=== PATIENT | female | born 1950 | race Caucasian/White ===

== ENCOUNTER 2020-11-20 10:04 | Emergency (ER) | payer MEDICARE, SELFPAY ==
--- NOTE | ~2020-11-20 | XR_ITS ---
XR forearm RT 2V DATE: 11/20/2020 10:28 INDICATION: Fall. Right arm pain, limited range of motion TECHNIQUE: 3 views COMPARISON: None FINDINGS: Comminuted intra-articular radial head and neck fracture with up to approximately 1.7 mm de pression of the medial radial head fragment. No other fracture or dislocation of the radius or ulna is evident. Normal alignment at the elbow and wrist joints. Prominent benign cyst of the lunate bone. IMPRESSION: Radial head and neck fracture Reviewed, dictated and finalized at location A.
--- NOTE | ~2020-11-20 | XR_ITS ---
XR hand RT 2V DATE: 11/20/2020 10:28 INDICATION: Fall. Right upper extremity pain, limited motion TECHNIQUE: 3 views of right hand COMPARISON: None FINDINGS: There is mild chondrocalcinosis at the triangular cartilage. Prominent benign cyst of the l unate bone. Osteoarthritic change at the interphalangeal joints primarily. No fracture or dislocation, periosteal reaction or bone destruction is detected. 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
[2020-11-20 10:13] VITALS: BP 175/62; PULSE 61; RESP 18; TEMP 35.9; O2SAT 99
--- NOTE | 2020-11-20 10:26 | WC.ED.TRAUMA ---
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 Chief complaint is her right arm pain, , abrasions to knees and ankle pain. Patient will be x-rayed for her arm and sent to [place] for further evaluation of head trauma. Patient states there was no LOC, and incident occurred POA Complex medical history including and over the intestine and multiple neurological lesions one at C7 1 in the left humeral area. She has a colostomy. She takes infusions monthly. Is treated at [facility] Related Data Home Medications Medication Instructions Recorded Confirmed gabapentin 11/20/20 olmesartan-hydrochlorothiazide tablet 11/20/20 oxybutynin chloride 11/20/20 simvastatin mg 11/20/20 Allergies Allergy/AdvReac Type Severity Reaction Status Date / Time ezetimibe Allergy Unknown Verified 06/02/14 08:42 ramipril Allergy Unknown Verified 06/02/14 08:42 simvastatin Allergy Unknown Verified 06/02/14 08:42 Review of Systems Review of Systems: Narrative: CONSTITUTIONAL: Denies fever, chills, sweats. EYES: Denies visual changes, redness, discharge. ENT: Denies rhinorrhea, congestion, sore throat, otalgia. CARDIOVASCULAR: Denies chest pain, palpitations, edema. RESPIRATORY: Denies dyspnea, wheezing, cough GASTROINTESTINAL: Denies abdominal pain, nausea, vomiting, diarrhea. GENITOURINARY: Denies dysuria, hematuria, abnormal discharge SKIN: Denies rash or itching. NEUROLOGIC: Denies numbness, or focal weakness. PSYCHIATRIC: Denies anxiety or depression. Right arm pain Hematoma to forehead Abrasion to knees PMFSH Past Medical History Medical History (Updated 11/20/20 @ 10:55 by Ashleigh Wallace CNP) Adenoma of ascending colon High cholesterol HTN (hypertension) Neuropathy Exam Narrative: Exam Narrative: GENERAL: This is a well-nourished, well-developed patient, in moderate distress. HEAD: normocephalic, .Large hematoma on right forehead EYES: PERRL. Sclera clear/white. Vision is grossly intact. EARS: External ears normal, . Hearing grossly intact. NOSE: External nose normal without nasal discharge, nares without redness, THROAT: Mucous membranes moist, NECK: Neck supple, non-tender CARDIOVASCULAR: Regular rate and rhythm without murmurs, gallops, or rubs. RESPIRATORY: Clear to auscultation. Breath sounds equal bilaterally. No wheezes, rales, or rhonchi. GASTROINTESTINAL: Abdomen soft, -patient reports colostomy on left SKIN: warm, multiple abrasions on left medial ankle right knee back of right forearm NEURO: awake, alert, and oriented to person, place and time. There were no obvious focal neurologic abnormalities. Steady gait EXTREMITIES: Normal range of motion of -, patient has pain in the right elbow and forearm and cannot move fingers and wrist radial pulse intact 2+ capillary refill l BACK: Nontender without deformity Course Course Emergency Course: Patient comes to [facility] after falling down flight of stairs will be transferred for head CT after disposition of right arm Xray R hand negative for fracture X-ray right arm shows a radial head neck fracture with no dislocation and normal alignment at the elbow and wrist joints Sugar tong OCL placed by RN and thermoplastic technician Neurovascularly intact before and after OCL placement Patient transferred to [place] Vital Signs Vital signs: Vital Signs Temperature 96.7 F L 11/20/20 10:13 Pulse Rate 61 11/20/20 10:13 Respiratory Rate 18 11/20/20 10:13 Blood Pressure 175/62 H 11/20/20 10:13 Pulse Oximetry 99 11/20/20 10:13 Temperature 96.7 F L 11/20/20 10:13 Pulse Rate 61 11/20/20 10:13
== END 2020-11-20 11:20 | disposition short-term general hospital (02) ==
PROVIDERS: Emergency Provider Nurse Practitioner; PCP Internal Medicine
DX: S90.512A Abrasion, left ankle, initial encounter (principal); S80.211A Abrasion, right knee, initial encounter; S50.811A Abrasion of right forearm, initial encounter; S52.124A Nondisplaced fracture of head of right radius, initial encounter for closed fracture; S00.83XA Contusion of other part of head, initial encounter; W10.9XXA Fall (on) (from) unspecified stairs and steps, initial encounter; E78.00 Pure hypercholesterolemia, unspecified; I10 Essential (primary) hypertension; G62.9 Polyneuropathy, unspecified; Z85.00 Personal history of malignant neoplasm of unspecified digestive organ; Z92.21 Personal history of antineoplastic chemotherapy; Z93.3 Colostomy status
CPT/HCPCS: 29125; 73090; 73120; 99204; A4565; G0463

== ENCOUNTER 2023-12-01 09:51 | Emergency (ER) | payer MEDICARE, SELFPAY ==
--- NOTE | 2023-12-01 10:07 | ED.URI ---
HPI - URI/Sore Throat General Chief Complaint: Upper Respiratory Infection Stated Complaint: Sinus Time Seen by Provider: 12/01/23 10:24 Source: patient, RN notes reviewed and old records reviewed Mode of arrival: ambulatory Limitations: no limitations History of Present Illness HPI Narrative: 73-year-old female presents to the [facility] with approximately a 10 day history of sinus congestion, postnasal drainage, ear drainage in pain. Reports taking DayQuil Related Data Home Medications Medication Instructions Recorded Confirmed gabapentin 600 mg tablet 600 mg PO TID 11/20/20 12/01/23 oxybutynin chloride 5 mg tablet 5 mg PO DAILY 11/20/20 12/01/23 amlodipine 5 mg tablet 5 mg PO DAILY 12/01/23 12/01/23 denosumab 120 mg/1.7 mL (70 mg/mL) 120 mg subcut ONCE 12/01/23 12/01/23 subcutaneous solution (Xgeva) duloxetine 30 mg capsule,delayed 30 mg PO DAILY 12/01/23 12/01/23 release ergocalciferol (vitamin D2) 1,250 1,250 mcg PO WEEKLY 12/01/23 12/01/23 mcg (50,000 unit) capsule levothyroxine 88 mcg tablet 88 mcg PO DAILY 12/01/23 12/01/23 losartan 25 mg tablet 25 mg PO DAILY 12/01/23 12/01/23 octreotide acetate 100 mcg/mL (1 100 mcg subcut Q8H 12/01/23 12/01/23 mL) injection syringe ondansetron HCl 8 mg tablet 9 mg PO DAILY 12/01/23 12/01/23 Allergies Allergy/AdvReac Type Severity Reaction Status Date / Time ezetimibe Allergy Unknown Verified 06/02/14 08:42 ramipril Allergy Unknown Verified 06/02/14 08:42 simvastatin Allergy Unknown Verified 06/02/14 08:42 Review of Systems Review of Systems: All systems reviewed & are unremarkable except as noted in HPI and below Constitutional: Constitutional: Reports no additional constitutional complaints Eyes: Eyes: Reports no additional eye complaints ENT: Reports as per HPI Cardiovascular: Cardiovascular: Reports no additional cardiovascular complaints, Denies chest pain and Denies dyspnea Respiratory: Respiratory: Reports as per HPI, Reports no additional respiratory complaints, Denies chest congestion, Reports cough and Denies dyspnea Gastrointestinal: Gastrointestinal: Reports no additional gastrointestinal complaints, Denies abdominal pain, Denies nausea and Denies vomiting Musculoskeletal: Musculoskeletal: Reports no additional musculoskeletal complaints Integumentary/Breasts: Skin/Breast: Reports system reviewed and no additional complaints, except as docu Neurologic: Reports system reviewed and no additional complaints, except as documented Psychiatric: Psychiatric: Reports no additional psychiatric complaints Allergic/Immunologic: Allergic/Immunologic: Reports no additional allergic/immunologic complaints PMFSH Past Medical History Medical History Adenoma of ascending colon High cholesterol HTN (hypertension) Neuropathy Comments At the time of my signature, I reviewed and agree with the nursing past medical, surgical, social, and family history. There is no relevant family history pertinent to the patient complaint. Exam Const: General: cooperative, healthy appearing, comfortable, no acute distress, well developed, alert and well nourished Nutritional Appearance: well nourished Orientation/consciousness: patient oriented x3 Limitations: no limitations HENMT: Head: normal to inspection Ears: hearing grossly normal bilaterally, external ears normal, EAC's normal, mastoids normal, no periauricular adenopathy and TM abnormal bulging on the right and erythematous on the right Face/Nose/Sinus: Normal external nose present, Normal nares present, Abnormal mucous membranes and turbinates present boggy and erythematous, normal facial exam and face symmetric Face and sinus: normal facial exam, face symmetric and sinus tenderness frontal and maxillary Throat: posterior oropharynx normal, uvula midline and no uvular edema Eyes: General: appearance normal, both eyes and all related structures Alignment
[2023-12-01 10:08] VITALS: BP 140/73; PULSE 103; RESP 18; TEMP 36.9; O2SAT 97
== END 2023-12-01 10:38 | disposition home or self-care (01) ==
PROVIDERS: Emergency Provider Nurse Practitioner; PCP Internal Medicine
DX: H66.91 Otitis media, unspecified, right ear (principal); J01.40 Acute pansinusitis, unspecified; Z20.822 Contact with and (suspected) exposure to COVID-19; E78.00 Pure hypercholesterolemia, unspecified; I10 Essential (primary) hypertension; G62.9 Polyneuropathy, unspecified
CPT/HCPCS: 87081; 87426; 87804; 87880; 99213; G0463

== ENCOUNTER 2024-06-21 10:28 | Emergency (ER) | payer MEDICARE, SELFPAY ==
[2024-06-21] VITALS (26 sets, daily range): BP systolic 87–129; BP diastolic 45–76; PULSE 84–113; RESP 12–43; TEMP 37.1; O2SAT 92–100
--- NOTE | ~2024-06-21 | CT_ITS ---
Non-contrast Head CT History: Head injury, status post fall Technique: Axial non-contrast imaging of the brain was performed. Dose reduction technique was used on this scan by utilizing automated exposure control and iterative reconstruction technique. The dose -length product (DLP) was 756.67 mGy-cm. Findings: There is no evidence of intracranial hemorrhage, mass lesion, or acute infarct. Brain par enchyma appears normal. The ventricles and subarachnoid spaces are normal in size. The calvarium ap pears normal. The visualized paranasal sinuses and mastoid air cells are clear. Impression: No significant abnormality seen. Reviewed, dictated and finalized at [facility]. [employer] ASSISTANT Impression: No significant abnormality seen.
--- NOTE | 2024-06-21 11:46 | ED_ITS ---
HPI - Dizziness General Chief Complaint: Dizziness Stated Complaint: dizzy, fall Time Seen by Provider: 06/21/24 11:11 History of Present Illness HPI Narrative: 73-year-old female presenting after a fall. Patient was just discharged from [place] yesterday after receiving treatment for a neuroendocrine tumor. She had a ureteral stent placed due to new hydronephrosis related to lymphadenopathy. She was also treated for dehydration. States that she felt pretty well when she went home last night but then she had some lightheadedness and she fell in the bathroom. States that she thinks that she brushed her face against her night stand but denies losing consciousness. Complains of some nausea and poor appetite but no further complaints. No chest pain or shortness of breath. No leg swelling. Related Data Home Medications ?Medication ?Instructions ?Recorded ?Confirmed ?Last Taken ?Type gabapentin 600 mg tablet 600 mg PO TID 11/20/20 12/01/23 Unknown History oxybutynin chloride 5 mg tablet 5 mg PO DAILY 11/20/20 12/01/23 Unknown History amlodipine 5 mg tablet 5 mg PO DAILY 12/01/23 12/01/23 Unknown History denosumab 120 mg/1.7 mL (70 mg/mL) 120 mg subcut ONCE 12/01/23 12/01/23 Unknown History subcutaneous solution (Xgeva) duloxetine 30 mg capsule,delayed 30 mg PO DAILY 12/01/23 12/01/23 Unknown History release ergocalciferol (vitamin D2) 1,250 1,250 mcg PO WEEKLY 12/01/23 12/01/23 Unknown History mcg (50,000 unit) capsule levothyroxine 88 mcg tablet 88 mcg PO DAILY 12/01/23 12/01/23 Unknown History losartan 25 mg tablet 25 mg PO DAILY 12/01/23 12/01/23 Unknown History octreotide acetate 100 mcg/mL (1 100 mcg subcut Q8H 12/01/23 12/01/23 Unknown History mL) injection syringe ondansetron HCl 8 mg tablet 9 mg PO DAILY 12/01/23 12/01/23 Unknown History Allergies Allergy/AdvReac Type Severity Reaction Status Date / Time morphine Allergy Intermediate Blister Verified 06/21/24 10:50 ezetimibe Allergy Unknown Unknown Verified 06/21/24 10:50 ramipril Allergy Unknown Unknown Verified 06/21/24 10:50 simvastatin Allergy Unknown Unknown Verified 06/21/24 10:50 Review of Systems 2 Review of Systems: All systems reviewed & are unremarkable except as noted in HPI and below PMFSH Past Medical History Medical History Adenoma of ascending colon Neuropathy High cholesterol HTN (hypertension) Exam 2 Narrative: GENERAL: Nontoxic, no acute distress, pleasant and cooperative HEAD: Normocephalic, atraumatic. EYES: PERRLA and EOMI. ENT: Grossly unremarkable NECK: Supple. CHEST: Clear to auscultation. No respiratory distress. HEART: Regular rate and rhythm. ABDOMEN: Soft, nontender, + ostomy in place EXTREMITIES: Normal range of motion. No edema. SKIN: Warm, dry, no rash. NEURO: No focal deficits. Alert and oriented x3. PSYCH: Normal mood and affect. Course Vital Signs Vital signs: Vital Signs Temperature 98.8 F 06/21/24 10:36 Pulse Rate 96 06/21/24 10:36 Respiratory Rate 19 06/21/24 10:36 Blood Pressure 110/45 L 06/21/24 10:36 Pulse Oximetry 98 06/21/24 10:36 Oxygen Delivery Room Air 06/21/24 10:36 Temperature 98.8 F 06/21/24 10:36 Pulse Rate 99 06/21/24 15:22 Respiratory Rate 19 06/21/24 10:36 Blood Pressure 108/76 06/21/24 15:22 Pulse Oximetry 98 06/21/24 10:36 Oxygen Delivery Room Air 06/21/24 10:36 MDM - Dizziness MDM Narrative Medical decision making narrative: 73-year-old female presenting after a fall from lightheadedness. Vitals are within normal limits. Exam remarkable for the above. Initial orthostatic vital signs are positive. 2 L of fluids have been ordered. Blood work with potassium of 2.9. Oral repletion has been ordered. Orthostatic vital signs following IV fluids are now normal. Patient feels much better. She would like to go home. Discussed trying to increase her potassium rich foods and maybe adding some electrolyte drinks. Advised close follow-up with her [facility] physicians. She and her family are agreeable with this plan. Discharged in stable condition. Lab Data 06/21/24 12:00 06/21/24 12:00 Labs: Lab Results 06/21/24 Range/Units 12:00 WBC 8.3 (4.5-10.0) K/mm3 RBC 3.28 L (4.2-5.4) M/mm3 Hgb 10.4 L (12.0-15.0) g/dL Hct 31.5 L (37.0-47.0) % MCV 96.0 (80-100) fl MCH 31.7 (26-34) pg MCHC 33.0 (32-36) g/dl RDW 14.4 (11.5-14.5) % Plt Count 114 L (150-375) k/mm3 MPV 9.6 (7.4-10.4) fl Immature Gran % (Auto) 1.1 H (0-0.5) % Neut % (Auto) 66.9 (45.5-73.1) % Lymph % (Auto) 20.9 (18.3-44.2) % [place] % (Auto) 10.8 H (2.6-8.5) % Eos % (Auto) 0.1 (0-4.4) % Baso % (Auto) 0.2 (0.2-1.2) % Lymph # (Auto) 1.74 (0.9-3.2) K/mm3 [place] # (Auto) 0.9 H (0.1-0.6) K/mm3 Eos # (Auto) 0.0 (0-0.3) K/mm3 Baso # (Auto) 0.0 (0.0-0.1) K/mm3 Abs Immat Gran (auto) 0.09 H (0.00-0.031) K/mm3 Absolute Neuts (auto) 5.6 (1.3-6.7) K/mm3 Absolute Nucleated RBC 0.000 (0.0-0.012) K/mm3 Nucleated RBC % 0.0 (0.0-0.2) % % Immature Plt Fraction 4.0 (0.9-11.2) % Sodium 131 L (137-145) mmol/L Potassium 2.9 L (3.4-5.0) mmol/L Chloride 103 (98-107) mmol/L Carbon Dioxide 25 (22-30) mmol/L Anion Gap 3 L (4-12) mmol/L BUN 15 (7-17) mg/dL Creatinine 1.40 H (0.7-1.0) mg/dL Estim Creat Clear Calc 30 ml/min Estimated GFR 37 L (59 - ) Glucose 148 H (65-110) mg/dL Calcium 7.5 L (8.4-10.2) mg/dL Magnesium 2.1 (1.6-2.3) mg/dL Total Bilirubin 1.4 H (0.2-1.3) mg/dL AST 973 H (14-36) U/L ALT 636 H (6-35) U/L Alkaline Phosphatase 119 (38-126) U/L Total Protein 6.0 L (6.3-8.2) g/dL Albumin 3.1 L (3.5-5.1) g/dL Lipase 59 (23-300) U/L Imaging Data Radiologist's impression: ITS Impressions Head CT 06/21/24 13:04 Impression: No significant abnormality seen. Critical Care Time Critical Care Time Critical Care Time: No Discharge Plan Discharge Clinical Impression: Orthostatic hypotension, Fall, Hypokalemia Patient Disposition: Home, Self-Care Condition: Stable Instructions: Antibiotic Form, Hypokalemia (ED), Near Syncope (ED) Additional Instructions: You received IV fluids and oral potassium repletion today. Please try to drink electrolyte beverages like Gatorade, Powerade, Pedialyte. Please follow-up closely with your outpatient physicians. If your symptoms worsen or other concerning symptoms arise, please return to the ER. Patient Language: Latvian Prescriptions: No Action gabapentin 600 mg tablet 600 mg PO TID oxybutynin chloride 5 mg tablet 5 mg PO DAILY ondansetron HCl 8 mg tablet 9 mg PO DAILY amlodipine 5 mg tablet 5 mg PO DAILY levothyroxine 88 mcg tablet 88 mcg PO DAILY losartan 25 mg tablet 25 mg PO DAILY ergocalciferol (vitamin D2) 1,250 mcg (50,000 unit) capsule 1,250 mcg PO WEEKLY Xgeva 120 mg/1.7 mL (70 mg/mL) Solution 120 mg SUBCUT ONCE octreotide acetate 100 mcg/mL (1 mL) Syringe 100 mcg SUBCUT Q8H duloxetine 30 mg Capsule,Delayed Release(Dr/Ec) 30 mg PO DAILY amoxicillin-pot clavulanate 875-125 mg tablet 1 tablet PO Q12H Qty: 20 0RF Follow-up/Referrals: Finn,MD Julio César [Primary Care Provider] -
[2024-06-21 12:10] LABS: Basophils Percent Auto 0.2 % (0.2-1.2); Eosinophils Percent Auto 0.1 % (0-4.4); Hematocrit 31.5 % (37.0-47.0); Hemoglobin 10.4 g/dL (12.0-15.0); Immature Granulocyte Absolute 0.09 K/mm3 (0.00-0.031); Immature Granulocyte Percent A 1.1 % (0-0.5); Lymphocytes Absolute Auto 1.74 K/mm3 (0.9-3.2); Lymphocytes Percent Auto 20.9 % (18.3-44.2); Mean Corpuscular Hemoglobin 31.7 pg (26-34); Mean Platelet Volume 9.6 fl (7.4-10.4); Monocytes Absolute Auto 0.9 K/mm3 (0.1-0.6); Monocytes Percent Auto 10.8 % (2.6-8.5); Neutrophils Absolute Auto 5.6 K/mm3 (1.3-6.7); Neutrophils Percent Auto 66.9 % (45.5-73.1); Platelet Count Result 114 k/mm3 (150-375); Red Blood Count 3.28 M/mm3 (4.2-5.4); Red Cell Distribution Width 14.4 % (11.5-14.5); White Blood Count 8.3 K/mm3 (4.5-10.0)
[2024-06-21 12:21] LABS: Alanine Aminotransferase 636 U/L (6-35); Albumin Level 3.1 g/dL (3.5-5.1); Alkaline Phosphatase 119 U/L (38-126); Anion Gap 3 mmol/L (4-12); Bilirubin,Total 1.4 mg/dL (0.2-1.3); Blood Urea Nitrogen 15 mg/dL (7-17); Calcium 7.5 mg/dL (8.4-10.2); Carbon Dioxide 25 mmol/L (22-30); Chloride 103 mmol/L (98-107); Estimated CRCL calculation 30 ml/min; Estimated Glomerular Filt Rate 37; Glucose 148 mg/dL (65-110); Lipase 59 U/L (23-300); Magnesium 2.1 mg/dL (1.6-2.3); Potassium 2.9 mmol/L (3.4-5.0); Sodium 131 mmol/L (137-145)
[2024-06-21 12:25] LABS: Aspartate Amino Transferase 973 U/L (14-36)
[2024-06-21] MEDS: SODIUM CHLORIDE 0.9% IV 1,000 ML 999 ML IV CONT ×2 (12:44→14:08)
[2024-06-21] MEDS: POTASSIUM CHLORIDE 20 MEQ ER TABLET 40 MEQ PO (12:44)
[2024-06-21] MEDS: ONDANSETRON INJ 4 MG/2 ML VIAL IV PUSH (16:04)
--- OUTSIDE RECORDS SUMMARY | 2024-06-25 22:00 | XMS_ITS | Data Portability ---
Author Organization [facility], Main Office Address [address] [place] [address] Care Team Providers Care Emulsion Operator Name Role Phone KATLYN BRISENO Primary Care Provider [phone] KATLYN BRISENO Referring Provider Assessment Encounter Date Assessment Date Assessment LastModified by Organization Details LastModified Time 12/27/2022 12/27/2022 Will treat with doxycycline and she will call if not improved [email or web address] Not available 01/12/2023 15:20:17 07/30/2023 07/30/2023 Will continue current therapy her medicines have been reviewed follow-up in 4 months [email or web address] Not available 08/02/2023 21:24:43 Plan of Treatment Reminders Order Date Submit Date Provider Last Modified By Organization Details Last Modified Time Details Appointments None recorded. Lab None recorded. Referral pipe jeeper referral 2022 023 [email or web address] Nasim Rojas MD, [address], [address], [place], [address], 3 16:55:09 Procedures None recorded. Surgeries None recorded. Imaging None recorded. Medication Orders doxycycline hyclate 100 mg capsule 2022 023 [email or web address] 45 [id number], [address], [place], [place], [id number], 4 14:29:22 Ciprodex 0.3 %-0.1 % ear drops,suspe nsion 2023 024 ENE [facility] #[id number], [address], [place], [place], [id number], 11:27:07 ipratropium bromide 42 mcg (0.06 %) nasal spray 2023 024 ENE [id number], [address], [place], [place], [id number], 11:27:05 Patient TargetsNo targets recorded. Patient Instructions Encounter Date Encounter Id Patient Instructions Last Modified By Organization Details Last Modified Time 04/28/2024 [id number] IF SYMPTOMS PERSIST OR WORSEN AFTER COMPLETION OF MEDICATION PLEASE RETURN TO THE OFFICE FOR FURTHER EVALUATION. [email or web address] Not available 04/28/2024 11:27:20 Reason for Referral Clinic Office Assistant Referral for Perfo ration of right tympanic membrane Referring Physician: Zev Baum, Otolaryngology, Encounter Date: 10/11/2022 Results Created Date Observation Date Name Description Value Unit Range Abnormal Flag Note LastModifiedBy Organization Detail LastModifiedTime 08/23/19 23 08/23/2022 SARS- COV-2 RNA(C OVID1 9),RT -PCR sars-cov-2 RNA(covid19) ,RT-PCR negati ve This test has been autho rized by the FDA under an Emerg ency Use Autho rizat ion (EUA) for use by autho rized labor atori es. Negat sybil resul ts do not precl ude SARS- CoV-2 and shoul d not be used as the sole basis for treat ment or other patie nt manag ement decis ions. Test resul ts shoul d be corre lated with the clini khurram histo ry, epide miolo gical data, and other data avail able to the clini astrid evalu ating the patie nt. Taylor cintron the Fact Sheet s for healt h care provi ders and patie nts at the [facility]: https ://ww w.fda .gov/ media /3880 12/do wnloa d https ://ww w.fda .gov/ media /1367 13/do wnloa d https ://ww w.fda .gov/ media /1421 92/do wnloa d https ://ww w.fda .gov/ media /1421 91/do wnloa d Metho dolog y: Real- Time RT-PC R Not Available [facility] (Lab) [address] [place], [address], 08/23/2022 14:40:33 08/23/19 23 08/23/2022 INFLU KELSEY A/B ANTIG EN RAPID flu A negati ve negati ve Not Available [facility] (Lab) [address] [place], [address], 08/23/2022 14:31:15 08/23/19 23 08/23/2022 INFLU KELSEY A/B ANTIG EN RAPID flu B negati ve negati ve THIS TEST CAN NOT DISTI NGUIS H INFLU KELSEY A VIRUS SUBTY PES. ALSO, PLEAS E NOTE THAT A NEGAT SYBIL RESUL T DOES NOT EXCLU DE INFLU KELSEY VIRUS INFEC TION. IF MORE CONCL USIVE TESTI NG IS CHAD ED, FOLLO W-UP CONFI RMATO RY TESTI NG WITH RT-PC R IS ISABEL BOJORQUEZ. 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 Not Available [facility] (Lab) [address] [place], [address], 08/23/2022 14:31:15 08/23/19 23 08/23/2022 RAPID STREP A DNA strep A DNA, CRISTHIAN negati ve negati ve Not Available [facility] (Lab) [address] [place], [address], 08/23/2022 14:23:19 05/17/20 23 05/17/2023 URINA LYSIS /IRIS W/O MICRO color YELLOW Not Available [facility] (Lab) [address] [place], [address], 05/17/2023 16:31:30 05/17/20 23 05/17/2023 URINA LYSIS /IRIS W/O MICRO appear TURBID abnormal Not Available [facility] (Lab) [address] [place], [address], 05/17/2023 16:31:30 05/17/20 23 05/17/2023 URINA LYSIS /IRIS W/O MICRO specific gravity 1.023 1.001- 1.030 Not Available [facility] (Lab) [address] [place], [address], 05/17/2023 16:31:30 05/17/20 23 05/17/2023 URINA LYSIS /IRIS W/O MICRO pH 5.5 pH_un its 5.0-9. 0 Not Available [facility] (Lab) [address] [place], [address], 05/17/2023 16:31:30 05/17/20 23 05/17/2023 URINA LYSIS /IRIS W/O MICRO leukocytes 25 fabien/u L negati ve- abnormal Not Available [facility] (Lab) [address] [place], [address], 05/17/2023 16:31:30 05/17/20 23 05/17/2023 URINA LYSIS /IRIS W/O MICRO nitrite NEGATI VE negati ve- Not Available [facility] (Lab) [address] [place], [address], 05/17/2023 16:31:30 05/17/20 23 05/17/2023 URINA LYSIS /IRIS W/O MICRO protein 20 mg/dL negati ve- abnormal Not Available [facility] (Lab) [address] [place], [address], 05/17/2023 16:31:30 05/17/20 23 05/17/2023 URINA LYSIS /IRIS W/O MICRO glucose NORMAL mg/dL normal - Not Available [facility] (Lab) [address] [place], [address], 05/17/2023 16:31:30 05/17/20 23 05/17/2023 URINA LYSIS /IRIS W/O MICRO ketones NEGATI VE mg/dL negati ve- Not Available [facility] (Lab) [address] [place], [address], 05/17/2023 16:31:30 05/17/20 23 05/17/2023 URINA LYSIS /IRIS W/O MICRO urobilinogen NORMAL mg/dL normal - Not Available [facility] (Lab) [address] [place], [address], 05/17/2023 16:31:30 05/17/20 23 05/17/2023 URINA LYSIS /IRIS W/O MICRO bilirubin NEGATI VE mg/dL negati ve- Not Available [facility] (Lab) [address] [place], [address], 05/17/2023 16:31:30 05/17/20 23 05/17/2023 URINA LYSIS /IRIS W/O MICRO blood 0.2 mg/dL negati ve- abnormal Not Available [facility] (Lab) [address] [place], [address], 05/17/2023 16:31:30 10/09/19 23 10/08/2022 audio gram + tympa nogra m No observ ation record ed. [email or web address] [facility] [address], [place], [address], 10/10/2022 08:32:54 10/12/19 audio gram + tympa nogra m No observ ation record ed. [email or web address] Not Available 2022 08:54:56 06/14/20 23 06/13/2023 MAMMO , scree danielle, digit al, bilat eral No observ ation record ed. cyahl [facility] [address] [place] [address], [address], 06/16/2023 09:35:07 Result Notes None recorded. Problems Name Problem SNOMED Code Status Onset Date Resolution Date Notes Provider Name and Address Organization Details Recorded Time Perforati on of tympanic membrane 48910952 Active 2022 Not Available [facility] 3 06:30:57 Perforati on of right tympanic membrane 57166423534 68491 Active 2022 Not Available [facility] 3 06:30:56 Mixed conductiv e AND sensorine ural hearing loss 78676752 Active 2022 Not Available [facility] 3 06:30:57 Eruption 526166268 Active 2022 Not Available [facility] 3 06:30:56 Acute urinary tract infection 324870962 Active 2022 Not Available [facility] 3 06:30:57 Hypothyro idism 05815505 Active 2023 Katlyn Briseno MD [address] [facility] [address], [place], [address] , [facility] [employer] [facility] 4 21:24:38 Anterior rhinorrhe a 212126522 Active 2023 CIARA Mueller [address], [facility] [address], [place], [address] , [facility] 4 11:26:05 Acute otitis externa 72207061 Active 2023 Kathy Boyer, 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 CUTTER MACHINE OPERATOR [address] [facility] [address], [address], [address] , [facility] 4 11:26:21 Benign essential hypertens ion 7229492 Active Not Available [facility] 3 06:30:56 Hearing loss 43585619 Active 2021 Not Available [facility] 3 06:30:56 Pain in both feet 31739983260 853869 Active 2021 Not Available [facility] 3 06:30:56 Abdominal pain 33670776 Active Not Available [facility] 3 06:30:56 Osteoarth ritis of knee 488738759 Active Not Available [facility] 3 06:30:56 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 Not Available [facility] 3 06:30:56 Muscle weakness 42532447 Active 2021 Not Available [facility] 3 06:30:56 Pure hyperchol esterolem ia 607356545 Active Not Available [facility] 3 06:30:56 Shoulder joint pain 039146224 Active Not Available [facility] 3 06:30:56 Low back pain 307975345 Active Not Available [facility] 3 06:30:56 Mass of ovary 396449007 Active Not Available [facility] 3 06:30:56 Knee pain Active Not Available [facility] 3 06:30:56 Pain in right foot 41660686472 9107 Active 2021 Not Available [facility] 3 06:30:57 Vitamin D deficienc y 93642064 Completed Not Available [facility] 3 04:49:15 Depressiv e disorder 23314710 Active 2021 Not Available [facility] 3 06:30:57 Hypertens sybil disorder 27879012 Active 05/06/ 2022 Not Available [facility] 3 06:30:57 Disorder of vitamin D 981196211 Active Not Available [facility] 3 06:30:57 Enthesopa thy of knee 45332768 Active Not Available [facility] 3 06:30:57 Vertigo 684775323 Active 2021 Not Available [facility] 3 06:30:57 Blepharit is 71894817 Active Not Available [facility] 3 06:30:57 Nausea 586206611 Active 2021 Not Available [facility] 3 06:30:57 Foot pain 08099220 Active Not Available [facility] 3 06:30:57 Presbycus is 35079939 Active 2022 Not Available [facility] 3 06:30:57 Cough 07756364 Active Not Available [facility] 3 06:30:57 Upper respirato ry infection 26308447 Active 2022 Not Available [facility] 3 06:30:57 Acute upper respirato ry infection 85020872 Active 2022 Not Available [facility] 3 06:30:57 Essential hypertens ion 42369213 Active 2021 Not Available [facility] 3 06:30:57 Diarrhea 27018387 Active Not Available [facility] 3 06:30:57 Problem Notes None recorded. Procedures Surgical History Date Name Laterality Status Provider Name and Address Organization Details Recorded Time 06/07/20 23 Eardrum revision completed Yanet Agarwal RN [place] [facility] 04/28/2024 10:51:04 03/10/20 20 Most Recent Bone Density completed Not Available [facility] 09/05/2022 04:42:17 09/24/19 18 colonoscopy completed Not Available [facility] 09/05/2022 04:42:19 06/08/20 14 Total knee arthroplasty completed Not Available [facility] 09/05/2022 04:42:19 Tonsillectomy completed Not Available [facility] 09/05/2022 04:42:19 Hysterectomy completed Not Available [facility] 09/05/2022 04:42:19 Cholecystectomy completed Not Available [facility] 09/05/2022 04:42:19 colostomy completed Not Available [facility] 09/05/2022 04:42:19 Appendectomy completed Not Available [facility] 09/05/2022 04:42:19 Imaging Results Imaging Date Name Status LastModified by Organiz ation Details LastModified Time 10/08/2022 audiogram + tympanogram completed [email or web address] [facility] [address] [place], [address], 10/10/2022 08:32:54 10/11/2022 audiogram + tympanogram completed [email or web address] Information not available 10/11/2022 08:54:56 06/13/2023 MAMMO, screening, digital, bilateral completed cyahl [facility] [address] [place] [address], [address], 06/16/2023 09:35:07 Procedure Notes None recorded. Medical Equipment None Reported. Allergies Allergen ID Allergen Name Allergen Category Reaction Reaction Severity Criticality Documentation Date Start Date Code Code System Note Provider Name and Address Organization Details Recorded Time 71 Vytorin medicatio n myalgias (muscle pain) Not available Not available 09/05/2022 62359 5 RxNorm Not Available [facility] 3 04:56:35 7124 morphine medicatio n Not available Not available Not available 09/05/2022 7052 RxNorm Not Available [facility] 3 04:56:35 7125 Altace medicatio n cough Not available Not available 09/05/2022 31224 8 RxNorm Not Available [facility] 3 04:56:35 Medications Name Sig Start Date Stop Date Status Note LastModified by Organization Details LastModified Time amoxicill in 500 mg capsule TAKE 4 CAPSULES BY MOUTH 1 HOUR BEFORE APPOINTM ENT 04/28 completed Not Available Not Available Not Available gabapenti n 600 mg tablet TAKE 1 TABLET BY MOUTH THREE TIMES A DAY 04/05 completed PT STOPPED ON HER OWN Not Available Not Available Not Available doxycycli ne hyclate 100 mg capsule TAKE 1 CAPSULE BY MOUTH TWICE DAILY FOR 7 DAYS active Not Available Not Available No t Available azithromy radha 250 mg tablet TAKE 1 DOSE PACK BY MOUTH DIRECTED 10/11 completed Not Available Not Available Not Available benzonata te 200 mg capsule TAKE 1 CAPSULE BY MOUTH THREE TIMES A DAY 12/27 completed Not Available Not Available Not Available sulfameth oxazole 400 mg-trimet hoprim 80 mg tablet TAKE 1 TABLET BY MOUTH EVERY 12 HOURS 11/11 completed Not Available Not Available Not Available hydrocodo ne 5 mg-acetam inophen 325 mg tablet 07/30 completed Not Available Not Available Not Available ondansetr on HCl 8 mg tablet TAKE 1 TABLET BY MOUTH EVERY 8 HOURS NEEDED FOR NAUSEA OR VOMITING . active Not Available Not Available No t Available ondansetr on HCl 4 mg tablet active Not Available Not Available No t Available Medrol (Alfred) 4 mg tablets in a dose pack TakeMDP by oral route as directed 12/14 completed Not Available Not Available Not Available prednison e 20 mg tablet TAKE 2 TABLETS BY MOUTH EVERY DAY FOR 5 DAYS 04/05 completed Not Available Not Available Not Available Synthroid 100 mcg tablet active Not Available Not Available Not Available valsartan 160 mg-hydroc hlorothia zide 12.5 mg tablet 05/08 completed Not Available Not Available Not Available diphenoxy late-atro pine 2.5 mg-0.025 mg tablet TAKE 1 TABLET BY MOUTH 4 (FOUR) TIMES A DAY NEEDED FOR DIARRHEA 08/11 completed Not Available Not Available Not Available metronida zole 500 mg tablet 07/18 completed Not Available Not Available Not Available amlodipin e 5 mg tablet TAKE 1 TABLET BY MOUTH EVERY DAY NEEDED active Not Available Not Available No t Available prochlorp erazine maleate 10 mg tablet TAKE 1 TABLET BY MOUTH EVERY 6 HOURS NEEDED FOR NAUSEA. 07/30 completed Not Available Not Available Not Available ciproflox acin 500 mg tablet 04/28 completed Not Available Not Available Not Available ondansetr on 8 mg disintegr ating tablet TAKE 1 TABLET BY MOUTH EVERY 8 HOURS NEEDED FOR NAUSEA OR VOMITING . 04/28 completed Not Available Not Available Not Available lidocaine -prilocai ne 2.5 %-2.5 % topical cream PLEASE SEE ATTACHED FOR DETAILED DIRECTIO NS active Not Available Not Available No t Available levothyro xine 75 mcg tablet TAKE 1 TABLET (75 MCG TOTAL) BY MOUTH [facility] BEFORE BREAKFAS T 10/11 completed Not Available Not Available Not Available valsartan 80 mg-hydroc hlorothia zide 12.5 mg tablet TAKE 1 TABLET DAILY DIRECTED active Not Available Not Available No t Available oxycodone -acetamin ophen 5 mg-325 mg tablet 11/13 completed Not Available Not Available Not Available levothyro xine 88 mcg tablet TAKE 1 TABLET (88 MCG TOTAL) BY MOUTH [facility] BEFORE BREAKFAS T active Not Available Not Available No t Available ofloxacin 0.3 % ear drops PLACE 4 DROPS INTO RIGHT EAR TWICE DAILY 7 DAYS POST OP 07/30 completed Not Available Not Available Not Available amoxicill in 875 mg tablet 07/30 completed Not Available Not Available Not Available prednisol one acetate 1 % eye drops,khushboo pension INSTILL 1 DROP INTO BOTH EYES THREE TIMES DAILY FOR 1 WEEK 07/30 completed Not Available Not Available Not Available ciproflox acin 0.3 % eye drops 07/30 completed Not Available Not Available Not Available hydrocodo ne 7.5 mg-acetam inophen 325 mg tablet 03/21 completed Not Available Not Available Not Available cephalexi n 500 mg capsule active Not Available Not Available Not Available pantopraz ole 40 mg tablet,de layed release Take 1 tablet every day by oral route. active Not Available Not Available No t Available simvastat in 20 mg tablet TAKE 1 TABLET BY MOUTH EVERY DAY active Not Available Not Available No t Available ferrous sulfate 325 mg (65 mg iron) tablet 01/07 completed Not Available Not Available Not Available clotrimaz ole-betam ethasone 1 %-0.05 % topical cream APPLY EXTERNAL LY TO ABDOMEN TWICE DAILY NEEDED 07/12 completed Not Available Not Available Not Available losartan 25 mg tablet TAKE 1 TABLET BY MOUTH EVERY DAY active Not Available Not Available No t Available niacin 500 mg tablet Take 1 tablet twice a day by oral route. 06/06 completed Not Available Not Available Not Available gabapenti n 300 mg capsule 01/22 completed Not Available Not Available Not Available omeprazol e 20 mg capsule,d elayed release Take 1 capsule every day by oral route. 11/07 completed Not Available Not Available Not Available monteluka st 10 mg tablet Take 1 tablet every day by oral route. 10/25 completed pt stopped Not Available Not Available Not Available sodium chloride 0.9 % intraveno us solution active Not Available Not Available Not Available ergocalci ferol (vitamin D2) 1,250 mcg (50,000 unit) capsule TAKE 1 CAPSULE BY MOUTH 1 TIME A WEEK active Not Available Not Available No t Available lorazepam 1 mg tablet 01/22 completed Not Available Not Available Not Available ibuprofen 600 mg tablet 11/13 completed Not Available Not Available Not Available neomycin 500 mg tablet 11/13 completed Not Available Not Available Not Available albuterol sulfate HFA 90 mcg/actua tion aerosol inhaler INHALE 1 PUFF BY MOUTH EVERY 4 HOURS 05/19 completed Not Available Not Available Not Available ipratropi um bromide 42 mcg (0.06 %) nasal spray USE 2 SPRAYS IN EACH NOSTRIL THREE TIMES DAILY active Not Available Not Available No t Available oxybutyni n chloride 5 mg tablet TAKE 1 TABLET BY MOUTH TWICE DAILY active Not Available Not Available No t Available Zoloft 25 mg tablet Take 1 tablet every day by oral route. 11/07 completed Not Available Not Available Not Available fluticaso ne propionat e 50 mcg/actua tion nasal spray,khushboo pension 2 spray each nostril daily 07/12 completed Not Available Not Available Not Available dicyclomi ne 10 mg capsule Take 1 capsule 3 times a day by oral route. 01/22 completed Not Available Not Available Not Available diazepam 5 mg tablet Take 0.5 tablets twice a day by oral route as needed. 11/13 completed Not Available Not Available Not Available amoxicill in 875 mg-potass ium clavulana te 125 mg tablet TAKE 1 TABLET BY MOUTH EVERY 12 HOURS 04/28 completed Not Available Not Available Not Available amoxicill in 500 mg-potass ium clavulana te 125 mg tablet TAKE 1 TABLET BY MOUTH EVERY 8 HOURS UNTIL ALL TAKEN 07/30 completed Not Available Not Available Not Available oxycodone 5 mg tablet 12/27 completed Not Available Not Available Not Available neomycin- polymyxin -hydrocor t 3.5 mg-10,000 unit/mL-1 % ear drops,khushboo p 11/01 /2017 completed Not Available Not Available Not Available valsartan 160 mg-hydroc hlorothia zide 25 mg tablet Take 1 tablet every day by oral route. 02/06 completed Not Available Not Available Not Available Gentle Laxative (bisacody l) 10 mg rectal supposito ry USE DIRECTED 05/13 completed Not Available Not Available Not Available Vitamin C 500 mg capsule,e xtended release Take 1 capsule every day by oral route. 01/07 completed Not Available Not Available Not Available enoxapari n 30 mg/0.3 mL subcutane ous syringe 03/21 completed Not Available Not Available Not Available enoxapari n 40 mg/0.4 mL subcutane ous syringe active Not Available Not Available Not Available olmesarta n 20 mg-hydroc hlorothia zide 12.5 mg tablet Take 1 tablet every day by oral route. 07/30 completed Not Available Not Available Not Available olmesarta n 40 mg-hydroc hlorothia zide 25 mg tablet TAKE 1 TABLET BY MOUTH DAILY 10/25 completed Not Available Not Available Not Available ciproflox acin 0.3 %-dexamet hasone 0.1 % ear drops,khushboo pension INSTILL 4 DROPS INTO RIGHT EAR TWICE DAILY FOR 7 DAYS active Not Available Not Available No t Available cholestyr amine (with sugar) 4 gram powder for susp in a packet 10/25 completed Not Available Not Available Not Available nitrofura ntoin monohydra te/macroc rystals 100 mg capsule TAKE 1 CAPSULE BY MOUTH EVERY 12 HOURS 07/30 completed Not Available Not Available Not Available trospium 20 mg tablet 11/11 completed Not Available Not Available Not Available duloxetin e 30 mg capsule,d elayed release TAKE 1 CAPSULE BY MOUTH EVERY DAY 07/20 completed changed to 60mg daily by Dr Briseno at visit Not Available Not Available Not Available duloxetin e 60 mg capsule,d elayed release active Not Available Not Available Not Available Zofran PRN for nausea 10/25 completed Not Available Not Available Not Available Vitamin C 2020 active Not Available Not Available Not Avai lable Flonase 2021 active Not Available Not Available Not Avai lable vitamin E 02/21 completed Not Available Not Available Not Available clotrimaz ole-betam ethasone 07/30 completed Not Available Not Available Not Available Imodium A-D 2020 active Not Available Not Available Not Avai lable monteluka st 07/30 completed Not Available Not Available Not Available Lomotil active Not Available Not Avail able Not Available Sandostat in 100mcg/m l 2020 active Not Available Not Available Not Avai lable triamcino lone (bulk) 07/30 completed Not Available Not Available Not Available Zostavax (PF) 19,400 unit/0.65 mL subcutane ous suspensio n active Not Available Not Available Not Available hydrochlo rothiazid e 12.5 mg tablet 05/08 completed Not Available Not Available Not Available CoQ-10 active Not Available Not Availa ble Not Available Simcor 1,000 mg-20 mg tablet,ex tended release Take 1 tablet every day by oral route as directed for 90 days. active Not Available Not Available No t Available Toviaz 4 mg tablet,ex tended release 11/11 completed Not Available Not Available Not Available Afinitor 05/19 completed Not Available Not Available Not Available GaviLyte- N 420 gram oral solution 11/13 completed Not Available Not Available Not Available Gavilyte- C 240 gram-22.7 2 gram-6.72 gram-5.84 gram oral solution 01/07 completed Not Available Not Available Not Available Xgeva 120 mg/1.7 mL (70 mg/mL) subcutane ous solution Inject 1.7 mL every 4 weeks by subcutan eous route. active Not Available Not Available No t Available Xgeva 120mg/1. 7 02/21 completed Not Available Not Available Not Available octreotid e acetate 100 mcg/mL (1 mL) injection syringe 05/12 completed Not Available Not Available Not Available Myrbetriq 50 mg tablet,ex tended release 05/12 completed Not Available Not Available Not Available cabozanti nib 20mg tablet 2021 active Cancer trial medicati on i st gives it to him. Not Available Not Available Not Available Fluzone High-Dose (PF) 180 mcg/0.5 mL intramusc ular syringe active Not Available Not Available Not Available Zofran (base) 12/27 completed Not Available Not Available Not Available Fluzone High-Dose (PF) 180 mcg/0.5 mL intramusc ular syringe active Not Available Not Available Not Available Proctosol HC 2.5 % topical cream perineal applicato r active Not Available Not Available Not Available albuterol sulf 90 mcg/actua tion breath activated powder inhaler,s ensor Inhale 2 puffs every 4 hours by inhalati on route. 10/25 completed Not Available Not Available Not Available Fluzone High-Dose Quad (PF) 240 mcg/0.7 mL IM syringe PHARMACY ADMINIST ERED 07/12 completed Not Available Not Available Not Available Phospho-T rin K500 500 mg soluble tablet TAKE 1 TABLET BY MOUTH TWICE A DAY FOR 14 DAYS 02/21 completed pt states she never took it Not Available Not Available Not Available Colby-Phos Neutral 250 mg tablet active Not Available Not Available Not Available Vitals Date Recorded Body mass index (BMI) Body height Body temperature Body weight Provider Name and Address Organization Details Last Updated DateTime 09/03/2022 30.8 kg/m2 160.02 cm 97.8 [degF] 53464.35 g Not Available [facility] 09/05/2022 04:48:00 Date Recorded Body height Body mass index (BMI) Body weight Body temperature Provider Name and Address Organization Details Last Updated DateTime 10/11/2022 160.02 cm 31.5 kg/m2 57504.44 g 97.9 [degF] Sandhya Joiner CMA [place] [facility] 10/11/2022 15:15:56 Date Recorded Body height Body mass index (BMI) Body weight Body temperature Heart rate Systolic blood pressure Diastolic blood pressure Provider Name and Address Organization Details Last Updated DateTime 160.02 cm 30.5 kg/m2 49985.8 9 g 98.1 [degF] 66 /min 128 mm[Hg] 74 mm[Hg] Hannah badillo RN [facility] [employer] [facility] 3 10:14:43 Date Recorded Body height Body mass index (BMI) Body weight Body temperature Heart rate Systolic blood pressure Diastolic blood pressure Provider Name and Address Organization Details Last Updated DateTime 4 160.02 cm 29.2 kg/m2 57390.7 4 g 97.7 [degF] 83 /min 122 mm[Hg] 64 mm[Hg] ISABELLA Huynh [facility] [employer] [facility] 4 14:31:55 Date Recorded Body height Body mass index (BMI) Body weight Body temperature Provider Name and Address Organization Details Last Updated DateTime 04/28/2024 160.02 cm 29.4 kg/m2 46084.33 g 96.9 [degF] Yanet Agarwal RN [facility] [employer] [facility] 04/28/2024 10:49:30 Social History Question Answer Notes LastModified by Organization Details LastModified Time Tobacco Smoking Status Never Smoker Not Available [facility] 09/05/2022 04:41:37 Do You Have An Advance Directive? No Information Provided MIGRATION.070 [id number] Information not available 09/05/2022 What Is Your Level Of Alcohol Consumption? None MIGRATION.135 [id number] Information not available 09/05/2022 Do You Wear A Helmet When Biking? No MIGRATION.706 4099925 Information not available 09/05/2022 Are You Blind Or Do You Have Difficulty Seeing? Yes Wears Glasses MIGRATION.599 7300260 Information not available 09/05/2022 What Is Your Level Of Caffeine Consumption? Occasional MIGRATION.264 4881457 Information not available 09/05/2022 How Much Tobacco Do You Chew? None MIGRATION.285 7561239 Information not available 09/05/2022 In The 14 Days Before Symptom Onset, Have You Had Close Contact With A Laboratory-conf irmed COVID-19 While That Case Was Ill? No MIGRATION.537 [id number] Information not available 09/05/2022 In The 14 Days Before Symptom Onset, Have You Had Close Contact With A Person Who Is Under Investigation For COVID-19 While That Person Was Ill? No MIGRATION.074 [id number] Information not available 09/05/2022 Are You Deaf Or Do You Have Serious Difficulty Hearing? Yes Wears Hearing Aids MIGRATION.914 [id number] Information not available 09/05/2022 What Type Of Diet Are You Following? REGULAR MIGRATION.989 [id number] Information not available 09/05/2022 Which Illicit Or Recreational Drugs Have You Used? None MIGRATION.769 [id number] Information not available 09/05/2022 Do You Or Have You Ever Used E-cigarettes Or Vape? Never Used Electronic Cigarettes MIGRATION.484 3775632 Information not available 09/05/2022 What Is The Highest Grade Or Level Of School You Have Completed Or The Highest Degree You Have Received? [id number] MIGRATION.935 [id number] Information not available 09/05/2022 What Is Your Occupation? Retired MIGRATION.377 7079056 Information not available 09/05/2022 Have There Been Any Changes To Your Family Or Social Situation? No MIGRATION.484 5111901 Information not available 09/05/2022 What Is The Fluoride Status Of Your Home? Unknown MIGRATION.712 4347366 Information not available 09/05/2022 Are There Any Guns Present In Your Home? Yes MIGRATION.571 6698187 Information not available 09/05/2022 Do You Use Insect Repellent Routinely? No MIGRATION.627 1198698 Information not available 09/05/2022 Where Do You Live? SingleLevelHouse MIGRATION.799 [id number] Information not available 09/05/2022 Do You Have A Medical Power Of Cinder Crane Operator? No MIGRATION.191 3639578 Information not available 09/05/2022 What Was The Date Of Your Most Recent Tobacco Screening? 07/30/2023 [email or web address] Information not available 07/30/2023 Have You Ever Been Counseled For Unhealthy Alcohol Use? No MIGRATION.470 0026672 Information not available 09/05/2022 Do You Have Any Pets? No MIGRATION.375 [id number] Information not available 09/05/2022 What Is Your Relationship Status? MIGRATION.287 [id number] Information not available 09/05/2022 Do You Use Your Seat Belt Or Car Seat Routinely? Yes MIGRATION.858 5904105 Information not available 09/05/2022 Do You Have Smoke And Carbon Monoxide Detectors In Your Home? Yes MIGRATION.835 2934397 Information not available 09/05/2022 Are You Passively Exposed To Smoke? No MIGRATION.002 9590826 Information not available 09/05/2022 Do You Or Have You Ever Used Smokeless Tobacco? Never Used Smokeless Tobacco MIGRATION.188 2033954 Information not available 09/05/2022 Are There Any Smokers In Your House? No MIGRATION.290 8789089 Information not available 09/05/2022 How Much Tobacco Do You Smoke? No MIGRATION.883 2497639 Information not available 09/05/2022 What Types Of Sporting Activities Do You Participate In? None MIGRATION.380 4423696 Information not available 09/05/2022 Do You Feel Stressed (tense, Restless, Nervous, Or Anxious, Or Unable To Sleep At Night)? [id number] MIGRATION.142 3256269 Information not available 09/05/2022 Do You Use Any Illicit Or Recreational Drugs? No MIGRATION.473 7232714 Information not available 09/05/2022 Do You Use Sunscreen Routinely? Yes MIGRATION.076 2354602 Information not available 09/05/2022 Has Tobacco Cessation Counseling Been Provided? No MIGRATION.149 1492631 Information not available 09/05/2022 How Many Years Have You Smoked Tobacco? 0 MIGRATION.994 7991892 Information not available 09/05/2022 Have You Recently Traveled Abroad? No MIGRATION.235 0399115 Information not available 09/05/2022 Do You Have Any Dietary Restrictions? No MIGRATION.408 1625432 Information not available 09/05/2022 Do You Or Have You Ever Used Any Other Forms Of Tobacco Or Nicotine? No MIGRATION.314 7260850 Information not available 09/05/2022 Sex: Female Functional Status Question Answer Note LastModified by Organizat ion Details LastModified Time Do you have difficulty walking or climbing stairs? No MIGRATION.[id number] 026 Information not available 09/05/2022 Do you have transportation difficulties? No MIGRATION.[id number] 026 Information not available 09/05/2022 Are you able to walk? YESWOREST MIGRATION.6694785 026 Information not available 09/05/2022 Do you have difficulty doing errands alone? No MIGRATION.1491585 026 Information not available 09/05/2022 Are you able to care for yourself? Yes MIGRATION.2629149 026 Information not available 09/05/2022 Do you have difficulty dressing or bathing? No MIGRATION.7456067 026 Information not available 09/05/2022 What is your exercise level? Occasional MIGRATION.3901018 026 Information not available 09/05/2022 Mental Status Question Answer Note LastModified by Organizat ion Details LastModified Time Do you have difficulty concentrating, remembering or making decisions? No MIGRATION.[id number] 6 Information not available 09/05/2022 Family History Relationship Description Onset Age of this Age Resolved Age Notes LastModified by Organization Details LastModified Time Mother Myocardial infarction MIGRATION.687 [id number] Not available 09/05/2022 04:42:27 Sister Malignant tumor of breast MIGRATION.415 [id number] Not available 09/05/2022 04:42:27 Notes:GENERAL FAMILY HEARING LOSS Medical History Condition Response NERVE DISEASE N BLINDNESS N RHEUMATIC FEVER N KIDNEY STONES N BLADDER PROBLEMS N MRSA N OTHER # 1 N POLIO N LUNG DISEASE/DISORDER N RADIATION / CHEMOTHERAPY N COPD N Other # 2 N BLOOD DISEASES N EAR OR HEARING PROBLEMS N MUMPS N DEPRESSION (INCLUDING POST ) N BOWEL PROBLEMS N STROKE/TIA N ULCERS N BENIGN PROSTATIC HYPERPLASIA N MEASLES N MYOCARDIAL INFARCTION N OBESITY N GERD/NAUSEA N ANEURYSM N URINARY/BLADDER/KIDNEY PROBLEMS N CORONARY ARTERY DISEASE (CAD) N ADDICTION CONCERNS N Impotence N ENDOMETRIOSIS N USE OF BLOOD THINNERS N SKIN PROBLEMS N GASTROINTESTINAL DISORDER N PERIPHERAL VASCULAR DISEASE N MUSCLE,JOINT OR BONE PROBLEMS N GASTROINTESTINAL BLEEDING N BLOOD CLOTS N ASTHMA N CATARACTS N ERECTILE DYSFUNCTION N VARICOSITIES N GI PROBLEMS N Low Testosterone N INFERTILITY N AIDS/HIV N CHEMOTHERAPY / RADIATION N LIVER DISEASE N MALE HYPOGONADISM N HYPERTENSION Y Deficiency N TOURETTE'S N ANXIETY DISORDER N BLOOD TRANSFUSION N ANEMIA/BLOOD DISORDER N CHRONIC EAR INFECTIONS N BRONCHITIS N TUBERCULOSIS N GLAUCOMA N FOOT PROBLEM N DIVERTICULITIS N SLEEP APNEA N CHICKENPOX N INFECTIOUS DISEASE N PROSTATE N HEART ARRHYTHMIA N INSOMNIA N HIGH CHOLESTEROL / HYPERLIPIDEMIA Y EYE PROBLEMS N HYPERTHYROIDISM N EDEMA N CHRONIC PAIN SYNDROME N HYPOTHYROIDISM N CAROTID BLOCKAGE N CONSTIPATION N BACK / NECK PROBLEMS N HAVE YOU BEEN HOSPITALIZED OR SEEN IN [facility] IN THE PAST YEAR ? N ATHEROSCLEROSIS N BREAST PROBLEMS N DIALYSIS N ECZEMA N OSTEOPOROSIS N ARTHRITIS N APPENDICITIS N DIABETES, TYPE N BAD TEETH N ENT Y HEARTBURN / REFLUX N AUTISM SPECTRUM DISORDER (ASD) N HEPATITIS / LIVER DISEASE N GOUT N SLEEP DISORDER N ALZHEIMER'S DISEASE N Brain Problems N DEMENTIA N HERPES N SEIZURES/EPILEPSY N HEADACHES/MIGRAINES N VASCULAR DISEASE N PACEMAKER N Blood Disorder N DIZZINESS N HEART DISEASE/HEART PROBLEMS N KIDNEY DISEASE N MULTIPLE SCLEROSIS N CANCER: SPECIFY Y CARDIAC ARRHYTHMIA N ATRIAL FIBRILLATION N Gall Stones N PULMONARY EMBOLISM N AUTOIMMUNE DISEASE N Gynecological History Statement/Question Response Date of Last Mammogram 01/13/2021 Date of Last Colonoscopy Most Recent Bone Density 03/10/2020 Obstetrics History GPAL:G 0 P 0 0 0 0 Immunizations Vaccine Type Date Status Note Provider Nam e and Address Organization Details Recorded Time COVID-19, mRNA, LNP-S, PF, 100 mcg/0.5mL dose or 50 mcg/0.25mL dose 1 completed Not Available [facility] 05/21/2023 06:30:58 COVID-19, mRNA, LNP-S, PF, 100 mcg/0.5mL dose or 50 mcg/0.25mL dose 1 completed Not Available [facility] 05/21/2023 06:30:58 COVID-19, mRNA, LNP-S, PF, 100 mcg/0.5mL dose or 50 mcg/0.25mL dose 1 completed Not Available [facility] 05/21/2023 06:30:58 Influenza, high-dose, quadrivalent, PF 0 completed Not Available [facility] 05/21/2023 06:30:58 Influenza, high-dose, trivalent, PF 9 completed Not Available [facility] 05/21/2023 06:30:58 Influenza, high-dose, trivalent, PF 7 completed Not Available [facility] 05/21/2023 06:30:58 zoster live 5 completed Not Available [facility] 05/21/2023 06:30:58 influenza, unspecified formulation 5 completed Not Available [facility] 05/21/2023 06:30:58 influenza, unspecified formulation 4 completed Not Available [facility] 05/21/2023 06:30:58 Pneumococcal conjugate PCV 13 1 completed Not Available [facility] 05/21/2023 06:30:58 pneumococcal polysaccharide PPV23 5 completed Not Available [facility] 05/21/2023 06:30:58 Past Encounters Encounter ID Performer Location Encounter Start Date Encounter Closed Date Diagnosis/Indication Diagnosis SNOMED-CT Code Diagnosis ICD10 Code [id number] [facility] [address] [place] [address] [address] [address] 11/08/2020 00:00:00 11/08/2020 21:58:31 [id number] [facility] [address] [place], [place] [address]e., [address] [address] 11/23/2020 00:00:00 11/23/2020 21:44:21 [id number] [facility] [facility] [address] [facility] , [facility] [place] [address] 03/28/2021 00:00:00 03/28/2021 23:05:28 [id number] [facility] [address] [place], [place] [address]e., [address] [address] 04/05/2021 00:00:00 04/23/2021 21:37:29 [id number] [facility] [address] [place], [place] [address]., [address] [address] 04/14/2021 00:00:00 05/14/2021 21:16:13 [id number] [facility] [address] [place], [place] [address]., [address] [address] 05/19/2021 00:00:00 05/20/2021 10:09:52 [id number] [facility] [address] [place], [place] [address]., [address] [address] 08/11/2021 00:00:00 08/12/2021 13:26:57 [id number] [facility] [address] [place], [place] [address]., [address] [address] 08/16/2021 00:00:00 09/10/2021 11:25:00 [id number] _ATHENA_M IGRATION_ DEFAULT_1 _1 , 08/30/2021 00:00:00 08/30/2021 13:01:35 [id number] [facility] [address] [place], [place] [address]., [address] [address] 10/25/2021 00:00:00 10/25/2021 21:31:41 [id number] [facility] [address] [place] [address] Ave[address] [address] 02/21/2022 00:00:00 02/24/2022 20:57:14 [id number] [facility] [address] [place] [address] Ave[address] [address] 07/18/2022 00:00:00 07/21/2022 18:04:35 [id number] [facility] [address] [place], [place] [address]., [address] [address] 07/20/2022 00:00:00 07/21/2022 14:50:36 [id number] [facility] [address] [place], [place] [address]., [address] [address] 08/15/2022 00:00:00 08/15/2022 22:25:12 [id number] [facility] [place] [address] [place] [address] 09/03/2022 00:00:00 09/03/2022 11:07:04 [id number] Zev Baum MD [facility] [place] [address] [place] [address] 10/11/2022 15:05:59 10/11/2022 16:11:34 Perforation of right tympanic membrane 8159922507 375364 H72.91 Mixed cond uctive AND sensorineural hearing loss 12676495 H90.8 [id number] Katlyn Briseno MD [facility] [address] [place] [address] Ave[address] [address] 12/27/2022 09:50:22 12/27/2022 10:38:17 [facility] [id number] Katlyn Briseno MD [facility] [place] [address] [place] [address] , [facility] [place] [address] 07/30/2023 14:20:43 07/30/2023 17:49:03 Benign essential hypertension 3661636 I10 Pure hypercholesterolemia 370921074 E78.00 Hypothyroidism 19114166 E03.9 [id number] CIARA Mueller [facility] [place] [address] [place] [address] 04/28/2024 10:43:33 04/28/2024 11:27:54 Anterior rhinorrhea 146888700 J34.89 Acute otitis externa 302 63919 H60.509 Health Concerns Section Related Observation LastModified by Organization Detai ls LastModified Time None Recorded Concern Status LastModified by Organization Details LastModified Time None Recorded Advance Directives Directive N: information provided Payers Encounter Date Sequence Insurance Name Policy Number Policy Salter Covered Member ID Salter Member ID Guarantor Name 10/11/2022 1 [place] [id number] [employer] 10/11/2022 2 [employer]ARP HEALTHCARE OPTION - PLAN F (MEDICARE SUPPLEMENT) La M Vivod [id number] [place] [employer]od 12/27/2022 1 [place] [id number] [place] [employer] 12/27/2022 2 [employer] HEALTHCARE OPTION - PLAN F (MEDICARE SUPPLEMENT) La M Vivod [id number] La M Vivod 07/30/2023 1 [place] [id number] La M Vivod 07/30/2023 2 [employer] HEALTHCARE OPTION - PLAN F (MEDICARE SUPPLEMENT) La M Vivod [id number] La M Vivod 04/28/2024 1 [place] Viv[place] [id number] La M Vivod 04/28/2024 2 [employer] HEALTHCARE OPTION - PLAN F (MEDICARE SUPPLEMENT) La M Vivod [id number] La M Vivod Notes Date Note Type Note Provider Name and Address Organization Details Recorded Time 10/11/2022 text/html since the last v isit this patient developed COVID and a right tympanic membrane perforations seen on audiogram. Zev Baum MD [address], [place], [address], [facility] [employer] [facility] 10/11/2022 15:30:45 12/27/2022 text/html Small red spot o n stump she says some clear liquid came out of it Katlyn Briseno MD [address], [place], [address], [facility] [employer] [facility] 01/12/2023 15:20:34 07/30/2023 text/html Hypertension no headache no dizziness dyslipidemia diet been liberalized neuro endocrine tumor has been relatively stable she vacillates with diarrhea from time to time working with her oncology team on that still has the issues with her stoma. Anxiety stable Katlyn Briseno MD [address], [place], [address], [facility] [employer] [facility] 08/02/2023 21:25:01 04/28/2024 text/html This patient has a past medical history significant for hearing loss s/p bilateral hearing aids, neuroendocrine tumor, HLD, and HTN. she presents to the office with a complaint of right ear drainage and popping onset approximately 2-3 weeks ago. she states that she has not seen her PCP for this issue. She does note that she had a perforated eardrum to that ear and had a tympanoplasty completed by Dr. Rojas. She states she has a follow-up with Dr. Rojas in July of 2024. She also endorses chronic rhinorrhea. She states multiple family members have this problem. She denies any nasal congestion, sinus headaches, or sinus pressure. She does not take any lojk-xno-hienyrm medications for this. she also notes that she is in a trial for a chemotherapy medication. CIARA Mueller [address], [place], [address], [facility] [employer] [facility] 04/28/2024 11:27:24 OBGyn Episode No OBEpisode recorded.
--- OUTSIDE RECORDS SUMMARY | 2024-06-25 22:01 | XMS_ITS | Encounter Summary ---
Author Organization [facility] Address [address] [place] [address] Care Team Providers Care Carbide Die Maker Name Role Phone Julio César Briseno MD Primary Care Provider [phone] Reason for Visit * Reason Onset Date Comments Rx Medication Monitoring 09/16/2018 Encounter Details Date Type Department Care Team (Late st Contact Info) Description 09/16/2018 Telephone [facility] [address] [place], [place] [id number] Anne-Marie Dobson MD [address] [place] [address] Rx Medication Monitoring Social History Tobacco Use Types Packs/Day Years Used Date Smoking Tobacco: Never Smokeless Tobacco: Never Alcohol Use Standard Drinks/Week Comments Yes 0 (1 standard drink = 0.6 oz pur e alcohol) Sex and Gender Information Value Date Recorded Sex Assigned at Not on file Gender Identity Not on file Sexual Orientation Not on file documented as of this encounter Miscellaneous Notes * Telephone Encounter - Luciano Stanley RN - 09/17/2018 4:[address] Dobson's message. All questions answered. She agrees to plan. * Telephone Encounter - Luciano Stanley RN - 09/17/2018 4:25 PM CDT LM on a re: please call us back tomorrow for a message from Dr. Dobson. * Telephone Encounter - Anne-Marie Dobson MD - 09/16/2018 4:38 PM CDT So looks like night 690 oz on night and 570. The first is elevated but second not bad,. So lets start having her take her benicar at 3-4 pm and see how that does over about 3-4 nights andthen she can let us know. Can she measure the amount the night before she calls us back to report to see if the fluid shifts are different with changing the diuretic. * Telephone Encounter - Elaine Rg LPN - 09/16/2018 4:02 PM CDT I called the patient She is back from vacation and ready to give her numbers Day one started with bedtime. Threw out first void at 1030 pm. Was up 2 x that night . First void was 6 oz , second void was 9 oz - had a strong urge and got the floor wet. She woke up for the day at 7 am. Voided 13 oz. With strong urge and incont again. Day number 2 void 1030 am 3 oz Noon 1 oz 2 pm 3 oz 5 pm incont - unable to measure anything ( patient had soda during the day - knows this was the problem ) 730 pm 5 oz 10 pm 3 oz went to bed 1 am 9 oz no urge at all - just woke up 3 am 8 oz. 730 am 6 oz up for the day Day 2 9 am 2 oz 2 15 pm 3 oz - thinks must have gone shopping 5 pm 3 oz 7 15 pm 4 oz 1030 pm 3 oz went to bed 1230 am 7 oz 230 am 4 oz 630 am 8 oz - up for day - left for trip. Releases going more at night. We discussed elevating her feet in the late afternoon / early evening and why. She is taking benicar in the am I will get this message to Dr. Dobson and we will call her back for further instructions She is agreeable. * Telephone Encounter - Chaitanya Jasbir - 09/16/2018 9:12 AM CDT Pt would like a call from the nurse to report medication usage. Callback#[phone] documented in this encounter Plan of Treatment Not on file documented as of this encounter Visit Diagnoses Not on filedocumented in this encounter Care Teams Carbide Die Maker Relationship Specialty Start Date End Date Julio César Briseno MD PCP - General 10/23/17 documented as of this encounter
--- OUTSIDE RECORDS SUMMARY | 2024-06-25 22:01 | XMS_ITS | Encounter Summary ---
Author Organization [facility] Address [address] [place] [address] Care Team Providers Care Shrimping Boat Captain Name Role Phone Julio César Briseno MD Primary Care Provider [phone] Reason for Visit * Reason Onset Date Comments Update 10/16/2018 Encounter Details Date Type Department Care Team (Late st Contact Info) Description 10/16/2018 Telephone [facility] [address] [place] [address] Anne-Marie Dobson MD [address] [place] [address] Update Social History Tobacco Use Types Packs/Day Years [...] encounter Miscellaneous Notes * Telephone Encounter - Sandhya Gomez RN - 10/16/2018 12:36 PM CDT RTC to pt. She states that she wanted to let know that the myrbetriq 50 is working wellfor her. She can make it to the bathroom with no problems now. She is asking for refills. I sent in the refills, will forward to Dr. Dobson to let her know medication is working well for pt. All in agreement. * Telephone Encounter - Hien Smith - 10/16/2018 11:56 AM CDT Pt called in stating that she was supposed to follow up as requested by Dr Dobson to let her knowhow the increase on her myrbetriq is doing. Pt stated it is helping. She increased her to 50mg. Pt callback# [phone] documented in this encounter Plan of Treatment Not on file documented as of this encounter Visit Diagnoses Diagnosis Mixed incontinence Mixed incontinence urge and stress (male)(female) documented in this encounter Care Teams Shrimping Boat Captain Relationship Specialty Start Date End Date Julio César Briseno MD PCP - General 10/23/17 documented as of this encounter
--- OUTSIDE RECORDS SUMMARY | 2024-06-25 22:01 | XMS_ITS | Encounter Summary ---
Author Organization [facility] Address [address] [facility] [place] [address] Care Team Providers Care Manager Commission Name Role Phone Julio César Briseno MD Primary Care Provider [phone] Encounter Details Date Type Department Care Team (Late st Contact Info) Description 09/09/2020 Orders Only [facility] - COVID Vaccine [address] [place] [id number] Greyson Arita MD [address] [place] [address] Need for vaccination Social History Tobacco Use Types Packs/Day Years Used Date Smoking Tobacco: Never Smokeless Tobacco: Never Alcohol Use Standard Drinks/Week Comments Yes 0 (1 standard drink = 0.6 oz pur e alcohol) Sex and Gender Information Value Date Recorded Sex Assigned at Not on file Gender Identity Not on file Sexual Orientation Not on file documented as of this encounter Plan of Treatment Not on file documented as of this encounter Visit Diagnoses Diagnosis Need for vaccination Need for prophylactic vaccination and inoculation against unspecified single disease documented in this encounter Care Teams Manager Commission Relationship Specialty Start Date End Date Julio César Briseno MD PCP - General 10/23/17 documented as of this encounter
--- OUTSIDE RECORDS SUMMARY | 2024-06-25 22:01 | XMS_ITS | Continuity of Care Document ---
Author Organization [place] [facility] Address [address] , [address] [place] [address] Care Team Providers Care Revenue Analyst Name Role Phone JULIO CÉSAR BRISENO Primary Care Provider [phone] JULIO CÉSAR BRISENO Referring Provider Assessment No assessment recorded. Plan of Treatment Reminders Order Date Submit Date Provider Last Modified By Organization Details Last Modified Time Details Appointments None recorded. Lab None recorded. Referral None recorded. Procedures None recorded. Surgeries None recorded. Imaging None recorded. Medication Orders Ciprodex 0.3 %-0.1 % ear drops,suspe nsion 2023 [id number], [address] , [place], [place], [phone], 11:27:07 ipratropium bromide 42 mcg (0.06 %) nasal spray 2023 [facility][id number], [address] , [place], [place], [id number], 11:27:05 Patient TargetsNo targets recorded. Patient Instructions Encounter Date Encounter Id Patient Instructions Last Modified By Organization Details Last Modified Time 04/28/2024 [id number] IF SYMPTOMS PERSIST OR WORSEN AFTER COMPLETION OF MEDICATION PLEASE RETURN TO THE OFFICE FOR FURTHER EVALUATION. [email or web address] Not available 04/28/2024 11:27:20 Reason for Referral None Reported. Problems Name Problem SNOMED Code Status Onset Date Resolution Date Notes Provider Name and Address Organization Details Recorded Time Perforati on of tympanic membrane 07263088 Active 2022 Not Available [facility] 3 06:30:57 Perforati on of right tympanic membrane 89769806839 22928 Active 2022 Not Available [facility] 3 06:30:56 Mixed conductiv e AND sensorine ural hearing loss 54898889 Active 2022 Not Available [facility] 3 06:30:57 Eruption 922295633 Active 2022 Not Available [facility] 3 06:30:56 Acute urinary tract infection 262362399 Active 2022 Not Available [facility] 3 06:30:57 Hypothyro idism 18171236 Active 2023 Julio César Briseno MD [address], [place] [address], [place], [address] , [facility] [employer] [facility] [employer] 4 21:24:38 Anterior rhinorrhe a 044866566 Active 2023 CIARA Mueller [address], [place] [address], [place], [address] , [facility] [employer] 4 11:26:05 Acute otitis externa 43193047 Active 2023 CIARA Mueller [address], [place] [address], [place], [address] , [employer] [facility] 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 Not Available [facility] 3 06:30:56 Muscle weakness 90796555 Active 2021 Not Available [facility] 3 06:30:56 Pure hyperchol esterolem ia 918773560 Active Not Available [facility] 3 06:30:56 Shoulder joint pain 973066526 Active Not Available [facility] 3 06:30:56 Low back pain 693933310 Active Not Available [facility] 3 06:30:56 Mass of ovary 657739216 Active Not Available [facility] 3 06:30:56 Knee pain Active Not Available [facility] 3 06:30:56 Pain in right foot 62798466831 9107 Active 2021 Not Available [facility] 3 06:30:57 Vitamin D deficienc y 13266077 Completed Not Available [facility] 3 04:49:15 Depressiv e disorder 84026660 Active 2021 Not Available [facility] 3 06:30:57 Hypertens kenny disorder 06829880 Active 2021 Not Available [facility] 3 06:30:57 Disorder of vitamin D 812004202 Active Not Available [facility] 3 06:30:57 Enthesopa thy of knee 24770488 Active Not Available [facility] 3 06:30:57 Vertigo 172618415 Active 2021 Not Available [facility] 3 06:30:57 Blepharit is 07464844 Active Not Available [facility] 3 06:30:57 Nausea 863550860 Active 2021 Not Available [facility] 3 06:30:57 Foot pain 32041578 Active Not Available [facility] 3 06:30:57 Presbycus is 97622326 Active 2022 Not Available [facility] 3 06:30:57 Cough 09504164 Active Not Available [facility] 3 06:30:57 Upper respirato ry infection 83933080 Active 2022 Not Available [facility] 3 06:30:57 Acute upper respirato ry infection 50980910 Active 2022 Not Available [facility] 3 06:30:57 Essential hypertens ion 19638265 Active 2021 Not Available [facility] 3 06:30:57 Diarrhea 74477861 Active Not Available [facility] 3 06:30:57 Problem Notes None recorded. Procedures Surgical History Date Name Laterality Status Provider Name and Address Organization Details Recorded Time 06/07/20 23 Eardrum revision completed Yanet Agarwal RN [place] - [facility] 04/28/2024 10:51:04 03/10/20 Most Recent Bone Density completed Not Available [facility] 09/05/2022 04:42:17 09/24/19 18 colonoscopy completed Not Available [facility] 09/05/2022 04:42:19 06/08/20 14 Total knee arthroplasty completed Not Available [facility] 09/05/2022 04:42:19 Tonsillectomy completed Not Available [facility] 09/05/2022 04:42:19 Hysterectomy completed Not Available [facility] 09/05/2022 04:42:19 Cholecystectomy completed Not Available [facility] 09/05/2022 04:42:19 colostomy completed Not Available [facility] 09/05/2022 04:42:19 Appendectomy completed Not Available [facility] 09/05/2022 04:42:19 Imaging Results None recorded. Procedure Notes None recorded. Medical Equipment None Reported. Allergies Allergen ID Allergen Name Allergen Category Reaction Reaction Severity Criticality Documentation Date Start Date Code Code System Note Provider Name and Address Organization Details Recorded Time 7121 Vytorin medicatio n myalgias (muscle pain) Not available Not available 09/05/2022 17650 5 RxNorm Not Available [facility] 3 04:56:35 7124 morphine medicatio n Not available Not available Not available 09/05/2022 7052 RxNorm Not Available [facility] 3 04:56:35 7125 Altace medicatio n cough Not available Not available 09/05/2022 20292 8 RxNorm Not Available [facility] 3 04:56:35 Medications Name Sig Start Date [...] 1 TABLET (75 MCG TOTAL) BY MOUTH FILLING AND STAPLING MACHINE OPERATOR BEFORE BREAKFAS T 10/11 completed Not Available Not Available Not Available valsartan 80 mg-hydroc hlorothia zide 12.5 mg tablet TAKE 1 TABLET DAILY DIRECTED active Not Available Not Available No t Available oxycodone -acetamin ophen 5 mg-325 mg tablet 11/13 completed Not Available Not Available Not Available levothyro xine 88 mcg tablet TAKE 1 TABLET (88 MCG TOTAL) BY MOUTH FILLING AND STAPLING MACHINE OPERATOR BEFORE BREAKFAS T active Not Available Not [...] 3.5 mg-10,000 unit/mL-1 % ear drops,khushboo p 05/08 completed Not Available Not Available Not [...] tablet 2021 active Cancer trial medicati on speciali st gives it to him. Not Available [...] Available Not Available Vitals Date Recorded Body height Body mass index (BMI) Body weight Body temperature Provider Name and Address Organization Details Last Updated DateTime 04/28/2024 160.02 cm 29.4 kg/m2 35367.33 g 96.9 [degF] Yanet Agarwal RN [place] - [facility] [employer] 04/28/2024 10:49:30 Social History Question Answer Notes LastModified by Organization Details LastModified Time Tobacco Smoking Status Never Smoker Not Available [facility] 09/05/2022 04:41:37 Do You Have An Advance Directive? No Information Provided MIGRATION.035 [id number] Information not available 09/05/2022 What Is Your Level Of Alcohol Consumption? None MIGRATION.924 8476390 Information not available 09/05/2022 Do You Wear A Helmet When Biking? No MIGRATION.170 5364477 Information not available 09/05/2022 Are You Blind Or Do You Have Difficulty Seeing? Yes Wears Glasses MIGRATION.681 3442815 Information not available 09/05/2022 What Is Your Level Of Caffeine Consumption? Occasional MIGRATION.456 0692875 Information not available 09/05/2022 How Much Tobacco Do You Chew? None MIGRATION.588 0679666 Information not available 09/05/2022 In The 14 Days Before Symptom Onset, Have You Had Close Contact With A Laboratory-conf irmed COVID-19 While That Case Was Ill? No MIGRATION.942 [id number] Information not available 09/05/2022 In The 14 Days Before Symptom Onset, Have You Had Close Contact With A Person Who Is Under Investigation For COVID-19 While That Person Was Ill? No MIGRATION.251 1635853 Information not available 09/05/2022 Are You Deaf Or Do You Have Serious Difficulty Hearing? Yes Wears Hearing Aids MIGRATION.353 9406082 Information not available 09/05/2022 What Type Of Diet Are You Following? REGULAR MIGRATION.081 3743851 Information not available 09/05/2022 Which Illicit Or Recreational Drugs Have You Used? None MIGRATION.844 6836148 Information not available 09/05/2022 Do You Or Have You Ever Used E-cigarettes Or Vape? Never Used Electronic Cigarettes MIGRATION.572 8988838 Information not available 09/05/2022 What Is The Highest Grade Or Level Of School You Have Completed Or The Highest Degree You Have Received? NT06659-5 MIGRATION.439 3879467 Information not available 09/05/2022 What Is Your Occupation? Retired MIGRATION.534 3620021 Information not available 09/05/2022 Have There Been Any Changes To Your Family Or Social Situation? No MIGRATION.716 4181137 Information not available 09/05/2022 What Is The Fluoride Status Of Your Home? Unknown MIGRATION.886 3883382 Information not available 09/05/2022 Are There Any Guns Present In Your Home? Yes MIGRATION.621 [id number] Information not available 09/05/2022 Do You Use Insect Repellent Routinely? No MIGRATION.098 4696145 Information not available 09/05/2022 Where Do You Live? [place]LevelHouse MIGRATION.331 6580091 Information not available 09/05/2022 Do You Have A Medical Power Of Appliance Line Assembler? No MIGRATION.612 0075287 Information not available 09/05/2022 What Was The Date Of Your Most Recent Tobacco Screening? 07/30/2023 [email or web address] Information not available 07/30/2023 Have You Ever Been Counseled For Unhealthy Alcohol Use? No MIGRATION.514 4187248 Information not available 09/05/2022 Do You Have Any Pets? No MIGRATION.668 2694144 Information not available 09/05/2022 What Is Your Relationship Status? MIGRATION.085 1070408 Information not available 09/05/2022 Do You Use Your Seat Belt Or Car Seat Routinely? Yes MIGRATION.471 8917815 Information not available 09/05/2022 Do You Have Smoke And Carbon Monoxide Detectors In Your Home? Yes MIGRATION.868 1489501 Information not available 09/05/2022 Are You Passively Exposed To Smoke? No MIGRATION.214 0211008 Information not available 09/05/2022 Do You Or Have You Ever Used Smokeless Tobacco? Never Used Smokeless Tobacco MIGRATION.532 6065831 Information not available 09/05/2022 Are There Any Smokers In Your House? No MIGRATION.455 7355308 Information not available 09/05/2022 How Much Tobacco Do You Smoke? No MIGRATION.724 1299426 Information not available 09/05/2022 What Types Of Sporting Activities Do You Participate In? None MIGRATION.336 8730076 Information not available 09/05/2022 Do You Feel Stressed (tense, Restless, Nervous, Or Anxious, Or Unable To Sleep At Night)? [id number] MIGRATION.921 4532821 Information not available 09/05/2022 Do You Use Any Illicit Or Recreational Drugs? No MIGRATION.937 8764985 Information not available 09/05/2022 Do You Use Sunscreen Routinely? Yes MIGRATION.989 8974838 Information not available 09/05/2022 Has Tobacco Cessation Counseling Been Provided? No MIGRATION.411 0043740 Information not available 09/05/2022 How Many Years Have You Smoked Tobacco? 0 MIGRATION.451 0963568 Information not available 09/05/2022 Have You Recently Traveled Abroad? No MIGRATION.131 7092299 Information not available 09/05/2022 Do You Have Any Dietary Restrictions? No MIGRATION.634 2022451 Information not available 09/05/2022 Do You Or Have You Ever Used Any Other Forms Of Tobacco Or Nicotine? No MIGRATION.457 5954549 Information not available 09/05/2022 Sex: Female Functional Status Question Answer Note LastModified by Organizat [employer] Details LastModified Time Do you have difficulty walking or climbing stairs? No MIGRATION.8981142 026 Information not available 09/05/2022 Do you have transportation difficulties? No MIGRATION.1477402 026 Information not available 09/05/2022 Are you able to walk? YESWOREST MIGRATION.6196516 026 Information not available 09/05/2022 Do you have difficulty doing errands alone? No MIGRATION.3614554 026 Information not available 09/05/2022 Are you able to care for yourself? Yes MIGRATION.6018695 026 Information not available 09/05/2022 Do you have difficulty dressing or bathing? No MIGRATION.7163310 026 Information not available 09/05/2022 What is your exercise level? Occasional MIGRATION.3720439 026 Information not available 09/05/2022 Mental Status Question Answer Note LastModified by Organ[employer] Details LastModified Time Do you have difficulty concentrating, remembering or making decisions? No MIGRATION.[id number] 6 Information not available 09/05/2022 Family History Relationship Description Onset Age of this Age Resolved Age Notes LastModified by Organization Details LastModified Time Mother Myocardial infarction MIGRATION.164 [id number] Not available 09/05/2022 04:42:27 Sister Malignant tumor of breast MIGRATION.299 4014874 Not available 09/05/2022 04:42:27 Notes:GENERAL FAMILY HEARING LOSS Medical History Condition Response NERVE DISEASE N BLINDNESS N RHEUMATIC FEVER N KIDNEY STONES N BLADDER PROBLEMS N MRSA N OTHER # 1 N POLIO N LUNG DISEASE/DISORDER N RADIATION / CHEMOTHERAPY N COPD N Other # 2 N BLOOD DISEASES N EAR OR HEARING PROBLEMS N MUMPS N BOWEL PROBLEMS N DEPRESSION (INCLUDING POST ) N STROKE/TIA N ULCERS N BENIGN PROSTATIC [...] N CHRONIC PAIN SYNDROME N HYPOTHYROIDISM N CONSTIPATION N CAROTID BLOCKAGE N BACK / NECK PROBLEMS N HAVE YOU BEEN HOSPITALIZED OR SEEN IN [facility] IN THE PAST YEAR ? N [...] 50 mcg/0.25mL dose 1 completed Not Available [facility] 05/21/2023 06:30:58 COVID-19, mRNA, LNP-S, PF, 100 mcg/0.5mL dose or 50 mcg/0.25mL dose 1 completed Not Available [facility] 05/21/2023 06:30:58 COVID-19, mRNA, LNP-S, PF, 100 mcg/0.5mL dose or 50 mcg/0.25mL dose 1 completed Not Available [facility] 05/21/2023 06:30:58 Influenza, high-dose, quadrivalent, PF 0 completed Not Available [facility] 05/21/2023 06:30:58 Influenza, high-dose, trivalent, PF 9 completed Not Available [facility] 05/21/2023 06:30:58 Influenza, high-dose, trivalent, PF 7 completed Not Available [facility] 05/21/2023 06:30:58 zoster live 5 completed Not Available [facility] 05/21/2023 06:30:58 influenza, unspecified formulation 5 completed Not Available [facility] 05/21/2023 06:30:58 influenza, unspecified formulation 4 completed Not Available [facility] 05/21/2023 06:30:58 Pneumococcal conjugate PCV 13 1 completed Not Available [facility] 05/21/2023 06:30:58 pneumococcal polysaccharide PPV23 5 completed Not Available [facility] 05/21/2023 06:30:58 Past Encounters Encounter ID Performer Location Encounter Start Date Encounter Closed Date Diagnosis/Indication Diagnosis SNOMED-CT Code Diagnosis ICD10 Code [id number] CIARA Mueller [facility] [address] [place] [address] 04/28/2024 10:43:33 04/28/2024 11:27:54 Anterior rhinorrhea 782030761 J34.89 Acute otitis externa 302 72618 H60.509 Health Concerns Section Related Observation LastModified by Organization Detai ls LastModified Time None Recorded Concern Status LastModified by Organization Details LastModified Time None Recorded Payers Encounter Date Sequence Insurance Name Policy Number Policy Salter Covered Member ID Salter Member ID Guarantor Name 04/28/2024 1 [place] La Schwarz [employer] [id number] La Schwarz [employer] 04/28/2024 2 [facility] OPTION - PLAN F (MEDICARE SUPPLEMENT) La Schwarz Vivod [id number] La Chung Notes Date Note Type Note Provider Name and Address Organization Details Recorded Time 04/28/2024 text/html This patient has a past [...] sinus pressure. She does not take any xmbg-mbt-oenawqx medications for this. she also notes that she is in a trial for a chemotherapy medication. Kathy Boyer, [employer] [address] [facility], [place] [address], [place], [address], [facility] 04/28/2024 11:27:24 OBGyn Episode No OBEpisode recorded.
--- OUTSIDE RECORDS SUMMARY | 2024-06-25 22:01 | XMS_ITS | Continuity of Care Document ---
Author Organization [facility] Shaka ALONZO (Adult Med) Address [address] [place] [address] Care Team Providers Care Copy Holder Name Role Phone JULIO CÉSAR BRISENO Primary Care Provider [phone] Assessment Encounter Date Assessment Date Assessment LastModified by Organization Details LastModified Time 04/08/2024 04/08/2024 blood pressure is doing fine flu shot today healthy lifestyle care instructions she will go back on her duloxetine says she has not been taking and I told her for the 1st week she may get nauseated she will follow up with me in a month diagnosis have been discussed all questions have been answered [email or web address] Not available 04/26/2024 14:19:59 Plan of Treatment Reminders Order Date Submit Date Provider Last Modified By Organization Details Last Modified Time Details Appointments ANY 15 025 09:15AM Julio César Briseno MD Not available Not available Not available Lab None record ed. Referral None record ed. Procedures None record ed. Surgeries None record ed. Imaging None record ed. Medication Orders None record ed. Patient TargetsNo targets recorded. Patient Instructions Encounter Date Encounter Id Patient Instructions Last Modified By Organization Details Last Modified Time 04/08/2024 [id number] A healthy lifestyle: care instructions [email or web address] Not available 04/08/2024 12:26:46 Reason for Referral None Reported. Results Created Date Observation Date Name Description Value Unit Range Abnormal Flag Note LastModifiedBy Organization Detail LastModifiedTime 06/21/20 24 06/21/2024 CT, brain , w/wo contr ast No observ ation record ed. [facility] [address], [place], [address], 06/22/2024 11:20:04 Result Notes None recorded. Problems Name Problem SNOMED Code Status Onset Date Resolution Date Notes Provider Name and Address Organization Details Recorded Time Essential hypertension 97566802 Active 2023 Julio César Briseno MD Attn: Jannet bains,[address] [facility], [place], [address], [place] - [facility] 4 15:31:28 Hyperlipidemia 84127341 Active 2023 Julio César Briseno MD Attn: Jannet bains,[address], [place], [address], [place] [facility] 4 15:31:29 Hypothyroidism 77750232 Active 2023 Julio César Briseno MD Attn: Jannet bains,[address] [facility], [place], [address], [place] [facility] 4 15:31:35 Neuroendocrine tumor 359530601 Active 2023 Julio César Briseno MD Attn: Jannet bains,[address] [facility], [place], [address], [place] [facility] 4 15:31:36 Anxiety 01922034 Active 2023 Julio César Briseno MD Attn: Jannet bains,[address] [facility], [place], [address], [place] [facility] 4 15:31:40 Vitamin D deficiency 07206379 Active 2023 Jerman Metz [place] null, [place] - [facility] 12:42:00 Problem Notes None recorded. Procedures Surgical History Date Name Laterality Status Provider Name and Address Organization Details Recorded Time Appendectomy completed IRIS Quan - [facility] 10/08/2023 11:13:30 Cholecystectomy completed Kim Roque [place] - [facility] 10/08/2023 11:13:37 Gastrointestinal Surgery completed IRIS Quan - [facility] 10/08/2023 11:13:42 Joint Replacement completed Baldemar Roque [place] - [facility] 10/08/2023 11:13:50 Tonsillectomy completed IRIS Quan - [facility] 10/08/2023 11:13:58 Knee Surgery completed Kim Roque [place] - [facility] 10/08/2023 11:14:04 Dilation and Curettage completed Kim Roque MA [facility] 10/08/2023 11:14:10 Total hysterectomy completed Demetrius Roque MA [facility] 10/08/2023 11:14:15 Imaging Results None recorded. Procedure Notes None recorded. Medical Equipment None Reported. Allergies Allergen ID Allergen Name Allergen Category Reaction Reaction Severity Criticality Documentation Date Start Date Code Code System Note Provider Name and Address Organization Details Recorded Time 16880108 Vytorin medicatio n Not available Not available Not available 10/08/2023 doesn 't remem cora Belkys Rosario darrius, [facility] 4 09:52:04 935178 Altace medicatio n cough Not available Not available 10/08/2023 82996 8 RxNorm IRIS Quan [facility] 4 11:12:56 198144 morphine medicatio n rash Not available Not available 10/08/2023 7052 RxNorm IRIS Quan [facility] 4 11:13:07 Medications Name Sig Start Date Stop Date Status Note LastModified by Organization Details LastModified Time amoxicilli n 500 mg capsule TAKE 4 CAPSULES BY MOUTH 1 HOUR BEFORE APPOINTME NT 04/08 completed Not Available Not Available Not Available doxycyclin e hyclate 100 mg capsule TAKE 1 CAPSULE BY MOUTH TWICE DAILY FOR 7 DAYS 10/07 completed Not Available Not Available Not Available benzonatat e 200 mg capsule TAKE 1 CAPSULE BY MOUTH THREE TIMES A DAY 10/07 completed Not Available Not Available Not Available hydrocodon e 5 mg-acetami nophen 325 mg tablet 10/07 completed Not Available Not Available Not Available ondansetro n HCl 8 mg tablet Take 1 tablet every 8 hours by oral route as needed for 30 days. active Not Available Not Available No t Available Synthroid 100 mcg tablet TAKE 1 TABLET DAILY BEFORE BREAKFAST active Not Available Not Available No t Available amlodipine 5 mg tablet TAKE 1 TABLET DAILY NEEDED active Not Available Not Available No t Available ciprofloxa radha 500 mg tablet 04/08 completed Not Available Not Available Not Available Ditropan 5 mg tablet Take 1 tablet twice a day by oral route. 04/08 completed D/C per Dr Briseno at visit 4. Not Available Not Available Not Available ondansetro n 8 mg disintegra ting tablet TAKE 1 TABLET BY MOUTH EVERY 8 HOURS NEEDED FOR NAUSEA OR VOMITING. 10/07 completed Not Available Not Available Not Available levothyrox ine 88 mcg tablet TAKE 1 TABLET BY MOUTH ONCE DAILY BEFORE BREAKFAST 02/02 completed Not Available Not Available Not Available ofloxacin 0.3 % ear drops PLACE 4 DROPS INTO RIGHT EAR TWICE DAILY 7 DAYS POST OP 10/07 completed Not Available Not Available Not Available amoxicilli n 875 mg tablet 10/07 completed Not Available Not Available Not Available prednisolo ne acetate 1 % eye drops,susp ension INSTILL 1 DROP INTO BOTH EYES THREE TIMES DAILY FOR 1 WEEK 10/07 completed Not Available Not Available Not Available ciprofloxa radha 0.3 % eye drops 10/07 completed Not Available Not Available Not Available simvastati n 20 mg tablet Take 1 tablet every day by oral route. active Not Available Not Available No t Available losartan 25 mg tablet TAKE 1 TABLET DAILY active Not Available Not Available No t Available sodium chloride 0.9 % intravenou s solution 10/07 completed Not Available Not Available Not Available ergocalcif oksana (vitamin D2) 1,250 mcg (50,000 unit) capsule TAKE 1 CAPSULE BY MOUTH EVERY WEEK active Not Available Not Available No t Available ipratropiu m bromide 42 mcg (0.06 %) nasal spray [place] 1 spray twice a day by nasal route for 13 days. active Not Available Not Available No t Available amoxicilli n 875 mg-potassi um clavulanat e 125 mg tablet TAKE 1 TABLET BY MOUTH EVERY 12 HOURS 04/08 completed Not Available Not Available Not Available amoxicilli n 500 mg-potassi um clavulanat e 125 mg tablet TAKE 1 TABLET BY MOUTH EVERY 8 HOURS UNTIL ALL TAKEN 10/07 completed Not Available Not Available Not Available ciprofloxa radha 0.3 %-dexameth asone 0.1 % ear drops,susp ension Instill 4 drops twice a day by otic route for 7 days. 05/15 completed Right ear Not Available Not Available Not Available nitrofuran toin monohydrat e/macrocry stals 100 mg capsule TAKE 1 CAPSULE BY MOUTH EVERY 12 HOURS 10/07 completed Not Available Not Available Not Available duloxetine 30 mg capsule,de layed release Take 1 capsule every day by oral route. active Not Available Not Available No t Available duloxetine 60 mg capsule,de layed release Take 1 capsule every day by oral route. active Not Available Not Available No t Available Xgeva 120 mg/1.7 mL (70 mg/mL) subcutaneo us solution Inject 1.7 mL every 4 weeks by subcutane ous route. active Not Available Not Available No t Available Sandostati n LAR Depot 30 mg intramuscu lar susp,exten ded release Inject 30 mg every month by intramusc ular route. active Not Available Not Available No t Available cabozantin ib 60 mg tablet Take 1 tablet every day by oral route. 05/15 completed Not Available Not Available Not Available Cabometyx 20 mg tablet 05/15 completed Not Available Not Available Not Available Colby-Phos Neutral 250 mg tablet 10/07 completed Not Available Not Available Not Available Vitals Date Recorded Body height Body mass index (BMI) Body weight Heart rate Oxygen saturation Oxygen saturation in Arterial blood by Pulse oximetry Systolic blood pressure Diastolic blood pressure Provider Name and Address Organization Details Last Updated DateTime 4 160.02 cm 28.3 kg/m2 00261.4 2 g 77 /min 97 % 97 % 122 mm[Hg] 66 mm[Hg] Sonia Sparks MA [facility] 4 11:16:24 Social History Question Answer Notes LastModified by Organizat ion Details LastModified Time Tobacco Smoking Status Never Smoker Kim Roque MA [facility], [place] - [facility] 10/08/2023 11:15:25 Do You Have An Advance Directive? No Working On [email or web address] Information not available 04/29/2024 What Is Your Level Of Alcohol Consumption? None Information not available 10/08/2023 Are You Blind Or Do You Have Difficulty Seeing? No Information not available 10/08/2023 What Is Your Level Of Caffeine Consumption? Heavy Information not available 01/07/2024 In The 14 Days Before Symptom Onset, Have You Had Close Contact With A Laboratory-confir Symptom.ly COVID-19 While That Case Was Ill? No Information not available 01/07/2024 In The 14 Days Before Symptom Onset, Have You Had Close Contact With A Person Who Is Under Investigation For COVID-19 While That Person Was Ill? No Information not available 01/07/2024 Have You Been To An Area Known To Be High Risk For COVID-19? No Information not available 01/07/2024 Are You Currently Employed? No Information not available 01/07/2024 Are You Deaf Or Do You Have Serious Difficulty Hearing? Yes Hearing Aids, Ear Surgery Information not available 10/08/2023 What Type Of Diet Are You Following? REGULAR Information not available 01/07/2024 What Is The Highest Grade Or Level Of School You Have Completed Or The Highest Degree You Have Received? [id number] Information not available 04/29/2024 Are There Any Guns Present In Your Home? Yes Information not available 04/29/2024 In The Past 7 Days, How Many Days Did You Exercise? 0 Information not available 04/29/2024 In The Past 7 Days, How Much Pain Have You [place]? None Information not available 04/29/2024 In General, Would You Say You Health Is: Good Information not available 04/29/2024 How Would You Describe The Condition Of Your Mouth And Teeth- Including False Teeth Or Dentures? Good Information not available 04/29/2024 Each Night, How Many Hours Of Sleep Do You Get? 8 Information no t available 04/29/2024 Has Anyone Ever Told You That You Snore? Yes Information not available 04/29/2024 In The Past 7 Days, How Often Have You [place] Sleepy In The Daytime? Usually Information not available 04/29/2024 # Alcohol Drinks Per Week 0 Information not available 04/29/2024 What Was The Date Of Your Most Recent Tobacco Screening? 05/15/2024 [email or web address] Information not available 05/15/2024 What Is Your Relationship Status? Information not available 10/08/2023 Do You Use Your Seat Belt Or Car Seat Routinely? Yes Information not available 04/08/2024 Do You Have Smoke And Carbon Monoxide Detectors In Your Home? Yes Information not available 01/07/2024 Do You Feel Stressed (tense, Restless, Nervous, Or Anxious, Or Unable To Sleep At Night)? [id number] Information not available 01/07/2024 Do You Use Any Illicit Or Recreational Drugs? No Information not available 01/07/2024 Do You Use Sunscreen Routinely? No Information not available 04/29/2024 Has Tobacco Cessation Counseling Been Provided? No Information not available 04/08/2024 Do You Or Have You Ever Used Any Other Forms Of Tobacco Or Nicotine? No Information not available 04/08/2024 Sex: Female Functional Status Question Answer Note LastModified by Organization D etails LastModified Time Are you able to care for yourself? Yes Information n ot available 10/08/2023 What is your exercise level? None Information not available 01/07/2024 Mental Status None recorded. Family History Relationship Description Onset Age of this Age Resolved Age Notes LastModified by Organization Details LastModified Time Sister Malignant tumor of breast [email or web address] Not available 2023 11:14:23 Sister Diabetes mellitus [email or web address] Not available 2023 11:14:54 Mother Dementia [email or web address] Not availabl e 10/08/2023 11:14:29 Mother Disorder of thyroid gland [email or web address] Not available 2023 11:15:00 Mother Heart disease [email or web address] Not available 2023 11:15:05 Mother Hypertensive disorder [email or web address] Not available 2023 11:15:10 Mother Hypercholest erolemia [email or web address] Not available 2023 11:15:15 Medical History Condition Response Coronary Artery Disease N Other N High Blood Pressure Y Atrial Fibrillation N Kidney or Bladder Problems N Thyroid Problems Y GI Problems N Depression N COPD N Blood Clots N Have you had a mammogram in the last yea r? Y Skin Problems N Anemia N Heart Attack ([place]) N Anxiety Disorder N Diabetes N Muscle, Joint, or Bone Problems N Seizures/Epilepsy N Have you had a colonoscopy in the last 1 0 years? N Acid Reflux (GERD) N Cancer Y Stroke N Asthma N Allergies Y Have you had a PSA blood test in the t year? N High Cholesterol Y Hepatitis N Liver Disease N Headaches N Osteoporosis N Heart Failure N Gynecological History Statement/Question Response If Post Menopausal, Age at Menopause 37 Obstetrics History GPAL:G 4 P 4 0 0 4 Type Value Full Term 4 Living 4 Total 4 Immunizations Vaccine Type Date Status Note Provider Nam e and Address Organization Details Recorded Time COVID-19, mRNA, LNP-S, PF, 100 mcg/0.5mL dose or 50 mcg/0.25mL dose 1 completed Belkys Rosario null, [place] [facility] 01/06/2024 16:09:39 COVID-19, mRNA, LNP-S, PF, 100 mcg/0.5mL dose or 50 mcg/0.25mL dose 1 completed Belkys [place], [place] [facility] 01/06/2024 16:09:39 COVID-19, mRNA, LNP-S, PF, 100 mcg/0.5mL dose or 50 mcg/0.25mL dose 1 completed Belkys [place] [facility] 01/06/2024 16:09:39 COVID-19, mRNA, LNP-S, PF, 100 mcg/0.5mL dose or 50 mcg/0.25mL dose 1 [place] Belkys [place]zo[place] [facility] 01/06/2024 16:09:39 pneumococcal polysaccharide PPV23 5 [place] [facility] 01/06/2024 16:09:39 influenza, unspecified formulation 5 completed Belkys [place] [facility] 01/06/2024 16:09:39 influenza, unspecified formulation 4 completed Bel[place]ys [place] [facility] 01/06/2024 16:09:39 influenza, unspecified formulation 8 completed Belkys [place] [facility] 01/06/2024 16:09:39 Tdap 1 [place] [facility] 01/06/2024 16:09:39 Pneumococcal conjugate PCV 13 1 [place] [facility] 01/06/2024 16:09:39 Pneumococcal conjugate PCV 13 6 completed Belkys [place] [facility] 01/06/2024 16:09:39 zoster live 5 completed Belkys [place] [facility] 01/06/2024 16:09:39 Influenza, high-dose, trivalent, PF 7 completed Belkys [place] [facility] 01/06/2024 16:09:39 Influenza, high-dose, trivalent, PF 9 completed Belkys [place] [facility] 01/06/2024 16:09:39 Influenza, high-dose, trivalent, PF 9 completed Belkys [place] [facility] 01/06/2024 16:09:39 Influenza, high-dose, trivalent, PF 6 completed Belkys [place] [facility] 01/06/2024 16:09:39 Influenza, high-dose, trivalent, PF 4 completed Julio César Briseno MD Attn: Accounting,[address] [place], [address], [facility] - [facility] 04/26/2024 14:18:36 Past Encounters Encounter ID Performer Location Encounter Start Date Encounter Closed Date Diagnosis/Indication Diagnosis SNOMED-CT Code Diagnosis ICD10 Code [id number] Julio César Briseno MD [facility] (Adult Med) [address] [place] [address] 04/08/2024 10:56:47 04/08/2024 12:00:54 Overweight 213905069 E66.3 Administra tion of influenza vaccine 86839423 Z23 Essential hypertension 63459581 I10 Hyperlipidemia 38407329 E78.5 Hypothyroidism 52169022 E03.9 Anxiety 58413833 F41.9 Health Concerns Section Related Observation LastModified by Organization Detai ls LastModified Time None Recorded Concern Status LastModified by Organization Details LastModified Time None Recorded Payers Encounter Date Sequence Insurance Name Policy Number Policy Salter Covered Member ID Salter Member ID Guarantor Name 04/08/2024 2 [employer] - OPTIONS [place] Vivod [id number] [place] 04/08/2024 1 [place] - [place] Schwarz Vivod [id number] [place] Notes Date Note Type Note Provider Name and Address Organization Details Recorded Time 04/08/2024 text/html hypertension blo od pressure 122/66 since she is asymptomatic she is taking her medications. Anxiety good days and bad days depending upon her cancer. Hyperlipidemia tries to follow a low-fat diet she does take her simvastatin hypothyroid denies heat or cold intolerance she does struggle with energy level from time to time. She does take Ditropan but she feels like it just gives her too much of a dry mouth. She is taking the chemotherapy from Oncology for her neuroendocrine tumor Julio César Briseno MD Attn: Accounting,[address] [facility], [place], [address], [facility] 04/26/2024 14:21:19 OBGyn Episode No OBEpisode recorded.
--- OUTSIDE RECORDS SUMMARY | 2024-06-25 22:01 | XMS_ITS | Continuity of Care Document ---
Author Organization [facility] (Adult [facility]) Address [address] [place] [address] Care Team Providers Care Plastic Surgeon Name Role Phone KATLYN BRISENO Primary Care Provider [phone] Assessment Encounter Date Assessment Date Assessment LastModified by Organization Details LastModified Time 05/15/2024 05/15/2024 reiterated that she needs to take her antihypertensives on a daily basis. Needs to go back on her Cymbalta 30 mg daily. We have talked about that at last visit but she said she thought she could do without it but she knows now that she needs to take it. Dyslipidemia simvastatin recheck her vitamin-D check CBC CMP lipid vitamin-D and thyroid studies. I will see her in 2 months [email or web address] Not available 05/16/2024 15:53:37 Plan of Treatment Reminders Order Date Submit Date Provider Last Modified By Organization Details Last Modified Time Details Appointments ANY 15 2024 09:15A Karishma Briseno MD Not available Not available Not available Lab vitamin D, 25-hydrox y, total, serum 2023 024 [facility], [address], [place], [address], 05/16/2024 09:14:43 lipid panel, serum 2023 024 [facility], [address], [place], [address], 05/16/2024 09:14:36 CMP, serum or plasma 2023 024 [facility], [address], [place], [address], 05/16/2024 09:14:38 CBC w/ auto diff 2023 024 [facility], [address], [place], [address], 05/16/2024 09:14:40 unlisted lab - T4, free 2023 [place], [address], [place], [address], 05/16/2024 09:14:37 T3, free, serum or plasma 2023 [place], [address], [place], [address], 05/16/2024 09:14:42 TSH, ultra-sen sitive, serum 2023 024 [place] [facility], [address], [place], [address], 05/16/2024 09:14:39 Referral None recorded. Procedures None recorded. Surgeries None recorded. Imaging None recorded. Medication Orders None recorded. Patient TargetsNo targets recorded. Patient Instructions Encounter Date Encounter Id Patient Instructions Last Modified By Organization Details Last Modified Time 05/15/2024 [id number] A healthy lifestyle: care instructions [id number] Not available 05/15/2024 14:09:48 Reason for Referral None Reported. Results Created Date Observation Date Name Description Value Unit Range Abnormal Flag Note LastModifiedBy Organization Detail LastModifiedTime 06/21/20 24 06/21/2024 CT, brain , w/wo contr ast No observ ation record ed. [facility] [address], [place], [address], 06/22/2024 11:20:04 Result Notes None recorded. Problems Name Problem SNOMED Code Status Onset Date Resolution Date Notes Provider Name and Address Organization Details Recorded Time Essential hypertension 07146162 Active 2023 Katlyn Briseno MD Attn: Jannet g,[address] [facility], [place], [address], [place] - [facility] 4 15:31:28 Hyperlipidemia 80810027 Active 2023 Katlyn Briseno MD Attn: Jannet bains,[address] [facility], [place], [address], [place] [facility] 4 15:31:29 Hypothyroidism 66401454 Active 2023 Katlyn Briseno MD Attn: Jannet bains,[address] [facility], [place], [address], [place] [facility] 4 15:31:35 Neuroendocrine tumor 176056920 Active 2023 Katlyn Briseno MD Attn: Jannet bains,[address] [facility], [place], [address], [place] [facility] 4 15:31:36 Anxiety 16303702 Active 2023 Katlyn Briseno MD Attn: Bogdanmedina bains,[address] [facility], [place], [address], [place] [facility] 4 15:31:40 Vitamin D deficiency 76123664 Active 2023 Jerman Metz MA null, [place] - [facility] 12:42:00 Problem Notes None recorded. Procedures Surgical History Date Name Laterality Status Provider Name and Address Organization Details Recorded Time Appendectomy completed IRIS Quan [facility] 10/08/2023 11:13:30 Cholecystectomy completed IRIS Quan - [facility] 10/08/2023 11:13:37 Gastrointestinal Surgery completed IRIS Quan - [facility] 10/08/2023 11:13:42 Joint Replacement completed IRIS Guevara - [facility] 10/08/2023 11:13:50 Tonsillectomy completed IRIS Quan - [facility] 10/08/2023 11:13:58 Knee Surgery completed IRIS Quan - [facility] 10/08/2023 11:14:04 Dilation and Curettage completed IRIS Quan - [facility] 10/08/2023 11:14:10 Total hysterectomy completed Demetrius corbin [place] - [facility] 10/08/2023 11:14:15 Imaging Results None recorded. Procedure Notes None recorded. Medical Equipment None Reported. Allergies Allergen ID Allergen Name Allergen Category Reaction Reaction Severity Criticality Documentation Date Start Date Code Code System Note Provider Name and Address Organization Details Recorded Time 16880108 Vytorin medicatio n Not available Not available Not available 10/08/2023 doesn 't remem cora Belkys Rosario null, [place] - [facility] 4 09:52:04 583996 Altace medicatio n cough Not available Not available 10/08/2023 73288 8 RxNorm Kim Roque IRIS darrius, [place] - [facility] 4 11:12:56 921663 morphine medicatio n rash Not available Not available 10/08/2023 7052 RxNorm Kim Roque MA [place], [place] - [facility] 4 11:13:07 Medications Name Sig Start Date [...] bromide 42 mcg (0.06 %) nasal spray [place] 1 spray twice a day by nasal [...] Details Last Updated DateTime 4 160.02 cm 29.6 kg/m2 57419.2 9 g 85 /min 95 % 95 % 140 mm[Hg] 70 mm[Hg] Mag Bangura MA [facility] 4 11:32:33 Social History Question Answer Notes LastModified by Organizat ion Details LastModified Time Tobacco Smoking Status Never Smoker Kim Roque MA [facility], [facility] 10/08/2023 11:15:25 Do You Have An Advance [...] You Had Close Contact With A Laboratory-confir med COVID-19 While That Case Was Ill? No [...] Or The Highest Degree You Have Received? AH97122-9 Information not available 04/29/2024 Are There Any Guns Present In Your Home? Yes Information not available 04/29/2024 In The Past 7 Days, How Many Days Did You Exercise? 0 Information not available 04/29/2024 In The Past 7 Days, How Much Pain Have You Big Indian? None Information not available 04/29/2024 In General, [...] Past 7 Days, How Often Have You Big [place] Sleepy In The Daytime? Usually Information not [...] Anxious, Or Unable To Sleep At Night)? [id number] Information not available 01/07/2024 Do You Use [...] Skin Problems N Anemia N Heart Attack ([place]) N Anxiety Disorder N Diabetes N Muscle, Joint, or Bone Problems N Seizures/Epilepsy N Have you had a colonoscopy in the last 1 0 years? N Acid Reflux (GERD) N Cancer Y Stroke N Asthma N Allergies Y Have you had a PSA blood test in the las t year? N High Cholesterol Y Hepatitis N Liver Disease N Headaches N Heart Failure N Osteoporosis N Gynecological History Statement/Question Response If Post [...] [place], [place] [facility] 01/06/2024 16:09:39 pneumococcal polysaccharide PPV23 5 completed Belkys [place] [facility] 01/06/2024 16:09:39 influenza, unspecified formulation 5 completed Belk[place] [facility] 01/06/2024 16:09:39 influenza, unspecified formulation 4 completed Bel[place] [facility] 01/06/2024 16:09:39 influenza, unspecified formulation 8 completed [place] [facility] 01/06/2024 16:09:39 Tdap 1 completed [place] [facility] 01/06/2024 16:09:39 Pneumococcal conjugate PCV 13 1 completed [place] [facility] 01/06/2024 16:09:39 Pneumococcal conjugate PCV 13 6 completed Belkys [place] [facility] 01/06/2024 16:09:39 zoster live 5 completed Belkys [place] [facility] 01/06/2024 16:09:39 Influenza, high-dose, trivalent, PF 7 completed Bel[place] [facility] 01/06/2024 16:09:39 Influenza, high-dose, trivalent, PF 9 completed [place] [facility] 01/06/2024 16:09:39 Influenza, high-dose, trivalent, PF 9 completed Bel[place] [facility] 01/06/2024 16:09:39 Influenza, high-dose, trivalent, PF 6 completed Bel[place] [facility] 01/06/2024 16:09:39 Influenza, high-dose, trivalent, PF 4 completed Katlyn Briseno MD Attn: Accounting,[address] [place], [address], [place] [facility] 04/26/2024 14:18:36 Past Encounters Encounter ID Performer Location Encounter Start Date Encounter Closed Date Diagnosis/Indication Diagnosis SNOMED-CT Code Diagnosis ICD10 Code [id number] [facility] [address] [place] [phone] 04/29/2024 09:35:24 04/29/2024 10:43:26 Adult health examination 260994661 Z00.00 Postmenopausal state 764 43247 Z78.0 [id number] MD [facility] (Adult Med) [address] [place] [phone] 05/15/2024 11:10:01 05/15/2024 12:40:02 Body mass index 25-29 - overweight 688417006 Z68.29 Overweight 017358050 E66 .3 Essential hypertension 61858916 I10 Hyperlipidemia 46413728 E78.5 Hypothyroidism 29729063 E03.9 Vitamin D deficiency 347 04931 E55.9 Anxiety 62556096 F41.9 Neuroendoc rine carcinoma 578358539 C7A.8 Health Concerns Section Related Observation LastModified by Organization Detai ls LastModified Time None Recorded Concern Status LastModified by Organization Details LastModified Time None Recorded Payers Encounter Date Sequence Insurance Name Policy Number Policy Salter Covered Member ID Salter Member ID Guarantor Name 05/15/2024 2 [employer] - [employer]IONS [place] [id number] [place] 05/15/2024 1 [place] - [place] - [place] M [place] [id number] [place] Notes Date Note Type Note Provider Name and Address Organization Details Recorded Time 05/15/2024 text/html 1. Her anxiety i s a little bit high she was apparently told that her cancer is progressing on therapy. This is caused her great concern. Hyperlipidemia dietary indiscretions abound. Hypothyroid no heat or cold intolerance low vitamin-D level needs to be checked dyslipidemia she is taking the simvastatin Katlyn Briseno MD Attn: Accounting[address] [facility], [place], [address], [facility] 05/16/2024 15:54:53 OBGyn Episode No OBEpisode recorded.
--- OUTSIDE RECORDS SUMMARY | 2024-06-25 22:01 | XMS_ITS | Data Portability ---
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 Name Role Phone KATLYN BRISENO Primary Care Provider Assessment Encounter Date Assessment Date Assessment LastModified by Organization Details LastModified Time 10/08/2023 10/08/2023 We will continue current therapy she currently is getting some blood work from her oncologist her diagnosis have been discussed she will monitor blood pressures at home daily follow-up with me in 3 months Not available 10/13/2023 15:33:44 01/07/2024 01/07/2024 blood pressure stable hypothyroid check blood work anxiety increase duloxetine to 60 obesity handout given and discussed follow up with me in 4 months also CMP and a lipid panel [email or web address] Not available 01/07/2024 14:20:41 04/08/2024 04/08/2024 blood pressure i s doing fine flu shot today healthy lifestyle care instructions she will go back on her duloxetine says she has not been taking and I told her for the 1st week she may get nauseated she will follow up with me in a month diagnosis have been discussed all questions have been answered [email or web address] Not available 04/26/2024 14:19:59 04/29/2024 04/29/2024 health risk assessments discussed immunizations and screenings ordered where appropriate and patient agreeable all questions answered follow up at her regularly scheduled [email or web address] Not available 05/19/2024 22:19:09 05/15/2024 05/15/2024 reiterated that she needs to [...] I will see her in 2 months [email or web address] Not available 05/16/2024 15:53:37 Plan of Treatment Reminders Order Date Submit Date Provider Last Modified By Organization Details Last Modified Time Details Appointments ANY 15 2024 09:15A Karishma Briseno MD Not available Not available Not available Lab CMP, serum or plasma 2023 [address] [facility], [address], [place], [address], 01/29/2024 06:20:11 lipid panel, serum 2023 024 [facility], [address], [place], [address], 01/29/2024 06:20:10 TSH, ultra-sen sitive, serum 2023 024 [facility], [address], [place], [address], 01/29/2024 06:20:11 T4, free, serum 2023 024 [facility], [address], [place], [address], 01/29/2024 06:20:12 T3, free, serum or plasma 2023 024 [facility], [address], [place], [address], 01/29/2024 06:20:12 vitamin D, 25-hydrox y, total, serum 2023 024 [facility], [address], [place], [address], 05/16/2024 09:14:43 lipid panel, serum 2023 0[address] [facility] [address], [place], [address], 05/16/2024 09:14:36 CMP, serum or plasma 2023 [facility], [address], [place], [address], 05/16/2024 09:14:38 CBC w/ auto diff 2023 [facility], [address], [place], [address], 05/16/2024 09:14:40 unlisted lab - T4, free 2023 [facility], [address], [place], [address], 05/16/2024 09:14:37 T3, free, serum or plasma 2023 [facility], [address], [place], [address], 05/16/2024 09:14:42 TSH, ultra-sen sitive, serum 2023 [facility], [address], [place], [address], 05/16/2024 09:14:39 Referral None recorded. Procedures None recorded. Surgeries None recorded. Imaging bone density 2023 [email or web address] [facility], [address] [facility], [place], [address], 06/18/2024 16:44:13 Medication Orders duloxetin e 60 mg capsule,d elayed release 2023 024 [id number], [address], [place], [place], [id number], 01/07/2024 14:20:18 Patient TargetsNo targets recorded. Patient Instructions Encounter Date Encounter Id Patient Instructions Last Modified By Organization Details Last Modified Time 01/07/2024 [id number] A healthy lifestyle: care instructions [email or web address] Not available 01/07/2024 14:21:08 04/08/2024 [id number] A healthy lifestyle: care instructions [email or web address] Not available 04/08/2024 12:26:46 04/29/2024 [id number] Medicare [facility] Preventive Checklist [email or web address] Not available 04/29/2024 11:43:36 05/15/2024 [id number] A healthy lifestyle: care instructions [email or web address] Not available 05/15/2024 14:09:48 Reason for Referral None Reported. Results Created Date Observation Date Name Description Value Unit Range Abnormal Flag Note LastModifiedBy Organization Detail LastModifiedTime 01/28/20 24 01/29/2024 LIPID PANEL cholesterol, total 154 mg/dL 100-19 9 Not Available [facility] ([facility]) [address] [place], [address], 01/29/2024 06:20:10 01/28/20 24 01/29/2024 LIPID PANEL triglyceride s 123 mg/dL 0-149 Not Available [facility] ([facility]) [address] [place], [address], 01/29/2024 06:20:10 01/28/20 24 01/29/2024 LIPID PANEL HDL cholesterol 61 mg/dL >39 Not Available [facility] ([facility]) [address] [place], [address], 01/29/2024 06:20:10 01/28/20 24 01/29/2024 LIPID PANEL VLDL cholesterol khurram 22 mg/dL 5-40 Not Available [facility] ([facility]) [address] [place], [address], 01/29/2024 06:20:10 01/28/20 24 01/29/2024 LIPID PANEL LDL chol calc ([facility]) 71 mg/dL 0-99 Not Available [facility] ([facility]) [address] [facility], [address], 01/29/2024 06:20:10 01/28/20 24 01/29/2024 COMP. METAB OLIC PANEL (14) glucose 106 mg/dL 70-99 above high normal Not Available [facility] ([facility]) [address] [facility] [place], [address], 01/29/2024 06:20:11 01/28/20 24 01/29/2024 COMP. METAB OLIC PANEL (14) BUN 21 mg/dL 8-27 Not Available [facility] ([facility]) [address] [facility] [place], [address], 01/29/2024 06:20:11 01/28/20 24 01/29/2024 COMP. METAB OLIC PANEL (14) creatinine 1.33 mg/dL 0.57-1 .00 above high normal Not Available [facility] ([facility]) [address] [facility], [address], 01/29/2024 06:20:11 01/28/20 24 01/29/2024 COMP. METAB OLIC PANEL (14) eGFR 42 mL/mi n/1.7 3 >59 below low normal Not Available [facility] ([facility]) [address] [facility], [address], 01/29/2024 06:20:11 01/28/20 24 01/29/2024 COMP. METAB OLIC PANEL (14) BUN/creatini ne ratio 16 12-28 Not Available [facility] ([facility]) [address] [facility] [place], [address], 01/29/2024 06:20:11 01/28/20 24 01/29/2024 COMP. METAB OLIC PANEL (14) sodium 141 mmol/ L 134-14 4 Not Available [facility] ([facility]) [address] [place], [address], 01/29/2024 06:20:11 01/28/20 24 01/29/2024 COMP. METAB OLIC PANEL (14) potassium 5.0 mmol/ L 3.5-5. 2 Not Available [facility] ([facility]) [address], [place], [address], 01/29/2024 06:20:11 01/28/20 24 01/29/2024 COMP. METAB OLIC PANEL (14) chloride 110 mmol/ L 96-106 above high normal Not Available [facility] ([facility]) [address], [place], [address], 01/29/2024 06:20:11 01/28/20 24 01/29/2024 COMP. METAB OLIC PANEL (14) carbon dioxide, total 20 mmol/ L 20-29 Not Available [facility] ([facility]) [address] [facility] [place], [address], 01/29/2024 06:20:11 01/28/20 24 01/29/2024 COMP. METAB OLIC PANEL (14) calcium 10.0 mg/dL 8.7-10 .3 Not Available [facility] ([facility]) [address] [facility] [place], [address], 01/29/2024 06:20:11 01/28/20 24 01/29/2024 COMP. METAB OLIC PANEL (14) protein, total 6.0 g/dL 6.0-8. 5 Not Available [facility] ([facility]) [address] [facility] [place], [address], 01/29/2024 06:20:11 01/28/20 24 01/29/2024 COMP. METAB OLIC PANEL (14) albumin 4.1 g/dL 3.8-4. 8 Not Available [facility] ([facility]) [address] [facility] [place], [address], 01/29/2024 06:20:11 01/28/20 24 01/29/2024 COMP. METAB OLIC PANEL (14) globulin, total 1.9 g/dL 1.5-4. 5 Not Available [facility] ([facility]) [address] [place], [address], 01/29/2024 06:20:11 01/28/20 24 01/29/2024 COMP. METAB OLIC PANEL (14) bilirubin, total 0.4 mg/dL 0.0-1. 2 Not Available [facility] ([facility]) [address] [place], [address], 01/29/2024 06:20:11 01/28/20 24 01/29/2024 COMP. METAB OLIC PANEL (14) alkaline phosphatase 73 IU/L 44-121 Not Available [facility] ([facility]) [address] [place], [address], 01/29/2024 06:20:11 01/28/20 24 01/29/2024 COMP. METAB OLIC PANEL (14) AST (SGOT) 27 IU/L 0-40 Not Available [facility] ([facility]) [address] [place], [address], 01/29/2024 06:20:11 01/28/20 24 01/29/2024 COMP. METAB OLIC PANEL (14) ALT (SGPT) 15 IU/L 0-32 Not Available [facility] ([facility]) [address] [place], [address], 01/29/2024 06:20:11 01/28/20 24 01/29/2024 TSH TSH 7.820 uIU/m L 0.450- 4.500 above high normal Not Available [facility] ([facility]) [address] [place], [address], 01/29/2024 06:20:11 01/28/20 24 01/29/2024 TRIIO DOTHY GERALD E (T3), FREE triiodothyro nine (T3), free 1.8 pg/mL 2.0-4. 4 below low normal Not Available [facility] ([facility]) [address] [facility], [address], 01/29/2024 06:20:12 01/28/2001/29/2024 T4,FR EE(DI RECT) T4,free(dire ct) 1.00 NG/dL 0.82-1 .77 Not Available [facility] ([facility]) [address] [place], [address], 01/29/2024 06:20:12 05/15/2005/16/2024 LIPID PANEL cholesterol, total 133 mg/dL 100-19 9 Not Available [facility] ([facility]) [address] [place], [address], 05/16/2024 09:14:36 05/15/2005/16/2024 LIPID PANEL triglyceride s 113 mg/dL 0-149 Not Available [facility] ([facility]) [address] [place], [address], 05/16/2024 09:14:36 05/15/2005/16/2024 LIPID PANEL HDL cholesterol 43 mg/dL >39 Not Available [facility] ([facility]) [address] [place], [address], 05/16/2024 09:14:36 05/15/2005/16/2024 LIPID PANEL VLDL cholesterol khurram 21 mg/dL 5-40 Not Available [facility] ([facility]) [address] [place], [address], 05/16/2024 09:14:36 05/15/2005/16/2024 LIPID PANEL LDL chol calc ([facility]) 69 mg/dL 0-99 Not Available [facility] ([facility]) [address] [place], [address], 05/16/2024 09:14:36 05/15/20 24 05/16/2024 T4, FREE T4,free(dire ct) 0.77 NG/dL 0.82-1 .77 below low normal Not Available [facility] ([facility]) [address] [facility], [place], [address], 05/16/2024 09:14:37 05/15/20 24 05/16/2024 COMP. METAB OLIC PANEL (14) glucose 102 mg/dL 70-99 above high normal Not Available [facility] ([facility]) [address] [facility], [address], 05/16/2024 09:14:38 05/15/20 24 05/16/2024 COMP. METAB OLIC PANEL (14) BUN 22 mg/dL 8-27 Not Available [facility] ([facility]) [address] [facility], [address], 05/16/2024 09:14:38 05/15/20 24 05/16/2024 COMP. METAB OLIC PANEL (14) creatinine 1.28 mg/dL 0.57-1 .00 above high normal Not Available [facility] ([facility]) [address] [place], [address], 05/16/2024 09:14:38 05/15/20 24 05/16/2024 COMP. METAB OLIC PANEL (14) eGFR 44 mL/mi n/1.7 3 >59 below low normal Not Available [facility] ([facility]) [address] [facility], [address], 05/16/2024 09:14:38 05/15/20 24 05/16/2024 COMP. METAB OLIC PANEL (14) BUN/creatini ne ratio 17 12-28 Not Available [facility] ([facility]) [address] [place], [address], 05/16/2024 09:14:38 05/15/20 24 05/16/2024 COMP. METAB OLIC PANEL (14) sodium 139 mmol/ L 134-14 4 Not Available [facility] ([facility]) [address] [facility], [address], 05/16/2024 09:14:38 05/15/20 24 05/16/2024 COMP. METAB OLIC PANEL (14) potassium 5.0 mmol/ L 3.5-5. 2 Not Available [facility] ([facility]) [address] [facility], [address], 05/16/2024 09:14:38 05/15/20 24 05/16/2024 COMP. METAB OLIC PANEL (14) chloride 105 mmol/ L 96-106 Not Available [facility] ([facility]) [address] [facility] [place], [address], 05/16/2024 09:14:38 05/15/20 24 05/16/2024 COMP. METAB OLIC PANEL (14) carbon dioxide, total 21 mmol/ L 20-29 Not Available [facility] ([facility]) [address] [facility], [address], 05/16/2024 09:14:38 05/15/20 24 05/16/2024 COMP. METAB OLIC PANEL (14) calcium 9.9 mg/dL 8.7-10 .3 Not Available [facility] ([facility]) [address] [facility], [address], 05/16/2024 09:14:38 05/15/20 24 05/16/2024 COMP. METAB OLIC PANEL (14) protein, total 6.1 g/dL 6.0-8. 5 Not Available [facility] ([facility]) [address] [facility], [address], 05/16/2024 09:14:38 05/15/20 24 05/16/2024 COMP. METAB OLIC PANEL (14) albumin 4.1 g/dL 3.8-4. 8 Not Available [facility] ([facility]) [address] [place], [address], 05/16/2024 09:14:38 05/15/20 24 05/16/2024 COMP. METAB OLIC PANEL (14) globulin, total 2.0 g/dL 1.5-4. 5 Not Available [facility] ([facility]) [address] [place], [address], 05/16/2024 09:14:38 05/15/20 24 05/16/2024 COMP. METAB OLIC PANEL (14) bilirubin, total 0.5 mg/dL 0.0-1. 2 Not Available [facility] ([facility]) [address] [place], [address], 05/16/2024 09:14:38 05/15/20 24 05/16/2024 COMP. METAB OLIC PANEL (14) alkaline phosphatase 74 IU/L 44-121 Not Available [facility] ([facility]) [address] [place], [address], 05/16/2024 09:14:38 05/15/20 24 05/16/2024 COMP. METAB OLIC PANEL (14) AST (SGOT) 27 IU/L 0-40 Not Available [facility] ([facility]) [address] [place], [address], 05/16/2024 09:14:38 05/15/20 24 05/16/2024 COMP. METAB OLIC PANEL (14) ALT (SGPT) 14 IU/L 0-32 Not Available [facility] ([facility]) [address] [place], [address], 05/16/2024 09:14:38 05/15/20 24 05/16/2024 TSH TSH 15.100 uIU/m L 0.450- 4.500 above high normal Not Available [facility] ([facility]) [address] [facility], [place], [address], 05/16/2024 09:14:39 05/15/20 24 05/16/2024 CBC WITH DIFFE RENTI AL/PL ATELE T WBC 8.5 x10e3 /uL 3.4-10 .8 Not Available [facility] ([facility]) [address] [facility], [place], [address], 05/16/2024 09:14:40 05/15/20 24 05/16/2024 CBC WITH DIFFE RENTI AL/PL ATELE T RBC 3.66 x10e6 /uL 3.77-5 .28 below low normal Ovalo cytes prese nt. Not Available [facility] ([facility]) [address] [facility], [place], [address], 05/16/2024 09:14:40 05/15/20 24 05/16/2024 CBC WITH DIFFE RENTI AL/PL ATELE T hemoglobin 11.9 g/dL 11.1-1 5.9 Not Available [facility] ([facility]) [address] [place], [address], 05/16/2024 09:14:40 05/15/20 24 05/16/2024 CBC WITH DIFFE RENTI AL/PL ATELE T hematocrit 36.8 % 34.0-4 6.6 Not Available [facility] ([facility]) [address] [place], [address], 05/16/2024 09:14:40 05/15/20 24 05/16/2024 CBC WITH DIFFE RENTI AL/PL ATELE T MCV 101 fL 79-97 above high normal Not Available [facility] ([facility]) [address] [place], [address], 05/16/2024 09:14:40 05/15/20 24 05/16/2024 CBC WITH DIFFE RENTI AL/PL ATELE T MCH 32.5 pg 26.6-3 3.0 Not Available [facility] ([facility]) [address] [facility], [place], [address], 05/16/2024 09:14:40 05/15/20 24 05/16/2024 CBC WITH DIFFE RENTI AL/PL ATELE T MCHC 32.3 g/dL 31.5-3 5.7 Not Available [facility] ([facility]) [address] [facility], [place], [address], 05/16/2024 09:14:40 05/15/20 24 05/16/2024 CBC WITH DIFFE RENTI AL/PL ATELE T RDW 15.4 % 11.7-1 5.4 Not Available [facility] ([facility]) [address] [facility], [place], [address], 05/16/2024 09:14:40 05/15/20 24 05/16/2024 CBC WITH DIFFE RENTI AL/PL ATELE T platelets 147 x10e3 /uL 150-45 0 below low normal Not Available [facility] ([facility]) [address] [facility], [place], [address], 05/16/2024 09:14:40 05/15/20 24 05/16/2024 CBC WITH DIFFE RENTI AL/PL ATELE T neutrophils 35 % notest ab. Not Available [facility] ([facility]) [address] [place], [address], 05/16/2024 09:14:40 05/15/20 24 05/16/2024 CBC WITH DIFFE RENTI AL/PL ATELE T lymphs 55 % notest ab. Atypi khurram lymph ocyte s. Not Available [facility] ([facility]) [address] [place], [address], 05/16/2024 09:14:40 05/15/20 24 05/16/2024 CBC WITH DIFFE RENTI AL/PL ATELE T monocytes 5 % notest ab. Not Available [facility] ([facility]) [address] [facility], [place], [address], 05/16/2024 09:14:40 05/15/20 24 05/16/2024 CBC WITH DIFFE RENTI AL/PL ATELE T eos 4 % notest ab. Not Available [facility] ([facility]) [address] [facility], [place], [address], 05/16/2024 09:14:40 05/15/20 24 05/16/2024 CBC WITH DIFFE RENTI AL/PL ATELE T basos 1 % notest ab. Not Available [facility] ([facility]) [address] [facility], [place], [address], 05/16/2024 09:14:40 05/15/20 24 05/16/2024 CBC WITH DIFFE RENTI AL/PL ATELE T neutrophils (absolute) 3.0 x10e3 /uL 1.4-7. 0 Not Available [facility] ([facility]) [address] [facility], [place], [address], 05/16/2024 09:14:40 05/15/20 24 05/16/2024 CBC WITH DIFFE RENTI AL/PL ATELE T lymphs (absolute) 4.7 x10e3 /uL 0.7-3. 1 above high normal Not Available [facility] ([facility]) [address] [facility], [place], [address], 05/16/2024 09:14:40 05/15/20 24 05/16/2024 CBC WITH DIFFE RENTI AL/PL ATELE T monocytes(ab solute) 0.4 x10e3 /uL 0.1-0. 9 Not Available [facility] ([facility]) [address] [facility], [place], [address], 05/16/2024 09:14:40 05/15/20 24 05/16/2024 CBC WITH DIFFE RENTI AL/PL ATELE T eos (absolute) 0.3 x10e3 /uL 0.0-0. 4 Not Available [facility] ([facility]) [address] [facility], [place], [address], 05/16/2024 09:14:40 05/15/20 24 05/16/2024 CBC WITH DIFFE RENTI AL/PL ATELE T baso (absolute) 0.1 x10e3 /uL 0.0-0. 2 Not Available [facility] ([facility]) [address] [facility], [place], [address], 05/16/2024 09:14:40 05/15/20 24 05/16/2024 CBC WITH DIFFE RENTI AL/PL ATELE T hematology comments: NOTE: Trina badillo diffe renti al was perfo rmed. Not Available [facility] ([facility]) [address] [facility], [place], [address], 05/16/2024 09:14:40 05/15/20 24 05/16/2024 TRIIO DOTHY GERALD E (T3), FREE triiodothyro nine (T3), free 1.7 pg/mL 2.0-4. 4 below low normal Not Available [facility] ([facility]) [address] [facility], [place], [address], 05/16/2024 09:14:42 05/15/20 24 05/16/2024 VITAM IN D, 25-HY DROXY vitamin D, 25-hydroxy 19.7 NG/mL 30.0-1 00.0 below low normal Vitam in D defic iency has been defin ed by the Insti tute of Medic ine and an Endoc rine Socie ty pract ice guide line as a level of serum 25-OH vitam in D less than 20 ng/mL (1,2) . The Endoc rine Socie ty went on to furth er defin e vitam in D insuf ficie ncy as a level betwe en 21 and 29 ng/mL (2). 1. IOM (Inst itute of Medic ine). 2010. Dieta ry refer ence intak es for calci um and D. Washi ngton [place]: The Natio nal [facility] Press . 2. Peggy k MF, Binstephanie ey [place], Franko off-F errar i VILLATORO, et al. Evalu ation , treat ment, and preve ntion of vitam in D defic iency : an Endoc rine Socie ty clini khurram pract ice guide line. JCEM. 2010; 96(7) :1911 -30. Not Available [facility] ([facility]) [address], [place], [address], 05/16/2024 09:14:43 01/06/20 24 06/13/2023 MAMMO , scree danielle, tomos ynthe sis, bilat eral No observ ation record ed. Not Available 2023 16:04:29 06/21/20 24 06/21/2024 CT, brain , w/wo contr ast No observ ation record ed. [facility] [address], [place], [address], 06/22/2024 11:20:04 Result Notes None recorded. Problems Name Problem SNOMED Code Status Onset Date Resolution Date Notes Provider Name and Address Organization Details Recorded Time Essential hypertension 45474466 Active 2023 Katlyn Briseno MD Attn: Jannet bains,[address] [facility], [place], [address], [facility] 4 15:31:28 Hyperlipidemia 90597415 Active 2023 Katlyn Briseno MD Attn: Jannet bains,[address] [facility], [place], [address], [place] - [place] 4 15:31:29 Hypothyroidism 88296970 Active 2023 Katlyn Briseno MD Attn: Jannet bains,[address] [facility], [place], [address], [facility] - [facility] 4 15:31:35 Neuroendocrine tumor 493821413 Active 2023 Katlyn Briseno MD Attn: Jannet bains,[address] [facility], [place], [address], [place] 4 15:31:36 Anxiety 57559450 Active 2023 Katlyn Briseno MD Attn: Jannet bains,[address], [place], [address], [place] - [place] 4 15:31:40 Vitamin D deficiency 16344426 Active 2023 Jerman Metz MA null, [place] - [place] 12:42:00 Problem Notes None recorded. Procedures Surgical History Date Name Laterality Status Provider Name and Address Organization Details Recorded Time Appendectomy completed Kim Roque MA [facility] 10/08/2023 11:13:30 Cholecystectomy completed Kim Roque MA [facility] 10/08/2023 11:13:37 Gastrointestinal Surgery completed Kim Roque MA [facility] 10/08/2023 11:13:42 Joint Replacement completed Baldemar Roque MA [facility] 10/08/2023 11:13:50 Tonsillectomy completed Kim Roque MA [facility] 10/08/2023 11:13:58 Knee Surgery completed Kim Roque MA [facility] 10/08/2023 11:14:04 Dilation and Curettage completed Kim Roque MA [facility] 10/08/2023 11:14:10 Total hysterectomy completed Demetrius Roque MA [facility] 10/08/2023 11:14:15 Imaging Results Imaging Date Name Status LastModified by Organiz ation Details LastModified Time 06/13/2023 MAMMO, screening, tomosynthesis, bilateral completed Information not available 01/06/2024 16:04:29 06/21/2024 CT, brain, w/wo contrast completed [facility] [address], [place], [address], 06/22/2024 11:20:04 Procedure Notes None recorded. Medical Equipment None Reported. Allergies Allergen ID Allergen Name Allergen Category Reaction Reaction Severity Criticality Documentation Date Start Date Code Code System Note Provider Name and Address Organization Details Recorded Time 849180 Vytorin medicatio n Not available Not available Not available 10/08/2023 doesn 't remem cora Rosario null, [place] - [place] 4 09:52:04 442468 Altace medicatio n cough Not available Not available 10/08/2023 65250 8 RxNorm Kim Roque MA null, [place] - [place] 4 11:12:56 944951 morphine medicatio n rash Not available Not available 10/08/2023 7052 RxNorm Kim Roque MA null, [place] - [place] 4 11:13:07 Medications Name Sig Start Date [...] bromide 42 mcg (0.06 %) nasal spray [place] 1 spray twice a day by nasal [...] Available Not Available Vitals Date Recorded Body weight Body mass index (BMI) Body height Heart rate Body temperature Oxygen saturation Oxygen saturation in Arterial blood by Pulse oximetry Systolic blood pressure Diastolic blood pressure Systolic blood pressure Diastolic blood pressure Provider Name and Address Organization Details Last Updated DateTime 4 31376.8 5 g 29.5 kg/m2 160.02 cm 70 /min 97.4 [degF] 97 % 97 % 118 mm[Hg] 60 mm[Hg] 124 mm[Hg] 60 mm[Hg] Kim Roque MA [facility] 4 11:23:23 Date Recorded Body height Heart rate Oxygen saturation Oxygen saturation in Arterial blood by Pulse oximetry Systolic blood pressure Diastolic blood pressure Provider Name and Address Organization Details Last Updated DateTime 4 160.02 cm 72 /min 97 % 97 % 130 mm[Hg] 70 mm[Hg] Sonia Sparks MA [facility] [facility] 4 10:14:51 Date Recorded Body height Body mass index (BMI) Body weight Heart rate Oxygen saturation Oxygen saturation in Arterial blood by Pulse oximetry Systolic blood pressure Diastolic blood pressure Provider Name and Address Organization Details Last Updated DateTime 4 160.02 cm 28.3 kg/m2 02055.4 2 g 77 /min 97 % 97 % 122 mm[Hg] 66 mm[Hg] Sonia Sparks MA [facility] 4 11:16:24 Date Recorded Body height Body mass index (BMI) Body weight Heart rate Oxygen saturation Oxygen saturation in Arterial blood by Pulse oximetry Systolic blood pressure Diastolic blood pressure Provider Name and Address Organization Details Last Updated DateTime 4 160.02 cm 29.3 kg/m2 21219.5 4 g 89 /min 99 % 99 % 128 mm[Hg] 64 mm[Hg] Sonia Sparks MA [place] [facility] 4 09:44:47 Date Recorded Body height Body mass index (BMI) Body weight Heart rate Oxygen saturation Oxygen saturation in Arterial blood by Pulse oximetry Systolic blood pressure Diastolic blood pressure Provider Name and Address Organization Details Last Updated DateTime 4 160.02 cm 29.6 kg/m2 32658.2 9 g 85 /min 95 % 95 % 140 mm[Hg] 70 mm[Hg] Mag Bangura MA [place] [facility] 4 11:32:33 Social History Question Answer Notes LastModified by Organizat ion Details LastModified Time Tobacco Smoking Status Never Smoker Kim Roque MA [place], [place] - [facility] 10/08/2023 11:15:25 Do You Have An Advance Directive? No Working On Information not available 04/29/2024 What Is Your [...] Or The Highest Degree You Have Received? [id number] Information not available 04/29/2024 Are There Any Guns Present In Your Home? Yes Information not available 04/29/2024 In The Past 7 Days, How Many Days Did You Exercise? 0 Information not available 04/29/2024 In The Past 7 Days, How Much Pain Have You [place]? None Information not available 04/29/2024 In General, [...] Past 7 Days, How Often Have You [place] Sleepy In The Daytime? Usually Information not [...] Anxious, Or Unable To Sleep At Night)? [id number] Information not available 01/07/2024 Do You Use [...] Response Coronary Artery Disease N Other N Atrial Fibrillation N High Blood Pressure Y Kidney or Bladder Problems N Thyroid Problems Y GI Problems N Depression N COPD N Blood Clots N Have you had a mammogram in the last yea r? Y Skin Problems N Anemia N Heart Attack ([place]) N Anxiety Disorder N Diabetes N Muscle, [...] dose or 50 mcg/0.25mL dose 1 completed LEORA [place] - [place] 01/06/2024 16:09:39 COVID-19, mRNA, LNP-S, PF, 100 mcg/0.5mL dose or 50 mcg/0.25mL dose 1 completed LEORA Linda [facility] 01/06/2024 16:09:39 COVID-19, mRNA, LNP-S, PF, 100 mcg/0.5mL dose or 50 mcg/0.25mL dose 1 completed Belkys [place], [place] - [facility] 01/06/2024 16:09:39 COVID-19, mRNA, LNP-S, PF, 100 mcg/0.5mL dose or 50 mcg/0.25mL dose 1 completed Belkys [place] [facility] 01/06/2024 16:09:39 pneumococcal polysaccharide PPV23 5 completed Belkys [place] [facility] 01/06/2024 16:09:39 influenza, unspecified formulation 5 completed Belkys [place] [facility] 01/06/2024 16:09:39 influenza, unspecified formulation 4 completed Belkys [place] [facility] 01/06/2024 16:09:39 influenza, unspecified formulation 8 completed Belkys [place] [facility] 01/06/2024 16:09:39 Tdap 1 completed Belkys [place] [facility] 01/06/2024 16:09:39 Pneumococcal conjugate PCV 13 1 completed Belkys [place] [facility] 01/06/2024 16:09:39 Pneumococcal conjugate PCV 13 6 completed Belkys [place] [facility] 01/06/2024 16:09:39 zoster live 5 completed Belkys [place] [facility] 01/06/2024 16:09:39 Influenza, high-dose, trivalent, PF 7 completed Belkys [place] [facility] 01/06/2024 16:09:39 Influenza, high-dose, trivalent, PF 9 completed Bel[place]ys [place] [facility] 01/06/2024 16:09:39 Influenza, high-dose, trivalent, PF 9 completed Belkys [place] [facility] 01/06/2024 16:09:39 Influenza, high-dose, trivalent, PF 6 completed Belkys rizo, [place] - [facility] 01/06/2024 16:09:39 Influenza, high-dose, trivalent, PF 4 completed Katlyn Briseno MD Attn: Accounting,[address] [facility], [place], [address], [facility] 04/26/2024 14:18:36 Past Encounters Encounter ID Performer Location Encounter Start Date Encounter Closed Date Diagnosis/Indication Diagnosis SNOMED-CT Code Diagnosis ICD10 Code [id number] MD Shaka Daniels (Adult Med) [address] [place] [address] 10/08/2023 10:47:27 10/08/2023 12:21:22 Essential hypertension 69440321 I10 Hyperlipidemia 44312160 E78.5 Hypothyroidism 09939412 E03.9 Neuroendocrine tumor 255 784046 D3A.8 Anxiety 65821607 F41.9 [id number] MD Shaka Daniels (Adult Med) [address] [place] [address] 01/07/2024 09:59:02 01/07/2024 10:55:35 Essential hypertension 43057309 I10 Hypothyroidism 64953739 E03.9 Anxiety 13009529 F41.9 Obesity 580826967 E66.8 [id number] MD Shaka Daniels (Adult Med) [address] [place] [address] 04/08/2024 10:56:47 04/08/2024 12:00:54 Overweight 676673690 E66.3 Administra tion of influenza vaccine 63139642 Z23 Essential hypertension 30747503 I10 Hyperlipidemia 67432268 E78.5 Hypothyroidism 60882218 E03.9 Anxiety 74971567 F41.9 [id number] MD Shaka Daniels (Adult Med) [address] [place] [address] 0 04/29/2024 09:35:24 04/29/2024 10:43:26 Adult health examination 979856811 Z00.00 Postmenopausal state 764 19428 Z78.0 [id number] MD Shaka Daniels (Adult Med) [address] [place] [address] 05/15/2024 11:10:01 05/15/2024 12:40:02 Body mass index 25-29 - overweight 660163258 Z68.29 Overweight 031356685 E66 .3 Essential hypertension 15224120 I10 Hyperlipidemia 68392384 E78.5 Hypothyroidism 57238255 E03.9 Vitamin D deficiency 347 21631 E55.9 Anxiety 24762897 F41.9 Neuroendoc rine carcinoma 975367377 C7A.8 Health Concerns Section Related Observation LastModified by Organization Detai ls LastModified Time None Recorded Concern Status LastModified by Organization Details LastModified Time None Recorded Advance Directives Directive N: working on Payers Encounter Date Sequence Insurance Name Policy Number Policy Salter Covered Member ID Salter Member ID Guarantor Name 10/08/2023 2 [employer] - OPTIONS [place] [id number] [place] 10/08/2023 1 [place] - [place] [id number] [place] 01/07/2024 2 [employer] - OPTIONS [place] [id number] [place] 01/07/2024 1 [place] Viv[place] [id number] La Vivod 04/08/2024 2 [employer] - OPTIONS [place] [id number] [place] Vivod 04/08/2024 1 [place] M Viv[place] [id number] La Vivod 04/29/2024 2 [employer] - OPTIONS [place] [id number] [place] 04/29/2024 1 [place] M Viv[place] [id number] La Vivod 05/15/2024 2 [employer] - OPTIONS [place] Vivod [id number] [place]od 05/15/2024 1 [place] M Vivod [id number] La Viv[place] Notes Date Note Type Note Provider Name and Address Organization Details Recorded Time 10/08/2023 text/html 72-year-old with a history of hypertension hyperlipidemia hypothyroidism neuroendocrine tumor anxiety has an ostomy still under treatment and has fluctuating blood pressures Katlyn Briseno MD Attn: Accounting,[address] , [place], [address], [facility] - [facility] 10/13/2023 15:34:10 01/07/2024 text/html she is here for follow up for medical problems hypothyroid no heat or cold intolerance. Hypertension no headache or dizziness. Anxiety it is definitely worse than it has been her 's meds and she is more bad days than good but no SI or HI. She has had some problems with weight she continues to follow up for her neuroendocrine GI tumor at [facility] Katlyn Briseno MD Attn: Accounting,[address] , [place], [address], [facility] - [facility] 01/07/2024 14:21:04 04/08/2024 text/html hypertension blo od pressure 122/66 [...] chemotherapy from Oncology for her neuroendocrine tumor Katlyn Briseno MD Attn: Accounting,[address] [facility], [place], [address], [facility] - [facility] 04/26/2024 14:21:19 04/29/2024 text/html MAW 2Reported bypatient.Diet and Nutrition:healthy diet Fracture Risk:no sudden unexplained fractures;history of fractures Concentration and Memory:no decreased concentrating ability; no memory lapses or loss; does not forget words Speech/Motor difficulties:no speech difficulties; no difficulty expressing formulated concepts; no difficulty with fine manipulative tasks; no difficulty writing/copying; no slowed reaction time; does not knock things over when trying to pick them up Hearing:loss of hearing: in both ears; wears hearing aids Vision:worse both distance and near(glasses) Activities of Daily Living:able to bathe with limited or no assistance; able to contol urination and bowels; able to dress with limited or no assistance; able to feed self with limited or no assistance; able to get out of chair or bed with limited or no assistance; able to groom with limited or no assistance; able to toilet with limited or no assistance Instrumental Activities of Daily Living:able to do house work with limited or no assistance; able to grocery shop with limited or no assistance; able to manage medications with limited or no assistance; able to manage money with limited or no assistance; able to prepare meals with limited or no assistance; able to use the phone with limited or no assistance Falls Risk Assessment:no frequent falls while walking; no fall in the past year; no fall since last visit; no dizziness/vertigo Home Safety:no unsafe yolis hazzards; no unsafe stairs; working smoke/CO detectors; practicing 'safer sex'; has hand bars in the bathroom/shower; good lighting in the home;fire arms Katlyn Briseno MD Attn: Accounting,[address] [place], [address], [facility] 05/19/2024 22:19:21 05/15/2024 text/html 1. Her anxiety i s a little bit high she was apparently told that her cancer is progressing on therapy. This is caused her great concern. Hyperlipidemia dietary indiscretions abound. Hypothyroid no heat or cold intolerance low vitamin-D level needs to be checked dyslipidemia she is taking the simvastatin Katlyn Briseno MD Attn: Accounting,[address] [place], [address], [facility] 05/16/2024 15:54:53 OBGyn Episode No OBEpisode recorded.
--- OUTSIDE RECORDS SUMMARY | 2024-06-25 22:01 | XMS_ITS | Continuity of Care Document ---
Author Organization [facility] Shaka ALONZO (Adult Med) Address [facility] [place] [address] Care Team Providers Care Electronic Security Specialist Name Role Phone KATLYN BRISENO Primary Care Provider Assessment Encounter Date Assessment Date Assessment LastModified by Organization Details LastModified Time 04/29/2024 04/29/2024 health risk assessments discussed immunizations and screenings ordered where appropriate and patient agreeable all questions answered follow up at her regularly scheduled [email or web address] Not available 05/19/2024 22:19:09 Plan of Treatment Reminders Order Date Submit Date Provider Last Modified By Organization Details Last Modified Time Details Appointments ANY 15 2024 09:15A M Katlyn Briseno MD Not available Not available Not available Lab None recorded . Referral None recorded . Procedures None recorded . Surgeries None recorded . Imaging bone density 2023 024 [email or web address] [facility] Radiology Scheduling, [address] [place] [address], [address], 06/18/2024 16:44:13 Medication Orders None recorded . Patient TargetsNo targets recorded. Patient Instructions Encounter Date Encounter Id Patient Instructions Last Modified By Organization Details Last Modified Time 04/29/2024 [id number] Medicare Well[facility] Preventive Checklist [email or web address] Not available 04/29/2024 11:43:36 Reason for Referral None Reported. Results Created Date Observation Date Name Description Value Unit Range Abnormal Flag Note LastModifiedBy Organization Detail LastModifiedTime 06/21/2006/21/2024 CT, brain , w/wo contr ast No observ ation record ed. [facility] [address] [facility], [place], [address], 06/22/2024 11:20:04 Result Notes None recorded. Problems Name Problem SNOMED Code Status Onset Date Resolution Date Notes Provider Name and Address Organization Details Recorded Time Essential hypertension 31551296 Active 2023 Katlyn Briseno MD Attn: Jannet bains,[address] [facility], [place], [address], [place] - [facility] 4 15:31:28 Hyperlipidemia 37797944 Active 2023 Katlyn Briseno MD Attn: Jannet bains,[address] [facility], [place], [address], [place] [facility] 4 15:31:29 Hypothyroidism 30886965 Active 2023 Katlyn Briseno MD Attn: Jannet bains,[address] [facility], [place], [address], [place] [facility] 4 15:31:35 Neuroendocrine tumor 387830019 Active 2023 Katlyn Briseno MD Attn: Jannet bains,[address] [facility], [place], [address], [place] [facility] 4 15:31:36 Anxiety 66103597 Active 2023 Katlyn Briseno MD Attn: Jannet bains,[address] [facility], [place], [address], [place] [facility] 4 15:31:40 Vitamin D deficiency 84145286 Active 2023 Jerman Metz [place], [place] [facility] 12:42:00 Problem Notes None recorded. Procedures Surgical History Date Name Laterality Status Provider Name and Address Organization Details Recorded Time Appendectomy completed IRIS Quan - [facility] 10/08/2023 11:13:30 Cholecystectomy completed IRIS Quan - [facility] 10/08/2023 11:13:37 Gastrointestinal Surgery completed IRIS Quan - [facility] 10/08/2023 11:13:42 Joint Replacement completed IRIS Guevara - [facility] 10/08/2023 11:13:50 Tonsillectomy completed IRIS Quan - [facility] 10/08/2023 11:13:58 Knee Surgery completed IRIS Quan - [facility] 10/08/2023 11:14:04 Dilation and Curettage completed Kim Roque MA [facility] 10/08/2023 11:14:10 Total hysterectomy completed Demetrius Roque MA [facility] 10/08/2023 11:14:15 Imaging Results None recorded. Procedure Notes None recorded. Medical Equipment None Reported. Allergies Allergen ID Allergen Name Allergen Category Reaction Reaction Severity Criticality Documentation Date Start Date Code Code System Note Provider Name and Address Organization Details Recorded Time 16880108 Vytorin medicatio n Not available Not available Not available 10/08/2023 doesn 't remem cora Belkys [facility], [facility] 4 09:52:04 015138 Altace medicatio n cough Not available Not available 10/08/2023 43043 8 RxNorm Kim MyaIRIS darrius, [facility] 4 11:12:56 164570 morphine medicatio n rash Not available Not available 10/08/2023 7052 RxNorm Kim Roque IRIS rizo, [facility] 4 11:13:07 Medications Name Sig Start Date [...] bromide 42 mcg (0.06 %) nasal spray [place] 1 spray twice a day by nasal [...] Updated DateTime 4 160.02 cm 29.3 kg/m2 23033.5 4 g 89 /min 99 % 99 % 128 mm[Hg] 64 mm[Hg] Sonia Sparks MA [facility] 4 09:44:47 Date Recorded Body height Body mass index (BMI) Body weight Heart rate Oxygen saturation Oxygen saturation in Arterial blood by Pulse oximetry Systolic blood pressure Diastolic blood pressure Provider Name and Address Organization Details Last Updated DateTime 4 160.02 cm 29.6 kg/m2 51210.2 9 g 85 /min 95 % 95 % 140 mm[Hg] 70 mm[Hg] Mag Bangura MA [facility] 4 11:32:33 Social History Question Answer Notes LastModified by Organizat ion Details LastModified Time Tobacco Smoking Status Never Smoker Kim Roque [place] null, [place] - [facility] 10/08/2023 11:15:25 Do You Have An Advance [...] Or The Highest Degree You Have Received? [id number] Information not available 04/29/2024 Are There Any Guns Present In Your Home? Yes Information not available 04/29/2024 In The Past 7 Days, How Many Days Did You Exercise? 0 Information not available 04/29/2024 In The Past 7 Days, How Much Pain Have You [place]? None Information not available 04/29/2024 In General, [...] Past 7 Days, How Often Have You [place] Sleepy In The Daytime? Usually Information not [...] Anxious, Or Unable To Sleep At Night)? [id number] Information not available 01/07/2024 Do You Use [...] Skin Problems N Anemia N Heart Attack ([place]) N Anxiety Disorder N Diabetes N Muscle, [...] or 50 mcg/0.25mL dose 1 completed Belkys rizo [place] - [facility] 01/06/2024 16:09:39 COVID-19, mRNA, LNP-S, PF, 100 mcg/0.5mL dose or 50 mcg/0.25mL dose 1 completed Belkys rizo [place] - [facility] 01/06/2024 16:09:39 COVID-19, mRNA, LNP-S, PF, 100 mcg/0.5mL dose or 50 mcg/0.25mL dose 1 completed Belkys rizo [place] - [facility] 01/06/2024 16:09:39 COVID-19, mRNA, LNP-S, PF, 100 mcg/0.5mL dose or 50 mcg/0.25mL dose 1 completed Belkys rizo [place] - [facility] 01/06/2024 16:09:39 pneumococcal polysaccharide PPV23 5 completed Belkys rizo [place] - [facility] 01/06/2024 16:09:39 influenza, unspecified formulation 5 completed Belkys rizo [place] - [facility] 01/06/2024 16:09:39 influenza, unspecified formulation 4 completed Belkys [place] [facility] 01/06/2024 16:09:39 influenza, unspecified formulation 8 completed [place] [facility] 01/06/2024 16:09:39 Tdap 1 completed [place] [facility] 01/06/2024 16:09:39 Pneumococcal conjugate PCV 13 1 completed [place] [facility] 01/06/2024 16:09:39 Pneumococcal conjugate PCV 13 6 completed [place] [facility] 01/06/2024 16:09:39 zoster live 5 completed [place] [facility] 01/06/2024 16:09:39 Influenza, high-dose, trivalent, PF 7 completed [place] [facility] 01/06/2024 16:09:39 Influenza, high-dose, trivalent, PF 9 completed [place] [facility] 01/06/2024 16:09:39 Influenza, high-dose, trivalent, PF 9 completed [place]ys [place] [facility] 01/06/2024 16:09:39 Influenza, high-dose, trivalent, PF 6 completed [place] [facility] 01/06/2024 16:09:39 Influenza, high-dose, trivalent, PF 4 completed Katlyn Briseno MD Attn: Accounting,[address] [place], [address], [place] [facility] 04/26/2024 14:18:36 Past Encounters Encounter ID Performer Location Encounter Start Date Encounter Closed Date Diagnosis/Indication Diagnosis SNOMED-CT Code Diagnosis ICD10 Code [id number] Katlyn Briseno MD [facility] (Adult Med) [address] [place] [address] 04/08/2024 10:56:47 04/08/2024 12:00:54 Overweight 364439769 E66.3 Administra tion of influenza vaccine 19856563 Z23 Essential hypertension 90641611 I10 Hyperlipidemia 62750703 E78.5 Hypothyroidism 56725192 E03.9 Anxiety 15326222 F41.9 [id number] Katlyn Briseno MD [facility] (Adult Med) [address] [place] [address] 04/29/2024 09:35:24 04/29/2024 10:43:26 Adult health examination 060882634 Z00.00 Postmenopausal state 764 24241 Z78.0 Health Concerns Section Related Observation LastModified by Organization Detai ls LastModified Time None Recorded Concern Status LastModified by Organization Details LastModified Time None Recorded Payers Encounter Date Sequence Insurance Name Policy Number Policy Salter Covered Member ID Salter Member ID Guarantor Name 04/29/2024 2 [employer] - OPTIONS [place] [id number] [place] 04/29/2024 1 [facility] [place] M Vivod [id number] La Vivod Notes Date Note Type Note Provider Name and Address Organization Details Recorded Time 04/29/2024 text/html MAW 2Reported bypatient.Diet and Nutrition:healthy [...] arms Katlyn Briseno MD Attn: Accounting,[address] [place], [address], [facility] [place] 05/19/2024 22:19:21 05/15/2024 text/html 1. Her anxiety i s a little bit high she was apparently told that her cancer is progressing on therapy. This is caused her great concern. Hyperlipidemia dietary indiscretions abound. Hypothyroid no heat or cold intolerance low vitamin-D level needs to be checked dyslipidemia she is taking the simvastatin Katlyn Briseno MD Attn: Accounting,[address] [place], [address], [facility], [place] 05/16/2024 15:54:53 OBGyn Episode No OBEpisode recorded.
--- OUTSIDE RECORDS SUMMARY | 2024-06-25 22:01 | XMS_ITS | Patient Health Summary ---
Author Organization [facility] Address [address] [place] [address] Care Team Providers Care Patent Clerk Name Role Phone Julio César Briseno MD Primary Care Provider [phone] Note from [facility],non-owned Affiliates and Associated Physician Practices is amultiple site organization consisting of ambulatory clinics and hospital sitesin [place], [place] and [place]. This disclosure is being madepursuant to the Care Everywhere program and may not contain all information available regarding this patient. Last updated 18.[facility] Allergies * Ramipril(Other) -Low Criticality * Vytorin(Other) -Low Criticality Medications * Be aware that medications may not be up to date on this document. Alwaysverify current medications with the patient. * DULoxetine (CYMBALTA) 30 MG capsule(Started 11/21/2016) Take 30 mg by mouth DAILY. 3 refills left * octreotide (SANDOSTATIN LAR DEPOT) injection(Started 07/04/2016) Inject 30 mg into muscle ONCE. * Ascorbic Acid (VITAMIN C) 500 MG(Started 07/04/2016) Take 1 tablet by mouth DAILY. * Cholecalciferol (VITAMIN D PO) Take 5,000 tablets by mouth as directed 3 tabs once daily * SIMVASTATIN PO Take 20 mg by mouth * Cholestyramine Use 1 tablet as needed * olmesartan-hydroCHLOROthiazide (BENICAR HCT) 40-25 MG tablet(Started 02/07/2018) Take 1 tablet by mouth once daily 3 refills left * trospium (SANCTURA) 20 MG tablet(Started 06/15/2018) Take 1 tablet by mouth 2 times daily 11 refills remaining * mirabegron ER 24hr (MYRBETRIQ) 50 MG tablet(Started 10/16/2018) Take 1 tablet by mouth once daily 5 refills remaining Active Problems Problem Noted Date Diagnosed Date Mixed incontinence 10/23/2017 Personal history of diseases of skin or subcutan eous tissue 07/05/2017 H/O actinic keratosis 07/05/2017 Family history of malignant neoplasm of other organs or systems 06/29/2015 Family history of melanoma 06/29/2015 Immunizations * INFLUENZA(Given 06/11/2018) Social History Tobacco Use Types Packs/Day Years Used Date Smoking Tobacco: Never Smokeless Tobacco: Never Alcohol Use Standard Drinks/Week Comments Yes 0 (1 standard drink = 0.6 oz pur e alcohol) Sex and Gender Information Value Date Recorded Sex Assigned at Not on file Gender Identity Not on file Sexual Orientation Not on file Last Filed Vital Signs Vital Sign Reading Time Taken Comments Blood Pressure 138/80 08/13/2018 11:35 AM DIGITAL PROJECT MANAGER Pulse - - Temperature - - Respiratory Rate - - Oxygen Saturation - - Inhaled Oxygen Concentration - - Weight 83.9 kg (185 lb) 08/13/2018 11:35 AM DIGITAL PROJECT MANAGER Height 160 cm (5' 3 ) 08/13/2018 11:35 AM DIGITAL PROJECT MANAGER Body Mass Index 32.77 08/13/2018 11:35 AM DIGITAL PROJECT MANAGER Procedures * NC DESTROY PREMALIG LESION, 1ST LESION(Performed 07/09/2018) Performed for Actinic keratosis, Porokeratosis * NC DESTROY PREMALIG LESION, 2-14(Performed 07/09/2018) Performed for Actinic keratosis, Porokeratosis * NC ENDOSCOPIC INJECTION/IMPLANT(Performed 05/15/2018) Performed for DEVEN (stress urinary incontinence, female) * NC ENDOSCOPIC INJECTION/IMPLANT(Performed 02/22/2018) Performed for DEVEN (stress urinary incontinence, female) * NC SYNTHETIC IMPLNT URINARY 1ML(Performed 02/22/2018) Performed for DEVEN (stress urinary incontinence, female) * NC COMPLEX CYSTOMETROGRAM(Performed 02/22/2018) Performed for Mixed incontinence * NC URINE FLOW MEASUREMENT(Performed 02/22/2018) Performed for Mixed incontinence * DERMATOPATHOLOGY(Performed 09/11/2017) * PATHOLOGY/GENETICS HISTORICAL-ONBASE(Performed 09/11/2017) * DERMATOPATHOLOGY(Performed 12/12/2016) * DERMATOPATHOLOGY(Performed 07/04/2016) * PATHOLOGY/GENETICS HISTORICAL-ONBASE(Performed 07/04/2016) Results * NC DESTROY PREMALIG LESION, 2-14, NC DESTROY PREMALIG LESION, 1ST LESION (07/09/2018 11:04 AM DIGITAL PROJECT MANAGER) Narrative Jessica Nazario MD - 07/09/2018 11:04 AM DIGITAL PROJECT MANAGER Ck Claros MD ? 07/09/2018 11:01 AM Diagnosis and treatment options discussed, addressing the benefit and risks of each. Pt wish to proceed with cryotherapy. Liquid Nitrogen was applied to 6 lesions (1 porokeratosis on R latera thigh, 6 AKs: 2 on R adventism, 1 on R upper eyelid, 2 on nasal bridge) for 5-7s each x 1 cycle. Wound care reviewed. ?? Jessica Nazario MD PROCEDURE/MINOR SOLIZ RGICAL ORDERABLES * NC ENDOSCOPIC INJECTION/IMPLANT (05/15/2018 12:25 PM DIGITAL PROJECT MANAGER) Narrative Anne-Marie Dobson MD - 05/15/2018 12:25 PM DIGITAL PROJECT MANAGER Anne-Marie Dobson MD ? 05/15/2018 12:25 PM Periurethral Bulking Procedure Note Pre-Operative Diagnosis: ??Stress incontinence (N39.3) ?ISD (N36.42) - leak point pressure of <100 ?Hypomobility of urethra Post-Operative Diagnosis: ??same Indications: Intrinsic sphincteric deficiency. Procedure Details: The patient had been seen and diagnosed with intrinsic sphincteric deficiency. Her options were discussed, and she was offered periurethral bulking. Her risks, benefits, and alternatives were discussed with emphasis on the possibility of failure, infection and difficulty urinating. She had urodynamic findings consistent with intrinsic sphincteric deficiency with a valsalva leak point pressure (VLPP) of less than or equal to 100 cm of water. If offered contingent, she had been allergy tested with contingent at least 30 days prior to the procedure and did not have an allergic reaction. The patient was placed in a supine position in the procedure chair in the urodynamic suite. Her urethra was prepped with Betadine unless she was allergic to topical iodine. Her bladder was then emptied of the residual urine and tested for an infection via dipstick. If negative, the procedure continued. A 15 degree rigid cystoscopy using the Storz injection system was used with a non-coring disposable needle to apply the material. It was placed in 2 points, at 4,6 o'clock. There was good hemostasis. The total amount of material used was 1.7 cc of [id number]. The lot number was [id number]. She tolerated the procedure and was allowed to void in the bathroom. She was able to do so easily and was discharged from the office with detailed instructions. Condition: Good Plan: The patient was advised to void every 2 hours at least in the next 6 hours. She was asked to call if unable to void, has pain, has a fever or with any concerns. She will call in 1 week and follow up as needed. Rpt injectionsno more than 1 month apart. Antibiotic prophylaxis given Anne-Marie Dobson MD PROCEDURE/MINOR SURG ICAL ORDERABLES * NC SYNTHETIC IMPLNT URINARY 1ML, NC ENDOSCOPIC INJECTION/IMPLANT (02/22/2018 7:36 PM CDT) Narrative Anne-Marie Dobson MD - 02/22/2018 7:36 PM CDT Anne-Marie Dobson MD ? 02/22/2018 ??7:36 PM Periurethral Bulking Procedure Note Pre-Operative Diagnosis: ??Stress incontinence (N39.3) ?ISD (N36.42) - leak point pressure of 65 ?Hypomobility of urethra Post-Operative Diagnosis: ??same Indications: Intrinsic sphincteric deficiency. Procedure Details: The patient had been seen and diagnosed with intrinsic sphincteric deficiency. Her options were discussed, and she was offered periurethral bulking. Her risks, benefits, and alternatives were discussed with emphasis on the possibility of failure, infection and difficulty urinating. She had urodynamic findings consistent with intrinsic sphincteric deficiency with a valsalva leak point pressure (VLPP) of less than or equal to 100 cm of water. If offered contingent, she had been allergy tested with contingent at least 30 days prior to the procedure and did not have an allergic reaction. The patient was placed in a supine position in the procedure chair in the urodynamic suite. Her urethra was prepped with Betadine unless she was allergic to topical iodine. Her bladder was then emptied of the residual urine and tested for an infection via dipstick. If negative, the procedure continued. A 15 degree rigid cystoscopy using the Espinela injection system was used with a non-coring disposable needle to apply the material. It was placed in 2 points, at 4,6 o'clock. There was good hemostasis. The total amount of material used was 1.7 cc of COAPTITE:[id number]. The lot number was [id number]. She tolerated the procedure and was allowed to void in the bathroom. She was able to do so easily and was discharged from the office with detailed instructions. Condition: Good Plan: The patient was advised to void every 2 hours at least in the next 6 hours. She was asked to call if unable to void, has pain, has a fever or with any concerns. She will call in 1 week and follow up as needed. Rpt injectionsno more than 1 month apart. Antibiotic prophylaxis given - gave her a full week as her bladder had erythema as did her urethra Anne-Marie Dobson MD PROCEDURE/MINOR SURG ICAL ORDERABLES * NC URINE FLOW MEASUREMENT, NC COMPLEX CYSTOMETROGRAM (02/22/2018 7:34 PM CDT) Narrative Anne-Marie Dobson MD - 02/22/2018 7:34 PM CDT Anne-Marie Dobson MD ? 02/22/2018 ??7:34 PM Multichannel Urodynamic Testing - Procedure Note Pre-Operative Diagnosis: stress incontinence and urge incontinence Post-Operative Diagnosis: urodynamic stress urinary incontinence and detrusor instability Indications: Multichannel urodynamic testing is being performed to fully evaluate the patient's voiding dysfunction. The risks, benefits and alternatives have been discussed with emphasis on discomfort and urinary tract infections. Procedure Details: The patient's urethral meatus was cleaned with Betadine (used if not allergic to topical iodine, otherwise hibiclens was used). A 7 Fr. Single sensor air-charged catheter was place into the vagina or into the rectum if the pelvic prolapse required restitution for adequate testing. A 7 Fr. Dual sensor air-charged catheter was inserted into the urethra. During testing, the patient's prolapse was reduced with either procto-swabs, or digitally. Cystometrogram: The bladder was filled with room temperature water at a rate of 100 cc per minute. The patient tolerated this and she was found to have: First sensation (S1) at 141 cc. Sensation of fullness at 141 cc. Maximal cystometric capacity of 341 cc. She does have normal bladder compliance. She does not have loss of urine with a rise in detrusor pressure. But did have rise in detrusor pressure. Valsalva leak point pressure (VLPP): VLPP at 150 cc: 65 VLPP at [facility] : ?? Urethral pressure profilometry (UPP): Maximal urethral closure pressure (MUCP): nd Leakage amount: large and at [facility] Voiding study (VS): Volume voided: 226 Maximal flow rate: 29 Valsalva void: yes Assessment and Plan: Mixed incontinence with both stress and detrusor overactivity. She is on OAB med and that has helped but still leaking. Coaptite done today and clearly explained to pt and her daughter the mixed nature and correcting the deven may also help her her urge in 50% cases. Anne-Marie Dobson MD PROCEDURE/MINOR SURG ICAL ORDERABLES * PATHOLOGY/GENETICS HISTORICAL-ONBASE (09/11/2017) Only the most recent of2 resultswithin the time period is included. 09/11/2017 Historical Provider LAB - CHEMISTRY O RDERABLES [address] * PATHOLOGY TISSUE FOR DERMATOLOGY (09/11/2017 12:00 AM DIGITAL PROJECT MANAGER) Only the most recent of3 resultswithin the time period is included. Result CASE: [id number] PATIENT: LA CHUNG PATHOLOGIC DIAGNOSIS: Right base of neck: EPIDERMOID CYST CLINICAL DATA: Cyst-e. GROSS DESCRIPTION: Received is one formalin filled container labeled with the patients name and designated right base of neck. The specimen consists of a [id number] excision. The specimen is bisected lengthwise and submitted in 1 cassette. Jar 0. MICROSCOPIC DESCRIPTION: Within the dermis, there is a space lined by epithelium that resembles normal epidermis and the infundibular portion of the hair follicle. Electronically signed out by Neema Saini M.D., PhD. 09/13/2017 12:06:20PM DERMATOPATHOLOGY LABORATORY Comment: Performed at: Dermatopathology Laboratory [facility] - Department of Dermatology [address], [address] [place] [address] Phone number: [phone] FAX: [phone] Skin (tissue) specimen (specimen) 09/11/2017 09/12/2017 [facility] DERMATOPATHOLOGY LABORATORY - 09/13/2017 12:06 PM DIGITAL PROJECT MANAGER How many specimens?->1 Specimen A: Type->Excision ?Site->right base of neck History->cyst, previously inflamed ?Impression->cyst-e ?Check Margins:->No ?Prior Biopsy->No Jessica Nazario MD LAB - PATHOLOGY/CY TOLOGY ORDERABLES DERMATOPATHOLOGY LABORATORY [facility] - Department of Dermatology [address] [place] [address] Floor Lab [address] [phone] Care Teams Patent Clerk Relationship Specialty Start Date End Date Julio César Briseno MD PCP - General 10/23/17
--- OUTSIDE RECORDS SUMMARY | 2024-06-25 22:01 | XMS_ITS | Clinical Summary ---
Author Organization [facility] Address [address] [place] [address] Care Team Providers Care Carpentry Foreman Name Role Phone Julio César Briseno MD Primary Care Provider [phone] Source Comments [email or web address],non-owned Affiliates and Associated Physician Practices is amultiple site organization consisting of ambulatory clinics and hospital sitesin [place], [place] and [place]. This disclosure is being madepursuant to the Care Everywhere program and may not contain all information available regarding this patient. Last updated [email or web address] Allergies Active Allergy Reactions Criticality Noted Date Comments Ramipril Other Low 01/11/2012 cough Vytorin Other Low 01/11/2012 Muscle weakness Medications * Be aware that medications may not be up to date on this document. Alwaysverify current medications with the patient. Medication Sig Dispensed Refills Start Date End Date Status DULoxetine (CYMBALTA) 30 MG capsule Take 30 mg by mouth DAILY. 3 11/21/2016 Active octreotide (SANDOSTATIN LAR DEPOT) injection Inject 30 mg into muscle ONCE. 07/04/2016 Active Ascorbic Acid (VITAMIN C) 500 MG Take 1 tablet by mouth DAILY. 07/04/2016 Active Cholecalciferol (VITAMIN D PO) Take 5,000 tablets by mouth as directed 3 tabs once daily Active SIMVASTATIN PO Take 20 mg by mouth Active Cholestyramine Use 1 tablet as needed Active olmesartan-hydroCHLO ROthiazide (BENICAR HCT) 40-25 MG tablet Take 1 tablet by mouth once daily 3 02/07/2018 Active trospium (SANCTURA) 20 MG tablet Take 1 tablet by mouth 2 times daily 60 tablet 11 06/15/2018 Active Additional Information Patient not taking.Reported on 08/13/2018 mirabegron ER 24hr (MYRBETRIQ) 50 MG tabletIndications:Mi xed incontinence Take 1 tablet by mouth once daily 30 tablet 5 10/16/2018 Active Active Problems Problem Noted Date Diagnosed Date Mixed incontinence 10/23/2017 Personal history of diseases of skin or subcutan eous tissue 07/05/2017 H/O actinic keratosis 07/05/2017 Family history of malignant neoplasm of other organs or systems 06/29/2015 Family history of melanoma 06/29/2015 Immunizations Name Administration Dates Next Due INFLUENZA 06/11/2018 Family History Medical History Relation Name Comments Cancer - Skin, Melanoma Other daughter Stat us: Alive Cancer - Skin, Non Melanoma Sister 1 Status: Alive Cancer - Breast Sister 2 Allergy (Severe) Neg Hx Asthma Neg Hx CVA Neg Hx Cancer Neg Hx Cancer - Other Neg Hx Eczema Neg Hx Hemophilia Neg Hx Psoriasis Neg Hx Rashes/Skin Problems Neg Hx Relation Name Status Comments Other daughter Sister 1 Sister 2 Social History Tobacco Use Types Packs/Day Years [...] Comments Blood Pressure 138/80 08/13/2018 11:35 AM DRAFTER Pulse - - Temperature - - Respiratory Rate - - Oxygen Saturation - - Inhaled Oxygen Concentration - - Weight 83.9 kg (185 lb) 08/13/2018 11:35 AM DRAFTER Height 160 cm (5' 3 ) 08/13/2018 11:35 AM DRAFTER Body Mass Index 32.77 08/13/2018 11:35 AM DRAFTER Plan of Treatment Health Maintenance Due Date Last Done Comments BONE DENSITY TESTING 1950 COLOGUARD (AGES 45-75) - COL ON CA SCREENING 1948 COLON MONITORING 1948 COLONOSCOPY - COLON CA SCREENING 1948 CT COLONOGRAPHY - COLON CA SCREENING 1950 Colorectal Cancer Screening 1948 FIT - COLON CA SCREENING 1948 FLEX SIG - COLON CA SCREENING 1950 MAMMOGRAM 1950 MEDICARE AWV ? 12 MONTHS 1948 HEPATITIS C SCREENING 11/01/1966 DTAP/TDAP/TD VACCINES (1 - Tdap) 11/06/1967 ZOSTER VACCINE (1 of 2) 1998 PNEUMOCOCCAL VACCINE 65+ (1 of 1 - PCV) 2013 SCREENING FOR DIABETES 10/23/2017 DEPRESSION SCREENING 07/08/2023 Respiratory Syncytial Virus (RSV) Vaccine Pt: or over 60 yrs (1 - 1-dose 75+ series) 11/06/2023 COVID-19 VACCINE (1 - 2023-2 5 season) 2024 INFLUENZA VACCINE (#1) 2024 06/11/2018 HEPATITIS B VACCINE Aged Out No longe r eligible based on patient's age to complete this topic HIB VACCINE Aged Out No longer eligi ble based on patient's age to complete this topic HPV VACCINE Aged Out No longer eligi ble based on patient's age to complete this topic MENINGOCOCCAL VACCINE Aged Out No rosi padmaja eligible based on patient's age to complete this topic Care Teams Carpentry Foreman Relationship Specialty Start Date End Date Julio César Briseno MD PCP - General 10/23/17
--- OUTSIDE RECORDS SUMMARY | 2024-06-25 22:01 | XMS_ITS | Encounter Summary ---
Author Organization [facility] Address [address] [place] [address] Care Team Providers Care Associate Professor Of Chemistry Name Role Phone Julio César Briseno MD Primary Care Provider [phone] Reason for Visit * Reason Onset Date Comments Returned Call 09/17/2018 Encounter Details Date Type Department Care Team (Late st Contact Info) Description 09/17/2018 Telephone [facility] [address] [place] [address] [phone] Julio César Briseno MD [address] [place] [phone] Returned Call Social History Tobacco Use Types Packs/Day Years [...] Encounter - Luciano Stanley RN - 09/17/2018 4:40 PM CDT Returned call to pt - see tc from yesterday. This call closed. * Telephone Encounter - Francia Marlen - 09/17/2018 4:31 PM CDT Pt called back stating that Luciano instructed her to call the office before 4:30 today. Pt would like a call back. Pt callback# [phone] documented in this encounter Plan of Treatment Not on file documented as of this encounter Visit Diagnoses Not on filedocumented in this encounter Care Teams Associate Professor Of Chemistry Relationship Specialty Start Date End Date Julio César Briseno MD PCP - General 10/23/17 documented as of this encounter
--- OUTSIDE RECORDS SUMMARY | 2024-06-25 22:01 | XMS_ITS | Referral Summary ---
Author Organization [facility] Address [address] [place] [address] Care Team Providers Care Riveting Machine Operator Tape Control Name Role Phone Julio éCsar Briseno MD Primary Care Provider [phone] Source Comments [facility],non-owned Affiliates and Associated Physician Practices is amultiple site organization consisting of ambulatory clinics and hospital sitesin [place], [place], [place] and [place]. This disclosure is being madepursuant to the Care Everywhere program and may not contain all information available regarding this patient. Last updated 18.[employer] Allergies Active Allergy Reactions Criticality Noted Date [...] Name Administration Dates Next Due INFLUENZA 06/11/2018 Social History Tobacco Use Types Packs/Day Years [...] Comments Blood Pressure 138/80 08/13/2018 11:35 AM BUSINESS INFORMATION CONSULTANT Pulse - - Temperature - - Respiratory Rate - - Oxygen Saturation - - Inhaled Oxygen Concentration - - Weight 83.9 kg (185 lb) 08/13/2018 11:35 AM BUSINESS INFORMATION CONSULTANT Height 160 cm (5' 3 ) 08/13/2018 11:35 AM BUSINESS INFORMATION CONSULTANT Body Mass Index 32.77 08/13/2018 11:35 AM BUSINESS INFORMATION CONSULTANT Plan of Treatment Not on file Care Teams Riveting Machine Operator Tape Control Relationship Specialty Start Date End Date Julio César Briseno MD PCP - General 10/23/17
--- OUTSIDE RECORDS SUMMARY | 2024-06-25 22:02 | XMS_ITS | Encounter Summary ---
Author Organization [facility] Address [address] [place] [address] Care Team Providers Care Business Services Clerk Name Role Phone Julio César Briseno MD Primary Care Provider [phone] Encounter Details Date Type Department Care Team (Latest Contact Info) Description 08/13/2018 11:30 AM MEDICAL CASE WORKER Procedure visit [facility] Obstetrics Gynecology and Women's Health [address] [place] [address] Anne-Marie Dobson MD [address] [place] [address] Mixed incontinence Social History Tobacco Use Types Packs/Day Years Used Date Smoking Tobacco: Never Smokeless Tobacco: Never Alcohol Use Standard Drinks/Week Comments Yes 0 (1 standard drink = 0.6 oz pur e alcohol) Sex and Gender Information Value Date Recorded Sex Assigned at Not on file Gender Identity Not on file Sexual Orientation Not on file documented as of this encounter Last Filed Vital Signs Vital Sign Reading Time Taken Comments Blood Pressure 138/80 08/13/2018 11:35 AM MEDICAL CASE WORKER Pulse - - Temperature - - Respiratory Rate - - Oxygen Saturation - - Inhaled Oxygen Concentration - - Weight 83.9 kg (185 lb) 08/13/2018 11:35 AM MEDICAL CASE WORKER Height 160 cm (5' 3 ) 08/13/2018 11:35 AM MEDICAL CASE WORKER Body Mass Index 32.77 08/13/2018 11:35 AM MEDICAL CASE WORKER documented in this encounter Patient Instructions * Patient Instructions* Anne-Marie Dobson MD - 08/13/2018 12:13 PM MEDICAL CASE WORKER Botox. I explained the procedure of injecting 100 units into the base of the bladder. Explained to the technique has changed in that we inject more the base and uses smaller dose but the risk of retention remains but is low at 7%. Success rates is 70-80%. Literature suggests's length of success at 6 months however I have had patients where it has lasted 10-12 months. It typical the does not startworking until approximately 2 weeks. People can get a flu like symptoms. I personally have not had any patients experienced this. She she is also at risk of UTI most likely secondary some decreased emptying function however this is an easily treatable complication. [email or web address] - for Interstim or sacral nerve implant. CAL CASE WORKER documented in this encounter Progress Notes * Anne-Marie Dobson MD - 08/13/2018 1:21 PM CST Ms. La Chung is a 67 y.o. female who has returned for a follow up visit for Coaptite. Last seen: 05/25 Had coaptite x 2 which seems to have helped her stress. Minor Juanis with cough and sneeze. On discussion with pt and her daughter her episodes are not making it to the bathroom especially atnight. When she is out during the day she has to go frequently but usually make it. The mirabegron has helped but still not making it right at the toilet.. Last night Had an episode where she thought she had made it and then all of a sudden looked down and the floor was saturated I spoke to the daughter and the patient at length. I explained to me that it sounds like her overactive bladder is predominant and not her stress incontinence. We talked about increasing her meds to 50 mg daily which would be appropriate and see how that does. If this does not work then we really at this stage of looking at tier 3 treatments which would be Botox or InterStim. I explained the Botox has to be done typically every 7-12 months. I explained the injection technique and that the risk of UTIs and retention. Then talked at length about the InterStim and affected his implantable device and she could never have an MRI. Also talked about the fact of the reoperation rate can be significant as it is a mechanical device. She would also have to be willing to use the device. She really couldn't decide what shewants to do so we have elected to increase her Mirabegron to 50 mg daily and she is to call me in 4weeks. I also gave her the number for the websites so they could get more information about the Botox and the InterStim and we will regroup. In the meantime I will see if the Botox will be covered as an in office procedure. The patient was counseled about the above. The total face to face encounter time was 40 minutes of which 25 minutes were spent in counseling. Her questions were answered to her satisfaction. Written instructions were provided. CAL CASE WORKER documented in this encounter Plan of Treatment Not on file documented as of this encounter Visit Diagnoses Diagnosis Mixed incontinence- Primary Mixed incontinence urge and stress (male)(female) documented in this encounter Care Teams Business Services Clerk Relationship Specialty Start Date End Date Julio César Briseno MD PCP - General 10/23/17 documented as of this encounter
--- OUTSIDE RECORDS SUMMARY | 2024-06-25 22:02 | XMS_ITS | Encounter Summary ---
Author Organization [facility] Address [address] [place] [address] Care Team Providers Care Wall Covering Installer Name Role Phone Julio César Briseno MD Primary Care Provider [phone] Reason for Visit * Reason Comments Follow-up FBSC- scattered spot s, spots on neck, left and right leg, back, face Encounter Details Date Type Department Care Team (Late st Contact Info) Description 07/09/2018 10:40 AM MANAGER TALENT Office Visit [facility] [address] [place] [phone] Jessica Nazario MD [address] [place] [phone] Porokeratosis (Primary Dx); Bagley angioma; Family history of melanoma; Lentigines; Multiple benign nevi of upper extremity, lower extremity, and trunk; Actinic keratosis; Comedone; Seborrheic keratoses Social History Tobacco Use Types Packs/Day Years Used Date Smoking Tobacco: Never Smokeless Tobacco: Never Alcohol Use Standard Drinks/Week Comments Yes 0 (1 standard drink = 0.6 oz pur e alcohol) Sex and Gender Information Value Date Recorded Sex Assigned at Not on file Gender Identity Not on file Sexual Orientation Not on file documented as of this encounter Patient Instructions * Patient Instructions* Ck Claros MD - 07/09/2018 10:54 AM MANAGER TALENT It was a pleasure seeing you in clinic today. We will plan to follow-up with you in 1 year for fullbody skin exam. We frozen off a few spots on your skin today. Please follow the wound care instruction below. POST CRYOTHERAPY CARE Please avoid any trauma to the treated site. Redness and swelling may occur within minutes of thawing. A clear blister or a blood blister may appear on the skin in the treated area within 12 to 48 hours. If the blister is painful, you may drain the blister using a sterile pin. To sterilize the pin, hold it over the flame of a match or wipe the tip with an alcohol-soaked cotton ball. Poke a hole in the blister and drain thefluid. Do not remove the skin of the blister; this blister acts as a bandage for the area. After 24 hours, clean the areas twice a day with mild soap and water. Pat dry and apply petroleum jelly (plain vaseline) with a cotton swab. The petroleum jelly will help keep the area moist, help prevent a scab from forming, and less the chance of infection. If you wish, you may cover the area with a bandage. Do not apply any topical medications or medicated pads to open skin unless otherwise directed. Notify your physician if you have: ?? Yellowish/greenish discharge from the treated area ?? Increasing tenderness or pain ?? Warmth of the area and/or fever over 101 F SKIN CANCER PREVENTION: - We recommend DAILY sun protection with SPF 30 or above - Do monthly skin exams and examine your moles for any changes. - Alert us of any moles that are asymmetrical, have irregular borders, have more than one color, are larger than end of a pencil eraser, or has been changing over time. (These are the A-B-C-D-Es of Melanoma). - See below for sun screen recommendations. SUNSCREENS with UVA and UVB PROTECTION Sunlight consists of two types of light that can cause or worsen most skin problems: UVA (ultraviolet A) UVB (ultraviolet B) Brown spots, wrinkles Sunburn Aging Skin cancers Rosacea Tanning Less variation with seasons Strongest in summer All year round, All day strong Peak hours 10am to 2pm No rating system available Passes through glass and clouds Sunscreens that block both UVA and UVB light (broad spectrum) contain: ?? Zinc Oxide (should contain at least 4% zinc oxide) - preferred ingredient ?? Titanium Dioxide Tips/Suggestions ?? SPF of 30 or higher (SPF rates UVB protection) ?? Zinc Oxide or other UVA block such as Helioplex or Anthelios in product ?? Remember there is no safe UV light...so there is no such thing as a safe suntan. ?? Apply sunscreen daily (even in winter and on cloudy days) and reapply every 2 to 4 hours depending on activity. Approximately one ounce of sunscreen is necessary to adequately cover the entire body. Good brands include Vaibhav MAS, Skinmedica, Aveeno, Cetaphil, Cerave, Neutrogena, Vanicream and many others (at least SPF 30!). Our favorite brand is the one that you will wear! GER TALENT documented in this encounter Progress Notes * Jessica Nazario MD - 07/09/2018 10:42 AM CST I have seen and examined the patient with the resident and I agree with the findings and plan of care as documented by the resident. Date of Service: 07/09/2018 Jessica Nazario MD, PhD GER TALENT * Ck Claros MD - 07/09/2018 10:19 AM CST Chief Complaint Patient presents with ??? Follow-up FBSC- scattered spots, spots on neck, left and right leg, back, face HPI: La Chung a 67 y.o. female presents for skin exam. Last FBSE: 07/05/2017 Concerns: 1. Rel[place]ago rough spots on sun exposed areas. Ongoing for months. Irritates at times, no pain, no bleeding. Has had LN2 around surround area but not exactly the same location. Personal history of skin cancer: AKs Daughter with stage 3 melanoma PE: No acute distress. Mood clear/affect appropriate. Alert and oriented. Mucous membranes moist. Sclera anicteric. Full body skin exam was conducted to include the scalp, face, lips/teeth, lids/conjunctiva, ears, neck, chest, abdomen, back, groin/buttock, right and left hands and forearms, right and left leg and feet and was normal with the following exceptions: 1. 1 on L lateral thigh, 9 mm pink scaly papule with rim of collarette 2. On R oral commissure, 3 mm yellow papule with central pore 3. 2 on R rastafari, 1 on R upper eyelid, 2 on nasal bridge, slightly-red barely- visible thin macules with noble texture. ?? Scattered over trunk and extremities, lund to brown macules and papules none with markedly different appearance from the others unless otherwise noted. ?? Scattered over sun-exposed skin, irregular lund/light-brown macules none with markedly different appearance from the others unless otherwise noted. ?? Scattered over trunk and extremities, lund-brown waxy stuck on papules. ?? Scattered over trunk and extremities, round bright red papules A/P: La was seen today for follow-up. 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 Counseled patient on diagnosis, a/w sun exposure, pre-malignant nature w/ possible progression to SCC, and Tx options. Rec LN2 to prevent progression to SCC. ?? Discussed benefit, risks of LN2 Tx, vs. active surveillance. Pt wish to proceed. ?? LN2 applied to 6 lesions. See associated procedure note. Pt tolerated Tx well. Post-procedural blister and wound care instructions given. ?? Counseled on importance of daily sun protection (SPF 30+, UVA/UVB) and monthly self skin exams. Comedone - R oral commissure ?? Counseled pt on Dx, etiology, disease course, and Tx options. ?? After thorough discussion of risks/benefit and expectations, pt wish to proceed with the plan of: ?? Extraction of keratotic core performed Multiple benign nevi on trunk and extremities + Lentigines on sun-exposed skin ?? Explained benign nature, reassurance provided. ?? ABCDEs of melanoma was explained to the pt, advised pt on consistent sunscreen use (SPF > 30,UVA + UVB). Monthly self-exam, and avoid direct sunlight/tanning. Seborrheic keratoses + Bagley angiomas ?? Explained benign nature, reassurance provided. Family history of melanoma ?? Explained benign nature, reassurance provided. ?? ABCDEs of melanoma was explained to the pt, advised pt on consistent sunscreen use (SPF > 30,UVA + UVB). Monthly self-exam, and avoid direct sunlight/tanning. FU in 1 yr for FBSE, or sooner if concerns. Pt was reviewed and examined with Dr. Mansi Claros MD PGY-3 Dermatology Resident 07/09/2018 10:53 AM GER TALENT documented in this encounter Procedure Notes * Ck Claros MD - 07/09/2018 11:00 AM CSTAssociated Order(s): PROC DESTRUCTION OF PRE-MALIGNANT LESIONS Procedure(s): DE DESTROY PREMALIG LESION, 1ST LESION; DE DESTROY PREMALIG LESION, 2-14 Pre-Procedure Diagnose(s): Actinic keratosis; Porokeratosis Diagnosis and treatment options discussed, addressing the benefit and risks of each. Pt wish to proceed with cryotherapy. Liquid Nitrogen was applied to 6 lesions (1 porokeratosis on R latera thigh, 6 AKs: 2 on R rastafari, 1 on R upper eyelid, 2 on nasal bridge) for 5-7s each x 1 cycle. Wound care reviewed. GER TALENT Associated attestation - Jessica Nazario MD - 07/09/2018 11:04 AM MANAGER TALENT A procedure was performed. I was present for the entire procedure. See procedure note. Jessica Nazario MD, PhD documented in this encounter Plan of Treatment Not on file documented as of this encounter Procedures Procedure Name Priority Date/Time Associated Diagnosis Comments DE DESTROY PREMALIG LESION, 1ST LESION Routine 07/09/2018 11:04 AM MANAGER TALENT Actinic keratosis Porokeratosis DE DESTROY PREMALIG LESION, 2-14 Routine 07/09/2018 11:04 AM MANAGER TALENT Actinic keratosis Porokeratosis documented in this encounter Results * DE DESTROY PREMALIG LESION, 2-14, DE DESTROY PREMALIG LESION, 1ST LESION (07/09/2018 11:04 AM MANAGER TALENT) Narrative Jessica Nazario MD - 07/09/2018 11:04 AM MANAGER TALENT Ck Claros MD ? 07/09/2018 11:01 AM Diagnosis and treatment options discussed, addressing the benefit and risks of each. Pt wish to proceed with cryotherapy. Liquid Nitrogen was applied to 6 lesions (1 porokeratosis on R latera thigh, 6 AKs: 2 on R rastafari, 1 on R upper eyelid, 2 on nasal bridge) for 5-7s each x 1 cycle. Wound care reviewed. ?? 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
--- OUTSIDE RECORDS SUMMARY | 2024-06-25 22:02 | XMS_ITS | Encounter Summary ---
Author Organization [facility] Address [address] [place] [address] Care Team Providers Care Heavy Media Operator Name Role Phone Julio César Briseno MD Primary Care Provider [phone] Reason for Visit * Reason Comments Collagen Implant Encounter Details Date Type Department Care Team (Latest Contact Info) Description 05/14/2018 11:00 AM BID ANALYST Procedure visit [facility] Obstetrics Gynecology and Women's Health [address] [place] [address] Anne-Marie Dobson MD [address] [place] [address] DIANA (stress urinary incontinence, female) Social History Tobacco Use Types Packs/Day Years [...] Sign Reading Time Taken Comments Blood Pressure 134/78 05/14/2018 11:05 AM BID ANALYST Pulse - - Temperature - - Respiratory Rate - - Oxygen Saturation - - Inhaled Oxygen Concentration - - Weight 83.5 kg (184 lb) 05/14/2018 11:05 AM BID ANALYST Height 160 cm (5' 3 ) 05/14/2018 11:05 AM BID ANALYST Body Mass Index 32.59 05/14/2018 11:05 AM BID ANALYST documented in this encounter Patient Instructions * Patient Instructions* Anne-Marie Dobson MD - 05/14/2018 11:36 AM BID ANALYST Vesicare 5 mg daily and let me know how this does in 4 weeks. Stop the toviaz It is rare to experience any difficulty emptying your bladder but it can happen. It is temporary. You should urinate every 2-4 hrs today. If it has been more than 4 hrs since you have gone you should call us. If you are going just dribbles and or feel you are not empty you should call us day of night,. Day number is [phone] and after hrs is [phone] You should take 1 antibiotic now and one tonight. Call in 1 week to report how it is doing. You should note an improvement straight away. If you need more we usually wait at least a month. ANALYST documented in this encounter Progress Notes * Anne-Marie Dobson MD - 05/15/2018 12:25 PM CST Was good for couple days then both DIANA and urge back Change to vesicare 5 mg daily and coaptitie today ANALYST documented in this encounter Procedure Notes * Anne-Marie Dobson MD - 05/15/2018 12:24 PM CSTAssociated Order(s): PROC COLLAGEN IMPLANT URETHRAL INJ MATERIAL Procedure(s): MD ENDOSCOPIC INJECTION/IMPLANT Pre-Procedure Diagnose(s): DIANA (stress urinary incontinence, female) Periurethral Bulking Procedure Note Pre-Operative Diagnosis: Stress incontinence (N39.3) ISD (N36.42) - leak point pressure of <100 Hypomobility of urethra Post-Operative Diagnosis: same Indications: Intrinsic sphincteric deficiency. Procedure Details: The [...] injection system was used with a non-coring disposableneedle to apply the material. It was placed in 2 points, at 4,6 o'clock. There was good hemostasis. The total amount of material used was 1.7 cc of [id number]. The lot number was [id number]. She tolerated the procedure and was allowed [...] than 1 month apart. Antibiotic prophylaxis given ANALYST documented in this encounter Plan of Treatment Not on file documented as of this encounter Procedures Procedure Name Priority Date/Time Associated Diagnosis Comments MD ENDOSCOPIC INJECTION/IMPLANT Routine 05/15/2018 12:25 PM BID ANALYST DIANA (stress urinary incontinence, female) documented in this encounter Results * MD ENDOSCOPIC INJECTION/IMPLANT (05/15/2018 12:25 PM BID ANALYST) Narrative Anne-Marie Dobson MD - 05/15/2018 12:25 PM BID ANALYST Anne-Marie Dobson MD ? 05/15/2018 12:25 PM [...] A 15 degree rigid cystoscopy using the Zzish injection system was used with a non-coring disposable needle to apply the material. It was placed in 2 points, at 4,6 o'clock. There was good hemostasis. The total amount of material used was 1.7 cc of [id number]. The lot number was [id number]. She tolerated the procedure and was allowed [...] Anne-Marie Dobson MD PROCEDURE/MINOR SURG ICAL ORDERABLES documented in this encounter Visit Diagnoses Diagnosis DIANA (stress urinary incontinence, female)- Primary Female stress incontinence documented in this encounter Care Teams Heavy Media Operator Relationship Specialty Start Date End Date Julio César Briseno MD PCP - General 10/23/17 documented as of this encounter
--- OUTSIDE RECORDS SUMMARY | 2024-06-25 22:02 | XMS_ITS | Encounter Summary ---
Author Organization [facility] Address [address] [place] [address] Care Team Providers Care Adult Education Instructor Name Role Phone Julio César Briseno MD Primary Care Provider [phone] Reason for Visit * Reason Onset Date Comments Update 04/02/2018 Encounter Details Date Type Department Care Team (Late st Contact Info) Description 04/02/2018 Telephone [facility] [address] [place] [id number] Anne-Marie Dobson MD [address] [place] [address] Update Social History Tobacco Use [...] Telephone Encounter - Luciano Stanley RN - 04/08/2018 11:45 AM CDT Pt given Dr. Dobson's msg. 05/14 Coapptite appt at [facility], 2nd floor. * Telephone Encounter - Anne-Marie Dobson MD - 04/07/2018 3:49 PM CDT Tell her that some nights she produces more urine than normal but other 2 nights she did not. So not sure that adding med at night will help. Suggest we do additional coaptite as the average number of treatments is 2-3 to make someone dry. We can look to move her up Thx * Telephone Encounter - Anne-Marie Hadley RN - 04/02/2018 3:52 PM CDT Doing well but still with some issues alcohol last Saturday night (1 beer) and had dribbling issues on the way to the bathroom Sat 03/29 16 oz water during the day Went to bed at 8:30 pm Woke at 11;30pm void of 9 ounces Woke at 5:15 am void 16 ounces with leaks and drops all over the floor before actually sitting down Woke up at 8:30 am with voiding 4 ounces Friday 03/30 Drank 19 ounces and had a good night No issues Saturday 03/31 Bed at 11 pm up at 12:30 am to void 7 ounces (had an 8 oz soda at [facility] that day) Got up that night void 14 ounces, no leaks When she has soda seems to do well, per patient 2nd Coapptite appt 05/[address] Dobson wants to repeat. This may change Patient aware we will update Dr Dobson and be back in touch later this week * Telephone Encounter - Hien Smith - 04/02/2018 10:13 AM CDT Pt called in stating that Dr Dobson wanted her to call to give update on how her bladder is doing. She wanted her to monitor it for a couple months then call with an update. Pt callback# [phone] documented in this encounter Plan of Treatment Not on file documented as of this encounter Visit Diagnoses Not on filedocumented in this encounter Care Teams Adult Education Instructor Relationship Specialty Start Date End Date Julio César Briseno MD PCP - General 10/23/17 documented as of this encounter
--- OUTSIDE RECORDS SUMMARY | 2024-06-25 22:02 | XMS_ITS | Encounter Summary ---
Author Organization [facility] Address [address] [facility] [place] [address] Care Team Providers Care Workforce Development Program Director Name Role Phone Julio César Briseno MD Primary Care Provider [phone] Reason for Visit * Reason Comments Prolapse Encounter Details Date Type Department Care Team (Late st Contact Info) Description 10/23/2017 10:00 AM CDT Office Visit [facility] Obstetrics Gynecology and Women's Health [address] [place], [place] [id number] Anne-aMrie Dobson MD [address] [place] [address] Mixed incontinence (Primary Dx) Social History Tobacco Use Types Packs/Day Years [...] Sign Reading Time Taken Comments Blood Pressure 122/86 10/23/2017 10:19 AM CDT Pulse - - Temperature - - Respiratory Rate - - Oxygen Saturation - - Inhaled Oxygen Concentration - - Weight 80.7 kg (178 lb) 10/23/2017 10:19 AM CDT Height 160 cm (5' 3 ) 10/23/2017 10:19 AM CDT Body Mass Index 31.53 10/23/2017 10:19 AM CDT documented in this encounter Patient Instructions * Patient Instructions* Anne-Marie Dobson MD - 10/23/2017 11:20 AM CDT URINARY INCONTINENCE QUESTIONS AND ANSWERS ABOUT BLADDER CONTROL URINARY INCONTINENCE Urinary Incontinence is the accidental loss of urine. This can happen with very different activities including coughing, sneezing, laughing, exercising but can also just happen spontaneously. The good news is incontinence is very treatable. As many as 75-95% of women who seek treatment are cured orsignificantly improved. TYPES OF INCONTINENCE A) Stress Incontinence - Stress incontinence is the accidental loss of urine typically with coughing, sneezing, laughing or physical activity such as jumping, running. It is the most common form of incontinence in younger women and is the one that is typically associated with weakened pelvic floor muscles. B) Overactive Bladder (OAB) - Symptoms of this condition include frequency of urination, urgency, getting up multiple times at night and for some people difficulty making it to the bathroom. This problem is typically associated with a strong urge and trouble delaying the urge in time to make it to the bathroom. This type of incontinence occurs more commonly as we get older but can be seen at all ages. C) Overflow - This is the least common form of incontinence but occurs when a patient has difficulty emptying their bladder. The bladder is therefore always partially full and eventually it may just spill over the top like a waterfall. This is more commonly associated with conditions that cause problems with the nerve control to the bladder such as multiple sclerosis, Parkinson???s disease, stroke. It can also be seen in patients who have massive prolapse. BLADDER TESTING Your doctor may refer you for bladder testing, particularly if you are scheduled for surgery. The other common time this may happen is if you have leakage and it is difficult to tell what type you have. About 30% of the time we cannot tell from your history the type of incontinence and this test allows us to determine which incontinence you suffer from and therefore the best method of treatment. a) Urodynamic testing. Urodynamics is a procedure that measures the function of the bladder and theurethra. This involves having you urinate prior to the test. A small catheter (plastic tube) is then inserted into the bladder. This catheter allows us to determine how much your bladder holds and also what makes you leak. The catheter is then connected to a computer which does the measurements. During the test you will be typically asked to report your first sensation to urinate, fullness, and you will be asked to cough and strain to determine whether you leak. This test typically takes a halfan hour. You may have a mild burning sensation but that usually passes within a half an hour or so. b) Cystoscopy. This is a test where a small telescope is placed inside your bladder to view your bladder. This is typically done in patients who may have infections, frequency, urgency, overactive bladder or blood in the urine. It may also be done in patients who have had previous surgery to make sure that there are no stitches in the bladder. TEST RESULTS If you are an established patient of the [facility] Urogynecology Office, one of the doctors will typically sit down with you the day of the test and give you the results and plan out your treatment. If youare referred from an outside physician for the testing, then the results will be sent to your physician and you are asked to make a follow up appointment with your physician to discuss the results and likely treatment. TREATMENT OPTIONS: STRESS INCONTINENCE a) Pelvic floor muscles exercises (Kegels). The muscles surrounding the urethra and vagina and rectum help stop urination during times where you may increase the pressure on the bladder, i.e. coughing, sneezing, exercising. The idea of these exercises is to strengthen those muscles so that they squeeze quickly to prevent the urine loss. This is a treatment for stress incontinence. It takes 8- 12 weeks for the exercises to be effective. Typically you will be started with a regime of twice daily exercises with 10 contractions twice a day. Start by holding for 2 seconds then each week increase by2 to a max of 6 or 8 sec. This number is increased every week until you get up to 45 contractions twice daily. This may help in approximately 60-70% of cases. b) Biofeedback. This is a technique to improve your ability to do pelvic floor exercises. It involves either a physical therapist or a nurse typically placing either EKG type patches around the vagina or a small tampon size probe in the vagina or rectum. This allows them to trace your muscles on a computer screen and allows both the therapist and you to see how well you are squeezing these muscles. With time, you can monitor your progress. It is basically like having a review trainer for the vagina. For people who have very poor or weak muscles, this may be the only way to get these muscles???kick started.?? c) Injections. There are a number of types of material for example, Collagen, Durisphere which can be injected into the muscle around the urethra to help it seal or close better. It is like placing some caulking around the edges so that is doesn???t leak. With Collagen you need to have a skin test placed as the material comes from a cow. The skin test needs to be in place for 28 days prior to theinjection. Only a small percentage of patients are candidates for this. It is typically used for patients who have what we would call no mobility (or movement) of the urethra. This means that the bladder and the small tube that you urinate out of is in the correct position and doesn???t move. This often occurs after someone has had previous surgery or someone who has not had previous children or patients who have had radiation. d) Surgery: A) Sling. The most common type of suspension performed is what we call a type of sling. The suspension is around the urethra (tube that you urinate out of). The most common slings performed currentlyare the TVT or TOT but they are not the only ones and your doctor would make the decision as to which would be the best. This typically involves three small incisions, one in the vagina under the uret hra and two either just above your pubic bone or near the crease of the leg. The urethra is then wrapped in a sling or a hammock of mesh. It attaches to the muscles so that when you cough or sneeze or exercise the sling pulls up and closes the urethra off so you don???t leak. B) Gudino. This is an incontinence procedure that is done either with an incision in the abdomen or may be done laparoscopically. That decision would be at the discretion of your physician. This type of urethral suspension involves placing sutures around the urethra and attaching it to a bone near the pelvis. Which of these two types of procedures is done really depends on severity of incontinence or whether you have prolapse or other conditions that need to be treated. It also may depend on the results of the bladder testing. Your physician will sit down and discuss which method they feel is most likely to be successful. OVERACTIVE BLADDER Conservative: b) Behavior modification. We find that a lot of patients drink tremendous amounts of fluid and/or drink liquids that are very irritating to the bladder. Typically anything with caffeine, i.e. tea, coffee, Coke, Pepsi, diet Coke, diet Pepsi are very irritating to the bladder and certainly may give you more frequency of urination. The amount of fluid required in the average diet is between 4-6 glasses of something a day. If you are therefore drinking more than 1200 to 1500 cc of fluid, you are drinking more than you require. c) Bladder retraining. Urinating too frequently or too seldom may result in a bad habit for your bladder. Fortunately the bladder is trainable. With bladder drills (retraining) the aim is to get you to 2?? to 3 hours comfortably without significant urge. This typically involves you keeping a voiding record for 24 hours. Based on this record your physician will choose a time that appears to be comfortable for you. You then start to urinate at that interval, i.e. every hour for the first week. The interval is slowly increased every week by 15 minutes until you can get to 2?? to 3 hours. The aimis to have you urinate prior to getting the urge and then gradually increase the interval of time between urination. This works very well for patients who have frequency, urgency and/or urge incontinence. d) Medication. Overactive bladder is typically treated with either drills (description above) or pills, i.e. medications. These medication treat the muscle of the bladder which is overactive. This muscle does not relax and therefore you go frequently. It also may contract and suddenly leak on you. M edications are used to treat frequency, urgency, night time urination and urge incontinence. The most commonly prescribed medications are Detrol, Ditropan, Vesicare, Enablex, Sanctura, Toviaz, gelnique gel and Oxytrol patch. Your doctor may need to switch between these medications because no one patient responds to every medication. OVERFLOW INCONTINENCE This is the most difficult form of incontinence to treat as it really depends on the cause of the problem. If the difficulty with emptying is due to a large prolapse, then fixing the prolapse may correct the problem. Unfortunately a lot of times the bladder is stretched out of shape. It is like having a sweater that is overstretched and no matter how many times you wash it, it does not bounce back into shape. Your doctor may want to place a suprapubic catheter at the time of your surgery to determine how you are emptying postoperatively. This involves placing a small tube into the bladder just above the pubic bone. This may be a temporary thing or can be used for permanent drainage of the bladder depending on whether your bladder function returns to normal. If your bladder is not functioning normally because of multiple sclerosis or a stroke, then this may be the only treatment available. Overflow incontinence is a very complex problem and it will be discussed in detail with you by your physician. documented in this encounter Progress Notes * Anne-Marie Dobson MD - 10/23/2017 10:59 AM CDT Urogynecology - Initial Visit Ms. La Chung is a 66 y.o. year old, 6, para 4, female who has a problem withincontinence. Duration of problem - 2 years. Predominent symptoms are/is: mixed - urge predominent. Pt states that she is fine when she is sitting and then she will get up and get a sudden urge and then she leaks all the way to the bathroom. Atnight she is sleeping and then she will sit up on the edge of the bed and then when she gets up shewill leak all the way to the toilet and then she does not have enough to even measure. Also has leakage when she coughs and bends and lifts. Urinary symptoms Stress incontinence - Yes Urge incontinence - Yes Daytime Frequency - very 1hr Nocturia 3x Postvoid fullness - No Urinary hesitancy - No Postvoid dribbling - No Pads used - Yes Treatment -No Defecatory symptoms Constipation - No Fecal incontinence - No but she has soft stools since the alanna but now she is on cholestyramine this is much better Digitation to effect or complete defecation - No Prolapse symptoms Pressure - No - occasionally may feel something Bulge - No Urinary tract infections No Sexual history Sexually active - No Incontinence with I/C - No Her just diagnosed with stomach cancer. Daughter under Rx for melanoma. No past medical history on file. Past Surgical History: No date: Cholecystectomy No date: HX TONSILLECTOMY/ADENOIDECTOMY No date: Hysterectomy No date: OTHER SURGERY Comment: plantar facitis Social History Marital status: Spouse name: N/A Years of education: N/A Number of children: N/A Occupational History None on file Social History Main Topics Smoking status: Never Smoker Smokeless tobacco: Never Used Alcohol use Yes Drug use: No Sexual activity: No Other Topics Concern None on file Social History Narrative Current Outpatient Prescriptions on File Prior to Visit: DULoxetine (CYMBALTA) 30 MG capsule Take 30 mg by mouth DAILY. Disp: Rfl: 3 octreotide (SANDOSTATIN LAR DEPOT) injection Inject 30 mg into muscle ONCE. Disp: Rfl: Ascorbic Acid (VITAMIN C) 500 MG Take 1 tablet by mouth DAILY. Disp: Rfl: valsartan-hydroCHLOROthiazide (DIOVAN HCT) 160-12.5 MG tablet Disp: Rfl: 3 No current facility-administered medications on file prior to visit. -- Ramipril -- Other -- cough -- Vytorin -- Other -- Muscle weakness Pertinent items are noted in HPI. and also see her printed sheet PHYSICAL EXAMINATION: CONSTITUTIONAL GENERAL: well developed, well nourished, well groomed, normal habitus GASTROINTESTINAL: Abdomen - no masses, no tenderness, no rebound, surgical scar noted, vertical LYMPHATICS: Nodes (all that apply) Groin - within normal limits BACK: within normal limits NEUROLOGIC/PSYCHIATRIC: Oriented to - person, place, time, situation Mood/Affect -within normal limits Sensory - within normal limits Motor Reflex- Knee- within normal limits Ankle- within normal limits Bulbocavernosus reflex - within normal limits Anal wink - within normal limits GYNECOLOGIC/GENITOURINARY: External genitalia - atrophic Urethral meatus - within normal limits Urethra - within normal limits Urethrovesical junction hypermobility - No - can feel attachments laterally like a Gudino Supine Empty Stress Test - negative Bladder base - within normal limits Vaginal/Pelvic floor support: Prolapse No Stage of prolapse - 0 Prolapsed area: Kegel strength 0/5 Cervix - not palpable Uterus - not palpable Adnexa - not palpable Tenderness - No Anus / Perineum - within normal limits Rectal Exam - N/A IMPRESSION AND PLAN: Clinically the patient has mixed incontinence. Treatment Plan as follows: Overactive bladder - the patient was counseled re OAB and that surgery is not used to treat this kind of incontinence. Discussed medications or retraining. Also explained fluid management and need toavoid bladder irritants.Pt does want to try medications. She was placed on toviaz 4 mg and asked tocall the office in 3 -4 weeks to report on her progress. Warned re common side-effects of dry mouth and constipation. Stress incontinence: She has no UVJ mobility. It feels like she had a Gudino though she says there was no abdominal incision. I explained that as she is immobile a sling would not be as successful. I have recommended that she consider Co-aptite and literature given. She has decided to try this. Her just diagnosed with stomach cancer so office based procedure would be the best option. documented in this encounter Plan of Treatment Not on file documented as of this encounter Visit Diagnoses Diagnosis Mixed incontinence- Primary Mixed incontinence urge and stress (male)(female) documented in this encounter Care Teams Workforce Development Program Director Relationship Specialty Start Date End Date Julio César Briseno MD PCP - General 10/23/17 documented as of this encounter
--- OUTSIDE RECORDS SUMMARY | 2024-06-25 22:02 | XMS_ITS | Encounter Summary ---
Author Organization [facility] Address [address] [place] [address] Care Team Providers Care New Grad Rn Name Role Phone Julio César Briseno MD Primary Care Provider [phone] Reason for Visit * Reason Onset Date Comments General 02/20/2018 Encounter Details Date Type Department Care Team (Late st Contact Info) Description 02/20/2018 Telephone [facility] Obstetrics Gynecology and Women's Health [address] [place], [place] [id number] Anne-Marie Dobson MD [address] [place] [address] General Social History Tobacco Use Types Packs/Day Years [...] encounter Miscellaneous Notes * Telephone Encounter - Anne-Marie Dobson MD - 02/20/2018 9:14 PM CDT Great to hear. Not tell her fingers crossed it lasts a long time. * Telephone Encounter - Anne-Marie Hadley RN - 02/20/2018 12:16 PM CDT Return call to patient Verified we will definitely let Dr Dobson know that this patient LOVES her! Patient wakes this morning to night and day difference following yesterday's urethral bulking (patient called it caulking ) Some hesitancy with voids but no leaking So happy! Aware to call with needs. * Telephone Encounter - Magi Mooney - 02/20/2018 11:44 AM CDT Patient stated she was seen by Dr Dobson yesterday 02/19/18. Patient want to let Dr Dobson know she loves her. documented in this encounter Plan of Treatment Not on file documented as of this encounter Visit Diagnoses Not on filedocumented in this encounter Care Teams New Grad Rn Relationship Specialty Start Date End Date Julio César Briseno MD PCP - General 10/23/17 documented as of this encounter
--- OUTSIDE RECORDS SUMMARY | 2024-06-25 22:02 | XMS_ITS | Encounter Summary ---
Author Organization [facility] Address [address] [facility] [place] [address] Care Team Providers Care Inspector Handbag Frames Name Role Phone Julio César Briseno MD Primary Care Provider [phone] Reason for Visit * Reason Onset Date Comments Question 03/04/2018 Encounter Details Date Type Department Care Team (Late st Contact Info) Description 03/04/2018 Telephone [facility] Obstetrics Gynecology and Women's Health [address] [place] [id number] Anne-Marie Dobson MD [address] [place] [address] Question Social History Tobacco Use Types Packs/Day Years [...] Telephone Encounter - Luciano Stanley RN - 03/28/2018 10:51 AM CDT La agrees to measure urine at night for a couple nights in a row starting this weekend. Then call us back next week. She was able to verbalize Dr. Dobson's instructions. * Telephone Encounter - Anne-Marie Dobson MD - 03/27/2018 9:22 PM CDT Can you get her to measure at night. Need to know how much she voids - throw out last one at night,then measure alll the ones for rest of the night and then first one in the morning. I need to know the total volume. If she needs a hat to do this then she should come and get one. The reason is thatif she produces a lot at night then she may need DDAVP. But that doesn't work if she produces a normal amount. Also can change the toviz. * Telephone Encounter - Luciano Stanley RN - 03/27/2018 2:47 PM CDT She's still drinking sodas, mostly with lunch. Sometimes 2/day. (Her mother in law is having lots of health issues which is stressing her out. Soda helps w/ stress.) Toviaz at HS. She has leaks during the day, enough to fill a large pad 2x/day. Her worst problem is night time- goes to bed by 930p. Then usually up as follows: 1200,200am, 4am and 6 or 7am. Sometimes she makes it to the bathroom, sometimes her Depends is totally saturated. Advised: as things calm down w/ m-I-law, try to stop the soda and see how things go. Keep a diary during these days and bring w/ you to next appt 05/14. * Telephone Encounter - Luciano Stanley RN - 03/05/2018 11:[address] Dobson agrees w/ current plan. * Telephone Encounter - Luciano Stanley RN - 03/04/2018 12:27 PM CDT She was doing great after her first Coapptite on 02/19 until 3 days ago. Now, having accidents at night. Woke up in a puddle of urine or dribbled as she walked to the bathroom. Change daily dose of Toviaz to HS on 02/19 and felt she was doing better. She did have soda w/ dinner 2/3 nights,but Normally has w/ lunch. Daytime voids still doing great! No accidents, etc. PLAN: -Stop soda w/ dinner and see if it makes a difference. She agrees to keep a diary for the next week, then cb with an update. - Went ahead and gave her 2nd Coapptite appt 05/[address] Dobson wants to repeat. This may change after we hear back from you next week. * Telephone Encounter - Hien Smith - 03/04/2018 10:29 AM CDT Pt called in stating that she would like to speak to the nurse regarding her coaptite procedure. Pt callback# [phone] documented in this encounter Plan of Treatment Not on file documented as of this encounter Visit Diagnoses Not on filedocumented in this encounter Care Teams Inspector Handbag Frames Relationship Specialty Start Date End Date Julio César Briseno MD PCP - General 10/23/17 documented as of this encounter
--- OUTSIDE RECORDS SUMMARY | 2024-06-25 22:02 | XMS_ITS | Encounter Summary ---
Author Organization [facility] Address [address] [facility] [place] [address] Care Team Providers Care Project Executive Name Role Phone Julio César Briseno MD Primary Care Provider [phone] Reason for Visit * Reason Onset Date Comments Update 05/27/2018 Encounter Details Date Type Department Care Team (Late st Contact Info) Description 05/27/2018 Telephone [facility] Obstetrics Gynecology and Women's Health [address] [place] [address] Anne-Marie Dobson MD [address] [place] [address] Update Social History Tobacco Use [...] Telephone Encounter - Anne-Marie Dobson MD - 05/27/2018 4:03 PM CST Totally agree. A little dribbling seems minor and I would wait. IAGE SETTER * Telephone Encounter - Luciano Stanley RN - 05/27/2018 12:04 PM CST UPDATE: Vesicare started 2 wks ago- no more dry mouth! Coapptite 2nd injection update - she started out very well. Then noticed some dribbling leakage, but thinks it might be associated with soda & caffeine. She drank decaf this am, but still had some dribbling. She is going to try not to have any soda this weekend or coffee and see what happens. She thought Dr. Dobson said she would do a third injection after 1 month if needed. PLAN: Let's give Vesicare another week. Call us next week w/ update from the weekend of no soda andanother week of Vesicare. Will let Dr. Dobson know how she is so far. IAGE SETTER * Telephone Encounter - Juliet Walker - 05/27/2018 10:26 AM CST Pt is calling back re how she's doing after the coaptite. Is having some success but is leaking at certain times yet. Call back # [phone] IAGE SETTER documented in this encounter Plan of Treatment Not on file documented as of this encounter Visit Diagnoses Not on filedocumented in this encounter Care Teams Project Executive Relationship Specialty Start Date End Date Julio César Briseno MD PCP - General 10/23/17 documented as of this encounter
--- OUTSIDE RECORDS SUMMARY | 2024-06-25 22:02 | XMS_ITS | Encounter Summary ---
Author Organization [facility] Address [address] [facility] [place] [address] Care Team Providers Care Locomotive Observer Name Role Phone Julio César Briseno MD Primary Care Provider [phone] Encounter Details Date Type Department Care Team (Late st Contact Info) Description 06/15/2018 Orders Only [facility] [address] [place] [address] Anne-Marie Dobson MD [address] [place] [id number] Social History Tobacco Use Types Packs/Day Years [...] on filedocumented in this encounter Care Teams Locomotive Observer Relationship Specialty Start Date End Date Julio César Briseno MD PCP - General 10/23/17 documented as of this encounter
--- OUTSIDE RECORDS SUMMARY | 2024-06-25 22:02 | XMS_ITS | Encounter Summary ---
Author Organization [facility] Address [address] [place] [place] [address] Care Team Providers Care Complex Director Name Role Phone Julio César Briseno MD Primary Care Provider [phone] Reason for Visit * Reason Onset Date Comments Appointment 02/17/2018 Encounter Details Date Type Department Care Team (Late st Contact Info) Description 02/17/2018 Telephone [facility] [address] [place], [place] [id number] Anne-Marie Dobson MD [address] [place] [address] Appointment Social History Tobacco Use Types Packs/Day Years [...] Miscellaneous Notes * Telephone Encounter - Anne-Marie Hadley RN - 02/17/2018 11:09 AM CDT Left voice mail message for patient asking her to move her 02/19 appointment up by 15 minutes for a 9:45 am appointment that day (instead of 10 am) Reviewed possible change in suite of same building. May be in [address], if not, still [address]. To call if any questions about this message. documented in this encounter Plan of Treatment Not on file documented as of this encounter Visit Diagnoses Not on filedocumented in this encounter Care Teams Complex Director Relationship Specialty Start Date End Date Julio César Briseno MD PCP - General 10/23/17 documented as of this encounter
--- OUTSIDE RECORDS SUMMARY | 2024-06-25 22:02 | XMS_ITS | Encounter Summary ---
Author Organization [facility] Address [address] [place] [address] Care Team Providers Care Ic Design Engineer Name Role Phone Julio César Briseno MD Primary Care Provider [phone] Reason for Visit * Reason Onset Date Comments Medication Response 07/09/2018 Encounter Details Date Type Department Care Team (Late st Contact Info) Description 07/09/2018 Telephone [facility] [address] [place], [place] [id number] Anne-Marie Dobson MD [address] [place] [address] Medication Response Social History Tobacco Use Types Packs/Day Years [...] encounter Miscellaneous Notes * Telephone Encounter - Elaine Rg LPN - 07/10/2018 3:51 PM FRAME NAILER I called the patient - informed her of the new medication to try. We will have samples tomorrow forher to orange picker. She will Will get myrbetriq 25 mg from the [facility] office - one month. She will take them once a day and f/u next month for her coaptite injection. All are in agreement E NAILER * Telephone Encounter - Anne-Marie Hadley, [place] - 07/09/2018 4:43 PM FRAME NAILER Trospium 20 BID No difference, not able to make it to the bathroom Nights, she wears a depends. Rolls over in bed, feels urge and before she can even get out of bed and start to bathroom, she is wet Per patient, this is her 3rd medication failed. From this office records indicate Toviaz 4 and Trospium [address] prescribed [address] Dobson Patient is aware we will check with Dr Dboson and be back in touch E NAILER * Telephone Encounter - Juliet Walker - 07/09/2018 2:51 PM CST Pt calling back to report on the [facility] as instructed by Dr Dobson. Has been taking for about amonth and says it's not working at all for her. Call back # [phone] E NAILER documented in this encounter Plan of Treatment Not on file documented as of this encounter Visit Diagnoses Not on filedocumented in this encounter Care Teams Ic Design Engineer Relationship Specialty Start Date End Date Julio César Briseno MD PCP - General 10/23/17 documented as of this encounter
--- OUTSIDE RECORDS SUMMARY | 2024-06-25 22:02 | XMS_ITS | CONTINUITY OF CARE DOCUMENT ---
Author Name corbin, corbin Address Unknown Organization [facility] Address [address] 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 Name Role Phone Lucio MAS, Ayush Unavailable KATLYN LEON MD Unavailable [phone] KATLYN LEON MD Unavailable [phone] PROBLEMS Condition Status Date Provider Notes Hypercholesterolemia active Ayush Valdes MD Anemia active Ayush Valdes MD Neuroendocrine carcinoma s/p resection in 09/20 , follwed at [facility] active Ayush Valdes MD CHEST PAIN-02/09 NUC NEG active Ayush Valdes MD HYPERLIPIDEMIA completed - Ayush Valdes MD HTN-02/16 ECHO LVH AVERY DYS EF 65 active García Valdes MD ENCOUNTERS Date Type Provider Location Encounter Diag nosis 1 - 1 In-person encounter Office Visit Ayush Valdes MD [facility] 1 - 1 In-person encounter Office Visit Ayush Valdes MD [facility] 2 - 2 In-person encounter Office Visit Ayush Valdes MD [facility] 1 - 1 In-person encounter Office Visit Ayush Valdes MD [facility] 3 - 3 In-person encounter Office Visit Ayush Valdes MD [facility] HYPERLIPIDEMIANeuroendocrine carcinoma s/p resection in 09/20 , follwed at sitemanAnemiaHypercholesterolemia 1 - 1 In-person encounter Office Visit Ayush Valdes MD [facility] 1 - 1 In-person encounter Office Visit Ayush Valdes MD [facility] HTN-02/16 ECHO LVH AVERY DYS EF 65 6 - 6 In-person encounter Office Visit Ayush Valdes MD [facility] 0 - 0 In-person encounter Office Visit Ayush Valdes MD [facility] 7 - 7 In-person encounter Office Visit Ayush Valdes MD [facility] 1 - 1 In-person encounter Office Visit Ayush Valdes MD [facility] 3 - 3 In-person encounter Office Visit Ayush Valdes MD [facility] HTN-02/16 ECHO LVH AVERY DYS EF 65HYPERLIPIDEMIACHEST PAIN-02/09 NUC NEG VITAL SIGNS Date Observation Value Provider Body Mass Index (Ratio) 31.88 kg/m2 Brown Valdes MD blood pressure, diastolic 70 mm[Hg] [facility], systolic 110 mm[Hg] Briseida colmenares [place] oxygen saturation, oximetry 97 % [facility] respiratory rate E&M 16 /min [facility] pulse rate 89 /min [facility] weight E&M 180 [lb_av] [facility] height E&M 63 [in_i] [facility] Body Mass Index (Ratio) 32.24 kg/m2 Brown Valdes MD pulse rate 78 /min Tio sharma oxygen saturation, oximetry 98 % Tio Velasquez blood pressure, diastolic 80 mm[Hg] Yo Velasquez blood pressure, systolic 136 mm[Hg] [email or web address] respiratory rate E&M 16 /min Tio [facility] weight E&M 182 [lb_av] Tio [facility] blood pressure, resting Yes Madisyn [facility]rieta [facility] 63 [in_i] [facility] Body Mass Index (Ratio) 31.53 kg/m2 Brown Valdes MD blood pressure, cuff size regular Yanet rojo Ayers blood pressure, diastolic 80 mm[Hg] Jane Armen blood pressure, systolic 130 mm[Hg] Mere Ayers oxygen saturation, oximetry 98 % Marly Ayers respiratory rate E&M 16 /min Marly Ayers pulse rate 87 /min Marly Ayers weight E&M 178 [lb_av] Marly Ayers height E&M 63 [in_i] Marly Ayers blood pressure, diastolic 78 mm[Hg] Sc eliane De La Rosa blood pressure, systolic 147 mm[Hg] Faith pena De La Rosa pulse rate 74 /min Sandhya De La Rosa oxygen saturation, oximetry 97 % Sandhya De La Rosa respiratory rate E&M 15 /min Sandhya De La Rosa Body Mass Index (Ratio) 32.41 kg/m2 [facility] [lb_av] Sandhya De La Rosa blood pressure, diastolic 82 mm[Hg] Sc eliane De La Rosa blood pressure, systolic 146 mm[Hg] Faith pena De La Rosa pulse rate 70 /min Sandhya De La Rosa oxygen saturation, oximetry 96 % Sandhya De La Rosa respiratory rate E&M 14 /min Sandhya De La Rosa Body Mass Index (Ratio) 32.77 kg/m2 [facility]&M 185 [lb_av] Sadnhya Estrella Body Mass Index (Ratio) 34.01 kg/m2 Evelin Hernandez blood pressure, avery tolic, second observation 84 mm[Hg] Elaine Hernandez blood pressure, syst olic, second observation 157 mm[Hg] Elaine Hernandez blood pressure, diastolic 84 mm[Hg] Na tone Hernandez blood pressure, systolic 157 mm[Hg] Nya Hernandez pulse rate 110 /min Elaine Hernandez oxygen saturation, oximetry 98 % Elaine Hernandez respiratory rate E&M 17 /min Elaine Hernandez weight E&M 192 [lb_av] Elaine Hernandez Body Mass Index (Ratio) 34.54 kg/m2 Gila fidelina Claire blood pressure, diastolic 78 mm[Hg] An ansley Dakotah blood pressure, systolic 146 mm[Hg] Ane atrijames Claire pulse rate 86 /min Aneatris [place] oxygen saturation, oximetry 98 % Sanjaydarius Claire respiratory rate E&M 18 /min Aneatri james Claire weight E&M 195 [lb_av] Preciousatrdarius Claire blood pressure, diastolic 73 mm[Hg] Juice Buckner RN blood pressure, systolic 134 mm[Hg] Stephon Bucknre RN pulse rate 82 /min Stephon Buckner RN oxygen saturation, oximetry 98 % Stephon Buckner RN respiratory rate E&M 16 /min Stephon jaimes RN Body Mass Index (Ratio) 34.67 kg/m2 Stephon Buckner RN weight E&M 195 [lb_av] Stephon Buckner RN height E&M 63 [in_i] Stephon Buckner RN blood pressure, diastolic 91 mm[Hg] Juice Buckner RN blood pressure, systolic 145 mm[Hg] Stephon Buckner RN pulse rate 77 /min Stephon Buckner RN oxygen saturation, oximetry 95 % Stephon Buckner RN respiratory rate E&M 18 /min Stephon jaimes RN weight E&M 193 [lb_av] Stephon Buckner RN blood pressure, diastolic 71 mm[Hg] Juice Buckner RN blood pressure, systolic 124 mm[Hg] Stephon Buckner RN pulse rate 73 /min Stephon Buckner RN oxygen saturation, oximetry 96 % Stephon Buckner RN respiratory rate E&M 18 /min Stephon jaimes RN weight E&M 186 [lb_av] Stephon Buckner RN blood pressure, diastolic 71 mm[Hg] Juice Buckner RN blood pressure, systolic 104 mm[Hg] Stephon Buckner RN pulse rate 80 /min Stephon Buckner RN oxygen saturation, oximetry 95 % Stephon Buckner RN respiratory rate E&M 18 /min Stephon jaimes RN weight E&M 194 [lb_av] Stephon Buckner RN blood pressure, diastolic 74 mm[Hg] Juice Buckner RN blood pressure, systolic 135 mm[Hg] Stephon Buckner RN pulse rate 94 /min Stephon Buckner RN oxygen saturation, oximetry 97 % Stephon Buckner RN respiratory rate E&M 20 /min Stephon jaimes RN ALLERGIES Allergy Name Onset Date Reaction Criticality Status ALTACE High Criticality active RESULTS Date Observation Value Provider Reference Range Interpretation Location platelet count 153 10*3/mm3 Frank Kwok hematocrit, blood 44.3 % Frank Kwok triglyceride, serum, fasting 189 mg/dL Frank Kwok LDL cholesterol, serum 61 mg/dL Frank Kwok HDL cholesterol, serum 49 mg/dL Frank Kwok cholesterol, serum 148 mg/dL Frank Kwok thyroid stimulating hormone, serum 4.730 u[IU]/mL Frank Kwok alanine aminotransferase (SGPT), serum 28 1/L [facility] aspartate aminotransferase (SGOT), serum 28 1/L [facility] creatinine, serum 0.70 mg/dL [facility] potassium, serum 3.8 mmol/L [facility] sodium, serum 144 mmol/L [facility] alanine aminotransferase (SGPT), serum 45 1/L [facility] aspartate aminotransferase (SGOT), serum 33 1/L [facility] blood glucose, random 108 mg/dL [facility] creatinine, serum 0.75 mg/dL [facility] urea nitrogen, blood 17 mg/dL [facility] carbon dioxide, serum, total 29 mmol/L [facility] chloride, serum 104 mmol/L [facility] potassium, serum 4.1 mmol/L [facility] sodium, serum 140 mmol/L [facility] triglyceride, serum, fasting 75 mg/dL [facility] HDL cholesterol, serum 54 mg/dL [facility] LDL cholesterol, serum 52 mg/dL [facility] cholesterol, serum 121 mg/dL [facility] alkaline phosphatase, serum 87 1/L [facility] alanine aminotransferase (SGPT), serum 40 1/L [facility] aspartate aminotransferase (SGOT), serum 22 1/L [facility] triglyceride, serum, fasting 100 mg/dL [facility] HDL cholesterol, serum 65 mg/dL [facility] LDL cholesterol, serum 42 mg/dL [facility] cholesterol, serum 127 mg/dL [facility] creatinine, serum 0.7 mg/dL [facility] urea nitrogen, blood 11 mg/dL [facility] potassium, serum 3.9 mmol/L [facility] sodium, serum 140 mmol/L [facility] cholesterol/HDL ratio, serum 3.9 Anne-Marie Edwin VILLATORO triglyceride, serum, fasting 240 mg/dL Anne-Marie Pineda RN HDL cholesterol, serum 45 mg/dL Anne-Marie Pineda RN LDL cholesterol, serum 82 mg/dL Anne-Marie Edwin VILLATORO cholesterol, serum 175 mg/dL Anne-Marie Edwin VILLATORO HISTORY OF MEDICATION USE Medication Status Instructions Dates Provider Indications Com ments OLMESARTAN MEDOXOMIL-HCTZ 40-25 MG ORAL TABLET active TAKE 1 TABLET BY MOUTH EVERY DAY 08/17 Jessica Kurtz #90, 90 days supply, Prescribed by KATLYN LEON, Filled 09/30/2018 MYRBETRIQ 50 MG ORAL TABLET EXTENDED RELEASE 24 HOUR active TAKE 1 TABLET BY MOUTH EVERY DAY 10/16 Jessica Kurtz #30, 30 days supply, Prescribed by ANNE-MARIE LAWSON, Filled 10/26/2018 COQ10 100 MG ORAL CAPSULE completed take 1 capsule once daily 11/05 - 12[facility] 500 MG ORAL TABLET completed take 1 tablet once daily 11/05 - 12/16 [facility] TOVIAZ 4 MG ORAL TABLET EXTENDED RELEASE 24 HOUR active take 1 tablet once daily 11/05 Tio Velasquez CYMBALTA 30 MG ORAL CAPSULE DELAYED RELEASE PARTICLES active take once a day 11/06 Marly Ayers HYDROCHLOROTHIAZIDE 12.5 MG ORAL TABLET completed po daily 07/08 - 11/06 Ayush Valdes MD FERROUS SULFATE 325 (65 FE) MG ORAL TABLET completed ONE PER DAY - 12/16 [facility] SANDOSTATIN 50 MCG/ML INJECTION SOLUTION active at [facility] , monthly injection Ayush Valdes MD DIOVAN HCT 160-25 MG ORAL TABLET completed ONE TAB. DAILY 03/08 - 12/16 Jessica Kurtz DOCUSATE SODIUM 100 MG ORAL TABLET completed 1 daily - 07/08 Sandhya De La Rosa MULTIVITAMINS ORAL CAPSULE completed ONE TAB. DAILY - 11/05 Tio Velasquez FISH OIL CAPSULE completed ONE TAB. DAILY - 11/05 Tio Velasquez NIACIN ER 500 MG ORAL TABLET EXTENDED RELEASE completed one tab daily- OTC 07/20 - Ayush Valdes MD SIMVASTATIN 20 MG ORAL TABLET active ONE TAB. DAILY 07/20 Stephon Buckner RN VITAMIN E TABLET completed - 11/05 Tio Velasquez FIBER TABLET completed - 11/05 Tio Velasquez OMEPRAZOLE 40 MG ORAL CAPSULE DELAYED RELEASE completed one tab daily - Sandhya De La Rosa VITAMIN D2 TABLET active 10550 units daily 11/05 Tio Velasquez ASPIRIN 81 MG ORAL TABLET completed ONE TAB. DAILY - Sandhya De La Rosa SIMCOR 1000-20 MG ORAL TABLET EXTENDED RELEASE 24 HOUR completed one po daily @ bedtime; take with aspirin 01/21 - 07/20 Stephon Buckner RN DIOVAN HCT TABLET completed 80/12.5 mg daily(ok to use generic if available) 03/20 - 03/08 Ayush Valdes MD SOCIAL HISTORY Date Observation Value Provider social history reviewed E&M revi ewed - no changes required Ayush Valdes MD physical exercise, f requency, days per week yes [facility] alcohol use, average drinks per day social basis only [facility] alcohol use no [facility] caffeine use, averag e drinks per day yes [facility] drug use no [facility] passive cigarette sm glenda exposure no [facility] smoking status Never smoker [facility] number of grandchildren Ayush Valdes MD physical exercise, f requency, days per week yes Ayush Valdes MD alcohol use, average drinks per day social basis only Ayush Valdes MD alcohol use no Ayush Valdes MD caffeine use, averag e drinks per day yes Ayush Valdes MD drug use no Ayush Valdes MD passive cigarette sm glenda exposure no Ayush Valdes MD smoking status Never smoker Ayush Valdes MD social history reviewed E&M revi ewed - no changes required Ayush Valdes MD social history reviewed E&M revi ewed - no changes required Ayush Valdes MD physical exercise, f requency, days per week yes Marlypaul Ayers alcohol use, average drinks per day social basis only Marly Ayers alcohol use no Marly Armen caffeine use, averag e drinks per day yes Marly Ayers drug use no Marly Ayers passive cigarette sm glenda exposure no Marly Ayers smoking status Never smoker Marly Ayers social history reviewed E&M revi ewed - no changes required Sandhya Estrella physical exercise, f requency, days per week yes Sandhya Gonzalezann alcohol use, average drinks per day social basis only Sandhya De La Rosa alcohol use no Sandhya Gonzalezann caffeine use, averag e drinks per day yes Sandhya Gonzalezann drug use no Sandhya Gonzalezann passive cigarette sm glenda exposure no Sandhya Gonzalezann smoking status Never smoker Sandhya Gonzalezsharon herr social history reviewed E&M revi ewed - no changes required Sandhya Estrella physical exercise, f requency, days per week yes Sandhya Gonzalezann alcohol use, average drinks per day social basis only Sandhya Gonzalezann alcohol use no Sandhya Gonzalezann caffeine use, averag e drinks per day yes Sandhya Gonzalezann drug use no Sandhya Gonzalezann passive cigarette sm glenda exposure no Sandhya Gonzalezann smoking status Never smoker Sandhya Gonzalezsharon herr social history reviewed E&M revi ewed - no changes required Ayush Valdes MD physical exercise, f requency, days per week yes Elaine Hernandez alcohol use, average drinks per day social basis only Elaine Hernandez caffeine use, averag e drinks per day yes Elaine Guptaoney drug use no Elaine Hernandez passive cigarette sm glenda exposure no Elaine Hernandez smoking status Never smoker Elaine guzman social history reviewed E&M lisa hampton - no changes required Ayush Valdes MD drug use no Stephon Buckner RN passive cigarette sm glenda exposure no Stephon Buckner RN social history reviewed E&M reviewed Stephon Buckner RN smoking status never smoker Stephon Buckner RN social history reviewed E&M reviewed Stephon Buckner RN social history reviewed E&M reviewed Stephon Buckner RN social history reviewed E&M reviewed Stephon Buckner RN physical exercise, f requency, days per week [facility], averag e drinks per day yes [facility] alcohol use, average drinks per day social basis only [facility] smoking status Non-smoker [facility] social history E&M Marital Statu s: L dom with family/friends E thnicity: Stephon Buckner RN social history reviewed E&M reviewed Stephon Buckner RN physical exercise, f requency, days per week yes [facility] caffeine use, averag e drinks per day [facility] use, average drinks per day social basis only [facility] smoking status Non-smoker [facility] MENTAL STATUS Date Observation Value Provider assessment of judgme nt and insight E&M Alert and oriented to time, place and person. Mood and affect are normal. Stephon Buckner RN assessment of judgme nt and insight E&M Alert and oriented to time, place and person. Mood and affect are normal. Stephon Buckner RN assessment of judgme nt and insight E&M Alert and oriented to time, place and person. Mood and affect are normal. Stephon Buckner RN assessment of judgme nt and insight E&M Alert and oriented to time, place and person. Mood and affect are normal. Stephon Buckner RN assessment of judgme nt and insight E&M Alert and oriented to time, place and person. Mood and affect are normal. Stephon Buckner RN FAMILY HISTORY Family Member Condition First Degree Blood Relative No Known Fam carlos a History INSURANCE PROVIDERS Payer name Policy type / Coverage type [place] [employer] party ID AARP [facility] [employer] [place] insurance Field Dailies [id number] [place] Medicare [id number] ADVANCE DIRECTIVES Name Date DISCUSSED - NO DECISION MADE TREATMENT PLAN Date Name Performer Cardiology Ayush Valdes MD Cardiology Ayush Valdes MD Cardiology Ayush Valdes MD Cardiology Ayush Valdes MD Cardiology: H er updated medication list for this problem includes: Simvastatin 20 Mg Oral Tablet (Simvastatin) ..... One tab. daily Ayush Valdes MD Cardiology Ayush Valdes MD Cardiology: B P today: 136/80 P rior BP: 130/80 (11/06/2016) Labs Reviewed: C reat: 0.70 (02/13/2013) C hol: 148 (02/13/2013) HDL: 49 (02/13/2013) LDL: 61 (02/13/2013) T (02/13/2013) Ayush Valdes MD Cardiology Ayush Valdes MD Cardiology Follow up Ayush fairbanks MD Cardiology Follow up Ayush fairbanks MD Cardiology Follow up Ayush fairbanks MD Cardiology Follow up Ayush fairbanks MD Cardiology Aysuh Valdes MD Cardiology Ayush Valdes MD Cardiology Ayush Valdes MD Cardiology Ayush Valdes MD Cardiology Ayush Valdes MD Cardiology Ayush Valdes MD Cardiology Ayush Valdes MD Cardiology Ayush Valdes MD Cardiology Ayush Valdes MD Cardiology Ayush Valdes MD Cardiology FAXED:increase valsrt an to 160/12.5 Ayush Valdes MD Cardiology FAXED Ayush Valdes MD follow up: H er updated medication list for this problem includes: Aspirin 81 Mg Tabs (Aspirin) ..... One tab. daily Ayush Valdes MD follow up: H er updated medication list for this problem includes: Diovan Hct Tabs (Valsartan-hydrochlorothiazide tabs) ..... 80/12.5 mg daily(ok to use generic if available) Aspirin 81 Mg Tabs (Aspirin) ..... One tab. daily BP today: 146/78 P rior BP: 134/73 (02/10/2013) Labs Reviewed: C reat: 0.70 (02/13/2013) C hol: 148 (02/13/2013) HDL: 49 (02/13/2013) LDL: 61 (02/13/2013) T (02/13/2013) Ayush Valdes MD routine : H er updated medication list for this problem includes: Diovan Hct Tabs (Valsartan-hydrochlorothiazide tabs) ..... 80/12.5 mg daily(ok to use generic if available) Aspirin 81 Mg Tabs (Aspirin) ..... One tab. daily Prior BP: 145/91 (02/04/2012) Labs Reviewed: C reat: 0.75 (06/15/2009) C hol: 121 (06/15/2009) HDL: 54 (06/15/2009) LDL: 52 (06/15/2009) T (06/15/2009) Ayush Valdes MD routine : H er updated medication list for this problem includes: Simcor 1000-20 Mg Tb24 (Niacin-simvastatin) ..... One po daily @ bedtime; take with aspirin BP today: / Prior BP: 145/91 (02/04/2012) C HOL: 121 (06/15/2009) LDL: 52 (06/15/2009) HDL: 54 (06/15/2009) T (06/15/2009) Ayush Valdes MD routine : H er updated medication list for this problem includes: Aspirin 81 Mg Tabs (Aspirin) ..... One tab. daily BP today: / Prior BP: 145/91 (02/04/2012) N uclear Stress Findings: Normal myocardial perfusion without infarct or ischemia. Normal gated study with LVEF 58%. Normal resting EKG and blood pressure. Insignificant ST segment depression in the inferior leads and no ST segment depression in the lateral leads to suggest ischemia. (02/27/2005) C HOL: 121 (06/15/2009) LDL: 52 (06/15/2009) HDL: 54 (06/15/2009) T (06/15/2009) B UN: 17 (06/15/2009) Creat: 0.75 (06/15/2009) Glucose: 108 (06/15/2009) N a+: 140 (06/15/2009) K+: 4.1 (06/15/2009) Cl: 104 (06/15/2009) O rders: E KG (CPT-21091) Ayush Valdes MD routine: H er updated medication list for this problem includes: Diovan Hct Tabs (Valsartan-hydrochlorothiazide tabs) ..... 80/12.5 mg daily Aspirin 81 Mg Tabs (Aspirin) ..... One tab. daily Prior BP: 124/71 (06/13/2010) Labs Reviewed: C reat: 0.75 (06/15/2009) C hol: 121 (06/15/2009) HDL: 54 (06/15/2009) LDL: 52 (06/15/2009) T (06/15/2009) Ayush Valdes MD routine: H er updated medication list for this problem includes: Simcor 1000-20 Mg Tb24 (Niacin-simvastatin) ..... One po daily @ bedtime; take with aspirin BP today: / Prior BP: 124/71 (06/13/2010) C HOL: 121 (06/15/2009) LDL: 52 (06/15/2009) HDL: 54 (06/15/2009) T (06/15/2009) Ayush Valdes MD routine: H er updated medication list for this problem includes: Aspirin 81 Mg Tabs (Aspirin) ..... One tab. daily BP today: / Prior BP: 124/71 (06/13/2010) N uclear Stress Findings: Normal myocardial perfusion without infarct or ischemia. Normal gated study with LVEF 58%. Normal resting EKG and blood pressure. Insignificant ST segment depression in the inferior leads and no ST segment depression in the lateral leads to suggest ischemia. (02/27/2005) C HOL: 121 (06/15/2009) LDL: 52 (06/15/2009) HDL: 54 (06/15/2009) T (06/15/2009) B UN: 17 (06/15/2009) Creat: 0.75 (06/15/2009) Glucose: 108 (06/15/2009) N a+: 140 (06/15/2009) K+: 4.1 (06/15/2009) Cl: 104 (06/15/2009) Echocardiogram: Normal left ventricular systolic function. Normal left ventricular size. There is borderline left ventricular hypertrophy. There is E to A wave reversal consistent with impaired LV relaxation . Normal E/E` 7.0. Left ventricular ejection fraction is estimated at 60%. Normal appearing mitral valve leaflets. Mild mitral valve regurgitation. Normal aortic root size. Normal pericardium with no pericardial or pleural effusion. (06/13/2010) Orders: E KG (CPT-83419) Ayush Valdes MD routine : B P today: 124/71 P rior BP: 104/71 (06/07/2009) Labs Reviewed: C reat: 0.75 (06/15/2009) C hol: 121 (06/15/2009) HDL: 54 (06/15/2009) LDL: 52 (06/15/2009) T (06/15/2009) Ayush Valdes MD routine : B P today: 124/71 Prior BP: 104/71 (06/07/2009) N uclear Stress Findings: Normal myocardial perfusion without infarct or ischemia. Normal gated study with LVEF 58%. Normal resting EKG and blood pressure. Insignificant ST segment depression in the inferior leads and no ST segment depression in the lateral leads to suggest ischemia. (02/27/2005) C HOL: 121 (06/15/2009) LDL: 52 (06/15/2009) HDL: 54 (06/15/2009) T (06/15/2009) B UN: 17 (06/15/2009) Creat: 0.75 (06/15/2009) Glucose: 108 (06/15/2009) N a+: 140 (06/15/2009) K+: 4.1 (06/15/2009) Cl: 104 (06/15/2009) Echocardiogram: Technically difficult study. Suboptimal exam.The left ventricular chamber size is normal. Wall thickness is increased consistent with mild concentric left ventricular hypertrophy. Normal left ventricular function. L V EF is estimated at 65%. There is E: A reversal of mitral inflow velocities consistent with diastolic dysfunction. M ild left atrial enlargement.Minimal mitral regurgitation. N o evidence of aortic valve regurgitation. M inimal tricuspid regurgitation. Minimal tricuspid regurgitation. N o evidence of pulmonic valve regurgitation [facility] (10/25/2008) Her updated medication list for this problem includes: Aspirin 81 Mg Tabs (Aspirin) ..... One tab. daily Ayush Valdes MD routine: H er updated medication list for this problem includes: Diovan Hct Tabs (Valsartan-hydrochlorothiazide tabs) ..... 80/12.5 mg daily Aspirin 81 Mg Tabs (Aspirin) ..... One tab. daily BP today: 104/71 P rior BP: 135/74 (05/10/2008) Labs Reviewed: C reat: 0.7 (01/15/2008) C hol: 127 (03/25/2008) HDL: 65 (03/25/2008) LDL: 42 (03/25/2008) T (03/25/2008) Ayush Valdes MD routine: H er updated medication list for this problem includes: Simcor 1000-20 Mg Tb24 (Niacin-simvastatin) ..... One po daily @ bedtime; take with aspirin BP today: 104/71 Prior BP: 135/74 (05/10/2008) C HOL: 127 (03/25/2008) LDL: 42 (03/25/2008) HDL: 65 (03/25/2008) T (03/25/2008) Ayush Valdes MD routine: H er updated medication list for this problem includes: Aspirin 81 Mg Tabs (Aspirin) ..... One tab. daily BP today: 104/71 Prior BP: 135/74 (05/10/2008) N uclear Stress Findings: Normal myocardial perfusion without infarct or ischemia. Normal gated study with LVEF 58%. Normal resting EKG and blood pressure. Insignificant ST segment depression in the inferior leads and no ST segment depression in the lateral leads to suggest ischemia. (02/27/2005) C HOL: 127 (03/25/2008) LDL: 42 (03/25/2008) HDL: 65 (03/25/2008) T (03/25/2008) B UN: 11 (01/15/2008) Creat: 0.7 (01/15/2008) Na+: 140 (01/15/2008) K+: 3.9 (01/15/2008) Echocardiogram: Technically difficult study. Suboptimal exam.The left ventricular chamber size is normal. Wall thickness is increased consistent with mild concentric left ventricular hypertrophy. Normal left ventricular function. L V EF is estimated at 65%. There is E: A reversal of mitral inflow velocities consistent with diastolic dysfunction. M ild left atrial enlargement.Minimal mitral regurgitation. N o evidence of aortic valve regurgitation. M inimal tricuspid regurgitation. Minimal tricuspid regurgitation. N o evidence of pulmonic valve regurgitation [facility] (10/25/2008) Orders: Angelique KG ([id number]) Ayush Valdes MD office visit: H er updated medication list for this problem includes: Simcor 1000-20 Mg Tb24 (Niacin-simvastatin) ..... One po daily @ bedtime; take with aspirin BP today: 135/74 Prior BP: / () C HOL: 127 (03/25/2008) LDL: 42 (03/25/2008) HDL: 65 (03/25/2008) T (03/25/2008) Ayush Valdes MD office visit: H er updated medication list for this problem includes: Aspirin 81 Mg Tabs (Aspirin) ..... One tab. daily BP today: 135/74 Prior BP: / () N uclear Stress Findings: Normal myocardial perfusion without infarct or ischemia. Normal gated study with LVEF 58%. Normal resting EKG and blood pressure. Insignificant ST segment depression in the inferior leads and no ST segment depression in the lateral leads to suggest ischemia. (02/27/2005) C HOL: 127 (03/25/2008) LDL: 42 (03/25/2008) HDL: 65 (03/25/2008) T (03/25/2008) B UN: 11 (01/15/2008) Creat: 0.7 (01/15/2008) Na+: 140 (01/15/2008) K+: 3.9 (01/15/2008) Echocardiogram: TDS. Apical views. Normal LV systolic function. EF 60%. Mild diastolic dysfunction. Mild LAE. Trace PI. Trace TR. (05/19/2007) Ayush Valdes MD office visit: H er updated medication list for this problem includes: Diovan Hct Tabs (Valsartan-hydrochlorothiazide tabs) ..... 80/12.5 mg daily Aspirin 81 Mg Tabs (Aspirin) ..... One tab. daily BP today: 135/74 Labs Reviewed: C reat: 0.7 (01/15/2008) C hol: 127 (03/25/2008) HDL: 65 (03/25/2008) LDL: 42 (03/25/2008) T (03/25/2008) Ayush Valdes MD HISTORY OF PROCEDURES Procedure Date Procedure Name Provider Procedure Notes S tatus EKG Ayush Valdes MD completed SNOMED-CT: 13162655 Physical Exam, Performed: Pulse Exam of Foot Ayush Valdes MD completed SNOMED-CT: 431688682 192251 Current Medications Documented Ayush Valdes MD completed SNOMED-CT: 37190340 Physical Exam, Performed: Pulse Exam of Foot Ayush Valdes MD completed SNOMED-CT: 178378318 009551 Current Medications Documented Ayush Valdes MD completed SNOMED-CT: 15327218 Physical Exam, Performed: Pulse Exam of Foot Ayush Valdes MD completed EKG Ayush Valdes MD completed SNOMED-CT: 699444328 017737 Current Medications Documented Ayush Valdes MD completed EKG Ayush Valdes MD completed EKG Ayush Valdes MD completed EKG Ayush Valdes MD completed JORDANA Valdes MD completed JORDANA Valdes MD completed
--- OUTSIDE RECORDS SUMMARY | 2024-06-25 22:02 | XMS_ITS | Encounter Summary ---
Author Organization [facility] Address [address] [facility] [place] [address] Care Team Providers Care Product Demonstrator Name Role Phone Julio César Briseno MD Primary Care Provider [phone] Reason for Visit * Reason Onset Date Comments Update 09/02/2018 Encounter Details Date Type Department Care Team (Late st Contact Info) Description 09/02/2018 Telephone [facility] [address] [place] [id number] Anne-Marie Dobson MD [address] [place] [address] Update Social History Tobacco Use [...] Telephone Encounter - Luciano Stanley RN - 09/02/2018 4:16 PM CST She agrees to plan- already has hat. Will do , tomorrow, and . Leaving on her trip Saturday. She will try and call us with the info while traveling if she has down time. Otherwise, will call when she gets back w/ info. Grateful to Dr. Dobson for all her help. TINGS CONSERVATOR * Telephone Encounter - Anne-Marie Dobson MD - 09/02/2018 4:09 PM CST That is great to hear. Can you ask her to measure her urine volume overnight. So toss out when she goes to bed then measure the total for the rest of the night plus the first one in the morning when she gets up. I need the total. It may be that she produces too much at night and we could use DDAVP> TINGS CONSERVATOR * Telephone Encounter - Luciano Stanley RN - 09/02/2018 1:39 PM CST It took about 2 wks before the increase to 50mg Myrbetriq kicked in and she reports she did very well. Big difference. No accidents during the day and didn't have to get up thru the night. If she did, she made it to the toilet. Then recently - the last 3 nights- she feels she is somewhat back to where she was before increasing the Myrbetriq to 50mg. She's still able to stand w/o saturating her pad, but urine is already dribbling down her leg before she gets to the toilet. This happens about 3x/ night. During the day, she notices a little dribble in her underwear before she gets to the toilet. This is better than she was before. She also just started pottying herself every 2 hours since her last office visit. I enc'd her to try every 1.5 hours and see if this makes a difference. She agrees to plan. She wants to take Myrbetriq 50mg for another month and see how she does. She's not ready for Botox or the Interstim just yet. She will update us in a couple weeks when she gets to the end of the new Myrbetriq script. New rx sent. TINGS CONSERVATOR * Telephone Encounter - Hien Smith - 09/02/2018 11:45 AM CST Pt called in stating that Dr Dobson wanted her to call today to give a report on the myrbetriq and she stated that she seems to be doing well on it. She would like the nurse to call her back regarding if she should stay on it or what the plan is now? She leaves out of town on Saturday. Pt callback# [phone] TINGS CONSERVATOR documented in this encounter Plan of Treatment Not on file documented as of this encounter Visit Diagnoses Diagnosis Mixed incontinence- Primary Mixed incontinence urge and stress (male)(female) Dysuria documented in this encounter Care Teams Product Demonstrator Relationship Specialty Start Date End Date Julio César Briseno MD PCP - General 10/23/17 documented as of this encounter
--- OUTSIDE RECORDS SUMMARY | 2024-06-25 22:02 | XMS_ITS | Encounter Summary ---
Author Organization [facility] Address [address] [facility] [place] [address] Care Team Providers Care Spooler Rubber Strand Name Role Phone Julio César Briseno MD Primary Care Provider [phone] Reason for Visit * Reason Comments Urodynamics Encounter Details Date Type Department Care Team (Latest Contact Info) Description 02/19/2018 9:45 AM CDT Procedure visit [facility] [address] [facility] [address] [place] [address] Anne-Marie Dobson MD [address] [place] [address] Mixed incontinence ; DEVEN (stress urinary incontinence, female) Social History Tobacco [...] Sign Reading Time Taken Comments Blood Pressure 118/66 02/19/2018 10:00 AM CDT Pulse - - Temperature - - Respiratory Rate - - Oxygen Saturation - - Inhaled Oxygen Concentration - - Weight 83 kg (183 lb) 02/19/2018 10:00 AM CDT Height 160 cm (5' 3 ) 02/19/2018 10:00 AM CDT Body Mass Index 32.42 02/19/2018 10:00 AM CDT documented in this encounter Patient Instructions * Patient Instructions* Anne-Marie Dobson MD - 02/19/2018 11:01 AM CDT Take you meds at night It is rare to experience any difficulty emptying your bladder but it can happen. It is temporary. You should urinate every 2-4 hrs today. If it has been more than 4 hrs since you have gone you should call us. If you are going just dribbles and or feel you are not empty you should call us day of night,. Day number is [phone] and after hrs is [phone] You should take 1 antibiotic now and one tonight. Call in 1 week to report how it is doing. You should note an improvement straight away. If you need more we usually wait at least a month. documented in this encounter Procedure Notes * Anne-Marie Dobson MD - 02/22/2018 7:35 PM CDTAssociated Order(s): PROC COLLAGEN IMPLANT URETHRAL INJ MATERIAL Procedure(s): WY ENDOSCOPIC INJECTION/IMPLANT; WY SYNTHETIC IMPLNT URINARY 1ML Pre-Procedure Diagnose(s): DEVEN (stress urinary incontinence, female) Periurethral Bulking Procedure Note Pre-Operative Diagnosis: Stress incontinence (N39.3) ISD (N36.42) - leak point pressure of 65 Hypomobility of urethra Post-Operative Diagnosis: same Indications: [...] of material used was 1.7 cc of COAPTITE:[id number]. The lot number was [id number]. She tolerated the procedure and was allowed [...] bladder had erythema as did her urethra * Anne-Marie Dobson MD - 02/22/2018 7:25 PM CDTAssociated Order(s): PROC URODYNAMICS Procedure(s): WY COMPLEX CYSTOMETROGRAM; WY URINE FLOW MEASUREMENT Pre-Procedure Diagnose(s): Mixed incontinence Multichannel Urodynamic Testing - Procedure Note Pre-Operative [...] air-charged catheter was place into the vagina orinto the rectum if the pelvic prolapse required [...] VLPP at 150 cc: [address] [facility] : Urethral pressure profilometry (UPP): Maximal urethral closure pressure (MUCP): nd Leakage amount: large and at [facility] Voiding study (VS): Volume voided: 226 Maximal flow rate: 29 Valsalva void: yes Assessment and Plan: Mixed incontinence with both stress and detrusor overactivity. She is on OAB med and that has helped but still leaking. Coaptite done today and clearly explained to pt and her daughter the mixed nature and correcting the deven may also help her her urge in 50% cases. documented in this encounter Plan of Treatment Not on file documented as of this encounter Procedures Procedure Name Priority Date/Time Associated Diagnosis Comments WY ENDOSCOPIC INJECTION/IMPLANT Routine 02/22/2018 7:36 PM CDT DEVEN (stress urinary incontinence, female) WY SYNTHETIC IMPLNT URINARY 1ML Routine 02/22/2018 7:36 PM CDT DEVEN (stress urinary incontinence, female) WY COMPLEX CYSTOMETROGRAM Routine 02/22/2018 7:34 PM CDT Mixed incontinence WY URINE FLOW MEASUREMENT Routine 02/22/2018 7:34 PM CDT Mixed incontinence documented in this encounter Results * WY SYNTHETIC IMPLNT URINARY 1ML, WY ENDOSCOPIC INJECTION/IMPLANT (02/22/2018 7:36 PM CDT) Narrative [...] A 15 degree rigid cystoscopy using the Radius injection system was used with a non-coring disposable needle to apply the material. It was placed in 2 points, at 4,6 o'clock. There was good hemostasis. The total amount of material used was 1.7 cc of COAPTITE:[id number]. The lot number was [id number]. She tolerated the procedure and was allowed [...] Dobson MD PROCEDURE/MINOR SURG ICAL ORDERABLES * WY URINE FLOW MEASUREMENT, WY COMPLEX CYSTOMETROGRAM (02/22/2018 7:34 PM CDT) Narrative [...] VLPP at 150 cc: [address] [facility] : ?? Urethral pressure profilometry (UPP): Maximal urethral closure pressure (MUCP): nd Leakage amount: large and at [facility] Voiding study (VS): Volume voided: 226 Maximal [...] documented in this encounter Visit Diagnoses Diagnosis Mixed incontinence- Primary Mixed incontinence urge and stress (male)(female) DEVEN (stress urinary incontinence, female) Female stress incontinence documented in this encounter Care Teams Spooler Rubber Strand Relationship Specialty Start Date End Date Julio César Briseno MD PCP - General 10/23/17 documented as of this encounter
--- OUTSIDE RECORDS SUMMARY | 2024-06-25 22:02 | XMS_ITS | Encounter Summary ---
Author Organization [facility] Address [address] [facility] [place] [address] Care Team Providers Care Flagstone Layer Name Role Phone Julio César Briseno MD Primary Care Provider [phone] Reason for Visit * Reason Onset Date Comments Refill Request 11/28/2017 Appointment 11/28/2017 Encounter Details Date Type Department Care Team (Late st Contact Info) Description 11/28/2017 Telephone [facility] [address] [place], [place] [id number] Anne-Marie Dobson MD [address] [place] [address] Refill Request; Appointment Social History Tobacco Use Types Packs/Day [...] Telephone Encounter - Sandhya Gomez RN - 11/28/2017 11:00 AM CDT RTC to pt. I told her that I sent the refill on her toviaz 4 mg. To her pharmacy as per her request. I told her that I saw in the note from Dr. Dobson she was supposed to be scheduled for a uro/coaptite procedure in November. She said when she checked out that day that the person checking her out was supposed to call her with an appt. Date/time, and she never heard from anyone. I apologized for that I told her that the first time avail. For this procedure with Dr. Dobson is02/19 at 11:00. Pt. Accepts this appt. Time, I told her I would forward to Dr. Dobson and also put her on a move up list as well. She is thankful for this. * Telephone Encounter - Angelica Helton - 11/28/2017 10:32 AM CDT Pt needs a refill on Toviaz. Pt was told she would get a call to setup a procedure for bladder but hasn't got a call yet. Pharmacy info.: [facility] [phone] documented in this encounter Plan of Treatment Not on file documented as of this encounter Visit Diagnoses Not on filedocumented in this encounter Care Teams Flagstone Layer Relationship Specialty Start Date End Date Julio César Briseno MD PCP - General 10/23/17 documented as of this encounter
--- OUTSIDE RECORDS SUMMARY | 2024-06-25 22:02 | XMS_ITS | Encounter Summary ---
Author Organization [facility] Address [address] [facility] [place] [address] Care Team Providers Care Rehab Nurse Name Role Phone Julio César Briseno MD Primary Care Provider [phone] Reason for Visit * Reason Onset Date Comments Update 06/05/2018 Encounter Details Date Type Department Care Team (Late st Contact Info) Description 06/05/2018 Telephone [facility] [address] [place] [address] Anne-Marie Dobson MD [address] [place] [address] Update Social History Tobacco Use [...] Telephone Encounter - Luciano Stanley RN - 06/16/2018 1:44 PM CST Pt agrees to plan. She just ask pharmacy to reorder Vesicare. I explained you will only be on Sanctura for now. Goodrx card put in the mail in case insurance won't pay- one month = $38.[address] [facility]. ICE OR WORK DISPATCHER CHIEF * Telephone Encounter - Anne-Marie Dobson MD - 06/15/2018 2:12 PM CST Pt has mixed so she needs to try different med. From what I can see she has tried toviaz and Vesicare. I sent in sanctura 20 mg 2 x daily. She should let us know in about 3-4 weeks. I would nor repeat coaptite at this time. ICE OR WORK DISPATCHER CHIEF * Telephone Encounter - Luciano Stanley RN - 06/05/2018 2:52 PM CST She has had one caffeinated soda since 05/27. No real relief if she doesn't drink them. She finds she can't get to the bathroom quick enough. She is back to wearing depends right now while she is traveling. She wears regular pads at home now. She would like another coapptite if possible. PLAN: Gave her a tentative appt 08/13. Will forward to Dr. Dobson to confirm or if she wants something else. ICE OR WORK DISPATCHER CHIEF * Telephone Encounter - Hien Smith - 06/05/2018 9:18 AM CST Pt called in stating that she was supposed to call today to give us an update on her bladder. She would like to speak to the nurse or Dr Dobson. Pt callback# [phone] ICE OR WORK DISPATCHER CHIEF documented in this encounter Plan of Treatment Not on file documented as of this encounter Visit Diagnoses Not on filedocumented in this encounter Care Teams Rehab Nurse Relationship Specialty Start Date End Date Julio César Briseno MD PCP - General 10/23/17 documented as of this encounter
--- OUTSIDE RECORDS SUMMARY | 2024-06-25 22:03 | XMS_ITS | Clinical Summary ---
Author Organization [facility] Address [address] [place] [address] Care Team Providers Care Automotive Technician Name Role Phone Julio César Briseno MD Primary Care Provider [phone] Eren Lund MD Unavailable [phone] Yohana Bowen MD Unavailable Alejo Mi MD Unavailable [phone] Allergies Active Allergy Reactions Criticality Noted Date Comments Ezetimibe-Simvastatin Muscle pain,Other (See comments),Unknown Medium 01/11/2012 Muscle weakness Morphine Blisters,Rash High 11/20/2020 Ramipril Cough Low 12/30/2017 Medications simvastatin (ZOCOR) 20 mg tablet Take 1 tablet (20 mg total) by mouth nightly Active ostomy supplies [facility] Patient has colostomy and needs Cavilon 3M skin barrier film to manage. 20 each 6 09/21/19 20 Active loperamide HCl (IMODIUM A-D ORAL)Indicatio ns:diarrhea Take 1 tablet by mouth daily as needed (diarrhea) Patient takes 6-8 tablets a day. 11/24/19 21 Active denosumab (Xgeva) 120 mg/1.7 mL (70 mg/mL) injection Inject 1.7 mL (120 mg total) under the skin every 28 (twenty-eight) days Active octreotide (SandoSTATIN) 100 mcg/mL injection Inject 1 mL (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) under the skin every 30 (thirty) days Last dose 11/15/22 Active lidocaine-pril ocaine (lidocaine-emanuel locaine) creamIndicatio ns:Neuro-endoc rine carcinoma (HCC) Apply topically as needed for pain Apply a generous amount topically to port site 1 hour prior to lab/treatment, do not rub in, and cover with non absorbant dressing 30 g 3 09/20/19 22 Active prochlorperazi ne (COMPAZINE) 10 mg tabletIndicati ons:Cancer Chemotherapy-I nduced Nausea and Vomiting Take 1 tablet (10 mg total) by mouth every 6 (six) hours as needed for nausea 60 tablet 3 03/23/20 22 Active Additional Information Patient taking differently:10 mg oral Every 6 hours PRN,nausea, vomiting, Indications: Cancer Chemotherapy-Induced Nausea and Vomiting, Informant: Self, Reported on 11/21/2022 cholecalcifero l (VITAMIN D-3) 1,000 unit Take 1 tablet/capsule (1,000 Units total) by mouth daily 90 tablet/caps ule 3 11/17/19 23 Active Additional Information Patient taking differently:1,000 Units oralEvery morning, Indications: supplement, Informant: Self, Reported on 11/21/2022 amLODIPine (NORVASC) 5 mg tablet 09/25/19 24 Active levothyroxine (SYNTHROID) 100 mcg tabletIndicati ons:Hypothyroi dism, unspecified type Take 1 tablet (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) by mouth mold sprayer before breakfast 90 tablet 3 11/28/19 24 025 Active ondansetron (ZOFRAN) 8 mg tabletIndicati ons:CINV (chemotherapy- induced nausea and vomiting) TAKE 1 TABLET EVERY 8 HOURS NEEDED FOR NAUSEA OR VOMITING 90 tablet 11 03/18/20 24 Active oxyBUTYnin (DITROPAN) 5 mg tablet Take 1 tablet (5 mg total) by mouth 2 (two) times a day Active DULoxetine DR (CYMBALTA) 30 mg capsule Take 1 capsule (30 mg total) by mouth daily Active oxyBUTYnin (DITROPAN) 5 mg tablet Take 1 tablet (5 mg total) by mouth 3 (three) times a day as needed (flank pain or bladder pain) 20 tablet 06/20/20 24 Active ascorbic acid, vitamin C, 500 mg capsuleIndicat ions:supplemen t Take 1 tablet by mouth mold sprayer before breakfast 07/04/20 16 Discontinued(S top Taking at Discharge) coenzyme Z92-hwasnok E 100-5 mg-unit capsuleIndicat ions:supplemen t Take 1 tablet by mouth mold sprayer before breakfast Discontinued(S top Taking at Discharge) clotrimazole-b etamethasone (LOTRISONE) cream Apply 1 Application topically daily as needed (rash) Discontinued(S top Taking at Discharge) fluticasone propionate (FLONASE) 50 mcg/actuation nasal sprayIndicatio ns:Allergic Rhinitis Administer 2 sprays into each nostril daily as needed for rhinitis or allergies Discontinued(S top Taking at Discharge) montelukast (SINGULAIR) 10 mg tablet Take 1 tablet (10 mg total) by mouth as needed (allergies) Discontinued diphenoxylate- atropine (LOMOTIL) 2.5-0.025 mg per tabletIndicati ons:Chemothera py-Induced Diarrhea Take 1 tablet by mouth 4 (four) times a day as needed for diarrhea 90 tablet 02/15/20 21 Discontinued(S top Taking at Discharge) LORazepam (ATIVAN) 0.5 mg tabletIndicati ons:MRI scan Take 1 tablet 1 hour prior to MRI exam, may repeat dose if needed 15 minutes prior to MRI 2 tablet 08/21/19 22 Discontinued(S top Taking at Discharge) 0.9 % sodium chloride ([facility] sodium chloride 0.9%) injectionIndic ations:line care Infuse 10 mL into a venous catheter once a week On saturday Discontinued(S top Taking at Discharge) heparin 100 unit/mL solutionIndica tions:Maintain Patency of Indwelling Vascular Catheter Infuse 5 mL (500 Units total) into a venous catheter once a week Fluids every -Hepar in to flush Discontinued(S top Taking at Discharge) sodium chloride 0.9 % solutionIndica tions:hydratio n Infuse 1,000 mL into a venous catheter once a week Patient to infuse 1000mL of Normal Saline via CADD Coreas pump set at 300mL/Hr once weekly.- Saturday09/15/19 23 024 Discontinued(S top Taking at Discharge) 0.9 % sodium chloride (sodium chloride 0.9%) 0.9% infusion 05/22/20 23 024 Discontinued(S top Taking at Discharge) losartan (COZAAR) 25 mg tablet Take 1 tablet every day by oral route. 07/10/19 24 024 Discontinued(S top Taking at Discharge) ergocalciferol (VITAMIN D) 50,000 unit capsuleIndicat ions:Vitamin D Deficiency Take 1 capsule (50,000 Units total) by mouth once a week for 12 doses 12 capsule 2 12/24/19 24 024 Discontinued(S top Taking at Discharge) amoxicillin 500 mg capsule TAKE 4 CAPSULES BY MOUTH 1 HOUR BEFORE APPOINTMENT 01/27/20 Discontinued(S top Taking at Discharge) ipratropium (ATROVENT) 42 mcg (0.06 %) nasal spray [place] 1 spray twice a day by nasal route for 13 days. 04/28/20 24 Discontinued Active Problems Problem Noted Date Diagnosed Date Exertional dyspnea 06/17/2024 Assessment & Plan (06/18/2024 10:44 AM FABRIC INSPECTOR): Reports noting increased exertional dyspnea over last year or so. Nt-probnp elevated on admission - TTE with grade 1 diastolic dysfunction, thickened LV but otherwise normal systolic function EF 66% and normal valvular function ANNE-MARIE (acute kidney injury) (H [facility]) and Mild right hydroureteronephrosis 06/14/2024 Assessment & Plan (06/20/2024 11:38 PM FABRIC INSPECTOR): Cr b/l is 1.3-1.5. It is 2 -> 1.7 in the ED. She has had very low PO intake for 24h. She has had decreased PO intake for a few months (and receives IVF infusion outpatient). CT a/p shows mild R hydroureteronephrosis, which as per report could be from a partial obstruction from lymphadenopathy. Ddx: pre-renal vs obstructive iso right hydro. UA not c/f infection -s/p 1L bolus in the ED followed by 100 mL/h -Urology c/s; Given lack of improvement/up trending creatinine despite fluids, performed right ureteral stent placement 06/16 - creatinine improved to baseline - repeat renal US with resolved hydro. and KUB with stent in appropriate location 06/18 -mild hematuria post stent which has now resolved Vomiting 06/14/2024 Assessment & Plan (06/17/2024 3:29 PM FABRIC INSPECTOR): Likely related to ANNE-MARIE and R ureteral process. -Improved and tolerating oral intake -PPI IV BID->oral BID for now. -Nausea control. Pain control. HTN (hypertension) 06/14/2024 Assessment & Plan (06/20/2024 11:37 PM FABRIC INSPECTOR): Home amlodipine. Losartan held throughout admission due to ANNE-MARIE and blood pressure reasonably controlled on amlodipine. Can consider restarting outpatient if uptrend noted Anxiety 06/14/2024 Assessment & Plan (06/14/2024 3:48 PM FABRIC INSPECTOR): She reports taking duloxetine 30 daily for over a year. Will continue that 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 01/2024 High risk medication use 01/31/2024 Hypothyroidism 09/12/2023 Assessment & Plan (06/14/2024 3:47 PM FABRIC INSPECTOR): Home synthroid Proctitis 04/09/2022 Assessment & Plan (04/09/2022 11:58 PM CDT): Presented with 1 day of severe rectal pain and the sensation of needing to defecate. Took miralax and suppository at home without improvement. Suspect secondary to underlying malignancy and possible study drug, less likely infectious given lack of BMs -Will attempt to collect stool culture and C.diff if having loose stool -Empiric Vanc/Cefe/Flagyl given in ED and will consolidate to CTX and Flagyl -Pain control with PRN Oxycodone 5 mg q6 hr first line and PRN hydromorphone 0.5 mg q2 hr second line -Consider GI vs CRS consult in AM -Low concern for STI, holding off on testing at this time Thrombocytopenia 04/09/2022 Assessment & Plan (04/09/2022 11:57 PM CDT): Stable and secondary to malignancy -Platelets of 113 on admit Dehydration 03/15/2022 Depressive disorder 02/15/2022 Hypomagnesemia 10/16/2021 Hearing loss 08/30/2021 Vertigo 08/30/2021 Muscle weakness 08/16/2021 Nausea 08/11/2021 Hypophosphatemia 06/14/2021 Closed displaced fracture of head of right radiu s 11/20/2020 Overview (11/20/2020): Added automatically from request for surgery [id number] 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 Overview (05/24/2020): Added automatically from request for surgery [id number] Colostomy complication, unspecified 04/14/2020 Right flank pain 01/13/2020 Assessment & Plan (06/17/2024 3:27 PM FABRIC INSPECTOR): 3 days of R flank/CVA pain. UA not c/f infection. Might be from mild obstruction vs could have been a stone which has passed. CT abdomen shows new mild hydroureteronephrosis possible secondary to partial obstruction from retroperitoneal adenopathy -Pain control w/ tylenol, lido patch, ok for low dose opioids. -Management as per above -pain improved with stent placement Benign essential hypertension 01/13/2020 Assessment & Plan (04/10/2022 12:00 AM CDT): Home Benicar 20-12.5 mg (half tablet qday) held given not on formulary -Will start Losartan [address] of Olmesartan 10 mg qday due to inpatient formulary -Holding home HCTZ for now, can add back on if needed Blepharitis 01/13/2020 Cough 01/13/2020 Diarrhea 01/13/2020 Enthesopathy of knee 01/13/2020 Vitamin D deficiency 01/13/2020 Knee pain 01/13/2020 Low back pain 01/13/2020 Mass of ovary 01/13/2020 Osteoarthritis of knee 01/13/2020 Pure hypercholesterolemia 01/13/2020 Shoulder joint pain 01/13/2020 Epithelial hyperplasia 07/22/2019 Overview (07/22/2019): Added automatically from request for surgery [id number] Colostomy in place ([facility]) 05/14/2019 Assessment & Plan (04/09/2022 11:49 PM CDT): Secondary to neuroendocrine tumor of ileum, 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 Received denosumab 03/30 120mg SQ. Ca on presentation to [facility] 8.2; following surgical procedure, Ca acutely dropped to 6.4 (7.2 corrected for albumin) with ANNE-MARIE. 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 Unclear cause of acute drop following surgery -> possibly exacerbated by decrease in GFR vs phosphorus supplementation. No blood products documented intraop. PTH appropriately elevated. She has had intermittently elevated iCa and has corrected calcium in the upper end of normal range. Will discontinue calcium supplementation as we anticipate that she will become hypercalcemic again. Recs: - Discontinue tums (1000 mg elemental calcium) - Continue on cholecalciferol 5000 units every day while hospitalized. Upon discharge, reduce to cholecalciferol 2000 units every day - Can consider Zometa as part of the treatment for bone health in the setting bone metastasis in a future. Would not use denosumab again. Assessment & Plan (04/21/2019 3:14 PM CDT): History of elevated serum Ca to 11.1, thought 2/2 metastatic bony disease. Received denosumab 03/30 120mg SQ. Ca on presentation to [facility] 8.2; following surgical procedure, Ca acutely dropped to 6.4 (7.2 corrected for albumin) with ANNE-MARIE. 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 Unclear cause of acute drop following surgery -> possibly exacerbated by decrease in GFR vs phosphorus supplementation. No blood products documented intraop. Asymptomatic but severe drop. PTH appropriately elevated. Today: iCa: 5.16 ,afternoon oscal dose was held--> this morning 4.95. Currently she continues on oscal 1000 mg elemental calcium TID and cholecalciferol 5000 units every day. 25 OH vitamin D: 34 Recs: - Decrease tumbs to 2500 (1000 mg elemental calcium) every day - Continue on cholecalciferol 5000 units every day while hospitalized. Upon discharge, reduce to cholecalciferol 2000 units every day - Denosumab induced hypocalcemia may require significant po supplementation at discharge; recommend against scheduled repeat dose. Can consider Zometa as part of the treatment for bone health in the setting bone metastasis in a future. Assessment & Plan (04/20/2019 3:14 PM CDT): History of elevated serum Ca to 11.1, thought 2/2 metastatic bony disease. Received denosumab 03/30 120mg SQ. Ca on presentation to [facility] 8.2; following surgical procedure, Ca acutely dropped to 6.4 (7.2 corrected for albumin) with ANNE-MARIE. 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 Unclear cause of acute drop following surgery -> possibly exacerbated by decrease in GFR vs phosphorus supplementation. No blood products documented intraop. Asymptomatic but severe drop. PTH appropriately elevated. Today: iCa: 4.93, corrected calcium: corrected Ca: 9.8. Asymptomatic for hypocalcemic symptoms. Currently she continues on oscal 1000 mg elemental calcium TID and cholecalciferol 5000 units every day. - Recommend to continue the same regimen for now and check iCA and CMP tomorrow as we may need to adjust her current calcium and vitamin D supplements. - Denosumab induced hypocalcemia may require significant po supplementation at discharge; recommend against scheduled repeat dose Assessment & Plan (04/16/2019 11:24 AM CDT): History of elevated serum Ca to 11.1, thought 2/2 metastatic bony disease. Received denosumab 03/30 120mg SQ. Ca on presentation to [facility] 8.2; following surgical procedure, Ca acutely dropped to 6.4 (7.2 corrected for albumin) with ANNE-MARIE. 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 Unclear cause of acute drop following surgery -> possibly exacerbated by decrease in GFR vs phosphorus supplementation. No blood products documented intraop. Asymptomatic by severe drop. PTH appropriately elevated. Her calcium is now stable. Calcium drip has been on since yesterday evening. - Can continue off drip for now. Would recommend to continue to monitor at least q12H for the next day or two and if it appears stable we can check less frequently. - On home vitamin D supplementation - Denosumab induced hypocalcemia may require significant po supplementation at discharge; recommend against scheduled repeat dose Stage 3b chronic kidney disease 04/14/2019 Assessment & Plan (04/09/2022 11:57 PM CDT): Baseline Cr 0.9-1.2, at baseline on admission Assessment & Plan (04/17/2019 8:03 AM CDT): Now appears resolved with normalized creatinine; however UOP appears low despite aggressive volume resuscitation. - Recommend continued monitoring Assessment & Plan (04/16/2019 11:22 AM CDT): Now appears resolved. 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 Lund in medical oncology, currently on Cabinet study with cycle 9 on 03/22/2022 -Holding home study drug (cabozantinib/placebo) -Med onc consult in AM Assessment & Plan (04/24/2019 10:59 AM CDT): Neuroendocrine tumor with bone mets. Received denosumab and found to have hypocalcemia. Would not use denosumab again given high risk for hypocalcemia. Can consider zometa if needed in the future. Plan for hypocalcemia as documented elsewhere. Obesity with body mass index 30 or greater 09/01 Family history of malignant neoplasm of other organs or systems 06/29/2015 Family history of melanoma 06/29/2015 Abnormal findings on diagnostic imaging of breas t 06/07/2014 Encounters Date Type Department Care Team Description 06/23/2024 Telephone [facility] [address] [place] [address] Dorota Rogers, [place] 06/23/2024 Orders Only [facility] [address] [facility] 5th [place] [phone] Alejo Mi MD Stage 3b chronic kidney disease (HCC) (Primary Dx); Hypomagnesemia; Benign essential hypertension; Acute cystitis with hematuria; Anemia, unspecified type; Elevated PTHrP level 06/22/2024 Orders Only [facility] [address] [place] [phone] Eren Lund MD Neuroendocrine carcinoma (HCC) (Primary Dx); 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) 06/22/2024 Telephone [facility] [address] [place] [phone] Eren Lund MD exchange call/ER follow up 06/22/2024 Telephone [facility] [address] [place] [address] Dorota Rogers, [place] 06/21/2024 Telephone [facility] [address] [place] [phone] Shaniqua Lawrence RN 06/17/2024 Orders Only [facility] [address] [facility] Floor 5 [place] [phone] Claude Browning MD 06/17/2024 Orders Only [facility] [address] [place] [address] Dorota Rogers RN 06/16/2024 3:00 PM FABRIC INSPECTOR Anesthesia Event [facility] Operating Room [address] [place] [address] Elissa Rosales MD Jaffer, Danish, MD 06/16/2024 2:37 PM FABRIC INSPECTOR - 06/16/2024 3:52 PM FABRIC INSPECTOR Surgery [facility] [address] [place] [address] Mela Dejesus MD CYSTOSCOPY 06/16/2024 Telephone [facility] [address] [place] [address] Juice Garcia RN 06/13/2024 10:27 PM FABRIC INSPECTOR - 06/20/2024 1:30 PM FABRIC INSPECTOR Hospital Encounter [address] [phone] Stu Huang MD Tan, Benjamin R., MD Ma, MD Juan Huffman Amrat, MD Pirzada, Dana [place] MD ANNE-MARIE (acute kidney injury) (HCC) (Primary Dx); 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; History of malignant neuroendocrine tumor; 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) Discharge Disposition: Discharge to home or self care 06/13/2024 4:24 PM FABRIC INSPECTOR - 06/13/2024 11:59 PM FABRIC INSPECTOR Hospital Encounter [facility] ([facility]) [address] [place] [phone] Dehydration (Primary Dx); Nausea; Hypertension, unspecified type Discharge Disposition: Discharge to home or self care 06/13/2024 Telephone [facility] Floor [address] [place] [address] Sunshine George RN Vomiting 06/12/2024 Orders Only [facility] Floor [address] [place] [address] Claude Browning MD 06/11/2024 Telephone [facility] [address] [place] [address] Dorota Rogers, [place] 06/10/2024 Orders Only [facility] [address] [place] [address] Eren Lund MD Neuroendocrine carcinoma (HCC) (Primary Dx); 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) 06/09/2024 2:15 PM FABRIC INSPECTOR Infusion [facility] - Infusion [address] [facility] Floor [address] [place] [address] 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 Dx); Neuroendocrine carcinoma (HCC); Neuro-endocrine carcinoma (HCC); 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) 06/09/2024 1:15 PM FABRIC INSPECTOR Clinical Support [facility] - Lab Collection [address] [facility] Floor [address] [place] [address] Neuroendocrine carcinoma (HCC); 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) 06/09/2024 11:00 AM FABRIC INSPECTOR Office Visit [facility] Floor [address] [place] [phone] Claude Browning MD Neuroendocrine carcinoma (HCC) (Primary Dx); 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) 06/09/2024 Orders Only [facility] Floor [address] [place] [address] Claude Browning MD Neuroendocrine carcinoma (HCC) (Primary Dx) 06/08/2024 Telephone [facility] [address] [place] [address] Dorota Rogers, [place] 05/29/2024 10:45 AM FABRIC INSPECTOR Office Visit [facility]at[facility] [address] [facility] [address] [place] [phone] Po Newberry MD PhD Actinic keratosis (Primary Dx); Purpura (HCC); Family history of melanoma; Seborrheic keratosis; Multiple benign nevi; Milia 05/29/2024 Telephone [facility] [address] [facility] Floor [address] [place] [address] Renay Renee RN 05/26/2024 9:00 AM FABRIC INSPECTOR Consult [facility] Oncology at [address] [phone] Yohana Bowen MD Neuro-endocrine carcinoma (HCC); 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); 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) 05/26/2024 Telephone [facility]fusion Pharmacy [address] [facility] Floor [address] [place] [address] Callie Yousif CPhT 05/22/2024 Orders Only [facility] [address] [place] [phone] Eren Lund MD Neuroendocrine carcinoma (HCC) (Primary Dx); 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) 05/21/2024 9:00 AM FABRIC INSPECTOR Office Visit [facility], Interventional Radiology [address] [facility] [address] [place] [address] Mikey Meraz MD Stage 3b chronic kidney disease (HCC) (Primary Dx); Neuro-endocrine carcinoma (HCC); 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); 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); 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); Anemia due to stage 3a chronic kidney disease (HCC) 05/15/2024 Telephone [facility] at [facility] [address] [phone] Yohana Bowen MD 05/14/2024 Documentation [facility] [address] [facility] Floor [address] [place] [address] Idania Pat CMA CABOMETYX PA 05/13/2024 Orders Only [facility] [address] [place] [phone] Eren Lund MD Neuro-endocrine carcinoma (HCC) (Primary Dx) 05/13/2024 Orders Only [address] [phone] Eren Lund MD 05/13/2024 Orders Only [facility] [address] [place] [phone] Eren Lund MD 05/13/2024 Orders Only [facility] [address] [place] [phone] Eren Lund MD Neuroendocrine carcinoma (HCC) (Primary Dx); 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) 05/13/2024 Orders Only [facility] [address] [place] [phone] Eren Lund MD 05/13/2024 Telephone [facility] [address] [place] [address] Dorota Rogers RN 05/13/2024 Telephone [facility] [address] [place] [address] Dorota Rogers, RN 05/13/2024 Orders Only [address] [phone] Yoana Murray [facility] [facility] 05/12/2024 11:45 AM FABRIC INSPECTOR Infusion [address] [phone] 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 Dx); Neuroendocrine carcinoma (HCC); Neuro-endocrine carcinoma (HCC); 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) 05/12/2024 10:45 AM FABRIC INSPECTOR Office Visit [facility] [address] [place] [phone] Eren Lund MD Neuro-endocrine carcinoma (HCC) (Primary Dx); 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); 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) 05/12/2024 10:00 AM FABRIC INSPECTOR Clinical Support [address] [address] Neuro-endocrine carcinoma (HCC); Neuroendocrine carcinoma (HCC); 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); Research study patient 05/12/2024 Orders Only [facility] [address] [place] [phone] Eren Lund MD 05/12/2024 Orders Only [facility] [address] [place] [phone] Eren Lund MD 05/08/2024 Orders Only [facility] [address] [place] [phone] Eren Lund MD Research study patient (Primary Dx) 05/06/2024 8:06 AM CDT - 05/06/2024 11:59 PM CDT Hospital Encounter [facility] [address] [place] [phone] Eren Lund MD Neuroendocrine carcinoma (HCC) Discharge Disposition: Discharge to home or self care 04/30/2024 Orders Only [facility] Health Information Management [address] [place] [address] Scanning, Provider 04/14/2024 12:15 PM CDT Research Med Pick-Up/CTRU Hazardous Substances Scientist [address] [phone] Neuro-endocrine carcinoma (HCC) (Primary Dx) 04/14/2024 11:45 AM CDT Infusion [address] [phone] 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 Dx); Neuroendocrine carcinoma (HCC) 04/14/2024 10:45 AM CDT Office Visit [facility] [address] [place] [phone] Eren Lund MD Neuroendocrine carcinoma (HCC) (Primary Dx); Neuro-endocrine carcinoma (HCC); 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); Neuroendocrine carcinoma (CMS/HCC) (HCC) 04/14/2024 10:00 AM CDT Clinical Support [address] [place] [address] Neuro-endocrine carcinoma (HCC); Neuroendocrine carcinoma (HCC); 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 Floor [address] [place] [address] Hien Jaimes, [facility] 04/03/2024 Orders Only [facility] [address] [place] [phone] Eren Lund MD Neuroendocrine carcinoma (HCC) (Primary Dx) from Last 3 Months Immunizations Name Administration Dates Next Due Influenza, Quadrivalent, Fransisca l Culture-based MDCK, Preservative Free, Antibiotic Free, Intramuscular 04/21/2018 Influenza, Quadrivalent, Hig h Dose, Preservative Free, Intrr 03/21/2020 Influenza, Trivalent, High D ose, Split, Preservative Free, Intramuscular 05/04/2019,04/16/2019,04/09/2017,05/29 Influenza, Unspecified 06/11/2018,03/08/2015,04/2014 Moderna SARS-CoV-2 Monovalen t Vaccination (12+ YRS) 03/08/2021,09/26/2020,08/25/2020 Pneumococcal Conjugate PCV 13 07/12/2020, 016 Pneumococcal Polysaccharide PPV23 05/26/2015 Tdap 11/20/2020 ZOSTER LIVE 05/27/2015,05/26/2015 Surgical History Surgery Date Site/Laterality Comments TONSILLECTOMY 07/08/1955 - 07/07/1956 Tonsillectomy - (Added by TW Conv) GALLBLADDER SURGERY unknown date TOTAL ABDOMINAL HYSTERECTOMY 07/08/1991 - 07/07/1992 appendix removed during this procedure IR PICC LINE PLACEMENT > 5 YEARS 12/23/2018 N/A IR PICC LINE PLACEMENT > 5 YEARS 02/17/2019 N/A EXPLORATORY LAPAROTOMY 04/13/2019 Exploratory laparotomy with creation of divided loop colostomy RIGHT COLECTOMY 10/03/2015 Right colectomy IR PICC LINE PLACEMENT > 5 YEARS 06/09/2019 N/A IR PICC LINE PLACEMENT > 5 YEARS 08/04/2019 N/A TOTAL KNEE ARTHROPLASTY 07/08/2014 - 07/07/2015 Left EXAMINATION UNDER ANESTHESIA 05/30/2020 Examination under anesthesia and fulguration of pseudo epithelial hyperplasia PORT PLACEMENT CHEST >5 YEARS 09/14/2021 N/A CONTRAST INJECTION EVALUATIO N CENTRAL VENOUS ACCESS DEVICE 06/12/2022 N/A CONTRAST INJECTION EVALUATIO N CENTRAL VENOUS ACCESS DEVICE 09/04/2022 N/A OMENTECTOMY 10/03/2015 Partial APPENDECTOMY 07/08/1991 - 07/07/1992 BILATERAL SALPINGOOPHORECTOMY 10/03/2015 BIOPSY 10/03/2015 Peritoneal COLONOSCOPY 07/08/2015 - 08/07/2015 STOMA REVISION 07/08/2019 - 08/07/2019 Fulguration of parastomal hyperplasia BIOPSY LIVER 06/19/2024 N/A EMBOLIZATION ORGAN ISCHEMIA OR INFARCTION 06/19/2024 N/A Medical History Medical History Date Comments History of hemorrhoids History o f hemorrhoids - (Added by TW Conv) Hypercholesteremia Hypertension History of neuroendocrine cancer 07/2015 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, omentum, bone, and vaginal cuff, 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 s/p colectomy/BSO/partial omentectomy 09/2015 Motion sickness PONV (postoperative nausea and vomiting) controlled with IV medication Family history of malignant hyperthermia grandson - questionable GERD (gastroesophageal reflux disease) Status post chemotherapy 09/2019 immunot herapy Status post radiation therapy 09/2019 Generalized headaches Arthritis HL (hearing loss) 2013 Obesity Family History Medical History Relation Name Comments Hypertension Brother Jose F Melanoma Daughter Suicidality Father 39 Family history of suicide - (Added by TW Conv) Anesthesia problems Grandchild question able malignant hyperthermia, no work up at this time Hearing loss Mother 101 Heart disease Mother 101 Hypertension Mother 101 old age Mother 101 Breast cancer Sister 1 Adenocarcinoma of breast - (Added by TW Conv) Cancer Sister 2 Anuradha Diabetes Sister 2 Anuradha Hypertension Sister 2 Anuradha Relation Name Status Comments Brother Jose F Daughter Father 39 Grandchild Alive Mother 101 Sister 1 Sister 2 Anuradha Social History Tobacco Use Types Packs/Day Years Used Date Smoking Tobacco: Never Smokeless Tobacco: Never Tobacco Cessation:Counseling Given: Not Answered Alcohol Use Standard Drinks/Week Comments Yes 1 (1 standard drink = 0.6 oz pur e alcohol) OASIS D0700: Social Isolation Answer Da te Recorded Frequency of experiencing loneliness or isolatio n Never 05/08/2023 OASIS A1250: Transportation Answer Date Recorded Lack of Transportation (Medical) No 11/07/2022 Lack of Transportation (Non-Medical) No 11/07/2022 Patient Unable or Declines to Respond No 11/07/2022 OASIS B1300: Health Literacy Answer Minesh e Recorded Frequency of needing help to read materials from doctor or pharmacy Never 11/07/2022 [facility] Utilities Answer Date Recorded In the past 12 months has th e Ac[employer], gas, oil, or water company threatened to shut off services in your home? No 06/20/2024 Social Connection and Isolat ion Panel [NHANES] Answer Date Recorded In a typical week, how many times do you talk on the phone with family, friends, or neighbors? More than three times a week 06/20/2024 How often do you get togethe r with friends or relatives? More than three times a week 06/20/2024 How often do you attend chur ch or islam services? More than 4 times per year 06/20/2024 Do you belong to any clubs o r organizations such as taoist groups, unions, fraternal or athletic groups, or school groups? Yes 06/20/2024 How often do you attend meet ings of the clubs or organizations you belong to? More than 4 times per year 06/20/2024 Are you , , di vorced, , never , or living with a partner? 06/20/2024 AUDIT-C Answer Date Recorded Frequency of Alcohol Consumption Not on file 05/26/2024 Q2: How many drinks containi ng alcohol do you have on a typical day when you are drinking? Patient does not drink Frequency of Binge Drinking Not on file 05/08 Overall Financial Resource Strain (CARDIA) Answe r Date Recorded How hard is it for you to pa y for the very basics like food, housing, medical care, and heating? Not hard at all 06/20/2024 PHQ-2 Answer Date Recorded PHQ-2 Total Score 0 06/20/2024 Hunger Vital Sign Answer Date Recorded Within the past 12 months, y ou worried that your food would run out before you got the money to buy more. Never true 06/20/20 24 Within the past 12 months, t he food you bought just didn't last and you didn't have money to get more. Never true 06/20/2024 PRAPARE - Transportation Answer Date Re corded In the past 12 months, has l ack of transportation kept you from medical appointments or from getting medications? No 06/07 In the past 12 months, has l ack of transportation kept you from meetings, work, or from getting things needed for daily living? No 06/20/2024 Housing Stability Vital Sign Answer Minesh e Recorded In the last 12 months, was t here a time when you were not able to pay the mortgage or rent on time? No 06/20/2024 In the past 12 months, how m any times have you moved where you were living? 0 06/20/2024 At any time in the past 12 m [facility], were you homeless or living in a fpc (including now)? No 06/20/2024 Personal Safety Answer Date Recorded Have you ever been in or are you currently in a harmful physical or emotional relationship or is someone making you feel afraid or unsafe? Denies 06/16/2024 Comments No Sex and Gender Information Value Date Recorded Sex Assigned at Not on file Legal Sex Female 2:41 PM FABRIC INSPECTOR Gender Identity Not on file Sexual Orientation Straight 02/19/2021 9: 29 AM CDT Occupation Industry Job Start Date Job End Date retired Not on file Not on file Not on file Obstetrics History Para Term AB IAB SAB Ectopic Multiple Livin g Live Births 6 4 4 0 2 2 4 Date Outcome GA Total Labor Labor/2nd/3rd Weight Sex Type Anes PTL Martha A1 A5 Name Clin Term Term Term Term SAB SAB Last Filed Vital Signs Vital Sign Reading Time Taken Comments Blood Pressure 139/45 06/20/2024 8:14 AM FABRIC INSPECTOR Pulse 95 06/20/2024 8:14 AM FABRIC INSPECTOR Temperature 36.4 ??C (97.6 ??F) 06/20/2024 7:25 AM CS T Respiratory Rate 16 06/20/2024 7:25 AM FABRIC INSPECTOR Oxygen Saturation 95% 06/20/2024 7:25 AM FABRIC INSPECTOR Inhaled Oxygen Concentration - - Weight 72.6 kg (160 lb) 06/19/2024 9:30 PM FABRIC INSPECTOR Height 160 cm (5' 3 ) 06/19/2024 7:33 AM FABRIC INSPECTOR Body Mass Index 28.34 06/19/2024 7:33 AM FABRIC INSPECTOR Plan of Treatment Health Maintenance Due Date Last Done Comments Colon Cancer Screening-Colonoscopy 1948 Hepatitis B Screening 1966 Well Visit 65+ 2013 Zoster Vaccine (1 of 2) 07/22/2015 05/27/2015, 05/26 Osteoporosis Screening-Bone Density Scan 03/10/2022 03/10/2020 Covid-19 Vaccine (4 - 2023-2 5 season) 2024 03/08/2021, 09/26/2020, 08/25/2020 Depression Screening 06/13/2025 06/13/2024 Fall Risk Assessment 06/20/2025 06/20/2024, 05/26/20 24 DTaP/Tdap/Td Vaccine (2 - Td or Tdap) 11/20/2030 11/20/2020 Pneumococcal vaccine 65+ Completed 021, 05/29/2016, 05/26/2015 Hepatitis C Screening Completed 01/02/2021 Breast Cancer Screening-Mammogram Discontinued 01/06/2024, 06/13/2023, 04/02/2022, Additional history exists Influenza Vaccine Completed 04/08/2024, , 05/04/2019, Additional history exists Medical Devices Implanted Type Area Machine Welder Device Identifier Shelf Expiration Date Model / Serial / Lot Left Knee Replacement Other - see comments Left: Knee Description:Left knee replac ement [employer] [id number] 6fr 26cm 145cm Radiopaque Positioner Filiform Flexible Tip - Sna - [id number] Implanted:Qty: 1 on 06/16/2024 by Mela Dejesus MD at [facility] Stent Right: Ureter [employer] [id number] 02/03/2027 [id number] / NA / [id number] [employer] Port 8fr [id number] - [id number] Implanted:Qty: 1 on 09/14/2021 at [facility] [employer] 04/18/2026 [id number] / / [id number] [employer] [place] Angio-Seal Vip 6fr Closere Device [id number] - [id number] Implanted:Qty: 1 on 06/19/2024 by Mikey Meraz MD at [facility] [employer] [facility] 11/18/2024 [id number] / / [id number] 22 Procedures Procedure Name Priority Date/Time Associated Diagnosis Comments EGFR Routine 06/20/2024 12:59 AM FABRIC INSPECTOR DIFFERENTIAL AUTO Routine 06/20/2024 12:59 AM FABRIC INSPECTOR MAGNESIUM Routine 06/20/2024 12:59 AM FABRIC INSPECTOR HEPATIC FUNCTION PANEL Routine 06/20/2024 12:59 AM FABRIC INSPECTOR CBC WITH AUTO DIFFERENTIAL Routine 06/20/2024 12:59 AM FABRIC INSPECTOR BASIC METABOLIC PANEL Routine 06/20/2024 12:59 AM FABRIC INSPECTOR EMBOLIZATION ORGAN ISCHEMIA OR INFARCTION Schedule Routine, Read Routine (OP Routine) 06/19/2024 11:17 AM FABRIC INSPECTOR 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) BIOPSY LIVER Schedule Routine, Read Routine (OP Routine) 06/19/2024 9:00 AM FABRIC INSPECTOR 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) SURGICAL PATHOLOGY Routine 06/19/2024 8: 53 AM FABRIC INSPECTOR ANNE-MARIE (acute kidney injury) (HCC) 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 History of malignant neuroendocrine tumor 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) EGFR Routine 06/19/2024 1:56 AM FABRIC INSPECTOR DIFFERENTIAL AUTO Routine 06/19/2024 1:5 6 AM FABRIC INSPECTOR MAGNESIUM Routine 06/19/2024 1:56 AM FABRIC INSPECTOR HEPATIC FUNCTION PANEL Routine 06/19/2024 1:56 AM FABRIC INSPECTOR CBC WITH AUTO DIFFERENTIAL Routine 06/19/2024 1:56 AM FABRIC INSPECTOR BASIC METABOLIC PANEL Routine 06/19/2024 1:56 AM FABRIC INSPECTOR US KIDNEY COMPLETE IP Routine 06/18/2024 3: 53 PM FABRIC INSPECTOR XR ABDOMEN AP 1 VIEW IP Routine 06/18/2024 5:54 AM FABRIC INSPECTOR MANUAL DIFFERENTIAL Routine 06/18/2024 1 :37 AM FABRIC INSPECTOR EGFR Routine 06/18/2024 1:37 AM FABRIC INSPECTOR MAGNESIUM Routine 06/18/2024 1:37 AM FABRIC INSPECTOR HEPATIC FUNCTION PANEL Routine 06/18/2024 1:37 AM FABRIC INSPECTOR CBC WITH AUTO DIFFERENTIAL Routine 06/18/2024 1:37 AM FABRIC INSPECTOR BASIC METABOLIC PANEL Routine 06/18/2024 1:37 AM FABRIC INSPECTOR TRANSTHORACIC ECHO (TTE) COMPLETE W DOPPLER/CF W CONTRAST Routine 06/17/2024 4:25 PM FABRIC INSPECTOR MANUAL DIFFERENTIAL Routine 06/17/2024 1 :25 AM FABRIC INSPECTOR EGFR Routine 06/17/2024 1:25 AM FABRIC INSPECTOR MAGNESIUM Routine 06/17/2024 1:25 AM FABRIC INSPECTOR HEPATIC FUNCTION PANEL Routine 06/17/2024 1:25 AM FABRIC INSPECTOR CBC WITH AUTO DIFFERENTIAL Routine 06/17/2024 1:25 AM FABRIC INSPECTOR BASIC METABOLIC PANEL Routine 06/17/2024 1:25 AM FABRIC INSPECTOR FL FLUOROSCOPY < 1 HOUR IP Routine 06/16/2024 3:37 PM FABRIC INSPECTOR DC AN PROCEDURE PLACEHOLDER Routine 06/16/2024 3:30 PM FABRIC INSPECTOR DC AN ELECTIVE SUPRAGLOTTIC AIRWAY Routine 06/16/2024 3:30 PM FABRIC INSPECTOR PYELOGRAM - RETROGRADE 06/16/2024 3:03 PM FABRIC INSPECTOR ANNE-MARIE (acute kidney injury) (HCC) 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 PLACEMENT STENT - URETERAL 06/16/2024 3:03 PM FABRIC INSPECTOR ANNE-MARIE (acute kidney injury) (HCC) 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 CYSTOSCOPY 06/16/2024 3:03 PM FABRIC INSPECTOR ANNE-MARIE (acute kidney injury) (HCC) 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 MANUAL DIFFERENTIAL Routine 06/16/2024 12:50 AM FABRIC INSPECTOR EGFR Routine 06/16/2024 12:50 AM FABRIC INSPECTOR MAGNESIUM Routine 06/16/2024 12:50 AM FABRIC INSPECTOR HEPATIC FUNCTION PANEL Routine 06/16/2024 12:50 AM FABRIC INSPECTOR CBC WITH AUTO DIFFERENTIAL Routine 06/16/2024 12:50 AM FABRIC INSPECTOR BASIC METABOLIC PANEL Routine 06/16/2024 12:50 AM FABRIC INSPECTOR MANUAL DIFFERENTIAL Routine 06/15/2024 1 :26 AM FABRIC INSPECTOR EGFR Routine 06/15/2024 1:26 AM FABRIC INSPECTOR MAGNESIUM Routine 06/15/2024 1:26 AM FABRIC INSPECTOR HEPATIC FUNCTION PANEL Routine 06/15/2024 1:26 AM FABRIC INSPECTOR CBC WITH AUTO DIFFERENTIAL Routine 06/15/2024 1:26 AM FABRIC INSPECTOR BASIC METABOLIC PANEL Routine 06/15/2024 1:26 AM FABRIC INSPECTOR ECG 12-LEAD Routine 06/14/2024 8:[address] ABDOMEN PELVIS W CONTRAST ED 06/14/2024 2:26 AM FABRIC INSPECTOR PRO B-TYPE NATRIURETIC PEPTIDE STAT 06/14/2024 12:23 AM FABRIC INSPECTOR EGFR STAT 06/14/2024 12:23 AM FABRIC INSPECTOR DIFFERENTIAL AUTO STAT 06/14/2024 12:23 AM FABRIC INSPECTOR COMPREHENSIVE METABOLIC PANEL STAT 06/14/2024 12:23 AM FABRIC INSPECTOR CBC WITH AUTO DIFFERENTIAL STAT 06/14/2024 12:23 AM FABRIC INSPECTOR URINALYSIS, MICROSCOPIC ONLY STAT 06/13/2024 6:05 PM FABRIC INSPECTOR URINALYSIS AND REFLEX TO MICROSCOPIC AND CULTURE STAT 06/13/2024 6:05 PM FABRIC INSPECTOR RESPIRATORY PATHOGEN PANEL STAT 06/13/2024 4:56 PM FABRIC INSPECTOR POC BLOOD GAS AND CHEMISTRIES, ARTERIAL Routine 06/13/2024 4:53 PM FABRIC INSPECTOR MANUAL DIFFERENTIAL STAT 06/13/2024 4 :30 PM FABRIC INSPECTOR SENIOR STAFF REVIEW STAT 06/13/2024 4 :30 PM FABRIC INSPECTOR EGFR STAT 06/13/2024 4:30 PM FABRIC INSPECTOR PHOSPHORUS STAT 06/13/2024 4:30 PM FABRIC INSPECTOR MAGNESIUM STAT 06/13/2024 4:30 PM FABRIC INSPECTOR COMPREHENSIVE METABOLIC PANEL STAT 06/13/2024 4:30 PM FABRIC INSPECTOR CBC WITH AUTO DIFFERENTIAL STAT 06/13/2024 4:30 PM FABRIC INSPECTOR EGFR Routine 06/09/2024 1:27 PM FABRIC INSPECTOR Neuroendocrine carcinoma (HCC) COMPREHENSIVE METABOLIC PANEL Routine 06/09/2024 1:27 PM FABRIC INSPECTOR Neuroendocrine carcinoma (HCC) LIPID PANEL Routine 06/09/2024 1:27 PM FABRIC INSPECTOR 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) PHOSPHORUS Routine 06/09/2024 1:27 PM FABRIC INSPECTOR 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) VITAMIN D 25 HYDROXY Routine 06/09/2024 1:27 PM FABRIC INSPECTOR 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) CHROMOGRANIN A Routine 06/09/2024 1:27 PM FABRIC INSPECTOR 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) MANUAL DIFFERENTIAL STAT 05/12/2024 10:26 AM FABRIC INSPECTOR Neuro-endocrine carcinoma (HCC) EGFR STAT 05/12/2024 10:26 AM FABRIC INSPECTOR Neuro-endocrine carcinoma (HCC) DIFFERENTIAL AUTO STAT 05/12/2024 10:26 AM FABRIC INSPECTOR Neuro-endocrine carcinoma (HCC) CBC WITH AUTO DIFFERENTIAL STAT 05/12/2024 10:26 AM FABRIC INSPECTOR Neuro-endocrine carcinoma (HCC) COMPREHENSIVE METABOLIC PANEL STAT 05/12/2024 10:26 AM FABRIC INSPECTOR Neuro-endocrine carcinoma (HCC) MAGNESIUM STAT 05/12/2024 10:26 AM FABRIC INSPECTOR Neuro-endocrine carcinoma (HCC) LIPID PANEL Routine 05/12/2024 10:26 AM FABRIC INSPECTOR 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) PHOSPHORUS Routine 05/12/2024 10:26 AM FABRIC INSPECTOR 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) VITAMIN D 25 HYDROXY Routine 05/12/2024 10:26 AM FABRIC INSPECTOR 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) CHROMOGRANIN A Routine 05/12/2024 10:26 AM FABRIC INSPECTOR 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) CT CHEST ABDOMEN PELVIS W CONTRAST Schedule Routine, Read Routine (OP Routine) 05/06/2024 8:51 AM CDT Neuroendocrine carcinoma (HCC) SCAN - OTHER ORDERS 04/30/2024 PROTEIN / CREATININE RATIO, URINE, RANDOM STAT 04/14/2024 10:40 AM CDT Neuro-endocrine carcinoma (HCC) MANUAL DIFFERENTIAL STAT 04/14/2024 10:35 AM CDT Neuro-endocrine carcinoma (HCC) EGFR STAT 04/14/2024 10:35 AM CDT Neuro-endocrine carcinoma (HCC) DIFFERENTIAL AUTO STAT 04/14/2024 10:35 AM CDT Neuro-endocrine carcinoma (HCC) CBC WITH AUTO DIFFERENTIAL STAT 04/14/2024 10:35 AM CDT Neuro-endocrine carcinoma (HCC) COMPREHENSIVE METABOLIC PANEL STAT 04/14/2024 10:35 AM CDT Neuro-endocrine carcinoma (HCC) MAGNESIUM STAT 04/14/2024 10:35 AM CDT Neuro-endocrine carcinoma (HCC) PHOSPHORUS STAT 04/14/2024 10:35 AM CDT Neuro-endocrine carcinoma (HCC) LIPID PANEL Routine 04/14/2024 10:35 AM CDT 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) VITAMIN D 25 HYDROXY Routine 04/14/2024 10:35 AM CDT 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) PHOSPHORUS Routine 04/14/2024 10:35 AM CDT 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) CHROMOGRANIN A Routine 04/14/2024 10:35 AM CDT 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) SCREENING MAMMOGRAM BILATERAL W SENG Schedule Routine, Read Routine (OP Routine) 06/13/2023 2:01 PM FABRIC INSPECTOR Screening mammogram, encounter for HEPATITIS PANEL, ACUTE Routine 01/02/2021 2:05 PM CDT Neuro-endocrine carcinoma (CMS/HCC) DEXA AXIAL SKELETON BONE DENSITY 1 OR MORE SITES Schedule Routine, Read Routine (OP Routine) 03/10/2020 9:58 AM CDT Abnormal bone density screening from Last 3 Months or Most Recently Relevant to Health Maintenance Results * (ABNORMAL) eGFR (06/20/2024 12:59 AM FABRIC INSPECTOR) eGFR 38(L) >=60 mL/min/1. 73 m2 Comment: Interpretive Data Reference Interval Normal ?>/= 90 mL/min/1.73m2 Mildly decreased* ? 60 - 89 mL/min/1.73m2 Mildly to moderately decreased ?45 - 59 mL/min/1.73m2 Moderately to severely decreased ??30 - 44 mL/min/1.73m2 Severely decreased ?15 - 29 mL/min/1.73m2 Kidney Failure ?< 15 ??mL/min/1.73m2 *Relative to young adult level Estimated glomerular filtration rate is determined by the 2020 CKD-EPI equation recommended by the National Kidney Foundation (A Unifying Approach to GFR Estimation: Recommendations of the NKF-ASK Task Force on Reassessing the Inclusion of Race in Diagnosing Kidney Disease, JASN 2020). The CKD-EPI equation should not be used for patients with unstable renal function and has not been validated in children and those over 70. Current interpretive data was last reviewed 2021. Blood 06/20/2024 12:5 9 AM FABRIC INSPECTOR 06/20/2024 1:19 AM FABRIC INSPECTOR us Nasir Lyons MD LAB BLOOD ORDERABLES Mel badillo Result [facility] Department [place] [address] * (ABNORMAL) Differential, auto (06/20/2024 12:59 AM FABRIC INSPECTOR) Neutrophil abs 5.8 1.5 - 6.5 K/cumm Imm gran abs 0.1 0.0 - 0.1 K/cumm [facility] Lymphocyte abs 2.3 0.8 - 3.3 K/cumm [facility] Monocyte abs 2.7(H) 0.2 - 0.8 K/cumm [facility] Eosinophil abs 0.0 0.0 - 0.5 K/cumm [facility] Basophil abs 0.0 0.0 - 0.1 K/cumm [facility] Neutrophil pct 52.9 % [facility] Comment: Consistent with previous result Interpretive Data Percent cell count reference ranges are not reported, since discordance with absolute values may lead to misinterpretation of CBC data. Current Interpretive Data was last revised on 2017. Imm gran pct 0.5 % [facility] Comment: Interpretive Data Percent cell count reference ranges are not reported, since discordance with absolute values may lead to misinterpretation of CBC data. Current Interpretive Data was last revised on 2017. Lymphocyte pct 21.0 % [facility] Comment: Interpretive Data Percent cell count reference ranges are not reported, since discordance with absolute values may lead to misinterpretation of CBC data. Current Interpretive Data was last revised on 2017. Monocyte pct 24.9 % [facility] Comment: Interpretive Data Percent cell count reference ranges are not reported, since discordance with absolute values may lead to misinterpretation of CBC data. Current Interpretive Data was last revised on 2017. Eosinophil pct 0.3 % [facility] Comment: Interpretive Data Percent cell count reference ranges are not reported, since discordance with absolute values may lead to misinterpretation of CBC data. Current Interpretive Data was last revised on 2017. Basophil pct 0.4 % [facility] Comment: Interpretive Data Percent cell count reference ranges are not reported, since discordance with absolute values may lead to misinterpretation of CBC data. Current Interpretive Data was last revised on 2017. Blood 06/20/2024 12:5 9 AM FABRIC INSPECTOR 06/20/2024 1:20 AM FABRIC INSPECTOR Nasir Lyons MD LAB BLOOD ORDERABLES Mel l Result Performing Organization Address [facility] Co de Phone Number [facility] Department [place] [address] * (ABNORMAL) CBC with auto differential (06/20/2024 12:59 AM FABRIC INSPECTOR) WBC 11.0(H) 3.8 - 9.9 K/cumm Hgb 10.8(L) 11.9 - 15.5 g/dL [facility] Hct 33.7(L) 35.6 - 45.5 % [facility] Plt 133(L) 150 - 400 K/cumm [facility] MPV 10.2 9.1 - 12.3 fL [facility] RBC 3.45(L) 3.90 - 5.20 M/cumm [facility] MCV 97.7(H) 81.3 - 96.4 fL [facility] MCH 31.3 27.1 - 33.3 pg [facility] MCHC 32.0(L) 32.3 - 35.7 g/dL [facility] RDW CV 14.6 11.1 - 14.9 % [facility] RDW SD 52.6(H) 35.7 - 48.1 fL [facility] NRBC abs 0.00 0.00 - 0.01 K/cumm [facility] Blood 06/20/2024 12:5 9 AM FABRIC INSPECTOR 06/20/2024 1:20 AM FABRIC INSPECTOR Nasir Lyons MD LAB BLOOD ORDERABLES Mel l Result Performing Organization Address [facility] Co de Phone Number [facility] [place] [address] * Magnesium (06/20/2024 12:59 AM FABRIC INSPECTOR) [facility] Magnesium 1.4 1.4 - 2.5 mg/dL Blood 06/20/2024 12:5 9 AM FABRIC INSPECTOR 06/20/2024 1:19 AM FABRIC INSPECTOR Nasir Lyons MD LAB BLOOD ORDERABLES Mel l Result Performing Organization Address [facility]/[place] [address] * (ABNORMAL) Hepatic function panel (06/20/2024 12:59 AM FABRIC INSPECTOR) [facility] Bilirubin, total 0.6 0.1 - 1.2 mg/dL Bilirubin, direct <0.2 0.1 - 0.3 mg/dL [facility] Protein, pl 6.2(L) 6.5 - 8.5 g/dL [facility] Albumin 3.8 3.5 - 5.0 g/dL [facility] Alk phos 85 40 - 130 Units/L [facility] ALT 164(H) 7 - 45 Units/L [facility] Comment:Reviewed AST 433(H) 10 - 45 Units/L [facility] Comment:Reviewed Blood 06/20/2024 12:5 9 AM FABRIC INSPECTOR 06/20/2024 1:19 AM FABRIC INSPECTOR Nasir Lyons MD LAB BLOOD [place] [address] * (ABNORMAL) Basic metabolic panel (06/20/2024 12:59 AM FABRIC INSPECTOR) [facility] Sodium 138 135 - 145 mmol/L Potassium, pl 3.5 3.3 - 4.9 mmol/L [facility] Chloride 105 97 - 110 mmol/L [facility] CO2 25 22 - 32 mmol/L [facility] Anion gap 8 2 - 15 mmol/L [facility] BUN 12 6 - 25 mg/dL [facility] Creatinine 1.44(H) 0.60 - 1.10 mg/dL [facility] Glucose 123 70 - 199 mg/dL [facility] Comment: Interpretive Data Fasting glucose >/= 126 mg/dl is diagnostic for diabetes. ?? Fasting is defined as no caloric intake for at least 8 hours. Fasting glucose between 100 mg/dl to 125 mg/dl is diagnostic of prediabetes. In a patient with classic symptoms of hyperglycemia or hyperglycemic crisis, a random glucose >/= 200 mg/dl is diagnostic for diabetes. In the absence of unequivocal hyperglycemia, results should be confirmed by repeat testing. The classification and Diagnosis of Diabetes Diabetes Care 2021; 46: S19-S40. Current interpretive data was last revised 2022. Calcium 8.1(L) 8.5 - 10.3 mg/dL [facility] Blood 06/20/2024 12:5 9 AM FABRIC INSPECTOR 06/20/2024 1:19 AM FABRIC INSPECTOR us Nasir Lyons MD LAB BLOOD ORDERABLES Mel badillo Result [facility] Department [place] [address] * IR Embolization Tumor Organ Ischemia or Infarction (06/19/2024 11:17 AM FABRIC INSPECTOR) Anatomical Region Laterality Modality Body N/A X-Ray Angiograph y 06/19/2024 4:13 PM FABRIC INSPECTOR Impressions 06/19/2024 4:15 PM FABRIC INSPECTOR Successful diagnostic angiography and chemo-embolization of the right posterior liver using 25 mg doxorubicin and Ethiodol and Gelfoam. PLAN: Interventional radiology will coordinate outpatient follow-up. Dictated by: Dar Willett M.D. The radiology attending physician has personally reviewed this study, and had reviewed and/or edited this written report and agrees with it. Electronically signed by: Mikey Meraz M.D. 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 ?? SEDATION: Procedural sedation was administered under the attending physician's direction and continuous monitoring by a trained nurse specialist who was independent from those actually performing the procedure. ??Total monitored sedation time was 60 minutes. TECHNIQUE: ??The risks, benefits and alternatives were discussed and informed consent was obtained. Prior to beginning the procedure, Sherrard Protocol was performed to confirm the patient's identity and the planned procedure. ??The fluoroscopy time has been recorded in the electronic medical record. Maximum sterile barriers including cap, mask, hand hygiene, sterile gloves, sterile gown, large sterile drape and 2% chlorhexidine for cutaneous antisepsis were used. After sterile prep, the skin over the right groin area was infiltrated with 1% lidocaine. The right common femoral artery was punctured under real time ultrasound guidance. ??An image of the patent vessel was recorded. A 6 Togolese sheath was placed and connected to a heparinized saline drip. Using fluoroscopic guidance, the following arteries were catheterized and selective diagnostic angiograms were performed: Common hepatic artery with Nancy CT Posterior division of the right hepatic artery (3rd order) The equipment used for catheterization was 5 Togolese LEV catheter and a Glidewire. ??The equipment used for selective catheterization was 2.7-Togolese Progreat catheter and a fathom wire. The microcatheter tip was positioned in the posterior division of the right hepatic artery hepatic artery and the position confirmed with injection of radiographic contrast media . The chemoembolization was then performed in the target vascular territory, using appropriate precautions, to the angiographic end point of stasis in the target artery. The agent used for chemoembolization was 25 mg doxorubicin and Ethiodol. ??Gelfoam embolization was performed to an endpoint of stasis. The catheters and equipment were removed and disposed of using appropriate institutional protocol for chemotherapy contaminated objects. The side arm of the vascular sheath was used to perform a limited angiogram to confirm satisfactory position of arterial puncture site. Angioseal device was deployed to accomplish successful closure of the arteriotomy. ESTIMATED BLOOD LOSS: Minimal. CONDITION: Stable DISCHARGED TO: Inpatient unit FINDINGS: ?? Ultrasound image demonstrates a patent right common femoral artery. ? DIAGNOSTIC: There is conventional hepatic arterial anatomy. ??Of note there is a gastric branch arising from the left hepatic artery which supplies the fundus. ??Angiography demonstrates innumerable metastases throughout the right and left liver. ? 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 SEDATION: Procedural sedation was administered under the attending physician's direction and continuous monitoring by a trained nurse specialist who was independent from those actually performing the procedure. Total monitored sedation time was 60 minutes. TECHNIQUE: The risks, benefits and alternatives were discussed and informed consent was obtained. Prior to beginning the procedure, Sherrard Protocol was performed to confirm the patient's identity and the planned procedure. The fluoroscopy time has been recorded in the electronic medical record. Maximum sterile barriers including cap, mask, hand hygiene, sterile gloves, sterile gown, large sterile drape and 2% chlorhexidine for cutaneous antisepsis were used. After sterile prep, the skin over the right groin area was infiltrated with 1% lidocaine. The right common femoral artery was punctured under real time ultrasound guidance. An image of the patent vessel was recorded. A 6 Togolese sheath was placed and connected to a heparinized saline drip. Using fluoroscopic guidance, the following arteries were catheterized and selective diagnostic angiograms were performed: Common hepatic artery with Nancy CT Posterior division of the right hepatic artery (3rd order) The equipment used for catheterization was 5 Togolese LEV catheter and a Glidewire. The equipment used for selective catheterization was 2.7-Togolese Progreat catheter and a fathom wire. The microcatheter tip was positioned in the posterior division of the right hepatic artery hepatic artery and the position confirmed with injection of radiographic contrast media . The chemoembolization was then performed in the target vascular territory, using appropriate precautions, to the angiographic end point of stasis in the target artery. The agent used for chemoembolization was 25 mg doxorubicin and Ethiodol. Gelfoam embolization was performed to an endpoint of stasis. The catheters and equipment were removed and disposed of using appropriate institutional protocol for chemotherapy contaminated objects. The side arm of the vascular sheath was used to perform a limited angiogram to confirm satisfactory position of arterial puncture site. Angioseal device was deployed to accomplish successful closure of the arteriotomy. ESTIMATED BLOOD LOSS: Minimal. CONDITION: Stable DISCHARGED TO: Inpatient unit FINDINGS: Ultrasound image demonstrates a patent right common femoral artery. DIAGNOSTIC: There is conventional hepatic arterial anatomy. Of note there is a gastric branch arising from the left hepatic artery which supplies the fundus. Angiography demonstrates innumerable metastases throughout the right and left liver. THERAPEUTIC: Following chemoembolization and Gelfoam embolization there is stasis of flow in the posterior division of the right hepatic artery IMPRESSION: Successful diagnostic angiography and chemo-embolization of the right posterior liver using 25 mg doxorubicin and Ethiodol and Gelfoam. PLAN: Interventional radiology will coordinate outpatient follow-up. Dictated by: Dar Willett M.D. The radiology attending physician has personally reviewed this study, and had reviewed and/or edited this written report and agrees with it. Electronically signed by: Mikey Meraz M.D. Mikey Meraz MD IMG IR PROCEDURES Mel l Result * IR Biopsy Liver (06/19/2024 9:00 AM FABRIC INSPECTOR) Anatomical Region Laterality Modality Body N/A Computed Tomogra phy 06/19/2024 4:01 PM FABRIC INSPECTOR Impressions 06/19/2024 4:10 PM FABRIC INSPECTOR Successful image-guided core biopsy of a segment IVb hepatic lesion. PLAN: Patient will proceed to the interventional radiology area for chemoembolization. Dictated by: Dar Willett M.D. The radiology attending physician has personally reviewed this study, and had reviewed and/or edited this written report and agrees with it. Electronically signed by: Mikey Meraz M.D. 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 SEDATION: Procedural sedation was administered under the attending physician's direction and continuous monitoring by a trained nurse specialist who was independent from those actually performing the procedure. ??Total monitored sedation time was 30 minutes. TECHNIQUE: The risks, benefits and alternatives were discussed and informed consent was obtained. Prior to beginning the procedure, Sherrard Protocol was performed to confirm the patient's identity and the planned procedure. ??For procedures that utilize fluoroscopy, the fluoroscopy time has been recorded in the electronic medical record. Maximum sterile barriers including cap, mask, hand hygiene, sterile gloves, sterile gown, large sterile drape and 2% chlorhexidine for cutaneous antisepsis were used. The patient was placed in a supine position. Initial CT images were obtained for localization and saved to PACS. An appropriate biopsy site was selected and marked on the skin. The biopsy site was prepped and draped in the usual sterile fashion. The overlying skin and soft tissues were anesthetized with 10 mL of 1% lidocaine. Under CT guidance, a coaxial needle biopsy system was utilized. The outer needle was advanced adjacent to the hepatic under intermittent image guidance. After positioning the outer needle adjacent to the target, an inner core biopsy device was advanced into the target. A total of 4 core biopsies were obtained from the intended target. The biopsy samples were placed in formalin. Biopsy tract embolization was performed with Gelfoam. ??Hemostasis was achieved with manual compression. Needle(s) utilized: 17/18 gauge Biopince biopsy device. The skin was then cleansed and a sterile dressing was applied. ESTIMATED BLOOD LOSS: Minimal. CONDITION: Stable DISCHARGED TO: Recovery FINDINGS: The initial localization images demonstrated multiple hypoattenuating hepatic lesions. ??A lesion in segment IVb was targeted. ??Images obtained during core biopsy procedure demonstrate positioning of the biopsy needle through the target. Post biopsy images demonstrate no significant postprocedure complication such as hemorrhage. 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 SEDATION: Procedural sedation was administered under the attending physician's direction and continuous monitoring by a trained nurse specialist who was independent from those actually performing the procedure. Total monitored sedation time was 30 minutes. TECHNIQUE: The risks, benefits and alternatives were discussed and informed consent was obtained. Prior to beginning the procedure, Sherrard Protocol was performed to confirm the patient's identity and the planned procedure. For procedures that utilize fluoroscopy, the fluoroscopy time has been recorded in the electronic medical record. Maximum sterile barriers including cap, mask, hand hygiene, sterile gloves, sterile gown, large sterile drape and 2% chlorhexidine for cutaneous antisepsis were used. The patient was placed in a supine position. Initial CT images were obtained for localization and saved to PACS. An appropriate biopsy site was selected and marked on the skin. The biopsy site was prepped and draped in the usual sterile fashion. The overlying skin and soft tissues were anesthetized with 10 mL of 1% lidocaine. Under CT guidance, a coaxial needle biopsy system was utilized. The outer needle was advanced adjacent to the hepatic under intermittent image guidance. After positioning the outer needle adjacent to the target, an inner core biopsy device was advanced into the target. A total of 4 core biopsies were obtained from the intended target. The biopsy samples were placed in formalin. Biopsy tract embolization was performed with Gelfoam. Hemostasis was achieved with manual compression. Needle(s) utilized: 17/18 gauge Biopince biopsy device. The skin was then cleansed and a sterile dressing was applied. ESTIMATED BLOOD LOSS: Minimal. CONDITION: Stable DISCHARGED TO: Recovery FINDINGS: The initial localization images demonstrated multiple hypoattenuating hepatic lesions. A lesion in segment IVb was targeted. Images obtained during core biopsy procedure demonstrate positioning of the biopsy needle through the target. Post biopsy images demonstrate no significant postprocedure complication such as hemorrhage. IMPRESSION: Successful image-guided core biopsy of a segment IVb hepatic lesion. PLAN: Patient will proceed to the interventional radiology area for chemoembolization. Dictated by: Dar Willett M.D. The radiology attending physician has personally reviewed this study, and had reviewed and/or edited this written report and agrees with it. Electronically signed by: Mikey Meraz M.D. Mikey Meraz MD IMG IR PROCEDURES Mel l Result * Surgical pathology (06/19/2024 8:53 AM FABRIC INSPECTOR) Tissue (Soft tissue biopsy) 06/19/2024 8:53 AM FABRIC INSPECTOR Narrative PATHOLOGY [facility] - 06/23/2024 3:41 PM FABRIC INSPECTOR EPIC results best viewed via link to PDF [facility] [place] [address] Note to Patients: This report may contain a detailed description of human tissue sent by a health care provider to the laboratory for pathologic evaluation. The content of this report is essential for diagnosis and may provide important critical findings. This information may be unfamiliar to patients to review without a medical professional present. It is advised that the patient review this report in the presence of a health care provider who can answer questions and explain the details. SURGICAL PATHOLOGY REPORT FINAL Patient Name: ?? LA CHUNG Gender: ??F : ??1950 (Age: 73) Address: ??[address] [place] [address] ??[id number] Hospital #: ??[id number] Taken:06/19/2024 Received:06/19/2024 Reported: 06/23/2024 Patient Type: [facility] Inpatient ?? Service: Oncology Location: [facility] ??[address] Physician(s): ??MD Julio César Serrato M.D. Diagnosis: A. Liver, lesion, biopsy ?- Metastatic well-differentiated neuroendocrine tumor, WHO Grade 2. ? - See comment. ? laha/06/22/2024 08:38 By this signature, I attest that the above diagnosis is based upon my personal examination of the slides(and/or other material indicated in the diagnosis). Gerardo Pineda M.D. Report Electronically Reviewed and Signed Out By ??Gerardo Pineda M.D. 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 Immunohistochemistry (single antibody procedure with appropriate controls) was performed for further characterization. Tumor cells are positive for chromogranin and synaptophysin. Ki67 proliferation index is ~4.4% (22/500) in tumor cells by manual count. Findings are consistent with metastatic well- differentiated neuroendocrine tumor (WHO grade 2). Microscopic examination substantiates the above cited diagnosis. Mark Sommer M.D. History: The patient is a 73-year-old woman presenting for acute kidney injury, hydronephrosis due to obstruction of ureter, history of malignant neuroendocrine tumor, metastatic 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. ??Operative procedure: ??Liver tumor biopsy. Specimen(s) Received: A: Liver tumor biopsy Gross Description: Received in formalin, labeled with the patient? ? s identifiers and liver tumor biopsy and consists of four lund-brown core(s) of soft tissue measuring 0.5 to 1.8 cm in length x 0.1 cm in diameter. ??Labeled A1 and A2. Jar 0. ?? elsw/06/19/2024 16:18 PA(s): Xochitl Giron By this signature, I attest that the above diagnosis is based upon my personal examination of the slides(and/or other material). Addenda/Procedures The performance characteristics of some immunohistochemical stains, fluorescence in-situ hybridization tests and immunophenotyping by flow cytometry cited in this report (if any) were determined by the Surgical Pathology and Flow Cytometry Departments at [facility] as part of an ongoing manufacturing quality engineer program and in compliance with federally mandated regulations drawn from the Clinical Laboratory Improvement Act of 1988 (CLIA '88). ??Some of these tests rely on the use of analyte specific reagents and are subject to specific labeling requirements by the US Food and Drug Administration. ??Such diagnostic tests may only be performed in a facility that is certified by the Department of Health and Human Services as a high complexity laboratory under CLIA '88. ??The FDA has determined that such clearance or approval is not necessary. ??This test is used for clinical purposes. ??It should not be regarded as investigational or for research. ??Nevertheless, federal rules concerning the medical use of analyte specific reagents require that the following disclaimer be attached to the report: This test was developed and its performance characteristics determined by the Surgical Pathology and Flow Cytometry Departments of [facility]. ??It has not been cleared or approved by the U. S. Food and Drug Administration. IMAGES AND SCANNED DOCUMENTS, IF INCLUDED, ONLY VIEWABLE IN PDF VERSION OF REPORT Dana Cancino MD LAB PATHOLOGY ORDERABLES Fin al Result PATHOLOGY [facility] 3rd Floor [place], [place] [phone] * (ABNORMAL) eGFR (06/19/2024 1:56 AM FABRIC INSPECTOR) eGFR 37(L) >=60 mL/min/1. 73 m2 Comment: Interpretive Data Reference Interval Normal ?>/= 90 mL/min/1.73m2 Mildly decreased* ? 60 - 89 mL/min/1.73m2 Mildly to moderately decreased ?45 - 59 mL/min/1.73m2 Moderately to severely decreased ??30 - 44 mL/min/1.73m2 Severely decreased ?15 - 29 mL/min/1.73m2 Kidney Failure ?< 15 ??mL/min/1.73m2 *Relative to young adult level Estimated glomerular filtration rate is determined by the 2020 CKD-EPI equation recommended by the National Kidney Foundation (A Unifying Approach to GFR Estimation: Recommendations of the NKF-ASK Task Force on Reassessing the Inclusion of Race in Diagnosing Kidney Disease, JASN 202). The CKD-EPI equation should not be used for patients with unstable renal function and has not been validated in children and those over 70. Current interpretive data was last reviewed 2021. Blood 06/19/2024 1:56 AM FABRIC INSPECTOR 06/19/2024 2:31 AM FABRIC INSPECTOR us Nasir Lyons MD LAB BLOOD ORDERABLES Mel badillo Result [facility] Department [place] [address] * (ABNORMAL) Differential, auto (06/19/2024 1:56 AM FABRIC INSPECTOR) Neutrophil abs 2.1 1.5 - 6.5 K/cumm Imm gran abs 0.0 0.0 - 0.1 K/cumm [facility] Lymphocyte abs 2.7 0.8 - 3.3 K/cumm [facility] Monocyte abs 4.0(H) 0.2 - 0.8 K/cumm [facility] Eosinophil abs 0.1 0.0 - 0.5 K/cumm [facility] Basophil abs 0.0 0.0 - 0.1 K/cumm [facility] Neutrophil pct 23.5 % [facility] Comment: Confirmed by smear review Interpretive Data Percent cell count reference ranges are not reported, since discordance with absolute values may lead to misinterpretation of CBC data. Current Interpretive Data was last revised on 2017. Imm gran pct 0.3 % [facility] Comment: Interpretive Data Percent cell count reference ranges are not reported, since discordance with absolute values may lead to misinterpretation of CBC data. Current Interpretive Data was last revised on 2017. Lymphocyte pct 30.2 % [facility] Comment: Interpretive Data Percent cell count reference ranges are not reported, since discordance with absolute values may lead to misinterpretation of CBC data. Current Interpretive Data was last revised on 2017. Monocyte pct 44.4 % [facility] Comment: Interpretive Data Percent cell count reference ranges are not reported, since discordance with absolute values may lead to misinterpretation of CBC data. Current Interpretive Data was last revised on 2017. Eosinophil pct 1.3 % [facility] Comment: Interpretive Data Percent cell count reference ranges are not reported, since discordance with absolute values may lead to misinterpretation of CBC data. Current Interpretive Data was last revised on 2017. Basophil pct 0.3 % [facility] Comment: Interpretive Data Percent cell count reference ranges are not reported, since discordance with absolute values may lead to misinterpretation of CBC data. Current Interpretive Data was last revised on 2017. Blood 06/19/2024 1:56 AM FABRIC INSPECTOR 06/19/2024 2:32 AM FABRIC INSPECTOR Nasir Lyons MD LAB BLOOD ORDERABLES Mel l Result Performing Organization Address City/[facility]/ZIP Co de Phone Number [facility] Department [place] [address] * (ABNORMAL) CBC with auto differential (06/19/2024 1:56 AM FABRIC INSPECTOR) WBC 9.1 3.8 - 9.9 K/cumm Hgb 10.1(L) 11.9 - 15.5 g/dL [facility] Hct 31.7(L) 35.6 - 45.5 % [facility] Plt 148(L) 150 - 400 K/cumm [facility] MPV 10.9 9.1 - 12.3 fL [facility] RBC 3.24(L) 3.90 - 5.20 M/cumm [facility] MCV 97.8(H) 81.3 - 96.4 fL [facility] MCH 31.2 27.1 - 33.3 pg [facility] MCHC 31.9(L) 32.3 - 35.7 g/dL [facility] RDW CV 14.3 11.1 - 14.9 % [facility] RDW SD 51.9(H) 35.7 - 48.1 fL [facility] NRBC abs 0.00 0.00 - 0.01 K/cumm [facility] Blood 06/19/2024 1:56 AM FABRIC INSPECTOR 06/19/2024 2:32 AM FABRIC INSPECTOR Nasir Lyons MD LAB BLOOD ORDERABLES Mel l Result Performing Organization Address [facility]/ZIP Co de Phone Number [facility] [place] [address] * Magnesium (06/19/2024 1:56 AM FABRIC INSPECTOR) [facility] Magnesium 1.6 1.4 - 2.5 mg/dL Blood 06/19/2024 1:56 AM FABRIC INSPECTOR 06/19/2024 2:31 AM FABRIC INSPECTOR Nasir Lyons MD LAB BLOOD ORDERABLES Mel l Result Performing Organization Address [facility] de Phone Number [facility] Department [place] [address] * (ABNORMAL) Hepatic function panel (06/19/2024 1:56 AM FABRIC INSPECTOR) [facility] Bilirubin, total 0.4 0.1 - 1.2 mg/dL Bilirubin, direct <0.2 0.1 - 0.3 mg/dL [facility] Protein, pl 5.9(L) 6.5 - 8.5 g/dL [facility] Albumin 3.5 3.5 - 5.0 g/dL [facility] Alk phos 61 40 - 130 Units/L [facility] ALT 5(L) 7 - 45 Units/L [facility] AST 21 10 - 45 Units/L [facility] Blood 06/19/2024 1:56 AM FABRIC INSPECTOR 06/19/2024 2:31 AM FABRIC INSPECTOR Nasir Lyons MD LAB BLOOD ORDERABLES Mel l Result Performing Organization Address [facility] de Phone Number [facility] Department [place] [address] * (ABNORMAL) Basic metabolic panel (06/19/2024 1:56 AM FABRIC INSPECTOR) [facility] Sodium 141 135 - 145 mmol/L Potassium, pl 3.8 3.3 - 4.9 mmol/L [facility] Chloride 107 97 - 110 mmol/L [facility] CO2 24 22 - 32 mmol/L [facility] Anion gap 10 2 - 15 mmol/L [facility] BUN 14 6 - 25 mg/dL [facility] Creatinine 1.48(H) 0.60 - 1.10 mg/dL [facility] Glucose 121 70 - 199 mg/dL [facility] Comment: Interpretive Data Fasting glucose >/= 126 mg/dl is diagnostic for diabetes. ?? Fasting is defined as no caloric intake for at least 8 hours. Fasting glucose between 100 mg/dl to 125 mg/dl is diagnostic of prediabetes. In a patient with classic symptoms of hyperglycemia or hyperglycemic crisis, a random glucose >/= 200 mg/dl is diagnostic for diabetes. In the absence of unequivocal hyperglycemia, results should be confirmed by repeat testing. The classification and Diagnosis of Diabetes Diabetes Care 2021; 46: S19-S40. Current interpretive data was last revised 2022. Calcium 8.4(L) 8.5 - 10.3 mg/dL [facility] Blood 06/19/2024 1:56 AM FABRIC INSPECTOR 06/19/2024 2:31 AM FABRIC INSPECTOR us Nasir Lyons MD LAB BLOOD ORDERABLES Mel l Result [facility] Department [place] [address] * US Kidney Complete (06/18/2024 3:53 PM FABRIC INSPECTOR) Anatomical Region Laterality Modality Kidney N/A Ultrasound 06/18/2024 3:55 PM FABRIC INSPECTOR Impressions 06/18/2024 4:09 PM FABRIC INSPECTOR 1. ??No hydronephrosis. ??Previously described right-sided hydronephrosis has resolved. 2. ??Normal renal echogenicity. Dictated by: Greyson Anthony M.D. The radiology attending physician has personally reviewed this study, and had reviewed and/or edited this written report and agrees with it. Electronically signed by: Immanuel Bennett M.D. 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 ??Follow-up hydronephrosis. COMPARISON: ??CT 06/14/2024 FINDINGS: ?? Kidneys: The echogenicity of both kidneys is normal. The kidneys are normal in size. ??The right kidney measures 10.0 cm in length, and the left, 10.8 cm in length. There is no hydronephrosis in either kidney. There are no renal calculi visualized. Bladder: The urinary bladder is decompressed. 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 Follow-up hydronephrosis. COMPARISON: CT 06/14/2024 FINDINGS: Kidneys: The echogenicity of both kidneys is normal. The kidneys are normal in size. The right kidney measures 10.0 cm in length, and the left, 10.8 cm in length. There is no hydronephrosis in either kidney. There are no renal calculi visualized. Bladder: The urinary bladder is decompressed. IMPRESSION: 1. No hydronephrosis. Previously described right-sided hydronephrosis has resolved. 2. Normal renal echogenicity. Dictated by: Greyson Anthony M.D. The radiology attending physician has personally reviewed this study, and had reviewed and/or edited this written report and agrees with it. Electronically signed by: Immanuel Bennett M.D. us Dana Cancino MD [facility] US PROCEDURES Final Resu lt * XR Abdomen Ap 1 Vw (06/18/2024 5:54 AM FABRIC INSPECTOR) Anatomical Region Laterality Modality Body, Abdomen N/A Computed Radiogr aphy 06/18/2024 11:3 4 AM FABRIC INSPECTOR Impressions 06/18/2024 11:44 AM FABRIC INSPECTOR A single view of the abdomen is submitted for evaluation. Right double-J ureteral stent traverses the expected position of the right ureter; the proximal loop courses superiorly then inferiorly. Surgical clips overlie the pelvis. ??Surgical sutures and clips overlie the right lower quadrant. ??No dilated bowel. ??Partially imaged right peripherally inserted central venous catheter tip overlies the superior cavoatrial junction. Dictated by: Tristian Tovar M.D. The radiology attending physician has personally reviewed this study, and had reviewed and/or edited this written report and agrees with it. Electronically signed by: Brock Malik M.D. Narrative 06/18/2024 11:44 AM FABRIC INSPECTOR EXAMINATION: Abdomen, one view. HISTORY: Check stent placement COMPARISON: CT 06/14/2024 Procedure Note Brock Malik MD - 06/18/2024 EXAMINATION: Abdomen, one view. HISTORY: Check stent placement COMPARISON: CT 06/14/2024 IMPRESSION: A single view of the abdomen is submitted for evaluation. Right double-J ureteral stent traverses the expected position of the right ureter; the proximal loop courses superiorly then inferiorly. Surgical clips overlie the pelvis. Surgical sutures and clips overlie the right lower quadrant. No dilated bowel. Partially imaged right peripherally inserted central venous catheter tip overlies the superior cavoatrial junction. Dictated by: Tristian Tovar M.D. The radiology attending physician has personally reviewed this study, and had reviewed and/or edited this written report and agrees with it. Electronically signed by: Brock Malik M.D. Dana Cancino MD IMG XR PROCEDURES Final Resu lt * (ABNORMAL) eGFR (06/18/2024 1:37 AM FABRIC INSPECTOR) [facility] eGFR 33(L) >=60 mL/min/1. 73 m2 Comment: Interpretive Data Reference Interval Normal ?>/= 90 mL/min/1.73m2 Mildly decreased* ? 60 - 89 mL/min/1.73m2 Mildly to moderately decreased ?45 - 59 mL/min/1.73m2 Moderately to severely decreased ??30 - 44 mL/min/1.73m2 Severely decreased ?15 - 29 mL/min/1.73m2 Kidney Failure ?< 15 ??mL/min/1.73m2 *Relative to young adult level Estimated glomerular filtration rate is determined by the 2020 CKD-EPI equation recommended by the National Kidney Foundation (A Unifying Approach to GFR Estimation: Recommendations of the NKF-ASK Task Force on Reassessing the Inclusion of Race in Diagnosing Kidney Disease, JASN 202). The CKD-EPI equation should not be used for patients with unstable renal function and has not been validated in children and those over 70. Current interpretive data was last reviewed 2021. Blood 06/18/2024 1:37 AM FABRIC INSPECTOR 06/18/2024 2:11 AM FABRIC INSPECTOR us Nasir Lyons MD LAB BLOOD ORDERABLES Mel badillo Result [facility] Department [place] [address] * (ABNORMAL) CBC with auto differential (06/18/2024 1:37 AM FABRIC INSPECTOR) WBC 9.0 3.8 - 9.9 K/cumm Hgb 10.2(L) 11.9 - 15.5 g/dL [facility] Hct 32.0(L) 35.6 - 45.5 % [facility] Plt 155 150 - 400 K/cumm [facility] MPV 10.4 9.1 - 12.3 fL [facility] RBC 3.28(L) 3.90 - 5.20 M/cumm [facility] MCV 97.6(H) 81.3 - 96.4 fL [facility] MCH 31.1 27.1 - 33.3 pg [facility] MCHC 31.9(L) 32.3 - 35.7 g/dL [facility] RDW CV 14.6 11.1 - 14.9 % [facility] RDW SD 52.8(H) 35.7 - 48.1 fL [facility] NRBC abs 0.00 0.00 - 0.01 K/cumm [facility] Blood 06/18/2024 1:37 AM FABRIC INSPECTOR 06/18/2024 2:13 AM FABRIC INSPECTOR Nasir Lyons MD LAB BLOOD ORDERABLES Mel l Result Performing Organization Address City/[facility] Co de Phone Number [facility] Department [place] [address] * (ABNORMAL) Manual Differential (06/18/2024 1:37 AM FABRIC INSPECTOR) Differential Manual Cells Counted 114 [facility] Neutrophil abs 3.2 1.5 - 6.5 K/cumm [facility] Imm gran abs 0.0 0.0 - 0.1 K/cumm [facility] Lymphocyte abs 4.8(H) 0.8 - 3.3 K/cumm [facility] Monocyte abs 1.0(H) 0.2 - 0.8 K/cumm [facility] Neutrophil pct 36.0 % [facility] Comment: Interpretive Data Percent cell count reference ranges are not reported, since discordance with absolute values may lead to misinterpretation of CBC data. Current Interpretive Data was last revised on 2017. Lymphocyte pct 53.5 % [facility] Comment: Interpretive Data Percent cell count reference ranges are not reported, since discordance with absolute values may lead to misinterpretation of CBC data. Current Interpretive Data was last revised on 2017. Monocyte pct 10.5 % [facility] Comment: Interpretive Data Percent cell count reference ranges are not reported, since discordance with absolute values may lead to misinterpretation of CBC data. Current Interpretive Data was last revised on 2017. Blood 06/18/2024 1:37 AM FABRIC INSPECTOR 06/18/2024 2:16 AM FABRIC INSPECTOR Nasir Lyons MD LAB BLOOD ORDERABLES Mel l Result Performing Organization Address [facility] Co de Phone Number [facility] Department [place] [address] * Magnesium (06/18/2024 1:37 AM FABRIC INSPECTOR) [facility] Magnesium 1.6 1.4 - 2.5 mg/dL Blood 06/18/2024 1:37 AM FABRIC INSPECTOR 06/18/2024 2:11 AM FABRIC INSPECTOR Nasir Lyons MD LAB BLOOD ORDERABLES Mel l Result [facility] Department [place] [address] * (ABNORMAL) Hepatic function panel (06/18/2024 1:37 AM FABRIC INSPECTOR) [facility] Bilirubin, total 0.5 0.1 - 1.2 mg/dL Bilirubin, direct <0.2 0.1 - 0.3 mg/dL [facility] Protein, pl 6.0(L) 6.5 - 8.5 g/dL [facility] Albumin 3.7 3.5 - 5.0 g/dL [facility] Alk phos 62 40 - 130 Units/L [facility] ALT 11 7 - 45 Units/L [facility] AST 24 10 - 45 Units/L [facility] Blood 06/18/2024 1:37 AM FABRIC INSPECTOR 06/18/2024 2:11 AM FABRIC INSPECTOR Nasir Lyons MD LAB BLOOD ORDERABLES Mel l Result [facility] Department [place] [address] * (ABNORMAL) Basic metabolic panel (06/18/2024 1:37 AM FABRIC INSPECTOR) [facility] Sodium 141 135 - 145 mmol/L Potassium, pl 3.2(L) 3.3 - 4.9 mmol/L [facility] Chloride 107 97 - 110 mmol/L [facility] CO2 26 22 - 32 mmol/L [facility] Anion gap 8 2 - 15 mmol/L [facility] BUN 14 6 - 25 mg/dL [facility] Creatinine 1.62(H) 0.60 - 1.10 mg/dL [facility] Glucose 95 70 - 199 mg/dL [facility] Comment: Interpretive Data Fasting glucose >/= 126 mg/dl is diagnostic for diabetes. ?? Fasting is defined as no caloric intake for at least 8 hours. Fasting glucose between 100 mg/dl to 125 mg/dl is diagnostic of prediabetes. In a patient with classic symptoms of hyperglycemia or hyperglycemic crisis, a random glucose >/= 200 mg/dl is diagnostic for diabetes. In the absence of unequivocal hyperglycemia, results should be confirmed by repeat testing. The classification and Diagnosis of Diabetes Diabetes Care 202; 46: S19-S40. Current interpretive data was last revised 2022. Calcium 8.1(L) 8.5 - 10.3 mg/dL [facility] Blood 06/18/2024 1:37 AM FABRIC INSPECTOR 06/18/2024 2:11 AM FABRIC INSPECTOR us Nasir Lyons MD LAB BLOOD ORDERABLES Mel badillo Result [facility] Department [place] [address] * TRANSTHORACIC ECHO (TTE) COMPLETE W DOPPLER/CF W CONTRAST (06/17/2024 4:25 PM FABRIC INSPECTOR) LV EF 66 % [facility] Anatomical Region Laterality Modality Ultrasound 06/17/2024 3:00 PM FABRIC INSPECTOR Narrative 06/17/2024 5:02 PM FABRIC INSPECTOR Patient name: La Chung Date of test: 06/17/2024 Type of test: TTE w/Doppler Hospital #: 0 Date of : 1950 (F) Hand Loom Weaver: MICHAEL Blankenship Referring Physician: DANA CANCINO MD Contrast Agent: 1.1 ml Optison Administered, (1.9 ml wasted). Contrast Administered by: Supervised/Interpreted by: Parth ??MD April Diagnosis: Location: [facility] Reason for test: Shortness of Breath MV Structure: Normal, ?MV Motion: Normal, ?? Mitral Annulus: Normal AV Structure: tricuspid and is Normal, ?? AV Motion: Normal Aotic root: Normal, ?TM: Normal, ?? PV: Normal Valvular Vegetations: none seen, ?Mass/Thrombi: none seen RA: Normal Measurements: ?M-Mode ?Normal ? Aotic Root: ? <3.8 ? LA: ? <3.8 ? RV: ? <2.8 ? LV(ED): ? <5.7 ? LV(ES): ? Variable ?2D Linear Normal ? Aotic Root: 3.3 cm ?<3.6 ? Ao Indexed: 1.9 cm/M2 <2.0 ? LA: ? <3.8 ? RV: ? 2.9 cm ?<4.2 ? LV(ED): ? 4.3 cm ?<5.3 ? LV(ES): ? 2.8 cm ?<3.5 ?2D Vol. ?? Normal ?Indexed ?? Indexed Normal RA: ? 16.0 ml ? 9.0 ml/M2 ? 9-33 ? LA: ? 59.0 ml ? 33.1 ml/M2 ?16-34 ? RV: ? <11.6 ? LV(ED): ? 79.0 ml ?? 46-106 ?44.3 ml/M2 ?<62 ? LV(ES): ? 27.0 ml ?? 14-42 ? 15.2 ml/M2 ?<25 ?3D Vol. ? Indexed Normal LV(ED): ?<62 ? LV(ES): ?<24 ? LV EF: 66 % ?? (Normal: >=54%) ?? LV Septum: 1.2 cm ?(Normal: <0.9 cm) Wall Motion Scoring (1=Normal 2=Hypo 3=Akinetic 4=Dyskin./Aneurysm 0=Not visualized) Parasternal Long Scott:MAS=1 BAS=1 MIL=1 ALLEY=1 Parasternal Short Scott:MAS=1 MIS=1 SC=1 MIL=1 MAL=1 MA=1 Apical 4 Chambers:=1 MIS=1 BIS=1 BAL=1 MAL=1 AL=1 AC=1 Apical 2 Chambers:AI=1 SC=1 BI=1 BA=1 MA=1 AA=1 AC=1 LV Global Longitudinal Strain: -16% ??(Normal <-17%) RV Global Longitudinal Strain: LV Function: Normal LV Ejection Fraction, ??(EF=54-74%) RV Function: Normal Septal Motion: Normal Pericardial Effusion: trace Atrial Septum: Normal DOPPLER/COLOR FLOW DOPPLER RESULTS: Diastolic Function: Grade I, altered relax. w/N. LA pres. Tricuspid Valve: normal TV Pulmonic Valve: Mild DC AV Regurgitation: No AR seen AV Stenosis: no AV Area: ??cm2 AV Pressure Gradient (mmHg): Mean: 0, Peak:0 MV Regurgitation: No MR seen MV Stenosis: no MS MV Area: ??cm2 MV Pressure Gradient (mmHg): Mean: 0 MV ERO: ??cm Regurg. Vol.: ??ml/beat Regurg. Frac.: ??% PA Pressure: ??mmHg DOPPLER/COLOR FOLOW DOPPLER COMMENTS: No AR seen, No MR seen, no , no MS, normal TV, Mild DC. Diastolic function: Grade I, altered relax. w/N. LA pres. CONTRAST: 1.1 ml Optison Administered, (1.9 ml wasted). SUMMARY: LV size is normal. LVEF 66%. Increased LV wall thickness. Normal RV systolic function. Normal LA. No significant valve disease. Unable to estimate PASP due to lack of adequate TR jet. RA pressure is normal. Increased epicardial fat pad. Confirmed on ??06/17/2024 - 17:02:19 by Parth ??MD April By signing this report, the attending custom miller certifies that he or she has personally supervised and interpreted the echocardiogram and has reviewed and or edited and agrees with the written comments contained within the report. Procedure Note Parth Chen MD - 06/17/2024 Patient name: La Chung Date of test: 06/17/2024 Type of test: TTE w/Doppler Hospital #: 0 Date of : 1950 (F) Hand Loom Weaver: MICHAEL Blankenship Referring Physician: DANA CANCINO MD Contrast Agent: 1.1 ml Optison Administered, (1.9 ml wasted). Contrast Administered by: Supervised/Interpreted by: Parth Chen MD Diagnosis: Location: [facility] Reason for test: Shortness of Breath MV Structure: Normal, MV Motion: Normal, Mitral Annulus: Normal AV Structure: tricuspid and is Normal, AV Motion: Normal Aotic root: Normal, TM: Normal, PV: Normal Valvular Vegetations: none seen, Mass/Thrombi: none seen RA: Normal Measurements: M-Mode Normal Aotic Root: <3.8 LA: <3.8 RV: <2.8 LV(ED): <5.7 LV(ES): Variable 2D Linear Normal Aotic Root: 3.3 cm <3.6 Ao Indexed: 1.9 cm/M2 <2.0 LA: <3.8 RV: 2.9 cm <4.2 LV(ED): 4.3 cm <5.3 LV(ES): 2.8 cm <3.5 2D Vol. Normal Indexed Indexed Normal RA: 16.0 ml 9.0 ml/M2 9-33 LA: 59.0 ml 33.1 ml/M2 16-34 RV: <11.6 LV(ED): 79.0 ml 46-106 44.3 ml/M2 <62 LV(ES): 27.0 ml 14-42 15.2 ml/M2 <25 3D Vol. Indexed Normal LV(ED): <62 LV(ES): <24 LV EF: 66 % (Normal: >=54%) LV Septum: 1.2 cm (Normal: <0.9 cm) Wall Motion Scoring (1=Normal 2=Hypo 3=Akinetic 4=Dyskin./Aneurysm 0=Not visualized) Parasternal Long Scott:MAS=1 BAS=1 MIL=1 ALLEY=1 Parasternal Short Scott:MAS=1 MIS=1 SC=1 MIL=1 MAL=1 MA=1 Apical 4 Chambers:=1 MIS=1 BIS=1 BAL=1 MAL=1 AL=1 AC=1 Apical 2 Chambers:AI=1 SC=1 BI=1 BA=1 MA=1 AA=1 AC=1 LV Global Longitudinal Strain: -16% (Normal <-17%) RV Global Longitudinal Strain: LV Function: Normal LV Ejection Fraction, (EF=54-74%) RV Function: Normal Septal Motion: Normal Pericardial Effusion: trace Atrial Septum: Normal DOPPLER/COLOR FLOW DOPPLER RESULTS: Diastolic Function: Grade I, altered relax. w/N. LA pres. Tricuspid Valve: normal TV Pulmonic Valve: Mild DC AV Regurgitation: No AR seen AV Stenosis: no AV Area: cm2 AV Pressure Gradient (mmHg): Mean: 0, Peak:0 MV Regurgitation: No MR seen MV Stenosis: no MS MV Area: cm2 MV Pressure Gradient (mmHg): Mean: 0 MV ERO: cm Regurg. Vol.: ml/beat Regurg. Frac.: % PA Pressure: mmHg DOPPLER/COLOR FOLOW DOPPLER COMMENTS: No AR seen, No MR seen, no , no MS, normal TV, Mild DC. Diastolic function: Grade I, altered relax. w/N. LA pres. CONTRAST: 1.1 ml Optison Administered, (1.9 ml wasted). SUMMARY: LV size is normal. LVEF 66%. Increased LV wall thickness. Normal RV systolic function. Normal LA. No significant valve disease. Unable to estimate PASP due to lack of adequate TR jet. RA pressure is normal. Increased epicardial fat pad. Confirmed on 06/17/2024 - 17:02:19 by Parth Chen MD By signing this report, the attending custom miller certifies that he or she has personally supervised and interpreted the echocardiogram and has reviewed and or edited and agrees with the written comments contained within the report. us Dana Cancino MD CV ECHO PROCEDURES Final Res ult * (ABNORMAL) eGFR (06/17/2024 1:25 AM FABRIC INSPECTOR) [facility] eGFR 32(L) >=60 mL/min/1. 73 m2 Comment: Interpretive Data Reference Interval Normal ?>/= 90 mL/min/1.73m2 Mildly decreased* ? 60 - 89 mL/min/1.73m2 Mildly to moderately decreased ?45 - 59 mL/min/1.73m2 Moderately to severely decreased ??30 - 44 mL/min/1.73m2 Severely decreased ?15 - 29 mL/min/1.73m2 Kidney Failure ?< 15 ??mL/min/1.73m2 *Relative to young adult level Estimated glomerular filtration rate is determined by the 2020 CKD-EPI equation recommended by the National Kidney Foundation (A Unifying Approach to GFR Estimation: Recommendations of the NKF-ASK Task Force on Reassessing the Inclusion of Race in Diagnosing Kidney Disease, JASN 202). The CKD-EPI equation should not be used for patients with unstable renal function and has not been validated in children and those over 70. Current interpretive data was last reviewed 2021. Blood 06/17/2024 1:25 AM FABRIC INSPECTOR 06/17/2024 1:49 AM FABRIC INSPECTOR Nasir Lyons MD LAB BLOOD ORDERABLES Mel aby Result Performing Organization Address [facility] de Phone Number [facility] Department [place] [address] * (ABNORMAL) CBC with auto differential (06/17/2024 1:25 AM FABRIC INSPECTOR) Pathologist [facility] WBC 11.3(H) 3.8 - 9.9 K/cumm Hgb 11.4(L) 11.9 - 15.5 g/dL [facility] Hct 35.1(L) 35.6 - 45.5 % [facility] Plt 156 150 - 400 K/cumm [facility] MPV 10.1 9.1 - 12.3 fL [facility] RBC 3.62(L) 3.90 - 5.20 M/cumm [facility] MCV 97.0(H) 81.3 - 96.4 fL [facility] MCH 31.5 27.1 - 33.3 pg [facility] MCHC 32.5 32.3 - 35.7 g/dL [facility] RDW CV 14.6 11.1 - 14.9 % [facility] RDW SD 52.3(H) 35.7 - 48.1 fL [facility] NRBC abs 0.00 0.00 - 0.01 K/cumm [facility] Blood 06/17/2024 1:25 AM FABRIC INSPECTOR 06/17/2024 1:50 AM FABRIC INSPECTOR Nasir Lyons MD LAB BLOOD ORDERABLES Mel badillo Result Performing Organization Address [facility] Co de Phone Number [facility] Department [place] [address] * (ABNORMAL) Manual Differential (06/17/2024 1:25 AM FABRIC INSPECTOR) Pathologist [facility] Differential Manual Cells Counted 126 [facility] Neutrophil abs 2.8 1.5 - 6.5 K/cumm [facility] Imm gran abs 0.1 0.0 - 0.1 K/cumm [facility] Lymphocyte abs 6.9(H) 0.8 - 3.3 K/cumm [facility] Monocyte abs 1.5(H) 0.2 - 0.8 K/cumm [facility] Neutrophil pct 24.6 % [facility] Comment: Interpretive Data Percent cell count reference ranges are not reported, since discordance with absolute values may lead to misinterpretation of CBC data. Current Interpretive Data was last revised on 2017. Lymphocyte pct 60.3 % [facility] Comment: Interpretive Data Percent cell count reference ranges are not reported, since discordance with absolute values may lead to misinterpretation of CBC data. Current Interpretive Data was last revised on 2017. Monocyte pct 13.5 % [facility] Comment: Interpretive Data Percent cell count reference ranges are not reported, since discordance with absolute values may lead to misinterpretation of CBC data. Current Interpretive Data was last revised on 2017. Metamyelocyte pct 0.8 % [facility] Variant lymph pct 0.8 % [facility] Blood 06/17/2024 1:25 AM FABRIC INSPECTOR 06/17/2024 1:54 AM FABRIC INSPECTOR Nasir Lyons MD LAB BLOOD ORDERABLES Mel l Result Performing Organization Address City/[facility] Co de Phone Number [facility] Department [place] [address] * Magnesium (06/17/2024 1:25 AM FABRIC INSPECTOR) Magnesium 1.8 1.4 - 2.5 mg/dL Blood 06/17/2024 1:25 AM FABRIC INSPECTOR 06/17/2024 1:49 AM FABRIC INSPECTOR Nasir Lyons MD LAB BLOOD ORDERABLES Mel l Result Performing Organization Address City/[facility] Co de Phone Number [facility] Department [place] [address] * Hepatic function panel (06/17/2024 1:25 AM FABRIC INSPECTOR) [facility] Bilirubin, total 0.6 0.1 - 1.2 mg/dL Bilirubin, direct <0.2 0.1 - 0.3 mg/dL [facility] Comment:Reviewed Protein, pl 6.6 6.5 - 8.5 g/dL [facility] Albumin 3.9 3.5 - 5.0 g/dL [facility] Alk phos 75 40 - 130 Units/L [facility] ALT 11 7 - 45 Units/L [facility] AST 25 10 - 45 Units/L [facility] Blood 06/17/2024 1:25 AM FABRIC INSPECTOR 06/17/2024 1:49 AM FABRIC INSPECTOR Nasir Lyons MD LAB BLOOD ORDERABLES Mel l Result [facility] Department [place] [address] * (ABNORMAL) Basic metabolic panel (06/17/2024 1:25 AM FABRIC INSPECTOR) [facility] Sodium 142 135 - 145 mmol/L Potassium, pl 3.6 3.3 - 4.9 mmol/L [facility] Chloride 107 97 - 110 mmol/L [facility] CO2 22 22 - 32 mmol/L [facility] Anion gap 13 2 - 15 mmol/L [facility] BUN 15 6 - 25 mg/dL [facility] Creatinine 1.65(H) 0.60 - 1.10 mg/dL [facility] Glucose 107 70 - 199 mg/dL [facility] Comment: Interpretive Data Fasting glucose >/= 126 mg/dl is diagnostic for diabetes. ?? Fasting is defined as no caloric intake for at least 8 hours. Fasting glucose between 100 mg/dl to 125 mg/dl is diagnostic of prediabetes. In a patient with classic symptoms of hyperglycemia or hyperglycemic crisis, a random glucose >/= 200 mg/dl is diagnostic for diabetes. In the absence of unequivocal hyperglycemia, results should be confirmed by repeat testing. The classification and Diagnosis of Diabetes Diabetes Care 2021; 46: S19-S40. Current interpretive data was last revised 2022. Calcium 8.3(L) 8.5 - 10.3 mg/dL [facility] Blood 06/17/2024 1:25 AM FABRIC INSPECTOR 06/17/2024 1:49 AM FABRIC INSPECTOR Nasir Lyons MD LAB BLOOD ORDERABLES Mel l Result [facility] Department [place] [address] * FL Fluoroscopy < 1 Hour (06/16/2024 3:37 PM FABRIC INSPECTOR) Narrative [email or web address] - 06/16/2024 3:37 PM FABRIC INSPECTOR The images from this study are not interpreted by Radiology. ??Please refer to the physician's procedure / OR operative note. Mela Dejesus MD IMG FLUOROSCOPY PROCEDURE S Final Result Performing Organization Address [facility] Co de Phone Number [email or web address] * DC AN ELECTIVE SUPRAGLOTTIC AIRWAY, DC AN PROCEDURE PLACEHOLDER (06/16/2024 3:30 PM FABRIC INSPECTOR) Narrative Danielle Kirk CRNA - 06/16/2024 3:30 PM FABRIC INSPECTOR Danielle Kirk CRNA ? 06/16/2024 ??3:31 PM Airway Patient location: OR Urgency: elective Indications for airway management: anesthesia Difficult airway: no Staff: Supervising provider: Elissa Rosales MD Placed by: PIPELINE INSPECTOR: Danielle Kirk CRNA Emergent airway documentation: Risks and benefits discussed: yes Consent obtained: yes Consent given by: patient Airway prep: Preoxygenated: yes Patient position: sniffing Mask difficulty assessment: 1 - vent by mask Spontaneous ventilation during airway: absent Sedation level during airway: GA Final airway details: Final airway type: supraglottic airway Final supraglottic airway: IGel SGA size: 4 Number of attempts: 1 us Elissa Rosales MD ANESTHESIA ORDERABLES Final R esult * (ABNORMAL) eGFR (06/16/2024 12:50 AM FABRIC INSPECTOR) eGFR 26(L) >=60 mL/min/1. 73 m2 Comment: Interpretive Data Reference Interval Normal ?>/= 90 mL/min/1.73m2 Mildly decreased* ? 60 - 89 mL/min/1.73m2 Mildly to moderately decreased ?45 - 59 mL/min/1.73m2 Moderately to severely decreased ??30 - 44 mL/min/1.73m2 Severely decreased ?15 - 29 mL/min/1.73m2 Kidney Failure ?< 15 ??mL/min/1.73m2 *Relative to young adult level Estimated glomerular filtration rate is determined by the 2020 CKD-EPI equation recommended by the National Kidney Foundation (A Unifying Approach to GFR Estimation: Recommendations of the NKF-ASK Task Force on Reassessing the Inclusion of Race in Diagnosing Kidney Disease, JASN 2020). The CKD-EPI equation should not be used for patients with unstable renal function and has not been validated in children and those over 70. Current interpretive data was last reviewed 2021. Blood 06/16/2024 12:5 0 AM FABRIC INSPECTOR 06/16/2024 1:22 AM FABRIC INSPECTOR us Nasir Lyons MD LAB BLOOD ORDERABLES Mel l Result [facility] Department [place] [address] * (ABNORMAL) CBC with auto differential (06/16/2024 12:50 AM FABRIC INSPECTOR) WBC 11.2(H) 3.8 - 9.9 K/cumm Hgb 11.0(L) 11.9 - 15.5 g/dL [facility] Hct 35.0(L) 35.6 - 45.5 % [facility] Plt 149(L) 150 - 400 K/cumm [facility] MPV 10.1 9.1 - 12.3 fL [facility] RBC 3.53(L) 3.90 - 5.20 M/cumm [facility] MCV 99.2(H) 81.3 - 96.4 fL [facility] MCH 31.2 27.1 - 33.3 pg [facility] MCHC 31.4(L) 32.3 - 35.7 g/dL [facility] RDW CV 15.0(H) 11.1 - 14.9 % [facility] RDW SD 54.4(H) 35.7 - 48.1 fL [facility] NRBC abs 0.00 0.00 - 0.01 K/cumm [facility] Blood 06/16/2024 12:5 0 AM FABRIC INSPECTOR 06/16/2024 1:22 AM FABRIC INSPECTOR us Nasir Lyons MD LAB BLOOD ORDERABLES Mel badillo Result [facility] Department [place] [address] * (ABNORMAL) Manual Differential (06/16/2024 12:50 AM FABRIC INSPECTOR) Differential Manual Cells Counted 124 [facility] Neutrophil abs 1.9 1.5 - 6.5 K/cumm [facility] Imm gran abs 0.0 0.0 - 0.1 K/cumm [facility] Lymphocyte abs 8.0(H) 0.8 - 3.3 K/cumm [facility] Monocyte abs 1.3(H) 0.2 - 0.8 K/cumm [facility] Neutrophil pct 16.9 % [facility] Comment: Interpretive Data Percent cell count reference ranges are not reported, since discordance with absolute values may lead to misinterpretation of CBC data. Current Interpretive Data was last revised on 2017. Lymphocyte pct 71.8 % [facility] Comment: Interpretive Data Percent cell count reference ranges are not reported, since discordance with absolute values may lead to misinterpretation of CBC data. Current Interpretive Data was last revised on 2017. Monocyte pct 11.3 % [facility] Comment: Interpretive Data Percent cell count reference ranges are not reported, since discordance with absolute values may lead to misinterpretation of CBC data. Current Interpretive Data was last revised on 2017. Blood 06/16/2024 12:5 0 AM FABRIC INSPECTOR 06/16/2024 3:05 AM FABRIC INSPECTOR Nasir Lyons MD LAB BLOOD ORDERABLES Mel l Result Performing Organization Address City/[facility]/ZIP Co de Phone Number [facility] Department [place] [address] * Magnesium (06/16/2024 12:50 AM FABRIC INSPECTOR) [facility] Magnesium 1.9 1.4 - 2.5 mg/dL Blood 06/16/2024 12:5 0 AM FABRIC INSPECTOR 06/16/2024 1:22 AM FABRIC INSPECTOR Nasir Lyons MD LAB BLOOD ORDERABLES Mel l Result Performing Organization Address [facility]/ZIP Co de Phone Number [facility] [place] [address] * (ABNORMAL) Hepatic function panel (06/16/2024 12:50 AM FABRIC INSPECTOR) Pathologist [facility] Bilirubin, total 0.8 0.1 - 1.2 mg/dL Bilirubin, direct 0.2 0.1 - 0.3 mg/dL [facility] Comment:Reviewed Protein, pl 6.3(L) 6.5 - 8.5 g/dL [facility] Albumin 4.1 3.5 - 5.0 g/dL [facility] Alk phos 71 40 - 130 Units/L [facility] ALT 9 7 - 45 Units/L [facility] AST 26 10 - 45 Units/L [facility] Blood 06/16/2024 12:5 0 AM FABRIC INSPECTOR 06/16/2024 1:22 AM FABRIC INSPECTOR Nasir Lyons MD LAB BLOOD ORDERABLES Mel l Result Performing Organization Address [facility]/ZIP Co de Phone Number [facility] [place] [place] [address] * (ABNORMAL) Basic metabolic panel (06/16/2024 12:50 AM FABRIC INSPECTOR) [facility] Sodium 141 135 - 145 mmol/L Potassium, pl 4.0 3.3 - 4.9 mmol/L [facility] Chloride 108 97 - 110 mmol/L [facility] CO2 22 22 - 32 mmol/L [facility] Anion gap 11 2 - 15 mmol/L [facility] BUN 17 6 - 25 mg/dL [facility] Creatinine 1.97(H) 0.60 - 1.10 mg/dL [facility] Glucose 107 70 - 199 mg/dL [facility] Comment: Interpretive Data Fasting glucose >/= 126 mg/dl is diagnostic for diabetes. ?? Fasting is defined as no caloric intake for at least 8 hours. Fasting glucose between 100 mg/dl to 125 mg/dl is diagnostic of prediabetes. In a patient with classic symptoms of hyperglycemia or hyperglycemic crisis, a random glucose >/= 200 mg/dl is diagnostic for diabetes. In the absence of unequivocal hyperglycemia, results should be confirmed by repeat testing. The classification and Diagnosis of Diabetes Diabetes Care 2021; 46: S19-S40. Current interpretive data was last revised 2022. Calcium 8.7 8.5 - 10.3 mg/dL [facility] Blood 06/16/2024 12:5 0 AM FABRIC INSPECTOR 06/16/2024 1:22 AM FABRIC INSPECTOR Nasir Lyons MD LAB BLOOD ORDERABLES Mel l Result Performing Organization Address [facility]/ZIP Co de Phone Number [facility] [place] [place] [address] * (ABNORMAL) eGFR (06/15/2024 1:26 AM FABRIC INSPECTOR) eGFR 27(L) >=60 mL/min/1. 73 m2 Comment: Interpretive Data Reference Interval Normal ?>/= 90 mL/min/1.73m2 Mildly decreased* ? 60 - 89 mL/min/1.73m2 Mildly to moderately decreased ?45 - 59 mL/min/1.73m2 Moderately to severely decreased ??30 - 44 mL/min/1.73m2 Severely decreased ?15 - 29 mL/min/1.73m2 Kidney Failure ?< 15 ??mL/min/1.73m2 *Relative to young adult level Estimated glomerular filtration rate is determined by the 2020 CKD-EPI equation recommended by the National Kidney Foundation (A Unifying Approach to GFR Estimation: Recommendations of the NKF-ASK Task Force on Reassessing the Inclusion of Race in Diagnosing Kidney Disease, JASN 2020). The CKD-EPI equation should not be used for patients with unstable renal function and has not been validated in children and those over 70. Current interpretive data was last reviewed 2021. Blood 06/15/2024 1:26 AM FABRIC INSPECTOR 06/15/2024 1:36 AM FABRIC INSPECTOR us Nasir Lyons MD LAB BLOOD ORDERABLES Mel badillo Result [facility] Department [place] [address] * (ABNORMAL) CBC with auto differential (06/15/2024 1:26 AM FABRIC INSPECTOR) WBC 10.5(H) 3.8 - 9.9 K/cumm Hgb 10.9(L) 11.9 - 15.5 g/dL [facility] Hct 34.1(L) 35.6 - 45.5 % [facility] Plt 149(L) 150 - 400 K/cumm [facility] MPV 10.1 9.1 - 12.3 fL [facility] RBC 3.47(L) 3.90 - 5.20 M/cumm [facility] MCV 98.3(H) 81.3 - 96.4 fL [facility] MCH 31.4 27.1 - 33.3 pg [facility] MCHC 32.0(L) 32.3 - 35.7 g/dL [facility] RDW CV 14.8 11.1 - 14.9 % [facility] RDW SD 53.0(H) 35.7 - 48.1 fL [facility] NRBC abs 0.00 0.00 - 0.01 K/cumm [facility] Blood 06/15/2024 1:26 AM FABRIC INSPECTOR 06/15/2024 1:36 AM FABRIC INSPECTOR us Nasir Lyons MD LAB BLOOD ORDERABLES Mel l Result [facility] Department [place] [address] * (ABNORMAL) Manual Differential (06/15/2024 1:26 AM FABRIC INSPECTOR) Differential Manual Cells Counted 122 [facility] Neutrophil abs 4.5 1.5 - 6.5 K/cumm [facility] Imm gran abs 0.0 0.0 - 0.1 K/cumm [facility] Lymphocyte abs 5.8(H) 0.8 - 3.3 K/cumm [facility] Monocyte abs 0.2 0.2 - 0.8 K/cumm [facility] Basophil abs 0.1 0.0 - 0.1 K/cumm [facility] Neutrophil pct 42.6 % [facility] Comment: Interpretive Data Percent cell count reference ranges are not reported, since discordance with absolute values may lead to misinterpretation of CBC data. Current Interpretive Data was last revised on 2017. Lymphocyte pct 49.3 % [facility] Comment: Interpretive Data Percent cell count reference ranges are not reported, since discordance with absolute values may lead to misinterpretation of CBC data. Current Interpretive Data was last revised on 2017. Monocyte pct 1.6 % [facility] Comment: Interpretive Data Percent cell count reference ranges are not reported, since discordance with absolute values may lead to misinterpretation of CBC data. Current Interpretive Data was last revised on 2017. Basophil pct 0.8 % [facility] Comment: Interpretive Data Percent cell count reference ranges are not reported, since discordance with absolute values may lead to misinterpretation of CBC data. Current Interpretive Data was last revised on 2017. Variant lymph pct 5.7 % [facility] RBC morphology Normal [facility] Platelet estimate Adequate [facility] Blood 06/15/2024 1:26 AM FABRIC INSPECTOR 06/15/2024 1:39 AM FABRIC INSPECTOR Nasir Lyons MD LAB BLOOD ORDERABLES Mel l Result Performing Organization Address City/[facility]/ZIP Co de Phone Number [facility] [place] [address] * Magnesium (06/15/2024 1:26 AM FABRIC INSPECTOR) Pathologist [facility] Magnesium 1.8 1.4 - 2.5 mg/dL Blood 06/15/2024 1:26 AM FABRIC INSPECTOR 06/15/2024 1:36 AM FABRIC INSPECTOR Nasir Lyons MD LAB BLOOD ORDERABLES Mel l Result [facility] [place] [address] * (ABNORMAL) Hepatic function panel (06/15/2024 1:26 AM FABRIC INSPECTOR) Bilirubin, total 0.6 0.1 - 1.2 mg/dL Bilirubin, direct <0.2 0.1 - 0.3 mg/dL [facility] Protein, pl 6.3(L) 6.5 - 8.5 g/dL [facility] Albumin 4.0 3.5 - 5.0 g/dL [facility] Alk phos 71 40 - 130 Units/L [facility] ALT 11 7 - 45 Units/L [facility] AST 25 10 - 45 Units/L [facility] Blood 06/15/2024 1:26 AM FABRIC INSPECTOR 06/15/2024 1:36 AM FABRIC INSPECTOR us Nasir Lyons MD LAB BLOOD ORDERABLES Mel l Result [facility] Department [place] [address] * (ABNORMAL) Basic metabolic panel (06/15/2024 1:26 AM FABRIC INSPECTOR) Sodium 139 135 - 145 mmol/L Potassium, pl 4.1 3.3 - 4.9 mmol/L [facility] Chloride 107 97 - 110 mmol/L [facility] CO2 22 22 - 32 mmol/L [facility] Anion gap 10 2 - 15 mmol/L [facility] BUN 18 6 - 25 mg/dL [facility] Creatinine 1.94(H) 0.60 - 1.10 mg/dL [facility] Glucose 127 70 - 199 mg/dL [facility] Comment: Interpretive Data Fasting glucose >/= 126 mg/dl is diagnostic for diabetes. ?? Fasting is defined as no caloric intake for at least 8 hours. Fasting glucose between 100 mg/dl to 125 mg/dl is diagnostic of prediabetes. In a patient with classic symptoms of hyperglycemia or hyperglycemic crisis, a random glucose >/= 200 mg/dl is diagnostic for diabetes. In the absence of unequivocal hyperglycemia, results should be confirmed by repeat testing. The classification and Diagnosis of Diabetes Diabetes Care 202; 46: S19-S40. Current interpretive data was last revised 2022. Calcium 8.9 8.5 - 10.3 mg/dL [facility] Blood 06/15/2024 1:26 AM FABRIC INSPECTOR 06/15/2024 1:36 AM FABRIC INSPECTOR us Nasir Lyons MD LAB BLOOD ORDERABLES Mel l Result [facility] Department [place] [address] * ECG 12 lead (06/14/2024 8:35 PM FABRIC INSPECTOR) Ventricular Rate EKG/Min 68 BPM [facility] Atrial Rate 68 BPM [facility] DC-Interval (MSEC) 134 ms [facility] QRS-Interval (MSEC) 104 ms [facility] QT-Interval (MSEC) 430 ms [facility] QTc 457 ms [facility] P Scott -28 degrees [facility] R Scott -2 degrees [facility] T Scott 2 degrees [facility] Diagnosis Normal sinus rhythm Normal ECG When compared with ECG of 17-APR-2019 07:30, No significant change was found Confirmed by PIPER WILSON M.D ([id number]) on 06/15/2024 5:17:10 PM [facility] 06/14/2024 8:35 PM FABRIC INSPECTOR 06/15/2024 5:17 PM FABRIC INSPECTOR us Eren Lund MD ECG ORDERABLES Final Result Performing Organization Address [facility] Co de Phone Number [facility] * CT Abdomen Pelvis W Contrast (06/14/2024 2:26 AM FABRIC INSPECTOR) Anatomical Region Laterality Modality Body N/A Computed Tomogra phy 06/14/2024 4:36 AM FABRIC INSPECTOR Impressions 06/14/2024 9:47 AM FABRIC INSPECTOR 1. Slight increase in size of multiple metastatic hepatic lesions, which is concerning for progression of disease. No significant change in size of additional soft tissue lesions and lymphadenopathy in the abdomen and pelvis. No small bowel obstruction. 2. Decrease enhancement of the right kidney with new mild hydroureteronephrosis, which may be due to partial obstruction from retroperitoneal lymphadenopathy which tethers the right proximal ureter. 3. New small right pleural effusion. Dictated by: Aaron Vee MD The radiology attending physician has personally reviewed this study, and had reviewed and/or edited this written report and agrees with it. Electronically signed by: Becky Golden M.D. 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 This exam was requested to evaluate for small bowel obstruction due to upper abdominal pain. TECHNIQUE: ??Transaxial computed tomographic images of the abdomen and pelvis were obtained with intravenous contrast according to the standard protocol after the uneventful administration of 75 mL Opti-Ray 350 intravenous contrast. COMPARISON: CT 05/06/2024 FINDINGS: ?? The partially imaged lower chest demonstrates multiple subcentimeter pleural-based nodules, which are not significantly changed compared to 05/06/2024. There is a new small right pleural effusion. No left pleural effusion. The heart size is mildly enlarged, similar to prior. Trace pericardial fluid. There is a small hiatal hernia. Again seen are numerous encapsulated and hypoattenuating lesions throughout the liver, many of which are not significantly changed in size. However, some lesions have slightly increased in size. For example, there is a 3.8 cm lesion within segment 4 which previously measured 3.5 cm (series 2, image 41) as well as a segment 2/4a lesion that measures 3.5 cm, previously 2.8 cm (series 2, image 25). In addition, there is a new wedge-shaped area of hypoattenuation within segment 6, which may represent transient hepatic attenuation differences. The main portal vein, splenic vein, and superior mesenteric vein are patent. The gallbladder is surgically absent. There is mild intrahepatic and extrahepatic biliary ductal dilatation, likely reservoir effect. Mild fatty atrophy of the pancreas. There is similar splenomegaly with multiple hypoattenuating lesions. This is overall similar to prior. Normal adrenal glands. There is slight decreased enhancement of the right kidney compared to the left, which appears to be new. There is new mild right hydroureteronephrosis with an extrarenal pelvis with mild urothelial enhancement of the proximal right ureter, which is immediately tethered to a conglomerate of right retroperitoneal lymph nodes, which are similar in size. There is no left hydroureteronephrosis however the left ureter also abuts nonenlarged left retroperitoneal lymph nodes, which are surrounded by fat stranding. There is a right renal cyst. The urinary bladder is decompressed. The uterus is surgically absent. Again seen is a unchanged 3.2 cm enhancing mass located over the vaginal cuff on series 2, image 174. The caliber of the small bowel and colon is within normal limits. There are postsurgical changes of a right hemicolectomy with left lower quadrant ostomy creation. There is a unchanged parastomal hernia containing multiple loops of small bowel on the antimesenteric side. Again seen are multiple serosal deposits, which are not significantly changed. For example, an enhancing serosal deposit along the sigmoid colon on series 2, image 151. There is a mild increase in mesenteric fat stranding at the tip of the liver. There is a similar amount of retroperitoneal fat stranding as well as multiple enlarged retroperitoneal lymph nodes. The caliber of the abdominal aorta is within normal limits. There is moderate calcification of the abdominal aorta and its branches. No suspicious osseous lesions. 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 This exam was requested to evaluate for small bowel obstruction due to upper abdominal pain. TECHNIQUE: Transaxial computed tomographic images of the abdomen and pelvis were obtained with intravenous contrast according to the standard protocol after the uneventful administration of 75 mL Opti-Ray 350 intravenous contrast. COMPARISON: CT 05/06/2024 FINDINGS: The partially imaged lower chest demonstrates multiple subcentimeter pleural-based nodules, which are not significantly changed compared to 05/06/2024. There is a new small right pleural effusion. No left pleural effusion. The heart size is mildly enlarged, similar to prior. Trace pericardial fluid. There is a small hiatal hernia. Again seen are numerous encapsulated and hypoattenuating lesions throughout the liver, many of which are not significantly changed in size. However, some lesions have slightly increased in size. For example, there is a 3.8 cm lesion within segment 4 which previously measured 3.5 cm (series 2, image 41) as well as a segment 2/4a lesion that measures 3.5 cm, previously 2.8 cm (series 2, image 25). In addition, there is a new wedge-shaped area of hypoattenuation within segment 6, which may represent transient hepatic attenuation differences. The main portal vein, splenic vein, and superior mesenteric vein are patent. The gallbladder is surgically absent. There is mild intrahepatic and extrahepatic biliary ductal dilatation, likely reservoir effect. Mild fatty atrophy of the pancreas. There is similar splenomegaly with multiple hypoattenuating lesions. This is overall similar to prior. Normal adrenal glands. There is slight decreased enhancement of the right kidney compared to the left, which appears to be new. There is new mild right hydroureteronephrosis with an extrarenal pelvis with mild urothelial enhancement of the proximal right ureter, which is immediately tethered to a conglomerate of right retroperitoneal lymph nodes, which are similar in size. There is no left hydroureteronephrosis however the left ureter also abuts nonenlarged left retroperitoneal lymph nodes, which are surrounded by fat stranding. There is a right renal cyst. The urinary bladder is decompressed. The uterus is surgically absent. Again seen is a unchanged 3.2 cm enhancing mass located over the vaginal cuff on series 2, image 174. The caliber of the small bowel and colon is within normal limits. There are postsurgical changes of a right hemicolectomy with left lower quadrant ostomy creation. There is a unchanged parastomal hernia containing multiple loops of small bowel on the antimesenteric side. Again seen are multiple serosal deposits, which are not significantly changed. For example, an enhancing serosal deposit along the sigmoid colon on series 2, image 151. There is a mild increase in mesenteric fat stranding at the tip of the liver. There is a similar amount of retroperitoneal fat stranding as well as multiple enlarged retroperitoneal lymph nodes. The caliber of the abdominal aorta is within normal limits. There is moderate calcification of the abdominal aorta and its branches. No suspicious osseous lesions. IMPRESSION: 1. Slight increase in size of multiple metastatic hepatic lesions, which is concerning for progression of disease. No significant change in size of additional soft tissue lesions and lymphadenopathy in the abdomen and pelvis. No small bowel obstruction. 2. Decrease enhancement of the right kidney with new mild hydroureteronephrosis, which may be due to partial obstruction from retroperitoneal lymphadenopathy which tethers the right proximal ureter. 3. New small right pleural effusion. Dictated by: Aaron Vee MD The radiology attending physician has personally reviewed this study, and had reviewed and/or edited this written report and agrees with it. Electronically signed by: Becky Golden M.D. us Kelton Keys MD IMG CT PROCEDURES Final Result * (ABNORMAL) eGFR (06/14/2024 12:23 AM FABRIC INSPECTOR) eGFR 29(L) >=60 mL/min/1. 73 m2 Comment: Interpretive Data Reference Interval Normal ?>/= 90 mL/min/1.73m2 Mildly decreased* ? 60 - 89 mL/min/1.73m2 Mildly to moderately decreased ?45 - 59 mL/min/1.73m2 Moderately to severely decreased ??30 - 44 mL/min/1.73m2 Severely decreased ?15 - 29 mL/min/1.73m2 Kidney Failure ?< 15 ??mL/min/1.73m2 *Relative to young adult level Estimated glomerular filtration rate is determined by the 2020 CKD-EPI equation recommended by the National Kidney Foundation (A Unifying Approach to GFR Estimation: Recommendations of the NKF-ASK Task Force on Reassessing the Inclusion of Race in Diagnosing Kidney Disease, JASN 2020). The CKD-EPI equation should not be used for patients with unstable renal function and has not been validated in children and those over 70. Current interpretive data was last reviewed 2021. Blood 06/14/2024 12:2 3 AM FABRIC INSPECTOR 06/14/2024 12:35 AM FABRIC INSPECTOR us Kelton Keys MD LAB BLOOD ORDERABLES Final Res ult [facility] Department [place] [address] * (ABNORMAL) Differential, auto (06/14/2024 12:23 AM FABRIC INSPECTOR) Neutrophil abs 3.8 1.5 - 6.5 K/cumm Imm gran abs 0.0 0.0 - 0.1 K/cumm [facility] Lymphocyte abs 2.4 0.8 - 3.3 K/cumm [facility] Monocyte abs 3.4(H) 0.2 - 0.8 K/cumm [facility] Eosinophil abs 0.0 0.0 - 0.5 K/cumm [facility] Basophil abs 0.0 0.0 - 0.1 K/cumm [facility] Neutrophil pct 39.4 % [facility] Comment: Confirmed by smear review Interpretive Data Percent cell count reference ranges are not reported, since discordance with absolute values may lead to misinterpretation of CBC data. Current Interpretive Data was last revised on 2017. Imm gran pct 0.4 % [facility] Comment: Interpretive Data Percent cell count reference ranges are not reported, since discordance with absolute values may lead to misinterpretation of CBC data. Current Interpretive Data was last revised on 2017. Lymphocyte pct 24.8 % [facility] Comment: Interpretive Data Percent cell count reference ranges are not reported, since discordance with absolute values may lead to misinterpretation of CBC data. Current Interpretive Data was last revised on 2017. Monocyte pct 35.1 % [facility] Comment: Interpretive Data Percent cell count reference ranges are not reported, since discordance with absolute values may lead to misinterpretation of CBC data. Current Interpretive Data was last revised on 2017. Eosinophil pct 0.0 % [facility] Comment: Interpretive Data Percent cell count reference ranges are not reported, since discordance with absolute values may lead to misinterpretation of CBC data. Current Interpretive Data was last revised on 2017. Basophil pct 0.3 % [facility] Comment: Interpretive Data Percent cell count reference ranges are not reported, since discordance with absolute values may lead to misinterpretation of CBC data. Current Interpretive Data was last revised on 2017. Blood 06/14/2024 12:2 3 AM FABRIC INSPECTOR 06/14/2024 12:36 AM FABRIC INSPECTOR us Kelton Keys MD LAB BLOOD ORDERABLES Final Res ult [facility] Department [place] [address] * (ABNORMAL) Pro B-type natriuretic peptide (06/14/2024 12:23 AM FABRIC INSPECTOR) NT-proBNP 3,993(H) <=450 pg/mL Comment: Interpretive Comments: A. Dyspnea in Acute Care Setting All Ages: ?< 300 pg/ml, acute heart failure unlikely. < 50 yrs: ?300 - 450 pg/ml, further investigation warranted. ? > 450 pg/ml, acute heart failure likely. 50 - 74 yrs: ? 300 - 900 pg/ml, further investigation warranted. ? > 900 pg/ml, acute heart failure likely . > or = 75 yrs: ? 450 - 1800 pg/ml, further investigation warranted. ? > 1800 pg/ml, acute heart failure likely. B. Non-acute Setting < 75 yrs ? < 125 pg/ml, rules out heart failure. ? > or = 125 pg/ml, further investigation warranted. > or = 75 yrs ?< 450 pg/ml, rules out heart failure. ? > or = 450 pg/ml, further investigation warranted. - Knowledge of each individual patient's NT-proBNP range may be more useful than using similar cut-points for every patient. Please note that marked elevations in NT-proBNP levels may be observed in state other than Left Ventricular Congestive Failure, including: acute coronary syndromes, right heart strain/failure (including pulmonary embolism and cor pulmonale), critical illness, renal failure, as well as advanced age. - References: 1. Rex GARCIA et.al. Eur Heart J. 2006:27:330-337. 2. Leidy RW, Teresa MONK. J. AM Padmini Cardiol: Cardiovasc Imag. 2009;2: 216- 225. Interpretive Data Last Revised Date: 2018. Blood 06/14/2024 12:2 3 AM FABRIC INSPECTOR 06/14/2024 12:35 AM FABRIC INSPECTOR us Armida Guajardo MD LAB BLOOD ORDERABLES Final Resul t [facility] Department [place] [address] * (ABNORMAL) CBC with auto differential (06/14/2024 12:23 AM FABRIC INSPECTOR) WBC 9.8 3.8 - 9.9 K/cumm Hgb 11.6(L) 11.9 - 15.5 g/dL [facility] Hct 36.6 35.6 - 45.5 % [facility] Plt 145(L) 150 - 400 K/cumm [facility] MPV 10.9 9.1 - 12.3 fL [facility] RBC 3.68(L) 3.90 - 5.20 M/cumm [facility] MCV 99.5(H) 81.3 - 96.4 fL [facility] MCH 31.5 27.1 - 33.3 pg [facility] MCHC 31.7(L) 32.3 - 35.7 g/dL [facility] RDW CV 14.7 11.1 - 14.9 % [facility] RDW SD 54.8(H) 35.7 - 48.1 fL [facility] NRBC abs 0.00 0.00 - 0.01 K/cumm [facility] Blood 06/14/2024 12:2 3 AM FABRIC INSPECTOR 06/14/2024 12:36 AM FABRIC INSPECTOR us Kelton Keys MD LAB BLOOD ORDERABLES Final Res ult [facility] Department [place] [address] * (ABNORMAL) Comprehensive metabolic panel (06/14/2024 12:23 AM FABRIC INSPECTOR) Sodium 139 135 - 145 mmol/L Potassium, pl 4.6 3.3 - 4.9 mmol/L [facility] Chloride 110 97 - 110 mmol/L [facility] CO2 19(L) 22 - 32 mmol/L [facility] Anion gap 10 2 - 15 mmol/L [facility] BUN 16 6 - 25 mg/dL [facility] Creatinine 1.79(H) 0.60 - 1.10 mg/dL [facility] Glucose 141 70 - 199 mg/dL [facility] Comment: Interpretive Data Fasting glucose >/= 126 mg/dl is diagnostic for diabetes. ?? Fasting is defined as no caloric intake for at least 8 hours. Fasting glucose between 100 mg/dl to 125 mg/dl is diagnostic of prediabetes. In a patient with classic symptoms of hyperglycemia or hyperglycemic crisis, a random glucose >/= 200 mg/dl is diagnostic for diabetes. In the absence of unequivocal hyperglycemia, results should be confirmed by repeat testing. The classification and Diagnosis of Diabetes Diabetes Care 2021; 46: S19-S40. Current interpretive data was last revised 2022. Calcium 8.9 8.5 - 10.3 mg/dL [facility] Bilirubin, total 0.4 0.1 - 1.2 mg/dL [facility] Protein, pl 6.4(L) 6.5 - 8.5 g/dL [facility] Albumin 3.9 3.5 - 5.0 g/dL [facility] Alk phos 79 40 - 130 Units/L [facility] ALT 8 7 - 45 Units/L [facility] AST 30 10 - 45 Units/L [facility] Blood 06/14/2024 12:2 3 AM FABRIC INSPECTOR 06/14/2024 12:35 AM FABRIC INSPECTOR Kelton Keys MD LAB BLOOD ORDERABLES Final Res ult Performing Organization Address City/[facility]/ZIP Co de Phone Number [facility] Department [place] [address] * (ABNORMAL) Urinalysis reflex to microscopic and culture Urine, clean voided (06/13/2024 6:05 PM FABRIC INSPECTOR) Color, ur Straw Yellow Clarity, ur Clear Clear [facility] Specific gravity, ur 1.015 1.003 - 1.030 [facility] pH, urine 6.0 [facility] Comment: Interpretive Data ? Urine pH is affected by diet, medications, systemic acid-base disturbances, and renal tubular function. ??pH may affect urinary stone formation. ??For example, urine pH below 6.0 may help reduce the tendency for calcium phosphate stones and pH greater than 6.0 may reduce the tendency for uric acid stone formation. Source: [facility] Current Interpretive Data was last revised on 2017 Protein, ur ql 1+(A) Negative [facility] Glucose, ur ql Negative Negative [facility] Ketones, ur Trace Negative [facility] Bilirubin, ur Negative Negative [facility] Blood, ur 1+(A) Negative [facility] Urobilinogen, ur <2.0 <2.0 mg/dL [facility] Nitrite, ur Negative Negative [facility] Leukocyte esterase, ur 1+(A) Negative [facility] UA reflex comment Reflex to microscopic UA will be performed. [facility] Urine, clean voided 06/13/2024 6:05 PM FABRIC INSPECTOR 06/13/2024 6:14 PM FABRIC INSPECTOR us Sharona Gomez NP LAB MICROBIOLOGY - GENERA L ORDERABLES Final Result Performing Organization Address City/[facility]/ZIP Co de Phone Number [facility] Department [place] [address] * (ABNORMAL) Urinalysis, microscopic only (06/13/2024 6:05 PM FABRIC INSPECTOR) WBC, ur 6-10(A) 0 - 5 /HPF RBC, ur 3-5(A) 0 - 2 /HPF [facility] Epithelial cells, squamous, ur 1-5 0 - 5 /HPF [facility] Bacteria, ur Trace(A) [facility] Mucous, ur Present(A) [facility] Hyaline casts, ur 1-5 0 - 10 /LPF [facility] Culture Reflex Comment Reflex conditions for urine culture (WBC >10) not met. [facility] Urine, clean voided 06/13/2024 6:05 PM FABRIC INSPECTOR 06/13/2024 6:14 PM FABRIC INSPECTOR Sharona Gomez [employer]ANTER LAB URINE ORDERABLES Mel badillo Result [facility] Department [place] [address] * Respiratory pathogen panel Nasopharyngeal (06/13/2024 4:56 PM FABRIC INSPECTOR) Influenza A RNA Not Detected Not Detected Influenza B RNA Not Detected Not Detected [facility] RSV RNA Not Detected Not Detected [facility] COVID-19 RNA Not Detected Not Detected [facility] Coronavirus 229E RNA Not Detected Not Detected [facility] Coronavirus HKU1 RNA Not Detected Not Detected [facility] Coronavirus NL63 RNA Not Detected Not Detected [facility] Coronavirus OC43 RNA Not Detected Not Detected [facility] Adenovirus DNA Not Detected Not Detected [facility] Metapneumovirus RNA Not Detected Not Detected [facility] Rhinovirus/Enterov irus RNA Not Detected Not Detected [facility] Parainfluenza 1 RNA Not Detected Not Detected [facility] Parainfluenza 2 RNA Not Detected Not Detected [facility] Parainfluenza 3 RNA Not Detected Not Detected [facility] Parainfluenza 4 RNA Not Detected Not Detected [facility] B. pertussis DNA Not Detected Not Detected [facility] B. parapertussis DNA Not Detected Not Detected [facility] C. pneumoniae DNA Not Detected Not Detected [facility] M. pneumoniae DNA Not Detected Not Detected [facility] Nasopharyngeal 06/13/2024 4: 56 PM FABRIC INSPECTOR 06/13/2024 5:34 PM FABRIC INSPECTOR Dylan GOMEZ [facility] - 06/13/2024 6:38 PM FABRIC INSPECTOR Is the Patient experiencing symptoms consistent with COVID?->Yes Surveillance testing for transplant patient?->No ??Interpretive Data The [employer] FilmArray Respiratory Panel (RP2.1) assay is a multiplexed real-time PCR based nucleic acid test capable of simultaneous qualitative detection and identification of multiple respiratory viral and bacterial nucleic acids, including SARS Coronavirus 2 (the causative agent of COVID-19). The following bacteria, viruses and virus subtypes can be identified using the FilmArray RP2.1 assay: Bordetella pertussis, Bordetella parapertussis, Chlamydia pneumoniae, Mycoplasma pneumoniae, Adenovirus, SARS Coronavirus 2, seasonal coronaviruses (Coronavirus HKU1, Coronavirus NL63, Coronavirus 229E, and Coronavirus OC43), Influenza A, Influenza A subtype H1, Influenza A subtype H3, Influenza A subtype 2009 H1, Influenza B, Metapneumovirus, Parainfluenza 1, Parainfluenza 2, Parainfluenza 3, Parainfluenza 4, RSV, Rhinovirus/Enterovirus. Due to the genetic similarity between human Rhinovirus and Enterovirus, the FilmArray RP2.1 assay cannot reliably differentiate them. Coronavirus OC43 may cross-react with some isolates of Coronavirus HKU1. ??A dual positive result may be due to cross-reactivity or may indicate a co-infection. The detection and identification of specific viral and bacterial nucleic acids from individuals exhibiting signs and symptoms of a respiratory infection aids in the diagnosis of respiratory infection if used in conjunction with other clinical and epidemiological information. ??The results of this test should not be used as the sole basis for diagnosis, treatment, or other management decisions. ??Negative results in the setting of a respiratory illness may be due to infection with pathogens that are not detected by this test. ??Positive results do not rule out infection/co-infection with other organisms. ??The agent(s) detected by the FilmArray RP2.1 may not be the definite cause of disease. ??Additional testing (lab, imaging, etc.) may be necessary when evaluating a patient with possible respiratory tract infection. The FilmArray RP2.1 assay has FDA clearance for testing of SUGARCANE PLANTER swabs. ??The performance of additional specimen types has been assessed by the performing laboratory. ??The performance characteristics of this assay have been determined by [facility] Molecular Infectious Disease Laboratory. Current interpretive data was last revised on 22. us Sharona Gomez NP LAB MICROBIOLOGY - GENERA L ORDERABLES Final Result Performing Organization Address [facility] Co de Phone Number [facility] [place] [address] * POC Blood Gas and Chemistries, Arterial - (06/13/2024 4:53 PM FABRIC INSPECTOR) [facility] Lactate, POC 1.3 0.7 - 2.2 mmol/L Hct, POC 37.0 36.3 - 45.3 % [facility] Total Hb, POC 12.2 11.9 - 15.5 g/dL [facility] Blood 06/13/2024 4:53 PM FABRIC INSPECTOR 06/13/2024 4:53 PM FABRIC INSPECTOR us Eren Lund MD LAB POCT ORDERABLES - DEVICE Final Result Performing Organization Address [facility] [place] [address] * (ABNORMAL) eGFR (06/13/2024 4:30 PM FABRIC INSPECTOR) Pathologist [facility] eGFR 25(L) >=60 mL/min/1. 73 m2 Comment: Interpretive Data Reference Interval Normal ?>/= 90 mL/min/1.73m2 Mildly decreased* ? 60 - 89 mL/min/1.73m2 Mildly to moderately decreased ?45 - 59 mL/min/1.73m2 Moderately to severely decreased ??30 - 44 mL/min/1.73m2 Severely decreased ?15 - 29 mL/min/1.73m2 Kidney Failure ?< 15 ??mL/min/1.73m2 *Relative to young adult level Estimated glomerular filtration rate is determined by the 2020 CKD-EPI equation recommended by the National Kidney Foundation (A Unifying Approach to GFR Estimation: Recommendations of the NKF-ASK Task Force on Reassessing the Inclusion of Race in Diagnosing Kidney Disease, JASN 2020). The CKD-EPI equation should not be used for patients with unstable renal function and has not been validated in children and those over 70. Current interpretive data was last reviewed 2021. Blood 06/13/2024 4:30 PM FABRIC INSPECTOR 06/13/2024 4:57 PM FABRIC INSPECTOR Sharona Gomez NP LAB BLOOD ORDERABLES Mel l Result Performing Organization Address [facility] Co de Phone Number [facility] Department [place] [employer] [place] [address] * Senior staff review (06/13/2024 4:30 PM FABRIC INSPECTOR) Pathologist [facility] Senior Staff Review Specimen Blood Senior Staff Review Review Done [facility] Comment:Reviewed by senior james salcedo. 06/14/2024 07:47:49 FABRIC INSPECTOR by MATT Blankenship. Blood 06/13/2024 4:30 PM FABRIC INSPECTOR 06/13/2024 5:36 PM FABRIC INSPECTOR Eren Lund MD LAB BLOOD ORDERABLES Final Re sult Performing Organization Address [facility] Co de Phone Number [facility] [place] [employer] [place] [address] * (ABNORMAL) CBC with auto differential (06/13/2024 4:30 PM FABRIC INSPECTOR) WBC 10.1(H) 3.8 - 9.9 K/cumm Hgb 12.0 11.9 - 15.5 g/dL [facility] Hct 37.4 35.6 - 45.5 % [facility] Plt 142(L) 150 - 400 K/cumm [facility] MPV 9.7 9.1 - 12.3 fL [facility] RBC 3.78(L) 3.90 - 5.20 M/cumm [facility] MCV 98.9(H) 81.3 - 96.4 fL [facility] MCH 31.7 27.1 - 33.3 pg [facility] MCHC 32.1(L) 32.3 - 35.7 g/dL [facility] RDW CV 14.6 11.1 - 14.9 % [facility] RDW SD 53.0(H) 35.7 - 48.1 fL [facility] NRBC abs 0.00 0.00 - 0.01 K/cumm [facility] Blood 06/13/2024 4:30 PM FABRIC INSPECTOR 06/13/2024 5:36 PM FABRIC INSPECTOR Sharona Gomez [employer] LAB BLOOD ORDERABLES Edit ed Result - Final [facility] Department [place] [address] * (ABNORMAL) Manual Differential (06/13/2024 4:30 PM FABRIC INSPECTOR) Differential Manual Cells Counted 118 [facility] Neutrophil abs 5.1 1.5 - 6.5 K/cumm [facility] Lymphocyte abs 4.4(H) 0.8 - 3.3 K/cumm [facility] Monocyte abs 0.6 0.2 - 0.8 K/cumm [facility] Neutrophil pct 50.9 % [facility] Comment: Interpretive Data Percent cell count reference ranges are not reported, since discordance with absolute values may lead to misinterpretation of CBC data. Current Interpretive Data was last revised on 2017. Lymphocyte pct 28.8 % [facility] Comment: Interpretive Data Percent cell count reference ranges are not reported, since discordance with absolute values may lead to misinterpretation of CBC data. Current Interpretive Data was last revised on 2017. Monocyte pct 5.9 % [facility] Comment: Interpretive Data Percent cell count reference ranges are not reported, since discordance with absolute values may lead to misinterpretation of CBC data. Current Interpretive Data was last revised on 2017. Variant lymph pct 14.4 % [facility] RBC morphology Present(A) [facility] Anisocytosis Slight(A) [facility] Poikilocytosis Slight(A) [facility] Macrocytes 3-7/HPF(A) [facility] Schistocytes 1-2/HPF(A) [facility] Blood 06/13/2024 4:30 PM FABRIC INSPECTOR 06/13/2024 5:36 PM FABRIC INSPECTOR us Sharona Gomez NP LAB BLOOD ORDERABLES Mel l Result Performing Organization Address [facility] de Phone Number [facility] Department [place] [address] * Phosphorus (06/13/2024 4:30 PM FABRIC INSPECTOR) Phosphorus, pl 2.7 2.3 - 4.5 mg/dL Blood (Blood, Venous) 06/13/2024 4:30 PM FABRIC INSPECTOR 06/13/2024 4:57 PM FABRIC INSPECTOR Sharona Gomez NP LAB BLOOD ORDERABLES Mel l Result Performing Organization Address [facility] de Phone Number [facility] Department [place] [address] * Magnesium (06/13/2024 4:30 PM FABRIC INSPECTOR) Magnesium 1.9 1.4 - 2.5 mg/dL Blood (Blood, Venous) 06/13/2024 4:30 PM FABRIC INSPECTOR 06/13/2024 4:57 PM FABRIC INSPECTOR Sharona Gomez NP LAB BLOOD ORDERABLES Mel l Result Performing Organization Address [facility] Co de Phone Number [facility] Department [place] [address] * (ABNORMAL) Comprehensive metabolic panel (06/13/2024 4:30 PM FABRIC INSPECTOR) Sodium 139 135 - 145 mmol/L Potassium, pl 4.4 3.3 - 4.9 mmol/L [facility] Chloride 107 97 - 110 mmol/L [facility] CO2 22 22 - 32 mmol/L [facility] Anion gap 10 2 - 15 mmol/L [facility] BUN 18 6 - 25 mg/dL [facility] Creatinine 2.03(H) 0.60 - 1.10 mg/dL [facility] Glucose 121 70 - 199 mg/dL [facility] Comment: Interpretive Data Fasting glucose >/= 126 mg/dl is diagnostic for diabetes. ?? Fasting is defined as no caloric intake for at least 8 hours. Fasting glucose between 100 mg/dl to 125 mg/dl is diagnostic of prediabetes. In a patient with classic symptoms of hyperglycemia or hyperglycemic crisis, a random glucose >/= 200 mg/dl is diagnostic for diabetes. In the absence of unequivocal hyperglycemia, results should be confirmed by repeat testing. The classification and Diagnosis of Diabetes Diabetes Care 2021; 46: S19-S40. Current interpretive data was last revised 2022. Calcium 9.8 8.5 - 10.3 mg/dL [facility] Bilirubin, total 0.6 0.1 - 1.2 mg/dL [facility] Protein, pl 6.6 6.5 - 8.5 g/dL [facility] Albumin 4.2 3.5 - 5.0 g/dL [facility] Alk phos 85 40 - 130 Units/L [facility] ALT 14 7 - 45 Units/L [facility] AST 32 10 - 45 Units/L [facility] Blood 06/13/2024 4:30 PM FABRIC INSPECTOR 06/13/2024 4:57 PM FABRIC INSPECTOR us Sharona Gomez NP LAB BLOOD ORDERABLES Mel aby Result [facility] Department [place] [address] * (ABNORMAL) eGFR (06/09/2024 1:27 PM FABRIC INSPECTOR) eGFR 30(L) >=60 mL/min/1. 73 m2 Comment: Interpretive Data Reference Interval Normal ?>/= 90 mL/min/1.73m2 Mildly decreased* ? 60 - 89 mL/min/1.73m2 Mildly to moderately decreased ?45 - 59 mL/min/1.73m2 Moderately to severely decreased ??30 - 44 mL/min/1.73m2 Severely decreased ?15 - 29 mL/min/1.73m2 Kidney Failure ?< 15 ??mL/min/1.73m2 *Relative to young adult level Estimated glomerular filtration rate is determined by the 2020 CKD-EPI equation recommended by the National Kidney Foundation (A Unifying Approach to GFR Estimation: Recommendations of the NKF-ASK Task Force on Reassessing the Inclusion of Race in Diagnosing Kidney Disease, JASN 2020). The CKD-EPI equation should not be used for patients with unstable renal function and has not been validated in children and those over 70. Current interpretive data was last reviewed 2021. Blood 06/09/2024 1:27 PM FABRIC INSPECTOR 06/09/2024 1:40 PM FABRIC INSPECTOR us Claude Browning MD LAB BLOOD ORDERABLES Mel badillo Result [facility] Department [place] [address] * (ABNORMAL) Chromogranin A (06/09/2024 1:27 PM FABRIC INSPECTOR) Pathologist [facility] Chromogranin A 4537(H) <93 ng/mL [place] [facility] Comment: Impaired renal or hepatic function or treatment with proton pump inhibitors may result in artifactual elevations of Chromogranin A. ADDITIONAL INFORMATION The testing method is a homogeneous time-resolved immunofluorescent assay manufactured by [employer] and performed on the [employer] Kryptor Compact Plus. ? Values obtained with different assay methods or kits may be different and cannot be used interchangeably. ? Test results cannot be interpreted as absolute evidence for the presence or absence of malignant disease. In some immunoassays, the presence of unusually high concentrations of analyte may result in a high-dose hook effect. This may result in a lower or even normal measured analyte concentration. If the reported result is inconsistent with the clinical presentation, the laboratory should be alerted for troubleshooting. For diagnostic purposes, these immunoassay results should always be assessed in conjunction with the patients medical history, clinical examination and other findings. Test Performed by: [place] [address] Burglary Investigator: Carley Tony Ph.D.; CLIA# [id number] Blood 06/09/2024 1:27 PM FABRIC INSPECTOR 06/09/2024 3:08 PM FABRIC INSPECTOR Eren Lund MD LAB BLOOD ORDERABLES Final Re sult Performing Organization Address [facility] Co de Phone Number [facility]NERMINN[facility] Department [place] [address] [place] [facility] * (ABNORMAL) Vitamin D 25 hydroxy (06/09/2024 1:27 PM FABRIC INSPECTOR) Vitamin D 25-OH 16(L) 30 - 80 ng/mL Blood 06/09/2024 1:27 PM FABRIC INSPECTOR 06/09/2024 1:40 PM FABRIC INSPECTOR Eren Lund MD LAB BLOOD ORDERABLES Final Re sult Performing Organization Address [facility] Co de Phone Number [facility]REG[facility]IE [facility] Department [place] [address] * Phosphorus (06/09/2024 1:27 PM FABRIC INSPECTOR) Pathologist [facility] Phosphorus, pl 3.1 2.3 - 4.5 mg/dL Blood 06/09/2024 1:27 PM FABRIC INSPECTOR 06/09/2024 1:40 PM FABRIC INSPECTOR us Eren Lund MD LAB BLOOD ORDERABLES Final Re sult [facility] Department [place] [address] * (ABNORMAL) Lipid panel (06/09/2024 1:27 PM FABRIC INSPECTOR) Pathologist [facility] Cholesterol 135 30 - 199 mg/dL Comment: Interpretive Data Ages < or = 19 years ??Acceptable: ? <170 mg/dL ??Borderline high: ??170-199 mg/dL ??High: ? >or= 200 mg/dL Ages > or = 20 years ??Desirable: ?<200 mg/dL ??Borderline high: ??200-239 mg/dL ??High: ? >or= 240 mg/dL Literature References: 1. Expert Panel on Integrated Guidelines for Cardiovascular Health and Risk Reduction in Children and Adolescents. Pediatrics 2011;128:S213 2. NCEP Expert Panel. Circulation 2004;110:227 Current Interpretive Data was last revised on 2018. Triglycerides 160(H) <=149 mg/dL [facility] Comment: Interpretive Data Ages < or = 9 years ??Acceptable: ? <75 mg/dL ??Borderline high: ??75-99 mg/dL ??High: ? >or= 100 mg/dL Ages 10 to 20 years ??Acceptable: ? <90 mg/dL ??Borderline high: ??90-129 mg/dL ??High: ? >or= 130 mg/dL Ages > or = 20 years ??Desirable: ?<150 mg/dL ??Borderline high: ??150-199 mg/dL ??High: ? 200-499 mg/dL ?Very high: ?? >or= 499 mg/dL Literature References: 1. Expert Panel on Integrated Guidelines for Cardiovascular Health and Risk Reduction in Children and Adolescents. Pediatrics 2011;128:S213 2. NCEP Expert Panel. Circulation 2004;110:227 Current Interpretive Data was last revised on 2018. HDL 39(L) >=40 mg/dL [facility] Comment: Interpretive Data Ages < or = 19 years ??Acceptable: ? >45 mg/dL ??Borderline low: ?? 40-45 mg/dL ??Low: ? <40 mg/dL Ages > or = 20 years ??Desirable: ?>or= 60 mg/dL ??Low: ? <40 mg/dL Literature References: 1. Expert Panel on Integrated Guidelines for Cardiovascular Health and Risk Reduction in Children and Adolescents. Pediatrics 2011;128:S213 2. NCEP Expert Panel. Circulation 2004;110:227 Current Interpretive Data was last revised on 2018. LDL, calculated 68 <=129 mg/dL [facility]ON [facility] Comment: Interpretive Data Ages < or = 19 years ??Acceptable: ? <110 mg/dL ??Borderline high: ??110-129 mg/dL ??High: ?>or= 130 mg/dL Ages > or = 20 years ??Optimal: ? <100 mg/dL ??Near optimal: ?100-129 mg/dL ??Borderline high: ?? 130-159 mg/dL ??High: ?>160 mg/dL Calculated using the Quinn LDL-C estimating equation. This equation was implemented on 2024. Prior to this date LDL-C was estimated using the Friedewald equation. Literature References: 1. Expert Panel on Integrated Guidelines for Cardiovascular Health and Risk Reduction in Children and Adolescents. Pediatrics 2011;128:S213 2. NCEP Expert Panel. Circulation 2004;110:227 3. Kai M et al. CAMILO Cardiol. 2019November 05;5(5):540-548. doi: 10.1001/[email or web address].2020.0013 Current Interpretive Data was last revised on 2024. Non-HDL Cholesterol 96 mg/dL [facility] Comment: Interpretive Data Ages < or = 19 years ??Acceptable: ?<120 mg/dL ??Borderline high: ??120-144 mg/dL ??High: ?>145 mg/dL Ages > or = 20 years ??When triglycerides are >200 mg/dL, Non-HDL cholesterol is a secondary target of ? therapy with treatment goals that are 30 mg/dL greater than the LDL cholesterol target. ? Literature References: 1. Expert Panel on Integrated Guidelines for Cardiovascular Health and Risk Reduction in Children and Adolescents. Pediatrics 2011;128:S213 2. NCEP Expert Panel. Circulation 2004;110:227 Current Interpretive Data was last revised on 2018. Chol/HDL ratio 3 [facility] Blood 06/09/2024 1:27 PM FABRIC INSPECTOR 06/09/2024 1:40 PM FABRIC INSPECTOR Eren Lund MD LAB BLOOD ORDERABLES Final Re sult [facility] Department [place] [address] * (ABNORMAL) Comprehensive metabolic panel (06/09/2024 1:27 PM FABRIC INSPECTOR) Sodium 140 135 - 145 mmol/L Potassium, pl 4.1 3.3 - 4.9 mmol/L [facility] Chloride 109 97 - 110 mmol/L [facility] CO2 24 22 - 32 mmol/L [facility] Anion gap 7 2 - 15 mmol/L [facility] BUN 20 6 - 25 mg/dL [facility] Creatinine 1.73(H) 0.60 - 1.10 mg/dL [facility] Glucose 90 70 - 199 mg/dL [facility] Comment: Interpretive Data Fasting glucose >/= 126 mg/dl is diagnostic for diabetes. ?? Fasting is defined as no caloric intake for at least 8 hours. Fasting glucose between 100 mg/dl to 125 mg/dl is diagnostic of prediabetes. In a patient with classic symptoms of hyperglycemia or hyperglycemic crisis, a random glucose >/= 200 mg/dl is diagnostic for diabetes. In the absence of unequivocal hyperglycemia, results should be confirmed by repeat testing. The classification and Diagnosis of Diabetes Diabetes Care 202; 46: S19-S40. Current interpretive data was last revised 2022. Calcium 9.6 8.5 - 10.3 mg/dL [facility] Bilirubin, total 0.6 0.1 - 1.2 mg/dL [facility] Protein, pl 6.4(L) 6.5 - 8.5 g/dL [facility] Albumin 3.9 3.5 - 5.0 g/dL [facility] Alk phos 79 40 - 130 Units/L [facility] ALT 9 7 - 45 Units/L [facility] AST 28 10 - 45 Units/L [facility] Blood 06/09/2024 1:27 PM FABRIC INSPECTOR 06/09/2024 1:40 PM FABRIC INSPECTOR Claude Browning MD LAB BLOOD ORDERABLES Mel l Result Performing Organization Address City/State/[facility] Co de Phone Number [facility] Department [place] [address] * (ABNORMAL) eGFR (05/12/2024 10:26 AM FABRIC INSPECTOR) Pathologist [facility] eGFR 38(L) >=60 mL/min/1. 73 m2 Comment: Interpretive Data Reference Interval Normal ?>/= 90 mL/min/1.73m2 Mildly decreased* ? 60 - 89 mL/min/1.73m2 Mildly to moderately decreased ?45 - 59 mL/min/1.73m2 Moderately to severely decreased ??30 - 44 mL/min/1.73m2 Severely decreased ?15 - 29 mL/min/1.73m2 Kidney Failure ?< 15 ??mL/min/1.73m2 *Relative to young adult level Estimated glomerular filtration rate is determined by the 2020 CKD-EPI equation recommended by the National Kidney Foundation (A Unifying Approach to GFR Estimation: Recommendations of the NKF-ASK Task Force on Reassessing the Inclusion of Race in Diagnosing Kidney Disease, JASN 2020). The CKD-EPI equation should not be used for patients with unstable renal function and has not been validated in children and those over 70. Current interpretive data was last reviewed 2021. Blood 05/12/2024 10:2 6 AM FABRIC INSPECTOR 05/12/2024 10:27 AM FABRIC INSPECTOR us Eren Lund MD LAB BLOOD ORDERABLES Final Re sult [facility] Department [place] [address] * (ABNORMAL) Differential, auto (05/12/2024 10:26 AM FABRIC INSPECTOR) Pathologist [facility] Neutrophil abs 2.5 1.5 - 6.5 K/cumm Comment:Testing performed by : [facility], [address] [place] [id number] Imm gran abs 0.0 0.0 - 0.1 K/cumm [facility] Lymphocyte abs 3.0 0.8 - 3.3 K/cumm [facility] Monocyte abs 2.2(H) 0.2 - 0.8 K/cumm [facility] Eosinophil abs 0.2 0.0 - 0.5 K/cumm [facility] Basophil abs 0.0 0.0 - 0.1 K/cumm [facility] Neutrophil pct 31.2 % [facility] Comment: Interpretive Data Percent cell count reference ranges are not reported, since discordance with absolute values may lead to misinterpretation of CBC data. Current Interpretive Data was last revised on 2017. Imm gran pct 0.3 % [facility] Comment: Interpretive Data Percent cell count reference ranges are not reported, since discordance with absolute values may lead to misinterpretation of CBC data. Current Interpretive Data was last revised on 2017. Lymphocyte pct 37.5 % [facility] Comment: Interpretive Data Percent cell count reference ranges are not reported, since discordance with absolute values may lead to misinterpretation of CBC data. Current Interpretive Data was last revised on 2017. Monocyte pct 28.1 % [facility] Comment: Interpretive Data Percent cell count reference ranges are not reported, since discordance with absolute values may lead to misinterpretation of CBC data. Current Interpretive Data was last revised on 2017. Eosinophil pct 2.5 % [facility] Comment: Interpretive Data Percent cell count reference ranges are not reported, since discordance with absolute values may lead to misinterpretation of CBC data. Current Interpretive Data was last revised on 2017. Basophil pct 0.4 % [facility] Comment: Interpretive Data Percent cell count reference ranges are not reported, since discordance with absolute values may lead to misinterpretation of CBC data. Current Interpretive Data was last revised on 2017. Blood 05/12/2024 10:2 6 AM FABRIC INSPECTOR 05/12/2024 10:27 AM FABRIC INSPECTOR Eren Lund MD LAB BLOOD ORDERABLES Final Re sult [facility] Department of Laboratories [place], [place] [id number] * (ABNORMAL) Chromogranin A (05/12/2024 10:26 AM FABRIC INSPECTOR) Chromogranin A 4282(H) <93 ng/mL [place] ref [facility] Comment: Impaired renal or hepatic function or treatment with proton pump inhibitors may result in artifactual elevations of Chromogranin A. ADDITIONAL INFORMATION The testing method is a homogeneous time-resolved immunofluorescent assay manufactured by [employer] and performed on the [employer]Grid KrFraud Sciencesor Compact Plus. ? Values obtained with different assay methods or kits may be different and cannot be used interchangeably. ? Test results cannot be interpreted as absolute evidence for the presence or absence of malignant disease. In some immunoassays, the presence of unusually high concentrations of analyte may result in a high-dose hook effect. This may result in a lower or even normal measured analyte concentration. If the reported result is inconsistent with the clinical presentation, the laboratory should be alerted for troubleshooting. For diagnostic purposes, these immunoassay results should always be assessed in conjunction with the patients medical history, clinical examination and other findings. Test Performed by: [place] [address] Burglary Investigator: Carley Tony Ph.D.; CLIA# [id number] Blood 05/12/2024 10:2 6 AM FABRIC INSPECTOR 05/12/2024 11:41 AM FABRIC INSPECTOR us Eren Lund MD LAB BLOOD ORDERABLES Final Re sult [facility]IE [facility] Department [place] [address] [place] ref [facility] * (ABNORMAL) CBC with auto differential (05/12/2024 10:26 AM FABRIC INSPECTOR) WBC 7.9 3.8 - 9.9 K/cumm Comment:Testing performed by : [facility], [address] [place] [id number] Hgb 11.3(L) 11.9 - 15.5 g/dL JASON BLACK Comment:Testing performed by : [address] [address] Hct 35.5(L) 35.6 - 45.5 % [facility] Comment:Testing performed by : [address] [address] Plt 129(L) 150 - 400 K/cumm [facility] Comment:Testing performed by : [facility], [address] [address] MPV 9.0(L) 9.1 - 12.3 fL [facility] RBC 3.57(L) 3.90 - 5.20 M/cumm [facility] MCV 99.4(H) 81.3 - 96.4 fL [facility] MCH 31.7 27.1 - 33.3 pg [facility] MCHC 31.8(L) 32.3 - 35.7 g/dL [facility] RDW CV 15.7(H) 11.1 - 14.9 % [facility] RDW SD 57.3(H) 35.7 - 48.1 fL [facility] NRBC abs 0.00 0.00 - 0.01 K/cumm [facility] Blood 05/12/2024 10:2 6 AM FABRIC INSPECTOR 05/12/2024 10:27 AM FABRIC INSPECTOR Eren Lund MD LAB BLOOD ORDERABLES Final Re sult Performing Organization Address City/[facility]/ZIP Co de Phone Number [facility] [place] [address] * (ABNORMAL) Vitamin D 25 hydroxy (05/12/2024 10:26 AM FABRIC INSPECTOR) Pathologist [facility] Vitamin D 25-OH 18(L) 30 - 80 ng/mL Blood 05/12/2024 10:2 6 AM FABRIC INSPECTOR 05/12/2024 11:56 AM FABRIC INSPECTOR Eren Lund MD LAB BLOOD ORDERABLES Final Re sult [facility] [place] [address] * (ABNORMAL) Manual Differential (05/12/2024 10:26 AM FABRIC INSPECTOR) Pathologist [facility] Differential Auto RBC morphology Present(A ) [facility] Anisocytosis Slight(A) [facility] Elliptocytes 3-7/HPF(A ) [facility] Platelet estimate Decreased (A) [facility] Blood 05/12/2024 10:2 6 AM FABRIC INSPECTOR 05/12/2024 10:27 AM FABRIC INSPECTOR Eren Lund MD LAB BLOOD ORDERABLES Final Re sult Performing Organization Address City/[facility]/ZIP Co de Phone Number [facility] [place] [address] * Phosphorus (05/12/2024 10:26 AM FABRIC INSPECTOR) Phosphorus, pl 2.9 2.3 - 4.5 mg/dL Comment:Testing performed by : [address] [address] Blood 05/12/2024 10:2 6 AM FABRIC INSPECTOR 05/12/2024 10:27 AM FABRIC INSPECTOR Eren Lund MD LAB BLOOD ORDERABLES Final Re sult Performing Organization Address [facility] [place] [address] * Magnesium (05/12/2024 10:26 AM FABRIC INSPECTOR) Magnesium 1.5 1.4 - 2.5 mg/dL Comment:Testing performed by : [facility], [address] [place] [address] Blood 05/12/2024 10:2 6 AM FABRIC INSPECTOR 05/12/2024 10:27 AM FABRIC INSPECTOR Eren Lund MD LAB BLOOD ORDERABLES Final Re sult Performing Organization Address City/[facility] Co de Phone Number [facility] [place] [address] * (ABNORMAL) Lipid panel (05/12/2024 10:26 AM FABRIC INSPECTOR) [facility] Cholesterol 128 30 - 199 mg/dL Comment: Interpretive Data Ages < or = 19 years ??Acceptable: ? <170 mg/dL ??Borderline high: ??170-199 mg/dL ??High: ? >or= 200 mg/dL Ages > or = 20 years ??Desirable: ?<200 mg/dL ??Borderline high: ??200-239 mg/dL ??High: ? >or= 240 mg/dL Literature References: 1. Expert Panel on Integrated Guidelines for Cardiovascular Health and Risk Reduction in Children and Adolescents. Pediatrics 2011;128:S213 2. NCEP Expert Panel. Circulation 2004;110:227 Current Interpretive Data was last revised on 2018. Triglycerides 133 <=149 mg/dL JASON BLACK Comment: Interpretive Data Ages < or = 9 years ??Acceptable: ? <75 mg/dL ??Borderline high: ??75-99 mg/dL ??High: ? >or= 100 mg/dL Ages 10 to 20 years ??Acceptable: ? <90 mg/dL ??Borderline high: ??90-129 mg/dL ??High: ? >or= 130 mg/dL Ages > or = 20 years ??Desirable: ?<150 mg/dL ??Borderline high: ??150-199 mg/dL ??High: ? 200-499 mg/dL ?Very high: ?? >or= 499 mg/dL Literature References: 1. Expert Panel on Integrated Guidelines for Cardiovascular Health and Risk Reduction in Children and Adolescents. Pediatrics 2011;128:S213 2. NCEP Expert Panel. Circulation 2004;110:227 Current Interpretive Data was last revised on 2018. HDL 37(L) >=40 mg/dL [facility]ON BLACK Comment: Interpretive Data Ages < or = 19 years ??Acceptable: ? >45 mg/dL ??Borderline low: ?? 40-45 mg/dL ??Low: ? <40 mg/dL Ages > or = 20 years ??Desirable: ?>or= 60 mg/dL ??Low: ? <40 mg/dL Literature References: 1. Expert Panel on Integrated Guidelines for Cardiovascular Health and Risk Reduction in Children and Adolescents. Pediatrics 2011;128:S213 2. NCEP Expert Panel. Circulation 2004;110:227 Current Interpretive Data was last revised on 2018. LDL, calculated 67 <=129 mg/dL [facility] Comment: Interpretive Data Ages < or = 19 years ??Acceptable: ? <110 mg/dL ??Borderline high: ??110-129 mg/dL ??High: ?>or= 130 mg/dL Ages > or = 20 years ??Optimal: ? <100 mg/dL ??Near optimal: ?100-129 mg/dL ??Borderline high: ?? 130-159 mg/dL ??High: ?>160 mg/dL Calculated using the Kai LDL-C estimating equation. This equation was implemented on 2024. Prior to this date LDL-C was estimated using the Friedewald equation. Literature References: 1. Expert Panel on Integrated Guidelines for Cardiovascular Health and Risk Reduction in Children and Adolescents. Pediatrics 2011;128:S213 2. NCEP Expert Panel. Circulation 2004;110:227 3. Kai Schwarz et al. CAMILO Cardiol. 2020 November 05;5(5):540-548. doi: [email or web address] Current Interpretive Data was last revised on 2024. Non-HDL Cholesterol 91 mg/dL [facility] Comment: Interpretive Data Ages < or = 19 years ??Acceptable: ?<120 mg/dL ??Borderline high: ??120-144 mg/dL ??High: ?>145 mg/dL Ages > or = 20 years ??When triglycerides are >200 mg/dL, Non-HDL cholesterol is a secondary target of ? therapy with treatment goals that are 30 mg/dL greater than the LDL cholesterol target. ? Literature References: 1. Expert Panel on Integrated Guidelines for Cardiovascular Health and Risk Reduction in Children and Adolescents. Pediatrics 2011;128:S213 2. NCEP Expert Panel. Circulation 2004;110:227 Current Interpretive Data was last revised on 2018. Chol/HDL ratio 3 [facility] Blood 05/12/2024 10:2 6 AM FABRIC INSPECTOR 05/12/2024 11:56 AM FABRIC INSPECTOR us Erne Lund MD LAB BLOOD ORDERABLES Final Re sult [facility] Department [place] [address] * (ABNORMAL) Comprehensive metabolic panel (05/12/2024 10:26 AM FABRIC INSPECTOR) [facility] Sodium 139 135 - 145 mmol/L Comment:Testing performed by : [facility], [address] [place] [address] Potassium, pl 4.3 3.3 - 4.9 mmol/L [facility] Chloride 109 97 - 110 mmol/L [facility] CO2 22 22 - 32 mmol/L [facility] Anion gap 8 2 - 15 mmol/L [facility] BUN 20 6 - 25 mg/dL [facility] Creatinine 1.44(H) 0.60 - 1.10 mg/dL [facility] Glucose 89 70 - 199 mg/dL [facility] Comment: Interpretive Data Fasting glucose >/= 126 mg/dl is diagnostic for diabetes. ?? Fasting is defined as no caloric intake for at least 8 hours. Fasting glucose between 100 mg/dl to 125 mg/dl is diagnostic of prediabetes. In a patient with classic symptoms of hyperglycemia or hyperglycemic crisis, a random glucose >/= 200 mg/dl is diagnostic for diabetes. In the absence of unequivocal hyperglycemia, results should be confirmed by repeat testing. The classification and Diagnosis of Diabetes Diabetes Care 2021; 46: S19-S40. Current interpretive data was last revised 2022. Calcium 10.1 8.5 - 10.3 mg/dL [facility] Bilirubin, total 0.4 0.1 - 1.2 mg/dL [facility] Protein, pl 6.1(L) 6.5 - 8.5 g/dL [facility] Albumin 4.0 3.5 - 5.0 g/dL [facility] Alk phos 66 40 - 130 Units/L [facility] ALT 21 7 - 45 Units/L [facility] AST 38 10 - 45 Units/L [facility] Blood 05/12/2024 10:2 6 AM FABRIC INSPECTOR 05/12/2024 10:27 AM FABRIC INSPECTOR us Eren Lund MD LAB BLOOD ORDERABLES Final Re sult [facility] Department [place] [address] * CT chest abdomen pelvis with contrast (05/06/2024 8:51 AM CDT) Anatomical Region Laterality Modality Body N/A Computed Tomogra phy 05/06/2024 10:1 4 AM CDT Impressions 05/06/2024 2:34 PM CDT 1. ??Increased size of multiple hepatic lesions compatible with the patient's known metastatic disease. ??Additional soft tissue lesions and lymphadenopathy in the abdomen and pelvis are not significantly changed. ??A right lower lobe pulmonary nodule is mildly increased in size. 2. ??Decompressed urinary bladder with mild adjacent fat stranding; recommend correlation with urinalysis. Dictated by: Leon Addison MD PHD The radiology attending physician has personally reviewed this study, and had reviewed and/or edited this written report and agrees with it. 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 COMPARISON: 02/12/2024 FINDINGS: ?? CHEST: There is mild increase in size of a right lower lobe pulmonary nodule in the medial segment measuring 1.1 x 1.0 cm, previously 1.0 x 0.7 cm on series 2 image 74. No new suspicious pulmonary nodule is seen. ??No pleural effusion or pneumothorax. No new lymphadenopathy is seen in the chest. ??Small hiatal hernia. Normal heart size with no pericardial effusion. ??Right chest port catheter terminates at the superior cavoatrial junction. 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 ABDOMEN/PELVIS: Multiple hepatic lesions compatible with the patient's known metastatic disease are again seen, mildly increased in size compared to the prior examination. ??For example, a segment 4A lesion measuring 3.5 cm on series 3 image 128 previously measured 2.9 cm. ??A hepatic segment 6/7 lesion measuring 3.5 cm on image 131 previously measured 3.1 cm. ??An additional hepatic segment 6 lesion on series 3 image 148 now measures 2.4 cm, presumably 1.8 cm. No biliary ductal dilatation. ??Patent portal vein. ??Surgically absent gallbladder. ??Duodenal diverticulum. Multiple hypodense splenic lesions are not significantly changed compared to the prior examination. Normal adrenal glands. ??Kidneys enhance magically without hydronephrosis. ??Renal cysts are seen. ??No suspicious exophytic renal lesion or hydronephrosis. The bladder is incompletely distended with mild adjacent fat stranding. ??Uterus is surgically absent. ??A 3.2 cm enhancing mass involving the right aspect of the patient's vaginal cuff on series 3 image 258 is not significantly changed compared to the prior examination. ??Precaval lymphadenopathy measuring 4.0 cm on series 3 image 199 is unchanged compared to the prior examination with an adjacent soft tissue deposit. Multiple serosal deposits are again seen with hyperenhancement, for example measuring 1.0 cm on series 3 image 241, unchanged compared to the previous examination. ??No evidence of bowel obstruction. ??No ascites or pneumoperitoneum. The abdominal aorta is mildly calcified and normal in course and caliber. ??There are changes of left lower quadrant ostomy and right hemicolectomy. No suspicious osseous lesion. ??Severe degenerative changes of the lumbar spine. 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 COMPARISON: 02/12/2024 FINDINGS: CHEST: There is mild increase in size of a right lower lobe pulmonary nodule in the medial segment measuring 1.1 x 1.0 cm, previously 1.0 x 0.7 cm on series 2 image 74. No new suspicious pulmonary nodule is seen. No pleural effusion or pneumothorax. No new lymphadenopathy is seen in the chest. Small hiatal hernia. Normal heart size with no pericardial effusion. Right chest port catheter terminates at the superior cavoatrial junction. 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 ABDOMEN/PELVIS: Multiple hepatic lesions compatible with the patient's known metastatic disease are again seen, mildly increased in size compared to the prior examination. For example, a segment 4A lesion measuring 3.5 cm on series 3 image 128 previously measured 2.9 cm. A hepatic segment 6/7 lesion measuring 3.5 cm on image 131 previously measured 3.1 cm. An additional hepatic segment 6 lesion on series 3 image 148 now measures 2.4 cm, presumably 1.8 cm. No biliary ductal dilatation. Patent portal vein. Surgically absent gallbladder. Duodenal diverticulum. Multiple hypodense splenic lesions are not significantly changed compared to the prior examination. Normal adrenal glands. Kidneys enhance magically without hydronephrosis. Renal cysts are seen. No suspicious exophytic renal lesion or hydronephrosis. The bladder is incompletely distended with mild adjacent fat stranding. Uterus is surgically absent. A 3.2 cm enhancing mass involving the right aspect of the patient's vaginal cuff on series 3 image 258 is not significantly changed compared to the prior examination. Precaval lymphadenopathy measuring 4.0 cm on series 3 image 199 is unchanged compared to the prior examination with an adjacent soft tissue deposit. Multiple serosal deposits are again seen with hyperenhancement, for example measuring 1.0 cm on series 3 image 241, unchanged compared to the previous examination. No evidence of bowel obstruction. No ascites or pneumoperitoneum. The abdominal aorta is mildly calcified and normal in course and caliber. There are changes of left lower quadrant ostomy and right hemicolectomy. No suspicious osseous lesion. Severe degenerative changes of the lumbar spine. IMPRESSION: 1. Increased size of multiple hepatic lesions compatible with the patient's known metastatic disease. Additional soft tissue lesions and lymphadenopathy in the abdomen and pelvis are not significantly changed. A right lower lobe pulmonary nodule is mildly increased in size. 2. Decompressed urinary bladder with mild adjacent fat stranding; recommend correlation with urinalysis. Dictated by: Leon Addison MD PHD The radiology attending physician has personally reviewed this study, and had reviewed and/or edited this written report and agrees with it. Electronically signed by: Manny Loya M.D., Ph.D Eren Lund MD IMG CT PROCEDURES Final Resul t * SCAN - OTHER ORDERS (04/30/2024) Provider Scanning Final Result * Protein / creatinine ratio, urine, random (04/14/2024 10:40 AM CDT) Protein, ur, quant 25.2 mg/dL Comment: Interpretive Data No reference range established. Current interpretive data was last revised 2018. Creatinine Ur 178.7 mg/dL [facility] Comment: Interpretive Data No reference range established. Current interpretive data was last revised 2018. Protein/creatinin e ratio 141.0 0.0 - 180.0 mg/g CR [facility] Urine 04/14/2024 10:4 0 AM CDT 04/14/2024 11:52 AM CDT Eren Lund MD LAB URINE ORDERABLES Final Re sult [facility] Department [place] [address] * (ABNORMAL) eGFR (04/14/2024 10:35 AM CDT) eGFR 37(L) >=60 mL/min/1. 73 m2 Comment: Interpretive Data Reference Interval Normal ?>/= 90 mL/min/1.73m2 Mildly decreased* ? 60 - 89 mL/min/1.73m2 Mildly to moderately decreased ?45 - 59 mL/min/1.73m2 Moderately to severely decreased ??30 - 44 mL/min/1.73m2 Severely decreased ?15 - 29 mL/min/1.73m2 Kidney Failure ?< 15 ??mL/min/1.73m2 *Relative to young adult level Estimated glomerular filtration rate is determined by the 2020 CKD-EPI equation recommended by the National Kidney Foundation (A Unifying Approach to GFR Estimation: Recommendations of the NKF-ASK Task Force on Reassessing the Inclusion of Race in Diagnosing Kidney Disease, JASN 2020). The CKD-EPI equation should not be used for patients with unstable renal function and has not been validated in children and those over 70. Current interpretive data was last reviewed 2021. Blood 04/14/2024 10:3 5 AM CDT 04/14/2024 10:35 AM CDT us Eren Lund MD LAB BLOOD ORDERABLES Final Re sult [facility] Department [place] [address] * (ABNORMAL) Differential, auto (04/14/2024 10:35 AM CDT) Neutrophil abs 2.7 1.5 - 6.5 K/cumm Comment:Testing performed by : [facility], [address] [address] Imm gran abs 0.0 0.0 - 0.1 K/cumm [facility] Lymphocyte abs 2.7 0.8 - 3.3 K/cumm [facility] Monocyte abs 1.3(H) 0.2 - 0.8 K/cumm [facility] Eosinophil abs 0.2 0.0 - 0.5 K/cumm [facility] Basophil abs 0.0 0.0 - 0.1 K/cumm [facility] Neutrophil pct 38.7 % [facility] Comment: Interpretive Data Percent cell count reference ranges are not reported, since discordance with absolute values may lead to misinterpretation of CBC data. Current Interpretive Data was last revised on 2017. Imm gran pct 0.3 % [facility] Comment: Interpretive Data Percent cell count reference ranges are not reported, since discordance with absolute values may lead to misinterpretation of CBC data. Current Interpretive Data was last revised on 2017. Lymphocyte pct 39.4 % [facility] Comment: Interpretive Data Percent cell count reference ranges are not reported, since discordance with absolute values may lead to misinterpretation of CBC data. Current Interpretive Data was last revised on 2017. Monocyte pct 18.5 % [facility] Comment: Interpretive Data Percent cell count reference ranges are not reported, since discordance with absolute values may lead to misinterpretation of CBC data. Current Interpretive Data was last revised on 2017. Eosinophil pct 2.8 % [facility] Comment: Interpretive Data Percent cell count reference ranges are not reported, since discordance with absolute values may lead to misinterpretation of CBC data. Current Interpretive Data was last revised on 2017. Basophil pct 0.3 % [facility] Comment: Interpretive Data Percent cell count reference ranges are not reported, since discordance with absolute values may lead to misinterpretation of CBC data. Current Interpretive Data was last revised on 2017. Blood 04/14/2024 10:3 5 AM CDT 04/14/2024 10:35 AM CDT Eren Lund MD LAB BLOOD ORDERABLES Final Re sult [facility] Department [place] [address] * (ABNORMAL) Chromogranin A (04/14/2024 10:35 AM CDT) Chromogranin A 2929(H) <93 ng/mL [facility] Comment: Impaired renal or hepatic function or treatment with proton pump inhibitors may result in artifactual elevations of Chromogranin A. ADDITIONAL INFORMATION The testing method is a homogeneous time-resolved immunofluorescent assay manufactured by [employer] and performed on the [employer] Compact Plus. ? Values obtained with different assay methods or kits may be different and cannot be used interchangeably. ? Test results cannot be interpreted as absolute evidence for the presence or absence of malignant disease. In some immunoassays, the presence of unusually high concentrations of analyte may result in a high-dose hook effect. This may result in a lower or even normal measured analyte concentration. If the reported result is inconsistent with the clinical presentation, the laboratory should be alerted for troubleshooting. For diagnostic purposes, these immunoassay results should always be assessed in conjunction with the patients medical history, clinical examination and other findings. Test Performed by: [place] [address] Burglary Investigator: Carley Tony Ph.D.; CLIA# [id number] Blood 04/14/2024 10:3 5 AM CDT 04/14/2024 11:52 AM CDT us Eren Lund MD LAB BLOOD ORDERABLES Final Re amanuel [facility] Department [place] [address] [place] [facility] * (ABNORMAL) CBC with auto differential (04/14/2024 10:35 AM CDT) WBC 6.8 3.8 - 9.9 K/cumm Comment:Testing performed by : [facility], [address] [place] [address] Hgb 10.8(L) 11.9 - 15.5 g/dL [facility] Comment:Testing performed by : [address] [address] Hct 33.5(L) 35.6 - 45.5 % [facility] Comment:Testing performed by : [facility], [address] [place] [id number] Plt 117(L) 150 - 400 K/cumm [facility] Comment:Testing performed by : [address] [address] MPV 9.9 9.1 - 12.3 fL [facility] RBC 3.42(L) 3.90 - 5.20 M/cumm [facility] MCV 98.0(H) 81.3 - 96.4 fL [facility] MCH 31.6 27.1 - 33.3 pg [facility] MCHC 32.2(L) 32.3 - 35.7 g/dL [facility] RDW CV 16.4(H) 11.1 - 14.9 % [facility] RDW SD 58.2(H) 35.7 - 48.1 fL [facility] NRBC abs 0.00 0.00 - 0.01 K/cumm [facility] Blood 04/14/2024 10:3 5 AM CDT 04/14/2024 10:35 AM CDT us Eren Lund MD LAB BLOOD ORDERABLES Final Re sult [facility] Department [place] [address] * (ABNORMAL) Vitamin D 25 hydroxy (04/14/2024 10:35 AM CDT) Pathologist [facility] Vitamin D 25-OH 19(L) 30 - 80 ng/mL Blood 04/14/2024 10:3 5 AM CDT 04/14/2024 11:52 AM CDT us Eren Lund MD LAB BLOOD ORDERABLES Final Re sult [facility] Department [place] [address] * (ABNORMAL) Manual Differential (04/14/2024 10:35 AM CDT) Differential Auto Neutrophil abs 2.7 1.5 - 6.5 K/cumm [facility] Comment:Testing performed by : [facility], [address] [place] [id number] Imm gran abs 0.0 0.0 - 0.1 K/cumm [facility] Lymphocyte abs 2.7 0.8 - 3.3 K/cumm [facility] Monocyte abs 1.3(H) 0.2 - 0.8 K/cumm [facility] Eosinophil abs 0.2 0.0 - 0.5 K/cumm [facility] Basophil abs 0.0 0.0 - 0.1 K/cumm [facility] Neutrophil pct 38.7 % [facility] Comment: Interpretive Data Percent cell count reference ranges are not reported, since discordance with absolute values may lead to misinterpretation of CBC data. Current Interpretive Data was last revised on 2017. Imm gran pct 0.3 % [facility] Comment: Interpretive Data Percent cell count reference ranges are not reported, since discordance with absolute values may lead to misinterpretation of CBC data. Current Interpretive Data was last revised on 2017. Lymphocyte pct 39.4 % [facility] Comment: Interpretive Data Percent cell count reference ranges are not reported, since discordance with absolute values may lead to misinterpretation of CBC data. Current Interpretive Data was last revised on 2017. Monocyte pct 18.5 % [facility] Comment: Interpretive Data Percent cell count reference ranges are not reported, since discordance with absolute values may lead to misinterpretation of CBC data. Current Interpretive Data was last revised on 2017. Eosinophil pct 2.8 % [facility] Comment: Interpretive Data Percent cell count reference ranges are not reported, since discordance with absolute values may lead to misinterpretation of CBC data. Current Interpretive Data was last revised on 2017. Basophil pct 0.3 % [facility] Comment: Interpretive Data Percent cell count reference ranges are not reported, since discordance with absolute values may lead to misinterpretation of CBC data. Current Interpretive Data was last revised on 2017. RBC morphology Present(A ) [facility] Anisocytosis Slight(A) [facility] Elliptocytes 3-7/HPF(A ) [facility] Platelet estimate Decreased (A) [facility] Blood 04/14/2024 10:3 5 AM CDT 04/14/2024 10:35 AM CDT Eren Lund MD LAB BLOOD ORDERABLES Final Re sult Performing Organization Address [facility] Co de Phone Number [facility] [place] [address] * (ABNORMAL) Phosphorus (04/14/2024 10:35 AM CDT) Phosphorus, pl 1.9(L) 2.3 - 4.5 mg/dL Comment:Testing performed by : [address] [address] Blood 04/14/2024 10:3 5 AM CDT 04/14/2024 10:35 AM CDT Eren Lund MD LAB BLOOD ORDERABLES Final Re sult Performing Organization Address [facility] Co de Phone Number [facility] [place] [address] * (ABNORMAL) Phosphorus (04/14/2024 10:35 AM CDT) Phosphorus, pl 2.0(L) 2.3 - 4.5 mg/dL Comment:Testing performed by : [facility], [address] [place] [id number] Blood 04/14/2024 10:3 5 AM CDT 04/14/2024 10:35 AM CDT Eren Lund MD LAB BLOOD ORDERABLES Final Re sult Performing Organization Address [facility] Co de Phone Number [facility] Department [place] [address] * Magnesium (04/14/2024 10:35 AM CDT) Magnesium 1.5 1.4 - 2.5 mg/dL Comment:Testing performed by : [address] [address] Blood 04/14/2024 10:3 5 AM CDT 04/14/2024 10:35 AM CDT Eren Lund MD LAB BLOOD ORDERABLES Final Re sult Performing Organization Address [facility] de Phone Number [facility] Department [place] [address] * Lipid panel (04/14/2024 10:35 AM CDT) Cholesterol 125 30 - 199 mg/dL Comment: Interpretive Data Ages < or = 19 years ??Acceptable: ? <170 mg/dL ??Borderline high: ??170-199 mg/dL ??High: ? >or= 200 mg/dL Ages > or = 20 years ??Desirable: ?<200 mg/dL ??Borderline high: ??200-239 mg/dL ??High: ? >or= 240 mg/dL Literature References: 1. Expert Panel on Integrated Guidelines for Cardiovascular Health and Risk Reduction in Children and Adolescents. Pediatrics 2011;128:S213 2. NCEP Expert Panel. Circulation 2004;110:227 Current Interpretive Data was last revised on 2018. Triglycerides 130 <=149 mg/dL [facility] Comment: Interpretive Data Ages < or = 9 years ??Acceptable: ? <75 mg/dL ??Borderline high: ??75-99 mg/dL ??High: ? >or= 100 mg/dL Ages 10 to 20 years ??Acceptable: ? <90 mg/dL ??Borderline high: ??90-129 mg/dL ??High: ? >or= 130 mg/dL Ages > or = 20 years ??Desirable: ?<150 mg/dL ??Borderline high: ??150-199 mg/dL ??High: ? 200-499 mg/dL ?Very high: ?? >or= 499 mg/dL Literature References: 1. Expert Panel on Integrated Guidelines for Cardiovascular Health and Risk Reduction in Children and Adolescents. Pediatrics 2011;128:S213 2. NCEP Expert Panel. Circulation 2004;110:227 Current Interpretive Data was last revised on 2018. HDL 40 >=40 mg/dL [facility] Comment: Interpretive Data Ages < or = 19 years ??Acceptable: ? >45 mg/dL ??Borderline low: ?? 40-45 mg/dL ??Low: ? <40 mg/dL Ages > or = 20 years ??Desirable: ?>or= 60 mg/dL ??Low: ? <40 mg/dL Literature References: 1. Expert Panel on Integrated Guidelines for Cardiovascular Health and Risk Reduction in Children and Adolescents. Pediatrics 2011;128:S213 2. NCEP Expert Panel. Circulation 2004;110:227 Current Interpretive Data was last revised on 2018. LDL, calculated 62 <=129 mg/dL [facility] Comment: Interpretive Data Ages < or = 19 years ??Acceptable: ? <110 mg/dL ??Borderline high: ??110-129 mg/dL ??High: ?>or= 130 mg/dL Ages > or = 20 years ??Optimal: ? <100 mg/dL ??Near optimal: ?100-129 mg/dL ??Borderline high: ?? 130-159 mg/dL ??High: ?>160 mg/dL Calculated using the Kai LDL-C estimating equation. This equation was implemented on 2024. Prior to this date LDL-C was estimated using the Friedewald equation. Literature References: 1. Expert Panel on Integrated Guidelines for Cardiovascular Health and Risk Reduction in Children and Adolescents. Pediatrics 2011;128:S213 2. NCEP Expert Panel. Circulation 2004;110:227 3. Kai Schwarz et al. CAMILO Cardiol. 2020 November 05;5(5):540-548. doi: [email or web address] Current Interpretive Data was last revised on 2024. Non-HDL Cholesterol 85 mg/dL [facility] Comment: Interpretive Data Ages < or = 19 years ??Acceptable: ?<120 mg/dL ??Borderline high: ??120-144 mg/dL ??High: ?>145 mg/dL Ages > or = 20 years ??When triglycerides are >200 mg/dL, Non-HDL cholesterol is a secondary target of ? therapy with treatment goals that are 30 mg/dL greater than the LDL cholesterol target. ? Literature References: 1. Expert Panel on Integrated Guidelines for Cardiovascular Health and Risk Reduction in Children and Adolescents. Pediatrics 2011;128:S213 2. NCEP Expert Panel. Circulation 2004;110:227 Current Interpretive Data was last revised on 2018. Chol/HDL ratio 3 [facility] Blood 04/14/2024 10:3 5 AM CDT 04/14/2024 11:52 AM CDT us Eren Lund MD LAB BLOOD ORDERABLES Final Re sult [facility] Department [place] [address] * (ABNORMAL) Comprehensive metabolic panel (04/14/2024 10:35 AM CDT) Sodium 140 135 - 145 mmol/L Comment:Testing performed by : [facility], [address] [place] [id number] Potassium, pl 4.6 3.3 - 4.9 mmol/L [facility] Chloride 111(H) 97 - 110 mmol/L [facility] CO2 24 22 - 32 mmol/L [facility] Anion gap 5 2 - 15 mmol/L [facility] BUN 16 6 - 25 mg/dL [facility] Creatinine 1.46(H) 0.60 - 1.10 mg/dL [facility] Glucose 96 70 - 199 mg/dL [facility] Comment: Interpretive Data Fasting glucose >/= 126 mg/dl is diagnostic for diabetes. ?? Fasting is defined as no caloric intake for at least 8 hours. Fasting glucose between 100 mg/dl to 125 mg/dl is diagnostic of prediabetes. In a patient with classic symptoms of hyperglycemia or hyperglycemic crisis, a random glucose >/= 200 mg/dl is diagnostic for diabetes. In the absence of unequivocal hyperglycemia, results should be confirmed by repeat testing. The classification and Diagnosis of Diabetes Diabetes Care 2021; 46: S19-S40. Current interpretive data was last revised 2022. Calcium 9.5 8.5 - 10.3 mg/dL [facility] Bilirubin, total 0.4 0.1 - 1.2 mg/dL [facility] Protein, pl 5.9(L) 6.5 - 8.5 g/dL [facility] Albumin 3.8 3.5 - 5.0 g/dL [facility] Alk phos 57 40 - 130 Units/L [facility] ALT 18 7 - 45 Units/L [facility] AST 32 10 - 45 Units/L [facility] Blood 04/14/2024 10:3 5 AM CDT 04/14/2024 10:35 AM CDT us Eren Lund MD LAB BLOOD ORDERABLES Final Re sult [facility] Department [place] [address] * Screening Mammogram Bilateral W Seng (06/13/2023 2:01 PM FABRIC INSPECTOR) Anatomical Region Laterality Modality Breast Bilateral Mammography Narrative 06/14/2023 12:40 PM FABRIC INSPECTOR Mammogram Technique: Bilateral Digital Breast Tomosynthesis, Bilateral C-view 2D Screening mammogram. ??Views obtained: ??bilateral craniocaudal and bilateral mediolateral oblique. ??Computer Aided Detection was performed. Mammogram Findings: The present examination has been compared to prior imaging studies performed at [facility] on 12/21/2019, 01/23/2021 and 04/02/2022. There are scattered areas of fibroglandular density. There is no suspicious abnormality in either breast. Impression: There is no mammographic evidence of malignancy. Annual screening mammography is recommended. OVERALL FINAL ASSESSMENT: BI-RADS CATEGORY 1: ??Negative. Procedure Note Hien Kohler MD - 06/14/2023 Mammogram Technique: Bilateral Digital Breast Tomosynthesis, Bilateral C-view 2D Screening mammogram. Views obtained: bilateral craniocaudal and bilateral mediolateral oblique. Computer Aided Detection was performed. Mammogram Findings: The present examination has been compared to prior imaging studies performed at [facility] on 12/21/2019, 01/23/2021 and 04/02/2022. There are scattered areas of fibroglandular density. There is no suspicious abnormality in either breast. Impression: There is no mammographic evidence of malignancy. Annual screening mammography is recommended. OVERALL FINAL ASSESSMENT: BI-RADS CATEGORY 1: Negative. us Self Screening Mammogram IMG MAMMO PROCEDURES Fi nal Result * Hepatitis panel, acute (01/02/2021 2:05 PM CDT) Hep A IgM Nonreactive Nonreactive JASON LEAVITT Comment: Interpretive Data: If Hep A IgM Ab is reported as Equivocal, a new sample should be drawn in two weeks for testing. Current interpretive data was last revised on 19. Hep B core IgM Nonreactive Nonreactive JASON Pacheco Comment: Interpretive Data If HepB Core IgM Ab is reported as Equivocal, a new sample should be drawn in two weeks for testing. Current interpretive data was last revised on 19. Hep C Ab Nonreactive Nonreactive [facility] Comment:Antibodies to HCV no t detected. Does NOT exclude the possibility of recent exposure to HCV. HepBsAg Nonreactive Nonreactive [facility] Blood specimen (specimen) 01/02/2021 2:05 PM CDT 01/02/2021 2:37 PM CDT us Eren Lund MD LAB MICROBIOLOGY - GENERAL OR DERABLES Edited Result - Final [facility] Department [place] [address] * Dexa Axial Skeleton Bone Density 1 or 2 Site (03/10/2020 9:58 AM CDT) Anatomical Region Laterality Modality Body N/A Radiographic Gabbie ging Narrative 03/12/2020 2:39 PM CDT Patient Name: La Chung Date of : 1950 Date of scan: 03/10/2020 Bone mineral density was performed on a [employer] Mobile Discovery Densitometer. ?? Machine Cross-calibration and Precision studies have been performed with a least significant change of 0.024 g/cm at the spine, 0.020 g/cm at the total proximal femur, and 0.014g/cm at the forearm. HISTORY: ??This is a 69 y.o. postmenopausal female. Currently on treatment with vitamin D. Previously treated with Prolia. History of tobacco use: Social History Tobacco Use Smoking Status Never Smoker INDICATIONS: Menopause status FINDINGS: BONE MINERAL DENSITY OF THE LUMBAR SPINE Bone Mineral Density (BMD) of the lumbar spine was measured from L1-L4 and the average density was calculated to be 1.016 gm/cm. This corresponds to a T-score standard deviations from the mean of young adults of -0.3. There is no previous study available for comparison. BONE MINERAL DENSITY OF THE PROXIMAL FEMUR Bone Mineral Density (BMD) of the left hip total was found to be 0.807 gm/cm2. This corresponds to a T-score standard deviations from the mean of young adults of -1.1. Femoral neck is 0.703 gm/cm2 with a T-score ??of -1.3. There is no previous study available for comparison. SUMMARY: Bone mineral density shows evidence of low bone mass in the hip and moderately increased fracture risk. ADDITIONAL COMMENTS: If the patient has a history of a fragility fracture, a fracture that occurred with trauma equivalent to a fall from a standing position or less, then the diagnosis is osteoporosis. The risk of osteoporotic fracture increases approximately 2-fold for each 1.0 SD decrease in T-score. However, low bone density is not the only risk factor for fracture. Other factors include patient? s age, previous osteoporotic fracture or prior fracture as an adult, loss of height of greater than 2 inches, corticosteroid use, risk of falling, risk of injury, and family history of osteoporosis. Not everyone with low bone mineral density has osteoporosis. Osteomalacia and other metabolic bone disorders should also be considered where indicated. ??Patients who have osteoporosis should be evaluated for specific diseases and conditions (secondary causes) that may cause or contribute to bone loss. Consider repeating this study in 1-2 years to assess the patient? s response to treatment, if applicable. It is recommended that any follow up exam be performed on the same machine if possible for better accuracy. DEFINITIONS: Osteoporosis: ??BMD at or below -2.5 T-score Osteopenia (low bone mass): ??BMD between -1.0 and-2.5 T-score. The Bone Health Program adopts the following WHO definitions: Osteoporosis: ??BMD below -2.5 S.D. as compared to the BMD of young normal adults. Osteopenia or Low Bone Mass: ??BMD between -1.0 and -2.5 S.D. below the BMD of young normal adults. Normal Bone Density: ??BMD equal to or greater than -1.0 S.D. as compared to the BMD of young normal adults. References: 1) Cipriano, Annals of Internal Medicine 114(11): ??919-923 (1990) 2) Gracia, Lancet 341 : 72-75 (1992) 3) Black, Journal Bone and Mineral Research 7(6): 633-8 (1991) 4) Shade, Journal Bone and Mineral Research 8(10):1227-33 (1992) The history and data sections of the bone mineral density scan were prepared by Delfina LITTLE) who is accredited by the International Society of Clinical Densitometry. The overall patient assessment and scan interpretation were performed by Lynsey Barth M.D. who is certified by the International Society of Clinical Densitometry. [id number] Oksana ClineClark Rivas SUGARCANE PLANTER IMG DXA PROCEDURES Final Result from Last 3 Months or Most Recently Relevant to Health Maintenance Insurance MEDICARE [facility] MEDICARE [facility] [place] [address] MEDICARE [facility] MEDICARE [facility] Advance Directives For more information, please contact: [phone] * Full Code (Latest Code Status on File) Date Activated Date Inactivated Comments 06/14/2024 3:22 PM 06/20/2024 5:35 PM * Full Code Date Activated Date Inactivated Comments 09/04/2022 7:14 AM 09/05/2022 4:50 AM * Full Code Date Activated Date Inactivated Comments 06/12/2022 11:35 AM 06/13/2022 4:56 AM * Full Code Date Activated Date Inactivated Comments 04/10/2022 10:34 AM 04/10/2022 8:55 PM * Full Code Date Activated Date Inactivated Comments 09/14/2021 12:16 PM 09/14/2021 8:10 PM Care Teams Automotive Technician Relationship Specialty Start Date End Date Julio César Briseno MD PCP - General 10/01/16 Eren Lund MD Referring Physician Medical Oncology 11/25/18 Yohana Bowen MD Radiation Oncologist Radiation Oncology 11/25/18 Alejo Mi MD [id number] [address] Referring Physician Nephrology 03/07/23
--- OUTSIDE RECORDS SUMMARY | 2024-06-25 22:03 | XMS_ITS | Referral Summary ---
Author Organization [facility] Address 1 [place] [address] Care Team Providers Care Dependency Counselor Name Role Phone Julio César Briseno MD Primary Care Provider [phone] Eren Lund MD Unavailable [phone] Yohana Bowen MD Unavailable Alejo Mi MD Unavailable [phone] Encounters Date Type Department Care Team Description 06/23/2024 Telephone [facility] Radiology [address] [place] [address] Dorota Rogers RN 06/23/2024 Orders Only [facility] Nephrology [facility] Advanced Medicine 5th [place] [address] [place] [address] Alejo Mi MD Stage 3b chronic kidney disease (HCC) (Primary Dx); Hypomagnesemia; Benign essential hypertension; Acute cystitis with hematuria; Anemia, unspecified type; Elevated PTHrP level 06/22/2024 Orders Only [facility] Oncology [address] [place] [phone] Eren Lund MD Neuroendocrine carcinoma (HCC) (Primary Dx); 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) 06/22/2024 Telephone [facility] Oncology [address] [place] [phone] Eren Lund MD exchange call/ER follow up 06/22/2024 Telephone [facility] Radiology 1 [place] [address] Dorota Rogers, [place] 06/21/2024 Telephone [facility] Oncology [address] [place] [address] Shaniqua Lawrence RN 06/13/2024 10:27 PM EVENT DECORATOR - 06/20/2024 1:30 PM EVENT DECORATOR Hospital Encounter [address] [phone] Stu Huang MD Tan, Benjamin R., MD Ma, MD Juan Huffman Amrat, MD Pirzada, Dana Henry MD ANNE-MARIE (acute kidney injury) (HCC) (Primary Dx); 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; History of malignant neuroendocrine tumor; 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) Discharge Disposition: Discharge to home or self care 06/17/2024 Orders Only [facility] Oncology [address] [facility] 5 [place] [address] Claude Browning MD 06/17/2024 Orders Only [facility] Radiology 1 [place] [address] Dorota Rogers, [place] 06/16/2024 3:00 PM EVENT DECORATOR Anesthesia Event [facility] Operating Room 1 [place] [address] Elissa Rosales MD Jaffer, Danish, MD 06/16/2024 Telephone [facility] Radiology 1 [place] [address] Juice Garcia, [place] 06/16/2024 2:37 PM EVENT DECORATOR - 06/16/2024 3:52 PM EVENT DECORATOR Surgery [facility] Operating Room 1 [place] [address] Mela Dejesus MD CYSTOSCOPY 06/13/2024 4:24 PM EVENT DECORATOR - 06/13/2024 11:59 PM EVENT DECORATOR Hospital Encounter [facility] [place] [address] Dehydration (Primary Dx); Nausea; Hypertension, unspecified type Discharge Disposition: Discharge to home or self care 06/13/2024 Telephone [facility] Bone Marrow Transplant [facility] Floor 6 [place] [address] Sunshine George RN Vomiting 06/12/2024 Orders Only [facility] Oncology [address] [place] [address] Floor 5 [place] [phone] Claude Browning MD 06/11/2024 Telephone [facility] Radiology 1 [place] [address] Dorota Rogers RN 06/10/2024 Orders Only [facility] Oncology [address] [place] [address] Eren Lund MD Neuroendocrine carcinoma (HCC) (Primary Dx); 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) 06/09/2024 1:15 PM EVENT DECORATOR Clinical Support [facility] - Lab Collection [facility] Floor 5 [place] [address] Neuroendocrine carcinoma (HCC); 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) 06/09/2024 Orders Only [facility] Oncology [address] [place] [address] Floor 5 [place] [phone] Claude Browning MD Neuroendocrine carcinoma (HCC) (Primary Dx) 06/09/2024 2:15 PM EVENT DECORATOR Infusion [facility] - Infusion [address] [facility] Floor 5 [place] [address] 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 Dx); Neuroendocrine carcinoma (HCC); Neuro-endocrine carcinoma (HCC); 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) 06/09/2024 11:00 AM EVENT DECORATOR Office Visit [facility] Oncology [address] [place] [address] Floor 5 [place] [phone] Claude Browning MD Neuroendocrine carcinoma (HCC) (Primary Dx); 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) 06/08/2024 Telephone [facility] Radiology 1 [place] [address] Dorota Rogers, RN 05/29/2024 Telephone [facility] Oncology [address] [facility] Floor 5 [place] [phone] Renay Renee, [place] 05/29/2024 10:45 AM EVENT DECORATOR Office Visit [facility] Dermatology [address] [facility] [address] [place] [phone] Po Newberry MD PhD Actinic keratosis (Primary Dx); Purpura (HCC); Family history of melanoma; Seborrheic keratosis; Multiple benign nevi; Milia 05/26/[address] [facility] - Infusion Pharmacy [address] [facility] Floor 6 [place] [address] Callei Yousif CPhT 05/26/2024 9:00 AM EVENT DECORATOR Consult [facility] Radiation Oncology at [facility] [address] [place] [phone] Yohana Bowen MD Neuro-endocrine carcinoma (HCC); 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); 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) 05/22/2024 Orders Only [facility] Oncology [address] [place] [phone] Eren Lund MD Neuroendocrine carcinoma (HCC) (Primary Dx); 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) 05/21/2024 9:00 AM EVENT DECORATOR Office Visit [facility] Radiology, Interventional Radiology [address] [facility] [address] [place] [address] Mikey Meraz MD Stage 3b chronic kidney disease (HCC) (Primary Dx); Neuro-endocrine carcinoma (HCC); 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); 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); 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); Anemia due to stage 3a chronic kidney disease (HCC) 05/15/2024 Telephone [facility] Radiation Oncology at [facility] [address] [place] [phone] Yohana Bowen MD 05/14/[address] [facility] - Infusion Pharmacy [address] [facility] Floor 6 [place] [address] Idania Pat CMA [employer] PA 05/13/2024 Orders Only [facility] Oncology [address] [place] [phone] Eren Lund MD Neuro-endocrine carcinoma (HCC) (Primary Dx) 05/13/2024 Orders Only [address] [address] Eren Lund MD 05/13/2024 Orders Only [facility] Oncology [address] [place] [phone] Eren Lund MD 05/13/2024 Orders Only [facility] Oncology [address] [place] [phone] Eren Lund MD Neuroendocrine carcinoma (HCC) (Primary Dx); 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) 05/13/2024 Orders Only [facility] Oncology [address] [place] [phone] Eren Lund MD 05/13/2024 Telephone [facility] Radiology [address] [place] [address] Dorota Rogers, RN 05/13/2024 Telephone [facility] Radiology 1 [place] [address] Dorota Rogers, RN 05/13/2024 Orders Only [address] [address] Yoana Murray [facility] 05/12/2024 Orders Only [facility] Oncology [address] [place] [phone] Eren Lund MD 05/12/2024 Orders Only [facility] Oncology [address] [place] [phone] Eren Lund MD 05/12/2024 11:45 AM EVENT DECORATOR Infusion [address] [address] 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 Dx); Neuroendocrine carcinoma (HCC); Neuro-endocrine carcinoma (HCC); 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) 05/12/2024 10:00 AM EVENT DECORATOR Clinical Support [address] [address] Neuro-endocrine carcinoma (HCC); Neuroendocrine carcinoma (HCC); 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); Research study patient 05/12/2024 10:45 AM EVENT DECORATOR Office Visit [facility] Oncology [address] [place] [phone] Eren Lund MD Neuro-endocrine carcinoma (HCC) (Primary Dx); 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); 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) 05/08/2024 Orders Only [facility] Oncology [address] [place] [phone] Eren Lund MD Research study patient (Primary Dx) 05/06/2024 8:06 AM CDT - 05/06/2024 11:59 PM CDT Hospital Encounter [facility] Rad[facility] [address] [place] [address] Eren Lund MD Neuroendocrine carcinoma (HCC) Discharge Disposition: Discharge to home or self care 04/30/2024 Orders Only [facility] Health Information Management 1 [place] [address] Scanning, Provider 04/14/2024 Orders Only [facility] Oncology [address] [facility] 5 [place] [address] Hien Jaimes, [facility] 04/14/2024 12:15 PM CDT Research [facility] Pick-Up/CTRU Fingerprint Classifier [address] [address] Neuro-endocrine carcinoma (HCC) (Primary Dx) 04/14/2024 11:45 AM CDT Infusion [address] [address] 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 Dx); Neuroendocrine carcinoma (HCC) 04/14/2024 10:00 AM CDT Clinical Support [address] [address] Neuro-endocrine carcinoma (HCC); Neuroendocrine carcinoma (HCC); 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) 04/14/2024 10:45 AM CDT Office Visit [facility] Oncology [address] [place] [phone] Eren Lund MD Neuroendocrine carcinoma (HCC) (Primary Dx); Neuro-endocrine carcinoma (HCC); 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); Neuroendocrine carcinoma (CMS/HCC) (HCC) 04/03/2024 Orders Only [facility] Oncology [address] [place] [phone] Eren Lund MD Neuroendocrine carcinoma (HCC) (Primary Dx) from Last 3 Months Allergies Active Allergy Reactions Criticality Noted Date Comments Ezetimibe-Simvastatin Muscle pain,Other (See comments),Unknown Medium 01/11/2012 Muscle weakness Morphine Blisters,Rash High 11/20/2020 Ramipril Cough Low 12/30/2017 Medications simvastatin (ZOCOR) 20 mg tablet Take 1 tablet (20 mg total) by mouth nightly Active ostomy supplies [facility] Patient has colostomy and needs Cavilon 3M [...] 1 tablet (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) by mouth electrical lineworker before breakfast 90 tablet 3 11/28/19 24 [...] or bladder pain) 20 tablet 06/20/20 24 025 Active ascorbic acid, vitamin C, 500 mg capsuleIndicat ions:supplemen t Take 1 tablet by mouth electrical lineworker before breakfast 07/04/20 16 Discontinued(S top Taking at Discharge) coenzyme K95-[id number] E 100-5 mg-unit capsuleIndicat ions:supplemen t Take 1 tablet by mouth electrical lineworker before breakfast Discontinued(S top Taking at Discharge) [...] Taking at Discharge) 0.9 % sodium chloride ([facility] sodium chloride 0.9%) injectionIndic ations:line care [...] BY MOUTH 1 HOUR BEFORE APPOINTMENT 01/27/20 24 024 Discontinued(S top Taking at Discharge) ipratropium (ATROVENT) 42 mcg (0.06 %) nasal spray [place] 1 spray twice a day by nasal route for 13 days. 04/28/20 24 024 Discontinued Active Problems Problem Noted Date Diagnosed Date Exertional dyspnea 06/17/2024 Assessment & Plan (06/18/2024 10:44 AM EVENT DECORATOR): Reports noting increased exertional dyspnea over last year or so. Nt-probnp elevated on admission - TTE with grade 1 diastolic dysfunction, thickened LV but otherwise normal systolic function EF 66% and normal valvular function ANNE-MARIE (acute kidney injury) (H CC) and Mild right hydroureteronephrosis 06/14/2024 Assessment & Plan (06/20/2024 11:38 PM EVENT DECORATOR): Cr b/l is 1.3-1.5. It is 2 [...] 06/14/2024 Assessment & Plan (06/17/2024 3:29 PM EVENT DECORATOR): Likely related to ANNE-MARIE and R ureteral process. -Improved and tolerating oral intake -PPI IV BID->oral BID for now. -Nausea control. Pain control. HTN (hypertension) 06/14/2024 Assessment & Plan (06/20/2024 11:37 PM EVENT DECORATOR): Home amlodipine. Losartan held throughout admission due to ANNE-MARIE and blood pressure reasonably controlled on amlodipine. Can consider restarting outpatient if uptrend noted Anxiety 06/14/2024 Assessment & Plan (06/14/2024 3:48 PM EVENT DECORATOR): She reports taking duloxetine 30 daily for over a year. 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 Received denosumab 03/30 120mg SQ. Ca on presentation to [facility] 8.2; following surgical procedure, Ca acutely [...] 03/30 120mg SQ. Ca on presentation to [facility] 8.2; following surgical procedure, Ca acutely [...] 03/30 120mg SQ. Ca on presentation to [facility] 8.2; following surgical procedure, Ca acutely [...] 03/30 120mg SQ. Ca on presentation to [facility] 8.2; following surgical procedure, Ca acutely [...] 10/03/2015 Assessment & Plan (06/19/2024 9:47 PM EVENT DECORATOR): Of the ileum, w/ mets to the liver, omentum, bone, vaginal cuff - Medonc c/s - On octreotide (monthly) and a [...] on diagnostic imaging of breas t 06/07/2014 Immunizations Name Administration Dates Next Due Influenza, Quadrivalent, Fransisca l Culture-based MDCK, Preservative Free, Antibiotic Free, Intramuscular 04/21/2018 Influenza, Quadrivalent, Hig h Dose, Preservative Free, Intrr 03/21/2020 Influenza, Trivalent, High D ose, Split, Preservative Free, Intramuscular 05/04/2019,04/16/2019,04/09/2017,05/29 Influenza, Unspecified 06/11/2018,03/08/2015,04/2014 Moderna SARS-CoV-2 Monovalen t Vaccination (12+ YRS) 03/08/2021,09/26/2020,08/25/2020 Pneumococcal Conjugate PCV 13 07/12/2020, 016 Pneumococcal Polysaccharide PPV23 05/26/2015 Tdap 11/20/2020 [facility]OSTER LIVE 05/27/2015,05/26/2015 Social History Tobacco Use Types Packs/Day Years [...] materials from doctor or pharmacy Never 11/07/2022 [facility] Utilities Answer Date Recorded In the past 12 months has th e [employer], gas, oil, or water company threatened to [...] often do you attend chur ch or hinduism services? More than 4 times per year 06/20/2024 Do you belong to any clubs o r organizations such as rastafarian groups, unions, fraternal or athletic groups, or [...] any time in the past 12 m [facility], were you homeless or living in a long term (including now)? No 06/20/2024 Personal Safety Answer Date Recorded Have you ever been in or are you currently in a harmful physical or emotional relationship or is someone making you feel afraid or unsafe? Denies 06/16/2024 Comments No Sex and Gender Information Value Date Recorded Sex Assigned at Not on file Legal Sex Female 2:41 PM EVENT DECORATOR Gender Identity Not on file Sexual Orientation Straight 02/19/2021 9: 29 AM CDT Occupation Industry Job Start Date Job End Date retired Not on file Not on file Not on file Last Filed Vital Signs Vital Sign Reading Time Taken Comments Blood Pressure 139/45 06/20/2024 8:14 AM EVENT DECORATOR Pulse 95 06/20/2024 8:14 AM EVENT DECORATOR Temperature 36.4 ??C (97.6 ??F) 06/20/2024 7:25 AM CS T Respiratory Rate 16 06/20/2024 7:25 AM EVENT DECORATOR Oxygen Saturation 95% 06/20/2024 7:25 AM EVENT DECORATOR Inhaled Oxygen Concentration - - Weight 72.6 kg (160 lb) 06/19/2024 9:30 PM EVENT DECORATOR Height 160 cm (5' 3 ) 06/19/2024 7:33 AM EVENT DECORATOR Body Mass Index 28.34 06/19/2024 7:33 AM EVENT DECORATOR Plan of Treatment Not on file Medical Devices Implanted Type Area Bottom Turning Lathe Turner Device Identifier Shelf Expiration Date Model / Serial / Lot Left Knee Replacement Other - see comments Left: Knee Description:Left knee replac ement [employer] [id number] [id number] 26cm 145cm Radiopaque Positioner Filiform Flexible Tip - Sna - [id number] Implanted:Qty: 1 on 06/16/2024 by Mela Dejesus MD at [facility] Stent Right: Ureter [employer] [id number] 02/03/2027 [id number] / [id number] / [id number] [employer] Port 8fr [id number] - [id number] Implanted:Qty: 1 on 09/14/2021 at [facility] [employer] 04/18/2026 [id number] / / [id number] [employer] [place] Angio-Seal Vip 6fr Closere Device [id number] - [id number] Implanted:Qty: 1 on 06/19/2024 by Mikey Meraz MD at [facility] [employer] [place] 11/18/2024 [id number] / / [id number] Procedures Procedure Name Priority Date/Time Associated Diagnosis Comments EGFR Routine 06/20/2024 12:59 AM EVENT DECORATOR DIFFERENTIAL AUTO Routine 06/20/2024 12:59 AM EVENT DECORATOR MAGNESIUM Routine 06/20/2024 12:59 AM EVENT DECORATOR HEPATIC FUNCTION PANEL Routine 06/20/2024 12:59 AM EVENT DECORATOR CBC WITH AUTO DIFFERENTIAL Routine 06/20/2024 12:59 AM EVENT DECORATOR BASIC METABOLIC PANEL Routine 06/20/2024 12:59 AM EVENT DECORATOR EMBOLIZATION ORGAN ISCHEMIA OR INFARCTION Schedule Routine, Read Routine (OP Routine) 06/19/2024 11:17 AM EVENT DECORATOR 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) BIOPSY LIVER Schedule Routine, Read Routine (OP Routine) 06/19/2024 9:00 AM EVENT DECORATOR 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) SURGICAL PATHOLOGY Routine 06/19/2024 8: 53 AM EVENT DECORATOR ANNE-MARIE (acute kidney injury) (HCC) 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 History of malignant neuroendocrine tumor 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) EGFR Routine 06/19/2024 1:56 AM EVENT DECORATOR DIFFERENTIAL AUTO Routine 06/19/2024 1:5 6 AM EVENT DECORATOR MAGNESIUM Routine 06/19/2024 1:56 AM EVENT DECORATOR HEPATIC FUNCTION PANEL Routine 06/19/2024 1:56 AM EVENT DECORATOR CBC WITH AUTO DIFFERENTIAL Routine 06/19/2024 1:56 AM EVENT DECORATOR BASIC METABOLIC PANEL Routine 06/19/2024 1:56 AM EVENT DECORATOR US KIDNEY COMPLETE IP Routine 06/18/2024 3: 53 PM EVENT DECORATOR XR ABDOMEN AP 1 VIEW IP Routine 06/18/2024 5:54 AM EVENT DECORATOR MANUAL DIFFERENTIAL Routine 06/18/2024 1 :37 AM EVENT DECORATOR EGFR Routine 06/18/2024 1:37 AM EVENT DECORATOR MAGNESIUM Routine 06/18/2024 1:37 AM EVENT DECORATOR HEPATIC FUNCTION PANEL Routine 06/18/2024 1:37 AM EVENT DECORATOR CBC WITH AUTO DIFFERENTIAL Routine 06/18/2024 1:37 AM EVENT DECORATOR BASIC METABOLIC PANEL Routine 06/18/2024 1:37 AM EVENT DECORATOR TRANSTHORACIC ECHO (TTE) COMPLETE W DOPPLER/CF W CONTRAST Routine 06/17/2024 4:25 PM EVENT DECORATOR MANUAL DIFFERENTIAL Routine 06/17/2024 1 :25 AM EVENT DECORATOR EGFR Routine 06/17/2024 1:25 AM EVENT DECORATOR MAGNESIUM Routine 06/17/2024 1:25 AM EVENT DECORATOR HEPATIC FUNCTION PANEL Routine 06/17/2024 1:25 AM EVENT DECORATOR CBC WITH AUTO DIFFERENTIAL Routine 06/17/2024 1:25 AM EVENT DECORATOR BASIC METABOLIC PANEL Routine 06/17/2024 1:25 AM EVENT DECORATOR FL FLUOROSCOPY < 1 HOUR IP Routine 06/16/2024 3:37 PM EVENT DECORATOR MD AN PROCEDURE PLACEHOLDER Routine 06/16/2024 3:30 PM EVENT DECORATOR MD AN ELECTIVE SUPRAGLOTTIC AIRWAY Routine 06/16/2024 3:30 PM EVENT DECORATOR PYELOGRAM - RETROGRADE 06/16/2024 3:03 PM EVENT DECORATOR ANNE-MARIE (acute kidney injury) (HCC) 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 PLACEMENT STENT - URETERAL 06/16/2024 3:03 PM EVENT DECORATOR ANNE-MARIE (acute kidney injury) (HCC) 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 CYSTOSCOPY 06/16/2024 3:03 PM EVENT DECORATOR ANNE-MARIE (acute kidney injury) (HCC) 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 MANUAL DIFFERENTIAL Routine 06/16/2024 12:50 AM EVENT DECORATOR EGFR Routine 06/16/2024 12:50 AM EVENT DECORATOR MAGNESIUM Routine 06/16/2024 12:50 AM EVENT DECORATOR HEPATIC FUNCTION PANEL Routine 06/16/2024 12:50 AM EVENT DECORATOR CBC WITH AUTO DIFFERENTIAL Routine 06/16/2024 12:50 AM EVENT DECORATOR BASIC METABOLIC PANEL Routine 06/16/2024 12:50 AM EVENT DECORATOR MANUAL DIFFERENTIAL Routine 06/15/2024 1 :26 AM EVENT DECORATOR EGFR Routine 06/15/2024 1:26 AM EVENT DECORATOR MAGNESIUM Routine 06/15/2024 1:26 AM EVENT DECORATOR HEPATIC FUNCTION PANEL Routine 06/15/2024 1:26 AM EVENT DECORATOR CBC WITH AUTO DIFFERENTIAL Routine 06/15/2024 1:26 AM EVENT DECORATOR BASIC METABOLIC PANEL Routine 06/15/2024 1:26 AM EVENT DECORATOR ECG 12-LEAD Routine 06/14/2024 8:[address] ABDOMEN PELVIS W CONTRAST ED 06/14/2024 2:26 AM EVENT DECORATOR PRO B-TYPE NATRIURETIC PEPTIDE STAT 06/14/2024 12:23 AM EVENT DECORATOR EGFR STAT 06/14/2024 12:23 AM EVENT DECORATOR DIFFERENTIAL AUTO STAT 06/14/2024 12:23 AM EVENT DECORATOR COMPREHENSIVE METABOLIC PANEL STAT 06/14/2024 12:23 AM EVENT DECORATOR CBC WITH AUTO DIFFERENTIAL STAT 06/14/2024 12:23 AM EVENT DECORATOR URINALYSIS, MICROSCOPIC ONLY STAT 06/13/2024 6:05 PM EVENT DECORATOR URINALYSIS AND REFLEX TO MICROSCOPIC AND CULTURE STAT 06/13/2024 6:05 PM EVENT DECORATOR RESPIRATORY PATHOGEN PANEL STAT 06/13/2024 4:56 PM EVENT DECORATOR POC BLOOD GAS AND CHEMISTRIES, ARTERIAL Routine 06/13/2024 4:53 PM EVENT DECORATOR MANUAL DIFFERENTIAL STAT 06/13/2024 4 :30 PM EVENT DECORATOR SENIOR STAFF REVIEW STAT 06/13/2024 4 :30 PM EVENT DECORATOR EGFR STAT 06/13/2024 4:30 PM EVENT DECORATOR PHOSPHORUS STAT 06/13/2024 4:30 PM EVENT DECORATOR MAGNESIUM STAT 06/13/2024 4:30 PM EVENT DECORATOR COMPREHENSIVE METABOLIC PANEL STAT 06/13/2024 4:30 PM EVENT DECORATOR CBC WITH AUTO DIFFERENTIAL STAT 06/13/2024 4:30 PM EVENT DECORATOR EGFR Routine 06/09/2024 1:27 PM EVENT DECORATOR Neuroendocrine carcinoma (HCC) COMPREHENSIVE METABOLIC PANEL Routine 06/09/2024 1:27 PM EVENT DECORATOR Neuroendocrine carcinoma (HCC) LIPID PANEL Routine 06/09/2024 1:27 PM EVENT DECORATOR 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) PHOSPHORUS Routine 06/09/2024 1:27 PM EVENT DECORATOR 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) VITAMIN D 25 HYDROXY Routine 06/09/2024 1:27 PM EVENT DECORATOR 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) CHROMOGRANIN A Routine 06/09/2024 1:27 PM EVENT DECORATOR 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) MANUAL DIFFERENTIAL STAT 05/12/2024 10:26 AM EVENT DECORATOR Neuro-endocrine carcinoma (HCC) EGFR STAT 05/12/2024 10:26 AM EVENT DECORATOR Neuro-endocrine carcinoma (HCC) DIFFERENTIAL AUTO STAT 05/12/2024 10:26 AM EVENT DECORATOR Neuro-endocrine carcinoma (HCC) CBC WITH AUTO DIFFERENTIAL STAT 05/12/2024 10:26 AM EVENT DECORATOR Neuro-endocrine carcinoma (HCC) COMPREHENSIVE METABOLIC PANEL STAT 05/12/2024 10:26 AM EVENT DECORATOR Neuro-endocrine carcinoma (HCC) MAGNESIUM STAT 05/12/2024 10:26 AM EVENT DECORATOR Neuro-endocrine carcinoma (HCC) LIPID PANEL Routine 05/12/2024 10:26 AM EVENT DECORATOR 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) PHOSPHORUS Routine 05/12/2024 10:26 AM EVENT DECORATOR 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) VITAMIN D 25 HYDROXY Routine 05/12/2024 10:26 AM EVENT DECORATOR 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) CHROMOGRANIN A Routine 05/12/2024 10:26 AM EVENT DECORATOR Neuroendocrine carcinoma (HCC) Malignant neoplasm metastatic to [...] Read Routine (OP Routine) 06/13/2023 2:01 PM EVENT DECORATOR Screening mammogram, encounter for HEPATITIS PANEL, ACUTE Routine 01/02/2021 2:05 PM CDT Neuro-endocrine carcinoma (CMS/HCC) DEXA AXIAL SKELETON BONE DENSITY 1 OR MORE SITES Schedule Routine, Read Routine (OP Routine) 03/10/2020 9:58 AM CDT Abnormal bone density screening from Last 3 Months or Most Recently Relevant to Health Maintenance Results * (ABNORMAL) eGFR (06/20/2024 12:59 AM EVENT DECORATOR) eGFR 38(L) >=60 mL/min/1. 73 m2 Comment: [...] reviewed 2021. Blood 06/20/2024 12:5 9 AM EVENT DECORATOR 06/20/2024 1:19 AM EVENT DECORATOR us Nasir Lyons MD LAB BLOOD ORDERABLES Mel badillo Result [facility] Department [place] [address] * (ABNORMAL) Differential, auto (06/20/2024 12:59 AM EVENT DECORATOR) Neutrophil abs 5.8 1.5 - 6.5 K/cumm Imm gran abs 0.1 0.0 - 0.1 K/cumm [facility] Lymphocyte abs 2.3 0.8 - 3.3 K/cumm [facility] Monocyte abs 2.7(H) 0.2 - 0.8 K/cumm [facility] Eosinophil abs 0.0 0.0 - 0.5 K/cumm [facility] Basophil abs 0.0 0.0 - 0.1 K/cumm [facility] Neutrophil pct 52.9 % [facility] Comment: Consistent with previous result Interpretive Data Percent cell count reference ranges are not reported, since discordance with absolute values may lead to misinterpretation of CBC data. Current Interpretive Data was last revised on 2017. Imm gran pct 0.5 % [facility] Comment: Interpretive Data Percent cell count reference ranges are not reported, since discordance with absolute values may lead to misinterpretation of CBC data. Current Interpretive Data was last revised on 2017. Lymphocyte pct 21.0 % [facility] Comment: Interpretive Data Percent cell count reference ranges are not reported, since discordance with absolute values may lead to misinterpretation of CBC data. Current Interpretive Data was last revised on 2017. Monocyte pct 24.9 % [facility] Comment: Interpretive Data Percent cell count reference ranges are not reported, since discordance with absolute values may lead to misinterpretation of CBC data. Current Interpretive Data was last revised on 2017. Eosinophil pct 0.3 % [facility] Comment: Interpretive Data Percent cell count reference ranges are not reported, since discordance with absolute values may lead to misinterpretation of CBC data. Current Interpretive Data was last revised on 2017. Basophil pct 0.4 % [facility] Comment: Interpretive Data Percent cell count reference ranges are not reported, since discordance with absolute values may lead to misinterpretation of CBC data. Current Interpretive Data was last revised on 2017. Blood 06/20/2024 12:5 9 AM EVENT DECORATOR 06/20/2024 1:20 AM EVENT DECORATOR us Nasir Lyons MD LAB BLOOD ORDERABLES Mel badillo Result [facility] Department [place] [address] * (ABNORMAL) CBC with auto differential (06/20/2024 12:59 AM EVENT DECORATOR) WBC 11.0(H) 3.8 - 9.9 K/cumm Hgb 10.8(L) 11.9 - 15.5 g/dL [facility] Hct 33.7(L) 35.6 - 45.5 % [facility] Plt 133(L) 150 - 400 K/cumm [facility] MPV 10.2 9.1 - 12.3 fL [facility] RBC 3.45(L) 3.90 - 5.20 M/cumm [facility] MCV 97.7(H) 81.3 - 96.4 fL [facility] MCH 31.3 27.1 - 33.3 pg [facility] MCHC 32.0(L) 32.3 - 35.7 g/dL [facility] RDW CV 14.6 11.1 - 14.9 % [facility] RDW SD 52.6(H) 35.7 - 48.1 fL [facility] NRBC abs 0.00 0.00 - 0.01 K/cumm [facility] Blood 06/20/2024 12:5 9 AM EVENT DECORATOR 06/20/2024 1:20 AM EVENT DECORATOR Nasir Lyons MD LAB BLOOD ORDERABLES Mel l Result Performing Organization Address [facility] de Phone Number [facility] [place] [address] * Magnesium (06/20/2024 12:59 AM EVENT DECORATOR) Pathologist [facility] Magnesium 1.4 1.4 - 2.5 mg/dL Blood 06/20/2024 12:5 9 AM EVENT DECORATOR 06/20/2024 1:19 AM EVENT DECORATOR Result [facility] Nasir Lyons MD LAB BLOOD ORDERABLES Mel l Result Performing Organization Address [facility] Phone Number [facility] [place] [address] * (ABNORMAL) Hepatic function panel (06/20/2024 12:59 AM EVENT DECORATOR) Bilirubin, total 0.6 0.1 - 1.2 mg/dL Bilirubin, direct <0.2 0.1 - 0.3 mg/dL [facility] Protein, pl 6.2(L) 6.5 - 8.5 g/dL [facility] Albumin 3.8 3.5 - 5.0 g/dL [facility] Alk phos 85 40 - 130 Units/L [facility] ALT 164(H) 7 - 45 Units/L [facility] Comment:Reviewed AST 433(H) 10 - 45 Units/L [facility] Comment:Reviewed Blood 06/20/2024 12:5 9 AM EVENT DECORATOR 06/20/2024 1:19 AM EVENT DECORATOR Result [facility] Nasir Lyons MD LAB BLOOD ORDERABLES Mel l Result Performing Organization Address [facility] de Phone Number [facility] Department [place] [address] * (ABNORMAL) Basic metabolic panel (06/20/2024 12:59 AM EVENT DECORATOR) Sodium 138 135 - 145 mmol/L Potassium, pl 3.5 3.3 - 4.9 mmol/L [facility] Chloride 105 97 - 110 mmol/L [facility] CO2 25 22 - 32 mmol/L [facility] Anion gap 8 2 - 15 mmol/L [facility] BUN 12 6 - 25 mg/dL [facility] Creatinine 1.44(H) 0.60 - 1.10 mg/dL [facility] Glucose 123 70 - 199 mg/dL [facility] Comment: Interpretive Data Fasting glucose >/= 126 [...] 2022. Calcium 8.1(L) 8.5 - 10.3 mg/dL [facility] Blood 06/20/2024 12:5 9 AM EVENT DECORATOR 06/20/2024 1:19 AM EVENT DECORATOR us Nasir Lyons MD LAB BLOOD ORDERABLES Mel badillo Result [facility] Department [place] [address] * IR Embolization Tumor Organ Ischemia or Infarction (06/19/2024 11:17 AM EVENT DECORATOR) Anatomical Region Laterality Modality Body N/A X-Ray Angiograph y 06/19/2024 4:13 PM EVENT DECORATOR Impressions 06/19/2024 4:15 PM EVENT DECORATOR Successful diagnostic angiography and chemo-embolization of the right posterior liver using 25 mg doxorubicin and Ethiodol and Gelfoam. PLAN: Interventional radiology will coordinate outpatient follow-up. Dictated by: Dar Willett M.D. The radiology attending physician has personally reviewed this study, and had reviewed and/or edited this written report and agrees with it. Electronically signed by: Mikey Meraz M.D. Narrative 06/19/2024 4:15 PM EVENT DECORATOR EXAMINATION: ??DIAGNOSTIC VISCERAL ANGIOGRAPHY AND TRANSARTERIAL CHEMOEMBOLIZATION [...] was obtained. Prior to beginning the procedure, Prewitt Protocol was performed to confirm the patient's [...] the patent vessel was recorded. A 6 Uzbek sheath was placed and connected to a heparinized saline drip. Using fluoroscopic guidance, the following arteries were catheterized and selective diagnostic angiograms were performed: Common hepatic artery with Nancy CT Posterior division of the right hepatic artery (3rd order) The equipment used for catheterization was 5 Uzbek LEV catheter and a Glidewire. ??The equipment used for selective catheterization was 2.7-Uzbek Progreat catheter and a fathom wire. The [...] was obtained. Prior to beginning the procedure, Prewitt Protocol was performed to confirm the patient's [...] the patent vessel was recorded. A 6 Uzbek sheath was placed and connected to a heparinized saline drip. Using fluoroscopic guidance, the following arteries were catheterized and selective diagnostic angiograms were performed: Common hepatic artery with Nancy CT Posterior division of the right hepatic artery (3rd order) The equipment used for catheterization was 5 Uzbek LEV catheter and a Glidewire. The equipment used for selective catheterization was 2.7-Uzbek Progreat catheter and a fathom wire. The [...] it. Electronically signed by: Mikey Meraz M.D. 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 PLAN: Patient will proceed to the interventional radiology area for chemoembolization. Dictated by: Dar Willett M.D. The radiology attending physician has personally reviewed this study, and had reviewed and/or edited this written report and agrees with it. Electronically signed by: Mikey Meraz M.D. Narrative 06/19/2024 4:10 PM EVENT DECORATOR EXAMINATION: IMAGE-GUIDED BIOPSY OF LIVER HISTORY/INDICATION: 73-year-old [...] was obtained. Prior to beginning the procedure, Prewitt Protocol was performed to confirm the patient's [...] was obtained. Prior to beginning the procedure, Prewitt Protocol was performed to confirm the patient's [...] Result * Surgical pathology (06/19/2024 8:53 AM EVENT DECORATOR) Tissue (Soft tissue biopsy) 06/19/2024 8:53 AM EVENT DECORATOR Narrative PATHOLOGY [facility] - 06/23/2024 3:41 PM EVENT DECORATOR EPIC results best viewed via link to PDF [facility] [place] [address] Note to Patients: This report may contain [...] Gender: ??F : ??1950 (Age: 73) Address: ??[facility] [place] ??[address] Hospital #: ??[id number] Taken:06/19/2024 Received:06/19/2024 Reported: 06/23/2024 Patient Type: [facility] Inpatient ?? Service: Oncology Location: [facility] ??[id number] Physician(s): ??MD Julio César Serrato M.D. Diagnosis: [...] Surgical Pathology and Flow Cytometry Departments at [facility] as part of an ongoing quality nurse program and in compliance with federally mandated [...] Surgical Pathology and Flow Cytometry Departments of [facility]. ??It has not been cleared or approved by the U. S. Food and Drug Administration. IMAGES AND SCANNED DOCUMENTS, IF INCLUDED, ONLY VIEWABLE IN PDF VERSION OF REPORT Dana Cancino MD LAB PATHOLOGY ORDERABLES Fin al Result PATHOLOGY [facility] 3rd Floor [place], [place] [phone] * (ABNORMAL) eGFR (06/19/2024 1:56 AM EVENT DECORATOR) eGFR 37(L) >=60 mL/min/1. 73 m2 Comment: [...] last reviewed 2021. Blood 06/19/2024 1:56 AM EVENT DECORATOR 06/19/2024 2:31 AM EVENT DECORATOR us Nasir Lyons MD LAB BLOOD ORDERABLES Mel badillo Result [facility] Department [place] [address] * (ABNORMAL) Differential, auto (06/19/2024 1:56 AM EVENT DECORATOR) Neutrophil abs 2.1 1.5 - 6.5 K/cumm Imm gran abs 0.0 0.0 - 0.1 K/cumm [facility] Lymphocyte abs 2.7 0.8 - 3.3 K/cumm [facility] Monocyte abs 4.0(H) 0.2 - 0.8 K/cumm [facility] Eosinophil abs 0.1 0.0 - 0.5 K/cumm [facility] Basophil abs 0.0 0.0 - 0.1 K/cumm [facility] Neutrophil pct 23.5 % [facility] Comment: Confirmed by smear review Interpretive Data Percent cell count reference ranges are not reported, since discordance with absolute values may lead to misinterpretation of CBC data. Current Interpretive Data was last revised on 2017. Imm gran pct 0.3 % [facility] Comment: Interpretive Data Percent cell count reference ranges are not reported, since discordance with absolute values may lead to misinterpretation of CBC data. Current Interpretive Data was last revised on 2017. Lymphocyte pct 30.2 % [facility] Comment: Interpretive Data Percent cell count reference ranges are not reported, since discordance with absolute values may lead to misinterpretation of CBC data. Current Interpretive Data was last revised on 2017. Monocyte pct 44.4 % [facility] Comment: Interpretive Data Percent cell count reference ranges are not reported, since discordance with absolute values may lead to misinterpretation of CBC data. Current Interpretive Data was last revised on 2017. Eosinophil pct 1.3 % [facility] Comment: Interpretive Data Percent cell count reference ranges are not reported, since discordance with absolute values may lead to misinterpretation of CBC data. Current Interpretive Data was last revised on 2017. Basophil pct 0.3 % [facility] Comment: Interpretive Data Percent cell count reference ranges are not reported, since discordance with absolute values may lead to misinterpretation of CBC data. Current Interpretive Data was last revised on 2017. Blood 06/19/2024 1:56 AM EVENT DECORATOR 06/19/2024 2:32 AM EVENT DECORATOR us Nasir Lyons MD LAB BLOOD ORDERABLES Mel badillo Result [facility] Department [place] [address] * (ABNORMAL) CBC with auto differential (06/19/2024 1:56 AM EVENT DECORATOR) WBC 9.1 3.8 - 9.9 K/cumm Hgb 10.1(L) 11.9 - 15.5 g/dL [facility] Hct 31.7(L) 35.6 - 45.5 % [facility] Plt 148(L) 150 - 400 K/cumm [facility] MPV 10.9 9.1 - 12.3 fL [facility] RBC 3.24(L) 3.90 - 5.20 M/cumm [facility] MCV 97.8(H) 81.3 - 96.4 fL [facility] MCH 31.2 27.1 - 33.3 pg [facility] MCHC 31.9(L) 32.3 - 35.7 g/dL [facility] RDW CV 14.3 11.1 - 14.9 % [facility] RDW SD 51.9(H) 35.7 - 48.1 fL [facility] NRBC abs 0.00 0.00 - 0.01 K/cumm [facility] Blood 06/19/2024 1:56 AM EVENT DECORATOR 06/19/2024 2:32 AM EVENT DECORATOR Nasir Lyons MD LAB BLOOD ORDERABLES Mel l Result Performing Organization Address City/[facility] Co de Phone Number [facility] [place] [place] [address] * Magnesium (06/19/2024 1:56 AM EVENT DECORATOR) Pathologist [facility] Magnesium 1.6 1.4 - 2.5 mg/dL Blood 06/19/2024 1:56 AM EVENT DECORATOR 06/19/2024 2:31 AM EVENT DECORATOR Nasir Lyons MD LAB BLOOD ORDERABLES Mel l Result Performing Organization Address [facility] [place] [address] * (ABNORMAL) Hepatic function panel (06/19/2024 1:56 AM EVENT DECORATOR) Pathologist [facility] Bilirubin, total 0.4 0.1 - 1.2 mg/dL Bilirubin, direct <0.2 0.1 - 0.3 mg/dL [facility] Protein, pl 5.9(L) 6.5 - 8.5 g/dL [facility] Albumin 3.5 3.5 - 5.0 g/dL [facility] Alk phos 61 40 - 130 Units/L [facility] ALT 5(L) 7 - 45 Units/L [facility] AST 21 10 - 45 Units/L [facility] Blood 06/19/2024 1:56 AM EVENT DECORATOR 06/19/2024 2:31 AM EVENT DECORATOR Nasir Lyons MD LAB BLOOD ORDERABLES Mel l Result Performing Organization Address [facility] Co de Phone Number [facility] [place] [employer] [place] [address] * (ABNORMAL) Basic metabolic panel (06/19/2024 1:56 AM EVENT DECORATOR) Sodium 141 135 - 145 mmol/L Potassium, pl 3.8 3.3 - 4.9 mmol/L [facility] Chloride 107 97 - 110 mmol/L [facility] CO2 24 22 - 32 mmol/L [facility] Anion gap 10 2 - 15 mmol/L [facility] BUN 14 6 - 25 mg/dL [facility] Creatinine 1.48(H) 0.60 - 1.10 mg/dL [facility] Glucose 121 70 - 199 mg/dL [facility] Comment: Interpretive Data Fasting glucose >/= 126 [...] 2022. Calcium 8.4(L) 8.5 - 10.3 mg/dL [facility] Blood 06/19/2024 1:56 AM EVENT DECORATOR 06/19/2024 2:31 AM EVENT DECORATOR us Nasir Lyons MD LAB BLOOD ORDERABLES Mel badillo Result [facility] Department [place] [address] * US Kidney Complete (06/18/2024 3:53 PM EVENT DECORATOR) Anatomical Region Laterality Modality Kidney N/A Ultrasound 06/18/2024 3:55 PM EVENT DECORATOR Impressions 06/18/2024 4:09 PM EVENT DECORATOR 1. ??No hydronephrosis. ??Previously described right-sided hydronephrosis has resolved. 2. ??Normal renal echogenicity. Dictated by: Greyson Anthony M.D. The radiology attending physician has personally reviewed this study, and had reviewed and/or edited this written report and agrees with it. Electronically signed by: Immanuel Bennett M.D. Narrative 06/18/2024 4:09 PM EVENT DECORATOR EXAMINATION: COMPLETE RENAL SONOGRAM HISTORY: ??Metastatic neuroendocrine [...] Immanuel Bennett M.D. us Dana Cancino MD IMG US PROCEDURES Final Resu lt * XR Abdomen Ap 1 Vw (06/18/2024 5:54 AM EVENT DECORATOR) Anatomical Region Laterality Modality Body, Abdomen N/A Computed Radiogr aphy 06/18/2024 11:3 4 AM EVENT DECORATOR Impressions 06/18/2024 11:44 AM EVENT DECORATOR A single view of the abdomen is [...] Brock Malik M.D. Narrative 06/18/2024 11:44 AM EVENT DECORATOR EXAMINATION: Abdomen, one view. HISTORY: Check stent [...] it. Electronically signed by: Brock Malik M.D. us Dana Cancino MD IMG XR PROCEDURES Final Resu lt * (ABNORMAL) eGFR (06/18/2024 1:37 AM EVENT DECORATOR) [facility] eGFR 33(L) >=60 mL/min/1. 73 m2 Comment: [...] last reviewed 2021. Blood 06/18/2024 1:37 AM EVENT DECORATOR 06/18/2024 2:11 AM EVENT DECORATOR us Nasir Lyons MD LAB BLOOD ORDERABLES Mel badillo Result [facility] Department [place] [address] * (ABNORMAL) CBC with auto differential (06/18/2024 1:37 AM EVENT DECORATOR) Pathologist [facility] WBC 9.0 3.8 - 9.9 K/cumm Hgb 10.2(L) 11.9 - 15.5 g/dL [facility] Hct 32.0(L) 35.6 - 45.5 % [facility] Plt 155 150 - 400 K/cumm [facility] MPV 10.4 9.1 - 12.3 fL [facility] RBC 3.28(L) 3.90 - 5.20 M/cumm [facility] MCV 97.6(H) 81.3 - 96.4 fL [facility] MCH 31.1 27.1 - 33.3 pg [facility] MCHC 31.9(L) 32.3 - 35.7 g/dL [facility] RDW CV 14.6 11.1 - 14.9 % [facility] RDW SD 52.8(H) 35.7 - 48.1 fL [facility] NRBC abs 0.00 0.00 - 0.01 K/cumm [facility] Blood 06/18/2024 1:37 AM EVENT DECORATOR 06/18/2024 2:13 AM EVENT DECORATOR us Nasir Lyons MD LAB BLOOD ORDERABLES Mel badillo Result [facility] Department [place] [address] * (ABNORMAL) Manual Differential (06/18/2024 1:37 AM EVENT DECORATOR) Differential Manual Cells Counted 114 [facility] Neutrophil abs 3.2 1.5 - 6.5 K/cumm [facility] Imm gran abs 0.0 0.0 - 0.1 K/cumm [facility] Lymphocyte abs 4.8(H) 0.8 - 3.3 K/cumm [facility] Monocyte abs 1.0(H) 0.2 - 0.8 K/cumm [facility] Neutrophil pct 36.0 % [facility] Comment: Interpretive Data Percent cell count reference ranges are not reported, since discordance with absolute values may lead to misinterpretation of CBC data. Current Interpretive Data was last revised on 2017. Lymphocyte pct 53.5 % [facility] Comment: Interpretive Data Percent cell count reference ranges are not reported, since discordance with absolute values may lead to misinterpretation of CBC data. Current Interpretive Data was last revised on 2017. Monocyte pct 10.5 % [facility] Comment: Interpretive Data Percent cell count reference ranges are not reported, since discordance with absolute values may lead to misinterpretation of CBC data. Current Interpretive Data was last revised on 2017. Blood 06/18/2024 1:37 AM EVENT DECORATOR 06/18/2024 2:16 AM EVENT DECORATOR Nasir Lyons MD LAB BLOOD ORDERABLES Mel l Result Performing Organization Address City/[facility] Co de Phone Number [facility] [place] [place] [address] * Magnesium (06/18/2024 1:37 AM EVENT DECORATOR) Pathologist [facility] Magnesium 1.6 1.4 - 2.5 mg/dL Blood 06/18/2024 1:37 AM EVENT DECORATOR 06/18/2024 2:11 AM EVENT DECORATOR Result [facility] Nasir Lyons MD LAB BLOOD ORDERABLES Mel l Result Performing Organization Address [facility] de Phone Number [facility] [place] [place] [address] * (ABNORMAL) Hepatic function panel (06/18/2024 1:37 AM EVENT DECORATOR) Bilirubin, total 0.5 0.1 - 1.2 mg/dL Bilirubin, direct <0.2 0.1 - 0.3 mg/dL [facility] Protein, pl 6.0(L) 6.5 - 8.5 g/dL [facility] Albumin 3.7 3.5 - 5.0 g/dL [facility] Alk phos 62 40 - 130 Units/L [facility] ALT 11 7 - 45 Units/L [facility] AST 24 10 - 45 Units/L [facility] Blood 06/18/2024 1:37 AM EVENT DECORATOR 06/18/2024 2:11 AM EVENT DECORATOR Result [facility] Nasir Lyons MD LAB BLOOD ORDERABLES Mel l Result Performing Organization Address [facility] Co de Phone Number [facility] [place] [place] [address] * (ABNORMAL) Basic metabolic panel (06/18/2024 1:37 AM EVENT DECORATOR) Pathologist [facility] Sodium 141 135 - 145 mmol/L Potassium, pl 3.2(L) 3.3 - 4.9 mmol/L [facility] Chloride 107 97 - 110 mmol/L [facility] CO2 26 22 - 32 mmol/L [facility] Anion gap 8 2 - 15 mmol/L [facility] BUN 14 6 - 25 mg/dL [facility] Creatinine 1.62(H) 0.60 - 1.10 mg/dL [facility] Glucose 95 70 - 199 mg/dL [facility] Comment: Interpretive Data Fasting glucose >/= 126 [...] 2022. Calcium 8.1(L) 8.5 - 10.3 mg/dL [facility] Blood 06/18/2024 1:37 AM EVENT DECORATOR 06/18/2024 2:11 AM EVENT DECORATOR us Nasir Lyons MD LAB BLOOD ORDERABLES Mel l Result [facility] [place] [address] * TRANSTHORACIC ECHO (TTE) COMPLETE W DOPPLER/CF W CONTRAST (06/17/2024 4:25 PM EVENT DECORATOR) Pathologist [facility] LV EF 66 % CARDIOREPORT Anatomical Region Laterality Modality Ultrasound 06/17/2024 3:00 PM EVENT DECORATOR Narrative 06/17/2024 5:02 PM EVENT DECORATOR Patient name: La Chung Date of test: 06/17/2024 Type of test: TTE w/[facility] #: 0 Date of : 1950 (F) Investment Specialist: MICHAEL Blankenship Referring Physician: DANA CANCINO MD Contrast Agent: 1.1 ml [employer]ison Administered, (1.9 ml wasted). Contrast Administered by: Supervised/Interpreted by: Parth ??MD April Diagnosis: Location: [facility] [facility] Reason for test: Shortness of Breath MV [...] 2=Hypo 3=Akinetic 4=Dyskin./Aneurysm 0=Not visualized) Parasternal Long Mosca:MAS=1 BAS=1 MIL=1 ALLEY=1 Parasternal Short Mosca:MAS=1 MIS=1 VT=1 MIL=1 MAL=1 MA=1 Apical 4 Chambers:=1 MIS=1 BIS=1 BAL=1 MAL=1 AL=1 AC=1 Apical 2 Chambers:AI=1 VT=1 BI=1 BA=1 MA=1 AA=1 AC=1 LV Global Longitudinal Strain: -16% ??(Normal <-17%) RV Global Longitudinal Strain: LV Function: Normal LV Ejection Fraction, ??(EF=54-74%) RV Function: Normal Septal Motion: Normal Pericardial Effusion: trace Atrial Septum: Normal DOPPLER/COLOR FLOW DOPPLER RESULTS: Diastolic Function: Grade I, altered relax. w/N. LA pres. Tricuspid Valve: normal TV Pulmonic Valve: Mild MD AV Regurgitation: No AR seen AV Stenosis: [...] no , no MS, normal TV, Mild MD. Diastolic function: Grade I, altered relax. w/N. [...] April By signing this report, the attending pumper head certifies that he or she has personally supervised and interpreted the echocardiogram and has reviewed and or edited and agrees with the written comments contained within the report. Procedure Note Parth Chen MD - 06/17/2024 Patient name: La Chung Date of test: 06/17/2024 Type of test: TTE w/Doppler Hospital #: [id number] Date of : 1950 (F) Investment Specialist: MICHAEL Blankenship Referring Physician: DANA CANCINO MD Contrast Agent: 1.1 ml Optison Administered, (1.9 ml wasted). Contrast Administered by: Supervised/Interpreted by: Parth Chen MD Diagnosis: Location: [facility] Reason for test: Shortness of Breath MV [...] 2=Hypo 3=Akinetic 4=Dyskin./Aneurysm 0=Not visualized) Parasternal Long Mosca:MAS=1 BAS=1 MIL=1 ALLEY=1 Parasternal Short Mosca:MAS=1 MIS=1 VT=1 MIL=1 MAL=1 MA=1 Apical 4 Chambers:=1 MIS=1 BIS=1 BAL=1 MAL=1 AL=1 AC=1 Apical 2 Chambers:AI=1 VT=1 BI=1 BA=1 MA=1 AA=1 AC=1 LV Global Longitudinal Strain: -16% (Normal <-17%) RV Global Longitudinal Strain: LV Function: Normal LV Ejection Fraction, (EF=54-74%) RV Function: Normal Septal Motion: Normal Pericardial Effusion: trace Atrial Septum: Normal DOPPLER/COLOR FLOW DOPPLER RESULTS: Diastolic Function: Grade I, altered relax. w/N. LA pres. Tricuspid Valve: normal TV Pulmonic Valve: Mild MD AV Regurgitation: No AR seen AV Stenosis: [...] no , no MS, normal TV, Mild MD. Diastolic function: Grade I, altered relax. w/N. [...] MD By signing this report, the attending pumper head certifies that he or she has personally supervised and interpreted the echocardiogram and has reviewed and or edited and agrees with the written comments contained within the report. us Dana Cancino MD CV ECHO PROCEDURES Final Res ult * (ABNORMAL) eGFR (06/17/2024 1:25 AM EVENT DECORATOR) eGFR 32(L) >=60 mL/min/1. 73 m2 Comment: [...] last reviewed 2021. Blood 06/17/2024 1:25 AM EVENT DECORATOR 06/17/2024 1:49 AM EVENT DECORATOR us Nasir Lyons MD LAB BLOOD ORDERABLES Mel l Result [facility] Department [place] [address] * (ABNORMAL) CBC with auto differential (06/17/2024 1:25 AM EVENT DECORATOR) WBC 11.3(H) 3.8 - 9.9 K/cumm Hgb 11.4(L) 11.9 - 15.5 g/dL [facility] Hct 35.1(L) 35.6 - 45.5 % [facility] Plt 156 150 - 400 K/cumm [facility] MPV 10.1 9.1 - 12.3 fL [facility] RBC 3.62(L) 3.90 - 5.20 M/cumm [facility] MCV 97.0(H) 81.3 - 96.4 fL [facility] MCH 31.5 27.1 - 33.3 pg [facility] MCHC 32.5 32.3 - 35.7 g/dL [facility] RDW CV 14.6 11.1 - 14.9 % [facility] RDW SD 52.3(H) 35.7 - 48.1 fL [facility] NRBC abs 0.00 0.00 - 0.01 K/cumm [facility] Blood 06/17/2024 1:25 AM EVENT DECORATOR 06/17/2024 1:50 AM EVENT DECORATOR Nasir Lyons MD LAB BLOOD ORDERABLES Mel l Result [facility] Department [place] [address] * (ABNORMAL) Manual Differential (06/17/2024 1:25 AM EVENT DECORATOR) Pathologist [facility] Differential Manual Cells Counted 126 [facility] Neutrophil abs 2.8 1.5 - 6.5 K/cumm [facility] Imm gran abs 0.1 0.0 - 0.1 K/cumm [facility] Lymphocyte abs 6.9(H) 0.8 - 3.3 K/cumm [facility] Monocyte abs 1.5(H) 0.2 - 0.8 K/cumm [facility] Neutrophil pct 24.6 % [facility] Comment: Interpretive Data Percent cell count reference ranges are not reported, since discordance with absolute values may lead to misinterpretation of CBC data. Current Interpretive Data was last revised on 2017. Lymphocyte pct 60.3 % [facility] Comment: Interpretive Data Percent cell count reference ranges are not reported, since discordance with absolute values may lead to misinterpretation of CBC data. Current Interpretive Data was last revised on 2017. Monocyte pct 13.5 % [facility] Comment: Interpretive Data Percent cell count reference ranges are not reported, since discordance with absolute values may lead to misinterpretation of CBC data. Current Interpretive Data was last revised on 2017. Metamyelocyte pct 0.8 % [facility] Variant lymph pct 0.8 % [facility] Blood 06/17/2024 1:25 AM EVENT DECORATOR 06/17/2024 1:54 AM EVENT DECORATOR us Nasir Lyons MD LAB BLOOD ORDERABLES Mel l Result [facility] Department [place] [address] * Magnesium (06/17/2024 1:25 AM EVENT DECORATOR) [facility] Magnesium 1.8 1.4 - 2.5 mg/dL Blood 06/17/2024 1:25 AM EVENT DECORATOR 06/17/2024 1:49 AM EVENT DECORATOR Nasir Lyons MD LAB BLOOD ORDERABLES Mel l Result Performing Organization Address [facility] de Phone Number [facility] Department [place] [address] * Hepatic function panel (06/17/2024 1:25 AM EVENT DECORATOR) Pathologist [facility] Bilirubin, total 0.6 0.1 - 1.2 mg/dL Bilirubin, direct <0.2 0.1 - 0.3 mg/dL [facility] Comment:Reviewed Protein, pl 6.6 6.5 - 8.5 g/dL [facility] Albumin 3.9 3.5 - 5.0 g/dL [facility] Alk phos 75 40 - 130 Units/L [facility] ALT 11 7 - 45 Units/L [facility] AST 25 10 - 45 Units/L [facility] Blood 06/17/2024 1:25 AM EVENT DECORATOR 06/17/2024 1:49 AM EVENT DECORATOR Nasir Lyons MD LAB BLOOD ORDERABLES Mel l Result Performing Organization Address [facility] de Phone Number [facility] Department [place] [address] * (ABNORMAL) Basic metabolic panel (06/17/2024 1:25 AM EVENT DECORATOR) Pathologist [facility] Sodium 142 135 - 145 mmol/L Potassium, pl 3.6 3.3 - 4.9 mmol/L [facility] Chloride 107 97 - 110 mmol/L [facility] CO2 22 22 - 32 mmol/L [facility] Anion gap 13 2 - 15 mmol/L [facility] BUN 15 6 - 25 mg/dL [facility] Creatinine 1.65(H) 0.60 - 1.10 mg/dL [facility] Glucose 107 70 - 199 mg/dL [facility] Comment: Interpretive Data Fasting glucose >/= 126 [...] 2022. Calcium 8.3(L) 8.5 - 10.3 mg/dL [facility] Blood 06/17/2024 1:25 AM EVENT DECORATOR 06/17/2024 1:49 AM EVENT DECORATOR Nasir Lyons MD LAB BLOOD ORDERABLES Mel l Result Performing Organization Address [facility]/ZIP Co de Phone Number [facility] Department [place] [address] * FL Fluoroscopy < 1 Hour (06/16/2024 3:37 PM EVENT DECORATOR) Narrative [email or web address] - 06/16/2024 3:37 PM EVENT DECORATOR The images from this study are not interpreted by Radiology. ??Please refer to the physician's procedure / OR operative note. Mela Dejesus MD IMG FLUOROSCOPY PROCEDURE S Final Result Performing Organization Address [facility] Co de Phone Number [email or web address] * MD AN ELECTIVE SUPRAGLOTTIC AIRWAY, MD AN PROCEDURE PLACEHOLDER (06/16/2024 3:30 PM EVENT DECORATOR) Narrative Danielle Kirk CRNA - 06/16/2024 3:30 PM EVENT DECORATOR Danielle Kirk CRNA ? 06/16/2024 ??3:31 PM Airway Patient location: OR Urgency: elective Indications for airway management: anesthesia Difficult airway: no Staff: Supervising provider: Elissa Rosales MD Placed by: NURSERY WORKER: Danielle Kirk CRNA Emergent airway documentation: Risks [...] esult * (ABNORMAL) eGFR (06/16/2024 12:50 AM EVENT DECORATOR) eGFR 26(L) >=60 mL/min/1. 73 m2 Comment: [...] reviewed 2021. Blood 06/16/2024 12:5 0 AM EVENT DECORATOR 06/16/2024 1:22 AM EVENT DECORATOR us Nasir Lyons MD LAB BLOOD ORDERABLES Mel l Result [facility] Department [place] [address] * (ABNORMAL) CBC with auto differential (06/16/2024 12:50 AM EVENT DECORATOR) [facility] WBC 11.2(H) 3.8 - 9.9 K/cumm Hgb 11.0(L) 11.9 - 15.5 g/dL [facility] Hct 35.0(L) 35.6 - 45.5 % [facility] Plt 149(L) 150 - 400 K/cumm [facility] MPV 10.1 9.1 - 12.3 fL [facility] RBC 3.53(L) 3.90 - 5.20 M/cumm [facility] MCV 99.2(H) 81.3 - 96.4 fL [facility] MCH 31.2 27.1 - 33.3 pg [facility] MCHC 31.4(L) 32.3 - 35.7 g/dL [facility] RDW CV 15.0(H) 11.1 - 14.9 % [facility] RDW SD 54.4(H) 35.7 - 48.1 fL [facility] NRBC abs 0.00 0.00 - 0.01 K/cumm [facility] Blood 06/16/2024 12:5 0 AM EVENT DECORATOR 06/16/2024 1:22 AM EVENT DECORATOR Nasir Lyons MD LAB BLOOD ORDERABLES Mel badillo Result [facility] Department [place] [address] * (ABNORMAL) Manual Differential (06/16/2024 12:50 AM EVENT DECORATOR) [facility] Differential Manual Cells Counted 124 [facility] Neutrophil abs 1.9 1.5 - 6.5 K/cumm [facility] Imm gran abs 0.0 0.0 - 0.1 K/cumm [facility] Lymphocyte abs 8.0(H) 0.8 - 3.3 K/cumm [facility] Monocyte abs 1.3(H) 0.2 - 0.8 K/cumm [facility] Neutrophil pct 16.9 % [facility] Comment: Interpretive Data Percent cell count reference ranges are not reported, since discordance with absolute values may lead to misinterpretation of CBC data. Current Interpretive Data was last revised on 2017. Lymphocyte pct 71.8 % [facility] Comment: Interpretive Data Percent cell count reference ranges are not reported, since discordance with absolute values may lead to misinterpretation of CBC data. Current Interpretive Data was last revised on 2017. Monocyte pct 11.3 % [facility] Comment: Interpretive Data Percent cell count reference ranges are not reported, since discordance with absolute values may lead to misinterpretation of CBC data. Current Interpretive Data was last revised on 2017. Blood 06/16/2024 12:5 0 AM EVENT DECORATOR 06/16/2024 3:05 AM EVENT DECORATOR Nasir Lyons MD LAB BLOOD ORDERABLES Mel l Result Performing Organization Address City/[facility]/ZIP Co de Phone Number [facility] [place] [place] [address] * Magnesium (06/16/2024 12:50 AM EVENT DECORATOR) Magnesium 1.9 1.4 - 2.5 mg/dL Blood 06/16/2024 12:5 0 AM EVENT DECORATOR 06/16/2024 1:22 AM EVENT DECORATOR Nasir Lyons MD LAB BLOOD ORDERABLES Mel l Result [facility] [place] [place] [address] * (ABNORMAL) Hepatic function panel (06/16/2024 12:50 AM EVENT DECORATOR) Bilirubin, total 0.8 0.1 - 1.2 mg/dL Bilirubin, direct 0.2 0.1 - 0.3 mg/dL [facility] Comment:Reviewed Protein, pl 6.3(L) 6.5 - 8.5 g/dL [facility] Albumin 4.1 3.5 - 5.0 g/dL [facility] Alk phos 71 40 - 130 Units/L [facility] ALT 9 7 - 45 Units/L [facility] AST 26 10 - 45 Units/L [facility] Blood 06/16/2024 12:5 0 AM EVENT DECORATOR 06/16/2024 1:22 AM EVENT DECORATOR us Nasir Lyons MD LAB BLOOD ORDERABLES Mel l Result [facility] Department [place] [address] * (ABNORMAL) Basic metabolic panel (06/16/2024 12:50 AM EVENT DECORATOR) [facility] Sodium 141 135 - 145 mmol/L Potassium, pl 4.0 3.3 - 4.9 mmol/L [facility] Chloride 108 97 - 110 mmol/L [facility] CO2 22 22 - 32 mmol/L [facility] Anion gap 11 2 - 15 mmol/L [facility] BUN 17 6 - 25 mg/dL [facility] Creatinine 1.97(H) 0.60 - 1.10 mg/dL [facility] Glucose 107 70 - 199 mg/dL [facility] Comment: Interpretive Data Fasting glucose >/= 126 [...] 2022. Calcium 8.7 8.5 - 10.3 mg/dL [facility] Blood 06/16/2024 12:5 0 AM EVENT DECORATOR 06/16/2024 1:22 AM EVENT DECORATOR us Nasir Lyons MD LAB BLOOD ORDERABLES Mel l Result Performing Organization Address [facility] Co de Phone Number [facility] Department [place] [address] * (ABNORMAL) eGFR (06/15/2024 1:26 AM EVENT DECORATOR) eGFR 27(L) >=60 mL/min/1. 73 m2 Comment: [...] last reviewed 2021. Blood 06/15/2024 1:26 AM EVENT DECORATOR 06/15/2024 1:36 AM EVENT DECORATOR us Nasir Lyons MD LAB BLOOD ORDERABLES Mel l Result Performing Organization Address [facility] Co de Phone Number [facility] Department [place] [address] * (ABNORMAL) CBC with auto differential (06/15/2024 1:26 AM EVENT DECORATOR) [facility] WBC 10.5(H) 3.8 - 9.9 K/cumm Hgb 10.9(L) 11.9 - 15.5 g/dL [facility] Hct 34.1(L) 35.6 - 45.5 % [facility] Plt 149(L) 150 - 400 K/cumm [facility] MPV 10.1 9.1 - 12.3 fL [facility] RBC 3.47(L) 3.90 - 5.20 M/cumm [facility] MCV 98.3(H) 81.3 - 96.4 fL [facility] MCH 31.4 27.1 - 33.3 pg [facility] MCHC 32.0(L) 32.3 - 35.7 g/dL [facility] RDW CV 14.8 11.1 - 14.9 % [facility] RDW SD 53.0(H) 35.7 - 48.1 fL [facility] NRBC abs 0.00 0.00 - 0.01 K/cumm [facility] Blood 06/15/2024 1:26 AM EVENT DECORATOR 06/15/2024 1:36 AM EVENT DECORATOR us Nasir Lyons MD LAB BLOOD ORDERABLES Mel badillo Result [facility] Department [place] [address] * (ABNORMAL) Manual Differential (06/15/2024 1:26 AM EVENT DECORATOR) [facility] Differential Manual Cells Counted 122 [facility] Neutrophil abs 4.5 1.5 - 6.5 K/cumm [facility] Imm gran abs 0.0 0.0 - 0.1 K/cumm [facility] Lymphocyte abs 5.8(H) 0.8 - 3.3 K/cumm [facility] Monocyte abs 0.2 0.2 - 0.8 K/cumm [facility] Basophil abs 0.1 0.0 - 0.1 K/cumm [facility] Neutrophil pct 42.6 % [facility] Comment: Interpretive Data Percent cell count reference ranges are not reported, since discordance with absolute values may lead to misinterpretation of CBC data. Current Interpretive Data was last revised on 2017. Lymphocyte pct 49.3 % [facility] Comment: Interpretive Data Percent cell count reference ranges are not reported, since discordance with absolute values may lead to misinterpretation of CBC data. Current Interpretive Data was last revised on 2017. Monocyte pct 1.6 % [facility] Comment: Interpretive Data Percent cell count reference ranges are not reported, since discordance with absolute values may lead to misinterpretation of CBC data. Current Interpretive Data was last revised on 2017. Basophil pct 0.8 % [facility] Comment: Interpretive Data Percent cell count reference ranges are not reported, since discordance with absolute values may lead to misinterpretation of CBC data. Current Interpretive Data was last revised on 2017. Variant lymph pct 5.7 % [facility] RBC morphology Normal [facility] Platelet estimate Adequate [facility] Blood 06/15/2024 1:26 AM EVENT DECORATOR 06/15/2024 1:39 AM EVENT DECORATOR Nasir Lyons MD LAB BLOOD ORDERABLES Mel l Result Performing Organization Address City/[facility]/ZIP Co de Phone Number [facility] Department [place] [address] * Magnesium (06/15/2024 1:26 AM EVENT DECORATOR) Magnesium 1.8 1.4 - 2.5 mg/dL Blood 06/15/2024 1:26 AM EVENT DECORATOR 06/15/2024 1:36 AM EVENT DECORATOR Nasir Lyons MD LAB BLOOD ORDERABLES Mel l Result Performing Organization Address City/[facility]/ZIP Co de Phone Number [facility] Department [place] [address] * (ABNORMAL) Hepatic function panel (06/15/2024 1:26 AM EVENT DECORATOR) [facility] Bilirubin, total 0.6 0.1 - 1.2 mg/dL Bilirubin, direct <0.2 0.1 - 0.3 mg/dL [facility] Protein, pl 6.3(L) 6.5 - 8.5 g/dL [facility] Albumin 4.0 3.5 - 5.0 g/dL [facility] Alk phos 71 40 - 130 Units/L [facility] ALT 11 7 - 45 Units/L [facility] AST 25 10 - 45 Units/L [facility] Blood 06/15/2024 1:26 AM EVENT DECORATOR 06/15/2024 1:36 AM EVENT DECORATOR Nasir Lyons MD LAB BLOOD ORDERABLES Mel l Result [facility] Department [place] [address] * (ABNORMAL) Basic metabolic panel (06/15/2024 1:26 AM EVENT DECORATOR) [facility] Sodium 139 135 - 145 mmol/L Potassium, pl 4.1 3.3 - 4.9 mmol/L [facility] Chloride 107 97 - 110 mmol/L [facility] CO2 22 22 - 32 mmol/L [facility] Anion gap 10 2 - 15 mmol/L [facility] BUN 18 6 - 25 mg/dL [facility] Creatinine 1.94(H) 0.60 - 1.10 mg/dL [facility] Glucose 127 70 - 199 mg/dL [facility] Comment: Interpretive Data Fasting glucose >/= 126 [...] 2022. Calcium 8.9 8.5 - 10.3 mg/dL [facility] Blood 06/15/2024 1:26 AM EVENT DECORATOR 06/15/2024 1:36 AM EVENT DECORATOR us Nasir Lyons MD LAB BLOOD ORDERABLES Mel l Result Performing Organization Address City/[facility]/ZIP Co de Phone Number [facility] Department [place] [address] * ECG 12 lead (06/14/2024 8:35 PM EVENT DECORATOR) Ventricular Rate EKG/Min 68 BPM [facility] Atrial Rate 68 BPM [facility] MD-Interval (MSEC) 134 ms [facility] QRS-Interval (MSEC) 104 ms [facility] QT-Interval (MSEC) 430 ms [facility] QTc 457 ms [facility] P Mosca -28 degrees [facility] R [place] -2 degrees [facility] T [place]osca 2 degrees [facility] Diagnosis Normal sinus rhythm Normal ECG When compared with ECG of 17-APR-2019 07:30, No significant change was found Confirmed by PIPER WILSON M.D ([id number]) on 06/15/2024 5:17:10 PM [facility] 06/14/2024 8:35 PM EVENT DECORATOR 06/15/2024 5:17 PM EVENT DECORATOR us Eren Lund MD ECG ORDERABLES Final Result Performing Organization Address [facility]/ZIP Co de Phone Number [facility] [employer] [facility] * CT Abdomen Pelvis W Contrast (06/14/2024 2:26 AM EVENT DECORATOR) Anatomical Region Laterality Modality Body N/A Computed Tomogra phy 06/14/2024 4:36 AM EVENT DECORATOR Impressions 06/14/2024 9:47 AM EVENT DECORATOR 1. Slight increase in size of multiple [...] Becky Golden M.D. Narrative 06/14/2024 9:47 AM EVENT DECORATOR EXAMINATION: ??Computed tomography of the abdomen and [...] it. Electronically signed by: Becky Golden M.D. Kelton Keys MD IMG CT PROCEDURES Final Result * (ABNORMAL) eGFR (06/14/2024 12:23 AM EVENT DECORATOR) eGFR 29(L) >=60 mL/min/1. 73 m2 Comment: [...] reviewed 2021. Blood 06/14/2024 12:2 3 AM EVENT DECORATOR 06/14/2024 12:35 AM EVENT DECORATOR us Kelton Keys MD LAB BLOOD ORDERABLES Final Res ult [facility] Department [place] [address] * (ABNORMAL) Differential, auto (06/14/2024 12:23 AM EVENT DECORATOR) Neutrophil abs 3.8 1.5 - 6.5 K/cumm Imm gran abs 0.0 0.0 - 0.1 K/cumm [facility] Lymphocyte abs 2.4 0.8 - 3.3 K/cumm [facility] Monocyte abs 3.4(H) 0.2 - 0.8 K/cumm [facility] Eosinophil abs 0.0 0.0 - 0.5 K/cumm [facility] Basophil abs 0.0 0.0 - 0.1 K/cumm [facility] Neutrophil pct 39.4 % [facility] Comment: Confirmed by smear review Interpretive Data Percent cell count reference ranges are not reported, since discordance with absolute values may lead to misinterpretation of CBC data. Current Interpretive Data was last revised on 2017. Imm gran pct 0.4 % [facility] Comment: Interpretive Data Percent cell count reference ranges are not reported, since discordance with absolute values may lead to misinterpretation of CBC data. Current Interpretive Data was last revised on 2017. Lymphocyte pct 24.8 % [facility] Comment: Interpretive Data Percent cell count reference ranges are not reported, since discordance with absolute values may lead to misinterpretation of CBC data. Current Interpretive Data was last revised on 2017. Monocyte pct 35.1 % [facility] Comment: Interpretive Data Percent cell count reference ranges are not reported, since discordance with absolute values may lead to misinterpretation of CBC data. Current Interpretive Data was last revised on 2017. Eosinophil pct 0.0 % [facility] Comment: Interpretive Data Percent cell count reference ranges are not reported, since discordance with absolute values may lead to misinterpretation of CBC data. Current Interpretive Data was last revised on 2017. Basophil pct 0.3 % [facility] Comment: Interpretive Data Percent cell count reference ranges are not reported, since discordance with absolute values may lead to misinterpretation of CBC data. Current Interpretive Data was last revised on 2017. Blood 06/14/2024 12:2 3 AM EVENT DECORATOR 06/14/2024 12:36 AM EVENT DECORATOR us Kelton Keys MD LAB BLOOD ORDERABLES Final Res ult [facility] Department [place] [address] * (ABNORMAL) Pro B-type natriuretic peptide (06/14/2024 12:23 AM EVENT DECORATOR) NT-proBNP 3,993(H) <=450 pg/mL Comment: Interpretive Comments: [...] Date: 2018. Blood 06/14/2024 12:2 3 AM EVENT DECORATOR 06/14/2024 12:35 AM EVENT DECORATOR us Armida Guajardo MD LAB BLOOD ORDERABLES Final Resul t [facility] Department [place] [address] * (ABNORMAL) CBC with auto differential (06/14/2024 12:23 AM EVENT DECORATOR) WBC 9.8 3.8 - 9.9 K/cumm Hgb 11.6(L) 11.9 - 15.5 g/dL [facility] Hct 36.6 35.6 - 45.5 % [facility] Plt 145(L) 150 - 400 K/cumm [facility] MPV 10.9 9.1 - 12.3 fL [facility] RBC 3.68(L) 3.90 - 5.20 M/cumm [facility] [facility] MCV 99.5(H) 81.3 - 96.4 fL [facility] MCH 31.5 27.1 - 33.3 pg [facility] MCHC 31.7(L) 32.3 - 35.7 g/dL [facility] RDW CV 14.7 11.1 - 14.9 % [facility] RDW SD 54.8(H) 35.7 - 48.1 fL [facility] NRBC abs 0.00 0.00 - 0.01 K/cumm [facility] Blood 06/14/2024 12:2 3 AM EVENT DECORATOR 06/14/2024 12:36 AM EVENT DECORATOR us Kelton Keys MD LAB BLOOD ORDERABLES Final Res ult [facility] Department [place] [address] * (ABNORMAL) Comprehensive metabolic panel (06/14/2024 12:23 AM EVENT DECORATOR) Sodium 139 135 - 145 mmol/L Potassium, pl 4.6 3.3 - 4.9 mmol/L [facility] Chloride 110 97 - 110 mmol/L [facility] CO2 19(L) 22 - 32 mmol/L [facility] Anion gap 10 2 - 15 mmol/L [facility] BUN 16 6 - 25 mg/dL [facility] Creatinine 1.79(H) 0.60 - 1.10 mg/dL [facility] Glucose 141 70 - 199 mg/dL [facility] Comment: Interpretive Data Fasting glucose >/= 126 [...] 2022. Calcium 8.9 8.5 - 10.3 mg/dL [facility] Bilirubin, total 0.4 0.1 - 1.2 mg/dL [facility] Protein, pl 6.4(L) 6.5 - 8.5 g/dL [facility] Albumin 3.9 3.5 - 5.0 g/dL [facility] Alk phos 79 40 - 130 Units/L [facility] ALT 8 7 - 45 Units/L [facility] AST 30 10 - 45 Units/L [facility] Blood 06/14/2024 12:2 3 AM EVENT DECORATOR 06/14/2024 12:35 AM EVENT DECORATOR us Kelton Keys MD LAB BLOOD ORDERABLES Final Res ult [facility] Department [place] [address] * (ABNORMAL) Urinalysis reflex to microscopic and culture Urine, clean voided (06/13/2024 6:05 PM EVENT DECORATOR) Color, ur Straw Yellow Clarity, ur Clear Clear [facility] Specific gravity, ur 1.015 1.003 - 1.030 [facility] pH, urine 6.0 [facility] Comment: Interpretive Data ? Urine pH is affected by diet, medications, systemic acid-base disturbances, and renal tubular function. ??pH may affect urinary stone formation. ??For example, urine pH below 6.0 may help reduce the tendency for calcium phosphate stones and pH greater than 6.0 may reduce the tendency for uric acid stone formation. Source: [facility] Current Interpretive Data was last revised on 2017 Protein, ur ql 1+(A) Negative [facility] Glucose, ur ql Negative Negative [facility] Ketones, ur Trace Negative [facility] Bilirubin, ur Negative Negative [facility] Blood, ur 1+(A) Negative [facility] Urobilinogen, ur <2.0 <2.0 mg/dL [facility] Nitrite, ur Negative Negative [facility] Leukocyte esterase, ur 1+(A) Negative [facility] UA reflex comment Reflex to microscopic UA will be performed. [facility] Urine, clean voided 06/13/2024 6:05 PM EVENT DECORATOR 06/13/2024 6:14 PM EVENT DECORATOR us Sharona Gomez NP LAB MICROBIOLOGY - GENERA L ORDERABLES Final Result Performing Organization Address [facility]/State/ZIP Co de Phone Number [facility] Department [place] [address] * (ABNORMAL) Urinalysis, microscopic only (06/13/2024 6:05 PM EVENT DECORATOR) [facility] WBC, ur 6-10(A) 0 - 5 /HPF RBC, ur 3-5(A) 0 - 2 /HPF [facility] Epithelial cells, squamous, ur 1-5 0 - 5 /HPF [facility] Bacteria, ur Trace(A) [facility] Mucous, ur Present(A) [facility] Hyaline casts, ur 1-5 0 - 10 /LPF [facility] Culture Reflex Comment Reflex conditions for urine culture (WBC >10) not met. [facility] Urine, clean voided 06/13/2024 6:05 PM EVENT DECORATOR 06/13/2024 6:14 PM EVENT DECORATOR Sharona Gomez HEAD WAITER/WAITRESS LAB URINE ORDERABLES [facility] Result Performing Organization Address [facility]/State/ZIP Co de Phone Number [facility] Department [place] [address] * Respiratory pathogen panel Nasopharyngeal (06/13/2024 4:56 PM EVENT DECORATOR) [facility] Influenza A RNA Not Detected Not Detected Influenza B RNA Not Detected Not Detected [facility] RSV RNA Not Detected Not Detected [facility] COVID-19 RNA Not Detected Not Detected [facility] Coronavirus 229E RNA Not Detected Not Detected [facility] Coronavirus HKU1 RNA Not Detected Not Detected [facility] Coronavirus NL63 RNA Not Detected Not Detected [facility] Coronavirus OC43 RNA Not Detected Not Detected [facility] Adenovirus DNA Not Detected Not Detected [facility] Metapneumovirus RNA Not Detected Not Detected [facility] Rhinovirus/Enterov irus RNA Not Detected Not Detected [facility] Parainfluenza 1 RNA Not Detected Not Detected [facility] Parainfluenza 2 RNA Not Detected Not Detected [facility] Parainfluenza 3 RNA Not Detected Not Detected [facility] Parainfluenza 4 RNA Not Detected Not Detected [facility] B. pertussis DNA Not Detected Not Detected [facility] B. parapertussis DNA Not Detected Not Detected [facility] C. pneumoniae DNA Not Detected Not Detected [facility] M. pneumoniae DNA Not Detected Not Detected [facility] Nasopharyngeal 06/13/2024 4: 56 PM EVENT DECORATOR 06/13/2024 5:34 PM EVENT DECORATOR Narrative CERNER BJ - 06/13/2024 6:38 PM EVENT DECORATOR Is the Patient experiencing symptoms consistent with COVID?->Yes Surveillance testing for transplant patient?->No ??Interpretive Data The Enigmate[employer] FilmArray Respiratory Panel (RP2.1) assay is a [...] assay has FDA clearance for testing of HEAD WAITER/WAITRESS swabs. ??The performance of additional specimen types has been assessed by the performing laboratory. ??The performance characteristics of this assay have been determined by [facility] Molecular Infectious Disease Laboratory. Current interpretive data was last revised on 22. Sharona Gomez HEAD WAITER/WAITRESS LAB MICROBIOLOGY - GENERA L ORDERABLES Final Result Performing Organization Address [facility] Co de Phone Number [facility] [place] [employer] [place] [address] * POC Blood Gas and Chemistries, Arterial - (06/13/2024 4:53 PM EVENT DECORATOR) [facility] Lactate, POC 1.3 0.7 - 2.2 mmol/L Hct, POC 37.0 36.3 - 45.3 % [facility] Total Hb, POC 12.2 11.9 - 15.5 g/dL [facility] Blood 06/13/2024 4:53 PM EVENT DECORATOR 06/13/2024 4:53 PM EVENT DECORATOR Eren Lund MD LAB POCT ORDERABLES - DEVICE Final Result Performing Organization Address [facility] de Phone Number JASON [facility] Department [employer] [place] [address] * (ABNORMAL) eGFR (06/13/2024 4:30 PM EVENT DECORATOR) [facility] eGFR 25(L) >=60 mL/min/1. 73 m2 Comment: [...] last reviewed 2021. Blood 06/13/2024 4:30 PM EVENT DECORATOR 06/13/2024 4:57 PM EVENT DECORATOR us Sharona Gomez NP LAB BLOOD ORDERABLES Mel l Result Performing Organization Address City/[facility]/ZIP Co de Phone Number [facility] [place] [address] * Senior staff review (06/13/2024 4:30 PM EVENT DECORATOR) Senior Staff Review Specimen Blood Senior Staff Review Review Done [facility] Comment:Reviewed by senior james salcedo. 06/14/2024 07:47:49 EVENT DECORATOR by MATT Blankenship. Blood 06/13/2024 4:30 PM EVENT DECORATOR 06/13/2024 5:36 PM EVENT DECORATOR us Eren Lund MD LAB BLOOD ORDERABLES Final Re sult Performing Organization Address City/[facility]/ZIP Co de Phone Number [facility] [place] [address] * (ABNORMAL) CBC with auto differential (06/13/2024 4:30 PM EVENT DECORATOR) [facility] WBC 10.1(H) 3.8 - 9.9 K/cumm Hgb 12.0 11.9 - 15.5 g/dL [facility] Hct 37.4 35.6 - 45.5 % [facility] Plt 142(L) 150 - 400 K/cumm [facility] MPV 9.7 9.1 - 12.3 fL [facility] RBC 3.78(L) 3.90 - 5.20 M/cumm [facility] MCV 98.9(H) 81.3 - 96.4 fL [facility] MCH 31.7 27.1 - 33.3 pg [facility] MCHC 32.1(L) 32.3 - 35.7 g/dL [facility] RDW CV 14.6 11.1 - 14.9 % [facility] RDW SD 53.0(H) 35.7 - 48.1 fL [facility] NRBC abs 0.00 0.00 - 0.01 K/cumm [facility] Blood 06/13/2024 4:30 PM EVENT DECORATOR 06/13/2024 5:36 PM EVENT DECORATOR Sharona Gomez NP LAB BLOOD ORDERABLES Edit ed Result - Final [facility] Department [place] [address] * (ABNORMAL) Manual Differential (06/13/2024 4:30 PM EVENT DECORATOR) [facility] Differential Manual Cells Counted 118 [facility] Neutrophil abs 5.1 1.5 - 6.5 K/cumm [facility] Lymphocyte abs 4.4(H) 0.8 - 3.3 K/cumm [facility] Monocyte abs 0.6 0.2 - 0.8 K/cumm [facility] Neutrophil pct 50.9 % [facility] Comment: Interpretive Data Percent cell count reference ranges are not reported, since discordance with absolute values may lead to misinterpretation of CBC data. Current Interpretive Data was last revised on 2017. Lymphocyte pct 28.8 % [facility] Comment: Interpretive Data Percent cell count reference ranges are not reported, since discordance with absolute values may lead to misinterpretation of CBC data. Current Interpretive Data was last revised on 2017. Monocyte pct 5.9 % [facility] Comment: Interpretive Data Percent cell count reference ranges are not reported, since discordance with absolute values may lead to misinterpretation of CBC data. Current Interpretive Data was last revised on 2017. Variant lymph pct 14.4 % [facility] RBC morphology Present(A) [facility] Anisocytosis Slight(A) [facility] Poikilocytosis Slight(A) [facility] Macrocytes 3-7/HPF(A) [facility] Schistocytes 1-2/HPF(A) [facility] Blood 06/13/2024 4:30 PM EVENT DECORATOR 06/13/2024 5:36 PM EVENT DECORATOR Sharona Gomez HEAD WAITER/WAITRESS LAB BLOOD ORDERABLES Mel l Result [facility] Department [place] [address] * Phosphorus (06/13/2024 4:30 PM EVENT DECORATOR) Phosphorus, pl 2.7 2.3 - 4.5 mg/dL Blood (Blood, Venous) 06/13/2024 4:30 PM EVENT DECORATOR 06/13/2024 4:57 PM EVENT DECORATOR Sharona Gomez HEAD WAITER/WAITRESS LAB BLOOD ORDERABLES Mel l Result [facility] Department [place] [address] * Magnesium (06/13/2024 4:30 PM EVENT DECORATOR) Magnesium 1.9 1.4 - 2.5 mg/dL Blood (Blood, Venous) 06/13/2024 4:30 PM EVENT DECORATOR 06/13/2024 4:57 PM EVENT DECORATOR Sharona Gomez HEAD WAITER/WAITRESS LAB BLOOD ORDERABLES Mel badillo Result [facility] Department [place] [address] * (ABNORMAL) Comprehensive metabolic panel (06/13/2024 4:30 PM EVENT DECORATOR) Sodium 139 135 - 145 mmol/L Potassium, pl 4.4 3.3 - 4.9 mmol/L [facility] Chloride 107 97 - 110 mmol/L [facility] CO2 22 22 - 32 mmol/L [facility] Anion gap 10 2 - 15 mmol/L [facility] BUN 18 6 - 25 mg/dL [facility] Creatinine 2.03(H) 0.60 - 1.10 mg/dL [facility] Glucose 121 70 - 199 mg/dL [facility] Comment: Interpretive Data Fasting glucose >/= 126 [...] 2022. Calcium 9.8 8.5 - 10.3 mg/dL [facility] Bilirubin, total 0.6 0.1 - 1.2 mg/dL [facility] Protein, pl 6.6 6.5 - 8.5 g/dL [facility] Albumin 4.2 3.5 - 5.0 g/dL [facility] Alk phos 85 40 - 130 Units/L [facility] ALT 14 7 - 45 Units/L [facility] AST 32 10 - 45 Units/L [facility] Blood 06/13/2024 4:30 PM EVENT DECORATOR 06/13/2024 4:57 PM EVENT DECORATOR us Sharona Gomez NP LAB BLOOD ORDERABLES Mel l Result Performing Organization Address [facility] de Phone Number [facility] Department [place] [address] * (ABNORMAL) eGFR (06/09/2024 1:27 PM EVENT DECORATOR) eGFR 30(L) >=60 mL/min/1. 73 m2 Comment: [...] last reviewed 2021. Blood 06/09/2024 1:27 PM EVENT DECORATOR 06/09/2024 1:40 PM EVENT DECORATOR us Claude Browning MD LAB BLOOD ORDERABLES Mel l Result Performing Organization Address City/State/[facility] Co de Phone Number JASON I[facility] Department [place] [address] * (ABNORMAL) Chromogranin A (06/09/2024 1:27 PM EVENT DECORATOR) Chromogranin A 4537(H) <93 ng/mL [facility] Comment: Impaired renal or hepatic function or treatment with proton pump inhibitors may result in artifactual elevations of Chromogranin A. ADDITIONAL INFORMATION The testing method is a homogeneous time-resolved immunofluorescent assay manufactured by [employer] and performed on the VarVeeor Compact Plus. ? Values obtained with different [...] examination and other findings. Test Performed by: [place] [address] Supervisor Paper Coating: Carley Tony Ph.D.; CLIA# [id number] Blood 06/09/2024 1:27 PM EVENT DECORATOR 06/09/2024 3:08 PM EVENT DECORATOR Eren Lund MD LAB BLOOD ORDERABLES Final Re sult Performing Organization Address City/[facility]/ZIP Co de Phone Number JASON BLACK [place] [facility] Department [place] [address] [place] * (ABNORMAL) Vitamin D 25 hydroxy (06/09/2024 1:27 PM EVENT DECORATOR) Vitamin D 25-OH 16(L) 30 - 80 ng/mL Blood 06/09/2024 1:27 PM EVENT DECORATOR 06/09/2024 1:40 PM EVENT DECORATOR Eren Lund MD LAB BLOOD ORDERABLES Final Re sult Performing Organization Address [facility] de Phone Number [facility] [place] [address] * Phosphorus (06/09/2024 1:27 PM EVENT DECORATOR) Phosphorus, pl 3.1 2.3 - 4.5 mg/dL Blood 06/09/2024 1:27 PM EVENT DECORATOR 06/09/2024 1:40 PM EVENT DECORATOR Eren uLnd MD LAB BLOOD ORDERABLES Final Re sult Performing Organization Address [facility] de Phone Number [facility] [place] [address] * (ABNORMAL) Lipid panel (06/09/2024 1:27 PM EVENT DECORATOR) Pathologist [facility] Cholesterol 135 30 - 199 mg/dL Comment: [...] revised on 2018. Triglycerides 160(H) <=149 mg/dL [facility] Comment: Interpretive Data Ages < or = [...] revised on 2018. HDL 39(L) >=40 mg/dL [facility] Comment: Interpretive Data Ages < or [...] 2018. LDL, calculated 68 <=129 mg/dL [facility] Comment: Interpretive Data Ages < or [...] revised on 2024. Non-HDL Cholesterol 96 mg/dL [facility] Comment: Interpretive Data Ages < or [...] last revised on 2018. Chol/HDL ratio 3 [facility] Blood 06/09/2024 1:27 PM EVENT DECORATOR 06/09/2024 1:40 PM EVENT DECORATOR us Eren Lund MD LAB BLOOD ORDERABLES Final Re sult [facility] Department [place] [address] * (ABNORMAL) Comprehensive metabolic panel (06/09/2024 1:27 PM EVENT DECORATOR) Pathologist [facility] Sodium 140 135 - 145 mmol/L Potassium, pl 4.1 3.3 - 4.9 mmol/L [facility] Chloride 109 97 - 110 mmol/L [facility] CO2 24 22 - 32 mmol/L [facility] Anion gap 7 2 - 15 mmol/L [facility] BUN 20 6 - 25 mg/dL [facility] Creatinine 1.73(H) 0.60 - 1.10 mg/dL [facility] Glucose 90 70 - 199 mg/dL [facility] Comment: Interpretive Data Fasting glucose >/= 126 [...] 2022. Calcium 9.6 8.5 - 10.3 mg/dL [facility] Bilirubin, total 0.6 0.1 - 1.2 mg/dL [facility] Protein, pl 6.4(L) 6.5 - 8.5 g/dL [facility] Albumin 3.9 3.5 - 5.0 g/dL [facility] Alk phos 79 40 - 130 Units/L [facility] ALT 9 7 - 45 Units/L [facility] AST 28 10 - 45 Units/L [facility] Blood 06/09/2024 1:27 PM EVENT DECORATOR 06/09/2024 1:40 PM EVENT DECORATOR us Claude Browning MD LAB BLOOD ORDERABLES Mel badillo Result [facility] [place] [address] * (ABNORMAL) eGFR (05/12/2024 10:26 AM EVENT DECORATOR) Pathologist [facility] eGFR 38(L) >=60 mL/min/1. 73 m2 Comment: [...] reviewed 2021. Blood 05/12/2024 10:2 6 AM EVENT DECORATOR 05/12/2024 10:27 AM EVENT DECORATOR Eren Lund MD LAB BLOOD ORDERABLES Final Re sult [facility] Department [place] [address] * (ABNORMAL) Differential, auto (05/12/2024 10:26 AM EVENT DECORATOR) [facility] Neutrophil abs 2.5 1.5 - 6.5 K/cumm Comment:Testing performed by : [facility], [address] [place] [id number] Imm gran abs 0.0 0.0 - 0.1 K/cumm [facility] Lymphocyte abs 3.0 0.8 - 3.3 K/cumm [facility] Monocyte abs 2.2(H) 0.2 - 0.8 K/cumm [facility] Eosinophil abs 0.2 0.0 - 0.5 K/cumm [facility] Basophil abs 0.0 0.0 - 0.1 K/cumm [facility] Neutrophil pct 31.2 % [facility] Comment: Interpretive Data Percent cell count reference ranges are not reported, since discordance with absolute values may lead to misinterpretation of CBC data. Current Interpretive Data was last revised on 2017. Imm gran pct 0.3 % [facility] Comment: Interpretive Data Percent cell count reference ranges are not reported, since discordance with absolute values may lead to misinterpretation of CBC data. Current Interpretive Data was last revised on 2017. Lymphocyte pct 37.5 % [facility] Comment: Interpretive Data Percent cell count reference ranges are not reported, since discordance with absolute values may lead to misinterpretation of CBC data. Current Interpretive Data was last revised on 2017. Monocyte pct 28.1 % [facility] Comment: Interpretive Data Percent cell count reference ranges are not reported, since discordance with absolute values may lead to misinterpretation of CBC data. Current Interpretive Data was last revised on 2017. Eosinophil pct 2.5 % [facility] Comment: Interpretive Data Percent cell count reference ranges are not reported, since discordance with absolute values may lead to misinterpretation of CBC data. Current Interpretive Data was last revised on 2017. Basophil pct 0.4 % [facility] Comment: Interpretive Data Percent cell count reference ranges are not reported, since discordance with absolute values may lead to misinterpretation of CBC data. Current Interpretive Data was last revised on 2017. Blood 05/12/2024 10:2 6 AM EVENT DECORATOR 05/12/2024 10:27 AM EVENT DECORATOR us Eren Lund MD LAB BLOOD ORDERABLES Final Re sult [facility] Department [place] [address] * (ABNORMAL) Chromogranin A (05/12/2024 10:26 AM EVENT DECORATOR) Chromogranin A 4282(H) <93 ng/mL [facility] Comment: Impaired renal or hepatic function or treatment with proton pump inhibitors may result in artifactual elevations of Chromogranin A. ADDITIONAL INFORMATION The testing method is a homogeneous time-resolved immunofluorescent assay manufactured by [employer] and performed on the VarVeeor Compact Plus. ? Values obtained with different [...] examination and other findings. Test Performed by: [place] [address] Supervisor Paper Coating: Carley Tony Ph.D.; CLIA# [id number] Blood 05/12/2024 10:2 6 AM EVENT DECORATOR 05/12/2024 11:41 AM EVENT DECORATOR us Eren Lund MD LAB BLOOD ORDERABLES Final Re sult [facility] Department [place] [address] [place] * (ABNORMAL) CBC with auto differential (05/12/2024 10:26 AM EVENT DECORATOR) WBC 7.9 3.8 - 9.9 K/cumm Comment:Testing performed by : [facility], [address] [place] [id number] Hgb 11.3(L) 11.9 - 15.5 g/dL [facility] Comment:Testing performed by : [address] [address] Hct 35.5(L) 35.6 - 45.5 % [facility] Comment:Testing performed by : [address] [address] Plt 129(L) 150 - 400 K/cumm [facility] Comment:Testing performed by : [address] [address] MPV 9.0(L) 9.1 - 12.3 fL [facility] RBC 3.57(L) 3.90 - 5.20 M/cumm [facility] MCV 99.4(H) 81.3 - 96.4 fL [facility] MCH 31.7 27.1 - 33.3 pg [facility] MCHC 31.8(L) 32.3 - 35.7 g/dL [facility] RDW CV 15.7(H) 11.1 - 14.9 % [facility] RDW SD 57.3(H) 35.7 - 48.1 fL [facility] NRBC abs 0.00 0.00 - 0.01 K/cumm [facility] Blood 05/12/2024 10:2 6 AM EVENT DECORATOR 05/12/2024 10:27 AM EVENT DECORATOR us Eren Lund MD LAB BLOOD ORDERABLES Final Re sult [facility] Department [place] [address] * (ABNORMAL) Vitamin D 25 hydroxy (05/12/2024 10:26 AM EVENT DECORATOR) Pathologist [facility] Vitamin D 25-OH 18(L) 30 - 80 ng/mL Blood 05/12/2024 10:2 6 AM EVENT DECORATOR 05/12/2024 11:56 AM EVENT DECORATOR Eren Lund MD LAB BLOOD ORDERABLES Final Re sult Performing Organization Address [facility] de Phone Number [facility] [place] [address] * (ABNORMAL) Manual Differential (05/12/2024 10:26 AM EVENT DECORATOR) Differential Auto RBC morphology Present(A ) [facility] Anisocytosis Slight(A) [facility] Elliptocytes 3-7/HPF(A ) [facility] Platelet estimate Decreased (A) [facility] Blood 05/12/2024 10:2 6 AM EVENT DECORATOR 05/12/2024 10:27 AM EVENT DECORATOR us Eren Lund MD LAB BLOOD ORDERABLES Final Re sult Performing Organization Address [facility] de Phone Number [facility] Laboratories [place] [address] * Phosphorus (05/12/2024 10:26 AM EVENT DECORATOR) Phosphorus, pl 2.9 2.3 - 4.5 mg/dL Comment:Testing performed by : [address] [address] Blood 05/12/2024 10:2 6 AM EVENT DECORATOR 05/12/2024 10:27 AM EVENT DECORATOR Eren Lund MD LAB BLOOD ORDERABLES Final Re sult Performing Organization Address [facility] de Phone Number [facility] [place] [address] * Magnesium (05/12/2024 10:26 AM EVENT DECORATOR) Magnesium 1.5 1.4 - 2.5 mg/dL Comment:Testing performed by : [address] [address] Blood 05/12/2024 10:2 6 AM EVENT DECORATOR 05/12/2024 10:27 AM EVENT DECORATOR us Eren Lund MD LAB BLOOD ORDERABLES Final Re sult JASON BLACK [facility] Department [place] [address] * (ABNORMAL) Lipid panel (05/12/2024 10:26 AM EVENT DECORATOR) Cholesterol 128 30 - 199 mg/dL Comment: [...] on 2018. Triglycerides 133 <=149 mg/dL JASON LEAVITT Comment: Interpretive Data Ages < or = [...] revised on 2018. HDL 37(L) >=40 mg/dL [facility] Comment: Interpretive Data Ages < or [...] on 2018. LDL, calculated 67 <=129 mg/dL [facility] Comment: Interpretive Data Ages < or [...] revised on 2024. Non-HDL Cholesterol 91 mg/dL [facility] Comment: Interpretive Data Ages < or = [...] last revised on 2018. Chol/HDL ratio 3 [facility] Blood 05/12/2024 10:2 6 AM EVENT DECORATOR 05/12/2024 11:56 AM EVENT DECORATOR Eren Lund MD LAB BLOOD ORDERABLES Final Re sult [facility] Department [place] [address] * (ABNORMAL) Comprehensive metabolic panel (05/12/2024 10:26 AM EVENT DECORATOR) [facility] Sodium 139 135 - 145 mmol/L Comment:Testing performed by : [facility], [address] [place] [address] Potassium, pl 4.3 3.3 - 4.9 mmol/L [facility] Chloride 109 97 - 110 mmol/L [facility] CO2 22 22 - 32 mmol/L [facility] Anion gap 8 2 - 15 mmol/L [facility] BUN 20 6 - 25 mg/dL [facility] Creatinine 1.44(H) 0.60 - 1.10 mg/dL [facility] Glucose 89 70 - 199 mg/dL [facility] Comment: Interpretive Data Fasting glucose >/= 126 [...] pl 6.1(L) 6.5 - 8.5 g/dL [facility] Albumin 4.0 3.5 - 5.0 g/dL [facility] Alk phos 66 40 - 130 Units/L [facility] ALT 21 7 - 45 Units/L [facility] AST 38 10 - 45 Units/L [facility] Blood 05/12/2024 10:2 6 AM EVENT DECORATOR 05/12/2024 10:27 AM EVENT DECORATOR us Eren Lund MD LAB BLOOD ORDERABLES Final Re sult [facility] Department [place] [address] * CT chest abdomen pelvis with contrast [...] last revised 2018. Creatinine Ur 178.7 mg/dL [facility] Comment: Interpretive Data No reference range established. Current interpretive data was last revised 2018. Protein/creatinin e ratio 141.0 0.0 - 180.0 mg/g CR JASON [facility] Urine 04/14/2024 10:4 0 AM CDT 04/14/2024 11:52 AM CDT us Eren Lund MD LAB URINE ORDERABLES Final Re sult Performing Organization Address [facility] Co de Phone Number JASON BLACK [facility] Department [place] [address] * (ABNORMAL) eGFR (04/14/2024 10:35 AM CDT) [...] ORDERABLES Final Re sult Performing Organization Address City/[facility] Co de Phone Number JASON BLACK [facility] Department [place] [address] * (ABNORMAL) Differential, auto (04/14/2024 10:35 AM CDT) Neutrophil abs 2.7 1.5 - 6.5 K/cumm Comment:Testing performed by : [facility], [address] [place] [id number] Imm gran abs 0.0 0.0 - 0.1 K/cumm [facility] Lymphocyte abs 2.7 0.8 - 3.3 K/cumm [facility] Monocyte abs 1.3(H) 0.2 - 0.8 K/cumm [facility] Eosinophil abs 0.2 0.0 - 0.5 K/cumm [facility] Basophil abs 0.0 0.0 - 0.1 K/cumm [facility] Neutrophil pct 38.7 % [facility] Comment: Interpretive Data Percent cell count reference ranges are not reported, since discordance with absolute values may lead to misinterpretation of CBC data. Current Interpretive Data was last revised on 2017. Imm gran pct 0.3 % [facility] Comment: Interpretive Data Percent cell count reference ranges are not reported, since discordance with absolute values may lead to misinterpretation of CBC data. Current Interpretive Data was last revised on 2017. Lymphocyte pct 39.4 % [facility] Comment: Interpretive Data Percent cell count reference ranges are not reported, since discordance with absolute values may lead to misinterpretation of CBC data. Current Interpretive Data was last revised on 2017. Monocyte pct 18.5 % [facility] Comment: Interpretive Data Percent cell count reference ranges are not reported, since discordance with absolute values may lead to misinterpretation of CBC data. Current Interpretive Data was last revised on 2017. Eosinophil pct 2.8 % [facility] Comment: Interpretive Data Percent cell count reference ranges are not reported, since discordance with absolute values may lead to misinterpretation of CBC data. Current Interpretive Data was last revised on 2017. Basophil pct 0.3 % [facility] Comment: Interpretive Data Percent cell count reference ranges are not reported, since discordance with absolute values may lead to misinterpretation of CBC data. Current Interpretive Data was last revised on 2017. Blood 04/14/2024 10:3 5 AM CDT 04/14/2024 10:35 AM CDT Eren Lund MD LAB BLOOD ORDERABLES Final Re sult JASON BLACK [facility] Department [place] [address] * (ABNORMAL) Chromogranin A (04/14/2024 10:35 AM CDT) Chromogranin A 2929(H) <93 ng/mL [facility] Comment: Impaired renal or hepatic function or treatment with proton pump inhibitors may result in artifactual elevations of Chromogranin A. ADDITIONAL INFORMATION The testing method is a homogeneous time-resolved immunofluorescent assay manufactured by [employer] and performed on the [place] Sunglass Kryptor Compact Plus. ? Values obtained with [...] examination and other findings. Test Performed by: [facility] - [address] [address] Supervisor Paper Coating: Carley Tony Ph.D.; CLIA# [id number] Blood 04/14/2024 10:3 5 AM CDT 04/14/2024 11:52 AM CDT Eren Lund MD LAB BLOOD ORDERABLES Final Re sult Performing Organization Address City/[facility]/ZIP Co de Phone Number [facility] Department [place] [address] [facility] * (ABNORMAL) CBC with auto differential (04/14/2024 10:35 AM CDT) WBC 6.8 3.8 - 9.9 K/cumm Comment:Testing performed by : [address] [address] Hgb 10.8(L) 11.9 - 15.5 g/dL [facility] Comment:Testing performed by : [address] [address] Hct 33.5(L) 35.6 - 45.5 % [facility] Comment:Testing performed by : [address] [address] Plt 117(L) 150 - 400 K/cumm [facility] Comment:Testing performed by : [address] [address] MPV 9.9 9.1 - 12.3 fL [facility] RBC 3.42(L) 3.90 - 5.20 M/cumm [facility] MCV 98.0(H) 81.3 - 96.4 fL [facility] MCH 31.6 27.1 - 33.3 pg [facility] MCHC 32.2(L) 32.3 - 35.7 g/dL [facility] RDW CV 16.4(H) 11.1 - 14.9 % [facility] RDW SD 58.2(H) 35.7 - 48.1 fL [facility] NRBC abs 0.00 0.00 - 0.01 K/cumm [facility] Blood 04/14/2024 10:3 5 AM CDT 04/14/2024 10:35 AM CDT Eren Lund MD LAB BLOOD ORDERABLES Final Re sult Performing Organization Address City/[facility]/ZIP Co de Phone Number [facility] [place] [address] * (ABNORMAL) Vitamin D 25 hydroxy (04/14/2024 10:35 AM CDT) [facility] Vitamin D 25-OH 19(L) 30 - 80 ng/mL Blood 04/14/2024 10:3 5 AM CDT 04/14/2024 11:52 AM CDT Eren Lund MD LAB BLOOD ORDERABLES Final Re sult [facility] [place] [address] * (ABNORMAL) Manual Differential (04/14/2024 10:35 AM CDT) [facility] Differential Auto Neutrophil abs 2.7 1.5 - 6.5 K/cumm [facility] Comment:Testing performed by : [facility], [address] [place] [address] Imm gran abs 0.0 0.0 - 0.1 K/cumm [facility] Lymphocyte abs 2.7 0.8 - 3.3 K/cumm [facility] Monocyte abs 1.3(H) 0.2 - 0.8 K/cumm [facility] Eosinophil abs 0.2 0.0 - 0.5 K/cumm [facility] Basophil abs 0.0 0.0 - 0.1 K/cumm [facility] Neutrophil pct 38.7 % [facility] Comment: Interpretive Data Percent cell count reference ranges are not reported, since discordance with absolute values may lead to misinterpretation of CBC data. Current Interpretive Data was last revised on 2017. Imm gran pct 0.3 % [facility] Comment: Interpretive Data Percent cell count reference ranges are not reported, since discordance with absolute values may lead to misinterpretation of CBC data. Current Interpretive Data was last revised on 2017. Lymphocyte pct 39.4 % [facility] Comment: Interpretive Data Percent cell count reference ranges are not reported, since discordance with absolute values may lead to misinterpretation of CBC data. Current Interpretive Data was last revised on 2017. Monocyte pct 18.5 % [facility] Comment: Interpretive Data Percent cell count reference ranges are not reported, since discordance with absolute values may lead to misinterpretation of CBC data. Current Interpretive Data was last revised on 2017. Eosinophil pct 2.8 % [facility] Comment: Interpretive Data Percent cell count reference ranges are not reported, since discordance with absolute values may lead to misinterpretation of CBC data. Current Interpretive Data was last revised on 2017. Basophil pct 0.3 % [facility] Comment: Interpretive Data Percent cell count reference ranges are not reported, since discordance with absolute values may lead to misinterpretation of CBC data. Current Interpretive Data was last revised on 2017. RBC morphology Present(A ) [facility] Anisocytosis Slight(A) [facility] Elliptocytes 3-7/HPF(A ) [facility] Platelet estimate Decreased (A) [facility] Blood 04/14/2024 10:3 5 AM CDT 04/14/2024 10:35 AM CDT us Eren Lund MD LAB BLOOD ORDERABLES Final Re sult Performing Organization Address City/[facility]/ZIP Co de Phone Number [facility] Department [place] [address] * (ABNORMAL) Phosphorus (04/14/2024 10:35 AM CDT) Phosphorus, pl 1.9(L) 2.3 - 4.5 mg/dL Comment:Testing performed by : [facility], [address] [place] [address] Blood 04/14/2024 10:3 5 AM CDT 04/14/2024 10:35 AM CDT us Eren Lund MD LAB BLOOD ORDERABLES Final Re sult [facility] [place] [address] * (ABNORMAL) Phosphorus (04/14/2024 10:35 AM CDT) Pathologist [facility] Phosphorus, pl 2.0(L) 2.3 - 4.5 mg/dL Comment:Testing performed by : [facility], [address] [place] [address] Blood 04/14/2024 10:3 5 AM CDT 04/14/2024 10:35 AM CDT Eren Lund MD LAB BLOOD ORDERABLES Final Re sult Performing Organization Address [facility] Co de Phone Number [facility] [place] [employer] [place] [address] * Magnesium (04/14/2024 10:35 AM CDT) [facility] Magnesium 1.5 1.4 - 2.5 mg/dL Comment:Testing performed by : [facility], [address] [place] [address] Blood 04/14/2024 10:3 5 AM CDT 04/14/2024 10:35 AM CDT Eren Lund MD LAB BLOOD ORDERABLES Final Re sult Performing Organization Address [facility] de Phone Number [facility] [place] [address] * Lipid panel (04/14/2024 10:35 AM CDT) Pathologist [facility] Cholesterol 125 30 - 199 mg/dL Comment: [...] revised on 2018. Triglycerides 130 <=149 mg/dL [facility] Comment: Interpretive Data Ages < or = [...] revised on 2018. HDL 40 >=40 mg/dL [facility] Comment: Interpretive Data Ages < or = [...] on 2018. LDL, calculated 62 <=129 mg/dL [facility] Comment: Interpretive Data Ages < or = [...] 3. Kai Schwarz et al. CAMILO Cardiol. 2019November 05;5(5):540-548. doi: 10.1001/jamacardio.2020.0013 Current Interpretive Data was last revised on 2024. Non-HDL Cholesterol 85 mg/dL [facility] Comment: Interpretive Data Ages < or = [...] last revised on 2018. Chol/HDL ratio 3 [facility] Blood 04/14/2024 10:3 5 AM CDT 04/14/2024 11:52 AM CDT us Eren Lund MD LAB BLOOD ORDERABLES Final Re sult [facility] Department [place] [address] * (ABNORMAL) Comprehensive metabolic panel (04/14/2024 10:35 AM CDT) Sodium 140 135 - 145 mmol/L Comment:Testing performed by : [facility], [address] [place] [address] Potassium, pl 4.6 3.3 - 4.9 mmol/L [facility] Chloride 111(H) 97 - 110 mmol/L [facility] CO2 24 22 - 32 mmol/L [facility] Anion gap 5 2 - 15 mmol/L [facility] BUN 16 6 - 25 mg/dL [facility] Creatinine 1.46(H) 0.60 - 1.10 mg/dL [facility] Glucose 96 70 - 199 mg/dL [facility] Comment: Interpretive Data Fasting glucose >/= 126 [...] 2022. Calcium 9.5 8.5 - 10.3 mg/dL [facility] Bilirubin, total 0.4 0.1 - 1.2 mg/dL [facility] Protein, pl 5.9(L) 6.5 - 8.5 g/dL [facility] Albumin 3.8 3.5 - 5.0 g/dL [facility] Alk phos 57 40 - 130 Units/L [facility] ALT 18 7 - 45 Units/L [facility] AST 32 10 - 45 Units/L [facility] Blood 04/14/2024 10:3 5 AM CDT 04/14/2024 10:35 AM CDT Eren Lund MD LAB BLOOD ORDERABLES Final Re sult JASON BJ [facility] Department [place] [address] * Screening Mammogram Bilateral W Seng (06/13/2023 2:01 PM EVENT DECORATOR) Anatomical Region Laterality Modality Breast Bilateral Mammography Narrative 06/14/2023 12:40 PM EVENT DECORATOR Mammogram Technique: Bilateral Digital Breast Tomosynthesis, Bilateral C-view 2D Screening mammogram. ??Views obtained: ??bilateral craniocaudal and bilateral mediolateral oblique. ??Computer Aided Detection was performed. Mammogram Findings: The present examination has been compared to prior imaging studies performed at [facility] on 12/21/2019, 01/23/2021 and 04/02/2022. There are [...] compared to prior imaging studies performed at [facility] on 12/21/2019, 01/23/2021 and 04/02/2022. There are scattered areas of fibroglandular density. There is no suspicious abnormality in either breast. Impression: There is no mammographic evidence of malignancy. Annual screening mammography is recommended. OVERALL FINAL ASSESSMENT: BI-RADS CATEGORY 1: Negative. Self Screening Mammogram IMG MAMMO PROCEDURES Fi nal Result * Hepatitis panel, acute (01/02/2021 2:05 PM CDT) Hep A IgM Nonreactive Nonreactive [facility] Comment: Interpretive Data: If Hep A IgM Ab is reported as Equivocal, a new sample should be drawn in two weeks for testing. Current interpretive data was last revised on 19. Hep B core IgM Nonreactive Nonreactive [facility] Comment: Interpretive Data If HepB Core IgM Ab is reported as Equivocal, a new sample should be drawn in two weeks for testing. Current interpretive data was last revised on 19. Hep C Ab Nonreactive Nonreactive [facility] Comment:Antibodies to HCV no t detected. Does NOT exclude the possibility of recent exposure to HCV. HepBsAg Nonreactive Nonreactive [facility] Blood specimen (specimen) 01/02/2021 2:05 PM CDT 01/02/2021 2:37 PM CDT us Eren Lund MD LAB MICROBIOLOGY - GENERAL OR DERABLES Edited Result - Final [facility] [place] [address] * Dexa Axial Skeleton Bone Density 1 or 2 Site (03/10/2020 9:58 AM CDT) Anatomical Region Laterality Modality Body N/A Radiographic Gabbie ging Narrative 03/12/2020 2:39 PM CDT Patient Name: La Chung Date of : 1950 Date of scan: 03/10/2020 Bone mineral density was performed on a [email or web address] Discovery Densitometer. ?? Machine Cross-calibration and Precision [...] Gracia, Lancet 341 : 72-75 (1992) 3) Jonny, Journal Bone and Mineral Research 7(6): 633-8 [...] by the International Society of Clinical Densitometry. [id number] Oksana Rivas NP IMG DXA PROCEDURES Final Result from Last 3 Months or Most Recently Relevant to Health Maintenance Insurance MEDICARE [facility] MEDICARE [facility] MEDICARE [facility]ARE [facility] Advance Directives For more information, please contact: [phone] * Full Code (Latest Code Status on [...] 12:16 PM 09/14/2021 8:10 PM Care Teams Dependency Counselor Relationship Specialty Start Date End Date Julio César Briseno MD PCP - General 10/01/16 Eren Lund MD Referring Physician Medical Oncology 11/25/18 Yohana Bowen MD Radiation Oncologist Radiation Oncology 11/25/18 Alejo Mi MD [address] [place] [address] Referring Physician Nephrology 03/07/23
--- OUTSIDE RECORDS SUMMARY | 2024-06-25 22:04 | XMS_ITS | Encounter Summary ---
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 [address] [place] [address] Phone: tel: fax: [address] [phone] Referral ID Status Reason Start Date Expiration Date Visits Re quested Visits Authorized [id number] Closed 06/11/2024 07/11/2025 1 1 MAL ENGINEER Reason for Visit * Reason Comments Hypertension * Auth/Cert (Routine) Specialty Diagnoses / Procedures Referred By Contac t Referred To Contact Diagnoses History of malignant neuroendocrine tumor ANNE-MARIE (acute kidney injury) (HCC) 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 Procedures NA Referral ID Status Reason Start Date Expiration Date Visits Re quested Visits Authorized [id number] 1 1 Encounter Details Date Type Department Care Team (Latest Contact Info) Description 06/13/2024 10:27 PM THERMAL ENGINEER - 06/20/2024 1:30 PM THERMAL ENGINEER Hospital Encounter [address] [address] Stu Huang MD [address] [place] [address] Eren Cr MD [address] [facility] [address] [place] [address] Armida Guajardo MD [address] [place] [address] Miguel Angel Martinez MD [address] [place] [address] Dana Barajas MD [address] [place] [address] ANNE-MARIE (acute kidney injury) (HCC) (Primary Dx); 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; History of malignant neuroendocrine tumor; 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 More than 4 times per year 06/20/2024 Do you belong to any clubs o r organizations such as yarsani groups, unions, fraternal or athletic groups, or [...] any time in the past [address] [facility], were you homeless or living in a [...] on file Legal Sex Female 2:41 PM THERMAL ENGINEER Gender Identity Not on file Sexual Orientation Straight 02/19/2021 9: 29 AM CDT Occupation Industry Job Start Date Job End Date retired Not on file Not on file Not on file documented as of this encounter Last Filed Vital Signs Vital Sign Reading Time Taken Comments Blood Pressure 139/45 06/20/2024 8:14 AM THERMAL ENGINEER Pulse 95 06/20/2024 8:14 AM THERMAL ENGINEER Temperature 36.4 ??C (97.6 ??F) 06/20/2024 7:25 AM CS T Respiratory Rate 16 06/20/2024 7:25 AM THERMAL ENGINEER Oxygen Saturation 95% 06/20/2024 7:25 AM THERMAL ENGINEER Inhaled Oxygen Concentration - - Weight 72.6 kg (160 lb) 06/19/2024 9:30 PM THERMAL ENGINEER Height 160 cm (5' 3 ) 06/19/2024 7:33 AM THERMAL ENGINEER Body Mass Index 28.34 06/19/2024 7:33 AM THERMAL ENGINEER documented in this encounter Medications at Time of Discharge amLODIPine (NORVASC) 5 mg tablet 09/25/2023 denosumab (Xgeva) 120 mg/1.7 mL (70 mg/mL) injection Inject 1.7 mL (120 mg total) under the skin every 28 (twenty-eight) days DULoxetine DR (CYMBALTA) 30 mg capsule Take 1 capsule (30 mg total) by mouth daily levothyroxine (SYNTHROID) 100 mcg tabletIndications :Hypothyroidism, unspecified type Take 1 tablet (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) by mouth magazine designer before breakfast 90 tablet 3 11/28/2023 lidocaine-priloca ine (lidocaine-priloc cheyenne) creamIndications: Neuro-endocrine carcinoma (HCC) Apply topically as needed for pain Apply a generous amount topically to port site 1 hour prior to lab/treatment, do not rub in, and cover with non absorbant dressing 30 g 3 09/19/2021 loperamide HCl (IMODIUM A-D ORAL)Indications: diarrhea Take 1 tablet by mouth daily as needed (diarrhea) Patient takes 6-8 tablets a day. 11/23/2020 octreotide (SandoSTATIN) 100 mcg/mL injection Inject 1 mL (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) under the skin every 30 (thirty) days Last dose 11/15/22 ondansetron (ZOFRAN) 8 mg tabletIndications :CINV (chemotherapy-ind uced nausea and vomiting) TAKE 1 TABLET EVERY 8 HOURS NEEDED FOR NAUSEA OR VOMITING 90 tablet 11 03/18/2024 ostomy supplies misc Patient has colostomy and needs Cavilon 3M skin barrier film to manage. 20 each 6 09/21/2019 oxyBUTYnin (DITROPAN) 5 mg tablet Take 1 tablet (5 mg total) by mouth 2 (two) times a day oxyBUTYnin (DITROPAN) 5 mg tablet Take 1 tablet (5 mg total) by mouth 3 (three) times a day as needed (flank pain or bladder pain) 20 tablet 06/20/2024 simvastatin (ZOCOR) 20 mg tablet Take 1 tablet (20 mg total) by mouth nightly documented as of this encounter Ordered Prescriptions Prescription Sig Dispense Quantity Refills Last Filled Start Date End Date oxyBUTYnin (DITROPAN) 5 mg tablet Take 1 tablet (5 mg total) by mouth 3 (three) times a day as needed (flank pain or bladder pain) 20 tablet 06/20/2024 5 documented in this encounter Discharge Disposition Disposition Code Departure Means Destination Comment s Discharge to home or self care documented in this encounter Progress Notes * Dana Barajas MD - 06/20/2024 10:54 AM CST Daily Progress Note Division of Hospital Medicine Name: La Chung : 1950 Today's Date: June 20, 2024 Age: 73 y.o. female Admission: 06/13/2024 Bed: [id number] LOS: 6 days Subjective Interval History No acute events overnight. VSS. This morning, denied acute complaints. Medically stable for discharge Objective Scheduled Meds PRN Meds Infusions No current facility-administered medications for this encounter. Vitals Most Recent Vitals: T 36.4 ??C (97.6 ??F), HR 95, BP 139/45, RR 16, SpO2 95 %. 24hr Min/Max: Temp Min: 36.4 ??C (97.6 ??F) Max: 36.8 ??C (98.2 ??F) Pulse Min: 94 Max: 98 BP Min: 139/45 Max: 154/50 Resp Min: 16 Max: 16 SpO2 Min: 94 % Max: 95 % Intake/Output Summary (Last 24 hours) at 06/20/2024 2338 Last data filed at 06/20/2024 0634 Gross per 24 hour Intake 98 ml Output -- Net 98 ml Physical Exam Vital signs and recent nursing notes reviewed. GENERAL: no acute distress. THROAT: oral mucosa moist. No lesions appreciated CV: RRR, no murmurs. No LE edema. PULM: CTAB anteriorely GI: non distended, non-tender, ostomy in place NEURO: Alert and oriented. Moves all extremities. No focal defects appreciated Lines, Drains, Airways Single Lumen Implantable Port 09/14/21 Power Chest Right (Active) Colostomy End RLQ (Active) Labs/Diagnostic Review Na 138 Cl 105 BUN 12 K 3.5 CO2 25 Cr 1.44 Mg 1.4, G AST 433 ALT 164 Alk Phos 85 Ca 8.1 TP - Alb 3.8 Total Bili: 0.6 Direct Bili: <0.2 \ Hgb 10.8 / WBC 11.0 -------- Plt 133 / MCV 97.7 \ INR - (Labs above are the most recent result obtained in the last 24 hours. For additional labs/trends, see Epic.) I have reviewed the laboratory results. Imaging Review IR Embolization Tumor Organ Ischemia or Infarction Result Date: 06/19/2024 Successful diagnostic angiography and chemo-embolization of the right posterior liver using 25 mg doxorubicin and Ethiodol and Gelfoam. PLAN: Interventional radiology will coordinate outpatient follow-up. Dictated by: Dar Willett M.D. The radiology attending physician has personally reviewed this study, and had reviewed and/or edited this written report and agrees with it. Electronically signed by: Mikey Meraz M.D. IR Biopsy Liver Result Date: 06/19/2024 Successful image-guided core biopsy of a segment IVb hepatic lesion. PLAN: Patient will proceed to the interventional radiology area for chemoembolization. Dictated by: Dar Willett M.D.The radiology attending physician has personally reviewed this study, and had reviewed and/or edited this written report and agrees with it. Electronically signed by: Mikey Meraz M.D. Assessment/Plan * ANNE-MARIE (acute kidney injury) (HCC) and Mild right hydroureteronephrosis Assessment & Plan Cr b/l is 1.3-1.5. It is 2 -> 1.7 in the ED. She has had very low PO intake for 24h. She has haddecreased PO intake for a few months (and [...] hematuria post stent which has now resolved Exertional dyspnea Assessment & Plan Reports noting increased exertional dyspnea over last year or so. Nt-probnp elevated on admission - TTE with grade 1 diastolic dysfunction, thickened LV but otherwise normal systolic function EF 66% and normal valvular function Anxiety Assessment & Plan She reports taking duloxetine 30 daily for over a year. Will continue that HTN (hypertension) Assessment & Plan Home amlodipine. Losartan held throughout admission due to ANNE-MARIE and blood pressure reasonably controlled on amlodipine. Can consider restarting outpatient if uptrend noted Vomiting Assessment & Plan Likely related to ANNE-MARIE and R ureteral process. -Improved and tolerating oral intake -PPI IV BID->oral BID for now. -Nausea control. Pain control. Hypothyroidism Assessment & Plan Home synthroid Neuroendocrine tumor Assessment & Plan Of the ileum, w/ mets to the liver, omentum, bone, vaginal cuff - Medon c/s - On octreotide (monthly) and a clinical trial - s/p planned liver TACE 06/19 Right flank pain Assessment & Plan 3 days of R flank/CVA pain. UA not c/f infection. Might be from mild obstruction vs could have lavern stone which has passed. CT abdomen shows new mild hydroureteronephrosis possible secondary to partial obstruction from retroperitoneal adenopathy -Pain control w/ tylenol, lido patch, ok for low dose opioids. -Management as per above -pain improved with stent placement Code status : Prior Diet : No diet orders on file PT/OT Dispo Rec : / Supplementary Attestation My total encounter time on this service date was 40 minutes which was spent performing a [id number] encounter and personally completing the provider-level activities documented in the note. This includes time spent prior to the visit and after the visit in direct care of the patient. This time does not include time spent in any separately reportable services. Dana Barajas MD MAL ENGINEER * Brock Bolanos MD - 06/20/2024 10:34 AM CST Images from the original note were not included. 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 Interval History: No acute events overnight. Feels well, pain controlled. Exam: General: alert & oriented X 3, NAD Skin: warm and well perfused C/V: normal rate and rhythm Pulm: normal respirations, symmetric chest rise, nonlabored breathing Abdomen: soft, NT/ND Temp: [36.3 ??C (97.4 ??F)-36.9 ??C (98.5 ??F)] 36.4 ??C (97.6 ??F) Pulse: [57-124] 95 Resp: [9-18] 16 BP: (75-173)/(32-111) 139/45 Chem/LFT Lab History Latest Ref Rng & Units 06/17/2024 01:25 06/18/2024 01:37 06/19/2024 01:56 06/20/2024 00:59 Labs-Chem/LFT Sodium 135 - 145 mmol/L 142 141 141 138 Creatinine 0.60 - 1.10 mg/dL 1.65 1.62 1.48 1.44 Bilirubin, total 0.1 - 1.2 mg/dL 0.6 0.5 0.4 0.6 AST 10 - 45 Units/L 25 24 21 433 ALT 7 - 45 Units/L 11 11 5 164 Alk phos 40 - 130 Units/L 75 62 61 85 CrCl- Actual Body Weight (Cockcroft-Gault) 34.9 35.5 41.2 38.7 Hematology Lab History Latest Ref Rng & Units 06/17/2024 01:25 06/18/2024 01:37 06/19/2024 01:56 06/20/2024 00:59 Labs - Hematology WBC 3.8 - 9.9 K/cumm 11.3 9.0 9.1 11.0 Total Hb, POC 11.9 - 15.5 g/dL 11.4 10.2 10.1 10.8 Hct 35.6 - 45.5 % 35.1 32.0 31.7 33.7 Plt 150 - 400 K/cumm 156 155 148 133 Neutrophil abs 1.5 - 6.5 K/cumm 2.8 3.2 2.1 5.8 Lymphocytes, abs 0.8 - 3.3 K/cumm 6.9 4.8 2.7 2.3 Lab Results Component Value Date MICROBIOLOGY (.) 01/14/2024 Final Report: Greater than or equal to 100,000 colonies/mL of Klebsiella pneumoniae Output by Drain (mL) 06/18/24 0700 - 06/18/24 1859 06/18/24 1900 - 06/19/24 0659 06/19/24 0700 - 06/19/24 1859 06/19/24 1900 - 06/20/24 0659 06/20/24 0700 - 06/20/24 1034 Patient has no LDAs of requested type attached. Assessment and Plan: 73 y.o. female with history of metastatic ileal neuroendocrine tumor status post liver lesion biopsy and right posterior section chemoembolization 06/19. No acute events overnight and feels well this morning. - Ok to discharge from IR standpoint. - F/u biopsy results MAL ENGINEER * Dana Barajas MD - 06/19/2024 9:00 AM CST Daily Progress Note Division of Hospital Medicine Name: La Chung : 1950 Today's Date: June 19, 2024 Age: 73 y.o. female Admission: 06/13/2024 Bed: [id number] LOS: 5 days Subjective Interval History No acute events overnight. VSS. This morning, seen following her TACE procedure. Nauseous Plan Anti-emetics as needed Monitor overnight post-procedure. DC in am if medically stable Objective Scheduled Meds PRN Meds Infusions amLODIPine, 5 mg, oral, Daily DOXOrubicin (ADRIAMYCIN) 50 mg in ioversoL (OPTIRAY 320) 5 mL intra-arterial, 50 mg, intra-arterial, Once DULoxetine DR, 30 mg, oral, Daily [Held by Provider] enoxaparin, 30 mg, subcutaneous, Daily-2100 levothyroxine, 100 mcg, oral, Daily - 0600 lidocaine, 2 patch, transdermal, Q24H [Held by Provider] losartan, 25 mg, oral, Daily pantoprazole DR, 40 mg, oral, Daily sodium chloride 0.9%, 0.5-20 mL, intra-catheter, Q8H MAUREEN sodium chloride 0.9%, 0.5-20 mL, intra-catheter, Q8H MAUREEN sodium chloride 0.9%, 0.5-20 mL, intra-catheter, Q8H MAUREEN sodium chloride 0.9%, 5-10 mL, intra-catheter, Q12H MAUREEN acetaminophen, 650 mg, oral, Q6H PRN sodium chloride 0.9%, 30 mL, intravenous, PRN sodium chloride 0.9%, 30 mL, intravenous, PRN sodium chloride 0.9%, 30 mL, intravenous, PRN docusate sodium, 100 mg, oral, BID PRN heparin flush (porcine), 5 mL, intra-catheter, PRN HYDROcodone-acetaminophen, 1 tablet, oral, Q4H PRN hydrOXYzine, 25 mg, oral, Nightly PRN lidocaine-prilocaine, , topical, PRN magnesium sulfate, 4 g, intravenous, Q4H PRN magnesium sulfate, 6 g, intravenous, Q4H PRN ondansetron, 4 mg, intravenous, Q6H PRN ondansetron ODT, 4 mg, oral, Q6H PRN OR ondansetron, 4 mg, intravenous, Q6H PRN oxyBUTYnin, 5 mg, oral, TID PRN potassium chloride ER, 40 mEq, oral, Q2H PRN prochlorperazine, 5 mg, intravenous, Q6H PRN sodium chloride 0.9%, 0.5-20 mL, intra-catheter, PRN sodium chloride 0.9%, 0.5-20 mL, intra-catheter, PRN sodium chloride 0.9%, 0.5-20 mL, intra-catheter, PRN sodium chloride 0.9%, 10-20 mL, intra-catheter, PRN Vitals Most Recent Vitals: T 36.5 ??C (97.7 ??F), HR 83, BP 120/86, RR 16, SpO2 96 %. 24hr Min/Max: Temp Min: 36.3 ??C (97.4 ??F) Max: 36.9 ??C (98.5 ??F) Pulse Min: 57 Max: 124 BP Min: 75/44 Max: 173/40 Resp Min: 9 Max: 18 SpO2 Min: 80 % Max: 100 % Intake/Output Summary (Last 24 hours) at 06/19/2024 2149 Last data filed at 06/19/2024 1714 Gross per 24 hour Intake 301.26 ml Output -- Net 301.26 ml Physical Exam Vital signs and recent nursing notes reviewed. GENERAL: no acute distress. THROAT: oral mucosa moist. No lesions appreciated CV: RRR, no murmurs. No LE edema. PULM: CTAB anteriorely GI: non distended, non-tender, ostomy in place NEURO: Alert and oriented. Moves all extremities. No focal defects appreciated Lines, Drains, Airways Single Lumen Implantable Port 09/14/21 Power Chest Right (Active) Colostomy End RLQ (Active) Labs/Diagnostic Review Na 141 Cl 107 BUN 14 K 3.8 CO2 24 Cr 1.48 Mg 1.6, G AST 21 ALT 5 Alk Phos 61 Ca 8.4 TP - Alb 3.5 Total Bili: 0.4 Direct Bili: <0.2 \ Hgb 10.1 / WBC 9.1 -------- Plt 148 / MCV 97.8 \ INR - (Labs above are the most recent result obtained in the last 24 hours. For additional labs/trends, see Epic.) I have reviewed the laboratory results. Imaging Review IR Embolization Tumor Organ Ischemia or Infarction Result Date: 06/19/2024 Successful diagnostic angiography and chemo-embolization of the right posterior liver using 25 mg doxorubicin and Ethiodol and Gelfoam. PLAN: Interventional radiology will coordinate outpatient follow-up. Dictated by: Dar Willett M.D. The radiology attending physician has personally reviewed this study, and had reviewed and/or edited this written report and agrees with it. Electronically signed by: Mikey Meraz M.D. IR Biopsy Liver Result Date: 06/19/2024 Successful image-guided core biopsy of a segment IVb hepatic lesion. PLAN: Patient will proceed to the interventional radiology area for chemoembolization. Dictated by: Dar Willett M.D.The radiology attending physician has personally reviewed this study, and had reviewed and/or edited this written report and agrees with it. Electronically signed by: Mikey Meraz M.D. US Kidney Complete Result Date: 06/18/2024 1. No hydronephrosis. Previously described right-sided hydronephrosis has resolved. 2. Normal renal echogenicity. Dictated by: Greyson Anthony M.D. The radiology attending physician has personally reviewed this study, and had reviewed and/or edited this written report and agrees with it. Electronically signed by: Immanuel Bennett M.D. XR Abdomen Ap 1 Vw Result Date: 06/18/2024 A single view of the abdomen is [...] it. Electronically signed by: Brock Malik M.D. Assessment/Plan * ANNE-MARIE (acute kidney injury) (HCC) and Mild right hydroureteronephrosis Assessment & Plan Cr b/l is 1.3-1.5. It is 2 -> 1.7 in the ED. She has had very low PO intake for 24h. She has haddecreased PO intake for a few months (and [...] location 06/18 -mild hematuria post stent which is expected. Monitoring. hold DVT ppx Exertional dyspnea Assessment & Plan Reports noting increased exertional dyspnea over last year or so. Nt-probnp elevated on admission - TTE with grade 1 diastolic dysfunction, thickened LV but otherwise normal systolic function EF 66% and normal valvular function Anxiety Assessment & Plan She reports taking duloxetine 30 daily for over a year. Will continue that HTN (hypertension) Assessment & Plan Home amlodipine Vomiting Assessment & Plan Likely related to ANNE-MARIE and R ureteral process. -Improved and tolerating oral intake -PPI IV BID->oral BID for now. -Nausea control. Pain control. Hypothyroidism Assessment & Plan Home synthroid Neuroendocrine tumor Assessment & Plan Of the ileum, w/ mets to the liver, omentum, bone, vaginal cuff - Medon c/s - On octreotide (monthly) and a clinical trial - s/p planned liver TACE 06/19 Right flank pain Assessment & Plan 3 days of R flank/CVA pain. UA not c/f infection. Might be from mild obstruction vs could have lavern stone which has passed. CT abdomen shows new mild hydroureteronephrosis possible secondary to partial obstruction from retroperitoneal adenopathy -Pain control w/ tylenol, lido patch, ok for low dose opioids. -Management as per above -pain improved with stent placement Code status : Full Code Diet : Adult Diet Regular PT/OT Dispo Rec : / Supplementary Attestation My total encounter time on this service date was 40 minutes which was spent performing a [id number]-iejo encounter and personally completing the provider-level activities documented in the note. This includes time spent prior to the visit and after the visit in direct care of the patient. This time does not include time spent in any separately reportable services. Dana Barajas MD MAL ENGINEER * Dana Barajas MD - 06/18/2024 10:39 AM CST Daily Progress Note Division of Hospital Medicine Name: La Chung : 1950 Today's Date: June 18, 2024 Age: 73 y.o. female Admission: 06/13/2024 Bed: [id number] LOS: 4 days Subjective Interval History No acute events overnight. VSS. This morning, denied flank pain. Having some hematuria post stent placement (urine with pink tinge but no clots) Creatinine trend gradually improving post stent placement (baseline 1.3-1.5) Plan Monitor creatinine off IV fluids and post right ureteral stent placement 06/16 Repeat renal US and KUB today; Urology following Scheduled for TACE tomorrow; will have it inpatient if not discharged today Objective Scheduled Meds PRN Meds Infusions amLODIPine, 5 mg, oral, Daily DULoxetine DR, 30 mg, oral, Daily [Held by Provider] enoxaparin, 30 mg, subcutaneous, Daily-2100 levothyroxine, 100 mcg, oral, Daily - 0600 lidocaine, 2 patch, transdermal, Q24H [Held by Provider] losartan, 25 mg, oral, Daily pantoprazole DR, 40 mg, oral, Daily sodium chloride 0.9%, 0.5-20 mL, intra-catheter, Q8H MAUREEN acetaminophen, 650 mg, oral, Q6H PRN sodium chloride 0.9%, 30 mL, intravenous, PRN heparin flush (porcine), 5 mL, intra-catheter, PRN HYDROcodone-acetaminophen, 1 tablet, oral, Q4H PRN hydrOXYzine, 25 mg, oral, Nightly PRN lidocaine-prilocaine, , topical, PRN magnesium sulfate, 4 g, intravenous, Q4H PRN magnesium sulfate, 6 g, intravenous, Q4H PRN ondansetron, 4 mg, intravenous, Q6H PRN oxyBUTYnin, 5 mg, oral, TID PRN potassium chloride ER, 40 mEq, oral, Q2H PRN prochlorperazine, 5 mg, intravenous, Q6H PRN sodium chloride 0.9%, 0.5-20 mL, intra-catheter, PRN Vitals Most Recent Vitals: T 36.3 ??C (97.3 ??F), HR 80, BP 136/49, RR 18, SpO2 95 %. 24hr Min/Max: Temp Min: 36.3 ??C (97.3 ??F) Max: 36.8 ??C (98.2 ??F) Pulse Min: 73 Max: 80 BP Min: 136/49 Max: 144/57 Resp Min: 18 Max: 18 SpO2 Min: 94 % Max: 96 % Intake/Output Summary (Last 24 hours) at 06/18/2024 1044 Last data filed at 06/18/2024 0610 Gross per 24 hour Intake 120 ml Output 450 ml Net -330 ml Physical Exam Vital signs and recent nursing notes reviewed. GENERAL: no acute distress. THROAT: oral mucosa moist. No lesions appreciated CV: RRR, no murmurs. No LE edema. PULM: CTAB anteriorely GI: non distended, non-tender, ostomy in place NEURO: Alert and oriented. Moves all extremities. No focal defects appreciated Lines, Drains, Airways Single Lumen Implantable Port 09/14/21 Power Chest Right (Active) Colostomy End RLQ (Active) Labs/Diagnostic Review Na 141 Cl 107 BUN 14 K 3.2 CO2 26 Cr 1.62 Mg 1.6, G AST 24 ALT 11 Alk Phos 62 Ca 8.1 TP - Alb 3.7 Total Bili: 0.5 Direct Bili: <0.2 \ Hgb 10.2 / WBC 9.0 -------- Plt 155 / MCV 97.6 \ INR - (Labs above are the most recent result obtained in the last 24 hours. For additional labs/trends, see Epic.) I have reviewed the laboratory results. Imaging Review No results found. Assessment/Plan * ANNE-MARIE (acute kidney injury) (HCC) and Mild right hydroureteronephrosis Assessment & Plan Cr b/l is 1.3-1.5. It is 2 -> 1.7 in the ED. She has had very low PO intake for 24h. She has haddecreased PO intake for a few months (and [...] right ureteral stent placement 06/16 - creatinine now improving; encourage oral hydration - repeat renal US (to follow up on hydro) and KUB (stent location) 06/18 -mild hematuria post stent which is expected. Monitoring. Will hold DVT ppx Exertional dyspnea Assessment & Plan Reports noting increased exertional dyspnea over last year or so. Nt-probnp elevated on admission - TTE with grade 1 diastolic dysfunction, thickened LV but otherwise normal systolic function EF 66% and normal valvular function Anxiety Assessment & Plan She reports taking duloxetine 30 daily for over a year. Will continue that HTN (hypertension) Assessment & Plan Home amlodipine Vomiting Assessment & Plan Likely related to ANNE-MARIE and R ureteral process. -Improved and tolerating oral intake -PPI IV BID->oral BID for now. -Nausea control. Pain control. 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 Per IR, can be done inpatient if she's still admitted Right flank pain Assessment & Plan 3 days of R flank/CVA pain. UA not c/f infection. Might be from mild obstruction vs could have lavern stone which has passed. CT abdomen shows new mild hydroureteronephrosis possible secondary to partial obstruction from retroperitoneal adenopathy -Pain control w/ tylenol, lido patch, ok for low dose opioids. -Management as per above -pain improved with stent placement Code status : Full Code Diet : Adult Diet Regular PT/OT Dispo Rec : / Supplementary Attestation My total encounter time on this service date was 40 minutes which was spent performing a [id number] encounter and personally completing the provider-level activities documented in the note. This includes time spent prior to the visit and after the visit in direct care of the patient. This time does not include time spent in any separately reportable services. Dana Barajas MD MAL ENGINEER * Dana Barajas MD - 06/17/2024 3:23 PM CST Daily Progress Note Division of Hospital Medicine Name: La Chung : 1950 Today's Date: June 17, 2024 Age: 73 y.o. female Admission: 06/13/2024 Bed: [id number] LOS: 3 days Subjective Interval History Flank pain resolved today. Minimal ostomy output yesterday and being monitored now that oral intakehas improved Creatinine trend improving post stent placement Plan Monitor creatinine off IV fluid and post right ureteral stent placement 06/16 Repeat renal US and KUB tomorrow; Urology following Objective Scheduled Meds PRN Meds Infusions amLODIPine, 5 mg, oral, Daily DULoxetine DR, 30 mg, oral, Daily enoxaparin, 30 mg, subcutaneous, Daily-2100 levothyroxine, 100 mcg, oral, Daily - 0600 lidocaine, 2 patch, transdermal, Q24H [Held by Provider] losartan, 25 mg, oral, Daily pantoprazole DR, 40 mg, oral, Daily sodium chloride 0.9%, 0.5-20 mL, intra-catheter, Q8H MAUREEN acetaminophen, 650 mg, oral, Q6H PRN sodium chloride 0.9%, 30 mL, intravenous, PRN heparin flush (porcine), 5 mL, intra-catheter, PRN HYDROcodone-acetaminophen, 1 tablet, oral, Q4H PRN hydrOXYzine, 25 mg, oral, Nightly PRN lidocaine-prilocaine, , topical, PRN ondansetron, 4 mg, intravenous, Q4H PRN perflutren protein-a (OPTISON) 3 mL in sodium chloride 0.9% 8 mL syringe, 1-8 mL, intravenous, Oncein imaging prochlorperazine, 5 mg, intravenous, BID PRN sodium chloride 0.9%, 0.5-20 mL, intra-catheter, PRN Vitals Most Recent Vitals: T 36.5 ??C (97.7 ??F), HR 79, BP 142/57, RR 18, SpO2 95 %. 24hr Min/Max: Temp Min: 36.2 ??C (97.2 ??F) Max: 37.3 ??C (99.1 ??F) Pulse Min: 68 Max: 101 BP Min: 120/57 Max: 189/59 Resp Min: 8 Max: 22 SpO2 Min: 90 % Max: 100 % Intake/Output Summary (Last 24 hours) at 06/17/2024 1530 Last data filed at 06/17/2024 1250 Gross per 24 hour Intake 880 ml Output 1727 ml Net -847 ml Physical Exam Vital signs and recent nursing notes reviewed. GENERAL: no acute distress. THROAT: oral mucosa moist. No lesions appreciated CV: RRR, no murmurs. No LE edema. PULM: CTAB anteriorely GI: non distended, non-tender, ostomy in place NEURO: Alert and oriented. Moves all extremities. No focal defects appreciated Lines, Drains, Airways Single Lumen Implantable Port 09/14/21 Power Chest Right (Active) Colostomy End RLQ (Active) Labs/Diagnostic Review Na 142 Cl 107 BUN 15 K 3.6 CO2 22 Cr 1.65 Mg 1.8, G AST 25 ALT 11 Alk Phos 75 Ca 8.3 TP - Alb 3.9 Total Bili: 0.6 Direct Bili: <0.2 \ Hgb 11.4 / WBC 11.3 -------- Plt 156 / MCV 97.0 \ INR - (Labs above are the most recent result obtained in the last 24 hours. For additional labs/trends, see Epic.) I have reviewed the laboratory results. Imaging Review No results found. Assessment/Plan * ANNE-MARIE (acute kidney injury) (HCC) and Mild right hydroureteronephrosis Assessment & Plan Cr b/l is 1.3-1.5. It is 2 -> 1.7 in the ED. She has had very low PO intake for 24h. She has haddecreased PO intake for a few months (and [...] right ureteral stent placement 06/16 - creatinine now improving; encourage oral hydration - repeat renal US (to follow up on hydro) and KUB (stent location) 06/18 Exertional dyspnea Assessment & Plan Reports noting increased exertional dyspnea over last year or so. Nt-probnp elevated on admission - check TTE Anxiety Assessment & Plan She reports taking duloxetine 30 daily for over a year. Will continue that HTN (hypertension) Assessment & Plan Home amlodipine Vomiting Assessment & Plan Likely related to ANNE-MARIE and R ureteral process. -Improved and tolerating oral intake -PPI IV BID->oral BID for now. -Nausea control. Pain control. 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 Per IR, can be done inpatient if she's still admitted Right flank pain Assessment & Plan 3 days of R flank/CVA pain. UA not c/f infection. Might be from mild obstruction vs could have lavern stone which has passed. CT abdomen shows new mild hydroureteronephrosis possible secondary to partial obstruction from retroperitoneal adenopathy -Pain control w/ tylenol, lido patch, ok for low dose opioids. -Management as per above -pain improved with stent placement Code status : Full Code Diet : Adult Diet Regular PT/OT Dispo Rec : / Supplementary Attestation My total encounter time on this service date was 45 minutes which was spent performing a [id number] encounter and personally completing the provider-level activities documented in the note. This includes time spent prior to the visit and after the visit in direct care of the patient. This time does not include time spent in any separately reportable services. Dana Barajas MD MAL ENGINEER MAL ENGINEER MAL ENGINEER * Dana Barajas MD - 06/16/2024 10:00 AM CST Daily Progress Note Division of Hospital Medicine Name: La Chung : 1950 Today's Date: June 16, 2024 Age: 73 y.o. female Admission: 06/13/2024 Bed: OR /- LOS: 2 days Subjective Interval History Reports ongoing right flank discomfort. No pain or burning on passing urine or blood in urine. No change in ostomy output. Plan Given lack of improvement/up trending creatinine with fluids, urology planning on proceeding with right ureteral stent placement today Will attempt to touch base with IR regarding her scheduled TACE procedure on Saturday Objective Scheduled Meds PRN Meds Infusions [Transfer Hold] amLODIPine, 5 mg, oral, Daily [Transfer Hold] DULoxetine DR, 30 mg, oral, Daily [Transfer Hold] enoxaparin, 30 mg, subcutaneous, Daily-2100 [Transfer Hold] levothyroxine, 100 mcg, oral, Daily - 0600 [Transfer Hold] lidocaine, 2 patch, transdermal, Q24H [Held by Provider] losartan, 25 mg, oral, Daily [Transfer Hold] pantoprazole, 40 mg, intravenous, BID [Transfer Hold] sodium chloride 0.9%, 0.5-20 mL, intra-catheter, Q8H MAUREEN [Transfer Hold] acetaminophen, 650 mg, oral, Q6H PRN [Transfer Hold] sodium chloride 0.9%, 30 mL, intravenous, PRN fentaNYL, 50 mcg, intravenous, Once PRN haloperidol, 1 mg, intravenous, Once PRN [Transfer Hold] heparin flush (porcine), 5 mL, intra-catheter, PRN hydrALAZINE, 5 mg, intravenous, Q5 Min PRN [Transfer Hold] HYDROcodone-acetaminophen, 1 tablet, oral, Q4H PRN HYDROmorphone, 0.2 mg, intravenous, Q10 Min PRN HYDROmorphone, 0.4 mg, intravenous, Q10 Min PRN [Transfer Hold] hydrOXYzine, 25 mg, oral, Nightly PRN [Transfer Hold] lidocaine-prilocaine, , topical, PRN naloxone, 0.04-0.4 mg, intravenous, Once PRN [Transfer Hold] ondansetron, 4 mg, intravenous, Q4H PRN oxyCODONE, 5 mg, oral, Once PRN [Transfer Hold] prochlorperazine, 5 mg, intravenous, BID PRN prochlorperazine, 5 mg, intravenous, Once PRN [Transfer Hold] sodium chloride 0.9%, 0.5-20 mL, intra-catheter, PRN sodium chloride 0.9%, 50 mL/hr, Last Rate: Stopped (06/16/24 1601) sodium chloride 0.9%, 125 mL/hr, Last Rate: 125 mL/hr (06/16/24 1558) Vitals Most Recent Vitals: T 37.2 ??C (99 ??F), HR 82, BP 158/56, RR 15, SpO2 95 %. 24hr Min/Max: Temp Min: 36.4 ??C (97.5 ??F) Max: 37.6 ??C (99.7 ??F) Pulse Min: 68 Max: 82 BP Min: 138/57 Max: 189/59 Resp Min: 8 Max: 24 SpO2 Min: 92 % Max: 100 % Intake/Output Summary (Last 24 hours) at 06/16/2024 1703 Last data filed at 06/16/2024 1537 Gross per 24 hour Intake 2004 ml Output 2 ml Net 2002 ml Physical Exam Vital signs and recent nursing notes reviewed. GENERAL: no acute distress. THROAT: oral mucosa moist. No lesions appreciated CV: RRR, no murmurs. No LE edema. PULM: CTAB anteriorely GI: non distended, mildly tender on deep palpation right flank, ostomy in place NEURO: Alert and oriented. Moves all extremities. No focal defects appreciated Lines, Drains, Airways Single Lumen Implantable Port 09/14/21 Power Chest Right (Active) Colostomy End RLQ (Active) Labs/Diagnostic Review Na 141 Cl 108 BUN 17 K 4.0 CO2 22 Cr 1.97 Mg 1.9, G AST 26 ALT 9 Alk Phos 71 Ca 8.7 TP - Alb 4.1 Total Bili: 0.8 Direct Bili: 0.2 \ Hgb 11.0 / WBC 11.2 -------- Plt 149 / MCV 99.2 \ INR - (Labs above are the most recent result obtained in the last 24 hours. For additional labs/trends, see Epic.) I have reviewed the laboratory results. Imaging Review No results found. Assessment/Plan * ANNE-MARIE (acute kidney injury) (HCC) and Mild right hydroureteronephrosis Assessment & Plan Cr b/l is 1.3-1.5. It is 2 -> 1.7 in the ED. She has had very low PO intake for 24h. She has haddecreased PO intake for a few months (and receives IVF infusion outpatient). CT a/p shows mild R hydroureteronephrosis, which as per report could be from a partial obstruction from lymphadenopathy. Ddx: pre-renal vs obstructive iso right hydro. UA not c/f infection -s/p 1L bolus in the ED followed by 100 mL/h -Urology c/s; Given lack of improvement/up trending creatinine despite fluids, planning right ureteral stent placement 06/16 Anxiety Assessment & Plan She reports taking duloxetine 30 daily for over a year. Will continue that HTN (hypertension) Assessment & Plan Home amlodipine Vomiting Assessment & Plan Onset 24h prior to this note. It is triggered by food, and happens more or less together w/ PO intake. No particular exacerbation of pain w/ it. It is non bloody, but as per patient (not witnessed), it is bilious (yellowish). No diarrhea (ostomy output is as usual or slightly firmer than usual).CT a/p w/ contrast in the ED with NO report of obstruction and no colitis. It does show mildly larger mets to the liver. Lipase normal. Etiology: unclear. No obstruction, No colitis. Might be a gastroenteritis or other irritation. Might also be related to the R ureteral process. Improving -PPI IV BID for now. Nausea control. Pain control. 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 Asking if it can be done while inpatient. Will check with IR. Right flank pain Assessment & Plan 3 days of R flank/CVA pain. UA not c/f infection. Might be from mild obstruction vs could have lavern stone which has passed. CT abdomen shows new mild hydroureteronephrosis possible secondary to partial obstruction from retroperitoneal adenopathy -Pain control w/ tylenol, lido patch, ok for low dose opioids. -Management as per above Code status : Full Code Diet : NPO Diet Sips with meds PT/OT Dispo Rec : / Supplementary Attestation My total encounter time on this service date was 45 minutes which was spent performing a [id number] encounter and personally completing the provider-level activities documented in the note. This includes time spent prior to the visit and after the visit in direct care of the patient. This time does not include time spent in any separately reportable services. Dana Barajas MD MAL ENGINEER * Pamela Bejarano, MEGHAN - 06/15/2024 4:09 PM CST NUTRITION ASSESSMENT Nutrition Status: Patient at risk for malnutrition, but does not meet AAIM (ASPEN) criteria for malnutrition. REASON FOR ASSESSMENT: Screened at Nutrition Risk - At Risk MST Score Encounter Date: 06/15/24 4:11 PM Admission Date: 06/13/2024 LOS: 1 days HPI: Patient is a 73 y.o. female Hx HTN, hypothyroidism, neuroendocrine tumor w/ mets to the liver, omentum, vaginal cuff, here w/ N/V and mild R hydronephrosis. 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, omentum, bone, and vaginal cuff, T4N0 s/p colectomy/BSO/partial omentectomy 09/2015 HL (hearing loss) 2012 Hypercholesteremia Hypertension Motion sickness Obesity PONV (postoperative nausea and vomiting) controlled with IV medication Status post chemotherapy 09/2019 immunotherapy Status post radiation therapy 09/2019 Past Surgical History: Procedure Laterality Date APPENDECTOMY 1992 BILATERAL SALPINGOOPHORECTOMY 10/03/2015 BIOPSY 10/03/2015 Peritoneal COLONOSCOPY 07/2015 CONTRAST INJECTION EVALUATION CENTRAL VENOUS ACCESS DEVICE N/A 06/12/2022 CONTRAST INJECTION EVALUATION CENTRAL VENOUS ACCESS DEVICE N/A 09/04/2022 EXAMINATION UNDER ANESTHESIA 05/30/2020 Examination under anesthesia and fulguration of pseudo epithelial hyperplasia EXPLORATORY LAPAROTOMY 04/13/2019 Exploratory laparotomy with creation of divided loop colostomy GALLBLADDER SURGERY unknown date IR PICC LINE PLACEMENT > 5 YEARS N/A 12/23/2018 IR PICC LINE PLACEMENT > 5 YEARS N/A 02/17/2019 IR PICC LINE PLACEMENT > 5 YEARS N/A 06/09/2019 IR PICC LINE PLACEMENT > 5 YEARS N/A 08/04/2019 OMENTECTOMY 10/03/2015 Partial PORT PLACEMENT CHEST >5 YEARS N/A 09/14/2021 RIGHT COLECTOMY 10/03/2015 Right colectomy STOMA REVISION 07/2019 Fulguration of parastomal hyperplasia TONSILLECTOMY 1955 Tonsillectomy - (Added by TW Conv) TOTAL ABDOMINAL HYSTERECTOMY 1991 appendix removed during this procedure TOTAL KNEE ARTHROPLASTY Left 2015 Social History Tobacco Use Smoking status: Never Smokeless tobacco: Never Substance and Sexual Activity Drug use: No Sexual activity: Defer Partners: Male control/protection: Post-menopausal Alcohol Use: Unknown (05/26/2024) AUDIT-C Frequency of Alcohol Consumption: Not on file Average Number of Drinks: Patient does not drink Frequency of Binge Drinking: Not on file MEDICATION/LAB REVIEW: Scheduled Meds: amLODIPine, 5 mg, oral, Daily DULoxetine DR, 30 mg, oral, Daily enoxaparin, 30 mg, subcutaneous, Daily-2100 levothyroxine, 100 mcg, oral, Daily - 0600 lidocaine, 2 patch, transdermal, Q24H [Held by Provider] losartan, 25 mg, oral, Daily pantoprazole, 40 mg, intravenous, BID sodium chloride 0.9%, 0.5-20 mL, intra-catheter, Q8H MAUREEN Continuous Infusions: sodium chloride 0.9%, 100 mL/hr, Last Rate: 100 mL/hr (06/15/24 1525) PRN Meds: acetaminophen sodium chloride 0.9% heparin flush (porcine) HYDROcodone-acetaminophen hydrOXYzine lidocaine-prilocaine ondansetron prochlorperazine sodium chloride 0.9% Recent Labs Lab Units 06/15/24 0126 06/14/24 0023 06/13/24 1630 SODIUM mmol/L 139 < > 139 POTASSIUM PLASMA mmol/L 4.1 < > 4.4 CHLORIDE mmol/L 107 < > 107 CO2 mmol/L 22 < > 22 BUN SERUM mg/dL 18 < > 18 CREATININE mg/dL 1.94* < > 2.03* [id number] mL/min/1.73 m2 27* < > 25* CALCIUM mg/dL 8.9 < > 9.8 ALBUMIN g/dL 4.0 < > 4.2 PHOSPHORUS PLASMA mg/dL -- -- 2.7 MAGNESIUM mg/dL 1.8 -- 1.9 < > = values in this interval not displayed. Recent Labs Lab Units 06/15/24 0126 06/14/24 0023 06/13/24 1630 06/09/24 1327 GLUCOSE mg/dL 127 141 121 90 ALT Date Value Ref Range Status 06/15/2024 11 7 - 45 Units/L Final AST Date Value Ref Range Status 06/15/2024 25 10 - 45 Units/L Final Alk phos Date Value Ref Range Status 06/15/2024 71 40 - 130 Units/L Final Lab Results Component Value Date HDL 39 (L) 06/09/2024 LDLCALC 68 06/09/2024 CHOL 135 06/09/2024 TRIG 160 (H) 06/09/2024 NURSING ASSESSMENT: Last BM Date: 06/15/24 Bowel Sounds (All Quadrants): Present Emesis Assessment Emesis Color/Appearance: Bilious, Green [place] Scale Score: 20 Skin Integrity: Bruising Vital Signs BP: 159/53 Temp: 36.6 ??C (97.9 ??F) Pulse: 75 Resp: 18 SpO2: 97 % No intake or output data in the 24 hours ending 06/15/24 1611 Adult Malnutrition Scoring Tool (MST) What diet do you follow at home?: Reg Have You Recently Lost Weight Without Trying?: Unsure Have you been eating poorly because of a decreased appetite?: Yes Malnutrition Screening Tool (MST) Score: 3 Anthropometrics Weight: 78.5 kg (173 lb) Admission Weight : 78.5 kg Weight Change: 0.00 kg (0.00 lbs) IBW/kg (Calculated) : 52.2 kg Height: 160 cm (5' 3 ) Weight in (lb) to have BMI = 25: 140.8 BMI (Calculated): 30.7 Wt Readings from Last 10 Encounters: 06/13/24 78.5 kg (173 lb) 06/09/24 78.5 kg (173 lb) 05/26/24 76.2 kg (168 lb) 05/21/24 74.8 kg (165 lb) 05/12/24 75.3 kg (165 lb 14.4 oz) 04/14/24 75.3 kg (166 lb) 03/17/24 74.5 kg (164 lb 3.2 oz) 03/05/24 72.4 kg (159 lb 9.6 oz) 02/18/24 76.1 kg (167 lb 12.8 oz) 01/24/24 74.7 kg (164 lb 9.6 oz) ESTIMATED NEEDS: Total Kcal/kg Estimated Needs : 1827 Kcal/k. Type of Weight Used for Estimated Kcals: [place] Total Protein Estimated Needs (gm): 78.3 Protein Needs Based on g/k.5 Type of Weight Used for Estimated Protein : [place] Total Fluid Estimated Needs: 1827 Fluid Needs Based on : 1 ml/kcal Type of Weight Used for Estimated Fluid Needs: [place] Dietary Orders (From admission, onward) Start Ordered 06/15/24 1606 Oral Nutrition Supplements ([facility]) Select Supplement: Ensure PLUS High Protein - Any Flavor; Quantity (# of cans): 1 can All Meals Question Answer Comment ([facility]) Select Supplement: Ensure PLUS High Protein - Any Flavor Quantity (# of cans): 1 can 06/15/24 1605 06/15/24 1224 Adult Diet Regular Diet effective now Question: ([facility]) Diet type Answer: Regular 06/15/24 1223 Allergies: Reviewed. IMPRESSION: Met with patient at bedside. She reported poor PO intake for the past couple of weeks. She thinks she has lost some weight over the past month. Reports UBW of 177#. Current epic weight is 173#. No significant weight loss noted per [facility] records. She is interested in trying Ensure to see if she likesit. Labs/Meds: reviewed and noted. LITTLE (ASPEN) MALNUTRITION ASSESSMENT: Date of completion: 06/15 ASPEN/AND Malnutrition Screening: Patient does not meet malnutrition criteria NUTRITION FOCUSED PHYSICAL EXAM: Completed, no signs of wasting noted. NUTRITION DIAGNOSIS: Nutrition Diagnosis 1: Inadequate oral intake Related to: Loss of appetite Evidenced by: Patient interview, Weight loss INTERVENTION(S): Summary: Initial assessment, Meals and snacks, Medical food supplement CPM of regular diet Encourage good PO intake Ensure Plus High Protein TID GOAL(S): Adequate nutrition to meet estimated needs by next assessment MONITORING/EVALUATION: Appetite, Supplement tolerance, PO intake Pamela Bejarano MS, RD, CNSC, LD Cell MAL ENGINEER * Miguel Angel Martinez MD - 06/15/2024 7:25 AM CST Daily Progress Note Division of Hospital Medicine Name: La Chung : 1950 Today's Date: June 15, 2024 Age: 73 y.o. female Admission: 06/13/2024 Bed: [id number] LOS: 1 days Subjective Interval History Reports having some nausea earlier but no vomiting. No fever or chills. Had some a right flank painon Saturday but this has improved now. Also no pain or burning on passing urine or blood in urine. No change in ostomy output. Other review of system negative. Objective Scheduled Meds PRN Meds Infusions alteplase, 1 mg, intra-catheter, Once amLODIPine, 5 mg, oral, Daily DULoxetine DR, 30 mg, oral, Daily enoxaparin, 30 mg, subcutaneous, Daily-2100 levothyroxine, 100 mcg, oral, Daily - 0600 lidocaine, 2 patch, transdermal, Q24H [Held by Provider] losartan, 25 mg, oral, Daily pantoprazole, 40 mg, intravenous, BID sodium chloride 0.9%, 0.5-20 mL, intra-catheter, Q8H MAUREEN acetaminophen, 650 mg, oral, Q6H PRN sodium chloride 0.9%, 30 mL, intravenous, PRN heparin flush (porcine), 5 mL, intra-catheter, PRN HYDROcodone-acetaminophen, 1 tablet, oral, Q4H PRN hydrOXYzine, 25 mg, oral, Nightly PRN lidocaine-prilocaine, , topical, PRN ondansetron, 4 mg, intravenous, Q4H PRN prochlorperazine, 5 mg, intravenous, BID PRN sodium chloride 0.9%, 0.5-20 mL, intra-catheter, PRN sodium chloride 0.9%, 100 mL/hr Vitals Most Recent Vitals: T 36.7 ??C (98 ??F), HR 82, BP 144/54, RR 19, SpO2 96 %. 24hr Min/Max: Temp Min: 36.4 ??C (97.5 ??F) Max: 36.7 ??C (98 ??F) Pulse Min: 62 Max: 82 BP Min: 144/54 Max: 176/51 Resp Min: 16 Max: 19 SpO2 Min: 94 % Max: 98 % No intake or output data in the 24 hours ending 06/15/24 1338 Physical Exam Vital signs and recent nursing notes reviewed. GENERAL: no acute distress. THROAT: oral mucosa moist. No lesions appreciated CV: RRR, no murmurs. No LE edema. PULM: CTAB anteriorely GI: BS+, non distended, mildly tender on deep palpation right flank, ostomy in place NEURO: Alert and oriented. Moves all extremities. No focal defects appreciated Lines, Drains, Airways Single Lumen Implantable Port 09/14/21 Power Chest Left (Active) Colostomy End RLQ (Active) Labs/Diagnostic Review Na 139 Cl 107 BUN 18 K 4.1 CO2 22 Cr 1.94 Mg 1.8, G AST 25 ALT 11 Alk Phos 71 Ca 8.9 TP - Alb 4.0 Total Bili: 0.6 Direct Bili: <0.2 \ Hgb 10.9 / WBC 10.5 -------- Plt 149 / MCV 98.3 \ INR - (Labs above are the most recent result obtained in the last 24 hours. For additional labs/trends, see Epic.) I have reviewed the laboratory results. Imaging Review CT Abdomen Pelvis W Contrast Result Date: 06/14/2024 1. Slight increase in size of multiple [...] it. Electronically signed by: Becky Golden M.D. Assessment/Plan * ANNE-MARIE (acute kidney injury) (HCC) and Mild right hydroureteronephrosis Assessment & Plan Cr b/l is 1.3-1.5. It is 2 -> 1.7 in the ED. She has had very low PO intake for 24h. She has haddecreased PO intake for a few months (and receives IVF infusion outpatient). CT a/p shows mild R hydroureteronephrosis, which as per report could be from a partial obstruction from lymphadenopathy.Ddx: 1) Seems pre-renal based on history, rapid improvement w/ IVF, the hydro is noted to be mild and u nilateral. 2) of course, obstructive etiology is on the Ddx. 3) presentation also consistent w/ transient R stone (passed) -UA not c/f infection -s/p 1L bolus in the ED followed by 100 mL/h -Urology c/s (to weigh in on significance of the ureteronephrosis +/- stent). Recommending aggressive hydration and oral intake and monitoring kidney function over time. If condition does not improveor worsens then OR at that time. Vomiting Assessment & Plan Onset 24h prior to this note. It is triggered by food, and happens more or less together w/ PO intake. No particular exacerbation of pain w/ it. It is non bloody, but as per patient (not witnessed), it is bilious (yellowish). No diarrhea (ostomy output is as usual or slightly firmer than usual).CT a/p w/ contrast in the ED with NO report of obstruction and no colitis. It does show mildly larger mets to the liver. Lipase normal. Etiology: unclear. No obstruction, No colitis. Might be a gastroenteritis or other irritation. Might also be related to the R ureteral process. Improving -PPI IV BID for now. Nausea control. Pain control. Right flank pain Assessment & Plan 3 days of R flank/CVA pain. UA not c/f infection. Might be from mild obstruction vs could have lavern stone which has passed. CT abdomen shows new mild hydroureteronephrosis possible secondary to partial obstruction from retroperitoneal adenopathy -Pain control w/ tylenol, lido patch, ok for low dose opioids. -Management as per above Anxiety Assessment & Plan She reports taking duloxetine 30 daily for over a year. 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 Asking if it can be done while inpatient. Will check with IR. Code status : Full Code Diet : Adult Diet Regular PT/OT Dispo Rec : / Supplementary Attestation My total encounter time on this service date was 60 minutes which was spent performing a [id number] encounter and personally completing the provider-level activities documented in the note. This includes time spent prior to the visit and after the visit in direct care of the patient. This time does not include time spent in any separately reportable services. Miguel Angel Martinez MD MAL ENGINEER * Yanet Howard - 06/14/2024 8:00 PM CST Pt admitted to [id number]. 2 RN skin check completed. Admitting MD notified of pt arrival and elevated BP 176/51. Pt oriented to room and unit. Ostomy bag changed with RN assistance. Fluids verified. MAL ENGINEER documented in this encounter H&P Notes * Xochitl Knowles MD - 06/16/2024 1:10 PM CST I have reviewed the H&P, examined the patient, and endorse the findings as written. Plan of Care : Based on the above findings, I consider La Chung to be an acceptable risk for :Procedure(s): CYSTOSCOPY PLACEMENT STENT - URETERAL PYELOGRAM - RETROGRADE Cosigned by Mela Dejesus MD at 06/16/2024 1:57 PM THERMAL ENGINEER MAL ENGINEER MAL ENGINEER Source Note - File, Susana Palumbo NP - 06/15/2024 8:28 AM THERMAL ENGINEER Images from the original note were not included. Urology Consult Note Subjective Chief Complaint:R hydroureteronephrosis Requesting provider: Juan History of Present Illness: La Chung is a 73 y.o. female with PMH of hypothyroidism, neuroendocrine tumor s/p multiple rounds of treatment w/ mets to the liver, omentum, vaginal cuff, admitted for N/V with finding of ANNE-MARIE and R hydroureteronephrosis for which urology consulted. Patient presented with several day complaint of N/V, R flank pain. Found to have an ANNE-MARIE of 2(baseline 1.3-1.5) with CT scan showing enlarged mets to liver and enlarged retroperitoneal lymphadenopathy. R kidney with extra renal pelvis, proximal ureter appears to be tethered to retroperitoneal lymph nodes with mild R hydroureteronephrosis. No fever, dysuria, urgency, frequency, suprapubic pain, + flank pain but improved. No gross hematuria. 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, omentum, bone, and vaginal cuff, T4N0 s/p colectomy/BSO/partial omentectomy 09/2015 HL (hearing loss) 2012 Hypercholesteremia Hypertension Motion sickness Obesity PONV (postoperative nausea and vomiting) controlled with IV medication Status post chemotherapy 09/2019 immunotherapy Status post radiation therapy 09/2019 The patient's past surgical history is notable for: Past Surgical History: Procedure Laterality Date APPENDECTOMY 1992 BILATERAL SALPINGOOPHORECTOMY 10/03/2015 BIOPSY 10/03/2015 Peritoneal COLONOSCOPY 07/2015 CONTRAST INJECTION EVALUATION CENTRAL VENOUS ACCESS DEVICE N/A 06/12/2022 CONTRAST INJECTION EVALUATION CENTRAL VENOUS ACCESS DEVICE N/A 09/04/2022 EXAMINATION UNDER ANESTHESIA 05/30/2020 Examination under anesthesia and fulguration of pseudo epithelial hyperplasia EXPLORATORY LAPAROTOMY 04/13/2019 Exploratory laparotomy with creation of divided loop colostomy GALLBLADDER SURGERY unknown date IR PICC LINE PLACEMENT > 5 YEARS N/A 12/23/2018 IR PICC LINE PLACEMENT > 5 YEARS N/A 02/17/2019 IR PICC LINE PLACEMENT > 5 YEARS N/A 06/09/2019 IR PICC LINE PLACEMENT > 5 YEARS N/A 08/04/2019 OMENTECTOMY 10/03/2015 Partial PORT PLACEMENT CHEST >5 YEARS N/A 09/14/2021 RIGHT COLECTOMY 10/03/2015 Right colectomy STOMA REVISION 07/2019 Fulguration of parastomal hyperplasia TONSILLECTOMY 1955 Tonsillectomy - (Added by TW Conv) TOTAL ABDOMINAL HYSTERECTOMY 1991 appendix removed during this procedure TOTAL KNEE ARTHROPLASTY Left 2015 Review of systems negative other than what is stated in the HPI. Objective In/Outs: I/O last 3 completed shifts: In: 999 [IV Piggyback:999] Out: - No intake/output data recorded. Physical Exam: Vitals: 06/14/24 1805 06/14/24201406/15/24 0120 06/15/24 0800 BP: (!) 176/51 155/74 152/58 144/54 BP Location: Right arm Left arm Right arm Patient Position: HOB 30 degrees Lying Pulse: 65 74 71 82 Resp: 17 16 16 19 Temp: 36.4 ??C (97.5 ??F) 36.6 ??C (97.9 ??F) 36.6 ??C (97.8 ??F) 36.7 ??C (98 ??F) TempSrc: Oral Oral Oral Oral SpO2: 97% 98% 94% 96% Weight: Height: General: In no acute distress Pulmonary: Non-labored breathing Cardiovascular: Well perfused Abdomen: soft, non tender, Non distended : voiding spontaneously Neuro: Alert and oriented Psych: Appropriate and cooperative Labs/Imaging: Chem/LFT Lab History Latest Ref Rng & Units 06/09/2024 13:27 06/13/2024 16:30 06/14/2024 00:23 06/15/2024 01:26 Labs-Chem/LFT Sodium 135 - 145 mmol/L 140 139 139 139 Creatinine 0.60 - 1.10 mg/dL 1.73 2.03 1.79 1.94 Bilirubin, total 0.1 - 1.2 mg/dL 0.6 0.6 0.4 0.6 AST 10 - 45 Units/L 28 32 30 25 ALT 7 - 45 Units/L 9 14 8 11 Alk phos 40 - 130 Units/L 79 85 79 71 CrCl- Actual Body Weight (Cockcroft-Gault) 34.8 29.7 33.6 31 Hematology Lab History Latest Ref Rng & Units 05/12/2024 10:26 06/13/2024 06/14/2024 00:23 06/15/2024 01:26 Labs - Hematology WBC 3.8 - 9.9 K/cumm 7.9 10.1 9.8 10.5 Total Hb, POC 11.9 - 15.5 g/dL 11.3 12.2 11.6 10.9 Hct 35.6 - 45.5 % 35.5 37.4 36.6 34.1 Plt 150 - 400 K/cumm 129 142 145 149 Neutrophil abs 1.5 - 6.5 K/cumm 2.5 5.1 3.8 4.5 Lymphocytes, abs 0.8 - 3.3 K/cumm 3.0 4.4 2.4 5.8 Details More values are hidden. Newest values shown. Go to activity for more data. The following images were personally reviewed by me. CT Abdomen Pelvis W Contrast Narrative: EXAMINATION: Computed tomography of the abdomen and [...] and its branches. No suspicious osseous lesions. Impression: 1. Slight increase in size of multiple [...] it. Electronically signed by: Becky Golden M.D. Wes Chung is a 73 y.o. female with PMH of hypothyroidism, neuroendocrine tumor s/p multiple rounds of treatment w/ mets to the liver, omentum, vaginal cuff, admitted for N/V with finding of ANNE-MARIE and R hydroureteronephrosis. Difficult to discern looking at imaging if R ureter tethered at lymph nodes is causing hydroureteronephrosis as can trace ureter down to level of bladder and appears decompressed or if extra renal pelvis is causing appearance of hydroureteronephrosis. Patient does have ANNE-MARIE but this could be due to her poor oral intake is setting of active cancer treatment. After discussing with urologic attending, do not feel patient needs acute urologic intervention and would recommend continuing aggressive hydration, encouraging oral intake. Continue monitoring creatinine as well as assessing for development of fevers, worsening flank pain. Should she not improve or condition worsens, can be taken to OR for ureteral stent placement. This was discussed in detail with patient, daughter and . Plan -Continue to monitor creatinine -Aggressive hydration (Oral and/or IV) -Monitor fevers, flank pain -Urology will follow Thank you for allowing us to participate in the care of this patient. For any questions or concerns, please page Urology through the file machine operator. Susana Tate NP 06/15/2024 Cosigned by Pa Teran MD at 06/15/2024 1:48 PM THERMAL ENGINEER MAL ENGINEER MAL ENGINEER * Nasir Lyons MD - 06/14/2024 3:26 PM CST Oncology Hospitalist History & Physical BMT Day: Chief Complaint: Patient is a 73 y.o. female with chief complaint of nausea/vomiting. Subjective HPI: 73yoW, Hx HTN, hypothyroidism, neuroendocrine tumor w/ mets to the liver, omentum, vaginal cuff, here w/ N/V and mild R hydronephrosis She has been having R flank pain for a few days and vomiting w/ any PO intake for 24h. For the vomiting: it happens after any food (solid or liquid) intake. It comes back up soon after eating. There is no blood, but it looks bilious (yellowish). She had a regular meal yesterday and that is when the vomiting started. Since then, she has only tried small volumes and it triggers vomiting. In the ED though, she received fentanyl 25 x1 (12h ago), which resolved the pain, and she has been able to tolerate some PO. Labs also reveal an ANNE-MARIE, Cr 2-> 1.7 (baseline 1.3-1.5), and CT a/p revealed enlarged mets to theliver and enlarged RP lymphadenopathy w/ mild R hydroureteronephrosis. She received 1L bolus. On ROS: -She notes no infectious signs, including no fever/chills, no sore throat (only dry throat ), no cough, no diarrhea, no new wounds/cuts. -She notes a recent history (few weeks) of being more swollen: wedding ring no longer fits, some clothes feel tighter. She reports no recent steroids. She receives regular IVF as an outpatient. She notes no orthopnea, no PND, no leg swelling. Her PO intake has gone down a lot the past few months. Of note, she reports also taking -Cymbalta 30 daily -Oxybutynin BID, which I could not find a Rx for. 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 ONCOLOGY HISTORY: - 07/2015 CT A/P - calcified enhancing mass centered in the terminal ileum with possible involvement of the proximal appendix and adjacent desmoplastic, raising suspicion for primary tumor such as carcinoid or possibly adenocarcinoma. 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 Tiny nodules in the omentum which could represent tumor deposits. - 07/2015 Colonoscopy ([facility]) - hemorrhoids, ileitis, and diverticulosis. TREATMENT HISTORY: 1. 10/03/2015 s/p exploratory laparotomy, bilateral salpingo-oophorectomy, partial omentectomy, andperitoneal biopsies by Dr. Jasbir Reeves. At the same time, [facility] Greyson Reeves. 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 - 11/04/2015 MR A/P - Hepatic segment 7 lesion demonstrating mild T2 hyperintensity and diffusion restriction consistent with a metastatic focus. Enhancing nodules with diffusion restriction along the surface of the hepatic segment 6 consistent with serosal metastatic deposits. Nodular soft tissue e nhancement along the left aspect of the vaginal cuff, suspicious for local recurrence - 11/04/2015 CT Chest - no evidence of metastatic disease in the chest - 11/04/2015 Octreotide scan - No evidence for somatostatin receptor positive tumor. 2. OCTREOTIDE 11/07/2015-ongoing - 11/19/18 Gallium dotatate PET - postsurgical changes of exploratory laparotomy and omentectomy with diffuse metastatic disease in the chest, abdomen, and pelvis, including a lesion in the proximal left humerus. 3. PRRT 12/24/2018-08/05/2019 (4 cycles) - 01/25/2020 Dotatate PET - increased size and intensity of uptake in a left humeral metastasis.Newright C7 metastasis. Several liver lesions appear new, within the anterior superior left lobe. These sites are concerning for progression of disease. Decreased uptake and conspicuity of multiple bilateral lung nodules. - 08/01/2020 CT - no significant change in multiple serosal hepatic metastases and omental metastatic disease. Unchanged sclerotic lesion within the inferior right C7 articular facet likely representing metastasis given dotatate uptake. Stable right supraclavicular LN. - 12/27/2020 PET - progressive disease. 4. Afinitor 01/30/2021-03/27/2021 - Discontinued Afinitor due to poor tolerance and symptomatic pneumonitis. - 06/15/2021 MR A/P - majority of liver lesions increased. 5. CABINET study - C1D1 07/21/2021 Cabozantinib/placebo 60mg daily - Dose reduction with C5D1 on 11/27/2021 to 40mg daily (G2 HFS) - Dose reduction with C7D1 on 01/29/2022 to 20mg daily (G2 diarrhea and nausea) - 04/09/2022 scans stable - 06/14/2022 Cycle 12 Cabozantinib/placebo 20 mg daily dose - 07/12/2022 cycle 13 Cabozantinib/placebo 20 mg daily dose - 08/07/2022 cycle 14 Cabozantinib/placebo 20 mg daily dose - 09/05/2022 CT chest abdomen pelvis showed stable hepatic lesions and peritoneal implants; no newfindings. - 09/06/2022 Cycle 15 day 1 Cabozantinib/placebo 20 mg daily dose - 10/18/2022 Cycle 16 day 1 Cabozantinib/placebo 20 mg daily dose - 11/15/2022 Cycle 17 day 1 Cabozantinib/placebo 20 mg daily dose - 12/11/2022 CT: stable - 12/13/2022 Cycle 18 day 1 Cabozantinib/placebo 20 mg daily dose - 01/10/2023 Cycle 19 day 1 Cabozantinib/placebo 20 mg daily dose - 02/07/2023 Cycle 20 day 1 Cabozantinib/placebo 20 mg daily dose - 03/01/2023 CT: stable - 03/07/2023: Cycle 21 (Pt was unblinded, had been randomized to cabozantinib rather than placebo) - 04/04/2023: Cycle 22 Cabozantinib 20 mg daily dose - 05/02/2023: Cycle 23 Cabozantinib 20 mg daily dose - 05/24/2023 CT: stable disease - 05/28/2023: Cycle 24 Cabozantinib 20 mg daily dose - 06/27/2023: Cycle 25 Cabozantinib 20 mg daily dose - 07/25/2023: Cycle 26 Cabozantinib 20 mg daily dose - 08/16/2023 CT: stable disease - 08/27/2023: Cycle 27 Cabozantinib 20 mg daily dose - 09/26/2023 Cycle 28 Cabozantinib 20 mg daily dose - 10/29/2023 Cycle 29 Cabozantinib 20mg daily dose (delayed 5 days per pt d/t rectal drainage and pain) - 11/13/2023 CT: stable disease - 11/26/2023 Cycle 30 Cabozantinib 20mg daily dose - 12/25/2023 Cycle 31 Cabozantinib 20mg daily dose - 01/21/2024 Cycle 32 Cabozantinib 20mg daily dose - 02/12/2024 CT: stable disease - 02/18/2024 Cycle 33 Cabozantnib 20mg daily dose - 03/17/2024 Cycle 34 - 04/14/2024 Cycle 35 -05/06/2024 CT CAP showed progression 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) Neuroendocrine tumor 01/06/2018 Initial Diagnosis Neuroendocrine tumor Active Treatment & Therapy Plans for La Chung Oncology Chemotherapy Treatment: Octreotide 28 Day Cycles - Carcinoid (On Hold) Current day: Day 1, Cycle 79 (Planned for 07/14/2024) Following planned day: Day 1, Cycle 80 (Planned for 08/11/2024) Oncology Treatment (2): cabozantinib (Cabometyx) PO daily 28 day cycles (On Hold) Current day: Day 1, Cycle 1 (Planned for 05/12/2024) Following planned day: Day 1, Cycle 2 (Planned for 06/09/2024) Oncology Supportive Care: DENOSUMAB (XGEVA) INJECTION (On Hold) Current treatment: Treatment 56 (Planned for 07/07/2024) Following planned treatment: Treatment 57 (Planned for 08/04/2024) Specialty Infusion Treatment: Hydration Therapy Plan Current treatment: Treatment 51 (Not started) Past Medical History: Diagnosis Date Arthritis Family history of malignant hyperthermia grandson - questionable Generalized headaches GERD (gastroesophageal reflux disease) History of hemorrhoids History of hemorrhoids - (Added by TW Conv) History of neuroendocrine cancer 07/2015 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, omentum, bone, and vaginal cuff, T4N0 s/p colectomy/BSO/partial omentectomy 09/2015 HL (hearing loss) 2012 Hypercholesteremia Hypertension Motion sickness Obesity PONV (postoperative nausea and vomiting) controlled with IV medication Status post chemotherapy 09/2019 immunotherapy Status post radiation therapy 09/2019 Past Surgical History: Procedure Laterality Date APPENDECTOMY 1992 BILATERAL SALPINGOOPHORECTOMY 10/03/2015 BIOPSY 10/03/2015 Peritoneal COLONOSCOPY 07/2015 CONTRAST INJECTION EVALUATION CENTRAL VENOUS ACCESS DEVICE N/A 06/12/2022 CONTRAST INJECTION EVALUATION CENTRAL VENOUS ACCESS DEVICE N/A 09/04/2022 EXAMINATION UNDER ANESTHESIA 05/30/2020 Examination under anesthesia and fulguration of pseudo epithelial hyperplasia EXPLORATORY LAPAROTOMY 04/13/2019 Exploratory laparotomy with creation of divided loop colostomy GALLBLADDER SURGERY unknown date IR PICC LINE PLACEMENT > 5 YEARS N/A 12/23/2018 IR PICC LINE PLACEMENT > 5 YEARS N/A 02/17/2019 IR PICC LINE PLACEMENT > 5 YEARS N/A 06/09/2019 IR PICC LINE PLACEMENT > 5 YEARS N/A 08/04/2019 OMENTECTOMY 10/03/2015 Partial PORT PLACEMENT CHEST >5 YEARS N/A 09/14/2021 RIGHT COLECTOMY 10/03/2015 Right colectomy STOMA REVISION 07/2019 Fulguration of parastomal hyperplasia TONSILLECTOMY 1955 Tonsillectomy - (Added by TW Conv) TOTAL ABDOMINAL HYSTERECTOMY 1991 appendix removed during this procedure TOTAL KNEE ARTHROPLASTY Left 2015 Allergies Allergen Reactions Morphine Blisters and Rash Ezetimibe-Simvastatin Muscle pain, Other (See comments) and Unknown Muscle weakness Ramipril Cough (Not in a hospital admission) Current Facility-Administered Medications: acetaminophen (TYLENOL) tablet 1,000 mg, 1,000 mg, oral, Once, Nasir Lyons MD amLODIPine (NORVASC) tablet 5 mg, 5 mg, oral, Daily, Nasir Lyons MD Carrier Fluids for Secondary Infusion - 0.9% Sodium Chloride, 30 mL, intravenous, PRN, Bradley Lyons MD DULoxetine DR (CYMBALTA) extended release capsule 30 mg, 30 mg, oral, Daily, Nasir Lyons MD enoxaparin (LOVENOX) syringe 30 mg, 30 mg, subcutaneous, Daily-2100, Nasir Lyons MD levothyroxine (SYNTHROID) tablet 100 mcg, 100 mcg, oral, Daily - 0600, Nasir Lyons MD lidocaine-prilocaine (EMLA) 2.5-2.5 % cream, , topical, PRN, Nasir Lyons MD [Held by Provider] losartan (COZAAR) tablet 25 mg, 25 mg, oral, Daily, Nasir Lyons MD ondansetron (ZOFRAN) injection 4 mg, 4 mg, intravenous, Q4H PRN, Nasir Lyons MD pantoprazole (PROTONIX) 40 mg in sodium chloride 0.9% 10 mL IV Syringe, 40 mg, intravenous, BID, Nasir Lyons MD sodium chloride 0.9% flush 0.5-20 mL, 0.5-20 mL, intra-catheter, Q8H MAUREEN, Nasir Lyons MD sodium chloride 0.9% flush 0.5-20 mL, 0.5-20 mL, intra-catheter, PRN, Nasir Lyons MD sodium chloride 0.9% infusion, 100 mL/hr, intravenous, Continuous, Nasir Lyons MD Current Outpatient Medications: levothyroxine (SYNTHROID) 100 mcg tablet, Take 1 tablet (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) by mouth magazine designer before breakfast, Disp: 90 tablet, Rfl: 3 0.9 % sodium chloride ([facility] sodium chloride 0.9%) injection, Infuse 10 mL into a venous catheteronce a week On saturday (Patient not taking: Reported on 01/14/2024), Disp: , Rfl: 0.9 % sodium chloride (sodium chloride 0.9%) 0.9% infusion, , Disp: , Rfl: amLODIPine (NORVASC) 5 mg tablet, , Disp: , Rfl: amoxicillin 500 mg capsule, TAKE 4 CAPSULES BY MOUTH 1 HOUR BEFORE APPOINTMENT, Disp: , Rfl: ascorbic acid, vitamin C, 500 mg capsule, Take 1 tablet by mouth magazine designer before breakfast (Patient not taking: Reported on 12/24/2023), Disp: , Rfl: cholecalciferol (VITAMIN D-3) 1,000 unit, Take 1 tablet/capsule (1,000 Units total) by mouth daily (Patient taking differently: Take 1 tablet/capsule (1,000 Units total) by mouth every morning), Disp: 90 tablet/capsule, Rfl: 3 clotrimazole-betamethasone (LOTRISONE) cream, Apply 1 Application topically daily as needed (rash) (Patient not taking: Reported on 01/24/2024), Disp: , Rfl: coenzyme [id number] E 100-5 mg-unit capsule, Take 1 tablet by mouth magazine designer before breakfast(Patient not taking: Reported on 12/24/2023), Disp: , Rfl: denosumab (Xgeva) 120 mg/1.7 mL (70 mg/mL) injection, Inject 1.7 mL (120 mg total) under the skin every 28 (twenty-eight) days, Disp: , Rfl: diphenoxylate-atropine (LOMOTIL) 2.5-0.025 mg per tablet, Take 1 tablet by mouth 4 (four) times a day as needed for diarrhea, Disp: 90 tablet, Rfl: [address] (CYMBALTA) 30 mg capsule, Take 1 capsule (30 mg total) by mouth daily, Disp: , Rfl: ergocalciferol (VITAMIN D) 50,000 unit capsule, Take 1 capsule (50,000 Units total) by mouth once aweek for 12 doses (Patient not taking: Reported on 01/14/2024), Disp: 12 capsule, Rfl: 2 fluticasone propionate (FLONASE) 50 mcg/actuation nasal spray, Administer 2 sprays into each nostril daily as needed for rhinitis or allergies (Patient not taking: Reported on 03/17/2024), Disp: , Rfl: heparin 100 unit/mL solution, Infuse 5 mL (500 Units total) into a venous catheter once a week Fluids every -Heparin to flush (Patient not taking: Reported on 12/24/2023), Disp: , Rfl: lidocaine-prilocaine (lidocaine-prilocaine) cream, Apply topically as needed for pain Apply a generous amount topically to port site 1 hour prior to lab/treatment, do not rub in, and cover with non absorbant dressing (Patient taking differently: Apply 1 g (1 Application total) topically as needed for pain Apply a generous amount topically to port site 1 hour prior to lab/treatment, do not rub in,and cover with non absorbant dressing), Disp: 30 g, Rfl: 3 loperamide HCl (IMODIUM A-D ORAL), Take 1 tablet by mouth daily as needed (diarrhea) Patient takes 6-8 tablets a day., Disp: , Rfl: LORazepam (ATIVAN) 0.5 mg tablet, Take 1 tablet 1 hour prior to MRI exam, may repeat dose if upnbxy83 minutes prior to MRI (Patient taking differently: Take 1 tablet (0.5 mg total) by mouth every 8 (eight) hours as needed for anxiety (MRI) Take 1 tablet 1 hour prior to MRI exam, may repeat dose ifneeded 15 minutes prior to MRI), Disp: 2 tablet, Rfl: 0 losartan (COZAAR) 25 mg tablet, Take 1 tablet every day by oral route., Disp: , Rfl: octreotide (SandoSTATIN) 100 mcg/mL injection, Inject 1 mL (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) under the skin every 30 (thirty) days Last dose 11/15/22, Disp: , Rfl: ondansetron (ZOFRAN) 8 mg tablet, TAKE 1 TABLET EVERY 8 HOURS NEEDED FOR NAUSEA OR VOMITING, Disp: 90 tablet, Rfl: 11 ostomy supplies misc, Patient has colostomy and needs Cavilon 3M skin barrier film to manage., Disp: 20 each, Rfl: 6 oxyBUTYnin (DITROPAN) 5 mg tablet, Take 1 tablet (5 mg total) by mouth 2 (two) times a day, Disp: ,Rfl: prochlorperazine (COMPAZINE) 10 mg tablet, Take 1 tablet (10 mg total) by mouth every 6 (six) hoursas needed for nausea (Patient taking differently: Take 1 tablet (10 mg total) by mouth every 6 (six) hours as needed for nausea or vomiting), Disp: 60 tablet, Rfl: 3 simvastatin (ZOCOR) 20 mg tablet, Take 1 tablet (20 mg total) by mouth nightly, Disp: , Rfl: sodium chloride 0.9 % solution, Infuse 1,000 mL into a venous catheter once a week Patient to infuse 1000mL of Normal Saline via CADD Coreas pump set at 300mL/Hr once weekly.- Saturday (Patient not taking: Reported on 01/14/2024), Disp: , Rfl: Facility-Administered Medications Ordered in Other Encounters: amLODIPine (NORVASC) tablet 5 mg, 5 mg, oral, Daily, Sharona Gomez NP, 5 mg at 06/13/24 1723 L-arginine 1.25%/L-lysine 1.25% infusion 1,000 mL, 1,000 mL, intravenous, Continuous, LaurenE. Amaya MD Family History Problem Relation Age of Onset Other (old age) Mother Hearing loss Mother Hypertension Mother Heart disease Mother Suicidality Father Family history of suicide - (Added by TW Conv) Breast cancer Sister 61 Adenocarcinoma of breast - (Added by TW Conv) Cancer Sister Diabetes Sister Hypertension Sister Hypertension Brother Melanoma Daughter 30 Anesthesia problems Grandchild questionable malignant hyperthermia, no work up at this time Social History Tobacco Use Smoking status: Never Smokeless tobacco: Never Substance and Sexual Activity Drug use: No Sexual activity: Defer Partners: Male control/protection: Post-menopausal Alcohol Use: Unknown (05/26/2024) AUDIT-C Frequency of Alcohol Consumption: Not on file Average Number of Drinks: Patient does not drink Frequency of Binge Drinking: Not on file Review of Systems Review of systems per HPI and otherwise all other systems are negative Review of Systems Objective Vitals: Arrival Vitals [06/13/24 1844] Temp 36.7 ??C (98.1 ??F) Pulse 56 Resp 18 BP (!) 187/56 SpO2 100 % Temp src Heart Rate Source Patient Position BP Location FiO2 (%) 24hr Min/Max: Temp Min: 36.4 ??C (97.5 ??F) Max: 36.7 ??C (98.1 ??F) Pulse Min: 54 Max: 71 BP Min: 126/97 Max: 202/67 Resp Min: 12 Max: 23 SpO2 Min: 92 % Max: 100 % Most Recent : Vitals: 06/14/24 1430 BP: 146/66 Pulse: 62 Resp: Temp: SpO2: 96% Weight: I/O last 2 completed shifts: In: 999 [IV Piggyback:999] Out: - Physical exam: VS reviewed NAD RRR normal s1s2 Lungs CTAB Abdo a little distended but soft and non tender to palpation. Less tympanic than expected Legs warm without swelling Lab/Radiology/Diagnostic Review: CBC: Recent Labs Lab Units 06/14/24 0023 WBC K/cumm 9.8 HEMOGLOBIN g/dL 11.6* HEMATOCRIT % 36.6 MCV fL 99.5* MCH pg 31.5 MCHC g/dL 31.7* RDW CV % 14.7 RDWSD fL 54.8* MPV fL 10.9 NEUTROS ABS K/cumm 3.8 LYMPHS PCT % 24.8 CMP: Recent Labs Lab Units 06/14/24 0023 SODIUM mmol/L 139 POTASSIUM PLASMA mmol/L 4.6 CO2 mmol/L 19* BUN SERUM mg/dL 16 GLUCOSE mg/dL 141 CREATININE mg/dL 1.79* CALCIUM mg/dL 8.9 CHLORIDE mmol/L 110 ALBUMIN g/dL 3.9 AST Units/L 30 ALT Units/L 8 ALK PHOS Units/L 79 BILIRUBIN TOTAL mg/dL 0.4 TOTAL PROTEIN g/dL 6.4* ANIONGAP mmol/L 10 LDH: Uric Acid: PT: PTT: Radiology: Pathology: Assessment/Plan Vomiting Onset 24h prior to this note. It is triggered by food, and happens more or less together w/ PO intake. No particular exacerbation of pain w/ it. It is non bloody, but as per patient (not witnessed), it is bilious (yellowish). No diarrhea (ostomy output is as usual or slightly firmer than usual) -CT a/p w/ contrast in the ED with NO report of obstruction and no colitis. -It does show mildly larger mets to the liver -Etiology: unclear. No obstruction, No colitis. Will obtain lipase/amylase (but no signs on CT). Might be a gastroenteritis or other irritation. Might also be related to the R ureteral process. For example, after she received fentanyl in the ED, the R flank pain is gone and she has tolerated small sips in the ED Plan: -PPI IV BID for now. Nausea control. Pain control. Workup of R hydroureteronephrosis. -Trial of full liquid diet, small amount today ANNE-MARIE (acute kidney injury) (HCC) Cr b/l is 1.3-1.5. It is 2 -> 1.7 in the ED. She has had very low PO intake for 24h. She has haddecreased PO intake for a few months (and receives IVF infusion outpatient). CT a/p shows mild R hydroureteronephrosis, which as per report could be from a partial obstruction from lymphadenopathy. -Ddx: 1) Seems pre-renal based on history, rapid improvement w/ IVF, the hydro is noted to be mild and unilateral. 2) of course, obstructive etiology is on the Ddx. 3) presentation also consistent w/transient R stone (passed) -UA not c/f infection -s/p 1L bolus in the ED. Will continue 100 mL/h overnight. Will monitor trend -Consider urology c/s (to weigh in on significance of the ureteronephrosis +/- stent). NPO@MN for that Right flank pain 3 days of R flank/CVA pain. UA not c/f infection. Might be from mild obstruction vs could have lavern stone which has passed -Pain control w/ tylenol, lido patch, ok for low dose opioids. 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 Will continue that Today, I am treating the patient for vomiting, ANNE-MARIE which is in severe exacerbation, progression, orexperiencing treatment side effects as evidenced by vomiting causing ANNE-MARIE, c/f ureteral obstruction,as described in the note. I reviewed the ED and CCC note I reviewed the labs I reviewed the CT report Nasir Lyons MD MAL ENGINEER documented in this encounter Consult Notes * Laurence Torres NP - 06/16/2024 10:20 AM CSTAssociated Order(s): IP [facility] Images from the original note were not included. Medical Oncology Consult/ Established Patient Date: 06/16/2024 Name: La Chung : 1950 AGE: 73 y.o. Requesting Service: Hospital Medicine - Oncology Reason for Consult: neuroendocrine tumor Requesting provider: Dana Barajas MD Chief Complaint: Chief Complaint Patient presents with Hypertension Subjective History of Present Illness Ms. Chung is a 73 y.o.female with HTN, hypothyroidism, neuroendocrine tumor w/ mets to the liver, omentum, vaginal cuff, here w/ N/V and mild Rt hydronephrosis. Presented to ED with 24 hrs vomiting with any PO intake in addition to Rt flank pain. In ED, Cr 2 -> 1.7 after IVF; baseline 1.3-1.5. CT AP with enlarged liver mets and RP LAD leading to mild rt hydroureteronephrosis. Cr initially improved with IVF then worsened and later today. Uro planning cysto and possible stenting this afternoon. Patient and family want to know if her TACE and biopsy planned for Saturday can be moved up during hospitalization or if effects of this hospitalization will require her procedure to be moved. Patient denies any other symptoms or oncologic concerns currently. 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 ONCOLOGY HISTORY: - 07/2015 CT A/P - calcified enhancing mass centered in the terminal ileum with possible involvement of the proximal appendix and adjacent desmoplastic, raising suspicion for primary tumor such as carcinoid or possibly adenocarcinoma. 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 Tiny nodules in the omentum which could represent tumor deposits. - 07/2015 Colonoscopy ([facility]) - hemorrhoids, ileitis, and diverticulosis. TREATMENT HISTORY: 1. 10/03/2015 s/p exploratory laparotomy, bilateral salpingo-oophorectomy, partial omentectomy, andperitoneal biopsies by Dr. Jasbir Reeves. At the same time, she [facility] Greyson Reeves. 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 - 11/04/2015 MR A/P - Hepatic segment 7 lesion demonstrating mild T2 hyperintensity and diffusion restriction consistent with a metastatic focus. Enhancing nodules with diffusion restriction along the surface of the hepatic segment 6 consistent with serosal metastatic deposits. Nodular soft tissue e nhancement along the left aspect of the vaginal cuff, suspicious for local recurrence - 11/04/2015 CT Chest - no evidence of metastatic disease in the chest - 11/04/2015 Octreotide scan - No evidence for somatostatin receptor positive tumor. 2. OCTREOTIDE 11/07/2015-ongoing - 11/19/18 Gallium dotatate PET - postsurgical changes of exploratory laparotomy and omentectomy with diffuse metastatic disease in the chest, abdomen, and pelvis, including a lesion in the proximal left humerus. 3. PRRT 12/24/2018-08/05/2019 (4 cycles) - 01/25/2020 Dotatate PET - increased size and intensity of uptake in a left humeral metastasis.Newright C7 metastasis. Several liver lesions appear new, within the anterior superior left lobe. These sites are concerning for progression of disease. Decreased uptake and conspicuity of multiple bilateral lung nodules. - 08/01/2020 CT - no significant change in multiple serosal hepatic metastases and omental metastatic disease. Unchanged sclerotic lesion within the inferior right C7 articular facet likely representing metastasis given dotatate uptake. Stable right supraclavicular LN. - 12/27/2020 PET - progressive disease. 4. Afinitor 01/30/2021-03/27/2021 - Discontinued Afinitor due to poor tolerance and symptomatic pneumonitis. - 06/15/2021 MR A/P - majority of liver lesions increased. 5. CABINET study - C1D1 07/21/2021 Cabozantinib/placebo 60mg daily - Dose reduction with C5D1 on 11/27/2021 to 40mg daily (G2 HFS) - Dose reduction with C7D1 on 01/29/2022 to 20mg daily (G2 diarrhea and nausea) - 04/09/2022 scans stable - 06/14/2022 Cycle 12 Cabozantinib/placebo 20 mg daily dose - 07/12/2022 cycle 13 Cabozantinib/placebo 20 mg daily dose - 08/07/2022 cycle 14 Cabozantinib/placebo 20 mg daily dose - 09/05/2022 CT chest abdomen pelvis showed stable hepatic lesions and peritoneal implants; no new findings. - 09/06/2022 Cycle 15 day 1 Cabozantinib/placebo 20 mg daily dose - 10/18/2022 Cycle 16 day 1 Cabozantinib/placebo 20 mg daily dose - 11/15/2022 Cycle 17 day 1 Cabozantinib/placebo 20 mg daily dose - 12/11/2022 CT: stable - 12/13/2022 Cycle 18 day 1 Cabozantinib/placebo 20 mg daily dose - 01/10/2023 Cycle 19 day 1 Cabozantinib/placebo 20 mg daily dose - 02/07/2023 Cycle 20 day 1 Cabozantinib/placebo 20 mg daily dose - 03/01/2023 CT: stable - 03/07/2023: Cycle 21 (Pt was unblinded, had been randomized to cabozantinib rather than placebo) - 04/04/2023: Cycle 22 Cabozantinib 20 mg daily dose - 05/02/2023: Cycle 23 Cabozantinib 20 mg daily dose - 05/24/2023 CT: stable disease - 05/28/2023: Cycle 24 Cabozantinib 20 mg daily dose - 06/27/2023: Cycle 25 Cabozantinib 20 mg daily dose - 07/25/2023: Cycle 26 Cabozantinib 20 mg daily dose - 08/16/2023 CT: stable disease - 08/27/2023: Cycle 27 Cabozantinib 20 mg daily dose - 09/26/2023 Cycle 28 Cabozantinib 20 mg daily dose - 10/29/2023 Cycle 29 Cabozantinib 20mg daily dose (delayed 5 days per pt d/t rectal drainage and pain) - 11/13/2023 CT: stable disease - 11/26/2023 Cycle 30 Cabozantinib 20mg daily dose - 12/25/2023 Cycle 31 Cabozantinib 20mg daily dose - 01/21/2024 Cycle 32 Cabozantinib 20mg daily dose - 02/12/2024 CT: stable disease - 02/18/2024 Cycle 33 Cabozantnib 20mg daily dose - 03/17/2024 Cycle 34 - 04/14/2024 Cycle 35 -05/06/2024 CT CAP showed progression 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) Neuroendocrine tumor 01/06/2018 Initial Diagnosis Neuroendocrine tumor Active Treatment & Therapy Plans for [facility] Chemotherapy Treatment: Octreotide 28 Day Cycles - Carcinoid (On Hold) Current day: Day 1, Cycle 79 (Planned for 07/14/2024) Following planned day: Day 1, Cycle 80 (Planned for 08/11/2024) Oncology Treatment (2): cabozantinib (Cabometyx) PO daily 28 day cycles (On Hold) Current day: Day 1, Cycle 1 (Planned for 05/12/2024) Following planned day: Day 1, Cycle 2 (Planned for 06/09/2024) Oncology Supportive Care: DENOSUMAB (XGEVA) INJECTION (On Hold) Current treatment: Treatment 56 (Planned for 07/07/2024) Following planned treatment: Treatment 57 (Planned for 08/04/2024) Specialty Infusion Treatment: Hydration Therapy Plan Current treatment: Treatment 51 (Not started) PAST MEDICAL/SURGICAL HISTORY Past Medical History: Diagnosis Date Arthritis Family history of malignant hyperthermia grandson - questionable Generalized headaches GERD (gastroesophageal reflux disease) History of hemorrhoids History of hemorrhoids - (Added by TW Conv) History of neuroendocrine cancer 07/2015 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, omentum, bone, and vaginal cuff, T4N0 s/p colectomy/BSO/partial omentectomy 09/2015 HL (hearing loss) 2012 Hypercholesteremia Hypertension Motion sickness Obesity PONV (postoperative nausea and vomiting) controlled with IV medication Status post chemotherapy 09/2019 immunotherapy Status post radiation therapy 09/2019 Past Surgical History: Procedure Laterality Date APPENDECTOMY 1992 BILATERAL SALPINGOOPHORECTOMY 10/03/2015 BIOPSY 10/03/2015 Peritoneal COLONOSCOPY 07/2015 CONTRAST INJECTION EVALUATION CENTRAL VENOUS ACCESS DEVICE N/A 06/12/2022 CONTRAST INJECTION EVALUATION CENTRAL VENOUS ACCESS DEVICE N/A 09/04/2022 EXAMINATION UNDER ANESTHESIA 05/30/2020 Examination under anesthesia and fulguration of pseudo epithelial hyperplasia EXPLORATORY LAPAROTOMY 04/13/2019 Exploratory laparotomy with creation of divided loop colostomy GALLBLADDER SURGERY unknown date IR PICC LINE PLACEMENT > 5 YEARS N/A 12/23/2018 IR PICC LINE PLACEMENT > 5 YEARS N/A 02/17/2019 IR PICC LINE PLACEMENT > 5 YEARS N/A 06/09/2019 IR PICC LINE PLACEMENT > 5 YEARS N/A 08/04/2019 OMENTECTOMY 10/03/2015 Partial PORT PLACEMENT CHEST >5 YEARS N/A 09/14/2021 RIGHT COLECTOMY 10/03/2015 Right colectomy STOMA REVISION 07/2019 Fulguration of parastomal hyperplasia TONSILLECTOMY 1955 Tonsillectomy - (Added by TW Conv) TOTAL ABDOMINAL HYSTERECTOMY 1992 appendix removed during this procedure TOTAL KNEE ARTHROPLASTY Left 2014 SOCIAL HISTORY Family History Problem Relation Age of Onset Other (old age) Mother Hearing loss Mother Hypertension Mother Heart disease Mother Suicidality Father Family history of suicide - (Added by TW Conv) Breast cancer Sister 61 Adenocarcinoma of breast - (Added by TW Conv) Cancer Sister Diabetes Sister Hypertension Sister Hypertension Brother Melanoma Daughter 30 Anesthesia problems Grandchild questionable malignant hyperthermia, no work up at this time Social History Tobacco Use Smoking status: Never Smokeless tobacco: Never Substance and Sexual Activity Drug use: No Sexual activity: Defer Partners: Male control/protection: Post-menopausal Alcohol Use: Unknown (05/26/2024) AUDIT-C Frequency of Alcohol Consumption: Not on file Average Number of Drinks: Patient does not drink Frequency of Binge Drinking: Not on file ALLERGIES Allergies Allergen Reactions Morphine Blisters and Rash Ezetimibe-Simvastatin Muscle pain, Other (See comments) and Unknown Muscle weakness Ramipril Cough MEDICATIONS Medications Prior to Admission Medication Sig Dispense Refill Last Dose/Taking diphenoxylate-atropine (LOMOTIL) 2.5-0.025 mg per tablet Take 1 tablet by mouth 4 (four) times a day as needed for diarrhea 90 tablet 0 Past Month levothyroxine (SYNTHROID) 100 mcg tablet Take 1 tablet (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) by mouth magazine designer before breakfast 90 tablet 3 06/13/2024 simvastatin (ZOCOR) 20 mg tablet Take 1 tablet (20 mg total) by mouth nightly Past Week 0.9 % sodium chloride ([facility] sodium chloride 0.9%) injection Infuse 10 mL into a venous catheter once a week On saturday (Patient not taking: Reported on 01/14/2024) 0.9 % sodium chloride (sodium chloride 0.9%) 0.9% infusion (Patient not taking: Reported on 01/14/2024) amLODIPine (NORVASC) 5 mg tablet amoxicillin 500 mg capsule TAKE 4 CAPSULES BY MOUTH 1 HOUR BEFORE APPOINTMENT More than a month ascorbic acid, vitamin C, 500 mg capsule Take 1 tablet by mouth magazine designer before breakfast (Patient not taking: Reported on 12/24/2023) cholecalciferol (VITAMIN D-3) 1,000 unit Take 1 tablet/capsule (1,000 Units total) by mouth daily (Patient taking differently: Take 1 tablet/capsule (1,000 Units total) by mouth every morning) 90 tablet/capsule 3 clotrimazole-betamethasone (LOTRISONE) cream Apply 1 Application topically daily as needed (rash) (Patient not taking: Reported on 01/24/2024) coenzyme L68-[id number] E 100-5 mg-unit capsule Take 1 tablet by mouth magazine designer before breakfast (Patient not taking: Reported on 12/24/2023) denosumab (Xgeva) 120 mg/1.7 mL (70 mg/mL) injection Inject 1.7 mL (120 mg total) under the skin every 28 (twenty-eight) days DULoxetine DR (CYMBALTA) 30 mg capsule Take 1 capsule (30 mg total) by mouth daily ergocalciferol (VITAMIN D) 50,000 unit capsule Take 1 capsule (50,000 Units total) by mouth once a week for 12 doses (Patient not taking: Reported on 01/14/2024) 12 capsule 2 fluticasone propionate (FLONASE) 50 mcg/actuation nasal spray Administer 2 sprays into each nostrildaily as needed for rhinitis or allergies (Patient not taking: Reported on 03/17/2024) heparin 100 unit/mL solution Infuse 5 mL (500 Units total) into a venous catheter once a week Fluids every -Heparin to flush (Patient not taking: Reported on 12/24/2023) lidocaine-prilocaine (lidocaine-prilocaine) cream Apply topically as needed for pain Apply a generous amount topically to port site 1 hour prior to lab/treatment, do not rub in, and cover with non absorbant dressing (Patient taking differently: Apply 1 g (1 Application total) topically as needed for pain Apply a generous amount topically to port site 1 hour prior to lab/treatment, do not rub in, and cover with non absorbant dressing) 30 g 3 loperamide HCl (IMODIUM A-D ORAL) Take 1 tablet by mouth daily as needed (diarrhea) Patient takes 6-8 tablets a day. LORazepam (ATIVAN) 0.5 mg tablet Take 1 tablet 1 hour prior to MRI exam, may repeat dose if needed 15 minutes prior to MRI (Patient taking differently: Take 1 tablet (0.5 mg total) by mouth every 8 (eight) hours as needed for anxiety (MRI) Take 1 tablet 1 hour prior to MRI exam, may repeat dose if needed 15 minutes prior to MRI) 2 tablet 0 losartan (COZAAR) 25 mg tablet Take 1 tablet every day by oral route. octreotide (SandoSTATIN) 100 mcg/mL injection Inject 1 mL (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) under the skin every 30 (thirty) days Last dose 11/15/22 ondansetron (ZOFRAN) 8 mg tablet TAKE 1 TABLET EVERY 8 HOURS NEEDED FOR NAUSEA OR VOMITING 90 tablet 11 [facility] has col[facility] and needs Cavilon 3M skin barrier film to manage. 20 each 6 oxyBUTYnin (DITROPAN) 5 mg tablet Take 1 tablet (5 mg total) by mouth 2 (two) times a day prochlorperazine (COMPAZINE) 10 mg tablet Take 1 tablet (10 mg total) by mouth every 6 (six) hours as needed for nausea (Patient taking differently: Take 1 tablet (10 mg total) by mouth every 6 (six)hours as needed for nausea or vomiting) 60 tablet 3 sodium chloride 0.9 % solution Infuse 1,000 mL into a venous catheter once a week Patient to [id number] of Normal Saline via CADD Coreas pump set at 300mL/Hr once weekly.- Saturday (Patient not taking: Reported on 01/14/2024) Review of Systems: All review of systems are negative unless otherwise noted in the HPI. Objective Vitals: BP 157/65 Pulse 79 Temp 37.6 ??C (99.7 ??F) Resp 8 Ht 160 cm (5' 3 ) Wt 75 kg (165 lb 5.5oz) SpO2 100% BMI 29.29 kg/m?? 24hr Min/Max: Temp Min: 36.4 ??C (97.5 ??F) Max: 37.6 ??C (99.7 ??F) Pulse Min: 71 Max: 81 BP Min: 138/57 Max: 172/59 Resp Min: 8 Max: 24 SpO2 Min: 92 % Max: 100 % Most Recent : Vitals: 06/16/24 1550 BP: 157/65 BP Location: Patient Position: Pulse: 79 Resp: 8 Temp: TempSrc: SpO2: 100% Weight: I/O this shift: In: 600 [I.V.:600] Out: 2 [Blood:2] Physical Exam General Appearance: Alert, cooperative, no distress. HEENT: Mucus membranes moist, NC AT sclera anicteric. Neck: Symmetrical. Lungs: resps even and unlabored on RA Heart: pallor noted Abdomen: ND Extremities: MAIN well, atraumatic Skin: Skin color, texture, turgor normal, no rashes or lesions on exposed skin. Neurologic: A&Ox4. Gait not observed. Psych: Mood is euthymic and conversation is appropriate. Laboratory Interpretation CBC: Recent Labs Lab Units 06/16/24 0050 WBC K/cumm 11.2* HEMOGLOBIN g/dL 11.0* HEMATOCRIT % 35.0* MCV fL 99.2* NEUTROS ABS K/cumm 1.9 Lab Results Component Value Date GLUCOSE 107 06/16/2024 CALCIUM 8.7 06/16/2024 SODIUM 141 06/16/2024 POTASSIUM 4.0 06/16/2024 CO2 22 06/16/2024 CHLORIDE 108 06/16/2024 BUNSER 17 06/16/2024 CREATININE 1.97 (H) 06/16/2024 CMP: Recent Labs Lab Units 06/16/24 0050 SODIUM mmol/L 141 POTASSIUM PLASMA mmol/L 4.0 CO2 mmol/L 22 BUN SERUM mg/dL 17 GLUCOSE mg/dL 107 CREATININE mg/dL 1.97* CALCIUM mg/dL 8.7 CHLORIDE mmol/L 108 ALBUMIN g/dL 4.1 AST Units/L 26 ALT Units/L 9 ALK PHOS Units/L 71 BILIRUBIN TOTAL mg/dL 0.8 TOTAL PROTEIN g/dL 6.3* ANIONGAP mmol/L 11 Lab Results Component Value Date MAGNESIUM 1.9 06/16/2024 PHOS 2.7 06/13/2024 PT: PTT: AB Positive Pathology/Cytology Imaging Interpretation CT Abdomen Pelvis W Contrast Result Date: 06/14/2024 1. Slight increase in size of multiple [...] it. Electronically signed by: Becky Golden M.D. Assessment/Plan #ANNE-MARIE on CKD Likely 2/2 obstruction from malignancy. - Uro c/s; appreciate management. #Neuroendocrine tumor Initially diagnosis in 2015. Underwent exlap, BSO, partial omentectomy and peritoneal biopsies along with right colectomy. Of the ileum, w/ mets to the liver, omentum, bone, vaginal cuff. Initiated on octreotide in 11/2015. 12/24/2018-08/05/2019: PRRT 01/30/2021-03/27/2021: Everolimus 07/21/2021-04/14/2024: CABINET study - cabozantinib/placebo. - given recent progression, plan to proceed with TACE. - Due for TACE/bx on Sat. F/u with IR. If questions regarding timing for TACE, rec c/s IR. Laurence Torres NP Inpatient Nurse Practitioner for the Division of Medical Oncology 06/16/24 3:56 PM For patients or family members viewing this note through [employer]. This note was written as a communication tool between healthcare providers and may contain technical language, terminology and abbreviations that is difficult to interpret without advanced medical training. If you have questions or concerns regarding what is written in this note, please contact ouroffice or, if you or your family member is admitted to the hospital, the primary team responsible for your care. Please do not call the cell or pager numbers listed in this note, as the provider theyare associated with may no longer be involved in your care. Cosigned by Julio César Cano MD PhD at 06/16/2024 4:15 PM THERMAL ENGINEER MAL ENGINEER MAL ENGINEER Associated attestation - Julio César Cano MD PhD - 06/16/2024 4:15 PM THERMAL ENGINEER I have seen and examined the patient on 06/16/24. I agree with the findings and plan of care as documented in the NPP note. La Chung is a 73 y.o. woman with neuroendocrine neoplasm admitted for nausea/vomiting and right hydronephrosis. Being considered for ureteral stenting. She has an existing scheduled procedure for TACE to a progressing liver lesion. Will discuss schedule with IR as she is already admitted. * Xochitl Knowles MD - 06/16/2024 8:57 AM CST Images from the original note were not included. Urology Consult Note Subjective Chief Complaint:R hydroureteronephrosis Requesting provider: Juan History of Present Illness: La Chung is a 73 y.o. female with PMH of hypothyroidism, neuroendocrine tumor s/p multiple rounds of treatment w/ mets to the liver, omentum, vaginal cuff, admitted for N/V with finding of ANNE-MARIE and R hydroureteronephrosis for which urology consulted. Patient presented with several day complaint of N/V, R flank pain. Found to have an ANNE-MARIE of 2(baseline 1.3-1.5) with CT scan showing enlarged mets to liver and enlarged retroperitoneal lymphadenopathy. R kidney with extra renal pelvis, proximal ureter appears to be tethered to retroperitoneal lymph nodes with mild R hydroureteronephrosis. No fever, dysuria, urgency, frequency, suprapubic pain, + flank pain but improved. No gross hematuria. No past urological history UA-1+ leuks, 1+ blood, 6-10 WBC, 3-5 RBC, neg nitrites 06/16/24: Cr 1.97 / WBC 11.2 / Hgb 11.0 Interval History Overnight pt underwent aggressive IV hydration, Cr did not improve. Pt with R flank pain this AM. Discussed with her that it is reasonable to stent, plan for OR today for stent. 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, omentum, bone, and vaginal cuff, T4N0 s/p colectomy/BSO/partial omentectomy 09/2015 HL (hearing loss) 2012 Hypercholesteremia Hypertension Motion sickness Obesity PONV (postoperative nausea and vomiting) controlled with IV medication Status post chemotherapy 09/2019 immunotherapy Status post radiation therapy 09/2019 The patient's past surgical history is notable for: Past Surgical History: Procedure Laterality Date APPENDECTOMY 1992 BILATERAL SALPINGOOPHORECTOMY 10/03/2015 BIOPSY 10/03/2015 Peritoneal COLONOSCOPY 07/2015 CONTRAST INJECTION EVALUATION CENTRAL VENOUS ACCESS DEVICE N/A 06/12/2022 CONTRAST INJECTION EVALUATION CENTRAL VENOUS ACCESS DEVICE N/A 09/04/2022 EXAMINATION UNDER ANESTHESIA 05/30/2020 Examination under anesthesia and fulguration of pseudo epithelial hyperplasia EXPLORATORY LAPAROTOMY 04/13/2019 Exploratory laparotomy with creation of divided loop colostomy GALLBLADDER SURGERY unknown date IR PICC LINE PLACEMENT > 5 YEARS N/A 12/23/2018 IR PICC LINE PLACEMENT > 5 YEARS N/A 02/17/2019 IR PICC LINE PLACEMENT > 5 YEARS N/A 06/09/2019 IR PICC LINE PLACEMENT > 5 YEARS N/A 08/04/2019 OMENTECTOMY 10/03/2015 Partial PORT PLACEMENT CHEST >5 YEARS N/A 09/14/2021 RIGHT COLECTOMY 10/03/2015 Right colectomy STOMA REVISION 07/2019 Fulguration of parastomal hyperplasia TONSILLECTOMY 1955 Tonsillectomy - (Added by TW Conv) TOTAL ABDOMINAL HYSTERECTOMY 1991 appendix removed during this procedure TOTAL KNEE ARTHROPLASTY Left 2015 Objective In/Outs: I/O last 3 completed shifts: In: 1405 [I.V.:1405] Out: - No intake/output data recorded. Physical Exam: Vitals: 06/15/24 1520 06/15/24 2145 06/16/24 0055 06/16/24 0750 BP: 159/53 146/50 (!) 172/59 138/57 BP Location: Left arm Right arm Right arm Right arm Patient Position: HOB 30 degrees HOB 30 degrees HOB 30 degrees Pulse: 75 73 71 79 Resp: 18 18 18 18 Temp: 36.6 ??C (97.9 ??F) 36.6 ??C (97.9 ??F) 36.4 ??C (97.5 ??F) 36.6 ??C (97.9 ??F) TempSrc: Oral Oral Oral Oral SpO2: 97% 94% 92% 95% Weight: Height: General: In no acute distress Pulmonary: Non-labored breathing Cardiovascular: Well perfused Abdomen: soft, non tender, Non distended : voiding spontaneously Psych: Appropriate and cooperative Labs/Imaging: Chem/LFT Lab History Latest Ref Rng & Units 06/13/2024 16:30 06/14/2024 00:23 06/15/2024 01:26 06/16/2024 00:50 Labs-Chem/LFT Sodium 135 - 145 mmol/L 139 139 139 141 Creatinine 0.60 - 1.10 mg/dL 2.03 1.79 1.94 1.97 Bilirubin, total 0.1 - 1.2 mg/dL 0.6 0.4 0.6 0.8 AST 10 - 45 Units/L 32 30 25 26 ALT 7 - 45 Units/L 14 8 11 9 Alk phos 40 - 130 Units/L 85 79 71 71 CrCl- Actual Body Weight (Cockcroft-Gault) 29.7 33.6 31 30.6 Hematology Lab History Latest Ref Rng & Units 06/13/2024 06/14/2024 00:23 06/15/2024 01:26 06/16/2024 00:50 Labs - Hematology WBC 3.8 - 9.9 K/cumm 10.1 9.8 10.5 11.2 Total Hb, POC 11.9 - 15.5 g/dL 12.2 11.6 10.9 11.0 Hct 35.6 - 45.5 % 37.4 36.6 34.1 35.0 Plt 150 - 400 K/cumm 142 145 149 149 Neutrophil abs 1.5 - 6.5 K/cumm 5.1 3.8 4.5 1.9 Lymphocytes, abs 0.8 - 3.3 K/cumm 4.4 2.4 5.8 8.0 Details More values are hidden. Newest values shown. Go to activity for more data. The following images were personally reviewed by me. CT Abdomen Pelvis W Contrast Narrative: EXAMINATION: Computed tomography of the abdomen and [...] and its branches. No suspicious osseous lesions. Impression: 1. Slight increase in size of multiple [...] it. Electronically signed by: Becky Golden M.D. Assessment La Chung is a 73 y.o. female with PMH of hypothyroidism, neuroendocrine tumor s/p multiple rounds of treatment w/ mets to the liver, omentum, vaginal cuff, admitted for N/V with finding of ANNE-MARIE and R hydroureteronephrosis. Difficult to discern looking at imaging if R ureter tethered at lymph nodes is causing hydroureteronephrosis as can trace ureter down to level of bladder and appears decompressed or if extra renal pelvis is causing appearance of hydroureteronephrosis. Patient does have ANNE-MARIE, worsening today despite aggressive hydration IV and PO. Yesterday our team recommended continuing aggressive hydration, encouraging oral intake, however today Cr continues to rise and she reports R flank pain. We recommended R stent placement, plan for ORtoday with Urology Plan - NPO - Plan for OR today for R ureteral stent with Urology -Continue to monitor creatinine - Aggressive hydration IV - strict in/outs -Urology will follow Thank you for allowing us to participate in the care of this patient. For any questions or concerns, please page Urology through the file machine operator. Xochitl Knowles MD 06/16/2024 Cosigned by Mela Dejesus MD at 06/16/2024 1:57 PM THERMAL ENGINEER MAL ENGINEER MAL ENGINEER * File, Susana Palumbo NP - 06/15/2024 8:28 AM CSTAssociated Order(s): IP CONSULT TO UROLOGY Images from the original note were not included. Urology Consult Note Subjective Chief Complaint:R hydroureteronephrosis Requesting provider: Juan History of Present Illness: La Chung is a 73 y.o. female with PMH of hypothyroidism, neuroendocrine tumor s/p multiple rounds of treatment w/ mets to the liver, omentum, vaginal cuff, admitted for N/V with finding of ANNE-MARIE and R hydroureteronephrosis for which urology consulted. Patient presented with several day complaint of N/V, R flank pain. Found to have an ANNE-MARIE of 2(baseline 1.3-1.5) with CT scan showing enlarged mets to liver and enlarged retroperitoneal lymphadenopathy. R kidney with extra renal pelvis, proximal ureter appears to be tethered to retroperitoneal lymph nodes with mild R hydroureteronephrosis. No fever, dysuria, urgency, frequency, suprapubic pain, + flank pain but improved. No gross hematuria. 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, omentum, bone, and vaginal cuff, T4N0 s/p colectomy/BSO/partial omentectomy 09/2015 HL (hearing loss) 2012 Hypercholesteremia Hypertension Motion sickness Obesity PONV (postoperative nausea and vomiting) controlled with IV medication Status post chemotherapy 09/2019 immunotherapy Status post radiation therapy 09/2019 The patient's past surgical history is notable for: Past Surgical History: Procedure Laterality Date APPENDECTOMY 1992 BILATERAL SALPINGOOPHORECTOMY 10/03/2015 BIOPSY 10/03/2015 Peritoneal COLONOSCOPY 07/2015 CONTRAST INJECTION EVALUATION CENTRAL VENOUS ACCESS DEVICE N/A 06/12/2022 CONTRAST INJECTION EVALUATION CENTRAL VENOUS ACCESS DEVICE N/A 09/04/2022 EXAMINATION UNDER ANESTHESIA 05/30/2020 Examination under anesthesia and fulguration of pseudo epithelial hyperplasia EXPLORATORY LAPAROTOMY 04/13/2019 Exploratory laparotomy with creation of divided loop colostomy GALLBLADDER SURGERY unknown date IR PICC LINE PLACEMENT > 5 YEARS N/A 12/23/2018 IR PICC LINE PLACEMENT > 5 YEARS N/A 02/17/2019 IR PICC LINE PLACEMENT > 5 YEARS N/A 06/09/2019 IR PICC LINE PLACEMENT > 5 YEARS N/A 08/04/2019 OMENTECTOMY 10/03/2015 Partial PORT PLACEMENT CHEST >5 YEARS N/A 09/14/2021 RIGHT COLECTOMY 10/03/2015 Right colectomy STOMA REVISION 07/2019 Fulguration of parastomal hyperplasia TONSILLECTOMY 195 Tonsillectomy - (Added by TW Conv) TOTAL ABDOMINAL HYSTERECTOMY 1992 appendix removed during this procedure TOTAL KNEE ARTHROPLASTY Left 2015 Review of systems negative other than what is stated in the HPI. Objective In/Outs: I/O last 3 completed shifts: In: 999 [IV Piggyback:999] Out: - No intake/output data recorded. Physical Exam: Vitals: 06/14/24 1805 06/14/24201406/15/24 0120 06/15/24 0800 BP: (!) 176/51 155/74 152/58 144/54 BP Location: Right arm Left arm Right arm Patient Position: HOB 30 degrees Lying Pulse: 65 74 71 82 Resp: 17 16 16 19 Temp: 36.4 ??C (97.5 ??F) 36.6 ??C (97.9 ??F) 36.6 ??C (97.8 ??F) 36.7 ??C (98 ??F) TempSrc: Oral Oral Oral Oral SpO2: 97% 98% 94% 96% Weight: Height: General: In no acute distress Pulmonary: Non-labored breathing Cardiovascular: Well perfused Abdomen: soft, non tender, Non distended : voiding spontaneously Neuro: Alert and oriented Psych: Appropriate and cooperative Labs/Imaging: Chem/LFT Lab History Latest Ref Rng & Units 06/09/2024 13:27 06/13/2024 16:30 06/14/2024 00:23 06/15/2024 01:26 Labs-Chem/LFT Sodium 135 - 145 mmol/L 140 139 139 139 Creatinine 0.60 - 1.10 mg/dL 1.73 2.03 1.79 1.94 Bilirubin, total 0.1 - 1.2 mg/dL 0.6 0.6 0.4 0.6 AST 10 - 45 Units/L 28 32 30 25 ALT 7 - 45 Units/L 9 14 8 11 Alk phos 40 - 130 Units/L 79 85 79 71 CrCl- Actual Body Weight (Cockcroft-Gault) 34.8 29.7 33.6 31 Hematology Lab History Latest Ref Rng & Units 05/12/2024 10:26 06/13/2024 06/14/2024 00:23 06/15/2024 01:26 Labs - Hematology WBC 3.8 - 9.9 K/cumm 7.9 10.1 9.8 10.5 Total Hb, POC 11.9 - 15.5 g/dL 11.3 12.2 11.6 10.9 Hct 35.6 - 45.5 % 35.5 37.4 36.6 34.1 Plt 150 - 400 K/cumm 129 142 145 149 Neutrophil abs 1.5 - 6.5 K/cumm 2.5 5.1 3.8 4.5 Lymphocytes, abs 0.8 - 3.3 K/cumm 3.0 4.4 2.4 5.8 Details More values are hidden. Newest values shown. Go to activity for more data. The following images were personally reviewed by me. CT Abdomen Pelvis W Contrast Narrative: EXAMINATION: Computed tomography of the abdomen and [...] and its branches. No suspicious osseous lesions. Impression: 1. Slight increase in size of multiple [...] it. Electronically signed by: Becky Golden M.D. Assessment La Chung is a 73 y.o. female with PMH of hypothyroidism, neuroendocrine tumor s/p multiple rounds of treatment w/ mets to the liver, omentum, vaginal cuff, admitted for N/V with finding of ANNE-MARIE and R hydroureteronephrosis. Difficult to discern looking at imaging if R ureter tethered at lymph nodes is causing hydroureteronephrosis as can trace ureter down to level of bladder and appears decompressed or if extra renal pelvis is causing appearance of hydroureteronephrosis. Patient does have ANNE-MARIE but this could be due to her poor oral intake is setting of active cancer treatment. After discussing with urologic attending, do not feel patient needs acute urologic intervention and would recommend continuing aggressive hydration, encouraging oral intake. Continue monitoring creatinine as well as assessing for development of fevers, worsening flank pain. Should she not improve or condition worsens, can be taken to OR for ureteral stent placement. This was discussed in detail with patient, daughter and . Plan -Continue to monitor creatinine -Aggressive hydration (Oral and/or IV) -Monitor fevers, flank pain -Urology will follow Thank you for allowing us to participate in the care of this patient. For any questions or concerns, please page Urology through the file machine operator. Susana Tate NP 06/15/2024 Cosigned by Pa Teran MD at 06/15/2024 1:48 PM THERMAL ENGINEER MAL ENGINEER MAL ENGINEER Associated attestation - Pa Teran MD - 06/15/2024 1:48 PM THERMAL ENGINEER I have seen and examined the patient on 06/15/24. I agree with the findings and plan of care as documented in the resident's/fellow's note. 73 yo F with a history of neuroendocrine tumor s/p multiple rounds of treatment with evidence of metastatic disease admitted for failure to thrive with nausea, vomiting and ANNE-MARIE in the setting of mildR hydronephrosis. CT personally reviewed and shown to patient and family. Diminutive kidneys bilaterally with slightly delayed R nephrogram with mild proximal R hydronephrosis which could represent extrarenal kidney versus chronic UPJO. Ureter appears to decompress prior to traversing enlarged retroperitoneal lymph nodes. Given likely multifactorial nature of ANNE-MARIE with strong pre-renal disposition, would recommend conservative management with rehydration and resuscitation per primary team. If Crcontinues to uptrend despite these measures or patient develops fevers, worsening flank pain, or signs/symptoms of sepsis, will reconsider for ureteral stent placement. documented in this encounter Nursing Notes * Kelly Fonseca RN - 06/19/2024 3:27 PM CST Checked in with the patient prior to potential discharge weekend discharge, patient asleep, family present at bedside, cancer care clinic option discussed, flyer provided, no concerns at this time. 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 Patient presented to the oncology clinic earlier today for symptoms and was treated with IV fluids Zofran. Patient was noted to have systolic blood pressure in 200s and was sent tot ED. Patient's daughter notes that patient has been anxious regarding procedure upcoming on thisiday. Patient has also not been compliant with home blood pressures pressure medication. Patient notes that she has had decreased output in her colostomy bag. Patient otherwise denies any fevers, chills, chest pain, shortness of breath, headache, or any other symptoms at this time. Patient Active Problem List Diagnosis Date Noted ANNE-MARIE (acute kidney injury) ([facility]) and Mild right hydroureteronephrosis 06/14/2024 Vomiting 06/14/2024 HTN (hypertension) 06/14/2024 Anxiety 06/14/2024 High risk medication use 01/31/2024 Hypothyroidism 09/12/2023 Proctitis 04/09/2022 Thrombocytopenia (HCC) 04/09/2022 Dehydration 03/15/2022 Depressive disorder 02/15/2022 Hypomagnesemia 10/16/2021 Hearing loss 08/30/2021 Vertigo 08/30/2021 Muscle weakness 08/16/2021 Nausea 08/11/2021 Hypophosphatemia 06/14/2021 Closed displaced fracture of head of right radius 11/20/2020 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, unspecified ([facility]) 04/14/2020 Right flank pain 01/13/2020 Benign essential hypertension 01/13/2020 Blepharitis 01/13/2020 Cough 01/13/2020 Diarrhea 01/13/2020 Enthesopathy of knee 01/13/2020 Vitamin D deficiency 01/13/2020 Knee pain 01/13/2020 Low back pain 01/13/2020 Mass of ovary 01/13/2020 Osteoarthritis of knee 01/13/2020 Pure hypercholesterolemia 01/13/2020 Shoulder joint pain 01/13/2020 Epithelial hyperplasia 07/22/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) 05/14/2019 Acute blood loss anemia 04/17/2019 Hypocalcemia 04/14/2019 Stage 3b chronic kidney disease (HCC) 04/14/2019 Large bowel obstruction (CMS/HCC) (HCC) 04/12/2019 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) 03/02/2019 Neuro-endocrine carcinoma (HCC) 06/18/2018 Neuroendocrine tumor 01/06/2018 Mixed incontinence 10/23/2017 H/O actinic keratosis 07/05/2017 Personal history of diseases of skin or subcutaneous tissue 07/05/2017 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) 04/09/2017 Anemia 04/09/2016 Neuroendocrine carcinoma (CMS/HCC) (HCC) 10/24/2015 Obesity with body mass index 30 or greater 09/01/2015 Family history of malignant neoplasm of other organs or systems 06/29/2015 Family history of melanoma 06/29/2015 Abnormal findings on diagnostic imaging of breast 06/07/2014 Past Medical History: Diagnosis Date Arthritis Family history of malignant hyperthermia grandson - questionable Generalized headaches GERD (gastroesophageal reflux disease) History of hemorrhoids History of hemorrhoids - (Added by TW Conv) History of neuroendocrine cancer 07/2015 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, omentum, bone, and vaginal cuff, T4N0 s/p colectomy/BSO/partial omentectomy 09/2015 HL (hearing loss) 2012 Hypercholesteremia Hypertension Motion sickness Obesity PONV (postoperative nausea and vomiting) controlled with IV medication Status post chemotherapy 09/2019 immunotherapy Status post radiation therapy 09/2019 Past Surgical History: Procedure Laterality Date APPENDECTOMY 1992 BILATERAL SALPINGOOPHORECTOMY 10/03/2015 BIOPSY 10/03/2015 Peritoneal COLONOSCOPY 07/2015 CONTRAST INJECTION EVALUATION CENTRAL VENOUS ACCESS DEVICE N/A 06/12/2022 CONTRAST INJECTION EVALUATION CENTRAL VENOUS ACCESS DEVICE N/A 09/04/2022 EXAMINATION UNDER ANESTHESIA 05/30/2020 Examination under anesthesia and fulguration of pseudo epithelial hyperplasia EXPLORATORY LAPAROTOMY 04/13/2019 Exploratory laparotomy with creation of divided loop colostomy GALLBLADDER SURGERY unknown date IR PICC LINE PLACEMENT > 5 YEARS N/A 12/23/2018 IR PICC LINE PLACEMENT > 5 YEARS N/A 02/17/2019 IR PICC LINE PLACEMENT > 5 YEARS N/A 06/09/2019 IR PICC LINE PLACEMENT > 5 YEARS N/A 08/04/2019 OMENTECTOMY 10/03/2015 Partial PORT PLACEMENT CHEST >5 YEARS N/A 09/14/2021 RIGHT COLECTOMY 10/03/2015 Right colectomy STOMA REVISION 07/2019 Fulguration of parastomal hyperplasia TONSILLECTOMY 1955 Tonsillectomy - (Added by TW Conv) TOTAL ABDOMINAL HYSTERECTOMY 1992 appendix removed during this procedure TOTAL KNEE ARTHROPLASTY Left 2015 Family History Problem Relation Age of Onset Other (old age) Mother Hearing loss Mother Hypertension Mother Heart disease Mother Suicidality Father Family history of suicide - (Added by SONIYA Conv) Breast cancer Sister 61 Adenocarcinoma of breast - (Added by SONIYA Conv) Cancer Sister Diabetes Sister Hypertension Sister Hypertension Brother Melanoma Daughter 30 Anesthesia problems Grandchild questionable malignant hyperthermia, no work up at this time Social History Tobacco Use Smoking status: Never Smokeless tobacco: Never Vaping Use Vaping status: Never Used Substance and Sexual Activity Alcohol use: Yes Alcohol/week: 1.0 standard drink of alcohol Types: 1 Shots of liquor per week Drug use: No Sexual activity: Defer Partners: Male control/protection: Post-menopausal Social History Social History Narrative : (Added by SONIYA Conv) Retired : (Added by SONIYA Conv) Occasional alcohol use : (Added by SONIYA Conv) Review of Systems Review of Systems All other systems reviewed and are negative. Physical Exam ED Triage Vitals Temp Pulse Resp BP SpO2 06/13/24 1844 06/13/24 1844 06/13/24 1844 06/13/24 1844 06/13/24 184 36.7 ??C (98.1 ??F) 56 18 (!) 187/56 100 % Temp src Heart Rate Source Patient Position BP Location FiO2 (%) 06/14/24 1805 06/14/24 1805 06/14/24 1805 06/14/24 180 -- Oral Monitor HOB 30 degrees Right arm Height Height Method Weight Weight Method 06/13/24 1844 -- 06/13/24 184 -- 1.6 m (5' 3 ) 78.5 kg (173 lb) Physical Exam Vitals and nursing note reviewed. Constitutional: Appearance: She is well-developed. HENT: Head: Normocephalic and atraumatic. Eyes: Conjunctiva/sclera: Conjunctivae normal. Cardiovascular: Rate and Rhythm: Normal rate and regular rhythm. Heart sounds: No murmur heard. Pulmonary: Effort: Pulmonary effort is normal. No respiratory distress. Breath sounds: Normal breath sounds. Abdominal: General: Bowel sounds are normal. Palpations: Abdomen is soft. Tenderness: There is abdominal tenderness in the right upper quadrant. There is no guarding or rebound. Comments: Colostomy bag in LLQ Musculoskeletal: General: No swelling. Cervical back: Neck supple. Skin: General: Skin is warm and dry. Capillary Refill: Capillary refill takes less than 2 seconds. Neurological: Mental Status: She is alert. Psychiatric: Mood and Affect: Mood normal. 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 Patientinitially hypertensive, but but has come down. Patient is otherwise afebrile and satting appropriately on room air. Physical exam notable for right upper quadrant abdominal tenderness without reboundor guarding with bowel sounds heard throughout. Given presentation, most likely concerning for small bowel obstruction. Differential also includes viral gastroenteritis, hepatitis, gastritis, colitis. At this time we will workup with CBC, CMP, and obtain CT abdomen and pelvis with contrast. We willprovide IV fluids and Zofran. We will most likely be admitted. Medical Decision Making Attending Summary of Care ED Course as of 06/16/24 0029 Time: 06/14 0031 Comment: Attending Attestation I have seen and examined this patient, I have discussed/reviewed the history, physical exam and assessment with the resident. We are in agreement with treatment plan except as I have noted, and I agree with their documentation except as noted. Briefly, this is a 73-year-old female with a history of metastatic neuroendocrine tumor of the abdomen on octreotide infusions (last 5 days ago) presenting today with concern for elevated blood pressure and an ANNE-MARIE. She is reporting right flank pain and has had nausea and vomiting today. She has no gas or stool in her ostomy bag which was last emptied at about 4:00 p.m.. She has mild tenderness across the upper abdomen with no flank tenderness to percussion and no midline tenderness in the back.I have concern for small bowel obstruction primarily, we will get CT scan. ANNE-MARIE is mild (baseline of1.4 which has slowly increased to 1.7 and eventually 2.0) - diagnostic yield of CT scan with contrast outweighs the risk to this patient. By: Stu Huang MD Time: 06/14 0439 Comment: CT read shows increased cancer burden with hydronephrosis/hydroureter on the right tethered to retroperitoneal adenopathy - there is no kidney stone. With her progressively worsening renal function this could be an indication for percutaneous nephrostomy diversion - will admit and IR can see in the AM. By: Stu Huang MD Time: 06/14 1410 Comment: Discussed CT findings with the pt and explained how IR will see her on the floor. By: Sabrina Riggs, ANNE-MARIE (acute kidney injury) (HCC) 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 History of malignant neuroendocrine tumor Kelton Borjas MD Resident 06/16/24 0031 Kelton Borjas MD Resident 06/16/24 1537 Cosigned by Stu Huang MD at 06/17/2024 12:49 PM THERMAL ENGINEER MAL ENGINEER MAL ENGINEER * Susana Mon, RN - 06/13/2024 10:27 PM CST Bed: ED2-17 Expected date: 06/13/24 Expected time: 6:30 PM Means of arrival: On Foot Comments: Susana Mon, RN 12/01/28 2227 MAL ENGINEER * Marlen Andino RN - 06/13/2024 6:39 PM CST Pt [facility] after vomiting today since noon, pt endorsing nausea, R sided back pain near her waist, diarrhea (ostomy present) with minimally changed output. Pt found to have HTN at 210/67, treated with meds at the clinic and here for further evaluation. Pt arrives with R chest port accessed by the clinic, AOx4, denies sick contacts. MAL ENGINEER documented in this encounter Miscellaneous Notes * Plan of Care - Marcia Haynes RN - 06/20/2024 10:56 AM CST Goals: Clinical Goals for the Shift: VSS, comfort, safety Summary: VSS. Pt resting well. No c/o pain. Per pt, blood in urine has decreased. Pt agreeable to plan for d/c. Care plan ongoing. MAL ENGINEER * Initial Assessments - Sima Agrawal LCSW - 06/20/2024 10:56 AM CST Social Work Assessment Clinical Dx: ANNE-MARIE (acute kidney injury) (HCC) Past Medical History: Date of last inpatient admission: Previous admit date: 04/09/2022 Number of inpatient admissions in past year: 1 Reason for Current Hospitalization (Pt/Caregiver Stated): Nausea and vomiting (06/20/24 1051) Patient Information: Information Obtained From: Patient Marital Status: Does Pt have Legal Guardian, Surrogate Decision Maker or Healthcare Agent? 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 Payor Source: Medicare, Supplemental Race: White/ Ethnicity: Non- Gender Identity: Female Service : None (06/20/24 1051) Current Situation: Current Situation Living Arrangements: Spouse/significant other Type of Residence: Private residence Income: Assisted/Pension Education Level : High School Diploma How do you Pay for Medication: Insurance Current Transportation: Own vehicle, Family/friends (06/20/24 105) Legal History: Legal History Legal Information : No legal issues (06/20/24 105) Support Systems and Spirituality: Support Systems and Spirituality Support System: Spouse, Children Spouse Name/Contact Information: Alejo Chung (spouse, ) Children Name/Contact Information: Caroline Chung (daughter, ) and three other adult children Do you have a Anglican Preference or Affiliation?: Yes Preference/Affiliation : Orthodox Are there any Anglican Practices that are important to maintain while admitted?: No Do you have Cultural Factors that are important to you?: No History of physical abuse? : No History of physically abusing others? : No History of sexual abuse?: No History of sexually abusing others? : No History of Mental/Emotional Abuse? : No (06/20/241050) Strengths, Assets, Liabilities and Stressors: Strengths, Assets, Liabilities, and Stressors Strengths (Must Choose Two): Interpersonal relationships and supports,i.e., family, friends, peers,Motivation and readiness for change, Access to housing/residential stability, Financial stability Patient Assets: Home, Income, Insured, Transportation, Use of Supports, Supportive family Does Pt have access to Employee Assistance Program: No Patient Barriers : Poor physical health Current Stressors: Chronic illness (06/20/24 105) SDOH Transportation Needs: No Transportation Needs (06/20/2024) PRAPARE - Transportation Lack of Transportation (Medical): No Lack of Transportation (Non-Medical): No Financial Resource Strain: Low Risk (06/20/2024) Overall Financial Resource Strain (CARDIA) Difficulty of Paying Living Expenses: Not hard at all Housing Stability: Low Risk (06/20/2024) Housing Stability Vital Sign Unable to Pay for Housing in the Last Year: No Number of Times Moved in the Last Year: 0 Homeless in the Last Year: No Social Connections: Socially Integrated (06/20/2024) Social Connection and Isolation Panel [NHANES] Frequency of Communication with Friends and Family: More than three times a week Frequency of Social Gatherings with Friends and Family: More than three times a week Attends Anglican Services: More than 4 times per year Active Member of Clubs or Organizations: Yes Attends Club or Organization Meetings: More than 4 times per year Marital Status: Food Insecurity: No Food Insecurity (06/20/2024) Hunger Vital Sign Worried About Running Out of Food in the Last Year: Never true Ran Out of Food in the Last Year: Never true Tobacco Use: Low Risk (06/19/2024) Patient History Smoking Tobacco Use: Never Smokeless Tobacco Use: Never Passive Exposure: Not on file Alcohol Use: Unknown (05/26/2024) AUDIT-C Frequency of Alcohol Consumption: Not on file Average Number of Drinks: Patient does not drink Frequency of Binge Drinking: Not on file PHQ Screening Over the last 2 weeks, how often have you been bothered by any of the following problems? Little Interest or Pleasure in Doing Things: Not at all Feeling Down, Depressed, or Hopeless: Not at all PHQ-2 Total Score (If total score is 3 or more points, staff should administer the PHQ-9): 0 Over the past 2 weeks, how often have you been bothered by any of the following problems? Little Interest or Pleasure in Doing Things: Not at all Feeling Down, Depressed, or Hopeless: Not at all PHQ-2 Total Score (If total score is 3 or more points, staff should administer the PHQ-9): 0 Current/Former Smokers - Passive Exposure Questions Responses Current/Former Smoker - passive exposure (e.g., household member smoking)? No E-Cigarette/Vaping Questions Responses E-cigarette/Vaping Use Never User Substance Abuse, Mental Health, and Trauma History: Chemical Dependency, Mental Health & Trauma History Chemical Dependency: None reported Mental Health: None reported (06/20/24 1051) Risk to Self and Others: Risk to Self and Others Violence risk to self in past 6 months? : No Self Harm/Suicidal Ideation Plan: No Previous Self Harm/Suicidal Attempts: No Violence risk to others in past 6 months? : No Any lifetime risk of violence to others? : No Current Plans to Harm Another: No Previous Plans to Harm Another: None reported (06/20/24 105) Impressions and Recommendations: > Criteria for assessment and background Social work consulted for high readmission risk. Social work met with patient at bedside. Patient presented A&Ox4 with appropriate affect and mood, had appropriate eye contact, and was forthcoming with information. Alejo Chung (spouse, ) was also present for this conversation HPI per MD documentation: La Chung is a 73 y.o. female with PMH of hypothyroidism, neuroendocrine tumor s/p multiple rounds of treatment w/ mets to the liver, omentum, vaginal cuff, admitted forN/V with finding of ANNE-MARIE and R hydroureteronephrosis for which urology consulted. Discussed bills, food, transportation, housing, and social supports. Patient denied current concerns or barriers in all areas of SDOH. Patient stated they live in a private residence with their . Patient expressed good social support from their spouse, Caroline Chung (daughter, ) and three other adult children. Patient reports no current or past abuse, HI/SI, mental health diagnosis or chemical dependency. > Summary of assessment Patient reports their basic SDOH needs are met at this time. > SW intervention No sw intervention required at this time. > Conclusion/ discharge plan SW summarized discussion with patient and thanked patient for their time. Per SW and patient, no additional SW needs identified at this time. Discussion ended mutually. No further Social Work interventions identified. Patient does not have an advanced directive on file and is not interested in completing one at thistime. Alejo stated that they have an appointment to meet with a lawyer probate for completion of POA. Sima Agrawal LCSW Please see [facility] Treatment Team for contact information. MAL ENGINEER * Plan of Care - Soniya López RN - 06/20/2024 6:48 AM CST Goals: Clinical Goals for the Shift: VSS, comfort, safety Summary: vitals stable, RA, potassium and magnesium replaced. No complaints of pain. MAL ENGINEER * Plan of Care - Sis Pedraza RN - 06/19/2024 7:00 PM CST TACE/Liver biopsy completed. Post-op vitals performed. 1x dose of Tylenol given d/t right shoulder pain. Plan of care ongoing. Problem: Discharge Planning Goal: Understanding discharge needs will improve Outcome: Ongoing Problem: Musculoskeletal Goal: Return ADL status to a safe level of function Outcome: Ongoing Goals: Clinical Goals for the Shift: VSS, comfort, safety MAL ENGINEER * Post-Procedure Note - Dar Willett MD - 06/19/2024 11:15 AM THERMAL ENGINEER Radiology Brief Post Procedure Note Attending: Kt Striper Spray Gun: Tamie Sedation/Anesthesia: Min Sedation Pre-Op/Pre-Procedure Diagnosis: metastatic neuroendocrine cancer Post-Op/Post-Procedure Diagnosis: same Procedure Performed: TACE posterior division of RHA Procedure Findings: same Complications: None Estimated Blood Loss: < 30 ml Specimens: None Condition: Stable Full report to follow. MAL ENGINEER * Plan of Care - Maureen Marrufo LCSW - 06/19/2024 11:08 AM CST SW consult received for high-risk readmission (24%). Patient currently off the floor at IR; therefore, SW unable to assess. SW to attempt to meet with pt to complete assessments prior to discharge. Maureen Marrufo LCSW MAL ENGINEER * Post-Procedure Note - Dar Willett MD - 06/19/2024 8:52 AM THERMAL ENGINEER Radiology Brief Post Procedure Note Attending: Kt Striper Spray Gun: Tamie Sedation/Anesthesia: Min Sedation Pre-Op/Pre-Procedure Diagnosis: neuroendocrine tumor Post-Op/Post-Procedure Diagnosis: same Procedure Performed: CT guided liver biopsy Procedure Findings: successful Complications: None Estimated Blood Loss: < 30 ml Specimens: 4 2.3 cm specimens sent to lab Condition: Stable Full report to follow. MAL ENGINEER * Plan of Care - Nati Rousseau RN - 06/19/2024 6:13 AM CST Goals: Clinical Goals for the Shift: VSS, comfort, safety Summary: Pt stable, NPO since midnight, no complaints. MAL ENGINEER * Plan of Care - Sis Pedraza RN - 06/18/2024 8:59 PM CST VSS. Kidney ultrasound completed. Patient denies pain. NPO @ midnight d/t TACE procedure. Plan of care ongoing. Problem: Discharge Planning Goal: Understanding discharge needs will improve Outcome: Ongoing Problem: Skin/Tissue Integrity Goal: Skin integrity remains intact Outcome: Ongoing Goals: Clinical Goals for the Shift: VSS, comfort, safety MAL ENGINEER * Consults, Subsequent - Xochitl Knowles MD - 06/18/2024 5:56 PM THERMAL ENGINEER Images from the original note were not included. Urology Consult Note Subjective Chief Complaint:R hydroureteronephrosis Requesting provider: Juan History of Present Illness: La Chung is a 73 y.o. female with PMH of hypothyroidism, neuroendocrine tumor s/p multiple rounds of treatment w/ mets to the liver, omentum, vaginal cuff, admitted for N/V with finding of ANNE-MARIE and R hydroureteronephrosis for which urology consulted. Patient presented with several day complaint of N/V, R flank pain. Found to have an ANNE-MARIE of 2(baseline 1.3-1.5) with CT scan showing enlarged mets to liver and enlarged retroperitoneal lymphadenopathy. R kidney with extra renal pelvis, proximal ureter appears to be tethered to retroperitoneal lymph nodes with mild R hydroureteronephrosis. Interval History Patient underwent R ureteral stent placement yesterday afternoon. She appears well this morning andis without complaints. Reports hematuria is continuing. 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, omentum, bone, and vaginal cuff, T4N0 s/p colectomy/BSO/partial omentectomy 09/2015 HL (hearing loss) 2012 Hypercholesteremia Hypertension Motion sickness Obesity PONV (postoperative nausea and vomiting) controlled with IV medication Status post chemotherapy 09/2019 immunotherapy Status post radiation therapy 09/2019 The patient's past surgical history is notable for: Past Surgical History: Procedure Laterality Date APPENDECTOMY 1992 BILATERAL SALPINGOOPHORECTOMY 10/03/2015 BIOPSY 10/03/2015 Peritoneal COLONOSCOPY 07/2015 CONTRAST INJECTION EVALUATION CENTRAL VENOUS ACCESS DEVICE N/A 06/12/2022 CONTRAST INJECTION EVALUATION CENTRAL VENOUS ACCESS DEVICE N/A 09/04/2022 EXAMINATION UNDER ANESTHESIA 05/30/2020 Examination under anesthesia and fulguration of pseudo epithelial hyperplasia EXPLORATORY LAPAROTOMY 04/13/2019 Exploratory laparotomy with creation of divided loop colostomy GALLBLADDER SURGERY unknown date IR PICC LINE PLACEMENT > 5 YEARS N/A 12/23/2018 IR PICC LINE PLACEMENT > 5 YEARS N/A 02/17/2019 IR PICC LINE PLACEMENT > 5 YEARS N/A 06/09/2019 IR PICC LINE PLACEMENT > 5 YEARS N/A 08/04/2019 OMENTECTOMY 10/03/2015 Partial PORT PLACEMENT CHEST >5 YEARS N/A 09/14/2021 RIGHT COLECTOMY 10/03/2015 Right colectomy STOMA REVISION 07/2019 Fulguration of parastomal hyperplasia TONSILLECTOMY 1955 Tonsillectomy - (Added by TW Conv) TOTAL ABDOMINAL HYSTERECTOMY 1991 appendix removed during this procedure TOTAL KNEE ARTHROPLASTY Left 2014 Objective In/Outs: I/O last 3 completed shifts: In: 800 [P.O.:800] Out: 2024 [Urine:2024] No intake/output data recorded. Physical Exam: Vitals: 06/17/24 1934 06/18/24 0432 06/18/24 0823 06/18/24 1636 BP: 138/46 137/57 136/49 BP Location: Right arm Right arm Right arm Patient Position: HOB 30 degrees Lying Sitting Pulse: 76 76 80 Resp: 18 18 18 18 Temp: 36.7 ??C (98 ??F) 36.6 ??C (97.8 ??F) 36.3 ??C (97.3 ??F) 36.2 ??C (97.2 ??F) TempSrc: Oral Oral Temporal Oral SpO2: 94% 96% 95% Weight: Height: General: In no acute distress Pulmonary: Non-labored breathing Cardiovascular: Well perfused Abdomen: soft, non tender, Non distended : voiding spontaneously, urine clear light red Psych: Appropriate and cooperative Labs/Imaging: Chem/LFT Lab History Latest Ref Rng & Units 06/15/2024 01:26 06/16/2024 00:50 06/17/2024 01:25 06/18/2024 01:37 Labs-Chem/LFT Sodium 135 - 145 mmol/L 139 141 142 141 Creatinine 0.60 - 1.10 mg/dL 1.94 1.97 1.65 1.62 Bilirubin, total 0.1 - 1.2 mg/dL 0.6 0.8 0.6 0.5 AST 10 - 45 Units/L 25 26 25 24 ALT 7 - 45 Units/L 11 9 11 11 Alk phos 40 - 130 Units/L 71 71 75 62 CrCl- Actual Body Weight (Cockcroft-Gault) 31 29.2 34.9 35.5 Hematology Lab History Latest Ref Rng & Units 06/15/2024 01:26 06/16/2024 00:50 06/17/2024 01:25 06/18/2024 01:37 Labs - Hematology WBC 3.8 - 9.9 K/cumm 10.5 11.2 11.3 9.0 Total Hb, POC 11.9 - 15.5 g/dL 10.9 11.0 11.4 10.2 Hct 35.6 - 45.5 % 34.1 35.0 35.1 32.0 Plt 150 - 400 K/cumm 149 149 156 155 Neutrophil abs 1.5 - 6.5 K/cumm 4.5 1.9 2.8 3.2 Lymphocytes, abs 0.8 - 3.3 K/cumm 5.8 8.0 6.9 4.8 The following images were personally reviewed by me. US Kidney Complete Narrative: EXAMINATION: COMPLETE RENAL SONOGRAM HISTORY: Metastatic neuroendocrine [...] visualized. Bladder: The urinary bladder is decompressed. Impression: 1. No hydronephrosis. Previously described right-sided hydronephrosis has resolved. 2. Normal renal echogenicity. Dictated by: Greyson Anthony M.D. The radiology attending physician has personally reviewed this study, and had reviewed and/or edited this written report and agrees with it. Electronically signed by: Immanuel Bennett M.D. XR Abdomen Ap 1 Vw Narrative: EXAMINATION: Abdomen, one view. HISTORY: Check stent placement COMPARISON: CT 06/14/2024 Impression: A single view of the abdomen is [...] it. Electronically signed by: Brock Malik M.D. Assessment La Chung is a 73 y.o. female with PMH of hypothyroidism, neuroendocrine tumor s/p multiple rounds of treatment w/ mets to the liver, omentum, vaginal cuff, admitted for N/V with finding of ANNE-MARIE and R hydroureteronephrosis. She is now s/p R ureteral stent placement 06/16. Patient doing well this morning. Discussed that hematuria, frequency can be common side effects of stent and usually resolve in few days Should she continue to have urgency/frequency or stent discomfort, can try ditropan 5mg TID prn. RBUS performed today showing no hydronephrosis. KUB performed showing good stent position. Will plan for stent exchange in 3 months. Plan -Ditropan 5mg TID prn for stent discomfort -Continue to monitor creatinine - monitor UOP - she will require R stent exchange or removal in 3 months, Urology team to schedule -Urology will follow peripherally, please re-engage our team at the time of discharge so we can schedule the appropriate follow up Thank you for allowing us to participate in the care of this patient. For any questions or concerns, please page Urology through the file machine operator. Xochitl Knowles MD 06/18/2024 Cosigned by Mikey Barnes MD at 06/18/2024 6:09 PM THERMAL ENGINEER MAL ENGINEER MAL ENGINEER * Pre-Procedure Note - Dar Willett MD - 06/18/2024 2:31 PM THERMAL ENGINEER PRE-SEDATION ASSESSMENT/H&P Patient is a 73 y.o. female with chief complaint of metastatic neuroendocrine tumor. Procedure: CT-guided liver biopsy, transarterial chemo embolization Indications/History: 73-year-old woman with ileal neuroendocrine tumor metastatic to the liver, omentum, bone, and vaginal cuff with evidence of disease progression which made her ineligible for study cabozanitinib. PMH: Patient Active Problem List Diagnosis Date Noted Exertional dyspnea 06/17/2024 ANNE-MARIE (acute kidney injury) (HCC) and Mild right hydroureteronephrosis 06/14/2024 Vomiting 06/14/2024 HTN (hypertension) 06/14/2024 Anxiety 06/14/2024 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 06/13/2024 High risk medication use 01/31/2024 Hypothyroidism 09/12/2023 Proctitis 04/09/2022 Thrombocytopenia (HCC) 04/09/2022 Dehydration 03/15/2022 Depressive disorder 02/15/2022 Hypomagnesemia 10/16/2021 Hearing loss 08/30/2021 Vertigo 08/30/2021 Muscle weakness 08/16/2021 Nausea 08/11/2021 Hypophosphatemia 06/14/2021 Closed displaced fracture of head of right radius 11/20/2020 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, unspecified (HCC) 04/14/2020 Right flank pain 01/13/2020 Benign essential hypertension 01/13/2020 Blepharitis 01/13/2020 Cough 01/13/2020 Diarrhea 01/13/2020 Enthesopathy of knee 01/13/2020 Vitamin D deficiency 01/13/2020 Knee pain 01/13/2020 Low back pain 01/13/2020 Mass of ovary 01/13/2020 Osteoarthritis of knee 01/13/2020 Pure hypercholesterolemia 01/13/2020 Shoulder joint pain 01/13/2020 Epithelial hyperplasia 07/22/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) 05/14/2019 Acute blood loss anemia 04/17/2019 Hypocalcemia 04/14/2019 Stage 3b chronic kidney disease (HCC) 04/14/2019 Large bowel obstruction (CMS/HCC) (HCC) 04/12/2019 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) 03/02/2019 Neuro-endocrine carcinoma (HCC) 06/18/2018 Neuroendocrine tumor 01/06/2018 Mixed incontinence 10/23/2017 H/O actinic keratosis 07/05/2017 Personal history of diseases of skin or subcutaneous tissue 07/05/2017 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) 04/09/2017 Anemia 04/09/2016 Neuroendocrine carcinoma (CMS/HCC) (HCC) 10/24/2015 Obesity with body mass index 30 or greater 09/01/2015 Family history of malignant neoplasm of other organs or systems 06/29/2015 Family history of melanoma 06/29/2015 Abnormal findings on diagnostic imaging of breast 06/07/2014 History of Sedation/Anesthesia Complications: No History of Difficult Airway: No HISTORY PSH Past Surgical History: Procedure Laterality Date APPENDECTOMY 1992 BILATERAL SALPINGOOPHORECTOMY 10/03/2015 BIOPSY 10/03/2015 Peritoneal COLONOSCOPY 07/2015 CONTRAST INJECTION EVALUATION CENTRAL VENOUS ACCESS DEVICE N/A 06/12/2022 CONTRAST INJECTION EVALUATION CENTRAL VENOUS ACCESS DEVICE N/A 09/04/2022 EXAMINATION UNDER ANESTHESIA 05/30/2020 Examination under anesthesia and fulguration of pseudo epithelial hyperplasia EXPLORATORY LAPAROTOMY 04/13/2019 Exploratory laparotomy with creation of divided loop colostomy GALLBLADDER SURGERY unknown date IR PICC LINE PLACEMENT > 5 YEARS N/A 12/23/2018 IR PICC LINE PLACEMENT > 5 YEARS N/A 02/17/2019 IR PICC LINE PLACEMENT > 5 YEARS N/A 06/09/2019 IR PICC LINE PLACEMENT > 5 YEARS N/A 08/04/2019 OMENTECTOMY 10/03/2015 Partial PORT PLACEMENT CHEST >5 YEARS N/A 09/14/2021 RIGHT COLECTOMY 10/03/2015 Right colectomy STOMA REVISION 07/2019 Fulguration of parastomal hyperplasia TONSILLECTOMY 1955 Tonsillectomy - (Added by TW Conv) TOTAL ABDOMINAL HYSTERECTOMY 1992 appendix removed during this procedure TOTAL KNEE ARTHROPLASTY Left 2015 Social History: Social History Tobacco Use Smoking status: Never Smokeless tobacco: Never Substance and Sexual Activity Drug use: No Sexual activity: Defer Partners: Male control/protection: Post-menopausal Alcohol Use: Unknown (05/26/2024) AUDIT-C Frequency of Alcohol Consumption: Not on file Average Number of Drinks: Patient does not drink Frequency of Binge Drinking: Not on file Family History: Family History Problem Relation Age of Onset Other (old age) Mother Hearing loss Mother Hypertension Mother Heart disease Mother Suicidality Father Family history of suicide - (Added by TW Conv) Breast cancer Sister 61 Adenocarcinoma of breast - (Added by TW Conv) Cancer Sister Diabetes Sister Hypertension Sister Hypertension Brother Melanoma Daughter 30 Anesthesia problems Grandchild questionable malignant hyperthermia, no work up at this time REVIEW OF SYSTEMS: Review of systems per HPI and otherwise all other systems are negative MEDICATIONS Current Meds: Current Facility-Administered Medications: acetaminophen (TYLENOL) tablet 650 mg, 650 mg, oral, Q6H PRN, Miguel Angel Martinez MD, 650 mg at 06/17/242047 amLODIPine (NORVASC) tablet 5 mg, 5 mg, oral, Daily, Nasir Lyons MD, 5 mg at 06/18/24921 Carrier Fluids for Secondary Infusion - 0.9% Sodium Chloride, 30 mL, intravenous, PRN, Bradley Lyons MD DULoxetine (CYMBALTA) extended release capsule 30 mg, 30 mg, oral, Daily, Nasir Lyons MD, 30 mg at 06/18/24921 [Held by Provider] enoxaparin (LOVENOX) syringe 30 mg, 30 mg, subcutaneous, Daily-2099, Nasir Lyons MD, 30 mg at 06/17/242041 heparin 10 unit/mL flush 50 Units, 5 mL, intra-catheter, PRN, Miguel Angel Martinez MD, 50 Units at 06/18/24 0130 HYDROcodone-acetaminophen (NORCO) 5-325 mg per tablet 1 tablet, 1 tablet, oral, Q4H PRN, Nasir Lyons MD hydrOXYzine (ATARAX) tablet 25 mg, 25 mg, oral, Nightly PRN, Bobby Degroot MD, 25 mgat 06/14/242111 levothyroxine (SYNTHROID) tablet 100 mcg, 100 mcg, oral, Daily - 0600, Nasir Lyons MD, 100 mcg at 06/18/24 0608 lidocaine (LIDODERM) 5 % patch 2 patch, 2 patch, transdermal, Q24H, Nasir Lyons MD lidocaine-prilocaine (EMLA) 2.5-2.5 % cream, , topical, PRN, Nasir Lyons MD [Held by Provider] losartan (COZAAR) tablet 25 mg, 25 mg, oral, Daily, Nasir Lyons MD magnesium sulfate 4 g/100 mL in water (premix) 4 g, 4 g, intravenous, Q4H PRN, Kolton Brooks MD magnesium sulfate 6 g in sodium chloride 0.9% 250 mL IVPB, 6 g, intravenous, Q4H PRN, Kolton Brooks MD ondansetron (ZOFRAN) injection 4 mg, 4 mg, intravenous, Q6H PRN, Dana Barajas MD oxyBUTYnin (DITROPAN) tablet 5 mg, 5 mg, oral, TID PRN, Dana Barajas MD pantoprazole DR (PROTONIX) extended release tablet 40 mg, 40 mg, oral, Daily, Dana Barajas MD, 40 mg at 06/18/24 0922 potassium chloride ER (KLOR-CON) extended release tablet 40 mEq, 40 mEq, oral, Q2H PRN, Kolton Brooks MD, 40 mEq at 06/18/24 0608 prochlorperazine (COMPAZINE) injection 5 mg, 5 mg, intravenous, Q6H PRN, Dana Barajas MD sodium chloride 0.9% flush 0.5-20 mL, 0.5-20 mL, intra-catheter, Q8H MAUREEN, Nasir Lyons MD,10 mL at 06/17/242042 sodium chloride 0.9% flush 0.5-20 mL, 0.5-20 mL, intra-catheter, PRN, Nasir Lyons MD Facility-Administered Medications Ordered in Other Encounters: L-arginine 1.25%/L-lysine 1.25% infusion 1,000 mL, 1,000 mL, intravenous, Continuous, LaurenE. Amaya MD Home Meds: HOME MEDICATIONS : diphenoxylate-atropine (LOMOTIL) 2.5-0.025 mg per tablet levothyroxine (SYNTHROID) 100 mcg tablet simvastatin (ZOCOR) 20 mg tablet 0.9 % sodium chloride (INV-BJ sodium chloride 0.9%) injection 0.9 % sodium chloride (sodium chloride 0.9%) 0.9% infusion amLODIPine (NORVASC) 5 mg tablet amoxicillin 500 mg capsule ascorbic acid, vitamin C, 500 mg capsule cholecalciferol (VITAMIN D-3) 1,000 unit clotrimazole-betamethasone (LOTRISONE) cream coenzyme [id number] E 100-5 mg-unit capsule denosumab (Xgeva) 120 mg/1.7 mL (70 mg/mL) injection DULoxetine DR (CYMBALTA) 30 mg capsule ergocalciferol (VITAMIN D) 50,000 unit capsule fluticasone propionate (FLONASE) 50 mcg/actuation nasal spray heparin 100 unit/mL solution lidocaine-prilocaine (lidocaine-prilocaine) cream loperamide HCl (IMODIUM A-D ORAL) LORazepam (ATIVAN) 0.5 mg tablet losartan (COZAAR) 25 mg tablet octreotide (SandoSTATIN) 100 mcg/mL injection ondansetron (ZOFRAN) 8 mg tablet ostomy supplies misc oxyBUTYnin (DITROPAN) 5 mg tablet prochlorperazine (COMPAZINE) 10 mg tablet sodium chloride 0.9 % solution Allergies: Allergies Allergen Reactions Morphine Blisters and Rash Ezetimibe-Simvastatin Muscle pain, Other (See comments) and Unknown Muscle weakness Ramipril Cough Vitals: Vitals: 06/17/24 1648 06/17/24 1934 06/18/24 0432 06/18/24 0823 BP: 144/57 138/46 137/57 136/49 BP Location: Right arm Right arm Right arm Right arm Patient Position: HOB 30 degrees Lying Sitting Pulse: 73 76 76 80 Resp: 18 18 18 18 Temp: 36.8 ??C (98.2 ??F) 36.7 ??C (98 ??F) 36.6 ??C (97.8 ??F) 36.3 ??C (97.3 ??F) TempSrc: Oral Oral Oral Temporal SpO2: 95% 94% 96% 95% Weight: Height: LABS Pertinent Labs: Recent Labs Lab Units 06/18/2413606/17/24 0125 06/16/24 0050 WBC K/cumm 9.0 11.3* 11.2* HEMOGLOBIN g/dL 10.2* 11.4* 11.0* HEMATOCRIT % 32.0* 35.1* 35.0* PLATELETS K/cumm 155 156 149* Recent Labs Lab Units 06/18/2413606/17/24 0125 06/16/24 0050 SODIUM mmol/L 141 142 141 POTASSIUM PLASMA mmol/L 3.2* 3.6 4.0 CHLORIDE mmol/L 107 107 108 CO2 mmol/L 26 22 22 BUN SERUM mg/dL 14 15 17 CREATININE mg/dL 1.62* 1.65* 1.97* CALCIUM mg/dL 8.1* 8.3* 8.7 AST Units/L 24 25 26 ALT Units/L 11 11 9 IMAGING Reviewed PERTINENT PHYSICAL EXAM General: alert and conversant in NAD Chest: non-labored breathing on room air Cardiac: regular rate Psych: appropriate mood and affect Assessment: Proceed with CT-guided liver biopsy and trans arterial chemo embolization Airway Exam: normal ASA Classification:Class 3: Patient with severe systemic disease Sedation Plan: Min Sedation Adjunctive Procedures: None NONE PO status: Last PO: NPO since midnight MAL ENGINEER * Plan of Care - Nohelia Moore RN - 06/18/2024 4:34 AM CST Goals: Clinical Goals for the Shift: VSS; Safety; Comfort Summary: VSS. PRN tylenol administered x1 for discomfort. Labs drawn and sent - K 3.2, replaced perPO. Patient still having hematuria. Patient resting in bed. Safety maintained. Care plan ongoing. MAL ENGINEER * Plan of Care - Sis Pedraza RN - 06/17/2024 7:36 PM CST VSS. Patient denies pain. TTE completed. Plan of care ongoing. Goals: Clinical Goals for the Shift: VSS; Safety; Comfort Problem: Discharge Planning Goal: Understanding discharge needs will improve Outcome: Progressing Problem: Respiratory Goal: Achieves optimal ventilation and oxygenation Outcome: Progressing MAL ENGINEER * Assessment & Plan Note - Dana Barajas MD - 06/17/2024 3:30 PM THERMAL ENGINEER Associated Problem(s): Exertional dyspnea Reports noting increased exertional dyspnea over last year or so. Nt-probnp elevated on admission - TTE with grade 1 diastolic dysfunction, thickened LV but otherwise normal systolic function EF 66% and normal valvular function MAL ENGINEER MAL ENGINEER MAL ENGINEER * Plan of Care - Callie Gama RN - 06/17/2024 1:37 PM CST 06/17/24 1336 Discharge Planning Support System Spouse/Significant Other;Children Anticipated discharge level of care Private residence Does the patient need discharge transport arranged? No Post Acute Care Plan Home Care Services N/A OP Services N/A DME N/A Post Acute Care Facility N/A Prior to Admission Home Care Services No Discharge Planning Patient expects to be discharged to Private residence CM Progression of Care Update Per Medical Chart/Rounds/IDR: Patient post ureteral stent placement being monitored and is not medically stable for discharge. ADD: 06/18/24 Discharge Barriers: None noted Education Needs Identified (plan):None noted F/U Appointments: To be made closer to discharge Patient's Identified Problem/Goal Problem:?Ensure acute medical needs are met and that patient has a safe discharge plan. Goal:?Secure a discharge plan that patient/family are agreeable with?and ensure patient has continuum of care. Patient and/or family are agreeable with plan. gaming manager will continue to follow and assist with discharge planning as needed. If any further discharge needs arise, please contact the covering lining caser. MAL ENGINEER * Consults, Subsequent - File, Susana Palumbo NP - 06/17/2024 9:00 AM THERMAL ENGINEER Images from the original note were not included. Urology Consult Note Subjective Chief Complaint:R hydroureteronephrosis Requesting provider: Juan History of Present Illness: La Chung is a 73 y.o. female with PMH of hypothyroidism, neuroendocrine tumor s/p multiple rounds of treatment w/ mets to the liver, omentum, vaginal cuff, admitted for N/V with finding of ANNE-MARIE and R hydroureteronephrosis for which urology consulted. Patient presented with several day complaint of N/V, R flank pain. Found to have an ANNE-MARIE of 2(baseline 1.3-1.5) with CT scan showing enlarged mets to liver and enlarged retroperitoneal lymphadenopathy. R kidney with extra renal pelvis, proximal ureter appears to be tethered to retroperitoneal lymph nodes with mild R hydroureteronephrosis. Interval History Patient underwent R ureteral stent placement yesterday afternoon. She appears well this morning andis without complaints. Reports hematuria(light aguila colored with very small clot noted) and some frequency but has also been drinking more. Cr today 1.65. 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, omentum, bone, and vaginal cuff, T4N0 s/p colectomy/BSO/partial omentectomy 09/2015 HL (hearing loss) 2012 Hypercholesteremia Hypertension Motion sickness Obesity PONV (postoperative nausea and vomiting) controlled with IV medication Status post chemotherapy 09/2019 immunotherapy Status post radiation therapy 09/2019 The patient's past surgical history is notable for: Past Surgical History: Procedure Laterality Date APPENDECTOMY 1992 BILATERAL SALPINGOOPHORECTOMY 10/03/2015 BIOPSY 10/03/2015 Peritoneal COLONOSCOPY 07/2015 CONTRAST INJECTION EVALUATION CENTRAL VENOUS ACCESS DEVICE N/A 06/12/2022 CONTRAST INJECTION EVALUATION CENTRAL VENOUS ACCESS DEVICE N/A 09/04/2022 EXAMINATION UNDER ANESTHESIA 05/30/2020 Examination under anesthesia and fulguration of pseudo epithelial hyperplasia EXPLORATORY LAPAROTOMY 04/13/2019 Exploratory laparotomy with creation of divided loop colostomy GALLBLADDER SURGERY unknown date IR PICC LINE PLACEMENT > 5 YEARS N/A 12/23/2018 IR PICC LINE PLACEMENT > 5 YEARS N/A 02/17/2019 IR PICC LINE PLACEMENT > 5 YEARS N/A 06/09/2019 IR PICC LINE PLACEMENT > 5 YEARS N/A 08/04/2019 OMENTECTOMY 10/03/2015 Partial PORT PLACEMENT CHEST >5 YEARS N/A 09/14/2021 RIGHT COLECTOMY 10/03/2015 Right colectomy STOMA REVISION 07/2019 Fulguration of parastomal hyperplasia TONSILLECTOMY 1956 Tonsillectomy - (Added by TW Conv) TOTAL ABDOMINAL HYSTERECTOMY 1991 appendix removed during this procedure TOTAL KNEE ARTHROPLASTY Left 2014 Objective In/Outs: I/O last 3 completed shifts: In: 2685 [P.O.:680; I.V.:2004] Out: 1652 [Urine:1650; Blood:2] I/O this shift: In: - Out: 25 [Urine:25] Physical Exam: Vitals: 06/16/24 2100 06/16/24 2221 06/17/24 0123 06/17/24 0802 BP: (!) 130/43 (!) 145/43 (!) 143/43 142/57 BP Location: Right arm Right arm Right arm Right arm Patient Position: Lying Lying Lying Pulse: 101 88 78 79 Resp: 18 18 18 18 Temp: 36.4 ??C (97.5 ??F) 36.2 ??C (97.2 ??F) 36.5 ??C (97.7 ??F) TempSrc: Oral Oral Oral SpO2: 90% 96% 94% 95% Weight: Height: General: In no acute distress Pulmonary: Non-labored breathing Cardiovascular: Well perfused Abdomen: soft, non tender, Non distended : voiding spontaneously, urine aguila red with very small clot noted Psych: Appropriate and cooperative Labs/Imaging: Chem/LFT Lab History Latest Ref Rng & Units 06/14/2024 00:23 06/15/2024 01:26 06/16/2024 00:50 06/17/2024 01:25 Labs-Chem/LFT Sodium 135 - 145 mmol/L 139 139 141 142 Creatinine 0.60 - 1.10 mg/dL 1.79 1.94 1.97 1.65 Bilirubin, total 0.1 - 1.2 mg/dL 0.4 0.6 0.8 0.6 AST 10 - 45 Units/L 30 25 26 25 ALT 7 - 45 Units/L 8 11 9 11 Alk phos 40 - 130 Units/L 79 71 71 75 CrCl- Actual Body Weight (Cockcroft-Gault) 33.6 31 29.2 34.9 Hematology Lab History Latest Ref Rng & Units 06/14/2024 00:23 06/15/2024 01:26 06/16/2024 00:50 06/17/2024 01:25 Labs - Hematology WBC 3.8 - 9.9 K/cumm 9.8 10.5 11.2 11.3 Total Hb, POC 11.9 - 15.5 g/dL 11.6 10.9 11.0 11.4 Hct 35.6 - 45.5 % 36.6 34.1 35.0 35.1 Plt 150 - 400 K/cumm 145 149 149 156 Neutrophil abs 1.5 - 6.5 K/cumm 3.8 4.5 1.9 2.8 Lymphocytes, abs 0.8 - 3.3 K/cumm 2.4 5.8 8.0 6.9 The following images were personally reviewed by me. FL Fluoroscopy < 1 Hour The images from this study are not interpreted by Radiology. Please refer to the physician's procedure / OR operative note. Assessment La Chung is a 73 y.o. female with PMH of hypothyroidism, neuroendocrine tumor s/p multiple rounds of treatment w/ mets to the liver, omentum, vaginal cuff, admitted for N/V with finding of ANNE-MARIE and R hydroureteronephrosis. Difficult to discern looking at imaging if R ureter tethered at lymph nodes is causing hydroureteronephrosis as can trace ureter down to level of bladder and appears decompressed or if extra renal pelvis is causing appearance of hydroureteronephrosis. Patient does have worsening ANNE-MARIE with flank pain, nausea. She is now s/p R ureteral stent placement 06/16. Patient doing well this morning. Discussed that hematuria, frequency can be common side effects of stent and usually resolve in few days. Should she continue to have urgency/frequency or stent discomfort, can try ditropan 5mg TID prn. Please obtain RBUS and KUB tomorrow to evaluate stent placement/improvement in hydroureteronephrosis. Plan -RBUS and KUB 06/18 -Ditropan 5mg TID prn for stent discomfort -Continue to monitor creatinine - strict in/outs -Urology will follow Thank you for allowing us to participate in the care of this patient. For any questions or concerns, please page Urology through the file machine operator. Susana Tate NP 06/17/2024 MAL ENGINEER * Plan of Care - Nohelia Moore RN - 06/17/2024 5:56 AM CST Goals: Clinical Goals for the Shift: VSS, rest, comfort, safety Summary: VSS. No complaints of pain. Labs drawn and sent - no replacements needed. Good urine output throughout night. Patient resting comfortably in bed. Safety maintained. Care plan ongoing. MAL ENGINEER * Plan of Care - Angeli Spivey RN - 06/16/2024 7:14 PM CST Goals: Clinical Goals for the Shift: VSS, rest, comfort, safety Summary: VSS pt A&Ox4 on RA. Pt made NPO in morning for Urology procedure. Pt in OR for most of afternoon. Pt returned to floor at 1845, post OP vitals initiated. Pt resting in bed with safety measures inplace. MAL ENGINEER * Op Note - Mela Dejesus MD - 06/16/2024 2:37 PM CST Operative Report SURGEON: Mela Dejesus MD SURGICAL TEAM: Funeral Assistant: Amara Hernandez RN Scrub: Alessandra Petersen RN DATE OF SURGERY : 06/16/2024 PREOPERATIVE DIAGNOSIS: Pre-op Diagnosis * ANNE-MARIE (acute kidney injury) (HCC) [N17.9] * 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 [N13.1] POSTOPERATIVE DIAGNOSIS: Post-op Diagnosis * ANNE-MARIE (acute kidney injury) (HCC) [N17.9] * 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 [N13.1] PROCEDURE: CYSTOSCOPY, PLACEMENT STENT - URETERAL (R), PYELOGRAM - RETROGRADE (R) INDICATION FOR PROCEDURE: Mrs. Chung is a 73 yr old female with a hx of neuroendocrine tumor s/p chemotherapy with metastaticdisease admitted for failure to thrive with nausea, emesis and ANNE-MARIE and found to have new right hydroureteronephrosis. She has had worsening Scr over the last couple days and therefore we recommended stent placement. The risks, benefits, alternatives and complications were discussed. ANESTHESIA: General IMPLANTS: Nothing was implanted during the procedure OPERATIVE DETAILS Estimated Blood Loss: No blood loss documented. Intraoperative Fluids: See anesthesia records Blood/Blood Products Transfused: None Specimens: No specimens collected during this procedure. PROCEDURE: After informed consent was obtained, the patient was taken to the operating room and administered ageneral anesthetic. The patient was placed in Lithotomy position and administered a general anesthetic. The patient was prepped and draped in the usual sterile fashion for cystoscopy and ureteroscopy. All members of the operating team were in agreement for the timeout regarding the procedure. The patient was administered antibiotics prior to the start of the procedure. We inserted the rigid cystoscope into the bladder and performed a careful cystoscopy. No tumors, erythema, or other lesions were observed in the bladder or urethra. We advanced a 5 greenlandic ureteral access catheter into the right ureteral orifice just to the level of the distal ureter. A retrograde pyelogram was performed which revealed a proximal ureteral obstruction with pyelovenous backflow and hydronephrosis proximal to the obstruction. Through the catheter we advanced a sensor wire to the level of the kidney under fluoroscopic guidance. Over the wire, we advanced a 6 greenlandic x 26 cm ureteral stent. Removal of the wire part way revealed a good curl in the renal pelvis proximally. The strings were removed and the wire was fully removed, leaving a good curl distally in the bladder as visualized cystoscopically. The bladder was drained and the cystoscope was removed. The patient was awakened and taken to the recovery room in good condition. Operative findings: Hydronephrosis proximal to obstruction Stent placed proximal to obstruction Complications: none Condition on Discharge from the operating room was stable Mela Dejesus MD Date: 06/16/2024 Time: 3:16 PM TEACHING ATTESTATION : I was present and directly participated in the entire procedure (including opening and closing). Plan - ultrasound in 2 days with KUB MAL ENGINEER MAL ENGINEER * Plan of Care - Nohelia Moore RN - 06/16/2024 4:36 AM CST Goals: Clinical Goals for the Shift: VSS, comfort, safety, rest, N&V control Summary: BP elevated during shift - MD notified, no new orders. All other vitals stable. Labs drawnand sent - no replacements needed. No complaints of pain. IV fluids continue at 100 mL/hour. Patient resting in bed. Safety maintained. Care plan ongoing. MAL ENGINEER * Plan of Care - Angeli Spivey RN - 06/15/2024 6:41 PM CST Goals: Clinical Goals for the Shift: VSS, comfort, safety, rest, N&V control Summary: VSS, pt A&Ox4 on RA. Tylenol given once for pain per order. During morning meds, R chest port would not draw back blood after flushing, MD notified. Heparin flush instilled per order, which was unsuccessful in giving blood return, MD notified. Alteplase instilled in line per order, when alteplase was drawn back out of port, blood return was noted. Pt was started on NS 100 mL/hr per order. Pt started on regular diet, tolerating well. No complaints of N&V. Pt resting in bed with safety measures in place. MAL ENGINEER * Hospital Course - Miguel Angel Martinez MD - 06/15/2024 3:43 PM CST ANNE-MARIE (acute kidney injury) (HCC) and Mild right hydroureteronephrosis Cr b/l is 1.3-1.5. It is 2 -> 1.7 in the ED. She has had very low PO intake for 24h. She has haddecreased PO intake for a few months (and receives IVF infusion outpatient). CT a/p shows mild R hydroureteronephrosis, which as per report could be from a partial obstruction from lymphadenopathy.Ddx: 1) Seems pre-renal based on history, rapid improvement w/ IVF, the hydro is noted to be mild and u nilateral. 2) of course, obstructive etiology is on the Ddx. 3) presentation also consistent w/ transient R stone (passed) . Urinalysis not suggestive of infection. Received IV fluid bolus followed by maintenance fluid. Urology c/s (to weigh in on significance of the ureteronephrosis +/- stent). Recommending aggressive hydration and oral intake and monitoring kidney function over time. If condition does not improve or worsens then OR at that time. Vomiting Onset 24h prior to this note. It is triggered by food, and happens more or less together w/ PO intake. No particular exacerbation of pain w/ it. It is non bloody, but as per patient (not witnessed), it is bilious (yellowish). No diarrhea (ostomy output is as usual or slightly firmer than usual).CT a/p w/ contrast in the ED with NO report of obstruction and no colitis. It does show mildly larger mets to the liver. Lipase normal. Etiology: unclear. No obstruction, No colitis. Might be a gastroenteritis or other irritation. Might also be related to the R ureteral process. Started on PPI, antiemetics and pain control. Nausea/vomiting improving. Right flank pain 3 days of R flank/CVA pain. UA not c/f infection. Might be from mild obstruction vs could have lavern stone which has passed. CT abdomen shows new mild hydroureteronephrosis possible secondary to partial obstruction from retroperitoneal adenopathy -Pain control w/ tylenol, lido patch, ok for low dose opioids. Anxiety She reports taking duloxetine 30 daily for over a year. Will continue that HTN (hypertension) Home amlodipine Hypothyroidism Home synthroid Neuroendocrine tumor Of the ileum, w/ mets to the liver, omentum, bone, vaginal cuff - [facility] c/s - On octreotide (monthly) and a clinical trial - Has upcoming liver TACE on Sat MAL ENGINEER * Initial Assessments - Callie Gama RN - 06/15/2024 3:18 PM THERMAL ENGINEER CM Initial Assessment Interview Note Information Obtained From: Patient (06/15/24 150) Admission Source: ED from home Impression: 73 y/o female with PMH of HTN, hypothyroidism, neuroendocrine tumor with liver mets admitted with N/V and mild right hydronephrosis. Plan Includes: Anticipate patient will discharge to home when medically stable. CM to follow for d/c planning and referrals as needed. Primary Source of Transportation: Does the patient need discharge transport arranged?: No (06/15/24 1508) Health Insurance Coverage: Medicare A/B, AARP Supplement Prescription Coverage: Yes Pharmacy: [id number] - [place], [place] - [address] [facility] [phone] [facility] - [place], [place] - [address] [facility] [address] [facility] [id number] Primary Care Provider: Julio César Briseno MD Prior to Admission: Functional Status: Independent with ADLs Primary Caregiver: Self Support System: Spouse/Significant Other, Children Home Care Services: No Outpatient Services: No Durable Medical Equipment: Cane (single prong) Living Arrangements: Spouse/significant other Type of Residence: Private residence Steps in home?: Yes, Outside of home Number of steps outside: 2 steps (06/15/24 150) Potential discharge needs include: Home Health: None (06/15/24 150) OP Services: No Dialysis: No Behavioral Health Services: Behavioral Health Services: No (06/15/24 150) Anticipated Level of Care: Anticipated discharge level of care: Private residence Pt/Family agrees with Anticipated Level of Care: Yes (06/15/24 150) Patient expects to be Discharged to: Private residence, (06/15/24 150) Additional Information: CM met with patient at bedside to complete initial assessment. Address and phone number verified with face sheet. Patient lives in a private residence with her and reports being independent with ADLs. Denies HHC or DME for daily use. Has several canes if needed. Patient's Identified Problem/Goal Problem: Ensure acute medical needs are met and that patient has a safe discharge plan. Goal: Secure a discharge plan that patient/family are agreeable with and ensure patient has continuum of care. Case management will follow for discharge planning and send referrals as needed. Goals include: To assure continuity of care, To maximize coping skills, To assure patient is in a safe environment and To assure access to community resources. Plan includes: 1. Collaboration with Patient, Provider, Direct Care Nurse, Learning Facilitator, and other members of theHealth Care Team to assure needed interventions completed. 2. Return patient to optimal level of self-care post discharge. 3. Data Entry Processor will follow for Discharge Planning - interventions as needed 4. Anticipated level of care at discharge 5. Planned Discharge Disposition Callie Gama RN MAL ENGINEER * Plan of Care - Nati Rousseau RN - 06/15/2024 6:34 AM CST Goals: Clinical Goals for the Shift: VSS, comfort, safety Summary: Pt's VSS. Vomitted a few times at beginning of shift, zofran x1. Still vomitting, made aware, EKG done compazine added given x1. Pt also having anxiety requesting MD norma made aware, atarax ordered and given x1. NPO since midnight. MAL ENGINEER * Assessment & Plan Note - Nasir Lyons MD - 06/14/2024 3:48 PM THERMAL ENGINEER Associated Problem(s): Anxiety She reports taking duloxetine 30 daily for over a year. Will continue that MAL ENGINEER * Assessment & Plan Note - Nasir Lyons MD - 06/14/2024 3:47 PM THERMAL ENGINEER Associated Problem(s): Hypothyroidism Home synthroid MAL ENGINEER * Assessment & Plan Note - Dana Barajas MD - 06/14/2024 3:47 PM THERMAL ENGINEER Associated Problem(s): HTN (hypertension) Home amlodipine. Losartan held throughout admission due to ANNE-MARIE and blood pressure reasonably controlled on amlodipine. Can consider restarting outpatient if uptrend noted MAL ENGINEER MAL ENGINEER * Assessment & Plan Note - Dana Barajas MD - 06/14/2024 3:47 PM THERMAL ENGINEER Associated Problem(s): Neuroendocrine tumor Of the ileum, w/ mets to the liver, omentum, bone, vaginal cuff - [facility] c/s - On octreotide (monthly) and a clinical trial - s/p planned liver TACE 06/19 MAL ENGINEER MAL ENGINEER MAL ENGINEER MAL ENGINEER * Assessment & Plan Note - Dana Barajas MD - 06/14/2024 3:46 PM THERMAL ENGINEER Associated Problem(s): Right flank pain 3 days of R flank/CVA pain. UA not c/f infection. Might be from mild obstruction vs could have lavern stone which has passed. CT abdomen shows new mild hydroureteronephrosis possible secondary to partial obstruction from retroperitoneal adenopathy -Pain control w/ tylenol, lido patch, ok for low dose opioids. -Management as per above -pain improved with stent placement MAL ENGINEER MAL ENGINEER MAL ENGINEER * Assessment & Plan Note - Dana Barajas MD - 06/14/2024 3:45 PM THERMAL ENGINEER Associated Problem(s): ANNE-MARIE (acute kidney injury) (HCC) and Mild right hydroureteronephrosis Cr b/l is 1.3-1.5. It is 2 -> 1.7 in the ED. She has had very low PO intake for 24h. She has haddecreased PO intake for a few months (and [...] hematuria post stent which has now resolved MAL ENGINEER MAL ENGINEER MAL ENGINEER MAL ENGINEER MAL ENGINEER MAL ENGINEER MAL ENGINEER * Assessment & Plan Note - Dana Barajas MD - 06/14/2024 3:42 PM THERMAL ENGINEER Associated Problem(s): Vomiting Likely related to ANNE-MARIE and R ureteral process. -Improved and tolerating oral intake -PPI IV BID->oral BID for now. -Nausea control. Pain control. MAL ENGINEER MAL ENGINEER MAL ENGINEER MAL ENGINEER * ED Re-evaluation Note - Sabrina Riggs DO - 06/14/2024 6:48 AM THERMAL ENGINEER ED Re-evaluation TRANSITION OF CARE: Sabrina Delgado DO, am taking signout from off-going resident. I have reviewed all pertinent vital signs, allergies, and history available in the chart. Summary: 73 y.o. female h/o HTN, GERD, hypothyroidism, and neuroendocrine tumor of the ileum with metastasis to the liver, omentum, bone, and vaginal cuff diagnosed in 2016 status post exploratory lap, bilateral salpingo-oophorectomy, partial omentectomy and right colectomy who presents to the ED complaining of intractable nausea and vomiting with associated upper abdominal pain that started earlier today. CT found to have increased cancer burden with hydronephrosis/hydroureter on the right tethered to retroperitoneal adenopathy. Indicates worsening renal fx -> could be indication for percutaneous nephrostomy diversion for which IR can be consult in AM which can be done on floor Pending: NTD Dispo: admit to oncology ED Course as of 06/14/24 1411 Time: 06/14 0031 Comment: Attending Attestation I have seen and examined this patient, I have discussed/reviewed the history, physical exam and assessment with the resident. We are in agreement with treatment plan except as I have noted, and I agree with their documentation except as noted. Briefly, this is a 73-year-old female with a history of metastatic neuroendocrine tumor of the abdomen on octreotide infusions (last 5 days ago) presenting today with concern for elevated blood pressure and an ANNE-MARIE. She is reporting right flank pain and has had nausea and vomiting today. She has nogas or stool in her ostomy bag which was last emptied at about 4:00 p.m.. She has mild tenderness across the upper abdomen with no flank tenderness to percussion and no midline tenderness in the back. I have concern for small bowel obstruction primarily, we will get CT scan. ANNE-MARIE is mild (baseline of 1.4 which has slowly increased to 1.7 and eventually 2.0) - diagnostic yield of CT scan with contrast outweighs the risk to this patient. By: Stu Huang MD Time: 06/14 4273 Comment: CT read shows increased cancer burden with hydronephrosis/hydroureter on the right tethered to retroperitoneal adenopathy - there is no kidney stone. With her progressively worsening renal function this could be an indication for percutaneous nephrostomy diversion - will admit and IR can see in the AM. By: Stu Huang MD Time: 06/14 1410 Comment: Discussed CT findings with the pt and explained how IR will see her on the floor. By: Sabrina Riggs DO Prabakar, Ashley Christen, DO Resident 06/14/24 0702 MAL ENGINEER * ED Pre-Arrival Note - Mary Alva RN - 06/13/2024 6:30 PM THERMAL ENGINEER Pre-Arrival Note Pt coming from cancer care clinic d/t hypertension. Pt presented with nausea and vomiting. Hypertensive to 220's. Coming to ED for further eval. Mary Alva RN MAL ENGINEER documented in this encounter Plan of Treatment Pending Results Name Type Priority Associated Diagnoses Date /Time Pro B-type natriuretic peptide Lab STAT 06/14/2024 12:23 AM THERMAL ENGINEER Scheduled Orders Name Type Priority Associated Diagnoses Orde r Schedule Pro B-type natriuretic peptide Lab STAT Once for 1 Occur rences starting 06/14/2024 until 06/14/2024 documented as of this encounter Procedures Procedure Name Priority Date/Time Associated Diagnosis Comments EGFR Routine 06/20/2024 12:59 AM THERMAL ENGINEER DIFFERENTIAL AUTO Routine 06/20/2024 12:59 AM THERMAL ENGINEER CBC WITH AUTO DIFFERENTIAL Routine 06/20/2024 12:59 AM THERMAL ENGINEER MAGNESIUM Routine 06/20/2024 12:59 AM THERMAL ENGINEER HEPATIC FUNCTION PANEL Routine 06/20/2024 12:59 AM THERMAL ENGINEER BASIC METABOLIC PANEL Routine 06/20/2024 12:59 AM THERMAL ENGINEER EMBOLIZATION ORGAN ISCHEMIA OR INFARCTION Schedule Routine, Read Routine (OP Routine) 06/19/2024 11:17 AM THERMAL ENGINEER 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) BIOPSY LIVER Schedule Routine, Read Routine (OP Routine) 06/19/2024 9:00 AM THERMAL ENGINEER 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) SURGICAL PATHOLOGY Routine 06/19/2024 8: 53 AM THERMAL ENGINEER ANNE-MARIE (acute kidney injury) (HCC) 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 History of malignant neuroendocrine tumor 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) EGFR Routine 06/19/2024 1:56 AM THERMAL ENGINEER DIFFERENTIAL AUTO Routine 06/19/2024 1:5 6 AM THERMAL ENGINEER CBC WITH AUTO DIFFERENTIAL Routine 06/19/2024 1:56 AM THERMAL ENGINEER MAGNESIUM Routine 06/19/2024 1:56 AM THERMAL ENGINEER HEPATIC FUNCTION PANEL Routine 06/19/2024 1:56 AM THERMAL ENGINEER BASIC METABOLIC PANEL Routine 06/19/2024 1:56 AM THERMAL ENGINEER US KIDNEY COMPLETE IP Routine 06/18/2024 3: 53 PM THERMAL ENGINEER XR ABDOMEN AP 1 VIEW IP Routine 06/18/2024 5:54 AM THERMAL ENGINEER EGFR Routine 06/18/2024 1:37 AM THERMAL ENGINEER CBC WITH AUTO DIFFERENTIAL Routine 06/18/2024 1:37 AM THERMAL ENGINEER MANUAL DIFFERENTIAL Routine 06/18/2024 1 :37 AM THERMAL ENGINEER MAGNESIUM Routine 06/18/2024 1:37 AM THERMAL ENGINEER HEPATIC FUNCTION PANEL Routine 06/18/2024 1:37 AM THERMAL ENGINEER BASIC METABOLIC PANEL Routine 06/18/2024 1:37 AM THERMAL ENGINEER TRANSTHORACIC ECHO (TTE) COMPLETE W DOPPLER/CF W CONTRAST Routine 06/17/2024 4:25 PM THERMAL ENGINEER EGFR Routine 06/17/2024 1:25 AM THERMAL ENGINEER CBC WITH AUTO DIFFERENTIAL Routine 06/17/2024 1:25 AM THERMAL ENGINEER MANUAL DIFFERENTIAL Routine 06/17/2024 1 :25 AM THERMAL ENGINEER MAGNESIUM Routine 06/17/2024 1:25 AM THERMAL ENGINEER HEPATIC FUNCTION PANEL Routine 06/17/2024 1:25 AM THERMAL ENGINEER BASIC METABOLIC PANEL Routine 06/17/2024 1:25 AM THERMAL ENGINEER FL FLUOROSCOPY < 1 HOUR IP Routine 06/16/2024 3:37 PM THERMAL ENGINEER PYELOGRAM - RETROGRADE 06/16/2024 3:03 PM THERMAL ENGINEER ANNE-MARIE (acute kidney injury) (HCC) 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 PLACEMENT STENT - URETERAL 06/16/2024 3:03 PM THERMAL ENGINEER ANNE-MARIE (acute kidney injury) (HCC) 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 CYSTOSCOPY 06/16/2024 3:03 PM THERMAL ENGINEER ANNE-MARIE (acute kidney injury) (HCC) 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 EGFR Routine 06/16/2024 12:50 AM THERMAL ENGINEER CBC WITH AUTO DIFFERENTIAL Routine 06/16/2024 12:50 AM THERMAL ENGINEER MANUAL DIFFERENTIAL Routine 06/16/2024 12:50 AM THERMAL ENGINEER MAGNESIUM Routine 06/16/2024 12:50 AM THERMAL ENGINEER HEPATIC FUNCTION PANEL Routine 06/16/2024 12:50 AM THERMAL ENGINEER BASIC METABOLIC PANEL Routine 06/16/2024 12:50 AM THERMAL ENGINEER EGFR Routine 06/15/2024 1:26 AM THERMAL ENGINEER CBC WITH AUTO DIFFERENTIAL Routine 06/15/2024 1:26 AM THERMAL ENGINEER MANUAL DIFFERENTIAL Routine 06/15/2024 1 :26 AM THERMAL ENGINEER MAGNESIUM Routine 06/15/2024 1:26 AM THERMAL ENGINEER HEPATIC FUNCTION PANEL Routine 06/15/2024 1:26 AM THERMAL ENGINEER BASIC METABOLIC PANEL Routine 06/15/2024 1:26 AM THERMAL ENGINEER ECG 12-LEAD Routine 06/14/2024 8:[address] ABDOMEN PELVIS W CONTRAST ED 06/14/2024 2:26 AM THERMAL ENGINEER EGFR STAT 06/14/2024 12:23 AM THERMAL ENGINEER DIFFERENTIAL AUTO STAT 06/14/2024 12:23 AM THERMAL ENGINEER PRO B-TYPE NATRIURETIC PEPTIDE STAT 06/14/2024 12:23 AM THERMAL ENGINEER CBC WITH AUTO DIFFERENTIAL STAT 06/14/2024 12:23 AM THERMAL ENGINEER COMPREHENSIVE METABOLIC PANEL STAT 06/14/2024 12:23 AM THERMAL ENGINEER documented in this encounter Results * (ABNORMAL) eGFR (06/20/2024 12:59 AM THERMAL ENGINEER) eGFR 38(L) >=60 mL/min/1. 73 m2 Comment: [...] reviewed 2021. Blood 06/20/2024 12:5 9 AM THERMAL ENGINEER 06/20/2024 1:19 AM THERMAL ENGINEER us Nasir Lyons MD LAB BLOOD ORDERABLES Mel badillo Result [facility] Department [place] [address] * (ABNORMAL) Differential, auto (06/20/2024 12:59 AM THERMAL ENGINEER) Neutrophil abs 5.8 1.5 - 6.5 K/cumm Imm gran abs 0.1 0.0 - 0.1 K/cumm [facility] Lymphocyte abs 2.3 0.8 - 3.3 K/cumm [facility] Monocyte abs 2.7(H) 0.2 - 0.8 K/cumm [facility] Eosinophil abs 0.0 0.0 - 0.5 K/cumm [facility] Basophil abs 0.0 0.0 - 0.1 K/cumm [facility] Neutrophil pct 52.9 % [facility] Comment: Consistent with previous result Interpretive Data Percent cell count reference ranges are not reported, since discordance with absolute values may lead to misinterpretation of CBC data. Current Interpretive Data was last revised on 2017. Imm gran pct 0.5 % [facility] Comment: Interpretive Data Percent cell count reference ranges are not reported, since discordance with absolute values may lead to misinterpretation of CBC data. Current Interpretive Data was last revised on 2017. Lymphocyte pct 21.0 % [facility] Comment: Interpretive Data Percent cell count reference ranges are not reported, since discordance with absolute values may lead to misinterpretation of CBC data. Current Interpretive Data was last revised on 2017. Monocyte pct 24.9 % [facility] Comment: Interpretive Data Percent cell count reference ranges are not reported, since discordance with absolute values may lead to misinterpretation of CBC data. Current Interpretive Data was last revised on 2017. Eosinophil pct 0.3 % [facility] Comment: Interpretive Data Percent cell count reference ranges are not reported, since discordance with absolute values may lead to misinterpretation of CBC data. Current Interpretive Data was last revised on 2017. Basophil pct 0.4 % [facility] Comment: Interpretive Data Percent cell count reference ranges are not reported, since discordance with absolute values may lead to misinterpretation of CBC data. Current Interpretive Data was last revised on 2017. Blood 06/20/2024 12:5 9 AM THERMAL ENGINEER 06/20/2024 1:20 AM THERMAL ENGINEER Nasir Lyons MD LAB BLOOD ORDERABLES Mel l Result Performing Organization Address [facility] Co de Phone Number [facility] Department [place] [address] * Magnesium (06/20/2024 12:59 AM THERMAL ENGINEER) Magnesium 1.4 1.4 - 2.5 mg/dL Blood 06/20/2024 12:5 9 AM THERMAL ENGINEER 06/20/2024 1:19 AM THERMAL ENGINEER Nasir Lyons MD LAB BLOOD ORDERABLES Mel l Result Performing Organization Address City/[facility] Co de Phone Number [facility] Department [place] [address] * (ABNORMAL) Hepatic function panel (06/20/2024 12:59 AM THERMAL ENGINEER) [facility] Bilirubin, total 0.6 0.1 - 1.2 mg/dL Bilirubin, direct <0.2 0.1 - 0.3 mg/dL [facility] Protein, pl 6.2(L) 6.5 - 8.5 g/dL [facility] Albumin 3.8 3.5 - 5.0 g/dL [facility] Alk phos 85 40 - 130 Units/L [facility] ALT 164(H) 7 - 45 Units/L [facility] Comment:Reviewed AST 433(H) 10 - 45 Units/L [facility] Comment:Reviewed Blood 06/20/2024 12:5 9 AM THERMAL ENGINEER 06/20/2024 1:19 AM THERMAL ENGINEER Nasir Lyons MD LAB BLOOD ORDERABLES Mel badillo Result [facility] Department [place] [address] * (ABNORMAL) CBC with auto differential (06/20/2024 12:59 AM THERMAL ENGINEER) [facility] WBC 11.0(H) 3.8 - 9.9 K/cumm Hgb 10.8(L) 11.9 - 15.5 g/dL [facility] Hct 33.7(L) 35.6 - 45.5 % [facility] Plt 133(L) 150 - 400 K/cumm [facility] MPV 10.2 9.1 - 12.3 fL [facility] RBC 3.45(L) 3.90 - 5.20 M/cumm [facility] MCV 97.7(H) 81.3 - 96.4 fL [facility] MCH 31.3 27.1 - 33.3 pg [facility] MCHC 32.0(L) 32.3 - 35.7 g/dL [facility] RDW CV 14.6 11.1 - 14.9 % [facility] RDW SD 52.6(H) 35.7 - 48.1 fL [facility] NRBC abs 0.00 0.00 - 0.01 K/cumm [facility] Blood 06/20/2024 12:5 9 AM THERMAL ENGINEER 06/20/2024 1:20 AM THERMAL ENGINEER Nasir Lyons MD LAB BLOOD ORDERABLES Mel l Result [facility] Department [place] [address] * (ABNORMAL) Basic metabolic panel (06/20/2024 12:59 AM THERMAL ENGINEER) Pathologist [facility] Sodium 138 135 - 145 mmol/L Potassium, pl 3.5 3.3 - 4.9 mmol/L [facility] Chloride 105 97 - 110 mmol/L [facility] CO2 25 22 - 32 mmol/L [facility] Anion gap 8 2 - 15 mmol/L [facility] BUN 12 6 - 25 mg/dL [facility] Creatinine 1.44(H) 0.60 - 1.10 mg/dL [facility] Glucose 123 70 - 199 mg/dL [facility] Comment: Interpretive Data Fasting glucose >/= [...] 2022. Calcium 8.1(L) 8.5 - 10.3 mg/dL [facility] Blood 06/20/2024 12:5 9 AM THERMAL ENGINEER 06/20/2024 1:19 AM THERMAL ENGINEER Nasir Lyons MD LAB BLOOD ORDERABLES Mel badillo Result [facility] Department [place] [address] * IR Embolization Tumor Organ Ischemia or Infarction (06/19/2024 11:17 AM THERMAL ENGINEER) Anatomical Region Laterality Modality Body N/A X-Ray Angiograph y 06/19/2024 4:13 PM THERMAL ENGINEER Impressions 06/19/2024 4:15 PM THERMAL ENGINEER Successful diagnostic angiography and chemo-embolization of the right posterior liver using 25 mg doxorubicin and Ethiodol and Gelfoam. PLAN: Interventional radiology will coordinate outpatient follow-up. Dictated by: Dar Willett M.D. The radiology attending physician has personally reviewed this study, and had reviewed and/or edited this written report and agrees with it. Electronically signed by: Mikey Meraz M.D. Narrative 06/19/2024 4:15 PM THERMAL ENGINEER EXAMINATION: ??DIAGNOSTIC VISCERAL ANGIOGRAPHY AND TRANSARTERIAL CHEMOEMBOLIZATION [...] was obtained. Prior to beginning the procedure, [facility] Protocol was performed to confirm the patient's [...] the patent vessel was recorded. A 6 Tajik sheath was placed and connected to a heparinized saline drip. Using fluoroscopic guidance, the following arteries were catheterized and selective diagnostic angiograms were performed: Common hepatic artery with Nancy CT Posterior division of the right hepatic artery (3rd order) The equipment used for catheterization was 5 Tajik LEV catheter and a Glidewire. ??The equipment used for selective catheterization was 2.7-Tajik Progreat catheter and a fathom wire. The [...] was obtained. Prior to beginning the procedure, [facility] Protocol was performed to confirm the patient's [...] the patent vessel was recorded. A 6 Tajik sheath was placed and connected to a heparinized saline drip. Using fluoroscopic guidance, the following arteries were catheterized and selective diagnostic angiograms were performed: Common hepatic artery with Nancy CT Posterior division of the right hepatic artery (3rd order) The equipment used for catheterization was 5 Tajik LEV catheter and a Glidewire. The equipment used for selective catheterization was 2.7-Tajik Progreat catheter and a fathom wire. The [...] by: Mikey Meraz M.D. Mikey Meraz MD IM IR PROCEDURES Mel l Result * IR Biopsy Liver (06/19/2024 9:00 AM THERMAL ENGINEER) Anatomical Region Laterality Modality Body N/A Computed Tomogra phy 06/19/2024 4:01 PM THERMAL ENGINEER Impressions 06/19/2024 4:10 PM THERMAL ENGINEER Successful image-guided core biopsy of a segment IVb hepatic lesion. PLAN: Patient will proceed to the interventional radiology area for chemoembolization. Dictated by: Dar Willett M.D. The radiology attending physician has personally reviewed this study, and had reviewed and/or edited this written report and agrees with it. Electronically signed by: Mikey Meraz M.D. Narrative 06/19/2024 4:10 PM THERMAL ENGINEER EXAMINATION: IMAGE-GUIDED BIOPSY OF LIVER HISTORY/INDICATION: 73-year-old [...] was obtained. Prior to beginning the procedure, [facility] Protocol was performed to confirm the patient's [...] was obtained. Prior to beginning the procedure, [facility] Protocol was performed to confirm the patient's [...] Result * Surgical pathology (06/19/2024 8:53 AM THERMAL ENGINEER) Tissue (Soft tissue biopsy) 06/19/2024 8:53 AM THERMAL ENGINEER Narrative PATHOLOGY [facility] - 06/23/2024 3:41 PM THERMAL ENGINEER EPIC results best viewed via link to PDF [facility] [place] [address] Note to Patients: This report may contain [...] Gender: ??F : ??1950 (Age: 73) Address: ??[address], [place], [place] ??[address] Hospital #: ??[id number] Taken:06/19/2024 Received:06/19/2024 Reported: 06/23/2024 Patient Type: [facility] Inpatient ?? Service: Oncology Location: [facility] ??[id number] Physician(s): ??MD Julio César Serrato M.D. Diagnosis: [...] liver tumor biopsy and consists of four cr-brown core(s) of soft tissue measuring 0.5 to [...] Surgical Pathology and Flow Cytometry Departments at [facility] as part of an ongoing quality assurance coach program and in compliance with federally mandated [...] Surgical Pathology and Flow Cytometry Departments of [facility]. ??It has not been cleared or approved by the U. S. Food and Drug Administration. IMAGES AND SCANNED DOCUMENTS, IF INCLUDED, ONLY VIEWABLE IN PDF VERSION OF REPORT us Dana Barajas MD LAB PATHOLOGY ORDERABLES Fin al Result PATHOLOGY [facility] 3rd Floor [place], [place] [phone] * (ABNORMAL) eGFR (06/19/2024 1:56 AM THERMAL ENGINEER) eGFR 37(L) >=60 mL/min/1. 73 m2 Comment: [...] last reviewed 2021. Blood 06/19/2024 1:56 AM THERMAL ENGINEER 06/19/2024 2:31 AM THERMAL ENGINEER us Nasir Lyons MD LAB BLOOD ORDERABLES Mel badillo Result [facility] Department [place] [address] * (ABNORMAL) Differential, auto (06/19/2024 1:56 AM THERMAL ENGINEER) Pathologist [facility] Neutrophil abs 2.1 1.5 - 6.5 K/cumm Imm gran abs 0.0 0.0 - 0.1 K/cumm [facility] Lymphocyte abs 2.7 0.8 - 3.3 K/cumm [facility] Monocyte abs 4.0(H) 0.2 - 0.8 K/cumm [facility] Eosinophil abs 0.1 0.0 - 0.5 K/cumm [facility] Basophil abs 0.0 0.0 - 0.1 K/cumm [facility] Neutrophil pct 23.5 % [facility] Comment: Confirmed by smear review Interpretive Data Percent cell count reference ranges are not reported, since discordance with absolute values may lead to misinterpretation of CBC data. Current Interpretive Data was last revised on 2017. Imm gran pct 0.3 % [facility] Comment: Interpretive Data Percent cell count reference ranges are not reported, since discordance with absolute values may lead to misinterpretation of CBC data. Current Interpretive Data was last revised on 2017. Lymphocyte pct 30.2 % [facility] Comment: Interpretive Data Percent cell count reference ranges are not reported, since discordance with absolute values may lead to misinterpretation of CBC data. Current Interpretive Data was last revised on 2017. Monocyte pct 44.4 % [facility] Comment: Interpretive Data Percent cell count reference ranges are not reported, since discordance with absolute values may lead to misinterpretation of CBC data. Current Interpretive Data was last revised on 2017. Eosinophil pct 1.3 % [facility] Comment: Interpretive Data Percent cell count reference ranges are not reported, since discordance with absolute values may lead to misinterpretation of CBC data. Current Interpretive Data was last revised on 2017. Basophil pct 0.3 % [facility] Comment: Interpretive Data Percent cell count reference ranges are not reported, since discordance with absolute values may lead to misinterpretation of CBC data. Current Interpretive Data was last revised on 2017. Blood 06/19/2024 1:56 AM THERMAL ENGINEER 06/19/2024 2:32 AM THERMAL ENGINEER Nasir Lyons MD LAB BLOOD ORDERABLES Mel l Result Performing Organization Address [facility] Co de Phone Number [facility] Department [place] [address] * Magnesium (06/19/2024 1:56 AM THERMAL ENGINEER) Magnesium 1.6 1.4 - 2.5 mg/dL Blood 06/19/2024 1:56 AM THERMAL ENGINEER 06/19/2024 2:31 AM THERMAL ENGINEER Nasir Lyons MD LAB BLOOD ORDERABLES Mel l Result Performing Organization Address City/[facility] Co de Phone Number [facility] Department [place] [address] * (ABNORMAL) Hepatic function panel (06/19/2024 1:56 AM THERMAL ENGINEER) [facility] Bilirubin, total 0.4 0.1 - 1.2 mg/dL Bilirubin, direct <0.2 0.1 - 0.3 mg/dL [facility] Protein, pl 5.9(L) 6.5 - 8.5 g/dL [facility] Albumin 3.5 3.5 - 5.0 g/dL [facility] Alk phos 61 40 - 130 Units/L [facility] ALT 5(L) 7 - 45 Units/L [facility] AST 21 10 - 45 Units/L [facility] Blood 06/19/2024 1:56 AM THERMAL ENGINEER 06/19/2024 2:31 AM THERMAL ENGINEER us Nasir Lyons MD LAB BLOOD ORDERABLES Mel badillo Result [facility] Department [place] [address] * (ABNORMAL) CBC with auto differential (06/19/2024 1:56 AM THERMAL ENGINEER) [facility] WBC 9.1 3.8 - 9.9 K/cumm Hgb 10.1(L) 11.9 - 15.5 g/dL [facility] Hct 31.7(L) 35.6 - 45.5 % [facility] Plt 148(L) 150 - 400 K/cumm [facility] MPV 10.9 9.1 - 12.3 fL [facility] RBC 3.24(L) 3.90 - 5.20 M/cumm [facility] MCV 97.8(H) 81.3 - 96.4 fL [facility] MCH 31.2 27.1 - 33.3 pg [facility] MCHC 31.9(L) 32.3 - 35.7 g/dL [facility] RDW CV 14.3 11.1 - 14.9 % [facility] RDW SD 51.9(H) 35.7 - 48.1 fL [facility] NRBC abs 0.00 0.00 - 0.01 K/cumm [facility] Blood 06/19/2024 1:56 AM THERMAL ENGINEER 06/19/2024 2:32 AM THERMAL ENGINEER Nasir Lyons MD LAB BLOOD ORDERABLES Mel l Result Performing Organization Address City/[facility]/ZIP Co de Phone Number [facility] Department [place] [address] * (ABNORMAL) Basic metabolic panel (06/19/2024 1:56 AM THERMAL ENGINEER) [facility] Sodium 141 135 - 145 mmol/L Potassium, pl 3.8 3.3 - 4.9 mmol/L [facility] Chloride 107 97 - 110 mmol/L [facility] CO2 24 22 - 32 mmol/L [facility] Anion gap 10 2 - 15 mmol/L [facility] BUN 14 6 - 25 mg/dL [facility] Creatinine 1.48(H) 0.60 - 1.10 mg/dL [facility] Glucose 121 70 - 199 mg/dL [facility] Comment: Interpretive Data Fasting glucose >/= [...] 2022. Calcium 8.4(L) 8.5 - 10.3 mg/dL [facility] Blood 06/19/2024 1:56 AM THERMAL ENGINEER 06/19/2024 2:31 AM THERMAL ENGINEER Nasir Lyons MD LAB BLOOD ORDERABLES Mel l Result Performing Organization Address [facility]/ZIP Co de Phone Number [facility] Department [place] [address] * US Kidney Complete (06/18/2024 3:53 PM THERMAL ENGINEER) Anatomical Region Laterality Modality Kidney N/A Ultrasound 06/18/2024 3:55 PM THERMAL ENGINEER Impressions 06/18/2024 4:09 PM THERMAL ENGINEER 1. ??No hydronephrosis. ??Previously described right-sided hydronephrosis has resolved. 2. ??Normal renal echogenicity. Dictated by: Greyson Anthony M.D. The radiology attending physician has personally reviewed this study, and had reviewed and/or edited this written report and agrees with it. Electronically signed by: Immanuel Bennett M.D. Narrative 06/18/2024 4:09 PM THERMAL ENGINEER EXAMINATION: COMPLETE RENAL SONOGRAM HISTORY: ??Metastatic neuroendocrine [...] signed by: Immanuel Bennett M.D. us Dana Barajas MD IMG US PROCEDURES Final Resu lt * XR Abdomen Ap 1 Vw (06/18/2024 5:54 AM THERMAL ENGINEER) Anatomical Region Laterality Modality Body, Abdomen N/A Computed Radiogr aphy 06/18/2024 11:3 4 AM THERMAL ENGINEER Impressions 06/18/2024 11:44 AM THERMAL ENGINEER A single view of the abdomen is [...] Brock Malik M.D. Narrative 06/18/2024 11:44 AM THERMAL ENGINEER EXAMINATION: Abdomen, one view. HISTORY: Check stent [...] signed by: Brock Malik M.D. us Dana Barajas MD IMG XR PROCEDURES Final Resu lt * (ABNORMAL) Manual Differential (06/18/2024 1:37 AM THERMAL ENGINEER) Differential Manual Cells Counted [address] [facility] Neutrophil abs 3.2 1.5 - 6.5 K/cumm [facility] Imm gran abs 0.0 0.0 - 0.1 K/cumm [facility] Lymphocyte abs 4.8(H) 0.8 - 3.3 K/cumm [facility] Monocyte abs 1.0(H) 0.2 - 0.8 K/cumm [facility] Neutrophil pct 36.0 % [facility] Comment: Interpretive Data Percent cell count reference ranges are not reported, since discordance with absolute values may lead to misinterpretation of CBC data. Current Interpretive Data was last revised on 2017. Lymphocyte pct 53.5 % [facility] Comment: Interpretive Data Percent cell count reference ranges are not reported, since discordance with absolute values may lead to misinterpretation of CBC data. Current Interpretive Data was last revised on 2017. Monocyte pct 10.5 % [facility] Comment: Interpretive Data Percent cell count reference ranges are not reported, since discordance with absolute values may lead to misinterpretation of CBC data. Current Interpretive Data was last revised on 2017. Blood 06/18/2024 1:37 AM THERMAL ENGINEER 06/18/2024 2:16 AM THERMAL ENGINEER us Nasir Lyons MD LAB BLOOD ORDERABLES Mel badillo Result [facility] Department [place] [address] * (ABNORMAL) eGFR (06/18/2024 1:37 AM THERMAL ENGINEER) eGFR 33(L) >=60 mL/min/1. 73 m2 Comment: [...] last reviewed 2021. Blood 06/18/2024 1:37 AM THERMAL ENGINEER 06/18/2024 2:11 AM THERMAL ENGINEER Nasir Lyons MD LAB BLOOD ORDERABLES Mel l Result Performing Organization Address [facility] de Phone Number [facility] Department [place] [address] * Magnesium (06/18/2024 1:37 AM THERMAL ENGINEER) Magnesium 1.6 1.4 - 2.5 mg/dL Blood 06/18/2024 1:37 AM THERMAL ENGINEER 06/18/2024 2:11 AM THERMAL ENGINEER Nasir Lyons MD LAB BLOOD ORDERABLES Mel l Result Performing Organization Address [facility] de Phone Number [facility] [place] [address] * (ABNORMAL) Hepatic function panel (06/18/2024 1:37 AM THERMAL ENGINEER) [facility] Bilirubin, total 0.5 0.1 - 1.2 mg/dL Bilirubin, direct <0.2 0.1 - 0.3 mg/dL [facility] Protein, pl 6.0(L) 6.5 - 8.5 g/dL [facility] Albumin 3.7 3.5 - 5.0 g/dL [facility] Alk phos 62 40 - 130 Units/L [facility] ALT 11 7 - 45 Units/L [facility] AST 24 10 - 45 Units/L [facility] Blood 06/18/2024 1:37 AM THERMAL ENGINEER 06/18/2024 2:11 AM THERMAL ENGINEER Nasir Lyons MD LAB BLOOD ORDERABLES Mel badillo Result [facility] Department [place] [address] * (ABNORMAL) CBC with auto differential (06/18/2024 1:37 AM THERMAL ENGINEER) [facility] WBC 9.0 3.8 - 9.9 K/cumm Hgb 10.2(L) 11.9 - 15.5 g/dL [facility] Hct 32.0(L) 35.6 - 45.5 % [facility] Plt 155 150 - 400 K/cumm [facility] MPV 10.4 9.1 - 12.3 fL [facility] RBC 3.28(L) 3.90 - 5.20 M/cumm [facility] MCV 97.6(H) 81.3 - 96.4 fL [facility] MCH 31.1 27.1 - 33.3 pg [facility] MCHC 31.9(L) 32.3 - 35.7 g/dL [facility] RDW CV 14.6 11.1 - 14.9 % [facility] RDW SD 52.8(H) 35.7 - 48.1 fL [facility] NRBC abs 0.00 0.00 - 0.01 K/cumm [facility] Blood 06/18/2024 1:37 AM THERMAL ENGINEER 06/18/2024 2:13 AM THERMAL ENGINEER Nasir Lyons MD LAB BLOOD ORDERABLES Mel l Result Performing Organization Address [facility]/ZIP Co de Phone Number [facility] Department [place] [address] * (ABNORMAL) Basic metabolic panel (06/18/2024 1:37 AM THERMAL ENGINEER) Pathologist [facility] Sodium 141 135 - 145 mmol/L Potassium, pl 3.2(L) 3.3 - 4.9 mmol/L [facility] Chloride 107 97 - 110 mmol/L [facility] CO2 26 22 - 32 mmol/L [facility] Anion gap 8 2 - 15 mmol/L [facility] BUN 14 6 - 25 mg/dL [facility] Creatinine 1.62(H) 0.60 - 1.10 mg/dL [facility] Glucose 95 70 - 199 mg/dL [facility] Comment: Interpretive Data Fasting glucose >/= [...] 2022. Calcium 8.1(L) 8.5 - 10.3 mg/dL [facility] Blood 06/18/2024 1:37 AM THERMAL ENGINEER 06/18/2024 2:11 AM THERMAL ENGINEER Nasir Lyons MD LAB BLOOD ORDERABLES Mel l Result [facility] Department [place] [address] * TRANSTHORACIC ECHO (TTE) COMPLETE W DOPPLER/CF W CONTRAST (06/17/2024 4:25 PM THERMAL ENGINEER) LV EF 66 % [facility] Anatomical Region Laterality Modality Ultrasound 06/17/2024 3:00 PM THERMAL ENGINEER Narrative 06/17/2024 5:02 PM THERMAL ENGINEER Patient name: La Chung Date of test: 06/17/2024 Type of test: TTE w/Doppler Hospital #: 0 Date of : 1950 (F) Concrete Finisher: MICHAEL Blankenship Referring Physician: DANA BARAJAS MD Contrast Agent: 1.1 ml Optison Administered, (1.9 ml wasted). Contrast Administered by: Supervised/Interpreted by: Parth ??MD April Diagnosis: Location: [facility] Reason for test: Shortness of Breath MV [...] 2=Hypo 3=Akinetic 4=Dyskin./Aneurysm 0=Not visualized) Parasternal [place]:MAS=1 BAS=1 MIL=1 ALLEY=1 Parasternal [place]:MAS=1 MIS=1 ND=1 MIL=1 MAL=1 MA=1 Apical 4 Chambers:=1 MIS=1 BIS=1 BAL=1 MAL=1 AL=1 AC=1 Apical 2 Chambers:AI=1 ND=1 BI=1 BA=1 MA=1 AA=1 AC=1 LV Global Longitudinal Strain: -16% ??(Normal <-17%) RV Global Longitudinal Strain: LV Function: Normal LV Ejection Fraction, ??(EF=54-74%) RV Function: Normal Septal Motion: Normal Pericardial Effusion: trace Atrial Septum: Normal DOPPLER/COLOR FLOW DOPPLER RESULTS: Diastolic Function: Grade I, altered relax. w/N. LA pres. Tricuspid Valve: normal TV Pulmonic Valve: Mild [place] AV Regurgitation: No AR seen AV Stenosis: [...] no , no MS, normal TV, Mild [place]. Diastolic function: Grade I, altered relax. w/N. [...] April By signing this report, the attending insulator cutter and former certifies that he or she has personally supervised and interpreted the echocardiogram and has reviewed and or edited and agrees with the written comments contained within the report. Procedure Note Parth Chen MD - 06/17/2024 Patient name: La Chung Date of test: 06/17/2024 Type of test: [facility] #: 0 Date of : 1950 (F) Concrete Finisher: MICHAEL Blankenship Referring Physician: DANA BARAJAS MD Contrast Agent: 1.1 ml Optison Administered, (1.9 ml wasted). Contrast Administered by: Supervised/Interpreted by: Parth Chen MD Diagnosis: Location: [facility] Reason for test: Shortness of Breath MV [...] 2=Hypo 3=Akinetic 4=Dyskin./Aneurysm 0=Not visualized) Parasternal [place]:MAS=1 BAS=1 MIL=1 ALLEY=1 Parasternal [place]:MAS=1 MIS=1 ND=1 MIL=1 MAL=1 MA=1 Apical 4 Chambers:=1 MIS=1 BIS=1 BAL=1 MAL=1 AL=1 AC=1 Apical 2 Chambers:AI=1 ND=1 BI=1 BA=1 MA=1 AA=1 AC=1 LV Global Longitudinal Strain: -16% (Normal <-17%) RV Global Longitudinal Strain: LV Function: Normal LV Ejection Fraction, (EF=54-74%) RV Function: Normal Septal Motion: Normal Pericardial Effusion: trace Atrial Septum: Normal DOPPLER/COLOR FLOW DOPPLER RESULTS: Diastolic Function: Grade I, altered relax. w/N. LA pres. Tricuspid Valve: normal TV Pulmonic Valve: Mild [place] AV Regurgitation: No AR seen AV Stenosis: [...] no , no MS, normal TV, Mild [place]. Diastolic function: Grade I, altered relax. w/N. [...] MD By signing this report, the attending insulator cutter and former certifies that he or she has personally supervised and interpreted the echocardiogram and has reviewed and or edited and agrees with the written comments contained within the report. us Dana Barajas MD CV ECHO PROCEDURES Final Res ult * (ABNORMAL) Manual Differential (06/17/2024 1:25 AM THERMAL ENGINEER) Differential Manual Cells Counted 126 [facility] Neutrophil abs 2.8 1.5 - 6.5 K/cumm [facility] Imm gran abs 0.1 0.0 - 0.1 K/cumm [facility] Lymphocyte abs 6.9(H) 0.8 - 3.3 K/cumm [facility] Monocyte abs 1.5(H) 0.2 - 0.8 K/cumm [facility] Neutrophil pct 24.6 % [facility] Comment: Interpretive Data Percent cell count reference ranges are not reported, since discordance with absolute values may lead to misinterpretation of CBC data. Current Interpretive Data was last revised on 2017. Lymphocyte pct 60.3 % [facility] Comment: Interpretive Data Percent cell count reference ranges are not reported, since discordance with absolute values may lead to misinterpretation of CBC data. Current Interpretive Data was last revised on 2017. Monocyte pct 13.5 % [facility] Comment: Interpretive Data Percent cell count reference ranges are not reported, since discordance with absolute values may lead to misinterpretation of CBC data. Current Interpretive Data was last revised on 2017. Metamyelocyte pct 0.8 % [facility] Variant lymph pct 0.8 % [facility] Blood 06/17/2024 1:25 AM THERMAL ENGINEER 06/17/2024 1:54 AM THERMAL ENGINEER us Nasir Lyons MD LAB BLOOD ORDERABLES Mel badillo Result [facility] Department [place] [address] * (ABNORMAL) eGFR (06/17/2024 1:25 AM THERMAL ENGINEER) eGFR 32(L) >=60 mL/min/1. 73 m2 Comment: [...] last reviewed 2021. Blood 06/17/2024 1:25 AM THERMAL ENGINEER 06/17/2024 1:49 AM THERMAL ENGINEER Nasir Lyons MD LAB BLOOD ORDERABLES Mel l Result Performing Organization Address [facility] Co de Phone Number [facility] [place] [address] * Magnesium (06/17/2024 1:25 AM THERMAL ENGINEER) Magnesium 1.8 1.4 - 2.5 mg/dL Blood 06/17/2024 1:25 AM THERMAL ENGINEER 06/17/2024 1:49 AM THERMAL ENGINEER Nasir Lyons MD LAB BLOOD ORDERABLES Mel l Result Performing Organization Address [facility] de Phone Number [facility] Department [place] [address] * Hepatic function panel (06/17/2024 1:25 AM THERMAL ENGINEER) Bilirubin, total 0.6 0.1 - 1.2 mg/dL Bilirubin, direct <0.2 0.1 - 0.3 mg/dL [facility] Comment:Reviewed Protein, pl 6.6 6.5 - 8.5 g/dL [facility] Albumin 3.9 3.5 - 5.0 g/dL [facility] Alk phos 75 40 - 130 Units/L [facility] ALT 11 7 - 45 Units/L [facility] AST 25 10 - 45 Units/L [facility] Blood 06/17/2024 1:25 AM THERMAL ENGINEER 06/17/2024 1:49 AM THERMAL ENGINEER Nasir Lyons MD LAB BLOOD ORDERABLES Mel l Result Performing Organization Address City/[facility]/ZIP Co de Phone Number [facility] Department [place] [address] * (ABNORMAL) CBC with auto differential (06/17/2024 1:25 AM THERMAL ENGINEER) [facility] WBC 11.3(H) 3.8 - 9.9 K/cumm Hgb 11.4(L) 11.9 - 15.5 g/dL [facility] Hct 35.1(L) 35.6 - 45.5 % [facility] Plt 156 150 - 400 K/cumm [facility] MPV 10.1 9.1 - 12.3 fL [facility] RBC 3.62(L) 3.90 - 5.20 M/cumm [facility] MCV 97.0(H) 81.3 - 96.4 fL [facility] MCH 31.5 27.1 - 33.3 pg [facility] MCHC 32.5 32.3 - 35.7 g/dL [facility] RDW CV 14.6 11.1 - 14.9 % [facility] RDW SD 52.3(H) 35.7 - 48.1 fL [facility] NRBC abs 0.00 0.00 - 0.01 K/cumm [facility] Blood 06/17/2024 1:25 AM THERMAL ENGINEER 06/17/2024 1:50 AM THERMAL ENGINEER Nasir Lyons MD LAB BLOOD ORDERABLES Mel l Result [facility] [place] [address] * (ABNORMAL) Basic metabolic panel (06/17/2024 1:25 AM THERMAL ENGINEER) Sodium 142 135 - 145 mmol/L Potassium, pl 3.6 3.3 - 4.9 mmol/L [facility] Chloride 107 97 - 110 mmol/L [facility] CO2 22 22 - 32 mmol/L [facility] Anion gap 13 2 - 15 mmol/L [facility] BUN 15 6 - 25 mg/dL [facility] Creatinine 1.65(H) 0.60 - 1.10 mg/dL [facility] Glucose 107 70 - 199 mg/dL [facility] Comment: Interpretive Data Fasting glucose >/= [...] 2022. Calcium 8.3(L) 8.5 - 10.3 mg/dL [facility] Blood 06/17/2024 1:25 AM THERMAL ENGINEER 06/17/2024 1:49 AM THERMAL ENGINEER us Nasir Lyons MD LAB BLOOD ORDERABLES Mel l Result Performing Organization Address City/[facility]/ZIP Co de Phone Number [facility] Department [place] [address] * [place] Fluoroscopy < 1 Hour (06/16/2024 3:37 PM THERMAL ENGINEER) Narrative [facility] - 06/16/2024 3:37 PM THERMAL ENGINEER The images from this study are not interpreted by Radiology. ??Please refer to the physician's procedure / OR operative note. Mela Dejesus MD IMG FLUOROSCOPY PROCEDURE S Final Result Performing Organization Address [facility]/State/ZIP Co de Phone Number [facility] * (ABNORMAL) Manual Differential (06/16/2024 12:50 AM THERMAL ENGINEER) Pathologist [facility] Differential Manual Cells Counted 124 [facility] Neutrophil abs 1.9 1.5 - 6.5 K/cumm [facility] Imm gran abs 0.0 0.0 - 0.1 K/cumm [facility] Lymphocyte abs 8.0(H) 0.8 - 3.3 K/cumm [facility] Monocyte abs 1.3(H) 0.2 - 0.8 K/cumm [facility] Neutrophil pct 16.9 % [facility] Comment: Interpretive Data Percent cell count reference ranges are not reported, since discordance with absolute values may lead to misinterpretation of CBC data. Current Interpretive Data was last revised on 2017. Lymphocyte pct 71.8 % [facility] Comment: Interpretive Data Percent cell count reference ranges are not reported, since discordance with absolute values may lead to misinterpretation of CBC data. Current Interpretive Data was last revised on 2017. Monocyte pct 11.3 % [facility] Comment: Interpretive Data Percent cell count reference ranges are not reported, since discordance with absolute values may lead to misinterpretation of CBC data. Current Interpretive Data was last revised on 2017. Blood 06/16/2024 12:5 0 AM THERMAL ENGINEER 06/16/2024 3:05 AM THERMAL ENGINEER Nasir Lyons MD LAB BLOOD ORDERABLES Mel l Result [facility] Department [place] [address] * (ABNORMAL) eGFR (06/16/2024 12:50 AM THERMAL ENGINEER) Pathologist [facility] eGFR 26(L) >=60 mL/min/1. 73 m2 Comment: [...] reviewed 2021. Blood 06/16/2024 12:5 0 AM THERMAL ENGINEER 06/16/2024 1:22 AM THERMAL ENGINEER us Nasir Lyons MD LAB BLOOD ORDERABLES Mel l Result Performing Organization Address City/[facility] Co de Phone Number [facility] Department [place] [address] * Magnesium (06/16/2024 12:50 AM THERMAL ENGINEER) Magnesium 1.9 1.4 - 2.5 mg/dL Blood 06/16/2024 12:5 0 AM THERMAL ENGINEER 06/16/2024 1:22 AM THERMAL ENGINEER Nasir Lyons MD LAB BLOOD ORDERABLES Mel l Result Performing Organization Address [facility] Co de Phone Number [facility] Department [place] [address] * (ABNORMAL) Hepatic function panel (06/16/2024 12:50 AM THERMAL ENGINEER) [facility] Bilirubin, total 0.8 0.1 - 1.2 mg/dL Bilirubin, direct 0.2 0.1 - 0.3 mg/dL [facility] Comment:Reviewed Protein, pl 6.3(L) 6.5 - 8.5 g/dL [facility] Albumin 4.1 3.5 - 5.0 g/dL [facility] Alk phos 71 40 - 130 Units/L [facility] ALT 9 7 - 45 Units/L [facility] AST 26 10 - 45 Units/L [facility] Blood 06/16/2024 12:5 0 AM THERMAL ENGINEER 06/16/2024 1:22 AM THERMAL ENGINEER us Nasir Lyons MD LAB BLOOD ORDERABLES Mel badillo Result [facility] Department [place] [address] * (ABNORMAL) CBC with auto differential (06/16/2024 12:50 AM THERMAL ENGINEER) [facility] WBC 11.2(H) 3.8 - 9.9 K/cumm Hgb 11.0(L) 11.9 - 15.5 g/dL [facility] Hct 35.0(L) 35.6 - 45.5 % [facility] Plt 149(L) 150 - 400 K/cumm [facility] MPV 10.1 9.1 - 12.3 fL [facility] RBC 3.53(L) 3.90 - 5.20 M/cumm [facility] MCV 99.2(H) 81.3 - 96.4 fL [facility] MCH 31.2 27.1 - 33.3 pg [facility] MCHC 31.4(L) 32.3 - 35.7 g/dL [facility] RDW CV 15.0(H) 11.1 - 14.9 % [facility] RDW SD 54.4(H) 35.7 - 48.1 fL [facility] NRBC abs 0.00 0.00 - 0.01 K/cumm [facility] Blood 06/16/2024 12:5 0 AM THERMAL ENGINEER 06/16/2024 1:22 AM THERMAL ENGINEER Nasir Lyons MD LAB BLOOD ORDERABLES Mel l Result Performing Organization Address [facility]/ZIP Co de Phone Number [facility] [place] [address] * (ABNORMAL) Basic metabolic panel (06/16/2024 12:50 AM THERMAL ENGINEER) [facility] Sodium 141 135 - 145 mmol/L Potassium, pl 4.0 3.3 - 4.9 mmol/L [facility] Chloride 108 97 - 110 mmol/L [facility] CO2 22 22 - 32 mmol/L [facility] Anion gap 11 2 - 15 mmol/L [facility] BUN 17 6 - 25 mg/dL [facility] Creatinine 1.97(H) 0.60 - 1.10 mg/dL [facility] Glucose 107 70 - 199 mg/dL [facility] Comment: Interpretive Data Fasting glucose >/= [...] 2022. Calcium 8.7 8.5 - 10.3 mg/dL [facility] Blood 06/16/2024 12:5 0 AM THERMAL ENGINEER 06/16/2024 1:22 AM THERMAL ENGINEER Nasir Lyons MD LAB BLOOD ORDERABLES Mel l Result Performing Organization Address [facility]/ZIP Co de Phone Number [facility] Department [place] [address] * (ABNORMAL) Manual Differential (06/15/2024 1:26 AM THERMAL ENGINEER) Differential Manual Cells Counted 122 [facility] Neutrophil abs 4.5 1.5 - 6.5 K/cumm [facility] Imm gran abs 0.0 0.0 - 0.1 K/cumm [facility] Lymphocyte abs 5.8(H) 0.8 - 3.3 K/cumm [facility] Monocyte abs 0.2 0.2 - 0.8 K/cumm [facility] Basophil abs 0.1 0.0 - 0.1 K/cumm [facility] Neutrophil pct 42.6 % [facility] Comment: Interpretive Data Percent cell count reference ranges are not reported, since discordance with absolute values may lead to misinterpretation of CBC data. Current Interpretive Data was last revised on 2017. Lymphocyte pct 49.3 % [facility] Comment: Interpretive Data Percent cell count reference ranges are not reported, since discordance with absolute values may lead to misinterpretation of CBC data. Current Interpretive Data was last revised on 2017. Monocyte pct 1.6 % [facility] Comment: Interpretive Data Percent cell count reference ranges are not reported, since discordance with absolute values may lead to misinterpretation of CBC data. Current Interpretive Data was last revised on 2017. Basophil pct 0.8 % [facility] Comment: Interpretive Data Percent cell count reference ranges are not reported, since discordance with absolute values may lead to misinterpretation of CBC data. Current Interpretive Data was last revised on 2017. Variant lymph pct 5.7 % [facility] RBC morphology Normal [facility] Platelet estimate Adequate [facility] Blood 06/15/2024 1:26 AM THERMAL ENGINEER 06/15/2024 1:39 AM THERMAL ENGINEER us Nasir Lyons MD LAB BLOOD ORDERABLES Mel badillo Result [facility] Department [place] [address] * (ABNORMAL) eGFR (06/15/2024 1:26 AM THERMAL ENGINEER) eGFR 27(L) >=60 mL/min/1. 73 m2 Comment: [...] last reviewed 2021. Blood 06/15/2024 1:26 AM THERMAL ENGINEER 06/15/2024 1:36 AM THERMAL ENGINEER Nasir Lyons MD LAB BLOOD ORDERABLES Mel badillo Result [facility] Department of Laboratories [place], [place] [id number] * Magnesium (06/15/2024 1:26 AM THERMAL ENGINEER) Magnesium 1.8 1.4 - 2.5 mg/dL Blood 06/15/2024 1:26 AM THERMAL ENGINEER 06/15/2024 1:36 AM THERMAL ENGINEER Nasir Lyons MD LAB BLOOD ORDERABLES Mel l Result Performing Organization Address [facility] Co de Phone Number [facility] [place] [address] * (ABNORMAL) Hepatic function panel (06/15/2024 1:26 AM THERMAL ENGINEER) [facility] Bilirubin, total 0.6 0.1 - 1.2 mg/dL Bilirubin, direct <0.2 0.1 - 0.3 mg/dL [facility] Protein, pl 6.3(L) 6.5 - 8.5 g/dL [facility] Albumin 4.0 3.5 - 5.0 g/dL [facility] Alk phos 71 40 - 130 Units/L [facility] ALT 11 7 - 45 Units/L [facility] AST 25 10 - 45 Units/L [facility] Blood 06/15/2024 1:26 AM THERMAL ENGINEER 06/15/2024 1:36 AM THERMAL ENGINEER Nasir Lyons MD LAB BLOOD ORDERABLES Mel l Result Performing Organization Address [facility] Co de Phone Number [facility] Department [place] [address] * (ABNORMAL) CBC with auto differential (06/15/2024 1:26 AM THERMAL ENGINEER) [facility] WBC 10.5(H) 3.8 - 9.9 K/cumm Hgb 10.9(L) 11.9 - 15.5 g/dL [facility] Hct 34.1(L) 35.6 - 45.5 % [facility] Plt 149(L) 150 - 400 K/cumm [facility] MPV 10.1 9.1 - 12.3 fL [facility] RBC 3.47(L) 3.90 - 5.20 M/cumm [facility] MCV 98.3(H) 81.3 - 96.4 fL [facility] MCH 31.4 27.1 - 33.3 pg [facility] MCHC 32.0(L) 32.3 - 35.7 g/dL [facility] RDW CV 14.8 11.1 - 14.9 % [facility] RDW SD 53.0(H) 35.7 - 48.1 fL [facility] NRBC abs 0.00 0.00 - 0.01 K/cumm [facility] Blood 06/15/2024 1:26 AM THERMAL ENGINEER 06/15/2024 1:36 AM THERMAL ENGINEER us Nasir Lyons MD LAB BLOOD ORDERABLES Mel l Result [facility] Department of Laboratories [place] [address] * (ABNORMAL) Basic metabolic panel (06/15/2024 1:26 AM THERMAL ENGINEER) Sodium 139 135 - 145 mmol/L Potassium, pl 4.1 3.3 - 4.9 mmol/L [facility] Chloride 107 97 - 110 mmol/L [facility] CO2 22 22 - 32 mmol/L [facility] Anion gap 10 2 - 15 mmol/L [facility] BUN 18 6 - 25 mg/dL [facility] Creatinine 1.94(H) 0.60 - 1.10 mg/dL [facility] Glucose 127 70 - 199 mg/dL [facility] Comment: Interpretive Data Fasting glucose >/= [...] 2022. Calcium 8.9 8.5 - 10.3 mg/dL [facility] Blood 06/15/2024 1:26 AM THERMAL ENGINEER 06/15/2024 1:36 AM THERMAL ENGINEER us Nasir Lyons MD LAB BLOOD ORDERABLES Mel l Result Performing Organization Address City/[facility]/ZIP Co de Phone Number JASON BJ [facility] Department [place] [address] * ECG 12 lead (06/14/2024 8:35 PM THERMAL ENGINEER) Ventricular Rate EKG/Min 68 BPM [facility] Atrial Rate 68 BPM [facility] [place]-Interval (MSEC) 134 ms [facility] QRS-Interval (MSEC) 104 ms [facility] QT-Interval (MSEC) 430 ms [facility] QTc 457 ms [facility] P [place] -28 degrees [facility] R [place] -2 degrees [facility] T [place] 2 degrees [facility] Diagnosis Normal sinus rhythm Normal ECG When compared with ECG of 17-APR-2019 07:30, No significant change was found Confirmed by PIPER WILSON M.D ([id number]) on 06/15/2024 5:17:10 PM [facility] 06/14/2024 8:35 PM THERMAL ENGINEER 06/15/2024 5:17 PM THERMAL ENGINEER us Eren Cr MD ECG ORDERABLES Final Result Performing Organization Address [facility] de Phone Number [facility] * CT Abdomen Pelvis W Contrast (06/14/2024 2:26 AM THERMAL ENGINEER) Anatomical Region Laterality Modality Body N/A Computed Tomogra phy 06/14/2024 4:36 AM THERMAL ENGINEER Impressions 06/14/2024 9:47 AM THERMAL ENGINEER 1. Slight increase in size of multiple [...] Becky Golden M.D. Narrative 06/14/2024 9:47 AM THERMAL ENGINEER EXAMINATION: ??Computed tomography of the abdomen and [...] IMG CT PROCEDURES Final Result * (ABNORMAL) Pro B-type natriuretic peptide (06/14/2024 12:23 AM THERMAL ENGINEER) NT-proBNP 3,993(H) <=450 pg/mL Comment: Interpretive Comments: [...] Date: 2018. Blood 06/14/2024 12:2 3 AM THERMAL ENGINEER 06/14/2024 12:35 AM THERMAL ENGINEER us Armida Guajardo MD LAB BLOOD ORDERABLES Final Resul t [facility] Department [place] [address] * (ABNORMAL) eGFR (06/14/2024 12:23 AM THERMAL ENGINEER) eGFR 29(L) >=60 mL/min/1. 73 m2 Comment: [...] reviewed 2021. Blood 06/14/2024 12:2 3 AM THERMAL ENGINEER 06/14/2024 12:35 AM THERMAL ENGINEER us Kelton Keys MD LAB BLOOD ORDERABLES Final Res ult [facility] Department [place] [address] * (ABNORMAL) Differential, auto (06/14/2024 12:23 AM THERMAL ENGINEER) Neutrophil abs 3.8 1.5 - 6.5 K/cumm Imm gran abs 0.0 0.0 - 0.1 K/cumm [facility] Lymphocyte abs 2.4 0.8 - 3.3 K/cumm [facility] Monocyte abs 3.4(H) 0.2 - 0.8 K/cumm [facility] Eosinophil abs 0.0 0.0 - 0.5 K/cumm [facility] Basophil abs 0.0 0.0 - 0.1 K/cumm [facility] Neutrophil pct 39.4 % [facility] Comment: Confirmed by smear review Interpretive Data Percent cell count reference ranges are not reported, since discordance with absolute values may lead to misinterpretation of CBC data. Current Interpretive Data was last revised on 2017. Imm gran pct 0.4 % [facility] Comment: Interpretive Data Percent cell count reference ranges are not reported, since discordance with absolute values may lead to misinterpretation of CBC data. Current Interpretive Data was last revised on 2017. Lymphocyte pct 24.8 % [facility] Comment: Interpretive Data Percent cell count reference ranges are not reported, since discordance with absolute values may lead to misinterpretation of CBC data. Current Interpretive Data was last revised on 2017. Monocyte pct 35.1 % [facility] Comment: Interpretive Data Percent cell count reference ranges are not reported, since discordance with absolute values may lead to misinterpretation of CBC data. Current Interpretive Data was last revised on 2017. Eosinophil pct 0.0 % [facility] Comment: Interpretive Data Percent cell count reference ranges are not reported, since discordance with absolute values may lead to misinterpretation of CBC data. Current Interpretive Data was last revised on 2017. Basophil pct 0.3 % [facility] Comment: Interpretive Data Percent cell count reference ranges are not reported, since discordance with absolute values may lead to misinterpretation of CBC data. Current Interpretive Data was last revised on 2017. Blood 06/14/2024 12:2 3 AM THERMAL ENGINEER 06/14/2024 12:36 AM THERMAL ENGINEER us Kelton Keys MD LAB BLOOD ORDERABLES Final Res ult [facility] Department [place] [address] * (ABNORMAL) Comprehensive metabolic panel (06/14/2024 12:23 AM THERMAL ENGINEER) Sodium 139 135 - 145 mmol/L Potassium, pl 4.6 3.3 - 4.9 mmol/L [facility] Chloride 110 97 - 110 mmol/L [facility] CO2 19(L) 22 - 32 mmol/L [facility] Anion gap 10 2 - 15 mmol/L [facility] BUN 16 6 - 25 mg/dL [facility] Creatinine 1.79(H) 0.60 - 1.10 mg/dL [facility] Glucose 141 70 - 199 mg/dL [facility] Comment: Interpretive Data Fasting glucose >/= [...] 2022. Calcium 8.9 8.5 - 10.3 mg/dL [facility] Bilirubin, total 0.4 0.1 - 1.2 mg/dL [facility] Protein, pl 6.4(L) 6.5 - 8.5 g/dL [facility] Albumin 3.9 3.5 - 5.0 g/dL [facility] Alk phos 79 40 - 130 Units/L [facility] ALT 8 7 - 45 Units/L [facility] AST 30 10 - 45 Units/L [facility] Blood 06/14/2024 12:2 3 AM THERMAL ENGINEER 06/14/2024 12:35 AM THERMAL ENGINEER Kelton Keys MD LAB BLOOD ORDERABLES Final Res ult Performing Organization Address City/State/[facility] Co de Phone Number [facility] Department [place] [address] * (ABNORMAL) CBC with auto differential (06/14/2024 12:23 AM THERMAL ENGINEER) WBC 9.8 3.8 - 9.9 K/cumm Hgb 11.6(L) 11.9 - 15.5 g/dL [facility] Hct 36.6 35.6 - 45.5 % [facility] Plt 145(L) 150 - 400 K/cumm [facility] MPV 10.9 9.1 - 12.3 fL [facility] RBC 3.68(L) 3.90 - 5.20 M/cumm [facility] MCV 99.5(H) 81.3 - 96.4 fL [facility] MCH 31.5 27.1 - 33.3 pg [facility] MCHC 31.7(L) 32.3 - 35.7 g/dL [facility] RDW CV 14.7 11.1 - 14.9 % [facility] RDW SD 54.8(H) 35.7 - 48.1 fL [facility] NRBC abs 0.00 0.00 - 0.01 K/cumm [facility] Blood 06/14/2024 12:2 3 AM THERMAL ENGINEER 06/14/2024 12:36 AM THERMAL ENGINEER Kelton Keys MD LAB BLOOD ORDERABLES Final Res ult [facility]ASON BLACK [facility] Department [place] [address] documented in this encounter Visit Diagnoses Diagnosis ANNE-MARIE (acute kidney injury) (HCC) and Mild right hydroureteronephrosis- Primary ANNE-MARIE (acute kidney injury) (HCC) 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 History of malignant neuroendocrine tumor Personal history of malignant neuroendocrine tumor 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) Vomiting Vomiting alone Right flank pain Abdominal pain, unspecified site 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 HTN (hypertension) Unspecified essential hypertension Hypothyroidism Unspecified hypothyroidism Anxiety Anxiety state, unspecified 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 Exertional dyspnea Other dyspnea and respiratory abnormality documented in this encounter Admitting Diagnoses Diagnosis ANNE-MARIE (acute kidney injury) (HCC) 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 documented in this encounter Administered Medications Inactive Administered Medications - up to 3 most recent administrations Medication Order MAR Action Action Date Dose Rate Site acetaminophen (TYLENOL) tablet 650 mg 650 mg, oral, Every 6 hours PRN, 1st line for pain, PAIN, Starting on Sat06/15/24 at 0940 Given 06/19/2024 5:11 PM THERMAL ENGINEER 650 mg Given 06/17/2024 8:48 PM THERMAL ENGINEER 650 mg Given 06/15/2024 10:00 AM THERMAL ENGINEER 650 mg alteplase (CATHFLO) 1 mg/mL syringe (premix) 1 mg 1 mg, intra-catheter, Once, On Sat06/15/24 at 1315, For 1 dose, 60 to 120 minute dwell time. Refrigerate, Indications: Catheter clearanceIndications:Catheter clearance Given 06/15/2024 1:55 PM THERMAL ENGINEER 1 mg amLODIPine (NORVASC) tablet 5 mg 5 mg, oral, Daily, First dose on Sat06/14/24 at 1522 Given 06/20/2024 8:14 AM THERMAL ENGINEER 5 mg Given 06/18/2024 9:22 AM THERMAL ENGINEER 5 mg Given 06/17/2024 8:48 AM THERMAL ENGINEER 5 mg Carrier Fluids for Secondary Infusion - 0.9% Sodium Chloride 30 mL, intravenous, As needed, For priming tubing and/or flushing, Starting on Sat06/19/24 at 0943, Pre-Procedure (IR), 0-250 ml/hr to flush line after IV infusions when no maintenance IV ordered. Infuse 30mL at the same rate as the secondary infusion. Run as primary IV, not intended for KVO. Carrier Fluids for Secondary Infusion - 0.9% Sodium Chloride 30 mL, intravenous, As needed, For priming tubing and/or flushing, Starting on Sat06/19/24 at 0910, Pre-Op/Floor (IR), 0-250 ml/hr to flush line after IV infusions when no maintenance IV ordered. Infuse 30mL at the same rate as the secondary infusion. Run as primary IV, not intended for KVO. docusate sodium (COLACE) capsule 100 mg 100 mg, oral, 2 times daily PRN, constipation, Starting on Sat06/19/24 at 1148, Indications: constipationIndications:constipation DULoxetine DR (CYMBALTA) extended release capsule 30 mg 30 mg, oral, Daily, First dose on 06/14/24 at 1522, Capsule may be opened and contents mixed with applesauce or apple juice ONLY. Do not crush or chew capsule Given 06/20/2024 8:14 AM THERMAL ENGINEER 30 mg Given 06/18/2024 9:22 AM THERMAL ENGINEER 30 mg Given 06/17/2024 8:48 AM THERMAL ENGINEER 30 mg enoxaparin (LOVENOX) syringe 30 mg 30 mg, subcutaneous, Daily (for enoxaparin), First dose on 06/14/24 at 2100, Indications: Deep Vein Thrombosis Prevention, On hold since Lydia 06/18/2024 at 0745 until manually unheldIndications:Deep Vein Thrombosis Prevention Given 06/17/2024 8:42 PM THERMAL ENGINEER 30 mg Right Lower Abdomen Given 06/16/2024 8:03 PM THERMAL ENGINEER 30 mg Ri ght Lower Abdomen Given 06/15/2024 9:41 PM THERMAL ENGINEER 30 mg Ri ght Lower Abdomen famotidine (PEPCID) injection 20 mg 20 mg, intravenous, Administer over 2 Minutes, Once, On Sat06/16/24 at 1515, For 1 dose, Pre-Op Given 06/16/2024 2:42 PM THERMAL ENGINEER 20 mg fentaNYL (SUBLIMAZE) preservative free injection 25 mcg 25 mcg, intravenous, Once, On Sat06/14/24 at 0338, For 1 dose Given 06/14/2024 4:08 AM THERMAL ENGINEER 25 mcg fentaNYL (SUBLIMAZE) preservative free injection intravenous, As needed, Starting on Sat06/19/24 at 0813, Intra-Op Given 06/19/2024 8:32 AM THERMAL ENGINEER 50 mcg Given 06/19/2024 8:13 AM THERMAL ENGINEER 50 mcg fentaNYL (SUBLIMAZE) preservative free injection intravenous, As needed, Starting on Sat06/19/24 at 1013, Intra-Op Given 06/19/2024 10:13 AM THERMAL ENGINEER 25 mcg fentaNYL (SUBLIMAZE) preservative free injection intravenous, As needed, Starting on Sat06/19/24 at 1050, Intra-Op Given 06/19/2024 10:50 AM THERMAL ENGINEER 25 mcg fentaNYL (SUBLIMAZE) preservative free injection intravenous, As needed, Starting on Sat06/19/24 at 1059, Intra-Op Given 06/19/2024 10:59 AM THERMAL ENGINEER 50 mcg heparin 10 unit/mL flush 50 Units 50 Units (5 mL), intra-catheter, As needed, line care, Starting on 06/15/24 at 1043 Given 06/18/2024 1:30 AM THERMAL ENGINEER 50 Units Given 06/15/2024 10:47 AM THERMAL ENGINEER 50 Units heparin 100 unit/mL injection 500 Units 500 Units (5 mL), intra-catheter, Once, On 06/20/24 at 1145, For 1 dose, For port decannulation., Indications: Maintain Patency of Indwelling Vascular CatheterIndications:Maintain Patency of Indwelling Vascular Catheter Given 06/20/2024 11:42 AM THERMAL ENGINEER 500 Units heparin in 0.9% sodium chloride 1,000 units/500 mL (2 unit/mL) infusion (premix) Continuous PRN, Starting on Sat06/19/24 at 1028, Intra-Op New Bag 06/19/2024 10:28 AM THERMAL ENGINEER 60 Units/hr 30 mL/hr hydrALAZINE (APRESOLINE) injection 5 mg 5 mg, intravenous, Administer over 2 Minutes, Every 5 min PRN, high blood pressure, for systolic blood pressure greater than 160, Starting on 06/16/24 at 1633, For 4 doses, Phase I Given 06/16/2024 4:58 PM THERMAL ENGINEER 5 mg Given 06/16/2024 4:51 PM THERMAL ENGINEER 5 mg Given 06/16/2024 4:39 PM THERMAL ENGINEER 5 mg HYDROcodone-acetaminophen (NORCO) 5-325 mg per tablet 1 tablet 1 tablet, oral, Every 4 hours PRN, breakthrough pain, Starting on Sat06/14/24 at 1553, Indications: PainIndications:Pain hydrOXYzine (ATARAX) tablet 25 mg 25 mg, oral, Nightly PRN, anxiety, Starting on Sat06/14/24 at 2039 Given 06/14/2024 9:12 PM THERMAL ENGINEER 25 mg ioversoL (OPTIRAY 350) syringe 100 mL 100 mL, intravenous, Once in imaging, contrast, Starting on Sat06/14/24 at 0216, For 1 dose Contrast Given 06/14/2024 2:24 AM THERMAL ENGINEER 75 mL levothyroxine (SYNTHROID) tablet 100 mcg 100 mcg, oral, Daily (early AM), First dose on Sat06/14/24 at 1522, Administer on an empty stomach, preferably 30 minutes before breakfast. Take 4 hours apart from antacids, iron and calcium products. Separate from tube feeds, if applicable. Given 06/20/2024 5:56 AM THERMAL ENGINEER 100 mcg Given 06/19/2024 5:11 AM THERMAL ENGINEER 100 mcg Given 06/18/2024 6:08 AM THERMAL ENGINEER 100 mcg lidocaine (LIDODERM) 5 % patch 2 patch 2 patch, transdermal, Administer over 12 Hours, Every 24 hours, First dose (after last reorder) on Sat06/17/24 at 1415, Do not cover the holes on the top side of the patch., Apply to affected area: other lidocaine (PF) (XYLOCAINE) 10 mg/mL (1 %) preservative free injection As needed, Starting on Sat06/19/24 at 0813, Intra-Procedure (IR), Indications: Administration of Local AnesthesiaIndications:Administrati on of Local Anesthesia Given 06/19/2024 8:13 AM THERMAL ENGINEER 8 mL lidocaine (PF) (XYLOCAINE) 10 mg/mL (1 %) preservative free injection As needed, Starting on Sat06/19/24 at 1016, Intra-Procedure (IR), Indications: Administration of Local AnesthesiaIndications:Administrati on of Local Anesthesia Given 06/19/2024 10:16 AM THERMAL ENGINEER 5 mL Right Groin magnesium sulfate 4 g/100 mL in water (premix) 4 g 4 g, intravenous, Administer over 90 Minutes, Every 4 hours PRN, magnesium replacement, Starting on Lydia 06/18/24 at 0442, For magnesium level of 1.2-1.5 mg/dL, Indications: hypomagnesemiaIndications:hypomagn esemia New Bag 06/20/2024 4:58 AM THERMAL ENGINEER 4 g magnesium sulfate 6 g in sodium chloride 0.9% 250 mL IVPB 6 g, intravenous, at 131 mL/hr, Administer over 120 Minutes, Every 4 hours PRN, magnesium replacement, Starting on Lydia 06/18/24 at 0442, For magnesium level less than 1.2 mg/dL and call/notify provider., Indications: hypomagnesemiaIndications:hypomagn esemia midazolam (VERSED) 1 mg/mL injection As needed, Starting on Sat06/19/24 at 0813, Intra-Op Given 06/19/2024 8:32 AM THERMAL ENGINEER 0.5 mg Given 06/19/2024 8:13 AM THERMAL ENGINEER 1 mg midazolam (VERSED) 1 mg/mL injection As needed, Starting on Sat06/19/24 at 1013, Intra-Op Given 06/19/2024 10:13 AM THERMAL ENGINEER 0.5 mg midazolam (VERSED) 1 mg/mL injection As needed, Starting on Sat06/19/24 at 1051, Intra-Op Given 06/19/2024 10:51 AM THERMAL ENGINEER 0.5 mg midazolam (VERSED) 1 mg/mL injection As needed, Starting on Sat06/19/24 at 1058, Intra-Op Given 06/19/2024 10:58 AM THERMAL ENGINEER 1 mg octreotide (SandoSTATIN) injection 150 mcg 150 mcg, subcutaneous, Once, On Sat06/19/24 at 1015, For 1 dose, Pre-Procedure (IR), Refrigerate Given 06/19/2024 9:48 AM THERMAL ENGINEER 150 mcg Right Lower Abdomen ondansetron (ZOFRAN) injection 4 mg 4 mg, intravenous, Administer over 2 Minutes, Once, On 06/13/24 at 2259, For 1 dose Given 06/13/2024 11:10 PM THERMAL ENGINEER 4 mg ondansetron (ZOFRAN) injection 4 mg 4 mg, intravenous, Administer over 2 Minutes, Once, On 06/14/24 at 0717, For 1 dose Given 06/14/2024 7:28 AM THERMAL ENGINEER 4 mg ondansetron (ZOFRAN) injection 4 mg 4 mg, intravenous, Administer over 2 Minutes, Every 4 hours PRN, nausea, vomiting, Starting on 06/14/24 at 1456 Given 06/16/2024 8:04 PM THERMAL ENGINEER 4 mg Given 06/14/2024 7:50 PM THERMAL ENGINEER 4 mg ondansetron (ZOFRAN) injection 4 mg 4 mg, intravenous, Administer over 2 Minutes, Every 6 hours PRN, nausea, vomiting, Starting on Sat06/17/24 at 1548 ondansetron (ZOFRAN) injection 4 mg 4 mg, intravenous, Administer over 2 Minutes, Every 6 hours PRN, nausea, vomiting, if not tolerating PO, Starting on Sat06/19/24 at 1148, Indications: nausea and vomitingIndications:nausea and vomiting Given 06/19/2024 12:01 PM THERMAL ENGINEER 4 mg ondansetron ODT (ZOFRAN-ODT) disintegrating tablet 4 mg 4 mg, oral, Every 6 hours PRN, nausea, vomiting, Starting on Sat06/19/24 at 1148, Indications: nausea and vomitingIndications:nausea and vomiting oxyBUTYnin (DITROPAN) tablet 5 mg 5 mg, oral, 3 times daily PRN, bladder spasms, Starting on Lydia 06/18/24 at 0745 pantoprazole (PROTONIX) 40 mg in sodium chloride 0.9% 10 mL IV Syringe 40 mg, intravenous, at 300 mL/hr, Administer over 2 Minutes, 2 times daily, First dose on 06/14/24 at 1458, For IV administration, reconstitute 40 mg vial with 10 mL sodium chloride 0.9% for injection for a final concentration of 4 mg/mL, Indications: Treatment of Non-Bleeding Gastric DisorderIndications:Treatment of Non-Bleeding Gastric Disorder Given 06/16/2024 8:03 PM THERMAL ENGINEER 40 mg 3 00 mL/hr Given 06/16/2024 9:22 AM THERMAL ENGINEER 40 mg 300 mL/hr Given 06/15/2024 9:40 PM THERMAL ENGINEER 40 mg 300 mL/hr pantoprazole DR (PROTONIX) extended release tablet 40 mg 40 mg, oral, Daily, First dose on Sat06/17/24 at 0900, Do not crush, chew, cut, dissolve, open or otherwise manipulate tablet/capsule., Indications: Treatment of Non-Bleeding Gastric DisorderIndications:Treatment of Non-Bleeding Gastric Disorder Given 06/20/2024 8:14 AM THERMAL ENGINEER 40 mg Given 06/18/2024 9:22 AM THERMAL ENGINEER 40 mg Given 06/17/2024 8:47 AM THERMAL ENGINEER 40 mg perflutren protein-a (OPTISON) 3 mL in sodium chloride 0.9% 8 mL syringe 1-8 mL, intravenous, Once in imaging, contrast, Starting on 06/17/24 at 1517, For 1 dose, Intra-Procedure (CV) Contrast Given 06/17/2024 3:50 PM THERMAL ENGINEER 3 mL potassium chloride ER (KLOR-CON) extended release tablet 40 mEq 40 mEq, oral, Every 2 hours PRN, potassium replacement, Starting on Lydia 06/18/24 at 0442, HOLD dose and contact prescriber/provider if any of the following conditions are met: 1. Patient is undergoing any form of dialysis. 2. Serum creatinine is GREATER than 1.5 mg/dL For patients who cannot take oral, contact provider/prescriber for IV potassium. 40 mEq x 1 dose for potassium less than 2.6 mmol/L, call prescriber for additional orders; For potassium 2.6-2.9 mmol/L, give 40 mEq every 2 hours x 2 doses and obtain stat potassium level 2 hours after the 2nd dose; For potassium 3.0-3.1 mmol/L, give 40 mEq every 2 hours x 2 doses; For potassium 3.2-3.5 mmol/L, give 40 mEq x 1 dose. Tablets should not be crushed, chewed, dissolved, or otherwise manipulated. Capsules may be opened and sprinkled on a spoonful of applesauce or pudding, but the contents of the capsule should not be crushed or chewed., Indications: hypokalemiaIndications:hypokalemia Given 06/20/2024 5:56 AM THERMAL ENGINEER 40 mEq Given 06/18/2024 6:08 AM THERMAL ENGINEER 40 mEq prochlorperazine (COMPAZINE) injection 5 mg 5 mg, intravenous, Administer over 2 Minutes, 2 times daily PRN, nausea, vomiting, Second line for nausea, Starting on 06/14/24 at 2040 Given 06/14/2024 9:13 PM THERMAL ENGINEER 5 mg prochlorperazine (COMPAZINE) injection 5 mg 5 mg, intravenous, Administer over 2 Minutes, Every 6 hours PRN, nausea, vomiting, Second line for nausea, Starting on Sat06/17/24 at 1548 Given 06/19/2024 12:20 PM THERMAL ENGINEER 5 mg sodium chloride 0.9% bolus 1,000 mL 1,000 mL, intravenous, Once, On 06/13/24 at 2259, For 1 dose New Bag 06/13/2024 11:10 PM THERMAL ENGINEER 1,000 mL sodium chloride 0.9% flush 0.5-20 mL 0.5-20 mL, intra-catheter, Every 8 hours scheduled, First dose on Sat06/14/24 at 1523, Flush volume based on line type and size. , Indications: FlushingIndications:Flushing Given 06/20/2024 11:42 AM THERMAL ENGINEER 10 mL Given 06/17/2024 8:43 PM THERMAL ENGINEER 10 mL Given 06/16/2024 8:12 PM THERMAL ENGINEER 10 mL sodium chloride 0.9% flush 0.5-20 mL 0.5-20 mL, intra-catheter, Every 8 hours scheduled, First dose on Sat06/19/24 at 1400, Pre-Procedure (IR), Flush volume based on line type and size. sodium chloride 0.9% flush 0.5-20 mL 0.5-20 mL, intra-catheter, As needed, line care, Starting on Sat06/19/24 at 0943, Pre-Procedure (IR), Flush volume based on line type and size. Flush before and after each use. sodium chloride 0.9% flush 0.5-20 mL 0.5-20 mL, intra-catheter, Every 8 hours scheduled, First dose on Sat06/19/24 at 0945, Pre-Op/Floor (IR), Flush volume based on line type and size. , Indications: FlushingIndications:Flushin g sodium chloride 0.9% flush 0.5-20 mL 0.5-20 mL, intra-catheter, As needed, line care, Starting on Sat06/19/24 at 0910, Pre-Op/Floor (IR), Flush volume based on line type and size. Flush before and after each use. , Indications: FlushingIndications:Flushin g sodium chloride 0.9% flush 10 mL 10 mL, intra-catheter, Once, On 06/20/24 at 1145, For 1 dose, Prior to heparin to decannulate port. Given 06/20/2024 11:42 AM THERMAL ENGINEER 10 mL sodium chloride 0.9% flush 10-20 mL 10-20 mL, intra-catheter, As needed, line care, with each use, Starting on Sat06/19/24 at 0910, Pre-Op/Floor (IR), Flush volume based on line type, size, and protocol. sodium chloride 0.9% flush 5-10 mL 5-10 mL, intra-catheter, Every 12 hours scheduled, First dose on Sat06/19/24 at 0945, Pre-Op/Floor (IR), Flush volume based on line type, size, and protocol. Given 06/20/2024 8:14 AM THERMAL ENGINEER 10 mL sodium chloride 0.9% infusion 100 mL/hr, intravenous, Continuous, Starting on Sat06/14/24 at 1458, For 10 hours Rate/Dose Verify 06/14/2024 6:05 PM THERMAL ENGINEER 100 mL/hr 100 mL/hr Rate/Dose Verify 06/14/2024 3:59 PM THERMAL ENGINEER 100 mL/hr 100 mL/ hr New Bag 06/14/2024 3:58 PM THERMAL ENGINEER 100 mL/hr 100 mL/hr sodium chloride 0.9% infusion 100 mL/hr, intravenous, Continuous, Starting on Sat06/15/24 at 1400, For 24 hours New Bag 06/16/2024 11:41 AM THERMAL ENGINEER 100 mL/hr 100 mL/hr Rate/Dose Verify 06/16/2024 6:07 AM THERMAL ENGINEER 100 mL/hr 100 mL/ hr New Bag 06/15/2024 3:25 PM THERMAL ENGINEER 100 mL/hr 100 mL/hr sodium chloride 0.9% infusion 50 mL/hr, intravenous, Continuous, Starting on Sat06/16/24 at 1515, Pre-Op New Bag 06/16/2024 2:42 PM THERMAL ENGINEER 50 mL/hr 50 mL/ hr sodium chloride 0.9% infusion 75 mL/hr, intravenous, Continuous, Starting on Sat06/16/24 at 1630, Phase I New Bag 06/16/2024 3:58 PM THERMAL ENGINEER 125 mL/hr 125 m L/hr sodium chloride 0.9% infusion 75 mL/hr, intravenous, Continuous, Starting on Sat06/19/24 at 0945, Pre-Op/Floor (IR) New Bag 06/19/2024 1:09 PM THERMAL ENGINEER 75 mL/hr 75 mL/hr documented in this encounter Discontinued Medications Medication Sig Discontinue Reason Start Date End Da te ipratropium (ATROVENT) 42 mcg (0.06 %) nasal spray [place] 1 spray twice a day by nasal route for 13 days. 04/28/2024 06/14/2024 montelukast (SINGULAIR) 10 mg tablet Take 1 tablet (10 mg total) by mouth as needed (allergies) 06/14/2024 ascorbic acid, vitamin C, 500 mg capsuleIndications:del cid pplement Take 1 tablet by mouth magazine designer before breakfast Stop Taking at Discharge 07/04/2016 06/20/2024 coenzyme [id number] E 100-5 mg-unit capsuleIndications:del cid pplement Take 1 tablet by mouth magazine designer before breakfast Stop Taking at Discharge 06/20/2024 clotrimazole-betameth asone (LOTRISONE) cream Apply 1 Application topically daily as needed (rash) Stop Taking at Discharge 06/20/2024 fluticasone propionate (FLONASE) 50 mcg/actuation nasal sprayIndications:Min rgic Rhinitis Administer 2 sprays into each nostril daily as needed for rhinitis or allergies Stop Taking at Discharge 06/20/2024 diphenoxylate-atropin e (LOMOTIL) 2.5-0.025 mg per tabletIndications:Cinthya motherapy-Induced Diarrhea Take 1 tablet by mouth 4 (four) times a day as needed for diarrhea Stop Taking at Discharge 02/14/2021 06/20/2024 LORazepam (ATIVAN) 0.5 mg tabletIndications:MRI scan Take 1 tablet 1 hour prior to MRI exam, may repeat dose if needed 15 minutes prior to MRI Stop Taking at Discharge 08/21/2021 06/20/2024 0.9 % sodium chloride ([facility] sodium chloride 0.9%) injectionIndications: line care Infuse 10 mL into a venous catheter once a week On saturday Stop Taking at Discharge 06/20/2024 heparin 100 unit/mL solutionIndications:Karishma mattson Patency of Indwelling Vascular Catheter Infuse 5 mL (500 Units total) into a venous catheter once a week Fluids every -Heparin to flush Stop Taking at Discharge 06/20/2024 sodium chloride 0.9 % solutionIndications:h ydration Infuse 1,000 mL into a venous catheter once a week Patient to infuse 1000mL of Normal Saline via CADD Coreas pump set at 300mL/Hr once weekly.- Saturday Stop Taking at Discharge 09/14/2022 06/20/2024 0.9 % sodium chloride (sodium chloride 0.9%) 0.9% infusion Stop Taking at Discharge 05/22/2023 06/20/2024 losartan (COZAAR) 25 mg tablet Take 1 tablet every day by oral route. Stop Taking at Discharge 07/10/2023 06/20/2024 ergocalciferol (VITAMIN D) 50,000 unit capsuleIndications:Vi tamin D Deficiency Take 1 capsule (50,000 Units total) by mouth once a week for 12 doses Stop Taking at Discharge 12/24/2023 06/20/2024 amoxicillin 500 mg capsule TAKE 4 CAPSULES BY MOUTH 1 HOUR BEFORE APPOINTMENT Stop Taking at Discharge 01/27/2024 06/20/2024 documented as of this encounter Historical Medications * This list may reflect changes made after this encounter. DULoxetine DR (CYMBALTA) 30 mg capsule Take 1 capsule (30 mg total) by mouth daily oxyBUTYnin (DITROPAN) 5 mg tablet Take 1 tablet (5 mg total) by mouth 2 (two) times a day added in this encounter Active and Recently Administered Medications Times are shown in THERMAL ENGINEER. Scheduled Medication Order 06/18/2024 06/19/2024 06/20/2024 amLODIPine (NORVASC) tablet 5 mg 5 mg, oral, Daily, First dose on 06/14/24 at 1522 0922 (Given - Provider: Sis Pedraza RN) 0900 (Not Given - Provider: Sis Pedraza RN - Reason: Patient not available - Comment: Patient having TACE/Liver biopsy.) 0814 (Given - Provider: Marcia Haynes RN) DOXOrubicin (ADRIAMYCIN) 50 mg in ioversoL (OPTIRAY 320) 5 mL intra-arterial 50 mg, intra-arterial, Once, On Sat06/19/24 at 0945, For 1 dose, Pre-Procedure (IR), Vesicant - for intra-arterial use only, Indications: hepatic chemoembolization 1104 (Due - Provider: Sabrina Torres RN - Comment: given intraop) DULoxetine DR (CYMBALTA) extended release capsule 30 mg 30 mg, oral, Daily, First dose on 06/14/24 at 1522, Capsule may be opened and contents mixed with applesauce or apple juice ONLY. Do not crush or chew capsule 0922 (Given - Provider: Sis Pedraza, [place]) 0900 (Not Given - Provider: Sis Pedraza RN - Reason: Patient not available - Comment: Patient having TACE/Liver biopsy) 0814 (Given - Provider: Marcia Haynes, [place]) enoxaparin (LOVENOX) syringe 30 mg 30 mg, subcutaneous, Daily (for enoxaparin), First dose on 06/14/24 at 2100, Indications: Deep Vein Thrombosis Prevention, On hold since Lydia 06/18/2024 at 0745 until manually unheld 0745 (Held by Provider - Provider: Dana Barajas MD - Reason: Change in Patient Status)2100 (Dose Auto Held - Provider: Dana Barajas MD) 2100 (Dose Auto Held - Provider: Dana Barajas MD) 1730 (Unheld by Provider - Provider: Automatic Discharge Provider) heparin 100 unit/mL injection 500 Units (COMPLETED) 500 Units (5 mL), intra-catheter, Once, On 06/20/24 at 1145, For 1 dose, For port decannulation., Indications: Maintain Patency of Indwelling Vascular Catheter 1142 (Given - Provider: Marcia Haynes, [place]) levothyroxine (SYNTHROID) tablet 100 mcg 100 mcg, oral, Daily (early AM), First dose on 06/14/24 at 1522, Administer on an empty stomach, preferably 30 minutes before breakfast. Take 4 hours apart from antacids, iron and calcium products. Separate from tube feeds, if applicable. 0608 (Given - Provider: Nohelia Moore RN) 0511 (Given - Provider: Nati Rousseau RN) 0556 (Given - Provider: Soniya López RN) lidocaine (LIDODERM) 5 % patch 2 patch 2 patch, transdermal, Administer over 12 Hours, Every 24 hours, First dose (after last reorder) on Sat06/17/24 at 1415, Do not cover the holes on the top side of the patch., Apply to affected area: other 1415 (Not Given - Provider: Sis Pedraza RN - Reason: Patient/family refused) 1415 (Not Given - Provider: Sis Pedraza RN - Reason: Patient/family refused) losartan (COZAAR) tablet 25 mg 25 mg, oral, Daily, First dose on Sat06/14/24 at 1522, On hold since Sat06/14/2024 at 1521 until manually unheld 0900 (Dose Auto Held) 0900 (Dose Auto Held) 0900 (Hold - Provider: Marcia Haynes RN - Reason: See Provider Order)1730 (Unheld by Provider - Provider: Automatic Discharge Provider) octreotide (SandoSTATIN) injection 150 mcg (COMPLETED) 150 mcg, subcutaneous, Once, On Sat06/19/24 at 1015, For 1 dose, Pre-Procedure (IR), Refrigerate 0948 (Given - Provider: Manpreet Torres, [place]) pantoprazole DR (PROTONIX) extended release tablet 40 mg 40 mg, oral, Daily, First dose on Sat06/17/24 at 0900, Do not crush, chew, cut, dissolve, open or otherwise manipulate tablet/capsule., Indications: Treatment of Non-Bleeding Gastric Disorder 0922 (Given - Provider: Sis Pedraza RN) 0900 (Not Given - Provider: Sis Pedraza RN - Reason: Patient not available - Comment: Patient having TACE/Liver biopsy) 0814 (Given - Provider: Marcia Haynes, [place]) sodium chloride 0.9% flush 0.5-20 mL 0.5-20 mL, intra-catheter, Every 8 hours scheduled, First dose on Sat06/14/24 at 1523, Flush volume based on line type and size. , Indications: Flushing 0608 (Not Given - Provider: Nohelia Moore RN - Reason: Other)1400 (Not Given - Provider: Sis Pedraza RN - Reason: Other)2122 (Canceled Entry - Provider: Nati Rousseau RN) 0618 (Canceled Entry - Provider: Nati Rousseau RN)1601 (Not Given - Provider: Sis Pedraza RN - Reason: IV Infusing)2100 (Not Given - Provider: Soniya López RN - Reason: Other) 0634 (Not Given - Provider: Soniya López RN - Reason: Other)1142 (Given - Provider: Marcia Haynes RN) sodium chloride 0.9% flush 0.5-20 mL 0.5-20 mL, intra-catheter, Every 8 hours scheduled, First dose on Sat06/19/24 at 1400, Pre-Procedure (IR), Flush volume based on line type and size. 1400 (Not Given - Provider: Sis Pedraza RN - Reason: IV Infusing)2100 (Not Given - Provider: Soniya López RN - Reason: Other) 0634 (Not Given - Provider: Soniya López RN - Reason: Other) sodium chloride 0.9% flush 0.5-20 mL 0.5-20 mL, intra-catheter, Every 8 hours scheduled, First dose on Sat06/19/24 at 0945, Pre-Op/Floor (IR), Flush volume based on line type and size. , Indications: Flushing 0945 (Not Given - Provider: Sis Pedraza RN - Reason: Patient not available)1400 (Not Given - Provider: Sis Pedraza RN - Reason: IV Infusing)2100 (Not Given - Provider: Soniya López RN - Reason: Other) 0634 (Not Given - Provider: Soniya López RN - Reason: Other) sodium chloride 0.9% flush 10 mL (COMPLETED) 10 mL, intra-catheter, Once, On Sat06/20/24 at 1145, For 1 dose, Prior to heparin to decannulate port. 1142 (Given - Provider: Marcia Haynes, [place]) sodium chloride 0.9% flush 5-10 mL 5-10 mL, intra-catheter, Every 12 hours scheduled, First dose on Sat06/19/24 at 0945, Pre-Op/Floor (IR), Flush volume based on line type, size, and protocol. 0945 (Not Given - Provider: Sis Pedraza RN - Reason: Patient not available - Comment: Patient having TACE/Liver biopsy.)2100 (Not Given - Provider: Soniya López RN - Reason: Other) 0814 (Given - Provider: Marcia Haynes RN) Continuous Medication Order 06/18/2024 06/19/2024 06/20/2024 sodium chloride 0.9% infusion (CANCELED) 75 mL/hr, intravenous, Continuous, Starting on Sat06/19/24 at 0945, Pre-Op/Floor (IR) 0945 (Canceled Entry - Provider: Sis Pedraza RN)1309 (New Bag - Provider: Sis Pedraza RN)1714 (Stopped - Provider: Sis Pedraza RN) PRN Medication Order 06/18/2024 06/19/2024 06/20/2024 acetaminophen (TYLENOL) tablet 650 mg 650 mg, oral, Every 6 hours PRN, 1st line for pain, PAIN, Starting on 06/15/24 at 0940 1711 (Given - Provider: Sis Pedraza RN) Carrier Fluids for Secondary Infusion - 0.9% Sodium Chloride 30 mL, intravenous, As needed, For priming tubing and/or flushing, Starting on Sat06/14/24 at 1522, 0-250 ml/hr to flush line after IV infusions when no maintenance IV ordered. Infuse 30mL at the same rate as the secondary infusion. Run as primary IV, not intended for KVO. Carrier Fluids for Secondary Infusion - 0.9% Sodium Chloride 30 mL, intravenous, As needed, For priming tubing and/or flushing, Starting on Sat06/19/24 at 0943, Pre-Procedure (IR), 0-250 ml/hr to flush line after IV infusions when no maintenance IV ordered. Infuse 30mL at the same rate as the secondary infusion. Run as primary IV, not intended for KVO. Carrier Fluids for Secondary Infusion - 0.9% Sodium Chloride 30 mL, intravenous, As needed, For priming tubing and/or flushing, Starting on Sat06/19/24 at 0910, Pre-Op/Floor (IR), 0-250 ml/hr to flush line after IV infusions when no maintenance IV ordered. Infuse 30mL at the same rate as the secondary infusion. Run as primary IV, not intended for KVO. docusate sodium (COLACE) capsule 100 mg 100 mg, oral, 2 times daily PRN, constipation, Starting on Sat06/19/24 at 1148, Indications: constipation fentaNYL (SUBLIMAZE) preservative free injection (COMPLETED) intravenous, As needed, Starting on Sat06/19/24 at 0813, Intra-Op 0813 (Given - Provider: Sunshine Guardado RN)0832 (Given - Provider: Sunshine Guardado RN) fentaNYL (SUBLIMAZE) preservative free injection (COMPLETED) intravenous, As needed, Starting on Sat06/19/24 at 1013, Intra-Op 1013 (Given - Provider: Sabrina Torres RN) fentaNYL (SUBLIMAZE) preservative free injection (COMPLETED) intravenous, As needed, Starting on Sat06/19/24 at 1050, Intra-Op 1050 (Given - Provider: Sabrina Torres RN) fentaNYL (SUBLIMAZE) preservative free injection (COMPLETED) intravenous, As needed, Starting on Sat06/19/24 at 1059, Intra-Op 1059 (Given - Provider: Sabrina Torres RN) heparin 10 unit/mL flush 50 Units 50 Units (5 mL), intra-catheter, As needed, line care, Starting on Sat06/15/24 at 1043 0130 (Given - Provider: Nohelia Moore RN) heparin in 0.9% sodium chloride 1,000 units/500 mL (2 unit/mL) infusion (premix) (COMPLETED) Continuous PRN, Starting on Sat06/19/24 at 1028, Intra-Op 1028 (New Bag - Provider: Dar Willett MD) 0700 (Stopped - Provider: Marcia Haynes RN - Comment: Not running on handoff) HYDROcodone-acetaminophe n (NORCO) 5-325 mg per tablet 1 tablet 1 tablet, oral, Every 4 hours PRN, breakthrough pain, Starting on Sat06/14/24 at 1553, Indications: Pain hydrOXYzine (ATARAX) tablet 25 mg 25 mg, oral, Nightly PRN, anxiety, Starting on Sat06/14/24 at 2039 lidocaine (PF) (XYLOCAINE) 10 mg/mL (1 %) preservative free injection (COMPLETED) As needed, Starting on Sat06/19/24 at 0813, Intra-Procedure (IR), Indications: Administration of Local Anesthesia 0813 (Given - Provider: Dar Willett MD) lidocaine (PF) (XYLOCAINE) 10 mg/mL (1 %) preservative free injection (COMPLETED) As needed, Starting on Sat06/19/24 at 1016, Intra-Procedure (IR), Indications: Administration of Local Anesthesia 1016 (Given - Provider: Dar Willett MD) lidocaine-prilocaine (EMLA) 2.5-2.5 % cream topical, As needed, pain, Starting on Sat06/14/24 at 1521, Apply to affected area: other, Indications: Administration of Local Anesthesia magnesium sulfate 4 g/100 mL in water (premix) 4 g 4 g, intravenous, Administer over 90 Minutes, Every 4 hours PRN, magnesium replacement, Starting on Lydia 06/18/24 at 0442, For magnesium level of 1.2-1.5 mg/dL, Indications: hypomagnesemia 0458 (New Bag - Provider: Soniya López RN)0634 (Stopped - Provider: Soniya López RN) magnesium sulfate 6 g in sodium chloride 0.9% 250 mL IVPB 6 g, intravenous, at 131 mL/hr, Administer over 120 Minutes, Every 4 hours PRN, magnesium replacement, Starting on Lydia 06/18/24 at 0442, For magnesium level less than 1.2 mg/dL and call/notify provider., Indications: hypomagnesemia midazolam (VERSED) 1 mg/mL injection (COMPLETED) As needed, Starting on Sat06/19/24 at 0813, Intra-Op 0813 (Given - Provider: Sunshine Guardado RN)0832 (Given - Provider: Sunshine Guardado RN) midazolam (VERSED) 1 mg/mL injection (COMPLETED) As needed, Starting on Sat06/19/24 at 1013, Intra-Op 1013 (Given - Provider: Sabrina Torres RN) midazolam (VERSED) 1 mg/mL injection (COMPLETED) As needed, Starting on Sat06/19/24 at 1051, Intra-Op 1051 (Given - Provider: Sabrina Torres RN) midazolam (VERSED) 1 mg/mL injection (COMPLETED) As needed, Starting on Sat06/19/24 at 1058, Intra-Op 1058 (Given - Provider: Sabrina Torres RN) ondansetron (ZOFRAN) injection 4 mg 4 mg, intravenous, Administer over 2 Minutes, Every 6 hours PRN, nausea, vomiting, Starting on Sat06/17/24 at 1548 ondansetron (ZOFRAN) injection 4 mg(Linked Group 1) 4 mg, intravenous, Administer over 2 Minutes, Every 6 hours PRN, nausea, vomiting, if not tolerating PO, Starting on Sat06/19/24 at 1148, Indications: nausea and vomiting 1201 (Given - Provider: Sis Pedraza RN) ondansetron ODT (ZOFRAN-ODT) disintegrating tablet 4 mg(Linked Group 1) 4 mg, oral, Every 6 hours PRN, nausea, vomiting, Starting on Sat06/19/24 at 1148, Indications: nausea and vomiting 1201 (See Alternative - Provider: Sis Pedraza RN) oxyBUTYnin (DITROPAN) tablet 5 mg 5 mg, oral, 3 times daily PRN, bladder spasms, Starting on Sat06/18/24 at 0745 potassium chloride ER (KLOR-CON) extended release tablet 40 mEq 40 mEq, oral, Every 2 hours PRN, potassium replacement, Starting on Sat06/18/24 at 0442, HOLD dose and contact prescriber/provider if any of the following conditions are met: 1. Patient is undergoing any form of dialysis. 2. Serum creatinine is GREATER than 1.5 mg/dL For patients who cannot take oral, contact provider/prescriber for IV potassium. 40 mEq x 1 dose for potassium less than 2.6 mmol/L, call prescriber for additional orders; For potassium 2.6-2.9 mmol/L, give 40 mEq every 2 hours x 2 doses and obtain stat potassium level 2 hours after the 2nd dose; For potassium 3.0-3.1 mmol/L, give 40 mEq every 2 hours x 2 doses; For potassium 3.2-3.5 mmol/L, give 40 mEq x 1 dose. Tablets should not be crushed, chewed, dissolved, or otherwise manipulated. Capsules may be opened and sprinkled on a spoonful of applesauce or pudding, but the contents of the capsule should not be crushed or chewed., Indications: hypokalemia 0608 (Given - Provider: Nohelia Moore, [place]) 0556 (Given - Provider: Soniya López RN) prochlorperazine (COMPAZINE) injection 5 mg 5 mg, intravenous, Administer over 2 Minutes, Every 6 hours PRN, nausea, vomiting, Second line for nausea, Starting on Sat06/17/24 at 1548 1220 (Given - Provider: Marcela Hackett RN) sodium chloride 0.9% flush 0.5-20 mL 0.5-20 mL, intra-catheter, As needed, line care, Starting on Sat06/14/24 at 1522, Flush volume based on line type and size. Flush before and after each use. , Indications: Flushing sodium chloride 0.9% flush 0.5-20 mL 0.5-20 mL, intra-catheter, As needed, line care, Starting on Sat06/19/24 at 0943, Pre-Procedure (IR), Flush volume based on line type and size. Flush before and after each use. sodium chloride 0.9% flush 0.5-20 mL 0.5-20 mL, intra-catheter, As needed, line care, Starting on Sat06/19/24 at 0910, Pre-Op/Floor (IR), Flush volume based on line type and size. Flush before and after each use. , Indications: Flushing sodium chloride 0.9% flush 10-20 mL 10-20 mL, intra-catheter, As needed, line care, with each use, Starting on Sat06/19/24 at 0910, Pre-Op/Floor (IR), Flush volume based on line type, size, and protocol. Linked Groups Order Group 1: ondansetron ODT (ZOFRAN-ODT) disintegrating tablet 4 mgJump to med 4 mg, oral, Every 6 hours PRN, nausea, vomiting, Starting on Sat06/19/24 at 1148, Indications: nausea and vomiting Or ondansetron (ZOFRAN) injection 4 mgJump to med 4 mg, intravenous, Administer over 2 Minutes, Every 6 hours PRN, nausea, vomiting, if not tolerating PO, Starting on Sat06/19/24 at 1148, Indications: nausea and vomiting documented in this encounter Orders Medications Ordered That Brett ht Not Have Been Administered Count Last Ordered Date First Ordered Date Carrier Fluids for Secondary Infusion - 0.9% Sodium Chloride 3 06/19/2024 06/14/2024 docusate sodium (COLACE) capsule 100 mg 1 1 08/20/2023 DOXOrubicin (ADRIAMYCIN) 50 mg in ioversoL (OPTIRAY 320) 5 mL intra-arterial 1 06/19/2024 ondansetron ODT (ZOFRAN-ODT) disintegrating tablet 4 mg 1 06/19/2024 sodium chloride 0.9% flush 0.5-20 mL 5 06/0706/14/2024 sodium chloride 0.9% flush 10-20 mL 1 06/19 sodium chloride 0.9% infusion 1 06/19/2024 magnesium sulfate 6 g in sod ium chloride 0.9% 250 mL IVPB 1 06/18/2024 oxyBUTYnin (DITROPAN) tablet 5 mg 1 024 lidocaine (LIDODERM) 5 % patch 2 patch 1 ondansetron (ZOFRAN) injection 4 mg 1 06/17 cefTRIAXone (ROCEPHIN) 1,000 mg/10 mL in sterile water (premix) 1,000 mg 1 06/16/2024 fentaNYL (SUBLIMAZE) preserv ative free injection 50 mcg 1 06/16/2024 haloperidol (HALDOL) injection 1 mg 1 06/16 HYDROmorphone (DILAUDID) injection 0.2 mg 1 06/16/2024 HYDROmorphone (DILAUDID) injection 0.4 mg 1 06/16/2024 iothalamate meglumine (CONRA Y) 60 % injection 1 06/16/2024 naloxone (NARCAN) 0.4 mg/mL injection 0.04-0.4 mg 1 06/16/2024 oxyCODONE (ROXICODONE) tablet 5 mg 1 2023 prochlorperazine (COMPAZINE) injection 5 mg 1 06/16/2024 sodium chloride 0.9% irrigation 1 heparin 100 unit/mL injection 100 Units 2 1 08/16/2023 acetaminophen (TYLENOL) tablet 1,000 mg 1 1 08/15/2023 HYDROcodone-acetaminophen (N ORCO) 5-325 mg per tablet 1 tablet 1 06/14/2024 lidocaine (ASPERCREME) 4 % patch 2 patch 1 06/14/2024 lidocaine-prilocaine (EMLA) 2.5-2.5 % cream 1 06/14/2024 losartan (COZAAR) tablet 25 mg 1 06/14/2024 Lab Orders Without Results Count Last Ordered D ate First Ordered Date PRO B-TYPE NATRIURETIC PEPTIDE 1 06/14/2024 Nursing Count Last Ordered Date First Orde red Date VERIFY INFORMED CONSENT 1 06/20/2024 SKIN PREP 1 06/19/2024 VOID HAT LINING BLOCKER TO OR 2 06/19/2024 Consult Count Last Ordered Date First Orde red Date IP CONSULT [facility] 1 024 IP CONSULT TO UROLOGY 1 06/15/2024 Admission Count Last Ordered Date First Orde red Date ADMIT TO INPATIENT 1 06/14/2024 Discharge Count Last Ordered Date First Orde red Date DISCHARGE PATIENT 1 06/20/2024 Case Request Count Last Ordered Date First Orde red Date CASE REQUEST OPERATING ROOM 1 06/16/2024 documented in this encounter Care Teams Oven Dauber Relationship Specialty Start Date End Date Julio César Briseno MD PCP - General 10/01/16 Eren Cr MD Referring Physician Medical Oncology 11/25/18 Yohana Bowen MD Radiation Oncologist Radiation Oncology 11/25/18 Alejo Mi MD [address] [place] [address] Referring Physician Nephrology 03/07/23 documented as of this encounter
--- OUTSIDE RECORDS SUMMARY | 2024-06-25 22:04 | XMS_ITS | Encounter Summary ---
Author Organization [facility] Address [address] [place] [address] Phone Care Team Providers Care Machine Sander Name Role Phone Julio César Briseno MD Primary Care Provider Eren Cr MD Unavailable [phone] Yohana Bowen MD Unavailable Alejo Mi MD Unavailable [phone] Reason for Visit * Reason Onset Date Comments exchange call/ER follow up 06/22/2024 Encounter Details Date Type Department Care Team (Late st Contact Info) Description 06/22/2024 Telephone [facility] [address] [place] [address] Eren Cr MD [address] [place] [address] exchange call/ER follow up Social History Tobacco Use Types Packs/Day Years [...] materials from doctor or pharmacy Never 11/07/2022 [facility] Utilities Answer Date Recorded In the past [...] often do you attend chur ch or roman catholic services? More than 4 times per year 06/20/2024 Do you belong to any clubs o r organizations such as gnosticism groups, unions, fraternal or athletic groups, or [...] any time in the past 12 m [facility], were you homeless or living in a [facility] (including now)? No 06/20/2024 Personal Safety Answer Date Recorded Have you ever been in or are you currently in a harmful physical or emotional relationship or is someone making you feel afraid or unsafe? Denies 06/16/2024 Comments No Sex and Gender Information Value Date Recorded Sex Assigned at Not on file Legal Sex Female 2:41 PM TALKBACK HOST Gender Identity Not on file Sexual Orientation Straight 02/19/2021 9: 29 AM CDT Occupation Industry Job Start Date Job End Date retired Not on file Not on file Not on file documented as of this encounter Miscellaneous Notes * Telephone Encounter - Sola Heredia - 06/22/2024 2:47 PM CST Patient called the after hours exchange 06/21 for c/o dizziness post TACE 06/20. Patient advised joanna seen in ER. Spoke with patient today who reports she was seen in local ER and given 2 liters of IVF and discharged home. Today she reports feeling much improved and denies any dizziness. No fevers n/v or other c/o. Patient resting when needed and will follow up in office with next octreotide injection. Patient thankful for call. BACK HOST documented in this encounter Plan of Treatment Not on file documented as of this encounter Visit Diagnoses Not on filedocumented in this encounter Care Teams Machine Sander Relationship Specialty Start Date End Date Julio César Briseno MD PCP - General 10/01/16 Eren Cr MD Referring Physician Medical Oncology 11/25/18 Yohana Bowen MD Radiation Oncologist Radiation Oncology 11/25/18 Alejo Mi MD [address] [place] [address] Referring Physician Nephrology 03/07/23 documented as of this encounter
--- OUTSIDE RECORDS SUMMARY | 2024-06-25 22:04 | XMS_ITS | Encounter Summary ---
Author Organization [facility] [employer] [facility] Address [address] [place] [address] Phone Care Team Providers Care Pasting Machine Offbearer Name Role Phone Julio César Briseno MD Primary Care Provider [phone] Eren Cr MD Unavailable [phone] Yohana Bowen MD Unavailable Alejo Mi MD Unavailable [phone] Reason for Visit * Reason Onset Date Comments Vomiting 06/13/2024 Encounter Details Date Type Department Care Team (Late st Contact Info) Description 06/13/2024 Telephone [facility] Marrow Trans[facility] Floor [address] [place] [address] Sunshine George RN Vomiting Social History Tobacco Use Types Packs/Day Years [...] materials from doctor or pharmacy Never 11/07/2022 AUDIT-C Answer Date Recorded Frequency of Alcohol Consumption Not on file 05/26/2024 Q2: How many drinks containi ng alcohol do you have on a typical day when you are drinking? Patient does not drink Frequency of Binge Drinking Not on file 05/08 Personal Safety Answer Date Recorded Have you ever been in or are you currently in a harmful physical or emotional relationship or is someone making you feel afraid or unsafe? Denies 06/13/2024 Comments No Sex and Gender Information Value Date Recorded Sex Assigned at Not on file Legal Sex Female 2:41 PM MAGNETIC TAPE TYPEWRITER OPERATOR Gender Identity Not on file Sexual Orientation Straight 02/19/2021 9: 29 AM CDT Occupation Industry Job Start Date Job End Date retired Not on file Not on file Not on file documented as of this encounter Miscellaneous Notes * Telephone Encounter - Sunshine George RN - 06/13/2024 2:49 PM MAGNETIC TAPE TYPEWRITER OPERATOR Oncology After-Hours Outpatient Call Patient: La Chung 1950 Call date: 06/13/24 Caller: Caroline Reason for Call: May I bring my mom in for fluids today? She has been vomiting all day Spoke withChristy, she reports her mom with worsening nausea and has not been able to keep anything down today. She thinks it may be nerves related to upcoming procedure. Pt is afebrile, no other symptoms of infection. Recommendation: Pt to go to [facility] for eval at 430pm. Shanell verbalized understanding of where to go and agreeable to plan of care. Primary oncologist team updated via [facility] Sunshine George RN ETIC TAPE TYPEWRITER OPERATOR documented in this encounter Plan of Treatment Not on file documented as of this encounter Visit Diagnoses Not on filedocumented in this encounter Additional Health Concerns Infection Onset Date Last Indicated Resolved Time COVID: Suspected 06/13/2024 06/13/2024 06/13/2024 6:39 PM MAGNETIC TAPE TYPEWRITER OPERATOR documented as of this encounter Care Teams Pasting Machine Offbearer Relationship Specialty Start Date End Date Julio César Briseno MD PCP - General 10/01/16 Eren Cr MD Referring Physician Medical Oncology 11/25/18 Yohana Bowen MD Radiation Oncologist Radiation Oncology 11/25/18 Alejo Mi MD [address] [place] [id number] Referring Physician Nephrology 03/07/23 documented as of this encounter
--- OUTSIDE RECORDS SUMMARY | 2024-06-25 22:04 | XMS_ITS | Encounter Summary ---
Author Organization [facility] Address [address] [place] [address] Care Team Providers Care Profiler Name Role Phone Julio César Briseno MD Primary Care Provider [phone] Eren Cr MD Unavailable Yohana Bowen MD Unavailable Alejo Mi MD Unavailable [phone] Reason for Visit * Auth/Cert (Routine) Specialty Diagnoses / Procedures Referred By Contac t Referred To Contact Diagnoses History of malignant neuroendocrine tumor ANNE-MARIE (acute kidney injury) (HCC) 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 Procedures NA Referral ID Status Reason Start Date Expiration Date Visits Re quested Visits Authorized [id number] 1 1 Encounter Details Date Type Department Care Team (Late st Contact Info) Description 06/16/2024 3:00 PM CULINARY INTERN Anesthesia Event Operating Room [address] [place] [id number] Elissa Rosales MD [address] [place] [address] Kobi Grullon MD [address] [place] [address] Anesthesia Record Procedure Summary Procedure Name Responsible Anesthesiologist Anesthesia Start Time Anesthesia Stop Time CYSTOSCOPY (Urethra) Elissa Rosales MD 06/16/24 150 0 06/16/24 1558 Events Date Time Event Comment 06/16/2024 1409 In Preop 1500 An Start 1503 In Room 1504 An Start Data 1515 An Induction The patient was reevaluated immediately before moderate or deep sedation use and before anesthesia induction. 1517 An LMA 1524 Proc Start 1527 Anesthesia Ready 1532 Proc Fin 1543 Airway Removed 1546 an stop data 1547 Out of Room 1558 Handoff to RN I completed my handoff to the receiving nurse during which we: 1. Patient identified 2. Responsible provider identified 3. Pertinent medical history reviewed 4. Procedure type and surgical course discussed 5. Intraoperative anesthetic management and any significant issues discussed 6. Expectations and concerns for postop period discussed 7. Questions solicited from receiving nurse 8. Patient disposition at the time of handoff: PACU 1558 An Stop Meds Name Total propofol 172.75 mg fentaNYL 50 mcg phenylephrine 100 mcg/mL 100 mcg ondansetron PF (ZOFRAN) 2 mg/mL injectio n 4 mg cefTRIAXone (ROCEPHIN) 1,000 mg/10 mL in sterile water (premix) 1,000 mg 1,000 mg sodium chloride 0.9% infusion 600 mL * Agents Name O2% N2O O2 N2O Air Sevoflurane Inspired Sevoflurane * Blood No blood administrations on file. Lines, Drains, and Airways Type Details Placement Removal Colostomy Retired 04/13/19; 182; End; RLQ 04/13/19 182 by Thais Julio RN Implanted Port Placement Date: 09/14/21; Placement Time: 1448; Type: Power (per VIR notes); Orientation: Right; Location: Chest; Inserted by: Sarah Garzon PA-C 09/14/21 1448 by Laurita Rodriges RN Supraglottic Airway Placement Date: 06/16/24; Placement Time: 153 (created via procedure documentation); Mask Ventilation: 1; Size: 4; Insertion Attempts: 1; Removal Date: 06/16/24; Removal Time: 1545 06/16/24 1531 by Danielle Kirk CRNA 06/16/24 1545 by Danielle Kirk CRNA documented in this encounter Social History Tobacco Use Types Packs/Day Years [...] on file Legal Sex Female 2:41 PM CULINARY INTERN Gender Identity Not on file Sexual Orientation Straight 02/19/2021 9: 29 AM CDT Occupation Industry Job Start Date Job End Date retired Not on file Not on file Not on file documented as of this encounter OR Notes * Anesthesia Postprocedure Evaluation - Mya Mcfadden DO - 06/16/2024 5:51 PM CST Patient: La Chung Procedure Summary Date: 06/16/24 Room / Location: [facility] OR POD 1 ROOM 325 / [facility] OR POD 1 Anesthesia Start: 1500 Anesthesia Stop: 1558 Procedures: CYSTOSCOPY (Urethra) PLACEMENT STENT - URETERAL (Right: Ureter) PYELOGRAM - RETROGRADE (Right: Perineum) Diagnosis: ANNE-MARIE (acute kidney injury) (HCC) 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 (ANNE-MARIE (acute kidney injury) (HCC) [N17.9]) (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 [N13.1]) Surgeons: Mela Dejesus MD Responsible Provider: Elissa Rosales MD Anesthesia Type: general TIVA ASA Status: 4 Anesthesia Type: general TIVA Last vitals BP 149/52 Pulse 90 Temp 37 ??C (98.6 ??F) (Continuous Temporal Temperature) Resp 21 SpO2 96% Anesthesia Post Evaluation Patient location during evaluation: PACU Patient participation: complete - patient participated Level of consciousness: fully awake Pain score: 0 Pain management: adequate Airway patency: adequate Evidence of recall: no Cardiovascular status: acceptable Respiratory status: acceptable Hydration status: acceptable Pt is: normothermic Nausea/Vomiting status: none No notable events documented. NARY INTERN * Anesthesia Procedure Notes - Danielle Kirk CRNA - 06/16/2024 3:30 PM CULINARY INTERN Associated Order(s): Airway Airway Patient location: OR Urgency: elective Indications for airway management: anesthesia Difficult airway: no Staff: Supervising provider: Elissa Rosales MD Placed by: BUSINESS DEVELOPMENT CONSULTANT: Danielle Kirk CRNA Emergent airway documentation: Risks and benefits discussed: yes Consent obtained: yes Consent given by: patient Airway prep: Preoxygenated: yes Patient position: sniffing Mask difficulty assessment: 1 - vent by mask Spontaneous ventilation during airway: absent Sedation level during airway: GA Final airway details: Final airway type: supraglottic airway Final supraglottic airway: IGel SGA size: 4 Number of attempts: 1 NARY INTERN * Anesthesia Preprocedure Evaluation - Elissa Rosales MD - 06/16/2024 3:30 PM CST Images from the original note were not included. Anesthesia Evaluation La Chung is a 73 y.o. female CYSTOSCOPY (Urethra) PLACEMENT STENT - URETERAL (Right: Ureter) PYELOGRAM - RETROGRADE (Right: Perineum) Pre-Op Diagnosis Codes: * ANNE-MARIE (acute kidney injury) (HCC) [N17.9] * 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 [N13.1] HISTORY Past Medical History Information obtained from: patient. Information obtained during: In Person Neurological + Psychiatric history - anxiety + Headaches Cardiovascular + Hypertension - hypertension. Hepatic / Heme + Liver disease + History of anemia + History of thrombocytopenia Hematological / Oncological + Solid tumor Gastrointestinal + GERD Renal / + Renal disease - ARF + Renal failure/insuffiency Musculoskeletal/Pain + Osteoarthritis Endocrine / Other + Thyroid disease - hypothyroidism + Metabolic disorder + Obesity (BMI >30) + Cancer history- current cancer and metastatic cancer. Cancer type: metastatic neuroendocrine tumor. + Rheumatological disease Comments: Grandson with questionable history of MH, no testing done Growth / Development + Development / behavior Functional Capacity Functional capacity: 4-6 METs Review of Systems + SOB Comments: exhaustion Patient Active Problem List Diagnosis Date Noted ANNE-MARIE (acute kidney injury) (HCC) and Mild [...] this procedure TOTAL KNEE ARTHROPLASTY Left 2015 OB History 6 Para 4 Term 4 0 AB 2 Living 4 SAB 2 IAB Ectopic Multiple Live Births Allergies Allergen Reactions Morphine Blisters and Rash Ezetimibe-Simvastatin Muscle pain, Other (See comments) and Unknown Muscle weakness Ramipril Cough Taking? Last Dose Start Date End Date Provider 0.9 % sodium chloride ([facility] sodium chloride 0.9%) injection -- -- -- Levon Kee MD 0.9 % sodium chloride (sodium chloride 0.9%) 0.9% infusion -- 05/22/23 -- Levon Kee MD amLODIPine (NORVASC) 5 mg tablet -- 09/25/23 -- Levon Kee MD amoxicillin 500 mg capsule More than a month 01/27/24 -- Levon Kee MD ascorbic acid, vitamin C, 500 mg capsule -- 07/04/16 -- Levon Kee MD cholecalciferol (VITAMIN D-3) 1,000 unit () -- 11/16/22 03/17/24 Alejo Mi MD Take 1 tablet/capsule (1,000 Units total) by mouth daily Patient taking differently: Take 1 tablet/capsule (1,000 Units total) by mouth every morning clotrimazole-betamethasone (LOTRISONE) cream -- -- -- Levon Kee MD coenzyme [id number] 100-5 mg-unit capsule -- -- -- Levon Kee MD denosumab (Xgeva) 120 mg/1.7 mL (70 mg/mL) injection -- -- -- Levon Kee MD diphenoxylate-atropine (LOMOTIL) 2.5-0.025 mg per tablet Past Month 02/14/21 -- Eren Cr Jr., MD Take 1 tablet by mouth 4 (four) times a day as needed for diarrhea Notes: Patient states she is not currently taking medication DULoxetine DR (CYMBALTA) 30 mg capsule -- -- -- Levon Kee MD ergocalciferol (VITAMIN D) 50,000 unit capsule () -- 12/24/23 03/11/24 Billie Raymundo NP Take 1 capsule (50,000 Units total) by mouth once a week for 12 doses Patient not taking: Reported on 01/14/2024 fluticasone propionate (FLONASE) 50 mcg/actuation nasal spray -- -- -- Levon Kee MD heparin 100 unit/mL solution -- -- -- Levon Kee MD levothyroxine (SYNTHROID) 100 mcg tablet 06/13/2024 11/28/23 11/27/24 Leila Gaytan MD Take 1 tablet (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) 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 lidocaine-prilocaine (lidocaine-prilocaine) cream -- 09/19/21 -- Eren Cr Jr., MD Apply topically as needed for pain Apply a generous amount topically to port site 1 hour prior to lab/treatment, do not rub in, and cover with non absorbant dressing Patient taking differently: Apply 1 g (1 Application total) topically as needed for pain Apply a generous amount topically to port site 1 hour prior to lab/treatment, do not rub in, and cover with non absorbant dressing loperamide HCl (IMODIUM A-D ORAL) -- 11/23/20 -- Levon Kee MD LORazepam (ATIVAN) 0.5 mg tablet -- 08/21/21 -- Eren Cr Jr., MD Take 1 tablet 1 hour prior to MRI exam, may repeat dose if needed 15 minutes prior to MRI Patient taking differently: Take 1 tablet (0.5 mg total) by mouth every 8 (eight) hours as needed for anxiety (MRI) Take 1 tablet 1 hour prior to MRI exam, may repeat dose if needed 15 minutes prior to MRI losartan (COZAAR) 25 mg tablet -- 07/10/23 -- Levon Kee MD octreotide (SandoSTATIN) 100 mcg/mL injection -- -- -- Levon Kee MD ondansetron (ZOFRAN) 8 mg tablet -- 03/18/24 -- Eren Cr MD TAKE 1 TABLET EVERY 8 HOURS NEEDED FOR NAUSEA OR VOMITING ostomy supplies misc -- 09/21/19 -- Greyson Reeves MD Patient has colostomy and needs Cavilon 3M skin barrier film to manage. oxyBUTYnin (DITROPAN) 5 mg tablet -- -- -- Levon Kee MD prochlorperazine (COMPAZINE) 10 mg tablet () -- 03/23/22 01/24/24 Eren Cr Jr., MD Take 1 tablet (10 mg total) by mouth every 6 (six) hours as needed for nausea Patient taking differently: Take 1 tablet (10 mg total) by mouth every 6 (six) hours as needed for nausea or vomiting simvastatin (ZOCOR) 20 mg tablet Past Week -- -- Levon Kee MD sodium chloride 0.9 % solution -- 09/14/22 -- Eren Cr Jr., MD Ongoing Comment Willem Sung RN 03/15/2023 8:49 AM 09/13/2022 -- No severe interactions noted at start of care. -- Mj Lima RN 11/14/2022- No severe interactions noted Nayla Kaiser RN 03/13/2023 No severe reactions noted Raúl Sung, RN Current Facility-Administered Medications: [Transfer Hold] acetaminophen (TYLENOL) tablet 650 mg, 650 mg, oral, Q6H PRN, 650 mg at 06/15/24 1000 [Transfer Hold] amLODIPine (NORVASC) tablet 5 mg, 5 mg, oral, Daily, 5 mg at 06/16/24 09 [Transfer Hold] Carrier Fluids for Secondary Infusion - 0.9% Sodium Chloride, 30 mL, intravenous, PRN [Transfer Hold] DULoxetine DR (CYMBALTA) extended release capsule 30 mg, 30 mg, oral, Daily, 30 mg at 06/16/24 0922 [Transfer Hold] enoxaparin (LOVENOX) syringe 30 mg, 30 mg, subcutaneous, Daily- 2100, 30 mg at 06/15/24 2141 [Transfer Hold] heparin 10 unit/mL flush 50 Units, 5 mL, intra-catheter, PRN, 50 Units at 06/15/24 1047 [Transfer Hold] HYDROcodone-acetaminophen (NORCO) 5-325 mg per tablet 1 tablet, 1 tablet, oral, Q4HPRN [Transfer Hold] hydrOXYzine (ATARAX) tablet 25 mg, 25 mg, oral, Nightly PRN, 25 mg at 06/14/242111 [Transfer Hold] levothyroxine (SYNTHROID) tablet 100 mcg, 100 mcg, oral, Daily - 0600, 100 mcg at 06/16/24 0604 [Transfer Hold] lidocaine (ASPERCREME) 4 % patch 2 patch, 2 patch, transdermal, Q24H [Transfer Hold] lidocaine-prilocaine (EMLA) 2.5-2.5 % cream, , topical, PRN [Held by Provider] losartan (COZAAR) tablet 25 mg, 25 mg, oral, Daily [Transfer Hold] ondansetron (ZOFRAN) injection 4 mg, 4 mg, intravenous, Q4H PRN, 4 mg at 06/14/241949 [Transfer Hold] pantoprazole (PROTONIX) 40 mg in sodium chloride 0.9% 10 mL IV Syringe, 40 mg, intravenous, BID, 40 mg at 06/16/24921 [Transfer Hold] prochlorperazine (COMPAZINE) injection 5 mg, 5 mg, intravenous, BID PRN, 5 mg at 06/14/242112 [Transfer Hold] sodium chloride 0.9% flush 0.5-20 mL, 0.5-20 mL, intra-catheter, Q8H MAUREEN, 10 mL at 06/14/242115 [Transfer Hold] sodium chloride 0.9% flush 0.5-20 mL, 0.5-20 mL, intra-catheter, PRN sodium chloride 0.9% infusion, 50 mL/hr, intravenous, Continuous, Last Rate: 50 mL/hr at 06/16/24 1442, 50 mL/hr at 06/16/24 1442 Facility-Administered Medications Ordered in Other Encounters: amLODIPine (NORVASC) tablet 5 mg, 5 mg, oral, Daily, 5 mg at 06/13/24 1723 L-arginine 1.25%/L-lysine 1.25% infusion 1,000 mL, 1,000 mL, intravenous, Continuous phenylephrine (RAYMOND-SYNEPHRINE) 1 mg/10 mL (100 mcg/mL) in sodium chloride 0.9% (premix), , intravenous, PRN, 100 mcg at 06/16/24 1521 propofoL (DIPRIVAN) 10 mg/mL IV, , intravenous, Continuous PRN, Last Rate: 38.25 mL/hr at 06/16/24 1528, 20 mg at 06/16/24 1529 Social History Tobacco Use Smoking Status Never Smokeless Tobacco Never Alcohol Use: Unknown (05/26/2024) AUDIT-C Frequency of Alcohol Consumption: Not on file Average Number of Drinks: Patient does not drink Frequency of Binge Drinking: Not on file Substance and Sexual Activity Drug Use No Family History Problem Relation Age of Onset [...] hyperthermia, no work up at this time Vitals: 06/16/24 1440 06/16/24 1443 06/16/24 1450 BP: Pulse: 77 81 78 Resp: 18 20 24 Temp: 37.6 ??C (99.7 ??F) 37.6 ??C (99.7 ??F) 37.6 ??C (99.7 ??F) SpO2: 95% 93% 96% PT: No results found for requested labs within last 30 days. INR: No results found for requested labs within last 30 days. APTT: No results found for requested labs within last 30 days. Hgb A1C: No results found for requested labs within last 30 days. CBC RBC: 06/16/2024: 3.53 M/cumm (L) RDW: No results found for requested labs within last 30 days. MCHC: 06/16/2024: 31.4 g/dL (L) MCH: 06/16/2024: 31.2 pg MCV: 06/16/2024: 99.2 fL (H) Hct: 06/16/2024: 35.0 % (L) Hgb: 06/16/2024: 11.0 g/dL (L) WBC: 06/16/2024: 11.2 K/cumm (H) MPV: 06/16/2024: 10.1 fL Platelets: 06/16/2024: 149 K/cumm (L) RDW CV: 06/16/2024: 15.0 % (H) RDW Sd: 06/16/2024: 54.4 fL (H) BMP Glucose: 06/16/2024: 107 mg/dL Calcium: 06/16/2024: 8.7 mg/dL Sodium: 06/16/2024: 141 mmol/L Potassium: 06/16/2024: 4.0 mmol/L CO2: 06/16/2024: 22 mmol/L Chloride: 06/16/2024: 108 mmol/L BUN: 06/16/2024: 17 mg/dL Creatinine: 06/16/2024: 1.97 mg/dL (H) STOP-Bang Total Score: 1 DOS Physical Exam Medical history, medications, and allergies reviewed. Attestation: This PAT evaluation 06/16/2024. Airway Exam: Mallampati: IV Cervical ROM: FROM TM distance: >4 Patient presents with poor mouth opening and thick neck. Cardiovascular Exam: Rate: regular Rhythm: regular Pulmonary Exam: LCTA, bilat EENT Exam: trachea midline Dental Exam: Appears intact Skin Exam: Skin is warm. Current state: Patient's current state is cooperative and interactive. Lines/Drains/Tubes/Devices Lines in situ: port Anesthesia Plan ASA 4 Planned anesthesia: General TIVA Team communication plan: LMA Induction: Induction: intravenous. Postoperative Plan: No plan for postoperative opioid use. No postoperative mechanical ventilation intended. Patient's planned disposition post procedure is Floor. Informed Consent: Discussed plan with BUSINESS DEVELOPMENT CONSULTANT. Anesthesia plan and risks discussed with patient, spouse and daughter. Plan and Consent Comments: Tiva in face of [facility] Octreotide in room in face of carcinoid Consent and Attending signature: I and/or my designee have discussed the anesthesia plan, benefits, possible alternatives, parental presence at time of induction (if indicated), and clinically relevant risks that may include dental injury, unintentional awareness, and/or other complications. The patient and/or parent/legal guardian understand, and agree to proceed. All questions answered. NARY INTERN documented in this encounter Plan of Treatment Not on file documented as of this encounter Procedures Procedure Name Priority Date/Time Associated Diagnosis Comments MN AN PROCEDURE PLACEHOLDER Routine 06/16/2024 3:30 PM CULINARY INTERN MN AN ELECTIVE SUPRAGLOTTIC AIRWAY Routine 06/16/2024 3:30 PM CULINARY INTERN documented in this encounter Results * MN AN ELECTIVE SUPRAGLOTTIC AIRWAY, MN AN PROCEDURE PLACEHOLDER (06/16/2024 3:30 PM CULINARY INTERN) Narrative Danielle Kirk CRNA - 06/16/2024 3:30 PM CULINARY INTERN Danielle Kirk CRNA ? 06/16/2024 ??3:31 PM Airway Patient location: OR Urgency: elective Indications for airway management: anesthesia Difficult airway: no Staff: Supervising provider: Elissa Rosales MD Placed by: BUSINESS DEVELOPMENT CONSULTANT: Danielle Kirk CRNA Emergent airway documentation: Risks [...] Rosales MD ANESTHESIA ORDERABLES Final R esult documented in this encounter Visit Diagnoses Not on filedocumented in this encounter Administered Medications Inactive Administered Medications - up to 3 most recent administrations Medication Order MAR Action Action Date Dose Rate Site cefTRIAXone (ROCEPHIN) 1,000 mg/10 mL in sterile water (premix) 1,000 mg 1,000 mg, intravenous, at 120 mL/hr, Administer over 5 Minutes, Once, On Sat06/16/24 at 1445, For 1 dose, Intra-Op, Indications: Prophylaxis, SurgicalIndications:Prophylaxis, Surgical Given 06/16/2024 3:19 PM CULINARY INTERN 1,000 mg fentaNYL (SUBLIMAZE) preservative free injection intravenous, As needed, Starting on Sat06/16/24 at 1507, Anesthesia Intra-op Given 06/16/2024 3:18 PM CULINARY INTERN 25 mcg Given 06/16/2024 3:07 PM CULINARY INTERN 25 mcg ondansetron (ZOFRAN) injection intravenous, Administer over 2 Minutes, As needed, Starting on Sat06/16/24 at 1537, Anesthesia Intra-op Given 06/16/2024 3:37 PM CULINARY INTERN 4 mg phenylephrine (RAYMOND-SYNEPHRINE) 1 mg/10 mL (100 mcg/mL) in sodium chloride 0.9% (premix) intravenous, As needed, Starting on Sat06/16/24 at 1521, Anesthesia Intra-op Given 06/16/2024 3:21 PM CULINARY INTERN 100 mcg propofoL (DIPRIVAN) 10 mg/mL IV intravenous, Continuous PRN, Starting on Sat06/16/24 at 1518, Anesthesia Intra-op Rate/Dose Change 06/16/2024 3:31 PM CULINARY INTERN 100 mcg/kg/min 45 mL/hr Given 06/16/2024 3:29 PM CULINARY INTERN 20 mg Rate/Dose Change 06/16/2024 3:28 PM CULINARY INTERN 85 mcg/kg/min 38.2 5 mL/hr documented in this encounter Care Teams Profiler Relationship Specialty Start Date End Date Julio César Briseno MD PCP - General 10/01/16 Eren Cr MD Referring Physician Medical Oncology 11/25/18 Yohana Bowen MD Radiation Oncologist Radiation Oncology 11/25/18 Alejo Mi MD [address] [address] Referring Physician Nephrology 03/07/23 documented as of this encounter
--- OUTSIDE RECORDS SUMMARY | 2024-06-25 22:04 | XMS_ITS | Encounter Summary ---
Author Organization [facility] Address [address] [place] [address] Phone Care Team Providers Care Superintendent Radio Communications Name Role Phone Julio César Briseno MD Primary Care Provider Eren Cr MD Unavailable [phone] Yohana Bowen MD Unavailable Alejo Mi MD Unavailable [phone] Encounter Details Date Type Department Care Team (Late st Contact Info) Description 06/21/2024 Telephone [facility] Oncology [address] [place] [address] Shaniqua Lawrence, RN Social History Tobacco Use Types Packs/Day Years [...] materials from doctor or pharmacy Never 11/07/2022 [facility] Utilities Answer Date Recorded In the [...] often do you attend chur ch or judaism services? More than 4 times per year 06/20/2024 Do you belong to any clubs o r organizations such as christianity groups, unions, fraternal or athletic groups, or [...] any time in the past 12 m [facility], were you homeless or living in a [place] [facility] [place] facility (including now)? No 06/20/2024 Personal Safety Answer Date Recorded Have you ever been in or are you currently in a harmful physical or emotional relationship or is someone making you feel afraid or unsafe? Denies 06/16/2024 Comments No Sex and Gender Information Value Date Recorded Sex Assigned at Not on file Legal Sex Female 2:41 PM [employer] Gender Identity Not on file Sexual Orientation Straight 02/19/2021 9: 29 AM CDT Occupation Industry Job Start Date Job End Date retired Not on file Not on file Not on file documented as of this encounter Miscellaneous Notes * Telephone Encounter - Shaniqua Lawrence RN - 06/21/2024 9:38 AM CST Patient called stating she was recently discharged from the hospital and was told to call if she became dizzy. Patient stated she was extremely dizzy and fell 2 separate times and thinks she hit her head. I advised patient to go to the ED for further evaluation. Patient and verbalized understanding. Shaniqua MIXER documented in this encounter Plan of Treatment Not on file documented as of this encounter Visit Diagnoses Not on filedocumented in this encounter Care Teams Superintendent Radio Communications Relationship Specialty Start Date End Date Julio César Briseno MD PCP - General 10/01/16 Eren Cr MD Referring Physician Medical Oncology 11/25/18 Yohana Bowen MD Radiation Oncologist Radiation Oncology 11/25/18 Alejo Mi MD [address] [address] Referring Physician Nephrology 03/07/23 documented as of this encounter
--- OUTSIDE RECORDS SUMMARY | 2024-06-25 22:04 | XMS_ITS | Encounter Summary ---
Author Organization [facility] Healthcare Address [address] [place] [address] Care Team Providers Care Ore Roaster Name Role Phone Julio César Briseno MD Primary Care Provider Eren Cr MD Unavailable [phone] Yohana Bowen MD Unavailable Alejo Mi MD Unavailable [phone] Encounter Details Date Type Department Care Team (Latest Contact Info) Description 06/13/2024 4:24 PM PROCESS OPERATOR - 06/13/2024 11:59 PM PROCESS OPERATOR Hospital Encounter [facility] ([facility] [address] [place] [id number] Dehydration (Primary Dx); Nausea; Hypertension, unspecified type [...] on file Legal Sex Female 2:41 PM PROCESS OPERATOR Gender Identity Not on file Sexual Orientation Straight 02/19/2021 9: 29 AM CDT Occupation Industry Job Start Date Job End Date retired Not on file Not on file Not on file documented as of this encounter Last Filed Vital Signs Vital Sign Reading Time Taken Comments Blood Pressure 184/79 06/13/2024 4:38 PM PROCESS OPERATOR Pulse 54 06/13/2024 4:28 PM PROCESS OPERATOR Temperature 36.4 ??C (97.5 ??F) 06/13/2024 4:28 PM CS T Respiratory Rate 16 06/13/2024 4:28 PM PROCESS OPERATOR Oxygen Saturation 98% 06/13/2024 4:28 PM PROCESS OPERATOR Inhaled Oxygen Concentration - - Weight - - Height - - Body Mass Index - - documented in this encounter Medications at Time [...] 1 tablet (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) by mouth global technical writer before breakfast 90 tablet 3 11/28/2023 lidocaine-priloca [...] or bladder pain) 20 tablet 06/20/2024 5 simvastatin (ZOCOR) 20 mg tablet Take 1 tablet (20 mg total) by mouth nightly 0.9 % sodium chloride ([facility] sodium chloride 0.9%) injectionIndicati ons:line care Infuse 10 mL into a venous catheter once a week On saturday 4 0.9 % sodium chloride (sodium chloride 0.9%) 0.9% infusion 05/22/2023 4 amoxicillin 500 mg capsule TAKE 4 CAPSULES BY MOUTH 1 HOUR BEFORE APPOINTMENT 01/27/2024 4 ascorbic acid, vitamin C, 500 mg capsuleIndication s:supplement Take 1 tablet by mouth global technical writer before breakfast 07/04/2016 4 clotrimazole-beta methasone (LOTRISONE) cream Apply 1 Application topically daily as needed (rash) 4 coenzyme [id number] 100-5 mg-unit capsuleIndication s:supplement Take 1 tablet by mouth global technical writer before breakfast 4 diphenoxylate-atr opine (LOMOTIL) 2.5-0.025 mg per tabletIndications :Chemotherapy-Ind uced Diarrhea Take 1 tablet by mouth 4 (four) times a day as needed for diarrhea 90 tablet 02/14/2021 4 ergocalciferol (VITAMIN D) 50,000 unit capsuleIndication s:Vitamin D Deficiency Take 1 capsule (50,000 Units total) by mouth once a week for 12 doses 12 capsule 2 12/24/2023 4 fluticasone propionate (FLONASE) 50 mcg/actuation nasal sprayIndications: Allergic Rhinitis Administer 2 sprays into each nostril daily as needed for rhinitis or allergies 4 heparin 100 unit/mL solutionIndicatio ns:Maintain Patency of Indwelling Vascular Catheter Infuse 5 mL (500 Units total) into a venous catheter once a week Fluids every -Heparin to flush 4 ipratropium (ATROVENT) 42 mcg (0.06 %) nasal spray [place] 1 spray twice a day by nasal route for 13 days. 04/28/2024 4 LORazepam (ATIVAN) 0.5 mg tabletIndications :MRI scan Take 1 tablet 1 hour prior to MRI exam, may repeat dose if needed 15 minutes prior to MRI 2 tablet 08/21/2021 4 losartan (COZAAR) 25 mg tablet Take 1 tablet every day by oral route. 07/10/2023 4 montelukast (SINGULAIR) 10 mg tablet Take 1 tablet (10 mg total) by mouth as needed (allergies) 4 sodium chloride 0.9 % solutionIndicatio ns:hydration Infuse 1,000 mL into a venous catheter once a week Patient to infuse 1000mL of Normal Saline via CADD Coreas pump set at 300mL/Hr once weekly.- Saturday09/14/2022 4 documented as of this encounter Discharge Disposition Disposition Code Departure Means Destination Discharge to home or self care documented in this encounter Progress Notes * Sharona Gomez NP - 06/13/2024 4:30 PM CST Oncology Medicine [facility] Patient is a 73 y.o. female with chief complaint of nausea/vomiting. 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 Patient receiving Octreotide; [id number]/09/28.Afinitor taken for 2 months but discontinue due to poor tolerance. Patient began treatment on CABINET study with Cabozantinib/Placebo on 07/21/21. Disease progression noted on CT 05/06/24. Tace to be performed next week. Patient reports onset of nausea/vomiting beginning at noon today, estimates 6-8 episodes, states occurs more with movement but denies sensation of room spinning or lightheadedness. She took Zofran and Ativan at 1515. Denies any nausea at this time. Voices concerns/anxiety about TACE procedure to beperformed on Saturday. Blood pressure elevated upon presentation at 202/67, rechecked now 184/79. Shedid not take her antihypertensive medication today. ONCOLOGIC HISTORY: Oncology History Overview Note DIAGNOSIS: well differentiated [...] time, she also underwent right colectomy [facility] [place] by Dr. Greyson Reeves. Biopsy revealed [...] Neuroendocrine tumor 01/06/2018 Initial Diagnosis Neuroendocrine tumor Past Medical History: Diagnosis Date Arthritis Family [...] this procedure TOTAL KNEE ARTHROPLASTY Left 2014 (Not in a hospital admission) Current Outpatient Medications Medication Sig Dispense Refill 0.9 % sodium chloride ([facility] sodium chloride 0.9%) injection Infuse 10 mL into a venous catheter once a week On saturday (Patient not taking: Reported on 01/14/2024) 0.9 % sodium chloride (sodium chloride 0.9%) 0.9% infusion (Patient not taking: Reported on 01/14/2024) amLODIPine (NORVASC) 5 mg tablet amoxicillin 500 mg capsule TAKE 4 CAPSULES BY MOUTH 1 HOUR BEFORE APPOINTMENT ascorbic acid, vitamin C, 500 mg capsule Take 1 tablet by mouth global technical writer before breakfast (Patient not taking: Reported on 12/24/2023) cholecalciferol (VITAMIN D-3) 1,000 unit Take 1 tablet/capsule (1,000 Units total) by mouth daily (Patient taking differently: Take 1 tablet/capsule (1,000 Units total) by mouth every morning) 90 tablet/capsule 3 clotrimazole-betamethasone (LOTRISONE) cream Apply 1 Application topically daily as needed (rash) (Patient not taking: Reported on 01/24/2024) coenzyme [id number] 100-5 mg-unit capsule Take 1 tablet by mouth global technical writer before breakfast (Patient not taking: Reported on 12/24/2023) denosumab (Xgeva) 120 mg/1.7 mL (70 mg/mL) injection Inject 1.7 mL (120 mg total) under the skin every 28 (twenty-eight) days diphenoxylate-atropine (LOMOTIL) 2.5-0.025 mg per tablet Take 1 tablet by mouth 4 (four) times a day as needed for diarrhea 90 tablet 0 ergocalciferol (VITAMIN D) 50,000 unit capsule Take [...] flush (Patient not taking: Reported on 12/24/2023) ipratropium (ATROVENT) 42 mcg (0.06 %) nasal spray [place] 1 spray twice a day by nasal route for 13 days. levothyroxine (SYNTHROID) 100 mcg tablet Take 1 tablet (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) by mouth global technical writer before breakfast 90 tablet 3 lidocaine-prilocaine (lidocaine-prilocaine) cream Apply topically as needed [...] 1 tablet every day by oral route. montelukast (SINGULAIR) 10 mg tablet Take 1 tablet (10 mg total) by mouth as needed (allergies) octreotide (SandoSTATIN) 100 mcg/mL injection Inject 1 mL (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) under the skin every 30 (thirty) days Last dose 11/15/22 ondansetron (ZOFRAN) 8 mg tablet TAKE 1 TABLET EVERY 8 HOURS NEEDED FOR NAUSEA OR VOMITING 90 tablet 11 ostomy supplies misc Patient has colostomy and needs Cavilon 3M skin barrier film to manage. 20 each 6 prochlorperazine (COMPAZINE) 10 mg tablet Take 1 tablet (10 mg total) by mouth every 6 (six) hours as needed for nausea (Patient taking differently: Take 1 tablet (10 mg total) by mouth every 6 (six)hours as needed for nausea or vomiting) 60 tablet 3 simvastatin (ZOCOR) 20 mg tablet Take 1 tablet (20 mg total) by mouth nightly sodium chloride 0.9 % solution Infuse 1,000 mL into a venous catheter once a week Patient to [id number] of Normal Saline via CADD Coreas pump set at 300mL/Hr once weekly.- Saturday (Patient not taking: Reported on 01/14/2024) Current Facility-Administered Medications Medication Dose Route Frequency Provider Last Rate Last Admin amLODIPine (NORVASC) tablet 5 mg 5 mg oral Daily Sharona Gomez NP dexAMETHasone (DECADRON) 4 mg/mL injection 4 mg 4 mg intravenous Once Sharona Gomez NP famotidine (PEPCID) 20 mg/50 mL in sodium chloride 0.9% (premix) 20 mg 20 mg intravenous Once Sharona Gomez NP ondansetron (ZOFRAN) injection 8 mg 8 mg intravenous Once Sharona Gomez NP sodium chloride 0.9% bolus 1,000 mL 1,000 mL intravenous Once Sharona Gomez NP Facility-Administered Medications Ordered in Other Encounters Medication Dose Route Frequency Provider Last Rate Last Admin L-arginine 1.25%/L-lysine 1.25% infusion 1,000 mL 1,000 mL intravenous Continuous Meagan Amaya MD Allergies Allergen Reactions Morphine Blisters and Rash Ezetimibe-Simvastatin Muscle pain, Other (See comments) and Unknown Muscle weakness Ramipril Cough Social History Tobacco Use Smoking status: Never Smokeless tobacco: Never Substance and Sexual Activity Drug use: No Sexual activity: Defer Partners: Male control/protection: Post-menopausal Alcohol Use: Unknown (05/26/2024) AUDIT-C Frequency of Alcohol Consumption: Not on file Average Number of Drinks: Patient does not drink Frequency of Binge Drinking: Not on file Family History Problem Relation Age of Onset [...] hyperthermia, no work up at this time Review of Systems Constitutional: Positive for appetite change. Negative for chills and fever. Feels weaker than normal. HENT: Throat is sore in a.m. but decreases during the day, ongoing for weeks. Respiratory: Short of breath going up and down stairs for years. Cardiovascular: Negative. Gastrointestinal: Positive for nausea and vomiting. Patient has colostomy. States stool is more formed since stopping Cabozantinib about a month ago. Genitourinary: Negative. Musculoskeletal: Back pain this morning, states lying on cough more frequently. Skin: Negative. Neurological: Negative. Psychiatric/Behavioral: Negative. Physical Exam Vitals reviewed. HENT: Mouth/Throat: Mouth: Mucous membranes are moist. Pharynx: Oropharynx is clear. Eyes: Conjunctiva/sclera: Conjunctivae normal. Pupils: Pupils are equal, round, and reactive to light. Cardiovascular: Rate and Rhythm: Regular rhythm. Pulses: Normal pulses. Heart sounds: Normal heart sounds. Pulmonary: Effort: Pulmonary effort is normal. Breath sounds: Normal breath sounds. Abdominal: General: Bowel sounds are normal. Palpations: Abdomen is soft. Comments: Colostomy. Musculoskeletal: Cervical back: Normal range of motion. Comments: Generalized weakness. Skin: General: Skin is warm and dry. Findings: Bruising present. Neurological: General: No focal deficit present. Mental Status: She is alert and oriented to person, place, and time. Psychiatric: Comments: Patient is anxious. Objective Vitals: Arrival Vitals [06/13/24 1628] Temp 36.4 ??C (97.5 ??F) Pulse 54 Resp 16 BP (!) 202/67 SpO2 98 % Temp src Oral Heart Rate Source Monitor Patient Position Sitting BP Location Right arm FiO2 (%) Most Recent : Vitals BP (!) 184/79 (BP Location: Left arm) Pulse 54 Temp 36.4 ??C (97.5 ??F) (Oral) Resp 16 SpO2 98% Lab/Radiology/Diagnostic Review: Laboratory review: Lab results in the last 12 hours: Recent Results (from the past 12 hours) CBC with auto differential Collection Time: 06/13/24 4:30 PM Result Value Ref Range WBC 10.1 (H) 3.8 - 9.9 K/cumm Hgb 12.0 11.9 - 15.5 g/dL Hct 37.4 35.6 - 45.5 % Plt 142 (L) 150 - 400 K/cumm MPV 9.7 9.1 - 12.3 fL RBC 3.78 (L) 3.90 - 5.20 M/cumm MCV 98.9 (H) 81.3 - 96.4 fL MCH 31.7 27.1 - 33.3 pg MCHC 32.1 (L) 32.3 - 35.7 g/dL RDW CV 14.6 11.1 - 14.9 % RDW SD 53.0 (H) 35.7 - 48.1 fL NRBC abs 0.00 0.00 - 0.01 K/cumm Comprehensive metabolic panel Collection Time: 06/13/24 4:30 PM Result Value Ref Range Sodium 139 135 - 145 mmol/L Potassium, pl 4.4 3.3 - 4.9 mmol/L Chloride 107 97 - 110 mmol/L CO2 22 22 - 32 mmol/L Anion gap 10 2 - 15 mmol/L BUN 18 6 - 25 mg/dL Creatinine 2.03 (H) 0.60 - 1.10 mg/dL Glucose 121 70 - 199 mg/dL Calcium 9.8 8.5 - 10.3 mg/dL Bilirubin, total 0.6 0.1 - 1.2 mg/dL Protein, pl 6.6 6.5 - 8.5 g/dL Albumin 4.2 3.5 - 5.0 g/dL Alk phos 85 40 - 130 Units/L ALT 14 7 - 45 Units/L AST 32 10 - 45 Units/L Magnesium Collection Time: 06/13/24 4:30 PM Result Value Ref Range Magnesium 1.9 1.4 - 2.5 mg/dL Phosphorus Collection Time: 06/13/24 4:30 PM Result Value Ref Range Phosphorus, pl 2.7 2.3 - 4.5 mg/dL eGFR Collection Time: 06/13/24 4:30 PM Result Value Ref Range eGFR 25 (L) >=60 mL/min/1.73 m2 Senior staff review Collection Time: 06/13/24 4:30 PM Result Value Ref Range Senior Staff Review Need Review POC Blood Gas and Chemistries, Arterial - Collection Time: 06/13/24 4:53 PM Result Value Ref Range Lactate, POC 1.3 0.7 - 2.2 mmol/L Hct, POC 37.0 36.3 - 45.3 % Total Hb, POC 12.2 11.9 - 15.5 g/dL Assessment /Plan 1. Nausea/vomiting: viral/infection/food borne. Routine labs obtained. Creatinine 2.03. Lactate: 1.3. Respiratory panel: results pending. Urine reflex: results pending. Zofran 8 mg IV. Pepcid 20 mg IV. Dexamethasone 4 mg IV. 2. Dehydration: nausea/vomiting/decreased intake. One liter of Normal Saline infused over 2 hours. 3. Hypertension: history of hypertension/disease process/anxiety. Norvasc 5 mg po x 1. Patient repeat blood pressure is 219/64. Manual blood pressure performed; similar in result. Denies headache, chest pain. shortness of breath. Discussion: Patient to be transferred to ER secondary to elevated systolic blood pressure. Patient and family updated. Report given to ER charge nurse. Patient transported via wheelchair with RN. Sharona Gomez NP Cosigned by Sandhya Chirinos MD at 06/17/2024 1:01 PM PROCESS OPERATOR ESS OPERATOR ESS OPERATOR documented in this encounter Nursing Notes * Shelbie Mcbride RN - 06/13/2024 4:30 PM CST Arrived at [facility] for Evaluation NVD weakness. Port was accessed, labs collected, RVP, Lactate, UA, bolus started, pepcid, dex and zofran given along with a dose of Norvasc. BP continued to rise 210/76 she was delivered to the ED for higher level of care. ESS OPERATOR documented in this encounter Plan of Treatment Pending Results Name Type Priority Associated Diagnoses Date /Time Senior staff review Lab STAT 06/13 4:30 PM PROCESS OPERATOR Scheduled Orders Name Type Priority Associated Diagnoses Orde r Schedule Senior staff review Lab STAT Once for 1 Occurrences starting 06/13/2024 until 06/13/2024 documented as of this encounter Procedures Procedure Name Priority Date/Time Associated Diagnosis Comments URINALYSIS AND REFLEX TO MICROSCOPIC AND CULTURE STAT 06/13/2024 6:05 PM PROCESS OPERATOR URINALYSIS, MICROSCOPIC ONLY STAT 06/13/2024 6:05 PM PROCESS OPERATOR RESPIRATORY PATHOGEN PANEL STAT 06/13/2024 4:56 PM PROCESS OPERATOR POC BLOOD GAS AND CHEMISTRIES, ARTERIAL Routine 06/13/2024 4:53 PM PROCESS OPERATOR EGFR STAT 06/13/2024 4:30 PM PROCESS OPERATOR SENIOR STAFF REVIEW STAT 06/13/2024 4 :30 PM PROCESS OPERATOR CBC WITH AUTO DIFFERENTIAL STAT 06/13/2024 4:30 PM PROCESS OPERATOR MANUAL DIFFERENTIAL STAT 06/13/2024 4 :30 PM PROCESS OPERATOR PHOSPHORUS STAT 06/13/2024 4:30 PM PROCESS OPERATOR MAGNESIUM STAT 06/13/2024 4:30 PM PROCESS OPERATOR COMPREHENSIVE METABOLIC PANEL STAT 06/13/2024 4:30 PM PROCESS OPERATOR documented in this encounter Results * (ABNORMAL) Urinalysis, microscopic only (06/13/2024 6:05 PM PROCESS OPERATOR) WBC, ur 6-10(A) 0 - 5 /HPF RBC, ur 3-5(A) 0 - 2 /HPF [facility] Epithelial cells, squamous, ur 1-5 0 - 5 /HPF [facility] Bacteria, ur Trace(A) [facility] Mucous, ur Present(A) [facility] Hyaline casts, ur 1-5 0 - 10 /LPF [facility] Culture Reflex Comment Reflex conditions for urine culture (WBC >10) not met. [facility] Urine, clean voided 06/13/2024 6:05 PM PROCESS OPERATOR 06/13/2024 6:14 PM PROCESS OPERATOR us Sharona Gomez [employer] LAB URINE ORDERABLES Mel badillo Result [facility] Department [place] [address] * (ABNORMAL) Urinalysis reflex to microscopic and culture Urine, clean voided (06/13/2024 6:05 PM PROCESS OPERATOR) Color, ur Straw Yellow Clarity, ur Clear Clear [facility] Specific gravity, ur 1.015 1.003 - 1.030 [facility] pH, urine 6.0 [facility] Comment: Interpretive Data ? Urine pH is affected by diet, medications, systemic acid-base disturbances, and renal tubular function. ??pH may affect urinary stone formation. ??For example, urine pH below 6.0 may help reduce the tendency for calcium phosphate stones and pH greater than 6.0 may reduce the tendency for uric acid stone formation. Source: [facility] Current Interpretive Data was last revised on 2017 Protein, ur ql 1+(A) Negative [facility] Glucose, ur ql Negative Negative [facility] Ketones, ur Trace Negative [facility] Bilirubin, ur Negative Negative [facility] Blood, ur 1+(A) Negative [facility] Urobilinogen, ur <2.0 <2.0 mg/dL [facility] Nitrite, ur Negative Negative [facility] Leukocyte esterase, ur 1+(A) Negative [facility] UA reflex comment Reflex to microscopic UA will be performed. [facility] Urine, clean voided 06/13/2024 6:05 PM PROCESS OPERATOR 06/13/2024 6:14 PM PROCESS OPERATOR Sharona Gomez NP LAB MICROBIOLOGY - GENERA L ORDERABLES Final Result [facility] Department [place] [address] * Respiratory pathogen panel Nasopharyngeal (06/13/2024 4:56 PM PROCESS OPERATOR) Influenza A RNA Not Detected Not Detected Influenza B RNA Not Detected Not Detected [facility] RSV RNA Not Detected Not Detected [facility] COVID-19 RNA Not Detected Not Detected [facility] Coronavirus 229E RNA Not Detected Not Detected [facility] Coronavirus HKU1 RNA Not Detected Not Detected [facility] Coronavirus NL63 RNA Not Detected Not Detected [facility] Coronavirus OC43 RNA Not Detected Not Detected [facility] Adenovirus DNA Not Detected Not Detected [facility] Metapneumovirus RNA Not Detected Not Detected [facility] Rhinovirus/Enterov irus RNA Not Detected Not Detected [facility] Parainfluenza 1 RNA Not Detected Not Detected [facility] Parainfluenza 2 RNA Not Detected Not Detected [facility] Parainfluenza 3 RNA Not Detected Not Detected [facility] Parainfluenza 4 RNA Not Detected Not Detected [facility] B. pertussis DNA Not Detected Not Detected [facility] B. parapertussis DNA Not Detected Not Detected [facility] C. pneumoniae DNA Not Detected Not Detected [facility] M. pneumoniae DNA Not Detected Not Detected [facility] Nasopharyngeal 06/13/2024 4: 56 PM PROCESS OPERATOR 06/13/2024 5:34 PM PROCESS OPERATOR Narrative [facility] - 06/13/2024 6:38 PM PROCESS OPERATOR Is the Patient experiencing symptoms consistent with COVID?->Yes Surveillance testing for transplant patient?->No ??Interpretive Data The [employer] Film[employer] Respiratory Panel (RP2.1) assay is a [...] assay has FDA clearance for testing of [employer]ER swabs. ??The performance of additional specimen types has been assessed by the performing laboratory. ??The performance characteristics of this assay have been determined by [facility]. Current interpretive data was last revised on 22. Sharona Gomez [employer]ER LAB MICROBIOLOGY - GENERA L ORDERABLES Final Result Performing Organization Address City/[facility] Co de Phone Number [facility] Department [place] [address] * POC Blood Gas and Chemistries, Arterial - (06/13/2024 4:53 PM PROCESS OPERATOR) [facility] Lactate, POC 1.3 0.7 - 2.2 mmol/L Hct, POC 37.0 36.3 - 45.3 % [facility] Total Hb, POC 12.2 11.9 - 15.5 g/dL [facility] Blood 06/13/2024 4:53 PM PROCESS OPERATOR 06/13/2024 4:53 PM PROCESS OPERATOR Eren Cr MD LAB POCT ORDERABLES - DEVICE Final Result Performing Organization Address City/[facility] Co de Phone Number [facility] Department [place] [address] * (ABNORMAL) Manual Differential (06/13/2024 4:30 PM PROCESS OPERATOR) [facility] Differential Manual Cells Counted 118 [facility] Neutrophil abs 5.1 1.5 - 6.5 K/cumm [facility] Lymphocyte abs 4.4(H) 0.8 - 3.3 K/cumm [facility] Monocyte abs 0.6 0.2 - 0.8 K/cumm [facility] Neutrophil pct 50.9 % [facility] Comment: Interpretive Data Percent cell count reference ranges are not reported, since discordance with absolute values may lead to misinterpretation of CBC data. Current Interpretive Data was last revised on 2017. Lymphocyte pct 28.8 % [facility] Comment: Interpretive Data Percent cell count reference ranges are not reported, since discordance with absolute values may lead to misinterpretation of CBC data. Current Interpretive Data was last revised on 2017. Monocyte pct 5.9 % [facility] Comment: Interpretive Data Percent cell count reference ranges are not reported, since discordance with absolute values may lead to misinterpretation of CBC data. Current Interpretive Data was last revised on 2017. Variant lymph pct 14.4 % [facility] RBC morphology Present(A) [facility] Anisocytosis Slight(A) [facility] Poikilocytosis Slight(A) [facility] Macrocytes 3-7/HPF(A) [facility] Schistocytes 1-2/HPF(A) [facility] Blood 06/13/2024 4:30 PM PROCESS OPERATOR 06/13/2024 5:36 PM PROCESS OPERATOR Sharona Gomez [employer] LAB BLOOD ORDERABLES Mel aby Result Performing Organization Address City/State/[facility] Co de Phone Number [facility] Department [place] [address] * Senior staff review (06/13/2024 4:30 PM PROCESS OPERATOR) Senior Staff Review Specimen Blood Senior Staff Review Review Done [facility] Comment:Reviewed by senior james salcedo. 06/14/2024 07:47:49 PROCESS OPERATOR by MATT Blankenship. Blood 06/13/2024 4:30 PM PROCESS OPERATOR 06/13/2024 5:36 PM PROCESS OPERATOR us Eren Cr MD LAB BLOOD ORDERABLES Final Re sult Performing Organization Address [facility] Co de Phone Number [facility] Department [place] [address] * (ABNORMAL) eGFR (06/13/2024 4:30 PM PROCESS OPERATOR) eGFR 25(L) >=60 mL/min/1. 73 m2 Comment: [...] last reviewed 2021. Blood 06/13/2024 4:30 PM PROCESS OPERATOR 06/13/2024 4:57 PM PROCESS OPERATOR us Sharona Gomez NP LAB BLOOD ORDERABLES Mel l Result Performing Organization Address [facility]/ZIP Co de Phone Number JASON BLACK [facility] Department of [facility] [place], [place] [id number] * Phosphorus (06/13/2024 4:30 PM PROCESS OPERATOR) [facility] Phosphorus, pl 2.7 2.3 - 4.5 mg/dL Blood (Blood, Venous) 06/13/2024 4:30 PM PROCESS OPERATOR 06/13/2024 4:57 PM PROCESS OPERATOR Sharona Gomez [employer] LAB BLOOD ORDERABLES Mel l Result Performing Organization Address City/[facility]/ZIP Co de Phone Number [facility] Department [place] [address] * Magnesium (06/13/2024 4:30 PM PROCESS OPERATOR) [facility] Magnesium 1.9 1.4 - 2.5 mg/dL Blood (Blood, Venous) 06/13/2024 4:30 PM PROCESS OPERATOR 06/13/2024 4:57 PM PROCESS OPERATOR Sharona Gomez [employer] LAB BLOOD ORDERABLES Mel l Result Performing Organization Address [facility] de Phone Number [facility] Department [place] [address] * (ABNORMAL) Comprehensive metabolic panel (06/13/2024 4:30 PM PROCESS OPERATOR) [facility] Sodium 139 135 - 145 mmol/L Potassium, pl 4.4 3.3 - 4.9 mmol/L [facility] Chloride 107 97 - 110 mmol/L [facility] CO2 22 22 - 32 mmol/L [facility] Anion gap 10 2 - 15 mmol/L [facility] BUN 18 6 - 25 mg/dL [facility] Creatinine 2.03(H) 0.60 - 1.10 mg/dL [facility] Glucose 121 70 - 199 mg/dL [facility] Comment: Interpretive Data Fasting glucose >/= 126 [...] 2022. Calcium 9.8 8.5 - 10.3 mg/dL [facility] Bilirubin, total 0.6 0.1 - 1.2 mg/dL [facility] Protein, pl 6.6 6.5 - 8.5 g/dL [facility] Albumin 4.2 3.5 - 5.0 g/dL [facility] Alk phos 85 40 - 130 Units/L [facility] ALT 14 7 - 45 Units/L [facility] AST 32 10 - 45 Units/L [facility] Blood 06/13/2024 4:30 PM PROCESS OPERATOR 06/13/2024 4:57 PM PROCESS OPERATOR Sharona Gomez [employer] LAB BLOOD ORDERABLES Mel badillo Result [facility] Department [place] [address] * (ABNORMAL) CBC with auto differential (06/13/2024 4:30 PM PROCESS OPERATOR) WBC 10.1(H) 3.8 - 9.9 K/cumm Hgb 12.0 11.9 - 15.5 g/dL [facility] Hct 37.4 35.6 - 45.5 % [facility] Plt 142(L) 150 - 400 K/cumm [facility] MPV 9.7 9.1 - 12.3 fL [facility] RBC 3.78(L) 3.90 - 5.20 M/cumm [facility] MCV 98.9(H) 81.3 - 96.4 fL [facility] MCH 31.7 27.1 - 33.3 pg [facility] MCHC 32.1(L) 32.3 - 35.7 g/dL [facility] RDW CV 14.6 11.1 - 14.9 % [facility] RDW SD 53.0(H) 35.7 - 48.1 fL [facility] NRBC abs 0.00 0.00 - 0.01 K/cumm [facility] Blood 06/13/2024 4:30 PM PROCESS OPERATOR 06/13/2024 5:36 PM PROCESS OPERATOR Sharona Gomez NP LAB BLOOD ORDERABLES Edit ed Result - Final [facility] Department [place] [address] documented in this encounter Visit Diagnoses Diagnosis Dehydration- Primary Nausea Nausea alone Hypertension, unspecified type documented in this encounter Administered Medications Inactive Administered Medications - up to 3 most recent administrations Medication Order MAR Action Action Date Dose Rate Site amLODIPine (NORVASC) tablet 5 mg 5 mg, oral, Daily, First dose on 06/13/24 at 1725, Please give 15 minutes after anti-emeticsIndications:Hype rtension, unspecified type Given 06/13/2024 5:23 PM PROCESS OPERATOR 5 mg dexAMETHasone (DECADRON) 4 mg/mL injection 4 mg 4 mg, intravenous, Administer over 2 Minutes, Once, On 06/13/24 at 1725, For 1 doseIndications:Nausea Given 06/13/2024 5:05 PM PROCESS OPERATOR 4 mg famotidine (PEPCID) 20 mg/50 mL in sodium chloride 0.9% (premix) 20 mg 20 mg, intravenous, at 150 mL/hr, Administer over 20 Minutes, Once, On 06/13/24 at 1725, For 1 doseIndications:Nausea New Bag 06/13/2024 5:11 PM PROCESS OPERATOR 20 mg 150 mL/h r ondansetron (ZOFRAN) injection 8 mg 8 mg, intravenous, Administer over 2 Minutes, Once, On 06/13/24 at 1725, For 1 doseIndications:Nausea Given 06/13/2024 5:05 PM PROCESS OPERATOR 8 mg sodium chloride 0.9% bolus 1,000 mL 1,000 mL, intravenous, at 500 mL/hr, Administer over 2 Hours, Once, On 06/13/24 at 1700, For 1 dose, Indications: dehydrationIndications:dehyd ration New Bag 06/13/2024 5:11 PM PROCESS OPERATOR 1,000 mL 500 mL/hr documented in this encounter Additional Health Concerns Infection Onset Date Last Indicated Resolved Time COVID: Suspected 06/13/2024 06/13/2024 06/13/2024 6:39 PM PROCESS OPERATOR documented as of this encounter Care Teams Ore Roaster Relationship Specialty Start Date End Date Julio César Briseno MD PCP - General 10/01/16 Eren Cr MD Referring Physician Medical Oncology 11/25/18 Yohana Bowen MD Radiation Oncologist Radiation Oncology 11/25/18 Alejo Mi MD [id number] [place] [id number] Referring Physician Nephrology 03/07/23 documented as of this encounter
--- OUTSIDE RECORDS SUMMARY | 2024-06-25 22:04 | XMS_ITS | Encounter Summary ---
Author Organization [facility] Healthcare Address [address] [place] [address] Care Team Providers Care Sanitation Truck Driver Name Role Phone Julio César Briseno MD Primary Care Provider + [phone] Eren Cr MD Unavailable Yohana Bowen MD Unavailable Alejo Mi MD Unavailable Reason for Visit * Reason Comments Hypertension * Auth/Cert (Routine) Specialty Diagnoses / Procedures Referred By Evelyne t Referred To Contact Diagnoses History of malignant neuroendocrine tumor ANNE-MARIE (acute kidney injury) (HCC) 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 Procedures NA Referral ID Status Reason Start Date Expiration Date Visits Re quested Visits Authorized [id number] 1 1 Encounter Details Date Type Department Care Team (Late st Contact Info) Description 06/16/2024 2:37 PM CLINICAL SERVICES DIRECTOR - 06/16/2024 3:52 PM CLINICAL SERVICES DIRECTOR Surgery [facility] Operating Room [address] [place] [id number] Mela Dejesus MD [address] [place] [address] CYSTOSCOPY Surgery Details Date/Time Status Location OR Service Patient Class Case Cl ass Case Type Trauma Case? 06/16/2024 2:37 PM Posted [facility] OR POD 1 325 Urology Inpatient Urgent - 12 hours Panel 1 Procedure LRB Anes Op Region Wound Class Comments CYSTOSCOPY N/A General Urethra Class II - Anmol an Contaminated PLACEMENT STENT - URETERAL Right Choice Ureter Class II - Clean Contaminated PYELOGRAM - RETROGRADE Right Choice Perineum Cl ass II - Clean Contaminated Surgeon Surgeon Role Service Panel Xochitl Knowles MD Resident - Assisting Uro logy 1 Mela Dejesus MD Primary Urology 1 documented in this encounter Social History Tobacco [...] on file Legal Sex Female 2:41 PM CLINICAL SERVICES DIRECTOR Gender Identity Not on file Sexual Orientation Straight 02/19/2021 9: 29 AM CDT Occupation Industry Job Start Date Job End Date retired Not on file Not on file Not on file documented as of this encounter Last Filed Vital Signs Vital Sign Reading Time Taken Comments Blood Pressure 157/65 06/16/2024 3:50 PM CLINICAL SERVICES DIRECTOR Pulse 79 06/16/2024 3:50 PM CLINICAL SERVICES DIRECTOR Temperature 37 ??C (98.6 ??F) 06/16/2024 3:50 PM CLINICAL SERVICES DIRECTOR Respiratory Rate 8 06/16/2024 3:50 PM CLINICAL SERVICES DIRECTOR Oxygen Saturation 100% 06/16/2024 3:50 PM CLINICAL SERVICES DIRECTOR Inhaled Oxygen Concentration - - Weight 75 kg (165 lb 5.5 oz) 06/16/2024 2:43 PM CLINICAL SERVICES DIRECTOR Height 160 cm (5' 3 ) 06/13/2024 6:44 PM CLINICAL SERVICES DIRECTOR Body Mass Index 28.34 06/19/2024 7:33 AM CLINICAL SERVICES DIRECTOR documented in this encounter Medications at Time [...] 1 tablet (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) by mouth crop farm helper before breakfast 90 tablet 3 11/28/2023 lidocaine-priloca [...] Age: 73 y.o. female Admission: 06/13/2024 Bed: [id number] LOS: 6 days Subjective Interval History No [...] 40 minutes which was spent performing a lwea-ak-glco encounter and personally completing the provider-level activities documented in the note. This includes time spent prior to the visit and after the visit in direct care of the patient. This time does not include time spent in any separately reportable services. Dana Barajas MD ICAL SERVICES DIRECTOR * Brock Bolanos MD - 06/20/2024 10:34 [...] 1859 06/18/24 1900 - 06/19/24 0659 06/19/24 07 - 06/19/24 18506/19/24 1900 - 06/20/24 0659 06/20/24 07 - 06/20/24 1034 Patient has no LDAs of requested type attached. Assessment and Plan: 73 y.o. female with history of metastatic ileal neuroendocrine tumor status post liver lesion biopsy and right posterior section chemoembolization 06/19. No acute events overnight and feels well this morning. - Ok to discharge from IR standpoint. - F/u biopsy results ICAL SERVICES DIRECTOR * Dana Barajas MD - 06/19/2024 9:00 AM CST Daily Progress Note Division of Hospital Medicine Name: La Chung : 1950 Today's Date: June 19, 2024 Age: 73 y.o. female Admission: 06/13/2024 Bed: [id number] LOS: 5 days Subjective Interval History No [...] described right-sided hydronephrosis has resolved. 2. Normal renalechogenicity. Dictated by: Greyson Anthony M.D. The radiology [...] 40 minutes which was spent performing a vank-vh-nbnp encounter and personally completing the provider-level activities documented in the note. This includes time spent prior to the visit and after the visit in direct care of the patient. This time does not include time spent in any separately reportable services. Dana Barajas MD ICAL SERVICES DIRECTOR * Dana Barajas MD - 06/18/2024 10:39 AM CST Daily Progress Note Division of Hospital Medicine Name: La Chung : 1950 Today's Date: June 18, 2024 Age: 73 y.o. female Admission: 06/13/2024 Bed: [id number] LOS: 4 days Subjective Interval History No [...] the liver, omentum, bone, vaginal cuff - [facility] c/s - On octreotide (monthly) and a [...] 40 minutes which was spent performing a rxnl-kv-khea encounter and personally completing the provider-level activities documented in the note. This includes time spent prior to the visit and after the visit in direct care of the patient. This time does not include time spent in any separately reportable services. Dana Barajas MD ICAL SERVICES DIRECTOR * Dana Barajas MD - 06/17/2024 3:23 PM CST Daily Progress Note Division of Hospital Medicine Name: La Chung : 1950 Today's Date: June 17, 2024 Age: 73 y.o. female Admission: 06/13/2024 Bed: [id number] LOS: 3 days Subjective Interval History Flank [...] 45 minutes which was spent performing a jmog-oh-rnbs encounter and personally completing the provider-level activities documented in the note. This includes time spent prior to the visit and after the visit in direct care of the patient. This time does not include time spent in any separately reportable services. Dana Barajas MD ICAL SERVICES DIRECTOR ICAL SERVICES DIRECTOR ICAL SERVICES DIRECTOR * Dana Barajas MD - 06/16/2024 10:00 [...] the liver, omentum, bone, vaginal cuff - [facility] c/s - On octreotide (monthly) and a [...] 45 minutes which was spent performing a rbho-ls-qdvd encounter and personally completing the provider-level activities documented in the note. This includes time spent prior to the visit and after the visit in direct care of the patient. This time does not include time spent in any separately reportable services. Dana Barajas MD ICAL SERVICES DIRECTOR * Pamela Bejarano, RD - 06/15/2024 4:09 PM CST NUTRITION ASSESSMENT [...] 18 CREATININE mg/dL 1.94* < > 2.03* TND-BFR-BVUHGHZ mL/min/1.73 m2 27* < > 25* CALCIUM [...] Present Emesis Assessment Emesis Color/Appearance: Bilious, Green Wilfredo Scale Score: 20 Skin Integrity: Bruising Vital [...] Type of Weight Used for Estimated Kcals: Iraan Total Protein Estimated Needs (gm): 78.3 Protein Needs Based on g/k.5 Type of Weight Used for Estimated Protein : Iraan Total Fluid Estimated Needs: 1827 Fluid Needs Based on : 1 ml/kcal Type of Weight Used for Estimated Fluid Needs: Iraan Dietary Orders (From admission, onward) Start Ordered 06/15/24 1606 Oral Nutrition Supplements ([facility]) Select Supplement: Ensure PLUS High Protein - Any Flavor; Quantity (# of cans): 1 can All Meals Question Answer Comment ([facility]) Select Supplement: Ensure PLUS High Protein - Any Flavor Quantity (# of cans): 1 can 06/15/24 1605 06/15/24 1224 Adult Diet Regular Diet effective now Question: ([facility]) Diet type Answer: Regular 06/15/24 1223 Allergies: Reviewed. IMPRESSION: Met with patient at bedside. She reported poor PO intake for the past couple of weeks. She thinks she has lost some weight over the past month. Reports UBW of 177#. Current [facility] weight is 173#. No significant weight loss noted per [facility] records. She is interested in trying Ensure to see if she likesit. Labs/Meds: reviewed and noted. AAIM ([facility]) MALNUTRITION ASSESSMENT: Date of completion: 06/15 [...] Pamela Bejarano MS, RD, CNSC, LD Cell ICAL SERVICES DIRECTOR * Miguel Angel Martinez MD - 06/15/2024 7:25 AM CST Daily Progress Note Division of [facility] Medicine Name: La Chung : 1950 Today's Date: June 15, 2024 Age: 73 y.o. female Admission: 06/13/2024 Bed: [id number] LOS: 1 days Subjective Interval History Reports [...] the liver, omentum, bone, vaginal cuff - [facility] c/s - On octreotide (monthly) and a clinical trial - Has upcoming liver TACE on Sat. Asking if it can be done while inpatient. Will check with IR. Code status : Full Code Diet : Adult Diet Regular PT/OT Dispo Rec : / Supplementary Attestation My total encounter time on this service date was 60 minutes which was spent performing a bthm-tc-zkbk encounter and personally completing the provider-level activities documented in the note. This includes time spent prior to the visit and after the visit in direct care of the patient. This time does not include time spent in any separately reportable services. Miguel Angel Martinez MD ICAL SERVICES DIRECTOR * Yanet Howard - 06/14/2024 8:00 PM CST Pt admitted to [facility]. 2 RN skin check completed. Admitting MD notified of pt arrival and elevated BP 176/51. Pt oriented to room and unit. Ostomy bag changed with RN assistance. Fluids verified. ICAL SERVICES DIRECTOR documented in this encounter H&P Notes * [...] Mela Dejesus MD at 06/16/2024 1:57 PM CLINICAL SERVICES DIRECTOR ICAL SERVICES DIRECTOR ICAL SERVICES DIRECTOR Source Note - File, Susana Palumbo NP - 06/15/2024 8:28 AM CLINICAL SERVICES DIRECTOR Images from the original note were not [...] or concerns, please page Urology through the gas welding machine operator. Susana Tate NP 06/15/2024 Cosigned by Pa Teran MD at 06/15/2024 1:48 PM CLINICAL SERVICES DIRECTOR ICAL SERVICES DIRECTOR ICAL SERVICES DIRECTOR * Nasir Lyons MD - 06/14/2024 3:26 [...] bone, and vaginal cuff, T4N0 -- dx'ed 2015. ONCOLOGY HISTORY: - 07/2015 CT A/P - [...] time, she also underwent right colectomy in [facility] OR by Dr. Greyson Reeves. [...] mg, 30 mg, subcutaneous, Daily-2099, Nasir Lyons MD levothyroxine (SYNTHROID) tablet 100 [...] 1 tablet (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) by mouth crop farm helper before breakfast, Disp: 90 tablet, Rfl: 3 0.9 % sodium chloride ([facility] sodium chloride 0.9%) injection, Infuse 10 mL [...] mg capsule, Take 1 tablet by mouth crop farm helper before breakfast (Patient not taking: Reported on [...] Reported on 01/24/2024), Disp: , Rfl: coenzyme R42-bfevpcl E 100-5 mg-unit capsule, Take 1 tablet by mouth crop farm helper before breakfast(Patient not taking: Reported on 12/24/2023), [...] to MRI exam, may repeat dose if [id number] minutes prior to MRI (Patient taking differently: [...] to the liver, omentum, bone, vaginal cuff -[facility] c/s -On octreotide (monthly) and a clinical [...] reviewed the CT report Nasir Lyons MD ICAL SERVICES DIRECTOR documented in this encounter Consult Notes * Laurence Torres, CECILIA - 06/16/2024 10:20 AM CSTAssociated Order(s): IP [...] time, she also underwent right colectomy in [facility] OR by Dr. Greyson Reeves. [...] tumor Active Treatment & Therapy Plans for Ginette Chungshirley [facility] Chemotherapy Treatment: Octreotide 28 Day Cycles [...] this procedure TOTAL KNEE ARTHROPLASTY Left 2015 SOCIAL HISTORY Family History Problem Relation Age [...] 1 tablet (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) by mouth crop farm helper before breakfast 90 tablet 3 06/13/2024 simvastatin (ZOCOR) 20 mg tablet Take 1 tablet (20 mg total) by mouth nightly Past Week 0.9 % sodium chloride ([facility] sodium chloride 0.9%) injection Infuse 10 [...] mg capsule Take 1 tablet by mouth crop farm helper before breakfast (Patient not taking: Reported on 12/24/2023) cholecalciferol (VITAMIN D-3) 1,000 unit Take 1 tablet/capsule (1,000 Units total) by mouth daily (Patient taking differently: Take 1 tablet/capsule (1,000 Units total) by mouth every morning) 90 tablet/capsule 3 clotrimazole-betamethasone (LOTRISONE) cream Apply 1 Application topically daily as needed (rash) (Patient not taking: Reported on 01/24/2024) coenzyme S65-ugljyun E 100-5 mg-unit capsule Take 1 tablet by mouth crop farm helper before breakfast (Patient not taking: Reported on [...] venous catheter once a week Patient to [id number] of Normal Saline via CADD Coreas pump [...] RA Heart: pallor noted Abdomen: ND Extremities: AMIN well, atraumatic Skin: Skin color, texture, turgor [...] or family members viewing this note through [email or web address] programs. This note was written as a [...] Cano MD PhD at 06/16/2024 4:15 PM CLINICAL SERVICES DIRECTOR ICAL SERVICES DIRECTOR ICAL SERVICES DIRECTOR Associated attestation - Julio César Cano MD PhD - 06/16/2024 4:15 PM CLINICAL SERVICES DIRECTOR I have seen and examined the patient [...] or concerns, please page Urology through the gas welding machine operator. Xochitl Knowles MD 06/16/2024 Cosigned by Mela Dejesus MD at 06/16/2024 1:57 PM CLINICAL SERVICES DIRECTOR ICAL SERVICES DIRECTOR ICAL SERVICES DIRECTOR * File, Susana Palumbo NP - 06/15/2024 [...] or concerns, please page Urology through the gas welding machine operator. Susana Tate NP 06/15/2024 Cosigned by Pa Teran MD at 06/15/2024 1:48 PM CLINICAL SERVICES DIRECTOR ICAL SERVICES DIRECTOR ICAL SERVICES DIRECTOR Associated attestation - Pa Teran MD - 06/15/2024 1:48 PM CLINICAL SERVICES DIRECTOR I have seen and examined the patient [...] Fonseca MSN OCN RN Inpatient Nurse Coordinator [id number] Medical Oncology ICAL SERVICES DIRECTOR documented in this encounter ED Notes * Anne-Marie Xiong RN - 06/14/2024 7:41 AM CST Bed: ED4[facility] Expected date: Expected time: Means of arrival: Comments: 2-17 Anne-Marie Xiong RN 06/14/24 0741 ICAL SERVICES DIRECTOR * Kelton Borjas MD - 06/13/2024 10:29 [...] has been anxious regarding procedure upcoming on . Patient has also not been compliant with home blood pressures pressure medication. Patient notes that she has had decreased output in her colostomy bag. Patient otherwise denies any fevers, chills, chest pain, shortness of breath, headache, or any other symptoms at this time. Patient Active Problem List Diagnosis Date Noted ANNE-MARIE (acute kidney injury) ([facility]) and Mild right hydroureteronephrosis 06/14/2024 Vomiting 06/14/2024 HTN (hypertension) 06/14/2024 Anxiety 06/14/2024 High risk medication use 01/31/2024 Hypothyroidism 09/12/2023 Proctitis 04/09/2022 Thrombocytopenia (HCC) 04/09/2022 Dehydration 03/15/2022 Depressive disorder 02/15/2022 Hypomagnesemia 10/16/2021 Hearing loss 08/30/2021 Vertigo 08/30/2021 Muscle weakness 08/16/2021 Nausea 08/11/2021 Hypophosphatemia 06/14/2021 Closed displaced fracture of head of right radius 11/20/2020 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, unspecified ([facility]) 04/14/2020 Right flank pain 01/13/2020 Benign essential hypertension 01/13/2020 Blepharitis 01/13/2020 Cough 01/13/2020 Diarrhea 01/13/2020 Enthesopathy of knee 01/13/2020 Vitamin D deficiency 01/13/2020 Knee pain 01/13/2020 Low back pain 01/13/2020 Mass of ovary 01/13/2020 Osteoarthritis of knee 01/13/2020 Pure hypercholesterolemia 01/13/2020 Shoulder joint pain 01/13/2020 Epithelial hyperplasia 07/22/[address] ([facility]/HCC) (HCC) 05/14/2019 Acute blood loss anemia 04/17/2019 Hypocalcemia 04/14/2019 Stage 3b chronic kidney disease (HCC) 04/14/2019 Large bowel obstruction ([facility]/HCC) (HCC) 04/12/2019 Malignant neoplasm metastatic to bone [...] History Social History Narrative : (Added by TW Conv) Retired : (Added by TW Conv) Occasional alcohol use : (Added by [employer] Conv) Review of Systems Review of Systems All other systems reviewed and are negative. Physical Exam ED Triage Vitals Temp Pulse Resp BP SpO2 06/13/24 1844 06/13/24 1844 06/13/24 1844 06/13/24 18406/13/24 184 36.7 ??C (98.1 ??F) 56 18 (!) 187/56 100 % Temp src Heart Rate Source Patient Position BP Location FiO2 (%) 06/14/24 1805 06/14/24 1805 06/14/24 1805 06/14/24 180 -- Oral Monitor HOB 30 degrees Right arm Height Height Method Weight Weight Method 06/13/24 184 -- 06/13/24 184 -- 1.6 m (5' [...] ED Course as of 06/16/24 0029 Time: 06/141 Comment: Attending Attestation I have seen and [...] her on the floor. By: Sabrina Riggs, DO ANNE-MARIE (acute kidney injury) (HCC) 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 History of malignant neuroendocrine tumor Kelton Borjas MD Resident 06/16/24 0031 Kelton Borjas MD Resident 06/16/24 1537 Cosigned by Stu Huang MD at 06/17/2024 12:49 PM CLINICAL SERVICES DIRECTOR ICAL SERVICES DIRECTOR ICAL SERVICES DIRECTOR * Susana Mon, RN - 06/13/2024 10:27 PM CST Bed: ED2-17 Expected date: 06/13/24 Expected time: 6:30 PM Means of arrival: On Foot Comments: Susana Mon RN 06/13/24 3476 ICAL SERVICES DIRECTOR * Marlen Andino RN - 06/13/2024 6:39 [...] by the clinic, AOx4, denies sick contacts. ICAL SERVICES DIRECTOR documented in this encounter Miscellaneous Notes * Plan of Care - Marcia Haynes RN - 06/20/2024 10:56 AM CST Goals: Clinical Goals for the Shift: VSS, comfort, safety Summary: VSS. Pt resting well. No c/o pain. Per pt, blood in urine has decreased. Pt agreeable to plan for d/c. Care plan ongoing. ICAL SERVICES DIRECTOR * Initial Assessments - Sima Agrawal LCSW [...] Agent? 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 Payor Source: Medicare, Supplemental Race: White/ Ethnicity: Non- Gender Identity: Female Service : None (06/20/24 105) Current Situation: Current Situation Living Arrangements: Spouse/significant other Type of Residence: Private residence Income: [employer]/Pension Education Level : High School Diploma How do you Pay for Medication: Insurance Current Transportation: Own vehicle, Family/friends (06/20/24 1051) Legal History: Legal History Legal Information : No legal issues (06/20/24 105) Support Systems and Spirituality: Support Systems and Spirituality Support System: Spouse, Children Spouse Name/Contact Information: Alejo Chung (spouse, ) Children Name/Contact Information: Caroline Chung (daughter, ) and three other adult children Do you have a Anabaptist Preference or Affiliation?: Yes Preference/Affiliation : Orthodoxy Are there any Anabaptist Practices that are important to maintain while [...] Poor physical health Current Stressors: Chronic illness (06/20/241050) SDOH Transportation Needs: No Transportation Needs (06/20/2024) [...] More than three times a week Attends Anabaptist Services: More than 4 times per year [...] None reported Mental Health: None reported (06/20/24 105) Risk to Self and Others: Risk to [...] have an appointment to meet with a palliative care specialist for completion of POA. Sima Agrawal LCSW Please see [facility] Treatment Team for contact information. ICAL SERVICES DIRECTOR * Plan of Care - Soniya López, IRVING - 06/20/2024 6:48 AM CST Goals: Clinical Goals for the Shift: VSS, comfort, safety Summary: vitals stable, RA, potassium and magnesium replaced. No complaints of pain. ICAL SERVICES DIRECTOR * Plan of Care - Sis Pedraza [...] Goals for the Shift: VSS, comfort, safety ICAL SERVICES DIRECTOR * Post-Procedure Note - Dar Willett MD - 06/19/2024 11:15 AM CLINICAL SERVICES DIRECTOR Radiology Brief Post Procedure Note Attending: Kt Helpdesk Technician: Tamie Sedation/Anesthesia: Min Sedation Pre-Op/Pre-Procedure Diagnosis: metastatic neuroendocrine cancer Post-Op/Post-Procedure Diagnosis: same Procedure Performed: TACE posterior division of RHA Procedure Findings: same Complications: None Estimated Blood Loss: < 30 ml Specimens: None Condition: Stable Full report to follow. ICAL SERVICES DIRECTOR * Plan of Care - Maureen Marrufo LCSW - 06/19/2024 11:08 AM CST SW consult received for high-risk readmission (24%). Patient currently off the floor at ; therefore, SW unable to assess. SW to attempt to meet with pt to complete assessments prior to discharge. Maureen Marrufo LCSW ICAL SERVICES DIRECTOR * Post-Procedure Note - Dar Willett MD - 06/19/2024 8:52 AM CLINICAL SERVICES DIRECTOR Radiology Brief Post Procedure Note Attending: Kt Helpdesk Technician: Tamie Sedation/Anesthesia: Min Sedation Pre-Op/Pre-Procedure Diagnosis: neuroendocrine tumor Post-Op/Post-Procedure Diagnosis: same Procedure Performed: CT guided liver biopsy Procedure Findings: successful Complications: None Estimated Blood Loss: < 30 ml Specimens: 4 2.3 cm specimens sent to lab Condition: Stable Full report to follow. ICAL SERVICES DIRECTOR * Plan of Care - Nati Rousseau RN - 06/19/2024 6:13 AM CST Goals: Clinical Goals for the Shift: VSS, comfort, safety Summary: Pt stable, NPO since midnight, no complaints. ICAL SERVICES DIRECTOR * Plan of Care - Sis Pedraza RN - 06/18/2024 8:59 PM CST VSS. Kidney ultrasound completed. Patient denies pain. NPO @ midnight d/t TACE procedure. Plan of care ongoing. Problem: Discharge Planning Goal: Understanding discharge needs will improve Outcome: Ongoing Problem: Skin/Tissue Integrity Goal: Skin integrity remains intact Outcome: Ongoing Goals: Clinical Goals for the Shift: VSS, comfort, safety ICAL SERVICES DIRECTOR * Consults, Subsequent - Xochitl Knowles MD - 06/18/2024 5:56 PM CLINICAL SERVICES DIRECTOR Images from the original note were not [...] hemorrhoids History of hemorrhoids - (Added by SONIYA Conv) History of neuroendocrine cancer 07/2015 Well [...] or concerns, please page Urology through the gas welding machine operator. Xochitl Knowles MD 06/18/2024 Cosigned by Mikey Barnes MD at 06/18/2024 6:09 PM CLINICAL SERVICES DIRECTOR ICAL SERVICES DIRECTOR ICAL SERVICES DIRECTOR * Pre-Procedure Note - Dar Willett MD - 06/18/2024 2:31 PM CLINICAL SERVICES DIRECTOR PRE-SEDATION ASSESSMENT/H&P Patient is a 73 y.o. [...] Angel Martinez MD, 50 Units at 06/18/24 013 HYDROcodone-acetaminophen (NORCO) 5-325 mg per tablet 1 tablet, 1 tablet, oral, Q4H PRN, Nasir Lyons MD hydrOXYzine (ATARAX) tablet 25 mg, 25 mg, oral, Nightly PRN, Bobby Degroot MD, 25 mgat 06/14/24 211 levothyroxine (SYNTHROID) tablet 100 mcg, 100 mcg, [...] D-3) 1,000 unit clotrimazole-betamethasone (LOTRISONE) cream coenzyme M54-wzidflu E 100-5 mg-unit capsule denosumab (Xgeva) 120 [...] LABS Pertinent Labs: Recent Labs Lab Units 06/18/24 01306/17/24 0125 06/16/24 0050 WBC K/cumm 9.0 11.3* 11.2* HEMOGLOBIN g/dL 10.2* 11.4* 11.0* HEMATOCRIT % 32.0* 35.1* 35.0* PLATELETS K/cumm 155 156 149* Recent Labs Lab Units 06/18/24 0137 06/17/24 0125 06/16/24 0050 SODIUM mmol/L 141 142 [...] PO status: Last PO: NPO since midnight ICAL SERVICES DIRECTOR * Plan of Care - Nohelia Moore RN - 06/18/2024 4:34 AM CST Goals: Clinical Goals for the Shift: VSS; Safety; Comfort Summary: VSS. PRN tylenol administered x1 for discomfort. Labs drawn and sent - K 3.2, replaced perPO. Patient still having hematuria. Patient resting in bed. Safety maintained. Care plan ongoing. ICAL SERVICES DIRECTOR * Plan of Care - Sis Pedraza RN - 06/17/2024 7:36 PM CST VSS. Patient denies pain. TTE completed. Plan of care ongoing. Goals: Clinical Goals for the Shift: VSS; Safety; Comfort Problem: Discharge Planning Goal: Understanding discharge needs will improve Outcome: Progressing Problem: Respiratory Goal: Achieves optimal ventilation and oxygenation Outcome: Progressing ICAL SERVICES DIRECTOR * Assessment & Plan Note - Dana Barajas MD - 06/17/2024 3:30 PM CLINICAL SERVICES DIRECTOR Associated Problem(s): Exertional dyspnea Reports noting increased exertional dyspnea over last year or so. Nt-probnp elevated on admission - TTE with grade 1 diastolic dysfunction, thickened LV but otherwise normal systolic function EF 66% and normal valvular function ICAL SERVICES DIRECTOR ICAL SERVICES DIRECTOR ICAL SERVICES DIRECTOR * Plan of Care - Callie Gama [...] Patient and/or family are agreeable with plan. global logistics manager will continue to follow and assist with discharge planning as needed. If any further discharge needs arise, please contact the covering director case management. ICAL SERVICES DIRECTOR * Consults, Subsequent - File, Susana Palumbo NP - 06/17/2024 9:00 AM CLINICAL SERVICES DIRECTOR Images from the original note were not [...] or concerns, please page Urology through the gas welding machine operator. Susana Tate NP 06/17/2024 ICAL SERVICES DIRECTOR * Plan of Care - Nohelia Moore RN - 06/17/2024 5:56 AM CST Goals: Clinical Goals for the Shift: VSS, rest, comfort, safety Summary: VSS. No complaints of pain. Labs drawn and sent - no replacements needed. Good urine output throughout night. Patient resting comfortably in bed. Safety maintained. Care plan ongoing. ICAL SERVICES DIRECTOR * Plan of Care - Angeli Spivey RN - 06/16/2024 7:14 PM CST Goals: Clinical Goals for the Shift: VSS, rest, comfort, safety Summary: VSS pt A&Ox4 on RA. Pt made NPO in morning for Urology procedure. Pt in OR for most of afternoon. Pt returned to floor at 1845, post OP vitals initiated. Pt resting in bed with safety measures inplace. ICAL SERVICES DIRECTOR * Op Note - Mela Dejesus MD - 06/16/2024 2:37 PM CST Operative Report SURGEON: Mela Dejseus MD SURGICAL TEAM: Anode Machine Operator: Amara Hernandez RN Scrub: Alessandra Petersen RN [...] bladder or urethra. We advanced a 5 iraqi ureteral access catheter into the right ureteral orifice just to the level of the distal ureter. A retrograde pyelogram was performed which revealed a proximal ureteral obstruction with pyelovenous backflow and hydronephrosis proximal to the obstruction. Through the catheter we advanced a sensor wire to the level of the kidney under fluoroscopic guidance. Over the wire, we advanced a 6 iraqi x 26 cm ureteral stent. Removal of [...] - ultrasound in 2 days with [facility] ICAL SERVICES DIRECTOR ICAL SERVICES DIRECTOR * Plan of Care - Nohelia Moore [...] in bed. Safety maintained. Care plan ongoing. ICAL SERVICES DIRECTOR * Plan of Care - Angeli Spivey RN - 06/15/2024 6:41 PM CST Goals: Clinical Goals for the Shift: VSS, comfort, safety, rest, N&V control Summary: VSS, pt A&Ox4 on RA. Tylenol given once for pain per order. During morning meds, R chest port would not draw back blood after flushing, notified. Heparin flush instilled per order, which was unsuccessful in giving blood return, MD notified. Alteplase instilled in line per order, when alteplase was drawn back out of port, blood return was noted. Pt was started on NS 100 mL/hr per order. Pt started on regular diet, tolerating well. No complaints of N&V. Pt resting in bed with safety measures in place. ICAL SERVICES DIRECTOR * Hospital Course - Miguel Angel Martinez [...] be from mild obstruction vs could have laevrn stone which has passed. CT abdomen shows [...] the liver, omentum, bone, vaginal cuff - [facility] c/s - On octreotide (monthly) and a clinical trial - Has upcoming liver TACE on Sat ICAL SERVICES DIRECTOR * Initial Assessments - Callie Gama RN - 06/15/2024 3:18 PM CLINICAL SERVICES DIRECTOR CM Initial Assessment Interview Note Information Obtained From: Patient (06/15/241507) Admission Source: ED from home Impression: 73 y/o female with PMH of HTN, hypothyroidism, neuroendocrine tumor with liver mets admitted with N/V and mild right hydronephrosis. Plan Includes: Anticipate patient will discharge to home when medically stable. CM to follow for d/c planning and referrals as needed. Primary Source of Transportation: Does the patient need discharge transport arranged?: No (06/15/24 150) Health Insurance Coverage: Medicare A/B, AARP Supplement Prescription Coverage: Yes Pharmacy: [id number] - [place], [place] - [address] [facility] [id number] [facility] - [place], [place] - [address] [facility] [address] [facility] [address] Primary Care Provider: Julio César Briseno MD [...] agrees with Anticipated Level of Care: Yes (06/15/241507) Patient expects to be Discharged to: Private [...] Collaboration with Patient, Provider, Direct Care Nurse, Bait Packer, and other members of theHealth Care Team to assure needed interventions completed. 2. Return patient to optimal level of self-care post discharge. 3. Account Service Representative will follow for Discharge Planning - interventions as needed 4. Anticipated level of care at discharge 5. Planned Discharge Disposition Callie Gama RN ICAL SERVICES DIRECTOR * Plan of Care - Nati Rousseau RN - 06/15/2024 6:34 AM CST Goals: Clinical Goals for the Shift: VSS, comfort, safety Summary: Pt's VSS. Vomitted a few times at beginning of shift, zofran x1. Still vomitting, made aware, EKG done compazine added given x1. Pt also having anxiety requesting ativan, made aware, atarax ordered and given x1. NPO since midnight. ICAL SERVICES DIRECTOR * Assessment & Plan Note - Nasir Lyons MD - 06/14/2024 3:48 PM CLINICAL SERVICES DIRECTOR Associated Problem(s): Anxiety She reports taking duloxetine 30 daily for over a year. Will continue that ICAL SERVICES DIRECTOR * Assessment & Plan Note - Nasir Lyons MD - 06/14/2024 3:47 PM CLINICAL SERVICES DIRECTOR Associated Problem(s): Hypothyroidism Home synthroid ICAL SERVICES DIRECTOR * Assessment & Plan Note - Dana Barajas MD - 06/14/2024 3:47 PM CLINICAL SERVICES DIRECTOR Associated Problem(s): HTN (hypertension) Home amlodipine. Losartan held throughout admission due to ANNE-MARIE and blood pressure reasonably controlled on amlodipine. 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 UA not c/f infection. Might be from mild obstruction vs could have lavern stone which has passed. CT abdomen shows new mild hydroureteronephrosis possible secondary to partial obstruction from retroperitoneal adenopathy -Pain control w/ tylenol, lido patch, ok for low dose opioids. -Management as per above -pain improved with stent placement ICAL SERVICES DIRECTOR ICAL SERVICES DIRECTOR ICAL SERVICES DIRECTOR * Assessment & Plan Note - Dana Barajas MD - 06/14/2024 3:45 PM CLINICAL SERVICES DIRECTOR Associated Problem(s): ANNE-MARIE (acute kidney injury) (HCC) [...] hematuria post stent which has now resolved ICAL SERVICES DIRECTOR ICAL SERVICES DIRECTOR ICAL SERVICES DIRECTOR ICAL SERVICES DIRECTOR ICAL SERVICES DIRECTOR ICAL SERVICES DIRECTOR ICAL SERVICES DIRECTOR * Assessment & Plan Note - Dana Barajas MD - 06/14/2024 3:42 PM CLINICAL SERVICES DIRECTOR Associated Problem(s): Vomiting Likely related to ANNE-MARIE and R ureteral process. -Improved and tolerating oral intake -PPI IV BID->oral BID for now. -Nausea control. Pain control. ICAL SERVICES DIRECTOR ICAL SERVICES DIRECTOR ICAL SERVICES DIRECTOR ICAL SERVICES DIRECTOR * ED Re-evaluation Note - Sabrina Riggs DO - 06/14/2024 6:48 AM CLINICAL SERVICES DIRECTOR ED Re-evaluation TRANSITION OF CARE: ISabrina DO, am taking signout from off-going resident. [...] Course as of 06/14/24 1411 Time: 06/14 31 Comment: Attending Attestation I have seen and [...] patient. By: Stu Huang MD Time: 06/14 3506 Comment: CT read shows increased cancer burden [...] DO Prabakar, Ashley Christen, DO Resident 06/14/24 07 ICAL SERVICES DIRECTOR * ED Pre-Arrival Note - Mary Alva, IRVING - 06/13/2024 6:30 PM CLINICAL SERVICES DIRECTOR Pre-Arrival Note Pt coming from cancer care clinic d/t hypertension. Pt presented with nausea and vomiting. Hypertensive to 220's. Coming to ED for further eval. Mary Alva, RN ICAL SERVICES DIRECTOR documented in this encounter Plan of Treatment Pending Results Name Type Priority Associated Diagnoses Date /Time Pro B-type natriuretic peptide Lab STAT 06/14/2024 12:23 AM CLINICAL SERVICES DIRECTOR Scheduled Orders Name Type Priority Associated Diagnoses Orde r Schedule Pro B-type natriuretic peptide Lab STAT Once for 1 Occur rences starting 06/14/2024 until 06/14/2024 documented as of this encounter Procedures Procedure Name Priority Date/Time Associated Diagnosis Comments EGFR Routine 06/20/2024 12:59 AM CLINICAL SERVICES DIRECTOR DIFFERENTIAL AUTO Routine 06/20/2024 12:59 AM CLINICAL SERVICES DIRECTOR CBC WITH AUTO DIFFERENTIAL Routine 06/20/2024 12:59 AM CLINICAL SERVICES DIRECTOR MAGNESIUM Routine 06/20/2024 12:59 AM CLINICAL SERVICES DIRECTOR HEPATIC FUNCTION PANEL Routine 06/20/2024 12:59 AM CLINICAL SERVICES DIRECTOR BASIC METABOLIC PANEL Routine 06/20/2024 12:59 AM CLINICAL SERVICES DIRECTOR EMBOLIZATION ORGAN ISCHEMIA OR INFARCTION Schedule Routine, Read Routine (OP Routine) 06/19/2024 11:17 AM CLINICAL SERVICES DIRECTOR 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) BIOPSY LIVER Schedule Routine, Read Routine (OP Routine) 06/19/2024 9:00 AM CLINICAL SERVICES DIRECTOR 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) SURGICAL PATHOLOGY Routine 06/19/2024 8: 53 AM CLINICAL SERVICES DIRECTOR ANNE-MARIE (acute kidney injury) (HCC) 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 History of malignant neuroendocrine tumor 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) EGFR Routine 06/19/2024 1:56 AM CLINICAL SERVICES DIRECTOR DIFFERENTIAL AUTO Routine 06/19/2024 1:5 6 AM CLINICAL SERVICES DIRECTOR CBC WITH AUTO DIFFERENTIAL Routine 06/19/2024 1:56 AM CLINICAL SERVICES DIRECTOR MAGNESIUM Routine 06/19/2024 1:56 AM CLINICAL SERVICES DIRECTOR HEPATIC FUNCTION PANEL Routine 06/19/2024 1:56 AM CLINICAL SERVICES DIRECTOR BASIC METABOLIC PANEL Routine 06/19/2024 1:56 AM CLINICAL SERVICES DIRECTOR US KIDNEY COMPLETE IP Routine 06/18/2024 3: 53 PM CLINICAL SERVICES DIRECTOR XR ABDOMEN AP 1 VIEW IP Routine 06/18/2024 5:54 AM CLINICAL SERVICES DIRECTOR EGFR Routine 06/18/2024 1:37 AM CLINICAL SERVICES DIRECTOR CBC WITH AUTO DIFFERENTIAL Routine 06/18/2024 1:37 AM CLINICAL SERVICES DIRECTOR MANUAL DIFFERENTIAL Routine 06/18/2024 1 :37 AM CLINICAL SERVICES DIRECTOR MAGNESIUM Routine 06/18/2024 1:37 AM CLINICAL SERVICES DIRECTOR HEPATIC FUNCTION PANEL Routine 06/18/2024 1:37 AM CLINICAL SERVICES DIRECTOR BASIC METABOLIC PANEL Routine 06/18/2024 1:37 AM CLINICAL SERVICES DIRECTOR TRANSTHORACIC ECHO (TTE) COMPLETE W DOPPLER/CF W CONTRAST Routine 06/17/2024 4:25 PM CLINICAL SERVICES DIRECTOR EGFR Routine 06/17/2024 1:25 AM CLINICAL SERVICES DIRECTOR CBC WITH AUTO DIFFERENTIAL Routine 06/17/2024 1:25 AM CLINICAL SERVICES DIRECTOR MANUAL DIFFERENTIAL Routine 06/17/2024 1 :25 AM CLINICAL SERVICES DIRECTOR MAGNESIUM Routine 06/17/2024 1:25 AM CLINICAL SERVICES DIRECTOR HEPATIC FUNCTION PANEL Routine 06/17/2024 1:25 AM CLINICAL SERVICES DIRECTOR BASIC METABOLIC PANEL Routine 06/17/2024 1:25 AM CLINICAL SERVICES DIRECTOR FL FLUOROSCOPY < 1 HOUR IP Routine 06/16/2024 3:37 PM CLINICAL SERVICES DIRECTOR PYELOGRAM - RETROGRADE 06/16/2024 3:03 PM CLINICAL SERVICES DIRECTOR ANNE-MARIE (acute kidney injury) (HCC) 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 PLACEMENT STENT - URETERAL 06/16/2024 3:03 PM CLINICAL SERVICES DIRECTOR ANNE-MARIE (acute kidney injury) (HCC) 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 CYSTOSCOPY 06/16/2024 3:03 PM CLINICAL SERVICES DIRECTOR ANNE-MARIE (acute kidney injury) (HCC) 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 EGFR Routine 06/16/2024 12:50 AM CLINICAL SERVICES DIRECTOR CBC WITH AUTO DIFFERENTIAL Routine 06/16/2024 12:50 AM CLINICAL SERVICES DIRECTOR MANUAL DIFFERENTIAL Routine 06/16/2024 12:50 AM CLINICAL SERVICES DIRECTOR MAGNESIUM Routine 06/16/2024 12:50 AM CLINICAL SERVICES DIRECTOR HEPATIC FUNCTION PANEL Routine 06/16/2024 12:50 AM CLINICAL SERVICES DIRECTOR BASIC METABOLIC PANEL Routine 06/16/2024 12:50 AM CLINICAL SERVICES DIRECTOR EGFR Routine 06/15/2024 1:26 AM CLINICAL SERVICES DIRECTOR CBC WITH AUTO DIFFERENTIAL Routine 06/15/2024 1:26 AM CLINICAL SERVICES DIRECTOR MANUAL DIFFERENTIAL Routine 06/15/2024 1 :26 AM CLINICAL SERVICES DIRECTOR MAGNESIUM Routine 06/15/2024 1:26 AM CLINICAL SERVICES DIRECTOR HEPATIC FUNCTION PANEL Routine 06/15/2024 1:26 AM CLINICAL SERVICES DIRECTOR BASIC METABOLIC PANEL Routine 06/15/2024 1:26 AM CLINICAL SERVICES DIRECTOR ECG 12-LEAD Routine 06/14/2024 8:[address] ABDOMEN PELVIS W CONTRAST ED 06/14/2024 2:26 AM CLINICAL SERVICES DIRECTOR EGFR STAT 06/14/2024 12:23 AM CLINICAL SERVICES DIRECTOR DIFFERENTIAL AUTO STAT 06/14/2024 12:23 AM CLINICAL SERVICES DIRECTOR PRO B-TYPE NATRIURETIC PEPTIDE STAT 06/14/2024 12:23 AM CLINICAL SERVICES DIRECTOR CBC WITH AUTO DIFFERENTIAL STAT 06/14/2024 12:23 AM CLINICAL SERVICES DIRECTOR COMPREHENSIVE METABOLIC PANEL STAT 06/14/2024 12:23 AM CLINICAL SERVICES DIRECTOR documented in this encounter Results * (ABNORMAL) eGFR (06/20/2024 12:59 AM CLINICAL SERVICES DIRECTOR) [facility] eGFR 38(L) >=60 mL/min/1. 73 m2 [...] reviewed 2021. Blood 06/20/2024 12:5 9 AM CLINICAL SERVICES DIRECTOR 06/20/2024 1:19 AM CLINICAL SERVICES DIRECTOR us Nasir Lyons MD LAB BLOOD ORDERABLES Mel badillo Result [facility] Department [place] [address] * (ABNORMAL) Differential, auto (06/20/2024 12:59 AM CLINICAL SERVICES DIRECTOR) Neutrophil abs 5.8 1.5 - 6.5 K/cumm Imm gran abs 0.1 0.0 - 0.1 K/cumm [facility] Lymphocyte abs 2.3 0.8 - 3.3 K/cumm [facility] Monocyte abs 2.7(H) 0.2 - 0.8 K/cumm [facility] Eosinophil abs 0.0 0.0 - 0.5 K/cumm [facility] Basophil abs 0.0 0.0 - 0.1 K/cumm [facility] Neutrophil pct 52.9 % [facility] Comment: Consistent with previous result Interpretive Data Percent cell count reference ranges are not reported, since discordance with absolute values may lead to misinterpretation of CBC data. Current Interpretive Data was last revised on 2017. Imm gran pct 0.5 % [facility] Comment: Interpretive Data Percent cell count reference ranges are not reported, since discordance with absolute values may lead to misinterpretation of CBC data. Current Interpretive Data was last revised on 2017. Lymphocyte pct 21.0 % [facility] Comment: Interpretive Data Percent cell count reference ranges are not reported, since discordance with absolute values may lead to misinterpretation of CBC data. Current Interpretive Data was last revised on 2017. Monocyte pct 24.9 % [facility] Comment: Interpretive Data Percent cell count reference ranges are not reported, since discordance with absolute values may lead to misinterpretation of CBC data. Current Interpretive Data was last revised on 2017. Eosinophil pct 0.3 % [facility] Comment: Interpretive Data Percent cell count reference ranges are not reported, since discordance with absolute values may lead to misinterpretation of CBC data. Current Interpretive Data was last revised on 2017. Basophil pct 0.4 % [facility] Comment: Interpretive Data Percent cell count reference ranges are not reported, since discordance with absolute values may lead to misinterpretation of CBC data. Current Interpretive Data was last revised on 2017. Blood 06/20/2024 12:5 9 AM CLINICAL SERVICES DIRECTOR 06/20/2024 1:20 AM CLINICAL SERVICES DIRECTOR Nasir Lyons MD LAB BLOOD ORDERABLES Mel l Result [facility] Department [place] [address] * Magnesium (06/20/2024 12:59 AM CLINICAL SERVICES DIRECTOR) Magnesium 1.4 1.4 - 2.5 mg/dL Blood 06/20/2024 12:5 9 AM CLINICAL SERVICES DIRECTOR 06/20/2024 1:19 AM CLINICAL SERVICES DIRECTOR Nasir Lyons MD LAB BLOOD ORDERABLES Mel l Result Performing Organization Address [facility] Co de Phone Number [facility] [place] [address] * (ABNORMAL) Hepatic function panel (06/20/2024 12:59 AM CLINICAL SERVICES DIRECTOR) [facility] Bilirubin, total 0.6 0.1 - 1.2 mg/dL Bilirubin, direct <0.2 0.1 - 0.3 mg/dL [facility] Protein, pl 6.2(L) 6.5 - 8.5 g/dL [facility] Albumin 3.8 3.5 - 5.0 g/dL [facility] Alk phos 85 40 - 130 Units/L [facility] ALT 164(H) 7 - 45 Units/L [facility] Comment:Reviewed AST 433(H) 10 - 45 Units/L [facility] Comment:Reviewed Blood 06/20/2024 12:5 9 AM CLINICAL SERVICES DIRECTOR 06/20/2024 1:19 AM CLINICAL SERVICES DIRECTOR Nasir Lyons MD LAB BLOOD ORDERABLES Mel l Result Performing Organization Address [facility] de Phone Number [facility] Department [place] [address] * (ABNORMAL) CBC with auto differential (06/20/2024 12:59 AM CLINICAL SERVICES DIRECTOR) [facility] WBC 11.0(H) 3.8 - 9.9 K/cumm Hgb 10.8(L) 11.9 - 15.5 g/dL [facility] Hct 33.7(L) 35.6 - 45.5 % [facility] Plt 133(L) 150 - 400 K/cumm [facility] MPV 10.2 9.1 - 12.3 fL [facility] RBC 3.45(L) 3.90 - 5.20 M/cumm [facility] MCV 97.7(H) 81.3 - 96.4 fL [facility] MCH 31.3 27.1 - 33.3 pg [facility] MCHC 32.0(L) 32.3 - 35.7 g/dL [facility] RDW CV 14.6 11.1 - 14.9 % [facility] RDW SD 52.6(H) 35.7 - 48.1 fL [facility] NRBC abs 0.00 0.00 - 0.01 K/cumm [facility] Blood 06/20/2024 12:5 9 AM CLINICAL SERVICES DIRECTOR 06/20/2024 1:20 AM CLINICAL SERVICES DIRECTOR us Nasir Lyons MD LAB BLOOD ORDERABLES Mel l Result [facility] Department [place] [address] * (ABNORMAL) Basic metabolic panel (06/20/2024 12:59 AM CLINICAL SERVICES DIRECTOR) [facility] Sodium 138 135 - 145 mmol/L Potassium, pl 3.5 3.3 - 4.9 mmol/L [facility] Chloride 105 97 - 110 mmol/L [facility] CO2 25 22 - 32 mmol/L [facility] Anion gap 8 2 - 15 mmol/L [facility] BUN 12 6 - 25 mg/dL [facility] Creatinine 1.44(H) 0.60 - 1.10 mg/dL [facility] Glucose 123 70 - 199 mg/dL [facility] [...] 2022. Calcium 8.1(L) 8.5 - 10.3 mg/dL [facility] Blood 06/20/2024 12:5 9 AM CLINICAL SERVICES DIRECTOR 06/20/2024 1:19 AM CLINICAL SERVICES DIRECTOR us Nasir Lyons MD LAB BLOOD ORDERABLES Mel aby Result [facility] Department [place] [address] * IR Embolization Tumor Organ Ischemia or Infarction (06/19/2024 11:17 AM CLINICAL SERVICES DIRECTOR) Anatomical Region Laterality Modality Body N/A X-Ray Angiograph y 06/19/2024 4:13 PM CLINICAL SERVICES DIRECTOR Impressions 06/19/2024 4:15 PM CLINICAL SERVICES DIRECTOR Successful diagnostic angiography and chemo-embolization of the right posterior liver using 25 mg doxorubicin and Ethiodol and Gelfoam. PLAN: Interventional radiology will coordinate outpatient follow-up. Dictated by: Dar Willett M.D. The radiology attending physician has personally reviewed this study, and had reviewed and/or edited this written report and agrees with it. Electronically signed by: Mikey Meraz M.D. Narrative 06/19/2024 4:15 PM CLINICAL SERVICES DIRECTOR EXAMINATION: ??DIAGNOSTIC VISCERAL ANGIOGRAPHY AND TRANSARTERIAL CHEMOEMBOLIZATION [...] was obtained. Prior to beginning the procedure, Bristol Protocol was performed to confirm the patient's [...] the patent vessel was recorded. A 6 [place] sheath was placed and connected to a heparinized saline drip. Using fluoroscopic guidance, the following arteries were catheterized and selective diagnostic angiograms were performed: Common hepatic artery with Nancy CT Posterior division of the right hepatic artery (3rd order) The equipment used for catheterization was 5 [place] LEV catheter and a Glidewire. ??The equipment used for selective catheterization was 2.7-[place] Progreat catheter and a fathom wire. The [...] was obtained. Prior to beginning the procedure, Bristol Protocol was performed to confirm the patient's [...] the patent vessel was recorded. A 6 [place] sheath was placed and connected to a heparinized saline drip. Using fluoroscopic guidance, the following arteries were catheterized and selective diagnostic angiograms were performed: Common hepatic artery with Nancy CT Posterior division of the right hepatic artery (3rd order) The equipment used for catheterization was 5 [place] LEV catheter and a Glidewire. The equipment used for selective catheterization was 2.7-[place] Progreat catheter and a fathom wire. The [...] * IR Biopsy Liver (06/19/2024 9:00 AM CLINICAL SERVICES DIRECTOR) Anatomical Region Laterality Modality Body N/A Computed Tomogra phy 06/19/2024 4:01 PM CLINICAL SERVICES DIRECTOR Impressions 06/19/2024 4:10 PM CLINICAL SERVICES DIRECTOR Successful image-guided core biopsy of a segment IVb hepatic lesion. PLAN: Patient will proceed to the interventional radiology area for chemoembolization. Dictated by: Dar Willett M.D. The radiology attending physician has personally reviewed this study, and had reviewed and/or edited this written report and agrees with it. Electronically signed by: Mikey Meraz M.D. Narrative 06/19/2024 4:10 PM CLINICAL SERVICES DIRECTOR EXAMINATION: IMAGE-GUIDED BIOPSY OF LIVER HISTORY/INDICATION: 73-year-old [...] was obtained. Prior to beginning the procedure, Bristol Protocol was performed to confirm the patient's [...] was obtained. Prior to beginning the procedure, [place] Protocol was performed to confirm the patient's [...] by: Mikey Meraz M.D. Mikey Meraz MD [facility] IR PROCEDURES Mel l Result * Surgical pathology (06/19/2024 8:53 AM CLINICAL SERVICES DIRECTOR) Tissue (Soft tissue biopsy) 06/19/2024 8:53 AM CLINICAL SERVICES DIRECTOR Narrative PATHOLOGY [facility] - 06/23/2024 3:41 PM CLINICAL SERVICES DIRECTOR EPIC results best viewed via link to PDF [facility], [place] [address] Note to Patients: This report may contain [...] Gender: ??F : ??1950 (Age: 73) Address: ??[facility] [address], [place], [place] ??[address] Hospital #: ??[id number] Taken:06/19/2024 Received:06/19/2024 Reported: 06/23/2024 Patient Type: [facility] Inpatient ?? Service: Oncology Location: [facility] ??[address] Physician(s): ??MD Julio César Serrato M.D. Diagnosis: [...] Surgical Pathology and Flow Cytometry Departments at [facility] as part of an ongoing quality assurance supervisor final program and in compliance with federally mandated [...] Surgical Pathology and Flow Cytometry Departments of [facility]. ??It has not been cleared or approved by the U. S. Food and Drug Administration. IMAGES AND SCANNED DOCUMENTS, IF INCLUDED, ONLY VIEWABLE IN PDF VERSION OF REPORT Dana Barajas MD LAB PATHOLOGY ORDERABLES Fin al Result PATHOLOGY [facility] 3rd Floor [place], [place] [phone] * (ABNORMAL) eGFR (06/19/2024 1:56 AM CLINICAL SERVICES DIRECTOR) eGFR 37(L) >=60 mL/min/1. 73 m2 Comment: [...] last reviewed 2021. Blood 06/19/2024 1:56 AM CLINICAL SERVICES DIRECTOR 06/19/2024 2:31 AM CLINICAL SERVICES DIRECTOR us Nasir Lyons MD LAB BLOOD ORDERABLES Mel badillo Result [facility] Department [place] [address] * (ABNORMAL) Differential, auto (06/19/2024 1:56 AM CLINICAL SERVICES DIRECTOR) Neutrophil abs 2.1 1.5 - 6.5 K/cumm Imm gran abs 0.0 0.0 - 0.1 K/cumm [facility] Lymphocyte abs 2.7 0.8 - 3.3 K/cumm [facility] Monocyte abs 4.0(H) 0.2 - 0.8 K/cumm [facility] Eosinophil abs 0.1 0.0 - 0.5 K/cumm [facility] Basophil abs 0.0 0.0 - 0.1 K/cumm [facility] Neutrophil pct 23.5 % [facility] Comment: Confirmed by smear review Interpretive Data Percent cell count reference ranges are not reported, since discordance with absolute values may lead to misinterpretation of CBC data. Current Interpretive Data was last revised on 2017. Imm gran pct 0.3 % [facility] Comment: Interpretive Data Percent cell count reference ranges are not reported, since discordance with absolute values may lead to misinterpretation of CBC data. Current Interpretive Data was last revised on 2017. Lymphocyte pct 30.2 % [facility] Comment: Interpretive Data Percent cell count reference ranges are not reported, since discordance with absolute values may lead to misinterpretation of CBC data. Current Interpretive Data was last revised on 2017. Monocyte pct 44.4 % [facility] Comment: Interpretive Data Percent cell count reference ranges are not reported, since discordance with absolute values may lead to misinterpretation of CBC data. Current Interpretive Data was last revised on 2017. Eosinophil pct 1.3 % [facility] Comment: Interpretive Data Percent cell count reference ranges are not reported, since discordance with absolute values may lead to misinterpretation of CBC data. Current Interpretive Data was last revised on 2017. Basophil pct 0.3 % [facility] Comment: Interpretive Data Percent cell count reference ranges are not reported, since discordance with absolute values may lead to misinterpretation of CBC data. Current Interpretive Data was last revised on 2017. Blood 06/19/2024 1:56 AM CLINICAL SERVICES DIRECTOR 06/19/2024 2:32 AM CLINICAL SERVICES DIRECTOR Nasir Lyons MD LAB BLOOD ORDERABLES Mel badillo Result [facility] Department [place] [address] * Magnesium (06/19/2024 1:56 AM CLINICAL SERVICES DIRECTOR) Magnesium 1.6 1.4 - 2.5 mg/dL Blood 06/19/2024 1:56 AM CLINICAL SERVICES DIRECTOR 06/19/2024 2:31 AM CLINICAL SERVICES DIRECTOR Nasir Lyons MD LAB BLOOD ORDERABLES Mel l Result Performing Organization Address [facility] Co de Phone Number [facility] [place] [address] * (ABNORMAL) Hepatic function panel (06/19/2024 1:56 AM CLINICAL SERVICES DIRECTOR) [facility] Bilirubin, total 0.4 0.1 - 1.2 mg/dL Bilirubin, direct <0.2 0.1 - 0.3 mg/dL [facility] Protein, pl 5.9(L) 6.5 - 8.5 g/dL [facility] Albumin 3.5 3.5 - 5.0 g/dL [facility] Alk phos 61 40 - 130 Units/L [facility] ALT 5(L) 7 - 45 Units/L [facility] AST 21 10 - 45 Units/L [facility] Blood 06/19/2024 1:56 AM CLINICAL SERVICES DIRECTOR 06/19/2024 2:31 AM CLINICAL SERVICES DIRECTOR Nasir Lyons MD LAB BLOOD ORDERABLES Mel l Result Performing Organization Address [facility] Co de Phone Number [facility] [place] [address] * (ABNORMAL) CBC with auto differential (06/19/2024 1:56 AM CLINICAL SERVICES DIRECTOR) [facility] WBC 9.1 3.8 - 9.9 K/cumm Hgb 10.1(L) 11.9 - 15.5 g/dL [facility] Hct 31.7(L) 35.6 - 45.5 % [facility] Plt 148(L) 150 - 400 K/cumm [facility] MPV 10.9 9.1 - 12.3 fL [facility] RBC 3.24(L) 3.90 - 5.20 M/cumm [facility] MCV 97.8(H) 81.3 - 96.4 fL [facility] MCH 31.2 27.1 - 33.3 pg [facility] MCHC 31.9(L) 32.3 - 35.7 g/dL [facility] RDW CV 14.3 11.1 - 14.9 % [facility] RDW SD 51.9(H) 35.7 - 48.1 fL [facility] NRBC abs 0.00 0.00 - 0.01 K/cumm [facility] Blood 06/19/2024 1:56 AM CLINICAL SERVICES DIRECTOR 06/19/2024 2:32 AM CLINICAL SERVICES DIRECTOR us Nasir Lyons MD LAB BLOOD ORDERABLES Mel l Result [facility] Department [place] [address] * (ABNORMAL) Basic metabolic panel (06/19/2024 1:56 AM CLINICAL SERVICES DIRECTOR) Sodium 141 135 - 145 mmol/L Potassium, pl 3.8 3.3 - 4.9 mmol/L [facility] Chloride 107 97 - 110 mmol/L [facility] CO2 24 22 - 32 mmol/L [facility] Anion gap 10 2 - 15 mmol/L [facility] BUN 14 6 - 25 mg/dL [facility] Creatinine 1.48(H) 0.60 - 1.10 mg/dL [facility] [...] 2022. Calcium 8.4(L) 8.5 - 10.3 mg/dL [facility] Blood 06/19/2024 1:56 AM CLINICAL SERVICES DIRECTOR 06/19/2024 2:31 AM CLINICAL SERVICES DIRECTOR us Nasir Lyons MD LAB BLOOD ORDERABLES Mel badillo Result [facility] Department [place] [address] * US Kidney Complete (06/18/2024 3:53 PM CLINICAL SERVICES DIRECTOR) Anatomical Region Laterality Modality Kidney N/A Ultrasound 06/18/2024 3:55 PM CLINICAL SERVICES DIRECTOR Impressions 06/18/2024 4:09 PM CLINICAL SERVICES DIRECTOR 1. ??No hydronephrosis. ??Previously described right-sided hydronephrosis has resolved. 2. ??Normal renal echogenicity. Dictated by: Greyson Anthony M.D. The radiology attending physician has personally reviewed this study, and had reviewed and/or edited this written report and agrees with it. Electronically signed by: Immanuel Bennett M.D. Narrative 06/18/2024 4:09 PM CLINICAL SERVICES DIRECTOR EXAMINATION: COMPLETE RENAL SONOGRAM HISTORY: ??Metastatic neuroendocrine [...] Abdomen Ap 1 Vw (06/18/2024 5:54 AM CLINICAL SERVICES DIRECTOR) Anatomical Region Laterality Modality Body, Abdomen N/A Computed Radiogr aphy 06/18/2024 11:3 4 AM CLINICAL SERVICES DIRECTOR Impressions 06/18/2024 11:44 AM CLINICAL SERVICES DIRECTOR A single view of the abdomen is [...] Brock Malik M.D. Narrative 06/18/2024 11:44 AM CLINICAL SERVICES DIRECTOR EXAMINATION: Abdomen, one view. HISTORY: Check stent [...] * (ABNORMAL) Manual Differential (06/18/2024 1:37 AM CLINICAL SERVICES DIRECTOR) Differential Manual Cells Counted 114 [facility] Neutrophil abs 3.2 1.5 - 6.5 K/cumm [facility] Imm gran abs 0.0 0.0 - 0.1 K/cumm [facility] Lymphocyte abs 4.8(H) 0.8 - 3.3 K/cumm [facility] Monocyte abs 1.0(H) 0.2 - 0.8 K/cumm [facility] Neutrophil pct 36.0 % [facility] Comment: Interpretive Data Percent cell count reference ranges are not reported, since discordance with absolute values may lead to misinterpretation of CBC data. Current Interpretive Data was last revised on 2017. Lymphocyte pct 53.5 % [facility] Comment: Interpretive Data Percent cell count reference ranges are not reported, since discordance with absolute values may lead to misinterpretation of CBC data. Current Interpretive Data was last revised on 2017. Monocyte pct 10.5 % [facility] Comment: Interpretive Data Percent cell count reference ranges are not reported, since discordance with absolute values may lead to misinterpretation of CBC data. Current Interpretive Data was last revised on 2017. Blood 06/18/2024 1:37 AM CLINICAL SERVICES DIRECTOR 06/18/2024 2:16 AM CLINICAL SERVICES DIRECTOR us Nasir Lyons MD LAB BLOOD ORDERABLES Mel badillo Result [facility] Department [place] [address] * (ABNORMAL) eGFR (06/18/2024 1:37 AM CLINICAL SERVICES DIRECTOR) eGFR 33(L) >=60 mL/min/1. 73 m2 Comment: [...] last reviewed 2021. Blood 06/18/2024 1:37 AM CLINICAL SERVICES DIRECTOR 06/18/2024 2:11 AM CLINICAL SERVICES DIRECTOR Nasir Lyons MD LAB BLOOD ORDERABLES Mel l Result [facility] Department of Laboratories [place], [place] [id number] * Magnesium (06/18/2024 1:37 AM CLINICAL SERVICES DIRECTOR) Pathologist [facility] Magnesium 1.6 1.4 - 2.5 mg/dL Blood 06/18/2024 1:37 AM CLINICAL SERVICES DIRECTOR 06/18/2024 2:11 AM CLINICAL SERVICES DIRECTOR us Nasir Silvano Serena MD LAB BLOOD ORDERABLES Mel l Result Performing Organization Address [facility]/ZIP Co de Phone Number [facility] [place] [address] * (ABNORMAL) Hepatic function panel (06/18/2024 1:37 AM CLINICAL SERVICES DIRECTOR) [facility] Bilirubin, total 0.5 0.1 - 1.2 mg/dL Bilirubin, direct <0.2 0.1 - 0.3 mg/dL [facility] Protein, pl 6.0(L) 6.5 - 8.5 g/dL [facility] Albumin 3.7 3.5 - 5.0 g/dL [facility] Alk phos 62 40 - 130 Units/L [facility] ALT 11 7 - 45 Units/L [facility] AST 24 10 - 45 Units/L [facility] Blood 06/18/2024 1:37 AM CLINICAL SERVICES DIRECTOR 06/18/2024 2:11 AM CLINICAL SERVICES DIRECTOR Nasir Lyons MD LAB BLOOD ORDERABLES Mel l Result Performing Organization Address [facility] Co de Phone Number [facility] [place] [address] * (ABNORMAL) CBC with auto differential (06/18/2024 1:37 AM CLINICAL SERVICES DIRECTOR) [facility] WBC 9.0 3.8 - 9.9 K/cumm Hgb 10.2(L) 11.9 - 15.5 g/dL [facility] Hct 32.0(L) 35.6 - 45.5 % [facility] Plt 155 150 - 400 K/cumm [facility] MPV 10.4 9.1 - 12.3 fL [facility] RBC 3.28(L) 3.90 - 5.20 M/cumm [facility] MCV 97.6(H) 81.3 - 96.4 fL [facility] MCH 31.1 27.1 - 33.3 pg [facility] MCHC 31.9(L) 32.3 - 35.7 g/dL [facility] RDW CV 14.6 11.1 - 14.9 % [facility] RDW SD 52.8(H) 35.7 - 48.1 fL [facility] NRBC abs 0.00 0.00 - 0.01 K/cumm [facility] Blood 06/18/2024 1:37 AM CLINICAL SERVICES DIRECTOR 06/18/2024 2:13 AM CLINICAL SERVICES DIRECTOR us Nasir Lyons MD LAB BLOOD ORDERABLES Mel badillo Result [facility] Department [place] [address] * (ABNORMAL) Basic metabolic panel (06/18/2024 1:37 AM CLINICAL SERVICES DIRECTOR) Sodium 141 135 - 145 mmol/L Potassium, pl 3.2(L) 3.3 - 4.9 mmol/L [facility] Chloride 107 97 - 110 mmol/L [facility] CO2 26 22 - 32 mmol/L [facility] Anion gap 8 2 - 15 mmol/L [facility] BUN 14 6 - 25 mg/dL [facility] Creatinine 1.62(H) 0.60 - 1.10 mg/dL [facility] Glucose 95 70 - 199 mg/dL [facility] [...] 2022. Calcium 8.1(L) 8.5 - 10.3 mg/dL [facility] Blood 06/18/2024 1:37 AM CLINICAL SERVICES DIRECTOR 06/18/2024 2:11 AM CLINICAL SERVICES DIRECTOR us Nasir Lyons MD LAB BLOOD ORDERABLES Mel badillo Result [facility] Department [place] [address] * TRANSTHORACIC ECHO (TTE) COMPLETE W DOPPLER/CF W CONTRAST (06/17/2024 4:25 PM CLINICAL SERVICES DIRECTOR) LV EF 66 % CARDI[facility]PORT Anatomical Region Laterality Modality Ultrasound 06/17/2024 3:00 PM CLINICAL SERVICES DIRECTOR Narrative 06/17/2024 5:02 PM CLINICAL SERVICES DIRECTOR Patient name: La Chnug Date of test: 06/17/2024 Type of test: TTE w/Doppler Hospital #: 0 Date of : 1950 (F) [employer] S[employer] Stripper: MICHAEL Blankenship Referring Physician: DANA BARAJAS MD Contrast Agent: 1.1 ml Optison Administered, (1.9 ml wasted). Contrast Administered by: Supervised/Interpreted by: Parth ??MD April Diagnosis: Location: [facility] Reason for test: Shortness of Breath [...] 2=Hypo 3=Akinetic 4=Dyskin./Aneurysm 0=Not visualized) Parasternal Long [place]:MAS=1 BAS=1 MIL=1 ALLEY=1 Parasternal Short [place]:MAS=1 MIS=1 CA=1 MIL=1 MAL=1 MA=1 Apical 4 Chambers:=1 MIS=1 BIS=1 BAL=1 MAL=1 AL=1 AC=1 Apical 2 Chambers:AI=1 CA=1 BI=1 BA=1 MA=1 AA=1 AC=1 LV Global Longitudinal Strain: -16% ??(Normal <-17%) RV Global Longitudinal Strain: LV Function: Normal LV Ejection Fraction, ??(EF=54-74%) RV Function: Normal Septal Motion: Normal Pericardial Effusion: trace Atrial Septum: Normal DOPPLER/COLOR FLOW DOPPLER RESULTS: Diastolic Function: Grade I, altered relax. w/N. LA pres. Tricuspid Valve: normal TV Pulmonic Valve: Mild RI AV Regurgitation: No AR seen AV Stenosis: [...] no , no MS, normal TV, Mild RI. Diastolic function: Grade I, altered relax. w/N. [...] April By signing this report, the attending smash piecer certifies that he or she has personally supervised and interpreted the echocardiogram and has reviewed and or edited and agrees with the written comments contained within the report. Procedure Note Parth Chen MD - 06/17/2024 Patient name: La Chung Date of test: 06/17/2024 Type of test: [facility] #: 0 Date of : 1950 (F) [employer] S[employer] Stripper: MICHAEL Blankenship Referring Physician: DANA BARAJAS MD Contrast Agent: 1.1 ml Optison Administered, (1.9 ml wasted). Contrast Administered by: Supervised/Interpreted by: Parth Chen MD Diagnosis: Location: [facility] Reason for test: Shortness of Breath [...] 2=Hypo 3=Akinetic 4=Dyskin./Aneurysm 0=Not visualized) Parasternal Long [place]:MAS=1 BAS=1 MIL=1 ALLEY=1 Parasternal Short [place]:MAS=1 MIS=1 CA=1 MIL=1 MAL=1 MA=1 Apical 4 Chambers:=1 MIS=1 BIS=1 BAL=1 MAL=1 AL=1 AC=1 Apical 2 Chambers:AI=1 CA=1 BI=1 BA=1 MA=1 AA=1 AC=1 LV Global Longitudinal Strain: -16% (Normal <-17%) RV Global Longitudinal Strain: LV Function: Normal LV Ejection Fraction, (EF=54-74%) RV Function: Normal Septal Motion: Normal Pericardial Effusion: trace Atrial Septum: Normal DOPPLER/COLOR FLOW DOPPLER RESULTS: Diastolic Function: Grade I, altered relax. w/N. LA pres. Tricuspid Valve: normal TV Pulmonic Valve: Mild RI AV Regurgitation: No AR seen AV Stenosis: [...] no , no MS, normal TV, Mild RI. Diastolic function: Grade I, altered relax. w/N. [...] MD By signing this report, the attending smash piecer certifies that he or she has personally supervised and interpreted the echocardiogram and has reviewed and or edited and agrees with the written comments contained within the report. us Dana Barajas MD CV ECHO PROCEDURES Final Res ult * (ABNORMAL) Manual Differential (06/17/2024 1:25 AM CLINICAL SERVICES DIRECTOR) Differential Manual Cells Counted 126 [facility] Neutrophil abs 2.8 1.5 - 6.5 K/cumm [facility] Imm gran abs 0.1 0.0 - 0.1 K/cumm [facility] Lymphocyte abs 6.9(H) 0.8 - 3.3 K/cumm [facility] Monocyte abs 1.5(H) 0.2 - 0.8 K/cumm [facility] Neutrophil pct 24.6 % [facility] Comment: Interpretive Data Percent cell count reference ranges are not reported, since discordance with absolute values may lead to misinterpretation of CBC data. Current Interpretive Data was last revised on 2017. Lymphocyte pct 60.3 % [facility] Comment: Interpretive Data Percent cell count reference ranges are not reported, since discordance with absolute values may lead to misinterpretation of CBC data. Current Interpretive Data was last revised on 2017. Monocyte pct 13.5 % [facility] Comment: Interpretive Data Percent cell count reference ranges are not reported, since discordance with absolute values may lead to misinterpretation of CBC data. Current Interpretive Data was last revised on 2017. Metamyelocyte pct 0.8 % [facility] Variant lymph pct 0.8 % [facility] Blood 06/17/2024 1:25 AM CLINICAL SERVICES DIRECTOR 06/17/2024 1:54 AM CLINICAL SERVICES DIRECTOR us Nasir Lyons MD LAB BLOOD ORDERABLES Mel badillo Result Performing Organization Address City/State/[facility] Co de Phone Number [facility] Department [place] [address] * (ABNORMAL) eGFR (06/17/2024 1:25 AM CLINICAL SERVICES DIRECTOR) eGFR 32(L) >=60 mL/min/1. 73 m2 Comment: [...] last reviewed 2021. Blood 06/17/2024 1:25 AM CLINICAL SERVICES DIRECTOR 06/17/2024 1:49 AM CLINICAL SERVICES DIRECTOR Nasir Lyons MD LAB BLOOD ORDERABLES Mel l Result Performing Organization Address [facility] Co de Phone Number [facility] Department [place] [address] * Magnesium (06/17/2024 1:25 AM CLINICAL SERVICES DIRECTOR) Pathologist [facility] Magnesium 1.8 1.4 - 2.5 mg/dL Blood 06/17/2024 1:25 AM CLINICAL SERVICES DIRECTOR 06/17/2024 1:49 AM CLINICAL SERVICES DIRECTOR Nasir Lyons MD LAB BLOOD ORDERABLES Mel l Result Performing Organization Address [facility] Co de Phone Number [facility] [place] [address] * Hepatic function panel (06/17/2024 1:25 AM CLINICAL SERVICES DIRECTOR) Bilirubin, total 0.6 0.1 - 1.2 mg/dL Bilirubin, direct <0.2 0.1 - 0.3 mg/dL [facility] Comment:Reviewed Protein, pl 6.6 6.5 - 8.5 g/dL [facility] Albumin 3.9 3.5 - 5.0 g/dL [facility] Alk phos 75 40 - 130 Units/L [facility] ALT 11 7 - 45 Units/L [facility] AST 25 10 - 45 Units/L [facility] Blood 06/17/2024 1:25 AM CLINICAL SERVICES DIRECTOR 06/17/2024 1:49 AM CLINICAL SERVICES DIRECTOR Nasir Lyons MD LAB BLOOD ORDERABLES Mel l Result [facility] Department [place] [address] * (ABNORMAL) CBC with auto differential (06/17/2024 1:25 AM CLINICAL SERVICES DIRECTOR) Pathologist [facility] WBC 11.3(H) 3.8 - 9.9 K/cumm Hgb 11.4(L) 11.9 - 15.5 g/dL [facility] Hct 35.1(L) 35.6 - 45.5 % [facility] Plt 156 150 - 400 K/cumm [facility] MPV 10.1 9.1 - 12.3 fL [facility] RBC 3.62(L) 3.90 - 5.20 M/cumm [facility] MCV 97.0(H) 81.3 - 96.4 fL [facility] MCH 31.5 27.1 - 33.3 pg [facility] MCHC 32.5 32.3 - 35.7 g/dL [facility] RDW CV 14.6 11.1 - 14.9 % [facility] RDW SD 52.3(H) 35.7 - 48.1 fL [facility] NRBC abs 0.00 0.00 - 0.01 K/cumm [facility] Blood 06/17/2024 1:25 AM CLINICAL SERVICES DIRECTOR 06/17/2024 1:50 AM CLINICAL SERVICES DIRECTOR Nasir Lyons MD LAB BLOOD ORDERABLES Mel l Result [facility] Department [place] [address] * (ABNORMAL) Basic metabolic panel (06/17/2024 1:25 AM CLINICAL SERVICES DIRECTOR) Sodium 142 135 - 145 mmol/L Potassium, pl 3.6 3.3 - 4.9 mmol/L [facility] Chloride 107 97 - 110 mmol/L [facility] CO2 22 22 - 32 mmol/L [facility] Anion gap 13 2 - 15 mmol/L [facility] BUN 15 6 - 25 mg/dL [facility] Creatinine 1.65(H) 0.60 - 1.10 mg/dL [facility] Glucose 107 70 - 199 mg/dL [facility] [...] 2022. Calcium 8.3(L) 8.5 - 10.3 mg/dL [facility] Blood 06/17/2024 1:25 AM CLINICAL SERVICES DIRECTOR 06/17/2024 1:49 AM CLINICAL SERVICES DIRECTOR us Nasir Lyons MD LAB BLOOD ORDERABLES Mel l Result [facility] Department [place] [address] * [place] Fluoroscopy < 1 Hour (06/16/2024 3:37 PM CLINICAL SERVICES DIRECTOR) Narrative [facility] - 06/16/2024 3:37 PM CLINICAL SERVICES DIRECTOR The images from this study are not interpreted by Radiology. ??Please refer to the physician's procedure / OR operative note. us Mela Dejesus MD IMG FLUOROSCOPY PROCEDURE S Final Result [facility] * (ABNORMAL) Manual Differential (06/16/2024 12:50 AM CLINICAL SERVICES DIRECTOR) Differential Manual Cells Counted 124 [facility] Neutrophil abs 1.9 1.5 - 6.5 K/cumm [facility] Imm gran abs 0.0 0.0 - 0.1 K/cumm [facility] Lymphocyte abs 8.0(H) 0.8 - 3.3 K/cumm [facility] Monocyte abs 1.3(H) 0.2 - 0.8 K/cumm [facility] Neutrophil pct 16.9 % [facility] Comment: Interpretive Data Percent cell count reference ranges are not reported, since discordance with absolute values may lead to misinterpretation of CBC data. Current Interpretive Data was last revised on 2017. Lymphocyte pct 71.8 % [facility] Comment: Interpretive Data Percent cell count reference ranges are not reported, since discordance with absolute values may lead to misinterpretation of CBC data. Current Interpretive Data was last revised on 2017. Monocyte pct 11.3 % [facility] Comment: Interpretive Data Percent cell count reference ranges are not reported, since discordance with absolute values may lead to misinterpretation of CBC data. Current Interpretive Data was last revised on 2017. Blood 06/16/2024 12:5 0 AM CLINICAL SERVICES DIRECTOR 06/16/2024 3:05 AM CLINICAL SERVICES DIRECTOR us Nasir Lyons MD LAB BLOOD ORDERABLES Mel l Result [facility] Department [place] [address] * (ABNORMAL) eGFR (06/16/2024 12:50 AM CLINICAL SERVICES DIRECTOR) eGFR 26(L) >=60 mL/min/1. 73 m2 Comment: [...] reviewed 2021. Blood 06/16/2024 12:5 0 AM CLINICAL SERVICES DIRECTOR 06/16/2024 1:22 AM CLINICAL SERVICES DIRECTOR us Nasir Lyons MD LAB BLOOD ORDERABLES Mel l Result Performing Organization Address [facility] de Phone Number [facility] Department [place] [address] * Magnesium (06/16/2024 12:50 AM CLINICAL SERVICES DIRECTOR) Magnesium 1.9 1.4 - 2.5 mg/dL Blood 06/16/2024 12:5 0 AM CLINICAL SERVICES DIRECTOR 06/16/2024 1:22 AM CLINICAL SERVICES DIRECTOR Nasir Lyons MD LAB BLOOD ORDERABLES Mel l Result Performing Organization Address [facility] de Phone Number [facility] Department [place] [address] * (ABNORMAL) Hepatic function panel (06/16/2024 12:50 AM CLINICAL SERVICES DIRECTOR) [facility] Bilirubin, total 0.8 0.1 - 1.2 mg/dL Bilirubin, direct 0.2 0.1 - 0.3 mg/dL [facility] Comment:Reviewed Protein, pl 6.3(L) 6.5 - 8.5 g/dL [facility] Albumin 4.1 3.5 - 5.0 g/dL [facility] Alk phos 71 40 - 130 Units/L [facility] ALT 9 7 - 45 Units/L [facility] AST 26 10 - 45 Units/L [facility] Blood 06/16/2024 12:5 0 AM CLINICAL SERVICES DIRECTOR 06/16/2024 1:22 AM CLINICAL SERVICES DIRECTOR Nasir Lyons MD LAB BLOOD ORDERABLES Mel badillo Result [facility] Department [place] [address] * (ABNORMAL) CBC with auto differential (06/16/2024 12:50 AM CLINICAL SERVICES DIRECTOR) [facility] WBC 11.2(H) 3.8 - 9.9 K/cumm Hgb 11.0(L) 11.9 - 15.5 g/dL [facility] Hct 35.0(L) 35.6 - 45.5 % [facility] Plt 149(L) 150 - 400 K/cumm [facility] MPV 10.1 9.1 - 12.3 fL [facility] RBC 3.53(L) 3.90 - 5.20 M/cumm [facility] MCV 99.2(H) 81.3 - 96.4 fL [facility] MCH 31.2 27.1 - 33.3 pg [facility] MCHC 31.4(L) 32.3 - 35.7 g/dL [facility] RDW CV 15.0(H) 11.1 - 14.9 % [facility] RDW SD 54.4(H) 35.7 - 48.1 fL [facility] NRBC abs 0.00 0.00 - 0.01 K/cumm [facility] Blood 06/16/2024 12:5 0 AM CLINICAL SERVICES DIRECTOR 06/16/2024 1:22 AM CLINICAL SERVICES DIRECTOR Nasir Lyons MD LAB BLOOD ORDERABLES Mel l Result Performing Organization Address City/[facility]/ZIP Co de Phone Number [facility] Department [place] [address] * (ABNORMAL) Basic metabolic panel (06/16/2024 12:50 AM CLINICAL SERVICES DIRECTOR) [facility] Sodium 141 135 - 145 mmol/L Potassium, pl 4.0 3.3 - 4.9 mmol/L [facility] Chloride 108 97 - 110 mmol/L [facility] CO2 22 22 - 32 mmol/L [facility] Anion gap 11 2 - 15 mmol/L [facility] BUN 17 6 - 25 mg/dL [facility] Creatinine 1.97(H) 0.60 - 1.10 mg/dL [facility] Glucose 107 70 - 199 mg/dL [facility] [...] 2022. Calcium 8.7 8.5 - 10.3 mg/dL [facility] Blood 06/16/2024 12:5 0 AM CLINICAL SERVICES DIRECTOR 06/16/2024 1:22 AM CLINICAL SERVICES DIRECTOR Nasir Lyons MD LAB BLOOD ORDERABLES Mel l Result [facility] Department [place] [address] * (ABNORMAL) Manual Differential (06/15/2024 1:26 AM CLINICAL SERVICES DIRECTOR) Differential Manual Cells Counted 122 [facility] Neutrophil abs 4.5 1.5 - 6.5 K/cumm [facility] Imm gran abs 0.0 0.0 - 0.1 K/cumm [facility] Lymphocyte abs 5.8(H) 0.8 - 3.3 K/cumm [facility] Monocyte abs 0.2 0.2 - 0.8 K/cumm [facility] Basophil abs 0.1 0.0 - 0.1 K/cumm [facility] Neutrophil pct 42.6 % [facility] Comment: Interpretive Data Percent cell count reference ranges are not reported, since discordance with absolute values may lead to misinterpretation of CBC data. Current Interpretive Data was last revised on 2017. Lymphocyte pct 49.3 % [facility] Comment: Interpretive Data Percent cell count reference ranges are not reported, since discordance with absolute values may lead to misinterpretation of CBC data. Current Interpretive Data was last revised on 2017. Monocyte pct 1.6 % [facility] Comment: Interpretive Data Percent cell count reference ranges are not reported, since discordance with absolute values may lead to misinterpretation of CBC data. Current Interpretive Data was last revised on 2017. Basophil pct 0.8 % [facility] Comment: Interpretive Data Percent cell count reference ranges are not reported, since discordance with absolute values may lead to misinterpretation of CBC data. Current Interpretive Data was last revised on 2017. Variant lymph pct 5.7 % [facility] RBC morphology Normal [facility] Platelet estimate Adequate [facility] Blood 06/15/2024 1:26 AM CLINICAL SERVICES DIRECTOR 06/15/2024 1:39 AM CLINICAL SERVICES DIRECTOR Nasir Lyons MD LAB BLOOD ORDERABLES Mel badillo Result [facility] Department [place] [address] * (ABNORMAL) eGFR (06/15/2024 1:26 AM CLINICAL SERVICES DIRECTOR) Pathologist [facility] eGFR 27(L) >=60 mL/min/1. 73 m2 Comment: [...] last reviewed 2021. Blood 06/15/2024 1:26 AM CLINICAL SERVICES DIRECTOR 06/15/2024 1:36 AM CLINICAL SERVICES DIRECTOR us Nasir Lyons MD LAB BLOOD ORDERABLES Mel badillo Result [facility] Department [place] [address] * Magnesium (06/15/2024 1:26 AM CLINICAL SERVICES DIRECTOR) [facility] Magnesium 1.8 1.4 - 2.5 mg/dL Blood 06/15/2024 1:26 AM CLINICAL SERVICES DIRECTOR 06/15/2024 1:36 AM CLINICAL SERVICES DIRECTOR Nasir Lyons MD LAB BLOOD ORDERABLES Mel l Result Performing Organization Address [facility] de Phone Number [facility] [place] [address] * (ABNORMAL) Hepatic function panel (06/15/2024 1:26 AM CLINICAL SERVICES DIRECTOR) [facility] Bilirubin, total 0.6 0.1 - 1.2 mg/dL Bilirubin, direct <0.2 0.1 - 0.3 mg/dL [facility] Protein, pl 6.3(L) 6.5 - 8.5 g/dL [facility] Albumin 4.0 3.5 - 5.0 g/dL [facility] Alk phos 71 40 - 130 Units/L [facility] ALT 11 7 - 45 Units/L [facility] AST 25 10 - 45 Units/L [facility] Blood 06/15/2024 1:26 AM CLINICAL SERVICES DIRECTOR 06/15/2024 1:36 AM CLINICAL SERVICES DIRECTOR Nasir Lyons MD LAB BLOOD ORDERABLES Mel l Result Performing Organization Address [facility] de Phone Number [facility] [place] [address] * (ABNORMAL) CBC with auto differential (06/15/2024 1:26 AM CLINICAL SERVICES DIRECTOR) Pathologist [facility] WBC 10.5(H) 3.8 - 9.9 K/cumm Hgb 10.9(L) 11.9 - 15.5 g/dL [facility] Hct 34.1(L) 35.6 - 45.5 % [facility] Plt 149(L) 150 - 400 K/cumm [facility] MPV 10.1 9.1 - 12.3 fL [facility] RBC 3.47(L) 3.90 - 5.20 M/cumm [facility] MCV 98.3(H) 81.3 - 96.4 fL [facility] MCH 31.4 27.1 - 33.3 pg [facility] MCHC 32.0(L) 32.3 - 35.7 g/dL [facility] RDW CV 14.8 11.1 - 14.9 % [facility] RDW SD 53.0(H) 35.7 - 48.1 fL [facility] NRBC abs 0.00 0.00 - 0.01 K/cumm [facility] Blood 06/15/2024 1:26 AM CLINICAL SERVICES DIRECTOR 06/15/2024 1:36 AM CLINICAL SERVICES DIRECTOR us Nasir Lyons MD LAB BLOOD ORDERABLES Mel badillo Result [facility] Department [place] [address] * (ABNORMAL) Basic metabolic panel (06/15/2024 1:26 AM CLINICAL SERVICES DIRECTOR) [facility] Sodium 139 135 - 145 mmol/L Potassium, pl 4.1 3.3 - 4.9 mmol/L [facility] Chloride 107 97 - 110 mmol/L [facility] CO2 22 22 - 32 mmol/L [facility] Anion gap 10 2 - 15 mmol/L [facility] BUN 18 6 - 25 mg/dL [facility] Creatinine 1.94(H) 0.60 - 1.10 mg/dL [facility] Glucose 127 70 - 199 mg/dL [facility] [...] 2022. Calcium 8.9 8.5 - 10.3 mg/dL [facility] Blood 06/15/2024 1:26 AM CLINICAL SERVICES DIRECTOR 06/15/2024 1:36 AM CLINICAL SERVICES DIRECTOR us Nasir Lyons MD LAB BLOOD ORDERABLES Mel l Result Performing Organization Address [facility] Co de Phone Number [facility] Department [place] [address] * ECG 12 lead (06/14/2024 8:35 PM CLINICAL SERVICES DIRECTOR) Ventricular Rate EKG/Min 68 BPM [facility] Atrial Rate 68 BPM [facility] RI-Interval (MSEC) 134 ms [facility] QRS-Interval (MSEC) 104 ms [facility] QT-Interval (MSEC) 430 ms [facility] QTc 457 ms [facility] P [place] -28 degrees [facility] R [place] -2 degrees [facility] T [place] 2 degrees [facility] Diagnosis Normal sinus rhythm Normal ECG When compared with ECG of 17-APR-2019 07:30, No significant change was found Confirmed by PIPER WILSON M.D ([id number]) on 06/15/2024 5:17:10 PM [facility] 06/14/2024 8:35 PM CLINICAL SERVICES DIRECTOR 06/15/2024 5:17 PM CLINICAL SERVICES DIRECTOR us Eren Cr MD ECG ORDERABLES Final Result Performing Organization Address [facility] Co de Phone Number [facility] * CT Abdomen Pelvis W Contrast (06/14/2024 2:26 AM CLINICAL SERVICES DIRECTOR) Anatomical Region Laterality Modality Body N/A Computed Tomogra phy 06/14/2024 4:36 AM CLINICAL SERVICES DIRECTOR Impressions 06/14/2024 9:47 AM CLINICAL SERVICES DIRECTOR 1. Slight increase in size of multiple [...] Becky Golden M.D. Narrative 06/14/2024 9:47 AM CLINICAL SERVICES DIRECTOR EXAMINATION: ??Computed tomography of the abdomen and [...] by: Becky Golden M.D. Kelton Keys MD IM CT PROCEDURES Final Result * (ABNORMAL) Pro B-type natriuretic peptide (06/14/2024 12:23 AM CLINICAL SERVICES DIRECTOR) NT-proBNP 3,993(H) <=450 pg/mL Comment: Interpretive Comments: [...] et.al. Eur Heart J. 2006:27:330-337. 2. Leidy RAYMUNDO, Teresa MONK. J. AM Padmini Cardiol: Cardiovasc Imag. 2009;2: 216- 225. Interpretive Data Last Revised Date: 2018. Blood 06/14/2024 12:2 3 AM CLINICAL SERVICES DIRECTOR 06/14/2024 12:35 AM CLINICAL SERVICES DIRECTOR us Armida Guajardo MD LAB BLOOD ORDERABLES Final Resul t [facility] Department [place] [address] * (ABNORMAL) eGFR (06/14/2024 12:23 AM CLINICAL SERVICES DIRECTOR) eGFR 29(L) >=60 mL/min/1. 73 m2 Comment: [...] reviewed 2021. Blood 06/14/2024 12:2 3 AM CLINICAL SERVICES DIRECTOR 06/14/2024 12:35 AM CLINICAL SERVICES DIRECTOR us Kelton Keys MD LAB BLOOD ORDERABLES Final Res ult [facility] Department [place] [address] * (ABNORMAL) Differential, auto (06/14/2024 12:23 AM CLINICAL SERVICES DIRECTOR) Neutrophil abs 3.8 1.5 - 6.5 K/cumm Imm gran abs 0.0 0.0 - 0.1 K/cumm [facility] Lymphocyte abs 2.4 0.8 - 3.3 K/cumm [facility] Monocyte abs 3.4(H) 0.2 - 0.8 K/cumm [facility] Eosinophil abs 0.0 0.0 - 0.5 K/cumm [facility] Basophil abs 0.0 0.0 - 0.1 K/cumm [facility] Neutrophil pct 39.4 % [facility] Comment: Confirmed by smear review Interpretive Data Percent cell count reference ranges are not reported, since discordance with absolute values may lead to misinterpretation of CBC data. Current Interpretive Data was last revised on 2017. Imm gran pct 0.4 % [facility] Comment: Interpretive Data Percent cell count reference ranges are not reported, since discordance with absolute values may lead to misinterpretation of CBC data. Current Interpretive Data was last revised on 2017. Lymphocyte pct 24.8 % [facility] Comment: Interpretive Data Percent cell count reference ranges are not reported, since discordance with absolute values may lead to misinterpretation of CBC data. Current Interpretive Data was last revised on 2017. Monocyte pct 35.1 % [facility] Comment: Interpretive Data Percent cell count reference ranges are not reported, since discordance with absolute values may lead to misinterpretation of CBC data. Current Interpretive Data was last revised on 2017. Eosinophil pct 0.0 % [facility] Comment: Interpretive Data Percent cell count reference ranges are not reported, since discordance with absolute values may lead to misinterpretation of CBC data. Current Interpretive Data was last revised on 2017. Basophil pct 0.3 % [facility] Comment: Interpretive Data Percent cell count reference ranges are not reported, since discordance with absolute values may lead to misinterpretation of CBC data. Current Interpretive Data was last revised on 2017. Blood 06/14/2024 12:2 3 AM CLINICAL SERVICES DIRECTOR 06/14/2024 12:36 AM CLINICAL SERVICES DIRECTOR us Kelton Keys MD LAB BLOOD ORDERABLES Final Res ult [facility] Department [place] [address] * (ABNORMAL) Comprehensive metabolic panel (06/14/2024 12:23 AM CLINICAL SERVICES DIRECTOR) Sodium 139 135 - 145 mmol/L Potassium, pl 4.6 3.3 - 4.9 mmol/L [facility] Chloride 110 97 - 110 mmol/L [facility] CO2 19(L) 22 - 32 mmol/L [facility] Anion gap 10 2 - 15 mmol/L [facility] BUN 16 6 - 25 mg/dL [facility] Creatinine 1.79(H) 0.60 - 1.10 mg/dL [facility] Glucose 141 70 - 199 mg/dL [facility] [...] 2022. Calcium 8.9 8.5 - 10.3 mg/dL [facility] Bilirubin, total 0.4 0.1 - 1.2 mg/dL [facility] Protein, pl 6.4(L) 6.5 - 8.5 g/dL [facility] Albumin 3.9 3.5 - 5.0 g/dL [facility] Alk phos 79 40 - 130 Units/L [facility] ALT 8 7 - 45 Units/L [facility] AST 30 10 - 45 Units/L [facility] Blood 06/14/2024 12:2 3 AM CLINICAL SERVICES DIRECTOR 06/14/2024 12:35 AM CLINICAL SERVICES DIRECTOR us Kelton Keys MD LAB BLOOD ORDERABLES Final Res ult [facility] Department [place] [address] * (ABNORMAL) CBC with auto differential (06/14/2024 12:23 AM CLINICAL SERVICES DIRECTOR) WBC 9.8 3.8 - 9.9 K/cumm Hgb 11.6(L) 11.9 - 15.5 g/dL [facility] Hct 36.6 35.6 - 45.5 % [facility] Plt 145(L) 150 - 400 K/cumm [facility] MPV 10.9 9.1 - 12.3 fL [facility] RBC 3.68(L) 3.90 - 5.20 M/cumm [facility] MCV 99.5(H) 81.3 - 96.4 fL [facility] MCH 31.5 27.1 - 33.3 pg [facility] MCHC 31.7(L) 32.3 - 35.7 g/dL [facility] RDW CV 14.7 11.1 - 14.9 % [facility] RDW SD 54.8(H) 35.7 - 48.1 fL [facility] NRBC abs 0.00 0.00 - 0.01 K/cumm [facility] Blood 06/14/2024 12:2 3 AM CLINICAL SERVICES DIRECTOR 06/14/2024 12:36 AM CLINICAL SERVICES DIRECTOR us Kelton Keys MD LAB BLOOD ORDERABLES Final Res ult [facility] Department [place] [address] documented in this encounter Visit Diagnoses Diagnosis [...] unspecified 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 ANNE-MARIE (acute kidney injury) (HCC) 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 documented in this encounter Admitting Diagnoses Diagnosis [...] Sat06/15/24 at 0940 Given 06/19/2024 5:11 PM CLINICAL SERVICES DIRECTOR 650 mg Given 06/17/2024 8:48 PM CLINICAL SERVICES DIRECTOR 650 mg Given 06/15/2024 10:00 AM CLINICAL SERVICES DIRECTOR 650 mg amLODIPine (NORVASC) tablet 5 mg 5 mg, oral, Daily, First dose on Sat06/14/24 at 1522 Given 06/20/2024 8:14 AM CLINICAL SERVICES DIRECTOR 5 mg Given 06/18/2024 9:22 AM CLINICAL SERVICES DIRECTOR 5 mg Given 06/17/2024 8:48 AM CLINICAL SERVICES DIRECTOR 5 mg Carrier Fluids for Secondary Infusion [...] or chew capsule Given 06/20/2024 8:14 AM CLINICAL SERVICES DIRECTOR 30 mg Given 06/18/2024 9:22 AM CLINICAL SERVICES DIRECTOR 30 mg Given 06/17/2024 8:48 AM CLINICAL SERVICES DIRECTOR 30 mg enoxaparin (LOVENOX) syringe 30 mg 30 mg, subcutaneous, Daily (for enoxaparin), First dose on 06/14/24 at 2100, Indications: Deep Vein Thrombosis Prevention, On hold since Lydia 06/18/2024 at 0745 until manually unheldIndications:Deep Vein Thrombosis Prevention Given 06/17/2024 8:42 PM CLINICAL SERVICES DIRECTOR 30 mg Right Lower Abdomen Given 06/16/2024 8:03 PM CLINICAL SERVICES DIRECTOR 30 mg Ri ght Lower Abdomen Given 06/15/2024 9:41 PM CLINICAL SERVICES DIRECTOR 30 mg Ri ght Lower Abdomen heparin 10 unit/mL flush 50 Units 50 Units (5 mL), intra-catheter, As needed, line care, Starting on 06/15/24 at 1043 Given 06/18/2024 1:30 A M CLINICAL SERVICES DIRECTOR 50 Units Given 06/15/2024 10:47 AM CLINICAL SERVICES DIRECTOR 50 Units HYDROcodone-acetaminophen (NORCO) 5-325 mg per tablet 1 tablet 1 tablet, oral, Every 4 hours PRN, breakthrough pain, Starting on 06/14/24 at 1553, Indications: PainIndications:Pain hydrOXYzine (ATARAX) tablet 25 mg 25 mg, oral, Nightly PRN, anxiety, Starting on 12/8/24 at 2039 Given 06/14/2024 9:12 PM CLINICAL SERVICES DIRECTOR 25 mg iothalamate meglumine (CONRAY) 60 % injection As needed, Starting on Sat06/16/24 at 1531, Intra-Op Given 06/16/2024 3:31 PM CLINICAL SERVICES DIRECTOR 10 mL levothyroxine (SYNTHROID) tablet 100 mcg 100 mcg, oral, Daily (early AM), First dose on Sat06/14/24 at 1522, Administer on an empty stomach, preferably 30 minutes before breakfast. Take 4 hours apart from antacids, iron and calcium products. Separate from tube feeds, if applicable. Given 06/20/2024 5:56 AM CLINICAL SERVICES DIRECTOR 100 mcg Given 06/19/2024 5:11 AM CLINICAL SERVICES DIRECTOR 100 mcg Given 06/18/2024 6:08 AM CLINICAL SERVICES DIRECTOR 100 mcg lidocaine (LIDODERM) 5 % patch 2 patch 2 patch, transdermal, Administer over 12 Hours, Every 24 hours, First dose (after last reorder) on Sat06/17/24 at 1415, Do not cover the holes on the top side of the patch., Apply to affected area: other magnesium sulfate 4 g/100 mL in water (premix) 4 g 4 g, intravenous, Administer over 90 Minutes, Every 4 hours PRN, magnesium replacement, Starting on Lydia 06/18/24 at 0442, For magnesium level of 1.2-1.5 mg/dL, Indications: hypomagnesemiaIndications:hypomagnesemia New Bag 06/20/2024 4:58 AM CLINICAL SERVICES DIRECTOR 4 g magnesium sulfate 6 g in sodium chloride 0.9% 250 mL IVPB 6 g, intravenous, at 131 mL/hr, Administer over 120 Minutes, Every 4 hours PRN, magnesium replacement, Starting on Lydia 06/18/24 at 0442, For magnesium level less than 1.2 mg/dL and call/notify provider., Indications: hypomagnesemiaIndications:hypomagnesemia ondansetron (ZOFRAN) injection 4 mg 4 mg, intravenous, Administer over 2 Minutes, Every 6 hours PRN, nausea, vomiting, Starting on Sat06/17/24 at 1548 ondansetron (ZOFRAN) injection 4 mg 4 mg, intravenous, Administer over 2 Minutes, Every 6 hours PRN, nausea, vomiting, if not tolerating PO, Starting on Sat06/19/24 at 1148, Indications: nausea and vomitingIndications:nausea and vomiting Given 06/19/2024 12:01 PM CLINICAL SERVICES DIRECTOR 4 mg ondansetron ODT (ZOFRAN-ODT) disintegrating tablet 4 mg 4 mg, oral, Every 6 hours PRN, nausea, vomiting, Starting on Sat06/19/24 at 1148, Indications: nausea and vomitingIndications:nausea and vomiting oxyBUTYnin (DITROPAN) tablet 5 mg 5 mg, oral, 3 times daily PRN, bladder spasms, Starting on Lydia 06/18/[address] (PROTONIX) extended release tablet 40 mg 40 mg, oral, Daily, First dose on Sat06/17/24 at 0900, Do not crush, chew, cut, dissolve, open or otherwise manipulate tablet/capsule., Indications: Treatment of Non-Bleeding Gastric DisorderIndications:Treatment of Non-Bleeding Gastric Disorder Given 06/20/2024 8:14 AM CLINICAL SERVICES DIRECTOR 40 mg Given 06/18/2024 9:22 AM CLINICAL SERVICES DIRECTOR 40 mg Given 06/17/2024 8:47 AM CLINICAL SERVICES DIRECTOR 40 mg potassium chloride ER (KLOR-CON) extended release tablet [...] chewed., Indications: hypokalemiaIndications:hypokalemia Given 06/20/2024 5:56 AM CLINICAL SERVICES DIRECTOR 40 mEq Given 06/18/2024 6:08 AM CLINICAL SERVICES DIRECTOR 40 mEq prochlorperazine (COMPAZINE) injection 5 mg 5 mg, intravenous, Administer over 2 Minutes, Every 6 hours PRN, nausea, vomiting, Second line for nausea, Starting on Sat06/17/24 at 1548 Given 06/19/2024 12:20 PM CLINICAL SERVICES DIRECTOR 5 mg sodium chloride 0.9% flush 0.5-20 mL 0.5-20 mL, intra-catheter, Every 8 hours scheduled, First dose on Sat06/14/24 at 1523, Flush volume based on line type and size. , Indications: FlushingIndications:Flushing Given 06/20/2024 11:42 AM CLINICAL SERVICES DIRECTOR 1 0 mL Given 06/17/2024 8:43 PM CLINICAL SERVICES DIRECTOR 10 mL Given 06/16/2024 8:12 PM CLINICAL SERVICES DIRECTOR 10 mL sodium chloride 0.9% flush 0.5-20 [...] line type and size. , Indications: FlushingIndications:Flushing sodium chloride 0.9% flush 0.5-20 mL 0.5-20 mL, intra-catheter, As needed, line care, Starting on Sat06/19/24 at 0910, Pre-Op/Floor (IR), Flush volume based on line type and size. Flush before and after each use. , Indications: FlushingIndications:Flushing sodium chloride 0.9% flush 10-20 mL 10-20 [...] size, and protocol. Given 06/20/2024 8:14 AM CLINICAL SERVICES DIRECTOR 10 mL sodium chloride 0.9% irrigation As needed, Starting on Sat06/16/24 at 1531, Intra-Op Given 06/16/2024 3:32 PM CLINICAL SERVICES DIRECTOR 3,000 mL Surgical Site Given 06/16/2024 3:31 PM CLINICAL SERVICES DIRECTOR 1,000 mL Watson rgical Site documented in this encounter Discontinued Medications Medication Sig Discontinue Reason Start Date End Da te ipratropium (ATROVENT) 42 mcg (0.06 %) nasal spray [place] 1 spray twice a day by nasal route for 13 days. 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 Scheduled Medication Order 06/18/2024 06/19/2024 06/20/2024 amLODIPine (NORVASC) tablet 5 mg 5 mg, oral, Daily, First dose on 06/14/24 at 1522 0922 (Given - Provider: Sis Pedraza RN) 0900 (Not Given - Provider: Sis Pedraza RN - Reason: Patient not available - Comment: Patient having TACE/Liver biopsy.) 0814 (Given - Provider: Marcia Haynes, [place]) DOXOrubicin (ADRIAMYCIN) 50 mg in ioversoL (OPTIRAY [...] chew capsule 0922 (Given - Provider: Sis Pedraza RN) 0900 (Not Given - Provider: Sis Pedraza RN - Reason: Patient not available - Comment: Patient having TACE/Liver biopsy) 0814 (Given - Provider: Marcia Haynes RN) enoxaparin (LOVENOX) syringe 30 mg 30 mg, [...] if applicable. 0608 (Given - Provider: Nohelia Moore, RN) 0511 (Given - Provider: Nati Rousseau, [place]) 0556 (Given - Provider: Soniya López [...] 25 mg, oral, Daily, First dose on 06/14/24 at 1522, On hold since 06/14/2024 at 1521 until manually unheld 0900 (Dose Auto Held) 0900 (Dose Auto Held) 0900 (Hold - Provider: Marcia Haynes RN - Reason: See Provider Order)1730 (Unheld by Provider - Provider: Automatic Discharge Provider) octreotide (SandoSTATIN) injection 150 mcg (COMPLETED) 150 mcg, subcutaneous, Once, On Sat06/19/24 at 1015, For 1 dose, Pre-Procedure (IR), Refrigerate 0948 (Given - Provider: Manpreet Torres, RN) pantoprazole DR (PROTONIX) extended release tablet 40 [...] TACE/Liver biopsy) 0814 (Given - Provider: Marcia Haynse, [place]) sodium chloride 0.9% flush 0.5-20 mL [...] - Reason: Other)1142 (Given - Provider: Marcia Haynes, [place]) sodium [...] mL (COMPLETED) 10 mL, intra-catheter, Once, On 06/20/24 at [...] line care, Starting on 06/15/24 at 1043 0130 (Given - Provider: Nohelia [...] 4 hours PRN, breakthrough pain, Starting on 06/14/24 at 1553, Indications: Pain hydrOXYzine (ATARAX) tablet [...] cream topical, As needed, pain, Starting on 06/14/24 at 1521, Apply to affected area: other, [...] and vomiting 1201 (Given - Provider: Sis Pedraza, [place]) ondansetron ODT (ZOFRAN-ODT) disintegrating tablet 4 mg(Linked Group 1) 4 mg, oral, Every 6 hours PRN, nausea, vomiting, Starting on Sat06/19/24 at 1148, Indications: nausea and vomiting 1201 (See Alternative - Provider: Sis Pedraza RN) oxyBUTYnin (DITROPAN) tablet 5 mg 5 mg, oral, 3 times daily PRN, bladder spasms, Starting on Lydia 06/18/24 at 0745 potassium chloride ER (KLOR-CON) extended [...] Indications: hypokalemia 0608 (Given - Provider: Nohelia Moore RN) 0556 (Given - Provider: Soniya López [...] Count Last Ordered Date First Ordered Date heparin 100 unit/mL injection 500 Units 1 1 08/21/2023 sodium chloride 0.9% flush 10 mL 1 06/20/20 Carrier Fluids for Secondary Infusion - 0.9% Sodium Chloride 3 06/19/2024 06/14/2024 docusate sodium (COLACE) capsule 100 mg 1 1 08/20/2023 DOXOrubicin (ADRIAMYCIN) 50 mg in ioversoL (OPTIRAY 320) 5 mL intra-arterial 1 06/19/2024 fentaNYL (SUBLIMAZE) preserv ative free injection 4 06/19/2024 heparin in 0.9% sodium chlor shaq 1,000 units/500 mL (2 unit/mL) infusion (premix) 1 06/19/2024 lidocaine (PF) (XYLOCAINE) 1 0 mg/mL (1 %) preservative free injection 2 06/19/2024 midazolam (VERSED) 1 mg/mL injection 4 06/07 octreotide (SandoSTATIN) injection 150 mcg 1 06/19/2024 ondansetron (ZOFRAN) injection 4 mg 5 06/1906/13/2024 ondansetron ODT (ZOFRAN-ODT) disintegrating tablet 4 mg 1 06/19/2024 sodium chloride 0.9% flush 0.5-20 mL 6 06/0706/14/2024 sodium chloride 0.9% flush 10-20 mL 1 06/19 sodium chloride 0.9% flush 5-10 mL 1 2023 sodium chloride 0.9% infusion 6 06/19/2024 06/14/2024 magnesium sulfate 4 g/100 mL in water (premix) 4 g 1 06/18/2024 magnesium sulfate 6 g in sod ium chloride 0.9% 250 mL IVPB 1 06/18/2024 oxyBUTYnin (DITROPAN) tablet 5 mg 1 024 potassium chloride ER (KLOR- CON) extended release tablet 40 mEq 1 06/18/2024 lidocaine (LIDODERM) 5 % patch [address] (PROTONIX) e xtended release tablet 40 mg 1 06/17/2024 perflutren protein-a (OPTISO N) 3 mL in sodium chloride 0.9% 8 mL syringe 1 06/17/2024 prochlorperazine (COMPAZINE) injection 5 mg 3 06/17/2024 06/14/2024 cefTRIAXone (ROCEPHIN) 1,000 mg/10 mL in sterile water (premix) 1,000 mg 1 06/16/2024 famotidine (PEPCID) injection 20 mg 1 06/16 fentaNYL (SUBLIMAZE) preserv ative free injection 50 mcg 1 06/16/2024 haloperidol (HALDOL) injection 1 mg 1 06/16 hydrALAZINE (APRESOLINE) injection 5 mg 1 1 08/17/2023 HYDROmorphone (DILAUDID) injection 0.2 mg 1 06/16/2024 HYDROmorphone (DILAUDID) injection 0.4 mg 1 06/16/2024 naloxone (NARCAN) 0.4 mg/mL injection 0.04-0.4 mg 1 06/16/2024 oxyCODONE (ROXICODONE) tablet 5 mg 1 2023 acetaminophen (TYLENOL) tablet 650 mg 1 03/2024 alteplase (CATHFLO) 1 mg/mL syringe (premix) 1 mg 1 06/15/2024 heparin 10 unit/mL flush 50 Units 1 heparin 100 unit/mL injection 100 Units 2 1 08/16/2023 acetaminophen (TYLENOL) tablet 1,000 mg 1 1 08/15/2023 amLODIPine (NORVASC) tablet 5 mg 1 06/14/[address] (CYMBALTA) ext ended release capsule 30 mg 1 06/14/2024 enoxaparin (LOVENOX) syringe 30 mg 1 2023 fentaNYL (SUBLIMAZE) preserv ative free injection 25 mcg 1 06/14/2024 HYDROcodone-acetaminophen (N ORCO) 5-325 mg per tablet 1 tablet 1 06/14/2024 hydrOXYzine (ATARAX) tablet 25 mg 1 ioversoL (OPTIRAY 350) syringe 100 mL 1 02/2024 levothyroxine (SYNTHROID) tablet 100 mcg 1 06/14/2024 lidocaine (ASPERCREME) 4 % patch 2 patch 1 06/14/2024 lidocaine-prilocaine (EMLA) 2.5-2.5 % cream 1 06/14/2024 losartan (COZAAR) tablet 25 mg 1 06/14/2024 pantoprazole (PROTONIX) 40 m g in sodium chloride 0.9% 10 mL IV Syringe 1 06/14/2024 sodium chloride 0.9% bolus 1,000 mL 1 06/13 Lab Orders Without Results Count Last Ordered D ate First Ordered Date PRO B-TYPE NATRIURETIC PEPTIDE 1 06/14/2024 Nursing Count Last Ordered Date First Orde red Date VERIFY INFORMED CONSENT 1 06/20/2024 SKIN PREP 1 06/19/2024 VOID SENIOR BUDGET ANALYST TO OR 2 06/19/2024 Consult Count Last [...] 06/16/2024 documented in this encounter Care Teams Sanitation Truck Driver Relationship Specialty Start Date End Date Julio César Briseno MD PCP - General 10/01/16 Eren Cr MD Referring Physician Medical Oncology 11/25/18 Yohana Bowen MD Radiation Oncologist Radiation Oncology 11/25/18 Alejo Mi MD [address] [address] Referring Physician Nephrology 03/07/23 documented as of this encounter
--- OUTSIDE RECORDS SUMMARY | 2024-06-25 22:04 | XMS_ITS | Encounter Summary ---
Author Organization [facility] Address [address] [place] [address] Phone Care Team Providers Care Scale Assembly Set Up Worker Name Role Phone Julio César Briseno MD Primary Care Provider Eren Cr MD Unavailable [phone] Yohana Bowen MD Unavailable Alejo Mi MD Unavailable [phone] Encounter Details Date Type Department Care Team (Late st Contact Info) Description 06/12/2024 Orders Only [facility] Oncology [address] [facility] [address] [place] [address] Claude Browning MD [address] [facility] [address] [place] [address] Social History Tobacco Use Types Packs/Day Years [...] on file 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
--- OUTSIDE RECORDS SUMMARY | 2024-06-25 22:04 | XMS_ITS | Encounter Summary ---
Author Organization [facility] Address [address] [place] [address] Phone Care Team Providers Care Wind Turbine Sheet Metal Worker Name Role Phone Julio César Briseno MD Primary Care Provider Eren Cr MD Unavailable [phone] Yohana Bowen MD Unavailable Alejo Mi MD Unavailable [phone] Encounter Details Date Type Department Care Team (Late st Contact Info) Description 06/22/2024 Orders Only [facility] Oncology [address] [place] [address] Eren Cr MD [address] [place] [address] Neuroendocrine carcinoma (HCC) (Primary Dx); 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 More than 4 times per year 06/20/2024 Do you belong to any clubs o r organizations such as taoism groups, unions, fraternal or athletic groups, or [...] any time in the past 12 m [facility], were you homeless or living in a jail (including now)? No 06/20/2024 Personal Safety Answer Date Recorded Have you ever been in or are you currently in a harmful physical or emotional relationship or is someone making you feel afraid or unsafe? 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) documented in this encounter Orders Appointment Requests Count Last Ordered Date Fi rst Ordered Date ONCBCN CLINIC APPOINTMENT REQUEST 1 024 ONCBCN INJECTION APPOINTMENT REQUEST 1 06/07 ONCBCN LAB APPOINTMENT 1 06/22/2024 documented in this encounter Care Teams Wind Turbine Sheet Metal Worker Relationship Specialty Start Date End Date Julio César Briseno MD PCP - General 10/01/16 Eren Cr MD Referring Physician Medical Oncology 11/25/18 Yohana Bowen MD Radiation Oncologist Radiation Oncology 11/25/18 Alejo Mi MD [address] [address] Referring Physician Nephrology 03/07/23 documented as of this encounter
--- OUTSIDE RECORDS SUMMARY | 2024-06-25 22:04 | XMS_ITS | Encounter Summary ---
Author Organization [facility] Healthcare Address [address] [place] [address] Care Team Providers Care Prepleater Name Role Phone Julio César Briseno MD Primary Care Provider [phone] Eren Cr MD Unavailable [phone] Yohana Bowen MD Unavailable Alejo Mi MD Unavailable [phone] Encounter Details Date Type Department Care Team (Late st Contact Info) Description 06/22/2024 Telephone [facility] Radiology 1 [place] [address] Dorota Rogers, RN Social History Tobacco Use Types Packs/Day [...] materials from doctor or pharmacy Never 11/07/2022 [facility] Utilities Answer Date Recorded In the past [...] often do you attend chur ch or gnosticism services? More than 4 times per year 06/20/2024 Do you belong to any clubs o r organizations such as mandaen groups, unions, fraternal or athletic groups, or [...] any time in the past 12 m [facility], were you homeless or living in a prison (including now)? No 06/20/2024 Personal Safety Answer Date Recorded Have you ever been in or are you currently in a harmful physical or emotional relationship or is someone making you feel afraid or unsafe? Denies 06/16/2024 Comments No Sex and Gender Information Value Date Recorded Sex Assigned at Not on file Legal Sex Female 2:41 PM LMSW Gender Identity Not on file Sexual Orientation Straight 02/19/2021 9: 29 AM CDT Occupation Industry Job Start Date Job End Date retired Not on file Not on file Not on file documented as of this encounter Miscellaneous Notes * Telephone Encounter - Dorota Rogers RN - 06/22/2024 11:22 AM CST Made post-procedure call. Left voicemail message for patient with NE's direct office number requesting return call. documented in this encounter Plan of Treatment Not on file documented as of this encounter Visit Diagnoses Not on filedocumented in this encounter Care Teams Prepleater Relationship Specialty Start Date End Date Julio César Briseno MD PCP - General 10/01/16 Erne Cr MD Referring Physician Medical Oncology 11/25/18 Yohana Bowen MD Radiation Oncologist Radiation Oncology 11/25/18 Alejo Mi MD [address] [address] Referring Physician Nephrology 03/07/23 documented as of this encounter
--- OUTSIDE RECORDS SUMMARY | 2024-06-25 22:04 | XMS_ITS | Encounter Summary ---
Author Organization [facility] Healthcare Address [address] [place] [address] Care Team Providers Care Business Excellence Manager Name Role Phone Julio César Briseno MD Primary Care Provider [phone] Eren Cr MD Unavailable [phone] Yohana Bowen MD Unavailable Alejo Mi MD Unavailable [phone] Encounter Details Date Type Department Care Team (Late st Contact Info) Description 06/16/[address] 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 No answer, no message left per department policy. ON FARMWORKER documented in this encounter Plan of Treatment Not on file documented as of this encounter Visit Diagnoses Not on filedocumented in this encounter Care Teams Business Excellence Manager Relationship Specialty Start Date End Date Julio César Briseno MD PCP - General 10/01/16 Eren Cr MD Referring Physician Medical Oncology 11/25/18 Yohana Bowen MD Radiation Oncologist Radiation Oncology 11/25/18 Alejo Mi MD [id number] [place] [address] Referring Physician Nephrology 03/07/23 documented as of this encounter
--- OUTSIDE RECORDS SUMMARY | 2024-06-25 22:04 | XMS_ITS ---
Author Organization [facility] Address [address] [place] [address] Care Team Providers Care Jewelry Engraver Name Role Phone Julio César Briseno MD Primary Care Provider [phone] Eren Cr MD Unavailable [phone] Yohana Bowen MD Unavailable Alejo Mi MD Unavailable [phone] Active Problems Problem Noted Date Diagnosed Date Exertional dyspnea 06/17/2024 Assessment & Plan (06/18/2024 10:44 AM CATALYST OPERATOR): Reports noting increased exertional dyspnea over last year or so. Nt-probnp elevated on admission - TTE with grade 1 diastolic dysfunction, thickened LV but otherwise normal systolic function EF 66% and normal valvular function ANNE-MARIE (acute kidney injury) (H CC) and Mild right hydroureteronephrosis 06/14/2024 Assessment & Plan (06/20/2024 11:38 PM CATALYST OPERATOR): Cr b/l is 1.3-1.5. It is 2 [...] 06/14/2024 Assessment & Plan (06/17/2024 3:29 PM CATALYST OPERATOR): Likely related to ANNE-MARIE and R ureteral process. -Improved and tolerating oral intake -PPI IV BID->oral BID for now. -Nausea control. Pain control. HTN (hypertension) 06/14/2024 Assessment & Plan (06/20/2024 11:37 PM CATALYST OPERATOR): Home amlodipine. Losartan held throughout admission due to ANNE-MARIE and blood pressure reasonably controlled on amlodipine. Can consider restarting outpatient if uptrend noted Anxiety 06/14/2024 Assessment & Plan (06/14/2024 3:48 PM CATALYST OPERATOR): She reports taking duloxetine 30 daily for over a year. 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 Received denosumab 03/30 120mg SQ. Ca on presentation to [facility] 8.2; following surgical procedure, Ca acutely dropped [...] 03/30 120mg SQ. Ca on presentation to [facility] 8.2; following surgical procedure, Ca acutely dropped [...] 03/30 120mg SQ. Ca on presentation to [facility] 8.2; following surgical procedure, Ca acutely dropped [...] 03/30 120mg SQ. Ca on presentation to [facility] 8.2; following surgical procedure, Ca acutely dropped [...] 10/03/2015 Assessment & Plan (06/19/2024 9:47 PM CATALYST OPERATOR): Of the ileum, w/ mets to the [...] (04/09/2022 11:58 PM CDT): Follows with Dr. Cr in medical oncology, currently on Cabinet study [...] on diagnostic imaging of breas t 06/07/2014 Current Oncology Plans cabozantinib (Cabometyx) PO daily 28 day cycles* Plan Start Date:05/12/2024 Plan Provider:Eren Cr MD Linked Problems Neuro-endocrine carcinoma (H CC) Treatment Medications Current Day (Day 1 , Cycle 1 - Planned for 05/12/2024) Next Day (Day 1, Cycle 2 - Planned for 06/09/2024) No medications scheduled. No medications schedul ed. No medications scheduled. 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 Hydration Therapy Plan* Plan Start Date:10/13/2021 Plan Provider:Eren Cr MD Linked Problems Neuroendocrine carcinoma (HC C)Dehydration Treatment Medications No medications scheduled. 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 Magnesium Infusion & Electrolyte Replacement* Plan Start Date:11/13/2021 Plan Provider:Eren Cr MD Linked Problems Hypomagnesemia Treatment Medications No medications scheduled. Past Plans Oncology Treatment (2) Plan Name Start Date Discontinue Date Treatment Medications Discontinue Reason Plan Provider Cycles [id number] - [facility] - [facility] - [id number] - Open label Cabozantinib 07/03/2005/12/2024 INV-[facility] cabozantinib (/[id number])[facility]V-[facility] cabozantinib/pl acebo (A0 ) Progression Eren Cr MD 35 of 48 cycles started Specialty Infusion Treatment 3 Plan Name Start Date Discontinue Date Treatment Medications Discontinue Reason Plan Provider Alteplase (CATHFLO ACTIVASE) - orders for occluded catheters 05/28/2022 08/27/2023 No medications scheduled. Orders Eren Cr MD Radiation Treatments * Plan Last Treated On Elapsed Days Fractions Treated Prescribed Fraction Dose Prescribed Total Dose Lutathera 08/05/2019 224 4 200 cGy 800 cGy Reference Point Last Treated On Elapsed Days Session Dose Total Dose Lutathera 08/05/2019 224 200 cGy 800 cGy Lifetime Dose Tracking * Chemical Lifetime Dose Automatic Entry Manual Entr y Fluoro Time 21.233 minutes 21.233 minutes 0 minutes Air kerma at the reference point (Ka,r) 1,180.16 mGy 1 ,180.16 mGy 0 mGy DLP 28,636 mGycm 28,636 mGycm 0 mGycm
--- OUTSIDE RECORDS SUMMARY | 2024-06-25 22:04 | XMS_ITS | Encounter Summary ---
Author Organization [facility] Healthcare Address [address] [place] [address] Care Team Providers Care Volunteer Services Coordinator Name Role Phone Julio César Briseno MD Primary Care Provider [phone] Eren Cr MD Unavailable [phone] Yohana Bowen MD Unavailable Alejo Mi MD Unavailable [phone] Encounter Details Date Type Department Care Team (Late st Contact Info) Description 06/17/2024 Orders Only [facility] Radiology 1 [place] [address] Dorota Rogers, RN Social History Tobacco Use [...] materials from doctor or pharmacy Never 11/07/2022 [facility] Utilities Answer Date Recorded In the past 12 months has th e electric, gas, oil, or water [employer] threatened to shut off services in your [...] often do you attend chur ch or yazidism services? More than 4 times per year 06/20/2024 Do you belong to any clubs o r organizations such as mu-ism groups, unions, fraternal or athletic groups, or [...] any time in the past 12 m [facility], were you homeless or living in a halfway (including now)? No 06/20/2024 Personal Safety Answer Date Recorded Have you ever been in or are you currently in a harmful physical or emotional relationship or is someone making you feel afraid or unsafe? 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 Gender Identity Not on file Sexual Orientation Straight 02/19/2021 9: 29 AM CDT Occupation Industry Job Start Date Job End Date retired Not on file Not on file Not on file documented as of this encounter Plan of Treatment Not on file documented as of this encounter Visit Diagnoses Not on filedocumented in this encounter Care Teams Volunteer Services Coordinator Relationship Specialty Start Date End Date Julio César Briseno MD PCP - General 10/01/16 Eren Cr MD Referring Physician Medical Oncology 11/25/18 Yohana Bowen MD Radiation Oncologist Radiation Oncology 11/25/18 Alejo Mi MD [address] [place] [address] Referring Physician Nephrology 03/07/23 documented as of this encounter
--- OUTSIDE RECORDS SUMMARY | 2024-06-25 22:04 | XMS_ITS | Encounter Summary ---
Author Organization [facility] Address [address] [place] [address] Phone Care Team Providers Care Supervising Nurse Name Role Phone Julio César Briseno MD Primary Care Provider Eren Cr MD Unavailable [phone] Yohana Bowen MD Unavailable Alejo Mi MD Unavailable [phone] Encounter Details Date Type Department Care Team (Late st Contact Info) Description 06/17/2024 Orders Only [facility] Oncology [address] [facility] [address] [place] [address] Claude Browning MD [address] [facility] [address] [place] [address] Social History Tobacco Use Types [...] materials from doctor or pharmacy Never 11/07/2022 [facility] Utilities Answer Date Recorded In [...] often do you attend chur ch or voodoo services? 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 Gender Identity Not on file Sexual Orientation Straight 02/19/2021 9: 29 AM CDT Occupation Industry Job Start Date Job End Date retired Not on file Not on file Not on file documented as of this encounter Plan of Treatment Not on file documented as of this encounter Visit Diagnoses Not on filedocumented in this encounter Care Teams Supervising Nurse Relationship Specialty Start Date End Date Julio César Briseno MD PCP - General 10/01/16 Eren Cr MD Referring Physician Medical Oncology 11/25/18 Yohana Bowen MD Radiation Oncologist Radiation Oncology 11/25/18 Alejo Mi MD [address] [place] [address] Referring Physician Nephrology 03/07/23 documented as of this encounter
--- OUTSIDE RECORDS SUMMARY | 2024-06-25 22:05 | XMS_ITS | Encounter Summary ---
Author Organization [facility] Address [address] [place] [address] Phone Care Team Providers Care Lorry Weigher Name Role Phone Julio César Briseno MD Primary Care Provider [phone] Eren Cr MD Unavailable [phone] Yohana Bowen MD Unavailable Alejo Mi MD Unavailable [phone] Encounter Details Date Type Department Care Team (Late st Contact Info) Description 05/13/2024 Orders Only [facility] On[facility] [address] [place] [address] Eren Cr MD [address] [place] [address] Social History Tobacco Use Types Packs/Day Years [...] pharmacy Never 11/07/2022 AUDIT-C Answer Date Recorded Q1: How often do you have a drink containing alc ohol? Monthly or less 11/21/2022 Q2: How many drinks containi ng alcohol do you have on a typical day when you are drinking? 1 or 2 11/21/2022 Q3: How often do you have si x or more drinks on one occasion? 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 Gender Identity Not on file Sexual Orientation Straight 02/19/2021 9: 29 AM CDT Occupation Industry Job Start Date Job End Date retired Not on file Not on file Not on file documented as of this encounter Plan of Treatment Not on file documented as of this encounter Visit Diagnoses Not on filedocumented in this encounter Care Teams Lorry Weigher Relationship Specialty Start Date End Date Julio César Briseno MD PCP - General 10/01/16 Eren Cr MD Referring Physician Medical Oncology 11/25/18 Yohana Bowen MD Radiation Oncologist Radiation Oncology 11/25/18 Alejo Mi MD [address] [place] [address] Referring Physician Nephrology 03/07/23 documented as of this encounter
--- OUTSIDE RECORDS SUMMARY | 2024-06-25 22:05 | XMS_ITS | Encounter Summary ---
Author Organization [facility] Address [address] [place] [address] Phone Care Team Providers Care Measurement Specialist Name Role Phone Julio César Briseno MD Primary Care Provider [phone] Eren Cr MD Unavailable [phone] Yohana Bowen MD Unavailable Alejo Mi MD Unavailable [phone] Reason for Visit * Consultation (Routine) - Authorized Specialty Diagnoses / Procedures Referred By Contellen t Referred To Contact Oncology Diagnoses Neuroendocrine carcinoma (HCC) Eren Cr MD [address] [facility] [address] [place] [address] Phone: tel: fax: Eren Cr MD [address] [facility] [address] [place] [address] Phone: tel: fax: Referral ID Status Reason Start Date Expiration Date Visits Requested Visits Authorized [id number] Authorized Specialty Services Required 04/14/2024 05/14/2025 99 [phone] Encounter Details Date Type Department Care Team (Late st Contact Info) Description 04/14/2024 10:45 AM CDT Office Visit [facility] Oncology [address] [place] [address] Eren Cr MD [address] [facility] [address] [place] [address] Neuroendocrine carcinoma (HCC) (Primary Dx); Neuro-endocrine carcinoma (HCC); 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); Neuroendocrine carcinoma (CMS/HCC) (HCC) Social History Tobacco Use Types Packs/Day [...] on file 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 Gender Identity Not on file Sexual Orientation Straight 02/19/2021 9: 29 AM CDT Occupation Industry Job Start Date Job End Date retired Not on file Not on file Not on file documented as of this encounter Last Filed Vital Signs Vital Sign Reading Time Taken Comments Blood Pressure 135/78 04/14/2024 11:06 AM CDT Pulse 67 04/14/2024 11:06 AM CDT Temperature 36.6 ??C (97.8 ??F) 04/14/2024 11:06 AM C DT Respiratory Rate 18 04/14/2024 11:06 AM CDT Oxygen Saturation 98% 04/14/2024 11:06 AM CDT Inhaled Oxygen Concentration - - Weight 75.3 kg (166 lb) 04/14/2024 11:06 AM CDT Height - - Body Mass Index 29.41 01/24/2024 2:43 PM CDT documented in this encounter Progress Notes * Eren Cr MD - 04/14/2024 10:45 AM CDT Images from the original note were not included. MEDICAL ONCOLOGY OUTPATIENT ROV NOTE La Chung : 1950 DATE OF VISIT: 04/14/24 Oncology History Overview Note DIAGNOSIS: well differentiated [...] time, she also underwent right colectomy in [facility] [place] by Dr. Greyson Reeves. [...] 03/17/2024 Cycle 34 - 04/14/2024 Cycle 35 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) Neuroendocrine tumor 01/06/2018 Initial Diagnosis Neuroendocrine tumor INTERVAL HISTORY: La Chung is a 73 y.o. 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 Creatinine today 1.46 Today, she is here with her and notes: - no bleeding - no constipation, diarrhea - grade 1 tiredness - no fevers, chills - no SOB, cough Current Outpatient Medications Medication Instructions ??? 0.9 % sodium chloride ([facility] sodium chloride 0.9%) injection 10 mL, Weekly ??? 0.9 % sodium chloride (sodium chloride 0.9%) 0.9% infusion ??? amLODIPine (NORVASC) 5 mg tablet ??? amoxicillin 500 mg capsule TAKE 4 CAPSULES BY MOUTH 1 HOUR BEFORE APPOINTMENT ??? ascorbic acid, vitamin C, 500 mg capsule 1 tablet, Daily (early AM) ??? cholecalciferol (VITAMIN D-3) 1,000 Units, oral, Daily ??? clotrimazole-betamethasone (LOTRISONE) cream Apply 1 Application topically daily as needed (rash) ??? coenzyme [id number] 100-5 mg-unit capsule 1 tablet, Daily (early AM) ??? denosumab (Xgeva) 120 mg/1.7 mL (70 mg/mL) injection Inject 1.7 mL (120 mg total) under the skin every 28 (twenty-eight) days ??? diphenoxylate-atropine (LOMOTIL) 2.5-0.025 mg per tablet 1 tablet, oral, 4 times daily PRN ??? DULoxetine DR (CYMBALTA) 60 mg ??? ergocalciferol (VITAMIN D) 50,000 Units, oral, Weekly ??? fluticasone propionate (FLONASE) 50 mcg/actuation nasal spray Administer 2 sprays into each nostril daily as needed for rhinitis or allergies ??? heparin 100 unit/mL solution 5 mL, Weekly ??? [facility] cabozantinib/placebo (/[id number]) 20 mg, oral, Nightly, Take on an empty stomach (no food for 2 hours before and 1 hour after each dose). Avoid [place]'s Wort, grapefruit products and [facility] oranges while on treatment. placed on hold 09/26/22 for covid ??? levothyroxine (SYNTHROID) 100 mcg, oral, Daily (early AM) ??? lidocaine-prilocaine (lidocaine-prilocaine) cream topical, As needed, Apply a generous amount topically to port site 1 hour prior to lab/treatment, do not rub in, and cover with non absorbant dressing ??? loperamide HCl (IMODIUM A-D ORAL) 1 tablet, oral, Daily PRN, Patient takes 6-8 tablets a day. ??? LORazepam (ATIVAN) 0.5 mg tablet Take 1 tablet 1 hour prior to MRI exam, may repeat dose if needed 15 minutes prior to MRI ??? losartan (COZAAR) 25 mg tablet Take 1 tablet every day by oral route. ??? montelukast (SINGULAIR) 10 mg, oral, As needed ??? octreotide (SANDOSTATIN) 100 mcg, subcutaneous, Every 30 days, Last dose 11/15/22 ??? olmesartan-hydrochlorothiazide (BENICAR HCT) 20-12.5 mg per tablet 1 tablet, Every morning ??? ondansetron (ZOFRAN) 8 mg tablet TAKE 1 TABLET EVERY 8 HOURS NEEDED FOR NAUSEA OR VOMITING ??? ostomy supplies misc Patient has colostomy and needs Cavilon 3M skin barrier film to manage. ??? prochlorperazine (COMPAZINE) 10 mg, oral, Every 6 hours PRN ??? simvastatin (ZOCOR) 20 mg, oral, Nightly ??? sodium chloride 0.9 % solution 1,000 mL, Weekly ??? triamcinolone (KENALOG) 0.1 % ointment Apply to itchy rash on hands twice daily until improved Review of Systems Constitutional: Positive for malaise/fatigue. Negative for fever. HENT: Negative for nosebleeds and sore throat. Eyes: Negative. Respiratory: Negative. Cardiovascular: Negative. Gastrointestinal: Negative. Genitourinary: Negative. Musculoskeletal: Negative. Skin: Negative. Negative for itching and rash. Neurological: Negative. Endo/Heme/Allergies: Negative. Psychiatric/Behavioral: Negative. Objective ECOG PS: 1 VITALS: BP 135/78 (BP Location: Left arm) Pulse 67 Temp 36.6 ??C (97.8 ??F) (Oral) Resp 18 Wt 75.3 kg (166 lb) SpO2 98% BMI 29.41 kg/m?? Physical Exam Vitals reviewed. Constitutional: Appearance: Normal appearance. HENT: Head: Normocephalic and atraumatic. Nose: Nose normal. Eyes: General: No scleral icterus. Conjunctiva/sclera: Conjunctivae normal. Cardiovascular: Rate and Rhythm: Normal rate. Pulses: Normal pulses. Heart sounds: Normal heart sounds. Pulmonary: Effort: Pulmonary effort is normal. Breath sounds: Normal breath sounds. No wheezing or rales. Abdominal: General: Abdomen is flat. Bowel sounds are normal. Palpations: Abdomen is soft. Musculoskeletal: General: Normal range of motion. Cervical back: Normal range of motion. Lymphadenopathy: Cervical: No cervical adenopathy. Skin: General: Skin is warm and dry. Neurological: General: No focal deficit present. Mental Status: She is alert. Psychiatric: Mood and Affect: Mood normal. Behavior: Behavior normal. Thought Content: Thought content normal. LABORATORY: I personally reviewed all laboratories and discussed with patient during office visit, selected values included below. Hematology Lab History Latest Ref Rng & Units 01/21/2024 11:44 02/18/2024 09:45 03/17/2024 11:16 04/14/2024 10:35 Labs - Hematology WBC 3.8 - 9.9 K/cumm 5.0 5.0 4.2 6.8 Total Hb, POC 11.9 - 15.5 g/dL 12.8 10.8 10.9 10.8 Hct 35.6 - 45.5 % 39.3 33.4 33.6 33.5 Plt 150 - 400 K/cumm 118 124 102 117 Neutrophil abs 1.5 - 6.5 K/cumm 1.5 - 6.5 K/cumm 2.8 2.2 2.2 2.7 2.7 Lymphocytes, abs 0.8 - 3.3 K/cumm 0.8 - 3.3 K/cumm 1.4 2.2 1.3 2.7 2.7 Chem/LFT Lab History Latest Ref Rng & Units 01/24/2024 14:16 02/18/2024 09:45 03/17/2024 11:16 04/14/2024 10:35 Labs-Chem/LFT Sodium 135 - 145 mmol/L 137 140 137 140 Creatinine 0.60 - 1.10 mg/dL 1.49 1.17 1.34 1.46 Bilirubin, total 0.1 - 1.2 mg/dL 0.4 0.5 0.4 AST 10 - 45 Units/L 35 27 32 ALT 7 - 45 Units/L 20 16 18 Alk phos 40 - 130 Units/L 54 55 57 CrCl- Actual Body Weight (Cockcroft-Gault) 38.5 49.9 42.7 39.6 Tumor Marker History Latest Ref Rng & Units 12/24/2023 10:20 01/21/2024 11:44 02/18/2024 09:35 03/17/2024 11:16 Tumor Markers Chromogranin A <93 ng/mL 2819 3301 3200 2992 Tumor markers pending today. RADIOGRAPHIC/DIAGNOSTIC REVIEW: CT chest abdomen pelvis with contrast 02/12/2024 (Stable disease per RECIST 1.1) 1. Stable hepatic, omental, retroperitoneal gallito, and serosal metastases. 2. Stable 7 mm medial right lower lobe pulmonary nodule. CT chest abdomen pelvis with contrast 11/13/2023 (Stable disease per RECIST 1.1) Subcentimeter nodule or lymph node within the right medial lower lobe, unchanged from the most recent prior examination but slightly increased in size compared to 12/13/2022, potentially representinga site of metastatic disease. Stable hepatic metastases, peritoneal and omental deposits, and retroperitoneal lymphadenopathy CT chest abdomen pelvis with contrast 08/16/2023 (Stable Disease per RECIST 1.1) 1. Largely stable hepatic, peritoneal, and omental metastases with the exception of one hepatic segment 4A/8 lesion which appears minimally increased in size compared to prior examination. 2. Stable mildly prominent right subclavicular and retroperitoneal lymph nodes CT chest abdomen pelvis with contrast 05/24/2023 (Stable Disease per RECIST 1.1) 1. No significant change in hepatic and peritoneal metastases. 2. Stable right supraclavicular lymph node. 3. No evidence of disease progression. CT chest abdomen pelvis with contrast 03/01/2023 (Stable Disease per RECIST 1.1) 1. Stable hepatic metastases and peritoneal deposits. 2. Slightly increased size of indeterminate right supraclavicular lymph nodes. Recommend attention on followup. CT chest abdomen pelvis with contrast 12/13/2022 (Stable Disease per RECIST 1.1) 1. Stable hepatic lesions and peritoneal deposits. 2. Subtle upper lung predominant subcentimeter nodularity, which could represent bronchiolitis. Attention on follow-up study. CT chest abdomen pelvis with contrast 09/05/2022 Stable hepatic lesions and peritoneal implants compatible with the patient's known neuroendocrine malignancy. No new findings of metastatic disease. CT chest abdomen pelvis with contrast 06/28/2022 No metastatic disease in the chest. Stable hepatic and peritoneal metastases. No new abdominal metastases. CT abdomen/pelvis 04/09/2022: Stable metastatic disease in the abdomen and pelvis as evidenced by hepatic metastases, hepatic serosal deposits, vaginal cuff metastases, numerous soft tissue nodules studding the sigmoid colon and loops of small bowel, peritoneal nodules and retroperitoneal lymphadenopathy. Stable diffuse thickening of the sigmoid colon with multiple colonic diverticula, likely representing sequela of prior diverticular disease.Interval increased wall thickening and submucosal edema of the rectum with surrounding stranding of the perirectal fat, consistent with proctitis. No findings of bowel obstruction. CT chest/abdomen/pelvis 03/21/2022: No findings to suggest thoracic metastatic disease. Stable abdominal metastatic disease as evidenced by stable hepatic metastases, hepatic serosal deposits, vaginal cuff metastasis, numerous nodules studding the sigmoid colon and loops of small bowel, peritoneal nodules, and retroperitoneal adenopathy. It is conceivable that some of the areas of enhancing nodularity and architectural distortion associated with the sigmoid colon could represent sequela of diverticular disease given the background of diverticulosis. Stable to slightly improved sigmoid colon wall thickening favored to represent sequela of prior diverticular disease. CT chest/abdomen/pelvis 02/02/2022: Stable metastatic disease in the abdomen and pelvis since 10/13/2021, characterized by multifocal hepatic metastases, multiple peritoneal deposits, retroperitoneal adenopathy, and vaginal cuff nodule. Small soft tissue projection of a small bowel loop in the left lower quadrant is not well seen previously and is favored to represent a small bowel diverticulum given presence of additional small and large bowel diverticular disease, rather than a new peritoneal deposit. Attention on follow-up imaging is advised. No evidence of metastatic disease within the chest. Progressive focal circumferential thickening of the distal sigmoid colon may relate to incomplete distension versus neoplasm. Correlation with colonoscopy is recommended. CT chest/abdomen/pelvis 10/13/2021: Decreased size and enhancement of the bilobar hepatic metastatic disease reflecting response to treatment. Stable peritoneal/mesenteric disease, vaginal cuff depositand right periaortic retroperitoneal lymphadenopathy. No evidence of metastatic disease to the chest. Unchanged urethral diverticulum with stones. CT chest/abdomen/pelvis 06/22/2021: Stable hepatic, peritoneal/mesenteric, retroperitoneal and vaginal cuff metastases. Right supraclavicular and upper paratracheal lymph node, although prominent, remains suspicious for metastases. Persistent linear enhancing soft tissue along the hepatic dome is favored to represent perihepatic serosal metastases likely from prior capsular breach of segment 7 subcapsular metastases. MR abdomen/pelvis 06/15/2021: Majority of liver lesions have increased in size, and the vaginal cufflesion is likely also increased in size, indicating disease progression. ASSESSMENT AND PLAN: Ms. La Chung is a 73 y.o. 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 1. Metastatic neuroendocrine tumor with metastases - She continues on Octreotide LAR 30 mg; due for injection today. - She also continues on cabozantinib per CABINET trial with dose 20mg daily. - We reviewed her labs notable for elevated creatinine but otherwise ok - will proceed with treatment today - nahomi GAO in to see patientfor toxicity assessment 2. Bone metastases - No suspicious lesions on last CT. - On xgeva, hold xgeva 3. Diarrhea - Has chronic diarrhea since diagnosis. -improved 4. Hypothyroidism with TSH elevated - Managed per endocrinology. 5. Vitamin D insufficiency/Deficiency - followed by nephrology 6. Renal function - Creatinine 1.46 - follows with Nephrology 7. Right TM perforation - Follow up with ENT, s/p surgery. 8. Hyperparathyroidism - Calcium 9.5 today - May be secondary to CKD, denosumab use. - On vit d supplementation. - nephrology following. 9. Eye disorder, grade 1, watery eyes - Not a reported side effect of cabozantinib, appears unrelated at this time. - F/u Ophthalmology as needed 10. HTN - per her PCP She will call us in the interim for any questions, concerns, or worsening symptoms. She is agreeable with this plan of care. Eren Cr MD Division of Medical Oncology [facility] Cancer [facility] [employer] My total encounter time on 04/14/2024 was 25 minutes which was spent in the activities documented in the note. This includes time spent prior to the visit and after the visit in direct care of the patient. This time does not include time spent in any separately reportable services. Jump to the Problem List Disease Status Documentation for mCODE Neoplastic Disease Neuroendocrine carcinoma (CMS/HCC) (HCC) Cancer Disease Assessment for mCODE Disease status: stable Reason for disease status: imaging, physical exam, symptoms Date of cancer disease status assessment: 02/18/24 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) Cancer Disease Assessment for mCODE Disease status: stable Reason for disease status: symptoms, physical exam, lab results, imaging Date of cancer disease status assessment: 11/26/23 Neuro-endocrine carcinoma (HCC) Cancer Disease Assessment for mCODE Disease status: stable Reason for disease status: symptoms, physical exam, lab results, imaging Date of cancer disease status assessment: 05/28/23 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) Cancer Disease Assessment for mCODE Disease status: stable Reason for disease status: symptoms, physical exam, lab results Date of cancer disease status assessment: 06/27/23 H/O actinic keratosis Neuroendocrine tumor Cancer Disease Assessment for mCODE Disease status: stable Reason for disease status: imaging Date of cancer disease status assessment: 07/12/22 Cancer Treatment Plan Change for ICARE data: No change in treatment plan documented in this encounter Plan of Treatment Not on file documented as of this encounter Results * (ABNORMAL) Chromogranin A (05/12/2024 10:26 AM FLORIST MANAGER) Chromogranin A 4282(H) <93 ng/mL [place] [facility] Comment: Impaired renal or hepatic function or treatment with proton pump inhibitors may result in artifactual elevations of Chromogranin A. ADDITIONAL INFORMATION The testing method is a homogeneous time-resolved immunofluorescent assay manufactured by [employer] and performed on the [employer] Comp[employer] Plus. ? Values obtained with different [...] examination and other findings. Test Performed by: [facility] [address] [place] [address] Hot Dip Plating Supervisor: Carley Tony Ph.D.; CLIA# [id number] Blood 05/12/2024 10:2 6 AM FLORIST MANAGER 05/12/2024 11:41 AM FLORIST MANAGER Eren Cr MD LAB BLOOD ORDERABLES [place] [address] [place] ref [facility] * (ABNORMAL) Vitamin D 25 hydroxy (05/12/2024 10:26 AM FLORIST MANAGER) Pathologist [facility] Vitamin D 25-OH 18(L) 30 - 80 ng/mL Blood 05/12/2024 10:2 6 AM FLORIST MANAGER 05/12/2024 11:56 AM FLORIST MANAGER Eren Cr MD LAB BLOOD ORDERABLES Final Re sult Performing Organization Address [facility] Co de Phone Number [facility] [employer] [place] [address] * Phosphorus (05/12/2024 10:26 AM FLORIST MANAGER) Pathologist [facility] Phosphorus, pl 2.9 2.3 - 4.5 mg/dL Comment:Testing performed by : [facility], [address] [place] [id number] Blood 05/12/2024 10:2 6 AM FLORIST MANAGER 05/12/2024 10:27 AM FLORIST MANAGER Eren Cr MD LAB BLOOD ORDERABLES Final Re sult [facility] [employer] [place] [address] * (ABNORMAL) Lipid panel (05/12/2024 10:26 AM FLORIST MANAGER) [facility] Cholesterol 128 30 - 199 mg/dL Comment: [...] on 2018. LDL, calculated 67 <=129 mg/dL [facility] Comment: Interpretive Data Ages < or [...] on 2024. Non-HDL Cholesterol 91 mg/dL [facility] Comment: Interpretive Data Ages < or [...] last revised on 2018. Chol/HDL ratio 3 [facility] Blood 05/12/2024 10:2 6 AM FLORIST MANAGER 05/12/2024 11:56 AM FLORIST MANAGER us Eren Cr MD LAB BLOOD ORDERABLES Final Re sult Performing Organization Address [facility] de Phone Number [facility] Department [place] [address] * Magnesium (05/12/2024 10:26 AM FLORIST MANAGER) Magnesium 1.5 1.4 - 2.5 mg/dL Comment:Testing performed by : [address] [address] Blood 05/12/2024 10:2 6 AM FLORIST MANAGER 05/12/2024 10:27 AM FLORIST MANAGER us Eren Cr MD LAB BLOOD ORDERABLES Final Re sult Performing Organization Address [facility] Co de Phone Number [facility] Department [place] [address] * (ABNORMAL) Comprehensive metabolic panel (05/12/2024 10:26 AM FLORIST MANAGER) Sodium 139 135 - 145 mmol/L Comment:Testing performed by : [address] [address] Potassium, pl 4.3 3.3 - 4.9 mmol/L [facility] Chloride 109 97 - 110 mmol/L [facility] CO2 22 22 - 32 mmol/L [facility] Anion gap 8 2 - 15 mmol/L [facility] BUN 20 6 - 25 mg/dL [facility] Creatinine 1.44(H) 0.60 - 1.10 mg/dL [facility] Glucose 89 70 - 199 mg/dL [facility] Comment: Interpretive Data Fasting glucose >/= [...] 2022. Calcium 10.1 8.5 - 10.3 mg/dL [facility] Bilirubin, total 0.4 0.1 - 1.2 mg/dL [facility] Protein, pl 6.1(L) 6.5 - 8.5 g/dL [facility] Albumin 4.0 3.5 - 5.0 g/dL [facility] Alk phos 66 40 - 130 Units/L [facility] ALT 21 7 - 45 Units/L [facility] AST 38 10 - 45 Units/L [facility] Blood 05/12/2024 10:2 6 AM FLORIST MANAGER 05/12/2024 10:27 AM FLORIST MANAGER Eren Cr MD LAB BLOOD ORDERABLES Final Re sult [facility] Department of Laboratories [place], [place] [id number] * (ABNORMAL) CBC with auto differential (05/12/2024 10:26 AM FLORIST MANAGER) [facility] WBC 7.9 3.8 - 9.9 K/cumm Comment:Testing performed by : [facility], [address] [place] [id number] Hgb 11.3(L) 11.9 - 15.5 g/dL [facility] Comment:Testing performed by : [facility], [address] [place] [address] Hct 35.5(L) 35.6 - 45.5 % [facility] Comment:Testing performed by : [facility], [address] [place] [id number] Plt 129(L) 150 - 400 K/cumm [facility] Comment:Testing performed by : [facility], [address] [place] [id number] MPV 9.0(L) 9.1 - 12.3 fL [facility] RBC 3.57(L) 3.90 - 5.20 M/cumm [facility] MCV 99.4(H) 81.3 - 96.4 fL [facility] MCH 31.7 27.1 - 33.3 pg [facility] MCHC 31.8(L) 32.3 - 35.7 g/dL [facility] RDW CV 15.7(H) 11.1 - 14.9 % [facility] RDW SD 57.3(H) 35.7 - 48.1 fL [facility] NRBC abs 0.00 0.00 - 0.01 K/cumm [facility] Blood 05/12/2024 10:2 6 AM FLORIST MANAGER 05/12/2024 10:27 AM FLORIST MANAGER Eren Cr MD LAB BLOOD ORDERABLES Final Re sult Performing Organization Address City/State/[facility] Co de Phone Number [facility] Department [place] [address] documented in this encounter Visit Diagnoses Diagnosis Neuroendocrine carcinoma (CMS/HCC) (HCC)- Primary Other malignant neoplasm of unspecified site Neuroendocrine carcinoma (HCC) Other malignant neoplasm of unspecified site Neuro-endocrine carcinoma (HCC) Other malignant neoplasm of unspecified site 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) documented in this encounter Orders Outpatient Referral Count Last Ordered Date Fir st Ordered Date AMB REFERRAL TO ONCOLOGY 1 04/14/2024 Appointment Requests Count Last Ordered Date Fi rst Ordered Date ONCBCN CLINIC APPOINTMENT REQUEST 2 024 04/14/2024 ONCBCN INJECTION APPOINTMENT REQUEST 1 11/2023 ONCBCN LAB APPOINTMENT 1 05/12/2024 ONCBCN TAKE HOME STUDY DRUG APPT 1 05/12/20 24 documented in this encounter Care Teams Measurement Specialist Relationship Specialty Start Date End Date Julio César Briseno MD PCP - General 10/01/16 Eren Cr MD Referring Physician Medical Oncology 11/25/18 Yohana Bowen MD Radiation Oncologist Radiation Oncology 11/25/18 Alejo Mi MD [address] [address] Referring Physician Nephrology 03/07/23 documented as of this encounter
--- OUTSIDE RECORDS SUMMARY | 2024-06-25 22:05 | XMS_ITS | Encounter Summary ---
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 Meraz from Dr. Cr. Email sent to Dr. Meraz for case review- awaiting response. CHUTE LINE TIER documented in this encounter Plan of Treatment Not on file documented as of this encounter Visit Diagnoses Not on filedocumented in this encounter Care Teams Night Warehouse Manager Relationship Specialty Start Date End Date Julio César Briseno MD PCP - General 10/01/16 Eren Cr MD Referring Physician Medical Oncology 11/25/18 Yohana Bowen MD Radiation Oncologist Radiation Oncology 11/25/18 Alejo Mi MD [address] [place] [address] Referring Physician Nephrology 03/07/23 documented as of this encounter
--- OUTSIDE RECORDS SUMMARY | 2024-06-25 22:05 | XMS_ITS | Encounter Summary ---
Author Organization [facility] Healthcare Address [address] [place] [address] Care Team Providers Care Labor Relations Officer Name Role Phone Julio César Briseno MD Primary Care Provider [phone] Eren Cr MD Unavailable [phone] Yohana Bowen MD Unavailable Alejo Mi MD Unavailable [phone] Encounter Details Date Type Department Care Team (Late st Contact Info) Description 06/11/2024 Telephone [facility] Radiology 1 [place] [address] Dorota Rogers, RN Social History Tobacco Use [...] you are drinking? 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[employer] Gender Identity Not on file Sexual Orientation Straight 02/19/2021 9: 29 AM CDT Occupation Industry Job Start Date Job End Date retired Not on file Not on file Not on file documented as of this encounter Miscellaneous Notes * Telephone Encounter - Dorota Rogers RN - 06/11/2024 3:10 PM CST IR GENERAL PRE-PROCEDURE SCREENING Risk Level of Procedure: high Procedure: CT-guided liver biopsy with sedation then TACE with sedation/SDA Date of Procedure if scheduled: 06/19/24 Arrival Time: 0600 Location of procedure:[facility] 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 Mikey Meraz Referring Provider: Dr. Eren Cr Referring Nurse Coordinator: Sola Heredia Insurance carrier verified? Yes Appt info letter sent: Yes- via [employer] ALLERGIES: Allergies Allergen Reactions Morphine Blisters and Rash Ezetimibe-Simvastatin Muscle pain, Other (See comments) and Unknown Muscle weakness Ramipril Cough Infection Flag: Does the patient have any of the following medical conditions? Sedation: Previous problems with anesthesia or sedation? Yes nausea/vomiting Cardiovascular/Respiratory: None Lung: None Renal/Liver/GI: Kidney disease, metastatic NET Bleeding/Clotting: Bleed or bruise easily Most recent coag results: 05/12/24: PLT= 129 Date of redraw (if applicable): Morning of procedure Medications: * * * For blood thinners/antiplatelet agents, REVIEW MED REC AND LIST THEM APPROPRIATE * * * Chemotherapy within the last 3 months and patient denies taking anticoagulants, diabetic medications, and diuretics. Patient & Procedure Risk Assessment Proceed with scheduling Per marli Ruiz to schedule CT-guided liver biopsy with sedation and then TACE with sedation/SDA. Patient will be NPO after midnight and will have a public transit bus driver. She verbalized understanding of instructions and will call [facility] if needed. She does have NC's direct office number. [employer] documented in this encounter Plan of Treatment Not on file documented as of this encounter Visit Diagnoses Not on filedocumented in this encounter Care Teams Labor Relations Officer Relationship Specialty Start Date End Date Julio César Briseno MD PCP - General 10/01/16 Eren Cr MD Referring Physician Medical Oncology 11/25/18 Yohana Bowen MD Radiation Oncologist Radiation Oncology 11/25/18 Alejo Mi MD [address] [address] Referring Physician Nephrology 03/07/23 documented as of this encounter
--- OUTSIDE RECORDS SUMMARY | 2024-06-25 22:05 | XMS_ITS | Encounter Summary ---
Author Organization [facility] Address [address] [place] [address] Phone Care Team Providers Care High School Social Studies Tutor Name Role Phone Julio César Briseno MD Primary Care Provider [phone] Eren Cr MD Unavailable [phone] Yohana Bowen MD Unavailable Alejo Mi MD Unavailable [phone] Encounter Details Date Type Department Care Team (Late st Contact Info) Description 05/08/2024 Orders Only [facility] Oncology [address] [place] [address] Eren Cr MD [address] [place] [address] Research study patient (Primary Dx) Social History Tobacco Use Types [...] on file 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 Gender Identity Not on file Sexual Orientation Straight 02/19/2021 9: 29 AM CDT Occupation Industry Job Start Date Job End Date retired Not on file Not on file Not on file documented as of this encounter Plan of Treatment Not on file documented as of this encounter Visit Diagnoses Diagnosis Research study patient- Primary documented in this encounter Orders Lab Orders Without Results Count Last Ordered D ate First Ordered Date ONCBCN STUDY LAB 1 1 05/12/2024 documented in this encounter Care Teams High School Social Studies Tutor Relationship Specialty Start Date End Date Julio César Briseno MD PCP - General 10/01/16 Eren Cr MD Referring Physician Medical Oncology 11/25/18 Yohana Bowen MD Radiation Oncologist Radiation Oncology 11/25/18 Alejo Mi MD [address] [address] Referring Physician Nephrology 03/07/23 documented as of this encounter
--- OUTSIDE RECORDS SUMMARY | 2024-06-25 22:05 | XMS_ITS | Encounter Summary ---
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) Procedures [place] OCTREOTIDE INJECTION, DEPOT Octreotide 28 Day Cycles - Carcinoid Eren Cr MD [address] [place] [address] Phone: tel: fax: [address] [address] Phone: tel: fax: Referral ID Status Reason Start Date Expiration Date V isits Requested Visits Authorized [id number] Authorized 11/28/2017 02/05/2025 1 150 Encounter Details Date Type Department Care Team (Late st Contact Info) Description 04/14/2024 11:45 AM CDT Infusion [facility] [address] [place] [phone] 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 female who presents for the following injection: Octreotide Nursing Assessment Nursing Assessment LOC: Alert Fatigue: Occassional Any falls since your last visit?: No Orientation: Oriented x4 Behavior: Calm Speech: Clear Language: No aphasia Vision: At baseline Peripheral Neuropathy: No Oral Mucosa Grade: Normal (0) Pt states has potential to be ?: No Shortness of Breath?: No Appetite: Fair Have You Recently Lost Weight Without Trying?: No Have you been eating poorly because of a decreased appetite?: No Malnutrition Screening Tool (MST) Score: 0 Nausea/Vomiting: No Diarrhea: No Constipation: No Skin Condition/Temp: Warm, Dry Swelling: No Encounter Vitals BP: 135/78 (04/14/2024 11:06 AM) Pulse: 67 (04/14/2024 11:06 AM) Resp: 18 (04/14/2024 11:06 AM) Temp: 36.6 ??C (97.8 ??F) (04/14/2024 11:06 AM) Temp src: Oral (04/14/2024 11:06 AM) SpO2: 98 % (04/14/2024 11:06 AM) Weight: 75.3 kg (166 lb) (04/14/2024 11:06 AM) Patient: met treatment parameters La Chung tolerated injection well Discharge Plan Discharge instructions given to patient. 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 For IM intragluteal administration only- alternate gluteal sites. 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) Given 04/14/2024 12:11 PM CDT 30 mg Left Dorsogluteal/Butt ock documented in this encounter Orders Medications Ordered That Brett ht Not Have Been Administered Count Last Ordered Date First Ordered Date octreotide LAR (SandoSTATIN LAR) extended release intramuscular injection 30 mg 1 04/14/2024 Nursing Count Last Ordered Date First Orde red Date ONCBCN NURSING COMMUNICATION [id number] 1 04/14 Appointment Requests Count Last Ordered Date Fi rst Ordered Date ONCBCN INJECTION APPOINTMENT REQUEST 1 02/2024 documented in this encounter Care Teams Napping Machine Operator Relationship Specialty Start Date End Date Julio César Briseno MD PCP - General 10/01/16 Eren Cr MD Referring Physician Medical Oncology 11/25/18 Yohana Bowen MD Radiation Oncologist Radiation Oncology 11/25/18 Alejo Mi MD [address] [place] [address] Referring Physician Nephrology 03/07/23 documented as of this encounter
--- OUTSIDE RECORDS SUMMARY | 2024-06-25 22:05 | XMS_ITS | Encounter Summary ---
Author Organization [facility] Address [address] [place] [address] Phone Care Team Providers Care Director Broadcast Name Role Phone Julio César Briseno MD Primary Care Provider Eren Cr MD Unavailable [phone] Yohana Bowen MD Unavailable Alejo Mi MD Unavailable [phone] Reason for Visit * Reason Comments Annual Exam Encounter Details Date Type Department Care Team (Late st Contact Info) Description 05/29/2024 10:45 AM ROPE CUTTER Office Visit [facility] Dermatology [address] [facility] [address] [place] [address] Po Newberry MD PhD [address] [place] [id number] Actinic keratosis (Primary Dx); Purpura (HCC); Family history of melanoma; Seborrheic keratosis; Multiple benign nevi; Milia Social History Tobacco Use Types Packs/Day Years [...] on file Legal Sex Female 2:41 PM ROPE CUTTER Gender Identity Not on file Sexual Orientation Straight 02/19/2021 9: 29 AM CDT Occupation Industry Job Start Date Job End Date retired Not on file Not on file Not on file documented as of this encounter Progress Notes * Po Newberry MD PhD - 05/29/2024 10:45 AM CST La Chung [id number] 05/29/24 CHIEF COMPLAINT: full body skin exam HISTORY OF PRESENT ILLNESS La Chung is a 73 y.o. female returning pt, no PMH of skin cancer, has family hx of melanoma, here today for full body skin exam. Accompanied by daughter. Pt states today, Concerns over red spots on her arms. These spots would occasionally appear during the night and when waking up in the morning. Notes bruising elbows easily, recalls hitting elbow at sink while brushing teeth. Receives shots on back monthly, they rotate from left and right back. White spot on nose, would pick at. No other associated symptoms, exacerbating or alleviating factors. No other painful, bleeding or pruritic areas. No other new, changing or otherwise suspicious lesions. HISTORY Medications and allergies reviewed in chart Past medical, family and social history reviewed and noncontributory unless noted in HPI. Personal hx: None Family hx: Daughter w/ melanoma Sunscreen usage: Daily Social Hx: Daughter who had melanoma is reportedly doing well. Pt's family likes to go duck hunting(excluding Pt and daughter). Past Medical History: Diagnosis Date Arthritis Family [...] 09/2019 immunotherapy Status post radiation therapy 09/2019 REVIEW OF SYSTEMS Denies pruritus, easy bruising. Also denies fever, chills, night sweats, weight loss, weakness, lymphadenopathy. Denies any reason for immunocompromization - h/o cancer, chemotherapy, HIV, radiation therapy, bone-marrow transplant. PHYSICAL EXAM Gen and Cardio: Well-developed and well-nourished in no acute distress. Alert oriented and interacts appropriately. Normal conjunctiva. Normal skin sensation. No lower extremity edema. Derm: A full cutaneous exam was performed with close inspection and palpation where indicated and as allowed by the patient of the hair, scalp, face, lips, neck, chest, abdomen, back, right upper, left upper, right lower, left lower extremities, hands, feet, nails and digits. All skin examined was normal with exception of these notable exam findings: [place] scaly papules on face Reticulated brown/red macules scattered on bilateral arms Brown macules and papules with even borders and colors on the trunk and extremities Cr stuck on appearing papules scattered on trunk and extremities White cystic papule on nose ASSESSMENT AND PLAN Actinic keratosis: face Nature of condition reviewed including small risk of transformation into skin cancer Options of treatment reviewed prior to treatment including monitoring, cryotherapy/LN2, field therapy Number treated: 5 Patient elected for LN2 today to affected sites Procedure: LN2 x 7sec to all sites. SER including blistering, pain, recurrence, and scarring. Blister care reviewed Recommended application of thick, bland emollient such as Vaseline to treated areas Actinic Purpura: bilateral arms Discussed nature of condition. Benign. Previously recommended OTC Arnica (with Pineapple extract) to AA bilateral arms. Previously discussed focus on preventative and protective methods againt injury to sensitive areas Multiple benign nevi: trunk and extremities Pt counseled on benign nature of condition Skin cancer edu provided Photoprotection reviewed including sunscreen, hats and photoprotective clothing Sunscreen education provided: daily use encouraged with SPF 30+ with minerals, q2 hr reapplication when outside Continue with regular skin checks including the scalp Seborrheic keratoses: trunk and extremities Pt counseled on benign nature of condition Nature of condition reviewed Discussed that if site changes, grown, or becomes symptomatic patient should return to clinic for further evaluation Bagley angiomas: trunk and extremities Pt counseled on benign nature of condition Patient instructed to return if lesions grow or become symptomatic. Milia: nose Discussed nature of condition. Discussed removal via punch tool Family History of Melanoma - No concerning lesions on exam today - Photoprotection encouraged - Patient was instructed to seek care if concerning skin changes develop - The warning signs of skin cancer were reviewed with emphasis on evolving lesions - Recommended regular MD skin checks Return visit: 1 year Patient was instructed to return sooner should they develop any new, changing and/or worsening lesions, side effects of any recommended treatments, or as needed. SCRIBE ATTESTATION By signing my name, I, cynthia Alcantar, attest that this documentation has been prepared underthe direction and in the presence of Dr. Newberry 05/29/2024 10:39 AM ATTENDING ATTESTATION I personally performed the services described in this documentation, reviewed and edited the documentation which was dictated to the scribe in my presence, and it accurately records my words and actions. Electronically Signed: Po Newberry MD, PhD CUTTER documented in this encounter Plan of Treatment Not on file documented as of this encounter Visit Diagnoses Diagnosis Actinic keratosis- Primary Purpura (HCC) Other nonthrombocytopenic purpuras Family history of melanoma Family history of other specified malignant neoplasm Seborrheic keratosis Multiple benign nevi Milia Sebaceous cyst documented in this encounter Care Teams Director Broadcast Relationship Specialty Start Date End Date Julio César Briseno MD PCP - General 10/01/16 Eren Cr MD Referring Physician Medical Oncology 11/25/18 Yohana Bowen MD Radiation Oncologist Radiation Oncology 11/25/18 Alejo Mi MD [address] [place] [address] Referring Physician Nephrology 03/07/23 documented as of this encounter
--- OUTSIDE RECORDS SUMMARY | 2024-06-25 22:05 | XMS_ITS | Encounter Summary ---
Author Organization [facility] Address [address] [place] [address] Phone Care Team Providers Care Rotary Slicing Machine Operator Name Role Phone Julio César Briseno MD Primary Care Provider Eren Cr MD Unavailable [phone] Yohana Bowen MD Unavailable Alejo Mi MD Unavailable [phone] Encounter Details Date Type Department Care Team (Late st Contact Info) Description 06/09/2024 11:00 AM CONTROL SYSTEMS TECHNICIAN Office Visit [facility] Oncology [address] [facility] [address] [place] [address] Claude Browning MD [facility] [address] [place] [address] Neuroendocrine carcinoma (HCC) (Primary Dx); Malignant neoplasm [...] on file Legal Sex Female 2:41 PM CONTROL SYSTEMS TECHNICIAN Gender Identity Not on file Sexual Orientation Straight 02/19/2021 9: 29 AM CDT Occupation Industry Job Start Date Job End Date retired Not on file Not on file Not on file documented as of this encounter Last Filed Vital Signs Vital Sign Reading Time Taken Comments Blood Pressure 149/99 06/09/2024 10:47 AM CONTROL SYSTEMS TECHNICIAN Pulse 78 06/09/2024 10:47 AM CONTROL SYSTEMS TECHNICIAN Temperature 36.3 ??C (97.4 ??F) 06/09/2024 10:[address] Respiratory Rate 18 06/09/2024 10:47 AM CONTROL SYSTEMS TECHNICIAN Oxygen Saturation 100% 06/09/2024 10:47 AM CONTROL SYSTEMS TECHNICIAN Inhaled Oxygen Concentration - - Weight 78.5 kg (173 lb) 06/09/2024 10:47 AM CONTROL SYSTEMS TECHNICIAN Height 160 cm (5' 2.99 ) 06/09/2024 10:47 AM CONTROL SYSTEMS TECHNICIAN Body Mass Index 30.65 06/09/2024 10:47 AM CONTROL SYSTEMS TECHNICIAN documented in this encounter Plan of Treatment Not on file documented as of this encounter Visit Diagnoses Diagnosis Neuroendocrine carcinoma (HCC)- Primary Other malignant neoplasm of unspecified site 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) documented in this encounter Orders Appointment Requests Count Last Ordered Date Fi rst Ordered Date ONCBCN INJECTION APPOINTMENT REQUEST 1 09/2023 ONCBCN LAB APPOINTMENT 1 06/09/2024 documented in this encounter Care Teams Rotary Slicing Machine Operator Relationship Specialty Start Date End Date Julio César Briseno MD PCP - General 10/01/16 Eren Cr MD Referring Physician Medical Oncology 11/25/18 Yohana Bowen MD Radiation Oncologist Radiation Oncology 11/25/18 Alejo Mi MD [address] [place] [address] Referring Physician Nephrology 03/07/23 documented as of this encounter
--- OUTSIDE RECORDS SUMMARY | 2024-06-25 22:05 | XMS_ITS | Encounter Summary ---
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) Procedures [place] OCTREOTIDE INJECTION, DEPOT Octreotide 28 Day Cycles - Carcinoid Eren Cr MD [address] [facility] [address] [place] [address] Phone: tel: fax: [address] [address] Phone: tel: fax: Referral ID Status Reason Start Date Expiration Date V isits Requested Visits Authorized [id number] Authorized 11/28/2017 02/05/2025 1 150 Encounter Details Date Type Department Care Team (Latest Contact Info) Description 06/09/2024 1:15 PM CAREER DEVELOPMENT MANAGER Clinical Support [facility] - Lab Collection [address] [facility] [address] [place] [address] Neuroendocrine carcinoma (HCC); 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) Social [...] on file Legal Sex Female 2:41 PM CAREER DEVELOPMENT MANAGER Gender Identity Not on file Sexual Orientation Straight 02/19/2021 9: 29 AM CDT Occupation Industry Job Start Date Job End Date retired Not on file Not on file Not on file documented as of this encounter Plan of Treatment Not on file documented as of this encounter Procedures Procedure Name Priority Date/Time Associated Diagnosis Comments EGFR Routine 06/09/2024 1:27 PM CAREER DEVELOPMENT MANAGER Neuroendocrine carcinoma (HCC) CHROMOGRANIN A Routine 06/09/2024 1:27 PM CAREER DEVELOPMENT MANAGER 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) VITAMIN D 25 HYDROXY Routine 06/09/2024 1:27 PM CAREER DEVELOPMENT MANAGER 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) PHOSPHORUS Routine 06/09/2024 1:27 PM CAREER DEVELOPMENT MANAGER 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) LIPID PANEL Routine 06/09/2024 1:27 PM CAREER DEVELOPMENT MANAGER 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) COMPREHENSIVE METABOLIC PANEL Routine 06/09/2024 1:27 PM CAREER DEVELOPMENT MANAGER Neuroendocrine carcinoma (HCC) documented in this encounter Results * (ABNORMAL) eGFR (06/09/2024 1:27 PM CAREER DEVELOPMENT MANAGER) eGFR 30(L) >=60 mL/min/1. 73 m2 Comment: [...] last reviewed 2021. Blood 06/09/2024 1:27 PM CAREER DEVELOPMENT MANAGER 06/09/2024 1:40 PM CAREER DEVELOPMENT MANAGER us Claude Browning MD LAB BLOOD ORDERABLES Mel l Result [facility] Department [place] [address] * (ABNORMAL) Comprehensive metabolic panel (06/09/2024 1:27 PM CAREER DEVELOPMENT MANAGER) Sodium 140 135 - 145 mmol/L Potassium, pl 4.1 3.3 - 4.9 mmol/L [facility] Chloride 109 97 - 110 mmol/L [facility] CO2 24 22 - 32 mmol/L [facility] Anion gap 7 2 - 15 mmol/L [facility] BUN 20 6 - 25 mg/dL [facility] Creatinine 1.73(H) 0.60 - 1.10 mg/dL [facility] Glucose 90 70 - 199 mg/dL [facility] Comment: Interpretive Data Fasting glucose >/= 126 [...] 2022. Calcium 9.6 8.5 - 10.3 mg/dL [facility] Bilirubin, total 0.6 0.1 - 1.2 mg/dL [facility] Protein, pl 6.4(L) 6.5 - 8.5 g/dL [facility] Albumin 3.9 3.5 - 5.0 g/dL [facility] Alk phos 79 40 - 130 Units/L [facility] ALT 9 7 - 45 Units/L [facility] AST 28 10 - 45 Units/L [facility] Blood 06/09/2024 1:27 PM CAREER DEVELOPMENT MANAGER 06/09/2024 1:40 PM CAREER DEVELOPMENT MANAGER us Claude Browning MD LAB BLOOD ORDERABLES Mel l Result [facility] [place] [address] * (ABNORMAL) Lipid panel (06/09/2024 1:27 PM CAREER DEVELOPMENT MANAGER) [facility] Signature Cholesterol 135 30 - 199 mg/dL Comment: [...] revised on 2018. Triglycerides 160(H) <=149 mg/dL [facility] Comment: Interpretive Data [...] revised on 2018. HDL 39(L) >=40 mg/dL [facility] Comment: Interpretive Data Ages < or = [...] on 2018. LDL, calculated 68 <=129 mg/dL [facility] Comment: Interpretive Data Ages < or = [...] revised on 2024. Non-HDL Cholesterol 96 mg/dL [facility] Comment: Interpretive Data Ages < or = [...] last revised on 2018. Chol/HDL ratio 3 [facility] Blood 06/09/2024 1:27 PM CAREER DEVELOPMENT MANAGER 06/09/2024 1:40 PM CAREER DEVELOPMENT MANAGER Eren Cr MD LAB BLOOD ORDERABLES Final Re sult Performing Organization Address [facility] de Phone Number [facility] Department [place] [address] * Phosphorus (06/09/2024 1:27 PM CAREER DEVELOPMENT MANAGER) Phosphorus, pl 3.1 2.3 - 4.5 mg/dL Blood 06/09/2024 1:27 PM CAREER DEVELOPMENT MANAGER 06/09/2024 1:40 PM CAREER DEVELOPMENT MANAGER Eren Cr MD LAB BLOOD ORDERABLES Final Re sult Performing Organization Address [facility] de Phone Number [facility] Department [place] [address] * (ABNORMAL) Vitamin D 25 hydroxy (06/09/2024 1:27 PM CAREER DEVELOPMENT MANAGER) Vitamin D 25-OH 16(L) 30 - 80 ng/mL Blood 06/09/2024 1:27 PM CAREER DEVELOPMENT MANAGER 06/09/2024 1:40 PM CAREER DEVELOPMENT MANAGER Eren Cr MD LAB BLOOD ORDERABLES Final Re sult Performing Organization Address [facility] de Phone Number [facility] Department [place] [address] * (ABNORMAL) Chromogranin A (06/09/2024 1:27 PM CAREER DEVELOPMENT MANAGER) Chromogranin A 4537(H) <93 ng/mL [facility] Comment: Impaired renal or hepatic function or treatment with proton pump inhibitors may result in artifactual elevations of Chromogranin A. ADDITIONAL INFORMATION The testing method is a homogeneous time-resolved immunofluorescent assay manufactured by [employer] and performed on the [employer] Compact Plus. ? Values obtained with different [...] examination and other findings. Test Performed by: [place] [address] [employer] Team Lead: Carley Tony Ph.D.; CLIA# [id number] Blood 06/09/2024 1:27 PM CAREER DEVELOPMENT MANAGER 06/09/2024 3:08 PM CAREER DEVELOPMENT MANAGER us Eren Cr MD LAB BLOOD ORDERABLES Final Re sult [facility] Department [place] [address] [facility] Lab documented in this encounter Visit Diagnoses Diagnosis Neuroendocrine carcinoma (HCC) Other malignant neoplasm of unspecified site 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) documented in this encounter Orders Appointment Requests Count Last Ordered Date Fi rst Ordered Date ONCBCN LAB APPOINTMENT 1 06/09/2024 documented in this encounter Care Teams Wastewater Treatment Plant Chemist Relationship Specialty Start Date End Date Julio César Briseno MD PCP - General 10/01/16 Eren Cr MD Referring Physician Medical Oncology 11/25/18 Yohana Bowen MD Radiation Oncologist Radiation Oncology 11/25/18 Alejo Mi MD [address] [address] Referring Physician Nephrology 03/07/23 documented as of this encounter
--- OUTSIDE RECORDS SUMMARY | 2024-06-25 22:05 | XMS_ITS | Encounter Summary ---
Author Organization [facility] [employer] [facility] Address [address] [place] [address] Phone Care Team Providers Care Executive Sous Chef Name Role Phone Julio César Briseno MD Primary Care Provider [phone] Eren Cr MD Unavailable [phone] Yohana Bowen MD Unavailable Alejo Mi MD Unavailable [phone] Encounter Details Date Type Department Care Team (Late st Contact Info) Description 05/29/2024 Telephone [facility] Oncology [facility] Floor [address] [place] [address] Renay Renee RN Social History Tobacco Use Types Packs/Day [...] on file Legal Sex Female 2:41 PM CONSTRUCTION SPECIALIST Gender Identity Not on file Sexual Orientation Straight 02/19/2021 9: 29 AM CDT Occupation Industry Job Start Date Job End Date retired Not on file Not on file Not on file documented as of this encounter Miscellaneous Notes * Telephone Encounter - Renay Renee RN - 05/29/2024 9:14 AM CST Called and spoke with patient. Advised patient to hold off on paying the copay for the [place] right now. Per Dr. Cr, patient to see Dr. Browning and then decision can be made on medication. Patient verbalized understanding and agreeable with plan. TRUCTION SPECIALIST documented in this encounter Plan of Treatment Not on file documented as of this encounter Visit Diagnoses Not on filedocumented in this encounter Care Teams Executive Sous Chef Relationship Specialty Start Date End Date Julio César Briseno MD PCP - General 10/01/16 Eren Cr MD Referring Physician Medical Oncology 11/25/18 Yohana Bowen MD Radiation Oncologist Radiation Oncology 11/25/18 Alejo Mi MD [address] [place] [address] Referring Physician Nephrology 03/07/23 documented as of this encounter
--- OUTSIDE RECORDS SUMMARY | 2024-06-25 22:05 | XMS_ITS | Encounter Summary ---
Author Organization [facility] Healthcare Address [address] [place] [address] Care Team Providers Care Silk Screen Painter Name Role Phone Julio César Briseno MD Primary Care Provider [phone] Eren Cr MD Unavailable [phone] Yohana Bowen MD Unavailable Alejo Mi MD Unavailable [phone] Reason for Visit * Reason Comments Injections * Episode Based Medications (Routine) - Authorized Specialty Diagnoses / Procedures Referred By Contellen t Referred To Contact Oncology Diagnoses 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) Procedures CA OCTREOTIDE INJECTION, DEPOT Octreotide 28 Day Cycles - Carcinoid Eren Cr MD [address] [place] [address] Phone: tel: fax: [address] [address] Phone: tel: fax: Referral ID Status Reason Start Date Expiration Date V isits Requested Visits Authorized [id number] Authorized 11/28/2017 02/05/2025 1 150 Encounter Details Date Type Department Care Team (Late st Contact Info) Description 05/12/2024 11:45 AM BIOLOGICAL SCIENCE TECHNICIAN Infusion [facility] [address] [place] [id number] 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 Dx); Neuroendocrine carcinoma (HCC); Neuro-endocrine carcinoma (HCC); 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 female who presents for the following injection: Octreotide, and Xgeva. Nursing Assessment Nursing Assessment LOC: Alert Constitutional: Fatigue Fatigue: Occassional Any falls since your last visit?: No Orientation: Oriented x4 Peripheral Neuropathy: No Oral Mucosa Grade: Normal (0) Pt states has potential to be ?: N/A Shortness of Breath?: No Appetite: Fair Nausea/Vomiting: No Diarrhea: No Constipation: No Last BM Date: (ostomy) Skin Condition/Temp: Warm, Dry Swelling: No Additional Notes: Saw MD today. States no new issues or concerns, besides growth in her liver. Otherwise she feels well. Denies any mouth or jaw pain, no recent or upcoming dental work. States takingher supplements, PCP is working on changing them. Encounter Vitals BP: 143/78 (05/12/2024 11:08 AM) Pulse: 71 (05/12/2024 11:08 AM) Resp: 18 (05/12/2024 11:08 AM) Temp: 36.6 ??C (97.9 ??F) (05/12/2024 11:08 AM) Temp src: Oral (05/12/2024 11:08 AM) SpO2: 98 % (05/12/2024 11:08 AM) Weight: 75.3 kg (165 lb 14.4 oz) (05/12/2024 11:08 AM) Patient: met treatment parameters La Chung tolerated injection well Additional Notes: Right side today Discharge Plan Discharge instructions given to patient. 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 Allow to stand 15 to 30 mins prior to useIndications:Neuro-endoc rine carcinoma (HCC),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) Given 05/12/2024 12:49 PM BIOLOGICAL SCIENCE TECHNICIAN 120 mg Right Lower Abdomen octreotide LAR (SandoSTATIN LAR) extended release intramuscular injection 30 mg 30 mg, intramuscular, Once, On Sat05/12/24 at 1300, For 1 dose, Refrigerate. For IM intragluteal administration only- alternate gluteal sites. 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) Given 05/12/2024 12:53 PM BIOLOGICAL SCIENCE TECHNICIAN 30 mg Right Dorsogluteal/Butto ck documented in this encounter Orders Medications Ordered That Brett ht Not Have Been Administered Count Last Ordered Date First Ordered Date ondansetron (ZOFRAN) injection 8 mg 1 05/12 Nursing Count Last Ordered Date First Orde red Date ONCBCN NURSING COMMUNICATION [id number] 05/12 ONCBCN NURSING COMMUNICATION [id number] 1 1 07/12/2023 PHYSICIAN COMMUNICATION ORDER 1 05/12/2024 Appointment Requests Count Last Ordered Date Fi rst Ordered Date ONCBCN INJECTION APPOINTMENT REQUEST 1 11/2023 documented in this encounter Care Teams Silk Screen Painter Relationship Specialty Start Date End Date Julio César Briseno MD PCP - General 10/01/16 Eren Cr MD Referring Physician Medical Oncology 11/25/18 Yohana Bowen MD Radiation Oncologist Radiation Oncology 11/25/18 Alejo Mi MD [address] [address] Referring Physician Nephrology 03/07/23 documented as of this encounter
--- OUTSIDE RECORDS SUMMARY | 2024-06-25 22:05 | XMS_ITS | Encounter Summary ---
Author Organization [facility] Healthcare Address [address] [place] [address] Care Team Providers Care Software Product Specialist Name Role Phone Julio César Briseno MD Primary Care Provider [phone] Eren Cr MD Unavailable [phone] Yohana Bowen MD Unavailable Alejo Mi MD Unavailable [phone] Reason for Visit * Reason Comments Injections Sandostatin * Episode Based Medications (Routine) - Authorized Specialty Diagnoses / Procedures Referred By Contellen t Referred To Contact Oncology Diagnoses 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) Procedures CT OCTREOTIDE INJECTION, DEPOT Octreotide 28 Day Cycles - Carcinoid Eren Cr MD [address] [facility] [address] [place] [address] Phone: tel: fax: [address] [address] Phone: tel: fax: Referral ID Status Reason Start Date Expiration Date V isits Requested Visits Authorized [id number] Authorized 11/28/2017 02/05/2025 1 150 Encounter Details Date Type Department Care Team (Late st Contact Info) Description 06/09/2024 2:15 PM STITCHING DEPARTMENT SUPERVISOR Infusion [facility] - Infusion [address] [facility] [address] [place] [address] 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 [...] on file Legal Sex Female 2:41 PM STITCHING DEPARTMENT SUPERVISOR Gender Identity Not on file Sexual Orientation Straight 02/19/2021 9: 29 AM CDT Occupation Industry Job Start Date Job End Date retired Not on file Not on file Not on file documented as of this encounter Nursing Notes * Corine Zamorano RN - 06/09/2024 2:15 PM CST Oncology Nursing Note [facility] - [facility] La Chung is a 73 y.o. female who presents for the following injection: sandostatin. Nursing Assessment Nursing Assessment LOC: Alert, Awake Fatigue: Occassional Any falls since your last visit?: No Orientation: Oriented x4 Behavior: Calm Speech: Clear Language: No aphasia Vision: At baseline Peripheral Neuropathy: No Oral Mucosa Grade: Normal (0) Pt states has potential to be ?: N/A Shortness of Breath?: No Lungs auscultated PRN: No Pt is on oxygen?: No Respiratory Effort Characteristics: Dyspnea exertion Appetite: Good Have You Recently Lost Weight Without Trying?: No Have you been eating poorly because of a decreased appetite?: No Malnutrition Screening Tool (MST) Score: 0 Nausea/Vomiting: No Abdomen: Soft Diarrhea: Yes Constipation: No Last BM Date: 06/09/24 (ostomy) Skin Condition/Temp: Warm, Dry Swelling: No Additional Notes: Encounter Vitals BP: 149/99 (06/09/2024 10:47 AM) Pulse: 78 (06/09/2024 10:47 AM) Resp: 18 (06/09/2024 10:47 AM) Temp: 36.3 ??C (97.4 ??F) (06/09/2024 10:47 AM) Temp src: Oral (06/09/2024 10:47 AM) SpO2: 100 % (06/09/2024 10:47 AM) Weight: 78.5 kg (173 lb) (06/09/2024 10:47 AM) Height: 160 cm (5' 2.99 ) (06/09/2024 10:47 AM) Patient: met treatment parameters La Chung tolerated injection well Additional Notes: Discharge Plan Discharge instructions given to patient. Discharge Mode: Ambulatory Accompanied by: Self Discharged To: Home CHING DEPARTMENT SUPERVISOR documented in this encounter Plan of Treatment [...] 30 mg 30 mg, intramuscular, Once, On Sat06/09/24 at 1515, For 1 dose, Refrigerate. For IM intragluteal administration only- alternate gluteal sites. 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) Given 06/09/2024 2:56 PM STITCHING DEPARTMENT SUPERVISOR 30 mg Left Dorsogluteal/Butt ock documented in this encounter Orders Medications Ordered That Brett ht Not Have Been Administered Count Last Ordered Date First Ordered Date denosumab (XGEVA) subcutaneo us syringe 120 mg 1 06/09/2024 octreotide LAR (SandoSTATIN LAR) extended release intramuscular injection 30 mg 1 06/09/2024 Nursing Count Last Ordered Date First Orde red Date ONCBCN NURSING COMMUNICATION [id number] 06/09 ONCBCN NURSING COMMUNICATION [id number] 1 1 08/10/2023 PHYSICIAN COMMUNICATION ORDER 1 06/09/2024 Appointment Requests Count Last Ordered Date Fi rst Ordered Date ONCBCN INJECTION APPOINTMENT REQUEST 1 09/2023 documented in this encounter Care Teams Software Product Specialist Relationship Specialty Start Date End Date Julio César Briseno MD PCP - General 10/01/16 Eren Cr MD Referring Physician Medical Oncology 11/25/18 Yohana Bowen MD Radiation Oncologist Radiation Oncology 11/25/18 Alejo Mi MD [address] [address] Referring Physician Nephrology 03/07/23 documented as of this encounter
--- OUTSIDE RECORDS SUMMARY | 2024-06-25 22:05 | XMS_ITS | Encounter Summary ---
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) Eren Cr MD [address] [place] [address] Phone: tel: fax:[phone] Mikey Meraz MD [address] [facility] [address] [place] [address] Phone: tel: fax: Referral ID Status Reason Start Date Expiration Date V isits Requested Visits Authorized [id number] Closed Specialty Services Required 05/12/2024 06/11/2025 1 1 Encounter Details Date Type Department Care Team (Late st Contact Info) Description 05/21/2024 9:00 AM CHRISTIAN MINISTRIES PROFESSOR Office Visit [facility] Radiology, Interventional Radiology [address] [facility] [address] [place] [address] Mikey Meraz MD [address] 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) Social History Tobacco Use Types Packs/Day [...] on file Legal Sex Female 2:41 PM CHRISTIAN MINISTRIES PROFESSOR Gender Identity Not on file Sexual Orientation Straight 02/19/2021 9: 29 AM CDT Occupation Industry Job Start Date Job End Date retired Not on file Not on file Not on file documented as of this encounter Last Filed Vital Signs Vital Sign Reading Time Taken Comments Blood Pressure - - Pulse - - Temperature - - Respiratory Rate - - Oxygen Saturation - - Inhaled Oxygen Concentration - - Weight 74.8 kg (165 lb) 05/21/2024 8:58 AM CHRISTIAN MINISTRIES PROFESSOR Height 160 cm (5' 3 ) 05/21/2024 8:58 AM CHRISTIAN MINISTRIES PROFESSOR Body Mass Index 29.23 05/21/2024 8:58 AM CHRISTIAN MINISTRIES PROFESSOR documented in this encounter Progress Notes * Rosalina Tyler MD - 05/21/2024 9:00 AM CST Images from the original note were not included. 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 She presents to IR to discuss locoregional therapy with TACE. She denies any abdominal pain, jaundice, or pruritus. PHYSICAL EXAM: Height 160 cm (5' 3 ), weight 74.8 kg (165 lb). Physical Exam Cardiovascular: Rate and Rhythm: Normal rate and regular rhythm. Pulmonary: Effort: Pulmonary effort is normal. Breath sounds: Normal breath sounds and air entry. Abdominal: General: Bowel sounds are normal. Palpations: Abdomen is soft. Neurological: Mental Status: She is alert. DATA REVIEW: I have reviewed the patient???s past medical history (including surgical, family and social histories), medications, and allergies in the electronic medical record. PMH: Past Medical History: Diagnosis Date Arthritis Family [...] 09/2019 immunotherapy Status post radiation therapy 09/2019 PSH: Past Surgical History: Procedure Laterality Date APPENDECTOMY [...] this procedure TOTAL KNEE ARTHROPLASTY Left 2014 Social Hx: reports that she has never smoked. She has never used smokeless tobacco. She reports that she does not use drugs. Patient reports consuming alcoholic drinks monthly or less, with a daily consumption of drinks. Patient denies daily consumption of 6 or more alcoholic drinks at one occasion. Family Hx: family history includes Anesthesia problems in her grandchild; Breast cancer (age of onset: 61) in her sister; Cancer in her sister; Diabetes in her sister; Hearing loss in her mother; Heart disease in her mother; Hypertension in her brother, mother, and sister; Melanoma (age of onset: 30) in her daughter; Suicidality in her father; old age in her mother. Allergies: Morphine, Ezetimibe-simvastatin, and Ramipril Meds: Current Outpatient Medications: 0.9 % sodium chloride ([facility] sodium chloride 0.9%) injection 0.9 % sodium chloride (sodium chloride 0.9%) 0.9% infusion amLODIPine (NORVASC) 5 mg tablet amoxicillin 500 mg capsule ascorbic acid, vitamin C, 500 mg capsule cholecalciferol (VITAMIN D-3) 1,000 unit clotrimazole-betamethasone (LOTRISONE) cream coenzyme Q39-[id number] E 100-5 mg-unit capsule denosumab (Xgeva) 120 mg/1.7 mL (70 mg/mL) injection diphenoxylate-atropine (LOMOTIL) 2.5-0.025 mg per tablet ergocalciferol (VITAMIN D) 50,000 unit capsule fluticasone propionate (FLONASE) 50 mcg/actuation nasal spray heparin 100 unit/mL solution ipratropium (ATROVENT) 42 mcg (0.06 %) nasal spray levothyroxine (SYNTHROID) 100 mcg tablet lidocaine-prilocaine (lidocaine-prilocaine) cream loperamide HCl (IMODIUM A-D ORAL) LORazepam (ATIVAN) 0.5 mg tablet losartan (COZAAR) 25 mg tablet montelukast (SINGULAIR) 10 mg tablet octreotide (SandoSTATIN) 100 mcg/mL injection ondansetron (ZOFRAN) 8 mg tablet ostomy supplies misc prochlorperazine (COMPAZINE) 10 mg tablet simvastatin (ZOCOR) 20 mg tablet sodium chloride 0.9 % solution No current facility-administered medications for this visit. Facility-Administered Medications Ordered in Other Visits: L-arginine 1.25%/L-lysine 1.25% infusion 1,000 mL, 1,000 mL, intravenous, Continuous The following notes were reviewed in detail: Eren Cr MD, oncology, 05/12/2024 The following laboratory data was reviewed: Hematology Lab History Latest Ref Rng & Units 02/18/2024 09:45 03/17/2024 11:16 04/14/2024 10:35 05/12/2024 10:26 Labs - Hematology WBC 3.8 - 9.9 K/cumm 5.0 4.2 6.8 7.9 Total Hb, POC 11.9 - 15.5 g/dL 10.8 10.9 10.8 11.3 Hct 35.6 - 45.5 % 33.4 33.6 33.5 35.5 Plt 150 - 400 K/cumm 124 102 117 129 Neutrophil abs 1.5 - 6.5 K/cumm 2.2 2.2 2.7 2.7 2.5 Lymphocytes, abs 0.8 - 3.3 K/cumm 2.2 1.3 2.7 2.7 3.0 Chem/LFT Lab History Latest Ref Rng & Units 02/18/2024 09:45 03/17/2024 11:16 04/14/2024 10:35 05/12/2024 10:26 Labs-Chem/LFT Sodium 135 - 145 mmol/L 140 137 140 139 Creatinine 0.60 - 1.10 mg/dL 1.17 1.34 1.46 1.44 Bilirubin, total 0.1 - 1.2 mg/dL 0.4 0.5 0.4 0.4 AST 10 - 45 Units/L 35 27 32 38 ALT 7 - 45 Units/L 20 16 18 21 Alk phos 40 - 130 Units/L 54 55 57 66 CrCl- Actual Body Weight (Cockcroft-Gault) 49.9 42.7 39.6 40.1 I have independently reviewed the following imaging CT abdomen and pelvis from 05/06/2024 and my interpretation is as follows: increased in size liver masses involving both sabrina livers. MEDICAL DECISION MAKIN-year-old woman with neuroendocrine tumors to the liver and findings of disease progression on recent imaging. We discussed with the patient the options for intra-arterial locoregional therapies including chemoembolization . We explained that chemoembolization involves 1 procedure with deliveringthe chemotherapeutic/embolic agent mixture to the vessel/vessels supplying the tumor. Side effects including pain, nausea/vomiting, and fatigue are more likely to occur with chemoembolization and that we usually admit patients overnight for observation. Follow-up MRI is usually obtained in 6-8 weeks. We discussed that multiple procedures may be required and the true extend of the disease and intra -arterial chemotherapy feasibility will be known after the first procedure. The patient was counseled on the risks, benefits and alternatives of the procedure. We discussed the risks of bleeding, organ injury, and necessity of additional invasive procedures, treatment failure and in rare instances . After explaining the details of the image guided invasive procedure, the expected course of recovery and co-morbidities affecting the treatment, the shared decision was to evaluate all the treatment options and the patient knows to contact us should she wish to proceed. I have spent a total of ... minutes personally reviewing the patient???s clinical data, interviewing and examining the patient, coordinating care and clinical documentation on this date 05/21/2024. Cosigned by Mikey Meraz MD at 05/21/2024 12:56 PM CHRISTIAN MINISTRIES PROFESSOR STIAN MINISTRIES PROFESSOR STIAN MINISTRIES PROFESSOR Associated attestation - Mikey Meraz MD - 05/21/2024 12:56 PM CHRISTIAN MINISTRIES PROFESSOR Images from the original note were not included. I have seen and examined the patient. I agree with the findings and plan of care as documented in the resident/fellow's note. My total encounter time on 05/21/2024 was 50 minutes which was spent in the activities documented in the note. This includes time spent prior to the visit and after the visit in direct care of the patient. This time does not include time spent in any separately reportable services. 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 Take 1 hour before a meal or 2 hours after. Take with full glass of water. 05/13/2024 05/21/2024 documented as of this encounter Orders Outpatient Referral Count Last Ordered Date Fir st Ordered Date AMB REFERRAL TO INTERVENTIONAL RADIOLOGY 1 05/21/2024 documented in this encounter Care Teams Access Analyst Relationship Specialty Start Date End Date Julio César Briseno MD PCP - General 10/01/16 Eren Cr MD Referring Physician Medical Oncology 11/25/18 Yohana Bowen MD Radiation Oncologist Radiation Oncology 11/25/18 Alejo Mi MD [address] [address] Referring Physician Nephrology 03/07/23 documented as of this encounter
--- OUTSIDE RECORDS SUMMARY | 2024-06-25 22:05 | XMS_ITS | Encounter Summary ---
Author Organization [facility] Address [address] [place] [address] Phone Care Team Providers Care Groundskeeper Porter Name Role Phone Julio César Briseno MD Primary Care Provider [phone] Eren Cr MD Unavailable [phone] Yohana Bowen MD Unavailable Alejo Mi MD Unavailable [phone] Encounter Details Date Type Department Care Team (Late st Contact Info) Description 05/13/2024 Orders Only [facility] [address] [place] [address] Eren Cr MD [address] [place] [address] Neuro-endocrine carcinoma (HCC) (Primary Dx) Social History Tobacco Use Types [...] on file Legal 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 Take 1 hour before a meal or 2 hours after. Take with full glass of water. 30 tablet 05/13/2024 05/21/2024 documented in this encounter Plan of Treatment Not on file documented as of this encounter Visit Diagnoses Diagnosis Neuro-endocrine carcinoma (HCC)- Primary Other malignant neoplasm of unspecified site documented in this encounter Discontinued Medications Medication Sig Discontinue Reason Start Date End Da te [facility] cabozantinib/placebo (/[id number]) 20 mg tabletIndications:canc er study Take 1 tablet (20 mg total) by mouth nightly Take on an empty stomach (no food for 2 hours before and 1 hour after each dose).?? Avoid Jas's Wort, grapefruit products and [place] oranges while on treatment. placed on hold 09/26/22 for covid Alternate therapy 01/29/2022 05/13/2024 documented as of this encounter Care Teams Groundskeeper Porter Relationship Specialty Start Date End Date Julio César Briseno MD PCP - General 10/01/16 Eren Cr MD Referring Physician Medical Oncology 11/25/18 Yohana Bowen MD Radiation Oncologist Radiation Oncology 11/25/18 Alejo Mi MD [address] [place] [address] Referring Physician Nephrology 03/07/23 documented as of this encounter
--- OUTSIDE RECORDS SUMMARY | 2024-06-25 22:05 | XMS_ITS | Encounter Summary ---
Author Organization [facility] Address [address] [place] [address] Care Team Providers Care Screen Making Technician Name Role Phone Julio César Briseno MD Primary Care Provider [phone] Eren Cr MD Unavailable Yohana Bowen MD Unavailable Alejo Mi MD Unavailable Encounter Details Date Type Department Care Team (Late st Contact Info) Description 05/15/2024 Telephone [facility] Radiation Oncology at [facility] [address] [place] [address] Yohana Bowen MD [address] [facility] [address] [place] [address] Social History Tobacco Use Types [...] on file Legal 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 Medicare & aarp In Network / Out of Network? In Network Yes/No Physician Additional Notes Do you have a primary care physician? Yes Julio César Briseno MD Have you been seen by a cancer physician? Yes Have you seen a radiation doctor? Yes 2019 Have you seen a surgeon for your cancer? No Are there any other specialists in your care? 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 No Did you have a CT scan? Yes 05/06/2024 Did you have a PET scan? No Did you have an (MRI) scan? No Did you receive chemotherapy? Yes current Did you receive radiation? Yes 2019 Since your cancer diagnosis, have you been in the hospital or had surgery? No R TAXI OPERATOR documented in this encounter Plan of Treatment Not on file documented as of this encounter Visit Diagnoses Not on filedocumented in this encounter Care Teams Screen Making Technician Relationship Specialty Start Date End Date Julio César Briseno MD PCP - General 10/01/16 Eren Cr MD Referring Physician Medical Oncology 11/25/18 Yohana Bowen MD Radiation Oncologist Radiation Oncology 11/25/18 Alejo Mi MD [address] [place] [address] Referring Physician Nephrology 03/07/23 documented as of this encounter
--- OUTSIDE RECORDS SUMMARY | 2024-06-25 22:05 | XMS_ITS | Encounter Summary ---
Author Organization [facility] Healthcare Address [address] [place] [address] Care Team Providers Care Home Economist Name Role Phone Julio César Briseno MD Primary Care Provider [phone] Eren Cr MD Unavailable [phone] Yohana Bowen MD Unavailable Alejo Mi MD Unavailable [phone] Encounter Details Date Type Department Care Team (Late st Contact Info) Description 05/13/2024 Orders Only [facility] Cancer [address] [address] Yoana Murray [facility] Social History Tobacco Use Types Packs/Day Years [...] on file Legal Sex Female 2:41 PM 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 Gender Identity Not on file Sexual Orientation Straight 02/19/2021 9: 29 AM CDT Occupation Industry Job Start Date Job End Date retired Not on file Not on file Not on file documented as of this encounter Plan of Treatment Not on file documented as of this encounter Visit Diagnoses Not on filedocumented in this encounter Care Teams Home Economist Relationship Specialty Start Date End Date Julio César Briseno MD PCP - General 10/01/16 Eren Cr MD Referring Physician Medical Oncology 11/25/18 Yohana Bowen MD Radiation Oncologist Radiation Oncology 11/25/18 Alejo Mi MD [address] [address] Referring Physician Nephrology 03/07/23 documented as of this encounter
--- OUTSIDE RECORDS SUMMARY | 2024-06-25 22:05 | XMS_ITS | Encounter Summary ---
Author Organization [facility] Address [address] [place] [address] Phone Care Team Providers Care Ticket Taker Name Role Phone Julio César Briseno MD Primary Care Provider Eren Cr MD Unavailable [phone] Yohana Bowen MD Unavailable Alejo Mi MD Unavailable [phone] Encounter Details Date Type Department Care Team (Late st Contact Info) Description 06/10/2024 Orders Only [facility] Oncology [address] [place] [address] Eren Cr MD [address] [place] [address] Neuroendocrine carcinoma (HCC) (Primary Dx); Malignant neoplasm [...] on file Legal Sex 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 Gender Identity Not on file Sexual Orientation Straight 02/19/2021 9: 29 AM CDT Occupation Industry Job Start Date Job End Date retired Not on file Not on file Not on file documented as of this encounter Plan of Treatment Scheduled Orders Name Type Priority Associated Diagnoses Orde r Schedule Lipid panel Lab Routine 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) Expected: 07/14/2024, Expires: 07/14/2025 Phosphorus Lab Routine 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) Expected: 07/14/2024, Expires: 07/14/2025 Vitamin D 25 hydroxy Lab Routine 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) Expected: 07/14/2024, Expires: 07/14/2025 Chromogranin A Lab Routine 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) Expected: 07/14/2024, Expires: 07/14/2025 documented as of this encounter Visit Diagnoses Diagnosis Neuroendocrine carcinoma (HCC)- Primary Other malignant neoplasm of unspecified site 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
--- OUTSIDE RECORDS SUMMARY | 2024-06-25 22:05 | XMS_ITS | Encounter Summary ---
Author Organization [facility] Healthcare Address [address] [place] [address] Care Team Providers Care Manager Product Design Name Role Phone Julio César Briseno MD Primary Care Provider [phone] Eren Cr MD Unavailable [phone] Yohana Bowen MD Unavailable Alejo Mi MD Unavailable [phone] Encounter Details Date Type Department Care Team (Late st Contact Info) Description 05/26/2024 Telephone [facility] [place] [facility] [address] [facility] [address] [place] [address] Callie Yousif, [place] Social History Tobacco Use Types Packs/Day Years [...] on file Legal Sex Female 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 Received confirmation that transmission was successful. Called [employer] to let them know PA is approved stating 05/13/2024 until further notice. They requesteda copy. RECEIVED FAX from [facility] stating PA was required. OIDERY ASSISTANT documented in this encounter Plan of Treatment Not on file documented as of this encounter Visit Diagnoses Not on filedocumented in this encounter Care Teams Manager Product Design Relationship Specialty Start Date End Date Julio César Briseno MD PCP - General 10/01/16 Eren Cr MD Referring Physician Medical Oncology 11/25/18 Yohana Bowen MD Radiation Oncologist Radiation Oncology 11/25/18 Alejo Mi MD [address] [place] [address] Referring Physician Nephrology 03/07/23 documented as of this encounter
--- OUTSIDE RECORDS SUMMARY | 2024-06-25 22:05 | XMS_ITS | Encounter Summary ---
Author Organization [facility] Address [address] [place] [address] Phone Care Team Providers Care Power Grader Operator Name Role Phone Julio César Briseno MD Primary Care Provider Eren Cr MD Unavailable [phone] Yohana Bowen MD Unavailable Alejo Mi MD Unavailable [phone] Encounter Details Date Type Department Care Team (Late st Contact Info) Description 04/14/2024 Orders Only [facility] Oncology [address] [facility] [address] [place] [address] Hien Jaimes, [facility] Social History Tobacco Use Types [...] on file Legal 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 Gender Identity Not on file Sexual Orientation Straight 02/19/2021 9: 29 AM CDT Occupation Industry Job Start Date Job End Date retired Not on file Not on file Not on file documented as of this encounter Plan of Treatment Not on file documented as of this encounter Visit Diagnoses Not on filedocumented in this encounter Care Teams Power Grader Operator Relationship Specialty Start Date End Date Julio César Briseno MD PCP - General 10/01/16 Eren Cr MD Referring Physician Medical Oncology 11/25/18 Yohana Bowen MD Radiation Oncologist Radiation Oncology 11/25/18 Alejo Mi MD [address] [address] Referring Physician Nephrology 03/07/23 documented as of this encounter
--- OUTSIDE RECORDS SUMMARY | 2024-06-25 22:05 | XMS_ITS | Encounter Summary ---
Author Organization [facility] Healthcare Address [address] [place] [address] Care Team Providers Care Flow Machine Operator Name Role Phone Julio César Briseno MD Primary Care Provider [phone] Eren Cr MD Unavailable [phone] Yohana Bowen MD Unavailable Alejo Mi MD Unavailable [phone] Encounter Details Date Type Department Care Team (Late st Contact Info) Description 04/30/2024 Orders Only [facility] Health Information Management [address] [place] [address] Scanning, Provider Social History Tobacco Use Types Packs/Day Years [...] on file Legal Sex Female 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 Gender Identity Not on file Sexual Orientation Straight 02/19/2021 9: 29 AM CDT Occupation Industry Job Start Date Job End Date retired Not on file Not on file Not on file documented as of this encounter Plan of Treatment Not on file documented as of this encounter Procedures Procedure Name Priority Date/Time Associated Diagnosis Comments SCAN - OTHER ORDERS 04/30/2024 documented in this encounter Results * SCAN - OTHER ORDERS (04/30/2024) Provider Scanning Final Result documented in this encounter Visit Diagnoses Not on filedocumented in this encounter Care Teams Flow Machine Operator Relationship Specialty Start Date End Date Jluio César Briseno MD PCP - General 10/01/16 Eren Cr MD Referring Physician Medical Oncology 11/25/18 Yohana Bowen MD Radiation Oncologist Radiation Oncology 11/25/18 Alejo Mi MD [address] [place] [address] Referring Physician Nephrology 03/07/23 documented as of this encounter
--- OUTSIDE RECORDS SUMMARY | 2024-06-25 22:05 | XMS_ITS | Encounter Summary ---
Author Organization [facility] Healthcare Address [address] [place] [address] Care Team Providers Care Building Construction Superintendent Name Role Phone Julio César Briseno MD Primary Care Provider [phone] Eren Cr MD Unavailable [phone] Yohana Bowen MD Unavailable Alejo Mi MD Unavailable [phone] Reason for Visit * Episode Based Medications (Routine) - Closed Specialty Diagnoses / Procedures Referred By Evelnye bowman Referred To Contact Diagnoses Neuro-endocrine carcinoma (HCC) Procedures study [id number] phase III cabozantinib Eren Cr MD [address] [place] [address] Phone: tel: fax: [facility] [address] [facility] Advanced Medicine 7th [place] [address] Phone: tel: Referral ID Status Reason Start Date Expiration Date Visits Re quested Visits Authorized [id number] Closed 06/21/2021 06/26/2024 1 99 Encounter Details Date Type Department Care Team (Latest Contact Info) Description 04/14/2024 12:15 PM CDT [facility] Pick-Up/CTRU Optical Instruments Supervisor [address] [address] Neuro-endocrine carcinoma (HCC) (Primary Dx) Social History [...] on file Legal Sex Female 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 Gender Identity Not on file Sexual Orientation [...] of unspecified site documented in this encounter Orders Medications Ordered That Brett ht Not Have Been Administered Count Last Ordered Date First Ordered Date INV-[facility] cabozantinib (/[id number]) tablet 20 mg 1 04/14/2024 Nursing Count Last Ordered Date First Orde red Date ONCBCN STUDY COMMUNICATION 1 1 04/14/2024 ONCBCN TREATMENT PARAMETERS 1 1 04/14/2024 RESEARCH STUDY CLARIFICATION ORDER 1 2023 Appointment Requests Count Last Ordered Date Fi rst Ordered Date ONCBCN TAKE HOME STUDY DRUG APPT 1 04/14/20 24 documented in this encounter Care Teams Building Construction Superintendent Relationship Specialty Start Date End Date Julio César Briseno MD PCP - General 10/01/16 Eren Cr MD Referring Physician Medical Oncology 11/25/18 Yohana Bowen MD Radiation Oncologist Radiation Oncology 11/25/18 Alejo Mi MD [address] [place] [address] Referring Physician Nephrology 03/07/23 documented as of this encounter
--- OUTSIDE RECORDS SUMMARY | 2024-06-25 22:05 | XMS_ITS | Encounter Summary ---
Author Organization [facility] Healthcare Address [address] [place] [address] Care Team Providers Care Hyster Driver Name Role Phone Julio César Briseno MD Primary Care Provider [phone] Eren Cr MD Unavailable [phone] Yohana Bowen MD Unavailable Alejo Mi MD Unavailable [phone] Reason for Referral * MRI/CAT/PET Scan (Routine) - Closed Specialty Diagnoses / Procedures Referred By Evelyne bowman Referred To Contact Radiology Diagnoses Neuroendocrine carcinoma (HCC) Procedures CT chest abdomen pelvis with contrast Eren Cr MD [address] [place] [address] Phone: tel: fax: [address] [address] Referral ID Status Reason Start Date Expiration Date Visits Re quested Visits Authorized [id number] Closed 04/03/2024 05/03/2025 1 1 Reason for Visit * MRI/CAT/PET Scan (Routine) - Closed Specialty Diagnoses / Procedures [facility] Referred To Contact Radiology Diagnoses Neuroendocrine carcinoma (HCC) Procedures CT chest abdomen pelvis with contrast Eren Cr MD [address] [place] [address] Phone: tel: fax: [facility] [address] [facility] [place] [address] Referral ID Status Reason Start Date Expiration Date Visits Re quested Visits Authorized [id number] Closed 04/03/2024 05/03/2025 1 1 Encounter Details Date Type Department Care Team (Latest Contact Info) Description 05/06/2024 8:06 AM CDT - 05/06/2024 11:59 PM CDT Hospital Encounter [facility] [address] [place] [address] Eren Cr MD [address] [facility] [address] [place] [address] Neuroendocrine carcinoma (HCC) Discharge Disposition: Discharge to [...] on file Legal Sex Female 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 Gender Identity Not on file Sexual Orientation Straight 02/19/2021 9: 29 AM CDT Occupation Industry Job Start Date Job End Date retired Not on file Not on file Not on file documented as of this encounter Medications at Time of Discharge amLODIPine (NORVASC) 5 mg tablet 09/25/2023 denosumab (Xgeva) 120 mg/1.7 mL (70 mg/mL) injection Inject 1.7 mL (120 mg total) under the skin every 28 (twenty-eight) days levothyroxine (SYNTHROID) 100 mcg tabletIndications :Hypothyroidism, unspecified type Take 1 tablet (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) by mouth senior mainframe developer before breakfast 90 tablet 3 11/28/2023 5 lidocaine-priloca ine (lidocaine-priloc cheyenne) creamIndications: Neuro-endocrine carcinoma [...] film to manage. 20 each 6 09/21/2019 simvastatin (ZOCOR) 20 mg tablet Take 1 tablet (20 mg total) by mouth nightly 0.9 % sodium chloride (COUNT INCLUDES THE [facility] sodium chloride 0.9%) injectionIndicati ons:line care Infuse 10 mL into a venous catheter once a week On saturday 4 0.9 % sodium chloride (sodium chloride 0.9%) 0.9% infusion 05/22/2023 4 amoxicillin 500 mg capsule TAKE 4 CAPSULES BY MOUTH 1 HOUR BEFORE APPOINTMENT 01/27/2024 4 ascorbic acid, vitamin C, 500 mg capsuleIndication s:supplement Take 1 tablet by mouth senior mainframe developer before breakfast 07/04/2016 4 clotrimazole-beta methasone (LOTRISONE) cream Apply 1 Application topically daily as needed (rash) 4 coenzyme D48-ktoqjth E 100-5 mg-unit capsuleIndication s:supplement Take 1 tablet by mouth senior mainframe developer before breakfast 4 diphenoxylate-atr opine (LOMOTIL) 2.5-0.025 mg per tabletIndications :Chemotherapy-Ind uced Diarrhea Take 1 tablet by mouth 4 (four) times a day as needed for diarrhea 90 tablet 02/14/[address] (CYMBALTA) 60 mg capsule 1 capsule (60 mg total) 01/07/2024 4 ergocalciferol (VITAMIN D) 50,000 unit capsuleIndication [...] week Fluids every -Heparin to flush 4 [facility] cabozantinib/plac abdulkadir (2018-02-122/A021 602) 20 mg tabletIndications :cancer study Take 1 tablet (20 mg total) by mouth nightly Take on an empty stomach (no food for 2 hours before and 1 hour after each dose).?? Avoid Bee's Wort, grapefruit products and [place] oranges while on treatment. placed on hold 09/26/22 for covid 01/29/2022 4 ipratropium (ATROVENT) 42 mcg (0.06 %) nasal spray [place] 1 spray twice a day by nasal [...] total) by mouth as needed (allergies) 4 olmesartan-hydroc hlorothiazide (BENICAR HCT) 20-12.5 mg per tabletIndications :hypertension Take 1 tablet by mouth every morning 05/14/2019 4 sodium chloride 0.9 % solutionIndicatio ns:hydration Infuse 1,000 mL into a venous catheter once a week Patient to infuse 1000mL of Normal Saline via CADD Coreas pump set at 300mL/Hr once weekly.- Saturday09/14/2022 4 triamcinolone (KENALOG) 0.1 % ointment Apply to itchy rash on hands twice daily until improved 454 g 1 05/06/2020 4 documented as of this encounter Discharge Disposition Disposition Code Departure Means Destination Discharge to home or self care documented in this encounter Plan of Treatment Not on file documented as of this encounter Procedures Procedure Name Priority Date/Time Associated Diagnosis Comments CT CHEST ABDOMEN PELVIS W CONTRAST Schedule Routine, Read Routine (OP Routine) 05/06/2024 8:51 AM CDT Neuroendocrine carcinoma (HCC) documented in this encounter Results * CT chest abdomen pelvis with contrast [...] signed by: Manny Loya M.D., Ph.D Eren Cr MD IMG CT PROCEDURES Final Resul t documented in this encounter Visit Diagnoses Diagnosis Neuroendocrine carcinoma (HCC) Other malignant neoplasm of unspecified site documented in this encounter Administered Medications Inactive Administered Medications - up to 3 most recent administrations Medication Order MAR Action Action Date Dose Rate Site ioversoL (OPTIRAY 350) syringe 75 mL 75 mL, intravenous, Once in imaging, contrast, Starting on Sat05/06/24 at 0847, For 1 dose Contrast Given 05/06/2024 8:48 AM CDT 68 mL documented in this encounter Orders Medications Ordered That Brett ht Not Have Been Administered Count Last Ordered Date First Ordered Date ioversoL (OPTIRAY 350) syringe 75 mL 1 04/09 documented in this encounter Care Teams Hyster Driver Relationship Specialty Start Date End Date Julio César Briseno MD PCP - General 10/01/16 Eren Cr MD Referring Physician Medical Oncology 11/25/18 Yohana Bowen MD Radiation Oncologist Radiation Oncology 11/25/18 Alejo Mi MD [address] [address] Referring Physician Nephrology 03/07/23 documented as of this encounter
--- OUTSIDE RECORDS SUMMARY | 2024-06-25 22:05 | XMS_ITS | Encounter Summary ---
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) Eren Cr MD [address] [place] [address] Phone: tel: fax: Yohana Bowen MD [id number] [place] [address] Phone: tel: fax: Referral ID Status Reason Start Date Expiration Date V isits Requested Visits Authorized [id number] Closed Specialty Services Required 05/12/2024 06/11/2025 1 1 Encounter Details Date Type Department Care Team (Late st Contact Info) Description 05/26/2024 9:00 AM BASIN TENDER Consult [facility] Radiation Oncology at [facility] [address] [place] [address] Yohana Bowen MD [address] [facility] [address] [place] [address] Neuro-endocrine carcinoma (HCC); Malignant neoplasm metastatic to [...] on file Legal Sex Female 2:41 PM BASIN TENDER Gender Identity Not on file Sexual Orientation Straight 02/19/2021 9: 29 AM CDT Occupation Industry Job Start Date Job End Date retired Not on file Not on file Not on file documented as of this encounter Last Filed Vital Signs Vital Sign Reading Time Taken Comments Blood Pressure 130/81 05/26/2024 8:53 AM BASIN TENDER Pulse 70 05/26/2024 8:53 AM BASIN TENDER Temperature - - Respiratory Rate - - Oxygen Saturation 99% 05/26/2024 8:53 AM BASIN TENDER Inhaled Oxygen Concentration - - Weight 76.2 kg (168 lb) 05/26/2024 8:53 AM BASIN TENDER Height 160 cm (5' 3 ) 05/26/2024 8:53 AM BASIN TENDER Body Mass Index 29.76 05/26/2024 8:53 AM BASIN TENDER documented in this encounter Consult Notes * Dima Modi MD - 05/26/2024 9:00 AM CST RADIATION ONCOLOGY CONSULTATION NOTE LOCATION: [facility] PATIENT NAME: La Chung DATE OF : 1950 DATE OF SERVICE: 05/26/2024 ATTENDING PHYSICIAN: Yohana Bowen MD REFERRING PHYSICIAN(S): Patient Care Team: Eren Cr MD as Referring Physician (Medical Oncology) Alejo Mi MD as Referring Physician (Nephrology) IDENTIFYING DATA: Cancer Staging 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 La Chung is a 73 y.o. 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 Returning for consideration of repeat lutathera vs TACE. We are consulted for recommendations regarding palliative radiation therapy. ONCOLOGIC HISTORY: Oncology History Overview Note DIAGNOSIS: [...] time, she also underwent right colectomy in [facility] OR by Dr. Greyson Reeves. Biopsy [...] Neuroendocrine tumor 01/06/2018 Initial Diagnosis Neuroendocrine tumor HISTORY OF PRESENT ILLNESS: Ms. 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 She indicates that she has baseline fatigue, but is overall feeling well. She denies bleeding, constipation, diarrhea, fevers, chills, SoB, cough and weight loss. She was been seen by IR on 05/21/24,who discussed TACE Of note: Treatment will wait until seeing Dr. Browning 06/09/24 to assess trial eligibility. PAST MEDICAL HISTORY Past Medical History: Diagnosis Date Arthritis [...] 09/2019 immunotherapy Status post radiation therapy 09/2019 PAST SURGICAL HISTORY Past Surgical History: Procedure Laterality Date APPENDECTOMY [...] this procedure TOTAL KNEE ARTHROPLASTY Left 2015 ALLERGIES: Allergies Allergen Reactions Morphine Blisters and Rash Ezetimibe-Simvastatin Muscle pain, Other (See comments) and Unknown Muscle weakness Ramipril Cough MEDICATIONS: Current Outpatient Medications: 0.9 % sodium chloride ([facility] sodium chloride 0.9%) injection, Infuse 10 [...] mg capsule, Take 1 tablet by mouth pot holder binder before breakfast (Patient not taking: Reported on [...] Reported on 01/24/2024), Disp: , Rfl: coenzyme D21-ewgzfod E 100-5 mg-unit capsule, Take 1 tablet by mouth pot holder binder before breakfast(Patient not taking: Reported on 12/24/2023), Disp: , Rfl: denosumab (Xgeva) 120 mg/1.7 mL (70 mg/mL) injection, Inject 1.7 mL (120 mg total) under the skin every 28 (twenty-eight) days, Disp: , Rfl: diphenoxylate-atropine (LOMOTIL) 2.5-0.025 mg per tablet, Take 1 tablet by mouth 4 (four) times a day as needed for diarrhea, Disp: 90 tablet, Rfl: 0 ergocalciferol (VITAMIN D) 50,000 unit capsule, Take [...] taking: Reported on 12/24/2023), Disp: , Rfl: ipratropium (ATROVENT) 42 mcg (0.06 %) nasal spray, [place] 1 spray twice a day by nasal route for 13days., Disp: , Rfl: levothyroxine (SYNTHROID) 100 mcg tablet, Take 1 tablet (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) by mouth pot holder binder before breakfast, Disp: 90 tablet, Rfl: 3 lidocaine-prilocaine (lidocaine-prilocaine) cream, Apply topically as needed [...] to MRI exam, may repeat dose if minutes prior to MRI (Patient taking differently: Take 1 tablet (0.5 mg total) by mouth every 8 (eight) hours as needed for anxiety (MRI) Take 1 tablet 1 hour prior to MRI exam, may repeat dose ifneeded 15 minutes prior to MRI), Disp: 2 tablet, Rfl: 0 losartan (COZAAR) 25 mg tablet, Take 1 tablet every day by oral route., Disp: , Rfl: montelukast (SINGULAIR) 10 mg tablet, Take 1 tablet (10 mg total) by mouth as needed (allergies), Disp: , Rfl: octreotide (SandoSTATIN) 100 mcg/mL [...] to manage., Disp: 20 each, Rfl: 6 prochlorperazine (COMPAZINE) 10 mg tablet, Take 1 [...] taking: Reported on 01/14/2024), Disp: , Rfl: No current facility-administered medications for this visit. Facility-Administered Medications Ordered in Other Visits: L-arginine 1.25%/L-lysine 1.25% infusion 1,000 mL, 1,000 mL, intravenous, Continuous, LaurenE. Amaya MD SOCIAL HISTORY: Social History Tobacco Use Smoking status: Never Smokeless tobacco: Never Substance and Sexual Activity Drug use: No Sexual activity: Defer Partners: Male control/protection: Post-menopausal Alcohol Use: Unknown (05/26/2024) AUDIT-C Frequency of Alcohol Consumption: Not on file Average Number of Drinks: Patient does not drink Frequency of Binge Drinking: Not on file The patient lives in [place], a [address] [place] from [facility] and about [place]from [facility]. FAMILY HISTORY: Cancer-related family history includes Breast cancer (age of onset: 61) in her sister; Cancer in her sister; Melanoma (age of onset: 30) in her daughter. REVIEW OF SYSTEMS: Except for the symptoms described above, the remainder of the review of systems is negative. Specifically, except as noted, when asked the patient expressed no complaints relative to constitutional (fever, weight loss), eyes, ears, nose, mouth, throat, neurologic, cardiovascular, pulmonary, GI, ,skin, musculoskeletal, endocrine, hematologic/lymphatic, or immunologic systems. RADIATION SCREENING QUESTIONS: Prior radiation therapy: No Pacemaker or implanted electronic devices: No Connective tissue disease: No PHYSICAL EXAMINATION: Pain Score and Location 05/26/24 0853 PainSc: 0-No pain BP 130/81 Pulse 70 Ht 160 cm (5' 3 ) Wt 76.2 kg (168 lb) SpO2 99% BMI 29.76 kg/m?? The KPS scale today is 80, Normal activity with effort; some signs or symptoms of disease (ECOG equivalent 1) GEN: NAD HEENT: NCAT, EOMI CV: Heart sounds appropriate. No m/r/g. Extremities warm, well perfused. RESP: Normal WOB ABD: non-distended, non-tender MSK: Appropriate ROM. SKIN: Warm and dry NEURO: No FND. Motor and sensory grossly intact DIAGNOSTIC REPORTS REVIEWED: Radiographic Imaging: All imaging was personally reviewed and interpreted in clinic. Findings as per HPI and EMR. Laboratory/Pathology: All imaging was personally reviewed and interpreted in clinic. Findings as per HPI and EMR. 05/06/24 CT CAP FINDINGS: CHEST: There is mild increase in [...] hepatic segment 6 lesion on series 3 [id number] now measures 2.4 cm, presumably 1.8 cm. [...] the patient's vaginal cuff on series 3 [id number] is not significantly changed compared to the [...] course and caliber. There are changes of leftlower quadrant ostomy and right hemicolectomy. No suspicious [...] adjacent fat stranding; recommend correlation with urinalysis. ASSESSMENT: Ms. 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 Her imaging showed progression with increased size of multiple hepatic lesions. That being said, the lesions appeared to be amenable to TACE per IR's note, which would be a good locoregional option and potentially allow her the opportunity to continue her systemic therapy. PLAN: We are consulted for recommendations regarding palliative radiation therapy. - After discussing with Ms. Chung and her family, they were leaning towards TACE, - No need to return to F/U Dima Modi MD MPHS PGY-2 Resident Physician Radiation Oncology Department Rad Onc Contact Info Saturday-Saturday 7am-5pm If you know the resident's name on the appropriate radiation oncology team (e.g., signature on the plan of care or consult note), please use [email or web address] to page/call the resident directly. Alternatively, please call the radiation oncology front end driver at [phone]. Saturday-Saturday 5pm-7am or on weekends Please reach the on-call radiation oncology service through the [facility] desulphuring operator line ([phone]). Cosigned by Yohana Bowen MD at 06/09/2024 11:30 AM BASIN TENDER N TENDER N TENDER Associated attestation - Yohana Bowen MD - 06/09/2024 11:30 AM BASIN TENDER I have seen and examined the patient. I agree with the findings and plan of care as documented in the resident/fellow's note. My total encounter time on 05/26/2024 was 35 minutes which was spent in the activities documented in the note. This includes time spent prior to the visit and after the visit in direct care of the patient. This time does not include time spent in any separately reportable services. 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
--- OUTSIDE RECORDS SUMMARY | 2024-06-25 22:05 | XMS_ITS | Encounter Summary ---
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 Left voicemail message for patient with NE's direct office number requesting return call. WORKER HELPER documented in this encounter Plan of Treatment Not on file documented as of this encounter Visit Diagnoses Not on filedocumented in this encounter Care Teams Cyber Security Consultant Relationship Specialty Start Date End Date Julio César Briseno MD PCP - General 10/01/16 Eren Cr MD Referring Physician Medical Oncology 11/25/18 Yohana Bowen MD Radiation Oncologist Radiation Oncology 11/25/18 Alejo Mi MD [address] [address] Referring Physician Nephrology 03/07/23 documented as of this encounter
--- OUTSIDE RECORDS SUMMARY | 2024-06-25 22:05 | XMS_ITS | Encounter Summary ---
Author Organization [facility] Healthcare Address [address] [place] [address] Care Team Providers Care Room Service Attendant Name Role Phone Julio César Briseno MD Primary Care Provider [phone] Eren Cr MD Unavailable [phone] Yohana Bowen MD Unavailable Alejo Mi MD Unavailable Encounter Details Date Type Department Care Team (Late st Contact Info) Description 05/13/2024 Orders Only [facility] [address] [place] [address] Eren Cr MD [address] [place] [address] Social History Tobacco Use Types [...] on file Legal Sex Female 2:41 PM COMMUNITY RELATIONS REP Gender Identity Not on file Sexual Orientation Straight 02/19/2021 9: 29 AM CDT Occupation Industry Job Start Date Job End Date retired Not on file Not on file Not on file documented as of this encounter Plan of Treatment Not on file documented as of this encounter Visit Diagnoses Not on filedocumented in this encounter Care Teams Room Service Attendant Relationship Specialty Start Date End Date Julio César Briseno MD PCP - General 10/01/16 Eren Cr MD Referring Physician Medical Oncology 11/25/18 Yohana Bowen MD Radiation Oncologist Radiation Oncology 11/25/18 Alejo Mi MD [address] [place] [address] Referring Physician Nephrology 03/07/23 documented as of this encounter
--- OUTSIDE RECORDS SUMMARY | 2024-06-25 22:05 | XMS_ITS | Encounter Summary ---
Author Organization [facility] Address [address] [place] [address] Phone Care Team Providers Care Industrial Psychology Professor Name Role Phone Julio César Briseno MD Primary Care Provider [phone] Eren Cr MD Unavailable [phone] Yohana Bowen MD Unavailable Alejo Mi MD Unavailable [phone] Encounter Details Date Type Department Care Team (Late st Contact Info) Description 05/12/2024 Orders Only [facility] Oncology [address] [place] [address] Eren Cr MD [address] [place] [address] Social History Tobacco Use Types Packs/Day Years [...] file Legal Sex Female 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 LINE Gender Identity Not on file Sexual Orientation Straight 02/19/2021 9: 29 AM CDT Occupation Industry Job Start Date Job End Date retired Not on file Not on file Not on file documented as of this encounter Plan of Treatment Not on file documented as of this encounter Visit Diagnoses Not on filedocumented in this encounter Care Teams Industrial Psychology Professor Relationship Specialty Start Date End Date Julio César Briseno MD PCP - General 10/01/16 Eren Cr MD Referring Physician Medical Oncology 11/25/18 Yohana Bowen MD Radiation Oncologist Radiation Oncology 11/25/18 Alejo Mi MD [address] [place] [address] Referring Physician Nephrology 03/07/23 documented as of this encounter
--- OUTSIDE RECORDS SUMMARY | 2024-06-25 22:05 | XMS_ITS | Encounter Summary ---
Author Organization [facility] Healthcare Address [address] [place] [address] Care Team Providers Care Pewter Fabricator Name Role Phone Julio César Briseno MD Primary Care Provider [phone] Eren Cr MD Unavailable [phone] Yohana Bowen MD Unavailable Alejo Mi MD Unavailable [phone] Reason for Visit * Reason Onset Date Comments [facility] 05/14/2024 Encounter Details Date Type Department Care Team (Late st Contact Info) Description 05/14/2024 Documentation [facility] [address] [facility] Floor [address] [place] [address] Idania Pat CMA [facility] Social History Tobacco Use Types Packs/Day Years [...] on file Legal Sex Female 2:41 PM FOOD AND BEVERAGE COORDINATOR Gender Identity Not on file Sexual Orientation Straight 02/19/2021 9: 29 AM CDT Occupation Industry Job Start Date Job End Date retired Not on file Not on file Not on file documented as of this encounter Progress Notes * Idania Pat, [facility] - 05/14/2024 2:58 PM CST ORAL ONCOLOGY MEDICATION OVERVIEW Medication(s) applied to: [facility] INSTRUMENT ASSEMBLY SUPERVISOR: [employer] ID#: [id number] BIN: [id number] PCN: [facility]: [facility] CUSTOMER SERVICE #: FAX#: INSURANCE PRIOR AUTHORIZATION STATUS: APPROVED AUTH#: N/A EFFECTIVE: 05/14/2025 EXPIRES: 07/07/2099 NOTES: MARLEY [id number] FINANCIAL ASSISTANCE Co-payment Amount: $[id number] Patient Screening Information: - What's the household size?: 2 - What's the annual household income?: $60K STATED PER PT >>>>>> Financial Toxicity Prescription Dru. 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 Co-payment Card Obtained?: N/A - Medicare Ins Co-payment Aaron Obtained?: NO - No disease fund available for pt Dx at this time PAP (Cpr Instructor Free Drug) application Obtained?: DENIED- OVER INCOME Foundation/Organization: NEXT STEPS: [PA APPROVED, PAP DENIED DUE TO INCOME] PHARMACY INFORMATION: CAN THIS DRUG BE FILLED AT [facility]?: YES CAN THIS DRUG BE FILLED AT [facility] ([facility]): YES DOES THIS DRUG REQUIRE THE USE OF A OUTSIDE SPECIALTY PHARMACY?: NO DISPENSING PHARMACY NAME: [facility] PHONE#: [phone] PHARMACY CLAIM BENEFIT INVESTIGATION AND CO-PAYMENT SUMMARY - COMPLETED BY IN- HOUSE DISPENSING PHARMACY NOTES: 05/29 Possibly to Appeal PAP decision. Clinical team will decide on next steps at pt's next visit office visit. Spoke to pt, Agreeable to this plan 05/27 PAP DENIED- OVER INCOME, INBASKET TO [facility] FOR NEXT STEPS 05/14 EVAL FOR COPAY, 05/18 PT WOULD LIKE ASSISTANCE, WILL APPLY THROUGH EASE PAP APPLICATION, Completed by: Idania Pat CMA AND BEVERAGE COORDINATOR AND BEVERAGE COORDINATOR AND BEVERAGE COORDINATOR AND BEVERAGE COORDINATOR documented in this encounter Plan of Treatment Not on file documented as of this encounter Visit Diagnoses Not on filedocumented in this encounter Care Teams Pewter Fabricator Relationship Specialty Start Date End Date Julio César Briseno MD PCP - General 10/01/16 Eren Cr MD Referring Physician Medical Oncology 11/25/18 Yohana Bowen MD Radiation Oncologist Radiation Oncology 11/25/18 Alejo Mi MD [address] [address] Referring Physician Nephrology 03/07/23 documented as of this encounter
--- OUTSIDE RECORDS SUMMARY | 2024-06-25 22:05 | XMS_ITS | Encounter Summary ---
Author Organization [facility] Address [address] [place] [address] Phone Care Team Providers Care Air Valve Repairer Name Role Phone Julio César Briseno MD Primary Care Provider Eren Cr MD Unavailable [phone] Yohana Bowen MD Unavailable Alejo Mi MD Unavailable [phone] Encounter Details Date Type Department Care Team (Late st Contact Info) Description 05/13/2024 Orders Only [facility] Oncology [address] [place] [address] Eren Cr MD [address] [place] [address] Social History Tobacco Use Types Packs/Day Years [...] on file Legal Sex Female 2:41 PM PRESS CATCHER Gender Identity Not on file Sexual Orientation Straight 02/19/2021 9: 29 AM CDT Occupation Industry Job Start Date Job End Date retired Not on file Not on file Not on file documented as of this encounter Plan of Treatment Not on file documented as of this encounter Visit Diagnoses Not on filedocumented in this encounter Care Teams Air Valve Repairer Relationship Specialty Start Date End Date Julio César Briseno MD PCP - General 10/01/16 Eren Cr MD Referring Physician Medical Oncology 11/25/18 Yohana Bowen MD Radiation Oncologist Radiation Oncology 11/25/18 Alejo Mi MD [address] [place] [address] Referring Physician Nephrology 03/07/23 documented as of this encounter
--- OUTSIDE RECORDS SUMMARY | 2024-06-25 22:05 | XMS_ITS | Encounter Summary ---
Author Organization [facility] Address [address] [place] [address] Phone Care Team Providers Care Historiographer Name Role Phone Julio César Briseno MD Primary Care Provider Eren Cr MD Unavailable [phone] Yohana Bowen MD Unavailable Alejo Mi MD Unavailable [phone] Encounter Details Date Type Department Care Team (Late st Contact Info) Description 06/09/2024 Orders Only [facility] Oncology [address] [facility] [address] [place] [address] Claude Browning MD [address] [facility] [address] [place] [address] Neuroendocrine carcinoma (HCC) (Primary Dx) Social History Tobacco [...] on file Legal Sex Female 2:41 PM GAS PLANT WORKER Gender Identity Not on file Sexual Orientation Straight 02/19/2021 9: 29 AM CDT Occupation Industry Job Start Date Job End Date retired Not on file Not on file Not on file documented as of this encounter Plan of Treatment Not on file documented as of this encounter Results * (ABNORMAL) Comprehensive metabolic panel (06/09/2024 1:27 PM GAS PLANT WORKER) Sodium 140 135 - 145 mmol/L Potassium, pl 4.1 3.3 - 4.9 mmol/L [facility] Chloride 109 97 - 110 mmol/L [facility] CO2 24 22 - 32 mmol/L [facility] Anion gap 7 2 - 15 mmol/L [facility] BUN 20 6 - 25 mg/dL [facility] Creatinine 1.73(H) 0.60 - 1.10 mg/dL [facility] Glucose 90 70 - 199 mg/dL [facility] Comment: Interpretive Data Fasting glucose >/= [...] 2022. Calcium 9.6 8.5 - 10.3 mg/dL [facility] Bilirubin, total 0.6 0.1 - 1.2 mg/dL [facility] Protein, pl 6.4(L) 6.5 - 8.5 g/dL [facility] Albumin 3.9 3.5 - 5.0 g/dL [facility] Alk phos 79 40 - 130 Units/L [facility] ALT 9 7 - 45 Units/L [facility] AST 28 10 - 45 Units/L [facility] Blood 06/09/2024 1:27 PM GAS PLANT WORKER 06/09/2024 1:40 PM GAS PLANT WORKER Claude Browning MD LAB BLOOD ORDERABLES Mel l Result [facility] Department [place] [address] documented in this encounter Visit Diagnoses Diagnosis Neuroendocrine carcinoma (HCC)- Primary Other malignant neoplasm of unspecified site documented in this encounter Care Teams Historiographer Relationship Specialty Start Date End Date Julio César Briseno MD PCP - General 10/01/16 Eren Cr MD Referring Physician Medical Oncology 11/25/18 Yohana Bowen MD Radiation Oncologist Radiation Oncology 11/25/18 Alejo Mi MD [address] [facility] [address] [place] [address] Referring Physician Nephrology 03/07/23 documented as of this encounter
--- OUTSIDE RECORDS SUMMARY | 2024-06-25 22:05 | XMS_ITS | Encounter Summary ---
Author Organization [facility] Address [address] [place] [address] Phone Care Team Providers Care Farm Equipment Mechanic Apprentice Name Role Phone Julio César Briseno MD Primary Care Provider [phone] Eren Cr MD Unavailable [phone] Yohana Bowen MD Unavailable Alejo Mi MD Unavailable [phone] Encounter Details Date Type Department Care Team (Late st Contact Info) Description 05/22/2024 Orders Only [facility] Oncology [address] [place] [address] Eren Cr MD [address] [place] [address] Neuroendocrine carcinoma (HCC) (Primary Dx); Malignant neoplasm [...] on file Legal Sex Female 2:41 PM REFRIGERATING TECHNICIAN Gender Identity Not on file Sexual Orientation Straight 02/19/2021 9: 29 AM CDT Occupation Industry Job Start Date Job End Date retired Not on file Not on file Not on file documented as of this encounter Plan of Treatment Not on file documented as of this encounter Results * (ABNORMAL) Chromogranin A (06/09/2024 1:27 PM REFRIGERATING TECHNICIAN) Chromogranin A 4537(H) <93 ng/mL [place] [facility] Comment: Impaired renal or hepatic function or treatment with proton pump inhibitors may result in artifactual elevations of Chromogranin A. ADDITIONAL INFORMATION The testing method is a homogeneous time-resolved immunofluorescent assay manufactured by [employer] and performed on the [employer] Kryptor Compact Plus. ? Values obtained with [...] examination and other findings. Test Performed by: [facility] [address] [place] [address] Barrel Stave Inspector: Carley Tony Ph.D.; CLIA# [id number] Blood 06/09/2024 1:27 PM REFRIGERATING TECHNICIAN 06/09/2024 3:08 PM REFRIGERATING TECHNICIAN Eren Cr MD LAB BLOOD ORDERABLES Final Re sult Performing Organization Address City/[facility] Co de Phone Number [facility] [place] [address] [place] ref [facility] * (ABNORMAL) Vitamin D 25 hydroxy (06/09/2024 1:27 PM REFRIGERATING TECHNICIAN) Pathologist [facility] Vitamin D 25-OH 16(L) 30 - 80 ng/mL Blood 06/09/2024 1:27 PM REFRIGERATING TECHNICIAN 06/09/2024 1:40 PM REFRIGERATING TECHNICIAN Eren Cr MD LAB BLOOD ORDERABLES Final Re sult Performing Organization Address [facility] de Phone Number [facility] [place] [address] * Phosphorus (06/09/2024 1:27 PM REFRIGERATING TECHNICIAN) Pathologist [facility] Phosphorus, pl 3.1 2.3 - 4.5 mg/dL Blood 06/09/2024 1:27 PM REFRIGERATING TECHNICIAN 06/09/2024 1:40 PM REFRIGERATING TECHNICIAN Eren Cr MD LAB BLOOD ORDERABLES Final Re sult Performing Organization Address [facility] Co de Phone Number [facility] [place] [address] * (ABNORMAL) Lipid panel (06/09/2024 1:27 PM REFRIGERATING TECHNICIAN) [facility] Cholesterol 135 30 - 199 mg/dL Comment: [...] on 2018. HDL 39(L) >=40 mg/dL [facility] Comment: Interpretive Data [...] on 2018. LDL, calculated 68 <=129 mg/dL [facility] Comment: Interpretive Data Ages < or [...] on 2024. Non-HDL Cholesterol 96 mg/dL [facility] Comment: Interpretive Data Ages < [...] last revised on 2018. 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
--- OUTSIDE RECORDS SUMMARY | 2024-06-25 22:05 | XMS_ITS | Encounter Summary ---
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 Dr Meraz or Dr. Ying please. 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) Eren Wu MD [address] [place] [address] [address] [place] [address] Phone: tel: fax: Janice Bowen MD [address] [place] [address] [address] [place] [address] Phone: tel: fax: Referral ID Status Reason Start Date Expiration Date V isits Requested Visits Authorized [id number] Closed Specialty Services Required 05/12/2024 06/11/2025 1 1 Question Answer Please select the performing region: [facility] [[id number]] Please select the performing department: [facility] [[id number]] To provider: JANICE BOWEN [[id number]] # of visits: [address] 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 Previously received PRRT in [id number]. Thank you WORKER Reason for Visit * Episode Based Medications (Routine) - Closed Specialty Diagnoses / Procedures Referred By Contac t Referred To Contact Diagnoses Neuro-endocrine carcinoma (HCC) Procedures study [id number] phase [place] [address] [place] [address] [address] [place] [address] Phone: tel: fax: [facility] [address] [facility] 7th [place] [address] Phone: tel: Referral ID Status Reason Start Date Expiration Date Visits Re quested Visits Authorized [id number] Closed 06/21/2021 06/26/2024 1 99 Encounter Details Date Type Department Care Team (Late st Contact Info) Description 05/12/2024 10:45 AM SORT WORKER Office Visit [facility] [address] [place] [address] Eren Wu MD [address] [facility] [address] [place] [address] Neuro-endocrine carcinoma (HCC) (Primary Dx); Malignant neoplasm [...] on file Legal Sex Female 2:41 PM SORT WORKER Gender Identity Not on file Sexual Orientation Straight 02/19/2021 9: 29 AM CDT Occupation Industry Job Start Date Job End Date retired Not on file Not on file Not on file documented as of this encounter Last Filed Vital Signs Vital Sign Reading Time Taken Comments Blood Pressure 143/78 05/12/2024 11:08 AM SORT WORKER Pulse 71 05/12/2024 11:08 AM SORT WORKER Temperature 36.6 ??C (97.9 ??F) 05/12/2024 1 1:08 AM SORT WORKER Respiratory Rate 18 05/12/2024 11:0 8 AM SORT WORKER Oxygen Saturation 98% 05/12/2024 11: 08 AM SORT WORKER Inhaled Oxygen Concentration - - Weight 75.3 kg (165 lb 14.4 oz) 024 11:08 AM SORT WORKER Height - - Body Mass Index 29.39 01/24/2024 2:43 PM CDT documented in this encounter Progress Notes * Eren Wu MD - 05/12/2024 10:45 AM CST Images from the original note were not included. MEDICAL ONCOLOGY OUTPATIENT ROV NOTE La Chung : 1950 DATE OF VISIT: 05/12/24 Oncology History Overview Note DIAGNOSIS: well differentiated [...] time, she also underwent right colectomy in [facility] [place] by Dr. Greyson Reeves. Biopsy [...] She has been tolerating the 20 mg dose on the CABINET study. She had scans done 05/06/2024 and per RECIST reading, she now has progression. She continues to feel well Today, she is here with her daughter and notes: - feeling well - no bleeding - no constipation, diarrhea - grade 1 tiredness - no fevers, chills - no SOB, cough Current Outpatient Medications Medication Instructions 0.9 % sodium chloride ([facility] sodium chloride 0.9%) injection 10 mL, Weekly 0.9 % sodium chloride (sodium chloride 0.9%) 0.9% infusion amLODIPine (NORVASC) 5 mg tablet amoxicillin 500 mg capsule TAKE 4 CAPSULES BY MOUTH 1 HOUR BEFORE APPOINTMENT ascorbic acid, vitamin C, 500 mg capsule 1 tablet, Daily (early AM) cholecalciferol (VITAMIN D-3) 1,000 Units, oral, Daily clotrimazole-betamethasone (LOTRISONE) cream Apply 1 Application topically daily as needed (rash) coenzyme [id number] E 100-5 mg-unit capsule 1 tablet, Daily (early AM) denosumab (Xgeva) 120 mg/1.7 mL (70 mg/mL) injection Inject 1.7 mL (120 mg total) under the skin every 28 (twenty-eight) days diphenoxylate-atropine (LOMOTIL) 2.5-0.025 mg per tablet 1 tablet, oral, 4 times daily PRN DULoxetine DR (CYMBALTA) 60 mg ergocalciferol (VITAMIN D) 50,000 Units, oral, Weekly fluticasone propionate (FLONASE) 50 mcg/actuation nasal spray Administer 2 sprays into each nostrildaily as needed for rhinitis or allergies heparin 100 unit/mL solution 5 mL, Weekly [facility] cabozantinib/placebo (/[id number]) 20 mg, Nightly ipratropium (ATROVENT) 42 mcg (0.06 %) nasal spray Boley 1 spray twice a day by nasal route for 13 days. levothyroxine (SYNTHROID) 100 mcg, oral, Daily (early AM) lidocaine-prilocaine (lidocaine-prilocaine) cream topical, As needed, Apply a generous amount topically to port site 1 hour prior to lab/treatment, do not rub in, and cover with non absorbant dressing loperamide HCl (IMODIUM A-D ORAL) 1 tablet, Daily PRN LORazepam (ATIVAN) 0.5 mg tablet Take 1 tablet 1 hour prior to MRI exam, may repeat dose if needed 15 minutes prior to MRI losartan (COZAAR) 25 mg tablet Take 1 tablet every day by oral route. montelukast (SINGULAIR) 10 mg, As needed octreotide (SANDOSTATIN) 100 mcg, Every 30 days olmesartan-hydrochlorothiazide (BENICAR HCT) 20-12.5 mg per tablet 1 tablet, Every morning ondansetron (ZOFRAN) 8 mg tablet TAKE 1 TABLET EVERY 8 HOURS NEEDED FOR NAUSEA OR VOMITING ostomy supplies misc Patient has colostomy and needs Cavilon 3M skin barrier film to manage. prochlorperazine (COMPAZINE) 10 mg, oral, Every 6 hours PRN simvastatin (ZOCOR) 20 mg, Nightly sodium chloride 0.9 % solution 1,000 mL, Weekly triamcinolone (KENALOG) 0.1 % ointment Apply to itchy rash on hands twice daily until improved Review of Systems Constitutional: Positive for malaise/fatigue. Negative for fever. HENT: Negative for nosebleeds and sore throat. Eyes: Negative. Respiratory: Negative. Cardiovascular: Negative. Gastrointestinal: Negative. Genitourinary: Negative. Musculoskeletal: Negative. Skin: Negative. Negative for itching and rash. Neurological: Negative. Endo/Heme/Allergies: Negative. Psychiatric/Behavioral: The patient is nervous/anxious. Objective ECOG PS: 1 VITALS: BP 143/78 (BP Location: Left arm) Pulse 71 Temp 36.6 ??C (97.9 ??F) (Oral) Resp 18 Wt 75.3 kg (165 lb 14.4 oz) SpO2 98% BMI 29.39 kg/m?? Physical Exam Vitals reviewed. Constitutional: Appearance: Normal appearance. HENT: Head: Normocephalic and atraumatic. Nose: Nose normal. Eyes: Conjunctiva/sclera: Conjunctivae normal. Cardiovascular: Rate and Rhythm: Normal rate. Pulses: Normal pulses. Heart sounds: Normal heart sounds. Pulmonary: Effort: Pulmonary effort is normal. Breath sounds: No wheezing. Abdominal: General: Abdomen is flat. Bowel sounds are normal. Palpations: Abdomen is soft. Musculoskeletal: General: Normal range of motion. Cervical back: Normal range of motion. Skin: General: Skin is warm and dry. Neurological: General: No focal deficit present. Mental Status: She is alert. Psychiatric: Thought Content: Thought content normal. LABORATORY: I [...] Body Weight (Cockcroft-Gault) 49.9 42.7 39.6 40.1 Tumor Marker History Latest Ref Rng & Units 01/21/2024 11:44 02/18/2024 09:35 03/17/2024 11:16 04/14/2024 10:35 Tumor Markers Chromogranin A <93 ng/mL 3301 3200 2992 2929 Tumor markers pending today. RADIOGRAPHIC/DIAGNOSTIC REVIEW: CT chest abdomen pelvis with contrast 05/06/2024 1. Increased size of multiple hepatic lesions compatible with the patient's known metastatic disease. Additional soft tissue lesions and lymphadenopathy in the abdomen and pelvis are not significantly changed. A right lower lobe pulmonary nodule is mildly increased in size. 2. Decompressed urinary bladder with mild adjacent fat stranding; recommend correlation with urinalysis. CT chest abdomen pelvis with contrast 02/12/2024 [...] 1. Metastatic neuroendocrine tumor with metastases - we reviewed her scan report and images as well as her RECIST report noting progressive disease - we reviewed her labs as above -based on the RECIST reading of progression, she will be taken off study for progression. - We reviewed that she had been on study for quite a while and options for next treatment may include the following: -1. Off study cabozantinib. Pros and cons for this discussed. She had been on a low dose at 20 mg. Possible escalation or maintain same dose are options -2. Locoregional therapy with TACE. Rationale for this with liver dominant metastases. Will refer to VIR -3. Possible consideration of repeat PRRT, will confer with Radiation Oncology -4. Clinical study options such as temodar M177 or another clinical study/phase 1 study -We also discussed possible consultation/transfer to Dr. Browning. Pat and daughter interested inconsulting with Dr. Browning with possible transfer. I have also reached out to Dr. Browning. - will continue current octreotide LAR monthly injections - FIELD CROP HARVEST WORKER saw pt for end of study visit. 2. Bone metastases - No suspicious lesions on last CT. 3. Diarrhea - Has chronic diarrhea since diagnosis. -improved 4. Hypothyroidism with TSH elevated - Managed per endocrinology. 5. Vitamin D insufficiency/Deficiency - followed by nephrology 6. Renal function - Creatinine 1.44 - follows with Nephrology 7. Right TM perforation - Follow up with ENT, s/p surgery. 8. Hyperparathyroidism - Calcium 10.1 today - nephrology following. 9. HTN - per her PCP She will call us in the interim for any questions, concerns, or worsening symptoms. She is agreeable with this plan of care. Eren Wu MD Division of Medical Oncology 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) Cancer [...] Cancer Treatment Plan Change for ICARE data: Yes - disease not responding Jump to the Problem List Disease Status [...] ICARE data: No change in treatment plan WORKER documented in this encounter Miscellaneous Notes * Addendum Note - Eren Wu MD - 05/12/2024 10:45 AM CSTAddended by: EREN WU on: 05/13/2024 12:06 PM Modules accepted: Orders WORKER documented in this encounter Plan of Treatment Scheduled Referrals Name Type Priority Associated Diagnoses Order Schedule Ambulatory referral to Radiation Oncology Outpatient Referral Urgent 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) Expected: 05/26/2024 (Approximate), Expires: 05/12/2025 Ambulatory referral to Interventional Radiology Outpatient Referral Urgent 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 ipratropium (ATROVENT) 42 mcg (0.06 %) nasal spray Boley 1 spray twice a day by nasal route for 13 days. 04/28/2024 06/14/2024 added in this encounter Orders Appointment Requests Count Last Ordered Date Fi rst Ordered Date [facility]N CLINIC APPOINTMENT REQUEST 1 024 documented in this encounter Care Teams Drone Software Development Engineer Relationship Specialty Start Date End Date Julio César Briseno MD PCP - General 10/01/16 rEen Wu MD Referring Physician Medical Oncology 11/25/18 Janice Bowen MD Radiation Oncologist Radiation Oncology 11/25/18 Alejo Mi MD [address] [address] Referring Physician Nephrology 03/07/23 documented as of this encounter
--- OUTSIDE RECORDS SUMMARY | 2024-06-25 22:05 | XMS_ITS | Encounter Summary ---
Author Organization [facility] Address [address] [place] [address] Care Team Providers Care Electronics Scale Tester Name Role Phone Julio César Briseno MD Primary Care Provider [phone] Eren Cr MD Unavailable [phone] Yohana Bowen MD Unavailable Alejo Mi MD Unavailable [phone] Reason for Visit * Episode Based Medications (Routine) - Closed Specialty Diagnoses / Procedures Referred By Evelyne bowman Referred To Contact Diagnoses Neuro-endocrine carcinoma (HCC) Procedures study [id number] phase III cabozantinib Eren Cr MD [address] [place] [address] Phone: tel: fax: [facility] [address] [facility] 7th [place] [address] Phone: tel: Referral ID Status Reason Start Date Expiration Date Visits Re quested Visits Authorized [id number] Closed 06/21/2021 06/26/2024 1 99 Encounter Details Date Type Department Care Team (Latest Contact Info) Description 05/12/2024 10:00 AM NUTRITIONAL SERVICES DIRECTOR Clinical Support [facility] [address] [place] [address] Neuro-endocrine carcinoma (HCC); Neuroendocrine carcinoma (HCC); 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); Research study patient Social History Tobacco Use Types Packs/Day Years [...] on file Legal Sex Female 2:41 PM NUTRITIONAL SERVICES DIRECTOR Gender Identity Not on file Sexual Orientation Straight 02/19/2021 9: 29 AM CDT Occupation Industry Job Start Date Job End Date retired Not on file Not on file Not on file documented as of this encounter Plan of Treatment Not on file documented as of this encounter Procedures Procedure Name Priority Date/Time Associated Diagnosis Comments EGFR STAT 05/12/2024 10:26 AM NUTRITIONAL SERVICES DIRECTOR Neuro-endocrine carcinoma (HCC) DIFFERENTIAL AUTO STAT 05/12/2024 10: 26 AM NUTRITIONAL SERVICES DIRECTOR Neuro-endocrine carcinoma (HCC) CHROMOGRANIN A Routine 05/12/2024 10:26 AM NUTRITIONAL SERVICES DIRECTOR 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) CBC WITH AUTO DIFFERENTIAL STAT 05/12/2024 10:26 AM NUTRITIONAL SERVICES DIRECTOR Neuro-endocrine carcinoma (HCC) VITAMIN D 25 HYDROXY Routine 05/12/2024 10:26 AM NUTRITIONAL SERVICES DIRECTOR 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) MANUAL DIFFERENTIAL STAT 05/12/2024 1 0:26 AM NUTRITIONAL SERVICES DIRECTOR Neuro-endocrine carcinoma (HCC) PHOSPHORUS Routine 05/12/2024 10:26 AM NUTRITIONAL SERVICES DIRECTOR 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) MAGNESIUM STAT 05/12/2024 10:26 AM NUTRITIONAL SERVICES DIRECTOR Neuro-endocrine carcinoma (HCC) LIPID PANEL Routine 05/12/2024 10:26 AM NUTRITIONAL SERVICES DIRECTOR 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) COMPREHENSIVE METABOLIC PANEL STAT 05/12/2024 10:26 AM NUTRITIONAL SERVICES DIRECTOR Neuro-endocrine carcinoma (HCC) documented in this encounter Results * (ABNORMAL) Manual Differential (05/12/2024 10:26 AM NUTRITIONAL SERVICES DIRECTOR) Pathologist [facility] Differential Auto RBC morphology Present(A ) [facility] Anisocytosis Slight(A) [facility] Elliptocytes 3-7/HPF(A ) [facility] Platelet estimate Decreased (A) [facility] Blood 05/12/2024 10:2 6 AM NUTRITIONAL SERVICES DIRECTOR 05/12/2024 10:27 AM NUTRITIONAL SERVICES DIRECTOR us Eren Cr MD LAB BLOOD ORDERABLES Final Re sult [facility] Department [place] [address] * (ABNORMAL) eGFR (05/12/2024 10:26 AM NUTRITIONAL SERVICES DIRECTOR) eGFR 38(L) >=60 mL/min/1. 73 m2 Comment: [...] reviewed 2021. Blood 05/12/2024 10:2 6 AM NUTRITIONAL SERVICES DIRECTOR 05/12/2024 10:27 AM NUTRITIONAL SERVICES DIRECTOR us Eren Cr MD LAB BLOOD ORDERABLES Final Re sult [facility] Department [place] [address] * (ABNORMAL) Differential, auto (05/12/2024 10:26 AM NUTRITIONAL SERVICES DIRECTOR) Pathologist [facility] Neutrophil abs 2.5 1.5 - 6.5 K/cumm Comment:Testing performed by : [facility], [address] [place] [id number] Imm gran abs 0.0 0.0 - 0.1 K/cumm [facility] Lymphocyte abs 3.0 0.8 - 3.3 K/cumm [facility] Monocyte abs 2.2(H) 0.2 - 0.8 K/cumm [facility] Eosinophil abs 0.2 0.0 - 0.5 K/cumm [facility] Basophil abs 0.0 0.0 - 0.1 K/cumm [facility] Neutrophil pct 31.2 % [facility] Comment: Interpretive Data Percent cell count reference ranges are not reported, since discordance with absolute values may lead to misinterpretation of CBC data. Current Interpretive Data was last revised on 2017. Imm gran pct 0.3 % [facility] Comment: Interpretive Data Percent cell count reference ranges are not reported, since discordance with absolute values may lead to misinterpretation of CBC data. Current Interpretive Data was last revised on 2017. Lymphocyte pct 37.5 % [facility] Comment: Interpretive Data Percent cell count reference ranges are not reported, since discordance with absolute values may lead to misinterpretation of CBC data. Current Interpretive Data was last revised on 2017. Monocyte pct 28.1 % [facility] Comment: Interpretive Data Percent cell count reference ranges are not reported, since discordance with absolute values may lead to misinterpretation of CBC data. Current Interpretive Data was last revised on 2017. Eosinophil pct 2.5 % [facility] Comment: Interpretive Data Percent cell count reference ranges are not reported, since discordance with absolute values may lead to misinterpretation of CBC data. Current Interpretive Data was last revised on 2017. Basophil pct 0.4 % [facility] Comment: Interpretive Data Percent cell count reference ranges are not reported, since discordance with absolute values may lead to misinterpretation of CBC data. Current Interpretive Data was last revised on 2017. Blood 05/12/2024 10:2 6 AM NUTRITIONAL SERVICES DIRECTOR 05/12/2024 10:27 AM NUTRITIONAL SERVICES DIRECTOR us Eren Cr MD LAB BLOOD ORDERABLES Final Re sult [facility] [place] [address] * (ABNORMAL) CBC with auto differential (05/12/2024 10:26 AM NUTRITIONAL SERVICES DIRECTOR) WBC 7.9 3.8 - 9.9 K/cumm Comment:Testing performed by : [facility], [address] [place] [address] Hgb 11.3(L) 11.9 - 15.5 g/dL [facility] Comment:Testing performed by : [address] [address] Hct 35.5(L) 35.6 - 45.5 % [facility] Comment:Testing performed by : [address] [address] Plt 129(L) 150 - 400 K/cumm [facility] Comment:Testing performed by : [address] [address] MPV 9.0(L) 9.1 - 12.3 fL [facility] RBC 3.57(L) 3.90 - 5.20 M/cumm [facility] MCV 99.4(H) 81.3 - 96.4 fL [facility] MCH 31.7 27.1 - 33.3 pg [facility] MCHC 31.8(L) 32.3 - 35.7 g/dL [facility] RDW CV 15.7(H) 11.1 - 14.9 % [facility] RDW SD 57.3(H) 35.7 - 48.1 fL [facility] NRBC abs 0.00 0.00 - 0.01 K/cumm [facility] Blood 05/12/2024 10:2 6 AM NUTRITIONAL SERVICES DIRECTOR 05/12/2024 10:27 AM NUTRITIONAL SERVICES DIRECTOR us Eren Cr MD LAB BLOOD ORDERABLES Final Re sult [facility] Department of Laboratories [place], [place] [id number] * (ABNORMAL) Comprehensive metabolic panel (05/12/2024 10:26 AM NUTRITIONAL SERVICES DIRECTOR) [facility] Sodium 139 135 - 145 mmol/L Comment:Testing performed by : [address] [address] Potassium, pl 4.3 3.3 - 4.9 mmol/L [facility] Chloride 109 97 - 110 mmol/L [facility] CO2 22 22 - 32 mmol/L [facility] Anion gap 8 2 - 15 mmol/L [facility] BUN 20 6 - 25 mg/dL [facility] Creatinine 1.44(H) 0.60 - 1.10 mg/dL [facility] Glucose 89 70 - 199 mg/dL [facility] Comment: Interpretive Data Fasting glucose >/= 126 [...] 2022. Calcium 10.1 8.5 - 10.3 mg/dL [facility] Bilirubin, total 0.4 0.1 - 1.2 mg/dL [facility] Protein, pl 6.1(L) 6.5 - 8.5 g/dL [facility] Albumin 4.0 3.5 - 5.0 g/dL [facility] Alk phos 66 40 - 130 Units/L [facility] ALT 21 7 - 45 Units/L [facility] AST 38 10 - 45 Units/L [facility] Blood 05/12/2024 10:2 6 AM NUTRITIONAL SERVICES DIRECTOR 05/12/2024 10:27 AM NUTRITIONAL SERVICES DIRECTOR us Eren Cr MD LAB BLOOD ORDERABLES Final Re sult [facility] [place] [address] * Magnesium (05/12/2024 10:26 AM NUTRITIONAL SERVICES DIRECTOR) [facility] Magnesium 1.5 1.4 - 2.5 mg/dL Comment:Testing performed by : [facility], [address] [place] [address] Blood 05/12/2024 10:2 6 AM NUTRITIONAL SERVICES DIRECTOR 05/12/2024 10:27 AM NUTRITIONAL SERVICES DIRECTOR us Eren Cr MD LAB BLOOD ORDERABLES Final Re sult [facility] Department [place] [address] * (ABNORMAL) Lipid panel (05/12/2024 10:26 AM NUTRITIONAL SERVICES DIRECTOR) Cholesterol 128 30 - 199 mg/dL Comment: [...] on 2018. Triglycerides 133 <=149 mg/dL [facility] Comment: Interpretive Data Ages < or [...] revised on 2018. HDL 37(L) >=40 mg/dL [facility] Comment: Interpretive Data Ages < or = [...] on 2018. LDL, calculated 67 <=129 mg/dL [facility] Comment: Interpretive Data Ages < or = [...] Kai Schwarz et al. CAMILO Cardiol. 2020 May 1;5(5):540-548. doi: 10.1001/jamacardio.2020.0013 Current Interpretive Data was last revised on 2024. Non-HDL Cholesterol 91 mg/dL [facility] Comment: Interpretive Data Ages < or [...] last revised on 2018. Chol/HDL ratio 3 [facility] Blood 05/12/2024 10:2 6 AM NUTRITIONAL SERVICES DIRECTOR 05/12/2024 11:56 AM NUTRITIONAL SERVICES DIRECTOR us Eren Cr MD LAB BLOOD ORDERABLES Final Re sult Performing Organization Address City/[facility] Co de Phone Number [facility] Department [place] [address] * Phosphorus (05/12/2024 10:26 AM NUTRITIONAL SERVICES DIRECTOR) Phosphorus, pl 2.9 2.3 - 4.5 mg/dL Comment:Testing performed by : [facility], [address] [place] [address] Blood 05/12/2024 10:2 6 AM NUTRITIONAL SERVICES DIRECTOR 05/12/2024 10:27 AM NUTRITIONAL SERVICES DIRECTOR us Eren Cr MD LAB BLOOD ORDERABLES Final Re sult [facility] Department [place] [address] * (ABNORMAL) Vitamin D 25 hydroxy (05/12/2024 10:26 AM NUTRITIONAL SERVICES DIRECTOR) Vitamin D 25-OH 18(L) 30 - 80 ng/mL Blood 05/12/2024 10:2 6 AM NUTRITIONAL SERVICES DIRECTOR 05/12/2024 11:56 AM NUTRITIONAL SERVICES DIRECTOR Eren Cr MD LAB BLOOD ORDERABLES Final Re sult [facility] Department [place] [address] * (ABNORMAL) Chromogranin A (05/12/2024 10:26 AM NUTRITIONAL SERVICES DIRECTOR) Chromogranin A 4282(H) <93 ng/mL [facility] Comment: Impaired renal or hepatic function or treatment with proton pump inhibitors may result in artifactual elevations of Chromogranin A. ADDITIONAL INFORMATION The testing method is a homogeneous time-resolved immunofluorescent assay manufactured by [employer] and performed on the [employer] Kr[employer] Compact Plus. ? Values obtained with different [...] examination and other findings. Test Performed by: [address] [address] Mines Inspector: Carley Tony Ph.D.; CLIA# [id number] Blood 05/12/2024 10:2 6 AM NUTRITIONAL SERVICES DIRECTOR 05/12/2024 11:41 AM NUTRITIONAL SERVICES DIRECTOR Eren Cr MD LAB BLOOD ORDERABLES Final Re sult [facility] [place] [address] [facility] ref Lab documented in this encounter Visit Diagnoses Diagnosis Neuro-endocrine carcinoma (HCC) Other malignant neoplasm of unspecified site Neuroendocrine carcinoma (HCC) Other malignant neoplasm of unspecified site 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) Research study patient documented in this encounter Orders Lab Orders Without Results Count Last Ordered D ate First Ordered Date ONCBCN STUDY LAB 1 1 05/12/2024 Appointment Requests Count Last Ordered Date Fi rst Ordered Date ONCBCN LAB APPOINTMENT 1 05/12/2024 documented in this encounter Care Teams Electronics Scale Tester Relationship Specialty Start Date End Date Julio César Briseno MD PCP - General 10/01/16 Eren Cr MD Referring Physician Medical Oncology 11/25/18 Yohana Bowen MD Radiation Oncologist Radiation Oncology 11/25/18 Alejo Mi MD [address] [place] [address] Referring Physician Nephrology 03/07/23 documented as of this encounter
--- OUTSIDE RECORDS SUMMARY | 2024-06-25 22:05 | XMS_ITS | Encounter Summary ---
Author Organization [facility] Address [address] [place] [address] Phone Care Team Providers Care Hydraulic Engineer Name Role Phone Julio César Briseno MD Primary Care Provider Eren Cr MD Unavailable [phone] Yohana Bowen MD Unavailable Alejo Mi MD Unavailable [phone] Encounter Details Date Type Department Care Team (Late st Contact Info) Description 05/12/2024 Orders Only [facility] Oncology [address] [place] [address] Eren Cr MD [address] [place] [address] Social History Tobacco Use Types Packs/Day Years [...] on file Legal 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 Gender Identity Not on file Sexual Orientation Straight 02/19/2021 9: 29 AM CDT Occupation Industry Job Start Date Job End Date retired Not on file Not on file Not on file documented as of this encounter Plan of Treatment Not on file documented as of this encounter Visit Diagnoses Not on filedocumented in this encounter Care Teams Hydraulic Engineer Relationship Specialty Start Date End Date Julio César Briseno MD PCP - General 10/01/16 Eren Cr MD Referring Physician Medical Oncology 11/25/18 Yohana Bowen MD Radiation Oncologist Radiation Oncology 11/25/18 Alejo Mi MD [address] [place] [address] Referring Physician Nephrology 03/07/23 documented as of this encounter
--- OUTSIDE RECORDS SUMMARY | 2024-06-25 22:05 | XMS_ITS | Encounter Summary ---
Author Organization [facility] Healthcare Address [address] [place] [address] Care Team Providers Care Glove Turner Name Role Phone Julio César Briseno MD Primary Care Provider [phone] Eren Cr MD Unavailable [phone] Yohana Bowen MD Unavailable Alejo Mi MD Unavailable [phone] Reason for Visit * Reason Comments Port Draw * Episode Based Medications (Routine) - Closed Specialty Diagnoses / Procedures Referred By Evelyne t Referred To Contact Diagnoses Neuro-endocrine carcinoma (HCC) Procedures study [id number] phase III cabozantinib Eren Cr MD [address] [facility] [address] [place] [address] Phone: tel: fax: [facility] [address] [facility] Advanced Medicine 7th [place] [address] Phone: tel: Referral ID Status Reason Start Date Expiration Date Visits Re quested Visits Authorized [id number] Closed 06/21/2021 06/26/2024 1 99 Encounter Details Date Type Department Care Team (Latest Contact Info) Description 04/14/2024 10:00 AM CDT Clinical Support [facility] [address] [address] Neuro-endocrine carcinoma (HCC); Neuroendocrine carcinoma (HCC); Malignant [...] on file 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 Gender Identity Not on file Sexual Orientation Straight 02/19/2021 9: 29 AM CDT Occupation Industry Job Start Date Job End Date retired Not on file Not on file Not on file documented as of this encounter Plan of Treatment Not on file documented as of this encounter Procedures Procedure Name Priority Date/Time Associated Diagnosis Comments PROTEIN / CREATININE RATIO, URINE, RANDOM STAT 04/14/2024 10:40 AM CDT Neuro-endocrine carcinoma (HCC) EGFR STAT 04/14/2024 10:35 AM CDT Neuro-endocrine carcinoma (HCC) DIFFERENTIAL AUTO STAT 04/14/2024 10: 35 AM CDT Neuro-endocrine carcinoma (HCC) CHROMOGRANIN A Routine 04/14/2024 10:35 AM CDT 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) CBC WITH AUTO DIFFERENTIAL STAT 04/14/2024 10:35 AM CDT Neuro-endocrine carcinoma (HCC) VITAMIN D 25 HYDROXY Routine 04/14/2024 10:35 AM CDT 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) MANUAL DIFFERENTIAL STAT 04/14/2024 1 0:35 AM CDT Neuro-endocrine carcinoma (HCC) PHOSPHORUS STAT 04/14/2024 10:35 AM CDT Neuro-endocrine carcinoma (HCC) PHOSPHORUS Routine 04/14/2024 10:35 AM CDT 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) MAGNESIUM STAT 04/14/2024 10:35 AM CDT Neuro-endocrine carcinoma (HCC) LIPID PANEL Routine 04/14/2024 10:35 AM CDT 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) COMPREHENSIVE METABOLIC PANEL STAT 04/14/2024 10:35 AM CDT Neuro-endocrine carcinoma (HCC) documented in this encounter Results * Protein / creatinine ratio, urine, random (04/14/2024 10:40 AM CDT) Protein, ur, quant 25.2 mg/dL Comment: Interpretive Data No reference range established. Current interpretive data was last revised 2018. Creatinine Ur 178.7 mg/dL [facility] Comment: Interpretive Data No reference range established. Current interpretive data was last revised 2018. Protein/creatinin e ratio 141.0 0.0 - 180.0 mg/g CR [facility] Urine 04/14/2024 10:4 0 AM CDT 04/14/2024 11:52 AM CDT us Eren Cr MD LAB URINE ORDERABLES Final Re sult [facility] Department [place] [address] * (ABNORMAL) Manual Differential (04/14/2024 10:35 AM CDT) Differential Auto Neutrophil abs 2.7 1.5 - 6.5 K/cumm [facility] Comment:Testing performed by : [facility], [address] [facility] [address] Imm gran abs 0.0 0.0 - 0.1 K/cumm [facility] Lymphocyte abs 2.7 0.8 - 3.3 K/cumm [facility] Monocyte abs 1.3(H) 0.2 - 0.8 K/cumm [facility] Eosinophil abs 0.2 0.0 - 0.5 K/cumm [facility] Basophil abs 0.0 0.0 - 0.1 K/cumm [facility] Neutrophil pct 38.7 % [facility] Comment: Interpretive Data Percent cell count reference ranges are not reported, since discordance with absolute values may lead to misinterpretation of CBC data. Current Interpretive Data was last revised on 2017. Imm gran pct 0.3 % [facility] Comment: Interpretive Data Percent cell count reference ranges are not reported, since discordance with absolute values may lead to misinterpretation of CBC data. Current Interpretive Data was last revised on 2017. Lymphocyte pct 39.4 % [facility] Comment: Interpretive Data Percent cell count reference ranges are not reported, since discordance with absolute values may lead to misinterpretation of CBC data. Current Interpretive Data was last revised on 2017. Monocyte pct 18.5 % [facility] Comment: Interpretive Data Percent cell count reference ranges are not reported, since discordance with absolute values may lead to misinterpretation of CBC data. Current Interpretive Data was last revised on 2017. Eosinophil pct 2.8 % [facility] Comment: Interpretive Data Percent cell count reference ranges are not reported, since discordance with absolute values may lead to misinterpretation of CBC data. Current Interpretive Data was last revised on 2017. Basophil pct 0.3 % [facility] Comment: Interpretive Data Percent cell count reference ranges are not reported, since discordance with absolute values may lead to misinterpretation of CBC data. Current Interpretive Data was last revised on 2017. RBC morphology Present(A ) [facility] Anisocytosis Slight(A) [facility] Elliptocytes 3-7/HPF(A ) [facility] Platelet estimate Decreased (A) [facility] Blood 04/14/2024 10:3 5 AM CDT 04/14/2024 10:35 AM CDT us Eren Cr MD LAB BLOOD ORDERABLES Final Re sult [facility] Department [place] [address] * (ABNORMAL) eGFR (04/14/2024 10:35 AM CDT) [...] of Race in Diagnosing Kidney Disease, JASN 2021). The CKD-EPI equation should not be used for patients with unstable renal function and has not been validated in children and those over 70. Current interpretive data was last reviewed 2021. Blood 04/14/2024 10:3 5 AM CDT 04/14/2024 10:35 AM CDT Eren Cr MD LAB BLOOD ORDERABLES Final Re sult [facility] [place] [address] * (ABNORMAL) Differential, auto (04/14/2024 10:35 AM CDT) Neutrophil abs 2.7 1.5 - 6.5 K/cumm Comment:Testing performed by : [facility], [address] [place] [address] Imm gran abs 0.0 0.0 - 0.1 K/cumm [facility] Lymphocyte abs 2.7 0.8 - 3.3 K/cumm [facility] Monocyte abs 1.3(H) 0.2 - 0.8 K/cumm [facility] Eosinophil abs 0.2 0.0 - 0.5 K/cumm [facility] Basophil abs 0.0 0.0 - 0.1 K/cumm [facility] Neutrophil pct 38.7 % [facility] Comment: Interpretive Data Percent cell count reference ranges are not reported, since discordance with absolute values may lead to misinterpretation of CBC data. Current Interpretive Data was last revised on 2017. Imm gran pct 0.3 % [facility] Comment: Interpretive Data Percent cell count reference ranges are not reported, since discordance with absolute values may lead to misinterpretation of CBC data. Current Interpretive Data was last revised on 2017. Lymphocyte pct 39.4 % [facility] Comment: Interpretive Data Percent cell count reference ranges are not reported, since discordance with absolute values may lead to misinterpretation of CBC data. Current Interpretive Data was last revised on 2017. Monocyte pct 18.5 % [facility] Comment: Interpretive Data Percent cell count reference ranges are not reported, since discordance with absolute values may lead to misinterpretation of CBC data. Current Interpretive Data was last revised on 2017. Eosinophil pct 2.8 % [facility] Comment: Interpretive Data Percent cell count reference ranges are not reported, since discordance with absolute values may lead to misinterpretation of CBC data. Current Interpretive Data was last revised on 2017. Basophil pct 0.3 % [facility] Comment: Interpretive Data Percent cell count reference ranges are not reported, since discordance with absolute values may lead to misinterpretation of CBC data. Current Interpretive Data was last revised on 2017. Blood 04/14/2024 10:3 5 AM CDT 04/14/2024 10:35 AM CDT Eren Cr MD LAB BLOOD ORDERABLES Final Re sult [facility] [place] [address] * (ABNORMAL) CBC with auto differential (04/14/2024 10:35 AM CDT) WBC 6.8 3.8 - 9.9 K/cumm Comment:Testing performed by : [address] [address] Hgb 10.8(L) 11.9 - 15.5 g/dL [facility] Comment:Testing performed by : [address] [address] Hct 33.5(L) 35.6 - 45.5 % [facility] Comment:Testing performed by : [address] [address] Plt 117(L) 150 - 400 K/cumm [facility] Comment:Testing performed by : [address] [address] MPV 9.9 9.1 - 12.[address] [facility] RBC 3.42(L) 3.90 - 5.20 M/cumm [facility] MCV 98.0(H) 81.3 - 96.4 fL [facility] MCH 31.6 27.1 - 33.3 pg [facility] MCHC 32.2(L) 32.3 - 35.7 g/dL [facility] RDW CV 16.4(H) 11.1 - 14.9 % [facility] RDW SD 58.2(H) 35.7 - 48.1 fL [facility] NRBC abs 0.00 0.00 - 0.01 K/cumm [facility] Blood 04/14/2024 10:3 5 AM CDT 04/14/2024 10:35 AM CDT us Eren Cr MD LAB BLOOD ORDERABLES Final Re sult [facility] Department [place] [address] * (ABNORMAL) Comprehensive metabolic panel (04/14/2024 10:35 AM CDT) Pathologist [facility] Sodium 140 135 - 145 mmol/L Comment:Testing performed by : [facility], [address] [place] [address] Potassium, pl 4.6 3.3 - 4.9 mmol/L [facility] Chloride 111(H) 97 - 110 mmol/L [facility] CO2 24 22 - 32 mmol/L [facility] Anion gap 5 2 - 15 mmol/L [facility] BUN 16 6 - 25 mg/dL [facility] Creatinine 1.46(H) 0.60 - 1.10 mg/dL [facility] Glucose 96 70 - 199 mg/dL [facility] Comment: Interpretive Data Fasting glucose [...] 2022. Calcium 9.5 8.5 - 10.3 mg/dL [facility] Bilirubin, total 0.4 0.1 - 1.2 mg/dL [facility] Protein, pl 5.9(L) 6.5 - 8.5 g/dL [facility] Albumin 3.8 3.5 - 5.0 g/dL [facility] Alk phos 57 40 - 130 Units/L [facility] ALT 18 7 - 45 Units/L [facility] AST 32 10 - 45 Units/L [facility] Blood 04/14/2024 10:3 5 AM CDT 04/14/2024 10:35 AM CDT Eren Cr MD LAB BLOOD ORDERABLES Final Re sult Performing Organization Address [facility] Co de Phone Number [facility] Department [place] [address] * Magnesium (04/14/2024 10:35 AM CDT) Magnesium 1.5 1.4 - 2.5 mg/dL Comment:Testing performed by : [address] [address] Blood 04/14/2024 10:3 5 AM CDT 04/14/2024 10:35 AM CDT Eren Cr MD LAB BLOOD ORDERABLES Final Re sult Performing Organization Address [facility]/ZIP Co de Phone Number [facility] [address] * (ABNORMAL) Phosphorus (04/14/2024 10:35 AM CDT) Phosphorus, pl 1.9(L) 2.3 - 4.5 mg/dL Comment:Testing performed by : [facility], [address] [place] [address] Blood 04/14/2024 10:3 5 AM CDT 04/14/2024 10:35 AM CDT us Eren Cr MD LAB BLOOD ORDERABLES Final Re sult [facility] [place] [address] * Lipid panel (04/14/2024 10:35 AM CDT) [...] 2018. Triglycerides 130 <=149 mg/dL [facility] Comment: Interpretive Data Ages < or [...] revised on 2018. HDL 40 >=40 mg/dL [facility] Comment: Interpretive Data Ages < [...] on 2018. LDL, calculated 62 <=129 mg/dL [facility] Comment: Interpretive Data Ages < [...] revised on 2024. Non-HDL Cholesterol 85 mg/dL [facility] Comment: Interpretive Data Ages < [...] last revised on 2018. Chol/HDL ratio 3 [facility] Blood 04/14/2024 10:3 5 AM CDT 04/14/2024 11:52 AM CDT us Eren Cr MD LAB BLOOD ORDERABLES Final Re sult Performing Organization Address City/[facility] Co de Phone Number [facility] Department [place] [address] * (ABNORMAL) Vitamin D 25 hydroxy (04/14/2024 10:35 AM CDT) [facility] Vitamin D 25-OH 19(L) 30 - 80 ng/mL Blood 04/14/2024 10:3 5 AM CDT 04/14/2024 11:52 AM CDT Eren Cr MD LAB BLOOD ORDERABLES Final Re sult Performing Organization Address City/[facility] Co de Phone Number [facility] Department [place] [address] * (ABNORMAL) Phosphorus (04/14/2024 10:35 AM CDT) Pathologist [facility] Phosphorus, pl 2.0(L) 2.3 - 4.5 mg/dL Comment:Testing performed by : [facility], [address] [place] [address] Blood 04/14/2024 10:3 5 AM CDT 04/14/2024 10:35 AM CDT us Eren Cr MD LAB BLOOD ORDERABLES Final Re sult [facility] [place] [address] * (ABNORMAL) Chromogranin A (04/14/2024 10:35 AM CDT) [facility] Chromogranin A 2929(H) <93 ng/mL [facility] Comment: Impaired renal or hepatic function or treatment with proton pump inhibitors may result in artifactual elevations of Chromogranin A. ADDITIONAL INFORMATION The testing method is a homogeneous time-resolved immunofluorescent assay manufactured by [employer] and performed on the [employer] Compact Plus. ? Values obtained with different [...] examination and other findings. 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
--- OUTSIDE RECORDS SUMMARY | 2024-06-25 22:05 | XMS_ITS | Encounter Summary ---
Author Organization [facility] Address [address] [place] [address] Phone Care Team Providers Care Manager Web Name Role Phone Julio César Briseno MD Primary Care Provider Eren Cr MD Unavailable [phone] Yohana Bowen MD Unavailable Alejo Mi MD Unavailable [phone] Encounter Details Date Type Department Care Team (Late st Contact Info) Description 05/13/2024 Orders Only [facility] Oncology [address] [place] [address] Eren Cr MD [address] [place] [address] Neuroendocrine carcinoma (HCC) (Primary Dx); Malignant neoplasm [...] on file 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
--- OUTSIDE RECORDS SUMMARY | 2024-06-25 22:06 | XMS_ITS | Encounter Summary ---
Author Organization [facility] Address [address] [place] [address] Phone Care Team Providers Care Limited Radiology Technician Name Role Phone Julio César Briseno MD Primary Care Provider Eren Cr MD Unavailable [phone] Yohana Bowen MD Unavailable Alejo Mi MD Unavailable [phone] Encounter Details Date Type Department Care Team (Late st Contact Info) Description 01/17/2024 Telephone [facility] Nephrology [address] [facility] Advanced [address] 5th [place] [address] [place] [address] Xochitl Silvestre Social History Tobacco Use Types Packs/Day Years [...] on file 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 Pt reports she is feeling better. Pt did not have any other questions at this time. There is renal condraindication to this medication, and no interaction with cymbalta. I can't speakfor the oncologist, but if they want to reach out to them that's fine- Dr. Mi * Telephone Encounter - Xochitl Silvestre - 01/17/2024 3:41 PM CDT Pt's daughter called stated that pt is currently taking DULoxetine DR (CYMBALTA) 60 mg capsule, pt stated that we recently started her on CIPRO 500mg and PCP stated that we needed to make sure these medications together are approved. (Pt is currently taking both) Pt's daughter also stated that pt is involved in a study by Onc and has a list of antibiotics that pt would be able to take which is listed below. Please advise if medications are ok from renal standpoint and call pt's daughter when able. Thanks Josie Doxycycline(Dosage not suggested) Amoxicillin (Dosage not suggested) Augmentin (Dosage not suggested) documented in this encounter Plan of Treatment Not on file documented as of this encounter Visit Diagnoses Not on filedocumented in this encounter Care Teams Limited Radiology Technician Relationship Specialty Start Date End Date Julio César Briseno MD PCP - General 10/01/16 Eren Cr MD Referring Physician Medical Oncology 11/25/18 Yohana Bowen MD Radiation Oncologist Radiation Oncology 11/25/18 Alejo Mi MD [id number] [place] [address] Referring Physician Nephrology 03/07/23 documented as of this encounter
--- OUTSIDE RECORDS SUMMARY | 2024-06-25 22:06 | XMS_ITS | Encounter Summary ---
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) Procedures CT chest abdomen pelvis with contrast Eren Cr MD [address] [place] [address] Phone: tel: fax: [address] [address] Referral ID Status Reason Start Date Expiration Date Visits Re quested Visits Authorized [id number] Closed 01/17/2024 02/15/2025 1 1 Encounter Details Date Type Department Care Team (Late st Contact Info) Description 01/17/2024 Orders Only [facility] Oncology [address] [place] [address] Eren Cr MD [address] [facility] [address] [place] [address] Neuro-endocrine carcinoma (HCC) (Primary Dx); Malignant neoplasm [...] on file 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 ??Stable hepatic, omental, retroperitoneal gallito, and serosal metastases. 2. ??Stable 7 mm medial right lower lobe pulmonary nodule. Dictated by: Cipriano Davis MD The radiology attending physician has personally reviewed this study, and had reviewed and/or edited this written report and agrees with it. Electronically signed by: Cindy Llanes M.D. Narrative 02/12/2024 10:31 AM CDT EXAMINATION: CT of the chest, abdomen, and pelvis with intravenous contrast. 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 COMPARISON: CT dated 11/13/2023. FINDINGS: CHEST: Stable 7 mm medial right lower lobe pulmonary nodule (series 3 image 78). ??No new or enlarging pulmonary nodules. ??No pneumothorax or pleural effusion. Heart size is normal without pericardial effusion. ??Normal caliber intrathoracic aorta. 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 ??No supraclavicular, axillary, or mediastinal lymphadenopathy. ABDOMEN AND PELVIS: Unchanged multiple hypoattenuating liver lesions with peripheral enhancement. ??No new or enlarging hepatic lesions. ??Patent portal venous vasculature. ??Cholecystectomy. ??No intrahepatic or extra hepatic biliary ductal dilation. ??Stable scattered too small to characterize hypoattenuating lesions within the spleen. ??Normal adrenal glands and pancreas. ??Kidneys enhance symmetrically without hydronephrosis. ??Stable simple right renal cyst. ??Unchanged nonspecific bilateral perinephric stranding. Postsurgical changes of right hemicolectomy and left lower quadrant loop colostomy. ??Unchanged hyperenhancing serosa nodules of the sigmoid colon (series 2 image 246 and 250). ??Stable size of a hyperenhancing soft tissue vaginal cuff deposit. ??No evidence of bowel obstruction. ??Unchanged omental nodularity, for reference 13 mm omental nodule in the anterior abdomen (series 2 image 171). ??Stable mildly enlarged 1 cm aortocaval lymph node (series 2 image 197) with an unchanged adjacent irregular soft tissue nodule with a surgical clip. Normal urinary bladder. ??Hysterectomy. ??Stable urethral bulking agent. ??No ascites or free fluid pelvis. ??No organized fluid collection. ??No pneumoperitoneum. ??Normal caliber intra-abdominal aorta with scattered intra-abdominal vascular calcifications. No suspicious osseous lesions. Procedure Note Cindy Llanes MD - 02/12/2024 EXAMINATION: CT of the chest, abdomen, and pelvis with intravenous contrast. 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 COMPARISON: CT dated 11/13/2023. FINDINGS: CHEST: Stable 7 mm medial right lower lobe pulmonary nodule (series 3 image 78). No new or enlarging pulmonary nodules. No pneumothorax or pleural effusion. Heart size is normal without pericardial effusion. Normal caliber intrathoracic aorta. 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 No supraclavicular, axillary, or mediastinal lymphadenopathy. ABDOMEN AND PELVIS: Unchanged multiple hypoattenuating liver lesions with peripheral enhancement. No new or enlarging hepatic lesions. Patent portal venous vasculature. Cholecystectomy. No intrahepatic or extra hepatic biliary ductal dilation. Stable scattered too small to characterize hypoattenuating lesions within the spleen. Normal adrenal glands and pancreas. Kidneys enhance symmetrically without hydronephrosis. Stable simple right renal cyst. Unchanged nonspecific bilateral perinephric stranding. Postsurgical changes of right hemicolectomy and left lower quadrant loop colostomy. Unchanged hyperenhancing serosa nodules of the sigmoid colon (series 2 image 246 and 250). Stable size of a hyperenhancing soft tissue vaginal cuff deposit. No evidence of bowel obstruction. Unchanged omental nodularity, for reference 13 mm omental nodule in the anterior abdomen (series 2 image 171). Stable mildly enlarged 1 cm aortocaval lymph node (series 2 image 197) with an unchanged adjacent irregular soft tissue nodule with a surgical clip. Normal urinary bladder. Hysterectomy. Stable urethral bulking agent. No ascites or free fluid pelvis. No organized fluid collection. No pneumoperitoneum. Normal caliber intra-abdominal aorta with scattered intra-abdominal vascular calcifications. No suspicious osseous lesions. IMPRESSION: 1. Stable hepatic, omental, retroperitoneal gallito, and serosal metastases. 2. Stable 7 mm medial right lower lobe pulmonary nodule. Dictated by: Cipriano Davis MD The radiology attending physician has personally reviewed this study, and had reviewed and/or edited this written report and agrees with it. Electronically signed by: Cindy Llanes M.D. 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
--- OUTSIDE RECORDS SUMMARY | 2024-06-25 22:06 | XMS_ITS | Encounter Summary ---
Author Organization [facility] Address [address] [place] [address] Phone Care Team Providers Care Mortar Carrier Name Role Phone Julio César Briseno MD Primary Care Provider [phone] Eren Cr MD Unavailable Yohana Bowen MD Unavailable Alejo Mi MD Unavailable [phone] Encounter Details Date Type Department Care Team (Late st Contact Info) Description 03/17/2024 Orders Only [facility] Oncology [address] [place] [address] Eren Cr MD [address] [place] [address] Social History Tobacco Use Types Packs/Day Years [...] on file 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 Gender Identity Not on file Sexual Orientation Straight 02/19/2021 9: 29 AM CDT Occupation Industry Job Start Date Job End Date retired Not on file Not on file Not on file documented as of this encounter Plan of Treatment Not on file documented as of this encounter Visit Diagnoses Not on filedocumented in this encounter Care Teams Mortar Carrier Relationship Specialty Start Date End Date Julio César Briseno MD PCP - General 10/01/16 Eren Cr MD Referring Physician Medical Oncology 11/25/18 Yohana Bowen MD Radiation Oncologist Radiation Oncology 11/25/18 Alejo Mi MD [address] [place] [address] Referring Physician Nephrology 03/07/23 documented as of this encounter
--- OUTSIDE RECORDS SUMMARY | 2024-06-25 22:06 | XMS_ITS | Encounter Summary ---
Author Organization [facility] Address [address] [place] [address] Care Team Providers Care Pinsetter Mechanic Helper Name Role Phone Julio César Briseno MD Primary Care Provider [phone] Eren Cr MD Unavailable [phone] Yohana Bowen MD Unavailable Alejo Mi MD Unavailable [phone] Reason for Visit * Reason Comments Injections * Episode Based Medications (Routine) - Authorized Specialty Diagnoses / Procedures Referred By Contellen t Referred To Contact Oncology Diagnoses 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) Procedures [place] OCTREOTIDE INJECTION, DEPOT Octreotide 28 Day Cycles - Carcinoid Eren Cr MD [address] [place] [address] Phone: tel: fax: [address] [address] Phone: tel: fax: Referral ID Status Reason Start Date Expiration Date V isits Requested Visits Authorized [id number] Authorized 11/28/2017 02/05/2025 1 150 Encounter Details Date Type Department Care Team (Late st Contact Info) Description 02/18/2024 11:15 AM CDT Infusion [facility] [address] [facility] [place] [address] 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 La Chung is a 73 y.o. female who presents for the following injection: Octreotide and Xgeva. Nursing Assessment Nursing Assessment LOC: Alert, Awake Fatigue: Occassional Any falls since your last visit?: No Orientation: Oriented x4 Behavior: Calm Speech: Clear Language: No aphasia Vision: At baseline Peripheral Neuropathy: No Oral Mucosa Grade: Normal (0) Pt states has potential to be ?: No Shortness of Breath?: No Lungs auscultated PRN: No Pt is on oxygen?: No Cough: Absent Appetite: Fair Nausea/Vomiting: No (occasional, typically triggered by a smell) Diarrhea: Yes (colostomy) Constipation: No Swelling: No Encounter Vitals BP: 152/88 (02/18/2024 11:39 AM) Pulse: 64 (02/18/2024 11:39 AM) Resp: 16 (02/18/2024 11:39 AM) Temp: 36.5 ??C (97.7 ??F) (02/18/2024 11:39 AM) Temp src: Oral (02/18/2024 11:39 AM) SpO2: 95 % (02/18/2024 11:39 AM) Weight: 76.1 kg (167 lb 12.8 oz) (02/18/2024 11:39 AM) Patient: met treatment parameters La Chung tolerated injection well Discharge Plan Discharge instructions given to patient. Discharge Mode: Ambulatory Accompanied by: mal Augustine Discharged To: Home in stable condition. documented in this encounter Plan of Treatment [...] 120 mg 120 mg, subcutaneous, Once, On Sat02/18/24 at 1230, For 1 dose, Calcium level should be greater than 8 mg/dl Administer injection in upper arm, abdomen or upper thigh Refrigerate. 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 For IM intragluteal administration only- alternate gluteal sites. 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) Given 02/18/2024 12:54 PM CDT 30 mg Left Dorsogluteal/Butto ck documented in this encounter Orders Medications Ordered That Brett ht Not Have Been Administered Count Last Ordered Date First Ordered Date INV-[id number] cabozantinib (2017-08-122/[id number]) tablet 20 mg 1 02/18/2024 Nursing Count Last Ordered Date First Orde red Date ONCBCN NURSING COMMUNICATION [id number] 1 0 02/18/2024 PHYSICIAN COMMUNICATION ORDER 1 02/18/2024 Appointment Requests Count Last Ordered Date Fi rst Ordered Date ONCBCN INJECTION APPOINTMENT REQUEST 1 02/05 documented in this encounter Care Teams Pinsetter Mechanic Helper Relationship Specialty Start Date End Date Julio César Briseno MD PCP - General 10/01/16 Eren Cr MD Referring Physician Medical Oncology 11/25/18 Yohana Bowen MD Radiation Oncologist Radiation Oncology 11/25/18 Alejo Mi MD [address] [place] [address] Referring Physician Nephrology 03/07/23 documented as of this encounter
--- OUTSIDE RECORDS SUMMARY | 2024-06-25 22:06 | XMS_ITS | Encounter Summary ---
Author Organization [facility] Healthcare Address [address] [place] [address] Care Team Providers Care Educational Manager Name Role Phone Julio César Briseno MD Primary Care Provider [phone] Eren Cr MD Unavailable [phone] Yohana Bowen MD Unavailable Alejo Mi MD Unavailable [phone] Encounter Details Date Type Department Care Team (Latest Contact Info) Description 01/24/2024 2:00 PM CDT Clinical Support [facility] [address] [facility] 7th [place] [address] Neuro-endocrine carcinoma (HCC); Malignant neoplasm metastatic to [...] on file 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 73 m2 Comment: Interpretive Data [...] Current interpretive data was last reviewed 2021. Testing performed by: [facility], [address] [place] [phone] Blood 01/24/2024 2:16 PM CDT 01/24/2024 2:17 PM CDT us Blilie Raymundo CAFETERIA TABLE ATTENDANT LAB BLOOD ORDERABLES Final Resul t JASON BLACK [facility] Department [place] [address] * (ABNORMAL) Basic metabolic panel (01/24/2024 2:16 PM CDT) Sodium 137 135 - 145 mmol/L Comment:Testing performed by : [facility], [address] [place] [phone] Potassium, pl 3.9 3.3 - 4.9 mmol/L JASON BLACK Comment:Testing performed by : [facility], [address] [place] [phone] Chloride 107 97 - 110 mmol/L JASON BLACK Comment:Testing performed by : [facility], [address] [place] [phone] CO2 22 22 - 32 mmol/L JASON BLACK Comment:Testing performed by : [address] [address] Anion gap 9 2 - 15 mmol/L JASON BLACK Comment:Testing performed by : [address] [phone] BUN 20 6 - 25 mg/dL JASON BLACK Comment:Testing performed by : [facility], [address] [place] [phone] Creatinine 1.49(H) 0.60 - 1.10 mg/dL JASON BLACK Comment:Testing performed by : [facility], [address] [place] [phone] Glucose 135 70 - 199 mg/dL JASON BLACK Comment: Interpretive Data Fasting glucose >/= 126 [...] Current interpretive data was last revised 2022. Testing performed by: [facility], [address] [place] [phone] Calcium 9.4 8.5 - 10.3 mg/dL JASON [facility] Comment:Testing performed by : [facility], [address] [place] [phone] Blood 01/24/2024 2:16 PM CDT 01/24/2024 2:17 PM CDT us Billie Raymundo CAFETERIA TABLE ATTENDANT LAB BLOOD ORDERABLES Final Resul t JASON [facility] Department [place] [address] documented in this encounter Visit Diagnoses Diagnosis Neuro-endocrine carcinoma (HCC) Other malignant neoplasm of unspecified site 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
--- OUTSIDE RECORDS SUMMARY | 2024-06-25 22:06 | XMS_ITS | Encounter Summary ---
Author Organization [facility] Healthcare Address [address] [place] [address] Care Team Providers Care Pipe Bender Name Role Phone Julio César Briseno MD Primary Care Provider [phone] Eren Cr MD Unavailable [phone] Yohana Bowen MD Unavailable Alejo Mi MD Unavailable [phone] Reason for Visit * Reason Comments Injections * Episode Based Medications (Routine) - Authorized Specialty Diagnoses / Procedures Referred By Contellen t Referred To Contact Oncology Diagnoses 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) Procedures [place] OCTREOTIDE INJECTION, DEPOT Octreotide 28 Day Cycles - Carcinoid Eren Cr MD [address] [place] [address] Phone: tel: fax: [address] [address] Phone: tel: fax: Referral ID Status Reason Start Date Expiration Date V isits Requested Visits Authorized [id number] Authorized 11/28/2017 02/05/2025 1 150 Encounter Details Date Type Department Care Team (Late st Contact Info) Description 03/17/2024 12:30 PM CDT Infusion [facility] [address] [address] 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 Dx); Neuroendocrine carcinoma (HCC); Neuro-endocrine carcinoma (HCC); 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 Spoke with MD team, she has agreed now that she is actually vomiting to stay for IVFs and nausea medication. Transferredpatient back to POD for treatment. * Lu Hogan RN - 03/17/2024 12:30 PM CDT Oncology Nursing Note [facility] La Chung is a 73 y.o. female who presents for the following injection: Octreotide, and Xgeva. Nursing Assessment Nursing Assessment LOC: Alert, Awake Constitutional: Fatigue Fatigue: Occassional Any falls since your last visit?: No Orientation: Oriented x4 Behavior: Calm Speech: Clear Language: No aphasia Peripheral Neuropathy: No Oral Mucosa Grade: Normal (0) Pt states has potential to be ?: No Shortness of Breath?: No Pt is on oxygen?: No Cough: Absent Appetite: Poor Nausea/Vomiting: Yes Diarrhea: No Constipation: No Swelling: No Additional Notes: See nursing note- patient transfer to POD for treatment after vomiting started onarrival in lab. Encounter Vitals BP: 135/75 (03/17/2024 11:36 AM) Pulse: 75 (03/17/2024 11:36 AM) Resp: 17 (03/17/2024 11:36 AM) Temp: 36.9 ??C (98.4 ??F) (03/17/2024 11:36 AM) Temp src: Oral (03/17/2024 11:36 AM) SpO2: 98 % (03/17/2024 11:36 AM) Weight: 74.5 kg (164 lb 3.2 oz) (03/17/2024 11:36 AM) Patient: met treatment parameters La Chung tolerated injection well Discharge Plan Discharge instructions given to patient. Discharge Mode: Ambulatory Accompanied by: Self Discharged To: Home in stable condition. 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 Allow to stand 15 to 30 mins prior to useIndications:Neuro-end ocrine carcinoma (HCC),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) Given 03/17/2024 1:10 PM CDT 120 mg Left Lower Abdomen octreotide LAR (SandoSTATIN LAR) extended release intramuscular injection 30 mg 30 mg, intramuscular, Once, On Sat03/17/24 at 1245, For 1 dose, Refrigerate. For IM intragluteal administration only- alternate gluteal sites. 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) Given 03/17/2024 1:15 PM CDT 30 mg Right Dorsogluteal/But tock sodium chloride 0.9% bolus 1,000 mL 1,000 mL, intravenous, at 500 mL/hr, Administer over 2 Hours, Once, On Sat03/17/24 at 1345, For 1 doseIndications:Neuroend ocrine carcinoma (HCC),Dehydration New Bag 03/17/2024 1:42 PM CDT 1,000 mL 500 mL/hr documented in this encounter Orders Medications Ordered That Brett ht Not Have Been Administered Count Last Ordered Date First Ordered Date ondansetron (ZOFRAN) injection 8 mg 1 03/17 Nursing Count Last Ordered Date First Orde red Date ONCBCN NURSING COMMUNICATION [id number] 03/17 ONCBCN NURSING COMMUNICATION [id number] 1 0 03/17/2024 PHYSICIAN COMMUNICATION ORDER 1 03/17/2024 Appointment Requests Count Last Ordered Date Fi rst Ordered Date ONCBCN INJECTION APPOINTMENT REQUEST 1 03/08 documented in this encounter Care Teams Pipe Bender Relationship Specialty Start Date End Date Julio César Briseno MD PCP - General 10/01/16 Eren Cr MD Referring Physician Medical Oncology 11/25/18 Yohana Bowen MD Radiation Oncologist Radiation Oncology 11/25/18 Alejo Mi MD [address] [place] [address] Referring Physician Nephrology 03/07/23 documented as of this encounter
--- OUTSIDE RECORDS SUMMARY | 2024-06-25 22:06 | XMS_ITS | Encounter Summary ---
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 cabozantinib Eren Cr MD [address] [place] [address] Phone: tel: fax: [facility] [address] [facility] Advanced Medicine 7th [place] [address] Phone: tel: Referral ID Status Reason Start Date Expiration Date Visits Re quested Visits Authorized [id number] Closed 06/21/2021 06/26/2024 1 99 Encounter Details Date Type Department Care Team (Latest Contact Info) Description 02/18/2024 12:15 PM CDT Research Med Pick-Up/CTRU Electronic Gluer [address] [address] Neuro-endocrine carcinoma (HCC) Social History Tobacco Use Types [...] on file 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 Gender Identity Not on file Sexual Orientation [...] unspecified site documented in this encounter Orders Appointment Requests Count Last Ordered Date Fi rst Ordered Date ONCBCN TAKE HOME STUDY DRUG APPT 1 02/18/20 24 documented in this encounter Care Teams Athletic Instructor Relationship Specialty Start Date End Date Julio César Briseno MD PCP - General 10/01/16 Eren Cr MD Referring Physician Medical Oncology 11/25/18 Yohana Bowen MD Radiation Oncologist Radiation Oncology 11/25/18 Alejo Mi MD [address] [place] [address] Referring Physician Nephrology 03/07/23 documented as of this encounter
--- OUTSIDE RECORDS SUMMARY | 2024-06-25 22:06 | XMS_ITS | Encounter Summary ---
Author Organization [facility] Address [address] [place] [address] Phone Care Team Providers Care Burning Machine Operator Name Role Phone Julio César Briseno MD Primary Care Provider Eren Cr MD Unavailable [phone] Yohana Bowen MD Unavailable Alejo Mi MD Unavailable [phone] Encounter Details Date Type Department Care Team (Late st Contact Info) Description 03/17/2024 Orders Only [facility] Oncology [address] [place] [address] Eren Cr MD [address] [place] [address] Social History Tobacco Use Types Packs/Day Years [...] on file 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 Gender Identity Not on file Sexual Orientation Straight 02/19/2021 9: 29 AM CDT Occupation Industry Job Start Date Job End Date retired Not on file Not on file Not on file documented as of this encounter Plan of Treatment Not on file documented as of this encounter Visit Diagnoses Not on filedocumented in this encounter Care Teams Burning Machine Operator Relationship Specialty Start Date End Date Julio César Briseno MD PCP - General 10/01/16 Eren Cr MD Referring Physician Medical Oncology 11/25/18 Yohana Bowen MD Radiation Oncologist Radiation Oncology 11/25/18 Alejo Mi MD [address] [place] [address] Referring Physician Nephrology 03/07/23 documented as of this encounter
--- OUTSIDE RECORDS SUMMARY | 2024-06-25 22:06 | XMS_ITS | Encounter Summary ---
Author Organization [facility] [employer] [facility] Address [address] [place] [address] Phone Care Team Providers Care Strings Teacher Name Role Phone Julio César Briseno MD Primary Care Provider [phone] Eren Cr MD Unavailable [phone] Yohana Bowen MD Unavailable Alejo Mi MD Unavailable [phone] Encounter Details Date Type Department Care Team (Late st Contact Info) Description 03/04/2024 Telephone [facility] Bone Marrow Transplant [address] [facility] Advanced Medicine 7th [place], [place] [address] Sunshine George RN Social History Tobacco Use Types Packs/Day [...] on file 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 Gender Identity Not on file Sexual Orientation Straight 02/19/2021 9: 29 AM CDT Occupation Industry Job Start Date Job End Date retired Not on file Not on file Not on file documented as of this encounter Miscellaneous Notes * Telephone Encounter - Sunshine George RN - 03/04/2024 8:24 PM CDT Oncology After-Hours Outpatient Call Patient: La Chung 1950 Call date: 03/04/24 Caller: Shanell Chung Reason for Call: My mom has been vomiting and is very weak and dizzy and I think she may need fluids and was wondering if someone could come give her some fluids Spoke with Shanell, she was asking about taking her mom to [facility] for IVF. I let her know that they are closing now but def possible tomorrow. Pt was in background and able to answer all questions. Pt vomited once in the last 24hrs, just prior to call and has not taking any antiemetic. Pt vomited 2x in the 24hrs prior, no amtimeteics used. Pt notes that both times were right after she had taken her normal meds. Recommendation: I recommended pt take zofran now and prn as prescribed. PT thinks she also has compazine at home and if so, will take 1-2hrs after zofran if still nauseated. I advised pt to take antiemetic 30-60 minutes prior to taking her normal meds and to also note when she has last eaten relative to taking her meds so she can determine if maybe nausea is exacerbated by meds on an empty or full stomach. Family is going to reach out to Chuck with Dr Cr in am to see about getting scheduled forsome IVF. Pt and daughter verbalized understanding and agreeable to recommendations. Primary oncologist team updated via [employer]. Sunshine George, RN documented in this encounter Plan of Treatment Not on file documented as of this encounter Visit Diagnoses Not on filedocumented in this encounter Care Teams Strings Teacher Relationship Specialty Start Date End Date Julio César Briseno MD PCP - General 10/01/16 Eren Cr MD Referring Physician Medical Oncology 11/25/18 Yohana Bowen MD Radiation Oncologist Radiation Oncology 11/25/18 Alejo Mi MD [address] [place] [address] Referring Physician Nephrology 03/07/23 documented as of this encounter
--- OUTSIDE RECORDS SUMMARY | 2024-06-25 22:06 | XMS_ITS | Encounter Summary ---
Author Organization [facility] Healthcare Address [address] [place] [address] Care Team Providers Care Bulb Assembler Name Role Phone Julio César Briseno MD Primary Care Provider [phone] Eren Cr MD Unavailable [phone] Yohana Bowen MD Unavailable Alejo Mi MD Unavailable [phone] Reason for Visit * Reason Comments OP Infusion NS + antiemetic Encounter Details Date Type Department Care Team (Latest Contact Info) Description 03/05/2024 1:00 PM CDT - 03/05/2024 11:59 PM CDT Hospital Encounter [facility] Advanced Medicine ([facility]) [address] [place] [address] Hypophosphatemia (Primary Dx); Dehydration; Neuro-endocrine carcinoma (HCC) Discharge Disposition: Discharge to home [...] on file 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 Gender Identity Not on file Sexual Orientation Straight 02/19/2021 9: 29 AM CDT Occupation Industry Job Start Date Job End Date retired Not on file Not on file Not on file documented as of this encounter Last Filed Vital Signs Vital Sign Reading Time Taken Comments Blood Pressure 150/65 03/05/2024 3:00 PM CDT Pulse 68 03/05/2024 3:00 PM CDT Temperature 36.6 ??C (97.9 ??F) 03/05/2024 3:00 PM CD T Respiratory Rate 18 03/05/2024 3:00 PM CDT Oxygen Saturation 99% 03/05/2024 3:00 PM CDT Inhaled Oxygen Concentration - - Weight 72.4 kg (159 lb 9.6 oz) 03/05/2024 1:22 P M CDT Height - - Body Mass Index 28.27 01/24/2024 2:43 PM CDT documented in this encounter Discharge Instructions * Patient Instructions* Vivian Villar, [place] - 03/05/2024 1:00 PM CDT .After 4:30 PM during the week, on weekends and holidays, call [phone] and ask to have the Windows And Doors Installer Physician paged for you. Saturday through Saturday, 8 AM to 4:30 PM, call [phone] [facility] Oncology Physician at [facility] Medicine and ask for a member of your doctor's team. CALL YOUR DOCTOR RIGHT AWAY IF YOU HAVE: A temperature of 100.5 F or 38 C Shaking chills DO NOT take Tylenol, aspirin, or ibuprofen unless your doctor tells you to A hard time breathing - Shortness of breath at rest or after minimal exertion Vomiting that is not controlled by your anti-nausea medicine Nausea that prevents you from eating, drinking or taking medicine, and is not being controlled by your anti-nausea medicine Unusual or heavy bleeding Blood in urine, black or bloody stool, or nosebleeds Feeling confused or very sleepy - Weakness or dizziness Pain of increased intensity or development of new pain, including strong headaches CALL WITHIN 24 HOURS FOR: Pain or skin changes at the drug injection site Diarrhea for more than 2 days that is not controlled by anti diarrhea medicine Watery diarrhea, stomach cramps, or nausea that doesn't go away No bowel movement for 2 or more days Frequent and/or painful urinating Persistent cough or a cough producing yellow or green mucous Mouth sores Skin rash If you are unable to get your medicines at the pharmacy Avoid taking any non-prescription medicine without your doctor's approval documented in this encounter Medications at Time of Discharge amLODIPine (NORVASC) 5 mg tablet 09/25/2023 cholecalciferol (VITAMIN D-3) 1,000 unit Take 1 tablet/capsule (1,000 Units total) by mouth daily 90 tablet/capsul e 3 11/16/2022 denosumab (Xgeva) 120 mg/1.7 mL (70 mg/mL) injection Inject 1.7 mL (120 mg total) under the skin every 28 (twenty-eight) days levothyroxine (SYNTHROID) 100 mcg tabletIndications :Hypothyroidism, unspecified type Take 1 tablet (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) by mouth business strategy manager before breakfast 90 tablet 3 11/28/2023 lidocaine-priloca [...] every 30 (thirty) days Last dose 11/15/22 ostomy supplies misc Patient has colostomy and needs Cavilon 3M skin barrier film to manage. 20 each 6 09/21/2019 simvastatin (ZOCOR) 20 mg tablet Take 1 tablet (20 mg total) by mouth nightly 0.9 % sodium chloride ([facility] sodium chloride 0.9%) injectionIndicati ons:line care Infuse 10 mL into a venous catheter once a week On saturday 4 0.9 % sodium chloride (sodium chloride 0.9%) 0.9% infusion 05/22/2023 4 amoxicillin 500 mg capsule TAKE 4 CAPSULES BY MOUTH 1 HOUR BEFORE APPOINTMENT 01/27/2024 4 ascorbic acid, vitamin C, 500 mg capsuleIndication s:supplement Take 1 tablet by mouth business strategy manager before breakfast 07/04/2016 4 clotrimazole-beta methasone (LOTRISONE) cream Apply 1 Application topically daily as needed (rash) 4 coenzyme [id number] E 100-5 mg-unit capsuleIndication s:supplement Take 1 tablet by mouth business strategy manager before breakfast 4 diphenoxylate-atr opine (LOMOTIL) 2.5-0.025 [...] and 1 hour after each dose).?? Avoid [place]'s Wort, grapefruit products and [place] oranges while on treatment. placed on hold 09/26/22 for covid 01/29/2022 4 LORazepam (ATIVAN) 0.5 mg tabletIndications :MRI [...] tablet by mouth every morning 05/14/2019 4 ondansetron (ZOFRAN) 8 mg tabletIndications :Cancer Chemotherapy-Connie ronny Nausea and Vomiting Take 1 tablet (8 mg total) by mouth every 8 (eight) hours as needed for nausea or vomiting 90 tablet 1 02/07/2024 4 sodium chloride 0.9 % solutionIndicatio ns:hydration [...] or self care documented in this encounter Nursing Notes * Vivian Villar RN - 03/05/2024 1:00 PM CDT Pt presented to [facility] for IV hydration and antiemetic. PAC accessed with brisk blood return. Pt [id number] NS, 8mg zofran, tolerated well. VSS. PAC flushed and deaccessed per protocol. D/c to home in stable condition. 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 risk/VP CUSTOMER DEVELOPMENT ONC Fall Prevention Note: Patient did not qualify for high risk fall interventions today. However, RN still reviewed the fallprevention education pamphlet of Keeping You Safe: Fall Assessment and Prevention . Verbalized understanding of all discussed. Questions answered at this time. documented in this encounter Plan of Treatment Not on file documented as of this encounter Visit Diagnoses Diagnosis Hypophosphatemia- Primary Disorders of phosphorus metabolism Dehydration Neuro-endocrine carcinoma (HCC) Other malignant neoplasm of unspecified site documented in this encounter Administered Medications Inactive Administered Medications - up to 3 most recent administrations Medication Order MAR Action Action Date Dose Rate Site heparin 100 unit/mL injection 500 Units 500 Units (5 mL), IV flush, Once as needed, line care, Starting on Lydia 03/05/24 at 1311, Flush with Heparin immediately prior to de-accessing port.Indications:Hypophosph atemia Given 03/05/2024 3:01 PM CDT 500 Units ondansetron (ZOFRAN) injection 8 mg 8 mg, intravenous, Administer over 2 Minutes, Once as needed, nausea, vomiting, Starting on Lydia 03/05/24 at 1311, For 1 doseIndications:Hypophospha temia Given 03/05/2024 1:31 PM CDT 8 mg sodium chloride 0.9% bolus 1,000 mL 1,000 mL, intravenous, at 667 mL/hr, Administer over 90 Minutes, Once, On Lydia 03/05/24 at 1345, For 1 doseIndications:Hypophospha temia,Dehydration,Neuro-end ocrine carcinoma (HCC) New Bag 03/05/2024 1:27 PM CDT 1,000 mL 667 mL/h r documented in this encounter Orders Medications Ordered That Brett ht Not Have Been Administered Count Last Ordered Date First Ordered Date heparin 10 unit/mL flush 30 Units 1 024 sodium chloride 0.9% flush 10 mL 1 03/05/20 24 documented in this encounter Care Teams Bulb Assembler Relationship Specialty Start Date End Date Julio César Briseno MD PCP - General 10/01/16 Eren Cr MD Referring Physician Medical Oncology 11/25/18 Yohana Bowen MD Radiation Oncologist Radiation Oncology 11/25/18 Alejo Mi MD [address] [address] Referring Physician Nephrology 03/07/23 documented as of this encounter
--- OUTSIDE RECORDS SUMMARY | 2024-06-25 22:06 | XMS_ITS | Encounter Summary ---
Author Organization [facility] Address [address] [place] [address] Phone Care Team Providers Care Direct Chill Casting Operator Name Role Phone Julio César Briseno MD Primary Care Provider Eren Cr MD Unavailable [phone] Yohana Bowen MD Unavailable Alejo Mi MD Unavailable [phone] Encounter Details Date Type Department Care Team (Late st Contact Info) Description 01/21/2024 Orders Only [facility] Oncology [address] [place] [address] Eren Cr MD [address] [place] [address] Urinary tract infection with hematuria, site unspecified (Primary Dx) Social History Tobacco Use Types [...] on file 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 Specific gravity, ur 1.026 1.003 - 1.030 [facility] pH, urine 6.0 [facility] Comment: Interpretive Data ? Urine pH is affected by diet, medications, systemic acid-base disturbances, and renal tubular function. ??pH may affect urinary stone formation. ??For example, urine pH below 6.0 may help reduce the tendency for calcium phosphate stones and pH greater than 6.0 may reduce the tendency for uric acid stone formation. Source: [employer] Current Interpretive Data was last revised on 2017 Protein, ur ql 1+(A) Negative [facility] Glucose, ur ql Negative Negative [facility] Ketones, ur Negative Negative [facility] Bilirubin, ur Negative Negative [facility] Blood, ur Negative Negative [facility] Urobilinogen, ur <2.0 <2.0 mg/dL [facility] Nitrite, ur Negative Negative [facility] Leukocyte esterase, ur Negative Negative [facility] UA reflex comment Reflex to microscopic UA will be performed. [facility] Urine, clean voided 01/21/2024 11:58 AM CDT 01/21/2024 2:02 PM CDT Eren Cr MD LAB MICROBIOLOGY - GENERAL OR DERABLES Final Result [facility] Department of Laboratories [place], [place] [id number] documented in this encounter Visit Diagnoses Diagnosis Urinary tract infection with hematuria, site unspecified- Primary documented in this encounter Care Teams Direct Chill Casting Operator Relationship Specialty Start Date End Date Julio César Briseno MD PCP - General 10/01/16 Eren Cr MD Referring Physician Medical Oncology 11/25/18 Yohana Bowen MD Radiation Oncologist Radiation Oncology 11/25/18 Alejo Mi MD [address] [place] [address] Referring Physician Nephrology 03/07/23 documented as of this encounter
--- OUTSIDE RECORDS SUMMARY | 2024-06-25 22:06 | XMS_ITS | Encounter Summary ---
Author Organization [facility] Address [address] [place] [address] Phone Care Team Providers Care Architecture Faculty Member Name Role Phone Julio César Briseno MD Primary Care Provider [phone] Eren Cr MD Unavailable [phone] Yohana Bowen MD Unavailable Alejo Mi MD Unavailable [phone] Encounter Details Date Type Department Care Team (Late st Contact Info) Description 03/17/2024 Orders Only [facility] Oncology [address] [place] [address] Eren Cr MD [address] [place] [address] Social History Tobacco Use Types Packs/Day Years [...] on file 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 Gender Identity Not on file Sexual Orientation Straight 02/19/2021 9: 29 AM CDT Occupation Industry Job Start Date Job End Date retired Not on file Not on file Not on file documented as of this encounter Plan of Treatment Not on file documented as of this encounter Visit Diagnoses Not on filedocumented in this encounter Care Teams Architecture Faculty Member Relationship Specialty Start Date End Date Julio César Briseno MD PCP - General 10/01/16 Eren Cr MD Referring Physician Medical Oncology 11/25/18 Yohana Bowen MD Radiation Oncologist Radiation Oncology 11/25/18 Alejo Mi MD [address] [place] [address] Referring Physician Nephrology 03/07/23 documented as of this encounter
--- OUTSIDE RECORDS SUMMARY | 2024-06-25 22:06 | XMS_ITS | Encounter Summary ---
Author Organization [facility] Address [address] [place] [address] Phone Care Team Providers Care Senior Quality Control Technician Name Role Phone Julio César Briseno MD Primary Care Provider Eren Cr MD Unavailable [phone] Yohana Bowen MD Unavailable Alejo Mi MD Unavailable [phone] Encounter Details Date Type Department Care Team (Late st Contact Info) Description 03/17/2024 Orders Only [facility] Oncology [address] [place] [address] Eren Cr MD [address] [place] [address] Social History Tobacco Use Types Packs/Day Years [...] on file 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 Gender Identity Not on file Sexual Orientation Straight 02/19/2021 9: 29 AM CDT Occupation Industry Job Start Date Job End Date retired Not on file Not on file Not on file documented as of this encounter Plan of Treatment Not on file documented as of this encounter Visit Diagnoses Not on filedocumented in this encounter Care Teams Senior Quality Control Technician Relationship Specialty Start Date End Date Julio César Briseno MD PCP - General 10/01/16 Eren Cr MD Referring Physician Medical Oncology 11/25/18 Yohana Bowen MD Radiation Oncologist Radiation Oncology 11/25/18 Alejo Mi MD [address] [place] [address] Referring Physician Nephrology 03/07/23 documented as of this encounter
--- OUTSIDE RECORDS SUMMARY | 2024-06-25 22:06 | XMS_ITS | Encounter Summary ---
Author Organization [facility] Address [address] [place] [address] Phone Care Team Providers Care Real Estate Loan Processor Name Role Phone Julio César Briseno MD Primary Care Provider [phone] Eren Cr MD Unavailable [phone] Yohana Bowen MD Unavailable Hyannis PortAlejo Ramos MD Unavailable [phone] Reason for Visit * Episode Based Medications (Routine) - Closed Specialty Diagnoses / Procedures Referred By Contac t Referred To Contact Diagnoses Neuro-endocrine carcinoma (HCC) Procedures study [id number] phase III cabozantinib Eren Cr MD [address] [facility] [address] [place] [address] Phone: tel: fax: [facility] at [facility] and [facility] [address] [facility] Advanced Medicine 7th [place] [address] Phone: tel: Referral ID Status Reason Start Date Expiration Date Visits Re quested Visits Authorized [id number] Closed 06/21/2021 06/26/2024 1 99 Encounter Details Date Type Department Care Team (Late st Contact Info) Description 01/21/2024 11:30 AM CDT Office Visit [facility] Oncology [address] [place] [address] Billie Raymundo NP [address] [place] [address] Neuro-endocrine carcinoma (HCC) (Primary Dx); 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); 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); Neuroendocrine carcinoma (HCC) Social History Tobacco Use [...] on file 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 Gender Identity Not on file Sexual Orientation Straight 02/19/2021 9: 29 AM CDT Occupation Industry Job Start Date Job End Date retired Not on file Not on file Not on file documented as of this encounter Last Filed Vital Signs Vital Sign Reading Time Taken Comments Blood Pressure 135/75 01/21/2024 11:55 AM CDT Pulse 95 01/21/2024 11:55 AM CDT Temperature 36.3 ??C (97.4 ??F) 01/21/2024 11:55 AM C DT Respiratory Rate 16 01/21/2024 11:55 AM CDT Oxygen Saturation 96% 01/21/2024 11:55 AM CDT Inhaled Oxygen Concentration - - Weight 72.7 kg (160 lb 4.8 oz) 01/21/2024 11:55 AM CDT Height - - Body Mass Index 28.4 01/14/2024 2:09 PM CDT documented in this encounter Progress Notes * Billie Raymundo NP - 01/21/2024 11:30 AM CDT Images from the original note were not included. MEDICAL ONCOLOGY OUTPATIENT ROV NOTE La Chung : 1950 DATE OF VISIT: 01/21/24 Oncology History Overview Note DIAGNOSIS: well differentiated [...] time, she also underwent right colectomy in [facility] OR by Dr. Greyson Reeves. [...] 12/25/2023 Cycle 31 Cabozantinib 20mg daily dose 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) Neuroendocrine tumor 01/06/2018 Initial Diagnosis Neuroendocrine tumor INTERVAL HISTORY: La Chung is a 73 y.o. 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 She was last seen in clinic on 12/24/2023 and was given 500ml NS for hydration. She received Cycle 31 cabozantinib (open label) on CABINET study 12/25/2023. S/p 3 days of cipro for Klebsiella PNA UTI, completed 01/13-01/16. Repeat UA today with no leukocyte esterase or nitrites, WBC 6-10, did not reflex to culture. Today, she is here with her and notes: - no fevers, chills, resolves dysuria, no blood in the urine - ostomy output not as liquidy today - no abdominal pain - feeling fine today - on days she throws up, it's usually when she returns for ROV. Otherwise no N/V at home. Current Outpatient Medications Medication Instructions 0.9 % sodium chloride ([facility] sodium chloride 0.9%) injection 10 mL, Weekly 0.9 % sodium chloride (sodium chloride 0.9%) 0.9% infusion amLODIPine (NORVASC) 5 mg tablet ascorbic acid, vitamin C, 500 mg capsule 1 tablet, Daily (early AM) cholecalciferol (VITAMIN D-3) 1,000 Units, oral, Daily ciprofloxacin (CIPRO) 500 mg, oral, 2 times daily clotrimazole-betamethasone (LOTRISONE) cream Apply 1 Application topically daily as needed (rash) coenzyme [id number] E 100-5 mg-unit capsule 1 tablet, Daily [...] heparin 100 unit/mL solution 5 mL, Weekly [facility] cabozantinib/placebo (/[id number]) 20 mg, oral, Nightly, Take on an empty stomach (no food for 2 hours before and 1 hour after each dose). Avoid Jas's Wort, grapefruit products and [place] oranges while on treatment. placed on hold 09/26/22 for covid levothyroxine (SYNTHROID) 100 mcg, oral, Daily (early AM) lidocaine-prilocaine (lidocaine-prilocaine) cream topical, As needed, Apply a generous amount topically to port site 1 hour prior to lab/treatment, do not rub in, and cover with non absorbant dressing loperamide HCl (IMODIUM A-D ORAL) 1 tablet, oral, Daily PRN, Patient takes 6-8 tablets a day. LORazepam (ATIVAN) 0.5 mg tablet Take 1 tablet 1 hour prior to MRI exam, may repeat dose if needed 15 minutes prior to MRI losartan (COZAAR) 25 mg tablet Take 1 tablet every day by oral route. montelukast (SINGULAIR) 10 mg, oral, As needed octreotide (SANDOSTATIN) 100 mcg, subcutaneous, Every 30 days, Last dose 11/15/22 olmesartan-hydrochlorothiazide (BENICAR HCT) 20-12.5 mg per tablet 1 tablet, Every morning ondansetron (ZOFRAN) 8 mg, oral, Every 8 hours PRN ostomy supplies misc Patient has colostomy and needs Cavilon 3M skin barrier film to manage. prochlorperazine (COMPAZINE) 10 mg, oral, Every 6 hours PRN simvastatin (ZOCOR) 20 mg, oral, Nightly sodium chloride 0.9 % solution 1,000 mL, Weekly triamcinolone (KENALOG) 0.1 % ointment Apply to itchy rash on hands twice daily until improved Objective ECOG PS: 1 VITALS: BP 135/75 (BP Location: Left arm) Pulse 95 Temp 36.3 ??C (97.4 ??F) (Oral) Resp 16 Wt 72.7 kg (160 lb 4.8 oz) SpO2 96% BMI 28.40 kg/m?? Physical Exam Vitals reviewed. Exam conducted with a building carpenter helper present. Constitutional: General: She is not in acute distress. Appearance: Normal appearance. She is not ill-appearing. HENT: Head: Normocephalic and atraumatic. Ears: Comments: Hearing aid in place Nose: Nose normal. Mouth/Throat: Mouth: Mucous membranes are moist. Pharynx: Oropharynx is clear. No oropharyngeal exudate or posterior oropharyngeal erythema. Eyes: General: No scleral icterus. Conjunctiva/sclera: Conjunctivae normal. Cardiovascular: Rate and Rhythm: Normal rate and regular rhythm. Heart sounds: Normal heart sounds. Pulmonary: Effort: Pulmonary effort is normal. No respiratory distress. Breath sounds: Normal breath sounds. Abdominal: General: Bowel sounds are normal. There is no distension. Palpations: Abdomen is soft. Tenderness: There is no abdominal tenderness. There is no guarding. Comments: Ostomy in place, stool is liquid Musculoskeletal: Cervical back: Normal range of motion. Right lower leg: No edema. Left lower leg: No edema. Skin: General: Skin is warm. Coloration: Skin is not jaundiced. Findings: No rash. Neurological: General: No focal deficit present. Mental Status: She is alert and oriented to person, place, and time. Gait: Gait normal. Psychiatric: Mood and Affect: Mood normal. Behavior: Behavior normal. LABORATORY: I personally reviewed all laboratories and discussed with patient during office visit, selected values included below. Hematology Lab History Latest Ref Rng & Units 11/13/2023 11:25 11/26/2023 11:20 12/24/2023 10:20 01/21/2024 11:44 Labs - Hematology WBC 3.8 - 9.9 K/cumm 3.5 5.0 4.1 5.0 Total Hb, POC 11.9 - 15.5 g/dL 11.0 10.7 12.3 12.8 Hct 35.6 - 45.5 % 33.1 33.5 37.9 39.3 Plt 150 - 400 K/cumm 102 101 114 118 Neutrophil abs 1.5 - 6.5 K/cumm 2.3 3.0 2.0 2.8 Lymphocytes, abs 0.8 - 3.3 K/cumm 0.5 1.2 1.5 1.4 Chem/LFT Lab History Latest Ref Rng & Units 11/13/2023 11:25 11/26/2023 11:20 12/24/2023 10:20 01/21/2024 11:44 Labs-Chem/LFT Sodium 135 - 145 mmol/L 139 137 140 139 Creatinine 0.60 - 1.10 mg/dL 1.03 1.21 1.32 1.53 Bilirubin, total 0.1 - 1.2 mg/dL 0.4 0.6 0.5 0.4 AST 10 - 45 Units/L 25 33 28 31 ALT 7 - 45 Units/L 16 20 17 19 Alk phos 40 - 130 Units/L 73 67 70 61 CrCl- Actual Body Weight (Cockcroft-Gault) 56.2 48.9 42.9 36.5 Tumor Marker History Latest Ref Rng & Units 10/29/2023 10:33 11/26/2023 11:20 12/24/2023 10:20 01/21/2024 11:44 Tumor Markers Chromogranin A <93 ng/mL 667 [id number] RADIOGRAPHIC/DIAGNOSTIC REVIEW: CT chest abdomen pelvis with contrast 11/13/2023 [...] - We reviewed her labs notable for Cr 1.53, normal electrolytes, stable PLT, CGA up 3301. - We discussed slight increased Cr today, offered IVF, however pt declines. She would like to push PO fluids. We will repeat BMP on Saturday. - We will plan to proceed with cycle 32 of CABINET study, will continue on 20 mg dosing of cabozantinib. Patient is agreeable. - She will return for follow up in 4 weeks per protocol. Scans 02/05 per protocol. 2. Bone metastases - No suspicious lesions on last CT. - On xgeva, last recived 12/24/2023. 3. Diarrhea - Has chronic diarrhea since diagnosis. 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 - Improved with Imodium when taken consistently. Today, her ostomy bag was filled with liquid stools. We discussed increasing her Imodium to 4mg QID. Discussed aiming for soft consistency. 4. Hypothyroidism with TSH elevated - Managed per endocrinology. 5. Vitamin D insufficiency/Deficiency - Vit D checked 06/11 16. Pt on ergocalciferol 33229 units weekly. -- she states she is still on this. - followed by nephrology 6. Renal function - Creatinine 1.53 - follows with Nephrology 7. Right TM [...] F/u Ophthalmology as needed 10. HTN - Started on losartan recently per her PCP. Amlodipine prn. - BP 135/75. She states she has also been taking amlodipine but not this morning. 11. ?Depression - No SI/HI. Notes feeling tired and has lack of caring. - Discussed possible referral to [facility] counseling -- she declines at this time. - Her family is very supportive. - Rec she follow up with her PCP My total encounter time on 01/21/2024 was 30 minutes which was spent in the activities documented inthe note. This includes time spent prior to the visit and after the visit in direct care of the patient. This time does not include time spent in any separately reportable services. Billie Raymundo NP In collaboration with Dr. Tayo Harmon to the Problem List Disease Status Documentation for mCODE Neoplastic Disease Neuroendocrine carcinoma (CMS/HCC) (HCC) Cancer Disease Assessment for mCODE Disease status: not evaluated Date of cancer disease status assessment: 01/21/24 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) Cancer [...] documented as of this encounter Results * Phosphorus (02/18/2024 9:45 AM CDT) Phosphorus, pl 2.6 2.3 - 4.5 mg/dL Comment:Testing performed by : [facility], [address] [place] [id number] Blood 02/18/2024 9:45 AM CDT 02/18/2024 10:00 AM CDT Eren Cr MD LAB BLOOD ORDERABLES Final Re sult Performing Organization Address [facility] Co de Phone Number [facility] Department [place] [address] * Magnesium (02/18/2024 9:45 AM CDT) Magnesium 1.5 1.4 - 2.5 mg/dL Comment:Testing performed by : [address] [address] Blood 02/18/2024 9:45 AM CDT 02/18/2024 10:00 AM CDT Eren Cr MD LAB BLOOD ORDERABLES Final Re sult Performing Organization Address [facility] de Phone Number [facility] Department [place] [address] * (ABNORMAL) Comprehensive metabolic panel (02/18/2024 9:45 AM CDT) Pathologist [facility] Sodium 140 135 - 145 mmol/L Comment:Testing performed by : [address] [address] Potassium, pl 4.3 3.3 - 4.9 mmol/L [facility] Chloride 109 97 - 110 mmol/L [facility] CO2 24 22 - 32 mmol/L [facility] Anion gap 7 2 - 15 mmol/L [facility] BUN 18 6 - 25 mg/dL [facility] Creatinine 1.17(H) 0.60 - 1.10 mg/dL [facility] Glucose 92 70 - 199 mg/dL [facility] Comment: Interpretive Data Fasting glucose [...] 2022. Calcium 9.6 8.5 - 10.3 mg/dL [facility] Bilirubin, total 0.4 0.1 - 1.2 mg/dL [facility] Protein, pl 5.9(L) 6.5 - 8.5 g/dL [facility] Albumin 4.0 3.5 - 5.0 g/dL [facility] Alk phos 54 40 - 130 Units/L [facility] ALT 20 7 - 45 Units/L [facility] AST 35 10 - 45 Units/L [facility] Blood 02/18/2024 9:45 AM CDT 02/18/2024 10:00 AM CDT Eren Cr MD LAB BLOOD ORDERABLES Final Re sult [facility] Department [place] [address] * (ABNORMAL) CBC with auto differential (02/18/2024 9:45 AM CDT) [facility] WBC 5.0 3.8 - 9.9 K/cumm Comment:Testing performed by : [address] [address] Hgb 10.8(L) 11.9 - 15.5 g/dL [facility] Comment:Testing performed by : [address] [address] Hct 33.4(L) 35.6 - 45.5 % [facility] Comment:Testing performed by : [address] [address] Plt 124(L) 150 - 400 K/cumm [facility] Comment:Testing performed by : [address] [address] MPV 10.2 9.1 - 12.3 fL [facility] RBC 3.46(L) 3.90 - 5.20 M/cumm [facility] MCV 96.5(H) 81.3 - 96.4 fL [facility] MCH 31.2 27.1 - 33.3 pg [facility] MCHC 32.3 32.3 - 35.7 g/dL [facility] RDW CV 17.2(H) 11.1 - 14.9 % [facility] RDW SD 61.1(H) 35.7 - 48.1 fL [facility] NRBC abs 0.00 0.00 - 0.01 K/cumm [facility] Blood 02/18/2024 9:45 AM CDT 02/18/2024 10:00 AM CDT us Eren Cr MD LAB BLOOD ORDERABLES Final Re sult [facility] Department [place] [address] * (ABNORMAL) Chromogranin A (02/18/2024 9:35 AM CDT) Chromogranin A 3200(H) <93 ng/mL [facility] Comment: Impaired renal or hepatic function or treatment with proton pump inhibitors may result in artifactual elevations of Chromogranin A. ADDITIONAL INFORMATION The testing method is a homogeneous time-resolved immunofluorescent assay manufactured by [employer] and performed on the [employer] Kryptor Compact Plus. ? Values obtained with [...] examination and other findings. Test Performed by: [facility] [address] [place] [address] Agency Service Coordinator: Carley Tony Ph.D.; CLIA# [id number] Blood 02/18/2024 9:35 AM CDT 02/18/2024 11:02 AM CDT Eren Cr MD LAB BLOOD ORDERAB[place] [address] [facility] * (ABNORMAL) Vitamin D 25 hydroxy (02/18/2024 9:35 AM CDT) Vitamin D 25-OH 21(L) 30 - 80 ng/mL Blood 02/18/2024 9:35 AM CDT 02/18/2024 11:03 AM CDT Eren Cr MD LAB BLOOD ORDERABLES Final Re sult Performing Organization Address [facility] Co de Phone Number [facility] [place] [address] * Phosphorus (02/18/2024 9:35 AM CDT) Phosphorus, pl 2.6 2.3 - 4.5 mg/dL Comment:Testing performed by : [facility], [address] [place] [address] Blood 02/18/2024 9:35 AM CDT 02/18/2024 9:59 AM CDT Eren Cr MD LAB BLOOD ORDERABLES Final Re sult Performing Organization Address [facility]/[place] [address] * Lipid panel (02/18/2024 9:35 AM CDT) [facility] Signature Cholesterol 141 30 - 199 mg/dL Comment: Interpretive Data [...] Data was last revised on 2018. Triglycerides 111 <=149 mg/dL [facility] Comment: Interpretive Data [...] Data was last revised on 2018. HDL 54 >=40 mg/dL [facility] Comment: Interpretive Data [...] was last revised on 2018. LDL, calculated 65 <=129 mg/dL [facility] Comment: Interpretive Data Ages < or = 19 years ??Acceptable: ? <110 mg/dL ??Borderline high: ??110-129 mg/dL ??High: ?>or= 130 mg/dL Ages > or = 20 years ??Optimal: ? <100 mg/dL ??Near optimal: ?100-129 mg/dL ??Borderline high: ?? 130-159 mg/dL ??High: ?>160 mg/dL Literature References: 1. Expert Panel on Integrated Guidelines for Cardiovascular Health and Risk Reduction in Children and Adolescents. Pediatrics 2011;128:S213 2. NCEP Expert Panel. Circulation 2004;110:227 Current Interpretive Data was last revised on 2018. Non-HDL Cholesterol 87 mg/dL [facility] Comment: Interpretive Data Ages < [...] last revised on 2018. Chol/HDL ratio 3 [facility] Blood 02/18/2024 9:35 AM CDT 02/18/2024 11:03 AM CDT Eren Cr MD LAB BLOOD ORDERABLES Final Re sult Performing Organization Address [facility] de Phone Number [facility] [place] [address] * Protein / creatinine ratio, urine, random (02/18/2024 9:30 AM CDT) Protein, ur, quant 23.7 mg/dL Comment: Interpretive Data No reference range established. Current interpretive data was last revised 2018. Creatinine Ur 138.5 mg/dL [facility] Comment: Interpretive Data No reference range established. Current interpretive data was last revised 2018. Protein/creatinin e ratio 171.1 0.0 - 180.0 mg/g CR [facility] Urine 02/18/2024 9:30 AM CDT 02/18/2024 11:03 AM CDT Eren Cr MD LAB URINE ORDERABLES Final Re sult Performing Organization Address [facility] de Phone Number [facility] [place] [address] * (ABNORMAL) Basic metabolic panel (01/24/2024 2:16 PM CDT) Pathologist [facility] Sodium 137 135 - 145 mmol/L Comment:Testing performed by : [facility], [address] [place] [phone] Potassium, pl 3.9 3.3 - 4.9 mmol/L [facility] Comment:Testing performed by : [facility], [address] [place] [phone] Chloride 107 97 - 110 mmol/L [facility] Comment:Testing performed by : [facility], [address] [place] [phone] CO2 22 22 - 32 mmol/L [facility] Comment:Testing performed by : [facility], [address] [place] [phone] Anion gap 9 2 - 15 mmol/L [facility] Comment:Testing performed by : [facility], [address] [place] [phone] BUN 20 6 - 25 mg/dL [facility] Comment:Testing performed by : [facility], [address] [place] [phone] Creatinine 1.49(H) 0.60 - 1.10 mg/dL [facility] Comment:Testing performed by : [facility], [address] [place] [phone] Glucose 135 70 - 199 mg/dL [facility] Comment: Interpretive Data Fasting glucose [...] was last revised 2022. Testing performed by: [facility], [address] [place] [phone] Calcium 9.4 8.5 - 10.3 mg/dL [facility] Comment:Testing performed by : 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) Neuroendocrine carcinoma (HCC) Other malignant neoplasm of unspecified site documented in this encounter Orders Appointment Requests Count Last Ordered Date Fi rst Ordered Date ONCBCN CLINIC APPOINTMENT REQUEST 2 024 01/21/2024 ONCBCN INJECTION APPOINTMENT REQUEST 1 02/05 ONCBCN LAB APPOINTMENT 2 02/18/202401/23 ONCBCN TAKE HOME STUDY DRUG APPT 1 02/18/20 24 documented in this encounter Care Teams Real Estate Loan Processor Relationship Specialty Start Date End Date Julio César Briseno MD PCP - General 10/01/16 Eren Cr MD Referring Physician Medical Oncology 11/25/18 Yohana Bowen MD Radiation Oncologist Radiation Oncology 11/25/18 Alejo Mi MD [address] [address] Referring Physician Nephrology 03/07/23 documented as of this encounter
--- OUTSIDE RECORDS SUMMARY | 2024-06-25 22:06 | XMS_ITS | Encounter Summary ---
Author Organization [facility] Address [address] [place] [address] Phone Care Team Providers Care Rack Production Worker Name Role Phone Julio César Briseno MD Primary Care Provider Eren Cr MD Unavailable [phone] Yohana Bowen MD Unavailable Alejo Mi MD Unavailable [phone] Encounter Details Date Type Department Care Team (Late st Contact Info) Description 03/17/2024 Orders Only [facility] Oncology [address] [place] [address] Eren Cr MD [address] [place] [address] Social History Tobacco Use Types Packs/Day Years [...] on file 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 Gender Identity Not on file Sexual Orientation Straight 02/19/2021 9: 29 AM CDT Occupation Industry Job Start Date Job End Date retired Not on file Not on file Not on file documented as of this encounter Plan of Treatment Not on file documented as of this encounter Visit Diagnoses Not on filedocumented in this encounter Care Teams Rack Production Worker Relationship Specialty Start Date End Date Julio César Briseno MD PCP - General 10/01/16 Eren Cr MD Referring Physician Medical Oncology 11/25/18 Yohana Bowen MD Radiation Oncologist Radiation Oncology 11/25/18 Alejo Mi MD [address] [place] [address] Referring Physician Nephrology 03/07/23 documented as of this encounter
--- OUTSIDE RECORDS SUMMARY | 2024-06-25 22:06 | XMS_ITS | Encounter Summary ---
Author Organization [facility] Healthcare Address [address] [place] [address] Care Team Providers Care Crime Specialist Name Role Phone Julio César Briseno MD Primary Care Provider [phone] Eren Cr MD Unavailable [phone] Yohana Bowen MD Unavailable Alejo Mi MD Unavailable [phone] Reason for Visit * Reason Comments Port Draw * Episode Based Medications (Routine) - Closed Specialty Diagnoses / Procedures Referred By Evelyne t Referred To Contact Diagnoses Neuro-endocrine carcinoma (HCC) Procedures study [id number] phase III cabozantinib Eren Cr MD [address] [facility] [address] [place] [address] Phone: tel: fax: [facility] at [facility] [address] [facility] Advanced Medicine 7th [place] [address] Phone: tel: Referral ID Status Reason Start Date Expiration Date Visits Re quested Visits Authorized [id number] Closed 06/21/2021 06/26/2024 1 99 Encounter Details Date Type Department Care Team (Latest Contact Info) Description 02/18/2024 9:30 AM CDT Clinical Support [address] [place] [address] Neuro-endocrine carcinoma (HCC); Neuroendocrine carcinoma (HCC); Malignant [...] on file 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 Gender Identity Not on file Sexual Orientation Straight 02/19/2021 9: 29 AM CDT Occupation Industry Job Start Date Job End Date retired Not on file Not on file Not on file documented as of this encounter Plan of Treatment Not on file documented as of this encounter Procedures Procedure Name Priority Date/Time Associated Diagnosis Comments IRON PROFILE W/ IBC Routine 02/18/2024 1 2:48 PM CDT Neuroendocrine carcinoma (HCC) FERRITIN Routine 02/18/2024 12:48 PM CDT Neuroendocrine carcinoma (HCC) EGFR STAT 02/18/2024 9:45 AM CDT Neuro-endocrine carcinoma (HCC) DIFFERENTIAL AUTO STAT 02/18/2024 9:4 5 AM CDT Neuro-endocrine carcinoma (HCC) CBC WITH AUTO DIFFERENTIAL STAT 02/18/2024 9:45 AM CDT Neuro-endocrine carcinoma (HCC) MANUAL DIFFERENTIAL STAT 02/18/2024 9 :45 AM CDT Neuro-endocrine carcinoma (HCC) PHOSPHORUS STAT 02/18/2024 9:45 AM CDT Neuro-endocrine carcinoma (HCC) MAGNESIUM STAT 02/18/2024 9:45 AM CDT Neuro-endocrine carcinoma (HCC) COMPREHENSIVE METABOLIC PANEL STAT 02/18/2024 9:45 AM CDT Neuro-endocrine carcinoma (HCC) CHROMOGRANIN A Routine 02/18/2024 9:35 AM CDT 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) VITAMIN D 25 HYDROXY Routine 02/18/2024 9:35 AM CDT 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) PHOSPHORUS Routine 02/18/2024 9:35 AM CDT 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) LIPID PANEL Routine 02/18/2024 9:35 AM CDT 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) PROTEIN / CREATININE RATIO, URINE, RANDOM STAT 02/18/2024 9:30 AM CDT Neuro-endocrine carcinoma (HCC) documented in this encounter Results * Iron profile w/ IBC (02/18/2024 12:48 PM CDT) Iron 74 35 - 145 mcg/dL TIBC 290 250 - 400 mcg/dL [facility] Transferrin saturation 26 20 - 50 % [facility] Blood 02/18/2024 12:4 8 PM CDT 02/18/2024 1:54 PM CDT Billie Raymundo DETASSELER LAB BLOOD ORDERABLES Final Resul t Performing Organization Address [facility] de Phone Number [facility] [place] [address] * Ferritin (02/18/2024 12:48 PM CDT) [facility] Ferritin 127 13 - 150 ng/mL Blood 02/18/2024 12:4 8 PM CDT 02/18/2024 1:54 PM CDT Billie Raymundo DETASSELER LAB BLOOD ORDERABLES Final Resul t Performing Organization Address [facility] [place] [address] * (ABNORMAL) Manual Differential (02/18/2024 9:45 AM CDT) [facility] Differential Auto RBC morphology Present(A ) [facility] Anisocytosis Slight(A) [facility] Platelet estimate Decreased (A) [facility] Blood 02/18/2024 9:45 AM CDT 02/18/2024 10:00 AM CDT us Eren Cr MD LAB BLOOD ORDERABLES Final Re sult Performing Organization Address [facility] de Phone Number [facility] [place] [address] * (ABNORMAL) eGFR (02/18/2024 9:45 AM CDT) [facility] eGFR 49(L) >=60 mL/min/1. 73 m2 Comment: Interpretive Data [...] interpretive data was last reviewed 2021. Blood 02/18/2024 9:45 AM CDT 02/18/2024 10:00 AM CDT us Eren Cr MD LAB BLOOD ORDERABLES Final Re sult [facility] [place] [address] * Differential, auto (02/18/2024 9:45 AM CDT) [facility] Neutrophil abs 2.2 1.5 - 6.5 K/cumm Comment:Testing performed by : [facility], [address] [place] [address] Imm gran abs 0.0 0.0 - 0.1 K/cumm [facility] Lymphocyte abs 2.2 0.8 - 3.3 K/cumm [facility] Monocyte abs 0.4 0.2 - 0.8 K/cumm [facility] Eosinophil abs 0.2 0.0 - 0.5 K/cumm [facility] Basophil abs 0.0 0.0 - 0.1 K/cumm [facility] Neutrophil pct 43.7 % [facility] Comment: Interpretive Data Percent cell count reference ranges are not reported, since discordance with absolute values may lead to misinterpretation of CBC data. Current Interpretive Data was last revised on 2017. Imm gran pct 0.4 % [facility] Comment: Interpretive Data Percent cell count reference ranges are not reported, since discordance with absolute values may lead to misinterpretation of CBC data. Current Interpretive Data was last revised on 2017. Lymphocyte pct 43.1 % [facility] Comment: Interpretive Data Percent cell count reference ranges are not reported, since discordance with absolute values may lead to misinterpretation of CBC data. Current Interpretive Data was last revised on 2017. Monocyte pct 7.8 % [facility] Comment: Interpretive Data Percent cell count reference ranges are not reported, since discordance with absolute values may lead to misinterpretation of CBC data. Current Interpretive Data was last revised on 2017. Eosinophil pct 4.4 % [facility] Comment: Interpretive Data Percent cell count reference ranges are not reported, since discordance with absolute values may lead to misinterpretation of CBC data. Current Interpretive Data was last revised on 2017. Basophil pct 0.6 % [facility] Comment: Interpretive Data Percent cell count reference ranges are not reported, since discordance with absolute values may lead to misinterpretation of CBC data. Current Interpretive Data was last revised on 2017. Blood 02/18/2024 9:45 AM CDT 02/18/2024 10:00 AM CDT Eren Cr MD LAB BLOOD ORDERABLES Final Re sult [facility] Department of Laboratories [place], [place] [address] * (ABNORMAL) CBC with auto differential (02/18/2024 9:45 AM CDT) Pathologist [facility] WBC 5.0 3.8 - 9.9 K/cumm Comment:Testing performed by : [facility], [address] [place] [address] Hgb 10.8(L) 11.9 - 15.5 g/dL [facility] Comment:Testing performed by : [facility], [address] [place] [address] Hct 33.4(L) 35.6 - 45.5 % [facility] Comment:Testing performed by : [facility], [address] [place] [address] Plt 124(L) 150 - 400 K/cumm [facility] Comment:Testing performed by : [facility], [address] [place] [address] MPV 10.2 9.1 - 12.3 fL [facility] RBC 3.46(L) 3.90 - 5.20 M/cumm [facility] MCV 96.5(H) 81.3 - 96.4 fL [facility] MCH 31.2 27.1 - 33.3 pg [facility] MCHC 32.3 32.3 - 35.7 g/dL [facility] RDW CV 17.2(H) 11.1 - 14.9 % [facility] RDW SD 61.1(H) 35.7 - 48.1 fL [facility] NRBC abs 0.00 0.00 - 0.01 K/cumm [facility] Blood 02/18/2024 9:45 AM CDT 02/18/2024 10:00 AM CDT Eren Cr MD LAB BLOOD ORDERABLES Final Re sult [facility] Department [place] [address] * (ABNORMAL) Comprehensive metabolic panel (02/18/2024 9:45 AM CDT) Sodium 140 135 - 145 mmol/L Comment:Testing performed by : [address] [address] Potassium, pl 4.3 3.3 - 4.9 mmol/L [facility] Chloride 109 97 - 110 mmol/L [facility] CO2 24 22 - 32 mmol/L [facility] Anion gap 7 2 - 15 mmol/L [facility] BUN 18 6 - 25 mg/dL [facility] Creatinine 1.17(H) 0.60 - 1.10 mg/dL [facility] Glucose 92 70 - 199 mg/dL [facility] Comment: Interpretive Data Fasting glucose >/= [...] 2022. Calcium 9.6 8.5 - 10.3 mg/dL [facility] Bilirubin, total 0.4 0.1 - 1.2 mg/dL [facility] Protein, pl 5.9(L) 6.5 - 8.5 g/dL [facility] Albumin 4.0 3.5 - 5.0 g/dL [facility] Alk phos 54 40 - 130 Units/L [facility] ALT 20 7 - 45 Units/L [facility] AST 35 10 - 45 Units/L [facility] Blood 02/18/2024 9:45 AM CDT 02/18/2024 10:00 AM CDT Eren Cr MD LAB BLOOD ORDERABLES Final Re sult [facility] Department [place] [address] * Magnesium (02/18/2024 9:45 AM CDT) Pathologist [facility] Magnesium 1.5 1.4 - 2.5 mg/dL Comment:Testing performed by : [facility], [address] [place] [address] Blood 02/18/2024 9:45 AM CDT 02/18/2024 10:00 AM CDT Eren Cr MD LAB BLOOD ORDERABLES Final Re sult Performing Organization Address [facility] Co de Phone Number [facility] [place] [address] * Phosphorus (02/18/2024 9:45 AM CDT) Phosphorus, pl 2.6 2.3 - 4.5 mg/dL Comment:Testing performed by : [address] [address] Blood 02/18/2024 9:45 AM CDT 02/18/2024 10:00 AM CDT Eren Cr MD LAB BLOOD ORDERABLES Final Re sult Performing Organization Address [facility] [place] [address] * Lipid panel (02/18/2024 9:35 AM CDT) Cholesterol 141 30 - 199 mg/dL Comment: [...] revised on 2018. Triglycerides 111 <=149 mg/dL [facility] Comment: Interpretive Data Ages < or [...] revised on 2018. HDL 54 >=40 mg/dL [facility] Comment: Interpretive Data Ages < or [...] on 2018. LDL, calculated 65 <=129 mg/dL [facility] Comment: Interpretive Data Ages < or [...] revised on 2018. Non-HDL Cholesterol 87 mg/dL [facility] Comment: Interpretive Data Ages < or [...] last revised on 2018. Chol/HDL ratio 3 [facility] Blood 02/18/2024 9:35 AM CDT 02/18/2024 11:03 AM CDT Eren Cr MD LAB BLOOD ORDERABLES Final Re sult Performing Organization Address [facility] Co de Phone Number [facility] Department [place] [address] * Phosphorus (02/18/2024 9:35 AM CDT) Pathologist [facility] Phosphorus, pl 2.6 2.3 - 4.5 mg/dL Comment:Testing performed by : [facility], [address] [place] [address] Blood 02/18/2024 9:35 AM CDT 02/18/2024 9:59 AM CDT Eren Cr MD LAB BLOOD ORDERABLES Final Re sult [facility] Ibrahim [facility] Department [place] [address] * (ABNORMAL) Vitamin D 25 hydroxy (02/18/2024 9:35 AM CDT) Vitamin D 25-OH 21(L) 30 - 80 ng/mL Blood 02/18/2024 9:35 AM CDT 02/18/2024 11:03 AM CDT Eren Cr MD LAB BLOOD ORDERABLES Final Re sult Performing Organization Address [facility] Co de Phone Number JASON Ibrahmi [facility] [place] [address] * (ABNORMAL) Chromogranin A (02/18/2024 9:35 AM CDT) Pathologist [facility] Chromogranin A 3200(H) <93 ng/mL [facility] Comment: Impaired renal or hepatic function or treatment with proton pump inhibitors may result in artifactual elevations of Chromogranin A. ADDITIONAL INFORMATION The testing method is a homogeneous time-resolved immunofluorescent assay manufactured by [employer] and performed on the [employer] Kryptor Compact Plus. ? Values obtained with [...] examination and other findings. Test Performed by: [address] [address] Production Generalist: Carley Tony Ph.D.; CLIA# [id number] Blood 02/18/2024 9:35 AM CDT 02/18/2024 11:02 AM CDT Eren Cr MD LAB BLOOD ORDERABLES Final Re sult Performing Organization Address [facility] Phone Number [facility] [place] [address] [facility] * Protein / creatinine ratio, urine, random (02/18/2024 9:30 AM CDT) Protein, ur, quant 23.7 mg/dL Comment: Interpretive Data No reference range established. Current interpretive data was last revised 2018. Creatinine Ur 138.5 mg/dL [facility] Comment: Interpretive Data No reference range established. Current interpretive data was last revised 2018. Protein/creatinin e ratio 171.1 0.0 - 180.0 mg/g CR [facility] Urine 02/18/2024 9:30 AM CDT 02/18/2024 11:03 AM CDT Eren Cr MD LAB URINE ORDERABLES Final Re sult Performing Organization Address 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
--- OUTSIDE RECORDS SUMMARY | 2024-06-25 22:06 | XMS_ITS | Encounter Summary ---
Author Organization [facility] Healthcare Address [address] [place] [address] Care Team Providers Care Professor Of Legal Studies Name Role Phone Julio César Briseno MD Primary Care Provider [phone] Eren Cr MD Unavailable [phone] Yohana Bowen MD Unavailable Alejo Mi MD Unavailable [phone] Reason for Visit * Episode Based Medications (Routine) - Closed Specialty Diagnoses / Procedures Referred By Evelyne bowman Referred To Contact Diagnoses Neuro-endocrine carcinoma (HCC) Procedures study [id number] phase III cabozantinib Eren Cr MD [address] [place] [address] Phone: tel: fax: [facility] at 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 Gender Identity Not on file Sexual Orientation [...] Ordered Date First Ordered Date [id number] cabozantinib (/[id number]) tablet 20 mg 1 01/21/2024 Appointment Requests Count Last Ordered Date Fi rst Ordered Date ONCBCN TAKE HOME STUDY DRUG APPT 1 01/21/20 24 documented in this encounter Care Teams Professor Of Legal Studies Relationship Specialty Start Date End Date Julio César Briseno MD PCP - General 10/01/16 Eren Cr MD Referring Physician Medical Oncology 11/25/18 Yohana Bowen MD Radiation Oncologist Radiation Oncology 11/25/18 Alejo Mi MD [address] [place] [address] Referring Physician Nephrology 03/07/23 documented as of this encounter
--- OUTSIDE RECORDS SUMMARY | 2024-06-25 22:06 | XMS_ITS | Encounter Summary ---
Author Organization [facility] Address [address] [place] [address] Phone Care Team Providers Care Senior Data Warehouse Developer Name Role Phone Julio César Briseno MD Primary Care Provider [phone] Eren Cr MD Unavailable [phone] Yohana Bowen MD Unavailable Alejo Mi MD Unavailable [phone] Encounter Details Date Type Department Care Team (Late st Contact Info) Description 03/05/2024 Orders Only [facility] [address] [place] [address] Eren Cr MD [address] [place] [address] Social History Tobacco Use Types Packs/Day Years [...] on file 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 Gender Identity Not on file Sexual Orientation Straight 02/19/2021 9: 29 AM CDT Occupation Industry Job Start Date Job End Date retired Not on file Not on file Not on file documented as of this encounter Plan of Treatment Not on file documented as of this encounter Visit Diagnoses Not on filedocumented in this encounter Care Teams Senior Data Warehouse Developer Relationship Specialty Start Date End Date Julio César Briseno MD PCP - General 10/01/16 Eren Cr MD Referring Physician Medical Oncology 11/25/18 Yohana Bowen MD Radiation Oncologist Radiation Oncology 11/25/18 Alejo Mi MD [address] [place] [address] Referring Physician Nephrology 03/07/23 documented as of this encounter
--- OUTSIDE RECORDS SUMMARY | 2024-06-25 22:06 | XMS_ITS | Encounter Summary ---
Author Organization [facility] Healthcare Address [address] [place] [address] Care Team Providers Care [employer] Systems Administrator Name Role Phone Julio César Briseno MD Primary Care Provider [phone] Eren Cr MD Unavailable [phone] Yohana Bowen MD Unavailable Alejo Mi MD Unavailable [phone] Reason for Visit * Episode Based Medications (Routine) - Closed Specialty Diagnoses / Procedures Referred By Evelyne bowman Referred To Contact Diagnoses Neuro-endocrine carcinoma (HCC) Procedures study [id number] phase III cabozantinib Eren Cr MD [address] [place] [address] Phone: tel: fax: [facility] at [facility] [address] [facility] Advanced Medicine 7th [place] [address] Phone: tel: Referral ID Status Reason Start Date Expiration Date Visits Re quested Visits Authorized [id number] Closed 06/21/2021 06/26/2024 1 99 Encounter Details Date Type Department Care Team (Latest Contact Info) Description 03/17/2024 1:00 PM CDT 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[employer] [address] Neuro-endocrine carcinoma (HCC) (Primary Dx) Social History [...] on file 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 Gender Identity Not on file Sexual [...] Ordered Date First Ordered Date [facility] cabozantinib (/[id number]) tablet 20 mg 1 03/17/2024 Appointment Requests Count Last Ordered Date Fi rst Ordered Date ONCBCN TAKE HOME STUDY DRUG APPT 1 03/17/20 24 documented in this encounter Care Teams [employer] Systems Administrator Relationship Specialty Start Date End Date Julio César Briseno MD PCP - General 10/01/16 Eren Cr MD Referring Physician Medical Oncology 11/25/18 Yohana Bowen MD Radiation Oncologist Radiation Oncology 11/25/18 Alejo Mi MD [address] [place] [address] Referring Physician Nephrology 03/07/23 documented as of this encounter
--- OUTSIDE RECORDS SUMMARY | 2024-06-25 22:06 | XMS_ITS | Encounter Summary ---
Author Organization [facility] Address [address] [place] [address] Phone Care Team Providers Care Regional Medical Director Name Role Phone Julio César Briseno MD Primary Care Provider [phone] Eren Cr MD Unavailable oYhana Bowen MD Unavailable Alejo Mi MD Unavailable [phone] Encounter Details Date Type Department Care Team (Latest Contact Info) Description 01/24/2024 3:30 PM CDT Office Visit [facility] Endocrinology Metabolism and Lipid [address] [facility] Advanced [facility] 13th [place] [address] [place] [id number] Leila Gaytan MD [address] [place] [address] 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); Vitamin D deficiency; High risk medication use Social History Tobacco Use Types Packs/Day Years [...] on file 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 Gender Identity Not on file Sexual Orientation Straight 02/19/2021 9: 29 AM CDT Occupation Industry Job Start Date Job End Date retired Not on file Not on file Not on file documented as of this encounter Last Filed Vital Signs Vital Sign Reading Time Taken Comments Blood Pressure 149/73 01/24/2024 2:43 PM CDT Pulse 89 01/24/2024 2:43 PM CDT Temperature 36.4 ??C (97.6 ??F) 01/24/2024 2:43 PM CD T Respiratory Rate - - Oxygen Saturation - - Inhaled Oxygen Concentration - - Weight 74.7 kg (164 lb 9.6 oz) 01/24/2024 2:43 P M CDT Height 160 cm (5' 3 ) 01/24/2024 2:43 PM CDT Body Mass Index 29.16 01/24/2024 2:43 PM CDT documented in this encounter Patient Instructions * Patient Instructions* Leila Gaytan MD - 01/24/2024 3:30 PM CDT - vitamin D 3 2000 international units daily - continue taking levothyroxine 100 mcg daily. If you forget one day, take two pills the next day. documented in this encounter Progress Notes * Leila Gaytan MD - 01/24/2024 3:30 PM CDT [facility] Patient: La Chung, 73 y.o. female (: 1950) PCP: Julio César Briseno MD (Referring: Julio César Briseno MD) Visit Date: 01/24/2024 La Chung was seen for follow up of hypothyroidism. Accompanied by daughter. HPI Initial history: Dr. Cr referred patient for management of elevated TSH. 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 Patient on Cabozantinib and Octreotide. Cabozantinib started in 2021, later developed hypothyroidism. TSH was elevated at a prior visit as she was having trouble remembering to take the levothyroxine. She has worked on leaving her thyroid medication by the bedside. She is now taking it consistently before breakfast. Her recent scans show stable disease. She remains on Cabozantinib Update: Currently taking levothyroxine 100 mcg daily. Sometimes forgets to take one day if her routine thatmorning is different. Was getting fluids for dehydration but developed edema. Vitamin D- ran out script She received Cycle 31 cabozantinib (open label) on CABINET study 12/25/2023. S/p 3 days of cipro for Klebsiella PNA UTI. History Past medical history, past surgical history, social history, and family history reviewed with patient and in Epic encounter. Past Medical History: Past Medical History: Diagnosis Date Arthritis Family [...] 09/2019 immunotherapy Status post radiation therapy 09/2019 Prior to Admission medications Medication Sig Start Date End Date Taking? 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 07/04/16 Yes Levon Kee MD cholecalciferol (VITAMIN D-3) 1,000 unit Take 1 tablet/capsule (1,000 Units total) by mouth daily Patient taking differently: Take 1 tablet/capsule (1,000 Units total) by mouth every morning 11/16/22 11/16/23 Yes Alejo Mi MD clotrimazole-betamethasone (LOTRISONE) cream Apply 1 Application topically daily as needed (rash) Yes Levon Kee MD coenzyme [id number] 100-5 mg-unit capsule Take 1 tablet by mouth retail service technician before breakfast Yes Levon Kee MD denosumab (Xgeva) 120 mg/1.7 mL (70 mg/mL) injection Inject 1.7 mL (120 mg total) under the skin every 28 (twenty-eight) days Yes Levon Kee MD diphenoxylate-atropine (LOMOTIL) 2.5-0.025 mg per tablet Take 1 tablet by mouth 4 (four) times a day as needed for diarrhea 02/14/21 Yes Eren Cr MD DULoxetine DR (CYMBALTA) 30 mg capsule Take 1 capsule (30 mg total) by mouth daily Patient taking differently: Take 1 capsule (30 mg total) by mouth every morning 04/24/19 Yes Laura Lopes MD fluticasone propionate (FLONASE) 50 mcg/actuation nasal spray Administer 2 sprays into each nostrildaily as needed for rhinitis or allergies Yes Levon Kee MD heparin 100 unit/mL solution Infuse 5 mL (500 Units total) into a venous catheter once a week Fluids every -Heparin to flush Yes Levon Kee MD [facility] cabozantinib/placebo (/[id number]) 20 mg tablet Take 1 tablet (20 mg total) by[place] nightly Take on an empty stomach (no food for 2 hours before and 1 hour after each dose). Avoid Jas's Wort, grapefruit products and Rindge oranges while on treatment. placed on hold 09/26/22 for covid 01/29/22 Yes Eren Cr MD levothyroxine (SYNTHROID) 88 mcg tablet Take 1 tablet (88 mcg total) by mouth retail service technician before breakfast Patient taking differently: Take 1 tablet (88 mcg total) by mouth retail service technician before breakfast 10/12/22 Yes Eren Cr MD lidocaine-prilocaine (lidocaine-prilocaine) cream Apply topically as needed [...] in, and cover with non absorbant dressing 09/19/21 Yes Eren Cr MD loperamide HCl (IMODIUM A-D ORAL) Take 1 tablet by mouth daily as needed (diarrhea) 11/23/20 Yes ProviderLevon MD LORazepam (ATIVAN) 0.5 mg tablet Take 1 tablet 1 hour prior to MRI exam, may repeat dose if needed 15 minutes prior to MRI Patient taking differently: Take 1 tablet (0.5 mg total) by mouth every 8 (eight) hours as needed for anxiety (MRI) Take 1 tablet 1 hour prior to MRI exam, may repeat dose if needed 15 minutes prior to MRI 08/21/21 Yes Eren Cr MD montelukast (SINGULAIR) 10 mg tablet Take 1 tablet (10 mg total) by mouth as needed (allergies) YesProviLevon chery MD octreotide (SandoSTATIN) 100 mcg/mL injection Inject 1 mL (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) under the skin every 30 (thirty) days Last dose 11/15/22 Yes Levon Kee MD olmesartan-hydrochlorothiazide (BENICAR HCT) 20-12.5 mg per tablet Take 1 tablet by mouth every morning 05/14/19 Yes ProviderLevon MD ondansetron (ZOFRAN) 8 mg tablet Take 1 tablet (8 mg total) by mouth every 8 (eight) hours as needed for nausea or vomiting 08/17/22 Yes Eren Cr MD ondansetron ODT (ZOFRAN-ODT) 8 mg disintegrating tablet Take 1 tablet (8 mg total) by mouth every 8(eight) hours as needed for nausea or vomiting 10/18/22 Yes Eren Cr MD ostomy supplies [facility] [place] has colostomy and needs Cavilon 3M skin barrier film to manage. 09/21/19 Yes Greyson Reeves MD simvastatin (ZOCOR) 20 mg tablet Take 1 tablet (20 mg total) by mouth nightly Yes Provider, MD Levon sodium chloride 0.9 % solution Infuse 1,000 mL into a venous catheter once a week Patient to [id number] of Normal Saline via CADD Coreas pump set at 300mL/Hr once weekly.- Saturday09/14/22 Yes Eren Cr MD triamcinolone (KENALOG) 0.1 % ointment Apply to itchy rash on hands twice daily until improved Patient taking differently: Apply 1 Application topically daily as needed for irritation or rash Apply to itchy rash on hands twice daily until improved 05/06/20 Yes Po Newberry MD PhD amLODIPine (NORVASC) 5 mg tablet Take 0.5 tablets (2.5 mg total) by mouth nightly Patient not taking: Reported on 03/06/2023 07/27/22 ProviderLevon MD ciprofloxacin-dexAMETHasone (CIPRODEX) otic suspension Administer 4 drops into the right ear 2 (two) times a day Begin 1 week post op 02/05/23 Nasim Rojas MD HYDROcodone-acetaminophen ([place]) 5-325 mg per tablet Take 1 tablet by mouth every 6 (six) hours asneeded for pain 02/05/23 Nasim Rojas MD prochlorperazine (COMPAZINE) 10 mg tablet Take 1 tablet (10 mg total) by mouth every 6 (six) hours as needed for nausea Patient taking differently: Take 1 tablet (10 mg total) by mouth every 6 (six) hours as needed for nausea or vomiting 03/23/22 11/21/22 Eren Cr MD Family History Problem Relation Age of [...] hyperthermia, no work up at this time Past Surgical History: Past Surgical History: Procedure Laterality Date APPENDECTOMY [...] REVISION 07/2019 Fulguration of parastomal hyperplasia TONSILLECTOMY 6 Tonsillectomy - (Added by TW Conv) TOTAL ABDOMINAL HYSTERECTOMY 1991 appendix removed during this procedure TOTAL KNEE ARTHROPLASTY Left 2014 Social History Tobacco Use Smoking status: Never Smokeless tobacco: Never Vaping Use Vaping status: Never Used Substance and Sexual Activity Alcohol use: Yes Alcohol/week: 1.0 standard drink of alcohol Types: 1 Shots of liquor per week Drug use: No Sexual activity: Defer Partners: Male control/protection: Post-menopausal Review of Systems Twelve point ROS reviewed and negative except as noted in HPI. All other systems negative. Vitals & Physical Exam Blood pressure 149/73, pulse 89, temperature 36.4 ??C (97.6 ??F), height 160 cm (5' 3 ), weight 74.7 kg (164 lb 9.6 oz). Estimated body mass index is 29.16 kg/m?? as calculated from the following: Height as of this encounter: 160 cm (5' 3 ). Weight as of this encounter: 74.7 kg (164 lb 9.6 oz). Physical exam: General: well nourished, cooperative, no apparent distress. HEENT: PERRL, EOMI, no proptosis/exophthalmos/lid lag, oral mucosa moist. Neck: supple, no LAD, no thyromegaly/nodules/bruit. Lungs: on room air, normal RR. Heart: RRR, no murmurs. Abdomen: soft, non-tender, non-distended, no masses, normal BS. Extremities: no peripheral edema, no cyanosis. Skin: warm, dry, no rashes. Neuro: alert, speech normal, ambulatory. Data Medications, labs, imaging, and diagnostics independently reviewed in Epic and commented on below. Allergies: Morphine, Ezetimibe-simvastatin, and Ramipril Medications Current Outpatient Medications Medication Sig Dispense Refill amLODIPine (NORVASC) 5 mg tablet cholecalciferol (VITAMIN D-3) 1,000 unit Take 1 tablet/capsule (1,000 Units total) by mouth daily (Patient taking differently: Take 1 tablet/capsule (1,000 Units total) by mouth every morning) 90 tablet/capsule 3 denosumab (Xgeva) 120 mg/1.7 mL (70 mg/mL) injection Inject 1.7 mL (120 mg total) under the skin every 28 (twenty-eight) days diphenoxylate-atropine (LOMOTIL) 2.5-0.025 mg per tablet Take 1 tablet by mouth 4 (four) times a day as needed for diarrhea [address] (CYMBALTA) 60 mg capsule 1 capsule (60 mg total) fluticasone propionate (FLONASE) 50 mcg/actuation nasal spray Administer 2 sprays into each nostrildaily as needed for rhinitis or allergies [id number] cabozantinib/placebo (/[id number]) 20 mg tablet Take 1 tablet (20 mg total) bymouth nightly Take on an empty stomach (no food for 2 hours before and 1 hour after each dose). Avoid Ackerly's Wort, grapefruit products and Rindge oranges while on treatment. placed on hold 09/26/22 for covid levothyroxine (SYNTHROID) 100 mcg tablet Take 1 tablet (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) by mouth retail service technician before breakfast 90 tablet 3 lidocaine-prilocaine (lidocaine-prilocaine) [...] dose 11/15/22 ondansetron (ZOFRAN) 8 mg tablet Take 1 tablet (8 mg total) by mouth every 8 (eight) hours as needed for nausea or vomiting 30 tablet 3 ostomy supplies misc Patient has colostomy and [...] by mouth nightly 0.9 % sodium chloride ([facility] sodium chloride 0.9%) injection Infuse 10 mL into a venous catheter once a week On saturday (Patient not taking: Reported on 01/14/2024) 0.9 % sodium chloride (sodium chloride 0.9%) 0.9% infusion (Patient not taking: Reported on 01/14/2024) ascorbic acid, vitamin C, 500 mg capsule Take 1 tablet by mouth retail service technician before breakfast (Patient not taking: Reported on 12/24/2023) clotrimazole-betamethasone (LOTRISONE) cream Apply 1 Application topically daily as needed (rash) (Patient not taking: Reported on 01/24/2024) coenzyme [id number] 100-5 mg-unit capsule Take 1 tablet by mouth retail service technician before breakfast (Patient not taking: Reported on 12/24/2023) ergocalciferol (VITAMIN D) 50,000 unit capsule Take 1 capsule (50,000 Units total) by mouth once a week for 12 doses (Patient not taking: Reported on 01/14/2024) 12 capsule 2 heparin 100 unit/mL solution Infuse 5 mL (500 Units total) into a venous catheter once a week Fluids every -Heparin to flush (Patient not taking: Reported on 12/24/2023) olmesartan-hydrochlorothiazide (BENICAR HCT) 20-12.5 mg per tablet Take 1 tablet by mouth every morning (Patient not taking: Reported on 12/24/2023) sodium chloride 0.9 % solution Infuse 1,000 mL into a venous catheter once a week Patient to [id number] of Normal Saline via CADD Coreas pump set at 300mL/Hr once weekly.- Saturday (Patient not taking: Reported on 01/14/2024) triamcinolone (KENALOG) 0.1 % ointment Apply to itchy rash on hands twice daily until improved (Patient not taking: Reported on 12/24/2023) 454 g 1 No current facility-administered medications for this visit. Facility-Administered Medications Ordered in Other Visits Medication Dose Route Frequency Provider Last Rate Last Admin [facility] cabozantinib (/[id number]) tablet 20 mg 20 mg oral Daily Raymundo, Billie, ORAL PATHOLOGIST L-arginine 1.25%/L-lysine 1.25% infusion 1,000 mL 1,000 mL intravenous Continuous Meagan Amaya MD No results found for: HGBA1C Lab Results Component Value Date LDLCALC 55 01/21/2024 CREATININE 1.49 (H) 01/24/2024 Lab Results Component Value Date TSH 6.46 (H) 12/24/2023 FREET4 1.38 09/11/2023 No results found for: THYROGLOBULI , THGABINT Lab Results Component Value Date CORTISOL 10.0 09/11/2023 ACTH 25.8 09/11/2023 No results found for: TESTOSTERONE , TESTOSTFREE Lab Results Component Value Date PTH 210 (H) 10/18/2022 CALCIUM 9.4 01/24/2024 CAION 5.86 (H) 04/11/2020 PHOS 2.3 01/21/2024 Lab Results Component Value Date GLUCOSE 135 01/24/2024 CALCIUM 9.4 01/24/2024 SODIUM 137 01/24/2024 POTASSIUM 3.9 01/24/2024 CO2 22 01/24/2024 CHLORIDE 107 01/24/2024 BUNSER 20 01/24/2024 CREATININE 1.49 (H) 01/24/2024 Lab Results Component Value Date ALT 19 01/21/2024 AST 31 01/21/2024 ALKPHOS 61 01/21/2024 BILITOT 0.4 01/21/2024 Lab Results Component Value Date WBC 5.0 01/21/2024 HGB 12.8 01/21/2024 HCT 39.3 01/21/2024 MCV 95.4 01/21/2024 LABPLAT 118 (L) 01/21/[address] chest abdomen pelvis with contrast Result Date: 03/01/2023 Narrative: EXAMINATION: Computed tomography of the chest, abdomen and pelvis with intravenous contrast HISTORY: Metastatic neuroendocrine cancer TECHNIQUE: Transaxial computed tomographic images of the chest, abdomen and pelvis were obtained with intravenous contrast according to the standard protocol after the uneventful administration of 100 mL Opti-Ray 350 intravenous contrast. COMPARISON: 12/13/2022, 09/05/2022, PET/CT 12/27/2020 FINDINGS: Chest: No suspicious pulmonary nodule. Increased right supraclavicular lymph node measuring 0.8 cm previously 0.5 cm series 2 image 9. Additional subcentimeter lymph nodes in the chest are unchanged in size. The heart size is upper limits of normal. Nopleural or pericardial effusion right internal jugular central venous port catheter tip terminates at the superior cavoatrial junction. Aberrant right subclavian artery. Abdomen/Pelvis: Multiple hepatic metastases are again seen and not significantly changed in size. The largest is in segment 8/4 Ameasuring 2.7 x 2.7 cm, unchanged series 2 image 120. Portal vein is patent. Cholecystectomy. The adrenal glands, pancreas are normal. Cysts are seen in the kidneys without hydronephrosis. Subcentimeter hypoattenuating splenic lesions are unchanged. A duodenal diverticulum is unchanged. Right hemicolectomy changes with a colostomy in the left lower quadrant and a parastomal hernia containing nonobstructed small bowel and mesenteric fat Urinary bladder is decompressed. No suspicious osseous lesion. The abdominal aorta is moderately atherosclerotic but not aneurysmal.. Multiple peritoneal deposits are similar to prior. For example a deposit in the pelvis along the vaginal cuff measures 2.8 x 2.4 cm, unchanged series 2 image 262. A peritoneal deposit tethering the sigmoid colon which is partially calcified is also unchanged measuring 1.5 cm series [address] correlate for previously mentioned osseous lesions on PET/CT 12/27/2020. Impression: 1. Stable hepatic metastases and peritoneal deposits. 2. Slightly increased size of indeterminate right supraclavicular lymph nodes. Recommend attention on followup. Dictated by: Jazmin Silva M.D. The radiology attending physician has personally reviewed this study, and had reviewed and/or edited this written report and agrees with it. Electronically signed by: Phoenix Mahoney M.D. 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 Initial - TSI<1.0, TPO <30 - TSH 6.46 (12/24/23) in the setting of some missed doses. - She was advised to continue taking levothyroxine 100 mcg daily. If you forget one day, Instructedto take two pills in the morning if she forgrot to take it the day prior. #High risk medication use From an endocrine perspective, Cabozantinib can be associated with hypercalcemia and adrenal insuffiencey. AI s usually seen when used in combination with Nivolumab which she is not on. - her calcium on prior BMPs has been largely normal. - No baseline ACTH and cortisol in the chart. Checked for reference (cortisol 10.0, ACTH 25.8 on 09/2023). She does not have symptoms of AI at this time. #Vitamin D deficiency Level 18 on 01/21/24 - start vitamin D 3 2000 international units daily All of the patient's questions were answered. The patient is in agreement with the proposed plan of care. Patient seen and plan discussed with Dr. Monson. Leila Gaytan MD Cosigned by Billie Monson MD at 02/04/2024 10:41 AM CDT Associated attestation - Billie Monson MD - 02/04/2024 10:41 AM CDT I have seen and examined the patient. I agree with the findings and plan of care as documented in the resident/fellow's note. documented in this encounter Plan of Treatment Not on file documented as of this encounter Visit Diagnoses Diagnosis Hypothyroidism due to medication- Primary Vitamin D deficiency High risk medication use documented in this encounter Care Teams Regional Medical Director Relationship Specialty Start Date End Date Julio César Briseno MD PCP - General 10/01/16 Eren Cr MD Referring Physician Medical Oncology 11/25/18 Yohana Bowen MD Radiation Oncologist Radiation Oncology 11/25/18 Alejo Mi MD [address] [place] [address] Referring Physician Nephrology 03/07/23 documented as of this encounter
--- OUTSIDE RECORDS SUMMARY | 2024-06-25 22:06 | XMS_ITS | Encounter Summary ---
Author Organization [facility] Address [address] [place] [address] Care Team Providers Care Edge Banding Off Bearer Name Role Phone Julio César Briseno MD Primary Care Provider [phone] Eren Cr MD Unavailable [phone] Yohana Bowen MD Unavailable Alejo Mi MD Unavailable [phone] Reason for Visit * Episode Based Medications (Routine) - Authorized Specialty Diagnoses / Procedures Referred By Contellen t Referred To Contact Oncology Diagnoses 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) Procedures [place] OCTREOTIDE INJECTION, DEPOT Octreotide 28 Day Cycles - Carcinoid Eren Cr MD [address] [facility] [address] [place] [address] Phone: tel: fax: [facility] [address] [place] [phone] Phone: tel: fax: Referral ID Status Reason Start Date Expiration Date V isits Requested Visits Authorized [id number] Authorized 11/28/2017 02/05/2025 1 150 Encounter Details Date Type Department Care Team (Late st Contact Info) Description 01/21/2024 12:30 PM CDT Infusion [facility] [address] [place] [address] 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 [...] on file 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 female who presents for the following injection: xgeva, octreotide. Nursing Assessment Nursing Assessment LOC: Alert, Awake Fatigue: Constant Any falls since your last visit?: No Orientation: Oriented x4 Behavior: Calm Speech: Clear Language: No aphasia Vision: At baseline Peripheral Neuropathy: No Oral Mucosa Grade: Normal (0) Pt states has potential to be ?: No Shortness of Breath?: No Lungs auscultated PRN: No Pt is on oxygen?: No Respiratory Effort Characteristics: Dyspnea exertion Cough: Absent Appetite: Fair, Poor Have You Recently Lost Weight Without Trying?: No Nausea/Vomiting: No Abdomen: Soft Diarrhea: Yes (colostomy) Constipation: No Last BM Date: 01/21/24 Skin Condition/Temp: Warm, Dry Swelling: No Enc Vitals BP: 135/75 (01/21/2024 11:55 AM) Pulse: 95 (01/21/2024 11:55 AM) Resp: 16 (01/21/2024 11:55 AM) Temp: 36.3 ??C (97.4 ??F) (01/21/2024 11:55 AM) Temp src: Oral (01/21/2024 11:55 AM) SpO2: 96 % (01/21/2024 11:55 AM) Weight: 72.7 kg (160 lb 4.8 oz) (01/21/2024 11:55 AM) Patient: met treatment parameters La Chung [...] 120 mg 120 mg, subcutaneous, Once, On Sat01/21/24 at 1345, For 1 dose, Calcium level should be greater than 8 mg/dl Administer injection in upper arm, abdomen or upper thigh Refrigerate. Allow to stand 15 to 30 mins prior to useIndications:Neuro-endoc rine carcinoma (HCC),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) Given 01/21/2024 1:23 PM CDT 120 mg Right Lower Abdomen octreotide LAR (SandoSTATIN LAR) extended release intramuscular injection 30 mg 30 mg, intramuscular, Once, On Tu01/21/24 at 1345, For 1 dose, Refrigerate. For IM intragluteal administration only- alternate gluteal sites. 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) Given 01/21/2024 1:23 PM CDT 30 mg Right Dorsogluteal/Butto ck documented in this encounter Orders Nursing Count Last Ordered Date First Orde red Date ONCBCN NURSING COMMUNICATION [id number] 1 0 01/21/2024 PHYSICIAN COMMUNICATION ORDER 1 01/21/2024 Appointment Requests Count Last Ordered Date Fi rst Ordered Date ONCBCN INJECTION APPOINTMENT REQUEST 1 01/05 documented in this encounter Care Teams Edge Banding Off Bearer Relationship Specialty Start Date End Date Julio César Briseno MD PCP - General 10/01/16 Eren Cr MD Referring Physician Medical Oncology 11/25/18 Yohana Bowen MD Radiation Oncologist Radiation Oncology 11/25/18 Alejo Mi MD [address] [address] Referring Physician Nephrology 03/07/23 documented as of this encounter
--- OUTSIDE RECORDS SUMMARY | 2024-06-25 22:06 | XMS_ITS | Encounter Summary ---
Author Organization [facility] Address [address] [place] [address] Phone Care Team Providers Care Adult And Pediatric Neurologist Name Role Phone Julio César Briseno MD Primary Care Provider [phone] Eren Cr MD Unavailable [phone] Yohana Bowen MD Unavailable [place] MD Unavailable [phone] Reason for Visit * Episode Based Medications (Routine) - Closed Specialty Diagnoses / Procedures Referred By Contac t Referred To Contact Diagnoses Neuro-endocrine carcinoma (HCC) Procedures study [id number] phase III cabozantinib Eren Cr MD [address] [facility] [address] [place] [address] Phone: tel: fax: [employer] [address] [facility] 7th [place] [address] Phone: tel: Referral ID Status Reason Start Date Expiration Date Visits Re quested Visits Authorized [id number] Closed 06/21/2021 06/26/2024 1 99 Encounter Details Date Type Department Care Team (Late st Contact Info) Description 03/17/2024 11:30 AM CDT Office Visit [facility] [address] [place] [address] Billie Raymundo NP [address] [place] [address] Neuro-endocrine carcinoma (HCC) (Primary Dx); 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); Neuroendocrine carcinoma (HCC) Social History Tobacco [...] on file Legal 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 Gender Identity Not on file Sexual Orientation Straight 02/19/2021 9: 29 AM CDT Occupation Industry Job Start Date Job End Date retired Not on file Not on file Not on file documented as of this encounter Last Filed Vital Signs Vital Sign Reading Time Taken Comments Blood Pressure 135/75 03/17/2024 11:36 AM CDT Pulse 75 03/17/2024 11:36 AM CDT Temperature 36.9 ??C (98.4 ??F) 03/17/2024 11:36 AM C DT Respiratory Rate 17 03/17/2024 11:36 AM CDT Oxygen Saturation 98% 03/17/2024 11:36 AM CDT Inhaled Oxygen Concentration - - Weight 74.5 kg (164 lb 3.2 oz) 03/17/2024 11:36 AM CDT Height - - Body Mass Index 29.09 01/24/2024 2:43 PM CDT documented in this encounter Progress Notes * Isidro Lee, CECILIA - 03/17/2024 11:30 AM CDT Images from the original note were not included. MEDICAL ONCOLOGY OUTPATIENT ROV NOTE La Chung : 1950 DATE OF VISIT: 03/17/24 Oncology History Overview Note DIAGNOSIS: well differentiated [...] time, she also underwent right colectomy in [facility] [place] by Dr. Greyson Reeves. 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 Her latest CT 02/12/2024 showed stable disease per RECIST. Today, she is here with her and notes: - continued intermittent nausea, that is well controlled with her antiemetics. - she stated she is having increased nausea today, but relates this to anxiety when coming here. - appetite and fluid intake is poor, due to foods not tasting good. Weight is stable. She is not currently supplementing with ensure or boost. - she reports no concerns with her ostomy output. No constipation or diarrhea. - her chronic shortness of breath on exertion remains unchanged. No chest pain or cough. - ongoing fatigue is stable, and she is able to remain active at home as long as she takes frequentbreaks. - otherwise, she denies any fever or chills. No headaches or change in vision. Denies any oral pain, skin lesions or bleeding. Current Outpatient Medications Medication Instructions 0.9 % sodium chloride ([facility] sodium chloride 0.9%) injection 10 mL, [...] Application topically daily as needed (rash) coenzyme [id number] E 100-5 mg-unit capsule 1 tablet, Daily [...] heparin 100 unit/mL solution 5 mL, Weekly INV-[facility] cabozantinib/placebo (/[id number]) 20 mg, oral, Nightly, Take on an empty stomach (no food for 2 hours before and 1 hour after each dose). Avoid Jas's Wort, grapefruit products and Foley oranges while on treatment. placed on hold [...] BP 135/75 (BP Location: Left arm) Pulse 75 Temp 36.9 ??C (98.4 ??F) (Oral) Resp 17 Wt 74.5 kg (164 lb 3.2 oz) SpO2 98% BMI 29.09 kg/m?? Physical Exam Constitutional: Appearance: Normal appearance. She is not ill-appearing. HENT: Head: Normocephalic. Eyes: General: Lids are normal. Cardiovascular: Rate and Rhythm: Normal rate and regular rhythm. Heart sounds: Normal heart sounds. Pulmonary: Effort: Pulmonary effort is normal. Breath sounds: Normal breath sounds. No decreased breath sounds, wheezing, rhonchi or rales. Abdominal: General: Abdomen is flat. Bowel sounds are normal. There is no distension. Palpations: Abdomen is soft. Tenderness: There is no abdominal tenderness. Musculoskeletal: Cervical back: Full passive range of motion without pain. Right lower leg: No edema. Left lower leg: No edema. Psychiatric: Behavior: Behavior is cooperative. LABORATORY: I personally reviewed all laboratories and discussed with patient during office visit, selected values included below. Hematology Lab History Latest Ref Rng & Units 12/24/2023 10:20 01/21/2024 11:44 02/18/2024 09:45 03/17/2024 11:16 Labs - Hematology WBC 3.8 - 9.9 K/cumm 4.1 5.0 5.0 4.2 Total Hb, POC 11.9 - 15.5 g/dL 12.3 12.8 10.8 10.9 Hct 35.6 - 45.5 % 37.9 39.3 33.4 33.6 Plt 150 - 400 K/cumm 114 118 124 102 Neutrophil abs 1.5 - 6.5 K/cumm 2.0 2.8 2.2 2.2 Lymphocytes, abs 0.8 - 3.3 K/cumm 1.5 1.4 2.2 1.3 Chem/LFT Lab History Latest Ref Rng & Units 01/21/2024 11:44 01/24/2024 14:16 02/18/2024 09:45 03/17/2024 11:16 Labs-Chem/LFT Sodium 135 - 145 mmol/L 139 137 140 137 Creatinine 0.60 - 1.10 mg/dL 1.53 1.49 1.17 1.34 Bilirubin, total 0.1 - 1.2 mg/dL 0.4 0.4 0.5 AST 10 - 45 Units/L 31 35 27 ALT 7 - 45 Units/L 19 20 16 Alk phos 40 - 130 Units/L 61 54 55 CrCl- Actual Body Weight (Cockcroft-Gault) 36.5 38.5 49.9 42.7 Tumor Marker History Latest Ref Rng & Units 11/26/2023 11:20 12/24/2023 10:20 01/21/2024 11:44 02/18/2024 09:35 Tumor Markers Chromogranin A <93 ng/mL 2279 1969 3301 3200 Tumor markers pending today. RADIOGRAPHIC/DIAGNOSTIC REVIEW: CT [...] disease progression. ASSESSMENT AND PLAN: Ms. La M Vivod is a 73 y.o. female with a [...] We reviewed her labs notable for Cr 1.34, Hgb 10.9, Plt 102. - We will plan to proceed with cycle 34 of CABINET study today, and she will continue on 20 mg dosing of cabozantinib. Patient is agreeable. - refused IV fluids and IV nausea meds today for increased nausea and poor fluid intake. - She will return for follow up in 4 weeks per protocol. 2. Bone metastases - No suspicious lesions on last CT. - On xgeva, due today. 3. Diarrhea - Has chronic diarrhea since diagnosis. - Suspect multifactorial in setting of NET and her medications. - Improved with Imodium when taken consistently. - Today, her ostomy bag has had normal output. 4. Hypothyroidism with TSH elevated - Managed per endocrinology. 5. Vitamin D insufficiency/Deficiency - followed by nephrology 6. Renal function - Creatinine 1.34 - follows with Nephrology 7. Right TM perforation - Follow up with ENT, s/p surgery. 8. Hyperparathyroidism - Calcium 9.6 today - May be secondary to CKD, denosumab use. - On vit d supplementation. - nephrology following. 9. Eye disorder, grade 1, watery eyes - Not a reported side effect of cabozantinib, appears unrelated at this time. - F/u Ophthalmology as needed 10. HTN - per her PCP 11. Depression/Anxiety - No SI/HI. Notes feeling tired and has lack of caring. - Discussed possible referral to [facility] counseling -- she declines at this time. - Her family is very supportive. - managed by her PCP She will call us in the interim for any questions, concerns, or worsening symptoms. She is agreeable with this plan of care. [facility] Division of Medical Oncology [employer] [facility] documented in this encounter Plan of Treatment Not on file documented as of this encounter Results * Protein / creatinine ratio, urine, random (04/14/2024 10:40 AM CDT) Protein, ur, quant 25.2 mg/dL Comment: Interpretive Data No reference range established. Current interpretive data was last revised 2018. Creatinine Ur 178.7 mg/dL [facility] Comment: Interpretive Data No reference range established. Current interpretive data was last revised 2018. Protein/creatinin e ratio 141.0 0.0 - 180.0 mg/g CR [facility] Urine 04/14/2024 10:4 0 AM CDT 04/14/2024 11:52 AM CDT Eren Cr MD LAB URINE ORDERABLES Final Re sult Performing Organization Address [facility] Co de Phone Number [facility] Department [place] [address] * (ABNORMAL) Phosphorus (04/14/2024 10:35 AM CDT) Phosphorus, pl 1.9(L) 2.3 - 4.5 mg/dL Comment:Testing performed by : [address] [address] Blood 04/14/2024 10:3 5 AM CDT 04/14/2024 10:35 AM CDT Eren Cr MD LAB BLOOD ORDERABLES Final Re sult Performing Organization Address [facility]/[place] [address] * Magnesium (04/14/2024 10:35 AM CDT) Magnesium 1.5 1.4 - 2.5 mg/dL Comment:Testing performed by : [address] [address] Blood 04/14/2024 10:3 5 AM CDT 04/14/2024 10:35 AM CDT us Eren Cr MD LAB BLOOD ORDERABLES Final Re sult [facility] Department [place] [address] * (ABNORMAL) Comprehensive metabolic panel (04/14/2024 10:35 AM CDT) Pathologist [facility] Sodium 140 135 - 145 mmol/L Comment:Testing performed by : [facility], [address] [place] [address] Potassium, pl 4.6 3.3 - 4.9 mmol/L [facility] Chloride 111(H) 97 - 110 mmol/L [facility] CO2 24 22 - 32 mmol/L [facility] Anion gap 5 2 - 15 mmol/L [facility] BUN 16 6 - 25 mg/dL [facility] Creatinine 1.46(H) 0.60 - 1.10 mg/dL [facility] Glucose 96 70 - 199 mg/dL [facility] [...] Calcium 9.5 8.5 - 10.3 mg/dL [facility] Bilirubin, total 0.4 0.1 - 1.2 mg/dL [facility] Protein, pl 5.9(L) 6.5 - 8.5 g/dL [facility] Albumin 3.8 3.5 - 5.0 g/dL [facility] Alk phos 57 40 - 130 Units/L [facility] ALT 18 7 - 45 Units/L [facility] AST 32 10 - 45 Units/L [facility] Blood 04/14/2024 10:3 5 AM CDT 04/14/2024 10:35 AM CDT Eren Cr MD LAB BLOOD ORDERABLES Final Re sult [facility] Department [place] [address] * (ABNORMAL) CBC with auto differential (04/14/2024 10:35 AM CDT) WBC 6.8 3.8 - 9.9 K/cumm Comment:Testing performed by : [address] [address] Hgb 10.8(L) 11.9 - 15.5 g/dL [facility] Comment:Testing performed by : [address] [address] Hct 33.5(L) 35.6 - 45.5 % [facility] Comment:Testing performed by : [address] [address] Plt 117(L) 150 - 400 K/cumm [facility] Comment:Testing performed by : [address] [address] MPV 9.9 9.1 - 12.3 fL [facility] RBC 3.42(L) 3.90 - 5.20 M/cumm [facility] MCV 98.0(H) 81.3 - 96.4 fL [facility] MCH 31.6 27.1 - 33.3 pg [facility] MCHC 32.2(L) 32.3 - 35.7 g/dL [facility] RDW CV 16.4(H) 11.1 - 14.9 % [facility] RDW SD 58.2(H) 35.7 - 48.1 fL [facility] NRBC abs 0.00 0.00 - 0.01 K/cumm [facility] Blood 04/14/2024 10:3 5 AM CDT 04/14/2024 10:35 AM CDT us Eren Cr MD LAB BLOOD ORDERABLES Final Re sult Performing Organization Address City/[facility] Co de Phone Number JASON Ibrahim [facility] Department [place] [address] * (ABNORMAL) Chromogranin A (04/14/2024 10:35 AM CDT) Chromogranin A 2929(H) <93 ng/mL [facility] ref [facility] Comment: Impaired renal or hepatic function or treatment with proton pump inhibitors may result in artifactual elevations of Chromogranin A. ADDITIONAL INFORMATION The testing method is a homogeneous time-resolved immunofluorescent assay manufactured by [employer] and performed on the [employer] Plus. ? Values obtained with different [...] examination and other findings. Test Performed by: [place] [id number] [employer]: Carley Tony Ph.D.; CLIA# [id number] Blood 04/14/2024 10:3 5 AM CDT 04/14/2024 11:52 AM CDT us Eren Cr MD LAB BLOOD ORDERABLES Final Re sult Performing Organization Address City/[facility]/ZIP Co de Phone Number JASON BLACK [facility] Department [place] [address] [facility] ref [facility] * (ABNORMAL) Vitamin D 25 hydroxy (04/14/2024 10:35 AM CDT) Pathologist [facility] Vitamin D 25-OH 19(L) 30 - 80 ng/mL Blood 04/14/2024 10:3 5 AM CDT 04/14/2024 11:52 AM CDT Eren Cr MD LAB BLOOD ORDERABLES Final Re sult Performing Organization Address [facility] [place] [address] * (ABNORMAL) Phosphorus (04/14/2024 10:35 AM CDT) [facility] Phosphorus, pl 2.0(L) 2.3 - 4.5 mg/dL Comment:Testing performed by : [facility], [address] [place] [id number] Blood 04/14/2024 10:3 5 AM CDT 04/14/2024 10:35 AM CDT Eren Cr MD LAB BLOOD ORDERABLES Final Re sult Performing Organization Address [facility] de Phone Number [facility] [place] [address] * Lipid panel (04/14/2024 10:35 AM CDT) [facility] Cholesterol 125 30 - 199 mg/dL Comment: [...] on 2018. Triglycerides 130 <=149 mg/dL [facility] Comment: Interpretive Data Ages < or [...] revised on 2018. HDL 40 >=40 mg/dL [facility] Comment: Interpretive Data Ages < or [...] on 2018. LDL, calculated 62 <=129 mg/dL [facility] Comment: [...] revised on 2024. Non-HDL Cholesterol 85 mg/dL [facility] Comment: Interpretive [...] ratio 3 [facility] Blood 04/14/2024 10:3 5 AM CDT 04/14/2024 11:52 AM CDT us Eren Cr MD LAB BLOOD ORDERABLES Final Re sult JASON BLACK [facility] Department [place] [address] documented in this encounter Visit Diagnoses Diagnosis Neuro-endocrine carcinoma (HCC)- Primary Other malignant neoplasm of unspecified site 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) Neuroendocrine carcinoma (HCC) Other malignant neoplasm of unspecified site documented in this encounter Orders Appointment Requests Count Last Ordered Date Fi rst Ordered Date ONCBCN CLINIC APPOINTMENT REQUEST 2 024 03/17/2024 ONCBCN INJECTION APPOINTMENT REQUEST 1 02/2024 ONCBCN LAB APPOINTMENT 1 04/14/2024 ONCBCN TAKE HOME STUDY DRUG APPT 1 04/14/20 24 documented in this encounter Care Teams Adult And Pediatric Neurologist Relationship Specialty Start Date End Date Julio César Briseno MD PCP - General 10/01/16 Eren rC MD Referring Physician Medical Oncology 11/25/18 Yohana Bowen MD Radiation Oncologist Radiation Oncology 11/25/18 Alejo Mi MD [address] [place] [address] Referring Physician Nephrology 03/07/23 documented as of this encounter
--- OUTSIDE RECORDS SUMMARY | 2024-06-25 22:06 | XMS_ITS | Encounter Summary ---
Author Organization [facility] Healthcare Address [address] [place] [address] Care Team Providers Care Abattoir Manager Name Role Phone Julio César Briseno MD Primary Care Provider [phone] Eren Cr MD Unavailable [phone] Yohana Bowen MD Unavailable Alejo Mi MD Unavailable [phone] Reason for Visit * Reason Comments Port Draw * Episode Based Medications (Routine) - Closed Specialty Diagnoses / Procedures Referred By Evelyne t Referred To Contact Diagnoses Neuro-endocrine carcinoma (HCC) Procedures study [id number] phase III cabozantinib Eren Cr MD [address] [facility] [address] [place] [address] Phone: tel: fax: 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); Urinary tract infection with hematuria, site unspecified Social History Tobacco Use Types Packs/Day Years [...] on file 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 Gender Identity Not on file Sexual Orientation Straight 02/19/2021 9: 29 AM CDT Occupation Industry Job Start Date Job End Date retired Not on file Not on file Not on file documented as of this encounter Plan of Treatment Not on file documented as of this encounter Procedures Procedure Name Priority Date/Time Associated Diagnosis Comments URINALYSIS AND REFLEX TO MICROSCOPIC AND CULTURE Routine 01/21/2024 11:58 AM CDT Urinary tract infection with hematuria, site unspecified URINALYSIS, MICROSCOPIC ONLY Routine 01/21/2024 11:58 AM CDT Urinary tract infection with hematuria, site unspecified EGFR STAT 01/21/2024 11:44 AM CDT Neuro-endocrine carcinoma (HCC) DIFFERENTIAL AUTO STAT 01/21/2024 11: 44 AM CDT Neuro-endocrine carcinoma (HCC) CHROMOGRANIN A Routine 01/21/2024 11:44 AM CDT 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) CBC WITH AUTO DIFFERENTIAL STAT 01/21/2024 11:44 AM CDT Neuro-endocrine carcinoma (HCC) VITAMIN D 25 HYDROXY Routine 01/21/2024 11:44 AM CDT 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) MANUAL DIFFERENTIAL STAT 01/21/2024 1 1:44 AM CDT Neuro-endocrine carcinoma (HCC) PHOSPHORUS STAT 01/21/2024 11:44 AM CDT Neuro-endocrine carcinoma (HCC) MAGNESIUM STAT 01/21/2024 11:44 AM CDT Neuro-endocrine carcinoma (HCC) LIPID PANEL Routine 01/21/2024 11:44 AM CDT 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) COMPREHENSIVE METABOLIC PANEL STAT 01/21/2024 11:44 AM CDT Neuro-endocrine carcinoma (HCC) documented in this encounter Results * (ABNORMAL) Urinalysis, microscopic only (01/21/2024 11:58 AM CDT) WBC, ur 6-10(A) 0 - 5 /HPF RBC, ur 0-2 0 - 2 /HPF [facility] Epithelial cells, squamous, ur 6-10(A) 0 - 5 /HPF [facility] Comment:Suggestive of contam ination. Consider recollection by clean catch. Mucous, ur Present(A) [facility] Hyaline casts, ur 1-5 0 - 10 /LPF [facility] Culture Reflex Comment Reflex conditions for urine culture (WBC >10) not met. [facility] Urine, clean voided 01/21/2024 11:58 AM CDT 01/21/2024 2:02 PM CDT Eren Cr MD LAB URINE ORDERABLES Final Re sult Performing Organization Address City/[facility]/ZIP Co de Phone Number JASON [facility] [place] [address] * (ABNORMAL) Urinalysis reflex to microscopic and culture Urine, clean voided (01/21/2024 11:58 AM CDT) Color, ur Yellow Yellow Clarity, ur Clear Clear [facility] Specific gravity, ur 1.026 1.003 - 1.030 [facility] pH, urine 6.0 [facility] Comment: Interpretive Data ? Urine pH is affected by diet, medications, systemic acid-base disturbances, and renal tubular function. ??pH may affect urinary stone formation. ??For example, urine pH below 6.0 may help reduce the tendency for calcium phosphate stones and pH greater than 6.0 may reduce the tendency for uric acid stone formation. Source: [facility] Current Interpretive Data was last revised on 2017 Protein, ur ql 1+(A) Negative [facility] Glucose, ur ql Negative Negative [facility] Ketones, ur Negative Negative [facility] Bilirubin, ur Negative Negative [facility] Blood, ur Negative Negative [facility] Urobilinogen, ur <2.0 <2.0 mg/dL [facility] Nitrite, ur Negative Negative [facility] Leukocyte esterase, ur Negative Negative [facility] UA reflex comment Reflex to microscopic UA will be performed. [facility] Urine, clean voided 01/21/2024 11:58 AM CDT 01/21/2024 2:02 PM CDT Eren Cr MD LAB MICROBIOLOGY - GENERAL OR DERABLES Final Result Performing Organization Address [facility]/ZIP Co de Phone Number [facility] Department [place] [address] * (ABNORMAL) Manual Differential (01/21/2024 11:44 AM CDT) Differential Auto RBC morphology Present(A ) [facility] Anisocytosis Slight(A) [facility] Platelet estimate Decreased (A) [facility] Blood 01/21/2024 11:4 4 AM CDT 01/21/2024 11:49 AM CDT us Eren Cr MD LAB BLOOD ORDERABLES Final Re sult [facility] [place] [address] * (ABNORMAL) eGFR (01/21/2024 11:44 AM CDT) eGFR 35(L) >=60 mL/min/1. 73 m2 Comment: Interpretive Data [...] interpretive data was last reviewed 2021. Blood 01/21/2024 11:4 4 AM CDT 01/21/2024 11:49 AM CDT Eren Cr MD LAB BLOOD ORDERABLES Final Re sult [facility] [place] [address] * Differential, auto (01/21/2024 11:44 AM CDT) Neutrophil abs 2.8 1.5 - 6.5 K/cumm Comment:Testing performed by : [facility], [address] [place] [address] Imm gran abs 0.0 0.0 - 0.1 K/cumm [facility] Lymphocyte abs 1.4 0.8 - 3.3 K/cumm [facility] Monocyte abs 0.5 0.2 - 0.8 K/cumm [facility] Eosinophil abs 0.2 0.0 - 0.5 K/cumm [facility] Basophil abs 0.0 0.0 - 0.1 K/cumm [facility] Neutrophil pct 56.4 % [facility] Comment: Interpretive Data Percent cell count reference ranges are not reported, since discordance with absolute values may lead to misinterpretation of CBC data. Current Interpretive Data was last revised on 2017. Imm gran pct 0.4 % [facility] Comment: Interpretive Data Percent cell count reference ranges are not reported, since discordance with absolute values may lead to misinterpretation of CBC data. Current Interpretive Data was last revised on 2017. Lymphocyte pct 27.5 % [facility] Comment: Interpretive Data Percent cell count reference ranges are not reported, since discordance with absolute values may lead to misinterpretation of CBC data. Current Interpretive Data was last revised on 2017. Monocyte pct 10.9 % [facility] Comment: Interpretive Data Percent cell count reference ranges are not reported, since discordance with absolute values may lead to misinterpretation of CBC data. Current Interpretive Data was last revised on 2017. Eosinophil pct 4.2 % [facility] Comment: Interpretive Data Percent cell count reference ranges are not reported, since discordance with absolute values may lead to misinterpretation of CBC data. Current Interpretive Data was last revised on 2017. Basophil pct 0.6 % [facility] Comment: Interpretive Data Percent cell count reference ranges are not reported, since discordance with absolute values may lead to misinterpretation of CBC data. Current Interpretive Data was last revised on 2017. Blood 01/21/2024 11:4 4 AM CDT 01/21/2024 11:44 AM CDT us Eren Cr MD LAB BLOOD ORDERABLES Final Re sult [facility] Department [place] [address] * Lipid panel (01/21/2024 11:44 AM CDT) Cholesterol 135 30 - 199 mg/dL Comment: [...] Data was last revised on 2018. Triglycerides 131 <=149 mg/dL [facility] Comment: Interpretive Data [...] on 2018. HDL 54 >=40 mg/dL [facility] Comment: Interpretive Data Ages < [...] was last revised on 2018. LDL, calculated 55 <=129 mg/dL [facility] Comment: Interpretive Data Ages < [...] was last revised on 2018. Non-HDL Cholesterol 81 mg/dL [facility] Comment: Interpretive Data Ages < [...] last revised on 2018. Chol/HDL ratio 3 [facility] Blood 01/21/2024 11:4 4 AM CDT 01/21/2024 2:02 PM CDT us Eren Cr MD LAB BLOOD ORDERABLES Final Re sult Performing Organization Address City/[facility]/ZIP Co de Phone Number [facility] Department [place] [address] * (ABNORMAL) Vitamin D 25 hydroxy (01/21/2024 11:44 AM CDT) Vitamin D 25-OH 18(L) 30 - 80 ng/mL Blood 01/21/2024 11:4 4 AM CDT 01/21/2024 2:02 PM CDT us Eren Cr MD LAB BLOOD ORDERABLES Final Re sult Performing Organization Address City/[facility] Co de Phone Number [facility] Department [place] [address] * (ABNORMAL) Chromogranin A (01/21/2024 11:44 AM CDT) Chromogranin A 3301(H) <93 ng/mL [facility] Comment: Impaired renal or hepatic function or treatment with proton pump inhibitors may result in artifactual elevations of Chromogranin A. ADDITIONAL INFORMATION The testing method is a homogeneous time-resolved immunofluorescent assay manufactured by [employer] and performed on the Venaxisor Compact Plus. ? Values obtained with different [...] examination and other findings. Test Performed by: [place] [address] Gas Meter Reader: Carley Tony Ph.D.; CLIA# [id number] Blood 01/21/2024 11:4 4 AM CDT 01/21/2024 2:59 PM CDT Eren Cr MD LAB BLOOD ORDERABLES Final Re sult [facility] [place] [address] [facility] * (ABNORMAL) CBC with auto differential (01/21/2024 11:44 AM CDT) WBC 5.0 3.8 - 9.9 K/cumm Comment:Testing performed by : [facility], [address] [place] [address] Hgb 12.8 11.9 - 15.5 g/dL [facility] Comment:Testing performed by : [facility], [address] [place] [address] Hct 39.3 35.6 - 45.5 % [facility] Comment:Testing performed by : [facility], [address] [place] [address] Plt 118(L) 150 - 400 K/cumm [facility] Comment:Testing performed by : [address] [address] MPV 9.8 9.1 - 12.3 fL [facility] RBC 4.12 3.90 - 5.20 M/cumm [facility] MCV 95.4 81.3 - 96.4 fL [facility] MCH 31.1 27.1 - 33.3 pg [facility] MCHC 32.6 32.3 - 35.7 g/dL [facility] RDW CV 15.9(H) 11.1 - 14.9 % [facility] RDW SD 55.3(H) 35.7 - 48.1 fL [facility] NRBC abs 0.00 0.00 - 0.01 K/cumm [facility] Blood 01/21/2024 11:4 4 AM CDT 01/21/2024 11:44 AM CDT Eren Cr MD LAB BLOOD ORDERABLES Final Re sult [facility] Department [place] [address] * (ABNORMAL) Comprehensive metabolic panel (01/21/2024 11:44 AM CDT) Pathologist [facility] Sodium 139 135 - 145 mmol/L Comment:Testing performed by : [address] [address] Potassium, pl 3.9 3.3 - 4.9 mmol/L [facility] Chloride 108 97 - 110 mmol/L [facility] CO2 24 22 - 32 mmol/L [facility] Anion gap 7 2 - 15 mmol/L [facility] BUN 18 6 - 25 mg/dL [facility] Creatinine 1.53(H) 0.60 - 1.10 mg/dL [facility] Glucose 93 70 - 199 mg/dL [facility] Comment: Interpretive Data Fasting glucose >/= [...] interpretive data was last revised 2022. Calcium 9.3 8.5 - 10.3 mg/dL [facility] Bilirubin, total 0.4 0.1 - 1.2 mg/dL [facility] Protein, pl 6.5 6.5 - 8.5 g/dL [facility] Albumin 4.1 3.5 - 5.0 g/dL [facility] Alk phos 61 40 - 130 Units/L [facility] ALT 19 7 - 45 Units/L [facility] AST 31 10 - 45 Units/L [facility] Blood 01/21/2024 11:4 4 AM CDT 01/21/2024 11:44 AM CDT Eren Cr MD LAB BLOOD ORDERABLES Final Re sult [facility] [place] [address] * Magnesium (01/21/2024 11:44 AM CDT) Pathologist [facility] Magnesium 1.7 1.4 - 2.5 mg/dL Comment:Testing performed by : [facility], [address] [place] [address] Blood 01/21/2024 11:4 4 AM CDT 01/21/2024 11:44 AM CDT Eren Cr MD LAB BLOOD ORDERABLES Final Re sult [facility] [place] [address] * Phosphorus (01/21/2024 11:44 AM CDT) Phosphorus, pl 2.3 2.3 - 4.5 mg/dL Comment:Testing performed by : [facility], [address] [place] [address] Blood 01/21/2024 11:4 4 AM CDT 01/21/2024 11:44 AM CDT us Eren Cr MD LAB BLOOD ORDERABLES Final Re sult Performing Organization Address City/[facility] Co de Phone Number [place] [address] documented in this encounter Visit Diagnoses Diagnosis Neuro-endocrine carcinoma (HCC) Other malignant neoplasm of unspecified site Neuroendocrine carcinoma (HCC) Other malignant neoplasm of unspecified site 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) Urinary tract infection with hematuria, site unspecified documented in this encounter Orders Appointment Requests Count Last Ordered Date Fi rst Ordered Date ONCBCN LAB APPOINTMENT 1 01/21/2024 documented in this encounter Care Teams Abattoir Manager Relationship Specialty Start Date End Date Julio César Briseno MD PCP - General 10/01/16 Eren Cr MD Referring Physician Medical Oncology 11/25/18 Yohana Bowen MD Radiation Oncologist Radiation Oncology 11/25/18 Alejo Mi MD [address] [place] [address] Referring Physician Nephrology 03/07/23 documented as of this encounter
--- OUTSIDE RECORDS SUMMARY | 2024-06-25 22:06 | XMS_ITS | Encounter Summary ---
Author Organization [facility] Address [address] [place] [address] Phone Care Team Providers Care Security Flex Utility Officer Name Role Phone Julio César Briseno MD Primary Care Provider [phone] Eren Cr MD Unavailable [phone] Yohana Bowen MD Unavailable [place] MD Unavailable [phone] Reason for Visit * Episode Based Medications (Routine) - Closed Specialty Diagnoses / Procedures Referred By Contac t Referred To Contact Diagnoses Neuro-endocrine carcinoma (HCC) Procedures study [id number] phase III cabozantinib Eren Cr MD [address] [facility] [address] [place] [address] Phone: tel: fax: [facility] [address] [facility] Advanced Medicine 7th [place] [address] Phone: tel: Referral ID Status Reason Start Date Expiration Date Visits Re quested Visits Authorized [id number] Closed 06/21/2021 06/26/2024 1 99 Encounter Details Date Type Department Care Team (Late st Contact Info) Description 02/18/2024 10:15 AM CDT Office Visit [facility] [address] [place] [address] Eren Cr MD [address] 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 Gender Identity Not on file Sexual Orientation Straight 02/19/2021 9: 29 AM CDT Occupation Industry Job Start Date Job End Date retired Not on file Not on file Not on file documented as of this encounter Last Filed Vital Signs Vital Sign Reading Time Taken Comments Blood Pressure 152/88 02/18/2024 11:39 AM CDT Pulse 64 02/18/2024 11:39 AM CDT Temperature 36.5 ??C (97.7 ??F) 02/18/2024 1 1:39 AM CDT Respiratory Rate 16 02/18/2024 11:3 9 AM CDT Oxygen Saturation 95% 02/18/2024 11: 39 AM CDT Inhaled Oxygen Concentration - - Weight 76.1 kg (167 lb 12.8 oz) 024 11:39 AM CDT Height - - Body Mass Index 29.72 01/24/2024 2:43 PM CDT documented in this encounter Progress Notes * Billie Raymundo, CECILIA - 02/18/2024 10:15 AM CDT Images from the original note were not included. MEDICAL ONCOLOGY OUTPATIENT ROV NOTE La Chung : 1950 DATE OF VISIT: 02/18/24 Oncology History Overview Note DIAGNOSIS: well differentiated [...] time, she also underwent right colectomy in the same OR by Dr. Greyson Reeves. Biopsy revealed [...] routine oncologic care. She was last seen 01/21/2024 and continued on cabozantinib 20mg on trial. She underwent CT 02/12/2024 which is stable per RECIST. Today, she is here with her daughter and notes: - feeling well, no complaints - ostomy bag was emptied this morning and stool was soft - no fevers, chills, SOB, CP, abdominal pain, urinary habit changes Current Outpatient Medications Medication Instructions 0.9 % sodium chloride ([facility] sodium chloride 0.9%) injection 10 [...] Application topically daily as needed (rash) coenzyme [id number] E 100-5 mg-unit capsule 1 tablet, Daily [...] heparin 100 unit/mL solution 5 mL, Weekly [facility] cabozantinib/placebo (/[id number]) 20 mg, oral, Nightly, Take on an empty stomach (no food for 2 hours before and 1 hour after each dose). Avoid Jas's Wort, grapefruit products and [place] oranges while on treatment. placed on hold [...] improved Objective ECOG PS: 1 VITALS: BP 152/88 (BP Location: Left arm) Pulse 64 Temp 36.5 ??C (97.7 ??F) (Oral) Resp 16 Wt 76.1 kg (167 lb 12.8 oz) SpO2 95% BMI 29.72 kg/m?? Physical Exam Vitals reviewed. Exam conducted with a rural route carrier present. Constitutional: General: She is not in acute distress. Appearance: Normal appearance. She is not ill-appearing. HENT: Head: Normocephalic and atraumatic. Ears: Comments: Hearing aid in place Nose: Nose normal. Mouth/Throat: Mouth: Mucous membranes are moist. Pharynx: Oropharynx is clear. No oropharyngeal exudate or posterior oropharyngeal erythema. Eyes: General: No scleral icterus. Conjunctiva/sclera: Conjunctivae normal. Neck: Comments: Left sided supraclavicular fullness, no discernable masses Cardiovascular: Rate and Rhythm: Normal rate and [...] Musculoskeletal: Cervical back: Normal range of motion. No tenderness. Right lower leg: No edema. Left lower leg: No edema. Lymphadenopathy: Cervical: No cervical adenopathy. Skin: General: Skin is warm. Coloration: Skin [...] Lab History Latest Ref Rng & Units 11/26/2023 11:20 12/24/2023 10:20 01/21/2024 11:44 02/18/2024 09:45 Labs - Hematology WBC 3.8 - 9.9 K/cumm 5.0 4.1 5.0 5.0 Total Hb, POC 11.9 - 15.5 g/dL 10.7 12.3 12.8 10.8 Hct 35.6 - 45.5 % 33.5 37.9 39.3 33.4 Plt 150 - 400 K/cumm 101 114 118 124 Neutrophil abs 1.5 - 6.5 K/cumm 3.0 2.0 2.8 2.2 Lymphocytes, abs 0.8 - 3.3 K/cumm 1.2 1.5 1.4 2.2 Chem/LFT Lab History Latest Ref Rng & Units 12/24/2023 10:20 01/21/2024 11:44 01/24/2024 14:16 02/18/2024 09:45 Labs-Chem/LFT Sodium 135 - 145 mmol/L 140 139 137 140 Creatinine 0.60 - 1.10 mg/dL 1.32 1.53 1.49 1.17 Bilirubin, total 0.1 - 1.2 mg/dL 0.5 0.4 0.4 AST 10 - 45 Units/L 28 31 35 ALT 7 - 45 Units/L 17 19 20 Alk phos 40 - 130 Units/L 70 61 54 CrCl- Actual Body Weight (Cockcroft-Gault) 42.9 36.5 38.5 49.9 Tumor Marker History Latest Ref Rng & Units 10/29/2023 10:33 11/26/2023 11:20 12/24/2023 10:20 01/21/2024 11:44 Tumor Markers Chromogranin A <93 ng/mL 477 8962 6586 8969 RADIOGRAPHIC/DIAGNOSTIC REVIEW: CT chest abdomen pelvis with [...] We reviewed her labs notable for Cr 1.17, stable CMP, Hgb 10.8, PLT 124. CGA pending. - We reviewed her CT which showed stable disease. - We will plan to proceed with cycle 33 of CABINET study, will continue on 20 [...] by nephrology 6. Renal function - Creatinine 1.17 - follows with Nephrology 7. Right TM [...] needed 10. HTN - per her PCP - BP 152/88 today 11. ?Depression - No SI/HI. Notes feeling tired and has lack of caring. - Discussed possible referral to siteman counseling -- she declines at this time. - Her family is very supportive. - Rec she follow up with her PCP My total encounter time on 02/18/2024 was 30 minutes which was spent in [...] as of this encounter Results * (ABNORMAL) Vitamin D 25 hydroxy (03/17/2024 11:16 AM CDT) Vitamin D 25-OH 14(L) 30 - 80 ng/mL Blood 03/17/2024 11:1 6 AM CDT 03/17/2024 1:02 PM CDT Eren Cr MD LAB BLOOD ORDERABLES Final Re sult Performing Organization Address City/[facility] Co de Phone Number [facility] One [facility] [place] [address] * Phosphorus (03/17/2024 11:16 AM CDT) Pathologist [facility] Phosphorus, pl 2.3 2.3 - 4.5 mg/dL Comment:Testing performed by : [address] [address] Blood 03/17/2024 11:1 6 AM CDT 03/17/2024 11:16 AM CDT Eren Cr MD LAB BLOOD ORDERABLES Final Re sult Performing Organization Address [facility] Co de Phone Number [facility] One [facility] [place] [address] * Lipid panel (03/17/2024 11:16 AM CDT) Pathologist [facility] Cholesterol 136 30 - 199 mg/dL Comment: Interpretive Data [...] Data was last revised on 2018. Triglycerides 123 <=149 mg/dL [facility] Comment: Interpretive Data Ages < or = [...] Data was last revised on 2018. HDL 47 >=40 mg/dL [facility] Comment: Interpretive Data Ages < [...] 2018. LDL, calculated 67 <=129 mg/dL [facility] Comment: Interpretive Data Ages < [...] was last revised on 2024. Non-HDL Cholesterol 89 mg/dL [facility] Comment: Interpretive Data Ages < [...] last revised on 2018. Chol/HDL ratio 3 [facility] Blood 03/17/2024 11:1 6 AM CDT 03/17/2024 1:02 PM CDT us Eren Cr MD LAB BLOOD ORDERABLES Final Re sult [facility] One [facility] Department of Laboratories [place], [place] [id number] * (ABNORMAL) Chromogranin A (03/17/2024 11:16 AM CDT) Chromogranin A 2992(H) <93 ng/mL [facility] Comment: Impaired renal or hepatic function or treatment with proton pump inhibitors may result in artifactual elevations of Chromogranin A. ADDITIONAL INFORMATION The testing method is a homogeneous time-resolved immunofluorescent assay manufactured by [employer] and performed on the [employer] Kryptor Compact Plus. ? Values obtained with [...] examination and other findings. Test Performed by: [place] [address] Blunger: Carley Tony Ph.D.; CLIA# [id number] Blood 03/17/2024 11:1 6 AM CDT 03/17/2024 1:12 PM CDT Eren Cr MD LAB BLOOD ORDERABLES Final Re sult Performing Organization Address [facility] Co de Phone Number [facility] [place] [address] [facility] * (ABNORMAL) TSH (03/17/2024 11:16 AM CDT) Thyroid Stimulating Hormone 5.72(H) 0.30 - 4.20 mcIUnit/mL Blood 03/17/2024 11:1 6 AM CDT 03/17/2024 1:02 PM CDT Eren Cr MD LAB BLOOD ORDERABLES Final Re sult Performing Organization Address City/[facility]/ZIP Co de Phone Number [facility] One [place] [address] * (ABNORMAL) Phosphorus (03/17/2024 11:16 AM CDT) Pathologist [facility] Phosphorus, pl 2.2(L) 2.3 - 4.5 mg/dL Comment:Testing performed by : [facility], [address] [place] [address] Blood 03/17/2024 11:1 6 AM CDT 03/17/2024 11:16 AM CDT Eren Cr MD LAB BLOOD ORDERABLES Final Re sult Performing Organization Address [facility]/[place]IP [place] [address] * Magnesium (03/17/2024 11:16 AM CDT) [facility] Magnesium 1.4 1.4 - 2.5 mg/dL Comment:Testing performed by : [facility], [address] [place] [address] Blood 03/17/2024 11:1 6 AM CDT 03/17/2024 11:16 AM CDT Eren Cr MD LAB BLOOD ORDERABLES Final Re sult Performing Organization Address City/[facility]/[place]IP [place] [address] * (ABNORMAL) Comprehensive metabolic panel (03/17/2024 11:16 AM CDT) Pathologist [facility] Sodium 137 135 - 145 mmol/L Comment:Testing performed by : [facility], [address] [place] [address] Potassium, pl 4.3 3.3 - 4.9 mmol/L [facility] Chloride 108 97 - 110 mmol/L [facility] CO2 24 22 - 32 mmol/L [facility] Anion gap 5 2 - 15 mmol/L [facility] BUN 18 6 - 25 mg/dL [facility] Creatinine 1.34(H) 0.60 - 1.10 mg/dL [facility] Glucose 103 70 - 199 mg/dL [facility] Comment: Interpretive Data Fasting glucose >/= 126 [...] 2022. Calcium 9.6 8.5 - 10.3 mg/dL [facility] Bilirubin, total 0.5 0.1 - 1.2 mg/dL [facility] Protein, pl 5.9(L) 6.5 - 8.5 g/dL [facility] Albumin 3.9 3.5 - 5.0 g/dL [facility] Alk phos 55 40 - 130 Units/L [facility] ALT 16 7 - 45 Units/L [facility] AST 27 10 - 45 Units/L [facility] Blood 03/17/2024 11:1 6 AM CDT 03/17/2024 11:16 AM CDT Eren Cr MD LAB BLOOD ORDERABLES Final Re sult [facility] [place] [address] * (ABNORMAL) CBC with auto differential (03/17/2024 11:16 AM CDT) Pathologist [facility] WBC 4.2 3.8 - 9.9 K/cumm Comment:Testing performed by : [address] [address] Hgb 10.9(L) 11.9 - 15.5 g/dL [facility] Comment:Testing performed by : [address] [address] Hct 33.6(L) 35.6 - 45.5 % [facility] Comment:Testing performed by : [facility], [address] [place] [address] Plt 102(L) 150 - 400 K/cumm [facility] Comment:Testing performed by : [facility], [address] [place] [address] MPV 9.3 9.1 - 12.3 fL [facility] RBC 3.51(L) 3.90 - 5.20 M/cumm [facility] MCV 95.7 81.3 - 96.4 fL [facility] MCH 31.1 27.1 - 33.3 pg [facility] MCHC 32.4 32.3 - 35.7 g/dL [facility] RDW CV 16.1(H) 11.1 - 14.9 % [facility] RDW SD 57.0(H) 35.7 - 48.1 fL [facility] NRBC abs 0.00 0.00 - 0.01 K/cumm [facility] Blood 03/17/2024 11:1 6 AM CDT 03/17/2024 11:16 AM CDT us Eren Cr MD LAB BLOOD ORDERABLES Final Re sult Performing Organization Address City/[facility]/ZIP Co de Phone Number [facility] Department [place] [address] * Ferritin (02/18/2024 12:48 PM CDT) Pathologist [facility] Ferritin 127 13 - 150 ng/mL Blood 02/18/2024 12:4 8 PM CDT 02/18/2024 1:54 PM CDT us Billie Raymundo NP LAB BLOOD ORDERABLES Final Resul t Performing Organization Address City/[facility]/ZIP Co de Phone Number [facility] Department [place] [address] * Iron profile w/ IBC (02/18/2024 12:48 PM CDT) Iron 74 35 - 145 mcg/dL TIBC 290 250 - 400 mcg/dL [facility] Transferrin saturation 26 20 - 50 % [facility] Blood 02/18/2024 12:4 8 PM CDT 02/18/2024 1:54 PM CDT Billie Raymundo [employer] LAB BLOOD ORDERABLES Final Resul t [facility] Department of Laboratories [place], [place] [id number] documented in this encounter Visit Diagnoses Diagnosis Neuroendocrine carcinoma (HCC)- Primary Other malignant neoplasm of unspecified site 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) Neuro-endocrine carcinoma (HCC) Other malignant neoplasm of unspecified site documented in this encounter Historical Medications * This list may reflect changes made after this encounter. amoxicillin 500 mg capsule TAKE 4 CAPSULES BY MOUTH 1 HOUR BEFORE APPOINTMENT 01/27/2024 4 added in this encounter Orders Appointment Requests Count Last Ordered Date Fi rst Ordered Date ON[facility]N CLINIC APPOINTMENT REQUEST 2 024 02/18/2024 ON[facility] INJECTION APPOINTMENT REQUEST 1 03/08 [facility] LAB APPOINTMENT 1 03/17/2024 ON[facility]N TAKE HOME STUDY DRUG APPT 1 03/17/20 24 documented in this encounter Care Teams Security Flex Utility Officer Relationship Specialty Start Date End Date Julio César Briseno MD PCP - General 10/01/16 Eren Cr MD Referring Physician Medical Oncology 11/25/18 Yohana Bowen MD Radiation Oncologist Radiation Oncology 11/25/18 Alejo Mi MD [address] [place] [address] Referring Physician Nephrology 03/07/23 documented as of this encounter
--- OUTSIDE RECORDS SUMMARY | 2024-06-25 22:06 | XMS_ITS | Encounter Summary ---
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 20 each 6 09/21/2019 prochlorperazine (COMPAZINE) 10 mg tabletIndications :Cancer Chemotherapy-Connie ronny Nausea and Vomiting Take 1 tablet (10 mg total) by mouth every 6 (six) hours as needed for nausea 60 tablet 3 03/23/2022 simvastatin (ZOCOR) 20 mg tablet Take 1 tablet (20 mg total) by mouth nightly ciprofloxacin (CIPRO) 500 mg tablet Take 1 tablet (500 mg total) by mouth 2 (two) times a day for 7 days 14 tablet 01/14/2024 4 0.9 % sodium chloride ([facility] sodium chloride 0.9%) injectionIndicati ons:line care Infuse 10 mL into a venous catheter once a week On saturday 4 0.9 % sodium chloride (sodium chloride 0.9%) 0.9% infusion 05/22/2023 4 ascorbic acid, vitamin C, 500 mg capsuleIndication s:supplement Take 1 tablet by mouth personnel supervisor before breakfast 07/04/2016 4 clotrimazole-beta methasone (LOTRISONE) cream Apply 1 Application topically daily as needed (rash) 4 coenzyme [id number] E 100-5 mg-unit capsuleIndication s:supplement Take 1 tablet by mouth personnel supervisor before breakfast 4 diphenoxylate-atr opine (LOMOTIL) 2.5-0.025 [...] -Heparin to flush 4 [id number] cabozantinib/plac abdulkadir (2017-08-122/A021 602) 20 mg tabletIndications :cancer study Take 1 tablet (20 mg total) by mouth nightly Take on an empty stomach (no food for 2 hours before and 1 hour after each dose).?? Avoid Jas's Wort, grapefruit products and [place] oranges while on treatment. placed on hold [...] 05/14/2019 4 ondansetron (ZOFRAN) 8 mg tabletIndications :Prevention of Radiation-Induced Nausea and Vomiting Take 1 tablet (8 mg total) by mouth every 8 (eight) hours as needed for nausea or vomiting 30 tablet 3 05/28/2023 4 sodium chloride 0.9 % solutionIndicatio ns:hydration [...] Procedure Name Priority Date/Time Associated Diagnosis Comments URINE CULTURE Routine 01/14/2024 5:07 PM CDT Acute cystitis with hematuria documented in this encounter Results * (ABNORMAL) Urine culture Urine, bladder (01/14/2024 5:07 PM CDT) Report Final Report: Greater than or equal to 100,000 colonies/mL of Klebsiella pneumoniae (.) Organism KLEBSIELLA PNEUMONIAE [facility] Urine, bladder 01/14/2024 5: 07 PM CDT 01/14/2024 5:50 PM CDT Narrative [facility] - 01/16/2024 10:36 AM CDT Testing performed by [facility] ([phone]) Organism Antibiotic Method Susceptibility Klebsiella pneumoniae Ampicillin INTERPRETATION Resistant Klebsiella pneumoniae Cefazolin INTERPRETATION Susceptible Klebsiella pneumoniae Nitrofurantoin INTERPRETATION Intermediate Klebsiella pneumoniae Gentamicin INTERPRETATION Susceptible Klebsiella pneumoniae Trimethoprim with Sulfamethoxazole INTERPRETATION Susceptible Klebsiella pneumoniae Meropenem INTERPRETATION Susceptible Klebsiella pneumoniae Cefepime INTERPRETATION Susceptible Klebsiella pneumoniae Ciprofloxacin INTERPRETATION Susceptible Klebsiella pneumoniae Ceftazidime INTERPRETATION Susceptible Klebsiella pneumoniae Ceftriaxone INTERPRETATION Susceptible Klebsiella pneumoniae Piperacillin/Tazobactam INTERPRE TATION Susceptible Klebsiella pneumoniae Cephalexin INTERPRETATION Susceptible Klebsiella pneumoniae Cefuroxime-axetil INTERPRETATION Susceptible Klebsiella pneumoniae Cefdinir INTERPRETATION Susceptible us Alejo Mi MD LAB MICROBIOLOGY - [facility] ORDERABLES Final Result [facility] One [facility] Department of [place] [address] documented in this encounter Visit Diagnoses Diagnosis Acute cystitis with hematuria documented in this encounter Care Teams Edger Automatic Relationship Specialty Start Date End Date Julio César Briseno MD PCP - General 10/01/16 Eren Cr MD Referring Physician Medical Oncology 11/25/18 Yohana Bowen MD Radiation Oncologist Radiation Oncology 11/25/18 Alejo Mi MD [address] [place] [address] Referring Physician Nephrology 03/07/23 documented as of this encounter
--- OUTSIDE RECORDS SUMMARY | 2024-06-25 22:06 | XMS_ITS | Encounter Summary ---
Author Organization [facility] Healthcare Address [address] [place] [address] Care Team Providers Care Quantometer Operator Name Role Phone Julio César Briseno MD Primary Care Provider [phone] Eren Cr MD Unavailable [phone] Yohana Bowen MD Unavailable Alejo Mi MD Unavailable [phone] Reason for Visit * Reason Comments Port Draw * Episode Based Medications (Routine) - Closed Specialty Diagnoses / Procedures Referred By Evelyne t Referred To Contact Diagnoses Neuro-endocrine carcinoma (HCC) Procedures study [id number] phase III cabozantinib Eren Cr MD [address] [facility] [address] [place] [address] Phone: tel: fax: [facility] [address] [facility] Advanced Medicine 7th [place] [address] Phone: tel: Referral ID Status Reason Start Date Expiration Date Visits Re quested Visits Authorized [id number] Closed 06/21/2021 06/26/2024 1 99 Encounter Details Date Type Department Care Team (Latest Contact Info) Description 03/17/2024 10:45 AM CDT Clinical Support [address] [place] [address] Neuro-endocrine carcinoma (HCC); Neuroendocrine carcinoma (HCC); Malignant [...] on file 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 Gender Identity Not on file Sexual Orientation Straight 02/19/2021 9: 29 AM CDT Occupation Industry Job Start Date Job End Date retired Not on file Not on file Not on file documented as of this encounter Plan of Treatment Not on file documented as of this encounter Procedures Procedure Name Priority Date/Time Associated Diagnosis Comments EGFR STAT 03/17/2024 11:16 AM CDT Neuro-endocrine carcinoma (HCC) DIFFERENTIAL AUTO STAT 03/17/2024 11: 16 AM CDT Neuro-endocrine carcinoma (HCC) CHROMOGRANIN A Routine 03/17/2024 11:16 AM CDT Neuro-endocrine carcinoma (HCC) CBC WITH AUTO DIFFERENTIAL STAT 03/17/2024 11:16 AM CDT Neuro-endocrine carcinoma (HCC) VITAMIN D 25 HYDROXY Routine 03/17/2024 11:16 AM CDT 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) TSH Routine 03/17/2024 11:16 AM CDT Neuro-endocrine carcinoma (HCC) PHOSPHORUS STAT 03/17/2024 11:16 AM CDT Neuro-endocrine carcinoma (HCC) PHOSPHORUS Routine 03/17/2024 11:16 AM CDT 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) MAGNESIUM STAT 03/17/2024 11:16 AM CDT Neuro-endocrine carcinoma (HCC) LIPID PANEL Routine 03/17/2024 11:16 AM CDT 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) COMPREHENSIVE METABOLIC PANEL STAT 03/17/2024 11:16 AM CDT Neuro-endocrine carcinoma (HCC) documented in this encounter Results * (ABNORMAL) eGFR (03/17/2024 11:16 AM CDT) [facility] eGFR 41(L) >=60 mL/min/1. 73 m2 Comment: Interpretive Data [...] interpretive data was last reviewed 2021. Blood 03/17/2024 11:1 6 AM CDT 03/17/2024 11:18 AM CDT Eren Cr MD LAB BLOOD ORDERABLES Final Re sult [facility] Department [place] [address] * Differential, auto (03/17/2024 11:16 AM CDT) Pathologist [facility] Neutrophil abs 2.2 1.5 - 6.5 K/cumm Comment:Testing performed by : [facility], [address] [place] [address] Imm gran abs 0.0 0.0 - 0.1 K/cumm [facility] Lymphocyte abs 1.3 0.8 - 3.3 K/cumm [facility] Monocyte abs 0.6 0.2 - 0.8 K/cumm [facility] Eosinophil abs 0.2 0.0 - 0.5 K/cumm [facility] Basophil abs 0.0 0.0 - 0.1 K/cumm [facility] Neutrophil pct 52.5 % [facility] Comment: Interpretive Data Percent cell count reference ranges are not reported, since discordance with absolute values may lead to misinterpretation of CBC data. Current Interpretive Data was last revised on 2017. Imm gran pct 0.5 % [facility] Comment: Interpretive Data Percent cell count reference ranges are not reported, since discordance with absolute values may lead to misinterpretation of CBC data. Current Interpretive Data was last revised on 2017. Lymphocyte pct 29.5 % [facility] Comment: Interpretive Data Percent cell count reference ranges are not reported, since discordance with absolute values may lead to misinterpretation of CBC data. Current Interpretive Data was last revised on 2017. Monocyte pct 13.2 % [facility] Comment: Interpretive Data Percent cell count reference ranges are not reported, since discordance with absolute values may lead to misinterpretation of CBC data. Current Interpretive Data was last revised on 2017. Eosinophil pct 3.8 % [facility] Comment: Interpretive Data Percent cell count reference ranges are not reported, since discordance with absolute values may lead to misinterpretation of CBC data. Current Interpretive Data was last revised on 2017. Basophil pct 0.5 % [facility] Comment: Interpretive Data Percent cell count reference ranges are not reported, since discordance with absolute values may lead to misinterpretation of CBC data. Current Interpretive Data was last revised on 2017. Blood 03/17/2024 11:1 6 AM CDT 03/17/2024 11:16 AM CDT us Eren Cr MD LAB BLOOD ORDERABLES Final Re sult [facility] Department [place] [address] * (ABNORMAL) CBC with auto differential (03/17/2024 11:16 AM CDT) WBC 4.2 3.8 - 9.9 K/cumm Comment:Testing performed by : [address] [address] Hgb 10.9(L) 11.9 - 15.5 g/dL [facility] Comment:Testing performed by : [address] [address] Hct 33.6(L) 35.6 - 45.5 % [facility] Comment:Testing performed by : [address] [address] Plt 102(L) 150 - 400 K/cumm [facility] Comment:Testing performed by : [facility], [address] [place] [address] MPV 9.3 9.1 - 12.3 fL [facility] RBC 3.51(L) 3.90 - 5.20 M/cumm [facility] MCV 95.7 81.3 - 96.4 fL [facility] MCH 31.1 27.1 - 33.3 pg [facility] MCHC 32.4 32.3 - 35.7 g/dL [facility] RDW CV 16.1(H) 11.1 - 14.9 % [facility] RDW SD 57.0(H) 35.7 - 48.1 fL [facility] NRBC abs 0.00 0.00 - 0.01 K/cumm [facility] Blood 03/17/2024 11:1 6 AM CDT 03/17/2024 11:16 AM CDT Eren Cr MD LAB BLOOD ORDERABLES Final Re sult [facility] Department [place] [address] * (ABNORMAL) Comprehensive metabolic panel (03/17/2024 11:16 AM CDT) Pathologist [facility] Sodium 137 135 - 145 mmol/L Comment:Testing performed by : [facility], [address] [place] [address] Potassium, pl 4.3 3.3 - 4.9 mmol/L [facility] Chloride 108 97 - 110 mmol/L [facility] CO2 24 22 - 32 mmol/L [facility] Anion gap 5 2 - 15 mmol/L [facility] BUN 18 6 - 25 mg/dL [facility] Creatinine 1.34(H) 0.60 - 1.10 mg/dL [facility] Glucose 103 70 - 199 mg/dL [facility] Comment: Interpretive Data Fasting glucose >/= [...] Calcium 9.6 8.5 - 10.3 mg/dL [facility] Bilirubin, total 0.5 0.1 - 1.2 mg/dL [facility] Protein, pl 5.9(L) 6.5 - 8.5 g/dL [facility] Albumin 3.9 3.5 - 5.0 g/dL [facility] Alk phos 55 40 - 130 Units/L [facility] ALT 16 7 - 45 Units/L [facility] AST 27 10 - 45 Units/L [facility] Blood 03/17/2024 11:1 6 AM CDT 03/17/2024 11:16 AM CDT Eren Cr MD LAB BLOOD ORDERABLES Final Re sult Performing Organization Address [facility] de Phone Number [facility] [place] [address] * Magnesium (03/17/2024 11:16 AM CDT) [facility] Magnesium 1.4 1.4 - 2.5 mg/dL Comment:Testing performed by : [address] [address] Blood 03/17/2024 11:1 6 AM CDT 03/17/2024 11:16 AM CDT Eren Cr MD LAB BLOOD ORDERABLES Final Re sult [facility] Department [place] [address] * (ABNORMAL) Phosphorus (03/17/2024 11:16 AM CDT) Phosphorus, pl 2.2(L) 2.3 - 4.5 mg/dL Comment:Testing performed by : [facility], [address] [place] [address] Blood 03/17/2024 11:1 6 AM CDT 03/17/2024 11:16 AM CDT Eren Cr MD LAB BLOOD ORDERABLES Final Re sult Performing Organization Address [facility] Co de Phone Number [facility] Department [place] [address] * (ABNORMAL) TSH (03/17/2024 11:16 AM CDT) [facility] Thyroid Stimulating Hormone 5.72(H) 0.30 - 4.20 mcIUnit/mL Blood 03/17/2024 11:1 6 AM CDT 03/17/2024 1:02 PM CDT Eren Cr MD LAB BLOOD ORDERABLES Final Re sult Performing Organization Address [facility] de Phone Number [facility] Department [place] [address] * (ABNORMAL) Chromogranin A (03/17/2024 11:16 AM CDT) [facility] Chromogranin A 2992(H) <93 ng/mL [facility] Comment: Impaired renal or hepatic function or treatment with proton pump inhibitors may result in artifactual elevations of Chromogranin A. ADDITIONAL INFORMATION The testing method is a homogeneous time-resolved immunofluorescent assay manufactured by [employer] and performed on the [employer] Compact Plus. ? Values obtained with different [...] examination and other findings. Test Performed by: [facility] [address] [place] [address] Trumpet Teacher: Carley Tony Ph.D.; CLIA# [id number] Blood 03/17/2024 11:1 6 AM CDT 03/17/2024 1:12 PM CDT Eren Cr MD LAB BLOOD ORDERABLES Final Re sult Performing Organization Address [facility] de Phone Number [facility] Department [place] [address] [facility] * (ABNORMAL) Vitamin D 25 hydroxy (03/17/2024 11:16 AM CDT) Vitamin D 25-OH 14(L) 30 - 80 ng/mL Blood 03/17/2024 11:1 6 AM CDT 03/17/2024 1:02 PM CDT Eren Cr MD LAB BLOOD ORDERABLES Final Re sult Performing Organization Address [facility] de Phone Number [facility] Department [place] [address] * Lipid panel (03/17/2024 11:16 AM CDT) Cholesterol 136 30 - 199 mg/dL Comment: [...] revised on 2018. Triglycerides 123 <=149 mg/dL [facility] Comment: Interpretive Data Ages < or [...] revised on 2018. HDL 47 >=40 mg/dL [facility] Comment: Interpretive Data Ages < or [...] on 2018. LDL, calculated 67 <=129 mg/dL [facility] Comment: Interpretive Data Ages < or [...] 3. Kai M et al. CAMILO Cardiol. 2020 November 05;5(5):540-548. doi: 10.1001/jamacardio.2020.0013 Current Interpretive Data was last revised on 2024. Non-HDL Cholesterol 89 mg/dL [facility] Comment: Interpretive Data Ages < or [...] last revised on 2018. Chol/HDL ratio 3 [facility] Blood 03/17/2024 11:1 6 AM CDT 03/17/2024 1:02 PM CDT Eren Cr MD LAB BLOOD ORDERABLES Final Re sult Performing Organization Address [facility] Co de Phone Number [facility] Department [place] [address] * Phosphorus (03/17/2024 11:16 AM CDT) Phosphorus, pl 2.3 2.3 - 4.5 mg/dL Comment:Testing performed by : [facility], [address] [place] [address] Blood 03/17/2024 11:1 6 AM CDT 03/17/2024 11:16 AM CDT Eren Cr MD LAB BLOOD ORDERABLES Final Re sult Performing Organization Address [facility] de Phone Number [facility] Department [place] [address] documented in this encounter Visit Diagnoses Diagnosis Neuro-endocrine carcinoma (HCC) Other malignant neoplasm of unspecified site Neuroendocrine carcinoma (HCC) Other malignant neoplasm of unspecified site 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) documented in this encounter Orders Appointment Requests Count Last Ordered Date Fi rst Ordered Date ONCBCN LAB APPOINTMENT 1 03/17/2024 documented in this encounter Care Teams Quantometer Operator Relationship Specialty Start Date End Date Julio César Briseno MD PCP - General 10/01/16 Eren Cr MD Referring Physician Medical Oncology 11/25/18 Yohana Bowen MD Radiation Oncologist Radiation Oncology 11/25/18 Alejo Mi MD Replaced by [facility] [address] [place] [address] Referring Physician Nephrology 03/07/23 documented as of this encounter
--- OUTSIDE RECORDS SUMMARY | 2024-06-25 22:06 | XMS_ITS | Encounter Summary ---
Author Organization [facility] Address [address] [place] [address] Phone Care Team Providers Care Hosting Engineer Name Role Phone Julio César Briseno MD Primary Care Provider [phone] Eren Cr MD Unavailable [phone] Yohana Bowen MD Unavailable GibsonAlejo Waggoner MD Unavailable [phone] Reason for Referral * MRI/CAT/PET Scan (Routine) - Closed Specialty Diagnoses / Procedures Referred By Contac t Referred To Contact Radiology Diagnoses Neuroendocrine carcinoma (HCC) Procedures CT chest abdomen pelvis with contrast Eren Cr MD [address] [place] [address] Phone: tel: fax: [facility] [address] [place] [address] Referral ID Status Reason Start Date Expiration Date Visits Re quested Visits Authorized [id number] Closed 04/03/2024 05/03/2025 1 1 Encounter Details Date Type Department Care Team (Late st Contact Info) Description 04/03/2024 Orders Only [facility] Oncology [address] [place] [phone] Eren Cr MD [address] [facility] [address] [place] [address] Neuroendocrine carcinoma (HCC) (Primary Dx) Social History [...] on file 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
--- OUTSIDE RECORDS SUMMARY | 2024-06-25 22:06 | XMS_ITS | Encounter Summary ---
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) Procedures CT chest abdomen pelvis with contrast Eren Cr MD [facility] [address] [place] [address] Phone: tel: fax: [address] [address] Referral ID Status Reason Start Date Expiration Date Visits Re quested Visits Authorized [id number] Closed 01/17/2024 02/15/2025 1 1 Reason for Visit * MRI/CAT/PET Scan (Routine) - Closed Specialty Diagnoses / Procedures [facility] Referred To Contact Radiology Diagnoses 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) Procedures CT chest abdomen pelvis with contrast Eren Cr MD [address] [facility] [address] [place] [address] Phone: tel: fax: [address] [address] Referral ID Status Reason Start Date Expiration Date Visits Re quested Visits Authorized [id number] Closed 01/17/2024 02/15/2025 1 1 Encounter Details Date Type Department Care Team (Latest Contact Info) Description 02/12/2024 8:42 AM CDT - 02/12/2024 11:59 PM CDT Hospital Encounter [facility] [address] [place] [address] Neuro-endocrine carcinoma (HCC); 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); 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 20 each 6 09/21/2019 simvastatin (ZOCOR) 20 mg tablet Take 1 tablet (20 mg total) by mouth nightly 0.9 % sodium chloride ([facility] sodium chloride 0.9%) injectionIndicati ons:line care Infuse 10 mL into a venous catheter once a week On saturday 4 0.9 % sodium chloride (sodium chloride 0.9%) 0.9% infusion 05/22/2023 4 amoxicillin 500 mg capsule TAKE 4 CAPSULES BY MOUTH 1 HOUR BEFORE APPOINTMENT 01/27/2024 4 ascorbic acid, vitamin C, 500 mg capsuleIndication s:supplement Take 1 tablet by mouth precision optics technician before breakfast 07/04/2016 4 clotrimazole-beta methasone (LOTRISONE) cream Apply 1 Application topically daily as needed (rash) 4 coenzyme O17-ksppoto E 100-5 mg-unit capsuleIndication s:supplement Take 1 tablet by mouth precision optics technician before breakfast 4 diphenoxylate-atr opine (LOMOTIL) 2.5-0.025 [...] dose).?? Avoid Jas's Wort, grapefruit products and [place] oranges while on treatment. placed on hold [...] CONTRAST Schedule Routine, Read Routine (OP Routine) 02/12/2024 10:01 AM CDT 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) documented in this encounter Results * [...] Electronically signed by: Cindy Llanes M.D. Eren rC MD IM CT PROCEDURES Final Resul t documented in this encounter Visit Diagnoses Diagnosis Neuro-endocrine carcinoma (HCC) Other malignant neoplasm of unspecified site 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) documented in this encounter Administered Medications Inactive Administered Medications - up to 3 most recent administrations Medication Order MAR Action Action Date Dose Rate Site ioversoL (OPTIRAY 350) syringe 100 mL 100 mL, intravenous, Once in imaging, contrast, Starting on Sat02/12/24 at 0954, For 1 dose Contrast Given 02/12/2024 9:55 AM CDT 75 mL documented in this encounter Orders Medications Ordered That Brett ht Not Have Been Administered Count Last Ordered Date First Ordered Date ioversoL (OPTIRAY 350) syringe 100 mL 1 01/2024 documented in this encounter Care Teams Project Scheduler Relationship Specialty Start Date End Date Julio César Briseno MD PCP - General 10/01/16 Eren Cr MD Referring Physician Medical Oncology 11/25/18 Yohana Bowen MD Radiation Oncologist Radiation Oncology 11/25/18 Alejo Mi MD [address] [place] [address] Referring Physician Nephrology 03/07/23 documented as of this encounter
--- OUTSIDE RECORDS SUMMARY | 2024-06-25 22:06 | XMS_ITS | Encounter Summary ---
Author Organization [facility] Address [address] [place] [address] Phone Care Team Providers Care Composite Laminator Name Role Phone Julio César Briseno MD Primary Care Provider [phone] Eren Cr MD Unavailable Yohana Bowen MD Unavailable Alejo Mi MD Unavailable [phone] Encounter Details Date Type Department Care Team (Late st Contact Info) Description 01/17/2024 Telephone [facility] Nephrology [address] [facility] Advanced Medicine 5th [place] [address] [place] [address] Alejo Mi MD [facility] [address] [place], [place] [id number] Social History Tobacco Use Types Packs/Day Years [...] on file 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 She is feeling fine, and UTI symptoms are gone. We agreed that this evenings dose would be the lastone. documented in this encounter Plan of Treatment Not on file documented as of this encounter Visit Diagnoses Not on filedocumented in this encounter Care Teams Composite Laminator Relationship Specialty Start Date End Date Julio César Briseno MD PCP - General 10/01/16 Eren Cr MD Referring Physician Medical Oncology 11/25/18 Yohana Bowen MD Radiation Oncologist Radiation Oncology 11/25/18 Alejo Mi MD [address] [place] [address] [address] [place] [address] Referring Physician Nephrology 03/07/23 documented as of this encounter
--- OUTSIDE RECORDS SUMMARY | 2024-06-25 22:07 | XMS_ITS | Encounter Summary ---
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 Gender Identity Not on file Sexual Orientation [...] under the skin every 28 (twenty-eight) days lidocaine-priloca ine (lidocaine-priloc cheyenne) creamIndications: Neuro-endocrine carcinoma [...] by mouth nightly 0.9 % sodium chloride ([facility] sodium chloride 0.9%) injectionIndicati ons:line care Infuse 10 mL into a venous catheter once a week On saturday 4 0.9 % sodium chloride (sodium chloride 0.9%) 0.9% infusion 05/22/2023 4 ascorbic acid, vitamin C, 500 mg capsuleIndication s:supplement Take 1 tablet by mouth linoleum floor layer before breakfast 07/04/2016 4 clotrimazole-beta methasone (LOTRISONE) cream Apply 1 Application topically daily as needed (rash) 4 coenzyme H17-pimjmne E 100-5 mg-unit capsuleIndication s:supplement Take 1 tablet by mouth linoleum floor layer before breakfast 4 diphenoxylate-atr opine (LOMOTIL) 2.5-0.025 mg per tabletIndications :Chemotherapy-Ind uced Diarrhea Take 1 tablet by mouth 4 (four) times a day as needed for diarrhea 90 tablet 02/14/[address] (CYMBALTA) 30 mg capsule Take 1 capsule (30 mg total) by mouth daily 30 capsule 2 04/24/2019 4 ergocalciferol (VITAMIN D) 50,000 unit capsule Take 1 capsule (50,000 Units total) by mouth once a week 12 capsule 06/11/2023 4 fluticasone propionate (FLONASE) 50 mcg/actuation nasal sprayIndications: Allergic Rhinitis Administer 2 sprays into each nostril daily as needed for rhinitis or allergies 4 heparin 100 unit/mL solutionIndicatio ns:Maintain Patency of Indwelling Vascular Catheter Infuse 5 mL (500 Units total) into a venous catheter once a week Fluids every -Heparin to flush 4 [facility] cabozantinib/plac abdulkadir (/[id number]) 20 mg tabletIndications :cancer study Take 1 tablet (20 mg total) by mouth nightly Take on an empty stomach (no food for 2 hours before and 1 hour after each dose).?? Avoid Jas's Wort, grapefruit products and [place] oranges while on treatment. placed on hold 09/26/22 for covid 01/29/2022 4 levothyroxine (SYNTHROID) 100 mcg tabletIndications :Hypothyroidism, unspecified type Take 1 tablet (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) by mouth daily 90 tablet 09/12/2023 4 LORazepam (ATIVAN) 0.5 mg tabletIndications :MRI [...] on filedocumented in this encounter Care Teams Scrap Burner Relationship Specialty Start Date End Date Julio César Briseno MD PCP - General 10/01/16 Eren Cr MD Referring Physician Medical Oncology 11/25/18 Yohana Bowen MD Radiation Oncologist Radiation Oncology 11/25/18 Alejo Mi MD [address] [place] [address] Referring Physician Nephrology 03/07/23 documented as of this encounter
--- OUTSIDE RECORDS SUMMARY | 2024-06-25 22:07 | XMS_ITS | Encounter Summary ---
Author Organization [facility] Address [address] [place] [address] Phone Care Team Providers Care Education Rn Name Role Phone Julio César Briseno MD Primary Care Provider [phone] Eren Cr MD Unavailable Yohana Bowen MD Unavailable DamariscottaAlejo Ramos MD Unavailable [phone] Reason for Visit * Episode Based Medications (Routine) - Closed Specialty Diagnoses / Procedures Referred By Contac t Referred To Contact Diagnoses Neuro-endocrine carcinoma (HCC) Procedures study [id number] phase III cabozantinib Eren Cr MD [address] [place] [address] Phone: tel: fax: [facility] [address] [facility] 7th [place] [address] Phone: tel: Referral ID Status Reason Start Date Expiration Date Visits Re quested Visits Authorized [id number] Closed 06/21/2021 06/26/2024 1 99 Encounter Details Date Type Department Care Team (Latest Contact Info) Description 10/29/2023 9:30 AM CDT Clinical Support [facility] Oncology [address] [place] [address] Neuro-endocrine carcinoma (HCC) Social History Tobacco Use [...] on file 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
--- OUTSIDE RECORDS SUMMARY | 2024-06-25 22:07 | XMS_ITS | Encounter Summary ---
Author Organization [facility] Address [address] [place] [address] Phone Care Team Providers Care Board Turner Name Role Phone Julio César Briseno MD Primary Care Provider Eren Cr MD Unavailable [phone] Yohana Bowen MD Unavailable Alejo Mi MD Unavailable [phone] Encounter Details Date Type Department Care Team (Late st Contact Info) Description 12/24/2023 Orders Only [facility] Oncology [address] [facility] 7th [place] [address] [place] [address] Hien Jaimes, [facility] Social History Tobacco Use Types [...] on file 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 Gender Identity Not on file Sexual Orientation Straight 02/19/2021 9: 29 AM CDT Occupation Industry Job Start Date Job End Date retired Not on file Not on file Not on file documented as of this encounter Plan of Treatment Not on file documented as of this encounter Visit Diagnoses Not on filedocumented in this encounter Care Teams Board Turner Relationship Specialty Start Date End Date Julio César Briseno MD PCP - General 10/01/16 Eren Cr MD Referring Physician Medical Oncology 11/25/18 Yohana Bowen MD Radiation Oncologist Radiation Oncology 11/25/18 Alejo Mi MD [address] [address] Referring Physician Nephrology 03/07/23 documented as of this encounter
--- OUTSIDE RECORDS SUMMARY | 2024-06-25 22:07 | XMS_ITS | Encounter Summary ---
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) Procedures [place] OCTREOTIDE INJECTION, DEPOT Octreotide 28 Day Cycles - Carcinoid Eren Cr MD [address] [facility] [address] [place] [address] Phone: tel: fax: [facility] [address] [address] Phone: tel: fax: Referral ID Status Reason Start Date Expiration Date V isits Requested Visits Authorized [id number] Authorized 11/28/2017 02/05/2025 1 150 Encounter Details Date Type Department Care Team (Late st Contact Info) Description 12/24/2023 1:15 PM CDT Infusion [facility] Oncology [address] [place] [address] Neuroendocrine carcinoma (HCC); Malignant neoplasm metastatic to [...] on file 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
--- OUTSIDE RECORDS SUMMARY | 2024-06-25 22:07 | XMS_ITS | Encounter Summary ---
Author Organization [facility] Address [address] [place] [address] Phone Care Team Providers Care Hand Bulldozer Name Role Phone Julio César Briseno MD Primary Care Provider Eren Cr MD Unavailable [phone] Yohana Bowen MD Unavailable Alejo Mi MD Unavailable [phone] Encounter Details Date Type Department Care Team (Late st Contact Info) Description 12/24/2023 10:45 AM CDT Office Visit [facility] Oncology [address] [place] [address] Eren Cr MD [address] [place] [address] Neuroendocrine carcinoma (HCC) (Primary Dx); 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); 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); Neuro-endocrine carcinoma (HCC) Social History Tobacco [...] on file 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 Gender Identity Not on file Sexual Orientation Straight 02/19/2021 9: 29 AM CDT Occupation Industry Job Start Date Job End Date retired Not on file Not on file Not on file documented as of this encounter Last Filed Vital Signs Vital Sign Reading Time Taken Comments Blood Pressure 124/72 12/24/2023 11:37 AM CDT Pulse 86 12/24/2023 11:37 AM CDT Temperature 36.6 ??C (97.9 ??F) 12/24/2023 1 1:37 AM CDT Respiratory Rate 17 12/24/2023 11:3 7 AM CDT Oxygen Saturation 96% 12/24/2023 11: 37 AM CDT Inhaled Oxygen Concentration - - Weight 73.8 kg (162 lb 11.2 oz) 024 11:37 AM CDT Height - - Body Mass Index 28.82 09/06/2023 2:48 PM CARE MANAGER CNA documented in this encounter Ordered Prescriptions Prescription Sig Dispense Quantity Refills Last Filled Start Date End Date ergocalciferol (VITAMIN D) 50,000 unit capsuleIndications :Vitamin D Deficiency Take 1 capsule (50,000 Units total) by mouth once a week for 12 doses 12 capsule 2 12/24/2023 documented in this encounter Progress Notes * Billie Raymundo, CECILIA - 12/24/2023 10:45 AM CDT Images from the original note were not included. MEDICAL ONCOLOGY OUTPATIENT ROV NOTE La Chung : 1950 DATE OF VISIT: 12/24/23 Oncology History Overview Note DIAGNOSIS: well differentiated [...] time, she also underwent right colectomy in [facility] OR by Dr. Greyson Reeves. Biopsy [...] care. She was last seen in clinic 11/26/2023 with stable scan. She received Cycle 30 cabozantinib (open label) on CABINET study at that time. Today, she is here with her daughter and notes: - feeling fine. No major complaints other than feeling tired, noting lack of energy and caring (forexample, she used to participate in weekly meetings with her friends quilting, however she has not had motivation to go lately). She has very good family support. - has been taking 4mg imodium TID -- with improvement in her stools. However, her ostomy bag is liquid today. She notes the thickest the stool has been was thick enough for her to squeeze out of her bag, not hard. - She denies any fevers, chills, abdominal pain. - She is s/p recent course of augmentin per her PCP for sinus infection. Current Outpatient Medications Medication Instructions 0.9 % sodium chloride ([facility] sodium chloride 0.9%) injection 10 mL, intravenous, Weekly, On saturday 0.9 % sodium chloride (sodium chloride 0.9%) 0.9% infusion amLODIPine (NORVASC) 5 mg tablet ascorbic acid, vitamin C, 500 mg capsule 1 tablet, Daily (early AM) cholecalciferol (VITAMIN D-3) 1,000 Units, oral, Daily clotrimazole-betamethasone (LOTRISONE) cream Apply 1 Application topically daily as needed (rash) coenzyme [id number] 100-5 mg-unit capsule 1 tablet, Daily (early AM) denosumab (Xgeva) 120 mg/1.7 mL (70 mg/mL) injection Inject 1.7 mL (120 mg total) under the skin every 28 (twenty-eight) days diphenoxylate-atropine (LOMOTIL) 2.5-0.025 mg per tablet 1 tablet, oral, 4 times daily PRN DULoxetine DR (CYMBALTA) 30 mg, oral, Daily ergocalciferol (VITAMIN D) 50,000 Units, oral, Weekly fluticasone propionate (FLONASE) 50 mcg/actuation nasal spray Administer 2 sprays into each nostrildaily as needed for rhinitis or allergies heparin 100 unit/mL solution 5 mL, Weekly [facility] cabozantinib/placebo (/[id number]) 20 mg, oral, Nightly, Take on an empty stomach (no food for 2 hours before and 1 hour after each dose). Avoid [place]'s Wort, grapefruit products and [place] oranges while on treatment. placed on hold 09/26/22 for covid levothyroxine (SYNTHROID) 100 mcg, oral, Daily (early AM) lidocaine-prilocaine (lidocaine-prilocaine) cream topical, As needed, Apply a generous amount topically to port site 1 hour prior to lab/treatment, do not rub in, and cover with non absorbant dressing loperamide HCl (IMODIUM A-D ORAL) 1 tablet, oral, Daily PRN LORazepam (ATIVAN) 0.5 mg tablet [...] oral, Every 8 hours PRN [facility] Patient has colostomy and needs Cavilon 3M skin barrier film to manage. prochlorperazine (COMPAZINE) 10 mg, oral, Every 6 hours PRN simvastatin (ZOCOR) 20 mg, oral, Nightly sodium chloride 0.9 % solution 1,000 mL, intravenous, Weekly, Patient to infuse 1000mL of Normal Saline via CADD Coreas pump set at 300mL/Hr once weekly.- Saturday triamcinolone (KENALOG) 0.1 % ointment Apply to itchy rash on hands twice daily until improved Objective ECOG PS: 1 VITALS: BP 124/72 (BP Location: Left arm) Pulse 86 Temp 36.6 ??C (97.9 ??F) (Oral) Resp 17 Wt 73.8 kg (162 lb 11.2 oz) SpO2 96% BMI 28.82 kg/m?? Physical Exam Vitals reviewed. Exam conducted with a chip silo tender present. Constitutional: General: She is not in [...] Lab History Latest Ref Rng & Units 10/29/2023 10:33 11/13/2023 11:25 11/26/2023 11:20 12/24/2023 10:20 Labs - Hematology WBC 3.8 - 9.9 K/cumm 3.1 3.5 5.0 4.1 Total Hb, POC 11.9 - 15.5 g/dL 10.9 11.0 10.7 12.3 Hct 35.6 - 45.5 % 33.3 33.1 33.5 37.9 Plt 150 - 400 K/cumm 94 102 101 114 Neutrophil abs 1.5 - 6.5 K/cumm 2.0 2.3 3.0 2.0 Lymphocytes, abs 0.8 - 3.3 K/cumm 0.3 0.5 1.2 1.5 Chem/LFT Lab History Latest Ref Rng & Units 10/29/2023 10:33 11/13/2023 11:25 11/26/2023 11:20 12/24/2023 10:20 Labs-Chem/LFT Sodium 135 - 145 mmol/L 139 139 137 140 Creatinine 0.60 - 1.10 mg/dL 1.11 1.03 1.21 1.32 Bilirubin, total 0.1 - 1.2 mg/dL 0.5 0.4 0.6 0.5 AST 10 - 45 Units/L 27 25 33 28 ALT 7 - 45 Units/L 19 16 20 17 Alk phos 40 - 130 Units/L 66 73 67 70 CrCl- Actual Body Weight (Cockcroft-Gault) 52.9 56.2 48.9 42.9 Tumor Marker History Latest Ref Rng & Units 08/27/2023 09:38 09/26/2023 13:03 10/29/2023 10:33 11/26/2023 11:20 Tumor Markers Chromogranin A <93 ng/mL 339 [phone] RADIOGRAPHIC/DIAGNOSTIC REVIEW: CT chest abdomen pelvis with contrast 11/13/2023 Subcentimeter nodule or lymph node within the [...] per CABINET trial with dose 20mg daily. Coordinator saw her today for pill count and tox check -- she was unable to give a urine specimen today, thus she will return tomorrow for pickup of new bottle of pills. - We reviewed her labs notable for stable CMP and CBC with slight increase in her Cr from last time. CGA last time 2279 from 667; today's is pending. - We will plan to proceed with cycle 30 day 1 of CABINET study, will continue on 20 mg dosing of cabozantinib. Patient is agreeable. - She will return for follow up in 4 weeks per protocol. 2. Bone metastases - No suspicious lesions on last CT. - On xgeva, last recived 09/26/2023 3. Diarrhea - Has chronic diarrhea since diagnosis. 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 - Improved with Imodium when taken consistently. Today, her ostomy bag was filled with liquid stools. We discussed increasing her Imodium to 4mg QID. Discussed aiming for soft consistency. - Will give 500ml NS IVF today for hydration. 4. Hypothyroidism with TSH elevated - Managed per endocrinology. 5. Vitamin D insufficiency/Deficiency - Vit D checked 06/11 16. Pt on ergocalciferol 94340 units weekly. -- she states she is still on this. - followed by nephrology 6. Renal function - Creatinine 1.32 - follows with Nephrology 7. Right TM [...] per her PCP. Amlodipine prn. - BP 124/72. She states she has also been taking amlodipine but not this morning. 11. ?Depression - No SI/HI. Notes feeling tired and has lack of caring. - Discussed possible referral to siteman counseling -- she declines at this time. - Her family is very supportive. - Rec she follow up with her PCP My total encounter time on 12/24/2023 was 40 minutes which was spent in the activities documented inthe note. This includes time spent prior to the visit and after the visit in direct care of the patient. This time does not include time spent in any separately reportable services. Billie Raymundo NP In collaboration with Dr. Cr. 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, [address] [place] [address] Blood 01/21/2024 11:4 4 AM CDT 01/21/2024 11:44 AM CDT Eren Cr MD LAB BLOOD ORDERABLES Final Re sult Performing Organization Address [facility]/ZIP Co de Phone Number [facility] [place] [address] * Magnesium (01/21/2024 11:44 AM CDT) Magnesium 1.7 1.4 - 2.5 mg/dL Comment:Testing performed by : [facility], [address] [place] [address] Blood 01/21/2024 11:4 4 AM CDT 01/21/2024 11:44 AM CDT Eren Cr MD LAB BLOOD ORDERABLES Final Re sult Performing Organization Address [facility] Co de Phone Number [facility] [place] [address] * (ABNORMAL) Comprehensive metabolic panel (01/21/2024 11:44 AM CDT) Sodium 139 135 - 145 mmol/L Comment:Testing performed by : [address] [address] Potassium, pl 3.9 3.3 - 4.9 mmol/L [facility] Chloride 108 97 - 110 mmol/L [facility] CO2 24 22 - 32 mmol/L [facility] Anion gap 7 2 - 15 mmol/L [facility] BUN 18 6 - 25 mg/dL [facility] Creatinine 1.53(H) 0.60 - 1.10 mg/dL [facility] Glucose 93 70 - 199 mg/dL [facility] [...] 2022. Calcium 9.3 8.5 - 10.3 mg/dL [facility] Bilirubin, total 0.4 0.1 - 1.2 mg/dL [facility] Protein, pl 6.5 6.5 - 8.5 g/dL [facility] Albumin 4.1 3.5 - 5.0 g/dL [facility] Alk phos 61 40 - 130 Units/L [facility] ALT 19 7 - 45 Units/L [facility] AST 31 10 - 45 Units/L [facility] Blood 01/21/2024 11:4 4 AM CDT 01/21/2024 11:44 AM CDT us Eren Cr MD LAB BLOOD ORDERABLES Final Re sult [facility] Department [place] [address] * (ABNORMAL) CBC with auto differential (01/21/2024 11:44 AM CDT) [facility] [address] WBC 5.0 3.8 - 9.9 K/cumm Comment:Testing performed by : [address] [address] Hgb 12.8 11.9 - 15.5 g/dL [facility] Comment:Testing performed by : [address] [address] Hct 39.3 35.6 - 45.5 % [facility] Comment:Testing performed by : [address] [address] Plt 118(L) 150 - 400 K/cumm [facility] Comment:Testing performed by : [address] [address] MPV 9.8 9.1 - 12.3 fL [facility] RBC 4.12 3.90 - 5.20 M/cumm [facility] MCV 95.4 81.3 - 96.4 fL [facility] MCH 31.1 27.1 - 33.3 pg [facility] MCHC 32.6 32.3 - 35.7 g/dL [facility] RDW CV 15.9(H) 11.1 - 14.9 % [facility] RDW SD 55.3(H) 35.7 - 48.1 fL [facility] NRBC abs 0.00 0.00 - 0.01 K/cumm [facility] Blood 01/21/2024 11:4 4 AM CDT 01/21/2024 11:44 AM CDT us Eren Cr MD LAB BLOOD ORDERABLES Final Re sult [facility] Department [place] [address] * (ABNORMAL) Chromogranin A (01/21/2024 11:44 AM CDT) Pathologist [facility] Chromogranin A 3301(H) <93 ng/mL [place] ref Lab Comment: Impaired renal or hepatic function or treatment with proton pump inhibitors may result in artifactual elevations of Chromogranin A. ADDITIONAL INFORMATION The testing method is a homogeneous time-resolved immunofluorescent assay manufactured by [employer] and performed on the MiniVax Kryptor Compact Plus. ? Values obtained with [...] examination and other findings. Test Performed by: [address] [address] Study Coordinator: Carley Tony Ph.D.; CLIA# [id number] Blood 01/21/2024 11:4 4 AM CDT 01/21/2024 2:59 PM CDT Eren Cr MD LAB BLOOD ORDERABLES Final Re sult Performing Organization Address City/[facility]/ZIP Co de Phone Number [facility] [place] [address] [place] ref [facility] * (ABNORMAL) Vitamin D 25 hydroxy (01/21/2024 11:44 AM CDT) Vitamin D 25-OH 18(L) 30 - 80 ng/mL Blood 01/21/2024 11:4 4 AM CDT 01/21/2024 2:02 PM CDT Eren Cr MD LAB BLOOD ORDERABLES Final Re sult Performing Organization Address City/[facility] Co de Phone Number [facility] [place] [address] * Lipid panel (01/21/2024 11:44 AM CDT) [facility] [address] Cholesterol 135 30 - 199 mg/dL Comment: [...] revised on 2018. Triglycerides 131 <=149 mg/dL [facility] Comment: Interpretive [...] revised on 2018. HDL 54 >=40 mg/dL [facility] Comment: Interpretive [...] on 2018. LDL, calculated 55 <=129 mg/dL [facility] Comment: [...] revised on 2018. Non-HDL Cholesterol 81 mg/dL [facility] Comment: Interpretive Data Ages < or [...] last revised on 2018. 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) Other malignant neoplasm of unspecified site documented in this encounter Discontinued Medications Medication Sig Discontinue Reason Start Date End Da te ergocalciferol (VITAMIN D) 50,000 unit capsuleIndications:Vitam in D Deficiency Take 1 capsule (50,000 Units total) by mouth once a week 11/26/2023 12/24/2023 documented as of this encounter Orders Appointment Requests Count Last Ordered Date Fi rst Ordered Date ONCBCN CLINIC APPOINTMENT REQUEST 2 024 12/24/2023 ONCBCN INJECTION APPOINTMENT REQUEST 1 01/05 ONCBCN LAB APPOINTMENT 1 01/21/2024 ONCBCN TAKE HOME STUDY DRUG APPT 2 01/21/20 24 12/25/2023 documented in this encounter Care Teams Hand Bulldozer Relationship Specialty Start Date End Date Julio César Briseno MD PCP - General 10/01/16 Eren Cr MD Referring Physician Medical Oncology 11/25/18 Yohana Bowen MD Radiation Oncologist Radiation Oncology 11/25/18 Alejo Mi MD [address] [address] Referring Physician Nephrology 03/07/23 documented as of this encounter
--- OUTSIDE RECORDS SUMMARY | 2024-06-25 22:07 | XMS_ITS | Encounter Summary ---
Author Organization [facility] Address [address] [place] [address] Phone Care Team Providers Care Appliance Service Representative Name Role Phone Julio César Briseno MD Primary Care Provider [phone] Eren Cr MD Unavailable [phone] Yohana Bowen MD Unavailable RecluseAlejo Ramos MD Unavailable [phone] 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) Procedures [place] OCTREOTIDE INJECTION, DEPOT Octreotide 28 Day Cycles - Carcinoid Eren Cr MD [address] [facility] [address] [place] [address] Phone: tel: fax: [facility] Cancer [address] [address] Phone: tel: fax: Referral ID Status Reason Start Date Expiration Date V isits Requested Visits Authorized [id number] Authorized 11/28/2017 02/05/2025 1 150 Encounter Details Date Type Department Care Team (Late st Contact Info) Description 10/29/2023 1:15 PM CDT Infusion [facility] Oncology [address] [place] [address] Neuroendocrine carcinoma (HCC); Malignant neoplasm metastatic to [...] on file 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
--- OUTSIDE RECORDS SUMMARY | 2024-06-25 22:07 | XMS_ITS | Encounter Summary ---
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) Procedures CT chest abdomen pelvis with contrast Eren Cr MD [address] [facility] [address] [place] [address] Phone: tel: fax: [address] [address] Referral ID Status Reason Start Date Expiration Date Visits Re quested Visits Authorized [id number] Closed 10/18/2023 11/16/2024 1 1 Encounter Details Date Type Department Care Team (Late st Contact Info) Description 10/18/2023 Orders Only [facility] Oncology [address] [place] [address] Eren Cr MD [address] [facility] [address] [place] [address] Neuroendocrine carcinoma (HCC) (Primary Dx); Malignant neoplasm [...] file 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 Subcentimeter nodule or lymph node within the right medial lower lobe, unchanged from the most recent prior examination but slightly increased in size compared to 12/13/2022, potentially representing a site of metastatic disease. 2. Stable hepatic metastases, peritoneal and omental deposits, and retroperitoneal lymphadenopathy. ?? Dictated by: Buddy Trejo MD The radiology attending physician has personally reviewed this study, and had reviewed and/or edited this written report and agrees with it. Electronically signed by: Frantz Valera M.D. Narrative 11/14/2023 7:13 AM CDT EXAMINATION: CT CHEST ABDOMEN PELVIS W CONTRAST HISTORY: Neuroendocrine tumor of the ileum TECHNIQUE: ?? Computed tomographic images of the chest, abdomen, and pelvis were obtained following administration of intravenous 75 ml Optiray-350. COMPARISON: CT chest abdomen pelvis 08/16/2023, 05/24/2023 FINDINGS: ?? CHEST: There is an 8 mm, high density nodule or lymph node within the medial right lower lobe (series 3, image 74). This is unchanged from the most recent prior examination, but increased in size compared to 12/13/2022 when it measured 6 mm. No pneumonic consolidation, pleural effusion, or pneumothorax. Central airways are normal in caliber. No supraclavicular, axillary, mediastinal, or hilar lymphadenopathy. Normal heart size. 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 No pericardial effusion. ??Right internal jugular venous approach port catheter terminates at the superior cavoatrial junction. An aberrant right subclavian artery is noted. There is chronic thickening of the esophagus above the level of the artery, which may represent chronic dysphagia lusoria. ABDOMEN/PELVIS: Multiple hepatic lesions are not significantly changed from prior. For example: - Hepatic segment 4, 3.0 x 3.0 cm (series 2, image 125) - Hepatic segment 7, 3.1 cm (series 2, image 1:30) The gallbladder surgically absent. ??Mild prominence of the intra and extrahepatic biliary ducts is likely secondary to reservoir effect after cholecystectomy. The pancreas and adrenal glands are normal. Multiple scattered, subcentimeter hypoattenuating lesions throughout the spleen are too small to characterize, but unchanged. The kidneys enhance symmetrically. ??There is a right renal cyst. ??No hydronephrosis. ??The urinary bladder is decompressed. There are postsurgical changes of hysterectomy and bilateral salpingo-oophorectomy. ??An irregular, hyperenhancing lesion centered at the vaginal cuff measuring 3.2 x 2.8 cm is not significantly changed (series 2, image 261). An additional, hyperdense, irregular soft tissue nodule surrounding a surgical clip within the retroperitoneum posterior to the inferior vena cava measures 1.9 cm, unchanged (series 2, image 195). ??An adjacent, prominent aortocaval node measuring 1.1 cm is unchanged. Omental nodularity is unchanged. ??For example, a left omental nodule measuring 1.4 cm on series 2, image 171). There are postsurgical changes of right hemicolectomy and left lower quadrant loop colostomy formation. ??There are unchanged, hyperenhancing focal lesions along the serosa of the sigmoid colon, similar to prior (series 2, image 243, 247), compatible with peritoneal deposits. ??No evidence of bowel obstruction. ??No free fluid or air. The abdominal aorta is normal in caliber. ??No suspicious osseous lesions identified. Procedure Note Frantz Valera MD - 11/14/2023 EXAMINATION: CT CHEST ABDOMEN PELVIS W CONTRAST HISTORY: Neuroendocrine tumor of the ileum TECHNIQUE: Computed tomographic images of the chest, abdomen, and pelvis were obtained following administration of intravenous 75 ml Optiray-350. COMPARISON: CT chest abdomen pelvis 08/16/2023, 05/24/2023 FINDINGS: CHEST: There is an 8 mm, high density nodule or lymph node within the medial right lower lobe (series 3, image 74). This is unchanged from the most recent prior examination, but increased in size compared to 12/13/2022 when it measured 6 mm. No pneumonic consolidation, pleural effusion, or pneumothorax. Central airways are normal in caliber. No supraclavicular, axillary, mediastinal, or hilar lymphadenopathy. Normal heart size. 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 No pericardial effusion. Right internal jugular venous approach port catheter terminates at the superior cavoatrial junction. An aberrant right subclavian artery is noted. There is chronic thickening of the esophagus above the level of the artery, which may represent chronic dysphagia lusoria. ABDOMEN/PELVIS: Multiple hepatic lesions are not significantly changed from prior. For example: - Hepatic segment 4, 3.0 x 3.0 cm (series 2, image 125) - Hepatic segment 7, 3.1 cm (series 2, image 1:30) The gallbladder surgically absent. Mild prominence of the intra and extrahepatic biliary ducts is likely secondary to reservoir effect after cholecystectomy. The pancreas and adrenal glands are normal. Multiple scattered, subcentimeter hypoattenuating lesions throughout the spleen are too small to characterize, but unchanged. The kidneys enhance symmetrically. There is a right renal cyst. No hydronephrosis. The urinary bladder is decompressed. There are postsurgical changes of hysterectomy and bilateral salpingo-oophorectomy. An irregular, hyperenhancing lesion centered at the vaginal cuff measuring 3.2 x 2.8 cm is not significantly changed (series 2, image 261). An additional, hyperdense, irregular soft tissue nodule surrounding a surgical clip within the retroperitoneum posterior to the inferior vena cava measures 1.9 cm, unchanged (series 2, image 195). An adjacent, prominent aortocaval node measuring 1.1 cm is unchanged. Omental nodularity is unchanged. For example, a left omental nodule measuring 1.4 cm on series 2, image 171). There are postsurgical changes of right hemicolectomy and left lower quadrant loop colostomy formation. There are unchanged, hyperenhancing focal lesions along the serosa of the sigmoid colon, similar to prior (series 2, image 243, 247), compatible with peritoneal deposits. No evidence of bowel obstruction. No free fluid or air. The abdominal aorta is normal in caliber. No suspicious osseous lesions identified. IMPRESSION: 1. Subcentimeter nodule or lymph node within the right medial lower lobe, unchanged from the most recent prior examination but slightly increased in size compared to 12/13/2022, potentially representing a site of metastatic disease. 2. Stable hepatic metastases, peritoneal and omental deposits, and retroperitoneal lymphadenopathy. Dictated by: Buddy Trejo MD The radiology attending physician has personally reviewed this study, and had reviewed and/or edited this written report and agrees with it. Electronically signed by: Frantz Valera M.D. Eren Cr MD IMG CT PROCEDURES [...] (HCC) documented in this encounter Care Teams Associate Relations Specialist Relationship Specialty Start Date End Date Julio César Briseno MD PCP - General 10/01/16 Eren Cr MD Referring Physician Medical Oncology 11/25/18 Yohana Bowen MD Radiation Oncologist Radiation Oncology 11/25/18 Alejo Mi MD [address] [place] [address] Referring Physician Nephrology 03/07/23 documented as of this encounter
--- OUTSIDE RECORDS SUMMARY | 2024-06-25 22:07 | XMS_ITS | Encounter Summary ---
Author Organization [facility] Address [address] [place] [address] Phone Care Team Providers Care Screen Printing Inspector Name Role Phone Julio César Briseno MD Primary Care Provider Eren Cr MD Unavailable [phone] Yohana Bowen MD Unavailable Alejo Mi MD Unavailable [phone] Encounter Details Date Type Department Care Team (Late st Contact Info) Description 10/23/2023 Orders Only [facility] Oncology [address] [place] [address] Eren Cr MD [address] [place] [address] Neuroendocrine carcinoma (HCC) (Primary Dx); Malignant neoplasm [...] on file 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 Gender Identity Not on file Sexual Orientation Straight 02/19/2021 9: 29 AM CDT Occupation Industry Job Start Date Job End Date retired Not on file Not on file Not on file documented as of this encounter Plan of Treatment Not on file documented as of this encounter Results * Magnesium (10/29/2023 10:33 AM CDT) Magnesium 1.9 1.4 - 2.5 mg/dL Comment:Testing performed by : [address] [address] Blood 10/29/2023 10:3 3 AM CDT 10/29/2023 10:35 AM CDT Eren Cr MD LAB BLOOD ORDERABLES Final Re sult [facility] [place] [address] * (ABNORMAL) Comprehensive metabolic panel (10/29/2023 10:33 AM CDT) Sodium 139 135 - 145 mmol/L Comment:Testing performed by : [address] [address] Potassium, pl 4.2 3.3 - 4.9 mmol/L [facility] Chloride 109 97 - 110 mmol/L [facility] CO2 25 22 - 32 mmol/L [facility] Anion gap 5 2 - 15 mmol/L [facility] BUN 15 6 - 25 mg/dL [facility] Creatinine 1.11(H) 0.60 - 1.10 mg/dL [facility] Glucose 91 70 - 199 mg/dL [facility] Comment: Interpretive Data Fasting glucose >/= [...] 2022. Calcium 10.1 8.5 - 10.3 mg/dL [facility] Bilirubin, total 0.5 0.1 - 1.2 mg/dL [facility] Protein, pl 6.2(L) 6.5 - 8.5 g/dL [facility] Albumin 3.9 3.5 - 5.0 g/dL [facility] Alk phos 66 40 - 130 Units/L [facility] ALT 19 7 - 45 Units/L [facility] AST 27 10 - 45 Units/L [facility] Blood 10/29/2023 10:3 3 AM CDT 10/29/2023 10:35 AM CDT us Eren Cr MD LAB BLOOD ORDERABLES Final Re sult [facility] Department [place] [address] * (ABNORMAL) CBC with auto differential (10/29/2023 10:33 AM CDT) [facility] WBC 3.1(L) 3.8 - 9.9 K/cumm Comment:Testing performed by : [facility], [address] [place] [address] Hgb 10.9(L) 11.9 - 15.5 g/dL [facility] Comment:Testing performed by : [address] [address] Hct 33.3(L) 35.6 - 45.5 % [facility] Comment:Testing performed by : [address] [address] Plt 94(L) 150 - 400 K/cumm [facility] Comment:Testing performed by : [address] [address] MPV 10.4 9.1 - 12.3 fL [facility] RBC 3.46(L) 3.90 - 5.20 M/cumm [facility] MCV 96.2 81.3 - 96.4 fL [facility] MCH 31.5 27.1 - 33.3 pg [facility] MCHC 32.7 32.3 - 35.7 g/dL [facility] RDW CV 14.7 11.1 - 14.9 % [facility] RDW SD 51.2(H) 35.7 - 48.1 fL [facility] NRBC abs 0.00 0.00 - 0.01 K/cumm [facility] Blood 10/29/2023 10:3 3 AM CDT 10/29/2023 10:35 AM CDT Eren Cr MD LAB BLOOD ORDERABLES Final Re sult [facility] [place] [address] * (ABNORMAL) Chromogranin A (10/29/2023 10:33 AM CDT) Chromogranin A 667(H) <93 ng/mL [facility] Comment: Impaired renal or hepatic function or treatment with proton pump inhibitors may result in artifactual elevations of Chromogranin A. ADDITIONAL INFORMATION The testing method is a homogeneous time-resolved immunofluorescent assay manufactured by [employer] and performed on the Pictela KrSilvercaror Compact Plus. ? Values obtained with different [...] examination and other findings. Test Performed by: [facility] [address] [place] [address] Instrument Maker And Repairer: Immanuel Novak M.D. Ph.D.; CLIA# [id number] Blood 10/29/2023 10:3 3 AM CDT 10/29/2023 12:05 PM CDT Eren Cr MD LAB BLOOD ORDERABLES Final Re sult Performing Organization Address City/[facility]/ZIP Co de Phone Number JASON [facility] [place] [address] [facility] * (ABNORMAL) Vitamin D 25 hydroxy (10/29/2023 10:33 AM CDT) Pathologist [facility] Vitamin D 25-OH 21(L) 30 - 80 ng/mL Blood 10/29/2023 10:3 3 AM CDT 10/29/2023 11:49 AM CDT Eren Cr MD LAB BLOOD ORDERABLES Final Re sult Performing Organization Address [facility] Co de Phone Number JASON [facility] [place] [address] * Phosphorus (10/29/2023 10:33 AM CDT) Phosphorus, pl 2.3 2.3 - 4.5 mg/dL Comment:Testing performed by : [facility], [address] [place] [address] Blood 10/29/2023 10:3 3 AM CDT 10/29/2023 10:35 AM CDT us Eren Cr MD LAB BLOOD ORDERABLES Final Re sult JAS[facility] [place] [address] * Lipid panel (10/29/2023 10:33 AM CDT) Pathologist [facility] Cholesterol 121 30 - 199 mg/dL Comment: Interpretive Data [...] Data was last revised on 2018. Triglycerides 115 <=149 mg/dL [facility] Comment: Interpretive Data [...] Data was last revised on 2018. HDL 50 >=40 mg/dL [facility] Comment: Interpretive Data Ages < or [...] was last revised on 2018. LDL, calculated 48 <=129 mg/dL [facility] Comment: Interpretive Data Ages < or [...] was last revised on 2018. Non-HDL Cholesterol 71 mg/dL [facility] Comment: Interpretive Data Ages < or [...] was last revised on 2018. Chol/HDL ratio 2 [facility] Blood 10/29/2023 10:3 3 AM CDT 10/29/2023 11:49 AM CDT Eren Cr MD LAB BLOOD ORDERABLES Final Re sult Performing Organization Address [facility] [[email or web address]] de Phone Number [facility] [place] [address] * Protein / creatinine ratio, urine, random (10/29/2023 10:30 AM CDT) Protein, ur, quant 26.2 mg/dL Comment: Interpretive Data No reference range established. Current interpretive data was last revised 2018. Creatinine Ur 167.8 mg/dL [facility] Comment: Interpretive Data No reference range established. Current interpretive data was last revised 2018. 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) Neuro-endocrine carcinoma (HCC) Other malignant neoplasm of unspecified site documented in this encounter Orders Appointment Requests Count Last Ordered Date Fi rst Ordered Date [facility]N CLINIC APPOINTMENT REQUEST 1 024 [facility] INJECTION APPOINTMENT REQUEST 1 10/07 [facility] LAB APPOINTMENT 1 10/29/2023 ON[facility] TAKE HOME STUDY DRUG APPT 1 10/29/19 24 documented in this encounter Care Teams Screen Printing Inspector Relationship Specialty Start Date End Date Julio César Briseno MD PCP - General 10/01/16 Eren Cr MD Referring Physician Medical Oncology 11/25/18 Yohana Bowen MD Radiation Oncologist Radiation Oncology 11/25/18 Alejo Mi MD [address] [place] [address] Referring Physician Nephrology 03/07/23 documented as of this encounter
--- OUTSIDE RECORDS SUMMARY | 2024-06-25 22:07 | XMS_ITS | Encounter Summary ---
Author Organization [facility] Healthcare Address [address] [place] [address] Care Team Providers Care Performance Improvement Consultant Name Role Phone Julio César Briseno MD Primary Care Provider [phone] Eren Cr MD Unavailable [phone] Yohana Bowen MD Unavailable Alejo Mi MD Unavailable [phone] Encounter Details Date Type Department Care Team (Latest Contact Info) Description 11/26/2023 11:15 AM CDT - 11/26/2023 11:59 PM CDT Hospital Encounter [address] [address] Neuroendocrine carcinoma (HCC); 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); Neuro-endocrine carcinoma (HCC) Discharge Disposition: Discharge to [...] on file 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 Gender Identity Not on file Sexual Orientation [...] nightly 0.9 % sodium chloride ([facility] sodium chloride 0.9%) injectionIndicati ons:line care Infuse 10 mL into a venous catheter once a week On saturday 4 0.9 % sodium chloride (sodium chloride 0.9%) 0.9% infusion 05/22/2023 4 ascorbic acid, vitamin C, 500 mg capsuleIndication s:supplement Take 1 tablet by mouth policy writer typist before breakfast 07/04/2016 4 clotrimazole-beta methasone (LOTRISONE) cream Apply 1 Application topically daily as needed (rash) 4 coenzyme [id number] 100-5 mg-unit capsuleIndication s:supplement Take 1 tablet by mouth policy writer typist before breakfast 4 diphenoxylate-atr opine (LOMOTIL) 2.5-0.025 mg per tabletIndications :Chemotherapy-Ind uced Diarrhea Take 1 tablet by mouth 4 (four) times a day as needed for diarrhea 90 tablet 02/14/[address] (CYMBALTA) 30 mg capsule Take 1 capsule (30 mg total) by mouth daily 30 capsule 2 04/24/2019 4 ergocalciferol (VITAMIN D) 50,000 unit capsuleIndication s:Vitamin D Deficiency Take 1 capsule (50,000 Units total) by mouth once a week 12 capsule 2 11/26/2023 4 fluticasone propionate (FLONASE) 50 mcg/actuation nasal sprayIndications: Allergic Rhinitis Administer 2 sprays into each nostril daily as needed for rhinitis or allergies 4 heparin 100 unit/mL solutionIndicatio ns:Maintain Patency of Indwelling Vascular Catheter Infuse 5 mL (500 Units total) into a venous catheter once a week Fluids every -Heparin to flush 4 [facility] cabozantinib/plac abdulkadir (08-122/A021 602) 20 mg tabletIndications :cancer study Take 1 tablet (20 mg total) by mouth nightly Take on an empty stomach (no food for 2 hours before and 1 hour after each dose).?? Avoid [place]'s Wort, grapefruit products and [place] oranges while on treatment. placed on hold [...] Priority Date/Time Associated Diagnosis Comments EGFR STAT 11/26/2023 11:20 AM CDT Neuro-endocrine carcinoma (HCC) DIFFERENTIAL AUTO STAT 11/26/2023 11: 20 AM CDT Neuro-endocrine carcinoma (HCC) CHROMOGRANIN A Routine 11/26/2023 11:20 AM CDT 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) CBC WITH AUTO DIFFERENTIAL STAT 11/26/2023 11:20 AM CDT Neuro-endocrine carcinoma (HCC) VITAMIN D 25 HYDROXY Routine 11/26/2023 11:20 AM CDT 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) PHOSPHORUS Routine 11/26/2023 11:20 AM CDT 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) MAGNESIUM STAT 11/26/2023 11:20 AM CDT Neuro-endocrine carcinoma (HCC) LIPID PANEL Routine 11/26/2023 11:20 AM CDT 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) COMPREHENSIVE METABOLIC PANEL STAT 11/26/2023 11:20 AM CDT Neuro-endocrine carcinoma (HCC) documented in this encounter Results * (ABNORMAL) eGFR (11/26/2023 11:20 AM CDT) eGFR 47(L) >=60 mL/min/1. 73 m2 Comment: Interpretive Data [...] interpretive data was last reviewed 2021. Blood 11/26/2023 11:2 0 AM CDT 11/26/2023 11:21 AM CDT Eren Cr MD LAB BLOOD ORDERABLES Final Re sult [facility] [place] [address] * Differential, auto (11/26/2023 11:20 AM CDT) [facility] Neutrophil abs 3.0 1.5 - 6.5 K/cumm Comment:Testing performed by : [facility], [address] [place] [address] Imm gran abs 0.0 0.0 - 0.1 K/cumm [facility] Lymphocyte abs 1.2 0.8 - 3.3 K/cumm [facility] Monocyte abs 0.5 0.2 - 0.8 K/cumm [facility] Eosinophil abs 0.2 0.0 - 0.5 K/cumm [facility] Basophil abs 0.0 0.0 - 0.1 K/cumm [facility] Neutrophil pct 61.1 % [facility] Comment: Interpretive Data Percent cell count reference ranges are not reported, since discordance with absolute values may lead to misinterpretation of CBC data. Current Interpretive Data was last revised on 2017. Imm gran pct 0.2 % [facility] Comment: Interpretive Data Percent cell count reference ranges are not reported, since discordance with absolute values may lead to misinterpretation of CBC data. Current Interpretive Data was last revised on 2017. Lymphocyte pct 24.2 % [facility] Comment: Interpretive Data Percent cell count reference ranges are not reported, since discordance with absolute values may lead to misinterpretation of CBC data. Current Interpretive Data was last revised on 2017. Monocyte pct 10.1 % [facility] Comment: Interpretive Data Percent cell count reference ranges are not reported, since discordance with absolute values may lead to misinterpretation of CBC data. Current Interpretive Data was last revised on 2017. Eosinophil pct 3.6 % [facility] Comment: Interpretive Data Percent cell count reference ranges are not reported, since discordance with absolute values may lead to misinterpretation of CBC data. Current Interpretive Data was last revised on 2017. Basophil pct 0.8 % [facility] Comment: Interpretive Data Percent cell count reference ranges are not reported, since discordance with absolute values may lead to misinterpretation of CBC data. Current Interpretive Data was last revised on 2017. Blood 11/26/2023 11:2 0 AM CDT 11/26/2023 11:21 AM CDT us Eren Cr MD LAB BLOOD ORDERABLES Final Re sult [facility] [place] [address] * (ABNORMAL) CBC with auto differential (11/26/2023 11:20 AM CDT) WBC 5.0 3.8 - 9.9 K/cumm Comment:Testing performed by : [address] [address] Hgb 10.7(L) 11.9 - 15.5 g/dL [facility] Comment:Testing performed by : [address] [address] Hct 33.5(L) 35.6 - 45.5 % [facility] Comment:Testing performed by : [facility], [address] [place] [address] Plt 101(L) 150 - 400 K/cumm [facility] Comment:Testing performed by : [facility], [address] [place] [address] MPV 10.7 9.1 - 12.[address] [facility] RBC 3.46(L) 3.90 - 5.20 M/cumm [facility] MCV 96.8(H) 81.3 - 96.[address] [facility] MCH 30.9 27.1 - 33.[address] [facility] MCHC 31.9(L) 32.3 - 35.7 g/dL [facility] RDW CV 15.2(H) 11.1 - 14.9 % [facility] RDW SD 53.6(H) 35.7 - 48.[address] [facility] NRBC abs 0.00 0.00 - 0.01 K/cumm [facility] Blood 11/26/2023 11:2 0 AM CDT 11/26/2023 11:21 AM CDT Eren Cr MD LAB BLOOD ORDERABLES Final Re sult [facility] [place] [address] * (ABNORMAL) Comprehensive metabolic panel (11/26/2023 11:20 AM CDT) [facility] Sodium 137 135 - 145 mmol/L Comment:Testing performed by : [facility], [address] [place] [address] Potassium, pl 4.3 3.3 - 4.9 mmol/L [facility] Chloride 105 97 - 110 mmol/L [facility] CO2 26 22 - 32 mmol/L [facility] Anion gap 6 2 - 15 mmol/L [facility] BUN 12 6 - 25 mg/dL [facility] Creatinine 1.21(H) 0.60 - 1.10 mg/dL [facility] Glucose 124 70 - 199 mg/dL [facility] Comment: Interpretive Data Fasting glucose >/= [...] 2022. Calcium 10.1 8.5 - 10.3 mg/dL [facility] Bilirubin, total 0.6 0.1 - 1.2 mg/dL [facility] Protein, pl 6.3(L) 6.5 - 8.5 g/dL [facility] Albumin 4.2 3.5 - 5.0 g/dL [facility] Alk phos 67 40 - 130 Units/L [facility] ALT 20 7 - 45 Units/L [facility] AST 33 10 - 45 Units/L [facility] Blood 11/26/2023 11:2 0 AM CDT 11/26/2023 11:21 AM CDT Eren Cr MD LAB BLOOD ORDERABLES Final Re sult [facility] [place] [address] * Magnesium (11/26/2023 11:20 AM CDT) Magnesium 1.7 1.4 - 2.5 mg/dL Comment:Testing performed by : [facility], [address] [place] [address] Blood 11/26/2023 11:2 0 AM CDT 11/26/2023 11:21 AM CDT Eren Cr MD LAB BLOOD ORDERABLES Final Re sult [facility] [place] [address] * Lipid panel (11/26/2023 11:20 AM CDT) Cholesterol 132 30 - 199 mg/dL Comment: Interpretive Data [...] on 2018. Triglycerides 111 <=149 mg/dL [facility] Comment: Interpretive Data Ages < or [...] Data was last revised on 2018. HDL 55 >=40 mg/dL [facility] Comment: Interpretive Data Ages < or [...] on 2018. LDL, calculated 55 <=129 mg/dL [facility] Comment: Interpretive Data Ages < or [...] was last revised on 2018. Non-HDL Cholesterol 77 mg/dL [facility] Comment: Interpretive Data Ages < or [...] last revised on 2018. Chol/HDL ratio 2 [facility] Blood 11/26/2023 11:2 0 AM CDT 11/26/2023 1:03 PM CDT Eren Cr MD LAB BLOOD ORDERABLES Final Re sult Performing Organization Address City/[facility]/[place] [address] * Phosphorus (11/26/2023 11:20 AM CDT) Pathologist [facility] Phosphorus, pl 2.8 2.3 - 4.5 mg/dL Comment:Testing performed by : [address] [address] Blood 11/26/2023 11:2 0 AM CDT 11/26/2023 11:21 AM CDT Eren Cr MD LAB BLOOD ORDERABLES Final Re sult Performing Organization Address [facility] [place] [address] * (ABNORMAL) Vitamin D 25 hydroxy (11/26/2023 11:20 AM CDT) Pathologist [facility] Vitamin D 25-OH 19(L) 30 - 80 ng/mL Blood 11/26/2023 11:2 0 AM CDT 11/26/2023 1:03 PM CDT Eren Cr MD LAB BLOOD ORDERABLES Final Re sult Performing Organization Address City/[facility]/ZIP Co de Phone Number [facility] [place] [address] * (ABNORMAL) Chromogranin A (11/26/2023 11:20 AM CDT) Chromogranin A 2279(H) <93 ng/mL [facility] Comment: Impaired renal or hepatic function or treatment with proton pump inhibitors may result in artifactual elevations of Chromogranin A. ADDITIONAL INFORMATION The testing method is a homogeneous time-resolved immunofluorescent assay manufactured by [employer] and performed on the [employer] Compact Plus. ? Values obtained with different [...] examination and other findings. Test Performed by: [place] [address] Search Engine Optimizer: Immanuel Novak M.D. Ph.D.; CLIA# [id number] Blood 11/26/2023 11:2 0 AM CDT 11/26/2023 2:16 PM CDT us Eren Cr MD LAB BLOOD ORDERABLES Final Re sult [facility] [place] [address] 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
--- OUTSIDE RECORDS SUMMARY | 2024-06-25 22:07 | XMS_ITS | Encounter Summary ---
Author Organization [facility] Address [address] [place] [address] Phone Care Team Providers Care Improvement Spec Name Role Phone Julio César Briseno MD Primary Care Provider [phone] Eren Cr MD Unavailable Yohana Bowen MD Unavailable [place] Ramos MD Unavailable [phone] Reason for Visit * Episode Based Medications (Routine) - Closed Specialty Diagnoses / Procedures Referred By Contac t Referred To Contact Diagnoses Neuro-endocrine carcinoma (HCC) Procedures study [id number] phase III cabozantinib Eren Cr MD [address] [place] [address] Phone: tel: fax: [facility] [address] [facility] 7th [place] [address] Phone: tel: Referral ID Status Reason Start Date Expiration Date Visits Re quested Visits Authorized [id number] Closed 06/21/2021 06/26/2024 1 99 Encounter Details Date Type Department Care Team (Latest Contact Info) Description 10/29/2023 1:00 PM CDT [facility] Pick-Up/CTRU Staff Certified Nurse Midwife [facility] [address] [place] [address] Neuro-endocrine carcinoma (HCC) (Primary Dx) Social History [...] on file 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 Gender Identity Not on file Sexual Orientation [...] Ordered Date First Ordered Date [id number] cabozantinib (2018-02-122/Q992116) tablet 20 mg 1 10/29/2023 Nursing Count Last Ordered Date First Orde red Date ONCBCN STUDY COMMUNICATION 1 10/29/2023 ONCBCN TREATMENT PARAMETERS 1 10/29/2023 Appointment Requests Count Last Ordered Date Fi rst Ordered Date ONCBCN TAKE HOME STUDY DRUG APPT 1 10/29/19 24 documented in this encounter Care Teams Improvement Spec Relationship Specialty Start Date End Date Julio César Briseno MD PCP - General 10/01/16 Eren Cr MD Referring Physician Medical Oncology 11/25/18 Yohana Bowen MD Radiation Oncologist Radiation Oncology 11/25/18 Alejo Mi MD [address] [place] [address] Referring Physician Nephrology 03/07/23 documented as of this encounter
--- OUTSIDE RECORDS SUMMARY | 2024-06-25 22:07 | XMS_ITS | Encounter Summary ---
Author Organization [facility] Address [address] [place] [address] Phone Care Team Providers Care Fence Maker Name Role Phone Julio César Briseno MD Primary Care Provider [phone] Eren Wu MD Unavailable [phone] Yohana Bowen MD Unavailable [place]jo Ramos MD Unavailable [phone] Reason for Visit * Episode Based Medications (Routine) - Closed Specialty Diagnoses / Procedures Referred By Contac t Referred To Contact Diagnoses Neuro-endocrine carcinoma (HCC) Procedures study [id number] phase III cabozantinib Eren Wu MD [address] [facility] [address] [place] [address] Phone: tel: fax: [facility] [address] [facility] 7th [place] [address] Phone: tel: Referral ID Status Reason Start Date Expiration Date Visits Re quested Visits Authorized [id number] Closed 06/21/2021 06/26/2024 1 99 Encounter Details Date Type Department Care Team (Late st Contact Info) Description 11/26/2023 11:30 AM CDT Office Visit 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 Gender Identity Not on file Sexual Orientation Straight 02/19/2021 9: 29 AM CDT Occupation Industry Job Start Date Job End Date retired Not on file Not on file Not on file documented as of this encounter Last Filed Vital Signs Vital Sign Reading Time Taken Comments Blood Pressure 159/66 11/26/2023 11:36 AM CDT Pulse 78 11/26/2023 11:36 AM CDT Temperature 36.7 ??C (98 ??F) 11/26/2023 11:36 AM CDT Respiratory Rate 16 11/26/2023 11:36 AM CDT Oxygen Saturation 91% 11/26/2023 11:36 AM CDT Inhaled Oxygen Concentration - - Weight 77.1 kg (170 lb) 11/26/2023 11:36 AM CDT Height - - Body Mass Index 30.11 09/06/2023 2:48 PM HYDRAULIC TECHNICIAN documented in this encounter Progress Notes * Eren Wu MD - 11/26/2023 11:30 AM CDT Images from the original note were not included. MEDICAL ONCOLOGY OUTPATIENT ROV NOTE La Chung : 1950 DATE OF VISIT: 11/26/23 Oncology History Overview Note DIAGNOSIS: well differentiated [...] time, she also underwent right colectomy in [facility] [place] by Dr. Greyson Reeves. Biopsy [...] per pt d/t rectal drainage and pain) 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) Neuroendocrine tumor 01/06/2018 Initial Diagnosis Neuroendocrine tumor INTERVAL HISTORY: La Chung is a 73 y.o. 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 She was last seen in clinic 10/29/2023 and received Cycle 29 cabozantinib (open label) on CABINET study. She had scans done 11/13/2023 which showed stable disease. I Today, she is here with her sister and notes: - improved diarrhea and taking her immodium - no fevers, chills - no SOB, chest pain, cough, abdominal pain - no flushing - no anorexia. Loss of appetite - no rectal pain Current Outpatient Medications Medication Instructions 0.9 % sodium chloride ([facility] sodium chloride 0.9%) injection 10 mL, intravenous, Weekly, On saturday 0.9 % sodium chloride (sodium chloride 0.9%) 0.9% infusion amLODIPine (NORVASC) 5 mg tablet ascorbic acid, vitamin C, 500 mg capsule 1 tablet, oral, Daily (early AM) cholecalciferol (VITAMIN D-3) 1,000 Units, oral, Daily clotrimazole-betamethasone (LOTRISONE) cream Apply 1 Application topically daily as needed (rash) coenzyme [id number] 100-5 mg-unit capsule 1 tablet, oral, Daily (early AM) denosumab (Xgeva) 120 mg/1.7 [...] allergies heparin 100 unit/mL solution 5 mL, intravenous, Weekly, Fluids every - Heparin to flush [facility] cabozantinib/placebo (/[id number]) 20 mg, oral, Nightly, Take on an empty stomach (no food for 2 hours before and 1 hour after each dose). Avoid [place]'s Wort, grapefruit products and [place] oranges while on treatment. placed on hold 09/26/22 for covid levothyroxine (SYNTHROID) 100 mcg, oral, Daily lidocaine-prilocaine (lidocaine-prilocaine) cream topical, As needed, Apply [...] HCT) 20-12.5 mg per tablet 1 tablet, oral, Every morning ondansetron (ZOFRAN) 8 mg, oral, [...] improved Objective ECOG PS: 1 VITALS: BP 159/66 (BP Location: Left arm) Pulse 78 Temp 36.7 ??C (98 ??F) (Oral) Resp 16 Wt77.1 kg (170 lb) SpO2 91% BMI 30.11 kg/m?? Physical Exam Vitals reviewed. Exam conducted with a statistician present. Constitutional: General: She is not in [...] guarding. Comments: Ostomy in place, stool is loose Musculoskeletal: Cervical back: Normal range of motion. [...] Lab History Latest Ref Rng & Units 09/26/2023 13:03 10/29/2023 10:33 11/13/2023 11:25 11/26/2023 11:20 Labs - Hematology WBC 3.8 - 9.9 K/cumm 3.6 3.1 3.5 5.0 Total Hb, POC 11.9 - 15.5 g/dL 11.8 10.9 11.0 10.7 Hct 35.6 - 45.5 % 35.8 33.3 33.1 33.5 Plt 150 - 400 K/cumm 90 94 102 101 Neutrophil abs 1.5 - 6.5 K/cumm 2.4 2.0 2.3 3.0 Lymphocytes, abs 0.8 - 3.3 K/cumm 0.5 0.3 0.5 1.2 Chem/LFT Lab History Latest Ref Rng & Units 09/26/2023 13:03 10/29/2023 10:33 11/13/2023 11:25 11/26/2023 11:20 Labs-Chem/LFT Sodium 135 - 145 mmol/L 138 139 139 137 Creatinine 0.60 - 1.10 mg/dL 1.24 1.11 1.03 1.21 Bilirubin, total 0.1 - 1.2 mg/dL 0.7 0.5 0.4 0.6 AST 10 - 45 Units/L 39 27 25 33 ALT 7 - 45 Units/L 20 19 16 20 Alk phos 40 - 130 Units/L 69 66 73 67 CrCl- Actual Body Weight (Cockcroft-Gault) 47.8 52.9 56.2 48.9 Tumor Marker History Latest Ref Rng & Units 07/25/2023 09:47 08/27/2023 09:38 09/26/2023 13:03 10/29/2023 10:33 Tumor Markers Chromogranin A <93 ng/mL 1970 3023 0793 316 RADIOGRAPHIC/DIAGNOSTIC REVIEW: CT chest abdomen pelvis with [...] per CABINET trial with dose 20mg daily. coordinator saw her today for pill count and tox check - We reviewed her labs notable for Cr 1.21, normal LFT Alk phos 67, AST 33, ALT 20 and electrolytes, WBC 5, ANC 3, Hgb 10.7, PLT 101. CGA was 667 10/29/2023 - We will plan to proceed with [...] setting of NET and her medications. - improved with immodium 4. Hypothyroidism with TSH elevated - Managed per endocrinology. 5. Vitamin D insufficiency/Deficiency - Vit D checked 06/11 16. Pt on ergocalciferol 30299 units weekly. -- she states she is still on this. - followed by nephrology 6. Renal function - Creatinine 1.21 - follows with Nephrology 7. Right TM perforation - Follow up with ENT, s/p surgery. 8. Hyperparathyroidism - Calcium 10.1 - May be secondary to CKD, denosumab use. - On vit d supplementation. - nephrology following. 9. Eye disorder, grade 1, watery eyes - Not a reported side effect of cabozantinib, appears unrelated at this time. - F/u Ophthalmology as needed 10. HTN - Started on losartan recently per her PCP. - G1 HTN today. BP 159/66 Eren Wu MD Jump to the Problem List Disease Status Documentation for mCODE Neoplastic Disease Neuroendocrine carcinoma (CMS/HCC) (HCC) Cancer Disease Assessment for mCODE Disease status: stable Reason for disease status: symptoms, physical exam, lab results Date of cancer disease status assessment: 10/29/23 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) Cancer [...] ICARE data: No change in treatment plan Jump to the Problem List Disease Status Documentation for mCODE Neoplastic Disease Neuroendocrine carcinoma (CMS/HCC) (HCC) Cancer Disease Assessment for mCODE Disease status: stable Reason for disease status: symptoms, physical exam, lab results Date of cancer disease status assessment: 10/29/23 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) Cancer Disease Assessment for mCODE Disease status: stable Reason for disease status: symptoms, physical exam, lab results, imaging Date of cancer disease status assessment: 03/07/23 Neuro-endocrine carcinoma (HCC) Cancer Disease Assessment for [...] in treatment plan documented in this encounter Miscellaneous Notes * Addendum Note - Eren Wu MD - 11/26/2023 11:30 AM CDTAddended by: EREN WU on: 11/26/2023 12:26 PM Modules accepted: Orders documented in this encounter Plan of Treatment Not on file documented as of this encounter Visit Diagnoses Diagnosis Neuro-endocrine carcinoma (HCC)- Primary Other malignant neoplasm of unspecified site 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
--- OUTSIDE RECORDS SUMMARY | 2024-06-25 22:07 | XMS_ITS | Encounter Summary ---
Author Organization [facility] Address [address] [place] [address] Phone Care Team Providers Care Shell Machine Operator Name Role Phone Julio César Briseno MD Primary Care Provider [phone] Eren Cr MD Unavailable [phone] Yohana Bowen MD Unavailable [place] Ramos MD Unavailable [phone] Reason for Visit * Episode Based Medications (Routine) - Closed Specialty Diagnoses / Procedures Referred By Contac t Referred To Contact Diagnoses Neuro-endocrine carcinoma (HCC) Procedures study [id number] phase III cabozantinib Eren Cr MD [address] [place] [address] Phone: tel: fax: [facility] at [facility] and [facility] [address] [facility] 7th [place] [address] Phone: tel: Referral ID Status Reason Start Date Expiration Date Visits Re quested Visits Authorized [id number] Closed 06/21/2021 06/26/2024 1 99 Encounter Details Date Type Department Care Team (Latest Contact Info) Description 12/24/2023 12:00 PM CDT Research Med Pick-Up/CTRU Care Director [facility] Oncology [address] [place] [address] Neuro-endocrine carcinoma (HCC) Social History Tobacco Use [...] on file 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
--- OUTSIDE RECORDS SUMMARY | 2024-06-25 22:07 | XMS_ITS | Encounter Summary ---
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) Procedures [place] DENOSUMAB INJECTION DENOSUMAB (XGEVA) Eren Cr MD [address] [facility] [address] [place] [address] Phone: tel: fax: [facility] at [facility] and [facility] [address] [facility] 7th [place] [address] Phone: tel: Referral ID Status Reason Start Date Expiration Date V isits Requested Visits Authorized [id number] Authorized 03/02/2019 10/06/2024 1 60 Encounter Details Date Type Department Care Team (Late st Contact Info) Description 10/29/2023 11:00 AM CDT Infusion [facility] Oncology [address] [place] [address] Neuro-endocrine carcinoma (HCC) (Primary Dx); Neuroendocrine carcinoma (HCC); 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); 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); Dehydration; Hypophosphatemia Social History Tobacco Use Types Packs/Day Years [...] on file 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 female who presents for IVFs Pre-treatment Nursing Assessment Nursing Assessment LOC: Alert, Awake Fatigue: Occassional Any falls since your last visit?: No Orientation: Oriented x4 Behavior: Calm Speech: Clear Language: No aphasia Vision: At baseline Peripheral Neuropathy: No Oral Mucosa Grade: Normal (0) Pt states has potential to be ?: No Shortness of Breath?: No Lungs auscultated PRN: No Pt is on oxygen?: No Cough: Absent Appetite: Good Have You Recently Lost Weight Without Trying?: No Nausea/Vomiting: No Abdomen: Soft Diarrhea: No Constipation: No Last BM Date: 10/29/23 Skin Condition/Temp: Warm, Dry Rash Location: denies Swelling: No BP: 144/78 Temp: 36.6 ??C (97.8 ??F) Temp src: Oral Pulse: 70 Resp: 16 SpO2: 97 % Weight: 75.4 kg (166 lb 3.2 oz) Pain Score: 0 - No pain Treatment Patient: met treatment parameters Pre blood return: Mary Chung tolerated treatment well. Patient was frequently observed and monitored throughout the administration of their treatment. Post blood return: Brisk IV access post infusion: NS Patient Education Treatment Education: Information/teaching given to patient including symptom management and processand procedure related to today's visit Response: Verbalizes understanding Discharge Plan Discharge instructions given to patient. Future appointments given and reviewed with treatment plan. Discharge Mode: Ambulatory Accompanied by: Self Discharged To: Home Oncology Nursing Note [facility] La Chung is a 72 y.o. female who presents for the following [...] is on oxygen?: No Cough: Absent Appetite: Good Have You Recently Lost Weight Without Trying?: No Nausea/Vomiting: No Abdomen: Soft Diarrhea: No Constipation: No Last BM Date: 10/29/23 Skin Condition/Temp: Warm, Dry Rash Location: denies Swelling: No BP: 144/78 Temp: 36.6 ??C (97.8 ??F) Temp src: Oral Pulse: 70 Resp: 16 SpO2: 97 % Weight: 75.4 kg (166 lb 3.2 oz) Patient: met treatment parameters La Chung tolerated injection well documented in this encounter Plan of Treatment Not on file documented as of this encounter Visit Diagnoses Diagnosis Neuro-endocrine carcinoma (HCC)- Primary Other malignant neoplasm of unspecified site Neuroendocrine carcinoma (HCC) Other malignant neoplasm of unspecified site 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) Dehydration Hypophosphatemia Disorders of phosphorus metabolism documented in this encounter Administered Medications Inactive Administered Medications - up to 3 most recent administrations Medication Order MAR Action Action Date Dose Rate Site denosumab (XGEVA) subcutaneous syringe 120 mg 120 mg, subcutaneous, Once, On Sat10/29/23 at 1230, For 1 dose, Calcium level should be greater than 8 mg/dl Administer injection in upper arm, abdomen or upper thigh Refrigerate. Allow to stand 15 to 30 mins prior to useIndications:Maligna nt neoplasm metastatic to bone (CMS/HCC) (HCC),Neuro-endocrine carcinoma (HCC) Given 10/29/2023 1:53 PM CDT 120 mg Left Lower Abdomen octreotide LAR (SandoSTATIN LAR) extended release intramuscular injection 30 mg 30 mg, intramuscular, Once, On Sat10/29/23 at 1230, For 1 dose, Refrigerate. For IM intragluteal administration only- alternate gluteal sites. Shake.Indications:Neur oendocrine carcinoma (HCC),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) Given 10/29/2023 1:59 PM CDT 30 mg Left Ventrogluteal ondansetron (ZOFRAN) injection 8 mg 8 mg, intravenous, Administer over 2 Minutes, Once as needed, nausea, vomiting, Starting on Sat10/29/23 at 1336, For 1 doseIndications:Hypoph osphatemia Given 10/29/2023 1:40 PM CDT 8 mg sodium chloride 0.9% bolus 1,000 mL 1,000 mL, intravenous, at 500 mL/hr, Administer over 2 Hours, Once, On Sat10/29/23 at 1230, For 1 doseIndications:Neuroe ndocrine carcinoma (HCC),Dehydration New Bag 10/29/2023 11:54 AM CDT 1,000 mL 500 mL/hr documented in this encounter Orders Nursing Count Last Ordered Date First Orde red Date ONCBCN NURSING COMMUNICATION [id number] 1 0 10/29/2023 PHYSICIAN COMMUNICATION ORDER 1 10/29/2023 Appointment Requests Count Last Ordered Date Fi rst Ordered Date ONCBCN INFUSION APPT REQUEST 1 10/29/2023 documented in this encounter Care Teams Adhesive Bandage Making Operator Relationship Specialty Start Date End Date Julio César Briseno MD PCP - General 10/01/16 Eren Cr MD Referring Physician Medical Oncology 11/25/18 Yohana Bowen MD Radiation Oncologist Radiation Oncology 11/25/18 Alejo Mi MD [address] [address] Referring Physician Nephrology 03/07/23 documented as of this encounter
--- OUTSIDE RECORDS SUMMARY | 2024-06-25 22:07 | XMS_ITS | Encounter Summary ---
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 Gender Identity Not on file Sexual Orientation [...] by mouth nightly 0.9 % sodium chloride ([facility] sodium chloride 0.9%) injectionIndicati ons:line care Infuse 10 mL into a venous catheter once a week On saturday 4 0.9 % sodium chloride (sodium chloride 0.9%) 0.9% infusion 05/22/2023 4 ascorbic acid, vitamin C, 500 mg capsuleIndication s:supplement Take 1 tablet by mouth blood donor recruiter before breakfast 07/04/2016 4 clotrimazole-beta methasone (LOTRISONE) cream Apply 1 Application topically daily as needed (rash) 4 coenzyme M43-bnaohib E 100-5 mg-unit capsuleIndication s:supplement Take 1 tablet by mouth blood donor recruiter before breakfast 4 diphenoxylate-atr opine (LOMOTIL) 2.5-0.025 [...] week Fluids every -Heparin to flush 4 [facility] cabozantinib/plac abdulkadir (/[id number] [id number]) 20 mg tabletIndications :cancer study Take 1 tablet (20 mg total) by mouth nightly Take on an empty stomach (no food for 2 hours before and 1 hour after each dose).?? Avoid Gillis's Wort, grapefruit products and Fountain oranges while on treatment. placed on hold [...] Priority Date/Time Associated Diagnosis Comments EGFR STAT 10/29/2023 10:33 AM CDT Neuro-endocrine carcinoma (HCC) DIFFERENTIAL AUTO STAT 10/29/2023 10: 33 AM CDT Neuro-endocrine carcinoma (HCC) CHROMOGRANIN A Routine 10/29/2023 10:33 AM CDT 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) CBC WITH AUTO DIFFERENTIAL STAT 10/29/2023 10:33 AM CDT Neuro-endocrine carcinoma (HCC) VITAMIN D 25 HYDROXY Routine 10/29/2023 10:33 AM CDT 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) PHOSPHORUS Routine 10/29/2023 10:33 AM CDT 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) MAGNESIUM STAT 10/29/2023 10:33 AM CDT Neuro-endocrine carcinoma (HCC) LIPID PANEL Routine 10/29/2023 10:33 AM CDT 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) COMPREHENSIVE METABOLIC PANEL STAT 10/29/2023 10:33 AM CDT Neuro-endocrine carcinoma (HCC) PROTEIN / CREATININE RATIO, URINE, RANDOM STAT 10/29/2023 10:30 AM CDT Neuro-endocrine carcinoma (HCC) documented in this encounter Results * (ABNORMAL) eGFR (10/29/2023 10:33 AM CDT) eGFR 52(L) >=60 mL/min/1. 73 m2 Comment: Interpretive Data [...] interpretive data was last reviewed 2021. Blood 10/29/2023 10:3 3 AM CDT 10/29/2023 10:35 AM CDT us Eren Cr MD LAB BLOOD ORDERABLES Final Re sult [facility] One [facility] [place] [address] * (ABNORMAL) Differential, auto (10/29/2023 10:33 AM CDT) Pathologist [facility] Neutrophil abs 2.0 1.5 - 6.5 K/cumm Comment:Testing performed by : [facility], [address] [address] Imm gran abs 0.0 0.0 - 0.1 K/cumm [facility] Lymphocyte abs 0.3(L) 0.8 - 3.3 K/cumm [facility] Monocyte abs 0.5 0.2 - 0.8 K/cumm [facility] Eosinophil abs 0.2 0.0 - 0.5 K/cumm [facility] Basophil abs 0.0 0.0 - 0.1 K/cumm [facility] Neutrophil pct 65.3 % [facility] Comment: Consistent with previous result Interpretive Data Percent cell count reference ranges are not reported, since discordance with absolute values may lead to misinterpretation of CBC data. Current Interpretive Data was last revised on 2017. Imm gran pct 0.3 % [facility] Comment: Interpretive Data Percent cell count reference ranges are not reported, since discordance with absolute values may lead to misinterpretation of CBC data. Current Interpretive Data was last revised on 2017. Lymphocyte pct 11.1 % [facility] Comment: Interpretive Data Percent cell count reference ranges are not reported, since discordance with absolute values may lead to misinterpretation of CBC data. Current Interpretive Data was last revised on 2017. Monocyte pct 17.4 % [facility] Comment: Interpretive Data Percent cell count reference ranges are not reported, since discordance with absolute values may lead to misinterpretation of CBC data. Current Interpretive Data was last revised on 2017. Eosinophil pct 5.2 % [facility] Comment: Interpretive Data Percent cell count reference ranges are not reported, since discordance with absolute values may lead to misinterpretation of CBC data. Current Interpretive Data was last revised on 2017. Basophil pct 0.7 % [facility] Comment: Interpretive Data Percent cell count reference ranges are not reported, since discordance with absolute values may lead to misinterpretation of CBC data. Current Interpretive Data was last revised on 2017. Blood 10/29/2023 10:3 3 AM CDT 10/29/2023 10:35 AM CDT us Eren Cr MD LAB BLOOD ORDERABLES Final Re sult [facility] One [facility] [place] [address] * (ABNORMAL) CBC with auto differential (10/29/2023 10:33 AM CDT) WBC 3.1(L) 3.8 - 9.9 K/cumm Comment:Testing performed by : [facility], [address] [place] [address] Hgb 10.9(L) 11.9 - 15.5 g/dL [facility] Comment:Testing performed by : [facility], [address] [place] [address] Hct 33.3(L) 35.6 - 45.5 % [facility] Comment:Testing performed by : [facility], [address] [place] [address] Plt 94(L) 150 - 400 K/cumm [facility] Comment:Testing performed by : [facility], [address] [place] [address] MPV 10.4 9.1 - 12.3 fL [facility] RBC 3.46(L) 3.90 - 5.20 M/cumm [facility] MCV 96.2 81.3 - 96.4 fL [facility] MCH 31.5 27.1 - 33.3 pg [facility] MCHC 32.7 32.3 - 35.7 g/dL [facility] RDW CV 14.7 11.1 - 14.9 % [facility] RDW SD 51.2(H) 35.7 - 48.1 fL [facility] NRBC abs 0.00 0.00 - 0.01 K/cumm [facility] Blood 10/29/2023 10:3 3 AM CDT 10/29/2023 10:35 AM CDT Eren Cr MD LAB BLOOD ORDERABLES Final Re sult [facility] One [facility] [place] [address] * Magnesium (10/29/2023 10:33 AM CDT) Magnesium 1.9 1.4 - 2.5 mg/dL Comment:Testing performed by : [facility], [address] [place] [address] Blood 10/29/2023 10:3 3 AM CDT 10/29/2023 10:35 AM CDT us Eren Cr MD LAB BLOOD ORDERABLES Final Re sult [facility] One [facility] [place] [address] * (ABNORMAL) Comprehensive metabolic panel (10/29/2023 10:33 AM CDT) Sodium 139 135 - 145 mmol/L Comment:Testing performed by : [facility], [address] [place] [address] Potassium, pl 4.2 3.3 - 4.9 mmol/L [facility] Chloride 109 97 - 110 mmol/L [facility] CO2 25 22 - 32 mmol/L [facility] Anion gap 5 2 - 15 mmol/L [facility] BUN 15 6 - 25 mg/dL [facility] Creatinine 1.11(H) 0.60 - 1.10 mg/dL [facility] Glucose 91 70 - 199 mg/dL [facility] [...] 2022. Calcium 10.1 8.5 - 10.3 mg/dL [facility] Bilirubin, total 0.5 0.1 - 1.2 mg/dL [facility] Protein, pl 6.2(L) 6.5 - 8.5 g/dL [facility] Albumin 3.9 3.5 - 5.0 g/dL [facility] Alk phos 66 40 - 130 Units/L [facility] ALT 19 7 - 45 Units/L [facility] AST 27 10 - 45 Units/L [facility] Blood 10/29/2023 10:3 3 AM CDT 10/29/2023 10:35 AM CDT us Eren Cr MD LAB BLOOD ORDERABLES Final Re sult [facility] One [facility] [place] [address] * Lipid panel (10/29/2023 10:33 AM CDT) Cholesterol 121 30 - 199 mg/dL Comment: [...] on 2018. Triglycerides 115 <=149 mg/dL [facility] Comment: Interpretive Data [...] revised on 2018. HDL 50 >=40 mg/dL [facility] Comment: Interpretive Data Ages < [...] on 2018. LDL, calculated 48 <=129 mg/dL [facility] Comment: Interpretive Data Ages < [...] revised on 2018. Non-HDL Cholesterol 71 mg/dL [facility] Comment: Interpretive Data Ages < or [...] last revised on 2018. Chol/HDL ratio 2 [facility] Blood 10/29/2023 10:3 3 AM CDT 10/29/2023 11:49 AM CDT Eren Cr MD LAB BLOOD ORDERABLES Final Re sult Performing Organization Address [facility] Co de Phone Number [facility] Department [place] [address] * Phosphorus (10/29/2023 10:33 AM CDT) Pathologist [facility] Phosphorus, pl 2.3 2.3 - 4.5 mg/dL Comment:Testing performed by : [facility], [address] [place] [address] Blood 10/29/2023 10:3 3 AM CDT 10/29/2023 10:35 AM CDT Eren Cr MD LAB BLOOD ORDERABLES Final Re sult Performing Organization Address [facility] Co de Phone Number [facility] Department [place] [address] * (ABNORMAL) Vitamin D 25 hydroxy (10/29/2023 10:33 AM CDT) Vitamin D 25-OH 21(L) 30 - 80 ng/mL Blood 10/29/2023 10:3 3 AM CDT 10/29/2023 11:49 AM CDT Eren Cr MD LAB BLOOD ORDERABLES Final Re sult Performing Organization Address [facility] Co de Phone Number [facility] I[facility] Department [place] [address] * (ABNORMAL) Chromogranin A (10/29/2023 10:33 AM CDT) Chromogranin A 667(H) <93 ng/mL [place] [facility] Comment: Impaired renal or hepatic function or treatment with proton pump inhibitors may result in artifactual elevations of Chromogranin A. ADDITIONAL INFORMATION The testing method is a homogeneous time-resolved immunofluorescent assay manufactured by [employer] and performed on the [employer] Compact Plus. ? Values obtained with different [...] examination and other findings. Test Performed by: [place] [address] Institutional Aide: Immanuel Novak M.D. Ph.D.; CLIA# [id number] Blood 10/29/2023 10:3 3 AM CDT 10/29/2023 12:05 PM CDT Eren Cr MD LAB BLOOD ORDERABLES Final Re sult Performing Organization Address City/[facility] Co de Phone Number [facility]ON Ibrahim [facility] [place] [address] [place] ref [facility] * Protein / creatinine ratio, urine, random (10/29/2023 10:30 AM CDT) Protein, ur, quant 26.2 mg/dL Comment: Interpretive Data No reference range established. Current interpretive data was last revised 2018. Creatinine Ur 167.8 mg/dL [facility] Comment: Interpretive Data No reference range established. Current interpretive data was last revised 2018. Protein/creatinin e ratio 156.1 0.0 - 180.0 mg/g CR [facility] Urine 10/29/2023 10:3 0 AM CDT 10/29/2023 11:49 AM CDT us Eren Cr MD LAB URINE ORDERABLES Final Re sult [facility] One [facility] [place] [address] documented in this encounter Visit Diagnoses Diagnosis Neuroendocrine carcinoma (HCC) Other malignant neoplasm of unspecified site 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) Neuro-endocrine carcinoma (HCC) Other malignant neoplasm of unspecified site documented in this encounter Care Teams Director Data Management Relationship Specialty Start Date End Date Julio César Briseno MD PCP - General 10/01/16 Eren Cr MD Referring Physician Medical Oncology 11/25/18 Yohana Bowen MD Radiation Oncologist Radiation Oncology 11/25/18 Alejo Mi MD [address] [place] [address] Referring Physician Nephrology 03/07/23 documented as of this encounter
--- OUTSIDE RECORDS SUMMARY | 2024-06-25 22:07 | XMS_ITS | Encounter Summary ---
Author Organization [facility] Address [address] [place] [address] Phone Care Team Providers Care Airline Captain Name Role Phone Julio César Briseno MD Primary Care Provider [phone] Eren Cr MD Unavailable [phone] Yohana Bowen MD Unavailable [place] MD Unavailable [phone] Reason for Visit * Episode Based Medications (Routine) - Closed Specialty Diagnoses / Procedures Referred By Contac t Referred To Contact Diagnoses Neuro-endocrine carcinoma (HCC) Procedures study [id number] phase III cabozantinib Eren Cr MD [address] [place] [address] Phone: tel: fax: [facility] [address] [facility] 7th [place] [address] Phone: tel: Referral ID Status Reason Start Date Expiration Date Visits Re quested Visits Authorized [id number] Closed 06/21/2021 06/26/2024 1 99 Encounter Details Date Type Department Care Team (Latest Contact Info) Description 11/26/2023 11:00 AM CDT Clinical Support 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
--- OUTSIDE RECORDS SUMMARY | 2024-06-25 22:07 | XMS_ITS | Encounter Summary ---
Author Organization [facility] Address [address] [place] [address] Phone Care Team Providers Care Science Education Professor Name Role Phone Julio Céasr Briseno MD Primary Care Provider Eren Cr MD Unavailable Yohana Bowen MD Unavailable Alejo Mi MD Unavailable [phone] Encounter Details Date Type Department Care Team (Latest Contact Info) Description 11/13/2023 1:00 PM CDT Clinical Support [facility] Oncology [address] [facility] Advanced Medicine 7th [place] [address] [place] [address] Neuroendocrine carcinoma (HCC); Malignant neoplasm metastatic to [...] on file 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
--- OUTSIDE RECORDS SUMMARY | 2024-06-25 22:07 | XMS_ITS | Encounter Summary ---
Author Organization [facility] Address [address] [place] [address] Phone Care Team Providers Care Laundry Assistant Name Role Phone Julio César Briseno MD Primary Care Provider [phone] Eren Cr MD Unavailable [phone] Yohana Bowen MD Unavailable Alejo Mi MD Unavailable [phone] Encounter Details Date Type Department Care Team (Late st Contact Info) Description 11/26/2023 Orders Only [facility] Oncology [address] [place] [address] Eren Cr MD [address] [place], [place] [id number] Nausea (Primary Dx) Social History Tobacco Use Types [...] on file 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 Gender Identity Not on file Sexual Orientation Straight 02/19/2021 9: 29 AM CDT Occupation Industry Job Start Date Job End Date retired Not on file Not on file Not on file documented as of this encounter Plan of Treatment Not on file documented as of this encounter Visit Diagnoses Diagnosis Nausea- Primary Nausea alone documented in this encounter Orders Appointment Requests Count Last Ordered Date Fi rst Ordered Date INFUSION APPT REQUEST 90 MIN 1 11/26/2023 documented in this encounter Care Teams Laundry Assistant Relationship Specialty Start Date End Date Julio César Briseno MD PCP - General 10/01/16 Eren Cr MD Referring Physician Medical Oncology 11/25/18 Yohana Bowen MD Radiation Oncologist Radiation Oncology 11/25/18 Alejo Mi MD [address] [address] Referring Physician Nephrology 03/07/23 documented as of this encounter
--- OUTSIDE RECORDS SUMMARY | 2024-06-25 22:07 | XMS_ITS | Encounter Summary ---
Author Organization [facility] Address [address] [place] [address] Phone Care Team Providers Care Salesperson [employer] Name Role Phone Julio César Briseno MD Primary Care Provider [phone] Eren Cr MD Unavailable [phone] Yohana Bowen MD Unavailable Alejo Mi MD Unavailable [phone] Encounter Details Date Type Department Care Team (Late st Contact Info) Description 11/26/2023 Orders Only [facility] Oncology [address] [place] [address] Eren Cr MD [address] [place] [address] Vitamin D deficiency (Primary Dx) Social History Tobacco Use Types [...] on file 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 Gender Identity Not on file [...] once a week 12 capsule 2 11/26/2023 documented in this encounter Plan of Treatment Not on file documented as of this encounter Visit Diagnoses Diagnosis Vitamin D deficiency- Primary documented in this encounter Discontinued Medications Medication Sig Discontinue Reason Start Date End Da te ergocalciferol (VITAMIN D) 50,000 unit capsule Take 1 capsule (50,000 Units total) by mouth once a week Reorder 06/11/2023 11/26/2023 documented as of this encounter Care Teams Salesperson [employer] Relationship Specialty Start Date End Date Julio César Briseno MD PCP - General 10/01/16 Eren Cr MD Referring Physician Medical Oncology 11/25/18 Yohana Bowen MD Radiation Oncologist Radiation Oncology 11/25/18 Alejo Mi MD [address] [place] [address] Referring Physician Nephrology 03/07/23 documented as of this encounter
--- OUTSIDE RECORDS SUMMARY | 2024-06-25 22:07 | XMS_ITS | Encounter Summary ---
Author Organization [facility] Address [address] [place] [address] Phone Care Team Providers Care Contracting Officer Name Role Phone Julio César Briseno MD Primary Care Provider [phone] Eren Cr MD Unavailable [phone] Yohana Bowen MD Unavailable [place]jo Ramos MD Unavailable [phone] Reason for Visit * Episode Based Medications (Routine) - Closed Specialty Diagnoses / Procedures Referred By Contac t Referred To Contact Diagnoses Neuro-endocrine carcinoma (HCC) Procedures study [id number] phase III cabozantinib Eren Cr MD [address] [facility] [address] [place] [address] Phone: tel: fax: [facility] [address] [facility] Advanced Medicine 7th [place] [address] Phone: tel: Referral ID Status Reason Start Date Expiration Date Visits Re quested Visits Authorized [id number] Closed 06/21/2021 06/26/2024 1 99 Encounter Details Date Type Department Care Team (Late st Contact Info) Description 10/29/2023 10:00 AM CDT Office Visit [facility] Oncology [address] [place] [address] Eren Cr MD [address] [facility] [address] [place] [address] Neuroendocrine carcinoma (HCC) (Primary Dx); Malignant neoplasm [...] on file 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 Gender Identity Not on file Sexual Orientation Straight 02/19/2021 9: 29 AM CDT Occupation Industry Job Start Date Job End Date retired Not on file Not on file Not on file documented as of this encounter Last Filed Vital Signs Vital Sign Reading Time Taken Comments Blood Pressure 144/78 10/29/2023 10:51 AM CDT Pulse 70 10/29/2023 10:51 AM CDT Temperature 36.6 ??C (97.8 ??F) 10/29/2023 10:51 AM C DT Respiratory Rate 16 10/29/2023 10:51 AM CDT Oxygen Saturation 97% 10/29/2023 10:51 AM CDT Inhaled Oxygen Concentration - - Weight 75.4 kg (166 lb 3.2 oz) 10/29/2023 10:51 AM CDT Height - - Body Mass Index 29.44 09/06/2023 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 MEDICAL ONCOLOGY OUTPATIENT ROV NOTE La Chung : 1950 DATE OF VISIT: 10/29/23 Oncology History Overview Note DIAGNOSIS: well differentiated [...] also underwent right colectomy in [facility] [place] by Dr. Greyson Reeves. Biopsy [...] tumor INTERVAL HISTORY: La Chung is a 72 y.o. 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 She was last seen in clinic 09/26/2023 and received Cycle 28 cabozantinib (open label) on CABINET study. She was scheduled to see us on 10/24/2023 for cycle 29 however she had to cancel due to rectal pain and drainage. Today, she is here with her sister and notes: - improved rectal pain and drainage. She notes these episodes occur ~1x/month where she develops rectal pressure with pain and had been recommended to utilize an enema for clearance. She notes the enema provided minimal relief. - Otherwise, has had no fevers, chills (cold all the time), SOB, chest pain, cough, abdominal pain - Chronic diarrhea, mostly liquid; at its firmest possibly applesauce consistency. She states she takes imodium 1 tablet three times a day. No blood. - She has been eating ok. Drinks ~24-32oz of liquids a day. Current Outpatient Medications Medication Instructions 0.9 % sodium chloride ([facility] sodium chloride 0.9%) injection 10 mL, intravenous, Weekly, On saturday 0.9 % sodium chloride (sodium chloride 0.9%) 0.9% infusion amLODIPine (NORVASC) 5 mg tablet ascorbic acid, vitamin C, 500 mg capsule 1 tablet, oral, Daily (early AM) cholecalciferol (VITAMIN D-3) 1,000 Units, oral, Daily clotrimazole-betamethasone (LOTRISONE) cream Apply 1 Application topically daily as needed (rash) coenzyme [id number] 100-5 mg-unit capsule 1 tablet, oral, [...] Weekly, Fluids every - Heparin to flush [facility] cabozantinib/placebo (/[id number]) 20 mg, oral, Nightly, Take on an empty stomach (no food for 2 hours before and 1 hour after each dose). Avoid Jas's Wort, grapefruit products and [place] oranges while on treatment. placed on hold [...] improved Objective ECOG PS: 1 VITALS: BP 144/78 (BP Location: Left arm) Pulse 70 Temp 36.6 ??C (97.8 ??F) (Oral) Resp 16 Wt 75.4 kg (166 lb 3.2 oz) SpO2 97% BMI 29.44 kg/m?? Physical Exam Vitals reviewed. Exam conducted with a brim cutter present. Constitutional: General: She is not in [...] Lab History Latest Ref Rng & Units 07/25/2023 09:47 08/27/2023 09:38 09/26/2023 13:03 10/29/2023 10:33 Labs - Hematology WBC 3.8 - 9.9 K/cumm 3.1 2.6 3.6 3.1 Total Hb, POC 11.9 - 15.5 g/dL 11.8 10.7 11.8 10.9 Hct 35.6 - 45.5 % 35.5 33.4 35.8 33.3 Plt 150 - 400 K/cumm 84 76 90 94 Neutrophil abs 1.5 - 6.5 K/cumm 2.0 1.7 2.4 2.0 Lymphocytes, abs 0.8 - 3.3 K/cumm 0.4 0.4 0.5 0.3 Chem/LFT Lab History Latest Ref Rng & Units 08/27/2023 09:38 09/04/2023 10:29 09/26/2023 13:03 10/29/2023 10:33 Labs-Chem/LFT Sodium 135 - 145 mmol/L 140 141 138 139 Creatinine 0.60 - 1.10 mg/dL 1.07 1.03 1.24 1.11 Bilirubin, total 0.1 - 1.2 mg/dL 0.5 0.7 0.5 AST 10 - 45 Units/L 31 39 27 ALT 7 - 45 Units/L 22 20 19 Alk phos 40 - 130 Units/L 63 69 66 CrCl- Actual Body Weight (Cockcroft-Gault) 56.8 58.8 47.8 52.9 Tumor Marker History Latest Ref Rng & Units 06/27/2023 10:04 07/25/2023 09:47 08/27/2023 09:38 09/26/2023 13:03 Tumor Markers Chromogranin A <93 ng/mL 1996 1970 2074 2169 RADIOGRAPHIC/DIAGNOSTIC REVIEW: CT chest abdomen pelvis with contrast 08/16/2023 [...] AND PLAN: Ms. La Chung is a 72 y.o. 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 1. Metastatic neuroendocrine tumor with metastases - She continues on Octreotide LAR 30 mg; due for injection today. - She also continues on cabozantinib per CABINET trial with dose 20mg daily. She missed three days of her treatment; child study team director aware. - We reviewed her labs notable for Cr 1.11, normal LFTs and electrolytes, WBC 3.1, ANC 2, Hgb 10.9,PLT 94. CGA pending, last 2169 (from 2074). - We will plan to proceed with cycle 29 day 1 of CABINET study, will continue on 20 mg dosing of cabozantinib. Patient is agreeable. - She will return for follow up in 4 weeks per protocol. She is scheduled for scans 11/12 per study. 2. Bone metastases - No suspicious lesions on last CT. - On xgeva, last recived 09/26/2023 3. Diarrhea - Has chronic diarrhea since diagnosis. 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 - She has been compensating well with her GI losses with weekly IVF. Today, she is asking if she could defer her weekly IVF. She currently notes she takes 1 Imodium tablet three times a day; her ostomy output is still pretty loose today. We discussed trialing increase in her Imodium (2 tablets TID)to help thicken up her stool and hopefully decrease her GI losses and so that she is able to receive less IVF. We also discussed importance of hydration in light of her chronic renal insufficiency. She voices understanding; she will try increasing her imodium and PO intake. At best, it sounds like her her stools firm up to apple sauce consistency. We will try to aim for a slightly thicker consistency; I have asked to decrease Imodium if her stools become too firm. We will plan to skip next week's IVF as she will be out of town. We will have her return on 11/12 (day of CT) to [facility] for labs +/- IVF. If she is able to control her diarrhea and stay well hydrated, we discussed possibly transitioning to monthly IVF to coincide with her ROV if we are able. 4. Hypothyroidism with TSH elevated - Managed per endocrinology. 5. Vitamin D insufficiency/Deficiency - Vit D checked 06/11 16. Pt on ergocalciferol 39294 units weekly. -- she states she is still on this. - followed by nephrology 6. Renal function - Creatinine 1.11 - follows with Nephrology 7. Right TM [...] her PCP. - G1 HTN today. BP 144/78 My total encounter time on 10/29/2023 was 40 minutes which was spent in [...] assessment: 07/12/22 [facility]: No change in treatment plan Cosigned by Eren Cr MD at 10/30/2023 12:04 PM CDT documented in this encounter Plan of Treatment Not on file documented as of this encounter Results * Magnesium (11/26/2023 11:20 AM CDT) Magnesium 1.7 1.4 - 2.5 mg/dL Comment:Testing performed by : [facility], [address] [place] [address] Blood 11/26/2023 11:2 0 AM CDT 11/26/2023 11:21 AM CDT Eren Cr MD LAB BLOOD ORDERABLES Final Re sult [facility] [place] [address] * (ABNORMAL) Comprehensive metabolic panel (11/26/2023 11:20 AM CDT) Sodium 137 135 - 145 mmol/L Comment:Testing performed by : [facility], [address] [place] [address] Potassium, pl 4.3 3.3 - 4.9 mmol/L [facility] Chloride 105 97 - 110 mmol/L [facility] CO2 26 22 - 32 mmol/L [facility] Anion gap 6 2 - 15 mmol/L [facility] BUN 12 6 - 25 mg/dL [facility] Creatinine 1.21(H) 0.60 - 1.10 mg/dL [facility] Glucose 124 70 - 199 mg/dL [facility] Comment: Interpretive Data Fasting glucose >/= [...] 2022. Calcium 10.1 8.5 - 10.3 mg/dL [facility] Bilirubin, total 0.6 0.1 - 1.2 mg/dL [facility] Protein, pl 6.3(L) 6.5 - 8.5 g/dL [facility] Albumin 4.2 3.5 - 5.0 g/dL [facility] Alk phos 67 40 - 130 Units/L [facility] ALT 20 7 - 45 Units/L [facility] AST 33 10 - 45 Units/L [facility] Blood 11/26/2023 11:2 0 AM CDT 11/26/2023 11:21 AM CDT Eren Cr MD LAB BLOOD ORDERABLES Final Re sult [facility] [place] [address] * (ABNORMAL) CBC with auto differential (11/26/2023 11:20 AM CDT) Pathologist [facility] WBC 5.0 3.8 - 9.9 K/cumm Comment:Testing performed by : [address] [address] Hgb 10.7(L) 11.9 - 15.5 g/dL [facility] Comment:Testing performed by : [address] [address] Hct 33.5(L) 35.6 - 45.5 % [facility] Comment:Testing performed by : [address] [address] Plt 101(L) 150 - 400 K/cumm [facility] Comment:Testing performed by : [address] [address] MPV 10.7 9.1 - 12.3 fL [facility] RBC 3.46(L) 3.90 - 5.20 M/cumm [facility] MCV 96.8(H) 81.3 - 96.4 fL [facility] MCH 30.9 27.1 - 33.3 pg [facility] MCHC 31.9(L) 32.3 - 35.7 g/dL [facility] RDW CV 15.2(H) 11.1 - 14.9 % [facility] RDW SD 53.6(H) 35.7 - 48.1 fL [facility] NRBC abs 0.00 0.00 - 0.01 K/cumm [facility] Blood 11/26/2023 11:2 0 AM CDT 11/26/2023 11:21 AM CDT us Eren Cr MD LAB BLOOD ORDERABLES Final Re sult [facility] [place] [address] * (ABNORMAL) Chromogranin A (11/26/2023 11:20 AM CDT) Chromogranin A 2279(H) <93 ng/mL [facility] Comment: Impaired renal or hepatic function or treatment with proton pump inhibitors may result in artifactual elevations of Chromogranin A. ADDITIONAL INFORMATION The testing method is a homogeneous time-resolved immunofluorescent assay manufactured by [employer] and performed on the [employer] Kryptor Compact Plus. ? Values obtained with [...] examination and other findings. Test Performed by: [address] [address] [employer]: Immanuel Novak M.D. Ph.D.; CLIA# [id number] Blood 11/26/2023 11:2 0 AM CDT 11/26/2023 2:16 PM CDT Eren Cr MD LAB BLOOD ORDERABLES Final Re sult Performing Organization Address [facility] Co de Phone Number [facility] [place] [address] [facility] * (ABNORMAL) Vitamin D 25 hydroxy (11/26/2023 11:20 AM CDT) Vitamin D 25-OH 19(L) 30 - 80 ng/mL Blood 11/26/2023 11:2 0 AM CDT 11/26/2023 1:03 PM CDT Eren Cr MD LAB BLOOD ORDERABLES Final Re sult Performing Organization Address [facility] de Phone Number [facility] [place] [address] * Phosphorus (11/26/2023 11:20 AM CDT) Phosphorus, pl 2.8 2.3 - 4.5 mg/dL Comment:Testing performed by : [facility], [address] [place] [address] Blood 11/26/2023 11:2 0 AM CDT 11/26/2023 11:21 AM CDT Eren Cr MD LAB BLOOD ORDERABLES Final Re sult Performing Organization Address [facility] [place] [address] * Lipid panel (11/26/2023 11:20 AM CDT) [...] on 2018. Triglycerides 111 <=149 mg/dL [facility] Comment: Interpretive Data Ages < or = [...] revised on 2018. HDL 55 >=40 mg/dL [facility] Comment: Interpretive Data Ages < or = [...] 2018. LDL, calculated 55 <=129 mg/dL [facility] Comment: Interpretive Data Ages < or = [...] revised on 2018. Non-HDL Cholesterol 77 mg/dL [facility] Comment: Interpretive Data Ages < or = [...] last revised on 2018. Chol/HDL ratio 2 [facility] Blood 11/26/2023 11:2 0 AM CDT 11/26/2023 1:03 PM CDT us Eren Cr MD LAB BLOOD ORDERABLES Final Re sult [facility] [place] [address] * (ABNORMAL) Comprehensive metabolic panel (11/13/2023 11:25 AM CDT) Sodium 139 135 - 145 mmol/L Comment:Testing performed by : [facility], [address] [place] [phone] Potassium, pl 4.2 3.3 - 4.9 mmol/L [facility] Comment:Testing performed by : [facility], [address] [place] [phone] Chloride 109 97 - 110 mmol/L [facility] Comment:Testing performed by : [facility], [address] [place] [phone] CO2 25 22 - 32 mmol/L [facility] Comment:Testing performed by : [facility], [address] [place] [phone] Anion gap 5 2 - 15 mmol/L [facility] Comment:Testing performed by : [facility], [address] [place] [phone] BUN 13 6 - 25 mg/dL [facility] Comment:Testing performed by : [facility], [address] [place] [phone] Creatinine 1.03 0.60 - 1.10 mg/dL [facility] Comment:Testing performed by : [facility], [address] [place] [phone] Glucose 73 70 - 199 mg/dL [facility] Comment: Interpretive Data Fasting glucose >/= 126 [...] was last revised 2022. Testing performed by: [facility], [address] [place] [phone] Calcium 9.6 8.5 - 10.3 mg/dL [facility] Comment:Testing performed by : [facility], [address] [place] [phone] Bilirubin, total 0.4 0.1 - 1.2 mg/dL [facility] Comment:Testing performed by : [facility], [address] [place] [phone] Protein, pl 6.0(L) 6.5 - 8.5 g/dL [facility] Comment:Testing performed by : [facility], [address] [place] [phone] Albumin 3.7 3.5 - 5.0 g/dL [facility] Comment:Testing performed by : [facility], [address] [place] [phone] Alk phos 73 40 - 130 Units/L [facility] Comment:Testing performed by : [facility], [address] [place] [phone] ALT 16 7 - 45 Units/L [facility] Comment:Testing performed by : [facility], [address] [place] [phone] AST 25 10 - 45 Units/L [facility] Comment:Testing performed by : [facility], [address] [place] [phone] Blood 11/13/2023 11:2 5 AM CDT 11/13/2023 11:29 AM CDT us Eren Cr MD LAB BLOOD ORDERABLES Final Re sult [facility] [place] [address] * (ABNORMAL) CBC with auto differential (11/13/2023 11:25 AM CDT) WBC 3.5(L) 3.8 - 9.8 K/cumm Comment:Testing performed by : [facility], [address] [place] [address] Hgb 11.0(L) 12.1 - 15.1 g/dL [facility] Comment:Testing performed by : [facility], [address] [place] [address] Hct 33.1(L) 36.1 - 44.3 % [facility] Comment:Testing performed by : [facility], [address] [place] [address] Plt 102(L) 140 - 440 K/cumm [facility] Comment:Testing performed by : [facility], [address] [place] [address] MPV 7.7 6.8 - 10.4 fL [facility] Comment:Testing performed by : [place] [address] RBC 3.41(L) 3.90 - 5.00 M/cumm [facility] Comment:Testing performed by : [place] [address] MCV 97.0 80.0 - 97.6 fL [facility] Comment:Testing performed by : [place] [address] MCH 32.3 26.7 - 33.7 pg [facility] Comment:Testing performed by : [place] [address] MCHC 33.3 32.7 - 35.5 g/dL [facility] Comment:Testing performed by : [place] [address] RDW CV 15.6(H) 11.8 - 14.6 % [facility] Comment:Testing performed by : [place] [address] NRBC abs 0.00 0.00 - 0.01 K/cumm [facility] Comment:Testing performed by : [place] [address] Blood 11/13/2023 11:2 5 AM CDT 11/13/2023 11:29 AM CDT Eren Cr MD LAB BLOOD ORDERABLES Final Re sult [facility] [place] [address] documented in this encounter Visit Diagnoses Diagnosis Neuroendocrine carcinoma (HCC)- Primary Other malignant neoplasm of unspecified site 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) Other malignant neoplasm of unspecified site documented in this encounter Orders Appointment Requests Count Last Ordered Date Fi rst Ordered Date ONCBCN CLINIC APPOINTMENT REQUEST 2 024 10/29/2023 ONCBCN INJECTION APPOINTMENT REQUEST 1 11/06 ONCBCN LAB APPOINTMENT 2 11/26/202311/12 ONCBCN TAKE HOME STUDY DRUG APPT 1 11/26/19 ONCBCN INFUSION APPT REQUEST 2 10/29/2023 documented in this encounter Care Teams Contracting Officer Relationship Specialty Start Date End Date Julio César Briseno MD PCP - General 10/01/16 Eren Cr MD Referring Physician Medical Oncology 11/25/18 Yohana Bowen MD Radiation Oncologist Radiation Oncology 11/25/18 Alejo Mi MD [address] [place] [address] Referring Physician Nephrology 03/07/23 documented as of this encounter
--- OUTSIDE RECORDS SUMMARY | 2024-06-25 22:07 | XMS_ITS | Encounter Summary ---
Author Organization [facility] Address [address] [place] [address] Phone Care Team Providers Care Hoof Trimmer Name Role Phone Julio César Briseno MD Primary Care Provider [phone] Eren Cr MD Unavailable [phone] Yohana Bowen MD Unavailable AusterlitzAlejo Ramos MD Unavailable [phone] Reason for Visit * Reason Comments Port Draw * Episode Based Medications (Routine) - Closed Specialty Diagnoses / Procedures Referred By Contac t Referred To Contact Diagnoses Neuro-endocrine carcinoma (HCC) Procedures study [id number] phase III cabozantinib Eren Cr MD [address] [facility] [address] [place] [address] Phone: tel: fax: [facility] at [facility] [address] [facility] Medicine 7th [place] [address] Phone: tel: Referral ID Status Reason Start Date Expiration Date Visits Re quested Visits Authorized [id number] Closed 06/21/2021 06/26/2024 1 99 Encounter Details Date Type Department Care Team (Latest Contact Info) Description 12/24/2023 10:15 AM CDT Clinical Support [facility] [address] [place] [address] Neuro-endocrine carcinoma (HCC) Social History Tobacco Use [...] file 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
--- OUTSIDE RECORDS SUMMARY | 2024-06-25 22:07 | XMS_ITS | Encounter Summary ---
Author Organization [facility] Address [address] [place] [address] Phone Care Team Providers Care Windows 7 Deployment Lead Name Role Phone Julio César Briseno MD Primary Care Provider Eren Cr MD Unavailable [phone] Yohana Bowen MD Unavailable Alejo Mi MD Unavailable [phone] Encounter Details Date Type Department Care Team (Late st Contact Info) Description 01/14/2024 2:00 PM CDT Office Visit [facility] Advanced Medicine 5th [place] [address] [place] [address] Alejo Mi MD [address] [place] [address] [address] [place] [address] Acute cystitis with hematuria (Primary Dx); Benign essential hypertension; Stage 3b chronic kidney disease (HCC) Social History Tobacco [...] on file 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 Gender Identity Not on file Sexual Orientation Straight 02/19/2021 9: 29 AM CDT Occupation Industry Job Start Date Job End Date retired Not on file Not on file Not on file documented as of this encounter Last Filed Vital Signs Vital Sign Reading Time Taken Comments Blood Pressure 138/78 01/14/2024 2:09 PM CDT Pulse 65 01/14/2024 2:09 PM CDT Temperature - - Respiratory Rate - - Oxygen Saturation - - Inhaled Oxygen Concentration - - Weight 75.1 kg (165 lb 9.6 oz) 01/14/2024 2:09 P M CDT Height 160 cm (5' 3 ) 01/14/2024 2:09 PM CDT Body Mass Index 29.33 01/14/2024 2:09 PM CDT documented in this encounter Ordered Prescriptions Prescription Sig Dispense Quantity Refills Last Filled Start Date End Date ciprofloxacin (CIPRO) 500 mg tablet Take 1 tablet (500 mg total) by mouth 2 (two) times a day for 7 days 14 tablet 01/14/2024 01/21/2024 documented in this encounter Progress Notes * Alejo Mi MD - 01/14/2024 2:00 PM CDT NEPHROLOGY OFFICE VISIT NAME: LA CHUNG DATE OF : 1950 DATE OF VISIT:01/14/2024 HISTORY REASON FOR CONSULTATION: Evaluation and management of elevated Cr PHYSICIAN REQUESTING CONSULTATION: Julio César Briseno MD and Julio César Briseno MD CHIEF COMPLAINT: Elevated Creatinine HISTORY OF PRESENTING ILLNESS: Ms. La Chung is a 71 y.o. 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 She is being followed by Oncology for management of ileal neuroendocrine tumor and was found to have an elevated Cr at 1.32 (peaked at 1.59). Additionally, her Phosphate was found to be low. Additionally, her PTH was found to be 210. Furthermore, the patient was recently started on a clinical trialwhich could be contributing to her rcent ANNE-MARIE. Overall the patient feels well. Patient denies the use of NSAIDs. Patient denies the use of herbal medications or over the counter supplements. Patient denies any changes in urination no hematuria dysuria pyuria. She did notice a spot of blood after lifting some boxes yesterday unclear the source however she admits that may be related to her cancer her she does have metastasis to the vaginal cuff. She expressed that she will follow up on this with her senior energy market coordinator or oncologist.. Since last seen, she has been great! Her creatinine is holding nicely at 1.3, a hair above normal. She does have symptoms of a UTI, so I will send a urine and empirically start her on ciprofloxacin.She is looking forward to her upcoming mystery bus vacation. PAST MEDICAL HISTORY: Primary neuroendocrine tumor HTN MEDICATIONS: Current Outpatient Medications Medication Sig Dispense Refill amLODIPine (NORVASC) 5 mg tablet clotrimazole-betamethasone (LOTRISONE) cream Apply 1 Application topically daily as needed (rash) denosumab (Xgeva) 120 mg/1.7 mL (70 mg/mL) injection Inject 1.7 mL (120 mg total) under the skin every 28 (twenty-eight) days diphenoxylate-atropine (LOMOTIL) 2.5-0.025 mg per tablet Take 1 tablet by mouth 4 (four) times a day as needed for diarrhea [address] (CYMBALTA) 60 mg capsule 1 capsule (60 mg total) [id number] cabozantinib/placebo (/[id number]) 20 mg tablet Take 1 tablet (20 mg total) byiauth nightly Take on an empty stomach (no food for 2 hours before and 1 hour after each dose). Avoid Winona's Wort, grapefruit products and Sartell oranges while on treatment. placed on hold 09/26/22 for covid levothyroxine (SYNTHROID) 100 mcg tablet Take 1 tablet (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) by mouth automation specialist before breakfast 90 tablet 3 lidocaine-prilocaine (lidocaine-prilocaine) [...] barrier film to manage. 20 each 6 simvastatin (ZOCOR) 20 mg tablet Take 1 tablet (20 mg total) by mouth nightly 0.9 % sodium chloride ([facility] sodium chloride 0.9%) injection Infuse 10 mL into a venous catheter once a week On saturday (Patient not taking: Reported on 01/14/2024) 0.9 % sodium chloride (sodium chloride 0.9%) 0.9% infusion (Patient not taking: Reported on 01/14/2024) ascorbic acid, vitamin C, 500 mg capsule Take 1 tablet by mouth automation specialist before breakfast (Patient not taking: Reported on 12/24/2023) cholecalciferol (VITAMIN D-3) 1,000 unit Take 1 tablet/capsule (1,000 Units total) by mouth daily (Patient taking differently: Take 1 tablet/capsule (1,000 Units total) by mouth every morning) 90 tablet/capsule 3 ciprofloxacin (CIPRO) 500 mg tablet Take 1 tablet (500 mg total) by mouth 2 (two) times a day for 7days 14 tablet 0 coenzyme [id number] 100-5 mg-unit capsule Take 1 tablet by mouth automation specialist before breakfast (Patient not taking: Reported on 12/24/2023) ergocalciferol (VITAMIN D) 50,000 unit capsule Take 1 capsule (50,000 Units total) by mouth once a week for 12 doses (Patient not taking: Reported on 01/14/2024) 12 capsule 2 fluticasone propionate (FLONASE) 50 mcg/actuation nasal spray Administer 2 sprays into each nostrildaily as needed for rhinitis or allergies (Patient not taking: Reported on 12/24/2023) heparin 100 unit/mL solution Infuse 5 mL (500 Units total) into a venous catheter once a week Fluids every -Heparin to flush (Patient not taking: Reported on 12/24/2023) olmesartan-hydrochlorothiazide (BENICAR HCT) 20-12.5 mg per tablet Take 1 tablet by mouth every morning (Patient not taking: Reported on 12/24/2023) prochlorperazine (COMPAZINE) 10 mg tablet Take 1 tablet (10 mg total) by mouth every 6 (six) hours as needed for nausea (Patient taking differently: Take 1 tablet (10 mg total) by mouth every 6 (six)hours as needed for nausea or vomiting) 60 tablet 3 sodium chloride 0.9 % solution Infuse 1,000 mL into a venous catheter once a week Patient to [id number] of Normal Saline via CADD Coreas pump [...] 1,000 mL intravenous Continuous Meagan Amaya MD ALLERGIES: Allergies Allergen Reactions Morphine Blisters Ezetimibe-Simvastatin Muscle pain, Unknown and Other (See comments) Muscle weakness Ramipril Cough SOCIAL HISTORY: The patient reports that she has never smoked. She has never used smokeless tobacco. She reports that she does not use drugs. Patient reports consuming alcoholic drinks monthly or less, with a daily consumption of drinks. Patient denies daily consumption of 6 or more alcoholic drinks at one occasion. FAMILY HISTORY: None REVIEW OF SYSTEMS: As per HPI. All other systems are negative. PHYSICAL EXAMINATION A very pleasant and in no apparent distress BP 138/78 (BP Location: Left arm, Patient Position: Sitting) Pulse 65 Ht 160 cm (5' 3 ) Wt 75.1 kg (165 lb 9.6 oz) BMI 29.33 kg/m?? HENT: MM pink and moist. Oropharynx clear. EYES: sclera anicteric CVS: S1 S2 normal, no murmurs, rub or gallop. No LE edema. LUNGS: clear to auscultation bilaterally ABD: Soft, non-tender, BS normal. No masses SKIN: No rash AREA OPERATIONS MANAGER: Alert Ox3. No focal motor deficits PSYCH: Pleasant, cooperative, appropriate affect. MSK: No joint swelling or tenderness LABORATORY DATA Sodium Date Value Ref Range Status 12/24/2023 140 135 - 145 mmol/L Final Comment: Testing performed by: [facility], [address] [place] [phone] 11/26/2023 137 135 - 145 mmol/L Final Comment: Testing performed by: [facility], [address] [place] [phone] 11/13/2023 139 135 - 145 mmol/L Final Comment: Testing performed by: [facility], [address] [place] [phone] Potassium, pl Date Value Ref Range Status 12/24/2023 4.2 3.3 - 4.9 mmol/L Final 11/26/2023 4.3 3.3 - 4.9 mmol/L Final 11/13/2023 4.2 3.3 - 4.9 mmol/L Final Comment: Testing performed by: [facility], [address] [place] [phone] CO2 Date Value Ref Range Status 12/24/2023 21 (L) 22 - 32 mmol/L Final 11/26/2023 26 22 - 32 mmol/L Final 11/13/2023 25 22 - 32 mmol/L Final Comment: Testing performed by: [facility], [address] [place] [phone] BUN Date Value Ref Range Status 12/24/2023 17 6 - 25 mg/dL Final 11/26/2023 12 6 - 25 mg/dL Final 11/13/2023 13 6 - 25 mg/dL Final Comment: Testing performed by: [facility], [address] [place] [phone] Creatinine Date Value Ref Range Status 12/24/2023 1.32 (H) 0.60 - 1.10 mg/dL Final 11/26/2023 1.21 (H) 0.60 - 1.10 mg/dL Final 11/13/2023 1.03 0.60 - 1.10 mg/dL Final Comment: Testing performed by: [facility], [address] [place] [phone] Albumin Date Value Ref Range Status 12/24/2023 3.9 3.5 - 5.0 g/dL Final 11/26/2023 4.2 3.5 - 5.0 g/dL Final 11/13/2023 3.7 3.5 - 5.0 g/dL Final Comment: Testing performed by: [facility], [address] [place] [phone] Calcium Date Value Ref Range Status 12/24/2023 9.5 8.5 - 10.3 mg/dL Final 11/26/2023 10.1 8.5 - 10.3 mg/dL Final 11/13/2023 9.6 8.5 - 10.3 mg/dL Final Comment: Testing performed by: [facility], [address] [place] [phone] Phosphorus, pl Date Value Ref Range Status 12/24/2023 2.6 2.3 - 4.5 mg/dL Final Comment: Testing performed by: [facility], [address] [place] [phone] 11/26/2023 2.8 2.3 - 4.5 mg/dL Final Comment: Testing performed by: [facility], [address] [place] [phone] 10/29/2023 2.3 2.3 - 4.5 mg/dL Final Comment: Testing performed by: [facility], [address] [place] [phone] PTH Date Value Ref Range Status 10/18/2022 210 (H) 15 - 65 pg/mL Final 04/14/2019 554 (H) 15 - 65 pg/mL Final Vitamin D 25-OH Date Value Ref Range Status 12/24/2023 21 (L) 30 - 80 ng/mL Final 11/26/2023 19 (L) 30 - 80 ng/mL Final 10/29/2023 21 (L) 30 - 80 ng/mL Final Hgb Date Value Ref Range Status 12/24/2023 12.3 11.9 - 15.5 g/dL Final Comment: Testing performed by: [facility], [address] [place] [phone] 11/26/2023 10.7 (L) 11.9 - 15.5 g/dL Final Comment: Testing performed by: [facility], [address] [place] [phone] 11/13/2023 11.0 (L) 12.1 - 15.1 g/dL Final Comment: Testing performed by: [facility], [address] [place] [phone] Iron Date Value Ref Range Status 11/15/2022 67 35 - 145 mcg/dL Final 11/04/2015 51 35 - 145 mcg/dl Transferrin saturation Date Value Ref Range Status 11/15/2022 24 20 - 50 % Final 11/04/2015 14 (L) 20 - 50 % Ferritin Date Value Ref Range Status 11/04/2015 39 15 - 150 ng/ml Protein/creatinine ratio Date Value Ref Range Status 10/29/2023 156.1 0.0 - 180.0 mg/g CR Final 08/27/2023 126.0 0.0 - 180.0 mg/g CR Final 06/27/2023 68.9 0.0 - 180.0 mg/g CR Final DATE Na K CO2 BUN SCr Alb Ca Phos PTH Vit D Hb Iron TSAT Ferritin U P/C eGFR RADIOLOGY AND DIAGNOSTIC DATA No results found for this or any previous visit. No results found for this or any previous visit. 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 Prior CT showed multiple hepatic metastases, hepatic serosal deposits, vaginal cuff metastases, nodules studding the sigmoid colon and small bowel, peritoneal nodules or retroperitoneal lymphadenopathy. Patient currently on clinical trial. TECHNIQUE: Transaxial computed tomographic images of the abdomen and pelvis were obtained with intravenous contrast according to the standard protocol after the uneventful administration of 93 mL Opti-Ray 350 intravenous contrast. COMPARISON: CT 03/21/2022 FINDINGS: The lung bases are clear. Heart size is normal. No pericardial effusion. Redemonstrated are multiple hypoattenuating lesions of the liver with peripheral enhancement, compatible with known liver metastases. For example, there is a lesion in hepatic segment 4A that measures 2.3 x 2.1 cm, previously 2.4 x 2.2 cm (series 2, image 35). Stable size of a 1.0 cm subserosal deposits at the inferior edge of the liver (series 2, image 61). There is no definite new suspicious liver lesion. The hepatic veins are patent. The portal vein, superior mesenteric vein and splenic vein are patent. There is no biliary ductal dilation. The gallbladder surgically absent. The pancreas is normal. There are multiple subcentimeter hypoattenuating lesions in the spleen, which are stable and may represent cysts or lymphangiomas. The adrenal glands are normal. There is a stable hypoattenuating lesion in the right kidney which measures slightly greater than fluid attenuation and may represent hemorrhagic or proteinaceous cyst. Stable trace perinephric stranding. The kidneys enhance symmetrically. There is no hydronephrosis. There is stable size of an enhancing 0.9 cm aortocaval lymph node. There is a second aortocaval lymph node with a surgical clip likely representing sequelae of prior biopsy. The urinary bladder is normal. The uterus is surgically absent. There is a enhancing soft tissue nodule seen adjacent to vaginal cuff measures 2.2 x 1.6 cm, previously 2.8 x 2.4 cm. There is no pelvic free fluid. No pelvic lymphadenopathy. There is wall thickening and submucosal edema of the rectum with perirectal soft tissue stranding (series 2, image 197).There are postsurgical changes of colectomy with left lower quadrant diverting loop ileostomy. There is stable diffuse thickening of the sigmoid colon with colonic diverticulosis and multiple mural enhancing nodules, including a nodule that has areas the adjacent small bowel (series 2, image 157). There are multiple stable peritoneal soft tissue nodules, for example there is a 0.7 cm nodule anterior to loops of small bowel in the lower pelvis (series 2, image 25). A 4 mm. The nodular partially tethers a loop of small bowel in the right hemiabdomen is stable (series 2, image 127). The small bowel is normal in caliber. There is a duodenal diverticulum. The stomach is normal. There is no intra-abdominal free air. There is mild multilevel degenerative disc disease. There is no acute fracture or suspicious osseous lesion. Impression 1. Interval increased wall thickening and submucosal edema of the rectum with surrounding stranding of the perirectal fat, consistent with proctitis. No findings of bowel obstruction. 2. Stable metastatic disease in the abdomen and pelvis as evidenced by hepatic metastases, hepatic serosal deposits, vaginal cuff metastases, numerous soft tissue nodules studding the sigmoid colon and loops of small bowel, peritoneal nodules and retroperitoneal lymphadenopathy. 3. Stable diffuse thickening of the sigmoid colon with multiple colonic diverticula, likely representing sequela of prior diverticular disease. Dictated by: Lexie Adame M.D. The radiology attending physician has personally reviewed this study, and had reviewed and/or edited this written report and agrees with it. Electronically signed by: Jeet Yan M.D. No results found for this or any previous visit. No results found for this or any previous visit. ASSESSMENT AND PLAN Chronic kidney disease Stage 2/ Early stage ANNE-MARIE: Concern for CKD in the presence of recent rise of Cr which has since downtrended to 1.32. This can be explained by her recent ANNE-MARIE but would need further monitoring. Most recent labs show stable electrolytes and creatinine which is 1.19. She does have low phosphorus which is likely due to a diet lowin phosphorus and also she likely has some element of poor absorption given she has had multiple abdominal injuries for her metastatic cancer. She is avoiding all medications that may cause damage toher kidneys including NSAIDs. Hypertension Patient appears to have elevated blood pressures and is currently on Olmesartan 20mg- HCTZ 12.5, with excellent blood pressure control. -continue olmesartan 20 mg hydrochlorothiazide 12.5 mg Anemia of CKD Hemoglobin a few weeks ago was 11.6 which is at target Secondary hyperparathyroidism Can be 2/2 CKD. PTH at 210. Infrequently taking Vitamin D. most recent vitamin-D level is 19. Will replete with oral vitamin-D replacement and recheck her PTH after she has completed replacement -Will continue OTC vitamin D3 DISPOSITION: The patient will return follow up in 6 months. documented in this encounter Plan of Treatment Scheduled Orders Name Type Priority Associated Diagnoses Order Schedule POCT urinalysis dipstick Point of Care Testing Routine Acute cystitis with hematuria 8 Occurrences starting 01/14/2024 until 07/16/2024, 1 completed documented as of this encounter Procedures Procedure Name Priority Date/Time Associated Diagnosis Comments POCT URINALYSIS DIPSTICK Routine 01/14/2024 4:46 PM CDT Acute cystitis with hematuria documented in this encounter Results * (ABNORMAL) Urine culture Urine, bladder (01/14/2024 5:07 PM CDT) Report Final Report: Greater than or equal to 100,000 colonies/mL of Klebsiella pneumoniae (.) Organism [facility] Urine, bladder 01/14/2024 5: 07 PM CDT 01/14/2024 5:50 PM CDT Narrative [facility] - 01/16/2024 10:36 AM CDT Testing performed by [facility] ([phone]) Organism Antibiotic Method Susceptibility Klebsiella pneumoniae Ampicillin [...] INTERPRETATION Susceptible Klebsiella pneumoniae Cefdinir INTERPRETATION Susceptible Alejo Mi MD LAB MICROBIOLOGY - GENER AL ORDERABLES Final Result [facility] Department [place] [address] * (ABNORMAL) POCT urinalysis dipstick (01/14/2024 4:46 PM CDT) Pathologist [facility] Glucose, ur, POC Negative Negative MG/DL Bilirubin, ur, POC Negative Negative, Small, Moderate, Large Ketones, ur, POC Negative Negative Specific [place], POC 1.025 1.003 - 1.030 Blood, ur, POC Moderate(A) Negative pH, ur, POC 5.5 5.0 - 8.0 Protein, ur, POC Trace(A) Negative Urobilinogen, urine, POC 0.2 0.2 - 1.0 mg/dL Nitrite, ur, POC Negative Negative Leukocytes, ur, POC Small(A) Negative Lot Number [id number] Urine 01/14/2024 4:46 PM CDT us Alejo Mi MD POINT OF CARE TEST ORDER OFE Final Result documented in this encounter Visit Diagnoses Diagnosis Acute cystitis with hematuria- Primary Benign essential hypertension Essential hypertension, benign Stage 3b chronic kidney disease (HCC) Acute cystitis with hematuria documented in this encounter Discontinued Medications Medication Sig Discontinue Reason Start Date End Da te DULoxetine DR (CYMBALTA) 30 mg capsule Take 1 capsule (30 mg total) by mouth daily Duplicate order 04/24/2019 01/14/2024 documented as of this encounter Historical Medications * This list may reflect changes made after this encounter. DULoxetine DR (CYMBALTA) 60 mg capsule 1 capsule (60 mg total) 01/07/2024 05/21/2024 added in this encounter Care Teams Windows 7 Deployment Lead Relationship Specialty Start Date End Date Julio César Briseno MD PCP - General 10/01/16 Eren Cr MD Referring Physician Medical Oncology 11/25/18 Yohana Bowen MD Radiation Oncologist Radiation Oncology 11/25/18 Alejo Mi MD [address] [address] Referring Physician Nephrology 03/07/23 documented as of this encounter
--- OUTSIDE RECORDS SUMMARY | 2024-06-25 22:07 | XMS_ITS | Encounter Summary ---
Author Organization [facility] Healthcare Address [address] [place] [address] Care Team Providers Care Service Attendant Name Role Phone Julio César Briseno MD Primary Care Provider [phone] Eren Cr MD Unavailable [phone] Yohana Bowen MD Unavailable Alejo Mi MD Unavailable [phone] Encounter Details Date Type Department Care Team (Latest Contact Info) Description 11/13/2023 12:17 PM CDT - 11/13/2023 11:59 PM CDT Hospital Encounter [facility] ([facility]) [address] [place] [phone] Neuroendocrine carcinoma (HCC); Malignant neoplasm metastatic to [...] on file 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 Gender Identity Not on file Sexual Orientation [...] by mouth nightly 0.9 % sodium chloride ([facility] sodium chloride 0.9%) injectionIndicati ons:line care Infuse 10 mL into a venous catheter once a week On saturday 4 0.9 % sodium chloride (sodium chloride 0.9%) 0.9% infusion 05/22/2023 4 ascorbic acid, vitamin C, 500 mg capsuleIndication s:supplement 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 Avoid Jas's Wort, grapefruit products and [place] oranges while on treatment. 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) DIFFERENTIAL AUTO Routine 11/13/2023 11: 25 AM CDT 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) CBC WITH AUTO DIFFERENTIAL Routine 11/13/2023 11:25 AM CDT 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) COMPREHENSIVE METABOLIC PANEL Routine 11/13/2023 11:25 AM CDT 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) documented in this encounter Results * (ABNORMAL) eGFR (11/13/2023 11:25 AM CDT) eGFR 57(L) >=60 mL/min/1. 73 m2 Comment: Interpretive Data [...] was last reviewed 2021. Testing performed by: [facility], [address] [place] [phone] Blood 11/13/2023 11:2 5 AM CDT 11/13/2023 11:29 AM CDT us Eren Cr MD LAB BLOOD ORDERABLES Final Re sult [facility] One [facility] Department [place] [address] * (ABNORMAL) Differential, auto (11/13/2023 11:25 AM CDT) Neutrophil abs 2.3 1.5 - 6.6 K/cumm Comment:Testing performed by : [facility], [address] [place] [phone] Lymphocyte abs 0.5(L) 1.2 - 3.3 K/cumm CERNER BJ Comment:Testing performed by : [facility], [address] [place] [phone] Monocyte abs 0.5 0.2 - 1.2 K/cumm CERNER BJ Comment:Testing performed by : [facility], [address] [place] [phone] Eosinophil abs 0.2 0.0 - 0.5 K/cumm CERNER BJ Comment:Testing performed by : [facility], [address] [place] [phone] Basophil abs 0.0 0.0 - 0.2 K/cumm CERNER BJ Comment:Testing performed by : [facility], [address] [place] [phone] Neutrophil pct 64.9 % CERNER BJ Comment: Interpretive Data Percent cell count reference ranges are not reported, since discordance with absolute values may lead to misinterpretation of CBC data. Current Interpretive Data was last revised on 2017. Testing performed by: [facility], [address] [place] [phone] Lymphocyte pct 14.4 % JASON BLACK Comment: Interpretive Data Percent cell count reference ranges are not reported, since discordance with absolute values may lead to misinterpretation of CBC data. Current Interpretive Data was last revised on 2017. Testing performed by: [facility], [address] [place] [phone] Monocyte pct 14.9 % JASON BLACK Comment:Testing performed by : [facility], [address] [place] [phone] Eosinophil pct 5.1 % JASON BLACK Comment:Testing performed by : [facility], [address] [place] [phone] Basophil pct 0.7 % JASON BLACK Comment:Testing performed by : [facility], [address] [place] [phone] Blood 11/13/2023 11:2 5 AM CDT 11/13/2023 11:29 AM CDT us Eren Cr MD LAB BLOOD ORDERABLES Final Re sult [facility] BL[facility] One [facility] Department of Laboratories [place], [place] [id number] * (ABNORMAL) CBC with auto differential (11/13/2023 11:25 AM CDT) WBC 3.5(L) 3.8 - 9.8 K/cumm Comment:Testing performed by : [facility], [address] [place] [phone] Hgb 11.0(L) 12.1 - 15.1 g/dL JASON LEAVITT Comment:Testing performed by : [facility], [address] [place] [phone] Hct 33.1(L) 36.1 - 44.3 % JASON LEAVITT Comment:Testing performed by : [facility], [address] [place] [phone] Plt 102(L) 140 - 440 K/cumm JASON BLACK Comment:Testing performed by : [facility], [address] [place] [phone] MPV 7.7 6.8 - 10.4 fL JASON BLACK Comment:Testing performed by : [facility], [address] [place], [place] [phone] RBC 3.41(L) 3.90 - 5.00 M/cumm JASON BLACK Comment:Testing performed by : [facility], [address] [place], [place] [phone] MCV 97.0 80.0 - 97.6 fL JASON BLACK Comment:Testing performed by : [address] [phone] MCH 32.3 26.7 - 33.7 pg JASON BLACK Comment:Testing performed by : [address] [phone] MCHC 33.3 32.7 - 35.5 g/dL JASON BLACK Comment:Testing performed by : [facility], [address] [place] [phone] RDW CV 15.6(H) 11.8 - 14.6 % JASON BLACK Comment:Testing performed by : [facility], [address] [place] [phone] NRBC abs 0.00 0.00 - 0.01 K/cumm JASON BLACK Comment:Testing performed by : [address] [phone] Blood 11/13/2023 11:2 5 AM CDT 11/13/2023 11:29 AM CDT us Eren Cr MD LAB BLOOD ORDERABLES Final Re sult [facility] BL[facility] Department [place] [address] * (ABNORMAL) Comprehensive metabolic panel (11/13/2023 11:25 AM CDT) Sodium 139 135 - 145 mmol/L Comment:Testing performed by : [facility], [address] [place] [phone] Potassium, pl 4.2 3.3 - 4.9 mmol/L CERNER BJ Comment:Testing performed by : [facility], [address] [place] [phone] Chloride 109 97 - 110 mmol/L [facility] Comment:Testing performed by : [facility], [address] [place] [phone] CO2 25 22 - 32 mmol/L [facility] Comment:Testing performed by : [facility], [address] [place] [phone] Anion gap 5 2 - 15 mmol/L CERNER BJ Comment:Testing performed by : [facility], [address] [place] [phone] BUN 13 6 - 25 mg/dL CERNER BJ Comment:Testing performed by : [facility], [address] [place] [phone] Creatinine 1.03 0.60 - 1.10 mg/dL CERNER BJ Comment:Testing performed by : [facility], [address] [place] [phone] Glucose 73 70 - 199 mg/dL CERNER BJ Comment: Interpretive Data Fasting glucose >/= 126 [...] was last revised 2022. Testing performed by: [facility], [address] [place] [phone] Calcium 9.6 8.5 - 10.3 mg/dL [facility] Comment:Testing performed by : [facility], [address] [place] [phone] Bilirubin, total 0.4 0.1 - 1.2 mg/dL [facility] Comment:Testing performed by : [facility], [address] [place] [phone] Protein, pl 6.0(L) 6.5 - 8.5 g/dL [facility] Comment:Testing performed by : [facility], [address] [place] [phone] Albumin 3.7 3.5 - 5.0 g/dL [facility] Comment:Testing performed by : [facility], [address] [place] [phone] Alk phos 73 40 - 130 Units/L [facility] Comment:Testing performed by : [facility], [address] [place] [phone] ALT 16 7 - 45 Units/L [facility] Comment:Testing performed by : [facility], [address] [place] [phone] AST 25 10 - 45 Units/L [facility] Comment:Testing performed by : [facility], [address] [place] [phone] Blood 11/13/2023 11:2 5 AM CDT 11/13/2023 11:29 AM CDT us Eren Cr MD LAB BLOOD ORDERABLES Final Re sult [facility] One [facility] Department of Laboratories [place], [place] [id number] documented in this encounter Visit Diagnoses Diagnosis Neuroendocrine carcinoma (HCC) Other malignant neoplasm of unspecified site 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) documented in this encounter Care Teams Service Attendant Relationship Specialty Start Date End Date Julio César Briseno MD PCP - General 10/01/16 Eren Cr MD Referring Physician Medical Oncology 11/25/18 Yohana Bowen MD Radiation Oncologist Radiation Oncology 11/25/18 Alejo Mi MD [address] [address] Referring Physician Nephrology 03/07/23 documented as of this encounter
--- OUTSIDE RECORDS SUMMARY | 2024-06-25 22:07 | XMS_ITS | Encounter Summary ---
Author Organization [facility] Address [address] [place] [address] Phone Care Team Providers Care Detective Captain Name Role Phone Julio César Briseno MD Primary Care Provider [phone] Eren Cr MD Unavailable [phone] Yohana Bowen MD Unavailable MchenryAlejo Ramos MD Unavailable [phone] Reason for Visit * Reason Comments Injections Sandostatin/XGeva * Episode Based Medications (Routine) - Authorized Specialty Diagnoses / Procedures Referred By Contac t Referred To Contact Oncology Diagnoses 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) Procedures ME OCTREOTIDE INJECTION, DEPOT Octreotide 28 Day Cycles - Carcinoid Eren Cr MD [address] [facility] [address] [place] [address] Phone: tel: fax: [facility] [address] [address] Phone: tel: fax: Referral ID Status Reason Start Date Expiration Date V isits Requested Visits Authorized [id number] Authorized 11/28/2017 02/05/2025 1 150 Encounter Details Date Type Department Care Team (Late st Contact Info) Description 11/26/2023 2:30 PM CDT Infusion [facility] Oncology [address] [place] [address] 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 [...] Sign Reading Time Taken Comments Blood Pressure 197/88 11/26/2023 3:16 PM CDT Pulse 78 11/26/2023 3:16 PM CDT Temperature - - Respiratory Rate 18 11/26/2023 3:16 PM CDT Oxygen Saturation 92% 11/26/2023 3:16 PM CDT Inhaled Oxygen Concentration - - Weight - - Height - - Body Mass Index - - documented in this encounter Plan of Treatment [...] 120 mg 120 mg, subcutaneous, Once, On Sat11/26/23 at 1315, For 1 dose, Calcium level should be greater than 8 mg/dl Administer injection in upper arm, abdomen or upper thigh Refrigerate. Allow to stand 15 to 30 mins prior to useIndications:Neuro-e ndocrine carcinoma (HCC),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) Given 11/26/2023 1:34 PM CDT 120 mg Right Lower Abdomen octreotide LAR (SandoSTATIN LAR) extended release intramuscular injection 30 mg 30 mg, intramuscular, Once, On Sat11/26/23 at 1315, For 1 dose, Refrigerate. For IM intragluteal administration only- alternate gluteal sites. Shake.Indications:Neur oendocrine carcinoma (HCC),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) Given 11/26/2023 1:35 PM CDT 30 mg Right Ventrogluteal ondansetron (ZOFRAN) injection 8 mg 8 mg, intravenous, Administer over 2 Minutes, Once, On Sat11/26/23 at 1345, For 1 doseIndications:Neuroe ndocrine carcinoma (HCC),Dehydration Given 11/26/2023 1:27 PM CDT 8 mg sodium chloride 0.9% bolus 1,000 mL 1,000 mL, intravenous, at 500 mL/hr, Administer over 2 Hours, Once, On Sat11/26/23 at 1345, For 1 doseIndications:Neuroe ndocrine carcinoma (HCC),Dehydration New Bag 11/26/2023 1:10 PM CDT 1,000 mL 500 mL/hr documented in this encounter Orders Nursing Count Last Ordered Date First Orde red Date ONCBCN NURSING COMMUNICATION [id number] 1 0 11/26/2023 PHYSICIAN COMMUNICATION ORDER 1 11/26/2023 Appointment Requests Count Last Ordered Date Fi rst Ordered Date ONCBCN INJECTION APPOINTMENT REQUEST 11/06 documented in this encounter Care Teams Detective Captain Relationship Specialty Start Date End Date Julio César Briseno MD PCP - General 10/01/16 Eren Cr MD Referring Physician Medical Oncology 11/25/18 Yohana Bowen MD Radiation Oncologist Radiation Oncology 11/25/18 Alejo Mi MD [address] [place] [address] Referring Physician Nephrology 03/07/23 documented as of this encounter
--- OUTSIDE RECORDS SUMMARY | 2024-06-25 22:07 | XMS_ITS | Encounter Summary ---
Author Organization [facility] Address [address] [place] [address] Phone Care Team Providers Care Hospital Director Name Role Phone Julio César Briseno MD Primary Care Provider [phone] Eren Cr MD Unavailable [phone] Yohana Bowen MD Unavailable ClayAlejo Ramos MD Unavailable [phone] Reason for Visit * Reason Comments OP Infusion * Episode Based Medications (Routine) - Authorized Specialty Diagnoses / Procedures Referred By Contac t Referred To Contact Oncology Diagnoses 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) Procedures CT DENOSUMAB INJECTION DENOSUMAB (XGEVA) Eren Cr MD [address] [place] [address] [address] [place] [address] Phone: tel: fax: [facility] [address] [facility] 7th [place] [address] Phone: tel: Referral ID Status Reason Start Date Expiration Date V isits Requested Visits Authorized [id number] Authorized 03/02/2019 10/06/2024 1 60 Encounter Details Date Type Department Care Team (Late st Contact Info) Description 12/24/2023 1:00 PM CDT Infusion [facility] Oncology [address] [place] [address] Neuroendocrine carcinoma (HCC) (Primary Dx); Dehydration; 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); Neuro-endocrine carcinoma (HCC); Malignant neoplasm metastatic [...] on file 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 female who presents for 500 mL NS hydration. Pre-treatment Nursing Assessment Nursing Assessment LOC: Alert, Awake Constitutional: Dizziness, Weakness Fatigue: Constant Any falls since your last visit?: No Orientation: Oriented x4 Behavior: Calm Speech: Clear Language: No aphasia Vision: At baseline Peripheral Neuropathy: No Oral Mucosa Grade: Normal (0) Pt states has potential to be ?: No Shortness of Breath?: No Lungs auscultated PRN: No Pt is on oxygen?: No Appetite: Poor (3 small meals/day - a few bites at each meal) Nausea/Vomiting: Yes Diarrhea: Yes Constipation: No Skin Condition/Temp: Warm, Dry Swelling: No Additional Notes: Octreotide and xgeva administered as well. Pt denies recent/upcoming dental work and jaw pain. BP: 124/72 Temp: 36.6 ??C (97.9 ??F) Temp src: Oral Pulse: 86 Resp: 17 SpO2: 96 % Weight: 73.8 kg (162 lb 11.2 oz) Treatment Patient: met treatment parameters Pre blood return: Brisk [place] Viv[place] tolerated treatment well. Patient was frequently observed and monitored throughout the administration of their treatment. Post blood return: Brisk IV access post infusion: NS Patient Education Treatment Education: Information/teaching given to patient including process and procedure related to today's visit Response: Verbalizes understanding Discharge Plan Discharge instructions given to patient. Future appointments given and reviewed with treatment plan. Discharge Mode: Ambulatory Accompanied by: Family Discharged To: Home in stable condition documented in this encounter Plan of Treatment Not on file documented as of this encounter Visit Diagnoses Diagnosis Neuroendocrine carcinoma (HCC)- Primary Other malignant neoplasm of unspecified site Dehydration 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) Neuro-endocrine carcinoma (HCC) Other malignant neoplasm of unspecified site 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) documented in this encounter Administered Medications Inactive Administered Medications - up to 3 most recent administrations Medication Order MAR Action Action Date Dose Rate Site denosumab (XGEVA) subcutaneous syringe 120 mg 120 mg, subcutaneous, Once, On Sat12/24/23 at 1345, For 1 dose, Calcium level should be greater than 8 mg/dl Administer injection in upper arm, abdomen or upper thigh Refrigerate. Allow to stand 15 to 30 mins prior to useIndications:Neuro-en docrine carcinoma (HCC),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) Given 12/24/2023 2:28 PM CDT 120 mg Right Lower Abdomen octreotide LAR (SandoSTATIN LAR) extended release intramuscular injection 30 mg 30 mg, intramuscular, Once, On Sat12/24/23 at 1345, For 1 dose, Refrigerate. For IM intragluteal administration only- alternate gluteal sites. Shake.Indications:Neuro endocrine carcinoma (HCC),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) Given 12/24/2023 2:28 PM CDT 30 mg Left Ventrogluteal sodium chloride 0.9% bolus 500 mL 500 mL, intravenous, at 500 mL/hr, Administer over 1 Hours, Once, On Sat12/24/23 at 1345, For 1 doseIndications:Neuroen docrine carcinoma (HCC),Dehydration New Bag 12/24/2023 1:18 PM CDT 500 mL 500 mL/hr documented in this encounter Orders Nursing Count Last Ordered Date First Orde red Date ONCBCN NURSING COMMUNICATION [id number] 12/23 ONCBCN NURSING COMMUNICATION [id number] 1 0 12/24/2023 PHYSICIAN COMMUNICATION ORDER 1 12/24/2023 documented in this encounter Care Teams Hospital Director Relationship Specialty Start Date End Date Julio César Briseno MD PCP - General 10/01/16 Eren Cr MD Referring Physician Medical Oncology 11/25/18 Yohana Bowen MD Radiation Oncologist Radiation Oncology 11/25/18 Alejo Mi MD [address] [place] [address] Referring Physician Nephrology 03/07/23 documented as of this encounter
--- OUTSIDE RECORDS SUMMARY | 2024-06-25 22:07 | XMS_ITS | Encounter Summary ---
Author Organization [facility] Address [address] [place] [address] Phone Care Team Providers Care Program Advocate Name Role Phone Julio César Briseno MD Primary Care Provider [phone] Eren Cr MD Unavailable [phone] Yohana Bowen MD Unavailable AmbridgeAlejo Ramos MD Unavailable [phone] Reason for Visit * Episode Based Medications (Routine) - Closed Specialty Diagnoses / Procedures Referred By Contac t Referred To Contact Diagnoses Neuro-endocrine carcinoma (HCC) Procedures study [id number] phase III cabozantinib Eren Cr MD [address] [place] [address] Phone: tel: fax: [facility] [address] [facility] 7th [place] [address] Phone: tel: Referral ID Status Reason Start Date Expiration Date Visits Re quested Visits Authorized [id number] Closed 06/21/2021 06/26/2024 1 99 Encounter Details Date Type Department Care Team (Latest Contact Info) Description 11/26/2023 2:30 PM CDT Research Med Pick-Up/CTRU Leak Detector [facility] [address] [place] [address] Neuro-endocrine carcinoma (HCC) (Primary Dx) Social History [...] Ordered Date First Ordered Date [id number] cabozantinib (/[id number]) tablet 20 mg 1 11/26/2023 Appointment Requests Count Last Ordered Date Fi rst Ordered Date ONCBCN TAKE HOME STUDY DRUG APPT 1 11/26/19 24 documented in this encounter Care Teams Program Advocate Relationship Specialty Start Date End Date Julio César Briseno MD PCP - General 10/01/16 Eren Cr MD Referring Physician Medical Oncology 11/25/18 Yohana Bowen MD Radiation Oncologist Radiation Oncology 11/25/18 Alejo Mi MD [address] [place] [address] Referring Physician Nephrology 03/07/23 documented as of this encounter
--- OUTSIDE RECORDS SUMMARY | 2024-06-25 22:07 | XMS_ITS | Encounter Summary ---
Author Organization [facility] Address [address] [place] [address] Phone Care Team Providers Care Polymerization Oven Tender Name Role Phone Julio César Briseno MD Primary Care Provider Eren Cr MD Unavailable [phone] Yoahna Bowen MD Unavailable Alejo Mi MD Unavailable [phone] Reason for Visit * Reason Comments OP Infusion Encounter Details Date Type Department Care Team (Late st Contact Info) Description 11/26/2023 1:00 PM CDT Infusion [facility] Oncology [address] [place] [id number] Neuroendocrine carcinoma (HCC) (Primary Dx); Nausea; Dehydration Social History Tobacco Use Types Packs/Day Years [...] on file 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 Gender Identity Not on file Sexual Orientation Straight 02/19/2021 9: 29 AM CDT Occupation Industry Job Start Date Job End Date retired Not on file Not on file Not on file documented as of this encounter Last Filed Vital Signs Vital Sign Reading Time Taken Comments Blood Pressure 179/78 11/26/2023 3:57 PM CDT Pulse 62 11/26/2023 3:57 PM CDT Temperature 36.8 ??C (98.2 ??F) 11/26/2023 3:57 PM CD T Respiratory Rate 18 11/26/2023 3:57 PM CDT Oxygen Saturation 94% 11/26/2023 3:57 PM CDT Inhaled Oxygen Concentration - - Weight - - Height - - Body Mass Index - - documented in this encounter Nursing Notes * Hien Pat, IRVING - 11/26/2023 1:00 PM CDT Oncology Nursing Note [facility] ONCOLOGY La Chung is a 73 y.o. female who presents for treatment with IVF's and Zofran today. Patient was to receive Sandostatin and Xgeva injections today but having n/v. Assessed by MD today. BP elevated, will monitor. Pre-treatment Nursing Assessment Nursing Assessment LOC: Alert, Awake Constitutional: Fatigue Fatigue: Occassional Any falls since your last visit?: No Orientation: Oriented x4 Behavior: Calm Speech: Clear Language: No aphasia Vision: At baseline Peripheral Neuropathy: No Oral Mucosa Grade: Normal (0) Pt states has potential to be ?: No Shortness of Breath?: No (MARTINEZ, no change) Lungs auscultated PRN: No Pt is on oxygen?: No Respiratory Effort Characteristics: Dyspnea exertion Cough: Absent Sputum Amount: None Sputum Color: None Sputum Consistency: None Appetite: Fair, Poor Nausea/Vomiting: Yes (vomited X2 today. Antiemetics help sometimes) Abdomen: Soft Diarrhea: Yes (ongoing. Patient has ostomy putting out liquid stools. Took 2 doses of Imodium) Constipation: No Skin Condition/Temp: Warm, Dry Swelling: No BP: (!) 179/78 Temp: 36.8 ??C (98.2 ??F) Temp src: Oral Pulse: 62 Resp: 18 SpO2: 94 % Weight: 77.1 kg (170 lb) Pain Score: 0 - No pain Treatment Patient: met treatment parameters Pre blood return: Mary Chung tolerated treatment well. Patient was frequently observed and monitored throughout the administration of their treatment. Additional Notes: Pt had another episode of vomiting about 1 hr after Zofran given. BP remains elevated. Denies headache, vision issues or dizziness. Patient does report some lightheadedness with position changes. Post blood return: Brisk IV access post infusion: NS Patient Education Treatment Education: Information/teaching given to patient including symptom management, process and procedure related to today's visit, when to notify MD, and other: Pt to contact PCP regarding hypertension. Response: Verbalizes understanding Discharge Plan Discharge instructions given to patient. Future appointments given and reviewed with treatment plan. Discharge Mode: Ambulatory Accompanied by: Spouse Discharged To: Home documented in this encounter Plan of Treatment Not on file documented as of this encounter Visit Diagnoses Diagnosis Neuroendocrine carcinoma (HCC)- Primary Other malignant neoplasm of unspecified site Nausea Nausea alone Dehydration documented in this encounter Orders Medications Ordered That Brett ht Not Have Been Administered Count Last Ordered Date First Ordered Date ondansetron (ZOFRAN) injection 8 mg 1 11/25 sodium chloride 0.9% bolus 1,000 mL 1 11/25 Nursing Count Last Ordered Date First Orde red Date ONCBCN NURSING COMMUNICATION [id number] 1 11/25 Appointment Requests Count Last Ordered Date Fi rst Ordered Date INFUSION APPT REQUEST 90 MIN 1 11/26/2023 documented in this encounter Care Teams Polymerization Oven Tender Relationship Specialty Start Date End Date Julio César Briseno MD PCP - General 10/01/16 Eren Cr MD Referring Physician Medical Oncology 11/25/18 Yohana Bowen MD Radiation Oncologist Radiation Oncology 11/25/18 Alejo Mi MD [address] [place] [address] Referring Physician Nephrology 03/07/23 documented as of this encounter
--- OUTSIDE RECORDS SUMMARY | 2024-06-25 22:07 | XMS_ITS | Encounter Summary ---
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 Gender Identity Not on file Sexual Orientation [...] Ordered Date First Ordered Date INV-[facility] cabozantinib (2018-02-122/[id number]) tablet 20 mg 1 12/25/2023 Nursing Count Last Ordered Date First Orde red Date ONCBCN OK TO TREAT 1 12/25/2023 ONCBCN STUDY COMMUNICATION 1 12/25/2023 ONCBCN TREATMENT PARAMETERS 1 12/25/2023 Appointment Requests Count Last Ordered Date Fi rst Ordered Date ONCBCN TAKE HOME STUDY DRUG APPT 1 12/25/19 24 documented in this encounter Care Teams Mop Handle Assembler Relationship Specialty Start Date End Date Julio César Briseno MD PCP - General 10/01/16 Eren Cr MD Referring Physician Medical Oncology 11/25/18 Yohana Bowen MD Radiation Oncologist Radiation Oncology 11/25/18 Alejo Mi MD [id number] [place] [address] Referring Physician Nephrology 03/07/23 documented as of this encounter
--- OUTSIDE RECORDS SUMMARY | 2024-06-25 22:07 | XMS_ITS | Encounter Summary ---
Author Organization [facility] Address [address] [place] [address] Phone Care Team Providers Care Electrician Bus Name Role Phone Julio César Briseno MD Primary Care Provider Eren Cr MD Unavailable Yohana Bowen MD Unavailable Alejo Mi MD Unavailable [phone] Encounter Details Date Type Department Care Team (Late st Contact Info) Description 11/26/2023 Orders Only [facility] Oncology [address] [place] [address] Eren Cr MD [address] [place] [address] Neuroendocrine carcinoma (HCC) (Primary Dx); Malignant neoplasm [...] on file 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 Gender Identity Not on file Sexual Orientation Straight 02/19/2021 9: 29 AM CDT Occupation Industry Job Start Date Job End Date retired Not on file Not on file Not on file documented as of this encounter Plan of Treatment Not on file documented as of this encounter Results * (ABNORMAL) TSH (12/24/2023 10:20 AM CDT) Thyroid Stimulating Hormone 6.46(H) 0.30 - 4.20 mcIUnit/mL Blood 12/24/2023 10:2 0 AM CDT 12/24/2023 12:12 PM CDT Eren Cr MD LAB BLOOD ORDERABLES Final Re sult [facility] Department [place] [address] * Magnesium (12/24/2023 10:20 AM CDT) Magnesium 1.6 1.4 - 2.5 mg/dL Comment:Testing performed by : [facility], [address] [place] [address] Blood 12/24/2023 10:2 0 AM CDT 12/24/2023 10:21 AM CDT us Eren Cr MD LAB BLOOD ORDERABLES Final Re sult [facility] Department [place] [address] * (ABNORMAL) Comprehensive metabolic panel (12/24/2023 10:20 AM CDT) Sodium 140 135 - 145 mmol/L Comment:Testing performed by : [facility], [address] [place] [address] Potassium, pl 4.2 3.3 - 4.9 mmol/L [facility] Chloride 111(H) 97 - 110 mmol/L [facility] CO2 21(L) 22 - 32 mmol/L [facility] Anion gap 8 2 - 15 mmol/L [facility] BUN 17 6 - 25 mg/dL [facility] Creatinine 1.32(H) 0.60 - 1.10 mg/dL [facility] Glucose 143 70 - 199 mg/dL [facility] Comment: Interpretive Data Fasting glucose >/= 126 [...] Calcium 9.5 8.5 - 10.3 mg/dL [facility] Bilirubin, total 0.5 0.1 - 1.2 mg/dL [facility] Protein, pl 6.2(L) 6.5 - 8.5 g/dL [facility] Albumin 3.9 3.5 - 5.0 g/dL [facility] Alk phos 70 40 - 130 Units/L [facility] ALT 17 7 - 45 Units/L [facility] AST 28 10 - 45 Units/L [facility] Blood 12/24/2023 10:2 0 AM CDT 12/24/2023 10:21 AM CDT Eren Cr MD LAB BLOOD ORDERABLES Final Re sult [facility] Department [place] [address] * (ABNORMAL) CBC with auto differential (12/24/2023 10:20 AM CDT) [facility] WBC 4.1 3.8 - 9.9 K/cumm Comment:Testing performed by : [address] [address] Hgb 12.3 11.9 - 15.5 g/dL [facility] Comment:Testing performed by : [address] [address] Hct 37.9 35.6 - 45.5 % [facility] Comment:Testing performed by : [address] [address] Plt 114(L) 150 - 400 K/cumm [facility] Comment:Testing performed by : [address] [address] MPV 9.9 9.1 - 12.3 fL [facility] RBC 3.97 3.90 - 5.20 M/cumm [facility] MCV 95.5 81.3 - 96.4 fL [facility] MCH 31.0 27.1 - 33.3 pg [facility] MCHC 32.5 32.3 - 35.7 g/dL [facility] RDW CV 14.9 11.1 - 14.9 % [facility] RDW SD 51.9(H) 35.7 - 48.1 fL [facility] NRBC abs 0.00 0.00 - 0.01 K/cumm [facility] Blood 12/24/2023 10:2 0 AM CDT 12/24/2023 10:21 AM CDT Eren Cr MD LAB BLOOD ORDERABLES Final Re sult Performing Organization Address City/[facility]/ZIP Co de Phone Number [facility] Department [place] [address] * (ABNORMAL) Chromogranin A (12/24/2023 10:20 AM CDT) Chromogranin A 2819(H) <93 ng/mL [facility] Comment: Impaired renal or hepatic function or treatment with proton pump inhibitors may result in artifactual elevations of Chromogranin A. ADDITIONAL INFORMATION The testing method is a homogeneous time-resolved immunofluorescent assay manufactured by [employer] and performed on the [employer] Compact Plus. ? Values obtained with different [...] examination and other findings. Test Performed by: [place] [address] Trimmer Machine: Carley Tony Ph.D.; CLIA# [id number] Blood 12/24/2023 10:2 0 AM CDT 12/24/2023 2:46 PM CDT Eren Cr MD LAB BLOOD ORDERABLES Final Re sult [facility] I[facility] Department [place] [address] [facility] * (ABNORMAL) Vitamin D 25 hydroxy (12/24/2023 10:20 AM CDT) Vitamin D 25-OH 21(L) 30 - 80 ng/mL Blood 12/24/2023 10:2 0 AM CDT 12/24/2023 12:12 PM CDT Eren Cr MD LAB BLOOD ORDERABLES Final Re sult Performing Organization Address [facility] Co de Phone Number [facility] Department [place] [address] * Phosphorus (12/24/2023 10:20 AM CDT) Phosphorus, pl 2.6 2.3 - 4.5 mg/dL Comment:Testing performed by : [facility], [address] [place] [address] Blood 12/24/2023 10:2 0 AM CDT 12/24/2023 10:21 AM CDT Eren Cr MD LAB BLOOD ORDERABLES Final Re sult Performing Organization Address [facility] de Phone Number J[facility]ON [facility] [place] [address] * Lipid panel (12/24/2023 10:20 AM CDT) Cholesterol 132 30 - 199 [...] Data was last revised on 2018. Triglycerides 145 <=149 mg/dL [facility] Comment: Interpretive Data Ages < or = [...] Data was last revised on 2018. HDL 52 >=40 mg/dL [facility] Comment: Interpretive Data Ages < or = [...] was last revised on 2018. LDL, calculated 51 <=129 mg/dL [facility] Comment: Interpretive Data Ages < or = [...] was last revised on 2018. Non-HDL Cholesterol 80 mg/dL [facility] Comment: Interpretive Data Ages [...] last revised on 2018. Chol/HDL ratio 3 [facility] Blood 12/24/2023 10:2 0 AM CDT 12/24/2023 12:12 PM CDT us Eren Cr MD LAB BLOOD ORDERABLES Final Re sult [facility] [place] [address] documented in this encounter Visit Diagnoses Diagnosis Neuroendocrine carcinoma (HCC)- Primary Other malignant neoplasm of unspecified site 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) Neuro-endocrine carcinoma (HCC) Other malignant neoplasm of unspecified site documented in this encounter Orders Appointment Requests Count Last Ordered Date Fi rst Ordered Date ONCBCN CLINIC APPOINTMENT REQUEST 1 024 ONCBCN INJECTION APPOINTMENT REQUEST 1 12/06 ONCBCN LAB APPOINTMENT 1 12/24/2023 ONCBCN TAKE HOME STUDY DRUG APPT 1 12/24/19 24 documented in this encounter Care Teams Electrician Bus Relationship Specialty Start Date End Date Julio César Briseno MD PCP - General 10/01/16 Eren Cr MD Referring Physician Medical Oncology 11/25/18 Yohana Bowen MD Radiation Oncologist Radiation Oncology 11/25/18 Alejo Mi MD [address] [address] Referring Physician Nephrology 03/07/23 documented as of this encounter
--- OUTSIDE RECORDS SUMMARY | 2024-06-25 22:07 | XMS_ITS | Encounter Summary ---
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 Gender Identity Not on file Sexual Orientation [...] 1 tablet (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) by mouth lock assembler before breakfast 90 tablet 3 11/28/2023 lidocaine-priloca [...] nightly 0.9 % sodium chloride ([facility] sodium chloride 0.9%) injectionIndicati ons:line care Infuse 10 mL into a venous catheter once a week On saturday 4 0.9 % sodium chloride (sodium chloride 0.9%) 0.9% infusion 05/22/2023 4 ascorbic acid, vitamin C, 500 mg capsuleIndication s:supplement Take 1 tablet by mouth lock assembler before breakfast 07/04/2016 4 clotrimazole-beta methasone (LOTRISONE) cream Apply 1 Application topically daily as needed (rash) 4 coenzyme B03-yllulvy E 100-5 mg-unit capsuleIndication s:supplement Take 1 tablet by mouth lock assembler before breakfast 4 diphenoxylate-atr opine (LOMOTIL) 2.5-0.025 [...] -Heparin to flush 4 INV-[facility] cabozantinib/plac abdulkadir (/[id number]) 20 mg tabletIndications :cancer study Take 1 tablet (20 mg total) by mouth nightly Take on an empty stomach (no food for 2 hours before and 1 hour after each dose).?? Avoid Le Grand's Wort, grapefruit products and [place] oranges while on treatment. placed on hold [...] Procedure Name Priority Date/Time Associated Diagnosis Comments PROTEIN, URINE, RANDOM Routine 12/24/2023 3:47 PM CDT CREATININE, URINE, RANDOM Routine 12/24/2023 3:47 PM CDT documented in this encounter Results * Protein, urine, random (12/24/2023 3:47 PM CDT) Protein, ur, quant 44.7 mg/dL Comment: Interpretive Data No reference range established. Current interpretive data was last revised 2018. Testing performed by: [facility], [address] [place] [address] Urine 12/24/2023 3:47 PM CDT 12/24/2023 3:47 PM CDT us Eren Cr MD LAB URINE ORDERABLES Final Re sult Performing Organization Address [facility] Co de Phone Number [facility] [address] * Creatinine, urine, random (12/24/2023 3:47 PM CDT) Creatinine Ur 217.4 mg/dL Comment: Interpretive Data No reference range established. Current interpretive data was last revised 2018. Testing performed by: [facility], [address] [place] [address] Urine 12/24/2023 3:47 PM CDT 12/24/2023 3:47 PM CDT us Eren Cr MD LAB URINE ORDERABLES Final Re sult Performing Organization Address City/[facility] [place] [address] documented in this encounter Visit Diagnoses Not on filedocumented in this encounter Care Teams Jig Boring Machine Operator For Metal Relationship Specialty Start Date End Date Julio César Briseno MD PCP - General 10/01/16 Eren Cr MD Referring Physician Medical Oncology 11/25/18 Yohana Bowen MD Radiation Oncologist Radiation Oncology 11/25/18 Alejo Mi MD [address] [place] [address] Referring Physician Nephrology 03/07/23 documented as of this encounter
--- OUTSIDE RECORDS SUMMARY | 2024-06-25 22:07 | XMS_ITS | Encounter Summary ---
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 Gender Identity Not on file Sexual [...] 1 tablet (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) by mouth early childhood education instructor before breakfast 90 tablet 3 11/28/2023 lidocaine-priloca [...] skin every 30 (thirty) days Last dose 5/11/23 ostomy supplies misc Patient has colostomy and [...] by mouth nightly 0.9 % sodium chloride ([facility] sodium chloride 0.9%) injectionIndicati ons:line care Infuse 10 mL into a venous catheter once a week On saturday 4 0.9 % sodium chloride (sodium chloride 0.9%) 0.9% infusion 05/22/2023 4 ascorbic acid, vitamin C, 500 mg capsuleIndication s:supplement Take 1 tablet by mouth early childhood education instructor before breakfast 07/04/2016 4 clotrimazole-beta methasone (LOTRISONE) cream Apply 1 Application topically daily as needed (rash) 4 coenzyme X85-bstaiox E 100-5 mg-unit capsuleIndication s:supplement Take 1 tablet by mouth early childhood education instructor before breakfast 4 diphenoxylate-atr opine (LOMOTIL) 2.5-0.025 [...] week Fluids every -Heparin to flush 4 [id number]-WU_[id number] cabozantinib/plac abdulkadir (122/A021 602) 20 mg tabletIndications :cancer study Take 1 tablet (20 mg total) by mouth nightly Take on an empty stomach (no food for 2 hours before and 1 hour after each dose).?? Avoid [place]'s Wort, grapefruit products and [place] oranges while on treatment. placed on hold [...] Priority Date/Time Associated Diagnosis Comments EGFR STAT 12/24/2023 10:20 AM CDT Neuro-endocrine carcinoma (HCC) DIFFERENTIAL AUTO STAT 12/24/2023 10: 20 AM CDT Neuro-endocrine carcinoma (HCC) CHROMOGRANIN A Routine 12/24/2023 10:20 AM CDT 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) CBC WITH AUTO DIFFERENTIAL STAT 12/24/2023 10:20 AM CDT Neuro-endocrine carcinoma (HCC) VITAMIN D 25 HYDROXY Routine 12/24/2023 10:20 AM CDT 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) MANUAL DIFFERENTIAL STAT 12/24/2023 1 0:20 AM CDT Neuro-endocrine carcinoma (HCC) TSH Routine 12/24/2023 10:20 AM CDT Neuro-endocrine carcinoma (HCC) PHOSPHORUS Routine 12/24/2023 10:20 AM CDT 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) MAGNESIUM STAT 12/24/2023 10:20 AM CDT Neuro-endocrine carcinoma (HCC) LIPID PANEL Routine 12/24/2023 10:20 AM CDT 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) COMPREHENSIVE METABOLIC PANEL STAT 12/24/2023 10:20 AM CDT Neuro-endocrine carcinoma (HCC) documented in this encounter Results * (ABNORMAL) Manual Differential (12/24/2023 10:20 AM CDT) Differential Auto RBC morphology Present(A ) CERNER BJ Anisocytosis Slight(A) [facility] BJ Platelet estimate Decreased (A) [facility] BJ Blood 12/24/2023 10:2 0 AM CDT 12/24/2023 10:21 AM CDT us Eren Cr MD LAB BLOOD ORDERABLES Final Re sult Performing Organization Address [facility] de Phone Number JASON LEAVITT [facility] Department [place] [address] * (ABNORMAL) eGFR (12/24/2023 10:20 AM CDT) eGFR 42(L) >=60 mL/min/1. 73 m2 Comment: Interpretive Data [...] interpretive data was last reviewed 2021. Blood 12/24/2023 10:2 0 AM CDT 12/24/2023 10:21 AM CDT us Eren Cr MD LAB BLOOD ORDERABLES Final Re sult JASON BLACKH [facility] Department [place] [address] * Differential, auto (12/24/2023 10:20 AM CDT) Neutrophil abs 2.0 1.5 - 6.5 K/cumm Comment:Testing performed by : [facility], [address] [place] [id number] Imm gran abs 0.0 0.0 - 0.1 K/cumm [facility] Lymphocyte abs 1.5 0.8 - 3.3 K/cumm [facility] Monocyte abs 0.5 0.2 - 0.8 K/cumm [facility] Eosinophil abs 0.2 0.0 - 0.5 K/cumm [facility] Basophil abs 0.0 0.0 - 0.1 K/cumm [facility] Neutrophil pct 47.8 % [facility] Comment: Interpretive Data Percent cell count reference ranges are not reported, since discordance with absolute values may lead to misinterpretation of CBC data. Current Interpretive Data was last revised on 2017. Imm gran pct 0.2 % [facility] Comment: Interpretive Data Percent cell count reference ranges are not reported, since discordance with absolute values may lead to misinterpretation of CBC data. Current Interpretive Data was last revised on 2017. Lymphocyte pct 35.9 % [facility] Comment: Interpretive Data Percent cell count reference ranges are not reported, since discordance with absolute values may lead to misinterpretation of CBC data. Current Interpretive Data was last revised on 2017. Monocyte pct 11.5 % [facility] Comment: Interpretive Data Percent cell count reference ranges are not reported, since discordance with absolute values may lead to misinterpretation of CBC data. Current Interpretive Data was last revised on 2017. Eosinophil pct 3.9 % [facility] Comment: Interpretive Data Percent cell count reference ranges are not reported, since discordance with absolute values may lead to misinterpretation of CBC data. Current Interpretive Data was last revised on 2017. Basophil pct 0.7 % [facility] Comment: Interpretive Data Percent cell count reference ranges are not reported, since discordance with absolute values may lead to misinterpretation of CBC data. Current Interpretive Data was last revised on 2017. Blood 12/24/2023 10:2 0 AM CDT 12/24/2023 10:21 AM CDT us Eren Cr MD LAB BLOOD ORDERABLES Final Re sult [facility] Department [place] [address] * (ABNORMAL) CBC with auto differential (12/24/2023 10:20 AM CDT) WBC 4.1 3.8 - 9.9 K/cumm Comment:Testing performed by : [address] [address] Hgb 12.3 11.9 - 15.5 g/dL [facility] Comment:Testing performed by : [address] [address] Hct 37.9 35.6 - 45.5 % [facility] Comment:Testing performed by : [address] [address] Plt 114(L) 150 - 400 K/cumm [facility] Comment:Testing performed by : [address] [address] MPV 9.9 9.1 - 12.3 fL [facility] RBC 3.97 3.90 - 5.20 M/cumm [facility] MCV 95.5 81.3 - 96.4 fL [facility] MCH 31.0 27.1 - 33.3 pg [facility] MCHC 32.5 32.3 - 35.7 g/dL [facility] RDW CV 14.9 11.1 - 14.9 % [facility] RDW SD 51.9(H) 35.7 - 48.1 fL [facility] NRBC abs 0.00 0.00 - 0.01 K/cumm [facility] Blood 12/24/2023 10:2 0 AM CDT 12/24/2023 10:21 AM CDT us Eren Cr MD LAB BLOOD ORDERABLES Final Re sult [facility] Department [place] [address] * (ABNORMAL) Comprehensive metabolic panel (12/24/2023 10:20 AM CDT) Sodium 140 135 - 145 mmol/L Comment:Testing performed by : [facility], [address] [place] [address] Potassium, pl 4.2 3.3 - 4.9 mmol/L [facility] Chloride 111(H) 97 - 110 mmol/L [facility] CO2 21(L) 22 - 32 mmol/L [facility] Anion gap 8 2 - 15 mmol/L [facility] BUN 17 6 - 25 mg/dL [facility] Creatinine 1.32(H) 0.60 - 1.10 mg/dL [facility] Glucose 143 70 - 199 mg/dL [facility] Comment: Interpretive Data Fasting glucose [...] Calcium 9.5 8.5 - 10.3 mg/dL [facility] Bilirubin, total 0.5 0.1 - 1.2 mg/dL [facility] Protein, pl 6.2(L) 6.5 - 8.5 g/dL [facility] Albumin 3.9 3.5 - 5.0 g/dL [facility] Alk phos 70 40 - 130 Units/L [facility] ALT 17 7 - 45 Units/L [facility] AST 28 10 - 45 Units/L [facility] Blood 12/24/2023 10:2 0 AM CDT 12/24/2023 10:21 AM CDT Eren Cr MD LAB BLOOD ORDERABLES Final Re sult Performing Organization Address [facility] [place] [address] * Magnesium (12/24/2023 10:20 AM CDT) Magnesium 1.6 1.4 - 2.5 mg/dL Comment:Testing performed by : [facility], [address] [place] [address] Blood 12/24/2023 10:2 0 AM CDT 12/24/2023 10:21 AM CDT Eren Cr MD LAB BLOOD ORDERABLES Final Re sult Performing Organization Address [facility] Co de Phone Number [facility] [place] [address] * (ABNORMAL) TSH (12/24/2023 10:20 AM CDT) Thyroid Stimulating Hormone 6.46(H) 0.30 - 4.20 mcIUnit/mL Blood 12/24/2023 10:2 0 AM CDT 12/24/2023 12:12 PM CDT Eren Cr MD LAB BLOOD ORDERABLES Final Re sult Performing Organization Address [facility] [place] [address] * Lipid panel (12/24/2023 10:20 AM CDT) [...] revised on 2018. Triglycerides 145 <=149 mg/dL JASON BLACK Comment: Interpretive Data [...] revised on 2018. HDL 52 >=40 mg/dL JASON BLACK Comment: Interpretive Data [...] on 2018. LDL, calculated 51 <=129 mg/dL [facility] Comment: Interpretive Data Ages < [...] revised on 2018. Non-HDL Cholesterol 80 mg/dL [facility] Comment: Interpretive Data Ages < [...] revised on 2018. Chol/HDL ratio 3 [facility] Blood 12/24/2023 10:2 0 AM CDT 12/24/2023 12:12 PM CDT Eren Cr MD LAB BLOOD ORDERABLES Final Re sult Performing Organization Address [facility] Co de Phone Number [facility] [place] [address] * Phosphorus (12/24/2023 10:20 AM CDT) Phosphorus, pl 2.6 2.3 - 4.5 mg/dL Comment:Testing performed by : [facility], [address] [place] [address] Blood 12/24/2023 10:2 0 AM CDT 12/24/2023 10:21 AM CDT Eren Cr MD LAB BLOOD ORDERABLES Final Re sult Performing Organization Address [facility] de Phone Number [facility] [place] [address] * (ABNORMAL) Vitamin D 25 hydroxy (12/24/2023 10:20 AM CDT) [facility] Vitamin D 25-OH 21(L) 30 - 80 ng/mL Blood 12/24/2023 10:2 0 AM CDT 12/24/2023 12:12 PM CDT Eren Cr MD LAB BLOOD ORDERABLES Final Re sult Performing Organization Address [facility] [place] [address] * (ABNORMAL) Chromogranin A (12/24/2023 10:20 AM CDT) Chromogranin A 2819(H) <93 ng/mL [facility] Comment: Impaired renal or hepatic function or treatment with proton pump inhibitors may result in artifactual elevations of Chromogranin A. ADDITIONAL INFORMATION The testing method is a homogeneous time-resolved immunofluorescent assay manufactured by [employer] and performed on the [employer] Kryptor Compact Plus. ? Values obtained with [...] and other findings. Test Performed by: [facility] [address] [id number] Elevator Attendant: Carley Tony Ph.D.; CLIA# [id number] Blood 12/24/2023 10:2 0 AM CDT 12/24/2023 2:46 PM CDT us Eren Cr MD LAB BLOOD ORDERABLES Final Re sult [facility] Department [place] [address] [facility] Lab documented in this encounter Visit Diagnoses Diagnosis Neuroendocrine carcinoma (HCC) Other malignant neoplasm of unspecified site 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) Neuro-endocrine carcinoma (HCC) Other malignant neoplasm of unspecified site documented in this encounter Care Teams Slotter Operator Helper Relationship Specialty Start Date End Date Julio César Briseno MD PCP - General 10/01/16 Eren Cr MD Referring Physician Medical Oncology 11/25/18 Yohana Bowen MD Radiation Oncologist Radiation Oncology 11/25/18 Alejo Mi MD [address] [place] [address] Referring Physician Nephrology 03/07/23 documented as of this encounter
--- OUTSIDE RECORDS SUMMARY | 2024-06-25 22:07 | XMS_ITS | Encounter Summary ---
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) Procedures CT chest abdomen pelvis with contrast Eren Cr MD [address] [place] [address] Phone: tel: fax: [address] [address] Referral ID Status Reason Start Date Expiration Date Visits Re quested Visits Authorized [id number] Closed 10/18/2023 11/16/2024 1 1 Reason for Visit * MRI/CAT/PET Scan (Routine) - Closed Specialty Diagnoses / Procedures [facility] Referred To Contact Radiology Diagnoses 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) Procedures CT chest abdomen pelvis with contrast Eren Cr MD [address] [facility] [address] [place] [address] Phone: tel: fax: [address] [place] [address] Referral ID Status Reason Start Date Expiration Date Visits Re quested Visits Authorized [id number] Closed 10/18/2023 11/16/2024 1 1 Encounter Details Date Type Department Care Team (Latest Contact Info) Description 11/13/2023 10:37 AM CDT - 11/13/2023 11:59 PM CDT Hospital Encounter [facility] [address] [place] [id number] Eren Cr MD [address] [facility] [address] [facility] [place] [address] Neuroendocrine carcinoma (HCC); Malignant neoplasm metastatic to [...] 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 Gender Identity Not on file Sexual Orientation [...] by mouth nightly 0.9 % sodium chloride ([facility] sodium chloride 0.9%) injectionIndicati ons:line care Infuse 10 mL into a venous catheter once a week On saturday 4 0.9 % sodium chloride (sodium chloride 0.9%) 0.9% infusion 05/22/2023 4 ascorbic acid, vitamin C, 500 mg capsuleIndication s:supplement Take 1 tablet by mouth sap portal architect before breakfast 07/04/2016 4 clotrimazole-beta methasone (LOTRISONE) cream Apply 1 Application topically daily as needed (rash) 4 coenzyme W46-fuyiscy E 100-5 mg-unit capsuleIndication s:supplement Take 1 tablet by mouth sap portal architect before breakfast 4 diphenoxylate-atr opine (LOMOTIL) 2.5-0.025 [...] dose).?? Avoid [place]'s Wort, grapefruit products and [place] oranges while on treatment. 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) documented in this encounter Results * CT chest abdomen pelvis with contrast (11/13/2023 12:14 PM CDT) Anatomical Region Laterality Modality Body N/A Computed Tomogra phy 11/13/2023 2:35 PM CDT Impressions 11/14/2023 7:13 AM CDT [...] 500 Units (5 mL), intra-catheter, Once, On Sat11/13/23 at 1215, For 1 dose, For port decannulation., Indications: Maintain Patency of Indwelling Vascular CatheterIndications:Maintai n Patency of Indwelling Vascular Catheter Given 11/13/2023 12:15 PM CDT 500 Units ioversoL (OPTIRAY 350) syringe 75 mL 75 mL, intravenous, Once in imaging, contrast, Starting on Sat11/13/23 at 1207, For 1 dose Contrast Given 11/13/2023 12:09 PM CDT 75 mL documented in this encounter Care Teams Customs Opener Verifier Packer Relationship Specialty Start Date End Date Julio César Briseno MD PCP - General 10/01/16 Eren Cr MD Referring Physician Medical Oncology 11/25/18 Yohana Bowen MD Radiation Oncologist Radiation Oncology 11/25/18 Alejo Mi MD [address] [place] [address] Referring Physician Nephrology 03/07/23 documented as of this encounter
--- OUTSIDE RECORDS SUMMARY | 2024-06-25 22:08 | XMS_ITS | Encounter Summary ---
Author Organization [facility] Address [address] [place] [address] Phone Care Team Providers Care Escrow Manager Name Role Phone Julio César Briseno MD Primary Care Provider Eren Cr MD Unavailable [phone] Yohana Bowen MD Unavailable Alejo Mi MD Unavailable [phone] Encounter Details Date Type Department Care Team (Late st Contact Info) Description 09/04/2023 Orders Only [facility] Oncology [address] [place] [address] Eren Cr MD [address] [place] [address] Social History Tobacco Use Types Packs/Day Years [...] on file 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 Gender Identity Not on file Sexual Orientation Straight 02/19/2021 9: 29 AM CDT Occupation Industry Job Start Date Job End Date retired Not on file Not on file Not on file documented as of this encounter Plan of Treatment Not on file documented as of this encounter Visit Diagnoses Not on filedocumented in this encounter Care Teams Escrow Manager Relationship Specialty Start Date End Date Julio César Briseno MD PCP - General 10/01/16 Eren Cr MD Referring Physician Medical Oncology 11/25/18 Yohana Bowen MD Radiation Oncologist Radiation Oncology 11/25/18 Alejo Mi MD [address] [place] [address] Referring Physician Nephrology 03/07/23 documented as of this encounter
--- OUTSIDE RECORDS SUMMARY | 2024-06-25 22:08 | XMS_ITS | Encounter Summary ---
Author Organization [facility] Address [address] [place] [address] Phone Care Team Providers Care Receiving Operator Name Role Phone Julio César Briseno MD Primary Care Provider Eren Cr MD Unavailable [phone] Yohana Bowen MD Unavailable Alejo Mi MD Unavailable [phone] Encounter Details Date Type Department Care Team (Late st Contact Info) Description 09/27/2023 Telephone [facility] Oncology [address] [place] [address] Callie Hancock Social History Tobacco Use Types Packs/Day Years [...] on file 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 Requested pt to please call if any questions or concerns [phone]. documented in this encounter Plan of Treatment Not on file documented as of this encounter Visit Diagnoses Not on filedocumented in this encounter Care Teams Receiving Operator Relationship Specialty Start Date End Date Julio César Briseno MD PCP - General 10/01/16 Eren Cr MD Referring Physician Medical Oncology 11/25/18 Yohana Bowen MD Radiation Oncologist Radiation Oncology 11/25/18 Alejo Mi MD [address] [address] Referring Physician Nephrology 03/07/23 documented as of this encounter
--- OUTSIDE RECORDS SUMMARY | 2024-06-25 22:08 | XMS_ITS | Encounter Summary ---
Author Organization [facility] Healthcare Address [address] [place] [address] Care Team Providers Care Assessment Expert Name Role Phone Julio César Briseno MD Primary Care Provider [phone] Eren Cr MD Unavailable [phone] Yohana Bowen MD Unavailable Alejo Mi MD Unavailable [phone] Reason for Visit * Reason Comments OP Infusion Encounter Details Date Type Department Care Team (Latest Contact Info) Description 09/04/2023 10:45 AM MANAGER FIELD SALES - 09/04/2023 11:59 PM MANAGER FIELD SALES Hospital Encounter [facility] ([facility]) [address] [place] [id number] Dehydration (Primary Dx); Neuroendocrine carcinoma (HCC); 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); 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); Neuro-endocrine carcinoma (HCC) Discharge Disposition: Discharge [...] file Legal Sex Female 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 FIELD SALES Gender Identity Not on file Sexual Orientation Straight 02/19/2021 9: 29 AM CDT Occupation Industry Job Start Date Job End Date retired Not on file Not on file Not on file documented as of this encounter Last Filed Vital Signs Vital Sign Reading Time Taken Comments Blood Pressure 138/74 09/04/2023 1:55 PM MANAGER FIELD SALES Pulse 64 09/04/2023 1:55 PM MANAGER FIELD SALES Temperature 36.3 ??C (97.4 ??F) 09/04/2023 1:55 PM CS T Respiratory Rate 18 09/04/2023 1:55 PM MANAGER FIELD SALES Oxygen Saturation 98% 09/04/2023 1:55 PM MANAGER FIELD SALES Inhaled Oxygen Concentration - - Weight 77.7 kg (171 lb 6.4 oz) 09/04/2023 10:49 AM MANAGER FIELD SALES Height - - Body Mass Index 30.36 06/11/2023 3:18 PM MANAGER FIELD SALES documented in this encounter Discharge Instructions * Patient Instructions* Vivian Villar, [place] - 09/04/2023 11:30 AM MANAGER FIELD SALES .After 4:30 PM during the week, on weekends and holidays, call [phone] and ask to have the Appeals Rn Physician paged for you. Saturday through Saturday, 8 AM to 4:30 PM, call [phone] [facility] Oncology Physician at [facility] Medicine and ask for a member of your doctor's team. Special Instructions: Drink at least 64 ounces of decaffeinated liquid every day. Take your temperature 2 times a day. Bring your bottles of all medicines you are taking with you or a complete medication list to all appointments. Additional Information: Diet: As tolerated. Avoid raw or undercooked meats. Activity: As tolerated. Care Instructions: Take all medications as prescribed. Special Instructions: Drink at least 64 ounces of decaffeinated liquid every day. Take your temperature 2 times a day. Bring your bottles of all medicines you are taking or a complete medication list with you to all appointments. CALL YOUR DOCTOR RIGHT AWAY IF YOU [...] any non-prescription medicine without your doctor's approval GER FIELD SALES documented in this encounter Medications at Time of Discharge cholecalciferol (VITAMIN D-3) 1,000 unit Take 1 tablet/capsule (1,000 Units total) by mouth daily 90 tablet/capsule 3 11/16/2022 denosumab (Xgeva) 120 mg/1.7 mL (70 mg/mL) injection Inject 1.7 mL (120 mg total) under the skin every 28 (twenty-eight) days lidocaine-priloc cheyenne (lidocaine-prilo jose) creamIndications :Neuro-endocrine carcinoma (HCC) Apply topically as needed for pain Apply a generous amount topically to port site 1 hour prior to lab/treatment, do not rub in, and cover with non absorbant dressing 30 g 3 09/19/2021 loperamide HCl (IMODIUM A-D ORAL)Indications :diarrhea Take 1 tablet by mouth daily as needed (diarrhea) Patient takes 6-8 tablets a day. 11/23/2020 octreotide (SandoSTATIN) 100 mcg/mL injection Inject 1 mL (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) under the skin every 30 (thirty) days Last dose 11/15/22 ostomy supplies misc Patient has colostomy and needs Cavilon 3M skin barrier film to manage. 20 each 6 09/21/2019 prochlorperazine (COMPAZINE) 10 mg tabletIndication s:Cancer Chemotherapy-Ind uced Nausea and Vomiting Take 1 tablet (10 mg total) by mouth every 6 (six) hours as needed for nausea 60 tablet 3 03/23/2022 simvastatin (ZOCOR) 20 mg tablet Take 1 tablet (20 mg total) by mouth nightly 0.9 % sodium chloride ([facility] sodium chloride 0.9%) injectionIndicat ions:line care Infuse 10 mL into a venous catheter once a week On saturday 4 0.9 % sodium chloride (sodium chloride 0.9%) 0.9% infusion 05/22/2023 4 ascorbic acid, vitamin C, 500 mg capsuleIndicatio ns:supplement Take 1 tablet by mouth environmental test technician before breakfast 07/04/2016 4 clotrimazole-bet amethasone (LOTRISONE) cream Apply 1 Application topically daily as needed (rash) 4 coenzyme U85-esnecqs E 100-5 mg-unit capsuleIndicatio ns:supplement Take 1 tablet by mouth environmental test technician before breakfast 4 diphenoxylate-at ropine (LOMOTIL) 2.5-0.025 mg per tabletIndication s:Chemotherapy-I nduced Diarrhea Take 1 tablet by mouth 4 [...] 4 fluticasone propionate (FLONASE) 50 mcg/actuation nasal sprayIndications :Allergic Rhinitis Administer 2 sprays into each nostril daily as needed for rhinitis or allergies 4 heparin 100 unit/mL solutionIndicati ons:Maintain Patency of Indwelling Vascular Catheter Infuse 5 mL (500 Units total) into a venous catheter once a week Fluids every -Heparin to flush 4 [facility] cabozantinib/maris cebo (2018-02-122/A02 1602) 20 mg tabletIndication s:cancer study Take 1 tablet (20 mg total) by mouth nightly Take on an empty stomach (no food for 2 hours before and 1 hour after each dose).?? Avoid Jas's Wort, grapefruit products and [place] oranges while on treatment. placed on hold 09/26/22 for covid 01/29/2022 4 levothyroxine (SYNTHROID) 88 mcg tabletIndication s:Hypothyroidism due to medication Take 1 tablet (88 mcg total) by mouth environmental test technician before breakfast 90 tablet 1 10/12/2022 4 LORazepam (ATIVAN) 0.5 mg tabletIndication s:MRI scan Take 1 tablet 1 hour prior to MRI exam, may repeat dose if needed 15 minutes prior to MRI 2 tablet 08/21/2021 4 losartan (COZAAR) 25 mg tablet Take 1 tablet every day by oral route. 07/10/2023 4 montelukast (SINGULAIR) 10 mg tablet Take 1 tablet (10 mg total) by mouth as needed (allergies) 4 olmesartan-hydro chlorothiazide (BENICAR HCT) 20-12.5 mg per tabletIndication s:hypertension Take 1 tablet by mouth every morning 05/14/2019 4 ondansetron (ZOFRAN) 8 mg tabletIndication s:Prevention of Radiation-Induce d Nausea and Vomiting Take 1 tablet (8 mg total) by mouth every 8 (eight) hours as needed for nausea or vomiting 30 tablet 3 05/28/2023 4 sodium chloride 0.9 % solutionIndicati ons:hydration Infuse 1,000 mL into a venous catheter [...] Nursing Notes * Vivian Villar RN - 09/04/2023 11:30 AM CST Pt presented to [facility] for IV hydration and potential electrolyte replacement. Mg 1.6, per Sola no replacement needed today. Pt reported nausea upon clinic arrival, Sola notified and ordered compazine per pt request. Alteplase instilled by 7CAM, removed with return of blood return after 1h dwell. Pt given 1L NS and 10mg IV compazine, tolerated well, improvement in nausea symptoms and able to tolerate PO intake. VSS. PAC heparin flushed and deaccessed per protocol. AVS given and pt verbalized understanding. D/c to home in stable condition accompanied by spouse. 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 However, RN still reviewed the fallprevention education pamphlet of Keeping You Safe: Fall Assessment and Prevention . Verbalized understanding of all discussed. Questions answered at this time. GER FIELD SALES documented in this encounter Plan of Treatment Not on file documented as of this encounter Visit Diagnoses Diagnosis Dehydration- Primary Neuroendocrine carcinoma (HCC) Other malignant neoplasm [...] Once as needed, line care, Starting on Sat09/04/23 at 1047, Flush when all medication administered and labs completed for the day.Indications:Neuroendocri ne carcinoma (HCC),Dehydration Given 09/04/2023 1:50 PM MANAGER FIELD SALES 500 Units prochlorperazine (COMPAZINE) injection 10 mg 10 mg, intravenous, Administer over 2 Minutes, Once, On Sat09/04/23 at 1145, For 1 doseIndications:Neuroendocri ne carcinoma (HCC),Dehydration Given 09/04/2023 11:34 AM MANAGER FIELD SALES 10 mg sodium chloride 0.9% bolus 1,000 mL 1,000 mL, intravenous, at 500 mL/hr, Administer over 2 Hours, Once, On Sat09/04/23 at 1120, For 1 doseIndications:Neuroendocri ne carcinoma (HCC),Dehydration New Bag 09/04/2023 11:33 AM MANAGER FIELD SALES 1,000 mL 500 mL/hr documented in this encounter Orders Medications Ordered That Brett ht Not Have Been Administered Count Last Ordered Date First Ordered Date heparin 10 unit/mL flush 30 Units 1 024 sodium chloride 0.9% flush 10 mL 1 09/04/19 24 Nursing Count Last Ordered Date First Orde red Date CENTRAL LINE DRESSING 1 09/04/2023 Appointment Requests Count Last Ordered Date Fi rst Ordered Date ONCBCN INFUSION APPT REQUEST 09/04/2023 documented in this encounter Care Teams Assessment Expert Relationship Specialty Start Date End Date Julio César Briseno MD PCP - General 10/01/16 Eren Cr MD Referring Physician Medical Oncology 11/25/18 Yohana Bowen MD Radiation Oncologist Radiation Oncology 11/25/18 Alejo Mi MD [address] [facility] [address] [place] [address] Referring Physician Nephrology 03/07/23 documented as of this encounter
--- OUTSIDE RECORDS SUMMARY | 2024-06-25 22:08 | XMS_ITS | Encounter Summary ---
Author Organization [facility] Address [address] [place] [address] Phone Care Team Providers Care Hvac Technician Name Role Phone Julio César Briseno MD Primary Care Provider [phone] Eren Cr MD Unavailable [phone] Yohana Bowen MD Unavailable [place] Ramos MD Unavailable Reason for Visit * Episode Based Medications (Routine) - Closed Specialty Diagnoses / Procedures Referred By Contac t Referred To Contact Diagnoses Neuro-endocrine carcinoma (HCC) Procedures study [id number] phase III cabozantinib Eren Cr MD [address] [place] [address] Phone: tel: fax: [facility] and [facility] [address] [facility] 7th [place] [address] Phone: tel: Referral ID Status Reason Start Date Expiration Date Visits Re quested Visits Authorized [id number] Closed 06/21/2021 06/26/2024 1 99 Encounter Details Date Type Department Care Team (Latest Contact Info) Description 09/26/2023 3:30 PM CDT Research Med Pick-Up/CTRU Publications Editor [facility] Oncology [address] [place] [address] Neuro-endocrine carcinoma (HCC) (Primary Dx) Social History [...] on file 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 Gender Identity Not on file Sexual [...] Ordered Date First Ordered Date [facility]V-[facility] cabozantinib (2018-02-122/[id number]) tablet 20 mg 1 09/26/2023 Nursing Count Last Ordered Date First Orde red Date ONCBCN PROVIDER COMMUNICATION 10 09/26/19 ONCBCN STUDY COMMUNICATION 1 09/26/2023 ONCBCN TREATMENT PARAMETERS 1 09/26/2023 Appointment Requests Count Last Ordered Date Fi rst Ordered Date ONCBCN TAKE HOME STUDY DRUG APPT 1 09/26/19 24 documented in this encounter Care Teams Hvac Technician Relationship Specialty Start Date End Date Julio César Briseno MD PCP - General 10/01/16 Eren Cr MD Referring Physician Medical Oncology 11/25/18 Yohana Bowen MD Radiation Oncologist Radiation Oncology 11/25/18 Alejo Mi MD [id number] [place] [address] Referring Physician Nephrology 03/07/23 documented as of this encounter
--- OUTSIDE RECORDS SUMMARY | 2024-06-25 22:08 | XMS_ITS | Encounter Summary ---
Author Organization [facility] Address [address] [place] [address] Phone Care Team Providers Care Polygraph Operator Name Role Phone Juilo César Briseno MD Primary Care Provider [phone] Eren Cr MD Unavailable [phone] Yohana Bowen MD Unavailable FredericAlejo Ramos MD Unavailable [phone] Reason for Visit * Reason Comments Port Draw * Episode Based Medications (Routine) - Closed Specialty Diagnoses / Procedures Referred By Contac t Referred To Contact Diagnoses Neuro-endocrine carcinoma (HCC) Procedures study [id number] phase III cabozantinib Eren Cr MD [address] [facility] [address] [place] [address] Phone: tel: fax: 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
--- OUTSIDE RECORDS SUMMARY | 2024-06-25 22:08 | XMS_ITS | Encounter Summary ---
Author Organization [facility] Healthcare Address [address] [place] [address] Care Team Providers Care Stove Mechanic Name Role Phone Julio César Briseno MD Primary Care Provider [phone] Eren Cr MD Unavailable [phone] Yohana Bowen MD Unavailable Alejo Mi MD Unavailable Encounter Details Date Type Department Care Team (Latest Contact Info) Description 09/18/2023 10:53 AM CDT - 09/18/2023 11:59 PM CDT Hospital Encounter [facility] [place] [facility] ([facility]) [address] [place] [phone] Julio César Briseno MD [address] [place] [address] Dehydration (Primary Dx); Neuroendocrine carcinoma (HCC); Malignant [...] on file Legal Sex Female 2:41 PM ARCADE ATTENDANT Gender Identity Not on file Sexual Orientation Straight 02/19/2021 9: 29 AM CDT Occupation Industry Job Start Date Job End Date retired Not on file Not on file Not on file documented as of this encounter Last Filed Vital Signs Vital Sign Reading Time Taken Comments Blood Pressure 156/60 09/18/2023 1:40 PM CDT Pulse 78 09/18/2023 10:59 AM CDT Temperature 36.6 ??C (97.8 ??F) 09/18/2023 10:59 AM C DT Respiratory Rate 18 09/18/2023 10:59 AM CDT Oxygen Saturation 97% 09/18/2023 10:59 AM CDT Inhaled Oxygen Concentration - - [...] nightly 0.9 % sodium chloride ([facility] sodium chloride 0.9%) injectionIndicati ons:line care Infuse 10 mL into a venous catheter once a week On saturday 4 0.9 % sodium chloride (sodium chloride 0.9%) 0.9% infusion 05/22/2023 4 ascorbic acid, vitamin C, 500 mg capsuleIndication s:supplement Take 1 tablet by mouth torpedo shooter before breakfast 07/04/2016 4 clotrimazole-beta methasone (LOTRISONE) cream Apply 1 Application topically daily as needed (rash) 4 coenzyme D43-dhoiyoa E 100-5 mg-unit capsuleIndication s:supplement Take 1 tablet by mouth torpedo shooter before breakfast 4 diphenoxylate-atr opine (LOMOTIL) 2.5-0.025 mg per tabletIndications :Chemotherapy-Ind uced Diarrhea Take 1 tablet by mouth 4 (four) times a day as needed for diarrhea 90 tablet 02/14/[address] (CYMBALTA) 30 mg capsule Take 1 capsule (30 mg total) by mouth daily 30 capsule 2 04/24/2019 07/09/202 4 ergocalciferol (VITAMIN D) 50,000 unit capsule [...] week Fluids every -Heparin to flush 4 INV-[facility] cabozantinib/plac abdulkadir (/[id number]) 20 mg tabletIndications :cancer study Take 1 tablet (20 mg total) by mouth nightly Take on an empty stomach (no food for 2 hours before and 1 hour after each dose).?? Avoid [place]'s Wort, grapefruit products and [place] oranges while on treatment. placed on hold [...] documented in this encounter Nursing Notes * Luc Barone RN - 09/18/2023 11:00 AM CDT Patient arrived to [facility] for IV hydration. Plan of care reviewed with patient, patient agreeable. PACaccessed with brisk blood return. Patient received 1L NS bolus. Patient tolerated infusion well. PAC flushed and instilled with heparin. Patient discharged home. AVS declined. Patient did not meet parameters for high fall risk intervention. documented in this encounter Plan of Treatment [...] Once as needed, line care, Starting on Sat09/18/23 at 1056, Flush when all medication administered and labs completed for the day.Indications:Neuroendocri ne carcinoma (HCC),Dehydration Given 09/18/2023 1:30 PM CDT 500 Units sodium chloride 0.9% bolus 1,000 mL 1,000 mL, intravenous, at 500 mL/hr, Administer over 2 Hours, Once, On Sat09/18/23 at 1130, For 1 doseIndications:Neuroendocri ne carcinoma (HCC),Dehydration New Bag 09/18/2023 11:29 AM CDT 1,000 mL 500 mL/hr documented in this encounter Orders Appointment Requests Count Last Ordered Date Fi rst Ordered Date ONCBCN INFUSION APPT REQUEST 1 09/18/2023 documented in this encounter Care Teams Stove Mechanic Relationship Specialty Start Date End Date Julio César Briseno MD PCP - General 10/01/16 Eren Cr MD Referring Physician Medical Oncology 11/25/18 Yohana Bowen MD Radiation Oncologist Radiation Oncology 11/25/18 Alejo Mi MD [address] [address] Referring Physician Nephrology 03/07/23 documented as of this encounter
--- OUTSIDE RECORDS SUMMARY | 2024-06-25 22:08 | XMS_ITS | Encounter Summary ---
Author Organization [facility] Address [address] [place] [address] Phone Care Team Providers Care Architect Intern Name Role Phone Julio César Briseno MD Primary Care Provider [phone] Eren Cr MD Unavailable [phone] Yohana Bowen MD Unavailable Alejo Mi MD Unavailable [phone] Encounter Details Date Type Department Care Team (Latest Contact Info) Description 09/04/2023 10:00 AM CIVIL ENGINEERING INTERN Clinical Support 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); Neuro-endocrine carcinoma (HCC); Colostomy complication, unspecified (HCC) Social History Tobacco Use Types Packs/Day [...] on file Legal Sex Female 2:41 PM CIVIL ENGINEERING INTERN Gender Identity Not on file Sexual Orientation Straight 02/19/2021 9: 29 AM CDT Occupation Industry Job Start Date Job End Date retired Not on file Not on file Not on file documented as of this encounter Plan of Treatment Not on file documented as of this encounter Visit Diagnoses Diagnosis Hypophosphatemia- Primary 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 Reconstitute 2 mg vial with 2.2 mL SWFI. Resulting solution is ~1 mg/mL. DO NOT SHAKE., Indications: Colorectal CancerIndications:Colorectal Cancer Given 09/04/2023 10:22 AM CIVIL ENGINEERING INTERN 1 mg documented in this encounter Orders Medications Ordered That Brett ht Not Have Been Administered Count Last Ordered Date First Ordered Date alteplase (CATHFLO ACTIVASE) injection 1 mg 1 09/04/2023 Appointment Requests Count Last Ordered Date Fi rst Ordered Date ONCBCN LAB APPOINTMENT 1 09/04/2023 documented in this encounter Care Teams Architect Intern Relationship Specialty Start Date End Date Julio César Briseno MD PCP - General 10/01/16 Eren Cr MD Referring Physician Medical Oncology 11/25/18 Yohana Bowen MD Radiation Oncologist Radiation Oncology 11/25/18 Alejo Mi MD [address] [address] Referring Physician Nephrology 03/07/23 documented as of this encounter
--- OUTSIDE RECORDS SUMMARY | 2024-06-25 22:08 | XMS_ITS | Encounter Summary ---
Author Organization [facility] Healthcare Address [address] [place] [address] Care Team Providers Care Career Consultant Name Role Phone Julio César Briseno MD Primary Care Provider [phone] Eren Cr MD Unavailable [phone] Yohana Bowen MD Unavailable Alejo Mi MD Unavailable [phone] Reason for Visit * Reason Comments OP Infusion Hydration Encounter Details Date Type Department Care Team (Latest Contact Info) Description 09/11/2023 9:00 AM MATH PROFESSOR - 09/11/2023 11:59 PM MATH PROFESSOR Hospital Encounter [facility] ([facility]) [address] [place] [id number] Dehydration (Primary Dx); Neuroendocrine carcinoma (HCC); Malignant neoplasm metastatic to liver (HCC); 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); Neuro-endocrine carcinoma (HCC); Hypophosphatemia Discharge Disposition: Discharge to home or self [...] on file Legal Sex Female 2:41 PM MATH PROFESSOR Gender Identity Not on file Sexual Orientation Straight 02/19/2021 9: 29 AM CDT Occupation Industry Job Start Date Job End Date retired Not on file Not on file Not on file documented as of this encounter Last Filed Vital Signs Vital Sign Reading Time Taken Comments Blood Pressure 157/65 09/11/2023 9:23 AM MATH PROFESSOR Pulse 71 09/11/2023 9:21 AM MATH PROFESSOR Temperature 36.4 ??C (97.5 ??F) 09/11/2023 9:21 AM CS T Respiratory Rate 18 09/11/2023 9:21 AM MATH PROFESSOR Oxygen Saturation 99% 09/11/2023 9:21 AM MATH PROFESSOR Inhaled Oxygen Concentration - - Weight - [...] by mouth nightly 0.9 % sodium chloride ([facility] sodium chloride 0.9%) injectionIndicati ons:line care Infuse 10 mL into a venous catheter once a week On saturday 4 0.9 % sodium chloride (sodium chloride 0.9%) 0.9% infusion 05/22/2023 4 ascorbic acid, vitamin C, 500 mg capsuleIndication s:supplement Take 1 tablet by mouth call center trainer before breakfast 07/04/2016 4 clotrimazole-beta methasone (LOTRISONE) cream Apply 1 Application topically daily as needed (rash) 4 coenzyme [id number] E 100-5 mg-unit capsuleIndication s:supplement Take 1 tablet by mouth call center trainer before breakfast 4 diphenoxylate-atr opine (LOMOTIL) 2.5-0.025 [...] week Fluids every -Heparin to flush 4 INV-[facility] cabozantinib/plac abdulkadir (2018-02-122/A021 [id number]) 20 mg tabletIndications :cancer study Take 1 tablet (20 mg total) by mouth nightly Take on an empty stomach (no food for 2 hours before and 1 hour after each dose).?? Avoid Jas's Wort, grapefruit products and [place] oranges while on treatment. placed on hold 09/26/22 for covid 01/29/2022 4 levothyroxine (SYNTHROID) 100 mcg tabletIndications :Hypothyroidism, unspecified type Take 1 tablet (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) by mouth daily 90 tablet 09/12/2023 4 levothyroxine (SYNTHROID) 100 mcg tabletIndications :Hypothyroidism, unspecified type Take 1 tablet (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) by mouth daily 90 tablet 09/12/2023 4 levothyroxine (SYNTHROID) 88 mcg tabletIndications :Hypothyroidism due to medication Take 1 tablet (88 mcg total) by mouth call center trainer before breakfast 90 tablet 1 10/12/2022 4 LORazepam (ATIVAN) 0.5 mg tabletIndications :MRI [...] documented in this encounter Nursing Notes * Kathy Swift RN - 09/11/2023 9:00 AM CST Patient presents to [facility] for Hydration. Vital signs stable. Patient verbalized understanding of today's treatment plan. Reviewed and educated patient on fall prevention. 1L NS administered as ordered.Patient reports nausea during infusion, Zofran administered as ordered. Port flushed with NS and Heparin per protocol. Patient discharged home in stable condition. 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) Other malignant neoplasm of unspecified site Hypophosphatemia Disorders of phosphorus metabolism documented in this encounter Administered Medications Inactive Administered Medications - up to 3 most recent administrations Medication Order MAR Action Action Date Dose Rate Site ondansetron (ZOFRAN) injection 8 mg 8 mg, intravenous, Administer over 2 Minutes, Once as needed, nausea, vomiting, Starting on Sat09/11/23 at 1034, For 1 doseIndications:Hypophospha temia Given 09/11/2023 10:36 AM MATH PROFESSOR 8 mg sodium chloride 0.9% bolus 1,000 mL 1,000 mL, intravenous, at 500 mL/hr, Administer over 2 Hours, Once, On Sat09/11/23 at 0950, For 1 doseIndications:Neuroendocr ine carcinoma (HCC),Dehydration New Bag 09/11/2023 9:29 AM MATH PROFESSOR 1,000 mL 666 mL/hr documented in this encounter Orders Medications Ordered That Brett ht Not Have Been Administered Count Last Ordered Date First Ordered Date heparin 100 unit/mL injection 500 Units 1 0 09/11/2023 Appointment Requests Count Last Ordered Date Fi rst Ordered Date ONCBCN INFUSION APPT REQUEST 1 09/11/2023 documented in this encounter Care Teams Career Consultant Relationship Specialty Start Date End Date Julio César Briseno MD PCP - General 10/01/16 Eren Cr MD Referring Physician Medical Oncology 11/25/18 Yohana Bowen MD Radiation Oncologist Radiation Oncology 11/25/18 Alejo Mi MD [address] [address] Referring Physician Nephrology 03/07/23 documented as of this encounter
--- OUTSIDE RECORDS SUMMARY | 2024-06-25 22:08 | XMS_ITS | Encounter Summary ---
Author Organization [facility] Address [address] [place] [address] Phone Care Team Providers Care Search Engine Optimization Consultant Name Role Phone Julio César Briseno MD Primary Care Provider Eren Cr MD Unavailable [phone] Yohana Bowen MD Unavailable Alejo Mi MD Unavailable [phone] Encounter Details Date Type Department Care Team (Late st Contact Info) Description 10/16/2023 3:[address] [facility] Oncology [address] [facility] Advanced Medicine 7th [place] [address] Dehydration (Primary Dx); Neuroendocrine carcinoma (HCC); Malignant [...] on file Legal Sex Female 2:41 PM NP Gender Identity Not on file Sexual Orientation Straight 02/19/2021 9: 29 AM CDT Occupation Industry Job Start Date Job End Date retired Not on file Not on file Not on file documented as of this encounter Last Filed Vital Signs Vital Sign Reading Time Taken Comments Blood Pressure 143/77 10/16/2023 3:23 PM CDT Pulse 75 10/16/2023 3:23 PM CDT Temperature 36.4 ??C (97.5 ??F) 10/16/2023 3:23 PM CD T Respiratory Rate - - Oxygen Saturation 98% 10/16/2023 3:23 PM CDT Inhaled Oxygen Concentration - - Weight 76.4 kg (168 lb 6.4 oz) 10/16/2023 3:23 P M CDT Height - - Body Mass Index 29.83 09/06/2023 2:48 PM NP documented in this encounter Nursing Notes * Callie Yepez RN - 10/16/2023 3:00 PM CDT Pt presents for fluids, port accessed in the pod and 1 L NS infused over 2 hours, pt tolerated treatment well, port needle removed and band aid paced. Denies further questions or concerns at this time. Pt D/C in stable condition with family member. documented in this encounter Plan of Treatment [...] MAR Action Action Date Dose Rate Site sodium chloride 0.9% bolus 1,000 mL 1,000 mL, intravenous, at 500 mL/hr, Administer over 2 Hours, Once, On Sat10/16/23 at 1615, For 1 doseIndications:Neuroendocr ine carcinoma (HCC),Dehydration New Bag 10/16/2023 3:32 PM CDT 1,000 mL 500 mL/hr documented in this encounter Orders Medications Ordered That Brett ht Not Have Been Administered Count Last Ordered Date First Ordered Date sodium chloride 0.9% bolus 1,000 mL 1 10/15 Appointment Requests Count Last Ordered Date Fi rst Ordered Date ONCBCN INFUSION APPT REQUEST 1 10/16/2023 documented in this encounter Care Teams Search Engine Optimization Consultant Relationship Specialty Start Date End Date Julio César Briseno MD PCP - General 10/01/16 Eren Cr MD Referring Physician Medical Oncology 11/25/18 Yohana Bowen MD Radiation Oncologist Radiation Oncology 11/25/18 Alejo Mi MD [address] [address] Referring Physician Nephrology 03/07/23 documented as of this encounter
--- OUTSIDE RECORDS SUMMARY | 2024-06-25 22:08 | XMS_ITS | Encounter Summary ---
Author Organization [facility] Address [address] [place] [address] Phone Care Team Providers Care Alcohol Still Operator Name Role Phone Julio César Briseno MD Primary Care Provider [phone] Eren Cr MD Unavailable [phone] Yohana Bowen MD Unavailable MapletonAlejo Ramos MD Unavailable [phone] Reason for Visit * Reason Comments OP Infusion * Episode Based Medications (Routine) - Authorized Specialty Diagnoses / Procedures Referred By Contac t Referred To Contact Diagnoses Hypomagnesemia Eren Cr MD [address] [facility] [address] [place] [address] Phone: tel: fax: [facility] [address] [facility] Advanced Medicine 7th [place] [address] Phone: tel: Referral ID Status Reason Start Date Expiration Date V isits Requested Visits Authorized [id number] Authorized 11/13/2021 04/01/2025 1 30 Encounter Details Date Type Department Care Team (Late st Contact Info) Description 08/27/2023 11:00 AM TOXICOLOGY TEACHER Infusion [facility] Oncology [address] [place] [address] Hypomagnesemia (Primary Dx); Neuroendocrine carcinoma (HCC); Dehydration; Neuro-endocrine carcinoma (HCC); Malignant neoplasm metastatic to [...] on file Legal Sex Female 2:41 PM TOXICOLOGY TEACHER Gender Identity Not on file Sexual Orientation Straight 02/19/2021 9: 29 AM CDT Occupation Industry Job Start Date Job End Date retired Not on file Not on file Not on file documented as of this encounter Nursing Notes * Yvonne Lawrence RN - 08/27/2023 11:00 AM CST Oncology Nursing Note [facility] ONCOLOGY Lashirley Chung is a 72 y.o. female who presents for supportive IVF's, anti emetics, replacement Magnesium, Sandostatin injection. Pre-treatment Nursing Assessment Additional Notes: Xgeva held d/t hypophastemia. BP: 143/78 Temp: 36.8 ??C (98.2 ??F) Temp src: Oral Pulse: 77 Resp: 16 SpO2: 99 % Weight: 78 kg (172 lb) Treatment Patient: met treatment parameters Pre blood return: Mary Chung tolerated treatment well. Patient was frequently observed and monitored throughout the administration of their treatment. Additional Notes: Pt states N&V resolved at eoi. Post blood return: Brisk IV access post infusion: NS Patient Education Treatment Education: Information/teaching given to patient including symptom management Response: Verbalizes understanding Discharge Plan Discharge instructions given to patient. Future appointments given and reviewed with treatment plan. Discharge Mode: Ambulatory Accompanied by: Spouse Discharged To: Home in stable condition. 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 For IM intragluteal administration only- alternate gluteal sites. 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) Given 08/27/2023 1:42 PM TOXICOLOGY TEACHER 30 mg Left Dorsogluteal/B uttock prochlorperazine (COMPAZINE) injection 10 mg 10 mg, intravenous, Administer over 2 Minutes, Once, On Sat08/27/23 at 1145, For 1 doseIndications:Neuroend ocrine carcinoma (HCC),Dehydration Given 08/27/2023 11:28 AM TOXICOLOGY TEACHER 10 mg documented in this encounter Orders Medications Ordered That Brett ht Not Have Been Administered Count Last Ordered Date First Ordered Date denosumab (XGEVA) subcutaneo us syringe 120 mg 1 08/27/2023 Nursing Count Last Ordered Date First Orde red Date ONCBCN NURSING COMMUNICATION [id number] 1 08/27 ONCBCN NURSING COMMUNICATION [id number] 1 0 08/27/2023 PHYSICIAN COMMUNICATION ORDER 1 08/27/2023 Appointment Requests Count Last Ordered Date Fi rst Ordered Date INFUSION APPT REQUEST 120 MIN 1 08/27/2023 ONCBCN INFUSION APPT REQUEST 1 08/27/2023 documented in this encounter Care Teams Alcohol Still Operator Relationship Specialty Start Date End Date Julio César Briseno MD PCP - General 10/01/16 Eren Cr MD Referring Physician Medical Oncology 11/25/18 Yohana Bowen MD Radiation Oncologist Radiation Oncology 11/25/18 Alejo Mi MD [address] [address] Referring Physician Nephrology 03/07/23 documented as of this encounter
--- OUTSIDE RECORDS SUMMARY | 2024-06-25 22:08 | XMS_ITS | Encounter Summary ---
Author Organization [facility] Address [address] [place] [address] Phone Care Team Providers Care Lodging House Keeper Name Role Phone Julio César Briseno MD Primary Care Provider [phone] Eren Cr MD Unavailable Yohana Bowen MD Unavailable Alejo Mi MD Unavailable [phone] Encounter Details Date Type Department Care Team (Late st Contact Info) Description 09/30/[address] 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); Dehydration Social History Tobacco Use Types Packs/Day [...] on file Legal Sex Female 2:41 PM RN AMBULATORY Gender Identity Not on file Sexual Orientation [...] neoplasm metastatic to bone (CMS/HCC) (HCC) Dehydration documented in this encounter Orders Appointment Requests Count Last Ordered Date Fi rst Ordered Date ONCBCN INFUSION APPT REQUEST 1 09/30/2023 documented in this encounter Care Teams Lodging House Keeper Relationship Specialty Start Date End Date Julio César Briseno MD PCP - General 10/01/16 Eren Cr MD Referring Physician Medical Oncology 11/25/18 Yohana Bowen MD Radiation Oncologist Radiation Oncology 11/25/18 Alejo Mi MD [address] [address] Referring Physician Nephrology 03/07/23 documented as of this encounter
--- OUTSIDE RECORDS SUMMARY | 2024-06-25 22:08 | XMS_ITS | Encounter Summary ---
Author Organization [facility] Address [address] [place] [address] Phone Care Team Providers Care Director Customer Name Role Phone Julio César Briseno MD Primary Care Provider Eren Cr MD Unavailable [phone] Yohana Bowen MD Unavailable Alejo Mi MD Unavailable [phone] Encounter Details Date Type Department Care Team (Late st Contact Info) Description 09/27/2023 Orders Only [facility] Oncology [address] [place] [address] Eren Cr MD [address] [place] [address] Neuro-endocrine carcinoma (HCC) (Primary Dx); Neuroendocrine carcinoma [...] on file Legal Sex Female 2:41 PM PLANNING RN Gender Identity Not on file Sexual Orientation [...] (HCC) documented in this encounter Care Teams Director Customer Relationship Specialty Start Date End Date Julio César Briseno MD PCP - General 10/01/16 Eren Cr MD Referring Physician Medical Oncology 11/25/18 Yohana Bowen MD Radiation Oncologist Radiation Oncology 11/25/18 Alejo Mi MD [address] [place] [address] Referring Physician Nephrology 03/07/23 documented as of this encounter
--- OUTSIDE RECORDS SUMMARY | 2024-06-25 22:08 | XMS_ITS | Encounter Summary ---
Author Organization [facility] Address [address] [place] [address] Phone Care Team Providers Care Pie Maker Name Role Phone Julio César Briseno MD Primary Care Provider [phone] Eren Cr MD Unavailable [phone] Yohana Bowen MD Unavailable Alejo Mi MD Unavailable [phone] Encounter Details Date Type Department Care Team (Late st Contact Info) Description 08/28/2023 Orders Only [facility] Oncology [address] [place] [address] Eren Cr MD [address] [place] [address] Hypophosphatemia Social History Tobacco Use Types Packs/Day [...] on file 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 Gender Identity Not on file Sexual Orientation Straight 02/19/2021 9: 29 AM CDT Occupation Industry Job Start Date Job End Date retired Not on file Not on file Not on file documented as of this encounter Ordered Prescriptions Prescription Sig Dispense Quantity Refills Last Filled Start Date End Date sodium phosphate - potassium phosphate (Y-Fkoz-IfzlpoE) 250 mg tabletIndications: Hypophosphatemia Take 1 tablet (250 mg total) by mouth 2 (two) times a day for 3 days 6 tablet 08/28/2023 08/31/2023 documented in this encounter Plan of Treatment Not on file documented as of this encounter Visit Diagnoses Diagnosis Hypophosphatemia Disorders of phosphorus metabolism documented in this encounter Discontinued Medications Medication Sig Discontinue Reason Start Date End Da te sodium phosphate - potassium phosphate (V-Ctyr-HhumfnE) 250 mg tabletIndications:Hypoph osphatemia Take 1 tablet (250 mg total) by mouth 2 (two) times a day for 3 days Reorder 08/27/2023 08/28/2023 documented as of this encounter Care Teams Pie Maker Relationship Specialty Start Date End Date Julio César Briseno MD PCP - General 10/01/16 Eren Cr MD Referring Physician Medical Oncology 11/25/18 Yohana Bowen MD Radiation Oncologist Radiation Oncology 11/25/18 Alejo Mi MD [address] [place] [address] Referring Physician Nephrology 03/07/23 documented as of this encounter
--- OUTSIDE RECORDS SUMMARY | 2024-06-25 22:08 | XMS_ITS | Encounter Summary ---
Author Organization [facility] Address [address] [place] [address] Phone Care Team Providers Care Lacrosse Coach Name Role Phone Julio César Briseno MD Primary Care Provider [phone] Eren Cr MD Unavailable [phone] Yohana Bowen MD Unavailable Alejo Mi MD Unavailable [phone] Encounter Details Date Type Department Care Team (Late st Contact Info) Description 08/27/2023 Orders Only [facility] Oncology [address] [place] [address] Eren Cr MD [address] [place] [address] Social History Tobacco Use Types Packs/Day Years [...] on file 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 Gender Identity Not on file Sexual Orientation Straight 02/19/2021 9: 29 AM CDT Occupation Industry Job Start Date Job End Date retired Not on file Not on file Not on file documented as of this encounter Plan of Treatment Not on file documented as of this encounter Visit Diagnoses Not on filedocumented in this encounter Care Teams Lacrosse Coach Relationship Specialty Start Date End Date Julio César Briseno MD PCP - General 10/01/16 Eren Cr MD Referring Physician Medical Oncology 11/25/18 Yohana Bowen MD Radiation Oncologist Radiation Oncology 11/25/18 Alejo Mi MD [address] [place] [address] Referring Physician Nephrology 03/07/23 documented as of this encounter
--- OUTSIDE RECORDS SUMMARY | 2024-06-25 22:08 | XMS_ITS | Encounter Summary ---
Author Organization [facility] Address [address] [place] [address] Phone Care Team Providers Care Experimental Mechanic Name Role Phone Julio César Briseno MD Primary Care Provider Eren Cr MD Unavailable [phone] Yohana Bowen MD Unavailable Alejo Mi MD Unavailable [phone] Encounter Details Date Type Department Care Team (Late st Contact Info) Description 08/27/2023 Orders Only [facility] Oncology [address] [place] [address] Eren Cr MD [address] [place] [address] Neuroendocrine carcinoma (HCC) (Primary Dx); Hypomagnesemia Social History Tobacco Use Types Packs/Day Years [...] on file 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 Gender Identity Not on file Sexual Orientation Straight 02/19/2021 9: 29 AM CDT Occupation Industry Job Start Date Job End Date retired Not on file Not on file Not on file documented as of this encounter Plan of Treatment Not on file documented as of this encounter Visit Diagnoses Diagnosis Neuroendocrine carcinoma (HCC)- Primary Other malignant neoplasm of unspecified site Hypomagnesemia Disorders of magnesium metabolism documented in this encounter Orders Appointment Requests Count Last Ordered Date Fi rst Ordered Date ONCBCN INFUSION APPT REQUEST 1 08/27/2023 documented in this encounter Care Teams Experimental Mechanic Relationship Specialty Start Date End Date Julio César Briseno MD PCP - General 10/01/16 Eren Cr MD Referring Physician Medical Oncology 11/25/18 Yohana Bowen MD Radiation Oncologist Radiation Oncology 11/25/18 VirginiaAlejo Waggoner MD [address] [place] [address] Referring Physician Nephrology 03/07/23 documented as of this encounter
--- OUTSIDE RECORDS SUMMARY | 2024-06-25 22:08 | XMS_ITS | Encounter Summary ---
Author Organization [facility] Address [address] [place] [address] Phone Care Team Providers Care Chair Spring Assembler Name Role Phone Julio César Briseno MD Primary Care Provider Eren Cr MD Unavailable [phone] Yohana Bowen MD Unavailable HammondAlejo Waggoner MD Unavailable [phone] Encounter Details Date Type Department Care Team (Latest Contact Info) Description 09/06/2023 3:00 PM BATTERY TESTER Office Visit [facility] Endocrinology Metabolism and Lipid [address] [facility] Advanced Medicine 13th [place] [address] [place] [phone] Leila Gaytan MD [address] [place], [place] [id number] Hypothyroidism, unspecified type (Primary Dx); High risk medication use; Neuro-endocrine carcinoma (HCC) Social History Tobacco Use [...] on file Legal Sex Female 2:41 PM BATTERY TESTER Gender Identity Not on file Sexual Orientation Straight 02/19/2021 9: 29 AM CDT Occupation Industry Job Start Date Job End Date retired Not on file Not on file Not on file documented as of this encounter Last Filed Vital Signs Vital Sign Reading Time Taken Comments Blood Pressure 155/82 09/06/2023 2:48 PM BATTERY TESTER Pulse 74 09/06/2023 2:48 PM BATTERY TESTER Temperature 36.4 ??C (97.6 ??F) 09/06/2023 2:48 PM CS T Respiratory Rate - - Oxygen Saturation - - Inhaled Oxygen Concentration - - Weight 77.4 kg (170 lb 9.6 oz) 09/06/2023 2:48 P M BATTERY TESTER Height 160 cm (5' 3 ) 09/06/2023 2:48 PM BATTERY TESTER Body Mass Index 30.22 09/06/2023 2:48 PM BATTERY TESTER documented in this encounter Patient Instructions * Patient Instructions* Leila Gaytan MD - 09/06/2023 3:00 PM BATTERY TESTER - get labs done around 8am ERY TESTER documented in this encounter Ordered Prescriptions Prescription Sig Dispense Quantity Refills Last Filled Start Date End Date levothyroxine (SYNTHROID) 100 mcg tabletIndications: Hypothyroidism, unspecified type Take 1 tablet (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) by mouth daily 90 tablet 09/12/2023 11/28/2023 levothyroxine (SYNTHROID) 100 mcg tabletIndications: Hypothyroidism, unspecified type Take 1 tablet (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) by mouth daily 90 tablet 09/12/2023 09/12/2023 documented in this encounter Progress Notes * Leila Gayatn MD - 09/06/2023 3:00 PM CST Images from the original note were not included. [facility] Patient: La Chung, 72 y.o. female (: 1950) PCP: Julio César Briseno MD (Referring: Julio César Briseno MD) Visit Date: 09/06/2023 La Chung was seen for follow up of hypothyroidism. Accompanied by daughter. HPI Initial history: Dr. Cr referred patient for management of elevated TSH. 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 Patient on Cabozantinib and Octreotide. Cabozantinib started in 2021, later developed hypothyroidism. TSH was elevated at last visit as she was having trouble remembering to take the levothyroxine. Update: Since last visit, she has worked on leaving her thyroid medication by the bedside. She is now taking it consistently before breakfast. Her TSH had normalized after last visit but repeat from 06/2023 was elevated at 5.88. Her recent scans show stable disease. She remains on Cabozantinib. History Past medical history, past surgical history, [...] Taking? Authorizing Provider 0.9 % sodium chloride ([facility] sodium chloride 0.9%) injection Infuse 10 mL into a venous catheter once a week On saturday Yes Levon eKe MD ascorbic acid, vitamin C, 500 mg capsule Take 1 tablet by mouth slate cutter before breakfast 07/04/16 Yes Levon Kee MD cholecalciferol (VITAMIN D-3) 1,000 unit Take 1 tablet/capsule (1,000 Units total) by mouth daily Patient taking differently: Take 1 tablet/capsule (1,000 Units total) by mouth every morning 11/16/22 11/16/23 Yes Alejo Mi MD clotrimazole-betamethasone (LOTRISONE) cream Apply 1 Application topically daily as needed (rash) Yes Levon Kee MD coenzyme [id number] 100-5 mg-unit capsule Take 1 tablet by mouth slate cutter before breakfast Yes Levon Kee MD denosumab [...] -Heparin to flush Yes Levon Kee MD [facility] cabozantinib/placebo (/[id number]) 20 mg tablet Take 1 tablet (20 mg total) bymouth nightly Take on an empty stomach (no food for 2 hours before and 1 hour after each dose). Avoid Elsberry's Wort, grapefruit products and [place] oranges while on treatment. placed on hold 09/26/22 for covid 01/29/22 Yes Eren Cr MD levothyroxine (SYNTHROID) 88 mcg tablet Take 1 tablet (88 mcg total) by mouth slate cutter before breakfast Patient taking differently: Take 1 tablet (88 mcg total) by mouth slate cutter before breakfast 10/12/22 Yes Eren Cr MD [...] mouth daily as needed (diarrhea) 11/23/20 Yes Levon Kee MD LORazepam (ATIVAN) 0.5 mg tablet Take [...] mg total) by mouth as needed (allergies) YesProLevon barrios MD octreotide (SandoSTATIN) 100 mcg/mL injection Inject 1 mL (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) under the skin every 30 (thirty) days Last dose 11/15/22 Yes Levon Kee MD olmesartan-hydrochlorothiazide (BENICAR HCT) 20-12.5 mg per tablet Take 1 tablet by mouth every morning 05/14/19 Yes Levon Kee MD ondansetron (ZOFRAN) 8 mg tablet Take 1 tablet (8 mg total) by mouth every 8 (eight) hours as needed for nausea or vomiting 08/17/22 Yes Eren Cr MD ondansetron ODT (ZOFRAN-ODT) 8 mg disintegrating tablet Take 1 tablet (8 mg total) by mouth every 8(eight) hours as needed for nausea or vomiting 10/18/22 Yes Eren Cr MD ostomy supplies [facility] Patient has colostomy and needs Cavilon 3M skin barrier film to manage. 09/21/19 Yes Greyson Reeves MD simvastatin (ZOCOR) 20 mg tablet Take 1 tablet (20 mg total) by mouth nightly Yes Levon Kee MD sodium chloride 0.9 % solution Infuse 1,000 mL into a venous catheter once a week Patient to [id number] of Normal Saline via CADD Coreas pump [...] Patient not taking: Reported on 03/06/2023 07/27/22 Lveon Kee MD ciprofloxacin-dexAMETHasone (CIPRODEX) otic suspension Administer 4 drops into the right ear 2 (two) times a day Begin 1 week post op 02/05/23 Nasim Rojas MD HYDROcodone-acetaminophen ([place]) 5-325 mg per tablet Take 1 tablet [...] negative. Vitals & Physical Exam Blood pressure 155/82, pulse 74, temperature 36.4 ??C (97.6 ??F), height 160 cm (5' 3 ), weight 77.4 kg (170 lb 9.6 oz). Estimated body mass index is 30.22 kg/m?? as calculated from the following: Height as of this encounter: 160 cm (5' 3 ). Weight as of this encounter: 77.4 kg (170 lb 9.6 oz). Physical exam: General: well nourished, cooperative, no apparent distress. HEENT: PERRL, EOMI, no proptosis/exophthalmos/lid lag, oral mucosa moist. Neck: supple, no LAD, no thyromegaly/nodules/bruit. Lungs: CTA bilaterally, on room air, normal RR. Heart: RRR, no murmurs. Abdomen: soft, non-tender, non-distended, no masses, normal BS. Extremities: no peripheral edema, no cyanosis. Skin: warm, dry, no rashes. Neuro: alert, speech normal, ambulatory. Data Medications, labs, imaging, and diagnostics independently reviewed in Epic and commented on below. Allergies: Morphine, Ezetimibe-simvastatin, and Ramipril Medications Current Outpatient Medications on File Prior to Visit Medication Sig 0.9 % sodium chloride ([facility] sodium chloride 0.9%) injection Infuse 10 mL into a venous catheter once a week On saturday 0.9 % sodium chloride (sodium chloride 0.9%) 0.9% infusion ascorbic acid, vitamin C, 500 mg capsule Take 1 tablet by mouth slate cutter before breakfast cholecalciferol (VITAMIN D-3) 1,000 unit Take 1 tablet/capsule (1,000 Units total) by mouth daily (Patient taking differently: Take 1 tablet/capsule (1,000 Units total) by mouth every morning) clotrimazole-betamethasone (LOTRISONE) cream Apply 1 Application topically daily as needed (rash) coenzyme [id number] 100-5 mg-unit capsule Take 1 tablet by mouth slate cutter before breakfast denosumab (Xgeva) 120 mg/1.7 mL (70 mg/mL) injection Inject 1.7 mL (120 mg total) under the skin every 28 (twenty-eight) days diphenoxylate-atropine (LOMOTIL) 2.5-0.025 mg per tablet Take 1 tablet by mouth 4 (four) times a day as needed for diarrhea DULoxetine DR (CYMBALTA) 30 mg capsule Take 1 capsule (30 mg total) by mouth daily (Patient taking differently: Take 1 capsule (30 mg total) by mouth every morning) fluticasone propionate (FLONASE) 50 mcg/actuation nasal spray Administer 2 sprays into each nostrildaily as needed for rhinitis or allergies heparin 100 unit/mL solution Infuse 5 mL (500 Units total) into a venous catheter once a week Fluids every -Heparin to flush [facility] cabozantinib/placebo (/[id number]) 20 mg tablet Take 1 tablet (20 mg total) byaruth nightly Take on an empty stomach (no food for 2 hours before and 1 hour after each dose). Avoid Elsberry's Wort, grapefruit products and [place] oranges while on treatment. placed on hold 09/26/22 for covid levothyroxine (SYNTHROID) 88 mcg tablet Take 1 tablet (88 mcg total) by mouth slate cutter before breakfast (Patient taking differently: Take 1 tablet (88 mcg total) by mouth slate cutter before breakfast) lidocaine-prilocaine (lidocaine-prilocaine) cream Apply topically as needed [...] in, and cover with non absorbant dressing) loperamide HCl (IMODIUM A-D ORAL) Take 1 tablet by mouth daily as needed (diarrhea) LORazepam (ATIVAN) 0.5 mg tablet Take 1 tablet 1 hour prior to MRI exam, may repeat dose if needed 15 minutes prior to MRI (Patient taking differently: Take 1 tablet (0.5 mg total) by mouth every 8 (eight) hours as needed for anxiety (MRI) Take 1 tablet 1 hour prior to MRI exam, may repeat dose if needed 15 minutes prior to MRI) losartan (COZAAR) 25 mg tablet Take 1 tablet every day by oral route. montelukast (SINGULAIR) 10 mg tablet Take 1 tablet (10 mg total) by mouth as needed (allergies) octreotide (SandoSTATIN) 100 mcg/mL injection Inject 1 mL (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) under the skin every 30 (thirty) days Last dose 11/15/22 olmesartan-hydrochlorothiazide (BENICAR HCT) 20-12.5 mg per tablet Take 1 tablet by mouth every morning ondansetron (ZOFRAN) 8 mg tablet Take 1 tablet (8 mg total) by mouth every 8 (eight) hours as needed for nausea or vomiting ostomy supplies misc Patient has colostomy and needs Cavilon 3M skin barrier film to manage. simvastatin (ZOCOR) 20 mg tablet Take 1 tablet (20 mg total) by mouth nightly sodium chloride 0.9 % solution Infuse 1,000 mL into a venous catheter once a week Patient to [id number] of Normal Saline via CADD Coreas pump set at 300mL/Hr once weekly.- Saturday triamcinolone (KENALOG) 0.1 % ointment Apply to itchy rash on hands twice daily until improved ergocalciferol (VITAMIN D) 50,000 unit capsule Take 1 capsule (50,000 Units total) by mouth once a week prochlorperazine (COMPAZINE) 10 mg tablet Take 1 tablet (10 mg total) by mouth every 6 (six) hours as needed for nausea (Patient taking differently: Take 1 tablet (10 mg total) by mouth every 6 (six)hours as needed for nausea or vomiting) Current Facility-Administered Medications on File Prior to Visit Medication L-arginine 1.25%/L-lysine 1.25% infusion 1,000 mL No results found for: HGBA1C Lab Results Component Value Date LDLCALC 53 08/27/2023 CREATININE 1.03 09/04/2023 Lab Results Component Value Date TSH 5.88 (H) 06/27/2023 FREET4 1.41 05/02/2023 No results found for: THYROGLOBULI , THGABINT No results found for: PROLACTIN , CORTISOL , ACTH , FSH , LH , ESTRADIOL , IGF1 No results found for: TESTOSTERONE , TESTOSTFREE Lab Results Component Value Date PTH 210 (H) 10/18/2022 CALCIUM 10.5 (H) 09/04/2023 CAION 5.86 (H) 04/11/2020 PHOS 4.2 09/04/2023 Lab Results Component Value Date GLUCOSE 78 09/04/2023 CALCIUM 10.5 (H) 09/04/2023 SODIUM 141 09/04/2023 POTASSIUM 4.1 09/04/2023 CO2 26 09/04/2023 CHLORIDE 108 09/04/2023 BUNSER 14 09/04/2023 CREATININE 1.03 09/04/2023 Lab Results Component Value Date ALT 22 08/27/2023 AST 31 08/27/2023 ALKPHOS 63 08/27/2023 BILITOT 0.5 08/27/2023 Lab Results Component Value Date WBC 2.6 (L) 08/27/2023 HGB 10.7 (L) 08/27/2023 HCT 33.4 (L) 08/27/2023 MCV 99.1 (H) 08/27/2023 LABPLAT 76 (L) 08/27/[address] chest abdomen pelvis with contrast [...] M.D. 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 Discussed that generally, eye involvement is seen in Grave's disease with hyperthyroidism. Eye puffiness can be seen more severe cases ofhypothyroidism but her last TSH was around 8. - TSI<1.0, TPO <30 - Repeat TSH 4.79 was and FT4 1.38. - Discussed results with patient. increased levothyroxine to 100mcg daily. She gets labs with oncology at the end of every month. Will follow up 10/2023s labs. #High risk medication use From an endocrine perspective, Cabozantinib can be associated with hypercalcemia and adrenal insuffiencey. AI s usually seen when used in combination with Nivolumab which she is not on. - her calcium on prior BMPs has been largely normal. - No baseline ACTH and cortisol int he chart. Checked for reference. She does not have symptoms of AI at this time. All of the patient's questions were answered. The patient is in agreement with the proposed plan of care. Patient seen and plan discussed with Dr. Monson. Leila Gaytan MD Cosigned by Billie Monson MD at 09/12/2023 4:37 PM BATTERY TESTER ERY TESTER ERY TESTER Associated attestation - Billie Monson MD - 09/12/2023 4:37 PM BATTERY TESTER I have seen and examined the patient. I agree with the findings and plan of care as documented in the resident/fellow's note. documented in this encounter Miscellaneous Notes * Addendum Note - Billie Monson MD - 09/06/2023 3:00 PM CSTAddended by: BILLIE MONSON on: 09/12/2023 04:38 PM Modules accepted: Level of Service ERY TESTER documented in this encounter Plan of Treatment Not on file documented as of this encounter Results * (ABNORMAL) TSH (09/11/2023 9:02 AM BATTERY TESTER) Thyroid Stimulating Hormone 4.79(H) 0.30 - 4.20 mcIUnit/mL Blood 09/11/2023 9:02 AM BATTERY TESTER 09/11/2023 9:37 AM BATTERY TESTER Leila Gaytan MD LAB BLOOD ORDERABLES Final R esult Performing Organization Address City/[facility] [address]/[facility] Co de Phone Number [facility] [place] [address] * T4, free (09/11/2023 9:02 AM BATTERY TESTER) [facility] Free T4 1.38 0.90 - 1.70 ng/dL Blood 09/11/2023 9:02 AM BATTERY TESTER 09/11/2023 9:37 AM BATTERY TESTER Leila Gaytan MD LAB BLOOD ORDERABLES Final R esult Performing Organization Address City/[facility] [address]/ZIP Co de Phone Number [facility] [place] [address] * Cortisol (09/11/2023 9:02 AM BATTERY TESTER) Cortisol 10.0 4.8 - 19.5 mcg/dL Comment: Interpretive Data: Morning hours 6-10 a.m. ??4.8 - 19.5 mcg/dL Afternoon hours 4-8 p.m. ??2.68 - 10.5 mcg/dL This analyte undergoes marked diurnal variation. Current interpretive data was last revised 21. Blood 09/11/2023 9:02 AM BATTERY TESTER 09/11/2023 9:37 AM BATTERY TESTER Narrative [facility] - 09/11/2023 10:28 AM BATTERY TESTER 8AM cortisol us Leila Gaytan MD LAB BLOOD ORDERABLES Final R esult Performing Organization Address City/[facility] [address]/ZIP Co de Phone Number [facility] Department [place] [address] * ACTH (09/11/2023 7:44 AM BATTERY TESTER) Pathologist [facility] ACTH 25.8 7.0 - 63.0 pg/mL Blood 09/11/2023 7:44 AM BATTERY TESTER 09/11/2023 9:23 AM BATTERY TESTER Leila Gaytan MD LAB BLOOD ORDERABLES Final R esult Performing Organization Address City/[facility] [address]/[facility] Co de Phone Number [facility] Department [place] [address] documented in this encounter Visit Diagnoses Diagnosis Hypothyroidism, unspecified type- Primary High risk medication use Neuro-endocrine carcinoma (HCC) Other malignant neoplasm of unspecified site Hypothyroidism, unspecified type documented in this encounter Discontinued Medications Medication Sig Discontinue Reason Start Date End Da te levothyroxine (SYNTHROID) 88 mcg tabletIndications:Hypot hyroidism due to medication Take 1 tablet (88 mcg total) by mouth slate cutter before breakfast 10/12/2022 09/12/2023 levothyroxine (SYNTHROID) 100 mcg tabletIndications:Hypot hyroidism, unspecified type Take 1 tablet (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) by mouth daily 09/12/2023 09/12/2023 documented as of this encounter Care Teams Chair Spring Assembler Relationship Specialty Start Date End Date Julio César Briseno MD PCP - General 10/01/16 Eren Cr MD Referring Physician Medical Oncology 11/25/18 Yohana Bowen MD Radiation Oncologist Radiation Oncology 11/25/18 Alejo Mi MD [address] [address] Referring Physician Nephrology 03/07/23 documented as of this encounter
--- OUTSIDE RECORDS SUMMARY | 2024-06-25 22:08 | XMS_ITS | Encounter Summary ---
Author Organization [facility] Address [address] [place] [address] Phone Care Team Providers Care Window Framer Name Role Phone Julio César Briseno MD Primary Care Provider [phone] Eren Cr MD Unavailable [phone] Yohana Bowen MD Unavailable [place]viewAlejo Ramos MD Unavailable Reason for Visit * Episode Based Medications (Routine) - Closed Specialty Diagnoses / Procedures Referred By Contac t Referred To Contact Diagnoses Neuro-endocrine carcinoma (HCC) Procedures study [id number] phase III cabozantinib Eren Cr MD [address] [place] [address] Phone: tel: fax: [facility] and [facility] [address] [facility] 7th [place] [address] Phone: tel: Referral ID Status Reason Start Date Expiration Date Visits Re quested Visits Authorized [id number] Closed 06/21/2021 06/26/2024 1 99 Encounter Details Date Type Department Care Team (Latest Contact Info) Description 08/27/2023 10:30 AM REQUISITION APPROVER Research Med Pick-Up/CTRU Fire Hydrant Operator [facility] Oncology [address] [place] [address] Neuro-endocrine carcinoma (HCC) (Primary Dx) Social History [...] on file Legal Sex Female 2:41 PM REQUISITION APPROVER Gender Identity Not on file Sexual Orientation [...] Ordered Date First Ordered Date [id number] cabozantinib (2018-02-122/[id number]) tablet 20 mg 1 08/27/2023 Nursing Count Last Ordered Date First Orde red Date ONCBCN STUDY COMMUNICATION 1 08/27/2023 ONCBCN TREATMENT PARAMETERS 1 08/27/2023 Appointment Requests Count Last Ordered Date Fi rst Ordered Date ONCBCN TAKE HOME STUDY DRUG APPT 1 08/27/19 24 documented in this encounter Care Teams Window Framer Relationship Specialty Start Date End Date Julio César Briseno MD PCP - General 10/01/16 Eren Cr MD Referring Physician Medical Oncology 11/25/18 Yohana Bowen MD Radiation Oncologist Radiation Oncology 11/25/18 Alejo Mi MD [address] [address] Referring Physician Nephrology 03/07/23 documented as of this encounter
--- OUTSIDE RECORDS SUMMARY | 2024-06-25 22:08 | XMS_ITS | Encounter Summary ---
Author Organization [facility] [employer] [facility] Address [address] [place] [address] Phone Care Team Providers Care Mail Manager Name Role Phone Julio César Briseno MD Primary Care Provider Eren Cr MD Unavailable [phone] Yohana Bowen MD Unavailable Alejo Mi MD Unavailable [phone] Encounter Details Date Type Department Care Team (Late st Contact Info) Description 09/11/2023 8:15 AM 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 Clinical Support [facility] Oncology [facility] 7th [place] [address] [place] [address] Social History Tobacco Use Types Packs/Day Years [...] on file Legal Sex Female 2:41 PM 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 Gender Identity Not on file Sexual Orientation Straight 02/19/2021 9: 29 AM CDT Occupation Industry Job Start Date Job End Date retired Not on file Not on file Not on file documented as of this encounter Plan of Treatment Not on file documented as of this encounter Visit Diagnoses Not on filedocumented in this encounter Care Teams Mail Manager Relationship Specialty Start Date End Date Julio César Briseno MD PCP - General 10/01/16 Eren Cr MD Referring Physician Medical Oncology 11/25/18 Yohana Bowen MD Radiation Oncologist Radiation Oncology 11/25/18 Alejo Mi MD [address] [address] Referring Physician Nephrology 03/07/23 documented as of this encounter
--- OUTSIDE RECORDS SUMMARY | 2024-06-25 22:08 | XMS_ITS | Encounter Summary ---
Author Organization [facility] Address [address] [place] [address] Phone Care Team Providers Care Sound Effects Person Name Role Phone Julio César Briseno MD Primary Care Provider [phone] Eren Cr MD Unavailable [phone] Yohana Bowen MD Unavailable [place]Alejo Ramos MD Unavailable [phone] Reason for Visit * Reason Comments Injections * Episode Based Medications (Routine) - Authorized Specialty Diagnoses / Procedures Referred By Contac t Referred To Contact Oncology Diagnoses 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) Procedures [place] OCTREOTIDE INJECTION, DEPOT Octreotide 28 Day Cycles - Carcinoid Eren Cr MD [address] [facility] [address] [place] [address] Phone: tel: fax: [address] [address] Phone: tel: fax: Referral ID Status Reason Start Date Expiration Date V isits Requested Visits Authorized [id number] Authorized 11/28/2017 02/05/2025 1 150 Encounter Details Date Type Department Care Team (Late st Contact Info) Description 08/27/2023 11:[address] [facility] Infusion [facility] Oncology [address] [place] [address] Neuroendocrine carcinoma (HCC); Malignant neoplasm metastatic to [...] on file Legal Sex Female 2:[address] [employer] Gender Identity Not on file Sexual Orientation [...] Ordered Date ONCBCN INJECTION APPOINTMENT REQUEST 1 08/09 documented in this encounter Care Teams Sound Effects Person Relationship Specialty Start Date End Date Julio César Briseno MD PCP - General 10/01/16 Eren Cr MD Referring Physician Medical Oncology 11/25/18 Yohana Bowen MD Radiation Oncologist Radiation Oncology 11/25/18 Alejo Mi MD [address] [address] Referring Physician Nephrology 03/07/23 documented as of this encounter
--- OUTSIDE RECORDS SUMMARY | 2024-06-25 22:08 | XMS_ITS | Encounter Summary ---
Author Organization [facility] Healthcare Address [address] [place] [address] Care Team Providers Care Commercial Lines Manager Name Role Phone Julio César Briseno MD Primary Care Provider [phone] Eren Cr MD Unavailable [phone] Yohana Bowen MD Unavailable Alejo Mi MD Unavailable [phone] Reason for Visit * Reason Comments OP Infusion NS Encounter Details Date Type Department Care Team (Latest Contact Info) Description 10/02/2023 10:58 AM CDT - 10/02/2023 11:59 PM CDT Hospital Encounter [facility] [place] [facility] ([facility] [place]) [address] [place] [id number] Dehydration (Primary Dx); Neuroendocrine carcinoma (HCC); Malignant [...] on file 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 Gender Identity Not on file Sexual Orientation Straight 02/19/2021 9: 29 AM CDT Occupation Industry Job Start Date Job End Date retired Not on file Not on file Not on file documented as of this encounter Last Filed Vital Signs Vital Sign Reading Time Taken Comments Blood Pressure 149/61 10/02/2023 1:29 PM CDT Pulse 66 10/02/2023 1:29 PM CDT Temperature 36.7 ??C (98 ??F) 10/02/2023 1:29 PM CDT Respiratory Rate 18 10/02/2023 1:29 PM CDT Oxygen Saturation 98% 10/02/2023 1:29 PM CDT Inhaled Oxygen Concentration - - Weight - - Height - - Body Mass Index - - documented in this encounter Discharge Instructions * Patient Instructions* Vivian Villar, [place] - 10/02/2023 11:00 AM CDT .After 4:30 PM during the week, on weekends and holidays, call [phone] and ask to have the Supervisor Ore Dressing Physician paged for you. Saturday through Saturday, 8 AM to 4:30 PM, call [phone] [facility] Oncology Physician at [facility] and ask for a member of [...] ([facility] sodium chloride 0.9%) injectionIndicati ons:line care Infuse 10 mL into a venous catheter once a week On saturday 4 0.9 % sodium chloride (sodium chloride 0.9%) 0.9% infusion 05/22/2023 4 ascorbic acid, vitamin C, 500 mg capsuleIndication s:supplement Take 1 tablet by mouth battery container tester before breakfast 07/04/2016 4 clotrimazole-beta methasone (LOTRISONE) cream Apply 1 Application topically daily as needed (rash) 4 coenzyme [id number] E 100-5 mg-unit capsuleIndication s:supplement Take 1 tablet by mouth battery container tester before breakfast 4 diphenoxylate-atr opine (LOMOTIL) 2.5-0.025 [...] week Fluids every -Heparin to flush 4 INV-[facility] cabozantinib/plac abdulkadir (/[id number]) 20 mg tabletIndications :cancer study Take 1 tablet (20 mg total) by mouth nightly Take on an empty stomach (no food for 2 hours before and 1 hour after each dose).?? Avoid [place]nie's Wort, grapefruit products and [place] oranges while on treatment. placed on hold [...] Nursing Notes * Vivian Villar RN - 10/02/2023 11:00 AM CDT Pt presented to [facility] for IV hydration. PAC accessed with brisk blood return. Pt given 1L NS, tolerated well. Confirmed with Sola RN that no labs or mag needed today. PAC flushed and deaccessed per protocol. Discharge instructions reviewed, pt verbalizes understanding. D/c to home in stable condition. 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 Fall Prevention Note: Patient did [...] Once as needed, line care, Starting on Sat10/02/23 at 1100, Flush when all medication administered and labs completed for the day.Indications:Neuroendocri ne carcinoma (HCC),Dehydration Given 10/02/2023 1:28 PM CDT 500 Units sodium chloride 0.9% bolus 1,000 mL 1,000 mL, intravenous, at 500 mL/hr, Administer over 2 Hours, Once, On Sat10/02/23 at 1135, For 1 doseIndications:Neuroendocri ne carcinoma (HCC),Dehydration New Bag 10/02/2023 11:17 AM CDT 1,000 mL 500 mL/hr documented in this encounter Orders Medications Ordered That Brett ht Not Have Been Administered Count Last Ordered Date First Ordered Date heparin 10 unit/mL flush 30 Units 1 024 Appointment Requests Count Last Ordered Date Fi rst Ordered Date ONCBCN INFUSION APPT REQUEST 1 10/02/2023 documented in this encounter Care Teams Commercial Lines Manager Relationship Specialty Start Date End Date Julio César Briseno MD PCP - General 10/01/16 Eren Cr MD Referring Physician Medical Oncology 11/25/18 Yohana Bowen MD Radiation Oncologist Radiation Oncology 11/25/18 Alejo Mi MD [address] [address] Referring Physician Nephrology 03/07/23 documented as of this encounter
--- OUTSIDE RECORDS SUMMARY | 2024-06-25 22:08 | XMS_ITS | Encounter Summary ---
Author Organization [facility] Healthcare Address [address] [place] [address] Care Team Providers Care Rn Physician Office Name Role Phone Julio César Briseno MD Primary Care Provider [phone] Eren Cr MD Unavailable [phone] Yohana Bowen MD Unavailable Alejo Mi MD Unavailable [phone] Encounter Details Date Type Department Care Team (Latest Contact Info) Description 09/04/2023 9:57 AM CLEANING ATTENDANT - 09/04/2023 11:59 PM CLEANING ATTENDANT Hospital Encounter [facility] [place] [facility] ([facility]) [address] [place] [phone] Neuroendocrine carcinoma (HCC); Malignant neoplasm metastatic to [...] on file Legal Sex Female 2:41 PM CLEANING ATTENDANT Gender Identity Not on file Sexual [...] by mouth nightly 0.9 % sodium chloride ([facility] sodium chloride 0.9%) injectionIndicat ions:line care Infuse 10 mL into a venous catheter once a week On saturday 4 0.9 % sodium chloride (sodium chloride 0.9%) 0.9% infusion 05/22/2023 4 ascorbic acid, vitamin C, 500 mg capsuleIndicatio ns:supplement Take 1 tablet by mouth chandelier maker before breakfast 07/04/2016 4 clotrimazole-bet amethasone (LOTRISONE) cream Apply 1 Application topically daily as needed (rash) 4 coenzyme Y77-kvnnvoo E 100-5 mg-unit capsuleIndicatio ns:supplement Take 1 tablet by mouth chandelier maker before breakfast 4 diphenoxylate-at ropine (LOMOTIL) 2.5-0.025 [...] week Fluids every -Heparin to flush 4 [facility] cabozantinib/maris cebo (08-122/A02 1602) 20 mg tabletIndication s:cancer study Take 1 tablet (20 mg total) by mouth nightly Take on an empty stomach (no food for 2 hours before and 1 hour after each dose).?? Avoid [place]'s Wort, grapefruit products and [place] oranges while on treatment. 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) PHOSPHORUS Routine 09/04/2023 10:29 AM CLEANING ATTENDANT 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) MAGNESIUM Routine 09/04/2023 10:29 AM CLEANING ATTENDANT 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) BASIC METABOLIC PANEL Routine 09/04/2023 10:29 AM CLEANING ATTENDANT 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) documented in this encounter Results * (ABNORMAL) eGFR (09/04/2023 10:29 AM CLEANING ATTENDANT) eGFR 57(L) >=60 mL/min/1. 73 m2 [facility] Comment: Interpretive Data Reference Interval Normal ?>/= [...] was last reviewed 2021. Testing performed by: [facility], [address] [place] [phone] Blood 09/04/2023 10:2 9 AM CLEANING ATTENDANT 09/04/2023 10:31 AM CLEANING ATTENDANT Eren Cr MD LAB BLOOD ORDERABLES Final Re sult Performing Organization Address City/[facility] Co de Phone Number [facility] Department [place] [address] * Magnesium (09/04/2023 10:29 AM CLEANING ATTENDANT) Magnesium 1.6 1.4 - 2.5 mg/dL [facility] Comment:Testing performed by : [facility], [address] [place] [phone] Blood 09/04/2023 10:2 9 AM CLEANING ATTENDANT 09/04/2023 10:31 AM CLEANING ATTENDANT Eren Cr MD LAB BLOOD ORDERABLES Final Re sult Performing Organization Address City/[facility]/ZIP Co de Phone Number [facility] Department [place] [address] * Phosphorus (09/04/2023 10:29 AM CLEANING ATTENDANT) Phosphorus, pl 4.2 2.3 - 4.5 mg/dL [facility] Comment:Testing performed by : [facility], [address] [place] [phone] Blood 09/04/2023 10:2 9 AM CLEANING ATTENDANT 09/04/2023 10:31 AM CLEANING ATTENDANT us Eren Cr MD LAB BLOOD ORDERABLES Final Re sult [facility] Department [place] [address] * (ABNORMAL) Basic metabolic panel (09/04/2023 10:29 AM CLEANING ATTENDANT) Sodium 141 135 - 145 mmol/L [facility] Comment:Testing performed by : [facility], [address] [place] [phone] Potassium, pl 4.1 3.3 - 4.9 mmol/L [facility] Comment:Testing performed by : [facility], [address] [place] [phone] Chloride 108 97 - 110 mmol/L [facility] Comment:Testing performed by : [facility], [address] [place] [phone] CO2 26 22 - 32 mmol/L [facility] Comment:Testing performed by : [facility], [address] [place] [phone] Anion gap 7 2 - 15 mmol/L [facility] Comment:Testing performed by : [facility], [address] [place] [phone] BUN 14 6 - 25 mg/dL [facility] Comment:Testing performed by : [facility], [address] [place] [phone] Creatinine 1.03 0.60 - 1.10 mg/dL J[facility]ON [facility] Comment:Testing performed by : [facility], [address] [place] [phone] Glucose 78 70 - 199 mg/dL [facility] Comment: Interpretive Data Fasting glucose [...] was last revised 2022. Testing performed by: [facility], [address] [facility] [phone] Calcium 10.5(H) 8.5 - 10.3 mg/dL [facility] Comment:Testing performed by : [facility], [address] [facility] [phone] Blood 09/04/2023 10:2 9 AM CLEANING ATTENDANT 09/04/2023 10:31 AM CLEANING ATTENDANT us Eren Cr MD LAB BLOOD ORDERABLES Final Re sult JASON BLACK [facility] Department [place] [address] documented in this encounter Visit Diagnoses Diagnosis Neuroendocrine carcinoma (HCC) Other malignant neoplasm of unspecified site Malignant neoplasm metastatic to 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
--- OUTSIDE RECORDS SUMMARY | 2024-06-25 22:08 | XMS_ITS | Encounter Summary ---
Author Organization [facility] Address [address] [place] [address] Phone Care Team Providers Care Photo Booth Operator Name Role Phone Julio César Briseno MD Primary Care Provider [phone] Eren Cr MD Unavailable [phone] Yohana Bowen MD Unavailable Alejo Mi MD Unavailable [phone] Encounter Details Date Type Department Care Team (Late st Contact Info) Description 09/25/2023 Orders Only [facility] Oncology [address] [place] [address] Eren Cr MD [address] [place] [address] Neuroendocrine carcinoma (HCC) (Primary Dx) Social History [...] on file 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
--- OUTSIDE RECORDS SUMMARY | 2024-06-25 22:08 | XMS_ITS | Encounter Summary ---
Author Organization [facility] Address [address] [place] [address] Phone Care Team Providers Care Convalescent Sitter Name Role Phone Julio César Briseno MD Primary Care Provider [phone] Eren Cr MD Unavailable [phone] Yohana Bowen MD Unavailable [place] MD Unavailable [phone] Reason for Visit * Reason Comments Injections * Episode Based Medications (Routine) - Authorized Specialty Diagnoses / Procedures Referred By Contac t Referred To Contact Oncology Diagnoses 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) Procedures NC OCTREOTIDE INJECTION, DEPOT Octreotide 28 Day Cycles - Carcinoid Eren Cr MD [address] [facility] [address] [place] [address] Phone: tel: fax: [address] [address] Phone: tel: fax: Referral ID Status Reason Start Date Expiration Date V isits Requested Visits Authorized [id number] Authorized 11/28/2017 02/05/2025 1 150 Encounter Details Date Type Department Care Team (Late st Contact Info) Description 09/26/2023 3:[address] 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 female who presents for the following injection: Xgeva + Octreotide Nursing Assessment Nursing Assessment LOC: Alert Constitutional: Fatigue Fatigue: Occassional Any falls since your last visit?: No Orientation: Oriented x4 Speech: Clear Language: No aphasia Vision: At baseline Peripheral Neuropathy: No Oral Mucosa Grade: Normal (0) Pt states has potential to be ?: No Shortness of Breath?: No Lungs auscultated PRN: No Pt is on oxygen?: No Have You Recently Lost Weight Without Trying?: No Have you been eating poorly because of a decreased appetite?: No Malnutrition Screening Tool (MST) Score: 0 Nausea/Vomiting: No Diarrhea: Yes (ostomy) Constipation: No Skin Condition/Temp: Warm, Dry Swelling: No Additional Notes: Pt denies jaw pain or any upcoming dental work. Taking Calcium supplements as ordered BP: 158/80 Temp: 36.6 ??C (97.9 ??F) Temp src: Oral Pulse: 95 Resp: 16 SpO2: 95 % Weight: 76 kg (167 lb 9.6 oz) Patient: met treatment parameters La Chung [...] 120 mg 120 mg, subcutaneous, Once, On Lydia 09/26/23 at 1545, For 1 dose, Calcium level should be greater than 8 mg/dl Administer injection in upper arm, abdomen or upper thigh Refrigerate. Allow to stand 15 to 30 mins prior to useIndications:Neuro-endoc rine carcinoma (HCC),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) Given 09/26/2023 3:30 PM CDT 120 mg Right Lower Abdomen octreotide LAR (SandoSTATIN LAR) extended release intramuscular injection 30 mg 30 mg, intramuscular, Once, On Lydia 09/26/23 at 1545, For 1 dose, Refrigerate. For IM intragluteal administration only- alternate gluteal sites. 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) Given 09/26/2023 3:31 PM CDT 30 mg Right Dorsogluteal/Butto ck documented in this encounter Orders Nursing Count Last Ordered Date First Orde red Date ONCBCN NURSING COMMUNICATION [id number] 09/25 ONCBCN NURSING COMMUNICATION [id number] 1 0 09/26/2023 PHYSICIAN COMMUNICATION ORDER 1 09/26/2023 Appointment Requests Count Last Ordered Date Fi rst Ordered Date ONCBCN INJECTION APPOINTMENT REQUEST 1 09/06 documented in this encounter Care Teams Convalescent Sitter Relationship Specialty Start Date End Date Julio César Briseno MD PCP - General 10/01/16 Eren Cr MD Referring Physician Medical Oncology 11/25/18 Yohana Bowen MD Radiation Oncologist Radiation Oncology 11/25/18 Alejo Mi MD [address] [place] [address] Referring Physician Nephrology 03/07/23 documented as of this encounter
--- OUTSIDE RECORDS SUMMARY | 2024-06-25 22:08 | XMS_ITS | Encounter Summary ---
Author Organization [facility] Address [address] [place] [address] Phone Care Team Providers Care Electrical Prospector Name Role Phone Julio César Briseno MD Primary Care Provider [phone] Eren Cr MD Unavailable Yohana Bowen MD Unavailable Alejo Mi MD Unavailable [phone] Encounter Details Date Type Department Care Team (Late st Contact Info) Description 08/27/2023 Orders Only [facility] Oncology [address] [place] [address] Eren Cr MD [address] [place] [address] Social History Tobacco Use Types Packs/Day Years [...] on file 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 Gender Identity Not on file Sexual Orientation Straight 02/19/2021 9: 29 AM CDT Occupation Industry Job Start Date Job End Date retired Not on file Not on file Not on file documented as of this encounter Plan of Treatment Not on file documented as of this encounter Visit Diagnoses Not on filedocumented in this encounter Care Teams Electrical Prospector Relationship Specialty Start Date End Date Julio César Briseno MD PCP - General 10/01/16 Eren Cr MD Referring Physician Medical Oncology 11/25/18 Yohana Bowen MD Radiation Oncologist Radiation Oncology 11/25/18 Alejo Mi MD [address] [place] [address] Referring Physician Nephrology 03/07/23 documented as of this encounter
--- OUTSIDE RECORDS SUMMARY | 2024-06-25 22:08 | XMS_ITS | Encounter Summary ---
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 Gender Identity Not on file Sexual [...] by mouth nightly 0.9 % sodium chloride ([facility] sodium chloride 0.9%) injectionIndicati ons:line care Infuse 10 mL into a venous catheter once a week On saturday 4 0.9 % sodium chloride (sodium chloride 0.9%) 0.9% infusion 05/22/2023 4 ascorbic acid, vitamin C, 500 mg capsuleIndication s:supplement Take 1 tablet by mouth printed circuit boards plasma etcher before breakfast 07/04/2016 4 clotrimazole-beta methasone (LOTRISONE) cream Apply 1 Application topically daily as needed (rash) 4 coenzyme K68-wlifuig E 100-5 mg-unit capsuleIndication s:supplement Take 1 tablet by mouth printed circuit boards plasma etcher before breakfast 4 diphenoxylate-atr opine (LOMOTIL) 2.5-0.025 [...] week Fluids every -Heparin to flush 4 INV-[facility] cabozantinib/plac abdulkadir (/[id number]) 20 mg tabletIndications :cancer study Take 1 tablet (20 mg total) by mouth nightly Take on an empty stomach (no food for 2 hours before and 1 hour after each dose).?? Avoid [place]'s Wort, grapefruit products and [place] oranges while on treatment. 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) VITAMIN D 25 HYDROXY Routine 09/26/2023 1:03 PM CDT 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) TSH Routine 09/26/2023 1:03 PM CDT Neuro-endocrine carcinoma (HCC) PHOSPHORUS Routine 09/26/2023 1:03 PM CDT 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 73 m2 Comment: Interpretive Data [...] interpretive data was last reviewed 2021. Blood 09/26/2023 1:03 PM CDT 09/26/2023 1:03 PM CDT us Eren Cr MD LAB BLOOD ORDERABLES Final Re sult [facility] [place] [address] * (ABNORMAL) Differential, auto (09/26/2023 1:03 PM CDT) Pathologist [facility] Neutrophil abs 2.4 1.5 - 6.5 K/cumm Comment:Testing performed by : [facility], [address] [place] [address] Imm gran abs 0.0 0.0 - 0.1 K/cumm [facility] Lymphocyte abs 0.5(L) 0.8 - 3.3 K/cumm [facility] Monocyte abs 0.4 0.2 - 0.8 K/cumm [facility] Eosinophil abs 0.2 0.0 - 0.5 K/cumm [facility] Basophil abs 0.0 0.0 - 0.1 K/cumm [facility] Neutrophil pct 68.4 % [facility] Comment: Interpretive Data Percent cell count reference ranges are not reported, since discordance with absolute values may lead to misinterpretation of CBC data. Current Interpretive Data was last revised on 2017. Imm gran pct 0.3 % [facility] Comment: Interpretive Data Percent cell count reference ranges are not reported, since discordance with absolute values may lead to misinterpretation of CBC data. Current Interpretive Data was last revised on 2017. Lymphocyte pct 12.9 % [facility] Comment: Interpretive Data Percent cell count reference ranges are not reported, since discordance with absolute values may lead to misinterpretation of CBC data. Current Interpretive Data was last revised on 2017. Monocyte pct 12.3 % [facility] Comment: Interpretive Data Percent cell count reference ranges are not reported, since discordance with absolute values may lead to misinterpretation of CBC data. Current Interpretive Data was last revised on 2017. Eosinophil pct 5.3 % [facility] Comment: Interpretive Data Percent cell count reference ranges are not reported, since discordance with absolute values may lead to misinterpretation of CBC data. Current Interpretive Data was last revised on 2017. Basophil pct 0.8 % [facility] Comment: Interpretive Data Percent cell count reference ranges are not reported, since discordance with absolute values may lead to misinterpretation of CBC data. Current Interpretive Data was last revised on 2017. Blood 09/26/2023 1:03 PM CDT 09/26/2023 1:03 PM CDT us Eren Cr MD LAB BLOOD ORDERABLES [facility] Department [place] [address] * Magnesium (09/26/2023 1:03 PM CDT) Pathologist [facility] Magnesium 1.7 1.4 - 2.5 mg/dL Comment:Testing performed by : [facility], [address] [place] [address] Blood 09/26/2023 1:03 PM CDT 09/26/2023 1:03 PM CDT Eren Cr MD LAB BLOOD ORDERABLES Final Re sult Performing Organization Address [facility] Co de Phone Number [facility] [place] [address] * (ABNORMAL) TSH (09/26/2023 1:03 PM CDT) Thyroid Stimulating Hormone 5.57(H) 0.30 - 4.20 mcIUnit/mL Blood 09/26/2023 1:03 PM CDT 09/26/2023 3:38 PM CDT Eren Cr MD LAB BLOOD ORDERABLES Final Re sult Performing Organization Address [facility] de Phone Number [facility] [place] [address] * (ABNORMAL) Lipid panel (09/26/2023 1:03 PM CDT) Cholesterol 136 30 - 199 mg/dL [...] Data was last revised on 2018. Triglycerides 173(H) <=149 mg/dL [facility] Comment: Interpretive Data Ages < [...] Data was last revised on 2018. HDL 56 >=40 mg/dL [facility] Comment: Interpretive Data Ages < [...] was last revised on 2018. LDL, calculated 45 <=129 mg/dL [facility] Comment: Interpretive Data Ages < [...] revised on 2018. Non-HDL Cholesterol 80 mg/dL [facility] Comment: Interpretive Data Ages < [...] last revised on 2018. Chol/HDL ratio 2 [facility] Blood 09/26/2023 1:03 PM CDT 09/26/2023 3:38 PM CDT Eren Cr MD LAB BLOOD ORDERABLES Final Re sult [facility] Department [place] [address] * Phosphorus (09/26/2023 1:03 PM CDT) [facility] Phosphorus, pl 2.8 2.3 - 4.5 mg/dL Comment:Testing performed by : [facility], [address] [place] [address] Blood 09/26/2023 1:03 PM CDT 09/26/2023 1:03 PM CDT Eren Cr MD LAB BLOOD ORDERABLES [place] [address] * (ABNORMAL) Vitamin D 25 hydroxy (09/26/2023 1:03 PM CDT) [facility] Vitamin D 25-OH 22(L) 30 - 80 ng/mL Blood 09/26/2023 1:03 PM CDT 09/26/2023 3:38 PM CDT Eren Cr MD LAB BLOOD ORDERABLES Final Re sult Performing Organization Address [facility] [place] [address] * (ABNORMAL) CBC with auto differential (09/26/2023 1:03 PM CDT) [facility] WBC 3.6(L) 3.8 - 9.9 K/cumm Comment:Testing performed by : [address] [address] Hgb 11.8(L) 11.9 - 15.5 g/dL [facility] Comment:Testing performed by : [address] [address] Hct 35.8 35.6 - 45.5 % [facility] Comment:Testing performed by : [address] [address] Plt 90(L) 150 - 400 K/cumm [facility] Comment:Testing performed by : [address] [address] MPV 11.1 9.1 - 12.3 fL [facility] RBC 3.71(L) 3.90 - 5.20 M/cumm [facility] MCV 96.5(H) 81.3 - 96.4 fL [facility] MCH 31.8 27.1 - 33.3 pg [facility] MCHC 33.0 32.3 - 35.7 g/dL [facility] RDW CV 14.9 11.1 - 14.9 % [facility] RDW SD 52.3(H) 35.7 - 48.1 fL [facility] NRBC abs 0.00 0.00 - 0.01 K/cumm [facility] Blood 09/26/2023 1:03 PM CDT 09/26/2023 1:03 PM CDT us Eren Cr MD LAB BLOOD ORDERABLES Final Re sult [facility] Department [place] [address] * (ABNORMAL) Comprehensive metabolic panel (09/26/2023 1:03 PM CDT) Sodium 138 135 - 145 mmol/L Comment:Testing performed by : [facility], [address] [place] [address] Potassium, pl 4.3 3.3 - 4.9 mmol/L [facility] Chloride 105 97 - 110 mmol/L [facility] CO2 27 22 - 32 mmol/L [facility] Anion gap 6 2 - 15 mmol/L [facility] BUN 11 6 - 25 mg/dL [facility] Creatinine 1.24(H) 0.60 - 1.10 mg/dL [facility] Glucose 95 70 - 199 mg/dL [facility] Comment: Interpretive Data Fasting glucose [...] 2022. Calcium 9.8 8.5 - 10.3 mg/dL [facility] Bilirubin, total 0.7 0.1 - 1.2 mg/dL [facility] Protein, pl 6.4(L) 6.5 - 8.5 g/dL [facility] Albumin 4.1 3.5 - 5.0 g/dL [facility] Alk phos 69 40 - 130 Units/L [facility] ALT 20 7 - 45 Units/L [facility] AST 39 10 - 45 Units/L [facility] Blood 09/26/2023 1:03 PM CDT 09/26/2023 1:03 PM CDT us Eren Cr MD LAB BLOOD ORDERABLES Final Re sult [facility] Department [place] [address] * (ABNORMAL) Chromogranin A (09/26/2023 1:03 PM CDT) Chromogranin A 2170(H) <93 ng/mL [facility] Comment: Impaired renal or hepatic function or treatment with proton pump inhibitors may result in artifactual elevations of Chromogranin A. ADDITIONAL INFORMATION This test was developed and its performance characteristics determined by [facility] in a manner consistent with CLIA requirements. This test has not been cleared or approved by the U.S. Food and Drug Administration. In some immunoassays, the presence of unusually [...] medical history, clinical examination and other findings. The testing method is a homogeneous time-resolved immunofluorescent assay manufactured by [employer] and performed on the [employer] Kryptor Compact Plus. ? Values obtained with different assay methods or kits may be different and cannot be used interchangeably. ? Test results cannot be interpreted as absolute evidence for the presence or absence of malignant disease. Test Performed by: [facility] - [facility] [address] [place] [address] Paradi Tender: Immanuel Novak M.D. 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
--- OUTSIDE RECORDS SUMMARY | 2024-06-25 22:08 | XMS_ITS | Encounter Summary ---
Author Organization [facility] Address [address] [place] [address] Phone Care Team Providers Care Behavioral Sciences Department Chair Name Role Phone Julio César Briseno MD Primary Care Provider [phone] Eren Cr MD Unavailable [phone] Yohana Bowen MD Unavailable AlbiaAlejo Ramos MD Unavailable [phone] Reason for Visit * Episode Based Medications (Routine) - Closed Specialty Diagnoses / Procedures Referred By Contac t Referred To Contact Diagnoses Neuro-endocrine carcinoma (HCC) Procedures study [id number] phase III cabozantinib Eren Cr MD [address] [facility] [address] [place] [address] Phone: tel: fax: [facility] [address] [facility] Advanced Medicine 7th [place] [address] Phone: tel: Referral ID Status Reason Start Date Expiration Date Visits Re quested Visits Authorized [id number] Closed 06/21/2021 06/26/2024 1 99 Encounter Details Date Type Department Care Team (Late st Contact Info) Description 09/26/2023 1:45 PM CDT Office Visit [facility] [address] [place] [address] Eren Cr MD [address] [facility] [address] [place] [address] Neuroendocrine carcinoma (HCC) (Primary Dx); Malignant neoplasm [...] on file Legal Sex Female 2:41 PM PARKING MANAGER Gender Identity Not on file Sexual Orientation Straight 02/19/2021 9: 29 AM CDT Occupation Industry Job Start Date Job End Date retired Not on file Not on file Not on file documented as of this encounter Last Filed Vital Signs Vital Sign Reading Time Taken Comments Blood Pressure 158/80 09/26/2023 1:43 PM CDT Pulse 95 09/26/2023 1:43 PM CDT Temperature 36.6 ??C (97.9 ??F) 09/26/2023 1:43 PM CD T Respiratory Rate 16 09/26/2023 1:43 PM CDT Oxygen Saturation 95% 09/26/2023 1:43 PM CDT Inhaled Oxygen Concentration - - Weight 76 kg (167 lb 9.6 oz) 09/26/2023 1:43 PM CDT Height - - Body Mass Index 29.69 09/06/2023 2:48 PM PARKING MANAGER documented in this encounter Progress Notes * Eren Cr MD - 09/26/2023 1:45 PM CDT Images from the original note were not included. MEDICAL ONCOLOGY OUTPATIENT ROV NOTE La Chung : 1950 DATE OF VISIT: 09/26/23 Oncology History Overview Note DIAGNOSIS: well differentiated [...] time, she also underwent right colectomy [facility] by Dr. Greyson Reeves. Biopsy revealed [...] rather than placebo) - 04/04/2023: Cycle 22 - 05/02/2023: Cycle 23 - 05/24/2023 CT: stable disease - 05/28/2023: Cycle 24 - 06/27/2023: Cycle 25 - 07/25/2023: Cycle 26 - 08/16/2023 CT: stable disease - 08/27/2023: Cycle 27 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) Neuroendocrine tumor 01/06/2018 Initial Diagnosis Neuroendocrine tumor INTERVAL HISTORY: La Chung is a 72 y.o. 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 She was last seen in clinic 08/27/2023 and received Cycle 27 cabozantinib (open label) on CABINET study. Today, she is here with her and notes: - feeling okay - has chronic diarrhea - BP managed by PCP, now on amlodipine - no fevers, chills, SOB or chest pain. - no nausea/vomiting - mild anorexia, no desire to eat more - no abdominal pain - insomnia, waking up middle of night and cannot go back to sleep REVIEW OF SYSTEMS: Review of Systems Constitutional: Negative for chills, fatigue, fever and malaise. HENT: Positive for hearing loss. Negative for mouth sores and sore throat. Eyes: Negative for change in vision. Watery eyes Respiratory: Negative. Negative for cough and shortness of breath. Cardiovascular: Negative. Negative for chest pain and palpitations. Gastrointestinal: Positive for diarrhea and nausea. Negative for abdominal distention, abdominal pain, blood in stool, constipation and vomiting. Chronic baseline diarrhea Genitourinary: Negative. Negative for bladder incontinence, dysuria and frequency. Musculoskeletal: Positive for back pain. Right lower back since 06/2023 Skin: Negative. Neurological: Negative. Negative for extremity weakness. Psychiatric/Behavioral: The patient is nervous/anxious. All other systems reviewed and are negative. PHYSICAL EXAM: ECOG PS: 1 VITALS: BP 158/80 (BP Location: Left arm) Pulse 95 Temp 36.6 ??C (97.9 ??F) (Oral) Resp 16 Wt 76 kg (167 lb 9.6 oz) SpO2 95% BMI 29.69 kg/m?? Physical Exam Vitals reviewed. Exam conducted with a director of strategy & mobile present. Constitutional: General: She is not in [...] Heart sounds: Normal heart sounds. Pulmonary: Effort: No respiratory distress. Breath sounds: Normal breath [...] place, and time. Gait: Gait normal. Psychiatric: Behavior: Behavior normal. Thought Content: Thought content normal. Judgment: Judgment normal. LABORATORY: I personally reviewed all laboratories and discussed with patient during office visit, selected values included below. Hematology Lab History Latest Ref Rng & Units 06/27/2023 10:04 07/25/2023 09:47 08/27/2023 09:38 09/26/2023 13:03 Labs - Hematology WBC 3.8 - 9.9 K/cumm 2.8 3.1 2.6 3.6 Total Hb, POC 11.9 - 15.5 g/dL 11.2 11.8 10.7 11.8 Hct 35.6 - 45.5 % 34.1 35.5 33.4 35.8 Plt 150 - 400 K/cumm 84 84 76 90 Neutrophil abs 1.5 - 6.5 K/cumm 1.9 1.9 2.0 1.7 2.4 Lymphocytes, abs 0.8 - 3.3 K/cumm 0.3 0.3 0.4 0.4 0.5 Chem/LFT Lab History Latest Ref Rng & Units 08/16/2023 11:03 08/27/2023 09:38 09/04/2023 10:29 09/26/2023 13:03 Labs-Chem/LFT Sodium 135 - 145 mmol/L 140 141 138 Creatinine 0.60 - 1.10 mg/dL 1.07 1.03 1.24 Bilirubin, total 0.1 - 1.2 mg/dL 0.5 0.7 AST 10 - 45 Units/L 31 39 ALT 7 - 45 Units/L 22 20 Alk phos 40 - 130 Units/L 63 69 CrCl- Actual Body Weight (Cockcroft-Gault) 45.3 56.8 58.8 47.8 Tumor Marker History Latest Ref Rng & Units 05/28/2023 14:10 06/27/2023 10:04 07/25/2023 09:47 08/27/2023 09:38 Tumor Markers Chromogranin A <93 ng/mL 1434 1996 1970 2074 RADIOGRAPHIC/DIAGNOSTIC REVIEW: CT chest abdomen pelvis with [...] dose 20mg daily. - We reviewed her labs, notable for Cr 1.24, normal LFT, Mg 1.7, Phos 2.8 CGA pending, ANC 2.4, Hgb11.8, PLT 90. - We will plan to proceed with cycle 28 day 1 of CABINET study, will continue on 20 mg dosing of cabozantinib. Patient is agreeable. - She will return for follow up in 4 weeks per protocol. 2. Bone metastases - Last received 04/04/2023. - No suspicious lesions on last CT. - On xgeva, last recived 04/2023. 3. Diarrhea - Has chronic diarrhea since diagnosis. 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 4. Hypothyroidism with TSH elevated - Managed per endocrinology. - TSH 4.79 5. Vitamin D insufficiency/Deficiency - Vit D checked 06/11 16. Pt on ergocalciferol 64662 units weekly. - followed by nephrology 6. Renal function - Creatinine 1.24 - follows with Nephrology 7. Right TM perforation - Follow up with ENT, s/p surgery. 8. Hyperparathyroidism - Calcium 9.8 - May be secondary to CKD, denosumab use. - On vit d supplementation. - nephrology following. 9. Eye disorder, grade 1, watery eyes - Not a reported side effect of cabozantinib, appears unrelated at this time. - F/u Ophthalmology as needed 10. HTN - Started on losartan recently per her PCP. - G1 HTN today. BP 158/80 Eren Cr MD Jump to the Problem List Disease Status Documentation for mCODE Neoplastic Disease Neuroendocrine carcinoma (CMS/HCC) (HCC) Cancer Disease Assessment for mCODE Disease status: not evaluated Date of cancer disease status assessment: 09/26/23 Malignant neoplasm metastatic to liver (HCC) Cancer [...] may reflect changes made after this encounter. Medication Sig Dispense Quantity Refills Last Filled Start D ate End Date amLODIPine (NORVASC) 5 mg tablet 09/25/2023 added in this encounter Orders Appointment Requests Count Last Ordered Date Fi rst Ordered Date ONCBCN INFUSION APPT REQUEST 3 10/29/2023 09/26/2023 ONCBCN CLINIC APPOINTMENT REQUEST 1 024 ONCBCN INJECTION APPOINTMENT REQUEST 1 09/06 documented in this encounter Care Teams Behavioral Sciences Department Chair Relationship Specialty Start Date End Date Julio César Briseno MD PCP - General 10/01/16 Eren Cr MD Referring Physician Medical Oncology 11/25/18 Yohana Bowen MD Radiation Oncologist Radiation Oncology 11/25/18 Alejo Mi MD [address] [place] [address] Referring Physician Nephrology 03/07/23 documented as of this encounter
--- OUTSIDE RECORDS SUMMARY | 2024-06-25 22:08 | XMS_ITS | Encounter Summary ---
Author Organization [facility] Healthcare Address [address] [place] [address] Care Team Providers Care Supervisor Printing Shop Name Role Phone Julio César Briseno MD Primary Care Provider [phone] Eren Cr MD Unavailable [phone] Yohana Bowen MD Unavailable Alejo Mi MD Unavailable [phone] Encounter Details Date Type Department Care Team (Latest Contact Info) Description 09/11/2023 8:16 AM FOOD ADVISER - 09/11/2023 11:59 PM FOOD ADVISER Hospital Encounter [facility] [facility] ([facility]) [address] [place] [phone] Hypothyroidism, unspecified type Discharge Disposition: Discharge to home [...] file Legal Sex Female 2:41 PM FOOD ADVISER Gender Identity Not on file Sexual Orientation [...] by mouth nightly 0.9 % sodium chloride ([facility] sodium chloride 0.9%) injectionIndicati ons:line care Infuse 10 mL into a venous catheter once a week On saturday 4 0.9 % sodium chloride (sodium chloride 0.9%) 0.9% infusion 05/22/2023 4 ascorbic acid, vitamin C, 500 mg capsuleIndication s:supplement Take 1 tablet by mouth popcorn attendant before breakfast 07/04/2016 4 clotrimazole-beta methasone (LOTRISONE) cream Apply 1 Application topically daily as needed (rash) 4 coenzyme Q69-twivnyk E 100-5 mg-unit capsuleIndication s:supplement Take 1 tablet by mouth popcorn attendant before breakfast 4 diphenoxylate-atr opine (LOMOTIL) 2.5-0.025 [...] week Fluids every -Heparin to flush 4 [facility] cabozantinib/plac abdulkadir (/[id number]) 20 mg tabletIndications :cancer study Take 1 tablet (20 mg total) by mouth nightly Take on an empty stomach (no food for 2 hours before and 1 hour after each dose).?? Avoid Gilbert's Wort, grapefruit products and [place] oranges while on treatment. placed on hold [...] 1 tablet (88 mcg total) by mouth popcorn attendant before breakfast 90 tablet 1 10/12/2022 4 [...] Procedure Name Priority Date/Time Associated Diagnosis Comments TSH Routine 09/11/2023 9:02 AM FOOD ADVISER Hypothyroidism, unspecified type T4, FREE Routine 09/11/2023 9:02 AM FOOD ADVISER Hypothyroidism, unspecified type CORTISOL Routine 09/11/2023 9:02 AM FOOD ADVISER Hypothyroidism, unspecified type ACTH Routine 09/11/2023 7:44 AM FOOD ADVISER Hypothyroidism, unspecified type documented in this encounter Results * Cortisol (09/11/2023 9:02 AM FOOD ADVISER) Cortisol 10.0 4.8 - 19.5 mcg/dL Comment: Interpretive Data: Morning hours 6-10 a.m. ??4.8 - 19.5 mcg/dL Afternoon hours 4-8 p.m. ??2.68 - 10.5 mcg/dL This analyte undergoes marked diurnal variation. Current interpretive data was last revised 21. Blood 09/11/2023 9:02 AM FOOD ADVISER 09/11/2023 9:37 AM FOOD ADVISER Narrative JASON BLACK - 09/11/2023 10:28 AM FOOD ADVISER 8AM cortisol us Leila Gaytan MD LAB BLOOD ORDERABLES Final R esult JASON [facility] Department of Laboratories [place], [place] [id number] * T4, free (09/11/2023 9:02 AM FOOD ADVISER) Free T4 1.38 0.90 - 1.70 ng/dL Blood 09/11/2023 9:02 AM FOOD ADVISER 09/11/2023 9:37 AM FOOD ADVISER Leila Gaytan MD LAB BLOOD ORDERABLES Final R esult Performing Organization Address [facility] [place] [address] * (ABNORMAL) TSH (09/11/2023 9:02 AM FOOD ADVISER) Thyroid Stimulating Hormone 4.79(H) 0.30 - 4.20 mcIUnit/mL Blood 09/11/2023 9:02 AM FOOD ADVISER 09/11/2023 9:37 AM FOOD ADVISER Leila Gaytan MD LAB BLOOD ORDERABLES Final R esult Performing Organization Address [facility] [place] [address] * ACTH (09/11/2023 7:44 AM FOOD ADVISER) ACTH 25.8 7.0 - 63.0 pg/mL Blood 09/11/2023 7:44 AM FOOD ADVISER 09/11/2023 9:23 AM FOOD ADVISER Leila Gaytan MD LAB BLOOD ORDERABLES Final R esult Performing Organization Address [facility] [place] [address] documented in this encounter Visit Diagnoses Diagnosis Hypothyroidism, unspecified type documented in this encounter Care Teams Supervisor Printing Shop Relationship Specialty Start Date End Date Julio César Briseno MD PCP - General 10/01/16 Eren Cr MD Referring Physician Medical Oncology 11/25/18 Yohana Bowen MD Radiation Oncologist Radiation Oncology 11/25/18 Alejo Mi MD [address] [place] [address] Referring Physician Nephrology 03/07/23 documented as of this encounter
--- OUTSIDE RECORDS SUMMARY | 2024-06-25 22:09 | XMS_ITS | Encounter Summary ---
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 [address] [facility] 7th [place] [address] Phone: tel: Referral ID Status Reason Start Date Expiration Date V isits Requested Visits Authorized [id number] Authorized 03/02/2019 10/06/2024 1 60 Encounter Details Date Type Department Care Team (Late st Contact Info) Description 07/25/2023 11:00 AM LOSS PREVENTION SUPERVISOR Infusion [facility] Oncology [address] [place] [address] Neuroendocrine carcinoma (HCC) (Primary Dx); Dehydration; Hypophosphatemia Social History Tobacco Use Types [...] on file Legal Sex Female 2:41 PM LOSS PREVENTION SUPERVISOR Gender Identity Not on file Sexual Orientation Straight 02/19/2021 9: 29 AM CDT Occupation Industry Job Start Date Job End Date retired Not on file Not on file Not on file documented as of this encounter Nursing Notes * Cornelia Giron, [place] - 07/25/2023 11:00 AM CST Oncology Nursing Note [facility] ONCOL[facility] La Chung is a 72 y.o. female who presents for tiv hydration and iv antiemetics; treatment 43 of xgeva and cycle 67 of Sandostatin. Pre-treatment Nursing Assessment Nursing Assessment LOC: Alert, Awake Fatigue: Occassional Any falls since your last visit?: No Orientation: Oriented x4 Behavior: Calm Speech: Clear Language: No aphasia Vision: At baseline Peripheral Neuropathy: No Oral Mucosa Grade: Normal (0) Shortness of Breath?: Yes (with exertion) Appetite: Poor Nausea/Vomiting: Yes Diarrhea: Yes Constipation: No Swelling: No Additional Notes: 8mg iv zofran administered. BP: 138/77 Temp: 36.2 ??C (97.2 ??F) Pulse: 84 Resp: 16 SpO2: 95 % Weight: 76.7 kg (169 lb) Pain Score: 0 - No pain Treatment Patient: met treatment parameters Pre blood return: Rosemaryni Chung tolerated treatment well. Patient was frequently observed and monitored throughout the administration of their treatment. Post blood return: Brisk IV access post infusion: NS Patient Education Treatment Education: Information/teaching given to patient including fall prevention, adverse reaction, symptom management, process and procedure related to today's visit, and when to notify MD Response: Verbalizes understanding Discharge Plan Discharge instructions given to patient. Future appointments given and reviewed with treatment plan. Discharge Mode: Ambulatory Accompanied by: Spouse Discharged To: Home PREVENTION SUPERVISOR documented in this encounter Plan of Treatment Not on file documented as of this encounter Visit Diagnoses Diagnosis Neuroendocrine carcinoma (HCC)- Primary Other malignant neoplasm of unspecified site Dehydration Hypophosphatemia Disorders of phosphorus metabolism documented in this encounter Administered Medications Inactive Administered Medications - up to 3 most recent administrations Medication Order MAR Action Action Date Dose Rate Site denosumab (XGEVA) subcutaneous syringe 120 mg 120 mg, subcutaneous, Once, On Lydia 07/25/23 at 1145, For 1 dose, Calcium level should be greater than 8 mg/dl Administer injection in upper arm, abdomen or upper thigh Refrigerate. Allow to stand 15 to 30 mins prior to useIndications:Neuro-endoc rine carcinoma (HCC),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) Given 07/25/2023 12:56 PM LOSS PREVENTION SUPERVISOR 120 mg Right Lower Abdomen octreotide LAR (SandoSTATIN LAR) extended release intramuscular injection 30 mg 30 mg, intramuscular, Once, On Lydia 07/25/23 at 1145, For 1 dose, Refrigerate. For IM intragluteal administration only- alternate gluteal sites. 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) Given 07/25/2023 12:57 PM LOSS PREVENTION SUPERVISOR 30 mg Right Dorsogluteal/Butto ck documented in this encounter Orders Medications Ordered That Brett ht Not Have Been Administered Count Last Ordered Date First Ordered Date ondansetron (ZOFRAN) injection 8 mg 1 07/25 sodium chloride 0.9% bolus 1,000 mL 1 07/25 documented in this encounter Care Teams Oyster Cultivator Relationship Specialty Start Date End Date Julio César Briseno MD PCP - General 10/01/16 Eren Cr MD Referring Physician Medical Oncology 11/25/18 Yohana Bowen MD Radiation Oncologist Radiation Oncology 11/25/18 Alejo Mi MD [address] [place] [address] Referring Physician Nephrology 03/07/23 documented as of this encounter
--- OUTSIDE RECORDS SUMMARY | 2024-06-25 22:09 | XMS_ITS | Encounter Summary ---
Author Organization [facility] Address [address] [place] [address] Phone Care Team Providers Care Commercial Announcer Name Role Phone Julio César Briseno MD Primary Care Provider [phone] Eren Cr MD Unavailable [phone] Yohana Bowen MD Unavailable BuckhornAlejo Ramos MD Unavailable [phone] Reason for Visit * Episode Based Medications (Routine) - Closed Specialty Diagnoses / Procedures Referred By Contac t Referred To Contact Diagnoses Neuro-endocrine carcinoma (HCC) Procedures study [id number] phase III cabozantinib Eren Cr MD [address] [place] [address] Phone: tel: fax: [facility] [address] [facility] 7th [place] [address] Phone: tel: Referral ID Status Reason Start Date Expiration Date Visits Re quested Visits Authorized [id number] Closed 06/21/2021 06/26/2024 1 99 Encounter Details Date Type Department Care Team (Latest Contact Info) Description 07/25/2023 12:00 PM SENIOR WIND TURBINE TECHNICIAN Research Med Pick-Up/CTRU Picture Enlarger [facility] Oncology [address] [place] [address] Neuro-endocrine carcinoma (HCC) (Primary Dx) Social History [...] file Legal Sex Female 2:41 PM SENIOR WIND TURBINE TECHNICIAN Gender Identity Not on file Sexual [...] Ordered Date First Ordered Date INV-[id number] cabozantinib (2018-02-122/[id number]) tablet 20 mg 1 07/25/2023 Nursing Count Last Ordered Date First Orde red Date ONCBCN STUDY COMMUNICATION 1 07/25/2023 ONCBCN TREATMENT PARAMETERS 1 07/25/2023 Appointment Requests Count Last Ordered Date Fi rst Ordered Date ONCBCN TAKE HOME STUDY DRUG APPT 1 07/25/19 24 documented in this encounter Care Teams Commercial Announcer Relationship Specialty Start Date End Date Julio César Briseno MD PCP - General 10/01/16 Eren Cr MD Referring Physician Medical Oncology 11/25/18 Yohana Bowen MD Radiation Oncologist Radiation Oncology 11/25/18 Alejo Mi MD [address] [address] Referring Physician Nephrology 03/07/23 documented as of this encounter
--- OUTSIDE RECORDS SUMMARY | 2024-06-25 22:09 | XMS_ITS | Encounter Summary ---
Author Organization [facility] Address [address] [place] [address] Phone Care Team Providers Care Slurry Tank Operator Name Role Phone Julio César Briseno MD Primary Care Provider Eren Cr MD Unavailable [phone] Yohana Bowen MD Unavailable Alejo Mi MD Unavailable [phone] Encounter Details Date Type Department Care Team (Late st Contact Info) Description 07/03/2023 3:00 PM BUFFET WAITER/WAITRESS Infusion [facility] Oncology [address] [facility] 7th [place] [address] Dehydration (Primary Dx); Neuroendocrine carcinoma [...] on file Legal Sex Female 2:41 PM BUFFET WAITER/WAITRESS Gender Identity Not on file Sexual Orientation Straight 02/19/2021 9: 29 AM CDT Occupation Industry Job Start Date Job End Date retired Not on file Not on file Not on file documented as of this encounter Last Filed Vital Signs Vital Sign Reading Time Taken Comments Blood Pressure 129/82 07/03/2023 3:08 PM BUFFET WAITER/WAITRESS Pulse 80 07/03/2023 3:08 PM BUFFET WAITER/WAITRESS Temperature 36.6 ??C (97.9 ??F) 07/03/2023 3:08 PM CS T Respiratory Rate 18 07/03/2023 3:08 PM BUFFET WAITER/WAITRESS Oxygen Saturation 97% 07/03/2023 3:08 PM BUFFET WAITER/WAITRESS Inhaled Oxygen Concentration - - Weight 77.1 kg (170 lb) 07/03/2023 3:08 PM BUFFET WAITER/WAITRESS Height - - Body Mass Index 30.11 06/11/2023 3:18 PM BUFFET WAITER/WAITRESS documented in this encounter Nursing Notes * Caroline Kam, [place] - 07/03/2023 3:00 PM CST Oncology Nursing Note [facility] ONCOLOGY La Chung is a 72 y.o. female who presents for treatment 36 of IVF. Pre-treatment Nursing Assessment Nursing Assessment LOC: Alert, Awake Fatigue: Occassional Any falls since your last visit?: No Orientation: Oriented x4 Behavior: Calm Speech: Clear Language: No aphasia Peripheral Neuropathy: No Oral Mucosa Grade: Normal (0) Pt states has potential to be ?: N/A Shortness of Breath?: No Lungs auscultated PRN: No Pt is on oxygen?: No Appetite: Good Nausea/Vomiting: No Diarrhea: No Constipation: No Last BM Date: 07/03/23 Skin Condition/Temp: Warm, Dry Swelling: No Additional Notes: BP: 129/82 Temp: 36.6 ??C (97.9 ??F) Temp src: Temporal Pulse: 80 Resp: 18 SpO2: 97 % Weight: 77.1 kg (170 lb) Pain Score: 0 - No pain Treatment Patient: met treatment parameters Pre blood return: Brni Schwarz Sheldon tolerated treatment well. Patient was frequently observed and monitored throughout the administration of their treatment. Additional Notes: Post blood return: Brisk IV access post infusion: NS Patient Education Treatment Education: Information/teaching given to patient including process and procedure related to today's visit Response: Verbalizes understanding Discharge Plan Discharge instructions given to patient. Future appointments given and reviewed with treatment plan. Discharge Mode: Ambulatory Accompanied by: Spouse Discharged To: Home ET WAITER/WAITRESS documented in this encounter Plan of Treatment [...] mL/hr, Administer over 2 Hours, Once, On Sat07/03/23 at 1545, For 1 doseIndications:Neuroendocr ine carcinoma (HCC),Dehydration New Bag 07/03/2023 3:15 PM BUFFET WAITER/WAITRESS 1,000 mL 500 mL/hr documented in this encounter Orders Medications Ordered That Brett ht Not Have Been Administered Count Last Ordered Date First Ordered Date sodium chloride 0.9% bolus 1,000 mL 1 07/03 Appointment Requests Count Last Ordered Date Fi rst Ordered Date ONCBCN INFUSION APPT REQUEST 1 07/03/2023 documented in this encounter Care Teams Slurry Tank Operator Relationship Specialty Start Date End Date Julio César Briseno MD PCP - General 10/01/16 Eren Cr MD Referring Physician Medical Oncology 11/25/18 Yohana Bowen MD Radiation Oncologist Radiation Oncology 11/25/18 Alejo Mi MD [address] [place] [address] Referring Physician Nephrology 03/07/23 documented as of this encounter
--- OUTSIDE RECORDS SUMMARY | 2024-06-25 22:09 | XMS_ITS | Encounter Summary ---
Author Organization [facility] Address [address] [place] [address] Phone Care Team Providers Care Spiral Spring Winder Name Role Phone Julio César Briseno MD Primary Care Provider Eren Cr MD Unavailable [phone] Yohana Bowen MD Unavailable Alejo Mi MD Unavailable [phone] Reason for Visit * Reason Comments OP Infusion Patient here for nor mal saline infusion. Encounter Details Date Type Department Care Team (Late st Contact Info) Description 07/17/2023 3:00 PM PUNCHBOARD STUFFER Infusion [facility] Oncology [facility] Advanced Medicine 7th [place] [address] Dehydration (Primary Dx); Neuroendocrine carcinoma (HCC); Malignant neoplasm metastatic to liver (HCC); 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); Hypophosphatemia; Neuro-endocrine carcinoma (HCC) Social History Tobacco Use [...] on file Legal Sex Female 2:41 PM PUNCHBOARD STUFFER Gender Identity Not on file Sexual Orientation Straight 02/19/2021 9: 29 AM CDT Occupation Industry Job Start Date Job End Date retired Not on file Not on file Not on file documented as of this encounter Last Filed Vital Signs Vital Sign Reading Time Taken Comments Blood Pressure 138/82 07/17/2023 2:51 PM PUNCHBOARD STUFFER Pulse 98 07/17/2023 2:51 PM PUNCHBOARD STUFFER Temperature 36.6 ??C (97.9 ??F) 07/17/2023 2:51 PM CS T Respiratory Rate 18 07/17/2023 2:51 PM PUNCHBOARD STUFFER Oxygen Saturation 97% 07/17/2023 2:51 PM PUNCHBOARD STUFFER Inhaled Oxygen Concentration - - Weight 78.4 kg (172 lb 12.8 oz) 07/17/2023 2:51 PM PUNCHBOARD STUFFER Height - - Body Mass Index 30.61 06/11/2023 3:18 PM PUNCHBOARD STUFFER documented in this encounter Nursing Notes * Giovana Lund, [place] - 07/17/2023 3:00 PM CST Oncology Nursing Note [facility] ONCOLOGY Lashirley Chung is a 72 y.o. female who presents for IVF only. Nursing Assessment Nursing Assessment LOC: Alert, Awake Fatigue: Occassional Any falls since your last visit?: No Orientation: Oriented x4 Behavior: Calm Speech: Clear Language: No aphasia Vision: At baseline Peripheral Neuropathy: No Oral Mucosa Grade: Normal (0) Pt states has potential to be ?: N/A Shortness of Breath?: No Lungs auscultated PRN: No Pt is on oxygen?: No Cough: Absent Sputum Amount: None Sputum Color: None Sputum Consistency: None Appetite: Good Have You Recently Lost Weight Without Trying?: No Have you been eating poorly because of a decreased appetite?: No Malnutrition Screening Tool (MST) Score: 0 Nausea/Vomiting: No Abdomen: Soft Diarrhea: No Constipation: No Last BM Date: 07/16/23 Skin Condition/Temp: Warm, Dry Swelling: No Additional Notes: BP: 138/82 Temp: 36.6 ??C (97.9 ??F) Temp src: Oral Pulse: 98 Resp: 18 SpO2: 97 % Weight: 78.4 kg (172 lb 12.8 oz) Patient: met treatment parameters La Chung Additional Notes: Pt had nausea towards end of IVF infusion. She states this happens with every IVFshe receives. Zofran given per order on SEP Discharge Plan Discharge instructions given to patient. 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) Other malignant neoplasm of unspecified site documented in this encounter Administered Medications Inactive Administered Medications - up to 3 most recent administrations Medication Order [facility] Action Action Date Dose Rate Site ondansetron (ZOFRAN) injection 8 mg 8 mg, intravenous, Administer over 2 Minutes, Once as needed, nausea, vomiting, Starting on Sat07/17/23 at 1636, For 1 doseIndications:Hypophospha temia Given 07/17/2023 4:54 PM PUNCHBOARD STUFFER 8 mg sodium chloride 0.9% bolus 1,000 mL 1,000 mL, intravenous, at 500 mL/hr, Administer over 2 Hours, Once, On Sat07/17/23 at 1530, For 1 doseIndications:Neuroendocr ine carcinoma (HCC),Dehydration New Bag 07/17/2023 2:55 PM PUNCHBOARD STUFFER 1,000 mL 500 mL/hr documented in this encounter Orders Medications Ordered That Brett ht Not Have Been Administered Count Last Ordered Date First Ordered Date sodium chloride 0.45% bolus 90 mL 1 024 sodium chloride 0.9% bolus 90 mL 1 07/17/19 24 Appointment Requests Count Last Ordered Date Fi rst Ordered Date ONCBCN INFUSION APPT REQUEST 1 07/17/2023 documented in this encounter Care Teams Spiral Spring Winder Relationship Specialty Start Date End Date Julio César Briseno MD PCP - General 10/01/16 Eren Cr MD Referring Physician Medical Oncology 11/25/18 Yohana Bowen MD Radiation Oncologist Radiation Oncology 11/25/18 Alejo Mi MD [address] [address] Referring Physician Nephrology 03/07/23 documented as of this encounter
--- OUTSIDE RECORDS SUMMARY | 2024-06-25 22:09 | XMS_ITS | Encounter Summary ---
Author Organization [facility] Address [address] [place] [address] Phone Care Team Providers Care Anesthesiologist Assistant Certified Name Role Phone Julio César Briseno MD Primary Care Provider rEen Cr MD Unavailable [phone] Yohana Bowen MD Unavailable Alejo Mi MD Unavailable [phone] Encounter Details Date Type Department Care Team (Late st Contact Info) Description 08/07/2023 3:00 PM TITLE ATTORNEY Infusion [facility] Oncology [address] [facility] 7th [place] [id number] Hypophosphatemia (Primary Dx); Neuroendocrine carcinoma (HCC); Malignant neoplasm metastatic to liver (HCC); 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); Dehydration; Neuro-endocrine carcinoma (HCC) Social History Tobacco Use [...] on file Legal Sex Female 2:41 PM TITLE ATTORNEY Gender Identity Not on file Sexual Orientation Straight 02/19/2021 9: 29 AM CDT Occupation Industry Job Start Date Job End Date retired Not on file Not on file Not on file documented as of this encounter Last Filed Vital Signs Vital Sign Reading Time Taken Comments Blood Pressure 154/70 08/07/2023 2:50 PM TITLE ATTORNEY Pulse 101 08/07/2023 2:50 PM TITLE ATTORNEY Temperature 36.5 ??C (97.7 ??F) 08/07/2023 2:50 PM CS T Respiratory Rate 20 08/07/2023 2:50 PM TITLE ATTORNEY Oxygen Saturation 98% 08/07/2023 2:50 PM TITLE ATTORNEY Inhaled Oxygen Concentration - - Weight 75.5 kg (166 lb 6.4 oz) 08/07/2023 2:50 P M TITLE ATTORNEY Height - - Body Mass Index 29.48 06/11/2023 3:18 PM TITLE ATTORNEY documented in this encounter Nursing Notes * Caroline Kam, [place] - 08/07/2023 3:00 PM CST Oncology Nursing Note [facility] ONCOL[facility] La Chung is a 72 y.o. female who presents for treatment 33 of hydration therapy Pre-treatment Nursing Assessment Nursing Assessment LOC: Alert Constitutional: Chills Fatigue: Occassional Any falls since your last visit?: No Orientation: Oriented x4 Behavior: Calm Speech: Clear Language: No aphasia Vision: At baseline Peripheral Neuropathy: No Oral Mucosa Grade: Normal (0) Pt states has potential to be ?: No Shortness of Breath?: Yes (with exertion) Lungs auscultated PRN: No Pt is on oxygen?: No Appetite: Fair Nausea/Vomiting: Yes (intermittent, not at the moment) Diarrhea: Yes (yes, via ostomy, has been encouraged by the team to use immodium) Constipation: No Skin Condition/Temp: Warm, Dry Swelling: No Additional Notes: BP: 154/70 Temp: 36.5 ??C (97.7 ??F) Temp src: Temporal Pulse: 101 Resp: 20 SpO2: 98 % Weight: 75.5 kg (166 lb 6.4 oz) Pain Score: 0 - No pain Treatment Patient: met treatment parameters Pre blood return: Mary Schwarz Sheldon tolerated treatment well. Patient was frequently observed and monitored throughout the administration of their treatment. Additional Notes: Zofran and compazine given for comfort Post blood return: Brisk IV access post infusion: NS Patient Education Treatment Education: Information/teaching given to patient including process and procedure related to today's visit Response: Verbalizes understanding Discharge Plan Discharge instructions given to patient. Future appointments given and reviewed with treatment plan. Discharge Mode: Ambulatory Accompanied by: Discharged To: Home E ATTORNEY documented in this encounter Plan of Treatment Not on file documented as of this encounter Visit Diagnoses Diagnosis Hypophosphatemia- Primary Disorders of phosphorus metabolism Neuroendocrine carcinoma (HCC) Other malignant neoplasm of unspecified site Malignant neoplasm metastatic to 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) Dehydration Neuro-endocrine carcinoma (HCC) Other malignant neoplasm of unspecified site documented in this encounter Administered Medications Inactive Administered Medications - up to 3 most recent administrations Medication Order MAR Action Action Date Dose Rate Site ondansetron (ZOFRAN) injection 8 mg 8 mg, intravenous, Administer over 2 Minutes, Once as needed, nausea, vomiting, Starting on Sat08/07/23 at 1447, For 1 doseIndications:Hypophosph atemia Given 08/07/2023 3:24 PM TITLE ATTORNEY 8 mg prochlorperazine (COMPAZINE) injection 5 mg 5 mg, intravenous, Administer over 2 Minutes, Once, On Sat08/07/23 at 1715, For 1 doseIndications:Neuroendoc rine carcinoma (HCC) Given 08/07/2023 4:48 PM TITLE ATTORNEY 5 mg sodium chloride 0.9% bolus 1,000 mL 1,000 mL, intravenous, at 666.7 mL/hr, Administer over 90 Minutes, Once, On Sat08/07/23 at 1530, For 1 doseIndications:Hypophosph atemia,Dehydration,Neuro-e ndocrine carcinoma (HCC) New Bag 08/07/2023 2:59 PM TITLE ATTORNEY 1,000 mL 666.7 mL/hr documented in this encounter Orders Appointment Requests Count Last Ordered Date Fi rst Ordered Date ONCBCN INFUSION APPT REQUEST 1 08/07/2023 documented in this encounter Care Teams Anesthesiologist Assistant Certified Relationship Specialty Start Date End Date Julio César Briseno MD PCP - General 10/01/16 Eren Cr MD Referring Physician Medical Oncology 11/25/18 Yohana Bowen MD Radiation Oncologist Radiation Oncology 11/25/18 Alejo Mi MD [address] [address] Referring Physician Nephrology 03/07/23 documented as of this encounter
--- OUTSIDE RECORDS SUMMARY | 2024-06-25 22:09 | XMS_ITS | Encounter Summary ---
Author Organization [facility] Address [address] [place] [address] Phone Care Team Providers Care Egg Gatherer Name Role Phone Julio César Briseno MD Primary Care Provider [phone] Eren Cr MD Unavailable [phone] Yohana Bowen MD Unavailable Alejo Mi MD Unavailable [phone] Encounter Details Date Type Department Care Team (Late st Contact Info) Description 08/22/2023 Telephone [facility] Oncology [address] [place] [address] Estella Bueno Social History Tobacco Use Types Packs/Day Years [...] on file Legal Sex Female 2:41 PM AIRPLANE INSPECTOR Gender Identity Not on file Sexual Orientation Straight 02/19/2021 9: 29 AM CDT Occupation Industry Job Start Date Job End Date retired Not on file Not on file Not on file documented as of this encounter Miscellaneous Notes * Telephone Encounter - Estella Bueno - 08/22/2023 10:48 AM CST SW spouse re 08/27 appt He confirmed they would get details on mychart LANE INSPECTOR documented in this encounter Plan of Treatment Not on file documented as of this encounter Visit Diagnoses Not on filedocumented in this encounter Care Teams Egg Gatherer Relationship Specialty Start Date End Date Julio César Briseno MD PCP - General 10/01/16 Eren Cr MD Referring Physician Medical Oncology 11/25/18 Yohana Bowen MD Radiation Oncologist Radiation Oncology 11/25/18 CumingAlejo Waggoner MD [id number] [place] [address] Referring Physician Nephrology 03/07/23 documented as of this encounter
--- OUTSIDE RECORDS SUMMARY | 2024-06-25 22:09 | XMS_ITS | Encounter Summary ---
Author Organization [facility] Address [address] [place] [address] Care Team Providers Care Security Business Analyst Name Role Phone Julio César Briseno MD Primary Care Provider [phone] Eren Cr MD Unavailable [phone] Yohana Bowen MD Unavailable Alejo Mi MD Unavailable [phone] Encounter Details Date Type Department Care Team (Latest Contact Info) Description 07/25/2023 3:06 PM MIRROR POLISHER - 07/25/2023 11:59 PM MIRROR POLISHER Hospital Encounter [facility] [address] [place] [id number] Neuroendocrine carcinoma (HCC); Malignant neoplasm metastatic to [...] on file Legal Sex Female 2:41 PM MIRROR POLISHER Gender Identity Not on file Sexual Orientation [...] by mouth nightly 0.9 % sodium chloride ([facility] sodium chloride 0.9%) injectionIndicat ions:line care Infuse 10 mL into a venous catheter once a week On saturday 4 0.9 % sodium chloride (sodium chloride 0.9%) 0.9% infusion 05/22/2023 4 ascorbic acid, vitamin C, 500 mg capsuleIndicatio ns:supplement Take 1 tablet by mouth 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 Avoid Pierre Part's Wort, grapefruit products and [place] oranges while on treatment. placed on hold 09/26/22 for covid 01/29/2022 4 levothyroxine (SYNTHROID) 88 mcg tabletIndication s:Hypothyroidism due to medication Take 1 tablet (88 mcg total) by mouth head men's tennis coach before breakfast 90 tablet 1 10/12/2022 4 [...] Priority Date/Time Associated Diagnosis Comments EGFR STAT 07/25/2023 9:47 AM MIRROR POLISHER 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) DIFFERENTIAL AUTO Routine 07/25/2023 9:4 7 AM MIRROR POLISHER 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) CHROMOGRANIN A Routine 07/25/2023 9:47 AM MIRROR POLISHER 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) CBC WITH AUTO DIFFERENTIAL Routine 07/25/2023 9:47 AM MIRROR POLISHER 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) VITAMIN D 25 HYDROXY Routine 07/25/2023 9:47 AM MIRROR POLISHER 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) PHOSPHORUS Routine 07/25/2023 9:47 AM MIRROR POLISHER 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) MAGNESIUM STAT 07/25/2023 9:47 AM MIRROR POLISHER Neuro-endocrine carcinoma (HCC) LIPID PANEL Routine 07/25/2023 9:47 AM MIRROR POLISHER 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) COMPREHENSIVE METABOLIC PANEL STAT 07/25/2023 9:47 AM MIRROR POLISHER 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) documented in this encounter Results * (ABNORMAL) eGFR (07/25/2023 9:47 AM MIRROR POLISHER) eGFR 39(L) >=60 mL/min/1. 73 m2 [facility] Comment: Interpretive Data Reference Interval Normal ?>/= [...] interpretive data was last reviewed 2021. Blood 07/25/2023 9:47 AM MIRROR POLISHER 07/25/2023 9:49 AM MIRROR POLISHER us Eren Cr MD LAB BLOOD ORDERABLES Final Re sult [facility] [place] [address] * (ABNORMAL) Differential, auto (07/25/2023 9:47 AM MIRROR POLISHER) [facility] Neutrophil abs 2.0 1.5 - 6.5 K/cumm [facility] Comment:Testing performed by : [facility], [address] [place] [id number] Imm gran abs 0.0 0.0 - 0.1 K/cumm [facility] Lymphocyte abs 0.4(L) 0.8 - 3.3 K/cumm [facility] Monocyte abs 0.5 0.2 - 0.8 K/cumm [facility] Eosinophil abs 0.1 0.0 - 0.5 K/cumm [facility] Basophil abs 0.0 0.0 - 0.1 K/cumm [facility] Neutrophil pct 66.9 % [facility] Comment: Consistent with previous result Interpretive Data Percent cell count reference ranges are not reported, since discordance with absolute values may lead to misinterpretation of CBC data. Current Interpretive Data was last revised on 2017. Imm gran pct 0.3 % [facility] Comment: Interpretive Data Percent cell count reference ranges are not reported, since discordance with absolute values may lead to misinterpretation of CBC data. Current Interpretive Data was last revised on 2017. Lymphocyte pct 12.1 % [facility] Comment: Interpretive Data Percent cell count reference ranges are not reported, since discordance with absolute values may lead to misinterpretation of CBC data. Current Interpretive Data was last revised on 2017. Monocyte pct 15.4 % [facility] Comment: Interpretive Data Percent cell count reference ranges are not reported, since discordance with absolute values may lead to misinterpretation of CBC data. Current Interpretive Data was last revised on 2017. Eosinophil pct 4.6 % [facility] Comment: Interpretive Data Percent cell count reference ranges are not reported, since discordance with absolute values may lead to misinterpretation of CBC data. Current Interpretive Data was last revised on 2017. Basophil pct 0.7 % [facility] Comment: Interpretive Data Percent cell count reference ranges are not reported, since discordance with absolute values may lead to misinterpretation of CBC data. Current Interpretive Data was last revised on 2017. Blood 07/25/2023 9:47 AM MIRROR POLISHER 07/25/2023 9:49 AM MIRROR POLISHER Eren Cr MD LAB BLOOD ORDERABLES Final Re sult [facility] Department of Laboratories [place], [place] [id number] * Magnesium (07/25/2023 9:47 AM MIRROR POLISHER) Magnesium 1.5 1.4 - 2.5 mg/dL [facility] Comment:Testing performed by : [facility], [address] [place] [id number] Blood 07/25/2023 9:47 AM MIRROR POLISHER 07/25/2023 9:49 AM MIRROR POLISHER us Eren Cr MD LAB BLOOD ORDERABLES Final Re sult [facility] [place] [address] * Lipid panel (07/25/2023 9:47 AM MIRROR POLISHER) Cholesterol 138 30 - 199 mg/dL [facility] Comment: Interpretive Data Ages [...] Data was last revised on 2018. Triglycerides 108 <=149 mg/dL [facility] Comment: Interpretive Data [...] revised on 2018. HDL 50 >=40 mg/dL [facility] Comment: Interpretive Data Ages < or [...] was last revised on 2018. LDL, calculated 66 <=129 mg/dL [facility] Comment: Interpretive Data Ages < or [...] was last revised on 2018. Non-HDL Cholesterol 88 mg/dL [facility] Comment: Interpretive Data Ages [...] revised on 2018. Chol/HDL ratio 3 [facility] Blood 07/25/2023 9:47 AM MIRROR POLISHER 07/25/2023 10:37 AM MIRROR POLISHER Eren Cr MD LAB BLOOD ORDERABLES Final Re sult Performing Organization Address [facility] de Phone Number [facility] [place] [address] * Phosphorus (07/25/2023 9:47 AM MIRROR POLISHER) Phosphorus, pl 3.4 2.3 - 4.5 mg/dL [facility] Comment:Testing performed by : [facility], [address] [place] [address] Blood 07/25/2023 9:47 AM MIRROR POLISHER 07/25/2023 9:49 AM MIRROR POLISHER Eren Cr MD LAB BLOOD ORDERABLES Final Re sult Performing Organization Address [facility] de Phone Number [facility] [place] [address] * (ABNORMAL) Vitamin D 25 hydroxy (07/25/2023 9:47 AM MIRROR POLISHER) Vitamin D 25-OH 22(L) 30 - 80 ng/mL [facility] Blood 07/25/2023 9:47 AM MIRROR POLISHER 07/25/2023 10:37 AM MIRROR POLISHER Eren Cr MD LAB BLOOD ORDERABLES Final Re sult Performing Organization Address [facility]/ZIP Co de Phone Number [facility] Department [place] [address] * (ABNORMAL) CBC with auto differential (07/25/2023 9:47 AM MIRROR POLISHER) [facility] WBC 3.1(L) 3.8 - 9.9 K/cumm [facility] Comment:Testing performed by : [address] [address] Hgb 11.8(L) 11.9 - 15.5 g/dL [facility] Comment:Testing performed by : [address] [address] Hct 35.5(L) 35.6 - 45.5 % [facility] Comment:Testing performed by : [address] [address] Plt 84(L) 150 - 400 K/cumm [facility] Comment:Testing performed by : [address] [address] MPV 10.3 9.1 - 12.3 fL [facility] RBC 3.66(L) 3.90 - 5.20 M/cumm [facility] MCV 97.0(H) 81.3 - 96.4 fL [facility] MCH 32.2 27.1 - 33.3 pg [facility] MCHC 33.2 32.3 - 35.7 g/dL [facility] RDW CV 14.2 11.1 - 14.9 % [facility] RDW SD 49.9(H) 35.7 - 48.1 fL [facility] NRBC abs 0.00 0.00 - 0.01 K/cumm [facility] Blood 07/25/2023 9:47 AM MIRROR POLISHER 07/25/2023 9:49 AM MIRROR POLISHER Eren Cr MD LAB BLOOD ORDERABLES Final Re sult [facility] Department [place] [address] * (ABNORMAL) Comprehensive metabolic panel (07/25/2023 9:47 AM MIRROR POLISHER) Sodium 137 135 - 145 mmol/L [facility] Comment:Testing performed by : [facility], [address] [place] [address] Potassium, pl 4.3 3.3 - 4.9 mmol/L [facility] Chloride 107 97 - 110 mmol/L [facility] CO2 27 22 - 32 mmol/L [facility] Anion gap 3 2 - 15 mmol/L [facility] BUN 14 6 - 25 mg/dL [facility] Creatinine 1.40(H) 0.60 - 1.10 mg/dL [facility] Glucose 113 70 - 199 mg/dL [facility] Comment: Interpretive Data Fasting glucose >/= [...] interpretive data was last revised 2022. Calcium 10.3 8.5 - 10.3 mg/dL [facility] Bilirubin, total 0.7 0.1 - 1.2 mg/dL [facility] Protein, pl 6.4(L) 6.5 - 8.5 g/dL [facility] Albumin 4.1 3.5 - 5.0 g/dL [facility] Alk phos 66 40 - 130 Units/L [facility] ALT 22 7 - 45 Units/L [facility] AST 35 10 - 45 Units/L [facility] Blood 07/25/2023 9:47 AM MIRROR POLISHER 07/25/2023 9:49 AM MIRROR POLISHER us Eren Cr MD LAB BLOOD ORDERABLES Final Re sult [facility] [place] [address] * (ABNORMAL) Chromogranin A (07/25/2023 9:47 AM MIRROR POLISHER) Chromogranin A 1971(H) <93 ng/mL [facility] Comment: Impaired renal or hepatic function or treatment with proton pump inhibitors may result in artifactual elevations of Chromogranin A. ADDITIONAL INFORMATION This test was developed and its performance characteristics determined by [facility] in a manner consistent with CLIA requirements. [...] a homogeneous time-resolved immunofluorescent assay manufactured by [employer] and performed on the [employer] Kryptor Compact Plus. ? Values obtained with different assay methods or kits may be different and cannot be used interchangeably. ? Test results cannot be interpreted as absolute evidence for the presence or absence of malignant disease. Test Performed by: [place] [address] Laborer Heading: Immanuel Novak M.D. Ph.D.; CLIA# [id number] Blood 07/25/2023 9:47 AM MIRROR POLISHER 07/25/2023 10:40 AM MIRROR POLISHER us Eren Cr MD LAB BLOOD ORDERABLES Final Re sult [facility] [place] [address] documented in this encounter Visit Diagnoses Diagnosis Neuroendocrine carcinoma (HCC) Other malignant neoplasm of unspecified site Malignant neoplasm metastatic to liver (HCC) Neuro-endocrine carcinoma (HCC) Other malignant neoplasm of unspecified site documented in this encounter Care Teams Security Business Analyst Relationship Specialty Start Date End Date Julio César Briseno MD PCP - General 10/01/16 Eren Cr MD Referring Physician Medical Oncology 11/25/18 Yohana Bowen MD Radiation Oncologist Radiation Oncology 11/25/18 Alejo Mi MD [address] [place] [address] Referring Physician Nephrology 03/07/23 documented as of this encounter
--- OUTSIDE RECORDS SUMMARY | 2024-06-25 22:09 | XMS_ITS | Encounter Summary ---
Author Organization [facility] Address [address] [place] [address] Phone Care Team Providers Care Slope Hoist Operator Name Role Phone Julio César Briseno MD Primary Care Provider Eren Cr MD Unavailable [phone] Yohana Bowen MD Unavailable Alejo Mi MD Unavailable [phone] Encounter Details Date Type Department Care Team (Late st Contact Info) Description 08/14/2023 3:00 PM CONCRETE PAVING SUPERVISOR Infusion [facility] Oncology [address] [facility] 7th [place] [address] Dehydration (Primary Dx); Neuroendocrine carcinoma [...] on file Legal Sex Female 2:41 PM CONCRETE PAVING SUPERVISOR Gender Identity Not on file Sexual Orientation Straight 02/19/2021 9: 29 AM CDT Occupation Industry Job Start Date Job End Date retired Not on file Not on file Not on file documented as of this encounter Last Filed Vital Signs Vital Sign Reading Time Taken Comments Blood Pressure 137/61 08/14/2023 3:24 PM CONCRETE PAVING SUPERVISOR Pulse 73 08/14/2023 3:24 PM CONCRETE PAVING SUPERVISOR Temperature 36.3 ??C (97.3 ??F) 08/14/2023 3:24 PM CS T Respiratory Rate - - Oxygen Saturation 98% 08/14/2023 3:24 PM CONCRETE PAVING SUPERVISOR Inhaled Oxygen Concentration - - Weight 75.6 kg (166 lb 9.6 oz) 08/14/2023 3:24 P M CONCRETE PAVING SUPERVISOR Height - - Body Mass Index 29.51 06/11/2023 3:18 PM CONCRETE PAVING SUPERVISOR documented in this encounter Nursing Notes * Anne-Marie Winn, RN - 08/14/2023 3:00 PM CST Oncology Nursing Note [facility] Lashirley Chung is a 72 y.o. female who presents for Hydration. Pre-treatment Nursing Assessment Nursing Assessment LOC: Alert Constitutional: Fatigue Fatigue: Occassional Any falls since your last visit?: No Orientation: Oriented x4 Behavior: Calm Speech: Clear Language: No aphasia Peripheral Neuropathy: No Oral Mucosa Grade: Normal (0) Pt states has potential to be ?: No Shortness of Breath?: Yes (MARTINEZ) Lungs auscultated PRN: No Pt is on oxygen?: No Respiratory Effort Characteristics: Dyspnea exertion (resolves with rest) Cough: Absent Appetite: Fair What diet do you follow at home?: regular Have You Recently Lost Weight Without Trying?: No Nausea/Vomiting: Yes (uses prn Zofran and this has not helped today) Abdomen: Soft Diarrhea: Yes (Colostomy needs to empty bag 5-6x per day/taking Imodium 3-4x per day. MD is aware) Constipation: No Last BM Date: 08/14/23 (has colostomy) Skin Condition/Temp: Dry, Warm (ostomy without issues) Rash Location: denies Swelling: No Additional Notes: BP: 137/61 Temp: 36.3 ??C (97.3 ??F) Temp src: Temporal Pulse: 73 SpO2: 98 % Weight: 75.6 kg (166 lb 9.6 oz) Pain Score: 0 - No pain Treatment Patient: met treatment parameters Pre blood return: Brni Chung tolerated treatment well. Patient was frequently observed and monitored throughout the administration of their treatment. Additional Notes: patient took Zofran 8 mg at home today at 1400. Still nauseated.Order for 5 mg Compazine IVP obtained from LINE OUT MAN Tran Romero. Given and patient had relief from her nausea. Had no emesis today. Post blood return: Brisk IV access post infusion: NS Patient Education Treatment Education: Information/teaching given to patient including fall prevention, signs and symptoms of infection, symptom management, process and procedure related to today's visit, when to notify MD, and other: Patient is aware that should continue her prn Imodium and anti-emetics and notify her medical team if she is unable to eat or drink or if she becomes dizzy. Response: Verbalizes understanding Discharge Plan Discharge instructions given to patient. Future appointments given and reviewed with treatment plan. Discharge Mode: Wheelchair Accompanied by: Spouse Discharged To: Home RETE PAVING SUPERVISOR documented in this encounter Plan of [...] MAR Action Action Date Dose Rate Site prochlorperazine (COMPAZINE) injection 5 mg 5 mg, intravenous, Administer over 2 Minutes, Once as needed, nausea, vomiting, Starting on Sat08/14/23 at 1539, For 1 doseIndications:Neuroendoc rine carcinoma (HCC) Given 08/14/2023 3:47 PM CONCRETE PAVING SUPERVISOR 5 mg sodium chloride 0.9% bolus 1,000 mL 1,000 mL, intravenous, at 666.7 mL/hr, Administer over 90 Minutes, Once, On Sat08/14/23 at 1545, For 1 doseIndications:Dehydratio n,Hypophosphatemia,Neuro-e ndocrine carcinoma (HCC) New Bag 08/14/2023 3:36 PM CONCRETE PAVING SUPERVISOR 1,000 mL 666.7 mL/hr documented in this encounter Orders Appointment Requests Count Last Ordered Date Fi rst Ordered Date ONCBCN INFUSION APPT REQUEST 1 08/14/2023 documented in this encounter Care Teams Slope Hoist Operator Relationship Specialty Start Date End Date Julio César Briseno MD PCP - General 10/01/16 Eren Cr MD Referring Physician Medical Oncology 11/25/18 Yohana Bowen MD Radiation Oncologist Radiation Oncology 11/25/18 Alejo Mi MD [address] [address] Referring Physician Nephrology 03/07/23 documented as of this encounter
--- OUTSIDE RECORDS SUMMARY | 2024-06-25 22:09 | XMS_ITS | Encounter Summary ---
Author Organization [facility] Address [address] [place] [address] Phone Care Team Providers Care Stone Cutter Name Role Phone Julio César Briseno MD Primary Care Provider Eren Cr MD Unavailable [phone] Yohana Bowen MD Unavailable Alejo Mi MD Unavailable [phone] Reason for Visit * Reason Comments OP Infusion Encounter Details Date Type Department Care Team (Late st Contact Info) Description 07/10/2023 3:00 PM GOLD RECLAIMER Infusion [facility] Oncology [address] [facility] Advanced Medicine 7th [place] [address] Dehydration (Primary Dx); Neuroendocrine carcinoma [...] on file Legal Sex Female 2:41 PM GOLD RECLAIMER Gender Identity Not on file Sexual Orientation Straight 02/19/2021 9: 29 AM CDT Occupation Industry Job Start Date Job End Date retired Not on file Not on file Not on file documented as of this encounter Last Filed Vital Signs Vital Sign Reading Time Taken Comments Blood Pressure 120/69 07/10/2023 3:56 PM GOLD RECLAIMER Pulse 97 07/10/2023 3:56 PM GOLD RECLAIMER Temperature 36.5 ??C (97.7 ??F) 07/10/2023 3:56 PM CS T Respiratory Rate - - Oxygen Saturation 97% 07/10/2023 3:56 PM GOLD RECLAIMER Inhaled Oxygen Concentration - - Weight 76.7 kg (169 lb 3.2 oz) 07/10/2023 3:56 P M GOLD RECLAIMER Height - - Body Mass Index 29.97 06/11/2023 3:18 PM GOLD RECLAIMER documented in this encounter Nursing Notes * Brianda Hughes, IRVING - 07/10/2023 3:00 PM CST Oncology Nursing Note [facility] La Chung is a 72 y.o. female who presents for the following infusion: 1L NS IVF. Nursing Assessment Nursing Assessment LOC: Alert, Awake Fatigue: Occassional Any falls since your last visit?: No Peripheral Neuropathy: No Oral Mucosa Grade: Normal (0) Pt states has potential to be ?: N/A Shortness of Breath?: Yes Lungs auscultated PRN: No Pt is on oxygen?: No Respiratory Effort Characteristics: Dyspnea exertion Cough: Absent Appetite: Good Have You Recently Lost Weight Without Trying?: No Have you been eating poorly because of a decreased appetite?: No Malnutrition Screening Tool (MST) Score: 0 Nausea/Vomiting: No Abdomen: Soft Diarrhea: No Constipation: No Skin Condition/Temp: Warm, Dry Swelling: No Additional Notes: BP: 120/69 Temp: 36.5 ??C (97.7 ??F) Temp src: Temporal Pulse: 97 SpO2: 97 % Weight: 76.7 kg (169 lb 3.2 oz) Patient: does not require labs today. La Chung tolerated infusion well. Additional Notes: Discharge Plan Discharge instructions given to patient. Discharge Mode: Ambulatory Accompanied by: Spouse Discharged To: Home RECLAIMER documented in this encounter Plan of Treatment [...] mL/hr, Administer over 90 Minutes, Once, On Sat07/10/23 at 1615, For 1 doseIndications:Dehydratio n,Hypophosphatemia,Neuro-e ndocrine carcinoma (HCC) New Bag 07/10/2023 4:05 PM GOLD RECLAIMER 1,000 mL 666.7 mL/hr documented in this encounter Orders Medications Ordered That Brett ht Not Have Been Administered Count Last Ordered Date First Ordered Date sodium chloride 0.9% bolus 1,000 mL 1 07/10 Appointment Requests Count Last Ordered Date Fi rst Ordered Date ONCBCN INFUSION APPT REQUEST 1 07/10/2023 documented in this encounter Care Teams Stone Cutter Relationship Specialty Start Date End Date Julio César Briseno MD PCP - General 10/01/16 Eren Cr MD Referring Physician Medical Oncology 11/25/18 Yohana Bowen MD Radiation Oncologist Radiation Oncology 11/25/18 Alejo Mi MD [address] [place] [address] Referring Physician Nephrology 03/07/23 documented as of this encounter
--- OUTSIDE RECORDS SUMMARY | 2024-06-25 22:09 | XMS_ITS | Encounter Summary ---
Author Organization [facility] Address [address] [place] [address] Phone Care Team Providers Care Doctor Of Podiatry Name Role Phone Julio César Briseno MD Primary Care Provider [phone] Eren Cr MD Unavailable [phone] Yohana Bowen MD Unavailable RuddAlejo Ramos MD Unavailable [phone] Reason for Visit * Episode Based Medications (Routine) - Closed Specialty Diagnoses / Procedures Referred By Contac t Referred To Contact Diagnoses Neuro-endocrine carcinoma (HCC) Procedures study [id number] phase III cabozantinib Eren Cr MD [address] [place] [address] Phone: tel: fax: [facility] [address] [facility] Advanced Medicine 7th [place] [address] Phone: tel: Referral ID Status Reason Start Date Expiration Date Visits Re quested Visits Authorized [id number] Closed 06/21/2021 06/26/2024 1 99 Encounter Details Date Type Department Care Team (Latest Contact Info) Description 07/25/2023 10:00 AM ALLERGY AND IMMUNOLOGY CHIEF Office Visit [facility] Oncology [address] [place] [address] Billie Raymundo NP [address] [place] [address] Neuroendocrine carcinoma (HCC) (Primary Dx); Malignant neoplasm [...] on file Legal Sex Female 2:41 PM ALLERGY AND IMMUNOLOGY CHIEF Gender Identity Not on file Sexual Orientation Straight 02/19/2021 9: 29 AM CDT Occupation Industry Job Start Date Job End Date retired Not on file Not on file Not on file documented as of this encounter Last Filed Vital Signs Vital Sign Reading Time Taken Comments Blood Pressure 138/77 07/25/2023 9:49 AM ALLERGY AND IMMUNOLOGY CHIEF Pulse 84 07/25/2023 9:49 AM ALLERGY AND IMMUNOLOGY CHIEF Temperature 36.2 ??C (97.2 ??F) 07/25/2023 9:49 AM CS T Respiratory Rate 16 07/25/2023 9:49 AM ALLERGY AND IMMUNOLOGY CHIEF Oxygen Saturation 95% 07/25/2023 9:49 AM ALLERGY AND IMMUNOLOGY CHIEF Inhaled Oxygen Concentration - - Weight 76.7 kg (169 lb) 07/25/2023 9:49 AM ALLERGY AND IMMUNOLOGY CHIEF Height - - Body Mass Index 29.94 06/11/2023 3:18 PM ALLERGY AND IMMUNOLOGY CHIEF documented in this encounter Progress Notes * Raymundo, Billie, ENGLISH LANGUAGE ARTS TEACHER - 07/25/2023 10:00 AM CST Images from the original note were not included. MEDICAL ONCOLOGY OUTPATIENT ROV NOTE La Chung : 1950 DATE OF VISIT: 07/25/23 Oncology History Overview Note DIAGNOSIS: well differentiated [...] time, she also underwent right colectomy in [facility] OR by Dr. Greyson Reeves. Biopsy [...] 05/28/2023: Cycle 24 - 06/27/2023: Cycle 25 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) INTERVAL HISTORY: La Chung is a 72 y.o. 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 She was last seen in clinic 06/27/2023 and received Cycle 25 cabozantinib at that time. She is herefor follow up on CABINET study. She is here with her . Today, she notes: - An episode of emesis yesterday morning, with associated abdominal pain. She notes she had breakfast and took her medications which included a new BP med. [place] nauseous, took zofran, but then threw up after. [place] off since. - No fevers, chills, worsening diarrhea. - Has baseline diarrhea. No blood in stools. - Right lower back pain started in Dec after she had painted rooms in her house. 09/14 right now. Has not really taken anything for it. No urinary habit changes, no burning urgency or frequency, no weakness or numbness in her legs. REVIEW OF SYSTEMS: Review of Systems Constitutional: [...] PHYSICAL EXAM: ECOG PS: 1 VITALS: BP 138/77 Pulse 84 Temp 36.2 ??C (97.2 ??F) Resp 16 Wt 76.7 kg (169 lb) SpO2 95% BMI 29.94 kg/m?? Physical Exam Vitals reviewed. Exam conducted with a dentist/owner present. Constitutional: General: She is not in [...] is no guarding. Comments: Ostomy in place, liquid stool Musculoskeletal: Cervical back: Normal range of motion. Right lower leg: No edema. Left lower leg: No edema. Skin: General: Skin is warm and dry. Coloration: Skin is not jaundiced. Findings: No rash. Comments: Skin to legs is dry and flaky Neurological: General: No focal deficit present. Mental Status: She is alert and oriented to person, place, and time. Gait: Gait normal. Psychiatric: Behavior: Behavior normal. Thought Content: Thought content normal. Judgment: Judgment normal. LABORATORY: I personally reviewed all laboratories and discussed with patient during office visit, selected values included below. Hematology Lab History Latest Ref Rng & Units 05/02/2023 12:12 05/28/2023 06/27/2023 10:04 07/25/2023 09:47 Labs - Hematology WBC 3.8 - 9.9 K/cumm 3.3 3.8 2.8 3.1 Total Hb, POC 11.9 - 15.5 g/dL 10.9 11.6 11.2 11.8 Hct 35.6 - 45.5 % 32.8 35.3 34.1 35.5 Plt 150 - 400 K/cumm 90 94 84 84 Neutrophil abs 1.5 - 6.5 K/cumm 2.5 2.6 1.9 1.9 2.0 Lymphocytes, abs 0.8 - 3.3 K/cumm 0.3 0.5 0.3 0.3 0.4 Details More abnormal values are hidden. Newest values shown. Go to activity for more data. More values are hidden. Newest values shown. Go to activity for more data. Chem/LFT Lab History Latest Ref Rng & Units 05/02/2023 12:12 05/28/2023 06/27/2023 10:04 07/25/2023 09:47 Labs-Chem/LFT Sodium 135 - 145 mmol/L 138 137 140 137 Creatinine 0.60 - 1.10 mg/dL 1.22 1.19 1.20 1.40 Bilirubin, total 0.1 - 1.2 mg/dL 0.6 0.6 0.5 0.7 AST 10 - 45 Units/L 32 34 35 35 ALT 7 - 45 Units/L 22 25 25 22 Alk phos 40 - 130 Units/L 58 65 57 66 CrCl- Actual Body Weight (Cockcroft-Gault) 49.8 51.1 51.4 42.7 Details More abnormal values are hidden. Newest values shown. Go to activity for more data. More values are hidden. Newest values shown. Go to activity for more data. Tumor Marker History Latest Ref Rng & Units 04/04/2023 14:32 05/02/2023 12:12 05/28/2023 14:10 06/27/2023 10:04 Tumor Markers Chromogranin A <93 ng/mL [id number] 1996 RADIOGRAPHIC/DIAGNOSTIC REVIEW: CT chest abdomen pelvis with contrast 05/24/2023 1. No significant change in hepatic and peritoneal metastases. 2. Stable right supraclavicular lymph node. 3. No evidence of disease progression. CT chest abdomen pelvis with contrast 03/01/2023 1. Stable hepatic metastases and peritoneal deposits. 2. Slightly increased size of indeterminate right supraclavicular lymph nodes. Recommend attention on followup. CT chest abdomen pelvis with contrast 12/13/2022 1. Stable hepatic lesions and peritoneal deposits. [...] and peritoneal metastases. No new abdominal metastases. I have personally reviewed her image on 07/12/2022 showing the liver lesions which are stable NET metastases. CT abdomen/pelvis 04/09/2022: Stable metastatic disease [...] CABINET trial with dose 20mg daily. - She has G1 HTN today. - We reviewed her labs, notable for ANC 2.0, Hgb 11.8, PLT 84 (stable), Cr 1.4 (slightly up, not far from baseline), normal LFTs. - We will plan to proceed with cycle 26 day 1 of CABINET study, will continue on 20 mg dosing of cabozantinib. Patient is agreeable. She will receive octreotide today as well. - She will return for follow up in 4 weeks per protocol. 2. Bone metastases - Last received 04/04/2023. - No suspicious lesions on last CT. - On xgeva, last recived 04/2023. - Labs appropriate today for xgeva. 3. Diarrhea - Has chronic diarrhea since diagnosis. 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 - She states she empties her ostomy bag 5-6x/day which is normal for her. Denies bloody stools. Shestates she has not been utilizing her anti-diarrheals at home. She has been receiving weekly IVF hydration for some time. - As such, I have recommended taking Imodium scheduled TID-QID. I will reach out to her next week to see if her symptoms improve. If not, we will up-titrate and re-introduce lomitil. 4. Hypothyroidism with TSH elevated - Managed per endocrinology. - TSH/fT4 today WNL. 5. Vitamin D insufficiency/Deficiency - Vit D checked 06/11 16. Pt started on ergocalciferol [id number] un weekly. - followed by nephrology 6. Renal function - Creatinine 1.4 - follows with Nephrology - She will receive 1L IVF today 7. Right TM perforation - Follow up with ENT, s/p surgery. 8. Hyperparathyroidism - Calcium 9.5 - May be secondary to CKD, denosumab use. - On vit d supplementation. - nephrology following. 9. Eye disorder, grade 1, watery eyes - Not a reported side effect of cabozantinib, appears unrelated at this time. - F/u Ophthalmology as needed - Trial claritin or zyrtec recommended. 10. HTN - Started on losartan recently per her PCP. - G1 HTN today. My total encounter time on 07/25/2023 was 30 minutes which was spent in [...] Disease status: stable Reason for disease status: physical exam, symptoms Date of cancer disease status assessment: 07/25/23 Malignant neoplasm metastatic to liver (HCC) Cancer [...] plan Cosigned by Eren Cr MD at 07/26/2023 11:57 AM ALLERGY AND IMMUNOLOGY CHIEF RGY AND IMMUNOLOGY CHIEF RGY AND IMMUNOLOGY CHIEF RGY AND IMMUNOLOGY CHIEF RGY AND IMMUNOLOGY CHIEF documented in this encounter Plan of Treatment Scheduled Orders Name Type Priority Associated Diagnoses Orde r Schedule CBC with auto differential Lab STAT Neuro-endocrine carcinoma (HCC) Expected: 08/22/2023, Expires: 08/22/2024 Comprehensive metabolic panel Lab STAT Neuro-endocrine carcinoma (HCC) Expected: 08/22/2023, Expires: 08/22/2024 Magnesium Lab STAT Neuro-endocrine carcinoma (HCC) Expected: 08/22/2023, Expires: 08/22/2024 Phosphorus Lab STAT Neuro-endocrine carcinoma (HCC) Expected: 08/22/2023, Expires: 08/22/2024 Protein / creatinine ratio, urine, random Lab STAT Neuro-endocrine carcinoma (HCC) Expected: 08/22/2023, Expires: 08/22/2024 Lipid panel Lab Routine 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) Expected: 08/22/2023, Expires: 08/22/2024 Phosphorus Lab Routine 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) Expected: 08/22/2023, Expires: 08/22/2024 Vitamin D 25 hydroxy Lab Routine 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) Expected: 08/22/2023, Expires: 08/22/2024 CBC with auto differential Lab Routine 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) Expected: 08/22/2023, Expires: 08/22/2024 Comprehensive metabolic panel Lab STAT 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) Expected: 08/22/2023, Expires: 08/22/2024 Chromogranin A Lab Routine 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) Expected: 08/22/2023, Expires: 08/22/2024 documented as of this encounter Visit Diagnoses Diagnosis Neuroendocrine carcinoma (HCC)- Primary Other malignant neoplasm of unspecified site Malignant neoplasm metastatic to 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) Other malignant neoplasm of unspecified site documented in this encounter Historical Medications * This list may reflect changes made after this encounter. losartan (COZAAR) 25 mg tablet Take 1 tablet every day by oral route. 07/10/2023 06/20/2024 added in this encounter Orders Appointment Requests Count Last Ordered Date Fi rst Ordered Date ONCBCN INFUSION APPT REQUEST 4 08/14/2023 07/25/2023 ONCBCN CLINIC APPOINTMENT REQUEST 1 024 documented in this encounter Care Teams Doctor Of Podiatry Relationship Specialty Start Date End Date Julio César Briseno MD PCP - General 10/01/16 Eren Cr MD Referring Physician Medical Oncology 11/25/18 Yohana Bowen MD Radiation Oncologist Radiation Oncology 11/25/18 Alejo Mi MD [address] [place] [address] Referring Physician Nephrology 03/07/23 documented as of this encounter
--- OUTSIDE RECORDS SUMMARY | 2024-06-25 22:09 | XMS_ITS | Encounter Summary ---
Author Organization [facility] Address [address] [place] [address] Phone Care Team Providers Care Early Childhood Coordinator Name Role Phone Julio César Briseno MD Primary Care Provider [phone] Eren Cr MD Unavailable [phone] Yohana Bowen MD Unavailable Alejo Mi MD Unavailable [phone] Reason for Referral * MRI/CAT/PET Scan (Routine) - Closed Specialty Diagnoses / Procedures Referred By Contac t Referred To Contact Radiology Diagnoses 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) Procedures CT chest abdomen pelvis with contrast Eren Cr MD [address] [facility] [address] [place] [address] Phone: tel: fax: [address] [address] Referral ID Status Reason Start Date Expiration Date Visits Re quested Visits Authorized [id number] Closed 07/17/2023 08/15/2024 1 1 IC TANK CLEANER Encounter Details Date Type Department Care Team (Late st Contact Info) Description 07/17/2023 Orders Only [facility] Oncology [address] [place] [address] Eren Cr MD [address] [facility] [address] [place] [address] Neuroendocrine carcinoma (HCC) (Primary Dx); Malignant neoplasm [...] on file Legal Sex Female 2:41 PM SEPTIC TANK CLEANER Gender Identity Not on file Sexual Orientation Straight 02/19/2021 9: 29 AM CDT Occupation Industry Job Start Date Job End Date retired Not on file Not on file Not on file documented as of this encounter Plan of Treatment Not on file documented as of this encounter Results * CT chest abdomen pelvis with contrast (08/16/2023 11:22 AM SEPTIC TANK CLEANER) Anatomical Region Laterality Modality Body N/A Computed Tomogra phy 08/16/2023 12:3 0 PM SEPTIC TANK CLEANER Impressions 08/16/2023 12:30 PM SEPTIC TANK CLEANER 1. ??Largely stable hepatic, peritoneal, and omental metastases with the exception of one hepatic segment 4A/8 lesion which appears minimally increased in size compared to prior examination. 2. ??Stable mildly prominent right subclavicular and retroperitoneal lymph nodes. Electronically signed by: Shawn Saldaña M.D. Narrative 08/16/2023 12:30 PM SEPTIC TANK CLEANER EXAMINATION: ??Computed tomography of the chest, abdomen and pelvis with intravenous contrast HISTORY: Metastatic well-differentiated ileal neuroendocrine tumor with peritoneal, liver, and osseous metastasis. ??Assess treatment response. TECHNIQUE: ??Transaxial computed tomographic images of the chest, abdomen and pelvis ??were obtained with intravenous contrast according to the standard protocol after the uneventful administration of 75 mL Opti-Ray 350 intravenous contrast. COMPARISON: 05/24/2023 FINDINGS: ?? Chest: Right internal jugular central catheter with tip terminating at the superior cavoatrial junction. Thyroid gland is normal. No suspicious lymphadenopathy in the chest. ??The previously seen right cervical lymph node appears stable. Heart size is normal. ??There is relative hypoattenuation within the left ventricular apex which may represent sequela of remote infarct, seen on prior imaging. ??There is atherosclerosis of the thoracic aorta. 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 Small hiatal hernia. Unchanged minimal reticulations within the lung bases. Tiny triangular nodule along the right major fissure favored represent a fissural lymph node. No pleural effusion or pneumothorax. Abdomen/Pelvis: Redemonstrated multiple hepatic metastases. The majority of these lesions are unchanged with the exception of a hepatic segment 4A/8 mass measuring 3 x 3.1 cm, previously 2.6 x 2.8 cm. ??No new hepatic lesion. ??The main portal vein is patent. ??The gallbladder is absent. There is mild prominence of the extra hepatic and intrahepatic bile ducts likely secondary to reservoir effect. ??Pancreas is normal. ??Too small to characterize hypoattenuating lesions within the spleen are stable. ??Trace perinephric fluid. ??Right renal cyst. ??Kidneys are otherwise normal without hydronephrosis. ??Adrenal glands are normal. Bladder is normal. Changes of hysterectomy. ??Redemonstrated enhancing lesion centered along the superior aspect of the vaginal cuff measuring 2.7 x 3 cm, similar compared to prior examination. Loop colostomy noted within the left upper quadrant. ??There is a small parastomal hernia containing loops of nonobstructed small bowel. ??Suture anastomosis noted within the small bowel in the right hemiabdomen. There R areas of relative hyperenhancement noted within the sigmoid colon best seen at series 2, image 249 and series 2, image 245. These could potentially represent colonic diverticula with impacted stool, though given adjacent peritoneal deposit, sites of serosal metastatic disease are additional consideration. ??These were not well visualized on prior examination due to phase of contrast but may have been present. ??Additional spiculated enhancing lesion noted along the serosa of the sigmoid colon best seen at series 2, image 239 measuring 1.8 cm is similar compared to prior examination. ??Several omental nodules are also noted and unchanged best seen at series 2, image 176 Unchanged mildly prominent retroperitoneal lymph node best seen at series 2, image 165 measuring 1.1 cm. ??There are several additional unchanged mildly prominent retroperitoneal lymph nodes. ??Clips seen within a soft tissue lesion within the right retroperitoneum, best seen at series 2, image 198, possibly a metastatic retroperitoneal lymph node or a peritoneal deposit. ??Retroperitoneal nodule noted inferior to the left kidney best seen at series 2, image 205 which is indeterminate. ??Graft likely sequela of injection within the right gluteal subcutaneous cutaneous tissues. No suspicious osseous lesion. ??No definite correlate for reported osseous metastatic disease. Procedure Note Shawn Saldaña MD - 08/16/2023 EXAMINATION: Computed tomography of the chest, abdomen and pelvis with intravenous contrast HISTORY: Metastatic well-differentiated ileal neuroendocrine tumor with peritoneal, liver, and osseous metastasis. Assess treatment response. TECHNIQUE: Transaxial computed tomographic images of the chest, abdomen and pelvis were obtained with intravenous contrast according to the standard protocol after the uneventful administration of 75 mL Opti-Ray 350 intravenous contrast. COMPARISON: 05/24/2023 FINDINGS: Chest: Right internal jugular central catheter with tip terminating at the superior cavoatrial junction. Thyroid gland is normal. No suspicious lymphadenopathy in the chest. The previously seen right cervical lymph node appears stable. Heart size is normal. There is relative hypoattenuation within the left ventricular apex which may represent sequela of remote infarct, seen on prior imaging. There is atherosclerosis of the thoracic aorta. 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 Small hiatal hernia. Unchanged minimal reticulations within the lung bases. Tiny triangular nodule along the right major fissure favored represent a fissural lymph node. No pleural effusion or pneumothorax. Abdomen/Pelvis: Redemonstrated multiple hepatic metastases. The majority of these lesions are unchanged with the exception of a hepatic segment 4A/8 mass measuring 3 x 3.1 cm, previously 2.6 x 2.8 cm. No new hepatic lesion. The main portal vein is patent. The gallbladder is absent. There is mild prominence of the extra hepatic and intrahepatic bile ducts likely secondary to reservoir effect. Pancreas is normal. Too small to characterize hypoattenuating lesions within the spleen are stable. Trace perinephric fluid. Right renal cyst. Kidneys are otherwise normal without hydronephrosis. Adrenal glands are normal. Bladder is normal. Changes of hysterectomy. Redemonstrated enhancing lesion centered along the superior aspect of the vaginal cuff measuring 2.7 x 3 cm, similar compared to prior examination. Loop colostomy noted within the left upper quadrant. There is a small parastomal hernia containing loops of nonobstructed small bowel. Suture anastomosis noted within the small bowel in the right hemiabdomen. There R areas of relative hyperenhancement noted within the sigmoid colon best seen at series 2, image 249 and series 2, image 245. These could potentially represent colonic diverticula with impacted stool, though given adjacent peritoneal deposit, sites of serosal metastatic disease are additional consideration. These were not well visualized on prior examination due to phase of contrast but may have been present. Additional spiculated enhancing lesion noted along the serosa of the sigmoid colon best seen at series 2, image 239 measuring 1.8 cm is similar compared to prior examination. Several omental nodules are also noted and unchanged best seen at series 2, image 176 Unchanged mildly prominent retroperitoneal lymph node best seen at series 2, image 165 measuring 1.1 cm. There are several additional unchanged mildly prominent retroperitoneal lymph nodes. Clips seen within a soft tissue lesion within the right retroperitoneum, best seen at series 2, image 198, possibly a metastatic retroperitoneal lymph node or a peritoneal deposit. Retroperitoneal nodule noted inferior to the left kidney best seen at series 2, image 205 which is indeterminate. Graft likely sequela of injection within the right gluteal subcutaneous cutaneous tissues. No suspicious osseous lesion. No definite correlate for reported osseous metastatic disease. IMPRESSION: 1. Largely stable hepatic, peritoneal, and omental metastases with the exception of one hepatic segment 4A/8 lesion which appears minimally increased in size compared to prior examination. 2. Stable mildly prominent right subclavicular and retroperitoneal lymph nodes. Electronically signed by: Shawn Saldaña M.D. Eren Cr MD IM CT PROCEDURES Final Resul t [...] (HCC) documented in this encounter Care Teams Early Childhood Coordinator Relationship Specialty Start Date End Date Julio César Briseno MD PCP - General 10/01/16 Eren Cr MD Referring Physician Medical Oncology 11/25/18 Yohana Bowen MD Radiation Oncologist Radiation Oncology 11/25/18 Alejo Mi MD [address] [address] Referring Physician Nephrology 03/07/23 documented as of this encounter
--- OUTSIDE RECORDS SUMMARY | 2024-06-25 22:09 | XMS_ITS | Encounter Summary ---
Author Organization [facility] Address [address] [place] [address] Phone Care Team Providers Care Specimen Transporter Name Role Phone Julio César Briseno MD Primary Care Provider [phone] Eren Cr MD Unavailable [phone] Yohana Bowen MD Unavailable DaltonAlejo Ramos MD Unavailable Reason for Visit * Episode Based Medications (Routine) - Closed Specialty Diagnoses / Procedures Referred By Contac t Referred To Contact Diagnoses Neuro-endocrine carcinoma (HCC) Procedures study [id number] phase III cabozantinib Eren Cr MD [address] [place] [address] Phone: tel: fax: [facility] [address] [facility] 7th [place] [address] Phone: tel: Referral ID Status Reason Start Date Expiration Date Visits Re quested Visits Authorized [id number] Closed 06/21/2021 06/26/2024 1 99 Encounter Details Date Type Department Care Team (Latest Contact Info) Description 07/25/2023 9:30 AM FISCAL OFFICER Clinical Support [facility] Oncology [address] [place] [address] Neuro-endocrine carcinoma (HCC) Social History Tobacco Use [...] on file Legal Sex Female 2:41 PM FISCAL OFFICER Gender Identity Not on file Sexual [...] rst Ordered Date ONCBCN LAB APPOINTMENT 1 07/25/2023 documented in this encounter Care Teams Specimen Transporter Relationship Specialty Start Date End Date Julio César Briseno MD PCP - General 10/01/16 Eren Cr MD Referring Physician Medical Oncology 11/25/18 Yohana Bowen MD Radiation Oncologist Radiation Oncology 11/25/18 Alejo Mi MD [address] [place] [address] Referring Physician Nephrology 03/07/23 documented as of this encounter
--- OUTSIDE RECORDS SUMMARY | 2024-06-25 22:09 | XMS_ITS | Encounter Summary ---
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) Procedures CT chest abdomen pelvis with contrast Eren Cr MD [address] [place] [address] Phone: tel: fax: [address] [address] Referral ID Status Reason Start Date Expiration Date Visits Re quested Visits Authorized [id number] Closed 07/17/2023 08/15/2024 1 1 AND DAM REPAIRER Reason for Visit * MRI/CAT/PET Scan (Routine) - Closed Specialty Diagnoses / Procedures [facility] Referred To Contact Radiology Diagnoses 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) Procedures CT chest abdomen pelvis with contrast Eren Cr MD [address] [facility] [address] [place] [address] Phone: tel: fax: [address] [place] [address] Referral ID Status Reason Start Date Expiration Date Visits Re quested Visits Authorized [id number] Closed 07/17/2023 08/15/2024 1 1 Encounter Details Date Type Department Care Team (Latest Contact Info) Description 08/16/2023 10:39 AM LOCK AND DAM REPAIRER - 08/16/2023 11:59 PM LOCK AND DAM REPAIRER Hospital Encounter [facility] [address] [place] [id number] Eren Cr MD [address] [facility] [address] [facility] [place] [address] Neuroendocrine carcinoma (HCC); Malignant neoplasm metastatic to [...] on file Legal Sex Female 2:41 PM LOCK AND DAM REPAIRER Gender Identity Not on file Sexual [...] by mouth nightly 0.9 % sodium chloride (INV-BJ sodium chloride 0.9%) injectionIndicat ions:line care Infuse 10 mL into a venous catheter once a week On saturday 4 0.9 % sodium chloride (sodium chloride 0.9%) 0.9% infusion 05/22/2023 4 ascorbic acid, vitamin C, 500 mg capsuleIndicatio ns:supplement Take 1 tablet by mouth report writer before breakfast 07/04/2016 4 clotrimazole-bet amethasone (LOTRISONE) cream Apply 1 Application topically daily as needed (rash) 4 coenzyme E02-pqibpum E 100-5 mg-unit capsuleIndicatio ns:supplement Take 1 tablet by mouth report writer before breakfast 4 diphenoxylate-at ropine (LOMOTIL) 2.5-0.025 [...] Fluids every -Heparin to flush 4 INV-WUSM_BJH cabozantinib/maris cebo (2017-08-122/A02 1602) 20 mg tabletIndication s:cancer study Take 1 tablet (20 mg total) by mouth nightly Take on an empty stomach (no food for 2 hours before and 1 hour after each dose).?? Avoid Jas's Wort, grapefruit products and [place] oranges while on treatment. 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 ??Largely stable hepatic, peritoneal, and omental metastases with the exception of one hepatic segment 4A/8 lesion which appears minimally increased in size compared to prior examination. 2. ??Stable mildly prominent right subclavicular and retroperitoneal lymph nodes. Electronically signed by: Shawn Saldaña M.D. Narrative 08/16/2023 12:30 PM LOCK AND DAM REPAIRER EXAMINATION: ??Computed tomography of the chest, abdomen [...] by: Shawn Saldaña M.D. Eren Cr MD IMG CT PROCEDURES Final Resul t * (ABNORMAL) POCT creatinine (08/16/2023 11:03 AM LOCK AND DAM REPAIRER) Creatinine POC 1.3(H) 0.6 - 1.1 mg/dL [facility] Blood 08/16/2023 11:0 3 AM LOCK AND DAM REPAIRER 08/16/2023 11:03 AM LOCK AND DAM REPAIRER Eren Cr MD LAB POCT ORDERABLES - DEVICE Final Result [facility] [address] [place] [address] documented in this encounter Visit Diagnoses Diagnosis [...] 500 Units (5 mL), intra-catheter, Once, On Sat08/16/23 at 1130, For 1 dose, For port decannulation., Indications: Maintain Patency of Indwelling Vascular CatheterIndications:Maintai n Patency of Indwelling Vascular Catheter Given 08/16/2023 11:30 AM LOCK AND DAM REPAIRER 500 Units ioversoL (OPTIRAY 350) syringe 100 mL 100 mL, intravenous, Once in imaging, contrast, Starting on Sat08/16/23 at 1108, For 1 dose Contrast Given 08/16/2023 11:16 AM LOCK AND DAM REPAIRER 75 mL sodium chloride 0.9% flush 10-20 mL 10-20 mL, intra-catheter, As needed, line care, with each use, Starting on Sat08/16/23 at 1051, Flush volume based on line type, size, and protocol. Given 08/16/2023 11:00 AM LOCK AND DAM REPAIRER 10 mL Port documented in this encounter Care Teams Class A Truck Driver Relationship Specialty Start Date End Date Julio César Briseno MD PCP - General 10/01/16 Eren Cr MD Referring Physician Medical Oncology 11/25/18 Yohana Bowen MD Radiation Oncologist Radiation Oncology 11/25/18 Alejo Mi MD [address] [address] Referring Physician Nephrology 03/07/23 documented as of this encounter
--- OUTSIDE RECORDS SUMMARY | 2024-06-25 22:09 | XMS_ITS | Encounter Summary ---
Author Organization [facility] Address [address] [place] [address] Phone Care Team Providers Care Linux Network Administrator Name Role Phone Julio César Briseno MD Primary Care Provider [phone] Eren Cr MD Unavailable [phone] Yohana Bowen MD Unavailable [place]Alejo Ramos MD Unavailable [phone] 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) Procedures [place] OCTREOTIDE INJECTION, DEPOT Octreotide 28 Day Cycles - Carcinoid Eren Cr MD [address] [facility] [address] [place] [address] Phone: tel: fax: [facility] [address] [address] Phone: tel: fax: Referral ID Status Reason Start Date Expiration Date V isits Requested Visits Authorized [id number] Authorized 11/28/2017 02/05/2025 1 150 Encounter Details Date Type Department Care Team (Late st Contact Info) Description 07/25/2023 11:15 AM FILTER PRESS PUMPER Infusion 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 [...] on file Legal Sex Female 2:41 PM FILTER PRESS PUMPER Gender Identity Not on file Sexual Orientation [...] as needed, nausea, vomiting, Starting on Lydia 07/25/23 at 1117, For 1 doseIndications:Hypophospha temia Given 07/25/2023 11:22 AM FILTER PRESS PUMPER 8 mg sodium chloride 0.9% bolus 1,000 mL 1,000 mL, intravenous, at 500 mL/hr, Administer over 2 Hours, Once, On Lydia 07/25/23 at 1200, For 1 doseIndications:Neuroendocr ine carcinoma (HCC),Dehydration New Bag 07/25/2023 11:23 AM FILTER PRESS PUMPER 1,000 mL 500 mL/hr documented in this encounter Orders Medications Ordered That Brett ht Not Have Been Administered Count Last Ordered Date First Ordered Date denosumab (XGEVA) subcutaneo us syringe 120 mg 1 07/25/2023 octreotide LAR (SandoSTATIN LAR) extended release intramuscular injection 30 mg 1 07/25/2023 Nursing Count Last Ordered Date First Orde red Date ONCBCN NURSING COMMUNICATION [id number] 07/25 ONCBCN NURSING COMMUNICATION [id number] 1 0 07/25/2023 PHYSICIAN COMMUNICATION ORDER 1 07/25/2023 Appointment Requests Count Last Ordered Date Fi rst Ordered Date ONCBCN INJECTION APPOINTMENT REQUEST 1 07/08 documented in this encounter Care Teams Linux Network Administrator Relationship Specialty Start Date End Date Julio César Briseno MD PCP - General 10/01/16 Eren Cr MD Referring Physician Medical Oncology 11/25/18 Yohana Bowen MD Radiation Oncologist Radiation Oncology 11/25/18 Alejo Mi MD [address] [place] [address] Referring Physician Nephrology 03/07/23 documented as of this encounter
--- OUTSIDE RECORDS SUMMARY | 2024-06-25 22:09 | XMS_ITS | Encounter Summary ---
Author Organization [facility] [employer] [facility] Address [address] [place] [address] Phone Care Team Providers Care Ui Application Developer Name Role Phone Julio César Briseno MD Primary Care Provider Eren Cr MD Unavailable [phone] Yohana Bowen MD Unavailable Alejo Mi MD Unavailable [phone] Encounter Details Date Type Department Care Team (Late st Contact Info) Description 07/31/2023 3:00 PM PIPE FOREMAN Infusion [facility] Oncology [address] [facility] Advanced Medicine 7th [place] [address] Dehydration (Primary Dx); Neuroendocrine carcinoma [...] on file Legal Sex Female 2:41 PM PIPE FOREMAN Gender Identity Not on file Sexual Orientation Straight 02/19/2021 9: 29 AM CDT Occupation Industry Job Start Date Job End Date retired Not on file Not on file Not on file documented as of this encounter Last Filed Vital Signs Vital Sign Reading Time Taken Comments Blood Pressure 101/59 07/31/2023 3:07 PM PIPE FOREMAN Pulse 77 07/31/2023 3:07 PM PIPE FOREMAN Temperature 36.3 ??C (97.3 ??F) 07/31/2023 3:07 PM CS T Respiratory Rate 18 07/31/2023 3:07 PM PIPE FOREMAN Oxygen Saturation 97% 07/31/2023 3:07 PM PIPE FOREMAN Inhaled Oxygen Concentration - - Weight 75.2 kg (165 lb 12.8 oz) 07/31/2023 3:07 PM PIPE FOREMAN Height - - Body Mass Index 29.37 06/11/2023 3:18 PM PIPE FOREMAN documented in this encounter Nursing Notes * Anne-Marie Winn, RN - 07/31/2023 3:00 PM CST Oncology Nursing Note [facility] ONCOLOGY La Chung is a 72 y.o. female who presents for Hydration Pre-treatment Nursing Assessment Nursing Assessment LOC: Alert Fatigue: Occassional Any falls since your last visit?: No Orientation: Oriented x4 Behavior: Calm Speech: Clear Language: No aphasia Peripheral Neuropathy: No Oral Mucosa Grade: Normal (0) Pt states has potential to be ?: N/A Shortness of Breath?: Yes (MARTINEZ) Lungs auscultated PRN: No Pt is on oxygen?: No Respiratory Effort Characteristics: Dyspnea exertion (resolves with rest) Cough: Absent Appetite: Fair What diet do you follow at home?: regular Nausea/Vomiting: No (none today) Abdomen: Soft Diarrhea: Yes (emptying colostomy 6-8 times a day. Reviewed need to take Imodium as directed and notify medical team if no improvement/this is a persistant problem per patient/MD aware) Constipation: No Last BM Date: 07/31/23 (has coloctomy) Skin Condition/Temp: Dry, Warm Rash Location: denies Swelling: No Additional Notes: BP: 101/59 Temp: 36.3 ??C (97.3 ??F) Temp src: Oral Pulse: 77 Resp: 18 SpO2: 97 % Weight: 75.2 kg (165 lb 12.8 oz) Pain Score: 0 - No pain Treatment Patient: met treatment parameters Pre blood return: Brisk La M Vivod tolerated treatment well. Patient was frequently observed and monitored throughout the administration of their treatment. Additional Notes: 1L NS given per prn order. BP post IVF 132/70, P 81. Post blood return: Brisk IV access post infusion: NS Patient Education Treatment Education: Information/teaching given to patient including signs and symptoms of infection, symptom management, process and procedure related to today's visit, when to notify MD, and other:Patient instructed to monitor her colostomy output,take Imodium as prescribed and call medical teamif having problems. Response: Verbalizes understanding Discharge Plan Discharge instructions given to patient. Future appointments given and reviewed with treatment plan. Discharge Mode: Ambulatory Accompanied by: Spouse Discharged To: Home FOREMAN documented in this encounter Plan of Treatment [...] mL/hr, Administer over 2 Hours, Once, On Sat07/31/23 at 1600, For 1 doseIndications:Neuroendocr ine carcinoma (HCC),Dehydration New Bag 07/31/2023 3:18 PM PIPE FOREMAN 1,000 mL 500 mL/hr documented in this encounter Orders Medications Ordered That Brett ht Not Have Been Administered Count Last Ordered Date First Ordered Date sodium chloride 0.9% bolus 1,000 mL 1 07/31 Appointment Requests Count Last Ordered Date Fi rst Ordered Date ONCBCN INFUSION APPT REQUEST 1 07/31/2023 documented in this encounter Care Teams Ui Application Developer Relationship Specialty Start Date End Date Julio César Briseno MD PCP - General 10/01/16 Eren Cr MD Referring Physician Medical Oncology 11/25/18 Yohana Bowen MD Radiation Oncologist Radiation Oncology 11/25/18 Alejo Mi MD [address] [place] [address] Referring Physician Nephrology 03/07/23 documented as of this encounter
--- OUTSIDE RECORDS SUMMARY | 2024-06-25 22:09 | XMS_ITS | Encounter Summary ---
Author Organization [facility] Address [address] [place] [address] Phone Care Team Providers Care Information Services Vice President Name Role Phone Julio César Briseno MD Primary Care Provider Eren Cr MD Unavailable [phone] Yohana Bowen MD Unavailable Alejo Mi MD Unavailable [phone] Encounter Details Date Type Department Care Team (Late st Contact Info) Description 08/22/2023 Orders Only [facility] Oncology [address] [place] [address] Eren Cr MD [address] [place] [address] Neuroendocrine carcinoma (HCC) (Primary Dx); Malignant neoplasm [...] on file Legal Sex Female 2:41 PM FORMING YARDAGE CONTROL OPERATOR Gender Identity Not on file Sexual Orientation Straight 02/19/2021 9: 29 AM CDT Occupation Industry Job Start Date Job End Date retired Not on file Not on file Not on file documented as of this encounter Plan of Treatment Not on file documented as of this encounter Results * (ABNORMAL) Magnesium (08/27/2023 9:38 AM FORMING YARDAGE CONTROL OPERATOR) Magnesium 1.3(L) 1.4 - 2.5 mg/dL [facility] Comment:Testing performed by : [address] [id number] Blood 08/27/2023 9:38 AM FORMING YARDAGE CONTROL OPERATOR 08/27/2023 9:39 AM FORMING YARDAGE CONTROL OPERATOR Eren Cr MD LAB BLOOD ORDERABLES Final Re sult [facility] [place] [address] * (ABNORMAL) Chromogranin A (08/27/2023 9:38 AM FORMING YARDAGE CONTROL OPERATOR) Chromogranin A 2075(H) <93 ng/mL [facility] Comment: Impaired renal or hepatic function or treatment with proton pump inhibitors may result in artifactual elevations of Chromogranin A. ADDITIONAL INFORMATION This test was developed and its performance characteristics determined by [facility] in a manner consistent with CLIA requirements. [...] a homogeneous time-resolved immunofluorescent assay manufactured by [employer] and performed on the [employer] system [employer] Toyzor Compact Plus. ? Values obtained with different assay methods or kits may be different and cannot be used interchangeably. ? Test results cannot be interpreted as absolute evidence for the presence or absence of malignant disease. Test Performed by: [place] [address] Receiver: Immanuel Novak M.D. Ph.D.; CLIA# [id number] Blood 08/27/2023 9:38 AM FORMING YARDAGE CONTROL OPERATOR 08/27/2023 11:12 AM FORMING YARDAGE CONTROL OPERATOR Eren Cr MD LAB BLOOD ORDERABLES Final Re sult [facility] [place] [address] * (ABNORMAL) Comprehensive metabolic panel (08/27/2023 9:38 AM FORMING YARDAGE CONTROL OPERATOR) [facility] Sodium 140 135 - 145 mmol/L [facility] Comment:Testing performed by : [facility], [address] [place] [address] Potassium, pl 3.7 3.3 - 4.9 mmol/L [facility] Chloride 108 97 - 110 mmol/L [facility] CO2 26 22 - 32 mmol/L [facility] Anion gap 6 2 - 15 mmol/L [facility] BUN 10 6 - 25 mg/dL [facility] Creatinine 1.07 0.60 - 1.10 mg/dL [facility] Glucose 123 70 - 199 mg/dL [facility] Comment: Interpretive Data Fasting glucose [...] interpretive data was last revised 2022. Calcium 9.2 8.5 - 10.3 mg/dL [facility] Bilirubin, total 0.5 0.1 - 1.2 mg/dL [facility] Protein, pl 6.1(L) 6.5 - 8.5 g/dL [facility] Albumin 3.9 3.5 - 5.0 g/dL [facility] Alk phos 63 40 - 130 Units/L [facility] ALT 22 7 - 45 Units/L [facility] AST 31 10 - 45 Units/L [facility] Blood 08/27/2023 9:38 AM FORMING YARDAGE CONTROL OPERATOR 08/27/2023 9:39 AM FORMING YARDAGE CONTROL OPERATOR Eren Cr MD LAB BLOOD ORDERABLES Final Re sult [facility] Department of Laboratories [place], [place] [id number] * (ABNORMAL) CBC with auto differential (08/27/2023 9:38 AM FORMING YARDAGE CONTROL OPERATOR) [facility] WBC 2.6(L) 3.8 - 9.9 K/cumm [facility] Comment:Testing performed by : [facility], [address] [place] [address] Hgb 10.7(L) 11.9 - 15.5 g/dL [facility] Comment:Testing performed by : [facility], [address] [place] [address] Hct 33.4(L) 35.6 - 45.5 % [facility] Comment:Testing performed by : [facility], [address] [place] [address] Plt 76(L) 150 - 400 K/cumm [facility] Comment:Testing performed by : [facility], [address] [place] [address] MPV 10.1 9.1 - 12.3 fL [facility] RBC 3.37(L) 3.90 - 5.20 M/cumm [facility] MCV 99.1(H) 81.3 - 96.4 fL [facility] MCH 31.8 27.1 - 33.3 pg [facility] MCHC 32.0(L) 32.3 - 35.7 g/dL [facility] RDW CV 15.1(H) 11.1 - 14.9 % [facility] RDW SD 54.3(H) 35.7 - 48.1 fL [facility] NRBC abs 0.00 0.00 - 0.01 K/cumm [facility] Blood 08/27/2023 9:38 AM FORMING YARDAGE CONTROL OPERATOR 08/27/2023 9:39 AM FORMING YARDAGE CONTROL OPERATOR Eren Cr MD LAB BLOOD ORDERABLES Edited R esult - Final Performing Organization Address [facility] Co de Phone Number [facility] [place] [address] * (ABNORMAL) Vitamin D 25 hydroxy (08/27/2023 9:38 AM FORMING YARDAGE CONTROL OPERATOR) Vitamin D 25-OH 20(L) 30 - 80 ng/mL [facility] Blood 08/27/2023 9:38 AM FORMING YARDAGE CONTROL OPERATOR 08/27/2023 10:40 AM FORMING YARDAGE CONTROL OPERATOR Eren Cr MD LAB BLOOD ORDERABLES Final Re sult Performing Organization Address City/[facility]/ZIP Co de Phone Number [facility] [place] [address] * (ABNORMAL) Phosphorus (08/27/2023 9:38 AM FORMING YARDAGE CONTROL OPERATOR) Pathologist [facility] Phosphorus, pl 1.5(L) 2.3 - 4.5 mg/dL [facility] Comment:Testing performed by : [facility], [address] [place] [address] Blood 08/27/2023 9:38 AM FORMING YARDAGE CONTROL OPERATOR 08/27/2023 9:39 AM FORMING YARDAGE CONTROL OPERATOR Eren Cr MD LAB BLOOD ORDERABLES Final Re sult Performing Organization Address [facility]/State/[facility] Co de Phone Number [facility] [place] [address] * Lipid panel (08/27/2023 9:38 AM FORMING YARDAGE CONTROL OPERATOR) [facility] Cholesterol 137 30 - 199 mg/dL [facility] Comment: Interpretive Data Ages < [...] Data was last revised on 2018. Triglycerides 127 <=149 mg/dL [facility] Comment: Interpretive Data Ages < or [...] Data was last revised on 2018. HDL 59 >=40 mg/dL [facility] Comment: Interpretive Data Ages < or [...] was last revised on 2018. LDL, calculated 53 <=129 mg/dL [facility] Comment: Interpretive Data Ages < or [...] was last revised on 2018. Non-HDL Cholesterol 78 mg/dL [facility] Comment: Interpretive Data Ages < [...] last revised on 2018. Chol/HDL ratio 2 [facility] Blood 08/27/2023 9:38 AM FORMING YARDAGE CONTROL OPERATOR 08/27/2023 10:40 AM FORMING YARDAGE CONTROL OPERATOR Eren Cr MD LAB BLOOD ORDERABLES Final Re sult [facility] [place] [address] * Protein / creatinine ratio, urine, random (08/27/2023 9:30 AM FORMING YARDAGE CONTROL OPERATOR) Protein, ur, quant 27.5 mg/dL [facility] Comment: Interpretive Data No reference range established. Current interpretive data was last revised 2018. Creatinine Ur 218.2 mg/dL [facility] Comment: Interpretive Data No reference range established. Current interpretive data was last revised 2018. Protein/creatinin e ratio 126.0 0.0 - 180.0 mg/g CR [facility] Urine 08/27/2023 9:30 AM FORMING YARDAGE CONTROL OPERATOR 08/27/2023 10:46 AM FORMING YARDAGE CONTROL OPERATOR us Eren Cr MD LAB URINE ORDERABLES Final Re sult [facility] [place] [address] documented in this encounter Visit Diagnoses Diagnosis Neuroendocrine carcinoma (HCC)- Primary Other malignant neoplasm of unspecified site Malignant neoplasm metastatic to liver (HCC) Neuro-endocrine carcinoma (HCC) Other malignant neoplasm of unspecified site documented in this encounter Orders Appointment Requests Count Last Ordered Date Fi rst Ordered Date ONCBCN CLINIC APPOINTMENT REQUEST 1 024 ONCBCN INJECTION APPOINTMENT REQUEST 1 08/09 ONCBCN LAB APPOINTMENT 1 08/27/2023 ONCBCN TAKE HOME STUDY DRUG APPT 1 08/27/19 24 documented in this encounter Care Teams Information Services Vice President Relationship Specialty Start Date End Date Julio César Briseno MD PCP - General 10/01/16 Eren Cr MD Referring Physician Medical Oncology 11/25/18 Yohana Bowen MD Radiation Oncologist Radiation Oncology 11/25/18 Alejo Mi MD [address] [address] Referring Physician Nephrology 03/07/23 documented as of this encounter
--- OUTSIDE RECORDS SUMMARY | 2024-06-25 22:09 | XMS_ITS | Encounter Summary ---
Author Organization [facility] Address [address] [place] [address] Phone Care Team Providers Care Machining Associate Name Role Phone Julio César Briseno MD Primary Care Provider [phone] Eren Cr MD Unavailable [phone] Yohana Bowen MD Unavailable Alejo Mi MD Unavailable Encounter Details Date Type Department Care Team (Late st Contact Info) Description 06/27/2023 Telephone [facility] Oncology [address] [place] [address] Callie Hancock Social History Tobacco Use Types [...] Legal Sex Female 2:41 PM CAREER DEVELOPMENT COORDINATOR Gender Identity Not on file Sexual Orientation Straight 02/19/2021 9: 29 AM CDT Occupation Industry Job Start Date Job End Date retired Not on file Not on file Not on file documented as of this encounter Miscellaneous Notes * Telephone Encounter - Callie Hancock - 06/27/2023 11:21 AM CST Spoke with pt to inform of appts scheduled at [facility] on 07/25/22 labs at 9:30 am, ROV at 10 am, Injection and Pharmacy visit following. I let pt know that she will be able to see appt date and times on her mychart as well. ER DEVELOPMENT COORDINATOR documented in this encounter Plan of Treatment Not on file documented as of this encounter Visit Diagnoses Not on filedocumented in this encounter Care Teams Machining Associate Relationship Specialty Start Date End Date Julio César Briseno MD PCP - General 10/01/16 Eren Cr MD Referring Physician Medical Oncology 11/25/18 Yohana Bowen MD Radiation Oncologist Radiation Oncology 11/25/18 Alejo Mi MD [address] [address] Referring Physician Nephrology 03/07/23 documented as of this encounter
--- OUTSIDE RECORDS SUMMARY | 2024-06-25 22:09 | XMS_ITS | Encounter Summary ---
Author Organization [facility] Address [address] [place] [address] Phone Care Team Providers Care Ranch Manager Name Role Phone Julio César Briseno MD Primary Care Provider Eren Cr MD Unavailable Yohana Bowen MD Unavailable Alejo Mi MD Unavailable [phone] Encounter Details Date Type Department Care Team (Late st Contact Info) Description 08/06/2023 Orders Only [facility] Oncology [address] [facility] Advanced Medicine 7th [place] [address] [place] [address] Hien Jaimes, [facility] Social History Tobacco Use Types Packs/Day Years [...] on file Legal Sex Female 2:41 PM TRACK SERVICE WORKER Gender Identity Not on file Sexual Orientation Straight 02/19/2021 9: 29 AM CDT Occupation Industry Job Start Date Job End Date retired Not on file Not on file Not on file documented as of this encounter Plan of Treatment Not on file documented as of this encounter Visit Diagnoses Not on filedocumented in this encounter Care Teams Ranch Manager Relationship Specialty Start Date End Date Julio César Briseno MD PCP - General 10/01/16 Eren Cr MD Referring Physician Medical Oncology 11/25/18 Yohana Bowen MD Radiation Oncologist Radiation Oncology 11/25/18 Alejo Mi MD [address] [address] Referring Physician Nephrology 03/07/23 documented as of this encounter
--- OUTSIDE RECORDS SUMMARY | 2024-06-25 22:09 | XMS_ITS | Encounter Summary ---
Author Organization [facility] Healthcare Address [address] [place] [address] Care Team Providers Care Manager Truck Name Role Phone Julio César Briseno MD Primary Care Provider [phone] Eren Cr MD Unavailable [phone] Yohana Bowen MD Unavailable Alejo Mi MD Unavailable [phone] Encounter Details Date Type Department Care Team (Latest Contact Info) Description 08/27/2023 8:20 AM TRAIN ATTENDANT - 08/27/2023 11:59 PM TRAIN ATTENDANT Hospital Encounter [facility] [address] [place] [address] [phone] Neuroendocrine carcinoma (HCC); Malignant neoplasm metastatic to [...] on file Legal Sex Female 2:41 PM TRAIN ATTENDANT Gender Identity Not on file Sexual [...] mouth nightly 0.9 % sodium chloride ([facility] sodium chloride 0.9%) injectionIndicat ions:line care Infuse 10 mL into a venous catheter once a week On saturday 4 0.9 % sodium chloride (sodium chloride 0.9%) 0.9% infusion 05/22/2023 4 ascorbic acid, vitamin C, 500 mg capsuleIndicatio ns:supplement Take 1 tablet 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 07/04/2016 4 clotrimazole-bet amethasone (LOTRISONE) cream Apply 1 Application topically daily as needed (rash) 4 coenzyme Y22-giytvin E 100-5 mg-unit capsuleIndicatio ns:supplement Take 1 tablet 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 Avoid Thrall's Wort, grapefruit products and Brunswick oranges while on treatment. placed on hold 09/26/22 for covid 01/29/2022 4 levothyroxine (SYNTHROID) 88 mcg tabletIndication s:Hypothyroidism due to medication Take 1 tablet (88 mcg total) 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 90 tablet 1 10/12/2022 4 [...] set at 300mL/Hr once weekly.- Saturday09/14/2022 4 sodium phosphate - potassium phosphate (Y-Bsdx-MvpkhlD) 250 mg tabletIndication s:Hypophosphatem ia Take 1 tablet (250 mg total) by mouth 2 (two) times a day for 3 days 6 tablet 08/27/2023 4 triamcinolone (KENALOG) 0.1 % ointment Apply [...] Priority Date/Time Associated Diagnosis Comments EGFR STAT 08/27/2023 9:38 AM TRAIN ATTENDANT 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) DIFFERENTIAL AUTO Routine 08/27/2023 9:3 8 AM TRAIN ATTENDANT 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) CHROMOGRANIN A Routine 08/27/2023 9:38 AM TRAIN ATTENDANT 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) CBC WITH AUTO DIFFERENTIAL Routine 08/27/2023 9:38 AM TRAIN ATTENDANT 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) VITAMIN D 25 HYDROXY Routine 08/27/2023 9:38 AM TRAIN ATTENDANT 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) MANUAL DIFFERENTIAL Routine 08/27/2023 9 :38 AM TRAIN ATTENDANT 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) PHOSPHORUS Routine 08/27/2023 9:38 AM TRAIN ATTENDANT 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) MAGNESIUM STAT 08/27/2023 9:38 AM TRAIN ATTENDANT Neuro-endocrine carcinoma (HCC) LIPID PANEL Routine 08/27/2023 9:38 AM TRAIN ATTENDANT 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) COMPREHENSIVE METABOLIC PANEL STAT 08/27/2023 9:38 AM TRAIN ATTENDANT 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) PROTEIN / CREATININE RATIO, URINE, RANDOM STAT 08/27/2023 9:30 AM TRAIN ATTENDANT Neuro-endocrine carcinoma (HCC) documented in this encounter Results * (ABNORMAL) Manual Differential (08/27/2023 9:38 AM TRAIN ATTENDANT) Differential Auto [facility] RBC morphology Normal [facility] Platelet estimate Decreased( A) [facility] Blood 08/27/2023 9:38 AM TRAIN ATTENDANT 08/27/2023 9:39 AM TRAIN ATTENDANT us Eren Cr MD LAB BLOOD ORDERABLES Final Re sult [facility] [place] [address] * (ABNORMAL) eGFR (08/27/2023 9:38 AM TRAIN ATTENDANT) eGFR 55(L) >=60 mL/min/1. 73 m2 [facility] Comment: Interpretive Data Reference Interval Normal ?>/= [...] interpretive data was last reviewed 2021. Blood 08/27/2023 9:38 AM TRAIN ATTENDANT 08/27/2023 9:39 AM TRAIN ATTENDANT us Eren Cr MD LAB BLOOD ORDERABLES Final Re sult [facility] [place] [address] * (ABNORMAL) Differential, auto (08/27/2023 9:38 AM TRAIN ATTENDANT) Neutrophil abs 1.7 1.5 - 6.5 K/cumm [facility] Comment:Testing performed by : [facility], [address] [place] [phone] Imm gran abs 0.0 0.0 - 0.1 K/cumm [facility] Lymphocyte abs 0.4(L) 0.8 - 3.3 K/cumm [facility] Monocyte abs 0.4 0.2 - 0.8 K/cumm [facility] Eosinophil abs 0.1 0.0 - 0.5 K/cumm [facility] Basophil abs 0.0 0.0 - 0.1 K/cumm [facility] Neutrophil pct 63.0 % [facility] Comment: Consistent with previous result Interpretive Data Percent cell count reference ranges are not reported, since discordance with absolute values may lead to misinterpretation of CBC data. Current Interpretive Data was last revised on 2017. Imm gran pct 0.8 % [facility] Comment: Interpretive Data Percent cell count reference ranges are not reported, since discordance with absolute values may lead to misinterpretation of CBC data. Current Interpretive Data was last revised on 2017. Lymphocyte pct 16.4 % [facility] Comment: Interpretive Data Percent cell count reference ranges are not reported, since discordance with absolute values may lead to misinterpretation of CBC data. Current Interpretive Data was last revised on 2017. Monocyte pct 13.7 % [facility] Comment: Interpretive Data Percent cell count reference ranges are not reported, since discordance with absolute values may lead to misinterpretation of CBC data. Current Interpretive Data was last revised on 2017. Eosinophil pct 5.3 % [facility] Comment: Interpretive Data Percent cell count reference ranges are not reported, since discordance with absolute values may lead to misinterpretation of CBC data. Current Interpretive Data was last revised on 2017. Basophil pct 0.8 % [facility] Comment: Interpretive Data Percent cell count reference ranges are not reported, since discordance with absolute values may lead to misinterpretation of CBC data. Current Interpretive Data was last revised on 2017. Blood 08/27/2023 9:38 AM TRAIN ATTENDANT 08/27/2023 9:39 AM TRAIN ATTENDANT Eren Cr MD LAB BLOOD ORDERABLES Final Re sult Performing Organization Address [facility] Co de Phone Number [facility] [place] [address] * (ABNORMAL) Magnesium (08/27/2023 9:38 AM TRAIN ATTENDANT) Magnesium 1.3(L) 1.4 - 2.5 mg/dL [facility] Comment:Testing performed by : [facility], [address] [place] [address] Blood 08/27/2023 9:38 AM TRAIN ATTENDANT 08/27/2023 9:39 AM TRAIN ATTENDANT Eren Cr MD LAB BLOOD ORDERABLES Final Re sult Performing Organization Address [facility] Co de Phone Number [facility] [place] [address] * Lipid panel (08/27/2023 9:38 AM TRAIN ATTENDANT) Cholesterol 137 30 - 199 mg/dL [facility] Comment: Interpretive Data Ages < or = [...] revised on 2018. Triglycerides 127 <=149 mg/dL [facility] Comment: Interpretive Data Ages < or = [...] revised on 2018. HDL 59 >=40 mg/dL [facility] Comment: Interpretive Data Ages < or = [...] 2018. LDL, calculated 53 <=129 mg/dL [facility] Comment: Interpretive Data Ages [...] revised on 2018. Non-HDL Cholesterol 78 mg/dL [facility] Comment: Interpretive Data Ages < or = [...] revised on 2018. Chol/HDL ratio 2 [facility] Blood 08/27/2023 9:38 AM TRAIN ATTENDANT 08/27/2023 10:40 AM TRAIN ATTENDANT us Eren Cr MD LAB BLOOD ORDERABLES Final Re sult [facility] [place] [address] * (ABNORMAL) Phosphorus (08/27/2023 9:38 AM TRAIN ATTENDANT) [facility] Phosphorus, pl 1.5(L) 2.3 - 4.5 mg/dL [facility] Comment:Testing performed by : [facility], [address] [place] [address] Blood 08/27/2023 9:38 AM TRAIN ATTENDANT 08/27/2023 9:39 AM TRAIN ATTENDANT Eren Cr MD LAB BLOOD ORDERABLES Final Re sult Performing Organization Address City/[facility]/ZIP Co de Phone Number [facility] Department [place] [address] * (ABNORMAL) Vitamin D 25 hydroxy (08/27/2023 9:38 AM TRAIN ATTENDANT) [facility] Vitamin D 25-OH 20(L) 30 - 80 ng/mL [facility] Blood 08/27/2023 9:38 AM TRAIN ATTENDANT 08/27/2023 10:40 AM TRAIN ATTENDANT Eren Cr MD LAB BLOOD ORDERABLES Final Re sult Performing Organization Address City/[facility]/ZIP Co de Phone Number [facility] Department [place] [address] * (ABNORMAL) CBC with auto differential (08/27/2023 9:38 AM TRAIN ATTENDANT) [facility] WBC 2.6(L) 3.8 - 9.9 K/cumm [facility] Comment:Testing performed by : [facility], [address] [place] [address] Hgb 10.7(L) 11.9 - 15.5 g/dL [facility] Comment:Testing performed by : [facility], [address] [place] [address] Hct 33.4(L) 35.6 - 45.5 % [facility] Comment:Testing performed by : [facility], [address] [place] [address] Plt 76(L) 150 - 400 K/cumm [facility] Comment:Testing performed by : [facility], [address] [place] [address] MPV 10.1 9.1 - 12.3 fL [facility] RBC 3.37(L) 3.90 - 5.20 M/cumm [facility] MCV 99.1(H) 81.3 - 96.4 fL [facility] MCH 31.8 27.1 - 33.3 pg [facility] MCHC 32.0(L) 32.3 - 35.7 g/dL [facility] RDW CV 15.1(H) 11.1 - 14.9 % [facility] RDW SD 54.3(H) 35.7 - 48.1 fL [facility] NRBC abs 0.00 0.00 - 0.01 K/cumm [facility] Blood 08/27/2023 9:38 AM TRAIN ATTENDANT 08/27/2023 9:39 AM TRAIN ATTENDANT us Eren Cr MD LAB BLOOD ORDERABLES Edited R esult - Final [facility] Department [place] [address] * (ABNORMAL) Comprehensive metabolic panel (08/27/2023 9:38 AM TRAIN ATTENDANT) [facility] Sodium 140 135 - 145 mmol/L [facility] Comment:Testing performed by : [facility], [address] [place] [address] Potassium, pl 3.7 3.3 - 4.9 mmol/L [facility] Chloride 108 97 - 110 mmol/L [facility] CO2 26 22 - 32 mmol/L [facility] Anion gap 6 2 - 15 mmol/L [facility] BUN 10 6 - 25 mg/dL [facility] Creatinine 1.07 0.60 - 1.10 mg/dL [facility] Glucose 123 70 - 199 mg/dL [facility] Comment: Interpretive Data Fasting glucose >/= 126 [...] 2022. Calcium 9.2 8.5 - 10.3 mg/dL [facility] Bilirubin, total 0.5 0.1 - 1.2 mg/dL [facility] Protein, pl 6.1(L) 6.5 - 8.5 g/dL [facility] Albumin 3.9 3.5 - 5.0 g/dL [facility] Alk phos 63 40 - 130 Units/L [facility] ALT 22 7 - 45 Units/L [facility] AST 31 10 - 45 Units/L [facility] Blood 08/27/2023 9:38 AM TRAIN ATTENDANT 08/27/2023 9:39 AM TRAIN ATTENDANT us Eren Cr MD LAB BLOOD ORDERABLES Final Re sult [facility] [place] [address] * (ABNORMAL) Chromogranin A (08/27/2023 9:38 AM TRAIN ATTENDANT) Pathologist [facility] Chromogranin A 2074(H) <93 ng/mL [facility] Comment: Impaired renal or hepatic function or treatment with proton pump inhibitors may result in artifactual elevations of Chromogranin A. ADDITIONAL INFORMATION This test was developed and its performance characteristics determined by [facility] in a manner consistent with CLIA requirements. [...] a homogeneous time-resolved immunofluorescent assay manufactured by [employer] and performed on the [employer] Kryptor Compact Plus. ? Values obtained with different assay methods or kits may be different and cannot be used interchangeably. ? Test results cannot be interpreted as absolute evidence for the presence or absence of malignant disease. Test Performed by: [facility] [address] [place] [address] Print Project Manager: Immanuel Novak M.D. Ph.D.; CLIA# [id number] Blood 08/27/2023 9:38 AM TRAIN ATTENDANT 08/27/2023 11:12 AM TRAIN ATTENDANT Eren Cr MD LAB BLOOD ORDERABLES Final Re sult Performing Organization Address [facility] de Phone Number [facility] [place] [address] * Protein / creatinine ratio, urine, random (08/27/2023 9:30 AM TRAIN ATTENDANT) Protein, ur, quant 27.5 mg/dL [facility] Comment: Interpretive Data No reference range established. Current interpretive data was last revised 2018. Creatinine Ur 218.2 mg/dL [facility] Comment: Interpretive Data No reference range established. Current interpretive data was last revised 2018. 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
--- OUTSIDE RECORDS SUMMARY | 2024-06-25 22:09 | XMS_ITS | Encounter Summary ---
Author Organization [facility] [employer] [facility] Address [address] [place] [address] Phone Care Team Providers Care Child Care Centre Manager Name Role Phone Julio César Briseno MD Primary Care Provider [phone] Eren Cr MD Unavailable [phone] Yohana Bowen MD Unavailable Alejo Mi MD Unavailable [phone] Encounter Details Date Type Department Care Team (Late st Contact Info) Description 07/25/2023 Orders Only [facility] Oncology [address] [place] [address] Yoana Murray [facility] Social History Tobacco Use Types Packs/Day Years [...] on file 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 Gender Identity Not on file Sexual Orientation Straight 02/19/2021 9: 29 AM CDT Occupation Industry Job Start Date Job End Date retired Not on file Not on file Not on file documented as of this encounter Plan of Treatment Not on file documented as of this encounter Visit Diagnoses Not on filedocumented in this encounter Care Teams Child Care Centre Manager Relationship Specialty Start Date End Date Julio César Briseno MD PCP - General 10/01/16 Eren Cr MD Referring Physician Medical Oncology 11/25/18 Yohana Bowen MD Radiation Oncologist Radiation Oncology 11/25/18 Alejo Mi MD [address] [address] Referring Physician Nephrology 03/07/23 documented as of this encounter
--- OUTSIDE RECORDS SUMMARY | 2024-06-25 22:09 | XMS_ITS | Encounter Summary ---
Author Organization [facility] Address [address] [place] [address] Phone Care Team Providers Care Glove Cuffer Name Role Phone Julio César Briseno MD Primary Care Provider Eren Cr MD Unavailable [phone] Yohana Bowen MD Unavailable Alejo Mi MD Unavailable [phone] Encounter Details Date Type Department Care Team (Late st Contact Info) Description 07/25/2023 Orders Only [facility] Oncology [address] [place] [address] Eren Cr MD [address] [place] [address] Social History Tobacco Use Types Packs/Day Years [...] on file Legal 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 Gender Identity Not on file Sexual Orientation Straight 02/19/2021 9: 29 AM CDT Occupation Industry Job Start Date Job End Date retired Not on file Not on file Not on file documented as of this encounter Plan of Treatment Not on file documented as of this encounter Visit Diagnoses Not on filedocumented in this encounter Care Teams Glove Cuffer Relationship Specialty Start Date End Date Julio César Briseno MD PCP - General 10/01/16 Eren Cr MD Referring Physician Medical Oncology 11/25/18 Yohana Bowen MD Radiation Oncologist Radiation Oncology 11/25/18 Alejo Mi MD [address] [place] [address] Referring Physician Nephrology 03/07/23 documented as of this encounter
--- OUTSIDE RECORDS SUMMARY | 2024-06-25 22:09 | XMS_ITS | Encounter Summary ---
Author Organization [facility] Address [address] [place] [address] Phone Care Team Providers Care Flat Surfacer Name Role Phone Julio César Briseno MD Primary Care Provider [phone] Eren Cr MD Unavailable [phone] Yohana Bowen MD Unavailable [place] MillsAlejo Ramos MD Unavailable [phone] Reason for Visit * Episode Based Medications (Routine) - Closed Specialty Diagnoses / Procedures Referred By Contac t Referred To Contact Diagnoses Neuro-endocrine carcinoma (HCC) Procedures study [id number] phase III cabozantinib Eren Cr MD [address] [place] [address] Phone: tel: fax: [facility] [address] [facility] Advanced Medicine 7th [place] [address] Phone: tel: Referral ID Status Reason Start Date Expiration Date Visits Re quested Visits Authorized [id number] Closed 06/21/2021 06/26/2024 1 99 Encounter Details Date Type Department Care Team (Latest Contact Info) Description 08/27/2023 9:30 AM CVT RN Clinical Support [facility] Oncology [address] [place] [address] Neuro-endocrine carcinoma (HCC) Social History Tobacco Use [...] on file Legal Sex Female 2:41 PM CVT RN Gender Identity Not on file Sexual [...] rst Ordered Date ONCBCN LAB APPOINTMENT 1 08/27/2023 documented in this encounter Care Teams Flat Surfacer Relationship Specialty Start Date End Date Julio César Briseno MD PCP - General 10/01/16 Eren Cr MD Referring Physician Medical Oncology 11/25/18 Yohana Bowen MD Radiation Oncologist Radiation Oncology 11/25/18 Alejo Mi MD [address] [place] [address] Referring Physician Nephrology 03/07/23 documented as of this encounter
--- OUTSIDE RECORDS SUMMARY | 2024-06-25 22:09 | XMS_ITS | Encounter Summary ---
Author Organization [facility] Address [address] [place] [address] Phone Care Team Providers Care Carpenter Repairer Name Role Phone Julio César Briseno MD Primary Care Provider [phone] Eren Cr MD Unavailable [phone] Yohana Bowen MD Unavailable FrankfortAlejo Ramos MD Unavailable [phone] Reason for Visit * Episode Based Medications (Routine) - Closed Specialty Diagnoses / Procedures Referred By Contac t Referred To Contact Diagnoses Neuro-endocrine carcinoma (HCC) Procedures study [id number] phase III cabozantinib Eren Cr MD [address] [facility] [address] [place] [address] Phone: tel: fax: [facility] [address] [facility] Advanced Medicine 7th [place] [address] Phone: tel: Referral ID Status Reason Start Date Expiration Date Visits Re quested Visits Authorized [id number] Closed 06/21/2021 06/26/2024 1 99 Encounter Details Date Type Department Care Team (Late st Contact Info) Description 08/27/2023 10:00 AM COPY EDITOR Office Visit [facility] [address] [place] [address] Eren Cr MD [address] 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); Neuro-endocrine carcinoma (HCC); Hypophosphatemia Social History Tobacco Use Types Packs/Day [...] on file Legal Sex Female 2:41 PM COPY EDITOR Gender Identity Not on file Sexual Orientation Straight 02/19/2021 9: 29 AM CDT Occupation Industry Job Start Date Job End Date retired Not on file Not on file Not on file documented as of this encounter Last Filed Vital Signs Vital Sign Reading Time Taken Comments Blood Pressure 143/78 08/27/2023 10:01 AM COPY EDITOR Pulse 77 08/27/2023 10:01 AM COPY EDITOR Temperature 36.8 ??C (98.2 ??F) 08/27/2023 10:[address] Respiratory Rate 16 08/27/2023 10:01 AM COPY EDITOR Oxygen Saturation 99% 08/27/2023 10:01 AM COPY EDITOR Inhaled Oxygen Concentration - - Weight 78 kg (172 lb) 08/27/2023 10:01 AM COPY EDITOR Height - - Body Mass Index 30.47 06/11/2023 3:18 PM COPY EDITOR documented in this encounter Ordered Prescriptions Prescription Sig Dispense Quantity Refills Last Filled Start Date End Date sodium phosphate - potassium phosphate (K-Swcq-MurcyfI) 250 mg tabletIndications: Hypophosphatemia Take 1 tablet (250 mg total) by mouth 2 (two) times a day for 3 days 6 tablet 08/27/2023 08/28/2023 documented in this encounter Progress Notes * Billie Raymundo NP - 08/27/2023 10:00 AM CST Images from the original note were not included. MEDICAL ONCOLOGY OUTPATIENT ROV NOTE La Chung : 1950 DATE OF VISIT: 08/27/23 Oncology History Overview Note DIAGNOSIS: well differentiated [...] time, she also underwent right colectomy in [facility] OR by Dr. Greyson Reeves. 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 She was last seen in clinic 07/25/2023 and received Cycle 26 cabozantinib on CABINET study. She had scans 08/16/2023 which showed stable disease per RECIST 1.1. She did not show to her appointment on 08/22 due to pelvic pressure and leakage. She states every 5-6 weeks, she has increased rectal pressure and drainage. Drainage is mucusy, not bloody. Uses enemaswith relief. Made hemorrhoids worse. Today, she is here with her and notes: - feeling okay - some drops off blood when wiping after urination, not all the time. Painless. - stools are thicker, has emptied her bag 2x/already - no fevers, chills, SOB or chest pain. Has occasional nausea, but no vomiting - eating and drinking okay, weight is up 6lbs - no abdominal pain - no pain anywhere REVIEW OF SYSTEMS: Review of Systems Constitutional: [...] PHYSICAL EXAM: ECOG PS: 1 VITALS: BP 143/78 (BP Location: Left arm) Pulse 77 Temp 36.8 ??C (98.2 ??F) (Oral) Resp 16 Wt 78 kg (172 lb) SpO2 99% BMI 30.47 kg/m?? Physical Exam Vitals reviewed. Exam conducted with a call center rn present. Constitutional: General: She is not in [...] Lab History Latest Ref Rng & Units 05/28/2023 06/27/2023 10:04 07/25/2023 09:47 08/27/2023 09:38 Labs - Hematology WBC 3.8 - 9.9 K/cumm 3.8 2.8 3.1 2.6 Total Hb, POC 11.9 - 15.5 g/dL 11.6 11.2 11.8 10.7 Hct 35.6 - 45.5 % 35.3 34.1 35.5 33.4 Plt 150 - 400 K/cumm 94 84 84 76 Neutrophil abs 1.5 - 6.5 K/cumm 2.6 1.9 1.9 2.0 1.7 Lymphocytes, abs 0.8 - 3.3 K/cumm 0.5 0.3 0.3 0.4 0.4 Details More abnormal values are hidden. Newest values shown. Go to activity for more data. More values are hidden. Newest values shown. Go to activity for more data. Chem/LFT Lab History Latest Ref Rng & Units 06/27/2023 10:04 07/25/2023 09:47 08/16/2023 11:03 08/27/2023 09:38 Labs-Chem/LFT Sodium 135 - 145 mmol/L 140 137 140 Creatinine 0.60 - 1.10 mg/dL 1.20 1.40 1.07 Bilirubin, total 0.1 - 1.2 mg/dL 0.5 0.7 0.5 AST 10 - 45 Units/L 35 35 31 ALT 7 - 45 Units/L 25 22 22 Alk phos 40 - 130 Units/L 57 66 63 CrCl- Actual Body Weight (Cockcroft-Gault) 51.4 42.7 45.3 56.8 Tumor Marker History Latest Ref Rng & Units 05/02/2023 12:12 05/28/2023 14:10 06/27/2023 10:04 07/25/2023 09:47 Tumor Markers Chromogranin A <93 ng/mL 1736 1434 1996 1970 RADIOGRAPHIC/DIAGNOSTIC REVIEW: CT chest abdomen pelvis with [...] dose 20mg daily. - We reviewed her scans showed stable disease per RECIST 1.1. - She has G1 HTN today. - We reviewed her labs, notable for Cr 1.07, normal LFT, Mg 1.3, Phos 1.5, CGA pending, ANC 1.7, Hgb 10.7, PLT 76. - We will plan to proceed with cycle 27 day 1 of CABINET study, will continue on 20 mg dosing of cabozantinib. Patient is agreeable. She will receive octreotide today as well. - She will return for follow up in 4 weeks per protocol. 2. Bone metastases - Last received 04/04/2023. - No suspicious lesions on last CT. - On xgeva, last recived 04/2023. - Phos is low today, xgeva on hold. 3. Diarrhea - Has chronic diarrhea since [...] not, we will up-titrate and re-introduce lomitil. - She has been taking anti-diarrheal sparingly, states her stools are thickened up some and certainfoods make her stool thick as well. 4. Hypothyroidism with TSH elevated - Managed per endocrinology. - TSH/fT4 today WNL. 5. Vitamin D insufficiency/Deficiency - Vit D checked 06/11 16. Pt started on ergocalciferol 80060 un weekly. - followed by nephrology 6. Renal function - Creatinine 1.07 - follows with Nephrology - She will [...] per her PCP. - G1 HTN today. 11. Electrolyte abnormalities Mg 1.3, Phos 1.5, suspect likely 2/2 diarrhea. - Replete with 2g IV Mg today and plan for 3 days of PO phos supplements as recommended per our clinical pharmacist. - She will get repeat labs next week when she comes back for IVF. My total encounter time on 08/27/2023 was 30 minutes which was spent in the activities documented in the note. This includes time spent prior to the visit and after the visit in direct care of the patient. This time does not include time spent in any separately reportable services. Billie Raymundo NP In collaboration with Dr. Cr. Cosigned by Eren Cr MD at 08/28/2023 11:00 AM COPY EDITOR EDITOR EDITOR documented in this encounter Plan of Treatment Not on file documented as of this encounter Results * (ABNORMAL) TSH (09/26/2023 1:03 PM CDT) Thyroid Stimulating Hormone 5.57(H) 0.30 - 4.20 mcIUnit/mL Blood 09/26/2023 1:03 PM CDT 09/26/2023 3:38 PM CDT us Eren Cr MD LAB BLOOD ORDERABLES Final Re sult Performing Organization Address [facility]/ZIP Co de Phone Number [facility] Department of Laboratories [place], [place] [id number] * Magnesium (09/26/2023 1:03 PM CDT) Magnesium 1.7 1.4 - 2.5 mg/dL Comment:Testing performed by : [facility], [address] [place] [address] Blood 09/26/2023 1:03 PM CDT 09/26/2023 1:03 PM CDT Eren Cr MD LAB BLOOD ORDERABLES Final Re sult [facility] [place] [address] * (ABNORMAL) Chromogranin A (09/26/2023 1:03 PM CDT) Chromogranin A 2170(H) <93 ng/mL [facility] ref [facility] Comment: Impaired renal or hepatic function or treatment with proton pump inhibitors may result in artifactual elevations of Chromogranin A. ADDITIONAL INFORMATION This test was developed and its performance characteristics determined by [facility] in a manner consistent with CLIA [...] a homogeneous time-resolved immunofluorescent assay manufactured by [employer] and performed on the [employer] Kryptor Compact Plus. ? Values obtained with different assay methods or kits may be different and cannot be used interchangeably. ? Test results cannot be interpreted as absolute evidence for the presence or absence of malignant disease. Test Performed by: [place] [address] Machinery Engineer: Immanuel Novak M.D. Ph.D.; CLIA# [id number] Blood 09/26/2023 1:03 PM CDT 09/26/2023 4:24 PM CDT us Eren Cr MD LAB BLOOD ORDERABLES Final Re sult [facility] [place] [address] [facility] ref [facility] * (ABNORMAL) Comprehensive metabolic panel (09/26/2023 1:03 PM CDT) Pathologist [facility] [place] Sodium 138 135 - 145 mmol/L Comment:Testing performed by : [place] [address] [facility] [address] Potassium, pl 4.3 3.3 - 4.9 mmol/L [facility] Chloride 105 97 - 110 mmol/L [facility] CO2 27 22 - 32 mmol/L [facility] Anion gap 6 2 - 15 mmol/L [facility] BUN 11 6 - 25 mg/dL [facility] Creatinine 1.24(H) 0.60 - 1.10 mg/dL [facility] Glucose 95 70 - 199 mg/dL [facility] Comment: Interpretive Data Fasting glucose >/= [...] Calcium 9.8 8.5 - 10.3 mg/dL [facility] Bilirubin, total 0.7 0.1 - 1.2 mg/dL [facility] Protein, pl 6.4(L) 6.5 - 8.5 g/dL [facility] Albumin 4.1 3.5 - 5.0 g/dL [facility] Alk phos 69 40 - 130 Units/L [facility] ALT 20 7 - 45 Units/L [facility] AST 39 10 - 45 Units/L [facility] Blood 09/26/2023 1:03 PM CDT 09/26/2023 1:03 PM CDT us Eren Cr MD LAB BLOOD ORDERABLES Final Re sult [facility] Department [place] [address] * (ABNORMAL) CBC with auto differential (09/26/2023 1:03 PM CDT) WBC 3.6(L) 3.8 - 9.9 K/cumm Comment:Testing performed by : [facility], [address] [place] [address] Hgb 11.8(L) 11.9 - 15.5 g/dL [facility] Comment:Testing performed by : [facility], [address] [place] [address] Hct 35.8 35.6 - 45.5 % [facility] Comment:Testing performed by : [facility], [address] [place] [address] Plt 90(L) 150 - 400 K/cumm [facility] Comment:Testing performed by : [address] [address] MPV 11.1 9.1 - 12.3 fL [facility] RBC 3.71(L) 3.90 - 5.20 M/cumm [facility] MCV 96.5(H) 81.3 - 96.4 fL [facility] MCH 31.8 27.1 - 33.3 pg [facility] MCHC 33.0 32.3 - 35.7 g/dL [facility] RDW CV 14.9 11.1 - 14.9 % [facility] RDW SD 52.3(H) 35.7 - 48.1 fL [facility] NRBC abs 0.00 0.00 - 0.01 K/cumm [facility] Blood 09/26/2023 1:03 PM CDT 09/26/2023 1:03 PM CDT us Eren Cr MD LAB BLOOD ORDERABLES Final Re sult [facility] Department of Laboratories [place], [place] [id number] * (ABNORMAL) Vitamin D 25 hydroxy (09/26/2023 1:03 PM CDT) [facility] Vitamin D 25-OH 22(L) 30 - 80 ng/mL Blood 09/26/2023 1:03 PM CDT 09/26/2023 3:38 PM CDT Eren Cr MD LAB BLOOD ORDERABLES Final Re sult Performing Organization Address [facility] Co de Phone Number [facility] [place] [address] * Phosphorus (09/26/2023 1:03 PM CDT) Phosphorus, pl 2.8 2.3 - 4.5 mg/dL Comment:Testing performed by : [facility], [address] [place] [address] Blood 09/26/2023 1:03 PM CDT 09/26/2023 1:03 PM CDT Eren Cr MD LAB BLOOD ORDERABLES Final Re sult Performing Organization Address [facility] de Phone Number [facility] [place] [address] * (ABNORMAL) Lipid panel (09/26/2023 1:03 PM CDT) Pathologist [facility] [place] Cholesterol 136 30 - 199 mg/dL Comment: [...] revised on 2018. Triglycerides 173(H) <=149 mg/dL [facility] Comment: Interpretive Data Ages < or [...] revised on 2018. HDL 56 >=40 mg/dL [facility] Comment: Interpretive Data [...] 2018. LDL, calculated 45 <=129 mg/dL [facility] Comment: Interpretive [...] revised on 2018. Chol/HDL ratio 2 [facility] Blood 09/26/2023 1:03 PM CDT 09/26/2023 3:38 PM CDT us Eren Cr MD LAB BLOOD ORDERABLES Final Re sult [facility] [place] [address] * (ABNORMAL) Basic metabolic panel (09/04/2023 10:29 AM COPY EDITOR) Sodium 141 135 - 145 mmol/L [facility] Comment:Testing performed by : [facility], [address] [facility] [phone] Potassium, pl 4.1 3.3 - 4.9 mmol/L [facility] Comment:Testing performed by : [facility], [address] [place] [phone] Chloride 108 97 - 110 mmol/L [facility] Comment:Testing performed by : [facility], [address] [place] [phone] CO2 26 22 - 32 mmol/L [facility] Comment:Testing performed by : [facility], [address] [place] [phone] Anion gap 7 2 - 15 mmol/L [facility] Comment:Testing performed by : [facility], [address] [place] [phone] BUN 14 6 - 25 mg/dL [facility] Comment:Testing performed by : [facility], [address] [place] [phone] Creatinine 1.03 0.60 - 1.10 mg/dL [facility] Comment:Testing performed by : [facility], [address] [place] [phone] Glucose 78 70 - 199 mg/dL [facility] Comment: Interpretive Data Fasting glucose >/= [...] was last revised 2022. Testing performed by: [facility], [address] [place] [phone] Calcium 10.5(H) 8.5 - 10.3 mg/dL [facility] Comment:Testing performed by : [facility], [address] [place] [phone] Blood 09/04/2023 10:2 9 AM COPY EDITOR 09/04/2023 10:31 AM COPY EDITOR us Eren Cr MD LAB BLOOD ORDERABLES Final Re sult [facility] [place] [address] * Phosphorus (09/04/2023 10:29 AM COPY EDITOR) Phosphorus, pl 4.2 2.3 - 4.5 mg/dL [facility] Comment:Testing performed by : [facility], [address] [place] [phone] Blood 09/04/2023 10:2 9 AM COPY EDITOR 09/04/2023 10:31 AM COPY EDITOR Eren Cr MD LAB BLOOD ORDERAB[place] [address] * Magnesium (09/04/2023 10:29 AM COPY EDITOR) Pathologist [facility] [place] Magnesium 1.6 1.4 - 2.5 mg/dL [facility] Comment:Testing performed by : [facility], [address] [place] [phone] Blood 09/04/2023 10:2 9 AM COPY EDITOR 09/04/2023 10:31 AM COPY EDITOR us Eren Cr MD LAB BLOOD ORDERABLES Final Re sult [facility] [place] [address] documented in this encounter Visit Diagnoses Diagnosis Neuroendocrine carcinoma (HCC)- Primary Other malignant neoplasm of unspecified site Malignant neoplasm metastatic to 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) Other malignant neoplasm of unspecified site Hypophosphatemia Disorders of phosphorus metabolism documented in this encounter Orders Appointment Requests Count Last Ordered Date Fi rst Ordered Date ONCBCN INFUSION APPT REQUEST 4 10/02/2023 09/04/2023 ONCBCN CLINIC APPOINTMENT REQUEST 2 024 08/27/2023 ONCBCN INJECTION APPOINTMENT REQUEST 1 09/06 ONCBCN LAB APPOINTMENT 2 09/26/202309/04 ONCBCN TAKE HOME STUDY DRUG APPT 1 09/26/19 24 documented in this encounter Care Teams Carpenter Repairer Relationship Specialty Start Date End Date Julio César Briseno MD PCP - General 10/01/16 Eren Cr MD Referring Physician Medical Oncology 11/25/18 Yohana Bowen MD Radiation Oncologist Radiation Oncology 11/25/18 Alejo Mi MD [address] [address] Referring Physician Nephrology 03/07/23 documented as of this encounter
--- OUTSIDE RECORDS SUMMARY | 2024-06-25 22:09 | XMS_ITS | Encounter Summary ---
Author Organization [facility] Healthcare Address [address] [place] [address] Care Team Providers Care Cad Intern Name Role Phone Julio César Briseno MD Primary Care Provider [phone] Eren Cr MD Unavailable Yohana Bowen MD Unavailable Alejo Mi MD Unavailable [phone] Encounter Details Date Type Department Care Team (Latest Contact Info) Description 08/22/2023 11:25 AM MANAGER REQUIREMENTS - 08/22/2023 11:59 PM MANAGER REQUIREMENTS Hospital Encounter [facility] [address] [place] [phone] Neuroendocrine carcinoma (HCC); Malignant neoplasm metastatic to [...] file Legal Sex Female 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 REQUIREMENTS Gender Identity Not on file Sexual Orientation [...] nightly 0.9 % sodium chloride ([facility] sodium chloride 0.9%) injectionIndicat ions:line care Infuse 10 mL into a venous catheter once a week On saturday 4 0.9 % sodium chloride (sodium chloride 0.9%) 0.9% infusion 05/22/2023 4 ascorbic acid, vitamin C, 500 mg capsuleIndicatio ns:supplement Take 1 tablet by mouth electrical design engineer before breakfast 07/04/2016 4 clotrimazole-bet amethasone (LOTRISONE) cream Apply 1 Application topically daily as needed (rash) 4 coenzyme [id number] 100-5 mg-unit capsuleIndicatio ns:supplement Take 1 tablet by mouth electrical design engineer before breakfast 4 diphenoxylate-at ropine (LOMOTIL) 2.5-0.025 [...] week Fluids every -Heparin to flush 4 INV-[facility] cabozantinib/maris cebo (2018-02-122/A02 1602) 20 mg tabletIndication s:cancer study Take 1 tablet (20 mg total) by mouth nightly Take on an empty stomach (no food for 2 hours before and 1 hour after each dose).?? Avoid Jas's Wort, grapefruit products and [place] oranges while on treatment. placed on hold 09/26/22 for covid 01/29/2022 4 levothyroxine (SYNTHROID) 88 mcg tabletIndication s:Hypothyroidism due to medication Take 1 tablet (88 mcg total) by mouth electrical design engineer before breakfast 90 tablet 1 10/12/2022 4 [...] Type Priority Associated Diagnoses Orde r Schedule Chromogranin A Lab Routine 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) Once for 1 Occurrences starting 08/22/2023 until 08/22/2023 Comprehensive metabolic panel Lab Routine 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) Once for 1 Occurrences starting 08/22/2023 until 08/22/2023 CBC with auto differential Lab Routine 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) Once for 1 Occurrences starting 08/22/2023 until 08/22/2023 Vitamin D 25 hydroxy Lab Routine 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) Once for 1 Occurrences starting 08/22/2023 until 08/22/2023 Phosphorus Lab Routine 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) Once for 1 Occurrences starting 08/22/2023 until 08/22/2023 Lipid panel Lab Routine 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) Once for 1 Occurrences starting 08/22/2023 until 08/22/2023 Protein / creatinine ratio, urine, random Lab Routine Neuro-endocrine carcinoma (HCC) Once for 1 Occurrences starting 08/22/2023 until 08/22/2023 Phosphorus Lab Routine Neuro-endocrine carcinoma (HCC) Once for 1 Occurrences starting 08/22/2023 until 08/22/2023 Magnesium Lab Routine Neuro-endocrine carcinoma (HCC) Once for 1 Occurrences starting 08/22/2023 until 08/22/2023 Comprehensive metabolic panel Lab Routine Neuro-endocrine carcinoma (HCC) Once for 1 Occurrences starting 08/22/2023 until 08/22/2023 CBC with auto differential Lab Routine Neuro-endocrine carcinoma (HCC) Once for 1 Occurrences starting 08/22/2023 until 08/22/2023 documented as of this encounter Visit Diagnoses Diagnosis Neuroendocrine carcinoma (HCC) Other malignant neoplasm of unspecified site Malignant neoplasm metastatic to liver (HCC) Neuro-endocrine carcinoma (HCC) Other malignant neoplasm of unspecified site documented in this encounter Care Teams Cad Intern Relationship Specialty Start Date End Date Julio César Briseno MD PCP - General 10/01/16 Eren Cr MD Referring Physician Medical Oncology 11/25/18 Yohana Bowen MD Radiation Oncologist Radiation Oncology 11/25/18 Alejo Mi MD [address] [facility] [address] [place] [address] Referring Physician Nephrology 03/07/23 documented as of this encounter
--- OUTSIDE RECORDS SUMMARY | 2024-06-25 22:10 | XMS_ITS | Encounter Summary ---
Author Organization [facility] Address [address] [place] [address] Care Team Providers Care Therapeutic Massage Technician Name Role Phone Julio César Briseno MD Primary Care Provider [phone] Eren Cr MD Unavailable [phone] Yohana Bowen MD Unavailable Alejo Mi MD Unavailable [phone] Encounter Details Date Type Department Care Team (Late st Contact Info) Description 06/19/2023 Home Care Visit [facility] [address] [address] [address] [place] [address] Luciano Howard RN SN VIRTUAL NON OASIS DISCHARGE Social History Tobacco Use Types Packs/Day Years [...] on file 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 Gender Identity Not on file Sexual Orientation Straight 02/19/2021 9: 29 AM CDT Occupation Industry Job Start Date Job End Date retired Not on file Not on file Not on file documented as of this encounter Plan of Treatment Not on file documented as of this encounter Visit Diagnoses Not on filedocumented in this encounter Home Health Visit - Care Plan Visit Details Visit Type -SN Virtual Non-O ASIS Discharge Discipline -Fci Problems Problem Description Start Date Status Goals Interventions Medications Disciplines: Fci Management of IV Medications 05/08/2023 Active - 1 problem intervention scheduled/documen omar in this visit Safety concerns Disciplines: Fci Safety needs related to infusion administration 05/08/2023 Active - 1 problem intervention scheduled/documen omar in this visit Learning/Teachin g Needs - IV Therapy Disciplines: Fci Teaching and learning needs for performing home IV therapy 05/08/2023 Active - 6 problem interventions scheduled/documen omar in this visit Monitor patient's vital signs every home health visit Disciplines: SN, PT, OT, FIELD ACCOUNT MANAGER, GOLF INSTRUCTOR, Skilled Disciplines Monitor patient's vital signs every home health visit. 05/08/2023 Active 1 goal linked to scheduled/docume nted intervention 1 goal intervention scheduled/documen omar in this visit Infection Prevention Disciplines: Skilled Disciplines Infection Prevention 05/08/2023 Active 1 goal linked to scheduled/docume nted intervention 2 goal interventions scheduled/documen omar in this visit Safety concerns Disciplines: Skilled Disciplines Alteration in safety 05/08/2023 Active 1 goal linked to scheduled/docume nted intervention 2 goal interventions scheduled/documen omar in this visit Goals Goal Associated Problem Outcome Goal Met? Visit Notes Measure vital signs during every home health visit during episode of care Description: Home front desk auxiliary to measure vital signs during every home health visit during episode of care. Monitor patient's vital signs every home health visit No Verbalize signs of infection Description: Patient/caregiver will demonstrate knowledge of infection prevention strategies by verbalizing signs and symptoms of infection. Infection Prevention No Demonstrate use of safety precautions Description: Patient/caregiver maintains safe home environment as evidenced by remaining free from injury and demonstrates use of safety precautions. Safety concerns No Interventions Intervention Associated Problem/Goal Status Variance Visit Notes Instruct medications Description: Instruct patient/caregiver in medication administration, purpose, dosages, preparation, scheduling, side effects, food/drug interactions, storage, drug allergies, and potential complications. Medications instructed on: Infuse 1000ml of Normal Saline solution once weekly via CADD Coreas pump over 3 hours at 300ml/hour Problem:Medications Scheduled Instruct on IV complications Description: Instruct patient/caregiver on how to manage breaks in line, signs/symptoms of complications, who to contact for complications and how to contact the nurse, MD and infusion service Problem:Safety concerns Scheduled Instruct on IV supplies Description: Instruct patient/caregiver in how to gather supplies, how to restock IV supplies in the home, prepare supplies, administer IV medication and disconnect IV medication, inspecting solution and supplies before infusing, and waste disposal. Problem:Learning/Teaching Needs - IV Therapy Scheduled Instruct Infection Prevention Description: Instruct patient/caregiver in strategies to prevent infection: Instruct patient/caregiver on how to recognize signs and symptoms of infection and when to notify HH nurse and/or physician. Problem:Learning/Teaching Needs - IV Therapy Scheduled IV Administration Description: Skilled Nurse to instruct patient/caregiver on how to properly administer medication saline and heparin. Skilled Nurse to instruct patient/caregiver to administer IV medication as ordered including saline and heparin flushes. Reason for Therapy: Infuse 1000ml of Normal Saline solution once weekly via CADD Coreas pump over 3 hours at 300ml/hour Problem:Learning/Teaching Needs - IV Therapy Scheduled Dressing change Description: Skilled Nurse to instruct patient/caregiver on dressing change frequency. Central venous line dressing to be changed 48 hours if there is gauze under the occlusive dressing, dressing is soiled or non-occlusive. Weekly IV site dressing changes to be performed if no issues. Securement device to be used with appropriate lines. Skilled Nurse to instruct patient/caregiver on the purpose of doing measurements of line migration and arm circumference weekly and PRN. Type of line: Maintain IV access Port with 10ml normal saline and 5ml heparin 500units/5ml for patency per established protocol. Problem:Learning/Teaching Needs - IV Therapy Scheduled IV Access Care/Maintenance Description: Skilled Nurse to change line dressing change within 48 hours if there is gauze under the occlusive dressing, dressing is soiled, or non-occlusive. Weekly IV site dressing changes to be performed if no issues. Skilled Nurse to measure line migration and arm circumference at SOC and weekly with dressing change. Skilled Nurse to place disinfecting caps to the end of each line upon completion of infusion/flushes. Problem:Learning/Teaching Needs - IV Therapy Scheduled Instruct on IV flush Description: Instruct patient/caregiver in how to perform flushing of IV line according to MD orders or protocol. Problem:Learning/Teaching Needs - IV Therapy Scheduled Monitor Vital Signs Description: Monitor blood pressure, pulse, oxygen saturation, respirations Problem:Monitor patient's vital signs every home health visit Goal:Measure vital signs during every home health visit during episode of care Scheduled Educate Patient on Infection Prevention Description: Instruct patient on signs and symptoms of infection IE: fever, odor, change in color, increased amount of drainage, purulent drainage, warmth. Problem:Infection Prevention Goal:Verbalize signs of infection Scheduled Educate Family on Infection Prevention Description: Instructed family on signs and symptoms of infection IE: fever, odor, change in color, increased amount of drainage, purulent drainage, warmth. Problem:Infection Prevention Goal:Verbalize signs of infection Scheduled Instruct Fall Prevention Description: Instruct patient/caregiver in methods to prevent falls Problem:Safety concerns Goal:Demonstrate use of safety precautions Scheduled Assess safety Description: Assess patient safety Problem:Safety concerns Goal:Demonstrate use of safety precautions Scheduled documented in this encounter Care Teams Therapeutic Massage Technician Relationship Specialty Start Date End Date Julio César Briseno MD PCP - General 10/01/16 Eren Cr MD Referring Physician Medical Oncology 11/25/18 Yohana Bowen MD Radiation Oncologist Radiation Oncology 11/25/18 Alejo Mi MD [address] [facility] [address] [place] [address] Referring Physician Nephrology 03/07/23 documented as of this encounter
--- OUTSIDE RECORDS SUMMARY | 2024-06-25 22:10 | XMS_ITS | Encounter Summary ---
Author Organization [facility] Address [address] [place] [address] Phone Care Team Providers Care Catalog Specialist Name Role Phone Julio César Briseno MD Primary Care Provider Eren Cr MD Unavailable [phone] Yohana Bowen MD Unavailable Alejo Mi MD Unavailable [phone] Encounter Details Date Type Department Care Team (Late st Contact Info) Description 05/28/2023 Orders Only [facility] Oncology [address] [place] [address] Eren Cr MD [address] [place] [address] Hematuria, unspecified type (Primary Dx); Hypothyroidism due to medication; CINV (chemotherapy-induced nausea and vomiting) Social History Tobacco Use Types Packs/Day Years [...] more drinks on one occasion? 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 pH, urine 5.5 [facility] Comment: Interpretive Data ? Urine pH is affected by diet, medications, systemic acid-base disturbances, and renal tubular function. ??pH may affect urinary stone formation. ??For example, urine pH below 6.0 may help reduce the tendency for calcium phosphate stones and pH greater than 6.0 may reduce the tendency for uric acid stone formation. Source: [facility] QoL Meds Current Interpretive Data was last revised on 2017 Protein, ur ql Trace Negative [facility] Glucose, ur ql Negative Negative [facility] Ketones, ur Negative Negative [facility] Bilirubin, ur Negative Negative [facility] Blood, ur Negative Negative [facility] Urobilinogen, ur <2.0 <2.0 mg/dL [facility] Nitrite, ur Negative Negative [facility] Leukocyte esterase, ur Negative Negative [facility] UA reflex comment Reflex conditions for microscopic UA and culture not met. [facility] Urine, clean voided 05/28/2023 2:00 PM LIFEGUARD 05/28/2023 3:43 PM LIFEGUARD Eren Cr MD LAB MICROBIOLOGY - GENERAL OR DERABLES Final Result [facility] Department of Laboratories [place], [place] [id number] documented in this encounter Visit Diagnoses Diagnosis Hematuria, unspecified type- Primary Hypothyroidism due to medication CINV (chemotherapy-induced nausea and vomiting) documented in this encounter Care Teams Catalog Specialist Relationship Specialty Start Date End Date Julio César Briseno MD PCP - General 10/01/16 Eren Cr MD Referring Physician Medical Oncology 11/25/18 Yohana Bowen MD Radiation Oncologist Radiation Oncology 11/25/18 Alejo Mi MD [address] [address] Referring Physician Nephrology 03/07/23 documented as of this encounter
--- OUTSIDE RECORDS SUMMARY | 2024-06-25 22:10 | XMS_ITS | Encounter Summary ---
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 [address] [facility] Advanced Medicine 7th [place] [address] Phone: tel: Referral ID Status Reason Start Date Expiration Date Visits Re quested Visits Authorized [id number] Closed 06/21/2021 06/26/2024 1 99 Encounter Details Date Type Department Care Team (Latest Contact Info) Description 06/27/2023 10:00 AM WIRE SPRING RELAY ADJUSTER Clinical Support 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
--- OUTSIDE RECORDS SUMMARY | 2024-06-25 22:10 | XMS_ITS | Encounter Summary ---
Author Organization [facility] Address [address] [place] [address] Phone Care Team Providers Care Wellness Assistant Name Role Phone Julio César Briseno MD Primary Care Provider [phone] Eren Cr MD Unavailable [phone] Yohana Bowen MD Unavailable ProsperityAlejo Ramos MD Unavailable [phone] Reason for Visit * Episode Based Medications (Routine) - Closed Specialty Diagnoses / Procedures Referred By Contac t Referred To Contact Diagnoses Neuro-endocrine carcinoma (HCC) Procedures study [id number] phase III cabozantinib Eren Cr MD [address] [facility] [address] [place] [address] Phone: tel: fax: [facility] and [facility] [address] [facility] Advanced Medicine 7th [place] [address] Phone: tel: Referral ID Status Reason Start Date Expiration Date Visits Re quested Visits Authorized [id number] Closed 06/21/2021 06/26/2024 1 99 Encounter Details Date Type Department Care Team (Late st Contact Info) Description 05/28/2023 11:30 AM SHELL COREMAKER Office Visit [facility] [address] [place] [address] Billie Raymundo NP [address] [place] [address] 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) (Primary Dx); 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 (HCC); Neuroendocrine carcinoma (HCC); Neuro-endocrine carcinoma (HCC); CINV (chemotherapy-induced nausea and vomiting); Hypophosphatemia; Dehydration Social History Tobacco Use Types Packs/Day [...] on file Legal Sex Female 2:41 PM SHELL COREMAKER Gender Identity Not on file Sexual Orientation Straight 02/19/2021 9: 29 AM CDT Occupation Industry Job Start Date Job End Date retired Not on file Not on file Not on file documented as of this encounter Last Filed Vital Signs Vital Sign Reading Time Taken Comments Blood Pressure 135/78 05/28/2023 11:37 AM SHELL COREMAKER Pulse 88 05/28/2023 11:37 AM SHELL COREMAKER Temperature 36.6 ??C (97.8 ??F) 05/28/2023 11:[address] Respiratory Rate 17 05/28/2023 11:37 AM SHELL COREMAKER Oxygen Saturation 100% 05/28/2023 11:37 AM SHELL COREMAKER Inhaled Oxygen Concentration - - Weight 78 kg (172 lb) 05/28/2023 11:37 AM SHELL COREMAKER Height - - Body Mass Index 31.46 03/29/2023 1:00 PM CDT documented in this encounter Ordered Prescriptions Prescription Sig Dispense Quantity Refills Last Filled Start Date End Date ondansetron (ZOFRAN) 8 mg tabletIndications: Prevention of Radiation-Induced Nausea and Vomiting Take 1 tablet (8 mg total) by mouth every 8 (eight) hours as needed for nausea or vomiting 30 tablet 3 05/28/2023 4 documented in this encounter Progress Notes * Billie Raymundo NP - 05/28/2023 11:30 AM CST Images from the original note were not included. MEDICAL ONCOLOGY OUTPATIENT ROV NOTE La Chung : 1950 DATE OF VISIT: 05/28/2023 Oncology History Overview Note DIAGNOSIS: well differentiated [...] time, she also underwent right colectomy in [facility] OR by Dr. Greyson Reeves. Biopsy [...] 04/04/2023: Cycle 22 - 05/02/2023: Cycle 23 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) INTERVAL HISTORY: La Chung is a 72 y.o. 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 She was last seen in clinic 05/02/2023. She is here today for follow up on CABINET study, last received Cycle 23 cabozantinib 20mg daily. She is here with her daughter. She had scans 05/24 which showed stable disease. Since our last visit, she reports developing a UTI around ~05/27/2023. She states she had lower back pain and blood in the urine. Her PCP prescribed macrobid for 5 days. She did provide a urine sample however was not notified of the results. Today, her symptoms have improved. She denies any further hematuria but still has lingering back aches. No dysuria or urinary urgency or frequency. She denies worsening diarrhea, fevers, or chills, SOB (with exertion, baseline), cough, headache, dizziness, nausea (occasionally), no vomiting, pain, blood in the stools, rash, swelling or mouth sores. REVIEW OF SYSTEMS: A complete review of systems was performed and positive and pertinent negative responses are documented in the history of present illness All other systems were negative. PHYSICAL EXAM: ECOG PS: 1 VITALS: BP 135/78 (BP Location: Left arm) Pulse 88 Temp 36.6 ??C (97.8 ??F) (Temporal) Resp 17 Wt 78 kg (172 lb) SpO2 100% BMI 31.46 kg/m?? GEN: Calm, conversant, well-appearing female in no apparent distress. HEENT: Sclerae anicteric, No conjunctival injection or hemorrhage LYMPH: No palpable cervical, supraclavicular lymphadenopathy. CV: RRR PULM/CHEST: Clear to auscultation bilaterally. No wheezes or rales. Unlabored breathing. ABD: Soft, non tender, non distended, bowel sounds +. Ostomy in LLQ. EXT: No LE edema, warm and well-perfused. BACK: no CVA tenderness SKIN: No rashes over exposed skin. NEURO: A&Ox4, grain elevator agent grossly intact by conversation, moving all extremities well, no focal deficits appreciated PSYCH: Mood euthymic, affect appropriate and congruent, speech clear and goal-directed LABORATORY: I personally reviewed all laboratories and discussed with patient during office visit, selected values included below. Hematology Lab History Latest Ref Rng & Units 03/07/2023 09:23 04/04/2023 14:32 05/02/2023 12:12 05/28/2023 Labs - Hematology WBC 3.8 - 9.9 K/cumm 2.6 3.1 3.3 3.8 Total Hb, POC 11.9 - 15.5 g/dL 10.9 10.8 10.9 11.6 Hct 35.6 - 45.5 % 33.4 32.5 32.8 35.3 Plt 150 - 400 K/cumm 89 88 90 94 Neutrophil abs 1.7 - 6.5 K/cumm 1.6 2.0 2.5 2.6 Lymphocytes, abs 0.8 - 3.3 K/cumm 0.4 0.4 0.3 0.5 Details More abnormal values are hidden. Newest values shown. Go to activity for more data. More values are hidden. Newest values shown. Go to activity for more data. Chem/LFT Lab History Latest Ref Rng & Units 03/07/2023 09:23 04/04/2023 14:32 05/02/2023 12:12 05/28/2023 Labs-Chem/LFT Sodium 135 - 145 mmol/L 141 139 138 137 Creatinine 0.60 - 1.10 mg/dL 1.25 1.22 1.22 1.19 Bilirubin, total 0.1 - 1.2 mg/dL 0.6 0.5 0.6 0.6 AST 10 - 45 Units/L 34 33 32 34 ALT 7 - 45 Units/L 24 24 22 25 Alk phos 40 - 130 Units/L 59 61 58 65 CrCl- Actual Body Weight (Cockcroft-Gault) 48.8 49.9 49.8 51.1 Details More abnormal values are hidden. Newest values shown. Go to activity for more data. More values are hidden. Newest values shown. Go to activity for more data. Tumor Marker History Latest Ref Rng & Units 03/07/2023 09:23 04/04/2023 14:32 05/02/2023 12:12 05/28/2023 14:10 Tumor Markers Chromogranin A <93 ng/mL 1552 1687 1736 1434 RADIOGRAPHIC/DIAGNOSTIC REVIEW: CT chest abdomen pelvis with [...] to represent sequela of prior diverticular disease. I have personally reviewed his scan images 03/21/2022 noting the stable liver lesions. CT chest/abdomen/pelvis 02/02/2022: Stable metastatic disease in [...] trial with dose 20mg daily. - She had a recent UTI which was treated with 5 days of Macrobid. She reports resolved hematuria however has residual back aches. We will plan to repeat a UA today to rule out persistent infection. This came back unremarkable. - We reviewed her scans which were stable per RECIST 1.1 criteria. - Her labs today were discussed, notable for Cr 1.19 (stable), normal LFTs, CGA 1434, ANC 2.6, PLT 94 (stable), Hgb 11.6, glucose 66 (asymptomatic, drinking soda and just had a protein bar). - We will plan to proceed with cycle 24 day 1 of CABINET study, will continue on 20 mg dosing of cabozantinib. Patient is agreeable. She will receive octreotide today as well. - She will return for follow up in 4 weeks per protocol. 2. Bone metastases: - Last received 04/04/2023. - Phos 1.9 today, will hold Xgeva. Encouraged PO supplementation with foods. Will hold off on PO supplementation given risk of worsening diarrhea. 3. Diarrhea - prn immodium and lomotil 4. Hypothyroidism with TSH elevated - Managed per endocrinology. - TSH/fT4 today WNL. 5. Vitamin D insufficiency/Deficiency: - 2000 international units daily recommended per nephrology - Vitamin D 17 today. 6. Renal function - creatinine 1.19 - follows with Nephrology 7. Right TM perforation - Follow up with ENT, s/p surgery. 8. Hyperparathyroidism - Calcium 9.6 - may be secondary to CKD, denosumab use. - On vit d supplementation. - nephrology following. 9. Eye disorder, grade 1 - Not a reported side effect of cabozantinib, appears unrelated at this time. - F/u Ophthalmology as needed My total encounter time on 05/28/2023 was 35 minutes which was spent in the activities documented in the note. This includes time spent prior to the visit and after the visit in direct care of the patient. This time does not include time spent in any separately reportable services. Billie Raymundo NP In collaboration with Dr. Cr. 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) H/O actinic keratosis Neuroendocrine tumor Cancer Disease Assessment for mCODE Disease status: stable Reason for disease status: imaging Date of cancer disease status assessment: 07/12/22 Jump to the Problem List 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) H/O actinic keratosis Neuroendocrine tumor Cancer Disease Assessment for mCODE Disease status: stable Reason for disease status: imaging Date of cancer disease status assessment: 07/12/22 [facility]: No change in treatment plan Cosigned by Eren Cr MD at 06/10/2023 1:53 PM SHELL COREMAKER L COREMAKER L COREMAKER documented in this encounter Plan of Treatment Not on file documented as of this encounter Results * Protein / creatinine ratio, urine, random (06/27/2023 1:30 PM SHELL COREMAKER) Protein, ur, quant 5.5 mg/dL [facility] Comment: Interpretive Data No reference range established. Current interpretive data was last revised 2018. Creatinine Ur 79.8 mg/dL [facility] Comment: Interpretive Data No reference range established. Current interpretive data was last revised 2018. Protein/creatinin e ratio 68.9 0.0 - 180.0 mg/g CR [facility] Urine 06/27/2023 1:30 PM SHELL COREMAKER 06/27/2023 3:42 PM SHELL COREMAKER us Eren Cr MD LAB URINE ORDERABLES Final Re sult [facility] Department [place] [address] * (ABNORMAL) Chromogranin A (06/27/2023 10:04 AM SHELL COREMAKER) Chromogranin A 1997(H) <93 ng/mL [facility] Comment: Impaired renal or hepatic function or treatment with proton pump inhibitors may result in artifactual elevations of Chromogranin A. ADDITIONAL INFORMATION This test was developed and its performance characteristics determined by [facility] in a manner consistent with CLIA [...] a homogeneous time-resolved immunofluorescent assay manufactured by [employer] and performed on the [employer] Kryptor Compact Plus. ? Values obtained with different assay methods or kits may be different and cannot be used interchangeably. ? Test results cannot be interpreted as absolute evidence for the presence or absence of malignant disease. Test Performed by: [facility] [address] [place] [address] Spanish Professor: Immanuel Novak M.D. Ph.D.; CLIA# [id number] Blood 06/27/2023 10:0 4 AM SHELL COREMAKER 06/27/2023 11:28 AM SHELL COREMAKER Eren Cr MD LAB BLOOD ORDERABLES Final Re sult [facility] Department [place] [address] * (ABNORMAL) Comprehensive metabolic panel (06/27/2023 10:04 AM SHELL COREMAKER) [facility] Sodium 140 135 - 145 mmol/L [facility] Comment:Testing performed by : [facility], [address] [place] [address] Potassium, pl 3.7 3.3 - 4.9 mmol/L [facility] Chloride 109 97 - 110 mmol/L [facility] CO2 27 22 - 32 mmol/L [facility] Anion gap 4 2 - 15 mmol/L [facility] BUN 11 6 - 25 mg/dL [facility] Creatinine 1.20(H) 0.60 - 1.10 mg/dL [facility] Glucose 129 70 - 199 mg/dL [facility] Comment: Interpretive Data Fasting glucose >/= 126 [...] 2022. Calcium 9.5 8.5 - 10.3 mg/dL [facility] Bilirubin, total 0.5 0.1 - 1.2 mg/dL [facility] Protein, pl 6.0(L) 6.5 - 8.5 g/dL [facility] Albumin 4.0 3.5 - 5.0 g/dL [facility] Alk phos 57 40 - 130 Units/L [facility] ALT 25 7 - 45 Units/L [facility] AST 35 10 - 45 Units/L [facility] Blood 06/27/2023 10:0 4 AM SHELL COREMAKER 06/27/2023 10:06 AM SHELL COREMAKER Eren Cr MD LAB BLOOD ORDERABLES Final Re sult [facility] Department [place] [address] * (ABNORMAL) CBC with auto differential (06/27/2023 10:04 AM SHELL COREMAKER) [facility] WBC 2.8(L) 3.8 - 9.9 K/cumm [facility] Comment:Testing performed by : [address] [address] Hgb 11.2(L) 11.9 - 15.5 g/dL [facility] Comment:Testing performed by : [address] [address] Hct 34.1(L) 35.6 - 45.5 % [facility] Comment:Testing performed by : [address] [address] Plt 84(L) 150 - 400 K/cumm [facility] Comment:Testing performed by : [address] [address] MPV 10.5 9.1 - 12.3 fL [facility] RBC 3.42(L) 3.90 - 5.20 M/cumm [facility] MCV 99.7(H) 81.3 - 96.4 fL [facility] MCH 32.7 27.1 - 33.3 pg [facility] MCHC 32.8 32.3 - 35.7 g/dL [facility] RDW CV 14.4 11.1 - 14.9 % [facility] RDW SD 51.8(H) 35.7 - 48.1 fL [facility] NRBC abs 0.00 0.00 - 0.01 K/cumm [facility] Blood 06/27/2023 10:0 4 AM SHELL COREMAKER 06/27/2023 10:06 AM SHELL COREMAKER Eren Cr MD LAB BLOOD ORDERABLES Edited R esult - Final Performing Organization Address [facility]/ZIP Co de Phone Number [facility] Department [place] [address] * (ABNORMAL) Vitamin D 25 hydroxy (06/27/2023 10:04 AM SHELL COREMAKER) Pathologist [facility] Vitamin D 25-OH 16(L) 30 - 80 ng/mL [facility] Blood 06/27/2023 10:0 4 AM SHELL COREMAKER 06/27/2023 11:37 AM SHELL COREMAKER Eren Cr MD LAB BLOOD ORDERABLES Final Re sult Performing Organization Address [facility] Co de Phone Number [facility] [place] [address] * (ABNORMAL) Phosphorus (06/27/2023 10:04 AM SHELL COREMAKER) Phosphorus, pl 2.0(L) 2.3 - 4.5 mg/dL [facility] Comment:Testing performed by : [facility], [address] [place] [address] Blood 06/27/2023 10:0 4 AM SHELL COREMAKER 06/27/2023 10:06 AM SHELL COREMAKER Eren Cr MD LAB BLOOD ORDERABLES Final Re sult Performing Organization Address [facility]/ZIP Co de Phone Number [facility] Department [place] [address] * (ABNORMAL) Lipid panel (06/27/2023 10:04 AM SHELL COREMAKER) Cholesterol 152 30 - 199 mg/dL [facility] Comment: Interpretive Data Ages < or [...] Data was last revised on 2018. Triglycerides 150(H) <=149 mg/dL [facility] Comment: Interpretive Data Ages < or = [...] Data was last revised on 2018. HDL 62 >=40 mg/dL [facility] Comment: Interpretive Data Ages < or = [...] was last revised on 2018. LDL, calculated 60 <=129 mg/dL [facility] Comment: Interpretive Data Ages < or = [...] was last revised on 2018. Non-HDL Cholesterol 90 mg/dL [facility] Comment: Interpretive Data Ages < or = [...] last revised on 2018. Chol/HDL ratio 2 [facility] Blood 06/27/2023 10:0 4 AM SHELL COREMAKER 06/27/2023 11:37 AM SHELL COREMAKER Eren Cr MD LAB BLOOD ORDERABLES Final Re sult Performing Organization Address [facility]/ZIP Co de Phone Number [place], [place] [phone] * (ABNORMAL) TSH (06/27/2023 10:04 AM SHELL COREMAKER) Thyroid Stimulating Hormone 5.88(H) 0.30 - 4.20 mcIUnit/mL [facility] Blood 06/27/2023 10:0 4 AM SHELL COREMAKER 06/27/2023 11:37 AM SHELL COREMAKER Result [facility] Eren Cr MD LAB BLOOD ORDERABLES Final Re sult Performing Organization Address [facility] Co de Phone Number [facility] [place], [place] [phone] * Magnesium (06/27/2023 10:04 AM SHELL COREMAKER) Magnesium 1.5 1.4 - 2.5 mg/dL [facility] Comment:Testing performed by : [facility], [address] [place] [address] Blood 06/27/2023 10:0 4 AM SHELL COREMAKER 06/27/2023 10:06 AM SHELL COREMAKER Eren Cr MD LAB BLOOD ORDERABLES Final Re sult Performing Organization Address [facility] Co de Phone Number [facility] Laboratories [place], [place] [phone] * (ABNORMAL) Chromogranin A (05/28/2023 2:10 PM SHELL COREMAKER) Chromogranin A 1434(H) <93 ng/mL [facility] Comment: Impaired renal or hepatic function or treatment with proton pump inhibitors may result in artifactual elevations of Chromogranin A. ADDITIONAL INFORMATION This test was developed and its performance characteristics determined by [facility] in a manner consistent with CLIA [...] a homogeneous time-resolved immunofluorescent assay manufactured by [employer] and performed on the [employer] Kryptor Compact Plus. ? Values obtained with different assay methods or kits may be different and cannot be used interchangeably. ? Test results cannot be interpreted as absolute evidence for the presence or absence of malignant disease. Test Performed by: [place] [address] Spanish Professor: Immanuel Novak M.D. Ph.D.; CLIA# [id number] Blood 05/28/2023 2:10 PM SHELL COREMAKER 05/28/2023 4:50 PM SHELL COREMAKER us Eren Cr MD LAB BLOOD ORDERABLES Final Re sult [facility] [place] [address] * (ABNORMAL) Comprehensive metabolic panel (05/28/2023 2:10 PM SHELL COREMAKER) Sodium 137 135 - 145 mmol/L [facility] Comment:Testing performed by : [facility], [address] [facility] [address] Potassium, pl 4.0 3.3 - 4.9 mmol/L [facility] Chloride 105 97 - 110 mmol/L [facility] CO2 26 22 - 32 mmol/L [facility] Anion gap 6 2 - 15 mmol/L [facility] BUN 12 6 - 25 mg/dL [facility] Creatinine 1.19(H) 0.60 - 1.10 mg/dL [facility] Glucose 111 70 - 199 mg/dL [facility] Comment: Interpretive Data Fasting glucose >/= 126 [...] interpretive data was last revised 2022. Calcium 9.7 8.5 - 10.3 mg/dL [facility] Bilirubin, total 0.6 0.1 - 1.2 mg/dL [facility] Protein, pl 6.3(L) 6.5 - 8.5 g/dL [facility] Albumin 4.1 3.5 - 5.0 g/dL [facility] Alk phos 65 40 - 130 Units/L [facility] ALT 25 7 - 45 Units/L [facility] AST 34 10 - 45 Units/L [facility] Blood 05/28/2023 2:10 PM SHELL COREMAKER 05/28/2023 2:10 PM SHELL COREMAKER Eren Cr MD LAB BLOOD ORDERABLES Final Re sult [facility] Department [place] [address] * (ABNORMAL) CBC with auto differential (05/28/2023 2:10 PM SHELL COREMAKER) [facility] WBC 3.8 3.8 - 9.9 K/cumm [facility] Comment:Testing performed by : [facility], [address] [place] [address] Hgb 11.6(L) 11.9 - 15.5 g/dL [facility] Comment: Testing performed by: [address] [address] Interpretive Data A reference range for this assay has not been established for patients with an unknown legal sex. Please refer to the laboratory test catalog for established sex-specific reference intervals. Current interpretive data was last revised on 2023. Hct 35.3(L) 35.6 - 45.5 % [facility] Comment: Testing performed by: [facility], [address] [place] [address] Interpretive Data A reference range for this assay has not been established for patients with an unknown legal sex. Please refer to the laboratory test catalog for established sex-specific reference intervals. Current interpretive data was last revised on 2023. Plt 94(L) 150 - 400 K/cumm [facility] Comment:Testing performed by : [address] [address] MPV 10.7 9.1 - 12.3 fL [facility] RBC 3.59(L) 3.90 - 5.20 M/cumm [facility] Comment: Interpretive Data A reference range for this assay has not been established for patients with an unknown legal sex. Please refer to the laboratory test catalog for established sex-specific reference intervals. Current interpretive data was last revised on 2023. MCV 98.3(H) 81.3 - 96.4 fL [facility] MCH 32.3 27.1 - 33.3 pg [facility] MCHC 32.9 32.3 - 35.7 g/dL [facility] RDW CV 14.3 11.1 - 14.9 % [facility] RDW SD 52.0(H) 35.7 - 48.1 fL [facility] NRBC abs 0.00 0.00 - 0.01 K/cumm [facility] Blood 05/28/2023 2:10 PM SHELL COREMAKER 05/28/2023 2:10 PM SHELL COREMAKER Eren Cr MD LAB BLOOD ORDERABLES Final Re sult Performing Organization Address [facility]/[place] [address] * (ABNORMAL) Vitamin D 25 hydroxy (05/28/2023 2:10 PM SHELL COREMAKER) Vitamin D 25-OH 19(L) 30 - 80 ng/mL [facility] Blood 05/28/2023 2:10 PM SHELL COREMAKER 05/28/2023 7:03 PM SHELL COREMAKER Result [facility] Eren Cr MD LAB BLOOD ORDERABLES Final Re sult Performing Organization Address [facility] Co de Phone Number [place], [place] [phone] * (ABNORMAL) Phosphorus (05/28/2023 2:10 PM SHELL COREMAKER) Phosphorus, pl 1.9(L) 2.3 - 4.5 mg/dL [facility] Comment:Testing performed by : [facility], [address] [place] [address] Blood 05/28/2023 2:10 PM SHELL COREMAKER 05/28/2023 2:10 PM SHELL COREMAKER Result [facility] Eren Cr MD LAB BLOOD ORDERABLES Final Re sult Performing Organization Address [facility] [place] [address] * (ABNORMAL) Lipid panel (05/28/2023 2:10 PM SHELL COREMAKER) Cholesterol 156 30 - 199 mg/dL [facility] Comment: Interpretive Data Ages < or = [...] Data was last revised on 2018. Triglycerides 161(H) <=149 mg/dL [facility] Comment: Interpretive Data [...] on 2018. HDL 54 >=40 mg/dL [facility] Comment: Interpretive Data Ages [...] was last revised on 2018. LDL, calculated 70 <=129 mg/dL [facility] Comment: Interpretive Data Ages < or = [...] was last revised on 2018. Non-HDL Cholesterol 102 mg/dL [facility] Comment: Interpretive Data Ages < or = [...] last revised on 2018. 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)- Primary Malignant neoplasm metastatic to liver (HCC) Neuroendocrine carcinoma (HCC) Other malignant neoplasm of unspecified site Neuro-endocrine carcinoma (HCC) Other malignant neoplasm of unspecified site CINV (chemotherapy-induced nausea and vomiting) Hypophosphatemia Disorders of phosphorus metabolism Dehydration documented in this encounter Administered Medications Inactive Administered Medications - up to 3 most recent administrations Medication Order MAR Action Action Date Dose Rate Site octreotide LAR (SandoSTATIN LAR) extended release intramuscular injection 30 mg 30 mg, intramuscular, Once, On Sat05/28/23 at 1345, For 1 dose, Refrigerate. For IM intragluteal administration only- alternate gluteal sites. 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) Given 05/28/2023 3:31 PM SHELL COREMAKER 30 mg Right Dorsogluteal/Butt ock documented in this encounter Discontinued Medications Medication Sig Discontinue Reason Start Date End Da te ondansetron (ZOFRAN) 8 mg tabletIndications:Preve ntion of Radiation-Induced Nausea and Vomiting Take 1 tablet (8 mg total) by mouth every 8 (eight) hours as needed for nausea or vomiting Reorder 08/17/2022 05/28/2023 documented as of this encounter Orders Medications Ordered That Brett ht Not Have Been Administered Count Last Ordered Date First Ordered Date ondansetron (ZOFRAN) injection 8 mg 1 05/28 sodium chloride 0.9% bolus 1,000 mL 1 05/28 Appointment Requests Count Last Ordered Date Fi rst Ordered Date ONCBCN CLINIC APPOINTMENT REQUEST 2 023 05/28/2023 ONCBCN LAB APPOINTMENT 1 06/27/2023 ONCBCN TAKE HOME STUDY DRUG APPT 1 06/27/20 ONCBCN INJECTION APPOINTMENT REQUEST 2 05/09 documented in this encounter Care Teams Wellness Assistant Relationship Specialty Start Date End Date Julio César Briseno MD PCP - General 10/01/16 Eren Cr MD Referring Physician Medical Oncology 11/25/18 Yohana Bowen MD Radiation Oncologist Radiation Oncology 11/25/18 Alejo Mi MD [address] [place] [address] Referring Physician Nephrology 03/07/23 documented as of this encounter
--- OUTSIDE RECORDS SUMMARY | 2024-06-25 22:10 | XMS_ITS | Encounter Summary ---
Author Organization [facility] Healthcare Address [address] [place] [address] Care Team Providers Care Grid Maker Name Role Phone Julio César Briseno MD Primary Care Provider [phone] Eren Cr MD Unavailable [phone] Yohana Bowen MD Unavailable Alejo Mi MD Unavailable [phone] Encounter Details Date Type Department Care Team (Late st Contact Info) Description 05/09/2023 Plan of Care Documentation 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 The patient is under my care, and I have authorized the services on this plan of care and will periodically review the plan. COVERING TEXTURER documented in this encounter Plan of Treatment Not on file documented as of this encounter Visit Diagnoses Not on filedocumented in this encounter Care Teams Grid Maker Relationship Specialty Start Date End Date Julio César Briseno MD PCP - General 10/01/16 Eren Cr MD Referring Physician Medical Oncology 11/25/18 Yohana Bowen MD Radiation Oncologist Radiation Oncology 11/25/18 Alejo Mi MD [address] [address] Referring Physician Nephrology 03/07/23 documented as of this encounter
--- OUTSIDE RECORDS SUMMARY | 2024-06-25 22:10 | XMS_ITS | Encounter Summary ---
Author Organization [facility] [employer] [facility] Address [address] [place] [address] Phone Care Team Providers Care Apn Name Role Phone Julio César Briseno MD Primary Care Provider Eren Cr MD Unavailable [phone] Yohana Bowen MD Unavailable Alejo Mi MD Unavailable Encounter Details Date Type Department Care Team (Late st Contact Info) Description 05/02/2023 Orders Only [facility] Oncology [address] [place] [address] Dorota Gallardo, RN Social History Tobacco Use Types Packs/Day Years Used Date Smoking Tobacco: Never Smokeless Tobacco: Never Alcohol Use Standard Drinks/Week Comments Yes 1 (1 standard drink = 0.6 oz pur e alcohol) OASIS D0700: Social Isolation Answer Da te Recorded Frequency of experiencing loneliness or isolatio n Never 03/13/2023 OASIS A1250: Transportation Answer Date Recorded Lack [...] on file 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 Gender Identity Not on file Sexual Orientation Straight 02/19/2021 9: 29 AM CDT Occupation Industry Job Start Date Job End Date retired Not on file Not on file Not on file documented as of this encounter Plan of Treatment Not on file documented as of this encounter Visit Diagnoses Not on filedocumented in this encounter Care Teams Apn Relationship Specialty Start Date End Date Julio César Briseno MD PCP - General 10/01/16 rEen Cr MD Referring Physician Medical Oncology 11/25/18 Yohana Bowen MD Radiation Oncologist Radiation Oncology 11/25/18 Alejo Mi MD [address] [address] Referring Physician Nephrology 03/07/23 documented as of this encounter
--- OUTSIDE RECORDS SUMMARY | 2024-06-25 22:10 | XMS_ITS | Encounter Summary ---
Author Organization [facility] Address [address] [place] [address] Phone Care Team Providers Care Investigative Shopper Name Role Phone Julio César Briseno MD Primary Care Provider Eren Cr MD Unavailable [phone] Yohana Bowen MD Unavailable Alejo Mi MD Unavailable [phone] Encounter Details Date Type Department Care Team (Late st Contact Info) Description 06/18/2023 Orders Only [facility] Oncology [address] [place] [address] Eren Cr MD [address] [place] [address] Social History Tobacco Use Types Packs/Day Years [...] on file 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 Gender Identity Not on file Sexual Orientation Straight 02/19/2021 9: 29 AM CDT Occupation Industry Job Start Date Job End Date retired Not on file Not on file Not on file documented as of this encounter Plan of Treatment Not on file documented as of this encounter Visit Diagnoses Not on filedocumented in this encounter Care Teams Investigative Shopper Relationship Specialty Start Date End Date Julio César Briseno MD PCP - General 10/01/16 Eren Cr MD Referring Physician Medical Oncology 11/25/18 Yohana Bowen MD Radiation Oncologist Radiation Oncology 11/25/18 Alejo Mi MD [address] [place] [address] Referring Physician Nephrology 03/07/23 documented as of this encounter
--- OUTSIDE RECORDS SUMMARY | 2024-06-25 22:10 | XMS_ITS | Encounter Summary ---
Author Organization [facility] Healthcare Address [address] [place] [address] Care Team Providers Care Equal Opportunity Specialist Name Role Phone Julio César Briseno MD Primary Care Provider [phone] Eren Cr MD Unavailable [phone] Yohana Bowen MD Unavailable Alejo Mi MD Unavailable [phone] Encounter Details Date Type Department Care Team (Late st Contact Info) Description 05/08/2023 Home Care Visit [facility] [address] [address] [address] [place] [address] Sherlyn Orozco RN SBAR-RECERTIFICATION Social History Tobacco Use Types Packs/Day Years [...] on filedocumented in this encounter Care Teams Equal Opportunity Specialist Relationship Specialty Start Date End Date Julio César Briseno MD PCP - General 10/01/16 Eren Cr MD Referring Physician Medical Oncology 11/25/18 Yohana Bowen MD Radiation Oncologist Radiation Oncology 11/25/18 Alejo Mi MD [address] [address] Referring Physician Nephrology 03/07/23 documented as of this encounter
--- OUTSIDE RECORDS SUMMARY | 2024-06-25 22:10 | XMS_ITS | Encounter Summary ---
Author Organization 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) Procedures DC OCTREOTIDE INJECTION, DEPOT Octreotide 28 Day Cycles - Carcinoid Eren Cr MD [address] [facility] [address] [place] [address] Phone: tel: fax: [address] [address] Phone: tel: fax: Referral ID Status Reason Start Date Expiration Date V isits Requested Visits Authorized [id number] Authorized 11/28/2017 02/05/2025 1 150 Encounter Details Date Type Department Care Team (Late st Contact Info) Description 05/28/2023 1:00 PM HEALTH CARE ASSISTANT Infusion [facility] Oncology [address] [place] [address] 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 Dx); Neuroendocrine carcinoma (HCC); Neuro-endocrine carcinoma (HCC); Dehydration Social History Tobacco Use Types [...] file Legal Sex Female 2:41 PM HEALTH CARE ASSISTANT Gender Identity Not on file Sexual Orientation Straight 02/19/2021 9: 29 AM CDT Occupation Industry Job Start Date Job End Date retired Not on file Not on file Not on file documented as of this encounter Nursing Notes * Anny Jara, [place] - 05/28/2023 1:00 PM CST Oncology Nursing Note [facility] La Chung is a 72 y.o. female who presents for treatment 1L NS and anti- emetics along with octreotide Pre-treatment Nursing Assessment Additional Notes: See Infusion appt for assessment. BP: 135/78 Temp: 36.6 ??C (97.8 ??F) Temp src: Temporal Pulse: 88 Resp: 17 SpO2: 100 % Weight: 78 kg (172 lb) Treatment Patient: does not require labs today. Pre blood return: Mary Chung tolerated treatment well. Patient was frequently observed and monitored throughout the administration of their treatment. Additional Notes: bandaid and gauze to inj site Post blood return: Brisk IV access post infusion: NS Patient Education Treatment Education: Information/teaching given to patient including process and procedure related to today's visit Response: Verbalizes understanding Discharge Plan Discharge instructions given to patient. Future appointments given and reviewed with treatment plan. 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)- Primary Neuroendocrine carcinoma (HCC) Other malignant neoplasm of unspecified site Neuro-endocrine carcinoma (HCC) Other malignant neoplasm of unspecified site Dehydration documented in this encounter Administered Medications Inactive Administered Medications - up to 3 most recent administrations Medication Order MAR Action Action Date Dose Rate Site ondansetron (ZOFRAN) injection 8 mg 8 mg, intravenous, Administer over 2 Minutes, Once as needed, nausea, vomiting, Starting on Sat05/28/23 at 1346, For 1 doseIndications:Hypophospha temia Given 05/28/2023 2:01 PM HEALTH CARE ASSISTANT 8 mg sodium chloride 0.9% bolus 1,000 mL 1,000 mL, intravenous, at 500 mL/hr, Administer over 2 Hours, Once, On Sat05/28/23 at 1415, For 1 doseIndications:Neuroendocr ine carcinoma (HCC),Dehydration New Bag 05/28/2023 1:59 PM HEALTH CARE ASSISTANT 1,000 mL 500 mL/hr documented in this encounter Orders Medications Ordered That Brett ht Not Have Been Administered Count Last Ordered Date First Ordered Date [id number] cabozantinib (2018-02-122/[id number]) tablet 20 mg 1 05/28/2023 octreotide LAR (SandoSTATIN LAR) extended release intramuscular injection 30 mg 1 05/28/2023 ondansetron (ZOFRAN) injection 8 mg 1 05/28 Nursing Count Last Ordered Date First Orde red Date ONCBCN STUDY COMMUNICATION 1 1 05/28/2023 ONCBCN TREATMENT PARAMETERS 1 1 05/28/2023 RESEARCH STUDY CLARIFICATION ORDER 1 2022 Appointment Requests Count Last Ordered Date Fi rst Ordered Date ONCBCN INJECTION APPOINTMENT REQUEST 2 05/09 documented in this encounter Care Teams Animal Assisted Therapist Relationship Specialty Start Date End Date Julio César Briseno MD PCP - General 10/01/16 Eren Cr MD Referring Physician Medical Oncology 11/25/18 Yohana Bowen MD Radiation Oncologist Radiation Oncology 11/25/18 Alejo Mi MD [address] [place] [address] Referring Physician Nephrology 03/07/23 documented as of this encounter
--- OUTSIDE RECORDS SUMMARY | 2024-06-25 22:10 | XMS_ITS | Encounter Summary ---
Author Organization [facility] Address [address] [place] [address] Phone Care Team Providers Care Engine Wiper Name Role Phone Julio César Briseno MD Primary Care Provider [phone] Eren Cr MD Unavailable [phone] Yohana Bowen MD Unavailable Alejo Mi MD Unavailable [phone] Encounter Details Date Type Department Care Team (Late st Contact Info) Description 05/28/2023 Orders Only [facility] Oncology [address] [place] [address] Eren Cr MD [address] [place] [address] Neuroendocrine carcinoma (HCC) (Primary Dx) Social History [...] on file Legal 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
--- OUTSIDE RECORDS SUMMARY | 2024-06-25 22:10 | XMS_ITS | Encounter Summary ---
Author Organization [facility] [employer] [facility] Address [address] [place] [address] Phone Care Team Providers Care Ammonium Hydroxide Operator Name Role Phone Julio César Briseno MD Primary Care Provider Eren Cr MD Unavailable [phone] Yohana Bowen MD Unavailable Alejo Mi MD Unavailable [phone] Reason for Visit * Reason Comments Injections Encounter Details Date Type Department Care Team (Late st Contact Info) Description 06/27/2023 11:00 AM HYDROGRAPHICAL TECHNICAL OFFICER Infusion [facility] Oncology [address] [place] [address] Social History Tobacco Use Types Packs/Day Years [...] on file Legal Sex Female 2:41 PM HYDROGRAPHICAL TECHNICAL OFFICER Gender Identity Not on file Sexual Orientation Straight 02/19/2021 9: 29 AM CDT Occupation Industry Job Start Date Job End Date retired Not on file Not on file Not on file documented as of this encounter Plan of Treatment Not on file documented as of this encounter Visit Diagnoses Not on filedocumented in this encounter Care Teams Ammonium Hydroxide Operator Relationship Specialty Start Date End Date Julio César Briseno MD PCP - General 10/01/16 Eren Cr MD Referring Physician Medical Oncology 11/25/18 Yohana Bowen MD Radiation Oncologist Radiation Oncology 11/25/18 Alejo Mi MD [address] [address] Referring Physician Nephrology 03/07/23 documented as of this encounter
--- OUTSIDE RECORDS SUMMARY | 2024-06-25 22:10 | XMS_ITS | Encounter Summary ---
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 phase III cabozantinib Eren Cr MD [address] [facility] [address] [place] [address] Phone: tel: fax: [facility] and [facility] [address] [facility] Advanced Medicine 7th [place] [address] Phone: tel: Referral ID Status Reason Start Date Expiration Date Visits Re quested Visits Authorized [id number] Closed 06/21/2021 06/26/2024 1 99 Encounter Details Date Type Department Care Team (Late st Contact Info) Description 06/27/2023 10:30 AM PORTABLE POWER TOOL REPAIRER Office Visit [facility] On[facility] [address] [place] [address] Eren Cr MD [address] [facility] [address] [place] [address] Neuroendocrine carcinoma (HCC) (Primary Dx); Malignant neoplasm [...] on file Legal Sex Female 2:41 PM PORTABLE POWER TOOL REPAIRER Gender Identity Not on file Sexual Orientation Straight 02/19/2021 9: 29 AM CDT Occupation Industry Job Start Date Job End Date retired Not on file Not on file Not on file documented as of this encounter Last Filed Vital Signs Vital Sign Reading Time Taken Comments Blood Pressure 154/73 06/27/2023 10:23 AM PORTABLE POWER TOOL REPAIRER Pulse 74 06/27/2023 10:23 AM PORTABLE POWER TOOL REPAIRER Temperature 36.2 ??C (97.1 ??F) 06/27/2023 10:[address] Respiratory Rate 16 06/27/2023 10:23 AM PORTABLE POWER TOOL REPAIRER Oxygen Saturation 97% 06/27/2023 10:23 AM PORTABLE POWER TOOL REPAIRER Inhaled Oxygen Concentration - - Weight 79.1 kg (174 lb 6.4 oz) 06/27/2023 10:23 AM PORTABLE POWER TOOL REPAIRER Height - - Body Mass Index 30.89 06/11/2023 3:18 PM PORTABLE POWER TOOL REPAIRER documented in this encounter Progress Notes * Raymundo, Billie, KNUCKLE BENDER - 06/27/2023 10:30 AM CST Images from the original note were not included. MEDICAL ONCOLOGY OUTPATIENT ROV NOTE La Chung : 1950 DATE OF VISIT: 06/27/2023 Oncology History Overview Note DIAGNOSIS: well differentiated [...] also underwent right colectomy in [facility] OR by Dr. Greyson Reeves. Biopsy [...] 20mg daily. She is here with her . She is feeling well today. She has been getting IVF outpatient. She continues to endorse watery eyes without vision change. She otherwise denies any complaints, including fevers, chills, N/v/d, pain,urinary changes, headaches, dizziness, lightheadedness or ostomy issues. She states since her ear surgery in 02/2023 with no dizziness since. REVIEW OF SYSTEMS: Review of Systems Constitutional: Negative for chills, fatigue, fever and malaise. HENT: Positive for hearing loss. Negative for mouth sores and sore throat. Eyes: Negative for change in vision. Watery eyes Respiratory: Negative. Negative for cough and shortness of breath. Cardiovascular: Negative. Negative for chest pain and palpitations. Gastrointestinal: Negative. Negative for abdominal distention, abdominal pain, blood in stool, constipation, diarrhea, nausea and vomiting. Genitourinary: Negative. Musculoskeletal: Negative. Skin: Negative. Neurological: Negative. Psychiatric/Behavioral: Negative. All other systems reviewed and are negative. Pain: Negative for: new onset pain. PHYSICAL EXAM: ECOG PS: 1 VITALS: BP 154/73 (BP Location: Left arm) Pulse 74 Temp 36.2 ??C (97.1 ??F) (Temporal) Resp 16 Wt 79.1 kg (174 lb 6.4 oz) SpO2 97% BMI 30.89 kg/m?? Physical Exam Vitals reviewed. Constitutional: General: She is not in acute distress. Appearance: Normal appearance. She is not ill-appearing. HENT: Head: Normocephalic and atraumatic. Ears: Comments: Hearing aid in place Nose: Nose normal. Mouth/Throat: Mouth: Mucous membranes are moist. Pharynx: Oropharynx is clear. Eyes: General: No scleral icterus. Conjunctiva/sclera: Conjunctivae normal. Cardiovascular: Rate and Rhythm: Normal rate and regular rhythm. Heart sounds: Normal heart sounds. Pulmonary: Effort: No respiratory distress. Breath sounds: Normal breath sounds. Abdominal: General: Bowel sounds are normal. There is no distension. Palpations: Abdomen is soft. Tenderness: There is no abdominal tenderness. There is no guarding. Comments: Ostomy in place Musculoskeletal: Cervical back: Normal range of motion. [...] Lab History Latest Ref Rng & Units 04/04/2023 14:32 05/02/2023 12:12 05/28/2023 06/27/2023 10:04 Labs - Hematology WBC 3.8 - 9.9 K/cumm 3.1 3.3 3.8 2.8 Total Hb, POC 11.9 - 15.5 g/dL 10.8 10.9 11.6 11.2 Hct 35.6 - 45.5 % 32.5 32.8 35.3 34.1 Plt 150 - 400 K/cumm 88 90 94 84 Neutrophil abs 1.5 - 6.5 K/cumm 1.5 - 6.5 K/cumm 2.0 2.5 2.6 1.9 1.9 Lymphocytes, abs 0.8 - 3.3 K/cumm 0.8 - 3.3 K/cumm 0.4 0.3 0.5 0.3 0.3 Details More abnormal values are hidden. Newest values shown. Go to activity for more data. More values are hidden. Newest values shown. Go to activity for more data. Chem/LFT Lab History Latest Ref Rng & Units 04/04/2023 14:32 05/02/2023 12:12 05/28/2023 06/27/2023 10:04 Labs-Chem/LFT Sodium 135 - 145 mmol/L 139 138 137 140 Creatinine 0.60 - 1.10 mg/dL 1.22 1.22 1.19 1.20 Bilirubin, total 0.1 - 1.2 mg/dL 0.5 0.6 0.6 0.5 AST 10 - 45 Units/L 33 32 34 35 ALT 7 - 45 Units/L 24 22 25 25 Alk phos 40 - 130 Units/L 61 58 65 57 CrCl- Actual Body Weight (Cockcroft-Gault) 49.9 49.8 51.1 51.4 Details More abnormal values are hidden. Newest [...] trial with dose 20mg daily. - She is feeling well today. She has G2 HTN, asymptomatic. She has longstanding h/o HTN. Encouragedfollow up with her PCP for adjustments. - We reviewed her labs, notable for Cr 1.2 (stable), normal LFTs, ANC 1.9, PLT 84 (stable), Hgb 11.2, phos 2 (G1). - We will plan to proceed with cycle 25 day 1 of CABINET study, will continue on 20 mg dosing of cabozantinib. Patient is agreeable. She will receive octreotide today as well. - She will return for follow up in 4 weeks per protocol. 2. Bone metastases - Last received 04/04/2023. - No suspicious lesions on last CT. 3. Diarrhea - PRN immodium and lomotil 4. Hypothyroidism with TSH elevated - Managed per endocrinology. - TSH/fT4 today WNL. 5. Vitamin D insufficiency/Deficiency - 2000 international units daily recommended per nephrology 6. Renal function - creatinine 1.2 - follows with Nephrology 7. Right TM perforation - Follow up with ENT, s/p surgery. 8. Hyperparathyroidism - Calcium 9.5 - may be secondary to CKD, denosumab use. - On vit d supplementation. - nephrology following. 9. Eye disorder, grade 1, watery eyes - Not a reported side effect of cabozantinib, appears unrelated at this time. - F/u Ophthalmology as needed - Trial claritin or zyrtec recommended. 10. HTN - On Benicar per PCP. - Recommended PCP visit to adjust meds. My total encounter time on 06/27/2023 was 25 minutes which was spent in [...] plan Cosigned by Eren Cr MD at 06/27/2023 4:47 PM PORTABLE POWER TOOL REPAIRER ABLE POWER TOOL REPAIRER ABLE POWER TOOL REPAIRER documented in this encounter Plan of Treatment Not on file documented as of this encounter Results * Magnesium (07/25/2023 9:47 AM PORTABLE POWER TOOL REPAIRER) Magnesium 1.5 1.4 - 2.5 mg/dL [facility] Comment:Testing performed by : [facility], [address] [place] [address] Blood 07/25/2023 9:47 AM PORTABLE POWER TOOL REPAIRER 07/25/2023 9:49 AM PORTABLE POWER TOOL REPAIRER us Eren Cr MD LAB BLOOD ORDERABLES Final Re sult [facility] Department [place] [address] * (ABNORMAL) Chromogranin A (07/25/2023 9:47 AM PORTABLE POWER TOOL REPAIRER) Chromogranin A 1971(H) <93 ng/mL [facility] Comment: Impaired renal or hepatic function or treatment with proton pump inhibitors may result in artifactual elevations of Chromogranin A. ADDITIONAL INFORMATION This test was developed and its performance characteristics determined by [facility] in a manner consistent with CLIA requirements. [...] a homogeneous time-resolved immunofluorescent assay manufactured by [employer] and performed on the [employer] Kryptor Compact Plus. ? Values obtained with different assay methods or kits may be different and cannot be used interchangeably. ? Test results cannot be interpreted as absolute evidence for the presence or absence of malignant disease. Test Performed by: [place] [address] Trimming Cutter: Immanuel Novak M.D. Ph.D.; CLIA# [id number] Blood 07/25/2023 9:47 AM PORTABLE POWER TOOL REPAIRER 07/25/2023 10:40 AM PORTABLE POWER TOOL REPAIRER us Eren Cr MD LAB BLOOD ORDERABLES Final Re sult [facility] [place] [address] * (ABNORMAL) Comprehensive metabolic panel (07/25/2023 9:47 AM PORTABLE POWER TOOL REPAIRER) Sodium 137 135 - 145 mmol/L [facility] Comment:Testing performed by : [facility], [address] [place] [address] Potassium, pl 4.3 3.3 - 4.9 mmol/L [facility] Chloride 107 97 - 110 mmol/L [facility] CO2 27 22 - 32 mmol/L [facility] Anion gap 3 2 - 15 mmol/L [facility] BUN 14 6 - 25 mg/dL [facility] Creatinine 1.40(H) 0.60 - 1.10 mg/dL [facility] Glucose 113 70 - 199 mg/dL [facility] Comment: Interpretive Data Fasting glucose [...] 2022. Calcium 10.3 8.5 - 10.3 mg/dL [facility] Bilirubin, total 0.7 0.1 - 1.2 mg/dL [facility] Protein, pl 6.4(L) 6.5 - 8.5 g/dL [facility] Albumin 4.1 3.5 - 5.0 g/dL [facility] Alk phos 66 40 - 130 Units/L [facility] ALT 22 7 - 45 Units/L [facility] AST 35 10 - 45 Units/L [facility] Blood 07/25/2023 9:47 AM PORTABLE POWER TOOL REPAIRER 07/25/2023 9:49 AM PORTABLE POWER TOOL REPAIRER Eren Cr MD LAB BLOOD ORDERABLES Final Re sult Performing Organization Address City/[facility]/ZIP Co de Phone Number [facility] [place] [address] * (ABNORMAL) CBC with auto differential (07/25/2023 9:47 AM PORTABLE POWER TOOL REPAIRER) WBC 3.1(L) 3.8 - 9.9 K/cumm [facility] Comment:Testing performed by : [address] [address] Hgb 11.8(L) 11.9 - 15.5 g/dL [facility] Comment:Testing performed by : [address] [address] Hct 35.5(L) 35.6 - 45.5 % [facility] Comment:Testing performed by : [address] [address] Plt 84(L) 150 - 400 K/cumm [facility] Comment:Testing performed by : [address] [address] MPV 10.3 9.1 - 12.3 fL [facility] RBC 3.66(L) 3.90 - 5.20 M/cumm [facility] MCV 97.0(H) 81.3 - 96.4 fL [facility] MCH 32.2 27.1 - 33.3 pg [facility] MCHC 33.2 32.3 - 35.7 g/dL [facility] RDW CV 14.2 11.1 - 14.9 % [facility] RDW SD 49.9(H) 35.7 - 48.1 fL [facility] NRBC abs 0.00 0.00 - 0.01 K/cumm [facility] Blood 07/25/2023 9:47 AM PORTABLE POWER TOOL REPAIRER 07/25/2023 9:49 AM PORTABLE POWER TOOL REPAIRER Eren Cr MD LAB BLOOD ORDERABLES Final Re sult [facility] [place] [address] * (ABNORMAL) Vitamin D 25 hydroxy (07/25/2023 9:47 AM PORTABLE POWER TOOL REPAIRER) Pathologist [facility] Vitamin D 25-OH 22(L) 30 - 80 ng/mL [facility] Blood 07/25/2023 9:47 AM PORTABLE POWER TOOL REPAIRER 07/25/2023 10:37 AM PORTABLE POWER TOOL REPAIRER Eren Cr MD LAB BLOOD ORDERABLES Final Re sult Performing Organization Address [facility] [place] [address] * Phosphorus (07/25/2023 9:47 AM PORTABLE POWER TOOL REPAIRER) [facility] Phosphorus, pl 3.4 2.3 - 4.5 mg/dL [facility] Comment:Testing performed by : [facility], [address] [place] [address] Blood 07/25/2023 9:47 AM PORTABLE POWER TOOL REPAIRER 07/25/2023 9:49 AM PORTABLE POWER TOOL REPAIRER Eren Cr MD LAB BLOOD ORDERABLES Final Re sult Performing Organization Address [facility] [place] [address] * Lipid panel (07/25/2023 9:47 AM PORTABLE POWER TOOL REPAIRER) [facility] Cholesterol 138 30 - 199 mg/dL [facility] Comment: Interpretive Data Ages < [...] revised on 2018. Triglycerides 108 <=149 mg/dL [facility] Comment: Interpretive Data Ages < [...] revised on 2018. HDL 50 >=40 mg/dL [facility] Comment: Interpretive Data Ages < [...] on 2018. LDL, calculated 66 <=129 mg/dL [facility] Comment: Interpretive Data Ages < [...] revised on 2018. Non-HDL Cholesterol 88 mg/dL [facility] Comment: Interpretive Data Ages < [...] last revised on 2018. 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) Other malignant neoplasm of unspecified site documented in this encounter Orders Appointment Requests Count Last Ordered Date Fi rst Ordered Date ONCBCN CLINIC APPOINTMENT REQUEST 2 024 06/27/2023 ONCBCN INJECTION APPOINTMENT REQUEST 1 07/08 ONCBCN LAB APPOINTMENT 1 07/25/2023 ONCBCN TAKE HOME STUDY DRUG APPT 1 07/25/19 24 documented in this encounter Care Teams Sash Sticker Relationship Specialty Start Date End Date Julio César Briseno MD PCP - General 10/01/16 Eren Cr MD Referring Physician Medical Oncology 11/25/18 Yohana Bowen MD Radiation Oncologist Radiation Oncology 11/25/18 Alejo Mi MD [address] [address] Referring Physician Nephrology 03/07/23 documented as of this encounter
--- OUTSIDE RECORDS SUMMARY | 2024-06-25 22:10 | XMS_ITS | Encounter Summary ---
Author Organization [facility] Address [address] [place] [address] Phone Care Team Providers Care Interior Specialist Name Role Phone Julio César Briseno MD Primary Care Provider [phone] Eren Cr MD Unavailable [phone] Yohana Bowen MD Unavailable Alejo Mi MD Unavailable [phone] Encounter Details Date Type Department Care Team (Latest Contact Info) Description 06/24/2023 11:00 AM PUBLIC HEALTH PROFESSOR Procedure visit [facility] Otolaryngology [facility]. 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 - 06/24/2023 11:00 AM CST Name: La Chung : 1950 DOS: 06/24/2023 Provider: Ramirez Baltazar Audiogram completed per physician order. See scanned audiogram for results. Medical history was obtained by medical screener and reviewed. Results were reviewed with the patient by physician today. Procedures IC HEALTH PROFESSOR documented in this encounter Plan of Treatment Not on file documented as of this encounter Procedures Procedure Name Priority Date/Time Associated Diagnosis Comments AUDBASE RESULTS 06/24/2023 10:48 AM PUBLIC HEALTH PROFESSOR documented in this encounter Results * AUDBASE RESULTS (06/24/2023 10:48 AM PUBLIC HEALTH PROFESSOR) Provider Scanning AUDIOLOGY SERVICES ORDERABLES Final Result documented in this encounter Visit Diagnoses Diagnosis Mixed conductive and sensorineural hearing loss of right ear with restricted hearing of left ear- Primary documented in this encounter Care Teams Interior Specialist Relationship Specialty Start Date End Date Julio César Briseno MD PCP - General 10/01/16 Eren Cr MD Referring Physician Medical Oncology 11/25/18 Yohana Bowen MD Radiation Oncologist Radiation Oncology 11/25/18 Alejo Mi MD [address] [address] Referring Physician Nephrology 03/07/23 documented as of this encounter
--- OUTSIDE RECORDS SUMMARY | 2024-06-25 22:10 | XMS_ITS | Encounter Summary ---
Author Organization [facility] Address [address] [place] [address] Care Team Providers Care Hot Wound Spring Production Supervisor Name Role Phone Julio César Briseno MD Primary Care Provider [phone] Eren Cr MD Unavailable [phone] Yohana Bowen MD Unavailable Alejo Mi MD Unavailable [phone] Reason for Referral * Diagnostic Imaging (Routine) - Closed Specialty Diagnoses / Procedures Referred By Contellen t Referred To Contact Diagnoses Screening mammogram, encounter for Procedures Screening Mammogram Bilateral W Seng Screening Mammogram, Self [facility] Referral ID Status Reason Start Date Expiration Date Visits Re quested Visits Authorized [id number] Closed 04/23/2023 05/22/2024 1 1 CIAL ADMINISTRATIVE ASSISTANT Reason for Visit * Diagnostic Imaging (Routine) - Closed Specialty Diagnoses / Procedures Referred By Contac t Referred To Contact Diagnoses Screening mammogram, encounter for Procedures Screening Mammogram Bilateral W Seng Screening Mammogram, Self [facility] Referral ID Status Reason Start Date Expiration Date Visits Re quested Visits Authorized [id number] Closed 04/23/2023 05/22/2024 1 1 Encounter Details Date Type Department Care Team (Latest Contact Info) Description 06/13/2023 1:02 PM JUDICIAL ADMINISTRATIVE ASSISTANT - 06/13/2023 11:59 PM JUDICIAL ADMINISTRATIVE ASSISTANT Hospital Encounter [facility] Breast [facility]) [address] [place] [address] Screening mammogram, encounter for Discharge Disposition: Discharge to home or self [...] on file Legal Sex Female 2:41 PM JUDICIAL ADMINISTRATIVE ASSISTANT Gender Identity Not on file Sexual [...] mouth nightly 0.9 % sodium chloride ([facility] sodium chloride 0.9%) injectionIndicat ions:line care Infuse 10 mL into a venous catheter once a week On saturday 4 0.9 % sodium chloride (sodium chloride 0.9%) 0.9% infusion 05/22/2023 4 ascorbic acid, vitamin C, 500 mg capsuleIndicatio ns:supplement 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 Avoid Jas's Wort, grapefruit products and [place] oranges while on treatment. placed on hold 09/26/22 for covid 01/29/2022 4 levothyroxine (SYNTHROID) 88 mcg tabletIndication s:Hypothyroidism due to medication Take 1 tablet (88 mcg total) by mouth professor of geology before breakfast 90 tablet 1 10/12/2022 4 LORazepam (ATIVAN) 0.5 mg tabletIndication s:MRI scan Take 1 tablet 1 hour prior to MRI exam, may repeat dose if needed 15 minutes prior to MRI 2 tablet 08/21/2021 4 montelukast (SINGULAIR) 10 mg tablet Take [...] pump set at 300mL/Hr once weekly.- Saturday09/14/2022 triamcinolone (KENALOG) 0.1 % ointment Apply to itchy rash on hands twice daily until improved 454 g 1 05/06/2020 4 documented as of this encounter Discharge Disposition Disposition Code Departure Means Destination Discharge to home or self care documented in this encounter Plan of Treatment Not on file documented as of this encounter Procedures Procedure Name Priority Date/Time Associated Diagnosis Comments SCREENING MAMMOGRAM BILATERAL W SENG Schedule Routine, Read Routine (OP Routine) 06/13/2023 2:01 PM JUDICIAL ADMINISTRATIVE ASSISTANT Screening mammogram, encounter for documented in this encounter Results * Screening Mammogram Bilateral W Seng (06/13/2023 2:01 PM JUDICIAL ADMINISTRATIVE ASSISTANT) Anatomical Region Laterality Modality Breast Bilateral Mammography Narrative 06/14/2023 12:40 PM JUDICIAL ADMINISTRATIVE ASSISTANT Mammogram Technique: Bilateral Digital Breast Tomosynthesis, Bilateral C-view 2D Screening mammogram. ??Views obtained: ??bilateral craniocaudal and bilateral mediolateral oblique. ??Computer Aided Detection was performed. Mammogram Findings: The present examination has been compared to prior imaging studies performed at [facility] on 12/21/2019, 01/23/2021 and 04/02/2022. [...] compared to prior imaging studies performed at [facility] on 12/21/2019, 01/23/2021 and 04/02/2022. There are scattered areas of fibroglandular density. There is no suspicious abnormality in either breast. Impression: There is no mammographic evidence of malignancy. Annual screening mammography is recommended. OVERALL FINAL ASSESSMENT: BI-RADS CATEGORY 1: Negative. us Self Screening Mammogram IMG MAMMO PROCEDURES Fi nal Result documented in this encounter Visit Diagnoses Diagnosis Screening mammogram, encounter for documented in this encounter Care Teams Hot Wound Spring Production Supervisor Relationship Specialty Start Date End Date Julio César Briseno MD PCP - General 10/01/16 Eren Cr MD Referring Physician Medical Oncology 11/25/18 Yohana Bowen MD Radiation Oncologist Radiation Oncology 11/25/18 Alejo Mi MD [address] [address] Referring Physician Nephrology 03/07/23 documented as of this encounter
--- OUTSIDE RECORDS SUMMARY | 2024-06-25 22:10 | XMS_ITS | Encounter Summary ---
Author Organization [facility] Address [address] [place] [address] Phone Care Team Providers Care Extender Name Role Phone Julio César Briseno MD Primary Care Provider [phone] Eren Cr MD Unavailable [phone] Yohana Bowen MD Unavailable [place] Ramos MD Unavailable [phone] Reason for Visit * Episode Based Medications (Routine) - Closed Specialty Diagnoses / Procedures Referred By Contac t Referred To Contact Diagnoses Neuro-endocrine carcinoma (HCC) Procedures study [id number] phase III cabozantinib Eren Cr MD [address] [place] [address] Phone: tel: fax: [facility] at [facility] and [facility] [address] [facility] 7th [place] [address] Phone: tel: Referral ID Status Reason Start Date Expiration Date Visits Re quested Visits Authorized [id number] Closed 06/21/2021 06/26/2024 1 99 Encounter Details Date Type Department Care Team (Latest Contact Info) Description 06/27/2023 11:30 AM MANAGER PAPER Research Med Pick-Up/CTRU Gerontology Aide [facility] [address] [place] [address] Neuro-endocrine carcinoma (HCC) (Primary Dx) Social History [...] file Legal Sex Female 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 PAPER Gender Identity Not on file Sexual Orientation [...] Ordered Date First Ordered Date INV-[facility] cabozantinib (08-122/[id number]) tablet 20 mg 1 06/27/2023 Nursing Count Last Ordered Date First Orde red Date ONCBCN OK TO TREAT 1 06/27/2023 ONCBCN PROVIDER COMMUNICATION 10 1 06/27/20 23 ONCBCN STUDY COMMUNICATION 1 1 06/27/2023 ONCBCN TREATMENT PARAMETERS 1 1 06/27/2023 RESEARCH STUDY CLARIFICATION ORDER 1 2022 Appointment Requests Count Last Ordered Date Fi rst Ordered Date ONCBCN TAKE HOME STUDY DRUG APPT 1 06/27/20 documented in this encounter Care Teams Extender Relationship Specialty Start Date End Date Julio César Briseno MD PCP - General 10/01/16 Eren Cr MD Referring Physician Medical Oncology 11/25/18 Yohana Bowen MD Radiation Oncologist Radiation Oncology 11/25/18 Alejo Mi MD [address] [address] Referring Physician Nephrology 03/07/23 documented as of this encounter
--- OUTSIDE RECORDS SUMMARY | 2024-06-25 22:10 | XMS_ITS | Encounter Summary ---
Author Organization [facility] Address [address] [place] [address] Phone Care Team Providers Care Housing Assistant Property Manager Name Role Phone Julio César Briseno MD Primary Care Provider [phone] Eren Cr MD Unavailable [phone] Yohana Bowen MD Unavailable [place] Ramos MD Unavailable [phone] Reason for Visit * Episode Based Medications (Routine) - Closed Specialty Diagnoses / Procedures Referred By Contac t Referred To Contact Diagnoses Neuro-endocrine carcinoma (HCC) Procedures study [id number] phase III cabozantinib Eren Cr MD [address] [place] [address] Phone: tel: fax: [facility] at [facility] and [facility] [address] [facility] 7th [place] [address] Phone: tel: Referral ID Status Reason Start Date Expiration Date Visits Re quested Visits Authorized [id number] Closed 06/21/2021 06/26/2024 1 99 Encounter Details Date Type Department Care Team (Latest Contact Info) Description 05/28/2023 12:00 PM ASSEMBLER MECHANICAL ORDNANCE Research Med Pick-Up/CTRU Senior Oracle Database Administrator [facility] On[facility] [address] [place] [address] Neuro-endocrine carcinoma (HCC) Social History Tobacco Use [...] on file Legal Sex Female 2:41 PM ASSEMBLER MECHANICAL ORDNANCE Gender Identity Not on file Sexual Orientation [...] ONCBCN TAKE HOME STUDY DRUG APPT 1 05/28/20 23 documented in this encounter Care Teams Housing Assistant Property Manager Relationship Specialty Start Date End Date Julio César Briseno MD PCP - General 10/01/16 Eren Cr MD Referring Physician Medical Oncology 11/25/18 Yohana Bowen MD Radiation Oncologist Radiation Oncology 11/25/18 Alejo Mi MD [address] [place] [address] Referring Physician Nephrology 03/07/23 documented as of this encounter
--- OUTSIDE RECORDS SUMMARY | 2024-06-25 22:10 | XMS_ITS | Encounter Summary ---
Author Organization [facility] Address [address] [place] [address] Phone Care Team Providers Care Ground Equipment Mechanic Name Role Phone Julio César Briseno MD Primary Care Provider [phone] Eren Cr MD Unavailable [phone] Yohana Bowen MD Unavailable [place] Ramos MD Unavailable [phone] Reason for Visit * Episode Based Medications (Routine) - Closed Specialty Diagnoses / Procedures Referred By Contac t Referred To Contact Diagnoses Neuro-endocrine carcinoma (HCC) Procedures study [id number] phase III cabozantinib Eren Cr MD [address] [place] [address] Phone: tel: fax: [facility] and [facility] [address] [facility] 7th [place] [address] Phone: tel: Referral ID Status Reason Start Date Expiration Date Visits Re quested Visits Authorized [id number] Closed 06/21/2021 06/26/2024 1 99 Encounter Details Date Type Department Care Team (Latest Contact Info) Description 05/02/2023 1:00 PM CDT Research Med Pick-Up/CTRU [facility] [address] [place] [address] Neuro-endocrine carcinoma (HCC) (Primary Dx) Social History [...] on file Legal Sex Female 2:41 PM SKILLED LABOR Gender Identity Not on file Sexual Orientation [...] Ordered Date First Ordered Date INV-[facility] cabozantinib (/[id number]) tablet 20 mg 1 05/02/2023 Nursing Count Last Ordered Date First Orde red Date ONCBCN STUDY COMMUNICATION 1 1 05/02/2023 ONCBCN TREATMENT PARAMETERS 1 1 05/02/2023 RESEARCH STUDY CLARIFICATION ORDER 1 2022 Appointment Requests Count Last Ordered Date Fi rst Ordered Date ONCBCN TAKE HOME STUDY DRUG APPT 1 05/02/20 documented in this encounter Care Teams Ground Equipment Mechanic Relationship Specialty Start Date End Date Julio César Briseno MD PCP - General 10/01/16 Eren Cr MD Referring Physician Medical Oncology 11/25/18 Yohana Bowen MD Radiation Oncologist Radiation Oncology 11/25/18 Alejo Mi MD [address] [address] Referring Physician Nephrology 03/07/23 documented as of this encounter
--- OUTSIDE RECORDS SUMMARY | 2024-06-25 22:10 | XMS_ITS | Encounter Summary ---
Author Organization [facility] Address [address] [place] [address] Phone Care Team Providers Care Therapist Radiation Name Role Phone Julio César Briseno MD Primary Care Provider [phone] Eren Cr MD Unavailable [phone] Yohana Bowen MD Unavailable [place] Ramos MD Unavailable [phone] Reason for Visit * Reason Comments OP Infusion * Episode Based Medications (Routine) - Authorized Specialty Diagnoses / Procedures Referred By Contac t Referred To Contact Oncology Diagnoses 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) Procedures [place] OCTREOTIDE INJECTION, DEPOT Octreotide 28 Day Cycles - Carcinoid Eren Cr MD [address] [facility] [facility] [address] [place] [address] Phone: tel: fax: [address] [address] Phone: tel: fax: Referral ID Status Reason Start Date Expiration Date V isits Requested Visits Authorized [id number] Authorized 11/28/2017 02/05/2025 1 150 Encounter Details Date Type Department Care Team (Late st Contact Info) Description 06/27/2023 11:30 AM MERCHANDISING STOCK ASSOCIATE Infusion [facility] Oncology [address] [place] [address] Dehydration (Primary Dx); Neuroendocrine carcinoma (HCC); Malignant [...] on file Legal Sex Female 2:41 PM MERCHANDISING STOCK ASSOCIATE Gender Identity Not on file Sexual Orientation Straight 02/19/2021 9: 29 AM CDT Occupation Industry Job Start Date Job End Date retired Not on file Not on file Not on file documented as of this encounter Nursing Notes * Sabrina Dumont, [place] - 06/27/2023 11:30 AM CST Oncology Nursing Note [facility] La Chung is a 72 y.o. female who presents for fluids. Pre-treatment Nursing Assessment Nursing Assessment LOC: Alert Fatigue: Occassional Any falls since your last visit?: No Orientation: Oriented x4 Behavior: Calm Speech: Clear Language: No aphasia Pt states has potential to be ?: N/A Appetite: Good Nausea/Vomiting: No Diarrhea: No Constipation: No Additional Notes: BP: 154/73 Temp: 36.2 ??C (97.1 ??F) Temp src: Temporal Pulse: 74 Resp: 16 SpO2: 97 % Weight: 79.1 kg (174 lb 6.4 oz) Pain Score: 0 - No pain Treatment Patient: met treatment parameters Pre blood return: Brisk La Chung tolerated treatment well. Patient was frequently [...] Ambulatory Accompanied by: Spouse Discharged To: Home HANDISING STOCK ASSOCIATE * Sabrina Dumont RN - 06/27/2023 11:30 AM CST Oncology Nursing Note [facility] La Chung is a 72 y.o. female who presents for the following injection: Octreotide . Nursing Assessment Nursing Assessment LOC: Alert Fatigue: Occassional Any falls since your last visit?: No Orientation: Oriented x4 Behavior: Calm Speech: Clear Language: No aphasia Pt states has potential to be ?: N/A Appetite: Good Nausea/Vomiting: No Diarrhea: No Constipation: No Additional Notes: BP: 154/73 Temp: 36.2 ??C (97.1 ??F) Temp src: Temporal Pulse: 74 Resp: 16 SpO2: 97 % Weight: 79.1 kg (174 lb 6.4 oz) Patient: does not require labs today. La Chung tolerated injection well Additional Notes: Discharge Plan Discharge instructions given to patient. Discharge Mode: Ambulatory Accompanied by: Spouse Discharged To: Home HANDISING STOCK ASSOCIATE documented in this encounter Plan of Treatment [...] mg 30 mg, intramuscular, Once, On Lydia 06/27/23 at 1145, For 1 dose, Refrigerate. For IM intragluteal administration only- alternate gluteal sites. 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) Given 06/27/2023 1:22 PM MERCHANDISING STOCK ASSOCIATE 30 mg Left Dorsogluteal/B uttock sodium chloride 0.9% bolus 1,000 mL 1,000 mL, intravenous, at 500 mL/hr, Administer over 2 Hours, Once, On Lydia 06/27/23 at 1145, For 1 doseIndications:Neuroendo crine carcinoma (HCC),Dehydration New Bag 06/27/2023 11:08 AM MERCHANDISING STOCK ASSOCIATE 1,000 mL 500 mL/hr documented in this encounter Orders Appointment Requests Count Last Ordered Date Fi rst Ordered Date ONCBCN INFUSION APPT REQUEST 1 06/27/2023 documented in this encounter Care Teams Therapist Radiation Relationship Specialty Start Date End Date Julio César Briseno MD PCP - General 10/01/16 Eren Cr MD Referring Physician Medical Oncology 11/25/18 Yohana Bowen MD Radiation Oncologist Radiation Oncology 11/25/18 Alejo Mi MD [address] [address] Referring Physician Nephrology 03/07/23 documented as of this encounter
--- OUTSIDE RECORDS SUMMARY | 2024-06-25 22:10 | XMS_ITS | Encounter Summary ---
Author Organization [facility] Address [address] [place] [address] Phone Care Team Providers Care Traveling Construction Superintendent Name Role Phone Julio César Briseno MD Primary Care Provider [phone] Eren Cr MD Unavailable Yohana Bowen MD Unavailable Alejo Mi MD Unavailable Encounter Details Date Type Department Care Team (Late st Contact Info) Description 06/11/2023 3:30 PM RUSSIAN LANGUAGE PROFESSOR Office Visit [facility] 5th [place] [address] [place] [address] Alejo Mi MD [facility] [address] [place] [address] Stage 3b chronic kidney disease (HCC) (Primary Dx) Social History Tobacco Use [...] on file Legal Sex Female 2:41 PM RUSSIAN LANGUAGE PROFESSOR Gender Identity Not on file Sexual Orientation Straight 02/19/2021 9: 29 AM CDT Occupation Industry Job Start Date Job End Date retired Not on file Not on file Not on file documented as of this encounter Last Filed Vital Signs Vital Sign Reading Time Taken Comments Blood Pressure 110/72 06/11/2023 3:18 PM RUSSIAN LANGUAGE PROFESSOR Pulse 76 06/11/2023 3:18 PM RUSSIAN LANGUAGE PROFESSOR Temperature - - Respiratory Rate - - Oxygen Saturation - - Inhaled Oxygen Concentration - - Weight 77 kg (169 lb 12.8 oz) 06/11/2023 3:18 PM RUSSIAN LANGUAGE PROFESSOR Height 160 cm (5' 3 ) 06/11/2023 3:18 PM RUSSIAN LANGUAGE PROFESSOR Body Mass Index 30.08 06/11/2023 3:18 PM RUSSIAN LANGUAGE PROFESSOR documented in this encounter Ordered Prescriptions Prescription Sig Dispense Quantity Refills Last Filled Start Date End Date ergocalciferol (VITAMIN D) 50,000 unit capsule Take 1 capsule (50,000 Units total) by mouth once a week 12 capsule 06/11/2023 4 documented in this encounter Progress Notes * Livan Petersen MD PhD - 06/11/2023 3:30 PM CST NEPHROLOGY OFFICE VISIT NAME: LA CHUNG DATE OF : 1950 DATE OF VISIT:06/11/2023 HISTORY REASON FOR CONSULTATION: Evaluation and management [...] will follow up on this with her clinical project assistant or oncologist.. She also stated that she is getting weekly injections of denosumab however has not been able to getthis medication the last 3 times due to electrolyte abnormality. She is on clear which electrolyte abnormality days she does states that when she goes get the infusion that she is turned away after her labs are done. PAST MEDICAL HISTORY: Primary neuroendocrine tumor HTN MEDICATIONS: Current Outpatient Medications on File Prior to Visit Medication Sig 0.9 % sodium chloride ([facility] sodium chloride 0.9%) injection Infuse 10 mL into a venous catheter once a week On saturday 0.9 % sodium chloride (sodium chloride 0.9%) 0.9% infusion ascorbic acid, vitamin C, 500 mg capsule Take 1 tablet by mouth maintenance mechanic millwright before breakfast cholecalciferol (VITAMIN D-3) 1,000 unit Take 1 tablet/capsule (1,000 Units total) by mouth daily (Patient taking differently: Take 1 tablet/capsule (1,000 Units total) by mouth every morning) clotrimazole-betamethasone (LOTRISONE) cream Apply 1 Application topically daily as needed (rash) coenzyme [id number] 100-5 mg-unit capsule Take 1 tablet by mouth maintenance mechanic millwright before breakfast denosumab (Xgeva) 120 mg/1.7 mL [...] (30 mg total) by mouth every morning) heparin 100 unit/mL solution Infuse 5 mL (500 Units total) into a venous catheter once a week Fluids every -Heparin to flush [facility] cabozantinib/placebo (/[id number]) 20 mg tablet Take 1 tablet (20 mg total) bymouth nightly Take on an empty stomach (no food for 2 hours before and 1 hour after each dose). Avoid [place]'s Wort, grapefruit products and [place] oranges while on treatment. placed on hold 09/26/22 for covid levothyroxine (SYNTHROID) 88 mcg tablet Take 1 tablet (88 mcg total) by mouth maintenance mechanic millwright before breakfast (Patient taking differently: Take 1 tablet (88 mcg total) by mouth maintenance mechanic millwright before breakfast) lidocaine-prilocaine (lidocaine-prilocaine) cream Apply topically [...] if needed 15 minutes prior to MRI) octreotide (SandoSTATIN) 100 mcg/mL injection Inject 1 [...] venous catheter once a week Patient to [id number] of Normal Saline via CADD Coreas pump set at 300mL/Hr once weekly.- Saturday fluticasone propionate (FLONASE) 50 mcg/actuation nasal spray Administer 2 sprays into each nostrildaily as needed for rhinitis or allergies (Patient not taking: Reported on 06/11/2023) montelukast (SINGULAIR) 10 mg tablet Take 1 tablet (10 mg total) by mouth as needed (allergies) (Patient not taking: Reported on 06/11/2023) prochlorperazine (COMPAZINE) 10 mg tablet Take 1 tablet (10 mg total) by mouth every 6 (six) hours as needed for nausea (Patient taking differently: Take 1 tablet (10 mg total) by mouth every 6 (six)hours as needed for nausea or vomiting) triamcinolone (KENALOG) 0.1 % ointment Apply to itchy rash on hands twice daily until improved (Patient not taking: Reported on 06/11/2023) [DISCONTINUED] amLODIPine (NORVASC) 5 mg tablet Take 0.5 tablets (2.5 mg total) by mouth nightly (Patient not taking: Reported on 03/06/2023) [DISCONTINUED] ciprofloxacin-dexAMETHasone (CIPRODEX) otic suspension Administer 4 drops into the right ear 2 (two) times a day Begin 1 week post op Current Facility-Administered Medications on File Prior to Visit Medication L-arginine 1.25%/L-lysine 1.25% infusion 1,000 mL ALLERGIES: Allergies Allergen Reactions Morphine Blisters Ezetimibe-Simvastatin [...] pleasant and in no apparent distress BP 110/72 (BP Location: Left arm, Patient Position: Sitting) Pulse 76 Ht 160 cm (5' 3 ) Wt 77kg (169 lb 12.8 oz) BMI 30.08 kg/m?? HENT: MM pink and moist. Oropharynx clear. EYES: sclera anicteric CVS: S1 S2 normal, no murmurs, rub or gallop. No LE edema. LUNGS: clear to auscultation bilaterally ABD: Soft, non-tender, BS normal. No masses SKIN: No rash RAIL WASHER: Alert Ox3. No focal motor deficits PSYCH: Pleasant, cooperative, appropriate affect. MSK: No joint swelling or tenderness LABORATORY DATA Sodium Date Value Ref Range Status 05/28/2023 137 135 - 145 mmol/L Final Comment: Testing performed by: [address] [address] 05/28/2023 138 135 - 145 mmol/L Final Comment: Testing performed by: [address] [id number] 05/02/2023 138 135 - 145 mmol/L Final Comment: Testing performed by: [address] [address] Potassium, pl Date Value Ref Range Status 05/28/2023 4.0 3.3 - 4.9 mmol/L Final 05/28/2023 4.0 3.3 - 4.9 mmol/L Final 05/02/2023 4.2 3.3 - 4.9 mmol/L Final CO2 Date Value Ref Range Status 05/28/2023 26 22 - 32 mmol/L Final 05/28/2023 24 22 - 32 mmol/L Final 05/02/2023 25 22 - 32 mmol/L Final BUN Date Value Ref Range Status 05/28/2023 12 6 - 25 mg/dL Final 05/28/2023 12 6 - 25 mg/dL Final 05/02/2023 16 6 - 25 mg/dL Final Creatinine Date Value Ref Range Status 05/28/2023 1.19 (H) 0.60 - 1.10 mg/dL Final 05/28/2023 1.19 (H) 0.60 - 1.10 mg/dL Final 05/02/2023 1.22 (H) 0.60 - 1.10 mg/dL Final Albumin Date Value Ref Range Status 05/28/2023 4.1 3.5 - 5.0 g/dL Final 05/28/2023 4.0 3.5 - 5.0 g/dL Final 05/02/2023 3.9 3.5 - 5.0 g/dL Final Calcium Date Value Ref Range Status 05/28/2023 9.7 8.5 - 10.3 mg/dL Final 05/28/2023 9.5 8.5 - 10.3 mg/dL Final 05/02/2023 9.7 8.5 - 10.3 mg/dL Final Phosphorus, pl Date Value Ref Range Status 05/28/2023 1.9 (L) 2.3 - 4.5 mg/dL Final Comment: Testing performed by: [facility], [address] [place] [id number] 05/28/2023 2.1 (L) 2.3 - 4.5 mg/dL Final Comment: Testing performed by: [facility], [address] [place] [id number] 05/02/2023 1.9 (L) 2.3 - 4.5 mg/dL Final Comment: Testing performed by: [facility], [address] [place] [id number] PTH Date Value Ref Range Status 10/18/2022 210 (H) 15 - 65 pg/mL Final 04/14/2019 554 (H) 15 - 65 pg/mL Final Vitamin D 25-OH Date Value Ref Range Status 05/28/2023 19 (L) 30 - 80 ng/mL Final 05/02/2023 17 (L) 30 - 80 ng/mL Final 04/04/2023 17 (L) 30 - 80 ng/mL Final Hgb Date Value Ref Range Status 05/28/2023 11.6 (L) 11.9 - 15.5 g/dL Final Comment: Testing performed by: [facility], [address] [place] [id number] Interpretive Data A reference range for this assay has not been established for patients with an unknown legal sex. Please refer to the laboratory test catalog for established sex-specific reference intervals. Current interpretive data was last revised on 2023. 05/28/2023 11.3 (L) 11.9 - 15.5 g/dL Final Comment: Testing performed by: [facility], [address] [place] [id number] Interpretive Data A reference range for this assay has not been established for patients with an unknown legal sex. Please refer to the laboratory test catalog for established sex-specific reference intervals. Current interpretive data was last revised on 2023. 05/02/2023 10.9 (L) 11.9 - 15.5 g/dL Final Comment: Testing performed by: [facility], [address] [place] [id number] Interpretive Data A reference range for this assay has not been established for patients with an unknown legal sex. Please refer to the laboratory test catalog for established sex-specific reference intervals. Current interpretive data was last revised on 2023. Iron Date Value Ref Range Status 11/15/2022 67 35 - 145 mcg/dL Final 11/04/2015 51 35 - 145 mcg/dl Transferrin saturation Date Value Ref Range Status 11/15/2022 24 20 - 50 % Final 11/04/2015 14 (L) 20 - 50 % Ferritin Date Value Ref Range Status 11/04/2015 39 15 - 150 ng/ml Protein/creatinine ratio Date Value Ref Range Status 05/02/2023 74.1 0.0 - 180.0 mg/g CR Final 03/07/2023 94.0 0.0 - 180.0 mg/g CR Final 01/14/2023 62.9 0.0 - 180.0 mg/g CR Final DATE [...] this or any previous visit. No results found. However, due to the size of the patient record, not all encounters were searched.Please check Results Review for a complete set of results. ASSESSMENT AND PLAN Chronic kidney disease Stage [...] her PTH after she has completed replacement -vitamin-D 02639 units once weekly for 12 weeks -reassess PTH after completion of vitamin-D DISPOSITION: The patient will return follow up in 6 months. Livan Petersen MD, PhD PGY3 Internal Medicine Cosigned by Alejo Mi MD at 06/12/2023 10:07 AM RUSSIAN LANGUAGE PROFESSOR IAN LANGUAGE PROFESSOR IAN LANGUAGE PROFESSOR Associated attestation - Alejo Mi MD - 06/12/2023 10:07 AM RUSSIAN LANGUAGE PROFESSOR I have seen and examined the patient on 06/11/2023. I agree with the findings and plan of care as documented in the nephrology fellows's note. Alejo Mi MD documented in this encounter Plan of Treatment Not on file documented as of this encounter Visit Diagnoses Diagnosis Stage 3b chronic kidney disease (HCC)- Primary documented in this encounter Discontinued Medications Medication Sig Discontinue Reason Start Date End Da te amLODIPine (NORVASC) 5 mg tabletIndications:hype rtension Take 0.5 tablets (2.5 mg total) by mouth nightly Therapy completed 07/27/2022 06/11/2023 ciprofloxacin-dexAMETH asone (CIPRODEX) otic suspension Administer 4 drops into the right ear 2 (two) times a day Begin 1 week post op Therapy completed 02/05/2023 06/11/2023 documented as of this encounter Historical Medications * This list may reflect changes made after this encounter. Medication Sig Dispense Quantity Refills Last Filled Start D ate End Date 0.9 % sodium chloride (sodium chloride 0.9%) 0.9% infusion 05/22/202306/20 added in this encounter Care Teams Traveling Construction Superintendent Relationship Specialty Start Date End Date Julio César Briseno MD PCP - General 10/01/16 Eren Cr MD Referring Physician Medical Oncology 11/25/18 Yohana Bowen MD Radiation Oncologist Radiation Oncology 11/25/18 Alejo Mi MD [address] [place] [address] Referring Physician Nephrology 03/07/23 documented as of this encounter
--- OUTSIDE RECORDS SUMMARY | 2024-06-25 22:10 | XMS_ITS | Encounter Summary ---
Author Organization [facility] Address [address] [place] [address] Phone Care Team Providers Care Facility Worker Name Role Phone Julio César Briseno MD Primary Care Provider Eren Cr MD Unavailable [phone] Yohana Bowen MD Unavailable Alejo Mi MD Unavailable [phone] Encounter Details Date Type Department Care Team (Late st Contact Info) Description 06/19/2023 2:30 PM WOOD BOATBUILDER APPRENTICE Infusion [facility] Oncology [address] [facility] [address] [place] [address] Dehydration (Primary Dx); Neuroendocrine carcinoma [...] file Legal Sex Female 2:41 PM WOOD BOATBUILDER APPRENTICE Gender Identity Not on file Sexual Orientation Straight 02/19/2021 9: 29 AM CDT Occupation Industry Job Start Date Job End Date retired Not on file Not on file Not on file documented as of this encounter Last Filed Vital Signs Vital Sign Reading Time Taken Comments Blood Pressure 142/80 06/19/2023 2:31 PM WOOD BOATBUILDER APPRENTICE Pulse 80 06/19/2023 2:31 PM WOOD BOATBUILDER APPRENTICE Temperature 36.7 ??C (98 ??F) 06/19/2023 2:31 PM WOOD BOATBUILDER APPRENTICE Respiratory Rate 16 06/19/2023 2:31 PM WOOD BOATBUILDER APPRENTICE Oxygen Saturation 96% 06/19/2023 2:31 PM WOOD BOATBUILDER APPRENTICE Inhaled Oxygen Concentration - - Weight 79 kg (174 lb 2.6 oz) 06/19/2023 2:31 PM WOOD BOATBUILDER APPRENTICE Height - - Body Mass Index 30.85 06/11/2023 3:18 PM WOOD BOATBUILDER APPRENTICE documented in this encounter Nursing Notes * Callie Yepez RN - 06/19/2023 2:30 PM CST Pt presents for fluids, Port accessed in pod with positive blood return, 1L NS infused over 2 hours, tolerated well. Port de accessed and band aid placed over port site and pt D/C in stable condition. BOATBUILDER APPRENTICE documented in this encounter Plan of Treatment [...] mL/hr, Administer over 2 Hours, Once, On Sat06/19/23 at 1530, For 1 doseIndications:Neuroendocr ine carcinoma (HCC),Dehydration New Bag 06/19/2023 2:53 PM WOOD BOATBUILDER APPRENTICE 1,000 mL 500 mL/hr documented in this encounter Orders Medications Ordered That Brett ht Not Have Been Administered Count Last Ordered Date First Ordered Date sodium chloride 0.9% bolus 1,000 mL 2 06/19 Appointment Requests Count Last Ordered Date Fi rst Ordered Date ONCBCN INFUSION APPT REQUEST 1 06/19/2023 documented in this encounter Care Teams Facility Worker Relationship Specialty Start Date End Date Julio César Briseno MD PCP - General 10/01/16 Eren Cr MD Referring Physician Medical Oncology 11/25/18 Yohana Bwoen MD Radiation Oncologist Radiation Oncology 11/25/18 Alejo Mi MD [address] [address] Referring Physician Nephrology 03/07/23 documented as of this encounter
--- OUTSIDE RECORDS SUMMARY | 2024-06-25 22:10 | XMS_ITS | Encounter Summary ---
Author Organization [facility] Address [address] [place] [address] Phone Care Team Providers Care Cash Office Worker Name Role Phone Julio César Briseno MD Primary Care Provider [phone] Eren Cr MD Unavailable [phone] Yohana Bowen MD Unavailable Alejo Mi MD Unavailable [phone] Encounter Details Date Type Department Care Team (Late st Contact Info) Description 05/02/2023 Orders Only [facility] Oncology [address] [place] [address] Eren Cr MD [address] [place] [address] Social History Tobacco Use Types Packs/Day Years [...] on file Legal Sex Female 2:41 PM PASTRY MIXER Gender Identity Not on file Sexual Orientation Straight 02/19/2021 9: 29 AM CDT Occupation Industry Job Start Date Job End Date retired Not on file Not on file Not on file documented as of this encounter Plan of Treatment Not on file documented as of this encounter Visit Diagnoses Not on filedocumented in this encounter Care Teams Cash Office Worker Relationship Specialty Start Date End Date Julio César Briseno MD PCP - General 10/01/16 Eren Cr MD Referring Physician Medical Oncology 11/25/18 Yohana Bowen MD Radiation Oncologist Radiation Oncology 11/25/18 Alejo Mi MD [address] [address] Referring Physician Nephrology 03/07/23 documented as of this encounter
--- OUTSIDE RECORDS SUMMARY | 2024-06-25 22:10 | XMS_ITS | Encounter Summary ---
Author Organization [facility] Address [address] [place] [address] Phone Care Team Providers Care Web Weaver Name Role Phone Julio César Briseno MD Primary Care Provider Eren Cr MD Unavailable [phone] Yohana Bowen MD Unavailable Alejo Mi MD Unavailable [phone] Encounter Details Date Type Department Care Team (Late st Contact Info) Description 06/17/2023 Orders Only [facility] Oncology [address] [place] [address] Eren Cr MD [address] [place] [address] Neuroendocrine carcinoma (HCC) (Primary Dx); Malignant neoplasm [...] on file Legal Sex Female 2:41 PM LIGHT ADJUSTER Gender Identity Not on file Sexual [...] rst Ordered Date ONCBCN INFUSION APPT REQUEST 5 07/17/2023 06/19/2023 documented in this encounter Care Teams Web Weaver Relationship Specialty Start Date End Date Julio César Briseno MD PCP - General 10/01/16 Eren Cr MD Referring Physician Medical Oncology 11/25/18 Yohana Bowen MD Radiation Oncologist Radiation Oncology 11/25/18 Alejo Mi MD [address] [address] Referring Physician Nephrology 03/07/23 documented as of this encounter
--- OUTSIDE RECORDS SUMMARY | 2024-06-25 22:10 | XMS_ITS | Encounter Summary ---
Author Organization [facility] Healthcare Address [address] [place] [address] Care Team Providers Care Thread Puller Name Role Phone Julio César Briseno MD Primary Care Provider [phone] Eren Cr MD Unavailable [phone] Yohana Bowen MD Unavailable Alejo Mi MD Unavailable [phone] Encounter Details Date Type Department Care Team (Latest Contact Info) Description 05/28/2023 2:40 PM STOREKEEPER ENGINEERING - 05/28/2023 11:59 PM STOREKEEPER ENGINEERING Hospital Encounter [facility] [address] [place] [id number] Neuro-endocrine carcinoma (HCC); Neuroendocrine carcinoma (HCC); 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); Hypothyroidism due to medication; Hematuria, unspecified type Discharge Disposition: Discharge to home [...] on file Legal Sex Female 2:41 PM STOREKEEPER ENGINEERING Gender Identity Not on file Sexual Orientation [...] nightly 0.9 % sodium chloride ([facility] sodium chloride 0.9%) injectionIndicat ions:line care Infuse 10 mL into a venous catheter once a week On saturday 4 0.9 % sodium chloride (sodium chloride 0.9%) 0.9% infusion 05/22/2023 4 amLODIPine (NORVASC) 5 mg tabletIndication s:hypertension Take 0.5 tablets (2.5 mg total) by mouth nightly 07/27/2022 3 ascorbic acid, vitamin C, 500 mg capsuleIndicatio ns:supplement Take 1 tablet by mouth convertible power shovel operator before breakfast 07/04/2016 4 ciprofloxacin-de xAMETHasone (CIPRODEX) otic suspension Administer 4 drops into the right ear 2 (two) times a day Begin 1 week post op 7.5 mL 3 02/05/2023 3 clotrimazole-bet amethasone (LOTRISONE) cream Apply 1 Application topically daily as needed (rash) 4 coenzyme [id number] E 100-5 mg-unit capsuleIndicatio ns:supplement Take 1 tablet by mouth convertible power shovel operator before breakfast 4 diphenoxylate-at ropine (LOMOTIL) 2.5-0.025 mg per tabletIndication s:Chemotherapy-I nduced Diarrhea Take 1 tablet by mouth 4 (four) times a day as needed for diarrhea 90 tablet 02/14/[address] (CYMBALTA) 30 mg capsule Take 1 capsule (30 mg total) by mouth daily 30 capsule 2 04/24/2019 4 fluticasone propionate (FLONASE) 50 mcg/actuation nasal [...] dose).?? Avoid Jas's Wort, grapefruit products and Van oranges while on treatment. placed on hold 09/26/22 for covid 01/29/2022 4 levothyroxine (SYNTHROID) 88 mcg tabletIndication s:Hypothyroidism due to medication Take 1 tablet (88 mcg total) by mouth convertible power shovel operator before breakfast 90 tablet 1 10/12/2022 4 [...] Priority Date/Time Associated Diagnosis Comments EGFR STAT 05/28/2023 2:10 PM STOREKEEPER ENGINEERING 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) DIFFERENTIAL AUTO Routine 05/28/2023 2:1 0 PM STOREKEEPER ENGINEERING 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) CHROMOGRANIN A Routine 05/28/2023 2:10 PM STOREKEEPER ENGINEERING 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) CBC WITH AUTO DIFFERENTIAL Routine 05/28/2023 2:10 PM STOREKEEPER ENGINEERING 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) VITAMIN D 25 HYDROXY Routine 05/28/2023 2:10 PM STOREKEEPER ENGINEERING 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) PHOSPHORUS Routine 05/28/2023 2:10 PM STOREKEEPER ENGINEERING 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) LIPID PANEL Routine 05/28/2023 2:10 PM STOREKEEPER ENGINEERING 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) COMPREHENSIVE METABOLIC PANEL STAT 05/28/2023 2:10 PM STOREKEEPER ENGINEERING 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) URINALYSIS AND REFLEX TO MICROSCOPIC AND CULTURE Routine 05/28/2023 2:00 PM STOREKEEPER ENGINEERING Hypothyroidism due to medication Hematuria, unspecified type EGFR STAT 05/28/2023 11:15 AM STOREKEEPER ENGINEERING Neuro-endocrine carcinoma (HCC) DIFFERENTIAL AUTO STAT 05/28/2023 11: 15 AM STOREKEEPER ENGINEERING Neuro-endocrine carcinoma (HCC) CBC WITH AUTO DIFFERENTIAL STAT 05/28/2023 11:15 AM STOREKEEPER ENGINEERING Neuro-endocrine carcinoma (HCC) PHOSPHORUS STAT 05/28/2023 11:15 AM STOREKEEPER ENGINEERING Neuro-endocrine carcinoma (HCC) MAGNESIUM STAT 05/28/2023 11:15 AM STOREKEEPER ENGINEERING Neuro-endocrine carcinoma (HCC) COMPREHENSIVE METABOLIC PANEL STAT 05/28/2023 11:15 AM STOREKEEPER ENGINEERING Neuro-endocrine carcinoma (HCC) documented in this encounter Results * (ABNORMAL) eGFR (05/28/2023 2:10 PM STOREKEEPER ENGINEERING) eGFR 48(L) >=60 mL/min/1. 73 m2 [facility] Comment: [...] interpretive data was last reviewed 2021. Blood 05/28/2023 2:10 PM STOREKEEPER ENGINEERING 05/28/2023 2:10 PM STOREKEEPER ENGINEERING us Eren Cr MD LAB BLOOD ORDERABLES Final Re sult [facility] Department [place] [address] * (ABNORMAL) Differential, auto (05/28/2023 2:10 PM STOREKEEPER ENGINEERING) Neutrophil abs 2.6 1.7 - 6.5 K/cumm [facility] Comment:Testing performed by : [facility], [address] [address] Imm gran abs 0.0 0.0 - 0.1 K/cumm [facility] Lymphocyte abs 0.5(L) 0.8 - 3.3 K/cumm [facility] Monocyte abs 0.6 0.2 - 0.8 K/cumm [facility] Eosinophil abs 0.2 0.0 - 0.5 K/cumm [facility] Basophil abs 0.0 0.0 - 0.1 K/cumm [facility] Neutrophil pct 67.6 % [facility] Comment: Interpretive Data Percent cell count reference ranges are not reported, since discordance with absolute values may lead to misinterpretation of CBC data. Current Interpretive Data was last revised on 2017. Imm gran pct 0.3 % [facility] Comment: Interpretive Data Percent cell count reference ranges are not reported, since discordance with absolute values may lead to misinterpretation of CBC data. Current Interpretive Data was last revised on 2017. Lymphocyte pct 12.4 % [facility] Comment: Interpretive Data Percent cell count reference ranges are not reported, since discordance with absolute values may lead to misinterpretation of CBC data. Current Interpretive Data was last revised on 2017. Monocyte pct 14.5 % [facility] Comment: Interpretive Data Percent cell count reference ranges are not reported, since discordance with absolute values may lead to misinterpretation of CBC data. Current Interpretive Data was last revised on 2017. Eosinophil pct 4.7 % [facility] Comment: Interpretive Data Percent cell count reference ranges are not reported, since discordance with absolute values may lead to misinterpretation of CBC data. Current Interpretive Data was last revised on 2017. Basophil pct 0.5 % [facility] Comment: Interpretive Data Percent cell count reference ranges are not reported, since discordance with absolute values may lead to misinterpretation of CBC data. Current Interpretive Data was last revised on 2017. Blood 05/28/2023 2:10 PM STOREKEEPER ENGINEERING 05/28/2023 2:10 PM STOREKEEPER ENGINEERING us Eren Cr MD LAB BLOOD ORDERABLES Final Re sult [facility] Department [place] [address] * (ABNORMAL) Lipid panel (05/28/2023 2:10 PM STOREKEEPER ENGINEERING) Cholesterol 156 30 - 199 mg/dL [facility] Comment: Interpretive Data Ages < [...] on 2018. Triglycerides 161(H) <=149 mg/dL [facility] Comment: Interpretive Data Ages < [...] on 2018. HDL 54 >=40 mg/dL [facility] Comment: Interpretive Data Ages < [...] on 2018. LDL, calculated 70 <=129 mg/dL [facility] Comment: Interpretive Data Ages < [...] revised on 2018. Non-HDL Cholesterol 102 mg/dL [facility] Comment: Interpretive Data Ages < [...] revised on 2018. Chol/HDL ratio 3 [facility] Blood 05/28/2023 2:10 PM STOREKEEPER ENGINEERING 05/28/2023 7:03 PM STOREKEEPER ENGINEERING Eren Cr MD LAB BLOOD ORDERABLES Final Re sult Performing Organization Address [facility] Co de Phone Number [facility] Department [place] [address] * (ABNORMAL) Phosphorus (05/28/2023 2:10 PM STOREKEEPER ENGINEERING) Pathologist [facility] Phosphorus, pl 1.9(L) 2.3 - 4.5 mg/dL [facility] Comment:Testing performed by : [address] [address] Blood 05/28/2023 2:10 PM STOREKEEPER ENGINEERING 05/28/2023 2:10 PM STOREKEEPER ENGINEERING Eren Cr MD LAB BLOOD ORDERABLES Final Re sult Performing Organization Address City/State/[facility] Co de Phone Number [facility] [place] [address] * (ABNORMAL) Vitamin D 25 hydroxy (05/28/2023 2:10 PM STOREKEEPER ENGINEERING) Vitamin D 25-OH 19(L) 30 - 80 ng/mL [facility] Blood 05/28/2023 2:10 PM STOREKEEPER ENGINEERING 05/28/2023 7:03 PM STOREKEEPER ENGINEERING us Eren Cr MD LAB BLOOD ORDERABLES Final Re sult [facility] Department [place] [address] * (ABNORMAL) CBC with auto differential (05/28/2023 2:10 PM STOREKEEPER ENGINEERING) [facility] WBC 3.8 3.8 - 9.9 K/cumm [facility] Comment:Testing performed by : [address] [address] Hgb 11.6(L) 11.9 - 15.5 g/dL [facility] Comment: Testing performed by: [address] [address] Interpretive Data A reference range for this assay has not been established for patients with an unknown legal sex. Please refer to the laboratory test catalog for established sex-specific reference intervals. Current interpretive data was last revised on 2023. Hct 35.3(L) 35.6 - 45.5 % [facility] Comment: Testing performed by: [address] [address] Interpretive Data A reference range for this assay has not been established for patients with an unknown legal sex. Please refer to the laboratory test catalog for established sex-specific reference intervals. Current interpretive data was last revised on 2023. Plt 94(L) 150 - 400 K/cumm [facility] Comment:Testing performed by : [address] [address] MPV 10.7 9.1 - 12.3 fL [facility] RBC 3.59(L) 3.90 - 5.20 M/cumm [facility] Comment: Interpretive Data A reference range for this assay has not been established for patients with an unknown legal sex. Please refer to the laboratory test catalog for established sex-specific reference intervals. Current interpretive data was last revised on 2023. MCV 98.3(H) 81.3 - 96.4 fL [facility] MCH 32.3 27.1 - 33.3 pg [facility] MCHC 32.9 32.3 - 35.7 g/dL [facility] RDW CV 14.3 11.1 - 14.9 % [facility] RDW SD 52.0(H) 35.7 - 48.1 fL [facility] NRBC abs 0.00 0.00 - 0.01 K/cumm [facility] Blood 05/28/2023 2:10 PM STOREKEEPER ENGINEERING 05/28/2023 2:10 PM STOREKEEPER ENGINEERING us Eren Cr MD LAB BLOOD ORDERABLES Final Re sult [facility] Department [place] [address] * (ABNORMAL) Comprehensive metabolic panel (05/28/2023 2:10 PM STOREKEEPER ENGINEERING) [facility] Sodium 137 135 - 145 mmol/L [facility] Comment:Testing performed by : [facility], [address] [place] [address] Potassium, pl 4.0 3.3 - 4.9 mmol/L [facility] Chloride 105 97 - 110 mmol/L [facility] CO2 26 22 - 32 mmol/L [facility] Anion gap 6 2 - 15 mmol/L [facility] BUN 12 6 - 25 mg/dL [facility] Creatinine 1.19(H) 0.60 - 1.10 mg/dL [facility] Glucose 111 70 - 199 mg/dL [facility] Comment: Interpretive Data Fasting glucose >/= [...] 2022. Calcium 9.7 8.5 - 10.3 mg/dL [facility] Bilirubin, total 0.6 0.1 - 1.2 mg/dL [facility] Protein, pl 6.3(L) 6.5 - 8.5 g/dL [facility] Albumin 4.1 3.5 - 5.0 g/dL [facility] Alk phos 65 40 - 130 Units/L [facility] ALT 25 7 - 45 Units/L [facility] AST 34 10 - 45 Units/L [facility] Blood 05/28/2023 2:10 PM STOREKEEPER ENGINEERING 05/28/2023 2:10 PM STOREKEEPER ENGINEERING us Eren Cr MD LAB BLOOD ORDERABLES Final Re sult [facility] Department [place] [address] * (ABNORMAL) Chromogranin A (05/28/2023 2:10 PM STOREKEEPER ENGINEERING) Chromogranin A 1434(H) <93 ng/mL [facility] Comment: Impaired renal or hepatic function or treatment with proton pump inhibitors may result in artifactual elevations of Chromogranin A. ADDITIONAL INFORMATION This test was developed and its performance characteristics determined by [facility] in a manner consistent with CLIA requirements. [...] a homogeneous time-resolved immunofluorescent assay manufactured by [employer] and performed on the [employer] Plus. ? Values obtained with different assay methods or kits may be different and cannot be used interchangeably. ? Test results cannot be interpreted as absolute evidence for the presence or absence of malignant disease. Test Performed by: [facility] [address] [place] [address] Learning Center Coordinator: Immanuel Novak M.D. Ph.D.; CLIA# [id number] Blood 05/28/2023 2:10 PM STOREKEEPER ENGINEERING 05/28/2023 4:50 PM STOREKEEPER ENGINEERING us Eren Cr MD LAB BLOOD ORDERABLES Final Re sult [facility] Department [place] [address] * Urinalysis reflex to microscopic and culture Urine, clean voided (05/28/2023 2:00 PM STOREKEEPER ENGINEERING) Color, ur Yellow Yellow [facility] Clarity, ur Clear Clear [facility] Specific gravity, ur 1.021 1.003 - 1.030 [facility] pH, urine 5.5 [facility] Comment: Interpretive Data ? Urine pH is affected by diet, medications, systemic acid-base disturbances, and renal tubular function. ??pH may affect urinary stone formation. ??For example, urine pH below 6.0 may help reduce the tendency for calcium phosphate stones and pH greater than 6.0 may reduce the tendency for uric acid stone formation. Source: [facility] Current Interpretive Data was last revised on 2017 Protein, ur ql Trace Negative [facility] Glucose, ur ql Negative Negative [facility] Ketones, ur Negative Negative [facility] Bilirubin, ur Negative Negative [facility] Blood, ur Negative Negative [facility] Urobilinogen, ur <2.0 <2.0 mg/dL [facility] Nitrite, ur Negative Negative [facility] Leukocyte esterase, ur Negative Negative [facility] UA reflex comment Reflex conditions for microscopic UA and culture not met. [facility] Urine, clean voided 05/28/2023 2:00 PM STOREKEEPER ENGINEERING 05/28/2023 3:43 PM STOREKEEPER ENGINEERING us Eren Cr MD LAB MICROBIOLOGY - GENERAL OR DERABLES Final Result Performing Organization Address [facility] Co de Phone Number [facility] Department [place] [address] * (ABNORMAL) eGFR (05/28/2023 11:15 AM STOREKEEPER ENGINEERING) eGFR 48(L) >=60 mL/min/1. 73 m2 [facility] Comment: Interpretive Data Reference Interval Normal ?>/= [...] interpretive data was last reviewed 2021. Blood 05/28/2023 11:1 5 AM STOREKEEPER ENGINEERING 05/28/2023 11:19 AM STOREKEEPER ENGINEERING us Eren Cr MD LAB BLOOD ORDERABLES Final Re sult Performing Organization Address [facility]/ZIP Co de Phone Number [facility] Department [place] [address] * (ABNORMAL) Differential, auto (05/28/2023 11:15 AM STOREKEEPER ENGINEERING) Neutrophil abs 2.3 1.7 - 6.5 K/cumm [facility] Comment:Testing performed by : [facility], [address] [address] Imm gran abs 0.0 0.0 - 0.1 K/cumm [facility] Lymphocyte abs 0.5(L) 0.8 - 3.3 K/cumm [facility] Monocyte abs 0.5 0.2 - 0.8 K/cumm [facility] Eosinophil abs 0.2 0.0 - 0.5 K/cumm [facility] Basophil abs 0.0 0.0 - 0.1 K/cumm [facility] Neutrophil pct 65.1 % [facility] Comment: Interpretive Data Percent cell count reference ranges are not reported, since discordance with absolute values may lead to misinterpretation of CBC data. Current Interpretive Data was last revised on 2017. Imm gran pct 1.1 % [facility] Comment: Interpretive Data Percent cell count reference ranges are not reported, since discordance with absolute values may lead to misinterpretation of CBC data. Current Interpretive Data was last revised on 2017. Lymphocyte pct 15.1 % [facility] Comment: Interpretive Data Percent cell count reference ranges are not reported, since discordance with absolute values may lead to misinterpretation of CBC data. Current Interpretive Data was last revised on 2017. Monocyte pct 13.1 % [facility] Comment: Interpretive Data Percent cell count reference ranges are not reported, since discordance with absolute values may lead to misinterpretation of CBC data. Current Interpretive Data was last revised on 2017. Eosinophil pct 5.0 % [facility] Comment: Interpretive Data Percent cell count reference ranges are not reported, since discordance with absolute values may lead to misinterpretation of CBC data. Current Interpretive Data was last revised on 2017. Basophil pct 0.6 % [facility] Comment: Interpretive Data Percent cell count reference ranges are not reported, since discordance with absolute values may lead to misinterpretation of CBC data. Current Interpretive Data was last revised on 2017. Blood 05/28/2023 11:1 5 AM STOREKEEPER ENGINEERING 05/28/2023 11:17 AM STOREKEEPER ENGINEERING Eren Cr MD LAB BLOOD ORDERABLES Final Re sult [facility] Department [place] [address] * (ABNORMAL) CBC with auto differential (05/28/2023 11:15 AM STOREKEEPER ENGINEERING) [facility] WBC 3.6(L) 3.8 - 9.9 K/cumm [facility] Comment:Testing performed by : [address] [address] Hgb 11.3(L) 11.9 - 15.5 g/dL [facility] Comment: Testing performed by: [address] [address] Interpretive Data A reference range for this assay has not been established for patients with an unknown legal sex. Please refer to the laboratory test catalog for established sex-specific reference intervals. Current interpretive data was last revised on 2023. Hct 34.5(L) 35.6 - 45.5 % [facility] Comment: Testing performed by: [address] [address] Interpretive Data A reference range for this assay has not been established for patients with an unknown legal sex. Please refer to the laboratory test catalog for established sex-specific reference intervals. Current interpretive data was last revised on 2023. Plt 94(L) 150 - 400 K/cumm [facility] Comment:Testing performed by : [address] [address] MPV 11.0 9.1 - 12.3 fL [facility] RBC 3.51(L) 3.90 - 5.20 M/cumm [facility] Comment: Interpretive Data A reference range for this assay has not been established for patients with an unknown legal sex. Please refer to the laboratory test catalog for established sex-specific reference intervals. Current interpretive data was last revised on 2023. MCV 98.3(H) 81.3 - 96.4 fL [facility] MCH 32.2 27.1 - 33.3 pg [facility] MCHC 32.8 32.3 - 35.7 g/dL [facility] RDW CV 14.4 11.1 - 14.9 % [facility] RDW SD 52.1(H) 35.7 - 48.1 fL [facility] NRBC abs 0.00 0.00 - 0.01 K/cumm [facility] Blood 05/28/2023 11:1 5 AM STOREKEEPER ENGINEERING 05/28/2023 11:17 AM STOREKEEPER ENGINEERING Eren Cr MD LAB BLOOD ORDERABLES Final Re sult [facility] Department [place] [address] * (ABNORMAL) Comprehensive metabolic panel (05/28/2023 11:15 AM STOREKEEPER ENGINEERING) Sodium 138 135 - 145 mmol/L [facility] Comment:Testing performed by : [facility], [address] [place] [address] Potassium, pl 4.0 3.3 - 4.9 mmol/L [facility] Chloride 108 97 - 110 mmol/L [facility] CO2 24 22 - 32 mmol/L [facility] Anion gap 6 2 - 15 mmol/L [facility] BUN 12 6 - 25 mg/dL [facility] Creatinine 1.19(H) 0.60 - 1.10 mg/dL [facility] Glucose 66(L) 70 - 199 mg/dL [facility] Comment: Interpretive Data Fasting glucose >/= [...] Calcium 9.5 8.5 - 10.3 mg/dL [facility] Bilirubin, total 0.6 0.1 - 1.2 mg/dL [facility] Protein, pl 6.2(L) 6.5 - 8.5 g/dL [facility] Albumin 4.0 3.5 - 5.0 g/dL [facility] Alk phos 63 40 - 130 Units/L [facility] ALT 23 7 - 45 Units/L [facility] AST 36 10 - 45 Units/L [facility] Blood 05/28/2023 11:1 5 AM STOREKEEPER ENGINEERING 05/28/2023 11:17 AM STOREKEEPER ENGINEERING Eren Cr MD LAB BLOOD ORDERABLES Final Re sult Performing Organization Address [facility] Co de Phone Number [facility] Department [place] [address] * Magnesium (05/28/2023 11:15 AM STOREKEEPER ENGINEERING) Magnesium 1.6 1.4 - 2.5 mg/dL [facility] Comment:Testing performed by : [address] [address] Blood 05/28/2023 11:1 5 AM STOREKEEPER ENGINEERING 05/28/2023 11:17 AM STOREKEEPER ENGINEERING Eren Cr MD LAB BLOOD ORDERABLES Final Re sult Performing Organization Address [facility]/[place] [address] * (ABNORMAL) Phosphorus (05/28/2023 11:15 AM STOREKEEPER ENGINEERING) Phosphorus, pl 2.1(L) 2.3 - 4.5 mg/dL [facility] Comment:Testing performed by : [address] [place] [address] Blood 05/28/2023 11:1 5 AM STOREKEEPER ENGINEERING 05/28/2023 11:17 AM STOREKEEPER ENGINEERING Eren Cr MD LAB BLOOD ORDERABLES Final Re sult [facility] Department [place] [address] documented in this encounter Visit Diagnoses Diagnosis Neuro-endocrine carcinoma (HCC) Other malignant neoplasm of unspecified site Neuroendocrine carcinoma (HCC) Other malignant neoplasm of unspecified site Malignant neoplasm metastatic to liver (HCC) Hypothyroidism due to medication Hematuria, unspecified type documented in this encounter Care Teams Thread Puller Relationship Specialty Start Date End Date Julio César Briseno MD PCP - General 10/01/16 Eren Cr MD Referring Physician Medical Oncology 11/25/18 Yohana Bowen MD Radiation Oncologist Radiation Oncology 11/25/18 Alejo Mi MD [address] [address] Referring Physician Nephrology 03/07/23 documented as of this encounter
--- OUTSIDE RECORDS SUMMARY | 2024-06-25 22:10 | XMS_ITS | Encounter Summary ---
Author Organization [facility] Address [address] [place] [address] Phone Care Team Providers Care Saw Offbearer Name Role Phone Julio César Briseno MD Primary Care Provider Eren Cr MD Unavailable [phone] Yohana Bowen MD Unavailable Alejo Mi MD Unavailable [phone] Reason for Visit * Reason Comments OP Infusion Encounter Details Date Type Department Care Team (Late st Contact Info) Description 05/28/2023 1:45 PM DEMOLITION ENGINEER Infusion [facility] Oncology [address] [place] [address] Neuroendocrine carcinoma (HCC) Social History Tobacco Use [...] on file Legal Sex Female 2:41 PM DEMOLITION ENGINEER Gender Identity Not on file Sexual [...] 05/28/2023 documented in this encounter Care Teams Saw Offbearer Relationship Specialty Start Date End Date Julio César Briseno MD PCP - General 10/01/16 Eren Cr MD Referring Physician Medical Oncology 11/25/18 Yohana Bowen MD Radiation Oncologist Radiation Oncology 11/25/18 Alejo Mi MD [address] [place] [address] Referring Physician Nephrology 03/07/23 documented as of this encounter
--- OUTSIDE RECORDS SUMMARY | 2024-06-25 22:10 | XMS_ITS | Encounter Summary ---
Author Organization [facility] Healthcare Address [address] [place] [address] Care Team Providers Care Rubber Mill Tender Name Role Phone Julio César Briseno MD Primary Care Provider [phone] Eren Cr MD Unavailable [phone] Yohana Bowen MD Unavailable Alejo Mi MD Unavailable [phone] Encounter Details Date Type Department Care Team (Latest Contact Info) Description 05/08/2023 8:45 AM CDT Home Care Visit [facility] [place] [address] [address] [place] [id number] Sherlyn Orozco RN CUTOV SBO SN NON OASIS RECERT Social History Tobacco Use Types Packs/Day Years [...] on file Legal Sex Female 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 Gender Identity Not on file Sexual Orientation [...] MAR Action Action Date Dose Rate Site 0.9 % sodium chloride ([facility] sodium chloride 0.9%) injection 10 mL, intravenous, Weekly, First dose on 05/11/23 at 0900, On saturday, Indications: line careIndications:line care Given 05/08/2023 11:30 AM CDT 10 mL sodium chloride 0.9 % solution 1,000 mL, intravenous, Weekly, First dose on 05/11/23 at 0900, Patient to infuse 1000mL of Normal Saline via CADD Coreas pump set at 300mL/Hr once weekly.- Saturday, Indications: hydrationIndications:hydration Given 05/08/2023 11:30 AM CDT 1,000 mL documented in this encounter Home Health Visit - Care Plan Visit Details Visit Type -SN Non-OASIS Rec ert Discipline -Mcc Problems Problem Description Start Date Status Goals Interventions Medications Disciplines: Mcc Management of IV Medications 05/08/2023 Active - 1 problem intervention scheduled/documen omar in this visit Safety concerns Disciplines: Mcc Safety needs related to infusion administration 05/08/2023 Active - 1 problem intervention scheduled/documen omar in this visit Learning/Teachin g Needs - IV Therapy Disciplines: Mcc Teaching and learning needs for performing home IV therapy 05/08/2023 Active - 6 problem interventions scheduled/documen omar in this visit Monitor patient's vital signs every home health visit Disciplines: SN, PT, OT, SERICULTURIST, RADIOLOGY TRANSPORTER, Skilled Disciplines Monitor patient's vital signs every [...] visit during episode of care Description: Home vegetable farm manager to measure vital signs during every home [...] and infusion service Problem:Safety concerns Scheduled Instruct Infection Prevention Description: Instruct patient/caregiver in strategies to prevent infection: Instruct patient/caregiver on how to recognize signs and symptoms of infection and when to notify HH nurse and/or physician. Problem:Learning/Teac soco Needs - IV Therapy Completed Pt verb good understanding of infection prevention including proper handwashing and use of universal precautions Instruct on IV supplies Description: Instruct patient/caregiver in how to gather supplies, how to restock IV supplies in the home, prepare supplies, administer IV medication and disconnect IV medication, inspecting solution and supplies before infusing, and waste disposal. Problem:Learning/Teac soco Needs - IV Therapy Scheduled IV Administration Description: Skilled Nurse to instruct patient/caregiver on how to properly administer medication saline and heparin. Skilled Nurse to instruct patient/caregiver to administer IV medication as ordered including saline and heparin flushes. Reason for Therapy: Infuse 1000ml of Normal Saline solution once weekly via CADD Coreas pump over 3 hours at 300ml/hour Problem:Learning/Teac soco Needs - IV Therapy Scheduled Dressing change [...] heparin 500units/5ml for patency per established protocol. Problem:Learning/Teac soco Needs - IV Therapy Scheduled IV Access [...] of each line upon completion of infusion/flushes. Problem:Learning/Teac soco Needs - IV Therapy Scheduled Instruct on IV flush Description: Instruct patient/caregiver in how to perform flushing of IV line according to MD orders or protocol. Problem:Learning/Teac soco Needs - IV Therapy Scheduled Monitor Vital Signs Description: Monitor blood pressure, pulse, oxygen saturation, respirations Problem:Monitor patient's vital signs every home health visit Goal:Measure vital signs during every home health visit during episode of care Completed VSS Educate Patient on Infection Prevention Description: Instruct [...] Scheduled documented in this encounter Care Teams Rubber Mill Tender Relationship Specialty Start Date End Date Julio César Briseno MD PCP - General 10/01/16 Eren Cr MD Referring Physician Medical Oncology 11/25/18 Yohana Bowen MD Radiation Oncologist Radiation Oncology 11/25/18 Alejo Mi MD [address] [address] Referring Physician Nephrology 03/07/23 documented as of this encounter
--- OUTSIDE RECORDS SUMMARY | 2024-06-25 22:10 | XMS_ITS | Encounter Summary ---
Author Organization [facility] Healthcare Address [address] [place] [address] Care Team Providers Care Signal Person Name Role Phone Julio César Briseno MD Primary Care Provider [phone] Eren Cr MD Unavailable [phone] Yohana Bowen MD Unavailable Alejo Mi MD Unavailable [phone] Encounter Details Date Type Department Care Team (Late st Contact Info) Description 06/05/2023 8:30 AM TRAIN DRIVER Home Care Visit [facility] [place] [address] [address] [place] [id number] Yo Santiago, [place] [facility] HOME VISIT Social History Tobacco Use Types Packs/Day Years [...] file Legal Sex Female 2:41 PM TRAIN DRIVER Gender Identity Not on file Sexual Orientation Straight 02/19/2021 9: 29 AM CDT Occupation Industry Job Start Date Job End Date retired Not on file Not on file Not on file documented as of this encounter Last Filed Vital Signs Vital Sign Reading Time Taken Comments Blood Pressure 132/62 06/05/2023 1:55 PM TRAIN DRIVER Pulse 80 06/05/2023 1:55 PM TRAIN DRIVER Temperature 36.3 ??C (97.4 ??F) 06/05/2023 1:55 PM CS T Respiratory Rate 20 06/05/2023 1:55 PM TRAIN DRIVER Oxygen Saturation 97% 06/05/2023 1:55 PM TRAIN DRIVER Inhaled Oxygen Concentration - - Weight - - Height 160 cm (5' 3 ) 06/05/2023 1:55 PM TRAIN DRIVER Body Mass Index - - documented in this encounter Miscellaneous Notes * Home Health Visit Narrative - Yo Santiago RN - 06/05/2023 12:00 AM TRAIN DRIVER Patient Covid screen performed prior to arrival. Assessed patient upon arrival. All findings and vital signs WNL. Implanted port accessed without difficulty using aseptic technique and sterile TSM dressing applied. Skilled Nurse verified patency. Unable to aspirate blood. Patient has had port evaluated in IR. Port flushed without resistance. No signs/ symptoms of bleeding, hematoma, or infiltration. IV fluid infusion initiated via CADD pump. Patient discharged to home with port accessed and fluids running. Patient's spouse to heparinized and deaccess port when infusion is completed. Patient'squestions answered. Patient discharged with instruction to contact MD if complications occur. Patient verbalizes understanding. N DRIVER documented in this encounter Plan of Treatment Not on file documented as of this encounter Visit Diagnoses Not on filedocumented in this encounter Administered Medications Inactive Administered Medications - up to 3 most recent administrations Medication Order MAR Action Action Date Dose Rate Site 0.9 % sodium chloride ([facility] sodium chloride 0.9%) injection 10 mL, intravenous, Weekly, First dose on Lydia 06/06/23 at 1445, On saturday, Indications: line careIndications:line care Given 06/05/2023 1:18 PM TRAIN DRIVER 10 mL Port sodium chloride 0.9 % solution 1,000 mL, intravenous, Weekly, First dose on Lydia 06/06/23 at 1445, Patient to infuse 1000mL of Normal Saline via CADD Coreas pump set at 300mL/Hr once weekly.- Saturday, Indications: hydrationIndications:hydration Given 06/05/2023 1:18 PM TRAIN DRIVER 1,000 mL Port documented in this encounter Home Health Visit - Care Plan Visit Details Visit Type -SN Home Visit Discipline -Group Home Problems Problem Description Start Date Status Goals Interventions Medications Disciplines: Group Home Management of IV Medications 05/08/2023 Active - 1 problem intervention scheduled/documen omar in this visit Safety concerns Disciplines: Group Home Safety needs related to infusion administration 05/08/2023 Active - 1 problem intervention scheduled/documen omar in this visit Learning/Teachin g Needs - IV Therapy Disciplines: Group Home Teaching and learning needs for performing home IV therapy 05/08/2023 Active - 7 problem interventions scheduled/documen omar in this visit Monitor patient's vital signs every home health visit Disciplines: SN, PT, OT, GUARD IMMIGRATION, ADAPTED PHYSICAL EDUCATION SPECIALIST, Skilled Disciplines Monitor patient's vital signs every home health visit. 05/08/2023 Active 1 goal linked to scheduled/docume nted intervention 2 goal interventions scheduled/documen omar in this visit Infection Prevention Disciplines: Skilled Disciplines Infection Prevention 05/08/2023 Active 1 goal linked to scheduled/docume nted intervention 3 goal interventions scheduled/documen omar in this visit Safety concerns Disciplines: Skilled Disciplines Alteration in safety 05/08/2023 Active 1 goal linked to scheduled/docume nted intervention 2 goal interventions scheduled/documen omar in this visit Goals Goal Associated Problem Outcome Goal Met? Visit Notes Measure vital signs during every home health visit during episode of care Description: Home harbour master to measure vital signs during every home [...] pump over 3 hours at 300ml/hour Problem:Medications Completed Patient instructed on medication administration, purpose, dosages, preparation, scheduling, side effects, food/drug interactions, and potential complications. Current regimen and compliance reviewed with Patient. Patient verbalizes understanding of treatment regimen and the importance of adherence. Medications taught IV Fluids. Instruct on IV complications Description: Instruct patient/caregiver on how to manage breaks in line, signs/symptoms of complications, who to contact for complications and how to contact the nurse, MD and infusion service Problem:Safety concerns Completed Instructed patient/caregiver on signs/symptoms of complications, who to contact for complications and how to contact the nurse, MD and infusion service Patient and caregiver verbalize understanding Instruct on IV supplies Description: Instruct patient/caregiver in how to gather supplies, how to restock IV supplies in the home, prepare supplies, administer IV medication and disconnect IV medication, inspecting solution and supplies before infusing, and waste disposal. Problem:Learning/Teac soco Needs - IV Therapy Completed Instructed patient/caregiver in how to gather supplies, how to restock IV supplies in the home, prepare supplies, administer IV medication and disconnect IV medication, inspecting solution and supplies before infusing, and waste disposal. Patient and caregiver verbalize understanding Instruct Infection Prevention Description: Instruct patient/caregiver in strategies to prevent infection: Instruct patient/caregiver on how to recognize signs and symptoms of infection and when to notify HH nurse and/or physician. Problem:Learning/Teac soco Needs - IV Therapy Completed Patient instructed on frequent/proper hand-washing techniques, [place] precautions, avoid crowds and persons with known infections, staying current with immunizations, s/s of infection, use of antibiotics and encourage adequate diet and fluid intake. Patient verbalizes understanding of strategies to prevent infection. IV Administration Description: Skilled Nurse to instruct patient/caregiver on how to properly administer medication saline and heparin. Skilled Nurse to instruct patient/caregiver to administer IV medication as ordered including saline and heparin flushes. Reason for Therapy: Infuse 1000ml of Normal Saline solution once weekly via CADD Coreas pump over 3 hours at 300ml/hour Problem:Learning/Teac soco Needs - IV Therapy Completed Skilled Nurse instructed patient/caregiver on how to properly administer saline and heparin. Patient and caregiver verbalize understanding IV Access Care/Maintenance Description: Skilled Nurse to [...] infusion/flushes. Problem:Learning/Teac soco Needs - IV Therapy Completed Skilled Nurse to access port using aseptic technique, verify patency, and apply TSM dressing. Patient's husbaband will heparinize port upon completion of infusion and deaccess port. Instruct on IV flush Description: Instruct patient/caregiver in how to perform flushing of IV line according to MD orders or protocol. Problem:Learning/Teac soco Needs - IV Therapy Completed Instructed patient/caregiver in how to perform flushing of IV line according to MD orders or protocol. Patient and caregiver verbalize understanding IV Discontinuation Description: Instruct patient/caregiver on how to remove peripheral IV after last infusion per MD order or instruct on process of removal of Central Venous Catheter if it is to be removed in the home after infusion therapy is completed by Skilled Nurse. Problem:Learning/Teac soco Needs - IV Therapy Completed Instructed patient/caregiver on how to flush and heparinize port after completing infusion. Patient's instructed on deaccessing port after infusion therapy is completed. Patient and caregiver verbalize understanding Dressing change Description: Skilled Nurse to instruct [...] health visit during episode of care Completed Monitored blood pressure, pulse, oxygen saturation, respirations, and temperature. Supervising Discipline notification of abnormal vital signs Description: Use standardized clinical guidelines of abnormal vitals signs to report to supervising discipline. (HR 50-110, SBP 90-160, DBP 40-90, O2Sat 88-100%, temporal temp less than 101.5) Problem:Monitor patient's vital signs every home health visit Goal:Measure vital signs during every home health visit during episode of care Completed Used standardized clinical guidelines of abnormal vitals signs to report to supervising discipline. (HR 50-110, SBP 90-160, DBP 40-90, O2Sat 88-100%, temporal temp less than 101.5) Educate Patient on Infection Prevention Description: Instruct patient on signs and symptoms of infection IE: fever, odor, change in color, increased amount of drainage, purulent drainage, warmth. Problem:Infection Prevention Goal:Verbalize signs of infection Completed Instructed patient on signs and symptoms of infection. Patient verbalized understanding. Educate Family on Infection Prevention Description: Instructed family on signs and symptoms of infection IE: fever, odor, change in color, increased amount of drainage, purulent drainage, warmth. Problem:Infection Prevention Goal:Verbalize signs of infection Completed Instructed family on signs and symptoms of infection. Patient's verbalized understanding. Aspects of Care Description: Instruct patient/caregiver on universal precautions and home infection control measures Problem:Infection Prevention Goal:Verbalize signs of infection Completed Instructed patient/caregiver on universal precautions and home infection control measures Patient and caregiver verbalize understanding Assess safety Description: Assess patient safety Problem:Safety concerns Goal:Demonstrate use of safety precautions Completed Patient verbalized no safety concerns. Instruct Fall Prevention Description: Instruct patient/caregiver in methods to prevent falls Problem:Safety concerns Goal:Demonstrate use of safety precautions Scheduled documented in this encounter Care Teams Signal Person Relationship Specialty Start Date End Date Julio César Briseno MD PCP - General 10/01/16 Eren Cr MD Referring Physician Medical Oncology 11/25/18 Yohana Bowen MD Radiation Oncologist Radiation Oncology 11/25/18 Alejo Mi MD [address] [place] [address] Referring Physician Nephrology 03/07/23 documented as of this encounter
--- OUTSIDE RECORDS SUMMARY | 2024-06-25 22:10 | XMS_ITS | Encounter Summary ---
Author Organization [facility] Healthcare Address [address] [place] [address] Care Team Providers Care Drivability Technician Name Role Phone Julio César Briseno MD Primary Care Provider [phone] Eren Cr MD Unavailable [phone] Yohana Bowen MD Unavailable Alejo Mi MD Unavailable [phone] Encounter Details Date Type Department Care Team (Late st Contact Info) Description 05/15/2023 7:00 AM EDUCATIONAL DIAGNOSTICIAN Home Care Visit [facility] [place] [address] [address] [place] [id number] Mj Lima, [place] [facility] HOME VISIT Social History Tobacco [...] on file Legal Sex Female 2:41 PM EDUCATIONAL DIAGNOSTICIAN Gender Identity Not on file Sexual Orientation Straight 02/19/2021 9: 29 AM CDT Occupation Industry Job Start Date Job End Date retired Not on file Not on file Not on file documented as of this encounter Last Filed Vital Signs Vital Sign Reading Time Taken Comments Blood Pressure 134/68 05/15/2023 10:00 AM EDUCATIONAL DIAGNOSTICIAN Pulse 72 05/15/2023 10:00 AM EDUCATIONAL DIAGNOSTICIAN Temperature 37.1 ??C (98.8 ??F) 05/15/2023 10:[address] Respiratory Rate 16 05/15/2023 10:00 AM EDUCATIONAL DIAGNOSTICIAN Oxygen Saturation 98% 05/15/2023 10:00 AM EDUCATIONAL DIAGNOSTICIAN Inhaled Oxygen Concentration - - Weight - - Height - - Body Mass Index - - documented in this encounter Miscellaneous Notes * Home Health Visit Narrative - Mj Lima RN - 05/15/2023 9:58 AM EDUCATIONAL DIAGNOSTICIAN Port-a-cath access today. Pt tolerates well. All vital signs fall within acceptable parameters. Mr.and Mrs. Robertod verbalize good understanding of at-home management of their port-a-cath and good understanding of the plan of care moving forward. IVF via CADD initiated. ATIONAL DIAGNOSTICIAN * Home Health Plan for Next Visit - Mj Lima RN - 05/15/2023 9:58 AM CST Reason for today's visit - port-a-cath access and IVF initiation Discuss plan of care with the patient Discharge planning - ongoing Plan for next visit in one week for same ATIONAL DIAGNOSTICIAN documented in this encounter Plan of Treatment Not on file documented as of this encounter Visit Diagnoses Not on filedocumented in this encounter Administered Medications Inactive Administered Medications - up to 3 most recent administrations Medication Order MAR Action Action Date Dose Rate Site 0.9 % sodium chloride ([facility] sodium chloride 0.9%) injection 10 mL, intravenous, Weekly, First dose on Sat05/15/23 at 1345, On saturday, Indications: line careIndications:line care Given 05/15/2023 12:55 PM EDUCATIONAL DIAGNOSTICIAN 10 mL documented in this encounter Home Health Visit - Care Plan Visit Details Visit Type -SN Home Visit Discipline -Residential Problems Problem Description Start Date Status Goals Interventions Medications Disciplines: Residential Management of IV Medications 05/08/2023 Active - 1 problem intervention scheduled/documen omar in this visit Safety concerns Disciplines: Residential Safety needs related to infusion administration 05/08/2023 Active - 1 problem intervention scheduled/documen omar in this visit Learning/Teachin g Needs - IV Therapy Disciplines: Residential Teaching and learning needs for performing home IV therapy 05/08/2023 Active - 6 problem interventions scheduled/documen omar in this visit Monitor patient's vital signs every home health visit Disciplines: SN, PT, OT, PLUG MAKER, HEAD UP OPERATOR HELPER, Skilled Disciplines Monitor patient's vital signs every [...] visit during episode of care Description: Home claim clinician to measure vital signs during every home [...] MD and infusion service Problem:Safety concerns Completed Pt verbalizes good understanding of potential IV complications and prevention/management of same. Instruct on IV supplies Description: Instruct patient/caregiver in how to gather supplies, how to restock IV supplies in the home, prepare supplies, administer IV medication and disconnect IV medication, inspecting solution and supplies before infusing, and waste disposal. Problem:Learning/Teac soco Needs - IV Therapy Completed Pt and family verbalize good understanding of how to order supplies, what supplies are needed, and timeframe in which to call. IV Access Care/Maintenance Description: Skilled Nurse to [...] soco Needs - IV Therapy Completed Patient and family verbalize and demonstrate good understanding of IV access care and maintenance to include good handwashing, aseptic technique as per [facility] Home Infusion Policies and Procedures, and troubleshooting/manag ement. Instruct on IV flush Description: Instruct patient/caregiver in how to perform flushing of IV line according to MD orders or protocol. Problem:Learning/Teac soco Needs - IV Therapy Completed Pt verbalizes good understanding of IV flush procedure using aseptic technique as per [facility] HH Infusion policy. Instruct Infection Prevention Description: Instruct patient/caregiver in strategies to prevent infection: Instruct patient/caregiver on how to recognize signs and symptoms of infection and when to notify nurse and/or physician. Problem:Learning/Teac soco Needs - IV Therapy Scheduled [...] health visit during episode of care Completed All vital signs fall within acceptable parameters. Educate Patient on Infection Prevention Description: Instruct patient on signs and symptoms of infection IE: fever, odor, change in color, increased amount of drainage, purulent drainage, warmth. Problem:Infection Prevention Goal:Verbalize signs of infection Completed Patient verbalizes good understanding of infection prevention including handwashing and aseptic technique. Educate Family on Infection Prevention Description: Instructed family on signs and symptoms of infection IE: fever, odor, change in color, increased amount of drainage, purulent drainage, warmth. Problem:Infection Prevention Goal:Verbalize signs of infection Completed Family verbalizes good understanding of infection prevention including handwashing and aseptic technique. Assess safety Description: Assess patient safety Problem:Safety concerns Goal:Demonstrate use of safety precautions Completed Pt and family report that they are safe in the home. Instruct Fall Prevention Description: Instruct patient/caregiver in methods to prevent falls Problem:Safety concerns Goal:Demonstrate use of safety precautions Scheduled documented in this encounter Care Teams Drivability Technician Relationship Specialty Start Date End Date Julio César Briseno MD PCP - General 10/01/16 Eren Cr MD Referring Physician Medical Oncology 11/25/18 Yohana Bowen MD Radiation Oncologist Radiation Oncology 11/25/18 Alejo Mi MD [address] [address] Referring Physician Nephrology 03/07/23 documented as of this encounter
--- OUTSIDE RECORDS SUMMARY | 2024-06-25 22:10 | XMS_ITS | Encounter Summary ---
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 female returning pt, no PMH of skin cancer, has family hx of melanoma, here today for full body skin exam. Accompanied by daughter. Pt states today, Concerns over red spots on her arms Concerns about being on blood thinners and having low platelet count relating to onset of red spotson arms Concerns with lid lag being acute No other associated symptoms, exacerbating or alleviating [...] who had melanoma is reportedly doing well. Past Medical History: Diagnosis Date Arthritis Family [...] with exception of these notable exam findings: - Red macules and papules on bilateral arms - Bagley angiomas on trunk - Lichenoid Keratosis on trunk - Many aneudy colored papules on trunk and upper extremities ASSESSMENT AND PLAN Actinic Purpura: bilateral arms Discussed nature of condition. Benign. Recommend OTC Arnica (with Pineapple extract) to AA bilateral arms. - Discussed use of Arnica to help red spots fade - Discussed focus on preventative and protective methods againt injury to sensitive areas Lichenoid Keratosis: trunk Discussed nature of condition. Benign Actinic keratosis: 2, face Nature of condition reviewed including small risk of transformation into skin cancer Options of treatment reviewed prior to treatment including monitoring, cryotherapy/LN2, field therapy Blister care reviewed Recommended frequent use of Vaseline to treated sites - Discussed use of Efudex on face Family History of Melanoma - No concerning [...] SCRIBE ATTESTATION By signing my name, I, Douglas Parsonscynthia, attest that this documentation has been prepared under the direction and in the presence of Dr. Newberry 05/24/2023 12:34 PM ATTENDING ATTESTATION I personally performed the services described in this documentation, reviewed and edited the documentation which was dictated to the scribe in my presence, and it accurately records my words and actions. Electronically Signed: Po Newberry MD, PhD ING MACHINE SETTER documented in this encounter Plan of Treatment Not on file documented as of this encounter Visit Diagnoses Diagnosis Solar purpura (CMS/HCC) (HCC)- Primary Family history of melanoma Family history of other specified malignant neoplasm Actinic keratosis Lichenoid keratosis documented in this encounter Discontinued Medications Medication Sig Discontinue Reason Start Date End Da te ondansetron ODT (ZOFRAN-ODT) 8 mg disintegrating tabletIndications:Cancer Chemotherapy-Induced Nausea and Vomiting Take 1 tablet (8 mg total) by mouth every 8 (eight) hours as needed for nausea or vomiting Other 10/18/2022 05/24/2023 HYDROcodone-acetaminophen ([place]) 5-325 mg per tabletIndications:Pain Take 1 tablet by mouth every 6 (six) hours as needed for pain Other 02/05/2023 05/24/2023 documented as of this encounter Care Teams Captain Fire Prevention Bureau Relationship Specialty Start Date End Date Julio César Briseno MD PCP - General 10/01/16 Eren Cr MD Referring Physician Medical Oncology 11/25/18 Yohana Bowen MD Radiation Oncologist Radiation Oncology 11/25/18 Alejo Mi MD [address] [place] [address] Referring Physician Nephrology 03/07/23 documented as of this encounter
--- OUTSIDE RECORDS SUMMARY | 2024-06-25 22:10 | XMS_ITS | Encounter Summary ---
Author Organization [facility] Address [address] [place] [address] Phone Care Team Providers Care Communication Arts Lecturer Name Role Phone Julio César Briseno MD Primary Care Provider [phone] Eren Cr MD Unavailable [phone] Yohana Bowen MD Unavailable Alejo Mi MD Unavailable [phone] Encounter Details Date Type Department Care Team (Late st Contact Info) Description 05/02/2023 Orders Only [facility] Oncology [address] [place] [address] Eren Cr MD [address] [place] [address] 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 Dx); Hypothyroidism due to drugs Social History Tobacco Use Types Packs/Day Years [...] on file 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 Gender Identity Not on file Sexual Orientation Straight 02/19/2021 9: 29 AM CDT Occupation Industry Job Start Date Job End Date retired Not on file Not on file Not on file documented as of this encounter Plan of Treatment Not on file documented as of this encounter Results * T4, free (05/02/2023 12:12 PM CDT) Free T4 1.41 0.90 - 1.70 ng/dL [facility] Blood 05/02/2023 12:1 2 PM CDT 05/02/2023 2:06 PM CDT us Eren Cr MD LAB BLOOD ORDERABLES Final Re sult Performing Organization Address [facility] Co de Phone Number [facility] Department [place] [address] * TSH (05/02/2023 12:12 PM CDT) Thyroid Stimulating Hormone 1.28 0.30 - 4.20 mcIUnit/mL [facility] Blood 05/02/2023 12:1 2 PM CDT 05/02/2023 2:06 PM CDT Eren Cr MD LAB BLOOD ORDERABLES Final Re sult [facility] Department [place] [address] documented in this encounter Visit Diagnoses Diagnosis Malignant neoplasm metastatic to liver (HCC)- Primary 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
--- OUTSIDE RECORDS SUMMARY | 2024-06-25 22:10 | XMS_ITS | Encounter Summary ---
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) Procedures CT chest abdomen pelvis with contrast Eren Cr MD [facility] [place] [address] Phone: tel: fax: [address] [phone] Referral ID Status Reason Start Date Expiration Date Visits Re quested Visits Authorized [id number] Closed 05/02/2023 05/31/2024 1 1 R AND WASHER MECHANIC Reason for Visit * MRI/CAT/PET Scan (Routine) - Closed Specialty Diagnoses / Procedures Referred By Contac Referred To Contact Radiology Diagnoses Malignant neoplasm metastatic to 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) Procedures CT chest abdomen pelvis with contrast Eren Cr MD [address] [facility] [address] [place] [address] Phone: tel: fax: [address] [place] [address] Referral ID Status Reason Start Date Expiration Date Visits Re quested Visits Authorized [id number] Closed 05/02/2023 05/31/2024 1 1 Encounter Details Date Type Department Care Team (Latest Contact Info) Description 05/24/2023 2:17 PM DRYER AND WASHER MECHANIC - 05/24/2023 11:59 PM DRYER AND WASHER MECHANIC Hospital Encounter [facility] Rad[facility] [address] [place] [id number] Eren Cr MD [address] [facility] [address] [facility] [place] [address] Malignant neoplasm metastatic to liver (HCC); Malignant [...] on file Legal Sex Female 2:41 PM DRYER AND WASHER 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 Gender Identity Not on file Sexual Orientation [...] capsuleIndicatio ns:supplement Take 1 tablet by mouth bingo checker before breakfast 07/04/2016 4 ciprofloxacin-de xAMETHasone (CIPRODEX) otic suspension Administer 4 drops into the right ear 2 (two) times a day Begin 1 week post op 7.5 mL 3 02/05/2023 3 clotrimazole-bet amethasone (LOTRISONE) cream Apply 1 Application topically daily as needed (rash) 4 coenzyme [id number] 100-5 mg-unit capsuleIndicatio ns:supplement Take 1 tablet by mouth bingo checker before breakfast 4 diphenoxylate-at ropine (LOMOTIL) 2.5-0.025 [...] week Fluids every -Heparin to flush 4 [facility] cabozantinib/maris cebo (2018-02-122/A02 1602) 20 mg tabletIndication s:cancer study Take 1 tablet (20 mg total) by mouth nightly Take on an empty stomach (no food for 2 hours before and 1 hour after each dose).?? Avoid Barber's Wort, grapefruit products and Jackson oranges while on treatment. 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 ??No significant change in hepatic and peritoneal metastases. 2. ??Stable right supraclavicular lymph node. 3. ??No evidence of disease progression. 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 Evaluate treatment response. TECHNIQUE: ??Transaxial computed tomographic images of the chest, abdomen and pelvis were obtained with intravenous contrast according to the standard protocol after the uneventful administration of 75 mL Opti-Ray 350 intravenous contrast. COMPARISON: CT dated 03/01/2023 FINDINGS: ?? Chest: Lower neck/axilla: A mildly prominent right supraclavicular lymph node measures 7 mm in short axis, unchanged (series 2, image 19). Lung/airway: The trachea and bronchi are clear. ?? No suspicious pulmonary nodules. ??There is no focal consolidation, pleural effusion, or pneumothorax. Cardiac: Heart size is normal. There is no pericardial effusion. Mediastinum/joey: No lymphadenopathy. Vasculature: A right internal jugular approach central venous catheter with chest port terminates at the cavoatrial junction. ??An aberrant right subclavian artery is noted. ??Atherosclerotic calcifications of the aorta and branch vessels are present. Thoracic soft tissues: Unremarkable. Abdomen/Pelvis: Hepatobiliary: Multiple hypoattenuating liver metastases are redemonstrated and not significantly changed since the prior study. For reference, a segment IVb lesion measures 2.6 x 2.8 cm (series 2, image 133), previously 2.7 x 2.7 cm. The gallbladder is absent. The common duct is borderline dilated measuring 7mm in diameter. Pancreas: Fatty atrophy noted. Spleen: Subcentimeter hypoattenuating lesions in the spleen are unchanged. Kidneys: A right renal cyst is present. ??The kidneys otherwise enhance symmetrically without hydronephrosis. Adrenals: Normal. Gastrointestinal: The stomach is unremarkable. A duodenal diverticulum is noted involving the 4th portion. ??Postoperative changes of right hemicolectomy with ileocolic reanastomosis are redemonstrated. ??A left lower quadrant diverting colostomy is present. ??A parastomal hernia containing small bowel is present. Mesentery/Retroperitoneum: Multiple peritoneal deposits are redemonstrated and not significantly changed. ??For reference, a 1.6 cm partially calcified spiculated mass along the sigmoid colon is unchanged from the prior study (series 2, image 247). ??A 1.8 cm pericaval deposit demonstrates internal fiducial markers versus linear calcification (series 2, image 201). ??A 2.8 cm deposit along the right vaginal cuff is unchanged (series 2, image 270). Vasculature: Aorta and branch vessels are atherosclerotic. Pelvis: The urinary bladder is decompressed. The uterus is absent. Bones/Soft Tissues: No suspicious lytic or blastic bone lesion. No CT correlate for known osseous metastases. Regions of fat necrosis are present in the bilateral flank soft tissues. ??No suspicious soft tissue lesion identified. 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 Evaluate treatment response. TECHNIQUE: Transaxial computed tomographic images of the chest, abdomen and pelvis were obtained with intravenous contrast according to the standard protocol after the uneventful administration of 75 mL Opti-Ray 350 intravenous contrast. COMPARISON: CT dated 03/01/2023 FINDINGS: Chest: Lower neck/axilla: A mildly prominent right supraclavicular lymph node measures 7 mm in short axis, unchanged (series 2, image 19). Lung/airway: The trachea and bronchi are clear. No suspicious pulmonary nodules. There is no focal consolidation, pleural effusion, or pneumothorax. Cardiac: Heart size is normal. There is no pericardial effusion. Mediastinum/joey: No lymphadenopathy. Vasculature: A right internal jugular approach central venous catheter with chest port terminates at the cavoatrial junction. An aberrant right subclavian artery is noted. Atherosclerotic calcifications of the aorta and branch vessels are present. Thoracic soft tissues: Unremarkable. Abdomen/Pelvis: Hepatobiliary: Multiple hypoattenuating liver metastases are redemonstrated and not significantly changed since the prior study. For reference, a segment IVb lesion measures 2.6 x 2.8 cm (series 2, image 133), previously 2.7 x 2.7 cm. The gallbladder is absent. The common duct is borderline dilated measuring 7mm in diameter. Pancreas: Fatty atrophy noted. Spleen: Subcentimeter hypoattenuating lesions in the spleen are unchanged. Kidneys: A right renal cyst is present. The kidneys otherwise enhance symmetrically without hydronephrosis. Adrenals: Normal. Gastrointestinal: The stomach is unremarkable. A duodenal diverticulum is noted involving the 4th portion. Postoperative changes of right hemicolectomy with ileocolic reanastomosis are redemonstrated. A left lower quadrant diverting colostomy is present. A parastomal hernia containing small bowel is present. Mesentery/Retroperitoneum: Multiple peritoneal deposits are redemonstrated and not significantly changed. For reference, a 1.6 cm partially calcified spiculated mass along the sigmoid colon is unchanged from the prior study (series 2, image 247). A 1.8 cm pericaval deposit demonstrates internal fiducial markers versus linear calcification (series 2, image 201). A 2.8 cm deposit along the right vaginal cuff is unchanged (series 2, image 270). Vasculature: Aorta and branch vessels are atherosclerotic. Pelvis: The urinary bladder is decompressed. The uterus is absent. Bones/Soft Tissues: No suspicious lytic or blastic bone lesion. No CT correlate for known osseous metastases. Regions of fat necrosis are present in the bilateral flank soft tissues. No suspicious soft tissue lesion identified. IMPRESSION: 1. No significant change in hepatic and peritoneal metastases. 2. Stable right supraclavicular lymph node. 3. No evidence of disease progression. 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) Other malignant neoplasm of unspecified site documented in this encounter Administered Medications Inactive Administered Medications - up to 3 most recent administrations Medication Order MAR Action Action Date Dose Rate Site ioversoL (OPTIRAY 350) syringe 100 mL 100 mL, intravenous, Once in imaging, contrast, Starting on Sat05/24/23 at 1539, For 1 dose Contrast Given 05/24/2023 3:42 PM DRYER AND WASHER MECHANIC 75 mL documented in this encounter Orders Medications Ordered That Brett ht Not Have Been Administered Count Last Ordered Date First Ordered Date ioversoL (OPTIRAY 350) syringe 100 mL 1 documented in this encounter Care Teams Process Trainer Relationship Specialty Start Date End Date Julio César Briseno MD PCP - General 10/01/16 Eren Cr MD Referring Physician Medical Oncology 11/25/18 Yohana Bowen MD Radiation Oncologist Radiation Oncology 11/25/18 Alejo Mi MD [address] [address] Referring Physician Nephrology 03/07/23 documented as of this encounter
--- OUTSIDE RECORDS SUMMARY | 2024-06-25 22:10 | XMS_ITS | Encounter Summary ---
Author Organization [facility] Address [address] [place] [address] Phone Care Team Providers Care Organizational Development Manager Name Role Phone Julio César Briseno MD Primary Care Provider [phone] Eren Cr MD Unavailable [phone] Yohana Bowen MD Unavailable CiscoAlejo Ramos MD Unavailable [phone] Reason for Visit * Reason Comments Injections * Episode Based Medications (Routine) - Authorized Specialty Diagnoses / Procedures Referred By Contac t Referred To Contact Oncology Diagnoses 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) Procedures PA OCTREOTIDE INJECTION, DEPOT Octreotide 28 Day Cycles - Carcinoid Eren Cr MD [address] [facility] [address] [place] [address] Phone: tel: fax: [address] [address] Phone: tel: fax: Referral ID Status Reason Start Date Expiration Date V isits Requested Visits Authorized [id number] Authorized 11/28/2017 02/05/2025 1 150 Encounter Details Date Type Department Care Team (Late st Contact Info) Description 05/02/2023 12:45 PM CDT Infusion [facility] Oncology [address] [place] [address] 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 [...] on file 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 female who presents for the following injection: Sandostatin. Nursing Assessment Nursing Assessment LOC: Awake Fatigue: Occassional Functional difficulty: (WDL) Any falls since your last visit?: No Orientation: Oriented x4 Behavior: Calm Speech: Clear Vision: At baseline Peripheral Neuropathy: No Pt states has potential to be ?: N/A Shortness of Breath?: No Lungs auscultated PRN: No Pt is on oxygen?: No Respiratory Effort Characteristics: Dyspnea exertion Cough: Absent Appetite: Fair Nausea/Vomiting: No Abdomen: Soft Diarrhea: (ostomy) Constipation: No Last BM Date: 05/02/23 Skin Condition/Temp: Warm, Dry, No swelling Swelling: No Additional Notes: Pt States she is able to care for self at home, she has no questions or concerns at this time. BP: 143/83 Temp: 36.2 ??C (97.2 ??F) Temp src: Temporal Pulse: 85 Resp: 16 SpO2: 97 % Weight: 78 kg (172 lb) Patient: met treatment parameters La Chung tolerated injection well Additional Notes: Discharge Plan Discharge instructions given to patient. Discharge Mode: Ambulatory Accompanied by: Self and Spouse Discharged To: Home documented in this [...] mg 30 mg, intramuscular, Once, On Lydia 05/02/23 at 1415, For 1 dose, Refrigerate. For IM intragluteal administration only- alternate gluteal sites. Scottke.Indications:Neuroendo crine carcinoma (HCC),Malignant neoplasm metastatic to liver (HCC) Given 05/02/2023 2:26 PM CDT 30 mg Right Dorsogluteal/Butt ock documented in this encounter Orders Medications Ordered That Brett ht Not Have Been Administered Count Last Ordered Date First Ordered Date denosumab (XGEVA) subcutaneo us syringe 120 mg 1 05/02/2023 octreotide LAR (SandoSTATIN LAR) extended release intramuscular injection 30 mg 1 05/02/2023 Nursing Count Last Ordered Date First Orde red Date ONCBCN NURSING COMMUNICATION [id number] 1 1 PHYSICIAN COMMUNICATION ORDER 1 05/02/2023 Appointment Requests Count Last Ordered Date Fi rst Ordered Date ONCBCN INJECTION APPOINTMENT REQUEST 1 04/08 documented in this encounter Care Teams Organizational Development Manager Relationship Specialty Start Date End Date Julio César Briseno MD PCP - General 10/01/16 Eren Cr MD Referring Physician Medical Oncology 11/25/18 Yohana Bowen MD Radiation Oncologist Radiation Oncology 11/25/18 Alejo Mi MD [address] [place] [address] Referring Physician Nephrology 03/07/23 documented as of this encounter
--- OUTSIDE RECORDS SUMMARY | 2024-06-25 22:10 | XMS_ITS | Encounter Summary ---
Author Organization [facility] Address [address] [place] [address] Phone Care Team Providers Care Game Moderator Name Role Phone Julio César Briseno MD Primary Care Provider [phone] Eren Cr MD Unavailable [phone] Yohana Bowen MD Unavailable Alejo Mi MD Unavailable [phone] Reason for Visit * Reason Comments Hearing Loss Pt is here for 3 mon follow up visit- s/p Rt Plasty Encounter Details Date Type Department Care Team (Late st Contact Info) Description 06/24/2023 11:45 AM DEFLECTOR OPERATOR Office Visit [facility] Otolaryngology [facility] [address] [facility], [address] [place] [address] Nasim Rojas MD [facility] N [facility] DEPT OTOLARYNGOLOGY, [facility] [address] [place] [address] Conductive hearing loss of right ear with unrestricted hearing of left ear (Primary Dx); Chronic atticoantral suppurative otitis media, right ear Social History Tobacco Use Types Packs/Day Years [...] on file Legal Sex Female 2:41 PM DEFLECTOR OPERATOR Gender Identity Not on file Sexual Orientation Straight 02/19/2021 9: 29 AM CDT Occupation Industry Job Start Date Job End Date retired Not on file Not on file Not on file documented as of this encounter Progress Notes * Nasim Rojas MD - 06/24/2023 11:45 AM CST Patient Name: La Chung Date of : 1950 Chief Complaint: Chief Complaint Patient presents with Hearing Loss Pt is here for 3 month follow up visit- s/p Rt Plasty HPI: This is a 72 y.o. female who presents today for evaluation of her right ear. Patient is seen 4months following a right tympanoplasty. Her postop course has been uneventful. She denies any otorrhea. Auditory function remains subjectively stable Past Medical/Surgical History Past Medical History: Diagnosis Date Arthritis Family [...] this procedure TOTAL KNEE ARTHROPLASTY Left 2015 Past Family/Social History Family History Problem Relation Age of Onset [...] Defer Partners: Male control/protection: Post-menopausal Alcohol Use: Not At Risk (11/21/2022) AUDIT-C Frequency of Alcohol Consumption: Monthly or less Average Number of Drinks: 1 or 2 Frequency of Binge Drinking: Never Medications/Allergies/Immunizations Current Outpatient Medications Medication Sig Dispense Refill 0.9 % sodium chloride (INV-BJ sodium chloride 0.9%) injection Infuse 10 mL into a venous catheter once a week On saturday 0.9 % sodium chloride (sodium chloride 0.9%) 0.9% infusion ascorbic acid, vitamin C, 500 mg capsule Take 1 tablet by mouth business account executive before breakfast cholecalciferol (VITAMIN D-3) 1,000 unit Take 1 tablet/capsule (1,000 Units total) by mouth daily (Patient taking differently: Take 1 tablet/capsule (1,000 Units total) by mouth every morning) 90 tablet/capsule 3 clotrimazole-betamethasone (LOTRISONE) cream Apply 1 Application topically daily as needed (rash) coenzyme [id number] 100-5 mg-unit capsule Take 1 tablet by mouth business account executive before breakfast denosumab (Xgeva) 120 mg/1.7 mL (70 mg/mL) injection Inject 1.7 mL (120 mg total) under the skin every 28 (twenty-eight) days diphenoxylate-atropine (LOMOTIL) 2.5-0.025 mg per tablet Take 1 tablet by mouth 4 (four) times a day as needed for diarrhea [address] (CYMBALTA) 30 mg capsule Take 1 capsule (30 mg total) by mouth daily (Patient taking differently: Take 1 capsule (30 mg total) by mouth every morning) 30 capsule 2 ergocalciferol (VITAMIN D) 50,000 unit capsule Take 1 capsule (50,000 Units total) by mouth once a week 12 capsule 0 fluticasone propionate (FLONASE) 50 mcg/actuation nasal spray Administer 2 sprays into each nostrildaily as needed for rhinitis or allergies (Patient not taking: Reported on 06/11/2023) heparin 100 unit/mL solution Infuse 5 mL (500 Units total) into a venous catheter once a week Fluids every -Heparin to flush [facility] cabozantinib/placebo (/[id number]) 20 mg tablet Take 1 tablet (20 mg total) bymouth nightly Take on an empty stomach (no food for 2 hours before and 1 hour after each dose). Avoid Jas's Wort, grapefruit products and [place] oranges while on treatment. placed on hold 09/26/22 for covid levothyroxine (SYNTHROID) 88 mcg tablet Take 1 tablet (88 mcg total) by mouth business account executive before breakfast (Patient taking differently: Take 1 tablet (88 mcg total) by mouth business account executive before breakfast) 90 tablet 1 lidocaine-prilocaine (lidocaine-prilocaine) cream Apply topically as needed [...] minutes prior to MRI) 2 tablet 0 montelukast (SINGULAIR) 10 mg tablet Take 1 tablet (10 mg total) by mouth as needed (allergies) (Patient not taking: Reported on 06/11/2023) octreotide (SandoSTATIN) 100 mcg/mL injection Inject 1 [...] venous catheter once a week Patient to [id number] of Normal Saline via CADD Coreas pump set at 300mL/Hr once weekly.- Saturday triamcinolone (KENALOG) 0.1 % ointment Apply to itchy rash on hands twice daily until improved (Patient not taking: Reported on 06/11/2023) 454 g 1 No current facility-administered medications for this visit. Facility-Administered Medications Ordered in Other Visits Medication Dose Route Frequency Provider Last Rate Last Admin L-arginine 1.25%/L-lysine 1.25% infusion 1,000 mL 1,000 mL intravenous Continuous Meagan Amaya MD Allergies: Morphine, Ezetimibe-simvastatin, and Ramipril, Immunizations: Immunization History Administered Date(s) Administered Influenza, Quadrivalent, Cell Culture-based MDCK, Preservative Free, Antibiotic Free, Efrfgcaypufxv58/15/2018 Influenza, Quadrivalent, High Dose, Preservative Free, Intrr 03/21/2020 Influenza, Trivalent, High Dose, Split, Preservative Free, Intramuscular 05/29/2016, 04/09/2017, 04/16/2019, 05/04/2019 Influenza, Unspecified 04/16/2014, 03/08/2015, 06/11/2018 Moderna SARS-CoV-2 Monovalent Vaccination (12+ YRS) 08/25/2020, 09/26/2020, 03/08/2021 Pneumococcal Conjugate PCV 13 05/29/2016, 07/12/2020 Pneumococcal Polysaccharide PPV23 05/26/2015 Tdap 11/20/2020 ZOSTER LIVE 05/26/2015, 05/27/2015 Review of Systems A complete review of systems was completed by the patient on the Patient History Form and reviewed with the patient during the visit. The Patient History Form can be found in the electronic medical record as a scanned document. Physical Exam Vital Signs: There were no vitals taken for this visit. General:female, sitting up in NAD, normal appearance and voice. EARS:Examination of the external ears was normal using visual inspection. The otology microscope was used for clear magnified visualization and three- dimensional imaging of the ear for detection of any observable pathology or pathologic anatomic configuration and charaterization of same. Right External auditory canal: normal Tympanic Membrane: Intact with postsurgical change Middle ear: normal Left: External auditory canal: normal Tympanic Membrane: normal Middle ear: normal Nose- No external deformity. Nasal passages clear. OC/OP- No lesions noted. Eyes- No nystagmus. EOMI. Cranial Nerves- 2-12 grossly intact. Neck- No lymphadenopathy or masses palpated. Gait- normal. ASSESSMENT/PLAN Patient is seen four months following a right tympanoplasty. Currently tympanic membranes intact and free disease. She has residual hearing loss due significant bilateral sensorineural deficits, which pre-existed her surgery. She will continue with hearing aid amplification under the care of her criminal intelligence specialist. Otherwise, she will return 1 year or sooner as needed. I have seen and examined the patient. I agree with the findings and plan of care as documented. MD Nasim Wiley M.D. Record Clerk, Otology and Neurotology Department of Otolaryngology [facility] [phone] ECTOR OPERATOR documented in this encounter Plan of Treatment Not on file documented as of this encounter Visit Diagnoses Diagnosis Conductive hearing loss of right ear with unrestricted hearing of left ear- Primary Chronic atticoantral suppurative otitis media, right ear documented in this encounter Care Teams Game Moderator Relationship Specialty Start Date End Date Julio César Briseno MD PCP - General 10/01/16 Eren Cr MD Referring Physician Medical Oncology 11/25/18 Yohana Bowen MD Radiation Oncologist Radiation Oncology 11/25/18 Alejo Mi MD [address] [place] [address] Referring Physician Nephrology 03/07/23 documented as of this encounter
--- OUTSIDE RECORDS SUMMARY | 2024-06-25 22:10 | XMS_ITS | Encounter Summary ---
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 Eren Cr MD [address] [facility] [address] [place] [address] Phone: tel: fax: [facility] [address] [facility] Advanced Medicine [address]th [place] [address] Phone: tel: Referral ID Status Reason Start Date Expiration Date Visits Re quested Visits Authorized [id number] Closed 06/21/2021 06/26/2024 1 99 Encounter Details Date Type Department Care Team (Latest Contact Info) Description 05/28/2023 11:00 AM TRAINING AND DEVELOPMENT MANAGER Clinical Support [facility] [address] [place] [address] 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 Dx); Neuro-endocrine carcinoma (HCC) Social History Tobacco Use [...] on file Legal Sex Female 2:41 PM TRAINING AND DEVELOPMENT MANAGER Gender Identity Not on file Sexual Orientation Straight 02/19/2021 9: 29 AM CDT Occupation Industry Job Start Date Job End Date retired Not on file Not on file Not on file documented as of this encounter Plan of Treatment Not on file documented as of this encounter Visit Diagnoses Diagnosis 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)- Primary Neuro-endocrine carcinoma (HCC) Other malignant neoplasm of unspecified site documented in this encounter Orders Medications Ordered That Brett ht Not Have Been Administered Count Last Ordered Date First Ordered Date alteplase (CATHFLO ACTIVASE) injection 2 mg 1 05/28/2023 Appointment Requests Count Last Ordered Date Fi rst Ordered Date ONCBCN LAB APPOINTMENT 1 05/28/2023 documented in this encounter Care Teams Respiratory Care Assistant Relationship Specialty Start Date End Date Julio César Briseno MD PCP - General 10/01/16 rEen Cr MD Referring Physician Medical Oncology 11/25/18 Yohana Bowen MD Radiation Oncologist Radiation Oncology 11/25/18 Alejo Mi MD [address] [address] Referring Physician Nephrology 03/07/23 documented as of this encounter
--- OUTSIDE RECORDS SUMMARY | 2024-06-25 22:10 | XMS_ITS | Encounter Summary ---
Author Organization [facility] Address [address] [place] [address] Care Team Providers Care Manager Configuration Name Role Phone Julio César Briseno MD Primary Care Provider [phone] Eren Cr MD Unavailable [phone] Yohana Bowen MD Unavailable Alejo Mi MD Unavailable [phone] Encounter Details Date Type Department Care Team (Late st Contact Info) Description 06/12/2023 10:00 AM TOP TILE DECORATOR Home Care Visit [facility] [place] [address] [address] [place] [id number] Willem Sung, RN SN HOME VISIT Social History Tobacco Use [...] on file Legal Sex Female 2:41 PM TOP TILE DECORATOR Gender Identity Not on file Sexual Orientation Straight 02/19/2021 9: 29 AM CDT Occupation Industry Job Start Date Job End Date retired Not on file Not on file Not on file documented as of this encounter Last Filed Vital Signs Vital Sign Reading Time Taken Comments Blood Pressure 136/66 06/12/2023 9:35 AM TOP TILE DECORATOR Pulse 86 06/12/2023 9:35 AM TOP TILE DECORATOR Temperature 36.3 ??C (97.3 ??F) 06/12/2023 9:35 AM CS T Respiratory Rate 16 06/12/2023 9:35 AM TOP TILE DECORATOR Oxygen Saturation 100% 06/12/2023 9:35 AM TOP TILE DECORATOR Inhaled Oxygen Concentration - - Weight - - Height - - Body Mass Index - - documented in this encounter Miscellaneous Notes * Home Health Plan for Next Visit - Willem Sung RN - 06/12/2023 9:22 AM CST Reason for today's visit: Assess, port access. Discuss plan of care with patient/caregiver. Discharge planning ongoing. Plan for next visit: Assess, access port. TILE DECORATOR documented in this encounter Plan of Treatment Not on file documented as of this encounter Visit Diagnoses Not on filedocumented in this encounter Administered Medications Inactive Administered Medications - up to 3 most recent administrations Medication Order MAR Action Action Date Dose Rate Site sodium chloride 0.9 % solution 1,000 mL, intravenous, Weekly, First dose on Lydia 06/13/23 at 0900, Patient to infuse 1000mL of Normal Saline via CADD Coreas pump set at 300mL/Hr once weekly.- Saturday, Indications: hydrationIndications:hydration Given 06/12/2023 9:46 AM TOP TILE DECORATOR 1,000 mL Given 06/12/2023 9:45 AM TOP TILE DECORATOR 1,000 mL documented in this encounter Home Health Visit - Care Plan Visit Details Visit Type -SN Home Visit Discipline -Alf Problems Problem Description Start Date Status Goals Interventions Medications Disciplines: Alf Management of IV Medications 05/08/2023 Active - 2 problem interventions scheduled/documen omar in this visit Safety concerns Disciplines: Alf Safety needs related to infusion administration 05/08/2023 Active - 1 problem intervention scheduled/documen omar in this visit Learning/Teachin g Needs - IV Therapy Disciplines: Alf Teaching and learning needs for performing home IV therapy 05/08/2023 Active - 7 problem interventions scheduled/documen omar in this visit Monitor patient's vital signs every home health visit Disciplines: SN, PT, OT, DEVELOPMENT AND HOUSING DIRECTOR, RESERVE OPERATOR, Skilled Disciplines Monitor patient's vital signs every [...] visit during episode of care Description: Home sterile technician to measure vital signs during every home [...] over 3 hours at 300ml/hour Problem:Medications Completed SN instructed patient/caregiver in medication administration, purpose, dosages, preparation, scheduling, side effects, food/drug interactions, storage, drug allergies, and potential complications. Medications instructed on: Infuse 1000ml of Normal Saline solution once weekly via CADD Coreas pump over 3 hours at 300ml/hour IV Infusion Description: Instruct patient/caregiver on IV infusion Infuse 1000ml of Normal Saline solution once weekly via CADD Coreas pump over 3 hours at 300ml/hour Problem:Medications Completed SN instruct patient/caregiver on IV infusion. Infuse 1000ml of Normal Saline solution once weekly via CADD Coreas pump over 3 hours at 300ml/hour Instruct on IV complications Description: Instruct patient/caregiver on how to manage breaks in line, signs/symptoms of complications, who to contact for complications and how to contact the nurse, MD and infusion service Problem:Safety concerns Completed SN instructed patient/caregiver on how to manage breaks in line, signs/symptoms of complications, who to contact for complications and how to contact the nurse, MD and infusion service Instruct on IV supplies Description: Instruct patient/caregiver in how to gather supplies, how to restock IV supplies in the home, prepare supplies, administer IV medication and disconnect IV medication, inspecting solution and supplies before infusing, and waste disposal. Problem:Learning/Teac soco Needs - IV Therapy Completed SN instructed patient/caregiver in how to gather supplies, how to restock IV supplies in the home, prepare supplies, administer IV medication and disconnect IV medication, inspecting solution and supplies before infusing, and waste disposal. Instruct Infection Prevention Description: Instruct patient/caregiver in strategies to prevent infection: Instruct patient/caregiver on how to recognize signs and symptoms of infection and when to notify nurse and/or physician. Problem:Learning/Teac soco Needs - IV Therapy Completed SN instructed patient/caregiver in strategies to prevent infection: Instruct patient/caregiver on how to recognize signs and symptoms of infection and when to notify HH nurse and/or physician. Dressing change Description: Skilled Nurse to instruct [...] Problem:Learning/Teac soco Needs - IV Therapy Completed Port accessed witout issues and med infusing well. Caregiver comfortable flushing line and deaccessing patient when infusion completed. Instruct on IV flush Description: Instruct patient/caregiver in how to perform flushing of IV line according to MD orders or protocol. Problem:Learning/Teac soco Needs - IV Therapy Completed SN instructed patient/caregiver in how to perform flushing of IV line according to MD orders or protocol. IV Discontinuation Description: Instruct patient/caregiver on how to remove peripheral IV after last infusion per MD order or instruct on process of removal of Central Venous Catheter if it is to be removed in the home after infusion therapy is completed by Skilled Nurse. Problem:Learning/Teac soco Needs - IV Therapy Completed Caregiver comfortable with deaccessing port. IV Administration Description: Skilled Nurse to instruct [...] health visit during episode of care Completed Patients VSS, afebrile and with no C/O pain or problems. Educate Patient on Infection Prevention Description: Instruct patient on signs and symptoms of infection IE: fever, odor, change in color, increased amount of drainage, purulent drainage, warmth. Problem:Infection Prevention Goal:Verbalize signs of infection Completed SN instructed patient on signs and symptoms of infection IE: fever, odor, change in color, increased amount of drainage, purulent drainage, warmth. Educate Family on Infection Prevention Description: Instructed family on signs and symptoms of infection IE: fever, odor, change in color, increased amount of drainage, purulent drainage, warmth. Problem:Infection Prevention Goal:Verbalize signs of infection Completed SN instructed family on signs and symptoms of infection IE: fever, odor, change in color, increased amount of drainage, purulent drainage, warmth. Assess safety Description: Assess patient safety Problem:Safety concerns Goal:Demonstrate use of safety precautions Completed Patients home is safe and clean with safe storage for all supplies and medications and with no safety risk noted. Instruct Fall Prevention Description: Instruct patient/caregiver in methods to prevent falls Problem:Safety concerns Goal:Demonstrate use of safety precautions Scheduled documented in this encounter Care Teams Manager Configuration Relationship Specialty Start Date End Date Julio César Briseno MD PCP - General 10/01/16 Eren Cr MD Referring Physician Medical Oncology 11/25/18 Yohana Bowen MD Radiation Oncologist Radiation Oncology 11/25/18 Alejo Mi MD [address] [address] Referring Physician Nephrology 03/07/23 documented as of this encounter
--- OUTSIDE RECORDS SUMMARY | 2024-06-25 22:10 | XMS_ITS | Encounter Summary ---
Author Organization [facility] Healthcare Address [address] [place] [address] Care Team Providers Care Paper Coater Name Role Phone Julio César Briseno MD Primary Care Provider [phone] Eren Cr MD Unavailable [phone] Yohana Bowen MD Unavailable Alejo Mi MD Unavailable [phone] Encounter Details Date Type Department Care Team (Latest Contact Info) Description 06/27/2023 12:20 PM CLASSROOM MONITOR - 06/27/2023 11:59 PM CLASSROOM MONITOR Hospital Encounter [facility] [address] [place] [address] [id number] Neuroendocrine carcinoma (HCC); Malignant neoplasm metastatic to [...] on file Legal Sex Female 2:41 PM CLASSROOM MONITOR Gender Identity Not on file Sexual Orientation [...] mouth nightly 0.9 % sodium chloride ([facility] sodium chloride 0.9%) injectionIndicat ions:line care Infuse 10 mL into a venous catheter once a week On saturday 4 0.9 % sodium chloride (sodium chloride 0.9%) 0.9% infusion 05/22/2023 4 ascorbic acid, vitamin C, 500 mg capsuleIndicatio ns:supplement 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 before 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 Avoid Jas's Wort, grapefruit products and Gridley oranges while on treatment. 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) DIFFERENTIAL AUTO Routine 06/27/2023 10: 04 AM CLASSROOM MONITOR 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) CHROMOGRANIN A Routine 06/27/2023 10:04 AM CLASSROOM MONITOR 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) CBC WITH AUTO DIFFERENTIAL Routine 06/27/2023 10:04 AM CLASSROOM MONITOR 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) VITAMIN D 25 HYDROXY Routine 06/27/2023 10:04 AM CLASSROOM MONITOR 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) MANUAL DIFFERENTIAL Routine 06/27/2023 1 0:04 AM CLASSROOM MONITOR 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) TSH Routine 06/27/2023 10:04 AM CLASSROOM MONITOR Neuro-endocrine carcinoma (HCC) PHOSPHORUS Routine 06/27/2023 10:04 AM CLASSROOM MONITOR 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) MAGNESIUM STAT 06/27/2023 10:04 AM CLASSROOM MONITOR Neuro-endocrine carcinoma (HCC) LIPID PANEL Routine 06/27/2023 10:04 AM CLASSROOM MONITOR 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) COMPREHENSIVE METABOLIC PANEL STAT 06/27/2023 10:04 AM CLASSROOM MONITOR 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) documented in this encounter Results * Protein / creatinine ratio, urine, random (06/27/2023 1:30 PM CLASSROOM MONITOR) Protein, ur, quant 5.5 mg/dL [facility] Comment: Interpretive Data No reference range established. Current interpretive data was last revised 2018. Creatinine Ur 79.8 mg/dL [facility] Comment: Interpretive Data No reference range established. Current interpretive data was last revised 2018. Protein/creatinin e ratio 68.9 0.0 - 180.0 mg/g CR [facility] Urine 06/27/2023 1:30 PM CLASSROOM MONITOR 06/27/2023 3:42 PM CLASSROOM MONITOR us Eren Cr MD LAB URINE ORDERABLES Final Re sult [facility] [place] [address] * (ABNORMAL) eGFR (06/27/2023 10:04 AM CLASSROOM MONITOR) eGFR 48(L) >=60 mL/min/1. 73 m2 [facility] Comment: Interpretive Data Reference Interval Normal ?>/= [...] interpretive data was last reviewed 2021. Blood 06/27/2023 10:0 4 AM CLASSROOM MONITOR 06/27/2023 10:06 AM CLASSROOM MONITOR us Eren Cr MD LAB BLOOD ORDERABLES Final Re sult [facility] [place] [address] * (ABNORMAL) Manual Differential (06/27/2023 10:04 AM CLASSROOM MONITOR) Differential Auto [facility] Neutrophil abs 1.9 1.5 - 6.5 K/cumm [facility] Comment:Testing performed by : [address] [address] Imm gran abs 0.0 0.0 - 0.1 K/cumm [facility] Lymphocyte abs 0.3(L) 0.8 - 3.3 K/cumm [facility] Monocyte abs 0.3 0.2 - 0.8 K/cumm [facility] Eosinophil abs 0.2 0.0 - 0.5 K/cumm [facility] Basophil abs 0.0 0.0 - 0.1 K/cumm [facility] Neutrophil pct 69.4 % [facility] Comment: Consistent with previous result Interpretive Data Percent cell count reference ranges are not reported, since discordance with absolute values may lead to misinterpretation of CBC data. Current Interpretive Data was last revised on 2017. Imm gran pct 0.4 % [facility] Comment: Interpretive Data Percent cell count reference ranges are not reported, since discordance with absolute values may lead to misinterpretation of CBC data. Current Interpretive Data was last revised on 2017. Lymphocyte pct 11.8 % [facility] Comment: Interpretive Data Percent cell count reference ranges are not reported, since discordance with absolute values may lead to misinterpretation of CBC data. Current Interpretive Data was last revised on 2017. Monocyte pct 10.8 % [facility] Comment: Interpretive Data Percent cell count reference ranges are not reported, since discordance with absolute values may lead to misinterpretation of CBC data. Current Interpretive Data was last revised on 2017. Eosinophil pct 7.2 % [facility] Comment: Interpretive Data Percent cell count reference ranges are not reported, since discordance with absolute values may lead to misinterpretation of CBC data. Current Interpretive Data was last revised on 2017. Basophil pct 0.4 % [facility] Comment: Interpretive Data Percent cell count reference ranges are not reported, since discordance with absolute values may lead to misinterpretation of CBC data. Current Interpretive Data was last revised on 2017. RBC morphology Normal [facility] Platelet estimate Decreased( A) [facility] Blood 06/27/2023 10:0 4 AM CLASSROOM MONITOR 06/27/2023 10:06 AM CLASSROOM MONITOR Eren Cr MD LAB BLOOD ORDERABLES Edited R esult - Final [facility] [place] [address] * (ABNORMAL) Differential, auto (06/27/2023 10:04 AM CLASSROOM MONITOR) Neutrophil abs 1.9 1.5 - 6.5 K/cumm [facility] Comment:Testing performed by : [facility], [address] [place] [address] Imm gran abs 0.0 0.0 - 0.1 K/cumm [facility] Lymphocyte abs 0.3(L) 0.8 - 3.3 K/cumm [facility] Monocyte abs 0.3 0.2 - 0.8 K/cumm [facility] Eosinophil abs 0.2 0.0 - 0.5 K/cumm [facility] Basophil abs 0.0 0.0 - 0.1 K/cumm [facility] Neutrophil pct 69.4 % [facility] Comment: Consistent with previous result Interpretive Data Percent cell count reference ranges are not reported, since discordance with absolute values may lead to misinterpretation of CBC data. Current Interpretive Data was last revised on 2017. Imm gran pct 0.4 % [facility] Comment: Interpretive Data Percent cell count reference ranges are not reported, since discordance with absolute values may lead to misinterpretation of CBC data. Current Interpretive Data was last revised on 2017. Lymphocyte pct 11.8 % [facility] Comment: Interpretive Data Percent cell count reference ranges are not reported, since discordance with absolute values may lead to misinterpretation of CBC data. Current Interpretive Data was last revised on 2017. Monocyte pct 10.8 % [facility] Comment: Interpretive Data Percent cell count reference ranges are not reported, since discordance with absolute values may lead to misinterpretation of CBC data. Current Interpretive Data was last revised on 2017. Eosinophil pct 7.2 % [facility] Comment: Interpretive Data Percent cell count reference ranges are not reported, since discordance with absolute values may lead to misinterpretation of CBC data. Current Interpretive Data was last revised on 2017. Basophil pct 0.4 % [facility] Comment: Interpretive Data Percent cell count reference ranges are not reported, since discordance with absolute values may lead to misinterpretation of CBC data. Current Interpretive Data was last revised on 2017. Blood 06/27/2023 10:0 4 AM CLASSROOM MONITOR 06/27/2023 10:06 AM CLASSROOM MONITOR Eren Cr MD LAB BLOOD ORDERABLES Final Re sult Performing Organization Address [facility] Co de Phone Number [facility] [place] [address] * Magnesium (06/27/2023 10:04 AM CLASSROOM MONITOR) Magnesium 1.5 1.4 - 2.5 mg/dL [facility] Comment:Testing performed by : [facility], [address] [place] [address] Blood 06/27/2023 10:0 4 AM CLASSROOM MONITOR 06/27/2023 10:06 AM CLASSROOM MONITOR Eren Cr MD LAB BLOOD ORDERABLES Final Re sult [facility] [place] [address] * (ABNORMAL) TSH (06/27/2023 10:04 AM CLASSROOM MONITOR) Thyroid Stimulating Hormone 5.88(H) 0.30 - 4.20 mcIUnit/mL [facility] Blood 06/27/2023 10:0 4 AM CLASSROOM MONITOR 06/27/2023 11:37 AM CLASSROOM MONITOR us Eren Cr MD LAB BLOOD ORDERABLES Final Re sult [facility] [place] [address] * (ABNORMAL) Lipid panel (06/27/2023 10:04 AM CLASSROOM MONITOR) Cholesterol 152 30 - 199 mg/dL [facility] Comment: Interpretive Data Ages < [...] revised on 2018. Triglycerides 150(H) <=149 mg/dL [facility] Comment: Interpretive Data Ages < [...] revised on 2018. HDL 62 >=40 mg/dL [facility] Comment: Interpretive [...] on 2018. LDL, calculated 60 <=129 mg/dL [facility] Comment: Interpretive [...] revised on 2018. Non-HDL Cholesterol 90 mg/dL [facility] Comment: Interpretive Data Ages < [...] last revised on 2018. Chol/HDL ratio 2 [facility] Blood 06/27/2023 10:0 4 AM CLASSROOM MONITOR 06/27/2023 11:37 AM CLASSROOM MONITOR Eren Cr MD LAB BLOOD ORDERABLES Final Re sult Performing Organization Address City/[facility] Co de Phone Number [facility] [place] [address] * (ABNORMAL) Phosphorus (06/27/2023 10:04 AM CLASSROOM MONITOR) Phosphorus, pl 2.0(L) 2.3 - 4.5 mg/dL [facility] Comment:Testing performed by : [facility], [address] [place] [address] Blood 06/27/2023 10:0 4 AM CLASSROOM MONITOR 06/27/2023 10:06 AM CLASSROOM MONITOR Eren Cr MD LAB BLOOD ORDERABLES Final Re sult Performing Organization Address City/[facility]/ZIP Co de Phone Number [facility] Department of Laboratories [place], [place] [id number] * (ABNORMAL) Vitamin D 25 hydroxy (06/27/2023 10:04 AM CLASSROOM MONITOR) Pathologist [facility] Vitamin D 25-OH 16(L) 30 - 80 ng/mL [facility] Blood 06/27/2023 10:0 4 AM CLASSROOM MONITOR 06/27/2023 11:37 AM CLASSROOM MONITOR Eren Cr MD LAB BLOOD ORDERABLES Final Re sult [facility] [place] [address] * (ABNORMAL) CBC with auto differential (06/27/2023 10:04 AM CLASSROOM MONITOR) [facility] WBC 2.8(L) 3.8 - 9.9 K/cumm [facility] Comment:Testing performed by : [address] [address] Hgb 11.2(L) 11.9 - 15.5 g/dL [facility] Comment:Testing performed by : [address] [address] Hct 34.1(L) 35.6 - 45.5 % [facility] Comment:Testing performed by : [address] [address] Plt 84(L) 150 - 400 K/cumm [facility] Comment:Testing performed by : [address] [address] MPV 10.5 9.1 - 12.3 fL [facility] RBC 3.42(L) 3.90 - 5.20 M/cumm [facility] MCV 99.7(H) 81.3 - 96.4 fL [facility] MCH 32.7 27.1 - 33.3 pg [facility] MCHC 32.8 32.3 - 35.7 g/dL [facility] RDW CV 14.4 11.1 - 14.9 % [facility] RDW SD 51.8(H) 35.7 - 48.1 fL [facility] NRBC abs 0.00 0.00 - 0.01 K/cumm [facility] Blood 06/27/2023 10:0 4 AM CLASSROOM MONITOR 06/27/2023 10:06 AM CLASSROOM MONITOR Eren Cr MD LAB BLOOD ORDERABLES Edited R esult - Final [facility] [place] [address] * (ABNORMAL) Comprehensive metabolic panel (06/27/2023 10:04 AM CLASSROOM MONITOR) Sodium 140 135 - 145 mmol/L [facility] Comment:Testing performed by : [address] [address] Potassium, pl 3.7 3.3 - 4.9 mmol/L [facility] Chloride 109 97 - 110 mmol/L [facility] CO2 27 22 - 32 mmol/L [facility] Anion gap 4 2 - 15 mmol/L [facility] BUN 11 6 - 25 mg/dL [facility] Creatinine 1.20(H) 0.60 - 1.10 mg/dL [facility] Glucose 129 70 - 199 mg/dL [facility] Comment: Interpretive Data Fasting glucose [...] 2022. Calcium 9.5 8.5 - 10.3 mg/dL [facility] Bilirubin, total 0.5 0.1 - 1.2 mg/dL [facility] Protein, pl 6.0(L) 6.5 - 8.5 g/dL [facility] Albumin 4.0 3.5 - 5.0 g/dL [facility] Alk phos 57 40 - 130 Units/L [facility] ALT 25 7 - 45 Units/L [facility] AST 35 10 - 45 Units/L [facility] Blood 06/27/2023 10:0 4 AM CLASSROOM MONITOR 06/27/2023 10:06 AM CLASSROOM MONITOR Eren Cr MD LAB BLOOD ORDERABLES Final Re sult [facility] [place] [address] * (ABNORMAL) Chromogranin A (06/27/2023 10:04 AM CLASSROOM MONITOR) Chromogranin A 1997(H) <93 ng/mL [facility] Comment: Impaired renal or hepatic function or treatment with proton pump inhibitors may result in artifactual elevations of Chromogranin A. ADDITIONAL INFORMATION This test was developed and its performance characteristics determined by [facility] in a manner consistent with CLIA [...] a homogeneous time-resolved immunofluorescent assay manufactured by [employer] and performed on the [employer] Kryptor Compact Plus. ? Values obtained with different assay methods or kits may be different and cannot be used interchangeably. ? Test results cannot be interpreted as absolute evidence for the presence or absence of malignant disease. Test Performed by: [facility] - [address] [address] Production Material Handler: Immanuel Novak M.D. 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
--- OUTSIDE RECORDS SUMMARY | 2024-06-25 22:10 | XMS_ITS | Encounter Summary ---
Author Organization [facility] Healthcare Address [address] [place] [address] Care Team Providers Care Machine Clothing Worker Name Role Phone Julio César Briseno MD Primary Care Provider [phone] Eren Cr MD Unavailable [phone] Yohana Bowen MD Unavailable Alejo Mi MD Unavailable [phone] Encounter Details Date Type Department Care Team (Late st Contact Info) Description 05/22/2023 12:15 PM WARD HELPER Home Care Visit [facility] [place] [address] [address] [place] [id number] Willem Sung, RN SN HOME VISIT Social [...] on file Legal Sex Female 2:41 PM WARD HELPER Gender Identity Not on file Sexual Orientation Straight 02/19/2021 9: 29 AM CDT Occupation Industry Job Start Date Job End Date retired Not on file Not on file Not on file documented as of this encounter Last Filed Vital Signs Vital Sign Reading Time Taken Comments Blood Pressure 136/82 05/22/2023 10:10 AM WARD HELPER Pulse 64 05/22/2023 10:10 AM WARD HELPER Temperature 36.3 ??C (97.3 ??F) 05/22/2023 10:[address] Respiratory Rate 16 05/22/2023 10:10 AM WARD HELPER Oxygen Saturation 100% 05/22/2023 10:10 AM WARD HELPER Inhaled Oxygen Concentration - - Weight 77.1 kg (170 lb) 05/22/2023 10:10 AM WARD HELPER Height - - Body Mass Index 31.09 03/29/2023 1:00 PM CDT documented in this encounter Miscellaneous Notes * Home Health Plan for Next Visit - Willem Sung RN - 05/22/2023 9:53 AM CST Reason for today's visit: Assessment, port access. Discuss plan of care with patient/caregiver. Discharge planning ongoing. Plan for next visit: Assessment, port access. HELPER documented in this encounter Plan of Treatment Not on file documented as of this encounter Visit Diagnoses Not on filedocumented in this encounter Administered Medications Inactive Administered Medications - up to 3 most recent administrations Medication Order MAR Action Action Date Dose Rate Site 0.9 % sodium chloride (INV-BJ sodium chloride 0.9%) injection 10 mL, intravenous, Weekly, First dose on Lydia 05/23/23 at 2230, On saturday, Indications: line careIndications:line care Given 05/22/2023 10:15 AM WARD HELPER 10 mL sodium chloride 0.9 % solution 1,000 mL, intravenous, Weekly, First dose on Lydia 05/23/23 at 2230, Patient to infuse 1000mL of Normal Saline via CADD Coreas pump set at 300mL/Hr once weekly.- Saturday, Indications: hydrationIndications:hydration Given 05/22/2023 10:20 AM WARD HELPER 1,000 mL documented in this encounter Home Health Visit - Care Plan Visit Details Visit Type -SN Home Visit Discipline -Retirement Problems Problem Description Start Date Status Goals Interventions Medications Disciplines: Retirement Management of IV Medications 05/08/2023 Active - 2 problem interventions scheduled/documen omar in this visit Safety concerns Disciplines: Retirement Safety needs related to infusion administration 05/08/2023 Active - 1 problem intervention scheduled/documen omar in this visit Learning/Teachin g Needs - IV Therapy Disciplines: Retirement Teaching and learning needs for performing home IV therapy 05/08/2023 Active - 6 problem interventions scheduled/documen omar in this visit Monitor patient's vital signs every home health visit Disciplines: SN, PT, OT, TRESTLE BUILDER, RN TRAVEL, Skilled Disciplines Monitor patient's vital signs every [...] visit during episode of care Description: Home pupil personnel services director to measure vital signs during every home [...] at 300ml/hour Problem:Medications Completed SN instructed patient/caregiver on IV infusion, Infuse 1000ml of Normal Saline solution once [...] Needs - IV Therapy Completed Port accessed without issues and flushes well. Patient comfortable with port and caregiver to deaccess. Instruct on IV flush Description: Instruct patient/caregiver in how to perform flushing of IV line according to MD orders or protocol. Problem:Learning/Teac soco Needs - IV Therapy Completed SN instructed patient/caregiver in how to perform flushing of IV line according to MD orders or protocol. IV Administration Description: Skilled Nurse to instruct [...] each line upon completion of infusion/flushes. Problem:Learning/Teac sooc Needs - IV Therapy Scheduled Monitor Vital Signs Description: Monitor blood pressure, pulse, oxygen saturation, respirations Problem:Monitor patient's vital signs every home health visit Goal:Measure vital signs during every home health visit during episode of care Completed Patients VSS, afebrile. Educate Family on Infection Prevention Description: Instructed family on signs and symptoms of infection IE: fever, odor, change in color, increased amount of drainage, purulent drainage, warmth. Problem:Infection Prevention Goal:Verbalize signs of infection Completed SN instructed family on signs and symptoms of infection IE: fever, odor, change in color, increased amount of drainage, purulent drainage, warmth. Educate Patient on Infection Prevention Description: Instruct patient on signs and symptoms of infection IE: fever, odor, change in color, increased amount of drainage, purulent drainage, warmth. Problem:Infection Prevention Goal:Verbalize signs of infection Scheduled Instruct Fall Prevention Description: Instruct patient/caregiver in methods to prevent falls Problem:Safety concerns Goal:Demonstrate use of safety precautions Completed SN instructed patient/caregiver in methods to prevent falls Assess safety Description: Assess patient safety Problem:Safety concerns Goal:Demonstrate use of safety precautions Completed Patients home is safe and clean with safe storage for all supplies and medications and with no safety risk noted. documented in this encounter Care Teams Machine Clothing Worker Relationship Specialty Start Date End Date Julio César Briseno MD PCP - General 10/01/16 Eren Cr MD Referring Physician Medical Oncology 11/25/18 Yohana Bowen MD Radiation Oncologist Radiation Oncology 11/25/18 Alejo Mi MD [address] [place] [id number] [place] [address] Referring Physician Nephrology 03/07/23 documented as of this encounter
--- OUTSIDE RECORDS SUMMARY | 2024-06-25 22:11 | XMS_ITS | Encounter Summary ---
Author Organization [facility] Address [address] [place] [address] Phone Care Team Providers Care Technical Document Writer Name Role Phone Julio César Briseno MD Primary Care Provider Eren Cr MD Unavailable [phone] Yohana Bowen MD Unavailable Alejo Mi MD Unavailable Encounter Details Date Type Department Care Team (Late st Contact Info) Description 04/23/2023 Orders Only [facility] Oncology [address] [place] [address] Eren Cr MD [address] [place] [address] Neuro-endocrine carcinoma (HCC) (Primary Dx) Social History [...] on file Legal 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 Magnesium 1.4 1.4 - 2.5 mg/dL [facility] Comment:Testing performed by : [address] [address] Blood 05/02/2023 12:1 2 PM CDT 05/02/2023 12:12 PM CDT Eren Cr MD LAB BLOOD ORDERABLES Final Re sult [facility] Department [place] [address] * Protein / creatinine ratio, urine, random (05/02/2023 12:00 PM CDT) Pathologist [facility] Protein, ur, quant 10.6 mg/dL [facility] Comment: Interpretive Data No reference range established. Current interpretive data was last revised 2018. Creatinine Ur 143.1 mg/dL [facility] Comment: Interpretive Data No reference range established. Current interpretive data was last revised 2018. Protein/creatinin e ratio 74.1 0.0 - 180.0 mg/g CR [facility] Urine 05/02/2023 12:0 0 PM CDT 05/02/2023 2:06 PM CDT us Eren Cr MD LAB URINE ORDERABLES Final Re sult [facility] Department [place] [address] documented in this encounter Visit Diagnoses Diagnosis Neuro-endocrine carcinoma (HCC)- Primary Other malignant neoplasm of unspecified site documented in this encounter Orders Appointment Requests Count Last Ordered Date Fi rst Ordered Date ONCBCN CLINIC APPOINTMENT REQUEST 1 023 ONCBCN LAB APPOINTMENT 1 05/02/2023 ONCBCN TAKE HOME STUDY DRUG APPT 1 05/02/20 documented in this encounter Care Teams Technical Document Writer Relationship Specialty Start Date End Date Julio César Briseno MD PCP - General 10/01/16 Eren rC MD Referring Physician Medical Oncology 11/25/18 Yohana Bowen MD Radiation Oncologist Radiation Oncology 11/25/18 Alejo Mi MD [address] [place] [address] Referring Physician Nephrology 03/07/23 documented as of this encounter
--- OUTSIDE RECORDS SUMMARY | 2024-06-25 22:11 | XMS_ITS | Encounter Summary ---
Author Organization [facility] Address [address] [place] [address] Phone Care Team Providers Care Director Employee Communications Name Role Phone Julio César Briseno MD Primary Care Provider Eren Cr MD Unavailable [phone] Yohana Bowen MD Unavailable Alejo Mi MD Unavailable [phone] Encounter Details Date Type Department Care Team (Late st Contact Info) Description 04/19/2023 Orders Only 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 ADDITIONAL INFORMATION This test was developed and its performance characteristics determined by [facility] in a manner consistent with CLIA [...] a homogeneous time-resolved immunofluorescent assay manufactured by [employer] and performed on the [employer] Compact Plus. ? Values obtained with different assay methods or kits may be different and cannot be used interchangeably. ? Test results cannot be interpreted as absolute evidence for the presence or absence of malignant disease. Test Performed by: [facility] [address] [place] [address] Head Golf Professional: Immanuel Novak M.D. Ph.D.; CLIA# [id number] Blood 05/02/2023 12:1 2 PM CDT 05/02/2023 2:10 PM CDT us Eren Cr MD LAB BLOOD ORDERABLES Final Re sult [facility] Department [place] [address] * (ABNORMAL) Comprehensive metabolic panel (05/02/2023 12:12 PM CDT) [facility] Sodium 138 135 - 145 mmol/L [facility] Comment:Testing performed by : [facility], [address] [place] [address] Potassium, pl 4.2 3.3 - 4.9 mmol/L [facility] Chloride 108 97 - 110 mmol/L [facility] CO2 25 22 - 32 mmol/L [facility] Anion gap 5 2 - 15 mmol/L [facility] BUN 16 6 - 25 mg/dL [facility] Creatinine 1.22(H) 0.60 - 1.10 mg/dL [facility] Glucose 121 70 - 199 mg/dL [facility] Comment: Interpretive Data Fasting glucose >/= 126 [...] 2022. Calcium 9.7 8.5 - 10.3 mg/dL [facility] Bilirubin, total 0.6 0.1 - 1.2 mg/dL [facility] Protein, pl 6.1(L) 6.5 - 8.5 g/dL [facility] Albumin 3.9 3.5 - 5.0 g/dL [facility] Alk phos 58 40 - 130 Units/L [facility] ALT 22 7 - 45 Units/L [facility] AST 32 10 - 45 Units/L [facility] Blood 05/02/2023 12:1 2 PM CDT 05/02/2023 12:12 PM CDT us Eren Cr MD LAB BLOOD ORDERABLES Final Re sult [facility] Department [place] [address] * (ABNORMAL) CBC with auto differential (05/02/2023 12:12 PM CDT) [facility] WBC 3.3(L) 3.8 - 9.9 K/cumm [facility] Comment:Testing performed by : [address] [address] Hgb 10.9(L) 11.9 - 15.5 g/dL [facility] Comment: Testing performed by: [facility], [address] [place] [address] Interpretive Data A reference range for this assay has not been established for patients with an unknown legal sex. Please refer to the laboratory test catalog for established sex-specific reference intervals. Current interpretive data was last revised on 2023. Hct 32.8(L) 35.6 - 45.5 % [facility] Comment: Testing performed by: [facility], [address] [place] [address] Interpretive Data A reference range for this assay has not been established for patients with an unknown legal sex. Please refer to the laboratory test catalog for established sex-specific reference intervals. Current interpretive data was last revised on 2023. Plt 90(L) 150 - 400 K/cumm [facility] Comment:Testing performed by : [facility], [address] [facility] [address] MPV 10.9 9.1 - 12.3 fL [facility] RBC 3.33(L) 3.90 - 5.20 M/cumm [facility] Comment: Interpretive Data A reference range for this assay has not been established for patients with an unknown legal sex. Please refer to the laboratory test catalog for established sex-specific reference intervals. Current interpretive data was last revised on 2023. MCV 98.5(H) 81.3 - 96.4 fL [facility] MCH 32.7 27.1 - 33.3 pg [facility] MCHC 33.2 32.3 - 35.7 g/dL [facility] RDW CV 14.1 11.1 - 14.9 % [facility] RDW SD 50.5(H) 35.7 - 48.1 fL [facility] NRBC abs 0.00 0.00 - 0.01 K/cumm [facility] Blood 05/02/2023 12:1 2 PM CDT 05/02/2023 12:12 PM CDT Eren Cr MD LAB BLOOD ORDERABLES Final Re sult Performing Organization Address [facility] Co de Phone Number [facility] [place] [address] * (ABNORMAL) Vitamin D 25 hydroxy (05/02/2023 12:12 PM CDT) [facility] Vitamin D 25-OH 17(L) 30 - 80 ng/mL [facility] Blood 05/02/2023 12:1 2 PM CDT 05/02/2023 2:06 PM CDT Eren Cr MD LAB BLOOD ORDERABLES Final Re sult Performing Organization Address [facility] Co de Phone Number [facility] Department [place] [address] * (ABNORMAL) Phosphorus (05/02/2023 12:12 PM CDT) Phosphorus, pl 1.9(L) 2.3 - 4.5 mg/dL [facility] Comment:Testing performed by : [facility], [address] [place] [address] Blood 05/02/2023 12:1 2 PM CDT 05/02/2023 12:12 PM CDT us Eren Cr MD LAB BLOOD ORDERABLES Final Re sult [facility] Department [place] [address] * Lipid panel (05/02/2023 12:12 PM CDT) Cholesterol 149 30 - 199 mg/dL [facility] Comment: [...] Data was last revised on 2018. Triglycerides 128 <=149 mg/dL [facility] Comment: Interpretive Data [...] Data was last revised on 2018. HDL 60 >=40 mg/dL [facility] [...] was last revised on 2018. LDL, calculated 63 <=129 mg/dL [facility] [...] was last revised on 2018. Non-HDL Cholesterol 89 mg/dL [facility] Comment: [...] last revised on 2018. 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) documented in this encounter Orders Appointment Requests Count Last Ordered Date Fi rst Ordered Date ONCBCN CLINIC APPOINTMENT REQUEST 1 023 ONCBCN INJECTION APPOINTMENT REQUEST 1 04/08 ONCBCN LAB APPOINTMENT 1 05/02/2023 documented in this encounter Care Teams Director Employee Communications Relationship Specialty Start Date End Date Julio César Briseno MD PCP - General 10/01/16 Eren Cr MD Referring Physician Medical Oncology 11/25/18 Yohana Bowen MD Radiation Oncologist Radiation Oncology 11/25/18 Alejo Mi MD [address] [facility] [address] [place] [address] Referring Physician Nephrology 03/07/23 documented as of this encounter
--- OUTSIDE RECORDS SUMMARY | 2024-06-25 22:11 | XMS_ITS | Encounter Summary ---
Author Organization [facility] Address [address] [place] [address] Phone Care Team Providers Care Deck Worker Name Role Phone Julio César Briseno MD Primary Care Provider [phone] Eren Cr MD Unavailable [phone] Yohana Bowen MD Unavailable Alejo Mi MD Unavailable [phone] Reason for Visit * Reason Comments Chronic Fatigue Encounter Details Date Type Department Care Team (Late st Contact Info) Description 05/01/2023 11:45 AM CDT Home Care Visit [facility] [address] [place] [address] Sherlyn Orozco RN SN HOME VISIT Social History Tobacco [...] on file 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 Gender Identity Not on file Sexual Orientation Straight 02/19/2021 9: 29 AM CDT Occupation Industry Job Start Date Job End Date retired Not on file Not on file Not on file documented as of this encounter Last Filed Vital Signs Vital Sign Reading Time Taken Comments Blood Pressure 140/70 05/01/2023 1:00 PM CDT Pulse 70 05/01/2023 1:00 PM CDT Temperature 36.2 ??C (97.1 ??F) 05/01/2023 1:00 PM CD T Respiratory Rate 17 05/01/2023 1:00 PM CDT Oxygen Saturation 97% 05/01/2023 1:00 PM CDT Inhaled Oxygen Concentration - - Weight - - Height - - Body Mass Index - - documented in this encounter Miscellaneous Notes * Home Health Plan for Next Visit - Sherlyn Orozco RN - 05/01/2023 1:00 PM CDT Reason for today's visit assessment, instruction, port access Discuss plan of care with pt verb good understanding Discharge planning indef Plan for next visit weekly assessment, instruction port access documented in this encounter Plan of Treatment Not on file documented as of this encounter Visit Diagnoses Not on filedocumented in this encounter Administered Medications Inactive Administered Medications - up to 3 most recent administrations Medication Order MAR Action Action Date Dose Rate Site 0.9 % sodium chloride ([facility] sodium chloride 0.9%) injection 10 mL, intravenous, Weekly, First dose on Sat05/01/23 at 1630, On saturday, Indications: line careIndications:line care Given 05/01/2023 1:00 PM CDT 10 mL sodium chloride 0.9 % solution 1,000 mL, intravenous, Weekly, First dose on Sat05/01/23 at 1630, Patient to infuse 1000mL of Normal Saline via CADD Coreas pump set at 300mL/Hr once weekly.- Saturday, Indications: hydrationIndications:hydration Given 05/01/2023 1:15 PM CDT 1,000 mL documented in this encounter Home Health Visit - Care Plan Visit Details Visit Type -SN Home Visit Discipline -Fci Problems Problem Description Start Date Status Goals Interventions Safety concerns Disciplines: Fci Safety needs related to infusion administration 11/14/2022 Active - 1 problem intervention scheduled/documen omar in this visit Learning/Teachin g Needs - IV Therapy Disciplines: [facility]ci Teaching and learning needs for performing home IV therapy 11/14/2022 Active - 6 problem interventions scheduled/documen omar in this visit Monitor patient's vital signs every home health visit Disciplines: SN, PT, OT, CREAM TESTER, SALES PROJECT ENGINEER, Skilled Disciplines Monitor patient's vital signs every home health visit. 11/14/2022 Active 1 goal linked to scheduled/docume nted intervention 1 goal intervention scheduled/documen omar in this visit Infection Prevention Disciplines: Skilled Disciplines Infection Prevention 11/14/2022 Active 1 goal linked to scheduled/docume nted intervention 2 goal interventions scheduled/documen omar in this visit Safety concerns Disciplines: Skilled Disciplines Alteration in safety 11/14/2022 Active 1 goal linked to scheduled/docume nted intervention 2 goal interventions scheduled/documen omar in this visit Goals Goal Associated Problem Outcome Goal Met? Visit Notes Measure vital signs during every home health visit during episode of care Description: Home pick up truck driver to measure vital signs during every home [...] Associated Problem/Goal Status Variance Visit Notes Instruct on IV complications Description: Instruct patient/caregiver on how to manage breaks in line, signs/symptoms of complications, who to contact for complications and how to contact the nurse, MD and infusion service Problem:Safety concerns Scheduled Dressing change Description: Skilled Nurse to [...] circumference weekly and PRN. Type of line: Port-a-cath Problem:Learning/Teac soco Needs - IV Therapy Completed Skilled Nurse to instruct patient/caregiver on dressing change frequency. weekly port reaccess per rn. deaccess port needle if present. rn to perform sterile prep to insertion site with chlorhexidine x 30 seconds. allow to dry. access with 20g 3/4 inch gripper needle. assess for blood return. secure with steri strips and cover with occlusive dressing. changed clave with each port reaccess. flush per med list with ns and heparin. change prn if leaking or dislodged. Instruct on IV supplies Description: Instruct patient/caregiver in how to gather supplies, how to restock IV supplies in the home, prepare supplies, administer IV medication and disconnect IV medication, inspecting solution and supplies before infusing, and waste disposal. Problem:Learning/Teac soco Needs - IV Therapy Scheduled Instruct Infection Prevention Description: Instruct patient/caregiver in strategies to prevent infection. Instruct patient/caregiver on how to recognize signs and symptoms of infection and when to notify HH nurse and/or physician. Problem:Learning/Teac soco Needs - IV Therapy Scheduled IV Administration Description: Skilled Nurse to instruct patient/caregiver on how to properly administer medication saline and heparin. Skilled Nurse to instruct patient/caregiver to administer IV medication as ordered including saline and heparin flushes. Reason for Therapy: Iv hydration. Problem:Learning/Teac soco Needs - IV Therapy Scheduled [...] Description: Monitor blood pressure, pulse, oxygen saturation, respirations, and temperature. Problem:Monitor patient's vital signs every home health visit Goal:Measure vital signs during every home health visit during episode of care Completed VSS Educate Patient on Infection Prevention Description: Instruct patient on signs and symptoms of infection IE: fever, odor, change in color, increased amount of drainage, purulent drainage, warmth. Problem:Infection Prevention Goal:Verbalize signs of infection Completed pt verb good understanding of infection prevention including proper handwashing and use of universal precautions Educate Family on Infection Prevention Description: Instructed [...] Scheduled documented in this encounter Care Teams Deck Worker Relationship Specialty Start Date End Date Julio César Briseno MD PCP - General 10/01/16 Eren Cr MD Referring Physician Medical Oncology 11/25/18 Yohana Bowen MD Radiation Oncologist Radiation Oncology 11/25/18 Alejo Mi MD [address] [place] [address] Referring Physician Nephrology 03/07/23 documented as of this encounter
--- OUTSIDE RECORDS SUMMARY | 2024-06-25 22:11 | XMS_ITS | Encounter Summary ---
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 Gender Identity Not on file Sexual Orientation Straight 02/19/2021 9: 29 AM CDT Occupation Industry Job Start Date Job End Date retired Not on file Not on file Not on file documented as of this encounter Last Filed Vital Signs Vital Sign Reading Time Taken Comments Blood Pressure 128/74 04/03/2023 1:20 PM CDT Pulse 70 04/03/2023 1:20 PM CDT Temperature 36.1 ??C (96.9 ??F) 04/03/2023 1:20 PM CD T Respiratory Rate 18 04/03/2023 1:20 PM CDT Oxygen Saturation 98% 04/03/2023 1:20 PM CDT Inhaled Oxygen Concentration - - Weight 77.1 kg (170 lb) 04/03/2023 1:20 PM CDT Height - - Body Mass Index 31.09 03/29/2023 1:00 PM CDT documented in this encounter Miscellaneous Notes * Home Health Plan for Next Visit - Luciano Howard RN - 04/03/2023 12:31 PM CDT Reason for today's visit port access, iv fluids start, pt assessment, instruction Discuss plan of care with pt and spouse Discharge planning indef Plan for next visit port access, start iv fluids pt assessment, instruction documented in this encounter Plan of Treatment Not on file documented as of this encounter Visit Diagnoses Not on filedocumented in this encounter Administered Medications Inactive Administered Medications - up to 3 most recent administrations Medication Order MAR Action Action Date Dose Rate Site 0.9 % sodium chloride ([facility] sodium chloride 0.9%) injection 10 mL, intravenous, Weekly, First dose on Lydia 04/04/23 at 2200, On saturday, Indications: line careIndications:line care Given 04/03/2023 1:00 PM CDT 10 mL sodium chloride 0.9 % solution 1,000 mL, intravenous, Weekly, First dose on Lydia 04/04/23 at 2200, Patient to infuse 1000mL of Normal Saline via CADD Coreas pump set at 300mL/Hr once weekly.- Saturday, Indications: hydrationIndications:hydration Given 04/03/2023 1:10 PM CDT 1,000 mL documented in this encounter Home Health Visit - Care Plan Visit Details Visit Type -SN Home Visit Discipline -Residential Problems Problem Description Start Date Status Goals Interventions Safety concerns Disciplines: Residential Safety needs related to infusion administration 11/14/2022 Active - 1 problem intervention scheduled/documen omar in this visit Learning/Teachin g Needs - IV Therapy Disciplines: Residential Teaching and learning needs for performing home IV therapy 11/14/2022 Active - 7 problem interventions scheduled/documen omar in this visit Monitor patient's vital signs every home health visit Disciplines: SN, PT, OT, MALWARE ANALYST, ISOBUTYLENE OPERATOR CHIEF, Skilled Disciplines Monitor patient's vital signs every [...] visit during episode of care Description: Home behavioral health clinician to measure vital signs during every [...] MD and infusion service Problem:Safety concerns Completed to report any problems with iv catheter or iv medical services coordinator pt verb good understanding. has agency 24 hr number in her telephone IV Administration Description: Skilled Nurse to instruct patient/caregiver on how to properly administer medication saline and heparin. Skilled Nurse to instruct patient/caregiver to administer IV medication as ordered including saline and heparin flushes. Reason for Therapy: Iv hydration. Problem:Learning/Teac soco Needs - IV Therapy Completed iv fluids started per cadd pump new batteries Dressing change Description: Skilled Nurse to instruct [...] Problem:Learning/Teac soco Needs - IV Therapy Completed port accessed. sterile prep to insert site wiht chlorhexidine x 30 seconds, allowed to dry. 20g 3/4 inch casey needle inserted. good blood return. secured with sterile strips and occlusive dressing. new clave added and alcohol swab cap. connection taped securely good blood return noted with flush IV Discontinuation Description: Instruct patient/caregiver on how to remove peripheral IV after last infusion per MD order or instruct on process of removal of Central Venous Catheter if it is to be removed in the home after infusion therapy is completed by Skilled Nurse. Problem:Learning/Teac soco Needs - IV Therapy Completed spouse to dc fluids flush and deaccess port. he is indep Instruct on IV supplies Description: Instruct patient/caregiver [...] health visit during episode of care Completed vss Educate Patient on Infection Prevention Description: Instruct patient on signs and symptoms of infection IE: fever, odor, change in color, increased amount of drainage, purulent drainage, warmth. Problem:Infection Prevention Goal:Verbalize signs of infection Completed reviewed good handwashing, quality control engineering technician with all aspects of iv admin, and keeping port site clean and dry and dressing occlusive at all times pt verb good understanding Educate Family on Infection Prevention Description: Instructed family on signs and symptoms of infection IE: fever, odor, change in color, increased amount of drainage, purulent drainage, warmth. Problem:Infection Prevention Goal:Verbalize signs of infection Scheduled Assess safety Description: Assess patient safety Problem:Safety concerns Goal:Demonstrate use of safety precautions Completed pt safe in home with spouse Instruct Fall Prevention Description: Instruct patient/caregiver in methods to prevent falls Problem:Safety concerns Goal:Demonstrate use of safety precautions Scheduled documented in this encounter Care Teams Sliver Lap Tender Relationship Specialty Start Date End Date Julio César Briseno MD PCP - General 10/01/16 Eren Cr MD Referring Physician Medical Oncology 11/25/18 Yohana Bowen MD Radiation Oncologist Radiation Oncology 11/25/18 Alejo Mi MD [address] [place] [address] Referring Physician Nephrology 03/07/23 documented as of this encounter
--- OUTSIDE RECORDS SUMMARY | 2024-06-25 22:11 | XMS_ITS | Encounter Summary ---
Author Organization [facility] Address [address] [place] [address] Phone Care Team Providers Care Captain Room Service Name Role Phone Julio César Briseno MD Primary Care Provider [phone] Eren Cr MD Unavailable [phone] Yohana Bowen MD Unavailable Alejo Mi MD Unavailable [phone] Reason for Visit * Reason Comments Chronic Fatigue Encounter Details Date Type Department Care Team (Late st Contact Info) Description 04/24/2023 12:15 PM CDT Home Care Visit [facility] [address] [place] [address] Sherlyn Orozco RN SN HOME VISIT Social [...] on file 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 Gender Identity Not on file Sexual Orientation Straight 02/19/2021 9: 29 AM CDT Occupation Industry Job Start Date Job End Date retired Not on file Not on file Not on file documented as of this encounter Last Filed Vital Signs Vital Sign Reading Time Taken Comments Blood Pressure 140/70 04/24/2023 1:30 PM CDT Pulse 73 04/24/2023 1:30 PM CDT Temperature 36.3 ??C (97.3 ??F) 04/24/2023 1:30 PM CD T Respiratory Rate 17 04/24/2023 1:30 PM CDT Oxygen Saturation 97% 04/24/2023 1:30 PM CDT Inhaled Oxygen Concentration - - Weight - - Height - - Body Mass Index - - documented in this encounter Miscellaneous Notes * Home Health Plan for Next Visit - Sherlyn Orozco RN - 04/24/2023 1:30 PM CDT Reason for today's visit assessment, instruction, port access Discuss plan of care with pt verb good understanding Discharge planning indef Plan for next visit weekly assessment, instruction, port access documented in this encounter Plan of Treatment Not on file documented as of this encounter Visit Diagnoses Not on filedocumented in this encounter Administered Medications Inactive Administered Medications - up to 3 most recent administrations Medication Order MAR Action Action Date Dose Rate Site 0.9 % sodium chloride ([facility] sodium chloride 0.9%) injection 10 mL, intravenous, Weekly, First dose on Sat04/26/23 at 2315, On saturday, Indications: line careIndications:line care Given 04/24/2023 1:30 PM CDT 10 mL sodium chloride 0.9 % solution 1,000 mL, intravenous, Weekly, First dose on Sat04/26/23 at 2315, Patient to infuse 1000mL of Normal Saline via CADD Coreas pump set at 300mL/Hr once weekly.- Saturday, Indications: hydrationIndications:hydration Given 04/24/2023 1:30 PM CDT 1,000 mL documented in this encounter Home Health Visit - Care Plan Visit Details Visit Type -SN Home Visit Discipline -Mcfp Problems Problem Description Start Date Status Goals Interventions Safety concerns Disciplines: Mcfp Safety needs related to infusion administration 11/14/2022 Active - 1 problem intervention scheduled/documen omar in this visit Learning/Teachin g Needs - IV Therapy Disciplines: Mcfp Teaching and learning needs for performing home IV therapy 11/14/2022 Active - 6 problem interventions scheduled/documen omar in this visit Monitor patient's vital signs every home health visit Disciplines: SN, PT, OT, MUSSEL OPENER, BILINGUAL TRAINER, Skilled Disciplines Monitor patient's vital signs every [...] visit during episode of care Description: Home reclamation worker to measure vital signs during every home [...] needle. assess for blood return. secure with steristrips and cover with occlusive dressing. change clave with each port reaccess. flush per med list with ns and heparin. change prn if leaking or dislodged. cover clave with alcohol swab cap Instruct on IV supplies Description: Instruct patient/caregiver [...] Scheduled documented in this encounter Care Teams Captain Room Service Relationship Specialty Start Date End Date Julio César Briseno MD PCP - General 10/01/16 Eren Cr MD Referring Physician Medical Oncology 11/25/18 Yohana Bowen MD Radiation Oncologist Radiation Oncology 11/25/18 Alejo Mi MD [address] [address] Referring Physician Nephrology 03/07/23 documented as of this encounter
--- OUTSIDE RECORDS SUMMARY | 2024-06-25 22:11 | XMS_ITS | Encounter Summary ---
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) Procedures CT chest abdomen pelvis with contrast Eren Cr MD [address] [place] [address] Phone: tel: fax: [address] [phone] Referral ID Status Reason Start Date Expiration Date Visits Re quested Visits Authorized [id number] Closed 05/02/2023 05/31/2024 1 1 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) Procedures PA OCTREOTIDE INJECTION, DEPOT Octreotide 28 Day Cycles - Carcinoid Eren Cr MD [address] [facility] [address] [place] [address] Phone: tel: fax: [facility] [address] [place] [phone] Phone: tel: fax: Referral ID Status Reason Start Date Expiration Date V isits Requested Visits Authorized [id number] Authorized 11/28/2017 02/05/2025 1 150 Encounter Details Date Type Department Care Team (Late st Contact Info) Description 05/02/2023 12:00 PM CDT Office Visit [facility] Oncology [address] [place] [phone] Billie Raymundo NP [address] [facility] [place] [phone] 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 Dx); 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); Neuro-endocrine carcinoma (HCC); Neuroendocrine carcinoma (HCC) Social History Tobacco [...] on file Legal Sex Female 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 Gender Identity Not on file Sexual Orientation Straight 02/19/2021 9: 29 AM CDT Occupation Industry Job Start Date Job End Date retired Not on file Not on file Not on file documented as of this encounter Last Filed Vital Signs Vital Sign Reading Time Taken Comments Blood Pressure 143/83 05/02/2023 12:19 PM CDT Pulse 85 05/02/2023 12:19 PM CDT Temperature 36.2 ??C (97.2 ??F) 05/02/2023 12:19 PM C DT Respiratory Rate 16 05/02/2023 12:19 PM CDT Oxygen Saturation 97% 05/02/2023 12:19 PM CDT Inhaled Oxygen Concentration - - Weight 78 kg (172 lb) 05/02/2023 12:19 PM CDT Height - - Body Mass Index 31.46 03/29/2023 1:00 PM CDT documented in this encounter Progress Notes * Billie Raymundo NP - 05/02/2023 12:00 PM CDT Images from the original note were not included. MEDICAL ONCOLOGY OUTPATIENT ROV NOTE La Chung : 1950 DATE OF VISIT: 05/03/2023 Oncology History Overview Note DIAGNOSIS: well differentiated [...] time, she also underwent right colectomy in [facility] [place] by Dr. Greyson Reeves. Biopsy revealed [...] presents for follow-up routine oncologic care. She is accompanied by her spouse today. She has been on a clinical trial with 20 mg cabozantinib/placebo daily. She comes today for cycle 23 day 1. She is here with her daughter. She is feeling well. She continues to endorse swelling to her eyes and watery eyes. Improved now this afternoon. Her retail coordinator is monitoring her thyroid function tests. Patient notes she may be referred to an digital experience manager. She continues to have bruising to her arms. She otherwise denies fevers, chills, shortness of breath, cough, nausea, vomiting, worsening diarrhea (she notes she normally has diarrhea, not more than usual), pain, blood in the stools, rash or urinary issues or changes. REVIEW OF SYSTEMS: A complete review of systems was performed and positive and pertinent negative responses are documented in the history of present illness All other systems were negative. PHYSICAL EXAM: ECOG PS: 1 VITALS: BP 143/83 Pulse 85 Temp 36.2 ??C (97.2 ??F) (Temporal) Resp 16 Wt 78 kg (172 lb) SpO2 97% BMI 31.46 kg/m?? GEN: Calm, conversant, well-appearing female in no apparent distress. HEENT: Sclerae anicteric, Mild bilateral periorbital edema, nonpitting. No conjunctival injection or hemorrhage LYMPH: No palpable cervical, supraclavicular lymphadenopathy. CV: RRR, no m/r/g PULM/CHEST: Clear to auscultation bilaterally. No wheezes or rales. Unlabored breathing. ABD: Soft, non tender, non distended, bowel sounds present. Ostomy in LLQ, liquid stool. EXT: No LE edema, warm and well-perfused SKIN: No rashes over exposed skin. Scattered bruises to bilateral fore arms, scattered petechiae. NEURO: A&Ox4, flight radio officer grossly intact by conversation, moving all extremities well, no focal deficits appreciated PSYCH: Mood euthymic, affect appropriate and congruent, speech clear and goal-directed LABORATORY: I personally reviewed all laboratories and discussed with patient during office visit, selected values included below. Hematology Lab History Latest Ref Rng & Units 02/07/2023 13:39 03/07/2023 09:23 04/04/2023 14:32 05/02/2023 12:12 Labs - Hematology WBC 3.8 - 9.9 K/cumm 3.1 2.6 3.1 3.3 Total Hb, POC 11.9 - 15.5 g/dL 11.3 10.9 10.8 10.9 Hct 35.6 - 45.5 % 34.9 33.4 32.5 32.8 Plt 150 - 400 K/cumm 95 89 88 90 Neutrophil abs 1.7 - 6.5 K/cumm 1.9 1.6 2.0 2.5 Lymphocytes, abs 0.8 - 3.3 K/cumm 0.5 0.4 0.4 0.3 Chem/LFT Lab History Latest Ref Rng & Units 02/07/2023 13:39 03/07/2023 09:23 04/04/2023 14:32 05/02/2023 12:12 Labs-Chem/LFT Sodium 135 - 145 mmol/L 140 141 139 138 Creatinine 0.60 - 1.10 mg/dL 1.30 1.25 1.22 1.22 Bilirubin, total 0.1 - 1.2 mg/dL 0.5 0.6 0.5 0.6 AST 10 - 45 Units/L 29 34 33 32 ALT 7 - 45 Units/L 21 24 24 22 Alk phos 40 - 130 Units/L 62 59 61 58 CrCl- Actual Body Weight (Cockcroft-Gault) 46.5 48.8 49.9 49.8 Tumor Marker History Latest Ref Rng & Units 01/10/2023 09:26 02/07/2023 13:39 03/07/2023 09:23 04/04/2023 14:32 Tumor Markers Chromogranin A <93 ng/mL 5900 303 [id number] 1687 RADIOGRAPHIC/DIAGNOSTIC REVIEW: CT chest abdomen pelvis with contrast 03/01/2023 [...] trial with dose 20mg daily. - She denies any new complaints today and is overall tolerating cabozantinib well. She continues toendorse watery eyes and periorbital swelling, but not worse from prior. - We reviewed her labs today which are noted above, notable for stable Cr (1.22), phos 1.9, stable anemia and thrombocytopenia, ANC 2.5. - She was noted to have isolated grade 2 hypertension (143/83) today, asymptomatic. - Chromogranin A still pending. - We will plan to proceed with cycle 23 day 1 of CABINET study, will continue [...] 17 today. 6. Renal function - creatinine 1.22 - follows with Nephrology 7. Right TM perforation - Follow up with ENT, s/p surgery. 8. Hyperparathyroidism - Calcium 10.3 - may be secondary to CKD, denosumab use. - On vit d supplementation. - nephrology following. 9. Eye disorder, grade 1 - Not a reported side effect of cabozantinib, appears unrelated at this time. - F/u Ophthalmology as needed My total encounter time on 05/03/2023 was 35 minutes which was spent in [...] results Date of cancer disease status assessment: 02/07/23 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) H/O actinic keratosis Neuroendocrine tumor Cancer Disease Assessment for mCODE Disease status: stable Reason for disease status: imaging Date of cancer disease status assessment: 07/12/22 Cancer Treatment Plan Change for ICARE data: No change in treatment plan documented in this encounter Plan of Treatment Not on file documented as of this encounter Results * (ABNORMAL) Phosphorus (05/28/2023 11:15 AM SCHEDULE CHECKER) Pathologist [facility] Phosphorus, pl 2.1(L) 2.3 - 4.5 mg/dL [facility] Comment:Testing performed by : [address] [address] Blood 05/28/2023 11:1 5 AM SCHEDULE CHECKER 05/28/2023 11:17 AM SCHEDULE CHECKER us Eren Cr MD LAB BLOOD ORDERABLES Final Re sult [facility] Department [place] [address] * Magnesium (05/28/2023 11:15 AM SCHEDULE CHECKER) [facility] Magnesium 1.6 1.4 - 2.5 mg/dL [facility] Comment:Testing performed by : [address], [place] [address] Blood 05/28/2023 11:1 5 AM SCHEDULE CHECKER 05/28/2023 11:17 AM SCHEDULE CHECKER Eren Cr MD LAB BLOOD ORDERABLES Final Re sult [facility] Department [place] [address] * (ABNORMAL) Comprehensive metabolic panel (05/28/2023 11:15 AM SCHEDULE CHECKER) Sodium 138 135 - 145 mmol/L [facility] Comment:Testing performed by : [address] [address] Potassium, pl 4.0 3.3 - 4.9 mmol/L [facility] Chloride 108 97 - 110 mmol/L [facility] CO2 24 22 - 32 mmol/L [facility] Anion gap 6 2 - 15 mmol/L [facility] BUN 12 6 - 25 mg/dL [facility] Creatinine 1.19(H) 0.60 - 1.10 mg/dL [facility] Glucose 66(L) 70 - 199 mg/dL [facility] Comment: Interpretive Data Fasting glucose [...] 2022. Calcium 9.5 8.5 - 10.3 mg/dL [facility] Bilirubin, total 0.6 0.1 - 1.2 mg/dL [facility] Protein, pl 6.2(L) 6.5 - 8.5 g/dL [facility] Albumin 4.0 3.5 - 5.0 g/dL [facility] Alk phos 63 40 - 130 Units/L [facility] ALT 23 7 - 45 Units/L [facility] AST 36 10 - 45 Units/L [facility] Blood 05/28/2023 11:1 5 AM SCHEDULE CHECKER 05/28/2023 11:17 AM SCHEDULE CHECKER Eren Cr MD LAB BLOOD ORDERABLES Final Re sult [facility] Department [place] [address] * (ABNORMAL) CBC with auto differential (05/28/2023 11:15 AM SCHEDULE CHECKER) [facility] WBC 3.6(L) 3.8 - 9.9 K/cumm [facility] Comment:Testing performed by : [address] [address] Hgb 11.3(L) 11.9 - 15.5 g/dL [facility] Comment: Testing performed by: [address] [address] Interpretive Data A reference range for this assay has not been established for patients with an unknown legal sex. Please refer to the laboratory test catalog for established sex-specific reference intervals. Current interpretive data was last revised on 2023. Hct 34.5(L) 35.6 - 45.5 % [facility] Comment: Testing performed by: [address] [address] Interpretive Data A reference range for this assay has not been established for patients with an unknown legal sex. Please refer to the laboratory test catalog for established sex-specific reference intervals. Current interpretive data was last revised on 2023. Plt 94(L) 150 - 400 K/cumm [facility] Comment:Testing performed by : [address] [address] MPV 11.0 9.1 - 12.3 fL [facility] RBC 3.51(L) 3.90 - 5.20 M/cumm [facility] Comment: Interpretive Data A reference range for this assay has not been established for patients with an unknown legal sex. Please refer to the laboratory test catalog for established sex-specific reference intervals. Current interpretive data was last revised on 2023. MCV 98.3(H) 81.3 - 96.4 fL [facility] MCH 32.2 27.1 - 33.3 pg [facility] MCHC 32.8 32.3 - 35.7 g/dL [facility] RDW CV 14.4 11.1 - 14.9 % [facility] RDW SD 52.1(H) 35.7 - 48.1 fL [facility] NRBC abs 0.00 0.00 - 0.01 K/cumm [facility] Blood 05/28/2023 11:1 5 AM SCHEDULE CHECKER 05/28/2023 11:17 AM SCHEDULE CHECKER us Eren Cr MD LAB BLOOD ORDERABLES Final Re sult [facility] Department [place] [address] * CT chest abdomen pelvis with contrast (05/24/2023 3:47 PM SCHEDULE CHECKER) Anatomical Region Laterality Modality Body N/A Computed Tomogra phy 05/24/2023 4:18 PM SCHEDULE CHECKER Impressions 05/24/2023 4:18 PM SCHEDULE CHECKER 1. ??No significant change in hepatic and peritoneal metastases. 2. ??Stable right supraclavicular lymph node. 3. ??No evidence of disease progression. Electronically signed by: Waylon Robin MD Narrative 05/24/2023 4:18 PM SCHEDULE CHECKER EXAMINATION: ??Computed tomography of the chest, abdomen [...] Malignant neoplasm metastatic to liver (HCC)- Primary 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) [...] rst Ordered Date ONCBCN CLINIC APPOINTMENT REQUEST 3 023 05/02/2023 [facility] LAB APPOINTMENT 1 05/28/2023 ON[facility]N TAKE HOME STUDY DRUG APPT 1 05/28/20 23 documented in this encounter Care Teams Patrol Lady Relationship Specialty Start Date End Date Julio César Briseno MD PCP - General 10/01/16 Eren Cr MD Referring Physician Medical Oncology 11/25/18 Yohana Bowen MD Radiation Oncologist Radiation Oncology 11/25/18 Alejo Mi MD [address] [place] [address] Referring Physician Nephrology 03/07/23 documented as of this encounter
--- OUTSIDE RECORDS SUMMARY | 2024-06-25 22:11 | XMS_ITS | Encounter Summary ---
Author Organization 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 Gender Identity Not on file Sexual Orientation Straight 02/19/2021 9: 29 AM CDT Occupation Industry Job Start Date Job End Date retired Not on file Not on file Not on file documented as of this encounter Last Filed Vital Signs Vital Sign Reading Time Taken Comments Blood Pressure 122/70 04/10/2023 12:25 PM CDT Pulse 86 04/10/2023 12:25 PM CDT Temperature 36.4 ??C (97.5 ??F) 04/10/2023 12:25 PM C DT Respiratory Rate 16 04/10/2023 12:25 PM CDT Oxygen Saturation 97% 04/10/2023 12:25 PM CDT Inhaled Oxygen Concentration - - Weight - - Height - - Body Mass Index - - documented in this encounter Miscellaneous Notes * Home Health Plan for Next Visit - Willem Sung RN - 04/10/2023 12:14 PM CDT Reason for today's visit: Assessment, Port access, IV fluids. Discuss plan of care with patient. Discharge planning ongoing. Plan for next visit: Assessment, Port access documented in this encounter Plan of Treatment Not on file documented as of this encounter Visit Diagnoses Not on filedocumented in this encounter Administered Medications Inactive Administered Medications - up to 3 most recent administrations Medication Order MAR Action Action Date Dose Rate Site 0.9 % sodium chloride (INV-BJ sodium chloride 0.9%) injection 10 mL, intravenous, Weekly, First dose on 04/14/23 at 2015, On saturday, Indications: line careIndications:line care Given 04/10/2023 12:30 PM CDT 10 mL sodium chloride 0.9 % solution 1,000 mL, intravenous, Weekly, First dose on 04/14/23 at 2015, Patient to infuse 1000mL of Normal Saline via CADD Coreas pump set at 300mL/Hr once weekly.- Saturday, Indications: hydrationIndications:hydration Given 04/10/2023 12:30 PM CDT 1,000 mL documented in this encounter Home Health Visit - Care Plan Visit Details Visit Type -SN Home Visit Discipline -Retirement Problems Problem Description Start Date Status Goals Interventions Safety concerns Disciplines: Retirement Safety needs related to infusion administration 11/14/2022 Active - 1 problem intervention scheduled/documen omar in this visit Learning/Teachin g Needs - IV Therapy Disciplines: Retirement Teaching and learning needs for performing home IV therapy 11/14/2022 Active - 6 problem interventions scheduled/documen omar in this visit Monitor patient's vital signs every home health visit Disciplines: SN, PT, OT, ANALOG CIRCUIT DESIGNER, CERTIFIED PHYSICAL THERAPIST ASSISTANT, Skilled Disciplines Monitor patient's vital signs every [...] visit during episode of care Description: Home ambulance attendant to measure vital signs during every home [...] MD and infusion service Problem:Safety concerns Scheduled SN instructed patient on how to manage breaks in line, signs/symptoms of complications, who to contact for complications and how to contact the nurse, MD and infusion service. Instruct on IV supplies Description: Instruct patient/caregiver in how to gather supplies, how to restock IV supplies in the home, prepare supplies, administer IV medication and disconnect IV medication, inspecting solution and supplies before infusing, and waste disposal. Problem:Learning/Teac soco Needs - IV Therapy Completed SN instructed patient in how to gather supplies, how to [...] Needs - IV Therapy Completed SN instructed patient in strategies to prevent infection. Instruct patient/caregiver on how to recognize signs and symptoms of infection and when to notify HH nurse and/or physician. IV Administration Description: Skilled Nurse to instruct patient/caregiver on how to properly administer medication saline and heparin. Skilled Nurse to instruct patient/caregiver to administer IV medication as ordered including saline and heparin flushes. Reason for Therapy: Iv hydration. Problem:Learning/Teac soco Needs - IV Therapy Completed SN instructed patient/caregiver on how to properly administer medication saline and heparin. SN instructed patient/caregiver to administer IV medication as ordered including saline and heparin flushes. Reason for Therapy: Iv hydration. IV Access Care/Maintenance Description: Skilled Nurse to [...] - IV Therapy Completed Port accessed without problems and IV fluids infusing. Instruct on IV flush Description: Instruct patient/caregiver in how to perform flushing of IV line according to MD orders or protocol. Problem:Learning/Teac soco Needs - IV Therapy Completed SN instructed patient in how to perform flushing of IV line according to MD orders or protocol. Dressing change Description: Skilled Nurse to instruct [...] Port-a-cath Problem:Learning/Teac soco Needs - IV Therapy Scheduled Monitor Vital Signs Description: Monitor blood pressure, pulse, oxygen saturation, respirations, and temperature. Problem:Monitor patient's vital signs every home health visit Goal:Measure vital signs during every home health visit during episode of care Completed Patients VSS, afebrile and with no C/O pain or problems. Educate Family on Infection Prevention Description: Instructed [...] use of safety precautions Completed SN instructed patient in methods to prevent. Assess safety Description: Assess patient safety Problem:Safety concerns Goal:Demonstrate use of safety precautions Completed Patients home is safe and clean with safe storage for all supplies and medications and with no safety risk noted. documented in this encounter Care Teams Kiln Feeder Relationship Specialty Start Date End Date Julio César Briseno MD PCP - General 10/01/16 Eren Cr MD Referring Physician Medical Oncology 11/25/18 Yohana Bowen MD Radiation Oncologist Radiation Oncology 11/25/18 Alejo Mi MD [id number] [place] [address] Referring Physician Nephrology 03/07/23 documented as of this encounter
--- OUTSIDE RECORDS SUMMARY | 2024-06-25 22:11 | XMS_ITS | Encounter Summary ---
Author Organization [facility] Healthcare Address [address] [place] [address] Care Team Providers Care Precision Assembler Name Role Phone Julio César Briseno MD Primary Care Provider [phone] Eren Cr MD Unavailable [phone] Yohana Bowen MD Unavailable Alejo Mi MD Unavailable [phone] Encounter Details Date Type Department Care Team (Latest Contact Info) Description 05/02/2023 2:08 PM CDT - 05/02/2023 11:59 PM CDT Hospital Encounter [facility] [address] [place] [id number] Neuroendocrine carcinoma (HCC); Malignant neoplasm metastatic to liver (HCC); Neuro-endocrine carcinoma (HCC); Hypothyroidism, unspecified type; Hypothyroidism due to drugs Discharge Disposition: Discharge to home or self [...] file 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 11/23/2020 octreotide (SandoSTATIN) 100 mcg/mL injection Inject 1 mL (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) under the skin every 30 (thirty) days Last dose 11/15/22 ostomy supplies misc Patient has colostomy and needs Cavilon 3M skin barrier film to manage. 20 each 6 09/21/2019 prochlorperazine (COMPAZINE) 10 mg tabletIndications:C ancer Chemotherapy-Induce d Nausea and Vomiting Take 1 tablet (10 mg total) by mouth every 6 (six) hours as needed for nausea 60 tablet 3 03/23/2022 simvastatin (ZOCOR) 20 mg tablet Take 1 tablet (20 mg total) by mouth nightly 0.9 % sodium chloride ([facility] sodium chloride 0.9%) injectionIndication s:line care Infuse 10 mL into a venous catheter once a week On saturday06/20/20 24 amLODIPine (NORVASC) 5 mg tabletIndications:h ypertension Take 0.5 tablets (2.5 mg total) by mouth nightly 07/27/2022 06/11/20 23 ascorbic acid, vitamin C, 500 mg capsuleIndications: supplement Take 1 tablet by mouth sales support consultant before breakfast 07/04/2016 06/20/20 24 ciprofloxacin-dexAM ETHasone (CIPRODEX) otic suspension Administer 4 drops into the right ear 2 (two) times a day Begin 1 week post op 7.5 mL 3 02/05/2023 06/11/20 23 clotrimazole-betame thasone (LOTRISONE) cream Apply 1 Application topically daily as needed (rash) 06/20/20 24 coenzyme [id number] E 100-5 mg-unit capsuleIndications: supplement Take 1 tablet by mouth sales support consultant before breakfast 06/20/20 24 diphenoxylate-atrop ine (LOMOTIL) 2.5-0.025 mg per tabletIndications:C hemotherapy-Induced Diarrhea Take 1 tablet by mouth 4 (four) times a day as needed for diarrhea 90 tablet 02/14/2021 06/20/[address] (CYMBALTA) 30 mg capsule Take 1 capsule (30 mg total) by mouth daily 30 capsule 2 04/24/2019 01/14/20 24 fluticasone propionate (FLONASE) 50 mcg/actuation nasal sprayIndications:Al lergic Rhinitis Administer 2 sprays into each nostril daily as needed for rhinitis or allergies 06/20/20 24 heparin 100 unit/mL solutionIndications :Maintain Patency of Indwelling Vascular Catheter Infuse 5 mL (500 Units total) into a venous catheter once a week Fluids every -Heparin to flush 06/20/20 24 HYDROcodone-acetami nophen ([place]) 5-325 mg per tabletIndications:P ain Take 1 tablet by mouth every 6 (six) hours as needed for pain 15 tablet 02/05/2023 05/24/20 23 INV-[facility] cabozantinib/placeb o (/[id number]) 20 mg tabletIndications:c ancer study Take 1 tablet (20 mg total) by mouth nightly Take on an empty stomach (no food for 2 hours before and 1 hour after each dose).?? Avoid [place]'s Wort, grapefruit products and [place] oranges while on treatment. 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 Take 1 tablet (88 mcg total) by mouth sales support consultant before breakfast 90 tablet 1 10/12/2022 09/12/19 24 LORazepam (ATIVAN) 0.5 mg tabletIndications:M RI scan Take 1 tablet 1 hour prior to MRI exam, may repeat dose if needed 15 minutes prior to MRI 2 tablet 08/21/2021 06/20/20 24 montelukast (SINGULAIR) 10 mg tablet Take 1 tablet (10 mg total) by mouth as needed (allergies) 06/14/20 24 olmesartan-hydrochl orothiazide (BENICAR HCT) 20-12.5 mg per tabletIndications:h ypertension Take 1 tablet by mouth every morning 05/14/2019 05/21/20 24 ondansetron (ZOFRAN) 8 mg tabletIndications:P revention of Radiation-Induced Nausea and Vomiting Take 1 tablet (8 mg total) by mouth every 8 (eight) hours as needed for nausea or vomiting 30 tablet 3 08/17/2022 05/28/20 23 ondansetron ODT (ZOFRAN-ODT) 8 mg disintegrating tabletIndications:C ancer Chemotherapy-Induce d Nausea and Vomiting Take 1 tablet (8 mg total) by mouth every 8 (eight) hours as needed for nausea or vomiting 30 tablet 3 10/18/2022 05/24/20 23 sodium chloride 0.9 % solutionIndications :hydration Infuse 1,000 mL into a venous catheter once a week Patient to infuse 1000mL of Normal Saline via CADD Coreas pump set at 300mL/Hr once weekly.- Saturday09/14/2022 06/20/20 triamcinolone (KENALOG) 0.1 % ointment Apply to itchy rash on hands twice daily until improved 454 g 1 05/06/2020 05/21/20 24 documented as of this encounter Discharge Disposition Disposition Code Departure Means Destination Discharge to home or self care documented in this encounter Plan of Treatment Scheduled Orders Name Type Priority Associated Diagnoses Orde r Schedule T4, free Lab Routine Hypothyroidism, unspecified type Once for 1 Occurrences starting 05/02/2023 until 05/02/2023 TSH Lab Routine Hypothyroidism, unspecified type Once for 1 Occurrences starting 05/02/2023 until 05/02/2023 documented as of this encounter Procedures Procedure Name Priority Date/Time Associated Diagnosis Comments EGFR STAT 05/02/2023 12:12 PM CDT 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) DIFFERENTIAL AUTO Routine 05/02/2023 12: 12 PM CDT 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) CHROMOGRANIN A Routine 05/02/2023 12:12 PM CDT 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) CBC WITH AUTO DIFFERENTIAL Routine 05/02/2023 12:12 PM CDT 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) VITAMIN D 25 HYDROXY Routine 05/02/2023 12:12 PM CDT 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) TSH Routine 05/02/2023 12:12 PM CDT Malignant neoplasm metastatic to liver (HCC) Hypothyroidism due to drugs T4, FREE Routine 05/02/2023 12:12 PM CDT Malignant neoplasm metastatic to liver (HCC) Hypothyroidism due to drugs PHOSPHORUS Routine 05/02/2023 12:12 PM CDT 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) MAGNESIUM STAT 05/02/2023 12:12 PM CDT Neuro-endocrine carcinoma (HCC) LIPID PANEL Routine 05/02/2023 12:12 PM CDT 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) COMPREHENSIVE METABOLIC PANEL STAT 05/02/2023 12:12 PM CDT 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) PROTEIN / CREATININE RATIO, URINE, RANDOM STAT 05/02/2023 12:00 PM CDT Neuro-endocrine carcinoma (HCC) documented in this encounter Results * (ABNORMAL) eGFR (05/02/2023 12:12 PM CDT) eGFR 47(L) 90 - 130 mL/min/1. 73 m2 [facility] Comment: Interpretive [...] interpretive data was last reviewed 2021. Blood 05/02/2023 12:1 2 PM CDT 05/02/2023 12:12 PM CDT Eren Cr MD LAB BLOOD ORDERABLES Final Re sult [facility] Department [place] [address] * (ABNORMAL) Differential, auto (05/02/2023 12:12 PM CDT) Neutrophil abs 2.5 1.7 - 6.5 K/cumm [facility] Comment:Testing performed by : [facility], [address] [place] [id number] Imm gran abs 0.0 0.0 - 0.1 K/cumm [facility] Lymphocyte abs 0.3(L) 0.8 - 3.3 K/cumm [facility] Monocyte abs 0.3 0.2 - 0.8 K/cumm [facility] Eosinophil abs 0.2 0.0 - 0.5 K/cumm [facility] Basophil abs 0.0 0.0 - 0.1 K/cumm [facility] Neutrophil pct 74.2 % [facility] Comment: Consistent with previous result Interpretive Data Percent cell count reference ranges are not reported, since discordance with absolute values may lead to misinterpretation of CBC data. Current Interpretive Data was last revised on 2017. Imm gran pct 0.3 % [facility] Comment: Interpretive Data Percent cell count reference ranges are not reported, since discordance with absolute values may lead to misinterpretation of CBC data. Current Interpretive Data was last revised on 2017. Lymphocyte pct 9.6 % [facility] Comment: Interpretive Data Percent cell count reference ranges are not reported, since discordance with absolute values may lead to misinterpretation of CBC data. Current Interpretive Data was last revised on 2017. Monocyte pct 10.2 % [facility] Comment: Interpretive Data Percent cell count reference ranges are not reported, since discordance with absolute values may lead to misinterpretation of CBC data. Current Interpretive Data was last revised on 2017. Eosinophil pct 4.8 % [facility] Comment: Interpretive Data Percent cell count reference ranges are not reported, since discordance with absolute values may lead to misinterpretation of CBC data. Current Interpretive Data was last revised on 2017. Basophil pct 0.9 % [facility] Comment: Interpretive Data Percent cell count reference ranges are not reported, since discordance with absolute values may lead to misinterpretation of CBC data. Current Interpretive Data was last revised on 2017. Blood 05/02/2023 12:1 2 PM CDT 05/02/2023 12:12 PM CDT Eren Cr MD LAB BLOOD ORDERABLES Final Re sult Performing Organization Address [facility] Co de Phone Number [facility] [place] [address] * TSH (05/02/2023 12:12 PM CDT) Thyroid Stimulating Hormone 1.28 0.30 - 4.20 mcIUnit/mL [facility] Blood 05/02/2023 12:1 2 PM CDT 05/02/2023 2:06 PM CDT Result [facility] Eren Cr MD LAB BLOOD ORDERABLES Final Re sult Performing Organization Address [facility] Co de Phone Number [facility] [place] [address] * T4, free (05/02/2023 12:12 PM CDT) Free T4 1.41 0.90 - 1.70 ng/dL [facility] Blood 05/02/2023 12:1 2 PM CDT 05/02/2023 2:06 PM CDT Eren Cr MD LAB BLOOD ORDERABLES Final Re sult Performing Organization Address City/[facility] Co de Phone Number [facility] [place] [address] * Magnesium (05/02/2023 12:12 PM CDT) Magnesium 1.4 1.4 - 2.5 mg/dL [facility] Comment:Testing performed by : [facility], [address] [place] [address] Blood 05/02/2023 12:1 2 PM CDT 05/02/2023 12:12 PM CDT us Eren Cr MD LAB BLOOD ORDERABLES Final Re sult [facility] Department [place] [address] * Lipid panel (05/02/2023 12:12 PM CDT) [...] revised on 2018. HDL 60 >=40 mg/dL [facility] Comment: Interpretive Data Ages < or [...] on 2018. LDL, calculated 63 <=129 mg/dL [facility] Comment: Interpretive Data Ages < or [...] revised on 2018. Non-HDL Cholesterol 89 mg/dL [facility] Comment: Interpretive Data Ages < [...] last revised on 2018. Chol/HDL ratio 2 [facility] Blood 05/02/2023 12:1 2 PM CDT 05/02/2023 2:06 PM CDT Eren Cr MD LAB BLOOD ORDERABLES Final Re sult Performing Organization Address City/[facility]/ZIP Co de Phone Number [facility] Department of Laboratories [place], [place] [id number] * (ABNORMAL) Phosphorus (05/02/2023 12:12 PM CDT) Phosphorus, pl 1.9(L) 2.3 - 4.5 mg/dL [facility] Comment:Testing performed by : [facility], [address] [place] [address] Blood 05/02/2023 12:1 2 PM CDT 05/02/2023 12:12 PM CDT Eren Cr MD LAB BLOOD ORDERABLES Final Re sult Performing Organization Address City/[facility]/ZIP Co de Phone Number [facility] Department [place] [address] * (ABNORMAL) Vitamin D 25 hydroxy (05/02/2023 12:12 PM CDT) Pathologist [facility] Vitamin D 25-OH 17(L) 30 - 80 ng/mL [facility] Blood 05/02/2023 12:1 2 PM CDT 05/02/2023 2:06 PM CDT Eren Cr MD LAB BLOOD ORDERABLES Final Re sult [facility] Department [place] [address] * (ABNORMAL) CBC with auto differential (05/02/2023 12:12 PM CDT) [facility] WBC 3.3(L) 3.8 - 9.9 K/cumm [facility] Comment:Testing performed by : [address] [address] Hgb 10.9(L) 11.9 - 15.5 g/dL [facility] Comment: Testing performed by: [address] [address] Interpretive Data A reference range for this assay has not been established for patients with an unknown legal sex. Please refer to the laboratory test catalog for established sex-specific reference intervals. Current interpretive data was last revised on 2023. Hct 32.8(L) 35.6 - 45.5 % [facility] Comment: Testing performed by: [address] [address] Interpretive Data A reference range for this assay has not been established for patients with an unknown legal sex. Please refer to the laboratory test catalog for established sex-specific reference intervals. Current interpretive data was last revised on 2023. Plt 90(L) 150 - 400 K/cumm [facility] Comment:Testing performed by : [address] [address] MPV 10.9 9.1 - 12.3 fL [facility] RBC 3.33(L) 3.90 - 5.20 M/cumm [facility] Comment: Interpretive Data A reference range for this assay has not been established for patients with an unknown legal sex. Please refer to the laboratory test catalog for established sex-specific reference intervals. Current interpretive data was last revised on 2023. MCV 98.5(H) 81.3 - 96.4 fL [facility] MCH 32.7 27.1 - 33.3 pg [facility] MCHC 33.2 32.3 - 35.7 g/dL [facility] RDW CV 14.1 11.1 - 14.9 % [facility] RDW SD 50.5(H) 35.7 - 48.1 fL [facility] NRBC abs 0.00 0.00 - 0.01 K/cumm [facility] Blood 05/02/2023 12:1 2 PM CDT 05/02/2023 12:12 PM CDT Eren Cr MD LAB BLOOD ORDERABLES Final Re sult [facility] Department [place] [address] * (ABNORMAL) Comprehensive metabolic panel (05/02/2023 12:12 PM CDT) Sodium 138 135 - 145 mmol/L [facility] Comment:Testing performed by : [facility], [address] [place] [address] Potassium, pl 4.2 3.3 - 4.9 mmol/L [facility] Chloride 108 97 - 110 mmol/L [facility] CO2 25 22 - 32 mmol/L [facility] Anion gap 5 2 - 15 mmol/L [facility] BUN 16 6 - 25 mg/dL [facility] Creatinine 1.22(H) 0.60 - 1.10 mg/dL [facility] Glucose 121 70 - 199 mg/dL [facility] Comment: Interpretive Data Fasting glucose [...] 2022. Calcium 9.7 8.5 - 10.3 mg/dL [facility] Bilirubin, total 0.6 0.1 - 1.2 mg/dL [facility] Protein, pl 6.1(L) 6.5 - 8.5 g/dL [facility] Albumin 3.9 3.5 - 5.0 g/dL [facility] Alk phos 58 40 - 130 Units/L [facility] ALT 22 7 - 45 Units/L [facility] AST 32 10 - 45 Units/L [facility] Blood 05/02/2023 12:1 2 PM CDT 05/02/2023 12:12 PM CDT us Eren Cr MD LAB BLOOD ORDERABLES Final Re sult [facility] Department [place] [address] * (ABNORMAL) Chromogranin A (05/02/2023 12:12 PM CDT) Chromogranin A 1736(H) <93 ng/mL [facility] Comment: Impaired renal or hepatic function or treatment with proton pump inhibitors may result in artifactual elevations of Chromogranin A. ADDITIONAL INFORMATION This test was developed and its performance characteristics determined by [facility] in a manner consistent with CLIA [...] a homogeneous time-resolved immunofluorescent assay manufactured by [employer] and performed on the [employer] Kryptor Compact Plus. ? Values obtained with different assay methods or kits may be different and cannot be used interchangeably. ? Test results cannot be interpreted as absolute evidence for the presence or absence of malignant disease. Test Performed by: [facility] [address] [place] [address] Loan Review Analyst: Immanuel Novak M.D. Ph.D.; CLIA# [id number] Blood 05/02/2023 12:1 2 PM CDT 05/02/2023 2:10 PM CDT Eren Cr MD LAB BLOOD ORDERABLES Final Re sult Performing Organization Address [facility] de Phone Number [facility] [place] [address] * Protein / creatinine ratio, urine, random (05/02/2023 12:00 PM CDT) Protein, ur, quant 10.6 mg/dL [facility] Comment: Interpretive Data No reference range established. Current interpretive data was last revised 2018. Creatinine Ur 143.1 mg/dL [facility] Comment: Interpretive Data No reference range established. Current interpretive data was last revised 2018. Protein/creatinin e ratio 74.1 0.0 - 180.0 mg/g CR [facility] Urine 05/02/2023 12:0 0 PM CDT 05/02/2023 2:06 PM CDT Eren Cr MD LAB URINE ORDERABLES Final Re sult Performing Organization Address [facility] Co de Phone Number [facility] Department [place] [address] documented in this encounter Visit Diagnoses Diagnosis Neuroendocrine carcinoma (HCC) Other malignant neoplasm of unspecified site Malignant neoplasm metastatic to liver (HCC) Neuro-endocrine carcinoma (HCC) Other malignant neoplasm of unspecified site Hypothyroidism, unspecified type Hypothyroidism due to drugs Other iatrogenic hypothyroidism documented in this encounter Care Teams Precision Assembler Relationship Specialty Start Date End Date Julio César Briseno MD PCP - General 10/01/16 Eren Cr MD Referring Physician Medical Oncology 11/25/18 Yohana Bowen MD Radiation Oncologist Radiation Oncology 11/25/18 Alejo Mi MD [address] [place] [address] Referring Physician Nephrology 03/07/23 documented as of this encounter
--- OUTSIDE RECORDS SUMMARY | 2024-06-25 22:11 | XMS_ITS | Encounter Summary ---
Author Organization [facility] Address [address] [place] [address] Phone Care Team Providers Care Automotive Glass Installer Name Role Phone Julio César Briseno MD Primary Care Provider [phone] Eren Cr MD Unavailable [phone] Yohana Bowen MD Unavailable [place] MD Unavailable [phone] Reason for Visit * Episode Based Medications (Routine) - Closed Specialty Diagnoses / Procedures Referred By Contac t Referred To Contact Diagnoses Neuro-endocrine carcinoma (HCC) Procedures study [id number] phase III cabozantinib Eren Cr MD [address] [place] [address] Phone: tel: fax: [facility] [address] 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 Gender Identity Not on file Sexual Orientation [...] Ordered Date First Ordered Date [facility] cabozantinib (/[id number]) tablet 20 mg 1 04/04/2023 Nursing Count Last Ordered Date First Orde red Date ONCBCN CLINICAL PHARMACIST REVIEW 1 023 ONCBCN PROVIDER COMMUNICATION 10 04/04/20 23 ONCBCN STUDY COMMUNICATION 1 04/04/2023 ONCBCN TREATMENT PARAMETERS 1 04/04/2023 Appointment Requests Count Last Ordered Date Fi rst Ordered Date ONCBCN TAKE HOME STUDY DRUG APPT 1 04/04/20 documented in this encounter Care Teams Automotive Glass Installer Relationship Specialty Start Date End Date Julio César Briseno MD PCP - General 10/01/16 Eren Cr MD Referring Physician Medical Oncology 11/25/18 Yohana Bowen MD Radiation Oncologist Radiation Oncology 11/25/18 Alejo Mi MD [address] [place] [address] Referring Physician Nephrology 03/07/23 documented as of this encounter
--- OUTSIDE RECORDS SUMMARY | 2024-06-25 22:11 | XMS_ITS | Encounter Summary ---
Author Organization [facility] Address [address] [place] [address] Phone Care Team Providers Care Community Worker Name Role Phone Julio César Briseno MD Primary Care Provider [phone] Eren Cr MD Unavailable [phone] Yohana Bowen MD Unavailable [place] MD Unavailable Reason for Visit * Episode Based Medications (Routine) - Closed Specialty Diagnoses / Procedures Referred By Contac t Referred To Contact Diagnoses Neuro-endocrine carcinoma (HCC) Procedures study [id number] phase III cabozantinib Eren Cr MD [address] [place] [address] Phone: tel: fax: [facility] at [facility] and [facility] [address] [facility] 7th [place] [address] Phone: tel: Referral ID Status Reason Start Date Expiration Date Visits Re quested Visits Authorized [id number] Closed 06/21/2021 06/26/2024 1 99 Encounter Details Date Type Department Care Team (Latest Contact Info) Description 04/04/2023 2:30 PM CDT Clinical Support [facility] Oncology [address] [place] [address] Neuro-endocrine carcinoma (HCC) Social History Tobacco Use [...] on file 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
--- OUTSIDE RECORDS SUMMARY | 2024-06-25 22:11 | XMS_ITS | Encounter Summary ---
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) Procedures ME OCTREOTIDE INJECTION, DEPOT Octreotide 28 Day Cycles - Carcinoid Eren Cr MD [address] [facility] [address] [place] [address] Phone: tel: fax: [facility] [address] [address] Phone: tel: fax: Referral ID Status Reason Start Date Expiration Date V isits Requested Visits Authorized [id number] Authorized 11/28/2017 02/05/2025 1 150 Encounter Details Date Type Department Care Team (Late st Contact Info) Description 04/04/2023 3:45 PM CDT Infusion [facility] Oncology [address] [place] [address] 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 Dx); Neuroendocrine carcinoma (HCC); Neuro-endocrine carcinoma (HCC); 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 female who presents for the following injection: Xgeva and Octreotide. Nursing Assessment Nursing Assessment Appetite: Fair Diarrhea: Yes Constipation: No Existing Patients: Any falls since your last visit?: No Fatigue: Constant Mouth Sores: No Nausea/Vomiting: No Neurological symptoms: No Peripheral Neuropathy: No Shortness of Breath?: Yes Swelling: No Additional Notes: Study prescription given to patient. BP: 151/75 Temp: 36.3 ??C (97.3 ??F) Temp src: Temporal Pulse: 71 Resp: 17 SpO2: 99 % Weight: 78.1 kg (172 lb 3.2 oz) Patient: met treatment parameters [...] 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) Nausea Nausea alone documented in this encounter Administered Medications Inactive Administered Medications - up to 3 most recent administrations Medication Order MAR Action Action Date Dose Rate Site denosumab (XGEVA) subcutaneous syringe 120 mg 120 mg, subcutaneous, Once, On [facility] 04/04/23 at 1630, For 1 dose, Calcium level should be greater than 8 mg/dl Administer injection in upper arm, abdomen or upper thigh Refrigerate. Allow to stand 15 to 30 mins prior to useIndications:Neuro-endoc rine carcinoma (HCC),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) Given 04/04/2023 3:54 PM CDT 120 mg Right Lower Abdomen octreotide LAR (SandoSTATIN LAR) extended release intramuscular injection 30 mg 30 mg, intramuscular, Once, On [facility] 04/04/23 at 1600, For 1 dose, Refrigerate. For IM intragluteal administration only- alternate gluteal sites. 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) Given 04/04/2023 3:54 PM CDT 30 mg Left Dorsogluteal/Butto ck documented in this encounter Orders Medications Ordered That Brett ht Not Have Been Administered Count Last Ordered Date First Ordered Date prochlorperazine (COMPAZINE) injection 5 mg 1 04/04/2023 Nursing Count Last Ordered Date First Orde red Date ONCBCN NURSING COMMUNICATION [id number] 2 04/04 ONCBCN NURSING COMMUNICATION [id number] 1 0 04/04/2023 PHYSICIAN COMMUNICATION ORDER 1 04/04/2023 Appointment Requests Count Last Ordered Date Fi rst Ordered Date ONCBCN INJECTION APPOINTMENT REQUEST 1 03/09 documented in this encounter Care Teams Production Supervisor Trainee Relationship Specialty Start Date End Date Julio César Briseno MD PCP - General 10/01/16 Eren Cr MD Referring Physician Medical Oncology 11/25/18 Yohana Bowen MD Radiation Oncologist Radiation Oncology 11/25/18 Alejo Mi MD [address] [address] Referring Physician Nephrology 03/07/23 documented as of this encounter
--- OUTSIDE RECORDS SUMMARY | 2024-06-25 22:11 | XMS_ITS | Encounter Summary ---
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 Gender Identity Not on file Sexual [...] by mouth nightly 0.9 % sodium chloride ([facility] sodium chloride 0.9%) injectionIndication s:line care Infuse 10 mL into a venous catheter once a week On saturday06/20/20 24 amLODIPine (NORVASC) 5 mg tabletIndications:h ypertension Take 0.5 tablets (2.5 mg total) by mouth nightly 07/27/2022 06/11/20 23 ascorbic acid, vitamin C, 500 mg capsuleIndications: supplement Take 1 tablet by mouth solderer assembler before breakfast 07/04/2016 06/20/20 24 ciprofloxacin-dexAM ETHasone (CIPRODEX) otic suspension Administer 4 drops into the right ear 2 (two) times a day Begin 1 week post op 7.5 mL 3 02/05/2023 06/11/20 23 clotrimazole-betame thasone (LOTRISONE) cream Apply 1 Application topically daily as needed (rash) 06/20/20 24 coenzyme [id number] E 100-5 mg-unit capsuleIndications: supplement Take 1 tablet by mouth solderer assembler before breakfast 06/20/20 24 diphenoxylate-atrop ine (LOMOTIL) [...] -Heparin to flush 06/20/20 24 HYDROcodone-acetami nophen ([place]) 5-325 mg per tabletIndications:P ain Take 1 tablet by mouth every 6 (six) hours as needed for pain 15 tablet 02/05/2023 05/24/20 23 [id number] cabozantinib/placeb o (/[id number]) 20 mg tabletIndications:c ancer study Take 1 tablet (20 mg total) by mouth nightly Take on an empty stomach (no food for 2 hours before and 1 hour after each dose).?? Avoid Jas's Wort, grapefruit products and [place] oranges while on treatment. 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 Take 1 tablet (88 mcg total) by mouth solderer assembler before breakfast 90 tablet 1 10/12/2022 09/12/19 [...] set at 300mL/Hr once weekly.- Saturday09/14/2022 06/20/20 24 triamcinolone (KENALOG) 0.1 % ointment Apply to [...] Priority Date/Time Associated Diagnosis Comments EGFR STAT 04/04/2023 2:32 PM CDT 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) DIFFERENTIAL AUTO Routine 04/04/2023 2:3 2 PM CDT 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) CHROMOGRANIN A Routine 04/04/2023 2:32 PM CDT 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) CBC WITH AUTO DIFFERENTIAL Routine 04/04/2023 2:32 PM CDT 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) VITAMIN D 25 HYDROXY Routine 04/04/2023 2:32 PM CDT 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) TSH Routine 04/04/2023 2:32 PM CDT Neuro-endocrine carcinoma (HCC) PHOSPHORUS Routine 04/04/2023 2:32 PM CDT 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) MAGNESIUM STAT 04/04/2023 2:32 PM CDT Neuro-endocrine carcinoma (HCC) LIPID PANEL Routine 04/04/2023 2:32 PM CDT 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) COMPREHENSIVE METABOLIC PANEL STAT 04/04/2023 2:32 PM CDT 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 73 [...] interpretive data was last reviewed 2021. Blood 04/04/2023 2:32 PM CDT 04/04/2023 2:32 PM CDT us Eren Cr MD LAB BLOOD ORDERABLES Final Re sult [facility] Department [place] [address] * (ABNORMAL) Differential, auto (04/04/2023 2:32 PM CDT) Pathologist [facility] Neutrophil abs 2.0 1.7 - 6.5 K/cumm [facility] Comment:Testing performed by : [facility], [address] [facility] [address] Imm gran abs 0.0 0.0 - 0.1 K/cumm [facility] Lymphocyte abs 0.4(L) 0.8 - 3.3 K/cumm [facility] Monocyte abs 0.5 0.2 - 0.8 K/cumm [facility] Eosinophil abs 0.2 0.0 - 0.5 K/cumm [facility] Basophil abs 0.0 0.0 - 0.1 K/cumm [facility] Neutrophil pct 65.7 % [facility] Comment: Consistent with previous result Interpretive Data Percent cell count reference ranges are not reported, since discordance with absolute values may lead to misinterpretation of CBC data. Current Interpretive Data was last revised on 2017. Imm gran pct 0.3 % [facility] Comment: Interpretive Data Percent cell count reference ranges are not reported, since discordance with absolute values may lead to misinterpretation of CBC data. Current Interpretive Data was last revised on 2017. Lymphocyte pct 13.4 % [facility] Comment: Interpretive Data Percent cell count reference ranges are not reported, since discordance with absolute values may lead to misinterpretation of CBC data. Current Interpretive Data was last revised on 2017. Monocyte pct 15.0 % [facility] Comment: Interpretive Data Percent cell count reference ranges are not reported, since discordance with absolute values may lead to misinterpretation of CBC data. Current Interpretive Data was last revised on 2017. Eosinophil pct 4.9 % [facility] Comment: Interpretive Data Percent cell count reference ranges are not reported, since discordance with absolute values may lead to misinterpretation of CBC data. Current Interpretive Data was last revised on 2017. Basophil pct 0.7 % [facility] Comment: Interpretive Data Percent cell count reference ranges are not reported, since discordance with absolute values may lead to misinterpretation of CBC data. Current Interpretive Data was last revised on 2017. Blood 04/04/2023 2:32 PM CDT 04/04/2023 2:32 PM CDT Eren Cr MD LAB BLOOD ORDERABLES Final Re sult Performing Organization Address [facility] Co de Phone Number [place], [place] [id number] * Magnesium (04/04/2023 2:32 PM CDT) Magnesium 1.4 1.4 - 2.5 mg/dL [facility] Comment:Testing performed by : [facility], [address] [place] [address] Blood 04/04/2023 2:32 PM CDT 04/04/2023 2:32 PM CDT Eren Cr MD LAB BLOOD ORDERABLES Final Re sult Performing Organization Address [facility] [place] [address] * TSH (04/04/2023 2:32 PM CDT) Thyroid Stimulating Hormone 3.70 0.30 - 4.20 mcIUnit/mL [facility] Blood 04/04/2023 2:32 PM CDT 04/04/2023 6:38 PM CDT us Eren Cr MD LAB BLOOD ORDERABLES Final Re sult Performing Organization Address [facility] [place] [address] * (ABNORMAL) Lipid panel (04/04/2023 2:32 PM CDT) Cholesterol 147 30 - 199 mg/dL [facility] [...] Data was last revised on 2018. Triglycerides 206(H) <=149 mg/dL [facility] Comment: Interpretive Data Ages < or = [...] on 2018. HDL 62 >=40 mg/dL [facility] Comment: Interpretive Data Ages < or = [...] was last revised on 2018. LDL, calculated 44 <=129 mg/dL [facility] Comment: Interpretive Data [...] was last revised on 2018. Non-HDL Cholesterol 85 mg/dL [facility] Comment: Interpretive Data Ages [...] 2018. Chol/HDL ratio 2 [facility] Blood 04/04/2023 2:32 PM CDT 04/04/2023 6:38 PM CDT us Eren Cr MD LAB BLOOD ORDERABLES Final Re sult [facility] Department [place] [address] * Phosphorus (04/04/2023 2:32 PM CDT) [facility] Phosphorus, pl 2.9 2.3 - 4.5 mg/dL [facility] Comment:Testing performed by : [facility], [address] [place] [address] Blood 04/04/2023 2:32 PM CDT 04/04/2023 2:32 PM CDT Eren Cr MD LAB BLOOD ORDERABLES Final Re sult [facility] [place] [address] * (ABNORMAL) Vitamin D 25 hydroxy (04/04/2023 2:32 PM CDT) [facility] Vitamin D 25-OH 17(L) 30 - 80 ng/mL [facility] Blood 04/04/2023 2:32 PM CDT 04/04/2023 6:38 PM CDT Eren Cr MD LAB BLOOD ORDERABLES Final Re sult [facility] [place] [address] * (ABNORMAL) CBC with auto differential (04/04/2023 2:32 PM CDT) [facility] WBC 3.1(L) 3.8 - 9.9 K/cumm [facility] Comment:Testing performed by : [facility], [address] [place] [address] Hgb 10.8(L) 11.9 - 15.5 g/dL [facility] Comment:Testing performed by : [facility], [address] [place] [address] Hct 32.5(L) 35.6 - 45.5 % [facility] Comment:Testing performed by : [facility], [address] [place] [address] Plt 88(L) 150 - 400 K/cumm [facility] Comment:Testing performed by : [address] [address] MPV 10.4 9.1 - 12.3 fL [facility] RBC 3.26(L) 3.90 - 5.20 M/cumm [facility] MCV 99.7(H) 81.3 - 96.4 fL [facility] MCH 33.1 27.1 - 33.3 pg [facility] MCHC 33.2 32.3 - 35.7 g/dL [facility] RDW CV 14.6 11.1 - 14.9 % [facility] RDW SD 52.6(H) 35.7 - 48.1 fL [facility] NRBC abs 0.00 0.00 - 0.01 K/cumm [facility] Blood 04/04/2023 2:32 PM CDT 04/04/2023 2:32 PM CDT Eren Cr MD LAB BLOOD ORDERABLES Final Re sult [facility] Department [place] [address] * (ABNORMAL) Comprehensive metabolic panel (04/04/2023 2:32 PM CDT) [facility] Sodium 139 135 - 145 mmol/L [facility] Comment:Testing performed by : [address] [address] Potassium, pl 4.0 3.3 - 4.9 mmol/L [facility] Chloride 108 97 - 110 mmol/L [facility] CO2 24 22 - 32 mmol/L [facility] Anion gap 7 2 - 15 mmol/L [facility] BUN 16 6 - 25 mg/dL [facility] Creatinine 1.22(H) 0.60 - 1.10 mg/dL [facility] Glucose 106 70 - 199 mg/dL [facility] [...] 2022. Calcium 10.3 8.5 - 10.3 mg/dL [facility] [place] Bilirubin, total 0.5 0.1 - 1.2 mg/dL [facility] Protein, pl 6.2(L) 6.5 - 8.5 g/dL [facility] Albumin 4.0 3.5 - 5.0 g/dL [facility] [place] [facility] Alk phos 61 40 - 130 Units/L [facility] ALT 24 7 - 45 Units/L [facility] AST 33 10 - 45 Units/L [facility] Blood 04/04/2023 2:32 PM CDT 04/04/2023 2:32 PM CDT us Eren Cr MD LAB BLOOD ORDERABLES Final Re sult [facility] Department [place] [address] * (ABNORMAL) Chromogranin A (04/04/2023 2:32 PM CDT) Chromogranin A 1687(H) <93 ng/mL [facility] Comment: Impaired renal or hepatic function or treatment with proton pump inhibitors may result in artifactual elevations of Chromogranin A. ADDITIONAL INFORMATION This test was developed and its performance characteristics determined by [facility] in a manner consistent with [...] a homogeneous time-resolved immunofluorescent assay manufactured by [employer] and performed on the [employer] Kryptor Compact Plus. ? Values obtained with different assay methods or kits may be different and cannot be used interchangeably. ? Test results cannot be interpreted as absolute evidence for the presence or absence of malignant disease. Test Performed by: [facility] [address] [place] [address] Furniture Upholsterer: Immanuel Novak M.D. Ph.D.; CLIA# [id number] Blood 04/04/2023 2:32 PM CDT 04/04/2023 7:20 PM CDT us Eren Cr MD LAB BLOOD ORDERABLES Final Re sult [facility] Department [place] [address] documented in this encounter Visit Diagnoses Diagnosis Neuroendocrine carcinoma (HCC) Other malignant neoplasm of unspecified site Malignant neoplasm metastatic to liver (HCC) Neuro-endocrine carcinoma (HCC) Other malignant neoplasm of unspecified site documented in this encounter Care Teams Hose Inspector And Patcher Relationship Specialty Start Date End Date Julio César Briseno MD PCP - General 10/01/16 Eren Cr MD Referring Physician Medical Oncology 11/25/18 Yohana Bowen MD Radiation Oncologist Radiation Oncology 11/25/18 Alejo Mi MD [address] [facility] [address] [place] [address] Referring Physician Nephrology 03/07/23 documented as of this encounter
--- OUTSIDE RECORDS SUMMARY | 2024-06-25 22:11 | XMS_ITS | Encounter Summary ---
Author Organization [facility] Address [address] [place] [address] Phone Care Team Providers Care Bowling Alley Mechanic Name Role Phone Julio César Briseno MD Primary Care Provider [phone] Eren Cr MD Unavailable [phone] Yohana Bowen MD Unavailable RoscoeAljeo Ramos MD Unavailable [phone] 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) Procedures AL OCTREOTIDE INJECTION, DEPOT Octreotide 28 Day Cycles - Carcinoid Eren Cr MD [address] [facility] [address] [place] [address] Phone: tel: fax: [facility] [address] [address] Phone: tel: fax: Referral ID Status Reason Start Date Expiration Date V isits Requested Visits Authorized [id number] Authorized 11/28/2017 02/05/2025 1 150 Encounter Details Date Type Department Care Team (Latest Contact Info) Description 05/02/2023 11:30 AM CDT Clinical Support [facility] Oncology [address] [place] [address] Neuro-endocrine carcinoma (HCC) (Primary Dx); Neuroendocrine carcinoma [...] on file 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
--- OUTSIDE RECORDS SUMMARY | 2024-06-25 22:11 | XMS_ITS | Encounter Summary ---
Author Organization [facility] Address [address] [place] [address] Phone Care Team Providers Care Risk Compliance Manager Name Role Phone Julio César Briseno MD Primary Care Provider [phone] Eren Cr MD Unavailable Yohana Bowen MD Unavailable IpavaAlejo Ramos MD Unavailable [phone] Reason for Visit * Episode Based Medications (Routine) - Closed Specialty Diagnoses / Procedures Referred By Contac t Referred To Contact Diagnoses Neuro-endocrine carcinoma (HCC) Procedures study [id number] phase III cabozantinib Eren Cr MD [address] [place] [address] Phone: tel: fax: [facility] [address] [facility] 7th [place] [address] Phone: tel: Referral ID Status Reason Start Date Expiration Date Visits Re quested Visits Authorized [id number] Closed 06/21/2021 06/26/2024 1 99 Encounter Details Date Type Department Care Team (Latest Contact Info) Description 04/04/2023 3:00 PM CDT Office Visit [facility] [address] [place] [address] Sara Powers NP [address] [place] [address] Neuroendocrine carcinoma (HCC) (Primary Dx); Malignant neoplasm [...] on file 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 Gender Identity Not on file Sexual Orientation Straight 02/19/2021 9: 29 AM CDT Occupation Industry Job Start Date Job End Date retired Not on file Not on file Not on file documented as of this encounter Last Filed Vital Signs Vital Sign Reading Time Taken Comments Blood Pressure 151/75 04/04/2023 3:01 PM CDT Pulse 71 04/04/2023 2:38 PM CDT Temperature 36.3 ??C (97.3 ??F) 04/04/2023 2:38 PM CD T Respiratory Rate 17 04/04/2023 2:38 PM CDT Oxygen Saturation 99% 04/04/2023 2:38 PM CDT Inhaled Oxygen Concentration - - Weight 78.1 kg (172 lb 3.2 oz) 04/04/2023 2:38 P M CDT Height - - Body Mass Index 31.5 03/29/2023 1:00 PM CDT documented in this encounter Progress Notes * Sara PowersCECILIA - 04/04/2023 3:00 PM CDT Images from the original note were not included. 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 Greyson Reeves. Biopsy revealed [...] of liver lesions increased. 5. CABINET study started 07/21/2021 - 04/09/2022 scans stable - 06/14/2022 Cycle [...] mg daily dose - 03/01/2023 CT: stable 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 [...] cabozantinib/placebo daily. She comes today for cycle 22 day 1. She reports feeling well today. She continues to see scattered bruises to the left and right arms. She reports a stable energy level and appetite. She continues to have shortness of breath on exertion. She denies rash, fever, chills, cough, chest pain, palpitations, mucositis, dysuria, flank pain, foul smelling urine, worsening fatigue, new or worsening peripheral edema, new or worsening peripheral neuropathy, persistent or worsening headaches, weakness, new or worsening pain, hematuria, hematochezia, melena, hemoptysis, hematemesis. REVIEW OF SYSTEMS: A complete review of systems was performed and positive and pertinent negative responses are documented in the history of present illness All other systems were negative. PHYSICAL EXAM: ECOG PS: 1 VITALS: BP 151/75 (BP Location: Left arm) Pulse 71 Temp 36.3 ??C (97.3 ??F) (Temporal) Resp 17 Wt 78.1 kg (172 lb 3.2 oz) SpO2 99% BMI 31.50 kg/m?? GEN: Calm, conversant, well-appearing female in no apparent distress. HEENT: PERRL, sclerae anicteric, injected. Bilateral periorbital edema, nonpitting. LYMPH: No palpable cervical, supraclavicular lymphadenopathy. CV: RRR, no m/r/g PULM/CHEST: Clear to auscultation bilaterally. No wheezes or rales. Unlabored breathing. ABD: Soft, non tender, non distended, bowel sounds present. Well healed abdominal surgical scars. Ostomy in LLQ. EXT: No LE edema, warm and well-perfused SKIN: No rashes over exposed skin. Scattered bruises to arms. NEURO: A&Ox4, driftman grossly intact by conversation, moving all extremities well, no focal deficits appreciated PSYCH: Mood euthymic, affect appropriate and congruent, speech clear and goal-directed LABORATORY: I personally reviewed all laboratories and discussed with patient during office visit, selected values included below. Hematology Lab History Latest Ref Rng & Units 01/10/2023 09:26 02/07/2023 13:39 03/07/2023 09:23 04/04/2023 14:32 Labs - Hematology WBC 3.8 - 9.9 K/cumm 2.8 3.1 2.6 3.1 Total Hb, POC 11.9 - 15.5 g/dL 11.2 11.3 10.9 10.8 Hct 35.6 - 45.5 % 33.7 34.9 33.4 32.5 Plt 150 - 400 K/cumm 93 95 89 88 Neutrophil abs 1.7 - 6.5 K/cumm 1.9 1.9 1.6 2.0 Lymphocytes, abs 0.8 - 3.3 K/cumm 0.3 0.5 0.4 0.4 Chem/LFT Lab History Latest Ref Rng & Units 01/10/2023 09:26 02/07/2023 13:39 03/07/2023 09:23 04/04/2023 14:32 Labs-Chem/LFT Sodium 135 - 145 mmol/L 138 140 141 139 Creatinine 0.60 - 1.10 mg/dL 1.37 1.30 1.25 1.22 Bilirubin, total 0.1 - 1.2 mg/dL 0.5 0.5 0.6 0.5 AST 10 - 45 Units/L 36 29 34 33 ALT 7 - 45 Units/L 24 21 24 24 Alk phos 40 - 130 Units/L 65 62 59 61 CrCl- Actual Body Weight (Cockcroft-Gault) 44 46.5 48.8 49.9 Tumor Marker History Latest Ref Rng & Units 12/13/2022 10:07 01/10/2023 09:26 02/07/2023 13:39 03/07/2023 09:23 Tumor Markers Chromogranin A <93 ng/mL 1630 3635 019 9519 RADIOGRAPHIC/DIAGNOSTIC REVIEW: CT chest abdomen pelvis with [...] care. 1. Metastatic neuroendocrine tumor with metastases -We discussed her CT scan results from 03/01/23 that showed stable disease per RECIST. There was slightly increased size of an indeterminate right supraclavicular lymph node noted with attention to follow up recommended. -She continues on Octreotide LAR 30 mg; due for injection today. - We reviewed her labs today which are noted above and include values of: hemoglobin 11.8, platelets 88 K, ANC 1.6, creatinine 1.22, magnesium 1.4, phosphorus 2.9. - She was noted to have isolated grade 2 hypertension today, asymptomatic. - Chromogranin A 1552 on 03/07/23 - We discussed that the [employer] Data [employer] Safety Monitoring Board (DSMB) voted unanimously to release the CABINET study results, terminate accrual to the trial and unblind patients with possibility for patients receiving placebo to receive cabozantinib. This decision was based on an analysis of study data noting a dramatic improvement in PFS for patients receiving cabozantinib compared to placebo. We discussed that she was shown to have been randomized to cabozantinib rather than placebo. We feel that continuing cabozantinib is an appropriate medical intervention for the patient given ongoingstable disease per RECIST imaging review. - We will plan to proceed with cycle 22 day 1 of CABINET study, will continue on 20 mg dosing of cabozantinib - She will return for follow up in 4 weeks per protocol. 2. Bone metastases: - Xgeva has been on hold for lower phosphorus; 2.9 today. - Resume Xgeva today 3. Diarrhea - prn immodium and lomotil 4. Hypothyroidism with TSH elevated - continues on levothyroxine at 88 mcg daily - TSH 8.98, Free T4 1.03 on 03/29/23 - following with endocrinology 5. Vitamin D insufficiency/Deficiency: - 2000 international units daily recommended per nephrology - Vitamin D 19 on 03/07/23 6. Renal function - creatinine 1.22 -follows with Nephrology 7. Right TM perforation - Follow up with ENT, s/p surgery. 8. Hyperparathyroidism - Calcium 10.3 - may be secondary to CKD, denosumab use. - On vit d supplementation. - nephrology following. 9. Eye disorder, grade 1 - Not a reported side effect of cabozantinib, appears unrelated at this time. - F/u Ophthalmology as needed All of her and questions were answered to their satisfaction and they verbalized understanding. ARIELA Quiñones AGNP-C Medical Oncology documented in this encounter Plan of Treatment [...] Date ONCBCN CLINIC APPOINTMENT REQUEST 1 023 documented in this encounter Care Teams Risk Compliance Manager Relationship Specialty Start Date End Date Julio César Briseno MD PCP - General 10/01/16 Eren Cr MD Referring Physician Medical Oncology 11/25/18 Yohana Bowen MD Radiation Oncologist Radiation Oncology 11/25/18 Alejo Mi MD [address] [address] Referring Physician Nephrology 03/07/23 documented as of this encounter
--- OUTSIDE RECORDS SUMMARY | 2024-06-25 22:12 | XMS_ITS | Encounter Summary ---
Author Organization [facility] Address [address] [place] [address] Phone Care Team Providers Care River Boat Captain Name Role Phone Julio César Briseno MD Primary Care Provider Eren Cr MD Unavailable [phone] Yohana Bowen MD Unavailable Alejo Mi MD Unavailable [phone] Encounter Details Date Type Department Care Team (Late st Contact Info) Description 03/07/2023 Orders Only [facility] [address] [place] [address] Eren Cr MD [address] [place] [address] Social History Tobacco Use Types Packs/Day Years Used Date Smoking Tobacco: Never Smokeless Tobacco: Never Alcohol Use Standard Drinks/Week Comments Yes 1 (1 standard drink = 0.6 oz pur e alcohol) OASIS D0700: Social Isolation Answer Da te Recorded Frequency of experiencing loneliness or isolatio n Never 01/09/2023 OASIS A1250: Transportation Answer Date Recorded Lack [...] on file 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 Gender Identity Not on file Sexual Orientation Straight 02/19/2021 9: 29 AM CDT Occupation Industry Job Start Date Job End Date retired Not on file Not on file Not on file documented as of this encounter Plan of Treatment Not on file documented as of this encounter Visit Diagnoses Not on filedocumented in this encounter Care Teams River Boat Captain Relationship Specialty Start Date End Date Julio César Briseno MD PCP - General 10/01/16 Eren Cr MD Referring Physician Medical Oncology 11/25/18 Yohana Bowen MD Radiation Oncologist Radiation Oncology 11/25/18 Alejo Mi MD [address] [address] Referring Physician Nephrology 03/07/23 documented as of this encounter
--- OUTSIDE RECORDS SUMMARY | 2024-06-25 22:12 | XMS_ITS | Encounter Summary ---
Author Organization [facility] Address [address] [place] [address] Phone Care Team Providers Care Health Technical Writer Name Role Phone Julio César Briseno MD Primary Care Provider [phone] Eren Cr MD Unavailable [phone] Yohana Bowen MD Unavailable Reason for Visit * Reason Comments Chronic Fatigue Encounter Details Date Type Department Care Team (Late st Contact Info) Description 02/20/2023 10:00 AM CDT Home Care Visit [facility] [address] [address] [address] [place] [id number] Sherlyn Orozco RN SN HOME VISIT Social [...] on file 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 Gender Identity Not on file Sexual Orientation Straight 02/19/2021 9: 29 AM CDT Occupation Industry Job Start Date Job End Date retired Not on file Not on file Not on file documented as of this encounter Last Filed Vital Signs Vital Sign Reading Time Taken Comments Blood Pressure 142/80 02/20/2023 12:00 AM CDT Pulse 76 02/20/2023 12:00 AM CDT Temperature 36.8 ??C (98.2 ??F) 02/20/2023 12:00 AM C DT Respiratory Rate 17 02/20/2023 12:00 AM CDT Oxygen Saturation 97% 02/20/2023 12:00 AM CDT Inhaled Oxygen Concentration - - Weight - - Height - - Body Mass Index - - documented in this encounter Miscellaneous Notes * Home Health Plan for Next Visit - Sherlyn Orozco RN - 02/20/2023 10:30 AM CDT Reason for today's visit assessment, instruction,labs, line care Discuss plan of care with pt verb good understanding Discharge planning indef Plan for next visit weekly assessment, instruction, labs, line care documented in this encounter Plan of Treatment Not on file documented as of this encounter Visit Diagnoses Not on filedocumented in this encounter Administered Medications Inactive Administered Medications - up to 3 most recent administrations Medication Order MAR Action Action Date Dose Rate Site 0.9 % sodium chloride ([facility] sodium chloride 0.9%) injection 10 mL, intravenous, Weekly, First dose on Sat02/22/23 at 1315, On saturday, Indications: line careIndications:line care Given 02/20/2023 10:30 AM CDT 10 mL sodium chloride 0.9 % solution 1,000 mL, intravenous, Weekly, First dose on Sat02/22/23 at 1315, Patient to infuse 1000mL of Normal Saline via CADD Coreas pump set at 300mL/Hr once weekly.- Saturday, Indications: hydrationIndications:hydration Given 02/20/2023 10:30 AM CDT 1,000 mL documented in this [...] home health visit Disciplines: SN, PT, OT, HVAC INSTALLATION TECHNICIAN, DELIVERY MAN, Skilled Disciplines Monitor patient's vital signs every [...] visit during episode of care Description: Home master coastwise yacht to measure vital signs during every home [...] Problem:Learning/Teac soco Needs - IV Therapy Completed Weekly port reaccess per rn. sterile prep to insertion site with chlorhexidine x 30 seconds. allow to dry. access with 20g 3/4 inch gripper needle. assess for blood return. secure with sterii strips and cover with occlusive dressing. change clave with each port reaccess. flush per med list with ns and heparin.cover clave with alcohol swab caps Instruct on IV supplies Description: Instruct patient/caregiver [...] during episode of care Completed VSS Educate Family on Infection Prevention Description: Instructed family on signs and symptoms of infection IE: fever, odor, change in color, increased amount of drainage, purulent drainage, warmth. Problem:Infection Prevention Goal:Verbalize signs of infection Completed pt verb good understanding of infection prevention including proper handwashing and use of universal precautions Educate Patient on Infection Prevention Description: Instruct [...] Scheduled documented in this encounter Care Teams Health Technical Writer Relationship Specialty Start Date End Date Julio César Briseno MD PCP - General 10/01/16 Eren Cr MD Referring Physician Medical Oncology 11/25/18 Yohana Bowen MD Radiation Oncologist Radiation Oncology 11/25/18 documented as of this encounter
--- OUTSIDE RECORDS SUMMARY | 2024-06-25 22:12 | XMS_ITS | Encounter Summary ---
Author Organization [facility] Address [address] [place] [address] Phone Care Team Providers Care Paste Up Artist Apprentice Name Role Phone Julio César Briseno MD Primary Care Provider Eren Cr MD Unavailable [phone] Yohana Bowen MD Unavailable Reason for Visit * Reason Comments Post-op Pt is here for post op visit for eye swelling Encounter Details Date Type Department Care Team (Late st Contact Info) Description 02/25/2023 10:30 AM CDT Office Visit [facility] Otolaryngology [address] [facility], [facility] [address] [place] [address] Nasim Rojas MD 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 female who presents today for evaluation of Review of Systems A complete review of systems was completed by the patient on the Patient History Form and reviewed with the patient during the visit. The Patient History Form can be found in the electronic medical record as a scanned document. ASSESSMENT/PLAN Patient is seen 2 weeks following a right tympanoplasty. Her postop course was uneventful until thepast 3 days which she developed swelling around her left, contralateral eye. She was seen in urgentcare and begun on TobraDex ophthalmic drops. The swallowing since diminished in her findings are consistent with a resolving conjunctivitis. Otherwise, the packing in her external auditory canals left in place. She will continue with otic drops and maintain her routine postoperative follow-up. I have seen and examined the patient. I agree with the findings and plan of care as documented. Nasim Rojas M.D. Lowerator Operator, Otology and Neurotology Department of Otolaryngology [facility] [phone] documented in this encounter Plan of Treatment Not on file documented as of this encounter Visit Diagnoses Diagnosis Conductive hearing loss of right ear with unrestricted hearing of left ear- Primary Chronic atticoantral suppurative otitis media, right ear documented in this encounter Care Teams Paste Up Artist Apprentice Relationship Specialty Start Date End Date Julio César Briseno MD PCP - General 10/01/16 Eren Cr MD Referring Physician Medical Oncology 11/25/18 Yohana Bowen MD Radiation Oncologist Radiation Oncology 11/25/18 documented as of this encounter
--- OUTSIDE RECORDS SUMMARY | 2024-06-25 22:12 | XMS_ITS | Encounter Summary ---
Author Organization [facility] Address [address] [place] [address] Phone Care Team Providers Care Lead Php Developer Name Role Phone Julio César Briseno MD Primary Care Provider [phone] Eren Cr MD Unavailable [phone] Yohana Bowen MD Unavailable Alejo Mi MD Unavailable [phone] Encounter Details Date Type Department Care Team (Late st Contact Info) Description 03/26/2023 Orders Only [facility] Oncology [address] [place] [address] Yoana Murray [facility] Social History Tobacco Use Types Packs/Day Years [...] on file 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 Gender Identity Not on file Sexual Orientation Straight 02/19/2021 9: 29 AM CDT Occupation Industry Job Start Date Job End Date retired Not on file Not on file Not on file documented as of this encounter Plan of Treatment Not on file documented as of this encounter Visit Diagnoses Not on filedocumented in this encounter Care Teams Lead Php Developer Relationship Specialty Start Date End Date Julio César Briseno MD PCP - General 10/01/16 Eren Cr MD Referring Physician Medical Oncology 11/25/18 Yohana Bowen MD Radiation Oncologist Radiation Oncology 11/25/18 Alejo Mi MD [address] [address] Referring Physician Nephrology 03/07/23 documented as of this encounter
--- OUTSIDE RECORDS SUMMARY | 2024-06-25 22:12 | XMS_ITS | Encounter Summary ---
Author Organization [facility] Address [address] [place] [address] Phone Care Team Providers Care Field Sales Executive Name Role Phone Julio César Briseno MD Primary Care Provider [phone] Eren Cr MD Unavailable [phone] Yohana Bowen MD Unavailable Reason for Visit * Reason Comments Chronic Fatigue Encounter Details Date Type Department Care Team (Late st Contact Info) Description 03/06/2023 2:00 PM CDT Home Care Visit [facility] [address] [address] [address] [place] [id number] Sherlyn Orozco RN SN HOME VISIT Social [...] on file 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 Gender Identity Not on file Sexual Orientation Straight 02/19/2021 9: 29 AM CDT Occupation Industry Job Start Date Job End Date retired Not on file Not on file Not on file documented as of this encounter Last Filed Vital Signs Vital Sign Reading Time Taken Comments Blood Pressure 128/82 03/06/2023 1:30 PM CDT Pulse 72 03/06/2023 1:30 PM CDT Temperature 36.2 ??C (97.2 ??F) 03/06/2023 1:30 PM CD T Respiratory Rate 17 03/06/2023 1:30 PM CDT Oxygen Saturation 97% 03/06/2023 1:30 PM CDT Inhaled Oxygen Concentration - - Weight - - Height - - Body Mass Index - - documented in this encounter Miscellaneous Notes * Home Health Plan for Next Visit - Sherlyn Orozco RN - 03/08/2023 4:26 PM CDT Reason for today's visit assessment, [...] Dose Rate Site 0.9 % sodium chloride ([facility] sodium chloride 0.9%) injection 10 mL, intravenous, Weekly, First dose on 03/09/23 at 2330, On saturday, Indications: line careIndications:line care Given 03/06/2023 1:30 PM CDT 10 mL documented in this encounter Home Health Visit - Care Plan Visit Details Visit Type -SN Home Visit Discipline -[facility] Problems Problem Description Start Date Status Goals Interventions Safety concerns Disciplines: [facility] Safety needs related to infusion administration 11/14/2022 Active - 1 problem intervention scheduled/documen omar in this visit Learning/Teachin g Needs - IV Therapy Disciplines: [facility] Teaching and learning needs for performing home IV therapy 11/14/2022 Active - 6 problem interventions scheduled/documen omar in this visit Monitor patient's vital signs every home health visit Disciplines: SN, PT, OT, PRINCIPAL PRODUCT MANAGER, REGIONAL TRAINER, Skilled Disciplines Monitor patient's vital signs [...] visit during episode of care Description: Home access rn to measure vital signs during every home [...] Problem:Learning/Teac soco Needs - IV Therapy Completed sterile prep to insertion site with chlorhexidine x 30 seconds. allow to dry. access with 20g 3/4 inch gripper needle. assess for blood return. secure with sterii strips and cover with occlusive dressing. change clave with each port reaccess. flush per med list with ns and heparin. change prn if leaking or dislodged. cover clave with alcohol swab caps Instruct on [...] Problem:Infection Prevention Goal:Verbalize signs of infection Scheduled pt verb good understanding of infection prevention [...] Scheduled documented in this encounter Care Teams Field Sales Executive Relationship Specialty Start Date End Date Julio César Briseno MD PCP - General 10/01/16 Eren Cr MD Referring Physician Medical Oncology 11/25/18 Yohana Bowen MD Radiation Oncologist Radiation Oncology 11/25/18 documented as of this encounter
--- OUTSIDE RECORDS SUMMARY | 2024-06-25 22:12 | XMS_ITS | Encounter Summary ---
Author Organization [facility] Address [address] [place] [address] Phone Care Team Providers Care Biomedical Instrument Technician Name Role Phone Julio César Briseno MD Primary Care Provider Eren Cr MD Unavailable [phone] Yohana Bowen MD Unavailable Alejo Mi MD Unavailable [phone] Encounter Details Date Type Department Care Team (Late st Contact Info) Description 03/07/2023 Orders Only [facility] Oncology [address] [place] [address] Eren Cr MD [address] [place] [address] Social History Tobacco Use Types Packs/Day Years [...] on file 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 Gender Identity Not on file Sexual Orientation Straight 02/19/2021 9: 29 AM CDT Occupation Industry Job Start Date Job End Date retired Not on file Not on file Not on file documented as of this encounter Plan of Treatment Not on file documented as of this encounter Visit Diagnoses Not on filedocumented in this encounter Care Teams Biomedical Instrument Technician Relationship Specialty Start Date End Date Julio César Briseno MD PCP - General 10/01/16 Eren Cr MD Referring Physician Medical Oncology 11/25/18 Yohana Bowen MD Radiation Oncologist Radiation Oncology 11/25/18 Alejo Mi MD [address] [address] Referring Physician Nephrology 03/07/23 documented as of this encounter
--- OUTSIDE RECORDS SUMMARY | 2024-06-25 22:12 | XMS_ITS | Encounter Summary ---
Author Organization [facility] Address [address] [place] [address] Care Team Providers Care E Business Project Manager Name Role Phone Julio César Briseno MD Primary Care Provider [phone] Eren Cr MD Unavailable [phone] Yohana Bowen MD Unavailable Alejo Mi MD Unavailable [phone] Encounter Details Date Type Department Care Team (Latest Contact Info) Description 04/02/2023 3:21 PM CDT - 04/02/2023 11:59 PM CDT Hospital Encounter [facility] [place] [facility] ([facility]) [address] [place] [id number] Hypothyroidism, unspecified type Discharge Disposition: Discharge to [...] on file 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 Gender Identity Not on file Sexual [...] mouth nightly 0.9 % sodium chloride ([facility] sodium chloride 0.9%) injectionIndication s:line care Infuse 10 mL into a venous catheter once a week On saturday06/20/20 24 amLODIPine (NORVASC) 5 mg tabletIndications:h ypertension Take 0.5 tablets (2.5 mg total) by mouth nightly 07/27/2022 06/11/20 23 ascorbic acid, vitamin C, 500 mg capsuleIndications: supplement Take 1 tablet by mouth soft water mechanic before breakfast 07/04/2016 06/20/20 24 ciprofloxacin-dexAM ETHasone (CIPRODEX) otic suspension Administer 4 drops into the right ear 2 (two) times a day Begin 1 week post op 7.5 mL 3 02/05/2023 06/11/20 23 clotrimazole-betame thasone (LOTRISONE) cream Apply 1 Application topically daily as needed (rash) 06/20/20 24 coenzyme O82-zvmcurq E 100-5 mg-unit capsuleIndications: supplement Take 1 tablet by mouth soft water mechanic before breakfast 06/20/20 24 diphenoxylate-atrop ine (LOMOTIL) [...] -Heparin to flush 06/20/20 24 HYDROcodone-acetami nophen ([place]) 5-325 mg per tabletIndications:P ain Take 1 tablet by mouth every 6 (six) hours as needed for pain 15 tablet 02/05/2023 05/24/20 23 INV-[facility] cabozantinib/placeb o (2018-02-122/Q13462 2) 20 mg tabletIndications:c ancer study Take 1 tablet (20 mg total) by mouth nightly Take on an empty stomach (no food for 2 hours before and 1 hour after each dose).?? Avoid Jas's Wort, grapefruit products and [place] oranges while on treatment. 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 Take 1 tablet (88 mcg total) by mouth soft water mechanic before breakfast 90 tablet 1 10/12/2022 09/12/19 [...] Procedure Name Priority Date/Time Associated Diagnosis Comments THYROID PEROXIDASE ANTIBODY Routine 03/29/2023 3:45 PM CDT Hypothyroidism, unspecified type THYROID STIMULATING IMMUNOGLOBULIN Routine 03/29/2023 3:45 PM CDT Hypothyroidism, unspecified type TSH Routine 03/29/2023 3:45 PM CDT Hypothyroidism, unspecified type T4, FREE Routine 03/29/2023 3:45 PM CDT Hypothyroidism, unspecified type documented in this encounter Results * Thyroid stimulating immunoglobulin (03/29/2023 3:45 PM CDT) TSIG <1.0 <=1.3 [facility] Comment: Test Performed by: [id number] [place] [address] Bank Officer: Immanuel Novak M.D. Ph.D.; CLIA# [id number] Blood 03/29/2023 3:45 PM CDT 03/29/2023 4:58 PM CDT us Leila Gaytan MD LAB BLOOD ORDERABLES Final R esult [facility] Department [place] [address] * Thyroid peroxidase antibody (TPO) (03/29/2023 3:45 PM CDT) Anti Thyroid Peroxidase <30 <=34 units/mL [facility] Comment: ATPO Interpretive Data Results may be up to 28% higher in patients receiving Itraconazole. Current interpretive data was last revised 2020. Blood 03/29/2023 3:45 PM CDT 03/29/2023 4:07 PM CDT Leila Gaytan MD LAB BLOOD ORDERABLES Final R esult Performing Organization Address [facility] Co de Phone Number [facility] [email or web address] [address] * (ABNORMAL) TSH (03/29/2023 3:45 PM CDT) Thyroid Stimulating Hormone 8.98(H) 0.30 - 4.20 mcIUnit/mL [facility] Blood 03/29/2023 3:45 PM CDT 03/29/2023 4:07 PM CDT Leila Gaytan MD LAB BLOOD ORDERABLES Final R esult Performing Organization Address [facility] Co de Phone Number [facility] [email or web address] [address] * T4, free (03/29/2023 3:45 PM CDT) Free T4 1.03 0.90 - 1.70 ng/dL [facility] Blood 03/29/2023 3:45 PM CDT 03/29/2023 4:07 PM CDT Leila Gaytan MD LAB BLOOD ORDERABLES Final R esult Performing Organization Address [facility] [place] [address] documented in this encounter Visit Diagnoses Diagnosis Hypothyroidism, unspecified type documented in this encounter Care Teams E Business Project Manager Relationship Specialty Start Date End Date Julio César Briseno MD PCP - General 10/01/16 Eren Cr MD Referring Physician Medical Oncology 11/25/18 Yohana Bowen MD Radiation Oncologist Radiation Oncology 11/25/18 Alejo Mi MD [address] [address] Referring Physician Nephrology 03/07/23 documented as of this encounter
--- OUTSIDE RECORDS SUMMARY | 2024-06-25 22:12 | XMS_ITS | Encounter Summary ---
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 Gender Identity Not on file Sexual Orientation Straight 02/19/2021 9: 29 AM CDT Occupation Industry Job Start Date Job End Date retired Not on file Not on file Not on file documented as of this encounter Last Filed Vital Signs Vital Sign Reading Time Taken Comments Blood Pressure 152/72 03/16/2023 10:00 AM CDT Pulse 92 03/16/2023 10:00 AM CDT Temperature 36.3 ??C (97.3 ??F) 03/16/2023 10:00 AM C DT Respiratory Rate 14 03/16/2023 10:00 AM CDT Oxygen Saturation 98% 03/16/2023 10:00 AM CDT Inhaled Oxygen Concentration - - Weight - - Height - - Body Mass Index - - documented in this encounter Miscellaneous Notes * Home Health Visit Narrative - Nayla Julien RN - 03/16/2023 10:00 AM CDT Patient is going out of town and requested an early visit for PAC access and fluids. She deaccesses her port after infusing her weekly fluids. Next visit planned to resume on the following Saturday. CM called and was updated on today's hiccup visit and the plan going forward. Patient was given a CADD bag to carry her IV bag and pump around while attending bridga shower today, to eliminate needing the IV pole today. Patient very agreeable to this and appreciative. Infusion infusing well via CADD for >15min before RN left. No concerns or complaints at this time. * Home Health Plan for Next Visit - Nayla Julien RN - 03/16/2023 10:00 AM CDT Reason for today's visit early visit for PAC access and fluids before going out of town Discuss plan of care with patient Discharge planned when shelter is no longer needed. Plan for next visit PAC access and fluids the following Wed after she returns from out of town. documented in this encounter Plan of Treatment Not on file documented as of this encounter Visit Diagnoses Not on filedocumented in this encounter Home Health Visit - Care Plan Visit Details Visit Type -SN Home Visit Discipline -Correction Problems Problem Description Start Date Status Goals Interventions Safety concerns Disciplines: Correction Safety needs related to infusion administration 11/14/2022 Active - 1 problem intervention scheduled/documen omar in this visit Learning/Teachin g Needs - IV Therapy Disciplines: Correction Teaching and learning needs for performing home IV therapy 11/14/2022 Active - 6 problem interventions scheduled/documen omar in this visit Monitor patient's vital signs every home health visit Disciplines: SN, PT, OT, BRUSHER HAND, DOMAIN ARCHITECT, Skilled Disciplines Monitor patient's vital signs every [...] visit during episode of care Description: Home cager operator to measure vital signs during every home [...] MD and infusion service Problem:Safety concerns Completed Instruct on IV supplies Description: Instruct patient/caregiver in how to gather supplies, how to restock IV supplies in the home, prepare supplies, administer IV medication and disconnect IV medication, inspecting solution and supplies before infusing, and waste disposal. Problem:Learning/Teac soco Needs - IV Therapy Completed Dressing change Description: Skilled Nurse to instruct [...] Problem:Learning/Teac soco Needs - IV Therapy Completed Portacath accessed right chest. Sterile technique used. Site cleansed 30 seconds chlorhexidine scrub and allowed to dry. Portacath accessed with appropriately sized portacath needle/access device. Good blood return. Port flushed well with saline flush and heparin flush as ordered. New clave placed. Dressed with steristrips and sterile, transparent, biooclusive dressing. Connections taped securely. Alcohol swapcap placed. Patient tolerated well without complaints or distress. IV Access Care/Maintenance Description: Skilled Nurse to [...] Problem:Learning/Teac soco Needs - IV Therapy Completed Instruct on IV flush Description: Instruct patient/caregiver in how to perform flushing of IV line according to MD orders or protocol. Problem:Learning/Teac soco Needs - IV Therapy Completed Instruct Infection Prevention Description: Instruct patient/caregiver in [...] health visit during episode of care Completed Aspects of Care Description: Instruct patient/caregiver on universal precautions and home infection control measures Problem:Infection Prevention Goal:Verbalize signs of infection Completed Educate Patient on Infection Prevention Description: Instruct [...] concerns Goal:Demonstrate use of safety precautions Completed Instruct Fall Prevention Description: Instruct patient/caregiver in methods to prevent falls Problem:Safety concerns Goal:Demonstrate use of safety precautions Scheduled documented in this encounter Care Teams Health Analyst Relationship Specialty Start Date End Date Julio César Briseno MD PCP - General 10/01/16 Eren Cr MD Referring Physician Medical Oncology 11/25/18 Yohana Bowen MD Radiation Oncologist Radiation Oncology 11/25/18 Alejo Mi MD [address] [address] Referring Physician Nephrology 03/07/23 documented as of this encounter
--- OUTSIDE RECORDS SUMMARY | 2024-06-25 22:12 | XMS_ITS | Encounter Summary ---
Author Organization [facility] Address [address] [place] [address] Phone Care Team Providers Care Director Of Regulatory Affairs Name Role Phone Julio César Briseno MD Primary Care Provider Eren Cr MD Unavailable [phone] Yohana Bowen MD Unavailable Alejo Mi MD Unavailable [phone] Encounter Details Date Type Department Care Team (Latest Contact Info) Description 03/25/2023 2:30 PM CDT Procedure visit [facility] Otolaryngology [facility]. 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 See scanned audiogram for results. Medical history was obtained by electromedical service engineer and reviewed. Results were reviewed with the patient by physician today. Juliet Ny MS, CCC-A documented in this encounter Plan of Treatment Not on file documented as of this encounter Procedures Procedure Name Priority Date/Time Associated Diagnosis Comments AUDBASE RESULTS 03/25/2023 2:03 PM CDT documented in this encounter Results * AUDBASE RESULTS (03/25/2023 2:03 PM CDT) Provider Scanning AUDIOLOGY SERVICES ORDERABLES Final Result documented in this encounter Visit Diagnoses Diagnosis Mixed conductive and sensorineural hearing loss of right ear with restricted hearing of left ear- Primary documented in this encounter Care Teams Director Of Regulatory Affairs Relationship Specialty Start Date End Date Julio César Briseno MD PCP - General 10/01/16 Eren Cr MD Referring Physician Medical Oncology 11/25/18 Yohana Bowen MD Radiation Oncologist Radiation Oncology 11/25/18 Alejo Mi MD [address] [place] [address] Referring Physician Nephrology 03/07/23 documented as of this encounter
--- OUTSIDE RECORDS SUMMARY | 2024-06-25 22:12 | XMS_ITS | Encounter Summary ---
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 The patient is under my care, and I have authorized the services on this plan of care and will periodically review the plan. documented in this encounter Plan of Treatment Not on file documented as of this encounter Visit Diagnoses Not on filedocumented in this encounter Care Teams Importer Exporter Relationship Specialty Start Date End Date Julio César Briseno MD PCP - General 10/01/16 Eren Cr MD Referring Physician Medical Oncology 11/25/18 Yohana Bowen MD Radiation Oncologist Radiation Oncology 11/25/18 Alejo Mi MD [address] [address] Referring Physician Nephrology 03/07/23 documented as of this encounter
--- OUTSIDE RECORDS SUMMARY | 2024-06-25 22:12 | XMS_ITS | Encounter Summary ---
Author Organization [facility] Address [address] [place] [address] Phone Care Team Providers Care Gut Sorter Name Role Phone Julio César Briseno MD Primary Care Provider [phone] Eren Cr MD Unavailable [phone] Yohana Bowen MD Unavailable [place] MD Unavailable [phone] Reason for Visit * Reason Comments OP Infusion * Episode Based Medications (Routine) - Authorized Specialty Diagnoses / Procedures Referred By Contac t Referred To Contact Diagnoses Hypomagnesemia Eren Cr MD [address] [facility] [address] [place] [address] Phone: tel: fax: [facility] [address] [facility] 7th [place] [address] Phone: tel: Referral ID Status Reason Start Date Expiration Date V isits Requested Visits Authorized [id number] Authorized 11/13/2021 04/01/2025 1 30 Encounter Details Date Type Department Care Team (Late st Contact Info) Description 03/07/2023 12:00 PM CDT Infusion [facility] [address] [place] [address] Hypomagnesemia (Primary Dx); Neuroendocrine carcinoma (HCC); Hypophosphatemia; Dehydration; Neuro-endocrine carcinoma (HCC); Malignant neoplasm metastatic [...] on file 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 Gender Identity Not on file Sexual Orientation Straight 02/19/2021 9: 29 AM CDT Occupation Industry Job Start Date Job End Date retired Not on file Not on file Not on file documented as of this encounter Last Filed Vital Signs Vital Sign Reading Time Taken Comments Blood Pressure 154/74 03/07/2023 12:42 PM CDT devin leon Pulse - - Temperature - - Respiratory Rate - - Oxygen Saturation - - Inhaled Oxygen Concentration - - Weight - - Height - - Body Mass Index - - documented in this encounter Nursing Notes * Babs Stokes, RN - 03/07/2023 12:00 PM CDT Oncology Nursing Note [facility] La Chung is a 72 y.o. female who presents for the following injection: Octreotide IM to Left Dorsogluteal Xgeva held due to low phos. Plan is on manual hold. Chemistry Lab Results Component Value Date SODIUM 141 03/07/2023 POTASSIUM 4.1 03/07/2023 CHLORIDE 108 03/07/2023 CO2 28 03/07/2023 ANIONGAP 5 03/07/2023 BUNSER 12 03/07/2023 CREATININE 1.25 (H) 03/07/2023 GLUCOSE 135 03/07/2023 CALCIUM 9.7 03/07/2023 BILITOT 0.6 03/07/2023 PROTEIN 6.8 09/10/2016 ALBUMIN 4.0 03/07/2023 GFRNAA 45 (L) 03/07/2023 ALKPHOS 59 03/07/2023 AST 34 03/07/2023 ALT 24 03/07/2023 PHOS 1.8 (L) 03/07/2023 MAGNESIUM 1.3 (L) 03/07/2023 Nursing Assessment Nursing Assessment Appetite: Fair (eats despite not being hungry, drinks electrolyte drinks) Have You Recently Lost Weight Without Trying?: No Diarrhea: Yes (loose stools; ostomy, normal output) Existing Patients: Any falls since your last visit?: No Fatigue: Constant Mouth Sores: No Nausea/Vomiting: No Neurological symptoms: Yes (surgery on right ear; recovering, no hearing in right currently due to packing) Pain: No Peripheral Neuropathy: No Shortness of Breath?: Yes Lungs auscultated PRN: No Pt is on oxygen?: No Respiratory Effort Characteristics: Dyspnea exertion Skin Condition/Temp: Warm, Dry, No swelling (gets home hydration once a week, getting fluids and electrolyes today) Swelling: No Additional Notes: BP: 154/74 (manual) Temp: 36.3 ??C (97.3 ??F) Temp src: Temporal Pulse: 88 Resp: 18 SpO2: 97 % Height: 159 cm (5' 2.6 ) Weight: 78.2 kg (172 lb 8 oz) Patient: met treatment parameters La Chung tolerated injection well Additional Notes: * Babs Stokes RN - 03/07/2023 12:00 PM CDT Oncology Nursing Note [facility] La Chung is a 72 y.o. female who presents for treatment of Magnesium 4 gram with NS 1 Liter over 90 minutes with zofran IV and compazine. Blood pressure repeated and checked manually. Research coordinator talked with patient and patient instructed to picking belt operator study oral medication from pharmacy upon discharge. Pre-treatment Nursing Assessment Nursing Assessment Appetite: Fair (eats despite not being hungry, drinks electrolyte drinks) Have You Recently Lost Weight Without Trying?: No Diarrhea: Yes (loose stools; ostomy, normal output) Existing Patients: Any falls since your last visit?: No Fatigue: Constant Mouth Sores: No Nausea/Vomiting: No Neurological symptoms: Yes (surgery on right ear; recovering, no hearing in right currently due to packing) Pain: No Peripheral Neuropathy: No Shortness of Breath?: Yes Lungs auscultated PRN: No Pt is on oxygen?: No Respiratory Effort Characteristics: Dyspnea exertion Skin Condition/Temp: Warm, Dry, No swelling (gets home hydration once a week, getting fluids and electrolyes today) Swelling: No Additional Notes: compazine given at completion of fluids when patient had emesis. Patient had relief from compazine. BP: 154/74 (manual) Temp: 36.3 ??C (97.3 ??F) Temp src: Temporal Pulse: 88 Resp: 18 SpO2: 97 % Height: 159 cm (5' 2.6 ) Weight: 78.2 kg (172 lb 8 oz) Treatment Patient: met treatment parameters Pre blood return: Mary Chung tolerated treatment well. Patient was frequently observed and monitored throughout the administration of their treatment. 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) documented in this encounter Administered Medications Inactive Administered Medications - up to 3 most recent administrations Medication Order MAR Action Action Date Dose Rate Site magnesium sulfate 4 g in sodium chloride 0.9% 100 mL IVPB 4 g, intravenous, at 72 mL/hr, Administer over 90 Minutes, Once as needed, If magnesium level is 1.2 and below give 4 grams (32 mEq), Starting on Lydia 03/07/23 at 1219, For 1 dose, If magnesium level is 1.2 and below: Administer magnesium 4 grams (32 mEq) IVPB over 2 hours.Indications:Hypoma gnesemia New Bag 03/07/2023 12:48 PM CDT 4 g 72 mL/hr octreotide LAR (SandoSTATIN LAR) extended release intramuscular injection 30 mg 30 mg, intramuscular, Once, On Lydia 03/07/23 at 1315, For 1 dose, Refrigerate. For IM intragluteal administration only- alternate gluteal sites. 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) Given 03/07/2023 2:28 PM CDT 30 mg Left Dorsogluteal/ Buttock ondansetron (ZOFRAN) injection 8 mg 8 mg, intravenous, Administer over 2 Minutes, Once as needed, nausea, vomiting, Starting on Lydia 03/07/23 at 1220, For 1 doseIndications:Hypophos phatemia Given 03/07/2023 12:27 PM CDT 8 mg prochlorperazine (COMPAZINE) injection 5 mg 5 mg, intravenous, Administer over 2 Minutes, Once, On Lydia 03/07/23 at 1500, For 1 doseIndications:Hypomagn esemia Given 03/07/2023 2:10 PM CDT 5 mg sodium chloride 0.9% bolus 1,000 mL 1,000 mL, intravenous, at 666.7 mL/hr, Administer over 90 Minutes, Once, On Lydia 03/07/23 at 1300, For 1 doseIndications:Dehydrat ion,Neuro-endocrine carcinoma (HCC) New Bag 03/07/2023 12:26 PM CDT 1,000 mL 666.7 mL/hr documented in this encounter Orders Appointment Requests Count Last Ordered Date Fi rst Ordered Date ONCBCN INFUSION APPT REQUEST 1 03/07/2023 documented in this encounter Care Teams Gut Sorter Relationship Specialty Start Date End Date Julio César Briseno MD PCP - General 10/01/16 Eren Cr MD Referring Physician Medical Oncology 11/25/18 Yohana Bowen MD Radiation Oncologist Radiation Oncology 11/25/18 Alejo Mi MD [address] [address] Referring Physician Nephrology 03/07/23 documented as of this encounter
--- OUTSIDE RECORDS SUMMARY | 2024-06-25 22:12 | XMS_ITS | Encounter Summary ---
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
--- OUTSIDE RECORDS SUMMARY | 2024-06-25 22:12 | XMS_ITS | Encounter Summary ---
Author Organization [facility] Address [address] [place] [address] Phone Care Team Providers Care Territory Service Representative Name Role Phone Julio César Briseno MD Primary Care Provider Eren Cr MD Unavailable [phone] Yohana Bowen MD Unavailable Alejo Mi MD Unavailable [phone] Encounter Details Date Type Department Care Team (Late st Contact Info) Description 03/08/2023 Orders Only [facility] Otolaryngology [address] [place] [address], [address] [place] [address] Xochitl Andersen CMA Social History Tobacco Use Types Packs/Day Years [...] on file 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 Gender Identity Not on file Sexual Orientation Straight 02/19/2021 9: 29 AM CDT Occupation Industry Job Start Date Job End Date retired Not on file Not on file Not on file documented as of this encounter Plan of Treatment Not on file documented as of this encounter Visit Diagnoses Not on filedocumented in this encounter Care Teams Territory Service Representative Relationship Specialty Start Date End Date Julio César Briseno MD PCP - General 10/01/16 Eren Cr MD Referring Physician Medical Oncology 11/25/18 Yohana Bowen MD Radiation Oncologist Radiation Oncology 11/25/18 Alejo Mi MD [address] [address] Referring Physician Nephrology 03/07/23 documented as of this encounter
--- OUTSIDE RECORDS SUMMARY | 2024-06-25 22:12 | XMS_ITS | Encounter Summary ---
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 Gender Identity Not on file Sexual Orientation [...] Last Ordered Date First Ordered Date [facility] cabozantinib/pl acebo (/[id number]) tablet 20 mg 1 03/07/2023 Nursing Count Last Ordered Date First Orde red Date ONCBCN OK TO TREAT 1 03/07/2023 ONCBCN STUDY COMMUNICATION 2 03/07/2023 ONCBCN TREATMENT PARAMETERS 1 1 03/07/2023 Appointment Requests Count Last Ordered Date Fi rst Ordered Date ONCBCN TAKE HOME STUDY DRUG APPT 1 03/07/20 documented in this encounter Care Teams Justice Court Judge Relationship Specialty Start Date End Date Julio César Briseno MD PCP - General 10/01/16 Eren Cr MD Referring Physician Medical Oncology 11/25/18 Yohana Bowen MD Radiation Oncologist Radiation Oncology 11/25/18 Alejo Mi MD [address] [place] [address] Referring Physician Nephrology 03/07/23 documented as of this encounter
--- OUTSIDE RECORDS SUMMARY | 2024-06-25 22:12 | XMS_ITS | Encounter Summary ---
Author Organization [facility] Address [address] [place] [address] Phone Care Team Providers Care Yarn Spinner Name Role Phone Julio César Briseno MD Primary Care Provider Eren Cr MD Unavailable [phone] Yohana Bowen MD Unavailable Alejo Mi MD Unavailable [phone] Reason for Visit * Reason Comments Post-op Encounter Details Date Type Department Care Team (Late st Contact Info) Description 03/25/2023 2:30 PM CDT Office Visit [facility] Otolaryngology 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 female who presents today for evaluation of Review of Systems A complete review of systems was completed by the patient on the Patient History Form and reviewed with the patient during the visit. The Patient History Form can be found in the electronic medical record as a scanned document. ASSESSMENT/PLAN Patient is seen 6 weeks following a right tympanoplasty superior course has been uneventful. The packing is out and the tympanic membranes intact. She is a mild residual conductive deficit, which will likely improve over the coming weeks. She will discontinue otic drops and resume normal activities. She will return in 3 months or sooner as needed I have seen and examined the patient. I agree with the findings and plan of care as documented. Nasim Rojas M.D. Truck Hopper, Otology and Neurotology Department of Otolaryngology [facility] [phone] documented in this encounter Plan of Treatment Not on file documented as of this encounter Visit Diagnoses Diagnosis Conductive hearing loss of right ear with unrestricted hearing of left ear- Primary Chronic atticoantral suppurative otitis media, right ear documented in this encounter Care Teams Yarn Spinner Relationship Specialty Start Date End Date Julio César Briseno MD PCP - General 10/01/16 Eren Cr MD Referring Physician Medical Oncology 11/25/18 Yohana Bowen MD Radiation Oncologist Radiation Oncology 11/25/18 Alejo Mi MD [address] [address] Referring Physician Nephrology 03/07/23 documented as of this encounter
--- OUTSIDE RECORDS SUMMARY | 2024-06-25 22:12 | XMS_ITS | Encounter Summary ---
Author Organization [facility] Address [address] [place] [address] Phone Care Team Providers Care Technical Operations Specialist Name Role Phone Julio César Briseno MD Primary Care Provider [phone] Eren Cr MD Unavailable [phone] Yohana Bowen MD Unavailable Alejo Mi MD Unavailable [phone] Encounter Details Date Type Department Care Team (Late st Contact Info) Description 03/27/2023 8:00 AM CDT Home Care Visit [facility] [address] [place] [address] Willem Sung, RN SN HOME VISIT Social [...] on file 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 Gender Identity Not on file Sexual Orientation Straight 02/19/2021 9: 29 AM CDT Occupation Industry Job Start Date Job End Date retired Not on file Not on file Not on file documented as of this encounter Last Filed Vital Signs Vital Sign Reading Time Taken Comments Blood Pressure 142/78 03/27/2023 10:00 AM CDT Pulse 80 03/27/2023 10:00 AM CDT Temperature 37.2 ??C (98.9 ??F) 03/27/2023 10:00 AM C DT Respiratory Rate 18 03/27/2023 10:00 AM CDT Oxygen Saturation 99% 03/27/2023 10:00 AM CDT Inhaled Oxygen Concentration - - Weight - - Height - - Body Mass Index - - documented in this encounter Miscellaneous Notes * Home Health Plan for Next Visit - Willem Sung RN - 03/27/2023 9:52 AM CDT Reason for today's visit: Assessment, port access. Discuss plan of care with patient Discharge planning ongoing Plan for next visit: Assessment, port access documented in this encounter Plan of Treatment Not on file documented as of this encounter Visit Diagnoses Not on filedocumented in this encounter Administered Medications Inactive Administered Medications - up to 3 most recent administrations Medication Order MAR Action Action Date Dose Rate Site 0.9 % sodium chloride ([facility] sodium chloride 0.9%) injection 10 mL, intravenous, Weekly, First dose on Lydia 03/28/23 at 2245, On saturday, Indications: line careIndications:line care Given 03/27/2023 10:15 AM CDT 10 mL sodium chloride 0.9 % solution 1,000 mL, intravenous, Weekly, First dose on Lydia 03/28/23 at 2245, Patient to infuse 1000mL of Normal Saline via CADD Coreas pump set at 300mL/Hr once weekly.- Saturday, Indications: hydrationIndications:hydration Given 03/27/2023 10:15 AM CDT 1,000 mL documented in this encounter Home Health Visit - Care Plan Visit Details Visit Type -SN Home Visit Discipline -Usp Problems Problem Description Start Date Status Goals Interventions Safety concerns Disciplines: Usp Safety needs related to infusion administration 11/14/2022 Active - 1 problem intervention scheduled/documen omar in this visit Learning/Teachin g Needs - IV Therapy Disciplines: Usp Teaching and learning needs for performing home IV therapy 11/14/2022 Active - 6 problem interventions scheduled/documen omar in this visit Monitor patient's vital signs every home health visit Disciplines: SN, PT, OT, UTILITY LOCATE TECHNICIAN, PHOTOCOMPOSITION KEYBOARD OPERATOR, Skilled Disciplines Monitor patient's vital signs [...] visit during episode of care Description: Home public weigher to measure vital signs during every home [...] and supplies before infusing, and waste disposal. IV Access Care/Maintenance Description: Skilled Nurse to [...] Therapy Completed Port accessed without problems and flushes well with IV fluids started.aregiver able to deaccess port after infusion completed. Instruct Infection Prevention Description: Instruct patient/caregiver in [...] Scheduled documented in this encounter Care Teams Technical Operations Specialist Relationship Specialty Start Date End Date Julio César Briseno MD PCP - General 10/01/16 Eren Cr MD Referring Physician Medical Oncology 11/25/18 Yohana Bowen MD Radiation Oncologist Radiation Oncology 11/25/18 Alejo Mi MD [address] [address] Referring Physician Nephrology 03/07/23 documented as of this encounter
--- OUTSIDE RECORDS SUMMARY | 2024-06-25 22:12 | XMS_ITS | Encounter Summary ---
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 Gender Identity Not on file Sexual Orientation Straight 02/19/2021 9: 29 AM CDT Occupation Industry Job Start Date Job End Date retired Not on file Not on file Not on file documented as of this encounter Last Filed Vital Signs Vital Sign Reading Time Taken Comments Blood Pressure 126/60 02/13/2023 12:05 PM CDT Pulse 60 02/13/2023 12:05 PM CDT Temperature 36.4 ??C (97.5 ??F) 02/13/2023 12:05 PM C DT Respiratory Rate 16 02/13/2023 12:05 PM CDT Oxygen Saturation 97% 02/13/2023 12:05 PM CDT Inhaled Oxygen Concentration - - Weight - - Height 160 cm (5' 3 ) 02/13/2023 12:05 PM CDT Body Mass Index - - documented in this encounter Miscellaneous Notes * Home Health Visit Narrative - Yo Santiago RN - 02/13/2023 12:00 AM CDT Patient Covid screen performed prior to arrival. Assessed patient upon arrival. All findings and vital signs WNL. Implanted port accessed without difficulty using aseptic technique and sterile TSM dressing applied. Skilled Nurse verified patency. Port flushed and aspirated without resistance. No signs/ symptoms of bleeding, hematoma, or infiltration. Started infusion of IV fluids via CADD pump. Patient discharged to home with port accessed and fluids running. Patient's spouse to heparinized anddeaccess port when infusion is completed. Patient's questions answered. Patient discharged with instruction to contact MD if complications occur. Patient verbalizes understanding. documented in this encounter Plan of Treatment Not on file documented as of this encounter Visit Diagnoses Not on filedocumented in this encounter Administered Medications Inactive Administered Medications - up to 3 most recent administrations Medication Order MAR Action Action Date Dose Rate Site 0.9 % sodium chloride ([facility] sodium chloride 0.9%) injection 10 mL, intravenous, Weekly, First dose on Lydia 02/14/23 at 1315, On saturday, Indications: line careIndications:line care Given 02/13/2023 12:35 PM CDT 10 mL Port sodium chloride 0.9 % solution 1,000 mL, intravenous, Weekly, First dose on Lydia 02/14/23 at 1315, Patient to infuse 1000mL of Normal Saline via CADD Coreas pump set at 300mL/Hr once weekly.- Saturday, Indications: hydrationIndications:hydration Given 02/13/2023 12:35 PM CDT 1,000 mL Port documented in this encounter Home Health Visit - Care Plan Visit Details Visit Type -SN Home Visit Discipline -Halfway Problems Problem Description Start Date Status Goals Interventions Safety concerns Disciplines: Halfway Safety needs related to infusion administration 11/14/2022 Active - 1 problem intervention scheduled/documen omar in this visit Learning/Teachin g Needs - IV Therapy Disciplines: Halfway Teaching and learning needs for performing home IV therapy 11/14/2022 Active - 7 problem interventions scheduled/documen omar in this visit Monitor patient's vital signs every home health visit Disciplines: SN, PT, OT, PARTS COUNTERPERSON, COLLOID MILL OPERATOR, Skilled Disciplines Monitor patient's vital signs [...] visit during episode of care Description: Home insurance processor to measure vital signs during every home [...] service Patient and caregiver verbalize understanding Instruct Infection Prevention Description: Instruct patient/caregiver in strategies to prevent infection. Instruct patient/caregiver on how to recognize signs and symptoms of infection and when to notify HH nurse and/or physician. Problem:Learning/Teac soco Needs - IV Therapy Completed Patient instructed on frequent/proper hand-washing techniques, Eldred precautions, avoid crowds and persons with known [...] Needs - IV Therapy Completed Skilled Nurse performed weekly port access using aseptic technique. Line flushed with 20 mL NS and TSM dressing applied. Patient's spouse to heparinize and deaccess port following completion of IV hydration. Instruct on IV flush Description: Instruct patient/caregiver [...] Therapy Completed Instructed patient/caregiver on how to deaccess port after infusion is completed and line has been heparinized. Patient and caregiver verbalize understanding . Instruct on IV supplies Description: Instruct patient/caregiver in how to gather supplies, how to restock IV supplies in the home, prepare supplies, administer IV medication and disconnect IV medication, inspecting solution and supplies before infusing, and waste disposal. Problem:Learning/Teac soco Needs - IV Therapy Scheduled Instructed patient/caregiver in how to gather supplies, how to restock IV supplies in the home, prepare supplies, administer IV medication and disconnect IV medication, inspecting solution and supplies before infusing, and waste disposal. Patient and caregiver verbalize understanding Dressing change [...] on signs and symptoms of infection. Patient's spouse verbalized understanding. Aspects of Care Description: Instruct [...] Scheduled documented in this encounter Care Teams Hydro Plant Site Manager Relationship Specialty Start Date End Date Julio César Briseno MD PCP - General 10/01/16 Eren Cr MD Referring Physician Medical Oncology 11/25/18 Yohana Bowen MD Radiation Oncologist Radiation Oncology 11/25/18 documented as of this encounter
--- OUTSIDE RECORDS SUMMARY | 2024-06-25 22:12 | XMS_ITS | Encounter Summary ---
Author Organization [facility] Address [address] [place] [address] Phone Care Team Providers Care Ekg Manager Name Role Phone Julio César Briseno MD Primary Care Provider [phone] Eren Cr MD Unavailable [phone] Yohana Bowen MD Unavailable Alejo Mi MD Unavailable [phone] Reason for Referral * Consultation (Urgent) - Closed Specialty Diagnoses / Procedures Referred By Contac t Referred To Contact Endocrinology Diagnoses Neuroendocrine carcinoma (HCC) Abnormal TSH Eren Cr MD [address] [place] [address] Phone: tel: fax: [facility] (All Locations) Referral ID Status Reason Start Date Expiration Date V isits Requested Visits Authorized [id number] Closed Specialty Services Required 03/12/2023 04/10/2024 1 1 Question Answer Please select the performing region: [facility] (All Locations) [[id number]] # of visits: [address] Cr referring patient for management of elevated TSH please. 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 Encounter Details Date Type Department Care Team (Late st Contact Info) Description 03/12/2023 Orders Only 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 Gender Identity Not on file Sexual Orientation Straight 02/19/2021 9: 29 AM CDT Occupation Industry Job Start Date Job End Date retired Not on file Not on file Not on file documented as of this encounter Plan of Treatment Scheduled Referrals Name Type Priority Associated Diagnoses Order Schedule Ambulatory referral to Endocrinology Outpatient Referral Urgent Neuroendocrine carcinoma (HCC) Abnormal TSH Expected: 03/26/2023 (Approximate), Expires: 03/12/2024 documented as of this encounter Visit Diagnoses Diagnosis Neuroendocrine carcinoma (HCC)- Primary Other malignant neoplasm of unspecified site Abnormal TSH documented in this encounter Care Teams Ekg Manager Relationship Specialty Start Date End Date Julio César Briseno MD PCP - General 10/01/16 Eren Cr MD Referring Physician Medical Oncology 11/25/18 Yohana Bowen MD Radiation Oncologist Radiation Oncology 11/25/18 Alejo Mi MD [address] [place] [address] Referring Physician Nephrology 03/07/23 documented as of this encounter
--- OUTSIDE RECORDS SUMMARY | 2024-06-25 22:12 | XMS_ITS | Encounter Summary ---
Author Organization [facility] Address [address] [place] [address] Care Team Providers Care Jewel Flat Surfacer Name Role Phone Julio César Briseno MD Primary Care Provider [phone] Eren Cr MD Unavailable [phone] Yohana Bowen MD Unavailable Alejo Mi MD Unavailable [phone] Encounter Details Date Type Department Care Team (Latest Contact Info) Description 03/29/2023 3:22 PM CDT - 03/29/2023 11:59 PM CDT Hospital Encounter 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 Gender Identity Not on file Sexual Orientation [...] mouth nightly 0.9 % sodium chloride ([facility] sodium chloride 0.9%) injectionIndication s:line care Infuse 10 mL into a venous catheter once a week On saturday06/20/20 24 amLODIPine (NORVASC) 5 mg tabletIndications:h ypertension Take 0.5 tablets (2.5 mg total) by mouth nightly 07/27/2022 06/11/20 23 ascorbic acid, vitamin C, 500 mg capsuleIndications: supplement Take 1 tablet by mouth violin mechanic before breakfast 07/04/2016 06/20/20 24 ciprofloxacin-dexAM ETHasone (CIPRODEX) otic suspension Administer 4 drops into the right ear 2 (two) times a day Begin 1 week post op 7.5 mL 3 02/05/2023 06/11/20 23 clotrimazole-betame thasone (LOTRISONE) cream Apply 1 Application topically daily as needed (rash) 06/20/20 24 coenzyme H31-yhnogjc E 100-5 mg-unit capsuleIndications: supplement Take 1 tablet by mouth violin mechanic before breakfast 06/20/20 24 diphenoxylate-atrop ine [...] -Heparin to flush 06/20/20 24 HYDROcodone-acetami nophen (Watts) 5-325 mg per tabletIndications:P ain Take 1 tablet by mouth every 6 (six) hours as needed for pain 15 tablet 02/05/2023 05/24/20 23 [facility] cabozantinib/placeb o (/[id number]) 20 mg tabletIndications:c ancer study Take 1 tablet (20 mg total) by mouth nightly Take on an empty stomach (no food for 2 hours before and 1 hour after each dose).?? Avoid Jas's Wort, grapefruit products and Distant oranges while on treatment. 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 Take 1 tablet (88 mcg total) by mouth violin mechanic before breakfast 90 tablet 1 10/12/2022 [...] on filedocumented in this encounter Care Teams Jewel Flat Surfacer Relationship Specialty Start Date End Date Julio César Briseno MD PCP - General 10/01/16 Eren Cr MD Referring Physician Medical Oncology 11/25/18 Yohana Bowen MD Radiation Oncologist Radiation Oncology 11/25/18 Alejo Mi MD [address] [address] Referring Physician Nephrology 03/07/23 documented as of this encounter
--- OUTSIDE RECORDS SUMMARY | 2024-06-25 22:12 | XMS_ITS | Encounter Summary ---
Author Organization [facility] Address [address] [place] [address] Phone Care Team Providers Care Nitric Acid Concentrator Operator Name Role Phone Julio César Briseno MD Primary Care Provider [phone] Eren Cr MD Unavailable [phone] Yohana Bowen MD Unavailable VassarAlejo Ramos MD Unavailable Reason for Visit * Episode Based Medications (Routine) - Closed Specialty Diagnoses / Procedures Referred By Contac t Referred To Contact Diagnoses Neuro-endocrine carcinoma (HCC) Procedures study [id number] phase III cabozantinib Eren Cr MD [address] [place] [address] Phone: tel: fax: [facility] [address] [facility] 7th [place] [address] Phone: tel: Referral ID Status Reason Start Date Expiration Date Visits Re quested Visits Authorized [id number] Closed 06/21/2021 06/26/2024 1 99 Encounter Details Date Type Department Care Team (Latest Contact Info) Description 03/07/2023 9:15 AM CDT Clinical Support [facility] [address] [place] [address] Neuro-endocrine carcinoma (HCC) Social History Tobacco Use [...] on file 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
--- OUTSIDE RECORDS SUMMARY | 2024-06-25 22:12 | XMS_ITS | Encounter Summary ---
Author Organization [facility] Address [address] [place] [address] Phone Care Team Providers Care Multimedia Specialist Name Role Phone Julio César Briseno MD Primary Care Provider [phone] Eren Cr MD Unavailable [phone] Yohana Bowen MD Unavailable [place] RiverAlejo Ramos MD Unavailable [phone] Reason for Visit * Reason Comments Injections * Episode Based Medications (Routine) - Authorized Specialty Diagnoses / Procedures Referred By Contac t Referred To Contact Oncology Diagnoses 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) Procedures AK OCTREOTIDE INJECTION, DEPOT Octreotide 28 Day Cycles - Carcinoid Eren Cr MD [address] [facility] [address] [place] [address] Phone: tel: fax: [address] [address] Phone: tel: fax: Referral ID Status Reason Start Date Expiration Date V isits Requested Visits Authorized [id number] Authorized 11/28/2017 02/05/2025 1 150 Encounter Details Date Type Department Care Team (Late st Contact Info) Description 03/07/2023 2:00 PM CDT Infusion [facility] [address] [place] [address] Neuroendocrine carcinoma (HCC); Malignant neoplasm metastatic to [...] on file 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
--- OUTSIDE RECORDS SUMMARY | 2024-06-25 22:12 | XMS_ITS | Encounter Summary ---
Author Organization [facility] Address [address] [place] [address] Phone Care Team Providers Care Lbd Teacher Name Role Phone Julio César Briseno MD Primary Care Provider [phone] Eren Cr MD Unavailable [phone] Yohana Bowen MD Unavailable Encounter Details Date Type Department Care Team (Late st Contact Info) Description 02/08/2023 Treatment [facility] Otolaryngology [facility] [address] [facility], [address] [place] [address] 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 Chronic right side otitis media, tympanic membrane perforation Procedure(s) Performed: 1. right side tympanoplasty with tragal cartilage graft and microsurgical technique. Surgeon: Nasim Rojas MD Fellow Surgeon: Dayna Ruiz MD Resident Surgeon: TARI Anesthesia: General Complications: None Details of the Procedure: The patient was brought to the operating room, placed on the operating room table in supine position following satisfactory induction of general anesthesia. The right side side of the head and neck was then prepped and draped in sterile fashion. The external auditory canal was infiltrated with 1% Xylocaine with 1:100,000 concentration of epinephrine. The operative microscope was brought into the surgical field. Endaural self- retaining retractors were placed in the usual fashion, exposing the external auditory canal and the underlying tympanic membrane. A central tympanic membrane perforation was noted occupying 30% of the drum surface. Margins of perforation were freshened, surrounding epithelium removed. An incision made at 7 o'clock and reported medial and lateral to the annulus and extended superolaterally towards the skin incision. A tympanomeatal flap was elevated medially towards the level of the annulus. The flap was extended anteriorly towards the malleus. The annulus was elevated out of its posterior sulcus, exposing the middle ear. The annulus was continued to be elevated inferiorly and a bit more anteriorly. The middle ear was now explored. Adhesions were encountered and taken down. Specific adhesions between the incus, stapes, and promontory and these were taken down, allowing for improved mobility of the ossicular chain. Tragal cartilage was now harvested from a separate incision incision. Perichondrium was stripped ofthe cartilage and perichondrial cartilage graft was now prepared. The middle ear was now packed with Gelfoam soaked in saline. The previously prepared graft was now placed to underlying graft covering all margins of perforation. The tympanic membrane was returned to its original position. The external auditory canal was packed with Gelfoam soaked in Cipro. The wound was then closed in layers utilizing 5-0 fast-absorbing plain suture. Cotton was placed into the external auditory meatus. The patient was then allowed to wake and return to the recovery room, resting in stable condition. I was present and participated in all portions of the procedure. documented in this encounter Plan of Treatment Not on file documented as of this encounter Visit Diagnoses Diagnosis Tympanic membrane perforation, right- Primary Conductive hearing loss of right ear with unrestricted hearing of left ear Chronic atticoantral suppurative otitis media, right ear documented in this encounter Care Teams Lbd Teacher Relationship Specialty Start Date End Date Julio César Briseno MD PCP - General 10/01/16 Eren Cr MD Referring Physician Medical Oncology 11/25/18 Yohana Bowen MD Radiation Oncologist Radiation Oncology 11/25/18 documented as of this encounter
--- OUTSIDE RECORDS SUMMARY | 2024-06-25 22:12 | XMS_ITS | Encounter Summary ---
Author Organization [facility] Address [address] [place] [address] Phone Care Team Providers Care Science Technician Name Role Phone Julio César Briseno MD Primary Care Provider [phone] Eren Cr MD Unavailable [phone] Yohana Bowen MD Unavailable Alejo Mi MD Unavailable [phone] Encounter Details Date Type Department Care Team (Late st Contact Info) Description 03/29/2023 2:45 PM CDT Clinical Support [facility] Oncology [facility] 7th [place] [address] [place] [address] Social History Tobacco Use Types [...] on file 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 Gender Identity Not on file Sexual Orientation Straight 02/19/2021 9: 29 AM CDT Occupation Industry Job Start Date Job End Date retired Not on file Not on file Not on file documented as of this encounter Plan of Treatment Not on file documented as of this encounter Visit Diagnoses Not on filedocumented in this encounter Care Teams Science Technician Relationship Specialty Start Date End Date Julio César Briseno MD PCP - General 10/01/16 Eren Cr MD Referring Physician Medical Oncology 11/25/18 Yohana Bowen MD Radiation Oncologist Radiation Oncology 11/25/18 Alejo Mi MD [address] [address] Referring Physician Nephrology 03/07/23 documented as of this encounter
--- OUTSIDE RECORDS SUMMARY | 2024-06-25 22:12 | XMS_ITS | Encounter Summary ---
Author Organization [facility] Address [address] [place] [address] Phone Care Team Providers Care Hand Fabric Cutter Name Role Phone Julio César Briseno MD Primary Care Provider [phone] Eren Cr MD Unavailable [phone] Yohana Bowen MD Unavailable [place] MD Unavailable [phone] Reason for Visit * Episode Based Medications (Routine) - Closed Specialty Diagnoses / Procedures Referred By Contac t Referred To Contact Diagnoses Neuro-endocrine carcinoma (HCC) Procedures study [id number] phase III cabozantinib Eren Cr MD [address] [facility] [address] [place] [address] Phone: tel: fax: [facility] [address] [facility] Advanced Medicine 7th [place] [address] Phone: tel: Referral ID Status Reason Start Date Expiration Date Visits Re quested Visits Authorized [id number] Closed 06/21/2021 06/26/2024 1 99 Encounter Details Date Type Department Care Team (Late st Contact Info) Description 03/07/2023 9:45 AM CDT Office Visit 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 Gender Identity Not on file Sexual Orientation Straight 02/19/2021 9: 29 AM CDT Occupation Industry Job Start Date Job End Date retired Not on file Not on file Not on file documented as of this encounter Last Filed Vital Signs Vital Sign Reading Time Taken Comments Blood Pressure 177/85 03/07/2023 11:19 AM CDT Pulse 88 03/07/2023 9:53 AM CDT Temperature 36.3 ??C (97.3 ??F) 03/07/2023 9:53 AM CD T Respiratory Rate 18 03/07/2023 9:53 AM CDT Oxygen Saturation 97% 03/07/2023 9:53 AM CDT Inhaled Oxygen Concentration - - Weight 78.2 kg (172 lb 8 oz) 03/07/2023 9:53 AM CDT Height - - Body Mass Index 30.95 03/06/2023 10:08 AM CDT documented in this encounter Progress Notes * Angel Morales, CECILIA - 03/07/2023 9:45 AM CDT Images from the original note were not included. 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 It also showed bilateral ovarian enhancing solid masses suspiciousfor metastatic disease from above-mentioned gastrointestinal masses (Krukenberg tumors) and less likely primary bilateral ovarian neoplasms. Tiny nodules in the omentum which could represent tumor deposits. 07/2015 Colonoscopy ([facility]) - hemorrhoids, ileitis, and diverticulosis. 10/03/2015 s/p exploratory laparotomy, bilateral salpingo-oophorectomy, partial omentectomy, and peritoneal biopsies by Dr. Jasbir Reeves. At the same time, she also underwent right colectomy in the same OR by Dr. Greyson Reeves. 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 11/04/2015 MR A/P - Hepatic segment 7 lesion demonstrating mild T2 hyperintensity and diffusion restriction consistent with a metastatic focus. Enhancing nodules with diffusion restriction along the surface of the hepatic segment 6 consistent with serosal metastatic deposits. Nodular soft tissue enh ancement along the left aspect of the vaginal cuff, suspicious for local recurrence 11/04/2015 CT Chest - no evidence of metastatic disease in the chest 11/04/2015 Octreotide scan - No evidence for somatostatin receptor positive tumor. 11/07/2015 - Started on octreotide monthly injections 30 mg IM. S 10/21/2017 CT - minimal increase in her lesions. 04/21/2018 CT - Stable pulmonary nodules, hepatic lesions, perihepatic implants, and peritoneal deposits with unchanged retroperitoneal, right supraclavicular, and mediastinal lymphadenopathy consistent with stable metastatic disease. 10/21/2018 MRI - multiple hepatic lesions of concern the prior examination are consistent with metastases. In addition to these, there are numerous additional left and right hemiliver metastases that were not visualized on the prior examination due to differences in modality. Omental deposits are consistent with metastases. 11/19/18 Gallium dotatate PET - postsurgical changes of exploratory laparotomy and omentectomy withdiffuse metastatic disease in the chest, abdomen, and pelvis, including a lesion in the proximal left humerus. 11/24/2018, plan for PRRT due to disease progression on octreotide. PRRT cycle 1 on 12/24/2018 PRRT cycle 2 on 02/18/2019 03/23/19 CT C/A/P - stable disease. PRRT cycle 3 06/10/2019 PRRT cycle 4 08/05/2019 01/25/2020 Dotatate PET - increased size and intensity of uptake in a left humeral metastasis.New right C7 metastasis. Several liver lesions appear new, within the anterior superior left lobe. These sites are concerning for progression of disease. Decreased uptake and conspicuity of multiple bilateral lung nodules. 08/01/2020 CT - no significant change in multiple serosal hepatic metastases and omental metastaticdisease. Unchanged sclerotic lesion within the inferior right C7 articular facet likely representing metastasis given dotatate uptake. Stable right supraclavicular LN. 08/15/2020 continue monthly Octreotide LAR injections 12/27/2020 PET - progressive disease. Chromogranin A was rising 01/30/2021 Start Afinitor 10 mg PO daily + monthly Octreotide. 03/27/2021 discontinued Afinitor due to poor tolerance and symptomatic pneumonitis. 05/15/2021 CT - interval decrease in peripheral and basilar predominant ground glass opacity/reticulation and peribronchial vascular thickening consistent with resolving infectious/inflammatory etiology such as previously suggested organizing pneumonia. No evidence of disease progression in the chest. 21. 06/15/2021 MR A/P - majority of liver lesions increased. 22. CABINET study started 07/21/2021 23. 04/09/2022 scans stable 24. 06/14/2022 Cycle 12 Cabozantinib/placebo 20 mg daily dose 25. 07/12/2022 cycle 13 Cabozantinib/placebo 20 mg daily dose 26. 08/07/2022 cycle 14 Cabozantinib/placebo 20 mg daily dose 27. 09/05/2022 CT chest abdomen pelvis showed stable hepatic lesions and peritoneal implants; no new findings. 28. 09/06/2022 Cycle 15 day 1 Cabozantinib/placebo 20 mg daily dose 29. 10/18/2022 Cycle 16 day 1 Cabozantinib/placebo 20 mg daily dose 30.11/15/2022 Cycle 17 day 1 Cabozantinib/placebo 20 mg daily dose 31.12/11/2022 CT: stable 32.12/13/2022 Cycle 18 day 1 Cabozantinib/placebo 20 mg daily dose 33.01/10/2023 Cycle 19 day 1 Cabozantinib/placebo 20 mg daily dose 34.02/07/2023 Cycle 20 day 1 Cabozantinib/placebo 20 mg daily dose 35.03/01/2023 CT: stable Neuroendocrine carcinoma (CMS/HCC) (HCC) Malignant [...] cabozantinib/placebo daily. She comes today for cycle 21 day 1. She had a scan on 03/01/2023 that was stable per RECIST criteria and review. She had a right tympanoplasty 02/08/23 and feels she tolerated this well. She noticed blood and pain in the left eye about 3 weeks ago. She saw urgent care who gave her ciprodex which she is currently taking but is unsure if it is helping. She continues to report excessivelacrimation, slight redness of the sclera and puffiness around the outside of the eyes. She denies pain, bleeding, purulent drainage or vision change today. She is seeing an air pollution specialist tomorrow. She reports that the vaginal bleeding she reported at last visit stopped, but she saw her line dancer yesterday who did an exam and then had mild vaginal bleeding afterwards, now resolved. She reports feeling well today. She continues to see scattered bruises to the left and right arms, baseline grade 1 shortness of breath and restless leg syndrome, all stable. She reports a stable energy level and appetite. She denies rash, fever, chills, cough, chest [...] PHYSICAL EXAM: ECOG PS: 1 VITALS: BP (!) 177/85 Pulse 88 Temp 36.3 ??C (97.3 ??F) (Temporal) Resp 18 Wt 78.2 kg (172 lb 8 oz) SpO2 97% BMI 30.95 kg/m?? GEN: Calm, conversant, well-appearing female in [...] skin. Scattered bruises to arms. NEURO: A&Ox4, u.s. representative grossly intact by conversation, moving all extremities well, no focal deficits appreciated PSYCH: Mood euthymic, affect appropriate and congruent, speech clear and goal-directed LABORATORY: I personally reviewed all laboratories and discussed with patient during office visit, selected values included below. Hematology Lab History Latest Ref Rng & Units 12/13/2022 10:07 01/10/2023 09:26 02/07/2023 13:39 03/07/2023 09:23 Labs - Hematology WBC 3.8 - 9.9 K/cumm 2.8 2.8 3.1 2.6 Total Hb, POC 11.9 - 15.5 g/dL 10.9 11.2 11.3 10.9 Hct 35.6 - 45.5 % 33.0 33.7 34.9 33.4 Plt 150 - 400 K/cumm 85 93 95 89 Neutrophil abs 1.7 - 6.5 K/cumm 1.8 1.9 1.9 1.6 Lymphocytes, abs 0.8 - 3.3 K/cumm 0.4 0.3 0.5 0.4 Chem/LFT Lab History Latest Ref Rng & Units 12/13/2022 10:07 01/10/2023 09:26 02/07/2023 13:39 03/07/2023 09:23 Labs-Chem/LFT Sodium 135 - 145 mmol/L 140 138 140 141 Creatinine 0.60 - 1.10 mg/dL 1.43 1.37 1.30 1.25 Bilirubin, total 0.1 - 1.2 mg/dL 0.4 0.5 0.5 0.6 AST 10 - 45 Units/L 32 36 29 34 ALT 7 - 45 Units/L 20 24 21 24 Alk phos 40 - 130 Units/L 62 65 62 59 CrCl- Actual Body Weight (Cockcroft-Gault) 41.9 44 46.5 48.8 Tumor Marker History Latest Ref Rng & Units 11/15/2022 13:30 12/13/2022 10:07 01/10/2023 09:26 02/07/2023 13:39 Tumor Markers Chromogranin A <93 ng/mL 1170 1630 1326 902 RADIOGRAPHIC/DIAGNOSTIC REVIEW: CT chest abdomen pelvis with [...] noted above and include values of: hemoglobin 10.9, platelets 89 K, ANC 1.6, creatinine 1.25, magnesium 1.3, phosphorus 1.8. - She was noted to have isolated grade 2 hypertension today, asymptomatic. - Chromogranin A 902 on 01/10/23 - We discussed that the [place] Data and Safety Monitoring Board (DSMB) voted [...] We will plan to proceed with cycle 21 day 1 of CABINET study, will continue on 20 mg dosing of cabozantinib - She will return for follow up in 4 weeks per protocol. 2. Bone metastases: - Xgeva has been on hold for lower phosphorus; 1.8 today. 3. Diarrhea - prn immodium and lomotil 4. Hypothyroidism with TSH elevated - continues on levothyroxine at 88 mcg daily - TSH 8.7, Free T4 1.23 on 01/10/23 5. Vitamin D insufficiency/Deficiency: - 2000 international units daily recommended per nephrology - Vitamin D 19 on 03/07/23 6. Renal function - creatinine 1.25 -follows with Nephrology 7. Right TM perforation - Follow up with ENT, s/p surgery. 8. Hyperparathyroidism - Calcium 9.7 - may be secondary to CKD, denosumab use. - On vit d supplementation. - nephrology following. 9. Vaginal bleeding - Resolved 10. Eye disorder, grade 2 - Not a reported side effect of cabozantinib, appears unrelated at this time. - Ophthalmology appointment tomorrow 11. Hypomagnesemia, grade 1 - 4 g MG IV today. All of her and questions were answered to their satisfaction and they verbalized understanding. Disease Status Documentation for mCODE Neoplastic Disease Neuroendocrine carcinoma (CMS/HCC) (HCC) Cancer Disease Assessment for mCODE Disease status: stable Reason for disease status: imaging, symptoms, physical exam, lab results Date of cancer disease status assessment: 03/07/23 Malignant neoplasm metastatic to liver (HCC) Cancer [...] this encounter Results * (ABNORMAL) Chromogranin A (04/04/2023 2:32 PM CDT) Chromogranin A 1687(H) <93 ng/mL [facility] Comment: Impaired renal or hepatic function or treatment with proton pump inhibitors may result in artifactual elevations of Chromogranin A. ADDITIONAL INFORMATION This test was developed and its performance characteristics determined by [facility] in a manner consistent with CLIA [...] a homogeneous time-resolved immunofluorescent assay manufactured by [employer] and performed on the [employer] Kryptor Compact Plus. ? Values obtained with different assay methods or kits may be different and cannot be used interchangeably. ? Test results cannot be interpreted as absolute evidence for the presence or absence of malignant disease. Test Performed by: [facility] [id number] [place] [address] Hospital Food Service Worker: Immanuel Novak M.D. Ph.D.; CLIA# [id number] Blood 04/04/2023 2:32 PM CDT 04/04/2023 7:20 PM CDT us Eren Cr MD LAB BLOOD ORDERABLES Final Re sult [facility] Department [place] [address] * (ABNORMAL) Comprehensive metabolic panel (04/04/2023 2:32 PM CDT) Sodium 139 135 - 145 mmol/L [facility] Comment:Testing performed by : [facility], [address] [facility] [id number] Potassium, pl 4.0 3.3 - 4.9 mmol/L [facility] Chloride 108 97 - 110 mmol/L [facility] CO2 24 22 - 32 mmol/L [facility] Anion gap 7 2 - 15 mmol/L [facility] BUN 16 6 - 25 mg/dL [facility] Creatinine 1.22(H) 0.60 - 1.10 mg/dL [facility] Glucose 106 70 - 199 mg/dL [facility] 2022. Calcium 10.3 8.5 - 10.3 mg/dL [facility] Bilirubin, total 0.5 0.1 - 1.2 mg/dL [facility] Protein, pl 6.2(L) 6.5 - 8.5 g/dL [facility] Albumin 4.0 3.5 - 5.0 g/dL [facility] Alk phos 61 40 - 130 Units/L [facility] ALT 24 7 - 45 Units/L [facility] AST 33 10 - 45 Units/L [facility] Blood 04/04/2023 2:32 PM CDT 04/04/2023 2:32 PM CDT us Eren Cr MD LAB BLOOD ORDERABLES Final Re sult [facility] Department [place] [address] * (ABNORMAL) CBC with auto differential (04/04/2023 2:32 PM CDT) WBC 3.1(L) 3.8 - 9.9 K/cumm [facility] Comment:Testing performed by : [facility], [address] [place] [id number] Hgb 10.8(L) 11.9 - 15.5 g/dL [facility] Comment:Testing performed by : [facility], [address] [place] [id number] Hct 32.5(L) 35.6 - 45.5 % [facility] Comment:Testing performed by : [facility], [address] [place] [id number] Plt 88(L) 150 - 400 K/cumm [facility] Comment:Testing performed by : [facility], [address] [place] [id number] MPV 10.4 9.1 - 12.3 fL [facility] RBC 3.26(L) 3.90 - 5.20 M/cumm [facility] MCV 99.7(H) 81.3 - 96.4 fL [facility] MCH 33.1 27.1 - 33.3 pg [facility] MCHC 33.2 32.3 - 35.7 g/dL [facility] RDW CV 14.6 11.1 - 14.9 % [facility] RDW SD 52.6(H) 35.7 - 48.1 fL [facility] NRBC abs 0.00 0.00 - 0.01 K/cumm [facility] Blood 04/04/2023 2:32 PM CDT 04/04/2023 2:32 PM CDT us Eren Cr MD LAB BLOOD ORDERABLES Final Re sult [facility] Department of Laboratories [place], [place] [id number] * (ABNORMAL) Vitamin D 25 hydroxy (04/04/2023 2:32 PM CDT) Vitamin D 25-OH 17(L) 30 - 80 ng/mL [facility] Blood 04/04/2023 2:32 PM CDT 04/04/2023 6:38 PM CDT Eren Cr MD LAB BLOOD ORDERABLES Final Re sult Performing Organization Address [facility] Co de Phone Number [facility] Department [place] [address] * Phosphorus (04/04/2023 2:32 PM CDT) Pathologist [facility] Phosphorus, pl 2.9 2.3 - 4.5 mg/dL [facility] Comment:Testing performed by : [facility], [address] [place] [id number] Blood 04/04/2023 2:32 PM CDT 04/04/2023 2:32 PM CDT Eren Cr MD LAB BLOOD ORDERABLES Final Re sult Performing Organization Address [facility] [[email or web address]] de Phone Number [facility] [place] [address] * (ABNORMAL) Lipid panel (04/04/2023 2:32 PM CDT) [facility] Cholesterol 147 30 - 199 mg/dL [facility] [...] revised on 2018. Triglycerides 206(H) <=149 mg/dL [facility] Comment: [...] revised on 2018. HDL 62 >=40 mg/dL [facility] Comment: [...] on 2018. LDL, calculated 44 <=129 mg/dL [facility] Comment: [...] revised on 2018. Non-HDL Cholesterol 85 mg/dL [facility] Comment: Interpretive [...] last revised on 2018. Chol/HDL ratio 2 [facility] Blood 04/04/2023 2:32 PM CDT 04/04/2023 6:38 PM CDT us Eren Cr MD LAB BLOOD ORDERABLES Final Re sult [facility] [place] [address] * TSH (04/04/2023 2:32 PM CDT) Thyroid Stimulating Hormone 3.70 0.30 - 4.20 mcIUnit/mL [facility] Blood 04/04/2023 2:32 PM CDT 04/04/2023 6:38 PM CDT us Eren Cr MD LAB BLOOD ORDERABLES Final Re sult Performing Organization Address [facility]/ZIP Co de Phone Number [facility] [place] [address] * Magnesium (04/04/2023 2:32 PM CDT) Magnesium 1.4 1.4 - 2.5 mg/dL [facility] Comment:Testing performed by : [facility], [address] [place] [id number] Blood 04/04/2023 2:32 PM CDT 04/04/2023 2:32 PM CDT Eren Cr MD LAB BLOOD ORDERABLES Final Re sult Performing Organization Address [facility] Co de Phone Number [facility] [place] [address] documented in this encounter Visit Diagnoses Diagnosis Neuroendocrine carcinoma (HCC)- Primary Other malignant neoplasm of unspecified site 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) Neuro-endocrine carcinoma (HCC) Other malignant neoplasm of unspecified site Hypomagnesemia Disorders of magnesium metabolism documented in this encounter Orders Appointment Requests Count Last Ordered Date Fi rst Ordered Date ONCBCN CLINIC APPOINTMENT REQUEST 2 023 03/07/2023 ONCBCN INJECTION APPOINTMENT REQUEST 1 03/09 ONCBCN LAB APPOINTMENT 1 04/04/2023 ONCBCN TAKE HOME STUDY DRUG APPT 1 04/04/20 23 ONCBCN INFUSION APPT REQUEST 1 03/07/2023 documented in this encounter Care Teams Hand Fabric Cutter Relationship Specialty Start Date End Date Julio César Briseno MD PCP - General 10/01/16 Eren Cr MD Referring Physician Medical Oncology 11/25/18 Yohana Bowen MD Radiation Oncologist Radiation Oncology 11/25/18 Alejo Mi MD [address] [place] [address] Referring Physician Nephrology 03/07/23 documented as of this encounter
--- OUTSIDE RECORDS SUMMARY | 2024-06-25 22:12 | XMS_ITS | Encounter Summary ---
Author Organization [facility] Address [address] [place] [address] Phone Care Team Providers Care Tour Guide Name Role Phone Julio César Briseno MD Primary Care Provider [phone] Eren Cr MD Unavailable [phone] Yohana Bowen MD Unavailable MonroetonAlejo Waggoner MD Unavailable [phone] Reason for Visit * Consultation (Urgent) - Closed Specialty Diagnoses / Procedures Referred By Contac t Referred To Contact Endocrinology Diagnoses Neuroendocrine carcinoma (HCC) Abnormal TSH Eren Cr MD [address] [facility] [address] [place] [address] Phone: tel: fax: [facility] (All Locations) Referral ID Status Reason Start Date Expiration Date V isits Requested Visits Authorized [id number] Closed Specialty Services Required 03/12/2023 04/10/2024 1 1 Encounter Details Date Type Department Care Team (Latest Contact Info) Description 03/29/2023 1:30 PM CDT Office Visit [facility] Endocrinology Metabolism and Lipid [address] [facility] Advanced [facility] 13th [place] [address] [place] [id number] Leila Gaytan MD [address] [place] [address] Hypothyroidism, unspecified type (Primary Dx); Neuroendocrine carcinoma (HCC); Abnormal TSH Social History Tobacco Use Types [...] on file Legal Sex Female 2:41 PM [employer] ADVIS[employer] Gender Identity Not on file Sexual Orientation Straight 02/19/2021 9: 29 AM CDT Occupation Industry Job Start Date Job End Date retired Not on file Not on file Not on file documented as of this encounter Last Filed Vital Signs Vital Sign Reading Time Taken Comments Blood Pressure 150/82 03/29/2023 1:00 PM CDT Pulse 74 03/29/2023 1:00 PM CDT Temperature 36.4 ??C (97.6 ??F) 03/29/2023 1:00 PM CD T Respiratory Rate - - Oxygen Saturation - - Inhaled Oxygen Concentration - - Weight 78 kg (172 lb) 03/29/2023 1:00 PM CDT Height 157.5 cm (5' 2 ) 03/29/2023 1:00 PM CDT Body Mass Index 31.46 03/29/2023 1:00 PM CDT documented in this encounter Patient Instructions * Patient Instructions* Leila Gaytan MD - 03/29/2023 1:30 PM CDT - get labs done today - start taking synthroid 88 mcg every day on an empty stomach - repeat thyroid labs in 6 weeks documented in this encounter Progress Notes * Leila Gaytan MD - 03/29/2023 1:30 PM CDT Images from the original note were not included. [facility] Patient: La Chung, 72 y.o. female (: 1950) PCP: Julio César Briseno MD (Referring: Eren Cr MD) Visit Date: 03/29/2023 La Chung was seen in consultation for elevated TSH. HPI Dr. Cr referring patient for management of elevated TSH. 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 Patient on Cabozantinib and Octreotide. Cabozantinib in 2021, later developed hypothyroidism. She is currently on levothyroxine at 88 mcg daily. Of note, TSH overall remains elevated since diagnosis. About 1.5-2motnhs ago, she started noticing bilateral puffy eyes and gel like discharge. Seen by eye doctor who recommended seeing endocrine. She does not have puffiness today on exam but did show usa picture consistent with her description. Patient states she has trouble being compliant with pills. Takes levothyroxine about 3/7 days. On ROS, she endorses fatigue. Has a colostomy. History Past medical history, past surgical history, [...] Taking? Authorizing Provider 0.9 % sodium chloride ([facility] sodium chloride 0.9%) injection Infuse 10 mL into a venous catheter once a week On saturday Yes Levon Kee MD ascorbic acid, vitamin C, 500 mg capsule Take 1 tablet by mouth clinical program director before breakfast 07/04/16 Yes Levon Kee MD cholecalciferol (VITAMIN D-3) 1,000 unit Take 1 tablet/capsule (1,000 Units total) by mouth daily Patient taking differently: Take 1 tablet/capsule (1,000 Units total) by mouth every morning 11/16/22 11/16/23 Yes Alejo Mi MD clotrimazole-betamethasone (LOTRISONE) cream Apply 1 Application topically daily as needed (rash) Yes Levon Kee MD coenzyme [id number] 100-5 mg-unit capsule Take 1 tablet by mouth clinical program director before breakfast Yes Levon Kee MD denosumab [...] -Heparin to flush Yes Levon Kee MD [id number] cabozantinib/placebo (/[id number]) 20 mg tablet Take 1 tablet (20 mg total) bymouth nightly Take on an empty stomach (no food for 2 hours before and 1 hour after each dose). Avoid Jas's Wort, grapefruit products and [place] oranges while on treatment. placed on hold 09/26/22 for covid 01/29/22 Yes Eren Cr MD levothyroxine (SYNTHROID) 88 mcg tablet Take 1 tablet (88 mcg total) by mouth clinical program director before breakfast Patient taking differently: Take 1 tablet (88 mcg total) by mouth clinical program director before breakfast 10/12/22 Yes Eren Cr MD [...] Eren Cr MD [place] [facility] and needs Cavilon 3M skin barrier film to manage. 09/21/19 Yes Greyson Reeves MD simvastatin (ZOCOR) 20 mg tablet Take 1 tablet (20 mg total) by mouth nightly Yes Levon Kee MD sodium chloride 0.9 % solution Infuse 1,000 mL into a venous catheter once a week Patient to [id number] of Normal Saline via CADD Coreas pump [...] Patient not taking: Reported on 03/06/2023 07/27/22 Levon Kee MD ciprofloxacin-dexAMETHasone (CIPRODEX) otic suspension Administer 4 drops into the right ear 2 (two) times a day Begin 1 week post op 02/05/23 Nasim Rojas MD HYDROcodone-acetaminophen ([place]) 5-325 mg per tablet Take 1 tablet [...] Never Smokeless tobacco: Never Vaping Use Vaping Use: Never used Substance and Sexual Activity Alcohol use: Yes Alcohol/week: 1.0 standard drink of alcohol Types: 1 Shots of liquor per week Drug use: No Sexual activity: Defer Partners: Male control/protection: Post-menopausal Review of Systems Twelve point ROS reviewed and negative except as noted in HPI. All other systems negative. Vitals & Physical Exam Blood pressure 150/82, pulse 74, temperature 36.4 ??C (97.6 ??F), height 157.5 cm (5' 2 ), weight 78 kg (172 lb). Estimated body mass index is 31.46 kg/m?? as calculated from the following: Height as of this encounter: 157.5 cm (5' 2 ). Weight as of this encounter: 78 kg (172 lb). Physical exam: General: well nourished, cooperative, no [...] Visit Medication Sig 0.9 % sodium chloride ([facility] sodium chloride 0.9%) injection Infuse 10 mL into a venous catheter once a week On saturday ascorbic acid, vitamin C, 500 mg capsule Take 1 tablet by mouth clinical program director before breakfast cholecalciferol (VITAMIN D-3) 1,000 unit Take 1 tablet/capsule (1,000 Units total) by mouth daily (Patient taking differently: Take 1 tablet/capsule (1,000 Units total) by mouth every morning) clotrimazole-betamethasone (LOTRISONE) cream Apply 1 Application topically daily as needed (rash) coenzyme [id number] 100-5 mg-unit capsule Take 1 tablet by mouth clinical program director before breakfast denosumab (Xgeva) 120 mg/1.7 mL [...] Fluids every -Heparin to flush [facility] cabozantinib/placebo (/[id number]) 20 mg tablet Take 1 tablet (20 mg total) [facility] nightly Take on an empty stomach (no food for 2 hours before and 1 hour after each dose). Avoid [place]'s Wort, grapefruit products and [place] oranges while on treatment. placed on hold 09/26/22 for covid levothyroxine (SYNTHROID) 88 mcg tablet Take 1 tablet (88 mcg total) by mouth clinical program director before breakfast (Patient taking differently: Take 1 tablet (88 mcg total) by mouth clinical program director before breakfast) lidocaine-prilocaine (lidocaine-prilocaine) cream Apply topically [...] if needed 15 minutes prior to MRI) montelukast (SINGULAIR) 10 mg tablet Take 1 [...] hours as needed for nausea or vomiting ondansetron ODT (ZOFRAN-ODT) 8 mg disintegrating tablet [...] venous catheter once a week Patient to [id number] of Normal Saline via CADD Coreas pump set at 300mL/Hr once weekly.- Saturday triamcinolone (KENALOG) 0.1 % ointment Apply to itchy rash on hands twice daily until improved (Patient taking differently: Apply 1 Application topically daily as needed for irritation or rash Apply to itchy rash on hands twice daily until improved) amLODIPine (NORVASC) 5 mg tablet Take 0.5 tablets (2.5 mg total) by mouth nightly (Patient not taking: Reported on 03/06/2023) ciprofloxacin-dexAMETHasone (CIPRODEX) otic suspension Administer 4 drops into the right ear 2 (two) times a day Begin 1 week post op HYDROcodone-acetaminophen ([place]) 5-325 mg per tablet Take 1 tablet by mouth every 6 (six) hours asneeded for pain prochlorperazine (COMPAZINE) 10 mg tablet Take 1 [...] HGBA1C Lab Results Component Value Date LDLCALC 73 03/07/2023 CREATININE 1.25 (H) 03/07/2023 Lab Results Component Value Date TSH 8.70 (H) 01/10/2023 FREET4 1.23 01/10/2023 No results found for: THYROGLOBULI , THGABINT No results found for: PROLACTIN , CORTISOL , ACTH , FSH , LH , ESTRADIOL , IGF1 No results found for: TESTOSTERONE , TESTOSTFREE Lab Results Component Value Date PTH 210 (H) 10/18/2022 CALCIUM 9.7 03/07/2023 CAION 5.86 (H) 04/11/2020 PHOS 1.8 (L) 03/07/2023 Lab Results Component Value Date GLUCOSE 135 03/07/2023 CALCIUM 9.7 03/07/2023 SODIUM 141 03/07/2023 POTASSIUM 4.1 03/07/2023 CO2 28 03/07/2023 CHLORIDE 108 03/07/2023 BUNSER 12 03/07/2023 CREATININE 1.25 (H) 03/07/2023 Lab Results Component Value Date ALT 24 03/07/2023 AST 34 03/07/2023 ALKPHOS 59 03/07/2023 BILITOT 0.6 03/07/2023 Lab Results Component Value Date WBC 2.6 (L) 03/07/2023 HGB 10.9 (L) 03/07/2023 HCT 33.4 (L) 03/07/2023 MCV 100.3 (H) 03/07/2023 LABPLAT 89 (L) 03/07/[address] chest abdomen pelvis with contrast [...] Assessment & Plan # Hypothyroidism # Eye puffiness Likely secondary to tyrosine kinase inhibitor. Discussed that generally, eye involvement is seen inGrave's disease with hyperthyroidism. Eye puffiness can be seen more severe cases of hypothyroidismbut her last TSH was around 8. - re-check TSH, FT4 - will check antibodies for thoroughness: TSI, TPO - continue levothyroxine 88mcg daily for now. Discussed the importance of compliance and taking on an empty stomach. If patient starts taking 7/7 days, that in itself will be a dose increase as she was taking it 3/7 days. All of the patient's questions were answered. The patient is in agreement with the proposed plan of care. Patient seen and plan discussed with Dr. Harding RTC in 3 months Leila Gaytan MD Cosigned by Immanuel Harding MD at 04/02/2023 9:48 AM CDT Associated attestation - Immanuel Harding MD - 04/02/2023 9:48 AM CDT I have seen and examined the patient. I agree with the findings and plan of care as documented in the resident/fellow's note. documented in this encounter Plan of Treatment Scheduled Orders Name Type Priority Associated Diagnoses Orde r Schedule TSH Lab Routine Hypothyroidism, unspecified type Expected: 05/10/2023 (Approximate), Expires: 03/29/2024 T4, free Lab Routine Hypothyroidism, unspecified type Expected: 05/10/2023 (Approximate), Expires: 03/29/2024 documented as of this encounter Results * T4, free (03/29/2023 3:45 PM CDT) Free T4 1.03 0.90 - 1.70 ng/dL [facility] Blood 03/29/2023 3:45 PM CDT 03/29/2023 4:07 PM CDT Leila Gaytan MD LAB BLOOD ORDERABLES Final R esult Performing Organization Address [facility]/ZIP Co de Phone Number [facility] Department [place] [address] * (ABNORMAL) TSH (03/29/2023 3:45 PM CDT) Thyroid Stimulating Hormone 8.98(H) 0.30 - 4.20 mcIUnit/mL [facility] Blood 03/29/2023 3:45 PM CDT 03/29/2023 4:07 PM CDT Leila Gaytan MD LAB BLOOD ORDERABLES Final R esult [facility] [place] [address] * Thyroid peroxidase antibody (TPO) (03/29/2023 3:45 PM CDT) Pathologist [facility] Anti Thyroid Peroxidase <30 <=34 units/mL [facility] Comment: ATPO Interpretive Data Results may be up to 28% higher in patients receiving Itraconazole. Current interpretive data was last revised 2020. Blood 03/29/2023 3:45 PM CDT 03/29/2023 4:07 PM CDT Leila Gaytan MD LAB BLOOD ORDERABLES Final R esult Performing Organization Address City/[facility] [place] [address] * Thyroid stimulating immunoglobulin (03/29/2023 3:45 PM CDT) Pathologist [facility] TSIG <1.0 <=1.3 [facility] Comment: Test Performed by: [facility] [address] [place] [address] Wild Animal Caretaker: Immanuel Novak M.D. Ph.D.; CLIA# [id number] Blood 03/29/2023 3:45 PM CDT 03/29/2023 4:58 PM CDT Leila Gaytan MD LAB BLOOD ORDERABLES Final R esult Performing Organization Address City/State/[facility] [place] [address] documented in this encounter Visit Diagnoses Diagnosis Hypothyroidism, unspecified type- Primary Neuroendocrine carcinoma (HCC) Other malignant neoplasm of unspecified site Abnormal TSH documented in this encounter Orders Outpatient Referral Count Last Ordered Date Fir st Ordered Date AMB REFERRAL TO ENDOCRINOLOGY 1 03/29/2023 documented in this encounter Care Teams Tour Guide Relationship Specialty Start Date End Date Julio César Briseno MD PCP - General 10/01/16 Eren Cr MD Referring Physician Medical Oncology 11/25/18 Yohana Bowen MD Radiation Oncologist Radiation Oncology 11/25/18 Alejo Mi MD [address] [place] [address] Referring Physician Nephrology 03/07/23 documented as of this encounter
--- OUTSIDE RECORDS SUMMARY | 2024-06-25 22:12 | XMS_ITS | Encounter Summary ---
Author Organization [facility] Address [address] [place] [address] Phone Care Team Providers Care Rand Cementer Name Role Phone Julio César Briseno MD Primary Care Provider [phone] Eren Cr MD Unavailable [phone] Yohana Bowen MD Unavailable Reason for Referral * Diagnostic Imaging (Routine) - Closed Specialty Diagnoses / Procedures Referred By Evelyne t Referred To Contact Diagnoses Osteopenia, unspecified location Procedures Dexa Axial Skeleton Bone Density 1 or 2 Site Oksana Rivas NP Phone: tel: fax: [facility] (All Locations) Referral ID Status Reason Start Date Expiration Date Visits Re quested Visits Authorized [id number] Closed 03/06/2023 04/04/2024 1 1 Reason for Visit * Reason Comments Follow-up Encounter Details Date Type Department Care Team (Late st Contact Info) Description 03/06/2023 10:00 AM CDT Office Visit [facility] Obstetrics and Gynecology [facility] 13th [place] [address] [place] [id number] Oksana Rivas NP [facility] [address] [address] Osteopenia, unspecified location (Primary Dx); 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); Stage 3b chronic kidney disease (HCC); Neuroendocrine carcinoma (CMS/HCC) (HCC); Malignant neoplasm metastatic to liver [...] on file 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 Gender Identity Not on file Sexual Orientation Straight 02/19/2021 9: 29 AM CDT Occupation Industry Job Start Date Job End Date retired Not on file Not on file Not on file documented as of this encounter Last Filed Vital Signs Vital Sign Reading Time Taken Comments Blood Pressure 174/82 03/06/2023 10:08 AM CDT Has not taken meds Pulse 109 03/06/2023 10:08 AM CDT Temperature 36.8 ??C (98.2 ??F) 03/06/2023 1 0:08 AM CDT Respiratory Rate 18 03/06/2023 10:0 8 AM CDT Oxygen Saturation 96% 03/06/2023 10: 08 AM CDT Inhaled Oxygen Concentration - - Weight 76.8 kg (169 lb 4.8 oz) 03/06/2023 10:08 AM CDT Height 159 cm (5' 2.6 ) 03/06/2023 10:0 8 AM CDT Body Mass Index 30.38 03/06/2023 10:08 AM CDT documented in this encounter Progress Notes * Oksana Rivas NP - 03/06/2023 10:00 AM CDT Gynecological Oncology Follow-up Surveillance Patient: La Chung : 1950 Date of Exam: 03/06/2023 HPI: La Chung is a 72 y.o., female with a 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 Dr Reeves removed the mass. 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 She is seeing Dr. Dm Crfor this. On recent Ga-68 DOTATATE-PET/CT imaging it was noted that interval progression of metastatic neuroendocrine tumor with at least three new hepatic lesions, one new retroperitoneal nodule and new sites of osseous disease, compatible with overall disease progression. She had been treated with everolimus and octreotide along with xgeva for bone mets. She is presently on the CABINET study with Cabozantinib vs placebo; stable disease noted on recent February scan. She is here now for routine gynecologic care and overall is doing well in this regard. She is managing her care in a proactive fashion. Had experienced some vaginal bleeding in the past which has notbeen an issue of late. This was precipitated by some increase in her activity. She is in the process of painting her son's bedrooms; a bit frustrated with having to take breaks due to her fatigue. Wediscussed options and I have given her a handout. She sleeps well and takes a nap which restores her energy. She has had some frustrations with her ear perforation and has followed up with ENT visits-presently using drops. Urinary incontinence is managed well with a new Rx. Her eyes have been affected with her treatment. Colostomy output is runny ; she has not taken her prn Rx- this was encouraged. Visit Diagnosis: 1. 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 Stage 3b chronic kidney disease (HCC) 3. Neuroendocrine carcinoma (CMS/HCC) (HCC) 4. 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 Distress Score: 2 I have reviewed the patients active problem list, past medical history and surgical history. Current Medications: Current Outpatient Medications Medication Sig Dispense Refill 0.9 % sodium chloride ([facility] sodium chloride 0.9%) injection Infuse 10 mL into a venous catheter once a week On saturday ascorbic acid, vitamin C, 500 mg capsule Take 1 tablet by mouth back sizer before breakfast cholecalciferol (VITAMIN D-3) 1,000 unit Take 1 tablet/capsule (1,000 Units total) by mouth daily (Patient taking differently: Take 1 tablet/capsule (1,000 Units total) by mouth every morning) 90 tablet/capsule 3 ciprofloxacin-dexAMETHasone (CIPRODEX) otic suspension Administer 4 drops into the right ear 2 (two) times a day Begin 1 week post op 7.5 mL 3 clotrimazole-betamethasone (LOTRISONE) cream Apply 1 Application topically daily as needed (rash) coenzyme [id number] 100-5 mg-unit capsule Take 1 tablet by mouth back sizer before breakfast denosumab (Xgeva) 120 mg/1.7 mL [...] by mouth every morning) 30 capsule 2 fluticasone propionate (FLONASE) 50 mcg/actuation nasal spray Administer 2 sprays into each nostrildaily as needed for rhinitis or allergies heparin 100 unit/mL solution Infuse 5 mL (500 Units total) into a venous catheter once a week Fluids every -Heparin to flush HYDROcodone-acetaminophen ([place]) 5-325 mg per tablet Take 1 tablet by mouth every 6 (six) hours asneeded for pain 15 tablet 0 [id number] cabozantinib/placebo (/[id number]) 20 mg tablet Take 1 tablet (20 mg total) bymouth nightly Take on an empty stomach (no food for 2 hours before and 1 hour after each dose). Avoid Jas's Wort, grapefruit products and [place] oranges while on treatment. placed on hold 09/26/22 for covid levothyroxine (SYNTHROID) 88 mcg tablet Take 1 tablet (88 mcg total) by mouth back sizer before breakfast (Patient taking differently: Take 1 tablet (88 mcg total) by mouth back sizer before breakfast) 90 tablet 1 lidocaine-prilocaine (lidocaine-prilocaine) [...] for nausea or vomiting 30 tablet 3 ondansetron ODT (ZOFRAN-ODT) 8 mg disintegrating tablet [...] venous catheter once a week Patient to [id number] of Normal Saline via CADD Coreas pump set at 300mL/Hr once weekly.- Saturday triamcinolone (KENALOG) 0.1 % ointment Apply to itchy rash on hands twice daily until improved (Patient taking differently: Apply 1 Application topically daily as needed for irritation or rash Apply to itchy rash on hands twice daily until improved) 454 g 1 amLODIPine (NORVASC) 5 mg tablet Take 0.5 tablets (2.5 mg total) by mouth nightly (Patient not taking: Reported on 03/06/2023) prochlorperazine (COMPAZINE) 10 mg tablet Take 1 tablet (10 mg total) by mouth every 6 (six) hours as needed for nausea (Patient taking differently: Take 1 tablet (10 mg total) by mouth every 6 (six)hours as needed for nausea or vomiting) 60 tablet 3 No current facility-administered medications for this visit. Facility-Administered Medications Ordered in Other Visits Medication Dose Route Frequency Provider Last Rate Last Admin L-arginine 1.25%/L-lysine 1.25% infusion 1,000 mL 1,000 mL intravenous Continuous Meagan Amaya MD Last Imagin03/01/23 CT IMPRESSION: 1. Stable hepatic metastases and peritoneal deposits. 2. Slightly increased size of indeterminate right supraclavicular lymph nodes. Recommend attention on followup. Recent Tumor Markers: Lab Results Component Value Date CA125 11.8 10/03/2015 Treatment Toxicity: Preventive screening: Health Maintenance Topic Date Due Fall Risk Assessment Never done Depression Screening-PHQ Never done Colon Cancer Screening-Colonoscopy Never done Well Visit 65+ Never done Zoster Vaccine (1 of 2) 07/22/2015 Covid-19 Vaccine (4 - Moderna risk series) 05/03/2021 Osteoporosis Screening-Bone Density Scan 03/10/2022 Influenza Vaccine (1) 03/08/2023 Breast Cancer Screening-Mammogram 04/02/2023 DTaP/Tdap/Td Vaccine (2 - Td or Tdap) 11/20/2030 Pneumococcal vaccine 65+ Completed Hepatitis C Screening Completed Bone Density Scan: Abnormal; and Date: 03/10/20 SUMMARY: Bone mineral density shows evidence of low bone mass in the hip and moderately increased fracture risk. Objective Physical exam: BP (!) 174/82 (BP Location: Right arm, Patient Position: Sitting) Comment: Has not taken meds Pulse 109 Temp 36.8 ??C (98.2 ??F) (Temporal) Resp 18 Ht 159 cm (5' 2.6 ) Wt 76.8 kg (169 lb 4.8 oz) SpO2 96% BMI 30.38 kg/m?? Constitutional: She is oriented to person, place, and time. She appears well- developed and well-nourished. HENT: Atraumatic, normocephalic, PERRLA, EOMI, EENT: within normal limits. Neck is supple, without thyromegaly or JVD. Head: Normocephalic. Eyes: EOM are normal. Neck: Normal range of motion. Neck supple. No thyromegaly present. Cardiovascular: Normal rate, regular rhythm and intact distal pulses. Pulmonary/Chest: Effort normal and breath sounds normal. Breast exam: No masses, no nipple discharge, axilla free Abdominal: Soft. Bowel sounds are normal. She exhibits no distension and no mass. There is no tenderness. No hernia. External Genitalia:Normal, no vulvar lesions seen. Normal hair distribution. Urethral Meatus:Normal in size, caliber and location. Urethra:Clear. No prolapse or polyps Vagina:Clear, no lesions seen or palpated. No significant cystocele or rectocele. Adequate support. Bimanual:Cervix and uterus surgically absent. Rectovaginal:Confirms. Musculoskeletal: Normal range of motion. She exhibits no edema or tenderness. Lymphadenopathy: She has no cervical adenopathy. Neurological: She is alert and oriented to person, place, and time. No sensory deficit. Skin: Skin is warm and dry.Multiple ecchymotic areas noted on both arms. Psychiatric: She has a normal mood and affect. Labs: Lab Results Component Value Date WBC 3.1 (L) 02/07/2023 HGB 11.3 (L) 02/07/2023 HCT 34.9 (L) 02/07/2023 NEUTROABS 1.9 02/07/2023 LABPLAT 95 (L) 02/07/2023 CALCIUM 10.0 02/07/2023 CO2 27 02/07/2023 ALBUMIN 4.0 02/07/2023 PROT 6.6 02/07/2023 ANIONGAP 6 02/07/2023 TRIG 193 (H) 02/07/2023 HDL 56 02/07/2023 ALT 21 02/07/2023 AST 29 02/07/2023 MAGNESIUM 1.7 02/07/2023 SODIUM 140 02/07/2023 POTASSIUM 4.8 02/07/2023 CHLORIDE 107 02/07/2023 CREATININE 1.30 (H) 02/07/2023 BUNSER 15 02/07/2023 GLUCOSE 77 02/07/2023 INR 0.9 07/04/2021 BILITOT 0.5 02/07/2023 CA125 11.8 10/03/2015 Assessment/Plan La is a 72 y.o., female with a history of carcinoid tumor/well differentiated neuro endocrine. She is here today for follow-up. Metastatic neuroendocrine tumor - Continues on Cabozantinib vs placebo; stable disease noted on CT scan. 12/11/2022 She will continue to follow up with Dr. Cr. She follows up with a urogynocologist close to home Well women screening exams: she will follow up with a bone mineral density this year in our bone center. Previously treated with Prolia.She will follow up. She had bilateral diagnostic breast US to evaluate nipple discharge which was negative for maliganancy. Todays breast exam was normal We will see the patient back for follow up in one years time. 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
--- OUTSIDE RECORDS SUMMARY | 2024-06-25 22:12 | XMS_ITS | Encounter Summary ---
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 dc's fluids, flushes & heparinizes Port before deaccessing PAC. Discuss plan of care with Patient and Discharge planned when [facility] is no longer needed. Plan for next visit PAC reaccess, start iv fluids, assessment documented in this encounter Plan of Treatment Not on file documented as of this encounter Visit Diagnoses Not on filedocumented in this encounter Administered Medications Inactive Administered Medications - up to 3 most recent administrations Medication Order MAR Action Action Date Dose Rate Site 0.9 % sodium chloride ([facility] sodium chloride 0.9%) injection 10 mL, intravenous, Weekly, First dose on 04/28/23 at 1999, On saturday, Indications: line careIndications:line care Given 03/23/2023 11:30 AM CDT 20 mL sodium chloride 0.9 % solution 1,000 mL, intravenous, Weekly, First dose on 04/28/23 at 1999, Patient to infuse 1000mL of Normal Saline via CADD Coreas pump set at 300mL/Hr once weekly.- Saturday, Indications: hydrationIndications:hydration Given 03/23/2023 11:37 AM CDT 1,000 mL documented in this encounter Home Health Visit - Care Plan Visit Details Visit Type -SN Home Visit Discipline -Nursing Home Problems Problem Description Start Date Status Goals Interventions Safety concerns Disciplines: Nursing Home Safety needs related to infusion administration 11/14/2022 Active - 1 problem intervention scheduled/documen omar in this visit Learning/Teachin g Needs - IV Therapy Disciplines: Nursing Home Teaching and learning needs for performing home IV therapy 11/14/2022 Active - 7 problem interventions scheduled/documen omar in this visit Monitor patient's vital signs every home health visit Disciplines: SN, PT, OT, ROTARY SWAGING MACHINE OPERATOR, VEGETABLE TIER, Skilled Disciplines Monitor patient's vital signs every [...] visit during episode of care Description: Home eap clinician to measure vital signs during every [...] supplies before infusing, and waste disposal. Problem:Learning/Teac sooc Needs - IV Therapy Completed Instruct Infection Prevention Description: Instruct patient/caregiver in strategies to prevent infection. Instruct patient/caregiver on how to recognize signs and symptoms of infection and when to notify nurse and/or physician. Problem:Learning/Teac soco Needs - IV Therapy Completed Instructed patient and caregiver on strategies to prevent infection: frequent/proper hand-washing techniques, Standard precautions, avoid crowds and persons with known infections, staying current with immunizations, s/s of infection, use of incentive spirometer, use of antibiotics and encourage adequate diet and fluid intake. Educated on signs and symptoms of infection IE: fever, odor, change in color, increased amount of drainage, purulent drainage, warmth, universal precautions and home infection control measures and when to notify HH nurse and/or physician. Patient and caregiver verbalized understanding. IV Administration Description: Skilled Nurse to instruct [...] Patient tolerated well without complaints or distress. deaccesses PAC after infusion completes. Patient and fully demonstrate/verbalize retention of education on process to safely remove PAC after infusion finishes. No concerns or complaints at this time. IV Access Care/Maintenance Description: Skilled Nurse to [...] Problem:Learning/Teac soco Needs - IV Therapy Completed IV Discontinuation Description: Instruct patient/caregiver on how to remove peripheral IV after last infusion per MD order or instruct on process of removal of Central Venous Catheter if it is to be removed in the home after infusion therapy is completed by Skilled Nurse. Problem:Learning/Teac soco Needs - IV Therapy Completed Instruct patient/caregiver on how to remove PAC after infusion completes. deaccesses PAC after infusion completes. Patient and fully demonstrate/verbalize retention of education on process to safely remove PAC after infusion finishes. No concerns or complaints at this time. Monitor Vital Signs Description: Monitor blood pressure, pulse, oxygen saturation, respirations, and temperature. Problem:Monitor patient's vital signs every home health visit Goal:Measure vital signs during every home health visit during episode of care Completed Educate Patient on Infection Prevention Description: Instruct patient on signs and symptoms of infection IE: fever, odor, change in color, increased amount of drainage, purulent drainage, warmth. Problem:Infection Prevention Goal:Verbalize signs of infection Completed Educate Family on Infection Prevention Description: Instructed family on signs and symptoms of infection IE: fever, odor, change in color, increased amount of drainage, purulent drainage, warmth. Problem:Infection Prevention Goal:Verbalize signs of infection Completed Aspects of Care Description: Instruct patient/caregiver on universal precautions and home infection control measures Problem:Infection Prevention Goal:Verbalize signs of infection Completed Assess safety Description: Assess patient safety Problem:Safety concerns Goal:Demonstrate use of safety precautions Completed Instruct Fall Prevention Description: Instruct patient/caregiver in methods to prevent falls Problem:Safety concerns Goal:Demonstrate use of safety precautions Scheduled documented in this encounter Care Teams Rock Breaker Relationship Specialty Start Date End Date Julio César Briseno MD PCP - General 10/01/16 Eren Cr MD Referring Physician Medical Oncology 11/25/18 Yohana Bowen MD Radiation Oncologist Radiation Oncology 11/25/18 Alejo Mi MD [id number] [place] [id number] Referring Physician Nephrology 03/07/23 documented as of this encounter
--- OUTSIDE RECORDS SUMMARY | 2024-06-25 22:12 | XMS_ITS | Encounter Summary ---
Author Organization [facility] Address [address] [place] [address] Phone Care Team Providers Care Echo Tech Name Role Phone Julio César Briseno MD Primary Care Provider [phone] Eren Cr MD Unavailable [phone] Yohana Bowen MD Unavailable Alejo Mi MD Unavailable [phone] Encounter Details Date Type Department Care Team (Latest Contact Info) Description 03/13/2023 8:30 AM CDT Home Care Visit [facility] [address] [place] [address] Willem Sung RN SN NON OASIS RECERTIFICATION Social History Tobacco Use Types Packs/Day Years [...] file 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 Gender Identity Not on file Sexual Orientation Straight 02/19/2021 9: 29 AM CDT Occupation Industry Job Start Date Job End Date retired Not on file Not on file Not on file documented as of this encounter Last Filed Vital Signs Vital Sign Reading Time Taken Comments Blood Pressure 154/78 03/13/2023 9:20 AM CDT Pulse 76 03/13/2023 9:20 AM CDT Temperature 36.6 ??C (97.8 ??F) 03/13/2023 9:20 AM CD T Respiratory Rate 16 03/13/2023 9:20 AM CDT Oxygen Saturation 96% 03/13/2023 9:20 AM CDT Inhaled Oxygen Concentration - - Weight - - Height - - Body Mass Index - - documented in this encounter Miscellaneous Notes * Home Health Plan for Next Visit - Willem Sung RN - 03/13/2023 9:14 AM CDT Reason for today's visit: Assess, access port. Discuss plan of care with patient/caregiver Discharge planning ongoing Plan for next visit: Assess, access port. documented in this encounter Plan of Treatment Not on file documented as of this encounter Visit Diagnoses Not on filedocumented in this encounter Administered Medications Inactive Administered Medications - up to 3 most recent administrations Medication Order MAR Action Action Date Dose Rate Site 0.9 % sodium chloride ([facility] sodium chloride 0.9%) injection 10 mL, intravenous, Weekly, First dose on Sat03/15/23 at 0945, On saturday, Indications: line careIndications:line care Given 03/13/2023 9:45 AM CDT 10 mL heparin 100 unit/mL solution 500 Units, intravenous, Weekly, First dose on Sat03/15/23 at 0945, Fluids every -Heparin to flush, Indications: Maintain Patency of Indwelling Vascular CatheterIndications:Maintain Patency of Indwelling Vascular Catheter Given 03/13/2023 9:45 AM CDT 5 mL documented in this encounter Home Health Visit - Care Plan Visit Details Visit Type -SN Non-OASIS Rec ert Discipline -Halfway Problems Problem Description Start Date [...] home health visit Disciplines: SN, PT, OT, REFINERY OPERATOR, COOK HELPER MEAT, Skilled Disciplines Monitor patient's vital signs every [...] visit during episode of care Description: Home commercial stripper to measure vital signs during every home [...] Completed SN instructed patient/caregiver on how to gather supplies, how to restock [...] medications and with no safety risk noted. Code Status Description: Discuss with patient/caregiver code status Problem:Safety concerns Goal:Demonstrate use of safety precautions Completed Full code. Instruct Fall Prevention Description: Instruct patient/caregiver in methods to prevent falls Problem:Safety concerns Goal:Demonstrate use of safety precautions Scheduled documented in this encounter Care Teams Echo Tech Relationship Specialty Start Date End Date Julio César Briseno MD PCP - General 10/01/16 Eren Cr MD Referring Physician Medical Oncology 11/25/18 Yohana Bowen MD Radiation Oncologist Radiation Oncology 11/25/18 Alejo Mi MD [address] [address] Referring Physician Nephrology 03/07/23 documented as of this encounter
--- OUTSIDE RECORDS SUMMARY | 2024-06-25 22:12 | XMS_ITS | Encounter Summary ---
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 Gender Identity Not on file Sexual Orientation Straight 02/19/2021 9: 29 AM CDT Occupation Industry Job Start Date Job End Date retired Not on file Not on file Not on file documented as of this encounter Last Filed Vital Signs Vital Sign Reading Time Taken Comments Blood Pressure 130/70 02/27/2023 1:26 PM CDT Pulse 103 02/27/2023 1:26 PM CDT Temperature 37.2 ??C (98.9 ??F) 02/27/2023 1:26 PM CD T Respiratory Rate 16 02/27/2023 1:26 PM CDT Oxygen Saturation 98% 02/27/2023 1:26 PM CDT Inhaled Oxygen Concentration - - Weight - - Height - - Body Mass Index - - documented in this encounter Miscellaneous Notes * Home Health Visit Narrative - Mj Lima RN - 02/27/2023 12:55 PM CDT Port-a-cath access/IVF today. Pt tolerated well. Pt and verbalize and demonstrate good understanding of aseptic techniuqes as per [facility] protocols. * Home Health Plan for Next Visit - Mj Lima RN - 02/27/2023 12:55 PM CDT Reason for today's visit: PAC access/IVF Discuss plan of care with the patient Discharge planning -- ongoing Plan for next visit in one week for same documented in this encounter Plan of Treatment Not on file documented as of this encounter Visit Diagnoses Not on filedocumented in this encounter Administered Medications Inactive Administered Medications - up to 3 most recent administrations Medication Order MAR Action Action Date Dose Rate Site 0.9 % sodium chloride ([facility] sodium chloride 0.9%) injection 10 mL, intravenous, Weekly, First dose on Lydia 02/28/23 at 0915, On saturday, Indications: line careIndications:line care Given 02/27/2023 1:29 PM CDT 10 mL sodium chloride 0.9 % solution 1,000 mL, intravenous, Weekly, First dose on Lydia 02/28/23 at 0915, Patient to infuse 1000mL of Normal Saline via CADD Coreas pump set at 300mL/Hr once weekly.- Saturday, Indications: hydrationIndications:hydration Given 02/27/2023 1:29 PM CDT 1,000 mL documented in this encounter Home Health Visit - Care Plan Visit Details Visit Type -SN Home Visit Discipline -Long Term Problems Problem Description Start Date Status Goals Interventions Safety concerns Disciplines: Long Term Safety needs related to infusion administration 11/14/2022 Active - 1 problem intervention scheduled/documen omar in this visit Learning/Teachin g Needs - IV Therapy Disciplines: Long Term Teaching and learning needs for performing home IV therapy 11/14/2022 Active - 6 problem interventions scheduled/documen omar in this visit Monitor patient's vital signs every home health visit Disciplines: SN, PT, OT, DEAN OF STUDENTS, ASW/ASUW TACTICAL AIR CONTROLLER, Skilled Disciplines Monitor patient's vital signs every [...] visit during episode of care Description: Home director of quality improvement to measure vital signs during every home [...] MD and infusion service Problem:Safety concerns Completed Verbalize good understanding of potential IV complications and prevention/management of same. Instruct on IV supplies Description: Instruct patient/caregiver in how to gather supplies, how to restock IV supplies in the home, prepare supplies, administer IV medication and disconnect IV medication, inspecting solution and supplies before infusing, and waste disposal. Problem:Learning/Teac soco Needs - IV Therapy Completed IV Access Care/Maintenance Description: Skilled Nurse to [...] include good handwashing, aseptic technique as per [facility] Home Infusion Policies and Procedures, and troubleshooting/manag ement. Instruct on IV flush Description: Instruct patient/caregiver in how to perform flushing of IV line according to MD orders or protocol. Problem:Learning/Teac scoo Needs - IV Therapy Completed Pt verbalizes good understanding of IV flush procedure using aseptic technique as per [facility] HH Infusion policy. Instruct Infection Prevention Description: [...] Scheduled documented in this encounter Care Teams Arcgis Developer Relationship Specialty Start Date End Date Julio César Briseno MD PCP - General 10/01/16 Eren Cr MD Referring Physician Medical Oncology 11/25/18 Yohana Bowen MD Radiation Oncologist Radiation Oncology 11/25/18 documented as of this encounter
--- OUTSIDE RECORDS SUMMARY | 2024-06-25 22:12 | XMS_ITS | Encounter Summary ---
Author Organization [facility] Address [address] [place] [address] Phone Care Team Providers Care Customs Patrol Officer Name Role Phone Julio César Briseno MD Primary Care Provider Eren Cr MD Unavailable [phone] Yohana Bowen MD Unavailable Alejo Mi MD Unavailable [phone] Encounter Details Date Type Department Care Team (Late st Contact Info) Description 03/07/2023 Orders Only [facility] On[facility] [address] [place] [address] Eren Cr MD [address] [place] [address] Social History Tobacco Use Types Packs/Day Years [...] on file 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 Gender Identity Not on file Sexual Orientation Straight 02/19/2021 9: 29 AM CDT Occupation Industry Job Start Date Job End Date retired Not on file Not on file Not on file documented as of this encounter Plan of Treatment Not on file documented as of this encounter Visit Diagnoses Not on filedocumented in this encounter Care Teams Customs Patrol Officer Relationship Specialty Start Date End Date Julio César Briseno MD PCP - General 10/01/16 Eren Cr MD Referring Physician Medical Oncology 11/25/18 Yohana Bowen MD Radiation Oncologist Radiation Oncology 11/25/18 Alejo Mi MD [address] [address] Referring Physician Nephrology 03/07/23 documented as of this encounter
--- OUTSIDE RECORDS SUMMARY | 2024-06-25 22:12 | XMS_ITS | Encounter Summary ---
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) Procedures CT chest abdomen pelvis with contrast Eren Cr MD [address] [place] [address] Phone: tel: fax: [facility] Referral ID Status Reason Start Date Expiration Date Visits Re quested Visits Authorized [id number] Closed 02/07/2023 03/08/2024 1 1 Reason for Visit * MRI/CAT/PET Scan (Routine) - Closed Specialty Diagnoses / Procedures Referred By [facility] Referred To Contact Radiology Diagnoses 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) Neuroendocrine carcinoma (HCC) Procedures CT chest abdomen pelvis with contrast Eren Cr MD [address] [facility] [address] [place] [address] Phone: tel: fax: [facility] Referral ID Status Reason Start Date Expiration Date Visits Re quested Visits Authorized [id number] Closed 02/07/2023 03/08/2024 1 1 Encounter Details Date Type Department Care Team (Latest Contact Info) Description 03/01/2023 11:04 AM CDT - 03/01/2023 11:59 PM CDT Hospital Encounter [facility] Radiology at [facility] [address] [place] [address] Neuro-endocrine carcinoma (HCC); Malignant neoplasm metastatic to liver (HCC); 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); Neuroendocrine carcinoma (HCC) Discharge Disposition: Discharge to [...] on file 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 Gender Identity Not on file Sexual [...] % sodium chloride (INV-BJ sodium chloride 0.9%) injectionIndication s:line care Infuse 10 mL into a venous catheter once a week On saturday06/20/20 24 amLODIPine (NORVASC) 5 mg tabletIndications:h ypertension Take 0.5 tablets (2.5 mg total) by mouth nightly 07/27/2022 06/11/20 23 ascorbic acid, vitamin C, 500 mg capsuleIndications: supplement Take 1 tablet by mouth digital business analyst before breakfast 07/04/2016 06/20/20 24 ciprofloxacin-dexAM ETHasone (CIPRODEX) otic suspension Administer 4 drops into the right ear 2 (two) times a day Begin 1 week post op 7.5 mL 3 02/05/2023 06/11/20 23 clotrimazole-betame thasone (LOTRISONE) cream Apply 1 Application topically daily as needed (rash) 06/20/20 24 coenzyme D67-[id number] E 100-5 mg-unit capsuleIndications: supplement Take 1 tablet by mouth digital business analyst before breakfast 06/20/20 24 diphenoxylate-atrop ine (LOMOTIL) [...] -Heparin to flush 06/20/20 24 HYDROcodone-acetami nophen ([place]) 5-325 mg per tabletIndications:P ain Take 1 tablet by mouth every 6 (six) hours as needed for pain 15 tablet 02/05/2023 05/24/20 23 [facility] cabozantinib/placeb o (2018-02-122/[id number]) 20 mg tabletIndications:c ancer study Take 1 tablet (20 mg total) by mouth nightly Take on an empty stomach (no food for 2 hours before and 1 hour after each dose).?? Avoid Jas's Wort, grapefruit products and [place] oranges while on treatment. 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 Stable hepatic metastases and peritoneal deposits. 2. Slightly increased size of indeterminate right supraclavicular lymph nodes. Recommend attention on followup. Dictated by: Neto Silva M.D. The radiology attending physician has personally reviewed this study, and had reviewed and/or edited this written report and agrees with it. Electronically signed by: Phoenix Mahoney M.D. Narrative 03/01/2023 1:16 PM CDT EXAMINATION: ??Computed tomography of the chest, abdomen and pelvis with intravenous contrast HISTORY: Metastatic neuroendocrine cancer TECHNIQUE: ??Transaxial computed tomographic images of the chest, abdomen and pelvis were obtained with intravenous contrast according to the standard protocol after the uneventful administration of 100 mL Opti-Ray 350 intravenous contrast. COMPARISON: 12/13/2022, 09/05/2022, PET/CT 12/27/2020 FINDINGS: ?? Chest: No suspicious pulmonary nodule. ??Increased right supraclavicular lymph node measuring 0.8 cm previously 0.5 cm series 2 image 9. Additional subcentimeter lymph nodes in the chest are unchanged in size. ??The heart size is upper limits of normal. ??No pleural or pericardial effusion right internal jugular central venous port catheter tip terminates at the superior cavoatrial junction. Aberrant right subclavian artery. Abdomen/Pelvis: Multiple hepatic metastases are again seen and not significantly changed in size. ??The largest is in segment 8/4 A measuring 2.7 x 2.7 cm, unchanged series 2 image 120. ??Portal vein is patent. Cholecystectomy. ??The adrenal glands, pancreas are normal. ??Cysts are seen in the kidneys without hydronephrosis. ??Subcentimeter hypoattenuating splenic lesions are unchanged. ??A duodenal diverticulum is unchanged. Right hemicolectomy changes with a colostomy in the left lower quadrant and a parastomal hernia containing nonobstructed small bowel and mesenteric fat Urinary bladder is decompressed. ??No suspicious osseous lesion. ??The abdominal aorta is moderately atherosclerotic but not aneurysmal.. Multiple peritoneal deposits are similar to prior. ??For example a deposit in the pelvis along the vaginal cuff measures 2.8 x 2.4 cm, unchanged series 2 image 262. ??A peritoneal deposit tethering the sigmoid colon which is partially calcified is also unchanged measuring 1.5 cm series [address] correlate for previously mentioned osseous lesions on PET/CT 12/27/2020. Procedure Note Phoenix Mahoney MD - 03/01/2023 EXAMINATION: Computed tomography of the chest, abdomen [...] heart size is upper limits of normal. No pleural or pericardial effusion right internal jugular central venous port catheter tip terminates at the superior cavoatrial junction. Aberrant right subclavian artery. Abdomen/Pelvis: Multiple hepatic metastases are again seen and not significantly changed in size. The largest is in segment 8/4 A measuring 2.7 x 2.7 cm, unchanged series 2 [...] previously mentioned osseous lesions on PET/CT 12/27/2020. IMPRESSION: 1. Stable hepatic metastases and peritoneal deposits. 2. Slightly increased size of indeterminate right supraclavicular lymph nodes. Recommend attention on followup. Dictated by: Neto Silva M.D. The radiology attending physician has personally reviewed this study, and had reviewed and/or edited this written report and agrees with it. Electronically signed by: Phoenix Mahoney M.D. Eren Cr MD IMG CT PROCEDURES [...] 500 Units (5 mL), intra-catheter, Once, On Sat03/01/23 at 1200, For 1 dose Given 03/01/2023 11:40 AM CDT 500 Units ioversoL (OPTIRAY 350) injection 75 mL 75 mL, intravenous, Once in imaging, contrast, Starting on Sat03/01/23 at 1133, For 1 dose Contrast Given 03/01/2023 11:34 AM CDT 75 mL documented in this encounter Care Teams Sole Buffer Relationship Specialty Start Date End Date Julio César Briseno MD PCP - General 10/01/16 Eren Cr MD Referring Physician Medical Oncology 11/25/18 Yohana Bowen MD Radiation Oncologist Radiation Oncology 11/25/18 documented as of this encounter
--- OUTSIDE RECORDS SUMMARY | 2024-06-25 22:12 | XMS_ITS | Encounter Summary ---
Author Organization 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 Gender Identity Not on file Sexual [...] by mouth nightly 0.9 % sodium chloride ([facility] sodium chloride 0.9%) injectionIndication s:line care Infuse 10 mL into a venous catheter once a week On saturday06/20/20 24 amLODIPine (NORVASC) 5 mg tabletIndications:h ypertension Take 0.5 tablets (2.5 mg total) by mouth nightly 07/27/2022 06/11/20 23 ascorbic acid, vitamin C, 500 mg capsuleIndications: supplement Take 1 tablet by mouth product development director before breakfast 07/04/2016 06/20/20 24 ciprofloxacin-dexAM ETHasone (CIPRODEX) otic suspension Administer 4 drops into the right ear 2 (two) times a day Begin 1 week post op 7.5 mL 3 02/05/2023 06/11/20 23 clotrimazole-betame thasone (LOTRISONE) cream Apply 1 Application topically daily as needed (rash) 06/20/20 24 coenzyme U95-hnvtije E 100-5 mg-unit capsuleIndications: supplement Take 1 tablet by mouth product development director before breakfast 06/20/20 24 diphenoxylate-atrop ine (LOMOTIL) [...] -Heparin to flush 06/20/20 24 HYDROcodone-acetami nophen ([place]) 5-325 mg per tabletIndications:P ain Take 1 tablet by mouth every 6 (six) hours as needed for pain 15 tablet 02/05/2023 05/24/20 23 [facility] cabozantinib/placeb o (/[id number]) 20 mg tabletIndications:c ancer study Take 1 tablet (20 mg total) by mouth nightly Take on an empty stomach (no food for 2 hours before and 1 hour after each dose).?? Avoid Jas's Wort, grapefruit products and [place] oranges while on treatment. 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) CBC WITH AUTO DIFFERENTIAL STAT 03/07/2023 9:23 AM CDT Neuro-endocrine carcinoma (HCC) VITAMIN D 25 HYDROXY Routine 03/07/2023 9:23 AM CDT 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) PHOSPHORUS Routine 03/07/2023 9:23 AM CDT 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 Current interpretive data was last revised 2018. Creatinine Ur 181.9 mg/dL [facility] Comment: Interpretive Data No reference range established. Current interpretive data was last revised 2018. Protein/creatinin e ratio 94.0 0.0 - 180.0 mg/g CR [facility] Urine 03/07/2023 9:25 AM CDT 03/07/2023 10:04 AM CDT Eren Cr MD LAB URINE ORDERABLES Final Re sult [facility] Department [place] [address] * (ABNORMAL) eGFR (03/07/2023 9:23 AM CDT) Pathologist [facility] eGFR 45(L) 90 - 130 mL/min/1. 73 m2 [facility] Comment: Interpretive Data Reference Interval Normal [...] interpretive data was last reviewed 2021. Blood 03/07/2023 9:23 AM CDT 03/07/2023 9:25 AM CDT us Eren Cr MD LAB BLOOD ORDERABLES Final Re sult [facility] [place] [address] * (ABNORMAL) Differential, auto (03/07/2023 9:23 AM CDT) Neutrophil abs 1.6(L) 1.7 - 6.5 K/[facility]umm [facility] Comment:Testing performed by : [facility], [address] [place] [address] Imm gran abs 0.0 0.0 - 0.1 K/cumm [facility] Lymphocyte abs 0.4(L) 0.8 - 3.3 K/cumm [facility] Monocyte abs 0.4 0.2 - 0.8 K/cumm [facility] Eosinophil abs 0.2 0.0 - 0.5 K/cumm [facility] Basophil abs 0.0 0.0 - 0.1 K/cumm [facility] Neutrophil pct 62.3 % [facility] Comment: Consistent with previous result Interpretive Data Percent cell count reference ranges are not reported, since discordance with absolute values may lead to misinterpretation of CBC data. Current Interpretive Data was last revised on 2017. Imm gran pct 0.0 % [facility] Comment: Interpretive Data Percent cell count reference ranges are not reported, since discordance with absolute values may lead to misinterpretation of CBC data. Current Interpretive Data was last revised on 2017. Lymphocyte pct 16.1 % [facility] Comment: Interpretive Data Percent cell count reference ranges are not reported, since discordance with absolute values may lead to misinterpretation of CBC data. Current Interpretive Data was last revised on 2017. Monocyte pct 13.7 % [facility] Comment: Interpretive Data Percent cell count reference ranges are not reported, since discordance with absolute values may lead to misinterpretation of CBC data. Current Interpretive Data was last revised on 2017. Eosinophil pct 7.1 % [facility] Comment: Interpretive Data Percent cell count reference ranges are not reported, since discordance with absolute values may lead to misinterpretation of CBC data. Current Interpretive Data was last revised on 2017. Basophil pct 0.8 % [facility] Comment: Interpretive Data Percent cell count reference ranges are not reported, since discordance with absolute values may lead to misinterpretation of CBC data. Current Interpretive Data was last revised on 2017. Blood 03/07/2023 9:23 AM CDT 03/07/2023 9:25 AM CDT us Eren Cr MD LAB BLOOD ORDERABLES Final Re sult [facility] [place] [address] * (ABNORMAL) CBC with auto differential (03/07/2023 9:23 AM CDT) WBC 2.6(L) 3.8 - 9.9 K/cumm [facility] Comment:Testing performed by : [address] [address] Hgb 10.9(L) 11.9 - 15.5 g/dL [facility] Comment:Testing performed by : [address] [address] Hct 33.4(L) 35.6 - 45.5 % [facility] Comment:Testing performed by : [address] [address] Plt 89(L) 150 - 400 K/cumm [facility] Comment:Testing performed by : [address] [address] MPV 10.3 9.1 - 12.3 fL [facility] RBC 3.33(L) 3.90 - 5.20 M/cumm [facility] MCV 100.3(H) 81.3 - 96.4 fL [facility] MCH 32.7 27.1 - 33.3 pg [facility] MCHC 32.6 32.3 - 35.7 g/dL [facility] RDW CV 14.7 11.1 - 14.9 % [facility] RDW SD 53.5(H) 35.7 - 48.1 fL [facility] NRBC abs 0.00 0.00 - 0.01 K/cumm [facility] Blood 03/07/2023 9:23 AM CDT 03/07/2023 9:25 AM CDT Eren Cr MD LAB BLOOD ORDERABLES Final Re sult [facility] Department [place] [address] * (ABNORMAL) Comprehensive metabolic panel (03/07/2023 9:23 AM CDT) Pathologist [facility] Sodium 141 135 - 145 mmol/L [facility] Comment:Testing performed by : [facility], [address] [place] [address] Potassium, pl 4.1 3.3 - 4.9 mmol/L [facility] Chloride 108 97 - 110 mmol/L [facility] CO2 28 22 - 32 mmol/L [facility] Anion gap 5 2 - 15 mmol/L [facility] BUN 12 6 - 25 mg/dL [facility] Creatinine 1.25(H) 0.60 - 1.10 mg/dL [facility] Glucose 135 70 - 199 mg/dL [facility] Comment: Interpretive Data Fasting glucose >/= [...] 2022. Calcium 9.7 8.5 - 10.3 mg/dL [facility] Bilirubin, total 0.6 0.1 - 1.2 mg/dL [facility] Protein, pl 6.3(L) 6.5 - 8.5 g/dL [facility] Albumin 4.0 3.5 - 5.0 g/dL [facility] Alk phos 59 40 - 130 Units/L [facility] ALT 24 7 - 45 Units/L [facility] AST 34 10 - 45 Units/L [facility] Blood 03/07/2023 9:23 AM CDT 03/07/2023 9:25 AM CDT Eren Cr MD LAB BLOOD ORDERABLES Final Re sult Performing Organization Address [facility] Co de Phone Number [facility] [place] [address] * (ABNORMAL) Magnesium (03/07/2023 9:23 AM CDT) Magnesium 1.3(L) 1.4 - 2.5 mg/dL [facility] Comment:Testing performed by : [facility], [address] [place] [address] Blood 03/07/2023 9:23 AM CDT 03/07/2023 9:25 AM CDT Eren Cr MD LAB BLOOD ORDERABLES Final Re sult Performing Organization Address [facility]/ZIP Co de Phone Number [facility] [place] [address] * (ABNORMAL) Lipid panel (03/07/2023 9:23 AM CDT) Cholesterol 165 30 - 199 mg/dL [facility] Comment: Interpretive Data Ages < or [...] Data was last revised on 2018. Triglycerides 169(H) <=149 mg/dL [facility] Comment: Interpretive Data [...] Data was last revised on 2018. HDL 58 >=40 mg/dL [facility] Comment: Interpretive Data [...] was last revised on 2018. LDL, calculated 73 <=129 mg/dL [facility] Comment: Interpretive Data Ages < or [...] was last revised on 2018. Non-HDL Cholesterol 107 mg/dL [facility] Comment: Interpretive Data Ages < or [...] revised on 2018. Chol/HDL ratio 3 [facility] Blood 03/07/2023 9:23 AM CDT 03/07/2023 10:49 AM CDT Eren Cr MD LAB BLOOD ORDERABLES Final Re sult Performing Organization Address [facility] Co de Phone Number [facility] [place] [address] * (ABNORMAL) Phosphorus (03/07/2023 9:23 AM CDT) Pathologist [facility] Phosphorus, pl 1.8(L) 2.3 - 4.5 mg/dL [facility] Comment:Testing performed by : [facility], [address] [place] [address] Blood 03/07/2023 9:23 AM CDT 03/07/2023 9:25 AM CDT Eren Cr MD LAB BLOOD ORDERABLES Final Re sult Performing Organization Address [facility] Co de Phone Number [facility] [place] [address] * (ABNORMAL) Vitamin D 25 hydroxy (03/07/2023 9:23 AM CDT) [facility] Vitamin D 25-OH 19(L) 30 - 80 ng/mL [facility] Blood 03/07/2023 9:23 AM CDT 03/07/2023 10:49 AM CDT Eren Cr MD LAB BLOOD ORDERABLES Final Re sult Performing Organization Address [facility] [place] [address] * (ABNORMAL) Chromogranin A (03/07/2023 9:23 AM CDT) [facility] Chromogranin A 1552(H) <93 ng/mL [facility] Comment: Impaired renal or hepatic function or treatment with proton pump inhibitors may result in artifactual elevations of Chromogranin A. ADDITIONAL INFORMATION This test was developed and its performance characteristics determined by [facility] in a manner consistent with CLIA requirements. [...] a homogeneous time-resolved immunofluorescent assay manufactured by [employer] and performed on the [employer] Systemsor Compact Plus. ? Values obtained with different assay methods or kits may be different and cannot be used interchangeably. ? Test results cannot be interpreted as absolute evidence for the presence or absence of malignant disease. Test Performed by: [place] [address] Beauty Therapist: Immanuel Novak M.D. 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
--- OUTSIDE RECORDS SUMMARY | 2024-06-25 22:12 | XMS_ITS | Encounter Summary ---
Author Organization [facility] Home Care Servic es Address [address] [place] [address] Phone Care Team Providers Care Lumber Piler Operator Name Role Phone Julio César Briseno MD Primary Care Provider [phone] Eren Cr MD Unavailable [phone] Yohana Bowen MD Unavailable Alejo Mi MD Unavailable [phone] Encounter Details Date Type Department Care Team (Late st Contact Info) Description 03/13/2023 Home Care Visit [facility] [address] [address] [address] [place] [address] Willem Sung RN SBAR-RECERTIFICATION Social History Tobacco Use Types [...] on file 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 Gender Identity Not on file Sexual Orientation Straight 02/19/2021 9: 29 AM CDT Occupation Industry Job Start Date Job End Date retired Not on file Not on file Not on file documented as of this encounter Plan of Treatment Not on file documented as of this encounter Visit Diagnoses Not on filedocumented in this encounter Care Teams Lumber Piler Operator Relationship Specialty Start Date End Date Julio César Briseno MD PCP - General 10/01/16 Eren Cr MD Referring Physician Medical Oncology 11/25/18 Yohana Bowen MD Radiation Oncologist Radiation Oncology 11/25/18 Alejo Mi MD [address] [address] Referring Physician Nephrology 03/07/23 documented as of this encounter
--- OUTSIDE RECORDS SUMMARY | 2024-06-25 22:13 | XMS_ITS | Encounter Summary ---
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) Procedures [place] OCTREOTIDE INJECTION, DEPOT Octreotide 28 Day Cycles - Carcinoid Eren Cr MD [address] [place] [address] Phone: tel: fax: [address] [address] Phone: tel: fax: Referral ID Status Reason Start Date Expiration Date V isits Requested Visits Authorized [id number] Authorized 11/28/2017 02/05/2025 1 150 Encounter Details Date Type Department Care Team (Late st Contact Info) Description 01/10/2023 3:00 PM CDT Infusion [facility] Oncology [address] [place] [address] Neuroendocrine carcinoma (CMS/HCC) (HCC) (Primary Dx); Malignant neoplasm metastatic to liver (HCC); Neuroendocrine carcinoma (HCC); Neuro-endocrine carcinoma (HCC); Malignant [...] on file 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 female who presents for the following injection: Octreotide and Xgeva. Nursing Assessment Nursing Assessment Appetite: Fair Diarrhea: Yes Constipation: No Existing Patients: Any falls since your last visit?: No Fatigue: Constant Mouth Sores: No Nausea/Vomiting: No Neurological symptoms: No Pain: No Peripheral Neuropathy: No Pt states has potential to be ?: N/A Additional Notes: patient denies any upcoming dental work. No current jaw pain. BP: 149/76 Temp: 36.1 ??C (97 ??F) Temp src: Temporal Pulse: 82 Resp: 16 SpO2: 95 % Weight: 77.3 kg (170 lb 6.4 oz) Patient: met treatment parameters La Chung [...] mg 120 mg, subcutaneous, Once, On Lydia 01/10/23 at 1215, For 1 dose, Calcium level should be greater than 8 mg/dl Administer injection in upper arm, abdomen or upper thigh Refrigerate. 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 For IM intragluteal administration only- alternate gluteal sites. 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) Given 01/10/2023 11:52 AM CDT 30 mg Left Dorsogluteal/Butto ck documented in this encounter Orders Medications Ordered That Brett ht Not Have Been Administered Count Last Ordered Date First Ordered Date [facility] cabozantinib/pl acebo (/[id number]) tablet 20 mg 1 01/10/2023 Nursing Count Last Ordered Date First Orde red Date ONCBCN NURSING COMMUNICATION [id number] 1 01/10 ONCBCN NURSING COMMUNICATION [id number] 1 0 01/10/2023 ONCBCN OK TO TREAT 1 01/10/2023 ONCBCN PROVIDER COMMUNICATION 10 1 01/11/20 ONCBCN STUDY COMMUNICATION 2 1 01/10/2023 ONCBCN TREATMENT PARAMETERS 1 1 01/10/2023 PHYSICIAN COMMUNICATION ORDER 1 01/10/2023 RESEARCH STUDY CLARIFICATION ORDER 1 2022 Appointment Requests Count Last Ordered Date Fi rst Ordered Date ONCBCN INJECTION APPOINTMENT REQUEST 1 12/2022 documented in this encounter Care Teams Counterintelligence Specialist Relationship Specialty Start Date End Date Julio César Briseno MD PCP - General 10/01/16 Eren Cr MD Referring Physician Medical Oncology 11/25/18 Yohana Bowen MD Radiation Oncologist Radiation Oncology 11/25/18 documented as of this encounter
--- OUTSIDE RECORDS SUMMARY | 2024-06-25 22:13 | XMS_ITS | Encounter Summary ---
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 Gender Identity Not on file Sexual Orientation Straight 02/19/2021 9: 29 AM CDT Occupation Industry Job Start Date Job End Date retired Not on file Not on file Not on file documented as of this encounter Last Filed Vital Signs Vital Sign Reading Time Taken Comments Blood Pressure 132/60 01/09/2023 9:10 AM CDT Pulse 61 01/09/2023 9:10 AM CDT Temperature 36.2 ??C (97.1 ??F) 01/09/2023 9:10 AM CD T Respiratory Rate 14 01/09/2023 9:10 AM CDT Oxygen Saturation 97% 01/09/2023 9:10 AM CDT Inhaled Oxygen Concentration - - Weight - - Height 160 cm (5' 3 ) 01/09/2023 9:10 AM CDT Body Mass Index - - documented in this encounter Miscellaneous Notes * Home Health Visit Narrative - Yo Santiago RN - 01/09/2023 12:00 AM CDT Patient Covid screen performed [...] Dose Rate Site 0.9 % sodium chloride ([facility] sodium chloride 0.9%) injection 10 mL, intravenous, Weekly, First dose on Sat01/10/23 at 1330, On saturday, Indications: line careIndications:line care Given 01/09/2023 9:40 AM CDT 10 mL Port sodium chloride 0.9 % solution 1,000 mL, intravenous, Weekly, First dose on Sat01/10/23 at 1330, Patient to infuse 1000mL of Normal Saline via CADD Coreas pump set at 300mL/Hr once weekly.- Saturday, Indications: hydrationIndications:hydration Given 01/09/2023 9:45 AM CDT 1,000 mL Port documented in this encounter Home Health Visit - Care Plan Visit Details Visit Type -SN Non-OASIS Rec ert Discipline -Fdc Problems Problem Description Start Date Status Goals Interventions Safety concerns Disciplines: Fdc Safety needs related to infusion administration 11/14/2022 Active - 1 problem intervention scheduled/documen omar in this visit Learning/Teachin g Needs - IV Therapy Disciplines: Fdc Teaching and learning needs for performing home IV therapy 11/14/2022 Active - 7 problem interventions scheduled/documen omar in this visit Monitor patient's vital signs every home health visit Disciplines: SN, PT, OT, SHIP SELF DEFENSE SYSTEM MK1 OPERATOR, FOOD AND BEVERAGE MANAGER, Skilled Disciplines Monitor patient's vital signs every [...] visit during episode of care Description: Home optical mechanic apprentice to measure vital signs during every home [...] and infusion service Problem:Safety concerns Completed Instructed patient on signs/symptoms of complications, who to contact for complications and how to contact the nurse, MD and infusion service Patient verbalized understanding. Instruct on IV supplies Description: Instruct patient/caregiver in how to gather supplies, how to restock IV supplies in the home, prepare supplies, administer IV medication and disconnect IV medication, inspecting solution and supplies before infusing, and waste disposal. Problem:Learning/Teac soco Needs - IV Therapy Completed Instructed patient in how to gather supplies, how to restock IV supplies in the home, prepare supplies, administer IV medication and disconnect IV medication, inspecting solution and supplies before infusing, and waste disposal. Patient verbalized understanding. Instruct Infection Prevention Description: Instruct patient/caregiver in strategies to prevent infection. Instruct patient/caregiver on how to recognize signs and symptoms of infection and when to notify HH nurse and/or physician. Problem:Learning/Teac soco Needs - IV Therapy Completed Patient instructed on frequent/proper hand-washing techniques, [place] precautions, avoid crowds and persons with known [...] to properly administer medication saline and heparin. Patient verbalized understanding. Reason for Therapy: Iv hydration. IV Access [...] Needs - IV Therapy Completed Skilled Nurse accessed implanted port using aseptic technique and verified patency. Patient/caregiver to deaccess port upon completion of infusion of IV fluids and heparin flush. Instruct on IV flush Description: Instruct patient/caregiver in how to perform flushing of IV line according to MD orders or protocol. Problem:Learning/Teac soco Needs - IV Therapy Completed Instructed patient/caregiver in how to perform flushing of IV line according to MD orders or protocol. Patient verbalized understanding. IV Discontinuation Description: Instruct patient/caregiver on how to remove peripheral IV after last infusion per MD order or instruct on process of removal of Central Venous Catheter if it is to be removed in the home after infusion therapy is completed by Skilled Nurse. Problem:Learning/Teac soco Needs - IV Therapy Completed Instructed patient/caregiver on how to deaccess port after infusion completion and flusing with NS and heparin per MD order. Patient and caregiver verbalize understanding Dressing change [...] and symptoms of infection. Patient verbalized understanding. Aspects of Care Description: Instruct patient/caregiver on universal precautions and home infection control measures Problem:Infection Prevention Goal:Verbalize signs of infection Completed Instructed patient on universal precautions and home infection control measures Patient verbalized understanding.] Educate Family on Infection Prevention Description: Instructed family on signs and symptoms of infection IE: fever, odor, change in color, increased amount of drainage, purulent drainage, warmth. Problem:Infection Prevention Goal:Verbalize signs of infection Scheduled Instruct Fall Prevention Description: Instruct patient/caregiver in methods to prevent falls Problem:Safety concerns Goal:Demonstrate use of safety precautions Completed Instructed patient in methods to prevent falls Patient verbalized understanding. Assess safety Description: Assess patient safety Problem:Safety concerns Goal:Demonstrate use of safety precautions Completed Patient verbalized no safety concerns. documented in this encounter Care Teams Chief Service Observer Relationship Specialty Start Date End Date Julio César Briseno MD PCP - General 10/01/16 Eren Cr MD Referring Physician Medical Oncology 11/25/18 Yohana Bowen MD Radiation Oncologist Radiation Oncology 11/25/18 documented as of this encounter
--- OUTSIDE RECORDS SUMMARY | 2024-06-25 22:13 | XMS_ITS | Encounter Summary ---
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) Neuroendocrine carcinoma (HCC) Procedures CT chest abdomen pelvis with contrast Eren Cr MD [address] [place] [address] Phone: tel: fax: [facility] Referral ID Status Reason Start Date Expiration Date Visits Re quested Visits Authorized [id number] Closed 02/07/2023 03/08/2024 1 1 Reason for Visit * Episode Based Medications (Routine) - Authorized Specialty Diagnoses / Procedures [facility] Referred To Contact Oncology Diagnoses 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) Procedures [place] OCTREOTIDE INJECTION, DEPOT Octreotide 28 Day Cycles - Carcinoid Eren Cr MD [address] [facility] [address] [place] [address] Phone: tel: fax: [facility] [address] [place] [address] Phone: tel: fax: Referral ID Status Reason Start Date Expiration Date V isits Requested Visits Authorized [id number] Authorized 11/28/2017 02/05/2025 1 150 Encounter Details Date Type Department Care Team (Late st Contact Info) Description 02/07/2023 2:00 PM CDT Office Visit [facility] Oncology [address] [place] [phone] Eren Cr MD [address] [facility] [address] [place] [address] Neuro-endocrine carcinoma (HCC) (Primary Dx); Malignant neoplasm [...] on file 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 Gender Identity Not on file Sexual Orientation Straight 02/19/2021 9: 29 AM CDT Occupation Industry Job Start Date Job End Date retired Not on file Not on file Not on file documented as of this encounter Last Filed Vital Signs Vital Sign Reading Time Taken Comments Blood Pressure 107/67 02/07/2023 1:50 PM CDT Pulse 75 02/07/2023 1:50 PM CDT Temperature 36.2 ??C (97.2 ??F) 02/07/2023 1:50 PM CD T Respiratory Rate 16 02/07/2023 1:50 PM CDT Oxygen Saturation 97% 02/07/2023 1:50 PM CDT Inhaled Oxygen Concentration - - Weight 77.6 kg (171 lb) 02/07/2023 1:50 PM CDT Height - - Body Mass Index 30.29 01/09/2023 9:10 AM CDT documented in this encounter Progress Notes * Angel Morales, CECILIA - 02/07/2023 2:00 PM CDT Images from the original note were not included. MEDICAL ONCOLOGY OUTPATIENT ROV NOTE DATE OF VISIT: 02/07/2023 DIAGNOSIS: well differentiated neuroendocrine tumor of ileum [...] cabozantinib/placebo daily. She comes today for cycle 20 day 1. She noticed vaginal bleeding yesterday (a couple stains on a sanitary pad) after lifting a heavy object, scant overnight last night and no bleeding since then. She is planning for an ear surgery tomorrow. She reports feeling well today. She reports with a few scattered bruises to the left and right arms, baseline grade 1 shortness of breath and restless leg syndrome, all stable. She reports no longer having difficulty with concentration. She reports a stable energy level and appetite. She denies rash, fever, chills, cough, chest pain, palpitations, mucositis, dysuria, flank pain, foul smelling urine, worsening fatigue, new or worsening peripheral edema, new or worsening peripheral neuropathy, persistent or worsening headaches, weakness, vision change, new or worsening pain, hematuria, hematochezia, melena, hemoptysis, hematemesis. REVIEW OF SYSTEMS: A complete review of systems was performed and positive and pertinent negative responses are documented in the history of present illness All other systems were negative. PHYSICAL EXAM: ECOG PS: 1 VITALS: BP 107/67 Pulse 75 Temp 36.2 ??C (97.2 ??F) (Temporal) Resp 16 Wt 77.6 kg (171 lb) SpO2 97% BMI 30.29 kg/m?? GEN: Calm, conversant, well-appearing female in no apparent distress. HEENT: PERRL, sclerae anicteric and non-injected, LYMPH: No cervical, supraclavicular lymphadenopathy CV: RRR, no m/r/g PULM/CHEST: Clear to auscultation bilaterally. No wheezes or rales. Unlabored breathing. ABD: Soft, non tender, non distended, bowel sounds present. Well healed abdominal surgical scars. Ostomy in LLQ, stoma pink. EXT: No LE edema, warm and well-perfused SKIN: No rashes over exposed skin. Scattered bruises to arms. NEURO: A&Ox4, building services coordinator grossly intact by conversation, moving all extremities well, no focal deficits appreciated PSYCH: Mood euthymic, affect appropriate and congruent, speech clear and goal-directed LABORATORY: I personally reviewed all laboratories and discussed with patient during office visit, selected values included below. Hematology Lab History Latest Ref Rng & Units 11/15/2022 13:30 12/13/2022 10:07 01/10/2023 09:26 02/07/2023 13:39 Labs - Hematology WBC 3.8 - 9.9 K/cumm 3.5 2.8 2.8 3.1 Total Hb, POC 11.9 - 15.5 g/dL 10.7 10.9 11.2 11.3 Hct 35.6 - 45.5 % 32.4 33.0 33.7 34.9 Plt 150 - 400 K/cumm 98 85 93 95 Neutrophil abs 1.7 - 6.5 K/cumm 2.1 1.8 1.9 1.9 Lymphocytes, abs 0.8 - 3.3 K/cumm 0.5 0.4 0.3 0.5 Chem/LFT Lab History Latest Ref Rng & Units 12/12/2022 16:08 12/13/2022 10:07 01/10/2023 09:26 02/07/2023 13:39 Labs-Chem/LFT Sodium 135 - 145 mmol/L 140 138 140 Creatinine 0.60 - 1.10 mg/dL 1.43 1.37 1.30 Bilirubin, total 0.1 - 1.2 mg/dL 0.4 0.5 0.5 AST 10 - 45 Units/L 32 36 29 ALT 7 - 45 Units/L 20 24 21 CrCl- Actual Body Weight (Cockcroft-Gault) 36.9 41.9 44 46.5 Tumor Marker History Latest Ref Rng & Units 10/18/2022 10:46 11/15/2022 13:30 12/13/2022 10:07 01/10/2023 09:26 Tumor Markers Chromogranin A <93 ng/mL 1393 1170 1630 1326 RADIOGRAPHIC/DIAGNOSTIC REVIEW: CT chest abdomen pelvis with contrast 12/13/2022 [...] care. 1. Metastatic neuroendocrine tumor with metastases -Her last CT scans were done on 12/13/2022 showing stable disease per RECIST. -She continues on Octreotide LAR 30 mg;due for injection today. - We reviewed her labs today hemoglobin 11.3, platelets 95 K, ANC 1.9, creatinine 1.3. - We will plan to proceed with cycle 20 day 1 of CABINET study, however for this cycle she will start 3 days after her ear surgery (deviation for surgery approved with sponsor per CARLOS Soliz) Will continue on 20 mg dosing of cabozantinib/placebo. She is agreeable to proceed with treatment. - Chromogranin A 1326 on 01/10/23 - She will return for follow up in 4 weeks per protocol. 2. Bone metastases: - on Xgeva, will hold today per Dr. Cr for Phos 2.1 today; Ca 10, and Creatinine 1.3 3. Diarrhea - prn immodium and lomotil 4. Hypothyroidism with TSH elevated - continue levothyroxine at 88 mcg daily - TSH 8.7, Free T4 1.23 on 01/10/23 5. Vitamin D insufficiency/Deficiency: - 2000 international units daily recommended per nephrology - Vitamin D 24 on 01/10/23 6. Renal function - creatinine 1.3 -follows with Nephrology 7. Right TM perforation - Follow up with ENT, surgery planned 8. Hyperparathyroidism - Calcium 10.0 - may be secondary to CKD, denosumab use. - On vit d supplementation. - nephrology following. 9. Vaginal bleeding - Occurred yesterday x 2 after lifting a heavy chair, now resolved - Follow up with [facility] (has already discussed with them) All of her and questions were answered to their satisfaction and they verbalized understanding. 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 Current interpretive data was last revised 2018. Creatinine Ur 181.9 mg/dL [facility] Comment: Interpretive Data No reference range established. Current interpretive data was last revised 2018. Protein/creatinin e ratio 94.0 0.0 - 180.0 mg/g CR [facility] Urine 03/07/2023 9:25 AM CDT 03/07/2023 10:04 AM CDT us Eren Cr MD LAB URINE ORDERABLES Final Re sult [facility] Department [place] [address] * (ABNORMAL) Chromogranin A (03/07/2023 9:23 AM CDT) Chromogranin A 1552(H) <93 ng/mL [facility] Comment: Impaired renal or hepatic function or treatment with proton pump inhibitors may result in artifactual elevations of Chromogranin A. ADDITIONAL INFORMATION This test was developed and its performance characteristics determined by [facility] in a manner consistent with CLIA [...] a homogeneous time-resolved immunofluorescent assay manufactured by [employer] and performed on the [employer] Kryptor Compact Plus. ? Values obtained with different assay methods or kits may be different and cannot be used interchangeably. ? Test results cannot be interpreted as absolute evidence for the presence or absence of malignant disease. Test Performed by: [place] [address] Drop Board Worker: Immanuel Novak M.D. Ph.D.; CLIA# [id number] Blood 03/07/2023 9:23 AM CDT 03/07/2023 10:06 AM CDT us Eren Cr MD LAB BLOOD ORDERABLES Final Re sult [facility] Department [place] [address] * (ABNORMAL) Vitamin D 25 hydroxy (03/07/2023 9:23 AM CDT) Vitamin D 25-OH 19(L) 30 - 80 ng/mL [facility] Blood 03/07/2023 9:23 AM CDT 03/07/2023 10:49 AM CDT Erne Cr MD LAB BLOOD ORDERABLES Final Re sult [facility] Department [place] [address] * (ABNORMAL) Phosphorus (03/07/2023 9:23 AM CDT) Phosphorus, pl 1.8(L) 2.3 - 4.5 mg/dL [facility] Comment:Testing performed by : [facility], [address] [place] [id number] Blood 03/07/2023 9:23 AM CDT 03/07/2023 9:25 AM CDT Eren Cr MD LAB BLOOD ORDERABLES Final Re sult Performing Organization Address City/[facility]/ZIP Co de Phone Number [facility] Department [place] [address] * (ABNORMAL) Lipid panel (03/07/2023 9:23 AM CDT) Cholesterol 165 30 - 199 mg/dL [facility] Comment: Interpretive Data Ages < [...] on 2018. Triglycerides 169(H) <=149 mg/dL [facility] Comment: Interpretive Data Ages < or [...] revised on 2018. HDL 58 >=40 mg/dL [facility] Comment: Interpretive Data Ages < [...] on 2018. LDL, calculated 73 <=129 mg/dL [facility] Comment: Interpretive Data Ages < or [...] revised on 2018. Non-HDL Cholesterol 107 mg/dL [facility] Comment: Interpretive Data Ages [...] last revised on 2018. Chol/HDL ratio 3 [facility] Blood 03/07/2023 9:23 AM CDT 03/07/2023 10:49 AM CDT us Eren Cr MD LAB BLOOD ORDERABLES Final Re sult [facility] Department [place] [address] * (ABNORMAL) Magnesium (03/07/2023 9:23 AM CDT) Magnesium 1.3(L) 1.4 - 2.5 mg/dL [facility] Comment:Testing performed by : [facility], [address] [place] [id number] Blood 03/07/2023 9:23 AM CDT 03/07/2023 9:25 AM CDT us Eren Cr MD LAB BLOOD ORDERABLES Final Re sult [facility] Department [place] [address] * (ABNORMAL) Comprehensive metabolic panel (03/07/2023 9:23 AM CDT) Pathologist [facility] [place] Sodium 141 135 - 145 mmol/L [facility] Comment:Testing performed by : [facility], [address] [place] [id number] Potassium, pl 4.1 3.3 - 4.9 mmol/L [facility] Chloride 108 97 - 110 mmol/L [facility] CO2 28 22 - 32 mmol/L [facility] Anion gap 5 2 - 15 mmol/L [facility] BUN 12 6 - 25 mg/dL [facility] Creatinine 1.25(H) 0.60 - 1.10 mg/dL [facility] Glucose 135 70 - 199 mg/dL [facility] Comment: Interpretive Data Fasting glucose [...] 2022. Calcium 9.7 8.5 - 10.3 mg/dL [facility] Bilirubin, total 0.6 0.1 - 1.2 mg/dL [facility] Protein, pl 6.3(L) 6.5 - 8.5 g/dL [facility] Albumin 4.0 3.5 - 5.0 g/dL [facility] Alk phos 59 40 - 130 Units/L [facility] ALT 24 7 - 45 Units/L [facility] AST 34 10 - 45 Units/L [facility] Blood 03/07/2023 9:23 AM CDT 03/07/2023 9:25 AM CDT us Eren Cr MD LAB BLOOD ORDERABLES Final Re sult [facility] Department [place] [address] * (ABNORMAL) CBC with auto differential (03/07/2023 9:23 AM CDT) WBC 2.6(L) 3.8 - 9.9 K/cumm [facility] Comment:Testing performed by : [address] [address] Hgb 10.9(L) 11.9 - 15.5 g/dL [facility] Comment:Testing performed by : [address] [address] Hct 33.4(L) 35.6 - 45.5 % [facility] Comment:Testing performed by : [address] [address] Plt 89(L) 150 - 400 K/cumm [facility] Comment:Testing performed by : [address] [address] MPV 10.3 9.1 - 12.3 fL [facility] RBC 3.33(L) 3.90 - 5.20 M/cumm [facility] MCV 100.3(H) 81.3 - 96.4 fL [facility] MCH 32.7 27.1 - 33.3 pg [facility] MCHC 32.6 32.3 - 35.7 g/dL [facility] RDW CV 14.7 11.1 - 14.9 % [facility] RDW SD 53.5(H) 35.7 - 48.1 fL [facility] NRBC abs 0.00 0.00 - 0.01 K/cumm [facility] Blood 03/07/2023 9:23 AM CDT 03/07/2023 9:25 AM CDT us Eren Cr MD LAB BLOOD ORDERABLES Final Re sult [facility] Department [place] [address] * CT chest abdomen pelvis with contrast [...] Date ONCBCN CLINIC APPOINTMENT REQUEST 3 023 02/07/2023 ONCBCN INJECTION APPOINTMENT REQUEST 1 02/07 ON[facility]N LAB APPOINTMENT 1 03/07/2023 ONCBCN TAKE HOME STUDY DRUG APPT 1 03/07/20 23 documented in this encounter Care Teams Wellhead Pumper Relationship Specialty Start Date End Date Julio César Briseno MD PCP - General 10/01/16 Eren Cr MD Referring Physician Medical Oncology 11/25/18 Yohana Bowen MD Radiation Oncologist Radiation Oncology 11/25/18 documented as of this encounter
--- OUTSIDE RECORDS SUMMARY | 2024-06-25 22:13 | XMS_ITS | Encounter Summary ---
Author Organization [facility] Address [address] [place] [address] Phone Care Team Providers Care Fondant Puff Maker Name Role Phone Julio César Briseno MD Primary Care Provider [phone] Eren Cr MD Unavailable Yohana Bowen MD Unavailable Reason for Visit * Episode Based Medications (Routine) - Closed Specialty Diagnoses / Procedures Referred By Evelyne bowman Referred To Contact Diagnoses Neuro-endocrine carcinoma (HCC) Procedures study [id number] phase III cabozantinib Eren Cr MD [address] [facility] [address] [place] [address] Phone: tel: fax: [facility] [address] [facility] Advanced Medicine 7th [place] [address] Phone: tel: Referral ID Status Reason Start Date Expiration Date Visits Re quested Visits Authorized [id number] Closed 06/21/2021 06/26/2024 1 99 Encounter Details Date Type Department Care Team (Latest Contact Info) Description 12/13/2022 11:15 AM CDT Research Med Pick-Up/CTRU Produce Runner [facility] [address] [place] [address], [place] [address] Neuro-endocrine carcinoma (HCC) (Primary Dx) Social History Tobacco Use Types Packs/Day Years Used Date Smoking Tobacco: Never Smokeless Tobacco: Never Alcohol Use Standard Drinks/Week Comments Yes 1 (1 standard drink = 0.6 oz pur e alcohol) OASIS A1250: Transportation Answer Date Recorded Lack [...] on file 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 Unable to assess 11/13/2022 9:18 AM CDT documented as of this encounter Plan of Treatment Not on file documented as of this encounter Visit Diagnoses Diagnosis Neuro-endocrine carcinoma (HCC)- Primary Other malignant neoplasm of unspecified site documented in this encounter Orders Medications Ordered That Brett ht Not Have Been Administered Count Last Ordered Date First Ordered Date [facility] cabozantinib/pl acebo (/[id number]) tablet 20 mg 1 12/13/2022 Nursing Count Last Ordered Date First Orde red Date ONCBCN STUDY COMMUNICATION 2 1 12/13/2022 ONCBCN TREATMENT PARAMETERS 1 1 12/13/2022 RESEARCH STUDY CLARIFICATION ORDER 1 2022 Appointment Requests Count Last Ordered Date Fi rst Ordered Date ONCBCN TAKE HOME STUDY DRUG APPT 1 12/14/19 23 documented in this encounter Care Teams Fondant Puff Maker Relationship Specialty Start Date End Date Julio César Briseno MD PCP - General 10/01/16 Eren Cr MD Referring Physician Medical Oncology 11/25/18 Yohana Bowen MD Radiation Oncologist Radiation Oncology 11/25/18 documented as of this encounter
--- OUTSIDE RECORDS SUMMARY | 2024-06-25 22:13 | XMS_ITS | Encounter Summary ---
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 Gender Identity Not on file Sexual Orientation Straight 02/19/2021 9: 29 AM CDT Occupation Industry Job Start Date Job End Date retired Not on file Not on file Not on file documented as of this encounter Last Filed Vital Signs Vital Sign Reading Time Taken Comments Blood Pressure 124/82 12/19/2022 12:30 PM CDT Pulse 72 12/19/2022 12:30 PM CDT Temperature 36.7 ??C (98.1 ??F) 12/19/2022 12:30 PM C DT Respiratory Rate 17 12/19/2022 12:30 PM CDT Oxygen Saturation 98% 12/19/2022 12:30 PM CDT Inhaled Oxygen Concentration - - Weight - - Height - - Body Mass Index - - documented in this encounter Miscellaneous Notes * Home Health Plan for Next Visit - Sherlyn Orozco RN - 12/23/2022 1:26 PM CDT Reason for today's visit assessment, instruction,port access Discuss plan of care with pt verb good understanding Discharge planning indef Plan for next visit weekly assessment, instruction, port access documented in this encounter Plan of Treatment Not on file documented as of this encounter Visit Diagnoses Not on filedocumented in this encounter Home Health Visit - Care Plan Visit Details Visit Type -SN Home Visit Discipline -Detention Problems Problem Description Start Date Status Goals Interventions Safety concerns Disciplines: Detention Safety needs related to infusion administration 11/14/2022 Active - 1 problem intervention scheduled/documen omar in this visit Learning/Teachin g Needs - IV Therapy Disciplines: Detention Teaching and learning needs for performing home IV therapy 11/14/2022 Active - 6 problem interventions scheduled/documen omar in this visit Monitor patient's vital signs every home health visit Disciplines: SN, PT, OT, EQUINE PHARMACOLOGY TECHNICIAN, CNA HHA, Skilled Disciplines Monitor patient's vital signs every [...] visit during episode of care Description: Home mobile development manager to measure vital signs during every [...] Problem:Learning/Teac soco Needs - IV Therapy Completed pt verb good understanding of infection prevention including proper hand washing and use of universal precaution IV Access Care/Maintenance Description: Skilled Nurse to [...] steri strips and cover with occlusive dressing. change clave with each port reaccess. flush per med list with ns and heparin. cover clave with alcohol swab cap Instruct [...] Scheduled documented in this encounter Care Teams Burglar Alarm Assembler Relationship Specialty Start Date End Date Julio César Briseno MD PCP - General 10/01/16 Eren Cr MD Referring Physician Medical Oncology 11/25/18 Yohana Bowen MD Radiation Oncologist Radiation Oncology 11/25/18 documented as of this encounter
--- OUTSIDE RECORDS SUMMARY | 2024-06-25 22:13 | XMS_ITS | Encounter Summary ---
Author Organization [facility] Healthcare Address [address] [place] [address] Care Team Providers Care Political Geographer Name Role Phone Julio César Briseno MD Primary Care Provider [phone] Eren Cr MD Unavailable [phone] Yohana Bowen MD Unavailable Reason for Referral * MRI/CAT/PET Scan (Routine) - Closed Specialty Diagnoses / Procedures Referred By Evelyne bowman Referred To Contact Radiology Diagnoses Neuroendocrine carcinoma (HCC) Procedures CT chest abdomen pelvis with contrast Eren Cr MD [address] [address] [address] Phone: tel: fax: [facility] Referral ID Status Reason Start Date Expiration Date Visits Re quested Visits Authorized [id number] Closed 12/13/2022 01/12/2024 1 1 Reason for Visit * MRI/CAT/PET Scan (Routine) - Closed Specialty Diagnoses / Procedures Referred By Evelyne bowman Referred To Contact Radiology Diagnoses Neuroendocrine carcinoma (HCC) Procedures CT chest abdomen pelvis with contrast Eren Cr MD [address] [place] [address] Phone: tel: fax: [facility] Referral ID Status Reason Start Date Expiration Date Visits Re quested Visits Authorized [id number] Closed 12/13/2022 01/12/2024 1 1 Encounter Details Date Type Department Care Team (Latest Contact Info) Description 12/13/2022 2:26 PM CDT - 12/13/2022 11:59 PM CDT Hospital Encounter [facility] Radiology at [facility] [address] [place] [address] Neuroendocrine carcinoma (HCC) Discharge Disposition: Discharge to [...] on file 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 Gender Identity Not on file Sexual Orientation [...] AM CDT documented as of this encounter Medications at [...] by mouth nightly 0.9 % sodium chloride ([facility] sodium chloride 0.9%) injectionIndication s:line care Infuse 10 mL into a venous catheter once a week On saturday06/20/20 24 amLODIPine (NORVASC) 5 mg tabletIndications:h ypertension Take 0.5 tablets (2.5 mg total) by mouth nightly 07/27/2022 06/11/20 23 ascorbic acid, vitamin C, 500 mg capsuleIndications: supplement Take 1 tablet by mouth artificial flowers starcher before breakfast 07/04/2016 06/20/20 24 clotrimazole-betame thasone (LOTRISONE) cream Apply 1 Application topically daily as needed (rash) 06/20/20 24 coenzyme [id number] E 100-5 mg-unit capsuleIndications: supplement Take 1 tablet by mouth artificial flowers starcher before breakfast 06/20/20 24 diphenoxylate-atrop ine (LOMOTIL) [...] Fluids every -Heparin to flush 06/20/20 24 [facility] cabozantinib/placeb o (/[id number]) 20 mg tabletIndications:c ancer study Take 1 tablet (20 mg total) by mouth nightly Take on an empty stomach (no food for 2 hours before and 1 hour after each dose).?? Avoid Padroni's Wort, grapefruit products and [place] oranges while on treatment. 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 Take 1 tablet (88 mcg total) by mouth artificial flowers starcher before breakfast 90 tablet 1 10/12/2022 09/12/19 [...] CONTRAST Schedule Routine, Read Routine (OP Routine) 12/13/2022 2:44 PM CDT Neuroendocrine carcinoma (HCC) documented in this encounter Results * CT chest abdomen pelvis with contrast (12/13/2022 2:44 PM CDT) Anatomical Region Laterality Modality Body N/A Computed Tomogra phy 12/13/2022 3:17 PM CDT Impressions 12/13/2022 3:17 PM CDT 1. ??Stable hepatic lesions and peritoneal deposits. 2. ??Subtle upper lung predominant subcentimeter nodularity, which could represent bronchiolitis. ??Attention on follow-up study. Electronically signed by: Frantz Valera M.D. Narrative 12/13/2022 3:17 PM CDT EXAMINATION: CT of the chest, abdomen and pelvis with intravenous contrast. TECHNIQUE: Computed axial tomographic images of the chest, abdomen and pelvis were obtained with intravenous contrast according to standard protocol. ??There were no immediate complications after the intravenous administration of 100 cc optiray 350. HISTORY: Metastatic neuroendocrine cancer COMPARISON: 09/05/2022 FINDINGS: Scattered subcentimeter pulmonary nodules in the lungs, upper lung predominant are noted, not clearly seen on the prior study. ??This could represent mild bronchiolitis. ??No suspicious solid pulmonary nodules are seen. ??No pneumothorax or pleural effusion Unchanged subcentimeter mediastinal and right supraclavicular lymph nodes. ??No new thoracic lymphadenopathy. ??Heart size stable. ??No pericardial effusion. ??Right chest wall port catheter terminates at the superior tracheal junction. 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 ??Unchanged thickening of the thoracic esophagus above the level of the aberrant subclavian artery which could represent dysphagia related to vascular compression Numerous hepatic lesions appear not appreciably changed. ??For reference, a 2.3 cm left hepatic lobe lesion on image 120 and a 2 cm lesion in segment 7 on image 117. ??No new focal hepatic lesion or intrahepatic bile duct dilatation. ??Gallbladder surgically absent. Adrenals, spleen, pancreas, kidneys appear unchanged Urinary bladder is under distended. ??Postsurgical changes from hysterectomy are noted. ??Unchanged deposit along the vaginal cuff measuring approximately 3 x 2.5 cm. ??Additional metastatic deposits in the peritoneum appear unchanged. ??Stable nodularity anterior to the lower inferior vena cava on image 194. No intraperitoneal free air or intraperitoneal drainable fluid collection. ??Atherosclerosis of the aorta iliac system but no abdominal aortic aneurysm. Postoperative findings from right hemicolectomy and diverting colostomy are redemonstrated. ??No bowel obstruction. ??Unchanged appearance of the sigmoid colon. Bone windows do not demonstrate any new suspicious osseous lesion. Bone windows do not demonstrate any new suspicious osseous lesion. Procedure Note Frantz Valera MD - 12/13/2022 EXAMINATION: CT of the chest, abdomen and pelvis with intravenous contrast. TECHNIQUE: Computed axial tomographic images of the chest, abdomen and pelvis were obtained with intravenous contrast according to standard protocol. There were no immediate complications after the intravenous administration of 100 cc optiray 350. HISTORY: Metastatic neuroendocrine cancer COMPARISON: 09/05/2022 FINDINGS: Scattered subcentimeter pulmonary nodules in the lungs, upper lung predominant are noted, not clearly seen on the prior study. This could represent mild bronchiolitis. No suspicious solid pulmonary nodules are seen. No pneumothorax or pleural effusion Unchanged subcentimeter mediastinal and right supraclavicular lymph nodes. No new thoracic lymphadenopathy. Heart size stable. No pericardial effusion. Right chest wall port catheter terminates at the superior tracheal junction. 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 Unchanged thickening of the thoracic esophagus above the level of the aberrant subclavian artery which could represent dysphagia related to vascular compression Numerous hepatic lesions appear not appreciably changed. For reference, a 2.3 cm left hepatic lobe lesion on image 120 and a 2 cm lesion in segment 7 on image 117. No new focal hepatic lesion or intrahepatic bile duct dilatation. Gallbladder surgically absent. Adrenals, spleen, pancreas, kidneys appear unchanged Urinary bladder is under distended. Postsurgical changes from hysterectomy are noted. Unchanged deposit along the vaginal cuff measuring approximately 3 x 2.5 cm. Additional metastatic deposits in the peritoneum appear unchanged. Stable nodularity anterior to the lower inferior vena cava on image 194. No intraperitoneal free air or intraperitoneal drainable fluid collection. Atherosclerosis of the aorta iliac system but no abdominal aortic aneurysm. Postoperative findings from right hemicolectomy and diverting colostomy are redemonstrated. No bowel obstruction. Unchanged appearance of the sigmoid colon. Bone windows do not demonstrate any new suspicious osseous lesion. Bone windows do not demonstrate any new suspicious osseous lesion. IMPRESSION: 1. Stable hepatic lesions and peritoneal deposits. 2. Subtle upper lung predominant subcentimeter nodularity, which could represent bronchiolitis. Attention on follow-up study. Electronically signed by: Frantz Valera M.D. Eren [...] 500 Units (5 mL), intra-catheter, Once, On Lydia 12/13/22 at 1515, For 1 dose Given 12/13/2022 2:48 PM CDT 500 Units ioversoL (OPTIRAY 350) injection 75 mL 75 mL, intravenous, Once in imaging, contrast, Starting on Lydia 12/13/22 at 1437, For 1 dose Contrast Given 12/13/2022 2:38 PM CDT 75 mL documented in this encounter Care Teams Political Geographer Relationship Specialty Start Date End Date Julio César Briseno MD PCP - General 10/01/16 Eren Cr MD Referring Physician Medical Oncology 11/25/18 Yohana Bowen MD Radiation Oncologist Radiation Oncology 11/25/18 documented as of this encounter
--- OUTSIDE RECORDS SUMMARY | 2024-06-25 22:13 | XMS_ITS | Encounter Summary ---
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 Gender Identity Not on file Sexual Orientation Straight 02/19/2021 9: 29 AM CDT Occupation Industry Job Start Date Job End Date retired Not on file Not on file Not on file documented as of this encounter Last Filed Vital Signs Vital Sign Reading Time Taken Comments Blood Pressure 138/72 01/02/2023 11:10 AM CDT Pulse 86 01/02/2023 11:10 AM CDT Temperature 36.7 ??C (98.1 ??F) 01/02/2023 11:10 AM C DT Respiratory Rate 16 01/02/2023 11:10 AM CDT Oxygen Saturation 98% 01/02/2023 11:10 AM CDT Inhaled Oxygen Concentration - - Weight 77.1 kg (170 lb) 01/02/2023 11:10 AM CDT Height - - Body Mass Index 30.11 12/26/2022 10:08 AM CDT documented in this encounter Miscellaneous Notes * Home Health Visit Narrative - Mj Lima RN - 01/02/2023 11:03 AM CDT Port a cath access at this time. Pt tolerated well. , Alejo, verbalizes and demonstrates good understanding of Port-a-cath maintenance in the home. All vital signs fall within acceptable parameters and the patient is free of distress. * Home Health Plan for Next Visit - Mj Lima RN - 01/02/2023 11:03 AM CDT Reason for today's visit: Port a cath access/IVF initiation Discuss plan of care with the patient Discharge planning -- none at this time Plan for next visit in one week for same documented in this encounter Plan of Treatment Not on file documented as of this encounter Visit Diagnoses Not on filedocumented in this encounter Administered Medications Inactive Administered Medications - up to 3 most recent administrations Medication Order MAR Action Action Date Dose Rate Site 0.9 % sodium chloride ([facility] sodium chloride 0.9%) injection 10 mL, intravenous, Weekly, First dose on Lydia 01/03/23 at 1230, On saturday, Indications: line careIndications:line care Given 01/02/2023 11:11 AM CDT 10 mL sodium chloride 0.9 % solution 1,000 mL, intravenous, Weekly, First dose on Lydia 01/03/23 at 1230, Patient to infuse 1000mL of Normal Saline via CADD Coreas pump set at 300mL/Hr once weekly.- Saturday, Indications: hydrationIndications:hydration Given 01/02/2023 11:11 AM CDT 1,000 mL documented in this encounter Home Health Visit - Care Plan Visit Details Visit Type -SN Home Visit Discipline -Intermediate Problems Problem Description Start Date Status Goals Interventions Safety concerns Disciplines: Intermediate Safety needs related to infusion administration 11/14/2022 Active - 1 problem intervention scheduled/documen omar in this visit Learning/Teachin g Needs - IV Therapy Disciplines: Intermediate Teaching and learning needs for performing home IV therapy 11/14/2022 Active - 6 problem interventions scheduled/documen omar in this visit Monitor patient's vital signs every home health visit Disciplines: SN, PT, OT, CONSERVATION SCIENTIST, HEAT TREATER HELPER, Skilled Disciplines Monitor patient's vital signs [...] visit during episode of care Description: Home fiber optic technician to measure vital signs during every [...] MD and infusion service Problem:Safety concerns Completed Verbalizes good understanding of IV complications and prevention/management of same. Instruct [...] needed, and timeframe in which to call. Instruct Infection Prevention Description: Instruct patient/caregiver in strategies to prevent infection. Instruct patient/caregiver on how to recognize signs and symptoms of infection and when to notify HH nurse and/or physician. Problem:Learning/Teac soco Needs - IV Therapy Completed Patient instructed on frequent/proper hand-washing techniques, Standard precautions, avoid crowds and persons with known infections, staying current with immunizations, s/s of infection, use of incentive spirometer, use of antibiotics and encourage adequate diet and fluid intake. Patient verbalize and demonstrate knowledge of home management of IV catheter. IV Access Care/Maintenance Description: Skilled Nurse to [...] include good handwashing, aseptic technique as per [facility] Home Infusion Policies and Procedures, and troubleshooting/manag ement. Instruct on IV flush Description: Instruct patient/caregiver in how to perform flushing of IV line according to MD orders or protocol. Problem:Learning/Teac soco Needs - IV Therapy Completed Pt verbalizes good understanding of IV flush procedure using aseptic technique as per [facility] HH Infusion policy. IV Administration Description: Skilled Nurse to instruct [...] Scheduled documented in this encounter Care Teams Attacher Relationship Specialty Start Date End Date Julio César Briseno MD PCP - General 10/01/16 Eren Cr MD Referring Physician Medical Oncology 11/25/18 Yohana Bowen MD Radiation Oncologist Radiation Oncology 11/25/18 documented as of this encounter
--- OUTSIDE RECORDS SUMMARY | 2024-06-25 22:13 | XMS_ITS | Encounter Summary ---
Author Organization [facility] [address] [facility] Address [address] [place] [address] Phone Care Team Providers Care Tire Maker Name Role Phone Julio César Briseno MD Primary Care Provider [phone] Eren Cr MD Unavailable [phone] Yohana Bowen MD Unavailable Reason for Visit * Reason Onset Date Comments medication question 12/27/2022 Encounter Details Date Type Department Care Team (Late st Contact Info) Description 12/27/2022 Telephone [facility] Oncology [address] [place] [address] Eren Cr MD [address] [place], [place] [id number] medication question Social History Tobacco Use Types Packs/Day Years [...] on file 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 Reviewed med usage with clinical research team and clinical pharmacist and deemed okay to take short term while on study med. Called and let patient know doxy is okay for one week. documented in this encounter Plan of Treatment Not on file documented as of this encounter Visit Diagnoses Not on filedocumented in this encounter Care Teams Tire Maker Relationship Specialty Start Date End Date Julio César Briseno MD PCP - General 10/01/16 Eren Cr MD Referring Physician Medical Oncology 11/25/18 Yohana Bowen MD Radiation Oncologist Radiation Oncology 11/25/18 documented as of this encounter
--- OUTSIDE RECORDS SUMMARY | 2024-06-25 22:13 | XMS_ITS | Encounter Summary ---
Author Organization [facility] Address [address] [place] [address] Phone Care Team Providers Care Course Developer Name Role Phone Julio César Briseno MD Primary Care Provider [phone] Eren Cr MD Unavailable [phone] Yohana Bowen MD Unavailable Reason for Visit * Episode Based Medications (Routine) - Closed Specialty Diagnoses / Procedures Referred By Evelyne bowman Referred To Contact Diagnoses Neuro-endocrine carcinoma (HCC) Procedures study [id number] phase III cabozantinib Eren Cr MD [address] [facility] [address] [place] [address] Phone: tel: fax: [facility] and [facility] [address] [facility] Advanced Medicine 7th [place] [address] Phone: tel: Referral ID Status Reason Start Date Expiration Date Visits Re quested Visits Authorized [id number] Closed 06/21/2021 06/26/2024 1 99 Encounter Details Date Type Department Care Team (Latest Contact Info) Description 01/10/2023 11:00 AM CDT Research Med Pick-Up/CTRU District Leader [facility] Oncology [address] [place] [phone] Neuro-endocrine carcinoma (HCC) Social History Tobacco Use [...] on file 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
--- OUTSIDE RECORDS SUMMARY | 2024-06-25 22:13 | XMS_ITS | Encounter Summary ---
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 Gender Identity Not on file Sexual Orientation Straight 02/19/2021 9: 29 AM CDT Occupation Industry Job Start Date Job End Date retired Not on file Not on file Not on file documented as of this encounter Last Filed Vital Signs Vital Sign Reading Time Taken Comments Blood Pressure 134/72 12/26/2022 10:08 AM CDT Pulse 52 12/26/2022 10:08 AM CDT Temperature 36.3 ??C (97.4 ??F) 12/26/2022 10:08 AM C DT Respiratory Rate 16 12/26/2022 10:08 AM CDT Oxygen Saturation 97% 12/26/2022 10:08 AM CDT Inhaled Oxygen Concentration - - Weight - - Height 160 cm (5' 3 ) 12/26/2022 10:08 AM CDT Body Mass Index - - documented in this encounter Miscellaneous Notes * Home Health Visit Narrative - Yo Santiago RN - 12/26/2022 12:00 AM CDT Patient Covid screen performed prior to arrival. Assessed patient upon arrival. All findings and vital signs WNL. Implanted port accessed without difficulty using aseptic technique and sterile TSM dressing applied.. Skilled Nurse verified patency. Port flushed and aspirated without resistance. No signs/ symptoms of bleeding, hematoma, or infiltration. Started infusion of IV fluids via CADD pump. Patient discharged to home with port accessed and fluids running. Patient's spouse to heparinized and deaccess port when infusion is completed. Patient's questions [...] Dose Rate Site 0.9 % sodium chloride ([facility] sodium chloride 0.9%) injection 10 mL, intravenous, Weekly, First dose on Lydia 12/27/22 at 0930, On saturday, Indications: line careIndications:line care Given 12/26/2022 10:35 AM CDT 10 mL Right Chest sodium chloride 0.9 % solution 1,000 mL, intravenous, Weekly, First dose on Lydia 12/27/22 at 0930, Patient to infuse 1000mL of Normal Saline via CADD Coreas pump set at 300mL/Hr once weekly.- Saturday, Indications: hydrationIndications:hydra tion Given 12/26/2022 10:45 AM CDT 1,000 mL documented in this [...] home health visit Disciplines: SN, PT, OT, MEDICAL DIAGNOSTIC RADIOGRAPHER, STUDIO HAND, Skilled Disciplines Monitor patient's vital signs every [...] visit during episode of care Description: Home home management supervisor to measure vital signs during every home [...] service Problem:Safety concerns Completed Instructed patient/caregiver on how to manage breaks in [...] IV supplies in the home, prepare supplies, and waste disposal. Patient and caregiver verbalize understanding Instruct Infection Prevention Description: Instruct patient/caregiver in strategies to prevent infection. Instruct patient/caregiver on how to recognize signs and symptoms of infection and when to notify HH nurse and/or physician. Problem:Learning/Teac soco Needs - IV Therapy Completed Patient instructed on frequent/proper hand-washing techniques, [place] precautions, avoid crowds and persons with known [...] on how to properly administer saline and heparin flushes. Patient and caregiver verbalize understanding Reason for Therapy: Iv hydration. IV Access [...] or protocol. Patient and caregiver verbalize understanding Dressing change [...] soco Needs - IV Therapy Scheduled IV Discontinuation Description: Instruct patient/caregiver on how to remove peripheral IV after last infusion per MD order or instruct on process of removal of Central Venous Catheter if it is to be removed in the home after infusion therapy is completed by Skilled Nurse. Problem:Learning/Teac soco Needs - IV Therapy Instructed patient/caregiver on heparinizing and deaccessing port in the home after infusion therapy is completed. Patient/caregiver verbalized understanding. Monitor Vital Signs Description: Monitor blood pressure, [...] control measures Patient and caregiver verbalize understanding Educate Family on Infection Prevention Description: Instructed family on signs and symptoms of infection IE: fever, odor, change in color, increased amount of drainage, purulent drainage, warmth. Problem:Infection Prevention Goal:Verbalize signs of infection Scheduled Instruct Fall Prevention Description: Instruct patient/caregiver in methods to prevent falls Problem:Safety concerns Goal:Demonstrate use of safety precautions Completed Instructed patient/caregiver in methods to prevent falls Patient and caregiver verbalize understanding Assess safety Description: Assess patient safety Problem:Safety concerns Goal:Demonstrate use of safety precautions Completed Patient verbalized no safety concerns. documented in this encounter Care Teams Bit Gatherer Relationship Specialty Start Date End Date Julio César Briseno MD PCP - General 10/01/16 Eren Cr MD Referring Physician Medical Oncology 11/25/18 Yohana Bowen MD Radiation Oncologist Radiation Oncology 11/25/18 documented as of this encounter
--- OUTSIDE RECORDS SUMMARY | 2024-06-25 22:13 | XMS_ITS | Encounter Summary ---
Author Organization [facility] Address [address] [place] [address] Phone Care Team Providers Care Lay Out Helper Name Role Phone Julio César Briseno MD Primary Care Provider Eren Cr MD Unavailable [phone] Yohana Bowen MD Unavailable Encounter Details Date Type Department Care Team (Late st Contact Info) Description 12/13/2022 Orders Only [facility] Oncology [address] [place] [address] Eren Cr MD [address] [place] [address] Neuro-endocrine carcinoma (HCC) (Primary Dx) Social History [...] on file 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
--- OUTSIDE RECORDS SUMMARY | 2024-06-25 22:13 | XMS_ITS | Encounter Summary ---
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) Procedures OR OCTREOTIDE INJECTION, DEPOT Octreotide 28 Day Cycles - Carcinoid Eren Cr MD [address] [place] [address] Phone: tel: fax: [address] [address] Phone: tel: fax: Referral ID Status Reason Start Date Expiration Date V isits Requested Visits Authorized [id number] Authorized 11/28/2017 02/05/2025 1 150 Encounter Details Date Type Department Care Team (Late st Contact Info) Description 12/13/2022 11:15 AM CDT Infusion [facility] Oncology [address] [place] [address] Neuroendocrine carcinoma (HCC) (Primary Dx); Dehydration; Neuroendocrine carcinoma (CMS/HCC) (HCC) Social History Tobacco [...] on file 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 female who presents for treatment of NS 1 liter over 2 hours prior to CTscan. No Xgeva today due to low Phos. No Magnesium ordered. Octreotide IM given - see injection note. Patient received Study [id number] Cabozantinib. Chemistry Lab Results Component Value Date SODIUM 140 12/13/2022 POTASSIUM 4.7 12/13/2022 CHLORIDE 109 12/13/2022 CO2 26 12/13/2022 ANIONGAP 5 12/13/2022 BUNSER 17 12/13/2022 CREATININE 1.43 (H) 12/13/2022 GLUCOSE 84 12/13/2022 CALCIUM 9.6 12/13/2022 BILITOT 0.4 12/13/2022 PROTEIN 6.8 09/10/2016 ALBUMIN 3.9 12/13/2022 GFRNAA 38 (L) 12/13/2022 ALKPHOS 62 12/13/2022 AST 32 12/13/2022 ALT 20 12/13/2022 PHOS 1.8 (L) 12/13/2022 MAGNESIUM 1.4 12/13/2022 Pre-treatment Nursing Assessment Nursing Assessment Appetite: Fair Have You Recently Lost Weight Without Trying?: No Diarrhea: Yes (ostomy, normal output) Constipation: No Existing Patients: Any falls since your last visit?: No New Patients: Any falls since your last visit?: Yes Fatigue: Constant Mouth Sores: No Nausea/Vomiting: Yes (vomitted twice last week) Neurological symptoms: No Pain: No Peripheral Neuropathy: No Pt states has potential to be ?: N/A Shortness of Breath?: Yes Lungs auscultated PRN: No Pt is on oxygen?: No Respiratory Effort Characteristics: Dyspnea exertion Skin Condition/Temp: Warm, Dry, No swelling Swelling: No Additional Notes: BP: 135/69 Temp: 36.3 ??C (97.4 ??F) Temp src: Temporal Pulse: 64 Resp: 18 SpO2: 98 % Weight: 76.9 kg (169 lb 9.6 oz) Treatment Patient: met treatment parameters Pre [...] Ambulatory Accompanied by: Self Discharged To: Home * Babs Stokes RN - 12/13/2022 11:15 AM CDT Oncology Nursing Note [facility] La Chung is a 72 y.o. female who presents for the following injection: Octreotide IM . Nursing Assessment Nursing Assessment Appetite: Fair Have You Recently Lost Weight Without Trying?: No Diarrhea: Yes (ostomy, normal output) Constipation: No Existing Patients: Any falls since your last visit?: No New Patients: Any falls since your last visit?: Yes Fatigue: Constant Mouth Sores: No Nausea/Vomiting: Yes (vomitted twice last week) Neurological symptoms: No Pain: No Peripheral Neuropathy: No Pt states has potential to be ?: N/A Shortness of Breath?: Yes Lungs auscultated PRN: No Pt is on oxygen?: No Respiratory Effort Characteristics: Dyspnea exertion Skin Condition/Temp: Warm, Dry, No swelling Swelling: No Additional Notes: BP: 135/69 Temp: 36.3 ??C (97.4 ??F) Temp src: Temporal Pulse: 64 Resp: 18 SpO2: 98 % Weight: 76.9 kg (169 lb 9.6 oz) Patient: met treatment parameters [...] mg 30 mg, intramuscular, Once, On Lydia 12/13/22 at 1245, For 1 dose, Refrigerate. For IM intragluteal administration only- alternate gluteal sites. Shake.Indications:Neur oendocrine carcinoma (HCC),Malignant neoplasm metastatic to liver (HCC) Given 12/13/2022 1:58 PM CDT 30 mg Right Ventrogluteal sodium chloride 0.9% bolus 1,000 mL 1,000 mL, intravenous, at 500 mL/hr, Administer over 2 Hours, Once, On Lydia 12/13/22 at 1245, For 1 doseIndications:Dehydr ation,Neuroendocrine carcinoma (HCC) New Bag 12/13/2022 12:14 PM CDT 1,000 mL 500 mL/hr documented in this encounter Orders Medications Ordered That Brett ht Not Have Been Administered Count Last Ordered Date First Ordered Date sodium chloride 0.9% bolus 1,000 mL 1 12/13 Appointment Requests Count Last Ordered Date Fi rst Ordered Date ONCBCN INFUSION APPT REQUEST 1 12/13/2022 documented in this encounter Care Teams Teachers Aide Relationship Specialty Start Date End Date Julio César Briseno MD PCP - General 10/01/16 Eren Cr MD Referring Physician Medical Oncology 11/25/18 Yohana Bowen MD Radiation Oncologist Radiation Oncology 11/25/18 documented as of this encounter
--- OUTSIDE RECORDS SUMMARY | 2024-06-25 22:13 | XMS_ITS | Encounter Summary ---
Author Organization [facility] Address [address] [place] [address] Phone Care Team Providers Care Service Team Leader Name Role Phone Julio César Briseno MD Primary Care Provider [phone] Eren Cr MD Unavailable [phone] Yohana Bowen MD Unavailable Reason for Visit * Episode Based Medications (Routine) - Closed Specialty Diagnoses / Procedures Referred By Evelyne bowman Referred To Contact Diagnoses Neuro-endocrine carcinoma (HCC) Procedures study [id number] phase III cabozantinib Eren Cr MD [address] [facility] [address] [place] [address] Phone: tel: fax: [facility] [address] [facility] Advanced Medicine 7th [place] [address] Phone: tel: Referral ID Status Reason Start Date Expiration Date Visits Re quested Visits Authorized [id number] Closed 06/21/2021 06/26/2024 1 99 Encounter Details Date Type Department Care Team (Latest Contact Info) Description 02/07/2023 3:30 PM CDT Research 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 [facility] Oncology [address] [place] [phone] Neuro-endocrine carcinoma (HCC) (Primary Dx) Social History [...] on file 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 Gender Identity Not on file Sexual Orientation [...] Date First Ordered Date [id number] cabozantinib/pl acebo (2018-02-/[id number]) tablet 20 mg 1 02/07/2023 Nursing Count Last Ordered Date First Orde red Date ONCBCN STUDY COMMUNICATION 2 1 02/07/2023 ONCBCN TREATMENT PARAMETERS 1 1 02/07/2023 RESEARCH STUDY CLARIFICATION ORDER 1 2022 Appointment Requests Count Last Ordered Date Fi rst Ordered Date ONCBCN TAKE HOME STUDY DRUG APPT 1 02/08/20 23 documented in this encounter Care Teams Service Team Leader Relationship Specialty Start Date End Date Julio César Briseno MD PCP - General 10/01/16 Eren Cr MD Referring Physician Medical Oncology 11/25/18 Yohana Bowen MD Radiation Oncologist Radiation Oncology 11/25/18 documented as of this encounter
--- OUTSIDE RECORDS SUMMARY | 2024-06-25 22:13 | XMS_ITS | Encounter Summary ---
Author Organization [facility] Address [address] [place] [address] Phone Care Team Providers Care Sharepoint Application Developer Name Role Phone Julio César Briseno MD Primary Care Provider [phone] Eren Cr MD Unavailable [phone] Yohana Bowen MD Unavailable Reason for Visit * Reason Comments Injections * Episode Based Medications (Routine) - Authorized Specialty Diagnoses / Procedures Referred By Contellen t Referred To Contact Oncology Diagnoses 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) Procedures MA OCTREOTIDE INJECTION, DEPOT Octreotide 28 Day Cycles - Carcinoid Eren Cr MD [address] [place] [address] Phone: tel: fax: [address] [address] Phone: tel: fax: Referral ID Status Reason Start Date Expiration Date V isits Requested Visits Authorized [id number] Authorized 11/28/2017 02/05/2025 1 150 Encounter Details Date Type Department Care Team (Late st Contact Info) Description 02/07/2023 4:15 PM CDT Infusion [facility] Oncology [address] [place] [address] 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 female who presents for the following injection: Octreotide. Nursing Assessment Nursing Assessment Appetite: Good Diarrhea: Yes (constant r/t ostomy takes prn immodium) Constipation: No Existing Patients: Any falls since your last visit?: No New Patients: Any falls since your last visit?: N/A Fatigue: Constant Mouth Sores: No Nausea/Vomiting: No Neurological symptoms: No Pain: No Peripheral Neuropathy: No Pt states has potential to be ?: N/A Shortness of Breath?: No Skin Condition/Temp: Warm, Dry Swelling: No Additional Notes: Holding Xgeva r/t phos of 2/ per Sola Heredia RN for Dr. Cr BP: 107/67 Temp: 36.2 ??C (97.2 ??F) Temp src: Temporal Pulse: 75 Resp: 16 SpO2: 97 % Weight: 77.6 kg (171 lb) Patient: met treatment parameters La Chung [...] mg 30 mg, intramuscular, Once, On Lydia 02/07/23 at 1530, For 1 dose, Refrigerate. For IM intragluteal administration only- alternate gluteal sites. 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) Given 02/07/2023 3:09 PM CDT 30 mg Right Dorsogluteal/Butt ock documented in this encounter Orders Medications Ordered That Brett ht Not Have Been Administered Count Last Ordered Date First Ordered Date octreotide LAR (SandoSTATIN LAR) extended release intramuscular injection 30 mg 1 02/07/2023 Appointment Requests Count Last Ordered Date Fi rst Ordered Date ONCBCN INJECTION APPOINTMENT REQUEST 1 09/2022 documented in this encounter Care Teams Sharepoint Application Developer Relationship Specialty Start Date End Date Julio César Briseno MD PCP - General 10/01/16 Eren Cr MD Referring Physician Medical Oncology 11/25/18 Yohana Bowen MD Radiation Oncologist Radiation Oncology 11/25/18 documented as of this encounter
--- OUTSIDE RECORDS SUMMARY | 2024-06-25 22:13 | XMS_ITS | Encounter Summary ---
Author Organization [facility] Address [address] [place] [address] Phone Care Team Providers Care Inhalation Therapist Name Role Phone Julio César Briseno MD Primary Care Provider [phone] Eren Cr MD Unavailable [phone] Yohana Bowen MD Unavailable Encounter Details Date Type Department Care Team (Late st Contact Info) Description 12/13/2022 Orders Only [facility] Oncology [address] [place] [address] Eren Cr MD [address] [place] [address] Neuroendocrine carcinoma (HCC) (Primary Dx); Dehydration Social History Tobacco Use Types Packs/Day [...] on file 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
--- OUTSIDE RECORDS SUMMARY | 2024-06-25 22:13 | XMS_ITS | Encounter Summary ---
Author Organization [facility] Address [address] [place] [address] Phone Care Team Providers Care Pipe Line Walker Name Role Phone Julio César Briseno MD Primary Care Provider Eren Cr MD Unavailable [phone] Yohana Bowen MD Unavailable Encounter Details Date Type Department Care Team (Late st Contact Info) Description 02/06/2023 Orders Only [facility] Oncology [address] [place] [address] Eren Cr MD [address] [place] [address] Neuro-endocrine carcinoma (HCC) (Primary Dx); Dehydration Social History [...] on file 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
--- OUTSIDE RECORDS SUMMARY | 2024-06-25 22:13 | XMS_ITS | Encounter Summary ---
Author Organization [facility] Address [address] [place] [address] Phone Care Team Providers Care Manager Maintenance Name Role Phone Julio César Briseno MD Primary Care Provider [phone] Eren Cr MD Unavailable [phone] Yohana Bowen MD Unavailable Reason for Visit * Episode Based Medications (Routine) - Closed Specialty Diagnoses / Procedures Referred By Evelyne bowman Referred To Contact Diagnoses Neuro-endocrine carcinoma (HCC) Procedures study [id number] phase III cabozantinib Eren Cr MD [address] [facility] [address] [place] [address] Phone: tel: fax: [facility] [address] [facility] 7th [place] [address] Phone: tel: Referral ID Status Reason Start Date Expiration Date Visits Re quested Visits Authorized [id number] Closed 06/21/2021 06/26/2024 1 99 Encounter Details Date Type Department Care Team (Late st Contact Info) Description 01/10/2023 10:00 AM CDT Office Visit [facility] [address] [place] [address] Eren Cr MD [address] [facility] [address] [place] [address] Neuroendocrine carcinoma (HCC) (Primary Dx); Malignant neoplasm metastatic to liver (HCC); 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); Neuro-endocrine carcinoma (HCC); Acquired hypothyroidism Social History Tobacco Use Types Packs/Day Years [...] on file 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 Gender Identity Not on file Sexual Orientation Straight 02/19/2021 9: 29 AM CDT Occupation Industry Job Start Date Job End Date retired Not on file Not on file Not on file documented as of this encounter Last Filed Vital Signs Vital Sign Reading Time Taken Comments Blood Pressure 149/76 01/10/2023 10:17 AM CDT Pulse 82 01/10/2023 10:17 AM CDT Temperature 36.1 ??C (97 ??F) 01/10/2023 10:17 AM CDT Respiratory Rate 16 01/10/2023 10:17 AM CDT Oxygen Saturation 95% 01/10/2023 10:17 AM CDT Inhaled Oxygen Concentration - - Weight 77.3 kg (170 lb 6.4 oz) 01/10/2023 10:17 AM CDT Height - - Body Mass Index 30.19 01/09/2023 9:10 AM CDT documented in this encounter Progress Notes * Angel Morales NP - 01/10/2023 10:00 AM CDT Images from the original note were not included. MEDICAL ONCOLOGY OUTPATIENT ROV NOTE DATE OF VISIT: 01/10/2023 DIAGNOSIS: well differentiated neuroendocrine tumor of ileum [...] clinical trial with 20 mg cabozantinib/placebo daily. Today she reports feeling very well with no symptoms or concerns. She reports one episode of vomiting/nausea. She also reports baseline grade shortness of breath, stable. She reports a stable energy level and appetite. She reports with a few scattered bruises to the left and right arms. She denies rash, fever, chills, cough, chest pain, palpitations, mucositis, dysuria, flank pain, foul smelling urine, worsening fatigue, new or worsening peripheral edema, new or worsening peripheral neuropathy,persistent or worsening headaches, weakness, vision or hearing change, new or worsening pain, hematuria, hematochezia, melena, hemoptysis, hematemesis. REVIEW OF SYSTEMS: A complete review of systems was performed and positive and pertinent negative responses are documented in the history of present illness All other systems were negative. PHYSICAL EXAM: ECOG PS: 1 VITALS: BP 149/76 (BP Location: Left arm) Pulse 82 Temp 36.1 ??C (97 ??F) (Temporal) Resp 16 Wt 77.3 kg (170 lb 6.4 oz) SpO2 95% BMI 30.19 kg/m?? GEN: Calm, conversant, well-appearing female in [...] well-perfused SKIN: No rashes over exposed skin. NEURO: A&Ox4, director of product marketing grossly intact by conversation, moving all extremities well, no focal deficits appreciated PSYCH: Mood euthymic, affect appropriate and congruent, speech clear and goal-directed LABORATORY: I personally reviewed all laboratories and discussed with patient during office visit, selected values included below. Hematology Lab History Latest Ref Rng & Units 10/18/2022 10:46 11/15/2022 13:30 12/13/2022 10:07 01/10/2023 09:26 Labs - Hematology WBC 3.8 - 9.9 K/cumm 3.5 3.5 2.8 2.8 Total Hb, POC 11.9 - 15.5 g/dL 10.3 10.7 10.9 11.2 Hct 35.6 - 45.5 % 31.8 32.4 33.0 33.7 Plt 150 - 400 K/cumm 117 98 85 93 Neutrophil abs 1.7 - 6.5 K/cumm 2.1 2.1 1.8 1.9 Lymphocytes, abs 0.8 - 3.3 K/cumm 0.7 0.5 0.4 0.3 Chem/LFT Lab History Latest Ref Rng & Units 12/11/2022 12:33 12/12/2022 16:08 12/13/2022 10:07 01/10/2023 09:26 Labs-Chem/LFT Sodium 135 - 145 mmol/L 140 138 Creatinine 0.60 - 1.10 mg/dL 1.43 1.37 Bilirubin, total 0.1 - 1.2 mg/dL 0.4 0.5 AST 10 - 45 Units/L 32 36 ALT 7 - 45 Units/L 20 24 CrCl- Actual Body Weight (Cockcroft-Gault) 28 36.9 41.9 44 Tumor Marker History Latest Ref Rng & Units 09/06/2022 13:57 10/18/2022 10:46 11/15/2022 13:30 12/13/2022 10:07 Tumor Markers Chromogranin A <93 ng/mL 1202 1393 1170 1630 RADIOGRAPHIC/DIAGNOSTIC REVIEW: CT chest abdomen pelvis with [...] - We reviewed her labs today hemoglobin 11.2, platelets 93 K, ANC 1.9, creatinine 1.37. - We will plan to proceed with cycle 19 day 1 of CABINET study, UPC pending. Will continue on 20 mgdosing of cabozantinib/placebo. She is agreeable to proceed with treatment. - We reviewed her Chromogranin A trend, 1630 on 12/13/22 - She will return for follow up in 4 weeks per protocol. 2. Bone metastases: - on Xgeva. Phos 2.2 today; Ca 10.0, and Creatinine 1.37 3. Diarrhea - prn immodium and lomotil 4. Hypothyroidism with TSH elevated - continue levothyroxine at 88 mcg daily - TSH 8.7 today. Will check free T4. 5. Vitamin D insufficiency/Deficiency: - 2000 international units daily recommended per nephrology - Vitamin D 24 today 6. Vision change - No longer occurring. 7. Renal function - creatinine 1.37 -follows with Nephrology 8. Right TM perforation - Follow up with ENT 9. Hyperparathyroidism - Calcium 10.0 - may be secondary to CKD, denosumab use. - On vit d supplementation. - nephrology following. 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) H/O actinic keratosis Neuroendocrine tumor Cancer Disease Assessment for mCODE Disease status: stable Reason for disease status: imaging Date of cancer disease status assessment: 07/12/22 Cancer Treatment Plan Change for ICARE data: No change in treatment plan Cosigned by Eren Cr MD at 01/11/2023 11:44 AM CDT documented in this encounter Plan of Treatment Not on file documented as of this encounter Results * Magnesium (02/07/2023 1:39 PM CDT) Magnesium 1.7 1.4 - 2.5 mg/dL [facility] Comment:Testing performed by : [facility], [address] [place] [address] Blood 02/07/2023 1:39 PM CDT 02/07/2023 1:40 PM CDT us Eren Cr MD LAB BLOOD ORDERABLES Final Re sult [facility] Department [place] [address] * (ABNORMAL) Chromogranin A (02/07/2023 1:39 PM CDT) Chromogranin A 902(H) <93 ng/mL [facility] Comment: Impaired renal or hepatic function or treatment with proton pump inhibitors may result in artifactual elevations of Chromogranin A. ADDITIONAL INFORMATION This test was developed and its performance characteristics determined by [facility] in a manner consistent with CLIA requirements. [...] a homogeneous time-resolved immunofluorescent assay manufactured by [employer] and performed on the [employer] Kryptor Compact Plus. ? Values obtained with different assay methods or kits may be different and cannot be used interchangeably. ? Test results cannot be interpreted as absolute evidence for the presence or absence of malignant disease. Test Performed by: [address] [address] Administrative Supervisor: Immanuel Novak M.D. Ph.D.; CLIA# [id number] Blood 02/07/2023 1:39 PM CDT 02/07/2023 4:39 PM CDT Narrative [facility] - 02/09/2023 9:40 AM CDT sent 1.0 ml serum us Eren Cr MD LAB BLOOD ORDERABLES Final Re sult [facility] Department [place] [address] * (ABNORMAL) Comprehensive metabolic panel (02/07/2023 1:39 PM CDT) Sodium 140 135 - 145 mmol/L [facility] Comment:Testing performed by : [facility], [address] [place] [address] Potassium, pl 4.8 3.3 - 4.9 mmol/L [facility] Chloride 107 97 - 110 mmol/L [facility] CO2 27 22 - 32 mmol/L [facility] Anion gap 6 2 - 15 mmol/L [facility] BUN 15 6 - 25 mg/dL [facility] Creatinine 1.30(H) 0.60 - 1.10 mg/dL [facility] Glucose 77 70 - 199 mg/dL [facility] [...] interpretive data was last revised 2022. Calcium 10.0 8.5 - 10.3 mg/dL [facility] Bilirubin, total 0.5 0.1 - 1.2 mg/dL [facility] Protein, pl 6.6 6.5 - 8.5 g/dL [facility] Albumin 4.0 3.5 - 5.0 g/dL [facility] Alk phos 62 40 - 130 Units/L [facility] ALT 21 7 - 45 Units/L [facility] AST 29 10 - 45 Units/L [facility] Blood 02/07/2023 1:39 PM CDT 02/07/2023 1:40 PM CDT Eren Cr MD LAB BLOOD ORDERABLES Final Re sult [facility] [place] [address] * (ABNORMAL) CBC with auto differential (02/07/2023 1:39 PM CDT) [facility] WBC 3.1(L) 3.8 - 9.9 K/cumm [facility] Comment:Testing performed by : [address] [address] Hgb 11.3(L) 11.9 - 15.5 g/dL [facility] Comment:Testing performed by : [address] [address] Hct 34.9(L) 35.6 - 45.5 % [facility] Comment:Testing performed by : [address] [address] Plt 95(L) 150 - 400 K/cumm [facility] Comment:Testing performed by : [address] [address] MPV 10.2 9.1 - 12.3 fL [facility] RBC 3.48(L) 3.90 - 5.20 M/cumm [facility] MCV 100.3(H) 81.3 - 96.4 fL [facility] MCH 32.5 27.1 - 33.3 pg [facility] MCHC 32.4 32.3 - 35.7 g/dL [facility] RDW CV 14.7 11.1 - 14.9 % [facility] RDW SD 52.7(H) 35.7 - 48.1 fL [facility] NRBC abs 0.00 0.00 - 0.01 K/cumm [facility] Blood 02/07/2023 1:39 PM CDT 02/07/2023 1:40 PM CDT Eren Cr MD LAB BLOOD ORDERABLES Final Re sult Performing Organization Address [facility] Co de Phone Number [place], [place] [phone] * (ABNORMAL) Vitamin D 25 hydroxy (02/07/2023 1:39 PM CDT) Vitamin D 25-OH 22(L) 30 - 80 ng/mL [facility] Blood 02/07/2023 1:39 PM CDT 02/07/2023 3:38 PM CDT Eren Cr MD LAB BLOOD ORDERABLES Final Re sult Performing Organization Address [facility] Co de Phone Number [place], [place] [phone] * (ABNORMAL) Phosphorus (02/07/2023 1:39 PM CDT) Phosphorus, pl 2.1(L) 2.3 - 4.5 mg/dL [facility] Comment:Testing performed by : [address] [address] Blood 02/07/2023 1:39 PM CDT 02/07/2023 1:40 PM CDT Eren Cr MD LAB BLOOD ORDERABLES Final Re sult Performing Organization Address [facility] [place] [place] [address] * (ABNORMAL) Lipid panel (02/07/2023 1:39 PM CDT) Cholesterol 167 30 - 199 mg/dL [facility] Comment: Interpretive Data Ages < [...] Data was last revised on 2018. Triglycerides 193(H) <=149 mg/dL [facility] Comment: Interpretive Data Ages < [...] on 2018. HDL 56 >=40 mg/dL [facility] Comment: Interpretive Data Ages < [...] was last revised on 2018. LDL, calculated 72 <=129 mg/dL [facility] Comment: Interpretive Data Ages < [...] was last revised on 2018. Non-HDL Cholesterol 111 mg/dL [facility] Comment: Interpretive Data Ages < [...] last revised on 2018. 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) Other malignant neoplasm of unspecified site Acquired hypothyroidism Unspecified hypothyroidism Neuroendocrine carcinoma (HCC) Other malignant neoplasm of unspecified site Malignant neoplasm metastatic to liver (HCC) Neuro-endocrine carcinoma (HCC) Other malignant neoplasm of unspecified site documented in this encounter Orders Appointment Requests Count Last Ordered Date Fi rst Ordered Date ONCBCN CLINIC APPOINTMENT REQUEST 3 023 01/10/2023 ONCBCN INJECTION APPOINTMENT REQUEST 1 09/2022 ONCBCN LAB APPOINTMENT 2 02/07/2023 ONCBCN TAKE HOME STUDY DRUG APPT 1 02/08/20 23 documented in this encounter Care Teams Manager Maintenance Relationship Specialty Start Date End Date Julio César Briseno MD PCP - General 10/01/16 Eren Cr MD Referring Physician Medical Oncology 11/25/18 Yohana Bowen MD Radiation Oncologist Radiation Oncology 11/25/18 documented as of this encounter
--- OUTSIDE RECORDS SUMMARY | 2024-06-25 22:13 | XMS_ITS | Encounter Summary ---
Author Organization [facility] Address [address] [place] [address] Phone Care Team Providers Care Staff Training And Development Manager Name Role Phone Julio César Briseno MD Primary Care Provider [phone] Eren Cr MD Unavailable [phone] Yohana Bowen MD Unavailable Reason for Visit * Reason Comments Injections * Episode Based Medications (Routine) - Authorized Specialty Diagnoses / Procedures Referred By Contellen t Referred To Contact Oncology Diagnoses 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) Procedures RI OCTREOTIDE INJECTION, DEPOT Octreotide 28 Day Cycles - Carcinoid Eren Cr MD [address] [place] [address] Phone: tel: fax: [address] [address] Phone: tel: fax: Referral ID Status Reason Start Date Expiration Date V isits Requested Visits Authorized [id number] Authorized 11/28/2017 02/05/2025 1 150 Encounter Details Date Type Department Care Team (Late st Contact Info) Description 12/13/2022 11:30 AM CDT Infusion [facility] Oncology [address] [place] [address] Neuroendocrine carcinoma (CMS/HCC) (HCC) (Primary Dx); Malignant [...] on file 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 Gender Identity Not on file Sexual Orientation [...] liver (HCC) documented in this encounter Orders Medications Ordered That Brett ht Not Have Been Administered Count Last Ordered Date First Ordered Date octreotide LAR (SandoSTATIN LAR) extended release intramuscular injection 30 mg 1 12/13/2022 Appointment Requests Count Last Ordered Date Fi rst Ordered Date ONCBCN INJECTION APPOINTMENT REQUEST 1 02/2023 documented in this encounter Care Teams Staff Training And Development Manager Relationship Specialty Start Date End Date Julio César Briseno MD PCP - General 10/01/16 Eren Cr MD Referring Physician Medical Oncology 11/25/18 Yohana Bowen MD Radiation Oncologist Radiation Oncology 11/25/18 documented as of this encounter
--- OUTSIDE RECORDS SUMMARY | 2024-06-25 22:13 | XMS_ITS | Encounter Summary ---
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 Gender Identity Not on file Sexual Orientation Straight 02/19/2021 9: 29 AM CDT Occupation Industry Job Start Date Job End Date retired Not on file Not on file Not on file documented as of this encounter Last Filed Vital Signs Vital Sign Reading Time Taken Comments Blood Pressure 168/70 01/30/2023 2:30 PM CDT Pulse 88 01/30/2023 2:30 PM CDT Temperature 36.3 ??C (97.4 ??F) 01/30/2023 2:30 PM CD T Respiratory Rate 16 01/30/2023 2:30 PM CDT Oxygen Saturation 98% 01/30/2023 2:30 PM CDT Inhaled Oxygen Concentration - - Weight 77.1 kg (170 lb) 01/30/2023 2:30 PM CDT Height - - Body Mass Index 30.11 01/09/2023 9:10 AM CDT documented in this encounter Miscellaneous Notes * Home Health Plan for Next Visit - Willem Sung RN - 01/30/2023 2:13 PM CDT Reason for today's visit: assessment, port access Discuss plan of care with patient Discharge planning ongoing Plan for next visit: assessment, port access, start fluids. documented in this encounter Plan of Treatment Not on file documented as of this encounter Visit Diagnoses Not on filedocumented in this encounter Administered Medications Inactive Administered Medications - up to 3 most recent administrations Medication Order MAR Action Action Date Dose Rate Site 0.9 % sodium chloride ([facility] sodium chloride 0.9%) injection 10 mL, intravenous, Weekly, First dose on Lydia 01/31/23 at 0900, On saturday, Indications: line careIndications:line care Given 01/30/2023 2:30 PM CDT 10 mL sodium chloride 0.9 % solution 1,000 mL, intravenous, Weekly, First dose on Lydia 01/31/23 at 0900, Patient to infuse 1000mL of Normal Saline via CADD Coreas pump set at 300mL/Hr once weekly.- Saturday, Indications: hydrationIndications:hydration Given 01/30/2023 2:30 PM CDT 1,000 mL documented in this encounter Home Health Visit - Care Plan Visit Details Visit Type -SN Home Visit Discipline -Alf Problems Problem Description Start Date Status Goals Interventions Safety concerns Disciplines: Alf Safety needs related to infusion administration 11/14/2022 Active - 1 problem intervention scheduled/documen omar in this visit Learning/Teachin g Needs - IV Therapy Disciplines: Alf Teaching and learning needs for performing home IV therapy 11/14/2022 Active - 6 problem interventions scheduled/documen omar in this visit Monitor patient's vital signs every home health visit Disciplines: SN, PT, OT, DIRECTOR OF RESEARCH AND DEVELOPMENT, SOLAR PHOTOVOLTAIC INSTALLER, Skilled Disciplines Monitor patient's vital signs every [...] visit during episode of care Description: Home social media content manager to measure vital signs during every [...] MD and infusion service Problem:Safety concerns Completed Skilled nurse instrucedt patient/caregiver on how to manage breaks in line, signs/symptoms of complications, who to contact for complications and how to contact the nurse, MD and infusion service. 24hr phone numbers in the home. Instruct on IV supplies Description: Instruct patient/caregiver in how to gather supplies, how to restock IV supplies in the home, prepare supplies, administer IV medication and disconnect IV medication, inspecting solution and supplies before infusing, and waste disposal. Problem:Learning/Teac soco Needs - IV Therapy Completed Patient aware of how and when to get supplies and has an adequate supply on hand. She has our 24hr phone number if needed. Instruct Infection Prevention Description: Instruct patient/caregiver in strategies to prevent infection. Instruct patient/caregiver on how to recognize signs and symptoms of infection and when to notify HH nurse and/or physician. Problem:Learning/Teac soco Needs - IV Therapy Completed Skilled nurse instructed patient/caregiver in strategies to prevent infection. Instruct patient/caregiver on how to recognize signs and symptoms of infection and when to notify HH nurse and/or physician. Both verbalize understanding. IV Administration Description: Skilled Nurse to instruct patient/caregiver on how to properly administer medication saline and heparin. Skilled Nurse to instruct patient/caregiver to administer IV medication as ordered including saline and heparin flushes. Reason for Therapy: Iv hydration. Problem:Learning/Teac soco Needs - IV Therapy Completed Skilled nurse accessed the port and started her I V fluids which are infusing via Cadd pump and caregiver has taken her down many times and comfortable with stopping pump and flushing, hepariniing port and he is able to deaccess her port. He has our 24hr phone number if needed. IV Access Care/Maintenance Description: Skilled Nurse to [...] soco Needs - IV Therapy Completed Port to R Chest without S/S of infection and site prepped and Port accessed with a Lima needle, coverd with Tegaderm dressing. Port flushes well and IV fluids started at 500ml/hr via Cadd pump. Caregiver present and will stop infusion when complete and flush lines and deaccess port. Instruct on IV flush Description: Instruct patient/caregiver in how to perform flushing of IV line according to MD orders or protocol. Problem:Learning/Teac soco Needs - IV Therapy Completed Skilled nurse instructed patient/caregiver on how to perform flushing of IV line [...] health visit during episode of care Scheduled Patients VSS, afebrile and with no C/O pain or problems. Educate Patient on Infection Prevention Description: Instruct patient on signs and symptoms of infection IE: fever, odor, change in color, increased amount of drainage, purulent drainage, warmth. Problem:Infection Prevention Goal:Verbalize signs of infection Completed Skilled nurse instructed patient on signs and symptoms of infection IE: fever, odor, change in color, increased amount of drainage, purulent drainage, warmth. Patient verbalized understanding and will call with questions. Educate Family on Infection Prevention Description: Instructed [...] Scheduled documented in this encounter Care Teams Lawyers Relationship Specialty Start Date End Date Julio César Briseno MD PCP - General 10/01/16 Eren Cr MD Referring Physician Medical Oncology 11/25/18 Yohana Bowen MD Radiation Oncologist Radiation Oncology 11/25/18 documented as of this encounter
--- OUTSIDE RECORDS SUMMARY | 2024-06-25 22:13 | XMS_ITS | Encounter Summary ---
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 Gender Identity Not on file Sexual Orientation [...] tablet (20 mg total) by mouth nightly amoxicillin (AMOXIL) 875 mg tablet Take 1 tablet (875 mg total) by mouth 2 (two) times a day for 5 days 10 tablet 02/05/2023 02/11/20 23 0.9 % sodium chloride ([facility] sodium chloride 0.9%) injectionIndication s:line care Infuse 10 mL into a venous catheter once a week On saturday06/20/20 24 amLODIPine (NORVASC) 5 mg tabletIndications:h ypertension Take 0.5 tablets (2.5 mg total) by mouth nightly 07/27/2022 06/11/20 23 ascorbic acid, vitamin C, 500 mg capsuleIndications: supplement Take 1 tablet by mouth portainer operator before breakfast 07/04/2016 06/20/20 24 ciprofloxacin-dexAM ETHasone (CIPRODEX) otic suspension Administer 4 drops into the right ear 2 (two) times a day Begin 1 week post op 7.5 mL 3 02/05/2023 06/11/20 23 clotrimazole-betame thasone (LOTRISONE) cream Apply 1 Application topically daily as needed (rash) 06/20/20 24 coenzyme D90-kgfgngf E 100-5 mg-unit capsuleIndications: supplement Take 1 tablet by mouth portainer operator before breakfast 06/20/20 24 diphenoxylate-atrop ine (LOMOTIL) [...] -Heparin to flush 06/20/20 24 HYDROcodone-acetami nophen (Karthaus) 5-325 mg per tabletIndications:P ain Take 1 tablet by mouth every 6 (six) hours as needed for pain 15 tablet 02/05/2023 05/24/20 23 INV-[facility] cabozantinib/placeb o (/[id number]) 20 mg tabletIndications:c ancer study Take 1 tablet (20 mg total) by mouth nightly Take on an empty stomach (no food for 2 hours before and 1 hour after each dose).?? Avoid [place]'s Wort, grapefruit products and [place] oranges while on treatment. 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) DIFFERENTIAL AUTO Routine 02/07/2023 1:3 9 PM CDT 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) CHROMOGRANIN A Routine 02/07/2023 1:39 PM CDT 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) CBC WITH AUTO DIFFERENTIAL Routine 02/07/2023 1:39 PM CDT 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) VITAMIN D 25 HYDROXY Routine 02/07/2023 1:39 PM CDT 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) PHOSPHORUS Routine 02/07/2023 1:39 PM CDT 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) MAGNESIUM STAT 02/07/2023 1:39 PM CDT Neuro-endocrine carcinoma (HCC) LIPID PANEL Routine 02/07/2023 1:39 PM CDT 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) COMPREHENSIVE METABOLIC PANEL STAT 02/07/2023 1:39 PM CDT 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) documented in this encounter Results * (ABNORMAL) eGFR (02/07/2023 1:39 PM CDT) eGFR 43(L) 90 - 130 mL/min/1. 73 m2 [facility] Comment: Interpretive Data Reference Interval Normal [...] interpretive data was last reviewed 2021. Blood 02/07/2023 1:39 PM CDT 02/07/2023 1:40 PM CDT us Eren Cr MD LAB BLOOD ORDERABLES Final Re sult [facility] Department [place] [address] * (ABNORMAL) Differential, auto (02/07/2023 1:39 PM CDT) Pathologist [facility] Neutrophil abs 1.9 1.7 - 6.5 K/cumm [facility] Comment:Testing performed by : [facility], [address] [place] [id number] Imm gran abs 0.0 0.0 - 0.1 K/cumm [facility] Lymphocyte abs 0.5(L) 0.8 - 3.3 K/cumm [facility] Monocyte abs 0.5 0.2 - 0.8 K/cumm [facility] Eosinophil abs 0.2 0.0 - 0.5 K/cumm [facility] Basophil abs 0.0 0.0 - 0.1 K/cumm [facility] Neutrophil pct 63.1 % [facility] Comment: Interpretive Data Percent cell count reference ranges are not reported, since discordance with absolute values may lead to misinterpretation of CBC data. Current Interpretive Data was last revised on 2017. Imm gran pct 0.6 % [facility] Comment: Interpretive Data Percent cell count reference ranges are not reported, since discordance with absolute values may lead to misinterpretation of CBC data. Current Interpretive Data was last revised on 2017. Lymphocyte pct 15.6 % [facility] Comment: Interpretive Data Percent cell count reference ranges are not reported, since discordance with absolute values may lead to misinterpretation of CBC data. Current Interpretive Data was last revised on 2017. Monocyte pct 14.9 % [facility] Comment: Interpretive Data Percent cell count reference ranges are not reported, since discordance with absolute values may lead to misinterpretation of CBC data. Current Interpretive Data was last revised on 2017. Eosinophil pct 5.2 % [facility] Comment: Interpretive Data Percent cell count reference ranges are not reported, since discordance with absolute values may lead to misinterpretation of CBC data. Current Interpretive Data was last revised on 2017. Basophil pct 0.6 % [facility] Comment: Interpretive Data Percent cell count reference ranges are not reported, since discordance with absolute values may lead to misinterpretation of CBC data. Current Interpretive Data was last revised on 2017. Blood 02/07/2023 1:39 PM CDT 02/07/2023 1:40 PM CDT Eren Cr MD LAB BLOOD ORDERABLES Final Re sult [facility] Department [place] [address] * Magnesium (02/07/2023 1:39 PM CDT) [facility] Magnesium 1.7 1.4 - 2.5 mg/dL [facility] Comment:Testing performed by : [facility], [address] [place] [address] Blood 02/07/2023 1:39 PM CDT 02/07/2023 1:40 PM CDT Eren Cr MD LAB BLOOD ORDERABLES Final Re sult Performing Organization Address City/State/[facility] Co de Phone Number [facility] Department [place] [address] * (ABNORMAL) Lipid panel (02/07/2023 1:39 PM CDT) [facility] Cholesterol 167 30 - 199 mg/dL [facility] Comment: Interpretive Data Ages < [...] revised on 2018. Triglycerides 193(H) <=149 mg/dL [facility] Comment: Interpretive Data Ages < or [...] on 2018. HDL 56 >=40 mg/dL [facility] Comment: Interpretive Data Ages < or [...] on 2018. LDL, calculated 72 <=129 mg/dL [facility] Comment: Interpretive Data Ages < or [...] revised on 2018. Non-HDL Cholesterol 111 mg/dL [facility] Comment: Interpretive Data Ages < [...] last revised on 2018. Chol/HDL ratio 3 [facility] Blood 02/07/2023 1:39 PM CDT 02/07/2023 3:38 PM CDT Eren Cr MD LAB BLOOD ORDERABLES Final Re sult Performing Organization Address [facility] de Phone Number [facility] Department of Laboratories [place], [place] [id number] * (ABNORMAL) Phosphorus (02/07/2023 1:39 PM CDT) [facility] Phosphorus, pl 2.1(L) 2.3 - 4.5 mg/dL [facility] Comment:Testing performed by : [facility], [address] [place] [address] Blood 02/07/2023 1:39 PM CDT 02/07/2023 1:40 PM CDT Eren Cr MD LAB BLOOD ORDERABLES Final Re sult Performing Organization Address [facility]/State/ZIP Co de Phone Number [facility] Department [place] [address] * (ABNORMAL) Vitamin D 25 hydroxy (02/07/2023 1:39 PM CDT) [facility] Vitamin D 25-OH 22(L) 30 - 80 ng/mL [facility] Blood 02/07/2023 1:39 PM CDT 02/07/2023 3:38 PM CDT Eren Cr MD LAB BLOOD ORDERABLES Final Re sult [facility] Department [place] [address] * (ABNORMAL) CBC with auto differential (02/07/2023 1:39 PM CDT) [facility] WBC 3.1(L) 3.8 - 9.9 K/cumm [facility] Comment:Testing performed by : [address] [address] Hgb 11.3(L) 11.9 - 15.5 g/dL [facility] Comment:Testing performed by : [address] [address] Hct 34.9(L) 35.6 - 45.5 % [facility] Comment:Testing performed by : [address] [address] Plt 95(L) 150 - 400 K/cumm [facility] Comment:Testing performed by : [address] [address] MPV 10.2 9.1 - 12.3 fL [facility] RBC 3.48(L) 3.90 - 5.20 M/cumm [facility] MCV 100.3(H) 81.3 - 96.4 fL [facility] MCH 32.5 27.1 - 33.3 pg [facility] MCHC 32.4 32.3 - 35.7 g/dL [facility] RDW CV 14.7 11.1 - 14.9 % [facility] RDW SD 52.7(H) 35.7 - 48.1 fL [facility] NRBC abs 0.00 0.00 - 0.01 K/cumm [facility] Blood 02/07/2023 1:39 PM CDT 02/07/2023 1:40 PM CDT Eren Cr MD LAB BLOOD ORDERABLES Final Re sult [facility] Department [place] [address] * (ABNORMAL) Comprehensive metabolic panel (02/07/2023 1:39 PM CDT) Sodium 140 135 - 145 mmol/L [facility] Comment:Testing performed by : [facility], [address] [place] [address] Potassium, pl 4.8 3.3 - 4.9 mmol/L [facility] Chloride 107 97 - 110 mmol/L [facility] CO2 27 22 - 32 mmol/L [facility] Anion gap 6 2 - 15 mmol/L [facility] BUN 15 6 - 25 mg/dL [facility] Creatinine 1.30(H) 0.60 - 1.10 mg/dL [facility] Glucose 77 70 - 199 mg/dL [facility] Comment: Interpretive Data Fasting glucose [...] 2022. Calcium 10.0 8.5 - 10.3 mg/dL [facility] Bilirubin, total 0.5 0.1 - 1.2 mg/dL [facility] Protein, pl 6.6 6.5 - 8.5 g/dL [facility] Albumin 4.0 3.5 - 5.0 g/dL [facility] Alk phos 62 40 - 130 Units/L [facility] ALT 21 7 - 45 Units/L [facility] AST 29 10 - 45 Units/L [facility] Blood 02/07/2023 1:39 PM CDT 02/07/2023 1:40 PM CDT Eren Cr MD LAB BLOOD ORDERABLES Final Re sult [facility] Department [place] [address] * (ABNORMAL) Chromogranin A (02/07/2023 1:39 PM CDT) Chromogranin A 902(H) <93 ng/mL [facility] Comment: Impaired renal or hepatic function or treatment with proton pump inhibitors may result in artifactual elevations of Chromogranin A. ADDITIONAL INFORMATION This test was developed and its performance characteristics determined by [facility] in a manner consistent with CLIA [...] a homogeneous time-resolved immunofluorescent assay manufactured by [employer] and performed on the [employer] KrTimbreor Compact Plus. ? Values obtained with different assay methods or kits may be different and cannot be used interchangeably. ? Test results cannot be interpreted as absolute evidence for the presence or absence of malignant disease. Test Performed by: [facility] [address] [place] [address] Shotgun Shell Reprinting Unit Operator: Immanuel Novak M.D. Ph.D.; CLIA# [id number] Blood 02/07/2023 1:39 PM CDT 02/07/2023 4:39 PM CDT Narrative [facility] - 02/09/2023 9:40 AM CDT sent 1.0 ml serum us Eren Cr MD LAB BLOOD ORDERABLES Final Re sult [facility] Department [place] [address] documented in this encounter Visit Diagnoses Diagnosis Neuroendocrine carcinoma (HCC) Other malignant neoplasm of unspecified site Malignant neoplasm metastatic to liver (HCC) Neuro-endocrine carcinoma (HCC) Other malignant neoplasm of unspecified site documented in this encounter Care Teams Long Chain Dyeing Machine Operator Relationship Specialty Start Date End Date Julio César Briseno MD PCP - General 10/01/16 Eren Cr MD Referring Physician Medical Oncology 11/25/18 Yohana Bowen MD Radiation Oncologist Radiation Oncology 11/25/18 documented as of this encounter
--- OUTSIDE RECORDS SUMMARY | 2024-06-25 22:13 | XMS_ITS | Encounter Summary ---
Author Organization [facility] [employer] [employer] [facility] Address [address] [place] [address] Phone Care Team Providers Care Applied Behavior Specialist Name Role Phone Julio César Briseno MD Primary Care Provider Eren Cr MD Unavailable [phone] Yohana Bowen MD Unavailable Encounter Details Date Type Department Care Team (Late st Contact Info) Description 01/10/2023 Orders Only [facility] [address] [place] [address] Eren Cr MD [address] [place] [address] Neuro-endocrine carcinoma (HCC) (Primary Dx) [...] on file 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 Current interpretive data was last revised 2018. Creatinine Ur 101.8 mg/dL [facility] Comment: Interpretive Data No reference range established. Current interpretive data was last revised 2018. Protein/creatinin e ratio 62.9 0.0 - 180.0 mg/g CR [facility] Urine 01/14/2023 11:2 4 AM CDT 01/14/2023 11:43 AM CDT us Eren Cr MD LAB URINE ORDERABLES Final Re sult [facility] Department [place] [address] documented in this encounter Visit Diagnoses Diagnosis Neuro-endocrine carcinoma (HCC)- Primary Other malignant neoplasm of unspecified site documented in this encounter Care Teams Applied Behavior Specialist Relationship Specialty Start Date End Date Julio César Briseno MD PCP - General 10/01/16 Eren Cr MD Referring Physician Medical Oncology 11/25/18 Yohana Bowen MD Radiation Oncologist Radiation Oncology 11/25/18 documented as of this encounter
--- OUTSIDE RECORDS SUMMARY | 2024-06-25 22:13 | XMS_ITS | Encounter Summary ---
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 May repeat if patency not achieved after 2 hours. Call provider if the lumen is still occluded after 2 unsuccessful instillation attempts . Reconstitute 2 mg vial with 2.2 mL SWFI. Resulting solution is ~1 mg/mL. DO NOT SHAKE., Indications: Occluded Arteriovenous CannulaIndications:Occluded Arteriovenous Cannula Given 02/07/2023 1:32 PM CDT 2 mg documented in this encounter Orders Medications Ordered That Brett ht Not Have Been Administered Count Last Ordered Date First Ordered Date alteplase (CATHFLO ACTIVASE) injection 2 mg 1 02/07/2023 Appointment Requests Count Last Ordered Date Fi rst Ordered Date ONCBCN LAB APPOINTMENT 2 02/07/2023 documented in this encounter Care Teams Mailing Machine Operator Relationship Specialty Start Date End Date Julio César Briseno MD PCP - General 10/01/16 Eren Cr MD Referring Physician Medical Oncology 11/25/18 Yohana Bowen MD Radiation Oncologist Radiation Oncology 11/25/18 documented as of this encounter
--- OUTSIDE RECORDS SUMMARY | 2024-06-25 22:13 | XMS_ITS | Encounter Summary ---
Author Organization [facility] Healthcare Address [address] [place] [address] Care Team Providers Care Form Setter Supervisor Name Role Phone Julio César Birseno MD Primary Care Provider Eren Cr MD Unavailable [phone] Yohana Bowen MD Unavailable Encounter Details Date Type Department Care Team (Latest Contact Info) Description 01/14/2023 12:16 PM CDT - 01/14/2023 11:59 PM CDT Hospital Encounter [facility] [address] [place] [address] Neuro-endocrine carcinoma (HCC) Discharge Disposition: Discharge to [...] on file 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 Gender Identity Not on file Sexual [...] by mouth nightly 0.9 % sodium chloride ([facility] sodium chloride 0.9%) injectionIndication s:line care Infuse 10 mL into a venous catheter once a week On saturday06/20/20 24 amLODIPine (NORVASC) 5 mg tabletIndications:h ypertension Take 0.5 tablets (2.5 mg total) by mouth nightly 07/27/2022 06/11/20 23 ascorbic acid, vitamin C, 500 mg capsuleIndications: supplement Take 1 tablet by mouth truck and transport mechanic before breakfast 07/04/2016 06/20/20 24 clotrimazole-betame thasone (LOTRISONE) cream Apply 1 Application topically daily as needed (rash) 06/20/20 24 coenzyme Q52-wenfjtu E 100-5 mg-unit capsuleIndications: supplement Take 1 tablet by mouth truck and transport mechanic before breakfast 06/20/20 24 diphenoxylate-atrop ine [...] Fluids every -Heparin to flush 06/20/20 24 INV-[facility] cabozantinib/placeb o (/[id number] 2) 20 mg tabletIndications:c ancer study Take 1 tablet (20 mg total) by mouth nightly Take on an empty stomach (no food for 2 hours before and 1 hour after each dose).?? Avoid [place]'s Wort, grapefruit products and [place] oranges while on treatment. 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 Current interpretive data was last revised 2018. Creatinine Ur 101.8 mg/dL [facility] Comment: Interpretive Data No reference range established. Current interpretive data was last revised 2018. Protein/creatinin e ratio 62.9 0.0 - 180.0 mg/g CR [facility] Urine 01/14/2023 11:2 4 AM CDT 01/14/2023 11:43 AM CDT us Eren Cr MD LAB URINE ORDERABLES Final Re sult [facility] Department [place] [address] documented in this encounter Visit Diagnoses Diagnosis Neuro-endocrine carcinoma (HCC) Other malignant neoplasm of unspecified site documented in this encounter Care Teams Form Setter Supervisor Relationship Specialty Start Date End Date Julio César Briseno MD PCP - General 10/01/16 Eren Cr MD Referring Physician Medical Oncology 11/25/18 Yohana Bowen MD Radiation Oncologist Radiation Oncology 11/25/18 documented as of this encounter
--- OUTSIDE RECORDS SUMMARY | 2024-06-25 22:13 | XMS_ITS | Encounter Summary ---
Author Organization [facility] Address [address] [place] [address] Phone Care Team Providers Care Electronic Publisher Name Role Phone Julio César Briseno MD Primary Care Provider [phone] Eren Cr MD Unavailable [phone] Yohana Bowen MD Unavailable Reason for Referral * MRI/CAT/PET Scan (Routine) - Closed Specialty Diagnoses / Procedures Referred By Evelyne bowman Referred To Contact Radiology Diagnoses Neuroendocrine carcinoma (HCC) Procedures CT chest abdomen pelvis with contrast Eren Cr MD [address] [place] [address] Phone: tel: fax: [facility] Referral ID Status Reason Start Date Expiration Date Visits Re quested Visits Authorized [id number] Closed 12/13/2022 01/12/2024 1 1 Encounter Details Date Type Department Care Team (Late st Contact Info) Description 12/13/2022 Orders Only [facility] Oncology [address] [place] [address] Eern Cr MD [address] [employer] [address] [place] [address] Neuroendocrine carcinoma (HCC) (Primary Dx) Social History [...] on file 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
--- OUTSIDE RECORDS SUMMARY | 2024-06-25 22:13 | XMS_ITS | Encounter Summary ---
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 Gender Identity Not on file Sexual Orientation Straight 02/19/2021 9: 29 AM CDT Occupation Industry Job Start Date Job End Date retired Not on file Not on file Not on file documented as of this encounter Last Filed Vital Signs Vital Sign Reading Time Taken Comments Blood Pressure 118/62 01/16/2023 1:30 PM CDT Pulse 68 01/16/2023 1:30 PM CDT Temperature 37.1 ??C (98.7 ??F) 01/16/2023 1:30 PM CD T Respiratory Rate 16 01/16/2023 1:30 PM CDT Oxygen Saturation 98% 01/16/2023 1:30 PM CDT Inhaled Oxygen Concentration - - Weight - - Height - - Body Mass Index - - documented in this encounter Miscellaneous Notes * Home Health Visit Narrative - Mj Lima RN - 01/16/2023 2:10 PM CDT Port-a-cath access today. Pt tolerated well and was accessed with good blood return on the first pass. Pt and family verbalize good understanding of at-home management of port-a-cath. IV fluids initiated via CADD pump. Pt's (Alejo) verbalizes good understanding of take-down and de-access process using aseptic techniques as per [facility] Home Care Infusion protocols. Both the patient and her family verbalize good understanding of plan of care moving forward. * Home Health Plan for Next Visit - Mj Lima, IRVING - 01/16/2023 2:10 PM CDT Reason for today's visit: port-a-cath access Discuss plan of care with the patient Discharge planningv -- none at this time Plan for next visit in one week for same documented in this encounter Plan of Treatment Not on file documented as of this encounter Visit Diagnoses Not on filedocumented in this encounter Administered Medications Inactive Administered Medications - up to 3 most recent administrations Medication Order MAR Action Action Date Dose Rate Site 0.9 % sodium chloride ([facility] sodium chloride 0.9%) injection 10 mL, intravenous, Weekly, First dose on Sat01/17/23 at 1300, On saturday, Indications: line careIndications:line care Given 01/16/2023 1:00 PM CDT 10 mL sodium chloride 0.9 % solution 1,000 mL, intravenous, Weekly, First dose on Sat01/17/23 at 1300, Patient to infuse 1000mL of Normal Saline via CADD Coreas pump set at 300mL/Hr once weekly.- Saturday, Indications: hydrationIndications:hydration Given 01/16/2023 1:00 PM CDT 1,000 mL documented in this encounter Home Health Visit - Care Plan Visit Details Visit Type -SN Home Visit Discipline -Snf Problems Problem Description Start Date Status Goals Interventions Safety concerns Disciplines: Snf Safety needs related to infusion administration 11/14/2022 Active - 1 problem intervention scheduled/documen omar in this visit Learning/Teachin g Needs - IV Therapy Disciplines: Snf Teaching and learning needs for performing home IV therapy 11/14/2022 Active - 6 problem interventions scheduled/documen omra in this visit Monitor patient's vital signs every home health visit Disciplines: SN, PT, OT, MACHINE REBUILDER, POLICE CAPTAIN SENIOR, Skilled Disciplines Monitor patient's vital signs every [...] visit during episode of care Description: Home box machine operator to measure vital signs during every [...] and infusion service Problem:Safety concerns Completed Pt and verbalize good understanding of potential IV complications and prevention/management of same. Instruct on IV supplies Description: Instruct patient/caregiver in how to gather supplies, how to restock IV supplies in the home, prepare supplies, administer IV medication and disconnect IV medication, inspecting solution and supplies before infusing, and waste disposal. Problem:Learning/[facility] soco Needs - IV Therapy Completed Pt [...] of each line upon completion of infusion/flushes. Problem:Learning/Tea soco Needs - IV Therapy Completed Patient and family verbalize and demonstrate good understanding of IV access care and maintenance to include good handwashing, aseptic technique as per [facility] Home Infusion Policies and Procedures, and troubleshooting/manag ement. Instruct on IV flush Description: Instruct patient/caregiver in how to perform flushing of IV line according to MD orders or protocol. Problem:Learning/Teac soco Needs - IV Therapy Completed Pt verbalizes good understanding of IV flush procedure using aseptic technique as per [facility] Infusion policy. Instruct Infection Prevention Description: Instruct [...] Scheduled documented in this encounter Care Teams Timber Mill Worker Relationship Specialty Start Date End Date Julio César Briseno MD PCP - General 10/01/16 Eren Cr MD Referring Physician Medical Oncology 11/25/18 Yohana Bowen MD Radiation Oncologist Radiation Oncology 11/25/18 documented as of this encounter
--- OUTSIDE RECORDS SUMMARY | 2024-06-25 22:13 | XMS_ITS | Encounter Summary ---
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 Gender Identity Not on file Sexual Orientation Straight 02/19/2021 9: 29 AM CDT Occupation Industry Job Start Date Job End Date retired Not on file Not on file Not on file documented as of this encounter Last Filed Vital Signs Vital Sign Reading Time Taken Comments Blood Pressure 118/70 02/06/2023 12:50 PM CDT Pulse 70 02/06/2023 12:50 PM CDT Temperature 36.1 ??C (97 ??F) 02/06/2023 12:50 PM CDT Respiratory Rate 18 02/06/2023 12:50 PM CDT Oxygen Saturation 97% 02/06/2023 12:50 PM CDT Inhaled Oxygen Concentration - - Weight - - Height - - Body Mass Index - - documented in this encounter Miscellaneous Notes * Home Health Plan for Next Visit - Luciano Howard RN - 02/06/2023 12:10 PM CDT Reason for today's visit port accessed. iv fluids started. pt assessment and instruction Discuss plan of care with pt and spouse Discharge planning indef Plan for next visit port access, iv fluids, pt assessment and instruction documented in this encounter Plan of Treatment Not on file documented as of this encounter Visit Diagnoses Not on filedocumented in this encounter Administered Medications Inactive Administered Medications - up to 3 most recent administrations Medication Order MAR Action Action Date Dose Rate Site 0.9 % sodium chloride ([facility] sodium chloride 0.9%) injection 10 mL, intravenous, Weekly, First dose on Lydia 02/07/23 at 1530, On saturday, Indications: line careIndications:line care Given 02/06/2023 12:50 PM CDT 10 mL sodium chloride 0.9 % solution 1,000 mL, intravenous, Weekly, First dose on Lydia 02/07/23 at 1530, Patient to infuse 1000mL of Normal Saline via CADD Coreas pump set at 300mL/Hr once weekly.- Saturday, Indications: hydrationIndications:hydration Given 02/06/2023 12:50 PM CDT 1,000 mL documented in this [...] home health visit Disciplines: SN, PT, OT, EXECUTIVE OFFICER, MODERN GREEK STUDIES PROFESSOR, Skilled Disciplines Monitor patient's vital signs every [...] visit during episode of care Description: Home educational speech language clinician to measure vital signs during every [...] any problems with iv catheter or iv medication aid pt and spouse verb good undersanding IV Administration Description: Skilled Nurse to instruct patient/caregiver on how to properly administer medication saline and heparin. Skilled Nurse to instruct patient/caregiver to administer IV medication as ordered including saline and heparin flushes. Reason for Therapy: Iv hydration. Problem:Learning/Teac soco Needs - IV Therapy Completed iv fluids started per rn and cadd pump. Dressing change Description: Skilled Nurse to instruct [...] soco Needs - IV Therapy Completed spouse will dc fluids and flush and deaccess port post infusion. reviewed health and safety technician and procedure with him. verb good understanding Instruct on IV supplies Description: Instruct [...] health visit during episode of care Completed pt bp low when stands . reported to md office. iv fluids started Educate Patient on Infection Prevention Description: Instruct patient on signs and symptoms of infection IE: fever, odor, change in color, increased amount of drainage, purulent drainage, warmth. Problem:Infection Prevention Goal:Verbalize signs of infection Completed reviewed good handwashing, health and safety technician with all aspects of iv admin, and keeping port site clean and dry and dressing occlusive at all times pt and spouse verb good understanding Educate Family on Infection Prevention Description: Instructed family on signs and symptoms of infection IE: fever, odor, change in color, increased amount of drainage, purulent drainage, warmth. Problem:Infection Prevention Goal:Verbalize signs of infection Scheduled Instruct Fall Prevention Description: Instruct patient/caregiver in methods to prevent falls Problem:Safety concerns Goal:Demonstrate use of safety precautions Completed reviewed measures to avoid falls in home. pt verb good understanding Assess safety Description: Assess patient safety Problem:Safety concerns Goal:Demonstrate use of safety precautions Completed pt safe in home with spouse documented in this encounter Care Teams Data Clerk Relationship Specialty Start Date End Date Julio César Briseno MD PCP - General 10/01/16 Eren Cr MD Referring Physician Medical Oncology 11/25/18 Yohana Bowen MD Radiation Oncologist Radiation Oncology 11/25/18 documented as of this encounter
--- OUTSIDE RECORDS SUMMARY | 2024-06-25 22:13 | XMS_ITS | Encounter Summary ---
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 Eren Cr MD [address] [place] [address] Phone: tel: fax: [facility] [address] [facility] 7th [place] [address] Phone: tel: Referral ID Status Reason Start Date Expiration Date Visits Re quested Visits Authorized [id number] Closed 06/21/2021 06/26/2024 1 99 Encounter Details Date Type Department Care Team (Latest Contact Info) Description 01/10/2023 9:30 AM CDT Clinical Support [facility] Oncology [address] [phone] Neuro-endocrine carcinoma (HCC) Social History Tobacco Use [...] on file Legal Sex Female 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
--- OUTSIDE RECORDS SUMMARY | 2024-06-25 22:13 | XMS_ITS | Encounter Summary ---
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 Gender Identity Not on file Sexual Orientation Straight 02/19/2021 9 :29 AM CDT Occupation Industry Job Start Date Job End Date retired Not on file Not on file Not on file documented as of this encounter Plan of Treatment Not on file documented as of this encounter Visit Diagnoses Not on filedocumented in this encounter Care Teams Cryptographic Technician Relationship Specialty Start Date End Date Julio César Briseno MD PCP - General 10/01/16 Eren Cr MD Referring Physician Medical Oncology 11/25/18 Yohana Bowen MD Radiation Oncologist Radiation Oncology 11/25/18 documented as of this encounter
--- OUTSIDE RECORDS SUMMARY | 2024-06-25 22:13 | XMS_ITS | Encounter Summary ---
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 Gender Identity Not on file Sexual Orientation Straight 02/19/2021 9: 29 AM CDT Occupation Industry Job Start Date Job End Date retired Not on file Not on file Not on file documented as of this encounter Last Filed Vital Signs Vital Sign Reading Time Taken Comments Blood Pressure 130/60 01/23/2023 8:15 AM CDT Pulse 80 01/23/2023 8:15 AM CDT Temperature 37.2 ??C (98.9 ??F) 01/23/2023 8:15 AM CD T Respiratory Rate 16 01/23/2023 8:15 AM CDT Oxygen Saturation 98% 01/23/2023 8:15 AM CDT Inhaled Oxygen Concentration - - Weight - - Height - - Body Mass Index - - documented in this encounter Miscellaneous Notes * Home Health Visit Narrative - Mj Lima RN - 01/23/2023 8:07 AM CDT Port access and initiation of IV fluids at this time. Mrs. Chung tolerated well -- PAC accessed on the first pass with brisk blood return noted. All vital signs fall within acceptable parameters and the patient is free of distress. Mr. Chung verbalizes good understanding of takedown of PAC needle using aseptic technique with heparin flush as per [facility] Home Care Infusion protocols. * Home Health Plan for Next Visit - Mj Lima RN - 01/23/2023 8:07 AM CDT Reason for today's visit: PAC access/initiation of IV fluids Discuss plan of care with the patient [...] Dose Rate Site 0.9 % sodium chloride ([facility] sodium chloride 0.9%) injection 10 mL, intravenous, Weekly, First dose on Sat01/23/23 at 1230, On saturday, Indications: line careIndications:line care Given 01/23/2023 8:30 AM CDT 10 mL sodium chloride 0.9 % solution 1,000 mL, intravenous, Weekly, First dose on Sat01/23/23 at 1230, Patient to infuse 1000mL of Normal Saline via CADD Coreas pump set at 300mL/Hr once weekly.- Saturday, Indications: hydrationIndications:hydration Given 01/23/2023 8:30 AM CDT 1,000 mL documented in this encounter Home Health Visit - Care Plan Visit Details Visit Type -SN Home Visit Discipline -Mcc Problems Problem Description Start Date Status Goals Interventions Safety concerns Disciplines: Mcc Safety needs related to infusion administration 11/14/2022 Active - 1 problem intervention scheduled/documen omar in this visit Learning/Teachin g Needs - IV Therapy Disciplines: Mcc Teaching and learning needs for performing home IV therapy 11/14/2022 Active - 6 problem interventions scheduled/documen omar in this visit Monitor patient's vital signs every home health visit Disciplines: SN, PT, OT, REGULATION SUPERVISOR, RETAIL ASSOCIATE MANAGER BILINGUAL, Skilled Disciplines Monitor patient's vital signs every [...] visit during episode of care Description: Home restaurant hospitality manager to measure vital signs during every [...] infusion service Problem:Safety concerns Completed Pt and family verbalize good understanding of potential IV complications and prevention/management of same. Instruct on IV supplies Description: Instruct patient/caregiver in how to gather supplies, how to restock IV supplies in the home, prepare supplies, administer IV medication and disconnect IV medication, inspecting solution and supplies before infusing, and waste disposal. Problem:Learning/[facility] soco Needs - IV Therapy Completed Pt [...] include good handwashing, aseptic technique as per [facility] Home Infusion Policies and Procedures, and troubleshooting/manag ement. Instruct on IV flush Description: Instruct patient/caregiver in how to perform flushing of IV line according to MD orders or protocol. Problem:Learning/Teac soco Needs - IV Therapy Completed Pt verbalizes good understanding of IV flush procedure using aseptic technique as per [facility] HH Infusion policy. Instruct Infection Prevention [...] Scheduled documented in this encounter Care Teams Account Executive Sales Representative Relationship Specialty Start Date End Date Julio César Briseno MD PCP - General 10/01/16 Eren Cr MD Referring Physician Medical Oncology 11/25/18 Yohana Bowen MD Radiation Oncologist Radiation Oncology 11/25/18 documented as of this encounter
--- OUTSIDE RECORDS SUMMARY | 2024-06-25 22:13 | XMS_ITS | Encounter Summary ---
Author Organization 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 (HCC); Neuro-endocrine carcinoma (HCC); Acquired hypothyroidism Discharge Disposition: Discharge to home or self [...] on file 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 Gender Identity Not on file Sexual [...] by mouth nightly 0.9 % sodium chloride (INV-[facility] sodium chloride 0.9%) injectionIndication s:line care Infuse 10 mL into a venous catheter once a week On saturday06/20/20 24 amLODIPine (NORVASC) 5 mg tabletIndications:h ypertension Take 0.5 tablets (2.5 mg total) by mouth nightly 07/27/2022 06/11/20 23 ascorbic acid, vitamin C, 500 mg capsuleIndications: supplement Take 1 tablet by 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 timber sizer 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 before breakfast 07/04/2016 06/20/20 24 clotrimazole-betame thasone (LOTRISONE) cream Apply 1 Application topically daily as needed (rash) 06/20/20 24 coenzyme [id number] E 100-5 mg-unit capsuleIndications: supplement Take 1 tablet by mouth timber sizer operator before breakfast 06/20/20 24 diphenoxylate-atrop ine [...] Fluids every -Heparin to flush 06/20/20 24 INV-WU_[facility] cabozantinib/placeb o (/[id number]) 20 mg tabletIndications:c ancer study Take 1 tablet (20 mg total) by mouth nightly Take on an empty stomach (no food for 2 hours before and 1 hour after each dose).?? Avoid Beltrami's Wort, grapefruit products and [place] oranges while on treatment. 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 Take 1 tablet (88 mcg total) by mouth timber sizer operator before breakfast 90 tablet 1 10/12/2022 [...] Name Type Priority Associated Diagnoses Date /Time T4, free Lab Routine 01/10/2023 9:2 6 AM CDT Scheduled Orders Name Type Priority Associated Diagnoses Orde r Schedule T4, free Lab Routine Once for 1 Occ urrences starting 01/10/2023 until 01/10/2023 documented as of this encounter Procedures Procedure Name Priority Date/Time Associated Diagnosis Comments EGFR STAT 01/10/2023 9:26 AM CDT Neuro-endocrine carcinoma (HCC) DIFFERENTIAL AUTO STAT 01/10/2023 9:2 6 AM CDT Neuro-endocrine carcinoma (HCC) CHROMOGRANIN A Routine 01/10/2023 9:26 AM CDT 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) CBC WITH AUTO DIFFERENTIAL STAT 01/10/2023 9:26 AM CDT Neuro-endocrine carcinoma (HCC) VITAMIN D 25 HYDROXY Routine 01/10/2023 9:26 AM CDT 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) TSH Routine 01/10/2023 9:26 AM CDT Neuro-endocrine carcinoma (HCC) T4, FREE Routine 01/10/2023 9:26 AM CDT 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) PHOSPHORUS Routine 01/10/2023 9:26 AM CDT 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) MAGNESIUM STAT 01/10/2023 9:26 AM CDT Neuro-endocrine carcinoma (HCC) LIPID PANEL Routine 01/10/2023 9:26 AM CDT 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) COMPREHENSIVE METABOLIC PANEL STAT 01/10/2023 9:26 AM CDT Neuro-endocrine carcinoma (HCC) documented in this encounter Results * T4, free (01/10/2023 9:26 AM CDT) Free T4 1.23 0.90 - 1.70 ng/dL [facility] Blood 01/10/2023 9:26 AM CDT 01/10/2023 11:05 AM CDT us Eren Cr MD LAB BLOOD ORDERABLES Final Re sult [facility] Department [place] [address] * (ABNORMAL) eGFR (01/10/2023 9:26 AM CDT) Pathologist [facility] eGFR 41(L) 90 - 130 mL/min/1. 73 m2 [facility] Comment: Interpretive Data Reference Interval [...] interpretive data was last reviewed 2021. Blood 01/10/2023 9:26 AM CDT 01/10/2023 9:27 AM CDT us Eren Cr MD LAB BLOOD ORDERABLES Final Re sult [facility] Department [place] [address] * (ABNORMAL) Differential, auto (01/10/2023 9:26 AM CDT) Neutrophil abs 1.9 1.7 - 6.5 K/cumm [facility] Comment:Testing performed by : [facility], [address] [facility] [address] Imm gran abs 0.0 0.0 - 0.1 K/cumm [facility] Lymphocyte abs 0.3(L) 0.8 - 3.3 K/cumm [facility] Monocyte abs 0.4 0.2 - 0.8 K/cumm [facility] Eosinophil abs 0.2 0.0 - 0.5 K/cumm [facility] Basophil abs 0.0 0.0 - 0.1 K/cumm [facility] Neutrophil pct 67.2 % [facility] Comment: Consistent with previous result Interpretive Data Percent cell count reference ranges are not reported, since discordance with absolute values may lead to misinterpretation of CBC data. Current Interpretive Data was last revised on 2017. Imm gran pct 0.4 % [facility] Comment: Interpretive Data Percent cell count reference ranges are not reported, since discordance with absolute values may lead to misinterpretation of CBC data. Current Interpretive Data was last revised on 2017. Lymphocyte pct 10.7 % [facility] Comment: Interpretive Data Percent cell count reference ranges are not reported, since discordance with absolute values may lead to misinterpretation of CBC data. Current Interpretive Data was last revised on 2017. Monocyte pct 15.3 % [facility] Comment: Interpretive Data Percent cell count reference ranges are not reported, since discordance with absolute values may lead to misinterpretation of CBC data. Current Interpretive Data was last revised on 2017. Eosinophil pct 5.7 % [facility] Comment: Interpretive Data Percent cell count reference ranges are not reported, since discordance with absolute values may lead to misinterpretation of CBC data. Current Interpretive Data was last revised on 2017. Basophil pct 0.7 % [facility] Comment: Interpretive Data Percent cell count reference ranges are not reported, since discordance with absolute values may lead to misinterpretation of CBC data. Current Interpretive Data was last revised on 2017. Blood 01/10/2023 9:26 AM CDT 01/10/2023 9:27 AM CDT us Eren Cr MD LAB BLOOD ORDERABLES Final Re sult [facility] Department [place] [address] * (ABNORMAL) CBC with auto differential (01/10/2023 9:26 AM CDT) WBC 2.8(L) 3.8 - 9.9 K/cumm [facility] Comment:Testing performed by : [address] [address] Hgb 11.2(L) 11.9 - 15.5 g/dL [facility] Comment:Testing performed by : [address] [address] Hct 33.7(L) 35.6 - 45.5 % [facility] Comment:Testing performed by : [address] [address] Plt 93(L) 150 - 400 K/cumm [facility] Comment:Testing performed by : [address] [address] MPV 10.3 9.1 - 12.3 fL [facility] RBC 3.46(L) 3.90 - 5.20 M/cumm [facility] MCV 97.4(H) 81.3 - 96.4 fL [facility] MCH 32.4 27.1 - 33.3 pg [facility] MCHC 33.2 32.3 - 35.7 g/dL [facility] RDW CV 14.8 11.1 - 14.9 % [facility] RDW SD 52.6(H) 35.7 - 48.1 fL [facility] NRBC abs 0.00 0.00 - 0.01 K/cumm [facility] Blood 01/10/2023 9:26 AM CDT 01/10/2023 9:27 AM CDT Eren Cr MD LAB BLOOD ORDERABLES Final Re sult [facility] Department [place] [address] * (ABNORMAL) Comprehensive metabolic panel (01/10/2023 9:26 AM CDT) Sodium 138 135 - 145 mmol/L [facility] Comment:Testing performed by : [facility], [address] [place] [address] Potassium, pl 4.0 3.3 - 4.9 mmol/L [facility] Chloride 108 97 - 110 mmol/L [facility] CO2 25 22 - 32 mmol/L [facility] Anion gap 5 2 - 15 mmol/L [facility] BUN 14 6 - 25 mg/dL [facility] Creatinine 1.37(H) 0.60 - 1.10 mg/dL [facility] Glucose 124 70 - 199 mg/dL [facility] Comment: Interpretive Data Fasting [...] 2022. Calcium 10.0 8.5 - 10.3 mg/dL [facility] Bilirubin, total 0.5 0.1 - 1.2 mg/dL [facility] Protein, pl 6.5 6.5 - 8.5 g/dL [facility] Albumin 4.1 3.5 - 5.0 g/dL [facility] Alk phos 65 40 - 130 Units/L [facility] ALT 24 7 - 45 Units/L [facility] AST 36 10 - 45 Units/L [facility] Blood 01/10/2023 9:26 AM CDT 01/10/2023 9:27 AM CDT Eren Cr MD LAB BLOOD ORDERAB[place] [address] * Magnesium (01/10/2023 9:26 AM CDT) Magnesium 1.4 1.4 - 2.5 mg/dL [facility] Comment:Testing performed by : [facility], [address] [place] [address] Blood 01/10/2023 9:26 AM CDT 01/10/2023 9:27 AM CDT Eren Cr MD LAB BLOOD ORDERABLES Final Re sult Performing Organization Address [facility]/[place] [address] * (ABNORMAL) TSH (01/10/2023 9:26 AM CDT) Thyroid Stimulating Hormone 8.70(H) 0.30 - 4.20 mcIUnit/mL [facility] Blood 01/10/2023 9:26 AM CDT 01/10/2023 10:40 AM CDT Eren Cr MD LAB BLOOD ORDERABLES Final Re sult [facility] [place] [address] * (ABNORMAL) Lipid panel (01/10/2023 9:26 AM CDT) [facility] Cholesterol 171 30 - 199 mg/dL [facility] Comment: [...] Data was last revised on 2018. Triglycerides 172(H) <=149 mg/dL [facility] Comment: Interpretive Data [...] revised on 2018. HDL 62 >=40 mg/dL [facility] Comment: Interpretive Data Ages [...] was last revised on 2018. LDL, calculated 75 <=129 mg/dL [facility] Comment: Interpretive Data Ages [...] was last revised on 2018. Non-HDL Cholesterol 109 mg/dL [facility] Comment: Interpretive Data Ages [...] revised on 2018. Chol/HDL ratio 3 [facility] Blood 01/10/2023 9:26 AM CDT 01/10/2023 10:40 AM CDT Eren Cr MD LAB BLOOD ORDERABLES Final Re sult Performing Organization Address City/[facility]/ZIP Co de Phone Number [facility] Department [place] [address] * (ABNORMAL) Phosphorus (01/10/2023 9:26 AM CDT) Pathologist [facility] Phosphorus, pl 2.2(L) 2.3 - 4.5 mg/dL [facility] Comment:Testing performed by : [address] [address] Blood 01/10/2023 9:26 AM CDT 01/10/2023 9:27 AM CDT Eren Cr MD LAB BLOOD ORDERABLES Final Re sult Performing Organization Address [facility] Co de Phone Number [facility] Department [place] [address] * (ABNORMAL) Vitamin D 25 hydroxy (01/10/2023 9:26 AM CDT) [facility] Vitamin D 25-OH 24(L) 30 - 80 ng/mL [facility] Blood 01/10/2023 9:26 AM CDT 01/10/2023 10:40 AM CDT Eren Cr MD LAB BLOOD ORDERABLES Final Re sult Performing Organization Address City/[facility]/ZIP Co de Phone Number [facility] [place] [address] * (ABNORMAL) Chromogranin A (01/10/2023 9:26 AM CDT) Chromogranin A 1326(H) <93 ng/mL [facility] Comment: Impaired renal or hepatic function or treatment with proton pump inhibitors may result in artifactual elevations of Chromogranin A. ADDITIONAL INFORMATION This test was developed and its performance characteristics determined by [facility] in a manner consistent with CLIA [...] a homogeneous time-resolved immunofluorescent assay manufactured by [employer] and performed on the [employer] Mobility Kryptor Compact Plus. ? Values obtained with different assay methods or kits may be different and cannot be used interchangeably. ? Test results cannot be interpreted as absolute evidence for the presence or absence of malignant disease. Test Performed by: [place] [address] Utility Systems Repairer Operator: Immanuel Novak M.D. Ph.D.; CLIA# [id number] Blood 01/10/2023 9:26 AM CDT 01/10/2023 11:16 AM CDT us Eren Cr MD LAB BLOOD ORDERABLES Final Re sult [facility] Department [place] [address] documented in this encounter Visit Diagnoses Diagnosis Neuroendocrine carcinoma (CMS/HCC) (HCC) Other malignant neoplasm of unspecified site Malignant neoplasm metastatic to liver (HCC) Neuro-endocrine carcinoma (HCC) Other malignant neoplasm of unspecified site Acquired hypothyroidism Unspecified hypothyroidism documented in this encounter Care Teams Director Of Institutional Sales Relationship Specialty Start Date End Date Julio César Briseno MD PCP - General 10/01/16 Eren Cr MD Referring Physician Medical Oncology 11/25/18 Yohana Bowen MD Radiation Oncologist Radiation Oncology 11/25/18 documented as of this encounter
--- OUTSIDE RECORDS SUMMARY | 2024-06-25 22:13 | XMS_ITS | Encounter Summary ---
Author Organization [facility] Address [address] [place] [address] Phone Care Team Providers Care Machine Made Shoe Unit Worker Name Role Phone Julio César Briseno MD Primary Care Provider [phone] Eren Cr MD Unavailable [phone] Yohana Bowen MD Unavailable Encounter Details Date Type Department Care Team (Late st Contact Info) Description 01/09/2023 Plan of Care Documentation 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 Gender Identity Not on file Sexual Orientation Straight 02/19/2021 9: 29 AM CDT Occupation Industry Job Start Date Job End Date retired Not on file Not on file Not on file documented as of this encounter Miscellaneous Notes * Home Health Plan of Care Certification Statement - Yo Santiago RN - 01/25/2023 1:06 PM CDT I recertify that the above stated patient has a continued need for intermittent chcf, physical therapy and/or speech or occupational therapy [...] filedocumented in this encounter Care Teams Machine Made Shoe Unit Worker Relationship Specialty Start Date End Date Julio César Briseno MD PCP - General 10/01/16 Eren Cr MD Referring Physician Medical Oncology 11/25/18 Yohana Bowen MD Radiation Oncologist Radiation Oncology 11/25/18 documented as of this encounter
--- OUTSIDE RECORDS SUMMARY | 2024-06-25 22:13 | XMS_ITS | Encounter Summary ---
Author Organization [facility] Address [address] [place] [address] Phone Care Team Providers Care Mechanical Pencils Assembler Name Role Phone Julio César Briseno MD Primary Care Provider [phone] Eren Cr MD Unavailable [phone] Yohana Bowen MD Unavailable Encounter Details Date Type Department Care Team (Late st Contact Info) Description 01/10/2023 Orders Only [facility] Oncology [address] [place] [address] Yoana Murray [facility] Social History Tobacco Use Types [...] on file 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 Gender Identity Not on file Sexual Orientation Straight 02/19/2021 9: 29 AM CDT Occupation Industry Job Start Date Job End Date retired Not on file Not on file Not on file documented as of this encounter Plan of Treatment Not on file documented as of this encounter Visit Diagnoses Not on filedocumented in this encounter Care Teams Mechanical Pencils Assembler Relationship Specialty Start Date End Date Julio César Briseno MD PCP - General 10/01/16 Eren Cr MD Referring Physician Medical Oncology 11/25/18 Yohana Bowen MD Radiation Oncologist Radiation Oncology 11/25/18 documented as of this encounter
--- OUTSIDE RECORDS SUMMARY | 2024-06-25 22:14 | XMS_ITS | Encounter Summary ---
Author Organization [facility] Address [address] [place] [address] Phone Care Team Providers Care Packaging Specialist Name Role Phone Julio César Briseno MD Primary Care Provider Eren Cr MD Unavailable [phone] Yohana Bowen MD Unavailable Encounter Details Date Type Department Care Team (Late st Contact Info) Description 12/11/2022 Orders Only 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
--- OUTSIDE RECORDS SUMMARY | 2024-06-25 22:14 | XMS_ITS | Encounter Summary ---
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
--- OUTSIDE RECORDS SUMMARY | 2024-06-25 22:14 | XMS_ITS | Encounter Summary ---
Author Organization [facility] Address [address] [place] [address] Phone Care Team Providers Care Program Director Group Work Name Role Phone Julio César Briseno MD Primary Care Provider Eren Cr MD Unavailable [phone] Yohana Bowen MD Unavailable Encounter Details Date Type Department Care Team (Late st Contact Info) Description 11/29/2022 Telephone [facility] Nephrology [address] 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 * Telephone Encounter - Catherine Su - 12/04/2022 10:37 AM CDT I spoke with pt and she reports feeling much better. She asked me to call her daughter Caroline for BP readings. I spoke with Caroline and she said pt is still holding Amlodipine. She reported the following BP readings. I advised to continue monitoring BP morning and evening and that I would callher if Dr. Mi had any further recommendations. Please advise when able if anything else is needed., Date BP AM HR BP PM HR Notes 11/29 11/30 118/56 70 Left Arm 109/51 HR 78 12/01 107/55 71 Left Arm 108/52 HR 71 7:34 AM 12/02 124/48 56 Right Arm 125/56 HR 76 12/03 98/51 78 * Telephone Encounter - Kell Lord - 11/29/2022 3:17 PM CDT Spoke to pt's daughter. She will have pt stop amlodipine and continue to monitor BP and symptoms. She will call/MyChart back in a few days with an update on pt's symptoms. From: Alejo Mi MD Sent: 11/29/2022 2:40 PM CDT To: Kell Lord I would recommend stopping the amlodipine completely * Telephone Encounter - Xochitl Silvestre - 11/29/2022 8:41 AM CDT Urgent Symptoms Phone Note Symptoms: Shortness of breath Nausea/Vomiting Other Dizziness When did symptoms start? 11/24/2022 Any recent med changes? Yes - Amlodipine was started and reduced Additional info: Caroline called on behalf of mom who is located currently in [place] in the [facility], on vacation. Pt took BP three times the week of 11/18, pt was not certain which days nor was a HR recorded with these readings. 145/59 120/59 139/58 Pt's daughter stated that she did fluids as instructed 11/21 and 11/24. On the (Saturday), home health care came by and pt reported dizziness and nurse took pt's BP and that had dropped to 90/50 (did not record HR). Pt was instructed to reduce amlodipine to half. Saturday, November 25 pt reported to still feeling dizzy and nauseated. No BP was recorded. November 27 pt states that she was vomiting and feeling weak decided to take BP 121/88 (no HRwas recorded). Pt stated that she still took her medication at half dose. Yesterday, November 28 pt took BP in the morning 117/56 (no HR recorded), and at night which was 102/54 HR 72 Today November 30 pt is laying down and took BP on both arms. Right arm BP is 116/50 HR 68 and left arm 99/58 HR 71. Pt reports to still feeling dizzy and weak, also has not taken any medication. Pt's daughter states that Pt is alos apart of a clinical trial and that if anything is added to pt's medcation list that it has to be approved by oncology first. Please advise and call Pt's daughter Caroline when able. Thanks CASSIDY documented in this encounter Plan of Treatment Not on file documented as of this encounter Visit Diagnoses Not on filedocumented in this encounter Care Teams Program Director Group Work Relationship Specialty Start Date End Date Julio César Briseno MD PCP - General 10/01/16 Eren Cr MD Referring Physician Medical Oncology 11/25/18 Yohana Bowen MD Radiation Oncologist Radiation Oncology 11/25/18 documented as of this encounter
--- OUTSIDE RECORDS SUMMARY | 2024-06-25 22:14 | XMS_ITS | Encounter Summary ---
Author Organization [facility] Address [address] [place] [address] Phone Care Team Providers Care Outside Sales Name Role Phone Julio César Briseno MD Primary Care Provider [phone] Eren Cr MD Unavailable [phone] Yohana Bowen MD Unavailable Reason for Referral * MRI/CAT/PET Scan (Routine) - Closed Specialty Diagnoses / Procedures Referred By Evelyne bowman Referred To Contact Radiology Diagnoses Neuroendocrine carcinoma (HCC) Procedures CT chest abdomen pelvis with contrast Eren Cr MD [address] [place] [address] Phone: tel: fax: [facility] Referral ID Status Reason Start Date Expiration Date Visits Re quested Visits Authorized [id number] Closed 12/11/2022 01/10/2024 1 1 Encounter Details Date Type Department Care Team (Late st Contact Info) Description 12/11/2022 Orders Only [facility] Oncology [address] [place] [address] Eren Cr MD [address] [place] [address] Neuroendocrine carcinoma (HCC) (Primary Dx) Social History [...] on file 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 Gender Identity Not on file Sexual [...] Type Priority Associated Diagnoses Orde r Schedule CT chest abdomen pelvis with contrast Imaging Schedule Routine, Read Routine (OP Routine) Neuroendocrine carcinoma (HCC) Expected: 12/12/2022 (Approximate), Expires: 12/12/2023 documented as of this encounter Visit Diagnoses Diagnosis Neuroendocrine carcinoma (HCC)- Primary Other malignant neoplasm of unspecified site documented in this encounter Care Teams Outside Sales Relationship Specialty Start Date End Date Julio César Briseno MD PCP - General 10/01/16 Eren Cr MD Referring Physician Medical Oncology 11/25/18 Yohana Bowen MD Radiation Oncologist Radiation Oncology 11/25/18 documented as of this encounter
--- OUTSIDE RECORDS SUMMARY | 2024-06-25 22:14 | XMS_ITS | Encounter Summary ---
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
--- OUTSIDE RECORDS SUMMARY | 2024-06-25 22:14 | XMS_ITS | Encounter Summary ---
Author Organization 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 Unable to assess 11/13/2022 9:18 AM CDT documented as of this encounter Last Filed Vital Signs Vital Sign Reading Time Taken Comments Blood Pressure 122/80 12/05/2022 10:20 AM CDT Pulse 84 12/05/2022 10:20 AM CDT Temperature 36.8 ??C (98.2 ??F) 12/05/2022 10:20 AM C DT Respiratory Rate 17 12/05/2022 10:20 AM CDT Oxygen Saturation 98% 12/05/2022 10:20 AM CDT Inhaled Oxygen Concentration - - Weight - - Height - - Body Mass Index - - documented in this encounter Miscellaneous Notes * Home Health Plan for Next Visit - Sherlyn Orozco RN - 12/05/2022 12:30 PM CDT Reason for today's visit assessment, instruction, pot access Discuss plan of care with pt [...] Site 0.9 % sodium chloride ([facility] sodium chloride 0.9%) injection 10 mL, intravenous, Weekly, First dose on Sat12/07/22 at 1245, On saturday, Indications: line careIndications:line care Given 12/05/2022 12:40 PM CDT 10 mL sodium chloride 0.9 % solution 1,000 mL, intravenous, Weekly, First dose on Sat12/07/22 at 1245, Patient to infuse 1000mL of Normal Saline via CADD Coreas pump set at 300mL/Hr once weekly.- Saturday, Indications: hydrationIndications:hydration Given 12/05/2022 12:40 PM CDT 1,000 mL documented in this encounter Home Health Visit - Care Plan Visit Details Visit Type -SN Home Visit Discipline -Senior Living Problems Problem Description Start Date Status Goals Interventions Safety concerns Disciplines: Senior Living Safety needs related to infusion administration 11/14/2022 Active - 1 problem intervention scheduled/documen omar in this visit Learning/Teachin g Needs - IV Therapy Disciplines: Senior Living Teaching and learning needs for performing home IV therapy 11/14/2022 Active - 6 problem interventions scheduled/documen omar in this visit Monitor patient's vital signs every home health visit Disciplines: SN, PT, OT, ACID PUMPER, PRINT CONTROLLER, Skilled Disciplines Monitor patient's vital signs [...] scheduled/docume nted intervention 2 goal interventions scheduled/documen oamr in this visit Goals Goal Associated Problem Outcome Goal Met? Visit Notes Measure vital signs during every home health visit during episode of care Description: Home concrete buster operator to measure vital signs during every [...] proper handwashing and use of universal precautions Dressing change Description: Skilled Nurse to instruct [...] soco Needs - IV Therapy Completed Port reaccess per rn. sterile prep to insertion site with chlorhexidine x 30 seconds. allow to dry. access with 20g 3/4 inch gripper needle. assess for blood return. secure with sterii strips and covered with occlusive dressing. changed clave with each port reaccess. flush per med list with ns and heparin. covered clave with alcohol swab cap Instruct on IV flush Description: Instruct patient/caregiver in how to perform flushing of IV line according to MD orders or protocol. Problem:Learning/Teac soco Needs - IV Therapy Completed pt verb good understanding of IV flush using push pause method Instruct on IV supplies Description: Instruct patient/caregiver [...] Scheduled documented in this encounter Care Teams Yoga Instructor Relationship Specialty Start Date End Date Julio César Briseno MD PCP - General 10/01/16 Eren Cr MD Referring Physician Medical Oncology 11/25/18 Yohana Bowen MD Radiation Oncologist Radiation Oncology 11/25/18 documented as of this encounter
--- OUTSIDE RECORDS SUMMARY | 2024-06-25 22:14 | XMS_ITS | Encounter Summary ---
Author Organization [facility] Address [address] [place] [address] Phone Care Team Providers Care Systems Administration Analyst Name Role Phone Julio César Briseno MD Primary Care Provider [phone] Eren Cr MD Unavailable Yohana Bowen MD Unavailable Reason for Visit * Reason Onset Date Comments Telephone 12/11/2022 Post Op Med Appr oval Encounter Details Date Type Department Care Team (Late st Contact Info) Description 12/11/2022 Documentation [facility]ol[facility] [address] [place] [address] Xochitl Andersen CMA Telephone (Post Op Med Approval) Social History Tobacco Use Types Packs/Day Years [...] file 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 Cr's Office- [phone]- pt is part of an oncology research study and neededto get her post op meds approved to be taken. She states that per the research team, Amoxicillin, [place] and Ofloxacin are all OK to take post op and will not interfere with the study protocols. documented in this encounter Plan of Treatment Not on file documented as of this encounter Visit Diagnoses Not on filedocumented in this encounter Care Teams Systems Administration Analyst Relationship Specialty Start Date End Date Julio César Briseno MD PCP - General 10/01/16 Eren Cr MD Referring Physician Medical Oncology 11/25/18 Yohana Bowen MD Radiation Oncologist Radiation Oncology 11/25/18 documented as of this encounter
--- OUTSIDE RECORDS SUMMARY | 2024-06-25 22:14 | XMS_ITS | Encounter Summary ---
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 sodium chloride 0.9%) injectionIndication s:line care Infuse 10 mL into a venous catheter once a week On saturday06/20/20 24 amLODIPine (NORVASC) 5 mg tabletIndications:h ypertension Take 0.5 tablets (2.5 mg total) by mouth nightly 07/27/2022 06/11/20 23 ascorbic acid, vitamin C, 500 mg capsuleIndications: supplement Take 1 tablet by mouth actuarial clerk before breakfast 07/04/2016 06/20/20 24 clotrimazole-betame thasone (LOTRISONE) cream Apply 1 Application topically daily as needed (rash) 06/20/20 24 coenzyme [id number] 100-5 mg-unit capsuleIndications: supplement Take 1 tablet by mouth actuarial clerk before breakfast 06/20/20 24 diphenoxylate-atrop ine (LOMOTIL) [...] Fluids every -Heparin to flush 06/20/20 24 INV-[facility] cabozantinib/placeb o (/[id number]) 20 mg tabletIndications:c ancer study Take 1 tablet (20 mg total) by mouth nightly Take on an empty stomach (no food for 2 hours before and 1 hour after each dose).?? Avoid Jas's Wort, grapefruit products and [place] oranges while on treatment. 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) DIFFERENTIAL AUTO Routine 12/13/2022 10: 07 AM CDT 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) CHROMOGRANIN A Routine 12/13/2022 10:07 AM CDT 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) CBC WITH AUTO DIFFERENTIAL Routine 12/13/2022 10:07 AM CDT 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) VITAMIN D 25 HYDROXY Routine 12/13/2022 10:07 AM CDT 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) PHOSPHORUS Routine 12/13/2022 10:07 AM CDT 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) MAGNESIUM STAT 12/13/2022 10:07 AM CDT Neuro-endocrine carcinoma (HCC) LIPID PANEL Routine 12/13/2022 10:07 AM CDT 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) COMPREHENSIVE METABOLIC PANEL STAT 12/13/2022 10:07 AM CDT 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) documented in this encounter Results * (ABNORMAL) eGFR (12/13/2022 10:07 AM CDT) eGFR 38(L) 90 - 130 mL/min/1. 73 m2 [facility] [...] interpretive data was last reviewed 2021. Blood 12/13/2022 10:0 7 AM CDT 12/13/2022 10:07 AM CDT us Eren Cr MD LAB BLOOD ORDERABLES Final Re sult [facility] Department [place] [address] * (ABNORMAL) Differential, auto (12/13/2022 10:07 AM CDT) Neutrophil abs 1.8 1.7 - 6.5 K/cumm [facility] Comment:Testing performed by : [facility], [address] [place] [id number] Imm gran abs 0.0 0.0 - 0.1 K/cumm [facility] Lymphocyte abs 0.4(L) 0.8 - 3.3 K/cumm [facility] Monocyte abs 0.4 0.2 - 0.8 K/cumm [facility] Eosinophil abs 0.2 0.0 - 0.5 K/cumm [facility] Basophil abs 0.0 0.0 - 0.1 K/cumm [facility] Neutrophil pct 64.9 % [facility] Comment: Consistent with previous result Interpretive Data Percent cell count reference ranges are not reported, since discordance with absolute values may lead to misinterpretation of CBC data. Current Interpretive Data was last revised on 2017. Imm gran pct 0.4 % [facility] Comment: Interpretive Data Percent cell count reference ranges are not reported, since discordance with absolute values may lead to misinterpretation of CBC data. Current Interpretive Data was last revised on 2017. Lymphocyte pct 12.5 % [facility] Comment: Interpretive Data Percent cell count reference ranges are not reported, since discordance with absolute values may lead to misinterpretation of CBC data. Current Interpretive Data was last revised on 2017. Monocyte pct 13.6 % [facility] Comment: Interpretive Data Percent cell count reference ranges are not reported, since discordance with absolute values may lead to misinterpretation of CBC data. Current Interpretive Data was last revised on 2017. Eosinophil pct 7.9 % [facility] Comment: Interpretive Data Percent cell count reference ranges are not reported, since discordance with absolute values may lead to misinterpretation of CBC data. Current Interpretive Data was last revised on 2017. Basophil pct 0.7 % [facility] Comment: Interpretive Data Percent cell count reference ranges are not reported, since discordance with absolute values may lead to misinterpretation of CBC data. Current Interpretive Data was last revised on 2017. Blood 12/13/2022 10:0 7 AM CDT 12/13/2022 10:07 AM CDT us Eren Cr MD LAB BLOOD ORDERABLES Final Re sult [facility] [place] [address] * Magnesium (12/13/2022 10:07 AM CDT) Magnesium 1.4 1.4 - 2.5 mg/dL [facility] Comment:Testing performed by : [facility], [address] [facility] [address] Blood 12/13/2022 10:0 7 AM CDT 12/13/2022 10:07 AM CDT us Eren Cr MD LAB BLOOD ORDERABLES Final Re sult [facility] [place] [address] * (ABNORMAL) Lipid panel (12/13/2022 10:07 AM CDT) Cholesterol 161 30 - 199 mg/dL [facility] Comment: Interpretive Data Ages < or [...] Data was last revised on 2018. Triglycerides 183(H) <=149 mg/dL [facility] Comment: Interpretive Data Ages < or [...] Data was last revised on 2018. HDL 49 >=40 mg/dL [facility] Comment: Interpretive Data Ages < or [...] on 2018. LDL, calculated 75 <=129 mg/dL [facility] Comment: Interpretive Data Ages < or [...] was last revised on 2018. Non-HDL Cholesterol 112 mg/dL [facility] Comment: Interpretive Data Ages < or [...] revised on 2018. Chol/HDL ratio 3 [facility] Blood 12/13/2022 10:0 7 AM CDT 12/13/2022 11:35 AM CDT us Eren Cr MD LAB BLOOD ORDERABLES Final Re sult Performing Organization Address [facility] Co de Phone Number [facility] Department [place] [address] * (ABNORMAL) Phosphorus (12/13/2022 10:07 AM CDT) Pathologist [facility] Phosphorus, pl 1.8(L) 2.3 - 4.5 mg/dL [facility] Comment:Testing performed by : [facility], [address] [place] [id number] Blood 12/13/2022 10:0 7 AM CDT 12/13/2022 10:07 AM CDT Eren Cr MD LAB BLOOD ORDERABLES Final Re sult Performing Organization Address City/[facility]/ZIP Co de Phone Number [facility] Department [place] [address] * (ABNORMAL) Vitamin D 25 hydroxy (12/13/2022 10:07 AM CDT) Vitamin D 25-OH 22(L) 30 - 80 ng/mL [facility] Blood 12/13/2022 10:0 7 AM CDT 12/13/2022 11:35 AM CDT us Eren Cr MD LAB BLOOD ORDERABLES Final Re sult [facility] [place] [address] * (ABNORMAL) CBC with auto differential (12/13/2022 10:07 AM CDT) WBC 2.8(L) 3.8 - 9.9 K/cumm [facility] Comment:Testing performed by : [address] [address] Hgb 10.9(L) 11.9 - 15.5 g/dL [facility] Comment:Testing performed by : [address] [address] Hct 33.0(L) 35.6 - 45.5 % [facility] Comment:Testing performed by : [address] [address] Plt 85(L) 150 - 400 K/cumm [facility] Comment:Testing performed by : [address] [address] MPV 10.0 9.1 - 12.3 fL [facility] RBC 3.37(L) 3.90 - 5.20 M/cumm [facility] MCV 97.9(H) 81.3 - 96.4 fL [facility] MCH 32.3 27.1 - 33.3 pg [facility] MCHC 33.0 32.3 - 35.7 g/dL [facility] RDW CV 13.5 11.1 - 14.9 % [facility] RDW SD 47.9 35.7 - 48.1 fL [facility] NRBC abs 0.00 0.00 - 0.01 K/cumm [facility] Blood 12/13/2022 10:0 7 AM CDT 12/13/2022 10:07 AM CDT us Eren Cr MD LAB BLOOD ORDERABLES Final Re sult [facility] [place] [address] * (ABNORMAL) Comprehensive metabolic panel (12/13/2022 10:07 AM CDT) Sodium 140 135 - 145 mmol/L [facility] Comment:Testing performed by : [facility], [address] [facility] [address] Potassium, pl 4.7 3.3 - 4.9 mmol/L [facility] Chloride 109 97 - 110 mmol/L [facility] CO2 26 22 - 32 mmol/L [facility] Anion gap 5 2 - 15 mmol/L [facility] BUN 17 8 - 25 mg/dL [facility] Creatinine 1.43(H) 0.60 - 1.10 mg/dL [facility] Glucose 84 70 - 199 mg/dL [facility] Comment: Interpretive Data Fasting glucose >/= 126 [...] 2022. Calcium 9.6 8.5 - 10.3 mg/dL [facility] Bilirubin, total 0.4 0.1 - 1.2 mg/dL [facility] Protein, pl 6.5 6.5 - 8.5 g/dL [facility] Albumin 3.9 3.5 - 5.0 g/dL [facility] Alk phos 62 40 - 130 Units/L [facility] ALT 20 7 - 45 Units/L [facility] AST 32 10 - 45 Units/L [facility] Blood 12/13/2022 10:0 7 AM CDT 12/13/2022 10:07 AM CDT us Eren Cr MD LAB BLOOD ORDERABLES Final Re sult [facility] Department [place] [address] * (ABNORMAL) Chromogranin A (12/13/2022 10:07 AM CDT) Chromogranin A 1630(H) <93 ng/mL [facility] Comment: Impaired renal or hepatic function or treatment with proton pump inhibitors may result in artifactual elevations of Chromogranin A. ADDITIONAL INFORMATION This test was developed and its performance characteristics determined by [facility] in a manner consistent with [...] a homogeneous time-resolved immunofluorescent assay manufactured by [employer] and performed on the [employer] Kryptor Compact Plus. ? Values obtained with different assay methods or kits may be different and cannot be used interchangeably. ? Test results cannot be interpreted as absolute evidence for the presence or absence of malignant disease. Test Performed by: [address] [address] Collection Development Librarian: Immanuel Novak M.D. Ph.D.; CLIA# [id number] Blood 12/13/2022 10:0 7 AM CDT 12/13/2022 11:37 AM CDT us Eren Cr MD LAB BLOOD ORDERABLES Final Re sult [facility] [place] [address] documented in this encounter Visit Diagnoses Diagnosis Neuroendocrine carcinoma (CMS/HCC) (HCC) Other malignant neoplasm of unspecified site Malignant neoplasm metastatic to liver (HCC) Neuro-endocrine carcinoma (HCC) Other malignant neoplasm of unspecified site documented in this encounter Care Teams Tobacco Baler Relationship Specialty Start Date End Date Julio César Briseno MD PCP - General 10/01/16 Eren Cr MD Referring Physician Medical Oncology 11/25/18 Yohana Bowen MD Radiation Oncologist Radiation Oncology 11/25/18 documented as of this encounter
--- OUTSIDE RECORDS SUMMARY | 2024-06-25 22:14 | XMS_ITS | Encounter Summary ---
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 Unable to assess 11/13/2022 9:18 AM CDT documented as of this encounter Last Filed Vital Signs Vital Sign Reading Time Taken Comments Blood Pressure 114/56 11/24/2022 2:50 PM CDT Pulse 63 11/24/2022 2:50 PM CDT Temperature 36.1 ??C (96.9 ??F) 11/24/2022 2:50 PM CD T Respiratory Rate 17 11/24/2022 2:50 PM CDT Oxygen Saturation 98% 11/24/2022 2:50 PM CDT Inhaled Oxygen Concentration - - Weight - - Height 160 cm (5' 3 ) 11/24/2022 2:50 PM CDT Body Mass Index - - documented in this encounter Plan of Treatment Not on file documented as of this encounter Visit Diagnoses Not on filedocumented in this encounter Administered Medications Inactive Administered Medications - up to 3 most recent administrations Medication Order MAR Action Action Date Dose Rate Site 0.9 % sodium chloride ([facility] sodium chloride 0.9%) injection 10 mL, intravenous, Weekly, First dose on 11/25/22 at 0900, On saturday, Indications: line careIndications:line care Given 11/24/2022 3:15 PM CDT 10 mL heparin 100 unit/mL solution 500 Units, intravenous, Weekly, First dose on 11/25/22 at 0900, Fluids every -Heparin to flush, Indications: Maintain Patency of Indwelling Vascular CatheterIndications:Maintain Patency of Indwelling Vascular Catheter Given 11/24/2022 3:16 PM CDT 5 mL documented in this encounter Home Health Visit - Care Plan Visit Details Visit Type -SN Home Visit Discipline -Penitentiary Problems Problem Description Start Date Status Goals Interventions Safety concerns Disciplines: Penitentiary Safety needs related to infusion administration 11/14/2022 Active - 1 problem intervention scheduled/documen omar in this visit Learning/Teachin g Needs - IV Therapy Disciplines: Penitentiary Teaching and learning needs for performing home IV therapy 11/14/2022 Active - 6 problem interventions scheduled/documen omar in this visit Monitor patient's vital signs every home health visit Disciplines: SN, PT, OT, RURAL HEALTH CONSULTANT, MILL CONTROL OPERATOR, Skilled Disciplines Monitor patient's vital signs [...] visit during episode of care Description: Home emergency department clinician to measure vital signs during every [...] weekly and PRN. Type of line: Port-a-cath Problem:Learning/Teach ing Needs - IV Therapy Completed Accessed port using sterile kit. Flushed easily with normal saline/heparin and NEGATIVE blood return. Deaccessed port; No signs or sympotoms of infection. Instruct on IV supplies Description: Instruct patient/caregiver in how to gather supplies, how to restock IV supplies in the home, prepare supplies, administer IV medication and disconnect IV medication, inspecting solution and supplies before infusing, and waste disposal. Problem:Learning/Teach ing Needs - IV Therapy Scheduled Instruct Infection Prevention Description: Instruct patient/caregiver in strategies to prevent infection. Instruct patient/caregiver on how to recognize signs and symptoms of infection and when to notify HH nurse and/or physician. Problem:Learning/Teach ing Needs - IV Therapy Scheduled IV Administration Description: Skilled Nurse to instruct patient/caregiver on how to properly administer medication saline and heparin. Skilled Nurse to instruct patient/caregiver to administer IV medication as ordered including saline and heparin flushes. Reason for Therapy: Iv hydration. Problem:Learning/Teach ing Needs - IV Therapy Scheduled IV Access [...] of each line upon completion of infusion/flushes. Problem:Learning/Teach ing Needs - IV Therapy Scheduled Instruct on IV flush Description: Instruct patient/caregiver in how to perform flushing of IV line according to MD orders or protocol. Problem:Learning/Teach ing Needs - IV Therapy Scheduled Monitor Vital [...] Scheduled documented in this encounter Care Teams Induction Machine Setter Relationship Specialty Start Date End Date Julio César Briseno MD PCP - General 10/01/16 Eren Cr MD Referring Physician Medical Oncology 11/25/18 Yohana Bowen MD Radiation Oncologist Radiation Oncology 11/25/18 documented as of this encounter
--- OUTSIDE RECORDS SUMMARY | 2024-06-25 22:14 | XMS_ITS | Encounter Summary ---
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 Gender Identity Not on file Sexual Orientation [...] Sign Reading Time Taken Comments Blood Pressure 126/70 12/12/2022 9:00 AM CDT Pulse 67 12/12/2022 9:00 AM CDT Temperature 36.8 ??C (98.2 ??F) 12/12/2022 9:00 AM CD T Respiratory Rate 17 12/12/2022 9:00 AM CDT Oxygen Saturation 97% 12/12/2022 9:00 AM CDT Inhaled Oxygen Concentration - - Weight 75.8 kg (167 lb) 12/12/2022 9:00 AM CDT Height - - Body Mass Index 29.58 11/24/2022 2:50 PM CDT documented in this encounter Miscellaneous Notes * Home Health Plan for Next Visit - Sherlyn Orozco RN - 12/12/2022 9:00 AM CDT Reason for today's visit assessment, instruction, [...] Dose Rate Site 0.9 % sodium chloride ([facility] sodium chloride 0.9%) injection 10 mL, intravenous, Weekly, First dose on Lydia 12/13/22 at 2044, On saturday, Indications: line careIndications:line care Given 12/12/2022 9:00 AM CDT 10 mL documented in this encounter Home Health Visit - Care Plan Visit Details Visit Type -SN Home Visit Discipline -Group Home Problems Problem Description Start Date Status Goals Interventions Safety concerns Disciplines: Group Home Safety needs related to infusion administration 11/14/2022 Active - 1 problem intervention scheduled/documen omar in this visit Learning/Teachin g Needs - IV Therapy Disciplines: Group Home Teaching and learning needs for performing home IV therapy 11/14/2022 Active - 6 problem interventions scheduled/documen omar in this visit Monitor patient's vital signs every home health visit Disciplines: SN, PT, OT, SPECTRAL SCIENTIST, EMPLOYEE RELATIONS 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, Skilled Disciplines Monitor patient's vital signs every [...] visit during episode of care Description: Home engineering specialist to measure vital signs during every home [...] pt verb good understanding of infection prevention proper handwashing, and use of universal precautions Dressing change [...] soco Needs - IV Therapy Completed port reaccess per rn. sterile prep to insertion site with chlorhexidine x 30 seconds. allow to dry. access with 20g 3/4 inch gripper needle. secure with sterii strips and cover with occlusive dressing. clave changed. clave covered with alcohol swab caps Instruct on IV [...] Scheduled documented in this encounter Care Teams Associate School Psychologist Relationship Specialty Start Date End Date Julio César Briseno MD PCP - General 10/01/16 Eren Cr MD Referring Physician Medical Oncology 11/25/18 Yohana Bowen MD Radiation Oncologist Radiation Oncology 11/25/18 documented as of this encounter
--- OUTSIDE RECORDS SUMMARY | 2024-06-25 22:14 | XMS_ITS | Encounter Summary ---
Author Organization [facility] Address [address] [place] [address] Phone Care Team Providers Care Waste Hand Name Role Phone Julio César Briseno MD Primary Care Provider Eren Cr MD Unavailable [phone] Yohana Bowen MD Unavailable Reason for Visit * Reason Onset Date Comments post operative medications 12/11/2022 Encounter Details Date Type Department Care Team (Late st Contact Info) Description 12/11/2022 Telephone [facility] Oncology [address] [place] [address] [place] [address] [place], [place] [id number] post operative medications Social History Tobacco Use Types Packs/Day Years [...] file 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 Rojas's office called to let us know that following patient's tympanoplasty scheduled for 12/17 she will be prescribed Amoxicillin 875 mg bid x 5 days, [place] 5/325 for pain, and Ofloxacin ear gtts. All medications okay to take per clinical research team, information relayed to Pamela, message left on voicemail. documented in this encounter Plan of Treatment Not on file documented as of this encounter Visit Diagnoses Not on filedocumented in this encounter Care Teams Waste Hand Relationship Specialty Start Date End Date Julio César Briseno MD PCP - General 10/01/16 Eren Cr MD Referring Physician Medical Oncology 11/25/18 Yohana Bowen MD Radiation Oncologist Radiation Oncology 11/25/18 documented as of this encounter
--- OUTSIDE RECORDS SUMMARY | 2024-06-25 22:14 | XMS_ITS | Encounter Summary ---
Author Organization [facility] Address [address] [place] [address] Phone Care Team Providers Care Agricultural Appraiser Name Role Phone Julio César Briseno MD Primary Care Provider Eren Cr MD Unavailable [phone] Yohana Bowen MD Unavailable Reason for Visit * Reason Comments OP Infusion Encounter Details Date Type Department Care Team (Late st Contact Info) Description 12/11/2022 1:15 PM CDT Infusion [facility] Oncology [address] [place] [address] Neuroendocrine carcinoma (HCC) (Primary Dx); Dehydration Social [...] on file 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 Gender Identity Not on file Sexual [...] Sign Reading Time Taken Comments Blood Pressure 115/60 12/11/2022 1:16 PM CDT Pulse 65 12/11/2022 1:16 PM CDT Temperature 36.4 ??C (97.5 ??F) 12/11/2022 1:16 PM CD T Respiratory Rate 18 12/11/2022 1:16 PM CDT Oxygen Saturation 97% 12/11/2022 1:16 PM CDT Inhaled Oxygen Concentration - - Weight 75.4 kg (166 lb 3.2 oz) 12/11/2022 1:16 P M CDT Height - - Body Mass Index 29.44 11/24/2022 2:50 PM CDT documented in this encounter Nursing Notes * Marlen Alfaro RN - 12/11/2022 1:15 PM CDT Oncology Nursing Note [facility] La Chung is a 72 y.o. female who presents for 1L NS hydration. Pre-treatment Nursing Assessment Nursing Assessment Appetite: Good Diarrhea: Yes (ostomy) Constipation: No Existing Patients: Any falls since your last visit?: No Fatigue: Constant Mouth Sores: No Nausea/Vomiting: Yes (vomited twice last week. feels relief with vomiting.) Neurological symptoms: No Pain: No Peripheral Neuropathy: No Shortness of Breath?: Yes (w/exertion) Lungs auscultated PRN: No Pt is on oxygen?: No Skin Condition/Temp: Warm, Dry Swelling: No BP: 115/60 Temp: 36.4 ??C (97.5 ??F) Temp src: Temporal Pulse: 65 Resp: 18 SpO2: 97 % Weight: 75.4 kg (166 lb 3.2 oz) Treatment Patient: met treatment parameters Pre [...] by: Spouse Discharged To: Home in stable condition documented [...] mL/hr, Administer over 2 Hours, Once, On Sat12/11/22 at 1400, For 1 doseIndications:Neuroendocr ine carcinoma (HCC),Dehydration New Bag 12/11/2022 1:29 PM CDT 1,000 mL 500 mL/hr documented in this encounter Orders Medications Ordered That Brett ht Not Have Been Administered Count Last Ordered Date First Ordered Date sodium chloride 0.9% bolus 1,000 mL 1 12/11 documented in this encounter Care Teams Agricultural Appraiser Relationship Specialty Start Date End Date Julio César Briseno MD PCP - General 10/01/16 Eren Cr MD Referring Physician Medical Oncology 11/25/18 Yohana Bowen MD Radiation Oncologist Radiation Oncology 11/25/18 documented as of this encounter
--- OUTSIDE RECORDS SUMMARY | 2024-06-25 22:14 | XMS_ITS | Encounter Summary ---
Author Organization 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) Procedures [place] OCTREOTIDE INJECTION, DEPOT Octreotide 28 Day Cycles - Carcinoid Eren Cr MD [address] [facility] [address] [place] [address] Phone: tel: fax: [facility] [address] [address] Phone: tel: fax: Referral ID Status Reason Start Date Expiration Date V isits Requested Visits Authorized [id number] Authorized 11/28/2017 02/05/2025 1 150 Encounter Details Date Type Department Care Team (Late st Contact Info) Description 12/13/2022 10:30 AM CDT Office Visit [facility] Oncology [address] [place] [address] [place] [address] Eren Cr MD [address] [facility] [address] [place] [address] Neuroendocrine carcinoma (CMS/HCC) (HCC) (Primary Dx); Malignant [...] on file 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 MEDICAL ONCOLOGY OUTPATIENT ROV NOTE DATE OF VISIT: 12/13/2022 DIAGNOSIS: well differentiated neuroendocrine tumor of ileum [...] lesions and peritoneal implants; no new findings. 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 She is accompanied by her spouse today. She has been on a clinical trial with 20 mg cabozantinib/placebo daily. She has one episode of vomiting/nausea grade 1 not related to study meds. She also has baseline grade 1 SOB not related to study medication. Today she reports feeling well with no symptoms or concerns. She denies any headaches, seizures or other associated symptoms. She reports a stable energy level and appetite. She denies abdominal pain, nausea, vomiting, constipation, fevers, chills, chest pain, cough, bleeding. REVIEW OF SYSTEMS: A complete review of systems was performed and positive and pertinent negative responses are documented in the history of present illness All other systems were negative. PHYSICAL EXAM: ECOG PS: 1 VITALS: BP 135/69 (BP Location: Left arm) Pulse 64 Temp 36.3 ??C (97.4 ??F) (Temporal) Resp 18 Wt 76.9 kg (169 lb 9.6 oz) SpO2 98% BMI 30.04 kg/m?? GEN: Calm, conversant, well-appearing female in [...] No rashes over exposed skin. NEURO: A&Ox4, president/gm production & live experiences grossly intact by conversation, moving all extremities well, no focal deficits appreciated PSYCH: Mood euthymic, affect appropriate and congruent, speech clear and goal-directed LABORATORY: I personally reviewed all laboratories and discussed with patient during office visit, selected values included below. Hematology Lab History Latest Ref Rng & Units 09/06/2022 13:57 10/18/2022 10:46 11/15/2022 13:30 12/13/2022 10:07 Labs - Hematology WBC 3.8 - 9.9 K/cumm 4.0 3.5 3.5 2.8 Total Hb, POC 11.9 - 15.5 g/dL 11.3 10.3 10.7 10.9 Hct 35.6 - 45.5 % 33.2 31.8 32.4 33.0 Plt 150 - 400 K/cumm 102 117 98 85 Neutrophil abs 1.7 - 6.5 K/cumm 2.4 2.1 2.1 1.8 Lymphocytes, abs 0.8 - 3.3 K/cumm 0.7 0.7 0.5 0.4 Chem/LFT Lab History Latest Ref Rng & Units 11/15/2022 13:30 12/11/2022 12:33 12/12/2022 16:08 12/13/2022 10:07 Labs-Chem/LFT Sodium 135 - 145 mmol/L 136 140 Creatinine 0.60 - 1.10 mg/dL 1.20 1.43 Bilirubin, total 0.1 - 1.2 mg/dL 0.5 0.4 AST 10 - 45 Units/L 33 32 ALT 7 - 45 Units/L 22 20 CrCl- Actual Body Weight (Cockcroft-Gault) 50.7 28 36.7 41.9 Tumor Marker History Latest Ref Rng & Units 08/07/2022 10:48 09/06/2022 13:57 10/18/2022 10:46 11/15/2022 13:30 Tumor Markers Chromogranin A <93 ng/mL 1094 1202 1393 1170 RADIOGRAPHIC/DIAGNOSTIC REVIEW: CT chest abdomen pelvis with contrast 09/05/2022 [...] -Her last CT scans were done on 09/05/2022 showing stable disease. Her scans were held due to her elevated creatinine. -we will hydrate and hopefully proceed with CT today -She continues on Octreotide LAR 30 mg; due for injection today. - I reviewed her labs today and they are adequate to proceed with cycle 18 day 1 of CABINET study. Will continue on 20 mg dosing of cabozantinib/placebo. She is agreeable to proceed with treatment. - Chromogranin A pending - She will return for follow up in 4 weeks per protocol. - Scans resshceuled 2. Bone metastases: - on Xgeva. Phos 1.8 today; Ca 9.6, and Creatinine 1.43 hold due to creatinine 3. Diarrhea - prn immodium and lomotil 4. Hypothyroidism with TSH elevated - continue levothyroxine at 88 mcg daily 5. Vitamin D insufficiency/Deficiency: - 2000 international units daily recommended per nephrology 6. Vision change - No longer occurring. 7. Renal function - creatinine 1.43 -follows with Nephrology 8. Right TM perforation - Follow up with ENT 9. Hyperparathyroidism - Calcium 9.6 - may be secondary to CKD, denosumab use. - On vit d supplementation. - nephrology following. All of her and questions were answered to their satisfaction and they verbalized understanding. 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) Cancer Disease Assessment for mCODE Disease status: stable Reason for disease status: symptoms, physical exam, lab results Date of cancer disease status assessment: 11/15/22 Neuro-endocrine carcinoma (HCC) Cancer Disease Assessment for [...] ICARE data: No change in treatment plan Disease Status Documentation for mCODE Neoplastic Disease Neuroendocrine carcinoma (CMS/HCC) (HCC) Cancer Disease Assessment for mCODE Disease status: stable Reason for disease status: physical exam, symptoms, lab results Date of cancer disease status assessment: 11/15/22 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 ADDITIONAL INFORMATION This test was developed and its performance characteristics determined by [facility] in a manner consistent with CLIA [...] a homogeneous time-resolved immunofluorescent assay manufactured by [employer] and performed on the [employer] KrPraedicator Compact Plus. ? Values obtained with different assay methods or kits may be different and cannot be used interchangeably. ? Test results cannot be interpreted as absolute evidence for the presence or absence of malignant disease. Test Performed by: [place] [address] Ceramic Tile Installation Helper: Immanuel Novak M.D. Ph.D.; CLIA# [id number] Blood 01/10/2023 9:26 AM CDT 01/10/2023 11:16 AM CDT Eren Cr MD LAB BLOOD ORDERABLES Final Re sult Performing Organization Address [facility] Co de Phone Number [facility] [place] [address] * (ABNORMAL) Vitamin D 25 hydroxy (01/10/2023 9:26 AM CDT) Pathologist [facility] Vitamin D 25-OH 24(L) 30 - 80 ng/mL [facility] Blood 01/10/2023 9:26 AM CDT 01/10/2023 10:40 AM CDT Eren Cr MD LAB BLOOD ORDERABLES Final Re sult Performing Organization Address City/[facility]/ZIP Co de Phone Number [facility] [place] [place] [address] * (ABNORMAL) Phosphorus (01/10/2023 9:26 AM CDT) Phosphorus, pl 2.2(L) 2.3 - 4.5 mg/dL [facility] Comment:Testing performed by : [facility], [address] [place] [id number] Blood 01/10/2023 9:26 AM CDT 01/10/2023 9:27 AM CDT us Eren Cr MD LAB BLOOD ORDERABLES Final Re sult [facility] Department [place] [address] * (ABNORMAL) Lipid panel (01/10/2023 9:26 AM CDT) Pathologist [facility] Cholesterol 171 30 - 199 mg/dL [facility] Comment: Interpretive Data Ages < or [...] on 2018. HDL 62 >=40 mg/dL [facility] Comment: Interpretive Data [...] 2018. LDL, calculated 75 <=129 mg/dL [facility] Comment: Interpretive Data [...] revised on 2018. Non-HDL Cholesterol 109 mg/dL [facility] Comment: Interpretive Data Ages < or = [...] last revised on 2018. Chol/HDL ratio 3 [facility] Blood 01/10/2023 9:26 AM CDT 01/10/2023 10:40 AM CDT us Eren Cr MD LAB BLOOD ORDERABLES Final Re sult Performing Organization Address City/[facility]/ZIP Co de Phone Number [facility] Department [place] [address] * (ABNORMAL) TSH (01/10/2023 9:26 AM CDT) Thyroid Stimulating Hormone 8.70(H) 0.30 - 4.20 mcIUnit/mL [facility] Blood 01/10/2023 9:26 AM CDT 01/10/2023 10:40 AM CDT us Eren Cr MD LAB BLOOD ORDERABLES Final Re sult Performing Organization Address City/[facility]/ZIP Co de Phone Number [facility] Department [place] [address] * Magnesium (01/10/2023 9:26 AM CDT) Magnesium 1.4 1.4 - 2.5 mg/dL [facility] Comment:Testing performed by : [facility], [address] [place] [id number] Blood 01/10/2023 9:26 AM CDT 01/10/2023 9:27 AM CDT Eren Cr MD LAB BLOOD ORDERABLES Final Re sult [facility] Department [place] [address] * (ABNORMAL) Comprehensive metabolic panel (01/10/2023 9:26 AM CDT) Sodium 138 135 - 145 mmol/L [facility] Comment:Testing performed by : [facility], [address] [place] [address] Potassium, pl 4.0 3.3 - 4.9 mmol/L [facility] Chloride 108 97 - 110 mmol/L [facility] CO2 25 22 - 32 mmol/L [facility] Anion gap 5 2 - 15 mmol/L [facility] BUN 14 6 - 25 mg/dL [facility] Creatinine 1.37(H) 0.60 - 1.10 mg/dL [facility] Glucose 124 70 - 199 mg/dL [facility] Comment: Interpretive Data Fasting glucose >/= 126 [...] 2022. Calcium 10.0 8.5 - 10.3 mg/dL [facility] Bilirubin, total 0.5 0.1 - 1.2 mg/dL [facility] Protein, pl 6.5 6.5 - 8.5 g/dL [facility] Albumin 4.1 3.5 - 5.0 g/dL [facility] Alk phos 65 40 - 130 Units/L [facility] ALT 24 7 - 45 Units/L [facility] AST 36 10 - 45 Units/L [facility] Blood 01/10/2023 9:26 AM CDT 01/10/2023 9:27 AM CDT us Eren Cr MD LAB BLOOD ORDERABLES Final Re sult [facility] Department [place] [address] * (ABNORMAL) CBC with auto differential (01/10/2023 9:26 AM CDT) WBC 2.8(L) 3.8 - 9.9 K/cumm [facility] Comment:Testing performed by : [address] [address] Hgb 11.2(L) 11.9 - 15.5 g/dL [facility] Comment:Testing performed by : [address] [address] Hct 33.7(L) 35.6 - 45.5 % [facility] Comment:Testing performed by : [address] [address] Plt 93(L) 150 - 400 K/cumm [facility] Comment:Testing performed by : [address] [address] MPV 10.3 9.1 - 12.3 fL [facility] RBC 3.46(L) 3.90 - 5.20 M/cumm [facility] MCV 97.4(H) 81.3 - 96.4 fL [facility] MCH 32.4 27.1 - 33.3 pg [facility] MCHC 33.2 32.3 - 35.7 g/dL [facility] RDW CV 14.8 11.1 - 14.9 % [facility] RDW SD 52.6(H) 35.7 - 48.1 fL [facility] NRBC abs 0.00 0.00 - 0.01 K/cumm [facility] Blood 01/10/2023 9:26 AM CDT 01/10/2023 9:27 AM CDT us Eren Cr MD LAB BLOOD ORDERABLES Final Re sult [facility] Department [place] [address] documented in this encounter Visit Diagnoses Diagnosis Neuroendocrine carcinoma (CMS/HCC) (HCC)- Primary Other malignant neoplasm of unspecified site 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) Other malignant neoplasm of unspecified site documented in this encounter Orders Appointment Requests Count Last Ordered Date Fi rst Ordered Date ONCBCN INJECTION APPOINTMENT REQUEST 12/2022 ONCBCN CLINIC APPOINTMENT REQUEST 1 023 documented in this encounter Care Teams Offset Lithographic Press Setter Relationship Specialty Start Date End Date Julio César Briseno MD PCP - General 10/01/16 Eren Cr MD Referring Physician Medical Oncology 11/25/18 Yohana Bowen MD Radiation Oncologist Radiation Oncology 11/25/18 documented as of this encounter
--- OUTSIDE RECORDS SUMMARY | 2024-06-25 22:14 | XMS_ITS | Encounter Summary ---
Author Organization [facility] [employer] [facility] Address [address] [place] [address] Phone Care Team Providers Care Sticker On Name Role Phone Julio César Briseno MD Primary Care Provider Eren Cr MD Unavailable [phone] Yohana Bowen MD Unavailable Reason for Visit * Reason Onset Date Comments elevated POC creatinine 12/11/2022 Encounter Details Date Type Department Care Team (Late st Contact Info) Description 12/11/2022 Telephone [facility] Oncology [address] [place] [address] Eren Cr MD [address] [place], [place] [id number] elevated POC creatinine Social History Tobacco Use Types Packs/Day Years [...] 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 Dr. Aviles was notified and CT scan was cancelled. Patient went to [place] infusion for 1 liter of normal saline for elevated creatinine. CT scan rescheduled for 12/12/22. Research team notified of delayed scan. documented in this encounter Plan of Treatment Not on file documented as of this encounter Visit Diagnoses Not on filedocumented in this encounter Care Teams Sticker On Relationship Specialty Start Date End Date Julio César Briseno MD PCP - General 10/01/16 Eren Cr MD Referring Physician Medical Oncology 11/25/18 Yohana Bowen MD Radiation Oncologist Radiation Oncology 11/25/18 documented as of this encounter
--- OUTSIDE RECORDS SUMMARY | 2024-06-25 22:14 | XMS_ITS | Encounter Summary ---
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 Gender Identity Not on file Sexual Orientation [...] Sign Reading Time Taken Comments Blood Pressure 120/53 11/24/2022 11:25 AM CDT Pulse 84 11/24/2022 11:20 AM CDT Temperature 36.1 ??C (96.9 ??F) 11/24/2022 11:20 AM C DT Respiratory Rate 18 11/24/2022 11:20 AM CDT Oxygen Saturation 98% 11/24/2022 11:20 AM CDT Inhaled Oxygen Concentration - - Weight - - Height - - Body Mass Index - - documented in this encounter Miscellaneous Notes * Home Health Plan for Next Visit - Zoë Griffith RN - 11/24/2022 10:57 AM CDT Reason for today's visit ASSESSMENT, LINE CARE, STARTED HER IVF Discuss plan of care with CLIENT AND CAREGIVER Discharge planning ONCE GOAL MET AND STATUS STABLE Plan for next visit ASSESSMENT, LINE CARE, START IVF, CLIENT TO CALL OFFICE AND LET HOMECARE KNOW SHE IS BACK FROM VACATION documented in this encounter Plan of Treatment Not on file documented as of this encounter Visit Diagnoses Not on filedocumented in this encounter Administered Medications Inactive Administered Medications - up to 3 most recent administrations Medication Order MAR Action Action Date Dose Rate Site 0.9 % sodium chloride ([facility] sodium chloride 0.9%) injection 10 mL, intravenous, Weekly, First dose on Sat11/30/22 at 0930, On saturday, Indications: line careIndications:line care Given 11/24/2022 11:15 AM CDT 10 mL sodium chloride 0.9 % solution 1,000 mL, intravenous, Weekly, First dose on Sat11/30/22 at 0930, Patient to infuse 1000mL of Normal Saline via CADD Coreas pump set at 300mL/Hr once weekly.- Saturday, Indications: hydrationIndications:hydration Given 11/24/2022 11:15 AM CDT 1,000 mL documented in this [...] home health visit Disciplines: SN, PT, OT, VOCATIONAL EXAMINER, PHP WORDPRESS DEVELOPER, Skilled Disciplines Monitor patient's vital signs every [...] visit during episode of care Description: Home program clinician to measure vital signs during every [...] MD and infusion service Problem:Safety concerns Scheduled IV Administration Description: Skilled Nurse to instruct patient/caregiver on how to properly administer medication saline and heparin. Skilled Nurse to instruct patient/caregiver to administer IV medication as ordered including saline and heparin flushes. Reason for Therapy: Iv hydration. Problem:Learning/Tea cira Needs - IV Therapy Completed AFTER PORT ACCESSED, STARTED CLIENT IVF VIA CADD PUMP FOR HYDRATION BEFORE SHE LEAVES ON HER BUS TOUR VACATION Dressing change Description: Skilled Nurse to instruct [...] weekly and PRN. Type of line: Port-a-cath Problem:Learning/Tea cira Needs - IV Therapy Completed CLEANED AREA WITH STERILE PORT KIT, AND ACCESSED PORT WITH STEIRLE PORT NEEDLE 20G ,1 INCH, NO S/S OF INFECTION; TEACHING DONE TO CALL MD WITH ANY S/S OF INFECTION; REDNESS, SWELLING OR COLORED PURULENT DRAINAGE. CLIENT VERBALIZED UNDERSTANDING Instruct on IV supplies Description: Instruct patient/caregiver in how to gather supplies, how to restock IV supplies in the home, prepare supplies, administer IV medication and disconnect IV medication, inspecting solution and supplies before infusing, and waste disposal. Problem:Learning/Tea cira Needs - IV Therapy Scheduled Instruct Infection Prevention Description: Instruct patient/caregiver in strategies to prevent infection. Instruct patient/caregiver on how to recognize signs and symptoms of infection and when to notify HH nurse and/or physician. Problem:Learning/Tea cira Needs - IV Therapy Scheduled IV Access [...] each line upon completion of infusion/flushes. Problem:Learning/Tea cira Needs - IV Therapy Scheduled Instruct on IV flush Description: Instruct patient/caregiver in how to perform flushing of IV line according to MD orders or protocol. Problem:Learning/Tea cira Needs - IV Therapy Scheduled Monitor Vital Signs Description: Monitor blood pressure, pulse, oxygen saturation, respirations Problem:Monitor patient's vital signs every home health visit Goal:Measure vital signs during every home health visit during episode of care Completed B/P LOW , SEE TELEPHONE COMMUNITCATION TO MD REGARDING S/S AND MED CHANGES Educate Patient on Infection Prevention Description: Instruct [...] Scheduled documented in this encounter Care Teams Ager Tender Relationship Specialty Start Date End Date Julio César Briseno MD PCP - General 10/01/16 Eren Cr MD Referring Physician Medical Oncology 11/25/18 Yohana Bowen MD Radiation Oncologist Radiation Oncology 11/25/18 documented as of this encounter
--- OUTSIDE RECORDS SUMMARY | 2024-06-25 22:14 | XMS_ITS | Encounter Summary ---
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) Procedures [place] OCTREOTIDE INJECTION, DEPOT Octreotide 28 Day Cycles - Carcinoid Eren Cr MD [address] [place] [address] Phone: tel: fax: [address] [address] Phone: tel: fax: Referral ID Status Reason Start Date Expiration Date V isits Requested Visits Authorized [id number] Authorized 11/28/2017 02/05/2025 1 150 Encounter Details Date Type Department Care Team (Latest Contact Info) Description 12/13/2022 10:00 AM CDT Clinical Support [facility] Oncology [address] [place] [phone] 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 Dx); Neuroendocrine carcinoma (CMS/HCC) (HCC) Social History Tobacco [...] on file Legal 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 May repeat if patency not achieved after 2 hours. Call provider if the lumen is still occluded after 2 unsuccessful instillation attempts . Reconstitute 2 mg vial with 2.2 mL SWFI. Resulting solution is ~1 mg/mL. DO NOT SHAKE., Indications: Occluded Arteriovenous CannulaIndications:Occluded Arteriovenous Cannula Given 12/13/2022 10:08 AM CDT 2 mg documented in this encounter Orders Medications Ordered That Brett ht Not Have Been Administered Count Last Ordered Date First Ordered Date alteplase (CATHFLO ACTIVASE) injection 2 mg 1 12/13/2022 Appointment Requests Count Last Ordered Date Fi rst Ordered Date ONCBCN LAB APPOINTMENT 1 12/13/2022 documented in this encounter Care Teams Auto Hiker Relationship Specialty Start Date End Date Julio César Briseno MD PCP - General 10/01/16 Eren Cr MD Referring Physician Medical Oncology 11/25/18 Yohana Bowen MD Radiation Oncologist Radiation Oncology 11/25/18 documented as of this encounter
--- OUTSIDE RECORDS SUMMARY | 2024-06-25 22:14 | XMS_ITS | Encounter Summary ---
Author Organization [facility] Healthcare Address [address] [place] [address] Care Team Providers Care Buyer Broker Name Role Phone Julio César Briseno MD Primary Care Provider [phone] Eren Cr MD Unavailable [phone] Yohana Bowen MD Unavailable Encounter Details Date Type Department Care Team (Late st Contact Info) Description 12/17/2022 11:59 PM CDT Anesthesia Event [facility] Operating Room [address] [place] [id number] Soniya Urias NP [address] [facility] [address] [place] [address] Anesthesia Record Procedure Summary Procedure Name Responsible Anesthesiologist Anesthesia Start Time Anesthesia Stop Time RIGHT TYMPANOPLASTY (canceled) Events No events on file. Meds * Agents No agents on file. * Blood No blood administrations on file. Lines, Drains, and Airways No LDAs on file. 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 Center for Preoperative Assessment and Planning Preoperative Evaluation Record Evaluation type/location: TPAP from [facility] Planned procedure site: [facility] Date: 12/05/22 NOTE: This note represents a preoperative evaluation initiated via telephone interview. NO PHYSICALEXAM was performed at the time of initial assessment. A physical exam may be added to this note anddocumented below. Anesthesia Evaluation La Chung is a 72 y.o. 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 Past Medical History Information obtained from: patient and chart. 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 Asymptomatic. Renal / + Renal disease (stage III CKD) - CKD Pertinent negatives: dialysis Musculoskeletal/Pain + Osteoarthritis Endocrine / Other + Thyroid disease - hypothyroidism + Obesity (BMI >30) + Cancer history (rota-m-rnzr- right anterior chest wall)- s/p chemo and current cancer. 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 Pertinent negatives: diabetes mellitus; transplanted organ and infectious disease Functional Capacity Functional capacity: <4 METs Comments: Decrease exercise capacity secondary to MARTINEZ and fatigue from chemotherapy Review of Systems + SOB (MARTINEZ with walking any distance, with no associated symptoms, last less than a minute, unchanged since 2019) + previous transfusion (prior history of blood transfusion in the past, denies transfusion reaction) + dizziness (resolved since discontinue amlodpine) + muscle weakness (generalized, leg and feet cramps at night) + hard of hearing (poor right ear, low hearing left ear) + vision loss (wears corrective lenses) + nausea/vomiting (normal regimen - vomiting episode 2 days post IVF infusion, unchanged since 2019) + diarrhea (since having colostomy, receiving 1L IVF weekly) Pertinent negatives: productive cough; recent cold/flu; fever; chest pain; orthopnea; PND; bleedingproblems and syncope PAT Summary and Plans Cardiac risk classification of planned procedure: low cardiac risk. Disposition: not suitable for outpatient surgery center. Initial preoperative evaluation discussed with: Shai Ramesh III, MD PhD Additional comments: La Chung is a 72 y.o. female who is being evaluated prior to undergoing alow cardiac risk surgery. Revised Cardiac Risk Index factors are (none) for a total RCRI of 0 out of 6. Functional capacity is <4 METs (specifically:Decrease exercise capacity secondary to MARTINEZ andfatigue from chemotherapy). >>pt's grandson recently diagnosed with possible malignant hyperthermia. Reviewed of 2019 ex lap anesthetic record, pt received volatile agents without issue. >>pt receives 1L IVF every Saturday for dehydration >>pt states has been prescribed by prescribing physician to discontinue cabozantinib/placebo 3 days prior surgery and 3 days after surgery. Obstructive sleep apnea (KYLER) screening status is STOP-BANG incomplete at 3-4 suggesting MODERATE risk for KYLER. Neck circumference pending. May need KYLER order set initiated if Co2 >27. This assessment was performed via telephone. Therefore the physical exam has been deferred to the day of surgery team. The patient was provided with preoperative instructions for their medications. Patient instructions were provided by telephone and electronically sent via [employer] Patient verbalized understanding of instructions. The patient is currently scheduled for their procedure at: [facility]. The case was discussed with myself, CPAP attending Dr. Ramesh, surgeon's office Dr. Rojas and [facility] ASC Leader Dr. Estes. 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 We recommend that the patient's surgery be performed at one of the following locations: [facility] OR (Pods 1/2/3/5), [place] [facility] Pod 4 and [facility] This assessment was relayed to the surgical/procedural team by: [employer] message. Please call the CPAP clinic at [phone] with any questions. Blood bank needs for day of procedure: No type and screen needed Pending labs/tests include: None Labs reviewed dated 11/15/2022- CBC- WBC 3.5, HH 10.7/32.4, PLT 98,000 CMP- BUN/Cr 19/1.20, otherwise unremarkable eGFR 48 mL/min TPAP assessment complete. Preoperative evaluation performed by Bailee Najera NP on 12/05/22 at 3:38 PM. Patient Active Problem List Diagnosis ??? Neuroendocrine carcinoma (CMS/HCC) (HCC) ??? Malignant neoplasm metastatic to liver (HCC) ??? Neuro-endocrine carcinoma (HCC) ??? 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 Large bowel obstruction (CMS/HCC) (HCC) ??? Hypocalcemia ??? Stage 3b chronic kidney disease (HCC) ??? Acute blood loss anemia ??? 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 Epithelial hyperplasia ??? Abdominal pain ??? Abnormal findings on diagnostic imaging of breast ??? Benign essential hypertension ??? Blepharitis ??? Cough ??? Diarrhea ??? Enthesopathy of knee ??? Excess or deficiency of vitamin D ??? Family history of malignant neoplasm of other organs or systems ??? H/O actinic keratosis ??? Family history of melanoma ??? Knee pain ??? Low back pain ??? Mass of ovary ??? Mixed incontinence ??? Neuroendocrine tumor ??? Obesity with body mass index 30 or greater ??? Osteoarthritis of knee ??? Personal history of diseases of skin or subcutaneous tissue ??? Pure hypercholesterolemia ??? Shoulder joint pain ??? Colostomy complication, unspecified (HCC) ??? Pseudoepitheliomatous hyperplasia ??? Closed displaced fracture of head of right radius ??? Anemia ??? Hypophosphatemia ??? Hypomagnesemia ??? Hearing loss ??? Muscle weakness ??? Nausea ??? Vertigo ??? Depressive disorder ??? Dehydration ??? Proctitis ??? Thrombocytopenia (HCC) Past Medical History: Diagnosis Date ??? Arthritis ??? Family history of malignant hyperthermia grandson - questionable ??? Generalized headaches ??? GERD (gastroesophageal reflux disease) ??? History of hemorrhoids History of hemorrhoids - (Added by TW Conv) ??? 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 HL (hearing loss) 2012 ??? Hypercholesteremia ??? Hypertension ??? Motion sickness ??? Obesity ??? PONV (postoperative nausea and vomiting) controlled with IV medication ??? Status post chemotherapy 09/2019 immunotherapy ??? Status post radiation therapy 09/2019 Past Surgical History: Procedure Laterality Date ??? APPENDECTOMY 1992 ??? BILATERAL SALPINGOOPHORECTOMY 10/03/2015 ??? BIOPSY 10/03/2015 Peritoneal ??? COLONOSCOPY 07/2015 ??? CONTRAST INJECTION EVALUATION CENTRAL VENOUS ACCESS DEVICE N/A 06/12/2022 ??? CONTRAST INJECTION EVALUATION CENTRAL VENOUS ACCESS DEVICE N/A 09/04/2022 ??? EXAMINATION UNDER ANESTHESIA 05/30/2020 Examination under anesthesia and fulguration of pseudo epithelial hyperplasia ??? EXPLORATORY LAPAROTOMY 04/13/2019 Exploratory laparotomy with creation of divided loop colostomy ??? GALLBLADDER SURGERY unknown date ? ? IR PICC LINE PLACEMENT > 5 YEARS N/A 12/23/2018 ? ? IR PICC LINE PLACEMENT > 5 YEARS N/A 02/17/2019 ? ? IR PICC LINE PLACEMENT > 5 YEARS N/A 06/09/2019 ? ? IR PICC LINE PLACEMENT > 5 YEARS N/A 08/04/2019 ??? OMENTECTOMY 10/03/2015 Partial ? ? PORT PLACEMENT CHEST >5 YEARS N/A 09/14/2021 ??? RIGHT COLECTOMY 10/03/2015 Right colectomy ??? STOMA REVISION 07/2019 Fulguration of parastomal hyperplasia ??? TONSILLECTOMY 1956 Tonsillectomy - (Added by SONIYA Beyer) ??? TOTAL ABDOMINAL HYSTERECTOMY 1991 appendix removed during this procedure ??? TOTAL KNEE ARTHROPLASTY Left 2015 OB History 6 Para 4 Term 4 0 AB 2 Living 4 SAB 2 IAB Ectopic Multiple Live Births Allergies Allergen Reactions ??? Morphine Blisters ??? Ezetimibe-Simvastatin Muscle pain and Unknown Muscle weakness ??? Ramipril Cough Med List Status: Nurse Complete Set By: Marlen Leyva RN at 11/21/2022 4:12 PM Taking? Last Dose Start Date End Date Provider 0.9 % sodium chloride ([facility] sodium chloride 0.9%) injection Past Week -- -- Levon Kee MD amLODIPine (NORVASC) 5 mg tablet 11/21/2022 07/27/22 -- Levon Kee MD ascorbic acid, vitamin C, 500 mg capsule 11/21/2022 07/04/16 -- Levon Kee MD cholecalciferol (VITAMIN D-3) 1,000 unit 11/21/2022 11/16/22 11/16/23 Alejo Mi MD Take 1 tablet/capsule (1,000 Units total) by mouth daily Patient taking differently: Take 1 tablet/capsule (1,000 Units total) by mouth every morning clotrimazole-betamethasone (LOTRISONE) cream -- -- -- Levon Kee MD coenzyme [id number] E 100-5 mg-unit capsule 11/21/2022 -- -- Levon Kee MD denosumab (Xgeva) 120 mg/1.7 mL (70 mg/mL) injection Past Week -- -- Levon Kee MD diphenoxylate-atropine (LOMOTIL) 2.5-0.025 mg per tablet Past Week 02/14/21 -- Eren Cr Jr., MD Take 1 tablet by mouth 4 (four) times a day as needed for diarrhea Notes: Patient states she is not currently taking medication DULoxetine DR (CYMBALTA) 30 mg capsule 11/21/2022 04/24/19 -- Laura Lopes MD Take 1 capsule (30 mg total) by mouth daily Patient taking differently: Take 1 capsule (30 mg total) by mouth every morning fluticasone propionate (FLONASE) 50 mcg/actuation nasal spray Past Month -- -- Levon Kee MD heparin 100 unit/mL solution Past Week -- -- Levon Kee MD [facility] cabozantinib/placebo (/[id number]) 20 mg tablet 11/20/2022 01/29/22 -- Eren Cr Jr., MD levothyroxine (SYNTHROID) 88 mcg tablet 11/21/2022 10/12/22 -- Eren Cr MD Take 1 tablet (88 mcg total) by mouth sales operations consultant before breakfast Patient taking differently: Take 1 tablet (88 mcg total) by mouth sales operations consultant before breakfast lidocaine-prilocaine (lidocaine-prilocaine) cream 11/21/2022 09/19/21 -- Eren Cr Jr., MD Apply [...] absorbant dressing loperamide HCl (IMODIUM A-D ORAL) Past Week 11/23/20 -- Levon Kee MD LORazepam (ATIVAN) [...] if needed 15 minutes prior to MRI montelukast (SINGULAIR) 10 mg tablet Past Month -- -- Levon Kee MD octreotide (SandoSTATIN) 100 mcg/mL injection Past Week -- -- Levon Kee MD olmesartan-hydrochlorothiazide (BENICAR HCT) 20-12.5 mg per tablet 11/21/2022 05/14/19 -- Levon Kee MD ondansetron (ZOFRAN) 8 mg tablet Past Month 08/17/22 -- Eren Cr Jr., MD Take 1 tablet (8 mg total) by mouth every 8 (eight) hours as needed for nausea or vomiting ondansetron ODT (ZOFRAN-ODT) 8 mg disintegrating tablet Past Month 10/18/22 -- Eren Cr MD Take 1 tablet (8 mg total) by mouth every 8 (eight) hours as needed for nausea or vomiting ostomy supplies [facility] [place] -- 09/21/19 -- Greyson Reeves MD Patient has colostomy and needs Cavilon 3M skin barrier film to manage. prochlorperazine (COMPAZINE) 10 mg tablet () -- 03/23/22 11/21/22 Eren Cr Jr., MD Take 1 tablet (10 mg total) by mouth every 6 (six) hours as needed for nausea Patient taking differently: Take 1 tablet (10 mg total) by mouth every 6 (six) hours as needed for nausea or vomiting simvastatin (ZOCOR) 20 mg tablet 11/20/2022 -- -- Provider, MD Levon sodium chloride 0.9 % solution Past Week 09/14/22 -- Eren Cr Jr., MD triamcinolone (KENALOG) 0.1 % ointment -- 05/06/20 -- Po Newberry MD PhD Apply to itchy rash on hands twice daily until improved Patient taking differently: Apply 1 Application topically daily as needed for irritation or rash Apply to itchy rash on hands twice daily until improved Ongoing Comment Sherlyn Orozco RN 11/14/2022 10:23 PM 09/13/2022 -- No severe interactions noted at start of care. -- Mj Lima RN 11/14/2022- No severe interactions noted Nayla Kaiser RN No current facility-administered medications for this encounter. Current Outpatient Medications: ??? 0.9 % sodium chloride ([facility] sodium chloride 0.9%) injection ??? amLODIPine (NORVASC) 5 mg tablet ??? ascorbic acid, vitamin C, 500 mg capsule ??? cholecalciferol (VITAMIN D-3) 1,000 unit ??? clotrimazole-betamethasone (LOTRISONE) cream ??? coenzyme [id number] E 100-5 mg-unit capsule ??? denosumab (Xgeva) 120 mg/1.7 mL (70 mg/mL) injection ??? diphenoxylate-atropine (LOMOTIL) 2.5-0.025 mg per tablet ??? DULoxetine DR (CYMBALTA) 30 mg capsule ??? fluticasone propionate (FLONASE) 50 mcg/actuation nasal spray ??? heparin 100 unit/mL solution ??? [facility] cabozantinib/placebo (/[id number]) 20 mg tablet ??? levothyroxine (SYNTHROID) 88 mcg tablet ??? lidocaine-prilocaine (lidocaine-prilocaine) cream ??? loperamide HCl (IMODIUM A-D ORAL) ??? LORazepam (ATIVAN) 0.5 mg tablet ??? montelukast (SINGULAIR) 10 mg tablet ??? octreotide (SandoSTATIN) 100 mcg/mL injection ??? olmesartan-hydrochlorothiazide (BENICAR HCT) 20-12.5 mg per tablet ??? ondansetron (ZOFRAN) 8 mg tablet ??? ondansetron ODT (ZOFRAN-ODT) 8 mg disintegrating tablet ??? ostomy supplies misc ??? prochlorperazine (COMPAZINE) 10 mg tablet ??? simvastatin (ZOCOR) 20 mg tablet ??? sodium chloride 0.9 % solution ??? triamcinolone (KENALOG) 0.1 % ointment Facility-Administered Medications Ordered in Other Encounters: ??? L-arginine 1.25%/L-lysine 1.25% infusion 1,000 mL, 1,000 mL, intravenous, Continuous Social History Tobacco Use Smoking Status Never Smokeless Tobacco Never Vaping Use ??? Vaping Use: Never used Alcohol Use: Not At Risk (11/21/2022) AUDIT-C ??? Frequency of Alcohol Consumption: Monthly or less ??? Average Number of Drinks: 1 or 2 ??? Frequency of Binge Drinking: Never Substance and Sexual Activity Drug Use No Family History Problem Relation Age of Onset ??? Other (old age) Mother ??? Hearing loss Mother ??? Hypertension Mother ??? Heart disease Mother ??? Suicidality Father Family history of suicide - (Added by TW Conv) ??? Breast cancer Sister 61 Adenocarcinoma of breast - (Added by TW Conv) ??? Cancer Sister ??? Diabetes Sister ??? Hypertension Sister ??? Hypertension Brother ??? Melanoma Daughter 30 ??? Anesthesia problems Grandchild questionable malignant hyperthermia, no work up at this time There were no vitals filed for this visit. Relevant diagnostics: ECG(s): 11/20/20203877-KLR-[id number], incomplete LBBB, LVH, HR 64 bpm Echocardiogram(s): N/A Stress test(s): N/A Cardiac catheterization(s): N/A PFT(s): N/A Vascular studies: N/A Other: 09/05/2022- CT chest abdomen pelvis- Stable hepatic lesions and peritoneal implants compatible with the patient's known neuroendocrine malignancy. 2. No new findings of metastatic disease. PT: No results found for requested labs within last 30 days. INR: No results found for requested labs within last 30 days. APTT: No results found for requested labs within last 30 days. Hgb A1C: No results found for requested labs within last 30 days. CBC RBC: 11/15/2022: 3.27 M/cumm (L) RDW: No results found for requested labs within last 30 days. MCHC: 11/15/2022: 33.0 g/dL MCH: 11/15/2022: 32.7 pg MCV: 11/15/2022: 99.1 fL (H) Hct: 11/15/2022: 32.4 % (L) Hgb: 11/15/2022: 10.7 g/dL (L) WBC: 11/15/2022: 3.5 K/cumm (L) MPV: 11/15/2022: 10.1 fL Platelets: 11/15/2022: 98 K/cumm (L) RDW CV: 11/15/2022: 13.7 % RDW Sd: 11/15/2022: 49.5 fL (H) BMP Glucose: 11/15/2022: 110 mg/dL Calcium: 11/15/2022: 10.1 mg/dL Sodium: 11/15/2022: 136 mmol/L Potassium: 11/15/2022: 3.7 mmol/L CO2: 11/15/2022: 26 mmol/L Chloride: 11/15/2022: 104 mmol/L BUN: 11/15/2022: 19 mg/dL Creatinine: 11/15/2022: 1.20 mg/dL (H) Cheri index score: 100 documented in this encounter Plan of Treatment Not on file documented as of this encounter Visit Diagnoses Not on filedocumented in this encounter Care Teams Buyer Broker Relationship Specialty Start Date End Date Julio César Briseno MD PCP - General 10/01/16 Eren Cr MD Referring Physician Medical Oncology 11/25/18 Yohana Bowen MD Radiation Oncologist Radiation Oncology 11/25/18 documented as of this encounter
--- OUTSIDE RECORDS SUMMARY | 2024-06-25 22:15 | XMS_ITS | Encounter Summary ---
Author Organization [facility] Home Care Servic es Address [address] [place] [address] Phone Care Team Providers Care Investigation Clerk Name Role Phone Julio César Briseno MD Primary Care Provider [phone] Eren Cr MD Unavailable [phone] Yohana Bowen MD Unavailable Reason for Visit * Reason Comments Fatigue Encounter Details Date Type Department Care Team (Late st Contact Info) Description 10/10/2022 1:30 PM CDT Home Care Visit [facility] [address] [place] [id number] Sherlyn Orozco RN SN HOME VISIT Social History Tobacco Use Types Packs/Day Years Used Date Smoking Tobacco: Never Smokeless Tobacco: Never Alcohol Use Standard Drinks/Week Comments Yes 1 (1 standard drink = 0.6 oz pur e alcohol) AUDIT-C Answer Date Recorded Q1: How often do you have a drink containing alc ohol? Monthly or less 09/04/2022 Q2: How many drinks containi ng alcohol do you have on a typical day when you are drinking? 1 or 2 09/04/2022 Q3: How often do you have si x or more drinks on one occasion? 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 No / Unsure 09/12/2022 10:42 AM REGULATORY AND COMPLIANCE TECHNICIAN documented as of this encounter Last Filed Vital Signs Vital Sign Reading Time Taken Comments Blood Pressure 136/84 10/10/2022 1:30 AM CDT Pulse 82 10/10/2022 1:30 AM CDT Temperature 36.2 ??C (97.1 ??F) 10/10/2022 1:30 AM CD T Respiratory Rate 17 10/10/2022 1:30 AM CDT Oxygen Saturation 98% 10/10/2022 1:30 AM CDT Inhaled Oxygen Concentration - - Weight 77.6 kg (171 lb) 10/10/2022 1:30 AM CDT Height - - Body Mass Index 30.29 09/13/2022 10:55 AM REGULATORY AND COMPLIANCE TECHNICIAN documented in this encounter Miscellaneous Notes * Home Health Plan for Next Visit - Sherlyn Orozco RN - 10/10/2022 1:30 PM CDT Reason for today's visit assessment, instruction, port access, vitals Discuss plan of care with pt verb good understanding Discharge planning indef Plan for next visit assessment, instruction, port access, vitals documented in this encounter Plan of Treatment Not on file documented as of this encounter Visit Diagnoses Not on filedocumented in this encounter Administered Medications Inactive Administered Medications - up to 3 most recent administrations Medication Order MAR Action Action Date Dose Rate Site 0.9 % sodium chloride ([facility] sodium chloride 0.9%) injection 10 mL, intravenous, Weekly, First dose on Sat10/10/22 at 1945, Indications: line careIndications:line care Given 10/10/2022 1:40 AM CDT 10 mL sodium chloride 0.9 % solution 1,000 mL, intravenous, Weekly, First dose on Sat10/10/22 at 1945, Patient to infuse 1000mL of Normal Saline via CADD Coreas pump set at 300mL/Hr once weekly. Given 10/10/2022 1:40 AM CDT 1,000 mL documented in this encounter Home Health Visit - Care Plan Visit Details Visit Type -SN Home Visit Discipline -Snf Problems Problem Description Start Date Status Goals Interventions Safety concerns Disciplines: Snf Safety needs related to infusion administration 09/13/2022 Active - 1 problem intervention scheduled/documen omar in this visit Learning/Teachin g Needs - IV Therapy Disciplines: Snf Teaching and learning needs for performing home IV therapy 09/13/2022 Active - 6 problem interventions scheduled/documen omar in this visit Homebound Status Disciplines: Skilled Disciplines Patient's homebound status 09/13/2022 Active 1 goal linked to scheduled/docume nted intervention 1 goal intervention scheduled/documen omar in this visit Monitor patient's vital signs every home health visit Disciplines: SN, PT, OT, FINANCIAL REP, MULTI NEEDLE MACHINE OPERATOR, Skilled Disciplines Monitor patient's vital signs every home health visit. 09/13/2022 Active 1 goal linked to scheduled/docume nted intervention 1 goal intervention scheduled/documen omar in this visit Infection Prevention Disciplines: Skilled Disciplines Infection Prevention 09/13/2022 Active 1 goal linked to scheduled/docume nted intervention 2 goal interventions scheduled/documen omar in this visit Safety concerns Disciplines: Skilled Disciplines Alteration in safety 09/13/2022 Active 1 goal linked to scheduled/docume nted intervention 2 goal interventions scheduled/documen omar in this visit Risk for deficient fluid volume Disciplines: Skilled Disciplines At risk for decreased fluid related to Colostomy 09/13/2022 Active 1 goal linked to scheduled/docume nted intervention 4 goal interventions scheduled/documen omar in this visit Risk of Impaired Skin Integrity Disciplines: Skilled Disciplines peristomal epidermis and or dermis at risk of breakdown related to effluent from Colostomy 09/13/2022 Active 1 goal linked to scheduled/docume nted intervention 2 goal interventions scheduled/documen omar in this visit Goals Goal Associated Problem Outcome Goal Met? Visit Notes Patient receives care at the most appropriate care setting Description: Patient receives care at the most appropriate care setting. Homebound Status No Measure vital signs during every home health visit during episode of care Description: Home probation and parole officer to measure vital signs during every home [...] use of safety precautions. Safety concerns No Maintain Hydration Description: Maintain adequate hydration as evidenced by moist mucous membranes, good skin tugor stable vital signs and appropriate output. Risk for deficient fluid volume No Maintain Skin Integrity Description: Pt/caregiver will demonstrate how to prevent/heal peristomal skin breakdown Risk of Impaired Skin Integrity No Interventions Intervention Associated Problem/Goal Status Variance [...] IV Therapy Completed Port reaccess per rn. rn to perform sterile prep to insertion site with chlorhexidine x 30 seconds. allow to dry. access with 20g 3/4 inch gripper needle. assess for blood return. secure with steri strips and cover with occlusive dressing. changed clave with port reaccess. flush per med list with ns and heparin. covered clave with alcohol swab caps Instruct on IV flush Description: Instruct patient/caregiver in how to perform flushing of IV line according to MD orders or protocol. Problem:Learning/Teac soco Needs - IV Therapy Completed pt verb good understanding of flushing port using push pause method Instruct on IV supplies Description: Instruct patient/caregiver in how to gather supplies, how to restock IV supplies in the home, prepare supplies, administer IV medication and disconnect IV medication, inspecting solution and supplies before infusing, and waste disposal. Problem:Learning/Teac soco Needs - IV Therapy Scheduled Instruct Infection Prevention Description: Instruct patient/caregiver in strategies to prevent infection:s/s of infection, use of incentive spirometer, use of antibiotics, encourage adequate diet and fluid intake, frequent/proper hand-washing techniques, Standard precautions, avoid crowds and persons with known infections and staying current with immunizations. Instruct patient/caregiver on how to recognize signs and symptoms of infection and when to notify HH nurse and/or physician. Problem:Learning/Teac soco Needs - IV Therapy Scheduled IV Administration Description: Skilled Nurse to instruct patient/caregiver on how to properly administer medication saline and heparin. Skilled Nurse to instruct patient/caregiver to administer IV medication as ordered including saline and heparin flushes. Reason for Therapy: IV hydration. Problem:Learning/Teac soco Needs - IV Therapy [...] Problem:Learning/Teac soco Needs - IV Therapy Scheduled Homebound Status Description: Patient is homebound due to medical condition as evidenced by dehydration requiring IV fluid. Problem:Homebound Status Goal:Patient receives care at the most appropriate care setting Scheduled Monitor Vital Signs Description: Monitor blood [...] Goal:Demonstrate use of safety precautions Completed pt verb good understanding of fall prevention including use of non skid shoes and keeping environment free of clutter Assess safety Description: Assess patient safety Problem:Safety concerns Goal:Demonstrate use of safety precautions Scheduled Instruct on dehydration Description: Contact MD and/or CWON if ileostomy patient output is greater than 1200 ml in 24hrs. May consult RD for ideas/education Problem:Risk for deficient fluid volume Goal:Maintain Hydration Scheduled Educate to prevent dehydration Description: Instruct per Information About Your Ostomy Booklet Problem:Risk for deficient fluid volume Goal:Maintain Hydration Scheduled Instruct on intake/output Description: Instruct patient to monitor intake and monitor output per Information About Your Ostomy Booklet Problem:Risk for deficient fluid volume Goal:Maintain Hydration Scheduled Assess for dehydration Description: Assess vital signs, skin turgor capillary refill and mucous membranes Problem:Risk for deficient fluid volume Goal:Maintain Hydration Scheduled Stomal opening for appliance Description: Instruct to measure stoma with each change for first 6-8 weeks ensuring that opening is no larger then 1/8 inch larger then the stoma. Problem:Risk of Impaired Skin Integrity Goal:Maintain Skin Integrity Scheduled Assess of peritomal skin and appliance change Description: Assess peristomal skin with each appliance change. Assess for appropriate removal of appliance, type of appliance and leaking of appliance Problem:Risk of Impaired Skin Integrity Goal:Maintain Skin Integrity Scheduled documented in this encounter Care Teams Investigation Clerk Relationship Specialty Start Date End Date Julio César Briseno MD PCP - General 10/01/16 Eren Cr MD Referring Physician Medical Oncology 11/25/18 Yohana Bowen MD Radiation Oncologist Radiation Oncology 11/25/18 documented as of this encounter
--- OUTSIDE RECORDS SUMMARY | 2024-06-25 22:15 | XMS_ITS | Encounter Summary ---
Author Organization [facility] Address [address] [place] [address] Phone Care Team Providers Care Community Health Consultant Name Role Phone Julio César Briseno MD Primary Care Provider [phone] Eren Cr MD Unavailable [phone] Yohana Bowen MD Unavailable Encounter Details Date Type Department Care Team (Late st Contact Info) Description 09/27/2022 Orders Only [facility] Oncology [address] [facility] [address] Advanced Medicine 7th [place] [address] [place] [address] Eren Cr MD [address] [facility] [address] [place] [address] Neuro-endocrine carcinoma (CMS/HCC) (HCC) (Primary Dx) Social History Tobacco Use [...] on file Legal Sex Female 2:41 PM DOG BARBER Gender Identity Not on file Sexual Orientation Straight 02/19/2021 9: 29 AM CDT Occupation Industry Job Start Date Job End Date retired Not on file Not on file Not on file COVID-19 Exposure Response Date Recorded In the last 10 days, have yo u been in contact with someone who was confirmed or suspected to have Coronavirus/COVID-19? No / Unsure 09/12/2022 10:42 AM DOG BARBER documented as of this encounter Plan of Treatment Not on file documented as of this encounter Results * (ABNORMAL) TSH (10/18/2022 10:46 AM CDT) Thyroid Stimulating Hormone 6.01(H) 0.30 - 4.20 mcIUnit/mL [facility] Blood 10/18/2022 10:4 6 AM CDT 10/18/2022 1:02 PM CDT Eren Cr MD LAB BLOOD ORDERABLES Final Re sult Performing Organization Address [facility] de Phone Number [facility] Department [place] [address] * Magnesium (10/18/2022 10:46 AM CDT) Magnesium 1.5 1.4 - 2.5 mg/dL [facility] Comment:Testing performed by : [facility], [address] [place] [id number] Blood 10/18/2022 10:4 6 AM CDT 10/18/2022 10:47 AM CDT Eren Cr MD LAB BLOOD ORDERABLES Final Re sult Performing Organization Address City/[facility]/ZIP Co de Phone Number [facility] Department [place] [address] documented in this encounter Visit Diagnoses Diagnosis Neuro-endocrine carcinoma (HCC)- Primary Other malignant neoplasm of unspecified site documented in this encounter Orders Appointment Requests Count Last Ordered Date Fi rst Ordered Date ONCBCN CLINIC APPOINTMENT REQUEST 1 023 ONCBCN LAB APPOINTMENT 1 10/18/2022 ONCBCN TAKE HOME STUDY DRUG APPT 1 10/19/19 23 documented in this encounter Care Teams Community Health Consultant Relationship Specialty Start Date End Date Julio César Briseno MD PCP - General 10/01/16 Eren Cr MD Referring Physician Medical Oncology 11/25/18 Yohana Bowen MD Radiation Oncologist Radiation Oncology 11/25/18 documented as of this encounter
--- OUTSIDE RECORDS SUMMARY | 2024-06-25 22:15 | XMS_ITS | Encounter Summary ---
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
--- OUTSIDE RECORDS SUMMARY | 2024-06-25 22:15 | XMS_ITS | Encounter Summary ---
Author Organization [facility] Address [address] [place] [address] Phone Care Team Providers Care Merchandise Flow Team Leader Name Role Phone Julio César Briseno MD Primary Care Provider [phone] Eren Cr MD Unavailable [phone] Yohana Bowen MD Unavailable Reason for Visit * Episode Based Medications (Routine) - Closed Specialty Diagnoses / Procedures Referred By Evelyne bowman Referred To Contact Diagnoses Neuro-endocrine carcinoma (HCC) Procedures study [id number] phase III cabozantinib Eren Cr MD [address] [facility] [address] [place] [address] Phone: tel: fax: [facility] [address] [facility] Advanced Medicine 7th [place] [address] Phone: tel: Referral ID Status Reason Start Date Expiration Date Visits Re quested Visits Authorized [id number] Closed 06/21/2021 06/26/2024 1 99 Encounter Details Date Type Department Care Team (Latest Contact Info) Description 10/18/2022 12:15 PM CDT Research Med Pick-Up/CTRU Underground Drill Operator [facility] Oncology [address] [place] [id number] Neuro-endocrine carcinoma (HCC) (Primary Dx) Social History [...] on file Legal Sex Female 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 Gender Identity Not on file Sexual Orientation [...] Date First Ordered Date [id number] cabozantinib/pl acebo (2018-02-122/[id number]) tablet 20 mg 1 10/18/2022 Nursing Count Last Ordered Date First Orde red Date ONCBCN PROVIDER COMMUNICATION 10 1 10/19/19 ONCBCN STUDY COMMUNICATION 2 1 10/18/2022 ONCBCN TREATMENT PARAMETERS 1 1 10/18/2022 RESEARCH STUDY CLARIFICATION ORDER 1 2022 Appointment Requests Count Last Ordered Date Fi rst Ordered Date ONCBCN TAKE HOME STUDY DRUG APPT 1 10/19/19 documented in this encounter Care Teams Merchandise Flow Team Leader Relationship Specialty Start Date End Date Julio César Briseno MD PCP - General 10/01/16 Eren Cr MD Referring Physician Medical Oncology 11/25/18 Yohana Bowen MD Radiation Oncologist Radiation Oncology 11/25/18 documented as of this encounter
--- OUTSIDE RECORDS SUMMARY | 2024-06-25 22:15 | XMS_ITS | Encounter Summary ---
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 Eren Cr/ Moe Ayers PharmD Maintain IV access Port with 10ml normal saline and 5ml heparin 500units/5ml for patency per established protocol. Infuse 1000ml of Normal Saline solution once weekly via CADD Coreas pump over 3 hours at 300ml/hour Labs: None ordered at this time snf visit 1 to 2 times per week for 9 weeks for patient assessment, teaching, and IV catheter care. 9 PRN visits for additional teaching, line care, labs or other symptom management. documented in this encounter Plan of Treatment Not on file documented as of this encounter Visit Diagnoses Not on filedocumented in this encounter Care Teams Rib Matcher And Fitter Relationship Specialty Start Date End Date Julio César Briseno MD PCP - General 10/01/16 Eren Cr MD Referring Physician Medical Oncology 11/25/18 Yohana Bowen MD Radiation Oncologist Radiation Oncology 11/25/18 documented as of this encounter
--- OUTSIDE RECORDS SUMMARY | 2024-06-25 22:15 | XMS_ITS | Encounter Summary ---
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 Gender Identity Not on file Sexual Orientation Straight 02/19/2021 9: 29 AM CDT Occupation Industry Job Start Date Job End Date retired Not on file Not on file Not on file documented as of this encounter Last Filed Vital Signs Vital Sign Reading Time Taken Comments Blood Pressure 148/82 10/17/2022 11:48 AM CDT Pulse 72 10/17/2022 11:48 AM CDT Temperature 36.2 ??C (97.1 ??F) 10/17/2022 11:48 AM C DT Respiratory Rate 17 10/17/2022 11:48 AM CDT Oxygen Saturation 98% 10/17/2022 11:48 AM CDT Inhaled Oxygen Concentration - - Weight - - Height - - Body Mass Index - - documented in this encounter Miscellaneous Notes * Home Health Plan for Next Visit - Sherlyn Orozco RN - 10/17/2022 11:30 AM CDT Reason for today's visit assessment, [...] Details Visit Type -SN Home Visit Discipline -Custodial Problems Problem Description Start Date Status Goals Interventions Safety concerns Disciplines: Custodial Safety needs related to infusion administration 09/13/2022 Active - 1 problem intervention scheduled/documen omar in this visit Learning/Teachin g Needs - IV Therapy Disciplines: Custodial Teaching and learning needs for performing home IV therapy 09/13/2022 Active - 6 problem interventions scheduled/documen omar in this visit Homebound Status Disciplines: Skilled Disciplines Patient's homebound status 09/13/2022 Active 1 goal linked to scheduled/docume nted intervention 1 goal intervention scheduled/documen omar in this visit Monitor patient's vital signs every home health visit Disciplines: SN, PT, OT, QUILLER RUNNER, CHECKING CLERK, Skilled Disciplines Monitor patient's vital signs every [...] visit during episode of care Description: Home manganese breaker to measure vital signs during every home [...] verb good understanding of infection prevention including use of universal precations and proper handwashing Dressing change Description: Skilled Nurse to instruct [...] IV Therapy Completed Port reaccess per rn. deaccess port needle if present. sterile prep to insertion site with chlorhexidine x 30 seconds. allow to dry. access with 20g 1 inch gripper needle. assess for blood return. secured with steri strips and covered with occlusive dressing. flushed per med list with ns and heparin. cover clave with alcohol swab caps Instruct on IV flush Description: Instruct patient/caregiver in how to perform flushing of IV line according to MD orders or protocol. Problem:Learning/Teac soco Needs - IV Therapy Completed pt verb good understanding of push pause method for flushing port line Instruct on IV supplies Description: Instruct patient/caregiver [...] Scheduled documented in this encounter Care Teams Low Vision Therapist Relationship Specialty Start Date End Date Julio César Briseno MD PCP - General 10/01/16 Eren Cr MD Referring Physician Medical Oncology 11/25/18 Yohana Bowen MD Radiation Oncologist Radiation Oncology 11/25/18 documented as of this encounter
--- OUTSIDE RECORDS SUMMARY | 2024-06-25 22:15 | XMS_ITS | Encounter Summary ---
Author Organization [facility] Address [address] [place] [address] Phone Care Team Providers Care Public Area Supervisor Name Role Phone Julio César Briseno MD Primary Care Provider Eren Cr MD Unavailable Yohana Bowen MD Unavailable Encounter Details Date Type Department Care Team (Late st Contact Info) Description 11/15/2022 Orders Only [facility] Nephrology [address] [facility] Advanced Medicine 5th [place] [address] [place] [address] Alejo Mi MD Count includes the [facility] [address] [place] [address] Social History Tobacco Use Types [...] on file Legal Sex Female 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
--- OUTSIDE RECORDS SUMMARY | 2024-06-25 22:15 | XMS_ITS | Encounter Summary ---
Author Organization [facility] Address [address] [place] [address] Phone Care Team Providers Care Service Delivery Consultant Name Role Phone Julio César Briseno MD Primary Care Provider [phone] Eren Cr MD Unavailable [phone] Yohana Bowen MD Unavailable Reason for Visit * Reason Comments Cough Encounter Details Date Type Department Care Team (Late st Contact Info) Description 09/26/2022 1:00 PM CDT Home Care Visit [facility] [address] [place] [id number] Luciano Howard, RN SN HOME VISIT Social [...] on file Legal Sex Female 2:[address] Gender Identity Not on file Sexual [...] Coronavirus/COVID-19? No / Unsure 09/12/2022 10:[address] WORKER documented as of this encounter Last Filed Vital Signs Vital Sign Reading Time Taken Comments Blood Pressure 120/80 09/26/2022 1:30 PM CDT Pulse 78 09/26/2022 1:30 PM CDT Temperature 36.2 ??C (97.2 ??F) 09/26/2022 1:30 PM CD T Respiratory Rate 16 09/26/2022 1:30 PM CDT Oxygen Saturation 98% 09/26/2022 1:30 PM CDT Inhaled Oxygen Concentration - - Weight - - Height - - Body Mass Index - - documented in this encounter Miscellaneous Notes * Home Health Plan for Next Visit - Luciano Howard RN - 09/26/2022 12:41 PM CDT Reason for today's visit port access , iv fluids admin. pt assessment, pt instruction Discuss plan of care with pt and family Discharge planning indef Plan for next visit weekly port access, pt assessment, pt instruction documented in this encounter Plan of Treatment Not on file documented as of this encounter Visit Diagnoses Not on filedocumented in this encounter Administered Medications Inactive Administered Medications - up to 3 most recent administrations Medication Order MAR Action Action Date Dose Rate Site 0.9 % sodium chloride ([facility] sodium chloride 0.9%) injection 10 mL, intravenous, Weekly, First dose on Sat09/28/22 at 1515, Indications: line careIndications:line care Given 09/26/2022 1:05 PM CDT 10 mL sodium chloride 0.9 % solution 1,000 mL, intravenous, Weekly, First dose on Sat09/28/22 at 1515, Patient to infuse 1000mL of Normal Saline via CADD Coreas pump set at 300mL/Hr once weekly. Given 09/26/2022 1:15 PM CDT 1,000 mL documented in [...] performing home IV therapy 09/13/2022 Active - 7 problem interventions scheduled/documen omar in this visit Homebound Status Disciplines: Skilled Disciplines Patient's homebound status 09/13/2022 Active 1 goal linked to scheduled/docume nted intervention 1 goal intervention scheduled/documen omar in this visit Monitor patient's vital signs every home health visit Disciplines: SN, PT, OT, LOAN REVIEW ANALYST, MUNICIPAL SERVICES MANAGER, Skilled Disciplines Monitor patient's vital signs [...] visit during episode of care Description: Home crisis clinician to measure vital signs during every [...] strips and occlusive dressing. new clave added Instruct on IV flush Description: Instruct patient/caregiver in how to perform flushing of IV line according to MD orders or protocol. Problem:Learning/Teac soco Needs - IV Therapy Completed spouse instructed in flushing port after infusion. verb good understanding IV Discontinuation Description: Instruct patient/caregiver on how to remove peripheral IV after last infusion per MD order or instruct on process of removal of Central Venous Catheter if it is to be removed in the home after infusion therapy is completed by Skilled Nurse. Problem:Learning/Teac soco Needs - IV Therapy Completed reviewed port deaccess with spouse. verb good understanding Instruct on IV supplies [...] care at the most appropriate care setting Completed pt weak. sleepy. cancer. taxing effort to leave home. spouse assist with all adls Monitor Vital Signs Description: Monitor blood pressure, pulse, oxygen saturation, respirations Problem:Monitor patient's vital signs every home health visit Goal:Measure vital signs during every home health visit during episode of care Completed vss Educate Family on Infection Prevention Description: Instructed family on signs and symptoms of infection IE: fever, odor, change in color, increased amount of drainage, purulent drainage, warmth. Problem:Infection Prevention Goal:Verbalize signs of infection Completed reviewed good handwashing, archives technician with all aspects of iv admin, and keeping port site clean and dry and dressing occlusive at all times pt spouse verb good understanding Educate Patient on Infection Prevention Description: Instruct [...] Completed pt safe in home with spouse Assess for dehydration Description: Assess vital signs, skin turgor capillary refill and mucous membranes Problem:Risk for deficient fluid volume Goal:Maintain Hydration Completed pt appears hydrated. bp stable. mucous membranes moist Instruct on dehydration Description: Contact MD and/or [...] Scheduled documented in this encounter Care Teams Service Delivery Consultant Relationship Specialty Start Date End Date Julio César Briseno MD PCP - General 10/01/16 Eren Cr MD Referring Physician Medical Oncology 11/25/18 Yohana Bowen MD Radiation Oncologist Radiation Oncology 11/25/18 documented as of this encounter
--- OUTSIDE RECORDS SUMMARY | 2024-06-25 22:15 | XMS_ITS | Encounter Summary ---
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 No / Unsure 09/12/2022 10:42 AM BUSINESS CONTINUITY ANALYST documented as of this encounter Plan of Treatment Not on file documented as of this encounter Results * (ABNORMAL) Chromogranin A (10/18/2022 10:46 AM CDT) Chromogranin A 1393(H) <93 ng/mL [facility] Comment: Impaired renal or hepatic function or treatment with proton pump inhibitors may result in artifactual elevations of Chromogranin A. ADDITIONAL INFORMATION This test was developed and its performance characteristics determined by [facility] in a manner consistent with CLIA [...] by Mister Mario and performed on the [employer] KrLongaccessor Compact Plus. ? Values obtained with different assay methods or kits may be different and cannot be used interchangeably. ? Test results cannot be interpreted as absolute evidence for the presence or absence of malignant disease. Test Performed by: [address] [address] Head Charger: Immanuel Novak M.D. Ph.D.; [facility]# [id number] Blood 10/18/2022 10:4 6 AM CDT 10/18/2022 11:54 AM CDT Eren Cr MD LAB BLOOD ORDERABLES Final Re sult [facility] Department [place] [address] * (ABNORMAL) Comprehensive metabolic panel (10/18/2022 10:46 AM CDT) Sodium 140 135 - 145 mmol/L [facility] Comment:Testing performed by : [facility], [address] [place] [id number] Potassium, pl 4.0 3.3 - 4.9 mmol/L [facility] Chloride 109 97 - 110 mmol/L [facility] CO2 28 22 - 32 mmol/L [facility] Anion gap 3 2 - 15 mmol/L [facility] BUN 15 8 - 25 mg/dL [facility] Creatinine 1.32(H) 0.60 - 1.10 mg/dL [facility] Glucose 99 70 - 199 mg/dL [facility] Comment: Interpretive Data Fasting glucose [...] 2022. Calcium 10.0 8.5 - 10.3 mg/dL [facility] Bilirubin, total 0.5 0.1 - 1.2 mg/dL [facility] Protein, pl 6.3(L) 6.5 - 8.5 g/dL [facility] Albumin 3.9 3.5 - 5.0 g/dL [facility] Alk phos 55 40 - 130 Units/L [facility] ALT 15 7 - 45 Units/L [facility] AST 26 10 - 45 Units/L [facility] Blood 10/18/2022 10:4 6 AM CDT 10/18/2022 10:47 AM CDT us Eren Cr MD LAB BLOOD ORDERABLES Final Re sult [facility] Department [place] [address] * (ABNORMAL) CBC with auto differential (10/18/2022 10:46 AM CDT) WBC 3.5(L) 3.8 - 9.9 K/cumm [facility] Comment:Testing performed by : [address] [address] Hgb 10.3(L) 11.9 - 15.5 g/dL [facility] Comment:Testing performed by : [address] [address] Hct 31.8(L) 35.6 - 45.5 % [facility] Comment:Testing performed by : [address] [address] Plt 117(L) 150 - 400 K/cumm [facility] Comment:Testing performed by : [address] [address] MPV 10.0 9.1 - 12.3 fL [facility] RBC 3.07(L) 3.90 - 5.20 M/cumm [facility] MCV 103.6(H) 81.3 - 96.4 fL [facility] MCH 33.6(H) 27.1 - 33.3 pg [facility] MCHC 32.4 32.3 - 35.7 g/dL [facility] RDW CV 14.6 11.1 - 14.9 % [facility] RDW SD 54.6(H) 35.7 - 48.1 fL [facility] NRBC abs 0.00 0.00 - 0.01 K/cumm [facility] Blood 10/18/2022 10:4 6 AM CDT 10/18/2022 10:47 AM CDT Eren Cr MD LAB BLOOD ORDERAB[place] [address] * (ABNORMAL) Vitamin D 25 hydroxy (10/18/2022 10:46 AM CDT) Vitamin D 25-OH 23(L) 30 - 80 ng/mL [facility] Blood 10/18/2022 10:4 6 AM CDT 10/18/2022 1:02 PM CDT Eren Cr MD LAB BLOOD ORDERABLES Final Re sult Performing Organization Address [facility] Co de Phone Number [facility] [place] [address] * (ABNORMAL) Phosphorus (10/18/2022 10:46 AM CDT) Pathologist [facility] Phosphorus, pl 2.0(L) 2.3 - 4.5 mg/dL [facility] Comment:Testing performed by : [facility], [address] [place] [address] Blood 10/18/2022 10:4 6 AM CDT 10/18/2022 10:47 AM CDT Eren Cr MD LAB BLOOD ORDERABLES Final Re sult Performing Organization Address City/[facility]/[place] [address] * (ABNORMAL) Lipid panel (10/18/2022 10:46 AM CDT) Pathologist [facility] Cholesterol 154 30 - 199 mg/dL [facility] Comment: Interpretive Data Ages < [...] Data was last revised on 2018. Triglycerides 175(H) <=149 mg/dL [facility] Comment: Interpretive Data Ages < [...] revised on 2018. HDL 62 >=40 mg/dL [facility] Comment: Interpretive Data Ages < [...] was last revised on 2018. LDL, calculated 57 <=129 mg/dL [facility] Comment: Interpretive Data Ages < [...] was last revised on 2018. Non-HDL Cholesterol 92 mg/[facility] Comment: Interpretive Data Ages < [...] last revised on 2018. Chol/HDL ratio 2 [facility] Blood 10/18/2022 10:4 6 AM CDT 10/18/2022 1:02 PM CDT us Eren Cr MD LAB BLOOD ORDERABLES Final Re sult Performing Organization Address City/[facility] Co de Phone Number [facility] [place] [address] * (ABNORMAL) PTH (10/18/2022 10:46 AM CDT) PTH 210(H) 15 - 65 pg/mL [facility] Blood 10/18/2022 10:4 6 AM CDT 10/18/2022 11:50 AM CDT us Eren Cr MD LAB BLOOD ORDERABLES Final Re sult Performing Organization Address [facility] de Phone Number [facility] [place] [address] documented in this encounter Visit Diagnoses Diagnosis Malignant neoplasm metastatic to liver (HCC)- Primary Neuroendocrine carcinoma (HCC) Other malignant neoplasm of unspecified site documented in this encounter Orders Appointment Requests Count Last Ordered Date Fi rst Ordered Date ONCBCN INJECTION APPOINTMENT REQUEST 1 10/06 documented in this encounter Care Teams American Sign Language Teacher Relationship Specialty Start Date End Date Julio César Briseno MD PCP - General 10/01/16 Eren Cr MD Referring Physician Medical Oncology 11/25/18 Yohana Bowen MD Radiation Oncologist Radiation Oncology 11/25/18 documented as of this encounter
--- OUTSIDE RECORDS SUMMARY | 2024-06-25 22:15 | XMS_ITS | Encounter Summary ---
Author Organization [facility] Address [address] [place] [address] Phone Care Team Providers Care Fishing Tackle Repairer Name Role Phone Julio César Briseno MD Primary Care Provider [phone] Eren Cr MD Unavailable [phone] Yohana Bowen MD Unavailable Reason for Visit * Episode Based Medications (Routine) - Closed Specialty Diagnoses / Procedures Referred By Evelyne bowman Referred To Contact Diagnoses Neuro-endocrine carcinoma (HCC) Procedures study [id number] phase III cabozantinib Eren Cr MD [address] [facility] [address] [place] [address] Phone: tel: fax: [facility] at [facility] and [facility] [address] [facility] Advanced Medicine 7th [place] [address] Phone: tel: Referral ID Status Reason Start Date Expiration Date Visits Re quested Visits Authorized [id number] Closed 06/21/2021 06/26/2024 1 99 Encounter Details Date Type Department Care Team (Late st Contact Info) Description 10/18/2022 11:15 AM CDT Office Visit [facility] Oncology [address] [place] [address] Eren Cr MD [address] [facility] [address] [place] [address] 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 Dx); Primary malignant neuroendocrine tumor of ileum (HCC); Neuro-endocrine carcinoma (HCC); Neuroendocrine carcinoma (CMS/HCC) (HCC); Hypothyroidism due to medication Social History Tobacco Use Types Packs/Day Years [...] file Legal Sex Female 2:41 PM RN ACUTE DIALYSIS Gender Identity Not on file Sexual Orientation Straight 02/19/2021 9: 29 AM CDT Occupation Industry Job Start Date Job End Date retired Not on file Not on file Not on file documented as of this encounter Last Filed Vital Signs Vital Sign Reading Time Taken Comments Blood Pressure 124/69 10/18/2022 11:06 AM CDT Pulse 78 10/18/2022 11:06 AM CDT Temperature 36.6 ??C (97.9 ??F) 10/18/2022 11:06 AM C DT Respiratory Rate 16 10/18/2022 11:06 AM CDT Oxygen Saturation 95% 10/18/2022 11:06 AM CDT Inhaled Oxygen Concentration - - Weight 78.5 kg (173 lb) 10/18/2022 11:06 AM CDT shoes off Height - - Body Mass Index 30.65 09/13/2022 10:55 AM RN ACUTE DIALYSIS documented in this encounter Progress Notes * Angel Morales, CECILIA - 10/18/2022 11:15 AM CDT Images from the original note were not included. MEDICAL ONCOLOGY OUTPATIENT ROV NOTE DATE OF VISIT: 10/18/2022 DIAGNOSIS: well differentiated neuroendocrine tumor of ileum [...] (HCC) INTERVAL HISTORY: La Chung is a 71 y.o. 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 She is accompanied by her daughter today. She has been on a clinical trial with 20 mg cabozantinib/placebo daily. This medication has been onhold due to COVID-19 infection and she returns today to considering resuming treatment. Today she reports feeling well with no symptoms or concerns today. She denies any headaches, seizures or other associated symptoms. She reports a stable energy level and appetite. She denies abdominal pain, nausea, vomiting, constipation, fevers, chills, chest pain, shortness of breath, cough, bleeding. REVIEW OF SYSTEMS: A complete review of systems was performed and positive and pertinent negative responses are documented in the history of present illness All other systems were negative. PHYSICAL EXAM: ECOG PS: 1 VITALS: BP 124/69 (BP Location: Left arm) Pulse 78 Temp 36.6 ??C (97.9 ??F) (Oral) Resp 16 Wt 78.5 kg (173 lb) Comment: shoes off SpO2 95% BMI 30.65 kg/m?? GEN: Calm, conversant, well-appearing female in [...] No rashes over exposed skin. NEURO: A&Ox4, frozen meat cutter grossly intact by conversation, moving all extremities well, no focal deficits appreciated PSYCH: Mood euthymic, affect appropriate and congruent, speech clear and goal-directed LABORATORY: I personally reviewed all laboratories and discussed with patient during office visit, selected values included below. Hematology Lab History Some values may be hidden. Unless noted otherwise, only the newest values recorded on each date aredisplayed. Labs - Hematology Latest Ref Range 07/12/22 08/07/22 09/06/22 10/18/22 WBC 3.8 - 9.9 K/cumm 3.3 (A) 3.4 (A) 4.0 3.5 (A) Total Hb, POC 11.9 - 15.5 g/dL 12.1 11.9 11.3 (A) 10.3 (A) Hct 35.6 - 45.5 % 36.0 35.7 33.2 (A) 31.8 (A) Plt 150 - 400 K/cumm 96 (A) 100 (A) 102 (A) 117 (A) Neutrophil abs 1.7 - 6.5 K/cumm 2.0 2.1 2.4 2.1 Lymphocytes, abs 0.8 - 3.3 K/cumm 0.5 (A) 0.7 (A) 0.7 (A) 0.7 (A) (A) Abnormal value Comments are available for some flowsheets but are not being displayed. Chem/LFT Lab History Some values may be hidden. Unless noted otherwise, only the newest values recorded on each date aredisplayed. Labs-Chem/LFT Latest Ref Range 08/07/22 09/05/22 09/06/22 10/18/22 Sodium 135 - 145 mmol/L 141 139 140 Creatinine 0.60 - 1.10 mg/dL 1.46 (A) 1.59 (A) 1.32 (A) Bilirubin, total 0.1 - 1.2 mg/dL 0.6 0.4 0.5 AST 10 - 45 Units/L 34 33 26 ALT 7 - 45 Units/L 24 24 15 CrCl- Actual Body Weight (Cockcroft-Gault) 41.9 68 38.6 47 (A) Abnormal value Comments are available for some flowsheets but are not being displayed. Tumor Marker History Some values may be hidden. Unless noted otherwise, only the newest values recorded on each date aredisplayed. Tumor Markers Latest Ref Range 06/14/22 07/12/22 08/07/22 09/06/22 Chromogranin A <93 ng/mL 1093 (A) 1006 (A) 1094 (A) 1202 (A) (A) Abnormal value Comments are available for some flowsheets but are not being displayed. RADIOGRAPHIC/DIAGNOSTIC REVIEW: CT chest abdomen pelvis with [...] AND PLAN: Ms. La Chung is a 71 y.o. 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 1. Metastatic neuroendocrine tumor with metastases -Her last CT scans were done on 09/05/2022 showing stable disease -She continues on Octreotide LAR 30 mg; due for injection today. - I reviewed her labs today and they are adequate to proceed with cycle 16 day 1 of CABINET study. Will continue on 20 mg dosing of cabozantinib/placebo. She is agreeable to proceed with treatment. - Chromogranin A 1202 (09/06/22). -She will return for follow up in 4 weeks per protocol. - Scans to be per trial protocol in 12/2022 2. Bone metastases: - on Xgeva. Phos 2.0 today; Ca 10.0 and Creatinine 1.32 -last denosumab 09/06/2022 3. Diarrhea - prn immodium and lomotil 4. Hypothyroidism with TSH elevated - continue levothyroxine at 88 mcg daily - Recheck TSH today 6.01, will check Free T4 5. Vitamin D insufficiency/Deficiency: - continue Vitamin D 50 000 international units weekly -recheck vitamin D today shows level of 23. 6. Vision change - ophthalmology evaluation - Consider brain imaging for new/persistent symptoms and/or no cause found by ophthalmology. 7. Renal function - eGFR 43 - No UTI signs/symptoms - Referral to nephrology pending. 8. Right TM perforation - Follow up with ENT All of her and questions were answered to their satisfaction and they verbalized understanding. Disease Status Documentation for mCODE Neoplastic Disease Neuroendocrine carcinoma (CMS/HCC) (HCC) Cancer Disease Assessment for mCODE Date of diagnosis: 10/03/15 Disease status: stable Reason for disease status: physical exam, symptoms, lab results Date of cancer disease status assessment: 10/18/22 Malignant neoplasm metastatic to liver (HCC) Cancer Disease Assessment for mCODE Date of diagnosis: 10/03/15 Disease status: not evaluated Date of cancer disease status assessment: 06/14/22 Neuro-endocrine carcinoma (HCC) Cancer Disease Assessment for mCODE Disease status: stable Reason for disease status: symptoms, physical exam, lab results Date of cancer disease status assessment: 10/18/22 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) H/O actinic keratosis Neuroendocrine tumor Cancer Disease Assessment for mCODE Date of diagnosis: 10/03/15 Disease status: stable Reason for disease status: imaging Date of cancer disease status assessment: 07/12/22 Cancer Treatment Plan Change for ICARE data: No change in treatment plan Cosigned by Eren Cr MD at 10/18/2022 5:13 PM CDT documented in this encounter Plan of Treatment Not on file documented as of this encounter Results * Protein / creatinine ratio, urine, random (11/15/2022 3:45 PM CDT) Protein, ur, quant 7.0 mg/dL [facility] Comment: Interpretive Data No reference range established. Current interpretive data was last revised 2018. Creatinine Ur 107.1 mg/dL [facility] Comment: Interpretive Data No reference range established. Current interpretive data was last revised 2018. Protein/creatinin e ratio 65.4 0.0 - 180.0 mg/g CR [facility] Urine 11/15/2022 3:45 PM CDT 11/15/2022 6:33 PM CDT us Eren Cr MD LAB URINE ORDERABLES Final Re sult [facility] One [facility] Department [place] [address] * (ABNORMAL) Magnesium (11/15/2022 1:30 PM CDT) Magnesium 1.3(L) 1.4 - 2.5 mg/dL [facility] Comment:Testing performed by : [facility], [address] [place] [address] Blood 11/15/2022 1:30 PM CDT 11/15/2022 1:32 PM CDT us Eren Cr MD LAB BLOOD ORDERABLES Final Re sult [facility] One [facility] Department [place] [address] * (ABNORMAL) Chromogranin A (11/15/2022 1:30 PM CDT) Chromogranin A 1170(H) <93 ng/mL [facility] Comment: Impaired renal or hepatic function or treatment with proton pump inhibitors may result in artifactual elevations of Chromogranin A. ADDITIONAL INFORMATION This test was developed and its performance characteristics determined by [facility] in a manner consistent with CLIA requirements. [...] a homogeneous time-resolved immunofluorescent assay manufactured by [employer] and performed on the [employer] on [employer] Compact Plus. ? Values obtained with different assay methods or kits may be different and cannot be used interchangeably. ? Test results cannot be interpreted as absolute evidence for the presence or absence of malignant disease. Test Performed by: [facility] [address] [place] [address] [employer]: Immanuel Novak M.D. Ph.D.; CLIA# [id number] Blood 11/15/2022 1:30 PM CDT 11/15/2022 4:30 PM CDT Eren Cr MD LAB BLOOD ORDERABLES Final Re sult [facility] One [facility] Department [place] [address] * (ABNORMAL) Comprehensive metabolic panel (11/15/2022 1:30 PM CDT) Sodium 136 135 - 145 mmol/L [facility] Comment:Testing performed by : [facility], [address] [place] [address] Potassium, pl 3.7 3.3 - 4.9 mmol/L [facility] Chloride 104 97 - 110 mmol/L [facility] CO2 26 22 - 32 mmol/L [facility] Anion gap 6 2 - 15 mmol/L [facility] BUN 19 8 - 25 mg/dL [facility] Creatinine 1.20(H) 0.60 - 1.10 mg/dL [facility] Glucose 110 70 - 199 mg/dL [facility] Comment: Interpretive Data Fasting glucose >/= [...] 2022. Calcium 10.1 8.5 - 10.3 mg/dL [facility] Bilirubin, total 0.5 0.1 - 1.2 mg/dL [facility] Protein, pl 6.6 6.5 - 8.5 g/dL [facility] Albumin 4.0 3.5 - 5.0 g/dL [facility] Alk phos 65 40 - 130 Units/L [facility] ALT 22 7 - 45 Units/L [facility] AST 33 10 - 45 Units/L [facility] Blood 11/15/2022 1:30 PM CDT 11/15/2022 1:32 PM CDT Eren Cr MD LAB BLOOD ORDERABLES Final Re sult [facility] One [facility] [place] [address] * (ABNORMAL) CBC with auto differential (11/15/2022 1:30 PM CDT) WBC 3.5(L) 3.8 - 9.9 K/cumm [facility] Comment:Testing performed by : [address] [address] Hgb 10.7(L) 11.9 - 15.5 g/dL [facility] Comment:Testing performed by : [address] [address] Hct 32.4(L) 35.6 - 45.5 % [facility] Comment:Testing performed by : [address] [address] Plt 98(L) 150 - 400 K/cumm [facility] Comment:Testing performed by : [address] [address] MPV 10.1 9.1 - 12.3 fL [facility] RBC 3.27(L) 3.90 - 5.20 M/cumm [facility] MCV 99.1(H) 81.3 - 96.4 fL [facility] MCH 32.7 27.1 - 33.3 pg [facility] MCHC 33.0 32.3 - 35.7 g/dL [facility] RDW CV 13.7 11.1 - 14.9 % [facility] RDW SD 49.5(H) 35.7 - 48.1 fL [facility] NRBC abs 0.00 0.00 - 0.01 K/cumm [facility] Blood 11/15/2022 1:30 PM CDT 11/15/2022 1:32 PM CDT Eren Cr MD LAB BLOOD ORDERABLES Final Re sult [facility] Department [place] [address] * Vitamin D 25 hydroxy (11/15/2022 1:30 PM CDT) [facility] Vitamin D 25-OH 32 30 - 80 ng/mL [facility] Blood 11/15/2022 1:30 PM CDT 11/15/2022 3:33 PM CDT Eren Cr MD LAB BLOOD ORDERABLES Final Re sult Performing Organization Address [facility] Co de Phone Number [facility] [place] [address] * Phosphorus (11/15/2022 1:30 PM CDT) [facility] Phosphorus, pl 2.5 2.3 - 4.5 mg/dL [facility] Comment:Testing performed by : [facility], [address] [place] [address] Blood 11/15/2022 1:30 PM CDT 11/15/2022 1:32 PM CDT Eren Cr MD LAB BLOOD ORDERABLES Final Re sult Performing Organization Address City/[facility]/ZIP Co de Phone Number [facility] [place] [address] * (ABNORMAL) Lipid panel (11/15/2022 1:30 PM CDT) [facility] Cholesterol 161 30 - 199 mg/dL [facility] Comment: Interpretive Data Ages < [...] Data was last revised on 2018. Triglycerides 286(H) <=149 mg/dL [facility] Comment: Interpretive Data Ages < [...] revised on 2018. HDL 54 >=40 mg/dL [facility] Comment: Interpretive Data Ages [...] was last revised on 2018. LDL, calculated 50 <=129 mg/dL [facility] Comment: Interpretive Data Ages < [...] revised on 2018. Non-HDL Cholesterol 107 mg/dL [facility] Comment: Interpretive Data Ages < [...] last revised on 2018. Chol/HDL ratio 3 [facility] Blood 11/15/2022 1:30 PM CDT 11/15/2022 3:33 PM CDT Eren Cr MD LAB BLOOD ORDERABLES Final Re sult [facility] One [facility] Department [place] [address] documented in this encounter Visit Diagnoses Diagnosis Malignant neoplasm metastatic to liver (HCC)- Primary Primary malignant neuroendocrine tumor of ileum (HCC) Neuro-endocrine carcinoma (HCC) Other malignant neoplasm of unspecified site Neuroendocrine carcinoma (CMS/HCC) (HCC) Other malignant neoplasm of unspecified site Hypothyroidism due to medication documented in this encounter Orders Appointment Requests Count Last Ordered Date Fi rst Ordered Date ONCBCN CLINIC APPOINTMENT REQUEST 2 023 10/18/2022 ONCBCN INJECTION APPOINTMENT REQUEST 1 11/05 ONCBCN LAB APPOINTMENT 1 11/15/2022 ONCBCN TAKE HOME STUDY DRUG APPT 1 11/16/19 23 documented in this encounter Care Teams Fishing Tackle Repairer Relationship Specialty Start Date End Date Julio César Briseno MD PCP - General 10/01/16 Eren Cr MD Referring Physician Medical Oncology 11/25/18 Yohana Bowen MD Radiation Oncologist Radiation Oncology 11/25/18 documented as of this encounter
--- OUTSIDE RECORDS SUMMARY | 2024-06-25 22:15 | XMS_ITS | Encounter Summary ---
Author Organization [facility] Address [address] [place] [address] Phone Care Team Providers Care Shellfish Dredge Operator Name Role Phone Julio César Briseno MD Primary Care Provider [phone] Eren Cr MD Unavailable [phone] Yohana Bowen MD Unavailable Reason for Visit * Episode Based Medications (Routine) - Closed Specialty Diagnoses / Procedures Referred By Evelyne bowman Referred To Contact Diagnoses Neuro-endocrine carcinoma (HCC) Procedures study [id number] phase III cabozantinib Eren Cr MD [address] [facility] [address] [place] [address] Phone: tel: fax: [facility] at [facility] and [facility] [address] [facility] Advanced Medicine 7th [place] [address] Phone: tel: Referral ID Status Reason Start Date Expiration Date Visits Re quested Visits Authorized [id number] Closed 06/21/2021 06/26/2024 1 99 Encounter Details Date Type Department Care Team (Latest Contact Info) Description 11/15/2022 3:30 PM CDT Research Med Pick-Up/CTRU Communications Director [facility] Oncology [address] [place] [address], [place] [address] Neuro-endocrine carcinoma (HCC) (Primary Dx) Social History [...] on file 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 Gender Identity Not on file Sexual [...] Date First Ordered Date [id number] cabozantinib/pl acebo (/[id number]) tablet 20 mg 1 11/15/2022 Nursing Count Last Ordered Date First Orde red Date ONCBCN STUDY COMMUNICATION 2 1 11/15/2022 ONCBCN TREATMENT PARAMETERS 1 1 11/15/2022 RESEARCH STUDY CLARIFICATION ORDER 1 2022 Appointment Requests Count Last Ordered Date Fi rst Ordered Date ONCBCN TAKE HOME STUDY DRUG APPT 1 11/16/19 23 documented in this encounter Care Teams Shellfish Dredge Operator Relationship Specialty Start Date End Date Julio César Briseno MD PCP - General 10/01/16 Eren Cr MD Referring Physician Medical Oncology 11/25/18 Yohana Bowen MD Radiation Oncologist Radiation Oncology 11/25/18 documented as of this encounter
--- OUTSIDE RECORDS SUMMARY | 2024-06-25 22:15 | XMS_ITS | Encounter Summary ---
Author Organization [facility] Address [address] [place] [address] Phone Care Team Providers Care Skip Loader Name Role Phone Julio César Briseno MD Primary Care Provider [phone] Eren Cr MD Unavailable [phone] Yohana Bowen MD Unavailable Reason for Visit * Reason Comments Injections * Episode Based Medications (Routine) - Authorized Specialty Diagnoses / Procedures Referred By Contellen t Referred To Contact Oncology Diagnoses 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) Procedures RI OCTREOTIDE INJECTION, DEPOT Octreotide 28 Day Cycles - Carcinoid Eren Cr MD [address] [place] [address] Phone: tel: fax: [address] [address] Phone: tel: fax: Referral ID Status Reason Start Date Expiration Date V isits Requested Visits Authorized [id number] Authorized 11/28/2017 02/05/2025 1 150 Encounter Details Date Type Department Care Team (Late st Contact Info) Description 10/18/2022 12:[address] 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 female who presents for the following injection: Octreotide. Additional Notes: Patient saw MD today. MD holding Red 5 Studiosva for phos 2.0. Patient received her study pills and is aware how to take them. BP: 124/69 Temp: 36.6 ??C (97.9 ??F) Temp src: Oral Pulse: 78 Resp: 16 SpO2: 95 % Weight: 78.5 kg (173 lb) (shoes off) Patient: met treatment parameters La Chung tolerated injection well Additional Notes: Given in right dorsogluteal IM. Discharge Plan Discharge instructions given to patient. [...] mg 30 mg, intramuscular, Once, On Lydia 10/18/22 at 1245, For 1 dose, Refrigerate. For IM intragluteal administration only- alternate gluteal sites. 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),Neuroendocrine carcinoma (HCC) Given 10/18/2022 12:39 PM CDT 30 mg Right Dorsogluteal/Butt ock documented in this encounter Orders Medications Ordered That Brett ht Not Have Been Administered Count Last Ordered Date First Ordered Date octreotide LAR (SandoSTATIN LAR) extended release intramuscular injection 30 mg 1 10/18/2022 Nursing Count Last Ordered Date First Orde red Date ONCBCN NURSING COMMUNICATION [id number] 1 10/18 Appointment Requests Count Last Ordered Date Fi rst Ordered Date ONCBCN INJECTION APPOINTMENT REQUEST 1 10/06 documented in this encounter Care Teams Skip Loader Relationship Specialty Start Date End Date Julio César Briseno MD PCP - General 10/01/16 Eren Cr MD Referring Physician Medical Oncology 11/25/18 Yohana Bowen MD Radiation Oncologist Radiation Oncology 11/25/18 documented as of this encounter
--- OUTSIDE RECORDS SUMMARY | 2024-06-25 22:15 | XMS_ITS | Encounter Summary ---
Author Organization [facility] Address [address] [place] [address] Phone Care Team Providers Care Instructional Designer Name Role Phone Julio César Briseno MD Primary Care Provider [phone] Eren Cr MD Unavailable Yohana Bowen MD Unavailable Reason for Visit * Reason Comments Weakness - Generalized Encounter Details Date Type Department Care Team (Late st Contact Info) Description 10/24/2022 3:15 PM CDT Home Care Visit 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 Gender Identity Not on file Sexual Orientation Straight 02/19/2021 9: 29 AM CDT Occupation Industry Job Start Date Job End Date retired Not on file Not on file Not on file documented as of this encounter Last Filed Vital Signs Vital Sign Reading Time Taken Comments Blood Pressure 150/90 10/24/2022 10:40 AM CDT Pulse 94 10/24/2022 10:40 AM CDT Temperature 36 ??C (96.8 ??F) 10/24/2022 10:40 AM CDT Respiratory Rate 17 10/24/2022 10:40 AM CDT Oxygen Saturation 97% 10/24/2022 10:40 AM CDT Inhaled Oxygen Concentration - - Weight 77.6 kg (171 lb) 10/24/2022 10:40 AM CDT Height - - Body Mass Index 30.29 09/13/2022 10:55 AM MASONRY TEACHER documented in this encounter Miscellaneous Notes * Home Health Plan for Next Visit - Sherlyn Orozco RN - 10/24/2022 10:37 AM CDT Reason for today's visit assessment, instruction, port access Discuss plan of care with pt verb good understanding Discharge planning indef Plan for next visit weekly assessment,instruction, port access documented in this encounter Plan of Treatment Not on file documented as of this encounter Visit Diagnoses Not on filedocumented in this encounter Administered Medications Inactive Administered Medications - up to 3 most recent administrations Medication Order MAR Action Action Date Dose Rate Site 0.9 % sodium chloride ([facility] sodium chloride 0.9%) injection 10 mL, intravenous, Weekly, First dose on Sat10/24/22 at 1500, Indications: line careIndications:line care Given 10/24/2022 10:40 AM CDT 10 mL sodium chloride 0.9 % solution 1,000 mL, intravenous, Weekly, First dose on Sat10/24/22 at 1500, Patient to infuse 1000mL of Normal Saline via CADD Coreas pump set at 300mL/Hr once weekly. Given 10/24/2022 10:40 AM CDT 1,000 mL documented in this encounter Home Health Visit - Care Plan Visit Details Visit Type -SN Home Visit Discipline -Long Term Problems Problem Description Start Date Status Goals Interventions Safety concerns Disciplines: Long Term Safety needs related to infusion administration 09/13/2022 [...] home health visit Disciplines: SN, PT, OT, CYBER SECURITY MANAGER, ASSEMBLING FABRICATOR, Skilled Disciplines Monitor patient's vital signs every [...] visit during episode of care Description: Home network support analyst to measure vital signs during every home [...] Therapy Completed Port reaccess per rn. rn performed sterile prep to insertion site with chlorhexidine x 30 seconds. allow to dry. access with 20g 3/4 inch gripper needle. assess for blood return. secure with steri strips and cover with occlusive dressing. clave placed. flushed per med list with ns and heparin. clave covered with alcohol swab cap Instruct on IV flush Description: Instruct patient/caregiver in how to perform flushing of IV line according to MD orders or protocol. Problem:Learning/Teac soco Needs - IV Therapy Completed pt verb good understanding of using push-pause method for port flushing Instruct on IV supplies Description: Instruct patient/caregiver [...] Scheduled documented in this encounter Care Teams Instructional Designer Relationship Specialty Start Date End Date Julio César Briseno MD PCP - General 10/01/16 Eren Cr MD Referring Physician Medical Oncology 11/25/18 Yohana Bowen MD Radiation Oncologist Radiation Oncology 11/25/18 documented as of this encounter
--- OUTSIDE RECORDS SUMMARY | 2024-06-25 22:15 | XMS_ITS | Encounter Summary ---
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) Procedures CT chest abdomen pelvis with contrast Eren Cr MD [address] [place] [address] Phone: tel: fax: [address] [address] Referral ID Status Reason Start Date Expiration Date Visits Re quested Visits Authorized [id number] Closed 11/15/2022 12/15/2023 1 1 Reason for Visit * Episode Based Medications (Routine) - Closed Specialty Diagnoses / Procedures Referred By Contac t Referred To Contact Diagnoses Neuro-endocrine carcinoma (HCC) Procedures study [id number] phase III cabozantinib Eren Cr MD [address] [facility] [address] [place] [address] Phone: tel: fax: [facility] [address] [facility] Advanced Medicine 7th [place] [address] Phone: tel: Referral ID Status Reason Start Date Expiration Date Visits Re quested Visits Authorized [id number] Closed 06/21/2021 06/26/2024 1 99 Encounter Details Date Type Department Care Team (Late st Contact Info) Description 11/15/2022 2:00 PM CDT Office Visit [facility] Oncology [address] [facility] [place] [address] Eren Cr MD [address] [facility] [address] [place] [address] Neuro-endocrine carcinoma (HCC) (Primary Dx); Neuroendocrine carcinoma [...] on file 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 MEDICAL ONCOLOGY OUTPATIENT ROV NOTE DATE OF VISIT: 11/15/2022 DIAGNOSIS: well differentiated neuroendocrine tumor of ileum [...] trial with 20 mg cabozantinib/placebo daily. She met with nephrology on 11/13/22 and they adjusted her BP medication, recommended Vitamin D and set a follow up in 6 months. Today she reports feeling well with no [...] PHYSICAL EXAM: ECOG PS: 1 VITALS: BP 147/68 (BP Location: Left arm) Pulse 85 Temp 36.3 ??C (97.4 ??F) (Temporal) Resp 16 Wt 78 kg (172 lb) SpO2 96% BMI 30.47 kg/m?? GEN: Calm, conversant, well-appearing female in [...] No rashes over exposed skin. NEURO: A&Ox4, eviction specialist grossly intact by conversation, moving all extremities [...] aredisplayed. Labs - Hematology Latest Ref Range 08/07/22 09/06/22 10/18/22 11/15/22 WBC 3.8 - 9.9 K/cumm 3.4 (A) 4.0 3.5 (A) 3.5 (A) Total Hb, POC 11.9 - 15.5 g/dL 11.9 11.3 (A) 10.3 (A) 10.7 (A) Hct 35.6 - 45.5 % 35.7 33.2 (A) 31.8 (A) 32.4 (A) Plt 150 - 400 K/cumm 100 (A) 102 (A) 117 (A) 98 (A) Neutrophil abs 1.7 - 6.5 K/cumm 2.1 2.4 2.1 2.1 Lymphocytes, abs 0.8 - 3.3 K/cumm 0.7 (A) 0.7 (A) 0.7 (A) 0.5 (A) (A) Abnormal value Comments are available for some flowsheets but are not being displayed. Chem/LFT Lab History Some values may be hidden. Unless noted otherwise, only the newest values recorded on each date aredisplayed. Labs-Chem/LFT Latest Ref Range 09/05/22 09/06/22 10/18/22 11/15/22 Sodium 135 - 145 mmol/L 139 140 136 Creatinine 0.60 - 1.10 mg/dL 1.59 (A) 1.32 (A) 1.20 (A) Bilirubin, total 0.1 - 1.2 mg/dL 0.4 0.5 0.5 AST 10 - 45 Units/L 33 26 33 ALT 7 - 45 Units/L 24 15 22 CrCl- Actual Body Weight (Cockcroft-Gault) 68 38.6 47 50.7 (A) Abnormal value Comments are available for some flowsheets but are not being displayed. Tumor Marker History Some values may be hidden. Unless noted otherwise, only the newest values recorded on each date aredisplayed. Tumor Markers Latest Ref Range 07/12/22 08/07/22 09/06/22 10/18/22 Chromogranin A <93 ng/mL 1006 (A) 1094 (A) 1202 (A) 1393 (A) (A) Abnormal value Comments are available [...] they are adequate to proceed with cycle 17 day 1 of CABINET study. Will continue on 20 mg dosing of cabozantinib/placebo. She is agreeable to proceed with treatment. - Chromogranin A 1393 (10/18/22). - She will return for follow up in 4 weeks per protocol. - Scans to be per trial protocol in 12/2022 2. Bone metastases: - on Xgeva. Phos 2.5 today; Ca 10.1, and Creatinine 1.2 -last denosumab 09/06/2022 3. Diarrhea - prn immodium and lomotil 4. Hypothyroidism with TSH elevated - continue levothyroxine at 88 mcg daily - TSH 10/18/22 6.01, Free T4 1.21. 5. Vitamin D insufficiency/Deficiency: - 2000 international units daily recommended per nephrology -last level 23. 6. Vision change - No longer occurring. 7. Renal function - eGFR 48, creatinine 1.2 - No UTI signs/symptoms - She saw nephrology 11/13 who made changes to HTN medications, Vit D dosing and planned follow up in6 months. 8. Right TM perforation - Follow up with ENT 9. 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) Expected: 12/11/2022, Expires: 11/16/2023 documented as of this encounter Results * Magnesium (12/13/2022 10:07 AM CDT) [facility] Magnesium 1.4 1.4 - 2.5 mg/dL [facility] Comment:Testing performed by : [facility], [address] [place] [address] Blood 12/13/2022 10:0 7 AM CDT 12/13/2022 10:07 AM CDT us Eren Cr MD LAB BLOOD ORDERABLES Final Re sult [facility] Department [place] [address] * (ABNORMAL) Chromogranin A (12/13/2022 10:07 AM CDT) [facility] Chromogranin A 1630(H) <93 ng/mL [facility] Comment: Impaired renal or hepatic function or treatment with proton pump inhibitors may result in artifactual elevations of Chromogranin A. ADDITIONAL INFORMATION This test was developed and its performance characteristics determined by [facility] in a manner consistent with CLIA [...] a homogeneous time-resolved immunofluorescent assay manufactured by [employer] and performed on the [employer] K[employer] Compact Plus. ? Values obtained with different assay methods or kits may be different and cannot be used interchangeably. ? Test results cannot be interpreted as absolute evidence for the presence or absence of malignant disease. Test Performed by: [facility] [address] [place] [address] Vision Care Associate: Immanuel Novak M.D. Ph.D.; IA# [id number] Blood 12/13/2022 10:0 7 AM CDT 12/13/2022 11:37 AM CDT Eren Cr MD LAB BLOOD ORDERABLES Final Re sult [facility] Department [place] [address] * (ABNORMAL) Comprehensive metabolic panel (12/13/2022 10:07 AM CDT) [facility] Sodium 140 135 - 145 mmol/L [facility] Comment:Testing performed by : [facility], [address] [place] [address] Potassium, pl 4.7 3.3 - 4.9 mmol/L [facility] Chloride 109 97 - 110 mmol/L [facility] CO2 26 22 - 32 mmol/L [facility] Anion gap 5 2 - 15 mmol/L [facility] BUN 17 8 - 25 mg/dL [facility] Creatinine 1.43(H) 0.60 - 1.10 mg/dL [facility] Glucose 84 70 - 199 mg/dL [facility] Comment: Interpretive Data Fasting glucose >/= [...] 2022. Calcium 9.6 8.5 - 10.3 mg/dL [facility] Bilirubin, total 0.4 0.1 - 1.2 mg/dL [facility] Protein, pl 6.5 6.5 - 8.5 g/dL [facility] Albumin 3.9 3.5 - 5.0 g/dL [facility] Alk phos 62 40 - 130 Units/L [facility] ALT 20 7 - 45 Units/L [facility] AST 32 10 - 45 Units/L [facility] Blood 12/13/2022 10:0 7 AM CDT 12/13/2022 10:07 AM CDT us Eren Cr MD LAB BLOOD ORDERABLES Final Re sult [facility] Department [place] [address] * (ABNORMAL) CBC with auto differential (12/13/2022 10:07 AM CDT) Pathologist [facility] WBC 2.8(L) 3.8 - 9.9 K/cumm [facility] Comment:Testing performed by : [address] [address] Hgb 10.9(L) 11.9 - 15.5 g/dL [facility] Comment:Testing performed by : [address] [address] Hct 33.0(L) 35.6 - 45.5 % [facility] Comment:Testing performed by : [address] [address] Plt 85(L) 150 - 400 K/cumm [facility] Comment:Testing performed by : [facility], [address] [place] [address] MPV 10.0 9.1 - 12.3 fL [facility] RBC 3.37(L) 3.90 - 5.20 M/cumm [facility] MCV 97.9(H) 81.3 - 96.4 fL [facility] MCH 32.3 27.1 - 33.3 pg [facility] MCHC 33.0 32.3 - 35.7 g/dL [facility] RDW CV 13.5 11.1 - 14.9 % [facility] RDW SD 47.9 35.7 - 48.1 fL [facility] NRBC abs 0.00 0.00 - 0.01 K/cumm [facility] Blood 12/13/2022 10:0 7 AM CDT 12/13/2022 10:07 AM CDT Eren Cr MD LAB BLOOD ORDERABLES Final Re sult Performing Organization Address City/[facility]/ZIP Co de Phone Number [facility] Department [place] [employer] [place] [address] * (ABNORMAL) Vitamin D 25 hydroxy (12/13/2022 10:07 AM CDT) Vitamin D 25-OH 22(L) 30 - 80 ng/mL [facility] Blood 12/13/2022 10:0 7 AM CDT 12/13/2022 11:35 AM CDT Eren Cr MD LAB BLOOD ORDERABLES Final Re sult [facility] [employer] [place] [address] * (ABNORMAL) Phosphorus (12/13/2022 10:07 AM CDT) Phosphorus, pl 1.8(L) 2.3 - 4.5 mg/dL [facility] Comment:Testing performed by : [facility], [address] [facility] [address] Blood 12/13/2022 10:0 7 AM CDT 12/13/2022 10:07 AM CDT us Eren Cr MD LAB BLOOD ORDERABLES Final Re sult [facility] Department [place] [address] * (ABNORMAL) Lipid panel (12/13/2022 10:07 AM CDT) Cholesterol 161 30 - 199 mg/dL [facility] Comment: [...] on 2018. Triglycerides 183(H) <=149 mg/dL [facility] Comment: Interpretive Data Ages < or [...] on 2018. HDL 49 >=40 mg/dL [facility] Comment: Interpretive Data Ages < or [...] on 2018. LDL, calculated 75 <=129 mg/dL [facility] Comment: Interpretive Data Ages < or [...] on 2018. Non-HDL Cholesterol 112 mg/dL [facility] Comment: Interpretive Data Ages < or [...] last revised on 2018. 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
--- OUTSIDE RECORDS SUMMARY | 2024-06-25 22:15 | XMS_ITS | Encounter Summary ---
Author Organization [facility] Address [address] [place] [address] Phone Care Team Providers Care Advanced Manufacturing Engineer Name Role Phone Julio César Briseno MD Primary Care Provider [phone] Eren Cr MD Unavailable [phone] Yohana Bowen MD Unavailable Reason for Visit * Episode Based Medications (Routine) - Closed Specialty Diagnoses / Procedures Referred By Evelyne bowman Referred To Contact Diagnoses Neuro-endocrine carcinoma (HCC) Procedures study [id number] phase III cabozantinib Eren Cr MD [address] [facility] [address] [place] [address] Phone: tel: fax: 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
--- OUTSIDE RECORDS SUMMARY | 2024-06-25 22:15 | XMS_ITS | Encounter Summary ---
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 Gender Identity Not on file Sexual Orientation Straight 02/19/2021 9: 29 AM CDT Occupation Industry Job Start Date Job End Date retired Not on file Not on file Not on file documented as of this encounter Medications at Time of Discharge denosumab (Xgeva) 120 mg/1.7 mL (70 mg/mL) [...] by mouth nightly 0.9 % sodium chloride ([facility] sodium chloride 0.9%) injectionIndication s:line care Infuse 10 mL into a venous catheter once a week On saturday06/20/20 24 amLODIPine (NORVASC) 5 mg tabletIndications:h ypertension Take 0.5 tablets (2.5 mg total) by mouth nightly 07/27/2022 06/11/20 23 ascorbic acid, vitamin C, 500 mg capsuleIndications: supplement Take 1 tablet by mouth thermal intelligence analyst before breakfast 07/04/2016 06/20/20 24 cholecalciferol (VITAMIN D-3) 2,000 unit capsule Take 1 capsule (2,000 Units total) by mouth daily 30 capsule 2 04/25/2019 11/17/19 23 clotrimazole-betame thasone (LOTRISONE) cream Apply 1 Application topically daily as needed (rash) 06/20/20 24 coenzyme Z70-[id number] E 100-5 mg-unit capsuleIndications: supplement Take 1 tablet by mouth thermal intelligence analyst before breakfast 06/20/20 24 diphenoxylate-atrop ine [...] Fluids every -Heparin to flush 06/20/20 24 [facility] cabozantinib/placeb o ([id number]) 20 mg tabletIndications:c ancer study Take 1 tablet (20 mg total) by mouth nightly Take on an empty stomach (no food for 2 hours before and 1 hour after each dose).?? Avoid Jas's Wort, grapefruit products and [place] oranges while on treatment. 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 Take 1 tablet (88 mcg total) by mouth thermal intelligence analyst before breakfast 90 tablet 1 10/12/2022 [...] vomiting 30 tablet 3 10/18/2022 05/24/20 23 oxyCODONE (ROXICODONE) 5 mg immediate release tabletIndications:P ain Take 0.5 tablets (2.5 mg total) by mouth every 6 (six) hours as needed for pain 5 tablet 04/10/2022 11/22/19 23 sodium chloride 0.9 % solutionIndications :hydration [...] Priority Date/Time Associated Diagnosis Comments EGFR STAT 10/18/2022 10:46 AM CDT 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) DIFFERENTIAL AUTO Routine 10/18/2022 10: 46 AM CDT 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) CHROMOGRANIN A Routine 10/18/2022 10:46 AM CDT 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) CBC WITH AUTO DIFFERENTIAL Routine 10/18/2022 10:46 AM CDT 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) VITAMIN D 25 HYDROXY Routine 10/18/2022 10:46 AM CDT 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) TSH Routine 10/18/2022 10:46 AM CDT Neuro-endocrine carcinoma (HCC) T4, FREE Routine 10/18/2022 10:46 AM CDT PHOSPHORUS Routine 10/18/2022 10:46 AM CDT 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) PTH Routine 10/18/2022 10:46 AM CDT 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) MAGNESIUM STAT 10/18/2022 10:46 AM CDT Neuro-endocrine carcinoma (HCC) LIPID PANEL Routine 10/18/2022 10:46 AM CDT 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) COMPREHENSIVE METABOLIC PANEL STAT 10/18/2022 10:46 AM CDT 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 73 m2 [facility] Comment: Interpretive Data Reference [...] interpretive data was last reviewed 2021. Blood 10/18/2022 10:4 6 AM CDT 10/18/2022 10:47 AM CDT Eren Cr MD LAB BLOOD ORDERABLES Final Re sult Performing Organization Address [facility]/ZIP Co de Phone Number [facility] Department [place] [address] * (ABNORMAL) Differential, auto (10/18/2022 10:46 AM CDT) Neutrophil abs 2.1 1.7 - 6.5 K/cumm [facility] Comment:Testing performed by : [facility], [address] [place] [id number] Imm gran abs 0.0 0.0 - 0.1 K/cumm [facility] Lymphocyte abs 0.7(L) 0.8 - 3.3 K/cumm [facility] Monocyte abs 0.6 0.2 - 0.8 K/cumm [facility] Eosinophil abs 0.2 0.0 - 0.5 K/cumm [facility] Basophil abs 0.0 0.0 - 0.1 K/cumm [facility] Neutrophil pct 58.0 % [facility] Comment: Interpretive Data Percent cell count reference ranges are not reported, since discordance with absolute values may lead to misinterpretation of CBC data. Current Interpretive Data was last revised on 2017. Imm gran pct 0.8 % [facility] Comment: Interpretive Data Percent cell count reference ranges are not reported, since discordance with absolute values may lead to misinterpretation of CBC data. Current Interpretive Data was last revised on 2017. Lymphocyte pct 18.9 % [facility] Comment: Interpretive Data Percent cell count reference ranges are not reported, since discordance with absolute values may lead to misinterpretation of CBC data. Current Interpretive Data was last revised on 2017. Monocyte pct 16.9 % [facility] Comment: Interpretive Data Percent cell count reference ranges are not reported, since discordance with absolute values may lead to misinterpretation of CBC data. Current Interpretive Data was last revised on 2017. Eosinophil pct 4.8 % [facility] Comment: Interpretive Data Percent cell count reference ranges are not reported, since discordance with absolute values may lead to misinterpretation of CBC data. Current Interpretive Data was last revised on 2017. Basophil pct 0.6 % [facility] Comment: Interpretive Data Percent cell count reference ranges are not reported, since discordance with absolute values may lead to misinterpretation of CBC data. Current Interpretive Data was last revised on 2017. Blood 10/18/2022 10:4 6 AM CDT 10/18/2022 10:47 AM CDT Eren Cr MD LAB BLOOD ORDERABLES Final Re sult Performing Organization Address [facility] Co de Phone Number [facility] [place] [address] * Magnesium (10/18/2022 10:46 AM CDT) Magnesium 1.5 1.4 - 2.5 mg/dL [facility] Comment:Testing performed by : [facility], [address] [place] [id number] Blood 10/18/2022 10:4 6 AM CDT 10/18/2022 10:47 AM CDT Eren Cr MD LAB BLOOD ORDERABLES Final Re sult Performing Organization Address [facility] Co de Phone Number [facility] [place] [address] * (ABNORMAL) TSH (10/18/2022 10:46 AM CDT) Thyroid Stimulating Hormone 6.01(H) 0.30 - 4.20 mcIUnit/mL [facility] Blood 10/18/2022 10:4 6 AM CDT 10/18/2022 1:02 PM CDT Eren Cr MD LAB BLOOD ORDERABLES Final Re sult Performing Organization Address [facility] [place] [address] * (ABNORMAL) PTH (10/18/2022 10:46 AM CDT) PTH 210(H) 15 - 65 pg/mL [facility] Blood 10/18/2022 10:4 6 AM CDT 10/18/2022 11:50 AM CDT us Eren Cr MD LAB BLOOD ORDERABLES Final Re sult [facility] Department [place] [address] * (ABNORMAL) Lipid panel (10/18/2022 10:46 AM CDT) Cholesterol 154 30 - 199 mg/dL [facility] Comment: [...] revised on 2018. Triglycerides 175(H) <=149 mg/dL [facility] Comment: Interpretive Data [...] on 2018. HDL 62 >=40 mg/dL [facility] Comment: Interpretive Data [...] on 2018. LDL, calculated 57 <=129 mg/dL [facility] Comment: Interpretive Data Ages [...] revised on 2018. Non-HDL Cholesterol 92 mg/dL [facility] Comment: Interpretive Data [...] last revised on 2018. Chol/HDL ratio 2 [facility] Blood 10/18/2022 10:4 6 AM CDT 10/18/2022 1:02 PM CDT Eren Cr MD LAB BLOOD ORDERABLES Final Re sult Performing Organization Address City/[facility] Co de Phone Number [facility] Department [place] [address] * (ABNORMAL) Phosphorus (10/18/2022 10:46 AM CDT) Phosphorus, pl 2.0(L) 2.3 - 4.5 mg/dL [facility] Comment:Testing performed by : [address] [address] Blood 10/18/2022 10:4 6 AM CDT 10/18/2022 10:47 AM CDT us Eren Cr MD LAB BLOOD ORDERABLES Final Re sult [facility] Department [place] [address] * (ABNORMAL) Vitamin D 25 hydroxy (10/18/2022 10:46 AM CDT) Vitamin D 25-OH 23(L) 30 - 80 ng/mL [facility] Blood 10/18/2022 10:4 6 AM CDT 10/18/2022 1:02 PM CDT Eren Cr MD LAB BLOOD ORDERABLES Final Re sult Performing Organization Address City/State/[facility] Co de Phone Number [facility] Department [place] [address] * (ABNORMAL) CBC with auto differential (10/18/2022 10:46 AM CDT) WBC 3.5(L) 3.8 - 9.9 K/cumm [facility] Comment:Testing performed by : [address] [address] Hgb 10.3(L) 11.9 - 15.5 g/dL [facility] Comment:Testing performed by : [address] [address] Hct 31.8(L) 35.6 - 45.5 % [facility] Comment:Testing performed by : [address] [address] Plt 117(L) 150 - 400 K/cumm [facility] Comment:Testing performed by : [address] [address] MPV 10.0 9.1 - 12.3 fL [facility] RBC 3.07(L) 3.90 - 5.20 M/cumm [facility] MCV 103.6(H) 81.3 - 96.4 fL [facility] MCH 33.6(H) 27.1 - 33.3 pg [facility] MCHC 32.4 32.3 - 35.7 g/dL [facility] RDW CV 14.6 11.1 - 14.9 % [facility] RDW SD 54.6(H) 35.7 - 48.1 fL [facility] NRBC abs 0.00 0.00 - 0.01 K/cumm [facility] Blood 10/18/2022 10:4 6 AM CDT 10/18/2022 10:47 AM CDT Eren Cr MD LAB BLOOD ORDERABLES Final Re sult [facility] Department [place] [address] * (ABNORMAL) Comprehensive metabolic panel (10/18/2022 10:46 AM CDT) Sodium 140 135 - 145 mmol/L [facility] Comment:Testing performed by : [facility], [address] [place] [address] Potassium, pl 4.0 3.3 - 4.9 mmol/L [facility] Chloride 109 97 - 110 mmol/L [facility] CO2 28 22 - 32 mmol/L [facility] Anion gap 3 2 - 15 mmol/L [facility] BUN 15 8 - 25 mg/dL [facility] Creatinine 1.32(H) 0.60 - 1.10 mg/dL [facility] Glucose 99 70 - 199 mg/dL [facility] Comment: Interpretive Data Fasting [...] 2022. Calcium 10.0 8.5 - 10.3 mg/dL [facility] Bilirubin, total 0.5 0.1 - 1.2 mg/dL [facility] Protein, pl 6.3(L) 6.5 - 8.5 g/dL [facility] Albumin 3.9 3.5 - 5.0 g/dL [facility] Alk phos 55 40 - 130 Units/L [facility] ALT 15 7 - 45 Units/L [facility] AST 26 10 - 45 Units/L [facility] Blood 10/18/2022 10:4 6 AM CDT 10/18/2022 10:47 AM CDT Eren Cr MD LAB BLOOD ORDERABLES Final Re sult Performing Organization Address City/[facility]/ZIP Co de Phone Number [facility] Department [place] [address] * (ABNORMAL) Chromogranin A (10/18/2022 10:46 AM CDT) Chromogranin A 1393(H) <93 ng/mL [facility] Comment: Impaired renal or hepatic function or treatment with proton pump inhibitors may result in artifactual elevations of Chromogranin A. ADDITIONAL INFORMATION This test was developed and its performance characteristics determined by [facility] in a manner consistent with CLIA requirements. [...] a homogeneous time-resolved immunofluorescent assay manufactured by [employer] and performed on the [employer] Kryptor Compact Plus. ? Values obtained with different assay methods or kits may be different and cannot be used interchangeably. ? Test results cannot be interpreted as absolute evidence for the presence or absence of malignant disease. Test Performed by: [facility] [place] [address] Solar Sales Assessor: Immanuel Novak M.D. 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
--- OUTSIDE RECORDS SUMMARY | 2024-06-25 22:15 | XMS_ITS | Encounter Summary ---
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 No / Unsure 09/12/2022 10:42 AM SCOOTER MECHANIC documented as of this encounter Last Filed Vital Signs Vital Sign Reading Time Taken Comments Blood Pressure 122/72 09/19/2022 1:15 PM CDT Pulse 76 09/19/2022 1:15 PM CDT Temperature 36.6 ??C (97.8 ??F) 09/19/2022 1:15 PM CD T Respiratory Rate 16 09/19/2022 1:15 PM CDT Oxygen Saturation 98% 09/19/2022 1:15 PM CDT Inhaled Oxygen Concentration - - Weight - - Height - - Body Mass Index - - documented in this encounter Miscellaneous Notes * Home Health Visit Narrative - Mj Lima RN - 09/19/2022 1:26 PM CDT Port accessed/IV with CADD pump initiated. Pt and verbalize and demonstrate good understanding of aseptic technique as per [facility] Home Care Infusion protocols. (Alejo) to de-access port after infusion. All vital signs fall within acceptable parameters and the patient is free of distress. Pt and verbalize good understanding of plan of care moving forward. * Home Health Plan for Next Visit - Mj Lima RN - 09/19/2022 1:26 PM CDT Reason for today's visit -- port access/IVF Discuss plan of care with the patient and family Discharge planning -- none at this time Plan for next visit -- in one week for same documented in this encounter Plan of Treatment Not on file documented as of this encounter Visit Diagnoses Not on filedocumented in this encounter Administered Medications Inactive Administered Medications - up to 3 most recent administrations Medication Order MAR Action Action Date Dose Rate Site 0.9 % sodium chloride ([facility] sodium chloride 0.9%) injection 10 mL, intravenous, Weekly, First dose on Sat09/21/22 at 1145, Indications: line careIndications:line care Given 09/21/2022 10:53 AM CDT 10 mL documented in this encounter Home Health Visit - Care Plan Visit Details Visit Type -SN Home Visit Discipline -Fpc Problems Problem Description Start Date Status Goals Interventions Safety concerns Disciplines: Fpc Safety needs related to infusion administration 09/13/2022 Active - 1 problem intervention scheduled/documen omar in this visit Learning/Teachin g Needs - IV Therapy Disciplines: Fpc Teaching and learning needs for performing home IV therapy 09/13/2022 Active - 6 problem interventions scheduled/documen omar in this visit Homebound Status Disciplines: Skilled Disciplines Patient's homebound status 09/13/2022 Active 1 goal linked to scheduled/docume nted intervention 1 goal intervention scheduled/documen omar in this visit Monitor patient's vital signs every home health visit Disciplines: SN, PT, OT, V BLOCK SAW OPERATOR, METEOROLOGY TEACHER, Skilled Disciplines Monitor patient's vital signs every [...] visit during episode of care Description: Home coding specialist to measure vital signs during every [...] infusion service Problem:Safety concerns Completed Pt and demonstrate good understanding of potential IV complications and prevention/management of same. Instruct on IV supplies Description: Instruct patient/caregiver in how to gather supplies, how to restock IV supplies in the home, prepare supplies, administer IV medication and disconnect IV medication, inspecting solution and supplies before infusing, and waste disposal. Problem:Learning/Ramin rong Needs - IV Therapy Completed Pt and [...] of each line upon completion of infusion/flushes. Problem:Learning/Naomic soco Needs - IV Therapy Completed Patient and family verbalize and demonstrate good understanding of IV access care and maintenance to include good handwashing, aseptic technique as per [facility] Home Infusion Policies and Procedures, and troubleshooting/manag ement. Instruct on IV flush Description: Instruct patient/caregiver in how to perform flushing of IV line according to MD orders or protocol. Problem:Learning/Teac soco Needs - IV Therapy Completed Pt verbalizes good understanding of IV flush procedure using aseptic technique as per [facility] Infusion policy. Instruct Infection Prevention Description: Instruct [...] Scheduled documented in this encounter Care Teams Corsage Maker Relationship Specialty Start Date End Date Julio César Briseno MD PCP - General 10/01/16 Eren Cr MD Referring Physician Medical Oncology 11/25/18 Yohana Bowen MD Radiation Oncologist Radiation Oncology 11/25/18 documented as of this encounter
--- OUTSIDE RECORDS SUMMARY | 2024-06-25 22:15 | XMS_ITS | Encounter Summary ---
Author Organization [facility] Address [address] [place] [address] Phone Care Team Providers Care Automation Tester Name Role Phone Julio César Briseno MD Primary Care Provider Eren Cr MD Unavailable [phone] Yohana Bowen MD Unavailable Encounter Details Date Type Department Care Team (Late st Contact Info) Description 09/27/2022 Telephone [facility] Oncology [facility] 7th [place] [address] [place] [address] Karen Martinez, [place] Social History Tobacco Use Types Packs/Day [...] on file 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 No / Unsure 09/12/2022 10:42 AM ANIMAL BIOLOGIST documented as of this encounter Miscellaneous Notes * Telephone Encounter - Karen Martinez RN - 09/27/2022 9:27 AM CDT Advised patient taking tessalon pearls is fine but getting paxlovid is not ok with clinical trial. Patient verbalized understanding. documented in this encounter Plan of Treatment Not on file documented as of this encounter Visit Diagnoses Not on filedocumented in this encounter Care Teams Automation Tester Relationship Specialty Start Date End Date Julio César Briseno MD PCP - General 10/01/16 Eren Cr MD Referring Physician Medical Oncology 11/25/18 Yohana Bowen MD Radiation Oncologist Radiation Oncology 11/25/18 documented as of this encounter
--- OUTSIDE RECORDS SUMMARY | 2024-06-25 22:15 | XMS_ITS | Encounter Summary ---
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 No / Unsure 09/12/2022 10:42 AM TRAINS SERVICE CONDUCTOR documented as of this encounter Plan of Treatment Not on file documented as of this encounter Visit Diagnoses Not on filedocumented in this encounter Historical Medications * This list may reflect changes made after this encounter. sodium chloride 0.9 % solutionIndicati ons:hydration Infuse 1,000 mL into a venous catheter once a week Patient to infuse 1000mL of Normal Saline via CADD Coreas pump set at 300mL/Hr once weekly.- Saturday09/14/2022 4 added in this encounter Care Teams Patrol Supervisor Relationship Specialty Start Date End Date Julio César Briseno MD PCP - General 10/01/16 Eren Cr MD Referring Physician Medical Oncology 11/25/18 Yohana Bowen MD Radiation Oncologist Radiation Oncology 11/25/18 documented as of this encounter
--- OUTSIDE RECORDS SUMMARY | 2024-06-25 22:15 | XMS_ITS | Encounter Summary ---
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) Procedures [place] OCTREOTIDE INJECTION, DEPOT Octreotide 28 Day Cycles - Carcinoid Eren Cr MD [address] [place] [address] Phone: tel: fax: [address] [address] Phone: tel: fax: Referral ID Status Reason Start Date Expiration Date V isits Requested Visits Authorized [id number] Authorized 11/28/2017 02/05/2025 1 150 Encounter Details Date Type Department Care Team (Latest Contact Info) Description 11/15/2022 1:30 PM CDT Clinical Support [facility] Oncology [address] [place] [address] Neuroendocrine carcinoma (CMS/HCC) (HCC); Malignant neoplasm metastatic [...] file Legal 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
--- OUTSIDE RECORDS SUMMARY | 2024-06-25 22:15 | XMS_ITS | Encounter Summary ---
Author Organization [facility] Address [address] [place] [address] Phone Care Team Providers Care Decision Unit Rn Name Role Phone Julio César Briseno MD Primary Care Provider [phone] Eren Cr MD Unavailable [phone] Yohana Bowen MD Unavailable Encounter Details Date Type Department Care Team (Latest Contact Info) Description 10/30/2022 10:15 AM CDT Procedure visit [facility] [address] [place] [address] Mixed conductive and sensorineural hearing [...] on file 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 - 10/30/2022 10:15 AM CDT Procedures Name: La Chung : 1950 DOS: 10/30/2022 Provider: Ramirez Zimmerman Audiogram completed per physician order. See scanned audiogram for results. Medical history was obtained by director medical safety and reviewed. Results were reviewed with the patient by physician today. documented in this encounter Plan of Treatment Not on file documented as of this encounter Procedures Procedure Name Priority Date/Time Associated Diagnosis Comments AUDBASE RESULTS 10/30/2022 9:55 AM CDT documented in this encounter Results * AUDBASE RESULTS (10/30/2022 9:55 AM CDT) Provider Scanning AUDIOLOGY SERVICES ORDERABLES Final Result documented in this encounter Visit Diagnoses Diagnosis Mixed conductive and sensorineural hearing loss of right ear with restricted hearing of left ear- Primary documented in this encounter Care Teams Decision Unit Rn Relationship Specialty Start Date End Date Julio César Briseno MD PCP - General 10/01/16 Eren Cr MD Referring Physician Medical Oncology 11/25/18 Yohana Bowen MD Radiation Oncologist Radiation Oncology 11/25/18 documented as of this encounter
--- OUTSIDE RECORDS SUMMARY | 2024-06-25 22:15 | XMS_ITS | Encounter Summary ---
Author Organization [facility] Address [address] [place] [address] Phone Care Team Providers Care Agency Trainer Name Role Phone Julio César Briseno MD Primary Care Provider [phone] Eren Cr MD Unavailable [phone] Yohana Bowen MD Unavailable Reason for Visit * Reason Comments Weakness - Generalized Encounter Details Date Type Department Care Team (Late st Contact Info) Description 11/07/2022 2:15 PM CDT Home Care Visit [facility] [address] [place] [address] Sherlyn Orozco RN SN OASIS DISCHARGE Social History Tobacco Use Types [...] on file Legal Sex Female 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 SPECIALIST Gender Identity Not on file Sexual Orientation Straight 02/19/2021 9: 29 AM CDT Occupation Industry Job Start Date Job End Date retired Not on file Not on file Not on file documented as of this encounter Last Filed Vital Signs Vital Sign Reading Time Taken Comments Blood Pressure 160/98 11/07/2022 2:11 PM CDT Pulse 80 11/07/2022 2:11 PM CDT Temperature 36.2 ??C (97.1 ??F) 11/07/2022 2:11 PM CD T Respiratory Rate 17 11/07/2022 2:11 PM CDT Oxygen Saturation 99% 11/07/2022 2:11 PM CDT Inhaled Oxygen Concentration - - Weight 77.1 kg (170 lb) 11/07/2022 2:11 PM CDT Height - - Body Mass Index 30.11 09/13/2022 10:55 AM LEGAL SUPPORT SPECIALIST documented in this encounter Miscellaneous Notes * Home Health Plan for Next Visit - Sherlyn Orozco RN - 11/07/2022 1:30 PM CDT Reason for today's visit assessment, instruction, vitals, port access, discharge Discuss plan of care with pt verb good understanding Discharge planning complete Plan for next visit discharged documented in this encounter Plan of Treatment Not on file documented as of this encounter Visit Diagnoses Not on filedocumented in this encounter Administered Medications Inactive Administered Medications - up to 3 most recent administrations Medication Order MAR Action Action Date Dose Rate Site 0.9 % sodium chloride ([facility] sodium chloride 0.9%) injection 10 mL, intravenous, Weekly, First dose on Lydia 11/08/22 at 2245, Indications: line careIndications:line care Given 11/07/2022 1:40 PM CDT 20 mL documented in this encounter Home Health Visit - Care Plan Visit Details Visit Type -SN OASIS Dischar ge Discipline -Longterm Problems Problem Description Start Date Status Goals Interventions Safety concerns Disciplines: Longterm Safety needs related to infusion administration 09/13/2022 Active - 1 problem intervention scheduled/documen omar in this visit Learning/Teachin g Needs - IV Therapy Disciplines: Longterm Teaching and learning needs for performing home IV therapy 09/13/2022 Active - 6 problem interventions scheduled/documen omar in this visit Homebound Status Disciplines: Skilled Disciplines Patient's homebound status 09/13/2022 Active 1 goal linked to scheduled/docume nted intervention 1 goal intervention scheduled/documen omar in this visit Monitor patient's vital signs every home health visit Disciplines: SN, PT, OT, RADIOLOGIC TECHNICIAN, VAN LOADER, Skilled Disciplines Monitor patient's vital signs every [...] visit during episode of care Description: Home seismograph chief to measure vital signs during every home [...] insertion site with chlorhexidine x 30 seconds. allowed to dry. access with 20g 3/4 inch gripper needle. secure with sterii strips and cover with occlusive dressing. changed clave. flush per med list with ns. covered clave with alcohol swab cap Instruct on IV flush Description: Instruct patient/caregiver in how to perform flushing of IV line according to MD orders or protocol. Problem:Learning/Teac soco Needs - IV Therapy Completed pt verb good understanding of using push pause method for flushing port line [...] Scheduled documented in this encounter Care Teams Agency Trainer Relationship Specialty Start Date End Date Julio César Briseno MD PCP - General 10/01/16 Eren Cr MD Referring Physician Medical Oncology 11/25/18 Yohana Bowen MD Radiation Oncologist Radiation Oncology 11/25/18 documented as of this encounter
--- OUTSIDE RECORDS SUMMARY | 2024-06-25 22:15 | XMS_ITS | Encounter Summary ---
Author Organization [facility] Address [address] [place] [address] Phone Care Team Providers Care Insulation Inspector Name Role Phone Julio César Briseno MD Primary Care Provider [phone] Eren Cr MD Unavailable [phone] Yohana Bowen MD Unavailable Encounter Details Date Type Department Care Team (Late st Contact Info) Description 09/27/2022 Orders Only [facility] Oncology [address] [facility] [place] [address] [place] [address] [place] [id number] Karen Martinez, [place] Social History Tobacco Use [...] on file 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 No / Unsure 09/12/2022 10:42 AM BRIDGE TOLL COLLECTOR documented as of this encounter Plan of Treatment Not on file documented as of this encounter Visit Diagnoses Not on filedocumented in this encounter Care Teams Insulation Inspector Relationship Specialty Start Date End Date Julio César Briseno MD PCP - General 10/01/16 Eren Cr MD Referring Physician Medical Oncology 11/25/18 Yohana Bowen MD Radiation Oncologist Radiation Oncology 11/25/18 documented as of this encounter
--- OUTSIDE RECORDS SUMMARY | 2024-06-25 22:15 | XMS_ITS | Encounter Summary ---
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 The patient is under my care, and I have authorized serviceson this plan of care and will periodically review the plan. The patient had a [id number] encounter with Eren Cr MD on 09/06/2022 and the encounter was related to the primary reason for homehealth care. documented in this encounter Plan of Treatment Not on file documented as of this encounter Visit Diagnoses Not on filedocumented in this encounter Care Teams Locomotive Boilermaker Relationship Specialty Start Date End Date Julio César Briseno MD PCP - General 10/01/16 Eren Cr MD Referring Physician Medical Oncology 11/25/18 Yohana Bowen MD Radiation Oncologist Radiation Oncology 11/25/18 documented as of this encounter
--- OUTSIDE RECORDS SUMMARY | 2024-06-25 22:15 | XMS_ITS | Encounter Summary ---
Author Organization [facility] Address [address] [place] [address] Phone Care Team Providers Care Bone Grinder Name Role Phone Julio César Briseno MD Primary Care Provider Eren Cr MD Unavailable [phone] Yohana Bowen MD Unavailable Encounter Details Date Type Department Care Team (Late st Contact Info) Description 09/26/[address] [facility] Oncology [address] [place] [address] Rupali Kohler, [place] Social History Tobacco Use Types Packs/Day [...] file Legal Sex Female 2:41 PM NURSE CASE MANAGEMENT Gender Identity Not on file Sexual Orientation Straight 02/19/2021 9: 29 AM CDT Occupation Industry Job Start Date Job End Date retired Not on file Not on file Not on file COVID-19 Exposure Response Date Recorded In the last 10 days, have gus engel been in contact with someone who was confirmed or suspected to have Coronavirus/COVID-19? No / Unsure 09/12/2022 10:42 AM NURSE CASE MANAGEMENT documented as of this encounter Nursing Notes * Rupali Kohler RN - 09/26/2022 4:29 PM CDT The patient's home health infusion nurse Luciano ([phone]) called today. She stated that La has been coughing, is very tired/sleepy, has a sore throat and has been shivering. Temperature today was 97.7F. She stated she slept all day yesterday. Luciano stated the patient's is also starting to feel poorly. Dr Cr notified and recommends the patient proceed to the Urgent Care for evaluation. The patient should hold Cabozantanib until Dr Cr asks that she resumes. RN communicated this to Luciano. She stated she will complete the IV fluids that patient is currentlyreceiving and the family has agreed to proceed to the Urgent Care. The patient did do a Home COVID test and tested positive. This RN then spoke with the patient's daughter who was also at the home. She verbalized understanding of all and also agreed to all of the above. They thanked RN for the call. Study team notified. documented in this encounter Plan of Treatment Not on file documented as of this encounter Visit Diagnoses Not on filedocumented in this encounter Care Teams Bone Grinder Relationship Specialty Start Date End Date Julio César Briseno MD PCP - General 10/01/16 Eren Cr MD Referring Physician Medical Oncology 11/25/18 Yohana Bowen MD Radiation Oncologist Radiation Oncology 11/25/18 documented as of this encounter
--- OUTSIDE RECORDS SUMMARY | 2024-06-25 22:15 | XMS_ITS | Encounter Summary ---
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 Gender Identity Not on file Sexual Orientation [...] Reading Time Taken Comments Blood Pressure 130/70 11/21/2022 11:26 AM CDT Pulse 67 11/21/2022 11:26 AM CDT Temperature 35.9 ??C (96.7 ??F) 11/21/2022 11:26 AM C DT Respiratory Rate 17 11/21/2022 11:26 AM CDT Oxygen Saturation 98% 11/21/2022 11:26 AM CDT Inhaled Oxygen Concentration - - Weight 77.1 kg (170 lb) 11/21/2022 11:26 AM CDT Height - - Body Mass Index 30.11 11/13/2022 1:26 PM CDT documented in this encounter Miscellaneous Notes * Home Health Plan for Next Visit - Sherlyn Orozco RN - 11/21/2022 11:00 AM CDT Reason for today's visit weekly port access, assessment, instruction, vitals Discuss plan of care with pt verb good understanding Discharge planning indef Plan for next visit weekly port access, assessment, instruction, vitals documented in this encounter Plan of Treatment Not on file documented as of this encounter Visit Diagnoses Not on filedocumented in this encounter Administered Medications Inactive Administered Medications - up to 3 most recent administrations Medication Order MAR Action Action Date Dose Rate Site 0.9 % sodium chloride (INV[facility] sodium chloride 0.9%) injection 10 mL, intravenous, Weekly, First dose on 11/24/22 at 2115, On saturday, Indications: line careIndications:line care Given 11/21/2022 11:30 AM CDT 10 mL sodium chloride 0.9 % solution 1,000 mL, intravenous, Weekly, First dose on 11/24/22 at 2115, Patient to infuse 1000mL of Normal Saline via CADD Coreas pump set at 300mL/Hr once weekly.- Saturday, Indications: hydrationIndications:hydration Given 11/21/2022 11:30 AM CDT 1,000 mL documented in [...] home health visit Disciplines: SN, PT, OT, GENERAL UTILITY MACHINE OPERATOR, DIETITIAN HELPER, Skilled Disciplines Monitor patient's vital signs [...] infection prevention including proper handwashing and use universal precautions IV Administration Description: Skilled Nurse to instruct patient/caregiver on how to properly administer medication saline and heparin. Skilled Nurse to instruct patient/caregiver to administer IV medication as ordered including saline and heparin flushes. Reason for Therapy: Iv hydration. Problem:Learning/Teac soco Needs - IV Therapy Completed pt verb good understanding of manager media per cadd pump Dressing change Description: Skilled Nurse to instruct [...] Scheduled documented in this encounter Care Teams Precision Millwright Relationship Specialty Start Date End Date Julio César Briseno MD PCP - General 10/01/16 Eren Cr MD Referring Physician Medical Oncology 11/25/18 Yohana Bowen MD Radiation Oncologist Radiation Oncology 11/25/18 documented as of this encounter
--- OUTSIDE RECORDS SUMMARY | 2024-06-25 22:15 | XMS_ITS | Encounter Summary ---
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) Procedures CT OCTREOTIDE INJECTION, DEPOT Octreotide 28 Day Cycles - Carcinoid Eren Cr MD [address] [place] [address] Phone: tel: fax: [address] [address] Phone: tel: fax: Referral ID Status Reason Start Date Expiration Date V isits Requested Visits Authorized [id number] Authorized 11/28/2017 02/05/2025 1 150 Encounter Details Date Type Department Care Team (Late st Contact Info) Description 11/15/2022 3:00 PM CDT Infusion [facility] Oncology [address] [place] [address] Neuroendocrine carcinoma (CMS/HCC) (HCC) (Primary Dx); Malignant [...] file 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 female who presents for the following injection: xgeva and Octreotide. Nursing Assessment Nursing Assessment Appetite: Good Diarrhea: Yes (immodium taken as needed) Last BM Date: 11/15/22 Existing Patients: Any falls since your last visit?: No Fatigue: Occassional Mouth Sores: No Nausea/Vomiting: No LOC: (dizzy when bend over) Pain: No Peripheral Neuropathy: No Shortness of Breath?: Yes (on exertion) Skin Condition/Temp: Warm, Dry Swelling: No Additional Notes: States no new issues or concerns. Saw MD today. States no mouth or jaw pain, no recent or upcoming dental work and states they are working on her supplements. BP: 147/68 Temp: 36.3 ??C (97.4 ??F) Temp src: Temporal Pulse: 85 Resp: 16 SpO2: 96 % Height: 160 cm (5' 3 ) Weight: 78 kg (172 lb) Patient: met [...] mg 120 mg, subcutaneous, Once, On Lydia 11/15/22 at 1600, For 1 dose, Calcium level should be greater than 8 mg/dl Administer injection in upper arm, abdomen or upper thigh Refrigerate. 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 For IM intragluteal administration only- alternate gluteal sites. Shake.Indications:Malignan t neoplasm metastatic to liver (HCC),Neuroendocrine carcinoma (HCC) Given 11/15/2022 3:40 PM CDT 30 mg Left Dorsogluteal/Butto ck documented in this encounter Orders Nursing Count Last Ordered Date First Orde red Date ONCBCN NURSING COMMUNICATION [id number] 1 11/15 ONCBCN NURSING COMMUNICATION [id number] 1 0 11/15/2022 PHYSICIAN COMMUNICATION ORDER 1 11/15/2022 Appointment Requests Count Last Ordered Date Fi rst Ordered Date ONCBCN INJECTION APPOINTMENT REQUEST 1 11/05 documented in this encounter Care Teams Records Coordinator Relationship Specialty Start Date End Date Julio César Briseno MD PCP - General 10/01/16 Eren Cr MD Referring Physician Medical Oncology 11/25/18 Yohana Bowen MD Radiation Oncologist Radiation Oncology 11/25/18 documented as of this encounter
--- OUTSIDE RECORDS SUMMARY | 2024-06-25 22:15 | XMS_ITS | Encounter Summary ---
Author Organization [facility] Address [address] [place] [address] Phone Care Team Providers Care Concrete Analyst Name Role Phone Julio César Briseno MD Primary Care Provider Eren Cr MD Unavailable [phone] Yohana Bowen MD Unavailable Encounter Details Date Type Department Care Team (Late st Contact Info) Description 09/14/2022 Orders Only [facility] Oncology [address] [place] [address] Eren Cr MD [address] [place] [address] Malignant neoplasm metastatic to liver [...] on file 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
--- OUTSIDE RECORDS SUMMARY | 2024-06-25 22:15 | XMS_ITS | Encounter Summary ---
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 Gender Identity Not on file Sexual Orientation Straight 02/19/2021 9: 29 AM CDT Occupation Industry Job Start Date Job End Date retired Not on file Not on file Not on file documented as of this encounter Last Filed Vital Signs Vital Sign Reading Time Taken Comments Blood Pressure 142/88 10/31/2022 2:19 PM CDT Pulse 83 10/31/2022 2:19 PM CDT Temperature 36.2 ??C (97.1 ??F) 10/31/2022 2:19 PM CD T Respiratory Rate 17 10/31/2022 2:19 PM CDT Oxygen Saturation 97% 10/31/2022 2:19 PM CDT Inhaled Oxygen Concentration - - Weight 79.4 kg (175 lb) 10/31/2022 2:19 PM CDT Height - - Body Mass Index 31 09/13/2022 10:55 AM LOCKSTITCH TUNNEL ELASTIC OPERATOR documented in this encounter Miscellaneous Notes * Home Health Plan for Next Visit - Sherlyn Orozco RN - 10/31/2022 9:14 PM CDT Reason for today's visit assessment, [...] Dose Rate Site 0.9 % sodium chloride ([facility] sodium chloride 0.9%) injection 10 mL, intravenous, Weekly, First dose on Sat10/31/22 at 2300, Indications: line careIndications:line care Given 10/31/2022 1:40 PM CDT 10 mL sodium chloride 0.9 % solution 1,000 mL, intravenous, Weekly, First dose on Sat10/31/22 at 2300, Patient to infuse 1000mL of Normal Saline via CADD Coreas pump set at 300mL/Hr once weekly. Given 10/31/2022 1:40 PM CDT 1,000 mL documented in this encounter Home Health Visit - Care Plan Visit Details Visit Type -SN Home Visit Discipline -Shelter Problems Problem Description Start Date Status Goals Interventions Safety concerns Disciplines: Shelter Safety needs related to infusion administration 09/13/2022 Active - 1 problem intervention scheduled/documen omar in this visit Learning/Teachin g Needs - IV Therapy Disciplines: Shelter Teaching and learning needs for performing home IV therapy 09/13/2022 Active - 6 problem interventions scheduled/documen omar in this visit Homebound Status Disciplines: Skilled Disciplines Patient's homebound status 09/13/2022 Active 1 goal linked to scheduled/docume nted intervention 1 goal intervention scheduled/documen omar in this visit Monitor patient's vital signs every home health visit Disciplines: SN, PT, OT, SAFETY AND SKILL BASED PAY MANAGER, CARBON FURNACE OPERATOR HELPER, Skilled Disciplines Monitor patient's vital [...] visit during episode of care Description: Home customs and immigration officer to measure vital signs during every [...] to notify HH nurse and/or physician. Problem:Learning/Teac scoo Needs - IV Therapy Completed pt verb [...] - IV Therapy Completed Port reaccess per rn, performed sterile prep to insertion site with chlorhexidine x 30 seconds. allow to dry. access with 20g 3/4 inch gripper needle. assess for blood return. secure with steri strips and covered with occlusive dressing. changed clave, flush per med list with ns and heparin. covered clave with alcohol swab cap Instruct on IV flush Description: Instruct patient/caregiver in how to perform flushing of IV line according to MD orders or protocol. Problem:Learning/Teac soco Needs - IV Therapy Completed pt verb good understanding of push pause method for port line flushing Instruct on IV supplies Description: Instruct [...] Instruct on dehydration Description: Contact MD and/or CASIMIRO if ileostomy patient output is greater than [...] Scheduled documented in this encounter Care Teams Flavorer Relationship Specialty Start Date End Date Julio César Briseno MD PCP - General 10/01/16 Eren Cr MD Referring Physician Medical Oncology 11/25/18 Yohana Bowen MD Radiation Oncologist Radiation Oncology 11/25/18 documented as of this encounter
--- OUTSIDE RECORDS SUMMARY | 2024-06-25 22:15 | XMS_ITS | Encounter Summary ---
Author Organization [facility] Address [address] [place] [address] Phone Care Team Providers Care Dietist Name Role Phone Julio César Briseno MD Primary Care Provider [phone] Eren Cr MD Unavailable [phone] Yohana Bowen MD Unavailable Reason for Visit * Reason Comments Hearing Loss Pt is referred by Dr Clark Baum for right TM perforation Encounter Details Date Type Department Care Team (Late st Contact Info) Description 10/30/2022 10:15 AM CDT Office Visit [facility] Otol[facility] [address], [address] [place] [address] Nasim Rojas MD 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 Baum. Chief Complaint: Chief Complaint Patient presents with Hearing Loss Pt is referred by Dr. Baum for right TM perforation HPI: This is a 71 y.o. female who presents today for evaluation of he right ear. Patient is seen with concerns regarding decreased hearing in her right ear. She feels her right ear has been her worsthearing ear for several years. She is noted increasing fullness on the right side over the past 2 months. She denies any vertigo. She denies any recent otorrhea. Past Medical/Surgical History Past Medical History: Diagnosis Date Arthritis Cancer (CMS/HCC) (HCC) Family history of malignant hyperthermia grandson - questionable Generalized headaches GERD (gastroesophageal reflux disease) HL (hearing loss) 2012 Hypercholesteremia Hypertension Motion sickness Personal history of other diseases of the digestive system History of hemorrhoids - (Added by TW Conv) PONV (postoperative nausea and vomiting) Status post chemotherapy 09/2019 immunotherapy Status post radiation therapy 09/2019 Past Surgical History: Procedure Laterality Date COLON SURGERY 10/03/2015 Right colectomy CONTRAST INJECTION EVALUATION CENTRAL VENOUS ACCESS DEVICE N/A 06/12/2022 CONTRAST INJECTION EVALUATION CENTRAL VENOUS ACCESS DEVICE N/A 09/04/2022 EXAMINATION UNDER ANESTHESIA 05/30/2020 Examination under anesthesia and fulguration of pseudo epithelial hyperplasia EXPLORATORY LAPAROTOMY 04/13/2019 Exploratory laparotomy with creation of divided loop colostomy GALLBLADDER SURGERY Gallbladder Surgery - (Added by TW Conv) IR PICC LINE PLACEMENT > 5 YEARS N/A 12/23/2018 IR PICC LINE PLACEMENT > 5 YEARS N/A 02/17/2019 IR PICC LINE PLACEMENT > 5 YEARS N/A 06/09/2019 IR PICC LINE PLACEMENT > 5 YEARS N/A 08/04/2019 JOINT REPLACEMENT Left 2015 PORT PLACEMENT CHEST >5 YEARS N/A 09/14/2021 [place] TONSILLECTOMY PRIMARY/SECONDARY <AGE 12 Tonsillectomy - (Added by TW Conv) [place] TOTAL ABDOMINAL HYSTERECT W/WO RMVL TUBE OVARY Hysterectomy - (Added by TW Conv) Past Family/Social History Family History Problem Relation Age of Onset Breast cancer Sister 61 Adenocarcinoma of breast - (Added by TW Conv) Suicidality Father Family history of suicide - (Added by TW Conv) Other (old age) Mother Hearing loss Mother Hypertension Mother Melanoma Daughter 30 Cancer Sister Diabetes Sister Hypertension Sister Hypertension Brother Social History Tobacco Use Smoking status: Never Smokeless tobacco: Never Substance and Sexual Activity Drug use: No Sexual activity: Not Currently Partners: Male control/protection: Post-menopausal Alcohol Use: Not At Risk (09/04/2022) AUDIT-C Frequency of Alcohol Consumption: Monthly or less Average Number of Drinks: 1 or 2 Frequency of Binge Drinking: Never Medications/Allergies/Immunizations Current Outpatient Medications Medication Sig Dispense Refill 0.9 % sodium chloride ([facility] sodium chloride 0.9%) injection Infuse 10 mL into a venous catheter once a week amLODIPine (NORVASC) 5 mg tablet TAKE 1 TABLET EVERY DAY BY ORAL ROUTE NEEDED. 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 cholecalciferol (VITAMIN D-3) 2,000 unit capsule Take 1 capsule (2,000 Units total) by mouth daily 30 capsule 2 clotrimazole-betamethasone (LOTRISONE) cream clotrimazole-betamethasone 1 %-0.05 % topical cream APPLY EXTERNALLY TO ABDOMEN TWICE DAILY NEEDED coenzyme [id number] 100-5 mg-unit capsule Take by mouth construction technician before breakfast denosumab (Xgeva) 120 mg/1.7 mL (70 mg/mL) injection Xgeva diphenoxylate-atropine (LOMOTIL) 2.5-0.025 mg per tablet Take 1 tablet by mouth 4 (four) times a day as needed for diarrhea (Patient not taking: Reported on 09/06/2022) [address] (CYMBALTA) 30 mg capsule Take 1 capsule (30 mg total) by mouth daily 30 capsule 2 fluticasone propionate (FLONASE) 50 mcg/actuation nasal spray fluticasone propionate 50 mcg/actuation nasal spray,suspension heparin 100 unit/mL solution Infuse 5 mL (500 Units total) into a venous catheter once a week [facility] cabozantinib/placebo (/[id number]) 20 mg tablet Take 1 tablet (20 mg total) bymouth daily Take on an empty stomach (no food for 2 hours before and 1 hour after each dose). AvoidSt. Mj's Wort, grapefruit products and Oxford oranges while on treatment. placed on hold 09/26/22for covid levothyroxine (SYNTHROID) 88 mcg tablet Take 1 tablet (88 mcg total) by mouth construction technician before breakfast 90 tablet 1 lidocaine-prilocaine (lidocaine-prilocaine) cream Apply topically as needed for pain Apply a generous amount topically to port site 1 hour prior to lab/treatment, do not rub in, and cover with non absorbant dressing 30 g 3 loperamide HCl (IMODIUM A-D ORAL) LORazepam (ATIVAN) 0.5 mg tablet Take 1 tablet 1 hour prior to MRI exam, may repeat dose if needed 15 minutes prior to MRI 2 tablet 0 montelukast (SINGULAIR) 10 mg tablet Take 1 tablet (10 mg total) by mouth as needed octreotide (SandoSTATIN) 100 mcg/mL injection Inject under the skin every 30 (thirty) days olmesartan-hydrochlorothiazide (BENICAR HCT) 20-12.5 mg per tablet Take 0.5 tablets by mouth construction technician before breakfast decrease dosage to 0.5 tablet daily 05/14/[address] Briseno at office visit. ondansetron (ZOFRAN) 8 mg tablet Take 1 [...] barrier film to manage. 20 each 6 oxyCODONE (ROXICODONE) 5 mg immediate release tablet Take 0.5 tablets (2.5 mg total) by mouth every6 (six) hours as needed for pain 5 tablet 0 prochlorperazine (COMPAZINE) 10 mg tablet Take 1 tablet (10 mg total) by mouth every 6 (six) hours as needed for nausea 60 tablet 3 simvastatin (ZOCOR) 20 mg tablet Take 1 tablet (20 mg total) by mouth nightly sodium chloride 0.9 % solution Infuse 1,000 mL into a venous catheter once a week Patient to [id number] of Normal Saline via CADD Coreas pump set at 300mL/Hr once weekly. triamcinolone (KENALOG) 0.1 % ointment Apply to itchy rash on hands twice daily until improved 454 g 1 No current facility-administered medications for this visit. Facility-Administered Medications Ordered in Other Visits Medication Dose Route Frequency Provider Last Rate Last Admin L-arginine 1.25%/L-lysine 1.25% infusion 1,000 mL 1,000 mL intravenous Continuous Meagan Amaya MD Allergies: Morphine, Ezetimibe-simvastatin, and Ramipril, Immunizations: Immunization History Administered Date(s) Administered Influenza, Quadrivalent, Cell Culture-based MDCK, Preservative Free, Antibiotic Free, [id number]/15/2018 Influenza, Quadrivalent, High Dose, Preservative Free, Intrr 03/21/2020 Influenza, Trivalent, High Dose, Split, Preservative Free, Intramuscular 05/29/2016, 04/09/2017, 04/16/2019, 05/04/2019 Influenza, Unspecified 04/16/2014, 03/08/2015, 06/11/2018 Moderna SARS-CoV-2 Vaccination (12+ YRS) 08/25/2020, 09/26/2020, 03/08/2021 Pneumococcal Conjugate PCV 13 05/29/2016, 07/12/2020 Pneumococcal Polysaccharide PPV23 05/26/2015 Tdap 11/20/2020 ZOSTER LIVE 05/26/2015, 05/27/2015 Review of Systems Review of Systems: Pertinent positives in HPI. Intake sheet reviewed covering a full 10-systems review of systems. Physical Exam Vital Signs: There were no vitals taken for this visit. GENERAL: Pleasant female, sitting up in NAD, normal appearance and voice. RESPIRATION: Breathing comfortably, no stridor. CV: No clubbing/cyanosis/edema in hands, RRR. HEAD AND FACE: General Inspection reveals no lesions or masses. HEENT: EARS: Examination of the external ears was normal using visual inspection. The otology microscope was used for clear magnified visualization and three- dimensional imaging of the ear for detection of any observable pathology or pathologic anatomic configuration and charaterization of same. Right External auditory canal: normal Tympanic Membrane: Central perforation 50%; dry with surrounding tympanosclerotic plaque Middle ear: normal Left: External auditory canal: normal Tympanic Membrane: normal Middle ear: normal EYES: EOM Intact, sclera anicteric, no conjunctival injection. NOSE: External inspection of nose reveals no lesions, no masses. Inspection of nasal mucosa, septum, and turbinates is normal to anterior rhinoscopy. ORAL CAVITY/OROPHARYNX: Lips and gums are normal. Oropharynx, including the mucosa of oral cavity, hard and soft palates, tongue, and posterior pharyngeal wall showed normal symmetry without lesion and normal hydration of mucosal surfaces. NECK: Normal symmetry and overall appearance as well as tracheal position; no masses. Thyroid gland shows no tenderness or masses. NEURO: A&Ox3, Cranial nerves 2-12 intact and symmetric. Normal affect. GAIT: Normal. ASSESSMENT/PLAN The pt is seen with a history of chronic otitis media with findings consistent with a longstanding right TM perforation. It was recommended the pt undergo a right tympanoplasty. The procedure along with the associated risks of bleeding, infection, loss of hearing, dizziness and facial paralysis were discussed with the pt, and understanding this consents to the procedure which we will plan to perform at some point in the near future. Nasim Rojas M.D. Credit Intern, Otology and Neurotology Department of Otolaryngology [facility] in [place] [phone] documented in this encounter Plan of Treatment Not on file documented as of this encounter Visit Diagnoses Diagnosis Chronic atticoantral suppurative otitis media, right ear- Primary Conductive hearing loss of right ear with unrestricted hearing of left ear Tympanic membrane perforation, right documented in this encounter Care Teams Dietist Relationship Specialty Start Date End Date Julio César Briseno MD PCP - General 10/01/16 Eren Cr MD Referring Physician Medical Oncology 11/25/18 Yohana Bowen MD Radiation Oncologist Radiation Oncology 11/25/18 documented as of this encounter
--- OUTSIDE RECORDS SUMMARY | 2024-06-25 22:15 | XMS_ITS | Encounter Summary ---
Author Organization [facility] Address [address] [place] [address] Phone Care Team Providers Care Magento Developer Name Role Phone Julio César Briseno MD Primary Care Provider [phone] Eren Lund MD Unavailable [phone] Yohana Bowen MD Unavailable Reason for Visit * Consultation (Routine) - Canceled Specialty Diagnoses / Procedures Referred By Evelyne bowman Referred To Contact Nephrology Diagnoses Stage 3b chronic kidney disease (HCC) Eren Lund MD [address] [facility] [address] [place] [address] Phone: tel: fax: [facility] (All Locations) Referral ID Status Reason Start Date Expiration Date Visits Requested Visits Authorized [id number] Canceled Specialty Services Required 09/06/2022 10/06/2023 1 1 Encounter Details Date Type Department Care Team (Late st Contact Info) Description 11/13/2022 1:30 PM CDT Office Visit [facility] Nephrology [address] [facility] 5th [place] [address] [place] [id number] Alejo Mi MD [address] [facility] [address] [place] [address] 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 Dx); Stage 3b chronic kidney disease (HCC); Hypomagnesemia; Hypophosphatemia Social History Tobacco Use Types Packs/Day [...] on file 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 Gender Identity Not on file Sexual [...] Sign Reading Time Taken Comments Blood Pressure 154/79 11/13/2022 1:26 PM CDT Pulse 98 11/13/2022 1:26 PM CDT Temperature - - Respiratory Rate - - Oxygen Saturation - - Inhaled Oxygen Concentration - - Weight 78 kg (172 lb) 11/13/2022 1:26 PM CDT Height 160 cm (5' 3 ) 11/13/2022 1:26 PM CDT Body Mass Index 30.47 11/13/2022 1:26 PM CDT documented in this encounter Progress Notes * Morales River MD - 11/13/2022 1:30 PM CDT NEPHROLOGY INITIAL OFFICE VISIT NAME: LA CHUNG DATE OF : 1950 DATE OF VISIT:11/13/2022 HISTORY REASON FOR CONSULTATION: Evaluation and management of elevated Cr PHYSICIAN REQUESTING CONSULTATION: Julio César Briseno MD and Eren Lund MD CHIEF COMPLAINT: Elevated Creatinine HISTORY OF [...] could be contributing to her rcent ANNE-MARIE. She denies flank pain, hematuria, frothy urine. Patient denies the use of NSAIDs. Patient denies the use of herbal medications or over the counter supplements. PAST MEDICAL HISTORY: Primary neuroendocrine tumor HTN MEDICATIONS: Current Outpatient Medications on File Prior to Visit Medication Sig 0.9 % sodium chloride ([facility] sodium chloride 0.9%) injection Infuse 10 mL into a venous catheter once a week amLODIPine (NORVASC) 5 mg tablet TAKE 1 TABLET EVERY DAY BY ORAL ROUTE NEEDED. ascorbic acid, vitamin C, 500 mg capsule Take 1 tablet by mouth early childhood special educator before breakfast cholecalciferol (VITAMIN D-3) 2,000 unit capsule Take 1 capsule (2,000 Units total) by mouth daily clotrimazole-betamethasone (LOTRISONE) cream clotrimazole-betamethasone 1 %-0.05 % topical cream APPLY EXTERNALLY TO ABDOMEN TWICE DAILY NEEDED coenzyme [id number] 100-5 mg-unit capsule Take by mouth early childhood special educator before breakfast denosumab (Xgeva) 120 mg/1.7 mL (70 mg/mL) injection Xgeva diphenoxylate-atropine (LOMOTIL) 2.5-0.025 mg per tablet Take 1 tablet by mouth 4 (four) times a day as needed for diarrhea DULoxetine DR (CYMBALTA) 30 mg capsule Take 1 capsule (30 mg total) by mouth daily fluticasone propionate (FLONASE) 50 mcg/actuation nasal spray fluticasone propionate 50 mcg/actuation nasal spray,suspension heparin 100 unit/mL solution Infuse 5 mL (500 Units total) into a venous catheter once a week [facility] cabozantinib/placebo (/[id number]) 20 mg tablet Take 1 tablet (20 mg total) bymouth daily Take on an empty stomach (no food for 2 hours before and 1 hour after each dose). AvoidSt. Mj's Wort, grapefruit products and [place] oranges while on treatment. placed on hold 09/26/22for ascencion levothyroxine (SYNTHROID) 88 mcg tablet Take 1 tablet (88 mcg total) by mouth early childhood special educator before breakfast lidocaine-prilocaine (lidocaine-prilocaine) cream Apply topically as needed for pain Apply a generous amount topically to port site 1 hour prior to lab/treatment, do not rub in, and cover with non absorbant dressing loperamide HCl (IMODIUM A-D ORAL) LORazepam (ATIVAN) 0.5 mg tablet Take 1 tablet 1 hour prior to MRI exam, may repeat dose if needed 15 minutes prior to MRI montelukast (SINGULAIR) 10 mg tablet Take 1 tablet (10 mg total) by mouth as needed octreotide (SandoSTATIN) 100 mcg/mL injection Inject under the skin every 30 (thirty) days olmesartan-hydrochlorothiazide (BENICAR HCT) 20-12.5 mg per tablet Take 0.5 tablets by mouth early childhood special educator before breakfast decrease dosage to 0.5 tablet [...] Cavilon 3M skin barrier film to manage. oxyCODONE (ROXICODONE) 5 mg immediate release tablet Take 0.5 tablets (2.5 mg total) by mouth every6 (six) hours as needed for pain simvastatin (ZOCOR) 20 mg tablet Take 1 tablet (20 mg total) by mouth nightly sodium chloride 0.9 % solution Infuse 1,000 mL into a venous catheter once a week Patient to [id number] of Normal Saline via CADD Coreas pump set at 300mL/Hr once weekly. triamcinolone (KENALOG) 0.1 % ointment Apply to itchy rash on hands twice daily until improved prochlorperazine (COMPAZINE) 10 mg tablet Take 1 tablet (10 mg total) by mouth every 6 (six) hours as needed for nausea Current Facility-Administered Medications on File Prior to Visit Medication L-arginine 1.25%/L-lysine 1.25% infusion 1,000 mL ALLERGIES: Allergies Allergen Reactions Morphine Blisters Ezetimibe-Simvastatin Muscle pain and Unknown Muscle weakness Ramipril Cough SOCIAL HISTORY: The [...] pleasant and in no apparent distress BP 154/79 (BP Location: Right arm, Patient Position: Sitting) Pulse 98 Ht 160 cm (5' 3 ) Wt 78 kg (172 lb) BMI 30.47 kg/m?? HENT: MM pink and moist. Oropharynx clear. EYES: sclera anicteric CVS: S1 S2 normal, no murmurs, rub or gallop. No LE edema. LUNGS: clear to auscultation bilaterally ABD: Soft, non-tender, BS normal. No masses SKIN: No rash VENEER PRODUCTION MACHINE OPERATOR: Alert Ox3. No focal motor deficits PSYCH: Pleasant, cooperative, appropriate affect. MSK: No joint swelling or tenderness LABORATORY DATA Sodium Date Value Ref Range Status 10/18/2022 140 135 - 145 mmol/L Final Comment: Testing performed by: [facility], [address] [id number] 09/06/2022 139 135 - 145 mmol/L Final Comment: Testing performed by: [facility], [address] [place] [id number] 08/07/2022 141 135 - 145 mmol/L Final Comment: Testing performed by: [facility], [address] [place] [id number] Potassium, pl Date Value Ref Range Status 10/18/2022 4.0 3.3 - 4.9 mmol/L Final 09/06/2022 4.4 3.3 - 4.9 mmol/L Final 08/07/2022 4.2 3.3 - 4.9 mmol/L Final CO2 Date Value Ref Range Status 10/18/2022 28 22 - 32 mmol/L Final 09/06/2022 26 22 - 32 mmol/L Final 08/07/2022 28 22 - 32 mmol/L Final BUN Date Value Ref Range Status 10/18/2022 15 8 - 25 mg/dL Final 09/06/2022 21 8 - 25 mg/dL Final 08/07/2022 20 8 - 25 mg/dL Final Creatinine Date Value Ref Range Status 10/18/2022 1.32 (H) 0.60 - 1.10 mg/dL Final 09/06/2022 1.59 (H) 0.60 - 1.10 mg/dL Final Creatinine POC Date Value Ref Range Status 09/05/2022 0.9 0.6 - 1.1 mg/dL Final Albumin Date Value Ref Range Status 10/18/2022 3.9 3.5 - 5.0 g/dL Final 09/06/2022 4.0 3.5 - 5.0 g/dL Final 08/07/2022 4.0 3.5 - 5.0 g/dL Final Calcium Date Value Ref Range Status 10/18/2022 10.0 8.5 - 10.3 mg/dL Final 09/06/2022 10.1 8.5 - 10.3 mg/dL Final 08/07/2022 9.8 8.5 - 10.3 mg/dL Final Phosphorus, pl Date Value Ref Range Status 10/18/2022 2.0 (L) 2.3 - 4.5 mg/dL Final Comment: Testing performed by: [facility], [address] [place] [id number] 09/06/2022 2.5 2.3 - 4.5 mg/dL Final Comment: Testing performed by: [facility], [address] [place] [id number] 08/07/2022 2.0 (L) 2.3 - 4.5 mg/dL Final Comment: Testing performed by: [facility], [address] [place] [id number] PTH Date Value Ref Range Status 10/18/2022 210 (H) 15 - 65 pg/mL Final 04/14/2019 554 (H) 15 - 65 pg/mL Final Vitamin D 25-OH Date Value Ref Range Status 10/18/2022 23 (L) 30 - 80 ng/mL Final 09/06/2022 21 (L) 30 - 80 ng/mL Final 08/07/2022 24 (L) 30 - 80 ng/mL Final Hgb Date Value Ref Range Status 10/18/2022 10.3 (L) 11.9 - 15.5 g/dL Final Comment: Testing performed by: [facility], [address] [place] [id number] 09/06/2022 11.3 (L) 11.9 - 15.5 g/dL Final Comment: Testing performed by: [address] [id number] 08/07/2022 11.9 11.9 - 15.5 g/dL Final Comment: Testing performed by: [address] [id number] Iron Date Value Ref Range Status 11/04/2015 51 35 - 145 mcg/dl Transferrin saturation Date Value Ref Range Status 11/04/2015 14 (L) 20 - 50 % Ferritin Date Value Ref Range Status 11/04/2015 39 15 - 150 ng/ml Protein/creatinine ratio Date Value Ref Range Status 09/06/2022 69.4 0.0 - 180.0 mg/g CR Final 07/12/2022 54.9 0.0 - 180.0 mg/g CR Final 05/17/2022 75.2 0.0 - 180.0 mg/g CR Final DATE [...] any previous visit. Results for orders placed or performed in visit on 05/09/20 Surgical pathology Narrative EPIC results best viewed via link to PDF [facility] [address], [address], [place] [address] [email or web address] FINAL REPORT Patient Information: PATIENT NAME: LA CHUNG SEX: F : 1950 (Age: 69) Specimen Information: COLLECTED: 05/06/2020 RECEIVED: 05/09/2020 REPORTED: 05/10/2020 Submitting Physician Information: Po Newberry M.D. [address], [address] [place] [address], DERMATOPATHOLOGY REPORT RESULTS DIAGNOSIS: A. SKIN, RIGHT POSTERIOR SHOULDER, SHAVE BIOPSY: BENIGN LICHENOID KERATOSIS B. SKIN, CHEST, SHAVE BIOPSY: BENIGN LICHENOID KERATOSIS ajrr/lpd By this signature, I attest that the above diagnosis is based upon my personal examination of the slides(and/or other material indicated in the diagnosis). Bello Melton M.D. Report Electronically Reviewed and Signed Out By Bello Melton M.D. 05/10/2020 12:39:15 CLINICAL INFORMATION A-B. R/O BCC. SPECIMEN DATA MICROSCOPIC DESCRIPTION: A-B. There is hyperkeratosis, irregular epidermal hyperplasia and a lichenoid inflammatory cell infiltrate that obscures the dermo-epidermal junction where there are numerous necrotic keratinocytes. (D23.9) GROSS DESCRIPTION: A. Received in a formalin-containing bottle is a superficial fragment of pale lund and finely scaling, hair-bearing skin measuring 1.3 by 1.1 by 0.1 cm. The surgical margin is inked blue. The specimenis sectioned into 5 pieces and submitted entirely in a single cassette. Due to shrinkage, measurements may be different than those at time of procedure. B. Received in a formalin-containing bottle is a superficial fragment of pale lund and finely scaling, hair-bearing skin measuring 0.7 by 0.6 by 0.1 cm. The surgical margin is inked blue. The specimenis sectioned into 3 pieces and submitted entirely in a single cassette. Due to shrinkage, measurements may be different than those at time of procedure. djd/dxv The Characteristics of some immunohistochemical and immunofluorescence stains as well as in-situ hybridization tests were determined by the [facility] in ongoing senior quality technician and in compliance with regulations drawn from the Clinical Laboratory Improvement Act of 1988 (CLIA '88). These tests may rely on the use of analyte specific reagents that are subject to specific labeling requirements by the [place] FDA, and may only be performed in a facility that is certified by the [facility] as a high-complexity laboratory under CLIA '88. These tests are used for clinical purposesand are not investigational. For lab developed tests, the validation has been reviewed; the performance is considered acceptable for patient testing. ASSESSMENT AND PLAN Chronic kidney disease Stage 2/ Early stage ANNE-MARIE: Concern for CKD in the presence of recent rise of Cr which has since downtrended to 1.32. This can be explained by her recent ANNE-MARIE but would need further monitoring. Patient does not appear to have any proteinuria.. - F/u RFP in 6 months - Counceled on increase PO4 intake Hypertension Patient appears to have elevated blood pressures and is currently on Olmesartan 20mg- HCTZ 12.5. Although prescribed amlodipine, she is not currently on the medication. - Start Amlodipine 5mg daily - Follow BP for 2 weeks with a log Anemia of CKD Hb: 10.3 which appears to be chronic. Etiology can be 2/2 CKD. - Evaluate iron panel Secondary hyperparathyroidism Can be 2/2 CKD. PTH at 210. Infrequently taking Vitamin D. - Start Vitamin D daily 2000U DISPOSITION: The patient will return follow up in 6 months. MORALES RIVER MD PGY-3 Cosigned by Alejo Mi MD at 11/14/2022 11:32 AM CDT Associated attestation - Alejo Mi MD - 11/14/2022 11:32 AM CDT I have seen and examined the patient on 11/13/2022. I agree with the findings and plan of care as documented in the nephrology fellows's note. Alejo Mi MD documented in this encounter Plan of Treatment Not on file documented as of this encounter Results * Iron profile w/ IBC (11/15/2022 1:30 PM CDT) Iron 67 35 - 145 mcg/dL [facility] TIBC 284 250 - 400 mcg/dL [facility] Transferrin saturation 24 20 - 50 % [facility] Blood 11/15/2022 1:30 PM CDT 11/15/2022 3:51 PM CDT us Alejo Mi MD LAB BLOOD ORDERABLES Fin al Result JASON LEAVITT [facility] Department [place] [address] documented in this encounter Visit Diagnoses Diagnosis Malignant neoplasm metastatic to liver (HCC)- Primary Stage 3b chronic kidney disease (HCC) Hypomagnesemia Disorders of magnesium metabolism Hypophosphatemia Disorders of phosphorus metabolism documented in this encounter Care Teams Magento Developer Relationship Specialty Start Date End Date uJlio César Briseno MD PCP - General 10/01/16 Eren Lund MD Referring Physician Medical Oncology 11/25/18 Yohana Bowen MD Radiation Oncologist Radiation Oncology 11/25/18 documented as of this encounter
--- OUTSIDE RECORDS SUMMARY | 2024-06-25 22:15 | XMS_ITS | Encounter Summary ---
Author Organization [facility] Address [address] [place] [address] Phone Care Team Providers Care Top Stitcher Name Role Phone Julio César Briseno MD Primary Care Provider Eren Cr MD Unavailable [phone] Yohana Bowen MD Unavailable Encounter Details Date Type Department Care Team (Late st Contact Info) Description 10/18/2022 Orders Only 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 Gender Identity Not on file Sexual Orientation Straight 02/19/2021 9: 29 AM CDT Occupation Industry Job Start Date Job End Date retired Not on file Not on file Not on file documented as of this encounter Ordered Prescriptions Prescription Sig Dispense Quantity Refills Last Filled Start Date End Date ondansetron ODT (ZOFRAN-ODT) 8 mg disintegrating tabletIndications:Ca ncer Chemotherapy-Induced Nausea and Vomiting Take 1 tablet (8 mg total) by mouth every 8 (eight) hours as needed for nausea or vomiting 30 tablet 3 10/18/2022 3 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)- Primary CINV (chemotherapy-induced nausea and vomiting) documented in this encounter Care Teams Top Stitcher Relationship Specialty Start Date End Date Julio César Briseno MD PCP - General 10/01/16 Eren Cr MD Referring Physician Medical Oncology 11/25/18 Yohana Bowen MD Radiation Oncologist Radiation Oncology 11/25/18 documented as of this encounter
--- OUTSIDE RECORDS SUMMARY | 2024-06-25 22:15 | XMS_ITS | Encounter Summary ---
Author Organization [facility] Address [address] [place] [address] Phone Care Team Providers Care Principal Programmer Name Role Phone Julio César Briseno MD Primary Care Provider [phone] Eren Cr MD Unavailable [phone] Yohana Bowen MD Unavailable Reason for Visit * Reason Comments Chronic Fatigue Encounter Details Date Type Department Care Team (Latest Contact Info) Description 11/14/2022 10:30 AM CDT Home Care Visit [facility] [address] [place] [address] [address] [place] [id number] Sherlyn Orozco RN SN NON OASIS START OF CARE Social History Tobacco Use Types Packs/Day Years [...] on file 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 Gender Identity Not on file Sexual [...] Sign Reading Time Taken Comments Blood Pressure 162/88 11/14/2022 10:10 AM CDT Pulse 97 11/14/2022 10:10 AM CDT Temperature 36.3 ??C (97.3 ??F) 11/14/2022 10:10 AM C DT Respiratory Rate 17 11/14/2022 10:10 AM CDT Oxygen Saturation 98% 11/14/2022 10:10 AM CDT Inhaled Oxygen Concentration - - Weight 78 kg (172 lb) 11/14/2022 10:10 AM CDT Height - - Body Mass Index 30.47 11/13/2022 1:26 PM CDT documented in this encounter Miscellaneous Notes * Home Health Plan for Next Visit - Sherlyn Orozco RN - 11/14/2022 10:00 AM CDT Reason for today's visit assessment, [...] Dose Rate Site 0.9 % sodium chloride ([facility] sodium chloride 0.9%) injection 10 mL, intravenous, Weekly, First dose on Sat11/14/22 at 2315, Indications: line careIndications:line care Given 11/14/2022 10:30 AM CDT 10 mL sodium chloride 0.9 % solution 1,000 mL, intravenous, Weekly, First dose on Sat11/14/22 at 2315, Patient to infuse 1000mL of Normal Saline via CADD Coreas pump set at 300mL/Hr once weekly. Given 11/14/2022 10:30 AM CDT 1,000 mL documented in this encounter Home Health Visit - Care Plan Visit Details Visit Type -SN Non-OASIS Sta rt of Care Discipline -Mcc Problems Problem Description Start Date [...] home health visit Disciplines: SN, PT, OT, SOCIAL SERVICES MANAGER, DOLPHIN RESEARCHER, Skilled Disciplines Monitor patient's vital signs every [...] visit during episode of care Description: Home weaving teacher to measure vital signs during every home [...] of infection prevention including use of universal precautions and proper handwashing Dressing change Description: Skilled [...] and cover with occlusive dressing. clave changed. flush per med list with ns and heparin. Instruct on IV flush Description: Instruct patient/caregiver in how to perform flushing of IV line according to MD orders or protocol. Problem:Learning/Teac soco Needs - IV Therapy Completed pt verb good understanding of using push pause method for flushing port Instruct on IV supplies Description: Instruct patient/caregiver [...] Scheduled documented in this encounter Care Teams Principal Programmer Relationship Specialty Start Date End Date Julio César Briseno MD PCP - General 10/01/16 Eren Cr MD Referring Physician Medical Oncology 11/25/18 Yohana Bowen MD Radiation Oncologist Radiation Oncology 11/25/18 documented as of this encounter
--- OUTSIDE RECORDS SUMMARY | 2024-06-25 22:15 | XMS_ITS | Encounter Summary ---
Author Organization [facility] Address [address] [place] [address] Phone Care Team Providers Care Supervisor Case Loading Name Role Phone Julio César Briseno MD Primary Care Provider [phone] Eren Cr MD Unavailable [phone] Yohana Bowen MD Unavailable Encounter Details Date Type Department Care Team (Late st Contact Info) Description 10/12/2022 Orders Only [facility] Oncology [address] [place] [address] Eren Cr MD [address] [place] [address] Hypothyroidism due to medication Social History Tobacco [...] on file 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 No / Unsure 09/12/2022 10:42 AM WIRELESS SALES CONSULTANT documented as of this encounter Ordered Prescriptions Prescription Sig Dispense Quantity Refills Last Filled Start Date End Date levothyroxine (SYNTHROID) 88 mcg tabletIndications: Hypothyroidism due to medication Take 1 tablet (88 mcg total) by mouth commercial litigation attorney before breakfast 90 tablet 1 10/12/2022 documented in this encounter Plan of Treatment Not on file documented as of this encounter Visit Diagnoses Diagnosis Hypothyroidism due to medication documented in this encounter Discontinued Medications Medication Sig Discontinue Reason Start Date End Da te levothyroxine (SYNTHROID) 88 mcg tabletIndications:Hypot hyroidism due to medication TAKE 1 TABLET (88 MCG TOTAL) BY MOUTH NURSE WOUND BEFORE BREAKFAST Reorder 09/27/2022 10/12/2022 documented as of this encounter Care Teams Supervisor Case Loading Relationship Specialty Start Date End Date Julio César Briseno MD PCP - General 10/01/16 Eren Cr MD Referring Physician Medical Oncology 11/25/18 Yohana Bowen MD Radiation Oncologist Radiation Oncology 11/25/18 documented as of this encounter
--- OUTSIDE RECORDS SUMMARY | 2024-06-25 22:15 | XMS_ITS | Encounter Summary ---
Author Organization [facility] Address [address] [place] [address] Phone Care Team Providers Care Idea Worker Name Role Phone Julio César Briseno MD Primary Care Provider [phone] Eren Cr MD Unavailable [phone] Yohana Bowen MD Unavailable Encounter Details Date Type Department Care Team (Late st Contact Info) Description 11/14/2022 Orders Only [facility] Nephrology [address] [facility] Advanced Medicine 5th [place] [address] [place] [address] Alejo Mi MD [facility] [address] [place] [address] Social History Tobacco Use Types [...] on file 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
--- OUTSIDE RECORDS SUMMARY | 2024-06-25 22:15 | XMS_ITS | Encounter Summary ---
Author Organization [facility] Home Care [facility] es Address [address] [place] [address] Phone Care Team Providers Care Cattle Inspector Name Role Phone Julio César Briseno MD Primary Care Provider [phone] Eren Cr MD Unavailable [phone] Yohana Bowen MD Unavailable Reason for Visit * Reason Comments Weakness - Generalized Encounter Details Date Type Department Care Team (Late st Contact Info) Description 09/30/2022 12:15 PM CDT Home Care Visit [facility] [address] [place] [address] Priti Joya, RN SN HOME VISIT Social History Tobacco [...] on file 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 No / Unsure 09/12/2022 10:42 AM BALCONY WORKER documented as of this encounter Last Filed Vital Signs Vital Sign Reading Time Taken Comments Blood Pressure 100/70 09/30/2022 2:45 PM CDT Pulse 88 09/30/2022 2:45 PM CDT Temperature - - Respiratory Rate 18 09/30/2022 2:45 PM CDT Oxygen Saturation 96% 09/30/2022 2:45 PM CDT Inhaled Oxygen Concentration - - Weight - - Height - - Body Mass Index - - documented in this encounter Miscellaneous Notes * Home Health Plan for Next Visit - Priti Joya RN - 09/30/2022 2:15 PM CDT Reason for today's visit: Patient requesting visit for port access and administration of IVF. Patient diagnosis with covid on 09/26/22 Discuss plan of care with: Patient and Spouse who verbalize understanding. Discharge planning: Discharge to care of spouse when home care is no longer needed. Plan for next visit: Port access and IVF setup with CADD pump. documented in this encounter Plan of Treatment Not on file documented as of this encounter Visit Diagnoses Not on filedocumented in this encounter Administered Medications Inactive Administered Medications - up to 3 most recent administrations Medication Order MAR Action Action Date Dose Rate Site 0.9 % sodium chloride ([facility] sodium chloride 0.9%) injection 10 mL, intravenous, Weekly, First dose on Sat10/01/22 at 1045, Indications: line careIndications:line care Given 09/30/2022 2:20 PM CDT 10 mL sodium chloride 0.9 % solution 1,000 mL, intravenous, Weekly, First dose on Sat10/01/22 at 1045, Patient to infuse 1000mL of Normal Saline via CADD Coreas pump set at 300mL/Hr once weekly. Given 09/30/2022 2:30 PM CDT 1,000 mL documented in this encounter Home Health Visit - Care Plan Visit Details Visit Type -SN Home Visit Discipline -Senior Living Problems Problem Description Start Date Status Goals Interventions Safety concerns Disciplines: Senior Living Safety needs related to infusion administration 09/13/2022 [...] home health visit Disciplines: SN, PT, OT, COMPENSATION AND BENEFITS 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, GARDE MANGER, Skilled Disciplines Monitor patient's vital signs every [...] visit during episode of care Description: Home racquet maker to measure vital signs during every home [...] MD and infusion service Problem:Safety concerns Completed patient and spouse aware of potential complications, both verbalize understanding. IV Access Care/Maintenance Description: Skilled Nurse to [...] of each line upon completion of infusion/flushes. Problem:Learning/Te aching Needs - IV Therapy Completed Instruct on IV flush Description: Instruct patient/caregiver in how to perform flushing of IV line according to MD orders or protocol. Problem:Learning/Te aching Needs - IV Therapy Completed spouse demonstrates knowledge of how to safely flush port after IVF completion. Instruct on IV supplies Description: Instruct patient/caregiver in how to gather supplies, how to restock IV supplies in the home, prepare supplies, administer IV medication and disconnect IV medication, inspecting solution and supplies before infusing, and waste disposal. Problem:Learning/Te aching Needs - IV Therapy Scheduled Instruct Infection [...] when to notify HH nurse and/or physician. Problem:Learning/Te aching Needs - IV Therapy Scheduled IV Administration Description: Skilled Nurse to instruct patient/caregiver on how to properly administer medication saline and heparin. Skilled Nurse to instruct patient/caregiver to administer IV medication as ordered including saline and heparin flushes. Reason for Therapy: IV hydration. Problem:Learning/Te aching Needs - IV Therapy Scheduled Dressing change [...] weekly and PRN. Type of line: Port-a-cath Problem:Learning/Te aching Needs - IV Therapy Scheduled Homebound Status Description: Patient is homebound due to medical condition as evidenced by dehydration requiring IV fluid. Problem:Homebound Status Goal:Patient receives care at the most appropriate care setting Completed Patient is homebound due to medical condition, immunosuppression and unable to complete ADLs/Personal care. Monitor Vital Signs Description: Monitor blood pressure, pulse, oxygen saturation, respirations Problem:Monitor patient's vital signs every home health visit Goal:Measure vital signs during every home health visit during episode of care Completed Educate Family on Infection Prevention Description: Instructed family on signs and symptoms of infection IE: fever, odor, change in color, increased amount of drainage, purulent drainage, warmth. Problem:Infection Prevention Goal:Verbalize signs of infection Completed Educated patient and spouse on prevention of infection. Both patient and spouse verbalize understanding. Aspects of Care Description: Instruct patient/caregiver [...] Goal:Demonstrate use of safety precautions Completed Patient and spouse aware of how to prevent falls in the home. Assess safety Description: Assess patient safety Problem:Safety concerns Goal:Demonstrate use of safety precautions Completed Code Status Description: Discuss with patient/caregiver code status Problem:Safety concerns Goal:Demonstrate use of safety precautions Completed Instruct on dehydration Description: Contact MD and/or CWON if ileostomy patient output is greater than 1200 ml in 24hrs. May consult RD for ideas/education Problem:Risk for deficient fluid volume Goal:Maintain Hydration Completed Patient and spouse educated on the importance of taking in clear liquids. Both verbalize understanding. Assess for dehydration Description: Assess vital signs, skin turgor capillary refill and mucous membranes Problem:Risk for deficient fluid volume Goal:Maintain Hydration Completed Patient has low BP. Skin is pale with poor turgor. IVF started after port accessed. Educate to prevent dehydration Description: Instruct per [...] Scheduled documented in this encounter Care Teams Cattle Inspector Relationship Specialty Start Date End Date Julio César Briseno MD PCP - General 10/01/16 Eren Cr MD Referring Physician Medical Oncology 11/25/18 Yohana Bowen MD Radiation Oncologist Radiation Oncology 11/25/18 documented as of this encounter
--- OUTSIDE RECORDS SUMMARY | 2024-06-25 22:15 | XMS_ITS | Encounter Summary ---
Author Organization [facility] Healthcare Address [address] [place] [address] Care Team Providers Care Sand Mill Grinder Name Role Phone Julio César Briseno MD Primary Care Provider [phone] Eren Cr MD Unavailable [phone] Yohana Bowen MD Unavailable Encounter Details Date Type Department Care Team (Latest Contact Info) Description 11/15/2022 1:03 PM CDT - 11/15/2022 11:59 PM CDT Hospital Encounter [facility] [address] [place] [address] [phone] Neuroendocrine carcinoma (CMS/HCC) (HCC); Malignant neoplasm metastatic [...] on file Legal Sex Female 2:[address] Gender Identity Not on file Sexual Orientation [...] 0.9 % sodium chloride ([facility] sodium chloride 0.9%) injectionIndication s:line care Infuse 10 mL into a venous catheter once a week On saturday06/20/20 24 amLODIPine (NORVASC) 5 mg tabletIndications:h ypertension Take 0.5 tablets (2.5 mg total) by mouth nightly 07/27/2022 06/11/20 23 ascorbic acid, vitamin C, 500 mg capsuleIndications: supplement 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 tablet 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 before 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 07/04/2016 06/20/20 24 cholecalciferol (VITAMIN D-3) 2,000 unit capsule Take 1 capsule (2,000 Units total) by mouth daily 30 capsule 2 04/25/2019 11/17/19 23 clotrimazole-betame thasone (LOTRISONE) cream Apply 1 Application topically daily as needed (rash) 06/20/20 24 coenzyme B15-cvsmggo E 100-5 mg-unit capsuleIndications: supplement Take 1 tablet 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 Avoid [place]'s Wort, grapefruit products and [place] oranges while on treatment. 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) DIFFERENTIAL AUTO Routine 11/15/2022 1:3 0 PM CDT Neuroendocrine carcinoma (HCC) Malignant neoplasm metastatic to liver (HCC) IRON PROFILE W/ IBC Routine 11/15/2022 1 :30 PM CDT 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) CHROMOGRANIN A Routine 11/15/2022 1:30 PM CDT 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) CBC WITH AUTO DIFFERENTIAL Routine 11/15/2022 1:30 PM CDT 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) VITAMIN D 25 HYDROXY Routine 11/15/2022 1:30 PM CDT 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) PHOSPHORUS Routine 11/15/2022 1:30 PM CDT 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) MAGNESIUM STAT 11/15/2022 1:30 PM CDT Neuro-endocrine carcinoma (HCC) LIPID PANEL Routine 11/15/2022 1:30 PM CDT 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 Current interpretive data was last revised 2018. Creatinine Ur 107.1 mg/dL [facility] Comment: Interpretive Data No reference range established. Current interpretive data was last revised 2018. Protein/creatinin e ratio 65.4 0.0 - 180.0 mg/g CR [facility] Urine 11/15/2022 3:45 PM CDT 11/15/2022 6:33 PM CDT Eren Cr MD LAB URINE ORDERABLES Final Re sult [facility] [place] [address] * (ABNORMAL) eGFR (11/15/2022 1:30 PM CDT) Pathologist [facility] [place] eGFR 48(L) 90 - 130 mL/min/1. 73 m2 [facility] Comment: Interpretive Data Reference Interval Normal ?>/= [...] interpretive data was last reviewed 2021. Blood 11/15/2022 1:30 PM CDT 11/15/2022 1:32 PM CDT Eren Cr MD LAB BLOOD ORDERABLES Final Re sult [facility] Department [place] [address] * (ABNORMAL) Differential, auto (11/15/2022 1:30 PM CDT) Neutrophil abs 2.1 1.7 - 6.5 K/cumm [facility] Comment:Testing performed by : [facility], [address] [place] [id number] Imm gran abs 0.0 0.0 - 0.1 K/cumm [facility] Lymphocyte abs 0.5(L) 0.8 - 3.3 K/cumm [facility] Monocyte abs 0.6 0.2 - 0.8 K/cumm [facility] Eosinophil abs 0.2 0.0 - 0.5 K/cumm [facility] Basophil abs 0.0 0.0 - 0.1 K/cumm [facility] Neutrophil pct 61.5 % [facility] Comment: Interpretive Data Percent cell count reference ranges are not reported, since discordance with absolute values may lead to misinterpretation of CBC data. Current Interpretive Data was last revised on 2017. Imm gran pct 0.6 % [facility] Comment: Interpretive Data Percent cell count reference ranges are not reported, since discordance with absolute values may lead to misinterpretation of CBC data. Current Interpretive Data was last revised on 2017. Lymphocyte pct 14.9 % [facility] Comment: Interpretive Data Percent cell count reference ranges are not reported, since discordance with absolute values may lead to misinterpretation of CBC data. Current Interpretive Data was last revised on 2017. Monocyte pct 15.8 % [facility] Comment: Interpretive Data Percent cell count reference ranges are not reported, since discordance with absolute values may lead to misinterpretation of CBC data. Current Interpretive Data was last revised on 2017. Eosinophil pct 6.6 % [facility] Comment: Interpretive Data Percent cell count reference ranges are not reported, since discordance with absolute values may lead to misinterpretation of CBC data. Current Interpretive Data was last revised on 2017. Basophil pct 0.6 % [facility] Comment: Interpretive Data Percent cell count reference ranges are not reported, since discordance with absolute values may lead to misinterpretation of CBC data. Current Interpretive Data was last revised on 2017. Blood 11/15/2022 1:30 PM CDT 11/15/2022 1:32 PM CDT us Eren Cr MD LAB BLOOD ORDERABLES Final Re sult Performing Organization Address City/[facility]/ZIP Co de Phone Number [facility] [place] [place] [address] * Iron profile w/ IBC (11/15/2022 1:30 PM CDT) Iron 67 35 - 145 mcg/dL [facility] TIBC 284 250 - 400 mcg/dL [facility] Transferrin saturation 24 20 - 50 % [facility] Blood 11/15/2022 1:30 PM CDT 11/15/2022 3:51 PM CDT Alejo Mi MD LAB BLOOD ORDERABLES Fin al Result Performing Organization Address City/[facility]/ZIP Co de Phone Number [facility] Department [place] [address] * (ABNORMAL) Magnesium (11/15/2022 1:30 PM CDT) Magnesium 1.3(L) 1.4 - 2.5 mg/dL [facility] Comment:Testing performed by : [facility], [address] [place] [id number] Blood 11/15/2022 1:30 PM CDT 11/15/2022 1:32 PM CDT us Eren Cr MD LAB BLOOD ORDERABLES [facility] Department [place] [address] * (ABNORMAL) Lipid panel (11/15/2022 1:30 PM CDT) Cholesterol 161 30 - 199 mg/dL [...] revised on 2018. Triglycerides 286(H) <=149 mg/dL [facility] Comment: Interpretive Data [...] on 2018. HDL 54 >=40 mg/dL [facility] Comment: Interpretive Data Ages < or [...] on 2018. LDL, calculated 50 <=129 mg/dL [facility] Comment: Interpretive Data Ages < or [...] on 2018. Non-HDL Cholesterol 107 mg/dL [facility] Comment: Interpretive Data Ages < [...] revised on 2018. Chol/HDL ratio 3 [facility] Blood 11/15/2022 1:30 PM CDT 11/15/2022 3:33 PM CDT Eren Cr MD LAB BLOOD ORDERABLES Final Re sult Performing Organization Address City/[facility] de Phone Number [facility] Department [place] [address] * Phosphorus (11/15/2022 1:30 PM CDT) [facility] Phosphorus, pl 2.5 2.3 - 4.5 mg/dL [facility] Comment:Testing performed by : [address] [address] Blood 11/15/2022 1:30 PM CDT 11/15/2022 1:32 PM CDT Eren Cr MD LAB BLOOD ORDERABLES Final Re sult Performing Organization Address City/[facility]/ZIP Co de Phone Number [facility] Department [place] [address] * Vitamin D 25 hydroxy (11/15/2022 1:30 PM CDT) [facility] Vitamin D 25-OH 32 30 - 80 ng/mL [facility] Blood 11/15/2022 1:30 PM CDT 11/15/2022 3:33 PM CDT Eren Cr MD LAB BLOOD ORDERABLES Final Re sult [facility] Department [place] [address] * (ABNORMAL) CBC with auto differential (11/15/2022 1:30 PM CDT) [facility] WBC 3.5(L) 3.8 - 9.9 K/cumm [facility] Comment:Testing performed by : [address] [address] Hgb 10.7(L) 11.9 - 15.5 g/dL [facility] Comment:Testing performed by : [address] [address] Hct 32.4(L) 35.6 - 45.5 % [facility] Comment:Testing performed by : [address] [address] Plt 98(L) 150 - 400 K/cumm [facility] Comment:Testing performed by : [address] [address] MPV 10.1 9.1 - 12.3 fL [facility] RBC 3.27(L) 3.90 - 5.20 M/cumm [facility] MCV 99.1(H) 81.3 - 96.4 fL [facility] MCH 32.7 27.1 - 33.3 pg [facility] MCHC 33.0 32.3 - 35.7 g/dL [facility] RDW CV 13.7 11.1 - 14.9 % [facility] RDW SD 49.5(H) 35.7 - 48.1 fL [facility] NRBC abs 0.00 0.00 - 0.01 K/cumm [facility] Blood 11/15/2022 1:30 PM CDT 11/15/2022 1:32 PM CDT Eren Cr MD LAB BLOOD ORDERABLES Final Re sult [facility] Department [place] [address] * (ABNORMAL) Comprehensive metabolic panel (11/15/2022 1:30 PM CDT) Sodium 136 135 - 145 mmol/L [facility] Comment:Testing performed by : [address] [address] Potassium, pl 3.7 3.3 - 4.9 mmol/L [facility] Chloride 104 97 - 110 mmol/L [facility] CO2 26 22 - 32 mmol/L [facility] Anion gap 6 2 - 15 mmol/L [facility] BUN 19 8 - 25 mg/dL [facility] Creatinine 1.20(H) 0.60 - 1.10 mg/dL [facility] Glucose 110 70 - 199 mg/dL [facility] Comment: Interpretive Data Fasting glucose [...] Calcium 10.1 8.5 - 10.3 mg/dL [facility] Bilirubin, total 0.5 0.1 - 1.2 mg/dL [facility] Protein, pl 6.6 6.5 - 8.5 g/dL [facility] Albumin 4.0 3.5 - 5.0 g/dL [facility] Alk phos 65 40 - 130 Units/L [facility] ALT 22 7 - 45 Units/L [facility] AST 33 10 - 45 Units/L [facility] Blood 11/15/2022 1:30 PM CDT 11/15/2022 1:32 PM CDT us Eren Cr MD LAB BLOOD ORDERABLES Final Re sult [facility] Department [place] [address] * (ABNORMAL) Chromogranin A (11/15/2022 1:30 PM CDT) Chromogranin A 1170(H) <93 ng/mL [facility] Comment: Impaired renal or hepatic function or treatment with proton pump inhibitors may result in artifactual elevations of Chromogranin A. ADDITIONAL INFORMATION This test was developed and its performance characteristics determined by [facility] in a manner consistent with CLIA [...] homogeneous time-resolved immunofluorescent assay manufactured by [employer] and performed on the [employer]act Plus. ? Values obtained with different assay methods or kits may be different and cannot be used interchangeably. ? Test results cannot be interpreted as absolute evidence for the presence or absence of malignant disease. Test Performed by: [facility] [address] [place] [address] [employer]rawl Net Maker: Immanuel Novak M.D. 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
--- OUTSIDE RECORDS SUMMARY | 2024-06-25 22:15 | XMS_ITS | Encounter Summary ---
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 No / Unsure 09/12/2022 10:42 AM CAR SEALER documented as of this encounter Last Filed Vital Signs Vital Sign Reading Time Taken Comments Blood Pressure 138/80 10/04/2022 12:00 AM CDT Pulse 74 10/04/2022 12:00 AM CDT Temperature 36.7 ??C (98.1 ??F) 10/04/2022 12:00 AM C DT Respiratory Rate 17 10/04/2022 12:00 AM CDT Oxygen Saturation 96% 10/04/2022 12:00 AM CDT Inhaled Oxygen Concentration - - Weight - - Height - - Body Mass Index - - documented in this encounter Miscellaneous Notes * Home Health Plan for Next Visit - Sherlyn Orozco RN - 10/04/2022 12:00 PM CDT Reason for today's visit assessment, instruction, vitals, port access Discuss plan of care with pt and spouse verb good understanding Discharge planning indef Plan for next visit weekly assessment, instruction, vitals, port access documented in this encounter Plan of Treatment Not on file documented as of this encounter Visit Diagnoses Not on filedocumented in this encounter Administered Medications Inactive Administered Medications - up to 3 most recent administrations Medication Order MAR Action Action Date Dose Rate Site sodium chloride 0.9 % solution 1,000 mL, intravenous, Weekly, First dose on Sat10/05/22 at 1245, Patient to infuse 1000mL of Normal Saline via CADD Coreas pump set at 300mL/Hr once weekly. Given 10/04/2022 12:00 PM CDT 1,000 mL documented in this encounter Home Health Visit - Care Plan Visit Details Visit Type -SN Home Visit Discipline -Alf Problems Problem Description Start Date Status Goals Interventions Safety concerns Disciplines: Alf Safety needs related to infusion administration 09/13/2022 [...] home health visit Disciplines: SN, PT, OT, FOREST FIRE PREVENTION SPECIALIST, TOLL BRIDGE ATTENDANT, Skilled Disciplines Monitor patient's vital signs every [...] visit during episode of care Description: Home operations staff specialist security to measure vital signs during every home [...] IV Therapy Completed Port reaccess per rn, deaccess port needle if present per spouse, rn performed sterile prep to insertion site with chlorhexidine x 30 seconds, allowed to dry, access with 20g 3/4 inch gripper needle,assess for blood return, secured with steri strips and cover with occlusive dressing, changed clave with each port reaccess, flushed per med list with ns and heparin Instruct on IV flush Description: Instruct patient/caregiver in how to perform flushing of IV line according to MD orders or protocol. Problem:Learning/Teac soco Needs - IV Therapy Completed pt spouse verb good understanding of push-pause method for flushing port Instruct on IV [...] Scheduled documented in this encounter Care Teams Labor Relations Consultant Relationship Specialty Start Date End Date Julio César Briseno MD PCP - General 10/01/16 Eren Cr MD Referring Physician Medical Oncology 11/25/18 Yohana Bowen MD Radiation Oncologist Radiation Oncology 11/25/18 documented as of this encounter
--- OUTSIDE RECORDS SUMMARY | 2024-06-25 22:15 | XMS_ITS | Encounter Summary ---
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 Unable to assess 11/13/2022 9:18 AM CDT documented as of this encounter Plan of Treatment Not on file documented as of this encounter Visit Diagnoses Not on filedocumented in this encounter Care Teams Blender Relationship Specialty Start Date End Date Julio César Briseno MD PCP - General 10/01/16 Eren Cr MD Referring Physician Medical Oncology 11/25/18 Yohana Bowen MD Radiation Oncologist Radiation Oncology 11/25/18 documented as of this encounter
--- OUTSIDE RECORDS SUMMARY | 2024-06-25 22:15 | XMS_ITS | Encounter Summary ---
Author Organization [facility] Address [address] [place] [address] Phone Care Team Providers Care Sewage Reticulation Drafting Officer Name Role Phone Julio César Briseno MD Primary Care Provider [phone] Eren Cr MD Unavailable [phone] oYhana Bowen MD Unavailable Encounter Details Date Type Department Care Team (Late st Contact Info) Description 11/16/2022 Orders Only [facility] Nephrology [address] [facility] [address] 5th [place] [address] [place] [address] Alejo Mi MD [facility] [address] [place] [address] Social History Tobacco Use Types [...] on file Legal Sex Female 2:41 PM SLUICE TENDER Gender Identity Not on file Sexual [...] AM CDT documented as of this encounter Ordered Prescriptions Prescription Sig Dispense Quantity Refills Last Filled Start Date End Date cholecalciferol (VITAMIN D-3) 1,000 unit Take 1 tablet/capsu le (1,000 Units total) by mouth daily 90 tablet/capsule 3 11/16/2022 documented in this encounter Plan of Treatment Not on file documented as of this encounter Visit Diagnoses Not on filedocumented in this encounter Discontinued Medications Medication Sig Discontinue Reason Start Date End Da te cholecalciferol (VITAMIN D-3) 2,000 unit capsule Take 1 capsule (2,000 Units total) by mouth daily 04/25/2019 11/16/2022 documented as of this encounter Care Teams Sewage Reticulation Drafting Officer Relationship Specialty Start Date End Date Julio César Briseno MD PCP - General 10/01/16 Eren Cr MD Referring Physician Medical Oncology 11/25/18 Yohana Bowen MD Radiation Oncologist Radiation Oncology 11/25/18 documented as of this encounter
--- OUTSIDE RECORDS SUMMARY | 2024-06-25 22:16 | XMS_ITS | Encounter Summary ---
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) Procedures IR Contrast Injection Evaluation Central Venous Access Device Consult to Interventional Radiology Eren Cr MD [address] [facility] [address] [place] [address] Phone: tel: fax: [address] [address] Referral ID Status Reason Start Date Expiration Date Visits Re quested Visits Authorized [id number] Closed 08/30/2022 09/29/2023 1 1 Encounter Details Date Type Department Care Team (Latest Contact Info) Description 09/04/2022 6:51 AM [facility] - 09/04/2022 11:59 PM [facility] Hospital Encounter [facility] Radiology [address] [address] 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) Discharge Disposition: Discharge to home [...] on file Legal Sex Female 2:41 PM [facility] Gender Identity Not on file Sexual Orientation Straight 02/19/2021 9: 29 AM CDT Occupation Industry Job Start Date Job End Date retired Not on file Not on file Not on file documented as of this encounter Last Filed Vital Signs Vital Sign Reading Time Taken Comments Blood Pressure 139/56 09/04/2022 8:26 AM [facility] Pulse 60 09/04/2022 8:26 AM [facility] Temperature 36.3 ??C (97.3 ??F) 09/04/2022 8:26 AM CS T Respiratory Rate 18 09/04/2022 8:26 AM [facility] Oxygen Saturation 100% 09/04/2022 8:26 AM [facility] Inhaled Oxygen Concentration - - Weight - - Height - - Body Mass Index - - documented in this encounter Discharge Instructions * Discharge Instructions* Sonia Horton RN - 09/04/2022 8:24 AM [facility] Interventional Radiology Outpatient Discharge Instructions/Note Diagnosis: neuroendocrine Procedure: port check Diet: You may resume your previous diet. Medication: [x] Usual medications; check with your regular doctor for any questions. Procedure Site Care: [] teaching sheet given [] Skin glue was used to close your incision. See teaching sheet. [x] Keep site clean and dry. [] You may bathe or shower tomorrow. [] Change the dressing daily and if it becomes wet or dirty. [] Cover entire area with plastic and tape down edges before showering to keep site clean and dry. [] The suture at your dialysis access site may be removed by the dialysis staff on ___/___/___ (date). To contact an Interventional Radiologist at [facility] call [phone] Saturday through Saturday from 7:30am-4:30pm. At all other times call [phone] and ask that the Interventional Radiologist be paged. To contact an Interventional Radiologist at [facility] call [phone] Saturday through Saturday from 7:30am-3:30pm. Special instructions: Please call Interventional Radiology for any procedure related questions or problems including: Extreme swelling or bruising at the site. Unusual drainage or bleeding from procedure site. Fever of 101.5 F for more than 24 hours. Severe procedure related pain. [facility] documented in this encounter Medications at Time [...] tablet (20 mg total) by mouth nightly amLODIPine (NORVASC) 5 mg tabletIndication s:hypertension Take 0.5 tablets (2.5 mg total) by mouth nightly 07/27/2022 3 ascorbic acid, vitamin C, 500 mg capsuleIndicatio ns:supplement Take 1 tablet by mouth marsh buggy operator before breakfast 07/04/2016 4 cholecalciferol (VITAMIN D-3) 2,000 unit capsule Take 1 capsule (2,000 Units total) by mouth daily 30 capsule 2 04/25/2019 3 clotrimazole-bet amethasone (LOTRISONE) cream Apply 1 Application topically daily as needed (rash) 4 coenzyme [id number] 100-5 mg-unit capsuleIndicatio ns:supplement Take 1 tablet by mouth marsh buggy operator before breakfast 4 diphenoxylate-at ropine (LOMOTIL) [...] as needed for rhinitis or allergies 4 INV-WU_BJ cabozantinib/maris cebo (2017-08-122/A02 1602) 20 mg tabletIndication s:cancer study Take 1 tablet (20 mg total) by mouth nightly Take on an empty stomach (no food for 2 hours before and 1 hour after each dose).?? Avoid Jas's Wort, grapefruit products and [place] oranges while on treatment. placed on hold 09/26/22 for covid 01/29/2022 4 levothyroxine (SYNTHROID) 88 mcg tabletIndication s:Hypothyroidism due to medication TAKE 1 TABLET (88 MCG TOTAL) BY MOUTH STOREPERSON BEFORE BREAKFAST 30 tablet 1 09/03/2022 3 LORazepam (ATIVAN) 0.5 mg tabletIndication s:MRI scan [...] or vomiting 30 tablet 3 08/17/2022 3 oxyCODONE (ROXICODONE) 5 mg immediate release tabletIndication s:Pain Take 0.5 tablets (2.5 mg total) by mouth every 6 (six) hours as needed for pain 5 tablet 04/10/2022 3 triamcinolone (KENALOG) 0.1 % ointment Apply to itchy rash on hands twice daily until improved 454 g 1 05/06/2020 4 documented as of this encounter Discharge Disposition Disposition Code Departure Means Destination Discharge to home or self care documented in this encounter Miscellaneous Notes * Post-Procedure Note - Soniya Flores PA - 09/04/2022 8:00 AM [facility] Radiology Brief Post Procedure Note Attending: Callie Mills M.D. Pneumatic Hoist Operator: SERGEY Onofre Sedation/Anesthesia: None Pre-Op/Pre-Procedure Diagnosis: neuroendocrine, issues with blood return from port Post-Op/Post-Procedure Diagnosis: same Procedure Performed: port check Procedure Findings: Contrast injection reveals possible very small fibrin sheath. Brisk blood return with inspiration. Complications: None Estimated Blood Loss: None Specimens: None Condition: Stable Full report to follow. [facility] * Pre-Procedure Note - Soniya Flores PA - 09/04/2022 8:00 AM [facility] Radiology Procedure Plan Indication: difficulty with blood return from port Planned Procedure: port check [facility] documented in this encounter Plan of Treatment Not on file documented as of this encounter Procedures Procedure Name Priority Date/Time Associated Diagnosis Comments CONTRAST INJECTION EVALUATION CENTRAL VENOUS ACCESS DEVICE Schedule Routine, Read Routine (OP Routine) 09/04/2022 8:20 AM [facility] 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) documented in this encounter Results * IR Contrast Injection Evaluation Central Venous Access Device (09/04/2022 8:20 AM [facility]) Anatomical Region Laterality Modality Body N/A X-Ray Angiograph y 09/04/2022 2:55 PM [facility] Impressions 09/04/2022 2:55 PM [facility] Appropriately functioning central venous catheter. PLAN: Port okay to use. May have intermittent issues with blood return, should resolve with flushing and patient inhalation. Patient is no longer receiving intravenous chemotherapy, only fluids, therefore would not recommend port replacement at this time. Electronically signed by: Soniya Richardson 09/04/2022 2:55 PM [facility] EXAMINATION: ??CENTRAL VENOUS CATHETER CHECK HISTORY/INDICATION: ??81-year-old female with history of neuroendocrine carcinoma referred for port evaluation due to difficulty with blood aspiration. Provider PRESENCE: Virginia Pal was present from the beginning to the end of the procedure. ?? SEDATION: ??No sedation. TECHNIQUE: ??The risks, benefits and alternatives were discussed and informed consent was obtained. Prior to beginning the procedure, [place] Protocol was performed to confirm the patient's identity and the planned procedure. ??For procedures that utilize fluoroscopy, the fluoroscopy time has been recorded in the electronic medical record. The patient's existing right chest port was injected with contrast and multiple fluoroscopic images were obtained. Following imaging the catheter was flushed with heparin 100U/ml. ESTIMATED BLOOD LOSS: Minimal. CONDITION: Stable. DISCHARGED TO: Recovery then home. FINDINGS: Contrast injection showed very small fibrin sheath on distal tip of catheter. Catheter is in appropriate position. There is brisk blood return from the port during patient inhalation. Procedure Note Soniya Flores PA - 09/04/2022 EXAMINATION: CENTRAL VENOUS CATHETER CHECK HISTORY/INDICATION: 81-year-old female with history of neuroendocrine carcinoma referred for port evaluation due to difficulty with blood aspiration. Provider PRESENCE: Virginia Pal was present from the beginning to the end of the procedure. SEDATION: No sedation. TECHNIQUE: The risks, benefits and alternatives were discussed and informed consent was obtained. Prior to beginning the procedure, [place] Protocol was performed to confirm the patient's identity and the planned procedure. For procedures that utilize fluoroscopy, the fluoroscopy time has been recorded in the electronic medical record. The patient's existing right chest port was injected with contrast and multiple fluoroscopic images were obtained. Following imaging the catheter was flushed with heparin 100U/ml. ESTIMATED BLOOD LOSS: Minimal. CONDITION: Stable. DISCHARGED TO: Recovery then home. FINDINGS: Contrast injection showed very small fibrin sheath on distal tip of catheter. Catheter is in appropriate position. There is brisk blood return from the port during patient inhalation. IMPRESSION: Appropriately functioning central venous catheter. PLAN: Port okay to use. May have intermittent issues with blood return, should resolve with flushing and patient inhalation. Patient is no longer receiving intravenous chemotherapy, only fluids, therefore would not recommend port replacement at this time. 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) documented in this encounter Administered Medications Inactive Administered Medications - up to 3 most recent administrations Medication Order MAR Action Action Date Dose Rate Site heparin 100 unit/mL injection As needed, Starting on Sat09/04/22 at 0820, Intra-Op, Indications: Maintain Patency of Indwelling Vascular CatheterIndications:Maintain Patency of Indwelling Vascular Catheter Given 09/04/2022 8:20 AM [facility] 500 Units ioversoL (OPTIRAY 350) injection As needed, Starting on Sat09/04/22 at 0820, Intra-Op Given 09/04/2022 8:20 AM [facility] 15 mL documented in this encounter Orders Discharge Count Last Ordered Date First Orde red Date DISCHARGE PATIENT 1 09/04/2022 documented in this encounter Care Teams Machine Operator General Relationship Specialty Start Date End Date Julio César Briseno MD PCP - General 10/01/16 Eren Cr MD Referring Physician Medical Oncology 11/25/18 Yohana Bowen MD Radiation Oncologist Radiation Oncology 11/25/18 documented as of this encounter
--- OUTSIDE RECORDS SUMMARY | 2024-06-25 22:16 | XMS_ITS | Encounter Summary ---
Author Organization [facility] Address [address] [place] [address] Phone Care Team Providers Care Acquisition Cost Estimator Name Role Phone Julio César Briseno MD Primary Care Provider [phone] Eren Cr MD Unavailable [phone] Yohana Bowen MD Unavailable Reason for Visit * Reason Onset Date Comments med refill 08/17/2022 Encounter Details Date Type Department Care Team (Late st Contact Info) Description 08/17/2022 Telephone [facility] Oncology [address] [place] [address] Eren Cr MD [address] [address] [place] [address] med refill Social History Tobacco Use Types Packs/Day Years Used Date Smoking Tobacco: Never Smokeless Tobacco: Never Alcohol Use Standard Drinks/Week Comments Yes 1 (1 standard drink = 0.6 oz pur e alcohol) AUDIT-C Answer Date Recorded Q1: How often do you have a drink containing alc ohol? Monthly or less 02/16/2021 Average Number of Drinks Not on file 021 Frequency of Binge Drinking Not on file 02/05 Comments No Sex and Gender Information Value Date Recorded Sex Assigned at Not on file Legal Sex Female 2:41 PM SURGICAL SCRUB TECHNOLOGIST Gender Identity Not on file Sexual Orientation Straight 02/19/2021 9: 29 AM CDT Occupation Industry Job Start Date Job End Date retired Not on file Not on file Not on file documented as of this encounter Miscellaneous Notes * Telephone Encounter - Sola Heredia - 08/17/2022 5:19 PM CST Patient's daughter called for patient to request refill of Zofran. Patient having intermittent nausea following IV fluids yesterday. Zofran refill sent to [facility] pharmacy as requesting. They will call if no improvement or worsening of nausea. ICAL SCRUB TECHNOLOGIST documented in this encounter Plan of Treatment Not on file documented as of this encounter Visit Diagnoses Not on filedocumented in this encounter Care Teams Acquisition Cost Estimator Relationship Specialty Start Date End Date Julio César Briseno MD PCP - General 10/01/16 Eren Cr MD Referring Physician Medical Oncology 11/25/18 Yohana Bowen MD Radiation Oncologist Radiation Oncology 11/25/18 documented as of this encounter
--- OUTSIDE RECORDS SUMMARY | 2024-06-25 22:16 | XMS_ITS | Encounter Summary ---
Author Organization [facility] Home Care Servic es Address [facility] [place] [address] Phone Care Team Providers Care Database Marketing Manager Name Role Phone Julio César Briseno MD Primary Care Provider [phone] Eren Cr MD Unavailable [phone] Yohana Bowen MD Unavailable Encounter Details Date Type Department Care Team (Latest Contact Info) Description 09/13/2022 9:00 AM CATERING TRUCK OPERATOR Home Care Visit [facility] [address] [place] [address] Mj Lima, [place] SN OASIS START OF CARE Social History Tobacco [...] on file Legal Sex Female 2:41 PM CATERING TRUCK OPERATOR Gender Identity Not on file Sexual [...] Coronavirus/COVID-19? No / Unsure 09/12/2022 10:42 AM CATERING TRUCK OPERATOR documented as of this encounter Last Filed Vital Signs Vital Sign Reading Time Taken Comments Blood Pressure 126/56 09/13/2022 10:55 AM CATERING TRUCK OPERATOR Pulse 90 09/13/2022 10:55 AM CATERING TRUCK OPERATOR Temperature 36.6 ??C (97.8 ??F) 09/13/2022 10:[address] Respiratory Rate 16 09/13/2022 10:55 AM CATERING TRUCK OPERATOR Oxygen Saturation 99% 09/13/2022 10:55 AM CATERING TRUCK OPERATOR Inhaled Oxygen Concentration - - Weight 77.1 kg (170 lb) 09/13/2022 10:55 AM CATERING TRUCK OPERATOR Height 160 cm (5' 3 ) 09/13/2022 10:55 AM CATERING TRUCK OPERATOR Body Mass Index 30.11 09/13/2022 10:55 AM CATERING TRUCK OPERATOR documented in this encounter Miscellaneous Notes * Quality Review - Hannah Bautista - 09/13/2022 9:18 AM CST OASIS Recommendations M1021.a E86.0 Dehydration ; Onset; 09/13/2022.b C7A.8 Other malignant neuroendocrine tumors ; Onset; 07/08/2022.c 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 Check all that apply See OASIS Guidance Manualfor a complete list of relevant ICD-10 codes Documented Answer: Recommendation: 3 - None of the above Comments: No dx of DM & PVD. M1033 - Risk for Hospitalization: Which of the following signs or symptoms characterize this patient as at risk for hospitalization? Documented Answer: 10 - None of the above Recommendation: 7 - Currently taking 5 or more medications; 9 - Other risk(s) not listed in 1 - 8 Comments: Pt. has several cancers. Pt. takes more than 5 meds. TIM Arellano 09/27/2022 Chart review and recommendations completed by: Margaret??EMERITA Mann documented in this encounter Plan of Treatment Not on file documented as of this encounter Visit Diagnoses Not on filedocumented in this encounter Administered Medications Inactive Administered Medications - up to 3 most recent administrations Medication Order MAR Action Action Date Dose Rate Site 0.9 % sodium chloride ([facility] sodium chloride 0.9%) injection 10 mL, intravenous, Weekly, First dose on Lydia 09/13/22 at 1515, Indications: line careIndications:line care Given 09/13/2022 2:41 PM CATERING TRUCK OPERATOR 10 mL heparin 100 unit/mL solution 5 mL, intravenous, Weekly, First dose on Lydia 09/13/22 at 1515, Indications: Maintain Patency of Indwelling Vascular CatheterIndications:Maintain Patency of Indwelling Vascular Catheter Given 09/13/2022 2:40 PM CATERING TRUCK OPERATOR 5 mL documented in this encounter Home Health Visit - Care Plan Visit Details Visit Type -SN OASIS Start o f Care Discipline -Mcc Problems Problem Description Start Date Status Goals Interventions Safety concerns Disciplines: Mcc Safety needs related to infusion administration 09/13/2022 [...] home health visit Disciplines: SN, PT, OT, PLANNING AIDE, SENIOR LINUX SYSTEMS ENGINEER, Skilled Disciplines Monitor patient's vital signs [...] visit during episode of care Description: Home toll gate tender to measure vital signs during every home [...] infusion service Problem:Safety concerns Completed Pt and report good understanding of potential IV complications and prevention/management of same. Instruct on IV flush Description: Instruct patient/caregiver in how to perform flushing of IV line according to MD orders or protocol. Problem:Learning/Teac soco Needs - IV Therapy Completed Pt verbalizes good understanding of IV flush procedure using aseptic technique as per [facility] Infusion policy. Instruct on IV supplies Description: Instruct patient/caregiver [...] Scheduled documented in this encounter Care Teams Database Marketing Manager Relationship Specialty Start Date End Date Julio César Briseno MD PCP - General 10/01/16 Eren Cr MD Referring Physician Medical Oncology 11/25/18 Yohana Bowen MD Radiation Oncologist Radiation Oncology 11/25/18 documented as of this encounter
--- OUTSIDE RECORDS SUMMARY | 2024-06-25 22:16 | XMS_ITS | Encounter Summary ---
Author Organization [facility] Address [address] [place] [address] Phone Care Team Providers Care Route Service Manager Name Role Phone Julio César Briseno MD Primary Care Provider Eren Cr MD Unavailable [phone] Yohana Bowen MD Unavailable Encounter Details Date Type Department Care Team (Late st Contact Info) Description 08/30/2022 Orders Only [facility] Oncology [address] [place] [address] Eren Cr MD [address] [place] [address] Neuro-endocrine carcinoma (CMS/HCC) (HCC) (Primary Dx); 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); Bone metastasis (CMS/HCC) (HCC); Dehydration; CINV (chemotherapy-induced nausea and vomiting) Social History [...] on file Legal Sex Female 2:41 PM ROLLER MECHANIC Gender Identity Not on file Sexual 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
--- OUTSIDE RECORDS SUMMARY | 2024-06-25 22:16 | XMS_ITS | Encounter Summary ---
Author Organization [facility] Address [address] [place] [address] Phone Care Team Providers Care Spanish Professor Name Role Phone Julio César Briseno MD Primary Care Provider Eren Cr MD Unavailable [phone] Yohana Bowen MD Unavailable Encounter Details Date Type Department Care Team (Late st Contact Info) Description 09/06/2022 1:15 PM LATIN TEACHER Clinical Support [facility] Oncology [address] [place] [address] Social History Tobacco Use Types Packs/Day Years [...] on file Legal Sex Female 2:41 PM LATIN TEACHER Gender Identity Not on file Sexual Orientation Straight 02/19/2021 9: 29 AM CDT Occupation Industry Job Start Date Job End Date retired Not on file Not on file Not on file documented as of this encounter Plan of Treatment Not on file documented as of this encounter Visit Diagnoses Not on filedocumented in this encounter Care Teams Spanish Professor Relationship Specialty Start Date End Date Julio César Briseno MD PCP - General 10/01/16 Eren Cr MD Referring Physician Medical Oncology 11/25/18 Yohana Bowen MD Radiation Oncologist Radiation Oncology 11/25/18 documented as of this encounter
--- OUTSIDE RECORDS SUMMARY | 2024-06-25 22:16 | XMS_ITS | Encounter Summary ---
Author Organization [facility] Address [address] [place] [address] Phone Care Team Providers Care Crop Farm Workers Name Role Phone Julio César Briseno MD Primary Care Provider Eren Cr MD Unavailable [phone] Yohana Bowen MD Unavailable Encounter Details Date Type Department Care Team (Late st Contact Info) Description 09/07/2022 Orders Only [facility] Oncology [address] [place] [address] Eren Cr MD [address] [place] [address] Neuro-endocrine carcinoma (CMS/HCC) (HCC) (Primary Dx); 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); Elevated serum creatinine Social History Tobacco Use Types Packs/Day [...] on file Legal Sex Female 2:41 PM LEARNING CENTER COORDINATOR Gender Identity Not on file Sexual 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
--- OUTSIDE RECORDS SUMMARY | 2024-06-25 22:16 | XMS_ITS | Encounter Summary ---
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) Bone metastasis Procedures CT chest abdomen pelvis with contrast Eren Cr MD [address] [employer] [facility] [address] [place] [address] Phone: tel: fax: [facility] Referral ID Status Reason Start Date Expiration Date Visits Re quested Visits Authorized [id number] Closed 08/10/2022 09/09/2023 1 1 N BUILDING ENGINEER Reason for Visit * MRI/CAT/PET Scan (Routine) - Closed Specialty Diagnoses / Procedures [facility] Referred To Contact Radiology Diagnoses 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) Bone metastasis Procedures CT chest abdomen pelvis with contrast Eren Cr MD [address] [facility] [address] [place] [address] Phone: tel: fax: [facility] Referral ID Status Reason Start Date Expiration Date Visits Re quested Visits Authorized [id number] Closed 08/10/2022 09/09/2023 1 1 Encounter Details Date Type Department Care Team (Latest Contact Info) Description 09/05/2022 1:09 PM GREEN BUILDING ENGINEER - 09/05/2022 11:59 PM GREEN BUILDING ENGINEER Hospital Encounter [facility] Radiology at [facility] [address] [place] [id number] Neuroendocrine carcinoma (CMS/HCC) (HCC); 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); Bone metastasis (CMS/HCC) (HCC) Discharge Disposition: Discharge to home [...] on file Legal Sex Female 2:41 PM GREEN BUILDING ENGINEER Gender Identity Not on file Sexual [...] capsuleIndicatio ns:supplement Take 1 tablet by mouth studio couch frame builder before breakfast 07/04/2016 4 cholecalciferol (VITAMIN D-3) 2,000 unit capsule Take 1 capsule (2,000 Units total) by mouth daily 30 capsule 2 04/25/2019 3 clotrimazole-bet amethasone (LOTRISONE) cream Apply 1 Application topically daily as needed (rash) 4 coenzyme H07-dzobkjb E 100-5 mg-unit capsuleIndicatio ns:supplement Take 1 tablet by mouth studio couch frame builder before breakfast 4 diphenoxylate-at ropine (LOMOTIL) 2.5-0.025 [...] as needed for rhinitis or allergies 4 INV-[facility] cabozantinib/maris cebo (08-122/A02 1602) 20 mg tabletIndication s:cancer study Take 1 tablet (20 mg total) by mouth nightly Take on an empty stomach (no food for 2 hours before and 1 hour after each dose).?? Avoid Jas's Wort, grapefruit products and Snow Sh[place] oranges while on treatment. placed on hold 09/26/22 for covid 01/29/2022 4 levothyroxine (SYNTHROID) 88 mcg tabletIndication s:Hypothyroidism due to medication TAKE 1 TABLET (88 MCG TOTAL) BY MOUTH CORPORATE TRAVEL COUNSELOR BEFORE BREAKFAST 30 tablet 1 09/03/2022 3 [...] CT CHEST ABDOMEN PELVIS W CONTRAST Schedule URIEL, Read URIEL (Appt Today, Awaiting Results) 09/05/2022 1:54 PM GREEN BUILDING ENGINEER 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) Bone metastasis (CMS/HCC) (HCC) POCT CREATININE - DEVICE Routine 09/05/2022 1:40 PM GREEN BUILDING ENGINEER documented in this encounter Results * CT chest abdomen pelvis with contrast (09/05/2022 1:54 PM GREEN BUILDING ENGINEER) Anatomical Region Laterality Modality Body N/A Computed Tomogra phy 09/05/2022 3:23 PM GREEN BUILDING ENGINEER Impressions 09/05/2022 4:37 PM GREEN BUILDING ENGINEER 1. ??Stable hepatic lesions and peritoneal implants compatible with the patient's known neuroendocrine malignancy. 2. ??No new findings of metastatic disease. Dictated by: Mj Hayden MD The radiology attending physician has personally reviewed this study, and had reviewed and/or edited this written report and agrees with it. Electronically signed by: Valentina Muñoz M.D. 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 COMPARISON: CT 06/28/2022, 04/09/2022 FINDINGS: ?? Chest: The thyroid is small. ??No supraclavicular, axillary, or mediastinal adenopathy. ??Heart is normal in size, there is no pericardial effusion. ??Thoracic aorta and pulmonary artery are normal in caliber. There is an aberrant right subclavian artery. ??Patent central airways. ??There is no pleural effusion, consolidation or pneumothorax. ??No suspicious pulmonary nodules. Abdomen/Pelvis: Multiple (greater than 10) centrally hypoattenuating, peripherally enhancing hepatic lesions appear stable compared to prior study; for example, a lesion in segment 7 of the liver measures 1.8 x 1.6 cm, which is similar to prior study. ??No new lesions are noted. ??There are postoperative findings of cholecystectomy with bile duct reservoir effect. ??No focal pancreatic lesions. ??The spleen and adrenal glands are normal. ??Exophytic right simple renal cyst is stable compared to prior study. ??Kidneys enhance symmetrically, and there is no hydronephrosis. ??Bladder is decompressed. ?? There are postoperative findings of hysterectomy, with a metastatic implant along the right aspect of the vaginal cuff measuring 2.5 x 2.4 cm, which is unchanged from prior study. ??A 2nd metastatic implant along the right perirenal fascia at series 2 image 199 measures 1.5 x 1.1 cm, which is also unchanged from prior study. ??An associated enlarged richy-aortic lymph node at series 2 image 24 is unchanged as well. Redemonstrated postoperative findings of a diverting colostomy and right hemicolectomy with stable parastomal hernia containing fat and small bowel. ??There is no bowel obstruction, ascites, or pneumoperitoneum. ??There is mild aortoiliac atherosclerosis. ??No suspicious osseous lesions. 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 COMPARISON: CT 06/28/2022, 04/09/2022 FINDINGS: Chest: The thyroid is small. No supraclavicular, axillary, or mediastinal adenopathy. Heart is normal in size, there is no pericardial effusion. Thoracic aorta and pulmonary artery are normal in caliber. There is an aberrant right subclavian artery. Patent central airways. There is no pleural effusion, consolidation or pneumothorax. No suspicious pulmonary nodules. Abdomen/Pelvis: Multiple (greater than 10) centrally hypoattenuating, peripherally enhancing hepatic lesions appear stable compared to prior study; for example, a lesion in segment 7 of the liver measures 1.8 x 1.6 cm, which is similar to prior study. No new lesions are noted. There are postoperative findings of cholecystectomy with bile duct reservoir effect. No focal pancreatic lesions. The spleen and adrenal glands are normal. Exophytic right simple renal cyst is stable compared to prior study. Kidneys enhance symmetrically, and there is no hydronephrosis. Bladder is decompressed. There are postoperative findings of hysterectomy, with a metastatic implant along the right aspect of the vaginal cuff measuring 2.5 x 2.4 cm, which is unchanged from prior study. A 2nd metastatic implant along the right perirenal fascia at series 2 image 199 measures 1.5 x 1.1 cm, which is also unchanged from prior study. An associated enlarged richy-aortic lymph node at series 2 image 24 is unchanged as well. Redemonstrated postoperative findings of a diverting colostomy and right hemicolectomy with stable parastomal hernia containing fat and small bowel. There is no bowel obstruction, ascites, or pneumoperitoneum. There is mild aortoiliac atherosclerosis. No suspicious osseous lesions. IMPRESSION: 1. Stable hepatic lesions and peritoneal implants compatible with the patient's known neuroendocrine malignancy. 2. No new findings of metastatic disease. Dictated by: jM Hayden MD The radiology attending physician has personally reviewed this study, and had reviewed and/or edited this written report and agrees with it. Electronically signed by: Valentina Muñoz M.D. 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 documented in this encounter Administered Medications Inactive Administered Medications - up to 3 most recent administrations Medication Order MAR Action Action Date Dose Rate Site heparin 100 unit/mL injection 500 Units 500 Units (5 mL), intra-catheter, Once, On Sat09/05/22 at 1415, For 1 dose Given 09/05/2022 1:54 PM GREEN BUILDING ENGINEER 500 Units ioversoL (OPTIRAY 350) injection 76 mL 76 mL, intravenous, Once in imaging, contrast, Starting on Sat09/05/22 at 1348, For 1 dose Contrast Given 09/05/2022 1:49 PM GREEN BUILDING ENGINEER 76 mL documented in this encounter Care Teams Chemistry Professor Relationship Specialty Start Date End Date Julio César Briseno MD PCP - General 10/01/16 Eren Cr MD Referring Physician Medical Oncology 11/25/18 Yohana Bowen MD Radiation Oncologist Radiation Oncology 11/25/18 documented as of this encounter
--- OUTSIDE RECORDS SUMMARY | 2024-06-25 22:16 | XMS_ITS | Encounter Summary ---
Author Organization [facility] Address [address] [place] [address] Phone Care Team Providers Care Horticulture Superintendent Name Role Phone Julio César Briseno MD Primary Care Provider [phone] Eren Cr MD Unavailable [phone] Yohana Bowen MD Unavailable Reason for Visit * Episode Based Medications (Routine) - Closed Specialty Diagnoses / Procedures Referred By Evelyne bowman Referred To Contact Diagnoses Neuro-endocrine carcinoma (HCC) Procedures study [id number] phase III cabozantinib Eren Cr MD [address] [facility] [address] [place] [address] Phone: tel: fax: [facility] [address] [facility] Advanced Medicine 7th [place] [address] Phone: tel: Referral ID Status Reason Start Date Expiration Date Visits Re quested Visits Authorized [id number] Closed 06/21/2021 06/26/2024 1 99 Encounter Details Date Type Department Care Team (Latest Contact Info) Description 09/06/2022 3:00 PM COLLECTIONS TECHNICIAN Research [facility] Pick-Up/CTRU Agriculture Specialist [facility] Oncology [address] [place] [address] Neuro-endocrine carcinoma (CMS/HCC) (HCC) (Primary Dx) Social [...] on file Legal Sex Female 2:41 PM COLLECTIONS TECHNICIAN Gender Identity Not on file Sexual [...] Date First Ordered Date [facility] cabozantinib/pl acebo (/[id number]) tablet 20 mg 1 09/06/2022 Nursing Count Last Ordered Date First Orde red Date ONCBCN STUDY COMMUNICATION 2 1 09/06/2022 ONCBCN TREATMENT PARAMETERS 1 1 09/06/2022 RESEARCH STUDY CLARIFICATION ORDER 1 2022 Appointment Requests Count Last Ordered Date Fi rst Ordered Date ONCBCN TAKE HOME STUDY DRUG APPT 1 09/07/19 23 documented in this encounter Care Teams Horticulture Superintendent Relationship Specialty Start Date End Date Julio César Briseno MD PCP - General 10/01/16 Eren Cr MD Referring Physician Medical Oncology 11/25/18 Yohana Bowen MD Radiation Oncologist Radiation Oncology 11/25/18 documented as of this encounter
--- OUTSIDE RECORDS SUMMARY | 2024-06-25 22:16 | XMS_ITS | Encounter Summary ---
Author Organization [facility] Healthcare Address [address] [place] [address] Care Team Providers Care Cryptographic Center Specialist Name Role Phone Julio César Briseno MD Primary Care Provider [phone] Eren Cr MD Unavailable [phone] Yohana Bowen MD Unavailable Encounter Details Date Type Department Care Team (Latest Contact Info) Description 09/13/2022 1:23 PM TALENT PROGRAM MANAGER - 09/13/2022 11:59 PM TALENT PROGRAM MANAGER Hospital Encounter [address] [address] Discharge Disposition: Discharge to home or self [...] on file Legal Sex Female 2:41 PM TALENT PROGRAM MANAGER Gender Identity Not on file Sexual [...] Coronavirus/COVID-19? No / Unsure 09/12/2022 10:42 AM TALENT PROGRAM MANAGER documented as of this encounter Medications at [...] by mouth nightly 0.9 % sodium chloride ([facility] WITH [facility] sodium chloride 0.9%) injectionIndicat ions:line care Infuse 10 mL into a venous catheter once a week On saturday 4 amLODIPine (NORVASC) 5 mg tabletIndication s:hypertension Take 0.5 tablets (2.5 mg total) by mouth nightly 07/27/2022 3 ascorbic acid, vitamin C, 500 mg capsuleIndicatio ns:supplement Take 1 tablet by mouth steam finisher before breakfast 07/04/2016 4 cholecalciferol (VITAMIN D-3) 2,000 unit capsule Take 1 capsule (2,000 Units total) by mouth daily 30 capsule 2 04/25/2019 3 clotrimazole-bet amethasone (LOTRISONE) cream Apply 1 Application topically daily as needed (rash) 4 coenzyme [id number] 100-5 mg-unit capsuleIndicatio ns:supplement Take 1 tablet by mouth steam finisher before breakfast 4 diphenoxylate-at ropine (LOMOTIL) 2.5-0.025 [...] Fluids every -Heparin to flush 4 [id number] cabozantinib/maris cebo (2017-08-122/A02 1602) 20 mg tabletIndication s:cancer study Take 1 tablet (20 mg total) by mouth nightly Take on an empty stomach (no food for 2 hours before and 1 hour after each dose).?? Avoid [place]'s Wort, grapefruit products and [place] oranges while on treatment. placed on hold 09/26/22 for covid 01/29/2022 4 levothyroxine (SYNTHROID) 88 mcg tabletIndication s:Hypothyroidism due to medication TAKE 1 TABLET (88 MCG TOTAL) BY MOUTH ASSOCIATE PRODUCER BEFORE BREAKFAST 30 tablet 1 09/03/2022 3 [...] filedocumented in this encounter Care Teams Cryptographic Center Specialist Relationship Specialty Start Date End Date Julio César Briseno MD PCP - General 10/01/16 Eren Cr MD Referring Physician Medical Oncology 11/25/18 Yohana Bowen MD Radiation Oncologist Radiation Oncology 11/25/18 documented as of this encounter
--- OUTSIDE RECORDS SUMMARY | 2024-06-25 22:16 | XMS_ITS | Encounter Summary ---
Author Organization [facility] Address [address] [place] [address] Phone Care Team Providers Care Asphalt Distributor Operator Name Role Phone Julio César Briseno MD Primary Care Provider [phone] Eren Cr MD Unavailable [phone] Yohana Bowen MD Unavailable Encounter Details Date Type Department Care Team (Late st Contact Info) Description 09/12/2022 Orders Only [facility] [address] [place] [address] Eren Cr MD [address] [place] [address] Neuro-endocrine carcinoma (CMS/HCC) (HCC) (Primary Dx); 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); Bone metastasis (CMS/HCC) (HCC); Dehydration Social History Tobacco Use [...] on file Legal Sex Female 2:41 PM FRINGING MACHINE OPERATOR Gender Identity Not on file [...] neoplasm of bone and bone marrow Dehydration documented in this encounter Care Teams Asphalt Distributor Operator Relationship Specialty Start Date End Date Julio César Briseno MD PCP - General 10/01/16 Eren Cr MD Referring Physician Medical Oncology 11/25/18 Yohana Bowen MD Radiation Oncologist Radiation Oncology 11/25/18 documented as of this encounter
--- OUTSIDE RECORDS SUMMARY | 2024-06-25 22:16 | XMS_ITS | Encounter Summary ---
Author Organization 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) Bone metastasis Procedures CT chest abdomen pelvis with contrast Eren Cr MD [address] [place] [address] Phone: tel: fax: [facility] Referral ID Status Reason Start Date Expiration Date Visits Re quested Visits Authorized [id number] Closed 08/10/2022 09/09/2023 1 1 ER AND POUNDER Encounter Details Date Type Department Care Team (Late st Contact Info) Description 08/10/2022 Orders Only [facility] [address] [place] [address] Eren Cr MD [address] [place] [address] Neuroendocrine carcinoma (CMS/HCC) (HCC) (Primary Dx); 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); Bone metastasis (CMS/HCC) (HCC) Social History Tobacco Use Types Packs/Day Years Used Date Smoking Tobacco: Never Smokeless Tobacco: Never Alcohol Use Standard Drinks/Week Comments Yes 1 (1 standard drink = 0.6 oz pur e alcohol) AUDIT-C Answer Date Recorded Q1: How often do you have a drink containing alc ohol? Monthly or less 02/16/2021 Average Number of Drinks Not on file Frequency of Binge Drinking Not on file 02/05 Comments No Sex and Gender Information Value Date Recorded Sex Assigned at Not on file Legal Sex Female 2:41 PM RUBBER AND POUNDER Gender Identity Not on file Sexual Orientation Straight 02/19/2021 9: 29 AM CDT Occupation Industry Job Start Date Job End Date retired Not on file Not on file Not on file documented as of this encounter Plan of Treatment Not on file documented as of this encounter Results * CT chest abdomen pelvis with contrast (09/05/2022 1:54 PM RUBBER AND POUNDER) Anatomical Region Laterality Modality Body N/A Computed Tomogra phy 09/05/2022 3:23 PM RUBBER AND POUNDER Impressions 09/05/2022 4:37 PM RUBBER AND POUNDER 1. ??Stable hepatic lesions and peritoneal implants compatible with the patient's known neuroendocrine malignancy. 2. ??No new findings of metastatic disease. Dictated by: Mj Hayden MD The radiology attending physician has personally reviewed this study, and had reviewed and/or edited this written report and agrees with it. Electronically signed by: Valentina Muñoz M.D. 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
--- OUTSIDE RECORDS SUMMARY | 2024-06-25 22:16 | XMS_ITS | Encounter Summary ---
Author Organization [facility] Address [address] [place] [address] Phone Care Team Providers Care Forestry Foreman Name Role Phone Julio César Briseno MD Primary Care Provider [phone] Eren Cr MD Unavailable [phone] Yohana Bowen MD Unavailable Encounter Details Date Type Department Care Team (Late st Contact Info) Description 09/13/2022 Plan of Care Documentation [facility] [address] [place] [address] Social History Tobacco Use Types Packs/Day Years [...] on file Legal Sex Female 2:41 PM REGISTERED NURSING PROFESSOR Gender Identity Not on file Sexual [...] Coronavirus/COVID-19? No / Unsure 09/12/2022 10:42 AM REGISTERED NURSING PROFESSOR documented as of this encounter Miscellaneous Notes * Home Health Plan of Care - JessiPapo - 09/28/2022 1:10 PM CDT Patient has Living Will: No Patient has Advance Directive: No Patient has Durable Power of Packaging Specialist: No Code Status: Full Code * Home Health Plan of Care Certification Statement - Papo Bowen - 09/28/2022 1:10 PM CDT I certify/recertify that the above stated patient is homebound and has a need/continued need for intermittent mcfp, physical therapy and/or speech or occupational therapy services for their current diagnosis(es) as outlined in the plan of care. The patient is under my care, and I have aut horized services on this plan of care and will periodically review the plan. The patient had a [id number] encounter with Eren Cr Jr., MD on 09/06/2022 and the encounter was related to the primary reason for home health care. documented in this encounter Plan of Treatment Not on file documented as of this encounter Visit Diagnoses Not on filedocumented in this encounter Care Teams Forestry Foreman Relationship Specialty Start Date End Date Julio César Briseno MD PCP - General 10/01/16 Eren Cr MD Referring Physician Medical Oncology 11/25/18 Yohana Bowen MD Radiation Oncologist Radiation Oncology 11/25/18 documented as of this encounter
--- OUTSIDE RECORDS SUMMARY | 2024-06-25 22:16 | XMS_ITS | Encounter Summary ---
Author Organization [facility] Address [address] [place] [address] Phone Care Team Providers Care Security Compliance Engineer Name Role Phone Julio César Briseno MD Primary Care Provider [phone] Eren Cr MD Unavailable [phone] Yohana Bowen MD Unavailable Encounter Details Date Type Department Care Team (Late st Contact Info) Description 09/13/2022 Home Care Visit [facility] [address] [place] [address] Mj Lima, [place] SBAR-START OF CARE/RESUMPTION Social History Tobacco Use [...] on file Legal Sex Female 2:41 PM TELESALES REPRESENTATIVE Gender Identity Not on file Sexual [...] Coronavirus/COVID-19? No / Unsure 09/12/2022 10:42 AM TELESALES REPRESENTATIVE documented as of this encounter Plan of Treatment Not on file documented as of this encounter Visit Diagnoses Not on filedocumented in this encounter Care Teams Security Compliance Engineer Relationship Specialty Start Date End Date Julio César Briseno MD PCP - General 10/01/16 Eren Cr MD Referring Physician Medical Oncology 11/25/18 Yohana Bowen MD Radiation Oncologist Radiation Oncology 11/25/18 documented as of this encounter
--- OUTSIDE RECORDS SUMMARY | 2024-06-25 22:16 | XMS_ITS | Encounter Summary ---
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 [address] [place] [address] Neuro-endocrine carcinoma (CMS/HCC) (HCC) (Primary Dx); 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); Neuroendocrine carcinoma (CMS/HCC) (HCC); Dehydration; Hypophosphatemia Social History Tobacco [...] on file Legal Sex Female 2:41 PM DIE ATTACHER Gender Identity Not on file Sexual Orientation Straight 02/19/2021 9: 29 AM CDT Occupation Industry Job Start Date Job End Date retired Not on file Not on file Not on file documented as of this encounter Nursing Notes * Babs Stokes, RN - 08/07/2022 12:30 PM CST Oncology Nursing Note [facility] La Chung is a 71 y.o. female who presents for treatment cycle 14, day 1 of [id number] - [id number] Pills. Hydration: 1 liter NS over 2 hours. Octreotide IM given and tolerated well. Pre-treatment Nursing Assessment Nursing Assessment Appetite: Good Diarrhea: Yes (has colostomy; takes imodium) Last BM Date: 08/07/22 Existing Patients: Any falls since your last visit?: No New Patients: Any falls since your last visit?: N/A Fatigue: Occassional Mouth Sores: No Nausea/Vomiting: Yes (after tx; has prn meds) Neurological symptoms: No Pain: No Peripheral Neuropathy: No Pt states has potential to be ?: No Shortness of Breath?: Yes Lungs auscultated PRN: No Pt is on oxygen?: No Respiratory Effort Characteristics: Dyspnea exertion Skin Condition/Temp: Warm, Dry Oral Mucosa Grade: Normal (0) Abdomen: Soft Swelling: No Additional Notes: BP: 129/72 Temp: 36.3 ??C (97.3 ??F) Temp src: Temporal Pulse: 78 Resp: 16 SpO2: 96 % Weight: 77.4 kg (170 lb 9.6 oz) Treatment Patient: met treatment parameters Pre blood return: Mary Cuhng tolerated treatment well. Patient was frequently observed [...] Ambulatory Accompanied by: Self Discharged To: Home ATTACHER documented in this encounter Plan of Treatment [...] 30 mg 30 mg, intramuscular, Once, On Sat08/07/22 at 1300, For 1 dose, Refrigerate. For IM intragluteal administration only- alternate gluteal sites. Shake.Indications:Corry gnant neoplasm metastatic to liver (HCC),Neuroendocrine carcinoma (HCC) Given 08/07/2022 2:52 PM DIE ATTACHER 30 mg Right Ventrogluteal ondansetron (ZOFRAN) injection 8 mg 8 mg, intravenous, Administer over 2 Minutes, Once as needed, nausea, vomiting, Starting on Sat08/07/22 at 1253, For 1 doseIndications:Hypoph osphatemia Given 08/07/2022 1:01 PM DIE ATTACHER 8 mg sodium chloride 0.9% bolus 1,000 mL 1,000 mL, intravenous, at 500 mL/hr, Administer over 2 Hours, Once, On Sat08/07/22 at 1315, For 1 doseIndications:Dehydr ation,Neuroendocrine carcinoma (HCC) New Bag 08/07/2022 12:51 PM DIE ATTACHER 1,000 mL 500 mL/hr documented in this encounter Orders Appointment Requests Count Last Ordered Date Fi rst Ordered Date ONCBCN INFUSION APPT REQUEST 1 08/07/2022 documented in this encounter Care Teams Laborer/Key Man Relationship Specialty Start Date End Date Julio César Briseno MD PCP - General 10/01/16 Eren Cr MD Referring Physician Medical Oncology 11/25/18 Yohana Bowen MD Radiation Oncologist Radiation Oncology 11/25/18 documented as of this encounter
--- OUTSIDE RECORDS SUMMARY | 2024-06-25 22:16 | XMS_ITS | Encounter Summary ---
Author Organization [facility] Healthcare Address [address] [place] [address] Care Team Providers Care Hadoop Java Developer Name Role Phone Julio César Briseno MD Primary Care Provider [phone] Eren Cr MD Unavailable [phone] Yohana Bowen MD Unavailable Encounter Details Date Type Department Care Team (Latest Contact Info) Description 09/06/2022 1:24 PM TAPE RECORDER MECHANIC - 09/06/2022 11:59 PM [facility] Hospital Encounter [address] [address] Neuroendocrine carcinoma (CMS/HCC) (HCC); 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); Neuro-endocrine carcinoma (CMS/HCC) (HCC); Bone metastasis (CMS/HCC) (HCC); High risk medication use; Hypothyroidism due to medication Discharge Disposition: Discharge to home or self [...] on file Legal Sex Female 2:41 PM TAPE RECORDER MECHANIC Gender Identity Not on file Sexual [...] capsuleIndicatio ns:supplement Take 1 tablet by mouth plant chief before breakfast 07/04/2016 4 cholecalciferol (VITAMIN D-3) 2,000 unit capsule Take 1 capsule (2,000 Units total) by mouth daily 30 capsule 2 04/25/2019 3 clotrimazole-bet amethasone (LOTRISONE) cream Apply 1 Application topically daily as needed (rash) 4 coenzyme [id number] 100-5 mg-unit capsuleIndicatio ns:supplement Take 1 tablet by mouth plant chief before breakfast 4 diphenoxylate-at ropine (LOMOTIL) 2.5-0.025 [...] as needed for rhinitis or allergies 4 [facility] cabozantinib/maris cebo (2017-08-122/A02 1602) 20 mg tabletIndication s:cancer study Take 1 tablet (20 mg total) by mouth nightly Take on an empty stomach (no food for 2 hours before and 1 hour after each dose).?? Avoid Jas's Wort, grapefruit products and [place] oranges while on treatment. placed on hold 09/26/22 for covid 01/29/2022 4 levothyroxine (SYNTHROID) 88 mcg tabletIndication s:Hypothyroidism due to medication TAKE 1 TABLET (88 MCG TOTAL) BY MOUTH [employer]SEM[employer] BEFORE BREAKFAST 30 tablet 1 09/03/2022 3 [...] Priority Date/Time Associated Diagnosis Comments EGFR STAT 09/06/2022 1:57 PM TAPE RECORDER MECHANIC 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) DIFFERENTIAL AUTO Routine 09/06/2022 1:5 7 PM TAPE RECORDER MECHANIC 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) THYROID FUNCTION CASCADE Routine 09/06/2022 1:57 PM TAPE RECORDER MECHANIC CHROMOGRANIN A Routine 09/06/2022 1:57 PM TAPE RECORDER MECHANIC 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) CBC WITH AUTO DIFFERENTIAL Routine 09/06/2022 1:57 PM TAPE RECORDER MECHANIC 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) VITAMIN D 25 HYDROXY Routine 09/06/2022 1:57 PM TAPE RECORDER MECHANIC 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) T4, FREE Routine 09/06/2022 1:57 PM TAPE RECORDER MECHANIC PHOSPHORUS Routine 09/06/2022 1:57 PM TAPE RECORDER MECHANIC 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) MAGNESIUM STAT 09/06/2022 1:57 PM TAPE RECORDER MECHANIC Neuro-endocrine carcinoma (CMS/HCC) (HCC) LIPID PANEL Routine 09/06/2022 1:57 PM TAPE RECORDER MECHANIC 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) COMPREHENSIVE METABOLIC PANEL STAT 09/06/2022 1:57 PM TAPE RECORDER MECHANIC 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) PROTEIN / CREATININE RATIO, URINE, RANDOM STAT 09/06/2022 1:55 PM TAPE RECORDER MECHANIC Neuro-endocrine carcinoma (CMS/HCC) (HCC) documented in this encounter Results * T4, free (09/06/2022 1:57 PM TAPE RECORDER MECHANIC) Free T4 1.15 0.90 - 1.70 ng/dL [facility] Blood 09/06/2022 1:57 PM TAPE RECORDER MECHANIC 09/06/2022 5:58 PM TAPE RECORDER MECHANIC Narrative [facility] - 09/06/2022 7:09 PM TAPE RECORDER MECHANIC This test was reflexed from a TSH result. us Eren Cr MD LAB BLOOD ORDERABLES Final Re sult [facility] [place] [address] * (ABNORMAL) TSH reflex to free T4 (09/06/2022 1:57 PM TAPE RECORDER MECHANIC) TSH 4.84(H) 0.30 - 4.20 mcIUnit/mL [facility] Blood 09/06/2022 1:57 PM TAPE RECORDER MECHANIC 09/06/2022 5:54 PM TAPE RECORDER MECHANIC us Eren Cr MD LAB BLOOD ORDERABLES Final Re sult Performing Organization Address [facility] Co de Phone Number [facility] Department [place] [address] * (ABNORMAL) eGFR (09/06/2022 1:57 PM TAPE RECORDER MECHANIC) eGFR 34(L) 90 - 130 mL/min/1. 73 m2 [facility] Comment: Interpretive Data Reference Interval Normal ?>/= [...] interpretive data was last reviewed 2021. Blood 09/06/2022 1:57 PM TAPE RECORDER MECHANIC 09/06/2022 1:59 PM TAPE RECORDER MECHANIC us Eren Cr MD LAB BLOOD ORDERABLES Final Re sult Performing Organization Address City/[facility] Co de Phone Number [facility] Department [place] [address] * (ABNORMAL) Differential, auto (09/06/2022 1:57 PM TAPE RECORDER MECHANIC) Neutrophil abs 2.4 1.7 - 6.5 K/cumm [facility] Comment:Testing performed by : [facility], [address] [place] [id number] Imm gran abs 0.0 0.0 - 0.1 K/cumm [facility] Lymphocyte abs 0.7(L) 0.8 - 3.3 K/cumm [facility] Monocyte abs 0.6 0.2 - 0.8 K/cumm [facility] Eosinophil abs 0.4 0.0 - 0.5 K/cumm [facility] Basophil abs 0.0 0.0 - 0.1 K/cumm [facility] Neutrophil pct 59.1 % [facility] Comment: Interpretive Data Percent cell count reference ranges are not reported, since discordance with absolute values may lead to misinterpretation of CBC data. Current Interpretive Data was last revised on 2017. Imm gran pct 0.2 % [facility] Comment: Interpretive Data Percent cell count reference ranges are not reported, since discordance with absolute values may lead to misinterpretation of CBC data. Current Interpretive Data was last revised on 2017. Lymphocyte pct 16.1 % [facility] Comment: Interpretive Data Percent cell count reference ranges are not reported, since discordance with absolute values may lead to misinterpretation of CBC data. Current Interpretive Data was last revised on 2017. Monocyte pct 14.9 % [facility] Comment: Interpretive Data Percent cell count reference ranges are not reported, since discordance with absolute values may lead to misinterpretation of CBC data. Current Interpretive Data was last revised on 2017. Eosinophil pct 9.2 % [facility] Comment: Interpretive Data Percent cell count reference ranges are not reported, since discordance with absolute values may lead to misinterpretation of CBC data. Current Interpretive Data was last revised on 2017. Basophil pct 0.5 % [facility] Comment: Interpretive Data Percent cell count reference ranges are not reported, since discordance with absolute values may lead to misinterpretation of CBC data. Current Interpretive Data was last revised on 2017. Blood 09/06/2022 1:57 PM TAPE RECORDER MECHANIC 09/06/2022 1:59 PM TAPE RECORDER MECHANIC Eren Cr MD LAB BLOOD ORDERABLES Final Re sult Performing Organization Address [facility] Co de Phone Number [facility] [place] [address] * Magnesium (09/06/2022 1:57 PM TAPE RECORDER MECHANIC) Magnesium 1.4 1.4 - 2.5 mg/dL [facility] Comment:Testing performed by : [address] [address] Blood 09/06/2022 1:57 PM TAPE RECORDER MECHANIC 09/06/2022 1:59 PM TAPE RECORDER MECHANIC Eren Cr MD LAB BLOOD ORDERABLES Final Re sult Performing Organization Address [facility] [place] [address] * (ABNORMAL) Lipid panel (09/06/2022 1:57 PM TAPE RECORDER MECHANIC) Cholesterol 172 30 - 199 mg/dL [facility] Comment: Interpretive Data Ages < or [...] Data was last revised on 2018. Triglycerides 281(H) <=149 mg/dL [facility] Comment: Interpretive Data Ages < or = [...] on 2018. HDL 52 >=40 mg/dL [facility] Comment: Interpretive Data Ages < or = [...] was last revised on 2018. LDL, calculated 64 <=129 mg/dL [facility] Comment: Interpretive Data Ages < or = [...] was last revised on 2018. Non-HDL Cholesterol 120 mg/dL [facility] Comment: Interpretive Data Ages [...] 2018. Chol/HDL ratio 3 [facility] Blood 09/06/2022 1:57 PM TAPE RECORDER MECHANIC 09/06/2022 5:54 PM TAPE RECORDER MECHANIC us Eren Cr MD LAB BLOOD ORDERABLES Final Re sult [facility] [place] [address] * Phosphorus (09/06/2022 1:57 PM TAPE RECORDER MECHANIC) Phosphorus, pl 2.5 2.3 - 4.5 mg/dL [facility] Comment:Testing performed by : [address] [address] Blood 09/06/2022 1:57 PM TAPE RECORDER MECHANIC 09/06/2022 1:59 PM TAPE RECORDER MECHANIC Eren Cr MD LAB BLOOD ORDERABLES Final Re sult Performing Organization Address City/[facility]/ZIP Co de Phone Number [facility] [place] [address] * (ABNORMAL) Vitamin D 25 hydroxy (09/06/2022 1:57 PM TAPE RECORDER MECHANIC) Pathologist [facility] Vitamin D 25-OH 21(L) 30 - 80 ng/mL [facility] Blood 09/06/2022 1:57 PM TAPE RECORDER MECHANIC 09/06/2022 5:54 PM TAPE RECORDER MECHANIC Eren Cr MD LAB BLOOD ORDERABLES Final Re sult Performing Organization Address [facility] Co de Phone Number [facility] [place] [address] * (ABNORMAL) CBC with auto differential (09/06/2022 1:57 PM TAPE RECORDER MECHANIC) [facility] WBC 4.0 3.8 - 9.9 K/cumm [facility] Comment:Testing performed by : [address] [address] Hgb 11.3(L) 11.9 - 15.5 g/dL [facility] Comment:Testing performed by : [address] [address] Hct 33.2(L) 35.6 - 45.5 % [facility] Comment:Testing performed by : [address] [address] Plt 102(L) 150 - 400 K/cumm [facility] Comment:Testing performed by : [address] [address] MPV 10.3 9.1 - 12.3 fL [facility] RBC 3.41(L) 3.90 - 5.20 M/cumm [facility] MCV 97.4(H) 81.3 - 96.4 fL [facility] MCH 33.1 27.1 - 33.3 pg [facility] MCHC 34.0 32.3 - 35.7 g/dL [facility] RDW CV 13.8 11.1 - 14.9 % [facility] RDW SD 48.6(H) 35.7 - 48.1 fL [facility] NRBC abs 0.00 0.00 - 0.01 K/cumm [facility] Blood 09/06/2022 1:57 PM TAPE RECORDER MECHANIC 09/06/2022 1:59 PM TAPE RECORDER MECHANIC us Eren Cr MD LAB BLOOD ORDERABLES Final Re sult [facility] Department [place] [address] * (ABNORMAL) Comprehensive metabolic panel (09/06/2022 1:57 PM TAPE RECORDER MECHANIC) Pathologist [facility] Sodium 139 135 - 145 mmol/L [facility] Comment:Testing performed by : [facility], [address] [place] [address] Potassium, pl 4.4 3.3 - 4.9 mmol/L [facility] Chloride 108 97 - 110 mmol/L [facility] CO2 26 22 - 32 mmol/L [facility] Anion gap 5 2 - 15 mmol/L [facility] BUN 21 8 - 25 mg/dL [facility] Creatinine 1.59(H) 0.60 - 1.10 mg/dL [facility] Glucose 81 70 - 199 mg/dL [facility] Comment: Interpretive Data Fasting glucose >/= [...] 2022. Calcium 10.1 8.5 - 10.3 mg/dL [facility] Bilirubin, total 0.4 0.1 - 1.2 mg/dL [facility] Protein, pl 6.5 6.5 - 8.5 g/dL [facility] Albumin 4.0 3.5 - 5.0 g/dL [facility] Alk phos 65 40 - 130 Units/L [facility] ALT 24 7 - 45 Units/L [facility] AST 33 10 - 45 Units/L [facility] Blood 09/06/2022 1:57 PM TAPE RECORDER MECHANIC 09/06/2022 1:59 PM TAPE RECORDER MECHANIC us Eren Cr MD LAB BLOOD ORDERABLES Final Re sult [facility] Department [place] [address] * (ABNORMAL) Chromogranin A (09/06/2022 1:57 PM TAPE RECORDER MECHANIC) Chromogranin A 1202(H) <93 ng/mL [facility] Comment: Impaired renal or hepatic function or treatment with proton pump inhibitors may result in artifactual elevations of Chromogranin A. ADDITIONAL INFORMATION This test was developed and its performance characteristics determined by [facility] in a manner consistent with CLIA [...] a homogeneous time-resolved immunofluorescent assay manufactured by [employer] and performed on the [employer] Kryptor Compact Plus. ? Values obtained with different assay methods or kits may be different and cannot be used interchangeably. ? Test results cannot be interpreted as absolute evidence for the presence or absence of malignant disease. Test Performed by: [facility] [place] [address] [id number] Armored Cable Machine Operator: Immanuel Novak M.D. Ph.D.; CLIA# [id number] Blood 09/06/2022 1:57 PM TAPE RECORDER MECHANIC 09/06/2022 6:00 PM TAPE RECORDER MECHANIC Eren Cr MD LAB BLOOD ORDERABLES Final Re sult Performing Organization Address [facility] [place] [address] * Protein / creatinine ratio, urine, random (09/06/2022 1:55 PM TAPE RECORDER MECHANIC) Protein, ur, quant 15.9 mg/dL [facility] Comment: Interpretive Data No reference range established. Current interpretive data was last revised 2018. Creatinine Ur 229.1 mg/dL [facility] Comment: Interpretive Data No reference range established. Current interpretive data was last revised 2018. Protein/creatinin e ratio 69.4 0.0 - 180.0 mg/g CR [facility] Urine 09/06/2022 1:55 PM TAPE RECORDER MECHANIC 09/06/2022 4:03 PM TAPE RECORDER MECHANIC Eren Cr MD LAB URINE ORDERABLES Final Re sult Performing Organization Address 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
--- OUTSIDE RECORDS SUMMARY | 2024-06-25 22:16 | XMS_ITS | Encounter Summary ---
Author Organization [facility] Facility Care Team Providers Care Meeting Facilitator Name Role Phone Julio César Briseno MD Primary Care Provider [phone] Eren Cr MD Unavailable [phone] Yohana Bowen MD Unavailable Encounter Details Date Type Department Care Team (Latest Contact Info) Description 09/12/2022 Travel Social History Tobacco Use Types Packs/Day [...] on file Legal Sex Female 2:41 PM RAMP JOCKEY Gender Identity Not on file Sexual Orientation Straight 02/19/2021 9: 29 AM CDT Occupation Industry Job Start Date Job End Date retired Not on file Not on file Not on file COVID-19 Exposure Response Date Recorded In the last 10 days, have yo u been in contact with someone who was confirmed or suspected to have Coronavirus/COVID-19? No / Unsure 09/12/2022 10:42 AM RAMP JOCKEY documented as of this encounter Plan of Treatment Not on file documented as of this encounter Visit Diagnoses Not on filedocumented in this encounter Care Teams Meeting Facilitator Relationship Specialty Start Date End Date Julio César Briseno MD PCP - General 10/01/16 Eren Cr MD Referring Physician Medical Oncology 11/25/18 Yohana Bowen MD Radiation Oncologist Radiation Oncology 11/25/18 documented as of this encounter
--- OUTSIDE RECORDS SUMMARY | 2024-06-25 22:16 | XMS_ITS | Encounter Summary ---
Author Organization [facility] [employer] Address [address] [place] [address] Phone Care Team Providers Care Food Clerk Name Role Phone Julio César Briseno MD Primary Care Provider [phone] Eren Cr MD Unavailable [phone] Yohana Bowen MD Unavailable Encounter Details Date Type Department Care Team (Late st Contact Info) Description 09/06/2022 3:00 PM HOME AND FAMILY LIVING PROFESSOR Infusion [facility] Oncology [address] [place] [address] Neuro-endocrine carcinoma (CMS/HCC) (HCC) (Primary Dx); 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); Bone metastasis (CMS/HCC) (HCC); Dehydration; Neuroendocrine carcinoma (CMS/HCC) (HCC); Hypophosphatemia Social History Tobacco Use Types [...] file Legal Sex Female 2:41 PM HOME AND FAMILY LIVING PROFESSOR Gender Identity Not on file Sexual Orientation Straight 02/19/2021 9: 29 AM CDT Occupation Industry Job Start Date Job End Date retired Not on file Not on file Not on file documented as of this encounter Nursing Notes * Vivian [place] RN - 09/06/2022 3:00 PM CST Oncology Nursing Note [facility] La Chung is a 71 y.o. female who presents for treatment 1 L Nacl/ 90 min, Octreotide, and Xgeva. Pre-treatment Nursing Assessment Nursing Assessment Appetite: Good Diarrhea: Yes (imodium prn,) Constipation: No Last BM Date: 09/06/22 Existing Patients: Any falls since your last visit?: No Fatigue: Occassional Mouth Sores: No Nausea/Vomiting: Yes (intermittent, unknown cause) Vision: Other: (comment) (peripheral vision limited, dark, R side mostly) Pain: No Peripheral Neuropathy: No Shortness of Breath?: Yes (MARTINEZ) Swelling: No BP: 127/74 Temp: 36.6 ??C (97.8 ??F) Temp src: Oral Pulse: 90 Resp: 18 SpO2: 99 % Weight: 77.6 kg (171 lb) Treatment Patient: met treatment parameters Pre [...] Ambulatory Accompanied by: Self Discharged To: Home AND FAMILY LIVING PROFESSOR documented in this encounter Plan of Treatment Not on file documented as of this encounter Visit Diagnoses Diagnosis Neuro-endocrine carcinoma (HCC)- Primary Other malignant neoplasm of unspecified site 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) Bone metastasis Secondary malignant neoplasm of bone and bone marrow Dehydration Neuroendocrine carcinoma (HCC) Other malignant neoplasm of unspecified site Hypophosphatemia Disorders of phosphorus metabolism documented in this encounter Administered Medications Inactive Administered Medications - up to 3 most recent administrations Medication Order MAR Action Action Date Dose Rate Site sodium chloride 0.9% bolus 1,000 mL 1,000 mL, intravenous, at 500 mL/hr, Administer over 2 Hours, Once, On Lydia 09/06/22 at 1600, For 1 doseIndications:Hypophosph atemia Rate/Dose Change 09/06/2022 3:43 PM HOME AND FAMILY LIVING PROFESSOR 700 mL/hr New Bag 09/06/2022 3:29 PM HOME AND FAMILY LIVING PROFESSOR 1,000 mL 500 mL/hr documented in this encounter Orders Medications Ordered That Brett ht Not Have Been Administered Count Last Ordered Date First Ordered Date denosumab (XGEVA) subcutaneo us syringe 120 mg 1 09/06/2022 octreotide LAR (SandoSTATIN LAR) extended release intramuscular injection 30 mg 1 09/06/2022 ondansetron (ZOFRAN) injection 8 mg 1 09/06 Nursing Count Last Ordered Date First Orde red Date ONCBCN NURSING COMMUNICATION [id number] 09/06 ONCBCN NURSING COMMUNICATION [id number] 1 0 09/06/2022 PHYSICIAN COMMUNICATION ORDER 1 09/06/2022 Appointment Requests Count Last Ordered Date Fi rst Ordered Date ONCBCN INFUSION APPT REQUEST 1 09/06/2022 documented in this encounter Care Teams Food Clerk Relationship Specialty Start Date End Date Julio César Briseno MD PCP - General 10/01/16 Eren Cr MD Referring Physician Medical Oncology 11/25/18 Yohana Bowen MD Radiation Oncologist Radiation Oncology 11/25/18 documented as of this encounter
--- OUTSIDE RECORDS SUMMARY | 2024-06-25 22:16 | XMS_ITS | Encounter Summary ---
Author Organization [facility] Healthcare Address [address] [place] [address] Care Team Providers Care Ager Tender Name Role Phone Julio César Briseno MD Primary Care Provider [phone] Eren Cr MD Unavailable [phone] Yohana Bowen MD Unavailable Encounter Details Date Type Department Care Team (Latest Contact Info) Description 08/16/2022 1:17 PM POLICEWOMAN - 08/16/2022 11:59 PM POLICEWOMAN Hospital Encounter [facility] [address] [place] [address] Eren Cr MD [facility] [address] [place], [place] [id number] Neuro-endocrine carcinoma (CMS/HCC) (HCC) (Primary Dx); 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); Bone metastasis (CMS/HCC) (HCC); Dehydration; Neuroendocrine carcinoma (CMS/HCC) (HCC) Discharge Disposition: Discharge to home [...] on file Legal Sex Female 2:41 PM POLICEWOMAN Gender Identity Not on file Sexual Orientation Straight 02/19/2021 9: 29 AM CDT Occupation Industry Job Start Date Job End Date retired Not on file Not on file Not on file documented as of this encounter Last Filed Vital Signs Vital Sign Reading Time Taken Comments Blood Pressure 134/66 08/16/2022 1:20 PM POLICEWOMAN Pulse 103 08/16/2022 1:20 PM POLICEWOMAN Temperature 36.3 ??C (97.3 ??F) 08/16/2022 1:20 PM CS T Respiratory Rate 20 08/16/2022 1:20 PM POLICEWOMAN Oxygen Saturation 100% 08/16/2022 1:20 PM POLICEWOMAN Inhaled Oxygen Concentration - - Weight - [...] capsuleIndicatio ns:supplement Take 1 tablet by mouth devulcanizer loader before breakfast 07/04/2016 4 cholecalciferol (VITAMIN D-3) 2,000 unit capsule Take 1 capsule (2,000 Units total) by mouth daily 30 capsule 2 04/25/2019 3 clotrimazole-bet amethasone (LOTRISONE) cream Apply 1 Application topically daily as needed (rash) 4 coenzyme [id number] 100-5 mg-unit capsuleIndicatio ns:supplement Take 1 tablet by mouth devulcanizer loader before breakfast 4 diphenoxylate-at ropine (LOMOTIL) 2.5-0.025 [...] rhinitis or allergies 4 [id number] cabozantinib/maris cebo (2017-08-122/A02 1602) 20 mg tabletIndication s:cancer study Take 1 tablet (20 mg total) by mouth nightly Take on an empty stomach (no food for 2 hours before and 1 hour after each dose).?? Avoid Jas's Wort, grapefruit products and [place] oranges while on treatment. placed on hold 09/26/22 for covid 01/29/2022 4 levothyroxine (SYNTHROID) 88 mcg tabletIndication s:Hypothyroidism due to medication TAKE 1 TABLET (88 MCG TOTAL) BY MOUTH CARTON COUNTER FEEDER BEFORE BREAKFAST 30 tablet 1 08/08/2022 3 LORazepam (ATIVAN) 0.5 mg tabletIndication s:MRI [...] hours as needed for nausea or vomiting 20 tablet 3 08/05/2019 3 oxyCODONE (ROXICODONE) 5 mg immediate release [...] documented in this encounter Nursing Notes * Elissa Lopez RN - 08/16/2022 1:30 PM CST PAtient arrived to the [facility] for hydration. VSS> 1 L NS given via PIV. PAC no blood return. NC aware. Alteplase instilled and PAC deaccessed. Discharged home ambulatory in stable condition. CEWOMAN documented in this encounter Plan of Treatment [...] Action Action Date Dose Rate Site alteplase (CATHFLO) 1 mg/mL syringe (premix) 2 mg 2 mg, intra-catheter, As needed, other, occluded catheter, Starting on Lydia 08/16/22 at 1421, Dose = 2 mg per lumen. May repeat if patency not achieved after 2 hours. Call provider if the lumen is still occluded after 2 unsuccessful instillation attempts . Refrigerate, Indications: Occluded Arteriovenous CannulaIndications:Occluded Arteriovenous Cannula Given 08/16/2022 3:06 PM POLICEWOMAN 2 mg sodium chloride 0.9% 0.9% infusion - ADS Override Pull Starting on Lydia 08/16/22 at 1325, For 1 dose, Created by cabinet override sodium chloride 0.9% bolus 1,000 mL 1,000 mL, intravenous, at 500 mL/hr, Administer over 2 Hours, Once, On Lydia 08/16/22 at 1355, For 1 doseIndications:Dehydration,N euroendocrine carcinoma (HCC) New Bag 08/16/2022 2:02 PM POLICEWOMAN 1,000 mL 500 mL/hr documented in this encounter Orders Medications Ordered That Brett ht Not Have Been Administered Count Last Ordered Date First Ordered Date heparin 10 unit/mL flush 30 Units 1 023 heparin 100 unit/mL injection 500 Units 1 0 08/16/2022 sodium chloride 0.9% bolus 1,000 mL 1 08/16 sodium chloride 0.9% flush 10 mL 1 08/16/19 23 Nursing Count Last Ordered Date First Orde red Date CENTRAL LINE DRESSING 1 08/16/2022 Appointment Requests Count Last Ordered Date Fi rst Ordered Date ONCBCN INFUSION APPT REQUEST 1 08/16/2022 documented in this encounter Care Teams Ager Tender Relationship Specialty Start Date End Date Julio César Briseno MD PCP - General 10/01/16 Eren Cr MD Referring Physician Medical Oncology 11/25/18 Yohana Bowen MD Radiation Oncologist Radiation Oncology 11/25/18 documented as of this encounter
--- OUTSIDE RECORDS SUMMARY | 2024-06-25 22:16 | XMS_ITS | Encounter Summary ---
Author Organization [facility] Address [address] [place] [address] Phone Care Team Providers Care Manager Of Health Name Role Phone Julio César Briseno MD Primary Care Provider Eren Cr MD Unavailable [phone] Yohana Bowen MD Unavailable Encounter Details Date Type Department Care Team (Late st Contact Info) Description 08/17/2022 Orders Only [facility] [address] [place] [address] Eren Cr MD [address] [place], [place] [id number] CINV (chemotherapy-induced nausea and vomiting) (Primary Dx) Social History Tobacco Use Types [...] on file Legal Sex Female 2:41 PM FUR REPAIRER Gender Identity Not on file Sexual [...] or vomiting 30 tablet 3 08/17/2022 3 documented in this encounter Plan of Treatment Not on file documented as of this encounter Visit Diagnoses Diagnosis CINV (chemotherapy-induced nausea and vomiting)- Primary documented in this encounter Discontinued Medications Medication Sig Discontinue Reason Start Date End Da te ondansetron (ZOFRAN) 8 mg tabletIndications:Preve ntion of Radiation-Induced Nausea and Vomiting Take 1 tablet (8 mg total) by mouth every 8 (eight) hours as needed for nausea or vomiting Reorder 08/05/2019 08/17/2022 documented as of this encounter Care Teams Manager Of Health Relationship Specialty Start Date End Date Julio César Briseno MD PCP - General 10/01/16 Eren Cr MD Referring Physician Medical Oncology 11/25/18 Yohana Bowen MD Radiation Oncologist Radiation Oncology 11/25/18 documented as of this encounter
--- OUTSIDE RECORDS SUMMARY | 2024-06-25 22:16 | XMS_ITS | Encounter Summary ---
Author Organization [facility] Address [address] [place] [address] Phone Care Team Providers Care Tubular Splitting Machine Tender Name Role Phone Julio César Briseno MD Primary Care Provider Eren Cr MD Unavailable [phone] Yohana Bowen MD Unavailable Encounter Details Date Type Department Care Team (Late st Contact Info) Description 09/06/2022 Orders Only [facility] On[facility] [address] [facility] [address] Eren Cr MD [address] [place] [address] Social History Tobacco Use Types [...] on file Legal Sex Female 2:41 PM YARN WASHER Gender Identity Not on file Sexual Orientation Straight 02/19/2021 9: 29 AM CDT Occupation Industry Job Start Date Job End Date retired Not on file Not on file Not on file documented as of this encounter Plan of Treatment Not on file documented as of this encounter Visit Diagnoses Not on filedocumented in this encounter Care Teams Tubular Splitting Machine Tender Relationship Specialty Start Date End Date Julio César Briseno MD PCP - General 10/01/16 Eren Cr MD Referring Physician Medical Oncology 11/25/18 Yohana Bowen MD Radiation Oncologist Radiation Oncology 11/25/18 documented as of this encounter
--- OUTSIDE RECORDS SUMMARY | 2024-06-25 22:16 | XMS_ITS | Encounter Summary ---
Author Organization [facility] Address [address] [place] [address] Phone Care Team Providers Care Clerk Cashier Name Role Phone Julio César Briseno MD Primary Care Provider [phone] Eren Cr MD Unavailable [phone] Yohana Bowen MD Unavailable Reason for Visit * Reason Onset Date Comments home infusion 09/14/2022 Encounter Details Date Type Department Care Team (Late st Contact Info) Description 09/14/2022 Telephone [facility] Oncology [address] [place] [address] Eren Cr MD [address] [place], [place] [id number] home infusion Social History Tobacco Use Types Packs/Day Years [...] on file Legal Sex Female 2:41 PM MUSIC TYPOGRAPHER Gender Identity Not on file Sexual Orientation Straight 02/19/2021 9: 29 AM CDT Occupation Industry Job Start Date Job End Date retired Not on file Not on file Not on file COVID-19 Exposure Response Date Recorded In the last 10 days, have yo u been in contact with someone who was confirmed or suspected to have Coronavirus/COVID-19? No / Unsure 09/12/2022 10:42 AM MUSIC TYPOGRAPHER documented as of this encounter Miscellaneous Notes * Telephone Encounter - Sola Heredia - 09/14/2022 10:15 AM CST Received call from IRVING Barker, home infusion requesting order for okay to teach patient/spouse how todisconnect IVF and deaccess and flush central line PAC following infusion of IVF. Verbal order given to teach patient and spouse disconnect and flush. C TYPOGRAPHER documented in this encounter Plan of Treatment Not on file documented as of this encounter Visit Diagnoses Not on filedocumented in this encounter Care Teams Clerk Cashier Relationship Specialty Start Date End Date Julio César Briseno MD PCP - General 10/01/16 Eren Cr MD Referring Physician Medical Oncology 11/25/18 Yohana Bowen MD Radiation Oncologist Radiation Oncology 11/25/18 documented as of this encounter
--- OUTSIDE RECORDS SUMMARY | 2024-06-25 22:16 | XMS_ITS | Encounter Summary ---
Author Organization [facility] Address [address] [place] [address] Phone Care Team Providers Care Real Estate Professor Name Role Phone Julio César Briseno MD Primary Care Provider [phone] Eren Cr MD Unavailable [phone] Yohana Bowen MD Unavailable Encounter Details Date Type Department Care Team (Late st Contact Info) Description 09/12/2022 Orders Only [facility] Scheduling [address] [place] [address] Jose Ayers, Dylan Social History Tobacco Use [...] on file Legal Sex Female 2:41 PM MEDICAL RECORD RETRIEVAL SPECIALIST Gender Identity Not on file Sexual [...] Coronavirus/COVID-19? No / Unsure 09/12/2022 10:42 AM MEDICAL RECORD RETRIEVAL SPECIALIST documented as of this encounter Progress Notes * Jose Ayers RPh - 09/12/2022 1:08 PM CST FOC: Dr. Eren Cr/ Moe Ayers PharmD Maintain IV access Port with 10ml normal saline and 5ml heparin 500units/5ml for patency per established protocol. Infuse 1000ml of 0.9% Sodium Chloride solution once weekly via rate flow tubing over 2-4 hours at 250-500 ml/hour. Labs: None ordered at this time FDC visit 1 to 2 times per week for 9 weeks for patient assessment, teaching, and IV catheter care. 9 PRN visits for additional teaching, line care, labs or other symptom management. CAL RECORD RETRIEVAL SPECIALIST documented in this encounter Plan of Treatment Not on file documented as of this encounter Visit Diagnoses Not on filedocumented in this encounter Care Teams Real Estate Professor Relationship Specialty Start Date End Date Julio César Briseno MD PCP - General 10/01/16 Eren Cr MD Referring Physician Medical Oncology 11/25/18 Yohana Bowen MD Radiation Oncologist Radiation Oncology 11/25/18 documented as of this encounter
--- OUTSIDE RECORDS SUMMARY | 2024-06-25 22:16 | XMS_ITS | Encounter Summary ---
Author Organization [facility] Address [address] [place] [address] Phone Care Team Providers Care Centrifugal Station Operator Name Role Phone Julio César Briseno MD Primary Care Provider [phone] Eren Wu MD Unavailable [phone] Yohana Bowen MD Unavailable Reason for Visit * Episode Based Medications (Routine) - Authorized Specialty Diagnoses / Procedures Referred By Evelyne t Referred To Contact Oncology Diagnoses Neuroendocrine carcinoma (HCC) Malignant neoplasm metastatic to liver (HCC) Procedures [place] OCTREOTIDE INJECTION, DEPOT Octreotide 28 Day Cycles - Carcinoid Eren Wu MD [address] [facility] [address] [place] [address] Phone: tel: fax: [facility] [address] [address] Phone: tel: fax: Referral ID Status Reason Start Date Expiration Date V isits Requested Visits Authorized [id number] Authorized 11/28/2017 02/05/2025 1 150 Encounter Details Date Type Department Care Team (Late st Contact Info) Description 09/06/2022 1:45 PM ICE CREAM FREEZER Office Visit [facility] Oncology [address] [place] [address] Eren Wu MD [address] [facility] [address] [place] [address] Neuro-endocrine carcinoma (CMS/HCC) (HCC) (Primary Dx); Bone metastasis (CMS/HCC) (HCC); 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); Neuroendocrine carcinoma (CMS/HCC) (HCC); High risk medication use; Hypothyroidism due to medication; Stage 3b chronic kidney disease (HCC) Social [...] on file Legal Sex Female 2:41 PM ICE CREAM FREEZER Gender Identity Not on file Sexual Orientation Straight 02/19/2021 9: 29 AM CDT Occupation Industry Job Start Date Job End Date retired Not on file Not on file Not on file documented as of this encounter Last Filed Vital Signs Vital Sign Reading Time Taken Comments Blood Pressure 127/74 09/06/2022 2:08 PM ICE CREAM FREEZER Pulse 90 09/06/2022 2:08 PM ICE CREAM FREEZER Temperature 36.6 ??C (97.8 ??F) 09/06/2022 2:08 PM CS T Respiratory Rate 18 09/06/2022 2:08 PM ICE CREAM FREEZER Oxygen Saturation 99% 09/06/2022 2:08 PM ICE CREAM FREEZER Inhaled Oxygen Concentration - - Weight 77.6 kg (171 lb) 09/06/2022 2:08 PM ICE CREAM FREEZER Height - - Body Mass Index 30.29 04/09/2022 7:02 PM CDT documented in this encounter Progress Notes * Magali Morales NP - 09/06/2022 1:45 PM CST Images from the original note were not included. MEDICAL ONCOLOGY OUTPATIENT ROV NOTE DATE OF VISIT: 09/06/2022 DIAGNOSIS: well differentiated neuroendocrine tumor of ileum [...] 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) INTERVAL HISTORY: La Chung is a 71 y.o. 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 She is accompanied by her daughter today. She continues on 20 mg cabozantinib/placebo daily on study and appears to be tolerating this well. She is going on vacation 11/23-12/04/2022. Today she reports feeling well without new or changing symptoms or concerns. She notes vision changes for the past 5 months with occasional difficulty reading words; no acute change. She admits that she hasn't been to an eye doctor in at least 2 years. She denies any headaches, seizures or other [...] PHYSICAL EXAM: ECOG PS: 1 VITALS: BP 127/74 (BP Location: Left arm) Pulse 90 Temp 36.6 ??C (97.8 ??F) (Oral) Resp 18 Wt 77.6 kg (171 lb) SpO2 99% BMI 30.29 kg/m?? GEN: Calm, conversant, well-appearing [...] No rashes over exposed skin. NEURO: A&Ox4, occupational therapy assist grossly intact by conversation, moving all extremities [...] aredisplayed. Labs - Hematology Latest Ref Range 06/14/22 07/12/22 08/07/22 09/06/22 WBC 3.8 - 9.9 K/cumm 3.3 (A) 3.3 (A) 3.4 (A) 4.0 Total Hb, POC 11.9 - 15.5 g/dL 11.4 (A) 12.1 11.9 11.3 (A) Hct 35.6 - 45.5 % 34.3 (A) 36.0 35.7 33.2 (A) Plt 150 - 400 K/cumm 107 (A) 96 (A) 100 (A) 102 (A) Neutrophil abs 1.7 - 6.5 K/cumm 2.3 2.0 2.1 2.4 Lymphocytes, abs 0.8 - 3.3 K/cumm 0.6 (A) 0.5 (A) 0.7 (A) 0.7 (A) (A) Abnormal value Comments are available for some flowsheets but are not being displayed. Chem/LFT Lab History Some values may be hidden. Unless noted otherwise, only the newest values recorded on each date aredisplayed. Labs-Chem/LFT Latest Ref Range 07/12/22 08/07/22 09/05/22 09/06/22 Sodium 135 - 145 mmol/L 140 141 139 Creatinine 0.60 - 1.10 mg/dL 1.11 (A) 1.46 (A) 1.59 (A) Bilirubin, total 0.1 - 1.2 mg/dL 0.6 0.6 0.4 AST 10 - 45 Units/L 34 34 33 ALT 7 - 45 Units/L 25 24 24 CrCl- Actual Body Weight (Cockcroft-Gault) 55.2 41.9 68 38.6 Some values recorded on this date have been omitted. Some abnormal values recorded on this date have been omitted. (A) Abnormal value Comments are available for some flowsheets but are not being displayed. Tumor Marker History Some values may be hidden. Unless noted otherwise, only the newest values recorded on each date aredisplayed. Tumor Markers Latest Ref Range 04/19/22 06/14/22 07/12/22 08/07/22 Chromogranin A <93 ng/mL 1141 (A) 1093 (A) 1006 (A) 1094 (A) (A) Abnormal value Comments are available [...] 1. Metastatic neuroendocrine tumor with metastases -We reviewed her scans done showing stable disease -She continues on Octreotide LAR 30 mg; due for injection today. - I reviewed her labs today and they are adequate to proceed with cycle 15 of CABINET study. Will continue on 20 mg dosing of cabozantinib/placebo. She is agreeable to proceed with treatment. - Chromogranin A 1094 on 08/07/22 -She will return for follow up in 4 weeks. - Scans to be per trial protocol in 3 months 2. Bone metastases: - on Xgeva. Phos 2.5 today; Ca 10.1 and Creatinine 1.59 -last denosumab 07/12/2022 3. Diarrhea - prn immodium and lomotil 4. Hypothyroidism with TSH elevated - continue levothyroxine at 88 mcg daily - Recheck TSH today 5. Vitamin D insufficiency/Deficiency: - continue Vitamin D 50 000 international units weekly -recheck vitamin D today 6. Vision change - ophthalmology evaluation - Consider brain imaging for new/persistent symptoms and/or no cause found by ophthalmology. 7. Renal function - eGFR 34 - No UTI signs/symptoms - Refer to nephrology All of her and questions were answered to their satisfaction and they verbalized understanding. Jump to the Problem List Disease Status Documentation for mCODE Neoplastic Disease Neuroendocrine carcinoma (CMS/HCC) (HCC) Cancer Disease Assessment for mCODE Date of diagnosis: 10/03/15 Disease status: stable Reason for disease status: imaging, physical exam, symptoms, lab results Date of cancer disease status assessment: 09/06/22 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) Cancer Disease Assessment for mCODE Date of diagnosis: 10/03/15 Disease status: not evaluated Date of cancer disease status assessment: 06/14/22 Neuro-endocrine carcinoma (CMS/HCC) (HCC) Bone metastasis (CMS/HCC) (HCC) H/O actinic keratosis Neuroendocrine tumor Cancer Disease Assessment for mCODE Date of diagnosis: 10/03/15 Disease status: stable Reason for disease status: imaging Date of cancer disease status assessment: 07/12/22 Cancer Treatment Plan Change for ICARE data: No change in treatment plan Cosigned by Eren Wu Jr., MD at 09/06/2022 5:01 PM ICE CREAM FREEZER CREAM FREEZER CREAM FREEZER CREAM FREEZER documented in this encounter Miscellaneous Notes * Addendum Note - Magali Morales NP - 09/06/2022 1:45 PM CSTAddended by: MAGALI MORALES on: 09/06/2022 04:28 PM Modules accepted: Orders CREAM FREEZER * Addendum Note - Eren Wu Jr., MD - 09/06/2022 1:45 PM CSTAddended by: EREN WU on: 09/06/2022 04:31 PM Modules accepted: Orders CREAM FREEZER documented in this encounter Plan of Treatment Not on file documented as of this encounter Visit Diagnoses Diagnosis Neuro-endocrine carcinoma (HCC)- Primary Other malignant neoplasm of unspecified site Bone metastasis Secondary malignant 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) Neuroendocrine carcinoma (HCC) Other malignant neoplasm of unspecified site High risk medication use Hypothyroidism due to medication Stage 3b chronic kidney disease (HCC) documented in this encounter Historical Medications * This list may reflect changes made after this encounter. amLODIPine (NORVASC) 5 mg tabletIndications :hypertension Take 0.5 tablets (2.5 mg total) by mouth nightly 07/27/2022 06/11/2023 added in this encounter Orders Appointment Requests Count Last Ordered Date Fi rst Ordered Date ONCBCN CLINIC APPOINTMENT REQUEST 1 023 documented in this encounter Care Teams Centrifugal Station Operator Relationship Specialty Start Date End Date Julio César Briseno MD PCP - General 10/01/16 Eren Wu MD Referring Physician Medical Oncology 11/25/18 Yohana Bowen MD Radiation Oncologist Radiation Oncology 11/25/18 documented as of this encounter
--- OUTSIDE RECORDS SUMMARY | 2024-06-25 22:16 | XMS_ITS | Encounter Summary ---
Author Organization [facility] Address [address] [place] [address] Phone Care Team Providers Care Rivet Hammer Machine Operator Name Role Phone Julio César Briseno MD Primary Care Provider [phone] Eren Cr MD Unavailable [phone] Yohana Bowen MD Unavailable Encounter Details Date Type Department Care Team (Late st Contact Info) Description 09/12/2022 Orders Only [facility] Oncology [address] [place] [address] Eren Cr MD [address] [place] [address] Neuro-endocrine carcinoma (CMS/HCC) (HCC) (Primary Dx); 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); Neuroendocrine carcinoma (CMS/HCC) (HCC) Social History [...] on file Legal Sex Female 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
--- OUTSIDE RECORDS SUMMARY | 2024-06-25 22:16 | XMS_ITS | Encounter Summary ---
Author Organization [facility] Home Care Serv[facility] es Address [address] [place] [address] Phone Care Team Providers Care [facility] Pricing Consultant Name Role Phone Julio César Briseno MD Primary Care Provider [phone] Eren Cr MD Unavailable [phone] Yohana Bowen MD Unavailable Reason for Visit * Reason Comments Dehydration Encounter Details Date Type Department Care Team (Late st Contact Info) Description 09/14/2022 12:30 PM ENDO TECH Home Care Visit [facility] [address] [place] [id number] Sherlyn Orozco RN SN HOME VISIT Social [...] on file Legal Sex Female 2:41 PM ENDO TECH Gender Identity Not on file Sexual Orientation Straight 02/19/2021 9: 29 AM CDT Occupation Industry Job Start Date Job End Date retired Not on file Not on file Not on file COVID-19 Exposure Response Date Recorded In the last 10 days, have gus engel been in contact with someone who was confirmed or suspected to have Coronavirus/COVID-19? No / Unsure 09/12/2022 10:42 AM ENDO TECH documented as of this encounter Last Filed Vital Signs Vital Sign Reading Time Taken Comments Blood Pressure 142/82 09/14/2022 3:17 PM ENDO TECH Pulse 69 09/14/2022 3:17 PM ENDO TECH Temperature 35.9 ??C (96.6 ??F) 09/14/2022 3:17 PM CS T Respiratory Rate 17 09/14/2022 3:17 PM ENDO TECH Oxygen Saturation 98% 09/14/2022 3:17 PM ENDO TECH Inhaled Oxygen Concentration - - Weight - - Height - - Body Mass Index - - documented in this encounter Miscellaneous Notes * Home Health Plan for Next Visit - Sherlyn Orozco RN - 09/14/2022 2:00 PM CST Reason for today's visit asessment, instruction, port access, vitals Discuss plan of care with pt verb good understanding Discharge planning indef Plan for next visit weekly assessment, instruction, vitals, line care documented in this encounter Plan of Treatment Not on file documented as of this encounter Visit Diagnoses Not on filedocumented in this encounter Administered Medications Inactive Administered Medications - up to 3 most recent administrations Medication Order MAR Action Action Date Dose Rate Site 0.9 % sodium chloride ([facility] sodium chloride 0.9%) injection 10 mL, intravenous, Weekly, First dose on Sat09/17/22 at 1515, Indications: line careIndications:line care Given 09/14/2022 2:00 PM ENDO TECH 10 mL heparin 100 unit/mL solution 5 mL, intravenous, Weekly, First dose on Sat09/17/22 at 1515, Indications: Maintain Patency of Indwelling Vascular CatheterIndications:Maintain Patency of Indwelling Vascular Catheter Given 09/14/2022 2:00 PM ENDO TECH 5 mL sodium chloride 0.9 % solution 1,000 mL, intravenous, Weekly, First dose on Sat09/17/22 at 1515, Patient to infuse 1000mL of Normal Saline via CADD Coreas pump set at 300mL/Hr once weekly. Given 09/14/2022 2:00 PM ENDO TECH 1,000 mL documented in this encounter Home Health Visit - Care Plan Visit Details Visit Type -SN Home Visit Discipline -Senior Care Problems Problem Description Start Date Status Goals Interventions Safety concerns Disciplines: Senior Care Safety needs related to infusion administration 09/13/2022 Active - 1 problem intervention scheduled/documen omar in this visit Learning/Teachin g Needs - IV Therapy Disciplines: Senior Care Teaching and learning needs for performing home IV therapy 09/13/2022 Active - 6 problem interventions scheduled/documen omar in this visit Homebound Status Disciplines: Skilled Disciplines Patient's homebound status 09/13/2022 Active 1 goal linked to scheduled/docume nted intervention 1 goal intervention scheduled/documen omar in this visit Monitor patient's vital signs every home health visit Disciplines: SN, PT, OT, DREDGE PIPEMAN, AUTOMATIC BOW MAKER MACHINE TENDER, Skilled Disciplines Monitor patient's vital signs every [...] and infusion service Problem:Safety concerns Scheduled IV Access Care/Maintenance Description: Skilled Nurse [...] Problem:Learning/Teac soco Needs - IV Therapy Completed RN completed sterile prep to insertion site with chlorhexidine x 30 seconds. allow to dry. access with 20g 1 inch gripper needle. assessed for blood return. secured with steri strips and cover with occlusive dressing. clave and swab cap placed. flused with ns and heparin. Instruct on IV supplies Description: Instruct patient/caregiver [...] for deficient fluid volume Goal:Maintain Hydration Completed Pt verb good understanding of fluid admin through port to prevent dehydration Educate to prevent dehydration Description: Instruct per [...] Scheduled documented in this encounter Care Teams Healthcare [facility] Pricing Consultant Relationship Specialty Start Date End Date Julio César Briseno MD PCP - General 10/01/16 Eren Cr MD Referring Physician Medical Oncology 11/25/18 Yohana Bowen MD Radiation Oncologist Radiation Oncology 11/25/18 documented as of this encounter
--- OUTSIDE RECORDS SUMMARY | 2024-06-25 22:16 | XMS_ITS | Encounter Summary ---
Author Organization [facility] Healthcare Address [address] [place] [address] Care Team Providers Care Sole Splitter Name Role Phone Julio César Briseno MD Primary Care Provider [phone] Eren Cr MD Unavailable [phone] Yohana Bowen MD Unavailable Encounter Details Date Type Department Care Team (Latest Contact Info) Description 08/30/2022 12:15 PM LINUX SYSTEM 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 - 08/30/2022 11:59 PM [facility] Hospital Encounter [facility] [address] [place] [id number] Neuro-endocrine carcinoma (CMS/HCC) (HCC) (Primary Dx); 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); Bone metastasis (CMS/HCC) (HCC); Dehydration; Hypophosphatemia Discharge Disposition: Discharge to home or [...] on file Legal Sex Female 2:41 PM LINUX SYSTEM 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 Gender Identity Not on file Sexual [...] Coronavirus/COVID-19? No / Unsure 09/12/2022 10:42 AM LINUX SYSTEM 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 documented as of this encounter Last Filed Vital Signs Vital Sign Reading Time Taken Comments Blood Pressure 110/63 08/30/2022 12:21 PM LINUX SYSTEM 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 Pulse 100 08/30/2022 12:21 PM LINUX SYSTEM 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 Temperature 36.6 ??C (97.8 ??F) 08/30/2022 12:[address] Respiratory Rate 20 08/30/2022 12:21 PM LINUX SYSTEM 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 Oxygen Saturation 100% 08/30/2022 12:21 PM LINUX SYSTEM 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 Inhaled Oxygen Concentration - - Weight - [...] capsuleIndicatio ns:supplement Take 1 tablet by mouth computer hardware technician before breakfast 07/04/2016 4 cholecalciferol (VITAMIN D-3) 2,000 unit capsule Take 1 capsule (2,000 Units total) by mouth daily 30 capsule 2 04/25/2019 3 clotrimazole-bet amethasone (LOTRISONE) cream Apply 1 Application topically daily as needed (rash) 4 coenzyme [id number] E 100-5 mg-unit capsuleIndicatio ns:supplement Take 1 tablet by mouth computer hardware technician before breakfast 4 diphenoxylate-at ropine (LOMOTIL) [...] rhinitis or allergies 4 INV-[facility] cabozantinib/maris cebo (122/A02 1602) 20 mg tabletIndication s:cancer study Take 1 tablet (20 mg total) by mouth nightly Take on an empty stomach (no food for 2 hours before and 1 hour after each dose).?? Avoid [place]'s Wort, grapefruit products and [place] oranges while on treatment. placed on hold 09/26/22 for covid 01/29/2022 4 levothyroxine (SYNTHROID) 88 mcg tabletIndication s:Hypothyroidism due to medication TAKE 1 TABLET (88 MCG TOTAL) BY MOUTH ELECTRONIC MUSICAL INSTRUMENT REPAIRER BEFORE BREAKFAST 30 tablet 1 08/08/2022 3 [...] neoplasm of bone and bone marrow Dehydration Hypophosphatemia Disorders of phosphorus metabolism documented in this encounter Orders Medications Ordered That Brett ht Not Have Been Administered Count Last Ordered Date First Ordered Date sodium chloride 0.9% 0.9% in fusion - ADS Override Pull 1 08/30/2022 sodium chloride 0.9% bolus 1,000 mL 1 08/30 Appointment Requests Count Last Ordered Date Fi rst Ordered Date ONCBCN INFUSION APPT REQUEST 1 08/30/2022 documented in this encounter Care Teams Sole Splitter Relationship Specialty Start Date End Date Julio César Briseno MD PCP - General 10/01/16 Eren Cr MD Referring Physician Medical Oncology 11/25/18 Yohana Bowen MD Radiation Oncologist Radiation Oncology 11/25/18 documented as of this encounter
--- OUTSIDE RECORDS SUMMARY | 2024-06-25 22:16 | XMS_ITS | Encounter Summary ---
Author Organization [facility] Address [address] [place] [address] Phone Care Team Providers Care Lan Manager Name Role Phone Julio César Briseno MD Primary Care Provider [phone] Eren Cr MD Unavailable [phone] Yohana Bowen MD Unavailable Reason for Visit * Reason Comments Injections * Episode Based Medications (Routine) - Authorized Specialty Diagnoses / Procedures Referred By Contac t Referred To Contact Oncology Diagnoses Neuroendocrine carcinoma (HCC) Malignant neoplasm metastatic to liver (HCC) Procedures [place] OCTREOTIDE INJECTION, DEPOT Octreotide 28 Day Cycles - Carcinoid Eren Cr MD [address] [place] [address] Phone: tel: fax: [address] [address] Phone: tel: fax: Referral ID Status Reason Start Date Expiration Date V isits Requested Visits Authorized [id number] Authorized 11/28/2017 02/05/2025 1 150 Encounter Details Date Type Department Care Team (Late st Contact Info) Description 09/06/2022 2:45 PM BENDING SHED WORKER Infusion [facility] Oncology [address] [place] [address] Neuroendocrine carcinoma (CMS/HCC) (HCC); 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) Social History Tobacco Use Types [...] on file Legal Sex Female 2:41 PM BENDING SHED WORKER Gender Identity Not on file Sexual Orientation Straight 02/19/2021 9: 29 AM CDT Occupation Industry Job Start Date Job End Date retired Not on file Not on file Not on file documented as of this encounter Nursing Notes * Vivian Jenkins RN - 09/06/2022 2:45 PM CST Oncology Nursing Note [facility] La hCung is a 71 y.o. female who presents for the following injection: Octreotide/xgeva. Nursing Assessment Review flowsheet BP: 127/74 Temp: 36.6 ??C (97.8 ??F) Temp src: Oral Pulse: 90 Resp: 18 SpO2: 99 % Weight: 77.6 kg (171 lb) Patient: met treatment parameters La Chung tolerated injection well Discharge Plan Discharge instructions given to patient. Discharge Mode: Ambulatory Accompanied by: Self Discharged To: Home ING SHED WORKER * Vivian Jenkins RN - 09/06/2022 2:45 PM CST Oncology Nursing Note [facility] La Chung is a 71 y.o. female who presents for the following injection: Octreotide/Xgeva. Nursing Assessment Additional Notes: please review flowhseet for assessment. Pt denies jaw, recent or upcoming dental work. BP: 127/74 Temp: 36.6 ??C (97.8 ??F) Temp src: Oral Pulse: 90 Resp: 18 SpO2: 99 % Weight: 77.6 kg (171 lb) Patient: met treatment parameters La Chung tolerated injection well Discharge Plan Discharge instructions given to patient. Discharge Mode: Ambulatory Accompanied by: Self Discharged To: Home in stable condition ING SHED WORKER documented in this encounter Plan of [...] mg 120 mg, subcutaneous, Once, On Lydia 09/06/22 at 1615, For 1 dose, Calcium level should be greater than 8 mg/dl Administer injection in upper arm, abdomen or upper thigh Refrigerate. Allow to stand 15 to 30 mins prior to useIndications:Bone metastasis,Neuro-endocrin e carcinoma (HCC) Given 09/06/2022 3:41 PM BENDING SHED WORKER 120 mg Right Lower Abdomen octreotide LAR (SandoSTATIN LAR) extended release intramuscular injection 30 mg 30 mg, intramuscular, Once, On Lydia 09/06/22 at 1600, For 1 dose, Refrigerate. For IM intragluteal administration only- alternate gluteal sites. Shake.Indications:Maligna nt neoplasm metastatic to liver (HCC),Neuroendocrine carcinoma (HCC) Given 09/06/2022 3:42 PM BENDING SHED WORKER 30 mg Left Ventrogluteal documented in this encounter Orders Appointment Requests Count Last Ordered Date Fi rst Ordered Date ONCBCN INJECTION APPOINTMENT REQUEST 1 08/2022 documented in this encounter Care Teams Lan Manager Relationship Specialty Start Date End Date Julio César Briseno MD PCP - General 10/01/16 Eren Cr MD Referring Physician Medical Oncology 11/25/18 Yohana Bowen MD Radiation Oncologist Radiation Oncology 11/25/18 documented as of this encounter
--- OUTSIDE RECORDS SUMMARY | 2024-06-25 22:16 | XMS_ITS | Encounter Summary ---
Author Organization [facility] Address [address] [place] [address] Phone Care Team Providers Care Data Developer Name Role Phone Julio César Briseno MD Primary Care Provider [phone] Eren Cr MD Unavailable Yohana Bowen MD Unavailable Reason for Visit * Episode Based Medications (Routine) - Closed Specialty Diagnoses / Procedures Referred By Evelyne bowman Referred To Contact Diagnoses Neuro-endocrine carcinoma (HCC) Procedures study [id number] phase III cabozantinib Eren Cr MD [address] [facility] [address] [place] [address] Phone: tel: fax: [facility] [address] [facility] 7th [place] [address] Phone: tel: Referral ID Status Reason Start Date Expiration Date Visits Re quested Visits Authorized [id number] Closed 06/21/2021 06/26/2024 1 99 Encounter Details Date Type Department Care Team (Latest Contact Info) Description 08/07/2022 2:30 PM SHED WORKERS SUPERVISOR Research Med Pick-Up/CTRU Steam Table Attendant [facility] [address] [place] [address] Neuro-endocrine carcinoma (CMS/HCC) (HCC) (Primary Dx) Social [...] on file Legal Sex Female 2:41 PM SHED WORKERS SUPERVISOR Gender Identity Not on file Sexual [...] Date First Ordered Date INV-[facility] cabozantinib/pl acebo (2017-08-122/[id number]) tablet 20 mg 1 08/07/2022 Nursing Count Last Ordered Date First Orde red Date ONCBCN STUDY COMMUNICATION 2 1 08/07/2022 ONCBCN TREATMENT PARAMETERS 1 1 08/07/2022 RESEARCH STUDY CLARIFICATION ORDER 1 2022 Appointment Requests Count Last Ordered Date Fi rst Ordered Date ONCBCN TAKE HOME STUDY DRUG APPT 1 08/07/19 23 documented in this encounter Care Teams Data Developer Relationship Specialty Start Date End Date Julio César Briseno MD PCP - General 10/01/16 Eren Cr MD Referring Physician Medical Oncology 11/25/18 Yohana Bowen MD Radiation Oncologist Radiation Oncology 11/25/18 documented as of this encounter
--- OUTSIDE RECORDS SUMMARY | 2024-06-25 22:16 | XMS_ITS | Encounter Summary ---
Author Organization [facility] Address [address] [place] [address] Phone Care Team Providers Care Watch Crystal Edge Grinder Name Role Phone Julio César Briseno MD Primary Care Provider [phone] Eren Cr MD Unavailable [phone] Yohana Bowen MD Unavailable Reason for Visit * Reason Comments Injections * Episode Based Medications (Routine) - Authorized Specialty Diagnoses / Procedures Referred By Contellen t Referred To Contact Oncology Diagnoses Neuroendocrine carcinoma (HCC) Malignant neoplasm metastatic to liver (HCC) Procedures [place] OCTREOTIDE INJECTION, DEPOT Octreotide 28 Day Cycles - Carcinoid Eren Cr MD [address] [place] [address] Phone: tel: fax: [address] [address] Phone: tel: fax: Referral ID Status Reason Start Date Expiration Date V isits Requested Visits Authorized [id number] Authorized 11/28/2017 02/05/2025 1 150 Encounter Details Date Type Department Care Team (Late st Contact Info) Description 08/07/2022 2:00 PM HARNESS AND BAG INSPECTOR Infusion [facility] Oncology [address] [place] [address] Neuroendocrine carcinoma (CMS/HCC) (HCC) (Primary Dx); 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) [...] on file Legal Sex Female 2:41 PM HARNESS AND BAG INSPECTOR Gender Identity Not on file Sexual [...] extended release intramuscular injection 30 mg 1 08/07/2022 Nursing Count Last Ordered Date First Orde red Date ONCBCN NURSING COMMUNICATION [id number] 2 08/07 Appointment Requests Count Last Ordered Date Fi rst Ordered Date ONCBCN INJECTION APPOINTMENT REQUEST 1 07/10 documented in this encounter Care Teams Watch Crystal Edge Grinder Relationship Specialty Start Date End Date Julio César Briseno MD PCP - General 10/01/16 Eren Cr MD Referring Physician Medical Oncology 11/25/18 Yohana Bowen MD Radiation Oncologist Radiation Oncology 11/25/18 documented as of this encounter
--- OUTSIDE RECORDS SUMMARY | 2024-06-25 22:16 | XMS_ITS | Encounter Summary ---
Author Organization [facility] Address [address] [place] [address] Phone Care Team Providers Care Design Cell Engineer Name Role Phone Julio César Briseno MD Primary Care Provider Eren Cr MD Unavailable Yohana Bowen MD Unavailable Encounter Details Date Type Department Care Team (Late st Contact Info) Description 08/30/[address] [facility] Oncology [address] [place] [address] Eren Cr MD [address] [place], [place] [id number] 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) (Primary Dx) Social History Tobacco [...] file Legal Sex Female 2:41 PM MARKETING PRODUCER Gender Identity Not on file Sexual Orientation Straight 02/19/2021 9: 29 AM CDT Occupation Industry Job Start Date Job End Date retired Not on file Not on file Not on file documented as of this encounter Plan of Treatment Not on file documented as of this encounter Visit Diagnoses Diagnosis Malignant neoplasm metastatic to liver (HCC)- Primary documented in this encounter Care Teams Design Cell Engineer Relationship Specialty Start Date End Date Julio César Briseno MD PCP - General 10/01/16 Eren Cr MD Referring Physician Medical Oncology 11/25/18 Yohana Bowen MD Radiation Oncologist Radiation Oncology 11/25/18 documented as of this encounter
--- OUTSIDE RECORDS SUMMARY | 2024-06-25 22:17 | XMS_ITS | Encounter Summary ---
Author Organization [facility] Healthcare Address [address] [place] [address] Care Team Providers Care Custodial Worker Name Role Phone Julio César Briseno MD Primary Care Provider [phone] Eren Cr MD Unavailable [phone] Yohana Bowen MD Unavailable Reason for Visit * Reason Comments hydration Encounter Details Date Type Department Care Team (Latest Contact Info) Description 07/26/2022 12:30 PM MEDICINE MAN - 07/26/2022 11:59 PM MEDICINE MAN Hospital Encounter [facility] ([facility]) [address] [place] [address] Eren Cr MD [facility] [address] [place] [address] Dehydration (Primary Dx); Neuro-endocrine carcinoma (CMS/HCC) (HCC); Neuroendocrine carcinoma (CMS/HCC) (HCC); Hypophosphatemia Discharge Disposition: Discharge to home [...] on file Legal Sex Female 2:41 PM MEDICINE MAN Gender Identity Not on file Sexual Orientation Straight 02/19/2021 9: 29 AM CDT Occupation Industry Job Start Date Job End Date retired Not on file Not on file Not on file documented as of this encounter Last Filed Vital Signs Vital Sign Reading Time Taken Comments Blood Pressure 175/75 07/26/2022 3:22 PM MEDICINE MAN Pulse 64 07/26/2022 3:22 PM MEDICINE MAN Temperature 36.7 ??C (98.1 ??F) 07/26/2022 12:[address] Respiratory Rate 18 07/26/2022 12:39 PM MEDICINE MAN Oxygen Saturation 100% 07/26/2022 3:22 PM MEDICINE MAN Inhaled Oxygen Concentration - - Weight - [...] tablet (20 mg total) by mouth nightly ascorbic acid, vitamin C, 500 mg capsuleIndicatio ns:supplement Take 1 tablet by mouth business analyst ecommerce before breakfast 07/04/2016 4 cholecalciferol (VITAMIN D-3) 2,000 unit capsule Take 1 capsule (2,000 Units total) by mouth daily 30 capsule 2 04/25/2019 3 clotrimazole-bet amethasone (LOTRISONE) cream Apply 1 Application topically daily as needed (rash) 4 coenzyme Z74-[id number] E 100-5 mg-unit capsuleIndicatio ns:supplement Take 1 tablet by mouth business analyst ecommerce before breakfast 4 diphenoxylate-at ropine (LOMOTIL) 2.5-0.025 [...] rhinitis or allergies 4 IN[facility] cabozantinib/maris cebo (2018-08-122/A02 1602) 20 mg tabletIndication s:cancer study Take 1 tablet (20 mg total) by mouth nightly Take on an empty stomach (no food for 2 hours before and 1 hour after each dose).?? Avoid [place]'s Wort, grapefruit products and [place] oranges while on treatment. placed on hold 09/26/22 for covid 01/29/2022 4 levothyroxine (SYNTHROID) 88 mcg tabletIndication s:Hypothyroidism due to medication TAKE 1 TABLET (88 MCG TOTAL) BY MOUTH STRING TOP SEALER BEFORE BREAKFAST 30 tablet 1 07/03/2022 3 LORazepam (ATIVAN) 0.5 mg tabletIndication s:MRI [...] in this encounter Nursing Notes * Kelly Kohler RN - 07/26/2022 12:30 PM CST Pt presented to the [facility] for hydration. VS WNL. PAC accessed. Blood return sluggish, flushes easily.Administered 1L NS. Pt complained of nausea, administered Zofran. Pt tolerated well. BP increased, all other VS WNL. Educated pt and spouse to re-check BP at home after she has been able to relax. PAC flushed, heparinized, and discontinued. Pt ambulatory and discharged home accompanied by her . CINE MAN documented in this encounter Plan of Treatment Not on file documented as of this encounter Visit Diagnoses Diagnosis Dehydration- Primary Neuro-endocrine carcinoma (HCC) Other malignant neoplasm [...] as needed, line care, Starting on Lydia 07/26/22 at 1235, Flush when all medication administered and labs completed for the day.Indications:Dehydration,N euroendocrine carcinoma (HCC) Given 07/26/2022 3:12 PM MEDICINE MAN 500 Units ondansetron (ZOFRAN) injection 8 mg 8 mg, intravenous, Administer over 2 Minutes, Once as needed, nausea, vomiting, Starting on Lydia 07/26/22 at 1416, For 1 doseIndications:Hypophosphate jaycee Given 07/26/2022 2:18 PM MEDICINE MAN 8 mg sodium chloride 0.9% bolus 1,000 mL 1,000 mL, intravenous, at 500 mL/hr, Administer over 2 Hours, Once, On Lydia 07/26/22 at 1310, For 1 doseIndications:Dehydration,N euroendocrine carcinoma (HCC) New Bag 07/26/2022 1:10 PM MEDICINE MAN 1,000 mL 500 mL/hr documented in this encounter Orders Medications Ordered That Brett ht Not Have Been Administered Count Last Ordered Date First Ordered Date sodium chloride 0.45% bolus 90 mL 1 023 sodium chloride 0.9% bolus 1,000 mL 1 07/26 sodium chloride 0.9% bolus 90 mL 1 07/26/19 23 Appointment Requests Count Last Ordered Date Fi rst Ordered Date ONCBCN INFUSION APPT REQUEST 1 07/26/2022 documented in this encounter Care Teams Custodial Worker Relationship Specialty Start Date End Date Julio César Briseno MD PCP - General 10/01/16 Eren Cr MD Referring Physician Medical Oncology 11/25/18 Yohana Bowen MD Radiation Oncologist Radiation Oncology 11/25/18 documented as of this encounter
--- OUTSIDE RECORDS SUMMARY | 2024-06-25 22:17 | XMS_ITS | Encounter Summary ---
Author Organization [facility] Address [address] [place] [address] Phone Care Team Providers Care Fitting Room Supervisor Name Role Phone Juilo César Briseno MD Primary Care Provider Eren Cr MD Unavailable [phone] Yohana Bowen MD Unavailable Reason for Visit * Reason Comments Injections Kenneth and Ene herr Encounter Details Date Type Department Care Team (Late st Contact Info) Description 07/12/2022 12:00 PM TELETYPE TECHNICIAN Infusion [facility] Oncology [address] [place] [address] Dehydration; Neuro-endocrine carcinoma (CMS/HCC) (HCC) Social History Tobacco Use [...] on file Legal Sex Female 2:41 PM TELETYPE TECHNICIAN Gender Identity Not on file Sexual Orientation Straight 02/19/2021 9: 29 AM CDT Occupation Industry Job Start Date Job End Date retired Not on file Not on file Not on file documented as of this encounter Plan of Treatment Not on file documented as of this encounter Visit Diagnoses Diagnosis Dehydration Neuro-endocrine carcinoma (HCC) Other malignant neoplasm of unspecified site documented in this encounter Orders Appointment Requests Count Last Ordered Date Fi rst Ordered Date ONCBCN INFUSION APPT REQUEST 1 07/12/2022 documented in this encounter Care Teams Fitting Room Supervisor Relationship Specialty Start Date End Date Julio César Briseno MD PCP - General 10/01/16 Eren Cr MD Referring Physician Medical Oncology 11/25/18 Yohana Bowen MD Radiation Oncologist Radiation Oncology 11/25/18 documented as of this encounter
--- OUTSIDE RECORDS SUMMARY | 2024-06-25 22:17 | XMS_ITS | Encounter Summary ---
Author Organization [facility] Address [address] [place] [address] Phone Care Team Providers Care Sociology Professor Name Role Phone Julio César Briseno MD Primary Care Provider Eren Cr MD Unavailable [phone] Yohana Bowen MD Unavailable Encounter Details Date Type Department Care Team (Late st Contact Info) Description 07/12/2022 Orders Only [facility] Oncology [address] [place] [address] Opal Avila, EMT Neuroendocrine carcinoma (CMS/HCC) (HCC) (Primary Dx) Social History [...] file Legal Sex Female 2:41 PM SUPERVISOR SANDBLASTER Gender Identity Not on file Sexual Orientation Straight 02/19/2021 9: 29 AM CDT Occupation Industry Job Start Date Job End Date retired Not on file Not on file Not on file documented as of this encounter Plan of Treatment Not on file documented as of this encounter Results * Protein / creatinine ratio, urine, random (07/12/2022 10:50 AM SUPERVISOR SANDBLASTER) Protein, ur, quant 7.0 mg/dL [facility] Comment: Interpretive Data No reference range established. Current interpretive data was last revised 2018. Creatinine Ur 127.6 mg/dL [facility] Comment: Interpretive Data No reference range established. Current interpretive data was last revised 2018. Protein/creatinin e ratio 54.9 0.0 - 180.0 mg/g CR [facility] Urine 07/12/2022 10:5 0 AM SUPERVISOR SANDBLASTER 07/12/2022 1:29 PM SUPERVISOR SANDBLASTER us Eren Cr MD LAB URINE ORDERABLES Final Re sult [facility] [place] [address] documented in this encounter Visit Diagnoses Diagnosis Neuroendocrine carcinoma (HCC)- Primary Other malignant neoplasm of unspecified site documented in this encounter Care Teams Sociology Professor Relationship Specialty Start Date End Date Julio César Briseno MD PCP - General 10/01/16 Eren Cr MD Referring Physician Medical Oncology 11/25/18 Yohana Bowen MD Radiation Oncologist Radiation Oncology 11/25/18 documented as of this encounter
--- OUTSIDE RECORDS SUMMARY | 2024-06-25 22:17 | XMS_ITS | Encounter Summary ---
Author Organization [facility] Address [address] [place] [address] Care Team Providers Care Ferryboat Deckhand Name Role Phone Julio César Briseno MD Primary Care Provider Eren Cr MD Unavailable [phone] Yohana Bowen MD Unavailable Encounter Details Date Type Department Care Team (Latest Contact Info) Description 08/02/2022 1:27 PM IMITATION MARBLE MECHANIC - 08/02/2022 11:59 PM IMITATION MARBLE MECHANIC Hospital Encounter [facility] [address] [place] [id number] Dehydration (Primary Dx); Neuro-endocrine carcinoma (CMS/HCC) (HCC); Neuroendocrine carcinoma (CMS/HCC) (HCC) Discharge Disposition: Discharge [...] on file Legal Sex Female 2:41 PM IMITATION MARBLE MECHANIC Gender Identity Not on file Sexual Orientation Straight 02/19/2021 9: 29 AM CDT Occupation Industry Job Start Date Job End Date retired Not on file Not on file Not on file documented as of this encounter Last Filed Vital Signs Vital Sign Reading Time Taken Comments Blood Pressure 125/52 08/02/2022 3:40 PM IMITATION MARBLE MECHANIC Pulse 63 08/02/2022 3:40 PM IMITATION MARBLE MECHANIC Temperature 36.8 ??C (98.2 ??F) 08/02/2022 3:40 PM CS T Respiratory Rate 16 08/02/2022 3:40 PM IMITATION MARBLE MECHANIC Oxygen Saturation 100% 08/02/2022 3:40 PM IMITATION MARBLE MECHANIC Inhaled Oxygen Concentration - - Weight - [...] capsuleIndicatio ns:supplement Take 1 tablet by mouth chip person before breakfast 07/04/2016 4 cholecalciferol (VITAMIN D-3) 2,000 unit capsule Take 1 capsule (2,000 Units total) by mouth daily 30 capsule 2 04/25/2019 3 clotrimazole-bet amethasone (LOTRISONE) cream Apply 1 Application topically daily as needed (rash) 4 coenzyme U15-haoasmk E 100-5 mg-unit capsuleIndicatio ns:supplement Take 1 tablet by mouth chip person before breakfast 4 diphenoxylate-at ropine (LOMOTIL) 2.5-0.025 [...] dose).?? Avoid Jas's Wort, grapefruit products and [place] oranges while on treatment. placed on hold 09/26/22 for covid 01/29/2022 4 levothyroxine (SYNTHROID) 88 mcg tabletIndication s:Hypothyroidism due to medication TAKE 1 TABLET (88 MCG TOTAL) BY MOUTH ELEVATOR INSTALLER APPRENTICE BEFORE BREAKFAST 30 tablet 1 07/03/2022 3 [...] documented in this encounter Nursing Notes * Hola Heredia RN - 08/02/2022 1:30 PM CST Pt arrived to [facility] for IVF. PAC accessed, flushes easily with sluggish blood return. 1L NS bolus completed and tolerated well. PAC instilled w/ heparin and de-accessed. [place] ATION MARBLE MECHANIC documented in this encounter Plan of Treatment [...] Administer over 2 Hours, Once, On Lydia 08/02/22 at 1400, For 1 doseIndications:Dehydration ,Neuroendocrine carcinoma (HCC) New Bag 08/02/2022 1:57 PM IMITATION MARBLE MECHANIC 1,000 mL 500 mL/hr documented in this encounter Orders Medications Ordered That Brett ht Not Have Been Administered Count Last Ordered Date First Ordered Date heparin 100 unit/mL injection 500 Units 1 0 08/02/2022 sodium chloride 0.9% bolus 1,000 mL 1 08/02 Appointment Requests Count Last Ordered Date Fi rst Ordered Date ONCBCN INFUSION APPT REQUEST 1 08/02/2022 documented in this encounter Care Teams Ferryboat Deckhand Relationship Specialty Start Date End Date Julio César Briseno MD PCP - General 10/01/16 Eren Cr MD Referring Physician Medical Oncology 11/25/18 Yohana Bowen MD Radiation Oncologist Radiation Oncology 11/25/18 documented as of this encounter
--- OUTSIDE RECORDS SUMMARY | 2024-06-25 22:17 | XMS_ITS | Encounter Summary ---
Author Organization [facility] Address [address] [place] [address] Phone Care Team Providers Care Head Of Integrated Media Name Role Phone Julio César Briseno MD Primary Care Provider [phone] Eren Cr MD Unavailable [phone] Yohana Bowen MD Unavailable Encounter Details Date Type Department Care Team (Late st Contact Info) Description 07/12/2022 Orders Only [facility] Oncology [address] [place] [address] Eren Cr MD [address] [facility] [address] [place] [address] Dehydration (Primary Dx); Neuro-endocrine carcinoma (CMS/HCC) (HCC) Social History Tobacco [...] on file Legal Sex Female 2:41 PM RESPIRATORY CLINICIAN Gender Identity Not on file Sexual Orientation [...] 07/26/2022 documented in this encounter Care Teams Head Of Integrated Media Relationship Specialty Start Date End Date Julio César Briseno MD PCP - General 10/01/16 Eren Cr MD Referring Physician Medical Oncology 11/25/18 Yohana Bowen MD Radiation Oncologist Radiation Oncology 11/25/18 documented as of this encounter
--- OUTSIDE RECORDS SUMMARY | 2024-06-25 22:17 | XMS_ITS | Encounter Summary ---
Author Organization [facility] Address [address] [place] [address] Phone Care Team Providers Care Manager Deli Name Role Phone Julio César Briseno MD Primary Care Provider Eren Cr MD Unavailable [phone] Yohana Bowen MD Unavailable Encounter Details Date Type Department Care Team (Late st Contact Info) Description 07/12/2022 Orders Only [facility] Oncology [address] [place] [address] Yoana Murray [facility] Social History Tobacco Use Types Packs/Day [...] on file Legal Sex Female 2:41 PM MUD CLEANER OPERATOR Gender Identity Not on file Sexual Orientation Straight 02/19/2021 9: 29 AM CDT Occupation Industry Job Start Date Job End Date retired Not on file Not on file Not on file documented as of this encounter Plan of Treatment Not on file documented as of this encounter Visit Diagnoses Not on filedocumented in this encounter Care Teams Manager Deli Relationship Specialty Start Date End Date Julio César Briseno MD PCP - General 10/01/16 Eren Cr MD Referring Physician Medical Oncology 11/25/18 Yohana Bowne MD Radiation Oncologist Radiation Oncology 11/25/18 documented as of this encounter
--- OUTSIDE RECORDS SUMMARY | 2024-06-25 22:17 | XMS_ITS | Encounter Summary ---
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) Procedures [place] OCTREOTIDE INJECTION, DEPOT Octreotide 28 Day Cycles - Carcinoid Eren Cr MD [address] [place] [address] Phone: tel: fax: [address] [address] Phone: tel: fax: Referral ID Status Reason Start Date Expiration Date V isits Requested Visits Authorized [id number] Authorized 11/28/2017 02/05/2025 1 150 Encounter Details Date Type Department Care Team (Latest Contact Info) Description 07/12/2022 10:00 AM WOOL WASHER FEEDER Clinical Support [facility] Oncology [address] [place] [address] Neuroendocrine carcinoma (CMS/HCC) (HCC); 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); Neuro-endocrine carcinoma (CMS/HCC) (HCC) Social History Tobacco [...] on file Legal Sex Female 2:41 PM WOOL WASHER FEEDER Gender Identity Not on file Sexual [...] rst Ordered Date ONCBCN LAB APPOINTMENT 2 07/12/2022 documented in this encounter Care Teams Marine Mechanic Relationship Specialty Start Date End Date Julio César Briseno MD PCP - General 10/01/16 Eren Cr MD Referring Physician Medical Oncology 11/25/18 Yohana Bowen MD Radiation Oncologist Radiation Oncology 11/25/18 documented as of this encounter
--- OUTSIDE RECORDS SUMMARY | 2024-06-25 22:17 | XMS_ITS | Encounter Summary ---
Author Organization [facility] Address [address] [place] [address] Phone Care Team Providers Care Duplicator Punch Operator Name Role Phone Julio César Briseno MD Primary Care Provider [phone] Eren Cr MD Unavailable [phone] Yohana Bowen MD Unavailable Encounter Details Date Type Department Care Team (Late st Contact Info) Description 07/13/2022 Orders Only [facility] Oncology [address] [place] [address] Eren Cr MD [address] [place], [place] [id number] Social History Tobacco Use Types Packs/Day Years [...] on file Legal Sex Female 2:41 PM ADJUNCT INSTRUCTOR OF WOMEN'S STUDIES Gender Identity Not on file Sexual Orientation Straight 02/19/2021 9: 29 AM CDT Occupation Industry Job Start Date Job End Date retired Not on file Not on file Not on file documented as of this encounter Plan of Treatment Not on file documented as of this encounter Visit Diagnoses Not on filedocumented in this encounter Care Teams Duplicator Punch Operator Relationship Specialty Start Date End Date Julio César Briseno MD PCP - General 10/01/16 Eren Cr MD Referring Physician Medical Oncology 11/25/18 Yohana Bowen MD Radiation Oncologist Radiation Oncology 11/25/18 documented as of this encounter
--- OUTSIDE RECORDS SUMMARY | 2024-06-25 22:17 | XMS_ITS | Encounter Summary ---
Author Organization [facility] Healthcare Address [address] [place] [address] Care Team Providers Care Mine Geologist Name Role Phone Julio César Briseno MD Primary Care Provider [phone] Eren Cr MD Unavailable [phone] Yohana Bowen MD Unavailable Encounter Details Date Type Department Care Team (Latest Contact Info) Description 07/12/2022 9:37 AM BILLING AND ACCOUNTING STAFF ASSISTANT - 07/12/2022 11:59 PM BILLING AND ACCOUNTING STAFF ASSISTANT Hospital Encounter [address] [address] Neuroendocrine carcinoma (CMS/HCC) (HCC); 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); Neuro-endocrine carcinoma (CMS/HCC) (HCC) Discharge Disposition: Discharge to [...] on file Legal Sex Female 2:41 PM BILLING AND ACCOUNTING STAFF ASSISTANT Gender Identity Not on file Sexual [...] capsuleIndicatio ns:supplement Take 1 tablet by mouth production team manager before breakfast 07/04/2016 4 cholecalciferol (VITAMIN D-3) 2,000 unit capsule Take 1 capsule (2,000 Units total) by mouth daily 30 capsule 2 04/25/2019 3 clotrimazole-bet amethasone (LOTRISONE) cream Apply 1 Application topically daily as needed (rash) 4 coenzyme [id number] 100-5 mg-unit capsuleIndicatio ns:supplement Take 1 tablet by mouth production team manager before breakfast 4 diphenoxylate-at ropine (LOMOTIL) 2.5-0.025 [...] as needed for rhinitis or allergies 4 [facility] cabozantinib/maris cebo (2017--122/A02 1602) 20 mg tabletIndication s:cancer study Take 1 tablet (20 mg total) by mouth nightly Take on an empty stomach (no food for 2 hours before and 1 hour after each dose).?? Avoid [place]'s Wort, grapefruit products and [place] oranges while on treatment. placed on hold 09/26/22 for covid 01/29/2022 4 levothyroxine (SYNTHROID) 88 mcg tabletIndication s:Hypothyroidism due to medication TAKE 1 TABLET (88 MCG TOTAL) BY MOUTH OPTICIAN BEFORE BREAKFAST 30 tablet 1 07/03/2022 3 [...] PROTEIN / CREATININE RATIO, URINE, RANDOM Routine 07/12/2022 10:50 AM BILLING AND ACCOUNTING STAFF ASSISTANT Neuroendocrine carcinoma (CMS/HCC) (HCC) EGFR STAT 07/12/2022 9:48 AM BILLING AND ACCOUNTING STAFF ASSISTANT 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) EGFR STAT 07/12/2022 9:48 AM BILLING AND ACCOUNTING STAFF ASSISTANT Neuro-endocrine carcinoma (CMS/HCC) (HCC) DIFFERENTIAL AUTO Routine 07/12/2022 9:4 8 AM BILLING AND ACCOUNTING STAFF ASSISTANT 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) CHROMOGRANIN A Routine 07/12/2022 9:48 AM BILLING AND ACCOUNTING STAFF ASSISTANT 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) CBC WITH AUTO DIFFERENTIAL Routine 07/12/2022 9:48 AM BILLING AND ACCOUNTING STAFF ASSISTANT 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) VITAMIN D 25 HYDROXY Routine 07/12/2022 9:48 AM BILLING AND ACCOUNTING STAFF ASSISTANT 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) PHOSPHORUS STAT 07/12/2022 9:48 AM BILLING AND ACCOUNTING STAFF ASSISTANT Neuro-endocrine carcinoma (CMS/HCC) (HCC) PHOSPHORUS Routine 07/12/2022 9:48 AM BILLING AND ACCOUNTING STAFF ASSISTANT 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) MAGNESIUM STAT 07/12/2022 9:48 AM BILLING AND ACCOUNTING STAFF ASSISTANT Neuro-endocrine carcinoma (CMS/HCC) (HCC) LIPID PANEL Routine 07/12/2022 9:48 AM BILLING AND ACCOUNTING STAFF ASSISTANT 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) COMPREHENSIVE METABOLIC PANEL STAT 07/12/2022 9:48 AM BILLING AND ACCOUNTING STAFF ASSISTANT Neuro-endocrine carcinoma (CMS/HCC) (HCC) COMPREHENSIVE METABOLIC PANEL STAT 07/12/2022 9:48 AM BILLING AND ACCOUNTING STAFF ASSISTANT 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) documented in this encounter Results * Protein / creatinine ratio, urine, random (07/12/2022 10:50 AM BILLING AND ACCOUNTING STAFF ASSISTANT) Pathologist [facility] Protein, ur, quant 7.0 mg/dL [facility] Comment: Interpretive Data No reference range established. Current interpretive data was last revised 2018. Creatinine Ur 127.6 mg/dL [facility] Comment: Interpretive Data No reference range established. Current interpretive data was last revised 2018. Protein/creatinin e ratio 54.9 0.0 - 180.0 mg/g CR [facility] Urine 07/12/2022 10:5 0 AM BILLING AND ACCOUNTING STAFF ASSISTANT 07/12/2022 1:29 PM BILLING AND ACCOUNTING STAFF ASSISTANT us Eren Cr MD LAB URINE ORDERABLES Final Re sult [facility] Department [place] [address] * (ABNORMAL) eGFR (07/12/2022 9:48 AM BILLING AND ACCOUNTING STAFF ASSISTANT) Pathologist [facility] eGFR 52(L) 90 - 130 mL/min/1. 73 m2 [facility] Comment: Interpretive Data Reference Interval Normal [...] interpretive data was last reviewed 2021. Blood 07/12/2022 9:48 AM BILLING AND ACCOUNTING STAFF ASSISTANT 07/12/2022 10:02 AM BILLING AND ACCOUNTING STAFF ASSISTANT us Eren Cr MD LAB BLOOD ORDERABLES Final Re sult [facility] Department [place] [address] * (ABNORMAL) eGFR (07/12/2022 9:48 AM BILLING AND ACCOUNTING STAFF ASSISTANT) Pathologist [facility] eGFR 52(L) 90 - 130 mL/min/1. 73 m2 [facility] Comment: Interpretive Data Reference Interval Normal [...] interpretive data was last reviewed 2021. Blood 07/12/2022 9:48 AM BILLING AND ACCOUNTING STAFF ASSISTANT 07/12/2022 10:02 AM BILLING AND ACCOUNTING STAFF ASSISTANT us Eren Cr MD LAB BLOOD ORDERABLES Final Re sult [facility] Department [place] [address] * (ABNORMAL) Differential, auto (07/12/2022 9:48 AM BILLING AND ACCOUNTING STAFF ASSISTANT) Pathologist [facility] Neutrophil abs 2.0 1.7 - 6.5 K/cumm [facility] Comment:Testing performed by : [facility], [address] [place] [address] Imm gran abs 0.0 0.0 - 0.1 K/cumm [facility] Lymphocyte abs 0.5(L) 0.8 - 3.3 K/cumm [facility] Monocyte abs 0.4 0.2 - 0.8 K/cumm [facility] Eosinophil abs 0.3 0.0 - 0.5 K/cumm [facility] Basophil abs 0.0 0.0 - 0.1 K/cumm [facility] Neutrophil pct 62.2 % [facility] Comment: Interpretive Data Percent cell count reference ranges are not reported, since discordance with absolute values may lead to misinterpretation of CBC data. Current Interpretive Data was last revised on 2017. Imm gran pct 0.6 % [facility] Comment: Interpretive Data Percent cell count reference ranges are not reported, since discordance with absolute values may lead to misinterpretation of CBC data. Current Interpretive Data was last revised on 2017. Lymphocyte pct 16.2 % [facility] Comment: Interpretive Data Percent cell count reference ranges are not reported, since discordance with absolute values may lead to misinterpretation of CBC data. Current Interpretive Data was last revised on 2017. Monocyte pct 11.9 % [facility] Comment: Interpretive Data Percent cell count reference ranges are not reported, since discordance with absolute values may lead to misinterpretation of CBC data. Current Interpretive Data was last revised on 2017. Eosinophil pct 8.5 % [facility] Comment: Interpretive Data Percent cell count reference ranges are not reported, since discordance with absolute values may lead to misinterpretation of CBC data. Current Interpretive Data was last revised on 2017. Basophil pct 0.6 % [facility] Comment: Interpretive Data Percent cell count reference ranges are not reported, since discordance with absolute values may lead to misinterpretation of CBC data. Current Interpretive Data was last revised on 2017. Blood 07/12/2022 9:48 AM BILLING AND ACCOUNTING STAFF ASSISTANT 07/12/2022 10:02 AM BILLING AND ACCOUNTING STAFF ASSISTANT us Eren Cr MD LAB BLOOD ORDERABLES Final Re [facility] Department [place] [address] * (ABNORMAL) Comprehensive metabolic panel (07/12/2022 9:48 AM BILLING AND ACCOUNTING STAFF ASSISTANT) Sodium 141 135 - 145 mmol/L [facility] Comment:Testing performed by : [facility], [address] [place] [address] Potassium, pl 3.9 3.3 - 4.9 mmol/L [facility] Chloride 108 97 - 110 mmol/L [facility] CO2 28 22 - 32 mmol/L [facility] Anion gap 5 2 - 15 mmol/L [facility] BUN 16 8 - 25 mg/dL [facility] Creatinine 1.11(H) 0.60 - 1.10 mg/dL [facility] Glucose 135 70 - 199 mg/dL [facility] Comment: Interpretive Data Fasting glucose >/= [...] classification and Diagnosis of Diabetes Diabetes Care 2017;40 (Suppl. 1):S11. Current interpretive data was last revised 2017. Calcium 10.3 8.5 - 10.3 mg/dL [facility] Bilirubin, total 0.6 0.1 - 1.2 mg/dL [facility] Protein, pl 6.4(L) 6.5 - 8.5 g/dL [facility] Albumin 4.0 3.5 - 5.0 g/dL [facility] Alk phos 59 40 - 130 Units/L [facility] ALT 24 7 - 45 Units/L [facility] AST 34 10 - 45 Units/L [facility] Blood 07/12/2022 9:48 AM BILLING AND ACCOUNTING STAFF ASSISTANT 07/12/2022 10:02 AM BILLING AND ACCOUNTING STAFF ASSISTANT us Eren Cr MD LAB BLOOD ORDERABLES Final Re sult [facility] [place] [address] * Magnesium (07/12/2022 9:48 AM BILLING AND ACCOUNTING STAFF ASSISTANT) Magnesium 1.4 1.4 - 2.5 mg/dL [facility] Comment:Testing performed by : [facility], [address] [place] [address] Blood 07/12/2022 9:48 AM BILLING AND ACCOUNTING STAFF ASSISTANT 07/12/2022 10:02 AM BILLING AND ACCOUNTING STAFF ASSISTANT Eren Cr MD LAB BLOOD ORDERABLES Final Re sult Performing Organization Address [facility] Co de Phone Number [facility] [place] [address] * Phosphorus (07/12/2022 9:48 AM BILLING AND ACCOUNTING STAFF ASSISTANT) Phosphorus, pl 2.6 2.3 - 4.5 mg/dL [facility] Comment:Testing performed by : [facility], [address] [place] [address] Blood 07/12/2022 9:48 AM BILLING AND ACCOUNTING STAFF ASSISTANT 07/12/2022 10:02 AM BILLING AND ACCOUNTING STAFF ASSISTANT Eren Cr MD LAB BLOOD ORDERABLES Final Re sult Performing Organization Address [facility] [place] [address] * (ABNORMAL) Lipid panel (07/12/2022 9:48 AM BILLING AND ACCOUNTING STAFF ASSISTANT) Cholesterol 183 30 - 199 mg/dL [facility] Comment: Interpretive Data Ages < or [...] Data was last revised on 2018. Triglycerides 262(H) <=149 mg/dL [facility] Comment: Interpretive Data Ages < or [...] revised on 2018. HDL 55 >=40 mg/dL [facility] Comment: Interpretive Data Ages < or [...] was last revised on 2018. LDL, calculated 76 <=129 mg/dL [facility] Comment: Interpretive Data Ages < or [...] was last revised on 2018. Non-HDL Cholesterol 128 mg/dL [facility] Comment: Interpretive Data Ages [...] 2018. Chol/HDL ratio 3 [facility] Blood 07/12/2022 9:48 AM BILLING AND ACCOUNTING STAFF ASSISTANT 07/12/2022 11:41 AM BILLING AND ACCOUNTING STAFF ASSISTANT us Eren Cr MD LAB BLOOD ORDERABLES Final Re sult [facility] Department [place] [address] * Phosphorus (07/12/2022 9:48 AM BILLING AND ACCOUNTING STAFF ASSISTANT) [facility] Phosphorus, pl 2.7 2.3 - 4.5 mg/dL [facility] Comment:Testing performed by : [address] [address] Blood 07/12/2022 9:48 AM BILLING AND ACCOUNTING STAFF ASSISTANT 07/12/2022 10:02 AM BILLING AND ACCOUNTING STAFF ASSISTANT Eren Cr MD LAB BLOOD ORDERABLES Final Re sult Performing Organization Address [facility] Co de Phone Number [facility] [place] [address] * (ABNORMAL) Vitamin D 25 hydroxy (07/12/2022 9:48 AM BILLING AND ACCOUNTING STAFF ASSISTANT) Pathologist [facility] Vitamin D 25-OH 19(L) 30 - 80 ng/mL [facility] Blood 07/12/2022 9:48 AM BILLING AND ACCOUNTING STAFF ASSISTANT 07/12/2022 11:41 AM BILLING AND ACCOUNTING STAFF ASSISTANT Eren Cr MD LAB BLOOD ORDERABLES Final Re sult Performing Organization Address [facility] de Phone Number [facility] [place] [address] * (ABNORMAL) CBC with auto differential (07/12/2022 9:48 AM BILLING AND ACCOUNTING STAFF ASSISTANT) [facility] WBC 3.3(L) 3.8 - 9.9 K/cumm [facility] Comment:Testing performed by : [address] [address] Hgb 12.1 11.9 - 15.5 g/dL [facility] Comment:Testing performed by : [address] [address] Hct 36.0 35.6 - 45.5 % [facility] Comment:Testing performed by : [address] [address] Plt 96(L) 150 - 400 K/cumm [facility] Comment:Testing performed by : [address] [address] MPV 10.7 9.1 - 12.3 fL [facility] RBC 3.67(L) 3.90 - 5.20 M/cumm [facility] MCV 98.1(H) 81.3 - 96.4 fL [facility] MCH 33.0 27.1 - 33.3 pg [facility] MCHC 33.6 32.3 - 35.7 g/dL [facility] RDW CV 14.3 11.1 - 14.9 % [facility] RDW SD 50.9(H) 35.7 - 48.1 fL [facility] NRBC abs 0.00 0.00 - 0.01 K/cumm [facility] Blood 07/12/2022 9:48 AM BILLING AND ACCOUNTING STAFF ASSISTANT 07/12/2022 10:02 AM BILLING AND ACCOUNTING STAFF ASSISTANT Eren Cr MD LAB BLOOD ORDERABLES Final Re sult [facility] Department [place] [address] * (ABNORMAL) Comprehensive metabolic panel (07/12/2022 9:48 AM BILLING AND ACCOUNTING STAFF ASSISTANT) Sodium 140 135 - 145 mmol/L [facility] Comment:Testing performed by : [facility], [address] [place] [address] Potassium, pl 3.9 3.3 - 4.9 mmol/L [facility] Chloride 107 97 - 110 mmol/L [facility] CO2 27 22 - 32 mmol/L [facility] Anion gap 6 2 - 15 mmol/L [facility] BUN 16 8 - 25 mg/dL [facility] Creatinine 1.11(H) 0.60 - 1.10 mg/dL [facility] Glucose 134 70 - 199 mg/dL [facility] Comment: Interpretive Data Fasting glucose >/= [...] classification and Diagnosis of Diabetes Diabetes Care 2017;40 (Suppl. 1):S11. Current interpretive data was last revised 2017. Calcium 10.1 8.5 - 10.3 mg/dL [facility] Bilirubin, total 0.6 0.1 - 1.2 mg/dL [facility] Protein, pl 6.3(L) 6.5 - 8.5 g/dL [facility] Albumin 3.9 3.5 - 5.0 g/dL [facility] Alk phos 61 40 - 130 Units/L [facility] ALT 25 7 - 45 Units/L [facility] AST 34 10 - 45 Units/L [facility] Blood 07/12/2022 9:48 AM BILLING AND ACCOUNTING STAFF ASSISTANT 07/12/2022 10:02 AM BILLING AND ACCOUNTING STAFF ASSISTANT us Eren Cr MD LAB BLOOD ORDERABLES Final Re sult [facility] [place] [address] * (ABNORMAL) Chromogranin A (07/12/2022 9:48 AM BILLING AND ACCOUNTING STAFF ASSISTANT) Chromogranin A 1006(H) <93 ng/mL [facility] Comment: Impaired renal or hepatic function or treatment with proton pump inhibitors may result in artifactual elevations of Chromogranin A. ADDITIONAL INFORMATION This test was developed and its performance characteristics determined by [facility] in a manner consistent with CLIA [...] a homogeneous time-resolved immunofluorescent assay manufactured by [employer] and performed on the [employer] Krypt[employer] Compact Plus. ? Values obtained with different assay methods or kits may be different and cannot be used interchangeably. ? Test results cannot be interpreted as absolute evidence for the presence or absence of malignant disease. Test Performed by: [facility] [address] [id number] Dye Stand Loader: Immanuel Novak M.D. Ph.D.; CLIA# [id number] Blood 07/12/2022 9:48 AM BILLING AND ACCOUNTING STAFF ASSISTANT 07/12/2022 2:04 PM BILLING AND ACCOUNTING STAFF ASSISTANT us Eren Cr MD LAB BLOOD ORDERABLES Final Re sult [facility] [place] [address] documented in this encounter Visit Diagnoses Diagnosis Neuroendocrine carcinoma (HCC) Other malignant neoplasm of unspecified site Malignant neoplasm metastatic to liver (HCC) Neuro-endocrine carcinoma (HCC) Other malignant neoplasm of unspecified site documented in this encounter Care Teams Mine Geologist Relationship Specialty Start Date End Date Julio César Briseno MD PCP - General 10/01/16 Eren Cr MD Referring Physician Medical Oncology 11/25/18 Yohana Bowen MD Radiation Oncologist Radiation Oncology 11/25/18 documented as of this encounter
--- OUTSIDE RECORDS SUMMARY | 2024-06-25 22:17 | XMS_ITS | Encounter Summary ---
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 [address] [place] [address] Eren Cr MD [address] [place] [address] Bone metastasis (CMS/HCC) (HCC) (Primary Dx); Neuro-endocrine carcinoma (CMS/HCC) (HCC); Malignant neoplasm metastatic to [...] on file Legal Sex Female 2:41 PM IMPORT CLERK Gender Identity Not on file Sexual Orientation Straight 02/19/2021 9: 29 AM CDT Occupation Industry Job Start Date Job End Date retired Not on file Not on file Not on file documented as of this encounter Last Filed Vital Signs Vital Sign Reading Time Taken Comments Blood Pressure 152/76 07/12/2022 11:19 AM IMPORT CLERK Pulse 75 07/12/2022 11:19 AM IMPORT CLERK Temperature 36.7 ??C (98.1 ??F) 07/12/2022 1 1:19 AM IMPORT CLERK Respiratory Rate 16 07/12/2022 11:1 9 AM IMPORT CLERK Oxygen Saturation 96% 07/12/2022 11: 19 AM IMPORT CLERK Inhaled Oxygen Concentration - - Weight 77.5 kg (170 lb 14.4 oz) 023 11:19 AM IMPORT CLERK shoes off Height - - Body Mass Index 30.27 04/09/2022 7:02 PM CDT documented in this encounter Progress Notes * Eren Cr Jr., MD - 07/12/2022 10:45 AM CST Images from the original note were not included. 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 She is accompanied by her today. She continues on 20 mg cabozantinib/placebo daily on study and appear to be tolerating this well. She had restaging CT scans done 06/28/2022 which showed continued stability of her liver and peritoneal disease. There were no new lesion Today she reports feeling well. She continues to have diarrhea. She denies any headaches or seizures. She denies abdominal pain, nausea, vomiting, diarrhea, constipation, fevers, or chills. REVIEW OF SYSTEMS: A complete review of systems was performed and positive and pertinent negative responses are documented in the history of present illness All other systems were negative. PHYSICAL EXAM: ECOG PS: 1 VITALS: BP 152/76 (BP Location: Left arm) Pulse 75 Temp 36.7 ??C (98.1 ??F) (Oral) Resp 16 Wt 77.5 kg (170 lb 14.4 oz) Comment: shoes off SpO2 96% BMI 30.27 kg/m?? GEN: Calm, conversant, well-appearing female in no apparent distress. HEENT: PERRL, sclerae anicteric and non-injected, LYMPH: No cervical, supraclavicular lymphadenopathy CV: RRR, no m/r/g PULM/CHEST: Clear to auscultation bilaterally. No wheezes or rales. Unlabored breathing. ABD: Soft, non tender, non distended, bowel sounds present. well healed abdominal surgical scars. Ostomy in LLQ, stoma pink and healthy. EXT: No LE edema, warm and well-perfused SKIN: No rashes over exposed skin. . NEURO: A&Ox4, painter supervisor grossly intact by conversation, moving all extremities [...] aredisplayed. Labs - Hematology Latest Ref Range 04/19/22 05/17/22 06/14/22 07/12/22 WBC 3.8 - 9.9 K/cumm 4.6 3.6 (A) 3.3 (A) 3.3 (A) Total Hb, POC 11.9 - 15.5 g/dL 11.7 (A) 11.5 (A) 11.4 (A) 12.1 Hct 35.6 - 45.5 % 35.5 (A) 34.6 (A) 34.3 (A) 36.0 Plt 150 - 400 K/cumm 125 (A) 97 (A) 107 (A) 96 (A) Neutrophil abs 1.7 - 6.5 K/cumm 3.2 2.3 2.3 2.0 Lymphocytes, abs 0.8 - 3.3 K/cumm 0.8 0.7 (A) 0.6 (A) 0.5 (A) (A) Abnormal value Comments are available for some flowsheets but are not being displayed. Chem/LFT Lab History Some values may be hidden. Unless noted otherwise, only the newest values recorded on each date aredisplayed. Labs-Chem/LFT Latest Ref Range 04/19/22 05/17/22 06/14/22 07/12/22 Sodium 135 - 145 mmol/L 140 139 139 140 Creatinine 0.60 - 1.10 mg/dL 1.22 (A) 1.10 1.15 (A) 1.11 (A) Bilirubin, total 0.1 - 1.2 mg/dL 0.4 0.5 0.4 0.6 AST 10 - 45 Units/L 28 35 32 34 ALT 7 - 45 Units/L 21 27 22 25 CrCl- Actual Body Weight (Cockcroft-Gault) 49.4 54.9 52.6 55.2 Some values recorded on this date have been omitted. Some abnormal values recorded on this date have been omitted. (A) Abnormal value Comments are available for some flowsheets but are not being displayed. Tumor Marker History Some values may be hidden. Unless noted otherwise, only the newest values recorded on each date aredisplayed. Tumor Markers Latest Ref Range 02/22/22 03/22/22 04/19/22 06/14/22 Chromogranin A <93 ng/mL 874 (A) 1003 (A) 1141 (A) 1093 (A) (A) Abnormal value Comments are available for some flowsheets but are not being displayed. RADIOGRAPHIC/DIAGNOSTIC REVIEW: CT chest abdomen pelvis with contrast 06/28/2022 [...] AND PLAN: Ms. La Chung is a 70 y.o. 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 1. Metastatic neuroendocrine tumor with metastases - We reviewed her scans done 06/28/2022 which showed stable liver lesions. -She continues on Octreotide LAR 30 mg; due for injection today. - I reviewed her labs today and they are adequate to proceed with cycle 12 of CABINET study. Will continue on 20 mg dosing of cabozantinib/placebo. She is agreeable to proceed - Chromogranin A 1093 on 06/14/2022 -She will return for follow up in 4 weeks. - scans to be done in 2-3 months -she would alsolike to have her IVF today. 2. Bone metastases: - on Xgeva. Phos 2.6 today; Ca 10.1 and Creatinine 1.11 -last denosumab 06/14/2022 -will proceed with dose today 3. Diarrhea - prn immodium and lomotil 4. Hypothyroidism with TSH elevated -TSH 04/19/22 increased to 7.34 and on 05/17/2022 is 3.02 - continue levothyroxine at 88 mcg daily -TSH today pending 5. Vitamin D insufficiency/Deficiency: -Vit D 20 on 06/14/2022 - continue Vitamin D 50 000 international units weekly -recheck vitamin D in 09/2022 All of her and questions were answered to their satisfaction and they verbalized understanding. Eren Cr MD Jump to the Problem List Disease Status Documentation for [facility] Neoplastic Disease Neuroendocrine carcinoma (CMS/HCC) (HCC) Cancer Disease Assessment for [facility] Date of diagnosis: 10/03/15 Disease status: stable Reason for disease status: imaging, symptoms, physical exam, lab results Date of cancer disease status assessment: 04/19/22 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) Cancer Disease Assessment for [facility] Date of diagnosis: 10/03/15 Disease status: not evaluated Date of cancer disease status assessment: 06/14/22 Neuro-endocrine carcinoma (CMS/HCC) (HCC) Bone metastasis (CMS/HCC) (HCC) H/O actinic keratosis Neuroendocrine tumor Cancer Disease Assessment for mCODE Date of diagnosis: 10/03/15 Disease status: stable Reason for disease status: imaging Date of cancer disease status assessment: 07/12/22 Cancer Treatment Plan Change for JAIME data: No change in treatment plan RT CLERK documented in this encounter Plan of Treatment Not on file documented as of this encounter Visit Diagnoses Diagnosis Bone metastasis- Primary Secondary malignant neoplasm of bone and bone marrow Neuro-endocrine carcinoma (HCC) Other malignant neoplasm of unspecified site 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
--- OUTSIDE RECORDS SUMMARY | 2024-06-25 22:17 | XMS_ITS | Encounter Summary ---
Author Organization [facility] Address [address] [place] [address] Phone Care Team Providers Care Director Television News Name Role Phone Julio César Briseno MD Primary Care Provider Eren Cr MD Unavailable [phone] Yohana Bowen MD Unavailable Encounter Details Date Type Department Care Team (Late st Contact Info) Description 07/12/2022 Orders Only [facility] [address] [place] [address] Eren Cr MD [address] [place] [address] Neuro-endocrine carcinoma (CMS/HCC) (HCC) (Primary [...] on file Legal Sex Female 2:41 PM PROFESSOR OF 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 STUDIES Gender Identity Not on file Sexual Orientation Straight 02/19/2021 9: 29 AM CDT Occupation Industry Job Start Date Job End Date retired Not on file Not on file Not on file documented as of this encounter Plan of Treatment Not on file documented as of this encounter Results * (ABNORMAL) Chromogranin A (08/07/2022 10:48 AM PROFESSOR OF 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 STUDIES) Chromogranin A 1094(H) <93 ng/mL [facility] Comment: Impaired renal or hepatic function or treatment with proton pump inhibitors may result in artifactual elevations of Chromogranin A. ADDITIONAL INFORMATION This test was developed and its performance characteristics determined by [facility] in a manner consistent with CLIA requirements. [...] a homogeneous time-resolved immunofluorescent assay manufactured by [employer] and performed on the Cube Route Kryptor Compact Plus. ? Values obtained with different assay methods or kits may be different and cannot be used interchangeably. ? Test results cannot be interpreted as absolute evidence for the presence or absence of malignant disease. Test Performed by: [address] [address] Print Project Manager: Immanuel Novak M.D. Ph.D.; CLIA# [id number] Blood 08/07/2022 10:4 8 AM PROFESSOR OF 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 STUDIES 08/07/2022 1:07 PM PROFESSOR OF 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 STUDIES Eren Cr MD LAB BLOOD ORDERABLES Final Re sult Performing Organization Address [facility] [place] [address] * (ABNORMAL) Vitamin D 25 hydroxy (08/07/2022 10:48 AM PROFESSOR OF 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 STUDIES) Vitamin D 25-OH 24(L) 30 - 80 ng/mL [facility] Blood 08/07/2022 10:4 8 AM PROFESSOR OF 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 STUDIES 08/07/2022 11:56 AM PROFESSOR OF 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 STUDIES Eren Cr MD LAB BLOOD ORDERABLES Final Re sult Performing Organization Address [facility] de Phone Number [facility] [place] [address] * (ABNORMAL) Phosphorus (08/07/2022 10:48 AM PROFESSOR OF 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 STUDIES) Pathologist [facility] Phosphorus, pl 2.0(L) 2.3 - 4.5 mg/dL [facility] Comment:Testing performed by : [facility], [address] [place] [address] Blood 08/07/2022 10:4 8 AM PROFESSOR OF 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 STUDIES 08/07/2022 10:50 AM PROFESSOR OF 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 STUDIES Eren Cr MD LAB BLOOD ORDERABLES Final Re sult Performing Organization Address [facility] Co de Phone Number [facility] [place], [place] [id number] * (ABNORMAL) Lipid panel (08/07/2022 10:48 AM PROFESSOR OF 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 STUDIES) Pathologist [facility] Cholesterol 178 30 - 199 mg/dL [facility] Comment: Interpretive Data Ages < [...] Data was last revised on 2018. Triglycerides 229(H) <=149 mg/dL [facility] Comment: Interpretive Data Ages < [...] Data was last revised on 2018. HDL 57 >=40 mg/dL [facility] Comment: Interpretive Data Ages < [...] 2018. LDL, calculated 75 <=129 mg/dL [facility] Comment: Interpretive Data Ages < or = [...] was last revised on 2018. Non-HDL Cholesterol 121 mg/dL [facility] Comment: Interpretive Data Ages < or = [...] last revised on 2018. Chol/HDL ratio 3 [facility] Blood 08/07/2022 10:4 8 AM PROFESSOR OF 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 STUDIES 08/07/2022 11:56 AM PROFESSOR OF 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 STUDIES us Eren Cr MD LAB BLOOD ORDERABLES Final Re sult [facility] Department [place] [address] * Magnesium (08/07/2022 10:48 AM PROFESSOR OF 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 STUDIES) [facility] Magnesium 1.4 1.4 - 2.5 mg/dL [facility] Comment:Testing performed by : [facility], [address] [place] [address] Blood 08/07/2022 10:4 8 AM PROFESSOR OF 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 STUDIES 08/07/2022 10:50 AM PROFESSOR OF 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 STUDIES Eren Cr MD LAB BLOOD ORDERABLES Final Re sult Performing Organization Address [facility] Co de Phone Number [facility] [place] [address] * (ABNORMAL) Comprehensive metabolic panel (08/07/2022 10:48 AM PROFESSOR OF 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 STUDIES) [facility] Sodium 141 135 - 145 mmol/L [facility] Comment:Testing performed by : [address] [address] Potassium, pl 4.2 3.3 - 4.9 mmol/L [facility] Chloride 107 97 - 110 mmol/L [facility] CO2 28 22 - 32 mmol/L [facility] Anion gap 6 2 - 15 mmol/L [facility] BUN 20 8 - 25 mg/dL [facility] Creatinine 1.46(H) 0.60 - 1.10 mg/dL [facility] Glucose 132 70 - 199 mg/dL [facility] Comment: Interpretive Data Fasting glucose [...] 2022. Calcium 9.8 8.5 - 10.3 mg/dL [facility] Bilirubin, total 0.6 0.1 - 1.2 mg/dL [facility] Protein, pl 6.5 6.5 - 8.5 g/dL [facility] Albumin 4.0 3.5 - 5.0 g/dL [facility] Alk phos 63 40 - 130 Units/L [facility] ALT 24 7 - 45 Units/L [facility] AST 34 10 - 45 Units/L [facility] Blood 08/07/2022 10:4 8 AM PROFESSOR OF 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 STUDIES 08/07/2022 10:50 AM PROFESSOR OF 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 STUDIES Eren Cr MD LAB BLOOD ORDERABLES Final Re sult [facility] Department [place] [address] * (ABNORMAL) CBC with auto differential (08/07/2022 10:48 AM PROFESSOR OF 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 STUDIES) WBC 3.4(L) 3.8 - 9.9 K/cumm [facility] Comment:Testing performed by : [address] [address] Hgb 11.9 11.9 - 15.5 g/dL [facility] Comment:Testing performed by : [address] [address] Hct 35.7 35.6 - 45.5 % [facility] Comment:Testing performed by : [address] [address] Plt 100(L) 150 - 400 K/cumm [facility] Comment:Testing performed by : [address] [address] MPV 10.4 9.1 - 12.3 fL [facility] RBC 3.59(L) 3.90 - 5.20 M/cumm [facility] MCV 99.4(H) 81.3 - 96.4 fL [facility] MCH 33.1 27.1 - 33.3 pg [facility] MCHC 33.3 32.3 - 35.7 g/dL [facility] RDW CV 13.9 11.1 - 14.9 % [facility] RDW SD 50.5(H) 35.7 - 48.1 fL [facility] NRBC abs 0.00 0.00 - 0.01 K/cumm [facility] Blood 08/07/2022 10:4 8 AM PROFESSOR OF 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 STUDIES 08/07/2022 10:50 AM PROFESSOR OF 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 STUDIES us Eren Cr MD LAB BLOOD ORDERABLES Final Re sult [facility] Department [place] [address] documented in this encounter Visit Diagnoses Diagnosis Neuro-endocrine carcinoma (HCC)- Primary Other malignant neoplasm of unspecified site 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) Neuroendocrine carcinoma (HCC) Other malignant neoplasm of unspecified site documented in this encounter Orders Appointment Requests Count Last Ordered Date Fi rst Ordered Date ONCBCN CLINIC APPOINTMENT REQUEST 1 023 ONCBCN INFUSION APPT REQUEST 1 08/07/2022 ONCBCN INJECTION APPOINTMENT REQUEST 1 07/10 ONCBCN LAB APPOINTMENT 1 08/07/2022 ONCBCN TAKE HOME STUDY DRUG APPT 1 08/07/19 23 documented in this encounter Care Teams Director Television News Relationship Specialty Start Date End Date Julio César Briseno MD PCP - General 10/01/16 Eren Cr MD Referring Physician Medical Oncology 11/25/18 Yohana Bowen MD Radiation Oncologist Radiation Oncology 11/25/18 documented as of this encounter
--- OUTSIDE RECORDS SUMMARY | 2024-06-25 22:17 | XMS_ITS | Encounter Summary ---
Author Organization [facility] Address [address] [place] [address] Phone Care Team Providers Care Passenger Screener Name Role Phone Julio César Briseno MD Primary Care Provider [phone] Eren Cr MD Unavailable [phone] Yohana Bowen MD Unavailable Reason for Visit * Episode Based Medications (Routine) - Closed Specialty Diagnoses / Procedures Referred By Evelyne bowman Referred To Contact Diagnoses Neuro-endocrine carcinoma (HCC) Procedures study [id number] phase III cabozantinib Eren Cr MD [address] [facility] [address] [place] [address] Phone: tel: fax: [facility] [address] [facility] Advanced Medicine 7th [place] [address] Phone: tel: Referral ID Status Reason Start Date Expiration Date Visits Re quested Visits Authorized [id number] Closed 06/21/2021 06/26/2024 1 99 Encounter Details Date Type Department Care Team (Latest Contact Info) Description 07/12/2022 12:00 PM WHISKEY PROOF READER Research Med Pick-Up/CTRU Credit Historian [facility] [address] [place] [address] Neuro-endocrine carcinoma (CMS/HCC) (HCC) (Primary Dx) Social [...] on file Legal Sex Female 2:41 PM WHISKEY PROOF READER Gender Identity Not on file Sexual Orientation [...] Date First Ordered Date [id number] cabozantinib/pl acebo (2017-08-122/[id number]) tablet 20 mg 1 07/12/2022 Nursing Count Last Ordered Date First Orde red Date ONCBCN STUDY COMMUNICATION 2 1 07/12/2022 ONCBCN TREATMENT PARAMETERS 1 1 07/12/2022 RESEARCH STUDY CLARIFICATION ORDER 1 2022 Appointment Requests Count Last Ordered Date Fi rst Ordered Date ONCBCN TAKE HOME STUDY DRUG APPT 1 07/12/19 23 documented in this encounter Care Teams Passenger Screener Relationship Specialty Start Date End Date Julio César Briseno MD PCP - General 10/01/16 Eren Cr MD Referring Physician Medical Oncology 11/25/18 Yohana Bowen MD Radiation Oncologist Radiation Oncology 11/25/18 documented as of this encounter
--- OUTSIDE RECORDS SUMMARY | 2024-06-25 22:17 | XMS_ITS | Encounter Summary ---
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 Oncology [address] [place] [address] Neuroendocrine carcinoma (CMS/HCC) (HCC) (Primary Dx); 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); Bone metastasis (CMS/HCC) (HCC); Neuro-endocrine carcinoma (CMS/HCC) (HCC); Dehydration Social History Tobacco Use [...] file Legal Sex Female 2:41 PM METAL MACHINE SETTER Gender Identity Not on file Sexual Orientation Straight 02/19/2021 9: 29 AM CDT Occupation Industry Job Start Date Job End Date retired Not on file Not on file Not on file documented as of this encounter Nursing Notes * Hien Pat, RN - 07/12/2022 11:45 AM CST Oncology Nursing Note [facility] La Chung is a 71 y.o. female who presents for IV hydration, Xgeva and Sandostatin injections. Pt reports feeling fair, does have some lightheadedness with walking at times. Diarrhea continues. Pt will also receive Magnesium IV today for Mg+ level of 1.4 today. Pre-treatment Nursing Assessment Nursing Assessment Appetite: Good Diarrhea: Yes (continues with diarrhea, emptying ostomy 7-8 times daily. Taking Lomotil and Imodium. aware.) Constipation: No Last BM Date: 07/12/22 (Colostomy) Existing Patients: Any falls since your last visit?: No (lightheadedness) New Patients: Any falls since your last visit?: N/A Fatigue: Occassional Mouth Sores: Yes (fever blister, using Vicks) Nausea/Vomiting: No Neurological symptoms: No LOC: Alert Orientation: Oriented x4 Behavior: Calm Speech: Clear Language: No aphasia Vision: At baseline Pain: No Peripheral Neuropathy: No Pt states has potential to be ?: N/A Shortness of Breath?: No Lungs auscultated PRN: No Pt is on oxygen?: No Respiratory Effort Characteristics: Dyspnea exertion Skin Condition/Temp: Warm, Dry, No swelling Oral Mucosa Grade: Normal (0) Abdomen: Soft Swelling: No BP: 152/76 Temp: 36.7 ??C (98.1 ??F) Temp src: Oral Pulse: 75 Resp: 16 SpO2: 96 % Weight: 77.5 kg (170 lb 14.4 oz) (shoes off) Pain Score: 0 - No pain Treatment Patient: met treatment parameters Pre blood return: Brisk Lashirley Mejiad tolerated treatment well. Pt also developed headache during infusion, given Tylenol with relief. Patient was frequently observed and monitored throughout [...] Ambulatory Accompanied by: Spouse Discharged To: Home L MACHINE SETTER documented in this encounter Plan [...] (TYLENOL) tablet 650 mg 650 mg, oral, Once, On Lydia 07/12/22 at 1530, For 1 doseIndications:Bone metastasis,Neuro-endo crine carcinoma (HCC) Given 07/12/2022 2:31 PM METAL MACHINE SETTER 650 mg denosumab (XGEVA) subcutaneous syringe 120 mg 120 mg, subcutaneous, Once, On Lydia 07/12/22 at 1245, For 1 dose, Calcium level should be greater than 8 mg/dl Administer injection in upper arm, abdomen or upper thigh Refrigerate. Allow to stand 15 to 30 mins prior to useIndications:Bone metastasis,Neuro-endo crine carcinoma (HCC) Given 07/12/2022 2:53 PM METAL MACHINE SETTER 120 mg Right Lower Abdomen magnesium sulfate 2 g in sodium chloride 0.9% 1,004 mL infusion 500 mL/hr, intravenous, Once, On Lydia 07/12/22 at 1300, For 1 doseIndications:Dehyd ration,Neuroendocrine carcinoma (HCC) New Bag 07/12/2022 12:39 PM METAL MACHINE SETTER 500 mL/hr 500 mL/hr octreotide LAR (SandoSTATIN LAR) extended release intramuscular injection 30 mg 30 mg, intramuscular, Once, On Lydia 07/12/22 at 1245, For 1 dose, Refrigerate. For IM intragluteal administration only- alternate gluteal sites. Shake.Indications:Mal ignant neoplasm metastatic to liver (HCC),Neuroendocrine carcinoma (HCC) Given 07/12/2022 2:53 PM METAL MACHINE SETTER 30 mg Left Ventrogluteal documented in this encounter Orders Medications Ordered That Brett ht Not Have Been Administered Count Last Ordered Date First Ordered Date ondansetron (ZOFRAN) injection 8 mg 1 07/12 Nursing Count Last Ordered Date First Orde red Date ONCBCN NURSING COMMUNICATION [id number] 07/12 ONCBCN NURSING COMMUNICATION [id number] 1 0 07/12/2022 PHYSICIAN COMMUNICATION ORDER 1 07/12/2022 Appointment Requests Count Last Ordered Date Fi rst Ordered Date ONCBCN INJECTION APPOINTMENT REQUEST 1 11/2022 documented in this encounter Care Teams Logging Equipment Mechanic Relationship Specialty Start Date End Date Julio César Briseno MD PCP - General 10/01/16 Eren Cr MD Referring Physician Medical Oncology 11/25/18 Yohana Bowen MD Radiation Oncologist Radiation Oncology 11/25/18 documented as of this encounter
--- OUTSIDE RECORDS SUMMARY | 2024-06-25 22:17 | XMS_ITS | Encounter Summary ---
Author Organization [facility] Address [address] [place] [address] Phone Care Team Providers Care Direct Care Counselor Name Role Phone Julio César Briseno MD Primary Care Provider Eren Cr MD Unavailable [phone] Yohana Bowen MD Unavailable Encounter Details Date Type Department Care Team (Late st Contact Info) Description 07/13/2022 Orders Only [facility] Oncology [address] [place] [address] Eren Cr MD [address] [place], [place] [id number] Social History Tobacco Use Types Packs/Day Years [...] on file Legal Sex Female 2:41 PM SOFTWARE APPLICATIONS 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
--- OUTSIDE RECORDS SUMMARY | 2024-06-25 22:17 | XMS_ITS | Encounter Summary ---
Author Organization [facility] Address [address] [place] [address] Phone Care Team Providers Care Red Lead Burner Name Role Phone Julio César Briseno MD Primary Care Provider [phone] Eren Cr MD Unavailable [phone] Yohana Bowen MD Unavailable Encounter Details Date Type Department Care Team (Late st Contact Info) Description 07/12/2022 Orders Only [facility] Oncology [address] [place] [address] Eren Cr MD [address] [place], [place] [id number] Social History Tobacco Use Types Packs/Day Years [...] on file Legal Sex Female 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
--- OUTSIDE RECORDS SUMMARY | 2024-06-25 22:17 | XMS_ITS | Encounter Summary ---
Author Organization [facility] Address [address] [place] [address] Care Team Providers Care Mobile Device Developer Name Role Phone Julio César Briseno MD Primary Care Provider [phone] Eren Cr MD Unavailable [phone] Yohana Bowen MD Unavailable Encounter Details Date Type Department Care Team (Latest Contact Info) Description 07/05/2022 7:38 AM SOW MANAGER - 07/05/2022 11:59 PM SOW MANAGER Hospital Encounter [facility] ([facility]) [address] [place] [id number] Dehydration (Primary Dx); Neuro-endocrine carcinoma (CMS/HCC) [...] on file Legal Sex Female 2:41 PM SOW MANAGER Gender Identity Not on file Sexual Orientation Straight 02/19/2021 9: 29 AM CDT Occupation Industry Job Start Date Job End Date retired Not on file Not on file Not on file documented as of this encounter Last Filed Vital Signs Vital Sign Reading Time Taken Comments Blood Pressure 123/63 07/05/2022 7:45 AM SOW MANAGER Pulse 71 07/05/2022 7:45 AM SOW MANAGER Temperature 36.5 ??C (97.7 ??F) 07/05/2022 7:45 AM CS T Respiratory Rate 18 07/05/2022 7:45 AM SOW MANAGER Oxygen Saturation 100% 07/05/2022 7:45 AM SOW MANAGER Inhaled Oxygen Concentration - - Weight - [...] capsuleIndicatio ns:supplement Take 1 tablet by mouth tennis director before breakfast 07/04/2016 4 cholecalciferol (VITAMIN D-3) 2,000 unit capsule Take 1 capsule (2,000 Units total) by mouth daily 30 capsule 2 04/25/2019 3 clotrimazole-bet amethasone (LOTRISONE) cream Apply 1 Application topically daily as needed (rash) 4 coenzyme X06-acwakaf E 100-5 mg-unit capsuleIndicatio ns:supplement Take 1 tablet by mouth tennis director before breakfast 4 diphenoxylate-at ropine (LOMOTIL) 2.5-0.025 [...] as needed for rhinitis or allergies 4 INV-WUSM_BJ cabozantinib/maris cebo (2018-02-122/A02 1602) 20 mg tabletIndication s:cancer study Take 1 tablet (20 mg total) by mouth nightly Take on an empty stomach (no food for 2 hours before and 1 hour after each dose).?? Avoid Jas's Wort, grapefruit products and [place] oranges while on treatment. placed on hold 09/26/22 for covid 01/29/2022 4 levothyroxine (SYNTHROID) 88 mcg tabletIndication s:Hypothyroidism due to medication TAKE 1 TABLET (88 MCG TOTAL) BY MOUTH PRODUCT DEVELOPMENT SCIENTIST BEFORE BREAKFAST 30 tablet 1 07/03/2022 3 [...] Nursing Notes * Hola Heredia RN - 07/05/2022 8:15 AM CST Pt arrived to [facility] for IVF. PAC accessed and 1L NS initiated. PAC instilled w/ heparin and de-accessed. Pt ambulatory and discharged to home accompanied by spouse. MANAGER documented in this encounter Plan of Treatment [...] as needed, line care, Starting on Lydia 07/05/22 at 0747, Flush when all medication administered and labs completed for the day.Indications:Dehydration,N euroendocrine carcinoma (HCC) Given 07/05/2022 10:06 AM SOW MANAGER 500 Units sodium chloride 0.9% bolus 1,000 mL 1,000 mL, intravenous, at 500 mL/hr, Administer over 2 Hours, Once, On Lydia 07/05/22 at 0820, For 1 doseIndications:Dehydration,N euroendocrine carcinoma (HCC) New Bag 07/05/2022 7:54 AM SOW MANAGER 1,000 mL 500 mL/hr documented in this encounter Orders Appointment Requests Count Last Ordered Date Fi rst Ordered Date ONCBCN INFUSION APPT REQUEST 1 07/05/2022 documented in this encounter Care Teams Mobile Device Developer Relationship Specialty Start Date End Date Julio César Briseno MD PCP - General 10/01/16 Eren Cr MD Referring Physician Medical Oncology 11/25/18 Yohana Bowen MD Radiation Oncologist Radiation Oncology 11/25/18 documented as of this encounter
--- OUTSIDE RECORDS SUMMARY | 2024-06-25 22:17 | XMS_ITS | Encounter Summary ---
Author Organization [facility] Address [address] [place] [address] Phone Care Team Providers Care Package Drier Name Role Phone Julio César Briseno MD Primary Care Provider Eren Cr MD Unavailable [phone] Yohana Bowen MD Unavailable Encounter Details Date Type Department Care Team (Late st Contact Info) Description 07/13/2022 Orders Only [facility] Oncology [address] [place] [address] Eren Cr MD [address] [facility] [address] [place], [place] [phone] Dehydration (Primary Dx); Neuro-endocrine carcinoma (CMS/HCC) (HCC) [...] on file Legal Sex Female 2:41 PM CERTIFIED 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
--- OUTSIDE RECORDS SUMMARY | 2024-06-25 22:17 | XMS_ITS | Encounter Summary ---
Author Organization [facility] Address [address] [place] [address] Phone Care Team Providers Care Software Sales Executive Name Role Phone Julio César Briseno MD Primary Care Provider [phone] Eren Cr MD Unavailable [phone] Yohana Bowen MD Unavailable Reason for Visit * Episode Based Medications (Routine) - Closed Specialty Diagnoses / Procedures Referred By Evelyne bowman Referred To Contact Diagnoses Neuro-endocrine carcinoma (HCC) Procedures study [id number] phase III cabozantinib Eren Cr MD [address] [facility] [address] [place] [address] Phone: tel: fax: [facility] [address] [facility] Advanced Medicine 7th [place] [address] Phone: tel: Referral ID Status Reason Start Date Expiration Date Visits Re quested Visits Authorized [id number] Closed 06/21/2021 06/26/2024 1 99 Encounter Details Date Type Department Care Team (Latest Contact Info) Description 08/07/2022 10:45 AM BATTERY CONTAINER TESTER ALUMINUM Clinical Support [facility] Oncology [address] [place] [address] Neuro-endocrine carcinoma (CMS/HCC) (HCC) Social History Tobacco [...] file Legal Sex Female 2:41 PM BATTERY CONTAINER TESTER ALUMINUM Gender Identity Not on file Sexual Orientation [...] rst Ordered Date ONCBCN LAB APPOINTMENT 1 08/07/2022 documented in this encounter Care Teams Software Sales Executive Relationship Specialty Start Date End Date Julio César Briseno MD PCP - General 10/01/16 Eren Cr MD Referring Physician Medical Oncology 11/25/18 Yohana Bowen MD Radiation Oncologist Radiation Oncology 11/25/18 documented as of this encounter
--- OUTSIDE RECORDS SUMMARY | 2024-06-25 22:17 | XMS_ITS | Encounter Summary ---
Author Organization [facility] Address [address] [place] [address] Care Team Providers Care Complaint Evaluation Supervisor Name Role Phone Julio César Briseno MD Primary Care Provider [phone] Eren Cr MD Unavailable [phone] Yohana Bowen MD Unavailable Encounter Details Date Type Department Care Team (Latest Contact Info) Description 08/07/2022 8:16 AM HEALTH EDUCATION ASSISTANT - 08/07/2022 11:59 PM HEALTH EDUCATION ASSISTANT Hospital Encounter [address] [address] Neuroendocrine carcinoma (CMS/HCC) (HCC); Malignant neoplasm metastatic [...] file Legal Sex Female 2:41 PM HEALTH EDUCATION ASSISTANT Gender Identity Not on file Sexual [...] capsuleIndicatio ns:supplement Take 1 tablet by mouth hydrogen power plant engineer before breakfast 07/04/2016 4 cholecalciferol (VITAMIN D-3) 2,000 unit capsule Take 1 capsule (2,000 Units total) by mouth daily 30 capsule 2 04/25/2019 3 clotrimazole-bet amethasone (LOTRISONE) cream Apply 1 Application topically daily as needed (rash) 4 coenzyme [id number]-[id number] E 100-5 mg-unit capsuleIndicatio ns:supplement Take 1 tablet by mouth hydrogen power plant engineer before breakfast 4 diphenoxylate-at ropine (LOMOTIL) [...] dose).?? Avoid Jas's Wort, grapefruit products and [place] oranges while on treatment. placed on hold 09/26/22 for covid 01/29/2022 4 levothyroxine (SYNTHROID) 88 mcg tabletIndication s:Hypothyroidism due to medication TAKE 1 TABLET (88 MCG TOTAL) BY MOUTH SALES 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 BILINGUAL BEFORE BREAKFAST 30 tablet 1 07/03/2022 3 [...] Priority Date/Time Associated Diagnosis Comments EGFR STAT 08/07/2022 10:48 AM HEALTH EDUCATION ASSISTANT Neuro-endocrine carcinoma (CMS/HCC) (HCC) DIFFERENTIAL AUTO STAT 08/07/2022 10: 48 AM HEALTH EDUCATION ASSISTANT Neuro-endocrine carcinoma (CMS/HCC) (HCC) CHROMOGRANIN A Routine 08/07/2022 10:48 AM HEALTH EDUCATION ASSISTANT 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) CBC WITH AUTO DIFFERENTIAL STAT 08/07/2022 10:48 AM HEALTH EDUCATION ASSISTANT Neuro-endocrine carcinoma (CMS/HCC) (HCC) VITAMIN D 25 HYDROXY Routine 08/07/2022 10:48 AM HEALTH EDUCATION ASSISTANT 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) PHOSPHORUS Routine 08/07/2022 10:48 AM HEALTH EDUCATION ASSISTANT 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) MAGNESIUM STAT 08/07/2022 10:48 AM HEALTH EDUCATION ASSISTANT Neuro-endocrine carcinoma (CMS/HCC) (HCC) LIPID PANEL Routine 08/07/2022 10:48 AM HEALTH EDUCATION ASSISTANT 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) COMPREHENSIVE METABOLIC PANEL STAT 08/07/2022 10:48 AM HEALTH EDUCATION ASSISTANT Neuro-endocrine carcinoma (CMS/HCC) (HCC) documented in this encounter Results * (ABNORMAL) eGFR (08/07/2022 10:48 AM HEALTH EDUCATION ASSISTANT) eGFR 38(L) 90 - 130 mL/min/1. 73 [...] interpretive data was last reviewed 2021. Blood 08/07/2022 10:4 8 AM HEALTH EDUCATION ASSISTANT 08/07/2022 10:50 AM HEALTH EDUCATION ASSISTANT us Eren Cr MD LAB BLOOD ORDERABLES Final Re sult [facility] Department [place] [address] * (ABNORMAL) Differential, auto (08/07/2022 10:48 AM HEALTH EDUCATION ASSISTANT) Neutrophil abs 2.1 1.7 - 6.5 K/cumm [facility] Comment:Testing performed by : [facility], [address] [facility] [address] Imm gran abs 0.0 0.0 - 0.1 K/cumm [facility] Lymphocyte abs 0.7(L) 0.8 - 3.3 K/cumm [facility] Monocyte abs 0.4 0.2 - 0.8 K/cumm [facility] Eosinophil abs 0.2 0.0 - 0.5 K/cumm [facility] Basophil abs 0.0 0.0 - 0.1 K/cumm [facility] Neutrophil pct 62.0 % [facility] Comment: Interpretive Data Percent cell count reference ranges are not reported, since discordance with absolute values may lead to misinterpretation of CBC data. Current Interpretive Data was last revised on 2017. Imm gran pct 0.3 % [facility] Comment: Interpretive Data Percent cell count reference ranges are not reported, since discordance with absolute values may lead to misinterpretation of CBC data. Current Interpretive Data was last revised on 2017. Lymphocyte pct 19.6 % [facility] Comment: Interpretive Data Percent cell count reference ranges are not reported, since discordance with absolute values may lead to misinterpretation of CBC data. Current Interpretive Data was last revised on 2017. Monocyte pct 10.7 % [facility] Comment: Interpretive Data Percent cell count reference ranges are not reported, since discordance with absolute values may lead to misinterpretation of CBC data. Current Interpretive Data was last revised on 2017. Eosinophil pct 6.8 % [facility] Comment: Interpretive Data Percent cell count reference ranges are not reported, since discordance with absolute values may lead to misinterpretation of CBC data. Current Interpretive Data was last revised on 2017. Basophil pct 0.6 % [facility] Comment: Interpretive Data Percent cell count reference ranges are not reported, since discordance with absolute values may lead to misinterpretation of CBC data. Current Interpretive Data was last revised on 2017. Blood 08/07/2022 10:4 8 AM HEALTH EDUCATION ASSISTANT 08/07/2022 10:50 AM HEALTH EDUCATION ASSISTANT Eren Cr MD LAB BLOOD ORDERABLES Final Re sult [facility] One [facility] Department [place] [address] * (ABNORMAL) CBC with auto differential (08/07/2022 10:48 AM HEALTH EDUCATION ASSISTANT) WBC 3.4(L) 3.8 - 9.9 K/cumm [facility] Comment:Testing performed by : [address] [address] Hgb 11.9 11.9 - 15.5 g/dL [facility] Comment:Testing performed by : [address] [address] Hct 35.7 35.6 - 45.5 % [facility] Comment:Testing performed by : [address] [address] Plt 100(L) 150 - 400 K/cumm [facility] Comment:Testing performed by : [address] [address] MPV 10.4 9.1 - 12.3 fL [facility] RBC 3.59(L) 3.90 - 5.20 M/cumm [facility] MCV 99.4(H) 81.3 - 96.4 fL [facility] MCH 33.1 27.1 - 33.3 pg [facility] MCHC 33.3 32.3 - 35.7 g/dL [facility] RDW CV 13.9 11.1 - 14.9 % [facility] RDW SD 50.5(H) 35.7 - 48.1 fL [facility] NRBC abs 0.00 0.00 - 0.01 K/cumm [facility] Blood 08/07/2022 10:4 8 AM HEALTH EDUCATION ASSISTANT 08/07/2022 10:50 AM HEALTH EDUCATION ASSISTANT us Eren Cr MD LAB BLOOD ORDERABLES Final Re sult [facility] Department [place] [address] * (ABNORMAL) Comprehensive metabolic panel (08/07/2022 10:48 AM HEALTH EDUCATION ASSISTANT) Sodium 141 135 - 145 mmol/L [facility] Comment:Testing performed by : [facility], [address] [place] [address] Potassium, pl 4.2 3.3 - 4.9 mmol/L [facility] Chloride 107 97 - 110 mmol/L [facility] CO2 28 22 - 32 mmol/L [facility] Anion gap 6 2 - 15 mmol/L [facility] BUN 20 8 - 25 mg/dL [facility] Creatinine 1.46(H) 0.60 - 1.10 mg/dL [facility] Glucose 132 70 - 199 mg/dL [facility] Comment: Interpretive Data Fasting glucose >/= 126 [...] Calcium 9.8 8.5 - 10.3 mg/dL [facility] Bilirubin, total 0.6 0.1 - 1.2 mg/dL [facility] Protein, pl 6.5 6.5 - 8.5 g/dL [facility] Albumin 4.0 3.5 - 5.0 g/dL [facility] Alk phos 63 40 - 130 Units/L [facility] ALT 24 7 - 45 Units/L [facility] AST 34 10 - 45 Units/L [facility] Blood 08/07/2022 10:4 8 AM HEALTH EDUCATION ASSISTANT 08/07/2022 10:50 AM HEALTH EDUCATION ASSISTANT Eren Cr MD LAB BLOOD ORDERABLES Final Re sult Performing Organization Address [facility] de Phone Number [facility] Department [place] [address] * Magnesium (08/07/2022 10:48 AM HEALTH EDUCATION ASSISTANT) Magnesium 1.4 1.4 - 2.5 mg/dL [facility] Comment:Testing performed by : [address] [address] Blood 08/07/2022 10:4 8 AM HEALTH EDUCATION ASSISTANT 08/07/2022 10:50 AM HEALTH EDUCATION ASSISTANT Eren Cr MD LAB BLOOD ORDERABLES Final Re sult Performing Organization Address [facility] de Phone Number [facility] Department [place] [address] * (ABNORMAL) Lipid panel (08/07/2022 10:48 AM HEALTH EDUCATION ASSISTANT) Cholesterol 178 30 - 199 mg/dL [facility] Comment: Interpretive Data Ages < or = [...] revised on 2018. Triglycerides 229(H) <=149 mg/dL [facility] Comment: Interpretive Data Ages < or = [...] revised on 2018. HDL 57 >=40 mg/dL [facility] Comment: Interpretive Data Ages < or = [...] on 2018. LDL, calculated 75 <=129 mg/dL [facility] Comment: Interpretive Data Ages < or = [...] revised on 2018. Non-HDL Cholesterol 121 mg/dL [facility] Comment: Interpretive Data Ages < or = [...] last revised on 2018. Chol/HDL ratio 3 [facility] Blood 08/07/2022 10:4 8 AM HEALTH EDUCATION ASSISTANT 08/07/2022 11:56 AM HEALTH EDUCATION ASSISTANT Eren Cr MD LAB BLOOD ORDERABLES Final Re sult [facility] Department [place] [address] * (ABNORMAL) Phosphorus (08/07/2022 10:48 AM HEALTH EDUCATION ASSISTANT) Phosphorus, pl 2.0(L) 2.3 - 4.5 mg/dL [facility] Comment:Testing performed by : [facility], [address] [place] [address] Blood 08/07/2022 10:4 8 AM HEALTH EDUCATION ASSISTANT 08/07/2022 10:50 AM HEALTH EDUCATION ASSISTANT Eren Cr MD LAB BLOOD ORDERABLES Final Re sult [facility] [place] [address] * (ABNORMAL) Vitamin D 25 hydroxy (08/07/2022 10:48 AM HEALTH EDUCATION ASSISTANT) Vitamin D 25-OH 24(L) 30 - 80 ng/mL [facility] Blood 08/07/2022 10:4 8 AM HEALTH EDUCATION ASSISTANT 08/07/2022 11:56 AM HEALTH EDUCATION ASSISTANT Eren Cr MD LAB BLOOD ORDERABLES Final Re sult Performing Organization Address [facility] Co de Phone Number [facility] [place] [address] * (ABNORMAL) Chromogranin A (08/07/2022 10:48 AM HEALTH EDUCATION ASSISTANT) Chromogranin A 1094(H) <93 ng/mL [facility] Comment: Impaired renal or hepatic function or [...] a homogeneous time-resolved immunofluorescent assay manufactured by [employer] and performed on the [employer] Kryptor Compact Plus. ? Values obtained with different assay methods or kits may be different and cannot be used interchangeably. ? Test results cannot be interpreted as absolute evidence for the presence or absence of malignant disease. Test Performed by: [facility] [address] [place] [address] Locomotive Switch Operator: Immanuel Novak M.D. Ph.D.; CLIA# [id number] Blood 08/07/2022 10:4 8 AM HEALTH EDUCATION ASSISTANT 08/07/2022 1:07 PM HEALTH EDUCATION ASSISTANT us Eren Cr MD LAB BLOOD ORDERABLES Final Re sult [facility] One [facility] Department [place] [address] documented in this encounter Visit Diagnoses Diagnosis Neuroendocrine carcinoma (HCC) Other malignant neoplasm of unspecified site Malignant neoplasm metastatic to liver (HCC) Neuro-endocrine carcinoma (HCC) Other malignant neoplasm of unspecified site documented in this encounter Care Teams Complaint Evaluation Supervisor Relationship Specialty Start Date End Date Julio César Briseno MD PCP - General 10/01/16 Eren Cr MD Referring Physician Medical Oncology 11/25/18 Yohana Bowen MD Radiation Oncologist Radiation Oncology 11/25/18 documented as of this encounter
--- OUTSIDE RECORDS SUMMARY | 2024-06-25 22:17 | XMS_ITS | Encounter Summary ---
Author Organization [facility] Address [facility] [place] [address] Care Team Providers Care Dowel Setting Machine Operator Name Role Phone Julio César Briseno MD Primary Care Provider [phone] Eren Cr MD Unavailable [phone] Yohana Bowen MD Unavailable Reason for Visit * Reason Comments OP Infusion Encounter Details Date Type Department Care Team (Latest Contact Info) Description 07/19/2022 7:29 AM RETAIL STOCK CLERK - 07/19/2022 11:59 PM RETAIL STOCK CLERK Hospital Encounter [facility] ([facility]) [address] [place] [phone] Dehydration (Primary Dx); Neuro-endocrine carcinoma (CMS/HCC) [...] on file Legal Sex Female 2:41 PM RETAIL STOCK CLERK Gender Identity Not on file Sexual Orientation Straight 02/19/2021 9: 29 AM CDT Occupation Industry Job Start Date Job End Date retired Not on file Not on file Not on file documented as of this encounter Last Filed Vital Signs Vital Sign Reading Time Taken Comments Blood Pressure 136/54 07/19/2022 7:34 AM RETAIL STOCK CLERK Pulse 87 07/19/2022 7:34 AM RETAIL STOCK CLERK Temperature 36.9 ??C (98.4 ??F) 07/19/2022 7:34 AM CS T Respiratory Rate 18 07/19/2022 7:34 AM RETAIL STOCK CLERK Oxygen Saturation 100% 07/19/2022 7:34 AM RETAIL STOCK CLERK Inhaled Oxygen Concentration - - Weight - [...] capsuleIndicatio ns:supplement Take 1 tablet by mouth stewardess supervisor before breakfast 07/04/2016 4 cholecalciferol (VITAMIN D-3) 2,000 unit capsule Take 1 capsule (2,000 Units total) by mouth daily 30 capsule 2 04/25/2019 3 clotrimazole-bet amethasone (LOTRISONE) cream Apply 1 Application topically daily as needed (rash) 4 coenzyme A84-moulffm E 100-5 mg-unit capsuleIndicatio ns:supplement Take 1 tablet by mouth stewardess supervisor before breakfast 4 diphenoxylate-at ropine (LOMOTIL) [...] dose).?? Avoid Jas's Wort, grapefruit products and [place] oranges while on treatment. placed on hold 09/26/22 for covid 01/29/2022 4 levothyroxine (SYNTHROID) 88 mcg tabletIndication s:Hypothyroidism due to medication TAKE 1 TABLET (88 MCG TOTAL) BY MOUTH UTILITY AGENT BEFORE BREAKFAST 30 tablet 1 07/03/2022 3 [...] in this encounter Nursing Notes * Elissa Lopez, [place] - 07/19/2022 7:30 AM CST Patient arrived to the [facility] for hydration. VSS. PAC accessed per protocol. 1L NS given over 2hrs. PAC hep locked and de-accessed per protocol. [place] STOCK CLERK documented in this encounter Plan of [...] as needed, line care, Starting on Lydia 07/19/22 at 0730, Flush when all medication administered and labs completed for the day.Indications:Dehydration,N euroendocrine carcinoma (HCC) Given 07/19/2022 9:44 AM RETAIL STOCK CLERK 500 Units sodium chloride 0.9% bolus 1,000 mL 1,000 mL, intravenous, at 500 mL/hr, Administer over 2 Hours, Once, On Lydia 07/19/22 at 0805, For 1 doseIndications:Dehydration,N euroendocrine carcinoma (HCC) New Bag 07/19/2022 7:44 AM RETAIL STOCK CLERK 1,000 mL 500 mL/hr documented in this encounter Orders Medications Ordered That Brett ht Not Have Been Administered Count Last Ordered Date First Ordered Date sodium chloride 0.9% bolus 1,000 mL 1 07/19 Appointment Requests Count Last Ordered Date Fi rst Ordered Date ONCBCN INFUSION APPT REQUEST 1 07/19/2022 documented in this encounter Care Teams Dowel Setting Machine Operator Relationship Specialty Start Date End Date Julio César Briseno MD PCP - General 10/01/16 Eren Cr MD Referring Physician Medical Oncology 11/25/18 Yohana Bowen MD Radiation Oncologist Radiation Oncology 11/25/18 documented as of this encounter
--- OUTSIDE RECORDS SUMMARY | 2024-06-25 22:17 | XMS_ITS | Encounter Summary ---
Author Organization [facility] Address [address] [place] [address] Phone Care Team Providers Care Teacher Dancing Name Role Phone Julio César Briseno MD Primary Care Provider Eren Cr MD Unavailable [phone] Yohana Bowen MD Unavailable Reason for Visit * Reason Onset Date Comments Patient issue/concern 08/01/2022 Encounter Details Date Type Department Care Team (Late st Contact Info) Description 08/01/2022 Telephone [facility] [address] [place] [address] Medical Office Building [address] [place] [address] Delfina Galloway, A Patient issue/concern Social History Tobacco Use Types Packs/Day Years [...] on file Legal Sex Female 2:41 PM BAKESHOP CLEANER Gender Identity Not on file Sexual Orientation Straight 02/19/2021 9: 29 AM CDT Occupation Industry Job Start Date Job End Date retired Not on file Not on file Not on file documented as of this encounter Miscellaneous Notes * Telephone Encounter - Delfina Galloway RMA - 08/01/2022 4:11 PM BAKESHOP CLEANER ----- Message from Sola OttGiovanna sent at 08/01/2022 10:29 AM BAKESHOP CLEANER ----- Regarding: rectal pain/pressure Hi Delfina, This mutual patient of Dr. Cr and Dr. Reeves with neuroendocrine tumor post colectomy 2019 is reporting rectal pain and pressure with some mucus and blood causing her to pant to push. Patient had this in April and was admitted (see discharge summary below). Would you be able to get this patient in for evaluation with Dr. Reeves? Thank you Sola 04/10/2022 Proctitis Presented with 1 day of severe rectal pain and the sensation of needing to defecate. Took suppository and enema (in setting of ostomy) at home without improvement. CT A/P showed interval increased wall thickening and submucosal edema of the rectum with surrounding stranding of the perirectal fat, consistent with proctitis, no findings of bowel obstruction. Empiric Vanc/Cefe/Flagyl given in ED, consolidated to CTX and Flagyl. Pain had decreased the following morning. She was evaluated by her primary oncologist, Dr. Cr. She was discharged home with PO ciprofloxacin and flagyl x 7 days. Patienthas oncology follow up scheduled for next week. Patient follows with [facility] (Dr. Reeves) outpatient. Can refer for further assessment such as anoscopy outpatient if this remains an issue.??She was given a small amount of oxycodone to take prn at home for pain. SHOP CLEANER * Telephone Encounter - Delfina Galloway RMA - 08/01/2022 4:11 PM BAKESHOP CLEANER Spoke with patient about rectal pain and pressure from mucus. Discussed doing a fleet enema to help pass the mucus. She may need to do these every few month whenshe feels the rectal pressure/urge to have a bowel movement. Call me back if this does not help and I will get her scheduled for an office visit. SHOP CLEANER documented in this encounter Plan of Treatment Not on file documented as of this encounter Visit Diagnoses Not on filedocumented in this encounter Care Teams Teacher Dancing Relationship Specialty Start Date End Date Julio César Briseno MD PCP - General 10/01/16 Eren Cr MD Referring Physician Medical Oncology 11/25/18 Yohana Bowen MD Radiation Oncologist Radiation Oncology 11/25/18 documented as of this encounter
--- OUTSIDE RECORDS SUMMARY | 2024-06-25 22:17 | XMS_ITS | Encounter Summary ---
Author Organization [facility] Address [address] [place] [address] Phone Care Team Providers Care Community Mental Health Social Worker Name Role Phone Julio César Briseno MD Primary Care Provider Eren Cr MD Unavailable [phone] Yohana Bowen MD Unavailable Encounter Details Date Type Department Care Team (Late st Contact Info) Description 07/12/2022 Orders Only [facility] [address] [place] [address] Eren Cr MD [address] [place], [place] [id number] Social History Tobacco Use Types Packs/Day Years [...] on file Legal 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 Gender Identity Not on file Sexual Orientation Straight 02/19/2021 9: 29 AM CDT Occupation Industry Job Start Date Job End Date retired Not on file Not on file Not on file documented as of this encounter Plan of Treatment Not on file documented as of this encounter Visit Diagnoses Not on filedocumented in this encounter Care Teams Community Mental Health Social Worker Relationship Specialty Start Date End Date Julio César Briseno MD PCP - General 10/01/16 Eren Cr MD Referring Physician Medical Oncology 11/25/18 Yohana Bowen MD Radiation Oncologist Radiation Oncology 11/25/18 documented as of this encounter
--- OUTSIDE RECORDS SUMMARY | 2024-06-25 22:17 | XMS_ITS | Encounter Summary ---
Author Organization [facility] Address [address] [place] [address] Phone Care Team Providers Care Baker Chef Name Role Phone Julio César Briseno MD Primary Care Provider [phone] Eren Cr MD Unavailable [phone] Yohana Bowen MD Unavailable Reason for Visit * Episode Based Medications (Routine) - Closed Specialty Diagnoses / Procedures Referred By Evelyne bowman Referred To Contact Diagnoses Neuro-endocrine carcinoma (HCC) Procedures study [id number] phase III cabozantinib Eren Cr MD [address] [facility] [address] [place] [address] Phone: tel: fax: [facility] [address] [facility] Advanced Medicine 7th [place] [address] Phone: tel: Referral ID Status Reason Start Date Expiration Date Visits Re quested Visits Authorized [id number] Closed 06/21/2021 06/26/2024 1 99 Encounter Details Date Type Department Care Team (Late st Contact Info) Description 08/07/2022 11:15 AM SUPERANNUATION CLERK Office Visit [facility] [address] [place] [address] Eren Cr MD [address] [facility] [address] [place] [address] Neuro-endocrine carcinoma (CMS/HCC) (HCC) (Primary Dx); 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); Bone metastasis (CMS/HCC) (HCC); Neuroendocrine carcinoma (CMS/HCC) (HCC); Dehydration Social History Tobacco [...] on file Legal Sex Female 2:41 PM SUPERANNUATION CLERK Gender Identity Not on file Sexual Orientation Straight 02/19/2021 9: 29 AM CDT Occupation Industry Job Start Date Job End Date retired Not on file Not on file Not on file documented as of this encounter Last Filed Vital Signs Vital Sign Reading Time Taken Comments Blood Pressure 129/72 08/07/2022 11:56 AM SUPERANNUATION CLERK Pulse 78 08/07/2022 11:56 AM SUPERANNUATION CLERK Temperature 36.3 ??C (97.3 ??F) 08/07/2022 11:[address] Respiratory Rate 16 08/07/2022 11:56 AM SUPERANNUATION CLERK Oxygen Saturation 96% 08/07/2022 11:56 AM SUPERANNUATION CLERK Inhaled Oxygen Concentration - - Weight 77.4 kg (170 lb 9.6 oz) 08/07/2022 11:56 AM SUPERANNUATION CLERK Height - - Body Mass Index 30.22 04/09/2022 7:02 PM CDT documented in this encounter Progress Notes * Eren Cr Jr., MD - 08/07/2022 11:15 AM CST Images from the original note were not included. MEDICAL ONCOLOGY OUTPATIENT ROV NOTE DATE OF VISIT: 08/07/2022 DIAGNOSIS: well differentiated neuroendocrine tumor of ileum [...] appear to be tolerating this well. She noted rectal pain and pressure with some mucus similar to her symptoms back in April 2022. Fleets enemas were recommended and her syptoms had subsided and improved. Today she reports feeling well. She denies any headaches or seizures. She denies abdominal pain, nausea, vomiting, constipation, fevers, or chills. REVIEW OF SYSTEMS: A complete review of systems was performed and positive and pertinent negative responses are documented in the history of present illness All other systems were negative. PHYSICAL EXAM: ECOG PS: 1 VITALS: BP 129/72 (BP Location: Left arm) Pulse 78 Temp 36.3 ??C (97.3 ??F) (Temporal) Resp 16 Wt 77.4 kg (170 lb 9.6 oz) SpO2 96% BMI 30.22 kg/m?? GEN: Calm, conversant, well-appearing female in [...] rashes over exposed skin. . NEURO: A&Ox4, biometric fingerprinting technician grossly intact by conversation, moving all extremities [...] aredisplayed. Labs - Hematology Latest Ref Range 05/17/22 06/14/22 07/12/22 08/07/22 WBC 3.8 - 9.9 K/cumm 3.6 (A) 3.3 (A) 3.3 (A) 3.4 (A) Total Hb, POC 11.9 - 15.5 g/dL 11.5 (A) 11.4 (A) 12.1 11.9 Hct 35.6 - 45.5 % 34.6 (A) 34.3 (A) 36.0 35.7 Plt 150 - 400 K/cumm 97 (A) 107 (A) 96 (A) 100 (A) Neutrophil abs 1.7 - 6.5 K/cumm 2.3 2.3 2.0 2.1 Lymphocytes, abs 0.8 - 3.3 K/cumm 0.7 (A) 0.6 (A) 0.5 (A) 0.7 (A) (A) Abnormal value Comments are available for some flowsheets but are not being displayed. Chem/LFT Lab History Some values may be hidden. Unless noted otherwise, only the newest values recorded on each date aredisplayed. Labs-Chem/LFT Latest Ref Range 05/17/22 06/14/22 07/12/22 08/07/22 Sodium 135 - 145 mmol/L 139 139 140 141 Creatinine 0.60 - 1.10 mg/dL 1.10 1.15 (A) 1.11 (A) 1.46 (A) Bilirubin, total 0.1 - 1.2 mg/dL 0.5 0.4 0.6 0.6 AST 10 - 45 Units/L 35 32 34 34 ALT 7 - 45 Units/L 27 22 25 24 CrCl- Actual Body Weight (Cockcroft-Gault) 54.9 52.6 55.2 41.9 Some values recorded on this date have been omitted. Some abnormal values recorded on this date have been omitted. (A) Abnormal value Comments are available for some flowsheets but are not being displayed. Tumor Marker History Some values may be hidden. Unless noted otherwise, only the newest values recorded on each date aredisplayed. Tumor Markers Latest Ref Range 03/22/22 04/19/22 06/14/22 07/12/22 Chromogranin A <93 ng/mL 1003 (A) 1141 (A) 1093 (A) 1006 (A) (A) Abnormal value Comments are available [...] care. 1. Metastatic neuroendocrine tumor with metastases -She continues on Octreotide LAR 30 mg; due for injection today. - I reviewed her labs today and they are adequate to proceed with cycle 14 of CABINET study. Will continue on 20 mg dosing of cabozantinib/placebo. She is agreeable to proceed with treatment. - Chromogranin A 1006 on 07/12/2022 -She will return for follow up in 4 weeks. - scans to be done in 1-2 months 2. Bone metastases: - on Xgeva. Phos 2 today; Ca 9.8 and Creatinine 1.46 -last denosumab 07/12/2022 -will hold dose today 3. Diarrhea - prn immodium [...] the Problem List Disease Status Documentation for [facility] Neoplastic Disease Neuroendocrine carcinoma (CMS/HCC) (HCC) Cancer Disease Assessment for mCODE Date of diagnosis: 10/03/15 Disease status: not evaluated Date of cancer disease status assessment: 08/07/22 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) [...] assessment: 07/12/22 [facility] No change in treatment plan RANNUATION CLERK documented in this encounter Plan of Treatment Not on file documented as of this encounter Results * Magnesium (09/06/2022 1:57 PM SUPERANNUATION CLERK) Magnesium 1.4 1.4 - 2.5 mg/dL [facility] Comment:Testing performed by : [facility], [address] [place] [id number] Blood 09/06/2022 1:57 PM SUPERANNUATION CLERK 09/06/2022 1:59 PM SUPERANNUATION CLERK us Eren Cr MD LAB BLOOD ORDERABLES Final Re sult [facility] One [facility] Department [place] [address] * (ABNORMAL) Chromogranin A (09/06/2022 1:57 PM SUPERANNUATION CLERK) Chromogranin A 1202(H) <93 ng/mL [facility] Comment: Impaired renal or hepatic function or treatment with proton pump inhibitors may result in artifactual elevations of Chromogranin A. ADDITIONAL INFORMATION This test was developed and its performance characteristics determined by [facility] in a manner consistent with CLIA [...] a homogeneous time-resolved immunofluorescent assay manufactured by [employer] and performed on the [employer]. ? Values obtained with different assay methods or kits may be different and cannot be used interchangeably. ? Test results cannot be interpreted as absolute evidence for the presence or absence of malignant disease. Test Performed by: [facility] Laboratories - [facility] [address] [place] [address] Knock Out Hand: Immanuel Novak M.D. Ph.D.; CLIA# [id number] Blood 09/06/2022 1:57 PM SUPERANNUATION CLERK 09/06/2022 6:00 PM SUPERANNUATION CLERK Eren Cr MD LAB BLOOD ORDERABLES Final Re sult [facility] One [facility] Department [place] [address] * (ABNORMAL) Comprehensive metabolic panel (09/06/2022 1:57 PM SUPERANNUATION CLERK) Pathologist [facility] Sodium 139 135 - 145 mmol/L [facility] Comment:Testing performed by : [facility], [address] [place] [address] Potassium, pl 4.4 3.3 - 4.9 mmol/L [facility] Chloride 108 97 - 110 mmol/L [facility] CO2 26 22 - 32 mmol/L [facility] Anion gap 5 2 - 15 mmol/L [facility] BUN 21 8 - 25 mg/dL [facility] Creatinine 1.59(H) 0.60 - 1.10 mg/dL [facility] Glucose 81 70 - 199 mg/dL [facility] Comment: Interpretive Data Fasting glucose >/= [...] 2022. Calcium 10.1 8.5 - 10.3 mg/dL [facility] Bilirubin, total 0.4 0.1 - 1.2 mg/dL [facility] Protein, pl 6.5 6.5 - 8.5 g/dL [facility] Albumin 4.0 3.5 - 5.0 g/dL [facility] Alk phos 65 40 - 130 Units/L [facility] ALT 24 7 - 45 Units/L [facility] AST 33 10 - 45 Units/L [facility] Blood 09/06/2022 1:57 PM SUPERANNUATION CLERK 09/06/2022 1:59 PM SUPERANNUATION CLERK Eren Cr MD LAB BLOOD ORDERABLES Final Re sult [facility] One [facility] [place] [address] * (ABNORMAL) CBC with auto differential (09/06/2022 1:57 PM SUPERANNUATION CLERK) Pathologist [facility] WBC 4.0 3.8 - 9.9 K/cumm [facility] Comment:Testing performed by : [address] [address] Hgb 11.3(L) 11.9 - 15.5 g/dL [facility] Comment:Testing performed by : [address] [address] Hct 33.2(L) 35.6 - 45.5 % [facility] Comment:Testing performed by : [address] [address] Plt 102(L) 150 - 400 K/cumm [facility] Comment:Testing performed by : [address] [address] MPV 10.3 9.1 - 12.3 fL [facility] RBC 3.41(L) 3.90 - 5.20 M/cumm [facility] MCV 97.4(H) 81.3 - 96.4 fL [facility] MCH 33.1 27.1 - 33.3 pg [facility] MCHC 34.0 32.3 - 35.7 g/dL [facility] RDW CV 13.8 11.1 - 14.9 % [facility] RDW SD 48.6(H) 35.7 - 48.1 fL [facility] NRBC abs 0.00 0.00 - 0.01 K/cumm [facility] Blood 09/06/2022 1:57 PM SUPERANNUATION CLERK 09/06/2022 1:59 PM SUPERANNUATION CLERK Eren Cr MD LAB BLOOD ORDERABLES Final Re sult Performing Organization Address City/[facility]/ZIP Co de Phone Number [facility] [place] [address] * (ABNORMAL) Vitamin D 25 hydroxy (09/06/2022 1:57 PM SUPERANNUATION CLERK) Pathologist [facility] Vitamin D 25-OH 21(L) 30 - 80 ng/mL [facility] Blood 09/06/2022 1:57 PM SUPERANNUATION CLERK 09/06/2022 5:54 PM SUPERANNUATION CLERK Eren Cr MD LAB BLOOD ORDERABLES Final Re sult Performing Organization Address [facility] Co de Phone Number [place] [facility] [place] [address] * Phosphorus (09/06/2022 1:57 PM SUPERANNUATION CLERK) [facility] Phosphorus, pl 2.5 2.3 - 4.5 mg/dL [facility] Comment:Testing performed by : [facility], [address] [place] [address] Blood 09/06/2022 1:57 PM SUPERANNUATION CLERK 09/06/2022 1:59 PM SUPERANNUATION CLERK Eren Cr MD LAB BLOOD ORDERABLES Final Re sult Performing Organization Address [facility] Co de Phone Number [place], [place] [id number] * (ABNORMAL) Lipid panel (09/06/2022 1:57 PM SUPERANNUATION CLERK) Cholesterol 172 30 - 199 mg/dL [facility] Comment: Interpretive Data Ages < or [...] revised on 2018. Triglycerides 281(H) <=149 mg/dL [facility] Comment: Interpretive Data Ages < or [...] revised on 2018. HDL 52 >=40 mg/dL [facility] Comment: Interpretive Data Ages < or [...] on 2018. LDL, calculated 64 <=129 mg/dL [facility] Comment: Interpretive Data Ages < or [...] revised on 2018. Non-HDL Cholesterol 120 mg/dL [facility] Comment: Interpretive Data Ages < or [...] revised on 2018. Chol/HDL ratio 3 [facility] Blood 09/06/2022 1:57 PM SUPERANNUATION CLERK 09/06/2022 5:54 PM SUPERANNUATION CLERK Eren Cr MD LAB BLOOD ORDERABLES Final Re sult Performing Organization Address [facility] de Phone Number [facility] Department [place] [address] * Protein / creatinine ratio, urine, random (09/06/2022 1:55 PM SUPERANNUATION CLERK) Protein, ur, quant 15.9 mg/dL [facility] Comment: Interpretive Data No reference range established. Current interpretive data was last revised 2018. Creatinine Ur 229.1 mg/dL [facility] Comment: Interpretive Data No reference range established. Current interpretive data was last revised 2018. Protein/creatinin e ratio 69.4 0.0 - 180.0 mg/g CR [facility] Urine 09/06/2022 1:55 PM SUPERANNUATION CLERK 09/06/2022 4:03 PM SUPERANNUATION CLERK Eren Cr MD LAB URINE ORDERABLES Final Re sult Performing Organization Address [facility] Co de Phone Number [facility] Department [place] [address] documented in this encounter Visit Diagnoses Diagnosis [...] Date ONCBCN CLINIC APPOINTMENT REQUEST 2 023 08/07/2022 ON[facility] INFUSION APPT REQUEST 3 09/06/2022 08/16/2022 ON[facility]N INJECTION APPOINTMENT REQUEST 1 08/2022 ON[facility]N LAB APPOINTMENT 1 09/06/2022 ON[facility]N TAKE HOME STUDY DRUG APPT 1 09/07/19 documented in this encounter Care Teams Baker Chef Relationship Specialty Start Date End Date Julio César Briseno MD PCP - General 10/01/16 Eren Cr MD Referring Physician Medical Oncology 11/25/18 Yohana Bowen MD Radiation Oncologist Radiation Oncology 11/25/18 documented as of this encounter
--- OUTSIDE RECORDS SUMMARY | 2024-06-25 22:18 | XMS_ITS | Encounter Summary ---
Author Organization [facility] Address [address] [place] [address] Phone Care Team Providers Care Service Coordinator Elderly Facility Name Role Phone Julio César Briseno MD Primary Care Provider [phone] Eren Cr MD Unavailable [phone] Yohana Bowen MD Unavailable Reason for Referral * Diagnostic Imaging (Routine) - Closed Specialty Diagnoses / Procedures Referred By Evelyne bowman Referred To Contact Radiology Diagnoses Primary malignant neuroendocrine tumor of ileum (HCC) Procedures IR Contrast Injection Evaluation Central Venous Access Device Consult to Interventional Radiology Eren Cr MD [address] [place] [address] Phone: tel: fax: 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) (Primary Dx) Social History Tobacco [...] on file Legal Sex Female 2:41 PM CD MANUFACTURING SUPERVISOR Gender Identity Not on file Sexual Orientation Straight 02/19/2021 9: 29 AM CDT Occupation Industry Job Start Date Job End Date retired Not on file Not on file Not on file documented as of this encounter Plan of Treatment Not on file documented as of this encounter Results * IR Contrast Injection Evaluation Central Venous Access Device (06/12/2022 12:34 PM CD MANUFACTURING SUPERVISOR) Anatomical Region Laterality Modality Body N/A Radio Fluoroscop y 06/12/2022 2:39 PM CD MANUFACTURING SUPERVISOR Impressions 06/12/2022 4:56 PM CD MANUFACTURING SUPERVISOR Right chest port in appropriate position without evidence of fibrin sheath. ??The port flushed without difficulty, and after forceful flushes through the port it also aspirated without difficulty. PLAN: No follow-up needed unless new problems develop at the port Dictated by: Julio Klein M.D. The radiology attending physician has personally reviewed this study, and had reviewed and/or edited this written report and agrees with it. Electronically signed by: Callie Mills M.D. 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 ATTENDING PRESENCE: Callie Mills M.D., the attending radiologist was present from the beginning to the end of the procedure. ?? SEDATION: ??The patient did not require conscious sedation for the procedure. TECHNIQUE: ??The risks, benefits and alternatives were discussed and informed consent was obtained. Prior to beginning the procedure, Heber Protocol was performed to confirm the patient's identity and the planned procedure. ??For procedures that utilize fluoroscopy, the fluoroscopy time has been recorded in the electronic medical record. The patient's existing right chest port was accessed and injected with contrast and multiple fluoroscopic images were obtained. ??It was difficult to aspirate from the port; however, after a forceful injection of 10 mL normal saline, the port aspirated without difficulty. ??Following imaging the catheter was flushed with heparin 100U/ml. ESTIMATED BLOOD LOSS: Minimal. CONDITION: Stable DISCHARGED TO: Home FINDINGS: Contrast injection showed right internal jugular vein central venous port with tip terminating in the superior cavoatrial junction. ??There is brisk antegrade flow of contrast through the catheter. ??No evidence of fibrin sheath. ??After forcefully flushing with normal saline, the port aspirated without difficulty. Procedure Note Callie Mills MD - 06/12/2022 EXAMINATION: CENTRAL VENOUS PORT CHECK HISTORY/INDICATION: 71-year-old woman with carcinoid tumor status post right internal jugular vein central venous port placement on 09/14/2021 which does not aspirate well. ATTENDING PRESENCE: Callie Mills M.D., the attending radiologist was present from the beginning to the end of the procedure. SEDATION: The patient did not require conscious sedation for the procedure. TECHNIQUE: The risks, benefits and alternatives were discussed and informed consent was obtained. Prior to beginning the procedure, Heber Protocol was performed to confirm the patient's identity and the planned procedure. For procedures that utilize fluoroscopy, the fluoroscopy time has been recorded in the electronic medical record. The patient's existing right chest port was accessed and injected with contrast and multiple fluoroscopic images were obtained. It was difficult to aspirate from the port; however, after a forceful injection of 10 mL normal saline, the port aspirated without difficulty. Following imaging the catheter was flushed with heparin 100U/ml. ESTIMATED BLOOD LOSS: Minimal. CONDITION: Stable DISCHARGED TO: Home FINDINGS: Contrast injection showed right internal jugular vein central venous port with tip terminating in the superior cavoatrial junction. There is brisk antegrade flow of contrast through the catheter. No evidence of fibrin sheath. After forcefully flushing with normal saline, the port aspirated without difficulty. IMPRESSION: Right chest port in appropriate position without evidence of fibrin sheath. The port flushed without difficulty, and after forceful flushes through the port it also aspirated without difficulty. PLAN: No follow-up needed unless new problems develop at the port Dictated by: Julio Klein M.D. The radiology attending physician has personally reviewed this study, and had reviewed and/or edited this written report and agrees with it. Electronically signed by: Callie Mills M.D. us Eren Cr MD IMG IR PROCEDURES Final Resul t documented in this encounter Visit Diagnoses Diagnosis Primary malignant neuroendocrine tumor of ileum (HCC)- Primary Primary malignant neuroendocrine tumor of ileum (HCC) documented in this encounter Care Teams Service Coordinator Elderly Facility Relationship Specialty Start Date End Date Julio César Briseno MD PCP - General 10/01/16 Eren Cr MD Referring Physician Medical Oncology 11/25/18 Yohana Bowen MD Radiation Oncologist Radiation Oncology 11/25/18 documented as of this encounter
--- OUTSIDE RECORDS SUMMARY | 2024-06-25 22:18 | XMS_ITS | Encounter Summary ---
Author Organization [facility] Address [address] [place] [address] Phone Care Team Providers Care Glove Cleaner Name Role Phone Julio César Briseno MD Primary Care Provider [phone] Eren Cr MD Unavailable [phone] Yohana Bowen MD Unavailable Reason for Visit * Episode Based Medications (Routine) - Closed Specialty Diagnoses / Procedures Referred By Evelyne bowman Referred To Contact Diagnoses Neuro-endocrine carcinoma (HCC) Procedures study [id number] phase III cabozantinib Eren Cr MD [address] [facility] [address] [place] [address] Phone: tel: fax: [facility] [address] [facility] Advanced Medicine 7th [place] [address] Phone: tel: Referral ID Status Reason Start Date Expiration Date Visits Re quested Visits Authorized [id number] Closed 06/21/2021 06/26/2024 1 99 Encounter Details Date Type Department Care Team (Late st Contact Info) Description 05/17/2022 11:45 AM FIREPROOF DOOR ASSEMBLER Office Visit [facility] [address] [place] [address] Eren Cr MD [address] [facility] [address] [place] [address] 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) (Primary Dx); 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); Bone metastasis (CMS/HCC) (HCC); Neuro-endocrine carcinoma (CMS/HCC) (HCC); Neuroendocrine carcinoma (CMS/HCC) (HCC); Dehydration [...] on file Legal Sex Female 2:41 PM FIREPROOF DOOR ASSEMBLER Gender Identity Not on file Sexual Orientation Straight 02/19/2021 9: 29 AM CDT Occupation Industry Job Start Date Job End Date retired Not on file Not on file Not on file documented as of this encounter Last Filed Vital Signs Vital Sign Reading Time Taken Comments Blood Pressure 149/76 05/17/2022 12:40 PM FIREPROOF DOOR ASSEMBLER Pulse 84 05/17/2022 12:40 PM FIREPROOF DOOR ASSEMBLER Temperature 36.2 ??C (97.1 ??F) 05/17/2022 12:[address] Respiratory Rate 16 05/17/2022 12:40 PM FIREPROOF DOOR ASSEMBLER Oxygen Saturation 96% 05/17/2022 12:40 PM FIREPROOF DOOR ASSEMBLER Inhaled Oxygen Concentration - - Weight 76.4 kg (168 lb 6.4 oz) 05/17/2022 12:40 PM FIREPROOF DOOR ASSEMBLER Height - - Body Mass Index 29.83 04/09/2022 7:02 PM CDT documented in this encounter Progress Notes * Eren Cr Jr., MD - 05/17/2022 11:45 AM CST Images from the original note were not included. MEDICAL ONCOLOGY OUTPATIENT ROV NOTE DATE OF VISIT: 05/17/2022 DIAGNOSIS: well differentiated neuroendocrine tumor of ileum [...] lesions increased. 22. 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 She is accompanied by her today. She had been dose reduced due to diarrhea and now on 20 mg cabozantinib daily.Octreotide injection due today. Today she reports feeling fair. She denies any further diarrhea. Now with complaints of hearing loss for which she was seen by her ENT and also blurring of vision, mainly peripheral vision. She denies any headaches or seizures. She denies abdominal pain, nausea, vomiting, diarrhea, constipation, fevers, or chills. REVIEW OF SYSTEMS: A complete review of systems was performed and positive and pertinent negative responses are documented in the history of present illness All other systems were negative. PHYSICAL EXAM: ECOG PS: 1 VITALS: BP 149/76 Pulse 84 Temp 36.2 ??C (97.1 ??F) (Temporal) Resp 16 Wt 76.4 kg (168 lb 6.4 oz) SpO2 96% BMI 29.83 kg/m?? GEN: Calm, conversant, well-appearing female in [...] rashes over exposed skin. . 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 Labs - Hematology Latest Ref Range 03/22/22 04/09/22 04/19/22 05/17/22 WBC 3.8 - 9.9 K/cumm 3.0 (A) 5.1 4.6 3.6 (A) Total Hb, POC 11.9 - 15.5 g/dL 11.4 (A) 12.2 11.7 (A) 11.5 (A) Hct 35.6 - 45.5 % 35.0 (A) 35.7 35.5 (A) 34.6 (A) Plt 150 - 400 K/cumm 97 (A) 113 (A) 125 (A) 97 (A) Neutrophil abs 1.7 - 6.5 K/cumm 2.1 3.9 3.2 2.3 Lymphocytes, abs 0.8 - 3.3 K/cumm 0.4 (A) 0.5 (A) 0.8 0.7 (A) (A) Abnormal value Comments are available for some flowsheets but are not being displayed. Chem/LFT Lab History Some values may be hidden. Unless noted otherwise, only the newest values recorded on each date aredisplayed. Labs-Chem/LFT Latest Ref Range 03/22/22 04/09/22 04/19/22 05/17/22 Sodium 135 - 145 mmol/L 139 137 140 139 Creatinine 0.60 - 1.10 mg/dL 1.20 (A) 1.13 (A) 1.22 (A) 1.10 Bilirubin, total 0.1 - 1.2 mg/dL 0.6 1.4 (A) 0.4 0.5 AST 10 - 45 Units/L 29 40 28 35 ALT 7 - 45 Units/L 20 25 21 27 CrCl- Actual Body Weight (Cockcroft-Gault) 50.6 45.8 49.4 54.9 Some values recorded on this date have been omitted. (A) Abnormal value Comments are available for some flowsheets but are not being displayed. Tumor Marker History Some values may be hidden. Unless noted otherwise, only the newest values recorded on each date aredisplayed. Tumor Markers Latest Ref Range 01/29/22 02/22/22 03/22/22 04/19/22 Chromogranin A <93 ng/mL 930 (A) 874 (A) 1003 (A) 1141 (A) (A) Abnormal value Comments are available for some flowsheets but are not being displayed. RADIOGRAPHIC/DIAGNOSTIC REVIEW: CT abdomen/pelvis 04/09/2022: Stable metastatic disease in [...] 1. Metastatic neuroendocrine tumor with metastases - Continues on Octreotide LAR 30 mg; due for injection today - CT 04/09/2022 showed stable disease. - I reviewed her labs today and they are adequate to proceed with cycle 11 of CABINET study. Will continue on 20 mg dosing - Scans planned in 1 month - Chromogranin A level 1141 04/19/2022 2. Progressive focal circumferential thickening of the distal sigmoid colon per scan 01/2022 -she is not symptomatic from this and we discussed possible colonoscopy with her and her daughter - this is stable with her scans 04/09/2022. 3. Thrombocytopenia: - Platelet 97K . No signs of bleeding 4. Bone metastases: - Hold Xgeva. Phos 2.0 today; Ca 9.9 Creatinine 1.10 - Continue monitor Cr, Phos, and Calcium 5. Diarrhea - improved 6. TSH elevated -TSH 04/19/22 increased to 7.34 and today is 3.02 - continue levothyroxine at 88 mcg daily - Recheck TSH/Free T4 at next visit. 7. Vitamin D insufficiency/Deficiency: -Vit D 02/22/2022 26 and 24 today - continue Vitamin D 50 000 international units weekly All of her and questions were answered to their satisfaction and they verbalized understanding. 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) Cancer Disease Assessment for [facility] Date of diagnosis: 10/03/15 Disease status: not evaluated Date of cancer disease status assessment: 05/17/22 Neuro-endocrine carcinoma (CMS/HCC) (HCC) Bone metastasis (CMS/HCC) (HCC) H/O actinic keratosis Neuroendocrine tumor Cancer Treatment Plan Change for ICARE data: No change in treatment plan PROOF DOOR ASSEMBLER documented in this encounter Plan of Treatment Not on file documented as of this encounter Results * Phosphorus (07/12/2022 9:48 AM FIREPROOF DOOR ASSEMBLER) Phosphorus, pl 2.6 2.3 - 4.5 mg/dL [facility] Comment:Testing performed by : [address] [address] Blood 07/12/2022 9:48 AM FIREPROOF DOOR ASSEMBLER 07/12/2022 10:02 AM FIREPROOF DOOR ASSEMBLER Eren Cr MD LAB BLOOD ORDERABLES Final Re sult Performing Organization Address [facility]/ZIP Co de Phone Number [facility] [place] [address] * Magnesium (07/12/2022 9:48 AM FIREPROOF DOOR ASSEMBLER) Magnesium 1.4 1.4 - 2.5 mg/dL [facility] Comment:Testing performed by : [address] [address] Blood 07/12/2022 9:48 AM FIREPROOF DOOR ASSEMBLER 07/12/2022 10:02 AM FIREPROOF DOOR ASSEMBLER Eren Cr MD LAB BLOOD ORDERABLES Final Re sult Performing Organization Address [facility] [place] [address] * (ABNORMAL) Comprehensive metabolic panel (07/12/2022 9:48 AM FIREPROOF DOOR ASSEMBLER) Sodium 141 135 - 145 mmol/L [facility] Comment:Testing performed by : [address] [address] Potassium, pl 3.9 3.3 - 4.9 mmol/L [facility] Chloride 108 97 - 110 mmol/L [facility] CO2 28 22 - 32 mmol/L [facility] Anion gap 5 2 - 15 mmol/L [facility] BUN 16 8 - 25 mg/dL [facility] Creatinine 1.11(H) 0.60 - 1.10 mg/dL [facility] Glucose 135 70 - 199 mg/dL [facility] Comment: Interpretive Data Fasting glucose [...] 2017. Calcium 10.3 8.5 - 10.3 mg/dL [facility] Bilirubin, total 0.6 0.1 - 1.2 mg/dL [facility] Protein, pl 6.4(L) 6.5 - 8.5 g/dL [facility] Albumin 4.0 3.5 - 5.0 g/dL [facility] Alk phos 59 40 - 130 Units/L [facility] ALT 24 7 - 45 Units/L [facility] AST 34 10 - 45 Units/L [facility] Blood 07/12/2022 9:48 AM FIREPROOF DOOR ASSEMBLER 07/12/2022 10:02 AM FIREPROOF DOOR ASSEMBLER us Eren Cr MD LAB BLOOD ORDERABLES Final Re sult [facility] Department [place] [address] * (ABNORMAL) Chromogranin A (07/12/2022 9:48 AM FIREPROOF DOOR ASSEMBLER) Chromogranin A 1006(H) <93 ng/mL [facility] Comment: Impaired renal or hepatic [...] a homogeneous time-resolved immunofluorescent assay manufactured by [employer] and performed on the sofatutor Kryptor Compact Plus. ? Values obtained with different assay methods or kits may be different and cannot be used interchangeably. ? Test results cannot be interpreted as absolute evidence for the presence or absence of malignant disease. Test Performed by: Former[facility] [address] [place] [address] Tube Cutter Operator: Immanuel Novak M.D. Ph.D.; IA# [id number] Blood 07/12/2022 9:48 AM FIREPROOF DOOR ASSEMBLER 07/12/2022 2:04 PM FIREPROOF DOOR ASSEMBLER Eren Cr MD LAB BLOOD ORDERABLES Final Re sult [facility] Department [place] [address] * (ABNORMAL) Comprehensive metabolic panel (07/12/2022 9:48 AM FIREPROOF DOOR ASSEMBLER) [facility] Sodium 140 135 - 145 mmol/L [facility] Comment:Testing performed by : [facility], [address] [place] [address] Potassium, pl 3.9 3.3 - 4.9 mmol/L [facility] Chloride 107 97 - 110 mmol/L [facility] CO2 27 22 - 32 mmol/L [facility] Anion gap 6 2 - 15 mmol/L [facility] BUN 16 8 - 25 mg/dL [facility] Creatinine 1.11(H) 0.60 - 1.10 mg/dL [facility] Glucose 134 70 - 199 mg/dL [facility] Comment: Interpretive Data Fasting glucose [...] 2017. Calcium 10.1 8.5 - 10.3 mg/dL [facility] Bilirubin, total 0.6 0.1 - 1.2 mg/dL [facility] Protein, pl 6.3(L) 6.5 - 8.5 g/dL [facility] Albumin 3.9 3.5 - 5.0 g/dL [facility] Alk phos 61 40 - 130 Units/L [facility] ALT 25 7 - 45 Units/L [facility] AST 34 10 - 45 Units/L [facility] Blood 07/12/2022 9:48 AM FIREPROOF DOOR ASSEMBLER 07/12/2022 10:02 AM FIREPROOF DOOR ASSEMBLER Eren Cr MD LAB BLOOD ORDERABLES Final Re sult [facility] Department [place] [address] * (ABNORMAL) CBC with auto differential (07/12/2022 9:48 AM FIREPROOF DOOR ASSEMBLER) [facility] WBC 3.3(L) 3.8 - 9.9 K/cumm [facility] Comment:Testing performed by : [address] [address] Hgb 12.1 11.9 - 15.5 g/dL [facility] Comment:Testing performed by : [address] [address] Hct 36.0 35.6 - 45.5 % [facility] Comment:Testing performed by : [address] [address] Plt 96(L) 150 - 400 K/cumm [facility] Comment:Testing performed by : [address] [address] MPV 10.7 9.1 - 12.3 fL [facility] RBC 3.67(L) 3.90 - 5.20 M/cumm [facility] MCV 98.1(H) 81.3 - 96.4 fL [facility] MCH 33.0 27.1 - 33.3 pg [facility] MCHC 33.6 32.3 - 35.7 g/dL [facility] RDW CV 14.3 11.1 - 14.9 % [facility] RDW SD 50.9(H) 35.7 - 48.1 fL [facility] NRBC abs 0.00 0.00 - 0.01 K/cumm [facility] Blood 07/12/2022 9:48 AM FIREPROOF DOOR ASSEMBLER 07/12/2022 10:02 AM FIREPROOF DOOR ASSEMBLER Eren Cr MD LAB BLOOD ORDERABLES Final Re sult Performing Organization Address [facility]/ZIP Co de Phone Number [facility] Department [place] [address] * (ABNORMAL) Vitamin D 25 hydroxy (07/12/2022 9:48 AM FIREPROOF DOOR ASSEMBLER) Pathologist [facility] Vitamin D 25-OH 19(L) 30 - 80 ng/mL [facility] Blood 07/12/2022 9:48 AM FIREPROOF DOOR ASSEMBLER 07/12/2022 11:41 AM FIREPROOF DOOR ASSEMBLER Eren Cr MD LAB BLOOD ORDERABLES Final Re sult [facility] [place] [address] * Phosphorus (07/12/2022 9:48 AM FIREPROOF DOOR ASSEMBLER) Pathologist [facility] Phosphorus, pl 2.7 2.3 - 4.5 mg/dL [facility] Comment:Testing performed by : [facility], [address] [place] [address] Blood 07/12/2022 9:48 AM FIREPROOF DOOR ASSEMBLER 07/12/2022 10:02 AM FIREPROOF DOOR ASSEMBLER us Eren Cr MD LAB BLOOD ORDERABLES Final Re sult [facility] Department [place] [address] * (ABNORMAL) Lipid panel (07/12/2022 9:48 AM FIREPROOF DOOR ASSEMBLER) Cholesterol 183 30 - 199 mg/dL [facility] Comment: [...] on 2018. Triglycerides 262(H) <=149 mg/dL [facility] [...] revised on 2018. HDL 55 >=40 mg/dL [facility] Comment: Interpretive Data Ages < or = [...] on 2018. LDL, calculated 76 <=129 mg/dL [facility] Comment: Interpretive Data Ages < [...] revised on 2018. Non-HDL Cholesterol 128 mg/dL [facility] Comment: Interpretive Data Ages < or = [...] on 2018. Chol/HDL ratio 3 [facility] Blood 07/12/2022 9:48 AM FIREPROOF DOOR ASSEMBLER 07/12/2022 11:41 AM FIREPROOF DOOR ASSEMBLER us Eren Cr MD LAB BLOOD ORDERABLES Final Re sult [facility] Department [place] [address] * (ABNORMAL) Chromogranin A (06/14/2022 9:33 AM FIREPROOF DOOR ASSEMBLER) Chromogranin A 1093(H) <93 ng/mL [facility] Comment: Impaired renal or hepatic [...] a homogeneous time-resolved immunofluorescent assay manufactured by [employer] and performed on the sofatutor KrBoomsetor Compact Plus. ? Values obtained with different assay methods or kits may be different and cannot be used interchangeably. ? Test results cannot be interpreted as absolute evidence for the presence or absence of malignant disease. Test Performed by: [facility] [address] [place] [address] Tube Cutter Operator: Immanuel Novak M.D. Ph.D.; CLIA# [id number] Blood 06/14/2022 9:33 AM FIREPROOF DOOR ASSEMBLER 06/14/2022 10:32 AM FIREPROOF DOOR ASSEMBLER us Eren Cr MD LAB BLOOD ORDERABLES Final Re sult [facility] Department [place] [address] * (ABNORMAL) Comprehensive metabolic panel (06/14/2022 9:33 AM FIREPROOF DOOR ASSEMBLER) Sodium 139 135 - 145 mmol/L [facility] Comment:Testing performed by : [facility], [address] [place] [address] Potassium, pl 3.6 3.3 - 4.9 mmol/L [facility] Chloride 109 97 - 110 mmol/L [facility] CO2 25 22 - 32 mmol/L [facility] Anion gap 5 2 - 15 mmol/L [facility] BUN 16 8 - 25 mg/dL [facility] Creatinine 1.15(H) 0.60 - 1.10 mg/dL [facility] Glucose 112 70 - 199 mg/dL [facility] Comment: Interpretive Data Fasting glucose [...] 2017. Calcium 10.3 8.5 - 10.3 mg/dL [facility] Bilirubin, total 0.4 0.1 - 1.2 mg/dL [facility] Protein, pl 6.1(L) 6.5 - 8.5 g/dL [facility] Albumin 4.0 3.5 - 5.0 g/dL [facility] Alk phos 72 40 - 130 Units/L [facility] ALT 22 7 - 45 Units/L [facility] AST 32 10 - 45 Units/L [facility] Blood 06/14/2022 9:33 AM FIREPROOF DOOR ASSEMBLER 06/14/2022 9:35 AM FIREPROOF DOOR ASSEMBLER us Eren Cr MD LAB BLOOD ORDERABLES Final Re sult [facility] Department [place] [address] * (ABNORMAL) CBC with auto differential (06/14/2022 9:33 AM FIREPROOF DOOR ASSEMBLER) WBC 3.3(L) 3.8 - 9.9 K/cumm [facility] Comment:Testing performed by : [address] [address] Hgb 11.4(L) 11.9 - 15.5 g/dL [facility] Comment:Testing performed by : [address] [address] Hct 34.3(L) 35.6 - 45.5 % [facility] Comment:Testing performed by : [address] [address] Plt 107(L) 150 - 400 K/cumm [facility] Comment:Testing performed by : [address] [address] MPV 10.7 9.1 - 12.3 fL [facility] RBC 3.49(L) 3.90 - 5.20 M/cumm [facility] MCV 98.3(H) 81.3 - 96.4 fL [facility] MCH 32.7 27.1 - 33.3 pg [facility] MCHC 33.2 32.3 - 35.7 g/dL [facility] RDW CV 13.7 11.1 - 14.9 % [facility] RDW SD 49.1(H) 35.7 - 48.1 fL [facility] NRBC abs 0.00 0.00 - 0.01 K/cumm [facility] Blood 06/14/2022 9:33 AM FIREPROOF DOOR ASSEMBLER 06/14/2022 9:35 AM FIREPROOF DOOR ASSEMBLER Eren Cr MD LAB BLOOD ORDERABLES [place] [address] * (ABNORMAL) Vitamin D 25 hydroxy (06/14/2022 9:33 AM FIREPROOF DOOR ASSEMBLER) Vitamin D 25-OH 20(L) 30 - 80 ng/mL [facility] Blood 06/14/2022 9:33 AM FIREPROOF DOOR ASSEMBLER 06/14/2022 10:32 AM FIREPROOF DOOR ASSEMBLER Eren Cr MD LAB BLOOD ORDERABLES Final Re sult Performing Organization Address [facility] Co de Phone Number [facility] [place] [address] * Phosphorus (06/14/2022 9:33 AM FIREPROOF DOOR ASSEMBLER) Phosphorus, pl 2.3 2.3 - 4.5 mg/dL [facility] Comment:Testing performed by : [facility], [address] [place] [address] Blood 06/14/2022 9:33 AM FIREPROOF DOOR ASSEMBLER 06/14/2022 9:35 AM FIREPROOF DOOR ASSEMBLER Eren Cr MD LAB BLOOD ORDERABLES Final Re sult Performing Organization Address [facility]/ZIP Co de Phone Number [facility] [place] [address] * (ABNORMAL) Lipid panel (06/14/2022 9:33 AM FIREPROOF DOOR ASSEMBLER) [facility] Signature Cholesterol 155 30 - 199 mg/dL [facility] [...] Data was last revised on 2018. Triglycerides 166(H) <=149 mg/dL [facility] Comment: Interpretive Data [...] on 2018. HDL 56 >=40 mg/dL [facility] Comment: Interpretive Data [...] LDL, calculated 66 <=129 mg/dL [facility] Comment: Interpretive Data Ages < [...] was last revised on 2018. Non-HDL Cholesterol 99 mg/dL [facility] [...] on 2018. Chol/HDL ratio 3 [facility] Blood 06/14/2022 9:33 AM FIREPROOF DOOR ASSEMBLER 06/14/2022 10:32 AM FIREPROOF DOOR ASSEMBLER Eren Cr MD LAB BLOOD ORDERABLES Final Re sult Performing Organization Address City/[facility]/ZIP Co de Phone Number [facility] [place] [address] * Magnesium (06/14/2022 9:33 AM FIREPROOF DOOR ASSEMBLER) Magnesium 1.5 1.4 - 2.5 mg/dL [facility] Comment:Testing performed by : [facility], [address] [place] [address] Blood 06/14/2022 9:33 AM FIREPROOF DOOR ASSEMBLER 06/14/2022 9:35 AM FIREPROOF DOOR ASSEMBLER us Eren Cr MD LAB BLOOD ORDERABLES Final Re sult Performing Organization Address [facility] Co de Phone Number [facility] [place] [address] documented in this encounter Visit Diagnoses Diagnosis Malignant neoplasm metastatic to liver (HCC)- Primary Primary malignant neuroendocrine tumor of ileum (HCC) Bone metastasis Secondary malignant neoplasm of bone and bone marrow Neuro-endocrine carcinoma (HCC) Other malignant neoplasm of unspecified site Neuroendocrine carcinoma (HCC) Other malignant neoplasm of unspecified site Dehydration documented in this encounter Orders Appointment Requests Count Last Ordered Date Fi rst Ordered Date ONCBCN CLINIC APPOINTMENT REQUEST 5 023 05/17/2022 ON[facility]N INJECTION APPOINTMENT REQUEST 2 11/202206/14/2022 ON[facility]N LAB APPOINTMENT 4 07/12/202206/14 ON[facility]N TAKE HOME STUDY DRUG APPT 2 07/12/19 23 06/14/2022 ONCBCN INFUSION APPT REQUEST 3 06/14/2022 05/28/2022 documented in this encounter Care Teams Glove Cleaner Relationship Specialty Start Date End Date Julio César Briseno MD PCP - General 10/01/16 Eren Cr MD Referring Physician Medical Oncology 11/25/18 Yohana Bowen MD Radiation Oncologist Radiation Oncology 11/25/18 documented as of this encounter
--- OUTSIDE RECORDS SUMMARY | 2024-06-25 22:18 | XMS_ITS | Encounter Summary ---
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 Oncology [address] [place] [address] Eren Wu MD [address] [place] [address] Neuroendocrine carcinoma (CMS/HCC) (HCC) (Primary Dx); 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); Bone metastasis (CMS/HCC) (HCC); Neuro-endocrine carcinoma (CMS/HCC) (HCC) Social [...] on file Legal Sex Female 2:41 PM TRIGONOMETRY TUTOR Gender Identity Not on file Sexual Orientation Straight 02/19/2021 9: 29 AM CDT Occupation Industry Job Start Date Job End Date retired Not on file Not on file Not on file documented as of this encounter Last Filed Vital Signs Vital Sign Reading Time Taken Comments Blood Pressure 147/68 06/14/2022 9:43 AM TRIGONOMETRY TUTOR Pulse 77 06/14/2022 9:43 AM TRIGONOMETRY TUTOR Temperature 36.8 ??C (98.2 ??F) 06/14/2022 9:43 AM CS T Respiratory Rate 17 06/14/2022 9:43 AM TRIGONOMETRY TUTOR Oxygen Saturation 96% 06/14/2022 9:43 AM TRIGONOMETRY TUTOR Inhaled Oxygen Concentration - - Weight 76.5 kg (168 lb 9.6 oz) 06/14/2022 9:43 A M TRIGONOMETRY TUTOR shoes off Height - - Body Mass Index 29.87 04/09/2022 7:02 PM CDT documented in this encounter Progress Notes * Eren Wu Jr., MD - 06/14/2022 10:00 AM CST Images from the original note were not included. MEDICAL ONCOLOGY OUTPATIENT ROV NOTE DATE OF VISIT: 06/14/2022 DIAGNOSIS: well differentiated neuroendocrine tumor of ileum [...] and appear to be tolerating this well. Her Octreotide injection due today. She had a port check 06/12/2022 and noted good functional port with no fibrin sheath. Today she reports feeling fair. She denies any further diarrhea. She denies any headaches or seizures. She denies abdominal pain, nausea, vomiting, diarrhea, constipation, fevers, or chills. She comes today with her sister, Anuradha. REVIEW OF SYSTEMS: A complete review of systems was performed and positive and pertinent negative responses are documented in the history of present illness All other systems were negative. PHYSICAL EXAM: ECOG PS: 1 VITALS: BP 147/68 (BP Location: Left arm) Pulse 77 Temp 36.8 ??C (98.2 ??F) (Oral) Resp 17 Wt 76.5 kg (168 lb 9.6 oz) Comment: shoes off SpO2 96% BMI 29.87 kg/m?? GEN: Calm, conversant, well-appearing female in [...] rashes over exposed skin. . NEURO: A&Ox4, residence hall director grossly intact by conversation, moving all extremities [...] aredisplayed. Labs - Hematology Latest Ref Range 04/09/22 04/19/22 05/17/22 06/14/22 WBC 3.8 - 9.9 K/cumm 5.1 4.6 3.6 (A) 3.3 (A) Total Hb, POC 11.9 - 15.5 g/dL 12.2 11.7 (A) 11.5 (A) 11.4 (A) Hct 35.6 - 45.5 % 35.7 35.5 (A) 34.6 (A) 34.3 (A) Plt 150 - 400 K/cumm 113 (A) 125 (A) 97 (A) 107 (A) Neutrophil abs 1.7 - 6.5 K/cumm 3.9 3.2 2.3 2.3 Lymphocytes, abs 0.8 - 3.3 K/cumm 0.5 (A) 0.8 0.7 (A) 0.6 (A) (A) Abnormal value Comments are available for some flowsheets but are not being displayed. Chem/LFT Lab History Some values may be hidden. Unless noted otherwise, only the newest values recorded on each date aredisplayed. Labs-Chem/LFT Latest Ref Range 04/09/22 04/19/22 05/17/22 06/14/22 Sodium 135 - 145 mmol/L 137 140 139 139 Creatinine 0.60 - 1.10 mg/dL 1.13 (A) 1.22 (A) 1.10 1.15 (A) Bilirubin, total 0.1 - 1.2 mg/dL 1.4 (A) 0.4 0.5 0.4 AST 10 - 45 Units/L 40 28 35 32 ALT 7 - 45 Units/L 25 21 27 22 CrCl- Actual Body Weight (Cockcroft-Gault) 45.8 49.4 54.9 52.6 Some values recorded on this date have [...] LAR 30 mg; due for injection today -We reviewed her course and history since her diagnosis in 2016. She is tolerating her treatment. - I reviewed her labs today and they are adequate to proceed with cycle 12 of CABINET study. Will continue on 20 mg dosing of cabozantinib/placebo. She is agreeable to proceed. Conferred with [facility] regarding dosing and she will continue on the 20 mg daily dose - Scans planned in 06/28/2022 - Chromogranin A level 1141 04/19/2022 -plans for her to see us again after her scans. 2. Progressive focal circumferential thickening of the distal sigmoid colon per scan 01/2022 -she is not symptomatic - this is stable with her scans 04/09/2022. 3. Thrombocytopenia: - Platelet 107K . No signs of bleeding 4. Bone metastases: - ok with Xgeva today. Phos 2.3 today; Ca 10.3 Creatinine 1.15 - Continue monitor Cr, Phos, and Calcium 5. Diarrhea - ipt taking immodium and lomotil 6. TSH elevated -TSH 04/19/22 increased to 7.34 and on 05/17/2022 is 3.02 - continue levothyroxine at 88 mcg daily - 7. Vitamin D insufficiency/Deficiency: -Vit D 02/22/2022 26 and 24 on 05/17/2022 - continue Vitamin D 50 000 international units weekly -recheck vitamin D in 08/2022 All of her and questions were answered to their satisfaction and they verbalized understanding. Eren Wu MD Jump to the Problem List Disease Status [place] [facility] [place]oplastic Disease Neuroendocrine carcinoma (CMS/HCC) (HCC) Cancer Disease Assessment for [facility] [place] Date of diagnosis: 10/03/15 Disease status: stable Reason for disease status: imaging, symptoms, physical exam, lab results Date of cancer disease status assessment: 04/19/22 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) Cancer Disease Assessment for [facility] Date of diagnosis: 10/03/15 Disease status: not evaluated Date of cancer disease status assessment: 06/14/22 Neuro-endocrine carcinoma (CMS/HCC) (HCC) Bone metastasis (CMS/HCC) (HCC) H/O actinic keratosis Neuroendocrine tumor Cancer Treatment Plan Change for ICARE data: No change in treatment plan ONOMETRY TUTOR ONOMETRY TUTOR documented in this encounter Miscellaneous Notes * Addendum Note - Eren Wu Jr., MD - 06/14/2022 10:00 AM CSTAddended by: EREN WU on: 06/14/2022 11:38 AM Modules accepted: Orders ONOMETRY TUTOR documented in this encounter Plan of Treatment [...] Ordered Date ONCBCN CLINIC APPOINTMENT REQUEST 2 022 documented in this encounter Care Teams Burn Center Nurse Relationship Specialty Start Date End Date Julio César Briseno MD PCP - General 10/01/16 Eren Wu MD Referring Physician Medical Oncology 11/25/18 Yohana Bowen MD Radiation Oncologist Radiation Oncology 11/25/18 documented as of this encounter
--- OUTSIDE RECORDS SUMMARY | 2024-06-25 22:18 | XMS_ITS | Encounter Summary ---
Author Organization 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) Bone metastasis Procedures CT chest abdomen pelvis with contrast Eren Cr MD [facility] [address] [place] [address] Phone: tel: fax: [facility] [address] [place] [address] Referral ID Status Reason Start Date Expiration Date Visits Re quested Visits Authorized [id number] Closed 06/13/2022 07/13/2023 1 1 CONDUCTOR Encounter Details Date Type Department Care Team (Late st Contact Info) Description 06/13/2022 Orders Only [facility] Oncology [address] [place] [address] Eren Cr MD [address] [facility] [address] [place] [address] 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) (Primary Dx); Malignant neoplasm metastatic [...] on file Legal Sex Female 2:41 PM TOUR CONDUCTOR Gender Identity Not on file Sexual Orientation Straight 02/19/2021 9: 29 AM CDT Occupation Industry Job Start Date Job End Date retired Not on file Not on file Not on file documented as of this encounter Plan of Treatment Not on file documented as of this encounter Results * CT chest abdomen pelvis with contrast (06/28/2022 10:38 AM TOUR CONDUCTOR) Anatomical Region Laterality Modality Body N/A Computed Tomogra phy 06/28/2022 11:3 6 AM TOUR CONDUCTOR Impressions 06/28/2022 11:36 AM TOUR CONDUCTOR 1. ??No metastatic disease in the chest. 2. ??Stable hepatic and peritoneal metastases. ??No new abdominal metastases. Electronically signed by: Jasbir Delgadillo M.D. Narrative 06/28/2022 11:36 AM TOUR CONDUCTOR EXAMINATION: ??CT chest abdomen pelvis with contrast HISTORY: Metastatic carcinoid tumor of colon. ??Evaluate treatment response. TECHNIQUE: ??Standard protocol using 94 mL Optiray 350 nonionic intravenous contrast. COMPARISON: CT abdomen pelvis 04/09/[address] chest abdomen pelvis 03/21/2022 FINDINGS: ?? CHEST: Right internal jugular port catheter tip at superior cavoatrial junction. ??Hypoattenuation around the tip and posterior right atrium favored to represent motion artifact. ??Aberrant right subclavian artery and coronary artery calcification again noted. 3 mm left lower lobe nodule abutting the major fissure (149.3) unchanged since at least 06/22/2021. ??No suspicious new or enlarging pulmonary nodules. ??No enlarged thoracic lymph nodes or pleural effusion. ??Small hiatal hernia. ABDOMEN AND PELVIS: Multiple hypoattenuating liver lesions are again seen, without definite change from the prior study. ??A segment 7 subcapsular lesion (series 2 image 124) is inconspicuous on 04/09/2022 but appears unchanged from 03/21/2022 measuring 2.3 x 1.8 cm. ??There is also a 1.5 x 1.2 cm lesion in the dome anterior to the inferior vena cava (image 103) which is not well seen on 04/09/2022 but unchanged from 03/21/2022. ??This may reflect differences related to phase of contrast enhancement. ??The scattered sub-5 mm hypoattenuating splenic lesions are unchanged. ??Cholecystectomy clips are again seen. ??The pancreas, adrenal glands, and left kidney are normal. ??Right renal cyst minimally higher in attenuation compared to the prior study but otherwise unchanged. Surgical changes of prior right hemicolectomy and hysterectomy and left lower quadrant diverting colostomy with parastomal hernia containing small bowel loops and an unchanged subcentimeter peritoneal nodule. ??Large duodenal diverticulum again noted. The multiple peritoneal nodules are unchanged. ??For reference, the nodule along the medial aspect of the right perirenal fascia (series 2 image 200) measures 1.6 x 1.2 cm compared to 1.5 x 1.1 cm previously. ??The nodule adjacent to this may represent a retroperitoneal lymph node is stable measuring 9 mm (image 193). ??The metastasis at the right vaginal cuff measures 2.6 x 2.5 cm compared to 2.8 x 2.4 cm previously. ??No new nodules identified. Sigmoid diverticuli again noted. ??Normal urinary bladder. ??The high attenuation material around the urethra is unchanged. Bone windows show no osseous metastases. Procedure Note Jasbir Delgadillo MD - 06/28/2022 EXAMINATION: CT chest abdomen pelvis with contrast HISTORY: Metastatic carcinoid tumor of colon. Evaluate treatment response. TECHNIQUE: Standard protocol using 94 mL Optiray 350 nonionic intravenous contrast. COMPARISON: CT abdomen pelvis 04/09/[address] chest abdomen pelvis 03/21/2022 FINDINGS: CHEST: Right internal jugular port catheter tip at superior cavoatrial junction. Hypoattenuation around the tip and posterior right atrium favored to represent motion artifact. Aberrant right subclavian artery and coronary artery calcification again noted. 3 mm left lower lobe nodule abutting the major fissure (149.3) unchanged since at least 06/22/2021. No suspicious new or enlarging pulmonary nodules. No enlarged thoracic lymph nodes or pleural effusion. Small hiatal hernia. ABDOMEN AND PELVIS: Multiple hypoattenuating liver lesions are again seen, without definite change from the prior study. A segment 7 subcapsular lesion (series 2 image 124) is inconspicuous on 04/09/2022 but appears unchanged from 03/21/2022 measuring 2.3 x 1.8 cm. There is also a 1.5 x 1.2 cm lesion in the dome anterior to the inferior vena cava (image 103) which is not well seen on 04/09/2022 but unchanged from 03/21/2022. This may reflect differences related to phase of contrast enhancement. The scattered sub-5 mm hypoattenuating splenic lesions are unchanged. Cholecystectomy clips are again seen. The pancreas, adrenal glands, and left kidney are normal. Right renal cyst minimally higher in attenuation compared to the prior study but otherwise unchanged. Surgical changes of prior right hemicolectomy and hysterectomy and left lower quadrant diverting colostomy with parastomal hernia containing small bowel loops and an unchanged subcentimeter peritoneal nodule. Large duodenal diverticulum again noted. The multiple peritoneal nodules are unchanged. For reference, the nodule along the medial aspect of the right perirenal fascia (series 2 image 200) measures 1.6 x 1.2 cm compared to 1.5 x 1.1 cm previously. The nodule adjacent to this may represent a retroperitoneal lymph node is stable measuring 9 mm (image 193). The metastasis at the right vaginal cuff measures 2.6 x 2.5 cm compared to 2.8 x 2.4 cm previously. No new nodules identified. Sigmoid diverticuli again noted. Normal urinary bladder. The high attenuation material around the urethra is unchanged. Bone windows show no osseous metastases. IMPRESSION: 1. No metastatic disease in the chest. 2. Stable hepatic and peritoneal metastases. No new abdominal metastases. Electronically signed by: Jasbir Delgadillo M.D. 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
--- OUTSIDE RECORDS SUMMARY | 2024-06-25 22:18 | XMS_ITS | Encounter Summary ---
Author Organization [facility] Address [address] [place] [address] Phone Care Team Providers Care Public Health Specialist Name Role Phone Julio César Briseno MD Primary Care Provider [phone] Eren Cr MD Unavailable [phone] Yohana Bowen MD Unavailable Reason for Visit * Episode Based Medications (Routine) - Closed Specialty Diagnoses / Procedures Referred By Evelyne bowman Referred To Contact Diagnoses Neuro-endocrine carcinoma (HCC) Procedures study [id number] phase III cabozantinib Eren Cr MD [address] [facility] [address] [place] [address] Phone: tel: fax: [facility] [address] [facility] Advanced Medicine 7th [place] [address] Phone: tel: Referral ID Status Reason Start Date Expiration Date Visits Re quested Visits Authorized [id number] Closed 06/21/2021 06/26/2024 1 99 Encounter Details Date Type Department Care Team (Latest Contact Info) Description 05/17/2022 2:00 PM SCOUT 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 SPORTS Research Med Pick-Up/CTRU [employer] [facility] Oncology [address] [place] [address] Neuro-endocrine carcinoma (CMS/HCC) (HCC) (Primary Dx) Social [...] on file Legal Sex Female 2:41 PM SCOUT 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 SPORTS Gender Identity Not on file Sexual Orientation [...] Date First Ordered Date [id number] cabozantinib/pl acebo (08-122/[id number]) tablet 20 mg 1 05/17/2022 Nursing Count Last Ordered Date First Orde red Date ONCBCN CLINICAL PHARMACIST REVIEW 1 022 ONCBCN STUDY COMMUNICATION 2 1 05/17/2022 ONCBCN TREATMENT PARAMETERS 1 1 05/17/2022 RESEARCH STUDY CLARIFICATION ORDER 1 2021 Appointment Requests Count Last Ordered Date Fi rst Ordered Date ONCBCN TAKE HOME STUDY DRUG APPT 1 05/17/20 22 documented in this encounter Care Teams Public Health Specialist Relationship Specialty Start Date End Date Julio César Briseno MD PCP - General 10/01/16 Eren Cr MD Referring Physician Medical Oncology 11/25/18 Yohana Bowen MD Radiation Oncologist Radiation Oncology 11/25/18 documented as of this encounter
--- OUTSIDE RECORDS SUMMARY | 2024-06-25 22:18 | XMS_ITS | Encounter Summary ---
Author Organization 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); Neuro-endocrine carcinoma (CMS/HCC) (HCC); Hypothyroidism due to medication Discharge Disposition: Discharge [...] on file Legal Sex Female 2:41 PM [employer] Gender Identity Not on file Sexual Orientation [...] capsuleIndicatio ns:supplement Take 1 tablet by mouth vp cardiovascular before breakfast 07/04/2016 4 cholecalciferol (VITAMIN D-3) 2,000 unit capsule Take 1 capsule (2,000 Units total) by mouth daily 30 capsule 2 04/25/2019 3 clotrimazole-bet amethasone (LOTRISONE) cream Apply 1 Application topically daily as needed (rash) 4 coenzyme [id number] 100-5 mg-unit capsuleIndicatio ns:supplement Take 1 tablet by mouth vp cardiovascular before breakfast 4 diphenoxylate-at ropine (LOMOTIL) 2.5-0.025 [...] rhinitis or allergies 4 [id number] cabozantinib/maris cebo (08-122/A02 1602) 20 mg tabletIndication s:cancer study Take 1 tablet (20 mg total) by mouth nightly Take on an empty stomach (no food for 2 hours before and 1 hour after each dose).?? Avoid [place]'s Wort, grapefruit products and [place] oranges while on treatment. placed on hold 09/26/22 for covid 01/29/2022 4 levothyroxine (SYNTHROID) 88 mcg tabletIndication s:Hypothyroidism due to medication TAKE 1 TABLET (88 MCG TOTAL) BY MOUTH OUTREACH REP BEFORE BREAKFAST 30 tablet 1 05/14/2022 2 LORazepam (ATIVAN) 0.5 mg tabletIndication s:MRI scan [...] PROTEIN / CREATININE RATIO, URINE, RANDOM STAT 05/17/2022 12:16 PM [employer] Neuro-endocrine carcinoma (CMS/HCC) (HCC) EGFR STAT 05/17/2022 11:34 AM [employer] Neuro-endocrine carcinoma (CMS/HCC) (HCC) DIFFERENTIAL AUTO STAT 05/17/2022 11: 34 AM [employer] Neuro-endocrine carcinoma (CMS/HCC) (HCC) THYROID FUNCTION CASCADE Routine 05/17/2022 11:34 AM [employer] Hypothyroidism due to medication CBC WITH AUTO DIFFERENTIAL STAT 05/17/2022 11:34 AM [employer] Neuro-endocrine carcinoma (CMS/HCC) (HCC) VITAMIN D 25 HYDROXY Routine 05/17/2022 11:34 AM [employer] 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) PHOSPHORUS Routine 05/17/2022 11:34 AM [employer] 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) MAGNESIUM STAT 05/17/2022 11:34 AM [employer] Neuro-endocrine carcinoma (CMS/HCC) (HCC) LIPID PANEL Routine 05/17/2022 11:34 AM [employer] 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) COMPREHENSIVE METABOLIC PANEL STAT 05/17/2022 11:34 AM [employer] Neuro-endocrine carcinoma (CMS/HCC) (HCC) documented in this encounter Results * Protein / creatinine ratio, urine, random (05/17/2022 12:16 PM [employer]) Pathologist [facility] Protein, ur, quant 10.6 mg/dL [facility] Comment: Interpretive Data No reference range established. Current interpretive data was last revised 2018. Creatinine Ur 140.9 mg/dL [facility] Comment: Interpretive Data No reference range established. Current interpretive data was last revised 2018. Protein/creatinin e ratio 75.2 0.0 - 180.0 mg/g CR [facility] Urine 05/17/2022 12:1 6 PM [employer] 05/17/2022 1:51 PM [employer] us Eren Cr MD LAB URINE ORDERABLES Final Re sult [facility] Department [place] [address] * (ABNORMAL) eGFR (05/17/2022 11:34 AM [employer]) Pathologist [facility] eGFR 53(L) 90 - 130 mL/min/1. 73 m2 [facility] Comment: Interpretive Data Reference Interval Normal [...] interpretive data was last reviewed 2021. Blood 05/17/2022 11:3 4 AM [employer] 05/17/2022 11:36 AM [employer] us Eren Cr MD LAB BLOOD ORDERABLES Final Re sult [facility] Department [place] [address] * (ABNORMAL) Differential, auto (05/17/2022 11:34 AM [employer]) Neutrophil abs 2.3 1.7 - 6.5 K/cumm [facility] Comment:Testing performed by : [facility], [address] [place] [address] Imm gran abs 0.0 0.0 - 0.1 K/cumm [facility] Lymphocyte abs 0.7(L) 0.8 - 3.3 K/cumm [facility] Monocyte abs 0.5 0.2 - 0.8 K/cumm [facility] Eosinophil abs 0.1 0.0 - 0.5 K/cumm [facility] Basophil abs 0.0 0.0 - 0.1 K/cumm [facility] Neutrophil pct 63.1 % [facility] Comment: Interpretive Data Percent cell count reference ranges are not reported, since discordance with absolute values may lead to misinterpretation of CBC data. Current Interpretive Data was last revised on 2017. Imm gran pct 0.3 % [facility] Comment: Interpretive Data Percent cell count reference ranges are not reported, since discordance with absolute values may lead to misinterpretation of CBC data. Current Interpretive Data was last revised on 2017. Lymphocyte pct 20.1 % [facility] Comment: Interpretive Data Percent cell count reference ranges are not reported, since discordance with absolute values may lead to misinterpretation of CBC data. Current Interpretive Data was last revised on 2017. Monocyte pct 13.4 % [facility] Comment: Interpretive Data Percent cell count reference ranges are not reported, since discordance with absolute values may lead to misinterpretation of CBC data. Current Interpretive Data was last revised on 2017. Eosinophil pct 2.5 % [facility] Comment: Interpretive Data Percent cell count reference ranges are not reported, since discordance with absolute values may lead to misinterpretation of CBC data. Current Interpretive Data was last revised on 2017. Basophil pct 0.6 % [facility] Comment: Interpretive Data Percent cell count reference ranges are not reported, since discordance with absolute values may lead to misinterpretation of CBC data. Current Interpretive Data was last revised on 2017. Blood 05/17/2022 11:3 4 AM [employer] 05/17/2022 11:36 AM [employer] Eren Cr MD LAB BLOOD ORDERABLES Final Re sult Performing Organization Address City/[facility]/ZIP Co de Phone Number [facility] Department [place] [address] * TSH reflex to free T4 (05/17/2022 11:34 AM [employer]) TSH 3.02 0.30 - 4.20 mcIUnit/mL [facility] Blood 05/17/2022 11:3 4 AM [employer] 05/17/2022 12:37 PM [employer] Eren Cr MD LAB BLOOD ORDERABLES Final Re sult Performing Organization Address City/[facility]/ZIP Co de Phone Number [facility] Department [place] [address] * (ABNORMAL) CBC with auto differential (05/17/2022 11:34 AM [employer]) [facility] WBC 3.6(L) 3.8 - 9.9 K/cumm [facility] Comment:Testing performed by : [facility], [address] [place] [address] Hgb 11.5(L) 11.9 - 15.5 g/dL [facility] Comment:Testing performed by : [address] [address] Hct 34.6(L) 35.6 - 45.5 % [facility] Comment:Testing performed by : [address] [address] Plt 97(L) 150 - 400 K/cumm [facility] Comment:Testing performed by : [address] [address] MPV 11.0 9.1 - 12.3 fL [facility] RBC 3.44(L) 3.90 - 5.20 M/cumm [facility] MCV 100.6(H) 81.3 - 96.4 fL [facility] MCH 33.4(H) 27.1 - 33.3 pg [facility] MCHC 33.2 32.3 - 35.7 g/dL [facility] RDW CV 14.1 11.1 - 14.9 % [facility] RDW SD 51.1(H) 35.7 - 48.1 fL [facility] NRBC abs 0.00 0.00 - 0.01 K/cumm [facility] Blood 05/17/2022 11:3 4 AM [employer] 05/17/2022 11:36 AM [employer] us Eren Cr MD LAB BLOOD ORDERABLES Final Re sult [facility] Department [place] [address] * Comprehensive metabolic panel (05/17/2022 11:34 AM [employer]) [facility] Sodium 139 135 - 145 mmol/L [facility] Comment:Testing performed by : [facility], [address] [facility] [address] Potassium, pl 4.0 3.3 - 4.9 mmol/L [facility] Chloride 107 97 - 110 mmol/L [facility] CO2 26 22 - 32 mmol/L [facility] Anion gap 6 2 - 15 mmol/L [facility] BUN 13 8 - 25 mg/dL [facility] Creatinine 1.10 0.60 - 1.10 mg/dL [facility] Glucose 106 70 - 199 mg/dL [facility] Comment: Interpretive Data Fasting glucose >/= [...] interpretive data was last revised 2017. Calcium 9.9 8.5 - 10.3 mg/dL [facility] Bilirubin, total 0.5 0.1 - 1.2 mg/dL [facility] Protein, pl 6.6 6.5 - 8.5 g/dL [facility] Albumin 4.2 3.5 - 5.0 g/dL [facility] Alk phos 60 40 - 130 Units/L [facility] ALT 27 7 - 45 Units/L [facility] AST 35 10 - 45 Units/L [facility] Blood 05/17/2022 11:3 4 AM [employer] 05/17/2022 11:36 AM [employer] us Eren Cr MD LAB BLOOD ORDERABLES Final Re sult [facility] Department [place] [address] * Magnesium (05/17/2022 11:34 AM [employer]) Pathologist [facility] Magnesium 1.6 1.4 - 2.5 mg/dL [facility] Comment:Testing performed by : [facility], [address] [place] [address] Blood 05/17/2022 11:3 4 AM [employer] 05/17/2022 11:36 AM [employer] us Eren Cr MD LAB BLOOD ORDERABLES Final Re sult [facility] Department [place] [address] * (ABNORMAL) Lipid panel (05/17/2022 11:34 AM [employer]) Pathologist [facility] Cholesterol 183 30 - 199 mg/dL [facility] Comment: Reviewed Interpretive Data Ages < or = 19 [...] Data was last revised on 2018. Triglycerides 242(H) <=149 mg/dL [facility] Comment: Interpretive Data Ages [...] revised on 2018. HDL 59 >=40 mg/dL [facility] Comment: Interpretive Data Ages < or [...] on 2018. LDL, calculated 76 <=129 mg/dL [facility] Comment: Interpretive Data Ages < or [...] was last revised on 2018. Non-HDL Cholesterol 124 mg/dL [facility] Comment: Interpretive Data Ages < or [...] revised on 2018. Chol/HDL ratio 3 [facility] Blood 05/17/2022 11:3 4 AM [employer] 05/17/2022 12:37 PM [employer] us Eren Cr MD LAB BLOOD ORDERABLES Final Re sult Performing Organization Address [facility] Co de Phone Number [facility] Department of Laboratories [place], [place] [id number] * (ABNORMAL) Phosphorus (05/17/2022 11:34 AM [employer]) [facility] Phosphorus, pl 2.0(L) 2.3 - 4.5 mg/dL [facility] Comment:Testing performed by : [address] [address] Blood 05/17/2022 11:3 4 AM [employer] 05/17/2022 11:36 AM [employer] Eren Cr MD LAB BLOOD ORDERABLES Final Re sult Performing Organization Address City/[facility] Co de Phone Number [facility] [place] [address] * (ABNORMAL) Vitamin D 25 hydroxy (05/17/2022 11:34 AM [employer]) [facility] Vitamin D 25-OH 24(L) 30 - 80 ng/mL [facility] Blood 05/17/2022 11:3 4 AM [employer] 05/17/2022 12:37 PM [employer] us Eren Cr MD LAB BLOOD ORDERABLES Final Re sult [facility] Department [place] [address] documented in this encounter Visit Diagnoses Diagnosis Neuroendocrine carcinoma (HCC) Other malignant neoplasm of unspecified site Malignant neoplasm metastatic to liver (HCC) Neuro-endocrine carcinoma (HCC) Other malignant neoplasm of unspecified site Hypothyroidism due to medication documented in this encounter Care Teams Manager Development Relationship Specialty Start Date End Date Julio César Briseno MD PCP - General 10/01/16 Eren Cr MD Referring Physician Medical Oncology 11/25/18 Yohana Bowen MD Radiation Oncologist Radiation Oncology 11/25/18 documented as of this encounter
--- OUTSIDE RECORDS SUMMARY | 2024-06-25 22:18 | XMS_ITS | Encounter Summary ---
Author Organization [facility] Address [address] [place] [address] Phone Care Team Providers Care Residential Mental Health Worker Name Role Phone Julio César Briseno MD Primary Care Provider [phone] Eren Cr MD Unavailable [phone] Yohana Bowen MD Unavailable Reason for Visit * Reason Comments OP Infusion * Episode Based Medications (Routine) - Authorized Specialty Diagnoses / Procedures Referred By Contac t Referred To Contact Diagnoses Hypomagnesemia Eren Cr MD [address] [facility] [address] [place] [address] Phone: tel: fax: [facility] [address] [facility] 7th [place] [address] Phone: tel: Referral ID Status Reason Start Date Expiration Date V isits Requested Visits Authorized [id number] Authorized 11/13/2021 04/01/2025 1 30 Encounter Details Date Type Department Care Team (Late st Contact Info) Description 04/26/2022 3:00 PM CDT Infusion [facility] Oncology [address] [place] [address] 7th [place] [address] 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) (Primary Dx); 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); Dehydration; Neuroendocrine carcinoma (CMS/HCC) (HCC) Social History [...] on file Legal Sex Female 2:41 PM [employer] Gender Identity Not on file Sexual Orientation Straight 02/19/2021 9: 29 AM CDT Occupation Industry Job Start Date Job End Date retired Not on file Not on file Not on file documented as of this encounter Last Filed Vital Signs Vital Sign Reading Time Taken Comments Blood Pressure 132/83 04/26/2022 3:03 PM CDT Pulse 80 04/26/2022 3:03 PM CDT Temperature 36.5 ??C (97.7 ??F) 04/26/2022 3:03 PM CD T Respiratory Rate 18 04/26/2022 3:03 PM CDT Oxygen Saturation 99% 04/26/2022 3:03 PM CDT Inhaled Oxygen Concentration - - Weight 76.6 kg (168 lb 12.8 oz) 04/26/2022 3:03 PM CDT Height - - Body Mass Index 29.9 04/09/2022 7:02 PM CDT documented in this encounter Nursing Notes * Brii Stevens, [place] - 04/26/2022 3:00 PM CDT Oncology Nursing Note [facility] La Chung is a 71 y.o. female who presents for IVF. Pre-treatment Nursing Assessment Nursing Assessment Appetite: Fair Diarrhea: Yes (ostomy) Constipation: No Existing Patients: Any falls since your last visit?: No New Patients: Any falls since your last visit?: N/A Fatigue: Constant Mouth Sores: No Nausea/Vomiting: No Neurological symptoms: No Pain: No Peripheral Neuropathy: No Pt states has potential to be ?: No Shortness of Breath?: No Lungs auscultated PRN: No Pt is on oxygen?: No Skin Condition/Temp: Warm, Dry Oral Mucosa Grade: Normal (0) Abdomen: Soft Swelling: No Additional Notes: BP: 132/83 Temp: 36.5 ??C (97.7 ??F) Temp src: Transdermal Pulse: 80 Resp: 18 SpO2: 99 % Weight: 76.6 kg (168 lb 12.8 oz) Pain Score: 0 - No pain Treatment Patient: met treatment parameters Pre blood return: Mary Chung tolerated treatment well. Patient was frequently observed and monitored throughout the administration of their treatment. Additional Notes: Post blood return: Brisk IV access post infusion: NS Patient Education Treatment Education: Information/teaching given to patient including symptom management and when tashiay Response: Verbalizes understanding Discharge Plan Discharge instructions given to patient. Future appointments given and reviewed with treatment plan. Discharge Mode: Ambulatory Accompanied by: Self Discharged To: Home 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)- Primary Primary malignant neuroendocrine tumor of ileum (HCC) Dehydration Neuroendocrine carcinoma (HCC) Other malignant neoplasm of unspecified site documented in this encounter Administered Medications Inactive Administered Medications - up to 3 most recent administrations Medication Order MAR Action Action Date Dose Rate Site sodium chloride 0.9% bolus 1,000 mL 1,000 mL, intravenous, at 500 mL/hr, Administer over 2 Hours, Once, On Lydia 04/26/22 at 1515, For 1 doseIndications:Dehydration ,Neuroendocrine carcinoma (HCC) New Bag 04/26/2022 3:11 PM CDT 1,000 mL 500 mL/hr documented in this encounter Orders Medications Ordered That Brett ht Not Have Been Administered Count Last Ordered Date First Ordered Date sodium chloride 0.9% bolus 1,000 mL 2 04/26 Appointment Requests Count Last Ordered Date Fi rst Ordered Date ONCBCN INFUSION APPT REQUEST 1 04/26/2022 documented in this encounter Care Teams Residential Mental Health Worker Relationship Specialty Start Date End Date Julio César Briseno MD PCP - General 10/01/16 Eren Cr MD Referring Physician Medical Oncology 11/25/18 Yohana Bowen MD Radiation Oncologist Radiation Oncology 11/25/18 documented as of this encounter
--- OUTSIDE RECORDS SUMMARY | 2024-06-25 22:18 | XMS_ITS | Encounter Summary ---
Author Organization [facility] Healthcare Address [address] [place] [address] Care Team Providers Care Model Set Artist Name Role Phone Julio César Briseno MD Primary Care Provider [phone] Eren Cr MD Unavailable [phone] Yohana Bowen MD Unavailable Encounter Details Date Type Department Care Team (Latest Contact Info) Description 06/14/2022 9:18 AM METER INSTALLER AND REMOVER - 06/14/2022 11:59 PM METER INSTALLER AND REMOVER Hospital Encounter [address] [address] Neuroendocrine carcinoma (CMS/HCC) (HCC); Malignant neoplasm metastatic [...] on file Legal Sex Female 2:41 PM METER INSTALLER AND REMOVER Gender Identity Not on file Sexual Orientation [...] capsuleIndicatio ns:supplement Take 1 tablet by mouth control valve technician before breakfast 07/04/2016 4 cholecalciferol (VITAMIN D-3) 2,000 unit capsule Take 1 capsule (2,000 Units total) by mouth daily 30 capsule 2 04/25/2019 3 clotrimazole-bet amethasone (LOTRISONE) cream Apply 1 Application topically daily as needed (rash) 4 coenzyme [id number] 100-5 mg-unit capsuleIndicatio ns:supplement Take 1 tablet by mouth control valve technician before breakfast 4 diphenoxylate-at ropine (LOMOTIL) [...] as needed for rhinitis or allergies 4 [facility] cabozantinib/maris cebo (2018-02-122/A02 1602) 20 mg tabletIndication s:cancer study Take 1 tablet (20 mg total) by mouth nightly Take on an empty stomach (no food for 2 hours before and 1 hour after each dose).?? Avoid [place]'s Wort, grapefruit products and [place] oranges while on treatment. 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) CHROMOGRANIN A Routine 06/14/2022 9:33 AM METER INSTALLER AND REMOVER 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) CBC WITH AUTO DIFFERENTIAL Routine 06/14/2022 9:33 AM METER INSTALLER AND REMOVER 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) VITAMIN D 25 HYDROXY Routine 06/14/2022 9:33 AM METER INSTALLER AND REMOVER 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) PHOSPHORUS Routine 06/14/2022 9:33 AM METER INSTALLER AND REMOVER 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) MAGNESIUM STAT 06/14/2022 9:33 AM METER INSTALLER AND REMOVER Neuro-endocrine carcinoma (CMS/HCC) (HCC) LIPID PANEL Routine 06/14/2022 9:33 AM METER INSTALLER AND REMOVER 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) COMPREHENSIVE METABOLIC PANEL STAT 06/14/2022 9:33 AM METER INSTALLER AND REMOVER 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) documented in this encounter Results * (ABNORMAL) eGFR (06/14/2022 9:33 AM METER INSTALLER AND REMOVER) eGFR 50(L) 90 - 130 mL/min/1. 73 m2 JASON [...] interpretive data was last reviewed 2021. Blood 06/14/2022 9:33 AM METER INSTALLER AND REMOVER 06/14/2022 9:35 AM METER INSTALLER AND REMOVER us Eren Cr MD LAB BLOOD ORDERABLES Final Re sult [facility] [address] [facility] Department [place] [address] * (ABNORMAL) Differential, auto (06/14/2022 9:33 AM METER INSTALLER AND REMOVER) Neutrophil abs 2.3 1.7 - 6.5 K/cumm [facility] Comment:Testing performed by : [facility], [address] [facility] [address] Imm gran abs 0.0 0.0 - 0.1 K/cumm [facility] Lymphocyte abs 0.6(L) 0.8 - 3.3 K/cumm [facility] Monocyte abs 0.3 0.2 - 0.8 K/cumm [facility] Eosinophil abs 0.1 0.0 - 0.5 K/cumm [facility] Basophil abs 0.0 0.0 - 0.1 K/cumm [facility] Neutrophil pct 69.1 % [facility] Comment: Interpretive Data Percent cell count reference ranges are not reported, since discordance with absolute values may lead to misinterpretation of CBC data. Current Interpretive Data was last revised on 2017. Imm gran pct 0.3 % [facility] Comment: Interpretive Data Percent cell count reference ranges are not reported, since discordance with absolute values may lead to misinterpretation of CBC data. Current Interpretive Data was last revised on 2017. Lymphocyte pct 18.2 % [facility] Comment: Interpretive Data Percent cell count reference ranges are not reported, since discordance with absolute values may lead to misinterpretation of CBC data. Current Interpretive Data was last revised on 2017. Monocyte pct 8.8 % [facility] Comment: Interpretive Data Percent cell count reference ranges are not reported, since discordance with absolute values may lead to misinterpretation of CBC data. Current Interpretive Data was last revised on 2017. Eosinophil pct 3.3 % [facility] Comment: Interpretive Data Percent cell count reference ranges are not reported, since discordance with absolute values may lead to misinterpretation of CBC data. Current Interpretive Data was last revised on 2017. Basophil pct 0.3 % [facility] Comment: Interpretive Data Percent cell count reference ranges are not reported, since discordance with absolute values may lead to misinterpretation of CBC data. Current Interpretive Data was last revised on 2017. Blood 06/14/2022 9:33 AM METER INSTALLER AND REMOVER 06/14/2022 9:35 AM METER INSTALLER AND REMOVER Eren Cr MD LAB BLOOD ORDERABLES Final Re sult Performing Organization Address [facility] Co de Phone Number [facility] [place] [address] * Magnesium (06/14/2022 9:33 AM METER INSTALLER AND REMOVER) Magnesium 1.5 1.4 - 2.5 mg/dL [facility] Comment:Testing performed by : [address] [address] Blood 06/14/2022 9:33 AM METER INSTALLER AND REMOVER 06/14/2022 9:35 AM METER INSTALLER AND REMOVER Eren Cr MD LAB BLOOD ORDERABLES Final Re sult Performing Organization Address [facility] [place] [address] * (ABNORMAL) Lipid panel (06/14/2022 9:33 AM METER INSTALLER AND REMOVER) Cholesterol 155 30 - 199 mg/dL [facility] Comment: Interpretive Data Ages < [...] revised on 2018. Triglycerides 166(H) <=149 mg/dL [facility] Comment: Interpretive Data Ages < [...] revised on 2018. HDL 56 >=40 mg/dL [facility] Comment: Interpretive Data Ages < [...] LDL, calculated 66 <=129 mg/dL [facility] Comment: Interpretive Data Ages < [...] on 2018. Non-HDL Cholesterol 99 mg/dL [facility] Comment: Interpretive Data Ages [...] 2018. Chol/HDL ratio 3 [facility] Blood 06/14/2022 9:33 AM METER INSTALLER AND REMOVER 06/14/2022 10:32 AM METER INSTALLER AND REMOVER us Eren Cr MD LAB BLOOD ORDERABLES Final Re sult [facility] [address] [facility] Department [place] [address] * Phosphorus (06/14/2022 9:33 AM METER INSTALLER AND REMOVER) [facility] Phosphorus, pl 2.3 2.3 - 4.5 mg/dL [facility] Comment:Testing performed by : [facility], [address] [place] [address] Blood 06/14/2022 9:33 AM METER INSTALLER AND REMOVER 06/14/2022 9:35 AM METER INSTALLER AND REMOVER Eren Cr MD LAB BLOOD ORDERABLES Final Re sult [facility] [place] [address] * (ABNORMAL) Vitamin D 25 hydroxy (06/14/2022 9:33 AM METER INSTALLER AND REMOVER) Pathologist [facility] Vitamin D 25-OH 20(L) 30 - 80 ng/mL [facility] Blood 06/14/2022 9:33 AM METER INSTALLER AND REMOVER 06/14/2022 10:32 AM METER INSTALLER AND REMOVER Eren Cr MD LAB BLOOD ORDERABLES Final Re sult Performing Organization Address [facility] Co de Phone Number [facility] Department [place] [address] * (ABNORMAL) CBC with auto differential (06/14/2022 9:33 AM METER INSTALLER AND REMOVER) [facility] WBC 3.3(L) 3.8 - 9.9 K/cumm [facility] Comment:Testing performed by : [address] [address] Hgb 11.4(L) 11.9 - 15.5 g/dL [facility] Comment:Testing performed by : [address] [address] Hct 34.3(L) 35.6 - 45.5 % [facility] Comment:Testing performed by : [address] [address] Plt 107(L) 150 - 400 K/cumm [facility] Comment:Testing performed by : [address] [address] MPV 10.7 9.1 - 12.[address] [facility] RBC 3.49(L) 3.90 - 5.20 M/cumm [facility] MCV 98.3(H) 81.3 - 96.[address] [facility] MCH 32.7 27.1 - 33.[address] [facility] MCHC 33.2 32.3 - 35.7 g/dL [facility] RDW CV 13.7 11.1 - 14.9 % [facility] RDW SD 49.1(H) 35.7 - 48.[address] [facility] NRBC abs 0.00 0.00 - 0.01 K/cumm [facility] Blood 06/14/2022 9:33 AM METER INSTALLER AND REMOVER 06/14/2022 9:35 AM METER INSTALLER AND REMOVER us Eren Cr MD LAB BLOOD ORDERABLES Final Re sult [facility] [address] [facility] Department [place] [address] * (ABNORMAL) Comprehensive metabolic panel (06/14/2022 9:33 AM METER INSTALLER AND REMOVER) [facility] Sodium 139 135 - 145 mmol/L [facility] Comment:Testing performed by : [facility], [address] [place] [address] Potassium, pl 3.6 3.3 - 4.9 mmol/L [facility] Chloride 109 97 - 110 mmol/L [facility] CO2 25 22 - 32 mmol/L [facility] Anion gap 5 2 - 15 mmol/L [facility] BUN 16 8 - 25 mg/dL [facility] Creatinine 1.15(H) 0.60 - 1.10 mg/dL [facility] Glucose 112 70 - 199 mg/dL [facility] Comment: Interpretive Data Fasting glucose [...] 2017. Calcium 10.3 8.5 - 10.3 mg/dL [facility] Bilirubin, total 0.4 0.1 - 1.2 mg/dL [facility] Protein, pl 6.1(L) 6.5 - 8.5 g/dL [facility] Albumin 4.0 3.5 - 5.0 g/dL [facility] Alk phos 72 40 - 130 Units/L [facility] ALT 22 7 - 45 Units/L [facility] AST 32 10 - 45 Units/L [facility] Blood 06/14/2022 9:33 AM METER INSTALLER AND REMOVER 06/14/2022 9:35 AM METER INSTALLER AND REMOVER us Eren Cr MD LAB BLOOD ORDERABLES Final Re sult [facility] [address] [facility] Department [place] [address] * (ABNORMAL) Chromogranin A (06/14/2022 9:33 AM METER INSTALLER AND REMOVER) Chromogranin A 1093(H) <93 ng/mL [facility] Comment: Impaired renal or hepatic function or treatment with proton pump inhibitors may result in artifactual elevations of Chromogranin A. ADDITIONAL INFORMATION This test was developed and its performance characteristics determined by [facility] in a manner consistent with CLIA requirements. [...] a homogeneous time-resolved immunofluorescent assay manufactured by [employer] and performed on the BRAHMS Kryptor Compact Plus. ? Values obtained with different assay methods or kits may be different and cannot be used interchangeably. ? Test results cannot be interpreted as absolute evidence for the presence or absence of malignant disease. Test Performed by: [facility] [address] [place] [address] [employer] Tr[employer]: Immanuel Novak M.D. Ph.D.; CLIA# [id number] Blood 06/14/2022 9:33 AM METER INSTALLER AND REMOVER 06/14/2022 10:32 AM METER INSTALLER AND REMOVER us Eren Cr MD LAB BLOOD ORDERABLES Final Re sult [facility] [address] [facility] Department [place] [address] documented in this encounter Visit Diagnoses Diagnosis Neuroendocrine carcinoma (HCC) Other malignant neoplasm of unspecified site Malignant neoplasm metastatic to liver (HCC) Neuro-endocrine carcinoma (HCC) Other malignant neoplasm of unspecified site documented in this encounter Care Teams Model Set Artist Relationship Specialty Start Date End Date Julio César Briseno MD PCP - General 10/01/16 Eren Cr MD Referring Physician Medical Oncology 11/25/18 Yohana Bowen MD Radiation Oncologist Radiation Oncology 11/25/18 documented as of this encounter
--- OUTSIDE RECORDS SUMMARY | 2024-06-25 22:18 | XMS_ITS | Encounter Summary ---
Author Organization [facility] Healthcare Address [address] [place] [address] Care Team Providers Care Component Engineer Name Role Phone Julio César Briseno MD Primary Care Provider [phone] Eren Cr MD Unavailable [phone] Yohana Bowen MD Unavailable Encounter Details Date Type Department Care Team (Latest Contact Info) Description 06/21/2022 11:00 AM EDGE PLUGGER - 06/21/2022 11:59 PM EDGE PLUGGER Hospital Encounter [facility]) [address] [place] [address] Dehydration (Primary Dx); Neuro-endocrine carcinoma (CMS/HCC) [...] on file Legal Sex Female 2:41 PM EDGE PLUGGER Gender Identity Not on file Sexual Orientation Straight 02/19/2021 9: 29 AM CDT Occupation Industry Job Start Date Job End Date retired Not on file Not on file Not on file documented as of this encounter Last Filed Vital Signs Vital Sign Reading Time Taken Comments Blood Pressure 169/77 06/21/2022 1:30 PM EDGE PLUGGER Pulse 60 06/21/2022 1:30 PM EDGE PLUGGER Temperature 36.7 ??C (98.1 ??F) 06/21/2022 11:[address] Respiratory Rate 16 06/21/2022 1:30 PM EDGE PLUGGER Oxygen Saturation 100% 06/21/2022 1:30 PM EDGE PLUGGER Inhaled Oxygen Concentration - - Weight - - Height - - Body Mass Index - - documented in this encounter Discharge Instructions * Patient Instructions* Xochitl Perdue RN - 06/21/2022 11:00 AM EDGE PLUGGER .After 4:30 PM during the week, on weekends and holidays, call [phone] and ask to have the Senior Control Systems Engineer Physician paged for you. Saturday through Saturday, 8 AM to 4:30 PM, call [phone] [facility] Oncology Physician at [facility] and ask for a member [...] any non-prescription medicine without your doctor's approval PLUGGER documented in this encounter Medications at Time [...] (thirty) days Last dose 11/15/[address] [facility] has [facility] and needs Cavilon [...] capsuleIndicatio ns:supplement Take 1 tablet by mouth dial brusher before breakfast 07/04/2016 4 cholecalciferol (VITAMIN D-3) 2,000 unit capsule Take 1 capsule (2,000 Units total) by mouth daily 30 capsule 2 04/25/2019 3 clotrimazole-bet amethasone (LOTRISONE) cream Apply 1 Application topically daily as needed (rash) 4 coenzyme [id number] 100-5 mg-unit capsuleIndicatio ns:supplement Take 1 tablet by mouth dial brusher before breakfast 4 diphenoxylate-at ropine (LOMOTIL) 2.5-0.025 [...] rhinitis or allergies 4 INV-[facility] cabozantinib/maris cebo (2018-02-122/A02 1602) 20 mg tabletIndication s:cancer study Take 1 tablet (20 mg total) by mouth nightly Take on an empty stomach (no food for 2 hours before and 1 hour after each dose).?? Avoid Jas's Wort, grapefruit products and [place] oranges while on treatment. placed on hold 09/26/22 for covid 01/29/2022 4 levothyroxine (SYNTHROID) 88 mcg tabletIndication s:Hypothyroidism due to medication TAKE 1 TABLET (88 MCG TOTAL) BY MOUTH THROUGH FREIGHT ENGINEER BEFORE BREAKFAST 30 tablet 1 06/11/2022 2 [...] encounter Miscellaneous Notes * Addendum Note - Xochitl Perdue RN - 06/21/2022 11:00 AM EDGE PLUGGER Encounter addended by: Xochitl Perdue RN on: 06/21/2022 1:49 PM Actions taken: Charge Capture section accepted, Flowsheet accepted PLUGGER documented in this encounter Plan of Treatment [...] as needed, line care, Starting on Lydia 06/21/22 at 1106, Flush when all medication administered and labs completed for the day.Indications:Dehydration,N euroendocrine carcinoma (HCC) Given 06/21/2022 11:37 AM EDGE PLUGGER 500 Units sodium chloride 0.9% bolus 1,000 mL 1,000 mL, intravenous, at 500 mL/hr, Administer over 2 Hours, Once, On Lydia 06/21/22 at 1140, For 1 doseIndications:Dehydration,N euroendocrine carcinoma (HCC) New Bag 06/21/2022 11:36 AM EDGE PLUGGER 1,000 mL 500 mL/hr documented in this encounter Orders Appointment Requests Count Last Ordered Date Fi rst Ordered Date ONCBCN INFUSION APPT REQUEST 1 06/21/2022 documented in this encounter Care Teams Component Engineer Relationship Specialty Start Date End Date Julio César Briseno MD PCP - General 10/01/16 Eren Cr MD Referring Physician Medical Oncology 11/25/18 Yohana Bowen MD Radiation Oncologist Radiation Oncology 11/25/18 documented as of this encounter
--- OUTSIDE RECORDS SUMMARY | 2024-06-25 22:18 | XMS_ITS | Encounter Summary ---
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 [address] [facility] 7th [place] [address] Phone: tel: Referral ID Status Reason Start Date Expiration Date V isits Requested Visits Authorized [id number] Authorized 03/02/2019 10/06/2024 1 60 Encounter Details Date Type Department Care Team (Late st Contact Info) Description 06/14/2022 11:00 AM LANDING WORKER Infusion 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 female who presents for treatment with IVF's today. Patient continues having diarrhea intermittently. MD aware. Pt also receiving Octreotide and Xgeva injection today. Pre-treatment Nursing Assessment Nursing Assessment Appetite: Fair Diarrhea: Yes (ongoing, taking Imodium and Lomotil. Having 6-7 liquid stools daily.) Constipation: No Last BM Date: 06/14/22 Existing Patients: Any falls since your last visit?: No (some dizziness at times.) New Patients: Any falls since your last visit?: N/A Fatigue: Occassional Mouth Sores: No Nausea/Vomiting: No Neurological symptoms: No LOC: Alert Orientation: Oriented x4 Behavior: Calm Speech: Clear Language: No aphasia Vision: At baseline Pain: No Peripheral Neuropathy: No Pt states has potential to be ?: No Shortness of Breath?: No Lungs auscultated PRN: No Pt is on oxygen?: No Skin Condition/Temp: Warm, Dry, No swelling Oral Mucosa Grade: Normal (0) Abdomen: Soft Swelling: No BP: 147/68 Temp: 36.8 ??C (98.2 ??F) Temp src: Oral Pulse: 77 Resp: 17 SpO2: 96 % Weight: 76.5 kg (168 lb 9.6 oz) (shoes off) Pain Score: 1 Treatment Patient: met treatment parameters. Phos level is 2.3 today and okay to receive Xgeva today. Pre blood return: Mary Chung tolerated [...] treatment plan. Discharge Mode: Ambulatory Accompanied by: Friend Discharged To: Home ING WORKER documented in this encounter Plan of [...] mg 120 mg, subcutaneous, Once, On Lydia 06/14/22 at 1230, For 1 dose, Calcium level should be greater than 8 mg/dl Administer injection in upper arm, abdomen or upper thigh Refrigerate. Allow to stand 15 to 30 mins prior to useIndications:Bone metastasis,Neuro-endocr ine carcinoma (HCC) Given 06/14/2022 12:55 PM LANDING WORKER 120 mg Right Lower Abdomen heparin 100 unit/mL flush 500 Units 500 Units (5 mL), IV flush, Once as needed, line care, Starting on Lydia 06/14/22 at 1048, Flush when all medication administered and labs completed for the day.Indications:Dehydra tion,Neuroendocrine carcinoma (HCC) Given 06/14/2022 10:56 AM LANDING WORKER 500 Units octreotide LAR (SandoSTATIN LAR) extended release intramuscular injection 30 mg 30 mg, intramuscular, Once, On Lydia 06/14/22 at 1145, For 1 dose, Refrigerate. For IM intragluteal administration only- alternate gluteal sites. Shake.Indications:Malig nant neoplasm metastatic to liver (HCC),Neuroendocrine carcinoma (HCC) Given 06/14/2022 1:07 PM LANDING WORKER 30 mg Right Dorsogluteal/But tock ondansetron (ZOFRAN) injection 8 mg 8 mg, intravenous, Administer over 2 Minutes, Once, On Lydia 06/14/22 at 1300, For 1 doseIndications:Bone metastasis,Neuro-endocr ine carcinoma (HCC) Given 06/14/2022 12:29 PM LANDING WORKER 8 mg sodium chloride 0.9% bolus 1,000 mL 1,000 mL, intravenous, at 500 mL/hr, Administer over 2 Hours, Once, On Lydia 06/14/22 at 1130, For 1 doseIndications:Dehydra tion,Neuroendocrine carcinoma (HCC) New Bag 06/14/2022 10:55 AM LANDING WORKER 1,000 mL 500 mL/hr documented in this encounter Orders Medications Ordered That Brett ht Not Have Been Administered Count Last Ordered Date First Ordered Date sodium chloride 0.9% flush 10 mL 1 06/14/20 Nursing Count Last Ordered Date First Orde red Date ONCBCN NURSING COMMUNICATION [id number] 1 06/14 ONCBCN NURSING COMMUNICATION [id number] 1 1 08/15/2021 PHYSICIAN COMMUNICATION ORDER 1 06/14/2022 Appointment Requests Count Last Ordered Date Fi rst Ordered Date ONCBCN INFUSION APPT REQUEST 1 06/14/2022 documented in this encounter Care Teams Lead Technologist In Cytogenetics Relationship Specialty Start Date End Date Julio César Briseno MD PCP - General 10/01/16 Eren Cr MD Referring Physician Medical Oncology 11/25/18 Yohana Bowen MD Radiation Oncologist Radiation Oncology 11/25/18 documented as of this encounter
--- OUTSIDE RECORDS SUMMARY | 2024-06-25 22:18 | XMS_ITS | Encounter Summary ---
Author Organization [facility] Address [address] [place] [address] Phone Care Team Providers Care Loan Manager Name Role Phone Julio César Briseno MD Primary Care Provider [phone] Eren Cr MD Unavailable [phone] Yohana Bowen MD Unavailable Reason for Visit * Episode Based Medications (Routine) - Authorized Specialty Diagnoses / Procedures Referred By Contellen t Referred To Contact Diagnoses Hypomagnesemia Eren Cr MD [address] [facility] [address] [place] [address] Phone: tel: fax: [facility] at [facility] and [facility] 7th [place] [address] Phone: tel: Referral ID Status Reason Start Date Expiration Date V isits Requested Visits Authorized [id number] Authorized 11/13/2021 04/01/2025 30 Encounter Details Date Type Department Care Team (Late st Contact Info) Description 05/03/2022 3:30 PM CDT Infusion [facility] Oncology [address] [place] [address] Advanced Medicine 7th [place] [address] 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) (Primary Dx); 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); Dehydration; Neuroendocrine carcinoma (CMS/HCC) (HCC); [...] file Legal Sex Female 2:41 PM PROGRAM ASSISTANT Gender Identity Not on file Sexual Orientation Straight 02/19/2021 9: 29 AM CDT Occupation Industry Job Start Date Job End Date retired Not on file Not on file Not on file documented as of this encounter Last Filed Vital Signs Vital Sign Reading Time Taken Comments Blood Pressure 150/82 05/03/2022 4:17 PM CDT Pulse 70 05/03/2022 4:17 PM CDT Temperature 36.8 ??C (98.3 ??F) 05/03/2022 4:17 PM CD T Respiratory Rate 20 05/03/2022 4:17 PM CDT Oxygen Saturation 97% 05/03/2022 4:17 PM CDT Inhaled Oxygen Concentration - - Weight 76.7 kg (169 lb) 05/03/2022 4:17 PM CDT Height - - Body Mass Index 29.94 04/09/2022 7:02 PM CDT documented in this encounter Nursing Notes * Renetta Quijano, RN - 05/03/2022 3:30 PM CDT P/t here for 1L NS bolus over 2 hours, w/. D/C UAL, stable, to home, w/spouse.Tolerated fluids well. Port positive blood-return, deaccessed. documented in this encounter Plan of Treatment [...] as needed, nausea, vomiting, Starting on Lydia 05/03/22 at 1624, For 1 doseIndications:Hypophospha temia Given 05/03/2022 5:48 PM CDT 8 mg sodium chloride 0.9% bolus 1,000 mL 1,000 mL, intravenous, at 500 mL/hr, Administer over 2 Hours, Once, On Lydia 05/03/22 at 1630, For 1 doseIndications:Dehydration ,Neuroendocrine carcinoma (HCC) New Bag 05/03/2022 4:10 PM CDT 1,000 mL 500 mL/hr documented in this encounter Orders Appointment Requests Count Last Ordered Date Fi rst Ordered Date ONCBCN INFUSION APPT REQUEST 1 05/03/2022 documented in this encounter Care Teams Loan Manager Relationship Specialty Start Date End Date Julio César Briseno MD PCP - General 10/01/16 Eren Cr MD Referring Physician Medical Oncology 11/25/18 Yohana Bowen MD Radiation Oncologist Radiation Oncology 11/25/18 documented as of this encounter
--- OUTSIDE RECORDS SUMMARY | 2024-06-25 22:18 | XMS_ITS | Encounter Summary ---
Author Organization [facility] Address [address] [place] [address] Phone Care Team Providers Care Senior Oracle Pl Sql Developer Name Role Phone Julio César Briseno MD Primary Care Provider [phone] Eren Cr MD Unavailable [phone] Yohana Bowen MD Unavailable Reason for Visit * Episode Based Medications (Routine) - Authorized Specialty Diagnoses / Procedures Referred By Contellen t Referred To Contact Diagnoses Hypomagnesemia Eren Cr MD [address] [facility] [address] [place] [address] Phone: tel: fax: [facility] at [facility] and [facility]5 [facility] 7th [place] [address] Phone: tel: Referral ID Status Reason Start Date Expiration Date V isits Requested Visits Authorized [id number] Authorized 11/13/2021 04/01/2025 30 Encounter Details Date Type Department Care Team (Late st Contact Info) Description 05/10/2022 3:30 PM CDT Infusion [facility] Oncology [address] [place] [address] Advanced Medicine 7th [place] [address] Malignant neoplasm metastatic to liver [...] on file Legal Sex Female 2:41 PM EXERCISE RIDER Gender Identity Not on file Sexual Orientation Straight 02/19/2021 9: 29 AM CDT Occupation Industry Job Start Date Job End Date retired Not on file Not on file Not on file documented as of this encounter Last Filed Vital Signs Vital Sign Reading Time Taken Comments Blood Pressure 158/81 05/10/2022 3:42 PM CDT Pulse 70 05/10/2022 3:42 PM CDT Temperature 36.3 ??C (97.3 ??F) 05/10/2022 3:42 PM CD T Respiratory Rate 18 05/10/2022 3:42 PM CDT Oxygen Saturation 97% 05/10/2022 3:42 PM CDT Inhaled Oxygen Concentration - - Weight 77.9 kg (171 lb 12.8 oz) 05/10/2022 3:42 PM CDT Height - - Body Mass Index 30.43 04/09/2022 7:02 PM CDT documented in this encounter Nursing Notes * Soniya Cardenas, IRVING - 05/10/2022 3:30 PM CDT Oncology Nursing Note [facility] La Chung is a 71 y.o. female who presents for treatment of 1L of NS. Pre-treatment Nursing Assessment Nursing Assessment Appetite: Good Diarrhea: No Constipation: No Last BM Date: 05/10/22 Existing Patients: Any falls since your last [...] Abdomen: Soft Swelling: No Additional Notes: BP: 158/81 Temp: 36.3 ??C (97.3 ??F) Temp src: Transdermal Pulse: 70 Resp: 18 SpO2: 97 % Weight: 77.9 kg (171 lb 12.8 oz) Pain Score: 0 - No pain Treatment Pre blood return: Brisk Hand off report to Brianda Hughes RN. * Brianda Hughes RN - 05/10/2022 3:30 PM CDT Oncology Nursing Note [facility] Assumed care of La Chung for remainder of treatment on 05/10/2022. Treatment La Chung tolerated treatment well. Additional Notes: Post blood return: Brisk IV access post infusion: NS and Heparin 100 units/mL Discharge Plan Discharge instructions given to patient. [...] as needed, line care, Starting on Lydia 05/10/22 at 1733, Flush with Heparin immediately prior to de-accessing port.Indications:Hypophosph atemia Given 05/10/2022 5:44 PM CDT 500 Units sodium chloride 0.9% bolus 1,000 mL 1,000 mL, intravenous, at 500 mL/hr, Administer over 2 Hours, Once, On Lydia 05/10/22 at 1630, For 1 doseIndications:Dehydration ,Neuroendocrine carcinoma (HCC) New Bag 05/10/2022 3:40 PM CDT 1,000 mL 500 mL/hr documented in this encounter Orders Medications Ordered That Brett ht Not Have Been Administered Count Last Ordered Date First Ordered Date sodium chloride 0.45% bolus 90 mL 1 022 sodium chloride 0.9% bolus 90 mL 1 05/10/20 22 Appointment Requests Count Last Ordered Date Fi rst Ordered Date ONCBCN INFUSION APPT REQUEST 1 05/10/2022 documented in this encounter Care Teams Senior Oracle Pl Sql Developer Relationship Specialty Start Date End Date Julio César Briseno MD PCP - General 10/01/16 Eren Cr MD Referring Physician Medical Oncology 11/25/18 Yohana Bowen MD Radiation Oncologist Radiation Oncology 11/25/18 documented as of this encounter
--- OUTSIDE RECORDS SUMMARY | 2024-06-25 22:18 | XMS_ITS | Encounter Summary ---
Author Organization [facility] Address [address] [place] [address] Phone Care Team Providers Care Potable Water Treatment Operator Name Role Phone Julio César Briseno MD Primary Care Provider [phone] Eren Cr MD Unavailable [phone] Yohana Bowen MD Unavailable Reason for Visit * Reason Comments Port Draw * Episode Based Medications (Routine) - Closed Specialty Diagnoses / Procedures Referred By Contellen t Referred To Contact Diagnoses Neuro-endocrine carcinoma (HCC) Procedures study [id number] phase III cabozantinib Eren Cr MD [address] [place] [address] Phone: tel: fax: [facility] and [facility] [address] [facility] Advanced Medicine 7th [place] [address] Phone: tel: Referral ID Status Reason Start Date Expiration Date Visits Re quested Visits Authorized [id number] Closed 06/21/2021 06/26/2024 1 99 Encounter Details Date Type Department Care Team (Latest Contact Info) Description 05/17/2022 11:00 AM ORTHOPEDIC PHYSICAL THERAPIST Clinical Support [facility] Oncology [address] [place] [address] Neuro-endocrine carcinoma (CMS/HCC) (HCC) Social History Tobacco [...] file Legal Sex Female 2:41 PM ORTHOPEDIC PHYSICAL THERAPIST Gender Identity Not on file Sexual Orientation [...] rst Ordered Date ONCBCN LAB APPOINTMENT 1 05/17/2022 documented in this encounter Care Teams Potable Water Treatment Operator Relationship Specialty Start Date End Date Julio César Briseno MD PCP - General 10/01/16 Eren Cr MD Referring Physician Medical Oncology 11/25/18 Yohana Bowen MD Radiation Oncologist Radiation Oncology 11/25/18 documented as of this encounter
--- OUTSIDE RECORDS SUMMARY | 2024-06-25 22:18 | XMS_ITS | Encounter Summary ---
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 (HCC) Procedures PA OCTREOTIDE INJECTION, DEPOT Octreotide 28 Day Cycles - Carcinoid Eren Cr MD [address] [place] [address] Phone: tel: fax: [address] [address] Phone: tel: fax: Referral ID Status Reason Start Date Expiration Date V isits Requested Visits Authorized [id number] Authorized 11/28/2017 02/05/2025 1 150 Encounter Details Date Type Department Care Team (Late st Contact Info) Description 06/14/2022 11:15 AM CERTIFICATION AND SELECTION SPECIALIST Infusion [facility] Oncology [address] [place] [address] Neuroendocrine carcinoma (CMS/HCC) (HCC); Malignant neoplasm metastatic [...] on file Legal Sex Female 2:41 PM CERTIFICATION AND SELECTION SPECIALIST Gender Identity Not on file Sexual [...] Ordered Date ONCBCN INJECTION APPOINTMENT REQUEST 1 02/2022 documented in this encounter Care Teams Contact Center Assistant Relationship Specialty Start Date End Date Julio César Briseno MD PCP - General 10/01/16 Eren Cr MD Referring Physician Medical Oncology 11/25/18 Yohana Bowen MD Radiation Oncologist Radiation Oncology 11/25/18 documented as of this encounter
--- OUTSIDE RECORDS SUMMARY | 2024-06-25 22:18 | XMS_ITS | Encounter Summary ---
Author Organization [facility] Healthcare Address [facility] [place] [address] Care Team Providers Care Transportation Solutions Manager Name Role Phone Julio César Briseno MD Primary Care Provider [phone] Eren Cr MD Unavailable [phone] Yohana Bowen MD Unavailable Reason for Visit * Reason Comments OP Infusion Encounter Details Date Type Department Care Team (Latest Contact Info) Description 06/28/2022 10:45 AM CHEMICAL SALES REPRESENTATIVE - 06/28/2022 11:59 PM CHEMICAL SALES REPRESENTATIVE Hospital Encounter [facility] Advanced [facility] ([facility]) [address] [place] [address] Dehydration (Primary Dx); Neuro-endocrine carcinoma (CMS/HCC) [...] on file Legal Sex Female 2:41 PM CHEMICAL SALES REPRESENTATIVE Gender Identity Not on file Sexual Orientation Straight 02/19/2021 9: 29 AM CDT Occupation Industry Job Start Date Job End Date retired Not on file Not on file Not on file documented as of this encounter Last Filed Vital Signs Vital Sign Reading Time Taken Comments Blood Pressure 157/82 06/28/2022 11:01 AM CHEMICAL SALES REPRESENTATIVE Pulse 75 06/28/2022 11:01 AM CHEMICAL SALES REPRESENTATIVE Temperature 36.7 ??C (98 ??F) 06/28/2022 11:01 AM CHEMICAL SALES REPRESENTATIVE Respiratory Rate 16 06/28/2022 11:01 AM CHEMICAL SALES REPRESENTATIVE Oxygen Saturation 96% 06/28/2022 11:01 AM CHEMICAL SALES REPRESENTATIVE Inhaled Oxygen Concentration - - Weight - [...] (thirty) days Last dose 11/15/22 [facility] and needs Cavilon 3M [...] capsuleIndicatio ns:supplement Take 1 tablet by mouth president & ceo before breakfast 07/04/2016 4 cholecalciferol (VITAMIN D-3) 2,000 unit capsule Take 1 capsule (2,000 Units total) by mouth daily 30 capsule 2 04/25/2019 3 clotrimazole-bet amethasone (LOTRISONE) cream Apply 1 Application topically daily as needed (rash) 4 coenzyme S88-pagrzoe E 100-5 mg-unit capsuleIndicatio ns:supplement Take 1 tablet by mouth president & ceo before breakfast 4 diphenoxylate-at ropine (LOMOTIL) 2.5-0.025 [...] as needed for rhinitis or allergies 4 [facility] cabozantinib/maris cebo (2017-08-122/A02 1602) 20 mg tabletIndication s:cancer study Take 1 tablet (20 mg total) by mouth nightly Take on an empty stomach (no food for 2 hours before and 1 hour after each dose).?? Avoid Jas's Wort, grapefruit products and [place] oranges while on treatment. placed on hold 09/26/22 for covid 01/29/2022 4 levothyroxine (SYNTHROID) 88 mcg tabletIndication s:Hypothyroidism due to medication TAKE 1 TABLET (88 MCG TOTAL) BY MOUTH HISTOLOGY AIDE BEFORE BREAKFAST 30 tablet 1 06/11/2022 2 [...] Nursing Notes * Kelly Kohler RN - 06/28/2022 11:00 AM CST Pt presented to the [facility] for hydration. VS WNL. PAC accessed. Brisk blood return, flushes easily. Administered 1L NS. Pt tolerated well. VS WNL. PAC flushed, heparinized, and discontinued. AVS declined. Pt ambulatory and discharged home accompanied by . ICAL SALES REPRESENTATIVE documented in this encounter Plan of Treatment [...] as needed, line care, Starting on Lydia 06/28/22 at 1051, Flush when all medication administered and labs completed for the day.Indications:Dehydration,N euroendocrine carcinoma (HCC) Given 06/28/2022 12:40 PM CHEMICAL SALES REPRESENTATIVE 500 Units sodium chloride 0.9% bolus 1,000 mL 1,000 mL, intravenous, at 500 mL/hr, Administer over 2 Hours, Once, On Lydia 06/28/22 at 1125, For 1 doseIndications:Dehydration,N euroendocrine carcinoma (HCC) New Bag 06/28/2022 11:03 AM CHEMICAL SALES REPRESENTATIVE 1,000 mL 500 mL/hr documented in this encounter Orders Medications Ordered That Brett ht Not Have Been Administered Count Last Ordered Date First Ordered Date sodium chloride 0.9% bolus 1,000 mL 1 06/28 sodium chloride 0.9% flush 10 mL 1 06/28/20 Nursing Count Last Ordered Date First Orde red Date CENTRAL LINE DRESSING 1 06/28/2022 Appointment Requests Count Last Ordered Date Fi rst Ordered Date ONCBCN INFUSION APPT REQUEST 1 06/28/2022 documented in this encounter Care Teams Transportation Solutions Manager Relationship Specialty Start Date End Date Julio César Briseno MD PCP - General 10/01/16 Eren Cr MD Referring Physician Medical Oncology 11/25/18 Yohana Bowen MD Radiation Oncologist Radiation Oncology 11/25/18 documented as of this encounter
--- OUTSIDE RECORDS SUMMARY | 2024-06-25 22:18 | XMS_ITS | Encounter Summary ---
Author Organization [facility] Address [address] [place] [address] Phone Care Team Providers Care Set Up Mechanic Coating Machines Name Role Phone Julio César Briseno MD Primary Care Provider Eren Cr MD Unavailable [phone] Yohana Bowen MD Unavailable Encounter Details Date Type Department Care Team (Late st Contact Info) Description 06/13/2022 Orders Only [facility] Oncology [address] [place] [address] Eren Cr MD [address] [facility] [address] [place], [place] [id number] Dehydration (Primary Dx); Neuro-endocrine carcinoma (CMS/HCC) (HCC) [...] on file Legal 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
--- OUTSIDE RECORDS SUMMARY | 2024-06-25 22:18 | XMS_ITS | Encounter Summary ---
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) Procedures DC DENOSUMAB INJECTION DENOSUMAB (XGEVA) Eren Cr MD [address] [facility] [address] [place] [address] Phone: tel: fax: [facility] at [facility] and [facility] [address] [facility] Advanced Medicine 7th [place] [address] Phone: tel: Referral ID Status Reason Start Date Expiration Date V isits Requested Visits Authorized [id number] Authorized 03/02/2019 10/06/2024 1 60 Encounter Details Date Type Department Care Team (Late st Contact Info) Description 05/17/2022 12:00 PM LICENSED MASSAGE THERAPIST Infusion [facility] Oncology [address] [place] [address] 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) [...] on file Legal Sex Female 2:41 PM LICENSED MASSAGE THERAPIST Gender Identity Not on file Sexual Orientation Straight 02/19/2021 9: 29 AM CDT Occupation Industry Job Start Date Job End Date retired Not on file Not on file Not on file documented as of this encounter Nursing Notes * Babs Stokes, RN - 05/17/2022 12:00 PM CST Oncology Nursing Note [facility] La Chung is a 71 y.o. female who presents for treatment of NS 1 Liter over 2 hours Pre-treatment Nursing Assessment Nursing Assessment Appetite: Fair Diarrhea: Yes (takes imodium, lomitol) Constipation: No Existing Patients: Any falls since your last visit?: No Fatigue: Occassional Mouth Sores: No Nausea/Vomiting: Yes (occasional nausea) Neurological symptoms: Yes LOC: Alert (lightheaded and dizzy) Orientation: Oriented x4 Behavior: Calm Speech: Clear Language: No aphasia Vision: At baseline (hearing loss; evaluted by bench worker binding) Other neuro symptoms: Other: (comment) Pain: No Peripheral Neuropathy: No Pt states has potential to be ?: N/A Shortness of Breath?: Yes Lungs auscultated PRN: No Pt is on oxygen?: No Respiratory Effort Characteristics: Dyspnea exertion Skin Condition/Temp: Warm, Dry, No swelling Swelling: No Additional Notes: Phos level today was 2.0. Xgeva held and instructions given to patient to start taking K phos. Patient has this prescription at home already. Patient became nauseated during fluids.IV zofran given and did bring relief. Patient also given study drug by pharmacy. BP: 149/76 Temp: 36.2 ??C (97.1 ??F) Temp src: Temporal Pulse: 84 Resp: 16 SpO2: 96 % Weight: 76.4 kg (168 lb 6.4 oz) Treatment Patient: met treatment parameters Pre [...] Ambulatory Accompanied by: Self Discharged To: Home NSED MASSAGE THERAPIST NSED MASSAGE THERAPIST * Babs Stokes RN - 05/17/2022 12:00 PM CST Oncology Nursing Note [facility] La Chung is a 71 y.o. female who presents for the following injection: Octreotide IM given Nursing Assessment Nursing Assessment Appetite: Fair Diarrhea: Yes (takes imodium, lomitol) Constipation: No Existing Patients: Any falls since your last visit?: No Fatigue: Occassional Mouth Sores: No Nausea/Vomiting: Yes (occasional nausea) Neurological symptoms: Yes LOC: Alert (lightheaded and dizzy) Orientation: Oriented x4 Behavior: Calm Speech: Clear Language: No aphasia Vision: At baseline (hearing loss; evaluted by bench worker binding) Other neuro symptoms: Other: (comment) Pain: No Peripheral Neuropathy: No Pt states has potential to be ?: N/A Shortness of Breath?: Yes Lungs auscultated PRN: No Pt is on oxygen?: No Respiratory Effort Characteristics: Dyspnea exertion Skin Condition/Temp: Warm, Dry, No swelling Swelling: No Additional Notes: BP: 149/76 Temp: 36.2 ??C (97.1 ??F) Temp src: Temporal Pulse: 84 Resp: 16 SpO2: 96 % Weight: 76.4 kg (168 lb 6.4 oz) Patient: met treatment parameters La Chung tolerated injection well Additional Notes: NSED MASSAGE THERAPIST documented in this encounter Plan of Treatment [...] mg 30 mg, intramuscular, Once, On Lydia 05/17/22 at 1500, For 1 dose, Refrigerate. For IM intragluteal administration only- alternate gluteal sites. Shake.Indications:Maligna nt neoplasm metastatic to liver (HCC),Neuroendocrine carcinoma (HCC) Given 05/17/2022 4:21 PM LICENSED MASSAGE THERAPIST 30 mg Left Dorsogluteal/B uttock ondansetron (ZOFRAN) injection 8 mg 8 mg, intravenous, Administer over 2 Minutes, Once as needed, nausea, vomiting, Starting on Lydia 05/17/22 at 1555, For 1 doseIndications:Hypophosp hatemia Given 05/17/2022 3:56 PM LICENSED MASSAGE THERAPIST 8 mg sodium chloride 0.9% bolus 1,000 mL 1,000 mL, intravenous, at 500 mL/hr, Administer over 2 Hours, Once, On Lydia 05/17/22 at 1445, For 1 doseIndications:Dehydrati on,Neuroendocrine carcinoma (HCC) New Bag 05/17/2022 2:14 PM LICENSED MASSAGE THERAPIST 1,000 mL 500 mL/hr documented in this encounter Orders Medications Ordered That Brett ht Not Have Been Administered Count Last Ordered Date First Ordered Date sodium chloride 0.9% bolus 1,000 mL 1 05/17 Nursing Count Last Ordered Date First Orde red Date ONCBCN NURSING COMMUNICATION [id number] 1 05/17 Appointment Requests Count Last Ordered Date Fi rst Ordered Date ONCBCN INFUSION APPT REQUEST 1 05/17/2022 documented in this encounter Care Teams Doughnut Icer Machine Relationship Specialty Start Date End Date Julio César Briseno MD PCP - General 10/01/16 Eren Cr MD Referring Physician Medical Oncology 11/25/18 Yohana Bowen MD Radiation Oncologist Radiation Oncology 11/25/18 documented as of this encounter
--- OUTSIDE RECORDS SUMMARY | 2024-06-25 22:18 | XMS_ITS | Encounter Summary ---
Author Organization [facility] Address [address] [place] [address] Phone Care Team Providers Care Tobacco Wetter Name Role Phone Julio César Briseno MD Primary Care Provider Eren Cr MD Unavailable [phone] Yohana Bowen MD Unavailable Encounter Details Date Type Department Care Team (Late st Contact Info) Description 05/17/2022 Orders Only [facility] Oncology [address] [place] [address] Eren Cr MD [address] [employer], [place] [id number] Social History Tobacco Use Types Packs/Day Years [...] on file Legal Sex Female 2:41 PM PIZZA DELIVERY Gender Identity Not on file Sexual Orientation Straight 02/19/2021 9: 29 AM CDT Occupation Industry Job Start Date Job End Date retired Not on file Not on file Not on file documented as of this encounter Plan of Treatment Not on file documented as of this encounter Visit Diagnoses Not on filedocumented in this encounter Care Teams Tobacco Wetter Relationship Specialty Start Date End Date Julio César Briseno MD PCP - General 10/01/16 Eren Cr MD Referring Physician Medical Oncology 11/25/18 Yohana Bowen MD Radiation Oncologist Radiation Oncology 11/25/18 documented as of this encounter
--- OUTSIDE RECORDS SUMMARY | 2024-06-25 22:18 | XMS_ITS | Encounter Summary ---
Author Organization [facility] Address [address] [place] [address] Phone Care Team Providers Care Wave Solder Offbearer Name Role Phone Julio César Briseno MD Primary Care Provider [phone] Eren Cr MD Unavailable [phone] Yohana Bowen MD Unavailable Reason for Visit * Reason Comments Injections * Episode Based Medications (Routine) - Authorized Specialty Diagnoses / Procedures Referred By Contellen t Referred To Contact Oncology Diagnoses Neuroendocrine carcinoma (HCC) Malignant neoplasm metastatic to liver (HCC) Procedures [place] OCTREOTIDE INJECTION, DEPOT Octreotide 28 Day Cycles - Carcinoid Eren Cr MD [address] [place] [address] Phone: tel: fax: [address] [address] Phone: tel: fax: Referral ID Status Reason Start Date Expiration Date V isits Requested Visits Authorized [id number] Authorized 11/28/2017 02/05/2025 1 150 Encounter Details Date Type Department Care Team (Late st Contact Info) Description 04/19/2022 12:00 PM CDT Infusion [facility] Oncology [address] [place] [address] Neuroendocrine carcinoma (CMS/HCC) (HCC) (Primary Dx); Malignant [...] on file Legal Sex Female 2:41 PM 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 Gender Identity Not on file Sexual [...] (XGEVA) subcutaneo us syringe 120 mg 1 04/19/2022 Nursing Count Last Ordered Date First Orde red Date ONCBCN NURSING COMMUNICATION [id number] 1 1 PHYSICIAN COMMUNICATION ORDER 1 04/19/2022 Appointment Requests Count Last Ordered Date Fi rst Ordered Date ONCBCN INJECTION APPOINTMENT REQUEST 1 04/07 documented in this encounter Care Teams Wave Solder Offbearer Relationship Specialty Start Date End Date Julio César Briseno MD PCP - General 10/01/16 Eren Cr MD Referring Physician Medical Oncology 11/25/18 Yohana Bowen MD Radiation Oncologist Radiation Oncology 11/25/18 documented as of this encounter
--- OUTSIDE RECORDS SUMMARY | 2024-06-25 22:18 | XMS_ITS | Encounter Summary ---
Author Organization [facility] Address [address] [place] [address] Phone Care Team Providers Care Production Reproduction Manager Name Role Phone Julio César Briseno MD Primary Care Provider [phone] Eren Cr MD Unavailable [phone] Yohana Bowen MD Unavailable Encounter Details Date Type Department Care Team (Late st Contact Info) Description 04/19/2022 Orders Only [facility] Oncology [address] [place] [address] Eren Cr MD [address] [place], [place] [id number] Social History Tobacco Use Types Packs/Day Years [...] on file Legal Sex Female 2:41 PM CLINIC PHYSICIAN DIRECTOR Gender Identity Not on file Sexual Orientation Straight 02/19/2021 9: 29 AM CDT Occupation Industry Job Start Date Job End Date retired Not on file Not on file Not on file documented as of this encounter Plan of Treatment Not on file documented as of this encounter Visit Diagnoses Not on filedocumented in this encounter Care Teams Production Reproduction Manager Relationship Specialty Start Date End Date Julio César Briseno MD PCP - General 10/01/16 Eren Cr MD Referring Physician Medical Oncology 11/25/18 Yohana Bowen MD Radiation Oncologist Radiation Oncology 11/25/18 documented as of this encounter
--- OUTSIDE RECORDS SUMMARY | 2024-06-25 22:18 | XMS_ITS | Encounter Summary ---
Author Organization [facility] Address [address] [place] [address] Phone Care Team Providers Care Survey Crew Chief Name Role Phone Julio César Briseno MD Primary Care Provider [phone] Eren Cr MD Unavailable [phone] Yohana Bowen MD Unavailable Encounter Details Date Type Department Care Team (Late st Contact Info) Description 07/03/2022 Orders Only [facility] Oncology [address] [place] [address] Eren Cr MD [address] [facility] [address] [place], [place] [id number] Dehydration (Primary Dx); Neuro-endocrine carcinoma (CMS/HCC) (HCC) [...] on file Legal Sex Female 2:41 PM TRAVELING REPRESENTATIVE Gender Identity Not on file Sexual [...] 07/12/2022 documented in this encounter Care Teams Survey Crew Chief Relationship Specialty Start Date End Date Julio César Briseno MD PCP - General 10/01/16 Eren Cr MD Referring Physician Medical Oncology 11/25/18 Yohana Bowen MD Radiation Oncologist Radiation Oncology 11/25/18 documented as of this encounter
--- OUTSIDE RECORDS SUMMARY | 2024-06-25 22:18 | XMS_ITS | Encounter Summary ---
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) Procedures [place] OCTREOTIDE INJECTION, DEPOT Octreotide 28 Day Cycles - Carcinoid Eren Cr MD [address] [place] [address] Phone: tel: fax: [address] [address] Phone: tel: fax: Referral ID Status Reason Start Date Expiration Date V isits Requested Visits Authorized [id number] Authorized 11/28/2017 02/05/2025 1 150 Encounter Details Date Type Department Care Team (Late st Contact Info) Description 05/17/2022 1:15 PM CHANNEL LIP STIFFENER INSOLES Infusion [facility] Oncology [address] [place] [address] Neuroendocrine carcinoma (CMS/HCC) (HCC); Malignant neoplasm metastatic [...] file Legal Sex Female 2:41 PM CHANNEL LIP STIFFENER INSOLES Gender Identity Not on file Sexual Orientation [...] Ordered Date ONCBCN INJECTION APPOINTMENT REQUEST 1 05/08 documented in this encounter Care Teams Pizza Driver Relationship Specialty Start Date End Date Julio César Briseno MD PCP - General 10/01/16 Eren Cr MD Referring Physician Medical Oncology 11/25/18 Yohana Bowen MD Radiation Oncologist Radiation Oncology 11/25/18 documented as of this encounter
--- OUTSIDE RECORDS SUMMARY | 2024-06-25 22:18 | XMS_ITS | Encounter Summary ---
Author Organization [facility] Address [address] [place] [address] Care Team Providers Care Automotive Drivability Technician Name Role Phone Julio César Briseno MD Primary Care Provider [phone] Eren Cr MD Unavailable [phone] Yohana Bowen MD Unavailable Reason for Referral * Diagnostic Imaging (Routine) - Closed Specialty Diagnoses / Procedures Referred By Contac t Referred To Contact Radiology Diagnoses Primary malignant neuroendocrine tumor of ileum (HCC) Procedures IR Contrast Injection Evaluation Central Venous Access Device Consult to Interventional Radiology Eren Cr MD [address] [employer] [address] [place] [address] Phone: tel: fax: [facility] [address] [place] [address] Referral ID Status Reason Start Date Expiration Date Visits Re quested Visits Authorized [id number] Closed 06/07/2022 07/07/2023 1 1 MAKER Reason for Visit * Diagnostic Imaging (Routine) - Closed Specialty Diagnoses / Procedures Referred By Contac t Referred To Contact Radiology Diagnoses Primary malignant neuroendocrine tumor of ileum (HCC) Procedures IR Contrast Injection Evaluation Central Venous Access Device Consult to Interventional Radiology Eren Cr MD [address] [place] [address] Phone: tel: fax: [facility] [address] [facility] [place] [address] Referral ID Status Reason Start Date Expiration Date Visits Re quested Visits Authorized [id number] Closed 06/07/2022 07/07/2023 1 1 Encounter Details Date Type Department Care Team (Latest Contact Info) Description 06/12/2022 11:08 AM GLUE MAKER - 06/12/2022 11:59 PM GLUE MAKER Hospital Encounter [facility] Radiology [facility] [address] [place] [address] 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) Discharge Disposition: Discharge to home [...] on file Legal Sex Female 2:41 PM GLUE MAKER Gender Identity Not on file Sexual Orientation Straight 02/19/2021 9: 29 AM CDT Occupation Industry Job Start Date Job End Date retired Not on file Not on file Not on file documented as of this encounter Last Filed Vital Signs Vital Sign Reading Time Taken Comments Blood Pressure 157/71 06/12/2022 12:40 PM GLUE MAKER Pulse 58 06/12/2022 12:40 PM GLUE MAKER Temperature 36.6 ??C (97.9 ??F) 06/12/2022 12:[address] Respiratory Rate 16 06/12/2022 12:40 PM GLUE MAKER Oxygen Saturation 97% 06/12/2022 12:40 PM GLUE MAKER Inhaled Oxygen Concentration - - Weight - - Height - - Body Mass Index - - documented in this encounter Discharge Instructions * Discharge Instructions* Julio Klein MD - 06/12/2022 12:36 PM GLUE MAKER Interventional Radiology Outpatient Discharge Instructions/Note Diagnosis:Port not aspirating Procedure:Port check Limitations: [] No lifting greater than 5 pounds with [] Right [] Left arm for 7 days. [] You received medication that may affect your judgement. Stay with a responsible person today. Do not drive, operate machinery, make any legal or important decisions, or drink alcohol until tomorrow. No smoking unless another adult is present. Other Diet: You may resume your previous diet. Medication: [x] Usual medications; check with your regular doctor for any questions. Do not take any new pain medicine, sleeping pills or sedatives unless approved by your doctor. [] Prescriptions given for: Procedure Site Care: [] teaching sheet given [] Skin glue was used to close your incision. See teaching sheet. [x] Keep site clean and dry. [] You may bathe or shower tomorrow. [x] Change the dressing daily and if it becomes wet or dirty. [] Cover entire area with plastic and tape down edges before showering to keep site clean and dry. [] The suture at your dialysis access site may be removed by the dialysis staff on ___/___/___ (date). Drainage Tube Care: [] Flush tube with [] 5ml Normal Saline [] 10 ml Normal Saline [] Other: [] Flush tube [] once a day [] Other: [] Record drainage output every day. [] Your tube is capped. Uncap the tube after or if severe pain or fever develops. (Please see teaching sheet). [] Call Interventional Radiology if there is leakage around the tube or the tube stops draining. To contact an Interventional Radiologist at [facility] call [phone] Saturday through Saturday from 7:30am-4:30pm. At all other times call [phone] and ask that the Interventional Radiologist be paged. To contact an Interventional Radiologist at [facility] call [phone] Saturday through Saturday from 7:30am-3:30pm. Special instructions: Please call Interventional Radiology for any procedure related questions or problems including: Extreme swelling or bruising at the site. Unusual drainage or bleeding from procedure site. Fever of 101.5 F for more than 24 hours. Severe procedure related pain. Follow up care: [] Return to Interventional Radiology on at Please come to: [] 3rd Floor [facility] [] [facility] [] [facility] [] [facility] Please call [phone] to schedule a follow up appointment. You need to return in MAKER documented in this encounter Medications at Time [...] capsuleIndicatio ns:supplement Take 1 tablet by mouth transfer and line up worker before breakfast 07/04/2016 4 cholecalciferol (VITAMIN D-3) 2,000 unit capsule Take 1 capsule (2,000 Units total) by mouth daily 30 capsule 2 04/25/2019 3 clotrimazole-bet amethasone (LOTRISONE) cream Apply 1 Application topically daily as needed (rash) 4 coenzyme O45-jcodccu E 100-5 mg-unit capsuleIndicatio ns:supplement Take 1 tablet by mouth transfer and line up worker before breakfast 4 diphenoxylate-at ropine (LOMOTIL) 2.5-0.025 [...] and 1 hour after each dose).?? Avoid Rinard's Wort, grapefruit products and [place] oranges while on treatment. placed on hold 09/26/22 for covid 01/29/2022 4 levothyroxine (SYNTHROID) 88 mcg tabletIndication s:Hypothyroidism due to medication TAKE 1 TABLET (88 MCG TOTAL) BY MOUTH HOTEL BREAKFAST ATTENDANT BEFORE BREAKFAST 30 tablet 1 06/11/2022 2 [...] documented in this encounter Nursing Notes * Mikey Adames RN - 06/12/2022 12:24 PM CST Dry sterile dressing applied to port access site. MAKER documented in this encounter Miscellaneous Notes * Post-Procedure Note - Julio Klein MD - 06/12/2022 10:00 AM GLUE MAKER Radiology Brief Post Procedure Note Attending: Lina Warehouse Director: Latoya Sedation/Anesthesia: None Pre-Op/Pre-Procedure Diagnosis: Port not aspirating Post-Op/Post-Procedure Diagnosis: same Procedure Performed: Port check Procedure Findings: No fibrin sheath brisk antegrade flow. I couldn't aspirate. However I think injected hard with 10 cc of NS and was able to aspirate without difficulty. Complications: None Estimated Blood Loss: None Specimens: None Condition: Stable Full report to follow. MAKER * Pre-Procedure Note - Soniya Flores PA - 06/12/2022 10:00 AM GLUE MAKER Radiology Procedure Plan Indication: neuroendocrine cancer with right chest port in place. Difficulty with blood return, tried alteplase x2. Planned Procedure: port contrast injection MAKER documented in this encounter Plan of Treatment Not on file documented as of this encounter Procedures Procedure Name Priority Date/Time Associated Diagnosis Comments CONTRAST INJECTION EVALUATION CENTRAL VENOUS ACCESS DEVICE Schedule Routine, Read Routine (OP Routine) 06/12/2022 12:34 PM GLUE MAKER 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) documented in this encounter Results * IR Contrast Injection Evaluation Central Venous Access Device (06/12/2022 12:34 PM GLUE MAKER) Anatomical Region Laterality Modality Body N/A Radio Fluoroscop y 06/12/2022 2:39 PM GLUE MAKER Impressions 06/12/2022 4:56 PM GLUE MAKER Right chest port in appropriate position without [...] Callie Mills M.D. Narrative 06/12/2022 4:56 PM GLUE MAKER EXAMINATION: ??CENTRAL VENOUS PORT CHECK HISTORY/INDICATION: ??71-year-old [...] was obtained. Prior to beginning the procedure, White Protocol was performed to confirm the patient's [...] was obtained. Prior to beginning the procedure, White Protocol was performed to confirm the patient's [...] Diagnosis Primary malignant neuroendocrine tumor of ileum (HCC) documented in this encounter Administered Medications Inactive Administered Medications - up to 3 most recent administrations Medication Order MAR Action Action Date Dose Rate Site heparin 100 unit/mL injection As needed, Starting on Sat06/12/22 at 1224, Intra-Op, Indications: Maintain Patency of Indwelling Vascular CatheterIndications:Maintain Patency of Indwelling Vascular Catheter Given 06/12/2022 12:24 PM GLUE MAKER 500 Units ioversoL (OPTIRAY 350) injection As needed, Starting on Sat06/12/22 at 1215, Intra-Op Given 06/12/2022 12:15 PM GLUE MAKER 30 mL documented in this encounter Orders Discharge Count Last Ordered Date First Orde red Date DISCHARGE PATIENT 1 06/12/2022 documented in this encounter Care Teams Automotive Drivability Technician Relationship Specialty Start Date End Date Julio César Briseno MD PCP - General 10/01/16 Eren Cr MD Referring Physician Medical Oncology 11/25/18 Yohana Bowen MD Radiation Oncologist Radiation Oncology 11/25/18 documented as of this encounter
--- OUTSIDE RECORDS SUMMARY | 2024-06-25 22:18 | XMS_ITS | Encounter Summary ---
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) Procedures VA OCTREOTIDE INJECTION, DEPOT Octreotide 28 Day Cycles - Carcinoid Eren Cr MD [address] [place] [address] Phone: tel: fax: [address] [address] Phone: tel: fax: Referral ID Status Reason Start Date Expiration Date V isits Requested Visits Authorized [id number] Authorized 11/28/2017 02/05/2025 1 150 Encounter Details Date Type Department Care Team (Latest Contact Info) Description 06/14/2022 9:30 AM INTERMEDIATE MANAGER Clinical Support [facility] Oncology [address] [place] [address] Neuro-endocrine carcinoma (CMS/HCC) (HCC); Neuroendocrine carcinoma (CMS/HCC) (HCC); Malignant neoplasm [...] on file Legal Sex Female 2:41 PM INTERMEDIATE MANAGER Gender Identity Not on file Sexual [...] rst Ordered Date ONCBCN LAB APPOINTMENT 2 06/14/2022 documented in this encounter Care Teams Research Quality Assurance Analyst Relationship Specialty Start Date End Date Julio César Briseno MD PCP - General 10/01/16 Eren Cr MD Referring Physician Medical Oncology 11/25/18 Yohana Bowen MD Radiation Oncologist Radiation Oncology 11/25/18 documented as of this encounter
--- OUTSIDE RECORDS SUMMARY | 2024-06-25 22:18 | XMS_ITS | Encounter Summary ---
Author Organization [facility] Address [address] [place] [address] Phone Care Team Providers Care Clarity Specialists Name Role Phone Julio César Briseno MD Primary Care Provider [phone] Eren Cr MD Unavailable [phone] Yohana Bowen MD Unavailable Reason for Visit * Episode Based Medications (Routine) - Closed Specialty Diagnoses / Procedures Referred By Evelyne bowman Referred To Contact Diagnoses Neuro-endocrine carcinoma (HCC) Procedures study [id number] phase III cabozantinib Eren Cr MD [address] [facility] [address] [place] [address] Phone: tel: fax: [facility] at [facility] and [facility] [address] [facility] Advanced Medicine 7th [place] [address] Phone: tel: Referral ID Status Reason Start Date Expiration Date Visits Re quested Visits Authorized [id number] Closed 06/21/2021 06/26/2024 1 99 Encounter Details Date Type Department Care Team (Latest Contact Info) Description 06/14/2022 11:00 AM HADOOP SOFTWARE ENGINEER Research Med Pick-Up/CTRU Coal Unloader [facility] Oncology [address] [place] [address] Neuro-endocrine carcinoma (CMS/HCC) (HCC) (Primary Dx) Social [...] on file Legal Sex Female 2:41 PM HADOOP SOFTWARE ENGINEER Gender Identity Not on file [...] Date First Ordered Date [facility] cabozantinib/pl acebo (2018-02-/[id number]) tablet 20 mg 1 06/14/2022 Nursing Count Last Ordered Date First Orde red Date ONCBCN CLINICAL PHARMACIST REVIEW 1 022 ONCBCN STUDY COMMUNICATION 2 1 06/14/2022 ONCBCN TREATMENT PARAMETERS 1 1 06/14/2022 Appointment Requests Count Last Ordered Date Fi rst Ordered Date ONCBCN TAKE HOME STUDY DRUG APPT 1 06/14/20 22 documented in this encounter Care Teams Clarity Specialists Relationship Specialty Start Date End Date Julio César Briseno MD PCP - General 10/01/16 Eren Cr MD Referring Physician Medical Oncology 11/25/18 Yohana Bowen MD Radiation Oncologist Radiation Oncology 11/25/18 documented as of this encounter
--- OUTSIDE RECORDS SUMMARY | 2024-06-25 22:18 | XMS_ITS | Encounter Summary ---
Author Organization [facility] Address [address] [place] [address] Phone Care Team Providers Care C Web Developer Name Role Phone Julio César Briseno MD Primary Care Provider [phone] Eren Cr MD Unavailable [phone] Yohana Bowen MD Unavailable Reason for Visit * Episode Based Medications (Routine) - Closed Specialty Diagnoses / Procedures Referred By Evelyne bowman Referred To Contact Diagnoses Neuro-endocrine carcinoma (HCC) Procedures study [id number] phase III cabozantinib Eren Cr MD [address] [facility] [address] [place] [address] Phone: tel: fax: [facility] at [facility] and [facility] [address] [facility] Advanced Medicine 7th [place] [address] Phone: tel: Referral ID Status Reason Start Date Expiration Date Visits Re quested Visits Authorized [id number] Closed 06/21/2021 06/26/2024 1 99 Encounter Details Date Type Department Care Team (Latest Contact Info) Description 04/19/2022 1:30 PM CDT Research Med Pick-Up/CTRU Tool Design Checker [facility] Oncology [address] [place] [address], [place] [address] Neuro-endocrine carcinoma (CMS/HCC) (HCC) (Primary Dx) Social [...] on file Legal Sex Female 2:41 PM 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 SERVICES WORKER Gender Identity Not on file Sexual [...] Date First Ordered Date [facility] cabozantinib/pl acebo (2018-02-122/[id number]) tablet 20 mg 1 04/19/2022 Nursing Count Last Ordered Date First Orde red Date ONCBCN PROVIDER COMMUNICATION 10 1 04/19/20 ONCBCN STUDY COMMUNICATION 2 1 04/19/2022 ONCBCN TREATMENT PARAMETERS 1 1 04/19/2022 Appointment Requests Count Last Ordered Date Fi rst Ordered Date ONCBCN TAKE HOME STUDY DRUG APPT 1 04/19/20 22 documented in this encounter Care Teams C Web Developer Relationship Specialty Start Date End Date Julio César Briseno MD PCP - General 10/01/16 Eren Cr MD Referring Physician Medical Oncology 11/25/18 Yohana Bowen MD Radiation Oncologist Radiation Oncology 11/25/18 documented as of this encounter
--- OUTSIDE RECORDS SUMMARY | 2024-06-25 22:18 | XMS_ITS | Encounter Summary ---
Author Organization [facility] Address [address] [place] [address] Phone Care Team Providers Care Behavioral Health Care Manager Name Role Phone Julio César Briseno MD Primary Care Provider Eren Cr MD Unavailable [phone] Yohana Bowen MD Unavailable Encounter Details Date Type Department Care Team (Late st Contact Info) Description 06/07/2022 3:00 PM CHEMICAL INSPECTOR Infusion [facility] Oncology [address] [facility] Advanced Medicine 7th [place] [address] 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) [...] file Legal Sex Female 2:41 PM CHEMICAL INSPECTOR Gender Identity Not on file Sexual Orientation Straight 02/19/2021 9: 29 AM CDT Occupation Industry Job Start Date Job End Date retired Not on file Not on file Not on file documented as of this encounter Last Filed Vital Signs Vital Sign Reading Time Taken Comments Blood Pressure 155/82 06/07/2022 3:11 PM CHEMICAL INSPECTOR Pulse 77 06/07/2022 3:11 PM CHEMICAL INSPECTOR Temperature 36.8 ??C (98.2 ??F) 06/07/2022 3:11 PM CS T Respiratory Rate 20 06/07/2022 3:11 PM CHEMICAL INSPECTOR Oxygen Saturation 98% 06/07/2022 3:11 PM CHEMICAL INSPECTOR Inhaled Oxygen Concentration - - Weight 75.8 kg (167 lb) 06/07/2022 3:11 PM CHEMICAL INSPECTOR Height - - Body Mass Index 29.58 04/09/2022 7:02 PM CDT documented in this encounter Nursing Notes * Magaly Lucas, [place] - 06/07/2022 3:00 PM CST Oncology Nursing Note [facility] La Chung is a 71 y.o. female who presents for IVF'S Pre-treatment Nursing Assessment Nursing Assessment Appetite: Fair Diarrhea: No Constipation: No Existing Patients: Any falls since your last visit?: No Fatigue: Occassional Mouth Sores: No Nausea/Vomiting: No Neurological symptoms: No LOC: Alert Pain: No Pt states has potential to be ?: No Shortness of Breath?: No Additional Notes: Patients port has no blood return. Peripheral IV started. Alteplase placed to port and team notified. BP: 155/82 Temp: 36.8 ??C (98.2 ??F) Temp src: Transdermal Pulse: 77 Resp: 20 SpO2: 98 % Weight: 75.8 kg (167 lb) Pain Score: 0 - No pain Treatment Patient: met treatment parameters Pre blood return: Brisk from IV aL Chung tolerated treatment well. Patient was frequently observed and monitored throughout the administration of their treatment. Additional Notes: IV worked well without difficulty. Alteplase did not work after and hour and no blood return noted. Alteplase left in place and pts team notified. Team to order a port verification.Also, team gave ok for IVF's over 1.5hrs. Post blood return: Brisk IV IV access post infusion: NS Patient Education Treatment Education: Information/teaching given to patient including process and procedure related to today's visit Response: Verbalizes understanding Discharge Plan Discharge instructions given to patient. Future appointments given and reviewed with treatment plan. Discharge Mode: Ambulatory Accompanied by: Self/ Family Discharged To: Home ICAL INSPECTOR documented in this encounter Plan of [...] needed, other, occluded catheter, Starting on Lydia 06/07/22 at 1600, Dose = 2 mg per lumen. May repeat if patency not achieved after 2 hours. Call provider if the lumen is still occluded after 2 unsuccessful instillation attempts . Reconstitute 2 mg vial with 2.2 mL SWFI. Resulting solution is ~1 mg/mL. DO NOT SHAKE., Indications: Occluded Arteriovenous CannulaIndications:Occluded Arteriovenous Cannula Given 06/07/2022 4:03 PM CHEMICAL INSPECTOR 2 mg sodium chloride 0.9% bolus 1,000 mL 1,000 mL, intravenous, at 500 mL/hr, Administer over 2 Hours, Once, On Lydia 06/07/22 at 1530, For 1 doseIndications:Dehydration,N euroendocrine carcinoma (HCC) New Bag 06/07/2022 1:32 PM CHEMICAL INSPECTOR 1,000 mL 500 mL/hr documented in this encounter Orders Appointment Requests Count Last Ordered Date Fi rst Ordered Date ONCBCN INFUSION APPT REQUEST 1 06/07/2022 documented in this encounter Care Teams Behavioral Health Care Manager Relationship Specialty Start Date End Date Julio César Briseno MD PCP - General 10/01/16 Eren Cr MD Referring Physician Medical Oncology 11/25/18 Yohana Bowen MD Radiation Oncologist Radiation Oncology 11/25/18 documented as of this encounter
--- OUTSIDE RECORDS SUMMARY | 2024-06-25 22:18 | XMS_ITS | Encounter Summary ---
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) Procedures [place] DENOSUMAB INJECTION DENOSUMAB (XGEVA) Eren Cr MD [address] [place] [address] Phone: tel: fax: [facility] [address] [facility] Advanced Medicine 7th [place] [address] Phone: tel: Referral ID Status Reason Start Date Expiration Date V isits Requested Visits Authorized [id number] Authorized 03/02/2019 10/06/2024 1 60 Encounter Details Date Type Department Care Team (Late st Contact Info) Description 04/19/2022 11:15 AM CDT Infusion [facility] Oncology [address] [place] [address] 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) (Primary Dx); Neuroendocrine carcinoma (CMS/HCC) (HCC); Bone metastasis (CMS/HCC) (HCC); Neuro-endocrine [...] on file 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 female who presents for 1L NS and zofran, octreotide, and xgeva. Pre-treatment Nursing Assessment Nursing Assessment Appetite: Fair Diarrhea: Yes (colostomy) Constipation: No Existing Patients: Any falls since your last visit?: No Fatigue: Constant Mouth Sores: No Nausea/Vomiting: No Neurological symptoms: No Pain: No Peripheral Neuropathy: No Pt states has potential to be ?: No Shortness of Breath?: No Pt is on oxygen?: No Skin Condition/Temp: Warm, Dry Swelling: No BP: 137/68 Temp: 36.3 ??C (97.4 ??F) Temp src: Temporal Pulse: 60 Resp: 18 SpO2: 96 % Weight: 76.2 kg (168 lb) Treatment Patient: met treatment parameters Pre blood return: Brisk La Chung tolerated treatment well. Patient was frequently observed and monitored throughout the administration of their treatment. Post blood return: Brisk IV access post infusion: flushed with NS and heparin Patient Education Treatment Education: Information/teaching given to [...] mg 120 mg, subcutaneous, Once, On Lydia 04/19/22 at 1300, For 1 dose, Calcium level should be greater than 8 mg/dl Administer injection in upper arm, abdomen or upper thigh Refrigerate. Allow to stand 15 to 30 mins prior to useIndications:Bone metastasis,Neuro-endocri ne carcinoma (HCC) Given 04/19/2022 1:02 PM CDT 120 mg Right Lower Abdomen octreotide LAR (SandoSTATIN LAR) extended release intramuscular injection 30 mg 30 mg, intramuscular, Once, On Lydia 04/19/22 at 1315, For 1 dose, Refrigerate. For IM intragluteal administration only- alternate gluteal sites. Shake.Indications:Malign ant neoplasm metastatic to liver (HCC),Neuroendocrine carcinoma (HCC) Given 04/19/2022 2:18 PM CDT 30 mg Right Dorsogluteal/But tock ondansetron (ZOFRAN) injection 8 mg 8 mg, intravenous, Administer over 2 Minutes, Once, On Lydia 04/19/22 at 1315, For 1 doseIndications:Dehydrat ion,Neuroendocrine carcinoma (HCC) Given 04/19/2022 2:20 PM CDT 8 mg sodium chloride 0.9% bolus 1,000 mL 1,000 mL, intravenous, at 500 mL/hr, Administer over 2 Hours, Once, On Lydia 04/19/22 at 1315, For 1 doseIndications:Dehydrat ion,Neuroendocrine carcinoma (HCC) New Bag 04/19/2022 12:35 PM CDT 1,000 mL 500 mL/hr documented in this encounter Orders Medications Ordered That Brett ht Not Have Been Administered Count Last Ordered Date First Ordered Date sodium chloride 0.9% bolus 1,000 mL 1 04/19 Nursing Count Last Ordered Date First Orde red Date ONCBCN NURSING COMMUNICATION [id number] 1 04/19 Appointment Requests Count Last Ordered Date Fi rst Ordered Date ONCBCN INFUSION APPT REQUEST 1 04/19/2022 documented in this encounter Care Teams Leadlighter Relationship Specialty Start Date End Date Julio César Briseno MD PCP - General 10/01/16 Eren Cr MD Referring Physician Medical Oncology 11/25/18 Yohana Bowen MD Radiation Oncologist Radiation Oncology 11/25/18 documented as of this encounter
--- OUTSIDE RECORDS SUMMARY | 2024-06-25 22:18 | XMS_ITS | Encounter Summary ---
Author Organization 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) Procedures [place] DENOSUMAB INJECTION DENOSUMAB (XGEVA) Eren Cr MD [address] [facility] [address] [place] [address] Phone: tel: fax: [facility] and [facility] Advanced Medicine 7th [place] [address] Phone: tel: Referral ID Status Reason Start Date Expiration Date V isits Requested Visits Authorized [id number] Authorized 03/02/2019 10/06/2024 1 60 Encounter Details Date Type Department Care Team (Late st Contact Info) Description 05/28/2022 3:30 PM HAT TRIMMER Infusion [facility] Oncology [address] 7th [place] [address] 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) [...] on file 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 female who presents for treatment of 1L of fluids over 2 Hours Pre-treatment Nursing Assessment Nursing Assessment Appetite: Fair Diarrhea: No Constipation: No Last BM Date: 05/28/22 Existing Patients: Any falls since your last visit?: No New Patients: Any falls since your last visit?: N/A Fatigue: Occassional Mouth Sores: No Nausea/Vomiting: No Neurological symptoms: No Pain: No Peripheral Neuropathy: No Pt states has potential to be ?: N/A Shortness of Breath?: Yes Lungs auscultated PRN: No Pt is on oxygen?: No Respiratory Effort Characteristics: Dyspnea exertion Skin Condition/Temp: Warm Oral Mucosa Grade: Normal (0) Abdomen: Soft Additional Notes: No data recorded Pain Score: 0 - No pain Treatment Patient: met treatment parameters Pre blood return: Brisk La Chung tolerated treatment well. Patient was frequently observed and monitored throughout the administration of their treatment. Additional Notes: Post blood return: Brisk IV access post infusion: NS Patient Education Treatment Education: Information/teaching given to patient including adverse reaction, symptom management, process and procedure related to today's visit, and when to notify MD Response: Verbalizes understanding Discharge Plan Discharge instructions given to patient. Future appointments given and reviewed with treatment plan. Discharge Mode: Ambulatory Accompanied by: Family Discharged To: Home TRIMMER documented in this encounter Plan of Treatment [...] As needed, other, occluded catheter, Starting on Sat05/28/22 at 1631, Dose = 2 mg per lumen. May repeat if patency not achieved after 2 hours. Call provider if the lumen is still occluded after 2 unsuccessful instillation attempts . Reconstitute 2 mg vial with 2.2 mL SWFI. Resulting solution is ~1 mg/mL. DO NOT SHAKE., Indications: Occluded Arteriovenous CannulaIndications:Occluded Arteriovenous Cannula Given 05/28/2022 4:30 PM HAT TRIMMER 2 mg sodium chloride 0.9% bolus 1,000 mL 1,000 mL, intravenous, at 500 mL/hr, Administer over 2 Hours, Once, On Sat05/28/22 at 1615, For 1 doseIndications:Dehydration,N euroendocrine carcinoma (HCC) New Bag 05/28/2022 4:05 PM HAT TRIMMER 1,000 mL 500 mL/hr documented in this encounter Orders Medications Ordered That Brett ht Not Have Been Administered Count Last Ordered Date First Ordered Date alteplase (CATHFLO ACTIVASE) injection 1 mg 1 05/28/2022 Appointment Requests Count Last Ordered Date Fi rst Ordered Date ONCBCN INFUSION APPT REQUEST 1 05/28/2022 documented in this encounter Care Teams Records Management Assistant Relationship Specialty Start Date End Date Julio César Briseno MD PCP - General 10/01/16 Eren Cr MD Referring Physician Medical Oncology 11/25/18 Yohana Bowen MD Radiation Oncologist Radiation Oncology 11/25/18 documented as of this encounter
--- OUTSIDE RECORDS SUMMARY | 2024-06-25 22:18 | XMS_ITS | Encounter Summary ---
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) Bone metastasis Procedures CT chest abdomen pelvis with contrast Eren Cr MD [address] [place] [address] Phone: tel: fax: [address] [address] Referral ID Status Reason Start Date Expiration Date Visits Re quested Visits Authorized [id number] Closed 06/13/2022 07/13/2023 1 1 ITE WORKER Reason for Visit * MRI/CAT/PET Scan (Routine) - Closed Specialty Diagnoses / Procedures Referred By Contac t Referred To Contact Radiology Diagnoses 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) Bone metastasis Procedures CT chest abdomen pelvis with contrast Eren Cr MD [address] [facility] [address] [place] [address] Phone: tel: fax: [facility] [address] [facility] [address] Referral ID Status Reason Start Date Expiration Date Visits Re quested Visits Authorized [id number] Closed 06/13/2022 07/13/2023 1 1 Encounter Details Date Type Department Care Team (Latest Contact Info) Description 06/28/2022 9:58 AM LEADITE WORKER - 06/28/2022 10:44 AM LEADITE WORKER Hospital Encounter [facility] [address] [place] [address] 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); Malignant neoplasm metastatic to liver [...] on file Legal Sex Female 2:41 PM LEADITE WORKER Gender Identity Not on file Sexual [...] capsuleIndicatio ns:supplement Take 1 tablet by mouth early learning teacher before breakfast 07/04/2016 4 cholecalciferol (VITAMIN D-3) 2,000 unit capsule Take 1 capsule (2,000 Units total) by mouth daily 30 capsule 2 04/25/2019 3 clotrimazole-bet amethasone (LOTRISONE) cream Apply 1 Application topically daily as needed (rash) 4 coenzyme B91-xacptnk E 100-5 mg-unit capsuleIndicatio ns:supplement Take 1 tablet by mouth early learning teacher before breakfast 4 diphenoxylate-at ropine (LOMOTIL) 2.5-0.025 [...] and 1 hour after each dose).?? Avoid [place]'s Wort, grapefruit products and [place] oranges while on treatment. 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 ??No metastatic disease in the chest. 2. ??Stable hepatic and peritoneal metastases. ??No new abdominal metastases. Electronically signed by: Jasbir Delgadillo M.D. Narrative 06/28/2022 11:36 AM LEADITE WORKER EXAMINATION: ??CT chest abdomen pelvis with contrast [...] by: Jasbir Delgadillo M.D. Eren Cr MD IM CT PROCEDURES [...] Once in imaging, contrast, Starting on Lydia 06/28/22 at 1038, For 1 dose Contrast Given 06/28/2022 10:40 AM LEADITE WORKER 94 mL documented in this encounter Orders Medications Ordered That Brett ht Not Have Been Administered Count Last Ordered Date First Ordered Date ioversoL (OPTIRAY 350) syringe 100 mL 1 documented in this encounter Care Teams Temper Mill Operator Relationship Specialty Start Date End Date Julio César Briseno MD PCP - General 10/01/16 Eren Cr MD Referring Physician Medical Oncology 11/25/18 Yohana Bowen MD Radiation Oncologist Radiation Oncology 11/25/18 documented as of this encounter
--- OUTSIDE RECORDS SUMMARY | 2024-06-25 22:18 | XMS_ITS | Encounter Summary ---
Author Organization [facility] Address [address] [place] [address] Phone Care Team Providers Care Lock And Dam Operator Name Role Phone Julio César Briseno MD Primary Care Provider Eren Cr MD Unavailable [phone] Yohana Bowen MD Unavailable Encounter Details Date Type Department Care Team (Late st Contact Info) Description 04/25/2022 Orders Only [facility] Oncology [address] [place] [address] Eren Cr MD [address] [place] [address] 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) (Primary Dx); 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); Dehydration Social History Tobacco Use [...] on file Legal Sex Female 2:41 PM ENTRY 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
--- OUTSIDE RECORDS SUMMARY | 2024-06-25 22:18 | XMS_ITS | Encounter Summary ---
Author Organization [facility] Address [address] [place] [address] Phone Care Team Providers Care Diagnostic Radiologic Technologist Name Role Phone Julio César Briseno MD Primary Care Provider Eren Cr MD Unavailable [phone] Yohana Bowen MD Unavailable Encounter Details Date Type Department Care Team (Late st Contact Info) Description 06/28/2022 Telephone [facility] Oncology [address] [place] [address] Eren Cr MD [address] [place], [place] [id number] Social History Tobacco Use Types Packs/Day Years [...] file Legal Sex Female 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 CAL EQUIPMENT SALES documented in this encounter Plan of Treatment Not on file documented as of this encounter Visit Diagnoses Not on filedocumented in this encounter Care Teams Diagnostic Radiologic Technologist Relationship Specialty Start Date End Date Julio César Briseno MD PCP - General 10/01/16 Eren Cr MD Referring Physician Medical Oncology 11/25/18 Yohana Bowen MD Radiation Oncologist Radiation Oncology 11/25/18 documented as of this encounter
--- OUTSIDE RECORDS SUMMARY | 2024-06-25 22:18 | XMS_ITS | Encounter Summary ---
Author Organization [facility] Address [address] [place] [address] Phone Care Team Providers Care Bioinformatics Associate Name Role Phone Julio César Briseno MD Primary Care Provider Eren Cr MD Unavailable [phone] Yohana Bowen MD Unavailable Encounter Details Date Type Department Care Team (Late st Contact Info) Description 04/19/2022 Orders Only [facility] Oncology [address] [place] [address] Eren Cr MD [address] [place], [place] [address] Social History Tobacco Use Types Packs/Day Years [...] on file Legal Sex Female 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 Gender Identity Not on file Sexual Orientation Straight 02/19/2021 9: 29 AM CDT Occupation Industry Job Start Date Job End Date retired Not on file Not on file Not on file documented as of this encounter Plan of Treatment Not on file documented as of this encounter Visit Diagnoses Not on filedocumented in this encounter Care Teams Bioinformatics Associate Relationship Specialty Start Date End Date Julio César Briseno MD PCP - General 10/01/16 Eren Cr MD Referring Physician Medical Oncology 11/25/18 Yohana Bowen MD Radiation Oncologist Radiation Oncology 11/25/18 documented as of this encounter
--- OUTSIDE RECORDS SUMMARY | 2024-06-25 22:18 | XMS_ITS | Encounter Summary ---
Author Organization [facility] Address [address] [place] [address] Phone Care Team Providers Care Hris Administrator Name Role Phone Julio César Briseno MD Primary Care Provider [phone] Eren Lund MD Unavailable [phone] Yohana Bowen MD Unavailable Reason for Visit * Reason Comments Skin Exam + a couple spots Encounter Details Date Type Department Care Team (Late st Contact Info) Description 05/18/2022 12:45 PM 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 PROGRAMMER ANALYST Office Visit [facility] [address] [facility] [address] [place] [address] Po Newberry MD PhD [address] [place] [id number] Family history of melanoma (Primary Dx); Bagley angioma; Dermal nevus; Lentigines; Purpura of skin due to vascular fragility (CMS/HCC) (HCC); Lichenoid keratosis; Nevus, non-neoplastic; Inflamed seborrheic keratosis; Xerosis cutis; Papule of skin Social History Tobacco Use Types Packs/Day Years [...] Notes * Po Newberry MD PhD - 05/18/2022 12:45 PM CST La Chung [id number] 05/18/22 CHIEF COMPLAINT: inflamed seborrheic keratosis HISTORY OF PRESENT ILLNESS La Chung is a 71 y.o. female returning pt, here for FBSE. Pt is accompanied by daughter. Pt has hx of cancer undergoing chemotherapy. Pt states, - Pt has spots marked w pen that are very dry. Pt endorses that they are very itchy. Pt does not moisturize the areas. - Pt is likely somewhat dry due to chemotherapy as well. Pt takes a nightly pill and gets monthly injections. Port was accessed yesterday. - Pt also picks at spots on arms that are itchy. - Pt gets irritated when uses bandaids, and one was put on at doctor's visit. - Pt endorses having a colostomy bag. - Pt is concerned for spot on nose, pt endorses picking at the spot. - Pt is not concerned for anything in the breast or private areas. No other associated symptoms, exacerbating or alleviating [...] well. Past Medical History: Diagnosis Date Arthritis Cancer (CMS/HCC) (HCC) Family history of malignant hyperthermia grandson - questionable Generalized headaches GERD (gastroesophageal reflux disease) Hypercholesteremia Hypertension Motion sickness Personal history of other diseases of the digestive system History of hemorrhoids - (Added by TW Conv) PONV (postoperative nausea and vomiting) Status post chemotherapy 09/2019 immunotherapy Status post radiation therapy 09/2019 REVIEW OF SYSTEMS Denies pruritus, easy bruising. Also denies fever, chills, night sweats, weight loss, weakness, lymphadenopathy. Denies any reason for immunocompromization - h/o HIV, radiation therapy, bone-marrow transplant. PHYSICAL EXAM Gen and Cardio: Well-developed and well-nourished in no acute distress. Alert oriented and interacts appropriately. Normal conjunctiva. Normal skin sensation. No lower extremity edema. Derm: A full cutaneous exam was performed with close inspection and palpation where indicated and as allowed by the patient of the hair, scalp, face, lips, neck, chest, abdomen, buttock, back, right upper, left upper, right lower, left lower extremities, hands, feet, nails and digits. All skin examined was normal with exception of these notable exam findings: - aneudy red papules on trunk - flesh colored papule on back - lund macules on trunk and extremities - purplish macules and patches on arms - brown/red thin plaques and papules w prominence of skin folds of trunk - Brown macule on abdomen - brown stuck on keratotic papule w erythematous base on L arm - dry scale across trunk and extremities - papule w dried crust on nose ASSESSMENT AND PLAN Bagley angiomas: trunk Dermal nevus: back Lentigines: trunk and extremities Actinic purpura: arms Lichenoid Keratoses: trunk Nevus: abdomen - patient educated on course and prognosis. Recommend cautious observation for change Inflamed Seborrheic Keratosis: L arm - Discussed with patient the nature of the condition and possible treatment options. - Proc: A total of 1 lesions were treated with liquid nitrogen x 5-10 secs x 2 cycles - Discussed risk/benefit including risk of pain, scar/hypopigmentation, incomplete removal and recurrence and verbal informed consent obtained. Tolerated procedure well without complications. Blistercare discussed with patient. Xerosis cutis: trunk and extremities - Aggressive moisturization to of was recommended including daily general body moisturizing routineespecially in the winter. Petrolatum Jelly recommended Crusted papule:nose DDx: actinic keratosis vs resolving fever blister - Discussed with patient the nature of the condition and possible treatment options. - Proc: A total of 1 lesions were treated with liquid nitrogen x 5-10 secs x 2 cycles - Discussed risk/benefit including risk of pain, scar/hypopigmentation, incomplete removal and recurrence and verbal informed consent obtained. Tolerated procedure well without complications. Blistercare discussed with patient. Family History of Melanoma - No concerning [...] SCRIBE ATTESTATION By signing my name, I, JERARDO Mejía, scribe, attest that this documentation has been prepared under the direction and in the presence of Dr. Newberry 05/18/22 12:40 PM ATTENDING ATTESTATION I personally performed the services described in this documentation, reviewed and edited the documentation which was dictated to the scribe in my presence, and it accurately records my words and actions. Electronically Signed: Po Newberry MD, PhD* ESSIONAL PROGRAMMER ANALYST documented in this encounter Plan of Treatment Not on file documented as of this encounter Visit Diagnoses Diagnosis Family history of melanoma- Primary Family history of other specified malignant neoplasm Bagley angioma Dermal nevus Benign neoplasm of skin, site unspecified Lentigines Purpura of skin due to vascular fragility (CMS/HCC) (HCC) Lichenoid keratosis Nevus, non-neoplastic Inflamed seborrheic keratosis Xerosis cutis Other specified disease of sebaceous glands Papule of skin documented in this encounter Care Teams Hris Administrator Relationship Specialty Start Date End Date Julio César Briseno MD PCP - General 10/01/16 Eren Lund MD Referring Physician Medical Oncology 11/25/18 Yohana Bowen MD Radiation Oncologist Radiation Oncology 11/25/18 documented as of this encounter
--- OUTSIDE RECORDS SUMMARY | 2024-06-25 22:19 | XMS_ITS | Encounter Summary ---
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 Eren Cr MD [address] [facility] [address] [place] [address] Phone: tel: fax: [facility] [address] [facility] Advanced Medicine 7th [place] [address] Phone: tel: Referral ID Status Reason Start Date Expiration Date Visits Re quested Visits Authorized [id number] Closed 06/21/2021 06/26/2024 1 99 Encounter Details Date Type Department Care Team (Latest Contact Info) Description 03/22/2022 11:15 AM CDT Research Med Pick-Up/CTRU Lead [facility] Oncology [address] [place] [address], [place] [address] Neuro-endocrine carcinoma (CMS/HCC) (HCC) (Primary Dx) Social [...] on file 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 Gender Identity Not on file Sexual [...] Date First Ordered Date [id number] cabozantinib/pl acebo (08-122/[id number]) tablet 20 mg 1 03/22/2022 Nursing Count Last Ordered Date First Orde red Date ONCBCN STUDY COMMUNICATION 2 1 03/22/2022 ONCBCN TREATMENT PARAMETERS 1 1 03/22/2022 RESEARCH STUDY CLARIFICATION ORDER 1 2021 Appointment Requests Count Last Ordered Date Fi rst Ordered Date ONCBCN TAKE HOME STUDY DRUG APPT 1 03/22/20 22 documented in this encounter Care Teams Senior Insight Manager International Relationship Specialty Start Date End Date Julio César Briseno MD PCP - General 10/01/16 Eren Cr MD Referring Physician Medical Oncology 11/25/18 Yohana Bowen MD Radiation Oncologist Radiation Oncology 11/25/18 documented as of this encounter
--- OUTSIDE RECORDS SUMMARY | 2024-06-25 22:19 | XMS_ITS | Encounter Summary ---
Author Organization 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) Procedures PA OCTREOTIDE INJECTION, DEPOT Octreotide 28 Day Cycles - Carcinoid Eren Cr MD [address] [facility] [address] [place] [address] Phone: tel: fax: [facility] [address] [address] Phone: tel: fax: Referral ID Status Reason Start Date Expiration Date V isits Requested Visits Authorized [id number] Authorized 11/28/2017 02/05/2025 1 150 Encounter Details Date Type Department Care Team (Late st Contact Info) Description 03/22/2022 11:00 AM CDT Infusion [facility] Oncology [address] [place] [address], [place] [address] Neuroendocrine carcinoma (CMS/HCC) (HCC); Malignant neoplasm metastatic [...] file 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
--- OUTSIDE RECORDS SUMMARY | 2024-06-25 22:19 | XMS_ITS | Encounter Summary ---
Author Organization [facility] Address [address] [place] [address] Phone Care Team Providers Care Bean Picker Name Role Phone Julio César Briseno MD Primary Care Provider [phone] Eren Cr MD Unavailable [phone] Yohana Bowen MD Unavailable Reason for Visit * Episode Based Medications (Routine) - Closed Specialty Diagnoses / Procedures Referred By Evelyne bowman Referred To Contact Diagnoses Neuro-endocrine carcinoma (HCC) Procedures study [id number] phase III cabozantinib Eren Cr MD [address] [facility] [address] [place] [address] Phone: tel: fax: [facility] [address] [facility] Advanced Medicine 7th [place] [address] Phone: tel: Referral ID Status Reason Start Date Expiration Date Visits Re quested Visits Authorized [id number] Closed 06/21/2021 06/26/2024 1 99 Encounter Details Date Type Department Care Team (Late st Contact Info) Description 04/19/2022 10:30 AM CDT Office Visit [facility] Oncology [address] [place] [address] Eren Cr MD [address] [facility] [address] [place] [address] 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) (Primary Dx); 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); Bone metastasis (CMS/HCC) (HCC); Neuro-endocrine carcinoma (CMS/HCC) (HCC); Neuroendocrine carcinoma (CMS/HCC) (HCC); Hypothyroidism due to medication; Abnormal urine color Social History Tobacco Use Types Packs/Day Years [...] on file 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 Gender Identity Not on file Sexual Orientation Straight 02/19/2021 9: 29 AM CDT Occupation Industry Job Start Date Job End Date retired Not on file Not on file Not on file documented as of this encounter Last Filed Vital Signs Vital Sign Reading Time Taken Comments Blood Pressure 137/68 04/19/2022 11:22 AM CDT Pulse 60 04/19/2022 11:22 AM CDT Temperature 36.3 ??C (97.4 ??F) 04/19/2022 11:22 AM C DT Respiratory Rate 18 04/19/2022 11:22 AM CDT Oxygen Saturation 96% 04/19/2022 11:22 AM CDT Inhaled Oxygen Concentration - - Weight 76.2 kg (168 lb) 04/19/2022 11:22 AM CDT Height - - Body Mass Index 29.76 04/09/2022 7:02 PM CDT documented in this encounter Ordered Prescriptions Prescription Sig Dispense Quantity Refills Last Filled Start Date End Date levothyroxine (SYNTHROID) 88 mcg tabletIndications: Hypothyroidism due to medication Take 1 tablet (88 mcg total) by mouth early childhood education worker before breakfast 30 tablet 1 04/19/2022 2 documented in this encounter Progress Notes * Angel Morales, PAPER CUTTER OPERATOR - 04/19/2022 10:30 AM CDT Images from the original note were not included. MEDICAL ONCOLOGY OUTPATIENT ROV NOTE DATE OF VISIT: 04/19/2022 DIAGNOSIS: well differentiated neuroendocrine tumor of ileum [...] 20 mg cabozantinib daily.Octreotide injection due today. She was admitted to [facility] hospital 04/09-04/10 for proctitis. She was discharged on cipro/flagyl but was only able to complete flagyl due to nausea/vomiting from cipro. She has had no recurrent rectal pain. Today she reports feeling well but has noticed darker urine which started around the time she started taking flagyl. She denies dysuria, foul smelling urine, flank or pelvic pain. She has noticed mild dizziness symptoms from time to time this week. She denies any other symptoms or concerns. Her weight and appetite is stable. She has normal ostomy output. She denies abdominal pain, nausea,vomiting, diarrhea, constipation, fevers, or chills. REVIEW OF SYSTEMS: A complete review of systems was performed and positive and pertinent negative responses are documented in the history of present illness All other systems were negative. PHYSICAL EXAM: ECOG PS: 1 VITALS: BP 137/68 (BP Location: Left arm) Pulse 60 Temp 36.3 ??C (97.4 ??F) (Temporal) Resp 18 Wt 76.2 kg (168 lb) SpO2 96% BMI 29.76 kg/m?? GEN: Calm, conversant, well-appearing female in [...] SKIN: No rashes over exposed skin. . Minimal erythema. 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 Labs - Hematology Latest Ref Range 803/22/22 04/09/22 04/19/22 WBC 3.8 - 9.9 K/cumm 3.9 3.0 (A) 5.1 4.6 Total Hb, POC 11.9 - 15.5 g/dL 11.0 (A) 11.4 (A) 12.2 11.7 (A) Hct 35.6 - 45.5 % 32.7 (A) 35.0 (A) 35.7 35.5 (A) Plt 150 - 400 K/cumm 98 (A) 97 (A) 113 (A) 125 (A) Neutrophil abs 1.7 - 6.5 K/cumm 2.7 2.1 3.9 3.2 Lymphocytes, abs 0.8 - 3.3 K/cumm 0.5 (A) 0.4 (A) 0.5 (A) 0.8 (A) Abnormal value Comments are available for some flowsheets but are not being displayed. Chem/LFT Lab History Some values may be hidden. Unless noted otherwise, only the newest values recorded on each date aredisplayed. Labs-Chem/LFT Latest Ref Range 02/22/22 03/22/22 04/09/22 04/19/22 Sodium 135 - 145 mmol/L 143 139 137 140 Creatinine 0.60 - 1.10 mg/dL 1.12 (A) 1.20 (A) 1.13 (A) 1.22 (A) Bilirubin, total 0.1 - 1.2 mg/dL 0.7 0.6 1.4 (A) 0.4 AST 10 - 45 Units/L 33 29 40 28 ALT 7 - 45 Units/L 23 20 25 21 CrCl- Actual Body Weight (Cockcroft-Gault) 54 50.6 45.8 49.4 Some values recorded on this date have been omitted. (A) Abnormal value Comments are available for some flowsheets but are not being displayed. Tumor Marker History Some values may be hidden. Unless noted otherwise, only the newest values recorded on each date aredisplayed. Tumor Markers Latest Ref Range 01/15/22 01/29/22 02/22/22 03/22/22 Chromogranin A <93 ng/mL 1014 (A) 930 (A) 874 (A) 1003 (A) (A) Abnormal value Comments are available [...] mg; due for injection today - CT 02/02/22 showed stable disease and current scans 03/21/2022 again showed stable disease. - I reviewed her labs today and they are adequate to proceed with cycle 9 of CABINET study. Will continue on 20 mg dosing - Scans planned in 1 month - Chromogranin A level 1003 on 03/22/2022 - She consented to the ICAREdata study today. 2. Progressive focal circumferential thickening of the distal sigmoid colon per scan 01/2022 -she is not symptomatic from this and we discussed possible colonoscopy with her and her daughter - this is stable with her scans 04/09/2022. 3. Thrombocytopenia: - Platelet 125K and stable. No signs of bleeding 4. Bone metastases: - On Xgeva. Phos 2.8 today; Ca 10.6 Creatinine 1.22 - Continue monitor Cr, Phos, and Calcium - continue IVF 5. Diarrhea - improved - Continue Lomotil and add Imodium as needed 6. TSH elevated -TSH 04/19/22 increased to 7.34 - Increase levothyroxine to 88 mcg daily - Recheck TSH/Free T4 at next visit. 7. Vitamin D insufficiency/Deficiency: -Vit D 02/22/2022 26 - Vitamin D 50 000 international units weekly 8. Proctitis - Completed flagyl, stopped cipro due to n/v - Symptoms have resolved. 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 Dark Urine - Will obtain urinalysis today. All of her and questions were answered to their satisfaction and they verbalized understanding. Galina mcduffie 05/17/[address] Cr is in agreement with the treatment plan but did not independently examine the patient. Jump to the Problem List Disease Status Documentation for mCODE Neoplastic Disease Neuroendocrine carcinoma (CMS/HCC) (HCC) Cancer Disease Assessment for mCODE Date of diagnosis: 10/03/15 Disease status: stable Reason for disease status: imaging, symptoms, physical exam, lab results Date of cancer disease status assessment: 04/19/22 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) Neuro-endocrine carcinoma (CMS/HCC) (HCC) Bone metastasis (CMS/HCC) (HCC) H/O actinic keratosis Neuroendocrine tumor Cancer [facility]: No change in treatment plan Cosigned by Eren Cr Jr., MD at 04/19/2022 4:24 PM CDT documented in this encounter Plan of Treatment Not on file documented as of this encounter Results * TSH reflex to free T4 (05/17/2022 11:34 AM MACHINE WASHER) TSH 3.02 0.30 - 4.20 mcIUnit/mL [facility] Blood 05/17/2022 11:3 4 AM MACHINE WASHER 05/17/2022 12:37 PM MACHINE WASHER us Eren Cr MD LAB BLOOD ORDERABLES Final Re sult [facility] [place] [address] * (ABNORMAL) Vitamin D 25 hydroxy (05/17/2022 11:34 AM MACHINE WASHER) Vitamin D 25-OH 24(L) 30 - 80 ng/mL [facility] Blood 05/17/2022 11:3 4 AM MACHINE WASHER 05/17/2022 12:37 PM MACHINE WASHER Eren Cr MD LAB BLOOD ORDERABLES Final Re sult Performing Organization Address City/[facility] Co de Phone Number [facility] [place] [address] * (ABNORMAL) Phosphorus (05/17/2022 11:34 AM MACHINE WASHER) Phosphorus, pl 2.0(L) 2.3 - 4.5 mg/dL [facility] Comment:Testing performed by : [facility], [address] [place] [id number] Blood 05/17/2022 11:3 4 AM MACHINE WASHER 05/17/2022 11:36 AM MACHINE WASHER Eren Cr MD LAB BLOOD ORDERABLES Final Re sult Performing Organization Address [facility] Co de Phone Number [facility] Department [place] [address] * (ABNORMAL) Lipid panel (05/17/2022 11:34 AM MACHINE WASHER) Cholesterol 183 30 - 199 mg/dL [facility] Comment: Reviewed Interpretive Data Ages < or [...] on 2018. Triglycerides 242(H) <=149 mg/dL [facility] Comment: Interpretive Data Ages < or = [...] revised on 2018. HDL 59 >=40 mg/dL [facility] Comment: Interpretive Data Ages < or [...] on 2018. LDL, calculated 76 <=129 mg/dL [facility] Comment: Interpretive Data Ages < or = [...] revised on 2018. Non-HDL Cholesterol 124 mg/dL [facility] Comment: Interpretive Data Ages < or = [...] last revised on 2018. Chol/HDL ratio 3 [facility] Blood 05/17/2022 11:3 4 AM MACHINE WASHER 05/17/2022 12:37 PM MACHINE WASHER us Eren Cr MD LAB BLOOD ORDERABLES Final Re sult [facility] [place] [address] * Urinalysis reflex to microscopic and culture Urine, clean voided (04/19/2022 2:48 PM CDT) Color, ur Yellow Yellow [facility] Clarity, ur Clear Clear [facility] Specific gravity, ur 1.018 1.003 - 1.030 [facility] pH, urine 5.5 [facility] Protein, ur ql Negative Negative [facility] Glucose, ur ql Negative Negative [facility] Ketones, ur Negative Negative [facility] Bilirubin, ur Negative Negative [facility] Blood, ur Negative Negative [facility] Urobilinogen, ur <2.0 <2.0 mg/dL [facility] Nitrite, ur Negative Negative [facility] Leukocyte esterase, ur Negative Negative [facility] UA reflex comment Reflex conditions for microscopic UA and culture not met. [facility] Urine, clean voided 04/19/2022 2:48 PM CDT 04/19/2022 7:09 PM CDT Narrative [facility] - 04/19/2022 7:17 PM CDT ?? Urine pH is affected by diet, medications, systemic acid-base disturbances, and renal tubular function. ??pH may affect urinary stone formation. ??For example, urine pH below 6.0 may help reduce the tendency for calcium phosphate stones and pH greater than 6.0 may reduce the tendency for uric acid stone formation. Source: [employer]. 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) Other malignant neoplasm of unspecified site Neuroendocrine carcinoma (HCC) Other malignant neoplasm of unspecified site Hypothyroidism due to medication Abnormal urine color Other urinary problems documented in this encounter Discontinued Medications Medication Sig Discontinue Reason Start Date End Da te ciprofloxacin (CIPRO) 500 mg tablet Take 1 tablet (500 mg total) by mouth 2 (two) times a day for 7 days Therapy completed 04/10/2022 04/19/2022 metroNIDAZOLE (FLAGYL) 500 mg tablet Take 1 tablet (500 mg total) by mouth 3 (three) times a day for 7 days Therapy completed 04/10/2022 04/19/2022 levothyroxine (SYNTHROID) 75 mcg tabletIndications:Hypot hyroidism due to medication TAKE 1 TABLET (75 MCG TOTAL) BY MOUTH FOXPRO DEVELOPER BEFORE BREAKFAST 02/22/2022 04/19/2022 documented as of this encounter Orders Appointment Requests Count Last Ordered Date Fi rst Ordered Date ONCBCN INJECTION APPOINTMENT REQUEST 1 05/08 ONCBCN CLINIC APPOINTMENT REQUEST 1 022 documented in this encounter Care Teams Bean Picker Relationship Specialty Start Date End Date Julio César Briseno MD PCP - General 10/01/16 Eren Cr MD Referring Physician Medical Oncology 11/25/18 Yohana Bowen MD Radiation Oncologist Radiation Oncology 11/25/18 documented as of this encounter
--- OUTSIDE RECORDS SUMMARY | 2024-06-25 22:19 | XMS_ITS | Encounter Summary ---
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) Procedures NA Referral ID Status Reason Start Date Expiration Date Visits Re quested Visits Authorized [id number] 1 1 Encounter Details Date Type Department Care Team (Latest Contact Info) Description 04/09/2022 8:30 PM CDT - 04/10/2022 4:50 PM CDT Hospital Encounter [address] [id number] Michelle Abernathy MD [id number] [facility] [address] [place] [address] Eren Cr MD [id number] [place] [address] Proctitis (Primary Dx); 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); Rectal pain Discharge Disposition: Discharge to home or self [...] on file Legal Sex 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 Gender Identity Not on file Sexual Orientation Straight 02/19/2021 9: 29 AM CDT Occupation Industry Job Start Date Job End Date retired Not on file Not on file Not on file documented as of this encounter Last Filed Vital Signs Vital Sign Reading Time Taken Comments Blood Pressure 109/47 04/10/2022 4:25 PM CDT Pulse 56 04/10/2022 4:25 PM CDT Temperature 36.9 ??C (98.4 ??F) 04/10/2022 4:25 PM CD T Respiratory Rate 18 04/10/2022 9:05 AM CDT Oxygen Saturation 96% 04/10/2022 4:25 PM CDT Inhaled Oxygen Concentration - - Weight 75.3 kg (166 lb) 04/09/2022 7:02 PM CDT Height 160 cm (5' 3 ) 04/09/2022 7:02 PM CDT Body Mass Index 29.41 04/09/2022 7:02 PM CDT documented in this encounter Discharge Summaries * Delfina Zendejas MD - 04/10/2022 4:50 PM CDT Inpatient Discharge Summary BRIEF OVERVIEW Admitting Provider: Michelle Abernathy MD Discharge Provider: Eren Cr MD Primary Care Physician at Discharge: Julio César Briseno MD [phone] Admission Date: 04/09/2022 Discharge Date: 04/10/2022 Admission Location: [facility] Problems/Diagnoses: Principal Problem: Proctitis Active Problems: Neuroendocrine carcinoma (CMS/HCC) (HCC) Stage 3b chronic kidney disease (HCC) 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 DETAILS OF HOSPITAL STAY Presenting Problem/History of Present Illness: Per 04/10 HPI: Ms. 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 She follows with Dr. Cr in oncology and is currently enrolled in the CABINET study with cycle 9 of 03/22/22. Ms. Chung was in her usual state of health until yesterday afternoon when she developed sudden onset rectal pain. This is described as the sensation of needing to have a bowelmovement and increased pressure. She took miralax and a suppository yesterday evening and has a small, pebble sized bowel movement but her pain persisted. Of note she has a colectomy and has had normal to slightly decreased output and typically will have a BM from her rectum once a month or so. Pain comes and goes and she is unclear what causes it to subside for 10-15 minutes at a time. The pain/pressure is severe enough that she describes it as being similar to child . No recent fevers, chills, chest pain, SOB, nausea, vomiting, melena, BRBPR, dysuria, hematuria, rash or edema. Upon ED arrival vital signs are stable. Labs with stable CKD with Cr 1.13 and stable thrombocytopenia of 113. CT abdomen/pelvis with interval increase in wall thickening and some mucosal edema of therectum, consistent with proctitis. No bowel obstruction is seen. She was given Cefe, Flagyl, Vancomycin, and hydromorphone 0.5 mg x1 and then admitted to oncology for further management. Hospital Course: Proctitis Presented with 1 day of severe [...] as anoscopy outpatient if this remains an issue. She was given asmall amount of oxycodone to take prn at home for pain. Neuroendocrine carcinoma Follows with Dr. Cr in medical oncology, currently on Cabinet study with cycle 9 on 03/22/2022. Held home study drug (cabozantinib/placebo). Will follow with Dr. Cr in a week as above. Thrombocytopenia Stable and secondary to malignancy. Platelets of 113 on admit. Benign essential hypertension Home Benicar 20-12.5 mg (half tablet qday), continued at discharge. 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 Reeves. Stage 3b chronic kidney disease Baseline Cr 0.9-1.2, at baseline on admission Active Issues Requiring Follow-up: - Follow with oncology - monitor rectal pain, consider CRS evaluation outpatient Test Results Pending at Discharge: none Operative Procedures Performed: None Other Procedures: None Pertinent Test Results: As above At discharge: Cr 1.3, total bili 1.4, direct bili 0.2, PLT 113 Discharge Details Physical Exam at Discharge: Discharge Condition: good Pulse: 56 Resp: 18 BP: 109/47 Temp: 36.9 ??C (98.4 ??F) Weight: 75.3 kg (166 lb) Pertinent Exam Findings at Discharge: Constitutional: NAD, well developed, well nourished Eyes: EOMI, anicteric ENT: NCAT, oropharynx normal, MMM Lungs: Clear to auscultation in all lung york, unlabored Cardiovascular: RRR, normal S1 and S2, no murmurs GI: Soft, non-tender, non-distended, bowel sounds +, colostomy in place Skin: No new rashes, lesions or bruises on visible skin Extremities: Normal without edema or cyanosis Neurologic: AOx4, CNII-XII intact, normal strength and sensation Psychiatric: Normal affect and mood I have reviewed the patient's vital signs. Discharge Disposition: Discharge to home or self care Code Status at Discharge: Full Discharge Instructions: - take the antibiotics ciprofloxacin and metronidazole for 7 days - you were prescribed oxycodone as needed for pain - follow with Dr. Cr in clinic next week Discharge Medications: Current Medications TAKE these medications ascorbic acid (vitamin C) 500 mg capsule Take 1 tablet by mouth patient safety attendant before breakfast cholecalciferol 2000 unit capsule Take 1 capsule (2,000 Units total) by mouth daily Commonly known as: VITAMIN D-3 ciprofloxacin 500 mg tablet Take 1 tablet (500 mg total) by mouth 2 (two) times a day for 7 days Commonly known as: CIPRO clotrimazole-betamethasone cream clotrimazole-betamethasone 1 %-0.05 % topical cream APPLY EXTERNALLY TO ABDOMEN TWICE DAILY NEEDED Commonly known as: LOTRISONE coenzyme [id number]-[id number] E 100-5 mg-unit capsule Take by mouth patient safety attendant before breakfast diphenoxylate-atropine 2.5-0.025 mg per tablet Take 1 tablet by mouth 4 (four) times a day as needed for diarrhea For: diarrhea caused by chemotherapy Commonly known as: LOMOTIL DULoxetine DR 30 mg capsule Take 1 capsule (30 mg total) by mouth daily Commonly known as: Cymbalta fluticasone propionate 50 mcg/actuation nasal spray fluticasone propionate 50 mcg/actuation nasal spray,suspension Commonly known as: FLONASE IMODIUM A-D ORAL [id number] cabozantinib/placebo 20 mg tablet Take 20 mg by mouth daily Take on an empty stomach (no food for 2 hours before and 1 hour after each dose).? Avoid Jas's Wort, grapefruit products and [place] oranges while on treatment. Commonly known as: /[id number] levothyroxine 75 mcg tablet TAKE 1 TABLET (75 MCG TOTAL) BY MOUTH HIGH DENSITY PRESS LABORER BEFORE BREAKFAST Commonly known as: SYNTHROID lidocaine-prilocaine cream Apply topically as needed for pain Apply a generous amount topically to port site 1 hour prior to lab/treatment, do not rub in, and cover with non absorbant dressing For: administration of local anesthetic drug Commonly known as: EMLA LORazepam 0.5 mg tablet Take 1 tablet 1 hour prior to MRI exam, may repeat dose if needed 15 minutes prior to MRI For: MRI scan Commonly known as: ATIVAN metroNIDAZOLE 500 mg tablet Take 1 tablet (500 mg total) by mouth 3 (three) times a day for 7 days Commonly known as: FLAGYL montelukast 10 mg tablet Take 10 mg by mouth as needed Commonly known as: SINGULAIR octreotide 100 mcg/mL injection Inject under the skin every 30 (thirty) days Commonly known as: SandoSTATIN olmesartan-hydrochlorothiazide 20-12.5 mg per tablet Take 0.5 tablets by mouth patient safety attendant before breakfast decrease dosage to 0.5 tablet daily 05/14/[address] Briseno at office visit. For: high blood pressure Commonly known as: BENICAR HCT ondansetron 8 mg tablet Take 1 tablet (8 mg total) by mouth every 8 (eight) hours as needed for nausea or vomiting For: prevent radiation-induced nausea and vomiting Commonly known as: ZOFRAN ostomy supplies misc Patient has colostomy and needs Cavilon 3M skin barrier film to manage. oxyCODONE 5 mg immediate release tablet Take 0.5 tablets (2.5 mg total) by mouth every 6 (six) hours as needed for pain For: pain Commonly known as: ROXICODONE prochlorperazine 10 mg tablet Take 1 tablet (10 mg total) by mouth every 6 (six) hours as needed for nausea For: nausea and vomiting caused by cancer drugs Commonly known as: COMPAZINE simvastatin 20 mg tablet Take 20 mg by mouth nightly Commonly known as: ZOCOR triamcinolone 0.1 % ointment Apply to itchy rash on hands twice daily until improved Commonly known as: KENALOG Xgeva 120 mg/1.7 mL (70 mg/mL) injection Xgeva Generic drug: denosumab Outpatient Follow-Up: Future Appointments Date Time Provider Department Center 04/12/2022 1:30 PM POD 5 [facility] 04/19/2022 10:00 AM FAST TRACK LAB [facility] 04/19/2022 10:30 AM Eren Cr Jr., MD [facility] 04/19/2022 11:30 AM POD 3 [facility] 04/19/2022 12:00 PM FAST TRACK RN [facility] 04/19/2022 1:30 PM PHARMACY[facility] 05/17/2022 11:00 AM FAST TRACK LAB [facility] 05/17/2022 11:45 AM Eren Cr Jr., MD [facility] 05/17/2022 12:45 PM PHARMACY, [facility] ON[facility] 05/18/2022 12:45 PM Po Newberry MD PhD DERM [facility] Dermatology 03/06/2023 10:00 AM Oksana Rivas NP ONC [facility] 13[facility] OB Contact Information for Follow-ups Julio César Briseno MD Specialty: Internal Medicine Relationship: PCP - General [facility] [address] Next Steps: Follow up documented in this encounter Discharge Instructions * Discharge Instructions* Delfina Zendejas MD - 04/10/2022 2:02 PM CDT - take the antibiotics ciprofloxacin and metronidazole for 7 days - you were prescribed oxycodone as needed for pain - follow with Dr. Cr in clinic next week documented in this encounter Medications at Time [...] capsuleIndicatio ns:supplement Take 1 tablet by mouth patient safety attendant before breakfast 07/04/2016 4 cholecalciferol (VITAMIN D-3) 2,000 unit capsule Take 1 capsule (2,000 Units total) by mouth daily 30 capsule 2 04/25/2019 3 ciprofloxacin (CIPRO) 500 mg tablet Take 1 tablet (500 mg total) by mouth 2 (two) times a day for 7 days 14 tablet 04/10/2022 2 clotrimazole-bet amethasone (LOTRISONE) cream Apply 1 Application topically daily as needed (rash) 4 coenzyme Q87-eyvaqbm E 100-5 mg-unit capsuleIndicatio ns:supplement Take 1 tablet by mouth patient safety attendant before breakfast 4 diphenoxylate-at ropine (LOMOTIL) 2.5-0.025 [...] rhinitis or allergies 4 [facility] cabozantinib/maris cebo (2018-02-122/A02 1602) 20 mg tabletIndication s:cancer study Take 1 tablet (20 mg total) by mouth nightly Take on an empty stomach (no food for 2 hours before and 1 hour after each dose).?? Avoid Jas's Wort, grapefruit products and [place] oranges while on treatment. placed on hold 09/26/22 for covid 01/29/2022 4 levothyroxine (SYNTHROID) 75 mcg tabletIndication s:Hypothyroidism due to medication TAKE 1 TABLET (75 MCG TOTAL) BY MOUTH HIGH DENSITY PRESS LABORER BEFORE BREAKFAST 90 tablet 1 02/22/2022 2 LORazepam (ATIVAN) 0.5 mg tabletIndication s:MRI scan Take 1 tablet 1 hour prior to MRI exam, may repeat dose if needed 15 minutes prior to MRI 2 tablet 08/21/2021 4 metroNIDAZOLE (FLAGYL) 500 mg tablet Take 1 tablet (500 mg total) by mouth 3 (three) times a day for 7 days 21 tablet 04/10/2022 2 montelukast (SINGULAIR) 10 mg tablet Take 1 [...] 05/06/2020 4 documented as of this encounter Ordered Prescriptions Prescription Sig Dispense Quantity Refills Last Filled Start Date End Date oxyCODONE (ROXICODONE) 5 mg immediate release tabletIndications: Pain Take 0.5 tablets (2.5 mg total) by mouth every 6 (six) hours as needed for pain 5 tablet 04/10/2022 3 metroNIDAZOLE (FLAGYL) 500 mg tablet Take 1 tablet (500 mg total) by mouth 3 (three) times a day for 7 days 21 tablet 04/10/2022 10/13/202 2 ciprofloxacin (CIPRO) 500 mg tablet Take 1 tablet (500 mg total) by mouth 2 (two) times a day for 7 days 14 tablet 04/10/2022 2 documented in this encounter Discharge Disposition Disposition Code Departure Means Destination Discharge to home or self care documented in this encounter Progress Notes * Camila Taylor RN - 04/10/2022 3:24 PM CDT 04/10/22 1524 Discharge Summary Discharge Disposition Home Equipment/Provider Needs No Home Needs Identified Discharge Additional Assistance Does the patient need discharge transport arranged? No Pt. To discharge home with no needs. Pt. Spouse will provide transportation home. * Camila Taylor RN - 04/10/2022 3:23 PM CDT 04/10/22 1523 Communications Important Message from Medicare notice given to patient? 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 Plan to discharge home when stable Primary Source of Transportation: car/spouse Does the patient need discharge transport arranged?: No (04/10/22 1015) Health Insurance Coverage: Medicare/AARP Prescription Coverage: yes Pharmacy: [facility] [id number] [place] [address] Primary Care Provider: Julio César Newton MD Prior to Admission: Primary Caregiver: Self Who does the patient or legal guardian want to receive education instruction and discharge plans for after care assistance?: Decline Support System: Spouse/Significant Other, Children Support system contact info (name, phone, availablity): Alejo Chung(spouse) [phone]/Caroline Chung(daughter) [phone] Home Care Services: No Durable Medical Equipment: None Living Arrangements: Spouse/significant other Type of Residence: Private residence Steps in home? : Yes, Outside of home Number of steps outside:: 2 steps (04/10/22 0900) Potential discharge needs include: Discharge needs are unknown at this time, cm will continue to follow for any discharge needs Dialysis: No Behavioral Health Services: No Behavioral Health Services: No (04/10/22 1013) Patient expects to be Discharged to: private residence 04/13/22 Private residence, (04/10/22 1015) Additional Information: pt. Live in a house with her spouse, she is retired. Pt. Denies DME or HH. Pt. Spouse will provide transportation home. Patient's Identified Problem/Goal Problem: Ensure acute medical [...] community resources. Plan includes: 1. Collaboration with patient, MD, direct care nurse, Medical Record Administrator, and other members of the health care team to assure needed interventions completed. 2. Return patient to optimal level of self-care post discharge. 3. Wax Ball Knock Out Worker will follow for Discharge Planning - interventions as needed 4. Anticipated level of care at discharge 5. Planned Discharge Disposition Based on a comprehensive family assessment, assistance with instrumental activities of daily livingafter discharge will be provided by the pt. spouse Through the course of our work I determined that the pt. spouse possesses the skill and ability to provide and monitor the care of the patient when he or she returns home. The pt. spouse has the capacity to provide/monitor/arrange for the care of the patient. Finally, we determined that the pt. spouse has the knowledge of available resources and that combining them with their existing resources will suffice to sustain and care for the patient when he or she returns home. The treatment team is aware of this information. All are in agreement with the aftercare plan. Camila Taylor RN documented in this encounter H&P Notes * Lynsey Davis MD - 04/10/2022 12:00 AM CDT History and Physical Division of [facility] Medicine Name: La Chung Today: April 09, 2022 : 1950 Age: 71 y.o. female Subjective Ms. Chung is a 71 y.o. female with chief complaint of rectal pain. HPI: Ms. 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 She follows with Dr. Cr in oncology and is currently enrolled in the CABINET study with cycle 9 of 03/22/22. Ms. Chung was in her usual state of health until yesterday afternoon when she developed sudden onset rectal pain. This is described as the sensation of needing to have a bowelmovement and increased pressure. She took miralax and a suppository yesterday evening and has a small, pebble sized bowel movement but her pain persisted. Of note she has a colectomy and has had normal to slightly decreased output and typically will have a BM from her rectum once a month or so. Pain comes and goes and she is unclear what causes it to subside for 10-15 minutes at a time. The pain/pressure is severe enough that she describes it as being similar to child . No recent fevers, chills, chest pain, SOB, nausea, vomiting, melena, BRBPR, dysuria, hematuria, rash or edema. Upon ED arrival vital signs are stable. Labs with stable CKD with Cr 1.13 and stable thrombocytopenia of 113. CT abdomen/pelvis with interval increase in wall thickening and some mucosal edema of therectum, consistent with proctitis. No bowel obstruction is seen. She was given Cefe, Flagyl, Vancomycin, and hydromorphone 0.5 mg x1 and then admitted to oncology for further management. I have independently reviewed and summarized prior pertinent medical records as above. Past Medical History: Diagnosis Date ??? Arthritis ??? Cancer (CMS/HCC) (HCC) ??? Family history of malignant hyperthermia grandson - questionable ??? Generalized headaches ??? GERD (gastroesophageal reflux disease) ??? Hypercholesteremia ??? Hypertension ??? Motion sickness ??? Personal history of other diseases of the digestive system History of hemorrhoids - (Added by TW Conv) ??? PONV (postoperative nausea and vomiting) ??? Status post chemotherapy 09/2019 immunotherapy ??? Status post radiation therapy 09/2019 Past Surgical History: Procedure Laterality Date ??? COLON SURGERY 10/03/2015 Right colectomy ??? EXAMINATION UNDER ANESTHESIA 05/30/2020 Examination under anesthesia and fulguration of pseudo epithelial hyperplasia ??? EXPLORATORY LAPAROTOMY 04/13/2019 Exploratory laparotomy with creation of divided loop colostomy ??? GALLBLADDER SURGERY Gallbladder Surgery - (Added by TW Conv) ? ? IR PICC LINE PLACEMENT > 5 YEARS N/A 12/23/2018 ? ? IR PICC LINE PLACEMENT > 5 YEARS N/A 02/17/2019 ? ? IR PICC LINE PLACEMENT > 5 YEARS N/A 06/09/2019 ? ? IR PICC LINE PLACEMENT > 5 YEARS N/A 08/04/2019 ??? JOINT REPLACEMENT Left 2014 ? ? PORT PLACEMENT CHEST >5 YEARS N/A 09/14/2021 ? ? MO REMOVAL OF TONSILS,<12 Y/O Tonsillectomy - (Added by TW Conv) ??? MO TOTAL ABDOM HYSTERECTOMY Hysterectomy - (Added by TW Conv) Current Facility-Administered Medications on File Prior to Encounter Medication ??? L-arginine 1.25%/L-lysine 1.25% infusion 1,000 mL Current Outpatient Medications on File Prior to Encounter Medication Sig ??? ascorbic acid, vitamin C, 500 mg capsule Take 1 tablet by mouth patient safety attendant before breakfast ??? cholecalciferol (VITAMIN D-3) 2,000 unit capsule Take 1 capsule (2,000 Units total) by mouth daily ??? clotrimazole-betamethasone (LOTRISONE) cream clotrimazole-betamethasone 1 %- 0.05 % topical cream APPLY EXTERNALLY TO ABDOMEN TWICE DAILY NEEDED ??? coenzyme H23-ooxzini E 100-5 mg-unit capsule Take by mouth patient safety attendant before breakfast ??? denosumab (Xgeva) 120 mg/1.7 mL (70 mg/mL) injection Xgeva ??? diphenoxylate-atropine (LOMOTIL) 2.5-0.025 mg per tablet Take 1 tablet by mouth 4 (four) times a day as needed for diarrhea ??? DULoxetine DR (CYMBALTA) 30 mg capsule Take 1 capsule (30 mg total) by mouth daily ??? fluticasone propionate (FLONASE) 50 mcg/actuation nasal spray fluticasone propionate 50 mcg/actuation nasal spray,suspension ??? [facility] cabozantinib/placebo (/[id number]) 20 mg tablet Take 20 mg by mouth daily Take on an empty stomach (no food for 2 hours before and 1 hour after each dose). Avoid [place]'s Wort, grapefruit products and [place] oranges while on treatment. ??? levothyroxine (SYNTHROID) 75 mcg tablet TAKE 1 TABLET (75 MCG TOTAL) BY MOUTH HIGH DENSITY PRESS LABORER BEFORE BREAKFAST ??? lidocaine-prilocaine (lidocaine-prilocaine) cream Apply topically as needed for pain Apply a generous amount topically to port site 1 hour prior to lab/treatment, do not rub in, and cover with non absorbant dressing ??? loperamide HCl (IMODIUM A-D ORAL) ??? LORazepam (ATIVAN) 0.5 mg tablet Take 1 tablet 1 hour prior to MRI exam, may repeat dose if needed 15 minutes prior to MRI ??? montelukast (SINGULAIR) 10 mg tablet Take 10 mg by mouth as needed ??? octreotide (SandoSTATIN) 100 mcg/mL injection Inject under the skin every 30 (thirty) days ??? olmesartan-hydrochlorothiazide (BENICAR HCT) 20-12.5 mg per tablet Take 0.5 tablets by mouth patient safety attendant before breakfast decrease dosage to 0.5 tablet daily 05/14/[address] Briseno at office visit. ??? ondansetron (ZOFRAN) 8 mg tablet Take 1 tablet (8 mg total) by mouth every 8 (eight) hours as needed for nausea or vomiting ??? ostomy supplies misc Patient has colostomy and needs Cavilon 3M skin barrier film to manage. ??? prochlorperazine (COMPAZINE) 10 mg tablet Take 1 tablet (10 mg total) by mouth every 6 (six) hours as needed for nausea ??? simvastatin (ZOCOR) 20 mg tablet Take 20 mg by mouth nightly ??? triamcinolone (KENALOG) 0.1 % ointment Apply to itchy rash on hands twice daily until improved ??? [DISCONTINUED] cholestyramine (QUESTRAN) 4 gram packet Take 1 packet by mouth 3 (three) times aday with meals (Patient not taking: Reported on 10/19/2021) ??? [DISCONTINUED] oxybutynin (DITROPAN) 5 mg tablet Take 1 tablet (5 mg total) by mouth 2 (two) times a day for 14 days Allergies Allergen Reactions ??? Morphine Blisters ??? Ezetimibe-Simvastatin Muscle pain and Unknown Muscle weakness ??? Ramipril Cough Social History Tobacco Use ??? Smoking status: Never ??? Smokeless tobacco: Never Substance and Sexual Activity ??? Drug use: No ??? Sexual activity: Defer Alcohol Use: Not on file Family History Problem Relation Age of Onset ??? Breast cancer Sister 61 Adenocarcinoma of breast - (Added by TW Conv) ??? Suicidality Father Family history of suicide - (Added by TW Conv) ??? Other (old age) Mother ??? Melanoma Daughter 30 Family History reviewed and non-contributory. Review of Systems All other systems were reviewed and are negative except for that which is listed in the History of Present Illness. Objective Vitals: 24hr Min/Max: Temp Min: 35.9 ??C (96.6 ??F) Max: 35.9 ??C (96.6 ??F) Pulse Min: 61 Max: 78 BP Min: 142/62 Max: 170/58 Resp Min: 14 Max: 25 SpO2 Min: 96 % Max: 100 % Most Recent Vitals: Vitals: 04/09/22 2300 BP: 142/62 Pulse: 61 Resp: 19 Temp: SpO2: 100% Intake/Output Summary (Last 24 hours) at 04/09/2022 2330 Last data filed at 04/09/2022 2243 Gross per 24 hour Intake 100 ml Output -- Net 100 ml Physical Exam Constitutional: NAD, well developed, well nourished Eyes: PERRL, EOMI, anicteric ENT: NCAT, oropharynx normal, MMM Lungs: Clear to auscultation in all lung y[place], unlabored Cardiovascular: RRR, normal S1 and S2, no murmurs, no JVD GI: Soft, non-tender, non-distended, bowel sounds +, colostomy in place Skin: No new rashes, lesions or bruises on visible skin Extremities: Normal without edema or cyanosis Neurologic: AOx4, CNII-XII intact, normal strength and sensation Psychiatric: Normal affect and mood I have reviewed the patient's vital signs. Lab/Diagnostic Review: Recent Results (from the past 36 hour(s)) CBC with auto differential Collection Time: 04/09/22 8:21 PM Result Value Ref Range WBC 5.1 3.8 - 9.9 K/cumm Hgb 12.2 11.9 - 15.5 g/dL Hct 35.7 35.6 - 45.5 % Plt 113 (L) 150 - 400 K/cumm MPV 10.2 9.1 - 12.3 fL RBC 3.65 (L) 3.90 - 5.20 M/cumm MCV 97.8 (H) 81.3 - 96.4 fL MCH 33.4 (H) 27.1 - 33.3 pg MCHC 34.2 32.3 - 35.7 g/dL RDW CV 13.6 11.1 - 14.9 % RDW SD 49.1 (H) 35.7 - 48.1 fL NRBC abs 0.00 0.00 - 0.01 K/cumm Comprehensive metabolic panel Collection Time: 04/09/22 8:21 PM Result Value Ref Range Sodium 137 135 - 145 mmol/L Potassium, pl 3.9 3.3 - 4.9 mmol/L Chloride 101 97 - 110 mmol/L CO2 24 22 - 32 mmol/L Anion gap 12 2 - 15 mmol/L BUN 13 8 - 25 mg/dL Creatinine 1.13 (H) 0.60 - 1.10 mg/dL Glucose 129 70 - 199 mg/dL Calcium 9.9 8.5 - 10.3 mg/dL Bilirubin, total 1.4 (H) 0.1 - 1.2 mg/dL Protein, pl 6.6 6.5 - 8.5 g/dL Albumin 4.1 3.5 - 5.0 g/dL Alk phos 73 40 - 130 Units/L ALT 25 7 - 45 Units/L AST 40 10 - 45 Units/L Differential, auto Collection Time: 04/09/22 8:21 PM Result Value Ref Range Neutrophil abs 3.9 1.7 - 6.5 K/cumm Imm gran abs 0.0 0.0 - 0.1 K/cumm Lymphocyte abs 0.5 (L) 0.8 - 3.3 K/cumm Monocyte abs 0.6 0.2 - 0.8 K/cumm Eosinophil abs 0.0 0.0 - 0.5 K/cumm Basophil abs 0.0 0.0 - 0.1 K/cumm Neutrophil pct 76.6 % Imm gran pct 0.2 % Lymphocyte pct 10.5 % Monocyte pct 11.7 % Eosinophil pct 0.6 % Basophil pct 0.4 % eGFR Collection Time: 04/09/22 8:21 PM Result Value Ref Range eGFR 51 (L) 90 - 130 mL/min/1.73 m2 POCT creatinine Collection Time: 04/09/22 8:28 PM Result Value Ref Range Creatinine POC 1.3 (H) 0.6 - 1.1 mg/dL COVID-19 Coronavirus RNA Nasopharyngeal Collection Time: 04/09/22 10:17 PM Specimen: Nasopharyngeal Result Value Ref Range COVID-19 RNA Negative Negative I have reviewed the laboratory results. Imaging Results: CT Abdomen Pelvis W Contrast Narrative: EXAMINATION: CT ABDOMEN PELVIS W CONTRAST HISTORY: [...] no acute fracture or suspicious osseous lesion. Impression: 1. Interval increased wall thickening and submucosal [...] diverticular disease. Dictated by: Lexie Adame M.D. I have independently reviewed and interpreted the CT abdomen/pelvis with the following findings: -increased wall thickening and stable metastatic disease Assessment/Plan * Proctitis Assessment & Plan Presented with 1 day of severe rectal [...] holding off on testing at this time Neuroendocrine carcinoma (CMS/HCC) (FORMERLY [facility]) Assessment & Plan Follows with Dr. Cr in medical oncology, currently on Cabinet study with cycle 9 on 03/22/2022 -Holding home study drug (cabozantinib/placebo) -Med onc consult in AM Thrombocytopenia (HCC) Assessment & Plan Stable and secondary to malignancy -Platelets of 113 on admit Benign essential hypertension Assessment & Plan Home Benicar 20-12.5 mg (half tablet qday) held given not on formulary -Will start Losartan [address] of Olmesartan 10 mg qday due to inpatient formulary -Holding home HCTZ for now, can add back on if needed 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) Assessment & Plan Secondary to neuroendocrine tumor of ileum, s/p resection with Dr. Reeves -Ostomy care consult placed Stage 3b chronic kidney disease (HCC) Assessment & Plan Baseline Cr 0.9-1.2, at baseline on admission documented in this encounter Consult Notes * Melissa Rios NP - 04/10/2022 10:39 AM CDTAssociated Order(s): IP [facility]ULT [facility] Brief Medical Oncology Consult Note: Subjective: Ms. 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 She endorses small amounts of stool from rectum s/p enema and suppository despite colostomy. She denies fevers, chills, nausea, vomiting. She states the sensation of increased pressure that radiates from her rectum to her abdomen became severe enough to present to ED for further evaluation. There, labs and vital signs were stable. CT AP showed proctitis; no obstruction seen. She received empiric cefe/flagyl/vanc and was admitted to medical oncology for further management. Today, she is very anxious and continues to have rectal pain. She states she is worries about her hydration. On exam, there are external hemorrhoids and redness with internal pain only. Discussed plan for CRS vs GI consult and supportive care for hopeful discharge within the next day. All questionsanswered, no complaints. Assessment/Plan: Well differentiated neuroendocrine tumor of ileum Dx 09/2015 s/p ex lap, bilateral salpingo-oophorectomy, partial omentectomy and peritoneal biopsy ([facility]). No e/o disease in chest at that time. Octreotide scan negative for somatostatin receptor positive tumor. Started on octreotide monthly injections (11/2015). Found to have widespread progression 11/2018. -PRRT 12/2018-07/2019 f/b Afinitor + monthly octreotide c/b pneumonitis. -Most recently started on CABINET study [cabozantinib] (07/21/2021-current). C9 on 03/22. -Last octreotide injection received 03/22. -Hold cabozantinib at this time. -Follows with Dr. Cr. No plans for inpatient chemotherapy or treatment change at this time. Proctitis 1 day of severe rectal pain and the sensation of needing to defecate. S/p rectal enema and suppository at home without improvement. Suspect 2/2 trauma vs internal hemorrhoids -CT AP c/w proctitis and otherwise stable disease. -Stool studies PRN. -Empiric Vanc/Cefe/Flagyl ( ) -Pain regimen: PRN Oxycodone 5 mg q6 hr, PRN hydromorphone 0.5 mg q2 hr -Agree w/ GI vs CRS consult; appreciate recommendations. -Agree with supportive care per primary team. Staffed with Dr. Cr. Medical oncology will continue to follow. Melissa Rios, RN, MSN, [facility] Medical Oncology [phone] Cosigned by Eren Cr Jr., MD at 04/10/2022 2:55 PM CDT Associated attestation - Eren Cr MD - 04/10/2022 2:55 PM CDT Images from the original note were not included. UPPER EXTREMITY SURGEON Attestation La Chung : 1950 DATE OF VISIT: 04/10/22 I have seen and examined the patient on 04/10/2022 with the Nurse Practitioner and I have reviewed the U[employer]ER EXT[employer] SURGEON note and agree with the findings documented in the note Subjective Interval History Ms. La Chung is a 71 y.o. Non- female with a history of metastatic neuroendocrine tumor admitted for rectal pain Notes reviewed. Labs and scans reviewed. Patient states that despite having an ostomy, she feels the urge to defecate and took stool softeners and several enemas. She then had severe rectal pain last night prompting an ER visit. Scan showedstable disease but with proctitis. She denies any bleeding Objective Vitals: Most Recent : BP: 120/51 Temp: 36.8 ??C (98.2 ??F) Temp src: Oral Pulse: 59 Resp: 18 SpO2: 98 % Height: 160 cm (5' 3 ) Weight: 75.3 kg (166 lb) Physical Exam: GENERAL: Age appropriate, no acute distress HEENT: sclera anicteric Chest: unlabored breathing Heart: regular rate and rhythm Abdomen: soft, non-tender, non distended Extremities: no edema Neurologic: Alert, speech normal, no gross motor or sensory deficits noted Psychiatric: Appropriate affect Skin: warm, dry, no rashes or bruises noted Perineum with no erythema. Multiple external hemorrhoids noted, minimal erythema in the anus 6 oclock area. Lab/Radiology/Diagnostic Review: Recent Results (from the past 24 hour(s)) CBC with auto differential Collection Time: 04/09/22 8:21 PM Result Value Ref Range WBC 5.1 3.8 - 9.9 K/cumm Hgb 12.2 11.9 - 15.5 g/dL Hct 35.7 35.6 - 45.5 % Plt 113 (L) 150 - 400 K/cumm MPV 10.2 9.1 - 12.3 fL RBC 3.65 (L) 3.90 - 5.20 M/cumm MCV 97.8 (H) 81.3 - 96.4 fL MCH 33.4 (H) 27.1 - 33.3 pg MCHC 34.2 32.3 - 35.7 g/dL RDW CV 13.6 11.1 - 14.9 % RDW SD 49.1 (H) 35.7 - 48.1 fL NRBC abs 0.00 0.00 - 0.01 K/cumm Comprehensive metabolic panel Collection Time: 04/09/22 8:21 PM Result Value Ref Range Sodium 137 135 - 145 mmol/L Potassium, pl 3.9 3.3 - 4.9 mmol/L Chloride 101 97 - 110 mmol/L CO2 24 22 - 32 mmol/L Anion gap 12 2 - 15 mmol/L BUN 13 8 - 25 mg/dL Creatinine 1.13 (H) 0.60 - 1.10 mg/dL Glucose 129 70 - 199 mg/dL Calcium 9.9 8.5 - 10.3 mg/dL Bilirubin, total 1.4 (H) 0.1 - 1.2 mg/dL Protein, pl 6.6 6.5 - 8.5 g/dL Albumin 4.1 3.5 - 5.0 g/dL Alk phos 73 40 - 130 Units/L ALT 25 7 - 45 Units/L AST 40 10 - 45 Units/L Differential, auto Collection Time: 04/09/22 8:21 PM Result Value Ref Range Neutrophil abs 3.9 1.7 - 6.5 K/cumm Imm gran abs 0.0 0.0 - 0.1 K/cumm Lymphocyte abs 0.5 (L) 0.8 - 3.3 K/cumm Monocyte abs 0.6 0.2 - 0.8 K/cumm Eosinophil abs 0.0 0.0 - 0.5 K/cumm Basophil abs 0.0 0.0 - 0.1 K/cumm Neutrophil pct 76.6 % Imm gran pct 0.2 % Lymphocyte pct 10.5 % Monocyte pct 11.7 % Eosinophil pct 0.6 % Basophil pct 0.4 % eGFR Collection Time: 04/09/22 8:21 PM Result Value Ref Range eGFR 51 (L) 90 - 130 mL/min/1.73 m2 POCT creatinine Collection Time: 04/09/22 8:28 PM Result Value Ref Range Creatinine POC 1.3 (H) 0.6 - 1.1 mg/dL COVID-19 Coronavirus RNA Nasopharyngeal Collection Time: 04/09/22 10:17 PM Specimen: Nasopharyngeal Result Value Ref Range COVID-19 RNA Negative Negative Urinalysis reflex to microscopic Collection Time: 04/09/22 11:29 PM Result Value Ref Range Color, ur Straw Yellow Clarity, ur Clear Clear Specific gravity, ur >1.042 (H) 1.003 - 1.030 pH, urine 6.5 Protein, ur ql 1+ (A) Negative Glucose, ur ql Negative Negative Ketones, ur Negative Negative Bilirubin, ur Negative Negative Blood, ur Trace (A) Negative Urobilinogen, ur <2.0 <2.0 mg/dL Nitrite, ur Negative Negative Leukocyte esterase, ur 1+ (A) Negative UA reflex comment Reflex to microscopic UA will be performed. Urinalysis, microscopic only Collection Time: 04/09/22 11:29 PM Result Value Ref Range WBC, ur 21-50 (A) 0 - 5 /HPF RBC, ur 3-5 (A) 0 - 2 /HPF Epithelial cells, squamous, ur 1-5 0 - 5 /HPF Mucous, ur Present (A) Hematology Lab History Some values may be hidden. Unless noted otherwise, only the newest values recorded on each date aredisplayed. Labs - Hematology Latest Ref Range 01/29/22 02/22/22 03/22/22 04/09/22 WBC 3.8 - 9.9 K/cumm 3.2 (A) 3.9 3.0 (A) 5.1 Total Hb, POC 11.9 - 15.5 g/dL 11.0 (A) 11.0 (A) 11.4 (A) 12.2 Hct 35.6 - 45.5 % 30.9 (A) 32.7 (A) 35.0 (A) 35.7 Plt 150 - 400 K/cumm 88 (A) 98 (A) 97 (A) 113 (A) Neutrophil abs 1.7 - 6.5 K/cumm 1.8 2.7 2.1 3.9 Lymphocytes, abs 0.8 - 3.3 K/cumm 0.5 (A) 0.5 (A) 0.4 (A) 0.5 (A) (A) Abnormal value Comments are available for some flowsheets but are not being displayed. Chem/LFT Lab History Some values may be hidden. Unless noted otherwise, only the newest values recorded on each date aredisplayed. Labs-Chem/LFT Latest Ref Range 01/29/22 02/22/22 03/22/22 04/09/22 Sodium 135 - 145 mmol/L 139 143 139 137 Creatinine 0.60 - 1.10 mg/dL 0.97 1.12 (A) 1.20 (A) 1.13 (A) Bilirubin, total 0.1 - 1.2 mg/dL 0.5 0.7 0.6 1.4 (A) AST 10 - 45 Units/L 24 33 29 40 ALT 7 - 45 Units/L 16 23 20 25 CrCl- Actual Body Weight (Cockcroft-Gault) 62.7 54 50.6 45.8 Some values recorded on this date have [...] some flowsheets but are not being displayed. Radiology: CT Abdomen Pelvis W Contrast Result Date: 04/10/2022 1. Interval increased wall thickening and submucosal edema of the rectum with surrounding strandingof the perirectal fat, consistent with proctitis. No findings of bowel obstruction. 2. Stable metastatic disease in the abdomen and pelvis as evidenced by hepatic metastases, hepatic serosal deposits, vaginal cuff metastases, numerous soft tissue nodules studding the sigmoid colon and loops of small bowel, peritoneal nodules and retroperitoneal lymphadenopathy. 3. Stable diffuse thickening of thesigmoid colon with multiple colonic diverticula, likely representing sequela of prior diverticular disease. Dictated by: Lexie Adame M.D. The radiology attending physician has personally reviewed this study, and had reviewed and/or edited this written report and agrees with it. Electronically signed by: Jeet Yan M.D. Assessment/Plan Ms. La Chung is a 71 y.o. Non- female with neuroendocrine tumor on the CABINET study -Discussed with patient her CT scan results showing stable disase. There is walll thickening in therectum with submucosal edema -currently with no pain -discussed with the patient possible anoscopy as out patient if rectal issues persist. Discussed that she has an ostomy and should not be doing enemas. Discussed discharge today with close follow up in 1 week to see m in clinic She will go home on antibiotics and tramadol prn All of her and her 's questions were answered. She understands and was in agreement with theplan of care. Eren Cr MD [employer] [facility] [employer] documented in this encounter ED Notes * Adonay Bethea MD - 04/09/2022 9:04 PM CDT HPI Chief Complaint Patient presents with ??? Rectal Pain HPI Patient is a 71-year-old female with a past medical history metastatic neuroendocrine cancer to theileum, liver, omentum, bone and vaginal cuff on experimental chemotherapy drug, status post ostomy placed 3 years ago presenting to the emergency room today due to rectal pain. She states that she still has a bowel movement per rectum about once a month. This month she had the sensation that she need to have a rectal bowel movement although she was not able to expel it. She called her oncology office and they recommend she take MiraLax, she is done this in the past but usually resolves the symptoms. This time it did not work and then her oncology office recommended a enema which produced diarrhea but she says the sensation like she says bowel movement and she is not been able to have 1 yet.Patient describes the peristaltic type pain that comes in waves. Patient denies fevers, chills, abdominal pain, weakness in any of her extremities, nausea, vomiting, change in her ostomy output. Patient History: Patient Active Problem List Diagnosis Date Noted ??? Dehydration 03/15/2022 ??? Depressive disorder 02/15/2022 ??? Hypomagnesemia 10/16/2021 ??? Hearing loss 08/30/2021 ??? Vertigo 08/30/2021 ??? Muscle weakness 08/16/2021 ??? Nausea 08/11/2021 ??? Hypophosphatemia 06/14/2021 ??? Closed displaced fracture of head of right radius 11/20/2020 ??? 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 Colostomy complication, unspecified ([facility]) 04/14/2020 ??? Abdominal pain 01/13/2020 ??? Benign essential hypertension 01/13/2020 ??? Blepharitis 01/13/2020 ??? Cough 01/13/2020 ??? Diarrhea 01/13/2020 ??? Enthesopathy of knee 01/13/2020 ??? Excess or deficiency of vitamin D 01/13/2020 ??? Knee pain 01/13/2020 ??? Low back pain 01/13/2020 ??? Mass of ovary 01/13/2020 ??? Osteoarthritis of knee 01/13/2020 ??? Pure hypercholesterolemia 01/13/2020 ??? Shoulder joint pain 01/13/2020 ??? Epithelial hyperplasia 07/22/2019 ??? Colostomy in place ([facility]) ([facility]) 05/14/2019 ??? Acute blood loss anemia 04/17/2019 ??? Hypocalcemia 04/14/2019 ??? ANNE-MARIE (acute kidney injury) (CMS/HCC) (HCC) 04/14/2019 ??? Large bowel obstruction (CMS/HCC) (HCC) 04/12/2019 ??? Bone metastasis (CMS/HCC) (HCC) 03/02/2019 ??? Neuro-endocrine carcinoma (CMS/HCC) (HCC) 06/18/2018 ??? Neuroendocrine tumor 01/06/2018 ??? Mixed incontinence 10/23/2017 ??? H/O actinic keratosis 07/05/2017 ??? Personal history of diseases of skin or subcutaneous tissue 07/05/2017 ??? 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) 04/09/2017 ??? Anemia 04/09/2016 ??? Neuroendocrine carcinoma (CMS/HCC) (HCC) 10/24/2015 ??? Obesity with body mass index 30 or greater 09/01/2015 ??? Family history of malignant neoplasm of other organs or systems 06/29/2015 ??? Family history of melanoma 06/29/2015 ??? Abnormal findings on diagnostic imaging of breast 06/07/2014 Past Medical History: Diagnosis Date ??? Arthritis ??? Cancer (CMS/HCC) (HCC) ??? Family history of malignant hyperthermia grandson - questionable ??? Generalized headaches ??? GERD (gastroesophageal reflux disease) ??? Hypercholesteremia ??? Hypertension ??? Motion sickness ??? Personal history of other diseases of the digestive system History of hemorrhoids - (Added by [facility]) ??? PONV (postoperative nausea and vomiting) ??? Status post chemotherapy 09/2019 immunotherapy ??? Status post radiation therapy 09/2019 Past Surgical History: Procedure Laterality Date ??? COLON SURGERY 10/03/2015 Right colectomy ??? EXAMINATION UNDER ANESTHESIA 05/30/2020 Examination under anesthesia and fulguration of pseudo epithelial hyperplasia ??? EXPLORATORY LAPAROTOMY 04/13/2019 Exploratory laparotomy with creation of divided loop colostomy ??? GALLBLADDER SURGERY Gallbladder Surgery - (Added by [facility]) ? ? IR PICC LINE PLACEMENT > 5 YEARS N/A 12/23/2018 ? ? IR PICC LINE PLACEMENT > 5 YEARS N/A 02/17/2019 ? ? IR PICC LINE PLACEMENT > 5 YEARS N/A 06/09/2019 ? ? IR PICC LINE PLACEMENT > 5 YEARS N/A 08/04/2019 ??? JOINT REPLACEMENT Left 2014 ? ? PORT PLACEMENT CHEST >5 YEARS N/A 09/14/2021 ? ? MO REMOVAL OF TONSILS,<12 Y/O Tonsillectomy - (Added by [facility]) ??? MO TOTAL ABDOM HYSTERECTOMY Hysterectomy - (Added by [facility]) Family History Problem Relation Age of Onset ??? Breast cancer Sister 61 Adenocarcinoma of breast - (Added by [facility]) ??? Suicidality Father Family history of suicide - (Added by [facility]) ??? Other (old age) Mother ??? Melanoma Daughter 30 Social History Tobacco Use ??? Smoking status: Never ??? Smokeless tobacco: Never Substance and Sexual Activity ??? Drug use: No ??? Sexual activity: Defer Alcohol Use: Not on file Social History Social History Narrative : (Added by [facility]) Retired : (Added by [employer]) Occasional alcohol use : (Added by [employer]) Review of Systems Review of Systems Constitutional: Negative for chills and fever. HENT: Negative for ear pain and sore throat. Eyes: Negative for pain and visual disturbance. Respiratory: Negative for cough and shortness of breath. Cardiovascular: Negative for chest pain and palpitations. Gastrointestinal: Positive for rectal pain. Negative for abdominal pain, blood in stool and vomiting. Genitourinary: Negative for dysuria and hematuria. Musculoskeletal: Negative for arthralgias and back pain. Skin: Negative for color change and rash. Neurological: Negative for seizures and syncope. All other systems reviewed and are negative. Physical Exam ED Triage Vitals [04/09/22 1902] Temp Pulse Resp BP SpO2 (!) 35.9 ??C (96.6 ??F) 78 16 147/76 99 % Temp src Heart Rate Source Patient Position BP Location FiO2 (%) Skin -- -- -- -- Height Height Method Weight Weight Method 1.6 m (5' 3 ) Stated 75.3 kg (166 lb) Stated Physical Exam Vitals and nursing note reviewed. Constitutional: General: She is not in acute distress. Appearance: She is well-developed. She is not ill-appearing. HENT: Head: Normocephalic and atraumatic. Eyes: Conjunctiva/sclera: Conjunctivae normal. Cardiovascular: Rate and Rhythm: Normal rate and regular rhythm. Heart sounds: Normal heart sounds. No murmur heard. Pulmonary: Effort: Pulmonary effort is normal. No respiratory distress. Breath sounds: Normal breath sounds. Abdominal: General: Bowel sounds are normal. There is no distension. Palpations: Abdomen is soft. Tenderness: There is no abdominal tenderness. There is no guarding. Musculoskeletal: Cervical back: Neck supple. Skin: General: Skin is warm and dry. Capillary Refill: Capillary refill takes less than 2 seconds. Neurological: General: No focal deficit present. Mental Status: She is alert and oriented to person, place, and time. Sensory: No sensory deficit. Motor: No weakness. MDM Patient is a 71-year-old female with a past medical history metastatic neuroendocrine cancer to theileum, liver, omentum, bone and vaginal cuff on experimental chemotherapy drug, status post ostomy placed 3 years ago presenting to the emergency room today due to rectal pain. Vital signs on arrivalstable. Physical exam listed above. Differential diagnosis includes large bowel obstruction, volvulus, tumor metastasis, fecal impaction. We will work the patient up with a CMP, CBC, UA, and a CT abdomen with and without contrast. For symptomatic relief patient was given morphine. Disposition: FRANNIE Bethea MD Emergency Medicine PGY 1 Portions of the record may have been created with voice recognition software. Occasional wrong-word or '[id number]' substitutions may have occurred due to the inherent limitations of voice recognition software. Read the chart carefully and recognize, using context, where substitutions have occurred. Attending Summary of Care ED Course as of 04/11/22 0751 Time: 04/09 2037 Comment: This is a 71-year-old female history of neuroendocrine tumor of ileum metastatic to the liver, omentum, bone, and vaginal cuff, colostomy who presents today with rectal pain. She says that this has been going on about 2-3 days now. She is had some scant small stools from her rectum. She says that she typically does have some stools from her rectum but thinks that it may be more frequent. She is having significant pressure that feels like it is inside her abdomen that comes and goes. She denies any blood. She continues to have colostomy output which he says maybe slightly decreased. She denies any dysuria, fevers, no abdominal pain at the moment, no nausea vomiting, tolerating p.o. at home. Her vital signs on arrival are within normal limits apart from borderline low temperature. She is overall well-appearing, nontoxic. Her abdomen is benign, rectal exam with brown stool, otherwise within normal limits. Concern would be for potential worsening metastasis, large bowel obstruction, less likely volvulus, intra-abdominal infection. Plan will be for CT abdomen pelvis, screening labs, pain control. By: Deo Blake MD Time: 04/09 2127 Value: Bilirubin, total(!): 1.4 Comment: (Reviewed) By: Deo Blake MD Time: 04/09 2207 Comment: IMPRESSION: ?? 1. Interval increased wall thickening and some mucosal edema of the rectum with surrounding bending of the perirectal fat, consistent with proctitis. No findings of bowel obstruction. 2. Stable metastatic disease in the abdomen pelvis as evidenced by hepatic metastases, hepatic serosal deposits, vaginal cuff metastases, numerous soft tissue nodules studding the sigmoid colon and loops of small bowel, peritoneal nodules and retroperitoneal lymphadenopathy. 3. Stable diffuse thickening of the sigmoid colon with multiple colonic diverticula, likely representing sequela of prior diverticular disease. By: Adonay Bethea MD Time: 04/09 2207 Comment: Will start broad spectrum antibiotics, admit to oncology By: Adonay Bethea MD Time: 04/09 2324 Comment: Will admit pt to onc service By: Adonay Bethea MD Time: 04/09 2337 Comment: Spoke with [facility] and informed them their pateint is being admitted to onc flooe for proctitis By: Adonay Bethea MD Time: 04/10 7 Value: WBC, ur(!): 21-50 Comment: (Reviewed) By: Deo Blake MD Time: 04/10 200 Comment: Spoke with oncology and they said the patient is okay to move to the floor By: Adonay Bethea MD Time: 04/10 717 Comment: Received in sign out, admitted to oncology service, metastatic neurohormonal tumor, presented for constipation and rectal pain, has proctitis, on broad spectrum abx, pending moving up stairs By: Shawn Barrios MD Time: 04/10 739 Comment: Taking over care for this patient. 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 Accepted for admission to Oncology for further care. On broad-spectrum antibiotics. By: Mj Abdul MD PhD Time: 04/10 843 Value: CT Abdomen Pelvis W Contrast Comment: Final CT AP read showed: findings consistent with proctitis; stable metastatic disease. By: Mj Abdul MD PhD Time: 04/10 910 Comment: Patient transferred to [place] for further care. 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 Reeves with bilateral salpingo-oophorectomy, omentectomy and R colectomy . 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 She was treated with octreotide. Ga-68 DOTATATE-PET/CT showed interval progression of metastatic neuroendocrine tumor with hepatic lesions , osseous lesions, serosal and vaginal cuff mets. 02/26 ct showed thickening of the sigmoid colon. She is currently on a CABINET study. She apparently has bowel movements through her rectum occasionally and today complains of severe rectal pain. She is unable to pass stool. ROS: there are no constitutional, eyes, ears/nose/mouth/throat, cardiovascular, respiratory, GI, , musculoskeletal, integumentory, neurological , psychiatric, endocrine, hematologic, lymphatic, allergic, immunologic complaints. Past Medical:[facility] MEDS: see nurses notes ALL: see nurses notes Family history:dm Social history: non smoker Vital signs: reviewed GENERAL: obese distended abdomen SKIN: no rashes or masses HEENT: PERRL, EOMs intact C+S clear NECK: no thyromegaly or masses LYMPH: no supraclavicular or cervical adenopathy CHEST: clear to A+P CARDIAC: no JVD, nl s1, s2 , no murmurs, gallops or rubs BACK: no masses or tenderness ABD: nl bs, no HSmegaly non tender NEURO: alert, oriented, 5/5 strength in extremities, no pronator drift EXT: no clubbing, cyanosis or edema Rectal tenderness ASSESSMENT/PLAN: Plan ct and disimpaction if needed. I have seen and examined the patient on 04/09/2022. I agree with the findings and plan of care as documented in the resident's note. Michelle Abernathy MD 04/09/222117 * Evangelina Lester RN - 04/09/2022 7:03 PM CDT Pt arrives to ED from home with c/o rectal pain and pressure. Pt had colostomy placed three years ago and states it feels like she needs to have a BM through her rectum. PmHx: HTN, cancer On arrival pt is A&Ox4, denies CP/SOB/N/V/D. documented in this encounter Miscellaneous Notes * Hospital Course - Delfina Zendejas MD - 04/10/2022 4:50 PM CDT Proctitis Presented with 1 day of severe [...] as anoscopy outpatient if this remains an issue. She was given asmall amount of oxycodone to take prn at home for pain. Neuroendocrine carcinoma Follows with Dr. Cr in medical oncology, currently on Cabinet study with cycle 9 on 03/22/2022. Held home study drug (cabozantinib/placebo). Will follow with Dr. Cr in a week as above. Thrombocytopenia Stable and secondary to malignancy. Platelets of 113 on admit. Benign essential hypertension Home Benicar 20-12.5 mg (half tablet qday), continued at discharge. 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 Reeves. Stage 3b chronic kidney disease Baseline Cr 0.9-1.2, at baseline on admission * Significant Event - Delfina Zendejas MD - 04/10/2022 3:54 PM CDT Accept Note Division of [facility] Medicine Name: La Chung Today: April 10, 2022 : 1950 Age: 71 y.o. female I assumed care of La Chung on 04/10/22. I have seen and examined the patient and the medical record. I agree with the Admission H&P with date of service today. Update: Pain decreased this morning. Discussed with primary oncologist, Dr. Cr. Will discharge home with PO antibiotics for proctitis. Patient has oncology follow up scheduled for next week. Patient followswith CRS (Dr. Reeves) outpatient. Can refer for further assessment such as anoscopy outpatient if this remains an issue. Discharge Planning I have spent 30 minutes on discharge planning activities. Time spent was on Coordination of care, Follow up , Counselling with patient/family, discharge exam, and Other provider communication. Delfina Zendejas MD * Plan of Care - Laura Hidalgo RN - 04/10/2022 9:46 AM CDT Problem: Lack of Knowledge: Goal: Ability to state ways to decrease the risk of falls will improve Outcome: Progressing Problem: Safety: Goal: Will remain free from falls Outcome: Progressing Goal: Will remain free from injury from falls Outcome: Progressing Goal: Will remain free from falls and injury in home environment Outcome: Progressing Problem: Activity: Goal: Ability to implement measures to reduce episodes of fatigue will improve Outcome: Progressing Problem: Bowel/Gastric: Goal: Will not experience complications related to bowel motility Outcome: Progressing Problem: Lack of Knowledge: Goal: Knowledge of diagnostic tests will improve Outcome: Progressing Goal: Knowledge of disease or condition will improve Outcome: Progressing Goal: Knowledge of the prescribed therapeutic regimen will improve Outcome: Progressing Goal: Knowledge of pain management will improve Outcome: Progressing Problem: Coping: Goal: Ability to identify and develop effective coping behavior will improve Outcome: Progressing Problem: Fluid Volume: Goal: Will maintain adequate fluid volume Outcome: Progressing Problem: Health Behavior: Goal: Compliance with treatment plan for underlying cause of condition will improve Outcome: Progressing Goal: Ability to manage health-related needs will improve Outcome: Progressing Goal: Identification of resources available to assist in meeting health care needs will improve Outcome: Progressing Problem: Medication: Goal: Compliance with prescribed medication regimen will improve Outcome: Progressing Goal: Risk for medication side effects will decrease Outcome: Progressing Problem: Nutritional: Goal: Maintenance of adequate nutrition will improve Outcome: Progressing Problem: Physical Regulation: Goal: Complications related to the disease process, condition or treatment will be avoided or minimized Outcome: Progressing Goal: Ability to maintain clinical measurements within normal limits will improve Outcome: Progressing Problem: Respiratory: Goal: Ability to maintain adequate ventilation will improve Outcome: Progressing Problem: Sensory: Goal: General experience of comfort will improve Outcome: Progressing Problem: Skin Integrity: Goal: Risk for impaired skin integrity will decrease Outcome: Progressing Goals: Summary: Admission * ED Re-evaluation Note - Mj Abdul MD PhD - 04/10/2022 8:46 AM CDT ED Re-evaluation ED Course as of 04/10/22 0929 Time: 04/09 2037 Comment: This is a 71-year-old female history of neuroendocrine tumor of ileum metastatic to the liver, omentum, bone, and vaginal cuff, colostomy who presents today with rectal pain. She says that this has been going on about 2-3 days now. She is had some scant small stools from her rectum. She says that she typically does have some stools from her rectum but thinks that it may be more frequent. She is having significant pressure that feels like it is inside her abdomen that comes and goes. She denies any blood. She continues to have colostomy output which he says maybe slightly decreased. She denies any dysuria, fevers, no abdominal pain at the moment, no nausea vomiting, tolerating p.o. at home. Her vital signs on arrival are within normal limits apart from borderline low temperature. She is overall well-appearing, nontoxic. Her abdomen is benign, rectal exam with brown stool, otherwise within normal limits. Concern would be for potential worsening metastasis, large bowel obstruction, less likely volvulus, intra-abdominal infection. Plan will be for CT abdomen pelvis, screening labs, pain control. By: Deo Blake MD Time: 04/09 2127 Value: Bilirubin, total(!): 1.4 Comment: (Reviewed) By: Deo Blake MD Time: 04/09 2207 Comment: IMPRESSION: 1. Interval increased wall thickening and some mucosal edema of the rectum with surrounding bending of the perirectal fat, consistent with proctitis. No findings of bowel obstruction. 2. Stable metastatic disease in the abdomen pelvis as evidenced by hepatic metastases, hepatic serosal deposits, vaginal cuff metastases, numerous soft tissue nodules studding the sigmoid colon and loops of small bowel, peritoneal nodules and retroperitoneal lymphadenopathy. 3. Stable diffuse thickening of the sigmoid colon with multiple colonic diverticula, likely representing sequela of prior diverticular disease. By: Adonay Bethea MD Time: 04/09 2207 Comment: Will start broad spectrum antibiotics, admit to oncology By: Adonay Bethea MD Time: 04/09 2324 Comment: Will admit pt to onc service By: Adonay Bethea MD Time: 04/09 2337 Comment: Spoke with [facility] and informed them their pateint is being admitted to onc flooe for proctitis By: Adonay Bethea MD Time: 04/10 7 Value: WBC, ur(!): 21-50 Comment: (Reviewed) By: Deo Blake MD Time: 04/10 200 Comment: Spoke with oncology and they said the patient is okay to move to the floor By: Adonay Bethea MD Time: 04/10 717 Comment: Received in sign out, admitted to oncology service, metastatic neurohormonal tumor, presented for constipation and rectal pain, has proctitis, on broad spectrum abx, pending moving up stairs By: Shawn Barrios MD Time: 04/10 739 Comment: Taking over care for this patient. 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 Accepted for admission to Oncology for further care. On broad-spectrum antibiotics. By: Mj Abdul MD PhD Time: 04/10 843 Value: CT Abdomen Pelvis W Contrast Comment: Final CT AP read showed: findings consistent with proctitis; stable metastatic disease. By: Mj Abdul MD PhD Time: 04/10 910 Comment: Patient transferred to [place] for further care. By: Mj Abdul MD PhD Mj Abdul MD PhD Resident 04/10/22928 * Plan of Care - Spenser Dodge RN - 04/10/2022 4:11 AM CDT Case Management: Patient is ER boarder, still meets medical necessity for IP admit. * Assessment & Plan Note - Lynsey Davis MD - 04/09/2022 11:57 PM CDTAssociated Problem(s): Thrombocytopenia (HCC) Stable and secondary to malignancy -Platelets of 113 on admit * Assessment & Plan Note - Lynsey Davis MD - 04/09/2022 11:57 PM CDTAssociated Problem(s): Stage 3b chronic kidney disease (HCC) Baseline Cr 0.9-1.2, at baseline on admission * Assessment & Plan Note - Lynsey Davis MD - 04/09/2022 11:50 PM CDTAssociated Problem(s): Proctitis Presented with 1 day of severe [...] holding off on testing at this time * Assessment & Plan Note - Lynsey Davis MD - 04/09/2022 11:49 PM CDTAssociated Problem(s): Neuroendocrine carcinoma (CMS/HCC) (HCC) Follows with Dr. Cr in medical oncology, currently on Cabinet study with cycle 9 on 03/22/2022 -Holding home study drug (cabozantinib/placebo) -Med onc consult in AM * Assessment & Plan Note - Lynsey Davis MD - 04/09/2022 11:48 PM CDTAssociated Problem(s): 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) Secondary to neuroendocrine tumor of ileum, s/p resection with Dr. Reeves -Ostomy care consult placed * Assessment & Plan Note - Lynsey Davis MD - 04/09/2022 11:46 PM CDTAssociated Problem(s): Benign essential hypertension Home Benicar 20-12.5 mg (half tablet qday) held given not on formulary -Will start Losartan [address] of Olmesartan 10 mg qday due to inpatient formulary -Holding home HCTZ for now, can add back on if needed * Subjective & Objective - Lynsey Davis MD - 04/09/2022 11:30 PM CDT History and Physical Division of Hospital Medicine Name: La Chung Today: April 09, 2022 : 1950 Age: 71 y.o. female Subjective Ms. Chung is a 71 y.o. female with chief complaint of rectal pain. HPI: Ms. 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 She follows with Dr. Cr in oncology and is currently enrolled in the CABINET study with cycle 9 of 03/22/22. Ms. Chung was in her usual state of health until yesterday afternoon when she developed sudden onset rectal pain. This is described as the sensation of needing to have a bowelmovement and increased pressure. She took miralax and a suppository yesterday evening and has a small, pebble sized bowel movement but her pain persisted. Of note she has a colectomy and has had normal to slightly decreased output and typically will have a BM from her rectum once a month or so. Pain comes and goes and she is unclear what causes it to subside for 10-15 minutes at a time. The pain/pressure is severe enough that she describes it as being similar to child . No recent fevers, chills, chest pain, SOB, nausea, vomiting, melena, BRBPR, dysuria, hematuria, rash or edema. Upon ED arrival vital signs are stable. Labs with stable CKD with Cr 1.13 and stable thrombocytopenia of 113. CT abdomen/pelvis with interval increase in wall thickening and some mucosal edema of therectum, consistent with proctitis. No bowel obstruction is seen. She was given Cefe, Flagyl, Vancomycin, and hydromorphone 0.5 mg x1 and then admitted to oncology for further management. I have independently reviewed and summarized prior pertinent medical records as above. Past Medical History: Diagnosis Date Arthritis Cancer [...] Laterality Date COLON SURGERY 10/03/2015 Right colectomy EXAMINATION UNDER ANESTHESIA 05/30/2020 Examination under anesthesia [...] PORT PLACEMENT CHEST >5 YEARS N/A 09/14/2021 MO REMOVAL OF TONSILS,<12 Y/O Tonsillectomy - (Added by TW Conv) MO TOTAL ABDOM HYSTERECTOMY Hysterectomy - (Added by TW Conv) Current Facility-Administered Medications on File Prior to Encounter Medication L-arginine 1.25%/L-lysine 1.25% infusion 1,000 mL Current Outpatient Medications on File Prior to Encounter Medication Sig ascorbic acid, vitamin C, 500 mg capsule Take 1 tablet by mouth patient safety attendant before breakfast cholecalciferol (VITAMIN D-3) 2,000 unit capsule Take 1 capsule (2,000 Units total) by mouth daily clotrimazole-betamethasone (LOTRISONE) cream clotrimazole-betamethasone 1 %-0.05 % topical cream APPLY EXTERNALLY TO ABDOMEN TWICE DAILY NEEDED coenzyme [id number] 100-5 mg-unit capsule Take by mouth patient safety attendant before breakfast denosumab (Xgeva) 120 mg/1.7 mL (70 mg/mL) injection Xgeva diphenoxylate-atropine (LOMOTIL) 2.5-0.025 mg per tablet Take 1 tablet by mouth 4 (four) times a day as needed for diarrhea DULoxetine DR (CYMBALTA) 30 mg capsule Take 1 capsule (30 mg total) by mouth daily fluticasone propionate (FLONASE) 50 mcg/actuation nasal spray fluticasone propionate 50 mcg/actuation nasal spray,suspension [id number] cabozantinib/placebo (/[id number]) 20 mg tablet Take 20 mg by mouth daily Takeon an empty stomach (no food for 2 hours before and 1 hour after each dose). Avoid [place]'s Wort,grapefruit products and [place] oranges while on treatment. 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 Briseno at office visit. ondansetron (ZOFRAN) 8 mg tablet Take 1 tablet (8 mg total) by mouth every 8 (eight) hours as needed for nausea or vomiting ostomy supplies misc Patient has colostomy and needs Cavilon 3M skin barrier film to manage. prochlorperazine (COMPAZINE) 10 mg tablet Take 1 tablet (10 mg total) by mouth every 6 (six) hours as needed for nausea simvastatin (ZOCOR) 20 mg tablet Take 20 mg by mouth nightly triamcinolone (KENALOG) 0.1 % ointment Apply to itchy rash on hands twice daily until improved [DISCONTINUED] cholestyramine (QUESTRAN) 4 gram packet Take 1 packet by mouth 3 (three) times a daywith meals (Patient not taking: Reported on 10/19/2021) [DISCONTINUED] oxybutynin (DITROPAN) 5 mg tablet Take 1 tablet (5 mg total) by mouth 2 (two) times a day for 14 days Allergies Allergen Reactions Morphine Blisters Ezetimibe-Simvastatin Muscle pain and Unknown Muscle weakness Ramipril Cough Social History Tobacco Use Smoking status: Never Smokeless tobacco: Never Substance and Sexual Activity Drug use: No Sexual activity: Defer Alcohol Use: Not on file Family History Problem Relation Age of Onset Breast cancer Sister 61 Adenocarcinoma of breast - (Added by TW Conv) Suicidality Father Family history of suicide - (Added by TW Conv) Other (old age) Mother Melanoma Daughter 30 Family History reviewed and non-contributory. Review of Systems All other systems were reviewed and are negative except for that which is listed in the History of Present Illness. Objective Vitals: 24hr Min/Max: Temp Min: 35.9 ??C (96.6 ??F) Max: 35.9 ??C (96.6 ??F) Pulse Min: 61 Max: 78 BP Min: 142/62 Max: 170/58 Resp Min: 14 Max: 25 SpO2 Min: 96 % Max: 100 % Most Recent Vitals: Vitals: 04/09/22 2300 BP: 142/62 Pulse: 61 Resp: 19 Temp: SpO2: 100% Intake/Output Summary (Last 24 hours) at 04/09/2022 2330 Last data filed at 04/09/2022 2243 Gross per 24 hour Intake 100 ml Output -- Net 100 ml Physical Exam Constitutional: NAD, well developed, well nourished Eyes: PERRL, EOMI, anicteric ENT: NCAT, oropharynx normal, MMM Lungs: Clear to auscultation in all lung york, unlabored Cardiovascular: RRR, normal S1 and S2, no murmurs, no JVD GI: Soft, non-tender, non-distended, bowel sounds +, colostomy in place Skin: No new rashes, lesions or bruises on visible skin Extremities: Normal without edema or cyanosis Neurologic: AOx4, CNII-XII intact, normal strength and sensation Psychiatric: Normal affect and mood I have reviewed the patient's vital signs. Lab/Diagnostic Review: Recent Results (from the past 36 hour(s)) CBC with auto differential Collection Time: 04/09/22 8:21 PM Result Value Ref Range WBC 5.1 3.8 - 9.9 K/cumm Hgb 12.2 11.9 - 15.5 g/dL Hct 35.7 35.6 - 45.5 % Plt 113 (L) 150 - 400 K/cumm MPV 10.2 9.1 - 12.3 fL RBC 3.65 (L) 3.90 - 5.20 M/cumm MCV 97.8 (H) 81.3 - 96.4 fL MCH 33.4 (H) 27.1 - 33.3 pg MCHC 34.2 32.3 - 35.7 g/dL RDW CV 13.6 11.1 - 14.9 % RDW SD 49.1 (H) 35.7 - 48.1 fL NRBC abs 0.00 0.00 - 0.01 K/cumm Comprehensive metabolic panel Collection Time: 04/09/22 8:21 PM Result Value Ref Range Sodium 137 135 - 145 mmol/L Potassium, pl 3.9 3.3 - 4.9 mmol/L Chloride 101 97 - 110 mmol/L CO2 24 22 - 32 mmol/L Anion gap 12 2 - 15 mmol/L BUN 13 8 - 25 mg/dL Creatinine 1.13 (H) 0.60 - 1.10 mg/dL Glucose 129 70 - 199 mg/dL Calcium 9.9 8.5 - 10.3 mg/dL Bilirubin, total 1.4 (H) 0.1 - 1.2 mg/dL Protein, pl 6.6 6.5 - 8.5 g/dL Albumin 4.1 3.5 - 5.0 g/dL Alk phos 73 40 - 130 Units/L ALT 25 7 - 45 Units/L AST 40 10 - 45 Units/L Differential, auto Collection Time: 04/09/22 8:21 PM Result Value Ref Range Neutrophil abs 3.9 1.7 - 6.5 K/cumm Imm gran abs 0.0 0.0 - 0.1 K/cumm Lymphocyte abs 0.5 (L) 0.8 - 3.3 K/cumm Monocyte abs 0.6 0.2 - 0.8 K/cumm Eosinophil abs 0.0 0.0 - 0.5 K/cumm Basophil abs 0.0 0.0 - 0.1 K/cumm Neutrophil pct 76.6 % Imm gran pct 0.2 % Lymphocyte pct 10.5 % Monocyte pct 11.7 % Eosinophil pct 0.6 % Basophil pct 0.4 % eGFR Collection Time: 04/09/22 8:21 PM Result Value Ref Range eGFR 51 (L) 90 - 130 mL/min/1.73 m2 POCT creatinine Collection Time: 04/09/22 8:28 PM Result Value Ref Range Creatinine POC 1.3 (H) 0.6 - 1.1 mg/dL COVID-19 Coronavirus RNA Nasopharyngeal Collection Time: 04/09/22 10:17 PM Specimen: Nasopharyngeal Result Value Ref Range COVID-19 RNA Negative Negative I have reviewed the laboratory results. Imaging Results: CT Abdomen Pelvis W Contrast Narrative: EXAMINATION: CT ABDOMEN PELVIS W CONTRAST HISTORY: [...] no acute fracture or suspicious osseous lesion. Impression: 1. Interval increased wall thickening and submucosal [...] diverticular disease. Dictated by: Lexie Adame M.D. I have independently reviewed and interpreted the CT abdomen/pelvis with the following findings: -increased wall thickening and stable metastatic disease documented in this encounter Plan of Treatment Scheduled Orders Name Type Priority Associated Diagnoses Orde r Schedule Urinalysis reflex to microscopic and culture Urine, clean voided Microbiology STAT Lab orders - as needed, STAT collection for 1 Occurrences starting 04/10/2022 C. difficile testing Stool Microbiology STAT Lab orders - as needed, STAT collection for 1 Occurrences starting 04/10/2022 documented as of this encounter Procedures Procedure Name Priority Date/Time Associated Diagnosis Comments URINALYSIS AND REFLEX TO MICROSCOPIC STAT 04/09/2022 11:29 PM CDT URINALYSIS, MICROSCOPIC ONLY STAT 04/09/2022 11:29 PM CDT COVID-19 CORONAVIRUS RNA Routine 04/09/2022 10:[address] ABDOMEN PELVIS W CONTRAST ED 04/09/2022 9:12 PM CDT POCT CREATININE - DEVICE Routine 04/09/2022 8:28 PM CDT EGFR STAT 04/09/2022 8:21 PM CDT DIFFERENTIAL AUTO STAT 04/09/2022 8:2 1 PM CDT CBC WITH AUTO DIFFERENTIAL STAT 04/09/2022 8:21 PM CDT BILIRUBIN, DIRECT STAT 04/09/2022 8:2 1 PM CDT COMPREHENSIVE METABOLIC PANEL STAT 04/09/2022 8:21 PM CDT documented in this encounter Results * (ABNORMAL) Urinalysis, microscopic only (04/09/2022 11:29 PM CDT) WBC, ur 21-50(A) 0 - 5 /HPF [facility] RBC, ur 3-5(A) 0 - 2 /HPF [facility] Epithelial cells, squamous, ur 1-5 0 - 5 /HPF [facility] Mucous, ur Present(A) [facility] Urine 04/09/2022 11:2 9 PM CDT 04/09/2022 11:35 PM CDT us Oswaldo Howard MD LAB URINE ORDERABLES Fi nal Result [facility] [place] [address] * (ABNORMAL) Urinalysis reflex to microscopic (04/09/2022 11:29 PM CDT) Color, ur Straw Yellow [facility] Clarity, ur Clear Clear [facility] Specific gravity, ur >1.042(H) 1.003 - 1.030 [facility] pH, urine 6.5 [facility] Protein, ur ql 1+(A) Negative [facility] Glucose, ur ql Negative Negative [facility] Ketones, ur Negative Negative [facility] Bilirubin, ur Negative Negative [facility] Blood, ur Trace(A) Negative [facility] Urobilinogen, ur <2.0 <2.0 mg/dL [facility] Nitrite, ur Negative Negative [facility] Leukocyte esterase, ur 1+(A) Negative [facility] UA reflex comment Reflex to microscopic UA will be performed. [facility] Urine 04/09/2022 11:2 9 PM CDT 04/09/2022 11:35 PM CDT Narrative [facility] - 04/09/2022 11:56 PM CDT ?? Urine pH is affected by diet, medications, systemic acid-base disturbances, and renal tubular function. ??pH may affect urinary stone formation. ??For example, urine pH below 6.0 may help reduce the tendency for calcium phosphate stones and pH greater than 6.0 may reduce the tendency for uric acid stone formation. Source: [email or web address]. Last revised 07-18-2017 us Oswaldo Howard MD LAB URINE ORDERABLES Fi nal Result [facility] Department [place] [address] * COVID-19 Coronavirus RNA Nasopharyngeal (04/09/2022 10:17 PM CDT) COVID-19 RNA Negative Negative [facility] Nasopharyngeal 04/09/2022 10 :17 PM CDT 04/09/2022 10:26 PM CDT Narrative [facility] - 04/09/2022 11:01 PM CDT Is the patient experiencing any symptoms consistent with COVID (eg. Fever, cough, shortness of breath)?->No What is the reason for testing?->Bed placement or semi-private room (Rapid) ??Interpretive data: Synonyms for this test include: PCR and NAAT . ??This test is performed using the [employer] Xpert Xpress plus assay. This is a real-time RT-PCR test intended for the qualitative detection of nucleic acid from the SARS-CoV-2. This assay has been reviewed by the FDA for Emergency Use Authorization (EUA). The performance characteristics have been verified by the performing laboratory. Results must be considered in the clinical context and a negative result does not rule out infection. Interpretive data last revised December 06, 2021. ??Interpretive data: Synonyms for this test include: PCR and NAAT . ??This test is performed using the [employer] Xpert Xpress plus assay. This is a real-time RT-PCR test intended for the qualitative detection of nucleic acid from the SARS-CoV-2. This assay has been reviewed by the FDA for Emergency Use Authorization (EUA). The performance characteristics have been verified by the performing laboratory. Results must be considered in the clinical context and a negative result does not rule out infection. Interpretive data last revised December 06, 2021. us Adonay Bethea MD LAB MICROBIOLOGY - GENERAL ORDERABLES Final Result Performing Organization Address City/State/[facility] Co de Phone Number [facility] Department [place] [address] * CT Abdomen Pelvis W Contrast (04/09/2022 9:12 PM CDT) Anatomical Region Laterality Modality Body N/A Computed Tomogra phy 04/09/2022 9:53 PM CDT Impressions 04/10/2022 8:14 AM CDT 1. Interval increased wall thickening and submucosal [...] it. Electronically signed by: Jeet Yan M.D. 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 Prior CT showed multiple hepatic metastases, hepatic serosal deposits, vaginal cuff metastases, nodules studding the sigmoid colon and small bowel, peritoneal nodules or retroperitoneal lymphadenopathy. Patient currently on clinical trial. TECHNIQUE: ??Transaxial computed tomographic images of the abdomen and pelvis ??were obtained with intravenous contrast according to the standard protocol after the uneventful administration of 93 mL Opti-Ray 350 intravenous contrast. COMPARISON: CT 03/21/2022 FINDINGS: ?? The lung bases are clear. Heart size [...] of the liver (series 2, image 61). ??There is no definite new suspicious liver lesion. [...] no acute fracture or suspicious osseous lesion. Procedure Note Short, Jeet Veras MD - 04/10/2022 EXAMINATION: CT ABDOMEN PELVIS W CONTRAST HISTORY: [...] no acute fracture or suspicious osseous lesion. IMPRESSION: 1. Interval increased wall thickening and submucosal [...] it. Electronically signed by: Jeet Yan M.D. Michelle Abernathy MD IMG CT PROCEDURES Final Resu lt * (ABNORMAL) POCT creatinine (04/09/2022 8:28 PM CDT) Pathologist [facility] Creatinine POC 1.3(H) 0.6 - 1.1 mg/dL [facility] Blood 04/09/2022 8:28 PM CDT 04/09/2022 8:28 PM CDT Notinfile Unknown LAB POCT ORDERABLES - DEVICE F inal Result Performing Organization Address City/[facility]/ZIP Co de Phone Number [facility] Department [place] [address] * Bilirubin, direct (04/09/2022 8:21 PM CDT) [facility] Bilirubin, direct 0.2 0.1 - 0.3 mg/dL [facility] Blood 04/09/2022 8:21 PM CDT 04/09/2022 8:32 PM CDT Eren Cr MD LAB BLOOD ORDERABLES Final Re sult Performing Organization Address City/[facility]/ZIP Co de Phone Number [facility] Department [place] [address] * (ABNORMAL) eGFR (04/09/2022 8:21 PM CDT) [facility] eGFR 51(L) 90 - 130 mL/min/1. 73 m2 [facility] Comment: Interpretive Data Reference Interval Normal [...] interpretive data was last reviewed 2021. Blood 04/09/2022 8:21 PM CDT 04/09/2022 8:32 PM CDT us Oswaldo Howard MD LAB BLOOD ORDERABLES Fi nal Result [facility] [place] [address] * (ABNORMAL) Differential, auto (04/09/2022 8:21 PM CDT) Neutrophil abs 3.9 1.7 - 6.5 K/cumm [facility] Imm gran abs 0.0 0.0 - 0.1 K/cumm [facility] Lymphocyte abs 0.5(L) 0.8 - 3.3 K/cumm [facility] Monocyte abs 0.6 0.2 - 0.8 K/cumm [facility] Eosinophil abs 0.0 0.0 - 0.5 K/cumm [facility] Basophil abs 0.0 0.0 - 0.1 K/cumm [facility] Neutrophil pct 76.6 % [facility] Comment: Interpretive Data Percent cell count reference ranges are not reported, since discordance with absolute values may lead to misinterpretation of CBC data. Current Interpretive Data was last revised on 2017. Imm gran pct 0.2 % [facility] Comment: Interpretive Data Percent cell count reference ranges are not reported, since discordance with absolute values may lead to misinterpretation of CBC data. Current Interpretive Data was last revised on 2017. Lymphocyte pct 10.5 % [facility] Comment: Interpretive Data Percent cell count reference ranges are not reported, since discordance with absolute values may lead to misinterpretation of CBC data. Current Interpretive Data was last revised on 2017. Monocyte pct 11.7 % [facility] Comment: Interpretive Data Percent cell count reference ranges are not reported, since discordance with absolute values may lead to misinterpretation of CBC data. Current Interpretive Data was last revised on 2017. Eosinophil pct 0.6 % [facility] Comment: Interpretive Data Percent cell count reference ranges are not reported, since discordance with absolute values may lead to misinterpretation of CBC data. Current Interpretive Data was last revised on 2017. Basophil pct 0.4 % [facility] Comment: Interpretive Data Percent cell count reference ranges are not reported, since discordance with absolute values may lead to misinterpretation of CBC data. Current Interpretive Data was last revised on 2017. Blood 04/09/2022 8:21 PM CDT 04/09/2022 8:32 PM CDT us Oswaldo Howard MD LAB BLOOD ORDERABLES Fi nal Result [facility] [place] [address] * (ABNORMAL) Comprehensive metabolic panel (04/09/2022 8:21 PM CDT) Sodium 137 135 - 145 mmol/L [facility] Potassium, pl 3.9 3.3 - 4.9 mmol/L [facility] Comment:Hemolyzed; Potassium value may be falsely elevated by as much as 0.3-0.5 mmol/L. Suggest redraw and reanalysis. Chloride 101 97 - 110 mmol/L [facility] CO2 24 22 - 32 mmol/L [facility] Anion gap 12 2 - 15 mmol/L [facility] BUN 13 8 - 25 mg/dL [facility] Creatinine 1.13(H) 0.60 - 1.10 mg/dL [facility] Glucose 129 70 - 199 mg/dL [facility] [...] 2017. Calcium 9.9 8.5 - 10.3 mg/dL [facility] Bilirubin, total 1.4(H) 0.1 - 1.2 mg/dL [facility] Protein, pl 6.6 6.5 - 8.5 g/dL [facility] Albumin 4.1 3.5 - 5.0 g/dL [facility] Alk phos 73 40 - 130 Units/L [facility] ALT 25 7 - 45 Units/L [facility] AST 40 10 - 45 Units/L [facility] Comment:Hemolyzed; result ma y be falsely elevated Blood 04/09/2022 8:21 PM CDT 04/09/2022 8:32 PM CDT us Oswaldo Howard MD LAB BLOOD ORDERABLES Fi nal Result [facility] [place] [address] * (ABNORMAL) CBC with auto differential (04/09/2022 8:21 PM CDT) WBC 5.1 3.8 - 9.9 K/cumm [facility] Hgb 12.2 11.9 - 15.5 g/dL [facility] Hct 35.7 35.6 - 45.5 % [facility] Plt 113(L) 150 - 400 K/cumm [facility] MPV 10.2 9.1 - 12.3 fL [facility] RBC 3.65(L) 3.90 - 5.20 M/cumm [facility] MCV 97.8(H) 81.3 - 96.4 fL [facility] MCH 33.4(H) 27.1 - 33.3 pg [facility] MCHC 34.2 32.3 - 35.7 g/dL [facility] RDW CV 13.6 11.1 - 14.9 % [facility] RDW SD 49.1(H) 35.7 - 48.1 fL [facility] NRBC abs 0.00 0.00 - 0.01 K/cumm [facility] Blood 04/09/2022 8:21 PM CDT 04/09/2022 8:32 PM CDT us Oswaldo Howard MD LAB BLOOD ORDERABLES Fi nal Result [facility] [place] [address] documented in this encounter Visit Diagnoses Diagnosis Proctitis- Primary Other specified disorder of rectum and anus Primary malignant neuroendocrine tumor of ileum (HCC) Rectal pain Anal or rectal pain Proctitis Other specified disorder of rectum and anus Neuroendocrine carcinoma (CMS/HCC) (HCC) Other malignant neoplasm of unspecified site Benign essential hypertension Essential hypertension, benign Stage 3b chronic kidney disease (HCC) 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) Colostomy status Thrombocytopenia (HCC) Unspecified thrombocytopenia documented in this encounter Admitting Diagnoses Diagnosis Rectal pain Anal or rectal pain documented in this encounter Administered Medications Inactive Administered Medications - up to 3 most recent administrations Medication Order MAR Action Action Date Dose Rate Site cefepime (MAXIPIME) 2,000 mg/20 mL in sterile water (premix) 2,000 mg 2,000 mg, intravenous, at 240 mL/hr, Administer over 5 Minutes, Every 24 hours scheduled, First dose on Sat04/09/22 at 2206, Indications: Abdominal/Pelvic InfectionIndications:Abdomi nal/Pelvic Infection New Bag 04/09/2022 10:10 PM CDT 2,000 mg 240 mL/hr heparin 10 unit/mL flush 20-50 Units 20-50 Units (2-5 mL), intra-catheter, As needed, line care, with each use, Starting on Sat04/10/22 at 1033, Do not use with Groshong catheter. Do not use with peripheral IV Flush volume based on line type, size, and protocol., Indications: Maintain Patency of Indwelling Vascular CatheterIndications:Maintai n Patency of Indwelling Vascular Catheter Given 04/10/2022 11:04 AM CDT 50 Units heparin 100 unit/mL injection 500 Units 500 Units (5 mL), intra-catheter, Once, On Sat04/10/22 at 1645, For 1 dose Given 04/10/2022 4:17 PM CDT 500 Units HYDROmorphone (DILAUDID) injection 0.5 mg 0.5 mg, intravenous, Administer over 2 Minutes, Once, On Sat04/09/22 at 1949, For 1 dose, Indications: PainIndications:Pain Given 04/09/2022 8:47 PM CDT 0.5 mg HYDROmorphone (DILAUDID) injection 0.5 mg 0.5 mg, intravenous, Administer over 2 Minutes, Every 4 hours PRN, 1st line for pain, Starting on Sat04/09/22 at 2257, Indications: PainIndications:Pain Given 04/10/2022 10:12 AM CDT 0.5 mg Given 04/10/2022 4:48 AM CDT 0.5 mg Given 04/09/2022 11:13 PM CDT 0.5 mg ioversoL (OPTIRAY 350) syringe 100 mL 100 mL, intravenous, Once in imaging, contrast, Starting on Sat04/09/22 at 2109, For 1 dose Contrast Given 04/09/2022 9:12 PM CDT 93 mL Lactated Ringer's (LR) infusion 75 mL/hr, intravenous, Continuous, Starting on Sat04/10/22 at 1230, For 24 hours, New Bag 04/10/2022 12:21 PM CDT 75 mL/hr 75 mL/hr metroNIDAZOLE (FLAGYL) 500 mg/100 mL in sodium chloride (premix) 500 mg 500 mg, intravenous, at 200 mL/hr, Administer over 30 Minutes, Every 12 hours scheduled, First dose on Sat04/09/22 at 2205, Room temperature only, Indications: Abdominal/Pelvic InfectionIndications:Abdomina l/Pelvic Infection New Bag 04/09/2022 10:10 PM CDT 500 mg 200 mL/hr ondansetron (ZOFRAN) injection 8 mg 8 mg, intravenous, Administer over 2 Minutes, Every 8 hours PRN, nausea, vomiting, if not tolerating PO, Starting on Sat04/10/22 at 1033 ondansetron (ZOFRAN) tablet 8 mg 8 mg, oral, Every 8 hours PRN, nausea, vomiting, Starting on Sat04/10/22 at 1033, May administer IV if not tolerating oral. vancomycin 1,250 mg/262.5 mL in sodium chloride 0.9% (premix) 1,250 mg 1,250 mg (rounded from 1,129.5 mg = 15 mg/kg ? 75.3 kg), intravenous, Administer over 60 Minutes, Every 24 hours, First dose on Sat04/09/22 at 2205, Indications: Abdominal/Pelvic InfectionIndications:Abdomina l/Pelvic Infection New Bag 04/09/2022 10:42 PM CDT 1,250 mg documented in this encounter Discontinued Medications Medication Sig Discontinue Reason Start Date End Da te cholestyramine (QUESTRAN) 4 gram packet Take 1 packet by mouth 3 (three) times a day with meals Therapy completed 09/04/2019 04/09/2022 oxybutynin (DITROPAN) 5 mg tabletIndications:Bladder Hyperactivity Take 1 tablet (5 mg total) by mouth 2 (two) times a day for 14 days Therapy completed 04/24/2019 04/09/2022 documented as of this encounter Active and Recently Administered Medications Times are shown in CDT. Scheduled Medication Order 04/08/2022 04/09/2022 04/10/2022 alteplase (CATHFLO) 1 mg/mL syringe (premix) 1 mg 1 mg, intra-catheter, Once, On Sat04/10/22 at 1315, For 1 dose, 60 to 120 minute dwell time. Refrigerate, Indications: Catheter clearance 1315 (Due) cefepime (MAXIPIME) 2,000 mg/20 mL in sterile water (premix) 2,000 mg (CANCELED) 2,000 mg, intravenous, at 240 mL/hr, Administer over 5 Minutes, Every 24 hours scheduled, First dose on Sat04/09/22 at 2206, Indications: Abdominal/Pelvic Infection 2209 (New Bag - Provider: Delfina Morris RN)2215 (Stopped - Provider: Delfina Morris RN) enoxaparin (LOVENOX) syringe 40 mg 40 mg, subcutaneous, Daily (for enoxaparin), First dose on Sat04/10/22 at 2100, Indications: Deep Vein Thrombosis Prevention heparin 10 unit/mL flush 50 Units 50 Units (5 mL), intra-catheter, 2 times daily, First dose on Sat04/10/22 at 1600, Do not use with Groshong catheter. Do not use with peripheral IV., Indications: Maintain Patency of Indwelling Vascular Catheter 1600 (Due) heparin 100 unit/mL injection 500 Units (COMPLETED) 500 Units (5 mL), intra-catheter, Once, On Sat04/10/22 at 1645, For 1 dose 1617 (Given - Provid er: Zoraida Carey RN) HYDROmorphone (DILAUDID) injection 0.5 mg (COMPLETED) 0.5 mg, intravenous, Administer over 2 Minutes, Once, On Sat04/09/22 at 1949, For 1 dose, Indications: Pain 2046 (Given - Provider: Suma Varela RN - Comment: 2048) metroNIDAZOLE (FLAGYL) 500 mg/100 mL in sodium chloride (premix) 500 mg (CANCELED) 500 mg, intravenous, at 200 mL/hr, Administer over 30 Minutes, Every 12 hours scheduled, First dose on Sat04/09/22 at 2205, Room temperature only, Indications: Abdominal/Pelvic Infection 2209 (New Bag - Provider: Delfina Morris RN)2242 (Stopped - Provider: Delfina Morris RN) 0900 (Due) sodium chloride 0.9% flush 5-10 mL 5-10 mL, intra-catheter, Every 12 hours scheduled, First dose on Sat04/10/22 at 1600, Flush volume based on line type, size, and protocol. 1600 (Due) vancomycin 1,250 mg/262.5 mL in sodium chloride 0.9% (premix) 1,250 mg (CANCELED) 1,250 mg (rounded from 1,129.5 mg = 15 mg/kg ? 75.3 kg), intravenous, Administer over 60 Minutes, Every 24 hours, First dose on Sat04/09/22 at 2205, Indications: Abdominal/Pelvic Infection 2242 (New Bag - Provider: Delfina Morris RN) 0008 (Stopped - Provider: Delfina Morris RN) Continuous Medication Order 04/08/2022 04/09/2022 04/10/2022 Lactated Ringer's (LR) infusion 75 mL/hr, intravenous, Continuous, Starting on Sat04/10/22 at 1230, For 24 hours, 1221 (New Bag - Prov ider: Laura Hidalgo RN)2049 (Due: Stopped) PRN Medication Order 04/08/2022 04/09/2022 04/10/2022 camphor-menthoL (SARNA) 0.5-0.5 % lotion topical, Every 2 hours PRN, itching, Starting on Sat04/10/22 at 1033, Apply to affected area: other, Indications: Pruritus of Skin heparin 10 unit/mL flush 20-50 Units 20-50 Units (2-5 mL), intra-catheter, As needed, line care, with each use, Starting on Sat04/10/22 at 1033, Do not use with Groshong catheter. Do not use with peripheral IV Flush volume based on line type, size, and protocol., Indications: Maintain Patency of Indwelling Vascular Catheter 1104 (Given - Provider: Laura Hidalgo, [place]) HYDROmorphone (DILAUDID) injection 0.5 mg 0.5 mg, intravenous, Administer over 2 Minutes, Every 4 hours PRN, 1st line for pain, Starting on Sat04/09/22 at 2257, Indications: Pain 2313 (Given - Provider: Delfina Morris, RN) 0448 (Given - Provider: Deyanira Mistry, [place])1012 (Given - Provider: Renay De Gu[place], [place]) ioversoL (OPTIRAY 350) syringe 100 mL (COMPLETED) 100 mL, intravenous, Once in imaging, contrast, Starting on Sat04/09/22 at 2109, For 1 dose 2111 (Contrast Given - Provider: Vivian Portillo RT) magnesium sulfate 4 g/100 mL in water (premix) 4 g 4 g, intravenous, Administer over 90 Minutes, Every 4 hours PRN, magnesium replacement, Starting on Sat04/10/22 at 1033, For magnesium level of 1.2-1.5 mg/dL, Indications: hypomagnesemia magnesium sulfate 6 g in sodium chloride 0.9% 250 mL IVPB 6 g, intravenous, at 131 mL/hr, Administer over 120 Minutes, Every 4 hours PRN, magnesium replacement, Starting on Sat04/10/22 at 1033, For magnesium level less than 1.2 mg/dL and call/notify provider., Indications: hypomagnesemia ondansetron (ZOFRAN) injection 8 mg(Linked Group 1) 8 mg, intravenous, Administer over 2 Minutes, Every 8 hours PRN, nausea, vomiting, if not tolerating PO, Starting on Sat04/10/22 at 1033 ondansetron (ZOFRAN) tablet 8 mg(Linked Group 1) 8 mg, oral, Every 8 hours PRN, nausea, vomiting, Starting on Sat04/10/22 at 1033, May administer IV if not tolerating oral. polyvinyl alcohol-povidone (REFRESH CLASSIC) 1.4-0.6 % ophthalmic solution 2 drop 2 drop, each eye, Every 4 hours PRN, dry eyes, Starting on Sat04/10/22 at 1033, Indications: Dry Eye potassium chloride ER (KLOR-CON) extended release tablet 40 mEq 40 mEq, oral, Every 2 hours PRN, potassium replacement, Starting on Sat04/10/22 at 1033, HOLD dose and contact prescriber/provider if any [...] mmol/L, give 40 mEq x 1 dose. Do not crush, chew, cut, dissolve, open or otherwise manipulate tablet/capsule., Indications: hypokalemia sodium chloride 0.9% flush 10-20 mL 10-20 mL, intra-catheter, As needed, line care, with each use, Starting on Sat04/10/22 at 1033, Flush volume based on line type, size, and protocol. sodium chloride 0.9% infusion 30 mL/hr, intravenous, Continuous PRN, KVO for medication administrations, Starting on Sat04/10/22 at 1033 sodium phosphate - potassium phosphate (K-PHOS NEUTRAL) tablet 500 mg 500 mg, oral, Daily PRN, phosphorus level 1.5-1.9 mg/dL, Starting on Sat04/10/22 at 1033, Contact provider for phosphorus level less than 1.5 mg/dL. Each tablet contains elemental phosphorus 250 mg (8 mmol), potassium 45 mg (1.1 mEq), and sodium 298 mg (13 mEq)., Indications: hypophosphatemia Linked Groups Order Group 1: ondansetron (ZOFRAN) tablet 8 mgJump to med 8 mg, oral, Every 8 hours PRN, nausea, vomiting, Starting on Sat04/10/22 at 1033, May administer IV if not tolerating oral. Or ondansetron (ZOFRAN) injection 8 mgJump to med 8 mg, intravenous, Administer over 2 Minutes, Every 8 hours PRN, nausea, vomiting, if not tolerating PO, Starting on Sat04/10/22 at 1033 documented in this encounter Orders Medications Ordered That Brett ht Not Have Been Administered Count Last Ordered Date First Ordered Date alteplase (CATHFLO) 1 mg/mL syringe (premix) 1 mg 1 04/10/2022 alteplase (CATHFLO) 1 mg/mL syringe (premix) 2 mg 1 04/10/2022 camphor-menthoL (SARNA) 0.5-0.5 % lotion 1 04/10/2022 enoxaparin (LOVENOX) syringe 40 mg 1 2021 heparin 10 unit/mL flush 50 Units 1 022 magnesium sulfate 4 g/100 mL in water (premix) 4 g 1 04/10/2022 magnesium sulfate 6 g in sod ium chloride 0.9% 250 mL IVPB 1 04/10/2022 ondansetron (ZOFRAN) injection 8 mg 1 04/10 ondansetron (ZOFRAN) tablet 8 mg 1 04/10/20 polyvinyl alcohol-povidone ( REFRESH CLASSIC) 1.4-0.6 % ophthalmic solution 2 drop 1 04/10/2022 potassium chloride ER (KLOR- CON) extended release tablet 40 mEq 1 04/10/2022 sodium chloride 0.9% flush 10-20 mL 1 04/10 sodium chloride 0.9% flush 5-10 mL 1 2021 sodium chloride 0.9% infusion 1 04/10/2022 sodium phosphate - potassium phosphate (K-PHOS NEUTRAL) tablet 500 mg 1 04/10/2022 Lab Orders Without Results Count Last Ordered D ate First Ordered Date BILIRUBIN, DIRECT 2 04/10/2022 POCT CREATININE - DEVICE 1 04/09/2022 Nursing Count Last Ordered Date First Orde red Date MEASURE HEIGHT AND LENGTH 1 04/10/2022 WEIGH PATIENT 1 04/10/2022 Consult Count Last Ordered Date First Orde red Date IP CONSULT [facility] 1 022 IV Count Last Ordered Date First Orde red Date SALINE LOCK IV 1 04/09/2022 Admission Count Last Ordered Date First Orde red Date ADMIT TO INPATIENT 1 04/09/2022 Discharge Count Last Ordered Date First Orde red Date DISCHARGE PATIENT 1 04/10/2022 documented in this encounter Care Teams Test Kitchen Home Economist Relationship Specialty Start Date End Date Julio César Briseno MD PCP - General 10/01/16 Eren Cr MD Referring Physician Medical Oncology 11/25/18 Yohana Bowen MD Radiation Oncologist Radiation Oncology 11/25/18 documented as of this encounter
--- OUTSIDE RECORDS SUMMARY | 2024-06-25 22:19 | XMS_ITS | Encounter Summary ---
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) (Primary Dx); Hypophosphatemia; Colostomy complication, unspecified (HCC) Social History Tobacco [...] file 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 Gender Identity Not on file Sexual Orientation Straight 02/19/2021 9: 29 AM CDT Occupation Industry Job Start Date Job End Date retired Not on file Not on file Not on file documented as of this encounter Last Filed Vital Signs Vital Sign Reading Time Taken Comments Blood Pressure 150/70 04/05/2022 1:27 PM CDT Pulse 75 04/05/2022 1:27 PM CDT Temperature 37 ??C (98.6 ??F) 04/05/2022 1:27 PM CDT Respiratory Rate 17 04/05/2022 1:27 PM CDT Oxygen Saturation 96% 04/05/2022 1:27 PM CDT Inhaled Oxygen Concentration - - Weight 76.4 kg (168 lb 6.4 oz) 04/05/2022 1:27 P M CDT Height - - Body Mass Index 28.86 03/07/2022 2:27 PM CDT documented in this encounter Nursing Notes * Babs Stokes, RN - 04/05/2022 1:30 PM CDT Oncology Nursing Note [facility] La Chung is a 71 y.o. female who presents for treatment of NS 1 liter Pre-treatment Nursing Assessment Nursing Assessment Appetite: Good (gets lightheaded and dizzy upon standing; tries to hydrate; getting fluids today) Diarrhea: Yes (large output from ostomy) Existing Patients: Any falls since your last visit?: No Fatigue: Occassional Mouth Sores: No Nausea/Vomiting: Yes (occasional) Neurological symptoms: No Pain: No Peripheral Neuropathy: No Shortness of Breath?: No Lungs auscultated PRN: No Pt is on oxygen?: No Skin Condition/Temp: Warm, Dry, No swelling Swelling: No Additional Notes: BP: 150/70 Temp: 37 ??C (98.6 ??F) Pulse: 75 Resp: 17 SpO2: 96 % Weight: 76.4 kg (168 lb 6.4 oz) Pain Score: 0 - No pain Treatment Patient: met treatment parameters Pre blood return: Brisk after alteplase instilled La Chung tolerated treatment well. Patient was frequently observed and monitored throughout the administration of their treatment. Additional Notes: prn anti-nausea medication available if needed Post blood return: Brisk IV access post [...] Malignant neoplasm metastatic to liver (HCC)- Primary Hypophosphatemia Disorders of phosphorus metabolism Colostomy complication, unspecified (HCC) documented in this encounter Administered Medications Inactive Administered Medications - up to 3 most recent administrations Medication Order MAR Action Action Date Dose Rate Site alteplase (CATHFLO ACTIVASE) injection 1 mg 1 mg, intra-catheter, Once, On Lydia 04/05/22 at 1430, For 1 dose, 60 to 120 minute dwell time. Reconstitute 2 mg vial with 2.2 mL SWFI. Resulting solution is ~1 mg/mL. DO NOT SHAKE., Indications: Colorectal CancerIndications:Colorecta l Cancer Given 04/05/2022 1:50 PM CDT 1 mg sodium chloride 0.9% bolus 1,000 mL 1,000 mL, intravenous, at 500 mL/hr, Administer over 2 Hours, Once, On Lydia 04/05/22 at 1430, For 1 doseIndications:Hypophospha temia New Bag 04/05/2022 2:45 PM CDT 1,000 mL 670 mL/hr documented in this encounter Orders Medications Ordered That Brett ht Not Have Been Administered Count Last Ordered Date First Ordered Date heparin 100 unit/mL flush 500 Units 1 04/05 ondansetron (ZOFRAN) injection 8 mg 1 04/05 Appointment Requests Count Last Ordered Date Fi rst Ordered Date ONCBCN INFUSION APPT REQUEST 1 04/05/2022 documented in this encounter Care Teams Remote Control Mirror Installer Relationship Specialty Start Date End Date Julio César Briseno MD PCP - General 10/01/16 Eren Cr MD Referring Physician Medical Oncology 11/25/18 Yohana Bowen MD Radiation Oncologist Radiation Oncology 11/25/18 documented as of this encounter
--- OUTSIDE RECORDS SUMMARY | 2024-06-25 22:19 | XMS_ITS | Encounter Summary ---
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 Avoid Colerain's Wort, grapefruit products and [place] oranges while on treatment. 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) EGFR STAT 04/19/2022 10:00 AM CDT Neuro-endocrine carcinoma (CMS/HCC) (HCC) DIFFERENTIAL AUTO STAT 04/19/2022 10: 00 AM CDT Neuro-endocrine carcinoma (CMS/HCC) (HCC) CHROMOGRANIN A Routine 04/19/2022 10:00 AM CDT 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) CBC WITH AUTO DIFFERENTIAL STAT 04/19/2022 10:00 AM CDT Neuro-endocrine carcinoma (CMS/HCC) (HCC) VITAMIN D 25 HYDROXY Routine 04/19/2022 10:00 AM CDT 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) TSH Routine 04/19/2022 10:00 AM CDT Neuro-endocrine carcinoma (CMS/HCC) (HCC) PHOSPHORUS Routine 04/19/2022 10:00 AM CDT 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) MAGNESIUM STAT 04/19/2022 10:00 AM CDT Neuro-endocrine carcinoma (CMS/HCC) (HCC) LIPID PANEL Routine 04/19/2022 10:00 AM CDT 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) COMPREHENSIVE METABOLIC PANEL STAT 04/19/2022 10:00 AM CDT Neuro-endocrine carcinoma (CMS/HCC) (HCC) documented in this encounter Results * Urinalysis reflex to microscopic and culture Urine, clean voided (04/19/2022 2:48 PM CDT) Color, ur Yellow Yellow [facility] Clarity, ur Clear Clear [facility] Specific gravity, ur 1.018 1.003 - 1.030 [facility] pH, urine 5.5 [facility] Protein, ur ql Negative Negative [facility] Glucose, ur ql Negative Negative [facility] Ketones, ur Negative Negative [facility] Bilirubin, ur Negative Negative [facility] Blood, ur Negative Negative [facility] Urobilinogen, ur <2.0 <2.0 mg/dL [facility] Nitrite, ur Negative Negative [facility] Leukocyte esterase, ur Negative Negative [facility] UA reflex comment Reflex conditions for microscopic UA and culture not met. [facility] Urine, clean voided 04/19/2022 2:48 PM CDT 04/19/2022 7:09 PM CDT Narrative [facility] - 04/19/2022 7:17 PM CDT ?? Urine pH is affected by diet, medications, systemic acid-base disturbances, and renal tubular function. ??pH may affect urinary stone formation. ??For example, urine pH below 6.0 may help reduce the tendency for calcium phosphate stones and pH greater than 6.0 may reduce the tendency for uric acid stone formation. Source: [employer]. Last revised 07-18-2017 us Eren Cr MD LAB MICROBIOLOGY - GENERAL OR DERABLES Final Result [facility] Department [place] [address] * (ABNORMAL) eGFR (04/19/2022 10:00 AM CDT) [facility] eGFR 47(L) 90 - 130 mL/min/1. 73 m2 [facility] Comment: Interpretive Data Reference Interval Normal [...] interpretive data was last reviewed 2021. Blood 04/19/2022 10:0 0 AM CDT 04/19/2022 10:03 AM CDT us Eren Cr MD LAB BLOOD ORDERABLES Final Re sult [facility] Department [place] [address] * Differential, auto (04/19/2022 10:00 AM CDT) Neutrophil abs 3.2 1.7 - 6.5 K/cumm [facility] Comment:Testing performed by : [facility], [address] [facility] [address] Imm gran abs 0.0 0.0 - 0.1 K/cumm [facility] Lymphocyte abs 0.8 0.8 - 3.3 K/cumm [facility] Monocyte abs 0.4 0.2 - 0.8 K/cumm [facility] Eosinophil abs 0.1 0.0 - 0.5 K/cumm [facility] Basophil abs 0.0 0.0 - 0.1 K/cumm [facility] Neutrophil pct 68.9 % [facility] Comment: Interpretive Data Percent cell count reference ranges are not reported, since discordance with absolute values may lead to misinterpretation of CBC data. Current Interpretive Data was last revised on 2017. Imm gran pct 0.7 % [facility] Comment: Interpretive Data Percent cell count reference ranges are not reported, since discordance with absolute values may lead to misinterpretation of CBC data. Current Interpretive Data was last revised on 2017. Lymphocyte pct 17.2 % [facility] Comment: Interpretive Data Percent cell count reference ranges are not reported, since discordance with absolute values may lead to misinterpretation of CBC data. Current Interpretive Data was last revised on 2017. Monocyte pct 9.4 % [facility] Comment: Interpretive Data Percent cell count reference ranges are not reported, since discordance with absolute values may lead to misinterpretation of CBC data. Current Interpretive Data was last revised on 2017. Eosinophil pct 3.1 % [facility] Comment: Interpretive Data Percent cell count reference ranges are not reported, since discordance with absolute values may lead to misinterpretation of CBC data. Current Interpretive Data was last revised on 2017. Basophil pct 0.7 % [facility] Comment: Interpretive Data Percent cell count reference ranges are not reported, since discordance with absolute values may lead to misinterpretation of CBC data. Current Interpretive Data was last revised on 2017. Blood 04/19/2022 10:0 0 AM CDT 04/19/2022 10:03 AM CDT Eren Cr MD LAB BLOOD ORDERABLES Final Re sult Performing Organization Address City/[facility]/ZIP Co de Phone Number [facility] [place] [address] * (ABNORMAL) CBC with auto differential (04/19/2022 10:00 AM CDT) WBC 4.6 3.8 - 9.9 K/cumm [facility] Comment:Testing performed by : [address] [address] Hgb 11.7(L) 11.9 - 15.5 g/dL [facility] Comment:Testing performed by : [address] [address] Hct 35.5(L) 35.6 - 45.5 % [facility] Comment:Testing performed by : [address] [address] Plt 125(L) 150 - 400 K/cumm [facility] Comment:Testing performed by : [address] [address] MPV 10.6 9.1 - 12.3 fL [facility] RBC 3.54(L) 3.90 - 5.20 M/cumm [facility] MCV 100.3(H) 81.3 - 96.4 fL [facility] MCH 33.1 27.1 - 33.3 pg [facility] MCHC 33.0 32.3 - 35.7 g/dL [facility] RDW CV 14.1 11.1 - 14.9 % [facility] RDW SD 50.8(H) 35.7 - 48.1 fL [facility] NRBC abs 0.00 0.00 - 0.01 K/cumm [facility] Blood 04/19/2022 10:0 0 AM CDT 04/19/2022 10:03 AM CDT Eren Cr MD LAB BLOOD ORDERABLES Final Re sult Performing Organization Address City/[facility]/ZIP Co de Phone Number [facility] Department [place] [address] * (ABNORMAL) Comprehensive metabolic panel (04/19/2022 10:00 AM CDT) Sodium 140 135 - 145 mmol/L [facility] Comment:Testing performed by : [facility], [address] [place] [address] Potassium, pl 3.8 3.3 - 4.9 mmol/L [facility] Chloride 108 97 - 110 mmol/L [facility] CO2 26 22 - 32 mmol/L [facility] Anion gap 6 2 - 15 mmol/L [facility] BUN 15 8 - 25 mg/dL [facility] Creatinine 1.22(H) 0.60 - 1.10 mg/dL [facility] Glucose 116 70 - 199 mg/dL [facility] Comment: Interpretive Data Fasting glucose >/= [...] interpretive data was last revised 2017. Calcium 10.6(H) 8.5 - 10.3 mg/dL [facility] Bilirubin, total 0.4 0.1 - 1.2 mg/dL [facility] Protein, pl 6.3(L) 6.5 - 8.5 g/dL [facility] Albumin 4.0 3.5 - 5.0 g/dL [facility] Alk phos 51 40 - 130 Units/L [facility] ALT 21 7 - 45 Units/L [facility] AST 28 10 - 45 Units/L [facility] Blood 04/19/2022 10:0 0 AM CDT 04/19/2022 10:03 AM CDT us Eren Cr MD LAB BLOOD ORDERABLES Final Re sult Performing Organization Address [facility] [place] [address] * Magnesium (04/19/2022 10:00 AM CDT) Magnesium 1.6 1.4 - 2.5 mg/dL [facility] Comment:Testing performed by : [facility], [address] [place] [address] Blood 04/19/2022 10:0 0 AM CDT 04/19/2022 10:03 AM CDT Eren Cr MD LAB BLOOD ORDERABLES Final Re sult Performing Organization Address [facility] [place] [address] * (ABNORMAL) TSH (04/19/2022 10:00 AM CDT) Thyroid Stimulating Hormone 7.34(H) 0.30 - 4.20 mcIUnit/mL [facility] Blood 04/19/2022 10:0 0 AM CDT 04/19/2022 11:43 AM CDT Eren Cr MD LAB BLOOD ORDERABLES Final Re sult Performing Organization Address [facility] [place] [address] * (ABNORMAL) Lipid panel (04/19/2022 10:00 AM CDT) Cholesterol 121 30 - 199 mg/dL [facility] Comment: Interpretive Data Ages < or [...] Data was last revised on 2018. Triglycerides 185(H) <=149 mg/dL [facility] Comment: Interpretive Data Ages < or [...] revised on 2018. HDL 56 >=40 mg/dL [facility] Comment: Interpretive Data Ages < or [...] was last revised on 2018. LDL, calculated 28 <=129 mg/dL [facility] Comment: Interpretive Data Ages < [...] was last revised on 2018. Non-HDL Cholesterol 65 mg/dL [facility] Comment: Interpretive Data Ages < [...] 2018. Chol/HDL ratio 2 [facility] Blood 04/19/2022 10:0 0 AM CDT 04/19/2022 11:43 AM CDT us Eren Cr MD LAB BLOOD ORDERABLES Final Re sult Performing Organization Address City/State/[facility] Co de Phone Number [facility] [place] [address] * Phosphorus (04/19/2022 10:00 AM CDT) Pathologist [facility] Phosphorus, pl 2.8 2.3 - 4.5 mg/dL [facility] Comment:Testing performed by : [facility], [address] [place] [address] Blood 04/19/2022 10:0 0 AM CDT 04/19/2022 10:03 AM CDT Eren Cr MD LAB BLOOD ORDERABLES Final Re sult Performing Organization Address [facility] Co de Phone Number [facility] [place] [address] * (ABNORMAL) Vitamin D 25 hydroxy (04/19/2022 10:00 AM CDT) [facility] Vitamin D 25-OH 23(L) 30 - 80 ng/mL [facility] Blood 04/19/2022 10:0 0 AM CDT 04/19/2022 11:43 AM CDT Eren Cr MD LAB BLOOD ORDERABLES Final Re sult Performing Organization Address [facility] Co de Phone Number [facility] Department [place] [address] * (ABNORMAL) Chromogranin A (04/19/2022 10:00 AM CDT) [facility] Chromogranin A 1141(H) <93 ng/mL [facility] Comment: Impaired renal or hepatic function or treatment with proton pump inhibitors may result in artifactual elevations of Chromogranin A. ADDITIONAL INFORMATION This test was developed and its performance characteristics determined by [facility] in a manner consistent with [...] a homogeneous time-resolved immunofluorescent assay manufactured by [employer] and performed on the [employer] Compact Plus. ? Values obtained with different assay methods or kits may be different and cannot be used interchangeably. ? Test results cannot be interpreted as absolute evidence for the presence or absence of malignant disease. Test Performed by: [facility] [id number] [place] [address] Plate Preparer: Immanuel Novak M.D. Ph.D.; CLIA# [id number] Blood 04/19/2022 10:0 0 AM CDT 04/19/2022 11:51 AM CDT Eren Cr MD LAB BLOOD ORDERABLES Final Re sult [facility] [place] [address] documented in this encounter Visit Diagnoses Diagnosis Neuroendocrine carcinoma (HCC) Other malignant neoplasm of unspecified site Malignant neoplasm metastatic to liver (HCC) Neuro-endocrine carcinoma (HCC) Other malignant neoplasm of unspecified site documented in this encounter Care Teams In Store Marketing Representative Relationship Specialty Start Date End Date Julio César Briseno MD PCP - General 10/01/16 Eren Cr MD Referring Physician Medical Oncology 11/25/18 Yohana Bowen MD Radiation Oncologist Radiation Oncology 11/25/18 documented as of this encounter
--- OUTSIDE RECORDS SUMMARY | 2024-06-25 22:19 | XMS_ITS | Encounter Summary ---
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 female who presents for treatment of IVF and octreotide. No mag given and xgeva held r/t low phos. Pt c/o nausea near end of IVF and iv zofran given. Asked team to call in another antiemetic for pt. supportive at bedside. Pre-treatment Nursing Assessment Nursing Assessment Appetite: Good Diarrhea: No Constipation: No Existing Patients: Any falls since your last visit?: No Fatigue: Occassional Mouth Sores: No Nausea/Vomiting: Yes (today while here; team aware and given iv zofran as ordered) Neurological symptoms: No LOC: Alert, Awake Orientation: Oriented x4 Pain: No Peripheral Neuropathy: No Pt states has potential to be ?: N/A Shortness of Breath?: No Lungs auscultated PRN: No Pt is on oxygen?: No Skin Condition/Temp: Warm, Dry Oral Mucosa Grade: Normal (0) Swelling: No Additional Notes: BP: 143/78 Temp: 36.3 ??C (97.3 ??F) Temp src: Temporal Pulse: 99 Resp: 16 SpO2: 99 % Weight: 76.7 kg (169 lb 3.2 oz) Treatment Patient was frequently observed and monitored throughout [...] Dehydration Malignant neoplasm metastatic to liver (HCC) Bone [...] mg 30 mg, intramuscular, Once, On Lydia 03/22/22 at 1230, For 1 dose, Refrigerate. For IM intragluteal administration only- alternate gluteal sites. Shake.Indications:Corry gnant neoplasm metastatic to liver (HCC),Neuroendocrine carcinoma (HCC) Given 03/22/2022 2:24 PM CDT 30 mg Left Ventrogluteal ondansetron (ZOFRAN) injection 8 mg 8 mg, intravenous, Administer over 2 Minutes, Once, On Lydia 03/22/22 at 1500, For 1 doseIndications:Bone metastasis,Neuro-endoc rine carcinoma (HCC) Given 03/22/2022 2:15 PM CDT 8 mg sodium chloride 0.9% bolus 1,000 mL 1,000 mL, intravenous, at 500 mL/hr, Administer over 2 Hours, Once, On Lydia 03/22/22 at 1230, For 1 doseIndications:Dehydr ation,Neuroendocrine carcinoma (HCC) New Bag 03/22/2022 12:03 PM CDT 1,000 mL 500 mL/hr documented in this encounter Orders Medications Ordered That Brett ht Not Have Been Administered Count Last Ordered Date First Ordered Date sodium chloride 0.9% bolus 1,000 mL 1 03/22 Nursing Count Last Ordered Date First Orde red Date ONCBCN NURSING COMMUNICATION [id number] 1 03/22 Appointment Requests Count Last Ordered Date Fi rst Ordered Date ONCBCN INFUSION APPT REQUEST 1 03/22/2022 documented in this encounter Care Teams Jack Frame Tender Relationship Specialty Start Date End Date Julio César Briseno MD PCP - General 10/01/16 Eren Cr MD Referring Physician Medical Oncology 11/25/18 Yohana Bowen MD Radiation Oncologist Radiation Oncology 11/25/18 documented as of this encounter
--- OUTSIDE RECORDS SUMMARY | 2024-06-25 22:19 | XMS_ITS | Encounter Summary ---
Author Organization [facility] Address [address] [place] [address] Phone Care Team Providers Care Machine Guide Base Winder Name Role Phone Julio César Briseno MD Primary Care Provider [phone] Eren Cr MD Unavailable [phone] Yohana Bowen MD Unavailable Encounter Details Date Type Department Care Team (Late st Contact Info) Description 04/09/2022 Telephone [facility] Obstetrics and Gynecology [address] [facility] Advanced Medicine 13th [place] [address] [place] [id number] Oksana Rivas, HUMAN RESOURCE ADVISER [address] [address] Social History Tobacco Use Types Packs/Day [...] on file 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 Apparently she had been experiencing rectal pressure, had taken a dulcolax suppository which did not achieve results.She is now having considerable rectal pressure. I advised a trip to the ER if the pain is not tolerable that she needs to be evaluated. She will purchase a fleets enema oil retention and she will not take another dulcolax. She needs to let the stool soften so that she can pass the bm without trauma. She will call me back for an update. Patient verbalized understanding of all discussed and knows the number to reach out with any more questions. documented in this encounter Plan of Treatment Not on file documented as of this encounter Visit Diagnoses Not on filedocumented in this encounter Care Teams Machine Guide Base Winder Relationship Specialty Start Date End Date Julio César Briseno MD PCP - General 10/01/16 Eren Cr MD Referring Physician Medical Oncology 11/25/18 Yohana Bowen MD Radiation Oncologist Radiation Oncology 11/25/18 documented as of this encounter
--- OUTSIDE RECORDS SUMMARY | 2024-06-25 22:19 | XMS_ITS | Encounter Summary ---
Author Organization [facility] Address [address] [place] [address] Phone Care Team Providers Care [employer] Spanish Teacher Name Role Phone Julio César Briseno MD Primary Care Provider [phone] Eren Cr MD Unavailable [phone] Yohana Bowen MD Unavailable Reason for Visit * Episode Based Medications (Routine) - Authorized Specialty Diagnoses / Procedures Referred By Contellen t Referred To Contact Diagnoses Hypomagnesemia Eren Cr MD [address] [facility] [address] [place] [address] Phone: tel: fax: 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) (Primary Dx); Hypophosphatemia Social History Tobacco Use Types Packs/Day [...] on file 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 Gender Identity Not on file Sexual Orientation Straight 02/19/2021 9: 29 AM CDT Occupation Industry Job Start Date Job End Date retired Not on file Not on file Not on file documented as of this encounter Last Filed Vital Signs Vital Sign Reading Time Taken Comments Blood Pressure 95/60 04/12/2022 1:27 PM CDT Pulse 60 04/12/2022 1:27 PM CDT Temperature 36.2 ??C (97.2 ??F) 04/12/2022 1:27 PM CD T Respiratory Rate 18 04/12/2022 1:27 PM CDT Oxygen Saturation 95% 04/12/2022 1:27 PM CDT Inhaled Oxygen Concentration - - Weight 75.4 kg (166 lb 3.2 oz) 04/12/2022 1:27 P M CDT Height - - Body Mass Index 29.44 04/09/2022 7:02 PM CDT documented in this encounter Nursing Notes * Jocelyn Saucedo, IRVING - 04/12/2022 1:30 PM CDT Oncology Nursing Note [facility] La Chung is a 71 y.o. female who presents for fluids Pre-treatment Nursing Assessment Nursing Assessment Appetite: Fair Diarrhea: Yes (colostomy) Constipation: No Last BM Date: 04/12/22 (colostomy) Existing Patients: Any falls since your last visit?: No New Patients: Any falls since your last visit?: N/A Fatigue: Constant Mouth Sores: No Nausea/Vomiting: Yes Neurological symptoms: No Pain: Yes (discomfort on bottom; md aware) Peripheral Neuropathy: No Pt states has potential to be ?: No Shortness of Breath?: No Skin Condition/Temp: Warm, Dry Oral Mucosa Grade: Normal (0) Abdomen: Soft Swelling: No Additional Notes: BP: 95/60 Temp: 36.2 ??C (97.2 ??F) Temp src: Oral Pulse: 60 Resp: 18 SpO2: 95 % Height: 160 cm (5' 3 ) Weight: 75.4 kg (166 lb 3.2 oz) Treatment Patient: met treatment parameters Pre blood return: Mary Chung tolerated treatment well. Patient was frequently observed and monitored throughout the administration of their treatment. Report given to IRVING Park for remainder of tx. 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)- Primary Hypophosphatemia Disorders of phosphorus metabolism documented in this encounter Administered Medications Inactive Administered Medications - up to 3 most recent administrations Medication Order MAR Action Action Date Dose Rate Site alteplase (CATHFLO ACTIVASE) injection 1 mg 1 mg, intra-catheter, Once, On Lydia 04/12/22 at 1445, For 1 dose, 60 to 120 minute dwell time. Reconstitute 2 mg vial with 2.2 mL SWFI. Resulting solution is ~1 mg/mL. DO NOT SHAKE., Indications: Catheter clearanceIndications:Cathet er clearance Given 04/12/2022 2:19 PM CDT 1 mg ondansetron (ZOFRAN) injection 8 mg 8 mg, intravenous, Administer over 2 Minutes, Once as needed, nausea, vomiting, Starting on Lydia 04/12/22 at 1343, For 1 doseIndications:Hypophospha temia Given 04/12/2022 2:54 PM CDT 8 mg sodium chloride 0.9% bolus 1,000 mL 1,000 mL, intravenous, at 500 mL/hr, Administer over 2 Hours, Once, On Lydia 04/12/22 at 1415, For 1 doseIndications:Hypophospha temia New Bag 04/12/2022 2:52 PM CDT 1,000 mL 500 mL/hr documented in this encounter Orders Medications Ordered That Brett ht Not Have Been Administered Count Last Ordered Date First Ordered Date sodium chloride 0.45% bolus 90 mL 1 022 sodium chloride 0.9% bolus 90 mL 1 04/12/20 22 Appointment Requests Count Last Ordered Date Fi rst Ordered Date ONCBCN INFUSION APPT REQUEST 1 04/12/2022 documented in this encounter Care Teams [employer] Spanish Teacher Relationship Specialty Start Date End Date Julio César Briseno MD PCP - General 10/01/16 Eren Cr MD Referring Physician Medical Oncology 11/25/18 Yohana Bowen MD Radiation Oncologist Radiation Oncology 11/25/18 documented as of this encounter
--- OUTSIDE RECORDS SUMMARY | 2024-06-25 22:19 | XMS_ITS | Encounter Summary ---
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 Gender Identity Not on file Sexual Orientation Straight 02/19/2021 9: 29 AM CDT Occupation Industry Job Start Date Job End Date retired Not on file Not on file Not on file documented as of this encounter Medications at Time of Discharge denosumab (Xgeva) 120 mg/1.7 mL (70 mg/mL) injection Inject 1.7 mL (120 mg total) under the skin every 28 (twenty-eight) days lidocaine-prilocai ne (lidocaine-priloca ine) creamIndications:N euro-endocrine carcinoma (HCC) Apply topically as needed for pain Apply a generous amount topically to port site 1 hour prior to lab/treatment, do not rub in, and cover with non absorbant dressing 30 g 3 09/19/2021 loperamide HCl (IMODIUM A-D ORAL)Indications:d iarrhea Take 1 tablet by mouth daily as [...] nightly ascorbic acid, vitamin C, 500 mg capsuleIndications :supplement Take 1 tablet by mouth campus aide before breakfast 07/04/2016 4 cholecalciferol (VITAMIN D-3) 2,000 unit capsule Take 1 capsule (2,000 Units total) by mouth daily 30 capsule 2 04/25/2019 3 cholestyramine (QUESTRAN) 4 gram packet Take 1 packet by mouth 3 (three) times a day with meals 270 packet 3 09/04/2019 2 clotrimazole-betam ethasone (LOTRISONE) cream Apply 1 Application topically daily as needed (rash) 4 coenzyme F27-[id number] E 100-5 mg-unit capsuleIndications :supplement Take 1 tablet by mouth campus aide before breakfast 4 diphenoxylate-atro pine (LOMOTIL) 2.5-0.025 mg per tabletIndications: Chemotherapy-Induc ed Diarrhea Take 1 tablet by mouth 4 (four) times a day as needed for diarrhea 90 tablet 02/14/[address] (CYMBALTA) 30 mg capsule Take 1 capsule (30 mg total) by mouth daily 30 capsule 2 04/24/2019 4 fluticasone propionate (FLONASE) 50 mcg/actuation nasal sprayIndications:A llergic Rhinitis Administer 2 sprays into each nostril daily as needed for rhinitis or allergies 4 INV-[id number] cabozantinib/place mariela (2018-02-122/A0216 02) 20 mg tabletIndications: cancer study Take 1 tablet (20 mg total) by mouth nightly Take on an empty stomach (no food for 2 hours before and 1 hour after each dose).?? Avoid [place]'s Wort, grapefruit products and [place] oranges while on treatment. placed on hold 09/26/22 for covid 01/29/2022 4 levothyroxine (SYNTHROID) 75 mcg tabletIndications: Hypothyroidism due to medication TAKE 1 TABLET (75 MCG TOTAL) BY MOUTH CAUSTIC STRENGTH INSPECTOR BEFORE BREAKFAST 90 tablet 1 02/22/2022 2 LORazepam (ATIVAN) 0.5 mg tabletIndications: MRI scan Take 1 tablet 1 hour prior to MRI exam, may repeat dose if needed 15 minutes prior to MRI 2 tablet 08/21/2021 4 montelukast (SINGULAIR) 10 mg tablet Take 1 tablet (10 mg total) by mouth as needed (allergies) 4 olmesartan-hydroch lorothiazide (BENICAR HCT) 20-12.5 mg per tabletIndications: hypertension Take 1 tablet by mouth every morning 05/14/2019 4 ondansetron (ZOFRAN) 8 mg tabletIndications: Prevention of Radiation-Induced Nausea and Vomiting Take 1 tablet (8 mg total) by mouth every 8 (eight) hours as needed for nausea or vomiting 20 tablet 3 08/05/2019 3 oxybutynin (DITROPAN) 5 mg tabletIndications: Bladder Hyperactivity Take 1 tablet (5 mg total) by mouth 2 (two) times a day for 14 days 28 tablet 04/24/2019 2 triamcinolone (KENALOG) 0.1 % ointment Apply to itchy rash on hands twice daily until improved 454 g 1 05/06/2020 4 documented as of this encounter Discharge Disposition Disposition Code Departure Means Destination Discharge to home or self care documented in this encounter Plan of Treatment Not on file documented as of this encounter Procedures Procedure Name Priority Date/Time Associated Diagnosis Comments EGFR STAT 03/22/2022 9:53 AM CDT 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) DIFFERENTIAL AUTO Routine 03/22/2022 9:5 3 AM CDT 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) CHROMOGRANIN A Routine 03/22/2022 9:53 AM CDT 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) CBC WITH AUTO DIFFERENTIAL Routine 03/22/2022 9:53 AM CDT 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) VITAMIN D 25 HYDROXY Routine 03/22/2022 9:53 AM CDT 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) PHOSPHORUS Routine 03/22/2022 9:53 AM CDT 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) MAGNESIUM STAT 03/22/2022 9:53 AM CDT Neuro-endocrine carcinoma (CMS/HCC) (HCC) LIPID PANEL Routine 03/22/2022 9:53 AM CDT 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 73 m2 [facility] Comment: Interpretive Data Reference Interval Normal ?>/= [...] interpretive data was last reviewed 2021. Blood 03/22/2022 9:53 AM CDT 03/22/2022 9:55 AM CDT Eren Cr MD LAB BLOOD ORDERABLES Final Re sult [facility] Department [place] [address] * (ABNORMAL) Differential, auto (03/22/2022 9:53 AM CDT) Neutrophil abs 2.1 1.7 - 6.5 K/cumm [facility] Comment:Testing performed by : [facility], [address] [place] [id number] Imm gran abs 0.0 0.0 - 0.1 K/cumm [facility] Lymphocyte abs 0.4(L) 0.8 - 3.3 K/cumm [facility] Monocyte abs 0.4 0.2 - 0.8 K/cumm [facility] Eosinophil abs 0.1 0.0 - 0.5 K/cumm [facility] Basophil abs 0.0 0.0 - 0.1 K/cumm [facility] Neutrophil pct 69.0 % [facility] Comment: Consistent with previous result Interpretive Data Percent cell count reference ranges are not reported, since discordance with absolute values may lead to misinterpretation of CBC data. Current Interpretive Data was last revised on 2017. Imm gran pct 0.3 % [facility] Comment: Interpretive Data Percent cell count reference ranges are not reported, since discordance with absolute values may lead to misinterpretation of CBC data. Current Interpretive Data was last revised on 2017. Lymphocyte pct 14.0 % [facility] Comment: Interpretive Data Percent cell count reference ranges are not reported, since discordance with absolute values may lead to misinterpretation of CBC data. Current Interpretive Data was last revised on 2017. Monocyte pct 12.3 % [facility] Comment: Interpretive Data Percent cell count reference ranges are not reported, since discordance with absolute values may lead to misinterpretation of CBC data. Current Interpretive Data was last revised on 2017. Eosinophil pct 3.7 % [facility] Comment: Interpretive Data Percent cell count reference ranges are not reported, since discordance with absolute values may lead to misinterpretation of CBC data. Current Interpretive Data was last revised on 2017. Basophil pct 0.7 % [facility] Comment: Interpretive Data Percent cell count reference ranges are not reported, since discordance with absolute values may lead to misinterpretation of CBC data. Current Interpretive Data was last revised on 2017. Blood 03/22/2022 9:53 AM CDT 03/22/2022 9:55 AM CDT Eren Cr MD LAB BLOOD ORDERABLES Final Re sult Performing Organization Address [facility] Co de Phone Number [facility] [place] [address] * Magnesium (03/22/2022 9:53 AM CDT) Magnesium 1.5 1.4 - 2.5 mg/dL [facility] Comment:Testing performed by : [address] [address] Blood 03/22/2022 9:53 AM CDT 03/22/2022 9:55 AM CDT Eren Cr MD LAB BLOOD ORDERABLES Final Re sult Performing Organization Address [facility] de Phone Number [facility] [place] [address] * (ABNORMAL) Lipid panel (03/22/2022 9:53 AM CDT) Cholesterol 165 30 - 199 mg/dL [facility] Comment: Interpretive Data Ages < [...] Data was last revised on 2018. Triglycerides 162(H) <=149 mg/dL [facility] Comment: Interpretive Data Ages < or [...] revised on 2018. HDL 56 >=40 mg/dL [facility] Comment: Interpretive Data Ages < or [...] was last revised on 2018. LDL, calculated 77 <=129 mg/dL [facility] Comment: Interpretive Data Ages < or [...] revised on 2018. Non-HDL Cholesterol 109 mg/dL [facility] Comment: Interpretive Data Ages < or [...] last revised on 2018. Chol/HDL ratio 3 [facility] Blood 03/22/2022 9:53 AM CDT 03/22/2022 11:25 AM CDT us Eren Cr MD LAB BLOOD ORDERABLES Final Re sult [facility] Department [place] [address] * (ABNORMAL) Phosphorus (03/22/2022 9:53 AM CDT) Phosphorus, pl 1.8(L) 2.3 - 4.5 mg/dL [facility] Comment:Testing performed by : [address] [address] Blood 03/22/2022 9:53 AM CDT 03/22/2022 9:55 AM CDT Eren Cr MD LAB BLOOD ORDERABLES Final Re sult Performing Organization Address City/[facility]/ZIP Co de Phone Number [facility] Department [place] [address] * (ABNORMAL) Vitamin D 25 hydroxy (03/22/2022 9:53 AM CDT) [facility] Vitamin D 25-OH 23(L) 30 - 80 ng/mL [facility] Blood 03/22/2022 9:53 AM CDT 03/22/2022 11:25 AM CDT Eren Cr MD LAB BLOOD ORDERABLES Final Re sult Performing Organization Address City/[facility] Co de Phone Number [facility] [place] [address] * (ABNORMAL) CBC with auto differential (03/22/2022 9:53 AM CDT) [facility] WBC 3.0(L) 3.8 - 9.9 K/cumm [facility] Comment:Testing performed by : [address] [address] Hgb 11.4(L) 11.9 - 15.5 g/dL [facility] Comment:Testing performed by : [address] [address] Hct 35.0(L) 35.6 - 45.5 % [facility] Comment:Testing performed by : [address] [address] Plt 97(L) 150 - 400 K/cumm [facility] Comment:Testing performed by : [facility], [address] [place] [address] MPV 10.3 9.1 - 12.3 fL [facility] RBC 3.48(L) 3.90 - 5.20 M/cumm [facility] MCV 100.6(H) 81.3 - 96.4 fL [facility] MCH 32.8 27.1 - 33.3 pg [facility] MCHC 32.6 32.3 - 35.7 g/dL [facility] RDW CV 14.4 11.1 - 14.9 % [facility] RDW SD 51.6(H) 35.7 - 48.1 fL [facility] NRBC abs 0.00 0.00 - 0.01 K/cumm [facility] Blood 03/22/2022 9:53 AM CDT 03/22/2022 9:55 AM CDT Eren Cr MD LAB BLOOD ORDERABLES Final Re sult [facility] Department [place] [address] * (ABNORMAL) Comprehensive metabolic panel (03/22/2022 9:53 AM CDT) Sodium 139 135 - 145 mmol/L [facility] Comment:Testing performed by : [facility], [address] [place] [address] Potassium, pl 4.3 3.3 - 4.9 mmol/L [facility] Chloride 111(H) 97 - 110 mmol/L [facility] CO2 24 22 - 32 mmol/L [facility] Anion gap 4 2 - 15 mmol/L [facility] BUN 12 8 - 25 mg/dL [facility] Creatinine 1.20(H) 0.60 - 1.10 mg/dL [facility] Glucose 126 70 - 199 mg/dL [facility] Comment: Interpretive Data Fasting glucose [...] interpretive data was last revised 2017. Calcium 9.8 8.5 - 10.3 mg/dL [facility] Bilirubin, total 0.6 0.1 - 1.2 mg/dL [facility] Protein, pl 6.4(L) 6.5 - 8.5 g/dL [facility] Albumin 4.2 3.5 - 5.0 g/dL [facility] Alk phos 70 40 - 130 Units/L [facility] ALT 20 7 - 45 Units/L [facility] AST 29 10 - 45 Units/L [facility] Blood 03/22/2022 9:53 AM CDT 03/22/2022 9:55 AM CDT us Eren Cr MD LAB BLOOD ORDERABLES Final Re sult [facility] Department [place] [address] * (ABNORMAL) Chromogranin A (03/22/2022 9:53 AM CDT) Chromogranin A 1003(H) <93 ng/mL [facility] Comment: Impaired renal or hepatic function or treatment with proton pump inhibitors may result in artifactual elevations of Chromogranin A. ADDITIONAL INFORMATION This test was developed and its performance characteristics determined by [facility] in a manner consistent with CLIA requirements. [...] a homogeneous time-resolved immunofluorescent assay manufactured by [employer] and performed on the Teravac Kryptor Compact Plus. ? Values obtained with different assay methods or kits may be different and cannot be used interchangeably. ? Test results cannot be interpreted as absolute evidence for the presence or absence of malignant disease. Test Performed by: [facility] [address] [place] [address] Manager Hvac: Immanuel Novak M.D. Ph.D.; CLIA# [id number] Blood 03/22/2022 9:5 3 AM CDT 03/22/2022 11:54 AM CDT Eren Cr MD LAB BLOOD ORDERABLES Final Re sult Performing Organization Address [facility] de Phone Number [facility] [place] [address] * (ABNORMAL) Protein / creatinine ratio, urine, random (03/22/2022 9:50 AM CDT) Protein, ur, quant 45.0 mg/dL [facility] Comment: Interpretive Data No reference range established. Current interpretive data was last revised 2018. Creatinine Ur 235.0 mg/dL [facility] Comment: Interpretive Data No reference range established. Current interpretive data was last revised 2018. Protein/creatinin e ratio 191.5(H) 0.0 - 180.0 mg/g CR [facility] Urine 03/22/2022 9:50 AM CDT 03/22/2022 10:58 AM CDT Eren Cr MD LAB URINE ORDERABLES Final Re sult Performing Organization Address [facility]/ZIP Co de Phone Number [facility] [place] [address] documented in this encounter Visit Diagnoses Diagnosis Neuroendocrine carcinoma (HCC) Other malignant neoplasm of unspecified site Malignant neoplasm metastatic to liver (HCC) Neuro-endocrine carcinoma (HCC) Other malignant neoplasm of unspecified site documented in this encounter Care Teams Carbon Rod Inserter Relationship Specialty Start Date End Date Julio César Briseno MD PCP - General 10/01/16 Eren Cr MD Referring Physician Medical Oncology 11/25/18 Yohana Bowen MD Radiation Oncologist Radiation Oncology 11/25/18 documented as of this encounter
--- OUTSIDE RECORDS SUMMARY | 2024-06-25 22:19 | XMS_ITS | Encounter Summary ---
Author Organization [facility] Healthcare Address [address] [place] [address] Care Team Providers Care Supervisor Screen Printing Name Role Phone Julio César Briseno MD Primary Care Provider [phone] Eren Cr MD Unavailable [phone] Yohana Bowen MD Unavailable Reason for Referral * Diagnostic Imaging (Routine) - Closed Specialty Diagnoses / Procedures Referred By Contac t Referred To Contact Diagnoses Screening mammogram, encounter for Procedures Screening Mammogram Bilateral W Seng Screening Mammogram, Self [facility] Referral ID Status Reason Start Date Expiration Date Visits Re quested Visits Authorized [id number] Closed 03/02/2022 04/01/2023 1 1 * Diagnostic Imaging (Routine) - Closed Specialty Diagnoses / Procedures Referred By Contac t Referred To Contact Diagnoses Screening mammogram, encounter for Procedures Screening Mammogram Bilateral W Seng Screening Mammogram, Self [facility] Referral ID Status Reason Start Date Expiration Date Visits Re quested Visits Authorized [id number] Closed 03/02/2022 04/01/2023 1 1 Reason for Visit * Diagnostic Imaging (Routine) - Closed Specialty Diagnoses / Procedures Referred By Contac t Referred To Contact Diagnoses Screening mammogram, encounter for Procedures Screening Mammogram Bilateral W Seng Screening Mammogram, Self [facility] Referral ID Status Reason Start Date Expiration Date Visits Re quested Visits Authorized [id number] Closed 03/02/2022 04/01/2023 1 1 Encounter Details Date Type Department Care Team (Latest Contact Info) Description 04/02/2022 8:31 AM CDT - 04/02/2022 11:59 PM CDT Hospital Encounter [facility] Breast Imaging 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 Gender Identity Not on file Sexual Orientation [...] each 6 09/21/2019 prochlorperazine (COMPAZINE) 10 mg tabletIndications: Cancer Chemotherapy-Induc ed Nausea and Vomiting Take 1 tablet (10 mg total) by mouth every 6 (six) hours as needed for nausea 60 tablet 3 03/23/2022 simvastatin (ZOCOR) 20 mg tablet Take 1 tablet (20 mg total) by mouth nightly ascorbic acid, vitamin C, 500 mg capsuleIndications :supplement Take 1 tablet by mouth grinder operator automatic before breakfast 07/04/2016 4 cholecalciferol (VITAMIN D-3) 2,000 unit capsule Take 1 capsule (2,000 Units total) by mouth daily 30 capsule 2 04/25/2019 3 cholestyramine (QUESTRAN) 4 gram packet Take 1 packet by mouth 3 (three) times a day with meals 270 packet 3 09/04/2019 2 clotrimazole-betam ethasone (LOTRISONE) cream Apply 1 Application topically daily as needed (rash) 4 coenzyme [id number] 100-5 mg-unit capsuleIndications :supplement Take 1 tablet by mouth grinder operator automatic before breakfast 4 diphenoxylate-atro pine (LOMOTIL) 2.5-0.025 [...] rhinitis or allergies 4 [id number] cabozantinib/place mariela (2018-08-122/A0216 02) 20 mg tabletIndications: cancer study Take 1 tablet (20 mg total) by mouth nightly Take on an empty stomach (no food for 2 hours before and 1 hour after each dose).?? Avoid Jas's Wort, grapefruit products and [place] oranges while on treatment. placed on hold 09/26/22 for covid 01/29/2022 4 levothyroxine (SYNTHROID) 75 mcg tabletIndications: Hypothyroidism due to medication TAKE 1 TABLET (75 MCG TOTAL) BY MOUTH CAN RECONDITIONER BEFORE BREAKFAST 90 tablet 1 02/22/2022 2 [...] SENG Schedule Routine, Read Routine (OP Routine) 04/02/2022 9:03 AM CDT Screening mammogram, encounter for documented in this encounter Results * Screening Mammogram Bilateral W Seng (04/02/2022 9:03 AM CDT) Anatomical Region Laterality Modality Breast Bilateral Mammography Narrative 04/03/2022 4:08 PM CDT Mammogram Technique: Bilateral Digital Breast Tomosynthesis, Bilateral C-view 2D Screening mammogram. ??Views obtained: ??bilateral craniocaudal and bilateral mediolateral oblique. ??Computer Aided Detection was performed. Mammogram Findings: The present examination has been compared to prior imaging studies performed at [facility] on 01/27/2018, 12/21/2019 and 01/23/2021. There are scattered areas of fibroglandular density. There is no suspicious abnormality in either breast. Impression: There is no mammographic evidence of malignancy. Annual screening mammography is recommended. OVERALL FINAL ASSESSMENT: BI-RADS CATEGORY 1: ??Negative. Procedure Note Jennifer Gould MD - 04/03/2022 Mammogram Technique: Bilateral Digital Breast Tomosynthesis, Bilateral C-view 2D Screening mammogram. Views obtained: bilateral craniocaudal and bilateral mediolateral oblique. Computer Aided Detection was performed. Mammogram Findings: The present examination has been compared to prior imaging studies performed at [facility] on 01/27/2018, 12/21/2019 and 01/23/2021. There are scattered areas of fibroglandular density. There is no suspicious abnormality in either breast. Impression: There is no mammographic evidence of malignancy. Annual screening mammography is recommended. OVERALL FINAL ASSESSMENT: BI-RADS CATEGORY 1: Negative. us Self Screening Mammogram IMG MAMMO PROCEDURES Fi nal Result documented in this encounter Visit Diagnoses Diagnosis Screening mammogram, encounter for documented in this encounter Care Teams Supervisor Screen Printing Relationship Specialty Start Date End Date Julio César Briseno MD PCP - General 10/01/16 Eren Cr MD Referring Physician Medical Oncology 11/25/18 Yohana Bowen MD Radiation Oncologist Radiation Oncology 11/25/18 documented as of this encounter
--- OUTSIDE RECORDS SUMMARY | 2024-06-25 22:19 | XMS_ITS | Encounter Summary ---
Author Organization 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 Gender Identity Not on file Sexual Orientation Straight 02/19/2021 9: 29 AM CDT Occupation Industry Job Start Date Job End Date retired Not on file Not on file Not on file documented as of this encounter Plan of Treatment Not on file documented as of this encounter Visit Diagnoses Diagnosis Malignant neoplasm metastatic to liver (HCC)- Primary documented in this encounter Orders Appointment Requests Count Last Ordered Date Fi rst Ordered Date ONCBCN INFUSION APPT REQUEST 4 04/19/2022 03/29/2022 documented in this encounter Care Teams Horse Rancher Relationship Specialty Start Date End Date Julio César Briseno MD PCP - General 10/01/16 Eren Cr MD Referring Physician Medical Oncology 11/25/18 Yohana Bowen MD Radiation Oncologist Radiation Oncology 11/25/18 documented as of this encounter
--- OUTSIDE RECORDS SUMMARY | 2024-06-25 22:19 | XMS_ITS | Encounter Summary ---
Author Organization [facility] Address [address] [place] [address] Phone Care Team Providers Care Tissue Rewinder Name Role Phone Julio César Briseno MD Primary Care Provider [phone] Eren Cr MD Unavailable [phone] Yohana Bowen MD Unavailable Reason for Visit * Reason Comments Port Draw * Episode Based Medications (Routine) - Closed Specialty Diagnoses / Procedures Referred By Contellen t Referred To Contact Diagnoses Neuro-endocrine carcinoma (HCC) Procedures study [id number] phase III cabozantinib Eren Cr MD [address] [place] [address] Phone: tel: fax: [facility] [address] 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
--- OUTSIDE RECORDS SUMMARY | 2024-06-25 22:19 | XMS_ITS | Encounter Summary ---
Author Organization [facility] Address [address] [place] [address] Phone Care Team Providers Care Sea Captain Name Role Phone Julio César Briseno MD Primary Care Provider Eren Cr MD Unavailable [phone] Yohana Bowen MD Unavailable Encounter Details Date Type Department Care Team (Late st Contact Info) Description 03/22/2022 Orders Only [facility] Oncology [address] [place] [address] Eren Cr MD [address] [place], [place] [phone] Social History Tobacco Use Types Packs/Day Years [...] on file 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
--- OUTSIDE RECORDS SUMMARY | 2024-06-25 22:19 | XMS_ITS | Encounter Summary ---
Author Organization [facility] Address [address] [place] [address] Phone Care Team Providers Care Hotel Or Motel Manager Name Role Phone Julio César Briseno MD Primary Care Provider Eren rC MD Unavailable [phone] Yohana Bowen MD Unavailable Encounter Details Date Type Department Care Team (Late st Contact Info) Description 04/12/2022 Orders Only [facility] Oncology [address] [place] [address] Eren Cr MD [address] [place], [place] [phone] Social History Tobacco Use Types Packs/Day Years [...] on file 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
--- OUTSIDE RECORDS SUMMARY | 2024-06-25 22:19 | XMS_ITS | Encounter Summary ---
Author Organization [facility] Address [address] [place] [address] Phone Care Team Providers Care Manager Title Name Role Phone Julio César Briseno MD Primary Care Provider Eren Cr MD Unavailable [phone] Yohana Bowen MD Unavailable Encounter Details Date Type Department Care Team (Late st Contact Info) Description 03/23/2022 Orders Only [facility] Oncology [address] [place] [address] Eren Cr MD [address] [place], [place] [id number] CINV (chemotherapy-induced nausea and vomiting) (Primary Dx); Neuroendocrine carcinoma (CMS/HCC) (HCC) Social [...] on file 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 Female 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 Gender Identity Not on file Sexual Orientation Straight 02/19/2021 9: 29 AM CDT Occupation Industry Job Start Date Job End Date retired Not on file Not on file Not on file documented as of this encounter Ordered Prescriptions Prescription Sig Dispense Quantity Refills Last Filled Start Date End Date prochlorperazine (COMPAZINE) 10 mg tabletIndications:C ancer Chemotherapy-Induce d Nausea and Vomiting Take 1 tablet (10 mg total) by mouth every 6 (six) hours as needed for nausea 60 tablet 3 03/23/2022 documented in this encounter Plan of Treatment Not on file documented as of this encounter Visit Diagnoses Diagnosis CINV (chemotherapy-induced nausea and vomiting)- Primary Neuroendocrine carcinoma (HCC) Other malignant neoplasm of unspecified site documented in this encounter Care Teams Manager Title Relationship Specialty Start Date End Date Julio César Briseno MD PCP - General 10/01/16 Eren Cr MD Referring Physician Medical Oncology 11/25/18 Yohaan Bowen MD Radiation Oncologist Radiation Oncology 11/25/18 documented as of this encounter
--- OUTSIDE RECORDS SUMMARY | 2024-06-25 22:19 | XMS_ITS | Encounter Summary ---
Author Organization [facility] Address [address] [place] [address] Phone Care Team Providers Care Service Tester Name Role Phone Julio César Briseno MD Primary Care Provider Eren Cr MD Unavailable [phone] Yohana Bowen MD Unavailable Encounter Details Date Type Department Care Team (Late st Contact Info) Description 03/29/2022 Orders Only [facility] Oncology [address] [place] [address] Eren Cr MD [address] [place], [place] [phone] Social History Tobacco Use Types Packs/Day Years [...] on file Legal 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 Female 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
--- OUTSIDE RECORDS SUMMARY | 2024-06-25 22:19 | XMS_ITS | Encounter Summary ---
Author Organization [facility] Address [address] [place] [address] Phone Care Team Providers Care Oracle Business Intelligence Developer Name Role Phone Julio César Briseno MD Primary Care Provider Eren Cr MD Unavailable [phone] Yohana Bowen MD Unavailable Encounter Details Date Type Department Care Team (Late st Contact Info) Description 03/22/2022 Orders Only [facility] Oncology [address] [place] [address] Eren Cr MD [address] [place] [address] Neuro-endocrine carcinoma (CMS/HCC) (HCC) (Primary [...] file Legal Sex Female 2:41 PM GROUP HOME PARA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 Gender Identity Not on file Sexual Orientation Straight 02/19/2021 9: 29 AM CDT Occupation Industry Job Start Date Job End Date retired Not on file Not on file Not on file documented as of this encounter Plan of Treatment Not on file documented as of this encounter Results * Protein / creatinine ratio, urine, random (05/17/2022 12:16 PM GROUP HOME PARA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) Protein, ur, quant 10.6 mg/dL [facility] Comment: Interpretive Data No reference range established. Current interpretive data was last revised 2018. Creatinine Ur 140.9 mg/dL [facility] Comment: Interpretive Data No reference range established. Current interpretive data was last revised 2018. Protein/creatinin e ratio 75.2 0.0 - 180.0 mg/g CR [facility] Urine 05/17/2022 12:1 6 PM GROUP HOME PARA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 05/17/2022 1:51 PM GROUP HOME PARA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 Eren Cr MD LAB URINE ORDERABLES Final Re sult Performing Organization Address [facility]/ZIP Co de Phone Number [facility] [employer] [place], [place] [id number] * Magnesium (05/17/2022 11:34 AM GROUP HOME PARA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) Magnesium 1.6 1.4 - 2.5 mg/dL [facility] Comment:Testing performed by : [facility], [address] [place] [address] Blood 05/17/2022 11:3 4 AM GROUP HOME PARA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 05/17/2022 11:36 AM GROUP HOME PARA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 Eren Cr MD LAB BLOOD ORDERABLES Final Re sult [facility] Department [place] [address] * Comprehensive metabolic panel (05/17/2022 11:34 AM GROUP HOME PARA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) Sodium 139 135 - 145 mmol/L [facility] Comment:Testing performed by : [facility], [address] [place] [address] Potassium, pl 4.0 3.3 - 4.9 mmol/L [facility] Chloride 107 97 - 110 mmol/L [facility] CO2 26 22 - 32 mmol/L [facility] Anion gap 6 2 - 15 mmol/L [facility] BUN 13 8 - 25 mg/dL [facility] Creatinine 1.10 0.60 - 1.10 mg/dL [facility] Glucose 106 70 - 199 mg/dL [facility] Comment: [...] 2017. Calcium 9.9 8.5 - 10.3 mg/dL [facility] Bilirubin, total 0.5 0.1 - 1.2 mg/dL [facility] Protein, pl 6.6 6.5 - 8.5 g/dL [facility] Albumin 4.2 3.5 - 5.0 g/dL [facility] Alk phos 60 40 - 130 Units/L [facility] ALT 27 7 - 45 Units/L [facility] AST 35 10 - 45 Units/L [facility] Blood 05/17/2022 11:3 4 AM GROUP HOME PARA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 05/17/2022 11:36 AM GROUP HOME PARA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 us Eren Cr MD LAB BLOOD ORDERABLES Final Re sult [facility] Department [place] [address] * (ABNORMAL) CBC with auto differential (05/17/2022 11:34 AM GROUP HOME PARA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) WBC 3.6(L) 3.8 - 9.9 K/cumm [facility] Comment:Testing performed by : [facility], [address] [place] [address] Hgb 11.5(L) 11.9 - 15.5 g/dL [facility] Comment:Testing performed by : [facility], [address] [place] [address] Hct 34.6(L) 35.6 - 45.5 % [facility] Comment:Testing performed by : [address] [address] Plt 97(L) 150 - 400 K/cumm [facility] Comment:Testing performed by : [address] [address] MPV 11.0 9.1 - 12.3 fL [facility] RBC 3.44(L) 3.90 - 5.20 M/cumm [facility] MCV 100.6(H) 81.3 - 96.4 fL [facility] MCH 33.4(H) 27.1 - 33.3 pg [facility] MCHC 33.2 32.3 - 35.7 g/dL [facility] RDW CV 14.1 11.1 - 14.9 % [facility] RDW SD 51.1(H) 35.7 - 48.1 fL [facility] NRBC abs 0.00 0.00 - 0.01 K/cumm [facility] Blood 05/17/2022 11:3 4 AM GROUP HOME PARA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 05/17/2022 11:36 AM GROUP HOME PARA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 Eren Cr MD LAB BLOOD ORDERABLES Final Re sult [facility] One [facility] [place] [address] * (ABNORMAL) Chromogranin A (04/19/2022 10:00 AM CDT) Chromogranin A 1141(H) <93 ng/mL [facility] Comment: Impaired renal or hepatic function or treatment with proton pump inhibitors may result in artifactual elevations of Chromogranin A. ADDITIONAL INFORMATION This test was developed and its performance characteristics determined by [facility] in a manner consistent with CLIA [...] a homogeneous time-resolved immunofluorescent assay manufactured by [employer] and performed on the [employer] Kryptor Compact Plus. ? Values obtained with different assay methods or kits may be different and cannot be used interchangeably. ? Test results cannot be interpreted as absolute evidence for the presence or absence of malignant disease. Test Performed by: [place] [address] [employer] Ass[employer]: Immanuel Novak M.D. Ph.D.; CLIA# [id number] Blood 04/19/2022 10:0 0 AM CDT 04/19/2022 11:51 AM CDT us Eren Cr MD LAB BLOOD ORDERABLES Final Re sult [facility] Department [place] [address] * (ABNORMAL) Vitamin D 25 hydroxy (04/19/2022 10:00 AM CDT) Vitamin D 25-OH 23(L) 30 - 80 ng/mL [facility] Blood 04/19/2022 10:0 0 AM CDT 04/19/2022 11:43 AM CDT Eren Cr MD LAB BLOOD ORDERABLES Final Re sult Performing Organization Address City/[facility] Co de Phone Number [facility] Department [place] [address] * Phosphorus (04/19/2022 10:00 AM CDT) Phosphorus, pl 2.8 2.3 - 4.5 mg/dL [facility] Comment:Testing performed by : [address] [address] Blood 04/19/2022 10:0 0 AM CDT 04/19/2022 10:03 AM CDT Eren Cr MD LAB BLOOD ORDERABLES Final Re sult Performing Organization Address [facility] de Phone Number [facility] [place] [address] * (ABNORMAL) Lipid panel (04/19/2022 10:00 AM CDT) Cholesterol 121 30 - 199 mg/dL [facility] Comment: Interpretive Data Ages < or = [...] revised on 2018. Triglycerides 185(H) <=149 mg/dL [facility] Comment: Interpretive Data Ages < or = [...] revised on 2018. HDL 56 >=40 mg/dL [facility] Comment: Interpretive Data Ages < or = [...] on 2018. LDL, calculated 28 <=129 mg/dL [facility] Comment: Interpretive Data Ages < or = [...] on 2018. Non-HDL Cholesterol 65 mg/dL [facility] Comment: Interpretive Data [...] revised on 2018. Chol/HDL ratio [address] [facility] Blood 04/19/2022 10:0 0 AM CDT 04/19/2022 11:43 AM CDT us Eren Cr MD LAB BLOOD ORDERABLES Final Re sult [facility] Department [place] [address] * (ABNORMAL) TSH (04/19/2022 10:00 AM CDT) Thyroid Stimulating Hormone 7.34(H) 0.30 - 4.20 mcIUnit/mL [facility] Blood 04/19/2022 10:0 0 AM CDT 04/19/2022 11:43 AM CDT Eren Cr MD LAB BLOOD ORDERABLES Final Re sult Performing Organization Address [facility] Co de Phone Number [facility] [place] [address] * Magnesium (04/19/2022 10:00 AM CDT) Pathologist [facility] Magnesium 1.6 1.4 - 2.5 mg/dL [facility] Comment:Testing performed by : [address] [address] Blood 04/19/2022 10:0 0 AM CDT 04/19/2022 10:03 AM CDT Eren Cr MD LAB BLOOD ORDERABLES Final Re sult Performing Organization Address [facility] de Phone Number [facility] [place] [address] * (ABNORMAL) Comprehensive metabolic panel (04/19/2022 10:00 AM CDT) [facility] Sodium 140 135 - 145 mmol/L [facility] Comment:Testing performed by : [address] [address] Potassium, pl 3.8 3.3 - 4.9 mmol/L [facility] Chloride 108 97 - 110 mmol/L [facility] CO2 26 22 - 32 mmol/L [facility] Anion gap 6 2 - 15 mmol/L [facility] BUN 15 8 - 25 mg/dL [facility] Creatinine 1.22(H) 0.60 - 1.10 mg/dL [facility] Glucose 116 70 - 199 mg/dL [facility] Comment: [...] 2017. Calcium 10.6(H) 8.5 - 10.3 mg/dL [facility] Bilirubin, total 0.4 0.1 - 1.2 mg/dL [facility] Protein, pl 6.3(L) 6.5 - 8.5 g/dL [facility] Albumin 4.0 3.5 - 5.0 g/dL [facility] Alk phos 51 40 - 130 Units/L [facility] ALT 21 7 - 45 Units/L [facility] AST 28 10 - 45 Units/L [facility] Blood 04/19/2022 10:0 0 AM CDT 04/19/2022 10:03 AM CDT Eren Cr MD LAB BLOOD ORDERABLES Final Re sult [facility] Department [place] [address] * (ABNORMAL) CBC with auto differential (04/19/2022 10:00 AM CDT) WBC 4.6 3.8 - 9.9 K/cumm [facility] Comment:Testing performed by : [address] [address] Hgb 11.7(L) 11.9 - 15.5 g/dL [facility] Comment:Testing performed by : [address] [address] Hct 35.5(L) 35.6 - 45.5 % [facility] Comment:Testing performed by : [address] [address] Plt 125(L) 150 - 400 K/cumm [facility] Comment:Testing performed by : [address] [address] MPV 10.6 9.1 - 12.3 fL [facility] RBC 3.54(L) 3.90 - 5.20 M/cumm [facility] MCV 100.3(H) 81.3 - 96.4 fL [facility] MCH 33.1 27.1 - 33.3 pg [facility] MCHC 33.0 32.3 - 35.7 g/dL [facility] RDW CV 14.1 11.1 - 14.9 % [facility] RDW SD 50.8(H) 35.7 - 48.1 fL [facility] NRBC abs 0.00 0.00 - 0.01 K/cumm [facility] Blood 04/19/2022 10:0 0 AM CDT 04/19/2022 10:03 AM CDT Eren Cr MD LAB BLOOD ORDERABLES Final Re sult Performing Organization Address City/State/[facility] Co de Phone Number [facility] Department [place] [address] documented in this encounter Visit Diagnoses Diagnosis Neuro-endocrine carcinoma (HCC)- Primary Other malignant neoplasm of unspecified site 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) Neuroendocrine carcinoma (HCC) Other malignant neoplasm of unspecified site documented in this encounter Orders Appointment Requests Count Last Ordered Date Fi rst Ordered Date ONCBCN CLINIC APPOINTMENT REQUEST 2 022 04/19/2022 ONCBCN LAB APPOINTMENT 2 05/17/202204/19 ONCBCN TAKE HOME STUDY DRUG APPT 2 05/17/20 22 04/19/2022 ONCBCN INJECTION APPOINTMENT REQUEST 1 04/07 documented in this encounter Care Teams Oracle Business Intelligence Developer Relationship Specialty Start Date End Date Julio César Briseno MD PCP - General 10/01/16 Eren Cr MD Referring Physician Medical Oncology 11/25/18 Yohana Bowen MD Radiation Oncologist Radiation Oncology 11/25/18 documented as of this encounter
--- OUTSIDE RECORDS SUMMARY | 2024-06-25 22:19 | XMS_ITS | Encounter Summary ---
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) (Primary Dx); Dehydration; Neuroendocrine carcinoma (CMS/HCC) [...] on file Legal 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 Gender Identity Not on file Sexual Orientation Straight 02/19/2021 9: 29 AM CDT Occupation Industry Job Start Date Job End Date retired Not on file Not on file Not on file documented as of this encounter Last Filed Vital Signs Vital Sign Reading Time Taken Comments Blood Pressure 122/67 03/29/2022 2:08 PM CDT Pulse 82 03/29/2022 2:08 PM CDT Temperature 36.3 ??C (97.3 ??F) 03/29/2022 2:08 PM CD T Respiratory Rate 20 03/29/2022 2:08 PM CDT Oxygen Saturation 97% 03/29/2022 2:08 PM CDT Inhaled Oxygen Concentration - - Weight 75.4 kg (166 lb 3.2 oz) 03/29/2022 2:08 P M CDT Height - - Body Mass Index 28.48 03/07/2022 2:27 PM CDT documented in this encounter Nursing Notes * [place] - 03/29/2022 1:30 PM CDT Oncology Nursing Note [facility] La Chung is a 71 y.o. female who presents for fluids. Pre-treatment Nursing Assessment Nursing Assessment Appetite: Good Diarrhea: Yes (colostomy) Constipation: No Existing Patients: Any falls since your last visit?: No New Patients: Any falls since your last visit?: N/A Fatigue: Occassional Mouth Sores: No Nausea/Vomiting: Yes (none now but may happen toward end of fluids, per pt) Neurological symptoms: No Pain: No (ned horse both legs, intermittent) Peripheral Neuropathy: No Pt states has potential to be ?: No Shortness of Breath?: No Skin Condition/Temp: Warm, Dry Oral Mucosa Grade: Normal (0) Swelling: No BP: 122/67 Temp: 36.3 ??C (97.3 ??F) Pulse: 82 Resp: 20 SpO2: 97 % Weight: 75.4 kg (166 lb 3.2 oz) Treatment Patient: met treatment parameters Pre blood return: Mary Chung tolerated treatment well. Patient was frequently observed and monitored throughout the administration of their treatment. Post blood return: Brisk IV access post infusion: NS Discharge Plan Discharge instructions given to patient. Future appointments given and reviewed with treatment plan. 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)- Primary Dehydration Neuroendocrine carcinoma (HCC) Other malignant neoplasm of unspecified site documented in this encounter Administered Medications Inactive Administered Medications - up to 3 most recent administrations Medication Order MAR Action Action Date Dose Rate Site sodium chloride 0.9% bolus 1,000 mL 1,000 mL, intravenous, at 500 mL/hr, Administer over 2 Hours, Once, On Lydia 03/29/22 at 1515, For 1 doseIndications:Dehydration ,Neuroendocrine carcinoma (HCC) New Bag 03/29/2022 2:27 PM CDT 1,000 mL 500 mL/hr documented in this encounter Orders Medications Ordered That Brett ht Not Have Been Administered Count Last Ordered Date First Ordered Date sodium chloride 0.9% bolus 1,000 mL 1 03/29 Appointment Requests Count Last Ordered Date Fi rst Ordered Date ONCBCN INFUSION APPT REQUEST 1 03/29/2022 documented in this encounter Care Teams Athletic Equipment Manager Relationship Specialty Start Date End Date Julio César Briseno MD PCP - General 10/01/16 Eren Cr MD Referring Physician Medical Oncology 11/25/18 Yohana Bowen MD Radiation Oncologist Radiation Oncology 11/25/18 documented as of this encounter
--- OUTSIDE RECORDS SUMMARY | 2024-06-25 22:20 | XMS_ITS | Encounter Summary ---
Author Organization [facility] Address [address] [place] [address] Phone Care Team Providers Care Jordan Worker Name Role Phone Julio César Briseno MD Primary Care Provider [phone] Eren Cr MD Unavailable [phone] Yohana Bowen MD Unavailable Encounter Details Date Type Department Care Team (Late st Contact Info) Description 02/07/2022 Orders Only [facility] Oncology [address] [place] [address] Eren Cr MD [address] [place], [place] [id number] Social History Tobacco Use Types Packs/Day Years [...] on file 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
--- OUTSIDE RECORDS SUMMARY | 2024-06-25 22:20 | XMS_ITS | Encounter Summary ---
Author Organization [facility] Address [address] [place] [address] Care Team Providers Care Coal Washer Name Role Phone Julio César Briseno MD Primary Care Provider [phone] Eren Cr MD Unavailable [phone] Yohana Bowen MD Unavailable Encounter Details Date Type Department Care Team (Latest Contact Info) Description 02/01/2022 1:58 PM CDT - 02/01/2022 11:59 PM CDT Hospital Encounter [facility] [address] [place] [address] Neuro-endocrine carcinoma (CMS/HCC) (HCC); Elevated TSH Discharge Disposition: Discharge to home or self [...] on file 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 Gender Identity Not on file Sexual [...] tablet (20 mg total) by mouth nightly potassium phosphate, monobasic, (K-PHOS) 500 mg (3.6 mmol of phosphorus) tabletIndications: Low phosphate levels,Neuro-endoc rine carcinoma (HCC) Take 1 tablet (500 mg total) by mouth 2 (two) times a day for 14 days 28 tablet 02/01/2022 2 ascorbic acid, vitamin C, 500 mg capsuleIndications :supplement Take 1 tablet by mouth diesel instructor before breakfast 07/04/2016 4 cholecalciferol (VITAMIN D-3) 2,000 unit capsule Take 1 capsule (2,000 Units total) by mouth daily 30 capsule 2 04/25/2019 3 cholestyramine (QUESTRAN) 4 gram packet Take 1 packet by mouth 3 (three) times a day with meals 270 packet 3 09/04/2019 2 clotrimazole-betam ethasone (LOTRISONE) cream Apply 1 Application topically daily as needed (rash) 4 coenzyme [id number] 100-5 mg-unit capsuleIndications :supplement Take 1 tablet by mouth diesel instructor before breakfast 4 diphenoxylate-atro pine (LOMOTIL) 2.5-0.025 [...] dose).?? Avoid Jas's Wort, grapefruit products and Merkel oranges while on treatment. placed on hold 09/26/22 for covid 01/29/2022 4 levothyroxine (Synthroid) 75 mcg tabletIndications: Hypothyroidism due to medication Take 1 tablet (75 mcg total) by mouth diesel instructor before breakfast 30 tablet 3 11/16/2021 2 LORazepam (ATIVAN) 0.5 mg tabletIndications: MRI [...] Procedure Name Priority Date/Time Associated Diagnosis Comments T3, FREE Routine 02/01/2022 2:10 PM CDT Neuro-endocrine carcinoma (CMS/HCC) (HCC) Elevated TSH T4, FREE Routine 02/01/2022 2:10 PM CDT Neuro-endocrine carcinoma (CMS/HCC) (HCC) Elevated TSH documented in this encounter Results * (ABNORMAL) T4, free (02/01/2022 2:10 PM CDT) Free T4 0.85(L) 0.90 - 1.70 ng/dL [facility] Blood 02/01/2022 2:10 PM CDT 02/01/2022 3:02 PM CDT Eren Cr MD LAB BLOOD ORDERABLES Final Re sult [facility] [place] [address] * (ABNORMAL) T3, free (02/01/2022 2:10 PM CDT) Free T3 1.8(L) 2.0 - 4.4 pg/mL [facility] Blood 02/01/2022 2:10 PM CDT 02/01/2022 3:02 PM CDT us Eren Cr MD LAB BLOOD ORDERABLES Final Re sult [facility] Department [place] [address] documented in this encounter Visit Diagnoses Diagnosis Neuro-endocrine carcinoma (HCC) Other malignant neoplasm of unspecified site Elevated TSH Other abnormal blood chemistry documented in this encounter Care Teams Coal Washer Relationship Specialty Start Date End Date Julio César Briseno MD PCP - General 10/01/16 Eren Cr MD Referring Physician Medical Oncology 11/25/18 Yohana Bowen MD Radiation Oncologist Radiation Oncology 11/25/18 documented as of this encounter
--- OUTSIDE RECORDS SUMMARY | 2024-06-25 22:20 | XMS_ITS | Encounter Summary ---
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) Bone metastasis Procedures CT chest abdomen pelvis with contrast Eren Cr MD [address] [place] [address] Phone: tel: fax: [facility] [address] [place] [address] Referral ID Status Reason Start Date Expiration Date Visits Re quested Visits Authorized [id number] Closed 02/26/2022 03/28/2023 1 1 Reason for Visit * MRI/CAT/PET Scan (Routine) - Closed Specialty Diagnoses / Procedures Referred By [facility] Referred To Contact Radiology Diagnoses 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 specialist before breakfast 07/04/2016 4 cholecalciferol (VITAMIN D-3) 2,000 unit capsule Take 1 capsule (2,000 Units total) by mouth daily 30 capsule 2 04/25/2019 3 cholestyramine (QUESTRAN) 4 gram packet Take 1 packet by mouth 3 (three) times a day with meals 270 packet 3 09/04/2019 2 clotrimazole-betam ethasone (LOTRISONE) cream Apply 1 Application topically daily as needed (rash) 4 coenzyme P50-oyibnay E 100-5 mg-unit capsuleIndications :supplement Take 1 tablet by mouth coastal and estuary specialist before breakfast 4 diphenoxylate-atro pine (LOMOTIL) 2.5-0.025 [...] rhinitis or allergies 4 INV-[id number] cabozantinib/place mariela (/A0216 ) 20 mg tabletIndications: cancer study Take 1 tablet (20 mg total) by mouth nightly Take on an empty stomach (no food for 2 hours before and 1 hour after each dose).?? Avoid Wibaux's Wort, grapefruit products and Allen oranges while on treatment. placed on hold 09/26/22 for covid 01/29/2022 4 levothyroxine (SYNTHROID) 75 mcg tabletIndications: Hypothyroidism due to medication TAKE 1 TABLET (75 MCG TOTAL) BY MOUTH PLATFORM POWER TECHNICIAN BEFORE BREAKFAST 90 tablet 1 02/22/2022 2 [...] CONTRAST Schedule Routine, Read Routine (OP Routine) 03/21/2022 3:54 PM CDT 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) Bone metastasis (CMS/HCC) (HCC) documented in this encounter Results * CT chest abdomen pelvis with contrast (03/21/2022 3:54 PM CDT) Anatomical Region Laterality Modality Body N/A Computed Tomogra phy 03/21/2022 9:58 PM CDT Impressions 03/21/2022 9:58 PM CDT 1. ??No findings to suggest thoracic metastatic disease. 2. ??Stable abdominal metastatic disease as evidenced by stable hepatic metastases, hepatic serosal deposits, vaginal cuff metastasis, numerous nodules studding the sigmoid colon and loops of small bowel, peritoneal nodules, and retroperitoneal adenopathy. ??It is conceivable that some of the areas of enhancing nodularity and architectural distortion associated with the sigmoid colon could represent sequela of diverticular disease given the background of diverticulosis. 3. ??Stable to slightly improved sigmoid colon wall thickening favored to represent sequela of prior diverticular disease. Electronically signed by: Sergio Flores M.D. Narrative 03/21/2022 9:58 PM CDT EXAMINATION: ??Computed tomography of the chest, abdomen and pelvis with intravenous contrast HISTORY: Ileal neuroendocrine tumor, metastatic TECHNIQUE: ??Transaxial computed tomographic images of the chest, abdomen and pelvis were obtained with intravenous contrast according to the standard protocol after the uneventful administration of 100 mL Opti-Ray 350 intravenous contrast. COMPARISON: 02/02/2022 FINDINGS: ?? Chest: There is unchanged reticulation and suggestion of some pleural nodularity in the middle lobe in the lateral basilar segment of the right lower lobe which is favored to represent scarring. ??Fissural nodes are present. ??No suspicious pulmonary parenchymal nodule. ??No consolidation or edema effusion or pneumothorax. ??Heart is normal size. ??No pericardial effusion. ??Calcification of the thoracic aorta. Note is made of a apparent right subclavian artery. A right chest wall internal jugular port catheter tip is present terminating at the superior cavoatrial junction. Unchanged prominent right supraclavicular and high right paratracheal lymph nodes. ??No pathologically enlarged thoracic lymph node. Abdomen/Pelvis: Stable hepatic metastases. ??For reference segment 7 lesion (-10309) measures 2.3 x 1.9 cm, unchanged segment 4 lesion measuring 2.4 x 2.2 cm (-712.5) is unchanged when measured similarly. ??No new hepatic lesions. ??Stomach normal. ??No biliary ductal dilatation. ??Pancreas and spleen are normal. ??Adrenals normal. ??Kidneys enhance symmetrically. ??Exophytic cyst right upper pole. ??No hydronephrosis. A large duodenal diverticulum is redemonstrated. Urinary bladder is decompressed. 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 ??Diffuse thickening of the sigmoid colon on a background of diverticular disease is unchanged. ??There is multifocal enhancing nodules including a 1.3 cm nodule associated with a focus of distortion of the sigmoid colon and an additional 2 cm nodule which tethers the sigmoid colon and the adjacent small bowel (-954.5).. Peritoneal nodularity along the left aspect of these findings is unchanged. ??Scattered peritoneal nodules some of which tethering of small bowel in the right hemiabdomen (-880.5) are stable. ??For reference a 5 mm nodule at the slice position is unchanged. Diverting loop colostomy as well as colectomy and anastomosis. 1.1 cm retroperitoneal lymph node (-860.5) is stable. ??There is no abdominal aortic aneurysm. No discrete suspicious osseous lesion. Procedure Note Sergio Flores MD - 03/21/2022 EXAMINATION: Computed tomography of the chest, abdomen and pelvis with intravenous contrast HISTORY: Ileal neuroendocrine tumor, metastatic TECHNIQUE: Transaxial computed tomographic images of the chest, abdomen and pelvis were obtained with intravenous contrast according to the standard protocol after the uneventful administration of 100 mL Opti-Ray 350 intravenous contrast. COMPARISON: 02/02/2022 FINDINGS: Chest: There is unchanged reticulation and suggestion of some pleural nodularity in the middle lobe in the lateral basilar segment of the right lower lobe which is favored to represent scarring. Fissural nodes are present. No suspicious pulmonary parenchymal nodule. No consolidation or edema effusion or pneumothorax. Heart is normal size. No pericardial effusion. Calcification of the thoracic aorta. Note is made of a apparent right subclavian artery. A right chest wall internal jugular port catheter tip is present terminating at the superior cavoatrial junction. Unchanged prominent right supraclavicular and high right paratracheal lymph nodes. No pathologically enlarged thoracic lymph node. Abdomen/Pelvis: Stable hepatic metastases. For reference segment 7 lesion (-99876) measures 2.3 x 1.9 cm, unchanged segment 4 lesion measuring 2.4 x 2.2 cm (-712.5) is unchanged when measured similarly. No new hepatic lesions. Stomach normal. No biliary ductal dilatation. Pancreas and spleen are normal. Adrenals normal. Kidneys enhance symmetrically. Exophytic cyst right upper pole. No hydronephrosis. A large duodenal diverticulum is redemonstrated. Urinary bladder is decompressed. 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 Diffuse thickening of the sigmoid colon on a background of diverticular disease is unchanged. There is multifocal enhancing nodules including a 1.3 cm nodule associated with a focus of distortion of the sigmoid colon and an additional 2 cm nodule which tethers the sigmoid colon and the adjacent small bowel (-954.5).. Peritoneal nodularity along the left aspect of these findings is unchanged. Scattered peritoneal nodules some of which tethering of small bowel in the right hemiabdomen (-880.5) are stable. For reference a 5 mm nodule at the slice position is unchanged. Diverting loop colostomy as well as colectomy and anastomosis. 1.1 cm retroperitoneal lymph node (-860.5) is stable. There is no abdominal aortic aneurysm. No discrete suspicious osseous lesion. IMPRESSION: 1. No findings to suggest thoracic metastatic disease. 2. Stable abdominal metastatic disease as evidenced by stable hepatic metastases, hepatic serosal deposits, vaginal cuff metastasis, numerous nodules studding the sigmoid colon and loops of small bowel, peritoneal nodules, and retroperitoneal adenopathy. It is conceivable that some of the areas of enhancing nodularity and architectural distortion associated with the sigmoid colon could represent sequela of diverticular disease given the background of diverticulosis. 3. Stable to slightly improved sigmoid colon wall thickening favored to represent sequela of prior diverticular disease. Electronically signed by: Sergio Flores M.D. us Eren Cr MD IMG CT PROCEDURES Final [...] 500 Units (5 mL), intra-catheter, Once, On Sat03/21/22 at 1630, For 1 dose Given 03/21/2022 4:02 PM CDT 500 Units ioversoL (OPTIRAY 350) injection 90 mL 90 mL, intravenous, Once in imaging, contrast, Starting on Sat03/21/22 at 1551, For 1 dose Contrast Given 03/21/2022 3:53 PM CDT 90 mL documented in this encounter Care Teams Barrel Bridge Assembler Relationship Specialty Start Date End Date Julio César Briseno MD PCP - General 10/01/16 Eren Cr MD Referring Physician Medical Oncology 11/25/18 Yohana Bowen MD Radiation Oncologist Radiation Oncology 11/25/18 documented as of this encounter
--- OUTSIDE RECORDS SUMMARY | 2024-06-25 22:20 | XMS_ITS | Encounter Summary ---
Author Organization [facility] Address [address] [place] [address] Phone Care Team Providers Care Court Assistant Name Role Phone Julio César Briseno MD Primary Care Provider [phone] Eren Cr MD Unavailable [phone] Yohana Bowen MD Unavailable Reason for Visit * Episode Based Medications (Routine) - Authorized Specialty Diagnoses / Procedures Referred By [facility] t Referred To Contact Diagnoses Hypomagnesemia Eren Cr MD [address] [facility] [address] [place] [address] Phone: tel: fax: [facility] 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 Gender Identity Not on file Sexual Orientation Straight 02/19/2021 9: 29 AM CDT Occupation Industry Job Start Date Job End Date retired Not on file Not on file Not on file documented as of this encounter Last Filed Vital Signs Vital Sign Reading Time Taken Comments Blood Pressure 150/79 03/01/2022 3:59 PM CDT Pulse 74 03/01/2022 3:59 PM CDT Temperature 36.2 ??C (97.2 ??F) 03/01/2022 3:59 PM CD T Respiratory Rate 18 03/01/2022 3:59 PM CDT Oxygen Saturation 97% 03/01/2022 3:59 PM CDT Inhaled Oxygen Concentration - - Weight 76.9 kg (169 lb 9.6 oz) 03/01/2022 3:59 P M CDT Height - - Body Mass Index 31.02 10/19/2021 4:00 PM CDT documented in this encounter Nursing Notes * Renetta Quijano RN - 03/01/2022 4:00 PM CDT P/there for 1L NS bolus hydration. P/t D/C home by self, UAL, stable. documented in this encounter Plan of Treatment [...] Administer over 2 Hours, Once, On Lydia 03/01/22 at 1700, For 1 doseIndications:Neuroendocr ine carcinoma (HCC) New Bag 03/01/2022 4:21 PM CDT 1,000 mL 500 mL/hr documented in this encounter Orders Medications Ordered That Brett ht Not Have Been Administered Count Last Ordered Date First Ordered Date sodium chloride 0.9% bolus 1,000 mL 1 03/01 Appointment Requests Count Last Ordered Date Fi rst Ordered Date ONCBCN INFUSION APPT REQUEST 1 03/01/2022 documented in this encounter Care Teams Court Assistant Relationship Specialty Start Date End Date Julio César Briseno MD PCP - General 10/01/16 Eren Cr MD Referring Physician Medical Oncology 11/25/18 Yohana Bowen MD Radiation Oncologist Radiation Oncology 11/25/18 documented as of this encounter
--- OUTSIDE RECORDS SUMMARY | 2024-06-25 22:20 | XMS_ITS | Encounter Summary ---
Author Organization [facility] Address [address] [place] [address] Phone Care Team Providers Care Burrer Machine Name Role Phone Julio César Briseno MD Primary Care Provider [phone] Eren Cr MD Unavailable [phone] Yohana Bowen MD Unavailable Reason for Visit * Reason Comments Follow-up Encounter Details Date Type Department Care Team (Late st Contact Info) Description 03/07/2022 2:30 PM CDT Office Visit [facility] Obstetrics and Gynecology [address] [facility] 13th [place] [address] [place] [id number] Oksana Rivas NP [address] [address] Neuroendocrine carcinoma (CMS/HCC) (HCC) (Primary Dx) Social [...] Average Number of Drinks Not on file 08/12/2 021 Frequency of Binge Drinking Not on file 02/05 Comments No Sex and Gender Information Value Date Recorded Sex Assigned at Not on file Legal Sex Female 2:41 PM 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 DISTILLER Gender Identity Not on file Sexual Orientation Straight 02/19/2021 9: 29 AM CDT Occupation Industry Job Start Date Job End Date retired Not on file Not on file Not on file documented as of this encounter Last Filed Vital Signs Vital Sign Reading Time Taken Comments Blood Pressure 165/81 03/07/2022 2:27 PM CDT Pulse 82 03/07/2022 2:27 PM CDT Temperature 36.8 ??C (98.2 ??F) 03/07/2022 2:27 PM CD T Respiratory Rate 18 03/07/2022 2:27 PM CDT Oxygen Saturation 97% 03/07/2022 2:27 PM CDT Inhaled Oxygen Concentration - - Weight 76.6 kg (168 lb 14.4 oz) 03/07/2022 2:27 PM CDT Height 162.7 cm (5' 4.06 ) 03/07/2022 2:27 PM CD T Body Mass Index 28.94 03/07/2022 2:27 PM CDT documented in this encounter Progress Notes * Oksana Rivas, CECILIA - 03/07/2022 2:30 PM CDT Gynecological Oncology Follow-up Surveillance Patient: La Chung : 1950 Date of Exam: 03/07/2022 HPI: La Chung is a 71 y.o., female with a history of a low grade carcinoid tumor She initially presented with a mass in the right colon which was symptomatic. Dr Reeves removed the mass. 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 She is seeing Dr. Dm Crfor this. On recent Ga- 68 DOTATATE-PET/CT imaging it was noted that interval progression of metastatic neuroendocrine tumor with at least three new hepatic lesions, one new retroperitoneal nodule andnew sites of osseous disease, compatible with overall disease progression. She is being treated with everolimus and octreotide along with xgeva for bone mets. She is here now for routine gynecologic care and overall is doing well in this regard. She is current on screening exams. She denies abdominal bloating or pain. No vaginal bleeding or discharge. She does experience a mixed urinary incontinence. She has noted a grade 2 diarrhea which she takes imodium and lomotil. Occasional nausea can be managed with SL ativan. Visit Diagnosis: No diagnosis found. 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, unspecified (HCC) 04/14/2020 Abdominal pain 01/13/2020 Benign essential hypertension 01/13/2020 Blepharitis 01/13/2020 Cough 01/13/2020 Diarrhea 01/13/2020 Enthesopathy of knee 01/13/2020 Excess or deficiency of vitamin D 01/13/2020 Knee pain 01/13/2020 Low back pain 01/13/2020 Mass of ovary 01/13/2020 Osteoarthritis of knee 01/13/2020 Pure hypercholesterolemia 01/13/2020 Shoulder joint pain 01/13/2020 Epithelial hyperplasia 07/22/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) 05/14/2019 Acute blood loss anemia 04/17/2019 Hypocalcemia 04/14/2019 ANNE-MARIE (acute kidney injury) (CMS/HCC) (HCC) 04/14/2019 Large bowel obstruction (CMS/HCC) (HCC) 04/12/2019 Bone metastasis (CMS/HCC) (HCC) 03/02/2019 Neuro-endocrine carcinoma (CMS/HCC) (HCC) 06/18/2018 Neuroendocrine tumor 01/06/2018 Mixed incontinence 10/23/2017 H/O actinic keratosis 07/05/2017 Personal history of diseases of skin or subcutaneous tissue 07/05/2017 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) 04/09/2017 Anemia 04/09/2016 Neuroendocrine carcinoma (CMS/HCC) (HCC) 10/24/2015 Obesity with body mass index 30 or greater 09/01/2015 Family history of malignant neoplasm of other organs or systems 06/29/2015 Family history of melanoma 06/29/2015 Abnormal findings on diagnostic imaging of breast 06/07/2014 Past Medical History: Diagnosis Date Arthritis Cancer [...] PORT PLACEMENT CHEST >5 YEARS N/A 09/14/2021 MS REMOVAL OF TONSILS,<12 Y/O Tonsillectomy - (Added by TW Conv) MS TOTAL ABDOM HYSTERECTOMY Hysterectomy - (Added by TW Conv) Allergies Allergen Reactions Morphine Blisters Ezetimibe-Simvastatin Muscle [...] Other (old age) Mother Melanoma Daughter 30 Current Medications: Current Outpatient Medications Medication Sig Dispense Refill ascorbic acid, vitamin C, 500 mg capsule Take 1 tablet by mouth early childhood education worker before breakfast cholecalciferol (VITAMIN D-3) 2,000 unit capsule Take 1 capsule (2,000 Units total) by mouth daily 30 capsule 2 cholestyramine (QUESTRAN) 4 gram packet Take 1 packet by mouth 3 (three) times a day with meals (Patient not taking: Reported on 10/19/2021) 270 packet 3 clotrimazole-betamethasone (LOTRISONE) cream clotrimazole-betamethasone 1 %-0.05 % topical cream APPLY EXTERNALLY TO ABDOMEN TWICE DAILY NEEDED coenzyme [id number] 100-5 mg-unit capsule Take by mouth early childhood education worker before breakfast denosumab (Xgeva) 120 mg/1.7 mL [...] propionate 50 mcg/actuation nasal spray,suspension [id number] cabozantinib/placebo (/[id number]) 20 mg tablet Take 20 mg by mouth daily Takeon an empty stomach (no food for 2 hours before and 1 hour after each dose). Avoid Wilmot's Wort,grapefruit products and [place] oranges while on treatment. levothyroxine (SYNTHROID) 75 mcg tablet TAKE 1 TABLET (75 MCG TOTAL) BY MOUTH FILLING CARRIER BEFORE BREAKFAST 90 tablet 1 lidocaine-prilocaine (lidocaine-prilocaine) cream Apply [...] 0 montelukast (SINGULAIR) 10 mg tablet Take 10 mg by mouth as needed octreotide (SandoSTATIN) 100 mcg/mL injection Sandostatin olmesartan-hydrochlorothiazide (BENICAR HCT) 20-12.5 mg per tablet Take 0.5 tablets by mouth early childhood education worker before breakfast decrease dosage to 0.5 tablet daily 05/14/[address] Briseno at office visit. ondansetron (ZOFRAN) 8 mg tablet Take 1 tablet (8 mg total) by mouth every 8 (eight) hours as needed for nausea or vomiting 20 tablet 3 ostomy supplies [facility] Patient has colostomy and needs Cavilon 3M skin barrier film to manage. 20 each 6 oxybutynin (DITROPAN) 5 mg tablet Take 1 tablet (5 mg total) by mouth 2 (two) times a day for 14 days 28 tablet 0 simvastatin (ZOCOR) 20 mg tablet Take 20 [...] mL intravenous Continuous Meagan Amaya MD Last Imagin02/03/2022 CT IMPRESSION: 1. Stable metastatic disease in the abdomen and pelvis since 10/13/2021, characterized by multifocal hepatic metastases, multiple peritoneal deposits, retroperitoneal adenopathy, and vaginal cuff nodule. 2. Small soft tissue projection of a small bowel loop in the left lower quadrant is not well seen previously and is favored to represent a small bowel diverticulum given presence of additional small and large bowel diverticular disease, rather than a new peritoneal deposit. Attention on follow-up imaging is advised. 3. No evidence of metastatic disease within the chest. 4. Progressive focal circumferential thickening of the distal sigmoid colon may relate to incomplete distension versus neoplasm. Correlation with colonoscopy is recommended. Recent Tumor Markers: Lab Results Component Value Date CA125 11.8 10/03/2015 Treatment Toxicity: Preventive screening: Health Maintenance Topic Date Due Fall Risk Assessment Never done Depression Screening-PHQ Never done Colon Cancer Screening-Colonoscopy Never done Well Visit 65+ Never done Covid-19 Vaccine (4 - Booster for Moderna series) 05/31/2021 Breast Cancer Screening-Mammogram 01/23/2022 Influenza Vaccine (1) 03/08/2022 Osteoporosis Screening-Bone Density Scan 03/10/2022 DTaP/Tdap/Td Vaccine (2 - Td or Tdap) 11/20/2030 Pneumococcal vaccine 65+ Completed Zoster Vaccines Completed Hepatitis C Screening Completed Bone Density Scan: Abnormal; and Date: 03/10/2020 Objective Physical exam: There were no vitals taken for this visit. Constitutional: She is oriented to person, place, [...] She exhibits no distension and no mass. Colostomy with intact opaque appliance, passing semi liquid stool. There is no tenderness. No hernia. External Genitalia:Normal, no vulvar lesions seen. Normal hair distribution. Urethral Meatus:Normal in size, caliber and location. Urethra:Clear. No prolapse or polyps Vagina:Clear, no lesions seen or palpated. No significant cystocele or rectocele. Adequate support. Bimanual:Cervix and uterus surgically absent. Rectovaginal:Confirms. There was stool noted in the rectal vault. Musculoskeletal: Normal range of motion. She exhibits no edema or tenderness. Lymphadenopathy: She has no cervical adenopathy. Neurological: She is alert and oriented to person, place, and time. No sensory deficit. Skin: Skin is warm and dry. No rash noted. Psychiatric: She has a normal mood and affect. Labs: Lab Results Component Value Date WBC 3.9 02/22/2022 HGB 11.0 (L) 02/22/2022 HCT 32.7 (L) 02/22/2022 NEUTROABS 2.7 02/22/2022 LABPLAT 98 (L) 02/22/2022 CALCIUM 10.2 02/22/2022 CO2 27 02/22/2022 ALBUMIN 4.0 02/22/2022 PROT 6.4 (L) 02/22/2022 ANIONGAP 7 02/22/2022 TRIG 217 (H) 02/22/2022 HDL 55 02/22/2022 ALT 23 02/22/2022 AST 33 02/22/2022 MAGNESIUM 1.7 02/22/2022 SODIUM 143 02/22/2022 POTASSIUM 4.2 02/22/2022 CHLORIDE 109 02/22/2022 CREATININE 1.12 (H) 02/22/2022 BUNSER 14 02/22/2022 GLUCOSE 94 02/22/2022 INR 0.9 07/04/2021 BILITOT 0.7 02/22/2022 CA125 11.8 10/03/2015 Assessment/Plan La is a 71 y.o., female with a history of carcinoid tumor/well differentiated neuro endocrine. She is here today for follow-up. Metastatic neuroendocrine tumor with metastases - Continues on Octreotide LAR 30 mg; injection given 02/22/2022 - CT 02/02/22 showed stable disease She will continue to follow up with [...] in one years time. Oksana Rivas NP 03/07/2022 9:43 AM CC: Patient Care Team and PCP: Julio César Briseno MD Enclosures:Note Cosigned by Jasbir Reeves MD at 03/08/2022 7:21 AM CDT documented in this encounter Plan of Treatment Not on file documented as of this encounter Visit Diagnoses Diagnosis Neuroendocrine carcinoma (HCC)- Primary Other malignant neoplasm of unspecified site documented in this encounter Care Teams Burrer Machine Relationship Specialty Start Date End Date Julio César Briseno MD PCP - General 10/01/16 Eren Cr MD Referring Physician Medical Oncology 11/25/18 Yohana Bowen MD Radiation Oncologist Radiation Oncology 11/25/18 documented as of this encounter
--- OUTSIDE RECORDS SUMMARY | 2024-06-25 22:20 | XMS_ITS | Encounter Summary ---
Author Organization [facility] Address [address] [place] [address] Phone Care Team Providers Care Defensive Fire Control Systems Operator Name Role Phone Julio César Briseno MD Primary Care Provider [phone] Eren Cr MD Unavailable [phone] Yohana Bowen MD Unavailable Encounter Details Date Type Department Care Team (Late st Contact Info) Description 03/15/2022 Orders Only [facility] Oncology [address] [place] [address] Rupali Kohler, [place] Social History Tobacco Use [...] on file Legal 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 Gender Identity Not on file Sexual Orientation Straight 02/19/2021 9: 29 AM CDT Occupation Industry Job Start Date Job End Date retired Not on file Not on file Not on file documented as of this encounter Plan of Treatment Not on file documented as of this encounter Visit Diagnoses Not on filedocumented in this encounter Care Teams Defensive Fire Control Systems Operator Relationship Specialty Start Date End Date Julio César Briseno MD PCP - General 10/01/16 Eren Cr MD Referring Physician Medical Oncology 11/25/18 Yohana Bowen MD Radiation Oncologist Radiation Oncology 11/25/18 documented as of this encounter
--- OUTSIDE RECORDS SUMMARY | 2024-06-25 22:20 | XMS_ITS | Encounter Summary ---
Author Organization [facility] Address [address] [place] [address] Phone Care Team Providers Care Honeycomb Blanket Maker Name Role Phone Julio César Brisneo MD Primary Care Provider [phone] Eren Cr MD Unavailable [phone] Yohana Bowen MD Unavailable Reason for Visit * Episode Based Medications (Routine) - Closed Specialty Diagnoses / Procedures Referred By Evelyne bowman Referred To Contact Diagnoses Neuro-endocrine carcinoma (HCC) Procedures study [id number] phase III cabozantinib Eren Cr MD [address] [facility] [address] [place] [address] Phone: tel: fax: [facility] [address] [facility] [address] [facility] 7th [place] [address] Phone: tel: Referral ID Status Reason Start Date Expiration Date Visits Re quested Visits Authorized [id number] Closed 06/21/2021 06/26/2024 1 99 Encounter Details Date Type Department Care Team (Latest Contact Info) Description 02/22/2022 10:45 AM CDT Clinical Support [facility] [address] [place] [address] Neuro-endocrine carcinoma (CMS/HCC) (HCC) Social History Tobacco [...] on file Legal Sex Female 2:41 PM PILOT Gender Identity Not on file Sexual [...] rst Ordered Date ONCBCN LAB APPOINTMENT 1 02/22/2022 documented in this encounter Care Teams Honeycomb Blanket Maker Relationship Specialty Start Date End Date Julio César Briseno MD PCP - General 10/01/16 Eren Cr MD Referring Physician Medical Oncology 11/25/18 Yohana Bowen MD Radiation Oncologist Radiation Oncology 11/25/18 documented as of this encounter
--- OUTSIDE RECORDS SUMMARY | 2024-06-25 22:20 | XMS_ITS | Encounter Summary ---
Author Organization [facility] Address [address] [place] [address] Phone Care Team Providers Care Service Order Taker Name Role Phone Julio César Briseno MD Primary Care Provider [phone] Eren Cr MD Unavailable [phone] Yohana Bowen MD Unavailable Reason for Visit * Episode Based Medications (Routine) - Authorized Specialty Diagnoses / Procedures Referred By Evelyne t Referred To Contact Oncology Diagnoses Neuroendocrine carcinoma (HCC) Malignant neoplasm metastatic to liver (HCC) Procedures ID OCTREOTIDE INJECTION, DEPOT Octreotide 28 Day Cycles - Carcinoid Eren Cr MD [address] [place] [address] Phone: tel: fax: [address] [address] Phone: tel: fax: Referral ID Status Reason Start Date Expiration Date V isits Requested Visits Authorized [id number] Authorized 11/28/2017 02/05/2025 1 150 Encounter Details Date Type Department Care Team (Latest Contact Info) Description 03/22/2022 9:30 AM CDT Clinical Support [facility] Oncology [address] [place] [address], [place] [address] Neuro-endocrine carcinoma (CMS/HCC) (HCC); Neuroendocrine carcinoma (CMS/HCC) [...] file Legal Sex Female 2:41 PM 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
--- OUTSIDE RECORDS SUMMARY | 2024-06-25 22:20 | XMS_ITS | Encounter Summary ---
Author Organization [facility] Address [address] [place] [address] Phone Care Team Providers Care Head Still Operator Name Role Phone Julio César Briseno MD Primary Care Provider [phone] Eren Cr MD Unavailable [phone] Yohana Bowen MD Unavailable Encounter Details Date Type Department Care Team (Late st Contact Info) Description 03/15/2022 Orders Only [facility] Oncology [address] [place] [address] Eren Cr MD [address] [place], [place] [id number] Neuroendocrine carcinoma (CMS/HCC) (HCC) (Primary Dx) Social [...] on file Legal Sex Female 2:41 PM 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
--- OUTSIDE RECORDS SUMMARY | 2024-06-25 22:20 | XMS_ITS | Encounter Summary ---
Author Organization [facility] Address [address] [place] [address] Phone Care Team Providers Care Us Marketing Director Name Role Phone Julio César Briseno MD Primary Care Provider Eren Cr MD Unavailable Yohana Bowen MD Unavailable Encounter Details Date Type Department Care Team (Late st Contact Info) Description 02/22/2022 Orders Only [facility] Oncology [address] [place] [address] Eren Cr MD [address] [place], [place] [id number] Social History Tobacco Use Types Packs/Day Years [...] on file Legal 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
--- OUTSIDE RECORDS SUMMARY | 2024-06-25 22:20 | XMS_ITS | Encounter Summary ---
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) Procedures [place] OCTREOTIDE INJECTION, DEPOT Octreotide 28 Day Cycles - Carcinoid Eren Cr MD [address] [facility] [address] [place] [address] Phone: tel: fax: [facility] Cancer [address] [address] Phone: tel: fax: Referral ID Status Reason Start Date Expiration Date V isits Requested Visits Authorized [id number] Authorized 11/28/2017 02/05/2025 1 150 Encounter Details Date Type Department Care Team (Late st Contact Info) Description 03/22/2022 10:00 AM CDT Office Visit [facility] Oncology [address] [place] [address] Eren Cr MD [address] [place] [address] 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) [...] on file 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 Gender Identity Not on file Sexual Orientation Straight 02/19/2021 9: 29 AM CDT Occupation Industry Job Start Date Job End Date retired Not on file Not on file Not on file documented as of this encounter Last Filed Vital Signs Vital Sign Reading Time Taken Comments Blood Pressure 143/78 03/22/2022 9:51 AM CDT Pulse 99 03/22/2022 9:51 AM CDT Temperature 36.3 ??C (97.3 ??F) 03/22/2022 9:51 AM CD T Respiratory Rate 16 03/22/2022 9:51 AM CDT Oxygen Saturation 99% 03/22/2022 9:51 AM CDT Inhaled Oxygen Concentration - - Weight 76.7 kg (169 lb 3.2 oz) 03/22/2022 9:51 A M CDT Height - - Body Mass Index 28.99 03/07/2022 2:27 PM CDT documented in this encounter Progress Notes * Eren Cr Jr., MD - 03/22/2022 10:00 AM CDT Images from the original note were not included. MEDICAL ONCOLOGY OUTPATIENT ROV NOTE DATE OF VISIT: 03/22/2022 DIAGNOSIS: well differentiated neuroendocrine tumor of ileum [...] diarrhea and now on 20 mg cabozantinib daily since a month ago. she stated that she had been feeling much better. Octreotide injection due on 02/13. She presents to clinic today with minimal complaints. Her weight is stable. She has normal urinary function. She denies abdominal pain, nausea, vomiting, diarrhea, constipation, fevers, or chills. REVIEW OF SYSTEMS: A complete review of systems was performed and positive and pertinent negative responses are documented in the history of present illness All other systems were negative. PHYSICAL EXAM: ECOG PS: 1 VITALS: BP 143/78 (BP Location: Left arm) Pulse 99 Temp 36.3 ??C (97.3 ??F) (Temporal) Resp 16 Wt 76.7 kg (169 lb 3.2 oz) SpO2 99% BMI 28.99 kg/m?? GEN: Calm, conversant, well-appearing female in [...] exposed skin. . Minimal erythema. 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 Labs - Hematology Latest Ref Range 01/16/22 01/29/22 02/22/22 03/22/22 WBC 3.8 - 9.9 K/cumm 3.1 (A) 3.2 (A) 3.9 3.0 (A) Total Hb, POC 11.9 - 15.5 g/dL 12.2 11.0 (A) 11.0 (A) 11.4 (A) Hct 35.6 - 45.5 % 35.3 (A) 30.9 (A) 32.7 (A) 35.0 (A) Plt 150 - 400 K/cumm 107 (A) 88 (A) 98 (A) 97 (A) Neutrophil abs 1.7 - 6.5 K/cumm 1.9 1.8 2.7 2.1 Lymphocytes, abs 0.8 - 3.3 K/cumm 0.5 (A) 0.5 (A) 0.5 (A) 0.4 (A) (A) Abnormal value Comments are available for some flowsheets but are not being displayed. Chem/LFT Lab History Some values may be hidden. Unless noted otherwise, only the newest values recorded on each date aredisplayed. Labs-Chem/LFT Latest Ref Range 01/18/22 01/29/22 02/22/22 03/22/22 Sodium 135 - 145 mmol/L 138 139 143 139 Creatinine 0.60 - 1.10 mg/dL 1.70 (A) 0.97 1.12 (A) 1.20 (A) Bilirubin, total 0.1 - 1.2 mg/dL 0.5 0.7 0.6 AST 10 - 45 Units/L 24 33 29 ALT 7 - 45 Units/L 16 23 20 CrCl- Actual Body Weight (Cockcroft-Gault) 34.6 62.7 54 50.6 (A) Abnormal value Comments are available for some flowsheets but are not being displayed. Tumor Marker History Some values may be hidden. Unless noted otherwise, only the newest values recorded on each date aredisplayed. Tumor Markers Latest Ref Range 12/11/21 01/15/22 01/29/22 02/22/22 Chromogranin A <93 ng/mL 773 (A) 1014 (A) 930 (A) 874 (A) (A) Abnormal value Comments are available for some flowsheets but are not being displayed. RADIOGRAPHIC/DIAGNOSTIC REVIEW: CT chest/abdomen/pelvis 03/21/2022: No findings to suggest [...] 20 mg dosing - Scans planned in 2 months Chromogranin A level 874 on 02/22/2022 2. Progressive focal circumferential thickening of the distal sigmoid colon per scan 01/2022 -she is not symptomatic from this and we discussed possible colonoscopy with her and her daughter - this is improved with her scans 03/21/2022. 3. Thrombocytopenia: - Platelet 97K and stable. No signs of bleeding 4. Bone metastases: - Xgeva hold due to low Phos 1.8 today; Ca 9.8 Creatinine 1.2 -po repletion for Phos - Continue monitor Cr, Phos, and Calcium -continue IVF 5. Diarrhea - improved - Continue Lomotil and add Imodium as needed 6. TSH elevated -TSH 02/22/2022 6.09 - Continue synthroid 75 mcg daily 7. Vitamin D insufficiency/Deficiency: -Vit D 02/22/2022 26 - Vitamin D 50 000 international units weekly All of her and her 's questions were answered to their satisfaction and they verbalized understanding. Dr. Eren Cr Jump to the Problem List Disease Status Documentation for mCODE Neoplastic Disease Neuroendocrine carcinoma (CMS/HCC) (HCC) Cancer Disease Assessment for mCODE Date of diagnosis: 10/03/15 Disease status: stable Reason for disease status: imaging Date of cancer disease status assessment: 03/22/22 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) Neuro-endocrine carcinoma (CMS/HCC) (HCC) Bone metastasis (CMS/HCC) (HCC) H/O actinic keratosis Neuroendocrine tumor Cancer [facility]: No change in treatment plan documented [...] 022 documented in this encounter Care Teams Water Fitness Instructor Relationship Specialty Start Date End Date Julio César Brisneo MD PCP - General 10/01/16 Eren Cr MD Referring Physician Medical Oncology 11/25/18 Yohana Bowen MD Radiation Oncologist Radiation Oncology 11/25/18 documented as of this encounter
--- OUTSIDE RECORDS SUMMARY | 2024-06-25 22:20 | XMS_ITS | Encounter Summary ---
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
--- OUTSIDE RECORDS SUMMARY | 2024-06-25 22:20 | XMS_ITS | Encounter Summary ---
Author Organization [facility] Address [address] [place] [address] Care Team Providers Care Ballroom Dance Instructor Name Role Phone Julio César Briseno MD Primary Care Provider Eren Cr MD Unavailable [phone] Yohana Bowen MD Unavailable Reason for Visit * Reason Comments OP Infusion Encounter Details Date Type Department Care Team (Latest Contact Info) Description 02/02/2022 4:30 PM CDT - 02/02/2022 11:59 PM CDT Hospital Encounter 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 Gender Identity Not on file Sexual Orientation Straight 02/19/2021 9: 29 AM CDT Occupation Industry Job Start Date Job End Date retired Not on file Not on file Not on file documented as of this encounter Last Filed Vital Signs Vital Sign Reading Time Taken Comments Blood Pressure 127/52 02/02/2022 7:20 PM CDT Pulse 54 02/02/2022 7:20 PM CDT Temperature 36.8 ??C (98.2 ??F) 02/02/2022 7:20 PM CD T Respiratory Rate 16 02/02/2022 7:20 PM CDT Oxygen Saturation 100% 02/02/2022 7:20 PM CDT Inhaled Oxygen Concentration - - [...] capsuleIndications :supplement Take 1 tablet by mouth assembler billiard table before breakfast 07/04/2016 4 cholecalciferol (VITAMIN D-3) 2,000 unit capsule Take 1 capsule (2,000 Units total) by mouth daily 30 capsule 2 04/25/2019 3 cholestyramine (QUESTRAN) 4 gram packet Take 1 packet by mouth 3 (three) times a day with meals 270 packet 3 09/04/2019 2 clotrimazole-betam ethasone (LOTRISONE) cream Apply 1 Application topically daily as needed (rash) 4 coenzyme [id number] E 100-5 mg-unit capsuleIndications :supplement Take 1 tablet by mouth assembler billiard table before breakfast 4 diphenoxylate-atro pine (LOMOTIL) 2.5-0.025 [...] rhinitis or allergies 4 [id number] cabozantinib/place mariela (2017-08-122/A0216 02) 20 mg tabletIndications: cancer study Take 1 tablet (20 mg total) by mouth nightly Take on an empty stomach (no food for 2 hours before and 1 hour after each dose).?? Avoid Jas's Wort, grapefruit products and [place] oranges while on treatment. placed on hold 09/26/22 for covid 01/29/2022 4 levothyroxine (Synthroid) 75 mcg tabletIndications: Hypothyroidism due to medication Take 1 tablet (75 mcg total) by mouth assembler billiard table before breakfast 30 tablet 3 11/16/2021 2 [...] Nursing Notes * Elissa Lopez RN - 02/02/2022 4:30 PM CDT Patient arrived at the [facility] for hydration. VSS. PAC accessed prior to arrival. Positive blood returnand flushed briskly. 1L NS given over 2hrs. Patient tolerated well. VSS. Port de-accessed per protocol. AVS declined. Patient discharged ambulatory in stable condition. documented in this encounter [...] Once as needed, line care, Starting on Sat02/02/22 at 1701, Flush when all medication administered and labs completed for the day.Indications:Neuroendocri ne carcinoma (HCC) Given 02/02/2022 7:17 PM CDT 500 Units ondansetron (ZOFRAN) injection 8 mg 8 mg, intravenous, Administer over 2 Minutes, Once, On Sat02/02/22 at 1750, For 1 doseIndications:Neuroendocri ne carcinoma (HCC) Given 02/02/2022 5:22 PM CDT 8 mg sodium chloride 0.9% bolus 1,000 mL 1,000 mL, intravenous, at 500 mL/hr, Administer over 2 Hours, Once, On Sat02/02/22 at 1735, For 1 doseIndications:Neuroendocri ne carcinoma (HCC) New Bag 02/02/2022 5:23 PM CDT 1,000 mL 500 mL/hr documented in this encounter Orders Medications Ordered That Brett ht Not Have Been Administered Count Last Ordered Date First Ordered Date dextrose 5% infusion 1 02/02/2022 heparin 10 unit/mL flush 30 Units 1 022 sodium chloride 0.9% flush 10 mL 2 02/03/20 22 sodium chloride 0.9% infusion 1 02/02/2022 Nursing Count Last Ordered Date First Orde red Date CENTRAL LINE DRESSING 1 02/02/2022 ONCBCN NURSING COMMUNICATION [id number] 1 02/02 documented in this encounter Care Teams Ballroom Dance Instructor Relationship Specialty Start Date End Date Julio César Briseno MD PCP - General 10/01/16 Eren Cr MD Referring Physician Medical Oncology 11/25/18 Yohana Bowen MD Radiation Oncologist Radiation Oncology 11/25/18 documented as of this encounter
--- OUTSIDE RECORDS SUMMARY | 2024-06-25 22:20 | XMS_ITS | Encounter Summary ---
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) Bone metastasis Procedures CT chest abdomen pelvis with contrast Eren Cr MD [address] [place] [address] Phone: tel: fax: [address] [address] Referral ID Status Reason Start Date Expiration Date Visits Re quested Visits Authorized [id number] Closed 02/26/2022 03/28/2023 1 1 Encounter Details Date Type Department Care Team (Late st Contact Info) Description 02/26/2022 Orders Only [facility] Oncology [address] [place] [address] Eren Cr MD [address] [facility] [address] [place] [address] Neuroendocrine carcinoma (CMS/HCC) (HCC) (Primary Dx); Malignant [...] on file 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 ??For reference segment 7 lesion (-[id number]) measures 2.3 x 1.9 cm, unchanged segment [...] hepatic metastases. For reference segment 7 lesion (-[id number]) measures 2.3 x 1.9 cm, unchanged segment [...] disease. Electronically signed by: Sergio Flores M.D. Eren Cr MD IMG CT PROCEDURES [...] marrow documented in this encounter Care Teams Metal Molder Relationship Specialty Start Date End Date Julio César Briseno MD PCP - General 10/01/16 Eren Cr MD Referring Physician Medical Oncology 11/25/18 Yohana Bowen MD Radiation Oncologist Radiation Oncology 11/25/18 documented as of this encounter
--- OUTSIDE RECORDS SUMMARY | 2024-06-25 22:20 | XMS_ITS | Encounter Summary ---
Author Organization [facility] Address [address] [place] [address] Phone Care Team Providers Care Anodizer Name Role Phone Julio César Briseno MD Primary Care Provider [phone] Eren Cr MD Unavailable [phone] Yohana Bowen MD Unavailable Encounter Details Date Type Department Care Team (Late st Contact Info) Description 02/07/2022 Orders Only [facility] Oncology [address] [facility] 7th [place] [address] [place] [address] Eren Cr MD [address] [facility] [address] [address] [place] [address] Dehydration (Primary Dx); Neuroendocrine carcinoma (CMS/HCC) (HCC) [...] on file 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
--- OUTSIDE RECORDS SUMMARY | 2024-06-25 22:20 | XMS_ITS | Encounter Summary ---
Author Organization [facility] Address [address] [place] [address] Phone Care Team Providers Care Cloth Worker Name Role Phone Julio César Briseno MD Primary Care Provider [phone] Eren Cr MD Unavailable [phone] Yohana Bowen MD Unavailable Encounter Details Date Type Department Care Team (Late st Contact Info) Description 02/22/2022 Orders Only [facility] Oncology [address] [place] [address] Eren Cr MD [address] [facility] [address] [place], [place] [id number] 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) Social History Tobacco Use Types [...] on file 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 Gender Identity Not on file Sexual Orientation Straight 02/19/2021 9: 29 AM CDT Occupation Industry Job Start Date Job End Date retired Not on file Not on file Not on file documented as of this encounter Plan of Treatment Not on file documented as of this encounter Visit Diagnoses Diagnosis Hypothyroidism due to medication- Primary documented in this encounter Care Teams Cloth Worker Relationship Specialty Start Date End Date Julio César Briseno MD PCP - General 10/01/16 Eren Cr MD Referring Physician Medical Oncology 11/25/18 Yohana Bowen MD Radiation Oncologist Radiation Oncology 11/25/18 documented as of this encounter
--- OUTSIDE RECORDS SUMMARY | 2024-06-25 22:20 | XMS_ITS | Encounter Summary ---
Author Organization [facility] Healthcare Address [address] [place] [address] Care Team Providers Care Floatlight Loading Supervisor Name Role Phone Julio César Briseno MD Primary Care Provider Eren Cr MD Unavailable [phone] Yohana Bowen MD Unavailable Reason for Visit * Reason Comments OP Infusion Normal saline infusi on - 1 liter Encounter Details Date Type Department Care Team (Latest Contact Info) Description 02/14/2022 8:17 AM CDT - 02/14/2022 11:59 PM CDT Hospital Encounter [facility] Care Clinic [facility] Advanced [facility] ([facility]) [address] [place] [id number] Dehydration (Primary Dx); Neuroendocrine carcinoma (CMS/HCC) (HCC) Discharge Disposition: Discharge [...] file 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 Gender Identity Not on file Sexual Orientation Straight 02/19/2021 9: 29 AM CDT Occupation Industry Job Start Date Job End Date retired Not on file Not on file Not on file documented as of this encounter Last Filed Vital Signs Vital Sign Reading Time Taken Comments Blood Pressure 151/59 02/14/2022 8:20 AM CDT Pulse 67 02/14/2022 8:20 AM CDT Temperature 36.5 ??C (97.7 ??F) 02/14/2022 8:20 AM CD T Respiratory Rate 18 02/14/2022 8:20 AM CDT Oxygen Saturation 100% 02/14/2022 8:20 AM CDT Inhaled Oxygen Concentration - - [...] capsuleIndications :supplement Take 1 tablet by mouth compounder helper before breakfast 07/04/2016 4 cholecalciferol (VITAMIN D-3) 2,000 unit capsule Take 1 capsule (2,000 Units total) by mouth daily 30 capsule 2 04/25/2019 3 cholestyramine (QUESTRAN) 4 gram packet Take 1 packet by mouth 3 (three) times a day with meals 270 packet 3 09/04/2019 2 clotrimazole-betam ethasone (LOTRISONE) cream Apply 1 Application topically daily as needed (rash) 4 coenzyme B80-eywnour E 100-5 mg-unit capsuleIndications :supplement Take 1 tablet by mouth compounder helper before breakfast 4 diphenoxylate-atro pine (LOMOTIL) 2.5-0.025 [...] and 1 hour after each dose).?? Avoid [place]'s Wort, grapefruit products and [place] oranges while on treatment. placed on hold 09/26/22 for covid 01/29/2022 4 levothyroxine (Synthroid) 75 mcg tabletIndications: Hypothyroidism due to medication Take 1 tablet (75 mcg total) by mouth compounder helper before breakfast 30 tablet 3 11/16/2021 2 levothyroxine (SYNTHROID) 75 mcg tabletIndications: Hypothyroidism due to medication TAKE 1 TABLET (75 MCG TOTAL) BY MOUTH VERIFICATION REP BEFORE BREAKFAST 90 tablet 1 02/22/2022 2 [...] in this encounter Nursing Notes * Callie Robles RN - 02/14/2022 8:30 AM CDT Oncology Nursing Note [facility] La Chung is a 71 y.o. female who presents for fluids. Pre-treatment Nursing Assessment Nursing Assessment Appetite: Fair Diarrhea: Yes (unchanged - colostomy in place) Constipation: No Last BM Date: 02/14/22 (colostomy) Existing Patients: Any falls since your last visit?: No New Patients: Any falls since your last visit?: N/A Fatigue: Occassional Mouth Sores: No Nausea/Vomiting: No Pain: No Peripheral Neuropathy: No Pt states has potential to be ?: No Shortness of Breath?: No Lungs auscultated PRN: No Pt is on oxygen?: No Skin Condition/Temp: Warm, Dry Oral Mucosa Grade: Normal (0) Abdomen: Other (see comments) (colostomy in place) Swelling: No Additional Notes: n/a BP: 151/59 Temp: 36.5 ??C (97.7 ??F) Temp src: Oral Pulse: 67 Resp: 18 SpO2: 100 % Pain Score: 0 - No pain Treatment Patient: does not require labs today. Pre blood return: Sluggish La Chung tolerated treatment well. Patient was frequently observed and monitored throughout the administration of their treatment. Additional Notes: n/a Post blood return: Sluggish IV access post infusion: Heparin 100 units/mL Patient Education Treatment Education: Information/teaching given to [...] Once as needed, line care, Starting on Sat02/14/22 at 0859, Flush when all medication administered and labs completed for the day.Indications:Neuroendocri ne carcinoma (HCC) Given 02/14/2022 10:51 AM CDT 500 Units sodium chloride 0.9% bolus 1,000 mL 1,000 mL, intravenous, at 500 mL/hr, Administer over 2 Hours, Once, On Sat02/14/22 at 0910, For 1 doseIndications:Neuroendocri ne carcinoma (HCC) New Bag 02/14/2022 8:48 AM CDT 1,000 mL 500 mL/hr documented in this encounter Orders Medications Ordered That Brett ht Not Have Been Administered Count Last Ordered Date First Ordered Date heparin 10 unit/mL flush 30 Units 1 022 sodium chloride 0.9% flush 10 mL 1 02/15/20 22 Nursing Count Last Ordered Date First Orde red Date CENTRAL LINE DRESSING 1 02/14/2022 Appointment Requests Count Last Ordered Date Fi rst Ordered Date ONCBCN INFUSION APPT REQUEST 1 02/14/2022 documented in this encounter Care Teams Floatlight Loading Supervisor Relationship Specialty Start Date End Date Julio César Briseno MD PCP - General 10/01/16 Eren Cr MD Referring Physician Medical Oncology 11/25/18 Yohana Bowen MD Radiation Oncologist Radiation Oncology 11/25/18 documented as of this encounter
--- OUTSIDE RECORDS SUMMARY | 2024-06-25 22:20 | XMS_ITS | Encounter Summary ---
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) Procedures [place] OCTREOTIDE INJECTION, DEPOT Octreotide 28 Day Cycles - Carcinoid Eren Cr MD [address] [facility] [address] [place] [address] Phone: tel: fax: [address] [address] Phone: tel: fax: Referral ID Status Reason Start Date Expiration Date V isits Requested Visits Authorized [id number] Authorized 11/28/2017 02/05/2025 1 150 Encounter Details Date Type Department Care Team (Late st Contact Info) Description 02/22/2022 1:45 PM CDT Infusion [facility] Oncology [address] [place] [address] Neuroendocrine carcinoma (CMS/HCC) (HCC); Malignant neoplasm metastatic [...] on file 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
--- OUTSIDE RECORDS SUMMARY | 2024-06-25 22:20 | XMS_ITS | Encounter Summary ---
Author Organization [facility] Address [address] [place] [address] Phone Care Team Providers Care Health Service Worker Name Role Phone Julio César Briseno MD Primary Care Provider [phone] Eren Cr MD Unavailable [phone] Yohana Bowen MD Unavailable Encounter Details Date Type Department Care Team (Late st Contact Info) Description 02/22/2022 Orders Only [facility] Oncology [address] [place] [address] Eren Cr MD [address] [place], [place] [id number] Dehydration (Primary Dx); Neuroendocrine carcinoma (CMS/HCC) (HCC) [...] on file 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
--- OUTSIDE RECORDS SUMMARY | 2024-06-25 22:20 | XMS_ITS | Encounter Summary ---
Author Organization [facility] Address [address] [place] [address] Phone Care Team Providers Care Light Rail Operator Name Role Phone Julio César Briseno MD Primary Care Provider [phone] Eren Cr MD Unavailable [phone] Yohana Bowen MD Unavailable Reason for Visit * Reason Comments OP Infusion Encounter Details Date Type Department Care Team (Late st Contact Info) Description 03/08/2022 3:30 PM CDT Infusion [facility] Oncology [address] [facility] 7th [place] [id number] Dehydration (Primary Dx); Neuroendocrine carcinoma (CMS/HCC) (HCC); Hypophosphatemia; Colostomy complication, unspecified (HCC) Social History [...] on file 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 female who presents for the following injection: fluids. Nursing Assessment Nursing Assessment Appetite: Good Diarrhea: [...] Normal (0) Swelling: No Additional Notes: BP: 165/81 Temp: 36.8 ??C (98.2 ??F) Temp src: Temporal Pulse: 82 Resp: 18 SpO2: 97 % Height: 162.7 cm (5' 4.06 ) Weight: 76.6 kg (168 lb 14.4 oz) Patient: met treatment parameters La Chung tolerated injection well Additional Notes: Handoff report given to Nusrat VILLATORO. * Sunshine Marie RN - 03/08/2022 3:30 PM CDT Oncology Nursing Note [facility] Assumed care of La Chung for remainder of treatment on 03/08/2022. Treatment La Chung tolerated treatment well. Additional Notes: Withdrew activase in port at 1710, blood return brisk. Pt requested to take out PIV that was currently infusing IVF and switch over line to port. Port used for remainder of IVF. Post blood return: Brisk IV access post infusion: NS. Port de-accessed, gauze and tape applied. Discharge Plan Discharge instructions given to patient. Future appointments given and reviewed with treatment plan. Discharge Mode: Ambulatory Accompanied by: Self Discharged To: Home documented in this encounter Plan of Treatment Not on file documented as of this encounter Visit Diagnoses Diagnosis Dehydration- Primary Neuroendocrine carcinoma (HCC) Other malignant neoplasm of unspecified site Hypophosphatemia Disorders of phosphorus metabolism Colostomy complication, unspecified (HCC) documented in this encounter Administered Medications Inactive Administered Medications - up to 3 most recent administrations Medication Order MAR Action Action Date Dose Rate Site alteplase (CATHFLO ACTIVASE) injection 1 mg 1 mg, intra-catheter, Once, On Lydia 03/08/22 at 1645, For 1 dose, 60 to 120 minute dwell time. Reconstitute 2 mg vial with 2.2 mL SWFI. Resulting solution is ~1 mg/mL. DO NOT SHAKE., Indications: Colorectal CancerIndications:Colorecta l Cancer Given 03/08/2022 4:07 PM CDT 2 mg sodium chloride 0.9% bolus 1,000 mL 1,000 mL, intravenous, at 500 mL/hr, Administer over 2 Hours, Once, On Lydia 03/08/22 at 1645, For 1 doseIndications:Neuroendocr ine carcinoma (HCC) New Bag 03/08/2022 4:00 PM CDT 1,000 mL 500 mL/hr documented in this encounter Orders Medications Ordered That Brett ht Not Have Been Administered Count Last Ordered Date First Ordered Date sodium chloride 0.9% flush 10 mL 1 03/08/20 22 Appointment Requests Count Last Ordered Date Fi rst Ordered Date ONCBCN INFUSION APPT REQUEST 1 03/08/2022 documented in this encounter Care Teams Light Rail Operator Relationship Specialty Start Date End Date Julio César Briseno MD PCP - General 10/01/16 Eren Cr MD Referring Physician Medical Oncology 11/25/18 Yohana Bowen MD Radiation Oncologist Radiation Oncology 11/25/18 documented as of this encounter
--- OUTSIDE RECORDS SUMMARY | 2024-06-25 22:20 | XMS_ITS | Encounter Summary ---
Author Organization [facility] Address [address] [place] [address] Phone Care Team Providers Care Manufacturing Quality Technician Name Role Phone Julio César Briseno MD Primary Care Provider [phone] Eren Cr MD Unavailable [phone] Yohana Bowen MD Unavailable Reason for Visit * Episode Based Medications (Routine) - Closed Specialty Diagnoses / Procedures Referred By Evelyne bowman Referred To Contact Diagnoses Neuro-endocrine carcinoma (HCC) Procedures study [id number] phase III cabozantinib Eren Cr MD [address] [facility] [address] [place] [address] Phone: tel: fax: [facility] [address] [facility] 7th [place] [address] Phone: tel: Referral ID Status Reason Start Date Expiration Date Visits Re quested Visits Authorized [id number] Closed 06/21/2021 06/26/2024 1 99 Encounter Details Date Type Department Care Team (Late st Contact Info) Description 02/22/2022 11:15 AM CDT Office Visit [facility] Oncology [address] [place] [address] Eren Cr MD [address] 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 Gender Identity Not on file Sexual Orientation Straight 02/19/2021 9: 29 AM CDT Occupation Industry Job Start Date Job End Date retired Not on file Not on file Not on file documented as of this encounter Last Filed Vital Signs Vital Sign Reading Time Taken Comments Blood Pressure 158/80 02/22/2022 11:02 AM CDT Pulse 67 02/22/2022 11:02 AM CDT Temperature 36.2 ??C (97.2 ??F) 02/22/2022 11:02 AM C DT Respiratory Rate 16 02/22/2022 11:02 AM CDT Oxygen Saturation 94% 02/22/2022 11:02 AM CDT Inhaled Oxygen Concentration - - Weight 76.4 kg (168 lb 8 oz) 02/22/2022 11:02 AM CDT Height - - Body Mass Index 30.82 10/19/2021 4:00 PM CDT documented in this encounter Progress Notes * Eren Cr Jr., MD - 02/22/2022 11:15 AM CDT MEDICAL ONCOLOGY OUTPATIENT ROV NOTE DATE OF VISIT: 02/22/2022 DIAGNOSIS: well differentiated neuroendocrine tumor of ileum [...] from above-mentioned gastrointestinal masses (Krukenberg tumors) and lesslikely primary bilateral ovarian neoplasms. Tiny nodules in the omentum which could represent tumordeposits. 2. 07/2015 Colonoscopy ([facility]) - hemorrhoids, ileitis, and diverticulosis. 3. 10/03/2015 s/p exploratory laparotomy, bilateral salpingo-oophorectomy, partial omentectomy, andperitoneal biopsies by Dr. Jasbir Reeves. At the same time, she also underwent right colectomy in [facility] OR by Dr. Greyson Reeves. 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 4. 11/04/2015 MR A/P - Hepatic segment 7 lesion demonstrating mild T2 hyperintensity and diffusion restriction consistent with a metastatic focus. Enhancing nodules with diffusion restriction along the surface of the hepatic segment 6 consistent with serosal metastatic deposits. Nodular soft tissue enhancement along the left aspect of the vaginal cuff, suspicious for local recurrence 5. 11/04/2015 CT Chest - no evidence of metastatic disease in the chest 6. 11/04/2015 Octreotide scan - No evidence for somatostatin receptor positive tumor. 7. 11/07/2015 - Started on octreotide monthly injections 30 mg IM. S 8. 10/21/2017 CT - minimal increase in her lesions. 9. 04/21/2018 CT - Stable pulmonary nodules, hepatic lesions, perihepatic implants, and peritoneal deposits with unchanged retroperitoneal, right supraclavicular, and mediastinal lymphadenopathy consistent with stable metastatic disease. 10. 10/21/2018 MRI - multiple hepatic lesions of concern the prior examination are consistent with metastases. In addition to these, there are numerous additional left and right hemiliver metastases that were not visualized on the prior examination due to differences in modality. Omental deposits are consistent with metastases. 11. 11/19/18 Gallium dotatate PET - postsurgical changes of exploratory laparotomy and omentectomy with diffuse metastatic disease in the chest, abdomen, and pelvis, including a lesion in the proximal left humerus. 12. 11/24/2018, plan for PRRT due to disease progression on octreotide. 13. PRRT cycle 1 on 12/24/2018 14. PRRT cycle 2 on 02/18/2019 15. 03/23/19 CT C/A/P - stable disease. 16. PRRT cycle 3 06/10/2019 17. PRRT cycle 4 08/05/2019 18. 01/25/2020 Dotatate PET - increased size and intensity of uptake in a left humeral metastasis.New right C7 metastasis. Several liver lesions appear new, within the anterior superior left lobe. These sites are concerning for progression of disease. Decreased uptake and conspicuity of multiple bilateral lung nodules. 19. 08/01/2020 CT - no significant change in multiple serosal hepatic metastases and omental metastatic disease. Unchanged sclerotic lesion within the inferior right C7 articular facet likely representing metastasis given dotatate uptake. Stable right supraclavicular LN. 20. 08/15/2020 continue monthly Octreotide LAR injections 21. 12/27/2020 PET - progressive disease. Chromogranin A was rising 22. 01/30/2021 Start Afinitor 10 mg PO daily + monthly Octreotide. 23. 03/27/2021 discontinued Afinitor due to poor tolerance and symptomatic pneumonitis. 24. 05/15/2021 CT - interval decrease in peripheral and basilar predominant ground glass opacity/reticulation and peribronchial vascular thickening consistent with resolving infectious/inflammatory etiology such as previously suggested organizing pneumonia. No evidence of disease progression in thechest. 21. 06/15/2021 MR A/P - majority of [...] BP 158/80 (BP Location: Left arm) Pulse 67 Temp 36.2 ??C (97.2 ??F) (Temporal) Resp 16 Wt 76.4 kg (168 lb 8 oz) SpO2 94% BMI 30.82 kg/m?? GEN: Calm, conversant, well-appearing female in [...] exposed skin. . Minimal erythema. NEURO: A&Ox4, respiratory director grossly intact by conversation, moving all [...] aredisplayed. Labs - Hematology Latest Ref Range 01/15/22 01/16/22 01/29/22 02/22/22 WBC 3.8 - 9.9 K/cumm 4.0 3.1 (A) 3.2 (A) 3.9 Total Hb, POC 11.9 - 15.5 g/dL 13.0 12.2 11.0 (A) 11.0 (A) Hct 35.6 - 45.5 % 37.3 35.3 (A) 30.9 (A) 32.7 (A) Plt 150 - 400 K/cumm 115 (A) 107 (A) 88 (A) 98 (A) Neutrophil abs 1.7 - 6.5 K/cumm 2.3 1.9 1.8 2.7 Lymphocytes, abs 0.8 - 3.3 K/cumm 0.9 (A) 0.5 (A) 0.5 (A) 0.5 (A) (A) Abnormal value Comments are available for some flowsheets but are not being displayed. Chem/LFT Lab History Some values may be hidden. Unless noted otherwise, only the newest values recorded on each date aredisplayed. Labs-Chem/LFT Latest Ref Range 01/15/22 01/16/22 01/18/22 01/29/22 Sodium 135 - 145 mmol/L 135 136 138 139 Creatinine 0.60 - 1.10 mg/dL 1.96 (A) 1.84 (A) 1.70 (A) 0.97 Bilirubin, total 0.1 - 1.2 mg/dL 0.5 0.5 0.5 AST 10 - 45 Units/L 41 52 (A) 24 ALT 7 - 45 Units/L 31 38 16 CrCl- Actual Body Weight (Cockcroft-Gault) 30 32 34.6 62.7 (A) Abnormal value Comments are available for some flowsheets but are not being displayed. Tumor Marker History Some values may be hidden. Unless noted otherwise, only the newest values recorded on each date aredisplayed. Tumor Markers Latest Ref Range 11/13/21 12/11/21 01/15/22 01/29/22 Chromogranin A <93 ng/mL 653 (A) 773 (A) 1014 (A) 930 (A) (A) Abnormal value Comments are available for some flowsheets but are not being displayed. RADIOGRAPHIC/DIAGNOSTIC REVIEW: CT chest/abdomen/pelvis 02/02/2022: Stable metastatic disease in [...] today - CT 02/02/22 showed stable disease - I reviewed her labs today and they are adequate to proceed with cycle 8 of CABINET study. Will continue on 20 mg - Next set of scans per protocol. 2. Progressive focal circumferential thickening of the distal sigmoid colon per scan 01/2022 -she is not symptomatic from this and we discussed possible colonoscopy with her and her daughter 3. Thrombocytopenia: - Platelet 88K on 01/29/2022 4. Bone metastases: - Xgeva - Monitor Cr, Phos, and Calcium 5. Diarrhea - Increased ostomy output - Continue Lomotil and add Imodium as prescribed 6. TSH elevated - Continue synthroid 75 mcg daily 7. Vitamin D insufficiency/Deficiency: - Vitamin D 50 000 international units weekly All of??her and her 's??questions were answered to their satisfaction and they verbalized understanding. Dr. Eren Cr documented in this encounter Plan of Treatment Not on file documented as of this encounter Visit Diagnoses Diagnosis Neuro-endocrine carcinoma (HCC) Other malignant neoplasm of unspecified site documented in this encounter Orders Appointment Requests Count Last Ordered Date Fi rst Ordered Date ONCBCN CLINIC APPOINTMENT REQUEST 1 022 documented in this encounter Care Teams Manufacturing Quality Technician Relationship Specialty Start Date End Date Julio César Briseno MD PCP - General 10/01/16 Eren Cr MD Referring Physician Medical Oncology 11/25/18 Yohana Bowen MD Radiation Oncologist Radiation Oncology 11/25/18 documented as of this encounter
--- OUTSIDE RECORDS SUMMARY | 2024-06-25 22:20 | XMS_ITS | Encounter Summary ---
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 [address] [facility] 7th [place] [address] Phone: tel: Referral ID Status Reason Start Date Expiration Date V isits Requested Visits Authorized [id number] Authorized 03/02/2019 10/06/2024 1 60 Encounter Details Date Type Department Care Team (Late st Contact Info) Description 03/15/2022 4:00 PM CDT Infusion [facility] Oncology [facility] 7th [place] [address] Dehydration (Primary Dx); Neuroendocrine carcinoma (CMS/HCC) (HCC) [...] file 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 Gender Identity Not on file Sexual Orientation Straight 02/19/2021 9: 29 AM CDT Occupation Industry Job Start Date Job End Date retired Not on file Not on file Not on file documented as of this encounter Last Filed Vital Signs Vital Sign Reading Time Taken Comments Blood Pressure 153/80 03/15/2022 4:13 PM CDT Pulse 66 03/15/2022 4:13 PM CDT Temperature 36.5 ??C (97.7 ??F) 03/15/2022 4:13 PM CD T Respiratory Rate 20 03/15/2022 4:13 PM CDT Oxygen Saturation 98% 03/15/2022 4:13 PM CDT Inhaled Oxygen Concentration - - Weight - - Height - - Body Mass Index - - documented in this encounter Nursing Notes * Stephenie Floyd, [place] - 03/15/2022 4:00 PM CDT Oncology Nursing Note [facility] La Chung is a 71 y.o. female who presents for 1 Liter of Fluids. Pre-treatment Nursing Assessment Nursing Assessment Appetite: Good Diarrhea: No Constipation: No Last BM Date: 03/15/22 Existing Patients: Any falls since your last visit?: No New Patients: Any falls since your last visit?: N/A Fatigue: None Mouth Sores: No Nausea/Vomiting: No Neurological symptoms: No LOC: Awake Orientation: Oriented x4 Behavior: Calm Speech: Clear Language: No aphasia Vision: At baseline Pain: No Peripheral Neuropathy: No Pt states has potential to be ?: No Shortness of Breath?: No Lungs auscultated PRN: No Pt is on oxygen?: No Skin Condition/Temp: Warm, Dry Oral Mucosa Grade: Normal (0) Abdomen: Bowel sounds present x4, Soft Swelling: No Additional Notes: Charge Nurse Soniya Ayers moved pt to POD 6 for fluids over 2 hours. I clarifiedorders with her and the team. Pt was initiated with 1 Liter of fluids over 2 hours.Port accessed, with good blood return. Return treatments scheduled. BP: 153/80 Temp: 36.5 ??C (97.7 ??F) Temp src: Temporal Pulse: 66 Resp: 20 SpO2: 98 % Pain Score: 0 - No pain Treatment Patient: met treatment parameters Pre blood return: Brisk La Chung tolerated treatment well. Patient was frequently observed and monitored throughout the administration of their treatment. Additional Notes: Handoff report given to Pamela Sidhu RN. * Pamela Sidhu - 03/15/2022 4:00 PM CDT Oncology Nursing Note [facility] Assumed care of La Chung for remainder of treatment on 03/15/2022. Treatment La Chung tolerated treatment well. Additional Notes: Has return appts Post blood return: Brisk IV access post [...] as needed, line care, Starting on Lydia 03/15/22 at 1838, Flush when all medication administered and labs completed for the day.Indications:Dehydration,N euroendocrine carcinoma (HCC) Given 03/15/2022 6:39 PM CDT 500 Units sodium chloride 0.9% bolus 1,000 mL 1,000 mL, intravenous, at 500 mL/hr, Administer over 2 Hours, Once, On Lydia 03/15/22 at 1715, For 1 doseIndications:Dehydration,N euroendocrine carcinoma (HCC) New Bag 03/15/2022 4:40 PM CDT 1,000 mL 500 mL/hr sodium chloride 0.9% flush 10 mL 10 mL, intravenous, As needed, line care, Starting on Lydia 03/15/22 at 1838, Flush pre and post IV catheter use.Indications:Dehydration,N euroendocrine carcinoma (HCC) Given 03/15/2022 6:38 PM CDT 10 mL documented in this encounter Orders Medications Ordered That Brett ht Not Have Been Administered Count Last Ordered Date First Ordered Date sodium chloride 0.9% bolus 1,000 mL 1 03/15 Appointment Requests Count Last Ordered Date Fi rst Ordered Date ONCBCN INFUSION APPT REQUEST 1 03/15/2022 documented in this encounter Care Teams Piano Refinisher Relationship Specialty Start Date End Date Julio César Briseno MD PCP - General 10/01/16 Eren Cr MD Referring Physician Medical Oncology 11/25/18 Yohana Bowen MD Radiation Oncologist Radiation Oncology 11/25/18 documented as of this encounter
--- OUTSIDE RECORDS SUMMARY | 2024-06-25 22:20 | XMS_ITS | Encounter Summary ---
Author Organization [facility] Address [address] [place] [address] Phone Care Team Providers Care Cut Pressman Name Role Phone Julio César Briseno MD Primary Care Provider [phone] Eren Cr MD Unavailable [phone] Yohana Bowen MD Unavailable Reason for Visit * Reason Onset Date Comments request for IVF 02/02/2022 Encounter Details Date Type Department Care Team (Late st Contact Info) Description 02/02/2022 Telephone [facility] Oncology [address] [place] [address] Eren Cr MD [address] [place], [place] [id number] request for IVF Social History Tobacco Use Types Packs/Day Years [...] file 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 Patient c/o dizziness today, yesterday had a few episodes of emesis. Spoke with patient and she reports feeling dizzy, no fevers, no nausea or vomiting today. Patient is agreeable to IVF today [facility]. documented in this encounter Plan of Treatment Not on file documented as of this encounter Visit Diagnoses Not on filedocumented in this encounter Care Teams Cut Pressman Relationship Specialty Start Date End Date Julio César Briseno MD PCP - General 10/01/16 Eren Cr MD Referring Physician Medical Oncology 11/25/18 Yohana Bowen MD Radiation Oncologist Radiation Oncology 11/25/18 documented as of this encounter
--- OUTSIDE RECORDS SUMMARY | 2024-06-25 22:20 | XMS_ITS | Encounter Summary ---
Author Organization [facility] Address [address] [place] [address] Phone Care Team Providers Care Crystal Gazer Name Role Phone Julio César Briseno MD Primary Care Provider Eren Cr MD Unavailable [phone] Yohana Bowen MD Unavailable Encounter Details Date Type Department Care Team (Late st Contact Info) Description 02/01/2022 Orders Only [facility] Oncology [address] [facility] 7th [place] [address] [place] [address] Eren Cr MD [address] [facility] [address] [place] [address] Low phosphate levels (Primary Dx); Neuro-endocrine carcinoma (CMS/HCC) (HCC) Social [...] Frequency of Binge Drinking Not on file 08/1 08/2020 Comments No Sex and Gender Information Value Date Recorded Sex Assigned at Not on file 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 Gender Identity Not on file Sexual Orientation Straight 02/19/2021 9: 29 AM CDT Occupation Industry Job Start Date Job End Date retired Not on file Not on file Not on file documented as of this encounter Ordered Prescriptions Prescription Sig Dispense Quantity Refills Last Filled Start Date End Date potassium phosphate, monobasic, (K-PHOS) 500 mg (3.6 mmol of phosphorus) tabletIndications: Low phosphate levels,Neuro-endoc rine carcinoma (HCC) Take 1 tablet (500 mg total) by mouth 2 (two) times a day for 14 days 28 tablet 02/01/2022 02/15/2022 documented in this encounter Plan of Treatment Not on file documented as of this encounter Visit Diagnoses Diagnosis Low phosphate levels- Primary Disorders of phosphorus metabolism Neuro-endocrine carcinoma (HCC) Other malignant neoplasm of unspecified site documented in this encounter Care Teams Crystal Gazer Relationship Specialty Start Date End Date Julio César Briseno MD PCP - General 10/01/16 Eren Cr MD Referring Physician Medical Oncology 11/25/18 Yohana Bowen MD Radiation Oncologist Radiation Oncology 11/25/18 documented as of this encounter
--- OUTSIDE RECORDS SUMMARY | 2024-06-25 22:20 | XMS_ITS | Encounter Summary ---
Author Organization [facility] Address [address] [place] [address] Phone Care Team Providers Care Computer Systems Software Architect Name Role Phone Julio César Briseno MD Primary Care Provider [phone] Eren Cr MD Unavailable [phone] Yohana Bowen MD Unavailable Encounter Details Date Type Department Care Team (Late st Contact Info) Description 02/01/2022 Orders Only [facility] [address] 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 Gender Identity Not on file Sexual Orientation Straight 02/19/2021 9: 29 AM CDT Occupation Industry Job Start Date Job End Date retired Not on file Not on file Not on file documented as of this encounter Plan of Treatment Not on file documented as of this encounter Visit Diagnoses Not on filedocumented in this encounter Care Teams Computer Systems Software Architect Relationship Specialty Start Date End Date Julio César Briseno MD PCP - General 10/01/16 Eren Cr MD Referring Physician Medical Oncology 11/25/18 Yohana Bowen MD Radiation Oncologist Radiation Oncology 11/25/18 documented as of this encounter
--- OUTSIDE RECORDS SUMMARY | 2024-06-25 22:20 | XMS_ITS | Encounter Summary ---
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) Procedures CT chest abdomen pelvis with contrast Eren Cr MD [address] [place] [address] Phone: tel: fax: [facility] [address] [place] [address] Referral ID Status Reason Start Date Expiration Date Visits Re quested Visits Authorized [id number] Closed 01/29/2022 02/28/2023 1 1 Reason for Visit * MRI/CAT/PET Scan (Routine) - Closed Specialty Diagnoses / Procedures [facility] Referred To Contact Radiology Diagnoses 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) Procedures CT chest abdomen pelvis with contrast Eren Cr MD [id number] [place] [address] Phone: tel: fax: [facility] [address] [facility] [place] [address] Referral ID Status Reason Start Date Expiration Date Visits Re quested Visits Authorized [id number] Closed 01/29/2022 02/28/2023 1 1 Encounter Details Date Type Department Care Team (Latest Contact Info) Description 02/02/2022 3:49 PM CDT - 02/02/2022 4:29 PM CDT Hospital Encounter [facility] [address] [place] [address] Eren Cr MD [address] [facility] [address] [place] [address] Neuro-endocrine carcinoma (CMS/HCC) (HCC); Malignant neoplasm metastatic [...] on file Legal Sex 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 Gender Identity Not on file Sexual [...] capsuleIndications :supplement Take 1 tablet by mouth patient care associate before breakfast 07/04/2016 4 cholecalciferol (VITAMIN D-3) 2,000 unit capsule Take 1 capsule (2,000 Units total) by mouth daily 30 capsule 2 04/25/2019 3 cholestyramine (QUESTRAN) 4 gram packet Take 1 packet by mouth 3 (three) times a day with meals 270 packet 3 09/04/2019 2 clotrimazole-betam ethasone (LOTRISONE) cream Apply 1 Application topically daily as needed (rash) 4 coenzyme [id number] 100-5 mg-unit capsuleIndications :supplement Take 1 tablet by mouth patient care associate before breakfast 4 diphenoxylate-atro pine (LOMOTIL) 2.5-0.025 [...] or allergies 4 [id number] cabozantinib/place mariela (/A0216 [id number]) 20 mg tabletIndications: cancer study Take 1 tablet (20 mg total) by mouth nightly Take on an empty stomach (no food for 2 hours before and 1 hour after each dose).?? Avoid [place]'s Wort, grapefruit products and [place] oranges while on treatment. placed on hold 09/26/22 for covid 01/29/2022 4 levothyroxine (Synthroid) 75 mcg tabletIndications: Hypothyroidism due to medication Take 1 tablet (75 mcg total) by mouth patient care associate before breakfast 30 tablet 3 11/16/2021 2 [...] CONTRAST Schedule Routine, Read Routine (OP Routine) 02/02/2022 4:42 PM CDT Neuro-endocrine carcinoma (CMS/HCC) (HCC) 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) documented in this encounter Results * CT chest abdomen pelvis with contrast (02/02/2022 4:42 PM CDT) Anatomical Region Laterality Modality Body N/A Computed Tomogra phy 02/03/2022 9:23 AM CDT Impressions 02/03/2022 2:12 PM CDT 1. ??Stable metastatic disease in the abdomen and pelvis since 10/13/2021, characterized by multifocal hepatic metastases, multiple peritoneal deposits, retroperitoneal adenopathy, and vaginal cuff nodule. 2. ??Small soft tissue projection of a small bowel loop in the left lower quadrant is not well seen previously and is favored to represent a small bowel diverticulum given presence of additional small and large bowel diverticular disease, rather than a new peritoneal deposit. Attention on follow-up imaging is advised. 3. ??No evidence of metastatic disease within the chest. 4. ??Progressive focal circumferential thickening of the distal sigmoid colon may relate to incomplete distension versus neoplasm. Correlation with colonoscopy is recommended. Dictated by: Soniya Mccarthy D.O. The radiology attending physician has personally reviewed this study, and had reviewed and/or edited this written report and agrees with it. Electronically signed by: Manny Loya M.D., Ph.D Narrative 02/03/2022 2:12 PM CDT EXAMINATION: ??Computed tomography of the chest, abdomen and pelvis with intravenous contrast HISTORY: Metastatic neuroendocrine tumor of the ileum, suggestive response. TECHNIQUE: ??Transaxial computed tomographic images of the chest, abdomen and pelvis were obtained with intravenous contrast according to the standard protocol after the uneventful administration of 50 mL Opti-Ray 350 intravenous contrast. COMPARISON: CT examination dated 10/13/2021 FINDINGS: ?? Chest: Heart is normal in size. No pericardial effusion. Aberrant right subclavian artery incidentally noted. The aorta and pulmonary trunk are normal in caliber. A few nonspecific subcentimeter superior mediastinal and right supraclavicular lymph nodes are noted, similar to prior. No enlarged mediastinal or hilar nodes. No pulmonary masses or suspicious nodules. Minimal dependent subsegmental atelectasis. No pneumothorax or pneumonic consolidation. No pleural effusion. No suspicious osseous lesions. Abdomen/Pelvis: Scattered hypoenhancing hepatic metastases, at least 8, are similar in size when compared to examination dated 10/13/2021. A reference segment 2 lesion measures 2.1 x 1.8 cm, previously 2.0 x 2.3 cm. No new lesions. The gallbladder is surgically absent. Mild intrahepatic intrahepatic biliary dilatation is stable and likely related to postcholecystectomy state. The spleen, pancreas, and adrenal glands are unremarkable. There is a tiny epiphrenic esophageal diverticulum. The right kidney demonstrates a simple cyst. No hydronephrosis. The uterus is absent. The bladder is incompletely distended, limiting evaluation. Similar size of the enhancing nodule at the right vaginal cuff, measuring 2.0 x 2.0 cm. Redemonstrated urethral diverticulum with stones. There is progressive focal concentric wall thickening of the distal sigmoid colon with mucosal hyperenhancement (series 2 image 243). Sigmoid diverticulosis. Loop colostomy in the left lower quadrant. Postsurgical changes of right hemicolectomy and ileocolic anastomosis. No bowel obstruction. Redemonstrated large duodenal diverticulum with air-fluid level. A small fluid and air filled small bowel diverticulum in the lower abdomen (series 2 image 20). A small soft tissue projection along a left lower quadrant small bowel loop is noted and not seen previously, favored to represent an additional small bowel diverticulum. Focal peritoneal nodularity with tethering of adjacent small bowel loops is similar when compared to more remote examination dated 06/22/2021 (series 2 image 206). Ill-defined calcified peritoneal nodularity tethering of the sigmoid colon and adjacent small bowel loops is also similar (series 4 image 46). A 5 mm peritoneal deposit along the left anterior wall is stable. Additional stable 5 mm enhancing nodule in the left lower quadrant (series 2 image 195). Mild retroperitoneal adenopathy is stable, the largest node measuring 1.3 x 0.9 cm. No suspicious osseous lesions. Procedure Note Manny Loya MD PhD - 02/03/2022 EXAMINATION: Computed tomography of the chest, abdomen and pelvis with intravenous contrast HISTORY: Metastatic neuroendocrine tumor of the ileum, suggestive response. TECHNIQUE: Transaxial computed tomographic images of the chest, abdomen and pelvis were obtained with intravenous contrast according to the standard protocol after the uneventful administration of 50 mL Opti-Ray 350 intravenous contrast. COMPARISON: CT examination dated 10/13/2021 FINDINGS: Chest: Heart is normal in size. No pericardial effusion. Aberrant right subclavian artery incidentally noted. The aorta and pulmonary trunk are normal in caliber. A few nonspecific subcentimeter superior mediastinal and right supraclavicular lymph nodes are noted, similar to prior. No enlarged mediastinal or hilar nodes. No pulmonary masses or suspicious nodules. Minimal dependent subsegmental atelectasis. No pneumothorax or pneumonic consolidation. No pleural effusion. No suspicious osseous lesions. Abdomen/Pelvis: Scattered hypoenhancing hepatic metastases, at least 8, are similar in size when compared to examination dated 10/13/2021. A reference segment 2 lesion measures 2.1 x 1.8 cm, previously 2.0 x 2.3 cm. No new lesions. The gallbladder is surgically absent. Mild intrahepatic intrahepatic biliary dilatation is stable and likely related to postcholecystectomy state. The spleen, pancreas, and adrenal glands are unremarkable. There is a tiny epiphrenic esophageal diverticulum. The right kidney demonstrates a simple cyst. No hydronephrosis. The uterus is absent. The bladder is incompletely distended, limiting evaluation. Similar size of the enhancing nodule at the right vaginal cuff, measuring 2.0 x 2.0 cm. Redemonstrated urethral diverticulum with stones. There is progressive focal concentric wall thickening of the distal sigmoid colon with mucosal hyperenhancement (series 2 image 243). Sigmoid diverticulosis. Loop colostomy in the left lower quadrant. Postsurgical changes of right hemicolectomy and ileocolic anastomosis. No bowel obstruction. Redemonstrated large duodenal diverticulum with air-fluid level. A small fluid and air filled small bowel diverticulum in the lower abdomen (series 2 image 20). A small soft tissue projection along a left lower quadrant small bowel loop is noted and not seen previously, favored to represent an additional small bowel diverticulum. Focal peritoneal nodularity with tethering of adjacent small bowel loops is similar when compared to more remote examination dated 06/22/2021 (series 2 image 206). Ill-defined calcified peritoneal nodularity tethering of the sigmoid colon and adjacent small bowel loops is also similar (series 4 image 46). A 5 mm peritoneal deposit along the left anterior wall is stable. Additional stable 5 mm enhancing nodule in the left lower quadrant (series 2 image 195). Mild retroperitoneal adenopathy is stable, the largest node measuring 1.3 x 0.9 cm. No suspicious osseous lesions. IMPRESSION: 1. Stable metastatic disease in the [...] versus neoplasm. Correlation with colonoscopy is recommended. Dictated by: Soniya Mccarthy D.O. The radiology attending physician has personally reviewed this study, and had reviewed and/or edited this written report and agrees with it. 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) documented in this encounter Administered Medications Inactive Administered Medications - up to 3 most recent administrations Medication Order MAR Action Action Date Dose Rate Site ioversoL (OPTIRAY 350) injection 50 mL 50 mL, intravenous, Once in imaging, contrast, Starting on Sat02/02/22 at 1622, For 1 dose Contrast Given 02/02/2022 4:33 PM CDT 50 mL ioversoL (OPTIRAY 350) syringe 25 mL 25 mL, intravenous, Once in imaging, contrast, Starting on Sat02/02/22 at 1622, For 1 dose Contrast Given 02/02/2022 4:33 PM CDT 12 mL documented in this encounter Orders Medications Ordered That Brett ht Not Have Been Administered Count Last Ordered Date First Ordered Date heparin 100 unit/mL injection 500 Units 1 0 02/02/2022 documented in this encounter Care Teams Nursing Care Attendant Relationship Specialty Start Date End Date Julio César Briseno MD PCP - General 10/01/16 Eren Cr MD Referring Physician Medical Oncology 11/25/18 Yohana Bowen MD Radiation Oncologist Radiation Oncology 11/25/18 documented as of this encounter
--- OUTSIDE RECORDS SUMMARY | 2024-06-25 22:20 | XMS_ITS | Encounter Summary ---
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
--- OUTSIDE RECORDS SUMMARY | 2024-06-25 22:20 | XMS_ITS | Encounter Summary ---
Author Organization [facility] Healthcare Address [address] [place] [address] Care Team Providers Care Dude Ranch Manager Name Role Phone Julio César Briseno MD Primary Care Provider [phone] Eren Cr MD Unavailable [phone] Yohana Bowen MD Unavailable Reason for Visit * Reason Comments OP Infusion NS Encounter Details Date Type Department Care Team (Latest Contact Info) Description 02/07/2022 11:00 AM CDT - 02/07/2022 11:59 PM CDT Hospital Encounter [facility] ([facility]) [address] [place] [id number] Neuroendocrine carcinoma (CMS/HCC) (HCC) (Primary Dx) [...] on file Legal Sex Female 2:41 PM RELATIONS LIAISON Gender Identity Not on file Sexual Orientation Straight 02/19/2021 9: 29 AM CDT Occupation Industry Job Start Date Job End Date retired Not on file Not on file Not on file documented as of this encounter Last Filed Vital Signs Vital Sign Reading Time Taken Comments Blood Pressure 130/53 02/07/2022 11:09 AM CDT Pulse 57 02/07/2022 11:09 AM CDT Temperature 36.7 ??C (98.1 ??F) 02/07/2022 11:09 AM C DT Respiratory Rate 18 02/07/2022 11:09 AM CDT Oxygen Saturation 98% 02/07/2022 11:09 AM CDT Inhaled Oxygen Concentration - - [...] capsuleIndications :supplement Take 1 tablet by mouth waterproofer before breakfast 07/04/2016 4 cholecalciferol (VITAMIN D-3) 2,000 unit capsule Take 1 capsule (2,000 Units total) by mouth daily 30 capsule 2 04/25/2019 3 cholestyramine (QUESTRAN) 4 gram packet Take 1 packet by mouth 3 (three) times a day with meals 270 packet 3 09/04/2019 2 clotrimazole-betam ethasone (LOTRISONE) cream Apply 1 Application topically daily as needed (rash) 4 coenzyme [id number] E 100-5 mg-unit capsuleIndications :supplement Take 1 tablet by mouth waterproofer before breakfast 4 diphenoxylate-atro pine (LOMOTIL) 2.5-0.025 [...] dose).?? Avoid Jas's Wort, grapefruit products and [place] oranges while on treatment. placed on hold 09/26/22 for covid 01/29/2022 4 levothyroxine (Synthroid) 75 mcg tabletIndications: Hypothyroidism due to medication Take 1 tablet (75 mcg total) by mouth waterproofer before breakfast 30 tablet 3 11/16/2021 2 [...] documented in this encounter Nursing Notes * Lynsey Renee RN - 02/07/2022 11:00 AM CDT Patient arrived to [facility] for IVF. Plan of care reviewed with patient and she verbalized understanding. PAC accessed. IVF infused tolerated well. Ppatient verbalized understanding of d/c plan of care. PAC flushed with heparin and deaccessed. Patient discharged home in stable condition. documented in this encounter [...] Once as needed, line care, Starting on Sat02/07/22 at 1107, Flush when all medication administered and labs completed for the day.Indications:Neuroendocri ne carcinoma (HCC) Given 02/07/2022 1:36 PM CDT 500 Units sodium chloride 0.9% bolus 1,000 mL 1,000 mL, intravenous, at 500 mL/hr, Administer over 2 Hours, Once, On Sat02/07/22 at 1140, For 1 doseIndications:Neuroendocri ne carcinoma (HCC) New Bag 02/07/2022 12:00 PM CDT 1,000 mL 500 mL/hr documented in this encounter Care Teams Dude Ranch Manager Relationship Specialty Start Date End Date Julio César Briseno MD PCP - General 10/01/16 Eren Cr MD Referring Physician Medical Oncology 11/25/18 Yohana Bowen MD Radiation Oncologist Radiation Oncology 11/25/18 documented as of this encounter
--- OUTSIDE RECORDS SUMMARY | 2024-06-25 22:20 | XMS_ITS | Encounter Summary ---
Author Organization [facility] Address [address] [place] [address] Phone Care Team Providers Care Mechanical Maintenance Supervisor Name Role Phone Julio César Briseno MD Primary Care Provider Eren Cr MD Unavailable [phone] Yohana Bowen MD Unavailable Encounter Details Date Type Department Care Team (Late st Contact Info) Description 02/22/2022 Orders Only [facility] Oncology [address] [place] [address] Eren Cr MD [address] [place] [address] Neuro-endocrine carcinoma (CMS/HCC) (HCC) (Primary [...] file 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 Comment: Impaired renal or hepatic function or treatment with proton pump inhibitors may result in artifactual elevations of Chromogranin A. ADDITIONAL INFORMATION This test was developed and its performance characteristics determined by [facility] in a manner consistent with [...] a homogeneous time-resolved immunofluorescent assay manufactured by [employer] and performed on the [employer] Kryptor Compact Plus. ? Values obtained with different assay methods or kits may be different and cannot be used interchangeably. ? Test results cannot be interpreted as absolute evidence for the presence or absence of malignant disease. Test Performed by: [facility] - [address] [address] Ultrasound Technician: Immanuel Novak M.D. Ph.D.; CLIA# [id number] Blood 03/22/2022 9:53 AM CDT 03/22/2022 11:54 AM CDT us Eren Cr MD LAB BLOOD ORDERABLES Final Re sult [facility] Department [place] [address] * (ABNORMAL) Comprehensive metabolic panel (03/22/2022 9:53 AM CDT) Sodium 139 135 - 145 mmol/L [facility] Comment:Testing performed by : [facility], [address] [place] [address] Potassium, pl 4.3 3.3 - 4.9 mmol/L [facility] Chloride 111(H) 97 - 110 mmol/L [facility] CO2 24 22 - 32 mmol/L [facility] Anion gap 4 2 - 15 mmol/L [facility] BUN 12 8 - 25 mg/dL [facility] Creatinine 1.20(H) 0.60 - 1.10 mg/dL [facility] Glucose 126 70 - 199 mg/dL [facility] Comment: Interpretive Data Fasting glucose >/= 126 [...] 2017. Calcium 9.8 8.5 - 10.3 mg/dL [facility] Bilirubin, total 0.6 0.1 - 1.2 mg/dL [facility] Protein, pl 6.4(L) 6.5 - 8.5 g/dL [facility] Albumin 4.2 3.5 - 5.0 g/dL [facility] Alk phos 70 40 - 130 Units/L [facility] ALT 20 7 - 45 Units/L [facility] AST 29 10 - 45 Units/L [facility] Blood 03/22/2022 9:53 AM CDT 03/22/2022 9:55 AM CDT us Eren Cr MD LAB BLOOD ORDERABLES Final Re sult [facility] One [facility] Department [place] [address] * (ABNORMAL) CBC with auto differential (03/22/2022 9:53 AM CDT) [facility] WBC 3.0(L) 3.8 - 9.9 K/cumm [facility] Comment:Testing performed by : [address] [address] Hgb 11.4(L) 11.9 - 15.5 g/dL [facility] Comment:Testing performed by : [address] [address] Hct 35.0(L) 35.6 - 45.5 % [facility] Comment:Testing performed by : [address] [address] Plt 97(L) 150 - 400 K/cumm [facility] Comment:Testing performed by : [address] [address] MPV 10.3 9.1 - 12.3 fL [facility] RBC 3.48(L) 3.90 - 5.20 M/cumm [facility] MCV 100.6(H) 81.3 - 96.4 fL [facility] MCH 32.8 27.1 - 33.3 pg [facility] MCHC 32.6 32.3 - 35.7 g/dL [facility] RDW CV 14.4 11.1 - 14.9 % [facility] RDW SD 51.6(H) 35.7 - 48.1 fL [facility] NRBC abs 0.00 0.00 - 0.01 K/cumm [facility] Blood 03/22/2022 9:53 AM CDT 03/22/2022 9:55 AM CDT us Eren Cr MD LAB BLOOD ORDERABLES Final Re sult Performing Organization Address [facility] [place] [address] * (ABNORMAL) Vitamin D 25 hydroxy (03/22/2022 9:53 AM CDT) Pathologist [facility] Vitamin D 25-OH 23(L) 30 - 80 ng/mL [facility] Blood 03/22/2022 9:53 AM CDT 03/22/2022 11:25 AM CDT Eren Cr MD LAB BLOOD ORDERABLES Final Re sult Performing Organization Address [facility] Co de Phone Number [place], [place] [phone] * (ABNORMAL) Phosphorus (03/22/2022 9:53 AM CDT) [facility] Phosphorus, pl 1.8(L) 2.3 - 4.5 mg/dL [facility] Comment:Testing performed by : [address] [address] Blood 03/22/2022 9:53 AM CDT 03/22/2022 9:55 AM CDT Eren Cr MD LAB BLOOD ORDERABLES Final Re sult Performing Organization Address [facility] Co de Phone Number [place], [place] [phone] * (ABNORMAL) Lipid panel (03/22/2022 9:53 AM CDT) [facility] Cholesterol 165 30 - 199 mg/dL [facility] Comment: Interpretive Data Ages < or = [...] revised on 2018. Triglycerides 162(H) <=149 mg/dL [facility] Comment: Interpretive Data Ages < or = [...] revised on 2018. HDL 56 >=40 mg/dL [facility] Comment: Interpretive Data Ages < or = [...] on 2018. LDL, calculated 77 <=129 mg/dL [facility] Comment: Interpretive [...] revised on 2018. Non-HDL Cholesterol 109 mg/dL [facility] Comment: Interpretive [...] last revised on 2018. Chol/HDL ratio 3 [facility] Blood 03/22/2022 9:53 AM CDT 03/22/2022 11:25 AM CDT us Eren Cr MD LAB BLOOD ORDERABLES Final Re sult [facility] [place] [address] * Magnesium (03/22/2022 9:53 AM CDT) Pathologist [facility] Magnesium 1.5 1.4 - 2.5 mg/dL [facility] Comment:Testing performed by : [address] [address] Blood 03/22/2022 9:53 AM CDT 03/22/2022 9:55 AM CDT Eren Cr MD LAB BLOOD ORDERABLES Final Re sult Performing Organization Address [facility] [place] [address] * (ABNORMAL) Protein / creatinine ratio, urine, random (03/22/2022 9:50 AM CDT) Pathologist [facility] Protein, ur, quant 45.0 mg/dL [facility] Comment: Interpretive Data No reference range established. Current interpretive data was last revised 2018. Creatinine Ur 235.0 mg/dL [facility] Comment: Interpretive Data No reference range established. Current interpretive data was last revised 2018. 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) Neuroendocrine carcinoma (HCC) Other malignant neoplasm of unspecified site documented in this encounter Orders Appointment Requests Count Last Ordered Date Fi rst Ordered Date ONCBCN CLINIC APPOINTMENT REQUEST 2 022 ONCBCN INJECTION APPOINTMENT REQUEST 1 03/08 ONCBCN LAB APPOINTMENT 2 03/22/2022 ONCBCN TAKE HOME STUDY DRUG APPT 1 03/22/20 22 documented in this encounter Care Teams Mechanical Maintenance Supervisor Relationship Specialty Start Date End Date Julio César Briseno MD PCP - General 10/01/16 Eren Cr MD Referring Physician Medical Oncology 11/25/18 Yohana Bowen MD Radiation Oncologist Radiation Oncology 11/25/18 documented as of this encounter
--- OUTSIDE RECORDS SUMMARY | 2024-06-25 22:20 | XMS_ITS | Encounter Summary ---
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) Procedures NE OCTREOTIDE INJECTION, DEPOT Octreotide 28 Day Cycles - Carcinoid Eren Cr MD [address] [place] [address] Phone: tel: fax: [address] [address] Phone: tel: fax: Referral ID Status Reason Start Date Expiration Date V isits Requested Visits Authorized [id number] Authorized 11/28/2017 02/05/2025 1 150 Encounter Details Date Type Department Care Team (Late st Contact Info) Description 02/22/2022 1:15 PM CDT Infusion [facility] Oncology [address] [place] [address] Dehydration (Primary Dx); Neuroendocrine carcinoma (CMS/HCC) (HCC); Malignant neoplasm metastatic [...] on file 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 Pt also given Oxtreotide and Xgeva. Pt denies jaw pain, or recent/upcoming dental work. Pt nauseous while walking out, 8 mg of PO zofran given. Pt d/c with daughter in stable condition. Study drugs dispensed by Pharmacy. D/c home in stable condtion. documented in this encounter Plan of Treatment [...] mg 120 mg, subcutaneous, Once, On Lydia 02/22/22 at 1330, For 1 dose, Calcium level should be greater than 8 mg/dl Administer injection in upper arm, abdomen or upper thigh Refrigerate. Allow to stand 15 to 30 mins prior to useIndications:Bone metastasis,Neuro-endocri ne carcinoma (HCC) Given 02/22/2022 2:46 PM CDT 120 mg Right Lower Abdomen octreotide LAR (SandoSTATIN LAR) extended release intramuscular injection 30 mg 30 mg, intramuscular, Once, On Lydia 02/22/22 at 1330, For 1 dose, Refrigerate. For IM intragluteal administration only- alternate gluteal sites. Shake.Indications:Malign ant neoplasm metastatic to liver (HCC),Neuroendocrine carcinoma (HCC) Given 02/22/2022 2:45 PM CDT 30 mg Right Dorsogluteal/But tock ondansetron (ZOFRAN) tablet 8 mg 8 mg, oral, Once, On Lydia 02/22/22 at 1530, For 1 doseIndications:Bone metastasis,Neuro-endocri ne carcinoma (HCC) Given 02/22/2022 2:59 PM CDT 8 mg sodium chloride 0.9% bolus 1,000 mL 1,000 mL, intravenous, at 500 mL/hr, Administer over 2 Hours, Once, On Lydia 02/22/22 at 1315, For 1 doseIndications:Neuroend ocrine carcinoma (HCC) New Bag 02/22/2022 12:33 PM CDT 1,000 mL 500 mL/hr documented in this encounter Orders Nursing Count Last Ordered Date First Orde red Date ONCBCN NURSING COMMUNICATION [id number] 1 02/22 ONCBCN NURSING COMMUNICATION [id number] 1 0 02/22/2022 PHYSICIAN COMMUNICATION ORDER 1 02/22/2022 Appointment Requests Count Last Ordered Date Fi rst Ordered Date ONCBCN INFUSION APPT REQUEST 1 02/22/2022 documented in this encounter Care Teams Lead Net Software Developer Relationship Specialty Start Date End Date Julio César Briseno MD PCP - General 10/01/16 Eren Cr MD Referring Physician Medical Oncology 11/25/18 Yohana Bowen MD Radiation Oncologist Radiation Oncology 11/25/18 documented as of this encounter
--- OUTSIDE RECORDS SUMMARY | 2024-06-25 22:20 | XMS_ITS | Encounter Summary ---
Author Organization [facility] Address [address] [place] [address] Phone Care Team Providers Care Hand Ii Tube Bender Name Role Phone Julio César Briseno MD Primary Care Provider [phone] Eren Cr MD Unavailable [phone] Yohana Bowen MD Unavailable Reason for Visit * Episode Based Medications (Routine) - Closed Specialty Diagnoses / Procedures Referred By Evelyne bowman Referred To Contact Diagnoses Neuro-endocrine carcinoma (HCC) Procedures study [id number] phase III cabozantinib Eren Cr MD [address] [facility] [address] [place] [address] Phone: tel: fax: [facility] [address] [facility] 7th [place] [address] Phone: tel: Referral ID Status Reason Start Date Expiration Date Visits Re quested Visits Authorized [id number] Closed 06/21/2021 06/26/2024 1 99 Encounter Details Date Type Department Care Team (Latest Contact Info) Description 02/22/2022 12:15 PM CDT Research Med Pick-Up/CTRU Line Patrolman [facility] Oncology [address] [place] [address], [place] [address] Neuro-endocrine carcinoma (CMS/HCC) (HCC) (Primary Dx) Social [...] on file 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 Gender Identity Not on file Sexual [...] Date First Ordered Date [id number] cabozantinib/pl acebo (2018-02-122/[id number]) tablet 20 mg 1 02/22/2022 Nursing Count Last Ordered Date First Orde red Date ONCBCN STUDY COMMUNICATION 2 1 02/22/2022 ONCBCN TREATMENT PARAMETERS 1 1 02/22/2022 Appointment Requests Count Last Ordered Date Fi rst Ordered Date ONCBCN TAKE HOME STUDY DRUG APPT 1 02/23/20 22 documented in this encounter Care Teams Hand Ii Tube Bender Relationship Specialty Start Date End Date Julio César Briseno MD PCP - General 10/01/16 Eren Cr MD Referring Physician Medical Oncology 11/25/18 Yohana Bowen MD Radiation Oncologist Radiation Oncology 11/25/18 documented as of this encounter
--- OUTSIDE RECORDS SUMMARY | 2024-06-25 22:20 | XMS_ITS | Encounter Summary ---
Author Organization [facility] Address [address] [place] [address] Phone Care Team Providers Care Produce Manager Name Role Phone Julio César Briseno MD Primary Care Provider [phone] Eren Cr MD Unavailable [phone] Yohana Bowen MD Unavailable Encounter Details Date Type Department Care Team (Late st Contact Info) Description 02/06/2022 Orders Only [facility] Oncology [address] [place] [address] Eren Cr MD [address] [place], [place] [id number] Social History Tobacco Use Types Packs/Day Years [...] file 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
--- OUTSIDE RECORDS SUMMARY | 2024-06-25 22:20 | XMS_ITS | Encounter Summary ---
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 Gender Identity Not on file Sexual [...] capsuleIndications :supplement Take 1 tablet by mouth furniture crater before breakfast 07/04/2016 4 cholecalciferol (VITAMIN D-3) 2,000 unit capsule Take 1 capsule (2,000 Units total) by mouth daily 30 capsule 2 04/25/2019 3 cholestyramine (QUESTRAN) 4 gram packet Take 1 packet by mouth 3 (three) times a day with meals 270 packet 3 09/04/2019 2 clotrimazole-betam ethasone (LOTRISONE) cream Apply 1 Application topically daily as needed (rash) 4 coenzyme [id number] 100-5 mg-unit capsuleIndications :supplement Take 1 tablet by mouth furniture crater before breakfast 4 diphenoxylate-atro pine (LOMOTIL) 2.5-0.025 [...] and 1 hour after each dose).?? Avoid [place]'s Wort, grapefruit products and [place] oranges while on treatment. placed on hold 09/26/22 for covid 01/29/2022 4 levothyroxine (SYNTHROID) 75 mcg tabletIndications: Hypothyroidism due to medication TAKE 1 TABLET (75 MCG TOTAL) BY MOUTH UTILIZATION COORDINATOR BEFORE BREAKFAST 90 tablet 1 02/22/2022 2 [...] Priority Date/Time Associated Diagnosis Comments EGFR STAT 02/22/2022 10:55 AM CDT 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) DIFFERENTIAL AUTO Routine 02/22/2022 10: 55 AM CDT 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) THYROID FUNCTION CASCADE Routine 02/22/2022 10:55 AM CDT CHROMOGRANIN A Routine 02/22/2022 10:55 AM CDT 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) CBC WITH AUTO DIFFERENTIAL Routine 02/22/2022 10:55 AM CDT 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) VITAMIN D 25 HYDROXY Routine 02/22/2022 10:55 AM CDT 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) T4, FREE Routine 02/22/2022 10:55 AM CDT PHOSPHORUS Routine 02/22/2022 10:55 AM CDT 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) MAGNESIUM STAT 02/22/2022 10:55 AM CDT Neuro-endocrine carcinoma (CMS/HCC) (HCC) LIPID PANEL Routine 02/22/2022 10:55 AM CDT 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) COMPREHENSIVE METABOLIC PANEL STAT 02/22/2022 10:55 AM CDT 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) documented in this encounter Results * T4, free (02/22/2022 10:55 AM CDT) Free T4 1.58 0.90 - 1.70 ng/dL [facility] Blood 02/22/2022 10:5 5 AM CDT 02/22/2022 12:41 PM CDT Narrative [facility] - 02/22/2022 1:35 PM CDT This test was reflexed from a TSH result. Eren Cr MD LAB BLOOD ORDERABLES Edited R esult - Final [facility] Department [place] [address] * (ABNORMAL) TSH reflex to free T4 (02/22/2022 10:55 AM CDT) Pathologist [facility] TSH 6.09(H) 0.30 - 4.20 mcIUnit/mL [facility] Blood 02/22/2022 10:5 5 AM CDT 02/22/2022 12:37 PM CDT Eren Cr MD LAB BLOOD ORDERABLES Final Re sult [facility] Department [place] [address] * (ABNORMAL) eGFR (02/22/2022 10:55 AM CDT) eGFR 52(L) 90 - 130 mL/min/1. 73 m2 [facility] [...] interpretive data was last reviewed 2021. Blood 02/22/2022 10:5 5 AM CDT 02/22/2022 10:57 AM CDT us Eren Cr MD LAB BLOOD ORDERABLES Final Re sult [facility] Department [place] [address] * (ABNORMAL) Differential, auto (02/22/2022 10:55 AM CDT) Neutrophil abs 2.7 1.7 - 6.5 K/cumm [facility] Comment:Testing performed by : [facility], [address] [place] [id number] Imm gran abs 0.0 0.0 - 0.1 K/cumm [facility] Lymphocyte abs 0.5(L) 0.8 - 3.3 K/cumm [facility] Monocyte abs 0.4 0.2 - 0.8 K/cumm [facility] Eosinophil abs 0.3 0.0 - 0.5 K/cumm [facility] Basophil abs 0.0 0.0 - 0.1 K/cumm [facility] Neutrophil pct 70.0 % [facility] Comment: Interpretive Data Percent cell count reference ranges are not reported, since discordance with absolute values may lead to misinterpretation of CBC data. Current Interpretive Data was last revised on 2017. Imm gran pct 0.3 % [facility] Comment: Interpretive Data Percent cell count reference ranges are not reported, since discordance with absolute values may lead to misinterpretation of CBC data. Current Interpretive Data was last revised on 2017. Lymphocyte pct 12.6 % [facility] Comment: Interpretive Data Percent cell count reference ranges are not reported, since discordance with absolute values may lead to misinterpretation of CBC data. Current Interpretive Data was last revised on 2017. Monocyte pct 9.7 % [facility] Comment: Interpretive Data Percent cell count reference ranges are not reported, since discordance with absolute values may lead to misinterpretation of CBC data. Current Interpretive Data was last revised on 2017. Eosinophil pct 7.1 % [facility] Comment: Interpretive Data Percent cell count reference ranges are not reported, since discordance with absolute values may lead to misinterpretation of CBC data. Current Interpretive Data was last revised on 2017. Basophil pct 0.3 % [facility] Comment: Interpretive Data Percent cell count reference ranges are not reported, since discordance with absolute values may lead to misinterpretation of CBC data. Current Interpretive Data was last revised on 2017. Blood 02/22/2022 10:5 5 AM CDT 02/22/2022 10:57 AM CDT us Eren Cr MD LAB BLOOD ORDERABLES Final Re sult [facility] Department [place] [address] * Magnesium (02/22/2022 10:55 AM CDT) Magnesium 1.7 1.4 - 2.5 mg/dL [facility] Comment:Testing performed by : [facility], [address] [place] [id number] Blood 02/22/2022 10:5 5 AM CDT 02/22/2022 10:57 AM CDT us Eren Cr MD LAB BLOOD ORDERABLES Final Re sult [facility] Department [place] [address] * (ABNORMAL) Lipid panel (02/22/2022 10:55 AM CDT) Cholesterol 174 30 - 199 mg/dL [facility] Comment: Interpretive Data Ages < or [...] Data was last revised on 2018. Triglycerides 217(H) <=149 mg/dL [facility] Comment: Interpretive Data Ages < or [...] revised on 2018. HDL 55 >=40 mg/dL [facility] Comment: Interpretive Data Ages < or [...] 2018. LDL, calculated 76 <=129 mg/dL [facility] Comment: Interpretive Data Ages < or [...] was last revised on 2018. Non-HDL Cholesterol 119 mg/dL [facility] Comment: Interpretive Data Ages < [...] last revised on 2018. Chol/HDL ratio 3 [facility] Blood 02/22/2022 10:5 5 AM CDT 02/22/2022 12:37 PM CDT Eren Cr MD LAB BLOOD ORDERABLES Final Re sult Performing Organization Address City/[facility]/ZIP Co de Phone Number [facility] Department [place] [address] * Phosphorus (02/22/2022 10:55 AM CDT) Phosphorus, pl 2.4 2.3 - 4.5 mg/dL [facility] Comment:Testing performed by : [facility], [address] [place] [id number] Blood 02/22/2022 10:5 5 AM CDT 02/22/2022 10:57 AM CDT Eren Cr MD LAB BLOOD ORDERABLES Final Re sult Performing Organization Address City/[facility] Co de Phone Number [facility] Department of Laboratories [place], [place] [id number] * (ABNORMAL) Vitamin D 25 hydroxy (02/22/2022 10:55 AM CDT) Pathologist [facility] Vitamin D 25-OH 26(L) 30 - 80 ng/mL [facility] Blood 02/22/2022 10:5 5 AM CDT 02/22/2022 12:37 PM CDT Eren Cr MD LAB BLOOD ORDERABLES Final Re sult [facility] Department [place] [address] * (ABNORMAL) CBC with auto differential (02/22/2022 10:55 AM CDT) [facility] WBC 3.9 3.8 - 9.9 K/cumm [facility] Comment:Testing performed by : [address] [address] Hgb 11.0(L) 11.9 - 15.5 g/dL [facility] Comment:Testing performed by : [address] [address] Hct 32.7(L) 35.6 - 45.5 % [facility] Comment:Testing performed by : [address] [address] Plt 98(L) 150 - 400 K/cumm [facility] Comment:Testing performed by : [address] [address] MPV 10.7 9.1 - 12.3 fL [facility] RBC 3.25(L) 3.90 - 5.20 M/cumm [facility] MCV 100.6(H) 81.3 - 96.4 fL [facility] MCH 33.8(H) 27.1 - 33.3 pg [facility] MCHC 33.6 32.3 - 35.7 g/dL [facility] RDW CV 13.6 11.1 - 14.9 % [facility] RDW SD 50.1(H) 35.7 - 48.1 fL [facility] NRBC abs 0.00 0.00 - 0.01 K/cumm [facility] Blood 02/22/2022 10:5 5 AM CDT 02/22/2022 10:57 AM CDT us Eren Cr MD LAB BLOOD ORDERABLES Final Re sult [facility] Department [place] [address] * (ABNORMAL) Comprehensive metabolic panel (02/22/2022 10:55 AM CDT) Sodium 143 135 - 145 mmol/L [facility] Comment:Testing performed by : [facility], [address] [place] [id number] Potassium, pl 4.2 3.3 - 4.9 mmol/L [facility] Chloride 109 97 - 110 mmol/L [facility] CO2 27 22 - 32 mmol/L [facility] Anion gap 7 2 - 15 mmol/L [facility] BUN 14 8 - 25 mg/dL [facility] Creatinine 1.12(H) 0.60 - 1.10 mg/dL [facility] Glucose 94 70 - 199 mg/dL [facility] Comment: Interpretive Data Fasting glucose [...] interpretive data was last revised 2017. Calcium 10.2 8.5 - 10.3 mg/dL [facility] Bilirubin, total 0.7 0.1 - 1.2 mg/dL [facility] Protein, pl 6.4(L) 6.5 - 8.5 g/dL [facility] Albumin 4.0 3.5 - 5.0 g/dL [facility] Alk phos 68 40 - 130 Units/L [facility] ALT 23 7 - 45 Units/L [facility] AST 33 10 - 45 Units/L [facility] Blood 02/22/2022 10:5 5 AM CDT 02/22/2022 10:57 AM CDT Eren Cr MD LAB BLOOD ORDERABLES Final Re sult [facility] Department [place] [address] * (ABNORMAL) Chromogranin A (02/22/2022 10:55 AM CDT) Chromogranin A 874(H) <93 ng/mL [facility] Comment: Impaired renal or hepatic function or treatment with proton pump inhibitors may result in artifactual elevations of Chromogranin A. ADDITIONAL INFORMATION This test was developed and its performance characteristics determined by [facility] in a manner consistent with CLIA [...] a homogeneous time-resolved immunofluorescent assay manufactured by [employer] and performed on the [employer] (formerly [employer]) Kryptor Compact Plus. ? Values obtained with different assay methods or kits may be different and cannot be used interchangeably. ? Test results cannot be interpreted as absolute evidence for the presence or absence of malignant disease. Test Performed by: [facility] - [address] [address] Art Consultant: Immanuel Novak M.D. Ph.D.; [facility]# [id number] Blood 02/22/2022 10:5 5 AM CDT 02/22/2022 1:20 PM CDT Eren Cr MD LAB BLOOD ORDERABLES Final Re sult [facility] Department [place] [address] documented in this encounter Visit Diagnoses Diagnosis Neuroendocrine carcinoma (HCC) Other malignant neoplasm of unspecified site Malignant neoplasm metastatic to liver (HCC) Neuro-endocrine carcinoma (HCC) Other malignant neoplasm of unspecified site documented in this encounter Care Teams Railroad Auditor Relationship Specialty Start Date End Date Julio César Briseno MD PCP - General 10/01/16 Eren Cr MD Referring Physician Medical Oncology 11/25/18 Yohana Bowen MD Radiation Oncologist Radiation Oncology 11/25/18 documented as of this encounter
--- OUTSIDE RECORDS SUMMARY | 2024-06-25 22:20 | XMS_ITS | Encounter Summary ---
Author Organization [facility] Address [address] [place] [address] Phone Care Team Providers Care Restaurant Assistant Name Role Phone Julio César Briseno MD Primary Care Provider Eren Cr MD Unavailable [phone] Yohana Bowen MD Unavailable Encounter Details Date Type Department Care Team (Late st Contact Info) Description 02/02/2022 Orders Only [facility] Oncology [address] 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
--- OUTSIDE RECORDS SUMMARY | 2024-06-25 22:21 | XMS_ITS | Encounter Summary ---
Author Organization [facility] Address [address] [place] [address] Phone Care Team Providers Care Stator Connector Name Role Phone Julio César Briseno MD Primary Care Provider [phone] Eren Cr MD Unavailable [phone] Yohana Bowen MD Unavailable Encounter Details Date Type Department Care Team (Late st Contact Info) Description 01/11/2022 Telephone [facility] Obstetrics and Gynecology [address] [facility] Advanced Medicine 13th [place] [address] [place] [address] Ana Guillen Social History Tobacco Use Types Packs/Day Years [...] on file 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 Gender Identity Not on file Sexual Orientation Straight 02/19/2021 9: 29 AM CDT Occupation Industry Job Start Date Job End Date retired Not on file Not on file Not on file documented as of this encounter Miscellaneous Notes * Telephone Encounter - Ana Guillen - 01/11/2022 10:17 AM CDT Left message and sent MyChart letter requesting call back to reschedule bumped Keke everett documented in this encounter Plan of Treatment Not on file documented as of this encounter Visit Diagnoses Not on filedocumented in this encounter Care Teams Stator Connector Relationship Specialty Start Date End Date Julio César Briseno MD PCP - General 10/01/16 Eren Cr MD Referring Physician Medical Oncology 11/25/18 Yohana Bowen MD Radiation Oncologist Radiation Oncology 11/25/18 documented as of this encounter
--- OUTSIDE RECORDS SUMMARY | 2024-06-25 22:21 | XMS_ITS | Encounter Summary ---
Author Organization [facility] Address [address] [place] [address] Phone Care Team Providers Care Medical Data Entry Clerk Name Role Phone Julio César Briseno MD Primary Care Provider [phone] Eren Cr MD Unavailable [phone] Yohana Bowen MD Unavailable Encounter Details Date Type Department Care Team (Late st Contact Info) Description 02/01/2022 Orders Only [facility] Oncology [address] [facility] Advanced Medicine 7th [place] [address] [place] [address] Eern Cr MD [address] [facility] [address] [place] [address] Neuro-endocrine carcinoma (CMS/HCC) (HCC) (Primary Dx); Elevated TSH Social History Tobacco Use Types Packs/Day [...] file 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 Gender Identity Not on file Sexual Orientation Straight 02/19/2021 9: 29 AM CDT Occupation Industry Job Start Date Job End Date retired Not on file Not on file Not on file documented as of this encounter Plan of Treatment Not on file documented as of this encounter Results * (ABNORMAL) T3, free (02/01/2022 2:10 PM CDT) Free T3 1.8(L) 2.0 - 4.4 pg/mL [facility] Blood 02/01/2022 2:10 PM CDT 02/01/2022 3:02 PM CDT Eren Cr MD LAB BLOOD ORDERABLES Final Re sult Performing Organization Address [facility] de Phone Number [facility] Department [place] [address] * (ABNORMAL) T4, free (02/01/2022 2:10 PM CDT) Free T4 0.85(L) 0.90 - 1.70 ng/dL [facility] Blood 02/01/2022 2:10 PM CDT 02/01/2022 3:02 PM CDT Eren Cr MD LAB BLOOD ORDERABLES Final Re sult Performing Organization Address City/[facility] de Phone Number [facility] [place] [address] documented in this encounter Visit Diagnoses Diagnosis Neuro-endocrine carcinoma (HCC)- Primary Other malignant neoplasm of unspecified site Elevated TSH Other abnormal blood chemistry documented in this encounter Care Teams Medical Data Entry Clerk Relationship Specialty Start Date End Date Julio César Briseno MD PCP - General 10/01/16 Eren Cr MD Referring Physician Medical Oncology 11/25/18 Yohana Bowen MD Radiation Oncologist Radiation Oncology 11/25/18 documented as of this encounter
--- OUTSIDE RECORDS SUMMARY | 2024-06-25 22:21 | XMS_ITS | Encounter Summary ---
Author Organization [facility] Healthcare Address [address] [place] [address] Care Team Providers Care Clinical Unit Coordinator Name Role Phone Julio César Briseno MD Primary Care Provider [phone] Eren Cr MD Unavailable [phone] Yohana Bowen MD Unavailable Encounter Details Date Type Department Care Team (Latest Contact Info) Description 01/15/2022 10:06 AM CDT - 01/15/2022 11:59 PM CDT Hospital Encounter [facility] [address] [place] [address] Neuroendocrine carcinoma (CMS/HCC) (HCC); Malignant neoplasm metastatic [...] file 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 Gender Identity Not on file Sexual [...] capsuleIndications :supplement Take 1 tablet by mouth price changer before breakfast 07/04/2016 4 cholecalciferol (VITAMIN D-3) 2,000 unit capsule Take 1 capsule (2,000 Units total) by mouth daily 30 capsule 2 04/25/2019 3 cholestyramine (QUESTRAN) 4 gram packet Take 1 packet by mouth 3 (three) times a day with meals 270 packet 3 09/04/2019 2 clotrimazole-betam ethasone (LOTRISONE) cream Apply 1 Application topically daily as needed (rash) 4 coenzyme [id number] 100-5 mg-unit capsuleIndications :supplement Take 1 tablet by mouth price changer before breakfast 4 diphenoxylate-atro pine (LOMOTIL) 2.5-0.025 [...] and 1 hour after each dose).?? Avoid Jsa's Wort, grapefruit products and [place] oranges while on treatment. 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) DIFFERENTIAL AUTO Routine 01/15/2022 12: 43 PM CDT 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) CBC WITH AUTO DIFFERENTIAL Routine 01/15/2022 12:43 PM CDT 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) VITAMIN D 25 HYDROXY Routine 01/15/2022 12:43 PM CDT 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) TSH Routine 01/15/2022 12:43 PM CDT Neuro-endocrine carcinoma (CMS/HCC) (HCC) PHOSPHORUS Routine 01/15/2022 12:43 PM CDT 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) MAGNESIUM STAT 01/15/2022 12:43 PM CDT Neuro-endocrine carcinoma (CMS/HCC) (HCC) LIPID PANEL Routine 01/15/2022 12:43 PM CDT 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 Current interpretive data was last revised 2018. Creatinine Ur 441.4 mg/dL [facility] Comment: Interpretive Data No reference range established. Current interpretive data was last revised 2018. Protein/creatinin e ratio 125.3 0.0 - 180.0 mg/g CR [facility] Urine 01/15/2022 12:5 2 PM CDT 01/15/2022 1:02 PM CDT Eren Cr MD LAB URINE ORDERABLES Final Re sult [facility] Department [place] [address] * (ABNORMAL) Chromogranin A (01/15/2022 12:44 PM CDT) Pathologist [facility] Chromogranin A 1014(H) <93 ng/mL [facility] Comment: Impaired renal or hepatic function or treatment with proton pump inhibitors may result in artifactual elevations of Chromogranin A. ADDITIONAL INFORMATION This test was developed and its performance characteristics determined by [facility] in a manner consistent with CLIA [...] a homogeneous time-resolved immunofluorescent assay manufactured by [employer] and performed on the [address]. ? Values obtained with different assay methods or kits may be different and cannot be used interchangeably. ? Test results cannot be interpreted as absolute evidence for the presence or absence of malignant disease. Test Performed by: [place] [address] Icu Rn: Immanuel Novak M.D. Ph.D.; CLIA# [id number] Blood 01/15/2022 12:4 4 PM CDT 01/15/2022 12:57 PM CDT Eren Cr MD LAB BLOOD ORDERABLES Final Re sult [facility] Department [place] [address] * (ABNORMAL) eGFR (01/15/2022 12:43 PM CDT) eGFR 27(L) 90 - 130 mL/min/1. 73 m2 [facility] Comment: Interpretive Data Reference Interval Normal [...] was last reviewed 2021. Testing performed by: [facility], [address] [place] [phone] Blood 01/15/2022 12:4 3 PM CDT 01/15/2022 12:46 PM CDT us Eren Cr MD LAB BLOOD ORDERABLES Final Re sult [facility] Department [place] [address] * (ABNORMAL) Differential, auto (01/15/2022 12:43 PM CDT) Neutrophil abs 2.3 1.8 - 6.6 K/cumm [facility] Comment:Testing performed by : [facility], [address] [place] [phone] Lymphocyte abs 0.9(L) 1.2 - 3.3 K/cumm [facility] Comment:Testing performed by : [facility], [address] [place] [phone] Monocyte abs 0.4 0.2 - 1.2 K/cumm [facility] Comment:Testing performed by : [facility], [address] [place] [phone] Eosinophil abs 0.4 0.0 - 0.5 K/cumm [facility] Comment:Testing performed by : [facility], [address] [place] [phone] Basophil abs 0.0 0.0 - 0.2 K/cumm [facility] Comment:Testing performed by : [facility], [address] [place] [phone] Neutrophil pct 57.4 % [facility] Comment: Interpretive Data Percent cell count reference ranges are not reported, since discordance with absolute values may lead to misinterpretation of CBC data. Current Interpretive Data was last revised on 2017. Testing performed by: [facility], [address] [place] [phone] Lymphocyte pct 21.4 % [facility] Comment: Interpretive Data Percent cell count reference ranges are not reported, since discordance with absolute values may lead to misinterpretation of CBC data. Current Interpretive Data was last revised on 2017. Testing performed by: [facility], [address] [place] [phone] Monocyte pct 11.0 % [facility] Comment:Testing performed by : [facility], [address] [place] [phone] Eosinophil pct 9.2 % [facility] Comment:Testing performed by : [facility], [address] [place] [phone] Basophil pct 1.0 % [facility] Comment:Testing performed by : [facility], [address] [place] [phone] Blood 01/15/2022 12:4 3 PM CDT 01/15/2022 12:46 PM CDT us Eren Cr MD LAB BLOOD ORDERABLES Final Re sult [facility] Department [place] [address] * Magnesium (01/15/2022 12:43 PM CDT) Magnesium 1.7 1.4 - 2.5 mg/dL [facility] Comment:Testing performed by : [facility], [address] [facility] [phone] Blood 01/15/2022 12:4 3 PM CDT 01/15/2022 12:46 PM CDT Eren Cr MD LAB BLOOD ORDERABLES Final Re sult Performing Organization Address [facility] Co de Phone Number [facility] [place] [address] * (ABNORMAL) TSH (01/15/2022 12:43 PM CDT) Thyroid Stimulating Hormone 9.39(H) 0.30 - 4.20 mcIUnit/mL [facility] Blood 01/15/2022 12:4 3 PM CDT 01/15/2022 1:09 PM CDT Eren Cr MD LAB BLOOD ORDERABLES Final Re sult Performing Organization Address [facility] de Phone Number [facility] [place] [address] * (ABNORMAL) Lipid panel (01/15/2022 12:43 PM CDT) Cholesterol 193 30 - 199 mg/dL [facility] Comment: Interpretive Data Ages [...] Data was last revised on 2018. Triglycerides 298(H) <=149 mg/dL [facility] Comment: Interpretive Data Ages [...] revised on 2018. HDL 49 >=40 mg/dL [facility] Comment: Interpretive Data Ages [...] was last revised on 2018. LDL, calculated 84 <=129 mg/dL [facility] Comment: Interpretive Data Ages [...] was last revised on 2018. Non-HDL Cholesterol 144 mg/dL [facility] Comment: Interpretive Data Ages < or [...] was last revised on 2018. Chol/HDL ratio 4 [facility] Blood 01/15/2022 12:4 3 PM CDT 01/15/2022 1:09 PM CDT us Eren Cr MD LAB BLOOD ORDERABLES Final Re sult [facility] Department [place] [address] * Phosphorus (01/15/2022 12:43 PM CDT) Phosphorus, pl 3.0 2.3 - 4.5 mg/dL [facility] Comment:Testing performed by : [facility], [address] [place] [phone] Blood 01/15/2022 12:4 3 PM CDT 01/15/2022 12:46 PM CDT Eren Cr MD LAB BLOOD ORDERABLES Final Re sult Performing Organization Address [facility]/ZIP Co de Phone Number [facility] [place] [address] * (ABNORMAL) Vitamin D 25 hydroxy (01/15/2022 12:43 PM CDT) Pathologist [facility] Vitamin D 25-OH 22(L) 30 - 80 ng/mL [facility] Blood 01/15/2022 12:4 3 PM CDT 01/15/2022 1:09 PM CDT Eren Cr MD LAB BLOOD ORDERABLES Final Re sult Performing Organization Address [facility] Co de Phone Number [facility] [place] [address] * (ABNORMAL) CBC with auto differential (01/15/2022 12:43 PM CDT) [facility] WBC 4.0 3.8 - 9.8 K/cumm [facility] Comment:Testing performed by : [facility], [address] [place] [phone] Hgb 13.0 12.1 - 15.1 g/dL [facility] Comment:Testing performed by : [facility], [address] [place] [phone] Hct 37.3 36.1 - 44.3 % [facility] Comment:Testing performed by : [facility], [address] [place] [phone] Plt 115(L) 140 - 440 K/cumm [facility] Comment:Testing performed by : [facility], [address] [place] [phone] MPV 9.0 6.8 - 10.4 fL [facility] Comment:Testing performed by : [facility], [address] [place] [phone] RBC 3.64(L) 3.90 - 5.00 M/cumm [facility] Comment:Testing performed by : [facility], [address] [place] [phone] MCV 102.6(H) 80.0 - 97.6 fL [facility] Comment:Testing performed by : [address] [address] MCH 35.7(H) 26.7 - 33.7 pg [facility] Comment:Testing performed by : [facility], [address] [place] [phone] MCHC 34.8 32.7 - 35.5 g/dL [facility] Comment:Testing performed by : [facility], [address] [place] [phone] RDW CV 13.0 11.8 - 14.6 % [facility] Comment:Testing performed by : [facility], [address] [place] [phone] NRBC abs 0.00 0.00 - 0.01 K/cumm [facility] Comment:Testing performed by : [address] [phone] Blood 01/15/2022 12:4 3 PM CDT 01/15/2022 12:46 PM CDT us Eren Cr MD LAB BLOOD ORDERABLES Final Re sult [facility] Department [place] [address] * (ABNORMAL) Comprehensive metabolic panel (01/15/2022 12:43 PM CDT) Sodium 135 135 - 145 mmol/L [facility] Comment:Testing performed by : [address] [phone] Potassium, pl 4.0 3.3 - 4.9 mmol/L [facility] Comment:Testing performed by : [facility], [address] [place] [phone] Chloride 104 97 - 110 mmol/L [facility] Comment:Testing performed by : [facility], [address] [place] [phone] CO2 23 22 - 32 mmol/L [facility] Comment:Testing performed by : [facility], [address] [place] [phone] Anion gap 8 2 - 15 mmol/L [facility] Comment:Testing performed by : [facility], [address] [place] [phone] BUN 32(H) 8 - 25 mg/dL [facility] Comment:Testing performed by : [facility], [address] [place] [phone] Creatinine 1.96(H) 0.60 - 1.10 mg/dL [facility] Comment:Testing performed by : [facility], [address] [place] [phone] Glucose 113 70 - 199 mg/dL [facility] Comment: [...] Current interpretive data was last revised 2017. Testing performed by: [facility], [address] [place] [phone] Calcium 10.4(H) 8.5 - 10.3 mg/dL [facility] Comment:Testing performed by : [facility], [address] [place] [phone] Bilirubin, total 0.5 0.1 - 1.2 mg/dL [facility] Comment:Testing performed by : [facility], [address] [place] [phone] Protein, pl 6.7 6.5 - 8.5 g/dL [facility] Comment:Testing performed by : [facility], [address] [place] [phone] Albumin 4.4 3.5 - 5.0 g/dL [facility] Comment:Testing performed by : [facility], [address] [place] [phone] Alk phos 105 40 - 130 Units/L [facility] Comment:Testing performed by : [facility], [address] [place] [phone] ALT 31 7 - 45 Units/L [facility] Comment:Testing performed by : [facility], [address] [place] [phone] AST 41 10 - 45 Units/L [facility] Comment:Testing performed by : [facility], [address] [place] [phone] Blood 01/15/2022 12:4 3 PM CDT 01/15/2022 12:46 PM CDT Eren Cr MD LAB BLOOD ORDERABLES Final Re sult [facility] Department of Laboratories [place], [place] [id number] documented in this encounter Visit Diagnoses Diagnosis Neuroendocrine carcinoma (HCC) Other malignant neoplasm of unspecified site Malignant neoplasm metastatic to liver (HCC) Neuro-endocrine carcinoma (HCC) Other malignant neoplasm of unspecified site documented in this encounter Care Teams Clinical Unit Coordinator Relationship Specialty Start Date End Date Julio César Briseno MD PCP - General 10/01/16 Eren Cr MD Referring Physician Medical Oncology 11/25/18 Yohana Bowen MD Radiation Oncologist Radiation Oncology 11/25/18 documented as of this encounter
--- OUTSIDE RECORDS SUMMARY | 2024-06-25 22:21 | XMS_ITS | Encounter Summary ---
Author Organization [facility] Address [address] [place] [address] Phone Care Team Providers Care Crane Engineer Name Role Phone Julio César Briseno MD Primary Care Provider Eren Cr MD Unavailable [phone] Yohana Bowen MD Unavailable Encounter Details Date Type Department Care Team (Late st Contact Info) Description 12/14/2021 Orders Only [facility] Oncology [address] [facility] Advanced [facility] 7th [place] [address] [place] [address] Eren Cr MD [address] [facility] [address] [place] [address] Social History Tobacco Use Types Packs/Day Years [...] on file 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
--- OUTSIDE RECORDS SUMMARY | 2024-06-25 22:21 | XMS_ITS | Encounter Summary ---
Author Organization [facility] Healthcare Address [address] [place] [address] Care Team Providers Care Marketing Sales Representative Name Role Phone Julio César Briseno MD Primary Care Provider [phone] Eren Cr MD Unavailable [phone] Yohana Bowen MD Unavailable Encounter Details Date Type Department Care Team (Latest Contact Info) Description 01/29/2022 11:52 AM CDT - 01/29/2022 11:59 PM CDT Hospital Encounter [facility] [address] [place] [address] Neuro-endocrine carcinoma (CMS/HCC) (HCC) Discharge Disposition: Discharge [...] on file 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 Gender Identity Not on file Sexual [...] capsuleIndications :supplement Take 1 tablet 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 07/04/2016 4 cholecalciferol (VITAMIN D-3) 2,000 unit capsule Take 1 capsule (2,000 Units total) by mouth daily 30 capsule 2 04/25/2019 3 cholestyramine (QUESTRAN) 4 gram packet Take 1 packet by mouth 3 (three) times a day with meals 270 packet 3 09/04/2019 2 clotrimazole-betam ethasone (LOTRISONE) cream Apply 1 Application topically daily as needed (rash) 4 coenzyme [id number] E 100-5 mg-unit capsuleIndications :supplement Take 1 tablet 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 Avoid Jas's Wort, grapefruit products and [place] oranges while on treatment. placed on hold 09/26/22 for covid 01/29/2022 4 levothyroxine (Synthroid) 75 mcg tabletIndications: Hypothyroidism due to medication Take 1 tablet (75 mcg total) 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 30 tablet 3 11/16/2021 2 [...] Priority Date/Time Associated Diagnosis Comments EGFR STAT 01/29/2022 12:40 PM CDT Neuro-endocrine carcinoma (CMS/HCC) (HCC) DIFFERENTIAL AUTO STAT 01/29/2022 12: 40 PM CDT Neuro-endocrine carcinoma (CMS/HCC) (HCC) CHROMOGRANIN A Routine 01/29/2022 12:40 PM CDT Neuro-endocrine carcinoma (CMS/HCC) (HCC) CBC WITH AUTO DIFFERENTIAL STAT 01/29/2022 12:40 PM CDT Neuro-endocrine carcinoma (CMS/HCC) (HCC) TSH Routine 01/29/2022 12:40 PM CDT Neuro-endocrine carcinoma (CMS/HCC) (HCC) PHOSPHORUS STAT 01/29/2022 12:40 PM CDT Neuro-endocrine carcinoma (CMS/HCC) (HCC) MAGNESIUM STAT 01/29/2022 12:40 PM CDT Neuro-endocrine carcinoma (CMS/HCC) (HCC) COMPREHENSIVE METABOLIC PANEL STAT 01/29/2022 12:40 PM CDT Neuro-endocrine carcinoma (CMS/HCC) (HCC) PROTEIN / CREATININE RATIO, URINE, RANDOM STAT 01/29/2022 12:28 PM CDT Neuro-endocrine carcinoma (CMS/HCC) (HCC) documented in this encounter Results * (ABNORMAL) eGFR (01/29/2022 12:40 PM CDT) eGFR 62(L) 90 - 130 mL/min/1. 73 m2 [facility] Comment: Interpretive Data Reference Interval Normal [...] last reviewed 2021. Testing performed by: [facility], [address] [place] [phone] Blood 01/29/2022 12:4 0 PM CDT 01/29/2022 12:43 PM CDT us Eren Cr MD LAB BLOOD ORDERABLES Final Re sult [facility] [place] [address] * (ABNORMAL) Differential, auto (01/29/2022 12:40 PM CDT) Neutrophil abs 1.8 1.8 - 6.6 K/cumm [facility] Comment:Testing performed by : [facility], [address] [place] [phone] Lymphocyte abs 0.5(L) 1.2 - 3.3 K/cumm [facility] Comment:Testing performed by : [facility], [address] [place] [phone] Monocyte abs 0.4 0.2 - 1.2 K/cumm [facility] Comment:Testing performed by : [facility], [address] [place] [phone] Eosinophil abs 0.4 0.0 - 0.5 K/cumm [facility] Comment:Testing performed by : [facility], [address] [place] [phone] Basophil abs 0.0 0.0 - 0.2 K/cumm [facility] Comment:Testing performed by : [facility], [address] [place] [phone] Neutrophil pct 57.0 % [facility] Comment: Interpretive Data Percent cell count reference ranges are not reported, since discordance with absolute values may lead to misinterpretation of CBC data. Current Interpretive Data was last revised on 2017. Testing performed by: [facility], [address] [place] [phone] Lymphocyte pct 16.9 % [facility] Comment: Interpretive Data Percent cell count reference ranges are not reported, since discordance with absolute values may lead to misinterpretation of CBC data. Current Interpretive Data was last revised on 2017. Testing performed by: [facility], [address] [place] [phone] Monocyte pct 13.4 % [facility] Comment:Testing performed by : [facility], [address] [place] [phone] Eosinophil pct 12.3 % [facility] Comment:Testing performed by : [facility], [address] [place] [phone] Basophil pct 0.4 % [facility] Comment:Testing performed by : [address] [phone] Blood 01/29/2022 12:4 0 PM CDT 01/29/2022 12:43 PM CDT Eren Cr MD LAB BLOOD ORDERABLES Final Re sult [facility] [place] [address] * (ABNORMAL) CBC with auto differential (01/29/2022 12:40 PM CDT) WBC 3.2(L) 3.8 - 9.8 K/cumm [facility] Comment:Testing performed by : [facility], [address] [place] [phone] Hgb 11.0(L) 12.1 - 15.1 g/dL [facility] Comment:Testing performed by : [address] [phone] Hct 30.9(L) 36.1 - 44.3 % [facility] Comment:Testing performed by : [place] [phone] Plt 88(L) 140 - 440 K/cumm [facility] Comment:Testing performed by : [address] [phone] MPV 8.1 6.8 - 10.4 fL [facility] Comment:Testing performed by : [address] [phone] RBC 3.00(L) 3.90 - 5.00 M/cumm [facility] Comment:Testing performed by : [address] [phone] MCV 102.9(H) 80.0 - 97.6 fL [facility] Comment:Testing performed by : [address] [address] MCH 36.6(H) 26.7 - 33.7 pg [facility] Comment:Testing performed by : [address] [address] MCHC 35.6(H) 32.7 - 35.5 g/dL [facility] Comment:Testing performed by : [address] [address] RDW CV 13.2 11.8 - 14.6 % [facility] Comment:Testing performed by : [facility], [address] [place] [phone] NRBC abs 0.00 0.00 - 0.01 K/cumm [facility] Comment:Testing performed by : [facility], [address] [place] [phone] Blood 01/29/2022 12:4 0 PM CDT 01/29/2022 12:43 PM CDT us Eren Cr MD LAB BLOOD ORDERABLES Final Re sult [facility] Department [place] [address] * (ABNORMAL) Comprehensive metabolic panel (01/29/2022 12:40 PM CDT) Sodium 139 135 - 145 mmol/L [facility] Comment:Testing performed by : [facility], [address] [place] [phone] Potassium, pl 3.9 3.3 - 4.9 mmol/L [facility] Comment:Testing performed by : [facility], [address] [place] [phone] Chloride 107 97 - 110 mmol/L [facility] Comment:Testing performed by : [facility], [address] [place] [phone] CO2 24 22 - 32 mmol/L [facility] Comment:Testing performed by : [facility], [address] [place] [phone] Anion gap 8 2 - 15 mmol/L [facility] Comment:Testing performed by : [facility], [address] [place] [phone] BUN 16 8 - 25 mg/dL [facility] Comment:Testing performed by : [facility], [address] [place] [phone] Creatinine 0.97 0.60 - 1.10 mg/dL [facility] Comment:Testing performed by : [facility], [address] [place] [phone] Glucose 129 70 - 199 mg/dL [facility] Comment: [...] last revised 2017. Testing performed by: [facility], [address] [place] [phone] Calcium 9.5 8.5 - 10.3 mg/dL [facility] Comment:Testing performed by : [address] [address] Bilirubin, total 0.5 0.1 - 1.2 mg/dL [facility] Comment:Testing performed by : [facility], [address] [place] [phone] Protein, pl 6.0(L) 6.5 - 8.5 g/dL [facility] Comment:Testing performed by : [address] [address] Albumin 4.1 3.5 - 5.0 g/dL [facility] Comment:Testing performed by : [address] [phone] Alk phos 74 40 - 130 Units/L [facility] Comment:Testing performed by : [place] [phone] ALT 16 7 - 45 Units/L [facility] Comment:Testing performed by : [address] [phone] AST 24 10 - 45 Units/L [facility] Comment:Testing performed by : [address] [phone] Blood 01/29/2022 12:4 0 PM CDT 01/29/2022 12:43 PM CDT Eren Cr MD LAB BLOOD ORDERABLES Final Re sult Performing Organization Address [facility] Co de Phone Number [facility] [place] [address] * (ABNORMAL) Magnesium (01/29/2022 12:40 PM CDT) Pathologist [facility] Magnesium 1.2(L) 1.4 - 2.5 mg/dL [facility] Comment:Testing performed by : [facility], [address] [place] [phone] Blood 01/29/2022 12:4 0 PM CDT 01/29/2022 12:43 PM CDT Eren Cr MD LAB BLOOD ORDERABLES Final Re sult Performing Organization Address [facility] de Phone Number [facility] Laboratories [place], [place] [id number] * (ABNORMAL) Phosphorus (01/29/2022 12:40 PM CDT) Pathologist [facility] Phosphorus, pl 1.6(L) 2.3 - 4.5 mg/dL [facility] Comment:Testing performed by : [facility], [address] [place] [phone] Blood 01/29/2022 12:4 0 PM CDT 01/29/2022 12:43 PM CDT Eren Cr MD LAB BLOOD ORDERABLES Final Re sult Performing Organization Address [facility] [place] [address] * (ABNORMAL) TSH (01/29/2022 12:40 PM CDT) Thyroid Stimulating Hormone 10.20(H) 0.30 - 4.20 mcIUnit/mL [facility] Blood 01/29/2022 12:4 0 PM CDT 01/29/2022 1:11 PM CDT us Eren Cr MD LAB BLOOD ORDERABLES Final Re sult [facility] [place] [address] * (ABNORMAL) Chromogranin A (01/29/2022 12:40 PM CDT) Chromogranin A 930(H) <93 ng/mL [facility] Comment: Impaired renal [...] a homogeneous time-resolved immunofluorescent assay manufactured by [employer] and performed on the [employer] Kryptor Compact Plus. ? Values obtained with different assay methods or kits may be different and cannot be used interchangeably. ? Test results cannot be interpreted as absolute evidence for the presence or absence of malignant disease. Test Performed by: [address] [address] Trauma Therapist: Immanuel Novak M.D. Ph.D.; CLIA# [id number] Blood 01/29/2022 12:4 0 PM CDT 01/29/2022 12:59 PM CDT Eren Cr MD LAB BLOOD ORDERABLES Final Re sult Performing Organization Address [facility] Co de Phone Number [facility] Department [place] [address] * Protein / creatinine ratio, urine, random (01/29/2022 12:28 PM CDT) Protein, ur, quant 23.7 mg/dL [facility] Comment: Interpretive Data No reference range established. Current interpretive data was last revised 2018. Creatinine Ur 208.4 mg/dL [facility] Comment: Interpretive Data No reference range established. Current interpretive data was last revised 2018. Protein/creatinin e ratio 113.7 0.0 - 180.0 mg/g CR [facility] Urine 01/29/2022 12:2 8 PM CDT 01/29/2022 3:15 PM CDT Eren Cr MD LAB URINE ORDERABLES Final Re sult Performing Organization Address [facility] Co de Phone Number [facility] [place] [address] documented in this encounter Visit Diagnoses Diagnosis Neuro-endocrine carcinoma (HCC) Other malignant neoplasm of unspecified site documented in this encounter Care Teams Marketing Sales Representative Relationship Specialty Start Date End Date Julio César Briseno MD PCP - General 10/01/16 Eren Cr MD Referring Physician Medical Oncology 11/25/18 Yohana Bowen MD Radiation Oncologist Radiation Oncology 11/25/18 documented as of this encounter
--- OUTSIDE RECORDS SUMMARY | 2024-06-25 22:21 | XMS_ITS | Encounter Summary ---
Author Organization [facility] Address [address] [place] [address] Phone Care Team Providers Care Addiction Psychiatrist Name Role Phone Julio César Briseno MD Primary Care Provider [phone] Eren Cr MD Unavailable [phone] Yohana Bowen MD Unavailable Reason for Visit * Episode Based Medications (Routine) - Closed Specialty Diagnoses / Procedures Referred By Evelyne bowman Referred To Contact Diagnoses Neuro-endocrine carcinoma (HCC) Procedures study [id number] phase III cabozantinib Eren Cr MD [address] [facility] [address] [place] [address] Phone: tel: fax: [facility] [address] 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
--- OUTSIDE RECORDS SUMMARY | 2024-06-25 22:21 | XMS_ITS | Encounter Summary ---
Author Organization [facility] Address [address] [place] [address] Phone Care Team Providers Care Senior Sharepoint Architect Name Role Phone Julio César Briseno MD Primary Care Provider [phone] Eren Cr MD Unavailable Yohana Bowen MD Unavailable Encounter Details Date Type Department Care Team (Late st Contact Info) Description 01/31/2022 Orders Only [facility] On[facility] [address] [facility] 7th [place] [address] [place] [address] Eren Cr MD [address] [facility] [address] [place] [address] Neuro-endocrine carcinoma (CMS/HCC) (HCC) (Primary Dx); Elevated [...] on file 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
--- OUTSIDE RECORDS SUMMARY | 2024-06-25 22:21 | XMS_ITS | Encounter Summary ---
Author Organization [facility] Address [address] [place] [address] Phone Care Team Providers Care Voip Network Engineer Name Role Phone Julio César Briseno MD Primary Care Provider [phone] Eren Cr MD Unavailable [phone] Yohana Bowen MD Unavailable Reason for Visit * Episode Based Medications (Routine) - Closed Specialty Diagnoses / Procedures Referred By Evelyne bowman Referred To Contact Diagnoses Neuro-endocrine carcinoma (HCC) Procedures study [id number] phase III cabozantinib Eren Cr MD [address] [facility] [address] [place] [address] Phone: tel: fax: [facility] [address] [facility] 7th [place] [address] Phone: tel: Referral ID Status Reason Start Date Expiration Date Visits Re quested Visits Authorized [id number] Closed 06/21/2021 06/26/2024 1 99 Encounter Details Date Type Department Care Team (Latest Contact Info) Description 01/15/2022 12:30 PM CDT Clinical Support 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 Gender Identity Not on file Sexual Orientation Straight 02/19/2021 9: 29 AM CDT Occupation Industry Job Start Date Job End Date retired Not on file Not on file Not on file documented as of this encounter Plan of Treatment Not on file documented as of this encounter Visit Diagnoses Diagnosis Neuro-endocrine carcinoma (HCC)- Primary Other malignant neoplasm of unspecified site Hypophosphatemia Disorders of phosphorus metabolism documented in this encounter Orders Medications Ordered That Brett ht Not Have Been Administered Count Last Ordered Date First Ordered Date heparin 100 unit/mL injection 500 Units 1 0 01/15/2022 sodium chloride 0.45% bolus 90 mL 1 022 sodium chloride 0.9% bolus 90 mL 1 01/16/20 22 sodium chloride 0.9% flush 10 mL 1 01/16/20 22 Appointment Requests Count Last Ordered Date Fi rst Ordered Date ONCBCN LAB APPOINTMENT 1 01/15/2022 documented in this encounter Care Teams Voip Network Engineer Relationship Specialty Start Date End Date Julio César Briseno MD PCP - General 10/01/16 Eren Cr MD Referring Physician Medical Oncology 11/25/18 Yohana Bowen MD Radiation Oncologist Radiation Oncology 11/25/18 documented as of this encounter
--- OUTSIDE RECORDS SUMMARY | 2024-06-25 22:21 | XMS_ITS | Encounter Summary ---
Author Organization [facility] Address [address] [place] [address] Phone Care Team Providers Care Hospice Admitting Clerk Name Role Phone Julio César Briseno MD Primary Care Provider [phone] Eren Cr MD Unavailable [phone] Yohana Bowen MD Unavailable Reason for Visit * Episode Based Medications (Routine) - Closed Specialty Diagnoses / Procedures Referred By Evelyne bowman Referred To Contact Diagnoses Neuro-endocrine carcinoma (HCC) Procedures study [id number] phase III cabozantinib Eren Cr MD [address] [facility] [address] [place] [address] Phone: tel: fax: [facility] and [facility] [address] [facility] 7th [place] [address] Phone: tel: Referral ID Status Reason Start Date Expiration Date Visits Re quested Visits Authorized [id number] Closed 06/21/2021 06/26/2024 1 99 Encounter Details Date Type Department Care Team (Late st Contact Info) Description 01/15/2022 3:00 PM CDT Infusion [facility] 7th [place] [address] Neuro-endocrine carcinoma (CMS/HCC) (HCC) Social History Tobacco [...] on file 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 Gender Identity Not on file Sexual Orientation Straight 02/19/2021 9: 29 AM CDT Occupation Industry Job Start Date Job End Date retired Not on file Not on file Not on file documented as of this encounter Nursing Notes * Brii Stevens RN - 01/15/2022 3:00 PM CDT See other enounter documented in this encounter Plan of Treatment Not on file documented as of this encounter Visit Diagnoses Diagnosis Neuro-endocrine carcinoma (HCC) Other malignant neoplasm of unspecified site documented in this encounter Orders Appointment Requests Count Last Ordered Date Fi rst Ordered Date ONCBCN TAKE HOME STUDY DRUG APPT 1 01/16/20 22 documented in this encounter Care Teams Hospice Admitting Clerk Relationship Specialty Start Date End Date Julio César Briseno MD PCP - General 10/01/16 Eren Cr MD Referring Physician Medical Oncology 11/25/18 Yohana Bowen MD Radiation Oncologist Radiation Oncology 11/25/18 documented as of this encounter
--- OUTSIDE RECORDS SUMMARY | 2024-06-25 22:21 | XMS_ITS | Encounter Summary ---
Author Organization [facility] Address [address] [place] [address] Phone Care Team Providers Care Manager Baby Name Role Phone Julio César Briseno MD Primary Care Provider Eren Cr MD Unavailable [phone] Yohana Bowen MD Unavailable Encounter Details Date Type Department Care Team (Late st Contact Info) Description 01/15/2022 Orders Only [facility] Oncology [address] [facility] 7th [place] [address] [place] [address] Eren Cr MD [address] 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 Gender Identity Not on file Sexual Orientation Straight 02/19/2021 9: 29 AM CDT Occupation Industry Job Start Date Job End Date retired Not on file Not on file Not on file documented as of this encounter Miscellaneous Notes * Addendum Note - Chiquis Rizzo - 01/15/2022 2:27 PM CDTAddended by: CHIQUIS RIZZO on: 01/16/2022 10:13 AM Modules accepted: Orders * Addendum Note - Chiquis Rizzo - 01/15/2022 2:27 PM CDTAddended by: CHIQUIS RIZZO on: 01/16/2022 10:14 AM Modules accepted: Orders documented in this encounter Plan of Treatment Not on file documented as of this encounter Results * (ABNORMAL) CBC with auto differential (01/16/2022 10:53 AM CDT) WBC 3.1(L) 3.8 - 9.8 K/cumm [facility] Comment:Testing performed by : [facility], [address] [place] [phone] Hgb 12.2 12.1 - 15.1 g/dL [facility] Comment:Testing performed by : [facility], [address] [place] [phone] Hct 35.3(L) 36.1 - 44.3 % [facility] Comment:Testing performed by : [facility], [address] [place] [phone] Plt 107(L) 140 - 440 K/cumm [facility] Comment:Testing performed by : [facility], [address] [place] [phone] MPV 9.0 6.8 - 10.4 fL [facility] Comment:Testing performed by : [facility], [address] [place] [phone] RBC 3.46(L) 3.90 - 5.00 M/cumm [facility] Comment:Testing performed by : [facility], [address] [place] [phone] MCV 102.0(H) 80.0 - 97.6 fL [facility] Comment:Testing performed by : [facility], [address] [place] [phone] MCH 35.4(H) 26.7 - 33.7 pg [facility] Comment:Testing performed by : [facility], [address] [place] [phone] MCHC 34.7 32.7 - 35.5 g/dL [facility] Comment:Testing performed by : [facility], [address] [place] [phone] RDW CV 12.6 11.8 - 14.6 % [facility] Comment:Testing performed by : [facility], [address] [place] [phone] NRBC abs 0.00 0.00 - 0.01 K/cumm [facility] Comment:Testing performed by : [facility], [address] [place] [phone] Blood 01/16/2022 10:5 3 AM CDT 01/16/2022 10:56 AM CDT Eren Cr MD LAB BLOOD ORDERABLES Final Re sult [facility] Department [place] [address] * Phosphorus (01/16/2022 10:53 AM CDT) Phosphorus, pl 2.6 2.3 - 4.5 mg/dL [facility] Comment:Testing performed by : [facility], [address] [place] [phone] Blood 01/16/2022 10:5 3 AM CDT 01/16/2022 10:56 AM CDT Eren Cr MD LAB BLOOD ORDERABLES Final Re sult [facility] Department [place] [address] documented in this encounter Visit Diagnoses Diagnosis Neuro-endocrine carcinoma (HCC)- Primary Other malignant neoplasm of unspecified site documented in this encounter Care Teams Manager Baby Relationship Specialty Start Date End Date Julio César Briseno MD PCP - General 10/01/16 Eren Cr MD Referring Physician Medical Oncology 11/25/18 Yohana Bowen MD Radiation Oncologist Radiation Oncology 11/25/18 documented as of this encounter
--- OUTSIDE RECORDS SUMMARY | 2024-06-25 22:21 | XMS_ITS | Encounter Summary ---
Author Organization [facility] Address [address] [place] [address] Care Team Providers Care Terminal Carman Name Role Phone Julio César Briseno MD Primary Care Provider [phone] Eren Cr MD Unavailable [phone] Yohana Bowen MD Unavailable Reason for Visit * Reason Comments OP Infusion Encounter Details Date Type Department Care Team (Latest Contact Info) Description 12/11/2021 2:05 PM CDT - 12/11/2021 11:59 PM CDT Hospital Encounter [facility] ([facility]) [address] [place] [address] Hypophosphatemia (Primary Dx); Hypertension, unspecified type Discharge Disposition: Discharge to [...] file 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 Gender Identity Not on file Sexual Orientation Straight 02/19/2021 9: 29 AM CDT Occupation Industry Job Start Date Job End Date retired Not on file Not on file Not on file documented as of this encounter Last Filed Vital Signs Vital Sign Reading Time Taken Comments Blood Pressure 173/69 12/11/2021 2:10 PM CDT Pulse 67 12/11/2021 2:10 PM CDT Temperature 36.6 ??C (97.9 ??F) 12/11/2021 2:10 PM CD T Respiratory Rate 18 12/11/2021 2:10 PM CDT Oxygen Saturation 99% 12/11/2021 2:10 PM CDT Inhaled Oxygen Concentration - - Weight - - Height - - Body Mass Index - - documented in this encounter Discharge Instructions * Patient Instructions* Saima Garcia RN - 12/11/2021 4:35 PM CDT .After 4:30 PM during the week, on weekends and holidays, call [phone] and ask to have the Cement Worker Physician paged for you. Saturday through Saturday, 8 AM to 4:30 PM, call [phone] [facility] Oncology Physician at [facility] and ask for [...] capsuleIndications :supplement Take 1 tablet by mouth brim curler before breakfast 07/04/2016 4 cholecalciferol (VITAMIN D-3) 2,000 unit capsule Take 1 capsule (2,000 Units total) by mouth daily 30 capsule 2 04/25/2019 3 cholestyramine (QUESTRAN) 4 gram packet Take 1 packet by mouth 3 (three) times a day with meals 270 packet 3 09/04/2019 2 clotrimazole-betam ethasone (LOTRISONE) cream Apply 1 Application topically daily as needed (rash) 4 coenzyme [id number] 100-5 mg-unit capsuleIndications :supplement Take 1 tablet by mouth brim curler before breakfast 4 diphenoxylate-atro pine (LOMOTIL) 2.5-0.025 [...] and 1 hour after each dose).?? Avoid [place]'s Wort, grapefruit products and [place] oranges while on treatment. placed on hold 09/26/22 for covid 01/29/2022 4 levothyroxine (Synthroid) 75 mcg tabletIndications: Hypothyroidism due to medication Take 1 tablet (75 mcg total) by mouth brim curler before breakfast 30 tablet 3 11/16/2021 2 [...] documented in this encounter Nursing Notes * Didi Curtis RN - 12/11/2021 2:15 PM CDT Patient presented to [facility] for IN2. PAC accessed, blood return noted. BP elevated, per patient she isoff schedule and did not take her BP med today. APPRENTICESHIP CONSULTANT prescribed one time dose of her home medication.In assessment pt told RN that she has pain that is coming back after it had once resolved in her feet, but is scheduled to see photographic specialist this month. ALEKSANDAR Parada contacted via [email or web address]. 1 liter of fluids infused over 2 hours. Post transfusion and 2 hrs post po BP meds, pt BP was elevated 189 75. ALEKSANDAR Parada was contacted via [email or web address]. ALEKSANDAR said as long as patient is asymptomatic she is okay to go and recheck BP at home after another dose of meds. Pt educated on s/s of stroke and when to call the doctor. Pt agreed to take BP at home again tonight and after dose in AM. Pt dc in ambulatory condition with VS otherwise WNL. documented in this encounter Plan of Treatment Not on file documented as of this encounter Visit Diagnoses Diagnosis Hypophosphatemia- Primary Disorders of phosphorus metabolism Hypertension, unspecified type documented in this encounter Administered Medications Inactive Administered Medications - up to 3 most recent administrations Medication Order MAR Action Action Date Dose Rate Site heparin 10 unit/mL flush 30 Units 30 Units (3 mL), IV flush, Once as needed, line care, Starting on Sat12/11/21 at 1409, Flush with Heparin immediately prior to de-accessing port.Indications:Hypophosph atemia Given 12/11/2021 4:41 PM CDT 30 Units hydroCHLOROthiazide (HYDRODIURIL) tablet 12.5 mg 12.5 mg, oral, Daily, First dose on Sat12/11/21 at 1455Indications:Hypertensio n, unspecified type Given 12/11/2021 2:43 PM CDT 12.5 mg losartan (COZAAR) tablet 50 mg 50 mg, oral, Daily, First dose on Sat12/11/21 at 1455Indications:Hypertensio n, unspecified type Given 12/11/2021 2:43 PM CDT 50 mg sodium chloride 0.9% bolus 1,000 mL 1,000 mL, intravenous, at 666.7 mL/hr, Administer over 90 Minutes, Once, On Sat12/11/21 at 1440, For 1 doseIndications:Hypophospha temia New Bag 12/11/2021 2:25 PM CDT 1,000 mL 666.7 mL/hr documented in this encounter Orders Medications Ordered That Brett ht Not Have Been Administered Count Last Ordered Date First Ordered Date heparin 100 unit/mL injection 500 Units 1 0 12/11/2021 sodium chloride 0.9% flush 10 mL 1 12/12/19 documented in this encounter Care Teams Terminal Carman Relationship Specialty Start Date End Date Julio César Briseno MD PCP - General 10/01/16 Eren Cr MD Referring Physician Medical Oncology 11/25/18 Yohana Bowen MD Radiation Oncologist Radiation Oncology 11/25/18 documented as of this encounter
--- OUTSIDE RECORDS SUMMARY | 2024-06-25 22:21 | XMS_ITS | Encounter Summary ---
Author Organization [facility] Address [address] [place] [address] Phone Care Team Providers Care Fare Enforcement Officer Name Role Phone Julio César Briseno MD Primary Care Provider Eren Cr MD Unavailable [phone] Yohana Bowen MD Unavailable Encounter Details Date Type Department Care Team (Latest Contact Info) Description 01/16/2022 9:30 AM CDT Clinical Support [facility] Oncology [address] 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 Gender Identity Not on file Sexual [...] malignant neoplasm of bone and bone marrow Nausea and vomiting, unspecified vomiting type Hypophosphatemia Disorders of phosphorus metabolism documented in this encounter Administered Medications Inactive Administered Medications - up to 3 most recent administrations Medication Order MAR Action Action Date Dose Rate Site heparin 100 unit/mL injection 500 Units 500 Units (5 mL), IV flush, Once as needed, line care, Starting on Sat01/16/22 at 1100, Flush with Heparin immediately prior to de-accessing port.Indications:Hypophosphate jaycee Given 01/16/2022 10:53 AM CDT 500 Units sodium chloride 0.9% flush 10 mL 10 mL, intravenous, As needed, line care, Starting on Sat01/16/22 at 1100, Flush pre and post IV catheter use.Indications:Hypophosphatem ia Given 01/16/2022 10:52 AM CDT 10 mL Given 01/16/2022 10:50 AM CDT 10 mL documented in this encounter Orders Appointment Requests Count Last Ordered Date Fi rst Ordered Date ONCBCN LAB APPOINTMENT 1 01/16/2022 documented in this encounter Care Teams Fare Enforcement Officer Relationship Specialty Start Date End Date Julio César Briseno MD PCP - General 10/01/16 Eren Cr MD Referring Physician Medical Oncology 11/25/18 Yohana Bowen MD Radiation Oncologist Radiation Oncology 11/25/18 documented as of this encounter
--- OUTSIDE RECORDS SUMMARY | 2024-06-25 22:21 | XMS_ITS | Encounter Summary ---
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
--- OUTSIDE RECORDS SUMMARY | 2024-06-25 22:21 | XMS_ITS | Encounter Summary ---
Author Organization [facility] Address [address] [place] [address] Phone Care Team Providers Care Long Line Teamster Name Role Phone Julio César Briseno MD Primary Care Provider [phone] Eren Cr MD Unavailable [phone] Yohana Bowen MD Unavailable Reason for Visit * Episode Based Medications (Routine) - Authorized Specialty Diagnoses / Procedures Referred By Contellen t Referred To Contact Diagnoses Hypomagnesemia Eren Cr MD [address] [facility] [address] [place] [address] Phone: tel: fax: [facility] 7th [place] [address] Phone: tel: Referral ID Status Reason Start Date Expiration Date V isits Requested Visits Authorized [id number] Authorized 11/13/2021 04/01/2025 1 30 Encounter Details Date Type Department Care Team (Late st Contact Info) Description 01/18/2022 3:00 PM CDT Infusion [facility] Oncology [address] [place] [address] Advanced Medicine 7th [place] [address] 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) (Primary Dx); Neuro-endocrine carcinoma (CMS/HCC) (HCC); Dehydration; Neuroendocrine carcinoma (CMS/HCC) (HCC); [...] on file 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 female who presents for IV hydration Pre-treatment Nursing Assessment Nursing Assessment Appetite: Fair Diarrhea: Yes (colostomy, has limotol and imodium) Constipation: No Last BM Date: 01/18/22 (colostomy) Existing Patients: Any falls since your [...] Abdomen: Soft Swelling: No Additional Notes: BP: 144/56 Temp: 36.8 ??C (98.3 ??F) Temp src: Oral Pulse: 53 Resp: 18 SpO2: 99 % Weight: 74.4 kg (164 lb) Pain Score: 0 - No pain Treatment Patient: does not require labs today. Pre blood return: Mary Chung tolerated infusion well. Patient was frequently observed and monitored throughout the administration of their infusion. Additional Notes: no issues throughout infusion, pt to contact MD team if issues arise; AVS printedfor pt Post blood return: Brisk IV access post infusion: NS and Heparin 100 units/mL; port de-accessed and dressed with band-aid Patient Education Treatment Education: Information/teaching given to patient including adverse reaction, symptom management, process and procedure related to today's visit, when to notify MD and other: follow-up Response: Verbalizes understanding Discharge Plan Discharge instructions given to patient. Future appointments given and reviewed with treatment plan. Discharge Mode: Wheelchair Accompanied by: Spouse Discharged To: Home 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)- Primary Neuro-endocrine carcinoma (HCC) Other malignant neoplasm of unspecified site Dehydration Neuroendocrine carcinoma (HCC) Other malignant neoplasm of unspecified site Hypophosphatemia Disorders of phosphorus metabolism documented in this encounter Administered Medications Inactive Administered Medications - up to 3 most recent administrations Medication Order MAR Action Action Date Dose Rate Site sodium chloride 0.9% bolus 1,000 mL 1,000 mL, intravenous, at 500 mL/hr, Administer over 2 Hours, Once, On Lydia 01/18/22 at 1500, For 1 doseIndications:Neuroendocr ine carcinoma (HCC) New Bag 01/18/2022 2:32 PM CDT 1,000 mL 500 mL/hr documented in this encounter Orders Medications Ordered That Brett ht Not Have Been Administered Count Last Ordered Date First Ordered Date heparin 100 unit/mL injection 500 Units 1 0 01/18/2022 sodium chloride 0.9% bolus 1,000 mL 1 01/18 sodium chloride 0.9% flush 10 mL 1 01/19/20 Appointment Requests Count Last Ordered Date Fi rst Ordered Date ONCBCN INFUSION APPT REQUEST 1 01/18/2022 documented in this encounter Care Teams Long Line Teamster Relationship Specialty Start Date End Date Julio César Briseno MD PCP - General 10/01/16 Eren Cr MD Referring Physician Medical Oncology 11/25/18 Yohana Bowen MD Radiation Oncologist Radiation Oncology 11/25/18 documented as of this encounter
--- OUTSIDE RECORDS SUMMARY | 2024-06-25 22:21 | XMS_ITS | Encounter Summary ---
Author Organization [facility] Address [address] [place] [address] Phone Care Team Providers Care Waterproofing Supervisor Name Role Phone Julio César Briseno MD Primary Care Provider [phone] Eern Cr MD Unavailable [phone] Yohana Bowen MD Unavailable Reason for Visit * Episode Based Medications (Routine) - Authorized Specialty Diagnoses / Procedures Referred By Contellen t Referred To Contact Diagnoses Hypomagnesemia Eren Cr MD [address] [facility] [address] [place] [address] Phone: tel: fax: [facility] 7th [place] [address] Phone: tel: Referral ID Status Reason Start Date Expiration Date V isits Requested Visits Authorized [id number] Authorized 11/13/2021 04/01/2025 30 Encounter Details Date Type Department Care Team (Late st Contact Info) Description 01/29/2022 3:30 PM CDT Infusion [facility] Oncology [address] [place] [address] 7th [place] [address] Neuro-endocrine carcinoma (CMS/HCC) (HCC) (Primary Dx); Dehydration; Hypomagnesemia Social History Tobacco Use Types Packs/Day [...] on file 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 female who presents for 4 g of Mg Pre-treatment Nursing Assessment Nursing Assessment Appetite: Good Diarrhea: Yes Constipation: No Last BM Date: 01/29/22 (colostomy) Existing Patients: Any falls since your last visit?: No New Patients: Any falls since your last visit?: N/A Fatigue: Occassional Mouth Sores: No Nausea/Vomiting: No Neurological symptoms: No Pain: No Peripheral Neuropathy: No Pt states has potential to be ?: No Lungs auscultated PRN: Yes Pt is on oxygen?: No Respiratory Effort Characteristics: Dyspnea exertion Skin Condition/Temp: Warm, Dry Oral Mucosa Grade: Normal (0) Abdomen: Soft Swelling: No Additional Notes: Pt became nauseas at end of infusion. 8mg IV Zofran given. BP: 108/67 Temp: 36.4 ??C (97.5 ??F) Temp src: Transdermal Pulse: 81 Resp: 18 SpO2: 98 % Weight: 76.9 kg (169 lb 9.6 oz) Treatment Patient: met treatment parameters Pre blood return: Brisk La Chung tolerated treatment well. Patient was frequently observed and monitored throughout the administration of their treatment. Additional Notes: Post blood return: Brisk IV access post infusion: NS and Heparin 100 units/mL Patient Education Treatment Education: Information/teaching given to patient including process and procedure related to today's visit and when to notify MD Response: Verbalizes understanding Discharge Plan Discharge instructions given to patient. Future appointments given and reviewed with treatment plan. Discharge Mode: Wheelchair Accompanied by: Spouse Discharged To: Home in stable condition documented in this encounter Plan of Treatment Not on file documented as of this encounter Visit Diagnoses Diagnosis Neuro-endocrine carcinoma (HCC)- Primary Other malignant neoplasm of unspecified site Dehydration Hypomagnesemia Disorders of magnesium metabolism documented in this encounter Administered Medications Inactive Administered Medications - up to 3 most recent administrations Medication Order MAR Action Action Date Dose Rate Site ondansetron (ZOFRAN) injection 8 mg 8 mg, intravenous, Administer over 2 Minutes, Once, On Sat01/29/22 at 1745, For 1 doseIndications:Neuro-endoc rine carcinoma (HCC) Given 01/29/2022 5:07 PM CDT 8 mg sodium chloride 0.9% 500 mL with magnesium sulfate 4 g infusion 333 mL/hr, intravenous, Once, On Sat01/29/22 at 1545, For 1 doseIndications:Hypomagnese jaycee New Bag 01/29/2022 3:33 PM CDT 333 mL/hr 333 mL/hr documented in this encounter Orders Appointment Requests Count Last Ordered Date Fi rst Ordered Date ONCBCN INFUSION APPT REQUEST 1 01/29/2022 documented in this encounter Care Teams Waterproofing Supervisor Relationship Specialty Start Date End Date Julio César Briseno MD PCP - General 10/01/16 Eren Cr MD Referring Physician Medical Oncology 11/25/18 Yohana Bowen MD Radiation Oncologist Radiation Oncology 11/25/18 documented as of this encounter
--- OUTSIDE RECORDS SUMMARY | 2024-06-25 22:21 | XMS_ITS | Encounter Summary ---
Author Organization [facility] Healthcare Address [address] [place] [address] Care Team Providers Care Pressed Or Blown Glass Worker Name Role Phone Julio César Briseno MD Primary Care Provider [phone] Eren Cr MD Unavailable Yohana Bowen MD Unavailable Encounter Details Date Type Department Care Team (Latest Contact Info) Description 01/10/2022 3:20 PM CDT - 01/10/2022 11:59 PM CDT Hospital Encounter [facility] [address] [place] [id number] Hypophosphatemia (Primary Dx); Diarrhea, unspecified type Discharge Disposition: Discharge to home [...] on file Legal Sex Female 2:41 PM TREATER Gender Identity Not on file Sexual Orientation Straight 02/19/2021 9: 29 AM CDT Occupation Industry Job Start Date Job End Date retired Not on file Not on file Not on file documented as of this encounter Last Filed Vital Signs Vital Sign Reading Time Taken Comments Blood Pressure 134/74 01/10/2022 6:05 PM CDT Pulse 87 01/10/2022 6:05 PM CDT Temperature 36.7 ??C (98.1 ??F) 01/10/2022 6:05 PM CD T Respiratory Rate 18 01/10/2022 6:05 PM CDT Oxygen Saturation 98% 01/10/2022 6:05 PM CDT Inhaled Oxygen Concentration - - Weight - - Height - - Body Mass Index - - documented in this encounter Discharge Instructions * Patient Instructions* Xochitl Perdue RN - 01/10/2022 5:57 PM CDT .After 4:30 PM during the week, on weekends and holidays, call [phone] and ask to have the Automobile Service Station Manager Physician paged for you. Saturday through Saturday, 8 AM to 4:30 PM, call [phone] [facility] Oncology Physician at [facility] and ask for a member [...] capsuleIndications :supplement Take 1 tablet by mouth air moving technician before breakfast 07/04/2016 4 cholecalciferol (VITAMIN D-3) 2,000 unit capsule Take 1 capsule (2,000 Units total) by mouth daily 30 capsule 2 04/25/2019 3 cholestyramine (QUESTRAN) 4 gram packet Take 1 packet by mouth 3 (three) times a day with meals 270 packet 3 09/04/2019 2 clotrimazole-betam ethasone (LOTRISONE) cream Apply 1 Application topically daily as needed (rash) 4 coenzyme [id number] 100-5 mg-unit capsuleIndications :supplement Take 1 tablet by mouth air moving technician before breakfast 4 diphenoxylate-atro pine (LOMOTIL) 2.5-0.025 [...] dose).?? Avoid Jas's Wort, grapefruit products and [place] oranges while on treatment. placed on hold 09/26/22 for covid 01/29/2022 4 levothyroxine (Synthroid) 75 mcg tabletIndications: Hypothyroidism due to medication Take 1 tablet (75 mcg total) by mouth air moving technician before breakfast 30 tablet 3 11/16/2021 2 [...] documented in this encounter Progress Notes * Hien Blanton, CECILIA - 01/10/2022 3:30 PM CDT Oncology Progress Note [facility] Subjective La Chung is a 71 y.o. female with chief complaint of diarrhea, vomiting, and vertigo. HPI: La Chung is a 71 y.o. female patient of Dr. 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 She is currently on dose reduced C6 of the CABINET clinical trial: [id number] - [facility] - GI - [id number] -Step 1 and Step 2 Crossover - Cabozantinib/Placebo OR Open label Cabozantinib, last on 12/25/21. Octreotide injection was on 12/11/21. Arrives to the [facility] accompanied via wheelchair with Alejo. BP 109/61 (BP Location: Right arm, Patient Position: Sitting) Pulse 68 Temp 36.7 ??C (98 ??F) (Oral) Resp 16 SpO2 98% Endorsing chronic diarrhea which has worsened to liquid diarrhea output via ostomy for two days, starting on 01/08/22. Stoma and ostomy remain intact with non-bloody stool. Treating with PRN Lomotil three x per day with minimal- moderate improvement. Denies urinary involvement. She has experienced one episode of emesis yesterday, 01/09/22, which is also chronic with prior cycles. Non-bloody, non-bilious. She has PRN Zofran, however she did not feel that she needed it. Appetite and fluid intake remains stable, without nausea. She supplements with water and Gatorade, however she feels that her intake is slightly decreased this week. Vertigo is also chronic which she has used Meclizine 25 mg PRN, last used yesterday and today with relief. Vertigo occurs from sitting to standing at a quick movement, to which she has been using a cane to ambulate x two days d/t vertigo. Typically she ambulates without assistive devices. The patient also discloses that she feels increased anxiety r/t family coming into town and preparing the house while feeling fatigued and intermittent vertigo. She continues her normal ADLs, describes the anxiety as manageable, and situational. Denies fever, chills, headache, shortness of breath, chest pain, congestion, nausea, vomiting, constipation, dysuria, and rash. Oncology history: per Dr. 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 07/2015 CT A/P - calcified enhancing mass centered in the terminal ileum with possible involvement of the proximal appendix and adjacent desmoplastic, raising suspicion for primary tumor such as carcinoid or possibly adenocarcinoma. 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 Tiny nodules in the omentum which could represent tumor deposits. ?? 2. 07/2015 Colonoscopy ([facility]) - hemorrhoids, ileitis, and diverticulosis. ?? 3. 10/03/2015 s/p exploratory laparotomy, bilateral salpingo-oophorectomy, partial omentectomy, andperitoneal biopsies by Dr. Jasbir Reeves. ??At the same time, she also underwent right colectomy in the same OR by Dr. Greyson Reeves. ??Biopsy revealed metastatic ileal well-differentiated neuroendocrine tumor involving [...] mediastinal lymphadenopathy consistent with stable metastatic disease. ?? 10. 10/21/2018 MRI - multiple hepatic lesions [...] a lesion in the proximal left humerus. ?? 12. 11/24/2018, plan for PRRT due to [...] and conspicuity of multiple bilateral lung nodules. . 08/01/2020 CT - no significant change in multiple serosal hepatic metastases and omental metastatic disease. Unchanged sclerotic lesion within the inferior right C7 articular facet likely representing metastasis given dotatate uptake. Stable right supraclavicular LN. . 08/15/2020 continue monthly Octreotide LAR injections 21. [...] lesions increased. 22. CABINET study started 07/21/2021 ?? Past Medical History: Diagnosis Date ??? Arthritis [...] CHEST >5 YEARS N/A 09/14/2021 ? ? [place] REMOVAL OF TONSILS,<12 Y/O Tonsillectomy - (Added by TW Conv) ??? [place] TOTAL ABDOM HYSTERECTOMY Hysterectomy - (Added by TW Conv) (Not in a hospital admission) Allergies Allergen Reactions ??? Morphine Blisters ??? Ezetimibe-Simvastatin Muscle pain and Unknown Muscle weakness ??? Ramipril Cough Social History Tobacco Use ??? Smoking status: Never Smoker ??? Smokeless tobacco: Never Used Substance and Sexual Activity ??? Drug use: No ??? Sexual activity: Defer Alcohol Use: Unknown ??? Frequency of Alcohol Consumption: Monthly or less ??? Average Number of Drinks: Not on file ??? Frequency of Binge Drinking: Not on file Family History Problem Relation Age of Onset ??? Breast cancer Sister 61 Adenocarcinoma of breast - (Added by TW Conv) ??? Suicidality Father Family history of suicide - (Added by TW Conv) ??? Other (old age) Mother ??? Melanoma Daughter 30 Review of Systems Review of Systems Constitutional: Positive for fatigue. Negative for appetite change, chills and fever. HENT: Rhinorrhea Eyes: Negative. Respiratory: Negative. Cardiovascular: Negative. Gastrointestinal: Positive for diarrhea (chronic, liquid via ostomy) and vomiting (x1, non-bloody, undigested food). Negative for abdominal distention, abdominal pain, blood in stool and nausea. Endocrine: Negative. Genitourinary: Negative. Musculoskeletal: Negative. Skin: Negative. Neurological: Positive for dizziness. Psychiatric/Behavioral: The patient is nervous/anxious. All other systems reviewed and are negative. Pain: negative. Objective Vitals: BP 96/52 (BP Location: Left arm, Patient Position: Standing) Pulse 78 Temp 36.9 ??C (98.4 ??F) (Oral) Resp 18 SpO2 99% Orthostatic VS: Sitting: BP 121/59, HR 59 Standing: BP 96/52, HR 78 Physical exam: Physical Exam Vitals and nursing note reviewed. Constitutional: General: She is not in acute distress. Appearance: Normal appearance. She is normal weight. She is not ill-appearing or toxic-appearing. HENT: Head: Normocephalic and atraumatic. Right Ear: External ear normal. Left Ear: External ear normal. Nose: Rhinorrhea (clear) present. No congestion. Mouth/Throat: Mouth: Mucous membranes are moist. Pharynx: Oropharynx is clear. No oropharyngeal exudate or posterior oropharyngeal erythema. Eyes: General: Right eye: No discharge. Left eye: No discharge. Extraocular Movements: Extraocular movements intact. Conjunctiva/sclera: Conjunctivae normal. Pupils: Pupils are equal, round, and reactive to light. Cardiovascular: Rate and Rhythm: Normal rate and regular rhythm. Pulses: Normal pulses. Heart sounds: Normal heart sounds. Pulmonary: Effort: Pulmonary effort is normal. No respiratory distress. Breath sounds: Normal breath sounds. No stridor. No wheezing or rhonchi. Chest: Chest wall: No tenderness. Abdominal: General: The ostomy site is clean. Bowel sounds are normal. There is no distension. Palpations: Abdomen is soft. There is no mass. Tenderness: There is no abdominal tenderness. There is no guarding or rebound. Hernia: No hernia is present. Comments: Ostomy intact to LLQ, semi formed stool, non-bloody, non-bilious Genitourinary: Comments: deferred Musculoskeletal: General: Normal range of motion. Cervical back: Normal range of motion and neck supple. No rigidity or tenderness. Right lower leg: No edema. Left lower leg: No edema. Lymphadenopathy: Cervical: No cervical adenopathy. Skin: General: Skin is warm and dry. Capillary Refill: Capillary refill takes less than 2 seconds. Coloration: Skin is not jaundiced or pale. Findings: No erythema or rash. Neurological: General: No focal deficit present. Mental Status: She is alert and oriented to person, place, and time. Mental status is at baseline. Cranial Nerves: No cranial nerve deficit. Sensory: No sensory deficit. Motor: No weakness. Coordination: Coordination normal. Gait: Gait normal. Deep Tendon Reflexes: Reflexes normal. Psychiatric: Mood and Affect: Mood normal. Behavior: Behavior normal. Thought Content: Thought content normal. Judgment: Judgment normal. Lab/Radiology/Diagnostic Review: Latest Reference Range & Units 01/10/22 15:55 WBC 3.8 - 9.9 K/cumm 3.5 (L) Hgb 11.9 - 15.5 g/dL 12.3 Hct 35.6 - 45.5 % 36.0 Plt 150 - 400 K/cumm 108 (L) MPV 9.1 - 12.3 fL 11.7 RBC 3.90 - 5.20 M/cumm 3.55 (L) MCV 81.3 - 96.4 fL 101.4 (H) MCH 27.1 - 33.3 pg 34.6 (H) MCHC 32.3 - 35.7 g/dL 34.2 RDW CV 11.1 - 14.9 % 12.6 RDW SD 35.7 - 48.1 fL 47.3 NRBC abs 0.00 - 0.01 K/cumm 0.00 Neutrophil abs 1.7 - 6.5 K/cumm 1.9 Imm gran abs 0.0 - 0.1 K/cumm 0.0 Lymphocyte abs 0.8 - 3.3 K/cumm 0.7 (L) Monocyte abs 0.2 - 0.8 K/cumm 0.5 Eosinophil abs 0.0 - 0.5 K/cumm 0.4 Basophil abs 0.0 - 0.1 K/cumm 0.0 Neutrophil pct % 53.2 Imm gran pct % 0.3 Lymphocyte pct % 19.5 Monocyte pct % 14.6 Eosinophil pct % 11.5 Basophil pct % 0.9 Latest Reference Range & Units 01/10/22 16:27 Lactate, POC 0.7 - 2.2 mmol/L 1.7 Latest Reference Range & Units 01/10/22 15:55 Sodium 135 - 145 mmol/L 138 Potassium, pl 3.3 - 4.9 mmol/L 3.8 Chloride 97 - 110 mmol/L 105 CO2 22 - 32 mmol/L 23 Anion gap 2 - 15 mmol/L 10 BUN 8 - 25 mg/dL 24 Creatinine 0.60 - 1.10 mg/dL 1.62 (H) Glucose 70 - 199 mg/dL 121 Calcium 8.5 - 10.3 mg/dL 10.2 Bilirubin, total 0.1 - 1.2 mg/dL 0.4 Protein, pl 6.5 - 8.5 g/dL 6.5 Albumin 3.5 - 5.0 g/dL 4.0 eGFR 90 - 130 mL/min/1.73 m2 33 (L) Alk phos 40 - 130 Units/L 95 AST 10 - 45 Units/L 47 (H) ALT 7 - 45 Units/L 37 Magnesium 1.4 - 2.5 mg/dL 1.6 Phosphorus, pl 2.3 - 4.5 mg/dL 3.0 Latest Reference Range & Units 01/10/22 15:55 Influenza A RNA Not Detected Not Detected Influenza B RNA Not Detected Not Detected RSV RNA Not Detected Not Detected COVID-19 RNA Not Detected Not Detected Coronavirus 229E RNA Not Detected Not Detected Coronavirus HKU1 RNA Not Detected Not Detected Coronavirus NL63 RNA Not Detected Not Detected Coronavirus OC43 RNA Not Detected Not Detected Metapneumovirus RNA Not Detected Not Detected Rhinovirus/Enterovirus RNA Not Detected Not Detected Parainfluenza 1 RNA Not Detected Not Detected Parainfluenza 2 RNA Not Detected Not Detected Parainfluenza 3 RNA Not Detected Not Detected Parainfluenza 4 RNA Not Detected Not Detected B. pertussis DNA Not Detected Not Detected B. parapertussis DNA Not Detected Not Detected C. pneumoniae DNA Not Detected Not Detected M. pneumoniae DNA Not Detected Not Detected Adenovirus DNA Not Detected Not Detected Assessment and plan: 1. Chronic diarrhea via ostomy -Ddx: infectious viral vs bacterial vs chronic -Basic labs -WBC: 3.5 (3.4 on 12/25/21) -POCT lactate: 1.7 -RVP: negative -1000 ml LR bolus x 2 hours -Continue Lomotil 3-4 x per day -Discussed adding Imodium PRN and alternating between medications for better liquid diarrhea titration 2. Vertigo -Intermittent, on-going, chronic history -Orthostatic VS: positive -Continue using Meclizine 25 mg daily to BID -Use assistive devices with cane, walker, PRN and discussed changing positions slowly 3. Vomiting without nausea -Chronic, ongoing throughout treatment -PRN Zofran -Denies current nausea -Appetite and fluid intake remain stable, discussed supplementation with Gatorade and Ensures as needed Patient and family discussion: Discussed laboratory studies with the patient as well as reassuring findings from her exam. Conditions seem chronic with diarrhea, vertigo, and one episode of vomiting.Offered and discussed continued use of PRN medications for Imodium, Zofran, and Meclizine for symptomatic management. She is agreeable and ready to discharge home. Return precautions discussed. VSS, A/Ox4, she is not in any distress. Discussed discharge instructions with patient and verbalizes understanding. Discharged in stable condition via wheelchair. Hien Blanton, DNP, BUSINESS STRATEGY MANAGER, CORPORATE RECYCLING MANAGER-C [facility] (E) [email or web address] documented in this encounter Nursing Notes * Xochitl Perdue, RN - 01/10/2022 3:30 PM CDT Pt arrived to [facility] for MEDICAL INVESTIGATOR evaluation. Pt came in with c/o of dizziness, weakness and shakey. VSS on arrival. Orthostatics positive. PAC accessed, blood return noted, flushed easily. Labs drawn. POC lactate obtained, 1.7. 1LR infused. Labs WNL. RVP negative. Pt okay to discharge home. VSS. PAC heparin flushed and deaccessed. Discharge education/AVS discussed with pt. Pt discharged home in stable condition. documented in this encounter Plan of Treatment Not on file documented as of this encounter Procedures Procedure Name Priority Date/Time Associated Diagnosis Comments POC BLOOD GAS AND CHEMISTRIES, ARTERIAL Routine 01/10/2022 4:27 PM CDT EGFR Routine 01/10/2022 3:55 PM CDT DIFFERENTIAL AUTO Routine 01/10/2022 3:5 5 PM CDT RESPIRATORY PATHOGEN PANEL Routine 01/10/2022 3:55 PM CDT CBC WITH AUTO DIFFERENTIAL Routine 01/10/2022 3:55 PM CDT PHOSPHORUS STAT 01/10/2022 3:55 PM CDT MAGNESIUM STAT 01/10/2022 3:55 PM CDT COMPREHENSIVE METABOLIC PANEL Routine 01/10/2022 3:55 PM CDT documented in this encounter Results * POC Blood Gas and Chemistries, Arterial - (01/10/2022 4:27 PM CDT) [facility] Lactate, POC 1.7 0.7 - 2.2 mmol/L [facility] Blood 01/10/2022 4:27 PM CDT 01/10/2022 4:27 PM CDT us Notinfile Unknown LAB POCT ORDERABLES - DEVICE F inal Result Performing Organization Address [facility] Co de Phone Number [facility] Department [place] [address] * (ABNORMAL) eGFR (01/10/2022 3:55 PM CDT) eGFR 33(L) 90 - 130 mL/min/1. 73 m2 [facility] Comment: Interpretive Data Reference Interval Normal [...] interpretive data was last reviewed 2021. Blood 01/10/2022 3:55 PM CDT 01/10/2022 4:15 PM CDT us Hien Blanton MEDICAL INVESTIGATOR LAB BLOOD ORDERABL ES Final Result Performing Organization Address [facility] Co de Phone Number [facility] Department [place] [address] * (ABNORMAL) Differential, auto (01/10/2022 3:55 PM CDT) Neutrophil abs 1.9 1.7 - 6.5 K/cumm [facility] Imm gran abs 0.0 0.0 - 0.1 K/cumm [facility] Lymphocyte abs 0.7(L) 0.8 - 3.3 K/cumm [facility] Monocyte abs 0.5 0.2 - 0.8 K/cumm [facility] Eosinophil abs 0.4 0.0 - 0.5 K/cumm [facility] Basophil abs 0.0 0.0 - 0.1 K/cumm [facility] Neutrophil pct 53.2 % [facility] Comment: Interpretive Data Percent cell count reference ranges are not reported, since discordance with absolute values may lead to misinterpretation of CBC data. Current Interpretive Data was last revised on 2017. Imm gran pct 0.3 % [facility] Comment: Interpretive Data Percent cell count reference ranges are not reported, since discordance with absolute values may lead to misinterpretation of CBC data. Current Interpretive Data was last revised on 2017. Lymphocyte pct 19.5 % [facility] Comment: Interpretive Data Percent cell count reference ranges are not reported, since discordance with absolute values may lead to misinterpretation of CBC data. Current Interpretive Data was last revised on 2017. Monocyte pct 14.6 % [facility] Comment: Interpretive Data Percent cell count reference ranges are not reported, since discordance with absolute values may lead to misinterpretation of CBC data. Current Interpretive Data was last revised on 2017. Eosinophil pct 11.5 % [facility] Comment: Interpretive Data Percent cell count reference ranges are not reported, since discordance with absolute values may lead to misinterpretation of CBC data. Current Interpretive Data was last revised on 2017. Basophil pct 0.9 % [facility] Comment: Interpretive Data Percent cell count reference ranges are not reported, since discordance with absolute values may lead to misinterpretation of CBC data. Current Interpretive Data was last revised on 2017. Blood 01/10/2022 3:55 PM CDT 01/10/2022 4:15 PM CDT Hien Blanton NP LAB BLOOD ORDERABL ES Final Result [facility] Department [place] [address] * Respiratory pathogen panel Nasopharyngeal (01/10/2022 3:55 PM CDT) [facility] Influenza A RNA Not Detected Not Detected [facility] Influenza B RNA Not Detected Not Detected [facility] RSV RNA Not Detected Not Detected [facility] COVID-19 RNA Not Detected Not Detected [facility] Coronavirus 229E RNA Not Detected Not Detected [facility] Coronavirus HKU1 RNA Not Detected Not Detected [facility] Coronavirus NL63 RNA Not Detected Not Detected [facility] Coronavirus OC43 RNA Not Detected Not Detected [facility] Adenovirus DNA Not Detected Not Detected [facility] Metapneumovirus RNA Not Detected Not Detected [facility] Rhinovirus/Enterov irus RNA Not Detected Not Detected [facility] Parainfluenza 1 RNA Not Detected Not Detected [facility] Parainfluenza 2 RNA Not Detected Not Detected [facility] Parainfluenza 3 RNA Not Detected Not Detected [facility] Parainfluenza 4 RNA Not Detected Not Detected [facility] B. pertussis DNA Not Detected Not Detected [facility] B. parapertussis DNA Not Detected Not Detected [facility] C. pneumoniae DNA Not Detected Not Detected [facility] M. pneumoniae DNA Not Detected Not Detected [facility] Nasopharyngeal 01/10/2022 3: 55 PM CDT 01/10/2022 4:17 PM CDT Narrative [facility] - 01/10/2022 5:54 PM CDT Is the Patient experiencing symptoms consistent with COVID?->Yes Date of Symptom Onset->01/08/22 Reason for testing?->Symptomatic Known exposure to confirmed or suspected COVID-19 case?->No Surveillance testing for transplant patient?->No ??Interpretive Data The [employer] FilmArray Respiratory Panel (RP2.1) assay is a [...] assay has FDA clearance for testing of MEDICAL INVESTIGATOR swabs. ??The performance characteristics of this assay have been determined by [facility]. Current interpretive data was last revised on 2021. ??Interpretive Data The [employer] FilmArray Respiratory Panel (RP2.1) assay is a [...] assay has FDA clearance for testing of MEDICAL INVESTIGATOR swabs. ??The performance characteristics of this assay have been determined by [facility]. Current interpretive data was last revised on 2021. us Hien Blanton MEDICAL INVESTIGATOR LAB MICROBIOLOGY - GENERAL ORDERABLES Final Result [facility] [place] [address] * Phosphorus (01/10/2022 3:55 PM CDT) Pathologist [facility] Phosphorus, pl 3.0 2.3 - 4.5 mg/dL [facility] Blood 01/10/2022 3:55 PM CDT 01/10/2022 4:15 PM CDT Hien Blanton MEDICAL INVESTIGATOR LAB BLOOD [place] [address] * Magnesium (01/10/2022 3:55 PM CDT) Pathologist [facility] Magnesium 1.6 1.4 - 2.5 mg/dL [facility] Blood 01/10/2022 3:55 PM CDT 01/10/2022 4:15 PM CDT Hien Blanton MEDICAL INVESTIGATOR LAB BLOOD ORDERABL ES Final Result Performing Organization Address City/[facility] [place] [address] * (ABNORMAL) Comprehensive metabolic panel (01/10/2022 3:55 PM CDT) Pathologist [facility] Sodium 138 135 - 145 mmol/L [facility] Potassium, pl 3.8 3.3 - 4.9 mmol/L [facility] Chloride 105 97 - 110 mmol/L [facility] CO2 23 22 - 32 mmol/L [facility] Anion gap 10 2 - 15 mmol/L [facility] BUN 24 8 - 25 mg/dL [facility] Creatinine 1.62(H) 0.60 - 1.10 mg/dL [facility] Glucose 121 70 - 199 mg/dL [facility] Comment: Interpretive Data Fasting glucose >/= [...] 2017. Calcium 10.2 8.5 - 10.3 mg/dL [facility] Bilirubin, total 0.4 0.1 - 1.2 mg/dL [facility] Protein, pl 6.5 6.5 - 8.5 g/dL [facility] Albumin 4.0 3.5 - 5.0 g/dL [facility] Alk phos 95 40 - 130 Units/L [facility] ALT 37 7 - 45 Units/L [facility] AST 47(H) 10 - 45 Units/L [facility] Blood 01/10/2022 3:55 PM CDT 01/10/2022 4:15 PM CDT us Hien Blanton NP LAB BLOOD ORDERABL ES Final Result [facility] Department [place] [address] * (ABNORMAL) CBC with auto differential (01/10/2022 3:55 PM CDT) WBC 3.5(L) 3.8 - 9.9 K/cumm [facility] Hgb 12.3 11.9 - 15.5 g/dL [facility] Hct 36.0 35.6 - 45.5 % [facility] Plt 108(L) 150 - 400 K/cumm [facility] MPV 11.7 9.1 - 12.3 fL [facility] RBC 3.55(L) 3.90 - 5.20 M/cumm [facility] MCV 101.4(H) 81.3 - 96.4 fL [facility] MCH 34.6(H) 27.1 - 33.3 pg [facility] MCHC 34.2 32.3 - 35.7 g/dL [facility] RDW CV 12.6 11.1 - 14.9 % [facility] RDW SD 47.3 35.7 - 48.1 fL [facility] NRBC abs 0.00 0.00 - 0.01 K/cumm [facility] Blood 01/10/2022 3:55 PM CDT 01/10/2022 4:15 PM CDT us Hien Blanton MEDICAL INVESTIGATOR LAB BLOOD ORDERABL ES Final Result [facility] Department [place] [address] documented in this encounter Visit Diagnoses Diagnosis Hypophosphatemia- Primary Disorders of phosphorus metabolism Diarrhea, unspecified type documented in this encounter Administered Medications Inactive Administered Medications - up to 3 most recent administrations Medication Order MAR Action Action Date Dose Rate Site heparin 100 unit/mL injection 500 Units 500 Units (5 mL), IV flush, Once as needed, line care, Starting on Sat01/10/22 at 1522, Flush with Heparin immediately prior to de-accessing port.Indications:Hypophosph atemia Given 01/10/2022 5:58 PM CDT 500 Units Lactated Ringer's (LR) bolus 1,000 mL 1,000 mL, intravenous, at 500 mL/hr, Administer over 2 Hours, Once, On Sat01/10/22 at 1600, For 1 doseIndications:Diarrhea, unspecified type New Bag 01/10/2022 4:01 PM CDT 1,000 mL 500 mL/hr documented in this encounter Additional Health Concerns Infection Onset Date Last Indicated Resolved Time COVID: Suspected 01/10/2022 01/10/2022 01/10/2022 5:55 PM CDT documented as of this encounter Care Teams Pressed Or Blown Glass Worker Relationship Specialty Start Date End Date Julio César Briseno MD PCP - General 10/01/16 Eren Cr MD Referring Physician Medical Oncology 11/25/18 Yohana Bowen MD Radiation Oncologist Radiation Oncology 11/25/18 documented as of this encounter
--- OUTSIDE RECORDS SUMMARY | 2024-06-25 22:21 | XMS_ITS | Encounter Summary ---
Author Organization [facility] Address [address] [place] [address] Phone Care Team Providers Care Catalyst Operator Chief Name Role Phone Julio César Briseno MD Primary Care Provider Eren Cr MD Unavailable [phone] Yohana Bowen MD Unavailable Encounter Details Date Type Department Care Team (Late st Contact Info) Description 01/30/2022 Orders Only [facility] Oncology [address] [facility] 7th [place] [address] [place] [address] Eren Cr MD [address] [facility] [address] [place] [address] Social History Tobacco Use Types Packs/Day Years [...] file 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
--- OUTSIDE RECORDS SUMMARY | 2024-06-25 22:21 | XMS_ITS | Encounter Summary ---
Author Organization [facility] Address [address] [place] [address] Phone Care Team Providers Care Drapery Maker Name Role Phone Julio César Briseno MD Primary Care Provider [phone] Eren Cr MD Unavailable [phone] Yohana Bowen MD Unavailable Encounter Details Date Type Department Care Team (Late st Contact Info) Description 01/25/[address] 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
--- OUTSIDE RECORDS SUMMARY | 2024-06-25 22:21 | XMS_ITS | Encounter Summary ---
Author Organization [facility] Address [address] [place] [address] Phone Care Team Providers Care Financial Coordinator Name Role Phone Julio César Briseno MD Primary Care Provider Eren Cr MD Unavailable [phone] Yohana Bowen MD Unavailable Encounter Details Date Type Department Care Team (Latest Contact Info) Description 02/01/2022 1:30 PM CDT Clinical Support [facility] Oncology [facility] 7th [place] [address] [place] [address] Hypophosphatemia (Primary Dx) Social History Tobacco Use Types [...] file 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 Gender Identity Not on file Sexual Orientation Straight 02/19/2021 9: 29 AM CDT Occupation Industry Job Start Date Job End Date retired Not on file Not on file Not on file documented as of this encounter Plan of Treatment Not on file documented as of this encounter Visit Diagnoses Diagnosis Hypophosphatemia- Primary Disorders of phosphorus metabolism documented in this encounter Orders Medications Ordered That Brett ht Not Have Been Administered Count Last Ordered Date First Ordered Date heparin 100 unit/mL injection 500 Units 1 0 02/01/2022 sodium chloride 0.9% flush 10 mL 1 02/02/20 22 documented in this encounter Care Teams Financial Coordinator Relationship Specialty Start Date End Date Julio César Briseno MD PCP - General 10/01/16 Eren Cr MD Referring Physician Medical Oncology 11/25/18 Yohana Bowen MD Radiation Oncologist Radiation Oncology 11/25/18 documented as of this encounter
--- OUTSIDE RECORDS SUMMARY | 2024-06-25 22:21 | XMS_ITS | Encounter Summary ---
Author Organization [facility] Address [address] [place] [address] Phone Care Team Providers Care Guest Relations Representative Name Role Phone Julio César Briseno MD Primary Care Provider [phone] Eren Arciniega MD Unavailable [phone] Yohana Bowen MD Unavailable Reason for Visit * Episode Based Medications (Routine) - Closed Specialty Diagnoses / Procedures Referred By Evelyne bowman Referred To Contact Diagnoses Neuro-endocrine carcinoma (HCC) Procedures study [id number] phase III cabozantinib Eren Arciniega MD [address] [place] [address] Phone: tel: fax: [facility] at [facility] and [facility] [address] [facility] 7th [place] [address] Phone: tel: Referral ID Status Reason Start Date Expiration Date Visits Re quested Visits Authorized [id number] Closed 06/21/2021 06/26/2024 1 99 Encounter Details Date Type Department Care Team (Late st Contact Info) Description 01/15/2022 1:30 PM CDT Office Visit [facility] [address] 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5 ??F) 01/15/2022 1:03 PM CD T Respiratory Rate 16 01/15/2022 1:03 PM CDT Oxygen Saturation 98% 01/15/2022 1:03 PM CDT Inhaled Oxygen Concentration - - Weight 74.4 kg (164 lb) 01/15/2022 1:03 PM CDT Height - - Body Mass Index 30 10/19/2021 4:00 PM CDT documented in this encounter Progress Notes * Idania Diaz PA - 01/15/2022 1:30 PM CDT MEDICAL ONCOLOGY OUTPATIENT ROV NOTE DATE OF VISIT: 01/15/2022 DIAGNOSIS: 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 07/2015 CT A/P - calcified [...] time, she also underwent right colectomy in [facility] [place] by Dr. Greyson Reeves. [...] She is accompanied by her today. She reports compliance on the study drug, 60 mg once daily. Today is cycle 7 of Cabozantinib/placebo (CABINET study). Her dose had been reduced to 40 mg and she stated that she had been feeling much better. Octreotide injection today. In the [facility] with diarrhea, vomiting, and vertigo.Creatinine was 1.62. Respiratory panel was negative. She was treated with 1 L IVF and bowel regimenof Lomotil and Imodium. She presents to clinic today with complaints of dizziness, light headedness, and vision changes. Her symptoms are exacerbated when standing or bending over. She also has decreased energy and fatigue.She feels dehydrated and is nauseated. She reports having increase in her ostomy output. She is taking 1 pill of lomotil per day. She checks her blood pressure at home daily and today systolic was 160. Her sisters came to visit and they went to a craft show yesterday that was outside. She felt weakand couldn't walk long distance and had to find a place in the shade to sit and cool down. She is in a wheelchair today as she feels too weak to walk. She is also having nausea and is concerned she is going to vomit. She has normal urinary function. She denies abdominal pain, vomiting, constipation, fevers, chills, or chest pain. REVIEW OF SYSTEMS: A complete review of systems was performed and positive and pertinent negative responses are documented in the history of present illness All other systems were negative. PHYSICAL EXAM: ECOG PS: 1 VITALS: BP 103/67 (BP Location: Left arm) Pulse 72 Temp 36.4 ??C (97.5 ??F) Resp 16 Wt 74.4kg (164 lb) SpO2 98% BMI 30.00 kg/m?? GEN: Calm, conversant, well-appearing female in no apparent distress. Sitting in wheelchair with blanket. HEENT: PERRL, sclerae anicteric and non-injected, MMM, OP clear without erythema or exudates LYMPH: No cervical, supraclavicular lymphadenopathy CV: RRR, no m/r/g PULM/CHEST: Clear to auscultation bilaterally. No wheezes or rales. Unlabored breathing. Port in place and is clean and unremarkable. ABD: Soft, non tender, non distended, bowel sounds present. well healed abdominal surgical scars. Ostomy in LLQ, stoma pink and healthy. EXT: No LE edema, warm and well-perfused SKIN: No rashes over exposed skin. Callousing and minimal skin peeling on toes and balls of feet. Mild erythema. NEURO: A&Ox4, lumber mover grossly intact by conversation, moving all extremities [...] aredisplayed. Labs - Hematology Latest Ref Range 12/11/21 12/25/21 01/10/22 01/15/22 WBC 3.8 - 9.8 K/cumm 3.7 (A) 3.4 (A) 3.5 (A) 4.0 Total Hb, POC 12.1 - 15.1 g/dL 11.6 (A) 12.0 (A) 12.3 13.0 Hct 36.1 - 44.3 % 32.8 (A) 34.3 (A) 36.0 37.3 Plt 140 - 440 K/cumm 110 (A) 99 (A) 108 (A) 115 (A) Neutrophil abs 1.8 - 6.6 K/cumm 2.6 2.0 1.9 2.3 Lymphocytes, abs 1.2 - 3.3 K/cumm 0.4 (A) 0.6 (A) 0.7 (A) 0.9 (A) (A) Abnormal value Comments are available for some flowsheets but are not being displayed. Chem/LFT Lab History Some values may be hidden. Unless noted otherwise, only the newest values recorded on each date aredisplayed. Labs-Chem/LFT Latest Ref Range 12/11/21 12/25/21 01/10/22 01/15/22 Sodium 135 - 145 mmol/L 138 139 138 135 Creatinine 0.60 - 1.10 mg/dL 0.93 1.27 (A) 1.62 (A) 1.96 (A) Bilirubin, total 0.1 - 1.2 mg/dL 0.6 0.5 0.4 0.5 AST 10 - 45 Units/L 32 32 47 (A) 41 ALT 7 - 45 Units/L 22 22 37 31 CrCl- Actual Body Weight (Cockcroft-Gault) 66.2 47.8 37.5 30 (A) Abnormal value Comments are available for some flowsheets but are not being displayed. Tumor Marker History Some values may be hidden. Unless noted otherwise, only the newest values recorded on each date aredisplayed. Tumor Markers Latest Ref Range 09/18/21 10/16/21 11/13/21 12/11/21 Chromogranin A <93 ng/mL 912 (A) 812 (A) 653 (A) 773 (A) (A) Abnormal value Comments are available for some flowsheets but are not being displayed. RADIOGRAPHIC/DIAGNOSTIC REVIEW: CT chest/abdomen/pelvis 10/13/2021: Decreased size and enhancement [...] neuroendocrine tumor with metastases - Continues on Octreotide; due for injection today - CT 10/13/21 with response to treatment - I reviewed her labs today and they are adequate - Next set of scans per protocol. 2. Dehydration: - Multifactorial; we discussed admission for work up vs treating as outpatient - We agreed to hydration today and tomorrow and if not improving will plan to admit - Will hold treatment today - Administer 1L of IV today and additional 1 L IVF tomorrow with recheck of BMP and Mag - Cr 1.96 and BUN 32 - Will give IV Zofran today for nausea 3. Thrombocytopenia: - Platelet 99K on 12/25 4. Bone metastases: - Xgeva; hold today for elevated Cr. 5. Diarrhea - Increased ostomy output - Increase Lomotil and add Imodium 6. TSH elevated - Continue synthroid 75 mcg daily 7. Vitamin D insufficiency/Deficiency: - vitamin D 50 000 international units weekly She will return to clinic in [address]. All of??her and her 's??questions were answered to their satisfaction and they verbalized understanding. Idania Diaz PA-C [facility] Division of Medical Oncology In collaboration with Dr. Eren Arciniega documented in this encounter Miscellaneous Notes * Addendum Note - Yenifer Rizzo - 01/15/2022 1:30 PM CDTAddended by: YENIFER RIZZO on: 01/16/2022 10:14 AM Modules accepted: Orders * Addendum Note - Yenifer Rizzo - 01/15/2022 1:30 PM CDTAddended by: YENIFER RIZZO on: 01/16/2022 10:14 AM Modules accepted: Orders documented in this encounter Plan of Treatment Not on file documented as of this encounter Results * (ABNORMAL) Chromogranin A (01/29/2022 12:40 PM CDT) Pathologist [facility] Chromogranin A 930(H) <93 ng/mL [facility] Comment: Impaired renal or hepatic function or treatment with proton pump inhibitors may result in artifactual elevations of Chromogranin A. ADDITIONAL INFORMATION This test was developed and its performance characteristics determined by [facility] in a manner consistent with [...] a homogeneous time-resolved immunofluorescent assay manufactured by [employer] and performed on the [employer] Kryptor Compact Plus. ? Values obtained with different assay methods or kits may be different and cannot be used interchangeably. ? Test results cannot be interpreted as absolute evidence for the presence or absence of malignant disease. Test Performed by: [facility] [address] [place] [address] Cargo Operations Agent: Immanuel Novak M.D. Ph.D.; CLIA# [id number] Blood 01/29/2022 12:4 0 PM CDT 01/29/2022 12:59 PM CDT Eren Arciniega MD LAB BLOOD ORDERABLES Final Re sult Performing Organization Address [facility] Co de Phone Number [facility] Department [place] [address] * (ABNORMAL) TSH (01/29/2022 12:40 PM CDT) Thyroid Stimulating Hormone 10.20(H) 0.30 - 4.20 mcIUnit/mL [facility] Blood 01/29/2022 12:4 0 PM CDT 01/29/2022 1:11 PM CDT Eren Arciniega MD LAB BLOOD ORDERABLES Final Re sult Performing Organization Address [facility] Co de Phone Number [facility] [place] [address] * (ABNORMAL) Phosphorus (01/29/2022 12:40 PM CDT) Phosphorus, pl 1.6(L) 2.3 - 4.5 mg/dL [facility] Comment:Testing performed by : [facility], [address] [place] [phone] Blood 01/29/2022 12:4 0 PM CDT 01/29/2022 12:43 PM CDT Eren Arciniega MD LAB BLOOD ORDERABLES Final Re sult Performing Organization Address [facility] Co de Phone Number [facility] Department [place] [address] * (ABNORMAL) Magnesium (01/29/2022 12:40 PM CDT) Pathologist [facility] Magnesium 1.2(L) 1.4 - 2.5 mg/dL [facility] Comment:Testing performed by : [facility], [address] [place] [phone] Blood 01/29/2022 12:4 0 PM CDT 01/29/2022 12:43 PM CDT us Eren Arciniega MD LAB BLOOD ORDERABLES Final Re sult Performing Organization Address [facility] Co de Phone Number [facility] Department [place] [address] * (ABNORMAL) Comprehensive metabolic panel (01/29/2022 12:40 PM CDT) Pathologist [facility] Sodium 139 135 - 145 mmol/L [facility] Comment:Testing performed by : [facility], [address] [place] [phone] Potassium, pl 3.9 3.3 - 4.9 mmol/L [facility] Comment:Testing performed by : [facility], [address] [place] [phone] Chloride 107 97 - 110 mmol/L [facility] Comment:Testing performed by : [facility], [address] [place] [phone] CO2 24 22 - 32 mmol/L [facility] Comment:Testing performed by : [facility], [address] [place] [phone] Anion gap 8 2 - 15 mmol/L [facility] Comment:Testing performed by : [facility], [address] [place] [phone] BUN 16 8 - 25 mg/dL [facility] Comment:Testing performed by : [facility], [address] [place] [phone] Creatinine 0.97 0.60 - 1.10 mg/dL [facility] Comment:Testing performed by : [facility], [address] [place] [phone] Glucose 129 70 - 199 mg/dL CERNER [...] was last revised 2017. Testing performed by: [facility], [address] [place] [phone] Calcium 9.5 8.5 - 10.3 mg/dL [facility] Comment:Testing performed by : [facility], [address] [place] [phone] Bilirubin, total 0.5 0.1 - 1.2 mg/dL [facility] Comment:Testing performed by : [facility], [address] [place] [phone] Protein, pl 6.0(L) 6.5 - 8.5 g/dL [facility] Comment:Testing performed by : [facility], [address] [place] [phone] Albumin 4.1 3.5 - 5.0 g/dL [facility] Comment:Testing performed by : [address] [phone] Alk phos 74 40 - 130 Units/L [facility] Comment:Testing performed by : [facility], [address] [place] [phone] ALT 16 7 - 45 Units/L [facility] BL[facility] Comment:Testing performed by : [facility], [address] [place] [phone] AST 24 10 - 45 Units/L A[facility] BLACK Comment:Testing performed by : [facility], [address] [place] [phone] Blood 01/29/2022 12:4 0 PM CDT 01/29/2022 12:43 PM CDT us Eren Arciniega MD LAB BLOOD ORDERABLES Final Re sult [facility] Department [place] [address] * (ABNORMAL) CBC with auto differential (01/29/2022 12:40 PM CDT) WBC 3.2(L) 3.8 - 9.8 K/cumm [facility] Comment:Testing performed by : [facility], [address] [place] [phone] Hgb 11.0(L) 12.1 - 15.1 g/dL [facility] Comment:Testing performed by : [facility], [address] [place] [phone] Hct 30.9(L) 36.1 - 44.3 % [facility] Comment:Testing performed by : [facility], [address] [place] [phone] Plt 88(L) 140 - 440 K/cumm [facility] Comment:Testing performed by : [facility], [address] [place] [phone] MPV 8.1 6.8 - 10.4 fL [facility] Comment:Testing performed by : [address] [phone] RBC 3.00(L) 3.90 - 5.00 M/cumm [facility]J Comment:Testing performed by : [facility], [address] [place] [phone] MCV 102.9(H) 80.0 - 97.6 fL [facility] Comment:Testing performed by : [facility], [address] [place] [phone] MCH 36.6(H) 26.7 - 33.7 pg [facility] Comment:Testing performed by : [facility], [address] [place] [phone] MCHC 35.6(H) 32.7 - 35.5 g/dL [facility] Comment:Testing performed by : [facility], [address] [place] [phone] RDW CV 13.2 11.8 - 14.6 % [facility] Comment:Testing performed by : [facility], [address] [place] [phone] NRBC abs 0.00 0.00 - 0.01 K/cumm [facility] Comment:Testing performed by : [facility], [address] [place] [phone] Blood 01/29/2022 12:4 0 PM CDT 01/29/2022 12:43 PM CDT Eren Arciniega MD LAB BLOOD ORDERABLES Final Re sult [facility] Department [place] [address] * Protein / creatinine ratio, urine, random (01/29/2022 12:28 PM CDT) Protein, ur, quant 23.7 mg/dL [facility] Comment: Interpretive Data No reference range established. Current interpretive data was last revised 2018. Creatinine Ur 208.4 mg/dL [facility] Comment: Interpretive Data No reference range established. Current interpretive data was last revised 2018. Protein/creatinin e ratio 113.7 0.0 - 180.0 mg/g CR [facility] Urine 01/29/2022 12:2 8 PM CDT 01/29/2022 3:15 PM CDT us Eren Arciniega MD LAB URINE ORDERABLES Final Re sult [facility] Department [place] [address] * (ABNORMAL) Comprehensive metabolic panel (01/16/2022 10:53 AM CDT) Sodium 136 135 - 145 mmol/L [facility] Comment:Testing performed by : [facility], [address] [place] [phone] Potassium, pl 4.1 3.3 - 4.9 mmol/L [facility] Comment:Testing performed by : [facility], [address] [place] [phone] Chloride 107 97 - 110 mmol/L [facility] Comment:Testing performed by : [address] [phone] CO2 23 22 - 32 mmol/L [facility] Comment:Testing performed by : [facility], [address] [place] [phone] Anion gap 6 2 - 15 mmol/L [facility] Comment:Testing performed by : [address] [phone] BUN 29(H) 8 - 25 mg/dL [facility] Comment:Testing performed by : [address] [phone] Creatinine 1.84(H) 0.60 - 1.10 mg/dL [facility] Comment:Testing performed by : [facility], [address] [place] [phone] Glucose 121 70 - 199 mg/dL [facility] Comment: [...] was last revised 2017. Testing performed by: [facility], [address] [place] [phone] Calcium 10.2 8.5 - 10.3 mg/dL [facility] Comment:Testing performed by : [facility], [address] [place] [phone] Bilirubin, total 0.5 0.1 - 1.2 mg/dL [facility] Comment:Testing performed by : [facility], [address] [place] [phone] Protein, pl 6.2(L) 6.5 - 8.5 g/dL [facility] Comment:Testing performed by : [facility], [address] [place] [phone] Albumin 4.1 3.5 - 5.0 g/dL [facility] Comment:Testing performed by : [facility], [address] [place] [phone] Alk phos 119 40 - 130 Units/L [facility] Comment:Testing performed by : [address] [phone] ALT 38 7 - 45 Units/L [facility] Comment:Testing performed by : [facility], [address] [place] [phone] AST 52(H) 10 - 45 Units/L [facility] Comment:Testing performed by : [facility], [address] [place] [phone] Blood 01/16/2022 10:5 3 AM CDT 01/16/2022 10:56 AM CDT us Eren Arciniega MD LAB BLOOD ORDERABLES Final Re sult [facility] Department [place] [address] * Magnesium (01/16/2022 10:53 AM CDT) Magnesium 1.6 1.4 - 2.5 mg/dL [facility] Comment:Testing performed by : [facility], [address] [place] [phone] Blood 01/16/2022 10:5 3 AM CDT 01/16/2022 10:56 AM CDT us Eren Arciniega MD LAB BLOOD ORDERABLES Final Re sult [facility] Department [place] [address] documented in this encounter Visit Diagnoses Diagnosis Neuroendocrine carcinoma (HCC)- Primary Other malignant neoplasm of unspecified site Malignant neoplasm metastatic to liver (HCC) Bone metastasis Secondary malignant neoplasm of bone and bone marrow Neuro-endocrine carcinoma (HCC) Other malignant neoplasm of unspecified site Nausea and vomiting, unspecified vomiting type documented in this encounter Orders Appointment Requests Count Last Ordered Date Fi rst Ordered Date ONCBCN CLINIC APPOINTMENT REQUEST 2 022 01/15/2022 ONCBCN LAB APPOINTMENT 1 01/16/2022 documented in this encounter Care Teams Guest Relations Representative Relationship Specialty Start Date End Date Julio César Briseno MD PCP - General 10/01/16 Eren Arciniega MD Referring Physician Medical Oncology 11/25/18 Yohana Bowen MD Radiation Oncologist Radiation Oncology 11/25/18 documented as of this encounter
--- OUTSIDE RECORDS SUMMARY | 2024-06-25 22:21 | XMS_ITS | Encounter Summary ---
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 Eren Cr MD [address] [facility] [address] [place] [address] Phone: tel: fax: [facility] [address] [facility] 7th [place] [address] Phone: tel: Referral ID Status Reason Start Date Expiration Date Visits Re quested Visits Authorized [id number] Closed 06/21/2021 06/26/2024 1 99 Encounter Details Date Type Department Care Team (Late st Contact Info) Description 12/25/2021 9:45 AM CDT Office Visit [facility] [address] [facility] 7th [place] [address] [place] [address] Eren Cr MD [address] [facility] [address] [place] [address] Neuroendocrine carcinoma (CMS/HCC) (HCC) (Primary Dx); Malignant [...] file 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 Gender Identity Not on file Sexual Orientation Straight 02/19/2021 9: 29 AM CDT Occupation Industry Job Start Date Job End Date retired Not on file Not on file Not on file documented as of this encounter Last Filed Vital Signs Vital Sign Reading Time Taken Comments Blood Pressure 133/63 12/25/2021 9:51 AM CDT Pulse 64 12/25/2021 9:51 AM CDT Temperature 36.2 ??C (97.2 ??F) 12/25/2021 9:51 AM CD T Respiratory Rate 16 12/25/2021 9:51 AM CDT Oxygen Saturation 98% 12/25/2021 9:51 AM CDT Inhaled Oxygen Concentration - - Weight 76.7 kg (169 lb 3.2 oz) 12/25/2021 9:51 A M CDT Height - - Body Mass Index 30.95 10/19/2021 4:00 PM CDT documented in this encounter Progress Notes * Eren Cr Jr., MD - 12/25/2021 9:45 AM CDT MEDICAL ONCOLOGY OUTPATIENT ROV NOTE DATE OF VISIT: 12/25/2021 DIAGNOSIS: well differentiated neuroendocrine tumor of ileum [...] time, she also underwent right colectomy in [facility] OR by Dr. Greyson Reeves. [...] 60 mg once daily. Today is cycle 6 of Cabozantinib/placebo (CABINET study). Her dose had been reduced to 40 mg and she stated that she had been feeling much better. Octreotide injection on 12/11/2021. Since she was last seen the hand foot syndrome had resolved. She is eating well with a healthy appetite. She has normal urinary function. She denies abdominal pain, nausea, vomiting, diarrhea, constipation, fevers, or chills. REVIEW OF SYSTEMS: A complete review of systems was performed and positive and pertinent negative responses are documented in the history of present illness All other systems were negative. PHYSICAL EXAM: ECOG PS: 1 VITALS: BP 133/63 (BP Location: Left arm) Pulse 64 Temp 36.2 ??C (97.2 ??F) (Transdermal) Resp 16 Wt 76.7 kg (169 lb 3.2 oz) SpO2 98% BMI 30.95 kg/m?? GEN: Calm, conversant, well-appearing female in no apparent distress HEENT: PERRL, sclerae anicteric and non-injected, MMM, [...] balls of feet. Mild erythema. NEURO: A&Ox4, pecan mallow dipper grossly intact by conversation, moving all extremities [...] aredisplayed. Labs - Hematology Latest Ref Range 11/13/21 11/27/21 12/11/21 12/25/21 WBC 3.8 - 9.8 K/cumm 4.2 3.4 (A) 3.7 (A) 3.4 (A) Total Hb, POC 12.1 - 15.1 g/dL 11.1 (A) 10.2 (A) 11.6 (A) 12.0 (A) Hct 36.1 - 44.3 % 32.0 (A) 28.5 (A) 32.8 (A) 34.3 (A) Plt 140 - 440 K/cumm 110 (A) 97 (A) 110 (A) 99 (A) Neutrophil abs 1.8 - 6.6 K/cumm 2.8 2.1 2.6 2.0 Lymphocytes, abs 1.2 - 3.3 K/cumm 0.5 (A) 0.4 (A) 0.4 (A) 0.6 (A) (A) Abnormal value Comments are available for some flowsheets but are not being displayed. Chem/LFT Lab History Some values may be hidden. Unless noted otherwise, only the newest values recorded on each date aredisplayed. Labs-Chem/LFT Latest Ref Range 11/13/21 11/27/21 12/11/21 12/25/21 Sodium 135 - 145 mmol/L 142 141 138 139 Creatinine 0.60 - 1.10 mg/dL 1.25 (A) 0.92 0.93 1.27 (A) Bilirubin, total 0.1 - 1.2 mg/dL 0.7 0.6 0.6 0.5 AST 10 - 45 Units/L 38 23 32 32 ALT 7 - 45 Units/L 25 14 22 22 CrCl- Actual Body Weight (Cockcroft-Gault) 48.3 68.1 66.2 47.8 (A) Abnormal value Comments are available for [...] tumor with metastases - Continues on Octreotide - CT 10/13/21 with response to treatment - I reviewed her labs today and they are adequate to prceed with cycle 6 of CABINET trial: Cabozantinib/placebo - Next set of scans per protocol. 2. Thrombocytopenia: - Platelet 99K 3. Bone metastases: - xgeva 4. Diarrhea - Stable ostomy output - Continue lomotil prn 5. Hypomagnesemia - Magnesium 1.5 today 6. TSH elevated -on synthroid 75 mcg daily 7. Hand Foot Syndrome - Grade 2 (causing pain, interfering with ambulation). Per study protocol (section 8.2.13) will hold treatment for two weeks. - Today is grade 1, will resume at reduced dose 40 mg daily. - Continue use of thick moisturizer with 20% urea cream. 8. Mouth Sores -resolved 9. Vitamin D insufficiency/Deficiency: - vitamin D 50 000 international units weekly 10. Elevated creatinine- - IVF today. She will return to clinic in 4 weeks to continue CABINET study. All of??her and her 's??questions were answered to their satisfaction and they verbalized understanding. documented in this encounter Plan of Treatment Not on file documented as of this encounter Results * Protein / creatinine ratio, urine, random (01/15/2022 12:52 PM CDT) Protein, ur, quant 55.3 mg/dL [facility] Comment: Interpretive Data No reference range established. Current interpretive data was last revised 2018. Creatinine Ur 441.4 mg/dL [facility] Comment: Interpretive Data No reference range established. Current interpretive data was last revised 2018. Protein/creatinin e ratio 125.3 0.0 - 180.0 mg/g CR [facility] Urine 01/15/2022 12:5 2 PM CDT 01/15/2022 1:02 PM CDT us Eren Cr MD LAB URINE ORDERABLES Final Re sult [facility] Department [place] [address] * (ABNORMAL) Chromogranin A (01/15/2022 12:44 PM CDT) Chromogranin A 1014(H) <93 ng/mL [facility] Comment: Impaired renal or hepatic function or treatment with proton pump inhibitors may result in artifactual elevations of Chromogranin A. ADDITIONAL INFORMATION This test was developed and its performance characteristics determined by [facility] in a manner consistent with [...] a homogeneous time-resolved immunofluorescent assay manufactured by [employer] and performed on the [employer] KrRetrofitor Compact Plus. ? Values obtained with different assay methods or kits may be different and cannot be used interchangeably. ? Test results cannot be interpreted as absolute evidence for the presence or absence of malignant disease. Test Performed by: [facility] [address] [place] [address] Paper Cleaner: Immanuel Novak M.D. Ph.D.; CLIA# [id number] Blood 01/15/2022 12:4 4 PM CDT 01/15/2022 12:57 PM CDT us Eren Cr MD LAB BLOOD ORDERABLES Final Re sult [facility] Department [place] [address] * (ABNORMAL) Comprehensive metabolic panel (01/15/2022 12:43 PM CDT) Sodium 135 135 - 145 mmol/L [facility] Comment:Testing performed by : [facility], [address] [place] [phone] Potassium, pl 4.0 3.3 - 4.9 mmol/L [facility] Comment:Testing performed by : [facility], [address] [place] [phone] Chloride 104 97 - 110 mmol/L [facility] Comment:Testing performed by : [facility], [address] [place] [phone] CO2 23 22 - 32 mmol/L [facility] Comment:Testing performed by : [facility], [address] [place] [phone] Anion gap 8 2 - 15 mmol/L [facility] Comment:Testing performed by : [facility], [address] [place] [phone] BUN 32(H) 8 - 25 mg/dL [facility] Comment:Testing performed by : [facility], [address] [place] [phone] Creatinine 1.96(H) 0.60 - 1.10 mg/dL [facility] Comment:Testing performed by : [facility], [address] [place] [phone] Glucose 113 70 - 199 mg/dL [facility] [...] was last revised 2017. Testing performed by: [place] [phone] Calcium 10.4(H) 8.5 - 10.3 mg/dL [facility] Comment:Testing performed by : [address] [phone] Bilirubin, total 0.5 0.1 - 1.2 mg/dL [facility] Comment:Testing performed by : [facility], [address] [place] [phone] Protein, pl 6.7 6.5 - 8.5 g/dL [facility] Comment:Testing performed by : [address] [phone] Albumin 4.4 3.5 - 5.0 g/dL [facility] Comment:Testing performed by : [address] [phone] Alk phos 105 40 - 130 Units/L [facility] Comment:Testing performed by : [address] [phone] ALT 31 7 - 45 Units/L [facility] Comment:Testing performed by : [address] [phone] AST 41 10 - 45 Units/L [facility] Comment:Testing performed by : [address] [phone] Blood 01/15/2022 12:4 3 PM CDT 01/15/2022 12:46 PM CDT us Eren Cr MD LAB BLOOD ORDERABLES Final Re sult [facility] Department [place] [address] * (ABNORMAL) CBC with auto differential (01/15/2022 12:43 PM CDT) WBC 4.0 3.8 - 9.8 K/cumm [facility] Comment:Testing performed by : [facility], [address] [place] [phone] Hgb 13.0 12.1 - 15.1 g/dL [facility] Comment:Testing performed by : [address] [phone] Hct 37.3 36.1 - 44.3 % [facility] Comment:Testing performed by : [address] [phone] Plt 115(L) 140 - 440 K/cumm [facility] Comment:Testing performed by : [address] [phone] MPV 9.0 6.8 - 10.4 fL [facility] Comment:Testing performed by : [address] [phone] RBC 3.64(L) 3.90 - 5.00 M/cumm [facility] Comment:Testing performed by : [address] [phone] MCV 102.6(H) 80.0 - 97.6 fL [facility] Comment:Testing performed by : [address] [phone] MCH 35.7(H) 26.7 - 33.7 pg [facility] Comment:Testing performed by : [address] [phone] MCHC 34.8 32.7 - 35.5 g/dL [facility] Comment:Testing performed by : [facility], [address] [place] [phone] RDW CV 13.0 11.8 - 14.6 % [facility] Comment:Testing performed by : [facility], [address] [place] [phone] NRBC abs 0.00 0.00 - 0.01 K/cumm [facility] Comment:Testing performed by : [facility], [address] [place] [phone] Blood 01/15/2022 12:4 3 PM CDT 01/15/2022 12:46 PM CDT Result [facility] Eren Cr MD LAB BLOOD ORDERABLES Final Re sult Performing Organization Address [facility]/ZIP Co de Phone Number [facility] Department [place] [address] * (ABNORMAL) Vitamin D 25 hydroxy (01/15/2022 12:43 PM CDT) [facility] Vitamin D 25-OH 22(L) 30 - 80 ng/mL [facility] Blood 01/15/2022 12:4 3 PM CDT 01/15/2022 1:09 PM CDT Result [facility] Eren Cr MD LAB BLOOD ORDERABLES Final Re sult Performing Organization Address [facility] Co de Phone Number [facility] Department [place] [address] * Phosphorus (01/15/2022 12:43 PM CDT) [facility] Phosphorus, pl 3.0 2.3 - 4.5 mg/dL [facility] Comment:Testing performed by : [facility], [address] [place] [phone] Blood 01/15/2022 12:4 3 PM CDT 01/15/2022 12:46 PM CDT Result [facility] Eren Cr MD LAB BLOOD ORDERABLES Final Re sult [facility] Department [place] [address] * (ABNORMAL) Lipid panel (01/15/2022 12:43 PM CDT) [facility] Signature Cholesterol 193 30 - 199 mg/dL [facility] Comment: Interpretive Data Ages < or [...] revised on 2018. Triglycerides 298(H) <=149 mg/dL [facility] Comment: Interpretive Data Ages < or [...] revised on 2018. HDL 49 >=40 mg/dL [facility] Comment: Interpretive Data Ages < or = [...] on 2018. LDL, calculated 84 <=129 mg/dL [facility] Comment: Interpretive Data Ages < or = [...] revised on 2018. Non-HDL Cholesterol 144 mg/dL [facility] Comment: Interpretive Data Ages < or = [...] last revised on 2018. Chol/HDL ratio 4 [facility] Blood 01/15/2022 12:4 3 PM CDT 01/15/2022 1:09 PM CDT Eren Cr MD LAB BLOOD ORDERABLES Final Re sult Performing Organization Address [facility] Co de Phone Number [facility] Department [place] [address] * (ABNORMAL) TSH (01/15/2022 12:43 PM CDT) Thyroid Stimulating Hormone 9.39(H) 0.30 - 4.20 mcIUnit/mL [facility] Blood 01/15/2022 12:4 3 PM CDT 01/15/2022 1:09 PM CDT Eren Cr MD LAB BLOOD ORDERABLES Final Re sult Performing Organization Address [facility] Co de Phone Number [facility] [place] [address] * Magnesium (01/15/2022 12:43 PM CDT) Magnesium 1.7 1.4 - 2.5 mg/dL [facility] Comment:Testing performed by : [facility], [address] [place] [phone] Blood 01/15/2022 12:4 3 PM CDT 01/15/2022 12:46 PM CDT Eren Cr MD LAB BLOOD ORDERABLES Final Re sult Performing Organization Address City/[facility] Co de Phone Number [facility] Department [place] [address] documented in this encounter Visit Diagnoses Diagnosis Neuroendocrine carcinoma (HCC)- Primary Other malignant neoplasm of unspecified site 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) Bone metastasis Secondary malignant neoplasm of bone and bone marrow Neuro-endocrine carcinoma (HCC) Other malignant neoplasm of unspecified site documented in this encounter Orders Appointment Requests Count Last Ordered Date Fi rst Ordered Date ONCBCN CLINIC APPOINTMENT REQUEST 2 022 12/25/2021 ONCBCN INJECTION APPOINTMENT REQUEST 1 01/05 ONCBCN LAB APPOINTMENT 1 01/15/2022 ONCBCN TAKE HOME STUDY DRUG APPT 1 01/16/20 22 documented in this encounter Care Teams Special Ed Assistant Relationship Specialty Start Date End Date Julio César Briseno MD PCP - General 10/01/16 Eren Cr MD Referring Physician Medical Oncology 11/25/18 Yohana Bowen MD Radiation Oncologist Radiation Oncology 11/25/18 documented as of this encounter
--- OUTSIDE RECORDS SUMMARY | 2024-06-25 22:21 | XMS_ITS | Encounter Summary ---
Author Organization [facility] Address [address] [place] [address] Phone Care Team Providers Care Surveillance Officer Name Role Phone Julio César Briseno MD Primary Care Provider [phone] Eren Cr MD Unavailable [phone] Yohana Bowen MD Unavailable Reason for Visit * Reason Comments Injections sandostatin OP Infusion [place] NS, Imodium, zofr an * Episode Based Medications (Routine) - Authorized Specialty Diagnoses / Procedures Referred By Contac t Referred To Contact Oncology Diagnoses Neuroendocrine carcinoma (HCC) 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 female who presents for the following injection: Sandostatin. Nursing Assessment Nursing Assessment Appetite: Fair Diarrhea: Yes Constipation: No Existing Patients: Any falls since your last visit?: No New Patients: Any falls since your last visit?: N/A Fatigue: Occassional Mouth Sores: No Nausea/Vomiting: Yes Neurological symptoms: No Pain: Yes Peripheral Neuropathy: No Pt states has potential to be ?: No Shortness of Breath?: No Lungs auscultated PRN: No Pt is on oxygen?: No Skin Condition/Temp: Warm, Dry Oral Mucosa Grade: Normal (0) Abdomen: Soft Swelling: No Additional Notes: BP: 103/67 Temp: 36.4 ??C (97.5 ??F) Pulse: 72 Resp: 16 SpO2: 98 % Weight: 74.4 kg (164 lb) Patient: met treatment parameters La Chung tolerated injection well Additional Notes: Discharge Plan Discharge instructions given to patient. Discharge Mode: Wheelchair Accompanied by: Spouse Discharged To: Home * Brii Stevens RN - 01/15/2022 2:30 PM CDT Pt here for IVF, zofran and imodium. 1 liter of NS infused over 2hr. Pt tolerated infusion well. Port flushed with normal saline and heparin. Positive blood return obtained. Needle removed and bandaid applied. Pt discharged via wheelchair with . 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 For IM intragluteal administration only- alternate gluteal sites. Shake.Indications:Maligna nt neoplasm metastatic to liver (HCC),Neuroendocrine carcinoma (HCC) Given 01/15/2022 4:37 PM CDT 30 mg Left Dorsogluteal/B uttock ondansetron (ZOFRAN) injection 8 mg 8 mg, intravenous, Administer over 2 Minutes, Once, On Sat01/15/22 at 1515, For 1 doseIndications:Neuroendo crine carcinoma (HCC) Given 01/15/2022 2:59 PM CDT 8 mg sodium chloride 0.9% bolus 1,000 mL 1,000 mL, intravenous, at 500 mL/hr, Administer over 2 Hours, Once, On Sat01/15/22 at 1515, For 1 doseIndications:Neuroendo crine carcinoma (HCC) New Bag 01/15/2022 2:47 PM CDT 1,000 mL 500 mL/hr documented in this encounter Orders Nursing Count Last Ordered Date First Orde red Date ONCBCN NURSING COMMUNICATION [id number] 2 01/15 Appointment Requests Count Last Ordered Date Fi rst Ordered Date ONCBCN INJECTION APPOINTMENT REQUEST 1 01/05 documented in this encounter Care Teams Surveillance Officer Relationship Specialty Start Date End Date Julio César Briseno MD PCP - General 10/01/16 Eren Cr MD Referring Physician Medical Oncology 11/25/18 Yohana Bowen MD Radiation Oncologist Radiation Oncology 11/25/18 documented as of this encounter
--- OUTSIDE RECORDS SUMMARY | 2024-06-25 22:21 | XMS_ITS | Encounter Summary ---
Author Organization [facility] Address [address] [place] [address] Phone Care Team Providers Care Public Welfare Director Name Role Phone Julio César Briseno MD Primary Care Provider Eren Cr MD Unavailable [phone] Yohana Bowen MD Unavailable Encounter Details Date Type Department Care Team (Late st Contact Info) Description 01/29/2022 Orders Only [facility] Oncology [address] [facility] 7th [place] [address] [place] [address] Eren Cr MD [address] [facility] [address] [place] [address] Social History Tobacco Use Types Packs/Day Years [...] on file 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
--- OUTSIDE RECORDS SUMMARY | 2024-06-25 22:21 | XMS_ITS | Encounter Summary ---
Author Organization [facility] Healthcare Address [address] [place] [address] Care Team Providers Care Front Office Clerk Name Role Phone Julio César Briseno MD Primary Care Provider [phone] Eren Cr MD Unavailable [phone] Yohana Bowen MD Unavailable Encounter Details Date Type Department Care Team (Latest Contact Info) Description 12/25/2021 11:05 AM CDT - 12/25/2021 11:59 PM CDT Hospital Encounter [facility] [address] [place] [address] Neuro-endocrine carcinoma (CMS/HCC) (HCC) Discharge Disposition: Discharge [...] file Legal Sex Female 2:41 PM TECHNICAL SPEC Gender Identity Not on file Sexual Orientation [...] capsuleIndications :supplement Take 1 tablet by mouth early intervention specialist before breakfast 07/04/2016 4 cholecalciferol (VITAMIN D-3) 2,000 unit capsule Take 1 capsule (2,000 Units total) by mouth daily 30 capsule 2 04/25/2019 3 cholestyramine (QUESTRAN) 4 gram packet Take 1 packet by mouth 3 (three) times a day with meals 270 packet 3 09/04/2019 2 clotrimazole-betam ethasone (LOTRISONE) cream Apply 1 Application topically daily as needed (rash) 4 coenzyme [id number] E 100-5 mg-unit capsuleIndications :supplement Take 1 tablet by mouth early intervention specialist before breakfast 4 diphenoxylate-atro pine (LOMOTIL) [...] dose).?? Avoid Jas's Wort, grapefruit products and [place] oranges while on treatment. placed on hold 09/26/22 for covid 01/29/2022 4 levothyroxine (Synthroid) 75 mcg tabletIndications: Hypothyroidism due to medication Take 1 tablet (75 mcg total) by mouth early intervention specialist before breakfast 30 tablet 3 11/16/2021 2 [...] Priority Date/Time Associated Diagnosis Comments EGFR STAT 12/25/2021 9:25 AM CDT Neuro-endocrine carcinoma (CMS/HCC) (HCC) DIFFERENTIAL AUTO STAT 12/25/2021 9:2 5 AM CDT Neuro-endocrine carcinoma (CMS/HCC) (HCC) CBC WITH AUTO DIFFERENTIAL STAT 12/25/2021 9:25 AM CDT Neuro-endocrine carcinoma (CMS/HCC) (HCC) PHOSPHORUS STAT 12/25/2021 9:25 AM CDT Neuro-endocrine carcinoma (CMS/HCC) (HCC) MAGNESIUM STAT 12/25/2021 9:25 AM CDT Neuro-endocrine carcinoma (CMS/HCC) (HCC) COMPREHENSIVE METABOLIC PANEL STAT 12/25/2021 9:25 AM CDT Neuro-endocrine carcinoma (CMS/HCC) (HCC) documented in this encounter Results * (ABNORMAL) eGFR (12/25/2021 9:25 AM CDT) Pathologist [facility] eGFR 45(L) 90 - 130 mL/min/1. 73 m2 [facility] Comment: Interpretive Data Reference Interval Normal [...] was last reviewed 2021. Testing performed by: [facility], [address] [place] [phone] Blood 12/25/2021 9:25 AM CDT 12/25/2021 9:28 AM CDT Eren Cr MD LAB BLOOD ORDERABLES Final Re sult [facility] Department [place] [address] * (ABNORMAL) Differential, auto (12/25/2021 9:25 AM CDT) Neutrophil abs 2.0 1.8 - 6.6 K/cumm [facility] Comment:Testing performed by : [facility], [address] [place] [phone] Lymphocyte abs 0.6(L) 1.2 - 3.3 K/cumm [facility] Comment:Testing performed by : [facility], [address] [place] [phone] Monocyte abs 0.3 0.2 - 1.2 K/cumm [facility] Comment:Testing performed by : [facility], [address] [place] [phone] Eosinophil abs 0.5 0.0 - 0.5 K/cumm [facility] Comment:Testing performed by : [facility], [address] [place] [phone] Basophil abs 0.0 0.0 - 0.2 K/cumm [facility] Comment:Testing performed by : [facility], [address] [place] [phone] Neutrophil pct 59.7 % [facility] Comment: Interpretive Data Percent cell count reference ranges are not reported, since discordance with absolute values may lead to misinterpretation of CBC data. Current Interpretive Data was last revised on 2017. Testing performed by: [facility], [address] [place] [phone] Lymphocyte pct 16.3 % [facility] Comment: Interpretive Data Percent cell count reference ranges are not reported, since discordance with absolute values may lead to misinterpretation of CBC data. Current Interpretive Data was last revised on 2017. Testing performed by: [facility], [address] [place] [phone] Monocyte pct 9.0 % [facility] Comment:Testing performed by : [facility], [address] [place] [phone] Eosinophil pct 13.9 % [facility] Comment:Testing performed by : [address] [phone] Basophil pct 1.1 % [facility] Comment:Testing performed by : [facility], [address] [place] [phone] Blood 12/25/2021 9:25 AM CDT 12/25/2021 9:28 AM CDT Eren Cr MD LAB BLOOD ORDERABLES Final Re sult [facility] Department [place] [address] * (ABNORMAL) CBC with auto differential (12/25/2021 9:25 AM CDT) WBC 3.4(L) 3.8 - 9.8 K/cumm [facility] Comment:Testing performed by : [facility], [address] [place] [phone] Hgb 12.0(L) 12.1 - 15.1 g/dL [facility] Comment:Testing performed by : [facility], [address] [place], [place] [phone] Hct 34.3(L) 36.1 - 44.3 % [facility] Comment:Testing performed by : [facility], [address] [place] [address] Plt 99(L) 140 - 440 K/cumm [facility] Comment:Testing performed by : [facility], [address] [place] [address] MPV 9.1 6.8 - 10.4 fL [facility] Comment:Testing performed by : [place] [address] RBC 3.31(L) 3.90 - 5.00 M/cumm [facility] Comment:Testing performed by : [place] [address] MCV 103.5(H) 80.0 - 97.6 fL [facility] Comment:Testing performed by : [facility], [address] [place], [place] [phone] MCH 36.2(H) 26.7 - 33.7 pg [facility] Comment:Testing performed by : [place] [address] MCHC 35.0 32.7 - 35.5 g/dL [facility] Comment:Testing performed by : [place] [address] RDW CV 13.3 11.8 - 14.6 % [facility] Comment:Testing performed by : [facility], [address] [place] [address] NRBC abs 0.00 0.00 - 0.01 K/cumm [facility] Comment:Testing performed by : [place] [address] Blood 12/25/2021 9:25 AM CDT 12/25/2021 9:28 AM CDT us Eren Cr MD LAB BLOOD ORDERABLES Final Re sult [facility] Department [place] [address] * (ABNORMAL) Comprehensive metabolic panel (12/25/2021 9:25 AM CDT) Sodium 139 135 - 145 mmol/L [facility] Comment:Testing performed by : [facility], [address] [place] [phone] Potassium, pl 4.0 3.3 - 4.9 mmol/L [facility] Comment:Testing performed by : [facility], [address] [place] [phone] Chloride 108 97 - 110 mmol/L [facility] Comment:Testing performed by : [facility], [address] [place] [phone] CO2 25 22 - 32 mmol/L [facility] Comment:Testing performed by : [facility], [address] [place] [phone] Anion gap 6 2 - 15 mmol/L [facility] Comment:Testing performed by : [facility], [address] [place] [phone] BUN 18 8 - 25 mg/dL [facility] Comment:Testing performed by : [address] [address] Creatinine 1.27(H) 0.60 - 1.10 mg/dL [facility] Comment:Testing performed by : [facility], [address] [place] [phone] Glucose 111 70 - 199 mg/dL [facility] Comment: Interpretive Data Fasting glucose [...] was last revised 2017. Testing performed by: [facility], [address] [place] [phone] Calcium 9.9 8.5 - 10.3 mg/dL [facility] Comment:Testing performed by : [facility], [address] [place] [phone] Bilirubin, total 0.5 0.1 - 1.2 mg/dL [facility] Comment:Testing performed by : [facility], [address] [place] [phone] Protein, pl 6.3(L) 6.5 - 8.5 g/dL [facility] Comment:Testing performed by : [facility], [address] [place] [phone] Albumin 4.1 3.5 - 5.0 g/dL [facility] Comment:Testing performed by : [facility], [address] [place] [phone] Alk phos 84 40 - 130 Units/L [facility] Comment:Testing performed by : [facility], [address] [place] [phone] ALT 22 7 - 45 Units/L [facility] Comment:Testing performed by : [facility], [address] [place] [phone] AST 32 10 - 45 Units/L [facility] Comment:Testing performed by : [facility], [address] [place] [phone] Blood 12/25/2021 9:25 AM CDT 12/25/2021 9:28 AM CDT us Eren Cr MD LAB BLOOD ORDERABLES Final Re sult [facility] Department [place] [address] * Magnesium (12/25/2021 9:25 AM CDT) Magnesium 1.5 1.4 - 2.5 mg/dL [facility] Comment:Testing performed by : [facility], [address] [place] [phone] Blood 12/25/2021 9:25 AM CDT 12/25/2021 9:28 AM CDT Eren Cr MD LAB BLOOD ORDERABLES Final Re sult Performing Organization Address [facility] Co de Phone Number [facility] [place] [address] * Phosphorus (12/25/2021 9:25 AM CDT) Phosphorus, pl 2.3 2.3 - 4.5 mg/dL [facility] Comment:Testing performed by : [facility], [address] [place] [phone] Blood 12/25/2021 9:25 AM CDT 12/25/2021 9:28 AM CDT Eren Cr MD LAB BLOOD ORDERABLES Final Re sult Performing Organization Address [facility] [place] [address] documented in this encounter Visit Diagnoses Diagnosis Neuro-endocrine carcinoma (HCC) Other malignant neoplasm of unspecified site documented in this encounter Care Teams Front Office Clerk Relationship Specialty Start Date End Date Julio César Briseno MD PCP - General 10/01/16 Eren Cr MD Referring Physician Medical Oncology 11/25/18 Yohana Bowen MD Radiation Oncologist Radiation Oncology 11/25/18 documented as of this encounter
--- OUTSIDE RECORDS SUMMARY | 2024-06-25 22:21 | XMS_ITS | Encounter Summary ---
Author Organization [facility] Address [address] [place] [address] Phone Care Team Providers Care Looseleaf Binder Coverer Name Role Phone Julio César Briseno MD Primary Care Provider [phone] Eren Cr MD Unavailable [phone] Yohana Bowen MD Unavailable Reason for Visit * Episode Based Medications (Routine) - Closed Specialty Diagnoses / Procedures Referred By Evelyne bowman Referred To Contact Diagnoses Neuro-endocrine carcinoma (HCC) Procedures study [id number] phase III cabozantinib Eren Cr MD [address] [facility] [address] [place] [address] Phone: tel: fax: [facility] [address] [facility] 7[address] [place] [address] Phone: tel: Referral ID Status Reason Start Date Expiration Date Visits Re quested Visits Authorized [id number] Closed 06/21/2021 06/26/2024 1 99 Encounter Details Date Type Department Care Team (Latest Contact Info) Description 01/29/2022 12:30 PM CDT Clinical Support [facility] 7th [place] [address] [place] [address] Neuro-endocrine carcinoma (CMS/HCC) (HCC) (Primary Dx); Hypophosphatemia [...] on file 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 Gender Identity Not on file Sexual [...] Once as needed, line care, Starting on Sat01/29/22 at 1245, Flush with Heparin immediately prior to de-accessing port.Indications:Hypophosphate jaycee Given 01/29/2022 12:46 PM CDT 500 Units sodium chloride 0.9% flush 10 mL 10 mL, intravenous, As needed, line care, Starting on Sat01/29/22 at 1245, Flush pre and post IV catheter use.Indications:Hypophosphatem ia Given 01/29/2022 12:45 PM CDT 10 mL documented in this encounter Orders Appointment Requests Count Last Ordered Date Fi rst Ordered Date ONCBCN LAB APPOINTMENT 1 01/29/2022 documented in this encounter Care Teams Looseleaf Binder Coverer Relationship Specialty Start Date End Date Julio César Briseno MD PCP - General 10/01/16 Eren Cr MD Referring Physician Medical Oncology 11/25/18 Yohana Bowen MD Radiation Oncologist Radiation Oncology 11/25/18 documented as of this encounter
--- OUTSIDE RECORDS SUMMARY | 2024-06-25 22:21 | XMS_ITS | Encounter Summary ---
Author Organization [facility] Address [address] [place] [address] Phone Care Team Providers Care Timber Robber Name Role Phone Julio César Briseno MD Primary Care Provider [phone] Eren Cr MD Unavailable [phone] Yohana Bowen MD Unavailable Encounter Details Date Type Department Care Team (Late st Contact Info) Description 02/01/2022 Orders Only [facility] [address] [place] [address] Eren Cr MD [address] [place], [place] [id number] Social History Tobacco Use Types Packs/Day Years [...] on file 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
--- OUTSIDE RECORDS SUMMARY | 2024-06-25 22:21 | XMS_ITS | Encounter Summary ---
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) Procedures CT chest abdomen pelvis with contrast Eren Wu MD [address] [place] [address] Phone: tel: fax: [address] [phone] Referral ID Status Reason Start Date Expiration Date Visits Re quested Visits Authorized [id number] Closed 01/29/2022 02/28/2023 1 1 Reason for Visit * Episode Based Medications (Routine) - Closed Specialty Diagnoses / Procedures [facility] Referred To Contact Diagnoses Neuro-endocrine carcinoma (HCC) Procedures study [id number] phase III cabozantinib Eren Wu MD [address] [facility] [address] [place] [address] Phone: tel: fax: [facility] [address] [facility] 7th [place] [address] Phone: tel: Referral ID Status Reason Start Date Expiration Date Visits Re quested Visits Authorized [id number] Closed 06/21/2021 06/26/2024 1 99 Encounter Details Date Type Department Care Team (Late st Contact Info) Description 01/29/2022 1:30 PM CDT Office Visit [facility] 7th [place] [address] [place] [address] Eren uW MD [address] [facility] [address] [place] [address] Neuro-endocrine carcinoma (CMS/HCC) (HCC) (Primary [...] on file Legal Sex Female 2:41 PM [employer]UM[employer] Gender Identity Not on file Sexual Orientation Straight 02/19/2021 9: 29 AM CDT Occupation Industry Job Start Date Job End Date retired Not on file Not on file Not on file documented as of this encounter Last Filed Vital Signs Vital Sign Reading Time Taken Comments Blood Pressure 108/67 01/29/2022 1:02 PM CDT Pulse 81 01/29/2022 1:02 PM CDT Temperature 36.4 ??C (97.5 ??F) 01/29/2022 1:02 PM CD T Respiratory Rate 18 01/29/2022 1:02 PM CDT Oxygen Saturation 98% 01/29/2022 1:02 PM CDT Inhaled Oxygen Concentration - - Weight 76.9 kg (169 lb 9.6 oz) 01/29/2022 1:02 P M CDT Height - - Body Mass Index 31.02 10/19/2021 4:00 PM CDT documented in this encounter Progress Notes * Idania Diaz PA - 01/29/2022 1:30 PM CDT MEDICAL ONCOLOGY OUTPATIENT ROV NOTE DATE OF VISIT: 01/29/2022 DIAGNOSIS: well differentiated neuroendocrine tumor of ileum [...] 20. 08/15/2020 continue monthly Octreotide LAR injections . 12/27/2020 PET - progressive disease. Chromogranin A was rising . 01/30/2021 Start Afinitor 10 mg PO daily [...] presents to clinic today with minimal complaints. Since receiving IV hydration she feels much better. She only has dizziness after bending over. She is taking Lomotil and he ostomy output has decreased. She is eating well with a healthy appetite. Her weight is stable. She has normal urinary function. She denies abdominal pain, nausea, vomiting, diarrhea, constipation, fevers, or chills. REVIEW OF SYSTEMS: A complete review of systems was performed and positive and pertinent negative responses are documented in the history of present illness All other systems were negative. PHYSICAL EXAM: ECOG PS: 1 VITALS: BP 108/67 (BP Location: Right arm) Pulse 81 Temp 36.4 ??C (97.5 ??F) (Transdermal) Resp 18 Wt 76.9 kg (169 lb 9.6 oz) SpO2 98% BMI 31.02 kg/m?? GEN: Calm, conversant, well-appearing female in [...] balls of feet. Mild erythema. NEURO: A&Ox4, hydrogeology professor grossly intact by conversation, moving all extremities [...] aredisplayed. Labs - Hematology Latest Ref Range 01/10/22 01/15/22 01/16/22 01/29/22 WBC 3.8 - 9.8 K/cumm 3.5 (A) 4.0 3.1 (A) 3.2 (A) Total Hb, POC 12.1 - 15.1 g/dL 12.3 13.0 12.2 11.0 (A) Hct 36.1 - 44.3 % 36.0 37.3 35.3 (A) 30.9 (A) Plt 140 - 440 K/cumm 108 (A) 115 (A) 107 (A) 88 (A) Neutrophil abs 1.8 - 6.6 K/cumm 1.9 2.3 1.9 1.8 Lymphocytes, abs 1.2 - 3.3 K/cumm 0.7 (A) 0.9 (A) 0.5 (A) 0.5 (A) (A) Abnormal [...] date aredisplayed. Tumor Markers Latest Ref Range 10/16/21 11/13/21 12/11/21 01/15/22 Chromogranin A <93 ng/mL 812 (A) 653 (A) 773 (A) 1014 (A) (A) Abnormal value Comments are available [...] they are adequate to proceed with cycle 7 of CABINET study - Next set of scans per protocol. - Per study protocol she developed grade 2 diarrhea and nausea. The study medication was held and will be resumed at a lower dose of 20 mg. 2. Dehydration: - Resolved; Cr and BUN at baseline 3. Thrombocytopenia: - Platelet 99K on 12/25 4. Bone metastases: - Xgeva - Monitor Cr, Phos, and Calcium 5. Diarrhea - Increased ostomy output - Continue Lomotil and add Imodium as prescribed 6. TSH elevated - Continue synthroid 75 mcg daily 7. Vitamin D insufficiency/Deficiency: - Citamin D 50 000 international units weekly She will return to clinic in [address] imaging. All of??her and her 's??questions were answered to their satisfaction and they verbalized understanding. Idania Diaz PA-C [facility] Division of Medical Oncology In collaboration with Dr. Eren Wu documented in this encounter Miscellaneous Notes * Addendum Note - Eren Wu Jr., MD - 01/29/2022 1:30 PM CDTAddended by: EREN WU on: 01/29/2022 03:36 PM Modules accepted: Orders documented in this encounter Plan of Treatment Not on file documented as of this encounter Results * (ABNORMAL) Chromogranin A (02/22/2022 10:55 AM CDT) Chromogranin A 874(H) <93 ng/mL [facility] Comment: Impaired renal [...] a homogeneous time-resolved immunofluorescent assay manufactured by [employer] and performed on the BRAH[employer] Kryptor Compact Plus. ? Values obtained with different assay methods or kits may be different and cannot be used interchangeably. ? Test results cannot be interpreted as absolute evidence for the presence or absence of malignant disease. Test Performed by: [facility] [address] [place] [address] Numerical Control Machine Tool Operator: Immanuel Novak M.D. Ph.D.; CLIA# [id number] Blood 02/22/2022 10:5 5 AM CDT 02/22/2022 1:20 PM CDT us Eren Wu MD LAB BLOOD ORDERABLES Final Re sult [facility] Department [place] [address] * (ABNORMAL) Comprehensive metabolic panel (02/22/2022 10:55 AM CDT) [facility] Sodium 143 135 - 145 mmol/L [facility] Comment:Testing performed by : [facility], [address] [place] [address] Potassium, pl 4.2 3.3 - 4.9 mmol/L [facility] Chloride 109 97 - 110 mmol/L [facility] CO2 27 22 - 32 mmol/L [facility] Anion gap 7 2 - 15 mmol/L [facility] BUN 14 8 - 25 mg/dL [facility] Creatinine 1.12(H) 0.60 - 1.10 mg/dL [facility] Glucose 94 70 - 199 mg/dL [facility] [...] 2017. Calcium 10.2 8.5 - 10.3 mg/dL [facility] Bilirubin, total 0.7 0.1 - 1.2 mg/dL [facility] Protein, pl 6.4(L) 6.5 - 8.5 g/dL [facility] Albumin 4.0 3.5 - 5.0 g/dL [facility] Alk phos 68 40 - 130 Units/L [facility] ALT 23 7 - 45 Units/L [facility] AST 33 10 - 45 Units/L [facility] Blood 02/22/2022 10:5 5 AM CDT 02/22/2022 10:57 AM CDT Eren Wu MD LAB BLOOD ORDERABLES Final Re sult [facility] Department [place] [address] * (ABNORMAL) CBC with auto differential (02/22/2022 10:55 AM CDT) WBC 3.9 3.8 - 9.9 K/cumm [facility] Comment:Testing performed by : [address] [address] Hgb 11.0(L) 11.9 - 15.5 g/dL [facility] Comment:Testing performed by : [address] [address] Hct 32.7(L) 35.6 - 45.5 % [facility] Comment:Testing performed by : [address] [address] Plt 98(L) 150 - 400 K/cumm [facility] Comment:Testing performed by : [address] [address] MPV 10.7 9.1 - 12.3 fL [facility] RBC 3.25(L) 3.90 - 5.20 M/cumm [facility] MCV 100.6(H) 81.3 - 96.4 fL [facility] MCH 33.8(H) 27.1 - 33.3 pg [facility] MCHC 33.6 32.3 - 35.7 g/dL [facility] RDW CV 13.6 11.1 - 14.9 % [facility] RDW SD 50.1(H) 35.7 - 48.1 fL [facility] NRBC abs 0.00 0.00 - 0.01 K/cumm [facility] Blood 02/22/2022 10:5 5 AM CDT 02/22/2022 10:57 AM CDT Eren Wu MD LAB BLOOD ORDERABLES Final Re sult Performing Organization Address [facility] de Phone Number [facility] Department [place] [address] * (ABNORMAL) Vitamin D 25 hydroxy (02/22/2022 10:55 AM CDT) Vitamin D 25-OH 26(L) 30 - 80 ng/mL [facility] Blood 02/22/2022 10:5 5 AM CDT 02/22/2022 12:37 PM CDT Eren Wu MD LAB BLOOD ORDERABLES Final Re sult Performing Organization Address [facility] de Phone Number [facility] [place] [address] * Phosphorus (02/22/2022 10:55 AM CDT) Phosphorus, pl 2.4 2.3 - 4.5 mg/dL [facility] Comment:Testing performed by : [facility], [address] [place] [address] Blood 02/22/2022 10:5 5 AM CDT 02/22/2022 10:57 AM CDT Eren Wu MD LAB BLOOD ORDERABLES Final Re sult Performing Organization Address City/[facility]/ZIP Co de Phone Number [facility] Department [place] [address] * (ABNORMAL) Lipid panel (02/22/2022 10:55 AM CDT) [facility] Signature Cholesterol 174 30 - 199 mg/dL [facility] Comment: Interpretive Data Ages [...] revised on 2018. Triglycerides 217(H) <=149 mg/dL [facility] Comment: Interpretive Data Ages < or = [...] 2018. HDL 55 >=40 mg/dL [facility] Comment: [...] LDL, calculated 76 <=129 mg/dL [facility] Comment: [...] revised on 2018. Non-HDL Cholesterol 119 mg/dL [facility] Comment: Interpretive [...] ratio 3 [facility] Blood 02/22/2022 10:5 5 AM CDT 02/22/2022 12:37 PM CDT Eren Wu MD LAB BLOOD ORDERABLES Final Re sult Performing Organization Address [facility] Co de Phone Number [facility] [place] [address] * Magnesium (02/22/2022 10:55 AM CDT) Magnesium 1.7 1.4 - 2.5 mg/dL [facility] Comment:Testing performed by : [facility], [address] [place] [id number] Blood 02/22/2022 10:5 5 AM CDT 02/22/2022 10:57 AM CDT Eren Wu MD LAB BLOOD ORDERABLES Final Re sult Performing Organization Address [facility] Co de Phone Number [facility] [place] [address] * CT chest abdomen pelvis with contrast [...] with colonoscopy is recommended. Dictated by: Soniya Fraum, D.O. The radiology attending physician has personally reviewed this study, and had reviewed and/or edited this written report and agrees with it. Electronically signed by: Manny Loya M.D., Ph.D us Eren Wu MD IMG CT PROCEDURES Final Resul t [...] Date ONCBCN CLINIC APPOINTMENT REQUEST 2 022 01/29/2022 ON[facility]N INJECTION APPOINTMENT REQUEST 1 02/05 [facility] LAB APPOINTMENT 1 02/22/2022 ON[facility]N TAKE HOME STUDY DRUG APPT 2 02/23/20 22 01/29/2022 documented in this encounter Care Teams Automatic Shirring Machine Operator Relationship Specialty Start Date End Date Julio César Briseno MD PCP - General 10/01/16 Eren Wu MD Referring Physician Medical Oncology 11/25/18 Yohana Bowen MD Radiation Oncologist Radiation Oncology 11/25/18 documented as of this encounter
--- OUTSIDE RECORDS SUMMARY | 2024-06-25 22:21 | XMS_ITS | Encounter Summary ---
Author Organization [facility] Healthcare Address [address] [place] [address] Care Team Providers Care Contract Processor Name Role Phone Julio César Briseno MD Primary Care Provider [phone] Eren Cr MD Unavailable [phone] Yohana Bowen MD Unavailable Encounter Details Date Type Department Care Team (Latest Contact Info) Description 01/16/2022 5:26 PM CDT - 01/16/2022 11:59 PM CDT Hospital Encounter 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 Avoid [place]'s Wort, grapefruit products and Bicknell oranges while on treatment. 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 30 tablet 3 11/16/2021 2 [...] Priority Date/Time Associated Diagnosis Comments EGFR STAT 01/18/2022 2:04 PM CDT 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) Neuro-endocrine carcinoma (CMS/HCC) (HCC) Dehydration BASIC METABOLIC PANEL STAT 01/18/2022 2:04 PM CDT 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) Neuro-endocrine carcinoma (CMS/HCC) (HCC) Dehydration EGFR Routine 01/16/2022 10:53 AM CDT 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) Bone metastasis (CMS/HCC) (HCC) Nausea and vomiting, unspecified vomiting type DIFFERENTIAL AUTO Routine 01/16/2022 10: 53 AM CDT Neuro-endocrine carcinoma (CMS/HCC) (HCC) CBC WITH AUTO DIFFERENTIAL Routine 01/16/2022 10:53 AM CDT Neuro-endocrine carcinoma (CMS/HCC) (HCC) PHOSPHORUS Routine 01/16/2022 10:53 AM CDT Neuro-endocrine carcinoma (CMS/HCC) (HCC) MAGNESIUM Routine 01/16/2022 10:53 AM CDT 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) Bone metastasis (CMS/HCC) (HCC) Nausea and vomiting, unspecified vomiting type COMPREHENSIVE METABOLIC PANEL Routine 01/16/2022 10:53 AM CDT 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) Bone metastasis (CMS/HCC) (HCC) Nausea and vomiting, unspecified vomiting type documented in this encounter Results * (ABNORMAL) eGFR (01/18/2022 2:04 PM CDT) eGFR 31(L) 90 - 130 mL/min/1. 73 m2 JASON [...] was last reviewed 2021. Testing performed by: [facility], [address] [place] [phone] Blood 01/18/2022 2:04 PM CDT 01/18/2022 2:05 PM CDT Eren Cr MD LAB BLOOD ORDERABLES Final Re sult JASON LEAVITT [facility] Department [place] [address] * (ABNORMAL) Basic metabolic panel (01/18/2022 2:04 PM CDT) Sodium 138 135 - 145 mmol/L CERMINNIE BJ Comment:Testing performed by : [facility], [address] [place] [phone] Potassium, pl 4.0 3.3 - 4.9 mmol/L CERMINNIE BJ Comment:Testing performed by : [facility], [address] [place] [phone] Chloride 108 97 - 110 mmol/L CERMINNIE BJ Comment:Testing performed by : [facility], [address] [place] [phone] CO2 24 22 - 32 mmol/L CERMINNIE BJ Comment:Testing performed by : [facility], [address] [place] [phone] Anion gap 6 2 - 15 mmol/L CERMINNIE BJ Comment:Testing performed by : [facility], [address] [place] [phone] BUN 23 8 - 25 mg/dL CERNER BJ Comment:Testing performed by : [facility], [address] [place] [phone] Creatinine 1.70(H) 0.60 - 1.10 mg/dL [facility] Comment:Testing performed by : [address] [phone] Glucose 107 70 - 199 mg/dL [facility]NIE [facility] Comment: Interpretive Data Fasting glucose [...] was last revised 2017. Testing performed by: [facility], [address] [place] [address] [place] [phone] Calcium 9.9 8.5 - 10.3 mg/dL [facility] Comment:Testing performed by : [facility], [address] [place] [phone] Blood 01/18/2022 2:04 PM CDT 01/18/2022 2:05 PM CDT Eren Cr MD LAB BLOOD ORDERABLES Final Re sult [facility] Department [place] [address] * (ABNORMAL) eGFR (01/16/2022 10:53 AM CDT) eGFR 29(L) 90 - 130 mL/min/1. 73 m2 [facility]ON [facility] Comment: Interpretive Data Reference Interval [...] was last reviewed 2021. Testing performed by: [facility], [address] [place] [phone] Blood 01/16/2022 10:5 3 AM CDT 01/16/2022 10:56 AM CDT us Eren Cr MD LAB BLOOD ORDERABLES Final Re sult [facility] Department [place] [address] * (ABNORMAL) Differential, auto (01/16/2022 10:53 AM CDT) Neutrophil abs 1.9 1.8 - 6.6 K/cumm [facility]ER [facility] Comment:Testing performed by : [facility], [address] [place] [phone] Lymphocyte abs 0.5(L) 1.2 - 3.3 K/cumm CERNER BJ Comment:Testing performed by : [facility], [address] [place] [phone] Monocyte abs 0.3 0.2 - 1.2 K/cumm CERNER BJ Comment:Testing performed by : [facility], [address] [place] [phone] Eosinophil abs 0.4 0.0 - 0.5 K/cumm CERNER BJ Comment:Testing performed by : [facility], [address] [place] [phone] Basophil abs 0.0 0.0 - 0.2 K/cumm CERNER BJ Comment:Testing performed by : [facility], [address] [place] [phone] Neutrophil pct 61.6 % CERNER BJ Comment: Interpretive Data Percent cell count reference ranges are not reported, since discordance with absolute values may lead to misinterpretation of CBC data. Current Interpretive Data was last revised on 2017. Testing performed by: [facility], [address] [place] [phone] Lymphocyte pct 16.2 % CERNER BJ Comment: Interpretive Data Percent cell count reference ranges are not reported, since discordance with absolute values may lead to misinterpretation of CBC data. Current Interpretive Data was last revised on 2017. Testing performed by: [facility], [address] [place] [phone] Monocyte pct 9.3 % [facility] Comment:Testing performed by : [facility], [address] [place] [phone] Eosinophil pct 12.0 % [facility] Comment:Testing performed by : [facility], [address] [place] [phone] Basophil pct 0.9 % [facility] Comment:Testing performed by : [facility], [address] [place] [phone] Blood 01/16/2022 10:5 3 AM CDT 01/16/2022 10:56 AM CDT Eren Cr MD LAB BLOOD ORDERABLES Final Re sult Performing Organization Address [facility] Co de Phone Number [facility] [place] [address] * Phosphorus (01/16/2022 10:53 AM CDT) Pathologist [facility] Phosphorus, pl 2.6 2.3 - 4.5 mg/dL [facility] Comment:Testing performed by : [facility], [address] [place] [phone] Blood 01/16/2022 10:5 3 AM CDT 01/16/2022 10:56 AM CDT Eren Cr MD LAB BLOOD ORDERABLES Final Re sult Performing Organization Address City/[facility] Co de Phone Number [place] [address] * (ABNORMAL) CBC with auto differential (01/16/2022 10:53 AM CDT) Pathologist [facility] WBC 3.1(L) 3.8 - 9.8 K/cumm [facility] Comment:Testing performed by : [facility], [address] [place] [address] Hgb 12.2 12.1 - 15.1 g/dL CERNER BJ Comment:Testing performed by : [facility], [address] [place] [address] Hct 35.3(L) 36.1 - 44.3 % CERNER BJ Comment:Testing performed by : [place] [address] Plt 107(L) 140 - 440 K/cumm CERNER BJ Comment:Testing performed by : [place] [address] MPV 9.0 6.8 - 10.4 fL CERNER BJ Comment:Testing performed by : [place] [address] RBC 3.46(L) 3.90 - 5.00 M/cumm CERNER BJ Comment:Testing performed by : [place] [address] MCV 102.0(H) 80.0 - 97.6 fL CERNER BJ Comment:Testing performed by : [place] [address] MCH 35.4(H) 26.7 - 33.7 pg CERNER BJ Comment:Testing performed by : [place] [address] MCHC 34.7 32.7 - 35.5 g/dL CERNER BJ Comment:Testing performed by : [place] [address] RDW CV 12.6 11.8 - 14.6 % CERNER BJ Comment:Testing performed by : [place] [address] NRBC abs 0.00 0.00 - 0.01 K/cumm CERNER BJ Comment:Testing performed by : [place] [address] Blood 01/16/2022 10:5 3 AM CDT 01/16/2022 10:56 AM CDT Eren Cr MD LAB BLOOD ORDERABLES Final Re sult Performing Organization Address City/[facility] Co de Phone Number [facility] [place] [address] * Magnesium (01/16/2022 10:53 AM CDT) Pathologist [facility] Magnesium 1.6 1.4 - 2.5 mg/dL JASON BLACK Comment:Testing performed by : [facility], [address] [place] [phone] Blood 01/16/2022 10:5 3 AM CDT 01/16/2022 10:56 AM CDT Eren Cr MD LAB BLOOD ORDERABLES Final Re sult Performing Organization Address [facility] de Phone Number [facility] [place] [address] * (ABNORMAL) Comprehensive metabolic panel (01/16/2022 10:53 AM CDT) [facility] Sodium 136 135 - 145 mmol/L [facility]ON [facility] Comment:Testing performed by : [facility], [address] [place] [phone] Potassium, pl 4.1 3.3 - 4.9 mmol/L JASON BLACK Comment:Testing performed by : [facility], [address] [place] [phone] Chloride 107 97 - 110 mmol/L JASON BLACK Comment:Testing performed by : [facility], [address] [place] [phone] CO2 23 22 - 32 mmol/L JASON BLACK Comment:Testing performed by : [facility], [address] [place] [phone] Anion gap 6 2 - 15 mmol/L JASON BLACK Comment:Testing performed by : [facility], [address] [place] [phone] BUN 29(H) 8 - 25 mg/dL JASON BLACK Comment:Testing performed by : [facility], [address] [place] [phone] Creatinine 1.84(H) 0.60 - 1.10 mg/dL CERNER BJ Comment:Testing performed by : [facility], [address] [place] [phone] Glucose 121 70 - 199 mg/dL CERNER BJ Comment: [...] was last revised 2017. Testing performed by: [facility], [address] [place], [place] [phone] Calcium 10.2 8.5 - 10.3 mg/dL CERNER BJ Comment:Testing performed by : [facility], [address] [place] [phone] Bilirubin, total 0.5 0.1 - 1.2 mg/dL CERNER BJ Comment:Testing performed by : [facility], [address] [place] [phone] Protein, pl 6.2(L) 6.5 - 8.5 g/dL CERNER BJ Comment:Testing performed by : [facility], [address] [place] [phone] Albumin 4.1 3.5 - 5.0 g/dL CERNER BJ Comment:Testing performed by : [address] [phone] Alk phos 119 40 - 130 Units/L CERNER BJ Comment:Testing performed by : [address] [phone] ALT 38 7 - 45 Units/L CERNER BJ Comment:Testing performed by : [address] [phone] AST 52(H) 10 - 45 Units/L [facility] Comment:Testing performed by : [facility], [address] [place] [phone] Blood 01/16/2022 10:5 3 AM CDT 01/16/2022 10:56 AM CDT us Eren Cr MD LAB BLOOD ORDERABLES Final Re sult Performing Organization Address City/State/[facility] Co de Phone Number [facility] [place] [address] documented in this encounter Visit Diagnoses Diagnosis Neuro-endocrine carcinoma (HCC) Other malignant neoplasm of unspecified site Neuroendocrine carcinoma (HCC) Other malignant neoplasm of unspecified site Malignant neoplasm metastatic to liver (HCC) Bone metastasis Secondary malignant neoplasm of bone and bone marrow Nausea and vomiting, unspecified vomiting type Dehydration documented in this encounter Care Teams Contract Processor Relationship Specialty Start Date End Date Julio César Briseno MD PCP - General 10/01/16 Eren Cr MD Referring Physician Medical Oncology 11/25/18 Yohana Bowen MD Radiation Oncologist Radiation Oncology 11/25/18 documented as of this encounter
--- OUTSIDE RECORDS SUMMARY | 2024-06-25 22:21 | XMS_ITS | Encounter Summary ---
Author Organization [facility] Address [address] [place] [address] Phone Care Team Providers Care Fly Winder Name Role Phone Julio César Briseno MD Primary Care Provider [phone] Eren Cr MD Unavailable [phone] Yohana Bowen MD Unavailable Encounter Details Date Type Department Care Team (Late st Contact Info) Description 01/18/2022 Orders Only [facility] Oncology [address] [facility] Advanced Medicine 7th [place] [address] [place] [address] Eren Cr MD [address] [facility] [address] [place] [address] 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) (Primary Dx); Neuro-endocrine carcinoma (CMS/HCC) (HCC); Dehydration Social History [...] on file 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 Gender Identity Not on file Sexual Orientation Straight 02/19/2021 9: 29 AM CDT Occupation Industry Job Start Date Job End Date retired Not on file Not on file Not on file documented as of this encounter Plan of Treatment Not on file documented as of this encounter Results * (ABNORMAL) Basic metabolic panel (01/18/2022 2:04 PM CDT) Sodium 138 135 - 145 mmol/L CERNER BJ Comment:Testing performed by : [facility], [address] [place] [phone] Potassium, pl 4.0 3.3 - 4.9 mmol/L CERNER BJ Comment:Testing performed by : [facility], [address] [place] [phone] Chloride 108 97 - 110 mmol/L CERNER BJ Comment:Testing performed by : [facility], [address] [place] [phone] CO2 24 22 - 32 mmol/L CERNER BJ Comment:Testing performed by : [address] [phone] Anion gap 6 2 - 15 mmol/L CERNER BJ Comment:Testing performed by : [address] [phone] BUN 23 8 - 25 mg/dL CERNER BJ Comment:Testing performed by : [facility], [address] [place] [phone] Creatinine 1.70(H) 0.60 - 1.10 mg/dL CERNER BJ Comment:Testing performed by : [address] [phone] Glucose 107 70 - 199 mg/dL CERNER BJ Comment: [...] was last revised 2017. Testing performed by: [facility], [address] [facility] [phone] Calcium 9.9 8.5 - 10.3 mg/dL [facility] Comment:Testing performed by : [facility], [address] [facility] [phone] Blood 01/18/2022 2:04 PM CDT 01/18/2022 2:05 PM CDT us Eren Cr MD LAB BLOOD ORDERABLES Final Re sult [facility] Department of Laboratories [place], [place] [id number] documented in this encounter Visit Diagnoses Diagnosis Malignant neoplasm metastatic to liver (HCC)- Primary Neuro-endocrine carcinoma (HCC) Other malignant neoplasm of unspecified site Dehydration documented in this encounter Orders Appointment Requests Count Last Ordered Date Fi rst Ordered Date ONCBCN INFUSION APPT REQUEST 1 01/18/2022 ONCBCN LAB APPOINTMENT 1 01/18/2022 documented in this encounter Care Teams Fly Winder Relationship Specialty Start Date End Date Julio César Briseno MD PCP - General 10/01/16 Eren Cr MD Referring Physician Medical Oncology 11/25/18 Yohana Bowen MD Radiation Oncologist Radiation Oncology 11/25/18 documented as of this encounter
--- OUTSIDE RECORDS SUMMARY | 2024-06-25 22:21 | XMS_ITS | Encounter Summary ---
Author Organization [facility] Address [address] [place] [address] Phone Care Team Providers Care Commodity Lead Name Role Phone Julio César Briseno MD Primary Care Provider [phone] Eren Cr MD Unavailable Yohana Bowen MD Unavailable Encounter Details Date Type Department Care Team (Latest Contact Info) Description 01/18/2022 2:00 PM CDT Clinical Support [facility] Oncology [address] [facility] 7th [place] [address] [place] [address] 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) (Primary Dx); Neuro-endocrine carcinoma (CMS/HCC) (HCC); Dehydration; Hypophosphatemia Social History [...] on file 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 Gender Identity Not on file [...] as needed, line care, Starting on Lydia 01/18/22 at 1409, Flush with Heparin immediately prior to de-accessing port.Indications:Hypophosphatem ia Given 01/18/2022 2:00 PM CDT 500 Units sodium chloride 0.9% flush 10 mL 10 mL, intravenous, As needed, line care, Starting on Lydia 01/18/22 at 1409, Flush pre and post IV catheter use.Indications:Hypophosphatemi a Given 01/18/2022 1:59 PM CDT 10 mL Given 01/18/2022 1:57 PM CDT 10 mL documented in this encounter Orders Appointment Requests Count Last Ordered Date Fi rst Ordered Date ONCBCN LAB APPOINTMENT 1 01/18/2022 documented in this encounter Care Teams Commodity Lead Relationship Specialty Start Date End Date Julio César Briseno MD PCP - General 10/01/16 Eren Cr MD Referring Physician Medical Oncology 11/25/18 Yohana Bowen MD Radiation Oncologist Radiation Oncology 11/25/18 documented as of this encounter
--- OUTSIDE RECORDS SUMMARY | 2024-06-25 22:21 | XMS_ITS | Encounter Summary ---
Author Organization [facility] Address [address] [place] [address] Phone Care Team Providers Care Labor Economist Name Role Phone Julio César Briseno MD Primary Care Provider [phone] Eren Cr MD Unavailable [phone] Yohana Bowen MD Unavailable Reason for Visit * Episode Based Medications (Routine) - Closed Specialty Diagnoses / Procedures Referred By Evelyne bowman Referred To Contact Diagnoses Neuro-endocrine carcinoma (HCC) Procedures study [id number] phase III cabozantinib Eren Cr MD [address] [facility] [address] [place] [address] Phone: tel: fax: [facility] [address] [facility] 7th [place] [address] Phone: tel: Referral ID Status Reason Start Date Expiration Date Visits Re quested Visits Authorized [id number] Closed 06/21/2021 06/26/2024 1 99 Encounter Details Date Type Department Care Team (Latest Contact Info) Description 01/29/2022 2:30 PM CDT Research Med Pick-Up/CTRU Brand Communications Manager [facility] Oncology [address] [place] [address] 7th [place] [address] Neuro-endocrine carcinoma (CMS/HCC) (HCC) (Primary Dx) Social [...] on file 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
--- OUTSIDE RECORDS SUMMARY | 2024-06-25 22:21 | XMS_ITS | Encounter Summary ---
Author Organization [facility] Address [address] [place] [address] Phone Care Team Providers Care Social Media Marketer Name Role Phone Julio César Briseno MD Primary Care Provider Eren Cr MD Unavailable [phone] Yohana Bowen MD Unavailable Encounter Details Date Type Department Care Team (Late st Contact Info) Description 01/25/2022 Orders Only [facility] Oncology [address] [facility] Advanced Medicine 7th [place] [address] [place] [address] Eren Cr MD [address] [facility] [address] [place] [address] Neuro-endocrine carcinoma (CMS/HCC) (HCC) (Primary Dx) Social [...] 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
--- OUTSIDE RECORDS SUMMARY | 2024-06-25 22:21 | XMS_ITS | Encounter Summary ---
Author Organization [facility] Address [address] [place] [address] Phone Care Team Providers Care Earth Science Professor Name Role Phone Julio César Briseno MD Primary Care Provider Eren Cr MD Unavailable [phone] Yohana Bowen MD Unavailable Encounter Details Date Type Department Care Team (Late st Contact Info) Description 01/29/2022 Orders Only [facility] Oncology [address] [facility] 7th [place] [address] [place] [address] Eren Cr MD [address] [facility] [address] [place] [address] Social History Tobacco Use Types Packs/Day Years [...] on file 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
--- OUTSIDE RECORDS SUMMARY | 2024-06-25 22:21 | XMS_ITS | Encounter Summary ---
Author Organization [facility] Healthcare Address [address] [place] [address] Care Team Providers Care Asset Availability Leader Name Role Phone Julio César Briseno MD Primary Care Provider Eren Cr MD Unavailable [phone] Yohana Bowen MD Unavailable Encounter Details Date Type Department Care Team (Latest Contact Info) Description 01/16/2022 11:12 AM CDT - 01/16/2022 5:25 PM CDT Hospital Encounter [facility] [address] [place] [id number] Hypophosphatemia (Primary Dx); Neuroendocrine carcinoma (CMS/HCC) (HCC) Discharge [...] file 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 Gender Identity Not on file Sexual Orientation Straight 02/19/2021 9: 29 AM CDT Occupation Industry Job Start Date Job End Date retired Not on file Not on file Not on file documented as of this encounter Last Filed Vital Signs Vital Sign Reading Time Taken Comments Blood Pressure 144/56 01/16/2022 1:10 PM CDT Pulse 53 01/16/2022 1:10 PM CDT Temperature 36.8 ??C (98.3 ??F) 01/16/2022 1:10 PM CD T Respiratory Rate 18 01/16/2022 1:10 PM CDT Oxygen Saturation 99% 01/16/2022 1:10 PM CDT Inhaled Oxygen Concentration - - [...] capsuleIndications :supplement Take 1 tablet by mouth vp clinical research before breakfast 07/04/2016 4 cholecalciferol (VITAMIN D-3) 2,000 unit capsule Take 1 capsule (2,000 Units total) by mouth daily 30 capsule 2 04/25/2019 3 cholestyramine (QUESTRAN) 4 gram packet Take 1 packet by mouth 3 (three) times a day with meals 270 packet 3 09/04/2019 2 clotrimazole-betam ethasone (LOTRISONE) cream Apply 1 Application topically daily as needed (rash) 4 coenzyme [id number] 100-5 mg-unit capsuleIndications :supplement Take 1 tablet by mouth vp clinical research before breakfast 4 diphenoxylate-atro pine (LOMOTIL) 2.5-0.025 [...] as needed for rhinitis or allergies 4 [facility] cabozantinib/place mariela (2018-02-122/A0216 02) 20 mg tabletIndications: cancer study Take 1 tablet (20 mg total) by mouth nightly Take on an empty stomach (no food for 2 hours before and 1 hour after each dose).?? Avoid Jas's Wort, grapefruit products and [place] oranges while on treatment. placed on hold 09/26/22 for covid 01/29/2022 4 levothyroxine (Synthroid) 75 mcg tabletIndications: Hypothyroidism due to medication Take 1 tablet (75 mcg total) by mouth vp clinical research before breakfast 30 tablet 3 11/16/2021 2 [...] Nursing Notes * Hola Heredia RN - 01/16/2022 11:15 AM CDT Pt arrived to [facility] for IVF. PAC accessed prior to [facility] appt. 1L NS infused and tolerated well. PAC instilled w/ heparin and de-accessed. AVS declined d/t MyChart use. Pt discharged by accompanied byspouse. documented in this encounter Miscellaneous Notes * Incidental Note - Sharona Gomez NP - 01/16/2022 11:15 AM CDT Owl alert: patient with heart rate of 127, in clinic for hydration 1 liter of NS over 2 hours. White count slightly decreased at 3.1, but has been in 3's since November 2021. Patient denies fever chills or any other signs of infection. Heart rate checked after infusion; heart rate 53, regular with bloodpressure of 144/56. No difficulties at this time. documented in this encounter [...] needed, line care, Starting on Sat01/16/22 at 1114, Flush with Heparin immediately prior to de-accessing port.Indications:Hypophosph atemia Given 01/16/2022 1:25 PM CDT 500 Units sodium chloride 0.9% bolus 1,000 mL 1,000 mL, intravenous, at 500 mL/hr, Administer over 2 Hours, Once, On Sat01/16/22 at 1150, For 1 doseIndications:Neuroendocr ine carcinoma (HCC) New Bag 01/16/2022 11:23 AM CDT 1,000 mL 500 mL/hr documented in this encounter Care Teams Asset Availability Leader Relationship Specialty Start Date End Date Julio César Briseno MD PCP - General 10/01/16 Eren Cr MD Referring Physician Medical Oncology 11/25/18 Yohana Bowen MD Radiation Oncologist Radiation Oncology 11/25/18 documented as of this encounter
--- OUTSIDE RECORDS SUMMARY | 2024-06-25 22:21 | XMS_ITS | Encounter Summary ---
Author Organization [facility] Address [address] [place] [address] Phone Care Team Providers Care Flyer Maker Name Role Phone Julio César Briseno MD Primary Care Provider [phone] Eren Cr MD Unavailable [phone] Yohana Bowen MD Unavailable Reason for Visit * Episode Based Medications (Routine) - Closed Specialty Diagnoses / Procedures Referred By Evelyne bowman Referred To Contact Diagnoses Neuro-endocrine carcinoma (HCC) Procedures study [id number] phase III cabozantinib Eren Cr MD [address] [facility] [address] [place] [address] Phone: tel: fax: [facility] [address] [facility] 7th [place] [address] Phone: tel: Referral ID Status Reason Start Date Expiration Date Visits Re quested Visits Authorized [id number] Closed 06/21/2021 06/26/2024 1 99 Encounter Details Date Type Department Care Team (Latest Contact Info) Description 12/25/2021 8:45 AM CDT Clinical Support [facility] 7th [place] [address] [place] [address] Neuro-endocrine carcinoma (CMS/HCC) (HCC) Social History Tobacco [...] on file 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
--- OUTSIDE RECORDS SUMMARY | 2024-06-25 22:21 | XMS_ITS | Encounter Summary ---
Author Organization [facility] Address [address] [place] [address] Phone Care Team Providers Care Nurse Prn Name Role Phone Julio César Briseno MD Primary Care Provider Eren Cr MD Unavailable [phone] Yohana Bowen MD Unavailable Encounter Details Date Type Department Care Team (Late st Contact Info) Description 01/15/2022 Orders Only [facility] Oncology [address] [facility] 7th [place] [address] [place] [address] Eren Cr MD [address] [facility] [address] [place] [address] Social History Tobacco Use Types Packs/Day Years [...] on file 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
--- OUTSIDE RECORDS SUMMARY | 2024-06-25 22:22 | XMS_ITS | Encounter Summary ---
Author Organization [facility] Address [address] [place] [address] Phone Care Team Providers Care Can Closing Machine Operator Name Role Phone Julio César Briseno MD Primary Care Provider [phone] Eren Cr MD Unavailable [phone] Yohana Bowen MD Unavailable Reason for Visit * Episode Based Medications (Routine) - Closed Specialty Diagnoses / Procedures Referred By Evelyne bowman Referred To Contact Diagnoses Neuro-endocrine carcinoma (HCC) Procedures study [id number] phase III cabozantinib Eren Cr MD [address] [facility] [address] [place] [address] Phone: tel: fax: [facility] [address] [facility] 7th [place] [address] Phone: tel: Referral ID Status Reason Start Date Expiration Date Visits Re quested Visits Authorized [id number] Closed 06/21/2021 06/26/2024 1 99 Encounter Details Date Type Department Care Team (Late st Contact Info) Description 11/27/2021 1:30 PM CDT Office Visit [facility] [address] [facility] 7th [place] [address] [place] [address] Eren Cr MD [address] [facility] [address] [place] [address] Bone metastasis (CMS/HCC) (HCC) (Primary Dx); Malignant neoplasm metastatic [...] on file 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 Gender Identity Not on file Sexual Orientation Straight 02/19/2021 9: 29 AM CDT Occupation Industry Job Start Date Job End Date retired Not on file Not on file Not on file documented as of this encounter Last Filed Vital Signs Vital Sign Reading Time Taken Comments Blood Pressure 137/76 11/27/2021 1:29 PM CDT Pulse 75 11/27/2021 1:29 PM CDT Temperature 35.8 ??C (96.5 ??F) 11/27/2021 1:29 PM CD T Respiratory Rate 16 11/27/2021 1:29 PM CDT Oxygen Saturation 98% 11/27/2021 1:29 PM CDT Inhaled Oxygen Concentration - - Weight 79.2 kg (174 lb 9.6 oz) 11/27/2021 1:29 P M CDT Height - - Body Mass Index 31.93 10/19/2021 4:00 PM CDT documented in this encounter Progress Notes * Idania Diaz PA - 11/27/2021 1:30 PM CDT MEDICAL ONCOLOGY OUTPATIENT ROV NOTE DATE OF VISIT: 11/27/2021 DIAGNOSIS: well differentiated neuroendocrine tumor of ileum [...] she also underwent right colectomy in [facility] OR by Dr. Greyson Reeves. Biopsy [...] 60 mg once daily. Today is cycle 5 of Cabozantinib/placebo (CABINET study). Since she was last seen the hand foot syndrome has improved. She no longer has tenderness or pain in her feet and no difficulty walking. Her diarrhea has also resolved after taking Lomotil. She is eating well with a healthy appetite. She has normal urinary function. She denies abdominal pain, nausea, vomiting, diarrhea, constipation, fevers, or chills. REVIEW OF SYSTEMS: A complete review of systems was performed and positive and pertinent negative responses are documented in the history of present illness All other systems were negative. PHYSICAL EXAM: ECOG PS: 1 VITALS: BP 137/76 (BP Location: Right arm) Pulse 75 Temp (!) 35.8 ??C (96.5 ??F) (Transdermal) Resp 16 Wt 79.2 kg (174 lb 9.6 oz) SpO2 98% BMI 31.93 kg/m?? GEN: Calm, conversant, well-appearing female in [...] balls of feet. Mild erythema. 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 Labs - Hematology Latest Ref Range 09/18/21 10/16/21 11/13/21 11/27/21 WBC 3.8 - 9.8 K/cumm 3.0 (A) 2.9 (A) 4.2 3.4 (A) Total Hb, POC 12.1 - 15.1 g/dL 13.1 10.1 (A) 11.1 (A) 10.2 (A) Hct 36.1 - 44.3 % 36.9 28.8 (A) 32.0 (A) 28.5 (A) Plt 140 - 440 K/cumm 71 (A) 78 (A) 110 (A) 97 (A) Neutrophil abs 1.8 - 6.6 K/cumm 1.8 1.8 2.8 2.1 Lymphocytes, abs 1.2 - 3.3 K/cumm 0.7 (A) 0.4 (A) 0.5 (A) 0.4 (A) (A) Abnormal value Comments are available for some flowsheets but are not being displayed. Chem/LFT Lab History Some values may be hidden. Unless noted otherwise, only the newest values recorded on each date aredisplayed. Labs-Chem/LFT Latest Ref Range 10/13/21 10/16/21 11/13/21 11/27/21 Sodium 135 - 145 mmol/L 142 142 141 Creatinine 0.60 - 1.10 mg/dL 1.07 1.25 (A) 0.92 Bilirubin, total 0.1 - 1.2 mg/dL 0.8 0.7 0.6 AST 10 - 45 Units/L 35 38 23 ALT 7 - 45 Units/L 25 25 14 CrCl- Actual Body Weight (Cockcroft-Gault) 68.1 58.1 48.3 68.1 (A) Abnormal value Comments are available for some flowsheets but are not being displayed. Tumor Marker History Some values may be hidden. Unless noted otherwise, only the newest values recorded on each date aredisplayed. Tumor Markers Latest Ref Range 08/21/21 09/18/21 10/16/21 11/13/21 Chromogranin A <93 ng/mL 877 (A) 912 (A) 812 (A) 653 (A) (A) Abnormal value Comments are available [...] they are adequate to prceed with cycle 5 of CABINET trial: Cabozantinib/placebo 2. Thrombocytopenia: - Grade 1 platelet count 3. Bone metastases: - Xgeva monthly, next dose on 12/11 - Cr 0.92, Calcium 10.3, Phos 72 4. Diarrhea - Stable ostomy output - Continue lomotil 5. Hypomagnesemia - Magnesium 1.1 after cycle 4, grade 2 per CTCAE 5.0 - Will give 2 g of Magnesium today - Holding off on oral replacement due to risk for worsening diarrhea 6. TSH elevated - 16.00 - reflex to T4 0.70 - Start synthroid 75 mcg daily 7. Hand Foot Syndrome - Grade 2 (causing pain, interfering with ambulation). Per study protocol (section 8.2.13) will hold treatment for two weeks. - Today is grade 1, will resume at reduced dose 40 mg daily. - Recommended use of a thick moisturizer with 20% urea cream. 6. Mouth Sores - Grade 1 - Will start salt water mouth rinse. Will return on 12/11 for Xgeva and Octreotide injections. Will plan for next injections in 6 weeks for 01/22 to get on schedule with [facility] treatments. ?? All of??her and her 's??questions were answered to their satisfaction and they verbalized understanding. Idania Diaz PA-C [facility] Division of Medical Oncology In collaboration with Dr. Eren Cr documented in this encounter Plan of Treatment Not on file documented as of this encounter Results * Phosphorus (12/25/2021 9:25 AM CDT) [facility] Phosphorus, pl 2.3 2.3 - 4.5 mg/dL [facility] Comment:Testing performed by : [facility], [address] [place] [phone] Blood 12/25/2021 9:25 AM CDT 12/25/2021 9:28 AM CDT Eren Cr MD LAB BLOOD ORDERABLES Final Re sult Performing Organization Address [facility] Co de Phone Number [facility] [place] [address] * Magnesium (12/25/2021 9:25 AM CDT) [facility] Magnesium 1.5 1.4 - 2.5 mg/dL [facility] Comment:Testing performed by : [facility], [address] [place] [phone] Blood 12/25/2021 9:25 AM CDT 12/25/2021 9:28 AM CDT Eren Cr MD LAB BLOOD ORDERABLES Final Re sult Performing Organization Address [facility]/ZIP Co de Phone Number [facility] [place] [address] * (ABNORMAL) Comprehensive metabolic panel (12/25/2021 9:25 AM CDT) [facility] Sodium 139 135 - 145 mmol/L [facility] Comment:Testing performed by : [facility], [address] [place] [phone] Potassium, pl 4.0 3.3 - 4.9 mmol/L [facility] Comment:Testing performed by : [facility], [address] [place] [phone] Chloride 108 97 - 110 mmol/L [facility] Comment:Testing performed by : [facility], [address] [place] [phone] CO2 25 22 - 32 mmol/L [facility] Comment:Testing performed by : [facility], [address] [place] [phone] Anion gap 6 2 - 15 mmol/L [facility] Comment:Testing performed by : [facility], [address] [place] [phone] BUN 18 8 - 25 mg/dL [facility] Comment:Testing performed by : [facility], [address] [place] [phone] Creatinine 1.27(H) 0.60 - 1.10 mg/dL [facility] Comment:Testing performed by : [facility], [address] [place] [phone] Glucose 111 70 - 199 mg/dL [facility] Comment: [...] was last revised 2017. Testing performed by: [facility], [address] [place] [phone] Calcium 9.9 8.5 - 10.3 mg/dL [facility] Comment:Testing performed by : [facility], [address] [place] [phone] Bilirubin, total 0.5 0.1 - 1.2 mg/dL [facility] Comment:Testing performed by : [facility], [address] [place] [phone] Protein, pl 6.3(L) 6.5 - 8.5 g/dL [facility] Comment:Testing performed by : [facility], [address] [place] [phone] Albumin 4.1 3.5 - 5.0 g/dL [facility] Comment:Testing performed by : [facility], [address] [place] [phone] Alk phos 84 40 - 130 Units/L [facility] Comment:Testing performed by : [facility], [address] [place] [phone] ALT 22 7 - 45 Units/L [facility] Comment:Testing performed by : [facility], [address] [place], [place] [phone] AST 32 10 - 45 Units/L [facility] Comment:Testing performed by : [facility], [address] [place] [phone] Blood 12/25/2021 9:25 AM CDT 12/25/2021 9:28 AM CDT Eren Cr MD LAB BLOOD ORDERABLES Final Re sult [facility] Department [place] [address] * (ABNORMAL) CBC with auto differential (12/25/2021 9:25 AM CDT) WBC 3.4(L) 3.8 - 9.8 K/cumm [facility] Comment:Testing performed by : [facility], [address] [place] [phone] Hgb 12.0(L) 12.1 - 15.1 g/dL [facility] Comment:Testing performed by : [facility], [address] [place] [phone] Hct 34.3(L) 36.1 - 44.3 % [facility] Comment:Testing performed by : [facility], [address] [place] [phone] Plt 99(L) 140 - 440 K/cumm [facility] Comment:Testing performed by : [facility], [address] [place] [phone] MPV 9.1 6.8 - 10.4 fL [facility] Comment:Testing performed by : [facility], [address] [place] [phone] RBC 3.31(L) 3.90 - 5.00 M/cumm [facility] Comment:Testing performed by : [facility], [address] [place] [phone] MCV 103.5(H) 80.0 - 97.6 fL [facility] Comment:Testing performed by : [facility], [address] [place] [phone] MCH 36.2(H) 26.7 - 33.7 pg [facility] Comment:Testing performed by : [facility], [address] [place] [phone] MCHC 35.0 32.7 - 35.5 g/dL [facility] Comment:Testing performed by : [facility], [address] [place] [phone] RDW CV 13.3 11.8 - 14.6 % [facility] Comment:Testing performed by : [facility], [address] [place] [phone] NRBC abs 0.00 0.00 - 0.01 K/cumm [facility] Comment:Testing performed by : [facility], [address] [place] [phone] Blood 12/25/2021 9:25 AM CDT 12/25/2021 9:28 AM CDT Eren Cr MD LAB BLOOD ORDERABLES Final Re sult [facility] Department [place] [address] documented in this encounter Visit Diagnoses Diagnosis Bone metastasis- Primary Secondary malignant 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) Neuro-endocrine carcinoma (HCC) Other malignant neoplasm of unspecified site documented in this encounter Orders Appointment Requests Count Last Ordered Date Fi rst Ordered Date ONCBCN CLINIC APPOINTMENT REQUEST 2 022 11/27/2021 ONCBCN LAB APPOINTMENT 1 12/25/2021 ONCBCN TAKE HOME STUDY DRUG APPT 1 12/26/19 22 documented in this encounter Care Teams Can Closing Machine Operator Relationship Specialty Start Date End Date Julio César Briseno MD PCP - General 10/01/16 Eren Cr MD Referring Physician Medical Oncology 11/25/18 Yohana Bowen MD Radiation Oncologist Radiation Oncology 11/25/18 documented as of this encounter
--- OUTSIDE RECORDS SUMMARY | 2024-06-25 22:22 | XMS_ITS | Encounter Summary ---
Author Organization [facility] Address [address] [place] [address] Phone Care Team Providers Care Digital Imaging Technician Name Role Phone Julio César Briseno MD Primary Care Provider Eren Cr MD Unavailable Yohana Bowen MD Unavailable Sabrina Willard NP Unavailable [phone] Encounter Details Date Type Department Care Team (Late st Contact Info) Description 11/22/2021 Orders Only [facility] Oncology [address] [facility] 7th [place] [address] [place] [phone] Eren Cr MD [address] [facility] [address] [place] [address] Social History Tobacco Use Types Packs/Day Years [...] file 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 Gender Identity Not on file Sexual Orientation Straight 02/19/2021 9: 29 AM CDT Occupation Industry Job Start Date Job End Date retired Not on file Not on file Not on file documented as of this encounter Plan of Treatment Not on file documented as of this encounter Visit Diagnoses Not on filedocumented in this encounter Care Teams Digital Imaging Technician Relationship Specialty Start Date End Date Julio César Briseno MD PCP - General 10/01/16 Eren Cr MD Referring Physician Medical Oncology 11/25/18 Yohana Bowen MD Radiation Oncologist Radiation Oncology 11/25/18 Sabrina Willard NP [address] [place] [address] Nurse Practitioner Medical Oncology 08/17/20 11/26/21 documented as of this encounter
--- OUTSIDE RECORDS SUMMARY | 2024-06-25 22:22 | XMS_ITS | Encounter Summary ---
Author Organization [facility] Address [address] [place] [address] Phone Care Team Providers Care Solid Waste Collector Name Role Phone Julio César Briseno MD Primary Care Provider [phone] Eren Cr MD Unavailable [phone] Yohana Bowen MD Unavailable Reason for Visit * Episode Based Medications (Routine) - Authorized Specialty Diagnoses / Procedures Referred By Evelyne t Referred To Contact Oncology Diagnoses Neuroendocrine carcinoma (HCC) Malignant neoplasm metastatic to liver (HCC) Procedures [place] OCTREOTIDE INJECTION, DEPOT Octreotide 28 Day Cycles - Carcinoid Eren Cr MD [address] [address] [place] [address] Phone: tel: fax: [address] [address] Phone: tel: fax: Referral ID Status Reason Start Date Expiration Date V isits Requested Visits Authorized [id number] Authorized 11/28/2017 02/05/2025 1 150 Encounter Details Date Type Department Care Team (Latest Contact Info) Description 12/11/2021 9:45 AM CDT Clinical Support [facility] Oncology [address] [place] [address] 7th [place] [address] [place] [address] Neuroendocrine carcinoma (CMS/HCC) (HCC) (Primary Dx); 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); Hypophosphatemia Social History Tobacco Use [...] file 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 [employer] Gender Identity Not on file Sexual Orientation 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) Hypophosphatemia Disorders of phosphorus metabolism documented in this encounter Administered Medications Inactive Administered Medications - up to 3 most recent administrations Medication Order MAR Action Action Date Dose Rate Site heparin 100 unit/mL injection 500 Units 500 Units (5 mL), IV flush, Once as needed, line care, Starting on Sat12/11/21 at 1128, Flush with Heparin immediately prior to de-accessing port.Indications:Hypophosphate jaycee Given 12/11/2021 11:23 AM CDT 500 Units sodium chloride 0.9% flush 10 mL 10 mL, intravenous, As needed, line care, Starting on Sat12/11/21 at 1128, Flush pre and post IV catheter use.Indications:Hypophosphatem ia Given 12/11/2021 11:22 AM CDT 10 mL Given 12/11/2021 11:20 AM CDT 10 mL documented in this encounter Orders Appointment Requests Count Last Ordered Date Fi rst Ordered Date ONCBCN LAB APPOINTMENT 1 12/11/2021 documented in this encounter Care Teams Solid Waste Collector Relationship Specialty Start Date End Date Julio César Briseno MD PCP - General 10/01/16 Eren Cr MD Referring Physician Medical Oncology 11/25/18 Yohana Bowen MD Radiation Oncologist Radiation Oncology 11/25/18 documented as of this encounter
--- OUTSIDE RECORDS SUMMARY | 2024-06-25 22:22 | XMS_ITS | Encounter Summary ---
Author Organization [facility] Healthcare Address [address] [place] [address] Care Team Providers Care [facility] Office Supervisor Name Role Phone Julio César Briseno MD Primary Care Provider [phone] Eren Cr MD Unavailable Yohana Bowen MD Unavailable Sabrina Willard NP Unavailable [phone] Reason for Visit * Reason Comments OP Infusion 4g of Mag * Episode Based Medications (Routine) - Authorized Specialty Diagnoses / Procedures Referred By Contac t Referred To Contact Diagnoses Hypomagnesemia Eren Cr MD [address] [facility] [address] [place] [address] Phone: tel: fax: [facility] [address] [facility] 7th [place] [address] Phone: tel: Referral ID Status Reason Start Date Expiration Date V isits Requested Visits Authorized [id number] Authorized 11/13/2021 04/01/2025 1 30 Encounter Details Date Type Department Care Team (Latest Contact Info) Description 11/13/2021 5:08 PM CDT - 11/13/2021 11:59 PM CDT Hospital Encounter [facility] [address] [place] [id number] Hypomagnesemia (Primary Dx); Hypophosphatemia Discharge Disposition: Discharge to home or [...] on file Legal Sex Female 2:41 PM 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 Gender Identity Not on file Sexual Orientation Straight 02/19/2021 9: 29 AM CDT Occupation Industry Job Start Date Job End Date retired Not on file Not on file Not on file documented as of this encounter Last Filed Vital Signs Vital Sign Reading Time Taken Comments Blood Pressure 153/71 11/13/2021 7:21 PM CDT Pulse 59 11/13/2021 7:21 PM CDT Temperature 36.5 ??C (97.7 ??F) 11/13/2021 7:21 PM CD T Respiratory Rate 16 11/13/2021 7:21 PM CDT Oxygen Saturation 98% 11/13/2021 7:21 PM CDT Inhaled Oxygen Concentration - - Weight - - Height - - Body Mass Index - - documented in this encounter Discharge Instructions * Patient Instructions* Denisha Raymundo RN - 11/13/2021 5:30 PM CDT .After 4:30 PM during the week, on weekends and holidays, call [phone] and ask to have the Inside Account Representative Physician paged for you. Saturday through Saturday, 8 AM to 4:30 PM, call [phone] [facility] Oncology Physician at [facility] and ask for a member of your doctor's team. Special Instructions: ?? Drink at least 64 ounces of decaffeinated liquid every day. ?? Take your temperature 2 times a day. ?? Bring your bottles of all medicines you are taking with you or a complete medication list to allappointments. Additional Information: ?? Diet: As tolerated. Avoid raw or undercooked meats. ?? Activity: As tolerated. ?? Care Instructions: Take all medications as prescribed. ?? Special Instructions: ?? Drink at least 64 ounces of decaffeinated liquid every day. ?? Take your temperature 2 times a day. Bring your bottles of all medicines you are taking or a complete medication list with you to all appointments. CALL YOUR DOCTOR RIGHT AWAY IF YOU HAVE: ?? A temperature of 100.5 F or 38 C ?? Shaking chills ?? DO NOT take Tylenol, aspirin, or ibuprofen unless your doctor tells you to ?? A hard time breathing - Shortness of breath at rest or after minimal exertion ?? Vomiting that is not controlled by your anti-nausea medicine ?? Nausea that prevents you from eating, drinking or taking medicine, and is not being controlled by your anti-nausea medicine ?? Unusual or heavy bleeding ?? Blood in urine, black or bloody stool, or nosebleeds ?? Feeling confused or very sleepy - Weakness or dizziness ?? Pain of increased intensity or development of new pain, including strong headaches CALL WITHIN 24 HOURS FOR: ?? Pain or skin changes at the drug injection site ?? Diarrhea for more than 2 days that is not controlled by anti diarrhea medicine ?? Watery diarrhea, stomach cramps, or nausea that doesn't go away ?? No bowel movement for 2 or more days ?? Frequent and/or painful urinating ?? Persistent cough or a cough producing yellow or green mucous ?? Mouth sores ?? Skin rash ?? If you are unable to get your medicines at the pharmacy ?? Avoid taking any non-prescription medicine without your [...] capsuleIndications :supplement Take 1 tablet by mouth tar leveler before breakfast 07/04/2016 4 cholecalciferol (VITAMIN D-3) 2,000 unit capsule Take 1 capsule (2,000 Units total) by mouth daily 30 capsule 2 04/25/2019 3 cholestyramine (QUESTRAN) 4 gram packet Take 1 packet by mouth 3 (three) times a day with meals 270 packet 3 09/04/2019 2 clotrimazole-betam ethasone (LOTRISONE) cream Apply 1 Application topically daily as needed (rash) 4 coenzyme [id number] 100-5 mg-unit capsuleIndications :supplement Take 1 tablet by mouth tar leveler before breakfast 4 diphenoxylate-atro pine (LOMOTIL) 2.5-0.025 [...] as needed for rhinitis or allergies 4 [facility] cabozantinib/place mariela (2018-02-122/A0216 02) 20 mg tabletIndications: cancer study Take 1 tablet (20 mg total) by mouth nightly Take on an empty stomach (no food for 2 hours before and 1 hour after each dose).?? Avoid Jas's Wort, grapefruit products and [place] oranges while on treatment. placed on hold 09/26/22 for covid 01/29/2022 4 LORazepam (ATIVAN) 0.5 mg tabletIndications: MRI scan [...] documented in this encounter Nursing Notes * Denisha Raymundo RN - 11/13/2021 5:30 PM CDT Pt arrived to [facility] for 4g of Mag, accompanied by family. Reviewed todays plan of care with the patient and is agreeable with this plan. Pt is sitting in the chair / bed in comfortable position. * Denisha Raymundo RN - 11/13/2021 5:30 PM CDT Patient received 4g of Mag. Patient tolerated treatment well. Discharge instruction was given to patient . Discharged in stable condition. documented in this encounter Plan of Treatment Not on file documented as of this encounter Visit Diagnoses Diagnosis Hypomagnesemia- Primary Disorders of magnesium metabolism Hypophosphatemia Disorders of phosphorus metabolism documented in this encounter Administered Medications Inactive Administered Medications - up to 3 most recent administrations Medication Order MAR Action Action Date Dose Rate Site heparin 100 unit/mL injection 500 Units 500 Units (5 mL), IV flush, Once as needed, line care, Starting on Sat11/13/21 at 1724, Flush when all medication administered and labs completed for the day.Indications:Hypophosphat emia Given 11/13/2021 6:00 PM CDT 500 Units sodium chloride 0.9% 500 mL with magnesium sulfate 4 g infusion 333 mL/hr, intravenous, Once, On Sat11/13/21 at 1755, For 1 doseIndications:Hypomagnesem ia New Bag 11/13/2021 6:00 PM CDT 333 mL/hr 333 mL/hr documented in this encounter Orders Medications Ordered That Brett ht Not Have Been Administered Count Last Ordered Date First Ordered Date heparin 10 unit/mL flush 30 Units 1 022 sodium chloride 0.9% flush 10 mL 1 11/14/19 22 Nursing Count Last Ordered Date First Orde red Date CENTRAL LINE DRESSING 1 11/13/2021 documented in this encounter Care Teams [facility] Office Supervisor Relationship Specialty Start Date End Date Julio César Briseno MD PCP - General 10/01/16 Eren Cr MD Referring Physician Medical Oncology 11/25/18 Yohana Bowen MD Radiation Oncologist Radiation Oncology 11/25/18 Sabrina Willard NP [address] [place] [address] Nurse Practitioner Medical Oncology 08/17/20 11/26/21 documented as of this encounter
--- OUTSIDE RECORDS SUMMARY | 2024-06-25 22:22 | XMS_ITS | Encounter Summary ---
Author Organization [facility] Healthcare Address [address] [place] [address] Care Team Providers Care Product Consultant Name Role Phone Julio César Briseno MD Primary Care Provider [phone] Eren Cr MD Unavailable Yohana Bowen MD Unavailable Encounter Details Date Type Department Care Team (Latest Contact Info) Description 11/27/2021 1:45 PM CDT - 11/27/2021 11:59 PM CDT Hospital Encounter 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 Gender Identity Not on file Sexual [...] capsuleIndications :supplement Take 1 tablet by mouth fluorescent solution mixer before breakfast 07/04/2016 4 cholecalciferol (VITAMIN D-3) 2,000 unit capsule Take 1 capsule (2,000 Units total) by mouth daily 30 capsule 2 04/25/2019 3 cholestyramine (QUESTRAN) 4 gram packet Take 1 packet by mouth 3 (three) times a day with meals 270 packet 3 09/04/2019 2 clotrimazole-betam ethasone (LOTRISONE) cream Apply 1 Application topically daily as needed (rash) 4 coenzyme [id number] 100-5 mg-unit capsuleIndications :supplement Take 1 tablet by mouth fluorescent solution mixer before breakfast 4 diphenoxylate-atro pine (LOMOTIL) 2.5-0.025 [...] dose).?? Avoid Jas's Wort, grapefruit products and [place] oranges while on treatment. placed on hold 09/26/22 for covid 01/29/2022 4 levothyroxine (Synthroid) 75 mcg tabletIndications: Hypothyroidism due to medication Take 1 tablet (75 mcg total) by mouth fluorescent solution mixer before breakfast 30 tablet 3 11/16/2021 2 [...] Priority Date/Time Associated Diagnosis Comments EGFR STAT 11/27/2021 1:08 PM CDT Neuro-endocrine carcinoma (CMS/HCC) (HCC) DIFFERENTIAL AUTO STAT 11/27/2021 1:0 8 PM CDT Neuro-endocrine carcinoma (CMS/HCC) (HCC) THYROID FUNCTION CASCADE Routine 11/27/2021 1:08 PM CDT Neuro-endocrine carcinoma (CMS/HCC) (HCC) CBC WITH AUTO DIFFERENTIAL STAT 11/27/2021 1:08 PM CDT Neuro-endocrine carcinoma (CMS/HCC) (HCC) T4, FREE Routine 11/27/2021 1:08 PM CDT Neuro-endocrine carcinoma (CMS/HCC) (HCC) PHOSPHORUS STAT 11/27/2021 1:08 PM CDT Neuro-endocrine carcinoma (CMS/HCC) (HCC) MAGNESIUM STAT 11/27/2021 1:08 PM CDT Neuro-endocrine carcinoma (CMS/HCC) (HCC) COMPREHENSIVE METABOLIC PANEL STAT 11/27/2021 1:08 PM CDT Neuro-endocrine carcinoma (CMS/HCC) (HCC) PROTEIN / CREATININE RATIO, URINE, RANDOM STAT 11/27/2021 12:33 PM CDT Neuro-endocrine carcinoma (CMS/HCC) (HCC) documented in this encounter Results * T4, free (11/27/2021 1:08 PM CDT) Free T4 1.10 0.90 - 1.70 ng/dL [facility] Blood 11/27/2021 1:08 PM CDT 11/27/2021 2:12 PM CDT Narrative [facility] - 11/27/2021 3:10 PM CDT This test was reflexed from a TSH result. us Eren Cr MD LAB BLOOD ORDERABLES Final Re sult [facility] Department [place] [address] * (ABNORMAL) eGFR (11/27/2021 1:08 PM CDT) eGFR 66(L) 90 - 130 mL/min/1. 73 m2 [facility] Comment: Interpretive Data Reference Interval Normal [...] was last reviewed 2021. Testing performed by: [facility], [address] [place] [phone] Blood 11/27/2021 1:08 PM CDT 11/27/2021 1:12 PM CDT us Eren Cr MD LAB BLOOD ORDERABLES Final Re sult [facility] [place] [address] * (ABNORMAL) Differential, auto (11/27/2021 1:08 PM CDT) Neutrophil abs 2.1 1.8 - 6.6 K/cumm [facility] Comment:Testing performed by : [facility], [address] [place] [phone] Lymphocyte abs 0.4(L) 1.2 - 3.3 K/cumm [facility] Comment:Testing performed by : [address] [phone] Monocyte abs 0.3 0.2 - 1.2 K/cumm [facility] Comment:Testing performed by : [facility], [address] [place] [phone] Eosinophil abs 0.5 0.0 - 0.5 K/cumm [facility] Comment:Testing performed by : [facility], [address] [place] [phone] Basophil abs 0.0 0.0 - 0.2 K/cumm [facility] Comment:Testing performed by : [address] [phone] Neutrophil pct 62.1 % [facility] Comment: Interpretive Data Percent cell count reference ranges are not reported, since discordance with absolute values may lead to misinterpretation of CBC data. Current Interpretive Data was last revised on 2017. Testing performed by: [address] [phone] Lymphocyte pct 11.9 % [facility] Comment: Interpretive Data Percent cell count reference ranges are not reported, since discordance with absolute values may lead to misinterpretation of CBC data. Current Interpretive Data was last revised on 2017. Testing performed by: [facility], [address] [place] [phone] Monocyte pct 9.9 % [facility] Comment:Testing performed by : [facility], [address] [place] [phone] Eosinophil pct 15.3 % [facility] Comment:Testing performed by : [facility], [address] [place] [phone] Basophil pct 0.8 % [facility] Comment:Testing performed by : [facility], [address] [place] [phone] Blood 11/27/2021 1:08 PM CDT 11/27/2021 1:12 PM CDT Eren Cr MD LAB BLOOD ORDERABLES Final Re sult Performing Organization Address [facility] de Phone Number [facility] [place] [address] * (ABNORMAL) TSH reflex to free T4 (11/27/2021 1:08 PM CDT) Pathologist [facility] TSH 7.16(H) 0.30 - 4.20 mcIUnit/mL [facility] Blood 11/27/2021 1:08 PM CDT 11/27/2021 2:04 PM CDT Eren Cr MD LAB BLOOD ORDERABLES Final Re sult Performing Organization Address [facility] [place] [address] * (ABNORMAL) CBC with auto differential (11/27/2021 1:08 PM CDT) Pathologist [facility] WBC 3.4(L) 3.8 - 9.8 K/cumm [facility] Comment:Testing performed by : [facility], [address] [place] [phone] Hgb 10.2(L) 12.1 - 15.1 g/dL [facility] Comment:Testing performed by : [facility], [address] [place], [place] [phone] Hct 28.5(L) 36.1 - 44.3 % [facility] Comment:Testing performed by : [facility], [address] [place] [address] Plt 97(L) 140 - 440 K/cumm [facility] Comment:Testing performed by : [place] [id number] MPV 8.3 6.8 - 10.4 fL [facility] Comment:Testing performed by : [facility], [address] [place] [address] RBC 2.69(L) 3.90 - 5.00 M/cumm [facility] Comment:Testing performed by : [place] [address] MCV 105.8(H) 80.0 - 97.6 fL [facility] Comment:Testing performed by : [facility], [address] [place], [place] [phone] MCH 37.9(H) 26.7 - 33.7 pg [facility] Comment: Result consistent with previously reported values. Testing performed by: [place] [id number] MCHC 35.8(H) 32.7 - 35.5 g/dL [facility] Comment:Testing performed by : [place] [id number] RDW CV 18.0(H) 11.8 - 14.6 % [facility] Comment:Testing performed by : [facility], [address] [place], [place] [id number] NRBC abs 0.00 0.00 - 0.01 K/cumm [facility] Comment:Testing performed by : [place] [id number] Blood 11/27/2021 1:08 PM CDT 11/27/2021 1:12 PM CDT Eren Cr MD LAB BLOOD ORDERABLES Final Re sult [facility] [place] [address] * (ABNORMAL) Comprehensive metabolic panel (11/27/2021 1:08 PM CDT) Sodium 141 135 - 145 mmol/L [facility] Comment:Testing performed by : [facility], [address] [place] [phone] Potassium, pl 4.0 3.3 - 4.9 mmol/L [facility] Comment:Testing performed by : [facility], [address] [place] [phone] Chloride 107 97 - 110 mmol/L [facility] Comment:Testing performed by : [facility], [address] [place] [phone] CO2 27 22 - 32 mmol/L [facility] Comment:Testing performed by : [facility], [address] [place] [phone] Anion gap 7 2 - 15 mmol/L [facility] Comment:Testing performed by : [facility], [address] [place] [phone] BUN 15 8 - 25 mg/dL [facility] Comment:Testing performed by : [facility], [address] [place] [phone] Creatinine 0.92 0.60 - 1.10 mg/dL [facility] Comment:Testing performed by : [address] [phone] Glucose 155 70 - 199 mg/dL [facility] Comment: Interpretive Data Fasting glucose >/= [...] was last revised 2017. Testing performed by: [facility], [address] [place] [phone] Calcium 10.3 8.5 - 10.3 mg/dL [facility] Comment:Testing performed by : [facility], [address] [place] [phone] Bilirubin, total 0.6 0.1 - 1.2 mg/dL [facility] Comment:Testing performed by : [facility], [address] [place] [phone] Protein, pl 6.0(L) 6.5 - 8.5 g/dL [facility] Comment:Testing performed by : [facility], [address] [place] [phone] Albumin 4.1 3.5 - 5.0 g/dL [facility] Comment:Testing performed by : [facility], [address] [place] [phone] Alk phos 72 40 - 130 Units/L [facility] Comment:Testing performed by : [facility], [address] [place] [phone] ALT 14 7 - 45 Units/L [facility] Comment:Testing performed by : [facility], [address] [place] [phone] AST 23 10 - 45 Units/L [facility] Comment:Testing performed by : [facility], [address] [place] [phone] Blood 11/27/2021 1:08 PM CDT 11/27/2021 1:12 PM CDT rEen Cr MD LAB BLOOD ORDERABLES Final Re sult [facility] [place] [address] * Magnesium (11/27/2021 1:08 PM CDT) Magnesium 1.4 1.4 - 2.5 mg/dL [facility] Comment:Testing performed by : [facility], [address] [place] [phone] Blood 11/27/2021 1:08 PM CDT 11/27/2021 1:12 PM CDT Eren Cr MD LAB BLOOD ORDERABLES Final Re sult Performing Organization Address [facility] Co de Phone Number [facility] [place] [address] * Phosphorus (11/27/2021 1:08 PM CDT) Pathologist [facility] Phosphorus, pl 2.5 2.3 - 4.5 mg/dL [facility] Comment:Testing performed by : [facility], [address] [place] [phone] Blood 11/27/2021 1:08 PM CDT 11/27/2021 1:12 PM CDT Result [facility] Eren Cr MD LAB BLOOD ORDERABLES Final Re sult Performing Organization Address [facility] de Phone Number [facility] [place] [address] * Protein / creatinine ratio, urine, random (11/27/2021 12:33 PM CDT) [facility] Protein, ur, quant 19.9 mg/dL [facility] Comment: Interpretive Data No reference range established. Current interpretive data was last revised 2018. Creatinine Ur 191.9 mg/dL [facility] Comment: Interpretive Data No reference range established. Current interpretive data was last revised 2018. Protein/creatinin e ratio 103.7 0.0 - 180.0 mg/g CR [facility] Urine 11/27/2021 12:3 3 PM CDT 11/27/2021 2:06 PM CDT Result [facility] Eren Cr MD LAB URINE ORDERABLES Final Re sult Performing Organization Address [facility] Co de Phone Number [facility] [place] [address] documented in this encounter Visit Diagnoses Diagnosis Neuro-endocrine carcinoma (HCC) Other malignant neoplasm of unspecified site documented in this encounter Care Teams Product Consultant Relationship Specialty Start Date End Date Julio César Briseno MD PCP - General 10/01/16 Eren Cr MD Referring Physician Medical Oncology 11/25/18 Yohana Bowen MD Radiation Oncologist Radiation Oncology 11/25/18 documented as of this encounter
--- OUTSIDE RECORDS SUMMARY | 2024-06-25 22:22 | XMS_ITS | Encounter Summary ---
Author Organization [facility] Address [address] [place] [address] Care Team Providers Care Chronic Condition Nurse Name Role Phone Julio César Briseno MD Primary Care Provider [phone] Eren Cr MD Unavailable [phone] Yohana Bowen MD Unavailable Encounter Details Date Type Department Care Team (Latest Contact Info) Description 12/11/2021 7:38 AM CDT - 12/11/2021 2:04 PM CDT Hospital Encounter [facility] [address] [place] [address] Neuroendocrine carcinoma (CMS/HCC) (HCC); Malignant neoplasm metastatic [...] file 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 Gender Identity Not on file Sexual Orientation [...] capsuleIndications :supplement Take 1 tablet by mouth environmental health physician before breakfast 07/04/2016 4 cholecalciferol (VITAMIN D-3) 2,000 unit capsule Take 1 capsule (2,000 Units total) by mouth daily 30 capsule 2 04/25/2019 3 cholestyramine (QUESTRAN) 4 gram packet Take 1 packet by mouth 3 (three) times a day with meals 270 packet 3 09/04/2019 2 clotrimazole-betam ethasone (LOTRISONE) cream Apply 1 Application topically daily as needed (rash) 4 coenzyme [id number] 100-5 mg-unit capsuleIndications :supplement Take 1 tablet by mouth environmental health physician before breakfast 4 diphenoxylate-atro pine (LOMOTIL) 2.5-0.025 [...] and 1 hour after each dose).?? Avoid Lago's Wort, grapefruit products and [place] oranges while on treatment. 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) DIFFERENTIAL AUTO Routine 12/11/2021 11: 22 AM CDT 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) CHROMOGRANIN A Routine 12/11/2021 11:22 AM CDT 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) CBC WITH AUTO DIFFERENTIAL Routine 12/11/2021 11:22 AM CDT 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) VITAMIN D 25 HYDROXY Routine 12/11/2021 11:22 AM CDT 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) PHOSPHORUS Routine 12/11/2021 11:22 AM CDT 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) LIPID PANEL Routine 12/11/2021 11:22 AM CDT 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) COMPREHENSIVE METABOLIC PANEL STAT 12/11/2021 11:22 AM CDT 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) documented in this encounter Results * (ABNORMAL) eGFR (12/11/2021 11:22 AM CDT) [facility] eGFR 65(L) 90 - 130 mL/min/1. 73 m2 JASON [...] last reviewed 2021. Testing performed by: [facility], [address] [place] [phone] Blood 12/11/2021 11:2 2 AM CDT 12/11/2021 11:26 AM CDT us Eren Cr MD LAB BLOOD ORDERABLES Final Re sult JASON [facility] [place] [address] * (ABNORMAL) Differential, auto (12/11/2021 11:22 AM CDT) Pathologist [facility] Neutrophil abs 2.6 1.8 - 6.6 K/cumm [facility] Comment:Testing performed by : [facility], [address] [place] [phone] Lymphocyte abs 0.4(L) 1.2 - 3.3 K/cumm [facility] Comment:Testing performed by : [facility], [address] [place] [phone] Monocyte abs 0.3 0.2 - 1.2 K/cumm [facility] Comment:Testing performed by : [facility], [address] [place] [phone] Eosinophil abs 0.4 0.0 - 0.5 K/cumm [facility] Comment:Testing performed by : [facility], [address] [place] [phone] Basophil abs 0.0 0.0 - 0.2 K/cumm [facility] Comment:Testing performed by : [facility], [address] [place] [phone] Neutrophil pct 69.8 % [facility] Comment: Interpretive Data Percent cell count reference ranges are not reported, since discordance with absolute values may lead to misinterpretation of CBC data. Current Interpretive Data was last revised on 2017. Testing performed by: [facility], [address] [place] [phone] Lymphocyte pct 10.1 % [facility] Comment: Interpretive Data Percent cell count reference ranges are not reported, since discordance with absolute values may lead to misinterpretation of CBC data. Current Interpretive Data was last revised on 2017. Testing performed by: [facility], [address] [place] [phone] Monocyte pct 8.7 % [facility] Comment:Testing performed by : [facility], [address] [place] [phone] Eosinophil pct 10.2 % [facility] Comment:Testing performed by : [facility], [address] [place] [phone] Basophil pct 1.2 % [facility] Comment:Testing performed by : [facility], [address] [place] [phone] Blood 12/11/2021 11:2 2 AM CDT 12/11/2021 11:26 AM CDT us Eren Cr MD LAB BLOOD ORDERABLES Final Re sult [facility] [place] [address] * (ABNORMAL) Lipid panel (12/11/2021 11:22 AM CDT) Cholesterol 165 30 - 199 mg/dL [facility] Comment: Interpretive Data Ages < or [...] Data was last revised on 2018. Triglycerides 203(H) <=149 mg/dL [facility] Comment: Interpretive Data Ages < or [...] on 2018. HDL 52 >=40 mg/dL [facility] Comment: Interpretive Data Ages < or [...] 2018. LDL, calculated 72 <=129 mg/dL [facility] Comment: Interpretive Data Ages < or [...] was last revised on 2018. Non-HDL Cholesterol 113 mg/dL J[facility] Comment: Interpretive Data Ages < or [...] on 2018. Chol/HDL ratio [address] [facility] Blood 12/11/2021 11:2 2 AM CDT 12/11/2021 11:48 AM CDT us Eren Cr MD LAB BLOOD ORDERABLES Final Re sult Performing Organization Address City/[facility]/ZIP Co de Phone Number [facility] [place] [address] * (ABNORMAL) Phosphorus (12/11/2021 11:22 AM CDT) Phosphorus, pl 1.8(L) 2.3 - 4.5 mg/dL [facility] Comment:Testing performed by : [facility], [address] [place] [phone] Blood 12/11/2021 11:2 2 AM CDT 12/11/2021 11:26 AM CDT us Eren Cr MD LAB BLOOD ORDERABLES Final Re sult [facility] [place] [address] * (ABNORMAL) Vitamin D 25 hydroxy (12/11/2021 11:22 AM CDT) Vitamin D 25-OH 20(L) 30 - 80 ng/mL [facility] Blood 12/11/2021 11:2 2 AM CDT 12/11/2021 11:48 AM CDT us Eren Cr MD LAB BLOOD ORDERABLES Final Re sult JASON [facility] [place] [address] * (ABNORMAL) CBC with auto differential (12/11/2021 11:22 AM CDT) WBC 3.7(L) 3.8 - 9.8 K/cumm J[facility]ON [facility] Comment:Testing performed by : [facility], [address] [place] [phone] Hgb 11.6(L) 12.1 - 15.1 g/dL [facility]ON [facility] Comment:Testing performed by : [address] [phone] Hct 32.8(L) 36.1 - 44.3 % [facility]ON [facility] Comment:Testing performed by : [facility], [address] [place] [phone] Plt 110(L) 140 - 440 K/cumm [facility]ON [facility] Comment:Testing performed by : [address] [phone] MPV 8.8 6.8 - 10.4 fL [facility] Comment:Testing performed by : [address] [phone] RBC 3.13(L) 3.90 - 5.00 M/cumm [facility] Comment:Testing performed by : [address] [phone] MCV 104.5(H) 80.0 - 97.6 fL [facility] Comment:Testing performed by : [address] [phone] MCH 37.0(H) 26.7 - 33.7 pg CERMINNIE BLACK Comment:Testing performed by : [address] [phone] MCHC 35.4 32.7 - 35.5 g/dL [facility]ON [facility]ACK Comment:Testing performed by : [facility], [address] [place] [phone] RDW CV 14.3 11.8 - 14.6 % JASNO [facility]ACK Comment:Testing performed by : [facility], [address] [place] [phone] NRBC abs 0.00 0.00 - 0.01 K/cumm J[facility]ON BLACK Comment:Testing performed by : [facility], [address] [place] [phone] Blood 12/11/2021 11:2 2 AM CDT 12/11/2021 11:26 AM CDT us Eren Cr MD LAB BLOOD ORDERABLES Final Re sult JASON [facility] [place] [address] * (ABNORMAL) Comprehensive metabolic panel (12/11/2021 11:22 AM CDT) Sodium 138 135 - 145 mmol/L J[facility]ON BLACK Comment:Testing performed by : [facility], [address] [place] [phone] Potassium, pl 3.7 3.3 - 4.9 mmol/L J[facility]ON [facility]ACK Comment:Testing performed by : [facility], [address] [place] [phone] Chloride 107 97 - 110 mmol/L J[facility]ON BLACK Comment:Testing performed by : [facility], [address] [place] [phone] CO2 27 22 - 32 mmol/L JASON [facility]ACK Comment:Testing performed by : [facility], [address] [place] [phone] Anion gap 4 2 - 15 mmol/L J[facility]ON BLACK Comment:Testing performed by : [facility], [address] [place] [phone] BUN 15 8 - 25 mg/dL J[facility]ON BLACK Comment:Testing performed by : [facility], [address] [place] [phone] Creatinine 0.93 0.60 - 1.10 mg/dL [facility] Comment:Testing performed by : [facility], [address] [place] [phone] Glucose 117 70 - 199 mg/dL [facility] Comment: [...] was last revised 2017. Testing performed by: [place] [phone] Calcium 10.0 8.5 - 10.3 mg/dL [facility] Comment:Testing performed by : [facility], [address] [place] [phone] Bilirubin, total 0.6 0.1 - 1.2 mg/dL [facility] Comment:Testing performed by : [address] [phone] Protein, pl 6.1(L) 6.5 - 8.5 g/dL [facility] Comment:Testing performed by : [address] [phone] Albumin 4.0 3.5 - 5.0 g/dL [facility] Comment:Testing performed by : [facility], [address] [place] [phone] Alk phos 77 40 - 130 Units/L [facility] Comment:Testing performed by : [place] [phone] ALT 22 7 - 45 Units/L [facility] Comment:Testing performed by : [place] [phone] AST 32 10 - 45 Units/L [facility] Comment:Testing performed by : [facility], [address] [place] [phone] Blood 12/11/2021 11:2 2 AM CDT 12/11/2021 11:26 AM CDT Eren Cr MD LAB BLOOD ORDERABLES Final Re sult JASON [facility] [place] [address] * (ABNORMAL) Chromogranin A (12/11/2021 11:22 AM CDT) Chromogranin A 773(H) <93 ng/mL JASON BLACK Comment: Impaired renal or hepatic function or treatment with proton pump inhibitors may result in artifactual elevations of Chromogranin A. ADDITIONAL INFORMATION This test was developed and its performance characteristics determined by [facility] in a manner consistent with CLIA [...] homogeneous time-resolved immunofluorescent assay manufactured by [employer] and performed on the [employer] Kryptor Compact Plus. ? Values obtained with different assay methods or kits may be different and cannot be used interchangeably. ? Test results cannot be interpreted as absolute evidence for the presence or absence of malignant disease. Test Performed by: [address] [address] Fire Assistant: Immanuel Novak M.D. Ph.D.; CLIA# [id number] Blood 12/11/2021 11:2 2 AM CDT 12/11/2021 11:34 AM CDT us Eren Cr MD LAB BLOOD ORDERABLES Final Re sult JASON [facility] [place] [address] documented in this encounter Visit Diagnoses Diagnosis Neuroendocrine carcinoma (HCC) Other malignant neoplasm of unspecified site Malignant neoplasm metastatic to liver (HCC) documented in this encounter Care Teams Chronic Condition Nurse Relationship Specialty Start Date End Date Julio César Briseno MD PCP - General 10/01/16 Eren Cr MD Referring Physician Medical Oncology 11/25/18 Yohana Bowen MD Radiation Oncologist Radiation Oncology 11/25/18 documented as of this encounter
--- OUTSIDE RECORDS SUMMARY | 2024-06-25 22:22 | XMS_ITS | Encounter Summary ---
Author Organization [facility] Address [address] [place] [address] Phone Care Team Providers Care Corrective Therapy Aide Name Role Phone Julio César Briseno MD Primary Care Provider [phone] Eren Cr MD Unavailable [phone] Yohana Bowen MD Unavailable Sabrina Willard NP Unavailable [phone] 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) Procedures [place] OCTREOTIDE INJECTION, DEPOT Octreotide 28 Day Cycles - Carcinoid Eren Cr MD [address] [facility] [address] [place] [address] Phone: tel: fax: [facility] [address] [address] Phone: tel: fax: Referral ID Status Reason Start Date Expiration Date V isits Requested Visits Authorized [id number] Authorized 11/28/2017 02/05/2025 1 150 Encounter Details Date Type Department Care Team (Late st Contact Info) Description 11/13/2021 3:00 PM CDT Infusion [facility] [address] [facility] 7th [place] [address] Neuroendocrine carcinoma (CMS/HCC) (HCC) (Primary Dx); Malignant [...] file 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 female who presents for the following injection: Pneumococcal, MMR, Shingle vaccines. Nursing Assessment Nursing Assessment Appetite:: Fair Diarrhea:: Yes Constipation:: No Last BM Date: 11/13/21 Existing Patients: Any falls since your last visit? : No New Patients: Any falls since your last visit? : N/A Fatigue:: Occassional Mouth Sores:: Yes Nausea/Vomiting:: No Pain:: Yes Peripheral Neuropathy: : No Pt states has potential to be ? : No Shortness of Breath?: No Pt is on oxygen? : No Skin Condition/Temp: Warm, Dry Oral Mucosa Grade: Painful erythema, edema, or ulcers, can swallow (II) Abdomen: Soft Additional Notes: BP: 134/64 Temp: 36.6 ??C (97.8 ??F) Temp src: Transdermal Pulse: 74 Resp: 20 SpO2: 97 % Weight: 76.4 kg (168 lb 6.4 oz) Patient: met treatment parameters La Chung tolerated injection well Additional Notes: Discharge Plan Discharge instructions given to patient. Discharge Mode: Ambulatory Accompanied by: Self Discharged To: Home * Bessy Hall RN - 11/13/2021 3:00 PM CDT Oncology Nursing Note [facility] La Chung is a 71 y.o. female who presents for the following injection: Sandostatin, Xgeva. Nursing Assessment Nursing Assessment Appetite:: Fair Diarrhea:: Yes Constipation:: No Last BM Date: 11/13/21 Existing Patients: Any falls since your last visit? : No New Patients: Any falls since your last visit? : N/A Fatigue:: Occassional Mouth Sores:: Yes Nausea/Vomiting:: No Pain:: Yes Peripheral Neuropathy: : No Pt states has potential to be ? : No Shortness of Breath?: No Pt is on oxygen? : No Skin Condition/Temp: Warm, Dry Oral Mucosa Grade: Painful erythema, edema, or ulcers, can swallow (II) Abdomen: Soft Additional Notes: Disregard vaccine note. Patient did not receive vaccines. BP: 134/64 Temp: 36.6 ??C (97.8 ??F) Temp src: Transdermal Pulse: 74 Resp: 20 SpO2: 97 % Weight: 76.4 kg (168 lb 6.4 oz) Patient: met treatment parameters La Chung tolerated injection well Additional Notes: Discharge Plan Discharge instructions given to patient. Discharge Mode: Ambulatory Accompanied by: Family Discharged To: Home documented in this encounter [...] 120 mg 120 mg, subcutaneous, Once, On Sat11/13/21 at 1600, For 1 dose, Calcium level should be greater than 8 mg/dl Administer injection in upper arm, abdomen or upper thigh Refrigerate. Allow to stand 15 to 30 mins prior to useIndications:Bone metastasis,Neuro-endocrine carcinoma (HCC) Given 11/13/2021 3:31 PM CDT 120 mg Right Lower Abdomen octreotide LAR (SandoSTATIN LAR) extended release intramuscular injection 30 mg 30 mg, intramuscular, Once, On Sat11/13/21 at 1600, For 1 dose, Refrigerate. For IM intragluteal administration only- alternate gluteal sites. Shake.Indications:Malignan t neoplasm metastatic to liver (HCC),Neuroendocrine carcinoma (HCC) Given 11/13/2021 3:37 PM CDT 30 mg Left Dorsogluteal/Butto ck documented in this encounter Orders Nursing Count Last Ordered Date First Orde red Date ONCBCN NURSING COMMUNICATION [id number] 1 11/13 ONCBCN NURSING COMMUNICATION [id number] 1 0 11/13/2021 PHYSICIAN COMMUNICATION ORDER 1 11/13/2021 Appointment Requests Count Last Ordered Date Fi rst Ordered Date ONCBCN INJECTION APPOINTMENT REQUEST 1 03/2022 documented in this encounter Care Teams Corrective Therapy Aide Relationship Specialty Start Date End Date Julio César Briseno MD PCP - General 10/01/16 Eren Cr MD Referring Physician Medical Oncology 11/25/18 Yohana Bowen MD Radiation Oncologist Radiation Oncology 11/25/18 Sabrina Willard NP [address] [place] [address] Nurse Practitioner Medical Oncology 08/17/20 11/26/21 documented as of this encounter
--- OUTSIDE RECORDS SUMMARY | 2024-06-25 22:22 | XMS_ITS | Encounter Summary ---
Author Organization [facility] Address [address] [place] [address] Phone Care Team Providers Care Shipping Inspector Name Role Phone Julio César Briseno MD Primary Care Provider Eren Cr MD Unavailable [phone] Yohana Bowen MD Unavailable Sabrina Willard NP Unavailable Encounter Details Date Type Department Care Team (Late st Contact Info) Description 11/16/2021 Orders Only [facility] [address] 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 Gender Identity Not on file Sexual Orientation Straight 02/19/2021 9: 29 AM CDT Occupation Industry Job Start Date Job End Date retired Not on file Not on file Not on file documented as of this encounter Ordered Prescriptions Prescription Sig Dispense Quantity Refills Last Filled Start Date End Date levothyroxine (Synthroid) 75 mcg tabletIndications: Hypothyroidism due to medication Take 1 tablet (75 mcg total) by mouth bingo attendant before breakfast 30 tablet 3 11/16/2021 documented in this encounter Plan of Treatment Not on file documented as of this encounter Visit Diagnoses Diagnosis Hypothyroidism due to medication- Primary documented in this encounter Care Teams Shipping Inspector Relationship Specialty Start Date End Date Julio César Briseno MD PCP - General 10/01/16 Eren Cr MD Referring Physician Medical Oncology 11/25/18 Yohana Bowen MD Radiation Oncologist Radiation Oncology 11/25/18 Sabrina Willard NP [address] [place] [address] Nurse Practitioner Medical Oncology 08/17/20 11/26/21 documented as of this encounter
--- OUTSIDE RECORDS SUMMARY | 2024-06-25 22:22 | XMS_ITS | Encounter Summary ---
Author Organization [facility] Address [address] [place] [address] Phone Care Team Providers Care Cable Television Technician Name Role Phone Julio César Briseno MD Primary Care Provider [phone] Eren Cr MD Unavailable [phone] Yohana Bowen MD Unavailable Reason for Visit * Episode Based Medications (Routine) - Authorized Specialty Diagnoses / Procedures Referred By Evelyne t Referred To Contact Diagnoses Hypomagnesemia Eren Cr MD [address] [facility] [address] [place] [address] Phone: tel: fax: [facility] and [facility] 7th [place] [address] Phone: tel: Referral ID Status Reason Start Date Expiration Date V isits Requested Visits Authorized [id number] Authorized 11/13/2021 04/01/2025 30 Encounter Details Date Type Department Care Team (Late st Contact Info) Description 11/27/2021 2:30 PM CDT Infusion [facility] Oncology [address] [place] [address] 7th [place] [address] Hypomagnesemia (Primary Dx); Neuroendocrine carcinoma (CMS/HCC) (HCC); Hypophosphatemia Social History [...] on file 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 female who presents for treatment of Magnesium replacement. Pre-treatment Nursing Assessment Nursing Assessment Appetite:: Fair ( better Drinking water and fluids well.) Diarrhea:: No Constipation:: No Last BM Date: 11/27/21 (has colostomy has help from and family member to change. ContentsWNL , no excessive emptying of applicance.) Existing Patients: Any falls since your last visit? : No Fatigue:: Occassional ( doing better ) Mouth Sores:: No Nausea/Vomiting:: No Pain:: Yes ( a little pain in my feet , mostly my right . Pain improving.) Peripheral Neuropathy: : No Pt states has potential to be ? : N/A Shortness of Breath?: No Lungs auscultated PRN:: No Pt is on oxygen? : No Respiratory Effort Characteristics: Dyspnea lying ( longer distances . Resolves with rest. MD aware) Skin Condition/Temp: Warm, Dry Oral Mucosa Grade: Normal (0) Abdomen: Soft Swelling:: No Additional Notes: Feels good . BP: 137/76 Temp: (!) 35.8 ??C (96.5 ??F) Temp src: Transdermal Pulse: 75 Resp: 16 SpO2: 98 % Weight: 79.2 kg (174 lb 9.6 oz) Pain Score: 0 - No pain Treatment Patient: met treatment parameters Pre blood return: Mary Chung tolerated treatment well. Not due for Xgeva or Octreotide today. Additional Notes: Pharmacist here to speak with pt and dispensed Cabozantinib/Placebo. Has AVS as issued per schedulers and to return as such. Post blood return: Brisk IV access post infusion:NS/ Heparin 100 units/mL Patient Education Treatment Education: Information/teaching given to patient including Symptom management Response: Verbalizes understanding Discharge Plan Discharge instructions given to patient. Future appointments given and reviewed with treatment plan. Discharge Mode: Ambulatory Accompanied by: Self with daughter. Discharged To: Home documented in this encounter [...] Once as needed, line care, Starting on Sat11/27/21 at 1314, Flush with Heparin immediately prior to de-accessing port.Indications:Hypophosphatem ia Given 11/27/2021 5:41 PM CDT 500 Units Given 11/27/2021 1:03 PM CDT 500 Units magnesium sulfate 2 g in sodium chloride 0.9% 100 mL IVPB 2 g, intravenous, at 104 mL/hr, Administer over 60 Minutes, Once, On Sat11/27/21 at 1630, For 1 doseIndications:Hypomagnesemia New Bag 11/27/2021 4:20 PM CDT 2 g 104 mL/hr sodium chloride 0.9% flush 10 mL 10 mL, intravenous, As needed, line care, Starting on Sat11/27/21 at 1314, Flush pre and post IV catheter use.Indications:Hypophosphatemia Given 11/27/2021 5:41 PM CDT 10 mL Given 11/27/2021 1:02 PM CDT 10 mL Given 11/27/2021 1:00 PM CDT 10 mL sodium chloride 0.9% infusion 20 mL/hr, intravenous, As needed, As needed as back up fluid for infusions, Starting on 11/27/21 at 1554Indications:Hypophosphatemia New Bag 11/27/2021 4:06 PM CDT 20 mL/hr 20 mL/hr documented in this encounter Orders Appointment Requests Count Last Ordered Date Fi rst Ordered Date ONCBCN INFUSION APPT REQUEST 1 11/27/2021 documented in this encounter Care Teams Cable Television Technician Relationship Specialty Start Date End Date Julio César Briseno MD PCP - General 10/01/16 Eren Cr MD Referring Physician Medical Oncology 11/25/18 Yohana Bowen MD Radiation Oncologist Radiation Oncology 11/25/18 documented as of this encounter
--- OUTSIDE RECORDS SUMMARY | 2024-06-25 22:22 | XMS_ITS | Encounter Summary ---
Author Organization [facility] Address [address] [place] [address] Phone Care Team Providers Care Automatic Log Cut Off Sawyer Name Role Phone Julio César Briseno MD Primary Care Provider [phone] Eren Cr MD Unavailable Yohana Bowen MD Unavailable Sabrina Willard NP Unavailable [phone] Encounter Details Date Type Department Care Team (Late st Contact Info) Description 11/16/2021 Orders Only [facility] Oncology [address] [facility] Advanced Medicine 7th [place] [address] [place] [address] Julio César Valderrama MD [address] [place] [address] Hypomagnesemia (Primary Dx); Neuroendocrine carcinoma (CMS/HCC) (HCC) Social [...] on file 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
--- OUTSIDE RECORDS SUMMARY | 2024-06-25 22:22 | XMS_ITS | Encounter Summary ---
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 Gender Identity Not on file Sexual Orientation Straight 02/19/2021 9: 29 AM CDT Occupation Industry Job Start Date Job End Date retired Not on file Not on file Not on file documented as of this encounter Plan of Treatment Not on file documented as of this encounter Visit Diagnoses Not on filedocumented in this encounter Care Teams Corporate Statistical Financial Analyst Relationship Specialty Start Date End Date Julio César Briseno MD PCP - General 10/01/16 Eren Cr MD Referring Physician Medical Oncology 11/25/18 Yohana Bowen MD Radiation Oncologist Radiation Oncology 11/25/18 documented as of this encounter
--- OUTSIDE RECORDS SUMMARY | 2024-06-25 22:22 | XMS_ITS | Encounter Summary ---
Author Organization 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 Eren Cr MD [address] [facility] [address] [place] [address] Phone: tel: fax: [facility] and [facility] [address] [facility] 7th [place] [address] Phone: tel: Referral ID Status Reason Start Date Expiration Date Visits Re quested Visits Authorized [id number] Closed 06/21/2021 06/26/2024 1 99 Encounter Details Date Type Department Care Team (Latest Contact Info) Description 11/27/2021 2:45 PM CDT Research Med Pick-Up/CTRU Regional Owner Operator Truck Driver [facility] Oncology [address] [place] [address] 7th [place] [address] Neuro-endocrine carcinoma (CMS/HCC) (HCC) (Primary Dx) Social [...] file 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 documented in this encounter Plan of Treatment Not on file documented as of this encounter Visit Diagnoses Diagnosis Neuro-endocrine carcinoma (HCC)- Primary Other malignant neoplasm of unspecified site documented in this encounter Orders Medications Ordered That Brett ht Not Have Been Administered Count Last Ordered Date First Ordered Date [facility] cabozantinib/pl acebo (2018-02-/[id number]) tablet 40 mg 1 11/27/2021 Appointment Requests Count Last Ordered Date Fi rst Ordered Date ONCBCN TAKE HOME STUDY DRUG APPT 1 11/28/19 22 documented in this encounter Care Teams Franchise Sales Manager Relationship Specialty Start Date End Date Julio César Briseno MD PCP - General 10/01/16 Eren Cr MD Referring Physician Medical Oncology 11/25/18 Yohana Bowen MD Radiation Oncologist Radiation Oncology 11/25/18 documented as of this encounter
--- OUTSIDE RECORDS SUMMARY | 2024-06-25 22:22 | XMS_ITS | Encounter Summary ---
Author Organization [facility] Address [address] [place] [address] Phone Care Team Providers Care Switchboard Operator Supervisor Name Role Phone Julio César Briseno MD Primary Care Provider Eren Cr MD Unavailable [phone] Yohana Bowen MD Unavailable Encounter Details Date Type Department Care Team (Late st Contact Info) Description 12/11/2021 Orders Only [facility] Oncology [address] [facility] 7th [place] [address] [place] [address] Eren Cr MD [address] [facility] [address] [place] [address] Social History Tobacco Use Types Packs/Day Years [...] on file Legal Sex Female 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 USER 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 Gender Identity Not on file Sexual Orientation Straight 02/19/2021 9: 29 AM CDT Occupation Industry Job Start Date Job End Date retired Not on file Not on file Not on file documented as of this encounter Plan of Treatment Not on file documented as of this encounter Visit Diagnoses Not on filedocumented in this encounter Care Teams Switchboard Operator Supervisor Relationship Specialty Start Date End Date Julio César Briseno MD PCP - General 10/01/16 Eren Cr MD Referring Physician Medical Oncology 11/25/18 Yohana Bowen MD Radiation Oncologist Radiation Oncology 11/25/18 documented as of this encounter
--- OUTSIDE RECORDS SUMMARY | 2024-06-25 22:22 | XMS_ITS | Encounter Summary ---
Author Organization [facility] Address [address] [place] [address] Phone Care Team Providers Care Early Childhood Education Coordinator Name Role Phone Julio César Briseno MD Primary Care Provider Eren Cr MD Unavailable [phone] Yohana Bowen MD Unavailable Encounter Details Date Type Department Care Team (Late st Contact Info) Description 12/11/2021 Orders Only 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 Gender Identity Not on file Sexual Orientation Straight 02/19/2021 9: 29 AM CDT Occupation Industry Job Start Date Job End Date retired Not on file Not on file Not on file documented as of this encounter Plan of Treatment Not on file documented as of this encounter Visit Diagnoses Diagnosis Nipple discharge in female- Primary documented in this encounter Care Teams Early Childhood Education Coordinator Relationship Specialty Start Date End Date Julio César Briseno MD PCP - General 10/01/16 Eren Cr MD Referring Physician Medical Oncology 11/25/18 Yohana Bowen MD Radiation Oncologist Radiation Oncology 11/25/18 documented as of this encounter
--- OUTSIDE RECORDS SUMMARY | 2024-06-25 22:22 | XMS_ITS | Encounter Summary ---
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 Advanced [facility] 7th [place] [address] Neuroendocrine carcinoma (CMS/HCC) (HCC) (Primary Dx); Malignant [...] file Legal Sex Female 2:41 PM HEAD OF BUSINESS DEVELOPMENT Gender Identity Not on file Sexual Orientation Straight 02/19/2021 9: 29 AM CDT Occupation Industry Job Start Date Job End Date retired Not on file Not on file Not on file documented as of this encounter Last Filed Vital Signs Vital Sign Reading Time Taken Comments Blood Pressure 186/75 12/11/2021 12:46 PM CDT Pulse 72 12/11/2021 12:46 PM CDT Temperature 36.7 ??C (98.1 ??F) 12/11/2021 12:46 PM C DT Respiratory Rate 20 12/11/2021 12:46 PM CDT Oxygen Saturation 98% 12/11/2021 12:46 PM CDT Inhaled Oxygen Concentration - - Weight 77.8 kg (171 lb 8.3 oz) 12/11/2021 12:46 PM CDT Height - - Body Mass Index 31.37 10/19/2021 4:00 PM CDT documented in this encounter Nursing Notes * Lisseth Parker RN - 12/11/2021 10:45 AM CDT Oncology Nursing Note [facility] ONCOLOGY La Chung is a 71 y.o. female who presents for the following injection: sandostatin 30 mg Nursing Assessment Nursing Assessment Appetite:: Good Diarrhea:: No Constipation:: No Last BM Date: 12/11/21 Existing Patients: Any falls since your last visit? : No New Patients: Any falls since your last visit? : No Fatigue:: Occassional Mouth Sores:: No Nausea/Vomiting:: No Pain:: No Peripheral Neuropathy: : No Pt states has potential to be ? : N/A Shortness of Breath?: No Lungs auscultated PRN:: No Pt is on oxygen? : No Skin Condition/Temp: Warm, Dry Oral Mucosa Grade: Normal (0) Abdomen: Soft Swelling:: No Additional Notes: right buttock BP: (!) 186/75 Temp: 36.7 ??C (98.1 ??F) Temp src: Temporal Pulse: 72 Resp: 20 SpO2: 98 % Weight: 77.8 kg (171 lb 8.3 oz) Patient: met treatment parameters La Chung [...] 30 mg 30 mg, intramuscular, Once, On Sat12/11/21 at 1300, For 1 dose, Refrigerate. For IM intragluteal administration only- alternate gluteal sites. 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),Neuroendocrine carcinoma (HCC) Given 12/11/2021 1:04 PM CDT 30 mg Right Dorsogluteal/Butt ock documented in this encounter Orders Medications Ordered That Brett ht Not Have Been Administered Count Last Ordered Date First Ordered Date octreotide LAR (SandoSTATIN LAR) extended release intramuscular injection 30 mg 1 12/11/2021 Appointment Requests Count Last Ordered Date Fi rst Ordered Date ONCBCN INJECTION APPOINTMENT REQUEST 1 12/2021 documented in this encounter Care Teams Physical Testing Supervisor Relationship Specialty Start Date End Date Julio César Briseno MD PCP - General 10/01/16 Eren Cr MD Referring Physician Medical Oncology 11/25/18 Yohana Bowen MD Radiation Oncologist Radiation Oncology 11/25/18 documented as of this encounter
--- OUTSIDE RECORDS SUMMARY | 2024-06-25 22:22 | XMS_ITS | Encounter Summary ---
Author Organization [facility] Address [address] [place] [address] Phone Care Team Providers Care Metal Roofer Name Role Phone Julio César Briseno MD Primary Care Provider [phone] Eren rC MD Unavailable [phone] Yohana Bowen MD Unavailable Reason for Visit * Episode Based Medications (Routine) - Closed Specialty Diagnoses / Procedures Referred By Evelyne bowman Referred To Contact Diagnoses Neuro-endocrine carcinoma (HCC) Procedures study [id number] phase III cabozantinib Eren Cr MD [address] [facility] [address] [place] [address] Phone: tel: fax: [facility] and [facility] [address] [facility] 7th [place] [address] Phone: tel: Referral ID Status Reason Start Date Expiration Date Visits Re quested Visits Authorized [id number] Closed 06/21/2021 06/26/2024 1 99 Encounter Details Date Type Department Care Team (Latest Contact Info) Description 11/27/2021 12:30 PM CDT Clinical Support [facility] Oncology [facility] 7th [place] [address] [place] [address] Neuro-endocrine carcinoma (CMS/HCC) (HCC) (Primary Dx); Hypophosphatemia [...] on file Legal Sex Female 2:41 PM OFFICE SUPPORT Gender Identity Not on file Sexual Orientation [...] Given 11/27/2021 1:03 PM CDT 500 Units sodium chloride 0.9% flush 10 mL 10 mL, intravenous, As needed, line care, Starting on Sat11/27/21 at 1314, Flush pre and post IV catheter use.Indications:Hypophosphatemia Given 11/27/2021 5:41 PM CDT 10 mL Given 11/27/2021 1:02 PM CDT 10 mL Given 11/27/2021 1:00 PM CDT 10 mL documented in this encounter Orders Appointment Requests Count Last Ordered Date Fi rst Ordered Date ONCBCN LAB APPOINTMENT 1 11/27/2021 documented in this encounter Care Teams Metal Roofer Relationship Specialty Start Date End Date Julio César Briseno MD PCP - General 10/01/16 Eren Cr MD Referring Physician Medical Oncology 11/25/18 Yohana Bowen MD Radiation Oncologist Radiation Oncology 11/25/18 documented as of this encounter
--- OUTSIDE RECORDS SUMMARY | 2024-06-25 22:23 | XMS_ITS | Encounter Summary ---
Author Organization [facility] Address [address] [place] [address] Phone Care Team Providers Care Horse Race Timer Name Role Phone Julio César Briseno MD Primary Care Provider Eren Cr MD Unavailable [phone] Yohana Bowen MD Unavailable Sabrnia Willard NP Unavailable [phone] Encounter Details Date Type Department Care Team (Latest Contact Info) Description 10/16/2021 Research Med Pick-Up/CTRU Lead Assembler [facility] Oncology [address] [place] [address] Advanced Medicine 7th [place] [address] Heidi Grossman, [facility] Neuro-endocrine carcinoma (CMS/HCC) (HCC) (Primary Dx) Social [...] on file Legal Sex 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
--- OUTSIDE RECORDS SUMMARY | 2024-06-25 22:23 | XMS_ITS | Encounter Summary ---
Author Organization [facility] Address [address] [place] [address] Phone Care Team Providers Care Document Control Specialist Name Role Phone Julio César Briseno MD Primary Care Provider [phone] Eren Cr MD Unavailable [phone] Yohana Bowen MD Unavailable Sabrina Willard NP Unavailable [phone] Encounter Details Date Type Department Care Team (Late st Contact Info) Description 09/18/2021 Orders Only [facility] Oncology [address] [facility] Advanced Medicine 7th [place] [address] [place] [address] Roshni Gutierrez CMA Metastasis to liver (CMS/HCC) (HCC) (Primary Dx) Social [...] on file Legal Sex Female 2:41 PM CARGO BRACER Gender Identity Not on file Sexual Orientation Straight 02/19/2021 9: 29 AM CDT Occupation Industry Job Start Date Job End Date retired Not on file Not on file Not on file documented as of this encounter Plan of Treatment Not on file documented as of this encounter Visit Diagnoses Diagnosis Metastasis to liver (HCC)- Primary Secondary malignant neoplasm of liver documented in this encounter Care Teams Document Control Specialist Relationship Specialty Start Date End Date Julio César Briseno MD PCP - General 10/01/16 Eren Cr MD Referring Physician Medical Oncology 11/25/18 Yohana Bowen MD Radiation Oncologist Radiation Oncology 11/25/18 Sabrina Willard NP [address] [place] [address] Nurse Practitioner Medical Oncology 08/17/20 11/26/21 documented as of this encounter
--- OUTSIDE RECORDS SUMMARY | 2024-06-25 22:23 | XMS_ITS | Encounter Summary ---
Author Organization [facility] Address [address] [place] [address] Phone Care Team Providers Care Styrene Dehydration Reactor Operator Name Role Phone Julio César Briseno MD Primary Care Provider [phone] Eren Cr MD Unavailable [phone] Yohana Bowen MD Unavailable Sabrina Willard NP Unavailable [phone] Reason for Visit * Episode Based Medications (Routine) - Closed Specialty Diagnoses / Procedures Referred By Contac t Referred To Contact Diagnoses Neuro-endocrine carcinoma (HCC) Procedures study [id number] phase III cabozantinib Eren Cr MD [address] [place] [address] Phone: tel: fax: [facility] [address] [facility] 7th [place] [address] Phone: tel: Referral ID Status Reason Start Date Expiration Date Visits Re quested Visits Authorized [id number] Closed 06/21/2021 06/26/2024 1 99 Encounter Details Date Type Department Care Team (Latest Contact Info) Description 09/18/2021 4:00 PM CDT Research Med Pick-Up/CTRU Cataloging Assistant [facility] [address] 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 Gender Identity Not on file Sexual [...] Date First Ordered Date [facility] cabozantinib/pl acebo (2018-02-/[id number]) tablet 60 mg 1 09/18/2021 Appointment Requests Count Last Ordered Date Fi rst Ordered Date ONCBCN TAKE HOME STUDY DRUG APPT 1 09/19/19 22 documented in this encounter Care Teams Styrene Dehydration Reactor Operator Relationship Specialty Start Date End Date Julio César Briseno MD PCP - General 10/01/16 Eren Cr MD Referring Physician Medical Oncology 11/25/18 Yohana Bowen MD Radiation Oncologist Radiation Oncology 11/25/18 Sabrina Willard NP [address] [place] [address] Nurse Practitioner Medical Oncology 08/17/20 11/26/21 documented as of this encounter
--- OUTSIDE RECORDS SUMMARY | 2024-06-25 22:23 | XMS_ITS | Encounter Summary ---
Author Organization [facility] Address [address] [place] [address] Phone Care Team Providers Care Rn Lvn Name Role Phone Julio César Briseno MD Primary Care Provider [phone] Eren Cr MD Unavailable [phone] Yohana Bowen MD Unavailable Sabrina Willard NP Unavailable Encounter Details Date Type Department Care Team (Late st Contact Info) Description 10/09/2021 Orders Only [facility] [address] [facility] 7th [place] [address] [place] [address] Eren Cr MD [address] [facility] [address] [place] [address] Neuroendocrine carcinoma (CMS/HCC) (HCC) (Primary Dx) Social [...] on file Legal Sex Female 2:41 PM 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
--- OUTSIDE RECORDS SUMMARY | 2024-06-25 22:23 | XMS_ITS | Encounter Summary ---
Author Organization [facility] Address [address] [place] [address] Phone Care Team Providers Care Salicylic Acid Blender Name Role Phone Julio César Briseno MD Primary Care Provider [phone] rEen Cr MD Unavailable [phone] Yohana Bowen MD Unavailable Sabrina Willard NP Unavailable [phone] Reason for Visit * Reason Comments Injections Xgeva and Sandostati n OP Infusion 4 g IV mag * Episode Based Medications (Routine) - Authorized Specialty Diagnoses / Procedures Referred By Contac t Referred To Contact Oncology Diagnoses Neuroendocrine carcinoma (HCC) 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 female who presents for the following injection: Xgeva 120 mg, Sandostatin 30 mg, Magnesium Sulfate IVPB 4g over 2 hours. Nursing Assessment Nursing Assessment Appetite:: Fair Diarrhea:: Yes Constipation:: No Existing Patients: Any falls since your last visit? : No Fatigue:: Constant Mouth Sores:: No Nausea/Vomiting:: No Pain:: No Peripheral Neuropathy: : No Pt states has potential to be ? : N/A Shortness of Breath?: No Lungs auscultated PRN:: No Pt is on oxygen? : No Respiratory Effort Characteristics: Dyspnea exertion Skin Condition/Temp: Warm, Dry Oral Mucosa Grade: Normal (0) Abdomen: Soft Swelling:: No Additional Notes: Pt flushed with NS and heparin after mag sulfate infusion. Port de-accessed, bandaid in place. 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 Allow to stand 15 to 30 mins prior to useIndications:Bone metastasis,Neuro-endocri ne carcinoma (HCC) Given 10/16/2021 12:28 PM CDT 120 mg Right Lower Abdomen heparin 100 unit/mL injection 500 Units 500 Units (5 mL), IV flush, Once as needed, line care, Starting on Sat10/16/21 at 1151, Flush when all medication administered and labs completed for the day.Indications:Hypomagn esemia,Neuro-endocrine carcinoma (HCC) Given 10/16/2021 2:15 PM CDT 500 Units magnesium sulfate 4 g in sodium chloride 0.9% 100 mL IVPB 4 g, intravenous, at 72 mL/hr, Administer over 90 Minutes, Once as needed, If magnesium level is 1.2 and below give 4 grams (32 mEq), Starting on Sat10/16/21 at 1151, If magnesium level is 1.2 and below: Administer magnesium 4 grams (32 mEq) IVPB over 90 minutes.Indications:Hypo magnesemia,Neuro-endocri ne carcinoma (HCC) New Bag 10/16/2021 12:29 PM CDT 4 g 72 mL/hr octreotide LAR (SandoSTATIN LAR) extended release intramuscular injection 30 mg 30 mg, intramuscular, Once, On 10/16/21 at 1230, For 1 dose, Refrigerate. For IM intragluteal administration only- alternate gluteal sites. Shake.Indications:Malign ant neoplasm metastatic to liver (HCC),Neuroendocrine carcinoma (HCC) Given 10/16/2021 12:12 PM CDT 30 mg Right Dorsogluteal/But tock sodium chloride 0.9% flush 10 mL 10 mL, intravenous, As needed, line care, Starting on Sat10/16/21 at 1151, Flush pre and post IV catheter use.Indications:Hypomagn esemia,Neuro-endocrine carcinoma (HCC) Given 10/16/2021 2:15 PM CDT 10 mL documented in this encounter Orders Nursing Count Last Ordered Date First Orde red Date ONCBCN NURSING COMMUNICATION [id number] 1 0 10/16/2021 PHYSICIAN COMMUNICATION ORDER 1 10/16/2021 Appointment Requests Count Last Ordered Date Fi rst Ordered Date ONCBCN INJECTION APPOINTMENT REQUEST 1 10/06 documented in this encounter Care Teams Salicylic Acid Blender Relationship Specialty Start Date End Date Julio César Briseno MD PCP - General 10/01/16 Eren Cr MD Referring Physician Medical Oncology 11/25/18 Yohana Bowen MD Radiation Oncologist Radiation Oncology 11/25/18 Sabrina Willard NP [address] [place] [address] Nurse Practitioner Medical Oncology 08/17/20 11/26/21 documented as of this encounter
--- OUTSIDE RECORDS SUMMARY | 2024-06-25 22:23 | XMS_ITS | Encounter Summary ---
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 Eren Cr MD [address] [facility] [address] [place] [address] Phone: tel: fax: [facility] [address] [facility] 7th [place] [address] Phone: tel: Referral ID Status Reason Start Date Expiration Date Visits Re quested Visits Authorized [id number] Closed 06/21/2021 06/26/2024 1 99 Encounter Details Date Type Department Care Team (Late st Contact Info) Description 11/13/2021 1:00 PM CDT Lab [facility] [address] 7th [place] [address] [place] [address] Neuro-endocrine carcinoma (CMS/HCC) (HCC) (Primary Dx); Hypophosphatemia [...] on file 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 Gender Identity Not on file Sexual Orientation [...] needed, line care, Starting on Sat11/13/21 at 1312, Flush with Heparin immediately prior to de-accessing port.Indications:Hypophosphatem ia Given 11/13/2021 1:14 PM CDT 500 Units sodium chloride 0.9% flush 10 mL 10 mL, intravenous, As needed, line care, Starting on Sat11/13/21 at 1312, Flush pre and post IV catheter use.Indications:Hypophosphatemi a Given 11/13/2021 1:12 PM CDT 10 mL Given 11/13/2021 1:10 PM CDT 10 mL documented in this encounter Orders Medications Ordered That Brett ht Not Have Been Administered Count Last Ordered Date First Ordered Date sodium chloride 0.45% bolus 90 mL 1 022 sodium chloride 0.9% bolus 90 mL 1 11/14/19 22 Appointment Requests Count Last Ordered Date Fi rst Ordered Date ONCBCN LAB APPOINTMENT 1 11/13/2021 documented in this encounter Care Teams Lamination Inspector Relationship Specialty Start Date End Date Julio César Briseno MD PCP - General 10/01/16 Eren Cr MD Referring Physician Medical Oncology 11/25/18 Yohana Bowen MD Radiation Oncologist Radiation Oncology 11/25/18 Sabrina Willard NP [address] [place] [address] Nurse Practitioner Medical Oncology 08/17/20 11/26/21 documented as of this encounter
--- OUTSIDE RECORDS SUMMARY | 2024-06-25 22:23 | XMS_ITS | Encounter Summary ---
Author Organization [facility] Address [address] [place] [address] Phone Care Team Providers Care Disability Services Coordinator Name Role Phone Julio César Briseno MD Primary Care Provider Eren Cr MD Unavailable [phone] Yohana Bowen MD Unavailable Sabrina Willard NP Unavailable [phone] Encounter Details Date Type Department Care Team (Late st Contact Info) Description 10/19/2021 Orders Only [facility] Oncology [address] [place] [address] Claude Browning MD [address] 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 Gender Identity Not on file Sexual Orientation Straight 02/19/2021 9: 29 AM CDT Occupation Industry Job Start Date Job End Date retired Not on file Not on file Not on file documented as of this encounter Plan of Treatment Not on file documented as of this encounter Visit Diagnoses Not on filedocumented in this encounter Care Teams Disability Services Coordinator Relationship Specialty Start Date End Date Julio César Briseno MD PCP - General 10/01/16 Eren Cr MD Referring Physician Medical Oncology 11/25/18 Yohana Bowen MD Radiation Oncologist Radiation Oncology 11/25/18 Sabrina Willard NP [address] [place] [address] Nurse Practitioner Medical Oncology 08/17/20 11/26/21 documented as of this encounter
--- OUTSIDE RECORDS SUMMARY | 2024-06-25 22:23 | XMS_ITS | Encounter Summary ---
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) Procedures IL DENOSUMAB INJECTION DENOSUMAB (XGEVA) Eren Cr MD [address] [place] [address] Phone: tel: fax: [facility] at [facility] [address] [facility] 7th [place] [address] Phone: tel: Referral ID Status Reason Start Date Expiration Date V isits Requested Visits Authorized [id number] Authorized 03/02/2019 10/06/2024 1 60 Encounter Details Date Type Department Care Team (Latest Contact Info) Description 10/13/2021 7:25 AM CDT - 10/13/2021 9:24 AM CDT Hospital Encounter [facility] ([facility]) [address] [place] [address] Eren Cr MD [address] [facility] [address] [place] [address] Neuroendocrine carcinoma (CMS/HCC) (HCC) (Primary Dx) Discharge [...] on file 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 Gender Identity Not on file Sexual Orientation Straight 02/19/2021 9: 29 AM CDT Occupation Industry Job Start Date Job End Date retired Not on file Not on file Not on file documented as of this encounter Last Filed Vital Signs Vital Sign Reading Time Taken Comments Blood Pressure 159/70 10/13/2021 7:34 AM CDT Pulse 63 10/13/2021 7:34 AM CDT Temperature 36.5 ??C (97.7 ??F) 10/13/2021 7:34 AM CD T Respiratory Rate 20 10/13/2021 7:34 AM CDT Oxygen Saturation 100% 10/13/2021 7:34 AM CDT Inhaled Oxygen Concentration - - Weight - - Height - - Body Mass Index - - documented in this encounter Discharge Diagnoses Diagnosis Other malignant neuroendocrine tumors (HCC) - OTHER MALIGNANT NEUROENDOCRINE TUMORS documented in this encounter Medications at Time [...] tablet (20 mg total) by mouth nightly al & mag hydroxide with simethicone-diphen hydramine-lidocain e (MAGIC MOUTHWASH) suspension 7-4-9Ititnpdylzy:N euro-endocrine carcinoma (HCC),Oral mucositis Swish and swallow 10 mL every 4 (four) hours as needed (oral mucositis) 240 mL 2 09/19/2021 2 albuterol HFA (PROVENTIL HFA,VENTOLIN HFA,PROAIR HFA) 90 mcg/actuation inhaler INHALE 1 PUFF BY MOUTH EVERY 4 HOURS 03/24/2021 2 ascorbic acid, vitamin C, 500 mg capsuleIndications :supplement 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 07/04/2016 4 cholecalciferol (VITAMIN D-3) 2,000 unit capsule Take 1 capsule (2,000 Units total) by mouth daily 30 capsule 2 04/25/2019 3 cholestyramine (QUESTRAN) 4 gram packet Take 1 packet by mouth 3 (three) times a day with meals 270 packet 3 09/04/2019 2 clotrimazole-betam ethasone (LOTRISONE) cream Apply 1 Application topically daily as needed (rash) 4 coenzyme U79-fzolrcz E 100-5 mg-unit capsuleIndications :supplement 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 02/13/21 RW 2 fluticasone propionate (FLONASE) 50 mcg/actuation nasal sprayIndications:A llergic Rhinitis Administer 2 sprays into each nostril daily as needed for rhinitis or allergies 4 gabapentin (NEURONTIN) 600 mg tablet Take 1 tablet (600 mg total) by mouth 3 (three) times a day 90 tablet 11 09/01/2020 2 INV[facility] cabozantinib/place mariela (2018-02-122/A0216 02) 20 mg tabletIndications: cancer study Take 1 tablet (20 mg total) by mouth nightly Take on an empty stomach (no food for 2 hours before and 1 hour after each dose).?? Avoid [place]'s Wort, grapefruit products and [place] oranges while on treatment. placed on hold 09/26/22 for covid 01/29/2022 4 LORazepam (ATIVAN) 0.5 mg tabletIndications: MRI scan Take 1 tablet 1 hour prior to MRI exam, may repeat dose if needed 15 minutes prior to MRI 2 tablet 08/21/2021 4 montelukast (SINGULAIR) 10 mg tablet Take 1 tablet (10 mg total) by mouth as needed (allergies) 4 octreotide (SandoSTATIN) 50 mcg/mL (1 mL) syringe every 30 (thirty) days 04/09/2016 2 olmesartan-hydroch lorothiazide (BENICAR HCT) 20-12.5 mg per [...] for 14 days 28 tablet 04/24/2019 2 potassium, sodium phosphates (PHOS-NAK) 280-160-250 mg powder in packet Take 1 packet by mouth 4 (four) times a day 120 packet 1 05/24/2021 2 triamcinolone (KENALOG) 0.1 % ointment Apply to itchy rash on hands twice daily until improved 454 g 1 05/06/2020 4 documented as of this encounter Discharge Disposition Disposition Code Departure Means Destination Discharge to home or self care documented in this encounter Nursing Notes * Lynsey Renee RN - 10/13/2021 9:22 AM CDT Patient arrived to [facility] for IVF. Plan of care reviewed with patient and she verbalized understanding. PAC accessed. IVF infused and tolerated well. PAC left accessed for radiology study. Patient verbalized understanding of d/c plan of care. Patient d/c home in stable condition. documented in this [...] Once as needed, line care, Starting on Sat10/13/21 at 0728, Flush when all medication administered and labs completed for the day.Indications:Neuroendocr ine carcinoma (HCC) sodium chloride 0.9% bolus 1,000 mL 1,000 mL, intravenous, at 666.7 mL/hr, Administer over 90 Minutes, Once, On Sat10/13/21 at 0800, For 1 doseIndications:Neuroendocr ine carcinoma (HCC) New Bag 10/13/2021 7:48 AM CDT 1,000 mL 666.7 mL/hr sodium chloride 0.9% flush 10 mL 10 mL, intravenous, As needed, line care, Starting on Sat10/13/21 at 0728, Flush pre and post IV catheter use.Indications:Neuroendocr ine carcinoma (HCC) sodium chloride 0.9% flush 10 mL 10 mL, intravenous, As needed, line care, Starting on Sat10/13/21 at 0728, Flush pre and post IV catheter use.Indications:Neuroendocr ine carcinoma (HCC) documented in this encounter Active and Recently Administered Medications Times are shown in CDT. Scheduled Medication Order 10/11/2021 10/12/2021 10/13/2021 sodium chloride 0.9% bolus 1,000 mL (COMPLETED) 1,000 mL, intravenous, at 666.7 mL/hr, Administer over 90 Minutes, Once, On Sat10/13/21 at 0800, For 1 dose 0748 (New Bag - Prov ider: Lynsey Renee RN)0915 (Stopped - Provider: Lynsey Renee RN) PRN Medication Order 10/11/2021 10/12/2021 10/13/2021 heparin 100 unit/mL injection 500 Units 500 Units (5 mL), IV flush, Once as needed, line care, Starting on Sat10/13/21 at 0728, Flush when all medication administered and labs completed for the day. sodium chloride 0.9% flush 10 mL 10 mL, intravenous, As needed, line care, Starting on Sat10/13/21 at 0728, Flush pre and post IV catheter use. sodium chloride 0.9% flush 10 mL 10 mL, intravenous, As needed, line care, Starting on Sat10/13/21 at 0728, Flush pre and post IV catheter use. documented in this encounter Orders Medications Ordered That Brett ht Not Have Been Administered Count Last Ordered Date First Ordered Date heparin 100 unit/mL injection 500 Units 1 0 10/13/2021 sodium chloride 0.9% bolus 1,000 mL 1 10/13 sodium chloride 0.9% flush 10 mL 2 10/14/19 22 Appointment Requests Count Last Ordered Date Fi rst Ordered Date ONCBCN INFUSION APPT REQUEST 1 10/13/2021 documented in this encounter Care Teams Plant Worker Relationship Specialty Start Date End Date Julio César Briseno MD PCP - General 10/01/16 Eren Cr MD Referring Physician Medical Oncology 11/25/18 Yohana Bowen MD Radiation Oncologist Radiation Oncology 11/25/18 Sabrina Willard NP [address] [place] [address] Nurse Practitioner Medical Oncology 08/17/20 11/26/21 documented as of this encounter
--- OUTSIDE RECORDS SUMMARY | 2024-06-25 22:23 | XMS_ITS | Encounter Summary ---
Author Organization [facility] Address [address] [place] [address] Phone Care Team Providers Care Camp Tender Name Role Phone Julio César Briseno MD Primary Care Provider [phone] Eren Cr MD Unavailable [phone] Yohana Bowen MD Unavailable Sabrina Willard NP Unavailable [phone] 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 [address] [address] Phone: tel: fax: Referral ID Status Reason Start Date Expiration Date V isits Requested Visits Authorized [id number] Authorized 11/28/2017 02/05/2025 1 150 Encounter Details Date Type Department Care Team (Late st Contact Info) Description 10/16/2021 10:30 AM CDT Office Visit [facility] Oncology [address] [facility] [address] 7th [place] [address] [place] [address] Joelle Eugene NP [address] [place] [address] Neuro-endocrine carcinoma (CMS/HCC) (HCC) (Primary Dx); Bone metastasis (CMS/HCC) (HCC); Neuroendocrine carcinoma (CMS/HCC) (HCC); Malignant [...] file Legal 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 Gender Identity Not on file Sexual Orientation Straight 02/19/2021 9: 29 AM CDT Occupation Industry Job Start Date Job End Date retired Not on file Not on file Not on file documented as of this encounter Last Filed Vital Signs Vital Sign Reading Time Taken Comments Blood Pressure 142/76 10/16/2021 10:19 AM CDT Pulse 65 10/16/2021 10:19 AM CDT Temperature 35.8 ??C (96.5 ??F) 10/16/2021 1 0:19 AM CDT Respiratory Rate 20 10/16/2021 10:1 9 AM CDT Oxygen Saturation 99% 10/16/2021 10: 19 AM CDT Inhaled Oxygen Concentration - - Weight 77.5 kg (170 lb 12.8 oz) 022 10:19 AM CDT Height - - Body Mass Index 31.15 07/17/2021 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 Greyson Reeves. Biopsy [...] is accompanied by her daughter today. She reports compliance on the study drug, 60 mg once daily. She continues to get IV fluids every few weeks PRN. She reports an increase in energy levels in the last two weeks. Her ostomy output is normal and consistent in nature. However, the bag keeps coming undone from her skin, this is aggravating for her and causing irritation to the surrounding skin. She is scheduled to see Dr. Reeves on to further evaluate. Occasionally, she will have a nose bleed in the morning after blowing her nose too hard. CT chest/abdomen/pelvis from 10/13/21 demonstrated a response to treatment. Activity, appetite levels are been stable. Denies new lumps or bumps, fevers, chills, night sweats,SOB, cough, chest pain, constipation. Denies vision changes, headaches, numbness, tinglining, or pain. Denies rashes or bruising ALLERGIES: Allergies Allergen Reactions ??? Morphine Blisters ??? Ezetimibe-Simvastatin Muscle pain and Unknown Muscle weakness ??? Ramipril Cough REVIEW OF SYSTEMS: A complete review of systems was performed and positive and pertinent negative responses are documented in the history of present illness All other systems were negative. PHYSICAL EXAM: ECOG PS: 1 VITALS: BP 142/76 (BP Location: Left arm) Pulse 65 Temp (!) 35.8 ??C (96.5 ??F) (Transdermal) Resp 20 Wt 77.5 kg (170 lb 12.8 oz) SpO2 99% BMI 31.15 kg/m?? GEN: Calm, conversant, well-appearing female in [...] well healed abdominal surgical scars. Ostomy in LLQ. EXT: No LE edema, warm and well-perfused SKIN: No rashes over exposed skin NEURO: A&Ox4, inspector grossly intact by conversation, moving all extremities well, no focal deficits appreciated PSYCH: Mood euthymic, affect appropriate and congruent, speech clear and goal-directed LABORATORY: All laboratories personally reviewed selected values included below. Hematology Lab History Some values may be hidden. Unless noted otherwise, only the newest values recorded on each date aredisplayed. Labs - Hematology Latest Ref Range 08/21/21 09/04/21 09/18/21 10/16/21 WBC 3.8 - 9.8 K/cumm 3.1 (A) 4.0 3.0 (A) 2.9 (A) Total Hb, POC 12.1 - 15.1 g/dL 15.5 (A) 15.5 (A) 13.1 10.1 (A) Hct 36.1 - 44.3 % 43.2 44.2 36.9 28.8 (A) Plt 140 - 440 K/cumm 99 (A) 101 (A) 71 (A) 78 (A) Neutrophil abs 1.8 - 6.6 K/cumm 2.3 2.5 1.8 1.8 Lymphocytes, abs 1.2 - 3.3 K/cumm 0.6 (A) 1.0 (A) 0.7 (A) 0.4 (A) (A) Abnormal value Comments are available for some flowsheets but are not being displayed. Chem/LFT Lab History Some values may be hidden. Unless noted otherwise, only the newest values recorded on each date aredisplayed. Labs-Chem/LFT Latest Ref Range 09/04/21 09/18/21 10/13/21 10/16/21 Sodium 135 - 145 mmol/L 135 137 142 Creatinine 0.60 - 1.10 mg/dL 1.55 (A) 1.55 (A) 1.07 Bilirubin, total 0.1 - 1.2 mg/dL 1.1 0.9 0.8 AST 10 - 45 Units/L 60 (A) 54 (A) 35 ALT 7 - 45 Units/L 45 39 25 CrCl- Actual Body Weight (Cockcroft-Gault) 39.6 39.1 68.1 58.1 (A) Abnormal value Comments are available for some flowsheets but are not being displayed. Tumor Marker History Some values may be hidden. Unless noted otherwise, only the newest values recorded on each date aredisplayed. Tumor Markers Latest Ref Range 12/07/17/21 08/21/21 09/18/21 Chromogranin A <93 ng/mL 1364 (A) 1727 (A) 877 (A) 912 (A) (A) Abnormal value Comments are available for some flowsheets but are not being displayed. RADIOGRAPHIC/DIAGNOSTIC REVIEW: CT chest abdomen pelvis with contrast Result Date: 10/13/2021 1. Decreased size and enhancement of the bilobar hepatic metastatic disease reflecting response to treatment. 2. Stable peritoneal/mesenteric disease, vaginal cuff deposit and right periaortic retroperitoneal lymphadenopathy. 3. No evidence of metastatic disease to the chest. 4. Unchanged urethral diverticulum with stones. Electronically signed by: Ashley Anand M.D. ASSESSMENT AND PLAN: Ms. La Chung is a 70 y.o. 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 1. Metastatic neuroendocrine tumor with metastases - Continues on Octreotide - CT 10/13/21 with response to treatment - Continue on the CABINET trial: Cabozantinib/placebo - Grade 1 platelet count- 78,000. Bleeding precautions discussed - Xgeva today 2. Diarrhea - stable ostomy output - recommend calling the wound/osomty team- she has this number from before, and they can assist with finding supplies to prevent ostomy bag from falling off. 3. Hypomagnesemia - magnesium 1.0 today, grade 1 - will give 4g of magnesium IV today 4. TSH elevated - 5.45- grade 1 - reflex to T4 0.89 - she is asymptomatic - in collaboration with Dr. Browning we will monitor and recheck in 4 weeks Will return to clinic on 11/13/2021 for CABINET study participation.? All of??her and her 's??questions were answered to their satisfaction and they verbalized understanding. ?? Kedar Eugene RN, [employer] Nurse Practitioner, Medical Oncology Cosigned by Eren Cr Jr., MD at 10/26/2021 3:07 PM CDT documented in this encounter Plan of Treatment Not on file documented as of this encounter Results * Protein / creatinine ratio, urine, random (11/13/2021 1:30 PM CDT) Pathologist [facility] Protein, ur, quant 71.3 mg/dL [facility] Comment: Interpretive Data No reference range established. Current interpretive data was last revised 2018. Creatinine Ur 519.7 mg/dL [facility] Comment: Interpretive Data No reference range established. Current interpretive data was last revised 2018. Protein/creatinin e ratio 137.2 0.0 - 180.0 mg/g CR [facility] Urine 11/13/2021 1:30 PM CDT 11/13/2021 1:43 PM CDT Eren Cr MD LAB URINE ORDERABLES Final Re sult Performing Organization Address [facility] Co de Phone Number [facility] [place] [address] * (ABNORMAL) TSH reflex to free T4 (11/13/2021 1:05 PM CDT) [facility] TSH 16.00(H) 0.30 - 4.20 mcIUnit/mL [facility] Blood 11/13/2021 1:05 PM CDT 11/13/2021 1:57 PM CDT Eren Cr MD LAB BLOOD ORDERABLES Final Re sult Performing Organization Address City/[facility]/ZIP Co de Phone Number [facility] Department [place] [address] * (ABNORMAL) Chromogranin A (11/13/2021 1:05 PM CDT) [facility] Chromogranin A 653(H) <93 ng/mL [facility] Comment: Impaired renal or hepatic function or treatment with proton pump inhibitors may result in artifactual elevations of Chromogranin A. ADDITIONAL INFORMATION This test was developed and its performance characteristics determined by [facility] in a manner consistent with CLIA [...] a homogeneous time-resolved immunofluorescent assay manufactured by [employer] and performed on the [employer]or Compact Plus. ? Values obtained with different assay methods or kits may be different and cannot be used interchangeably. ? Test results cannot be interpreted as absolute evidence for the presence or absence of malignant disease. Test Performed by: [facility] [address] [place] [address] Cooker Sulfate: Immanuel Novak M.D. Ph.D.; CLIA# [id number] Blood 11/13/2021 1:05 PM CDT 11/13/2021 5:06 PM CDT Eren Cr MD LAB BLOOD ORDERABLES Final Re sult [facility] [place] [address] * (ABNORMAL) Comprehensive metabolic panel (11/13/2021 1:05 PM CDT) Sodium 142 135 - 145 mmol/L [facility] Comment:Testing performed by : [facility], [address] [place] [phone] Potassium, pl 3.6 3.3 - 4.9 mmol/L [facility] Comment:Testing performed by : [facility], [address] [place] [phone] Chloride 105 97 - 110 mmol/L [facility] Comment:Testing performed by : [facility], [address] [place] [phone] CO2 27 22 - 32 mmol/L [facility] Comment:Testing performed by : [facility], [address] [place] [phone] Anion gap 11 2 - 15 mmol/L [facility] Comment:Testing performed by : [facility], [address] [place] [phone] BUN 15 8 - 25 mg/dL [facility] Comment:Testing performed by : [facility], [address] [place] [phone] Creatinine 1.25(H) 0.60 - 1.10 mg/dL [facility] Comment:Testing performed by : [facility], [address] [place] [phone] Glucose 141 70 - 199 mg/dL [facility] Comment: [...] was last revised 2017. Testing performed by: [facility], [address] [place] [phone] Calcium 10.6(H) 8.5 - 10.3 mg/dL [facility] Comment:Testing performed by : [facility], [address] [place] [phone] Bilirubin, total 0.7 0.1 - 1.2 mg/dL [facility] Comment:Testing performed by : [facility], [address] [place] [phone] Protein, pl 6.2(L) 6.5 - 8.5 g/dL [facility] Comment:Testing performed by : [facility], [address] [place] [phone] Albumin 4.0 3.5 - 5.0 g/dL [facility] Comment:Testing performed by : [facility], [address] [place] [phone] Alk phos 82 40 - 130 Units/L [facility] Comment:Testing performed by : [facility], [address] [place] [phone] ALT 25 7 - 45 Units/L [facility] Comment:Testing performed by : [facility], [address] [place] [phone] AST 38 10 - 45 Units/L [facility] Comment:Testing performed by : [facility], [address] [place] [phone] Blood 11/13/2021 1:05 PM CDT 11/13/2021 1:09 PM CDT Eren Cr MD LAB BLOOD ORDERABLES Final Re sult [facility] [place] [address] * (ABNORMAL) CBC with auto differential (11/13/2021 1:05 PM CDT) WBC 4.2 3.8 - 9.8 K/cumm [facility] Comment:Testing performed by : [facility], [address] [place] [phone] Hgb 11.1(L) 12.1 - 15.1 g/dL [facility] Comment:Testing performed by : [facility], [address] [place] [phone] Hct 32.0(L) 36.1 - 44.3 % [facility] Comment:Testing performed by : [facility], [address] [place] [phone] Plt 110(L) 140 - 440 K/cumm [facility] Comment:Testing performed by : [facility], [address] [place] [phone] MPV 9.1 6.8 - 10.4 fL [facility] Comment:Testing performed by : [facility], [address] [place] [phone] RBC 3.15(L) 3.90 - 5.00 M/cumm [facility] Comment:Testing performed by : [facility], [address] [place] [phone] MCV 101.6(H) 80.0 - 97.6 fL [facility] Comment:Testing performed by : [facility], [address] [place] [phone] MCH 35.1(H) 26.7 - 33.7 pg [facility] Comment:Testing performed by : [facility], [address] [place] [phone] MCHC 34.6 32.7 - 35.5 g/dL [facility] Comment:Testing performed by : [facility], [address] [place] [phone] RDW CV 21.1(H) 11.8 - 14.6 % [facility] Comment:Testing performed by : [facility], [address] [place] [phone] NRBC abs NA 0.00 - 0.01 K/cumm [facility] Comment:Testing performed by : [facility], [address] [place] [phone] Blood 11/13/2021 1:05 PM CDT 11/13/2021 1:09 PM CDT Eren Cr MD LAB BLOOD ORDERABLES Final Re sult [facility] [place] [address] * (ABNORMAL) Vitamin D 25 hydroxy (11/13/2021 1:05 PM CDT) Vitamin D 25-OH 22(L) 30 - 80 ng/mL [facility] Blood 11/13/2021 1:05 PM CDT 11/13/2021 1:57 PM CDT Eren Cr MD LAB BLOOD ORDERABLES Final Re sult Performing Organization Address [facility] Co de Phone Number [facility] Department [place] [address] * Phosphorus (11/13/2021 1:05 PM CDT) Phosphorus, pl 2.5 2.3 - 4.5 mg/dL [facility] Comment:Testing performed by : [facility], [address] [place] [phone] Blood 11/13/2021 1:05 PM CDT 11/13/2021 1:09 PM CDT Eren Cr MD LAB BLOOD ORDERABLES Final Re sult Performing Organization Address [facility] de Phone Number [facility] [place] [address] * (ABNORMAL) Lipid panel (11/13/2021 1:05 PM CDT) Pathologist [facility] Cholesterol 177 30 - 199 mg/dL [facility] Comment: Interpretive Data [...] Data was last revised on 2018. Triglycerides 174(H) <=149 mg/dL [facility] Comment: Interpretive Data [...] revised on 2018. HDL 55 >=40 mg/dL [facility] Comment: Interpretive Data Ages [...] was last revised on 2018. LDL, calculated 87 <=129 mg/dL [facility] Comment: Interpretive [...] was last revised on 2018. Non-HDL Cholesterol 122 mg/dL [facility] Comment: Interpretive Data [...] revised on 2018. Chol/HDL ratio 3 [facility] Blood 11/13/2021 1:05 PM CDT 11/13/2021 1:57 PM CDT us Eren Cr MD LAB BLOOD ORDERABLES Final Re sult [facility] [place] [address] * (ABNORMAL) Magnesium (11/13/2021 1:05 PM CDT) Magnesium 1.1(L) 1.4 - 2.5 mg/dL [facility] Comment:Testing performed by : [facility], [address] [place] [phone] Blood 11/13/2021 1:05 PM CDT 11/13/2021 1:09 PM CDT Eren Cr MD LAB BLOOD ORDERABLES Final Re sult 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) documented in this encounter Orders Lab Orders Without Results Count Last Ordered D ate First Ordered Date T4, FREE 1 10/16/2021 Appointment Requests Count Last Ordered Date Fi rst Ordered Date ONCBCN CLINIC APPOINTMENT REQUEST 2 022 10/16/2021 ONCBCN INJECTION APPOINTMENT REQUEST 1 03/2022 ONCBCN LAB APPOINTMENT 1 11/13/2021 documented in this encounter Care Teams Camp Tender Relationship Specialty Start Date End Date Julio César Briseno MD PCP - General 10/01/16 Eren Cr MD Referring Physician Medical Oncology 11/25/18 Yohana Bowen MD Radiation Oncologist Radiation Oncology 11/25/18 Sabrina Willard NP [address] [place] [address] Nurse Practitioner Medical Oncology 08/17/20 11/26/21 documented as of this encounter
--- OUTSIDE RECORDS SUMMARY | 2024-06-25 22:23 | XMS_ITS | Encounter Summary ---
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) Bone metastasis Procedures CT chest abdomen pelvis with contrast Eren Cr MD [address] [place] [address] Phone: tel: fax: [address] [address] Referral ID Status Reason Start Date Expiration Date Visits Re quested Visits Authorized [id number] Closed 09/18/2021 10/18/2022 1 1 Reason for Visit * MRI/CAT/PET Scan (Routine) - Closed Specialty Diagnoses / Procedures Referred By Evelyne Referred To Contact Radiology Diagnoses 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 [address] [place] [address] Phone: tel: fax: [address] [place] [address] Referral ID Status Reason Start Date Expiration Date Visits Re quested Visits Authorized [id number] Closed 09/18/2021 10/18/2022 1 1 Encounter Details Date Type Department Care Team (Latest Contact Info) Description 10/13/2021 9:20 AM CDT - 10/13/2021 11:59 PM CDT Hospital Encounter [facility] [address] [place] [address] Eren Cr MD [address] [facility] [address] [place] [address] Neuro-endocrine carcinoma (CMS/HCC) (HCC); Malignant neoplasm metastatic [...] on file Legal Sex Female 2:41 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 Gender Identity Not on file Sexual [...] with simethicone-diphen hydramine-lidocain e (MAGIC MOUTHWASH) suspension [id number]:N euro-endocrine carcinoma (HCC),Oral mucositis Swish and swallow 10 mL every 4 (four) hours as needed (oral mucositis) 240 mL 2 09/19/2021 2 albuterol HFA (PROVENTIL HFA,VENTOLIN HFA,PROAIR HFA) 90 mcg/actuation inhaler INHALE 1 PUFF BY MOUTH EVERY 4 HOURS 03/24/2021 2 ascorbic acid, vitamin C, 500 mg capsuleIndications :supplement Take 1 tablet by mouth healthcare analyst before breakfast 07/04/2016 4 cholecalciferol (VITAMIN D-3) 2,000 unit capsule Take 1 capsule (2,000 Units total) by mouth daily 30 capsule 2 04/25/2019 3 cholestyramine (QUESTRAN) 4 gram packet Take 1 packet by mouth 3 (three) times a day with meals 270 packet 3 09/04/2019 2 clotrimazole-betam ethasone (LOTRISONE) cream Apply 1 Application topically daily as needed (rash) 4 coenzyme [id number] 100-5 mg-unit capsuleIndications :supplement Take 1 tablet by mouth healthcare analyst before breakfast 4 denosumab (XGEVA) 120 mg/1.7 [...] tablet 11 09/01/2020 2 [id number] cabozantinib/place mariela (2018-08-122/A0216 02) 20 mg tabletIndications: cancer study Take 1 tablet (20 mg total) by mouth nightly Take on an empty stomach (no food for 2 hours before and 1 hour after each dose).?? Avoid Jas's Wort, grapefruit products and [place] oranges while on treatment. placed on hold [...] CONTRAST Schedule Routine, Read Routine (OP Routine) 10/13/2021 10:13 AM CDT Neuro-endocrine carcinoma (CMS/HCC) (HCC) 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) Bone metastasis (CMS/HCC) (HCC) POCT CREATININE - DEVICE Routine 10/13/2021 9:54 AM CDT documented in this encounter Results * CT chest abdomen pelvis with contrast (10/13/2021 10:13 AM CDT) Anatomical Region Laterality Modality Body N/A Computed Tomogra phy 10/13/2021 10:4 2 AM CDT Impressions 10/13/2021 10:42 AM CDT 1. Decreased size and enhancement of the bilobar hepatic metastatic disease reflecting response to treatment. 2. Stable peritoneal/mesenteric disease, vaginal cuff deposit and right periaortic retroperitoneal lymphadenopathy. 3. No evidence of metastatic disease to the chest. 4. Unchanged urethral diverticulum with stones. Electronically signed by: Ashley Anand M.D. 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 TECHNIQUE: ??Transaxial computed tomographic images of the chest, abdomen, and pelvis ??were obtained with intravenous contrast according to the standard protocol after the uneventful administration of 95 mL Opti-Ray 350 intravenous contrast. COMPARISON: CT chest, abdomen, and pelvis from 06/22/2021. 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 A right upper chest venous access port is seen with a right internal jugular approach central venous catheter tip in the right atrium. The hepatic and portal veins are patent. ?? Chest: The heart size is enlarged. There is no pericardial effusion. No mediastinal, hilar, axillary, or supraclavicular lymphadenopathy is seen. Few subcentimeter right paratracheal lymph nodes are unchanged. The esophagus is nondilated. There is a tiny hiatal hernia. The imaged thyroid gland enhances homogeneously. No focal lung consolidation is seen. There is no pleural effusion or pneumothorax. The trachea is midline and patent. No suspicious pulmonary nodule or mass is identified. Abdomen/Pelvis: Bilobar hepatic metastatic disease is redemonstrated, with decrease in size and enhancement of the hepatic lesions, increased in conspicuity for detection. For reference the largest lesion is present within hepatic segment 8/4 A along the middle hepatic vein, measuring 2.3 x 2 cm, previously 3.2 x 2.2 cm (image 120 series 2). A lesion within hepatic segment 6 now measures 1.9 x 2 cm, previously 3.4 x 3.7 cm. Additional lesions have also demonstrated a similar response. No definite new lesion is seen. Mild biliary dilation is related to reservoir effect. The gallbladder is surgically absent. The spleen demonstrates tiny hypoattenuating foci likely reflecting cysts or lymphangiomas, unchanged. Both adrenal glands and pancreas are normal. A simple cyst in the right kidney is unchanged. There is no hydronephrosis. The stomach is decompressed. The small and large bowel loops are nondilated. A 5.1 cm diverticulum arises from the third duodenum, unchanged. Postsurgical changes of right hemicolectomy and ileocolic anastomosis are seen. There is a left lower quadrant colostomy with a mucous fistula. Gas locules along the colonic wall near the ileocolic anastomosis likely reflect pseudopneumatosis (image 175 series 2). There is no free air or portal venous gas. The urinary bladder is decompressed. The uterus is surgically absent. Enhancing soft tissue nodule at the right aspect of the vaginal cuff measures 1.9 x 1.8 cm, previously 1.8 x 1.8 cm, unchanged (image 260 series 2). A soft tissue nodule with calcifications in the left lower quadrant that tethers adjacent small bowel loops and colon (image 235 series 2) is also unchanged measuring 1.1 x 1.4 cm. Soft tissue nodularity in the right anterior peritoneum with serosal involvement of loops of small bowel (image 205 series 2) is unchanged. No new site of disease is identified. Enlarged right periaortic lymph nodes measuring up to 10 mm in short axis (image 189 series 2) are unchanged. Thickening along the hepatic dome best seen on the coronal reformatted images is unchanged measuring up to 6 mm likely reflecting serosal deposits over the liver. A urethral diverticulum is present with stones. Bone windows show no suspicious lytic or blastic lesions. 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 TECHNIQUE: Transaxial computed tomographic images of the chest, abdomen, and pelvis were obtained with intravenous contrast according to the standard protocol after the uneventful administration of 95 mL Opti-Ray 350 intravenous contrast. COMPARISON: CT chest, abdomen, and pelvis from 06/22/2021. 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 A right upper chest venous access port is seen with a right internal jugular approach central venous catheter tip in the right atrium. The hepatic and portal veins are patent. Chest: The heart size is enlarged. There is no pericardial effusion. No mediastinal, hilar, axillary, or supraclavicular lymphadenopathy is seen. Few subcentimeter right paratracheal lymph nodes are unchanged. The esophagus is nondilated. There is a tiny hiatal hernia. The imaged thyroid gland enhances homogeneously. No focal lung consolidation is seen. There is no pleural effusion or pneumothorax. The trachea is midline and patent. No suspicious pulmonary nodule or mass is identified. Abdomen/Pelvis: Bilobar hepatic metastatic disease is redemonstrated, with decrease in size and enhancement of the hepatic lesions, increased in conspicuity for detection. For reference the largest lesion is present within hepatic segment 8/4 A along the middle hepatic vein, measuring 2.3 x 2 cm, previously 3.2 x 2.2 cm (image 120 series 2). A lesion within hepatic segment 6 now measures 1.9 x 2 cm, previously 3.4 x 3.7 cm. Additional lesions have also demonstrated a similar response. No definite new lesion is seen. Mild biliary dilation is related to reservoir effect. The gallbladder is surgically absent. The spleen demonstrates tiny hypoattenuating foci likely reflecting cysts or lymphangiomas, unchanged. Both adrenal glands and pancreas are normal. A simple cyst in the right kidney is unchanged. There is no hydronephrosis. The stomach is decompressed. The small and large bowel loops are nondilated. A 5.1 cm diverticulum arises from the third duodenum, unchanged. Postsurgical changes of right hemicolectomy and ileocolic anastomosis are seen. There is a left lower quadrant colostomy with a mucous fistula. Gas locules along the colonic wall near the ileocolic anastomosis likely reflect pseudopneumatosis (image 175 series 2). There is no free air or portal venous gas. The urinary bladder is decompressed. The uterus is surgically absent. Enhancing soft tissue nodule at the right aspect of the vaginal cuff measures 1.9 x 1.8 cm, previously 1.8 x 1.8 cm, unchanged (image 260 series 2). A soft tissue nodule with calcifications in the left lower quadrant that tethers adjacent small bowel loops and colon (image 235 series 2) is also unchanged measuring 1.1 x 1.4 cm. Soft tissue nodularity in the right anterior peritoneum with serosal involvement of loops of small bowel (image 205 series 2) is unchanged. No new site of disease is identified. Enlarged right periaortic lymph nodes measuring up to 10 mm in short axis (image 189 series 2) are unchanged. Thickening along the hepatic dome best seen on the coronal reformatted images is unchanged measuring up to 6 mm likely reflecting serosal deposits over the liver. A urethral diverticulum is present with stones. Bone windows show no suspicious lytic or blastic lesions. IMPRESSION: 1. Decreased size and enhancement of the bilobar hepatic metastatic disease reflecting response to treatment. 2. Stable peritoneal/mesenteric disease, vaginal cuff deposit and right periaortic retroperitoneal lymphadenopathy. 3. No evidence of metastatic disease to the chest. 4. Unchanged urethral diverticulum with stones. Electronically signed by: Ashley Anand M.D. Eren Cr MD IMG CT PROCEDURES Final Resul t * POCT creatinine (10/13/2021 9:54 AM CDT) Creatinine POC 0.9 0.6 - 1.1 mg/dL [facility] Blood 10/13/2021 9:54 AM CDT 10/13/2021 9:54 AM CDT Eren Cr MD LAB POCT ORDERABLES - DEVICE Final Result [facility] [place] [address] documented in this encounter Visit Diagnoses Diagnosis [...] 500 Units (5 mL), intra-catheter, Once, On Sat10/13/21 at 1030, For 1 dose, For port decannulation., Indications: Maintain Patency of Indwelling Vascular CatheterIndications:Maintai n Patency of Indwelling Vascular Catheter Given 10/13/2021 10:19 AM CDT 500 Units ioversoL (OPTIRAY 350) syringe syringe 100 mL 100 mL, intravenous, Once in imaging, contrast, Starting on Sat10/13/21 at 1001, For 1 dose Contrast Given 10/13/2021 10:13 AM CDT 95 mL documented in this encounter Care Teams Ice House Supervisor Relationship Specialty Start Date End Date Julio César Briseno MD PCP - General 10/01/16 Eren Cr MD Referring Physician Medical Oncology 11/25/18 Yohana Bowen MD Radiation Oncologist Radiation Oncology 11/25/18 Sabrina Willard NP [address] [place] [address] Nurse Practitioner Medical Oncology 08/17/20 11/26/21 documented as of this encounter
--- OUTSIDE RECORDS SUMMARY | 2024-06-25 22:23 | XMS_ITS | Encounter Summary ---
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) Bone metastasis Procedures CT chest abdomen pelvis with contrast Eren Cr MD [address] [place] [address] Phone: tel: fax: [address] [address] Referral ID Status Reason Start Date Expiration Date Visits Re quested Visits Authorized [id number] Closed 09/18/2021 10/18/2022 1 1 Encounter Details Date Type Department Care Team (Late st Contact Info) Description 09/18/2021 Orders Only [facility] Oncology [address] [facility] 7th [place] [address] [place] [address] Eren Cr MD [address] [facility] [address] [place] [address] Neuro-endocrine carcinoma (CMS/HCC) (HCC) (Primary Dx); Malignant [...] on file 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
--- OUTSIDE RECORDS SUMMARY | 2024-06-25 22:23 | XMS_ITS | Encounter Summary ---
Author Organization [facility] Address [address] [place] [address] Phone Care Team Providers Care Electron Beam Photo Mask Maker Name Role Phone Julio César Briseno MD Primary Care Provider Eren Cr MD Unavailable [phone] Yohana Bowen MD Unavailable Sabrina Willard NP Unavailable [phone] Encounter Details Date Type Department Care Team (Late st Contact Info) Description 10/17/2021 Orders Only [facility] Oncology [address] [place] [address] Claude Browning MD [address] [facility] [address] [place] [address] Social History Tobacco Use Types [...] on file 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 Gender Identity Not on file Sexual Orientation Straight 02/19/2021 9: 29 AM CDT Occupation Industry Job Start Date Job End Date retired Not on file Not on file Not on file documented as of this encounter Plan of Treatment Not on file documented as of this encounter Visit Diagnoses Not on filedocumented in this encounter Care Teams Electron Beam Photo Mask Maker Relationship Specialty Start Date End Date Julio César Briseno MD PCP - General 10/01/16 Eren Cr MD Referring Physician Medical Oncology 11/25/18 Yohana Bowen MD Radiation Oncologist Radiation Oncology 11/25/18 Sabrina Willard NP [address] [place] [address] Nurse Practitioner Medical Oncology 08/17/20 11/26/21 documented as of this encounter
--- OUTSIDE RECORDS SUMMARY | 2024-06-25 22:23 | XMS_ITS | Encounter Summary ---
Author Organization [facility] Healthcare Address [address] [place] [address] Care Team Providers Care Fuel System Maintenance Worker Name Role Phone Julio César Briseno MD Primary Care Provider [phone] Eren Cr MD Unavailable [phone] Yohana Bowen MD Unavailable Sabrina Willard NP Unavailable Reason for Visit * Reason Comments OP Infusion 1L NS, 4gm mag * Episode Based Medications (Routine) - Authorized Specialty Diagnoses / Procedures Referred By Contac t Referred To Contact Oncology Diagnoses 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) Procedures [place] DENOSUMAB INJECTION DENOSUMAB (XGEVA) Eren Cr MD [address] [facility] [address] [place] [address] Phone: tel: fax: [facility] [address] [facility] 7th [place] [address] Phone: tel: Referral ID Status Reason Start Date Expiration Date V isits Requested Visits Authorized [id number] Authorized 03/02/2019 10/06/2024 1 60 Encounter Details Date Type Department Care Team (Latest Contact Info) Description 09/18/2021 4:58 PM CDT - 09/18/2021 7:38 PM CDT Hospital Encounter [facility] (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 Gender Identity Not on file Sexual Orientation Straight 02/19/2021 9: 29 AM CDT Occupation Industry Job Start Date Job End Date retired Not on file Not on file Not on file documented as of this encounter Last Filed Vital Signs Vital Sign Reading Time Taken Comments Blood Pressure 132/72 09/18/2021 5:06 PM CDT Pulse 79 09/18/2021 5:06 PM CDT Temperature 36.3 ??C (97.3 ??F) 09/18/2021 5:06 PM CD T Respiratory Rate 18 09/18/2021 5:06 PM CDT Oxygen Saturation 100% 09/18/2021 5:06 PM CDT Inhaled Oxygen Concentration - - Weight - - Height - - Body Mass Index - - documented in this encounter Discharge Diagnoses Diagnosis Other malignant neuroendocrine tumors (HCC) - OTHER MALIGNANT NEUROENDOCRINE TUMORS Secondary malignant neoplasm of bone (CMS/HCC) (HCC) - SECONDARY MALIGNANT NEOPLASM OF BONE documented in this encounter Discharge Instructions * Patient Instructions* Vivian Hdz RN - 09/18/2021 6:32 PM CDT .After 4:30 PM during the week, on weekends and holidays, call [phone] and ask to have the Motor Room Controller Physician paged for you. Saturday through Saturday, 8 AM to 4:30 PM, call [phone] [facility] Oncology Physician at [facility] and ask for a member of your doctor's team. Special Instructions: ?? Drink at least 64 ounces of decaffeinated liquid every day. ?? Take your temperature 2 times a day. ?? Bring your bottles of all medicines you are taking with you or a [facility] Additional Information: ?? Diet: As tolerated. Avoid [...] under the skin every 28 (twenty-eight) days loperamide HCl (IMODIUM A-D ORAL)Indications:d iarrhea Take [...] tablet (20 mg total) by mouth nightly magnesium sulfate in 0.9 %NaCl 4 gram/100 mL piggybackIndicatio ns:Bone metastasis,Neuro-e ndocrine carcinoma (HCC) Infuse 4 g into a venous catheter once for 1 dose 100 mL 09/18/2021 2 albuterol HFA (PROVENTIL HFA,VENTOLIN HFA,PROAIR HFA) 90 mcg/actuation inhaler INHALE 1 PUFF BY MOUTH EVERY 4 HOURS 03/24/2021 2 ascorbic acid, vitamin C, 500 mg capsuleIndications :supplement Take 1 tablet by mouth internship coordinator before breakfast 07/04/2016 4 cholecalciferol (VITAMIN D-3) 2,000 unit capsule Take 1 capsule (2,000 Units total) by mouth daily 30 capsule 2 04/25/2019 3 cholestyramine (QUESTRAN) 4 gram packet Take 1 packet by mouth 3 (three) times a day with meals 270 packet 3 09/04/2019 2 clotrimazole-betam ethasone (LOTRISONE) cream Apply 1 Application topically daily as needed (rash) 4 coenzyme [id number] 100-5 mg-unit capsuleIndications :supplement Take 1 tablet by mouth internship coordinator before breakfast 4 denosumab (XGEVA) 120 mg/1.7 [...] dose).?? Avoid Jas's Wort, grapefruit products and [place] oranges while on treatment. placed on hold [...] Refills Last Filled Start Date End Date magnesium sulfate in 0.9 %NaCl 4 gram/100 mL piggybackIndicatio ns:Bone metastasis,Neuro-e ndocrine carcinoma (HCC) Infuse 4 g into a venous catheter once for 1 dose 100 mL 09/18/2021 2 documented in this encounter Discharge Disposition Disposition Code Departure Means Destination Discharge to home or self care documented in this encounter Nursing Notes * Vivian Hdz RN - 09/18/2021 7:17 PM CDT Patient arrived at [facility] for hydration fluids and magnesium replacement. Patient tolerating both well. No complaints/concerns. VSS. Port deaccessed and heparin locked. AVS printed. education completed. documented in this encounter Plan of Treatment [...] Date Dose Rate Site magnesium sulfate 4 g/100 mL in water (premix) 4 g 4 g, intravenous, Administer over 90 Minutes, Once, On Sat09/18/21 at 1745, For 1 doseIndications:Bone metastasis New Bag 09/18/2021 5:18 PM CDT 4 g sodium chloride 0.9% bolus 1,000 mL 1,000 mL, intravenous, at 500 mL/hr, Administer over 2 Hours, Once, On Sat09/18/21 at 1740, For 1 doseIndications:Bone metastasis,Neuro-endocrine carcinoma (HCC) New Bag 09/18/2021 5:18 PM CDT 1,000 mL 500 mL/hr documented in this encounter Active and Recently Administered Medications Due to Daylight Saving Time, this section may contain times in both WALKING DRAGLINE OPERATOR and CDT. Scheduled Medication Order 09/16/2021 09/17/2021 09/18/2021 magnesium sulfate 4 g/100 mL in water (premix) 4 g (COMPLETED) 4 g, intravenous, Administer over 90 Minutes, Once, On Sat09/18/21 at 1745, For 1 dose 1718 (New Bag - Prov ider: Vivian Hdz RN)1848 (Stopped - Provider: Vivian Hdz RN) sodium chloride 0.9% bolus 1,000 mL (COMPLETED) 1,000 mL, intravenous, at 500 mL/hr, Administer over 2 Hours, Once, On Sat09/18/21 at 1740, For 1 dose 1718 (New Bag - Prov ider: Vivian Hdz RN)1937 (Stopped - Provider: Vivian Villar RN) documented in this encounter Care Teams Fuel System Maintenance Worker Relationship Specialty Start Date End Date Julio César Briseno MD PCP - General 10/01/16 Eren Cr MD Referring Physician Medical Oncology 11/25/18 Yohana Boewn MD Radiation Oncologist Radiation Oncology 11/25/18 Sabrina Willard NP [address] [place] [address] Nurse Practitioner Medical Oncology 08/17/20 11/26/21 documented as of this encounter
--- OUTSIDE RECORDS SUMMARY | 2024-06-25 22:23 | XMS_ITS | Encounter Summary ---
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) Procedures MT DENOSUMAB INJECTION DENOSUMAB (XGEVA) Eren Cr MD [address] [facility] [address] [place] [address] Phone: tel: fax: [facility] [address] [facility] Advanced Medicine 7th [place] [address] Phone: tel: Referral ID Status Reason Start Date Expiration Date V isits Requested Visits Authorized [id number] Authorized 03/02/2019 10/06/2024 1 60 Encounter Details Date Type Department Care Team (Late st Contact Info) Description 09/26/2021 3:00 PM CDT Infusion [facility] Oncology [address] [facility] 7th [place] [address] Neuro-endocrine carcinoma (CMS/HCC) (HCC) (Primary Dx); Bone metastasis (CMS/HCC) (HCC) Social History Tobacco [...] on file Legal 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 Gender Identity Not on file Sexual Orientation Straight 02/19/2021 9: 29 AM CDT Occupation Industry Job Start Date Job End Date retired Not on file Not on file Not on file documented as of this encounter Last Filed Vital Signs Vital Sign Reading Time Taken Comments Blood Pressure 147/74 09/26/2021 2:58 PM CDT Pulse 79 09/26/2021 2:58 PM CDT Temperature 36.9 ??C (98.4 ??F) 09/26/2021 2:58 PM CD T Respiratory Rate 19 09/26/2021 2:58 PM CDT Oxygen Saturation 99% 09/26/2021 2:58 PM CDT Inhaled Oxygen Concentration - - Weight 76.6 kg (168 lb 12.8 oz) 09/26/2021 2:58 PM CDT Height - - Body Mass Index 30.79 07/17/2021 2:15 PM OUTDOOR ADVENTURE LEADER documented in this encounter Nursing Notes * Meagan Lyles - 09/26/2021 3:00 PM CDT Oncology Nursing Note [facility] La Chung is a 70 y.o. female who presents for IV fluids Pre-treatment Nursing Assessment Nursing Assessment Appetite:: Fair Diarrhea:: No Constipation:: No Last BM Date: 09/26/21 Existing Patients: Any falls since your last visit? : No Fatigue:: Occassional Mouth Sores:: Yes (MD aware) Nausea/Vomiting:: No Pain:: No Peripheral Neuropathy: : No Shortness of Breath?: No Swelling:: No Additional Notes: BP: 147/74 Temp: 36.9 ??C (98.4 ??F) Temp src: Temporal Pulse: 79 Resp: 19 SpO2: 99 % Weight: 76.6 kg (168 lb 12.8 oz) Treatment Patient: does not require labs today. Pre blood return: Mary Schwarz Sheldon tolerated treatment well. Additional Notes: Pt tolerated treatment well. No reaction noted. No questions or concerns. Will call team with any issues that arise. Discharged in stable condition. Follow up appts with pt. Post blood return: Brisk IV access post infusion: NS and Heparin 100 units/ml Patient Education Treatment Education: Information/teaching given to patient including Signs and symptoms of infection, Bleeding, Adverse reaction, Symptom management and When to notify MD and follow up Response: Verbalizes understanding Discharge Plan Discharge instructions [...] mL/hr, Administer over 2 Hours, Once, On Sat09/26/21 at 1530, For 1 doseIndications:Bone metastasis,Neuro-endocrine carcinoma (HCC) New Bag 09/26/2021 3:07 PM CDT 1,000 mL 500 mL/hr documented in this encounter Orders Medications Ordered That Brett ht Not Have Been Administered Count Last Ordered Date First Ordered Date sodium chloride 0.9% bolus 1,000 mL 1 09/26 Appointment Requests Count Last Ordered Date Fi rst Ordered Date ONCBCN INFUSION APPT REQUEST 1 09/26/2021 documented in this encounter Care Teams Finish Repair Worker Relationship Specialty Start Date End Date JulioC ésar Briseno MD PCP - General 10/01/16 Eren Cr MD Referring Physician Medical Oncology 11/25/18 Yohana Bowen MD Radiation Oncologist Radiation Oncology 11/25/18 Sabrina Willard NP [address] [place] [address] Nurse Practitioner Medical Oncology 08/17/20 11/26/21 documented as of this encounter
--- OUTSIDE RECORDS SUMMARY | 2024-06-25 22:23 | XMS_ITS | Encounter Summary ---
Author Organization [facility] Address [address] [place] [address] Phone Care Team Providers Care Headstart Teacher Name Role Phone Julio César Briseno MD Primary Care Provider [phone] Eren Cr MD Unavailable [phone] Yohana Bowen MD Unavailable Sabrina Willard NP Unavailable [phone] Encounter Details Date Type Department Care Team (Late st Contact Info) Description 10/16/2021 Orders Only [facility] Oncology [address] [place] [address] Claude Browning MD [address] [facility] [address] [place] [address] Social History Tobacco Use Types [...] on file 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 Gender Identity Not on file Sexual Orientation Straight 02/19/2021 9: 29 AM CDT Occupation Industry Job Start Date Job End Date retired Not on file Not on file Not on file documented as of this encounter Plan of Treatment Not on file documented as of this encounter Visit Diagnoses Not on filedocumented in this encounter Care Teams Headstart Teacher Relationship Specialty Start Date End Date Julio César Briseno MD PCP - General 10/01/16 Eren Cr MD Referring Physician Medical Oncology 11/25/18 Yohana Bowen MD Radiation Oncologist Radiation Oncology 11/25/18 Sabrina Willard NP [address] [place] [address] Nurse Practitioner Medical Oncology 08/17/20 11/26/21 documented as of this encounter
--- OUTSIDE RECORDS SUMMARY | 2024-06-25 22:23 | XMS_ITS | Encounter Summary ---
Author Organization [facility] Address [address] [facility] [address] [place] [address] Phone Care Team Providers Care Straddle Truck Operator Name Role Phone Julio César Briseno MD Primary Care Provider Eren Cr MD Unavailable [phone] Yohana Bowen MD Unavailable Sabrina Willard NP Unavailable [phone] Reason for Visit * Reason Comments colostomy complication Encounter Details Date Type Department Care Team (Late st Contact Info) Description 10/19/2021 3:45 PM CDT Office Visit [facility] Surgery [address] 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 Gender Identity Not on file Sexual Orientation Straight 02/19/2021 9: 29 AM CDT Occupation Industry Job Start Date Job End Date retired Not on file Not on file Not on file documented as of this encounter Last Filed Vital Signs Vital Sign Reading Time Taken Comments Blood Pressure 168/76 10/19/2021 4:00 PM CDT Pulse 75 10/19/2021 4:00 PM CDT Temperature 36.4 ??C (97.5 ??F) 10/19/2021 4:00 PM CD T Respiratory Rate - - Oxygen Saturation 100% 10/19/2021 4:00 PM CDT Inhaled Oxygen Concentration - - Weight 77.1 kg (170 lb) 10/19/2021 4:00 PM CDT Height 157.5 cm (5' 2 ) 10/19/2021 4:00 PM CDT Body Mass Index 31.09 10/19/2021 4:00 PM CDT documented in this encounter Progress Notes * Greyson Reeves MD - 10/19/2021 3:45 PM CDT Colorectal Surgery Clinic Visit Chief Complaint: La Chung is a 70 y.o. female with chief complaint of colostomy complication HPI: 70-year-old woman with a colostomy. She was started on a new study medication for her neuroendocrine tumor. She has had a good response to this so far. However as result she has developed increasing stool frequency and liquid stools. She has also developed issues with bleeding and is associated low platelets. All this is contributed to more difficulty with pouching of her colostomy as well as bleeding from the mucocutaneous junction. Past Medical History: Diagnosis Date ??? Arthritis [...] CHEST >5 YEARS N/A 09/14/2021 ? ? ME REMOVAL OF TONSILS,<12 Y/O Tonsillectomy - (Added by TW Conv) ??? ME TOTAL ABDOM HYSTERECTOMY Hysterectomy - (Added by TW Conv) HOME MEDICATIONS : ascorbic acid, vitamin C, 500 mg capsule cholecalciferol (VITAMIN D-3) 2,000 unit capsule clotrimazole-betamethasone (LOTRISONE) cream coenzyme F29-opcrids E 100-5 mg-unit capsule denosumab (Xgeva) 120 mg/1.7 mL (70 mg/mL) injection diphenoxylate-atropine (LOMOTIL) 2.5-0.025 mg per tablet DULoxetine DR (CYMBALTA) 30 mg capsule fluticasone propionate (FLONASE) 50 mcg/actuation nasal spray [facility] cabozantinib/placebo (/[id number]) 20 mg tablet lidocaine-prilocaine (lidocaine-prilocaine) cream loperamide HCl (IMODIUM A-D ORAL) LORazepam (ATIVAN) 0.5 mg tablet octreotide (SandoSTATIN) 100 mcg/mL injection olmesartan-hydrochlorothiazide (BENICAR HCT) 20-12.5 mg per tablet ondansetron (ZOFRAN) 8 mg tablet ostomy supplies misc oxybutynin (DITROPAN) 5 mg tablet simvastatin (ZOCOR) 20 mg tablet albuterol HFA (PROVENTIL HFA,VENTOLIN HFA,PROAIR HFA) 90 mcg/actuation inhaler cholestyramine (QUESTRAN) 4 gram packet denosumab (XGEVA) 120 mg/1.7 mL (70 mg/mL) injection doxycycline hyclate 100 mg capsule everolimus (AFINITOR) 10 mg tablet gabapentin (NEURONTIN) 600 mg tablet montelukast (SINGULAIR) 10 mg tablet octreotide (SandoSTATIN) 50 mcg/mL (1 mL) syringe potassium, sodium phosphates (PHOS-NAK) 280-160-250 mg powder in packet triamcinolone (KENALOG) 0.1 % ointment al & mag hydroxide with aomolpbpgtm-amnladruuonmvfg-bgjzqbdyo (MAGIC MOUTHWASH) suspension 1-1-1 Allergies Allergen Reactions ??? Morphine Blisters ??? Ezetimibe-Simvastatin Muscle pain and Unknown Muscle weakness ??? Ramipril Cough Social History Tobacco Use ??? Smoking status: Never Smoker ??? Smokeless tobacco: Never Used Substance Use Topics ??? Alcohol use: Yes Alcohol/week: 1.0 standard drink Types: 1 Shots of liquor per week Family History Problem Relation Age of Onset ??? Breast cancer Sister 61 Adenocarcinoma of breast - (Added by TW Conv) ??? Suicidality Father Family history of suicide - (Added by TW Conv) ??? Other (old age) Mother ??? Melanoma Daughter 30 Review of Systems: All systems are negative except as per HPI and scanned media. Vitals: Vitals BP 168/76 Pulse 75 Temp 36.4 ??C (97.5 ??F) Ht 157.5 cm (5' 2 ) Wt 77.1 kg (170 lb) SpO2 100% BMI 31.09 kg/m?? Physical exam: GENERAL EXAM Appearance - well developed, well nourished Orientation - alert and oriented x 3 Eyes - anicteric Ears, mouth and nose: Normal Neurologic: Non-focal motor function Pulmonary: Non-labored breathing, no audible wheezing Integumentary: No rashes Musculoskeletal: No gross bony deformities Abdomen -- Soft nontender, nondistended, no masses. Midline incision is well healed. Left lower quadrant colostomy. She had pictures which showed some granulation tissue at the mucocutaneous junctioncolostomy was pink and viable but somewhat retracted. Assessment: La Chung is a 70 y.o. female with colostomy complication Plan: Like to increase the bulk of her stool she will do this with fiber as well as adding Imodium to herregimen to see if we can slow things down. She also consider using silver nitrate sticks at the mucocutaneous junction to help with the bleeding. She also make a an appointment with Darling Blevins our enterostomal therapist. Greyson Reeves MD 10/19/2021 4:22 PM documented in this encounter Plan of Treatment Not on file documented as of this encounter Visit Diagnoses Diagnosis Colostomy complication, unspecified (HCC)- Primary documented in this encounter Discontinued Medications Medication Sig Discontinue Reason Start Date End Da te al & mag hydroxide with simethicone-diphenhydram ine-lidocaine (MAGIC MOUTHWASH) suspension [id number]:Neuro-e ndocrine carcinoma (HCC),Oral mucositis Swish and swallow 10 mL every 4 (four) hours as needed (oral mucositis) Therapy completed 09/19/2021 10/19/2021 documented as of this encounter Care Teams Straddle Truck Operator Relationship Specialty Start Date End Date Julio César Briseno MD PCP - General 10/01/16 Eren Cr MD Referring Physician Medical Oncology 11/25/18 Yohana Bowen MD Radiation Oncologist Radiation Oncology 11/25/18 Sabrina Willard NP [address] [place] [address] Nurse Practitioner Medical Oncology 08/17/20 11/26/21 documented as of this encounter
--- OUTSIDE RECORDS SUMMARY | 2024-06-25 22:23 | XMS_ITS | Encounter Summary ---
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) Procedures [place] OCTREOTIDE INJECTION, DEPOT Octreotide 28 Day Cycles - Carcinoid Eren Cr MD [address] [facility] [address] [place] [address] Phone: tel: fax: [facility] [address] [address] Phone: tel: fax: Referral ID Status Reason Start Date Expiration Date V isits Requested Visits Authorized [id number] Authorized 11/28/2017 02/05/2025 1 150 Encounter Details Date Type Department Care Team (Late st Contact Info) Description 10/16/2021 9:45 AM CDT Lab [facility] Oncology [address] [facility] 7th [place] [address] [place] [phone] Neuroendocrine carcinoma (CMS/HCC) (HCC) (Primary Dx); 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); Neuro-endocrine carcinoma (CMS/HCC) (HCC); Hypophosphatemia Social History Tobacco [...] on file 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 Gender Identity Not on file Sexual Orientation Straight 02/19/2021 9: 29 AM CDT Occupation Industry Job Start Date Job End Date retired Not on file Not on file Not on file documented as of this encounter Plan of Treatment Not on file documented as of this encounter Procedures Procedure Name Priority Date/Time Associated Diagnosis Comments EGFR STAT 10/16/2021 9:59 AM CDT 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) DIFFERENTIAL AUTO Routine 10/16/2021 9:5 9 AM CDT 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) CHROMOGRANIN A Routine 10/16/2021 9:59 AM CDT 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) CBC WITH AUTO DIFFERENTIAL Routine 10/16/2021 9:59 AM CDT 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) VITAMIN D 25 HYDROXY Routine 10/16/2021 9:59 AM CDT 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) TSH Routine 10/16/2021 9:59 AM CDT Neuro-endocrine carcinoma (CMS/HCC) (HCC) PHOSPHORUS Routine 10/16/2021 9:59 AM CDT 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) MAGNESIUM STAT 10/16/2021 9:59 AM CDT Neuro-endocrine carcinoma (CMS/HCC) (HCC) LIPID PANEL Routine 10/16/2021 9:59 AM CDT 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) COMPREHENSIVE METABOLIC PANEL STAT 10/16/2021 9:59 AM CDT 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) documented in this encounter Results * (ABNORMAL) eGFR (10/16/2021 9:59 AM CDT) [facility] eGFR 55(L) 90 - 130 mL/min/1. 73 m2 [facility] Comment: Interpretive Data Reference Interval Normal [...] was last reviewed 2021. Testing performed by: [facility], [address] [place] [phone] Blood 10/16/2021 9:59 AM CDT 10/16/2021 10:03 AM CDT Eren Cr MD LAB BLOOD ORDERABLES Final Re sult [facility] Department [place] [address] * (ABNORMAL) Differential, auto (10/16/2021 9:59 AM CDT) Neutrophil abs 1.8 1.8 - 6.6 K/cumm [facility] Comment:Testing performed by : [facility], [address] [place] [phone] Lymphocyte abs 0.4(L) 1.2 - 3.3 K/cumm [facility] Comment:Testing performed by : [facility], [address] [place] [phone] Monocyte abs 0.2 0.2 - 1.2 K/cumm [facility] Comment:Testing performed by : [facility], [address] [place] [phone] Eosinophil abs 0.4 0.0 - 0.5 K/cumm [facility] Comment:Testing performed by : [facility], [address] [place] [phone] Basophil abs 0.0 0.0 - 0.2 K/cumm [facility] Comment:Testing performed by : [address] [phone] Neutrophil pct 62.3 % [facility] Comment: Interpretive Data Percent cell count reference ranges are not reported, since discordance with absolute values may lead to misinterpretation of CBC data. Current Interpretive Data was last revised on 2017. Testing performed by: [facility], [address] [place] [phone] Lymphocyte pct 12.8 % [facility] Comment: Interpretive Data Percent cell count reference ranges are not reported, since discordance with absolute values may lead to misinterpretation of CBC data. Current Interpretive Data was last revised on 2017. Testing performed by: [facility], [address] [place] [phone] Monocyte pct 8.5 % [facility] Comment:Testing performed by : [facility], [address] [place] [phone] Eosinophil pct 15.6 % [facility] Comment:Testing performed by : [facility], [address] [place] [phone] Basophil pct 0.8 % [facility] Comment:Testing performed by : [facility], [address] [place] [phone] Blood 10/16/2021 9:59 AM CDT 10/16/2021 10:03 AM CDT Eren Cr MD LAB BLOOD ORDERABLES Final Re sult [facility] Department [place] [address] * (ABNORMAL) Magnesium (10/16/2021 9:59 AM CDT) Magnesium 1.0(L) 1.4 - 2.5 mg/dL [facility] Comment:Testing performed by : [facility], [address] [place] [phone] Blood 10/16/2021 9:59 AM CDT 10/16/2021 10:03 AM CDT Eren Cr MD LAB BLOOD ORDERABLES Final Re sult Performing Organization Address [facility] Co de Phone Number [facility] [place] [address] * (ABNORMAL) TSH (10/16/2021 9:59 AM CDT) Thyroid Stimulating Hormone 5.45(H) 0.30 - 4.20 mcIUnit/mL [facility] Blood 10/16/2021 9:59 AM CDT 10/16/2021 10:32 AM CDT Eren Cr MD LAB BLOOD ORDERABLES Final Re sult Performing Organization Address [facility] de Phone Number [facility] Department [place] [address] * (ABNORMAL) Lipid panel (10/16/2021 9:59 AM CDT) Cholesterol 180 30 - 199 mg/dL [facility] Comment: Interpretive Data Ages < [...] Data was last revised on 2018. Triglycerides 248(H) <=149 mg/dL [facility] Comment: Interpretive Data Ages < [...] Data was last revised on 2018. HDL 46 >=40 mg/dL [facility] Comment: Interpretive Data Ages < or [...] on 2018. LDL, calculated 84 <=129 mg/dL [facility] Comment: Interpretive Data Ages < [...] was last revised on 2018. Non-HDL Cholesterol 134 mg/dL [facility] Comment: Interpretive Data Ages < [...] last revised on 2018. Chol/HDL ratio 4 [facility] Blood 10/16/2021 9:59 AM CDT 10/16/2021 10:32 AM CDT us Eren Cr MD LAB BLOOD ORDERABLES Final Re sult Performing Organization Address [facility] Co de Phone Number [facility] Department [place] [address] * Phosphorus (10/16/2021 9:59 AM CDT) Phosphorus, pl 2.3 2.3 - 4.5 mg/dL [facility] Comment:Testing performed by : [facility], [address] [place] [phone] Blood 10/16/2021 9:59 AM CDT 10/16/2021 10:03 AM CDT Eren Cr MD LAB BLOOD ORDERABLES Final Re sult [facility] Department [place] [address] * (ABNORMAL) Vitamin D 25 hydroxy (10/16/2021 9:59 AM CDT) Pathologist [facility] Vitamin D 25-OH 24(L) 30 - 80 ng/mL [facility] Blood 10/16/2021 9:59 AM CDT 10/16/2021 10:32 AM CDT us Eren Cr MD LAB BLOOD ORDERABLES Final Re sult [facility] Department [place] [address] * (ABNORMAL) CBC with auto differential (10/16/2021 9:59 AM CDT) [facility] WBC 2.9(L) 3.8 - 9.8 K/cumm [facility] Comment:Testing performed by : [facility], [address] [place] [phone] Hgb 10.1(L) 12.1 - 15.1 g/dL [facility] Comment:Testing performed by : [facility], [address] [place] [phone] Hct 28.8(L) 36.1 - 44.3 % [facility] Comment:Testing performed by : [facility], [address] [place] [phone] Plt 78(L) 140 - 440 K/cumm [facility] Comment:Testing performed by : [facility], [address] [place] [phone] MPV 8.4 6.8 - 10.4 fL [facility] Comment:Testing performed by : [facility], [address] [place] [phone] RBC 3.03(L) 3.90 - 5.00 M/cumm [facility] Comment:Testing performed by : [facility], [address] [place] [phone] MCV 95.2 80.0 - 97.6 fL [facility] Comment:Testing performed by : [facility], [address] [place] [phone] MCH 33.3 26.7 - 33.7 pg [facility] Comment:Testing performed by : [facility], [address] [place] [phone] MCHC 35.0 32.7 - 35.5 g/dL [facility] Comment:Testing performed by : [facility], [address] [place] [phone] RDW CV 22.9(H) 11.8 - 14.6 % [facility] Comment:Testing performed by : [facility], [address] [place] [phone] NRBC abs 0.00 0.00 - 0.01 K/cumm [facility] Comment:Testing performed by : [facility], [address] [place] [phone] Blood 10/16/2021 9:59 AM CDT 10/16/2021 10:03 AM CDT us Eren Cr MD LAB BLOOD ORDERABLES Final Re sult [facility] Department of Laboratories [place], [place] [phone] * (ABNORMAL) Comprehensive metabolic panel (10/16/2021 9:59 AM CDT) Sodium 142 135 - 145 mmol/L [facility] Comment:Testing performed by : [facility], [address] [place] [phone] Potassium, pl 3.6 3.3 - 4.9 mmol/L [facility] Comment:Testing performed by : [facility], [address] [place] [phone] Chloride 110 97 - 110 mmol/L [facility] Comment:Testing performed by : [facility], [address] [place] [phone] CO2 24 22 - 32 mmol/L [facility] Comment:Testing performed by : [facility], [address] [place] [phone] Anion gap 8 2 - 15 mmol/L [facility] Comment:Testing performed by : [facility], [address] [place] [phone] BUN 16 8 - 25 mg/dL [facility] Comment:Testing performed by : [facility], [address] [place] [phone] Creatinine 1.07 0.60 - 1.10 mg/dL [facility] Comment:Testing performed by : [facility], [address] [place] [phone] Glucose 120 70 - 199 mg/dL [facility] Comment: [...] was last revised 2017. Testing performed by: [facility], [address] [place] [phone] Calcium 10.1 8.5 - 10.3 mg/dL [facility] Comment:Testing performed by : [address] [phone] Bilirubin, total 0.8 0.1 - 1.2 mg/dL [facility] Comment:Testing performed by : [facility], [address] [place] [phone] Protein, pl 5.8(L) 6.5 - 8.5 g/dL [facility] Comment:Testing performed by : [address] [phone] Albumin 3.9 3.5 - 5.0 g/dL [facility] Comment:Testing performed by : [address] [phone] Alk phos 84 40 - 130 Units/L [facility] Comment:Testing performed by : [facility], [address] [facility] [phone] ALT 25 7 - 45 Units/L [facility] Comment:Testing performed by : [facility], [address] [facility] [phone] AST 35 10 - 45 Units/L [facility] Comment:Testing performed by : [facility], [address] [place] [phone] Blood 10/16/2021 9:59 AM CDT 10/16/2021 10:03 AM CDT us Eren Cr MD LAB BLOOD ORDERABLES Final Re sult [facility] [place] [address] * (ABNORMAL) Chromogranin A (10/16/2021 9:59 AM CDT) Chromogranin A 812(H) <93 ng/mL [facility] Comment: Impaired renal or hepatic function or treatment with proton pump inhibitors may result in artifactual elevations of Chromogranin A. ADDITIONAL INFORMATION This test was developed and its performance characteristics determined by [facility] in a manner consistent with CLIA requirements. [...] a homogeneous time-resolved immunofluorescent assay manufactured by [employer] and performed on the e-volo [employer] Compact Plus. ? Values obtained with different assay methods or kits may be different and cannot be used interchangeably. ? Test results cannot be interpreted as absolute evidence for the presence or absence of malignant disease. Test Performed by: [facility] [address] [facility], [place] [address] Baler Operator: Immanuel Novak M.D. Ph.D.; CLIA# [id number] Blood 10/16/2021 9:59 AM CDT 10/16/2021 11:37 AM CDT Eren Cr MD LAB BLOOD ORDERABLES Final Re sult [facility] [place] [address] documented in this encounter Visit Diagnoses Diagnosis [...] needed, line care, Starting on Sat10/16/21 at 1008, Flush with Heparin immediately prior to de-accessing port.Indications:Hypophosphate jaycee Given 10/16/2021 10:00 AM CDT 500 Units sodium chloride 0.9% flush 10 mL 10 mL, intravenous, As needed, line care, Starting on Sat10/16/21 at 1008, Flush pre and post IV catheter use.Indications:Hypophosphatem ia Given 10/16/2021 9:55 AM CDT 10 mL documented in this encounter Orders Appointment Requests Count Last Ordered Date Fi rst Ordered Date ONCBCN LAB APPOINTMENT 1 10/16/2021 documented in this encounter Care Teams Cabin Crew Relationship Specialty Start Date End Date Julio César Briseno MD PCP - General 10/01/16 Eren Cr MD Referring Physician Medical Oncology 11/25/18 Yohana Bowen MD Radiation Oncologist Radiation Oncology 11/25/18 Sabrina Willard NP [address] [place] [address] Nurse Practitioner Medical Oncology 08/17/20 11/26/21 documented as of this encounter
--- OUTSIDE RECORDS SUMMARY | 2024-06-25 22:23 | XMS_ITS | Encounter Summary ---
Author Organization [facility] Address [address] [place] [address] Phone Care Team Providers Care Buoy Tender Name Role Phone Julio César Briseno MD Primary Care Provider Eren Cr MD Unavailable [phone] Yohana Bowen MD Unavailable Sabrina Willard NP Unavailable [phone] Encounter Details Date Type Department Care Team (Late st Contact Info) Description 10/23/2021 Orders Only [facility] Oncology [address] [facility] 7th [place] [address] [place] [phone] Elaine Coy Social History Tobacco Use Types Packs/Day Years [...] file 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 Identity Not on file Sexual Orientation Straight 02/19/2021 9: 29 AM CDT Occupation Industry Job Start Date Job End Date retired Not on file Not on file Not on file documented as of this encounter Plan of Treatment Not on file documented as of this encounter Visit Diagnoses Not on filedocumented in this encounter Care Teams Buoy Tender Relationship Specialty Start Date End Date Julio César Briseno MD PCP - General 10/01/16 Eren Cr MD Referring Physician Medical Oncology 11/25/18 Yohana Bowen MD Radiation Oncologist Radiation Oncology 11/25/18 Sabrina Willard NP [address] [place] [address] Nurse Practitioner Medical Oncology 08/17/20 11/26/21 documented as of this encounter
--- OUTSIDE RECORDS SUMMARY | 2024-06-25 22:23 | XMS_ITS | Encounter Summary ---
Author Organization 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 and [facility] [address] [facility] 7th [place] [address] Phone: tel: Referral ID Status Reason Start Date Expiration Date Visits Re quested Visits Authorized [id number] Closed 06/21/2021 06/26/2024 1 99 Encounter Details Date Type Department Care Team (Late st Contact Info) Description 11/13/2021 1:45 PM CDT Office Visit [facility] [address] 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 Gender Identity Not on file Sexual Orientation Straight 02/19/2021 9: 29 AM CDT Occupation Industry Job Start Date Job End Date retired Not on file Not on file Not on file documented as of this encounter Last Filed Vital Signs Vital Sign Reading Time Taken Comments Blood Pressure 134/64 11/13/2021 1:41 PM CDT Pulse 74 11/13/2021 1:41 PM CDT Temperature 36.6 ??C (97.8 ??F) 11/13/2021 1:41 PM CD T Respiratory Rate 20 11/13/2021 1:41 PM CDT Oxygen Saturation 97% 11/13/2021 1:41 PM CDT Inhaled Oxygen Concentration - - Weight 76.4 kg (168 lb 6.4 oz) 11/13/2021 1:41 P M CDT Height - - Body Mass Index 30.8 10/19/2021 4:00 PM CDT documented in this encounter Progress Notes * Ngozi Lindsey NP - 11/13/2021 1:45 PM CDT MEDICAL ONCOLOGY OUTPATIENT ROV NOTE DATE OF VISIT: 11/13/2021 REASON FOR VISIT: Imaging, CAINET study DIAGNOSIS: [...] time, she also underwent right colectomy in [facility] [place] by Dr. Greyson Reeves. [...] the study drug, 60 mg once daily. Since last being seen, she has developed intolerable foot pain (tenderness on soles of feet, especially toes, balls of feet, and now heels) that is making walking difficult. She has been using a wheelchair when shopping due the the pain from walking. She is still able to carry out self care ADLs (dressing, cooking, etc). She has been taking Tylenol with only minimal relief. She report some skin peeling, has been using Biofreeze for the discomfort. She also reports liquid stool for which she is taking lomotil 3-4 times per day. She also has some skin breakdown at her ostomy site and was seen recently by Dr. Reeves. She reports mild mouth sores that she has just noticed in the last few days, not interfering with eating. Activity, appetite levels have been stable (with the exception of decreased walking due to foot pain). Denies new lumps or bumps, fevers, chills, night sweats, SOB, cough, chest pain, constipation. Denies vision changes, headaches, numbness, or tingling. Denies rashes or bruising ALLERGIES: Allergies Allergen Reactions ??? Morphine Blisters ??? Ezetimibe-Simvastatin Muscle pain and Unknown Muscle weakness ??? Ramipril Cough REVIEW OF SYSTEMS: A complete review of systems was performed and positive and pertinent negative responses are documented in the history of present illness All other systems were negative. PHYSICAL EXAM: ECOG PS: 1 VITALS: BP 134/64 (BP Location: Left arm) Pulse 74 Temp 36.6 ??C (97.8 ??F) (Transdermal) Resp 20 Wt 76.4 kg (168 lb 6.4 oz) SpO2 97% BMI 30.80 kg/m?? GEN: Calm, conversant, well-appearing female in [...] balls of feet. Mild erythema. 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 Hematology Lab History Some values may be hidden. Unless noted otherwise, only the newest values recorded on each date aredisplayed. Labs - Hematology Latest Ref Range 09/04/21 09/18/21 10/16/21 11/13/21 WBC 3.8 - 9.8 K/cumm 4.0 3.0 (A) 2.9 (A) 4.2 Total Hb, POC 12.1 - 15.1 g/dL 15.5 (A) 13.1 10.1 (A) 11.1 (A) Hct 36.1 - 44.3 % 44.2 36.9 28.8 (A) 32.0 (A) Plt 140 - 440 K/cumm 101 (A) 71 (A) 78 (A) 110 (A) Neutrophil abs 1.8 - 6.6 K/cumm 2.5 1.8 1.8 2.8 Lymphocytes, abs 1.2 - 3.3 K/cumm 1.0 (A) 0.7 (A) 0.4 (A) 0.5 (A) (A) Abnormal value Comments are available for some flowsheets but are not being displayed. Chem/LFT Lab History Some values may be hidden. Unless noted otherwise, only the newest values recorded on each date aredisplayed. Labs-Chem/LFT Latest Ref Range 09/18/21 10/13/21 10/16/21 11/13/21 Sodium 135 - 145 mmol/L 137 142 142 Creatinine 0.60 - 1.10 mg/dL 1.55 (A) 1.07 1.25 (A) Bilirubin, total 0.1 - 1.2 mg/dL 0.9 0.8 0.7 AST 10 - 45 Units/L 54 (A) 35 38 ALT 7 - 45 Units/L 39 25 25 CrCl- Actual Body Weight (Cockcroft-Gault) 39.1 68.1 58.1 48.3 (A) Abnormal value Comments are available for some flowsheets but are not being displayed. Tumor Marker History Some values may be hidden. Unless noted otherwise, only the newest values recorded on each date aredisplayed. Tumor Markers Latest Ref Range 07/17/21 08/21/21 09/18/21 10/16/21 Chromogranin A <93 ng/mL 1727 (A) 877 (A) 912 (A) 812 (A) (A) Abnormal value Comments are available [...] Continue on the CABINET trial: Cabozantinib/placebo - HOLD treatment for two weeks for Grade 2 Hand Foot Syndrome (managed as below) - Grade 1 platelet count- 110 - Xgeva today 2. Diarrhea - stable ostomy output - continue lomotil 3. Hypomagnesemia - magnesium 1.1 today, grade 2 per CTCAE 5.0 - will give 4g of magnesium IV today - holding off on oral replacement due to risk for worsening diarrhea 4. TSH elevated - 16.00 - reflex to T4 0.70 - Start synthroid 75 mcg daily 5. Hand Foot Syndrome - Grade 2 (causing pain, interfering with ambulation). Per study protocol (section 8.2.13) will hold treatment for two weeks. We will see her back in two weeks, and if symptoms have resolved to grade1, will restart Cabozantinib at reduced dose of 40 mg daily. Recommended use of a thick moisturizerwith 20% urea cream. 6. Mouth Sores - Grade 1 - Will start salt water mouth rinse. Will return to clinic on 11/27 for CABINET study participation (plan to re- evaluate HFS, restart Cabo at reduced dose). ?? All of??her and her 's??questions were answered to their satisfaction and they verbalized understanding. ?? Ngozi Napier, ARIELA, [facility] CENTERNP- Nurse Practitioner, Medical Oncology Cosigned by Eren Cr Jr., MD at 11/15/2021 12:13 PM CDT documented in this encounter Plan of Treatment Not on file documented as of this encounter Results * (ABNORMAL) Chromogranin A (12/11/2021 11:22 AM CDT) Chromogranin A 773(H) <93 ng/mL [facility] Comment: Impaired renal or hepatic function or treatment with proton pump inhibitors may result in artifactual elevations of Chromogranin A. ADDITIONAL INFORMATION This test was developed and its performance characteristics determined by [facility] in a manner consistent with CLIA requirements. [...] a homogeneous time-resolved immunofluorescent assay manufactured by [employer] and performed on the [employer]ved [employer] Compact Plus. ? Values obtained with different assay methods or kits may be different and cannot be used interchangeably. ? Test results cannot be interpreted as absolute evidence for the presence or absence of malignant disease. Test Performed by: [facility] [address] [place] [address] Youth Probation Officer: Immanuel Novak M.D. Ph.D.; IA# [id number] Blood 12/11/2021 11:2 2 AM CDT 12/11/2021 11:34 AM CDT us Eren Cr MD LAB BLOOD ORDERABLES Final Re sult [facility] Department [place] [address] * (ABNORMAL) Comprehensive metabolic panel (12/11/2021 11:22 AM CDT) Sodium 138 135 - 145 mmol/L [facility] Comment:Testing performed by : [facility], [address] [place] [phone] Potassium, pl 3.7 3.3 - 4.9 mmol/L [facility] Comment:Testing performed by : [facility], [address] [place] [phone] Chloride 107 97 - 110 mmol/L [facility] Comment:Testing performed by : [facility], [address] [place] [phone] CO2 27 22 - 32 mmol/L [facility] Comment:Testing performed by : [facility], [address] [place] [phone] Anion gap 4 2 - 15 mmol/L [facility] Comment:Testing performed by : [facility], [address] [place] [phone] BUN 15 8 - 25 mg/dL [facility] Comment:Testing performed by : [facility], [address] [place] [phone] Creatinine 0.93 0.60 - 1.10 mg/dL [facility] Comment:Testing performed by : [facility], [address] [place] [phone] Glucose 117 70 - 199 mg/dL [facility] Comment: Interpretive Data Fasting glucose >/= [...] was last revised 2017. Testing performed by: [facility], [address] [place], [place] [id number] Calcium 10.0 8.5 - 10.3 mg/dL [facility] Comment:Testing performed by : [address] Bilirubin, total 0.6 0.1 - 1.2 mg/dL [facility] Comment:Testing performed by : [place] [id number] Protein, pl 6.1(L) 6.5 - 8.5 g/dL [facility] Comment:Testing performed by : [address] [phone] Albumin 4.0 3.5 - 5.0 g/dL [facility] Comment:Testing performed by : [address] [phone] Alk phos 77 40 - 130 Units/L [facility] Comment:Testing performed by : [place] [id number] ALT 22 7 - 45 Units/L [facility] Comment:Testing performed by : [address] [phone] AST 32 10 - 45 Units/L [facility] Comment:Testing performed by : [address] [phone] Blood 12/11/2021 11:2 2 AM CDT 12/11/2021 11:26 AM CDT us Eren Cr MD LAB BLOOD ORDERABLES Final Re sult [facility] Department [place] [address] * (ABNORMAL) CBC with auto differential (12/11/2021 11:22 AM CDT) WBC 3.7(L) 3.8 - 9.8 K/cumm [facility] Comment:Testing performed by : [facility], [address] [place] [phone] Hgb 11.6(L) 12.1 - 15.1 g/dL [facility] Comment:Testing performed by : [facility], [address] [place] [phone] Hct 32.8(L) 36.1 - 44.3 % [facility] Comment:Testing performed by : [place] [id number] Plt 110(L) 140 - 440 K/cumm [facility] Comment:Testing performed by : [facility], [address] [place] [phone] MPV 8.8 6.8 - 10.4 fL [facility] Comment:Testing performed by : [address] [phone] RBC 3.13(L) 3.90 - 5.00 M/cumm [facility] Comment:Testing performed by : [address] [phone] MCV 104.5(H) 80.0 - 97.6 fL [facility] Comment:Testing performed by : [facility], [address] [place] [phone] MCH 37.0(H) 26.7 - 33.7 pg [facility] Comment:Testing performed by : [address] [phone] MCHC 35.4 32.7 - 35.5 g/dL [facility] Comment:Testing performed by : [address] [phone] RDW CV 14.3 11.8 - 14.6 % [facility] Comment:Testing performed by : [facility], [address] [place] [phone] NRBC abs 0.00 0.00 - 0.01 K/cumm [facility] Comment:Testing performed by : [facility], [address] [place] [phone] Blood 12/11/2021 11:2 2 AM CDT 12/11/2021 11:26 AM CDT Eren Cr MD LAB BLOOD ORDERABLES Final Re sult Performing Organization Address [facility]/[place] [address] * (ABNORMAL) Vitamin D 25 hydroxy (12/11/2021 11:22 AM CDT) Pathologist [facility] Vitamin D 25-OH 20(L) 30 - 80 ng/mL [facility] Blood 12/11/2021 11:2 2 AM CDT 12/11/2021 11:48 AM CDT Eren Cr MD LAB BLOOD ORDERABLES Final Re sult Performing Organization Address [facility] [place] [address] * (ABNORMAL) Phosphorus (12/11/2021 11:22 AM CDT) Phosphorus, pl 1.8(L) 2.3 - 4.5 mg/dL [facility] Comment:Testing performed by : [facility], [address] [place] [phone] Blood 12/11/2021 11:2 2 AM CDT 12/11/2021 11:26 AM CDT Eren Cr MD LAB BLOOD ORDERABLES Final Re sult Performing Organization Address City/[facility] Co de Phone Number [facility] of Laboratories [place] [phone] * (ABNORMAL) Lipid panel (12/11/2021 11:22 AM CDT) [facility] Signature Cholesterol 165 30 - 199 mg/dL [facility] Comment: Interpretive Data Ages < or [...] on 2018. Triglycerides 203(H) <=149 mg/dL [facility] Comment: Interpretive Data Ages < or [...] revised on 2018. HDL 52 >=40 mg/dL [facility] Comment: Interpretive Data Ages < or [...] on 2018. LDL, calculated 72 <=129 mg/dL [facility] Comment: Interpretive Data Ages < or [...] revised on 2018. Non-HDL Cholesterol 113 mg/dL [facility] Comment: Interpretive Data Ages < or [...] on 2018. Chol/HDL ratio 3 [facility] Blood 12/11/2021 11:2 2 AM CDT 12/11/2021 11:48 AM CDT Eren Cr MD LAB BLOOD ORDERABLES Final Re sult Performing Organization Address City/[facility] Co de Phone Number [facility] [place] [address] * Phosphorus (11/27/2021 1:08 PM CDT) Phosphorus, pl 2.5 2.3 - 4.5 mg/dL [facility] Comment:Testing performed by : [facility], [address] [place] [phone] Blood 11/27/2021 1:08 PM CDT 11/27/2021 1:12 PM CDT Eren Cr MD LAB BLOOD ORDERABLES Final Re sult Performing Organization Address [facility] de Phone Number [place], [place] [phone] * Magnesium (11/27/2021 1:08 PM CDT) Magnesium 1.4 1.4 - 2.5 mg/dL [facility] Comment:Testing performed by : [facility], [address] [place] [phone] Blood 11/27/2021 1:08 PM CDT 11/27/2021 1:12 PM CDT Eren Cr MD LAB BLOOD ORDERABLES Final Re sult Performing Organization Address City/[facility] Co de Phone Number [facility] [place] [address] * (ABNORMAL) Comprehensive metabolic panel (11/27/2021 1:08 PM CDT) Sodium 141 135 - 145 mmol/L [facility] Comment:Testing performed by : [facility], [address] [place] [phone] Potassium, pl 4.0 3.3 - 4.9 mmol/L [facility] Comment:Testing performed by : [facility], [address] [place] [phone] Chloride 107 97 - 110 mmol/L [facility] Comment:Testing performed by : [facility], [address] [place] [phone] CO2 27 22 - 32 mmol/L [facility] Comment:Testing performed by : [facility], [address] [place] [phone] Anion gap 7 2 - 15 mmol/L [facility] Comment:Testing performed by : [facility], [address] [place] [phone] BUN 15 8 - 25 mg/dL [facility] Comment:Testing performed by : [facility], [address] [place] [phone] Creatinine 0.92 0.60 - 1.10 mg/dL [facility] Comment:Testing performed by : [facility], [address] [place] [phone] Glucose 155 70 - 199 mg/dL [facility] Comment: [...] was last revised 2017. Testing performed by: [address] [phone] Calcium 10.3 8.5 - 10.3 mg/dL [facility] Comment:Testing performed by : [facility], [address] [place] [phone] Bilirubin, total 0.6 0.1 - 1.2 mg/dL [facility] Comment:Testing performed by : [facility], [address] [place] [phone] Protein, pl 6.0(L) 6.5 - 8.5 g/dL [facility] Comment:Testing performed by : [facility], [address] [place] [phone] Albumin 4.1 3.5 - 5.0 g/dL [facility] Comment:Testing performed by : [facility], [address] [place] [phone] Alk phos 72 40 - 130 Units/L [facility] Comment:Testing performed by : [facility], [address] [place] [phone] ALT 14 7 - 45 Units/L [facility] Comment:Testing performed by : [facility], [address] [place] [phone] AST 23 10 - 45 Units/L [facility] Comment:Testing performed by : [facility], [address] [place] [phone] Blood 11/27/2021 1:08 PM CDT 11/27/2021 1:12 PM CDT us Eren Cr MD LAB BLOOD ORDERABLES Final Re sult [facility] Department [place] [address] * (ABNORMAL) CBC with auto differential (11/27/2021 1:08 PM CDT) WBC 3.4(L) 3.8 - 9.8 K/cumm [facility] Comment:Testing performed by : [facility], [address] [place] [phone] Hgb 10.2(L) 12.1 - 15.1 g/dL [facility] Comment:Testing performed by : [facility], [address] [place], [place] [phone] Hct 28.5(L) 36.1 - 44.3 % [facility] Comment:Testing performed by : [facility], [address] [place] [address] Plt 97(L) 140 - 440 K/cumm [facility] Comment:Testing performed by : [place] [phone] MPV 8.3 6.8 - 10.4 fL [facility] Comment:Testing performed by : [facility], [address] [place] [address] RBC 2.69(L) 3.90 - 5.00 M/cumm [facility] Comment:Testing performed by : [place] [address] MCV 105.8(H) 80.0 - 97.6 fL [facility] Comment:Testing performed by : [facility], [address] [place], [place] [phone] MCH 37.9(H) 26.7 - 33.7 pg [facility] Comment: Result consistent with previously reported values. Testing performed by: [place] [id number] MCHC 35.8(H) 32.7 - 35.5 g/dL [facility] Comment:Testing performed by : [place] [address] RDW CV 18.0(H) 11.8 - 14.6 % [facility] Comment:Testing performed by : [facility], [address] [place], [place] [phone] NRBC abs 0.00 0.00 - 0.01 K/cumm [facility] Comment:Testing performed by : [place] [id number] Blood 11/27/2021 1:08 PM CDT 11/27/2021 1:12 PM CDT Eren Cr MD LAB BLOOD ORDERABLES Final Re sult Performing Organization Address [facility] Co de Phone Number [facility] Department [place] [address] * (ABNORMAL) TSH reflex to free T4 (11/27/2021 1:08 PM CDT) TSH 7.16(H) 0.30 - 4.20 mcIUnit/mL [facility] Blood 11/27/2021 1:08 PM CDT 11/27/2021 2:04 PM CDT Eren Cr MD LAB BLOOD ORDERABLES Final Re sult Performing Organization Address [facility] Co de Phone Number [facility] [employer] [place] [address] * Protein / creatinine ratio, urine, random (11/27/2021 12:33 PM CDT) Protein, ur, quant 19.9 mg/dL [facility] Comment: Interpretive Data No reference range established. Current interpretive data was last revised 2018. Creatinine Ur 191.9 mg/dL [facility] Comment: Interpretive Data No reference range established. Current interpretive data was last revised 2018. 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) Neuroendocrine carcinoma (HCC) Other malignant neoplasm of unspecified site documented in this encounter Discontinued Medications Medication Sig Discontinue Reason Start Date End Da te albuterol HFA (PROVENTIL HFA,VENTOLIN HFA,PROAIR HFA) 90 mcg/actuation inhaler INHALE 1 PUFF BY MOUTH EVERY 4 HOURS 03/24/2021 11/13/2021 denosumab (XGEVA) 120 mg/1.7 mL (70 mg/mL) injection Inject under the skin every 30 (thirty) days 11/13/2021 doxycycline hyclate 100 mg capsule TAKE 1 CAPSULE BY MOUTH EVERY 12 HOURS FOR 10 DAYS 03/24/2021 11/13/2021 everolimus (AFINITOR) 10 mg tablet 10 mg Pt states she is taking every other day. 02/13/21 RW 11/13/2021 gabapentin (NEURONTIN) 600 mg tablet Take 1 tablet (600 mg total) by mouth 3 (three) times a day 09/01/2020 11/13/2021 octreotide (SandoSTATIN) 50 mcg/mL (1 mL) syringe every 30 (thirty) days 04/09/2016 11/13/2021 potassium, sodium phosphates (PHOS-NAK) 280-160-250 mg powder in packet Take 1 packet by mouth 4 (four) times a day 05/24/2021 11/13/2021 documented as of this encounter Orders Appointment Requests Count Last Ordered Date Fi rst Ordered Date ONCBCN INJECTION APPOINTMENT REQUEST 1 12/2021 ONCBCN LAB APPOINTMENT 2 12/11/202111/27 ONCBCN CLINIC APPOINTMENT REQUEST 2 022 11/13/2021 ONCBCN TAKE HOME STUDY DRUG APPT 1 11/28/19 22 documented in this encounter Care Teams Supervisor Major Appliance Assembly Relationship Specialty Start Date End Date Julio César Briseno MD PCP - General 10/01/16 Eren Cr MD Referring Physician Medical Oncology 11/25/18 Yohana Bowen MD Radiation Oncologist Radiation Oncology 11/25/18 Sabrina Willard, CUSTODIAL OFFICER [address] [place] [address] Nurse Practitioner Medical Oncology 08/17/20 11/26/21 documented as of this encounter
--- OUTSIDE RECORDS SUMMARY | 2024-06-25 22:23 | XMS_ITS | Encounter Summary ---
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) Procedures NE DENOSUMAB INJECTION DENOSUMAB (XGEVA) Eren Cr MD [address] [place] [address] Phone: tel: fax: [facility] [address] [facility] Advanced Medicine 7th [place] [address] Phone: tel: Referral ID Status Reason Start Date Expiration Date V isits Requested Visits Authorized [id number] Authorized 03/02/2019 10/06/2024 1 60 Encounter Details Date Type Department Care Team (Latest Contact Info) Description 10/10/2021 10:06 AM CDT - 10/10/2021 12:54 PM CDT Hospital Encounter 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 Gender Identity Not on file Sexual Orientation Straight 02/19/2021 9: 29 AM CDT Occupation Industry Job Start Date Job End Date retired Not on file Not on file Not on file documented as of this encounter Last Filed Vital Signs Vital Sign Reading Time Taken Comments Blood Pressure 146/73 10/10/2021 12:30 PM CDT Pulse 63 10/10/2021 12:30 PM CDT Temperature 36.3 ??C (97.3 ??F) 10/10/2021 10:12 AM C DT Respiratory Rate 16 10/10/2021 12:30 PM CDT Oxygen Saturation 98% 10/10/2021 12:30 PM CDT Inhaled Oxygen Concentration - - Weight 76.4 kg (168 lb 6.4 oz) 10/10/2021 10:25 AM CDT Height - - Body Mass Index 30.71 07/17/2021 2:15 PM HYDROELECTRIC PLANT OPERATOR documented in this encounter Discharge Diagnoses Diagnosis Other malignant neuroendocrine tumors (HCC) - OTHER MALIGNANT NEUROENDOCRINE TUMORS Secondary malignant neoplasm of bone (CMS/HCC) (HCC) - SECONDARY MALIGNANT NEOPLASM OF BONE documented in this encounter Discharge Instructions * Patient Instructions* Hola Heredia, IRV[place] - 10/10/2021 12:12 PM CDT .After 4:30 PM during the week, on weekends and holidays, call [phone] and ask to have the Port Traffic Manager Physician paged for you. Saturday through Saturday, 8 AM to 4:30 PM, call [phone] [facility] Oncology Physician at [facility] and ask for a member of your [...] with simethicone-diphen hydramine-lidocain e (MAGIC MOUTHWASH) suspension [id number]:N euro-endocrine carcinoma (HCC),Oral mucositis Swish and swallow 10 mL every 4 (four) hours as needed (oral mucositis) 240 mL 2 09/19/2021 2 albuterol HFA (PROVENTIL HFA,VENTOLIN HFA,PROAIR HFA) 90 mcg/actuation inhaler INHALE 1 PUFF BY MOUTH EVERY 4 HOURS 03/24/2021 2 ascorbic acid, vitamin C, 500 mg capsuleIndications :supplement Take 1 tablet by mouth director of analytical development before breakfast 07/04/2016 4 cholecalciferol (VITAMIN D-3) 2,000 unit capsule Take 1 capsule (2,000 Units total) by mouth daily 30 capsule 2 04/25/2019 3 cholestyramine (QUESTRAN) 4 gram packet Take 1 packet by mouth 3 (three) times a day with meals 270 packet 3 09/04/2019 2 clotrimazole-betam ethasone (LOTRISONE) cream Apply 1 Application topically daily as needed (rash) 4 coenzyme X65-acesfxk E 100-5 mg-unit capsuleIndications :supplement Take 1 tablet by mouth director of analytical development before breakfast 4 denosumab (XGEVA) 120 mg/1.7 [...] dose).?? Avoid Jas's Wort, grapefruit products and [place] oranges while on treatment. placed on hold [...] in this encounter Nursing Notes * Vivian Hdz, RN - 10/10/2021 12:49 PM CDT Patient seen in [facility] today for IVF,port accessed per policy. patient tolerated treatment well. vss. port deaccessed per policy. Slight white-jon yellow discharge leaked out while deaccessing patient port. Looked at by clinic BRAKESHOE REPAIRER, Carleen Espinosa. Patient has some tenderness- could be r/t recent placement. No redness, warmth, inflammation, irritation noted. Unable to express more discharge from port site. Pt ok to discharge per BRAKESHOE REPAIRER, patient instructed on s/s of infection and when to call their doctor.Education completed and patient verbalized understanding. AVS printed. Discharged ambulatory. documented in this encounter Plan of Treatment [...] mL/hr, Administer over 2 Hours, Once, On Sat10/10/21 at 1045, For 1 doseIndications:Bone metastasis,Neuro-endocrine carcinoma (HCC) New Bag 10/10/2021 10:27 AM CDT 1,000 mL 500 mL/hr documented in this encounter Active and Recently Administered Medications Times are shown in CDT. Scheduled Medication Order 10/08/2021 10/09/2021 10/10/2021 sodium chloride 0.9% bolus 1,000 mL (COMPLETED) 1,000 mL, intravenous, at 500 mL/hr, Administer over 2 Hours, Once, On Sat10/10/21 at 1045, For 1 dose 1027 (New Bag - Prov ider: Vivian Hdz RN)1233 (Stopped - Provider: Lynsey Renee RN) documented in this encounter Orders Medications Ordered That Brett ht Not Have Been Administered Count Last Ordered Date First Ordered Date sodium chloride 0.9% bolus 1,000 mL 1 10/10 Appointment Requests Count Last Ordered Date Fi rst Ordered Date ONCBCN INFUSION APPT REQUEST 1 10/10/2021 documented in this encounter Care Teams Chief Petroleum Engineer Relationship Specialty Start Date End Date Julio César Briseno MD PCP - General 10/01/16 Eren Cr MD Referring Physician Medical Oncology 11/25/18 Yohana Bowen MD Radiation Oncologist Radiation Oncology 11/25/18 Sabrina Willard NP [address] [place] [address] Nurse Practitioner Medical Oncology 08/17/20 11/26/21 documented as of this encounter
--- OUTSIDE RECORDS SUMMARY | 2024-06-25 22:23 | XMS_ITS | Encounter Summary ---
Author Organization [facility] Address [address] [place] [address] Phone Care Team Providers Care Corral Boss Name Role Phone Julio César Briseno MD Primary Care Provider [phone] Eren Cr MD Unavailable Yohana Bowen MD Unavailable Sabrina Willard NP Unavailable Encounter Details Date Type Department Care Team (Late st Contact Info) Description 09/19/2021 Orders Only [facility] On[facility] [address] [facility] Advanced Medicine 7th [place] [address] [place] [address] Eren Cr MD [address] [facility] [address] [place] [address] Neuro-endocrine carcinoma (CMS/HCC) (HCC) (Primary Dx); Oral mucositis Social History Tobacco Use Types Packs/Day Years [...] on file 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 Gender Identity Not on file Sexual Orientation Straight 02/19/2021 9: 29 AM CDT Occupation Industry Job Start Date Job End Date retired Not on file Not on file Not on file documented as of this encounter Ordered Prescriptions Prescription Sig Dispense Quantity Refills Last Filled Start Date End Date lidocaine-prilocai ne (lidocaine-priloca ine) creamIndications:N euro-endocrine carcinoma (HCC) Apply topically as needed for pain Apply a generous amount topically to port site 1 hour prior to lab/treatment, do not rub in, and cover with non absorbant dressing 30 g 3 09/19/2021 al & mag hydroxide with simethicone-diphen hydramine-lidocain e (MAGIC MOUTHWASH) suspension [id number]:N euro-endocrine carcinoma (HCC),Oral mucositis Swish and swallow 10 mL every 4 (four) hours as needed (oral mucositis) 240 mL 2 09/19/2021 2 documented in this encounter Plan of Treatment Not on file documented as of this encounter Visit Diagnoses Diagnosis Neuro-endocrine carcinoma (HCC)- Primary Other malignant neoplasm of unspecified site Oral mucositis documented in this encounter Orders Appointment Requests Count Last Ordered Date Fi rst Ordered Date ONCBCN INFUSION APPT REQUEST 1 09/26/2021 documented in this encounter Care Teams Corral Boss Relationship Specialty Start Date End Date Julio César Briseno MD PCP - General 10/01/16 Eren Cr MD Referring Physician Medical Oncology 11/25/18 Yohana Bowen MD Radiation Oncologist Radiation Oncology 11/25/18 Sabrina Willard NP [address] [facility] [address] [place] [address] Nurse Practitioner Medical Oncology 08/17/20 11/26/21 documented as of this encounter
--- OUTSIDE RECORDS SUMMARY | 2024-06-25 22:23 | XMS_ITS | Encounter Summary ---
Author Organization [facility] Address [address] [place] [address] Phone Care Team Providers Care Trouble Clerk Name Role Phone Julio César Briseno MD Primary Care Provider Eren Cr MD Unavailable [phone] Yohana Bowen MD Unavailable Sabrina Willard NP Unavailable [phone] Encounter Details Date Type Department Care Team (Late st Contact Info) Description 09/25/2021 Orders Only 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 Gender Identity Not on file Sexual Orientation Straight 02/19/2021 9: 29 AM CDT Occupation Industry Job Start Date Job End Date retired Not on file Not on file Not on file documented as of this encounter Plan of Treatment Not on file documented as of this encounter Visit Diagnoses Not on filedocumented in this encounter Care Teams Trouble Clerk Relationship Specialty Start Date End Date Julio César Briseno MD PCP - General 10/01/16 Eren Cr MD Referring Physician Medical Oncology 11/25/18 Yohana Bowen MD Radiation Oncologist Radiation Oncology 11/25/18 Sabrina Willard NP [address] [place] [address] Nurse Practitioner Medical Oncology 08/17/20 11/26/21 documented as of this encounter
--- OUTSIDE RECORDS SUMMARY | 2024-06-25 22:23 | XMS_ITS | Encounter Summary ---
Author Organization [facility] Address [address] [place] [address] Care Team Providers Care Metal Sponge Making Machine Operator Name Role Phone Julio César Briseno MD Primary Care Provider [phone] Eren Cr MD Unavailable [phone] Yohana Bowen MD Unavailable Sabrina Willard NP Unavailable [phone] Encounter Details Date Type Department Care Team (Latest Contact Info) Description 11/13/2021 12:22 PM CDT - 11/13/2021 5:07 PM CDT Hospital Encounter [facility] ([facility]) [address] [place] [phone] Neuroendocrine carcinoma (CMS/HCC) (HCC); Malignant neoplasm metastatic [...] on file 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 Gender Identity Not on file Sexual [...] capsuleIndications :supplement Take 1 tablet by mouth recovery analyst before breakfast 07/04/2016 4 cholecalciferol (VITAMIN D-3) 2,000 unit capsule Take 1 capsule (2,000 Units total) by mouth daily 30 capsule 2 04/25/2019 3 cholestyramine (QUESTRAN) 4 gram packet Take 1 packet by mouth 3 (three) times a day with meals 270 packet 3 09/04/2019 2 clotrimazole-betam ethasone (LOTRISONE) cream Apply 1 Application topically daily as needed (rash) 4 coenzyme [id number] E 100-5 mg-unit capsuleIndications :supplement Take 1 tablet by mouth recovery analyst before breakfast 4 diphenoxylate-atro pine (LOMOTIL) 2.5-0.025 [...] and 1 hour after each dose).?? Avoid [place]'s Wort, grapefruit products and [place] oranges while on treatment. placed on [...] PROTEIN / CREATININE RATIO, URINE, RANDOM STAT 11/13/2021 1:30 PM CDT Neuro-endocrine carcinoma (CMS/HCC) (HCC) MORPHOLOGIC SCREEN Routine 11/13/2021 1: 05 PM CDT 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) EGFR STAT 11/13/2021 1:05 PM CDT 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) DIFFERENTIAL AUTO Routine 11/13/2021 1:0 5 PM CDT 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) THYROID FUNCTION CASCADE Routine 11/13/2021 1:05 PM CDT Neuro-endocrine carcinoma (CMS/HCC) (HCC) CHROMOGRANIN A Routine 11/13/2021 1:05 PM CDT 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) CBC WITH AUTO DIFFERENTIAL Routine 11/13/2021 1:05 PM CDT 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) VITAMIN D 25 HYDROXY Routine 11/13/2021 1:05 PM CDT 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) T4, FREE Routine 11/13/2021 1:05 PM CDT Neuro-endocrine carcinoma (CMS/HCC) (HCC) PHOSPHORUS Routine 11/13/2021 1:05 PM CDT 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) MAGNESIUM STAT 11/13/2021 1:05 PM CDT Neuro-endocrine carcinoma (CMS/HCC) (HCC) LIPID PANEL Routine 11/13/2021 1:05 PM CDT 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) COMPREHENSIVE METABOLIC PANEL STAT 11/13/2021 1:05 PM CDT 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) documented in this encounter Results * Protein / creatinine ratio, urine, random (11/13/2021 1:30 PM CDT) Pathologist [facility] Protein, ur, quant 71.3 mg/dL [facility] Comment: Interpretive Data No reference range established. Current interpretive data was last revised 2018. Creatinine Ur 519.7 mg/dL [facility] Comment: Interpretive Data No reference range established. Current interpretive data was last revised 2018. Protein/creatinin e ratio 137.2 0.0 - 180.0 mg/g CR [facility] Urine 11/13/2021 1:30 PM CDT 11/13/2021 1:43 PM CDT us Eren Cr MD LAB URINE ORDERABLES Final Re sult [facility] [place] [address] * (ABNORMAL) T4, free (11/13/2021 1:05 PM CDT) Pathologist [facility] Free T4 0.70(L) 0.90 - 1.70 ng/dL [facility] Blood 11/13/2021 1:05 PM CDT 11/13/2021 2:04 PM CDT Narrative [facility] - 11/13/2021 3:14 PM CDT This test was reflexed from a TSH result. us Eren Cr MD LAB BLOOD ORDERABLES Edited R esult - Final [facility] Department [place] [address] * (ABNORMAL) eGFR (11/13/2021 1:05 PM CDT) eGFR 46(L) 90 - 130 mL/min/1. 73 m2 [facility] Comment: Interpretive Data Reference Interval Normal [...] was last reviewed 2021. Testing performed by: [facility], [address] [place] [phone] Blood 11/13/2021 1:05 PM CDT 11/13/2021 1:09 PM CDT Eren Cr MD LAB BLOOD ORDERABLES Final Re sult Performing Organization Address City/[facility]/ZIP Co de Phone Number [facility] [place] [address] * Morphologic screen (11/13/2021 1:05 PM CDT) Morphologic Screen Original results obtained required verification by peripheral smear. [facility] Blood 11/13/2021 1:05 PM CDT 11/13/2021 1:09 PM CDT Eren Cr MD LAB BLOOD ORDERABLES Final Re sult Performing Organization Address [facility] de Phone Number [facility] Department [place] [address] * (ABNORMAL) Differential, auto (11/13/2021 1:05 PM CDT) Neutrophil abs 2.8 1.8 - 6.6 K/cumm [facility] Comment:Testing performed by : [facility], [address] [place] [phone] Lymphocyte abs 0.5(L) 1.2 - 3.3 K/cumm [facility] Comment:Testing performed by : [facility], [address] [place] [phone] Monocyte abs 0.3 0.2 - 1.2 K/cumm [facility] Comment:Testing performed by : [facility], [address] [place] [phone] Eosinophil abs 0.5 0.0 - 0.5 K/cumm [facility] Comment:Testing performed by : [facility], [address] [place] [phone] Basophil abs 0.0 0.0 - 0.2 K/cumm [facility] Comment:Testing performed by : [facility], [address] [place] [phone] Neutrophil pct 66.8 % [facility] Comment: Interpretive Data Percent cell count reference ranges are not reported, since discordance with absolute values may lead to misinterpretation of CBC data. Current Interpretive Data was last revised on 2017. Testing performed by: [facility], [address] [place] [phone] Lymphocyte pct 12.7 % [facility] Comment: Interpretive Data Percent cell count reference ranges are not reported, since discordance with absolute values may lead to misinterpretation of CBC data. Current Interpretive Data was last revised on 2017. Testing performed by: [facility], [address] [place] [phone] Monocyte pct 7.2 % [facility] Comment:Testing performed by : [facility], [address] [place] [phone] Eosinophil pct 12.6 % [facility] Comment:Testing performed by : [facility], [address] [place] [phone] Basophil pct 0.7 % [facility] Comment:Testing performed by : [facility], [address] [place] [phone] Blood 11/13/2021 1:05 PM CDT 11/13/2021 1:09 PM CDT Eren Cr MD LAB BLOOD ORDERABLES Final Re sult [facility] Department [place] [address] * (ABNORMAL) Magnesium (11/13/2021 1:05 PM CDT) Magnesium 1.1(L) 1.4 - 2.5 mg/dL [facility] Comment:Testing performed by : [facility], [address] [place] [phone] Blood 11/13/2021 1:05 PM CDT 11/13/2021 1:09 PM CDT Eren Cr MD LAB BLOOD ORDERABLES Final Re sult Performing Organization Address [facility] de Phone Number [facility] [place] [address] * (ABNORMAL) TSH reflex to free T4 (11/13/2021 1:05 PM CDT) TSH 16.00(H) 0.30 - 4.20 mcIUnit/mL [facility] Blood 11/13/2021 1:05 PM CDT 11/13/2021 1:57 PM CDT Eren Cr MD LAB BLOOD ORDERABLES Final Re sult Performing Organization Address [facility] de Phone Number [facility] [place] [address] * (ABNORMAL) Lipid panel (11/13/2021 1:05 PM CDT) Cholesterol 177 30 - 199 mg/dL [facility] [...] revised on 2018. Triglycerides 174(H) <=149 mg/dL [facility] Comment: Interpretive Data Ages < or [...] revised on 2018. HDL 55 >=40 mg/dL [facility] Comment: [...] 2018. LDL, calculated 87 <=129 mg/dL [facility] Comment: Interpretive Data Ages < or [...] revised on 2018. Non-HDL Cholesterol 122 mg/dL [facility] Comment: Interpretive [...] revised on 2018. Chol/HDL ratio 3 [facility] Blood 11/13/2021 1:05 PM CDT 11/13/2021 1:57 PM CDT Eren Cr MD LAB BLOOD ORDERABLES Final Re sult Performing Organization Address [facility] Co de Phone Number [facility] Department [place] [address] * Phosphorus (11/13/2021 1:05 PM CDT) Phosphorus, pl 2.5 2.3 - 4.5 mg/dL [facility] Comment:Testing performed by : [facility], [address] [place] [phone] Blood 11/13/2021 1:05 PM CDT 11/13/2021 1:09 PM CDT Eren Cr MD LAB BLOOD ORDERABLES Final Re sult [facility] Department [place] [address] * (ABNORMAL) Vitamin D 25 hydroxy (11/13/2021 1:05 PM CDT) [facility] Vitamin D 25-OH 22(L) 30 - 80 ng/mL [facility] Blood 11/13/2021 1:05 PM CDT 11/13/2021 1:57 PM CDT Eren Cr MD LAB BLOOD ORDERABLES Final Re sult Performing Organization Address [facility] Co de Phone Number [facility] Department [place] [address] * (ABNORMAL) CBC with auto differential (11/13/2021 1:05 PM CDT) [facility] WBC 4.2 3.8 - 9.8 K/cumm [facility] Comment:Testing performed by : [facility], [address] [place] [phone] Hgb 11.1(L) 12.1 - 15.1 g/dL [facility] Comment:Testing performed by : [facility], [address] [place] [phone] Hct 32.0(L) 36.1 - 44.3 % [facility] Comment:Testing performed by : [facility], [address] [place] [phone] Plt 110(L) 140 - 440 K/cumm [facility] Comment:Testing performed by : [facility], [address] [place] [phone] MPV 9.1 6.8 - 10.4 fL [facility] Comment:Testing performed by : [facility], [address] [place] [phone] RBC 3.15(L) 3.90 - 5.00 M/cumm [facility] Comment:Testing performed by : [facility], [address] [place] [phone] MCV 101.6(H) 80.0 - 97.6 fL [facility] Comment:Testing performed by : [facility], [address] [place] [phone] MCH 35.1(H) 26.7 - 33.7 pg [facility] Comment:Testing performed by : [facility], [address] [place] [phone] MCHC 34.6 32.7 - 35.5 g/dL [facility] Comment:Testing performed by : [facility], [address] [place] [phone] RDW CV 21.1(H) 11.8 - 14.6 % [facility] Comment:Testing performed by : [facility], [address] [place] [phone] NRBC abs NA 0.00 - 0.01 K/cumm [facility] Comment:Testing performed by : [facility], [address] [place] [phone] Blood 11/13/2021 1:05 PM CDT 11/13/2021 1:09 PM CDT us Eren Cr MD LAB BLOOD ORDERABLES Final Re sult [facility] Department [place] [address] * (ABNORMAL) Comprehensive metabolic panel (11/13/2021 1:05 PM CDT) Sodium 142 135 - 145 mmol/L [facility] Comment:Testing performed by : [facility], [address] [place] [phone] Potassium, pl 3.6 3.3 - 4.9 mmol/L [facility] Comment:Testing performed by : [facility], [address] [place] [phone] Chloride 105 97 - 110 mmol/L [facility] Comment:Testing performed by : [facility], [address] [place] [phone] CO2 27 22 - 32 mmol/L [facility] Comment:Testing performed by : [facility], [address] [place] [phone] Anion gap 11 2 - 15 mmol/L [facility] Comment:Testing performed by : [facility], [address] [place] [phone] BUN 15 8 - 25 mg/dL [facility] Comment:Testing performed by : [facility], [address] [place] [phone] Creatinine 1.25(H) 0.60 - 1.10 mg/dL [facility] Comment:Testing performed by : [facility], [address] [place] [phone] Glucose 141 70 - 199 mg/dL [facility] [...] was last revised 2017. Testing performed by: [facility], [address] [place] [phone] Calcium 10.6(H) 8.5 - 10.3 mg/dL [facility] Comment:Testing performed by : [facility], [address] [place] [phone] Bilirubin, total 0.7 0.1 - 1.2 mg/dL [facility] Comment:Testing performed by : [facility], [address] [place] [phone] Protein, pl 6.2(L) 6.5 - 8.5 g/dL [facility] Comment:Testing performed by : [address] [phone] Albumin 4.0 3.5 - 5.0 g/dL [facility] Comment:Testing performed by : [address] [phone] Alk phos 82 40 - 130 Units/L [facility] Comment:Testing performed by : [facility], [address] [facility] [phone] ALT 25 7 - 45 Units/L [facility] Comment:Testing performed by : [facility], [address] [facility] [phone] AST 38 10 - 45 Units/L [facility] Comment:Testing performed by : [facility], [address] [place] [phone] Blood 11/13/2021 1:05 PM CDT 11/13/2021 1:09 PM CDT Eren Cr MD LAB BLOOD ORDERABLES Final Re sult [facility] Department [place] [address] * (ABNORMAL) Chromogranin A (11/13/2021 1:05 PM CDT) Chromogranin A 653(H) <93 ng/mL [facility] Comment: Impaired renal or hepatic function or treatment with proton pump inhibitors may result in artifactual elevations of Chromogranin A. ADDITIONAL INFORMATION This test was developed and its performance characteristics determined by [facility] in a manner consistent with [...] a homogeneous time-resolved immunofluorescent assay manufactured by [employer] and performed on the [employer] Compact Plus. ? Values obtained with different assay methods or kits may be different and cannot be used interchangeably. ? Test results cannot be interpreted as absolute evidence for the presence or absence of malignant disease. Test Performed by: [facility] [address] [place] [address] Perl Developer: Immanuel Novak M.D. Ph.D.; CLIA# [id number] Blood 11/13/2021 1:05 PM CDT 11/13/2021 5:06 PM CDT us Eren Cr MD LAB BLOOD ORDERABLES Final Re sult [facility] Department [place] [address] documented in this encounter Visit Diagnoses Diagnosis Neuroendocrine carcinoma (HCC) Other malignant neoplasm of unspecified site Malignant neoplasm metastatic to liver (HCC) Neuro-endocrine carcinoma (HCC) Other malignant neoplasm of unspecified site documented in this encounter Care Teams Metal Sponge Making Machine Operator Relationship Specialty Start Date End Date Julio César Briseno MD PCP - General 10/01/16 Eren Cr MD Referring Physician Medical Oncology 11/25/18 Yohana Bowen MD Radiation Oncologist Radiation Oncology 11/25/18 Sabrina Willard NP [address] [place] [address] Nurse Practitioner Medical Oncology 08/17/20 11/26/21 documented as of this encounter
--- OUTSIDE RECORDS SUMMARY | 2024-06-25 22:23 | XMS_ITS | Encounter Summary ---
Author Organization [facility] Address [address] [place] [address] Phone Care Team Providers Care Evp Marketing Name Role Phone Julio César Briseno MD Primary Care Provider [phone] Eren Cr MD Unavailable Yohana Bowen MD Unavailable Sabrina Willard NP Unavailable [phone] Encounter Details Date Type Department Care Team (Late st Contact Info) Description 10/12/2021 Orders Only [facility] Oncology [address] 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
--- OUTSIDE RECORDS SUMMARY | 2024-06-25 22:23 | XMS_ITS | Encounter Summary ---
Author Organization [facility] Address [address] [place] [address] Phone Care Team Providers Care Target Protection Specialist Name Role Phone Julio César Briseno MD Primary Care Provider [phone] Eren Cr MD Unavailable Yohana Bowen MD Unavailable Sabrina Willard NP Unavailable [phone] Encounter Details Date Type Department Care Team (Late st Contact Info) Description 10/12/2021 Orders Only [facility] Oncology [address] [facility] Advanced Medicine 7th [place] [address] [place] [phone] Eren Cr MD [address] [facility] [address] [place] [address] Social History Tobacco Use Types Packs/Day Years [...] on filedocumented in this encounter Care Teams Target Protection Specialist Relationship Specialty Start Date End Date Julio César Briseno MD PCP - General 10/01/16 Eren Cr MD Referring Physician Medical Oncology 11/25/18 Yohana Bowen MD Radiation Oncologist Radiation Oncology 11/25/18 Sabrina Willard NP [address] [place] [address] Nurse Practitioner Medical Oncology 08/17/20 11/26/21 documented as of this encounter
--- OUTSIDE RECORDS SUMMARY | 2024-06-25 22:24 | XMS_ITS | Encounter Summary ---
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 phase III cabozantinib Eren Cr MD [address] [facility] [address] [place] [address] Phone: tel: fax: [facility] [address] [facility] Advanced Medicine 7th [place] [address] Phone: tel: Referral ID Status Reason Start Date Expiration Date Visits Re quested Visits Authorized [id number] Closed 06/21/2021 06/26/2024 1 99 Encounter Details Date Type Department Care Team (Late st Contact Info) Description 08/21/2021 9:15 AM COMBINER Lab [facility] [address] [facility] 7th [place] [address] [place] [id number] Neuro-endocrine carcinoma (CMS/HCC) (HCC); Neuroendocrine carcinoma (CMS/HCC) [...] on file Legal Sex Female 2:41 PM COMBINER Gender Identity Not on file Sexual Orientation Straight 02/19/2021 9: 29 AM CDT Occupation Industry Job Start Date Job End Date retired Not on file Not on file Not on file documented as of this encounter Plan of Treatment Not on file documented as of this encounter Procedures Procedure Name Priority Date/Time Associated Diagnosis Comments CHROMOGRANIN A Routine 08/21/2021 9:22 AM COMBINER 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) EGFR STAT 08/21/2021 9:18 AM COMBINER Neuro-endocrine carcinoma (CMS/HCC) (HCC) DIFFERENTIAL AUTO STAT 08/21/2021 9:1 8 AM COMBINER Neuro-endocrine carcinoma (CMS/HCC) (HCC) CBC WITH AUTO DIFFERENTIAL STAT 08/21/2021 9:18 AM COMBINER Neuro-endocrine carcinoma (CMS/HCC) (HCC) VITAMIN D 25 HYDROXY Routine 08/21/2021 9:18 AM COMBINER 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) PHOSPHORUS STAT 08/21/2021 9:18 AM COMBINER Neuro-endocrine carcinoma (CMS/HCC) (HCC) MAGNESIUM STAT 08/21/2021 9:18 AM COMBINER Neuro-endocrine carcinoma (CMS/HCC) (HCC) LIPID PANEL Routine 08/21/2021 9:18 AM COMBINER 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 ADDITIONAL INFORMATION This test was developed and its performance characteristics determined by [facility] in a manner consistent with CLIA requirements. This test has not been cleared or approved by the U.S. Food and Drug Administration. The testing method is a homogeneous time-resolved immunofluorescent assay manufactured by [employer] and performed on the [employer] Kryptor Compact Plus. ? Values obtained with different assay methods or kits may be different and cannot be used interchangeably. ? Test results cannot be interpreted as absolute evidence for the presence or absence of malignant disease. Test Performed by: [facility] [place] [id number] [place] [address] Volleyball Assembler: Immanuel Novak M.D. Ph.D.; CLIA# [id number] Blood 08/21/2021 9:22 AM COMBINER 08/21/2021 10:06 AM COMBINER Joelle Eugene JEWEL CORNER BRUSHING MACHINE OPERATOR LAB BLOOD ORDERABLES Fi nal Result JASON BL[facility] [place] Department [place] [address] * (ABNORMAL) eGFR (08/21/2021 9:18 AM COMBINER) eGFR 49(L) 90 - 130 mL/min/1. [address] [facility] Comment: Interpretive Data Reference Interval Normal [...] was last reviewed 2021. Testing performed by: [facility], [address] [place] [phone] Blood 08/21/2021 9:18 AM COMBINER 08/21/2021 9:20 AM COMBINER Joelle Eugene NP LAB BLOOD ORDERABLES Fi nal Result [facility] [place] Department [place] [address] * (ABNORMAL) Differential, auto (08/21/2021 9:18 AM COMBINER) Neutrophil abs 2.3 1.8 - 6.6 K/cumm [facility] Comment:Testing performed by : [facility], [address] [place] [phone] Lymphocyte abs 0.6(L) 1.2 - 3.3 K/cumm [facility] Comment:Testing performed by : [facility], [address] [place] [phone] Monocyte abs 0.2 0.2 - 1.2 K/cumm [facility] Comment:Testing performed by : [facility], [address] [place] [phone] Eosinophil abs 0.1 0.0 - 0.5 K/cumm [facility] Comment:Testing performed by : [facility], [address] [place] [phone] Basophil abs 0.0 0.0 - 0.2 K/cumm [facility] Comment:Testing performed by : [facility], [address] [place] [phone] Neutrophil pct 71.8 % [facility] Comment: Interpretive Data Percent cell count reference ranges are not reported, since discordance with absolute values may lead to misinterpretation of CBC data. Current Interpretive Data was last revised on 2017. Testing performed by: [facility], [address] [place] [phone] Lymphocyte pct 17.5 % [facility] Comment: Interpretive Data Percent cell count reference ranges are not reported, since discordance with absolute values may lead to misinterpretation of CBC data. Current Interpretive Data was last revised on 2017. Testing performed by: [facility], [address] [place] [phone] Monocyte pct 6.4 % [facility] Comment:Testing performed by : [facility], [address] [place] [phone] Eosinophil pct 3.5 % [facility] Comment:Testing performed by : [facility], [address] [place] [phone] Basophil pct 0.8 % [facility] Comment:Testing performed by : [facility], [address] [place] [phone] Blood 08/21/2021 9:18 AM COMBINER 08/21/2021 9:20 AM COMBINER us Joelle Eugene JEWEL CORNER BRUSHING MACHINE OPERATOR LAB BLOOD ORDERABLES Fi nal Result [facility] [place] Department [place] [address] * (ABNORMAL) CBC with auto differential (08/21/2021 9:18 AM COMBINER) WBC 3.1(L) 3.8 - 9.8 K/cumm J[facility]ON [facility] Comment:Testing performed by : [address] [phone] Hgb 15.5(H) 12.1 - 15.1 g/dL [facility] Comment:Testing performed by : [facility], [address] [place] [phone] Hct 43.2 36.1 - 44.3 % [facility] Comment:Testing performed by : [address] [address] Plt 99(L) 140 - 440 K/cumm [facility] Comment:Testing performed by : [address] [phone] MPV 8.8 6.8 - 10.4 fL [facility] Comment:Testing performed by : [facility], [address] [place] [phone] RBC 4.96 3.90 - 5.00 M/cumm [facility] Comment:Testing performed by : [address] [phone] MCV 87.0 80.0 - 97.6 fL [facility] Comment:Testing performed by : [address] [address] MCH 31.2 26.7 - 33.7 pg [facility] Comment:Testing performed by : [facility], [address] [place] [phone] MCHC 35.8(H) 32.7 - 35.5 g/dL [facility] Comment:Testing performed by : [facility], [address] [place] [phone] RDW CV 13.8 11.8 - 14.6 % [facility] Comment:Testing performed by : [facility], [address] [place] [phone] NRBC abs 0.08(H) 0.00 - 0.01 K/cumm [facility] Comment:Testing performed by : [facility], [address] [place] [phone] Blood 08/21/2021 9:18 AM COMBINER 08/21/2021 9:20 AM COMBINER Joelle Eugene JEWEL CORNER BRUSHING MACHINE OPERATOR LAB BLOOD ORDERABLES Fi nal Result Performing Organization Address City/State/[facility] Co de Phone Number JASON BLACK [facility] [place] Department [place] [address] * (ABNORMAL) Comprehensive metabolic panel (08/21/2021 9:18 AM COMBINER) Sodium 138 135 - 145 mmol/L JASON BLACK Comment:Testing performed by : [facility], [address] [place] [phone] Potassium, pl 4.1 3.3 - 4.9 mmol/L JASON BLACK Comment:Testing performed by : [facility], [address] [place] [phone] Chloride 102 97 - 110 mmol/L [facility] BL[facility] Comment:Testing performed by : [facility], [address] [place] [phone] CO2 25 22 - 32 mmol/L [facility]ON BL[facility] Comment:Testing performed by : [facility], [address] [place] [phone] Anion gap 11 2 - 15 mmol/L [facility]ON BLACK Comment:Testing performed by : [facility], [address] [place] [phone] BUN 16 8 - 25 mg/dL J[facility]ON [facility] Comment:Testing performed by : [facility], [address] [place] [phone] Creatinine 1.19(H) 0.60 - 1.10 mg/dL [facility] Comment:Testing performed by : [facility], [address] [place] [phone] Glucose 129 70 - 199 mg/dL CERNER [...] was last revised 2017. Testing performed by: [facility], [address] [place] [phone] Calcium 10.9(H) 8.5 - 10.3 mg/dL [facility] Comment:Testing performed by : [address] [address] Bilirubin, total 0.8 0.1 - 1.2 mg/dL [facility] Comment:Testing performed by : [address] [address] Protein, pl 6.8 6.5 - 8.5 g/dL [facility] Comment:Testing performed by : [address] [address] Albumin 4.2 3.5 - 5.0 g/dL [facility] Comment:Testing performed by : [address] [phone] Alk phos 106 40 - 130 Units/L [facility]ERMINNIE [facility] Comment:Testing performed by : [place] [phone] ALT 33 7 - 45 Units/L [facility]ER [facility] Comment:Testing performed by : [address] [phone] AST 45 10 - 45 Units/L [facility] Comment:Testing performed by : [facility], [address] [place] [phone] Blood 08/21/2021 9:18 AM COMBINER 08/21/2021 9:20 AM COMBINER Joelle Eugene JEWEL CORNER BRUSHING MACHINE OPERATOR LAB BLOOD ORDERABLES Fi nal Result Performing Organization Address City/[facility]/ZIP Co de Phone Number [facility] [place] [address] * Magnesium (08/21/2021 9:18 AM COMBINER) Magnesium 1.4 1.4 - 2.5 mg/dL [facility] Comment:Testing performed by : [facility], [address] [place] [phone] Blood 08/21/2021 9:18 AM COMBINER 08/21/2021 9:20 AM COMBINER Joelle Eugene JEWEL CORNER BRUSHING MACHINE OPERATOR LAB BLOOD ORDERABLES Fi nal Result Performing Organization Address [facility] Co de Phone Number [facility] [place] [address] * Phosphorus (08/21/2021 9:18 AM COMBINER) Phosphorus, pl 2.9 2.3 - 4.5 mg/dL [facility] Comment:Testing performed by : [facility], [address] [place] [phone] Blood 08/21/2021 9:18 AM COMBINER 08/21/2021 9:20 AM COMBINER Joelle Eugene JEWEL CORNER BRUSHING MACHINE OPERATOR LAB BLOOD ORDERABLES Fi nal Result Performing Organization Address City/[facility]/ZIP Co de Phone Number [facility] [place], [place] [id number] * (ABNORMAL) Lipid panel (08/21/2021 9:18 AM COMBINER) [facility] Signature Cholesterol 187 30 - 199 mg/dL [facility] Comment: Interpretive Data Ages < or [...] Data was last revised on 2018. Triglycerides 226(H) <=149 mg/dL [facility] Comment: Interpretive Data Ages < or [...] Data was last revised on 2018. HDL 67 >=40 mg/dL JASON BLACK Comment: Interpretive Data [...] on 2018. LDL, calculated 75 <=129 mg/dL [facility] Comment: [...] revised on 2018. Non-HDL Cholesterol 120 mg/dL [facility] Comment: Interpretive [...] ratio 3 [facility] Blood 08/21/2021 9:18 AM COMBINER 08/21/2021 9:57 AM COMBINER Joelle Eugene JEWEL CORNER BRUSHING MACHINE OPERATOR LAB BLOOD ORDERABLES Fi nal Result Performing Organization Address City/[facility] Co de Phone Number [facility] [place] [address] * (ABNORMAL) Vitamin D 25 hydroxy (08/21/2021 9:18 AM COMBINER) Vitamin D 25-OH 27(L) 30 - 80 ng/mL [facility] Blood 08/21/2021 9:18 AM COMBINER 08/21/2021 9:57 AM COMBINER Joelle Eugene JEWEL CORNER BRUSHING MACHINE OPERATOR LAB BLOOD ORDERABLES Fi nal Result Performing Organization Address [facility] de Phone Number [facility] [place] [address] documented in this encounter Visit Diagnoses Diagnosis Neuro-endocrine carcinoma (HCC) Other malignant neoplasm of unspecified site Neuroendocrine carcinoma (HCC) Other malignant neoplasm of unspecified site Malignant neoplasm metastatic to liver (HCC) documented in this encounter Orders Lab Orders Without Results Count Last Ordered D ate First Ordered Date ONCBCN STUDY LAB 1 1 08/21/2021 Appointment Requests Count Last Ordered Date Fi rst Ordered Date ONCBCN LAB APPOINTMENT 1 08/21/2021 documented in this encounter Care Teams Tour Manager Relationship Specialty Start Date End Date Julio César Briseno MD PCP - General 10/01/16 Eren Cr MD Referring Physician Medical Oncology 11/25/18 Yohana Bowen MD Radiation Oncologist Radiation Oncology 11/25/18 Sabrina Willard NP [address] [place] [address] Nurse Practitioner Medical Oncology 08/17/20 11/26/21 documented as of this encounter
--- OUTSIDE RECORDS SUMMARY | 2024-06-25 22:24 | XMS_ITS | Encounter Summary ---
Author Organization [facility] Address [address] [place] [address] Phone Care Team Providers Care Application Programmer Analyst Name Role Phone Julio César Briseno MD Primary Care Provider Eren Cr MD Unavailable [phone] Yohana Bowen MD Unavailable Sabrina Willard NP Unavailable [phone] Encounter Details Date Type Department Care Team (Late st Contact Info) Description 08/31/2021 Orders Only [facility] [address] [facility] Advanced Medicine 7th [place] [address] [place] [address] Elaine Coy Neuro-endocrine carcinoma (CMS/HCC) (HCC) (Primary Dx) Social [...] on file 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 Gender Identity Not on file Sexual [...] unspecified site documented in this encounter Orders Lab Orders Without Results Count Last Ordered D ate First Ordered Date ONCBCN STUDY LAB 1 1 09/04/2021 documented in this encounter Care Teams Application Programmer Analyst Relationship Specialty Start Date End Date Julio César Briseno MD PCP - General 10/01/16 Eren Cr MD Referring Physician Medical Oncology 11/25/18 Yohana Bowen MD Radiation Oncologist Radiation Oncology 11/25/18 Sabrina Willard NP [address] [place] [address] Nurse Practitioner Medical Oncology 08/17/20 11/26/21 documented as of this encounter
--- OUTSIDE RECORDS SUMMARY | 2024-06-25 22:24 | XMS_ITS | Encounter Summary ---
Author Organization [facility] Address [address] [place] [address] Phone Care Team Providers Care Aviation Engineer Name Role Phone Julio César Briseno MD Primary Care Provider Eren Cr MD Unavailable [phone] Yohana Bowen MD Unavailable Sabrina Willard NP Unavailable [phone] Encounter Details Date Type Department Care Team (Late st Contact Info) Description 08/21/2021 Orders Only [facility] Oncology [address] [place] [address] Eren Cr MD [id number] [address] [place] [address] Neuro-endocrine carcinoma (CMS/HCC) (HCC) (Primary Dx) Social [...] on file 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 Gender Identity Not on file Sexual Orientation Straight 02/19/2021 9: 29 AM CDT Occupation Industry Job Start Date Job End Date retired Not on file Not on file Not on file documented as of this encounter Plan of Treatment Not on file documented as of this encounter Results * (ABNORMAL) Magnesium (09/18/2021 1:21 PM CDT) Magnesium 1.2(L) 1.4 - 2.5 mg/dL [facility] Comment:Testing performed by : [facility], [address] [place] [phone] Blood 09/18/2021 1:21 PM CDT 09/18/2021 1:23 PM CDT us Eren Cr MD LAB BLOOD ORDERABLES Final Re sult [facility] One [facility] [place] [address] documented in this encounter Visit Diagnoses Diagnosis Neuro-endocrine carcinoma (HCC)- Primary Other malignant neoplasm of unspecified site documented in this encounter Orders Appointment Requests Count Last Ordered Date Fi rst Ordered Date ONCBCN CLINIC APPOINTMENT REQUEST 1 022 ONCBCN LAB APPOINTMENT 1 09/18/2021 ONCBCN TAKE HOME STUDY DRUG APPT 1 09/19/19 22 documented in this encounter Care Teams Aviation Engineer Relationship Specialty Start Date End Date Julio César Briseno MD PCP - General 10/01/16 Eren Cr MD Referring Physician Medical Oncology 11/25/18 Yohana Bowen MD Radiation Oncologist Radiation Oncology 11/25/18 Sabrina Willard NP [address] [place] [address] Nurse Practitioner Medical Oncology 08/17/20 11/26/21 documented as of this encounter
--- OUTSIDE RECORDS SUMMARY | 2024-06-25 22:24 | XMS_ITS | Encounter Summary ---
Author Organization [facility] Address [address] [place] [address] Phone Care Team Providers Care Metal Engraver Name Role Phone Julio César Briseno MD Primary Care Provider Eren Cr MD Unavailable Yohana Bowen MD Unavailable Sabrina Willard NP Unavailable [phone] Reason for Visit * Reason Onset Date Comments follow up n/v 08/11/2021 Encounter Details Date Type Department Care Team (Late st Contact Info) Description 08/11/2021 Telephone [facility] Oncology [address] [facility] Advanced Medicine 7th [place] [address] [place] [address] Eren Cr MD [address] [facility] [address] [place] [address] follow up n/v Social History Tobacco Use Types Packs/Day Years [...] on file 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 They called the PCP office as well and they were closed for lunch 06-07 and will be calling them back. We will touch base in about 45 minutes on patient status. CARRIER documented in this encounter Plan of Treatment Not on file documented as of this encounter Visit Diagnoses Not on filedocumented in this encounter Care Teams Metal Engraver Relationship Specialty Start Date End Date Julio César Briseno MD PCP - General 10/01/16 Eren Cr MD Referring Physician Medical Oncology 11/25/18 Yohana Bowen MD Radiation Oncologist Radiation Oncology 11/25/18 Sabrina Willard NP [address] [place] [address] Nurse Practitioner Medical Oncology 08/17/20 11/26/21 documented as of this encounter
--- OUTSIDE RECORDS SUMMARY | 2024-06-25 22:24 | XMS_ITS | Encounter Summary ---
Author Organization [facility] Address [address] [place] [address] Phone Care Team Providers Care Staff Nuclear Weapons Officer Name Role Phone Julio César Briseno MD Primary Care Provider [phone] Eren Wu MD Unavailable [phone] Yohana Bowen MD Unavailable Sabrina Willard NP Unavailable [phone] Reason for Visit * Episode Based Medications (Routine) - Closed Specialty Diagnoses / Procedures Referred By Contac t Referred To Contact Diagnoses Neuro-endocrine carcinoma (HCC) Procedures study [id number] phase III cabozantinib Eren Wu MD [address] [facility] [address] [place] [address] Phone: tel: fax: [facility] at [facility] and [facility] [address] [facility] Advanced Medicine 7th [place] [address] Phone: tel: Referral ID Status Reason Start Date Expiration Date Visits Re quested Visits Authorized [id number] Closed 06/21/2021 06/26/2024 1 99 Encounter Details Date Type Department Care Team (Late st Contact Info) Description 08/21/2021 10:00 AM BINDER STRIPPER MACHINE Office Visit [facility] [address] [facility] 7th [place] [address] [place] [address] Eren Wu MD [address] [facility] [address] [place] [address] Neuro-endocrine carcinoma (CMS/HCC) (HCC) (Primary Dx); Bone [...] on file Legal Sex Female 2:41 PM BINDER STRIPPER MACHINE Gender Identity Not on file Sexual Orientation Straight 02/19/2021 9: 29 AM CDT Occupation Industry Job Start Date Job End Date retired Not on file Not on file Not on file documented as of this encounter Last Filed Vital Signs Vital Sign Reading Time Taken Comments Blood Pressure 134/78 08/21/2021 9:45 AM BINDER STRIPPER MACHINE Pulse 79 08/21/2021 9:45 AM BINDER STRIPPER MACHINE Temperature 36.3 ??C (97.3 ??F) 08/21/2021 9:45 AM CS T Respiratory Rate 18 08/21/2021 9:45 AM BINDER STRIPPER MACHINE Oxygen Saturation 96% 08/21/2021 9:45 AM BINDER STRIPPER MACHINE Inhaled Oxygen Concentration - - Weight 77.7 kg (171 lb 6.4 oz) 08/21/2021 9:45 A M BINDER STRIPPER MACHINE Height - - Body Mass Index 31.26 07/17/2021 2:15 PM BINDER STRIPPER MACHINE documented in this encounter Progress Notes * Eren Wu Jr., MD - 08/21/2021 10:00 AM CST MEDICAL ONCOLOGY OUTPATIENT ROV NOTE La Chung : 1950 DATE OF VISIT: 08/21/21 Oncology History Overview Note TREATMENT HISTORY: 1. CT abdomen and pelvis in July showed a calcified enhancing mass centered in the terminal ileum with possible involvement of the proximal appendix and adjacent desmoplastic, raising suspicion for primary tumor such as carcinoid or possibly adenocarcinoma. 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 The CT was also significant for tiny nodules in the omentum which could represent tumor deposits. 2. Colonoscopy in July at outside hospital showed hemorrhoids, ileitis, and diverticulosis. 3. On 10/03/2015, exploratory laparotomy, bilateral salpingo-oophorectomy, partial omentectomy, andperitoneal biopsies by Dr. Jasbir Reeves. At the same time, she also underwent right colectomy in [facility] OR by Dr. Greyson Reeves. 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 4. Abdominal and pelvic MR from 11/04/2015: Hepatic segment 7 lesion demonstrating mild T2 hyperintensity and diffusion restriction consistent with a metastatic focus. Enhancing nodules with diffusion restriction along the surface of the hepatic segment 6 consistent with serosal metastatic deposits. Nodular soft tissue enhancement along the left aspect of the vaginal cuff, suspicious for local recurrence; correlation with physical examination and attention on follow-up examinations was recommended by Radiology. Chest CT from 11/04/2015: No evidence of metastatic disease in the chest. Octreotide scan from 11/04/2015: No evidence for somatostatin receptor positive tumor. 5. Started on octreotide monthly injections on 11/07/2015, 30 mg IM. Scans done 10/21/2017 showed minimal increase in her lesions. 6. CT 04/21/2018: Stable pulmonary nodules, hepatic lesions, perihepatic implants, and peritoneal deposits with unchanged retroperitoneal, right supraclavicular, and mediastinal lymphadenopathy consistent with stable metastatic disease. 7. MRI abdomen 10/21/18 shows multiple hepatic lesions of concern the prior examination are consistent with metastases. In addition to these, there are numerous additional left and right hemiliver metastases that were not visualized on the prior examination due to differences in modality. Omental deposits are consistentwith metastases. 8. 11/19/18 Gallium dotatate PET: Postsurgical changes of exploratory laparotomy and omentectomy with diffuse metastatic disease in the chest, abdomen, and pelvis, including a lesion in the proximal left humerus. 9. On 11/24/2018, plan for PRRT due to disease progression on octreotide. 10. PRRT cycle 1 on 12/24/18. 11. PRRT cycle 2 on 02/18/19. 12. 03/23/19 CT c/a/p in summary shows stable disease. 13. #3 PRRT 06/10/2019 14.#4 PRRT 08/05/2019 15. 01/25/2020: Dotatate PET notes Increased size and intensity of uptake in a left humeral metastasis. New right C7 metastasis. Several liver lesions appear new, within the anterior superior left lobe. These sites are concerning for progression of disease. Decreased uptake and conspicuity of multiple bilateral lung nodules. 16. CT 08/01/2020: No significant change in multiple serosal hepatic metastases and omental metastatic disease. Unchanged sclerotic lesion within the inferior right C7 articular facet likely representing metastasis given dotatate uptake. Stable right supraclavicular LN. Continue 17. Continue monthly Octreotide LAR injections 08/15/2020. 18. PET scan 12/27/2020 noted progressive disease, and chromogranin A was rising 19. 01/30/2021: Start Afinitor 10 mg PO daily + monthly Octreotide. Poor tolerance and symptomatic pneumonitis. Discontinued 03/27/2021. 20. 05/15/2021: Interval decrease in peripheral and basilar predominant ground glass opacity/reticulation and peribronchial vascular thickening consistent with resolving infectious/inflammatory etiology such as previously suggested organizing pneumonia. No evidence of disease progression in the chest. 21. Scans 06/15/2021 showed majority of liver lesions increased. 22. 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 She was treated with everolimus but developed pneumonitis. Her everolimus had been discontinued since March. CT scan 05/15/2021 notes improved inflammation and she continued on octreotide alone. her MRI done 06/15/2021 showed that the majority of her liver lesions have increased in size and the vaginal cuff lesion also increased in size. She has consented to treatment on the CABINET study and started treatment on study on 07/21/2021. She appear to be tolerating her treatments well Now she stated that her dizziness had resolved since saturday. She is already scheduled for an MRI for her recurrent dizziness to determine if she has any brain metastases. She notes no headaches. She feels that she is mildly dehydrated and still has diarrhea. ALLERGIES: Allergies Allergen Reactions ??? Morphine Blisters ??? Ezetimibe-Simvastatin Muscle pain and Unknown Muscle weakness ??? Ramipril Cough ROS: A complete review of systems was performed and was negative other than those mentioned in the aboveinterval history. All other systems negative. OBJECTIVE: Most Recent Vitals: BP: 134/78 Temp: 36.3 ??C (97.3 ??F) Temp src: Transdermal Pulse: 79 Resp: 18 SpO2: 96 % Weight: 77.7 kg (171 lb 6.4 oz) PHYSICAL EXAM: ECOG PS: 1 GEN: Calm, conversant, well-appearing female in no [...] No rashes over exposed skin NEURO: A&Ox4, senior software developer grossly intact by conversation, moving all extremities well, no focal deficits appreciated PSYCH: Mood euthymic, affect appropriate and congruent, speech clear and goal-directed LABS: All laboratories personally reviewed and discussed with patient during office visit, selected values included below. Hematology Lab History Some values may be hidden. Unless noted otherwise, only the newest values recorded on each date aredisplayed. Labs - Hematology Latest Ref Range 07/17/21 08/03/21 08/07/21 08/21/21 WBC 3.8 - 9.8 K/cumm 5.4 4.5 4.1 3.1 (A) Total Hb, POC 12.1 - 15.1 g/dL 14.0 14.4 14.2 15.5 (A) Hct 36.1 - 44.3 % 41.1 40.8 40.4 43.2 Plt 140 - 440 K/cumm 149 127 (A) 103 (A) 99 (A) Neutrophil abs 1.8 - 6.6 K/cumm 4.1 3.3 3.1 2.3 Lymphocytes, abs 1.2 - 3.3 K/cumm 0.5 (A) 0.6 (A) 0.6 (A) 0.6 (A) (A) Abnormal value Comments are available for some flowsheets but are not being displayed. Chem/LFT Lab History Some values may be hidden. Unless noted otherwise, only the newest values recorded on each date aredisplayed. Labs-Chem/LFT Latest Ref Range 07/17/21 08/03/21 08/07/21 08/21/21 Sodium 135 - 145 mmol/L 141 139 139 138 Creatinine 0.60 - 1.10 mg/dL 1.04 1.12 (A) 0.96 1.19 (A) Bilirubin, total 0.1 - 1.2 mg/dL 0.5 0.5 0.6 0.8 AST 10 - 45 Units/L 19 75 (A) 42 45 ALT 7 - 45 Units/L 12 50 (A) 33 33 CrCl- Actual Body Weight (Cockcroft-Gault) 61.4 56.2 66.9 52.4 (A) Abnormal value Comments are available for some flowsheets but are not being displayed. Tumor Marker History Some values may be hidden. Unless noted otherwise, only the newest values recorded on each date aredisplayed. Tumor Markers Latest Ref Range 05/22/21 06/19/21 07/04/21 07/17/21 Chromogranin A <93 ng/mL 1083 (A) 1630 (A) 1364 (A) 1727 (A) (A) Abnormal value Comments are available for some flowsheets but are not being displayed. IMAGING: XR Humerus Left 2 or More Views Narrative: EXAMINATION: Left humerus 2 or more views HISTORY: Metastatic neuroendocrine tumor FINDINGS: 2 views of the left humerus are submitted for interpretation. Comparison is made to PET/CT examination on 02/26/2021. There is no acute fracture. There is a subtle sclerotic lesion in the left humeral mid shaft corresponding to the metastatic lesion on PET/CT examination. There is no acute fracture. Impression: 1. Subtle sclerotic metastatic lesion in the mid shaft of the left humerus. No pathologic fracture. Electronically signed by: Petros Viveros M.D. ASSESSMENT AND PLAN: Ms. La Chung is a 70 y.o. Non- female with metastatic neuroendocrine tumor who presents for routine oncologic care. 1. Metastatic neuroendocrine tumor with liver metastases. He continues on octreotide and sh e appear to be tolerating her treatments on study well With her break. . She will proceed on CABINET with cabozantinib/placebo. 2. Diarrhea controlled 3. Fluids and possible magesium repletion 4. Dizziness- Resolved since saturday she already has an MRI scheduled for tomorrow. As this is recurrent. Eren Wu MD Medical Oncology ER STRIPPER MACHINE documented in this encounter Miscellaneous Notes * Addendum Note - Eren Wu Jr., MD - 08/21/2021 10:00 AM CSTAddended by: EREN WU on: 08/21/2021 01:40 PM Modules accepted: Orders ER STRIPPER MACHINE documented in this encounter Plan of Treatment Not on file documented as of this encounter Results * (ABNORMAL) Chromogranin A (10/16/2021 9:59 AM CDT) Chromogranin A 812(H) <93 ng/mL JASON BLACK Comment: Impaired renal or hepatic function or treatment with proton pump inhibitors may result in artifactual elevations of Chromogranin A. ADDITIONAL INFORMATION This test was developed and its performance characteristics determined by [facility] in a manner consistent with [...] a homogeneous time-resolved immunofluorescent assay manufactured by [employer] and performed on the BookMy[employer] KrLeaderzor Compact Plus. ? Values obtained with different assay methods or kits may be different and cannot be used interchangeably. ? Test results cannot be interpreted as absolute evidence for the presence or absence of malignant disease. Test Performed by: [facility] [address] [id number] Breeding Manager: Immanuel Novak M.D. Ph.D.; CLIA# [id number] Blood 10/16/2021 9:59 AM CDT 10/16/2021 11:37 AM CDT us Eren Wu MD LAB BLOOD ORDERABLES Final Re sult JASON BLACK [facility] Department of Laboratories [place], [place] [id number] * (ABNORMAL) Comprehensive metabolic panel (10/16/2021 9:59 AM CDT) Sodium 142 135 - 145 mmol/L JASON LEAVITT Comment:Testing performed by : [facility], [address] [place] [phone] Potassium, pl 3.6 3.3 - 4.9 mmol/L JASON LEAVITT Comment:Testing performed by : [facility], [address] [place] [phone] Chloride 110 97 - 110 mmol/L JASON LEAVITT Comment:Testing performed by : [facility], [address] [place] [phone] CO2 24 22 - 32 mmol/L JASON LEAVITT Comment:Testing performed by : [facility], [address] [place] [phone] Anion gap 8 2 - 15 mmol/L CERNER BJ Comment:Testing performed by : [facility], [address] [place] [phone] BUN 16 8 - 25 mg/dL CERNER BJ Comment:Testing performed by : [facility], [address] [place] [phone] Creatinine 1.07 0.60 - 1.10 mg/dL CERNER BJ Comment:Testing performed by : [facility], [address] [place] [phone] Glucose 120 70 - 199 mg/dL CERNER [...] last revised 2017. Testing performed by: [facility], [address] [place] [phone] Calcium 10.1 8.5 - 10.3 mg/dL CERNER BJ Comment:Testing performed by : [address] [phone] Bilirubin, total 0.8 0.1 - 1.2 mg/dL CERNER BJ Comment:Testing performed by : [address] [phone] Protein, pl 5.8(L) 6.5 - 8.5 g/dL CERNER BJ Comment:Testing performed by : [address] [phone] Albumin 3.9 3.5 - 5.0 g/dL CERNER BJ Comment:Testing performed by : [address] [phone] Alk phos 84 40 - 130 Units/L CERNER BJ Comment:Testing performed by : [facility], [address] [place] [phone] ALT 25 7 - 45 Units/L JASON BLACK Comment:Testing performed by : [facility], [address] [place] [phone] AST 35 10 - 45 Units/L JASON BLACK Comment:Testing performed by : [facility], [address] [place] [phone] Blood 10/16/2021 9:59 AM CDT 10/16/2021 10:03 AM CDT us Eren Wu MD LAB BLOOD ORDERABLES Final Re sult JASON BLACK [facility] Department [place] [address] * (ABNORMAL) CBC with auto differential (10/16/2021 9:59 AM CDT) WBC 2.9(L) 3.8 - 9.8 K/cumm JASON BLACK Comment:Testing performed by : [facility], [address] [place] [phone] Hgb 10.1(L) 12.1 - 15.1 g/dL JASON BLACK Comment:Testing performed by : [facility], [address] [place] [phone] Hct 28.8(L) 36.1 - 44.3 % JASON BLACK Comment:Testing performed by : [facility], [address] [place] [phone] Plt 78(L) 140 - 440 K/cumm JASON BLACK Comment:Testing performed by : [address] [phone] MPV 8.4 6.8 - 10.4 fL JASON BLACK Comment:Testing performed by : [address] [phone] RBC 3.03(L) 3.90 - 5.00 M/cumm JASON BLACK Comment:Testing performed by : [facility], [address] [place] [phone] MCV 95.2 80.0 - 97.6 fL [facility] Comment:Testing performed by : [facility], [address] [place] [phone] MCH 33.3 26.7 - 33.7 pg [facility] Comment:Testing performed by : [facility], [address] [place] [phone] MCHC 35.0 32.7 - 35.5 g/dL JASON [facility] Comment:Testing performed by : [facility], [address] [place] [phone] RDW CV 22.9(H) 11.8 - 14.6 % JASON [facility] Comment:Testing performed by : [facility], [address] [place] [phone] NRBC abs 0.00 0.00 - 0.01 K/cumm JASON [facility] Comment:Testing performed by : [facility], [address] [place] [phone] Blood 10/16/2021 9:59 AM CDT 10/16/2021 10:03 AM CDT Eren Wu MD LAB BLOOD ORDERABLES Final Re sult Performing Organization Address [facility] Co de Phone Number [facility] [place] [address] * (ABNORMAL) Vitamin D 25 hydroxy (10/16/2021 9:59 AM CDT) Vitamin D 25-OH 24(L) 30 - 80 ng/mL [facility] Blood 10/16/2021 9:59 AM CDT 10/16/2021 10:32 AM CDT Eren Wu MD LAB BLOOD ORDERABLES Final Re sult Performing Organization Address [facility] Co de Phone Number [facility] [place] [address] * Phosphorus (10/16/2021 9:59 AM CDT) Phosphorus, pl 2.3 2.3 - 4.5 mg/dL JASON BLACK Comment:Testing performed by : [facility], [address] [place] [phone] Blood 10/16/2021 9:59 AM CDT 10/16/2021 10:03 AM CDT us Eren Wu MD LAB BLOOD ORDERABLES Final Re sult JASON [facility] Department [place] [address] * (ABNORMAL) Lipid panel (10/16/2021 9:59 AM CDT) Cholesterol 180 30 - 199 mg/dL JASON BLACK Comment: [...] revised on 2018. Triglycerides 248(H) <=149 mg/dL JASON BLACK Comment: Interpretive Data [...] revised on 2018. HDL 46 >=40 mg/dL JASON [facility] Comment: Interpretive Data Ages < [...] on 2018. LDL, calculated 84 <=129 mg/dL JASON [facility] Comment: Interpretive Data Ages < [...] revised on 2018. Non-HDL Cholesterol 134 mg/dL JASON BLACK Comment: Interpretive Data Ages [...] revised on 2018. Chol/HDL ratio 4 JASON [facility] Blood 10/16/2021 9:59 AM CDT 10/16/2021 10:32 AM CDT us Eren Wu MD LAB BLOOD ORDERABLES Final Re sult [facility] Department [place] [address] * (ABNORMAL) Chromogranin A (09/18/2021 1:21 PM CDT) Chromogranin A 912(H) <93 ng/mL JASON [facility] Comment: Impaired renal or hepatic function or treatment with proton pump inhibitors may result in artifactual elevations of Chromogranin A. ADDITIONAL INFORMATION This test was developed and its performance characteristics determined by [facility] in a manner consistent with [...] a homogeneous time-resolved immunofluorescent assay manufactured by [employer] and performed on the BookMy[employer] Kryptor Compact Plus. ? Values obtained with different assay methods or kits may be different and cannot be used interchangeably. ? Test results cannot be interpreted as absolute evidence for the presence or absence of malignant disease. Test Performed by: [facility] [address] [place] [address] Breeding Manager: Immanuel Novak M.D. Ph.D.; CLIA# [id number] Blood 09/18/2021 1:21 PM CDT 09/18/2021 4:33 PM CDT Eren Wu MD LAB BLOOD ORDERABLES Final Re sult [facility] Department [place] [address] * (ABNORMAL) Comprehensive metabolic panel (09/18/2021 1:21 PM CDT) Sodium 137 135 - 145 mmol/L JASON [facility] Comment:Testing performed by : [facility], [address] [place] [phone] Potassium, pl 3.8 3.3 - 4.9 mmol/L JASON [facility] Comment:Testing performed by : [facility], [address] [place] [phone] Chloride 104 97 - 110 mmol/L JASON [facility] Comment:Testing performed by : [facility], [address] [place] [phone] CO2 24 22 - 32 mmol/L JASON [facility] Comment:Testing performed by : [facility], [address] [place] [phone] Anion gap 10 2 - 15 mmol/L JASON [facility] Comment:Testing performed by : [facility], [address] [place] [phone] BUN 28(H) 8 - 25 mg/dL CERNER BJ Comment:Testing performed by : [facility], [address] [place] [phone] Creatinine 1.55(H) 0.60 - 1.10 mg/dL CERNER BJ Comment:Testing performed by : [address] [phone] Glucose 129 70 - 199 mg/dL CERNER [...] last revised 2017. Testing performed by: [facility], [address] [place] [phone] Calcium 10.6(H) 8.5 - 10.3 mg/dL CERNER BJ Comment:Testing performed by : [address] [phone] Bilirubin, total 0.9 0.1 - 1.2 mg/dL CERNER BJ Comment:Testing performed by : [address] [phone] Protein, pl 6.7 6.5 - 8.5 g/dL CERNER BJ Comment:Testing performed by : [address] [phone] Albumin 4.1 3.5 - 5.0 g/dL CERNER BJ Comment:Testing performed by : [address] [phone] Alk phos 98 40 - 130 Units/L CERNER BJ Comment:Testing performed by : [address] [phone] ALT 39 7 - 45 Units/L CERNER BJ Comment:Testing performed by : [facility], [address] [place] [phone] AST 54(H) 10 - 45 Units/L JASON BLACK Comment:Testing performed by : [facility], [address] [place] [phone] Blood 09/18/2021 1:21 PM CDT 09/18/2021 1:23 PM CDT Eren Wu MD LAB BLOOD ORDERABLES Final Re sult [facility] Department [place] [address] * (ABNORMAL) CBC with auto differential (09/18/2021 1:21 PM CDT) WBC 3.0(L) 3.8 - 9.8 K/cumm JASON [facility] Comment:Testing performed by : [facility], [address] [place] [phone] Hgb 13.1 12.1 - 15.1 g/dL JASON BLACK Comment:Testing performed by : [facility], [address] [place] [phone] Hct 36.9 36.1 - 44.3 % JASON BLACK Comment:Testing performed by : [address] [phone] Plt 71(L) 140 - 440 K/cumm JASON BLACK Comment:Testing performed by : [facility], [address] [place] [phone] MPV 8.5 6.8 - 10.4 fL CERMINNIE BJ Comment:Testing performed by : [address] [phone] RBC 4.14 3.90 - 5.00 M/cumm JASON BLACK Comment:Testing performed by : [address] [phone] MCV 89.0 80.0 - 97.6 fL CERMINNIE BJ Comment:Testing performed by : [facility], [address] [place] [phone] MCH 31.6 26.7 - 33.7 pg JASON [facility] Comment:Testing performed by : [facility], [address] [place] [phone] MCHC 35.5 32.7 - 35.5 g/dL JASON [facility] Comment:Testing performed by : [facility], [address] [place] [id number] RDW CV 16.1(H) 11.8 - 14.6 % [facility] Comment:Testing performed by : [facility], [address] [place] [phone] NRBC abs 0.00 0.00 - 0.01 K/cumm [facility] Comment:Testing performed by : [facility], [address] [place] [phone] Blood 09/18/2021 1:21 PM CDT 09/18/2021 1:23 PM CDT Eren Wu MD LAB BLOOD ORDERABLES Final Re sult Performing Organization Address [facility] Co de Phone Number [facility] [place] [phone] * Vitamin D 25 hydroxy (09/18/2021 1:21 PM CDT) [facility] Vitamin D 25-OH 33 30 - 80 ng/mL [facility] Blood 09/18/2021 1:21 PM CDT 09/18/2021 2:00 PM CDT Eren Wu MD LAB BLOOD ORDERABLES Final Re sult Performing Organization Address [facility] Co de Phone Number [facility] [place] [address] * (ABNORMAL) Phosphorus (09/18/2021 1:21 PM CDT) Pathologist [facility] Phosphorus, pl 2.1(L) 2.3 - 4.5 mg/dL [facility] Comment:Testing performed by : [facility], [address] [facility] [phone] Blood 09/18/2021 1:21 PM CDT 09/18/2021 1:23 PM CDT us Eren Wu MD LAB BLOOD ORDERABLES Final Re sult [facility]ASON BL[facility] [place] [address] * (ABNORMAL) Lipid panel (09/18/2021 1:21 PM CDT) Cholesterol 179 30 - 199 mg/dL [facility] Comment: [...] Data was last revised on 2018. Triglycerides 301(H) <=149 mg/dL [facility] Comment: Interpretive Data [...] on 2018. HDL 59 >=40 mg/dL [facility] Comment: Interpretive Data Ages < [...] 2018. LDL, calculated 60 <=129 mg/dL [facility] Comment: Interpretive Data Ages < [...] revised on 2018. Non-HDL Cholesterol 120 mg/dL [facility] Comment: Interpretive Data Ages < [...] last revised on 2018. Chol/HDL ratio 3 [facility] Blood 09/18/2021 1:21 PM CDT 09/18/2021 2:00 PM CDT Eren Wu MD LAB BLOOD ORDERABLES Final Re sult [facility] [place] [address] documented in this encounter Visit Diagnoses Diagnosis Neuro-endocrine carcinoma (HCC)- Primary Other malignant neoplasm of unspecified site Bone metastasis Secondary malignant 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) Neuroendocrine carcinoma (HCC) Other malignant neoplasm of unspecified site documented in this encounter Orders Appointment Requests Count Last Ordered Date Fi rst Ordered Date ONCBCN CLINIC APPOINTMENT REQUEST 3 022 08/21/2021 ONCBCN INJECTION APPOINTMENT REQUEST 2 10/0609/18/2021 ONCBCN LAB APPOINTMENT 2 10/16/202109/18 documented in this encounter Care Teams Staff Nuclear Weapons Officer Relationship Specialty Start Date End Date Julio César Briseno MD PCP - General 10/01/16 Eren Wu MD Referring Physician Medical Oncology 11/25/18 Yohana Bowen MD Radiation Oncologist Radiation Oncology 11/25/18 Sabrina Willard NP [address] [place] [address] Nurse Practitioner Medical Oncology 08/17/20 11/26/21 documented as of this encounter
--- OUTSIDE RECORDS SUMMARY | 2024-06-25 22:24 | XMS_ITS | Encounter Summary ---
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) Procedures [place] OCTREOTIDE INJECTION, DEPOT Octreotide 28 Day Cycles - Carcinoid Eren Cr MD [address] [facility] [address] [place] [address] Phone: tel: fax: [address] [address] Phone: tel: fax: Referral ID Status Reason Start Date Expiration Date V isits Requested Visits Authorized [id number] Authorized 11/28/2017 02/05/2025 1 150 Encounter Details Date Type Department Care Team (Late st Contact Info) Description 09/18/2021 3:00 PM CDT Infusion [facility] Oncology [address] [facility] 7th [place] [address] Neuroendocrine carcinoma (CMS/HCC) (HCC) (Primary Dx); Malignant [...] on file 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 ONCOL[facility] La Chung is a 70 y.o. female who presents for the following injection: Xgeva 120mg and Sandostatin. Nursing Assessment Nursing Assessment Appetite:: Fair Diarrhea:: No Constipation:: No Last BM Date: (pt has colostomy) Existing Patients: Any falls since your last visit? : No New Patients: Any falls since your last visit? : N/A Fatigue:: Occassional Mouth Sores:: No Nausea/Vomiting:: No Pain:: No Peripheral Neuropathy: : No Pt states has potential to be ? : No Shortness of Breath?: Yes (MARTINEZ) Lungs auscultated PRN:: No Pt is on oxygen? : No Respiratory Effort Characteristics: Dyspnea exertion Skin Condition/Temp: Warm, Dry Oral Mucosa Grade: Normal (0) Abdomen: Soft Swelling:: No Additional Notes: BP: 133/70 Temp: 36.2 ??C (97.2 ??F) Pulse: 82 Resp: 18 SpO2: 95 % Weight: 75.6 kg (166 lb 9.6 oz) Patient: met treatment parameters La Chung tolerated injection well Additional Notes: pt verbalizes understanding of medication, no further questions; band-aid over injection sites; pt port left accessed as pt is now going to [facility] for IVF Discharge Plan Discharge instructions given to patient. Discharge Mode: Ambulatory Accompanied by: Spouse Discharged To: [facility] documented in this encounter Plan of Treatment [...] 120 mg 120 mg, subcutaneous, Once, On Sat09/18/21 at 1600, For 1 dose, Calcium level should be greater than 8 mg/dl Administer injection in upper arm, abdomen or upper thigh Refrigerate. Allow to stand 15 to 30 mins prior to useIndications:Bone metastasis,Neuro-endocrine carcinoma (HCC) Given 09/18/2021 4:34 PM CDT 120 mg Left Lower Abdomen octreotide LAR (SandoSTATIN LAR) extended release intramuscular injection 30 mg 30 mg, intramuscular, Once, On Sat09/18/21 at 1530, For 1 dose, Refrigerate. For IM intragluteal administration only- alternate gluteal sites. Shake.Indications:Malignan t neoplasm metastatic to liver (HCC),Neuroendocrine carcinoma (HCC) Given 09/18/2021 4:34 PM CDT 30 mg Left Dorsogluteal/Butto ck documented in this encounter Orders Nursing Count Last Ordered Date First Orde red Date ONCBCN NURSING COMMUNICATION [id number] 1 0 09/18/2021 PHYSICIAN COMMUNICATION ORDER 1 09/18/2021 Appointment Requests Count Last Ordered Date Fi rst Ordered Date ONCBCN INJECTION APPOINTMENT REQUEST 1 09/05 documented in this encounter Care Teams Decal Cutter Relationship Specialty Start Date End Date Julio César Briseno MD PCP - General 10/01/16 Eren Cr MD Referring Physician Medical Oncology 11/25/18 Yohana Bowen MD Radiation Oncologist Radiation Oncology 11/25/18 Sabrina Willard NP [address] [place] [address] Nurse Practitioner Medical Oncology 08/17/20 11/26/21 documented as of this encounter
--- OUTSIDE RECORDS SUMMARY | 2024-06-25 22:24 | XMS_ITS | Encounter Summary ---
Author Organization [facility] Address [address] [place] [address] Phone Care Team Providers Care Central Office Maintainer Name Role Phone Julio César Briseno MD Primary Care Provider [phone] Eren Cr MD Unavailable [phone] Yohana Bowen MD Unavailable Sabrina Willard NP Unavailable Encounter Details Date Type Department Care Team (Late st Contact Info) Description 09/05/2021 Orders Only [facility] Oncology [address] [facility] Advanced Medicine 7th [place] [address] [place] [address] Eren Cr MD [address] [facility] [address] [place] [address] Social History Tobacco Use Types Packs/Day Years [...] file 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 Gender Identity Not on file Sexual Orientation [...] Infection Onset Date Last Indicated Resolved Time Exposure, COVID-19 Comment:Added automatically based on COVID19 lab answers indicating exposure risk 09/04/2021 09/04/2021 09/14/2021 3:[address] documented as of this encounter Care Teams Central Office Maintainer Relationship Specialty Start Date End Date Julio César Briseno MD PCP - General 10/01/16 Eren Cr MD Referring Physician Medical Oncology 11/25/18 Yohana Bowen MD Radiation Oncologist Radiation Oncology 11/25/18 Sabrina Willard NP [address] [place] [address] Nurse Practitioner Medical Oncology 08/17/20 11/26/21 documented as of this encounter
--- OUTSIDE RECORDS SUMMARY | 2024-06-25 22:24 | XMS_ITS | Encounter Summary ---
Author Organization [facility] Address [address] [place] [address] Phone Care Team Providers Care Quirk Sander Name Role Phone Julio César Briseno MD Primary Care Provider Eren Cr MD Unavailable [phone] Yohana Bowen MD Unavailable Sabrina Willard NP Unavailable Encounter Details Date Type Department Care Team (Late st Contact Info) Description 08/09/2021 Orders Only [facility] Oncology [address] [facility] Advanced Medicine 7th [place] [address] [place] [address] Eren Cr MD [facility] [address] [place] [address] 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) (Primary Dx); Neuroendocrine carcinoma (CMS/HCC) (HCC); Neuro-endocrine carcinoma (CMS/HCC) (HCC) Social [...] on file 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
--- OUTSIDE RECORDS SUMMARY | 2024-06-25 22:24 | XMS_ITS | Encounter Summary ---
Author Organization [facility] Address [address] [place] [address] Phone Care Team Providers Care White Mixing Operator Name Role Phone Julio César Briseno MD Primary Care Provider [phone] Eren Cr MD Unavailable [phone] Yohana Bowen MD Unavailable Sabrina Willard NP Unavailable [phone] Reason for Visit * Episode Based Medications (Routine) - Closed Specialty Diagnoses / Procedures Referred By Contac t Referred To Contact Diagnoses Neuro-endocrine carcinoma (HCC) Procedures study [id number] phase III cabozantinib Eren Cr MD [address] [place] [address] Phone: tel: fax: [employer] [address] [facility] Advanced [facility] 7th [place] [address] Phone: tel: Referral ID Status Reason Start Date Expiration Date Visits Re quested Visits Authorized [id number] Closed 06/21/2021 06/26/2024 1 99 Encounter Details Date Type Department Care Team (Latest Contact Info) Description 08/21/2021 10:45 AM SAP PORTAL CONSULTANT Research Med Pick-Up/CTRU Milk Bottler [facility] Oncology [address] 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 Gender Identity Not on file Sexual [...] Date First Ordered Date [id number] cabozantinib/pl acebo (2018-02-/[id number]) tablet 60 mg 1 08/21/2021 Appointment Requests Count Last Ordered Date Fi rst Ordered Date ONCBCN TAKE HOME STUDY DRUG APPT 1 08/21/19 22 documented in this encounter Care Teams White Mixing Operator Relationship Specialty Start Date End Date Julio César Briseno MD PCP - General 10/01/16 Eren Cr MD Referring Physician Medical Oncology 11/25/18 Yohana Bowen MD Radiation Oncologist Radiation Oncology 11/25/18 Sabrina Willard NP [address] [place] [address] Nurse Practitioner Medical Oncology 08/17/20 11/26/21 documented as of this encounter
--- OUTSIDE RECORDS SUMMARY | 2024-06-25 22:24 | XMS_ITS | Encounter Summary ---
Author Organization [facility] Address [address] [place] [address] Phone Care Team Providers Care Steel Pan Form Placing Supervisor Name Role Phone Julio César Briseno MD Primary Care Provider Eren Cr MD Unavailable Yohana Bowen MD Unavailable Sabrina Willard NP Unavailable Encounter Details Date Type Department Care Team (Late st Contact Info) Description 08/18/2021 Orders Only [facility] Oncology [address] [facility] Advanced Medicine 7th [place] [address] [place] [phone] Eren Cr MD [address] 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 Gender Identity Not on file Sexual Orientation Straight 02/19/2021 9: 29 AM CDT Occupation Industry Job Start Date Job End Date retired Not on file Not on file Not on file documented as of this encounter Plan of Treatment Not on file documented as of this encounter Visit Diagnoses Not on filedocumented in this encounter Care Teams Steel Pan Form Placing Supervisor Relationship Specialty Start Date End Date Julio César Briseno MD PCP - General 10/01/16 Eren Cr MD Referring Physician Medical Oncology 11/25/18 Yohana Bowen MD Radiation Oncologist Radiation Oncology 11/25/18 Sabrina Willard NP [address] [place] [address] Nurse Practitioner Medical Oncology 08/17/20 11/26/21 documented as of this encounter
--- OUTSIDE RECORDS SUMMARY | 2024-06-25 22:24 | XMS_ITS | Encounter Summary ---
Author Organization [facility] Address [address] [place] [address] Phone Care Team Providers Care Packer Insulation Name Role Phone Julio César Briseno MD Primary Care Provider [phone] Eren Cr MD Unavailable [phone] Yohana Bowen MD Unavailable Sabrina Willard NP Unavailable Encounter Details Date Type Department Care Team (Late st Contact Info) Description 08/17/[address] 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
--- OUTSIDE RECORDS SUMMARY | 2024-06-25 22:24 | XMS_ITS | Encounter Summary ---
Author Organization [facility] Address [address] [place] [address] Phone Care Team Providers Care It Integration Architect Name Role Phone Julio César Briseno MD Primary Care Provider [phone] Eren Cr MD Unavailable Yohana Bowen MD Unavailable Sabrina Willard NP Unavailable Reason for Visit * Reason Onset Date Comments Dizziness 08/17/2021 Encounter Details Date Type Department Care Team (Late st Contact Info) Description 08/17/2021 Telephone [facility] On[facility] [address] [facility] Advanced Medicine 7th [place] [address] [place] [address] Eren Cr MD [address] [facility] [address] [place] [address] Dizziness Social History Tobacco Use Types Packs/Day Years [...] file 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 Patient was seen by pcp who decreased dose of her BP med back to prior dosage. PCP had increased Benicar due to increase in BP however 3 days after the increase patient experienced dizziness and nausea. Labs done by PCP and results reviewed with , no need for IV fluids based on results. Platelet low at 88, other labs stable. Patient had UA done for which culture was sent. This is still pending. Patient is going to rest for a couple of hours and will touch base again then to determine if anything needed to be scheduled for tomorrow if she is not still feeling improved. ARCH LABORATORY SPECIALIST documented in this encounter Plan of Treatment Not on file documented as of this encounter Visit Diagnoses Not on filedocumented in this encounter Care Teams It Integration Architect Relationship Specialty Start Date End Date Julio César Briseno MD PCP - General 10/01/16 Eren Cr MD Referring Physician Medical Oncology 11/25/18 Yohana Bowen MD Radiation Oncologist Radiation Oncology 11/25/18 Sabrina Willard NP [address] [place] [address] Nurse Practitioner Medical Oncology 08/17/20 11/26/21 documented as of this encounter
--- OUTSIDE RECORDS SUMMARY | 2024-06-25 22:24 | XMS_ITS | Encounter Summary ---
Author Organization [facility] Address [address] [place] [address] Phone Care Team Providers Care Splunk Developer Name Role Phone Julio César Briseno MD Primary Care Provider Eren Cr MD Unavailable [phone] Yohana Bowen MD Unavailable Sabrina Willard NP Unavailable [phone] Encounter Details Date Type Department Care Team (Late st Contact Info) Description 09/04/2021 Orders Only [facility] Oncology [address] [facility] Advanced Medicine 7th [place] [address] [place] [address] Roshni Gutierrez CMA Neuro-endocrine carcinoma (CMS/HCC) (HCC) (Primary Dx) Social [...] on file Legal Sex Female 2:41 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 DRIER Gender Identity Not on file Sexual Orientation Straight 02/19/2021 9: 29 AM CDT Occupation Industry Job Start Date Job End Date retired Not on file Not on file Not on file documented as of this encounter Plan of Treatment Not on file documented as of this encounter Results * Respiratory pathogen panel Nasopharyngeal (09/04/2021 2:10 PM FLAKE DRIER) Pathologist [facility] Influenza A RNA Not Detected Not Detected [facility] Influenza B RNA Not Detected Not Detected [facility] RSV RNA Not Detected Not Detected [facility] COVID-19 RNA Not Detected Not Detected [facility] Coronavirus 229E RNA Not Detected Not Detected [facility] Coronavirus HKU1 RNA Not Detected Not Detected [facility] Coronavirus NL63 RNA Not Detected Not Detected [facility] Coronavirus OC43 RNA Not Detected Not Detected [facility] Adenovirus DNA Not Detected Not Detected [facility] Metapneumovirus RNA Not Detected Not Detected [facility] Rhinovirus/Enterov irus RNA Not Detected Not Detected [facility] Parainfluenza 1 RNA Not Detected Not Detected [facility] Parainfluenza 2 RNA Not Detected Not Detected [facility] Parainfluenza 3 RNA Not Detected Not Detected [facility] Parainfluenza 4 RNA Not Detected Not Detected [facility] B. pertussis DNA Not Detected Not Detected [facility] B. parapertussis DNA Not Detected Not Detected [facility] C. pneumoniae DNA Not Detected Not Detected [facility] M. pneumoniae DNA Not Detected Not Detected [facility] Employeed in healthcare? No [facility] status? No [facility] Group care resident? No [facility] Hospitalized? No [facility] Is patient in ICU? No [facility] Symptomatic as defined by CDC? Yes [facility] Nasopharyngeal 09/04/2021 2: 10 PM FLAKE DRIER 09/04/2021 3:00 PM FLAKE DRIER Narrative [facility] - 09/04/2021 4:05 PM FLAKE DRIER Date of Symptom Onset->09/02/21 Reason for testing?->Known exposure to confirmed or suspected COVID-19 case Known exposure to confirmed or suspected COVID-19 case?->No Surveillance testing for transplant patient?->No Eren Cr MD LAB MICROBIOLOGY - GENERAL OR DERABLES Final Result JASON BLACK [facility] [place] [address] documented in this encounter Visit Diagnoses Diagnosis Neuro-endocrine carcinoma (HCC) Other malignant neoplasm of unspecified site Neuro-endocrine carcinoma (HCC)- Primary Other malignant neoplasm of unspecified site documented in this encounter Additional Health Concerns Infection Onset Date Last Indicated Resolved Time Exposure, COVID-19 Comment:Added automatically based on COVID19 lab answers indicating exposure risk 09/04/2021 09/04/2021 09/14/2021 3:[address] COVID: Suspected 09/04/2021 09/04/2021 09/04/2021 4:06 PM FLAKE DRIER documented as of this encounter Care Teams Splunk Developer Relationship Specialty Start Date End Date Julio César Briseno MD PCP - General 10/01/16 Eren Cr MD Referring Physician Medical Oncology 11/25/18 Yohana Bowen MD Radiation Oncologist Radiation Oncology 11/25/18 Sabrina Willard NP [address] [place] [address] Nurse Practitioner Medical Oncology 08/17/20 11/26/21 documented as of this encounter
--- OUTSIDE RECORDS SUMMARY | 2024-06-25 22:24 | XMS_ITS | Encounter Summary ---
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 Gender Identity Not on file Sexual Orientation Straight 02/19/2021 9: 29 AM CDT Occupation Industry Job Start Date Job End Date retired Not on file Not on file Not on file documented as of this encounter Plan of Treatment Not on file documented as of this encounter Procedures Procedure Name Priority Date/Time Associated Diagnosis Comments SCAN - LABS 08/16/2021 documented in this encounter Results * SCAN - LABS (08/16/2021) us Provider Scanning Final Result documented in this encounter Visit Diagnoses Not on filedocumented in this encounter Care Teams Asthma Educator Relationship Specialty Start Date End Date Julio César Briseno MD PCP - General 10/01/16 Eren Cr MD Referring Physician Medical Oncology 11/25/18 Yohana Bowen MD Radiation Oncologist Radiation Oncology 11/25/18 Sabrina Willard NP [address] [place] [address] Nurse Practitioner Medical Oncology 08/17/20 11/26/21 documented as of this encounter
--- OUTSIDE RECORDS SUMMARY | 2024-06-25 22:24 | XMS_ITS | Encounter Summary ---
Author Organization [facility] Address [address] [place] [address] Phone Care Team Providers Care Hay Stacker Name Role Phone Julio César Briseno MD Primary Care Provider [phone] Eren Cr MD Unavailable [phone] Yohana Bowen MD Unavailable Sabrina Willard NP Unavailable [phone] Reason for Referral * MRI/CAT/PET Scan (Routine) - Closed Specialty Diagnoses / Procedures Referred By Contac t Referred To Contact Radiology Diagnoses Neuro-endocrine carcinoma (HCC) Procedures MRI Brain W WO Contrast Eren Cr MD [address] [place] [address] Phone: tel: fax: [address] [address] Referral ID Status Reason Start Date Expiration Date Visits Re quested Visits Authorized [id number] Closed 08/18/2021 09/17/2022 1 1 STANT LIBRARIAN Encounter Details Date Type Department Care Team (Late st Contact Info) Description 08/18/2021 Orders Only [facility] Oncology [address] 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 Gender Identity Not on file Sexual Orientation Straight 02/19/2021 9: 29 AM CDT Occupation Industry Job Start Date Job End Date retired Not on file Not on file Not on file documented as of this encounter Plan of Treatment Scheduled Orders Name Type Priority Associated Diagnoses Orde r Schedule MRI Brain W WO Contrast Imaging Schedule Routine, Read Routine (OP Routine) Neuro-endocrine carcinoma (CMS/HCC) (HCC) Expected: 08/21/2021 (Approximate), Expires: 08/18/2022 documented as of this encounter Visit Diagnoses Diagnosis Neuro-endocrine carcinoma (HCC)- Primary Other malignant neoplasm of unspecified site documented in this encounter Care Teams Hay Stacker Relationship Specialty Start Date End Date Julio César Briseno MD PCP - General 10/01/16 Eren Cr MD Referring Physician Medical Oncology 11/25/18 Yohana Bowen MD Radiation Oncologist Radiation Oncology 11/25/18 Sabrina Willard NP [address] [place] [address] Nurse Practitioner Medical Oncology 08/17/20 11/26/21 documented as of this encounter
--- OUTSIDE RECORDS SUMMARY | 2024-06-25 22:24 | XMS_ITS | Encounter Summary ---
Author Organization [facility] Address [address] [place] [address] Phone Care Team Providers Care Property Insurance Inspector Name Role Phone Julio César Briseno MD Primary Care Provider [phone] Eren Cr MD Unavailable [phone] Yohana Bowen MD Unavailable Sabrina Willard NP Unavailable [phone] Encounter Details Date Type Department Care Team (Late st Contact Info) Description 09/12/2021 Orders Only [facility] Oncology [address] [facility] 7th [place] [address] [place] [address] Elaine Coy Bone metastasis (CMS/HCC) (HCC) (Primary Dx); Neuro-endocrine carcinoma (CMS/HCC) (HCC) Social [...] on file Legal Sex Female 2:41 PM UM NURSE Gender Identity Not on file Sexual [...] Ordered Date ONCBCN STUDY LAB 1 1 09/18/2021 documented in this encounter Additional Health Concerns Infection Onset Date Last Indicated Resolved Time Exposure, COVID-19 Comment:Added automatically based on COVID19 lab answers indicating exposure risk 09/04/2021 09/04/2021 09/14/2021 3:[address] documented as of this encounter Care Teams Property Insurance Inspector Relationship Specialty Start Date End Date Julio César Briseno MD PCP - General 10/01/16 Eren Cr MD Referring Physician Medical Oncology 11/25/18 Yohana Bowen MD Radiation Oncologist Radiation Oncology 11/25/18 Sabrina Willard NP [address] [place] [address] Nurse Practitioner Medical Oncology 08/17/20 11/26/21 documented as of this encounter
--- OUTSIDE RECORDS SUMMARY | 2024-06-25 22:24 | XMS_ITS | Encounter Summary ---
Author Organization [facility] Address [address] [place] [address] Phone Care Team Providers Care Foot Tender Name Role Phone Julio César Briseno MD Primary Care Provider Eren Cr MD Unavailable [phone] Yohana Bowen MD Unavailable Sabrina Willard NP Unavailable [phone] Reason for Visit * Reason Onset Date Comments Scheduling Appointments 09/05/2021 Encounter Details Date Type Department Care Team (Late st Contact Info) Description 09/05/2021 Telephone [facility] Oncology [address] [facility] 7th [place] [address] Kyle Maharaj RMA Scheduling Appointments Social History Tobacco Use Types Packs/Day Years [...] on file Legal Sex Female 2:41 PM RECYCLING CREW SUPERVISOR Gender Identity Not on file Sexual Orientation Straight 02/19/2021 9: 29 AM CDT Occupation Industry Job Start Date Job End Date retired Not on file Not on file Not on file documented as of this encounter Miscellaneous Notes * Telephone Encounter - Kyle Maharaj RMA - 09/05/2021 10:01 AM RECYCLING CREW SUPERVISOR Spoke with the patient regarding gamal. Update, pt. Was given time and directions to the CCC. CLING CREW SUPERVISOR * Telephone Encounter - Kyle Maharaj RMA - 09/05/2021 10:00 AM RECYCLING CREW SUPERVISOR ----- Message from Fariha Heredia sent at 09/05/2021 8:49 AM RECYCLING CREW SUPERVISOR ----- Regarding: RE: appt. req. Yes, she needs to come for IVF today if there is availablility for it please. Thank you, fariha ----- Message ----- From: Kyle Maharaj RMA Sent: 09/05/2021 8:40 AM RECYCLING CREW SUPERVISOR To: Meek [facility] Clinical Support Subject: appt. req. Good morning There is a req. To gamal the patient for an Infusion for (today), the appt. Req. Was entered in at [id number]... does the patient still need the infusion (today)? CLING CREW SUPERVISOR documented in this encounter Plan of Treatment Not on file documented as of this encounter Visit Diagnoses Not on filedocumented in this encounter Additional Health Concerns Infection Onset Date Last Indicated Resolved Time Exposure, COVID-19 Comment:Added automatically based on COVID19 lab answers indicating exposure risk 09/04/2021 09/04/2021 09/14/2021 3:[address] documented as of this encounter Care Teams Foot Tender Relationship Specialty Start Date End Date Julio César Briseno MD PCP - General 10/01/16 Eren Cr MD Referring Physician Medical Oncology 11/25/18 Yohana Bowen MD Radiation Oncologist Radiation Oncology 11/25/18 Sabrina Willard NP [address] [place] [address] Nurse Practitioner Medical Oncology 08/17/20 11/26/21 documented as of this encounter
--- OUTSIDE RECORDS SUMMARY | 2024-06-25 22:24 | XMS_ITS | Encounter Summary ---
Author Organization [facility] Address [address] [place] [address] Phone Care Team Providers Care Development Educator Name Role Phone Julio César Briseno MD Primary Care Provider Eren Cr MD Unavailable [phone] Yohana Bowen MD Unavailable Sabrina Willard NP Unavailable Encounter Details Date Type Department Care Team (Late st Contact Info) Description 08/16/2021 Orders Only [facility] Oncology [address] [facility] 7th [place] [address] [place] [address] Eren Cr MD [facility] [address] [place] [address] 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) [...] file Legal Sex Female 2:41 PM GLASS CUTTING MACHINE OPERATOR Gender Identity Not on file Sexual Orientation Straight 02/19/2021 9: 29 AM CDT Occupation Industry Job Start Date Job End Date retired Not on file Not on file Not on file documented as of this encounter Plan of Treatment Not on file documented as of this encounter Results * (ABNORMAL) Chromogranin A (08/21/2021 9:22 AM GLASS CUTTING MACHINE OPERATOR) Chromogranin A 877(H) <93 ng/mL JASON LEAVITT [...] a homogeneous time-resolved immunofluorescent assay manufactured by [employer] and performed on the Liquid X Kryptor Compact Plus. ? Values obtained with different assay methods or kits may be different and cannot be used interchangeably. ? Test results cannot be interpreted as absolute evidence for the presence or absence of malignant disease. Test Performed by: [facility] [address] [address] Political Director: Immanuel Novak M.D. Ph.D.; CLIA# [id number] Blood 08/21/2021 9:22 AM GLASS CUTTING MACHINE OPERATOR 08/21/2021 10:06 AM GLASS CUTTING MACHINE OPERATOR us Joelle Eugene APPLICATIONS PROGRAMMER ANALYST LAB BLOOD ORDERABLES Fi nal Result JASON BLACK [facility] Department [place] [address] * Phosphorus (08/21/2021 9:18 AM GLASS CUTTING MACHINE OPERATOR) [facility] Phosphorus, pl 2.9 2.3 - 4.5 mg/dL [facility] Comment:Testing performed by : [facility], [address] [place] [phone] Blood 08/21/2021 9:18 AM GLASS CUTTING MACHINE OPERATOR 08/21/2021 9:20 AM GLASS CUTTING MACHINE OPERATOR Joelle Eugene APPLICATIONS PROGRAMMER ANALYST LAB BLOOD ORDERABLES Fi nal Result Performing Organization Address [facility] Co de Phone Number [facility] Laboratories [place], [place] [id number] * Magnesium (08/21/2021 9:18 AM GLASS CUTTING MACHINE OPERATOR) [facility] Magnesium 1.4 1.4 - 2.5 mg/dL [facility] Comment:Testing performed by : [facility], [address] [place] [phone] Blood 08/21/2021 9:18 AM GLASS CUTTING MACHINE OPERATOR 08/21/2021 9:20 AM GLASS CUTTING MACHINE OPERATOR Joelle Eugene APPLICATIONS PROGRAMMER ANALYST LAB BLOOD ORDERABLES Fi nal Result Performing Organization Address [facility] Co de Phone Number [facility] of Laboratories [place], [place] [id number] * (ABNORMAL) Comprehensive metabolic panel (08/21/2021 9:18 AM GLASS CUTTING MACHINE OPERATOR) [facility] Sodium 138 135 - 145 mmol/L [facility] Comment:Testing performed by : [facility], [address] [place] [phone] Potassium, pl 4.1 3.3 - 4.9 mmol/L [facility] Comment:Testing performed by : [facility], [address] [place] [phone] Chloride 102 97 - 110 mmol/L [facility] Comment:Testing performed by : [facility], [address] [place] [phone] CO2 25 22 - 32 mmol/L [facility] Comment:Testing performed by : [facility], [address] [place] [phone] Anion gap 11 2 - 15 mmol/L [facility] Comment:Testing performed by : [facility], [address] [place] [phone] BUN 16 8 - 25 mg/dL [facility] Comment:Testing performed by : [facility], [address] [place] [phone] Creatinine 1.19(H) 0.60 - 1.10 mg/dL [facility] Comment:Testing performed by : [facility], [address] [place] [phone] Glucose 129 70 - 199 mg/dL CERNER [...] was last revised 2017. Testing performed by: [facility], [address] [place] [phone] Calcium 10.9(H) 8.5 - 10.3 mg/dL [facility] Comment:Testing performed by : [facility], [address] [place] [phone] Bilirubin, total 0.8 0.1 - 1.2 mg/dL [facility] Comment:Testing performed by : [facility], [address] [place] [phone] Protein, pl 6.8 6.5 - 8.5 g/dL [facility] Comment:Testing performed by : [facility], [address] [place] [phone] Albumin 4.2 3.5 - 5.0 g/dL [facility] Comment:Testing performed by : [facility], [address] [place] [phone] Alk phos 106 40 - 130 Units/L JASON BLACK Comment:Testing performed by : [facility], [address] [place] [phone] ALT 33 7 - 45 Units/L [facility] BLACK Comment:Testing performed by : [facility], [address] [place] [phone] AST 45 10 - 45 Units/L [facility] BLACK Comment:Testing performed by : [facility], [address] [place] [phone] Blood 08/21/2021 9:18 AM GLASS CUTTING MACHINE OPERATOR 08/21/2021 9:20 AM GLASS CUTTING MACHINE OPERATOR oJelle Eugene APPLICATIONS PROGRAMMER ANALYST LAB BLOOD ORDERABLES Fi nal Result [facility]ASON BLACK [facility] Department [place] [address] * (ABNORMAL) CBC with auto differential (08/21/2021 9:18 AM GLASS CUTTING MACHINE OPERATOR) WBC 3.1(L) 3.8 - 9.8 K/cumm JASON BLACK Comment:Testing performed by : [facility], [address] [place] [phone] Hgb 15.5(H) 12.1 - 15.1 g/dL [facility] BL[facility] Comment:Testing performed by : [facility], [address] [place] [phone] Hct 43.2 36.1 - 44.3 % JASON BLACK Comment:Testing performed by : [facility], [address] [place] [phone] Plt 99(L) 140 - 440 K/cumm JASON BLACK Comment:Testing performed by : [facility], [address] [place] [phone] MPV 8.8 6.8 - 10.4 fL [facility] BLACK Comment:Testing performed by : [address] [phone] RBC 4.96 3.90 - 5.00 M/cumm [facility] Comment:Testing performed by : [facility], [address] [place] [phone] MCV 87.0 80.0 - 97.6 fL [facility] Comment:Testing performed by : [facility], [address] [place] [phone] MCH 31.2 26.7 - 33.7 pg [facility] Comment:Testing performed by : [facility], [address] [place] [phone] MCHC 35.8(H) 32.7 - 35.5 g/dL [facility] Comment:Testing performed by : [facility], [address] [place] [phone] RDW CV 13.8 11.8 - 14.6 % [facility] Comment:Testing performed by : [facility], [address] [place] [phone] NRBC abs 0.08(H) 0.00 - 0.01 K/cumm [facility] Comment:Testing performed by : [facility], [address] [place] [phone] Blood 08/21/2021 9:18 AM GLASS CUTTING MACHINE OPERATOR 08/21/2021 9:20 AM GLASS CUTTING MACHINE OPERATOR Joelle Eugene APPLICATIONS PROGRAMMER ANALYST LAB BLOOD ORDERABLES Fi nal Result Performing Organization Address [facility]/ZIP Co de Phone Number [facility] Department [place] [address] * (ABNORMAL) Vitamin D 25 hydroxy (08/21/2021 9:18 AM GLASS CUTTING MACHINE OPERATOR) Vitamin D 25-OH 27(L) 30 - 80 ng/mL [facility] Blood 08/21/2021 9:18 AM GLASS CUTTING MACHINE OPERATOR 08/21/2021 9:57 AM GLASS CUTTING MACHINE OPERATOR Joelle Eugene APPLICATIONS PROGRAMMER ANALYST LAB BLOOD ORDERABLES Fi nal Result Performing Organization Address [facility]/ZIP Co de Phone Number [facility] Department [place] [address] * (ABNORMAL) Lipid panel (08/21/2021 9:18 AM GLASS CUTTING MACHINE OPERATOR) [facility] Cholesterol 187 30 - 199 mg/dL JASON BLACK Comment: [...] on 2018. Triglycerides 226(H) <=149 mg/dL [facility] Comment: Interpretive Data Ages < [...] revised on 2018. HDL 67 >=40 mg/dL [facility] Comment: Interpretive Data Ages < [...] on 2018. LDL, calculated 75 <=129 mg/dL [facility] Comment: Interpretive Data Ages < [...] revised on 2018. Non-HDL Cholesterol 120 mg/dL [facility] Comment: Interpretive Data Ages < [...] revised on 2018. Chol/HDL ratio 3 [facility] Blood 08/21/2021 9:18 AM GLASS CUTTING MACHINE OPERATOR 08/21/2021 9:57 AM GLASS CUTTING MACHINE OPERATOR us Joelle Eugene APPLICATIONS PROGRAMMER ANALYST LAB BLOOD ORDERABLES Fi nal Result [facility] Department [place] [address] documented in this encounter Visit Diagnoses Diagnosis Malignant neoplasm metastatic to liver (HCC)- Primary Neuroendocrine carcinoma (HCC) Other malignant neoplasm of unspecified site Neuro-endocrine carcinoma (HCC) Other malignant neoplasm of unspecified site documented in this encounter Orders Appointment Requests Count Last Ordered Date Fi rst Ordered Date ONCBCN INJECTION APPOINTMENT REQUEST 1 08/08 ONCBCN LAB APPOINTMENT 1 08/21/2021 ONCBCN TAKE HOME STUDY DRUG APPT 1 08/21/19 documented in this encounter Care Teams Development Educator Relationship Specialty Start Date End Date Julio César Briseno MD PCP - General 10/01/16 Eren Cr MD Referring Physician Medical Oncology 11/25/18 Yohana Bowen MD Radiation Oncologist Radiation Oncology 11/25/18 Sabrina Willard NP [address] [place] [address] Nurse Practitioner Medical Oncology 08/17/20 11/26/21 documented as of this encounter
--- OUTSIDE RECORDS SUMMARY | 2024-06-25 22:24 | XMS_ITS | Encounter Summary ---
Author Organization [facility] Address [address] [place] [address] Phone Care Team Providers Care Pack Worker Supervisor Name Role Phone Julio César Briseno MD Primary Care Provider [phone] Eren Cr MD Unavailable [phone] Yohana Boewn MD Unavailable Sabrina Willard NP Unavailable [phone] Reason for Visit * Episode Based Medications (Routine) - Closed Specialty Diagnoses / Procedures Referred By Contac t Referred To Contact Diagnoses Neuro-endocrine carcinoma (HCC) Procedures study [id number] phase III cabozantinib Eren Cr MD [address] [facility] [address] [place] [address] Phone: tel: fax: [facility] [address] [facility] 7th [place] [address] Phone: tel: Referral ID Status Reason Start Date Expiration Date Visits Re quested Visits Authorized [id number] Closed 06/21/2021 06/26/2024 1 99 Encounter Details Date Type Department Care Team (Late st Contact Info) Description 08/07/2021 2:00 PM CARE PROCESS MANAGER Lab [facility] Oncology [address] [facility] 7th [place] [address] [place] [phone] Neuro-endocrine carcinoma (CMS/HCC) (HCC); Neuroendocrine carcinoma (CMS/HCC) (HCC) Social [...] file Legal Sex Female 2:41 PM CARE PROCESS MANAGER Gender Identity Not on file Sexual Orientation Straight 02/19/2021 9: 29 AM CDT Occupation Industry Job Start Date Job End Date retired Not on file Not on file Not on file documented as of this encounter Plan of Treatment Not on file documented as of this encounter Procedures Procedure Name Priority Date/Time Associated Diagnosis Comments EGFR STAT 08/07/2021 2:12 PM CARE PROCESS MANAGER Neuro-endocrine carcinoma (CMS/HCC) (HCC) DIFFERENTIAL AUTO STAT 08/07/2021 2:1 2 PM CARE PROCESS MANAGER Neuro-endocrine carcinoma (CMS/HCC) (HCC) CBC WITH AUTO DIFFERENTIAL STAT 08/07/2021 2:12 PM CARE PROCESS MANAGER Neuro-endocrine carcinoma (CMS/HCC) (HCC) PHOSPHORUS STAT 08/07/2021 2:12 PM CARE PROCESS MANAGER Neuro-endocrine carcinoma (CMS/HCC) (HCC) MAGNESIUM STAT 08/07/2021 2:12 PM CARE PROCESS MANAGER Neuro-endocrine carcinoma (CMS/HCC) (HCC) COMPREHENSIVE METABOLIC PANEL STAT 08/07/2021 2:12 PM CARE PROCESS MANAGER Neuro-endocrine carcinoma (CMS/HCC) (HCC) documented in this encounter Results * (ABNORMAL) eGFR (08/07/2021 2:12 PM CARE PROCESS MANAGER) eGFR 63(L) 90 - 130 mL/min/1. 73 m2 JASON [...] was last reviewed 2021. Testing performed by: [facility], [address] [place] [phone] Blood 08/07/2021 2:12 PM CARE PROCESS MANAGER 08/07/2021 2:15 PM CARE PROCESS MANAGER us Eren Cr MD LAB BLOOD ORDERABLES Final Re sult JASON BLACK [facility] [place] [address] * (ABNORMAL) Differential, auto (08/07/2021 2:12 PM CARE PROCESS MANAGER) Pathologist [facility] Neutrophil abs 3.1 1.8 - 6.6 K/cumm [facility] Comment:Testing performed by : [facility], [address] [place] [phone] Lymphocyte abs 0.6(L) 1.2 - 3.3 K/cumm [facility] Comment:Testing performed by : [facility], [address] [place] [phone] Monocyte abs 0.3 0.2 - 1.2 K/cumm [facility] Comment:Testing performed by : [facility], [address] [place] [phone] Eosinophil abs 0.1 0.0 - 0.5 K/cumm [facility] Comment:Testing performed by : [facility], [address] [place] [phone] Basophil abs 0.0 0.0 - 0.2 K/cumm [facility] Comment:Testing performed by : [facility], [address] [place] [phone] Neutrophil pct 76.3 % [facility] Comment: Interpretive Data Percent cell count reference ranges are not reported, since discordance with absolute values may lead to misinterpretation of CBC data. Current Interpretive Data was last revised on 2017. Testing performed by: [facility], [address] [place] [phone] Lymphocyte pct 13.5 % [facility] Comment: Interpretive Data Percent cell count reference ranges are not reported, since discordance with absolute values may lead to misinterpretation of CBC data. Current Interpretive Data was last revised on 2017. Testing performed by: [facility], [address] [place] [phone] Monocyte pct 7.2 % [facility] Comment:Testing performed by : [facility], [address] [place] [phone] Eosinophil pct 2.4 % [facility] Comment:Testing performed by : [facility], [address] [place] [phone] Basophil pct 0.6 % [facility] Comment:Testing performed by : [facility], [address] [place] [phone] Blood 08/07/2021 2:12 PM CARE PROCESS MANAGER 08/07/2021 2:15 PM CARE PROCESS MANAGER us Eren Cr MD LAB BLOOD ORDERABLES Final Re sult [facility] [place] [address] * (ABNORMAL) CBC with auto differential (08/07/2021 2:12 PM CARE PROCESS MANAGER) WBC 4.1 3.8 - 9.8 K/cumm JASON BLACK Comment:Testing performed by : [facility], [address] [place] [phone] Hgb 14.2 12.1 - 15.1 g/dL JASON BLACK Comment:Testing performed by : [address] [phone] Hct 40.4 36.1 - 44.3 % JASON BLACK Comment:Testing performed by : [address] [phone] Plt 103(L) 140 - 440 K/cumm JASON BLACK Comment:Testing performed by : [address] [phone] MPV 8.1 6.8 - 10.4 fL CERMINNIE BLACK Comment:Testing performed by : [address] [phone] RBC 4.60 3.90 - 5.00 M/cumm JASON BLACK Comment:Testing performed by : [address] [phone] MCV 87.8 80.0 - 97.6 fL JASON [facility] Comment:Testing performed by : [address] [phone] MCH 30.9 26.7 - 33.7 pg CERMINNIE [facility]J Comment:Testing performed by : [address] [phone] MCHC 35.2 32.7 - 35.5 g/dL JASON BLACK Comment:Testing performed by : [address] [phone] RDW CV 13.5 11.8 - 14.6 % JASON BLACK Comment:Testing performed by : [facility], [address] [place] [phone] NRBC abs 0.00 0.00 - 0.01 K/cumm JASON BLACK Comment:Testing performed by : [facility], [address] [place] [phone] Blood 08/07/2021 2:12 PM CARE PROCESS MANAGER 08/07/2021 2:15 PM CARE PROCESS MANAGER us Eren Cr MD LAB BLOOD ORDERABLES Final Re sult JASON BLACK [facility] [place] [address] * (ABNORMAL) Comprehensive metabolic panel (08/07/2021 2:12 PM CARE PROCESS MANAGER) Sodium 139 135 - 145 mmol/L JASON BLACK Comment:Testing performed by : [facility], [address] [place] [phone] Potassium, pl 4.2 3.3 - 4.9 mmol/L JASON BLACK Comment:Testing performed by : [facility], [address] [place] [phone] Chloride 103 97 - 110 mmol/L JASON BLACK Comment:Testing performed by : [facility], [address] [place] [phone] CO2 29 22 - 32 mmol/L JASON BLACK Comment:Testing performed by : [facility], [address] [place] [phone] Anion gap 7 2 - 15 mmol/L JASON BLACK Comment:Testing performed by : [facility], [address] [place] [phone] BUN 9 8 - 25 mg/dL JASON BLACK Comment:Testing performed by : [facility], [address] [place] [phone] Creatinine 0.96 0.60 - 1.10 mg/dL JASON BLACK Comment:Testing performed by : [facility], [address] [place] [phone] Glucose 111 70 - 199 mg/dL CERNER [...] revised 2017. Testing performed by: [facility], [address] [place] [phone] Calcium 10.6(H) 8.5 - 10.3 mg/dL CERNER [facility] Comment:Testing performed by : [address] [phone] Bilirubin, total 0.6 0.1 - 1.2 mg/dL CERNER BJ Comment:Testing performed by : [facility], [address] [place] [phone] Protein, pl 6.7 6.5 - 8.5 g/dL CERNER [facility]J Comment:Testing performed by : [address] [phone] Albumin 4.3 3.5 - 5.0 g/dL CERNER [facility]J Comment:Testing performed by : [address] [phone] Alk phos 107 40 - 130 Units/L CERNER [facility] Comment:Testing performed by : [address] [phone] ALT 33 7 - 45 Units/L CERNER [facility] Comment:Testing performed by : [address] [phone] AST 42 10 - 45 Units/L [facility]ER [facility] Comment:Testing performed by : [address] [phone] Blood 08/07/2021 2:12 PM CARE PROCESS MANAGER 08/07/2021 2:15 PM CARE PROCESS MANAGER Eren Cr MD LAB BLOOD ORDERABLES Final Re sult Performing Organization Address [facility] [address] [facility] [place] [address] * Magnesium (08/07/2021 2:12 PM CARE PROCESS MANAGER) Magnesium 1.6 1.4 - 2.5 mg/dL [facility] Comment:Testing performed by : [facility], [address] [place] [phone] Blood 08/07/2021 2:12 PM CARE PROCESS MANAGER 08/07/2021 2:15 PM CARE PROCESS MANAGER Result [facility] Eren Cr MD LAB BLOOD ORDERABLES Final Re sult Performing Organization Address [facility] [place] [address] * Phosphorus (08/07/2021 2:12 PM CARE PROCESS MANAGER) Phosphorus, pl 2.4 2.3 - 4.5 mg/dL [facility] Comment:Testing performed by : [facility], [address] [place] [phone] Blood 08/07/2021 2:12 PM CARE PROCESS MANAGER 08/07/2021 2:15 PM CARE PROCESS MANAGER Result [facility] Eren Cr MD LAB BLOOD ORDERABLES Final Re sult Performing Organization Address [facility] [address]/[facility] [place] [address] documented in this encounter Visit Diagnoses Diagnosis Neuro-endocrine carcinoma (HCC) Other malignant neoplasm of unspecified site Neuroendocrine carcinoma (HCC) Other malignant neoplasm of unspecified site documented in this encounter Orders Lab Orders Without Results Count Last Ordered D ate First Ordered Date ONCBCN STUDY LAB 1 1 08/07/2021 Appointment Requests Count Last Ordered Date Fi rst Ordered Date ONCBCN LAB APPOINTMENT 1 08/07/2021 documented in this encounter Care Teams Pack Worker Supervisor Relationship Specialty Start Date End Date Julio César Briseno MD PCP - General 10/01/16 Eren Cr MD Referring Physician Medical Oncology 11/25/18 Yohana Bowen MD Radiation Oncologist Radiation Oncology 11/25/18 Sabrina Willard NP [address] [place] [address] Nurse Practitioner Medical Oncology 08/17/20 11/26/21 documented as of this encounter
--- OUTSIDE RECORDS SUMMARY | 2024-06-25 22:24 | XMS_ITS | Encounter Summary ---
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) Procedures OK OCTREOTIDE INJECTION, DEPOT Octreotide 28 Day Cycles - Carcinoid Eren Cr MD [address] [facility] [address] [place] [address] Phone: tel: fax: [facility] Cancer [address] [address] Phone: tel: fax: Referral ID Status Reason Start Date Expiration Date V isits Requested Visits Authorized [id number] Authorized 11/28/2017 02/05/2025 1 150 Encounter Details Date Type Department Care Team (Latest Contact Info) Description 09/18/2021 12:45 PM CDT Clinical Support [facility] Oncology [address] [facility] 7th [place] [address] [place] [address] Neuroendocrine carcinoma (CMS/HCC) (HCC) (Primary Dx); 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); Neuro-endocrine carcinoma (CMS/HCC) (HCC); Metastasis to liver (CMS/HCC) (HCC) Social History Tobacco [...] on file 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 Gender Identity Not on file Sexual Orientation Straight 02/19/2021 9: 29 AM CDT Occupation Industry Job Start Date Job End Date retired Not on file Not on file Not on file documented as of this encounter Plan of Treatment Not on file documented as of this encounter Procedures Procedure Name Priority Date/Time Associated Diagnosis Comments PROTEIN / CREATININE RATIO, URINE, RANDOM Routine 09/18/2021 3:50 PM CDT Neuroendocrine carcinoma (CMS/HCC) (HCC) EGFR STAT 09/18/2021 1:21 PM CDT 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) DIFFERENTIAL AUTO Routine 09/18/2021 1:2 1 PM CDT 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) CHROMOGRANIN A Routine 09/18/2021 1:21 PM CDT 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) CBC WITH AUTO DIFFERENTIAL Routine 09/18/2021 1:21 PM CDT 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) VITAMIN D 25 HYDROXY Routine 09/18/2021 1:21 PM CDT 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) PHOSPHORUS Routine 09/18/2021 1:21 PM CDT 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) MAGNESIUM STAT 09/18/2021 1:21 PM CDT Neuro-endocrine carcinoma (CMS/HCC) (HCC) LIPID PANEL Routine 09/18/2021 1:21 PM CDT 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) COMPREHENSIVE METABOLIC PANEL STAT 09/18/2021 1:21 PM CDT 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) documented in this encounter Results * Protein / creatinine ratio, urine, random (09/18/2021 3:50 PM CDT) Protein, ur, quant 48.3 mg/dL [facility] Comment: Interpretive Data No reference range established. Current interpretive data was last revised 2018. Creatinine Ur 366.0 mg/dL [facility] Comment: Interpretive Data No reference range established. Current interpretive data was last revised 2018. Protein/creatinin e ratio 132.0 0.0 - 180.0 mg/g CR [facility] Urine 09/18/2021 3:50 PM CDT 09/18/2021 4:59 PM CDT us Eren Cr MD LAB URINE ORDERABLES Final Re sult [facility] Department [place] [address] * (ABNORMAL) eGFR (09/18/2021 1:21 PM CDT) Pathologist [facility] eGFR 35(L) 90 - 130 mL/min/1. 73 m2 JASON [...] Testing performed by: [facility], [address] [place] [phone] Blood 09/18/2021 1:21 PM CDT 09/18/2021 1:23 PM CDT us Eren Cr MD LAB BLOOD ORDERABLES Final Re sult [facility] Department [place] [address] * (ABNORMAL) Differential, auto (09/18/2021 1:21 PM CDT) Neutrophil abs 1.8 1.8 - 6.6 K/cumm [facility] Comment:Testing performed by : [facility], [address] [place] [phone] Lymphocyte abs 0.7(L) 1.2 - 3.3 K/cumm [facility] Comment:Testing performed by : [facility], [address] [place] [phone] Monocyte abs 0.3 0.2 - 1.2 K/cumm [facility] Comment:Testing performed by : [facility], [address] [place] [phone] Eosinophil abs 0.2 0.0 - 0.5 K/cumm [facility] Comment:Testing performed by : [facility], [address] [place] [phone] Basophil abs 0.0 0.0 - 0.2 K/cumm [facility] Comment:Testing performed by : [facility], [address] [place] [phone] Neutrophil pct 61.3 % [facility] Comment: Interpretive Data Percent cell count reference ranges are not reported, since discordance with absolute values may lead to misinterpretation of CBC data. Current Interpretive Data was last revised on 2017. Testing performed by: [facility], [address] [place] [phone] Lymphocyte pct 22.9 % [facility] Comment: Interpretive Data Percent cell count reference ranges are not reported, since discordance with absolute values may lead to misinterpretation of CBC data. Current Interpretive Data was last revised on 2017. Testing performed by: [facility], [address] [place] [phone] Monocyte pct 9.6 % [facility] Comment:Testing performed by : [facility], [address] [place] [phone] Eosinophil pct 5.4 % [facility] Comment:Testing performed by : [facility], [address] [place] [phone] Basophil pct 0.8 % [facility] Comment:Testing performed by : [facility], [address] [place] [phone] Blood 09/18/2021 1:21 PM CDT 09/18/2021 1:23 PM CDT Eren Cr MD LAB BLOOD ORDERABLES Final Re sult Performing Organization Address [facility] Co de Phone Number [facility] One [facility] Department [place] [address] * (ABNORMAL) Magnesium (09/18/2021 1:21 PM CDT) Magnesium 1.2(L) 1.4 - 2.5 mg/dL [facility] Comment:Testing performed by : [facility], [address] [place] [phone] Blood 09/18/2021 1:21 PM CDT 09/18/2021 1:23 PM CDT Eren Cr MD LAB BLOOD ORDERABLES Final Re sult Performing Organization Address [facility] Co de Phone Number [facility] Department [place] [address] * (ABNORMAL) Lipid panel (09/18/2021 1:21 PM CDT) Cholesterol 179 30 - 199 mg/dL [facility] Comment: [...] revised on 2018. Triglycerides 301(H) <=149 mg/dL [facility] Comment: Interpretive [...] revised on 2018. HDL 59 >=40 mg/dL [facility] Comment: Interpretive Data Ages [...] 2018. LDL, calculated 60 <=129 mg/dL [facility] Comment: Interpretive Data Ages [...] 2018. Chol/HDL ratio 3 [facility] Blood 09/18/2021 1:21 PM CDT 09/18/2021 2:00 PM CDT us Eren Cr MD LAB BLOOD ORDERABLES Final Re sult [facility] Department [place] [address] * (ABNORMAL) Phosphorus (09/18/2021 1:21 PM CDT) Phosphorus, pl 2.1(L) 2.3 - 4.5 mg/dL [facility] Comment:Testing performed by : [facility], [address] [place] [phone] Blood 09/18/2021 1:21 PM CDT 09/18/2021 1:23 PM CDT Eren Cr MD LAB BLOOD ORDERABLES Final Re sult Performing Organization Address [facility] Co de Phone Number [facility] [place] [address] * Vitamin D 25 hydroxy (09/18/2021 1:21 PM CDT) Pathologist [facility] Vitamin D 25-OH 33 30 - 80 ng/mL [facility] Blood 09/18/2021 1:21 PM CDT 09/18/2021 2:00 PM CDT Eren Cr MD LAB BLOOD ORDERABLES Final Re sult Performing Organization Address [facility] de Phone Number [facility] Department [place] [address] * (ABNORMAL) CBC with auto differential (09/18/2021 1:21 PM CDT) [facility] WBC 3.0(L) 3.8 - 9.8 K/cumm [facility] Comment:Testing performed by : [facility], [address] [place] [phone] Hgb 13.1 12.1 - 15.1 g/dL [facility] Comment:Testing performed by : [facility], [address] [place] [phone] Hct 36.9 36.1 - 44.3 % [facility] Comment:Testing performed by : [facility], [address] [place] [phone] Plt 71(L) 140 - 440 K/cumm [facility] Comment:Testing performed by : [facility], [address] [place] [phone] MPV 8.5 6.8 - 10.4 fL [facility] Comment:Testing performed by : [facility], [address] [place] [phone] RBC 4.14 3.90 - 5.00 M/cumm [facility] Comment:Testing performed by : [facility], [address] [place], [place] [phone] MCV 89.0 80.0 - 97.6 fL [facility] Comment:Testing performed by : [facility], [address] [place] [phone] MCH 31.6 26.7 - 33.7 pg [facility] Comment:Testing performed by : [facility], [address] [place] [phone] MCHC 35.5 32.7 - 35.5 g/dL [facility] Comment:Testing performed by : [place] [phone] RDW CV 16.1(H) 11.8 - 14.6 % [facility] Comment:Testing performed by : [facility], [address] [place] [phone] NRBC abs 0.00 0.00 - 0.01 K/cumm [facility] Comment:Testing performed by : [address] [phone] Blood 09/18/2021 1:21 PM CDT 09/18/2021 1:23 PM CDT Eren Cr MD LAB BLOOD ORDERABLES Final Re sult [facility] Department [place] [address] * (ABNORMAL) Comprehensive metabolic panel (09/18/2021 1:21 PM CDT) Sodium 137 135 - 145 mmol/L [facility] Comment:Testing performed by : [address] [phone] Potassium, pl 3.8 3.3 - 4.9 mmol/L [facility] Comment:Testing performed by : [facility], [address] [place] [phone] Chloride 104 97 - 110 mmol/L [facility] Comment:Testing performed by : [facility], [address] [place] [phone] CO2 24 22 - 32 mmol/L [facility] Comment:Testing performed by : [facility], [address] [place] [phone] Anion gap 10 2 - 15 mmol/L [facility] Comment:Testing performed by : [facility], [address] [place] [phone] BUN 28(H) 8 - 25 mg/dL [facility] Comment:Testing performed by : [facility], [address] [place] [phone] Creatinine 1.55(H) 0.60 - 1.10 mg/dL [facility] Comment:Testing performed by : [facility], [address] [place] [phone] Glucose 129 70 - 199 mg/dL [facility] [...] was last revised 2017. Testing performed by: [facility], [address] [place] [phone] Calcium 10.6(H) 8.5 - 10.3 mg/dL [facility] Comment:Testing performed by : [facility], [address] [place] [phone] Bilirubin, total 0.9 0.1 - 1.2 mg/dL [facility] Comment:Testing performed by : [facility], [address] [place] [phone] Protein, pl 6.7 6.5 - 8.5 g/dL [facility] Comment:Testing performed by : [facility], [address] [place] [phone] Albumin 4.1 3.5 - 5.0 g/dL [facility] Comment:Testing performed by : [facility], [address] [place] [phone] Alk phos 98 40 - 130 Units/L [facility] Comment:Testing performed by : [facility], [address] [place] [phone] ALT 39 7 - 45 Units/L [facility] Comment:Testing performed by : [facility], [address] [place] [phone] AST 54(H) 10 - 45 Units/L [facility] Comment:Testing performed by : [facility], [address] [place] [phone] Blood 09/18/2021 1:21 PM CDT 09/18/2021 1:23 PM CDT Eren Cr MD LAB BLOOD ORDERABLES Final Re sult [facility] Department [place] [address] * (ABNORMAL) Chromogranin A (09/18/2021 1:21 PM CDT) Chromogranin A 912(H) <93 ng/mL [facility] Comment: Impaired renal or hepatic function [...] a homogeneous time-resolved immunofluorescent assay manufactured by [employer] and performed on the [employer] Kryptor Compact Plus. ? Values obtained with different assay methods or kits may be different and cannot be used interchangeably. ? Test results cannot be interpreted as absolute evidence for the presence or absence of malignant disease. Test Performed by: [facility] [address] [place] [address] Professor Of Art: Immanuel Novak M.D. Ph.D.; CLIA# [id number] Blood 09/18/2021 1:21 PM CDT 09/18/2021 4:33 PM CDT Eren Cr MD LAB BLOOD ORDERABLES Final Re sult Performing Organization Address City/State/ZIP Co nc Phone Number [facility] [place] [address] documented in this encounter Visit Diagnoses Diagnosis Neuroendocrine carcinoma (HCC)- Primary Other malignant neoplasm of unspecified site Malignant neoplasm metastatic to liver (HCC) Neuro-endocrine carcinoma (HCC) Other malignant neoplasm of unspecified site Metastasis to liver (HCC) Secondary malignant neoplasm of liver documented in this encounter Orders Lab Orders Without Results Count Last Ordered D ate First Ordered Date ONCBCN STUDY LAB 1 1 09/18/2021 Appointment Requests Count Last Ordered Date Fi rst Ordered Date ONCBCN LAB APPOINTMENT 2 09/18/2021 documented in this encounter Care Teams Handle Maker Relationship Specialty Start Date End Date Julio César Briseno MD PCP - General 10/01/16 Eren Cr MD Referring Physician Medical Oncology 11/25/18 Yohana Bowen MD Radiation Oncologist Radiation Oncology 11/25/18 Sabrina Willard, CECILIA [address] [place] [address] Nurse Practitioner Medical Oncology 08/17/20 11/26/21 documented as of this encounter
--- OUTSIDE RECORDS SUMMARY | 2024-06-25 22:24 | XMS_ITS | Encounter Summary ---
Author Organization [facility] Address [address] [place] [address] Phone Care Team Providers Care State Superintendent Of [employer] Name Role Phone Julio César Briseno MD Primary Care Provider Eren Cr MD Unavailable [phone] Yohana Bowen MD Unavailable Sabrina Willard NP Unavailable [phone] Encounter Details Date Type Department Care Team (Late st Contact Info) Description 08/04/2021 Orders Only [facility] Oncology [address] [facility] 7th [place] [address] [place] [address] Elaine Coy Neuroendocrine carcinoma (CMS/HCC) (HCC) (Primary Dx) Social [...] on file 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
--- OUTSIDE RECORDS SUMMARY | 2024-06-25 22:24 | XMS_ITS | Encounter Summary ---
Author Organization [facility] Address [address] [place] [address] Phone Care Team Providers Care Tire Repairer Name Role Phone Julio César Briseno MD Primary Care Provider [phone] Eren Cr MD Unavailable Yohana Bowen MD Unavailable Sabrina Willard NP Unavailable [phone] Encounter Details Date Type Department Care Team (Late st Contact Info) Description 08/21/2021 Orders Only [facility] Oncology [address] [facility] Advanced Medicine 7th [place] [address] [place] [phone] Eren Cr MD [address] [facility] [address] [place] [address] Social History Tobacco Use Types Packs/Day Years [...] file 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 Gender Identity Not on file Sexual Orientation Straight 02/19/2021 9: 29 AM CDT Occupation Industry Job Start Date Job End Date retired Not on file Not on file Not on file documented as of this encounter Plan of Treatment Not on file documented as of this encounter Visit Diagnoses Not on filedocumented in this encounter Care Teams Tire Repairer Relationship Specialty Start Date End Date Julio César Briseno MD PCP - General 10/01/16 Eren Cr MD Referring Physician Medical Oncology 11/25/18 Yohana Bowen MD Radiation Oncologist Radiation Oncology 11/25/18 Sabrina Willard NP [address] [place] [address] Nurse Practitioner Medical Oncology 08/17/20 11/26/21 documented as of this encounter
--- OUTSIDE RECORDS SUMMARY | 2024-06-25 22:24 | XMS_ITS | Encounter Summary ---
Author Organization [facility] Address [address] [place] [address] Phone Care Team Providers Care Stitch Marker Name Role Phone Julio César Briseno MD Primary Care Provider Eren Cr MD Unavailable [phone] Yohana Bowen MD Unavailable Sabrina Willard NP Unavailable [phone] Encounter Details Date Type Department Care Team (Late st Contact Info) Description 08/18/2021 Orders Only [facility] Oncology [address] [facility] Advanced Medicine 7th [place] [address] [place] [address] Elaine Coy Neuro-endocrine carcinoma (CMS/HCC) [...] on file 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
--- OUTSIDE RECORDS SUMMARY | 2024-06-25 22:24 | XMS_ITS | Encounter Summary ---
Author Organization [facility] Address [address] [place] [address] Phone Care Team Providers Care Market Risk Manager Name Role Phone Julio César Briseno MD Primary Care Provider [phone] Eren Cr MD Unavailable [phone] Yohana Bowen MD Unavailable Sabrina Willard NP Unavailable [phone] Reason for Visit * Episode Based Medications (Routine) - Closed Specialty Diagnoses / Procedures Referred By Contac t Referred To Contact Diagnoses Neuro-endocrine carcinoma (HCC) Procedures study [id number] phase III cabozantinib Eren Cr MD [address] [facility] [address] [place] [address] Phone: tel: fax: [facility] at [facility] and [facility] [address] [facility] [place] Advanced Medicine 7th [place] [address] Phone: tel: Referral ID Status Reason Start Date Expiration Date Visits Re quested Visits Authorized [id number] Closed 06/21/2021 06/26/2024 1 99 Encounter Details Date Type Department Care Team (Late st Contact Info) Description 09/04/2021 11:15 AM RESTAURANT CREW PERSON Office Visit [facility] Oncology [address] [facility] 7th [place] [address] [place] [address] Eren Cr MD [address] [facility] [address] [place] [address] Neuroendocrine carcinoma (CMS/HCC) (HCC) (Primary Dx); Malignant [...] on file Legal Sex Female 2:41 PM RESTAURANT CREW PERSON Gender Identity Not on file Sexual Orientation Straight 02/19/2021 9: 29 AM CDT Occupation Industry Job Start Date Job End Date retired Not on file Not on file Not on file documented as of this encounter Last Filed Vital Signs Vital Sign Reading Time Taken Comments Blood Pressure 112/69 09/04/2021 11:22 AM RESTAURANT CREW PERSON Pulse 87 09/04/2021 11:22 AM RESTAURANT CREW PERSON Temperature 36.4 ??C (97.5 ??F) 09/04/2021 11:[address] Respiratory Rate 18 09/04/2021 11:22 AM RESTAURANT CREW PERSON Oxygen Saturation 95% 09/04/2021 11:22 AM RESTAURANT CREW PERSON Inhaled Oxygen Concentration - - Weight 76.5 kg (168 lb 9.6 oz) 09/04/2021 11:22 AM RESTAURANT CREW PERSON Height - - Body Mass Index 30.75 07/17/2021 2:15 PM RESTAURANT CREW PERSON documented in this encounter Progress Notes * Joelle Eugene, CECILIA - 09/04/2021 11:15 AM CST MEDICAL ONCOLOGY OUTPATIENT ROV NOTE La Chung : 1950 DATE OF VISIT: 09/04/21 Oncology History Overview Note TREATMENT HISTORY: 1. [...] time, she also underwent right colectomy in [facility] [place] by Dr. Greyson Reeves. [...] started treatment on study on 07/21/2021. She reports improvement in her vertigo since seeing a chiropractor on 09/01. She has a new cough that started on Saturday particularly at night. Alongside shortness of breath on exertion. No fevers orsore throat. No known covid exposure. She is vaccinated. She has poor energy and appetite. She has to force herself to eat. She also has hoarseness to her voice which is stable. She is wondering if her mediations can be dose reduced. Denies new lumps or bumps, fevers, chills, night sweats, chest pain, diarrhea, constipation. Deniesvision changes, headaches, numbness, tinglining, or pain. Denies rashes, bruising or bleeding. ALLERGIES: Allergies Allergen Reactions ??? Morphine Blisters ??? Ezetimibe-Simvastatin Muscle pain and Unknown Muscle weakness ??? Ramipril Cough ROS: A complete review of systems was performed and was negative other than those mentioned in the aboveinterval history. All other systems negative. OBJECTIVE: Most Recent Vitals: BP: 112/69 Temp: 36.4 ??C (97.5 ??F) Temp src: Transdermal Pulse: 87 Resp: 18 SpO2: 95 % Weight: 76.5 kg (168 lb 9.6 oz) PHYSICAL EXAM: ECOG PS: 1 GEN: [...] No rashes over exposed skin NEURO: A&Ox4, core worker grossly intact by conversation, moving all extremities [...] aredisplayed. Labs - Hematology Latest Ref Range 08/03/21 08/07/21 08/21/21 09/04/21 WBC 3.8 - 9.8 K/cumm 4.5 4.1 3.1 (A) 4.0 Total Hb, POC 12.1 - 15.1 g/dL 14.4 14.2 15.5 (A) 15.5 (A) Hct 36.1 - 44.3 % 40.8 40.4 43.2 44.2 Plt 140 - 440 K/cumm 127 (A) 103 (A) 99 (A) 101 (A) Neutrophil abs 1.8 - 6.6 K/cumm 3.3 3.1 2.3 2.5 Lymphocytes, abs 1.2 - 3.3 K/cumm 0.6 (A) 0.6 (A) 0.6 (A) 1.0 (A) (A) Abnormal value Comments are available for some flowsheets but are not being displayed. Chem/LFT Lab History Some values may be hidden. Unless noted otherwise, only the newest values recorded on each date aredisplayed. Labs-Chem/LFT Latest Ref Range 08/03/21 08/07/21 08/21/21 09/04/21 Sodium 135 - 145 mmol/L 139 139 138 135 Creatinine 0.60 - 1.10 mg/dL 1.12 (A) 0.96 1.19 (A) 1.55 (A) Bilirubin, total 0.1 - 1.2 mg/dL 0.5 0.6 0.8 1.1 AST 10 - 45 Units/L 75 (A) 42 45 60 (A) ALT 7 - 45 Units/L 50 (A) 33 33 45 CrCl- Actual Body Weight (Cockcroft-Gault) 56.2 66.9 52.4 39.6 (A) Abnormal value Comments are available for some flowsheets but are not being displayed. Tumor Marker History Some values may be hidden. Unless noted otherwise, only the newest values recorded on each date aredisplayed. Tumor Markers Latest Ref Range 06/19/21 07/04/21 07/17/21 08/21/21 Chromogranin A <93 ng/mL 1630 (A) 1364 (A) 1727 (A) 877 (A) (A) Abnormal value Comments are available [...] liver metastases. He continues on octreotide and the CABINET trial. Her adverse events do not reveal need to hold/dose reduce the cabozantinib. After further discussion with the patient and Dr. Cr she will continue on treatment. We will obtain MRI which was unable to be done prior, related to no access- to further assess the trouble focusing. No neurologicdeficits on exam. She will proceed on CABINET with cabozantinib/placebo. Will obtain COVID test today with new cough/SOB. Creatinine is slightly elevated today, however with concern for COVID we will not give IV fluids today. We encourage PO intake and will consider IV fluids if needed after covid results. 2. Diarrhea- stable 3. Fluids and possible magesium repletion 4. Dizziness- Resolved since saturday she already has an MRI scheduled for tomorrow. As this is recurrent. Joelle Eugene NP Medical Oncology Cosigned by Eren Cr Jr., MD at 09/06/2021 9:20 AM RESTAURANT CREW PERSON AURANT CREW PERSON AURANT CREW PERSON AURANT CREW PERSON documented in this encounter Plan of Treatment [...] REQUEST 1 022 documented in this encounter Additional Health Concerns Infection Onset Date Last Indicated Resolved Time Exposure, COVID-19 Comment:Added automatically based on COVID19 lab answers indicating exposure risk 09/04/2021 09/04/2021 09/14/2021 3:[address] COVID: Suspected 09/04/2021 09/04/2021 09/04/2021 4:06 PM RESTAURANT CREW PERSON documented as of this encounter Care Teams Market Risk Manager Relationship Specialty Start Date End Date Julio César Briseno MD PCP - General 10/01/16 Eren Cr MD Referring Physician Medical Oncology 11/25/18 Yohana Bowen MD Radiation Oncologist Radiation Oncology 11/25/18 Sabrina Willard NP [address] [place] [address] Nurse Practitioner Medical Oncology 08/17/20 11/26/21 documented as of this encounter
--- OUTSIDE RECORDS SUMMARY | 2024-06-25 22:24 | XMS_ITS | Encounter Summary ---
Author Organization [facility] Address [address] [place] [address] Phone Care Team Providers Care Chinese Language Professor Name Role Phone Julio César Briseno MD Primary Care Provider [phone] Eren Cr MD Unavailable [phone] Yohana Bowen MD Unavailable Sabrina Willard NP Unavailable Encounter Details Date Type Department Care Team (Late st Contact Info) Description 08/10/2021 Orders Only [facility] Oncology [address] [facility] Advanced Medicine 7th [place] [address] [place] [address] Eren Cr MD [address] [facility] [address] [place] [address] Neuro-endocrine carcinoma (CMS/HCC) (HCC) (Primary Dx) Social [...] on file Legal Sex Female 2:41 PM COKE HANDLING SUPERVISOR Gender Identity Not on file Sexual Orientation Straight 02/19/2021 9: 29 AM CDT Occupation Industry Job Start Date Job End Date retired Not on file Not on file Not on file documented as of this encounter Plan of Treatment Not on file documented as of this encounter Results * Phosphorus (09/04/2021 11:00 AM COKE HANDLING SUPERVISOR) Pathologist [facility] Phosphorus, pl 2.7 2.3 - 4.5 mg/dL [facility] Comment:Testing performed by : [facility], [address] [place] [phone] Blood 09/04/2021 11:0 0 AM COKE HANDLING SUPERVISOR 09/04/2021 11:01 AM COKE HANDLING SUPERVISOR Eren Cr MD LAB BLOOD ORDERABLES Final Re sult Performing Organization Address City/[facility] [[email or web address]] Co de Phone Number [facility] Department [place] [address] * Magnesium (09/04/2021 11:00 AM COKE HANDLING SUPERVISOR) [facility] Magnesium 1.5 1.4 - 2.5 mg/dL [facility] Comment:Testing performed by : [facility], [address] [place] [phone] Blood 09/04/2021 11:0 0 AM COKE HANDLING SUPERVISOR 09/04/2021 11:01 AM COKE HANDLING SUPERVISOR Eren Cr MD LAB BLOOD ORDERABLES Final Re sult Performing Organization Address [facility] [[email or web address]] Co de Phone Number [facility] Department [place] [address] * (ABNORMAL) Comprehensive metabolic panel (09/04/2021 11:00 AM COKE HANDLING SUPERVISOR) [facility] Sodium 135 135 - 145 mmol/L [facility] Comment:Testing performed by : [facility], [address] [place] [phone] Potassium, pl 4.3 3.3 - 4.9 mmol/L [facility] Comment:Testing performed by : [facility], [address] [place] [phone] Chloride 99 97 - 110 mmol/L [facility] Comment:Testing performed by : [facility], [address] [place] [phone] CO2 25 22 - 32 mmol/L [facility] Comment:Testing performed by : [facility], [address] [place] [phone] Anion gap 11 2 - 15 mmol/L [facility] Comment:Testing performed by : [facility], [address] [place] [phone] BUN 19 8 - 25 mg/dL [facility] Comment:Testing performed by : [facility], [address] [place] [phone] Creatinine 1.55(H) 0.60 - 1.10 mg/dL [facility] Comment:Testing performed by : [facility], [address] [place] [phone] Glucose 121 70 - 199 mg/dL [facility] [...] was last revised 2017. Testing performed by: [facility], [address] [place] [phone] Calcium 10.9(H) 8.5 - 10.3 mg/dL [facility] Comment:Testing performed by : [facility], [address] [place] [phone] Bilirubin, total 1.1 0.1 - 1.2 mg/dL [facility] Comment:Testing performed by : [facility], [address] [place] [phone] Protein, pl 7.2 6.5 - 8.5 g/dL [facility] Comment:Testing performed by : [facility], [address] [place] [phone] Albumin 4.4 3.5 - 5.0 g/dL [facility] Comment:Testing performed by : [facility], [address] [place] [phone] Alk phos 111 40 - 130 Units/L [facility] Comment:Testing performed by : [facility], [address] [place] [phone] ALT 45 7 - 45 Units/L [facility] Comment:Testing performed by : [facility], [address] [place] [phone] AST 60(H) 10 - 45 Units/L [facility] Comment:Testing performed by : [facility], [address] [place] [phone] Blood 09/04/2021 11:0 0 AM COKE HANDLING SUPERVISOR 09/04/2021 11:01 AM COKE HANDLING SUPERVISOR us Eren Cr MD LAB BLOOD ORDERABLES Final Re sult [facility] One [facility] Department [place] [address] * (ABNORMAL) CBC with auto differential (09/04/2021 11:00 AM COKE HANDLING SUPERVISOR) WBC 4.0 3.8 - 9.8 K/cumm [facility] Comment:Testing performed by : [facility], [address] [place] [phone] Hgb 15.5(H) 12.1 - 15.1 g/dL [facility] Comment:Testing performed by : [facility], [address] [place] [phone] Hct 44.2 36.1 - 44.3 % [facility] Comment:Testing performed by : [facility], [address] [place] [phone] Plt 101(L) 140 - 440 K/cumm [facility] Comment:Testing performed by : [facility], [address] [place] [phone] MPV 8.4 6.8 - 10.4 fL [facility] Comment:Testing performed by : [facility], [address] [place], [place] [phone] RBC 5.06(H) 3.90 - 5.00 M/cumm [facility] Comment:Testing performed by : [facility], [address] [place], [place] [phone] MCV 87.5 80.0 - 97.6 fL [facility] Comment:Testing performed by : [facility], [address] [place], [place] [phone] MCH 30.6 26.7 - 33.7 pg [facility] Comment:Testing performed by : [address] [phone] MCHC 35.0 32.7 - 35.5 g/dL [facility] Comment:Testing performed by : [facility], [address] [place] [phone] RDW CV 14.6 11.8 - 14.6 % [facility] Comment:Testing performed by : [facility], [address] [place] [phone] NRBC abs 0.00 0.00 - 0.01 K/cumm [facility] Comment:Testing performed by : [address] [phone] Blood 09/04/2021 11:0 0 AM COKE HANDLING SUPERVISOR 09/04/2021 11:01 AM COKE HANDLING SUPERVISOR us Eren Cr MD LAB BLOOD ORDERABLES Final Re sult [facility] One [facility] Department [place] [address] documented in this encounter Visit Diagnoses Diagnosis Neuro-endocrine carcinoma (HCC)- Primary Other malignant neoplasm of unspecified site documented in this encounter Orders Appointment Requests Count Last Ordered Date Fi rst Ordered Date ONCBCN CLINIC APPOINTMENT REQUEST 1 022 ONCBCN LAB APPOINTMENT 1 09/04/2021 documented in this encounter Care Teams Chinese Language Professor Relationship Specialty Start Date End Date Julio César Briseno MD PCP - General 10/01/16 Eren Cr MD Referring Physician Medical Oncology 11/25/18 Yohana Bowen MD Radiation Oncologist Radiation Oncology 11/25/18 Sabrina Willard NP [address] [place] [address] Nurse Practitioner Medical Oncology 08/17/20 11/26/21 documented as of this encounter
--- OUTSIDE RECORDS SUMMARY | 2024-06-25 22:24 | XMS_ITS | Encounter Summary ---
Author Organization [facility] Address [address] [place] [address] Phone Care Team Providers Care Director Of Physician Practices Name Role Phone Julio César Briseno MD Primary Care Provider [phone] Eren Cr MD Unavailable [phone] Yohana Bowen MD Unavailable Sabrina Willard NP Unavailable [phone] Encounter Details Date Type Department Care Team (Late st Contact Info) Description 08/21/2021 Orders Only [facility] Oncology [address] [facility] Advanced Medicine 7th [place] [address] [place] [address] Hien Jaimes, [facility] Social History Tobacco Use Types [...] on file Legal Sex Female 2:41 PM THERAPIST PHYSICAL Gender Identity Not on file Sexual Orientation Straight 02/19/2021 9: 29 AM CDT Occupation Industry Job Start Date Job End Date retired Not on file Not on file Not on file documented as of this encounter Plan of Treatment Not on file documented as of this encounter Visit Diagnoses Not on filedocumented in this encounter Care Teams Director Of Physician Practices Relationship Specialty Start Date End Date Julio César Briseno MD PCP - General 10/01/16 Eren Cr MD Referring Physician Medical Oncology 11/25/18 Yohana Bowen MD Radiation Oncologist Radiation Oncology 11/25/18 Sabrina Willard NP [address] [place] [address] Nurse Practitioner Medical Oncology 08/17/20 11/26/21 documented as of this encounter
--- OUTSIDE RECORDS SUMMARY | 2024-06-25 22:24 | XMS_ITS | Encounter Summary ---
Author Organization [facility] Address [address] [place] [address] Phone Care Team Providers Care Stamp Redemption Clerk Name Role Phone Julio César Briseno MD Primary Care Provider [phone] Eren Cr MD Unavailable [phone] Yohana Bowen MD Unavailable Sabrina Willard NP Unavailable [phone] 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) Procedures NE OCTREOTIDE INJECTION, DEPOT Octreotide 28 Day Cycles - Carcinoid Eren Cr MD [address] [facility] [address] [place] [address] Phone: tel: fax: [facility] [address] [address] Phone: tel: fax: Referral ID Status Reason Start Date Expiration Date V isits Requested Visits Authorized [id number] Authorized 11/28/2017 02/05/2025 1 150 Encounter Details Date Type Department Care Team (Late st Contact Info) Description 08/21/2021 11:00 AM THERAPEUTIC RADIOLOGIST Infusion [facility] Oncology [address] [facility] 7th [place] [address] Neuroendocrine carcinoma (CMS/HCC) (HCC); Malignant neoplasm metastatic [...] on file Legal Sex Female 2:41 PM THERAPEUTIC RADIOLOGIST Gender Identity Not on file Sexual Orientation Straight 02/19/2021 9: 29 AM CDT Occupation Industry Job Start Date Job End Date retired Not on file Not on file Not on file documented as of this encounter Nursing Notes * Xochitl Jimenez RN - 08/21/2021 11:00 AM CST Oncology Nursing Note [facility] ON[facility] La Chung is a 70 y.o. female who presents for the following injection: xgeva and octreotide; IVFs with Mg. Nursing Assessment Additional Notes: BP: 134/78 Temp: 36.3 ??C (97.3 ??F) Temp src: Transdermal Pulse: 79 Resp: 18 SpO2: 96 % Weight: 77.7 kg (171 lb 6.4 oz) La Chung tolerated injection well Additional Notes: IVFs with magnesium given over 2 hours per orders Discharge Plan Discharge instructions given to patient. Discharge Mode: Ambulatory Accompanied by: Family Discharged To: Home APEUTIC RADIOLOGIST documented in this encounter Plan of Treatment [...] 30 mg 30 mg, intramuscular, Once, On 08/21/21 at 1500, For 1 dose, Refrigerate. For IM intragluteal administration only- alternate gluteal sites. 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),Neuroendocrine carcinoma (HCC) Given 08/21/2021 4:54 PM THERAPEUTIC RADIOLOGIST 30 mg Right Dorsogluteal/Butt ock documented in this encounter Orders Appointment Requests Count Last Ordered Date Fi rst Ordered Date ONCBCN INJECTION APPOINTMENT REQUEST 1 08/08 documented in this encounter Care Teams Stamp Redemption Clerk Relationship Specialty Start Date End Date Julio César Briseno MD PCP - General 10/01/16 Eren Cr MD Referring Physician Medical Oncology 11/25/18 Yohana Bowen MD Radiation Oncologist Radiation Oncology 11/25/18 Sabrina Willard NP [address] [place] [address] Nurse Practitioner Medical Oncology 08/17/20 11/26/21 documented as of this encounter
--- OUTSIDE RECORDS SUMMARY | 2024-06-25 22:24 | XMS_ITS | Encounter Summary ---
Author Organization [facility] Address [address] [place] [address] Phone Care Team Providers Care Convenience Store Clerk Name Role Phone Julio César Briseno MD Primary Care Provider Eren Cr MD Unavailable [phone] Yohana Bowen MD Unavailable Sabrina Willard NP Unavailable Encounter Details Date Type Department Care Team (Late st Contact Info) Description 08/10/2021 Orders Only [facility] Oncology [address] [facility] Advanced Medicine 7th [place] [address] [place] [address] Eren Cr MD [address] [facility] [address] [place] [address] Neuro-endocrine carcinoma (CMS/HCC) (HCC) (Primary Dx) Social [...] on file Legal Sex Female 2:41 PM DELIVERY CONSULTANT Gender Identity Not on file Sexual [...] site documented in this encounter Care Teams Convenience Store Clerk Relationship Specialty Start Date End Date Julio César Briseno MD PCP - General 10/01/16 Eren Cr MD Referring Physician Medical Oncology 11/25/18 Yohana Bowen MD Radiation Oncologist Radiation Oncology 11/25/18 Sabrina Willard NP [address] [place] [address] Nurse Practitioner Medical Oncology 08/17/20 11/26/21 documented as of this encounter
--- OUTSIDE RECORDS SUMMARY | 2024-06-25 22:24 | XMS_ITS | Encounter Summary ---
Author Organization [facility] Address [address] [place] [address] Care Team Providers Care Electrical Engineer Name Role Phone Julio César Briseno MD Primary Care Provider [phone] Eren Cr MD Unavailable Yohana Bowen MD Unavailable Sabrina Willard NP Unavailable [phone] Encounter Details Date Type Department Care Team (Late st Contact Info) Description 09/12/2021 Telephone [facility] Radiology [address] [place] [address] Sabrina Ruiz, RN Social History Tobacco Use Types Packs/Day [...] file Legal Sex Female 2:41 PM AIRPLANE NAVIGATOR Gender Identity Not on file Sexual Orientation Straight 02/19/2021 9: 29 AM CDT Occupation Industry Job Start Date Job End Date retired Not on file Not on file Not on file documented as of this encounter Miscellaneous Notes * Telephone Encounter - Sabrina Ruiz RN - 09/12/2021 5:08 PM AIRPLANE NAVIGATOR Preprocedure Phone Call Procedure Time Verified: Yes Arrival Time Verified: Yes Procedure Location Verified: Yes Medical History Reviewed: Yes NPO Status Reinforced: Yes Ride and Caregiver Arranged: Yes Ride Caregiver Provider: Patient Knows to Bring Current Medications: Yes Patient Knows to Bring CPAP: No Is Patient on Home Ventilator?: No Is Patient on Blood Thinners?: No LANE NAVIGATOR documented in this encounter Plan of Treatment Not on file documented as of this encounter Visit Diagnoses Not on filedocumented in this encounter Additional Health Concerns Infection Onset Date Last Indicated Resolved Time Exposure, COVID-19 Comment:Added automatically based on COVID19 lab answers indicating exposure risk 09/04/2021 09/04/2021 09/14/2021 3:[address] documented as of this encounter Care Teams Electrical Engineer Relationship Specialty Start Date End Date Julio César Briseno MD PCP - General 10/01/16 Eren Cr MD Referring Physician Medical Oncology 11/25/18 Yohana Bowen MD Radiation Oncologist Radiation Oncology 11/25/18 Sabrina Willard NP [address] [place] [address] Nurse Practitioner Medical Oncology 08/17/20 11/26/21 documented as of this encounter
--- OUTSIDE RECORDS SUMMARY | 2024-06-25 22:24 | XMS_ITS | Encounter Summary ---
Author Organization [facility] Address [address] [place] [address] Phone Care Team Providers Care Cable Splicer Apprentice Name Role Phone Julio César Briseno MD Primary Care Provider [phone] Eren Cr MD Unavailable Yohana Bowen MD Unavailable Sabrina Willard NP Unavailable [phone] 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) Procedures [place] OCTREOTIDE INJECTION, DEPOT Octreotide 28 Day Cycles - Carcinoid Eren Cr MD [address] [facility] [address] [place] [address] Phone: tel: fax: [facility] [address] [address] Phone: tel: fax: Referral ID Status Reason Start Date Expiration Date V isits Requested Visits Authorized [id number] Authorized 11/28/2017 02/05/2025 1 150 Encounter Details Date Type Department Care Team (Late st Contact Info) Description 09/18/2021 1:45 PM CDT Office Visit [facility] Oncology [address] [facility] 7th [place] [address] [place] [id number] Eren Cr MD [address] [facility] [address] [place] [address] Neuroendocrine carcinoma (CMS/HCC) (HCC) (Primary Dx); Malignant [...] on file Legal Sex Female 2:41 PM COMMUNICATIONS INTERN Gender Identity Not on file Sexual Orientation Straight 02/19/2021 9: 29 AM CDT Occupation Industry Job Start Date Job End Date retired Not on file Not on file Not on file documented as of this encounter Last Filed Vital Signs Vital Sign Reading Time Taken Comments Blood Pressure 133/70 09/18/2021 1:35 PM CDT Pulse 82 09/18/2021 1:35 PM CDT Temperature 36.2 ??C (97.2 ??F) 09/18/2021 1:35 PM CD T Respiratory Rate 18 09/18/2021 1:35 PM CDT Oxygen Saturation 95% 09/18/2021 1:35 PM CDT Inhaled Oxygen Concentration - - Weight 75.6 kg (166 lb 9.6 oz) 09/18/2021 1:35 P M CDT Height - - Body Mass Index 30.39 07/17/2021 2:15 PM COMMUNICATIONS INTERN documented in this encounter Progress Notes * Eren Cr Jr., MD - 09/18/2021 1:45 PM CDT MEDICAL ONCOLOGY OUTPATIENT ROV NOTE La Chung : 1950 DATE OF VISIT: 09/18/21 Oncology History Overview Note TREATMENT HISTORY: 1. [...] time, she also underwent right colectomy in [facility] by Dr. Greyson Reeves. Biopsy [...] started treatment on study on 07/21/2021. She has tiredness and weakening of her voice. Fatigue is grade 1. She states that she is taking naps but today able to wlak without stopping. Denies new lumps or bumps, fevers, chills, [...] systems negative. OBJECTIVE: Most Recent Vitals: BP: 133/70 Temp: 36.2 ??C (97.2 ??F) Pulse: 82 Resp: 18 SpO2: 95 % Weight: 75.6 kg (166 lb 9.6 oz) PHYSICAL EXAM: ECOG PS: [...] No rashes over exposed skin NEURO: A&Ox4, pedigree researcher grossly intact by conversation, moving all extremities [...] aredisplayed. Labs - Hematology Latest Ref Range 08/07/21 08/21/21 09/04/21 09/18/21 WBC 3.8 - 9.8 K/cumm 4.1 3.1 (A) 4.0 3.0 (A) Total Hb, POC 12.1 - 15.1 g/dL 14.2 15.5 (A) 15.5 (A) 13.1 Hct 36.1 - 44.3 % 40.4 43.2 44.2 36.9 Plt 140 - 440 K/cumm 103 (A) 99 (A) 101 (A) 71 (A) Neutrophil abs 1.8 - 6.6 K/cumm 3.1 2.3 2.5 1.8 Lymphocytes, abs 1.2 - 3.3 K/cumm 0.6 (A) 0.6 (A) 1.0 (A) 0.7 (A) (A) Abnormal value Comments are available for some flowsheets but are not being displayed. Chem/LFT Lab History Some values may be hidden. Unless noted otherwise, only the newest values recorded on each date aredisplayed. Labs-Chem/LFT Latest Ref Range 08/07/21 08/21/21 09/04/21 09/18/21 Sodium 135 - 145 mmol/L 139 138 135 137 Creatinine 0.60 - 1.10 mg/dL 0.96 1.19 (A) 1.55 (A) 1.55 (A) Bilirubin, total 0.1 - 1.2 mg/dL 0.6 0.8 1.1 0.9 AST 10 - 45 Units/L 42 45 60 (A) 54 (A) ALT 7 - 45 Units/L 33 33 45 39 CrCl- Actual Body Weight (Cockcroft-Gault) 66.9 52.4 39.6 39.1 (A) Abnormal value Comments are available for [...] flowsheets but are not being displayed. IMAGING: IR Port Placement Chest > 5 Years Narrative: EXAMINATION: PORT PLACEMENT USING ULTRASOUND GUIDANCE (STD TECHNIQUE) HISTORY: 70-year-old female with neuroendocrine carcinoma referred for port placement for treatment. Provider PRESENCE: Soniya Flores the THANH was present from the beginning to the end of the procedure. SEDATION: Conscious sedation was used for the procedure. TECHNIQUE: The risks, benefits and alternatives were discussed and informed consent was obtained. Prior to beginning the procedure, [place] Protocol was used to confirm the patient's identity and planned procedure. Fluoroscopy time has been recorded in the electronic medical record. Prior to the procedure, the central veins were evaluated by ultrasound, an image recorded and placed in the patient's chart. Maximum sterile barriers including cap, mask, hand hygiene, sterile gloves, sterile gown, large sterile drape and 2% chlorhexidine for cutaneous antisepsis were used. The skin over the right internal jugular vein was sterilely prepped, draped and infiltrated with 1% lidocaine. The vein was accessed with a 21 gauge needle using realtime ultrasound guidance. A guidewire and catheter were then passed centrally using fluoroscopic guidance. The intravascular length from the access site to the right atrium was then measured. After infiltrating the skin in the subclavicular region with 1% lidocaine, a short transverse incision was made and the pocket for the power injectable port reservoir was formed by blunt dissection. The catheter was tunneled to the IJ access site, cut to the appropriate length and inserted through a peel-away sheath. The catheter was flushed with 100U/ml heparin and the access needle removed. The deep tissues were approximated using 2-0 Vicryl and the incision closed using skin glue. The incision in the lower neck was closed using 4-0 Monocryl and skin glue. ESTIMATED BLOOD LOSS: Minimal. CONDITION: Stable DISCHARGED TO: Recovery then home. FINDINGS: Ultrasound image shows a patent vein in the lower neck. The final fluoroscopic image demonstrates the catheter with its tip at the cavoatrial junction. No complications are seen. Impression: Successful chest wall port placement. PLAN: The catheter is ready for immediate use. Please note that a power injectable port was placed. When treatment is completed, removal can be scheduled by calling [facility] - [phone] [facility] - [phone] Electronically signed by: Soniya Flores ASSESSMENT AND PLAN: MsClark Chung is a 70 y.o. Non- female with metastatic neuroendocrine tumor who presents for routine oncologic care. 1. Metastatic neuroendocrine tumor with liver metastases. He continues on octreotide and the CABINET trial. She appear to be tolerating her treatment well. She does have low platelets and tiredness. She will proceed on CABINET with cabozantinib/placebo. 2. Diarrhea- stable 3. Hypomagnesemia with serum magensium of 1.2. Fluids and possible magesium repletion Eren Cr MD Medical Oncology documented in this encounter Plan of Treatment Not on file documented as of this encounter Results * (ABNORMAL) TSH (10/16/2021 9:59 AM CDT) Thyroid Stimulating Hormone 5.45(H) 0.30 - 4.20 mcIUnit/mL [facility] Blood 10/16/2021 9:59 AM CDT 10/16/2021 10:32 AM CDT Eren Cr MD LAB BLOOD ORDERABLES Final Re sult Performing Organization Address [facility] de Phone Number [facility] Department [place] [address] * (ABNORMAL) Magnesium (10/16/2021 9:59 AM CDT) Magnesium 1.0(L) 1.4 - 2.5 mg/dL [facility] Comment:Testing performed by : [facility], [address] [place] [phone] Blood 10/16/2021 9:59 AM CDT 10/16/2021 10:03 AM CDT Eren Cr MD LAB BLOOD ORDERABLES Final Re sult [facility] Department [place] [address] documented in this encounter Visit Diagnoses Diagnosis Neuroendocrine carcinoma (HCC)- Primary Other malignant neoplasm of unspecified site Malignant neoplasm metastatic to liver (HCC) Neuro-endocrine carcinoma (HCC) Other malignant neoplasm of unspecified site documented in this encounter Orders Appointment Requests Count Last Ordered Date Fi rst Ordered Date ONCBCN CLINIC APPOINTMENT REQUEST 2 022 documented in this encounter Care Teams Cable Splicer Apprentice Relationship Specialty Start Date End Date Julio César Briseno MD PCP - General 10/01/16 Eren Cr MD Referring Physician Medical Oncology 11/25/18 Yohana Bowen MD Radiation Oncologist Radiation Oncology 11/25/18 Sabrina Willard NP [address] [place] [address] Nurse Practitioner Medical Oncology 08/17/20 11/26/21 documented as of this encounter
--- OUTSIDE RECORDS SUMMARY | 2024-06-25 22:24 | XMS_ITS | Encounter Summary ---
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) Procedures [place] DENOSUMAB INJECTION DENOSUMAB (XGEVA) Eren Cr MD [address] [place] [address] Phone: tel: fax: [facility] [address] [facility] 7th [place] [address] Phone: tel: Referral ID Status Reason Start Date Expiration Date V isits Requested Visits Authorized [id number] Authorized 03/02/2019 10/06/2024 1 60 Encounter Details Date Type Department Care Team (Latest Contact Info) Description 09/05/2021 1:13 PM NATIONAL INVESTIGATIVE PRODUCER - 09/05/2021 3:56 PM NATIONAL INVESTIGATIVE PRODUCER Hospital Encounter [facility] Advanced Medicine ([facility]) [address] [place] [address] Eren Cr MD [address] [facility] [address] [place] [address] Bone metastasis (CMS/HCC) (HCC) (Primary Dx); Neuro-endocrine [...] on file Legal Sex Female 2:41 PM NATIONAL INVESTIGATIVE PRODUCER Gender Identity Not on file Sexual Orientation Straight 02/19/2021 9: 29 AM CDT Occupation Industry Job Start Date Job End Date retired Not on file Not on file Not on file documented as of this encounter Last Filed Vital Signs Vital Sign Reading Time Taken Comments Blood Pressure 151/70 09/05/2021 1:19 PM NATIONAL INVESTIGATIVE PRODUCER Pulse 81 09/05/2021 1:19 PM NATIONAL INVESTIGATIVE PRODUCER Temperature 36.3 ??C (97.3 ??F) 09/05/2021 1:19 PM CS T Respiratory Rate 18 09/05/2021 1:19 PM NATIONAL INVESTIGATIVE PRODUCER Oxygen Saturation 98% 09/05/2021 1:19 PM NATIONAL INVESTIGATIVE PRODUCER Inhaled Oxygen Concentration - - Weight - - Height - - Body Mass Index - - documented in this encounter Discharge Diagnoses Diagnosis Encounter for antineoplastic immunotherapy - ENCOUNTER FOR ANTINEOPLASTIC IMMUNOTHERAPY Secondary malignant neoplasm of bone (CMS/HCC) (HCC) - SECONDARY MALIGNANT NEOPLASM OF BONE Other malignant neuroendocrine tumors (HCC) - OTHER MALIGNANT NEUROENDOCRINE TUMORS documented in this encounter Discharge Instructions * Patient Instructions* Callie Robles RN - 09/05/2021 2:51 PM NATIONAL INVESTIGATIVE PRODUCER .After 4:30 PM during the week, on weekends and holidays, call [phone] and ask to have the [facility] Tender Physician paged for you. Saturday through Saturday, 8 AM to 4:30 PM, call [phone] [facility] Oncology Physician at [facility] and ask for a member [...] any non-prescription medicine without your doctor's approval ONAL INVESTIGATIVE PRODUCER documented in this encounter Medications at Time [...] tablet (20 mg total) by mouth nightly albuterol HFA (PROVENTIL HFA,VENTOLIN HFA,PROAIR HFA) 90 mcg/actuation inhaler INHALE 1 PUFF BY MOUTH EVERY 4 HOURS 03/24/2021 2 ascorbic acid, vitamin C, 500 mg capsuleIndications :supplement Take 1 tablet by mouth washing machine loader before breakfast 07/04/2016 4 cholecalciferol (VITAMIN D-3) 2,000 unit capsule Take 1 capsule (2,000 Units total) by mouth daily 30 capsule 2 04/25/2019 3 cholestyramine (QUESTRAN) 4 gram packet Take 1 packet by mouth 3 (three) times a day with meals 270 packet 3 09/04/2019 2 clotrimazole-betam ethasone (LOTRISONE) cream Apply 1 Application topically daily as needed (rash) 4 coenzyme [id number] E 100-5 mg-unit capsuleIndications :supplement Take 1 tablet by mouth washing machine loader before breakfast 4 denosumab (XGEVA) 120 mg/1.7 [...] and 1 hour after each dose).?? Avoid [address]'s Wort, grapefruit products and Rosalia oranges while on treatment. placed on hold [...] Nursing Notes * Callie Robles RN - 09/05/2021 3:56 PM CST Pt presents to [facility] for 1 liter NS infusion. Tolerated well. Difficult IV stick (x4 today and x7 before). MS Sola notified and states they will get pt set up for port placement. Pt agreeable with plan. Pt discharged in stable, ambulatory condition with daughter. ONAL INVESTIGATIVE PRODUCER documented in this encounter Plan of Treatment [...] mL/hr, Administer over 2 Hours, Once, On Sat09/05/21 at 1355, For 1 doseIndications:Bone metastasis,Neuro-endocrine carcinoma (HCC) New Bag 09/05/2021 1:45 PM NATIONAL INVESTIGATIVE PRODUCER 1,000 mL 500 mL/hr documented in this encounter Active and Recently Administered Medications Times are shown in NATIONAL INVESTIGATIVE PRODUCER. Scheduled Medication Order 09/03/2021 09/04/2021 09/05/2021 sodium chloride 0.9% bolus 1,000 mL (COMPLETED) 1,000 mL, intravenous, at 500 mL/hr, Administer over 2 Hours, Once, On Sat09/05/21 at 1355, For 1 dose 1345 (New Bag - Prov ider: Callie Robles RN)1546 (Stopped - Provider: Clalie Robles RN) documented in this encounter Orders Medications Ordered That Brett ht Not Have Been Administered Count Last Ordered Date First Ordered Date sodium chloride 0.9% bolus 1,000 mL 1 09/05 documented in this encounter Additional Health Concerns Infection Onset Date Last Indicated Resolved Time Exposure, COVID-19 Comment:Added automatically based on COVID19 lab answers indicating exposure risk 09/04/2021 09/04/2021 09/14/2021 3:[address] documented as of this encounter Care Teams Realtime Court Reporter Relationship Specialty Start Date End Date Julio César Briseno MD PCP - General 10/01/16 Eren Cr MD Referring Physician Medical Oncology 11/25/18 Yohana Bowen MD Radiation Oncologist Radiation Oncology 11/25/18 Sabrina Willard NP [address] [place] [address] Nurse Practitioner Medical Oncology 08/17/20 11/26/21 documented as of this encounter
--- OUTSIDE RECORDS SUMMARY | 2024-06-25 22:24 | XMS_ITS | Encounter Summary ---
Author Organization [facility] Address [address] [place] [address] Phone Care Team Providers Care Tin Pourer Name Role Phone Julio César Briseno MD Primary Care Provider [phone] Eren Cr MD Unavailable Yohana Bowen MD Unavailable Sabrina Willard NP Unavailable Encounter Details Date Type Department Care Team (Late st Contact Info) Description 08/21/2021 Orders Only [facility] Oncology [address] [facility] 7th [place] [address] [place] [phone] Eren Cr MD [address] [facility] [address] [place] [address] Social History Tobacco Use Types Packs/Day Years [...] on file Legal Sex Female 2:41 PM BANQUET LINE COOK Gender Identity Not on file Sexual Orientation Straight 02/19/2021 9: 29 AM CDT Occupation Industry Job Start Date Job End Date retired Not on file Not on file Not on file documented as of this encounter Plan of Treatment Not on file documented as of this encounter Visit Diagnoses Not on filedocumented in this encounter Care Teams Tin Pourer Relationship Specialty Start Date End Date Julio César Briseno MD PCP - General 10/01/16 Eren Cr MD Referring Physician Medical Oncology 11/25/18 Yohana Bowen MD Radiation Oncologist Radiation Oncology 11/25/18 Sabrina Willard NP [address] [place] [address] Nurse Practitioner Medical Oncology 08/17/20 11/26/21 documented as of this encounter
--- OUTSIDE RECORDS SUMMARY | 2024-06-25 22:24 | XMS_ITS | Encounter Summary ---
Author Organization [facility] Address [address] [place] [address] Phone Care Team Providers Care Piercing Machine Operator Name Role Phone Julio César Briseno MD Primary Care Provider Eren Cr MD Unavailable [phone] Yohana Bowen MD Unavailable Sabrina Willard NP Unavailable [phone] Encounter Details Date Type Department Care Team (Late st Contact Info) Description 08/17/2021 Telephone [facility] Oncology [address] [facility] Medicine 7th [place] [address] [place] [address] Eren Cr MD [address] [facility] [address] [place] [address] Social History Tobacco Use Types Packs/Day Years [...] file Legal Sex Female 2:41 PM WOOL HAT FINISHER Gender Identity Not on file Sexual Orientation Straight 02/19/2021 9: 29 AM CDT Occupation Industry Job Start Date Job End Date retired Not on file Not on file Not on file documented as of this encounter Miscellaneous Notes * Telephone Encounter - Sola Heredia - 08/17/2021 5:18 PM CST Spoke with patient again following her afternoon nap. She reports she continues to have the dizziness and/or vertigo. She did try to get up and move around some but was not able to stay up for too long. She is drinking adequate fluids, 32-40 ounces daily. No further emesis. Patient is very limited in activity due to her symptom,no present for a week despite decrease to previous dose of Benicar. She is certainly frustrated with lack of improvement and limited ability to enjoy anything. Patient reported having some more bleeding than normal around her stoma with pouch changes and I explained that this was likely caused by the fact that her platelets are low and decreased ability forher blood to clot. Patient did not feel she wanted to come in to be seen on Saturday since she would still have to come back on Saturday. I let her know I would speak with Dr. Cr and let her know any recommendations for Saturday or prior to. HAT FINISHER documented in this encounter Plan of Treatment Not on file documented as of this encounter Visit Diagnoses Not on filedocumented in this encounter Care Teams Piercing Machine Operator Relationship Specialty Start Date End Date Julio César Briseno MD PCP - General 10/01/16 Eren Cr MD Referring Physician Medical Oncology 11/25/18 Yohana Bowen MD Radiation Oncologist Radiation Oncology 11/25/18 Sabrina Willard NP [address] [place] [address] Nurse Practitioner Medical Oncology 08/17/20 11/26/21 documented as of this encounter
--- OUTSIDE RECORDS SUMMARY | 2024-06-25 22:24 | XMS_ITS | Encounter Summary ---
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) Procedures [place] DENOSUMAB INJECTION DENOSUMAB (XGEVA) Eren Cr MD [address] [facility] [address] [place] [address] Phone: tel: fax: [facility] [address] [facility] Advanced Medicine 7th [place] [address] Phone: tel: Referral ID Status Reason Start Date Expiration Date V isits Requested Visits Authorized [id number] Authorized 03/02/2019 10/06/2024 1 60 Encounter Details Date Type Department Care Team (Late st Contact Info) Description 08/21/2021 11:30 AM SEARCH ADVERTISING STRATEGIST Infusion [facility] Oncology [address] [facility] 7th [place] [address] Bone metastasis (CMS/HCC) (HCC) (Primary Dx); Neuro-endocrine [...] on file Legal Sex Female 2:41 PM SEARCH ADVERTISING STRATEGIST Gender Identity Not on file Sexual Orientation Straight 02/19/2021 9: 29 AM CDT Occupation Industry Job Start Date Job End Date retired Not on file Not on file Not on file documented as of this encounter Nursing Notes * Xochitl Jimenez RN - 08/21/2021 11:30 AM CST See other encounter for today's treatment notes CH ADVERTISING STRATEGIST documented in this encounter Plan of Treatment [...] 120 mg 120 mg, subcutaneous, Once, On 08/21/21 at 1415, For 1 dose, Calcium level should be greater than 8 mg/dl Administer injection in upper arm, abdomen or upper thigh Refrigerate. Allow to stand 15 to 30 mins prior to useIndications:Bone metastasis,Neuro-endoc rine carcinoma (HCC) Given 08/21/2021 3:47 PM SEARCH ADVERTISING STRATEGIST 120 mg Right Lower Abdomen sodium chloride 0.9% 1,000 mL with magnesium sulfate 2 g infusion 500 mL/hr, intravenous, Continuous, Starting on 08/21/21 at 1415Indications:Bone metastasis,Neuro-endoc rine carcinoma (HCC) New Bag 08/21/2021 2:40 PM SEARCH ADVERTISING STRATEGIST 500 mL/hr 500 mL/hr documented in this encounter Orders Medications Ordered That Brett ht Not Have Been Administered Count Last Ordered Date First Ordered Date octreotide LAR (SandoSTATIN LAR) extended release intramuscular injection 30 mg 1 08/21/2021 Nursing Count Last Ordered Date First Orde red Date ONCN NURSING COMMUNICATION [id number] 1 08/21 ONCN NURSING COMMUNICATION [id number] 1 0 08/21/2021 documented in this encounter Care Teams Inker Relationship Specialty Start Date End Date Julio César Briseno MD PCP - General 10/01/16 Eren Cr MD Referring Physician Medical Oncology 11/25/18 Yohana Bowen MD Radiation Oncologist Radiation Oncology 11/25/18 Sabrina Willard NP [address] [place] [address] Nurse Practitioner Medical Oncology 08/17/20 11/26/21 documented as of this encounter
--- OUTSIDE RECORDS SUMMARY | 2024-06-25 22:24 | XMS_ITS | Encounter Summary ---
Author Organization [facility] Address [address] [place] [address] Phone Care Team Providers Care Instrumental Musician Name Role Phone Julio César Briseno MD Primary Care Provider Eren Cr MD Unavailable [phone] Yohana Bowen MD Unavailable Sabrina Willard NP Unavailable [phone] Reason for Visit * Reason Onset Date Comments nausea/vomiting/dizziness 08/11/2021 Encounter Details Date Type Department Care Team (Late st Contact Info) Description 08/11/2021 Telephone [facility] Oncology [address] [facility] Advanced Medicine 7th [place] [address] [place] [address] Eren Cr MD [address] [facility] [address] [place] [address] nausea/vomiting/dizzin ess Social History Tobacco Use Types Packs/Day Years [...] on file Legal Sex Female 2:41 PM VIDEO TAPE TRANSFERRER Gender Identity Not on file Sexual Orientation Straight 02/19/2021 9: 29 AM CDT Occupation Industry Job Start Date Job End Date retired Not on file Not on file Not on file documented as of this encounter Miscellaneous Notes * Telephone Encounter - Sola Heredia - 08/11/2021 11:48 AM CST Spoke with patient and daughter, patient reporting dizziness, had an episode of bilious emesis thisam when getting up due to dizziness, says room is spinning. She is staying hydrated. Her PCP increased her dose of Benicar 3 days ago from 20/12.5 to 40/25 mg for increased BP.BP is still elevated, 173/88 right arm and 151/66 left arm today. Patient took Benicar this am. Patient instructed to call PCP regarding BP med. Unable to get patient in today for evaluation withcancer care clinic due to lack of appointment availability as well as [facility] infusion center. Therefore patient/daughter instructed may need to be proceed to ER if worsening or no improvement of symptoms. Patient has Zofran on hand and checking with study team if this is allowed. Will contact patient once known. They will contact PCP now as well. O TAPE TRANSFERRER documented in this encounter Plan of Treatment Not on file documented as of this encounter Visit Diagnoses Not on filedocumented in this encounter Care Teams Instrumental Musician Relationship Specialty Start Date End Date Julio César Briseno MD PCP - General 10/01/16 Eren Cr MD Referring Physician Medical Oncology 11/25/18 Yohana Bowen MD Radiation Oncologist Radiation Oncology 11/25/18 Sabrina Willard, CECILIA [address] [place] [address] Nurse Practitioner Medical Oncology 08/17/20 11/26/21 documented as of this encounter
--- OUTSIDE RECORDS SUMMARY | 2024-06-25 22:24 | XMS_ITS | Encounter Summary ---
Author Organization [facility] Address [address] [place] [address] Phone Care Team Providers Care Roll Coating Machine Operator Name Role Phone Julio César Briseno MD Primary Care Provider Eren Cr MD Unavailable Yohana Bowen MD Unavailable Sabrina Willard NP Unavailable Encounter Details Date Type Department Care Team (Late st Contact Info) Description 08/21/2021 Orders Only [facility] Oncology [address] [facility] Advanced Medicine 7th [place] [address] [place] [id number] Eren Cr MD [address] [facility] [address] [place] [address] Social History Tobacco Use Types Packs/Day Years [...] on file Legal Sex Female 2:41 PM PREVENTIVE MAINTENANCE ENGINEER Gender Identity Not on file Sexual Orientation Straight 02/19/2021 9: 29 AM CDT Occupation Industry Job Start Date Job End Date retired Not on file Not on file Not on file documented as of this encounter Plan of Treatment Not on file documented as of this encounter Visit Diagnoses Not on filedocumented in this encounter Care Teams Roll Coating Machine Operator Relationship Specialty Start Date End Date Julio César Briseno MD PCP - General 10/01/16 Eren Cr MD Referring Physician Medical Oncology 11/25/18 Yohana Bowen MD Radiation Oncologist Radiation Oncology 11/25/18 Sabrina Willard NP [address] [place] [address] Nurse Practitioner Medical Oncology 08/17/20 11/26/21 documented as of this encounter
--- OUTSIDE RECORDS SUMMARY | 2024-06-25 22:24 | XMS_ITS | Encounter Summary ---
Author Organization [facility] Address [address] [place] [address] Phone Care Team Providers Care Software Quality Manager Name Role Phone Julio César Briseno MD Primary Care Provider Eren Cr MD Unavailable Yohana Bowen MD Unavailable Sabrina Willard NP Unavailable [phone] Reason for Visit * Reason Onset Date Comments Fatigue 08/03/2021 Encounter Details Date Type Department Care Team (Late st Contact Info) Description 08/03/2021 Telephone [facility] Oncology [address] [facility] [address] 7th [place] [address] [place] [address] Eren Cr MD [address] [facility] [address] [place] [address] Fatigue Social History Tobacco Use Types Packs/Day Years [...] on file Legal Sex Female 2:41 PM ACOUSTIC INTELLIGENCE SPECIALIST Gender Identity Not on file Sexual Orientation Straight 02/19/2021 9: 29 AM CDT Occupation Industry Job Start Date Job End Date retired Not on file Not on file Not on file documented as of this encounter Miscellaneous Notes * Telephone Encounter - Sola Heredia - 08/03/2021 3:14 PM CST My Chart message received from patient's daughter requesting an appointment today for IV fluids forpatient who is feeling weak and fatigued and dizzy. Called and spoke to patient and she reports herlegs feel weak and she is fatigued, reports feeling dizzy, denies fevers, nausea or vomiting or recent Covid exposures. Patient is on trial and started study drug on 07/22/21. Discussed with Dr. Cr and patient scheduled for nurse evaluation in the cancer care clinic. Patient given instruction on where to go and to arrive at 5:30. Patient verbalizes understanding. STIC INTELLIGENCE SPECIALIST documented in this encounter Plan of Treatment Not on file documented as of this encounter Visit Diagnoses Not on filedocumented in this encounter Care Teams Software Quality Manager Relationship Specialty Start Date End Date Julio César Briseno MD PCP - General 10/01/16 rEen Cr MD Referring Physician Medical Oncology 11/25/18 Yohana Bowen MD Radiation Oncologist Radiation Oncology 11/25/18 Sabrina Willard NP [address] [place] [address] Nurse Practitioner Medical Oncology 08/17/20 11/26/21 documented as of this encounter
--- OUTSIDE RECORDS SUMMARY | 2024-06-25 22:24 | XMS_ITS | Encounter Summary ---
Author Organization [facility] Healthcare Address [address] [place] [address] Care Team Providers Care Traffic Lieutenant Name Role Phone Julio César Briseno MD Primary Care Provider [phone] Eren Cr MD Unavailable [phone] Yohana Bowen MD Unavailable Sabrina Willard NP Unavailable [phone] Reason for Referral * Diagnostic Imaging (Routine) - Closed Specialty Diagnoses / Procedures Referred By Evelyne bowman Referred To Contact Radiology Diagnoses Neuro-endocrine carcinoma (HCC) Procedures IR Port Placement Chest > 5 Years Eren Cr MD [address] [place] [address] Phone: tel: fax: [address] [phone] Referral ID Status Reason Start Date Expiration Date Visits Re quested Visits Authorized [id number] Closed 09/06/2021 10/06/2022 1 1 ING CONSULTANT Reason for Visit * Diagnostic Imaging (Routine) - Closed Specialty Diagnoses / Procedures Referred By Contac t Referred To Contact Radiology Diagnoses Neuro-endocrine carcinoma (HCC) Procedures IR Port Placement Chest > 5 Years Eren Cr MD [address] [facility] [address] [place] [address] Phone: tel: fax: [facility] [address] [facility] [place] [address] Referral ID Status Reason Start Date Expiration Date Visits Re quested Visits Authorized [id number] Closed 09/06/2021 10/06/2022 1 1 Encounter Details Date Type Department Care Team (Latest Contact Info) Description 09/14/2021 12:00 PM WEDDING CONSULTANT - 09/14/2021 4:10 PM WEDDING CONSULTANT Hospital Encounter [facility] Radiology [facility] [place] [address] [place] [address] Eren Cr MD [address] [facility] [address] [place] [address] Neuro-endocrine carcinoma (CMS/HCC) (HCC) Discharge Disposition: Discharge [...] on file Legal Sex Female 2:41 PM WEDDING CONSULTANT Gender Identity Not on file Sexual Orientation Straight 02/19/2021 9: 29 AM CDT Occupation Industry Job Start Date Job End Date retired Not on file Not on file Not on file documented as of this encounter Last Filed Vital Signs Vital Sign Reading Time Taken Comments Blood Pressure 113/51 09/14/2021 2:55 PM WEDDING CONSULTANT Pulse 74 09/14/2021 2:55 PM WEDDING CONSULTANT Temperature 36 ??C (96.8 ??F) 09/14/2021 2:55 PM WEDDING CONSULTANT Respiratory Rate 18 09/14/2021 2:55 PM WEDDING CONSULTANT Oxygen Saturation 93% 09/14/2021 2:55 PM WEDDING CONSULTANT Inhaled Oxygen Concentration - - Weight - - Height - - Body Mass Index - - documented in this encounter Discharge Diagnoses Diagnosis Other malignant neuroendocrine tumors (HCC) - OTHER MALIGNANT NEUROENDOCRINE TUMORS Essential (primary) hypertension - ESSENTIAL (PRIMARY) HYPERTENSION Unspecified essential hypertension Pure hypercholesterolemia, unspecified - PURE HYPERCHOLESTEROLEMIA, UNSPECIFIED Other group home (current) drug therapy - OTHER CORRECTION (CURRENT) DRUG THERAPY Allergy status to narcotic agent - ALLERGY STATUS TO NARCOTIC AGENT Allergy status to other drugs, medicaments and biological substances - ALLERGY STATUS TO OTHER DRUGS, MEDICAMENTS AND BIOLOGICAL SUBSTANCES Personal history of antineoplastic chemotherapy - PERSONAL HISTORY OF ANTINEOPLASTIC CHEMOTHERAPY Personal history of irradiation - PERSONAL HISTORY OF IRRADIATION Personal history of irradiation, presenting hazards to health Acquired absence of other specified parts of digestive tract - ACQUIRED ABSENCE OF OTHER SPECIFIED PARTS OF DIGESTIVE TRACT Family history of malignant neoplasm of breast - FAMILY HISTORY OF MALIGNANT NEOPLASM OF BREAST Family history of malignant neoplasm of other organs or systems - FAMILY HISTORY OF MALIGNANT NEOPLASM OF OTHER ORGANS OR SYSTEMS documented in this encounter Discharge Instructions * Discharge Instructions* Soniya Flores PA - 09/14/2021 2:48 PM WEDDING CONSULTANT Interventional Radiology Outpatient Discharge Instructions/Note Diagnosis: neuroendocrine Procedure: port placement Limitations: [x] No lifting greater than 5 pounds with [x] Right [] Left arm for 7 days. [x] You received medication that may affect your judgement. ?? Stay with a responsible person today. ?? Do not drive, operate machinery, make any legal or important decisions, or drink alcohol until tomorrow. ?? No smoking unless another adult is present. Other Diet: You may resume your previous diet. Medication: [x] Usual medications; check with your regular doctor for any questions. Do not take any new pain medicine, sleeping pills or sedatives unless approved by your doctor. [] Prescriptions given for: Procedure Site Care: [] teaching sheet given [x] Skin glue was used to close your incision. See teaching sheet. [x] Keep site clean and dry. No creams or lotions over the incisions for 3 weeks. [x] You may shower tomorrow. Do not soak or scrub the area for 3 weeks. [] Change the dressing daily and if [...] draining. To contact an Interventional Radiologist at [facility] call [phone] Saturday through Saturday from 7:30am-4:30pm. At all other times call [phone] and ask that the Interventional Radiologist be paged. To contact an Interventional Radiologist at [facility] call [phone] Saturday through Saturday from 7:30am-3:30pm. Special instructions: Please call Interventional Radiology for any procedure related questions or problems including: ?? Extreme swelling or bruising at the site. ?? Unusual drainage or bleeding from procedure site. ?? Fever of 101.5 F for more than 24 hours. ?? Severe procedure related pain. Follow up care: [] Return to Interventional Radiology on at Please come to: [] 3rd Floor [facility] [] 4th floor [facility] [] [facility] [] [facility] Please call [phone] to schedule a follow up appointment. You need to return in ING CONSULTANT documented in this encounter Medications at Time [...] capsuleIndications :supplement Take 1 tablet by mouth counter tender before breakfast 07/04/2016 4 cholecalciferol (VITAMIN D-3) 2,000 unit capsule Take 1 capsule (2,000 Units total) by mouth daily 30 capsule 2 04/25/2019 3 cholestyramine (QUESTRAN) 4 gram packet Take 1 packet by mouth 3 (three) times a day with meals 270 packet 3 09/04/2019 2 clotrimazole-betam ethasone (LOTRISONE) cream Apply 1 Application topically daily as needed (rash) 4 coenzyme [id number] 100-5 mg-unit capsuleIndications :supplement Take 1 tablet by mouth counter tender before breakfast 4 denosumab (XGEVA) 120 mg/1.7 [...] dose).?? Avoid Jas's Wort, grapefruit products and [place] oranges while on treatment. placed on hold [...] Post-Procedure Note - Soniya Flores PA - 09/14/2021 3:00 PM WEDDING CONSULTANT Radiology Brief Post Procedure Note Attending: Julio César Cormier M.D. Service Technician Copier: SERGEY Pal Sedation/Anesthesia: Min Sedation Pre-Op/Pre-Procedure Diagnosis: neuroendocrine Post-Op/Post-Procedure Diagnosis: same Procedure Performed: Port placement Procedure Findings: successful Complications: None Estimated Blood Loss: < 30 ml Specimens: None Condition: Stable Full report to follow. ING CONSULTANT * Pre-Procedure Note - Soniya Flores PA - 09/14/2021 12:38 PM WEDDING CONSULTANT PRE-SEDATION ASSESSMENT/H&P (LONG FORM) Patient is a 70 y.o. female with chief complaint of neuroendocrine cancer. Procedure: Port placement Indications/History: 70 year old female with neuroendocrine cancer referred for port placement for treatment. Denies KYLER or anticoagulation use. PMH: Past Medical History: Diagnosis Date ??? Arthritis [...] immunotherapy ??? Status post radiation therapy 09/2019 History of Sedation/Anesthesia Complications: No History of Difficult Airway: No PSH Past Surgical History: Procedure Laterality Date ??? [...] ??? JOINT REPLACEMENT Left 2014 ? ? ID REMOVAL OF TONSILS,<12 Y/O Tonsillectomy - (Added by TW Conv) ??? ID TOTAL ABDOM HYSTERECTOMY Hysterectomy - (Added by TW Conv) Social History: Social History Socioeconomic History ??? Marital status: Occupational History ??? Occupation: retired Tobacco Use ??? Smoking status: Never Smoker ??? Smokeless tobacco: Never Used Vaping Use ??? Vaping Use: Never used Substance and Sexual Activity ??? Alcohol use: Yes Alcohol/week: 1.0 standard drink Types: 1 Shots of liquor per week ??? Drug use: No ??? Sexual activity: Defer Social History Narrative : (Added by TW Conv) Retired : (Added by TW Conv) Occasional alcohol use : (Added by TW Conv) Family History: Family History Problem Relation Age of Onset ??? Breast cancer Sister 61 Adenocarcinoma of breast - (Added by TW Conv) ??? Suicidality Father Family history of suicide - (Added by TW Conv) ??? Other (old age) Mother ??? Melanoma Daughter 30 Current Meds: Current Facility-Administered Medications: ??? sodium chloride 0.9% flush 0.5-20 mL, 0.5-20 mL, intra-catheter, Q8H MAUREEN, Jeet Welch PA ??? sodium chloride 0.9% flush 0.5-20 mL, 0.5-20 mL, intra-catheter, PRN, Jeet Welch PA ??? sodium chloride 0.9% flush 10-20 mL, 10-20 mL, intra-catheter, PRN, Jeet Welch PA ??? sodium chloride 0.9% flush 5-10 mL, 5-10 mL, intra-catheter, Q12H MAUREEN, Jeet Welch PA ??? sodium chloride 0.9% infusion, 30 mL/hr, intravenous, Continuous, Jeet Welch PA, LastRate: 30 mL/hr at 09/14/21 1238, 30 mL/hr at 09/14/21 1238 Facility-Administered Medications Ordered in Other Encounters: ??? L-arginine 1.25%/L-lysine 1.25% infusion 1,000 mL, 1,000 mL, intravenous, Continuous, Meagan Amaya MD Home Meds: HOME MEDICATIONS : ascorbic acid, vitamin C, 500 mg capsule cholecalciferol (VITAMIN D-3) 2,000 unit capsule denosumab (Xgeva) 120 mg/1.7 mL (70 mg/mL) injection DULoxetine DR (CYMBALTA) 30 mg capsule fluticasone propionate (FLONASE) 50 mcg/actuation nasal spray [facility] cabozantinib/placebo (/[id number]) 20 mg tablet LORazepam (ATIVAN) 0.5 mg tablet octreotide (SandoSTATIN) 100 mcg/mL injection olmesartan-hydrochlorothiazide (BENICAR HCT) 20-12.5 mg per tablet albuterol HFA (PROVENTIL HFA,VENTOLIN HFA,PROAIR HFA) 90 mcg/actuation inhaler cholestyramine (QUESTRAN) 4 gram packet clotrimazole-betamethasone (LOTRISONE) cream coenzyme [id number] 100-5 mg-unit capsule denosumab (XGEVA) 120 mg/1.7 mL (70 mg/mL) injection diphenoxylate-atropine (LOMOTIL) 2.5-0.025 mg per tablet doxycycline hyclate 100 mg capsule everolimus (AFINITOR) 10 mg tablet gabapentin (NEURONTIN) 600 mg tablet loperamide HCl (IMODIUM A-D ORAL) montelukast (SINGULAIR) 10 mg tablet octreotide (SandoSTATIN) 50 mcg/mL (1 mL) syringe ondansetron (ZOFRAN) 8 mg tablet ostomy supplies misc oxybutynin (DITROPAN) 5 mg tablet potassium, sodium phosphates (PHOS-NAK) 280-160-250 mg powder in packet simvastatin (ZOCOR) 20 mg tablet triamcinolone (KENALOG) 0.1 % ointment Allergies: Allergies Allergen Reactions ??? Morphine Blisters ??? Ezetimibe-Simvastatin Muscle pain and Unknown Muscle weakness ??? Ramipril Cough REVIEW OF SYSTEMS: Review of systems per HPI and otherwise all other systems are negative Vitals: Vitals: 09/14/21 1224 BP: 138/71 Pulse: 92 Resp: 19 Temp: 36 ??C (96.8 ??F) SpO2: 96% Pertinent Labs: WNL for procedure Imaging reviewed PERTINENT PHYSICAL EXAM: Physical Exam Constitutional: Appearance: She is normal weight. HENT: Head: Normocephalic and atraumatic. Cardiovascular: Rate and Rhythm: Normal rate and regular rhythm. Pulmonary: Effort: Pulmonary effort is normal. Breath sounds: Normal breath sounds. Musculoskeletal: Cervical back: Normal range of motion and neck supple. Skin: General: Skin is warm and dry. Neurological: Mental Status: She is alert and oriented to person, place, and time. Assessment: Plan on RIJ port placement. Airway Exam: normal ASA Classification:Class 3: Patient with severe systemic disease Sedation Plan: Min Sedation PO status: Last PO: Patient had solid food today at 7am. Benefits, risks and alternatives of procedure and planned sedation have been discussed with the patient and/or their textiles sales representative. All questions answered and they agree to proceed. Cosigned by Julio César Cormier MD at 09/14/2021 3:35 PM WEDDING CONSULTANT ING CONSULTANT ING CONSULTANT documented in this encounter Plan of Treatment Not on file documented as of this encounter Procedures Procedure Name Priority Date/Time Associated Diagnosis Comments PORT PLACEMENT CHEST >5 YEARS Schedule Routine, Read Routine (OP Routine) 09/14/2021 2:48 PM WEDDING CONSULTANT Neuro-endocrine carcinoma (CMS/HCC) (HCC) documented in this encounter Results * IR Port Placement Chest > 5 Years (09/14/2021 2:48 PM WEDDING CONSULTANT) Anatomical Region Laterality Modality Chest N/A Radio Fluoroscop y 09/14/2021 2:51 PM WEDDING CONSULTANT Impressions 09/14/2021 2:51 PM WEDDING CONSULTANT Successful chest wall port placement. PLAN: The catheter is ready for immediate use. Please note that a power injectable port was placed. When treatment is completed, removal can be scheduled by calling [facility] - [phone] [facility] - [phone] Electronically signed by: Soniya Richardson 09/14/2021 2:51 PM WEDDING CONSULTANT EXAMINATION: ??PORT PLACEMENT USING ULTRASOUND GUIDANCE (STD TECHNIQUE) HISTORY: 70-year-old female with neuroendocrine carcinoma referred for port placement for treatment. Provider PRESENCE: Charlene Pal-Neil was present from the beginning to the end of the procedure. ?? SEDATION: Conscious sedation was used for the procedure. TECHNIQUE: The risks, benefits and alternatives were discussed and informed consent was obtained. ??Prior to beginning the procedure, [place] Protocol was used to confirm the patient's identity and planned procedure. ??Fluoroscopy time has been recorded in the electronic [...] prepped, draped and infiltrated with 1% lidocaine. ??The vein was accessed with a 21 gauge needle using realtime ultrasound guidance. ??A guidewire and catheter were then passed centrally using fluoroscopic guidance. The intravascular length from the access site to the right atrium was then measured. ??After infiltrating the skin in the subclavicular region with 1% lidocaine, a short transverse incision was made and the pocket for the power injectable port reservoir was formed by blunt dissection. The catheter was tunneled to the IJ access site, cut to the appropriate length and inserted through a peel-away sheath. ??The catheter was flushed with 100U/ml heparin and the access needle removed. The deep tissues were approximated using 2-0 Vicryl and the incision closed using skin glue. ??The incision in the lower neck was closed using 4-0 Monocryl and skin glue. ESTIMATED BLOOD LOSS: Minimal. CONDITION: Stable DISCHARGED TO: Recovery then home. FINDINGS: Ultrasound image shows a patent vein in the lower neck. ??The final fluoroscopic image demonstrates the catheter with its tip at the cavoatrial junction. ??No complications are seen. Procedure Note Soniya Flores PA - 09/14/2021 EXAMINATION: PORT PLACEMENT USING ULTRASOUND GUIDANCE (STD TECHNIQUE) HISTORY: 70-year-old female with neuroendocrine carcinoma referred for port placement for treatment. Provider PRESENCE: Virginia Pal was present from the beginning to the end of the procedure. SEDATION: Conscious sedation was used for the procedure. TECHNIQUE: The risks, benefits and alternatives were discussed and informed consent was obtained. Prior to beginning the procedure, [place] Protocol was used to confirm the patient's [...] the cavoatrial junction. No complications are seen. IMPRESSION: Successful chest wall port placement. PLAN: The catheter is ready for immediate use. Please note that a power injectable port was placed. When treatment is completed, removal can be scheduled by calling [facility] - [phone] [facility] - [phone] Electronically signed by: Soniya Flores Eren Cr MD IMG IR PROCEDURES Final Resul t documented in this encounter Visit Diagnoses Diagnosis Neuro-endocrine carcinoma (HCC) Other malignant neoplasm of unspecified site documented in this encounter Administered Medications Inactive Administered Medications - up to 3 most recent administrations Medication Order MAR Action Action Date Dose Rate Site fentaNYL (SUBLIMAZE) preservative free injection intravenous, Code/trauma/sedation medication, Starting on Lydia 09/14/21 at 1410 Given 09/14/2021 2:10 PM WEDDING CONSULTANT 50 mcg fentaNYL (SUBLIMAZE) preservative free injection intravenous, Code/trauma/sedation medication, Starting on Lydia 09/14/21 at 1430 Given 09/14/2021 2:30 PM WEDDING CONSULTANT 50 mcg heparin 100 unit/mL injection Code/trauma/sedation medication, Starting on Lydia 09/14/21 at 1440, Indications: Maintain Patency of Indwelling Vascular CatheterIndications:Maintain Patency of Indwelling Vascular Catheter Given 09/14/2021 2:40 PM WEDDING CONSULTANT 5 mL lidocaine PF (XYLOCAINE) 10 mg/mL (1 %) preservative free injection Code/trauma/sedation medication, Starting on Lydia 09/14/21 at 1430, Intra-Procedure (IR), Indications: Administration of Local AnesthesiaIndications:Administ ration of Local Anesthesia Given 09/14/2021 2:30 PM WEDDING CONSULTANT 10 mL lidocaine PF (XYLOCAINE) 10 mg/mL (1 %) preservative free injection Code/trauma/sedation medication, Starting on Lydia 09/14/21 at 1432, Intra-Procedure (IR), Indications: Administration of Local AnesthesiaIndications:Administ ration of Local Anesthesia Given 09/14/2021 2:17 PM WEDDING CONSULTANT 2 mL midazolam (VERSED) 1 mg/mL preservative free injection intravenous, Administer over 2 Minutes, Code/trauma/sedation medication, Starting on Lydia 09/14/21 at 1410, Intra-Procedure (IR) Given 09/14/2021 2:10 PM WEDDING CONSULTANT 1 mg midazolam (VERSED) 1 mg/mL preservative free injection intravenous, Administer over 2 Minutes, Code/trauma/sedation medication, Starting on Lydia 09/14/21 at 1430, Intra-Procedure (IR) Given 09/14/2021 2:30 PM WEDDING CONSULTANT 1 mg ondansetron (ZOFRAN) injection Administer over 2 Minutes, Code/trauma/sedation medication, Starting on Lydia 09/14/21 at 1425 Given 09/14/2021 2:25 PM WEDDING CONSULTANT 8 mg sodium chloride 0.9% flush 0.5-20 mL 0.5-20 mL, intra-catheter, Every 8 hours scheduled, First dose on Lydia 09/14/21 at 1400, Pre-Procedure (IR), Flush volume based on line type and size. sodium chloride 0.9% flush 0.5-20 mL 0.5-20 mL, intra-catheter, As needed, line care, Starting on Lydia 09/14/21 at 1216, Pre-Procedure (IR), Flush volume based on line type and size. Flush before and after each use. sodium chloride 0.9% flush 10-20 mL 10-20 mL, intra-catheter, As needed, line care, with each use, Starting on Lydia 09/14/21 at 1216, Pre-Procedure (IR), Flush volume based on line type, size, and protocol. sodium chloride 0.9% flush 5-10 mL 5-10 mL, intra-catheter, Every 12 hours scheduled, First dose on Lydia 09/14/21 at 1300, Pre-Procedure (IR), Flush volume based on line type, size, and protocol. sodium chloride 0.9% infusion 30 mL/hr, intravenous, Continuous, Starting on Lydia 09/14/21 at 1300, Pre-Procedure (IR) New Bag 09/14/2021 12:38 PM WEDDING CONSULTANT 30 mL/hr 30 mL/hr documented in this encounter Active and Recently Administered Medications Times are shown in WEDDING CONSULTANT. Scheduled Medication Order 09/12/2021 09/13/2021 09/14/2021 sodium chloride 0.9% flush 0.5-20 mL 0.5-20 mL, intra-catheter, Every 8 hours scheduled, First dose on Lydia 09/14/21 at 1400, Pre-Procedure (IR), Flush volume based on line type and size. 1400 (Due) sodium chloride 0.9% flush 5-10 mL 5-10 mL, intra-catheter, Every 12 hours scheduled, First dose on Lydia 09/14/21 at 1300, Pre-Procedure (IR), Flush volume based on line type, size, and protocol. 1300 (Due) Continuous Medication Order 09/12/2021 09/13/2021 09/14/2021 sodium chloride 0.9% infusion 30 mL/hr, intravenous, Continuous, Starting on Lydia 09/14/21 at 1300, Pre-Procedure (IR) 1227 (Due)1238 (New Bag - Provider: Rachelle Mi RN) PRN Medication Order 09/12/2021 09/13/2021 09/14/2021 fentaNYL (SUBLIMAZE) preservative free injection (COMPLETED) intravenous, Code/trauma/sedation medication, Starting on Lydia 09/14/21 at 1410 1410 (Given - Provid er: Sabrina Ruiz, [place]) fentaNYL (SUBLIMAZE) preservative free injection (COMPLETED) intravenous, Code/trauma/sedation medication, Starting on Lydia 09/14/21 at 1430 1430 (Given - Provid er: Sabrina Ruiz, [place]) heparin 100 unit/mL injection (COMPLETED) Code/trauma/sedation medication, Starting on Lydia 09/14/21 at 1440, Indications: Maintain Patency of Indwelling Vascular Catheter 1440 (Given - Provid er: SERGEY Onofre) lidocaine PF (XYLOCAINE) 10 mg/mL (1 %) preservative free injection (COMPLETED) Code/trauma/sedation medication, Starting on Lydia 09/14/21 at 1430, Intra-Procedure (IR), Indications: Administration of Local Anesthesia 1430 (Given - Provid er: SERGEY Onofre - Comment: R chest) lidocaine PF (XYLOCAINE) 10 mg/mL (1 %) preservative free injection (COMPLETED) Code/trauma/sedation medication, Starting on Lydia 09/14/21 at 1432, Intra-Procedure (IR), Indications: Administration of Local Anesthesia 1417 (Given - Provid er: SERGEY Onofre - Comment: R neck) midazolam (VERSED) 1 mg/mL preservative free injection (COMPLETED) intravenous, Administer over 2 Minutes, Code/trauma/sedation medication, Starting on Lydia 09/14/21 at 1410, Intra-Procedure (IR) 1410 (Given - Provid er: Sabrina Ruiz, [place]) midazolam (VERSED) 1 mg/mL preservative free injection (COMPLETED) intravenous, Administer over 2 Minutes, Code/trauma/sedation medication, Starting on Lydia 09/14/21 at 1430, Intra-Procedure (IR) 1430 (Given - Provid er: Sabrina Ruiz, RN) ondansetron (ZOFRAN) injection (COMPLETED) Administer over 2 Minutes, Code/trauma/sedation medication, Starting on Lydia 09/14/21 at 1425 1425 (Given - Provid er: SERGEY Onofre) sodium chloride 0.9% flush 0.5-20 mL 0.5-20 mL, intra-catheter, As needed, line care, Starting on Lydia 09/14/21 at 1216, Pre-Procedure (IR), Flush volume based on line type and size. Flush before and after each use. sodium chloride 0.9% flush 10-20 mL 10-20 mL, intra-catheter, As needed, line care, with each use, Starting on Lydia 09/14/21 at 1216, Pre-Procedure (IR), Flush volume based on line type, size, and protocol. documented in this encounter Orders Medications Ordered That Brett ht Not Have Been Administered Count Last Ordered Date First Ordered Date sodium chloride 0.9% flush 0.5-20 mL 2 09/05 sodium chloride 0.9% flush 10-20 mL 1 09/14 sodium chloride 0.9% flush 5-10 mL 1 2021 documented in this encounter Care Teams Traffic Lieutenant Relationship Specialty Start Date End Date Julio César Briseno MD PCP - General 10/01/16 Eren Cr MD Referring Physician Medical Oncology 11/25/18 Yohana Bowen MD Radiation Oncologist Radiation Oncology 11/25/18 Sabrina Willard NP [address] [place] [address] Nurse Practitioner Medical Oncology 08/17/20 11/26/21 documented as of this encounter
--- OUTSIDE RECORDS SUMMARY | 2024-06-25 22:24 | XMS_ITS | Encounter Summary ---
Author Organization [facility] Address [address] [place] [address] Phone Care Team Providers Care Cranberry Bog Supervisor Name Role Phone Julio César Briseno MD Primary Care Provider [phone] Eren Cr MD Unavailable [phone] Yohana Bowen MD Unavailable Sabrina Willard NP Unavailable [phone] Reason for Visit * Episode Based Medications (Routine) - Closed Specialty Diagnoses / Procedures Referred By Contac t Referred To Contact Diagnoses Neuro-endocrine carcinoma (HCC) Procedures study [id number] phase III cabozantinib Eren Cr MD [address] [facility] [address] [place] [address] Phone: tel: fax: [facility] at [facility] and [facility] [address] [facility] Advanced Medicine 7th [place] [address] Phone: tel: Referral ID Status Reason Start Date Expiration Date Visits Re quested Visits Authorized [id number] Closed 06/21/2021 06/26/2024 1 99 Encounter Details Date Type Department Care Team (Late st Contact Info) Description 09/04/2021 10:30 AM ADVERTISING EDITOR Lab [facility] Oncology [address] [facility] 7th [place] [address] [place] [address] Neuro-endocrine carcinoma (CMS/HCC) (HCC) Social History Tobacco [...] on file Legal Sex Female 2:41 PM ADVERTISING EDITOR Gender Identity Not on file Sexual Orientation Straight 02/19/2021 9: 29 AM CDT Occupation Industry Job Start Date Job End Date retired Not on file Not on file Not on file documented as of this encounter Nursing Notes * Felicity Edmond RN - 09/04/2021 10:30 AM CST Nasopharyngeal swab obtained for respiratory pathogen RTISING EDITOR documented in this encounter Plan of Treatment Not on file documented as of this encounter Procedures Procedure Name Priority Date/Time Associated Diagnosis Comments RESPIRATORY PATHOGEN PANEL STAT 09/04/2021 2:10 PM ADVERTISING EDITOR Neuro-endocrine carcinoma (CMS/HCC) (HCC) EGFR STAT 09/04/2021 11:00 AM ADVERTISING EDITOR Neuro-endocrine carcinoma (CMS/HCC) (HCC) DIFFERENTIAL AUTO STAT 09/04/2021 11: 00 AM ADVERTISING EDITOR Neuro-endocrine carcinoma (CMS/HCC) (HCC) CBC WITH AUTO DIFFERENTIAL STAT 09/04/2021 11:00 AM ADVERTISING EDITOR Neuro-endocrine carcinoma (CMS/HCC) (HCC) PHOSPHORUS STAT 09/04/2021 11:00 AM ADVERTISING EDITOR Neuro-endocrine carcinoma (CMS/HCC) (HCC) MAGNESIUM STAT 09/04/2021 11:00 AM ADVERTISING EDITOR Neuro-endocrine carcinoma (CMS/HCC) (HCC) COMPREHENSIVE METABOLIC PANEL STAT 09/04/2021 11:00 AM ADVERTISING EDITOR Neuro-endocrine carcinoma (CMS/HCC) (HCC) documented in this encounter Results * Respiratory pathogen panel Nasopharyngeal (09/04/2021 2:10 PM ADVERTISING EDITOR) Pathologist [facility] Influenza A RNA Not Detected Not Detected [facility] Influenza B RNA Not Detected Not Detected [facility] RSV RNA Not Detected Not Detected [facility] COVID-19 RNA Not Detected Not Detected [facility] Coronavirus 229E RNA Not Detected Not Detected [facility] Coronavirus HKU1 RNA Not Detected Not Detected [facility] Coronavirus NL63 RNA Not Detected Not Detected [facility] Coronavirus OC43 RNA Not Detected Not Detected [facility] Adenovirus DNA Not Detected Not Detected [facility] Metapneumovirus RNA Not Detected Not Detected [facility] Rhinovirus/Enterov irus RNA Not Detected Not Detected [facility] Parainfluenza 1 RNA Not Detected Not Detected [facility] Parainfluenza 2 RNA Not Detected Not Detected [facility] Parainfluenza 3 RNA Not Detected Not Detected [facility] Parainfluenza 4 RNA Not Detected Not Detected [facility] B. pertussis DNA Not Detected Not Detected [facility] B. parapertussis DNA Not Detected Not Detected [facility] C. pneumoniae DNA Not Detected Not Detected [facility] M. pneumoniae DNA Not Detected Not Detected [facility] Employeed in healthcare? No [facility] status? No [facility] Group care resident? No [facility] Hospitalized? No [facility] Is patient in ICU? No [facility] Symptomatic as defined by CDC? Yes [facility] Nasopharyngeal 09/04/2021 2: 10 PM ADVERTISING EDITOR 09/04/2021 3:00 PM ADVERTISING EDITOR Narrative [facility] - 09/04/2021 4:05 PM ADVERTISING EDITOR Date of Symptom Onset->09/02/21 Reason for testing?->Known exposure to confirmed or suspected COVID-19 case Known exposure to confirmed or suspected COVID-19 case?->No Surveillance testing for transplant patient?->No us Eren Cr MD LAB MICROBIOLOGY - GENERAL OR DERABLES Final Result [facility] Department [place] [address] * (ABNORMAL) eGFR (09/04/2021 11:00 AM ADVERTISING EDITOR) eGFR 35(L) 90 - 130 mL/min/1. 73 m2 [facility] Comment: Interpretive Data Reference Interval Normal [...] was last reviewed 2021. Testing performed by: [facility], [address] [place] [phone] Blood 09/04/2021 11:0 0 AM ADVERTISING EDITOR 09/04/2021 11:01 AM ADVERTISING EDITOR us Eren Cr MD LAB BLOOD ORDERABLES Final Re sult [facility] Department [place] [address] * (ABNORMAL) Differential, auto (09/04/2021 11:00 AM ADVERTISING EDITOR) Neutrophil abs 2.5 1.8 - 6.6 K/cumm [facility] Comment:Testing performed by : [facility], [address] [place] [phone] Lymphocyte abs 1.0(L) 1.2 - 3.3 K/cumm [facility] BJ Comment:Testing performed by : [facility], [address] [place] [phone] Monocyte abs 0.3 0.2 - 1.2 K/cumm [facility] BJ Comment:Testing performed by : [facility], [address] [place] [phone] Eosinophil abs 0.1 0.0 - 0.5 K/cumm [facility] BJ Comment:Testing performed by : [facility], [address] [place] [phone] Basophil abs 0.0 0.0 - 0.2 K/cumm [facility] BJ Comment:Testing performed by : [facility], [address] [place] [phone] Neutrophil pct 63.3 % [facility] Comment: Interpretive Data Percent cell count reference ranges are not reported, since discordance with absolute values may lead to misinterpretation of CBC data. Current Interpretive Data was last revised on 2017. Testing performed by: [facility], [address] [place] [phone] Lymphocyte pct 25.0 % [facility] Comment: Interpretive Data Percent cell count reference ranges are not reported, since discordance with absolute values may lead to misinterpretation of CBC data. Current Interpretive Data was last revised on 2017. Testing performed by: [facility], [address] [place] [phone] Monocyte pct 7.9 % [facility] Comment:Testing performed by : [facility], [address] [place] [phone] Eosinophil pct 3.1 % CERMINNIE BJ Comment:Testing performed by : [facility], [address] [place] [phone] Basophil pct 0.7 % [facility]ERMINNIE BJ Comment:Testing performed by : [facility], [address] [place] [phone] Blood 09/04/2021 11:0 0 AM ADVERTISING EDITOR 09/04/2021 11:01 AM ADVERTISING EDITOR us Eren Cr MD LAB BLOOD ORDERABLES Final Re sult [facility]ASON [facility] Department [place] [address] * (ABNORMAL) CBC with auto differential (09/04/2021 11:00 AM ADVERTISING EDITOR) WBC 4.0 3.8 - 9.8 K/cumm JASON BLACK Comment:Testing performed by : [facility], [address] [place] [phone] Hgb 15.5(H) 12.1 - 15.1 g/dL CERMINNIE BLACK Comment:Testing performed by : [facility], [address] [place] [phone] Hct 44.2 36.1 - 44.3 % JASON BLACK Comment:Testing performed by : [address] [phone] Plt 101(L) 140 - 440 K/cumm JASON BLACK Comment:Testing performed by : [facility], [address] [place] [phone] MPV 8.4 6.8 - 10.4 fL JASON BJ Comment:Testing performed by : [address] [phone] RBC 5.06(H) 3.90 - 5.00 M/cumm JASON BLACK Comment:Testing performed by : [address] [phone] MCV 87.5 80.0 - 97.6 fL CERMINNIE BLACK Comment:Testing performed by : [facility], [address] [place] [phone] MCH 30.6 26.7 - 33.7 pg JASON BLACK Comment:Testing performed by : [facility], [address] [place] [phone] MCHC 35.0 32.7 - 35.5 g/dL JASON BLACK Comment:Testing performed by : [facility], [address] [place] [phone] RDW CV 14.6 11.8 - 14.6 % JASON BLACK Comment:Testing performed by : [facility], [address] [place] [phone] NRBC abs 0.00 0.00 - 0.01 K/cumm JASON BLACK Comment:Testing performed by : [facility], [address] [place] [phone] Blood 09/04/2021 11:0 0 AM ADVERTISING EDITOR 09/04/2021 11:01 AM ADVERTISING EDITOR us Eren Cr MD LAB BLOOD ORDERABLES Final Re sult JASON BLACK [facility] Department of Laboratories [place], [place] [id number] * (ABNORMAL) Comprehensive metabolic panel (09/04/2021 11:00 AM ADVERTISING EDITOR) Sodium 135 135 - 145 mmol/L JASON BLACK Comment:Testing performed by : [facility], [address] [place] [phone] Potassium, pl 4.3 3.3 - 4.9 mmol/L JASON BLACK Comment:Testing performed by : [facility], [address] [place] [phone] Chloride 99 97 - 110 mmol/L JASON BLACK Comment:Testing performed by : [facility], [address] [place] [phone] CO2 25 22 - 32 mmol/L JASON BLACK Comment:Testing performed by : [facility], [address] [place] [phone] Anion gap 11 2 - 15 mmol/L [facility]ER BJ Comment:Testing performed by : [facility], [address] [place] [phone] BUN 19 8 - 25 mg/dL C[facility]ER BJ Comment:Testing performed by : [facility], [address] [place] [phone] Creatinine 1.55(H) 0.60 - 1.10 mg/dL C[facility]ER BJ Comment:Testing performed by : [facility], [address] [place] [phone] Glucose 121 70 - 199 mg/dL CERNER [...] was last revised 2017. Testing performed by: [facility], [address] [place] [phone] Calcium 10.9(H) 8.5 - 10.3 mg/dL [facility]ER BJ Comment:Testing performed by : [address] [phone] Bilirubin, total 1.1 0.1 - 1.2 mg/dL [facility]ER BJ Comment:Testing performed by : [facility], [address] [place] [phone] Protein, pl 7.2 6.5 - 8.5 g/dL [facility]ER BJ Comment:Testing performed by : [address] [phone] Albumin 4.4 3.5 - 5.0 g/dL [facility] BJ Comment:Testing performed by : [address] [phone] Alk phos 111 40 - 130 Units/L [facility]ER BJ Comment:Testing performed by : [facility], [address] [place] [phone] ALT 45 7 - 45 Units/L [facility] Comment:Testing performed by : [facility], [address] [place] [phone] AST 60(H) 10 - 45 Units/L [facility] Comment:Testing performed by : [facility], [address] [place] [phone] Blood 09/04/2021 11:0 0 AM ADVERTISING EDITOR 09/04/2021 11:01 AM ADVERTISING EDITOR Result [facility] Eren Cr MD LAB BLOOD ORDERABLES Final Re sult Performing Organization Address [facility] Co de Phone Number [facility] [place] [address] * Magnesium (09/04/2021 11:00 AM ADVERTISING EDITOR) Magnesium 1.5 1.4 - 2.5 mg/dL [facility] Comment:Testing performed by : [facility], [address] [place] [phone] Blood 09/04/2021 11:0 0 AM ADVERTISING EDITOR 09/04/2021 11:01 AM ADVERTISING EDITOR Result [facility] Eren Cr MD LAB BLOOD ORDERABLES Final Re sult Performing Organization Address [facility] de Phone Number [facility] [place] [address] * Phosphorus (09/04/2021 11:00 AM ADVERTISING EDITOR) Phosphorus, pl 2.7 2.3 - 4.5 mg/dL [facility] Comment:Testing performed by : [facility], [address] [place] [phone] Blood 09/04/2021 11:0 0 AM ADVERTISING EDITOR 09/04/2021 11:01 AM ADVERTISING EDITOR Result [facility] Eren Cr MD LAB BLOOD ORDERABLES Final Re sult Performing Organization Address [facility]/ZIP Co de Phone Number [facility] Department [place] [address] documented in this encounter Visit Diagnoses Diagnosis Neuro-endocrine carcinoma (HCC) Other malignant neoplasm of unspecified site documented in this encounter Orders Lab Orders Without Results Count Last Ordered D ate First Ordered Date ONCBCN STUDY LAB 1 1 09/04/2021 Appointment Requests Count Last Ordered Date Fi rst Ordered Date ONCBCN LAB APPOINTMENT 1 09/04/2021 documented in this encounter Care Teams Cranberry Bog Supervisor Relationship Specialty Start Date End Date Julio César Briseno MD PCP - General 10/01/16 Eren Cr MD Referring Physician Medical Oncology 11/25/18 Yohana Bowen MD Radiation Oncologist Radiation Oncology 11/25/18 Sabrina Willard NP [address] [place] [address] Nurse Practitioner Medical Oncology 08/17/20 11/26/21 documented as of this encounter
--- OUTSIDE RECORDS SUMMARY | 2024-06-25 22:24 | XMS_ITS | Encounter Summary ---
Author Organization [facility] Address [address] [place] [address] Phone Care Team Providers Care Towel Weaver Name Role Phone Julio César Briseno MD Primary Care Provider [phone] Eren Cr MD Unavailable [phone] Yohana Bowen MD Unavailable Sabrina Willard NP Unavailable [phone] Reason for Visit * Episode Based Medications (Routine) - Closed Specialty Diagnoses / Procedures Referred By Contac t Referred To Contact Diagnoses Neuro-endocrine carcinoma (HCC) Procedures study [id number] phase III cabozantinib Eren Cr MD [address] [facility] [address] [place] [address] Phone: tel: fax: [facility] at [facility] and [facility] [address] [facility] Advanced Medicine 7th [place] [address] Phone: tel: Referral ID Status Reason Start Date Expiration Date Visits Re quested Visits Authorized [id number] Closed 06/21/2021 06/26/2024 1 99 Encounter Details Date Type Department Care Team (Late st Contact Info) Description 08/07/2021 2:30 PM DENTAL OFFICE MANAGER Office Visit [facility] Oncology [address] [facility] 7th [place] [address] [place] [address] Eren Cr MD [address] [facility] [address] [place] [address] Neuro-endocrine carcinoma (CMS/HCC) (HCC) (Primary Dx); Bone [...] on file Legal Sex Female 2:41 PM DENTAL OFFICE MANAGER Gender Identity Not on file Sexual Orientation Straight 02/19/2021 9: 29 AM CDT Occupation Industry Job Start Date Job End Date retired Not on file Not on file Not on file documented as of this encounter Last Filed Vital Signs Vital Sign Reading Time Taken Comments Blood Pressure 157/86 08/07/2021 3:20 PM DENTAL OFFICE MANAGER taken by team Pulse 76 08/07/2021 2:23 PM DENTAL OFFICE MANAGER Temperature 36.2 ??C (97.2 ??F) 08/07/2021 2 :23 PM DENTAL OFFICE MANAGER Respiratory Rate 18 08/07/2021 2:23 PM DENTAL OFFICE MANAGER Oxygen Saturation 98% 08/07/2021 2:2 3 PM DENTAL OFFICE MANAGER Inhaled Oxygen Concentration - - Weight 80 kg (176 lb 6.4 oz) 08/07/2021 2:26 PM DENTAL OFFICE MANAGER Height - - Body Mass Index 32.17 07/17/2021 2:15 PM DENTAL OFFICE MANAGER documented in this encounter Progress Notes * Eren Cr Jr., MD - 08/07/2021 2:30 PM CST MEDICAL ONCOLOGY OUTPATIENT ROV NOTE La Karishma Chung : 1950 DATE OF VISIT: 08/07/21 Oncology History Overview Note TREATMENT HISTORY: 1. [...] time, she also underwent right colectomy in [facility] [place] by Dr. Greyson Reeves. Biopsy revealed [...] No evidence of disease progression in the chest Neuroendocrine carcinoma (CMS/HCC) (HCC) 10/03/2015 Initial Diagnosis [...] appear to be tolerating her treatments well and denies ant fevers chills, nausea, vomiting. HerBP was elevated when she came to clinic (cuff was too small) but repeat BP determinations with appropriate cuff were much lower at 157/86 . She notes no headaches. ALLERGIES: Allergies Allergen Reactions ??? Morphine Blisters ??? Ezetimibe-Simvastatin Muscle pain and Unknown Muscle weakness ??? Ramipril Cough ROS: A complete review of systems was performed and was negative other than those mentioned in the aboveinterval history. All other systems negative. OBJECTIVE: Most Recent Vitals: BP: (S) (!) 173/81 (notified team) Temp: 36.2 ??C (97.2 ??F) Temp src: Transdermal Pulse: 76 Resp: 18 SpO2: 98 % Weight: 80 kg (176 lb 6.4 oz) PHYSICAL EXAM: ECOG PS: [...] No rashes over exposed skin NEURO: A&Ox4, loose hand packer grossly intact by conversation, moving all extremities [...] aredisplayed. Labs - Hematology Latest Ref Range 07/13/21 07/17/21 08/03/21 08/07/21 WBC 3.8 - 9.8 K/cumm 4.9 5.4 4.5 4.1 Total Hb, POC 12.1 - 15.1 g/dL 14.2 14.0 14.4 14.2 Hct 36.1 - 44.3 % 42.3 41.1 40.8 40.4 Plt 140 - 440 K/cumm 155 149 127 (A) 103 (A) Neutrophil abs 1.8 - 6.6 K/cumm 3.6 4.1 3.3 3.1 Lymphocytes, abs 1.2 - 3.3 K/cumm 0.5 (A) 0.5 (A) 0.6 (A) 0.6 (A) (A) Abnormal value Comments are available for some flowsheets but are not being displayed. Chem/LFT Lab History Some values may be hidden. Unless noted otherwise, only the newest values recorded on each date aredisplayed. Labs-Chem/LFT Latest Ref Range 07/13/21 07/17/21 08/03/21 08/07/21 Sodium 135 - 145 mmol/L 138 141 139 139 Creatinine 0.60 - 1.10 mg/dL 1.04 1.04 1.12 (A) 0.96 Bilirubin, total 0.1 - 1.2 mg/dL 0.6 0.5 0.5 0.6 AST 10 - 45 Units/L 38 19 75 (A) 42 ALT 7 - 45 Units/L 21 12 50 (A) 33 CrCl- Actual Body Weight (Cockcroft-Gault) 61.6 61.4 56.2 66.9 (A) Abnormal value Comments are available for [...] 1. Metastatic neuroendocrine tumor with liver metastases. She appear to be tolerating her treatments on study well. She will proceed on CABINET with cabozantinib/placebo. Eren Cr MD Medical Oncology AL OFFICE MANAGER documented in this encounter Plan of Treatment Not on file documented as of this encounter Visit Diagnoses Diagnosis Neuro-endocrine carcinoma (HCC)- Primary Other malignant neoplasm of unspecified site Bone metastasis Secondary malignant 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) documented in this encounter Orders Appointment Requests Count Last Ordered Date Fi rst Ordered Date ONCBCN CLINIC APPOINTMENT REQUEST 1 022 documented in this encounter Care Teams Towel Weaver Relationship Specialty Start Date End Date Julio César Briseno MD PCP - General 10/01/16 Eren Cr MD Referring Physician Medical Oncology 11/25/18 Yohana Bowen MD Radiation Oncologist Radiation Oncology 11/25/18 Sabrina Willard NP [address] [place] [address] Nurse Practitioner Medical Oncology 08/17/20 11/26/21 documented as of this encounter
--- OUTSIDE RECORDS SUMMARY | 2024-06-25 22:24 | XMS_ITS | Encounter Summary ---
Author Organization [facility] Address [address] [place] [address] Phone Care Team Providers Care Roofing Layer Name Role Phone Julio César Briseno MD Primary Care Provider [phone] Eren Cr MD Unavailable [phone] Yohana Bowen MD Unavailable Sabrina Willard NP Unavailable [phone] Reason for Referral * Diagnostic Imaging (Routine) - Closed Specialty Diagnoses / Procedures Referred By Contac t Referred To Contact Radiology Diagnoses Neuro-endocrine carcinoma (HCC) Procedures IR Port Placement Chest > 5 Years Eren Cr MD [address] [place] [address] Phone: tel: fax: [address] [phone] Referral ID Status Reason Start Date Expiration Date Visits Re quested Visits Authorized [id number] Closed 09/06/2021 10/06/2022 1 1 ETARY TO THE VICE PRESIDENT Encounter Details Date Type Department Care Team (Late st Contact Info) Description 09/06/2021 Orders Only [facility] Oncology [facility] 7th [place] [address] [place] [address] Eren Cr MD [address] [facility] [address] [place] [address] Neuro-endocrine carcinoma (CMS/HCC) (HCC) (Primary Dx) Social [...] on file Legal Sex Female 2:41 PM SECRETARY TO THE VICE PRESIDENT Gender Identity Not on file Sexual Orientation Straight 02/19/2021 9: 29 AM CDT Occupation Industry Job Start Date Job End Date retired Not on file Not on file Not on file documented as of this encounter Plan of Treatment Not on file documented as of this encounter Results * IR Port Placement Chest > 5 Years (09/14/2021 2:48 PM SECRETARY TO THE VICE PRESIDENT) Anatomical Region Laterality Modality Chest N/A Radio Fluoroscop y 09/14/2021 2:51 PM SECRETARY TO THE VICE PRESIDENT Impressions 09/14/2021 2:51 PM SECRETARY TO THE VICE PRESIDENT Successful chest wall port placement. PLAN: The catheter is ready for immediate use. Please note that a power injectable port was placed. When treatment is completed, removal can be scheduled by calling [facility] - [phone] [facility] - [phone] Electronically signed by: Soniya Richardson 09/14/2021 2:51 PM SECRETARY TO THE VICE PRESIDENT EXAMINATION: ??PORT PLACEMENT USING ULTRASOUND GUIDANCE (STD TECHNIQUE) HISTORY: 70-year-old female with neuroendocrine carcinoma referred for port placement for treatment. Provider PRESENCE: Virginia Pal was present from the beginning to the end of the procedure. ?? SEDATION: Conscious sedation was used for the procedure. TECHNIQUE: The risks, benefits and alternatives were discussed and informed consent was obtained. ??Prior to beginning the procedure, Concho Protocol was used to confirm the patient's [...] was obtained. Prior to beginning the procedure, [place]cho Protocol was used to confirm the patient's [...] completed, removal can be scheduled by calling [facility] - [phone] [facility] - [phone] Electronically signed by: Soniya Flores us Eren Cr MD IMG IR PROCEDURES Final Resul t documented in this encounter Visit Diagnoses Diagnosis Neuro-endocrine carcinoma (HCC)- Primary Other malignant neoplasm of unspecified site Neuro-endocrine carcinoma (HCC) Other malignant neoplasm of unspecified site documented in this encounter Additional Health Concerns Infection Onset Date Last Indicated Resolved Time Exposure, COVID-19 Comment:Added automatically based on COVID19 lab answers indicating exposure risk 09/04/2021 09/04/2021 09/14/2021 3:[address] documented as of this encounter Care Teams Roofing Layer Relationship Specialty Start Date End Date Julio César Briseno MD PCP - General 10/01/16 Eren Cr MD Referring Physician Medical Oncology 11/25/18 Yohana Bowen MD Radiation Oncologist Radiation Oncology 11/25/18 Sabrina Willard NP [address] [place] [address] Nurse Practitioner Medical Oncology 08/17/20 11/26/21 documented as of this encounter
--- OUTSIDE RECORDS SUMMARY | 2024-06-25 22:24 | XMS_ITS | Encounter Summary ---
Author Organization [facility] Address [address] [place] [address] Phone Care Team Providers Care Batch Operator Name Role Phone Julio César Briseno MD Primary Care Provider [phone] Eren Cr MD Unavailable Yohana Bowen MD Unavailable Sabrina Willard NP Unavailable Encounter Details Date Type Department Care Team (Late st Contact Info) Description 09/04/2021 Orders Only [facility] Oncology [address] [facility] Advanced Medicine 7th [place] [address] [place] [address] Eren Cr MD [address] [facility] [address] [place] [address] Neuroendocrine carcinoma (CMS/HCC) (HCC) (Primary Dx) Social [...] on file Legal Sex Female 2:41 PM TAR DISTILLATION SUPERVISOR Gender Identity Not on file Sexual [...] COVID: Suspected 09/04/2021 09/04/2021 09/04/2021 4:06 PM TAR DISTILLATION SUPERVISOR documented as of this encounter Care Teams Batch Operator Relationship Specialty Start Date End Date Julio César Briseno MD PCP - General 10/01/16 Eren Cr MD Referring Physician Medical Oncology 11/25/18 Yohana Bowen MD Radiation Oncologist Radiation Oncology 11/25/18 Sabrina Willard NP [address] [place] [address] Nurse Practitioner Medical Oncology 08/17/20 11/26/21 documented as of this encounter
--- OUTSIDE RECORDS SUMMARY | 2024-06-25 22:25 | XMS_ITS | Encounter Summary ---
Author Organization [facility] Address [address] [place] [address] Phone Care Team Providers Care Golf Club Weigher Name Role Phone Julio César Briseno MD Primary Care Provider [phone] Eren Cr MD Unavailable [phone] Yohana Bowen MD Unavailable Sabrina Willard NP Unavailable [phone] Reason for Visit * Reason Onset Date Comments test results/arm pain 07/05/2021 Encounter Details Date Type Department Care Team (Late st Contact Info) Description 07/05/2021 Telephone [facility] Oncology [address] [facility] Advanced Medicine 7th [place] [address] [place] [address] Eren Cr MD [address] [facility] [address] [place] [address] test results/arm pain Social History Tobacco Use Types Packs/Day Years [...] file Legal 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 I spoke with Colleen after checking with Dr. Cr, study team and clinical pharmacist, and let them know if was okay to take the hydrocodone for pain. Discussed also the xray results showing no fracture, subtle sclerotic met lesion noted. No comment regarding the size of lesion. They were concerned as to if it is normal to have pain in areas where the cancer is and let them know it is. They will let us know if pain is not better with meds. Patient will follow up again as scheduled and hopes to begin treatment on study protocol. [place] PERFORMANCE SPECIALIST documented in this encounter Plan of Treatment Not on file documented as of this encounter Visit Diagnoses Not on filedocumented in this encounter Care Teams Golf Club Weigher Relationship Specialty Start Date End Date Julio César Briseno MD PCP - General 10/01/16 Eren Cr MD Referring Physician Medical Oncology 11/25/18 Yohana Bowen MD Radiation Oncologist Radiation Oncology 11/25/18 Sabrina Willard NP [address] [place] [address] Nurse Practitioner Medical Oncology 08/17/20 11/26/21 documented as of this encounter
--- OUTSIDE RECORDS SUMMARY | 2024-06-25 22:25 | XMS_ITS | Encounter Summary ---
Author Organization [facility] Address [address] [place] [address] Phone Care Team Providers Care Dosier Operator Name Role Phone Julio César Briseno MD Primary Care Provider Eren Cr MD Unavailable [phone] Yohana Bowen MD Unavailable Sabrina Willard NP Unavailable Encounter Details Date Type Department Care Team (Late st Contact Info) Description 07/27/2021 Orders Only [facility] Oncology [address] 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, [address] [place] [phone] Blood 08/07/2021 2:12 PM LUMBER MATERIAL HANDLER 08/07/2021 2:15 PM LUMBER MATERIAL HANDLER Eren Cr MD LAB BLOOD ORDERABLES Final Re sult Performing Organization Address City/[facility]/ZIP Co de Phone Number [facility] Department of Laboratories [place], [place] [id number] * Magnesium (08/07/2021 2:12 PM LUMBER MATERIAL HANDLER) [facility] Magnesium 1.6 1.4 - 2.5 mg/dL [facility] Comment:Testing performed by : [facility], [address] [place] [phone] Blood 08/07/2021 2:12 PM LUMBER MATERIAL HANDLER 08/07/2021 2:15 PM LUMBER MATERIAL HANDLER Eren Cr MD LAB BLOOD ORDERABLES Final Re sult Performing Organization Address City/[facility]/ZIP Co de Phone Number [facility] [place] [address] * (ABNORMAL) Comprehensive metabolic panel (08/07/2021 2:12 PM LUMBER MATERIAL HANDLER) [facility] Sodium 139 135 - 145 mmol/L [facility] Comment:Testing performed by : [facility], [address] [place] [phone] Potassium, pl 4.2 3.3 - 4.9 mmol/L [facility] Comment:Testing performed by : [facility], [address] [place] [phone] Chloride 103 97 - 110 mmol/L [facility] Comment:Testing performed by : [facility], [address] [place] [phone] CO2 29 22 - 32 mmol/L [facility] Comment:Testing performed by : [facility], [address] [place] [phone] Anion gap 7 2 - 15 mmol/L [facility] Comment:Testing performed by : [facility], [address] [place] [phone] BUN 9 8 - 25 mg/dL [facility] Comment:Testing performed by : [facility], [address] [place] [phone] Creatinine 0.96 0.60 - 1.10 mg/dL [facility] Comment:Testing performed by : [facility], [address] [place] [phone] Glucose 111 70 - 199 mg/dL [facility] [...] was last revised 2017. Testing performed by: [facility], [address] [place] [phone] Calcium 10.6(H) 8.5 - 10.3 mg/dL [facility] Comment:Testing performed by : [facility], [address] [place] [phone] Bilirubin, total 0.6 0.1 - 1.2 mg/dL [facility] Comment:Testing performed by : [facility], [address] [place] [phone] Protein, pl 6.7 6.5 - 8.5 g/dL [facility] Comment:Testing performed by : [facility], [address] [place] [phone] Albumin 4.3 3.5 - 5.0 g/dL [facility] Comment:Testing performed by : [facility], [address] [place] [phone] Alk phos 107 40 - 130 Units/L [facility] Comment:Testing performed by : [facility], [address] [place] [phone] ALT 33 7 - 45 Units/L [facility] Comment:Testing performed by : [facility], [address] [place] [phone] AST 42 10 - 45 Units/L [facility] Comment:Testing performed by : [facility], [address] [place] [phone] Blood 08/07/2021 2:12 PM LUMBER MATERIAL HANDLER 08/07/2021 2:15 PM LUMBER MATERIAL HANDLER us Eren Cr MD LAB BLOOD ORDERABLES Final Re sult [facility] [address] [facility] Department of Laboratories [place], [place] [id number] * (ABNORMAL) CBC with auto differential (08/07/2021 2:12 PM LUMBER MATERIAL HANDLER) WBC 4.1 3.8 - 9.8 K/cumm [facility] Comment:Testing performed by : [facility], [address] [place] [phone] Hgb 14.2 12.1 - 15.1 g/dL [facility] Comment:Testing performed by : [facility], [address] [place] [phone] Hct 40.4 36.1 - 44.3 % [facility] Comment:Testing performed by : [facility], [address] [place] [phone] Plt 103(L) 140 - 440 K/cumm [facility] Comment:Testing performed by : [facility], [address] [place] [phone] MPV 8.1 6.8 - 10.4 fL [facility] Comment:Testing performed by : [facility], [address] [place], [place] [phone] RBC 4.60 3.90 - 5.00 M/cumm [facility] Comment:Testing performed by : [facility], [address] [place], [place] [phone] MCV 87.8 80.0 - 97.6 fL [facility] Comment:Testing performed by : [facility], [address] [place] [phone] MCH 30.9 26.7 - 33.7 pg [facility] Comment:Testing performed by : [facility], [address] [place] [phone] MCHC 35.2 32.7 - 35.5 g/dL [facility] Comment:Testing performed by : [facility], [address] [place] [phone] RDW CV 13.5 11.8 - 14.6 % [facility] Comment:Testing performed by : [facility], [address] [place] [phone] NRBC abs 0.00 0.00 - 0.01 K/cumm [facility] Comment:Testing performed by : [facility], [address] [place] [phone] Blood 08/07/2021 2:12 PM LUMBER MATERIAL HANDLER 08/07/2021 2:15 PM LUMBER MATERIAL HANDLER us Eren Cr MD LAB BLOOD ORDERABLES Final Re sult [facility] [address] [facility] Department [place] [address] documented in this encounter Visit Diagnoses Diagnosis Neuro-endocrine carcinoma (HCC)- Primary Other malignant neoplasm of unspecified site documented in this encounter Orders Appointment Requests Count Last Ordered Date Fi rst Ordered Date ONCBCN CLINIC APPOINTMENT REQUEST 1 022 ONCBCN LAB APPOINTMENT 1 08/07/2021 documented in this encounter Care Teams Dosier Operator Relationship Specialty Start Date End Date Julio César Briseno MD PCP - General 10/01/16 Eren Cr MD Referring Physician Medical Oncology 11/25/18 Yohana Bowen MD Radiation Oncologist Radiation Oncology 11/25/18 Sabrina Willard NP [address] [place] [address] Nurse Practitioner Medical Oncology 08/17/20 11/26/21 documented as of this encounter
--- OUTSIDE RECORDS SUMMARY | 2024-06-25 22:25 | XMS_ITS | Encounter Summary ---
Author Organization [facility] Address [address] [place] [address] Phone Care Team Providers Care Color Making Supervisor Name Role Phone Julio César Briseno MD Primary Care Provider Eren Cr MD Unavailable [phone] Yohana Bowen MD Unavailable Sabrina Willard NP Unavailable [phone] Encounter Details Date Type Department Care Team (Late st Contact Info) Description 06/28/2021 Orders Only [facility] Oncology [address] 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
--- OUTSIDE RECORDS SUMMARY | 2024-06-25 22:25 | XMS_ITS | Encounter Summary ---
Author Organization [facility] Address [address] [place] [address] Phone Care Team Providers Care Baker Pie Name Role Phone Julio César Briseno MD Primary Care Provider Eren Cr MD Unavailable Yohana Bowen MD Unavailable Sabrina Willard NP Unavailable [phone] Encounter Details Date Type Department Care Team (Late st Contact Info) Description 07/14/2021 Orders Only [facility] Oncology [address] [facility] Advanced Medicine 7th [place] [address] [place] [address] Elaine Coy Neuroendocrine carcinoma (CMS/HCC) [...] on file 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
--- OUTSIDE RECORDS SUMMARY | 2024-06-25 22:25 | XMS_ITS | Encounter Summary ---
Author Organization [facility] Address [address] [place] [address] Phone Care Team Providers Care Aws Developer Name Role Phone Julio César Briseno MD Primary Care Provider [phone] Eren Cr MD Unavailable [phone] Yohana Bowen MD Unavailable Sabrina Willard NP Unavailable [phone] Reason for Referral * Diagnostic Imaging (Routine) - Closed Specialty Diagnoses / Procedures Referred By Contac t Referred To Contact Diagnoses Neuroendocrine carcinoma (HCC) Procedures XR Humerus Left 2 or More Views Eren Cr MD [address] [place] [address] Phone: tel: fax: [facility] Referral ID Status Reason Start Date Expiration Date Visits Re quested Visits Authorized [id number] Closed 07/04/2021 08/03/2022 1 1 N HOOKER Reason for Visit * Episode Based Medications (Routine) - Closed Specialty Diagnoses / Procedures Referred By Contac t Referred To Contact Diagnoses Neuro-endocrine carcinoma (HCC) Procedures study [id number] phase III cabozantinib Eren Cr MD [address] [facility] [address] [place] [address] Phone: tel: fax: [facility] [address] [facility] Advanced Medicine 7th [place] [address] Phone: tel: Referral ID Status Reason Start Date Expiration Date Visits Re quested Visits Authorized [id number] Closed 06/21/2021 06/26/2024 1 99 Encounter Details Date Type Department Care Team (Late st Contact Info) Description 07/04/2021 1:45 PM CHAIN HOOKER Office Visit [facility] Oncology [address] [place] [address] Eren Cr MD [address] [facility] [address] [place] [address] Neuroendocrine carcinoma (CMS/HCC) (HCC) (Primary Dx); Neuro-endocrine carcinoma (CMS/HCC) [...] on file Legal Sex Female 2:41 PM CHAIN HOOKER Gender Identity Not on file Sexual Orientation Straight 02/19/2021 9: 29 AM CDT Occupation Industry Job Start Date Job End Date retired Not on file Not on file Not on file documented as of this encounter Last Filed Vital Signs Vital Sign Reading Time Taken Comments Blood Pressure 110/60 07/04/2021 2:00 PM CHAIN HOOKER Pulse 82 07/04/2021 2:00 PM CHAIN HOOKER Temperature 36.4 ??C (97.6 ??F) 07/04/2021 2:00 PM CS T Respiratory Rate 16 07/04/2021 2:00 PM CHAIN HOOKER Oxygen Saturation 97% 07/04/2021 2:00 PM CHAIN HOOKER Inhaled Oxygen Concentration - - Weight 79.8 kg (176 lb) 07/04/2021 2:00 PM CHAIN HOOKER Height 158.8 cm (5' 2.5 ) 07/04/2021 2:00 PM CHAIN HOOKER Body Mass Index 31.68 07/04/2021 2:00 PM CHAIN HOOKER documented in this encounter Progress Notes * Eren Cr Jr., MD - 07/04/2021 1:45 PM CST MEDICAL ONCOLOGY OUTPATIENT ROV NOTE La Chung : 1950 DATE OF VISIT: 07/04/21 Oncology History Overview Note TREATMENT HISTORY: 1. [...] time, she also underwent right colectomy in [facility] [place] by Dr. Greyson Reeves. Biopsy revealed [...] vaginal cuff lesion also increased in size. Patient complains of left arm pain and swelling. ALLERGIES: Allergies Allergen Reactions ??? Morphine Blisters ??? Ezetimibe-Simvastatin Muscle pain and Unknown Muscle weakness ??? Ramipril Cough ROS: A complete review of systems was performed and was negative other than those mentioned in the aboveinterval history. All other systems negative. OBJECTIVE: Most Recent Vitals: BP: 110/60 Temp: 36.4 ??C (97.6 ??F) Temp src: Skin Pulse: 82 Resp: 16 SpO2: 97 % Height: 158.8 cm (5' 2.5 ) Weight: 79.8 kg (176 lb) PHYSICAL EXAM: ECOG PS: 1 GEN: Calm, [...] No rashes over exposed skin NEURO: A&Ox4, mixing engineer grossly intact by conversation, moving all extremities well, no focal deficits appreciated PSYCH: Mood euthymic, affect appropriate and congruent, speech clear and goal-directed LABS: All laboratories personally reviewed and discussed with patient during office visit, selected values included below. Lab Results Component Value Date WBC 5.1 07/04/2021 HGB 13.1 07/04/2021 HCT 40.2 07/04/2021 MCV 93.5 07/04/2021 LABPLAT 152 07/04/2021 NEUTROABS 4.0 07/04/2021 CMP: Lab Results Component Value Date/Time SODIUM 140 07/04/2021 01:44 PM POTASSIUM 4.1 07/04/2021 01:44 PM CO2 28 07/04/2021 01:44 PM BUNSER 9 07/04/2021 01:44 PM GLUCOSE 112 07/04/2021 01:44 PM CREATININE 0.91 07/04/2021 01:44 PM CALCIUM 10.3 07/04/2021 01:44 PM CHLORIDE 105 07/04/2021 01:44 PM ALBUMIN 4.3 07/04/2021 01:44 PM AST 22 07/04/2021 01:44 PM ALT 15 07/04/2021 01:44 PM ALKPHOS 86 07/04/2021 01:44 PM BILITOT 0.3 07/04/2021 01:44 PM PROT 7.0 07/04/2021 01:44 PM ANIONGAP 7 07/04/2021 01:44 PM Lab Results Component Value Date MAGNESIUM 1.8 07/04/2021 Lab Results Component Value Date PHOS 2.5 07/04/2021 Lab Results Component Value Date TSH 4.11 07/04/2021 Tumor Marker History Some values may be hidden. Unless noted otherwise, only the newest values recorded on each date aredisplayed. Tumor Markers Latest Ref Range 03/27/21 04/24/21 05/22/21 06/19/21 Chromogranin A <93 ng/mL 980 (A) 1125 (A) 1083 (A) 1630 (A) (A) Abnormal value Comments are available [...] 1. Metastatic neuroendocrine tumor with liver metastases. At this pont, she is being considered the CABINET study and continue with octreotide. Hopefully, she can start CABONET soon 2. Bone pain, Left arm. Will obatin xrays to rule out fracture in the bone lesion Eren Cr MD Medical Oncology N HOOKER documented in this encounter Plan of Treatment Not on file documented as of this encounter Results * XR Humerus Left 2 or More Views (07/04/2021 3:06 PM CHAIN HOOKER) Anatomical Region Laterality Modality Upper Extremities, Upper Arm Left Com puted Radiography 07/04/2021 3:15 PM CHAIN HOOKER Impressions 07/04/2021 3:15 PM CHAIN HOOKER 1. ??Subtle sclerotic metastatic lesion in the mid shaft of the left humerus. No pathologic fracture. Electronically signed by: Petros Viveros M.D. Narrative 07/04/2021 3:15 PM CHAIN HOOKER EXAMINATION: Left humerus 2 or more views HISTORY: ??Metastatic neuroendocrine tumor FINDINGS: 2 views of the left humerus are submitted for interpretation. Comparison is made to PET/CT examination on 02/26/2021. There is no acute fracture. There is a subtle sclerotic lesion in the left humeral mid shaft corresponding to the metastatic lesion on PET/CT examination. There is no acute fracture. Procedure Note Petros Viveros MD - 07/04/2021 EXAMINATION: Left humerus 2 or more views HISTORY: Metastatic neuroendocrine tumor FINDINGS: 2 views of the left humerus are submitted for interpretation. Comparison is made to PET/CT examination on 02/26/2021. There is no acute fracture. There is a subtle sclerotic lesion in the left humeral mid shaft corresponding to the metastatic lesion on PET/CT examination. There is no acute fracture. IMPRESSION: 1. Subtle sclerotic metastatic lesion in the mid shaft of the left humerus. No pathologic fracture. Electronically signed by: Petros Viveros M.D. Eren Cr MD IMG XR PROCEDURES Final Resul t documented in this encounter Visit Diagnoses Diagnosis Neuroendocrine carcinoma (HCC)- Primary Other malignant neoplasm of unspecified site Neuro-endocrine carcinoma (HCC) Other malignant neoplasm of unspecified site Neuroendocrine carcinoma (HCC) Other malignant neoplasm of unspecified site documented in this encounter Orders Appointment Requests Count Last Ordered Date Fi rst Ordered Date ONCBCN CLINIC APPOINTMENT REQUEST 1 021 documented in this encounter Care Teams Aws Developer Relationship Specialty Start Date End Date Julio César Briseno MD PCP - General 10/01/16 Eren Cr MD Referring Physician Medical Oncology 11/25/18 Yohana Bowen MD Radiation Oncologist Radiation Oncology 11/25/18 Sabrina Willard NP [address] [place] [address] Nurse Practitioner Medical Oncology 08/17/20 11/26/21 documented as of this encounter
--- OUTSIDE RECORDS SUMMARY | 2024-06-25 22:25 | XMS_ITS | Encounter Summary ---
Author Organization [facility] Healthcare Address [address] [place] [address] Care Team Providers Care Founder And Chief Technical Officer Name Role Phone Julio César Briseno MD Primary Care Provider [phone] Eren Cr MD Unavailable [phone] Yohana Bowen MD Unavailable Sabrina Willard NP Unavailable [phone] Reason for Referral * Diagnostic Imaging (Routine) - Closed Specialty Diagnoses / Procedures Referred By Contac t Referred To Contact Diagnoses Neuroendocrine carcinoma (HCC) Procedures XR Humerus Left 2 or More Views Eren Cr MD [address] [address] [place] [address] Phone: tel: fax: [facility] Referral ID Status Reason Start Date Expiration Date Visits Re quested Visits Authorized [id number] Closed 07/04/2021 08/03/2022 1 1 GER FORENSIC Reason for Visit * Diagnostic Imaging (Routine) - Closed Specialty Diagnoses / Procedures [facility] Referred To Contact Diagnoses Neuroendocrine carcinoma (HCC) Procedures XR Humerus Left 2 or More Views Eren Cr MD [address] [facility] [address]-[facility] [address] [place] [address] Phone: tel: fax: [facility] Referral ID Status Reason Start Date Expiration Date Visits Re quested Visits Authorized [id number] Closed 07/04/2021 08/03/2022 1 1 Encounter Details Date Type Department Care Team (Latest Contact Info) Description 07/04/2021 2:55 PM MANAGER FORENSIC - 07/04/2021 11:59 PM MANAGER FORENSIC Hospital Encounter [facility] Radiology at [facility] [address] [place] [address] Eren Cr MD [address] [facility] [address] [place] [address] Neuroendocrine carcinoma (CMS/HCC) (HCC) Discharge Disposition: Discharge [...] file Legal Sex Female 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 FORENSIC Gender Identity Not on file Sexual Orientation [...] capsuleIndications :supplement Take 1 tablet by mouth submarine element coordinator before breakfast 07/04/2016 4 cholecalciferol (VITAMIN D-3) 2,000 unit capsule Take 1 capsule (2,000 Units total) by mouth daily 30 capsule 2 04/25/2019 3 cholestyramine (QUESTRAN) 4 gram packet Take 1 packet by mouth 3 (three) times a day with meals 270 packet 3 09/04/2019 2 clotrimazole-betam ethasone (LOTRISONE) cream Apply 1 Application topically daily as needed (rash) 4 coenzyme Z34-lhatclf E 100-5 mg-unit capsuleIndications :supplement Take 1 tablet by mouth submarine element coordinator before breakfast 4 denosumab (XGEVA) 120 [...] a day 90 tablet 11 09/01/2020 2 montelukast (SINGULAIR) 10 mg tablet Take [...] Procedure Name Priority Date/Time Associated Diagnosis Comments XR HUMERUS LEFT 2 OR MORE VIEWS Schedule Routine, Read Routine (OP Routine) 07/04/2021 3:06 PM MANAGER FORENSIC Neuroendocrine carcinoma (CMS/HCC) (HCC) documented in this encounter Results * XR Humerus Left 2 or More Views (07/04/2021 3:06 PM MANAGER FORENSIC) Anatomical Region Laterality Modality Upper Extremities, Upper Arm Left Com puted Radiography 07/04/2021 3:15 PM MANAGER FORENSIC Impressions 07/04/2021 3:15 PM MANAGER FORENSIC 1. ??Subtle sclerotic metastatic lesion in the mid shaft of the left humerus. No pathologic fracture. Electronically signed by: Petros Viveros M.D. Narrative 07/04/2021 3:15 PM MANAGER FORENSIC EXAMINATION: Left humerus 2 or more views [...] site documented in this encounter Care Teams Founder And Chief Technical Officer Relationship Specialty Start Date End Date Julio César Briseno MD PCP - General 10/01/16 Eren Cr MD Referring Physician Medical Oncology 11/25/18 Yohana Bowen MD Radiation Oncologist Radiation Oncology 11/25/18 Sabrina Willard NP [address] [place] [address] Nurse Practitioner Medical Oncology 08/17/20 11/26/21 documented as of this encounter
--- OUTSIDE RECORDS SUMMARY | 2024-06-25 22:25 | XMS_ITS | Encounter Summary ---
Author Organization [facility] Address [address] [place] [address] Phone Care Team Providers Care Intensive Care Ambulance Paramedic Name Role Phone Julio César Briseno MD Primary Care Provider Eren Cr MD Unavailable [phone] Yohana Bowen MD Unavailable Sabrina Willard NP Unavailable [phone] Reason for Visit * Reason Onset Date Comments request for IVF 07/13/2021 Encounter Details Date Type Department Care Team (Late st Contact Info) Description 07/13/2021 Telephone [facility] Oncology [address] [facility] Advanced Medicine 7th [place] [address] [place] [address] Eren Cr MD Critical access hospital[address] [facility] [address] [place] [address] request for IVF Social History Tobacco Use [...] on file 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 Theyreport patient having nausea, emesis x 2 yesterday and c/o headache, poor po fluid intake. Patient denies fevers, chills, cough or congestion, no known Covid exposures. Discussed with dr. Cr and benjy to give 1 liter normal saline today and check labs. Patient to follow up on Saturday at scheduled visit. Today patient will receive fluids and [facility] antiemetic [facility] at noon. Appointment time and location sent to patient/daughter. HANGER documented in this encounter Plan of Treatment Not on file documented as of this encounter Visit Diagnoses Not on filedocumented in this encounter Care Teams Intensive Care Ambulance Paramedic Relationship Specialty Start Date End Date Julio César Briseno MD PCP - General 10/01/16 Eren Cr MD Referring Physician Medical Oncology 11/25/18 Yohana Bowen MD Radiation Oncologist Radiation Oncology 11/25/18 Sabrina Willard NP [address] [place] [address] Nurse Practitioner Medical Oncology 08/17/20 11/26/21 documented as of this encounter
--- OUTSIDE RECORDS SUMMARY | 2024-06-25 22:25 | XMS_ITS | Encounter Summary ---
Author Organization [facility] Address [address] [place] [address] Phone Care Team Providers Care Tray Setter Name Role Phone Julio César Briseno MD Primary Care Provider Eren Cr MD Unavailable [phone] Yohana Bowen MD Unavailable Sabrina Willard NP Unavailable [phone] Encounter Details Date Type Department Care Team (Late st Contact Info) Description 08/03/2021 Orders Only [facility] Oncology [address] [facility] Advanced Medicine 7th [place] [address] [place] [address] Eren Cr MD [address] [facility] [address] [place] [address] Neuro-endocrine carcinoma (CMS/HCC) (HCC) (Primary Dx) Social [...] on file 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
--- OUTSIDE RECORDS SUMMARY | 2024-06-25 22:25 | XMS_ITS | Encounter Summary ---
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 Gender Identity Not on file Sexual Orientation Straight 02/19/2021 9: 29 AM CDT Occupation Industry Job Start Date Job End Date retired Not on file Not on file Not on file documented as of this encounter Plan of Treatment Not on file documented as of this encounter Visit Diagnoses Not on filedocumented in this encounter Care Teams Mover Helper Relationship Specialty Start Date End Date Julio César Briseno MD PCP - General 10/01/16 Eren Cr MD Referring Physician Medical Oncology 11/25/18 Yohana Bowen MD Radiation Oncologist Radiation Oncology 11/25/18 Sabrina Willard NP [address] [place] [address] Nurse Practitioner Medical Oncology 08/17/20 11/26/21 documented as of this encounter
--- OUTSIDE RECORDS SUMMARY | 2024-06-25 22:25 | XMS_ITS | Encounter Summary ---
Author Organization [facility] Address [address] [place] [address] Phone Care Team Providers Care Gta Name Role Phone Julio César Briseno MD Primary Care Provider Eren Cr MD Unavailable [phone] Yohana Bowen MD Unavailable Sabrina Willard NP Unavailable [phone] Encounter Details Date Type Department Care Team (Latest Contact Info) Description 07/13/2021 2:30 PM SUPERVISOR NUTRITIONAL YEAST Clinical [facility] Oncology [facility] Advanced Medicine 7th [place] [address] [place] [address] Neuroendocrine carcinoma (CMS/HCC) (HCC) Social History Tobacco [...] file Legal Sex Female 2:41 PM SUPERVISOR NUTRITIONAL YEAST Gender Identity Not on file Sexual Orientation Straight 02/19/2021 9: 29 AM CDT Occupation Industry Job Start Date Job End Date retired Not on file Not on file Not on file documented as of this encounter Plan of Treatment Not on file documented as of this encounter Procedures Procedure Name Priority Date/Time Associated Diagnosis Comments VOLUME AND PERIOD, URINE, 24 HOUR Routine 07/13/2021 8:00 AM SUPERVISOR NUTRITIONAL YEAST Neuroendocrine carcinoma (CMS/HCC) (HCC) 5 HIAA, URINE, 24 HOUR RESULT Routine 07/13/2021 8:00 AM SUPERVISOR NUTRITIONAL YEAST Neuroendocrine carcinoma (CMS/HCC) (HCC) 5 HIAA, URINE, QUANTITATIVE, 24 HOUR Routine 07/13/2021 8:00 AM SUPERVISOR NUTRITIONAL YEAST Neuroendocrine carcinoma (CMS/HCC) (HCC) documented in this encounter Results * (ABNORMAL) 5 HIAA, urine, 24 hour (07/13/2021 8:00 AM SUPERVISOR NUTRITIONAL YEAST) 5-HIAA, 24hr, ur 76.2(H) <=8.6 mg/24H [facility] Comment: In this sample, the excretion of 5HIAA was markedly elevated. Although this finding could be a pharmacological or dietary artifact (several fruits and vegetables contain large amounts of serotonin, the precursor of 5HIAA), it is a probable indicator of the presence of a serotonin-producing tumor. Interpretive Data Testing performed by: [facility], [place] [address]. Urine 07/13/2021 8:00 AM SUPERVISOR NUTRITIONAL YEAST 07/13/2021 3:26 PM SUPERVISOR NUTRITIONAL YEAST us Eren Cr MD LAB URINE ORDERABLES Final Re sult [facility] Department [place] [address] * Volume and period, urine, 24 hour (07/13/2021 8:00 AM SUPERVISOR NUTRITIONAL YEAST) Volume, ur 875 mL [facility] Period, Urine Collection 1,440 min [facility] Urine 07/13/2021 8:00 AM SUPERVISOR NUTRITIONAL YEAST 07/13/2021 3:26 PM SUPERVISOR NUTRITIONAL YEAST us Eren Cr MD LAB URINE ORDERABLES Final Re sult [facility] Department [place] [address] documented in this encounter Visit Diagnoses Diagnosis Neuroendocrine carcinoma (HCC) Other malignant neoplasm of unspecified site documented in this encounter Care Teams Gta Relationship Specialty Start Date End Date Julio César Briseno MD PCP - General 10/01/16 Eren Cr MD Referring Physician Medical Oncology 11/25/18 Yohana Bowen MD Radiation Oncologist Radiation Oncology 11/25/18 Sabrina Willard NP [address] [place] [address] Nurse Practitioner Medical Oncology 08/17/20 11/26/21 documented as of this encounter
--- OUTSIDE RECORDS SUMMARY | 2024-06-25 22:25 | XMS_ITS | Encounter Summary ---
Author Organization [facility] Address [address] [place] [address] Phone Care Team Providers Care Environmental Emergencies Assistant Name Role Phone Julio César Briseno MD Primary Care Provider Eren Cr MD Unavailable [phone] Yohana Bowen MD Unavailable Sabrina Willard NP Unavailable [phone] Encounter Details Date Type Department Care Team (Late st Contact Info) Description 07/18/2021 Orders Only [facility] Oncology [address] [place] [address] Eren Cr MD [address] [address] [place] [address] Neuro-endocrine carcinoma (CMS/HCC) (HCC) (Primary Dx) Social [...] on file 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
--- OUTSIDE RECORDS SUMMARY | 2024-06-25 22:25 | XMS_ITS | Encounter Summary ---
Author Organization [facility] Address [address] [place] [address] Phone Care Team Providers Care Manager Basketball Name Role Phone Julio César Briseno MD Primary Care Provider [phone] Eren Cr MD Unavailable [phone] Yohana Bowen MD Unavailable Sabrina Willard NP Unavailable [phone] Encounter Details Date Type Department Care Team (Late st Contact Info) Description 07/18/2021 Orders Only [facility] Oncology [address] [place] [address] Eren Cr MD [address] [address] [place] [address] Social History Tobacco Use Types Packs/Day Years [...] on file 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 Gender Identity Not on file Sexual Orientation Straight 02/19/2021 9: 29 AM CDT Occupation Industry Job Start Date Job End Date retired Not on file Not on file Not on file documented as of this encounter Plan of Treatment Not on file documented as of this encounter Visit Diagnoses Not on filedocumented in this encounter Care Teams Manager Basketball Relationship Specialty Start Date End Date Julio César Briseno MD PCP - General 10/01/16 Eren Cr MD Referring Physician Medical Oncology 11/25/18 Yohana Bowen MD Radiation Oncologist Radiation Oncology 11/25/18 Sabrina Willard NP [address] [place] [address] Nurse Practitioner Medical Oncology 08/17/20 11/26/21 documented as of this encounter
--- OUTSIDE RECORDS SUMMARY | 2024-06-25 22:25 | XMS_ITS | Encounter Summary ---
Author Organization [facility] Healthcare Address [address] [place] [address] Care Team Providers Care Aerospace Physiological Technician Name Role Phone Julio César Briseno MD Primary Care Provider [phone] Eren Cr MD Unavailable Yohana Bowen MD Unavailable Sabrina Willard NP Unavailable Encounter Details Date Type Department Care Team (Latest Contact Info) Description 08/03/2021 5:41 PM DIGITAL COMPOSER - 08/03/2021 8:30 PM DIGITAL COMPOSER Hospital Encounter [facility] ([facility]) [facility] [place] [address] Eren Cr MD [facility] [address] [place] [address] Dehydration (Primary Dx); Pain Discharge Disposition: Discharge to home or self [...] on file Legal Sex Female 2:41 PM DIGITAL COMPOSER Gender Identity Not on file Sexual Orientation Straight 02/19/2021 9: 29 AM CDT Occupation Industry Job Start Date Job End Date retired Not on file Not on file Not on file documented as of this encounter Last Filed Vital Signs Vital Sign Reading Time Taken Comments Blood Pressure 159/75 08/03/2021 8:25 PM DIGITAL COMPOSER Pulse 59 08/03/2021 8:25 PM DIGITAL COMPOSER Temperature 36.4 ??C (97.6 ??F) 08/03/2021 8:25 PM CS T Respiratory Rate 18 08/03/2021 8:25 PM DIGITAL COMPOSER Oxygen Saturation 95% 08/03/2021 8:25 PM DIGITAL COMPOSER Inhaled Oxygen Concentration - - Weight 78.4 kg (172 lb 12.8 oz) 08/03/2021 5:48 PM DIGITAL COMPOSER Height - - Body Mass Index 31.52 07/17/2021 2:15 PM DIGITAL COMPOSER documented in this encounter Discharge Diagnoses Diagnosis Dehydration - DEHYDRATION Other fatigue - OTHER FATIGUE Other benign neuroendocrine tumors - OTHER BENIGN NEUROENDOCRINE TUMORS 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) - SECONDARY MALIGNANT NEOPLASM OF LIVER AND INTRAHEPATIC BILE DUCT Pure hypercholesterolemia, unspecified - PURE HYPERCHOLESTEROLEMIA, UNSPECIFIED Hyperlipidemia, unspecified - HYPERLIPIDEMIA, UNSPECIFIED Essential (primary) hypertension - ESSENTIAL (PRIMARY) HYPERTENSION Unspecified essential hypertension Gastro-esophageal reflux disease without esophagitis - GASTRO-ESOPHAGEAL REFLUX DISEASE WITHOUT ESOPHAGITIS Unspecified osteoarthritis, unspecified site - UNSPECIFIED OSTEOARTHRITIS, UNSPECIFIED SITE Other skilled nursing (current) drug therapy - OTHER DIRECTOR OCCUPATIONAL (CURRENT) DRUG THERAPY Personal history of irradiation - PERSONAL HISTORY OF IRRADIATION Personal history of irradiation, presenting hazards to health documented in this encounter Discharge Instructions * Patient Instructions* Hola Heredia RN - 08/03/2021 8:17 PM DIGITAL COMPOSER .After 4:30 PM during the week, on weekends and holidays, call [phone] and ask to have the Sample Shoe Inspector And Reworker Physician paged for you. Saturday through Saturday, 8 AM to 4:30 PM, call [phone] [facility] Oncology Physician at [facility] Medicine and ask for a member [...] any non-prescription medicine without your doctor's approval TAL COMPOSER documented in this encounter Medications at Time [...] capsuleIndications :supplement Take 1 tablet by mouth pediatric urologist before breakfast 07/04/2016 4 cholecalciferol (VITAMIN D-3) 2,000 unit capsule Take 1 capsule (2,000 Units total) by mouth daily 30 capsule 2 04/25/2019 3 cholestyramine (QUESTRAN) 4 gram packet Take 1 packet by mouth 3 (three) times a day with meals 270 packet 3 09/04/2019 2 clotrimazole-betam ethasone (LOTRISONE) cream Apply 1 Application topically daily as needed (rash) 4 coenzyme [id number] 100-5 mg-unit capsuleIndications :supplement Take 1 tablet by mouth pediatric urologist before breakfast 4 denosumab (XGEVA) 120 mg/1.7 [...] tablet 11 09/01/2020 2 [id number] cabozantinib/place mariela (/[id number]) 20 mg tabletIndications: cancer study Take 1 tablet (20 mg total) by mouth nightly Take on an empty stomach (no food for 2 hours before and 1 hour after each dose).?? Avoid Jas's Wort, grapefruit products and [place] oranges while on treatment. placed on hold 09/26/22 for covid 01/29/2022 4 montelukast (SINGULAIR) 10 mg tablet Take [...] documented in this encounter Progress Notes * Portia Maxwell, CECILIA - 08/03/2021 6:17 PM CST Oncology Progress Note [facility] Chief Complaint: fatigue, weakess, dizziness Subjective HPI: La Chung is a 70 y.o. female patient of Dr. Cr diagnosed with metastatic neuroendocrine tumorwith liver metastases (10/24/2015) currently on study [id number] - [facility] - GI - [id number] - Step 1 and Step 2 Crossover - Cabozantinib/Placebo OR Open label Cabozantinib. 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 She presented to the [facility] with her after 3 days of fatigue, weakness, and dizziness. She reports occasional headache, dry mouth, shortness of breath on exertion, and back ache. She denies fevers, nausea, chest pain, cough, burning with urination. She received the Covid 19 vaccinations and booster, but has yet to receive her annual flu vaccine. Her oncology history is noted below. 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) Active Treatment & Therapy Plans for La Chung Oncology Chemotherapy Treatment: Octreotide 28 Day Cycles - Carcinoid Current day: Day 1, Cycle 42 (Started on 07/17/2021; Originally planned for 07/17/2021) Following planned day: Day 1, Cycle 43 (Planned for 08/14/2021) Oncology Treatment (2): [id number] - [facility] - GI - [id number] - Step 1 and Step 2 Crossover - Cabozantinib/Placebo OR Open label Cabozantinib Current day: Day 15, Cycle 1 (Planned for 08/07/2021) Following planned day: Day 1, Cycle 2 (Planned for 08/21/2021) Oncology Supportive Care: DENOSUMAB (XGEVA) INJECTION & HYDRATION THERAPY PLAN Current treatment: Treatment 20 (Started on 07/17/2021; Originally planned for 07/17/2021) Following planned treatment: Treatment 21 (Planned for 08/03/2021) Past Medical History: Diagnosis Date ??? Arthritis [...] ??? JOINT REPLACEMENT Left 2014 ? ? ND REMOVAL OF TONSILS,<12 Y/O Tonsillectomy - (Added by TW Conv) ??? ND TOTAL ABDOM HYSTERECTOMY Hysterectomy - (Added by TW Conv) Allergies Allergen Reactions ??? Morphine Blisters ??? Ezetimibe-Simvastatin Muscle pain and Unknown Muscle weakness ??? Ramipril Cough Medications Prior to Admission Medication Sig Dispense Refill Last Dose ??? albuterol HFA (PROVENTIL HFA,VENTOLIN HFA,PROAIR HFA) 90 mcg/actuation inhaler INHALE 1 PUFF BYMOUTH EVERY 4 HOURS (Patient not taking: Reported on 06/19/2021) ??? ascorbic acid, vitamin C, 500 mg capsule Take 1 tablet by mouth pediatric urologist before breakfast ??? cholecalciferol (VITAMIN D-3) 2,000 unit capsule Take 1 capsule (2,000 Units total) by mouth daily (Patient taking differently: Take 2,000 Units by mouth daily ) 30 capsule 2 ??? cholestyramine (QUESTRAN) 4 gram packet Take 1 packet by mouth 3 (three) times a day with [id number] packet 3 ??? clotrimazole-betamethasone (LOTRISONE) cream clotrimazole-betamethasone 1 %- 0.05 % topical cream APPLY EXTERNALLY TO ABDOMEN TWICE DAILY NEEDED ??? coenzyme [id number] (CO Q-10, WITH VIT E,) 100-5 mg-unit capsule Take by mouth early morningbefore breakfast (Patient not taking: Reported on 06/19/2021) ??? denosumab (XGEVA) 120 mg/1.7 mL (70 mg/mL) injection Inject under the skin every 30 (thirty) days ??? denosumab (Xgeva) 120 mg/1.7 mL (70 mg/mL) injection Xgeva ??? diphenoxylate-atropine (LOMOTIL) 2.5-0.025 mg per tablet Take 1 tablet by mouth 4 (four) times a day as needed for diarrhea 90 tablet 0 ??? doxycycline hyclate 100 mg capsule TAKE 1 CAPSULE BY MOUTH EVERY 12 HOURS FOR 10 DAYS (Patient not taking: Reported on 05/22/2021) ??? DULoxetine DR (CYMBALTA) 30 mg capsule Take 1 capsule (30 mg total) by mouth daily (Patient taking differently: Take 30 mg by mouth pediatric urologist before breakfast ) 30 capsule 2 ??? everolimus (AFINITOR) 10 mg tablet 10 mg Pt states she is taking every other day. 02/13/21 RW ??? fluticasone propionate (FLONASE) 50 mcg/actuation nasal spray fluticasone propionate 50 mcg/actuation nasal spray,suspension (Patient not taking: Reported on 06/19/2021) ??? gabapentin (NEURONTIN) 600 mg tablet Take 1 tablet (600 mg total) by mouth 3 (three) times a day (Patient not taking: Reported on 04/24/2021) 90 tablet 11 ??? [facility] cabozantinib/placebo (/[id number]) 20 mg tablet Take 60 mg by mouth daily Take on an empty stomach (no food for 2 hours before and 1 hour after each dose).?? Avoid [place]'sWort, grapefruit products and [place] oranges while on treatment. ??? loperamide HCl (IMODIUM A-D ORAL) ??? montelukast (SINGULAIR) 10 mg tablet Take 10 mg by mouth as needed (Patient not taking: Reported on 06/19/2021) ??? octreotide (SandoSTATIN) 100 mcg/mL injection Sandostatin ??? octreotide (SandoSTATIN) 50 mcg/mL (1 mL) syringe every 30 (thirty) days ??? olmesartan-hydrochlorothiazide (BENICAR HCT) 20-12.5 mg per tablet Take 0.5 tablets by mouth pediatric urologist before breakfast decrease dosage to 0.5 tablet daily 05/14/[address] Briseno at office visit. ??? ondansetron (ZOFRAN) 8 mg tablet Take 1 tablet (8 mg total) by mouth every 8 (eight) hours as needed for nausea or vomiting (Patient not taking: Reported on 06/19/2021) 20 tablet 3 ??? ostomy supplies misc Patient has colostomy and needs Cavilon 3M skin barrier film to manage. 20each 6 ??? oxybutynin (DITROPAN) 5 mg tablet Take 1 tablet (5 mg total) by mouth 2 (two) times a day for 14 days 28 tablet 0 ??? potassium, sodium phosphates (PHOS-NAK) 280-160-250 mg powder in packet Take 1 packet by mouth 4 (four) times a day 120 packet 1 ??? simvastatin (ZOCOR) 20 mg tablet Take 20 mg by mouth nightly ??? triamcinolone (KENALOG) 0.1 % ointment Apply to itchy rash on hands twice daily until improved 454 g 1 Current Facility-Administered Medications: ??? acetaminophen (TYLENOL) tablet 650 mg, 650 mg, oral, Once, Portia Maxwell NP ??? sodium chloride 0.9% bolus 1,000 mL, 1,000 mL, intravenous, Once, Portia Maxwell NP Facility-Administered Medications Ordered in Other Encounters: ??? L-arginine 1.25%/L-lysine 1.25% infusion 1,000 mL, 1,000 mL, intravenous, Continuous, Meagan Amaya MD Family History Problem Relation Age [...] Types: 1 Shots of liquor per week Review of Systems: Review of Systems Constitutional: Positive for fatigue. Respiratory: Positive for shortness of breath. Musculoskeletal: Positive for back pain. Neurological: Positive for light-headedness and headaches. All other systems reviewed and are negative. Objective Vitals: Vitals: 08/03/21 1748 08/03/212024 BP: 156/79 159/75 BP Location: Right arm Patient Position: Sitting Pulse: 73 59 Resp: 18 18 Temp: 36.4 ??C (97.6 ??F) 36.4 ??C (97.6 ??F) TempSrc: Oral SpO2: 95% 95% Weight: 78.4 kg (172 lb 12.8 oz) Physical Exam: Physical Exam Vitals reviewed. Constitutional: Appearance: She is well-developed. HENT: Head: Normocephalic. Right Ear: Decreased hearing noted. Left Ear: Decreased hearing noted. Nose: Nose normal. Mouth/Throat: Mouth: Mucous membranes are dry. Pharynx: Oropharynx is clear. Uvula midline. Eyes: Conjunctiva/sclera: Conjunctivae normal. Neck: Trachea: Trachea normal. Cardiovascular: Rate and Rhythm: Normal rate and regular rhythm. Pulses: Normal pulses. Heart sounds: Normal heart sounds. Pulmonary: Effort: Pulmonary effort is normal. Breath sounds: Normal breath sounds. Abdominal: General: Bowel sounds are normal. Palpations: Abdomen is soft. Comments: Ostomy in LLQ. Genitourinary: Comments: deferred Musculoskeletal: General: Normal range of motion. Cervical back: Normal range of motion and neck supple. Right lower leg: No edema. Left lower leg: No edema. Skin: General: Skin is warm and dry. Capillary Refill: Capillary refill takes less than 2 seconds. Neurological: General: No focal deficit present. Mental Status: She is alert and oriented to person, place, and time. Psychiatric: Mood and Affect: Mood is depressed. Behavior: Behavior is cooperative. Thought Content: Thought content normal. Lab/Radiology/Diagnostic Review: Admission on 08/03/2021 Component Date Value Ref Range Status ??? WBC 08/03/2021 4.5 3.8 - 9.9 K/cumm Final ??? Hgb 08/03/2021 14.4 11.9 - 15.5 g/dL Final ??? Hct 08/03/2021 40.8 35.6 - 45.5 % Final ??? Plt 08/03/2021 127* 150 - 400 K/cumm Final ??? MPV 08/03/2021 10.9 9.1 - 12.3 fL Final ??? RBC 08/03/2021 4.69 3.90 - 5.20 M/cumm Final ??? MCV 08/03/2021 87.0 81.3 - 96.4 fL Final ??? MCH 08/03/2021 30.7 27.1 - 33.3 pg Final ??? MCHC 08/03/2021 35.3 32.3 - 35.7 g/dL Final ??? RDW CV 08/03/2021 13.1 11.1 - 14.9 % Final ??? RDW SD 08/03/2021 40.8 35.7 - 48.1 fL Final ??? NRBC abs 08/03/2021 0.00 0.00 - 0.01 K/cumm Final ??? Sodium 08/03/2021 139 135 - 145 mmol/L Final ??? Potassium, pl 08/03/2021 5.1* 3.3 - 4.9 mmol/L Final Hemolyzed; Potassium value may be falsely elevated by as much as 0.6-1.0 mmol/L. Suggest redraw andreanalysis. ??? Chloride 08/03/2021 106 97 - 110 mmol/L Final ??? CO2 08/03/2021 24 22 - 32 mmol/L Final ??? Anion gap 08/03/2021 9 2 - 15 mmol/L Final ??? BUN 08/03/2021 12 8 - 25 mg/dL Final ??? Creatinine 08/03/2021 1.12* 0.60 - 1.10 mg/dL Final ??? Glucose 08/03/2021 141 70 - 199 mg/dL Final Comment: Interpretive Data Fasting glucose >/= 126 mg/dl is diagnostic for diabetes. Fasting is defined as no caloric intake [...] Current interpretive data was last revised 2017. ??? Calcium 08/03/2021 10.0 8.5 - 10.3 mg/dL Final ??? Bilirubin, total 08/03/2021 0.5 0.1 - 1.2 mg/dL Final ??? Protein, pl 08/03/2021 6.7 6.5 - 8.5 g/dL Final ??? Albumin 08/03/2021 3.8 3.5 - 5.0 g/dL Final ??? Alk phos 08/03/2021 97 40 - 130 Units/L Final ??? ALT 08/03/2021 50* 7 - 45 Units/L Final ??? AST 08/03/2021 75* 10 - 45 Units/L Final Hemolyzed; result may be falsely elevated ??? Lactate 08/03/2021 2.2* 0.7 - 2.0 mmol/L Final ??? Magnesium 08/03/2021 1.8 1.4 - 2.5 mg/dL Final ??? Phosphorus, pl 08/03/2021 2.6 2.3 - 4.5 mg/dL Final ??? Yolande, indirect 08/03/2021 Negative Final ??? ABO Rh 08/03/2021 AB Positive Final ??? Neutrophil abs 08/03/2021 3.3 1.7 - 6.5 K/cumm Final ??? Imm gran abs 08/03/2021 0.0 0.0 - 0.1 K/cumm Final ??? Lymphocyte abs 08/03/2021 0.6* 0.8 - 3.3 K/cumm Final ??? Monocyte abs 08/03/2021 0.4 0.2 - 0.8 K/cumm Final ??? Eosinophil abs 08/03/2021 0.1 0.0 - 0.5 K/cumm Final ??? Basophil abs 08/03/2021 0.0 0.0 - 0.1 K/cumm Final ??? Neutrophil pct 08/03/2021 72.6 % Final Comment: Interpretive Data Percent cell count reference ranges are not reported, since discordance with absolute values may lead to misinterpretation of CBC data. Current Interpretive Data was last revised on 2017. ??? Imm gran pct 08/03/2021 0.2 % Final Comment: Interpretive Data Percent cell count reference ranges are not reported, since discordance with absolute values may lead to misinterpretation of CBC data. Current Interpretive Data was last revised on 2017. ??? Lymphocyte pct 08/03/2021 13.6 % Final Comment: Interpretive Data Percent cell count reference ranges are not reported, since discordance with absolute values may lead to misinterpretation of CBC data. Current Interpretive Data was last revised on 2017. ??? Monocyte pct 08/03/2021 9.8 % Final Comment: Interpretive Data Percent cell count reference ranges are not reported, since discordance with absolute values may lead to misinterpretation of CBC data. Current Interpretive Data was last revised on 2017. ??? Eosinophil pct 08/03/2021 3.1 % Final Comment: Interpretive Data Percent cell count reference ranges are not reported, since discordance with absolute values may lead to misinterpretation of CBC data. Current Interpretive Data was last revised on 2017. ??? Basophil pct 08/03/2021 0.7 % Final Comment: Interpretive Data Percent cell count reference ranges are not reported, since discordance with absolute values may lead to misinterpretation of CBC data. Current Interpretive Data was last revised on 2017. ??? eGFR 08/03/2021 52* 90 - 130 mL/min/1.73 m2 Final Comment: Interpretive Data Reference Interval Normal >/= 90 mL/min/1.73m2 Mildly decreased* 60 - 89 mL/min/1.73m2 Mildly to moderately decreased 45 - 59 mL/min/1.73m2 Moderately to severely decreased 30 - 44 mL/min/1.73m2 Severely decreased 15 - 29 mL/min/1.73m2 Kidney Failure < 15 mL/min/1.73m2 *Relative to young adult level Estimated glomerular [...] Current interpretive data was last reviewed 2021. Assessment and Plan: Mrs Chung presented to the [facility] after 3 days of fatigue, weakess, dizziness. She noted that she was recently quilting and her positioning for an extended time caused achy muscles in her lower back. She reports drinking about 24 oz of water a day with small meals. Her appetite has been decreased. 1. Dehydration -- 1.5 L NS -- Lactate 2.2 ? -- Creatinine 1.12 ? -- eGFR 52? -- AST 75, ALT 50 ? 2. Fatigue -- CBC, CMP, Mg, Phos, Lactate, T&S -- H&H WNL 3. Back pain -- No CVA tenderness -- 650 mg acetaminophen 4. Metastatic neuroendocrine tumor with liver metastases. -- Continue management with Dr. Cr -- 07/17/2021 cycle 1 CABINET study. She will resume xgeva. ?? Patient Discussion: Patient feels better after fluids and tylenol and d/c'd in stable condition. V/s on d/c as noted above. Patient's next appointment is 08/07/[address] Portia Maxwell, MSN, COGENERATION OPERATOR, AGACNP-BC, CCRN [facility] TAL COMPOSER documented in this encounter Nursing Notes * Hola Heredia, RN - 08/03/2021 8:30 PM CST Pt arrived to [facility] for fatigue and EMERGING SOLUTIONS EXECUTIVE eval. PIV started-- CMP, CBC, Lactate, and T&S collected. 1.5 L NS bolus initiated and tolerated well. PIV flushed and removed. AVS discussed w/ pt and spouse. Pt discharged by WC accompanied by spouse. TAL COMPOSER documented in this encounter Plan of Treatment Not on file documented as of this encounter Procedures Procedure Name Priority Date/Time Associated Diagnosis Comments LACTATE STAT 08/03/2021 6:27 PM DIGITAL COMPOSER EGFR STAT 08/03/2021 6:27 PM DIGITAL COMPOSER DIFFERENTIAL AUTO STAT 08/03/2021 6:2 7 PM DIGITAL COMPOSER CBC WITH AUTO DIFFERENTIAL STAT 08/03/2021 6:27 PM DIGITAL COMPOSER TYPE AND SCREEN STAT 08/03/2021 6:27 PM DIGITAL COMPOSER PHOSPHORUS STAT 08/03/2021 6:27 PM DIGITAL COMPOSER MAGNESIUM STAT 08/03/2021 6:27 PM DIGITAL COMPOSER COMPREHENSIVE METABOLIC PANEL STAT 08/03/2021 6:27 PM DIGITAL COMPOSER documented in this encounter Results * (ABNORMAL) eGFR (08/03/2021 6:27 PM DIGITAL COMPOSER) eGFR 52(L) 90 - 130 mL/min/1. 73 m2 [facility] Comment: Interpretive Data Reference Interval Normal [...] interpretive data was last reviewed 2021. Blood 08/03/2021 6:27 PM DIGITAL COMPOSER 08/03/2021 6:38 PM DIGITAL COMPOSER us Portia Maxwell EMERGING SOLUTIONS EXECUTIVE LAB BLOOD ORDERABLES Final Res ult [facility] [place] [address] * (ABNORMAL) Differential, auto (08/03/2021 6:27 PM DIGITAL COMPOSER) Neutrophil abs 3.3 1.7 - 6.5 K/cumm [facility] Imm gran abs 0.0 0.0 - 0.1 K/cumm [facility] Lymphocyte abs 0.6(L) 0.8 - 3.3 K/cumm [facility] Monocyte abs 0.4 0.2 - 0.8 K/cumm [facility] Eosinophil abs 0.1 0.0 - 0.5 K/cumm [facility] Basophil abs 0.0 0.0 - 0.1 K/cumm [facility] Neutrophil pct 72.6 % [facility] Comment: Interpretive Data [...] was last revised on 2017. Lymphocyte pct 13.6 % [facility] Comment: Interpretive Data Percent cell count reference ranges are not reported, since discordance with absolute values may lead to misinterpretation of CBC data. Current Interpretive Data was last revised on 2017. Monocyte pct 9.8 % [facility] Comment: Interpretive Data Percent cell count reference ranges are not reported, since discordance with absolute values may lead to misinterpretation of CBC data. Current Interpretive Data was last revised on 2017. Eosinophil pct 3.1 % [facility] Comment: Interpretive Data Percent cell count reference ranges are not reported, since discordance with absolute values may lead to misinterpretation of CBC data. Current Interpretive Data was last revised on 2017. Basophil pct 0.7 % [facility] Comment: Interpretive Data Percent cell count reference ranges are not reported, since discordance with absolute values may lead to misinterpretation of CBC data. Current Interpretive Data was last revised on 2017. Blood 08/03/2021 6:27 PM DIGITAL COMPOSER 08/03/2021 6:45 PM DIGITAL COMPOSER Portia Maxwell EMERGING SOLUTIONS EXECUTIVE LAB BLOOD ORDERABLES Final Res ult [facility] [address] * Type and screen (08/03/2021 6:27 PM DIGITAL COMPOSER) Yolande, indirect Negative [facility] ABO Rh AB Positive [facility] Blood 08/03/2021 6:27 PM DIGITAL COMPOSER 08/03/2021 6:48 PM DIGITAL COMPOSER Narrative [facility] - 08/03/2021 7:36 PM DIGITAL COMPOSER Has the patient had Daratumumab or Isatuximab in the past 6 months?->Unknown Portia S. Hans EMERGING SOLUTIONS EXECUTIVE LAB BLOOD BANK TEST ORDERABLES Final Result [facility] [address] * Phosphorus (08/03/2021 6:27 PM DIGITAL COMPOSER) Phosphorus, pl 2.6 2.3 - 4.5 mg/dL [facility] Blood 08/03/2021 6:27 PM DIGITAL COMPOSER 08/03/2021 6:38 PM DIGITAL COMPOSER Portia SClark Bynumk EMERGING SOLUTIONS EXECUTIVE LAB BLOOD ORDERABLES Final Res ult Performing Organization Address [facility] Co de Phone Number [facility] Department [place] [address] * Magnesium (08/03/2021 6:27 PM DIGITAL COMPOSER) Pathologist [facility] Magnesium 1.8 1.4 - 2.5 mg/dL [facility] Blood 08/03/2021 6:27 PM DIGITAL COMPOSER 08/03/2021 6:38 PM DIGITAL COMPOSER Portia SClark Bynumk EMERGING SOLUTIONS EXECUTIVE LAB BLOOD ORDERABLES Final Res ult Performing Organization Address [facility] Co de Phone Number [facility] [place] [address] * (ABNORMAL) Lactate (08/03/2021 6:27 PM DIGITAL COMPOSER) Pathologist [facility] Lactate 2.2(H) 0.7 - 2.0 mmol/L [facility] Blood 08/03/2021 6:27 PM DIGITAL COMPOSER 08/03/2021 6:38 PM DIGITAL COMPOSER Portia S. Deck EMERGING SOLUTIONS EXECUTIVE LAB BLOOD ORDERABLES Final Res ult Performing Organization Address [facility] Co de Phone Number [facility] [place] [address] * (ABNORMAL) Comprehensive metabolic panel (08/03/2021 6:27 PM DIGITAL COMPOSER) Pathologist [facility] Sodium 139 135 - 145 mmol/L [facility] Potassium, pl 5.1(H) 3.3 - 4.9 mmol/L [facility] Comment:Hemolyzed; Potassium value may be falsely elevated by as much as 0.6-1.0 mmol/L. Suggest redraw and reanalysis. Chloride 106 97 - 110 mmol/L [facility] CO2 24 22 - 32 mmol/L [facility] Anion gap 9 2 - 15 mmol/L [facility] BUN 12 8 - 25 mg/dL [facility] Creatinine 1.12(H) 0.60 - 1.10 mg/dL [facility] Glucose 141 70 - 199 mg/dL [facility] [...] interpretive data was last revised 2017. Calcium 10.0 8.5 - 10.3 mg/dL [facility] Bilirubin, total 0.5 0.1 - 1.2 mg/dL [facility] Protein, pl 6.7 6.5 - 8.5 g/dL [facility] [facility] Albumin 3.8 3.5 - 5.0 g/dL [facility] Alk phos 97 40 - 130 Units/L [facility] ALT 50(H) 7 - 45 Units/L [facility] AST 75(H) 10 - 45 Units/L [facility] Comment:Hemolyzed; result ma y be falsely elevated Blood 08/03/2021 6:27 PM DIGITAL COMPOSER 08/03/2021 6:38 PM DIGITAL COMPOSER us Portia Maxwell EMERGING SOLUTIONS EXECUTIVE LAB BLOOD ORDERABLES Final Res ult [facility] [place] [address] * (ABNORMAL) CBC with auto differential (08/03/2021 6:27 PM DIGITAL COMPOSER) WBC 4.5 3.8 - 9.9 K/cumm [facility] Hgb 14.4 11.9 - 15.5 g/dL [facility] Hct 40.8 35.6 - 45.5 % [facility] Plt 127(L) 150 - 400 K/cumm [facility] MPV 10.9 9.1 - 12.3 fL [facility] RBC 4.69 3.90 - 5.20 M/cumm [facility] MCV 87.0 81.3 - 96.4 fL [facility] MCH 30.7 27.1 - 33.3 pg [facility] MCHC 35.3 32.3 - 35.7 g/dL [facility] RDW CV 13.1 11.1 - 14.9 % [facility] RDW SD 40.8 35.7 - 48.1 fL [facility] NRBC abs 0.00 0.00 - 0.01 K/cumm [facility] Blood 08/03/2021 6:27 PM DIGITAL COMPOSER 08/03/2021 6:45 PM DIGITAL COMPOSER Portia Maxwell EMERGING SOLUTIONS EXECUTIVE LAB BLOOD ORDERABLES Final Res ult [facility] [place] [address] documented in this encounter Visit Diagnoses Diagnosis Dehydration- Primary Pain Generalized pain documented in this encounter Administered Medications Inactive Administered Medications - up to 3 most recent administrations Medication Order MAR Action Action Date Dose Rate Site acetaminophen (TYLENOL) tablet 650 mg 650 mg, oral, Once, On Lydia 08/03/21 at 1845, For 1 doseIndications:Pain Given 08/03/2021 6:24 PM DIGITAL COMPOSER 650 mg sodium chloride 0.9% bolus 1,000 mL 1,000 mL, intravenous, at 500 mL/hr, Administer over 2 Hours, Once, On Lydia 08/03/21 at 1835, For 1 doseIndications:Dehydration New Bag 08/03/2021 6:25 PM DIGITAL COMPOSER 1,000 mL 500 mL/hr sodium chloride 0.9% bolus 500 mL 500 mL, intravenous, at 500 mL/hr, Administer over 1 Hours, Once, On Lyida 08/03/21 at 2015, For 1 doseIndications:Dehydration New Bag 08/03/2021 7:48 PM DIGITAL COMPOSER 500 mL 500 mL/hr documented in this encounter Active and Recently Administered Medications Times are shown in DIGITAL COMPOSER. Scheduled Medication Order 08/01/2021 08/02/2021 08/03/2021 acetaminophen (TYLENOL) tablet 650 mg (COMPLETED) 650 mg, oral, Once, On Lydia 08/03/21 at 1845, For 1 dose 1824 (Given - Provid er: Hola Heredia RN) sodium chloride 0.9% bolus 1,000 mL (COMPLETED) 1,000 mL, intravenous, at 500 mL/hr, Administer over 2 Hours, Once, On Lydia 08/03/21 at 1835, For 1 dose 1825 (New Bag - Prov ider: Hola Heredia RN)1947 (Stopped - Provider: Hola Heredia RN) sodium chloride 0.9% bolus 500 mL (COMPLETED) 500 mL, intravenous, at 500 mL/hr, Administer over 1 Hours, Once, On Lydia 08/03/21 at 2015, For 1 dose 1948 (New Bag - Prov ider: Hola Heredia RN)2030 (Stopped - Provider: Hola Heredia RN) documented in this encounter Care Teams Aerospace Physiological Technician Relationship Specialty Start Date End Date Julio César Briseno MD PCP - General 10/01/16 Eren Cr MD Referring Physician Medical Oncology 11/25/18 Yohana Bowen MD Radiation Oncologist Radiation Oncology 11/25/18 Sabrina Willard EMERGING SOLUTIONS EXECUTIVE [address] [place] [address] Nurse Practitioner Medical Oncology 08/17/20 11/26/21 documented as of this encounter
--- OUTSIDE RECORDS SUMMARY | 2024-06-25 22:25 | XMS_ITS | Encounter Summary ---
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 Advanced Medicine 7th [place] [address] Phone: tel: Referral ID Status Reason Start Date Expiration Date V isits Requested Visits Authorized [id number] Authorized 03/02/2019 10/06/2024 1 60 Encounter Details Date Type Department Care Team (Latest Contact Info) Description 07/13/2021 12:26 PM VP [employer] SKIN - 07/13/2021 3:26 PM VP [employer] Hospital Encounter [facility] Advanced Medicine ([facility] [place] [address] Eren Cr MD [address] [place] [address] [address] [place] [address] Neuroendocrine carcinoma (CMS/HCC) (HCC) (Primary Dx); Bone [...] file Legal Sex Female 2:41 PM VP [employer] Gender Identity Not on file Sexual Orientation Straight 02/19/2021 9: 29 AM CDT Occupation Industry Job Start Date Job End Date retired Not on file Not on file Not on file documented as of this encounter Last Filed Vital Signs Vital Sign Reading Time Taken Comments Blood Pressure 147/61 07/13/2021 2:54 PM [employer] Pulse 66 07/13/2021 2:54 PM [employer] Temperature 36.8 ??C (98.2 ??F) 07/13/2021 2:54 PM CS T Respiratory Rate 18 07/13/2021 2:54 PM [employer] Oxygen Saturation 98% 07/13/2021 2:54 PM [employer] Inhaled Oxygen Concentration - - Weight - - Height - - Body Mass Index - - documented in this encounter Discharge Diagnoses Diagnosis Other malignant neuroendocrine tumors (HCC) - OTHER MALIGNANT NEUROENDOCRINE TUMORS Secondary malignant neoplasm of bone (CMS/HCC) (HCC) - SECONDARY MALIGNANT NEOPLASM OF BONE documented in this encounter Discharge Instructions * Patient Instructions* Denisha Raymundo RN - 07/13/2021 2:43 PM [employer] SKIN .After 4:30 PM during the week, on weekends and holidays, call [phone] and ask to have the Garment Inspector Physician paged for you. Saturday through Saturday, 8 AM to 4:30 PM, call [phone] [facility] Oncology Physician at [facility] and ask for a member [...] any non-prescription medicine without your doctor's approval [employer]ET[employer] SKIN documented in this encounter Medications at Time [...] capsuleIndications :supplement Take 1 tablet by mouth chief physical therapist before breakfast 07/04/2016 4 cholecalciferol (VITAMIN D-3) 2,000 unit capsule Take 1 capsule (2,000 Units total) by mouth daily 30 capsule 2 04/25/2019 3 cholestyramine (QUESTRAN) 4 gram packet Take 1 packet by mouth 3 (three) times a day with meals 270 packet 3 09/04/2019 2 clotrimazole-betam ethasone (LOTRISONE) cream Apply 1 Application topically daily as needed (rash) 4 coenzyme [id number] E 100-5 mg-unit capsuleIndications :supplement Take 1 tablet by mouth chief physical therapist before breakfast 4 denosumab (XGEVA) 120 mg/1.7 [...] Nursing Notes * Denisha Raymundo RN - 07/13/2021 3:25 PM CST Patient received fluid and 8 mg of Zofran. Post Calcium was sent. Patient tolerated treatment well.Discharge instruction was given to patient . Discharged in stable condition. MARKETING SERVICES AND SKIN * Denisha Raymundo RN - 07/13/2021 1:16 PM CST Pt arrived to [facility] for 1 L of NS and labs, accompanied by family. Reviewed todays plan of care with the patient and is agreeable with this plan. Pt is sitting in the chair / bed in comfortable position. MARKETING SERVICES [employer] SKIN documented in this encounter Plan of Treatment Not on file documented as of this encounter Procedures Procedure Name Priority Date/Time Associated Diagnosis Comments CALCIUM LEVEL Routine 07/13/2021 2:52 PM [employer] Neuroendocrine carcinoma (CMS/HCC) (HCC) EGFR Routine 07/13/2021 12:56 PM VP [employer]IN Neuroendocrine carcinoma (CMS/HCC) (HCC) DIFFERENTIAL AUTO Routine 07/13/2021 12: 56 PM VP [employer] SKIN Neuroendocrine carcinoma (CMS/HCC) (HCC) CBC WITH AUTO DIFFERENTIAL Routine 07/13/2021 12:56 PM VP [employer]IN Neuroendocrine carcinoma (CMS/HCC) (HCC) COMPREHENSIVE METABOLIC PANEL Routine 07/13/2021 12:56 PM [employer] Neuroendocrine carcinoma (CMS/HCC) (HCC) documented in this encounter Results * Calcium level (07/13/2021 2:52 PM VP [employer] SKIN) Calcium 9.4 8.5 - 10.3 mg/dL [facility] Blood 07/13/2021 2:52 PM VP [employer] SKIN 07/13/2021 3:57 PM VP [employer]ING SERVICES [employer] SKIN us Eren Cr MD LAB BLOOD ORDERABLES Final Re sult [facility] Department [place] [address] * (ABNORMAL) eGFR (07/13/2021 12:56 PM VP [employer]) eGFR 57(L) 90 - 130 mL/min/1. 73 m2 [facility] Comment: Interpretive Data Reference Interval Normal [...] interpretive data was last reviewed 2021. Blood 07/13/2021 12:5 6 PM [employer] 07/13/2021 1:07 PM VP [employer]IN us Eren Cr MD LAB BLOOD ORDERABLES Final Re sult [facility] Department [place] [address] * (ABNORMAL) Differential, auto (07/13/2021 12:56 PM VP [employer]) Neutrophil abs 3.6 1.7 - 6.5 K/cumm [facility] Imm gran abs 0.0 0.0 - 0.1 K/cumm [facility] Lymphocyte abs 0.5(L) 0.8 - 3.3 K/cumm [facility] Monocyte abs 0.7 0.2 - 0.8 K/cumm [facility] Eosinophil abs 0.1 0.0 - 0.5 K/cumm [facility] Basophil abs 0.0 0.0 - 0.1 K/cumm [facility] Neutrophil pct 74.1 % [facility] Comment: Interpretive Data Percent cell count reference ranges are not reported, since discordance with absolute values may lead to misinterpretation of CBC data. Current Interpretive Data was last revised on 2017. Imm gran pct 0.2 % [facility] Comment: Interpretive Data Percent cell count reference ranges are not reported, since discordance with absolute values may lead to misinterpretation of CBC data. Current Interpretive Data was last revised on 2017. Lymphocyte pct 10.6 % [facility] Comment: Interpretive Data Percent cell count reference ranges are not reported, since discordance with absolute values may lead to misinterpretation of CBC data. Current Interpretive Data was last revised on 2017. Monocyte pct 13.5 % [facility] Comment: Interpretive Data Percent cell count reference ranges are not reported, since discordance with absolute values may lead to misinterpretation of CBC data. Current Interpretive Data was last revised on 2017. Eosinophil pct 1.2 % [facility] Comment: Interpretive Data Percent cell count reference ranges are not reported, since discordance with absolute values may lead to misinterpretation of CBC data. Current Interpretive Data was last revised on 2017. Basophil pct 0.4 % [facility] Comment: Interpretive Data Percent cell count reference ranges are not reported, since discordance with absolute values may lead to misinterpretation of CBC data. Current Interpretive Data was last revised on 2017. Blood 07/13/2021 12:5 6 PM [employer] 07/13/2021 1:07 PM VP [employer] SKIN Eren Cr MD LAB BLOOD ORDERABLES Final Re sult [facility] Department [place] [address] * (ABNORMAL) Comprehensive metabolic panel (07/13/2021 12:56 PM VP [employer] SKIN) Sodium 138 135 - 145 mmol/L [facility] Potassium, pl 4.5 3.3 - 4.9 mmol/L [facility] Comment:Hemolyzed; Potassium value may be falsely elevated by as much as 0.6-1.0 mmol/L. Suggest redraw and reanalysis. Chloride 105 97 - 110 mmol/L [facility] CO2 23 22 - 32 mmol/L [facility] Anion gap 10 2 - 15 mmol/L [facility] BUN 13 8 - 25 mg/dL [facility] Creatinine 1.04 0.60 - 1.10 mg/dL [facility] Glucose 110 70 - 199 mg/dL [facility] Comment: Interpretive Data Fasting glucose >/= [...] interpretive data was last revised 2017. Calcium 10.4(H) 8.5 - 10.3 mg/dL [facility] Bilirubin, total 0.6 0.1 - 1.2 mg/dL [facility] Protein, pl 7.4 6.5 - 8.5 g/dL [facility] Albumin 4.3 3.5 - 5.0 g/dL [facility] Alk phos 89 40 - 130 Units/L [facility] ALT 21 7 - 45 Units/L [facility] AST 38 10 - 45 Units/L [facility] Comment:Hemolyzed; result ma y be falsely elevated Blood 07/13/2021 12:5 6 PM VP [employer] 07/13/2021 1:07 PM VP [employer] us Eren Cr MD LAB BLOOD ORDERABLES Final Re sult Performing Organization Address City/[facility] Co de Phone Number [facility] Department [place] [address] * CBC with auto differential (07/13/2021 12:56 PM VP [employer] SERVICES [employer] SKIN) Pathologist [facility] WBC 4.9 3.8 - 9.9 K/cumm [facility] Hgb 14.2 11.9 - 15.5 g/dL [facility] Hct 42.3 35.6 - 45.5 % [facility] Plt 155 150 - 400 K/cumm [facility] MPV 10.4 9.1 - 12.3 fL [facility] RBC 4.70 3.90 - 5.20 M/cumm [facility] MCV 90.0 81.3 - 96.4 fL [facility] MCH 30.2 27.1 - 33.3 pg [facility] MCHC 33.6 32.3 - 35.7 g/dL [facility] RDW CV 13.5 11.1 - 14.9 % [facility] RDW SD 44.0 35.7 - 48.1 fL [facility] NRBC abs 0.00 0.00 - 0.01 K/cumm [facility] Blood 07/13/2021 12:5 6 PM VP [employer] SKIN 07/13/2021 1:07 PM VP [employer] SERVICES [employer] SKIN Eren Cr MD LAB BLOOD ORDERABLES Final Re sult Performing Organization Address City/[facility]/ZIP Co de Phone Number [facility] Department [place] [address] documented in this encounter Visit Diagnoses Diagnosis [...] Administer over 2 Minutes, Once, On Lydia 07/13/21 at 1320, For 1 doseIndications:Bone metastasis,Neuro-endocrine carcinoma (HCC) Given 07/13/2021 12:57 PM VP [employer] 8 mg sodium chloride 0.9% bolus 1,000 mL 1,000 mL, intravenous, at 500 mL/hr, Administer over 2 Hours, Once, On Lydia 07/13/21 at 1300, For 1 doseIndications:Bone metastasis,Neuro-endocrine carcinoma (HCC) New Bag 07/13/2021 12:57 PM [employer] 1,000 mL 500 mL/hr documented in this encounter Active and Recently Administered Medications Times are shown in [employer]. Scheduled Medication Order 07/11/2021 07/12/2021 07/13/2021 ondansetron (ZOFRAN) injection 8 mg (COMPLETED) 8 mg, intravenous, Administer over 2 Minutes, Once, On Lydia 07/13/21 at 1320, For 1 dose 1257 (Given - Provid er: Denisha Raymundo RN) sodium chloride 0.9% bolus 1,000 mL (COMPLETED) 1,000 mL, intravenous, at 500 mL/hr, Administer over 2 Hours, Once, On Lydia 07/13/21 at 1300, For 1 dose 1257 (New Bag - Prov ider: Denisha Raymundo RN)1454 (Stopped - Provider: Denisha Raymundo RN) documented in this encounter Orders Appointment Requests Count Last Ordered Date Fi rst Ordered Date ONCBCN INFUSION APPT REQUEST 1 07/13/2021 documented in this encounter Care Teams Lpn Cma Relationship Specialty Start Date End Date Julio César Briseno MD PCP - General 10/01/16 Eren Cr MD Referring Physician Medical Oncology 11/25/18 Yohana Bowen MD Radiation Oncologist Radiation Oncology 11/25/18 Sabrina Willard NP [address] [place] [address] Nurse Practitioner Medical Oncology 08/17/20 11/26/21 documented as of this encounter
--- OUTSIDE RECORDS SUMMARY | 2024-06-25 22:25 | XMS_ITS | Encounter Summary ---
Author Organization [facility] Healthcare Address [address] [place] [address] Care Team Providers Care Membership Advisor Name Role Phone Julio César Briseno MD Primary Care Provider [phone] Eren Cr MD Unavailable Yohana Bowen MD Unavailable Sabrina Willard NP Unavailable [phone] Encounter Details Date Type Department Care Team (Latest Contact Info) Description 07/21/2021 Orders Only Oncology Eren Cr MD [address] 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 SERVICES SUPERVISOR Gender Identity Not on file Sexual Orientation Straight 02/19/2021 9: 29 AM CDT Occupation Industry Job Start Date Job End Date retired Not on file Not on file Not on file documented as of this encounter Plan of Treatment Not on file documented as of this encounter Visit Diagnoses Not on filedocumented in this encounter Care Teams Membership Advisor Relationship Specialty Start Date End Date Julio César Briseno MD PCP - General 10/01/16 Eren Cr MD Referring Physician Medical Oncology 11/25/18 Yohana Bowen MD Radiation Oncologist Radiation Oncology 11/25/18 Sabrina Willard NP [address] [place] [address] Nurse Practitioner Medical Oncology 08/17/20 11/26/21 documented as of this encounter
--- OUTSIDE RECORDS SUMMARY | 2024-06-25 22:25 | XMS_ITS | Encounter Summary ---
Author Organization [facility] Address [address] [place] [address] Phone Care Team Providers Care Aboriginal Ceremonial Celebrant Name Role Phone Julio César Briseno MD Primary Care Provider Eren Cr MD Unavailable [phone] Yohana Bowen MD Unavailable Sabrina Willard NP Unavailable [phone] Encounter Details Date Type Department Care Team (Late st Contact Info) Description 07/06/2021 Orders Only [facility] [address] [facility] Advanced Medicine 7th [place] [address] [place] [id number] Eren Cr MD [address] [facility] [address] [place] [address] Neuro-endocrine carcinoma (CMS/HCC) (HCC) (Primary Dx) Social [...] file Legal Sex Female 2:41 PM ORTHOPEDIC NURSE Gender Identity Not on file Sexual Orientation Straight 02/19/2021 9: 29 AM CDT Occupation Industry Job Start Date Job End Date retired Not on file Not on file Not on file documented as of this encounter Plan of Treatment Not on file documented as of this encounter Results * TSH (07/17/2021 1:58 PM ORTHOPEDIC NURSE) Pathologist [facility] Thyroid Stimulating Hormone 3.03 0.30 - 4.20 mcIUnit/mL [facility] Blood 07/17/2021 1:58 PM ORTHOPEDIC NURSE 07/17/2021 2:16 PM ORTHOPEDIC NURSE Eren Cr MD LAB BLOOD ORDERABLES Final Re sult Performing Organization Address [facility] Co de Phone Number [facility] Department [place] [address] * Magnesium (07/17/2021 1:58 PM ORTHOPEDIC NURSE) [facility] Magnesium 1.9 1.4 - 2.5 mg/dL [facility] Comment:Testing performed by : [facility], [address] [place] [id number] Blood 07/17/2021 1:58 PM ORTHOPEDIC NURSE 07/17/2021 2:01 PM ORTHOPEDIC NURSE Eren Cr MD LAB BLOOD ORDERABLES Final Re sult Performing Organization Address [facility]/ZIP Co de Phone Number [facility] [place] [address] * Protein / creatinine ratio, urine, random (07/17/2021 1:35 PM ORTHOPEDIC NURSE) [facility] Protein, ur, quant 35.0 mg/dL [facility] Comment: Interpretive Data No reference range established. Current interpretive data was last revised 2018. Creatinine Ur 359.8 mg/dL [facility] Comment: Interpretive Data No reference range established. Current interpretive data was last revised 2018. Protein/creatinin e ratio 97.3 0.0 - 180.0 mg/g [facility] Urine 07/17/2021 1:35 PM ORTHOPEDIC NURSE 07/17/2021 2:32 PM ORTHOPEDIC NURSE us Eren Cr MD LAB URINE ORDERABLES Final Re sult [facility] Department [place] [address] documented in this encounter Visit Diagnoses Diagnosis Neuro-endocrine carcinoma (HCC)- Primary Other malignant neoplasm of unspecified site documented in this encounter Care Teams Aboriginal Ceremonial Celebrant Relationship Specialty Start Date End Date Julio César Briseno MD PCP - General 10/01/16 Eren Cr MD Referring Physician Medical Oncology 11/25/18 Yohana Bowen MD Radiation Oncologist Radiation Oncology 11/25/18 Sabrina Willard NP [address] [place] [address] Nurse Practitioner Medical Oncology 08/17/20 11/26/21 documented as of this encounter
--- OUTSIDE RECORDS SUMMARY | 2024-06-25 22:25 | XMS_ITS | Encounter Summary ---
Author Organization [facility] Address [address] [place] [address] Phone Care Team Providers Care Brass Sorter Name Role Phone Julio César Briseno MD Primary Care Provider Eren Cr MD Unavailable [phone] Yohana Bowen MD Unavailable Sabrina Willard NP Unavailable [phone] Encounter Details Date Type Department Care Team (Latest Contact Info) Description 07/21/2021 Research Med Pick-Up/CTRU Steeple Jack [facility] Oncology [address] [place] [address] Advanced Medicine 7th [place] [id number] Mell Michel, [facility] [place] [facility] Neuro-endocrine carcinoma (CMS/HCC) (HCC) (Primary Dx) Social [...] on file Legal Sex Female 2:41 PM PRACTICE 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 [facility] cabozantinib/maris cebo (/[id number] [id number]) 20 mg tabletIndication s:cancer study Take 1 tablet (20 mg total) by mouth nightly Take on an empty stomach (no food for 2 hours before and 1 hour after each dose).?? Avoid Jas's Wort, grapefruit products and Carson oranges while on treatment. placed on hold 09/26/22 for covid 01/29/2022 4 added in this encounter Orders Medications Ordered That Brett ht Not Have Been Administered Count Last Ordered Date First Ordered Date [facility] cabozantinib/pl acebo (/[id number]) tablet 60 mg 1 07/21/2021 documented in this encounter Care Teams Brass Sorter Relationship Specialty Start Date End Date Julio César Briseno MD PCP - General 10/01/16 Eren Cr MD Referring Physician Medical Oncology 11/25/18 Yohana Bowen MD Radiation Oncologist Radiation Oncology 11/25/18 Sabrina Willard NP [address] [place] [address] Nurse Practitioner Medical Oncology 08/17/20 11/26/21 documented as of this encounter
--- OUTSIDE RECORDS SUMMARY | 2024-06-25 22:25 | XMS_ITS | Encounter Summary ---
Author Organization [facility] Address [address] [place] [address] Phone Care Team Providers Care Group Controller Name Role Phone Julio César Briseno MD Primary Care Provider [phone] Eren Cr MD Unavailable [phone] Yohana Bowen MD Unavailable Sabrina Willard NP Unavailable [phone] 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) Procedures GA OCTREOTIDE INJECTION, DEPOT Octreotide 28 Day Cycles - Carcinoid Eren Cr MD [address] [facility] [address] [place] [address] Phone: tel: fax: [facility] Cancer [address] [address] Phone: tel: fax: Referral ID Status Reason Start Date Expiration Date V isits Requested Visits Authorized [id number] Authorized 11/28/2017 02/05/2025 1 150 Encounter Details Date Type Department Care Team (Late st Contact Info) Description 07/17/2021 2:00 PM CRAB FISHERMAN Office Visit [facility] Oncology [address] [facility] 7th [place] [address] [place] [address] Joelle Eugene NP [address] [place] [address] Neuroendocrine carcinoma (CMS/HCC) (HCC) (Primary Dx); Bone [...] on file Legal Sex Female 2:41 PM CRAB FISHERMAN Gender Identity Not on file Sexual Orientation Straight 02/19/2021 9: 29 AM CDT Occupation Industry Job Start Date Job End Date retired Not on file Not on file Not on file documented as of this encounter Last Filed Vital Signs Vital Sign Reading Time Taken Comments Blood Pressure 136/76 07/17/2021 2:17 PM CRAB FISHERMAN Pulse 76 07/17/2021 2:17 PM CRAB FISHERMAN Temperature 36.3 ??C (97.3 ??F) 07/17/2021 2:15 PM CS T Respiratory Rate 20 07/17/2021 2:15 PM CRAB FISHERMAN Oxygen Saturation 97% 07/17/2021 2:17 PM CRAB FISHERMAN Inhaled Oxygen Concentration - - Weight 79.6 kg (175 lb 6.4 oz) 07/17/2021 2:15 P M CRAB FISHERMAN Height 157.7 cm (5' 2.09 ) 07/17/2021 2:15 PM CS T Body Mass Index 31.99 07/17/2021 2:15 PM CRAB FISHERMAN documented in this encounter Progress Notes * Joelle Eugene NP - 07/17/2021 2:00 PM CST Images from the original note were not included. MEDICAL ONCOLOGY OUTPATIENT ROV NOTE La Chung : 1950 DATE OF VISIT: 07/14/21 Oncology History Overview Note TREATMENT HISTORY: 1. [...] time, she also [facility] Greyson Reeves. [...] has consented to treatment on the CABINET study. Following our last visit, she had an xray 07/05/21 with a new osseous lesion on the left humerous. She used hydrocodone for pain for a few days and since the pain has not recurred. Last week on 07/13 she had nausea and vomiting and therefore came in for IV fluids. She has since been feeling better. She is anxious about the length of time she will be on the possible placebo while on study and concerned the cancer could progress during this time. She is tearful today. ALLERGIES: Allergies Allergen Reactions ??? Morphine Blisters ??? Ezetimibe-Simvastatin Muscle pain and Unknown Muscle weakness ??? Ramipril Cough ROS: A complete review of systems was performed and was negative other than those mentioned in the aboveinterval history. All other systems negative. OBJECTIVE: Most Recent Vitals: BP: 147/61 Temp: 36.8 ??C (98.2 ??F) Temp src: Oral Pulse: 66 Resp: 18 SpO2: 98 % PHYSICAL EXAM: ECOG PS: 1 GEN: Calm, [...] No rashes over exposed skin NEURO: A&Ox4, radio board operator announcer grossly intact by conversation, moving all extremities [...] aredisplayed. Labs - Hematology Latest Ref Range 05/22/21 06/19/21 07/04/21 07/13/21 WBC 3.8 - 9.9 K/cumm 4.2 6.9 5.1 4.9 Total Hb, POC 11.9 - 15.5 g/dL 12.4 14.4 13.1 14.2 Hct 35.6 - 45.5 % 35.9 (A) 42.1 40.2 42.3 Plt 150 - 400 K/cumm 151 150 152 155 Neutrophil abs 1.7 - 6.5 K/cumm 3.2 5.2 4.0 3.6 Lymphocytes, abs 0.8 - 3.3 K/cumm 0.5 (A) 0.6 (A) 0.6 (A) 0.5 (A) (A) Abnormal value Comments are available for some flowsheets but are not being displayed. Chem/LFT Lab History Some values may be hidden. Unless noted otherwise, only the newest values recorded on each date aredisplayed. Labs-Chem/LFT Latest Ref Range 06/15/21 06/19/21 07/04/21 07/13/21 Sodium 135 - 145 mmol/L 139 140 138 Creatinine 0.60 - 1.10 mg/dL 0.98 0.91 1.04 Bilirubin, total 0.1 - 1.2 mg/dL 0.6 0.3 0.6 AST 10 - 45 Units/L 20 22 38 ALT 7 - 45 Units/L 13 15 21 CrCl- Actual Body Weight (Cockcroft-Gault) 65.5 63.9 70.4 61.6 Some values recorded on this date have been omitted. Comments are available for some flowsheets but are not being displayed. Tumor Marker History Some values may be hidden. Unless noted otherwise, only the newest values recorded on each date aredisplayed. Tumor Markers Latest Ref Range 04/24/21 05/22/21 06/19/21 07/04/21 Chromogranin A <93 ng/mL 1125 (A) 1083 (A) 1630 (A) 1364 (A) (A) Abnormal value Comments are available [...] 1. Metastatic neuroendocrine tumor with liver metastases. Initiate cycle 1 CABINET study. Side effects reviewed by study team. labwork today reveals vitamin D of 26. She will get a liter of IV fluidstoday for calcium of 10.4. She will resume xgeva. Will discuss plan for vitamin D with Dr. Cr and pharmacist. RTC 07/31 per study 2. Bone pain, Left arm. - xray 07/05 with osseous lesion - hydrocodone for pain PRN Joelle Eugene NP Medical Oncology Addendum: Study drug will be available for meat pickler Saturday07/19/21. Cosigned by Eren Cr Jr., MD at 07/18/2021 3:02 PM CRAB FISHERMAN FISHERMAN FISHERMAN documented in this encounter Plan of Treatment [...] 022 documented in this encounter Care Teams Group Controller Relationship Specialty Start Date End Date Julio César Briseno MD PCP - General 10/01/16 Eren Cr MD Referring Physician Medical Oncology 11/25/18 Yohana Bwoen MD Radiation Oncologist Radiation Oncology 11/25/18 Sabrina Willard NP [address] [place] [address] Nurse Practitioner Medical Oncology 08/17/20 11/26/21 documented as of this encounter
--- OUTSIDE RECORDS SUMMARY | 2024-06-25 22:25 | XMS_ITS | Encounter Summary ---
Author Organization [facility] Address [address] [place] [address] Phone Care Team Providers Care Emblem Maker Name Role Phone Julio César Briseno MD Primary Care Provider [phone] Eren Cr MD Unavailable [phone] Yohana Bowen MD Unavailable Sabrina Willard NP Unavailable [phone] Reason for Visit * Episode Based Medications (Routine) - Closed Specialty Diagnoses / Procedures Referred By Contac t Referred To Contact Diagnoses Neuro-endocrine carcinoma (HCC) Procedures study [id number] phase III cabozantinib Eren Cr MD [address] [facility] [address] [place] [address] Phone: tel: fax: [facility] [address] [facility] Advanced Medicine 7th [place] [address] Phone: tel: Referral ID Status Reason Start Date Expiration Date Visits Re quested Visits Authorized [id number] Closed 06/21/2021 06/26/2024 1 99 Encounter Details Date Type Department Care Team (Late st Contact Info) Description 07/04/2021 1:15 PM TRANSPORTATION TECHNICIAN Lab [facility] Oncology [address] [place] [address] Neuro-endocrine carcinoma (CMS/HCC) (HCC); Neuroendocrine carcinoma (CMS/HCC) [...] on file Legal Sex Female 2:41 PM TRANSPORTATION TECHNICIAN Gender Identity Not on file Sexual Orientation Straight 02/19/2021 9: 29 AM CDT Occupation Industry Job Start Date Job End Date retired Not on file Not on file Not on file documented as of this encounter Plan of Treatment Not on file documented as of this encounter Procedures Procedure Name Priority Date/Time Associated Diagnosis Comments PROTEIN / CREATININE RATIO, URINE, RANDOM STAT 07/04/2021 1:45 PM TRANSPORTATION TECHNICIAN Neuro-endocrine carcinoma (CMS/HCC) (HCC) EGFR STAT 07/04/2021 1:44 PM TRANSPORTATION TECHNICIAN Neuro-endocrine carcinoma (CMS/HCC) (HCC) DIFFERENTIAL AUTO STAT 07/04/2021 1:4 4 PM TRANSPORTATION TECHNICIAN Neuro-endocrine carcinoma (CMS/HCC) (HCC) CHROMOGRANIN A Routine 07/04/2021 1:44 PM TRANSPORTATION TECHNICIAN Neuro-endocrine carcinoma (CMS/HCC) (HCC) CBC WITH AUTO DIFFERENTIAL STAT 07/04/2021 1:44 PM TRANSPORTATION TECHNICIAN Neuro-endocrine carcinoma (CMS/HCC) (HCC) APTT Routine 07/04/2021 1:44 PM TRANSPORTATION TECHNICIAN Neuroendocrine carcinoma (CMS/HCC) (HCC) PROTIME-INR Routine 07/04/2021 1:44 PM TRANSPORTATION TECHNICIAN Neuroendocrine carcinoma (CMS/HCC) (HCC) TSH Routine 07/04/2021 1:44 PM TRANSPORTATION TECHNICIAN Neuro-endocrine carcinoma (CMS/HCC) (HCC) PHOSPHORUS STAT 07/04/2021 1:44 PM TRANSPORTATION TECHNICIAN Neuro-endocrine carcinoma (CMS/HCC) (HCC) MAGNESIUM STAT 07/04/2021 1:44 PM TRANSPORTATION TECHNICIAN Neuro-endocrine carcinoma (CMS/HCC) (HCC) COMPREHENSIVE METABOLIC PANEL STAT 07/04/2021 1:44 PM TRANSPORTATION TECHNICIAN Neuro-endocrine carcinoma (CMS/HCC) (HCC) documented in this encounter Results * Protein / creatinine ratio, urine, random (07/04/2021 1:45 PM TRANSPORTATION TECHNICIAN) Pathologist [facility] Protein, ur, quant 14.0 mg/dL [facility] Comment: Interpretive Data No reference range established. Current interpretive data was last revised 2018. Creatinine Ur 168.8 mg/dL [facility] Comment: Interpretive Data No reference range established. Current interpretive data was last revised 2018. Protein/creatinin e ratio 82.9 0.0 - 180.0 mg/g CR [facility] Urine 07/04/2021 1:45 PM TRANSPORTATION TECHNICIAN 07/04/2021 3:39 PM TRANSPORTATION TECHNICIAN us Eren Cr MD LAB URINE ORDERABLES Final Re sult [facility] Department [place] [address] * (ABNORMAL) eGFR (07/04/2021 1:44 PM TRANSPORTATION TECHNICIAN) Pathologist [facility] eGFR 67(L) 90 - 130 mL/min/1. 73 m2 [facility] Comment: Interpretive Data Reference [...] interpretive data was last reviewed 2021. Blood 07/04/2021 1:44 PM TRANSPORTATION TECHNICIAN 07/04/2021 1:46 PM TRANSPORTATION TECHNICIAN us Eren Cr MD LAB BLOOD ORDERABLES Final Re sult [facility] Department [place] [address] * (ABNORMAL) Differential, auto (07/04/2021 1:44 PM TRANSPORTATION TECHNICIAN) Neutrophil abs 4.0 1.7 - 6.5 K/cumm [facility] Imm gran abs 0.0 0.0 - 0.1 K/cumm [facility] Lymphocyte abs 0.6(L) 0.8 - 3.3 K/cumm [facility] Monocyte abs 0.4 0.2 - 0.8 K/cumm [facility] Eosinophil abs 0.1 0.0 - 0.5 K/cumm [facility] Basophil abs 0.0 0.0 - 0.1 K/cumm [facility] Neutrophil pct 78.5 % [facility] Comment: Interpretive Data Percent cell count reference ranges are not reported, since discordance with absolute values may lead to misinterpretation of CBC data. Current Interpretive Data was last revised on 2017. Imm gran pct 0.4 % [facility] Comment: Interpretive Data Percent cell count reference ranges are not reported, since discordance with absolute values may lead to misinterpretation of CBC data. Current Interpretive Data was last revised on 2017. Lymphocyte pct 10.9 % [facility] Comment: Interpretive Data Percent cell count reference ranges are not reported, since discordance with absolute values may lead to misinterpretation of CBC data. Current Interpretive Data was last revised on 2017. Monocyte pct 8.0 % [facility] Comment: Interpretive Data Percent cell count reference ranges are not reported, since discordance with absolute values may lead to misinterpretation of CBC data. Current Interpretive Data was last revised on 2017. Eosinophil pct 1.6 % [facility] Comment: Interpretive Data Percent cell count reference ranges are not reported, since discordance with absolute values may lead to misinterpretation of CBC data. Current Interpretive Data was last revised on 2017. Basophil pct 0.6 % [facility] Comment: Interpretive Data Percent cell count reference ranges are not reported, since discordance with absolute values may lead to misinterpretation of CBC data. Current Interpretive Data was last revised on 2017. Blood 07/04/2021 1:44 PM TRANSPORTATION TECHNICIAN 07/04/2021 1:46 PM TRANSPORTATION TECHNICIAN us Eren Cr MD LAB BLOOD ORDERABLES Final Re sult [facility] Department [place] [address] * Protime-INR (07/04/2021 1:44 PM TRANSPORTATION TECHNICIAN) PT 10.3 9.5 - 13.6 sec [facility] INR 0.9 0.9 - 1.2 [facility] Comment: Interpretive data Oral anticoagulant therapeutic ranges: Venous thromboembolism prophylaxis or treatment: 2.0-3.0 CARDIOLOGY Standard range: 2.0-3.0 High-intensity range: 2.5-3.5 Refer to indication-specific guidelines for appropriate target ranges for prosthetic heart valve replacement. Current interpretive data was last revised on 2019. Blood 07/04/2021 1:44 PM TRANSPORTATION TECHNICIAN 07/04/2021 3:33 PM TRANSPORTATION TECHNICIAN Eren Cr MD LAB BLOOD ORDERABLES Final Re sult Performing Organization Address [facility] de Phone Number [facility] [place] [address] * aPTT (07/04/2021 1:44 PM TRANSPORTATION TECHNICIAN) [facility] aPTT 28 27 - 37 sec [facility] Comment: Interpretive Data Therapeutic heparin range: 60.0 - 94.0 seconds. Based on correlation with therapeutic heparin activity range of 0.3-0.7 Units/mL. Current interpretive data was last revised on 2020. Blood 07/04/2021 1:44 PM TRANSPORTATION TECHNICIAN 07/04/2021 3:33 PM TRANSPORTATION TECHNICIAN Eren Cr MD LAB BLOOD ORDERABLES [facility] Per[facility] Organization Address [facility] de Phone Number [facility] [place] [address] * CBC with auto differential (07/04/2021 1:44 PM TRANSPORTATION TECHNICIAN) [facility] WBC 5.1 3.8 - 9.9 K/cumm [facility] Hgb 13.1 11.9 - 15.5 g/dL [facility] Hct 40.2 35.6 - 45.5 % [facility] Plt 152 150 - 400 K/cumm [facility] MPV 10.2 9.1 - 12.3 fL [facility] RBC 4.30 3.90 - 5.20 M/cumm [facility] MCV 93.5 81.3 - 96.4 fL [facility] MCH 30.5 27.1 - 33.3 pg [facility] MCHC 32.6 32.3 - 35.7 g/dL [facility] RDW CV 13.7 11.1 - 14.9 % [facility] RDW SD 45.8 35.7 - 48.1 fL [facility] NRBC abs 0.00 0.00 - 0.01 K/cumm [facility] Blood 07/04/2021 1:44 PM TRANSPORTATION TECHNICIAN 07/04/2021 1:46 PM TRANSPORTATION TECHNICIAN us Eren Cr MD LAB BLOOD ORDERABLES Final Re sult [facility] Department [place] [address] * Comprehensive metabolic panel (07/04/2021 1:44 PM TRANSPORTATION TECHNICIAN) Sodium 140 135 - 145 mmol/L [facility] Potassium, pl 4.1 3.3 - 4.9 mmol/L [facility] Chloride 105 97 - 110 mmol/L [facility] CO2 28 22 - 32 mmol/L [facility] Anion gap 7 2 - 15 mmol/L [facility] BUN 9 8 - 25 mg/dL [facility] Creatinine 0.91 0.60 - 1.10 mg/dL [facility] Glucose 112 70 - 199 mg/dL [facility] Comment: Interpretive Data Fasting glucose >/= [...] 2017. Calcium 10.3 8.5 - 10.3 mg/dL [facility] Bilirubin, total 0.3 0.1 - 1.2 mg/dL [facility] Protein, pl 7.0 6.5 - 8.5 g/dL [facility] Albumin 4.3 3.5 - 5.0 g/dL [facility] Alk phos 86 40 - 130 Units/L [facility] ALT 15 7 - 45 Units/L [facility] AST 22 10 - 45 Units/L [facility] Blood 07/04/2021 1:44 PM TRANSPORTATION TECHNICIAN 07/04/2021 1:46 PM TRANSPORTATION TECHNICIAN Eren Cr MD LAB BLOOD ORDERABLES Final Re sult Performing Organization Address [facility] [place] [address] * Magnesium (07/04/2021 1:44 PM TRANSPORTATION TECHNICIAN) Pathologist [facility] Magnesium 1.8 1.4 - 2.5 mg/dL [facility] Blood 07/04/2021 1:44 PM TRANSPORTATION TECHNICIAN 07/04/2021 1:46 PM TRANSPORTATION TECHNICIAN Eren Cr MD LAB BLOOD ORDERABLES Final Re sult Performing Organization Address [facility] Co de Phone Number [facility] [place] [address] * Phosphorus (07/04/2021 1:44 PM TRANSPORTATION TECHNICIAN) Pathologist [facility] Phosphorus, pl 2.5 2.3 - 4.5 mg/dL [facility] Blood 07/04/2021 1:44 PM TRANSPORTATION TECHNICIAN 07/04/2021 1:46 PM TRANSPORTATION TECHNICIAN Eren Cr MD LAB BLOOD ORDERABLES Final Re sult Performing Organization Address [facility] Co de Phone Number [facility] [place] [address] * TSH (07/04/2021 1:44 PM TRANSPORTATION TECHNICIAN) Thyroid Stimulating Hormone 4.11 0.30 - 4.20 mcIUnit/mL [facility] Blood 07/04/2021 1:44 PM TRANSPORTATION TECHNICIAN 07/04/2021 3:33 PM TRANSPORTATION TECHNICIAN Eren Cr MD LAB BLOOD ORDERABLES Final Re sult [facility] [place] [address] * (ABNORMAL) Chromogranin A (07/04/2021 1:44 PM TRANSPORTATION TECHNICIAN) Pathologist [facility] Chromogranin A 1364(H) <93 ng/mL [facility] Comment: Impaired renal or hepatic function or treatment with proton pump inhibitors may result in artifactual elevations of Chromogranin A. ADDITIONAL INFORMATION This test was developed and its performance characteristics determined by [facility] in a manner consistent with CLIA requirements. This test has not been cleared or approved by the U.S. Food and Drug Administration. The testing method is a homogeneous time-resolved immunofluorescent assay manufactured by [employer] and performed on the [employer] Kryptor Compact Plus. ? Values obtained with different assay methods or kits may be different and cannot be used interchangeably. ? Test results cannot be interpreted as absolute evidence for the presence or absence of malignant disease. Test Performed by: [id number] [place] [address] Lapel Baster: Immanuel Novak M.D. Ph.D.; CLIA# [id number] Blood 07/04/2021 1:44 PM TRANSPORTATION TECHNICIAN 07/04/2021 4:13 PM TRANSPORTATION TECHNICIAN Eren Cr MD LAB BLOOD ORDERABLES Final Re sult [facility] [place] [address] documented in this encounter Visit Diagnoses Diagnosis Neuro-endocrine carcinoma (HCC) Other malignant neoplasm of unspecified site Neuroendocrine carcinoma (HCC) Other malignant neoplasm of unspecified site documented in this encounter Orders Appointment Requests Count Last Ordered Date Fi rst Ordered Date ONCBCN LAB APPOINTMENT 1 07/04/2021 documented in this encounter Care Teams Emblem Maker Relationship Specialty Start Date End Date Julio César Briseno MD PCP - General 10/01/16 Eren Cr MD Referring Physician Medical Oncology 11/25/18 Yohana Bowen MD Radiation Oncologist Radiation Oncology 11/25/18 Sabrina Willard NP [address] [place] [address] Nurse Practitioner Medical Oncology 08/17/20 11/26/21 documented as of this encounter
--- OUTSIDE RECORDS SUMMARY | 2024-06-25 22:25 | XMS_ITS | Encounter Summary ---
Author Organization [facility] Address [address] [place] [address] Phone Care Team Providers Care Section 8 Property Manager Name Role Phone Julio César Briseno MD Primary Care Provider [phone] Eren Cr MD Unavailable [phone] Yohana Bowen MD Unavailable Sabrina Willard NP Unavailable Encounter Details Date Type Department Care Team (Late st Contact Info) Description 07/17/2021 Orders Only [facility] Oncology [address] [place] [address] Rupali Kohler RN Social History Tobacco Use Types Packs/Day [...] on file Legal Sex Female 2:41 PM RECOVERY ROOM RN Gender Identity Not on file Sexual Orientation Straight 02/19/2021 9: 29 AM CDT Occupation Industry Job Start Date Job End Date retired Not on file Not on file Not on file documented as of this encounter Plan of Treatment Not on file documented as of this encounter Visit Diagnoses Not on filedocumented in this encounter Care Teams Section 8 Property Manager Relationship Specialty Start Date End Date Julio César Briseno MD PCP - General 10/01/16 Eren Cr MD Referring Physician Medical Oncology 11/25/18 Yohana Bowen MD Radiation Oncologist Radiation Oncology 11/25/18 Sabrina Willard NP [address] [place] [address] Nurse Practitioner Medical Oncology 08/17/20 11/26/21 documented as of this encounter
--- OUTSIDE RECORDS SUMMARY | 2024-06-25 22:25 | XMS_ITS | Encounter Summary ---
Author Organization [facility] of [facility] Address [address] [place] [address] Phone Care Team Providers Care C Software Developer Name Role Phone Julio César Briseno MD Primary Care Provider [phone] Eren Cr MD Unavailable Yohana Bowen MD Unavailable Sabrina Willard NP Unavailable [phone] Encounter Details Date Type Department Care Team (Late st Contact Info) Description 07/13/2021 Orders Only [facility] Oncology [address] [facility] Advanced Medicine 7th [place] [address] [place] [address] Eren Cr MD [address] [facility] [address] [place] [address] Neuroendocrine carcinoma (CMS/HCC) (HCC) (Primary Dx) Social [...] on file Legal Sex Female 2:41 PM FEATHER DUSTER WINDER Gender Identity Not on file Sexual Orientation Straight 02/19/2021 9: 29 AM CDT Occupation Industry Job Start Date Job End Date retired Not on file Not on file Not on file documented as of this encounter Plan of Treatment Not on file documented as of this encounter Results * Calcium level (07/13/2021 2:52 PM FEATHER DUSTER WINDER) Calcium 9.4 8.5 - 10.3 mg/dL [facility] Blood 07/13/2021 2:52 PM FEATHER DUSTER WINDER 07/13/2021 3:57 PM FEATHER DUSTER WINDER us Eren Cr MD LAB BLOOD ORDERABLES Final Re sult [facility] Department of Laboratories [place], [place] [id number] documented in this encounter Visit Diagnoses Diagnosis Neuroendocrine carcinoma (HCC)- Primary Other malignant neoplasm of unspecified site documented in this encounter Care Teams C Software Developer Relationship Specialty Start Date End Date Julio César Briseno MD PCP - General 10/01/16 Eren Cr MD Referring Physician Medical Oncology 11/25/18 Yohana Bowen MD Radiation Oncologist Radiation Oncology 11/25/18 Sabrina Willard NP [address] [place] [address] Nurse Practitioner Medical Oncology 08/17/20 11/26/21 documented as of this encounter
--- OUTSIDE RECORDS SUMMARY | 2024-06-25 22:25 | XMS_ITS | Encounter Summary ---
Author Organization [facility] of [facility] Address [address] [place] [address] Phone Care Team Providers Care Apartment Groundskeeper Name Role Phone Julio César Briseno MD Primary Care Provider [phone] Eren Cr MD Unavailable Yohana Bowen MD Unavailable Sabrina Willard NP Unavailable Encounter Details Date Type Department Care Team (Late st Contact Info) Description 06/22/2021 Orders Only [facility] Oncology [address] [facility] Advanced Medicine 7th [place] [address] [place] [address] Eren Cr MD [address] [facility] [address] [place] [address] Neuroendocrine carcinoma (CMS/HCC) (HCC) (Primary Dx) Social [...] file Legal Sex Female 2:41 PM PROGRAM ASSOCIATE Gender Identity Not on file Sexual [...] site documented in this encounter Care Teams Apartment Groundskeeper Relationship Specialty Start Date End Date Julio César Briseno MD PCP - General 10/01/16 Eren Cr MD Referring Physician Medical Oncology 11/25/18 Yohana Bowen MD Radiation Oncologist Radiation Oncology 11/25/18 Sabrina Willard NP [address] [place] [address] Nurse Practitioner Medical Oncology 08/17/20 11/26/21 documented as of this encounter
--- OUTSIDE RECORDS SUMMARY | 2024-06-25 22:25 | XMS_ITS | Encounter Summary ---
Author Organization [facility] of [facility] Address [address] [place] [address] Phone Care Team Providers Care Physician Practice Manager Name Role Phone Julio César Briseno MD Primary Care Provider [phone] Eren Cr MD Unavailable [phone] Yohana Bowen MD Unavailable Sabrina Willard NP Unavailable [phone] Reason for Visit * Reason Comments Injections sandostatin * Episode Based Medications (Routine) - Authorized Specialty Diagnoses / Procedures Referred By Contac t Referred To Contact Oncology Diagnoses 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) Procedures MD OCTREOTIDE INJECTION, DEPOT Octreotide 28 Day Cycles - Carcinoid Eren Cr MD [address] [facility] [address] [place] [address] Phone: tel: fax: [address] [address] Phone: tel: fax: Referral ID Status Reason Start Date Expiration Date V isits Requested Visits Authorized [id number] Authorized 11/28/2017 02/05/2025 1 150 Encounter Details Date Type Department Care Team (Late st Contact Info) Description 07/17/2021 2:45 PM SAW EDGE FUSER CIRCULAR Infusion [facility] Oncology [address] [facility] 7th [place] [address] Neuroendocrine carcinoma (CMS/HCC) (HCC) (Primary Dx); Malignant [...] on file Legal Sex Female 2:41 PM SAW EDGE FUSER CIRCULAR Gender Identity Not on file Sexual Orientation Straight 02/19/2021 9: 29 AM CDT Occupation Industry Job Start Date Job End Date retired Not on file Not on file Not on file documented as of this encounter Nursing Notes * Lisseth Parker, [place] - 07/17/2021 2:45 PM CST Oncology Nursing Note [facility] ONCOL[facility] La Chung is a 70 y.o. female who presents for the following injection: sandostatin and xgeva Nursing Assessment Nursing Assessment Appetite:: Fair Diarrhea:: No Constipation:: No Last BM Date: 07/17/21 Existing Patients: Any falls since your last visit? : No New Patients: Any falls since your last visit? : N/A Fatigue:: Occassional Mouth Sores:: No Nausea/Vomiting:: Yes Pain:: No Peripheral Neuropathy: : No Pt states has potential to be ? : N/A Shortness of Breath?: No Lungs auscultated PRN:: No Pt is on oxygen? : No Skin Condition/Temp: Warm,Dry Oral Mucosa Grade: Normal (0) Abdomen: Soft Swelling:: No Additional Notes: BP: 136/76 Temp: 36.3 ??C (97.3 ??F) Temp src: Transdermal (forehead) Pulse: 76 Resp: 20 SpO2: 97 % Height: 157.7 cm (5' 2.09 ) Weight: 79.6 kg (175 lb 6.4 oz) Patient: met treatment parameters La Chung tolerated injection well Additional Notes: Discharge Plan Discharge instructions given to patient. Discharge Mode: Ambulatory Accompanied by: Self Discharged To: Home EDGE FUSER CIRCULAR documented in this encounter Plan of Treatment [...] 120 mg 120 mg, subcutaneous, Once, On Sat07/17/21 at 1615, For 1 dose, Calcium level should be greater than 8 mg/dl Administer injection in upper arm, abdomen or upper thigh Refrigerate. Allow to stand 15 to 30 mins prior to useIndications:Bone metastasis,Neuro-endocrine carcinoma (HCC) Given 07/17/2021 4:16 PM SAW EDGE FUSER CIRCULAR 120 mg Right Lower Abdomen octreotide LAR (SandoSTATIN LAR) extended release intramuscular injection 30 mg 30 mg, intramuscular, Once, On Sat07/17/21 at 1600, For 1 dose, Refrigerate. For IM intragluteal administration only- alternate gluteal sites. Shake.Indications:Malignan t neoplasm metastatic to liver (HCC),Neuroendocrine carcinoma (HCC) Given 07/17/2021 4:21 PM SAW EDGE FUSER CIRCULAR 30 mg Left Dorsogluteal/Butto ck documented in this encounter Orders Medications Ordered That Brett ht Not Have Been Administered Count Last Ordered Date First Ordered Date INV-[id number] cabozantinib/pl acebo (08-122/[id number]) tablet 60 mg 1 07/17/2021 Nursing Count Last Ordered Date First Orde red Date ONCBCN NURSING COMMUNICATION [id number] 1 0 07/17/2021 PHYSICIAN COMMUNICATION ORDER 1 07/17/2021 Appointment Requests Count Last Ordered Date Fi rst Ordered Date ONCBCN INJECTION APPOINTMENT REQUEST 1 07/08 documented in this encounter Care Teams Physician Practice Manager Relationship Specialty Start Date End Date Julio César Briseno MD PCP - General 10/01/16 Eren Cr MD Referring Physician Medical Oncology 11/25/18 Yohana Bowen MD Radiation Oncologist Radiation Oncology 11/25/18 Sabrina Willard NP [address] [place] [address] Nurse Practitioner Medical Oncology 08/17/20 11/26/21 documented as of this encounter
--- OUTSIDE RECORDS SUMMARY | 2024-06-25 22:25 | XMS_ITS | Encounter Summary ---
Author Organization [facility] Address [address] [place] [address] Phone Care Team Providers Care Cerner Analyst Name Role Phone Julio César Briseno MD Primary Care Provider Eren Cr MD Unavailable Yohana Bowen MD Unavailable Sabrina Willard NP Unavailable Encounter Details Date Type Department Care Team (Late st Contact Info) Description 07/14/2021 Orders Only [facility] Oncology [address] [facility] Advanced Medicine 7th [place] [address] [place] [address] Eren Cr MD [address] [facility] [address] [place] [address] Social History Tobacco Use Types Packs/Day Years [...] on file 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 Gender Identity Not on file Sexual Orientation Straight 02/19/2021 9: 29 AM CDT Occupation Industry Job Start Date Job End Date retired Not on file Not on file Not on file documented as of this encounter Plan of Treatment Not on file documented as of this encounter Visit Diagnoses Not on filedocumented in this encounter Care Teams Cerner Analyst Relationship Specialty Start Date End Date Julio César Briseno MD PCP - General 10/01/16 Eren Cr MD Referring Physician Medical Oncology 11/25/18 Yohana Bowen MD Radiation Oncologist Radiation Oncology 11/25/18 Sabrina Willard NP [address] [place] [address] Nurse Practitioner Medical Oncology 08/17/20 11/26/21 documented as of this encounter
--- OUTSIDE RECORDS SUMMARY | 2024-06-25 22:25 | XMS_ITS | Encounter Summary ---
Author Organization [facility] Address [address] [place] [address] Phone Care Team Providers Care Winter Intern Name Role Phone Julio César Briseno MD Primary Care Provider [phone] Eren Cr MD Unavailable Yohana Bowen MD Unavailable Sabrina Willard NP Unavailable Encounter Details Date Type Department Care Team (Late st Contact Info) Description 06/22/2021 Orders Only 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
--- OUTSIDE RECORDS SUMMARY | 2024-06-25 22:25 | XMS_ITS | Encounter Summary ---
Author Organization [facility] Address [address] [place] [address] Phone Care Team Providers Care Building Architectural Designer Name Role Phone Julio César Briseno MD Primary Care Provider [phone] Eren Cr MD Unavailable Yohana Bowen MD Unavailable Sabrina Willard NP Unavailable Encounter Details Date Type Department Care Team (Late st Contact Info) Description 07/13/2021 Orders Only [facility] Oncology [address] [facility] Advanced Medicine 7th [place] [address] [place] [address] Eren Cr MD [address] [facility] [address] [place] [address] Social History Tobacco Use Types Packs/Day Years [...] on file 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 Gender Identity Not on file Sexual Orientation Straight 02/19/2021 9: 29 AM CDT Occupation Industry Job Start Date Job End Date retired Not on file Not on file Not on file documented as of this encounter Plan of Treatment Not on file documented as of this encounter Visit Diagnoses Not on filedocumented in this encounter Care Teams Building Architectural Designer Relationship Specialty Start Date End Date Julio César Briseno MD PCP - General 10/01/16 Eren Cr MD Referring Physician Medical Oncology 11/25/18 Yohana Bowen MD Radiation Oncologist Radiation Oncology 11/25/18 Sabrina Willard NP [address] [place] [address] Nurse Practitioner Medical Oncology 08/17/20 11/26/21 documented as of this encounter
--- OUTSIDE RECORDS SUMMARY | 2024-06-25 22:25 | XMS_ITS | Encounter Summary ---
Author Organization [facility] of [facility] Address [address] [place] [address] Phone Care Team Providers Care Community Affairs Director Name Role Phone Julio César Briseno MD Primary Care Provider Eren Cr MD Unavailable [phone] Yohana Bowen MD Unavailable Sabrina Willard NP Unavailable [phone] Encounter Details Date Type Department Care Team (Late st Contact Info) Description 07/17/2021 Orders Only [facility] Oncology [address] [place] [address] Rupali Kohler RN Social History Tobacco Use [...] on file Legal 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 Gender Identity Not on file Sexual Orientation Straight 02/19/2021 9: 29 AM CDT Occupation Industry Job Start Date Job End Date retired Not on file Not on file Not on file documented as of this encounter Plan of Treatment Not on file documented as of this encounter Visit Diagnoses Not on filedocumented in this encounter Care Teams Community Affairs Director Relationship Specialty Start Date End Date Julio César Briseno MD PCP - General 10/01/16 Eren Cr MD Referring Physician Medical Oncology 11/25/18 Yohana Bowen MD Radiation Oncologist Radiation Oncology 11/25/18 Sabrina Willard NP [address] [place] [address] Nurse Practitioner Medical Oncology 08/17/20 11/26/21 documented as of this encounter
--- OUTSIDE RECORDS SUMMARY | 2024-06-25 22:25 | XMS_ITS | Encounter Summary ---
Author Organization [facility] Address [address] [place] [address] Phone Care Team Providers Care Catering Staff Member Name Role Phone Julio César Briseno MD Primary Care Provider [phone] Eren Cr MD Unavailable Yohana Bowen MD Unavailable Sabrina Willard NP Unavailable [phone] 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) Procedures CO OCTREOTIDE INJECTION, DEPOT Octreotide 28 Day Cycles - Carcinoid Eren Cr MD [address] [facility] [address] [place] [address] Phone: tel: fax: [facility] Cancer [address] [address] Phone: tel: fax: Referral ID Status Reason Start Date Expiration Date V isits Requested Visits Authorized [id number] Authorized 11/28/2017 02/05/2025 1 150 Encounter Details Date Type Department Care Team (Late st Contact Info) Description 07/17/2021 1:30 PM NEONATAL SPECIALIST Lab [facility] Oncology [address] [facility] 7th [place] [address] [place] [id number] Neuroendocrine carcinoma (CMS/HCC) (HCC); Malignant neoplasm metastatic [...] on file Legal Sex Female 2:41 PM NEONATAL SPECIALIST Gender Identity Not on file Sexual Orientation Straight 02/19/2021 9: 29 AM CDT Occupation Industry Job Start Date Job End Date retired Not on file Not on file Not on file documented as of this encounter Plan of Treatment Not on file documented as of this encounter Procedures Procedure Name Priority Date/Time Associated Diagnosis Comments EGFR STAT 07/17/2021 1:58 PM NEONATAL SPECIALIST 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) DIFFERENTIAL AUTO Routine 07/17/2021 1:5 8 PM NEONATAL SPECIALIST 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) CHROMOGRANIN A Routine 07/17/2021 1:58 PM NEONATAL SPECIALIST 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) CBC WITH AUTO DIFFERENTIAL Routine 07/17/2021 1:58 PM NEONATAL SPECIALIST 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) VITAMIN D 25 HYDROXY Routine 07/17/2021 1:58 PM NEONATAL SPECIALIST 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) TSH Routine 07/17/2021 1:58 PM NEONATAL SPECIALIST Neuro-endocrine carcinoma (CMS/HCC) (HCC) PHOSPHORUS Routine 07/17/2021 1:58 PM NEONATAL SPECIALIST 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) MAGNESIUM STAT 07/17/2021 1:58 PM NEONATAL SPECIALIST Neuro-endocrine carcinoma (CMS/HCC) (HCC) LIPID PANEL Routine 07/17/2021 1:58 PM NEONATAL SPECIALIST 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) COMPREHENSIVE METABOLIC PANEL STAT 07/17/2021 1:58 PM NEONATAL SPECIALIST 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) PROTEIN / CREATININE RATIO, URINE, RANDOM STAT 07/17/2021 1:35 PM NEONATAL SPECIALIST Neuro-endocrine carcinoma (CMS/HCC) (HCC) documented in this encounter Results * (ABNORMAL) eGFR (07/17/2021 1:58 PM NEONATAL SPECIALIST) [facility] eGFR 57(L) 90 - 130 mL/min/1. 73 m2 [facility] Comment: Interpretive Data Reference Interval [...] was last reviewed 2021. Testing performed by: [facility], [address] [place] [phone] Blood 07/17/2021 1:58 PM NEONATAL SPECIALIST 07/17/2021 2:01 PM NEONATAL SPECIALIST us Eren Cr MD LAB BLOOD ORDERABLES Final Re sult [facility] One [facility] [place] [address] * (ABNORMAL) Differential, auto (07/17/2021 1:58 PM NEONATAL SPECIALIST) Neutrophil abs 4.1 1.8 - 6.6 K/cumm [facility] Comment:Testing performed by : [facility], [address] [place] [phone] Lymphocyte abs 0.5(L) 1.2 - 3.3 K/cumm [facility] Comment:Testing performed by : [facility], [address] [place] [phone] Monocyte abs 0.7 0.2 - 1.2 K/cumm [facility] Comment:Testing performed by : [facility], [address] [place] [phone] Eosinophil abs 0.1 0.0 - 0.5 K/cumm [facility] Comment:Testing performed by : [facility], [address] [place] [phone] Basophil abs 0.0 0.0 - 0.2 K/cumm [facility] Comment:Testing performed by : [facility], [address] [place] [phone] Neutrophil pct 75.0 % [facility] Comment: Interpretive Data Percent cell count reference ranges are not reported, since discordance with absolute values may lead to misinterpretation of CBC data. Current Interpretive Data was last revised on 2017. Testing performed by: [facility], [address] [place] [phone] Lymphocyte pct 10.1 % [facility] Comment: Interpretive Data Percent cell count reference ranges are not reported, since discordance with absolute values may lead to misinterpretation of CBC data. Current Interpretive Data was last revised on 2017. Testing performed by: [facility], [address] [place] [phone] Monocyte pct 12.3 % [facility] Comment:Testing performed by : [facility], [address] [place] [phone] Eosinophil pct 2.0 % [facility] Comment:Testing performed by : [facility], [address] [place] [phone] Basophil pct 0.6 % [facility] Comment:Testing performed by : [facility], [address] [place] [phone] Blood 07/17/2021 1:58 PM NEONATAL SPECIALIST 07/17/2021 2:01 PM NEONATAL SPECIALIST Eren Cr MD LAB BLOOD ORDERABLES Final Re sult [facility] One [facility] [place] [address] * Magnesium (07/17/2021 1:58 PM NEONATAL SPECIALIST) Magnesium 1.9 1.4 - 2.5 mg/dL [facility] Comment:Testing performed by : [facility], [address] [place] [phone] Blood 07/17/2021 1:58 PM NEONATAL SPECIALIST 07/17/2021 2:01 PM NEONATAL SPECIALIST Eren Cr MD LAB BLOOD ORDERABLES Final Re sult Performing Organization Address [facility] Co de Phone Number [facility] One [facility] [place] [address] * TSH (07/17/2021 1:58 PM NEONATAL SPECIALIST) Thyroid Stimulating Hormone 3.03 0.30 - 4.20 mcIUnit/mL [facility] Blood 07/17/2021 1:58 PM NEONATAL SPECIALIST 07/17/2021 2:16 PM NEONATAL SPECIALIST Eren Cr MD LAB BLOOD ORDERABLES Final Re sult Performing Organization Address [facility] de Phone Number [facility] One [facility] [place] [address] * (ABNORMAL) Lipid panel (07/17/2021 1:58 PM NEONATAL SPECIALIST) Pathologist [facility] Cholesterol 184 30 - 199 mg/dL [facility] [...] Data was last revised on 2018. Triglycerides 314(H) <=149 mg/dL [facility] Comment: [...] revised on 2018. HDL 55 >=40 mg/dL [facility] Comment: Interpretive Data Ages < [...] 2018. LDL, calculated 66 <=129 mg/dL [facility] Comment: Interpretive Data Ages < [...] was last revised on 2018. Non-HDL Cholesterol 129 mg/dL [facility] Comment: Interpretive [...] last revised on 2018. Chol/HDL ratio 3 [facility] Blood 07/17/2021 1:58 PM NEONATAL SPECIALIST 07/17/2021 2:16 PM NEONATAL SPECIALIST Eren Cr MD LAB BLOOD ORDERABLES Final Re sult Performing Organization Address City/[facility]/ZIP Co de Phone Number [facility] Department of Laboratories [place], [place] [id number] * Phosphorus (07/17/2021 1:58 PM NEONATAL SPECIALIST) Phosphorus, pl 2.7 2.3 - 4.5 mg/dL [facility] Comment:Testing performed by : [facility], [address] [place] [phone] Blood 07/17/2021 1:58 PM NEONATAL SPECIALIST 07/17/2021 2:01 PM NEONATAL SPECIALIST Eren Cr MD LAB BLOOD ORDERABLES Final [facility]ult [facility] [place] [address] * (ABNORMAL) Vitamin D 25 hydroxy (07/17/2021 1:58 PM NEONATAL SPECIALIST) [facility] Vitamin D 25-OH 26(L) 30 - 80 ng/mL [facility] Blood 07/17/2021 1:58 PM NEONATAL SPECIALIST 07/17/2021 2:16 PM NEONATAL SPECIALIST Eren Cr MD LAB BLOOD ORDERABLES Final Re sult [facility] [place] [address] * CBC with auto differential (07/17/2021 1:58 PM NEONATAL SPECIALIST) [facility] WBC 5.4 3.8 - 9.8 K/cumm [facility] Comment:Testing performed by : [facility], [address] [place] [phone] Hgb 14.0 12.1 - 15.1 g/dL [facility] Comment:Testing performed by : [address] [phone] Hct 41.1 36.1 - 44.3 % [facility] Comment:Testing performed by : [address] [phone] Plt 149 140 - 440 K/cumm [facility] Comment:Testing performed by : [address] [phone] MPV 7.8 6.8 - 10.4 fL [facility] Comment:Testing performed by : [address] [phone] RBC 4.56 3.90 - 5.00 M/cumm [facility] Comment:Testing performed by : [address] [phone] MCV 90.2 80.0 - 97.6 fL [facility] Comment:Testing performed by : [address] [phone] MCH 30.8 26.7 - 33.7 pg [facility] Comment:Testing performed by : [facility], [address] [place] [phone] MCHC 34.2 32.7 - 35.5 g/dL [facility] Comment:Testing performed by : [facility], [address] [place] [phone] RDW CV 13.5 11.8 - 14.6 % [facility] Comment:Testing performed by : [facility], [address] [place] [phone] NRBC abs 0.00 0.00 - 0.01 K/cumm [facility] Comment:Testing performed by : [facility], [address] [place] [phone] Blood 07/17/2021 1:58 PM NEONATAL SPECIALIST 07/17/2021 2:01 PM NEONATAL SPECIALIST Eren Cr MD LAB BLOOD ORDERABLES Final Re sult [facility] [place] [address] * (ABNORMAL) Comprehensive metabolic panel (07/17/2021 1:58 PM NEONATAL SPECIALIST) Sodium 141 135 - 145 mmol/L [facility] Comment:Testing performed by : [facility], [address] [place] [phone] Potassium, pl 4.7 3.3 - 4.9 mmol/L [facility] Comment:Testing performed by : [facility], [address] [place] [phone] Chloride 107 97 - 110 mmol/L [facility] Comment:Testing performed by : [facility], [address] [place] [phone] CO2 26 22 - 32 mmol/L [facility] Comment:Testing performed by : [facility], [address] [place] [phone] Anion gap 8 2 - 15 mmol/L [facility] Comment:Testing performed by : [facility], [address] [place] [phone] BUN 14 8 - 25 mg/dL [facility] Comment:Testing performed by : [address] [phone] Creatinine 1.04 0.60 - 1.10 mg/dL [facility] Comment:Testing performed by : [address] [address] Glucose 111 70 - 199 mg/dL [facility] [...] was last revised 2017. Testing performed by: [facility], [address] [place], [place] [phone] Calcium 10.4(H) 8.5 - 10.3 mg/dL [facility] Comment:Testing performed by : [address] [phone] Bilirubin, total 0.5 0.1 - 1.2 mg/dL [facility] Comment:Testing performed by : [address] [address] Protein, pl 7.2 6.5 - 8.5 g/dL [facility] Comment:Testing performed by : [address] [address] Albumin 4.4 3.5 - 5.0 g/dL [facility] Comment:Testing performed by : [address] [address] Alk phos 93 40 - 130 Units/L [facility] Comment:Testing performed by : [address] [phone] ALT 12 7 - 45 Units/L [facility] Comment:Testing performed by : [facility], [address] [facility] [phone] AST 19 10 - 45 Units/L [facility] Comment:Testing performed by : [facility], [address] [facility] [phone] Blood 07/17/2021 1:58 PM NEONATAL SPECIALIST 07/17/2021 2:01 PM NEONATAL SPECIALIST Eren Cr MD LAB BLOOD ORDERABLES Final Re sult [facility] One [facility] [place] [address] * (ABNORMAL) Chromogranin A (07/17/2021 1:58 PM NEONATAL SPECIALIST) Chromogranin A 1727(H) <93 ng/mL [facility] Comment: Impaired renal or hepatic function or treatment with proton pump inhibitors may result in artifactual elevations of Chromogranin A. ADDITIONAL INFORMATION This test was developed and its performance characteristics determined by [facility] in a manner consistent with CLIA requirements. This test has not been cleared or approved by the U.S. Food and Drug Administration. The testing method is a homogeneous time-resolved immunofluorescent assay manufactured by [employer] and performed on the [employer] Kryptor Compact Plus. ? Values obtained with different assay methods or kits may be different and cannot be used interchangeably. ? Test results cannot be interpreted as absolute evidence for the presence or absence of malignant disease. Test Performed by: [place] [address] Tank Car Loader: Immanuel Novak M.D. Ph.D.; CLIA# [id number] Blood 07/17/2021 1:58 PM NEONATAL SPECIALIST 07/17/2021 3:22 PM NEONATAL SPECIALIST Eren Cr MD LAB BLOOD ORDERABLES Final Re sult Performing Organization Address [facility] de Phone Number [facility] [place] [address] * Protein / creatinine ratio, urine, random (07/17/2021 1:35 PM NEONATAL SPECIALIST) Protein, ur, quant 35.0 mg/dL [facility] Comment: Interpretive Data No reference range established. Current interpretive data was last revised 2018. Creatinine Ur 359.8 mg/dL [facility] Comment: Interpretive Data No reference range established. Current interpretive data was last revised 2018. Protein/creatinin e ratio 97.3 0.0 - 180.0 mg/g CR [facility] Urine 07/17/2021 1:35 PM NEONATAL SPECIALIST 07/17/2021 2:32 PM NEONATAL SPECIALIST Eren Cr MD LAB URINE ORDERABLES Final Re sul Performing Organization Address [facility] de Phone Number [facility] [place] [address] documented in this encounter Visit Diagnoses Diagnosis Neuroendocrine carcinoma (HCC) Other malignant neoplasm of unspecified site Malignant neoplasm metastatic to liver (HCC) Neuro-endocrine carcinoma (HCC) Other malignant neoplasm of unspecified site documented in this encounter Orders Lab Orders Without Results Count Last Ordered D ate First Ordered Date ONCBCN STUDY LAB 1 1 07/17/2021 Appointment Requests Count Last Ordered Date Fi rst Ordered Date ONCBCN LAB APPOINTMENT 1 07/17/2021 documented in this encounter Care Teams Catering Staff Member Relationship Specialty Start Date End Date Julio César Briseno MD PCP - General 10/01/16 Eren Cr MD Referring Physician Medical Oncology 11/25/18 Yohana Bowen MD Radiation Oncologist Radiation Oncology 11/25/18 Sabrina Willard NP [address] [place] [address] Nurse Practitioner Medical Oncology 08/17/20 11/26/21 documented as of this encounter
--- OUTSIDE RECORDS SUMMARY | 2024-06-25 22:25 | XMS_ITS | Encounter Summary ---
Author Organization [facility] Address [address] [place] [address] Phone Care Team Providers Care Chemical Process Project Engineer Name Role Phone Julio César Briseno MD Primary Care Provider Eren Cr MD Unavailable Yohana Bowen MD Unavailable Sabrina Willard NP Unavailable Encounter Details Date Type Department Care Team (Late st Contact Info) Description 07/21/2021 Orders Only [facility] Oncology [address] [facility] 7th [place] [address] [place] [phone] Eren Cr MD [address] [facility] [address] [place] [address] Social History Tobacco Use Types Packs/Day Years [...] Legal Sex Female 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 OF RECRUITING Gender Identity Not on file Sexual Orientation Straight 02/19/2021 9: 29 AM CDT Occupation Industry Job Start Date Job End Date retired Not on file Not on file Not on file documented as of this encounter Plan of Treatment Not on file documented as of this encounter Visit Diagnoses Not on filedocumented in this encounter Care Teams Chemical Process Project Engineer Relationship Specialty Start Date End Date Julio César Briseno MD PCP - General 10/01/16 Eren Cr MD Referring Physician Medical Oncology 11/25/18 Yohana Bowen MD Radiation Oncologist Radiation Oncology 11/25/18 Sabrina Willard NP [address] [place] [address] Nurse Practitioner Medical Oncology 08/17/20 11/26/21 documented as of this encounter
--- OUTSIDE RECORDS SUMMARY | 2024-06-25 22:25 | XMS_ITS | Encounter Summary ---
Author Organization [facility] Address [address] [place] [address] Care Team Providers Care Bed Bug Exterminator Name Role Phone Julio César Briseno MD Primary Care Provider [phone] Eren Cr MD Unavailable Yohana Bowen MD Unavailable Sabrina Willard NP Unavailable [phone] Encounter Details Date Type Department Care Team (Latest Contact Info) Description 07/19/2021 Orders Only Oncology Eren Cr MD [address] [facility] [address] [place], [place] [id number] Social History Tobacco Use Types Packs/Day Years [...] file Legal Sex Female 2:41 PM LOGISTICS SUPPLY OFFICER Gender Identity Not on file Sexual Orientation Straight 02/19/2021 9: 29 AM CDT Occupation Industry Job Start Date Job End Date retired Not on file Not on file Not on file documented as of this encounter Plan of Treatment Not on file documented as of this encounter Visit Diagnoses Not on filedocumented in this encounter Care Teams Bed Bug Exterminator Relationship Specialty Start Date End Date Julio César Briseno MD PCP - General 10/01/16 Eren Cr MD Referring Physician Medical Oncology 11/25/18 Yohana Bowen MD Radiation Oncologist Radiation Oncology 11/25/18 Sabrina Willard NP [address] [place] [address] Nurse Practitioner Medical Oncology 08/17/20 11/26/21 documented as of this encounter
--- OUTSIDE RECORDS SUMMARY | 2024-06-25 22:25 | XMS_ITS | Encounter Summary ---
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) Procedures [place] DENOSUMAB INJECTION DENOSUMAB (XGEVA) Eren Cr MD [address] [facility] [address] [place] [address] Phone: tel: fax: [facility] at [facility] [address] [facility] [place] Advanced Medicine 7th [place] [address] Phone: tel: Referral ID Status Reason Start Date Expiration Date V isits Requested Visits Authorized [id number] Authorized 03/02/2019 10/06/2024 1 60 Encounter Details Date Type Department Care Team (Latest Contact Info) Description 07/17/2021 4:42 PM TANK INSPECTOR - 07/17/2021 7:40 PM TANK INSPECTOR Hospital Encounter [facility] Advanced Medicine ([facility]) [address] [place] [address] Eren Cr MD [address] [facility] [address] [place] [address] Bone metastasis (CMS/HCC) (HCC) (Primary Dx); Neuro-endocrine carcinoma (CMS/HCC) (HCC); Nausea Discharge Disposition: Discharge to home or self [...] file Legal Sex Female 2:41 PM TANK INSPECTOR Gender Identity Not on file Sexual Orientation Straight 02/19/2021 9: 29 AM CDT Occupation Industry Job Start Date Job End Date retired Not on file Not on file Not on file documented as of this encounter Last Filed Vital Signs Vital Sign Reading Time Taken Comments Blood Pressure 156/84 07/17/2021 7:23 PM TANK INSPECTOR Pulse 72 07/17/2021 7:23 PM TANK INSPECTOR Temperature 36.6 ??C (97.9 ??F) 07/17/2021 7:23 PM CS T Respiratory Rate 18 07/17/2021 7:23 PM TANK INSPECTOR Oxygen Saturation 98% 07/17/2021 7:23 PM TANK INSPECTOR Inhaled Oxygen Concentration - - Weight 79.7 kg (175 lb 12.8 oz) 07/17/2021 4:51 PM TANK INSPECTOR Height - - Body Mass Index 32.06 07/17/2021 2:15 PM TANK INSPECTOR documented in this encounter Discharge Diagnoses Diagnosis Encounter for antineoplastic immunotherapy - ENCOUNTER FOR ANTINEOPLASTIC IMMUNOTHERAPY Secondary malignant neoplasm of bone (CMS/HCC) (HCC) - SECONDARY MALIGNANT NEOPLASM OF BONE Other malignant neuroendocrine tumors (HCC) - OTHER MALIGNANT NEUROENDOCRINE TUMORS documented in this encounter Discharge Instructions * Patient Instructions* Breanne, Denisha Xiao RN - 07/17/2021 7:25 PM TANK INSPECTOR .After 4:30 PM during the week, on weekends and holidays, call [phone] and ask to have the Executive Meeting Manager Physician paged for you. Saturday through Saturday, 8 AM to 4:30 PM, call [phone] [facility] Oncology Physician at [facility] and ask for a member of your [...] any non-prescription medicine without your doctor's approval INSPECTOR documented in this encounter Medications at Time [...] capsuleIndications :supplement Take 1 tablet by mouth nutrition professor before breakfast 07/04/2016 4 cholecalciferol (VITAMIN D-3) 2,000 unit capsule Take 1 capsule (2,000 Units total) by mouth daily 30 capsule 2 04/25/2019 3 cholestyramine (QUESTRAN) 4 gram packet Take 1 packet by mouth 3 (three) times a day with meals 270 packet 3 09/04/2019 2 clotrimazole-betam ethasone (LOTRISONE) cream Apply 1 Application topically daily as needed (rash) 4 coenzyme [id number] E 100-5 mg-unit capsuleIndications :supplement Take 1 tablet by mouth nutrition professor before breakfast 4 denosumab (XGEVA) 120 mg/1.7 [...] Nursing Notes * Denisha Raymundo RN - 07/17/2021 7:52 PM CST Patient complained of having nausea during fluid infusion. Talked to DESKTOP PUBLISHER Portia. She ordered 8 mg ofZofran IVP. Pt felt better after Zofran. Pt's BP tid764/84 Manual at the end of infusion. Pt deniedheadache and ready to go home. Discharge instruction was given to patient . Discharged in stable condition. INSPECTOR * Denisha Raymundo RN - 07/17/2021 5:32 PM CST Pt arrived to [facility] for 1 L of NS, accompanied by family. Reviewed todays plan of care with the patient and is agreeable with this plan. Pt is sitting in the chair / bed in comfortable position. INSPECTOR documented in this encounter Plan of Treatment Not on file documented as of this encounter Visit Diagnoses Diagnosis Bone metastasis- Primary Secondary malignant neoplasm of bone and bone marrow Neuro-endocrine carcinoma (HCC) Other malignant neoplasm of unspecified site Nausea Nausea alone documented in this encounter Administered Medications Inactive Administered Medications - up to 3 most recent administrations Medication Order MAR Action Action Date Dose Rate Site ondansetron (ZOFRAN) injection 8 mg 8 mg, intravenous, Administer over 2 Minutes, Once, On 07/17/21 at 1910, For 1 doseIndications:Nausea Given 07/17/2021 6:43 PM TANK INSPECTOR 8 mg sodium chloride 0.9% bolus 1,000 mL 1,000 mL, intravenous, at 500 mL/hr, Administer over 2 Hours, Once, On Sat07/17/21 at 1720, For 1 doseIndications:Bone metastasis,Neuro-endocrine carcinoma (HCC) New Bag 07/17/2021 5:11 PM TANK INSPECTOR 1,000 mL 500 mL/hr documented in this encounter Active and Recently Administered Medications Times are shown in TANK INSPECTOR. Scheduled Medication Order 07/15/2021 07/16/2021 07/17/2021 ondansetron (ZOFRAN) injection 8 mg (COMPLETED) 8 mg, intravenous, Administer over 2 Minutes, Once, On Sat07/17/21 at 1910, For 1 dose 1843 (Given - Provid er: Denisha Raymundo RN) sodium chloride 0.9% bolus 1,000 mL (COMPLETED) 1,000 mL, intravenous, at 500 mL/hr, Administer over 2 Hours, Once, On Sat07/17/21 at 1720, For 1 dose 1711 (New Bag - Prov ider: Denisha Raymundo RN)1915 (Stopped - Provider: Denisha Raymundo RN) documented in this encounter Care Teams Water Plant Pump Operator Supervisor Relationship Specialty Start Date End Date Julio César Briseno MD PCP - General 10/01/16 Eren Cr MD Referring Physician Medical Oncology 11/25/18 Yohana Bowen MD Radiation Oncologist Radiation Oncology 11/25/18 Sabrina Willard NP [address] [place] [address] Nurse Practitioner Medical Oncology 08/17/20 11/26/21 documented as of this encounter
--- OUTSIDE RECORDS SUMMARY | 2024-06-25 22:25 | XMS_ITS | Encounter Summary ---
Author Organization [facility] Address [address] [place] [address] Phone Care Team Providers Care Operating Room Technician Name Role Phone Julio César Briseno MD Primary Care Provider [phone] Eren Cr MD Unavailable [phone] Yohana Bowen MD Unavailable Sabrina Willard NP Unavailable [phone] Encounter Details Date Type Department Care Team (Late st Contact Info) Description 07/17/2021 Orders Only [facility] Oncology [address] [facility] Advanced Medicine 7th [place] [address] [place] [address] Eren Cr MD [address] [facility] [address] [place] [address] Social History Tobacco Use Types Packs/Day Years [...] Legal Sex Female 2:41 PM PROFESSOR OF COUNSELING Gender Identity Not on file Sexual Orientation Straight 02/19/2021 9: 29 AM CDT Occupation Industry Job Start Date Job End Date retired Not on file Not on file Not on file documented as of this encounter Plan of Treatment Not on file documented as of this encounter Visit Diagnoses Not on filedocumented in this encounter Care Teams Operating Room Technician Relationship Specialty Start Date End Date Julio César Briseno MD PCP - General 10/01/16 Eren Cr MD Referring Physician Medical Oncology 11/25/18 Yohana Bowen MD Radiation Oncologist Radiation Oncology 11/25/18 Sabrina Willard NP [address] [place] [address] Nurse Practitioner Medical Oncology 08/17/20 11/26/21 documented as of this encounter
--- OUTSIDE RECORDS SUMMARY | 2024-06-25 22:25 | XMS_ITS | Encounter Summary ---
Author Organization [facility] Address [address] [place] [address] Phone Care Team Providers Care Director Private Name Role Phone Julio César Briseno MD Primary Care Provider Eren Cr MD Unavailable Yohana Bowen MD Unavailable Sabrina Willard NP Unavailable [phone] Encounter Details Date Type Department Care Team (Late st Contact Info) Description 07/13/2021 Orders Only [facility] Oncology [address] [facility] Advanced Medicine 7th [place] [address] [place] [address] Eren Cr MD [address] [facility] [address] [place] [address] Neuroendocrine carcinoma (CMS/HCC) (HCC) (Primary Dx) Social [...] file Legal Sex Female 2:41 PM CONSTRUCTION GRIP Gender Identity Not on file Sexual Orientation Straight 02/19/2021 9: 29 AM CDT Occupation Industry Job Start Date Job End Date retired Not on file Not on file Not on file documented as of this encounter Plan of Treatment Not on file documented as of this encounter Results * CBC with auto differential (07/13/2021 12:56 PM CONSTRUCTION GRIP) Pathologist [facility] WBC 4.9 3.8 - 9.9 K/cumm [facility] Hgb 14.2 11.9 - 15.5 g/dL [facility] Hct 42.3 35.6 - 45.5 % [facility] Plt 155 150 - 400 K/cumm [facility] MPV 10.4 9.1 - 12.3 fL [facility] RBC 4.70 3.90 - 5.20 M/cumm [facility] MCV 90.0 81.3 - 96.4 fL [facility] MCH 30.2 27.1 - 33.3 pg [facility] MCHC 33.6 32.3 - 35.7 g/dL [facility] RDW CV 13.5 11.1 - 14.9 % [facility] RDW SD 44.0 35.7 - 48.1 fL [facility] NRBC abs 0.00 0.00 - 0.01 K/cumm [facility] Blood 07/13/2021 12:5 6 PM CONSTRUCTION GRIP 07/13/2021 1:07 PM CONSTRUCTION GRIP us Eren Cr MD LAB BLOOD ORDERABLES Final Re sult [facility] One [facility] Department [place] [address] * (ABNORMAL) Comprehensive metabolic panel (07/13/2021 12:56 PM CONSTRUCTION GRIP) Sodium 138 135 - 145 mmol/L [facility] Potassium, pl 4.5 3.3 - 4.9 mmol/L [facility] Comment:Hemolyzed; Potassium value may be falsely elevated by as much as 0.6-1.0 mmol/L. Suggest redraw and reanalysis. Chloride 105 97 - 110 mmol/L [facility] CO2 23 22 - 32 mmol/L [facility] Anion gap 10 2 - 15 mmol/L [facility] BUN 13 8 - 25 mg/dL [facility] Creatinine 1.04 0.60 - 1.10 mg/dL [facility] Glucose 110 70 - 199 mg/dL [facility] [...] 2017. Calcium 10.4(H) 8.5 - 10.3 mg/dL [facility] Bilirubin, total 0.6 0.1 - 1.2 mg/dL [facility] Protein, pl 7.4 6.5 - 8.5 g/dL [facility] Albumin 4.3 3.5 - 5.0 g/dL [facility] Alk phos 89 40 - 130 Units/L [facility] ALT 21 7 - 45 Units/L [facility] AST 38 10 - 45 Units/L [facility] Comment:Hemolyzed; result ma y be falsely elevated Blood 07/13/2021 12:5 6 PM CONSTRUCTION GRIP 07/13/2021 1:07 PM CONSTRUCTION GRIP us Eren Cr MD LAB BLOOD ORDERABLES Final Re sult [facility] One [facility] Department [place] [address] documented in this encounter Visit Diagnoses Diagnosis Neuroendocrine carcinoma (HCC)- Primary Other malignant neoplasm of unspecified site documented in this encounter Orders Appointment Requests Count Last Ordered Date Fi rst Ordered Date ONCBCN INFUSION APPT REQUEST 1 07/13/2021 documented in this encounter Care Teams Director Private Relationship Specialty Start Date End Date Julio César Briseno MD PCP - General 10/01/16 Eren Cr MD Referring Physician Medical Oncology 11/25/18 Yohana Bowen MD Radiation Oncologist Radiation Oncology 11/25/18 Sabrina Willard NP [address] [place] [address] Nurse Practitioner Medical Oncology 08/17/20 11/26/21 documented as of this encounter
--- OUTSIDE RECORDS SUMMARY | 2024-06-25 22:25 | XMS_ITS | Encounter Summary ---
Author Organization [facility] Address [address] [place] [address] Phone Care Team Providers Care Electronic Security Specialist Name Role Phone Julio César Briseno MD Primary Care Provider Eren Cr MD Unavailable [phone] Yohana Bowen MD Unavailable Sabrina Willard NP Unavailable [phone] Encounter Details Date Type Department Care Team (Late st Contact Info) Description 06/28/2021 Orders Only [facility] Oncology [address] [facility] Advanced Medicine 7th [place] [address] [place] [phone] Elaine Coy Neuroendocrine carcinoma (CMS/HCC) (HCC) (Primary [...] file Legal Sex Female 2:41 PM HEALTH INSURANCE AGENT Gender Identity Not on file Sexual Orientation Straight 02/19/2021 9: 29 AM CDT Occupation Industry Job Start Date Job End Date retired Not on file Not on file Not on file documented as of this encounter Plan of Treatment Not on file documented as of this encounter Results * aPTT (07/04/2021 1:44 PM HEALTH INSURANCE AGENT) aPTT 28 27 - 37 sec [facility] Comment: Interpretive Data Therapeutic heparin range: 60.0 - 94.0 seconds. Based on correlation with therapeutic heparin activity range of 0.3-0.7 Units/mL. Current interpretive data was last revised on 2020. Blood 07/04/2021 1:44 PM HEALTH INSURANCE AGENT 07/04/2021 3:33 PM HEALTH INSURANCE AGENT Eren Cr MD LAB BLOOD ORDERABLES Final Re sult Performing Organization Address [facility] de Phone Number [facility] [place] [employer] [place] [address] * Protime-INR (07/04/2021 1:44 PM HEALTH INSURANCE AGENT) PT 10.3 9.5 - 13.6 sec [facility] INR 0.9 0.9 - 1.2 [facility] Comment: Interpretive data Oral anticoagulant therapeutic ranges: Venous thromboembolism prophylaxis or treatment: 2.0-3.0 CARDIOLOGY Standard range: 2.0-3.0 High-intensity range: 2.5-3.5 Refer to indication-specific guidelines for appropriate target ranges for prosthetic heart valve replacement. Current interpretive data was last revised on 2019. Blood 07/04/2021 1:44 PM HEALTH INSURANCE AGENT 07/04/2021 3:33 PM HEALTH INSURANCE AGENT Eren Cr MD LAB BLOOD ORDERABLES Final Re sult Performing Organization Address [facility] Co de Phone Number [facility] [employer] [place] [address] documented in this encounter Visit Diagnoses Diagnosis Neuroendocrine carcinoma (HCC)- Primary Other malignant neoplasm of unspecified site documented in this encounter Care Teams Electronic Security Specialist Relationship Specialty Start Date End Date Julio César Briseno MD PCP - General 10/01/16 Eren Cr MD Referring Physician Medical Oncology 11/25/18 Yohana Bowen MD Radiation Oncologist Radiation Oncology 11/25/18 Sabrina Willard NP [address] [place] [address] Nurse Practitioner Medical Oncology 08/17/20 11/26/21 documented as of this encounter
--- OUTSIDE RECORDS SUMMARY | 2024-06-25 22:25 | XMS_ITS | Encounter Summary ---
Author Organization [facility] Address [address] [place] [address] Phone Care Team Providers Care Supervisor Mold Shop Name Role Phone Julio César Briseno MD Primary Care Provider Eren Cr MD Unavailable [phone] Yohana Bowen MD Unavailable Sabrina Willard NP Unavailable Encounter Details Date Type Department Care Team (Late st Contact Info) Description 07/20/2021 Orders Only [facility] Oncology [address] [facility] Advanced Medicine [address]th [place] [address] [place] [address] Eren Cr MD [address] [facility] [address] [place] [address] Neuro-endocrine carcinoma (CMS/HCC) (HCC) (Primary Dx) Social [...] file Legal Sex Female 2:41 PM SALES ACCOUNT COORDINATOR Gender Identity Not on file Sexual [...] site documented in this encounter Care Teams Supervisor Mold Shop Relationship Specialty Start Date End Date Julio César Briseno MD PCP - General 10/01/16 Eren Cr MD Referring Physician Medical Oncology 11/25/18 Yohana Bowen MD Radiation Oncologist Radiation Oncology 11/25/18 Sabrina Willard NP [address] [place] [address] Nurse Practitioner Medical Oncology 08/17/20 11/26/21 documented as of this encounter
--- OUTSIDE RECORDS SUMMARY | 2024-06-25 22:26 | XMS_ITS | Encounter Summary ---
Author Organization [facility] Address [address] [place] [address] Phone Care Team Providers Care Cook Chef Name Role Phone Julio César Briseno MD Primary Care Provider Eren rC MD Unavailable [phone] Yohana Bowen MD Unavailable Sabrina Willard NP Unavailable [phone] Encounter Details Date Type Department Care Team (Late st Contact Info) Description 05/30/2021 4:00 PM TYPESETTING MACHINE OPERATOR/TENDER Telemedicine [facility] Surgery [address] [place] [address] Greyson Reeves MD [address] [facility] [phone] [place] 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) (Primary Dx) Social History Tobacco [...] on file Legal Sex Female 2:41 PM TYPESETTING MACHINE OPERATOR/TENDER Gender Identity Not on file Sexual Orientation Straight 02/19/2021 9: 29 AM CDT Occupation Industry Job Start Date Job End Date retired Not on file Not on file Not on file documented as of this encounter Progress Notes * Greyson Reeves MD - 05/30/2021 4:00 PM CST Colorectal Surgery Clinic Visit Chief Complaint: La Chung is a 70 y.o. female with chief complaint of No chief complaint on file. 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 She is managing her stoma without any difficulty. She is having good bowel function, good appetite. The previous abdominal pain that she was having is continuing to improve. I reviewed her most recent MRI images which show stable disease within the liver as well as within the peritoneal cavity. She had submitted images of her stoma with a appliance on and off. The peristomal skin looks pink healthy and intact her PEH is unremarkable. Past Medical History: Diagnosis Date ??? Arthritis [...] ??? JOINT REPLACEMENT Left 2014 ? ? SC REMOVAL OF TONSILS,<12 Y/O Tonsillectomy - (Added by TW Conv) ??? SC TOTAL ABDOM HYSTERECTOMY Hysterectomy - (Added by TW Conv) HOME MEDICATIONS : albuterol HFA (PROVENTIL HFA,VENTOLIN HFA,PROAIR HFA) 90 mcg/actuation inhaler ascorbic acid, vitamin C, 500 mg capsule cholecalciferol (VITAMIN D-3) 2,000 unit capsule cholestyramine (QUESTRAN) 4 gram packet clotrimazole-betamethasone (LOTRISONE) cream coenzyme [id number] E (CO Q-10, WITH VIT E,) 100-5 mg-unit capsule denosumab (XGEVA) 120 mg/1.7 mL (70 mg/mL) injection diphenoxylate-atropine (LOMOTIL) 2.5-0.025 mg per tablet doxycycline hyclate [address] (CYMBALTA) 30 mg capsule everolimus (AFINITOR) 10 mg tablet fluticasone propionate (FLONASE) 50 mcg/actuation nasal spray gabapentin (NEURONTIN) 600 mg tablet loperamide HCl (IMODIUM A-D ORAL) montelukast (SINGULAIR) 10 mg tablet octreotide (SandoSTATIN) 50 mcg/mL (1 mL) syringe olmesartan-hydrochlorothiazide (BENICAR HCT) 20-12.5 mg per tablet ondansetron (ZOFRAN) 8 mg tablet ostomy supplies misc oxybutynin (DITROPAN) 5 mg tablet potassium, sodium phosphates (PHOS-NAK) 280-160-250 mg powder in packet simvastatin (ZOCOR) 20 mg tablet triamcinolone (KENALOG) 0.1 % ointment Allergies Allergen Reactions ??? Morphine Blisters ??? [...] as per HPI and scanned media. Vitals: There were no vitals taken for this visit. Physical exam: Not performed Assessment: La Chung is a 70 y.o. female with colostomy with history of metastatic neuroendocrine tumor Plan: Will go ahead and renew her colostomy is supplies Return to clinic in 1 year This was a telemedicine visit with La Chung alone which took place via TelephoneOther - Patient requested. During the visit, I was located in the office and the patient was located at home in the [facility]. The patient visit started at 130 and ended at 138. My total encounter time on 05/30/2021 was 30 minutes which was spent in the activities documented in the note. This includes time spent prior to the visit and after the visit in direct care of the patient. This time does not include time spent in any separately reportable services. The patient: has been informed that the visit may not be secure and acknowledged the information. The option of participating in a telephone or video visit during the [address] explained to them. After being given an opportunity to ask questions about and discuss this type of visit, they verbally consented to proceeding with the telephone/video visit and understand thatthis service replaces an office visit. Greyson Reeves MD 05/30/2021 1:35 PM SETTING MACHINE OPERATOR/TENDER documented in this encounter Plan of Treatment Not on file documented as of this encounter Visit Diagnoses Diagnosis 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)- Primary Colostomy status documented in this encounter Care Teams Cook Chef Relationship Specialty Start Date End Date Julio César Briseno MD PCP - General 10/01/16 Eren Cr MD Referring Physician Medical Oncology 11/25/18 Yohana Bowen MD Radiation Oncologist Radiation Oncology 11/25/18 Sabrina Willard NP [address] [place] [address] Nurse Practitioner Medical Oncology 08/17/20 11/26/21 documented as of this encounter
--- OUTSIDE RECORDS SUMMARY | 2024-06-25 22:26 | XMS_ITS | Encounter Summary ---
Author Organization [facility] Address [address] [place] [address] Phone Care Team Providers Care Senior Oracle Database Administrator Name Role Phone Julio César Briseno MD Primary Care Provider [phone] Eren Cr MD Unavailable [phone] Yohana Bowen MD Unavailable Sabrina Willard NP Unavailable [phone] Reason for Visit * Episode Based Medications (Routine) - Closed Specialty Diagnoses / Procedures Referred By Contac t Referred To Contact Diagnoses Hypophosphatemia Procedures HI INJ MAGNESIUM SULFATE Eren Cr MD [address] [facility] [address] [place] [address] Phone: tel: fax: [facility] [address] [place] [address] [place] [address] Phone: tel: Referral ID Status Reason Start Date Expiration Date Visits Re quested Visits Authorized [id number] Closed 06/14/2021 07/14/2022 1 20 Encounter Details Date Type Department Care Team (Late st Contact Info) Description 06/19/2021 4:00 PM 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'S 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 PROFESSOR Infusion [facility] [address] [place] [address] Neuroendocrine carcinoma (CMS/HCC) (HCC) (Primary Dx); Bone metastasis (CMS/HCC) (HCC); Neuro-endocrine carcinoma (CMS/HCC) (HCC); Malignant neoplasm metastatic [...] on file Legal Sex Female 2:41 PM CHILDREN'S LITERATURE PROFESSOR Gender Identity Not on file Sexual Orientation Straight 02/19/2021 9: 29 AM CDT Occupation Industry Job Start Date Job End Date retired Not on file Not on file Not on file documented as of this encounter Nursing Notes * Susana Begum - 06/19/2021 4:00 PM CST Please review charting in additional encounter for this date DREN'S LITERATURE PROFESSOR documented in this encounter Plan of [...] 30 mg 30 mg, intramuscular, Once, On 06/19/21 at 1815, For 1 dose, Refrigerate. For IM intragluteal administration only- alternate gluteal sites. Shake.Indications:Maligna nt neoplasm metastatic to liver (HCC),Neuroendocrine carcinoma (HCC) Given 06/19/2021 7:07 PM CHILDREN'S LITERATURE PROFESSOR 30 mg Right Dorsogluteal/Bu ttock sodium chloride 0.9% bolus 500 mL 500 mL, intravenous, at 500 mL/hr, Administer over 1 Hours, Once, On 06/19/21 at 1815, For 1 doseIndications:Bone metastasis,Neuro-endocrin e carcinoma (HCC) New Bag 06/19/2021 5:25 PM CHILDREN'S LITERATURE PROFESSOR 500 mL 500 mL/hr documented in this encounter Orders Nursing Count Last Ordered Date First Orde red Date ONCBCN NURSING COMMUNICATION [id number] 2 06/19 Appointment Requests Count Last Ordered Date Fi rst Ordered Date ONCBCN INFUSION APPT REQUEST 1 06/19/2021 documented in this encounter Care Teams Senior Oracle Database Administrator Relationship Specialty Start Date End Date Julio César Briseno MD PCP - General 10/01/16 Eren Cr MD Referring Physician Medical Oncology 11/25/18 Yohana Bowne MD Radiation Oncologist Radiation Oncology 11/25/18 Sabrina Willard NP [address] [place] [address] Nurse Practitioner Medical Oncology 08/17/20 11/26/21 documented as of this encounter
--- OUTSIDE RECORDS SUMMARY | 2024-06-25 22:26 | XMS_ITS | Encounter Summary ---
Author Organization [facility] Address [address] [place] [address] Phone Care Team Providers Care Surveillance Dual Rate Officer Name Role Phone Julio César Briseno MD Primary Care Provider [phone] Eren Cr MD Unavailable [phone] Yohana [place] MD Unavailable Sabrina Willard NP Unavailable [phone] 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) Procedures CA OCTREOTIDE INJECTION, DEPOT Octreotide 28 Day Cycles - Carcinoid Eren Cr MD [address] [facility] [address] [place] [address] Phone: tel: fax: [facility] [address] [address] Phone: tel: fax: Referral ID Status Reason Start Date Expiration Date V isits Requested Visits Authorized [id number] Authorized 11/28/2017 02/05/2025 1 150 Encounter Details Date Type Department Care Team (Late st Contact Info) Description 04/24/2021 2:30 PM CDT Lab 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[employer] Gender Identity Not on file Sexual Orientation Straight 02/19/2021 9: 29 AM CDT Occupation Industry Job Start Date Job End Date retired Not on file Not on file Not on file documented as of this encounter Plan of Treatment Not on file documented as of this encounter Procedures Procedure Name Priority Date/Time Associated Diagnosis Comments EGFR STAT 04/24/2021 2:54 PM CDT 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) DIFFERENTIAL AUTO Routine 04/24/2021 2:5 4 PM CDT 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) CHROMOGRANIN A Routine 04/24/2021 2:54 PM CDT 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) CBC WITH AUTO DIFFERENTIAL Routine 04/24/2021 2:54 PM CDT 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) VITAMIN D 25 HYDROXY Routine 04/24/2021 2:54 PM CDT 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) PHOSPHORUS Routine 04/24/2021 2:54 PM CDT 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) LIPID PANEL Routine 04/24/2021 2:54 PM CDT 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) COMPREHENSIVE METABOLIC PANEL STAT 04/24/2021 2:54 PM CDT 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) documented in this encounter Results * (ABNORMAL) eGFR (04/24/2021 2:54 PM CDT) [facility] eGFR 63(L) 90 - 130 mL/min/1.7 3 m2 [facility] Comment: Interpretive Data Reference Interval Normal ?>/= 90 mL/min/1.73m2 Mildly decreased* ? 60 - 89 mL/min/1.73m2 Mildly to moderately decreased ?45 - 59 mL/min/1.73m2 Moderately to severely decreased ??30 - 44 mL/min/1.73m2 Severely decreased ?15 - 29 mL/min/1.73m2 Kidney Failure ?< 15 ??mL/min/1.73m2 *Relative to young adult level Estimated glomerular filtration rate is determined by the CKD-EPI equation recommended by the National Kidney Foundation (KDIGO 2012 Clinical Practice Guideline for the Evaluation and Management of Chronic Kidney Disease. Kidney Intnl Suppl Jul 2012;3:1). The CKD-EPI equation should not be used for patients with unstable renal function and has not been validated in children and those over 70. Current interpretive data was last reviewed 2020 Testing performed by: [facility], [address] [place] [phone] Blood 04/24/2021 2:54 PM CDT 04/24/2021 2:55 PM CDT us Eren Cr MD LAB BLOOD ORDERABLES Final Re sult [facility] Department [place] [address] * (ABNORMAL) Differential, auto (04/24/2021 2:54 PM CDT) Neutrophil abs 3.4 1.8 - 6.6 K/cumm [facility] Comment:Testing performed by : [facility], [address] [place] [phone] Lymphocyte abs 0.5(L) 1.2 - 3.3 K/cumm [facility] BJ Comment:Testing performed by : [facility], [address] [place] [phone] Monocyte abs 0.6 0.2 - 1.2 K/cumm C[facility]ER BJ Comment:Testing performed by : [facility], [address] [place] [phone] Eosinophil abs 0.1 0.0 - 0.5 K/cumm C[facility]ER BJ Comment:Testing performed by : [facility], [address] [place] [phone] Basophil abs 0.0 0.0 - 0.2 K/cumm [facility]ER BJ Comment:Testing performed by : [facility], [address] [place] [phone] Neutrophil pct 73.6 % [facility] Comment: Interpretive Data Percent cell count reference ranges are not reported, since discordance with absolute values may lead to misinterpretation of CBC data. Current Interpretive Data was last revised on 2017. Testing performed by: [facility], [address] [place] [phone] Lymphocyte pct 10.9 % [facility] Comment: Interpretive Data Percent cell count reference ranges are not reported, since discordance with absolute values may lead to misinterpretation of CBC data. Current Interpretive Data was last revised on 2017. Testing performed by: [facility], [address] [facility] [phone] Monocyte pct 12.8 % JASON BLACK Comment:Testing performed by : [facility], [address] [facility] [phone] Eosinophil pct 1.8 % JASON BLACK Comment:Testing performed by : [facility], [address] [facility] [phone] Basophil pct 0.9 % J[facility]ON BLACK Comment:Testing performed by : [facility], [address] [facility] [phone] Blood 04/24/2021 2:54 PM CDT 04/24/2021 2:55 PM CDT us Eren Cr MD LAB BLOOD ORDERABLES Final Re sult [facility] Department [place] [address] * (ABNORMAL) Lipid panel (04/24/2021 2:54 PM CDT) Cholesterol 184 30 - 199 mg/dL J[facility] BL[facility] Comment: [...] Data was last revised on 2018. Triglycerides 308(H) <=149 mg/dL [facility] Comment: Interpretive Data [...] Data was last revised on 2018. HDL 65 >=40 mg/dL [facility] Comment: Interpretive Data Ages < [...] on 2018. LDL, calculated 57 <=129 mg/dL [facility] Comment: Interpretive Data Ages < [...] revised on 2018. Non-HDL Cholesterol 119 mg/dL [facility] Comment: Interpretive Data Ages < [...] revised on 2018. Chol/HDL ratio 3 [facility] Blood 04/24/2021 2:54 PM CDT 04/24/2021 3:28 PM CDT Eren Cr MD LAB BLOOD ORDERABLES Final Re sult [facility] Department [place] [address] * Phosphorus (04/24/2021 2:54 PM CDT) Phosphorus, pl 2.9 2.3 - 4.5 mg/dL [facility] Comment:Testing performed by : [facility], [address] [place] [phone] Blood 04/24/2021 2:54 PM CDT 04/24/2021 2:55 PM CDT Eren Cr MD LAB BLOOD ORDERABLES Final Re sult [facility] [place] [address] * Vitamin D 25 hydroxy (04/24/2021 2:54 PM CDT) Pathologist [facility] Vitamin D 25-OH 30 30 - 80 ng/mL [facility] Blood 04/24/2021 2:54 PM CDT 04/24/2021 3:28 PM CDT Eren Cr MD LAB BLOOD ORDERABLES Final Re sult Performing Organization Address [facility] Co de Phone Number [facility] [place] [address] * (ABNORMAL) CBC with auto differential (04/24/2021 2:54 PM CDT) [facility] WBC 4.7 3.8 - 9.8 K/cumm [facility] Comment:Testing performed by : [facility], [address] [place] [phone] Hgb 12.7 12.1 - 15.1 g/dL [facility] Comment:Testing performed by : [facility], [address] [place] [phone] Hct 37.9 36.1 - 44.3 % [facility] Comment:Testing performed by : [facility], [address] [place] [phone] Plt 182 140 - 440 K/cumm [facility] Comment:Testing performed by : [facility], [address] [place] [phone] MPV 7.7 6.8 - 10.4 fL [facility] Comment:Testing performed by : [facility], [address] [place] [phone] RBC 4.15 3.90 - 5.00 M/cumm JASON BJ Comment:Testing performed by : [facility], [address] [place] [phone] MCV 91.4 80.0 - 97.6 fL J[facility]ON BLACK Comment:Testing performed by : [facility], [address] [place] [phone] MCH 30.6 26.7 - 33.7 pg J[facility]ON BLACK Comment:Testing performed by : [facility], [address] [place] [phone] MCHC 33.4 32.7 - 35.5 g/dL J[facility] BLACK Comment:Testing performed by : [facility], [address] [place] [phone] RDW CV 20.2(H) 11.8 - 14.6 % [facility] BLACK Comment:Testing performed by : [facility], [address] [place] [phone] NRBC abs 0.00 0.00 - 0.01 K/cumm JAS[facility] BLACK Comment:Testing performed by : [facility], [address] [place] [phone] Blood 04/24/2021 2:54 PM CDT 04/24/2021 2:55 PM CDT Eren Cr MD LAB BLOOD ORDERABLES Final Re sult [facility] Department [place] [address] * (ABNORMAL) Comprehensive metabolic panel (04/24/2021 2:54 PM CDT) Sodium 139 135 - 145 mmol/L [facility] BLACK Comment:Testing performed by : [facility], [address] [place] [phone] Potassium, pl 4.2 3.3 - 4.9 mmol/L [facility] BLACK Comment:Testing performed by : [facility], [address] [place] [phone] Chloride 106 97 - 110 mmol/L J[facility] BLACK Comment:Testing performed by : [facility], [address] [place] [phone] CO2 26 22 - 32 mmol/L [facility]J Comment:Testing performed by : [facility], [address] [place] [phone] Anion gap 7 2 - 15 mmol/L [facility]J Comment:Testing performed by : [facility], [address] [place] [phone] BUN 14 8 - 25 mg/dL [facility]J Comment:Testing performed by : [facility], [address] [place] [phone] Creatinine 0.91 0.60 - 1.10 mg/dL [facility]J Comment:Testing performed by : [facility], [address] [place] [phone] Glucose 135 70 - 199 mg/dL [facility] Comment: [...] was last revised 2017. Testing performed by: [facility], [address] [place] [phone] Calcium 10.4(H) 8.5 - 10.3 mg/dL [facility]J Comment:Testing performed by : [facility], [address] [place] [phone] Bilirubin, total 0.5 0.1 - 1.2 mg/dL [facility] BJ Comment:Testing performed by : [address] [phone] Protein, pl 7.2 6.5 - 8.5 g/dL [facility] Comment:Testing performed by : [address] [phone] Albumin 4.4 3.5 - 5.0 g/dL C[facility] BJ Comment:Testing performed by : [facility], [address] [place] [phone] Alk phos 107 40 - 130 Units/L [facility] Comment:Testing performed by : [facility], [address] [facility] [phone] ALT 20 7 - 45 Units/L [facility] Comment:Testing performed by : [facility], [address] [facility] [phone] AST 24 10 - 45 Units/L [facility] Comment:Testing performed by : [facility], [address] [facility] [phone] Blood 04/24/2021 2:54 PM CDT 04/24/2021 2:55 PM CDT Eren Cr MD LAB BLOOD ORDERABLES Final Re sult [facility] Department [place] [address] * (ABNORMAL) Chromogranin A (04/24/2021 2:54 PM CDT) Chromogranin A 1125(H) <93 ng/mL [facility] Comment: Impaired renal or hepatic function or treatment with proton pump inhibitors may result in artifactual elevations of Chromogranin A. ADDITIONAL INFORMATION This test was developed and its performance characteristics determined by [facility] in a manner consistent with CLIA requirements. This test has not been cleared or approved by the U.S. Food and Drug Administration. The testing method is a homogeneous time-resolved immunofluorescent assay manufactured by [employer] and performed on the [employer] Kryptor Compact Plus. ? Values obtained with different assay methods or kits may be different and cannot be used interchangeably. ? Test results cannot be interpreted as absolute evidence for the presence or absence of malignant disease. Test Performed by: [address] [address] Ecommerce Marketing Specialist: Immanuel Novak M.D. Ph.D.; CLIA# [id number] Blood 04/24/2021 2:54 PM CDT 04/24/2021 4:52 PM CDT us Eren Cr MD LAB BLOOD ORDERABLES Final Re sult [facility] Department [place] [address] documented in this encounter Visit Diagnoses Diagnosis Neuroendocrine carcinoma (HCC) Other malignant neoplasm of unspecified site Malignant neoplasm metastatic to liver (HCC) documented in this encounter Orders Appointment Requests Count Last Ordered Date Fi rst Ordered Date ONCBCN LAB APPOINTMENT 1 04/24/2021 documented in this encounter Care Teams Surveillance Dual Rate Officer Relationship Specialty Start Date End Date Julio César Briseno MD PCP - General 10/01/16 Eren Cr MD Referring Physician Medical Oncology 11/25/18 Yohana [place] MD Radiation Oncologist Radiation Oncology 11/25/18 Sabrina Willard NP [address] [place] [address] Nurse Practitioner Medical Oncology 08/17/20 11/26/21 documented as of this encounter
--- OUTSIDE RECORDS SUMMARY | 2024-06-25 22:26 | XMS_ITS | Encounter Summary ---
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) Procedures CT chest with contrast Eren Cr MD [facility] [place] [address] Phone: tel: fax: [address] [address] Referral ID Status Reason Start Date Expiration Date Visits Re quested Visits Authorized [id number] Closed 04/24/2021 05/24/2022 1 1 UNT ENGINEER Reason for Visit * MRI/CAT/PET Scan (Routine) - Closed Specialty Diagnoses / Procedures [facility] Referred To Contact Radiology Diagnoses Neuroendocrine carcinoma (HCC) Bone metastasis Malignant neoplasm metastatic to liver (HCC) Procedures CT chest with contrast Eren Cr MD [address] [facility] [address] [place] [address] Phone: tel: fax: [facility] [place] [address] Referral ID Status Reason Start Date Expiration Date Visits Re quested Visits Authorized [id number] Closed 04/24/2021 05/24/2022 1 1 Encounter Details Date Type Department Care Team (Latest Contact Info) Description 05/15/2021 3:40 PM ACCOUNT ENGINEER - 05/15/2021 11:59 PM ACCOUNT ENGINEER Hospital Encounter [facility] [address] [place] [id number] Eren Cr MD [address] [facility] [address] [place] [address] Neuroendocrine carcinoma (CMS/HCC) (HCC); Bone metastasis (CMS/HCC) (HCC); Malignant neoplasm metastatic [...] file Legal Sex Female 2:41 PM ACCOUNT ENGINEER Gender Identity Not on file Sexual Orientation Straight 02/19/2021 9: 29 AM CDT Occupation Industry Job Start Date Job End Date retired Not on file Not on file Not on file documented as of this encounter Medications at Time of Discharge loperamide HCl (IMODIUM A-D ORAL)Indications:d iarrhea Take 1 tablet by mouth daily as needed (diarrhea) Patient takes 6-8 tablets a day. 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 07/04/2016 4 cholecalciferol (VITAMIN D-3) 2,000 unit capsule Take 1 capsule (2,000 Units total) by mouth daily 30 capsule 2 04/25/2019 3 cholestyramine (QUESTRAN) 4 gram packet Take 1 packet by mouth 3 (three) times a day with meals 270 packet 3 09/04/2019 2 clotrimazole-betam ethasone (LOTRISONE) cream Apply 1 Application topically daily as needed (rash) 4 coenzyme [id number] E 100-5 mg-unit capsuleIndications :supplement Take 1 tablet by mouth freight trucker before breakfast 4 denosumab (XGEVA) 120 mg/1.7 [...] a day 90 tablet 11 09/01/2020 2 HYDROcodone-acetam inophen (NORCO) 5-325 mg per tablet 11/20/2020 1 montelukast (SINGULAIR) 10 mg tablet Take 1 [...] for 14 days 28 tablet 04/24/2019 2 oxyCODONE (ROXICODONE) 5 mg immediate release tabletIndications: Pain Take 1 tablet (5 mg total) by mouth every 4 (four) hours as needed for pain 8 tablet 11/20/2020 1 predniSONE (DELTASONE) 20 mg tablet TAKE 2 TABLETS BY MOUTH EVERY DAY FOR 5 DAYS 03/24/2021 1 triamcinolone (KENALOG) 0.1 % ointment Apply to itchy rash on hands twice daily until improved 454 g 1 05/06/2020 4 documented as of this encounter Discharge Disposition Disposition Code Departure Means Destination Discharge to home or self care documented in this encounter Plan of Treatment Not on file documented as of this encounter Procedures Procedure Name Priority Date/Time Associated Diagnosis Comments CT CHEST W CONTRAST Schedule Routine, Read Routine (OP Routine) 05/15/2021 4:37 PM ACCOUNT ENGINEER Neuroendocrine carcinoma (CMS/HCC) (HCC) Bone metastasis (CMS/HCC) (HCC) 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) documented in this encounter Results * CT chest with contrast (05/15/2021 4:37 PM ACCOUNT ENGINEER) Anatomical Region Laterality Modality Body N/A Computed Tomogra phy 05/15/2021 6:14 PM ACCOUNT ENGINEER Impressions 05/15/2021 6:14 PM ACCOUNT ENGINEER 1. ??Interval decrease in peripheral and basilar predominant ground glass opacity/reticulation and peribronchial vascular thickening consistent with resolving infectious/inflammatory etiology such as previously suggested organizing pneumonia. 2. ??No evidence of disease progression in the chest. 3. ??Partially imaged hepatic lesions are relatively stable in size allowing for differences in acquisition and technique. However enhancement characteristics have decreased since the prior exam. If further characterization of hepatic lesions is desired, repeat MRI abdomen should be obtained Electronically signed by: Ace Almanzar MD Narrative 05/15/2021 6:14 PM ACCOUNT ENGINEER EXAMINATION: ??Computed tomography of the chest with intravenous contrast HISTORY: 70-year-old female with history of neuroendocrine carcinoma presenting for follow-up of pneumonitis TECHNIQUE: ??Transaxial computed tomographic images of the chest were obtained with intravenous contrast according to the standard protocol after the uneventful administration of 100 mL Opti-Ray 350 intravenous contrast. COMPARISON: Multiple prior examinations, most recent CT chest with contrast dated 03/23/2021 FINDINGS: ?? Lines: None. CHEST: A left-sided aortic arch is present. ??The aorta and main pulmonary artery normal in course and caliber. No filling defect is identified to suggest central pulmonary embolus on this non-PE protocol study. Atherosclerosis of the aorta and its major branching vessels is present. Bilateral subcentimeter supraclavicular lymph nodes are stable from the prior examination. No axillary, mediastinal, or hilar lymphadenopathy is identified. The thyroid enhances homogenously. Cardiac size is within normal limits. ??No pericardial effusion is present. Previously noted basilar peripheral predominant ground glass opacities with reticulation of peribronchial vascular thickening is substantially decreased from the prior examination, consistent with resolving infectious/inflammatory etiology. No pleural effusions are seen. Some persistent interlobular septal thickening is seen in the bilateral lung bases. No pneumothorax is identified. ??Previously noted bilateral pulmonary nodules on examination dated 11/11/2020 are not clearly characterized on this exam. These may still somewhat be obscured by resolving inflammatory sequela. The trachea is patent without endobronchial lesion. Partially imaged metastatic hepatic lesions are better characterized on the prior examination dated 03/23/2021. These appear less prominent on this examination, which may represent a component of contrast phase versus posttreatment change. For reference. The largest in hepatic segment 8 measures 3.0 cm, unchanged. However, lesion enhancement is decreased in comparison to the prior examination The soft tissues are within normal limits. No lytic or blastic lesions are identified. ??The osseous structures are intact. Procedure Note Aec Almanzar MD - 05/15/2021 EXAMINATION: Computed tomography of the chest with intravenous contrast HISTORY: 70-year-old female with history of neuroendocrine carcinoma presenting for follow-up of pneumonitis TECHNIQUE: Transaxial computed tomographic images of the chest were obtained with intravenous contrast according to the standard protocol after the uneventful administration of 100 mL Opti-Ray 350 intravenous contrast. COMPARISON: Multiple prior examinations, most recent CT chest with contrast dated 03/23/2021 FINDINGS: Lines: None. CHEST: A left-sided aortic arch is present. The aorta and main pulmonary artery normal in course and caliber. No filling defect is identified to suggest central pulmonary embolus on this non-PE protocol study. Atherosclerosis of the aorta and its major branching vessels is present. Bilateral subcentimeter supraclavicular lymph nodes are stable from the prior examination. No axillary, mediastinal, or hilar lymphadenopathy is identified. The thyroid enhances homogenously. Cardiac size is within normal limits. No pericardial effusion is present. Previously noted basilar peripheral predominant ground glass opacities with reticulation of peribronchial vascular thickening is substantially decreased from the prior examination, consistent with resolving infectious/inflammatory etiology. No pleural effusions are seen. Some persistent interlobular septal thickening is seen in the bilateral lung bases. No pneumothorax is identified. Previously noted bilateral pulmonary nodules on examination dated 11/11/2020 are not clearly characterized on this exam. These may still somewhat be obscured by resolving inflammatory sequela. The trachea is patent without endobronchial lesion. Partially imaged metastatic hepatic lesions are better characterized on the prior examination dated 03/23/2021. These appear less prominent on this examination, which may represent a component of contrast phase versus posttreatment change. For reference. The largest in hepatic segment 8 measures 3.0 cm, unchanged. However, lesion enhancement is decreased in comparison to the prior examination The soft tissues are within normal limits. No lytic or blastic lesions are identified. The osseous structures are intact. IMPRESSION: 1. Interval decrease in peripheral and basilar predominant ground glass opacity/reticulation and peribronchial vascular thickening consistent with resolving infectious/inflammatory etiology such as previously suggested organizing pneumonia. 2. No evidence of disease progression in the chest. 3. Partially imaged hepatic lesions are relatively stable in size allowing for differences in acquisition and technique. However enhancement characteristics have decreased since the prior exam. If further characterization of hepatic lesions is desired, repeat MRI abdomen should be obtained Electronically signed by: Ace Almanzar MD us Eren Cr MD IMG CT PROCEDURES [...] Dose Rate Site ioversoL (OPTIRAY 350) syringe syringe 100 mL 100 mL, intravenous, Once in imaging, contrast, Starting on 05/15/21 at 1625, For 1 dose Contrast Given 05/15/2021 4:25 PM ACCOUNT ENGINEER 94 mL documented in this encounter Orders Medications Ordered That Brett ht Not Have Been Administered Count Last Ordered Date First Ordered Date ioversoL (OPTIRAY 350) syrin ge syringe 100 mL 1 05/15/2021 documented in this encounter Care Teams Pit Clerk Relationship Specialty Start Date End Date Julio César Briseno MD PCP - General 10/01/16 Eren Cr MD Referring Physician Medical Oncology 11/25/18 Yohana Bowen MD Radiation Oncologist Radiation Oncology 11/25/18 Sabrina Willard NP [address] [place] [address] Nurse Practitioner Medical Oncology 08/17/20 11/26/21 documented as of this encounter
--- OUTSIDE RECORDS SUMMARY | 2024-06-25 22:26 | XMS_ITS | Encounter Summary ---
Author Organization [facility] Address [address] [place] [address] Phone Care Team Providers Care Jewel Bearing Grinder Name Role Phone Julio César Briseno MD Primary Care Provider [phone] Eren Cr MD Unavailable Yohana Bowen MD Unavailable Sabrina Willard NP Unavailable [phone] Encounter Details Date Type Department Care Team (Late st Contact Info) Description 06/21/2021 Orders Only [facility] Oncology [address] [facility] 7th [place] [address] [place] [phone] Eren Cr MD [address] [facility] [address] [place] [address] Social History Tobacco Use Types Packs/Day Years [...] on file Legal Sex Female 2:41 PM FITTER 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 Gender Identity Not on file Sexual Orientation Straight 02/19/2021 9: 29 AM CDT Occupation Industry Job Start Date Job End Date retired Not on file Not on file Not on file documented as of this encounter Plan of Treatment Not on file documented as of this encounter Visit Diagnoses Not on filedocumented in this encounter Care Teams Jewel Bearing Grinder Relationship Specialty Start Date End Date Julio César Briseno MD PCP - General 10/01/16 Eren Cr MD Referring Physician Medical Oncology 11/25/18 Yohana Bowen MD Radiation Oncologist Radiation Oncology 11/25/18 Sabrina Willard NP [address] [place] [address] Nurse Practitioner Medical Oncology 08/17/20 11/26/21 documented as of this encounter
--- OUTSIDE RECORDS SUMMARY | 2024-06-25 22:26 | XMS_ITS | Encounter Summary ---
Author Organization [facility] Address [address] [place] [address] Phone Care Team Providers Care Online Services Manager Name Role Phone Julio César Briseno MD Primary Care Provider Eren Cr MD Unavailable Yohana Bowen MD Unavailable Sabrina Willard NP Unavailable [phone] Encounter Details Date Type Department Care Team (Late st Contact Info) Description 06/19/2021 Orders Only [facility] On[facility] [address] [facility] 7th [place] [address] [place] [id number] Eren Cr MD [address] [facility] [address] [place] [address] Neuroendocrine carcinoma (CMS/HCC) (HCC) (Primary Dx) Social [...] file Legal Sex Female 2:41 PM STOCK SHIPPER Gender Identity Not on file Sexual Orientation Straight 02/19/2021 9: 29 AM CDT Occupation Industry Job Start Date Job End Date retired Not on file Not on file Not on file documented as of this encounter Plan of Treatment Not on file documented as of this encounter Results * Protime-INR (06/19/2021 6:45 PM STOCK SHIPPER) PT 10.7 9.5 - 13.6 sec [facility] INR 1.0 0.9 - 1.2 [facility] Comment: Interpretive data Oral anticoagulant therapeutic ranges: Venous thromboembolism prophylaxis or treatment: 2.0-3.0 CARDIOLOGY Standard range: 2.0-3.0 High-intensity range: 2.5-3.5 Refer to indication-specific guidelines for appropriate target ranges for prosthetic heart valve replacement. Current interpretive data was last revised on 2019. Blood 06/19/2021 6:45 PM STOCK SHIPPER 06/19/2021 7:09 PM STOCK SHIPPER Eren Cr MD LAB BLOOD ORDERABLES Final Re sult Performing Organization Address City/[facility] de Phone Number [facility] [address] [facility] Department [place] [address] * (ABNORMAL) aPTT (06/19/2021 6:45 PM STOCK SHIPPER) aPTT 24(L) 27 - 37 sec [facility] Comment: Interpretive Data Therapeutic heparin range: 60.0 - 94.0 seconds. Based on correlation with therapeutic heparin activity range of 0.3-0.7 Units/mL. Current interpretive data was last revised on 2020. Blood 06/19/2021 6:45 PM STOCK SHIPPER 06/19/2021 7:09 PM STOCK SHIPPER Eren Cr MD LAB BLOOD ORDERABLES Final Re sult Performing Organization Address City/State/[facility] [place] [address] * Creatinine (06/19/2021 6:45 PM STOCK SHIPPER) Creatinine 0.98 0.60 - 1.10 mg/dL [facility] Blood 06/19/2021 6:45 PM STOCK SHIPPER 06/19/2021 7:10 PM STOCK SHIPPER Eren Cr MD LAB BLOOD ORDERABLES Final Re sult Performing Organization Address [facility] [place] [address] * Magnesium (06/19/2021 6:45 PM STOCK SHIPPER) Pathologist [facility] Magnesium 1.9 1.4 - 2.5 mg/dL [facility] Blood 06/19/2021 6:45 PM STOCK SHIPPER 06/19/2021 7:10 PM STOCK SHIPPER Eren Cr MD LAB BLOOD ORDERABLES Final Re sult Performing Organization Address [facility]/ZIP Co de Phone Number [facility] [place] [address] * TSH reflex to free T4 (06/19/2021 6:45 PM STOCK SHIPPER) Pathologist [facility] TSH 2.13 0.30 - 4.20 mcIUnit/mL [facility] Blood 06/19/2021 6:45 PM STOCK SHIPPER 06/19/2021 7:10 PM STOCK SHIPPER Eren Cr MD LAB BLOOD ORDERABLES Final Re sult Performing Organization Address City/[facility]/ZIP Co de Phone Number [facility] [address] documented in this encounter Visit Diagnoses Diagnosis Neuroendocrine carcinoma (HCC)- Primary Other malignant neoplasm of unspecified site documented in this encounter Care Teams Online Services Manager Relationship Specialty Start Date End Date Julio César Briseno MD PCP - General 10/01/16 Eren Cr MD Referring Physician Medical Oncology 11/25/18 Yohana Bowen MD Radiation Oncologist Radiation Oncology 11/25/18 Sabrina Willard NP [address] [place] [address] Nurse Practitioner Medical Oncology 08/17/20 11/26/21 documented as of this encounter
--- OUTSIDE RECORDS SUMMARY | 2024-06-25 22:26 | XMS_ITS | Encounter Summary ---
Author Organization [facility] Address [address] [place] [address] Phone Care Team Providers Care Traffic Control Operator Name Role Phone Julio César Briseno MD Primary Care Provider [phone] Eren Cr MD Unavailable [phone] Yohana Bowen MD Unavailable Sabrina Willard NP Unavailable [phone] Reason for Referral * MRI/CAT/PET Scan (Routine) - Closed Specialty Diagnoses / Procedures Referred By Contac t Referred To Contact Radiology Diagnoses Neuroendocrine carcinoma (HCC) Procedures CT chest abdomen pelvis with contrast Eren Cr MD [address] [place] [address] Phone: tel: fax: [address] [address] Referral ID Status Reason Start Date Expiration Date Visits Re quested Visits Authorized [id number] Closed 06/19/2021 07/19/2022 1 1 OARD TECHNICIAN Encounter Details Date Type Department Care Team (Late st Contact Info) Description 06/19/2021 Orders Only [facility] Oncology Formerly [facility] 7th [place] [address] [place] [address] Eren Cr MD [address] [facility] [address] [place] [address] Neuroendocrine carcinoma (CMS/HCC) (HCC) (Primary Dx); Malignant [...] on file Legal Sex Female 2:41 PM OUTBOARD TECHNICIAN Gender Identity Not on file Sexual Orientation Straight 02/19/2021 9: 29 AM CDT Occupation Industry Job Start Date Job End Date retired Not on file Not on file Not on file documented as of this encounter Plan of Treatment Not on file documented as of this encounter Results * (ABNORMAL) Chromogranin A (07/17/2021 1:58 PM OUTBOARD TECHNICIAN) Chromogranin A 1727(H) <93 ng/mL [facility] Comment: Impaired renal or hepatic function or treatment with proton pump inhibitors may result in artifactual elevations of Chromogranin A. ADDITIONAL INFORMATION This test was developed and its performance characteristics determined by [facility] in a manner consistent with CLIA requirements. This test has not been cleared or approved by the U.S. Food and Drug Administration. The testing method is a homogeneous time-resolved immunofluorescent assay manufactured by [employer] and performed on the [employer] Compact Plus. ? Values obtained with different assay methods or kits may be different and cannot be used interchangeably. ? Test results cannot be interpreted as absolute evidence for the presence or absence of malignant disease. Test Performed by: [facility] [address] [facility], [place] [address] Night Shift Manager: Immanuel Novak M.D. Ph.D.; CLIA# [id number] Blood 07/17/2021 1:58 PM OUTBOARD TECHNICIAN 07/17/2021 3:22 PM OUTBOARD TECHNICIAN Eren Cr MD LAB BLOOD ORDERABLES Final Re sult [facility] Department [place] [address] * (ABNORMAL) Comprehensive metabolic panel (07/17/2021 1:58 PM OUTBOARD TECHNICIAN) Sodium 141 135 - 145 mmol/L [facility] Comment:Testing performed by : [facility], [address] [place] [phone] Potassium, pl 4.7 3.3 - 4.9 mmol/L [facility] Comment:Testing performed by : [facility], [address] [place] [phone] Chloride 107 97 - 110 mmol/L [facility] Comment:Testing performed by : [facility], [address] [place] [phone] CO2 26 22 - 32 mmol/L [facility] Comment:Testing performed by : [address] [address] Anion gap 8 2 - 15 mmol/L [facility] Comment:Testing performed by : [facility], [address] [place] [phone] BUN 14 8 - 25 mg/dL [facility] Comment:Testing performed by : [facility], [address] [place] [phone] Creatinine 1.04 0.60 - 1.10 mg/dL [facility] Comment:Testing performed by : [facility], [address] [place] [phone] Glucose 111 70 - 199 mg/dL [facility] Comment: Interpretive Data Fasting glucose >/= [...] was last revised 2017. Testing performed by: [facility], [address] [place] [phone] Calcium 10.4(H) 8.5 - 10.3 mg/dL [facility] Comment:Testing performed by : [address] [address] Bilirubin, total 0.5 0.1 - 1.2 mg/dL [facility] Comment:Testing performed by : [address] [address] Protein, pl 7.2 6.5 - 8.5 g/dL [facility] Comment:Testing performed by : [address] [address] Albumin 4.4 3.5 - 5.0 g/dL [facility] Comment:Testing performed by : [address] [address] Alk phos 93 40 - 130 Units/L [facility] Comment:Testing performed by : [address] [address] ALT 12 7 - 45 Units/L [facility] Comment:Testing performed by : [address] [address] AST 19 10 - 45 Units/L [facility] Comment:Testing performed by : [address] [phone] Blood 07/17/2021 1:58 PM OUTBOARD TECHNICIAN 07/17/2021 2:01 PM OUTBOARD TECHNICIAN us Eren Cr MD LAB BLOOD ORDERABLES Final Re sult [facility] Department [place] [address] * CBC with auto differential (07/17/2021 1:58 PM OUTBOARD TECHNICIAN) WBC 5.4 3.8 - 9.8 K/cumm [facility] Comment:Testing performed by : [facility], [address] [place] [phone] Hgb 14.0 12.1 - 15.1 g/dL [facility] Comment:Testing performed by : [facility], [address] [place] [phone] Hct 41.1 36.1 - 44.3 % [facility] Comment:Testing performed by : [facility], [address] [place] [phone] Plt 149 140 - 440 K/cumm [facility] Comment:Testing performed by : [facility], [address] [place] [phone] MPV 7.8 6.8 - 10.4 fL [facility] Comment:Testing performed by : [address] [address] RBC 4.56 3.90 - 5.00 M/cumm [facility] Comment:Testing performed by : [address] [address] MCV 90.2 80.0 - 97.6 fL [facility] Comment:Testing performed by : [facility], [address] [place] [phone] MCH 30.8 26.7 - 33.7 pg [facility] Comment:Testing performed by : [address] [address] MCHC 34.2 32.7 - 35.5 g/dL [facility] Comment:Testing performed by : [facility], [address] [place] [phone] RDW CV 13.5 11.8 - 14.6 % [facility] Comment:Testing performed by : [address] [address] NRBC abs 0.00 0.00 - 0.01 K/cumm [facility] Comment:Testing performed by : [facility], [address] [place] [phone] Blood 07/17/2021 1:58 PM OUTBOARD TECHNICIAN 07/17/2021 2:01 PM OUTBOARD TECHNICIAN Eren Cr MD LAB BLOOD ORDERABLES Final Re sult Performing Organization Address City/[facility]/ZIP Co de Phone Number [facility] [place], [place] [phone] * (ABNORMAL) Vitamin D 25 hydroxy (07/17/2021 1:58 PM OUTBOARD TECHNICIAN) [facility] Vitamin D 25-OH 26(L) 30 - 80 ng/mL [facility] Blood 07/17/2021 1:58 PM OUTBOARD TECHNICIAN 07/17/2021 2:16 PM OUTBOARD TECHNICIAN Eren Cr MD LAB BLOOD ORDERABLES Final Re sult Performing Organization Address [facility] Co de Phone Number [place], [place] [phone] * Phosphorus (07/17/2021 1:58 PM OUTBOARD TECHNICIAN) [facility] Phosphorus, pl 2.7 2.3 - 4.5 mg/dL [facility] Comment:Testing performed by : [facility], [address] [place] [phone] Blood 07/17/2021 1:58 PM OUTBOARD TECHNICIAN 07/17/2021 2:01 PM OUTBOARD TECHNICIAN Eren Cr MD LAB BLOOD ORDERABLES Final Re sult Performing Organization Address [facility] Co de Phone Number [facility] [place], [place] [phone] * (ABNORMAL) Lipid panel (07/17/2021 1:58 PM OUTBOARD TECHNICIAN) [facility] Cholesterol 184 30 - 199 mg/dL [facility] Comment: Interpretive Data Ages < or [...] revised on 2018. Triglycerides 314(H) <=149 mg/dL [facility] Comment: Interpretive Data Ages < or [...] revised on 2018. HDL 55 >=40 mg/dL [facility] Comment: Interpretive Data Ages < or [...] on 2018. LDL, calculated 66 <=129 mg/dL [facility] Comment: Interpretive Data Ages < or [...] revised on 2018. Non-HDL Cholesterol 129 mg/dL [facility] Comment: Interpretive Data Ages < or [...] last revised on 2018. Chol/HDL ratio 3 [facility] Blood 07/17/2021 1:58 PM OUTBOARD TECHNICIAN 07/17/2021 2:16 PM OUTBOARD TECHNICIAN us Eren Cr MD LAB BLOOD ORDERABLES Final Re sult [facility] Department [place] [address] * CT chest abdomen pelvis with contrast (06/22/2021 8:21 AM OUTBOARD TECHNICIAN) Anatomical Region Laterality Modality Body N/A Computed Tomogra phy 06/22/2021 9:47 AM OUTBOARD TECHNICIAN Impressions 06/22/2021 10:56 AM OUTBOARD TECHNICIAN 1. Stable hepatic, peritoneal/mesenteric, retroperitoneal and vaginal cuff metastases. Right supraclavicular and upper paratracheal lymph node, although prominent, remains suspicious for metastases. 2. Persistent linear enhancing soft tissue along the hepatic dome is favored to represent perihepatic serosal metastases likely from prior capsular breach of segment 7 subcapsular metastases. Dictated by: Jose De Jesus Osuna M.D. The radiology attending physician has personally reviewed this study, and had reviewed and/or edited this written report and agrees with it. Electronically signed by: Sergio Flores M.D. Narrative 06/22/2021 10:56 AM OUTBOARD TECHNICIAN EXAMINATION: ??Computed tomography of the chest, abdomen and pelvis with intravenous contrast HISTORY: 70-year-old woman with metastatic ileal well-differentiated neuroendocrine tumor, status post resection. TECHNIQUE: ??Transaxial computed tomographic images of the chest, abdomen and pelvis ??were obtained with intravenous contrast according to the standard protocol after the uneventful administration of 95 mL Opti-Ray 350 intravenous contrast. COMPARISON: Prior chest CT dated 05/15/2021 and abdominal MR dated 06/15/2021. FINDINGS: ?? Chest: Thyroid gland is normal. Stable subcentimeter enhancing round right supraclavicular and right upper right paratracheal lymph nodes, remains suspicious for metastases. No axillary or mediastinal lymphadenopathy. Apparent right subclavian artery is redemonstrated without any aneurysmal degeneration. 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 Mild diffuse calcific atherosclerosis of the thoracic aorta and its branches is seen without stenosis or aneurysm. Pulmonary artery and its branches are normal without filling defects. Heart size is normal. No pericardial or pleural effusion. Trachea and central airways are normal without wall thickening. Lungs are clear without suspicious pulmonary nodules or airspace consolidation. Mild dependent peripheral reticulation and interspersed groundglass opacities are significantly improved from prior's and may represent sequelae of prior infectious/inflammatory disease. Small periesophageal lymph nodes are noted in the right lung base. No pneumothorax is seen. Abdomen/Pelvis: Liver is normal in size with multiple hyperenhancing rounded lesions scattered throughout right and left hemiliver, better evaluated on recent MRI and essentially unchanged in size. For instance, segment 5/7 lesion measures 2.8 x 3.6 cm on table position -239.3, unchanged. Perihepatic enhancing soft tissue on hepatic dome is unchanged from multiple prior CT/MRI since July. Spleen, pancreas, bilateral adrenal glands are normal. Kidneys are symmetrically enhancing. Simple cyst in superior pole of right kidney is unchanged. Changes of previous right hemicolectomy and left lower quadrant colostomy/mucous fistula are redemonstrated. There are multiple peritoneal and mesenteric enhancing nodular deposits with some of them showing adjacent desmoplastic reaction. Largest nodule in the right vaginal cuff measures 1.8 x 1.8 cm on table position -497.3, unchanged when remeasured at this time on prior MR. Visualized bowel loops are normal . Bones are normal without aggressive osseous disease. Multiple other enhancing peritoneal nodules are also essentially unchanged. For instance, small mesenteric/peritoneal nodule in the left midabdomen on table position -299.3 measures 1.3 x 0.8 cm, unchanged. Nodular adjacent to the sigmoid colon measuring 0.9 x 1.2 cm on table position -439.3 showing adjacent retraction of the bowel serosa. Enlarged enhancing right para-aortic lymph nodes. For instance, right common iliac/para-aortic lymph node measures 1.5 x 1.1 cm on table position -369.3. Small nonenhancing area adjacent to the left mid ureter is present gallito soft tissue without a small utricular diverticulum. No hydronephrosis is seen. Procedure Note Sergio Flores MD - 06/22/2021 EXAMINATION: Computed tomography of the chest, abdomen and pelvis with intravenous contrast HISTORY: 70-year-old woman with metastatic ileal well-differentiated neuroendocrine tumor, status post resection. TECHNIQUE: Transaxial computed tomographic images of the chest, abdomen and pelvis were obtained with intravenous contrast according to the standard protocol after the uneventful administration of 95 mL Opti-Ray 350 intravenous contrast. COMPARISON: Prior chest CT dated 05/15/2021 and abdominal MR dated 06/15/2021. FINDINGS: Chest: Thyroid gland is normal. Stable subcentimeter enhancing round right supraclavicular and right upper right paratracheal lymph nodes, remains suspicious for metastases. No axillary or mediastinal lymphadenopathy. Apparent right subclavian artery is redemonstrated without any aneurysmal degeneration. 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 Mild diffuse calcific atherosclerosis of the thoracic aorta and its branches is seen without stenosis or aneurysm. Pulmonary artery and its branches are normal without filling defects. Heart size is normal. No pericardial or pleural effusion. Trachea and central airways are normal without wall thickening. Lungs are clear without suspicious pulmonary nodules or airspace consolidation. Mild dependent peripheral reticulation and interspersed groundglass opacities are significantly improved from prior's and may represent sequelae of prior infectious/inflammatory disease. Small periesophageal lymph nodes are noted in the right lung base. No pneumothorax is seen. Abdomen/Pelvis: Liver is normal in size with multiple hyperenhancing rounded lesions scattered throughout right and left hemiliver, better evaluated on recent MRI and essentially unchanged in size. For instance, segment 5/7 lesion measures 2.8 x 3.6 cm on table position -239.3, unchanged. Perihepatic enhancing soft tissue on hepatic dome is unchanged from multiple prior CT/MRI since July. Spleen, pancreas, bilateral adrenal glands are normal. Kidneys are symmetrically enhancing. Simple cyst in superior pole of right kidney is unchanged. Changes of previous right hemicolectomy and left lower quadrant colostomy/mucous fistula are redemonstrated. There are multiple peritoneal and mesenteric enhancing nodular deposits with some of them showing adjacent desmoplastic reaction. Largest nodule in the right vaginal cuff measures 1.8 x 1.8 cm on table position -497.3, unchanged when remeasured at this time on prior MR. Visualized bowel loops are normal . Bones are normal without aggressive osseous disease. Multiple other enhancing peritoneal nodules are also essentially unchanged. For instance, small mesenteric/peritoneal nodule in the left midabdomen on table position -299.3 measures 1.3 x 0.8 cm, unchanged. Nodular adjacent to the sigmoid colon measuring 0.9 x 1.2 cm on table position -439.3 showing adjacent retraction of the bowel serosa. Enlarged enhancing right para-aortic lymph nodes. For instance, right common iliac/para-aortic lymph node measures 1.5 x 1.1 cm on table position -369.3. Small nonenhancing area adjacent to the left mid ureter is present gallito soft tissue without a small utricular diverticulum. No hydronephrosis is seen. IMPRESSION: 1. Stable hepatic, peritoneal/mesenteric, retroperitoneal and vaginal cuff metastases. Right supraclavicular and upper paratracheal lymph node, although prominent, remains suspicious for metastases. 2. Persistent linear enhancing soft tissue along the hepatic dome is favored to represent perihepatic serosal metastases likely from prior capsular breach of segment 7 subcapsular metastases. Dictated by: Jose De Jesus Osuna M.D. The radiology attending physician has personally reviewed this study, and had reviewed and/or edited this written report and agrees with it. Electronically signed by: Sergio Flores M.D. Eren [...] [facility] CLINIC APPOINTMENT REQUEST 1 022 [facility] INJECTION APPOINTMENT REQUEST 07/08 [facility] LAB APPOINTMENT 1 07/17/2021 documented in this encounter Care Teams Traffic Control Operator Relationship Specialty Start Date End Date Julio César Briseno MD PCP - General 10/01/16 Eren Cr MD Referring Physician Medical Oncology 11/25/18 Yohana Bowen MD Radiation Oncologist Radiation Oncology 11/25/18 Sabrina Willard NP [address] [place] [address] Nurse Practitioner Medical Oncology 08/17/20 11/26/21 documented as of this encounter
--- OUTSIDE RECORDS SUMMARY | 2024-06-25 22:26 | XMS_ITS | Encounter Summary ---
Author Organization [facility], formerly [facility] Address [address] [facility] [address] [place] [address] Phone Care Team Providers Care Aerospace Manager Name Role Phone Julio César Briseno MD Primary Care Provider [phone] Eren Cr MD Unavailable [phone] Yohana Bowen MD Unavailable Sabrina Willard NP Unavailable [phone] Reason for Visit * Reason Comments Follow-up Encounter Details Date Type Department Care Team (Late st Contact Info) Description 05/22/2021 11:10 AM FERRYBOAT OPERATOR Office Visit [facility] Surgery [address] 5th [place] [address] [place] [address] Kyra Mitchell MD PhD [address] [facility] [phone] [place] [address] Nipple discharge in female (Primary Dx) Social [...] on file Legal Sex Female 2:41 PM 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 HPI: Patient is a 70 y.o. 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 She follows with medical oncology here. She reports having spontaneous right sided nipple discharge twice in the last six month. Once in September 2020 and once in November2020. She has crusty yellow material in her bra which is how she noticed the yellow nipple discharge. Otherwise she does not report constant unilateral nipple discharge. It is not bloody. She has no other breast complaints- no skin dimpling or masses. She had her mammogram and US which showed no abnormalities. 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 She also fell and had recent surgery on her wrist. She presents back today for 3 month follow up examination. She has had 3 additional episodes of crusting over the last 3 months. She has no other breast complaints. SCREEN EXAMINER HISTORY: Patient underwent menarche at age 11. She is and gave to her first child atthe age of 21. She has used oral contraceptives in the past and not currently using them . She has not used hormone replacement therapy in the past and not currently using any. She is post menopausal- unknown age. She had a hysterectomy at 37 and her ovaries removed at 68. She denies a history of biopsy/ surgeries to breast. Her bra size is 38C. Past Medical History: Diagnosis Date ??? Arthritis [...] ??? JOINT REPLACEMENT Left 2014 ? ? KS REMOVAL OF TONSILS,<12 Y/O Tonsillectomy - (Added by TW Conv) ??? KS TOTAL ABDOM HYSTERECTOMY Hysterectomy - (Added by TW Conv) Medications: HOME MEDICATIONS : albuterol HFA (PROVENTIL HFA,VENTOLIN HFA,PROAIR HFA) 90 mcg/actuation inhaler ascorbic acid, vitamin C, 500 mg capsule cholecalciferol (VITAMIN D-3) 2,000 unit capsule cholestyramine (QUESTRAN) 4 gram packet clotrimazole-betamethasone (LOTRISONE) cream coenzyme [id number] (CO Q-10, WITH VIT E,) 100-5 mg-unit capsule denosumab (XGEVA) 120 mg/1.7 mL (70 mg/mL) injection diphenoxylate-atropine (LOMOTIL) 2.5-0.025 mg per tablet doxycycline hyclate [address] (CYMBALTA) 30 mg capsule everolimus (AFINITOR) 10 mg tablet fluticasone propionate (FLONASE) 50 mcg/actuation nasal spray gabapentin (NEURONTIN) 600 mg tablet HYDROcodone-acetaminophen (NORCO) 5-325 mg per tablet loperamide HCl (IMODIUM A-D ORAL) montelukast (SINGULAIR) 10 mg tablet octreotide (SandoSTATIN) 50 mcg/mL (1 mL) syringe olmesartan-hydrochlorothiazide (BENICAR HCT) 20-12.5 mg per tablet ondansetron (ZOFRAN) 8 mg tablet ostomy supplies misc oxybutynin (DITROPAN) 5 mg tablet oxyCODONE (ROXICODONE) 5 mg immediate release tablet predniSONE (DELTASONE) 20 mg tablet simvastatin (ZOCOR) 20 mg tablet triamcinolone (KENALOG) 0.1 % ointment Allergies: Allergies Allergen Reactions ??? Morphine Blisters ??? Ezetimibe-Simvastatin Muscle pain and Unknown Muscle weakness ??? Ramipril Cough Social History Tobacco Use ??? Smoking status: Never Smoker ??? Smokeless tobacco: Never Used Substance Use Topics ??? Alcohol use: Yes Alcohol/week: 1.0 standard drink Types: 1 Shots of liquor per week Family History: Cancer-related family history includes Breast cancer (age of onset: 61) in her sister; Melanoma (age of onset: 30) in her daughter. Review of systems: Review of systems is negative other than complaints as documented above. Exam Vital signs: She is 5 ft 5 in tall and weighs 80.6 kg General: Well-developed and well-nourished. Neuro: Patient is awake and alert and cooperative. Psych: Appropriate mood and affect for this visit. HEENT: Normocephalic, atraumatic. Anicteric sclera, extraocular eye movements intact, hearing is grossly intact. Neck: Supple without overt masses or adenopathy. Respiratory: There is no obvious wheezing or dyspnea. No use of accessory muscles of respiration. Cardiovascular: Pulse is regular. No peripheral edema. No jugular venous distention. Gastrointestinal: Abdomen is soft without evidence of peritonitis. Lymphatics: There is no cervical, supraclavicular, or infraclavicular adenopathy. Skin: There are no worrisome skin lesions in the examined skin. Breasts: She has grade 2 ptosis. The breasts are normal in contour. Bra size 38C Right Breast: There is no obvious skin changes, dimpling, nor retraction. There is no palpable dominant mass. The nipple and areola are without erosion, ulceration, or obvious discharge. There is minimal crusting of the nipple. I could not elicit any discharge today. Examination of the axillary tail and contents shows no concerning mass or adenopathy. Left Breast: There is no obvious skin changes, dimpling, nor retraction. There is no palpable dominant mass. The nipple and areola are without erosion, ulceration, or obvious discharge. Examination of the axillary tail and contents shows no concerning mass or adenopathy. Lab/Radiology/Diagnostic Review: I personally reviewed the imaging. US Breast Right Limited Result Date: 01/23/2021 Narrative: EXAMINATION: BILATERAL DIGITAL DIAGNOSTIC MAMMOGRAM INCLUDING CAD AND BILATERAL DIGITAL BREAST TOMOSYNTHESIS; RIGHT BREAST SONOGRAM HISTORY: 70-year-old woman with greenish right nipple discharge of one month duration. The patient has a personal history of metastatic neuroendocrine tumorand a family history of bilateral breast cancer in her sister diagnosed at age 62. COMPARISON: Screening mammogram 12/21/2019, 01/27/2018 TECHNIQUE: Full field digital mammographic views of BOTH breasts were performed, including computer aided detection (CAD) and BILATERAL digital breast tomosynthesis (DBT). Directed ultrasound evaluation of the RIGHT breast was performed. BREAST PARENCHYMAL COMPOSITION: There are scattered areas of fibroglandular density. MAMMOGRAM FINDINGS: There is no suspicious abnormality in EITHER breast. SONOGRAM FINDINGS: Targeted sonographic evaluation of the right subareolar region was performed. The visualized ducts are normal in morphology with no evidence of ect renita. There is no focal abnormal solid or cystic lesion suggestive of malignancy in the area of recent concern. Impression: 1. No suspicious mammographic or sonographic findings to explain patient's symptoms of right nipple discharge. 2. No suspicious mammographic findings in EITHER breast. OVERALL FINAL ASSESSMENT: BI-RADS Category 1: Negative. Annual screening mammography is recommended. Continued clinicalfollow- up is recommended. Any further evaluation at this time, including decision to biopsy, shouldbe determined by clinical assessment. Dictated by: Edwin Darnell M.D. The radiologyattending physician has personally reviewed this study, and had reviewed and/or edited this writtenreport and agrees with it. Electronically signed by: DANA PIZARRO MD Diagnostic Mammogram Bilateral W Seng Result Date: 01/23/2021 Narrative: EXAMINATION: BILATERAL DIGITAL DIAGNOSTIC MAMMOGRAM INCLUDING CAD AND BILATERAL DIGITAL BREAST TOMOSYNTHESIS; RIGHT BREAST SONOGRAM HISTORY: 70-year-old woman with greenish right nipple discharge of one month duration. The patient has a personal history of metastatic neuroendocrine tumorand a family history of bilateral breast cancer in her sister diagnosed at age 62. COMPARISON: Screening mammogram 12/21/2019, 01/27/2018 TECHNIQUE: Full field digital mammographic views of BOTH breasts were performed, including computer aided detection (CAD) and BILATERAL digital breast tomosynthesis (DBT). Directed ultrasound evaluation of the RIGHT breast was performed. BREAST PARENCHYMAL COMPOSITION: There are scattered areas of fibroglandular density. MAMMOGRAM FINDINGS: There is no suspicious abnormality in EITHER breast. SONOGRAM FINDINGS: Targeted sonographic evaluation of the right subareolar region was performed. The visualized ducts are normal in morphology with no evidence of ect renita. There is no focal abnormal solid or cystic lesion suggestive of malignancy in the area of recent concern. Impression: 1. No suspicious mammographic or sonographic findings to explain patient's symptoms of right nipple discharge. 2. No suspicious mammographic findings in EITHER breast. OVERALL FINAL ASSESSMENT: BI-RADS Category 1: Negative. Annual screening mammography is recommended. Continued clinicalfollow- up is recommended. Any further evaluation at this time, including decision to biopsy, shouldbe determined by clinical assessment. ASSESSMENT 1. Right nipple discharge PLAN:La's right nipple discharge continues to be sporadic at this time. It has both benign and pathologic features. However, given the discharge is unilateral and spontaneous she will need follow up in the office in January 2022 with bilateral diagnostic mammogram to follow. Given her co-morbidities (current treatment of metasatatic ileal NET), will favor conservative management at this time. I answered all her questions today. She knows to call with questions. Thank you for the kind referral and opportunity to be involved in the care of La Chung. Pleasecall with questions. This note is dictated and transcribed by [employer]. Fruit Or Nut Farmer variances may occur. Despite proofreading, typographical errors may occur. Cc: Julio César Briseno MD YBOAT OPERATOR documented in this encounter Plan of Treatment Not on file documented as of this encounter Visit Diagnoses Diagnosis Nipple discharge in female- Primary documented in this encounter Discontinued Medications Medication Sig Discontinue Reason Start Date End Da te predniSONE (DELTASONE) 20 mg tablet TAKE 2 TABLETS BY MOUTH EVERY DAY FOR 5 DAYS Therapy completed 03/24/2021 05/22/2021 oxyCODONE (ROXICODONE) 5 mg immediate release tabletIndications:Pain Take 1 tablet (5 mg total) by mouth every 4 (four) hours as needed for pain Therapy completed 11/20/2020 05/22/2021 HYDROcodone-acetaminophe n (NORCO) 5-325 mg per tablet Therapy completed 11/20/2020 05/22/2021 documented as of this encounter Care Teams Aerospace Manager Relationship Specialty Start Date End Date Julio César Briseno MD PCP - General 10/01/16 Eren Cr MD Referring Physician Medical Oncology 11/25/18 Yohana Bowen MD Radiation Oncologist Radiation Oncology 11/25/18 Sabrina Willard NP [address] [place] [address] Nurse Practitioner Medical Oncology 08/17/20 11/26/21 documented as of this encounter
--- OUTSIDE RECORDS SUMMARY | 2024-06-25 22:26 | XMS_ITS | Encounter Summary ---
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) Procedures MD OCTREOTIDE INJECTION, DEPOT Octreotide 28 Day Cycles - Carcinoid Eren Cr MD [address] [facility] [address] [place] [address] Phone: tel: fax: [facility] [address] [address] Phone: tel: fax: Referral ID Status Reason Start Date Expiration Date V isits Requested Visits Authorized [id number] Authorized 11/28/2017 02/05/2025 1 150 Encounter Details Date Type Department Care Team (Late st Contact Info) Description 06/19/2021 2:30 PM RADIATION ONCOLOGY THERAPIST Lab [facility] [address] [facility] 7th [place] [address] [place] [phone] Neuroendocrine carcinoma (CMS/HCC) (HCC); Malignant neoplasm metastatic [...] on file Legal Sex Female 2:41 PM RADIATION ONCOLOGY THERAPIST Gender Identity Not on file Sexual Orientation Straight 02/19/2021 9: 29 AM CDT Occupation Industry Job Start Date Job End Date retired Not on file Not on file Not on file documented as of this encounter Plan of Treatment Not on file documented as of this encounter Procedures Procedure Name Priority Date/Time Associated Diagnosis Comments PROTEIN / CREATININE RATIO, URINE, RANDOM Routine 06/19/2021 7:00 PM RADIATION ONCOLOGY THERAPIST Neuro-endocrine carcinoma (CMS/HCC) (HCC) EGFR Routine 06/19/2021 6:45 PM RADIATION ONCOLOGY THERAPIST Neuroendocrine carcinoma (CMS/HCC) (HCC) THYROID FUNCTION CASCADE Routine 06/19/2021 6:45 PM RADIATION ONCOLOGY THERAPIST Neuroendocrine carcinoma (CMS/HCC) (HCC) APTT Routine 06/19/2021 6:45 PM RADIATION ONCOLOGY THERAPIST Neuroendocrine carcinoma (CMS/HCC) (HCC) PROTIME-INR Routine 06/19/2021 6:45 PM RADIATION ONCOLOGY THERAPIST Neuroendocrine carcinoma (CMS/HCC) (HCC) MAGNESIUM Routine 06/19/2021 6:45 PM RADIATION ONCOLOGY THERAPIST Neuroendocrine carcinoma (CMS/HCC) (HCC) CREATININE Routine 06/19/2021 6:45 PM RADIATION ONCOLOGY THERAPIST Neuroendocrine carcinoma (CMS/HCC) (HCC) EGFR STAT 06/19/2021 2:47 PM RADIATION ONCOLOGY THERAPIST 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) DIFFERENTIAL AUTO Routine 06/19/2021 2:4 7 PM RADIATION ONCOLOGY THERAPIST 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) CHROMOGRANIN A Routine 06/19/2021 2:47 PM RADIATION ONCOLOGY THERAPIST 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) CBC WITH AUTO DIFFERENTIAL Routine 06/19/2021 2:47 PM RADIATION ONCOLOGY THERAPIST 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) VITAMIN D 25 HYDROXY Routine 06/19/2021 2:47 PM RADIATION ONCOLOGY THERAPIST 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) PHOSPHORUS Routine 06/19/2021 2:47 PM RADIATION ONCOLOGY THERAPIST 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) LIPID PANEL Routine 06/19/2021 2:47 PM RADIATION ONCOLOGY THERAPIST 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) COMPREHENSIVE METABOLIC PANEL STAT 06/19/2021 2:47 PM RADIATION ONCOLOGY THERAPIST 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) documented in this encounter Results * Protein / creatinine ratio, urine, random (06/19/2021 7:00 PM RADIATION ONCOLOGY THERAPIST) Protein, ur, quant 12.5 mg/dL [facility] Comment: Interpretive Data No reference range established. Current interpretive data was last revised 2018. Creatinine Ur 166.6 mg/dL [facility] Comment: Interpretive Data No reference range established. Current interpretive data was last revised 2018. Protein/creatinin e ratio 75.0 0.0 - 180.0 mg/g CR [facility] Urine 06/19/2021 7:00 PM RADIATION ONCOLOGY THERAPIST 06/19/2021 7:22 PM RADIATION ONCOLOGY THERAPIST us Eren Cr MD LAB URINE ORDERABLES Final Re sult [facility] [address] [facility] [place] [address] * (ABNORMAL) eGFR (06/19/2021 6:45 PM RADIATION ONCOLOGY THERAPIST) eGFR 61(L) 90 - 130 mL/min/1. [address] [facility] Comment: Interpretive Data Reference Interval [...] interpretive data was last reviewed 2021. Blood 06/19/2021 6:45 PM RADIATION ONCOLOGY THERAPIST 06/19/2021 7:25 PM RADIATION ONCOLOGY THERAPIST Eren Cr MD LAB BLOOD ORDERABLES Final Re sult Performing Organization Address [facility] Co de Phone Number [facility] [place] [address] * TSH reflex to free T4 (06/19/2021 6:45 PM RADIATION ONCOLOGY THERAPIST) TSH 2.13 0.30 - 4.20 mcIUnit/mL [facility] Blood 06/19/2021 6:45 PM RADIATION ONCOLOGY THERAPIST 06/19/2021 7:10 PM RADIATION ONCOLOGY THERAPIST Eren Cr MD LAB BLOOD ORDERABLES Final Re sult Performing Organization Address [facility] de Phone Number [facility] [place] [address] * Magnesium (06/19/2021 6:45 PM RADIATION ONCOLOGY THERAPIST) Magnesium 1.9 1.4 - 2.5 mg/dL [facility] Blood 06/19/2021 6:45 PM RADIATION ONCOLOGY THERAPIST 06/19/2021 7:10 PM RADIATION ONCOLOGY THERAPIST Eren Cr MD LAB BLOOD ORDERABLES Final Re sult Performing Organization Address [facility] Co de Phone Number [facility] [place] [address] * Creatinine (06/19/2021 6:45 PM RADIATION ONCOLOGY THERAPIST) Creatinine 0.98 0.60 - 1.10 mg/dL [facility] Blood 06/19/2021 6:45 PM RADIATION ONCOLOGY THERAPIST 06/19/2021 7:10 PM RADIATION ONCOLOGY THERAPIST Eren Cr MD LAB BLOOD ORDERABLES Final Re sult Performing Organization Address [facility] de Phone Number [facility] [place] [address] * (ABNORMAL) aPTT (06/19/2021 6:45 PM RADIATION ONCOLOGY THERAPIST) aPTT 24(L) 27 - [address] [facility] Comment: Interpretive Data Therapeutic heparin range: 60.0 - 94.0 seconds. Based on correlation with therapeutic heparin activity range of 0.3-0.7 Units/mL. Current interpretive data was last revised on 2020. Blood 06/19/2021 6:45 PM RADIATION ONCOLOGY THERAPIST 06/19/2021 7:09 PM RADIATION ONCOLOGY THERAPIST Eren Cr MD LAB BLOOD ORDERABLES Final Re sult Performing Organization Address [facility] [place] [address] * Protime-INR (06/19/2021 6:45 PM RADIATION ONCOLOGY THERAPIST) PT 10.7 9.5 - 13.[address] [facility] INR 1.0 0.9 - 1.[address] [facility] Comment: Interpretive data Oral anticoagulant therapeutic ranges: Venous thromboembolism prophylaxis or treatment: 2.0-3.0 CARDIOLOGY Standard range: 2.0-3.0 High-intensity range: 2.5-3.5 Refer to indication-specific guidelines for appropriate target ranges for prosthetic heart valve replacement. Current interpretive data was last revised on 2019. Blood 06/19/2021 6:45 PM RADIATION ONCOLOGY THERAPIST 06/19/2021 7:09 PM RADIATION ONCOLOGY THERAPIST Eren Cr MD LAB BLOOD ORDERABLES Final Re sult Performing Organization Address [facility] Co de Phone Number [facility] [place] [address] * (ABNORMAL) eGFR (06/19/2021 2:47 PM RADIATION ONCOLOGY THERAPIST) Pathologist [facility] Department eGFR 62(L) 90 - 130 mL/min/1. 73 [...] was last reviewed 2021. Testing performed by: [facility], [address] [place] [phone] Blood 06/19/2021 2:47 PM RADIATION ONCOLOGY THERAPIST 06/19/2021 2:56 PM RADIATION ONCOLOGY THERAPIST us Eren Cr MD LAB BLOOD ORDERABLES Final Re sult [facility] [place] [address] * (ABNORMAL) Differential, auto (06/19/2021 2:47 PM RADIATION ONCOLOGY THERAPIST) Pathologist [facility] Neutrophil abs 5.2 1.8 - 6.6 K/cumm [facility] Comment:Testing performed by : [facility], [address] [place] [phone] Lymphocyte abs 0.6(L) 1.2 - 3.3 K/cumm [facility] Comment:Testing performed by : [facility], [address] [place] [phone] Monocyte abs 0.9 0.2 - 1.2 K/cumm [facility] Comment:Testing performed by : [facility], [address] [place] [phone] Eosinophil abs 0.1 0.0 - 0.5 K/cumm [facility] Comment:Testing performed by : [facility], [address] [place] [phone] Basophil abs 0.1 0.0 - 0.2 K/cumm [facility] Comment:Testing performed by : [facility], [address] [place] [phone] Neutrophil pct 75.3 % [facility] Comment: Interpretive Data Percent cell count reference ranges are not reported, since discordance with absolute values may lead to misinterpretation of CBC data. Current Interpretive Data was last revised on 2017. Testing performed by: [facility], [address] [place] [phone] Lymphocyte pct 8.9 % [facility] Comment: Interpretive Data Percent cell count reference ranges are not reported, since discordance with absolute values may lead to misinterpretation of CBC data. Current Interpretive Data was last revised on 2017. Testing performed by: [facility], [address] [place] [phone] Monocyte pct 13.6 % [facility] Comment:Testing performed by : [facility], [address] [place] [phone] Eosinophil pct 1.5 % [facility] Comment:Testing performed by : [facility], [address] [place] [phone] Basophil pct 0.7 % [facility] Comment:Testing performed by : [facility], [address] [place] [phone] Blood 06/19/2021 2:47 PM RADIATION ONCOLOGY THERAPIST 06/19/2021 2:56 PM RADIATION ONCOLOGY THERAPIST us Eren Cr MD LAB BLOOD ORDERABLES Final Re sult [facility] [place] [address] * (ABNORMAL) Lipid panel (06/19/2021 2:47 PM RADIATION ONCOLOGY THERAPIST) Cholesterol 168 30 - 199 mg/dL [facility] Comment: [...] on 2018. Triglycerides 193(H) <=149 mg/dL [facility] Comment: Interpretive Data Ages < or = [...] Data was last revised on 2018. HDL 64 >=40 mg/dL [facility] Comment: Interpretive Data Ages < or [...] on 2018. LDL, calculated 65 <=129 mg/dL [facility] [...] was last revised on 2018. Non-HDL Cholesterol 104 mg/dL [facility] Comment: Interpretive Data Ages < or [...] 2018. Chol/HDL ratio [address] [facility] Blood 06/19/2021 2:47 PM RADIATION ONCOLOGY THERAPIST 06/19/2021 4:41 PM RADIATION ONCOLOGY THERAPIST Eren Cr MD LAB BLOOD ORDERABLES Final Re sult Performing Organization Address City/[facility] Co de Phone Number [facility] [place] [address] * Phosphorus (06/19/2021 2:47 PM RADIATION ONCOLOGY THERAPIST) Pathologist [facility] Phosphorus, pl 2.8 2.3 - 4.5 mg/dL [facility] Comment:Testing performed by : [facility], [address] [place] [phone] Blood 06/19/2021 2:47 PM RADIATION ONCOLOGY THERAPIST 06/19/2021 2:56 PM RADIATION ONCOLOGY THERAPIST Result [facility] Eren Cr MD LAB BLOOD ORDERABLES Final Re sult Performing Organization Address City/[facility]/ZIP Co de Phone Number [facility] [place] [address] * (ABNORMAL) Vitamin D 25 hydroxy (06/19/2021 2:47 PM RADIATION ONCOLOGY THERAPIST) [facility] Vitamin D 25-OH 28(L) 30 - 80 ng/mL [facility] Blood 06/19/2021 2:47 PM RADIATION ONCOLOGY THERAPIST 06/19/2021 4:41 PM RADIATION ONCOLOGY THERAPIST Eren Cr MD LAB BLOOD ORDERABLES Final Re sult [facility] [place] [address] * (ABNORMAL) CBC with auto differential (06/19/2021 2:47 PM RADIATION ONCOLOGY THERAPIST) WBC 6.9 3.8 - 9.8 K/cumm [facility] Comment:Testing performed by : [facility], [address] [place] [phone] Hgb 14.4 12.1 - 15.1 g/dL [facility] Comment:Testing performed by : [address] [phone] Hct 42.1 36.1 - 44.3 % [facility] Comment:Testing performed by : [place] [phone] Plt 150 140 - 440 K/cumm [facility] Comment:Testing performed by : [facility], [address] [place] [phone] MPV 8.4 6.8 - 10.4 fL [facility] Comment:Testing performed by : [address] [phone] RBC 4.68 3.90 - 5.00 M/cumm [facility] Comment:Testing performed by : [place] [phone] MCV 90.0 80.0 - 97.6 fL [facility] Comment:Testing performed by : [facility], [address] [place] [phone] MCH 30.7 26.7 - 33.7 pg [facility] Comment:Testing performed by : [address] [phone] MCHC 34.2 32.7 - 35.5 g/dL [facility] Comment:Testing performed by : [address] [phone] RDW CV 15.6(H) 11.8 - 14.6 % [facility] Comment:Testing performed by : [facility], [address] [place] [phone] NRBC abs 0.00 0.00 - 0.01 K/cumm [facility] Comment:Testing performed by : [facility], [address] [place] [phone] Blood 06/19/2021 2:47 PM RADIATION ONCOLOGY THERAPIST 06/19/2021 2:56 PM RADIATION ONCOLOGY THERAPIST Eren Cr MD LAB BLOOD ORDERABLES Final Re sult [facility] [place] [address] * (ABNORMAL) Comprehensive metabolic panel (06/19/2021 2:47 PM RADIATION ONCOLOGY THERAPIST) Sodium 139 135 - 145 mmol/L [facility] Comment:Testing performed by : [facility], [address] [place] [phone] Potassium, pl 4.0 3.3 - 4.9 mmol/L [facility] Comment:Testing performed by : [facility], [address] [place] [phone] Chloride 104 97 - 110 mmol/L [facility] Comment:Testing performed by : [facility], [address] [place] [phone] CO2 26 22 - 32 mmol/L [facility] Comment:Testing performed by : [address] [phone] Anion gap 9 2 - 15 mmol/L [facility] Comment:Testing performed by : [facility], [address] [place] [phone] BUN 13 8 - 25 mg/dL [facility] Comment:Testing performed by : [facility], [address] [place] [phone] Creatinine 0.97 0.60 - 1.10 mg/dL [facility] Comment:Testing performed by : [facility], [address] [place] [phone] Glucose 107 70 - 199 mg/dL [facility] Comment: [...] was last revised 2017. Testing performed by: [facility], [address] [place] [phone] Calcium 10.9(H) 8.5 - 10.3 mg/dL [facility] Comment:Testing performed by : [address] [phone] Bilirubin, total 0.6 0.1 - 1.2 mg/dL [facility] Comment:Testing performed by : [address] [phone] Protein, pl 7.3 6.5 - 8.5 g/dL [facility] Comment:Testing performed by : [address] [phone] Albumin 4.6 3.5 - 5.0 g/dL [facility] Comment:Testing performed by : [address] [phone] Alk phos 96 40 - 130 Units/L [facility] Comment:Testing performed by : [address] [phone] ALT 13 7 - 45 Units/L [facility] Comment:Testing performed by : [address] [phone] AST 20 10 - 45 Units/L [facility] Comment:Testing performed by : [address] [phone] Blood 06/19/2021 2:47 PM RADIATION ONCOLOGY THERAPIST 06/19/2021 2:56 PM RADIATION ONCOLOGY THERAPIST Eren Cr MD LAB BLOOD ORDERABLES Final Re sult [facility] [place] [address] * (ABNORMAL) Chromogranin A (06/19/2021 2:47 PM RADIATION ONCOLOGY THERAPIST) Chromogranin A 1630(H) <93 ng/mL [facility] Comment: Impaired renal or hepatic function or treatment with proton pump inhibitors may result in artifactual elevations of Chromogranin A. ADDITIONAL INFORMATION This test was developed and its performance characteristics determined by [facility] in a manner consistent with CLIA requirements. This test has not been cleared or approved by the U.S. Food and Drug Administration. The testing method is a homogeneous time-resolved immunofluorescent assay manufactured by [employer] and performed on the [employer] Compact Plus. ? Values obtained with different assay methods or kits may be different and cannot be used interchangeably. ? Test results cannot be interpreted as absolute evidence for the presence or absence of malignant disease. Test Performed by: [place] [address] Spray Gun Repairer Helper: Immanuel Novak M.D. 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) Neuro-endocrine carcinoma (HCC) Other malignant neoplasm of unspecified site documented in this encounter Orders Appointment Requests Count Last Ordered Date Fi rst Ordered Date ONCBCN LAB APPOINTMENT 1 06/19/2021 documented in this encounter Care Teams Transportation Logistics Internship Relationship Specialty Start Date End Date Briseno, Julio César C., MD PCP - General 10/01/16 Eren Cr MD Referring Physician Medical Oncology 11/25/18 Yohana Bowen MD Radiation Oncologist Radiation Oncology 11/25/18 Sabrina Willard NP [address] [place] [phone] Nurse Practitioner Medical Oncology 08/17/20 11/26/21 documented as of this encounter
--- OUTSIDE RECORDS SUMMARY | 2024-06-25 22:26 | XMS_ITS | Encounter Summary ---
Author Organization [facility] Address [address] [place] [address] Phone Care Team Providers Care Telegraph Office Telephone Clerk Name Role Phone Julio César Briseno MD Primary Care Provider Eren Cr MD Unavailable [phone] Yohana Bowen MD Unavailable Sabrina Willard NP Unavailable [phone] Encounter Details Date Type Department Care Team (Late st Contact Info) Description 06/14/2021 Orders Only [facility] Oncology [address] [place] [address] Yoana Murray [facility] Social [...] file Legal Sex Female 2:41 PM RN POSTPARTUM Gender Identity Not on file Sexual Orientation Straight 02/19/2021 9: 29 AM CDT Occupation Industry Job Start Date Job End Date retired Not on file Not on file Not on file documented as of this encounter Plan of Treatment Not on file documented as of this encounter Visit Diagnoses Not on filedocumented in this encounter Care Teams Telegraph Office Telephone Clerk Relationship Specialty Start Date End Date Julio César Briseno MD PCP - General 10/01/16 Eren Cr MD Referring Physician Medical Oncology 11/25/18 Yohana Bowen MD Radiation Oncologist Radiation Oncology 11/25/18 Sabrina Willard NP [address] [place] [address] Nurse Practitioner Medical Oncology 08/17/20 11/26/21 documented as of this encounter
--- OUTSIDE RECORDS SUMMARY | 2024-06-25 22:26 | XMS_ITS | Encounter Summary ---
Author Organization [facility] Address [address] [place] [address] Phone Care Team Providers Care Automotive Sales Specialist Name Role Phone Julio César Briseno MD Primary Care Provider [phone] Eren Cr MD Unavailable Yohana Bowen MD Unavailable Sabrina Willard NP Unavailable Encounter Details Date Type Department Care Team (Late st Contact Info) Description 06/19/2021 Orders Only [facility] Oncology [address] [facility] 7th [place] [address] [place] [phone] Eren Cr MD [address] 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 Gender Identity Not on file Sexual Orientation Straight 02/19/2021 9: 29 AM CDT Occupation Industry Job Start Date Job End Date retired Not on file Not on file Not on file documented as of this encounter Plan of Treatment Not on file documented as of this encounter Visit Diagnoses Not on filedocumented in this encounter Care Teams Automotive Sales Specialist Relationship Specialty Start Date End Date Julio César Briseno MD PCP - General 10/01/16 Eren Cr MD Referring Physician Medical Oncology 11/25/18 Yohana Bowen MD Radiation Oncologist Radiation Oncology 11/25/18 Sabrina Willard NP [address] [place] [address] Nurse Practitioner Medical Oncology 08/17/20 11/26/21 documented as of this encounter
--- OUTSIDE RECORDS SUMMARY | 2024-06-25 22:26 | XMS_ITS | Encounter Summary ---
Author Organization [facility] Address [address] [place] [address] Phone Care Team Providers Care Farmworker Diversified Crops Name Role Phone Julio César Briseno MD Primary Care Provider Eren Cr MD Unavailable [phone] Yohana Bowen MD Unavailable Sabrina Willard NP Unavailable [phone] Reason for Visit * Reason Comments Skin Exam Encounter Details Date Type Department Care Team (Late st Contact Info) Description 05/12/2021 1:00 PM CDT Office Visit [facility] Dermatology [address] [facility] [address] [place] [address] Po Newberry MD PhD [address] [place] [address] [phone] Bagley angioma (Primary Dx); Dilated pore of Morenita; Nevus, non-neoplastic; Solar lentigo; Xerosis cutis; Family history of melanoma Social History Tobacco Use Types Packs/Day Years [...] on file Legal Sex Female 2:41 PM COTTAGE ATTENDANT Gender Identity Not on file Sexual Orientation Straight 02/19/2021 9: 29 AM CDT Occupation Industry Job Start Date Job End Date retired Not on file Not on file Not on file documented as of this encounter Progress Notes * Loc Riley MD - 05/12/2021 1:00 PM CDT Dermatology Clinic Note CC: FBSE HPI: La Chung is a 70 y.o. female w/ history of metastatic neuroendocrine cancer, no personal hx of skin cancer, but FH of melanoma who presents for evaluation/management of FBSE. Today: She would like to know what 3 spots on her body are. Her had marked them for her. One is behind the left ear, two on the back. Denies any symptoms or growth of the lesions @ [facility] 1 year ago - biopsied 2 lesions (right posterior shoulder and chest) that were benign lichenoid keratosis. Skin Cancer History: Personal hx: None Family hx: Daughter w/ melanoma Sunscreen usage: Daily Otherwise, she has not noticed any non-healing sores, new/changing moles, or rashes. Other History: Medications and allergies reviewed in chart Past medical, family, and social history reviewed and noncontributory unless noted in HPI. ROS: As noted in HPI, otherwise: Constitutional: No fever, no chills, no unintended weight loss Neurological: No headaches, no dizziness, no vision changes Cardiovascular: No chest pain, no palpitations Respiratory: No shortness of breath, no coughing Psychiatric: No mood changes Lymphatic: No swollen lymph nodes Hematology: No easy bruising Integument: No rash, no itching, no non-healing sores, no new/changing moles Oral: No mouth sores or lesions Musculoskeletal: No joint stiffness, no joint pain Gastrointestinal: No nausea, no vomiting, no diarrhea, no abdominal pain PHYSICAL EXAM: GENERAL: Well-developed and well-nourished. No acute distress. NEURO: Alert and oriented x3. PSYCH: Appropriate affect. SKIN: Red 1 mm papule on the left postauricular skin Dilated pore with keratotic debris on the central back Fleshy pink papule on the central back Reticulated brown macules scattered on the trunk Otherwise: FACE: No abnormalities noted. EARS: No abnormalities noted. SCALP/HAIR: No abnormalities noted. EYES/EYELIDS: No scleral icterus. No abnormalities noted of conjunctiva or eyelids. LIPS: No abnormalities noted. NECK: No abnormalities noted. CHEST: No abnormalities noted. BACK: No abnormalities noted. ABDOMEN: No abnormalities noted. EXTREMITIES (RUE): No abnormalities noted. EXTREMITIES (LUE): No abnormalities noted. EXTREMITIES (RLE): No abnormalities noted. EXTREMITIES (LLE): No abnormalities noted. DIGITS/NAILS: No cyanosis, clubbing, or nail abnormality. ASSESSMENT AND PLAN: #Bagley Angioma #Dilated Pore of Morenita #Nevus #Solar Lentigenes - Benign reassurance was given - No treatment is indicated at this time - Pt was instructed to return if symptoms develop #Xerosis Cutis - recommend daily moisturizer # Family History of Melanoma - No concerning lesions on exam today - Photoprotection encouraged - Patient was instructed to seek care if concerning skin changes develop - The warning signs of skin cancer were reviewed with emphasis on evolving lesions - Recommended regular MD skin checks RTC in 1 year Signed Loc Riley MD Dermatology Resident, PGY-2 [facility] May 12, 2021 Cosigned by Po Newberry MD PhD at 05/15/2021 8:35 PM COTTAGE ATTENDANT AGE ATTENDANT AGE ATTENDANT Associated attestation - Po Newberry MD PhD - 05/15/2021 8:35 PM COTTAGE ATTENDANT I have seen and examined the patient. I agree with the findings and plan of care as discussed with the resident/fellow. documented in this encounter Plan of Treatment Not on file documented as of this encounter Visit Diagnoses Diagnosis Bagley angioma- Primary Dilated pore of Morenita Nevus, non-neoplastic Solar lentigo Other dyschromia Xerosis cutis Other specified disease of sebaceous glands Family history of melanoma Family history of other specified malignant neoplasm documented in this encounter Care Teams Farmworker Diversified Crops Relationship Specialty Start Date End Date Julio César Briseno MD PCP - General 10/01/16 Eren Cr MD Referring Physician Medical Oncology 11/25/18 Yohana Bowen MD Radiation Oncologist Radiation Oncology 11/25/18 Sabrina Willard NP [address] [place] [address] Nurse Practitioner Medical Oncology 08/17/20 11/26/21 documented as of this encounter
--- OUTSIDE RECORDS SUMMARY | 2024-06-25 22:26 | XMS_ITS | Encounter Summary ---
Author Organization [facility] Address [address] [place] [address] Phone Care Team Providers Care Vending Service Technician Name Role Phone Julio César Briseno MD Primary Care Provider [phone] Eren Cr MD Unavailable Yohana Bowen MD Unavailable Sabrina Willard NP Unavailable Encounter Details Date Type Department Care Team (Late st Contact Info) Description 06/19/2021 Orders Only [facility] Oncology [address] [facility] [address] 7th [place] [address] [place] [id number] Eren Cr MD [address] [facility] [address] [place] [address] Social History Tobacco Use Types Packs/Day Years [...] on file Legal 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 Gender Identity Not on file Sexual Orientation Straight 02/19/2021 9: 29 AM CDT Occupation Industry Job Start Date Job End Date retired Not on file Not on file Not on file documented as of this encounter Plan of Treatment Not on file documented as of this encounter Visit Diagnoses Not on filedocumented in this encounter Care Teams Vending Service Technician Relationship Specialty Start Date End Date Julio César Briseno MD PCP - General 10/01/16 Eren Cr MD Referring Physician Medical Oncology 11/25/18 Yohana Bowen MD Radiation Oncologist Radiation Oncology 11/25/18 Sabrina Willard NP [address] [place] [address] Nurse Practitioner Medical Oncology 08/17/20 11/26/21 documented as of this encounter
--- OUTSIDE RECORDS SUMMARY | 2024-06-25 22:26 | XMS_ITS | Encounter Summary ---
Author Organization [facility] Address [address] [place] [address] Phone Care Team Providers Care Diesel Engine Ii Pipe Fitter Name Role Phone Julio César Briseno MD Primary Care Provider [phone] Eren Cr MD Unavailable [phone] Yohana Bowen MD Unavailable Sabrina Willard NP Unavailable Encounter Details Date Type Department Care Team (Late st Contact Info) Description 05/24/2021 Orders Only [facility] Oncology [address] [facility] [address] Medicine [address]th [place] [address] [place] [phone] Eren Cr MD [address] [facility] [address] [place] [address] Social History Tobacco Use Types Packs/Day Years [...] on file Legal Sex Female 2:41 PM CURB SETTER HELPER Gender Identity Not on file Sexual Orientation Straight 02/19/2021 9: 29 AM CDT Occupation Industry Job Start Date Job End Date retired Not on file Not on file Not on file documented as of this encounter Ordered Prescriptions Prescription Sig Dispense Quantity Refills Last Filled Start Date End Date potassium, sodium phosphates (PHOS-NAK) 280-160-250 mg powder in packet Take 1 packet by mouth 4 (four) times a day 120 packet 1 05/24/2021 11/13/2021 documented in this encounter Plan of Treatment Not on file documented as of this encounter Visit Diagnoses Not on filedocumented in this encounter Care Teams Diesel Engine Ii Pipe Fitter Relationship Specialty Start Date End Date Julio César Briseno MD PCP - General 10/01/16 Eren Cr MD Referring Physician Medical Oncology 11/25/18 Yohana Bowen MD Radiation Oncologist Radiation Oncology 11/25/18 Sabrina Willard NP [address] [place] [address] Nurse Practitioner Medical Oncology 08/17/20 11/26/21 documented as of this encounter
--- OUTSIDE RECORDS SUMMARY | 2024-06-25 22:26 | XMS_ITS | Encounter Summary ---
Author Organization [facility] Address [address] [place] [address] Phone Care Team Providers Care Dough Maker Name Role Phone Julio César Briseno MD Primary Care Provider [phone] Eren Cr MD Unavailable [phone] Yohana Bowen MD Unavailable Sabrina Willard NP Unavailable [phone] Encounter Details Date Type Department Care Team (Late st Contact Info) Description 06/19/[address] [facility] Oncology [address] [facility] Advanced Medicine 7th [place] [address] [place] [address] Roshni Gutierrez CMA Neuro-endocrine carcinoma [...] on file Legal Sex Female 2:41 PM VISCERA WASHER Gender Identity Not on file Sexual Orientation Straight 02/19/2021 9: 29 AM CDT Occupation Industry Job Start Date Job End Date retired Not on file Not on file Not on file documented as of this encounter Plan of Treatment Scheduled Orders Name Type Priority Associated Diagnoses Orde r Schedule PT+PTT+INR Lab Routine Neuro-endocrine carcinoma (CMS/HCC) (HCC) Expected: 06/19/2021, Expires: 06/19/2022 documented as of this encounter Results * Protein / creatinine ratio, urine, random (06/19/2021 7:00 PM VISCERA WASHER) Protein, ur, quant 12.5 mg/dL [facility] Comment: Interpretive Data No reference range established. Current interpretive data was last revised 2018. Creatinine Ur 166.6 mg/dL [facility] Comment: Interpretive Data No reference range established. Current interpretive data was last revised 2018. Protein/creatinin e ratio 75.0 0.0 - 180.0 mg/g CR [facility] Urine 06/19/2021 7:00 PM VISCERA WASHER 06/19/2021 7:22 PM VISCERA WASHER Eren Cr MD LAB URINE ORDERABLES Final Re sult [facility] [place] [address] documented in this encounter Visit Diagnoses Diagnosis Neuro-endocrine carcinoma (HCC)- Primary Other malignant neoplasm of unspecified site documented in this encounter Care Teams Dough Maker Relationship Specialty Start Date End Date Julio César Briseno MD PCP - General 10/01/16 Eren Cr MD Referring Physician Medical Oncology 11/25/18 Yohana Bowen MD Radiation Oncologist Radiation Oncology 11/25/18 Sabrina Willard, CECILIA [address] [place] [address] Nurse Practitioner Medical Oncology 08/17/20 11/26/21 documented as of this encounter
--- OUTSIDE RECORDS SUMMARY | 2024-06-25 22:26 | XMS_ITS | Encounter Summary ---
Author Organization [facility] Address [address] [place] [address] Phone Care Team Providers Care Loan Closer Name Role Phone Julio César Briseno MD Primary Care Provider [phone] Eren Cr MD Unavailable [phone] Yohana Bowen MD Unavailable Sabrina Willard NP Unavailable [phone] 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) Procedures CT OCTREOTIDE INJECTION, DEPOT Octreotide 28 Day Cycles - Carcinoid Eren Cr MD [address] [facility] [address] [place] [address] Phone: tel: fax: [facility] [address] [address] Phone: tel: fax: Referral ID Status Reason Start Date Expiration Date V isits Requested Visits Authorized [id number] Authorized 11/28/2017 02/05/2025 1 150 Encounter Details Date Type Department Care Team (Late st Contact Info) Description 05/22/2021 2:30 PM [facility] [address] [facility] 7th [place] [address] [place] [phone] Neuroendocrine carcinoma (CMS/HCC) (HCC); Malignant neoplasm metastatic [...] on file Legal Sex Female 2:41 PM CANDY DIPPER Gender Identity Not on file Sexual Orientation Straight 02/19/2021 9: 29 AM CDT Occupation Industry Job Start Date Job End Date retired Not on file Not on file Not on file documented as of this encounter Plan of Treatment Not on file documented as of this encounter Procedures Procedure Name Priority Date/Time Associated Diagnosis Comments EGFR STAT 05/22/2021 2:48 PM CANDY DIPPER 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) DIFFERENTIAL AUTO Routine 05/22/2021 2:4 8 PM CANDY DIPPER 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) CHROMOGRANIN A Routine 05/22/2021 2:48 PM CANDY DIPPER 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) CBC WITH AUTO DIFFERENTIAL Routine 05/22/2021 2:48 PM CANDY DIPPER 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) VITAMIN D 25 HYDROXY Routine 05/22/2021 2:48 PM CANDY DIPPER 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) PHOSPHORUS Routine 05/22/2021 2:48 PM CANDY DIPPER 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) LIPID PANEL Routine 05/22/2021 2:48 PM CANDY DIPPER 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) COMPREHENSIVE METABOLIC PANEL STAT 05/22/2021 2:48 PM CANDY DIPPER 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) documented in this encounter Results * (ABNORMAL) eGFR (05/22/2021 2:48 PM CANDY DIPPER) [facility] eGFR 66(L) 90 - 130 mL/min/1.7 3 m2 JASON BLACK Comment: Interpretive Data Reference [...] was last reviewed 2020 Testing performed by: [facility], [address], [place] [address] Blood 05/22/2021 2:48 PM CANDY DIPPER 05/22/2021 2:50 PM CANDY DIPPER us Eren Cr MD LAB BLOOD ORDERABLES Final Re sult [facility] Department [place] [address] * (ABNORMAL) Differential, auto (05/22/2021 2:48 PM CANDY DIPPER) Neutrophil abs 3.2 1.8 - 6.6 K/cumm CERNER BJ Comment:Testing performed by : [facility], [address] [place] [phone] Lymphocyte abs 0.5(L) 1.2 - 3.3 K/cumm CERNER BJ Comment:Testing performed by : [facility], [address] [place] [phone] Monocyte abs 0.5 0.2 - 1.2 K/cumm CERNER BJ Comment:Testing performed by : [facility], [address] [place] [phone] Eosinophil abs 0.1 0.0 - 0.5 K/cumm CERNER BJ Comment:Testing performed by : [facility], [address] [place] [phone] Basophil abs 0.0 0.0 - 0.2 K/cumm CERNER BJ Comment:Testing performed by : [facility], [address] [place] [phone] Neutrophil pct 75.0 % CERNER BJ Comment: Interpretive Data Percent cell count reference ranges are not reported, since discordance with absolute values may lead to misinterpretation of CBC data. Current Interpretive Data was last revised on 2017. Testing performed by: [facility], [address] [place] [phone] Lymphocyte pct 11.2 % CERNER BJ Comment: Interpretive Data Percent cell count reference ranges are not reported, since discordance with absolute values may lead to misinterpretation of CBC data. Current Interpretive Data was last revised on 2017. Testing performed by: [facility], [address] [facility] [phone] Monocyte pct 10.7 % JASON BLACK Comment:Testing performed by : [facility], [address] [facility] [phone] Eosinophil pct 2.4 % JASON BLACK Comment:Testing performed by : [facility], [facility] [address] Basophil pct 0.7 % JASON BLACK Comment:Testing performed by : [facility], [address] [place] [phone] Blood 05/22/2021 2:48 PM CANDY DIPPER 05/22/2021 2:50 PM CANDY DIPPER us Eren Cr MD LAB BLOOD ORDERABLES Final Re sult JASON [facility] Department [place] [address] * (ABNORMAL) Lipid panel (05/22/2021 2:48 PM CANDY DIPPER) Cholesterol 174 30 - 199 mg/dL JASON LBACK Comment: Interpretive Data Ages < or = [...] Data was last revised on 2018. Triglycerides 215(H) <=149 mg/dL JASON BLACK Comment: Interpretive Data [...] revised on 2018. HDL 62 >=40 mg/dL [facility] Comment: Interpretive Data [...] was last revised on 2018. LDL, calculated 69 <=129 mg/dL JASON [facility] Comment: Interpretive Data Ages < or [...] on 2018. Non-HDL Cholesterol 112 mg/dL JASON [facility] Comment: Interpretive Data Ages < or [...] revised on 2018. Chol/HDL ratio 3 JASON [facility] Blood 05/22/2021 2:48 PM CANDY DIPPER 05/22/2021 3:08 PM CANDY DIPPER Eren Cr MD LAB BLOOD ORDERABLES Final Re sult [facility] Department [place] [address] * (ABNORMAL) Phosphorus (05/22/2021 2:48 PM CANDY DIPPER) Phosphorus, pl 2.0(L) 2.3 - 4.5 mg/dL JASON [facility] Comment:Testing performed by : [facility], [address] [place] [phone] Blood 05/22/2021 2:48 PM CANDY DIPPER 05/22/2021 2:50 PM CANDY DIPPER Eren Cr MD LAB BLOOD ORDERABLES Final Re sult [facility] [place] [address] * (ABNORMAL) Vitamin D 25 hydroxy (05/22/2021 2:48 PM CANDY DIPPER) [facility] Vitamin D 25-OH 27(L) 30 - 80 ng/mL [facility] Blood 05/22/2021 2:48 PM CANDY DIPPER 05/22/2021 3:08 PM CANDY DIPPER Eren Cr MD LAB BLOOD ORDERABLES Final Re sult Performing Organization Address [facility] Co de Phone Number [facility] [place] [address] * (ABNORMAL) CBC with auto differential (05/22/2021 2:48 PM CANDY DIPPER) [facility] WBC 4.2 3.8 - 9.8 K/cumm JASON [facility] Comment:Testing performed by : [facility], [address] [place] [phone] Hgb 12.4 12.1 - 15.1 g/dL JASON [facility] Comment:Testing performed by : [facility], [address] [place] [phone] Hct 35.9(L) 36.1 - 44.3 % [facility] Comment:Testing performed by : [facility], [address] [place] [phone] Plt 151 140 - 440 K/cumm [facility] Comment:Testing performed by : [facility], [address] [place] [phone] MPV 7.5 6.8 - 10.4 fL JASON [facility] Comment:Testing performed by : [facility], [address] [place] [phone] RBC 3.98 3.90 - 5.00 M/cumm JASON [facility] Comment:Testing performed by : [facility], [address] [place] [phone] MCV 90.1 80.0 - 97.6 fL JASON BLACK Comment:Testing performed by : [facility], [address] [place] [phone] MCH 31.1 26.7 - 33.7 pg JASON BLACK Comment:Testing performed by : [facility], [address] [place] [phone] MCHC 34.5 32.7 - 35.5 g/dL JASON BLACK Comment:Testing performed by : [facility], [address] [place] [phone] RDW CV 18.1(H) 11.8 - 14.6 % JASON BLACK Comment:Testing performed by : [facility], [address] [place] [phone] NRBC abs 0.01 0.00 - 0.01 K/cumm JASON BLACK Comment:Testing performed by : [facility], [address] [place] [phone] Blood 05/22/2021 2:48 PM CANDY DIPPER 05/22/2021 2:50 PM CANDY DIPPER us Eren Cr MD LAB BLOOD ORDERABLES Final Re sult JASON BLACK [facility] Department [place] [address] * Comprehensive metabolic panel (05/22/2021 2:48 PM CANDY DIPPER) Sodium 140 135 - 145 mmol/L JASON BLACK Comment:Testing performed by : [facility], [address] [place] [phone] Potassium, pl 3.7 3.3 - 4.9 mmol/L JASON BLACK Comment:Testing performed by : [facility], [address] [place] [phone] Chloride 106 97 - 110 mmol/L JASON BLACK Comment:Testing performed by : [address] [phone] CO2 28 22 - 32 mmol/L JASON BLACK Comment:Testing performed by : [facility], [address] [place] [phone] Anion gap 6 2 - 15 mmol/L CERNER BJ Comment:Testing performed by : [facility], [address] [place] [phone] BUN 8 8 - 25 mg/dL CERNER BJ Comment:Testing performed by : [facility], [address] [place] [phone] Creatinine 0.88 0.60 - 1.10 mg/dL CERNER BJ Comment:Testing performed by : [facility], [address] [place] [phone] Glucose 131 70 - 199 mg/dL CERNER BJ Comment: [...] was last revised 2017. Testing performed by: [facility], [address] [place] [phone] Calcium 10.1 8.5 - 10.3 mg/dL CERNER BJ Comment:Testing performed by : [address] [phone] Bilirubin, total 0.5 0.1 - 1.2 mg/dL CERNER BJ Comment:Testing performed by : [address] [phone] Protein, pl 6.6 6.5 - 8.5 g/dL CERNER BJ Comment:Testing performed by : [address] [phone] Albumin 4.2 3.5 - 5.0 g/dL CERNER BJ Comment:Testing performed by : [address] [phone] Alk phos 82 40 - 130 Units/L CERNER BJ Comment:Testing performed by : [facility], [address] [facility] [phone] ALT 16 7 - 45 Units/L JASON BLACK Comment:Testing performed by : [facility], [address] [facility] [phone] AST 25 10 - 45 Units/L JASON [facility] Comment:Testing performed by : [facility], [address] [place] [phone] Blood 05/22/2021 2:48 PM CANDY DIPPER 05/22/2021 2:50 PM CANDY DIPPER us Eren Cr MD LAB BLOOD ORDERABLES Final Re sult JASON [facility] Department [place] [address] * (ABNORMAL) Chromogranin A (05/22/2021 2:48 PM CANDY DIPPER) Chromogranin A 1083(H) <93 ng/mL JASON BLACK Comment: Impaired renal or hepatic function or treatment with proton pump inhibitors may result in artifactual elevations of Chromogranin A. ADDITIONAL INFORMATION This test was developed and its performance characteristics determined by [facility] in a manner consistent with CLIA requirements. This test has not been cleared or approved by the U.S. Food and Drug Administration. The testing method is a homogeneous time-resolved immunofluorescent assay manufactured by [employer] and performed on the Aug[employer] Kryptor Compact Plus. ? Values obtained with different assay methods or kits may be different and cannot be used interchangeably. ? Test results cannot be interpreted as absolute evidence for the presence or absence of malignant disease. Test Performed by: [address] [address] [place] Architect: Immanuel Novak M.D. Ph.D.; CLIA# [id number] Blood 05/22/2021 2:48 PM CANDY DIPPER 05/22/2021 5:59 PM CANDY DIPPER us Eren Cr MD LAB BLOOD ORDERABLES Final Re sult [facility] Department [place] [address] documented in this encounter Visit Diagnoses Diagnosis Neuroendocrine carcinoma (HCC) Other malignant neoplasm of unspecified site Malignant neoplasm metastatic to liver (HCC) documented in this encounter Orders Appointment Requests Count Last Ordered Date Fi rst Ordered Date ONCBCN LAB APPOINTMENT 1 05/22/2021 documented in this encounter Care Teams Loan Closer Relationship Specialty Start Date End Date Julio César Briseno MD PCP - General 10/01/16 Eren Cr MD Referring Physician Medical Oncology 11/25/18 Yohana Bowen MD Radiation Oncologist Radiation Oncology 11/25/18 Sabrina Willard NP [address] [place] [address] Nurse Practitioner Medical Oncology 08/17/20 11/26/21 documented as of this encounter
--- OUTSIDE RECORDS SUMMARY | 2024-06-25 22:26 | XMS_ITS | Encounter Summary ---
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 metastasis Neuroendocrine carcinoma (HCC) Procedures MRI Abdomen Pelvis W WO Contrast Eren Cr MD [address] [place] [address] Phone: tel: fax: [address] [phone] Referral ID Status Reason Start Date Expiration Date Visits Re quested Visits Authorized [id number] Closed 05/22/2021 06/21/2022 1 1 INAL PRESS OPERATOR 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) Procedures [place] OCTREOTIDE INJECTION, DEPOT Octreotide 28 Day Cycles - Carcinoid Eren Cr MD [address] [facility] [address] [place] [address] Phone: tel: fax: [address] [address] Phone: tel: fax: Referral ID Status Reason Start Date Expiration Date V isits Requested Visits Authorized [id number] Authorized 11/28/2017 02/05/2025 1 150 Encounter Details Date Type Department Care Team (Late st Contact Info) Description 05/22/2021 3:00 PM TERMINAL PRESS OPERATOR Office Visit [facility] Oncology [facility] 7th [place] [address] [place] [address] Eren Cr MD [address] [facility] [address] [facility] [place] [address] Malignant neoplasm metastatic to liver (CMS/HCC) (HCC) (Primary Dx); Neuro-endocrine carcinoma (CMS/HCC) (HCC); Bone metastasis (CMS/HCC) (HCC); Neuroendocrine carcinoma (CMS/HCC) (HCC) Social [...] on file Legal Sex Female 2:41 PM TERMINAL PRESS OPERATOR Gender Identity Not on file Sexual Orientation Straight 02/19/2021 9: 29 AM CDT Occupation Industry Job Start Date Job End Date retired Not on file Not on file Not on file documented as of this encounter Last Filed Vital Signs Vital Sign Reading Time Taken Comments Blood Pressure 158/83 05/22/2021 3:16 PM TERMINAL PRESS OPERATOR Pulse 77 05/22/2021 3:16 PM TERMINAL PRESS OPERATOR Temperature 36.3 ??C (97.4 ??F) 05/22/2021 3:16 PM CS T Respiratory Rate 16 05/22/2021 3:16 PM TERMINAL PRESS OPERATOR Oxygen Saturation 97% 05/22/2021 3:16 PM TERMINAL PRESS OPERATOR Inhaled Oxygen Concentration - - Weight 80.6 kg (177 lb 9.6 oz) 05/22/2021 3:16 P M TERMINAL PRESS OPERATOR Height - - Body Mass Index 29.55 03/23/2021 4:54 PM CDT documented in this encounter Progress Notes * Sabrina Willard SONG AND DANCE PERFORMER - 05/22/2021 3:00 PM CST MEDICAL ONCOLOGY OUTPATIENT ROV NOTE La Schwarz Robertocande : 1950 DATE OF VISIT: 05/22/21 Oncology History Overview Note TREATMENT HISTORY: 1. [...] time, she also underwent right colectomy in [facility] OR by Dr. Greyson Reeves. Biopsy [...] Afinitor 10 mg PO daily + monthly Octreotide Neuroendocrine carcinoma (CMS/HCC) (HCC) 10/03/2015 Initial Diagnosis Neuroendocrine carcinoma (CMS/HCC) Malignant neoplasm metastatic to liver (CMS/HCC) (HCC) 04/09/2017 Initial Diagnosis Malignant neoplasm metastatic to liver (CMS/HCC) INTERVAL HISTORY: La Chung is here today for follow up visit for diagnosis of metastatic neuroendocrine tumor who presents for follow-up routine oncologic care. She had been off her everolimus since March. CTscan 05/15/2021 notes improved inflammation. No cough or SOB out of the norm today. Is taking PRN tylenol for intermittent ostomy pain. Stopped taking gabapentin. Continues with PRN loose stool from stoma. Patient denies fever, chill, cough, SOB, rash, pain, N/V, constipation, swelling or bleeding. ALLERGIES: Allergies Allergen Reactions ??? Morphine Blisters ??? Ezetimibe-Simvastatin Muscle pain and Unknown Muscle weakness ??? Ramipril Cough ROS: A complete review of systems was performed and was negative other than those mentioned in the aboveinterval history. All other systems negative. OBJECTIVE: Most Recent Vitals: BP: 158/83 Temp: 36.3 ??C (97.4 ??F) Temp src: Transdermal Pulse: 77 Resp: 16 SpO2: 97 % Weight: 80.6 kg (177 lb 9.6 oz) PHYSICAL EXAM: ECOG PS: [...] No rashes over exposed skin NEURO: A&Ox4, shower maid grossly intact by conversation, moving all extremities well, no focal deficits appreciated PSYCH: Mood euthymic, affect appropriate and congruent, speech clear and goal-directed LABS: All laboratories personally reviewed and discussed with patient during office visit, selected values included below. Lab Results Component Value Date WBC 4.2 05/22/2021 HGB 12.4 05/22/2021 HCT 35.9 (L) 05/22/2021 MCV 90.1 05/22/2021 LABPLAT 151 05/22/2021 NEUTROABS 3.2 05/22/2021 CMP: Lab Results Component Value Date/Time SODIUM 140 05/22/2021 02:48 PM POTASSIUM 3.7 05/22/2021 02:48 PM CO2 28 05/22/2021 02:48 PM BUNSER 8 05/22/2021 02:48 PM GLUCOSE 131 05/22/2021 02:48 PM CREATININE 0.88 05/22/2021 02:48 PM CALCIUM 10.1 05/22/2021 02:48 PM CHLORIDE 106 05/22/2021 02:48 PM ALBUMIN 4.2 05/22/2021 02:48 PM AST 25 05/22/2021 02:48 PM ALT 16 05/22/2021 02:48 PM ALKPHOS 82 05/22/2021 02:48 PM BILITOT 0.5 05/22/2021 02:48 PM PROT 6.6 05/22/2021 02:48 PM ANIONGAP 6 05/22/2021 02:48 PM Lab Results Component Value Date MAGNESIUM 1.6 05/03/2019 Lab Results Component Value Date PHOS 2.0 (L) 05/22/2021 Lab Results Component Value Date TSH 1.76 01/30/2021 Tumor Marker History Some values may be hidden. Unless noted otherwise, only the newest values recorded on each date aredisplayed. Tumor Markers Latest Ref Range 01/30/21 02/27/21 03/27/21 04/24/21 Chromogranin A <93 ng/mL 1181 (A) 1087 (A) 980 (A) 1125 (A) (A) Abnormal value Comments are available for some flowsheets but are not being displayed. IMAGING: CT chest with contrast Narrative: EXAMINATION: Computed tomography of the chest with [...] are identified. The osseous structures are intact. Impression: 1. Interval decrease in peripheral and basilar [...] obtained Electronically signed by: Ace Almanzar MD ASSESSMENT AND PLAN: Ms. La Chung is a 70 y.o. Non- female with metastatic neuroendocrine tumor who presents for routine oncologic care. Discussed consideration of treatment on CABINET study, since CT of chest looks better and clinically she is doing well. She prefers to wait a month or two if possible. Discussed next images with MRI abdomen/pelvis in 1 month, and she is agreeable. At that time, consider CABINET. Hold Xgeva today for low phosphorous, and start PO supplementation. Continue monthly Octreotide injection today, and she is agreeable to the plan. She will call with any issues before next visit if needed. Sabrina Willard NP Medical Oncology Cosigned by Eren Cr Jr., MD at 05/24/2021 3:39 PM TERMINAL PRESS OPERATOR INAL PRESS OPERATOR INAL PRESS OPERATOR documented in this encounter Plan of Treatment Not on file documented as of this encounter Results * (ABNORMAL) Chromogranin A (06/19/2021 2:47 PM TERMINAL PRESS OPERATOR) Chromogranin A 1630(H) <93 ng/mL [facility] Comment: Impaired renal or hepatic function or treatment with proton pump inhibitors may result in artifactual elevations of Chromogranin A. ADDITIONAL INFORMATION This test was developed and its performance characteristics determined by [facility] in a manner consistent with CLIA requirements. This test has not been cleared or approved by the U.S. Food and Drug Administration. The testing method is a homogeneous time-resolved immunofluorescent assay manufactured by [employer] and performed on the [employer] Kryptor Compact Plus. ? Values obtained with different assay methods or kits may be different and cannot be used interchangeably. ? Test results cannot be interpreted as absolute evidence for the presence or absence of malignant disease. Test Performed by: [address] [address] Compactor Driver: Immanuel Novak M.D. Ph.D.; CLIA# [id number] Blood 06/19/2021 2:47 PM TERMINAL PRESS OPERATOR 06/19/2021 4:51 PM TERMINAL PRESS OPERATOR us Eren Cr MD LAB BLOOD ORDERABLES Final Re sult [facility] Department [place] [address] * (ABNORMAL) Comprehensive metabolic panel (06/19/2021 2:47 PM TERMINAL PRESS OPERATOR) Sodium 139 135 - 145 mmol/L [facility] Comment:Testing performed by : [facility], [address] [place] [phone] Potassium, pl 4.0 3.3 - 4.9 mmol/L [facility] Comment:Testing performed by : [facility], [address] [place] [phone] Chloride 104 97 - 110 mmol/L [facility] Comment:Testing performed by : [facility], [address] [place] [phone] CO2 26 22 - 32 mmol/L [facility] Comment:Testing performed by : [facility], [address] [place] [phone] Anion gap 9 2 - 15 mmol/L [facility] Comment:Testing performed by : [facility], [address] [place] [phone] BUN 13 8 - 25 mg/dL [facility] Comment:Testing performed by : [facility], [address] [place] [phone] Creatinine 0.97 0.60 - 1.10 mg/dL [facility] Comment:Testing performed by : [facility], [address] [place] [phone] Glucose 107 70 - 199 mg/dL [facility] Comment: Interpretive Data Fasting glucose [...] was last revised 2017. Testing performed by: [facility], [address] [place] [phone] Calcium 10.9(H) 8.5 - 10.3 mg/dL [facility] Comment:Testing performed by : [facility], [address] [place] [phone] Bilirubin, total 0.6 0.1 - 1.2 mg/dL [facility] Comment:Testing performed by : [facility], [address] [place] [phone] Protein, pl 7.3 6.5 - 8.5 g/dL [facility] Comment:Testing performed by : [facility], [address] [place] [phone] Albumin 4.6 3.5 - 5.0 g/dL [facility] Comment:Testing performed by : [facility], [address] [place] [phone] Alk phos 96 40 - 130 Units/L [facility] Comment:Testing performed by : [facility], [address] [place] [phone] ALT 13 7 - 45 Units/L [facility] Comment:Testing performed by : [facility], [address] [place] [phone] AST 20 10 - 45 Units/L [facility] Comment:Testing performed by : [facility], [address] [place] [phone] Blood 06/19/2021 2:47 PM TERMINAL PRESS OPERATOR 06/19/2021 2:56 PM TERMINAL PRESS OPERATOR Eren Cr MD LAB BLOOD ORDERABLES Final Re sult [facility] Department [place] [address] * (ABNORMAL) CBC with auto differential (06/19/2021 2:47 PM TERMINAL PRESS OPERATOR) WBC 6.9 3.8 - 9.8 K/cumm [facility] Comment:Testing performed by : [facility], [address] [place] [phone] Hgb 14.4 12.1 - 15.1 g/dL [facility] Comment:Testing performed by : [facility], [address] [place], [place] [phone] Hct 42.1 36.1 - 44.3 % [facility] Comment:Testing performed by : [facility], [address] [place], [place] [phone] Plt 150 140 - 440 K/cumm [facility] Comment:Testing performed by : [place] [phone] MPV 8.4 6.8 - 10.4 fL [facility] Comment:Testing performed by : [facility], [address] [place] [address] RBC 4.68 3.90 - 5.00 M/cumm [facility] Comment:Testing performed by : [place] [address] MCV 90.0 80.0 - 97.6 fL [facility] Comment:Testing performed by : [place] [phone] MCH 30.7 26.7 - 33.7 pg [facility] Comment:Testing performed by : [facility], [address] [place], [place] [phone] MCHC 34.2 32.7 - 35.5 g/dL [facility] Comment:Testing performed by : [place] [address] RDW CV 15.6(H) 11.8 - 14.6 % [facility] Comment:Testing performed by : [place] [phone] NRBC abs 0.00 0.00 - 0.01 K/cumm JASON BLACK Comment:Testing performed by : [place] [phone] Blood 06/19/2021 2:47 PM TERMINAL PRESS OPERATOR 06/19/2021 2:56 PM TERMINAL PRESS OPERATOR us Eren Cr MD LAB BLOOD ORDERABLES Final Re sult [facility] [place] [address] * (ABNORMAL) Vitamin D 25 hydroxy (06/19/2021 2:47 PM TERMINAL PRESS OPERATOR) [facility] Vitamin D 25-OH 28(L) 30 - 80 ng/mL [facility] Blood 06/19/2021 2:47 PM TERMINAL PRESS OPERATOR 06/19/2021 4:41 PM TERMINAL PRESS OPERATOR Eren Cr MD LAB BLOOD ORDERABLES Final Re sult Performing Organization Address [facility] [place] [address] * Phosphorus (06/19/2021 2:47 PM TERMINAL PRESS OPERATOR) [facility] Phosphorus, pl 2.8 2.3 - 4.5 mg/dL [facility] Comment:Testing performed by : [facility], [address] [place] [phone] Blood 06/19/2021 2:47 PM TERMINAL PRESS OPERATOR 06/19/2021 2:56 PM TERMINAL PRESS OPERATOR Eren Cr MD LAB BLOOD ORDERABLES Final Re sult Performing Organization Address [facility] de Phone Number [facility] [place], [place] [id number] * (ABNORMAL) Lipid panel (06/19/2021 2:47 PM TERMINAL PRESS OPERATOR) [facility] Cholesterol 168 30 - 199 mg/dL [facility] [...] on 2018. Triglycerides 193(H) <=149 mg/dL [facility] Comment: Interpretive Data Ages < [...] revised on 2018. HDL 64 >=40 mg/dL [facility] Comment: Interpretive Data Ages < [...] on 2018. LDL, calculated 65 <=129 mg/dL [facility] Comment: [...] revised on 2018. Non-HDL Cholesterol 104 mg/dL [facility] Comment: Interpretive [...] ratio 3 [facility] Blood 06/19/2021 2:47 PM TERMINAL PRESS OPERATOR 06/19/2021 4:41 PM TERMINAL PRESS OPERATOR us Eren Cr MD LAB BLOOD ORDERABLES Final Re sult [facility] Department [place] [address] * MRI Abdomen Pelvis W WO Contrast (06/15/2021 5:37 PM TERMINAL PRESS OPERATOR) Anatomical Region Laterality Modality Body N/A Magnetic Resonan ce 06/16/2021 8:44 AM TERMINAL PRESS OPERATOR Impressions 06/16/2021 11:46 AM TERMINAL PRESS OPERATOR 1. ??Majority of liver lesions have increased in size, and the vaginal cuff lesion is likely also increased in size, indicating disease progression. Dictated by: Joyce Burgos MD The radiology attending physician has personally reviewed this study, and had reviewed and/or edited this written report and agrees with it. Electronically signed by: Mikey Abernathy M.D. Narrative 06/16/2021 11:46 AM TERMINAL PRESS OPERATOR EXAMINATION: 1. MAGNETIC RESONANCE IMAGING OF THE ABDOMEN WITHOUT AND WITH CONTRAST 2. MAGNETIC RESONANCE IMAGING OF THE PELVIS WITHOUT AND WITH CONTRAST HISTORY: History of metastatic small bowel neuroendocrine tumor TECHNIQUE: ??MRI of the abdomen and pelvis was performed prior to and following intravenous administration of gadolinium contrast. ?? Protocol: Abdomen and dynamic pelvis Contrast: Eovist 16 mL COMPARISON: MR abdomen and pelvis 03/23/2021 FINDINGS: Liver: Hepatic steatosis. - Bile ducts: Slight prominence of the extrahepatic biliary ducts, common bile duct measuring 7 mm in diameter, likely reflects phenomenon reservoir. - Focal liver lesions: Arterially enhancing restricting liver lesions, approximately 11 in number, majority of which have increased in size. ??For example a 2.6 cm lesion in segment 5/6 (image 27 series 20) previously measured 1.6 cm. ??The peripheral 3.1 cm lesion in segment 7 (image 39 series 20) previously measured 2.7 cm. ??No definite new lesion - Vasculature: Patent. Gallbladder: Surgically absent. Pancreas: Atrophic pancreas. Spleen: Normal. Adrenals: Normal. Kidneys: Right renal cyst is redemonstrated. Bladder: Decompressed. Reproductive organs: Uterus is surgically absent. ??Slightly increased size of masslike enhancement along the right vaginal cuff now measuring 2.3 cm (image 29 series 28) previously 1.9 cm. 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 ??Scattered peritoneal and omental small nodules are not definitely changed (for example a 1.5 cm enhancing nodule in the anterior left upper quadrant (image 5 series 22) is stable. ??The 5 mm nodule just below the left kidney (image 12 series 6) previously measured 6 mm. ??Retroperitoneal nodes were better demonstrated on prior PET/CT, not well visualized on today's exam due to technique. Procedure Note Mikey Abernathy MD PhD - 06/16/2021 EXAMINATION: 1. MAGNETIC RESONANCE IMAGING OF THE ABDOMEN WITHOUT AND WITH CONTRAST 2. MAGNETIC RESONANCE IMAGING OF THE PELVIS WITHOUT AND WITH CONTRAST HISTORY: History of metastatic small bowel neuroendocrine tumor TECHNIQUE: MRI of the abdomen and pelvis was performed prior to and following intravenous administration of gadolinium contrast. Protocol: Abdomen and dynamic pelvis Contrast: Eovist 16 mL COMPARISON: MR abdomen and pelvis 03/23/2021 FINDINGS: Liver: Hepatic steatosis. - Bile ducts: Slight prominence of the extrahepatic biliary ducts, common bile duct measuring 7 mm in diameter, likely reflects phenomenon reservoir. - Focal liver lesions: Arterially enhancing restricting liver lesions, approximately 11 in number, majority of which have increased in size. For example a 2.6 cm lesion in segment 5/6 (image 27 series 20) previously measured 1.6 cm. The peripheral 3.1 cm lesion in segment 7 (image 39 series 20) previously measured 2.7 cm. No definite new lesion - Vasculature: Patent. Gallbladder: Surgically absent. Pancreas: Atrophic pancreas. Spleen: Normal. Adrenals: Normal. Kidneys: Right renal cyst is redemonstrated. Bladder: Decompressed. Reproductive organs: Uterus is surgically absent. Slightly increased size of masslike enhancement along the right vaginal cuff now measuring 2.3 cm (image 29 series 28) previously 1.9 cm. 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 Scattered peritoneal and omental small nodules are not definitely changed (for example a 1.5 cm enhancing nodule in the anterior left upper quadrant (image 5 series 22) is stable. The 5 mm nodule just below the left kidney (image 12 series 6) previously measured 6 mm. Retroperitoneal nodes were better demonstrated on prior PET/CT, not well visualized on today's exam due to technique. IMPRESSION: 1. Majority of liver lesions have increased in size, and the vaginal cuff lesion is likely also increased in size, indicating disease progression. Dictated by: Joyce Burgos MD The radiology attending physician has personally reviewed this study, and had reviewed and/or edited this written report and agrees with it. Electronically signed by: Mikey Abernathy M.D. Eren Cr MD IMG MRI PROCEDURES Final Resu lt documented in this encounter Visit Diagnoses Diagnosis [...] Ordered Date ONCBCN CLINIC APPOINTMENT REQUEST 2 021 05/22/2021 ONCBCN INJECTION APPOINTMENT REQUEST 1 06/07 ONCBCN LAB APPOINTMENT 1 06/19/2021 documented in this encounter Care Teams Student Services Director Relationship Specialty Start Date End Date Julio César Briseno MD PCP - General 10/01/16 Eren Cr MD Referring Physician Medical Oncology 11/25/18 Yohana Bowen MD Radiation Oncologist Radiation Oncology 11/25/18 Sabrina Willard NP [address] [place] [address] Nurse Practitioner Medical Oncology 08/17/20 11/26/21 documented as of this encounter
--- OUTSIDE RECORDS SUMMARY | 2024-06-25 22:26 | XMS_ITS | Encounter Summary ---
Author Organization [facility] of [facility] Address [address] [place] [address] Phone Care Team Providers Care Instructor Apparel Manufacture Name Role Phone Julio César Briseno MD Primary Care Provider [phone] Eren Cr MD Unavailable [phone] Yohana Bowen MD Unavailable Sabrina Willard NP Unavailable [phone] 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) Procedures NE OCTREOTIDE INJECTION, DEPOT Octreotide 28 Day Cycles - Carcinoid Eren Cr MD [address] [facility] [address] [place] [address] Phone: tel: fax: [facility] [address] [address] Phone: tel: fax: Referral ID Status Reason Start Date Expiration Date V isits Requested Visits Authorized [id number] Authorized 11/28/2017 02/05/2025 1 150 Encounter Details Date Type Department Care Team (Late st Contact Info) Description 05/22/2021 4:00 PM CITY LIBRARY DIRECTOR Infusion [facility] Oncology [address] [facility] 7th [place] [address] Neuroendocrine carcinoma (CMS/HCC) (HCC) (Primary Dx); Malignant [...] on file Legal Sex Female 2:41 PM CITY LIBRARY DIRECTOR Gender Identity Not on file Sexual Orientation Straight 02/19/2021 9: 29 AM CDT Occupation Industry Job Start Date Job End Date retired Not on file Not on file Not on file documented as of this encounter Nursing Notes * Susana Begum - 05/22/2021 4:00 PM CST Oncology Nursing Note [facility] ONCOLOGY La Chung is a 70 y.o. female who presents foroctreotide inj Pre-treatment Nursing Assessment Nursing Assessment Appetite:: Fair Diarrhea:: No Constipation:: No Last BM Date: (WNL per pt) Existing Patients: Any falls since your last visit? : No Fatigue:: None Mouth Sores:: No Nausea/Vomiting:: No Pain:: No Peripheral Neuropathy: : No Pt states has potential to be ? : N/A Additional Notes: Pt denies new complaints. Will not receive xgeva today per order as phos level islow. BP: 158/83 Temp: 36.3 ??C (97.4 ??F) Temp src: Transdermal Pulse: 77 Resp: 16 SpO2: 97 % Weight: 80.6 kg (177 lb 9.6 oz) Treatment Patient: met treatment parameters La Chung tolerated treatment well. Additional Notes: Inj to L dorsogluteal without incident. Discharge Plan Discharge instructions given to patient. Future appointments given and reviewed with treatment plan. Discharge Mode: Ambulatory Accompanied by: Self Discharged To: Home LIBRARY DIRECTOR documented in this encounter Plan of [...] 30 mg 30 mg, intramuscular, Once, On 05/22/21 at 1715, For 1 dose, Refrigerate. For IM intragluteal administration only- alternate gluteal sites. 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),Neuroendocrine carcinoma (HCC) Given 05/22/2021 5:15 PM CITY LIBRARY DIRECTOR 30 mg Left Dorsogluteal/Butt ock documented in this encounter Orders Medications Ordered That Brett ht Not Have Been Administered Count Last Ordered Date First Ordered Date octreotide LAR (SandoSTATIN LAR) extended release intramuscular injection 30 mg 1 05/22/2021 Nursing Count Last Ordered Date First Orde red Date ONCBCN NURSING COMMUNICATION [id number] 1 05/22 Appointment Requests Count Last Ordered Date Fi rst Ordered Date ONCBCN INJECTION APPOINTMENT REQUEST 1 05/08 documented in this encounter Care Teams Instructor Apparel Manufacture Relationship Specialty Start Date End Date Julio César Briseno MD PCP - General 10/01/16 Eren Cr MD Referring Physician Medical Oncology 11/25/18 Yohana Bowen MD Radiation Oncologist Radiation Oncology 11/25/18 Sabrina Willard NP [address] [place] [address] Nurse Practitioner Medical Oncology 08/17/20 11/26/21 documented as of this encounter
--- OUTSIDE RECORDS SUMMARY | 2024-06-25 22:26 | XMS_ITS | Encounter Summary ---
Author Organization [facility] of [facility] Address [address] [place] [address] Phone Care Team Providers Care Marketing Engineer Name Role Phone Julio César Briseno MD Primary Care Provider [phone] Eren Cr MD Unavailable Yohana Bowen MD Unavailable Sabrina Willard NP Unavailable [phone] Encounter Details Date Type Department Care Team (Late st Contact Info) Description 06/14/2021 Orders Only [facility] Oncology [address] [facility] Advanced Medicine 7th [place] [address] [place] [address] Eren Cr MD [address] [facility] [address] [place] [address] Neuroendocrine carcinoma (CMS/HCC) (HCC) (Primary Dx) Social [...] on file Legal Sex Female 2:41 PM QUILTING SUPERVISOR Gender Identity Not on file Sexual [...] 06/19/2021 documented in this encounter Care Teams Marketing Engineer Relationship Specialty Start Date End Date Julio César Briseno MD PCP - General 10/01/16 Eren Cr MD Referring Physician Medical Oncology 11/25/18 Yohana Bowen MD Radiation Oncologist Radiation Oncology 11/25/18 Sabrina Willard NP [address] [place] [address] Nurse Practitioner Medical Oncology 08/17/20 11/26/21 documented as of this encounter
--- OUTSIDE RECORDS SUMMARY | 2024-06-25 22:26 | XMS_ITS | Encounter Summary ---
Author Organization [facility] of [facility] Address [address] [place] [address] Phone Care Team Providers Care Blanket Winder Operator Name Role Phone Julio César Briseno MD Primary Care Provider Eren Cr MD Unavailable [phone] Yohana Bowen MD Unavailable Sabrina Willard NP Unavailable Encounter Details Date Type Department Care Team (Late st Contact Info) Description 06/21/2021 Orders Only [facility] Oncology [address] [facility] Advanced Medicine 7th [place] [address] [place] [address] Eren Cr MD [address] [facility] [address] [place] [address] Neuro-endocrine carcinoma (CMS/HCC) (HCC) (Primary Dx) Social [...] file Legal Sex Female 2:41 PM CAR RENTAL SERVICE ATTENDANT Gender Identity Not on file Sexual Orientation Straight 02/19/2021 9: 29 AM CDT Occupation Industry Job Start Date Job End Date retired Not on file Not on file Not on file documented as of this encounter Plan of Treatment Not on file documented as of this encounter Results * Protein / creatinine ratio, urine, random (07/04/2021 1:45 PM CAR RENTAL SERVICE ATTENDANT) Protein, ur, quant 14.0 mg/dL [facility] Comment: Interpretive Data No reference range established. Current interpretive data was last revised 2018. Creatinine Ur 168.8 mg/dL [facility] Comment: Interpretive Data No reference range established. Current interpretive data was last revised 2018. Protein/creatinin e ratio 82.9 0.0 - 180.0 mg/g CR [facility] Urine 07/04/2021 1:45 PM CAR RENTAL SERVICE ATTENDANT 07/04/2021 3:39 PM CAR RENTAL SERVICE ATTENDANT us Eren Cr MD LAB URINE ORDERABLES Final Re sult [facility] Department [place] [address] * (ABNORMAL) Chromogranin A (07/04/2021 1:44 PM CAR RENTAL SERVICE ATTENDANT) Pathologist [facility] Chromogranin A 1364(H) <93 ng/mL [facility] Comment: Impaired renal or hepatic function or treatment with proton pump inhibitors may result in artifactual elevations of Chromogranin A. ADDITIONAL INFORMATION This test was developed and its performance characteristics determined by [facility] in a manner consistent with CLIA requirements. This test has not been cleared or approved by the U.S. Food and Drug Administration. The testing method is a homogeneous time-resolved immunofluorescent assay manufactured by [employer] and performed on the [employer] Kryptor Compact Plus. ? Values obtained with different assay methods or kits may be different and cannot be used interchangeably. ? Test results cannot be interpreted as absolute evidence for the presence or absence of malignant disease. Test Performed by: [facility] [address] [place] [address] Clinical Education Academic Coordinator: Immanuel Novak M.D. Ph.D.; CLIA# [id number] Blood 07/04/2021 1:44 PM CAR RENTAL SERVICE ATTENDANT 07/04/2021 4:13 PM CAR RENTAL SERVICE ATTENDANT Eren Cr MD LAB BLOOD ORDERABLES Final Re sult Performing Organization Address [facility] Co de Phone Number [facility] [place] [address] * TSH (07/04/2021 1:44 PM CAR RENTAL SERVICE ATTENDANT) Thyroid Stimulating Hormone 4.11 0.30 - 4.20 mcIUnit/mL [facility] Blood 07/04/2021 1:44 PM CAR RENTAL SERVICE ATTENDANT 07/04/2021 3:33 PM CAR RENTAL SERVICE ATTENDANT Eren Cr MD LAB BLOOD ORDERABLES Final Re sult Performing Organization Address [facility] Co de Phone Number [facility] [place] [address] * Phosphorus (07/04/2021 1:44 PM CAR RENTAL SERVICE ATTENDANT) Phosphorus, pl 2.5 2.3 - 4.5 mg/dL [facility] Blood 07/04/2021 1:44 PM CAR RENTAL SERVICE ATTENDANT 07/04/2021 1:46 PM CAR RENTAL SERVICE ATTENDANT Eren Cr MD LAB BLOOD ORDERABLES Final Re sult Performing Organization Address [facility] Co de Phone Number [facility] [place] [address] * Magnesium (07/04/2021 1:44 PM CAR RENTAL SERVICE ATTENDANT) Magnesium 1.8 1.4 - 2.5 mg/dL [facility] Blood 07/04/2021 1:44 PM CAR RENTAL SERVICE ATTENDANT 07/04/2021 1:46 PM CAR RENTAL SERVICE ATTENDANT Eren Cr MD LAB BLOOD ORDERABLES Final Re sult [facility] Department [place] [address] * Comprehensive metabolic panel (07/04/2021 1:44 PM CAR RENTAL SERVICE ATTENDANT) Pathologist [facility] Sodium 140 135 - 145 mmol/L [facility] Potassium, pl 4.1 3.3 - 4.9 mmol/L [facility] Chloride 105 97 - 110 mmol/L [facility] CO2 28 22 - 32 mmol/L [facility] Anion gap 7 2 - 15 mmol/L [facility] BUN 9 8 - 25 mg/dL [facility] Creatinine 0.91 0.60 - 1.10 mg/dL [facility] Glucose 112 70 - 199 mg/dL [facility] Comment: Interpretive Data Fasting [...] 2017. Calcium 10.3 8.5 - 10.3 mg/dL [facility] Bilirubin, total 0.3 0.1 - 1.2 mg/dL [facility] Protein, pl 7.0 6.5 - 8.5 g/dL [facility] Albumin 4.3 3.5 - 5.0 g/dL [facility] Alk phos 86 40 - 130 Units/L [facility] ALT 15 7 - 45 Units/L [facility] AST 22 10 - 45 Units/L [facility] Blood 07/04/2021 1:44 PM CAR RENTAL SERVICE ATTENDANT 07/04/2021 1:46 PM CAR RENTAL SERVICE ATTENDANT us Eren Cr MD LAB BLOOD ORDERABLES Final Re sult Performing Organization Address City/[facility]/ZIP Co de Phone Number [facility] Department [place] [address] * CBC with auto differential (07/04/2021 1:44 PM CAR RENTAL SERVICE ATTENDANT) WBC 5.1 3.8 - 9.9 K/cumm [facility] Hgb 13.1 11.9 - 15.5 g/dL [facility] Hct 40.2 35.6 - 45.5 % [facility] Plt 152 150 - 400 K/cumm [facility] MPV 10.2 9.1 - 12.3 fL [facility] RBC 4.30 3.90 - 5.20 M/cumm [facility] MCV 93.5 81.3 - 96.4 fL [facility] MCH 30.5 27.1 - 33.3 pg [facility] MCHC 32.6 32.3 - 35.7 g/dL [facility] RDW CV 13.7 11.1 - 14.9 % [facility] RDW SD 45.8 35.7 - 48.1 fL [facility] NRBC abs 0.00 0.00 - 0.01 K/cumm [facility] Blood 07/04/2021 1:44 PM CAR RENTAL SERVICE ATTENDANT 07/04/2021 1:46 PM CAR RENTAL SERVICE ATTENDANT us Eren Cr MD LAB BLOOD ORDERABLES Final Re sult [facility] [place] [address] documented in this encounter Visit Diagnoses Diagnosis Neuro-endocrine carcinoma (HCC)- Primary Other malignant neoplasm of unspecified site documented in this encounter Orders Appointment Requests Count Last Ordered Date Fi rst Ordered Date ONCBCN CLINIC APPOINTMENT REQUEST 1 021 ONCBCN LAB APPOINTMENT 1 07/04/2021 documented in this encounter Care Teams Blanket Winder Operator Relationship Specialty Start Date End Date Julio César Briseno MD PCP - General 10/01/16 Eren Cr MD Referring Physician Medical Oncology 11/25/18 Yohana Bowen MD Radiation Oncologist Radiation Oncology 11/25/18 Sabrina Willard NP [address] [place] [address] Nurse Practitioner Medical Oncology 08/17/20 11/26/21 documented as of this encounter
--- OUTSIDE RECORDS SUMMARY | 2024-06-25 22:26 | XMS_ITS | Encounter Summary ---
Author Organization [facility] of [facility] Address [address] [place] [address] Phone Care Team Providers Care Curtains And Draperies Salesperson Name Role Phone Julio César Briseno MD Primary Care Provider Eren Cr MD Unavailable Yohana Bowen MD Unavailable Sabrina Willard NP Unavailable Encounter Details Date Type Department Care Team (Late st Contact Info) Description 05/24/2021 Orders Only [facility] Oncology [address] [facility] Advanced Medicine 7th [place] [address] [place] [address] Eren Cr MD [address] [facility] [address] [place] [address] Social History Tobacco Use Types Packs/Day Years [...] file Legal Sex Female 2:41 PM SUPERVISOR PREPRESS Gender Identity Not on file Sexual Orientation Straight 02/19/2021 9: 29 AM CDT Occupation Industry Job Start Date Job End Date retired Not on file Not on file Not on file documented as of this encounter Plan of Treatment Not on file documented as of this encounter Visit Diagnoses Not on filedocumented in this encounter Care Teams Curtains And Draperies Salesperson Relationship Specialty Start Date End Date Julio César Briseno MD PCP - General 10/01/16 Eren Cr MD Referring Physician Medical Oncology 11/25/18 Yohana Bowen MD Radiation Oncologist Radiation Oncology 11/25/18 Sabrina Willard NP [address] [place] [address] Nurse Practitioner Medical Oncology 08/17/20 11/26/21 documented as of this encounter
--- OUTSIDE RECORDS SUMMARY | 2024-06-25 22:26 | XMS_ITS | Encounter Summary ---
Author Organization [facility] Address [address] [place] [address] Phone Care Team Providers Care Furnace Roaster Name Role Phone Julio César Briseno MD Primary Care Provider [phone] Eren Cr MD Unavailable [phone] Yohana Bowen MD Unavailable Sabrina Willard NP Unavailable Encounter Details Date Type Department Care Team (Late st Contact Info) Description 05/22/2021 Orders Only [facility] [address] [facility] Advanced Medicine 5th [place] [address] [place] [address] Minerva Gibbons Nipple discharge in female (Primary Dx); Encounter for screening mammogram for malignant neoplasm of breast Social History Tobacco Use Types Packs/Day Years [...] file Legal Sex Female 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 Gender Identity Not on file Sexual Orientation Straight 02/19/2021 9: 29 AM CDT Occupation Industry Job Start Date Job End Date retired Not on file Not on file Not on file documented as of this encounter Plan of Treatment Not on file documented as of this encounter Visit Diagnoses Diagnosis Nipple discharge in female- Primary Encounter for screening mammogram for malignant neoplasm of breast documented in this encounter Care Teams Furnace Roaster Relationship Specialty Start Date End Date Julio César Briseno MD PCP - General 10/01/16 Eren Cr MD Referring Physician Medical Oncology 11/25/18 Yohana Bowen MD Radiation Oncologist Radiation Oncology 11/25/18 Sabrina Willard NP [address] [place] [address] Nurse Practitioner Medical Oncology 08/17/20 11/26/21 documented as of this encounter
--- OUTSIDE RECORDS SUMMARY | 2024-06-25 22:26 | XMS_ITS | Encounter Summary ---
Author Organization [facility] Address [address] [place] [address] Care Team Providers Care Seamless Hosiery Knitter Name Role Phone Julio César Briseno MD Primary Care Provider [phone] Eren Cr MD Unavailable [phone] Yohana Bowen MD Unavailable Sabrina Willard NP Unavailable [phone] Reason for Referral * MRI/CAT/PET Scan (Routine) - Closed Specialty Diagnoses / Procedures Referred By Evelyne bowman Referred To Contact Radiology Diagnoses Malignant neoplasm metastatic to liver (HCC) Bone metastasis Neuroendocrine carcinoma (HCC) Procedures MRI Abdomen Pelvis W WO Contrast Eren Cr MD [address] [place] [address] Phone: tel: fax: [address] [address] Referral ID Status Reason Start Date Expiration Date Visits Re quested Visits Authorized [id number] Closed 05/22/2021 06/21/2022 1 1 WATCHMAN Reason for Visit * MRI/CAT/PET Scan (Routine) - Closed Specialty Diagnoses / Procedures Referred By Evelyne bowman Referred To Contact Radiology Diagnoses Malignant neoplasm metastatic to liver (HCC) Bone metastasis Neuroendocrine carcinoma (HCC) Procedures MRI Abdomen Pelvis W WO Contrast Eren Cr MD [address] [facility] [address] [place] [address] Phone: tel: fax: [facility] [address] [facility] [place] [address] Referral ID Status Reason Start Date Expiration Date Visits Re quested Visits Authorized [id number] Closed 05/22/2021 06/21/2022 1 1 Encounter Details Date Type Department Care Team (Latest Contact Info) Description 06/15/2021 4:15 PM FIRE WATCHMAN - 06/15/2021 11:59 PM FIRE WATCHMAN Hospital Encounter [facility] [address] [place] [address] Eren Cr MD [address] [facility] [address] [place] [address] Malignant neoplasm metastatic to liver (CMS/HCC) (HCC); Bone metastasis (CMS/HCC) (HCC); Neuroendocrine carcinoma (CMS/HCC) (HCC) Discharge [...] on file Legal Sex Female 2:41 PM FIRE WATCHMAN Gender Identity Not on file Sexual Orientation [...] capsuleIndications :supplement Take 1 tablet by mouth it compliance analyst before breakfast 07/04/2016 4 cholecalciferol (VITAMIN D-3) 2,000 unit capsule Take 1 capsule (2,000 Units total) by mouth daily 30 capsule 2 04/25/2019 3 cholestyramine (QUESTRAN) 4 gram packet Take 1 packet by mouth 3 (three) times a day with meals 270 packet 3 09/04/2019 2 clotrimazole-betam ethasone (LOTRISONE) cream Apply 1 Application topically daily as needed (rash) 4 coenzyme [id number] E 100-5 mg-unit capsuleIndications :supplement Take 1 tablet by mouth it compliance analyst before breakfast 4 denosumab (XGEVA) 120 [...] Procedure Name Priority Date/Time Associated Diagnosis Comments MRI ABDOMEN/PELVIS W WO CONTRAST Schedule Routine, Read Routine (OP Routine) 06/15/2021 5:37 PM FIRE WATCHMAN Malignant neoplasm metastatic to liver (CMS/HCC) (HCC) Bone metastasis (CMS/HCC) (HCC) Neuroendocrine carcinoma (CMS/HCC) (HCC) POCT CREATININE - DEVICE Routine 06/15/2021 4:45 PM FIRE WATCHMAN documented in this encounter Results * MRI Abdomen Pelvis W WO Contrast (06/15/2021 5:37 PM FIRE WATCHMAN) Anatomical Region Laterality Modality Body N/A Magnetic Resonan ce 06/16/2021 8:44 AM FIRE WATCHMAN Impressions 06/16/2021 11:46 AM FIRE WATCHMAN 1. ??Majority of liver lesions have increased in size, and the vaginal cuff lesion is likely also increased in size, indicating disease progression. Dictated by: Joyce Burgos MD The radiology attending physician has personally reviewed this study, and had reviewed and/or edited this written report and agrees with it. Electronically signed by: Mikey Abernathy M.D. Narrative 06/16/2021 11:46 AM FIRE WATCHMAN EXAMINATION: 1. MAGNETIC RESONANCE IMAGING OF THE [...] it. Electronically signed by: Mikey Abernathy M.D. us Eren Cr MD IMG MRI PROCEDURES Final Resu lt * POCT creatinine (06/15/2021 4:45 PM FIRE WATCHMAN) Creatinine POC 1.0 0.6 - 1.1 mg/dL [facility] Blood 06/15/2021 4:45 PM FIRE WATCHMAN 06/15/2021 4:45 PM FIRE WATCHMAN Eren Cr MD LAB POCT ORDERABLES - DEVICE Final Result Performing Organization Address City/State/[facility] Co de Phone Number [facility] [place] [address] documented in this encounter Visit Diagnoses Diagnosis Malignant neoplasm metastatic to liver (HCC) Bone metastasis Secondary malignant neoplasm of bone and bone marrow Neuroendocrine carcinoma (HCC) Other malignant neoplasm of unspecified site documented in this encounter Administered Medications Inactive Administered Medications - up to 3 most recent administrations Medication Order MAR Action Action Date Dose Rate Site gadoxetate (EOVIST) 0.25 mmol/mL (181.43 mg/mL) injection 16.12 mL 16.12 mL (0.05 mmol/kg ? 80.6 kg), intravenous, Once in imaging, contrast, Starting on Lydia 06/15/21 at 1732, For 1 dose, Imaging Protocol Orders Contrast Given 06/15/2021 5:34 PM FIRE WATCHMAN 16 mL documented in this encounter Orders Medications Ordered That Brett ht Not Have Been Administered Count Last Ordered Date First Ordered Date gadoxetate (EOVIST) 0.25 mmo l/mL (181.43 mg/mL) injection 16.12 mL 1 06/15/2021 documented in this encounter Care Teams Seamless Hosiery Knitter Relationship Specialty Start Date End Date Julio César Briseno MD PCP - General 10/01/16 Eren Cr MD Referring Physician Medical Oncology 11/25/18 Yohana Bowen MD Radiation Oncologist Radiation Oncology 11/25/18 Sabrina Willard NP [address] [place] [address] Nurse Practitioner Medical Oncology 08/17/20 11/26/21 documented as of this encounter
--- OUTSIDE RECORDS SUMMARY | 2024-06-25 22:26 | XMS_ITS | Encounter Summary ---
Author Organization [facility] Address [address] [place] [address] Phone Care Team Providers Care Hair Worker Name Role Phone Julio César Briseno MD Primary Care Provider [phone] Eren Cr MD Unavailable [phone] Yohana Bowen MD Unavailable Sabrina Willard NP Unavailable Encounter Details Date Type Department Care Team (Late st Contact Info) Description 05/23/2021 Orders Only [facility] [address] [facility] Advanced Medicine 7th [place] [address] [place] [id number] Eren Cr MD [address] [facility] [address] [place] [address] Social History Tobacco Use Types Packs/Day Years [...] file Legal Sex Female 2:41 PM BENCH PRECISION ASSEMBLER Gender Identity Not on file Sexual Orientation Straight 02/19/2021 9: 29 AM CDT Occupation Industry Job Start Date Job End Date retired Not on file Not on file Not on file documented as of this encounter Plan of Treatment Not on file documented as of this encounter Visit Diagnoses Not on filedocumented in this encounter Care Teams Hair Worker Relationship Specialty Start Date End Date Julio César Briseno MD PCP - General 10/01/16 Eren Cr MD Referring Physician Medical Oncology 11/25/18 Yohana Bowen MD Radiation Oncologist Radiation Oncology 11/25/18 Sabrina Willard NP [address] [place] [address] Nurse Practitioner Medical Oncology 08/17/20 11/26/21 documented as of this encounter
--- OUTSIDE RECORDS SUMMARY | 2024-06-25 22:26 | XMS_ITS | Encounter Summary ---
Author Organization [facility] Address [address] [place] [address] Phone Care Team Providers Care Regional Hr Manager Name Role Phone Julio César Briseno MD Primary Care Provider Eren Cr MD Unavailable [phone] Yohana Bowen MD Unavailable Sabrina Willard NP Unavailable [phone] Encounter Details Date Type Department Care Team (Late st Contact Info) Description 06/13/[address] 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 Gender Identity Not on file Sexual Orientation Straight 02/19/2021 9: 29 AM CDT Occupation Industry Job Start Date Job End Date retired Not on file Not on file Not on file documented as of this encounter Plan of Treatment Not on file documented as of this encounter Visit Diagnoses Not on filedocumented in this encounter Care Teams Regional Hr Manager Relationship Specialty Start Date End Date Julio César Briseno MD PCP - General 10/01/16 Eren Cr MD Referring Physician Medical Oncology 11/25/18 Yohana Bowen MD Radiation Oncologist Radiation Oncology 11/25/18 Sabrina Willard NP [address] [place] [address] Nurse Practitioner Medical Oncology 08/17/20 11/26/21 documented as of this encounter
--- OUTSIDE RECORDS SUMMARY | 2024-06-25 22:26 | XMS_ITS | Encounter Summary ---
Author Organization [facility] Address [address] [place] [address] Phone Care Team Providers Care Workforce Management Manager Name Role Phone Julio César Briseno MD Primary Care Provider [phone] Eren Cr MD Unavailable [phone] Yohana Bowen MD Unavailable Sabrina Willard NP Unavailable Encounter Details Date Type Department Care Team (Late st Contact Info) Description 06/07/2021 Orders Only [facility] Oncology [address] [facility] Advanced Medicine 7th [place] [address] [place] [phone] Eren Cr MD [address] [facility] [address] [place] [address] Social History Tobacco Use Types Packs/Day Years [...] file Legal Sex Female 2:41 PM SURGICAL SUPPLIES STERILIZER Gender Identity Not on file Sexual Orientation Straight 02/19/2021 9: 29 AM CDT Occupation Industry Job Start Date Job End Date retired Not on file Not on file Not on file documented as of this encounter Plan of Treatment Not on file documented as of this encounter Visit Diagnoses Not on filedocumented in this encounter Care Teams Workforce Management Manager Relationship Specialty Start Date End Date Julio César Briseno MD PCP - General 10/01/16 Eren Cr MD Referring Physician Medical Oncology 11/25/18 Yohana Bowen MD Radiation Oncologist Radiation Oncology 11/25/18 Sabrina Willard NP [address] [place] [address] Nurse Practitioner Medical Oncology 08/17/20 11/26/21 documented as of this encounter
--- OUTSIDE RECORDS SUMMARY | 2024-06-25 22:26 | XMS_ITS | Encounter Summary ---
Author Organization [facility] Address [address] [place] [address] Phone Care Team Providers Care Fire Hydrant Mechanic Name Role Phone Julio César Briseno MD Primary Care Provider [phone] Eren Cr MD Unavailable [phone] Yohana Bowen MD Unavailable Sabrina Willard NP Unavailable [phone] 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) Procedures [facility] OCTREOTIDE INJECTION, DEPOT Octreotide 28 Day Cycles - Carcinoid Eren Cr MD [address] [facility] [address] [place] [address] Phone: tel: fax: [facility] [address] [address] Phone: tel: fax: Referral ID Status Reason Start Date Expiration Date V isits Requested Visits Authorized [id number] Authorized 11/28/2017 02/05/2025 1 150 Encounter Details Date Type Department Care Team (Late st Contact Info) Description 06/19/2021 4:15 PM ASSISTANT MANAGER/EMBALMER Infusion [facility] Oncology [address] [facility] Advanced Medicine 7th [place] [address] Neuroendocrine carcinoma (CMS/HCC) (HCC); Malignant neoplasm metastatic [...] file Legal Sex Female 2:41 PM ASSISTANT MANAGER/EMBALMER Gender Identity Not on file Sexual Orientation Straight 02/19/2021 9: 29 AM CDT Occupation Industry Job Start Date Job End Date retired Not on file Not on file Not on file documented as of this encounter Nursing Notes * Susana Begum - 06/19/2021 4:15 PM CST Oncology Nursing Note [facility] Lashirley Chung is a 70 y.o. female who presents for hydration and octreotide. Pre-treatment Nursing Assessment Nursing Assessment Appetite:: Fair Diarrhea:: No Constipation:: No Last BM Date: 06/19/21 Existing Patients: Any falls since your last visit? : No Fatigue:: Occassional Mouth Sores:: No Nausea/Vomiting:: No Pain:: No Peripheral Neuropathy: : No Pt states has potential to be ? : N/A Shortness of Breath?: Yes (Pt with ongoing concerns, being monitored for infiltration of lungs) Lungs auscultated PRN:: No Pt is on oxygen? : No Skin Condition/Temp: Warm,Dry Additional Notes: Per order: do not administer Xgeva today. Will give 500ml NS bolus and octreotideinj. Labs drawn per order. 24hr urine jug given to patient with instructions to start tonight when done with treatment and collect for 24 hr. Pt educated to store urine in refridgerator until able toreturn jug Saturday morning as center lab is closed after 5pm. PT verbalizes understanding. BP: 112/55 Temp: 36.7 ??C (98.1 ??F) Temp src: Oral Pulse: 85 Resp: 16 SpO2: 97 % Weight: 78 kg (172 lb) Treatment Patient: met treatment parameters Pre blood return: Brisk La Chung tolerated treatment well. Additional Notes: no other concerns voiced. Post blood return: Brisk IV access post infusion: NS Discharge Plan Discharge instructions given to patient. Future appointments given and reviewed with treatment plan. Discharge Mode: Ambulatory Accompanied by: Family Discharged To: Home STANT MANAGER/EMBALMER documented in this encounter Plan of Treatment Not on file documented as of this encounter Visit Diagnoses Diagnosis Neuroendocrine carcinoma (HCC) Other malignant neoplasm of unspecified site Malignant neoplasm metastatic to liver (HCC) documented in this encounter Orders Appointment Requests Count Last Ordered Date Fi rst Ordered Date ONCBCN INJECTION APPOINTMENT REQUEST 1 06/07 documented in this encounter Care Teams Fire Hydrant Mechanic Relationship Specialty Start Date End Date Julio César Briseno MD PCP - General 10/01/16 Eren Cr MD Referring Physician Medical Oncology 11/25/18 Yohana Bowen MD Radiation Oncologist Radiation Oncology 11/25/18 Sabrina Willard NP [address] [place] [address] Nurse Practitioner Medical Oncology 08/17/20 11/26/21 documented as of this encounter
--- OUTSIDE RECORDS SUMMARY | 2024-06-25 22:26 | XMS_ITS | Encounter Summary ---
Author Organization [place] [facility] Address [address] [place] [address] Phone Care Team Providers Care [employer] Name Role Phone Julio César Briseno MD Primary Care Provider [phone] Eren Cr MD Unavailable [phone] Yohana Bowen MD Unavailable Sabrina Willard NP Unavailable Reason for Referral * MRI/CAT/PET Scan (Routine) - Closed Specialty Diagnoses / Procedures Referred By Evelyne bowman Referred To Contact Radiology Diagnoses Neuroendocrine carcinoma (HCC) Bone metastasis 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) Procedures CT chest with contrast Eren Cr MD [address] [place] [address] Phone: tel: fax: [address] [address] Referral ID Status Reason Start Date Expiration Date Visits Re quested Visits Authorized [id number] Closed 04/24/2021 05/24/2022 1 1 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) Procedures [place] OCTREOTIDE INJECTION, DEPOT Octreotide 28 Day Cycles - Carcinoid Eren Cr MD [address] [facility] [address] [place] [address] Phone: tel: fax: [address] [address] Phone: tel: fax: Referral ID Status Reason Start Date Expiration Date V isits Requested Visits Authorized [id number] Authorized 11/28/2017 02/05/2025 1 150 Encounter Details Date Type Department Care Team (Late st Contact Info) Description 04/24/2021 3:00 PM CDT Office Visit [facility] Oncology [address] [facility] Advanced Medicine 7th [place] [address] [place] [address] Eren Cr MD [address] [facility] [address] [facility] [place] [address] Neuroendocrine carcinoma (CMS/HCC) (HCC) (Primary Dx); Bone [...] on file Legal Sex Female 2:41 PM COVER CREASER Gender Identity Not on file Sexual Orientation Straight 02/19/2021 9: 29 AM CDT Occupation Industry Job Start Date Job End Date retired Not on file Not on file Not on file documented as of this encounter Last Filed Vital Signs Vital Sign Reading Time Taken Comments Blood Pressure 142/71 04/24/2021 3:01 PM CDT Pulse 104 04/24/2021 3:01 PM CDT Temperature 36.7 ??C (98 ??F) 04/24/2021 3:01 PM CDT Respiratory Rate 16 04/24/2021 3:01 PM CDT Oxygen Saturation 97% 04/24/2021 3:01 PM CDT Inhaled Oxygen Concentration - - Weight 80.1 kg (176 lb 9.6 oz) 04/24/2021 3:01 P M CDT Height - - Body Mass Index 29.39 03/23/2021 4:54 PM CDT documented in this encounter Progress Notes * Eren Cr Jr., MD - 04/24/2021 3:00 PM CDT La Chung : 1950 DATE OF VISIT: 04/24/21 Cancer Staging Malignant neoplasm metastatic to liver [...] colectomy in [facility] OR by Dr. Greyson Reeves. Biopsy revealed [...] - Carcinoid Current day: Day 1, Cycle 39 (Planned for 04/24/2021) Following planned day: Day 1, Cycle 40 (Planned for 05/22/2021) Oncology Supportive Care: DENOSUMAB (XGEVA) INJECTION & HYDRATION THERAPY PLAN Current treatment: Treatment 16 (Planned for 04/24/2021) Following planned treatment: Treatment 17 (Planned for 05/22/2021) INTERVAL HISTORY Ms. La Chung is a 70 y.o. Non- female with a history of metastatic neuroendocrine tumor who presents for follow-up routine oncologic care. She had been off her everolimus and steroids and Z merlin. Now she states that her breathing is much better. She denies any mouth sores, skin rashes, fever, chills, night sweats, shortness of breath, cough, chest pain, nausea, vomiting, constipation, diarrhea, neuropathy, edema, urinary symptoms, or pain. PAST MEDICAL HISTORY: Past Medical History: Diagnosis Date ??? Arthritis [...] immunotherapy ??? Status post radiation therapy 09/2019 PAST SURGICAL HISTORY: Past Surgical History: Procedure Laterality Date ??? [...] ??? JOINT REPLACEMENT Left 2014 ? ? [place] REMOVAL OF TONSILS,<12 Y/O Tonsillectomy - (Added by TW Conv) ??? [place] TOTAL ABDOM HYSTERECTOMY Hysterectomy - (Added by TW Conv) ALLERGIES: Allergies Allergen Reactions ??? Morphine Blisters ??? Ezetimibe-Simvastatin Muscle pain and Unknown Muscle weakness ??? Ramipril Cough CURRENT MEDICATIONS: Current Outpatient Medications: ??? albuterol HFA (PROVENTIL HFA,VENTOLIN HFA,PROAIR HFA) 90 mcg/actuation inhaler, INHALE 1 PUFF BY MOUTH EVERY 4 HOURS, Disp: , Rfl: ??? ascorbic acid, vitamin C, 500 mg capsule, Take 1 tablet by mouth teaseler before breakfast, Disp: , Rfl: ??? cholecalciferol (VITAMIN D-3) 2,000 unit capsule, Take 1 capsule (2,000 Units total) by mouth daily (Patient taking differently: Take 2,000 Units by mouth daily ), Disp: 30 capsule, Rfl: 2 ??? clotrimazole-betamethasone (LOTRISONE) cream, clotrimazole-betamethasone 1 %-0.05 % topical cream APPLY EXTERNALLY TO ABDOMEN TWICE DAILY NEEDED, Disp: , Rfl: ??? coenzyme T33-gcecyel E (CO Q-10, WITH VIT E,) 100-5 mg-unit capsule, Take by mouth teaseler before breakfast , Disp: , Rfl: ??? denosumab (XGEVA) 120 mg/1.7 mL (70 mg/mL) injection, Inject under the skin every 30 (thirty) days, Disp: , Rfl: ??? diphenoxylate-atropine (LOMOTIL) 2.5-0.025 mg per tablet, Take 1 tablet by mouth 4 (four) timesa day as needed for diarrhea, Disp: 90 tablet, Rfl: 0 ??? doxycycline hyclate 100 mg capsule, TAKE 1 CAPSULE BY MOUTH EVERY 12 HOURS FOR 10 DAYS, Disp: ,Rfl: ??? DULoxetine DR (CYMBALTA) 30 mg capsule, Take 1 capsule (30 mg total) by mouth daily (Patient taking differently: Take 30 mg by mouth teaseler before breakfast ), Disp: 30 capsule, Rfl: 2 ??? everolimus (AFINITOR) 10 mg tablet, 10 mg Pt states she is taking every other day. 02/13/21 RW, Disp: , Rfl: ??? fluticasone propionate (FLONASE) 50 mcg/actuation nasal spray, fluticasone propionate 50 mcg/actuation nasal spray,suspension, Disp: , Rfl: ??? loperamide HCl (IMODIUM A-D ORAL), , Disp: , Rfl: ??? octreotide (SandoSTATIN) 50 mcg/mL (1 mL) syringe, every 30 (thirty) days, Disp: , Rfl: ??? olmesartan-hydrochlorothiazide (BENICAR HCT) 20-12.5 mg per tablet, Take 0.5 tablets by mouth teaseler before breakfast decrease dosage to 0.5 tablet daily 05/14/[address] Briseno at office visit., Disp: , Rfl: ??? ondansetron (ZOFRAN) 8 mg tablet, Take 1 tablet (8 mg total) by mouth every 8 (eight) hours as needed for nausea or vomiting, Disp: 20 tablet, Rfl: 3 ??? ostomy supplies misc, Patient has colostomy and needs Cavilon 3M skin barrier film to manage., Disp: 20 each, Rfl: 6 ??? oxybutynin (DITROPAN) 5 mg tablet, Take 1 tablet (5 mg total) by mouth 2 (two) times a day for 14 days, Disp: 28 tablet, Rfl: 0 ??? simvastatin (ZOCOR) 20 mg tablet, Take 20 mg by mouth nightly , Disp: , Rfl: ??? triamcinolone (KENALOG) 0.1 % ointment, Apply to itchy rash on hands twice daily until improved, Disp: 454 g, Rfl: 1 ??? cholestyramine (QUESTRAN) 4 gram packet, Take 1 packet by mouth 3 (three) times a day with meals, Disp: 270 packet, Rfl: 3 ??? gabapentin (NEURONTIN) 600 mg tablet, Take 1 tablet (600 mg total) by mouth 3 (three) times a day (Patient not taking: Reported on 04/24/2021), Disp: 90 tablet, Rfl: 11 ??? HYDROcodone-acetaminophen (NORCO) 5-325 mg per tablet, , Disp: , Rfl: ??? montelukast (SINGULAIR) 10 mg tablet, Take 10 mg by mouth as needed (Patient not taking: Reported on 04/24/2021), Disp: , Rfl: ??? oxyCODONE (ROXICODONE) 5 mg immediate release tablet, Take 1 tablet (5 mg total) by mouth every4 (four) hours as needed for pain (Patient not taking: Reported on 04/24/2021), Disp: 8 tablet, Rfl: 0 ??? predniSONE (DELTASONE) 20 mg tablet, TAKE 2 TABLETS BY MOUTH EVERY DAY FOR 5 DAYS (Patient not taking: Reported on 04/24/2021), Disp: , Rfl: No current facility-administered medications for this visit. Facility-Administered Medications Ordered in Other Visits: ??? L-arginine 1.25%/L-lysine 1.25% infusion 1,000 mL, 1,000 mL, intravenous, Continuous, Meagan Amaya MD REVIEW OF SYSTEMS: All other systems negative. PHYSICAL EXAMINATION: Performance Status: ECOG 1. Vital signs: Vitals BP 142/71 (BP Location: Right arm) Pulse 104 Temp 36.7 ??C (98 ??F) (Oral) Resp 16 Wt 80.1 kg (176 lb 9.6 oz) SpO2 97% BMI 29.39 kg/m?? General: She is a 70 y.o. female and is in no acute distress. Mental Status: Awake, alert, and oriented. Answers questions appropriately and is cooperative. Doesnot appear anxious. No slurred speech. HEENT: Normocephalic, atraumatic, and symmetric. EOMI. Sclera anicteric. Moist mucous membranes. Nomucositis or thrush. Neck: Supple. Trachea midline. Lymphatics: No palpable cervical, supraclavicular, or inguinal lymphadenopathy. Lungs: Chest expansion symmetrical. Respirations even and unlabored. Clear to auscultation bilaterally. Heart: S1, S2 heard well. Regular rate and rhythm. No murmurs, rubs, or gallops. Abdomen: Soft, nontender, nondistended. Normoactive bowel sounds. No organomegaly or masses palpated. Extremities: No clubbing, cyanosis, or edema. Skin: No rashes or lesions. No nail changes. Neurological: No focal neurological deficits. LABORATORY: Recent Results (from the past 24 hour(s)) Comprehensive metabolic panel Collection Time: 04/24/21 2:54 PM Result Value Ref Range Sodium 139 135 - 145 mmol/L Potassium, pl 4.2 3.3 - 4.9 mmol/L Chloride 106 97 - 110 mmol/L CO2 26 22 - 32 mmol/L Anion gap 7 2 - 15 mmol/L BUN 14 8 - 25 mg/dL Creatinine 0.91 0.60 - 1.10 mg/dL Glucose 135 70 - 199 mg/dL Calcium 10.4 (H) 8.5 - 10.3 mg/dL Bilirubin, total 0.5 0.1 - 1.2 mg/dL Protein, pl 7.2 6.5 - 8.5 g/dL Albumin 4.4 3.5 - 5.0 g/dL Alk phos 107 40 - 130 Units/L ALT 20 7 - 45 Units/L AST 24 10 - 45 Units/L CBC with auto differential Collection Time: 04/24/21 2:54 PM Result Value Ref Range WBC 4.7 3.8 - 9.8 K/cumm Hgb 12.7 12.1 - 15.1 g/dL Hct 37.9 36.1 - 44.3 % Plt 182 140 - 440 K/cumm MPV 7.7 6.8 - 10.4 fL RBC 4.15 3.90 - 5.00 M/cumm MCV 91.4 80.0 - 97.6 fL MCH 30.6 26.7 - 33.7 pg MCHC 33.4 32.7 - 35.5 g/dL RDW CV 20.2 (H) 11.8 - 14.6 % NRBC abs 0.00 0.00 - 0.01 K/cumm Phosphorus Collection Time: 04/24/21 2:54 PM Result Value Ref Range Phosphorus, pl 2.9 2.3 - 4.5 mg/dL Differential, auto Collection Time: 04/24/21 2:54 PM Result Value Ref Range Neutrophil abs 3.4 1.8 - 6.6 K/cumm Lymphocyte abs 0.5 (L) 1.2 - 3.3 K/cumm Monocyte abs 0.6 0.2 - 1.2 K/cumm Eosinophil abs 0.1 0.0 - 0.5 K/cumm Basophil abs 0.0 0.0 - 0.2 K/cumm Neutrophil pct 73.6 % Lymphocyte pct 10.9 % Monocyte pct 12.8 % Eosinophil pct 1.8 % Basophil pct 0.9 % eGFR Collection Time: 04/24/21 2:54 PM Result Value Ref Range eGFR 63 (L) 90 - 130 mL/min/1.73 m2 Hematology Lab History Some values may be hidden. Unless noted otherwise, only the newest values recorded on each date aredisplayed. Labs - Hematology Latest Ref Range 03/09/21 03/17/21 03/27/21 04/24/21 WBC 3.8 - 9.8 K/cumm 2.3 (A) 2.9 (A) 6.6 4.7 Total Hb, POC 12.1 - 15.1 g/dL 11.8 (A) 11.3 (A) 11.8 (A) 12.7 Hct 36.1 - 44.3 % 35.3 (A) 33.0 (A) 35.6 (A) 37.9 Plt 140 - 440 K/cumm 78 (A) 95 (A) 199 182 Neutrophil abs 1.8 - 6.6 K/cumm 1.6 (A) 2.1 5.5 3.4 Lymphocytes, abs 1.2 - 3.3 K/cumm 0.2 (A) 0.2 (A) 0.5 (A) 0.5 (A) (A) Abnormal value Comments are available for some flowsheets but are not being displayed. Chem/LFT Lab History Some values may be hidden. Unless noted otherwise, only the newest values recorded on each date aredisplayed. Labs-Chem/LFT Latest Ref Range 03/17/21 03/23/21 03/27/21 04/24/21 Sodium 135 - 145 mmol/L 137 140 139 Creatinine 0.60 - 1.10 mg/dL 0.82 1.00 0.91 Bilirubin, total 0.1 - 1.2 mg/dL 0.4 0.4 0.5 AST 10 - 45 Units/L 36 30 24 ALT 7 - 45 Units/L 28 25 20 CrCl- Actual Body Weight (Cockcroft-Gault) 79.2 67.4 64.5 70.7 Comments are available for some flowsheets but are not being displayed. Tumor Marker History Some values may be hidden. Unless noted otherwise, only the newest values recorded on each date aredisplayed. Tumor Markers Latest Ref Range 01/02/21 01/30/21 02/27/21 03/27/21 Chromogranin A <93 ng/mL 779 (A) 1181 (A) 1087 (A) 980 (A) (A) Abnormal value Comments are available for some flowsheets but are not being displayed. IMAGES MRI Abdomen Pelvis W WO Contrast Narrative: EXAMINATION: 1. MAGNETIC RESONANCE IMAGING OF THE ABDOMEN WITHOUT AND WITH CONTRAST 2. 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 Status post Lutathera therapy completed 08/05/2019. He is being treated with Denosumab and octreotide started 11/03/2017. TECHNIQUE: MRI of the abdomen and pelvis was performed prior to and following intravenous administration of gadolinium contrast. Protocol: Abdomen dynamic and pelvis Contrast: Eovist 16 mL COMPARISON: PET/CT dated 12/27/2020, CT dated 11/11/2020, and MRI dated 10/21/2018 FINDINGS: Liver: Diffuse hepatic steatosis. No liver surface nodularity or iron deposition. - Bile ducts: No intra- or extrahepatic biliary duct dilation. - Focal liver lesions: Numerous enhancing and diffusion restricting lesions throughout the liver appear grossly unchanged when compared to recent PET/CT dated 12/27/[address] dated 11/11/2020. No new or suspicious hepatic lesion. For reference, Lesion 1: Location: Segment 7, series 22, image 22 Size: 3.1 cm, previously 3.[address] dated 11/11/20 Imaging features: Arterial hyperenhancement, mild T2 hyperintensity, and diffusion restriction. Characterization: Metastasis. A small focus of T2 hyperintensity along the inferior liver surface is favored to represent scarring. - Vasculature: Conventional hepatic arterial anatomy. The portal and hepatic veins are patent. Unchanged small left renal artery aneurysm. Gallbladder: Surgically absent. Pancreas: Normal. Spleen: Normal. Adrenals: Normal. Kidneys: Unchanged right renal cysts. No hydronephrosis. Bladder: Normal. Reproductive organs: Post surgical changes of hysterectomy. There is stable asymmetric enhancement of the right vaginal cuff which corresponds to an area of increased uptake on recent PET/CT (series 29, image 38). No suspicious adnexal mass. Other Findings: Previously described pulmonary nodules are better evaluated on prior CT. No pleural effusion. Unchanged area of tethering of small bowel within the pelvis. Bowel loops are normal in caliber without evidence of obstruction. A jejunal diverticulum is unchanged. Left lower quadrant ostomy. No ascites. Multiple peritoneal and omental soft tissue nodules are unchanged. She opacities within the right greater than left lung base may represent atelectasis versus sequela of aspiration. For reference, a 6 mm soft tissue nodule inferior to the left kidney is unchanged, previously 7 mm (series 5, image 14. A 15 mm bilobed soft tissue nodule is also unchanged (series 31, image 58). Known right periaortic lymph node is not well visualized on the current exam. Previously described osseous metastatic disease is better evaluated on recent PET/CT. Impression: Stable metastatic disease burden with unchanged liver lesions, unchanged peritoneal and omental nodules, and unchanged asymmetric enhancement and thickening of the right vaginal cuff. No definite new site of disease involvement. Dictated by: Evelyn Sands M.D. The radiology attending physician has personally reviewed this study, and had reviewed and/or edited this written report and agrees with it. Electronically signed by: Loretta English M.D. CT chest with contrast Narrative: EXAMINATION: CT of the chest with intravenous contrast. HISTORY: Neuroendocrine carcinoma. TECHNIQUE: Transaxial computed tomographic images of the chest were obtained after the uneventful administration of 100 mL of Optiray 350 intravenous contrast according to the standard protocol. COMPARISON: PET CT 12/27/2020, CT 11/11/2020. FINDINGS: The thyroid gland is atrophic with small subcentimeter hypoattenuating nodules within it.. No suspicious thoracic adenopathy by size criteria. Heart size is mildly enlarged with no pericardial effusion.. Aberrant right subclavian artery noted. The thoracic aorta is otherwise normal. In the lungs, there is new basilar and peripheral predominant ground glass opacification, reticulation and peribronchovascular thickening. The diffuse pulmonary process appears to obscure the previously visualized pulmonary nodules. No focal consolidation, new suspicious nodularity, pleural effusion or pneumothorax. In the abdomen, there are grossly stable hypervascular metastatic deposits throughout the liver when compared to 11/11/2020, better evaluated on same date MRI. Remainder of the visualized abdomen is unremarkable. No aggressive osseous lesion. Impression: 1. New peripheral and basilar predominant ground glass opacification, reticulation and peribronchovascular thickening in the lungs is suggestive of new organizing pneumonia which may be treatment related. Diffuse nature of this process precludes adequate evaluation of previously seen pulmonary nodules. 2. No CT evidence of progressive metastatic disease in the chest. Dictated by: Edwin Darnell M.D. The radiology attending physician has personally reviewed this study, and had reviewed and/or edited this written report and agrees with it. Electronically signed by: Jasbir Jacob M.D. IMPRESSION AND PLAN: Ms. La Chung is a 70 y.o. Non- female with metastatic neuroendocrine tumor who presents for routine oncologic care. We reviewed the possible everolimus-related pneumonitis and that we will need to discuss possible study treatment with CABINET or other TKI and other options. She will have another CT chest to assess her pneumonitis and see us afterwards, We will then assess if she is eligible for the cabozantinib, We will continue on xgeva and octeotide for now. All of her questions were answered. She understands and was in agreement with the plan of care. Sheknows to call the office in the interim with any symptoms, questions, or concerns. documented in this encounter Plan of Treatment Not on file documented as of this encounter Results * (ABNORMAL) Chromogranin A (05/22/2021 2:48 PM COVER CREASER) Chromogranin A 1083(H) <93 ng/mL [facility] Comment: Impaired renal or hepatic function or treatment with proton pump inhibitors may result in artifactual elevations of Chromogranin A. ADDITIONAL INFORMATION This test was developed and its performance characteristics determined by [facility] in a manner consistent with CLIA requirements. This test has not been cleared or approved by the U.S. Food and Drug Administration. The testing method is a homogeneous time-resolved immunofluorescent assay manufactured by [employer] and performed on the [employer] Kryptor Compact Plus. ? Values obtained with different assay methods or kits may be different and cannot be used interchangeably. ? Test results cannot be interpreted as absolute evidence for the presence or absence of malignant disease. Test Performed by: [facility] [address] [place] [address] School Business Manager: Immanuel Novak M.D. Ph.D.; [facility]# [id number] Blood 05/22/2021 2:48 PM COVER CREASER 05/22/2021 5:59 PM COVER CREASER us Eren Cr MD LAB BLOOD ORDERABLES Final Re sult [facility] Department [place] [address] * Comprehensive metabolic panel (05/22/2021 2:48 PM COVER CREASER) Sodium 140 135 - 145 mmol/L [facility] Comment:Testing performed by : [facility], [address] [place] [phone] Potassium, pl 3.7 3.3 - 4.9 mmol/L [facility] Comment:Testing performed by : [facility], [address] [place] [phone] Chloride 106 97 - 110 mmol/L [facility] Comment:Testing performed by : [facility], [address] [place] [phone] CO2 28 22 - 32 mmol/L [facility] Comment:Testing performed by : [facility], [address] [place] [phone] Anion gap 6 2 - 15 mmol/L [facility] Comment:Testing performed by : [facility], [address] [place] [phone] BUN 8 8 - 25 mg/dL [facility] Comment:Testing performed by : [facility], [address] [place] [phone] Creatinine 0.88 0.60 - 1.10 mg/dL [facility] Comment:Testing performed by : [facility], [address] [place] [phone] Glucose 131 70 - 199 mg/dL CERNER [...] was last revised 2017. Testing performed by: [place] [phone] Calcium 10.1 8.5 - 10.3 mg/dL [facility] Comment:Testing performed by : [address] [phone] Bilirubin, total 0.5 0.1 - 1.2 mg/dL [facility] Comment:Testing performed by : [address] [phone] Protein, pl 6.6 6.5 - 8.5 g/dL [facility] Comment:Testing performed by : [address] [phone] Albumin 4.2 3.5 - 5.0 g/dL [facility] Comment:Testing performed by : [address] [phone] Alk phos 82 40 - 130 Units/L [facility] Comment:Testing performed by : [address] [phone] ALT 16 7 - 45 Units/L [facility] Comment:Testing performed by : [address] [phone] AST 25 10 - 45 Units/L [facility] Comment:Testing performed by : [address] [phone] Blood 05/22/2021 2:48 PM COVER CREASER 05/22/2021 2:50 PM COVER CREASER us Eren Cr MD LAB BLOOD ORDERABLES Final Re sult [facility] Department [place] [address] * (ABNORMAL) CBC with auto differential (05/22/2021 2:48 PM COVER CREASER) WBC 4.2 3.8 - 9.8 K/cumm [facility] Comment:Testing performed by : [facility], [address] [place] [phone] Hgb 12.4 12.1 - 15.1 g/dL [facility] Comment:Testing performed by : [address] [phone] Hct 35.9(L) 36.1 - 44.3 % [facility] Comment:Testing performed by : [facility], [address] [place] [phone] Plt 151 140 - 440 K/cumm [facility] Comment:Testing performed by : [address] [phone] MPV 7.5 6.8 - 10.4 fL [facility] Comment:Testing performed by : [address] [phone] RBC 3.98 3.90 - 5.00 M/cumm [facility] Comment:Testing performed by : [facility], [address] [place] [phone] MCV 90.1 80.0 - 97.6 fL [facility] Comment:Testing performed by : [address] [phone] MCH 31.1 26.7 - 33.7 pg [facility] Comment:Testing performed by : [address] [phone] MCHC 34.5 32.7 - 35.5 g/dL [facility] Comment:Testing performed by : [address] [phone] RDW CV 18.1(H) 11.8 - 14.6 % [facility] Comment:Testing performed by : [facility], [address] [place] [phone] NRBC abs 0.01 0.00 - 0.01 K/cumm [facility] Comment:Testing performed by : [facility], [address] [place] [phone] Blood 05/22/2021 2:48 PM COVER CREASER 05/22/2021 2:50 PM COVER CREASER Result [facility] Eren Cr MD LAB BLOOD ORDERABLES Final Re sult Performing Organization Address [facility] de Phone Number [facility] Department of Laboratories [place], [place] [phone] * (ABNORMAL) Vitamin D 25 hydroxy (05/22/2021 2:48 PM COVER CREASER) [facility] Vitamin D 25-OH 27(L) 30 - 80 ng/mL [facility] Blood 05/22/2021 2:48 PM COVER CREASER 05/22/2021 3:08 PM COVER CREASER Result [facility] Eren Cr MD LAB BLOOD ORDERABLES Final Re sult Performing Organization Address [facility] de Phone Number [facility] Department of Laboratories [place], [place] [phone] * (ABNORMAL) Phosphorus (05/22/2021 2:48 PM COVER CREASER) [facility] Phosphorus, pl 2.0(L) 2.3 - 4.5 mg/dL [facility] Comment:Testing performed by : [facility], [address] [place] [phone] Blood 05/22/2021 2:48 PM COVER CREASER 05/22/2021 2:50 PM COVER CREASER Result [facility] Eren Cr MD LAB BLOOD ORDERABLES Final Re sult Performing Organization Address [facility] Co de Phone Number [facility] Department [place] [address] * (ABNORMAL) Lipid panel (05/22/2021 2:48 PM COVER CREASER) Cholesterol 174 30 - 199 mg/dL [facility] Comment: Interpretive Data Ages < or = [...] on 2018. Triglycerides 215(H) <=149 mg/dL [facility] Comment: Interpretive Data Ages < or = [...] revised on 2018. HDL 62 >=40 mg/dL [facility] [place] Comment: Interpretive Data Ages < or = [...] on 2018. LDL, calculated 69 <=129 mg/dL [facility] Comment: Interpretive Data Ages < [...] revised on 2018. Non-HDL Cholesterol 112 mg/dL [facility] Comment: Interpretive Data Ages < [...] revised on 2018. Chol/HDL ratio 3 [facility] Blood 05/22/2021 2:48 PM COVER CREASER 05/22/2021 3:08 PM COVER CREASER us Eren Cr MD LAB BLOOD ORDERABLES Final Re sult [facility] Department [place] [address] * CT chest with contrast (05/15/2021 4:37 PM COVER CREASER) Anatomical Region Laterality Modality Body N/A Computed Tomogra phy 05/15/2021 6:14 PM COVER CREASER Impressions 05/15/2021 6:14 PM COVER CREASER 1. ??Interval decrease in peripheral and basilar [...] Ace Almanzar MD Narrative 05/15/2021 6:14 PM COVER CREASER EXAMINATION: ??Computed tomography of the chest with [...] ??The osseous structures are intact. Procedure Note Ace Almanzar MD - 05/15/2021 EXAMINATION: Computed tomography [...] obtained Electronically signed by: Ace Almanzar MD Eren Cr MD IMG CT PROCEDURES [...] Date ONCBCN CLINIC APPOINTMENT REQUEST 2 021 04/24/2021 ONCBCN INJECTION APPOINTMENT REQUEST 1 05/08 ONCBCN LAB APPOINTMENT 1 05/22/2021 documented in this encounter Care Teams Mill Hand Plate Mill Relationship Specialty Start Date End Date Julio César Briseno MD PCP - General 10/01/16 Eren Cr MD Referring Physician Medical Oncology 11/25/18 Yohana Bowen MD Radiation Oncologist Radiation Oncology 11/25/18 Sabrina Willard NP [address] [place] [address] Nurse Practitioner Medical Oncology 08/17/20 11/26/21 documented as of this encounter
--- OUTSIDE RECORDS SUMMARY | 2024-06-25 22:26 | XMS_ITS | Encounter Summary ---
Author Organization [facility] Healthcare Address [address] [place] [address] Care Team Providers Care Student Life Advisor Name Role Phone Julio César Briseno MD Primary Care Provider [phone] Eren Cr MD Unavailable [phone] Yohana Bowen MD Unavailable Sabrina Willard NP Unavailable [phone] Reason for Referral * MRI/CAT/PET Scan (Routine) - Closed Specialty Diagnoses / Procedures Referred By Evelyne bowman Referred To Contact Radiology Diagnoses Neuroendocrine carcinoma (HCC) Procedures CT chest abdomen pelvis with contrast Eren Cr MD [address] [address] [place] [address] Phone: tel: fax: [address] [phone] Referral ID Status Reason Start Date Expiration Date Visits Re quested Visits Authorized [id number] Closed 06/19/2021 07/19/2022 1 1 E MARK EXAMINER Reason for Visit * MRI/CAT/PET Scan (Routine) - Closed Specialty Diagnoses / Procedures [facility] Referred To Contact Radiology Diagnoses Neuroendocrine carcinoma (HCC) Procedures CT chest abdomen pelvis with contrast Eren Cr MD [address] [facility] [address] [place] [address] Phone: tel: fax: [address] [phone] Referral ID Status Reason Start Date Expiration Date Visits Re quested Visits Authorized [id number] Closed 06/19/2021 07/19/2022 1 1 Encounter Details Date Type Department Care Team (Latest Contact Info) Description 06/22/2021 7:45 AM TRADE MARK EXAMINER - 06/22/2021 11:59 PM TRADE MARK EXAMINER Hospital Encounter [facility] Radiology [address] [place], [place] [id number] Eren Cr MD [address] [facility] [address] [place] [address] Neuroendocrine carcinoma (CMS/HCC) (HCC) Discharge Disposition: Discharge [...] on file Legal Sex Female 2:41 PM TRADE MARK EXAMINER Gender Identity Not on file Sexual [...] capsuleIndications :supplement Take 1 tablet by mouth scabbler before breakfast 07/04/2016 4 cholecalciferol (VITAMIN D-3) 2,000 unit capsule Take 1 capsule (2,000 Units total) by mouth daily 30 capsule 2 04/25/2019 3 cholestyramine (QUESTRAN) 4 gram packet Take 1 packet by mouth 3 (three) times a day with meals 270 packet 3 09/04/2019 2 clotrimazole-betam ethasone (LOTRISONE) cream Apply 1 Application topically daily as needed (rash) 4 coenzyme X42-gldunoe E 100-5 mg-unit capsuleIndications :supplement Take 1 tablet by mouth scabbler before breakfast 4 denosumab (XGEVA) 120 mg/1.7 [...] CONTRAST Schedule Routine, Read Routine (OP Routine) 06/22/2021 8:21 AM TRADE MARK EXAMINER Neuroendocrine carcinoma (CMS/HCC) (HCC) documented in this encounter Results * CT chest abdomen pelvis with contrast (06/22/2021 8:21 AM TRADE MARK EXAMINER) Anatomical Region Laterality Modality Body N/A Computed Tomogra phy 06/22/2021 9:47 AM TRADE MARK EXAMINER Impressions 06/22/2021 10:56 AM TRADE MARK EXAMINER 1. Stable hepatic, peritoneal/mesenteric, retroperitoneal and vaginal [...] Sergio Flores M.D. Narrative 06/22/2021 10:56 AM TRADE MARK EXAMINER EXAMINATION: ??Computed tomography of the chest, abdomen [...] subcapsular metastases. Dictated by: Jose De Jesus Ousna M.D. The radiology attending physician has personally [...] Once in imaging, contrast, Starting on Lydia 06/22/21 at 0818, For 1 dose Contrast Given 06/22/2021 8:22 AM TRADE MARK EXAMINER 95 mL documented in this encounter Orders Medications Ordered That Brett ht Not Have Been Administered Count Last Ordered Date First Ordered Date ioversoL (OPTIRAY 350) syrin ge syringe 100 mL 1 06/22/2021 documented in this encounter Care Teams Student Life Advisor Relationship Specialty Start Date End Date Julio César Briseno MD PCP - General 10/01/16 Eren Cr MD Referring Physician Medical Oncology 11/25/18 Yohana Bowen MD Radiation Oncologist Radiation Oncology 11/25/18 Sabrina Willard NP [address] [facility] [address] [place] [address] Nurse Practitioner Medical Oncology 08/17/20 11/26/21 documented as of this encounter
--- OUTSIDE RECORDS SUMMARY | 2024-06-25 22:26 | XMS_ITS | Encounter Summary ---
Author Organization [facility] Address [address] [place] [address] Phone Care Team Providers Care Metal Sponge Making Machine Operator Name Role Phone Julio César Briseno MD Primary Care Provider [phone] Eren Cr MD Unavailable [phone] Yohana Bowen MD Unavailable Sabrina Willard NP Unavailable [phone] 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) Procedures [place] OCTREOTIDE INJECTION, DEPOT Octreotide 28 Day Cycles - Carcinoid Eren Cr MD [address] [facility] [address] [place] [address] Phone: tel: fax: [facility] [address] [address] Phone: tel: fax: Referral ID Status Reason Start Date Expiration Date V isits Requested Visits Authorized [id number] Authorized 11/28/2017 02/05/2025 1 150 Encounter Details Date Type Department Care Team (Late st Contact Info) Description 06/19/2021 3:00 PM THEATER TECHNICIAN Office Visit [facility] Oncology [address] [facility] 7th [place] [address] [place] [id number] Eren Cr MD [address] [facility] [address] [place] [address] Neuro-endocrine carcinoma (CMS/HCC) (HCC) (Primary Dx); Malignant [...] on file Legal Sex Female 2:41 PM THEATER TECHNICIAN Gender Identity Not on file Sexual Orientation Straight 02/19/2021 9: 29 AM CDT Occupation Industry Job Start Date Job End Date retired Not on file Not on file Not on file documented as of this encounter Last Filed Vital Signs Vital Sign Reading Time Taken Comments Blood Pressure 112/55 06/19/2021 3:02 PM THEATER TECHNICIAN Pulse 85 06/19/2021 3:02 PM THEATER TECHNICIAN Temperature 36.7 ??C (98.1 ??F) 06/19/2021 3:02 PM CS T Respiratory Rate 16 06/19/2021 3:02 PM THEATER TECHNICIAN Oxygen Saturation 97% 06/19/2021 3:02 PM THEATER TECHNICIAN Inhaled Oxygen Concentration - - Weight 78 kg (172 lb) 06/19/2021 3:02 PM THEATER TECHNICIAN Height - - Body Mass Index 30.47 06/15/2021 4:45 PM THEATER TECHNICIAN documented in this encounter Progress Notes * Eren Cr Jr., MD - 06/19/2021 3:00 PM CST Images from the original note were not included. MEDICAL ONCOLOGY OUTPATIENT ROV NOTE La Chung : 1950 DATE OF VISIT: 06/19/21 Oncology History Overview Note TREATMENT HISTORY: 1. [...] time, she also underwent right colectomy in [facility] OR by Dr. Greyson Reeves. Biopsy revealed [...] modality. Omental deposits are consistentwith metastases. 8. 5/15/19 Gallium dotatate PET: Postsurgical changes of exploratory [...] inflammation and she continued on octreotide alone. However, her MRI done 06/15/2021 showed that the majority of her liver lesions have increased in size and the vaginal cuff lesion also increased in size. Patient denies fever, chill, cough, SOB, rash, pain, N/V, constipation, swelling or bleeding. She states that when she has a pelvic exam, this procedure causes her pain. She was last examined by her PCP/SNUFF PACKING MACHINE OPERATOR in December. She also has issues with hemorrhoids and rectal pain ALLERGIES: Allergies Allergen Reactions ??? Morphine Blisters ??? Ezetimibe-Simvastatin Muscle pain and Unknown Muscle weakness ??? Ramipril Cough ROS: A complete review of systems was performed and was negative other than those mentioned in the aboveinterval history. All other systems negative. OBJECTIVE: Most Recent Vitals: BP: 112/55 Temp: 36.7 ??C (98.1 ??F) Temp src: Oral Pulse: 85 Resp: 16 SpO2: 97 % Weight: 78 kg (172 lb) PHYSICAL EXAM: ECOG PS: 1 GEN: [...] No rashes over exposed skin NEURO: A&Ox4, bill cutter grossly intact by conversation, moving all extremities well, no focal deficits appreciated PSYCH: Mood euthymic, affect appropriate and congruent, speech clear and goal-directed LABS: All laboratories personally reviewed and discussed with patient during office visit, selected values included below. Lab Results Component Value Date WBC 6.9 06/19/2021 HGB 14.4 06/19/2021 HCT 42.1 06/19/2021 MCV 90.0 06/19/2021 LABPLAT 150 06/19/2021 NEUTROABS 5.2 06/19/2021 CMP: Lab Results Component Value Date/Time SODIUM 139 06/19/2021 02:47 PM POTASSIUM 4.0 06/19/2021 02:47 PM CO2 26 06/19/2021 02:47 PM BUNSER 13 06/19/2021 02:47 PM GLUCOSE 107 06/19/2021 02:47 PM CREATININE 0.97 06/19/2021 02:47 PM CALCIUM 10.9 (H) 06/19/2021 02:47 PM CHLORIDE 104 06/19/2021 02:47 PM ALBUMIN 4.6 06/19/2021 02:47 PM AST 20 06/19/2021 02:47 PM ALT 13 06/19/2021 02:47 PM ALKPHOS 96 06/19/2021 02:47 PM BILITOT 0.6 06/19/2021 02:47 PM PROT 7.3 06/19/2021 02:47 PM ANIONGAP 9 06/19/2021 02:47 PM Lab Results Component Value Date MAGNESIUM 1.6 05/03/2019 Lab Results Component Value Date PHOS 2.8 06/19/2021 Lab Results Component Value Date TSH 1.76 01/30/2021 Tumor Marker History Some values may be hidden. Unless noted otherwise, only the newest values recorded on each date aredisplayed. Tumor Markers Latest Ref Range 02/27/21 03/27/21 04/24/21 05/22/21 Chromogranin A <93 ng/mL 1087 (A) 980 (A) 1125 (A) 1083 (A) (A) Abnormal value Comments are available for some flowsheets but are not being displayed. IMAGING: MRI Abdomen Pelvis W WO Contrast Narrative: [...] visualized on today's exam due to technique. Impression: 1. Majority of liver lesions have increased in size, and the vaginal cuff lesion is likely also increased in size, indicating disease progression. Dictated by: Joyce Burgos MD The radiology attending physician has personally reviewed this study, and had reviewed and/or edited this written report and agrees with it. Electronically signed by: Mikey Abernathy M.D. I have personally reviewed the images of the MRI scan 06/15/2021 noting multiple liver lesions whichhad increased in size compared to her 03/23/2021 scans. See below. ASSESSMENT AND PLAN: Ms. La Chung is a 70 y.o. Non- female with metastatic neuroendocrine tumor who presents for routine oncologic care. 1. Metastatic neuroendocrine tumor with liver metastases. We reviewed her MRI results and images noting the enlarging liver lesions consistent with progression. We again discussed her treatment options which include the following: A. Participation in the CABINET study, an [employer] sponsored [place] study randomizing patients to receive cabozantinib vs placebo. The rationale for the study as well as the randomized design of the study discussed. She did not tolerated everolimus previously which resulted in pneumonitis. B. Continue only with octreotide. However, there is already continued progression of her disease. C. PRRT- pros and cons discussed with the patient and her family. Toxicities also discussed. She already had PRRT previously... D. Other clinical studies. After much discussion, she stated that she does want to proceed with discusssing enrolment with theCABINET study. We will have the MOTOR BIKE MECHANIC consent her for the study. I have explained the randomized nature of the study and the voluntary participation. We will also consider SBRT to the vaginal lesion ifthis becomes symptomatic. We will Continue monthly Octreotide injection today, and hold off on xgeva She will call with any issues before next visit if needed. Eren Cr MD Medical Oncology TER TECHNICIAN documented in this encounter Plan of [...] may reflect changes made after this encounter. octreotide (SandoSTATIN) 100 mcg/mL injection Inject 1 mL (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) under the skin every 30 (thirty) days Last dose 11/15/22 denosumab (Xgeva) 120 mg/1.7 mL (70 mg/mL) injection Inject 1.7 mL (120 mg total) under the skin every 28 (twenty-eight ) days added in this encounter Orders Appointment Requests Count Last Ordered Date Fi rst Ordered Date ONCBCN CLINIC APPOINTMENT REQUEST 1 021 documented in this encounter Care Teams Metal Sponge Making Machine Operator Relationship Specialty Start Date End Date Julio César Briseno MD PCP - General 10/01/16 Eren Cr MD Referring Physician Medical Oncology 11/25/18 Yohana Bowen MD Radiation Oncologist Radiation Oncology 11/25/18 Sabrina Willard NP [address] [place] [address] Nurse Practitioner Medical Oncology 08/17/20 11/26/21 documented as of this encounter
--- OUTSIDE RECORDS SUMMARY | 2024-06-25 22:26 | XMS_ITS | Encounter Summary ---
Author Organization [facility] Address [address] [place] [address] Phone Care Team Providers Care Applications Engineer Manufacturing Name Role Phone Julio César Briseno MD Primary Care Provider [phone] Eren Cr MD Unavailable [phone] Yohana Bowen MD Unavailable Sabrina Willard NP Unavailable [phone] 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) Procedures [place] OCTREOTIDE INJECTION, DEPOT Octreotide 28 Day Cycles - Carcinoid Eren Cr MD [address] [facility] [address] [place] [address] Phone: tel: fax: [facility] [address] [address] Phone: tel: fax: Referral ID Status Reason Start Date Expiration Date V isits Requested Visits Authorized [id number] Authorized 11/28/2017 02/05/2025 1 150 Encounter Details Date Type Department Care Team (Late st Contact Info) Description 04/24/2021 4:00 PM CDT Infusion [facility] Oncology [address] [facility] 7[address] [place] [address] Neuroendocrine carcinoma (CMS/HCC) (HCC) (Primary Dx); Malignant [...] on file Legal Sex Female 2:41 PM GUI DEVELOPER Gender Identity Not on file Sexual Orientation Straight 02/19/2021 9: 29 AM CDT Occupation Industry Job Start Date Job End Date retired Not on file Not on file Not on file documented as of this encounter Nursing Notes * Susana Begum - 04/24/2021 4:00 PM CDT Oncology Nursing Note [facility] La Chugn is a 70 y.o. female who presents for octreotide and xgeva Pre-treatment Nursing Assessment Nursing Assessment Appetite:: Fair Diarrhea:: No Constipation:: No Last BM Date: 04/24/21 Existing Patients: Any falls since your last visit? : No Fatigue:: None Mouth Sores:: No Nausea/Vomiting:: No Pain:: No Peripheral Neuropathy: : No Pt states has potential to be ? : N/A Shortness of Breath?: Yes (pt reports as infiltrates in lung tissue-Team following) Lungs auscultated PRN:: No Pt is on oxygen? : No Respiratory Effort Characteristics: Dyspnea exertion Skin Condition/Temp: Warm, Dry Additional Notes: pt reports having more difficulty with breathing after exertion. Team is following this concern as pt reports they have infiltrates in lung tissue. BP: 142/71 Temp: 36.7 ??C (98 ??F) Temp src: Oral Pulse: 104 Resp: 16 SpO2: 97 % Weight: 80.1 kg (176 lb 9.6 oz) Treatment Patient: met treatment parameters La Chung tolerated treatment well. Discharge Plan Discharge instructions given to patient. [...] 120 mg 120 mg, subcutaneous, Once, On Sat04/24/21 at 1730, For 1 dose, Calcium level should be greater than 8 mg/dl Administer injection in upper arm, abdomen or upper thigh Refrigerate. Allow to stand 15 to 30 mins prior to useIndications:Bone metastasis,Neuro-endocrine carcinoma (HCC) Given 04/24/2021 5:15 PM CDT 120 mg Right Lower Abdomen octreotide LAR (SandoSTATIN LAR) extended release intramuscular injection 30 mg 30 mg, intramuscular, Once, On 04/24/21 at 1730, For 1 dose, Refrigerate. For IM intragluteal administration only- alternate gluteal sites. Shake.Indications:Malignan t neoplasm metastatic to liver (HCC),Neuroendocrine carcinoma (HCC) Given 04/24/2021 5:21 PM CDT 30 mg Right Dorsogluteal/Butto ck documented in this encounter Orders Nursing Count Last Ordered Date First Orde red Date ONCBCN NURSING COMMUNICATION [id number] 1 04/24 ONCBCN NURSING COMMUNICATION [id number] 1 1 PHYSICIAN COMMUNICATION ORDER 1 04/24/2021 Appointment Requests Count Last Ordered Date Fi rst Ordered Date ONCBCN INJECTION APPOINTMENT REQUEST 1 04/07 documented in this encounter Care Teams Applications Engineer Manufacturing Relationship Specialty Start Date End Date Julio César Briseno MD PCP - General 10/01/16 Eren Cr MD Referring Physician Medical Oncology 11/25/18 Yohana Bowen MD Radiation Oncologist Radiation Oncology 11/25/18 Sabrina Willard NP [address] [place] [address] Nurse Practitioner Medical Oncology 08/17/20 11/26/21 documented as of this encounter
--- OUTSIDE RECORDS SUMMARY | 2024-06-25 22:26 | XMS_ITS | Encounter Summary ---
Author Organization [facility] Address [address] [place] [address] Phone Care Team Providers Care Lens Polisher Hand Name Role Phone Julio César Briseno MD Primary Care Provider Eren Cr MD Unavailable [phone] Yohana Bowen MD Unavailable Sabrina Willard NP Unavailable [phone] Reason for Visit * Reason Onset Date Comments CT scan results 05/17/2021 Encounter Details Date Type Department Care Team (Late st Contact Info) Description 05/17/2021 Telephone [facility] Oncology [address] [facility] 7th [place] [address] [place] [address] Eren Cr MD [address] [facility] [address] [place] [address] CT scan results Social History Tobacco Use Types Packs/Day Years [...] on file Legal Sex Female 2:41 PM DEBONER Gender Identity Not on file Sexual Orientation Straight 02/19/2021 9: 29 AM CDT Occupation Industry Job Start Date Job End Date retired Not on file Not on file Not on file documented as of this encounter Miscellaneous Notes * Telephone Encounter - Sola Heredia - 05/17/2021 12:55 PM CST Spoke with patient and let her know that her CT chest looks improved, inflammation is resolving [email or web address] faxed over to her PCP office for her follow up appointment with them on Saturday. Patient will follow up on Saturday at her visit with Dr. Cr as scheduled. NER documented in this encounter Plan of Treatment Not on file documented as of this encounter Visit Diagnoses Not on filedocumented in this encounter Care Teams Lens Polisher Hand Relationship Specialty Start Date End Date Julio César Briseno MD PCP - General 10/01/16 Eren Cr MD Referring Physician Medical Oncology 11/25/18 Yohana Bowen MD Radiation Oncologist Radiation Oncology 11/25/18 Sabrina Willard NP [address] [place] [address] Nurse Practitioner Medical Oncology 08/17/20 11/26/21 documented as of this encounter
--- OUTSIDE RECORDS SUMMARY | 2024-06-25 22:26 | XMS_ITS | Encounter Summary ---
Author Organization [facility] Address [address] [place] [address] Phone Care Team Providers Care Drill Press Operator Name Role Phone Julio César Briseno MD Primary Care Provider [phone] Eren Cr MD Unavailable [phone] Yohana Bowen MD Unavailable Sabrina Willard NP Unavailable [phone] Reason for Visit * Reason Comments Port Draw Encounter Details Date Type Department Care Team (Late st Contact Info) Description 06/21/2021 9:45 AM DIRECTOR OF DISTRICT OFFICE Clinical Support [facility] Oncology [address] [facility] 7th [place] [address] [place] [address] Social History Tobacco Use Types [...] 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 OF DISTRICT OFFICE Gender Identity Not on file Sexual Orientation Straight 02/19/2021 9: 29 AM CDT Occupation Industry Job Start Date Job End Date retired Not on file Not on file Not on file documented as of this encounter Plan of Treatment Not on file documented as of this encounter Visit Diagnoses Not on filedocumented in this encounter Care Teams Drill Press Operator Relationship Specialty Start Date End Date Julio César Briseno MD PCP - General 10/01/16 Eren rC MD Referring Physician Medical Oncology 11/25/18 Yohana Bowen MD Radiation Oncologist Radiation Oncology 11/25/18 Sabrina Willard NP [address] [place] [address] Nurse Practitioner Medical Oncology 08/17/20 11/26/21 documented as of this encounter
--- OUTSIDE RECORDS SUMMARY | 2024-06-25 22:26 | XMS_ITS | Encounter Summary ---
Author Organization [facility] Address [address] [place] [address] Phone Care Team Providers Care Remediation Consultant Name Role Phone Julio César Briseno MD Primary Care Provider [phone] Eren Cr MD Unavailable Yohana Bowen MD Unavailable Sabrina Willard NP Unavailable [phone] Reason for Visit * Reason Onset Date Comments Appointment 06/20/2021 Encounter Details Date Type Department Care Team (Late st Contact Info) Description 06/20/2021 Telephone [facility] [address] [facility] 7th [place] [address] Kyle Maharaj RMA Appointment Social History Tobacco Use Types Packs/Day [...] on file Legal Sex Female 2:41 PM ADMINISTRATIVE TECH Gender Identity Not on file Sexual Orientation Straight 02/19/2021 9: 29 AM CDT Occupation Industry Job Start Date Job End Date retired Not on file Not on file Not on file documented as of this encounter Miscellaneous Notes * Telephone Encounter - NickoKyle loaiza RMA - 06/20/2021 9:05 AM ADMINISTRATIVE TECH Patient has been made aware of the DOS time and location; pre arrival instructions were given NISTRATIVE TECH * Telephone Encounter - Nicko GraceleoISABELLA - 06/20/2021 9:02 AM ADMINISTRATIVE TECH ----- Message from Sola Heredia sent at 06/19/2021 5:25 PM ADMINISTRATIVE TECH ----- Regarding: RE: appt. req Just added them, thank you, sorry for the delay ----- Message ----- From: Kyle Maharaj RMA Sent: 06/19/2021 5:20 PM ADMINISTRATIVE TECH To: [facility] Eren Cr Clinical Support Subject: appt. req Good afternoon Will the patient need any addtl appts., is so please enter in the Active Appt. Requests Thanking you in advance NISTRATIVE TECH documented in this encounter Plan of Treatment Not on file documented as of this encounter Visit Diagnoses Not on filedocumented in this encounter Care Teams Remediation Consultant Relationship Specialty Start Date End Date Julio César Briseno MD PCP - General 10/01/16 Eren Cr MD Referring Physician Medical Oncology 11/25/18 Yohana Bowen MD Radiation Oncologist Radiation Oncology 11/25/18 Sabrina Willard, CECILIA [address] [place] [address] Nurse Practitioner Medical Oncology 08/17/20 11/26/21 documented as of this encounter
--- OUTSIDE RECORDS SUMMARY | 2024-06-25 22:27 | XMS_ITS | Encounter Summary ---
Author Organization [facility] Address [address] [place] [address] Phone Care Team Providers Care E Commerce Manager Name Role Phone Julio César Briseno MD Primary Care Provider [phone] Eren Cr MD Unavailable [phone] Yohana Bowen MD Unavailable Sabrina Willard NP Unavailable Encounter Details Date Type Department Care Team (Late st Contact Info) Description 02/20/2021 Orders Only [facility] Oncology [address] [facility] 7th [place] [address] [place] [address] Eren Cr MD [address] [facility] [address] [place] [address] Neuroendocrine carcinoma (CMS/HCC) (HCC) (Primary Dx); Diarrhea, unspecified type Social History Tobacco Use Types Packs/Day [...] on file 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 Gender Identity Not on file Sexual Orientation Straight 02/19/2021 9: 29 AM CDT Occupation Industry Job Start Date Job End Date retired Not on file Not on file Not on file documented as of this encounter Plan of Treatment Not on file documented as of this encounter Results * (ABNORMAL) Comprehensive metabolic panel (02/20/2021 1:37 PM CDT) [facility] Sodium 141 135 - 145 mmol/L [facility] Potassium, pl 3.8 3.3 - 4.9 mmol/L [facility] Comment:Hemolyzed; Potassium value may be falsely elevated by as much as 0.3-0.5 mmol/L. Suggest redraw and reanalysis. Chloride 107 97 - 110 mmol/L [facility] CO2 25 22 - 32 mmol/L [facility] Anion gap 9 2 - 15 mmol/L [facility] BUN 16 8 - 25 mg/dL [facility] Creatinine 0.99 0.60 - 1.10 mg/dL [facility] Glucose 141 70 - 199 mg/dL [facility] 2017. Calcium 9.9 8.5 - 10.3 mg/dL [facility] Bilirubin, total 0.3 0.1 - 1.2 mg/dL [facility] Protein, pl 6.7 6.5 - 8.5 g/dL [facility] Albumin 4.0 3.5 - 5.0 g/dL [facility] Alk phos 140(H) 40 - 130 Units/L [facility] ALT 42 7 - 45 Units/L [facility] AST 46(H) 10 - 45 Units/L [facility] Comment:Hemolyzed; result ma y be falsely elevated Blood 02/20/2021 1:37 PM CDT 02/20/2021 2:13 PM CDT Eren Cr MD LAB BLOOD ORDERABLES Final Re sult Performing Organization Address [facility]/ZIP Co de Phone Number [facility] Department [place] [address] * (ABNORMAL) CBC with auto differential (02/20/2021 1:37 PM CDT) Pathologist [facility] WBC 2.5(L) 3.8 - 9.9 K/cumm [facility] Hgb 11.6(L) 11.9 - 15.5 g/dL [facility] Hct 33.9(L) 35.6 - 45.5 % [facility] Plt 100(L) 150 - 400 K/cumm [facility] MPV 10.4 9.1 - 12.3 fL [facility] RBC 3.88(L) 3.90 - 5.20 M/cumm [facility] MCV 87.4 81.3 - 96.4 fL [facility] MCH 29.9 27.1 - 33.3 pg [facility] MCHC 34.2 32.3 - 35.7 g/dL [facility] RDW CV 12.4 11.1 - 14.9 % [facility] RDW SD 39.5 35.7 - 48.1 fL [facility] NRBC abs 0.00 0.00 - 0.01 K/cumm [facility] Blood 02/20/2021 1:37 PM CDT 02/20/2021 2:13 PM CDT Eren Cr MD LAB BLOOD ORDERABLES Final Re sult [facility] [place] [address] documented in this encounter Visit Diagnoses Diagnosis Neuroendocrine carcinoma (HCC)- Primary Other malignant neoplasm of unspecified site Diarrhea, unspecified type documented in this encounter Care Teams E Commerce Manager Relationship Specialty Start Date End Date Julio César Briseno MD PCP - General 10/01/16 Eren Cr MD Referring Physician Medical Oncology 11/25/18 Yohana Bowen MD Radiation Oncologist Radiation Oncology 11/25/18 Sabrina Willard NP [address] [place] [address] Nurse Practitioner Medical Oncology 08/17/20 11/26/21 documented as of this encounter
--- OUTSIDE RECORDS SUMMARY | 2024-06-25 22:27 | XMS_ITS | Encounter Summary ---
Author Organization 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) Procedures MRI Abdomen Pelvis W WO Contrast Eren Cr MD [facility] [address] [place] [address] Phone: tel: fax: [address] [address] Referral ID Status Reason Start Date Expiration Date Visits Re quested Visits Authorized [id number] Closed 02/27/2021 03/29/2022 1 1 Reason for Visit * MRI/CAT/PET Scan (Routine) - Closed Specialty Diagnoses / Procedures Referred By Contac Referred To Contact Radiology Diagnoses Neuroendocrine carcinoma (HCC) 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) Procedures MRI Abdomen Pelvis W WO Contrast Eren Cr MD [address] [facility] [address] [place] [address] Phone: tel: fax: [facility] [address] [facility] [place] [address] Referral ID Status Reason Start Date Expiration Date Visits Re quested Visits Authorized [id number] Closed 02/27/2021 03/29/2022 1 1 Encounter Details Date Type Department Care Team (Latest Contact Info) Description 03/23/2021 2:19 PM CDT - 03/23/2021 11:59 PM CDT Hospital Encounter [facility] [address] [place] [id number] Eren Cr MD [address] [facility] [address] [place] [address] Neuroendocrine carcinoma (CMS/HCC) (HCC); Malignant neoplasm metastatic [...] file 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 Gender Identity Not on file Sexual [...] capsuleIndications :supplement Take 1 tablet by mouth talent partner before breakfast 07/04/2016 4 cholecalciferol (VITAMIN D-3) 2,000 unit capsule Take 1 capsule (2,000 Units total) by mouth daily 30 capsule 2 04/25/2019 3 cholestyramine (QUESTRAN) 4 gram packet Take 1 packet by mouth 3 (three) times a day with meals 270 packet 3 09/04/2019 2 clotrimazole-betam ethasone (LOTRISONE) cream Apply 1 Application topically daily as needed (rash) 4 coenzyme [id number] 100-5 mg-unit capsuleIndications :supplement Take 1 tablet by mouth talent partner before breakfast 4 denosumab (XGEVA) 120 mg/1.7 [...] needed for pain 8 tablet 11/20/2020 1 triamcinolone (KENALOG) 0.1 % ointment Apply [...] CONTRAST Schedule Routine, Read Routine (OP Routine) 03/23/2021 6:22 PM CDT 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) documented in this encounter Results * MRI Abdomen Pelvis W WO Contrast (03/23/2021 6:22 PM CDT) Anatomical Region Laterality Modality Body N/A Magnetic Resonan ce 03/24/2021 11:3 7 AM CDT Impressions 03/24/2021 6:07 PM CDT Stable metastatic disease burden with unchanged liver lesions, unchanged peritoneal and omental nodules, and unchanged asymmetric enhancement and thickening of the right vaginal cuff. ??No definite new site of disease involvement. Dictated by: Evelyn Sands M.D. The radiology attending physician has personally reviewed this study, and had reviewed and/or edited this written report and agrees with it. Electronically signed by: Loretta English M.D. Narrative 03/24/2021 6:07 PM CDT EXAMINATION: 1. MAGNETIC RESONANCE IMAGING OF THE ABDOMEN WITHOUT AND WITH CONTRAST 2. 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 Status post Lutathera therapy completed 08/05/2019. ??He is being treated with Denosumab and octreotide started 11/03/2017. ?? TECHNIQUE: ??MRI of the abdomen and pelvis was performed prior to and following intravenous administration of gadolinium contrast. ?? Protocol: Abdomen dynamic and pelvis Contrast: Eovist 16 mL COMPARISON: PET/CT dated 12/27/2020, CT dated 11/11/2020, and MRI dated 10/21/2018 FINDINGS: Liver: Diffuse hepatic steatosis. ??No liver surface nodularity or iron deposition. - Bile ducts: No intra- or extrahepatic biliary duct dilation. - Focal liver lesions: Numerous enhancing and diffusion restricting lesions throughout the liver appear grossly unchanged when compared to recent PET/CT dated 12/27/[address] dated 11/11/2020. ??No new or suspicious hepatic lesion. ??For reference, Lesion 1: Location: Segment 7, series 22, image 22 Size: 3.1 cm, previously 3.[address] dated 11/11/20 Imaging features: Arterial hyperenhancement, mild T2 hyperintensity, and diffusion restriction. Characterization: Metastasis. A small focus of T2 hyperintensity along the inferior liver surface is favored to represent scarring. - Vasculature: Conventional hepatic arterial anatomy. ??The portal and hepatic veins are patent. Unchanged small left renal artery aneurysm. Gallbladder: Surgically absent. Pancreas: Normal. Spleen: Normal. Adrenals: Normal. Kidneys: Unchanged right renal cysts. ??No hydronephrosis. Bladder: Normal. Reproductive organs: Post surgical changes of hysterectomy. ??There is stable asymmetric enhancement of the right vaginal cuff which corresponds to an area of increased uptake on recent PET/CT (series 29, image 38). No suspicious adnexal mass. Other Findings: Previously described pulmonary nodules are better evaluated on prior CT. ??No pleural effusion. ??Unchanged area of tethering of small bowel within the pelvis. Bowel loops are normal in caliber without evidence of obstruction. ??A jejunal diverticulum is unchanged. Left lower quadrant ostomy. No ascites. ?? Multiple peritoneal and omental soft tissue nodules are unchanged. She opacities within the right greater than left lung base may represent atelectasis versus sequela of aspiration. ??For reference, a 6 mm soft tissue nodule inferior to the left kidney is unchanged, previously 7 mm (series 5, image 14. A 15 mm bilobed soft tissue nodule is also unchanged (series 31, image 58). Known right periaortic lymph node is not well visualized on the current exam. Previously described osseous metastatic disease is better evaluated on recent PET/CT. Procedure Note Loretta English MD - 03/24/2021 EXAMINATION: 1. MAGNETIC RESONANCE IMAGING OF THE [...] disease is better evaluated on recent PET/CT. IMPRESSION: Stable metastatic disease burden with unchanged liver lesions, unchanged peritoneal and omental nodules, and unchanged asymmetric enhancement and thickening of the right vaginal cuff. No definite new site of disease involvement. Dictated by: Evelyn Sands M.D. The radiology attending physician has personally reviewed this study, and had reviewed and/or edited this written report and agrees with it. Electronically signed by: Loretta English M.D. 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 80.9 kg), intravenous, Once in imaging, contrast, Starting on Lydia 03/23/21 at 1802, For 1 dose, Imaging Protocol Orders Contrast Given 03/23/2021 6:02 PM CDT 16 mL documented in this encounter Orders Medications Ordered That Brett ht Not Have Been Administered Count Last Ordered Date First Ordered Date gadoxetate (EOVIST) 0.25 mmo l/mL (181.43 mg/mL) injection 16.18 mL 1 03/23/2021 documented in this encounter Care Teams Claims Support Specialist Relationship Specialty Start Date End Date Julio César Briseno MD PCP - General 10/01/16 Eren Cr MD Referring Physician Medical Oncology 11/25/18 Yohana Bowen MD Radiation Oncologist Radiation Oncology 11/25/18 Sabrina Willard NP [address] [place] [address] Nurse Practitioner Medical Oncology 08/17/20 11/26/21 documented as of this encounter
--- OUTSIDE RECORDS SUMMARY | 2024-06-25 22:27 | XMS_ITS | Encounter Summary ---
Author Organization [facility] Address [address] [place] [address] Phone Care Team Providers Care Adobe Block Maker Name Role Phone Julio César Briseno MD Primary Care Provider [phone] Eren Cr MD Unavailable Yohana Bowen MD Unavailable Sabrina Willard NP Unavailable [phone] Encounter Details Date Type Department Care Team (Late st Contact Info) Description 03/09/2021 7:15 AM CDT Lab [facility] Oncology [address] [facility] Advanced Medicine 7th [place] [address] [place] [address] Neuroendocrine carcinoma (CMS/HCC) (HCC); Dehydration; CINV (chemotherapy-induced nausea and [...] on file 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 Gender Identity Not on file Sexual Orientation Straight 02/19/2021 9: 29 AM CDT Occupation Industry Job Start Date Job End Date retired Not on file Not on file Not on file documented as of this encounter Last Filed Vital Signs Vital Sign Reading Time Taken Comments Blood Pressure 154/79 03/09/2021 7:00 AM CDT Pulse 87 03/09/2021 7:00 AM CDT Temperature - - Respiratory Rate - - Oxygen Saturation 97% 03/09/2021 7:00 AM CDT Inhaled Oxygen Concentration - - Weight - - Height - - Body Mass Index - - documented in this encounter Nursing Notes * Felicity Edmond RN - 03/09/2021 7:15 AM CDT Patient states she has had dizziness for a while. Patient walked back for labs. Iv placed and labs drawn. Vs obtained. Patient placed in wheelchair and taken to treatment. documented in this encounter Plan of Treatment Not on file documented as of this encounter Procedures Procedure Name Priority Date/Time Associated Diagnosis Comments MORPHOLOGIC SCREEN Routine 03/09/2021 7: 20 AM CDT Neuroendocrine carcinoma (CMS/HCC) (HCC) Dehydration CINV (chemotherapy-anshu ronny nausea and vomiting) EGFR Routine 03/09/2021 7:20 AM CDT Neuroendocrine carcinoma (CMS/HCC) (HCC) Dehydration CINV (chemotherapy-anshu ronny nausea and vomiting) DIFFERENTIAL AUTO Routine 03/09/2021 7:2 0 AM CDT Neuroendocrine carcinoma (CMS/HCC) (HCC) Dehydration CINV (chemotherapy-anshu ronny nausea and vomiting) CBC WITH AUTO DIFFERENTIAL Routine 03/09/2021 7:20 AM CDT Neuroendocrine carcinoma (CMS/HCC) (HCC) Dehydration CINV (chemotherapy-anshu ronny nausea and vomiting) COMPREHENSIVE METABOLIC PANEL Routine 03/09/2021 7:20 AM CDT Neuroendocrine carcinoma (CMS/HCC) (HCC) Dehydration CINV (chemotherapy-anshu ronny nausea and vomiting) documented in this encounter Results * (ABNORMAL) eGFR (03/09/2021 7:20 AM CDT) [facility] eGFR 48(L) 90 - 130 mL/min/1.7 3 m2 JASON [...] was last reviewed 2020 Testing performed by: [facility], [address] [place] [phone] Blood 03/09/2021 7:20 AM CDT 03/09/2021 7:27 AM CDT us Eren Cr MD LAB BLOOD ORDERABLES Final Re sult [facility] [place] [address] * Morphologic screen (03/09/2021 7:20 AM CDT) [facility] Morphologic Screen Original results obtained required verification by peripheral smear. [facility] Blood 03/09/2021 7:20 AM CDT 03/09/2021 7:27 AM CDT us Eren Cr MD LAB BLOOD ORDERABLES Final Re sult [facility] [place] [address] * (ABNORMAL) Differential, auto (03/09/2021 7:20 AM CDT) [facility] Neutrophil abs 1.6(L) 1.8 - 6.6 K/cumm [facility] Comment:Testing performed by : [facility], [address] [place] [phone] Lymphocyte abs 0.2(L) 1.2 - 3.3 K/cumm [facility] Comment:Testing performed by : [facility], [address] [place] [phone] Monocyte abs 0.4 0.2 - 1.2 K/cumm [facility] Comment:Testing performed by : [facility], [address] [place] [phone] Eosinophil abs 0.1 0.0 - 0.5 K/cumm [facility] Comment:Testing performed by : [facility], [address] [place] [phone] Basophil abs 0.0 0.0 - 0.2 K/cumm [facility] Comment:Testing performed by : [facility], [address] [place] [phone] Neutrophil pct 67.5 % [facility] Comment: Interpretive Data Percent cell count reference ranges are not reported, since discordance with absolute values may lead to misinterpretation of CBC data. Current Interpretive Data was last revised on 2017. Testing performed by: [facility], [address] [place] [phone] Lymphocyte pct 8.0 % [facility] Comment: Interpretive Data Percent cell count reference ranges are not reported, since discordance with absolute values may lead to misinterpretation of CBC data. Current Interpretive Data was last revised on 2017. Testing performed by: [facility], [address] [place] [phone] Monocyte pct 17.7 % [facility] Comment:Testing performed by : [facility], [address] [place] [phone] Eosinophil pct 5.9 % [facility] Comment:Testing performed by : [facility], [address] [place] [phone] Basophil pct 0.9 % [facility] Comment:Testing performed by : [facility], [address] [place] [phone] Blood 03/09/2021 7:20 AM CDT 03/09/2021 7:27 AM CDT Eren Cr MD LAB BLOOD ORDERABLES Final Re [facility] [place] [address] * (ABNORMAL) CBC with auto differential (03/09/2021 7:20 AM CDT) WBC 2.3(L) 3.8 - 9.8 K/cumm [facility] Comment:Testing performed by : [facility], [address] [place] [phone] Hgb 11.8(L) 12.1 - 15.1 g/dL [facility] Comment:Testing performed by : [facility], [address] [place] [phone] Hct 35.3(L) 36.1 - 44.3 % [facility] Comment:Testing performed by : [facility], [address] [place] [phone] Plt 78(L) 140 - 440 K/cumm [facility] Comment:Testing performed by : [address] [address] MPV 8.3 6.8 - 10.4 fL [facility] Comment:Testing performed by : [facility], [address] [place] [phone] RBC 4.03 3.90 - 5.00 M/cumm [facility] Comment:Testing performed by : [facility], [address] [place] [phone] MCV 87.5 80.0 - 97.6 fL [facility] Comment:Testing performed by : [address] [address] MCH 29.3 26.7 - 33.7 pg [facility] Comment:Testing performed by : [facility], [address] [place] [phone] MCHC 33.4 32.7 - 35.5 g/dL [facility] Comment:Testing performed by : [address] [phone] RDW CV 13.1 11.8 - 14.6 % [facility] Comment:Testing performed by : [facility], [address] [place] [phone] NRBC abs 0.00 0.00 - 0.01 K/cumm [facility] Comment:Testing performed by : [facility], [address] [place] [phone] Blood 03/09/2021 7:20 AM CDT 03/09/2021 7:27 AM CDT Eren Cr MD LAB BLOOD ORDERABLES Final Re sult [facility] Department of Laboratories [place], [place] [id number] * (ABNORMAL) Comprehensive metabolic panel (03/09/2021 7:20 AM CDT) Sodium 137 135 - 145 mmol/L [facility] Comment:Testing performed by : [address] [phone] Potassium, pl 4.2 3.3 - 4.9 mmol/L [facility] Comment:Testing performed by : [address] [address] Chloride 105 97 - 110 mmol/L [facility] Comment:Testing performed by : [facility], [address] [place] [phone] CO2 20(L) 22 - 32 mmol/L [facility] Comment:Testing performed by : [facility], [address] [place] [phone] Anion gap 12 2 - 15 mmol/L [facility] Comment:Testing performed by : [facility], [address] [place] [phone] BUN 16 8 - 25 mg/dL [facility] Comment:Testing performed by : [facility], [address] [place] [phone] Creatinine 1.14(H) 0.60 - 1.10 mg/dL [facility] Comment:Testing performed by : [facility], [address] [place] [phone] Glucose 227(H) 70 - 199 mg/dL [facility] Comment: [...] was last revised 2017. Testing performed by: [facility], [address] [place] [phone] Calcium 10.0 8.5 - 10.3 mg/dL [facility] Comment:Testing performed by : [facility], [address] [place] [phone] Bilirubin, total 0.3 0.1 - 1.2 mg/dL [facility] Comment:Testing performed by : [facility], [address] [place] [phone] Protein, pl 6.5 6.5 - 8.5 g/dL [facility] Comment:Testing performed by : [facility], [address] [place] [phone] Albumin 3.7 3.5 - 5.0 g/dL [facility] Comment:Testing performed by : [facility], [address] [facility] [phone] Alk phos 121 40 - 130 Units/L [facility] Comment:Testing performed by : [facility], [address] [facility] [phone] ALT 31 7 - 45 Units/L [facility] Comment:Testing performed by : [facility], [address] [place] [phone] AST 44 10 - 45 Units/L [facility] Comment:Testing performed by : [facility], [address] [place] [phone] Blood 03/09/2021 7:20 AM CDT 03/09/2021 7:27 AM CDT us Eren Cr MD LAB BLOOD ORDERABLES Final Re sult [facility] [place] [address] documented in this encounter Visit Diagnoses Diagnosis Neuroendocrine carcinoma (HCC) Other malignant neoplasm of unspecified site Dehydration CINV (chemotherapy-induced nausea and vomiting) documented in this encounter Orders Appointment Requests Count Last Ordered Date Fi rst Ordered Date ONCBCN LAB APPOINTMENT 1 03/09/2021 documented in this encounter Care Teams Adobe Block Maker Relationship Specialty Start Date End Date Julio César Briseno MD PCP - General 10/01/16 Eren Cr MD Referring Physician Medical Oncology 11/25/18 Yohana Bowen MD Radiation Oncologist Radiation Oncology 11/25/18 Sabrina Willard NP [address] [place] [address] Nurse Practitioner Medical Oncology 08/17/20 11/26/21 documented as of this encounter
--- OUTSIDE RECORDS SUMMARY | 2024-06-25 22:27 | XMS_ITS | Encounter Summary ---
Author Organization [facility] Address [address] [place] [address] Phone Care Team Providers Care Director Of Supply Chain Name Role Phone Julio César Briseno MD Primary Care Provider Eren Cr MD Unavailable [phone] Yohana Bowen MD Unavailable Sabrina Willard NP Unavailable [phone] Encounter Details Date Type Department Care Team (Latest Contact Info) Description 03/17/2021 7:30 AM CDT Clinical Support [facility] Oncology [facility] 7th [place] [address] [place] [address] Neuro-endocrine carcinoma (CMS/HCC) (HCC) Social History Tobacco [...] on file 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 Gender Identity Not on file Sexual Orientation Straight 02/19/2021 9: 29 AM CDT Occupation Industry Job Start Date Job End Date retired Not on file Not on file Not on file documented as of this encounter Plan of Treatment Not on file documented as of this encounter Procedures Procedure Name Priority Date/Time Associated Diagnosis Comments EGFR Routine 03/17/2021 7:50 AM CDT Neuro-endocrine carcinoma (CMS/HCC) (HCC) DIFFERENTIAL AUTO Routine 03/17/2021 7:5 0 AM CDT Neuro-endocrine carcinoma (CMS/HCC) (HCC) CBC WITH AUTO DIFFERENTIAL Routine 03/17/2021 7:50 AM CDT Neuro-endocrine carcinoma (CMS/HCC) (HCC) COMPREHENSIVE METABOLIC PANEL Routine 03/17/2021 7:50 AM CDT Neuro-endocrine carcinoma (CMS/HCC) (HCC) documented in this encounter Results * (ABNORMAL) eGFR (03/17/2021 7:50 AM CDT) eGFR 71(L) 90 - 130 mL/min/1.7 3 m2 [facility] Comment: Interpretive Data Reference Interval [...] was last reviewed 2020 Testing performed by: [facility], [address] [place] [phone] Blood 03/17/2021 7:50 AM CDT 03/17/2021 7:56 AM CDT Eren Cr MD LAB BLOOD ORDERABLES Final Re sult [facility] Department [place] [address] * (ABNORMAL) Differential, auto (03/17/2021 7:50 AM CDT) Neutrophil abs 2.1 1.8 - 6.6 K/cumm [facility] Comment:Testing performed by : [facility], [address] [place] [phone] Lymphocyte abs 0.2(L) 1.2 - 3.3 K/cumm [facility] Comment:Testing performed by : [facility], [address] [place] [phone] Monocyte abs 0.5 0.2 - 1.2 K/cumm [facility] Comment:Testing performed by : [facility], [address] [place] [address] Eosinophil abs 0.1 0.0 - 0.5 K/cumm [facility] Comment:Testing performed by : [facility], [address] [place] [phone] Basophil abs 0.0 0.0 - 0.2 K/cumm [facility] Comment:Testing performed by : [address] [phone] Neutrophil pct 71.7 % [facility] Comment: Interpretive Data Percent cell count reference ranges are not reported, since discordance with absolute values may lead to misinterpretation of CBC data. Current Interpretive Data was last revised on 2017. Testing performed by: [facility], [address] [place] [phone] Lymphocyte pct 5.9 % [facility] Comment: Interpretive Data Percent cell count reference ranges are not reported, since discordance with absolute values may lead to misinterpretation of CBC data. Current Interpretive Data was last revised on 2017. Testing performed by: [facility], [address] [place] [phone] Monocyte pct 17.5 % [facility] Comment:Testing performed by : [facility], [address] [place] [phone] Eosinophil pct 4.3 % [facility] Comment:Testing performed by : [facility], [address] [place] [phone] Basophil pct 0.6 % [facility] Comment:Testing performed by : [address] [phone] Blood 03/17/2021 7:50 AM CDT 03/17/2021 7:56 AM CDT us Eren Cr MD LAB BLOOD ORDERABLES Final Re s[facility] Department [place] [address] * (ABNORMAL) CBC with auto differential (03/17/2021 7:50 AM CDT) WBC 2.9(L) 3.8 - 9.8 K/cumm [facility] Comment:Testing performed by : [facility], [address] [place] [phone] Hgb 11.3(L) 12.1 - 15.1 g/dL [facility] Comment:Testing performed by : [address] [address] Hct 33.0(L) 36.1 - 44.3 % [facility] Comment:Testing performed by : [address] [phone] Plt 95(L) 140 - 440 K/cumm [facility] Comment:Testing performed by : [facility], [address] [place] [address] MPV 8.1 6.8 - 10.4 fL [facility] Comment:Testing performed by : [facility], [address] [place], [place] [phone] RBC 3.89(L) 3.90 - 5.00 M/cumm [facility] Comment:Testing performed by : [facility], [address] [place], [place] [phone] MCV 84.9 80.0 - 97.6 fL [facility] Comment:Testing performed by : [facility], [address] [place] [phone] MCH 29.0 26.7 - 33.7 pg [facility] Comment:Testing performed by : [place] [phone] MCHC 34.2 32.7 - 35.5 g/dL [facility] Comment:Testing performed by : [facility], [address] [place] [phone] RDW CV 13.9 11.8 - 14.6 % [facility] Comment:Testing performed by : [address] [phone] NRBC abs 0.00 0.00 - 0.01 K/cumm [facility] Comment:Testing performed by : [facility], [address] [place] [phone] Blood 03/17/2021 7:50 AM CDT 03/17/2021 7:56 AM CDT us Eren Cr MD LAB BLOOD ORDERABLES Final Re sult [facility] Department [place] [address] * (ABNORMAL) Comprehensive metabolic panel (03/17/2021 7:50 AM CDT) Sodium 137 135 - 145 mmol/L [facility] Comment:Testing performed by : [facility], [address] [place] [phone] Potassium, pl 3.4 3.3 - 4.9 mmol/L [facility] Comment:Testing performed by : [facility], [address] [place] [phone] Chloride 107 97 - 110 mmol/L [facility] Comment:Testing performed by : [facility], [address] [place] [phone] CO2 21(L) 22 - 32 mmol/L [facility] Comment:Testing performed by : [facility], [address] [place] [phone] Anion gap 10 2 - 15 mmol/L [facility] Comment:Testing performed by : [facility], [address] [place] [phone] BUN 10 8 - 25 mg/dL [facility] Comment:Testing performed by : [facility], [address] [place] [phone] Creatinine 0.82 0.60 - 1.10 mg/dL [facility] Comment:Testing performed by : [facility], [address] [place] [phone] Glucose 151 70 - 199 mg/dL [facility] Comment: [...] was last revised 2017. Testing performed by: [facility], [address] [place] [phone] Calcium 9.9 8.5 - 10.3 mg/dL [facility] Comment:Testing performed by : [facility], [address] [place] [phone] Bilirubin, total 0.4 0.1 - 1.2 mg/dL [facility] Comment:Testing performed by : [facility], [address] [place] [phone] Protein, pl 6.6 6.5 - 8.5 g/dL [facility] Comment:Testing performed by : [facility], [address] [place] [phone] Albumin 3.7 3.5 - 5.0 g/dL [facility] Comment:Testing performed by : [facility], [address] [place] [phone] Alk phos 165(H) 40 - 130 Units/L [facility] Comment:Testing performed by : [facility], [address] [place] [phone] ALT 28 7 - 45 Units/L [facility] Comment:Testing performed by : [facility], [address] [place] [phone] AST 36 10 - 45 Units/L [facility] Comment:Testing performed by : [facility], [address] [place] [phone] Blood 03/17/2021 7:50 AM CDT 03/17/2021 7:56 AM CDT us Eren Cr MD LAB BLOOD ORDERABLES Final Re sult [facility] Department of Laboratories [place], [place] [id number] documented in this encounter Visit Diagnoses Diagnosis Neuro-endocrine carcinoma (HCC) Other malignant neoplasm of unspecified site documented in this encounter Orders Appointment Requests Count Last Ordered Date Fi rst Ordered Date ONCBCN LAB APPOINTMENT 1 03/17/2021 documented in this encounter Care Teams Director Of Supply Chain Relationship Specialty Start Date End Date Julio César Briseno MD PCP - General 10/01/16 Eren Cr MD Referring Physician Medical Oncology 11/25/18 Yohana Bowen MD Radiation Oncologist Radiation Oncology 11/25/18 Sabrina Willard NP [address] [place] [address] Nurse Practitioner Medical Oncology 08/17/20 11/26/21 documented as of this encounter
--- OUTSIDE RECORDS SUMMARY | 2024-06-25 22:27 | XMS_ITS | Encounter Summary ---
Author Organization [facility] of [facility] Address [address] [place] [address] Phone Care Team Providers Care Teacher Nursery School Name Role Phone Julio César Briseno MD Primary Care Provider Eren Cr MD Unavailable [phone] Yohana Bowen MD Unavailable Sabrina Willard NP Unavailable Encounter Details Date Type Department Care Team (Late st Contact Info) Description 03/08/2021 Orders Only [facility] Oncology [address] [facility] Advanced Medicine 7th [place] [address] [place] [address] Eren Cr MD [facility] [address] [place] [address] Neuroendocrine carcinoma (CMS/HCC) (HCC) (Primary Dx); Dehydration; CINV (chemotherapy-induced nausea and vomiting) Social [...] on file 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 Gender Identity Not on file Sexual Orientation Straight 02/19/2021 9: 29 AM CDT Occupation Industry Job Start Date Job End Date retired Not on file Not on file Not on file documented as of this encounter Plan of Treatment Not on file documented as of this encounter Results * (ABNORMAL) Comprehensive metabolic panel (03/09/2021 7:20 AM CDT) Sodium 137 135 - 145 mmol/L [facility] Comment:Testing performed by : [facility], [address] [place] [phone] Potassium, pl 4.2 3.3 - 4.9 mmol/L [facility] Comment:Testing performed by : [address] [address] Chloride 105 97 - 110 mmol/L [facility] Comment:Testing performed by : [facility], [address] [place] [phone] CO2 20(L) 22 - 32 mmol/L [facility] Comment:Testing performed by : [facility], [address] [place] [phone] Anion gap 12 2 - 15 mmol/L [facility] Comment:Testing performed by : [address] [address] BUN 16 8 - 25 mg/dL [facility] Comment:Testing performed by : [facility], [address] [place] [phone] Creatinine 1.14(H) 0.60 - 1.10 mg/dL [facility]ER [facility] Comment:Testing performed by : [address] [address] Glucose 227(H) 70 - 199 mg/dL [facility] Comment: Interpretive Data Fasting glucose [...] performed by: [facility], [address] [place] [phone] Calcium 10.0 8.5 - 10.3 mg/dL [facility] Comment:Testing performed by : [facility], [address] [place] [phone] Bilirubin, total 0.3 0.1 - 1.2 mg/dL [facility] Comment:Testing performed by : [address] [address] Protein, pl 6.5 6.5 - 8.5 g/dL [facility] Comment:Testing performed by : [address] [address] Albumin 3.7 3.5 - 5.0 g/dL [facility] Comment:Testing performed by : [facility], [address] [place] [phone] Alk phos 121 40 - 130 Units/L [facility] Comment:Testing performed by : [address] [address] ALT 31 7 - 45 Units/L [facility] Comment:Testing performed by : [address] [address] AST 44 10 - 45 Units/L [facility] Comment:Testing performed by : [facility], [address] [place] [phone] Blood 03/09/2021 7:20 AM CDT 03/09/2021 7:27 AM CDT us Eren Cr MD LAB BLOOD ORDERABLES Final Re sult [facility] Department [place] [address] * (ABNORMAL) CBC with auto differential (03/09/2021 7:20 AM CDT) WBC 2.3(L) 3.8 - 9.8 K/cumm [facility] Comment:Testing performed by : [facility], [address] [place], [place] [phone] Hgb 11.8(L) 12.1 - 15.1 g/dL [facility] Comment:Testing performed by : [facility], [address] [place], [place] [phone] Hct 35.3(L) 36.1 - 44.3 % [facility] Comment:Testing performed by : [facility], [address] [place], [place] [phone] Plt 78(L) 140 - 440 K/cumm [facility] Comment:Testing performed by : [place] [id number] MPV 8.3 6.8 - 10.4 fL [facility] Comment:Testing performed by : [facility], [address] [place], [place] [phone] RBC 4.03 3.90 - 5.00 M/cumm [facility] Comment:Testing performed by : [place] [id number] MCV 87.5 80.0 - 97.6 fL [facility] Comment:Testing performed by : [address] [address] MCH 29.3 26.7 - 33.7 pg [facility] Comment:Testing performed by : [facility], [address] [place], [place] [phone] MCHC 33.4 32.7 - 35.5 g/dL [facility] Comment:Testing performed by : [place] [id number] RDW CV 13.1 11.8 - 14.6 % [facility] Comment:Testing performed by : [address] [address] NRBC abs 0.00 0.00 - 0.01 K/cumm [facility] Comment:Testing performed by : [facility], [facility] [place] [address] Blood 03/09/2021 7:20 AM CDT 03/09/2021 7:27 AM CDT Eren Cr MD LAB BLOOD ORDERABLES Final Re sult JASON [facility] Department [place] [address] documented in this encounter Visit Diagnoses Diagnosis Neuroendocrine carcinoma (HCC)- Primary Other malignant neoplasm of unspecified site Dehydration CINV (chemotherapy-induced nausea and vomiting) documented in this encounter Orders Appointment Requests Count Last Ordered Date Fi rst Ordered Date ONCBCN INFUSION APPT REQUEST 1 03/09/2021 ONCBCN LAB APPOINTMENT 1 03/09/2021 documented in this encounter Care Teams Teacher Nursery School Relationship Specialty Start Date End Date Julio César Briseno MD PCP - General 10/01/16 Eren Cr MD Referring Physician Medical Oncology 11/25/18 Yohana Bowen MD Radiation Oncologist Radiation Oncology 11/25/18 Sabrina Willard NP [address] [place] [address] Nurse Practitioner Medical Oncology 08/17/20 11/26/21 documented as of this encounter
--- OUTSIDE RECORDS SUMMARY | 2024-06-25 22:27 | XMS_ITS | Encounter Summary ---
Author Organization [facility] Address [address] [place] [address] Phone Care Team Providers Care Hris Administrator Name Role Phone Julio César Briseno MD Primary Care Provider Eren Cr MD Unavailable [phone] Yohana Bowen MD Unavailable Sabrina Willard NP Unavailable [phone] Encounter Details Date Type Department Care Team (Late st Contact Info) Description 03/23/2021 4:00 PM CDT Infusion [facility] Oncology [address] [facility] Advanced Medicine 7th [place] [address] Social History Tobacco Use Types Packs/Day Years [...] file 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 Gender Identity Not on file Sexual Orientation Straight 02/19/2021 9: 29 AM CDT Occupation Industry Job Start Date Job End Date retired Not on file Not on file Not on file documented as of this encounter Last Filed Vital Signs Vital Sign Reading Time Taken Comments Blood Pressure 150/78 03/23/2021 3:46 PM CDT Pulse 83 03/23/2021 3:46 PM CDT Temperature 36.7 ??C (98.1 ??F) 03/23/2021 3:46 PM CD T Respiratory Rate 19 03/23/2021 3:46 PM CDT Oxygen Saturation 96% 03/23/2021 3:46 PM CDT Inhaled Oxygen Concentration - - Weight - - Height - - Body Mass Index - - documented in this encounter Nursing Notes * Joelle Sabillon RN - 03/23/2021 4:00 PM CDT Patient presented for fluids/IV start. CT/MRI unable to place PIV so patient scheduled for IVF. 22Gangiocath placed in left forearm x1 attempt. Team said okay for patient to not receive fluids and go for scans. Patient discharged via wheelchair with . documented in this encounter Plan of Treatment Not on file documented as of this encounter Visit Diagnoses Not on filedocumented in this encounter Care Teams Hris Administrator Relationship Specialty Start Date End Date Julio César Briseno MD PCP - General 10/01/16 Eren Cr MD Referring Physician Medical Oncology 11/25/18 Yohana Bowen MD Radiation Oncologist Radiation Oncology 11/25/18 Sabrina Willard NP [address] [place] [address] Nurse Practitioner Medical Oncology 08/17/20 11/26/21 documented as of this encounter
--- OUTSIDE RECORDS SUMMARY | 2024-06-25 22:27 | XMS_ITS | Encounter Summary ---
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 She stated that she is having a lot of congestion and drainage and cough but no SOB. I discussed thatshe should have a COVID test or respiratory panel and also to hold her afinitor. She knows that if she is positive, she can call us to arrange for a monoclonal ab infusion. documented in this encounter Plan of Treatment Not on file documented as of this encounter Visit Diagnoses Not on filedocumented in this encounter Care Teams Bakery Technician Relationship Specialty Start Date End Date Julio César Briseno MD PCP - General 10/01/16 Eren Cr MD Referring Physician Medical Oncology 11/25/18 Yohana Bowen MD Radiation Oncologist Radiation Oncology 11/25/18 Sabrina Willard NP [address] [place] [address] Nurse Practitioner Medical Oncology 08/17/20 11/26/21 documented as of this encounter
--- OUTSIDE RECORDS SUMMARY | 2024-06-25 22:27 | XMS_ITS | Encounter Summary ---
Author Organization [facility] Address [address] [place] [address] Phone Care Team Providers Care Surgical Attendant Name Role Phone Julio César Briseno MD Primary Care Provider [phone] Eren Cr MD Unavailable [phone] Yohana Bowen MD Unavailable Sabrina Willard NP Unavailable [phone] Reason for Visit * Reason Comments Injections * Episode Based Medications (Routine) - Authorized Specialty Diagnoses / Procedures Referred By Contac t Referred To Contact Oncology Diagnoses Neuroendocrine carcinoma (HCC) Malignant neoplasm metastatic to liver (HCC) Procedures SD OCTREOTIDE INJECTION, DEPOT Octreotide 28 Day Cycles - Carcinoid Eren Cr MD [address] [facility] [address] [place] [address] Phone: tel: fax: [address] [address] Phone: tel: fax: Referral ID Status Reason Start Date Expiration Date V isits Requested Visits Authorized [id number] Authorized 11/28/2017 02/05/2025 1 150 Encounter Details Date Type Department Care Team (Late st Contact Info) Description 03/27/2021 3:30 PM CDT Infusion [facility] Oncology [address] [facility] 7th [place] [address] Neuroendocrine carcinoma (CMS/HCC) (HCC) (Primary Dx); Malignant [...] on file 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 female who presents for the following injection: octreotide/denosumab. Nursing Assessment Nursing Assessment Appetite:: Fair Diarrhea:: No Constipation:: No Last BM Date: 03/27/21 Existing Patients: Any falls since your last visit? : No Fatigue:: Occassional Mouth Sores:: No Nausea/Vomiting:: No Pain:: No Peripheral Neuropathy: : No Pt states has potential to be ? : No Shortness of Breath?: Yes Respiratory Effort Characteristics: Dyspnea exertion Skin Condition/Temp: Warm, Dry Oral Mucosa Grade: Normal (0) Abdomen: Soft Swelling:: No BP: 146/63 Temp: 36.3 ??C (97.3 ??F) Temp src: Temporal Pulse: 89 Resp: 16 SpO2: 96 % Weight: 80.3 kg (177 lb) Patient: met treatment parameters La Chung [...] 120 mg 120 mg, subcutaneous, Once, On Sat03/27/21 at 1630, For 1 dose, Calcium level should be greater than 8 mg/dl Administer injection in upper arm, abdomen or upper thigh Refrigerate. Allow to stand 15 to 30 mins prior to useIndications:Bone metastasis,Neuro-endocrine carcinoma (HCC) Given 03/27/2021 4:39 PM CDT 120 mg Right Lower Abdomen octreotide LAR (SandoSTATIN LAR) extended release intramuscular injection 30 mg 30 mg, intramuscular, Once, On Sat03/27/21 at 1645, For 1 dose, Refrigerate. For IM intragluteal administration only- alternate gluteal sites. Shake.Indications:Malignan t neoplasm metastatic to liver (HCC),Neuroendocrine carcinoma (HCC) Given 03/27/2021 4:39 PM CDT 30 mg Right Dorsogluteal/Butto ck documented in this encounter Orders Nursing Count Last Ordered Date First Orde red Date ONCBCN NURSING COMMUNICATION [id number] 1 03/27 ONCBCN NURSING COMMUNICATION [id number] 1 0 03/27/2021 PHYSICIAN COMMUNICATION ORDER 1 03/27/2021 Appointment Requests Count Last Ordered Date Fi rst Ordered Date ONCBCN INJECTION APPOINTMENT REQUEST 1 03/09 documented in this encounter Care Teams Surgical Attendant Relationship Specialty Start Date End Date Julio César Briseno MD PCP - General 10/01/16 Eren Cr MD Referring Physician Medical Oncology 11/25/18 Yohana Bowen MD Radiation Oncologist Radiation Oncology 11/25/18 Sabrina Willard NP [address] [place] [address] Nurse Practitioner Medical Oncology 08/17/20 11/26/21 documented as of this encounter
--- OUTSIDE RECORDS SUMMARY | 2024-06-25 22:27 | XMS_ITS | Encounter Summary ---
Author Organization [facility] Address [address] [place] [address] Phone Care Team Providers Care Water Pumping Station Engineer Name Role Phone Julio César Briseno MD Primary Care Provider Eren Cr MD Unavailable [phone] Yohana Bowen MD Unavailable Sabrina Willard NP Unavailable [phone] Reason for Visit * Reason Onset Date Comments follow up nausea/vomiting 03/09/2021 Encounter Details Date Type Department Care Team (Late st Contact Info) Description 03/09/2021 Telephone [facility] Oncology [address] [facility] Advanced Medicine 7th [place] [address] [place] [address] Eren Cr MD [address] [facility] [address] [place] [address] follow up nausea/vomiting Social History Tobacco Use Types Packs/Day Years [...] file 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 Patient reports feeling much improved. No further nausea/vomiting last night or today. Patient took Afinitor last night about 8:30 pm with full glass of water and ate a yogurt and had not problems. Previously she did not take with full glass of water and took when going to bed. Lab results reviewed with Dr. Cr and recommends to take Afinitor every other day due to low platelets. Discussed lab results with patient and let her know above as well. Patient will follow up with us in two weeks and have repeat labs. She knows to contact the office for any issues in the interim. documented in this encounter Plan of Treatment Not on file documented as of this encounter Visit Diagnoses Not on filedocumented in this encounter Care Teams Water Pumping Station Engineer Relationship Specialty Start Date End Date Julio César Briseno MD PCP - General 10/01/16 Eren Cr MD Referring Physician Medical Oncology 11/25/18 Yohana Bowen MD Radiation Oncologist Radiation Oncology 11/25/18 Sabrina Willard NP [address] [facility] [address] [place] [address] Nurse Practitioner Medical Oncology 08/17/20 11/26/21 documented as of this encounter
--- OUTSIDE RECORDS SUMMARY | 2024-06-25 22:27 | XMS_ITS | Encounter Summary ---
Author Organization [facility] Address [address] [place] [address] Phone Care Team Providers Care Lab Aide Name Role Phone Julio César Briseno MD Primary Care Provider Eren Cr MD Unavailable [phone] Yohana Bowen MD Unavailable Sabrina Willard NP Unavailable [phone] Encounter Details Date Type Department Care Team (Late st Contact Info) Description 02/21/2021 Orders Only [facility] Oncology [address] [facility] Advanced Medicine 7th [place] [address] [place] [address] Eren Cr MD [address] [facility] [address] [place] [address] Neuro-endocrine carcinoma (CMS/HCC) (HCC) (Primary Dx) Social [...] file 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
--- OUTSIDE RECORDS SUMMARY | 2024-06-25 22:27 | XMS_ITS | Encounter Summary ---
Author Organization [facility] Address [address] [place] [address] Phone Care Team Providers Care Entry Level Web Developer Name Role Phone Julio César Briseno MD Primary Care Provider [phone] Eren Cr MD Unavailable Yohana Bowen MD Unavailable Sabrina Willard NP Unavailable [phone] Encounter Details Date Type Department Care Team (Late st Contact Info) Description 03/23/2021 Orders Only [facility] Oncology [address] 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 Gender Identity Not on file Sexual Orientation Straight 02/19/2021 9: 29 AM CDT Occupation Industry Job Start Date Job End Date retired Not on file Not on file Not on file documented as of this encounter Plan of Treatment Not on file documented as of this encounter Visit Diagnoses Not on filedocumented in this encounter Care Teams Entry Level Web Developer Relationship Specialty Start Date End Date Julio César Briseno MD PCP - General 10/01/16 Eren Cr MD Referring Physician Medical Oncology 11/25/18 Yohana Bowen MD Radiation Oncologist Radiation Oncology 11/25/18 Sabrina Willard NP [address] [place] [address] Nurse Practitioner Medical Oncology 08/17/20 11/26/21 documented as of this encounter
--- OUTSIDE RECORDS SUMMARY | 2024-06-25 22:27 | XMS_ITS | Encounter Summary ---
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 This is not oncologic issue at this point. She is to follow with her PCP for all her non- oncologic issues. documented in this encounter Plan of Treatment Not on file documented as of this encounter Visit Diagnoses Not on filedocumented in this encounter Care Teams Coal Or Ore Controller Relationship Specialty Start Date End Date Julio César Briseno MD PCP - General 10/01/16 Eren Cr MD Referring Physician Medical Oncology 11/25/18 Yohana Bowen MD Radiation Oncologist Radiation Oncology 11/25/18 Sabrina Willard NP [address] [place] [address] Nurse Practitioner Medical Oncology 08/17/20 11/26/21 documented as of this encounter
--- OUTSIDE RECORDS SUMMARY | 2024-06-25 22:27 | XMS_ITS | Encounter Summary ---
Author Organization [facility] Address [address] [place] [address] Phone Care Team Providers Care Pressroom Foreman Name Role Phone Julio César Briseno MD Primary Care Provider Eren Cr MD Unavailable [phone] Yohana Bowen MD Unavailable Sabrina Willard NP Unavailable Encounter Details Date Type Department Care Team (Late st Contact Info) Description 02/21/2021 Orders Only [facility] Oncology [address] 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 ? Values obtained with different assay methods or kits may be different and cannot be used interchangeably. ? Test results cannot be interpreted as absolute evidence for the presence or absence of malignant disease. Test Performed by: [address] [address] Coat Joiner: Immanuel Novak M.D. Ph.D.; CLIA# [id number] Blood 02/27/2021 8:11 AM CDT 02/27/2021 8:30 AM CDT us Eren Cr MD LAB BLOOD ORDERABLES Final Re sult JASON BLACK [facility] Department [place] [address] * (ABNORMAL) Comprehensive metabolic panel (02/27/2021 8:11 AM CDT) Sodium 142 135 - 145 mmol/L CERNER [facility]J Comment:Testing performed by : [facility], [address] [place] [phone] Potassium, pl 4.4 3.3 - 4.9 mmol/L CERNER BJ Comment:Testing performed by : [address] [address] Chloride 103 97 - 110 mmol/L CERNER BJ Comment:Testing performed by : [facility], [address] [place] [phone] CO2 30 22 - 32 mmol/L CERNER BJ Comment:Testing performed by : [address] [phone] Anion gap 9 2 - 15 mmol/L CERNER BJ Comment:Testing performed by : [address] [address] BUN 12 8 - 25 mg/dL CERNER BJ Comment:Testing performed by : [facility], [address] [place] [phone] Creatinine 0.95 0.60 - 1.10 mg/dL CERNER BJ Comment:Testing performed by : [address] [address] Glucose 155 70 - 199 mg/dL [facility] Comment: Interpretive Data Fasting glucose [...] was last revised 2017. Testing performed by: [address] [phone] Calcium 11.1(H) 8.5 - 10.3 mg/dL CERNER BJ Comment:Testing performed by : [facility], [address] [place] [phone] Bilirubin, total 0.5 0.1 - 1.2 mg/dL JASON [facility] Comment:Testing performed by : [facility], [address] [place] [phone] Protein, pl 7.2 6.5 - 8.5 g/dL JASON BLACK Comment:Testing performed by : [facility], [address] [place] [phone] Albumin 4.4 3.5 - 5.0 g/dL JASON BLACK Comment:Testing performed by : [facility], [address] [place] [phone] Alk phos 171(H) 40 - 130 Units/L JASON [facility] Comment:Testing performed by : [facility], [address] [place] [phone] ALT 32 7 - 45 Units/L [facility]ON [facility] Comment:Testing performed by : [facility], [address] [place] [phone] AST 42 10 - 45 Units/L [facility]ON [facility] Comment:Testing performed by : [facility], [address] [place] [phone] Blood 02/27/2021 8:11 AM CDT 02/27/2021 8:15 AM CDT us Eren Cr MD LAB BLOOD ORDERABLES Final Re sult [facility] Department [place] [address] * (ABNORMAL) CBC with auto differential (02/27/2021 8:11 AM CDT) WBC 3.4(L) 3.8 - 9.8 K/cumm JASON BLACK Comment:Testing performed by : [facility], [address] [place] [phone] Hgb 13.0 12.1 - 15.1 g/dL JASON BLACK Comment:Testing performed by : [facility], [address] [place] [phone] Hct 37.7 36.1 - 44.3 % CERMINNIE BJ Comment:Testing performed by : [facility], [address] [place] [phone] Plt 121(L) 140 - 440 K/cumm JASON BLACK Comment:Testing performed by : [facility], [address] [place], [place] [phone] MPV 8.5 6.8 - 10.4 fL JASON [facility] Comment:Testing performed by : [facility], [address] [place], [place] [phone] RBC 4.30 3.90 - 5.00 M/cumm JASON [facility] Comment:Testing performed by : [place] [phone] MCV 87.6 80.0 - 97.6 fL JASON [facility] Comment:Testing performed by : [facility], [address] [place] [phone] MCH 30.2 26.7 - 33.7 pg [facility]ON [facility] Comment:Testing performed by : [facility], [address] [place] [phone] MCHC 34.5 32.7 - 35.5 g/dL [facility]ON [facility] Comment:Testing performed by : [facility], [address] [place], [place] [phone] RDW CV 13.2 11.8 - 14.6 % [facility]ON [facility] Comment:Testing performed by : [address] [phone] NRBC abs 0.00 0.00 - 0.01 K/cumm [facility] Comment:Testing performed by : [facility], [address] [place] [phone] Blood 02/27/2021 8:11 AM CDT 02/27/2021 8:15 AM CDT us Eren Cr MD LAB BLOOD ORDERABLES Final Re sult [facility] Department [place] [address] * Vitamin D 25 hydroxy (02/27/2021 8:11 AM CDT) Pathologist [facility] Vitamin D 25-OH 33 30 - 80 ng/mL [facility] Blood 02/27/2021 8:11 AM CDT 02/27/2021 8:34 AM CDT us Eren Cr MD LAB BLOOD ORDERABLES Final Re sult Performing Organization Address [facility] Co de Phone Number [facility] Department [place] [address] * Phosphorus (02/27/2021 8:11 AM CDT) [facility] Phosphorus, pl 2.7 2.3 - 4.5 mg/dL [facility] Comment:Testing performed by : [facility], [address] [place] [phone] Blood 02/27/2021 8:11 AM CDT 02/27/2021 8:15 AM CDT us Eren Cr MD LAB BLOOD ORDERABLES Final Re sult Performing Organization Address [facility] de Phone Number [facility] Department [place] [address] * (ABNORMAL) Lipid panel (02/27/2021 8:11 AM CDT) [facility] Cholesterol 154 30 - 199 mg/dL [facility] Comment: Interpretive Data Ages < or [...] Data was last revised on 2018. Triglycerides 255(H) <=149 mg/dL [facility] Comment: Interpretive Data Ages < or [...] on 2018. HDL 65 >=40 mg/dL [facility] Comment: Interpretive Data Ages < or [...] was last revised on 2018. LDL, calculated 38 <=129 mg/dL [facility] Comment: Interpretive Data Ages < or [...] on 2018. Non-HDL Cholesterol 89 mg/dL JASON BLACK Comment: Interpretive Data Ages [...] 2018. 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
--- OUTSIDE RECORDS SUMMARY | 2024-06-25 22:27 | XMS_ITS | Encounter Summary ---
Author Organization [facility] Address [address] [place] [address] Phone Care Team Providers Care Plumbing Foreman Name Role Phone Julio César Briseno MD Primary Care Provider [phone] Eren Cr MD Unavailable [phone] Yohana Bowen MD Unavailable Sabrina Willard NP Unavailable [phone] Reason for Visit * Episode Based Medications (Routine) - Authorized Specialty Diagnoses / Procedures Referred By Contac t Referred To Contact Oncology Diagnoses 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) Procedures [place] DENOSUMAB INJECTION DENOSUMAB (XGEVA) Eren Cr MD [address] [facility] [address] [place] [address] Phone: tel: fax: [facility] [address] [facility] Advanced Medicine 7th [place] [address] Phone: tel: Referral ID Status Reason Start Date Expiration Date V isits Requested Visits Authorized [id number] Authorized 03/02/2019 10/06/2024 1 60 Encounter Details Date Type Department Care Team (Late st Contact Info) Description 03/17/2021 8:30 AM CDT Infusion [facility] Oncology [address] [facility] 7th [place] [address] Neuro-endocrine carcinoma (CMS/HCC) (HCC) (Primary Dx); Bone [...] file Legal Sex 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[employer] Gender Identity Not on file Sexual Orientation Straight 02/19/2021 9: 29 AM CDT Occupation Industry Job Start Date Job End Date retired Not on file Not on file Not on file documented as of this encounter Last Filed Vital Signs Vital Sign Reading Time Taken Comments Blood Pressure 138/78 03/17/2021 8:15 AM CDT Pulse 65 03/17/2021 8:15 AM CDT Temperature 37 ??C (98.6 ??F) 03/17/2021 8:15 AM CDT Respiratory Rate 19 03/17/2021 8:15 AM CDT Oxygen Saturation 100% 03/17/2021 8:15 AM CDT Inhaled Oxygen Concentration - - Weight 80.9 kg (178 lb 6.4 oz) 03/17/2021 8:15 A M CDT Height - - Body Mass Index 31.6 02/16/2021 2:43 PM CDT documented in this encounter Nursing Notes * Anne-Marie Winn RN - 03/17/2021 8:30 AM CDT Oncology Nursing Note [facility] ONCOLOGY La Chung is a 70 y.o. female who presents for Hydration Pre-treatment Nursing Assessment Nursing Assessment Appetite:: Fair (trying to drink more/ some days better than others) Diarrhea:: Yes (ostomy/feels output is normal) Constipation:: No Last BM Date: (ostomy) Existing Patients: Any falls since your last visit? : No Fatigue:: Occassional Nausea/Vomiting:: No (resolved) Pain:: No Peripheral Neuropathy: : No Pt states has potential to be ? : N/A Shortness of Breath?: No Lungs auscultated PRN:: No Pt is on oxygen? : No Respiratory Effort Characteristics: Dyspnea exertion Skin Condition/Temp: Dry, Warm Oral Mucosa Grade: Normal (0) Abdomen: Soft Swelling:: No Additional Notes: post nasal drip/denies fevers/loss of taste or smell BP: 138/78 Temp: 37 ??C (98.6 ??F) Temp src: Temporal Pulse: 65 Resp: 19 SpO2: 100 % Weight: 80.9 kg (178 lb 6.4 oz) Pain Score: 0 - No pain Treatment Patient: met treatment parameters Pre blood return: Brisk La M Vivod Tolerated 1L NS over 2 hours without issues Additional Notes: Post blood return: Brisk IV access post infusion: NS Patient Education Treatment Education: Information/teaching given to patient including Symptom management. Patient aware to keep well hydrated and continue her Liquid IV supplement as tolerated. Report any dizziness or increased output from her Ostomy. Response: Verbalizes understanding Discharge Plan Discharge instructions given to patient. Future appointments given and reviewed with treatment plan. Discharge Mode: Wheelchair Accompanied by: Self Discharged To: Home documented [...] mL/hr, Administer over 2 Hours, Once, On Sat03/17/21 at 0915, For 1 doseIndications:Bone metastasis,Neuro-endocrine carcinoma (HCC) New Bag 03/17/2021 8:44 AM CDT 1,000 mL 500 mL/hr documented in this encounter Orders Medications Ordered That Brett ht Not Have Been Administered Count Last Ordered Date First Ordered Date sodium chloride 0.9% bolus 1,000 mL 1 03/17 Nursing Count Last Ordered Date First Orde red Date ONCBCN NURSING COMMUNICATION [id number] 1 0 03/17/2021 PHYSICIAN COMMUNICATION ORDER 1 03/17/2021 Appointment Requests Count Last Ordered Date Fi rst Ordered Date ONCBCN INFUSION APPT REQUEST 1 03/17/2021 documented in this encounter Care Teams Plumbing Foreman Relationship Specialty Start Date End Date Julio César Briseno MD PCP - General 10/01/16 Eren Cr MD Referring Physician Medical Oncology 11/25/18 Yohana Bowen MD Radiation Oncologist Radiation Oncology 11/25/18 Sabrina Willard NP [address] [place] [address] Nurse Practitioner Medical Oncology 08/17/20 11/26/21 documented as of this encounter
--- OUTSIDE RECORDS SUMMARY | 2024-06-25 22:27 | XMS_ITS | Encounter Summary ---
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) Procedures CT chest with contrast Eren Cr MD [facility] [address] [place] [address] Phone: tel: fax: [address] [address] Referral ID Status Reason Start Date Expiration Date Visits Re quested Visits Authorized [id number] Closed 02/27/2021 03/29/2022 1 1 * MRI/CAT/PET Scan (Routine) - Closed Specialty Diagnoses / Procedures Referred By Contac t Referred To Contact Radiology Diagnoses Neuroendocrine carcinoma (HCC) 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) Procedures MRI Abdomen Pelvis W WO Contrast Eren Cr MD [address] [facility] [address] [facility] [place] [address] Phone: tel: fax: [address] [phone] Referral ID Status Reason Start Date Expiration Date Visits Re quested Visits Authorized [id number] Closed 02/27/2021 03/29/2022 1 1 Reason for Visit * Episode Based Medications (Routine) - Authorized Specialty Diagnoses / Procedures Referred By Contellen t Referred To Contact Oncology Diagnoses Neuroendocrine carcinoma (HCC) 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 [address] [facility] [place] [address] Phone: tel: fax: [address] [phone] Phone: tel: fax: Referral ID Status Reason Start Date Expiration Date V isits Requested Visits Authorized [id number] Authorized 11/28/2017 02/05/2025 1 150 Encounter Details Date Type Department Care Team (Late st Contact Info) Description 02/27/2021 9:00 AM CDT Office Visit [facility] Oncology [address] [facility] 7th [place] [address] [place] [address] Eren Cr MD [address] [facility] [address] [facility] [place] [address] Neuroendocrine carcinoma (CMS/HCC) (HCC) (Primary Dx); Malignant [...] on file Legal Sex Female 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 Gender Identity Not on file Sexual Orientation Straight 02/19/2021 9: 29 AM CDT Occupation Industry Job Start Date Job End Date retired Not on file Not on file Not on file documented as of this encounter Last Filed Vital Signs Vital Sign Reading Time Taken Comments Blood Pressure 107/58 02/27/2021 8:18 AM CDT Pulse 86 02/27/2021 8:18 AM CDT Temperature 36.3 ??C (97.3 ??F) 02/27/2021 8:18 AM CD T Respiratory Rate 16 02/27/2021 8:18 AM CDT Oxygen Saturation 97% 02/27/2021 8:18 AM CDT Inhaled Oxygen Concentration - - Weight 80.7 kg (178 lb) 02/27/2021 8:18 AM CDT Height - - Body Mass Index 31.53 02/16/2021 2:43 PM CDT documented in this encounter Progress Notes * Eren Cr Jr., MD - 02/27/2021 9:00 AM CDT La Chung : 1950 DATE OF VISIT: 02/27/21 Cancer Staging Malignant neoplasm metastatic to liver [...] time, she also underwent right colectomy in [facility] OR by Dr. Greyson Reeves. Biopsy [...] - Carcinoid Current day: Day 1, Cycle 37 (Planned for 02/27/2021) Following planned day: Day 1, Cycle 38 (Planned for 03/27/2021) Oncology Supportive Care: DENOSUMAB (XGEVA) INJECTION & HYDRATION THERAPY PLAN Current treatment: Treatment 11 (Started on 02/20/2021; Originally planned for 02/20/2021) Following planned treatment: Treatment 12 (Planned for 02/27/2021) INTERVAL HISTORY Ms. La Chugn is a 70 y.o. 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 Her last PET dotatate showed progression with rising chromogranin A levels. She started on Everolimus 01/19/2021. Since starting everolimus, she had to hold for a few days due to diarrhea but resumed when improved. She started with an every other day everolimus and in the past 2 weeks was able to tolerate daily dosing. She has tirednessa dn lost 3 pounds and noted watery output in her ostomy. She h as been taking immodium and lomotil. She was recently seen by Surgical Oncology for a breast discharge with no mammographic or sonographic findings To explain her symptom. She was also followed by Orthopedic and noted that she is stablefrom her prior radial head fracture. He again received hydration last week at the [facility] Overall, she is feeling well. She states appetite and energy are good She denies any mouth sores, skin rashes, fever, chills, night sweats, shortness of breath, cough, chest pain, nausea, vomiting, constipation, neuropathy, edema, urinary symptoms, or pain. PAST [...] ??? JOINT REPLACEMENT Left 2014 ? ? WY REMOVAL OF TONSILS,<12 Y/O Tonsillectomy - (Added by [facility]) ??? WY TOTAL ABDOM HYSTERECTOMY Hysterectomy - (Added by [facility]) ALLERGIES: Allergies Allergen Reactions ??? Morphine Blisters ??? Ezetimibe-Simvastatin Muscle pain and Unknown Muscle weakness ??? Ramipril Cough CURRENT MEDICATIONS: Current Outpatient Medications: ??? ascorbic acid, vitamin C, 500 mg capsule, Take 1 tablet by mouth car wiper before breakfast, Disp: , Rfl: ??? cholecalciferol (VITAMIN D-3) 2,000 unit capsule, Take 1 capsule (2,000 Units total) by mouth daily (Patient taking differently: Take 2,000 Units by mouth daily ), Disp: 30 capsule, Rfl: 2 ??? clotrimazole-betamethasone (LOTRISONE) cream, clotrimazole-betamethasone 1 %-0.05 % topical cream APPLY EXTERNALLY TO ABDOMEN TWICE DAILY NEEDED, Disp: , Rfl: ??? coenzyme V32-aovursu E (CO Q-10, WITH VIT E,) 100-5 mg-unit capsule, Take by mouth car wiper before breakfast , Disp: , Rfl: ??? denosumab (XGEVA) 120 mg/1.7 mL (70 mg/mL) injection, Inject under the skin every 30 (thirty) days, Disp: , Rfl: ??? diphenoxylate-atropine (LOMOTIL) 2.5-0.025 mg per tablet, Take 1 tablet by mouth 4 (four) timesa day as needed for diarrhea, Disp: 90 tablet, Rfl: 0 ??? DULoxetine DR (CYMBALTA) 30 mg capsule, Take 1 capsule (30 mg total) by mouth daily (Patient taking differently: Take 30 mg by mouth car wiper before breakfast ), Disp: 30 capsule, Rfl: 2 ??? everolimus (AFINITOR) 10 mg tablet, 10 mg Pt states she is taking every other day. 02/13/21 , Disp: , Rfl: ??? fluticasone propionate (FLONASE) 50 mcg/actuation nasal spray, fluticasone propionate 50 mcg/actuation nasal spray,suspension, Disp: , Rfl: ??? gabapentin (NEURONTIN) 600 mg tablet, Take 1 tablet (600 mg total) by mouth 3 (three) times a day, Disp: 90 tablet, Rfl: 11 ??? HYDROcodone-acetaminophen (NORCO) 5-325 mg per tablet, , Disp: , Rfl: ??? loperamide HCl (IMODIUM A-D ORAL), , Disp: , Rfl: ??? montelukast (SINGULAIR) 10 mg tablet, Take 10 mg by mouth as needed , Disp: , Rfl: ??? octreotide (SandoSTATIN) 50 mcg/mL (1 mL) syringe, every 30 (thirty) days, Disp: , Rfl: ??? olmesartan-hydrochlorothiazide (BENICAR HCT) 20-12.5 mg per tablet, Take 0.5 tablets by mouth car wiper before breakfast decrease dosage to 0.5 tablet [...] manage., Disp: 20 each, Rfl: 6 ??? oxyCODONE (ROXICODONE) 5 mg immediate release tablet, Take 1 tablet (5 mg total) by mouth every4 (four) hours as needed for pain, Disp: 8 tablet, Rfl: 0 ??? simvastatin (ZOCOR) 20 [...] meals, Disp: 270 packet, Rfl: 3 ??? oxybutynin (DITROPAN) 5 mg tablet, Take 1 tablet (5 mg total) by mouth 2 (two) times a day for 14 days, Disp: 28 tablet, Rfl: 0 No current facility-administered medications for this visit. Facility-Administered Medications Ordered in Other Visits: ??? L-arginine 1.25%/L-lysine 1.25% infusion 1,000 mL, 1,000 mL, intravenous, Continuous, Meagan Amaya MD REVIEW OF SYSTEMS: All other systems negative. PHYSICAL EXAMINATION: Performance Status: ECOG 1. Vital signs: Vitals BP 107/58 (BP Location: Left arm) Pulse 86 Temp 36.3 ??C (97.3 ??F) (Temporal) Resp 16 Wt 80.7 kg (178 lb) SpO2 97% BMI 31.53 kg/m?? General: She is a 70 y.o. [...] bowel sounds. No organomegaly or masses palpated. Ostomy in place. Extremities: No clubbing, cyanosis, or edema. Skin: No rashes or lesions. No nail changes. Neurological: No focal neurological deficits. LABORATORY: Recent Results (from the past 24 hour(s)) CBC with auto differential Collection Time: 02/27/21 8:11 AM Result Value Ref Range WBC 3.4 (L) 3.8 - 9.8 K/cumm Hgb 13.0 12.1 - 15.1 g/dL Hct 37.7 36.1 - 44.3 % Plt 121 (L) 140 - 440 K/cumm MPV 8.5 6.8 - 10.4 fL RBC 4.30 3.90 - 5.00 M/cumm MCV 87.6 80.0 - 97.6 fL MCH 30.2 26.7 - 33.7 pg MCHC 34.5 32.7 - 35.5 g/dL RDW CV 13.2 11.8 - 14.6 % NRBC abs 0.00 0.00 - 0.01 K/cumm Differential, auto Collection Time: 02/27/21 8:11 AM Result Value Ref Range Neutrophil abs 2.3 1.8 - 6.6 K/cumm Lymphocyte abs 0.4 (L) 1.2 - 3.3 K/cumm Monocyte abs 0.6 0.2 - 1.2 K/cumm Eosinophil abs 0.2 0.0 - 0.5 K/cumm Basophil abs 0.0 0.0 - 0.2 K/cumm Neutrophil pct 66.3 % Lymphocyte pct 10.7 % Monocyte pct 17.4 % Eosinophil pct 4.4 % Basophil pct 1.2 % Hematology Lab History Some values may be hidden. Unless noted otherwise, only the newest values recorded on each date aredisplayed. Labs - Hematology Latest Ref Range 01/30/21 02/13/21 02/20/21 02/27/21 WBC 3.8 - 9.8 K/cumm 3.1 (A) 4.0 2.5 (A) 3.4 (A) Total Hb, POC 12.1 - 15.1 g/dL 13.7 12.2 11.6 (A) 13.0 Hct 36.1 - 44.3 % 40.0 34.7 (A) 33.9 (A) 37.7 Plt 140 - 440 K/cumm 92 (A) 121 (A) 100 (A) 121 (A) Neutrophil abs 1.8 - 6.6 K/cumm 2.0 2.7 1.6 (A) 2.3 Lymphocytes, abs 1.2 - 3.3 K/cumm 0.5 (A) 0.4 (A) 0.2 (A) 0.4 (A) (A) Abnormal value Comments are available for some flowsheets but are not being displayed. Chem/LFT Lab History Some values may be hidden. Unless noted otherwise, only the newest values recorded on each date aredisplayed. Labs-Chem/LFT Latest Ref Range 01/30/21 02/06/21 02/13/21 02/20/21 Sodium 135 - 145 mmol/L 136 138 139 141 Creatinine 0.60 - 1.10 mg/dL 1.19 (A) 0.83 0.85 0.99 Bilirubin, total 0.1 - 1.2 mg/dL 0.3 0.4 0.4 0.3 AST 10 - 45 Units/L 35 35 36 46 (A) ALT 7 - 45 Units/L 28 31 28 42 CrCl- Actual Body Weight (Cockcroft-Gault) 55.6 79.7 78.2 67.1 (A) Abnormal value Comments are available for some flowsheets but are not being displayed. Tumor Marker History Some values may be hidden. Unless noted otherwise, only the newest values recorded on each date aredisplayed. Tumor Markers Latest Ref Range 11/07/20 12/06/20 01/02/2101/30/21 Chromogranin A <93 ng/mL 628 (A) 789 (A) 779 (A) 1181 (A) (A) Abnormal value Comments are available for some flowsheets but are not being displayed. IMAGES XR Elbow Right 2 Views Narrative: EXAMINATION: XR ELBOW RIGHT 2 VIEWS HISTORY: Radial head fracture FINDINGS: 2 images of the right elbow are submitted for evaluation as compared to prior examination dated 01/04/2021. There is a persistent, small joint effusion. There is a healing, minimally displaced, intra-articular radial head and neck fracture with a 1 mm impaction of the radial head. There is a comminuted nondisplaced coronoid fracture. There is heterotopic ossification in the lateral ulnar collateral ligament suggesting ligamentous injury. The alignment is normal. The remaining joint spaces are normal. There is unchanged mild olecranon bursitis. Impression: 1. Healing, intra-articular right radial head fracture with minimal articular incongruity. 2. Unchanged, comminuted, nondisplaced right coronoid process tip fracture. 3. Evolving heterotopic ossification in the lateral collateral ligament related to sprain. Dictated by: Juan Morrell MD The radiology attending physician has personally reviewed this study, and had reviewed and/or edited this written report and agrees with it. Electronically signed by: Bang Walker M.D. 12/27/2020 PET dotatate IMPRESSION: 1. Interval progression of metastatic neuroendocrine tumor with at least three new hepatic lesions, one new retroperitoneal nodule and new sites of osseous disease, compatible with overall disease progression. ?? 2. Stable pulmonary nodules and areas of tracer uptake. ?? Dictated by: Christophe Retana M.D. IMPRESSION AND PLAN: Ms. La Chung is a 70 y.o. Non- female with metastatic neuroendocrine tumor who presents for routine oncologic care to continue with octreotide and everolimus. Overall, she is feeling well, is clinically stable, is tolerating treatment, and her labs are stable. Therefore, we will continue on at this time with no dose modifications. We will obtain scans in 2months. 2. Diarrhea- she is to increase her fluids. 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 But also since she has an ostomy, her description of diarrhea may also be subjective. We reviewed food intake also. As such we will plan on having La Chung return in 2 months with scans All of her questions were answered. She understands and was in agreement with the plan of care. She knows to call the officein the interim with any symptoms, questions, or concerns. documented in this encounter Plan of Treatment Not on file documented as of this encounter Results * (ABNORMAL) Chromogranin A (03/27/2021 2:25 PM CDT) Chromogranin A 980(H) <93 ng/mL [facility] Comment: Impaired renal or hepatic function or treatment with proton pump inhibitors may result in artifactual elevations of Chromogranin A. ADDITIONAL INFORMATION This test was developed and its performance characteristics determined by [facility] in a manner consistent with CLIA requirements. This test has not been cleared or approved by the U.S. Food and Drug Administration. The testing method is a homogeneous time-resolved immunofluorescent assay manufactured by [employer] and performed on the Appe[employer] Kryptor Compact Plus. ? Values obtained with different assay methods or kits may be different and cannot be used interchangeably. ? Test results cannot be interpreted as absolute evidence for the presence or absence of malignant disease. Test Performed by: [address] [address] Dehydrogenation Operator Head: Immaunel Novak M.D. Ph.D.; CLIA# [id number] Blood 03/27/2021 2:25 PM CDT 03/27/2021 4:10 PM CDT us Eren Cr MD LAB BLOOD ORDERABLES Final Re sult J[facility]ON [facility] Department [place] [address] * (ABNORMAL) Comprehensive metabolic panel (03/27/2021 2:25 PM CDT) Sodium 140 135 - 145 mmol/L [facility] Comment:Testing performed by : [facility], [address] [place] [phone] Potassium, pl 3.6 3.3 - 4.9 mmol/L [facility] Comment:Testing performed by : [address] [phone] Chloride 102 97 - 110 mmol/L [facility] Comment:Testing performed by : [facility], [address] [place] [phone] CO2 27 22 - 32 mmol/L [facility] Comment:Testing performed by : [address] [phone] Anion gap 11 2 - 15 mmol/L [facility] Comment:Testing performed by : [address] [address] BUN 23 8 - 25 mg/dL [facility] Comment:Testing performed by : [facility], [address] [place] [phone] Creatinine 1.00 0.60 - 1.10 mg/dL [facility] Comment:Testing performed by : [address] [phone] Glucose 177 70 - 199 mg/dL [facility] Comment: Interpretive Data Fasting glucose >/= [...] was last revised 2017. Testing performed by: [address] [phone] Calcium 10.9(H) 8.5 - 10.3 mg/dL [facility] Comment:Testing performed by : [facility], [address] [place] [phone] Bilirubin, total 0.4 0.1 - 1.2 mg/dL [facility]ON [facility] Comment:Testing performed by : [facility], [address] [place] [phone] Protein, pl 6.9 6.5 - 8.5 g/dL J[facility]ON BLACK Comment:Testing performed by : [facility], [address] [place] [phone] Albumin 4.1 3.5 - 5.0 g/dL [facility] Comment:Testing performed by : [facility], [address] [place] [phone] Alk phos 131(H) 40 - 130 Units/L [facility] Comment:Testing performed by : [facility], [address] [place] [phone] ALT 25 7 - 45 Units/L [facility] Comment:Testing performed by : [facility], [address] [place] [phone] AST 30 10 - 45 Units/L [facility] Comment:Testing performed by : [facility], [address] [place] [phone] Blood 03/27/2021 2:25 PM CDT 03/27/2021 2:30 PM CDT us Eren Cr MD LAB BLOOD ORDERABLES Final Re sult [facility] Department [place] [address] * (ABNORMAL) CBC with auto differential (03/27/2021 2:25 PM CDT) WBC 6.6 3.8 - 9.8 K/cumm [facility]ON BLACK Comment:Testing performed by : [facility], [address] [place] [phone] Hgb 11.8(L) 12.1 - 15.1 g/dL [facility]ON BLACK Comment:Testing performed by : [facility], [address] [place] [phone] Hct 35.6(L) 36.1 - 44.3 % [facility] Comment:Testing performed by : [facility], [address] [place], [place] [id number] Plt 199 140 - 440 K/cumm J[facility]ON BLACK Comment:Testing performed by : [facility], [address] [place], [place] [id number] MPV 8.4 6.8 - 10.4 fL [facility]ON BLACK Comment:Testing performed by : [facility], [address] [place], [place] [id number] RBC 4.08 3.90 - 5.00 M/cumm J[facility]ON BLACK Comment:Testing performed by : [facility], [address] [place], [place] [id number] MCV 87.3 80.0 - 97.6 fL [facility]ON BLACK Comment:Testing performed by : [facility], [address] [place], [place] [id number] MCH 29.0 26.7 - 33.7 pg [facility] Comment:Testing performed by : [facility], [address] [place], [place] [id number] MCHC 33.2 32.7 - 35.5 g/dL [facility]ON [facility] Comment:Testing performed by : [facility], [address] [place], [place] [id number] RDW CV 14.7(H) 11.8 - 14.6 % [facility]ON [facility] Comment:Testing performed by : [address] [phone] NRBC abs 0.01 0.00 - 0.01 K/cumm [facility] Comment:Testing performed by : [facility], [address] [place] [phone] Blood 03/27/2021 2:25 PM CDT 03/27/2021 2:30 PM CDT us Eren Cr MD LAB BLOOD ORDERABLES Final Re sult AJSON BLACK [facility] Department [place] [address] * Vitamin D 25 hydroxy (03/27/2021 2:25 PM CDT) Vitamin D 25-OH 31 30 - 80 ng/mL [facility] Blood 03/27/2021 2:25 PM CDT 03/27/2021 2:54 PM CDT Eren Cr MD LAB BLOOD ORDERABLES Final Re sult Performing Organization Address [facility] Co de Phone Number [facility] Department [place] [address] * Phosphorus (03/27/2021 2:25 PM CDT) Pathologist [facility] Phosphorus, pl 2.8 2.3 - 4.5 mg/dL [facility] Comment:Testing performed by : [facility], [address] [place] [phone] Blood 03/27/2021 2:25 PM CDT 03/27/2021 2:30 PM CDT Eren Cr MD LAB BLOOD ORDERABLES Final Re sult Performing Organization Address [facility] de Phone Number [facility] Department [place] [address] * CT chest with contrast (03/23/2021 7:01 PM CDT) Anatomical Region Laterality Modality Body N/A Computed Tomogra phy 03/24/2021 8:52 AM CDT Impressions 03/24/2021 1:19 PM CDT 1. ??New peripheral and basilar predominant ground glass opacification, reticulation and peribronchovascular thickening in the lungs is suggestive of new organizing pneumonia which may be treatment related. Diffuse nature of this process precludes adequate evaluation of previously seen pulmonary nodules. ?? 2. No CT evidence of progressive metastatic disease in the chest. Dictated by: Edwin Darnell M.D. The radiology attending physician has personally reviewed this study, and had reviewed and/or edited this written report and agrees with it. Electronically signed by: Jasbir Jacob M.D. Narrative 03/24/2021 1:19 PM CDT EXAMINATION: CT of the chest with intravenous [...] there is new basilar and peripheral predominant ??ground glass opacification, reticulation and peribronchovascular thickening. The diffuse pulmonary process appears to obscure the previously visualized pulmonary nodules. No focal consolidation, new suspicious nodularity, pleural effusion or pneumothorax. In the abdomen, there are grossly stable hypervascular metastatic deposits throughout the liver when compared to 11/11/2020, better evaluated on same date MRI. Remainder of the visualized abdomen is unremarkable. No aggressive osseous lesion. Procedure Note Jasbir Jacob MD - 03/24/2021 EXAMINATION: CT of the chest with intravenous [...] abdomen is unremarkable. No aggressive osseous lesion. IMPRESSION: 1. New peripheral and basilar predominant ground [...] it. Electronically signed by: Jasbir Jacob M.D. us Eren Cr MD IMG CT PROCEDURES Final Resul t * MRI Abdomen Pelvis W WO Contrast [...] by: Loretta English M.D. Eren Cr MD IMG MRI PROCEDURES [...] Date ONCBCN CLINIC APPOINTMENT REQUEST 2 021 02/27/2021 ONCBCN INJECTION APPOINTMENT REQUEST 1 03/09 ONCBCN LAB APPOINTMENT 1 03/27/2021 documented in this encounter Care Teams Machine Operator Helper Relationship Specialty Start Date End Date Julio César Briseno MD PCP - General 10/01/16 Eren Cr MD Referring Physician Medical Oncology 11/25/18 Yohana Bowen MD Radiation Oncologist Radiation Oncology 11/25/18 Sabrina Willard NP [address] [place] [address] Nurse Practitioner Medical Oncology 08/17/20 11/26/21 documented as of this encounter
--- OUTSIDE RECORDS SUMMARY | 2024-06-25 22:27 | XMS_ITS | Encounter Summary ---
Author Organization 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) Procedures GA OCTREOTIDE INJECTION, DEPOT Octreotide 28 Day Cycles - Carcinoid Eren Cr MD [address] [facility] [address] [place] [address] Phone: tel: fax: [facility] [address] [address] Phone: tel: fax: Referral ID Status Reason Start Date Expiration Date V isits Requested Visits Authorized [id number] Authorized 11/28/2017 02/05/2025 1 150 Encounter Details Date Type Department Care Team (Late st Contact Info) Description 03/27/2021 2:00 PM CDT Lab [facility] Oncology [address] [facility] 7th [place] [address] [place] [address] Neuroendocrine carcinoma (CMS/HCC) (HCC); Malignant neoplasm metastatic [...] on file 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 Gender Identity Not on file Sexual Orientation Straight 02/19/2021 9: 29 AM CDT Occupation Industry Job Start Date Job End Date retired Not on file Not on file Not on file documented as of this encounter Plan of Treatment Not on file documented as of this encounter Procedures Procedure Name Priority Date/Time Associated Diagnosis Comments EGFR STAT 03/27/2021 2:25 PM CDT 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) DIFFERENTIAL AUTO Routine 03/27/2021 2:2 5 PM CDT 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) CHROMOGRANIN A Routine 03/27/2021 2:25 PM CDT 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) CBC WITH AUTO DIFFERENTIAL Routine 03/27/2021 2:25 PM CDT 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) VITAMIN D 25 HYDROXY Routine 03/27/2021 2:25 PM CDT 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) PHOSPHORUS Routine 03/27/2021 2:25 PM CDT 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) LIPID PANEL Routine 03/27/2021 2:25 PM CDT 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) COMPREHENSIVE METABOLIC PANEL STAT 03/27/2021 2:25 PM CDT 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) documented in this encounter Results * (ABNORMAL) eGFR (03/27/2021 2:25 PM CDT) [facility] eGFR 56(L) 90 - 130 mL/min/1.7 [address] [facility] Comment: Interpretive Data Reference Interval [...] was last reviewed 2020 Testing performed by: [facility], [address] [place] [phone] Blood 03/27/2021 2:25 PM CDT 03/27/2021 2:30 PM CDT us Eren Cr MD LAB BLOOD ORDERABLES Final Re sult [facility] Department [place] [address] * (ABNORMAL) Differential, auto (03/27/2021 2:25 PM CDT) Neutrophil abs 5.5 1.8 - 6.6 K/cumm CERNER BJ Comment:Testing performed by : [facility], [address] [place] [phone] Lymphocyte abs 0.5(L) 1.2 - 3.3 K/cumm CERNER BJ Comment:Testing performed by : [facility], [address] [place] [phone] Monocyte abs 0.6 0.2 - 1.2 K/cumm CERNER BJ Comment:Testing performed by : [facility], [address] [place] [phone] Eosinophil abs 0.0 0.0 - 0.5 K/cumm CERNER BJ Comment:Testing performed by : [facility], [address] [place] [phone] Basophil abs 0.0 0.0 - 0.2 K/cumm CERNER BJ Comment:Testing performed by : [facility], [address] [place] [phone] Neutrophil pct 82.5 % [facility]J Comment: Interpretive Data Percent cell count reference ranges are not reported, since discordance with absolute values may lead to misinterpretation of CBC data. Current Interpretive Data was last revised on 2017. Testing performed by: [facility], [address] [place] [phone] Lymphocyte pct 7.8 % [facility] Comment: Interpretive Data Percent cell count reference ranges are not reported, since discordance with absolute values may lead to misinterpretation of CBC data. Current Interpretive Data was last revised on 2017. Testing performed by: [facility], [address] [facility] [address] Monocyte pct 9.2 % [facility] Comment:Testing performed by : [facility], [address] [place] [phone] Eosinophil pct 0.2 % [facility] Comment:Testing performed by : [facility], [address] [place] [phone] Basophil pct 0.3 % [facility] Comment:Testing performed by : [facility], [address] [place] [phone] Blood 03/27/2021 2:25 PM CDT 03/27/2021 2:30 PM CDT Eren Cr MD LAB BLOOD ORDERABLES Final Re sult Performing Organization Address City/[facility]/ZIP Co de Phone Number [facility] Department [place] [address] * Phosphorus (03/27/2021 2:25 PM CDT) [facility] Phosphorus, pl 2.8 2.3 - 4.5 mg/dL [facility] Comment:Testing performed by : [facility], [address] [place] [phone] Blood 03/27/2021 2:25 PM CDT 03/27/2021 2:30 PM CDT Eren Cr MD LAB BLOOD ORDERABLES Final Re sult [facility] [place] [address] * Vitamin D 25 hydroxy (03/27/2021 2:25 PM CDT) Pathologist [facility] Vitamin D 25-OH 31 30 - 80 ng/mL [facility] Blood 03/27/2021 2:25 PM CDT 03/27/2021 2:54 PM CDT us Eren Cr MD LAB BLOOD ORDERABLES Final Re sult [facility] Department [place] [address] * (ABNORMAL) CBC with auto differential (03/27/2021 2:25 PM CDT) WBC 6.6 3.8 - 9.8 K/cumm JASON BLACK Comment:Testing performed by : [facility], [address] [place] [phone] Hgb 11.8(L) 12.1 - 15.1 g/dL JASON BLACK Comment:Testing performed by : [address] [address] Hct 35.6(L) 36.1 - 44.3 % JASON BLACK Comment:Testing performed by : [facility], [address] [place] [phone] Plt 199 140 - 440 K/cumm JASON BLACK Comment:Testing performed by : [address] [phone] MPV 8.4 6.8 - 10.[address] [facility] Comment:Testing performed by : [address] [address] RBC 4.08 3.90 - 5.00 M/cumm JASON BLACK Comment:Testing performed by : [facility], [address] [place] [phone] MCV 87.3 80.0 - 97.6 fL J[facility]ON BLACK Comment:Testing performed by : [address] [address] MCH 29.0 26.7 - 33.7 pg JASON BLACK Comment:Testing performed by : [address] [address] MCHC 33.2 32.7 - 35.5 g/dL [facility] BLACK Comment:Testing performed by : [facility], [address] [place] [phone] RDW CV 14.7(H) 11.8 - 14.6 % [facility] BLACK Comment:Testing performed by : [facility], [address] [place] [phone] NRBC abs 0.01 0.00 - 0.01 K/cumm J[facility] BLACK Comment:Testing performed by : [facility], [address] [place] [phone] Blood 03/27/2021 2:25 PM CDT 03/27/2021 2:30 PM CDT us Eren Cr MD LAB BLOOD ORDERABLES Final Re sult [facility]ASON BLACK [facility] Department [place] [address] * (ABNORMAL) Comprehensive metabolic panel (03/27/2021 2:25 PM CDT) Sodium 140 135 - 145 mmol/L [facility] BLACK Comment:Testing performed by : [facility], [address] [place] [phone] Potassium, pl 3.6 3.3 - 4.9 mmol/L [facility] BLACK Comment:Testing performed by : [facility], [address] [place] [phone] Chloride 102 97 - 110 mmol/L [facility] BLACK Comment:Testing performed by : [facility], [address] [place] [phone] CO2 27 22 - 32 mmol/L [facility] BLACK Comment:Testing performed by : [facility], [address] [place] [phone] Anion gap 11 2 - 15 mmol/L [facility] BLACK Comment:Testing performed by : [facility], [address] [place] [phone] BUN 23 8 - 25 mg/dL J[facility] BLACK Comment:Testing performed by : [facility], [address] [place] [phone] Creatinine 1.00 0.60 - 1.10 mg/dL JASON BLACK Comment:Testing performed by : [facility], [address] [place] [phone] Glucose 177 70 - 199 mg/dL [facility]ER BJ Comment: [...] was last revised 2017. Testing performed by: [address] Calcium 10.9(H) 8.5 - 10.3 mg/dL [facility] BJ Comment:Testing performed by : [place] [phone] Bilirubin, total 0.4 0.1 - 1.2 mg/dL [facility] BJ Comment:Testing performed by : [address] [phone] Protein, pl 6.9 6.5 - 8.5 g/dL [facility]J Comment:Testing performed by : [address] [phone] Albumin 4.1 3.5 - 5.0 g/dL [facility]J Comment:Testing performed by : [address] [phone] Alk phos 131(H) 40 - 130 Units/L [facility]J Comment:Testing performed by : [place] [phone] ALT 25 7 - 45 Units/L [facility] BJ Comment:Testing performed by : [place] [phone] AST 30 10 - 45 Units/L [facility] Comment:Testing performed by : [address] [phone] Blood 03/27/2021 2:25 PM CDT 03/27/2021 2:30 PM CDT Eren Cr MD LAB BLOOD ORDERABLES Final Re sult Performing Organization Address [facility] Co de Phone Number [facility] Department [place] [address] * (ABNORMAL) Chromogranin A (03/27/2021 2:25 PM CDT) Pathologist [facility] Chromogranin A 980(H) <93 ng/mL [facility] Comment: Impaired renal or hepatic function or treatment with proton pump inhibitors may result in artifactual elevations of Chromogranin A. ADDITIONAL INFORMATION This test was developed and its performance characteristics determined by [facility] in a manner consistent with CLIA requirements. This test has not been cleared or approved by the U.S. Food and Drug Administration. The testing method is a homogeneous time-resolved immunofluorescent assay manufactured by [employer] and performed on the [employer] Kryptor Compact Plus. ? Values obtained with different assay methods or kits may be different and cannot be used interchangeably. ? Test results cannot be interpreted as absolute evidence for the presence or absence of malignant disease. Test Performed by: [place] [address] Customer Service Dispatcher: Immanuel Noavk M.D. Ph.D.; CLIA# [id number] Blood 03/27/2021 2:25 PM CDT 03/27/2021 4:10 PM CDT Eren Cr MD LAB BLOOD ORDERABLES Final Re sult Performing Organization Address [facility] Co de Phone Number [facility] Department [place] [address] * (ABNORMAL) Lipid panel (03/27/2021 2:25 PM CDT) Cholesterol 200(H) 30 - 199 mg/dL [facility] [...] Data was last revised on 2018. Triglycerides 195(H) <=149 mg/dL [facility] Comment: Interpretive [...] Data was last revised on 2018. HDL 73 >=40 mg/dL [facility] Comment: Interpretive [...] was last revised on 2018. LDL, calculated 88 <=129 mg/dL [facility] Comment: Interpretive [...] was last revised on 2018. Non-HDL Cholesterol 127 mg/dL [facility] Comment: Interpretive [...] ratio 3 [facility] Blood 03/27/2021 2:25 PM CDT 03/27/2021 2:54 PM CDT us Eren Cr MD LAB BLOOD ORDERABLES Final Re sult [facility] Department [place] [address] documented in this encounter Visit Diagnoses Diagnosis Neuroendocrine carcinoma (HCC) Other malignant neoplasm of unspecified site Malignant neoplasm metastatic to liver (HCC) documented in this encounter Orders Appointment Requests Count Last Ordered Date Fi rst Ordered Date ONCBCN LAB APPOINTMENT 1 03/27/2021 documented in this encounter Care Teams Processing Analyst Relationship Specialty Start Date End Date Julio César Briseno MD PCP - General 10/01/16 Eren Cr MD Referring Physician Medical Oncology 11/25/18 Yohana Bowen MD Radiation Oncologist Radiation Oncology 11/25/18 Sabrina Willard NP [address] [place] [address] Nurse Practitioner Medical Oncology 08/17/20 11/26/21 documented as of this encounter
--- OUTSIDE RECORDS SUMMARY | 2024-06-25 22:27 | XMS_ITS | Encounter Summary ---
Author Organization [facility] Address [address] [place] [address] Phone Care Team Providers Care Fashion Model Name Role Phone Julio César Briseno MD Primary Care Provider [phone] Eren Cr MD Unavailable [phone] Yohana Bowen MD Unavailable Sabrina Willard NP Unavailable [phone] Reason for Visit * Episode Based Medications (Routine) - Authorized Specialty Diagnoses / Procedures Referred By Contac t Referred To Contact Oncology Diagnoses 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) Procedures IA DENOSUMAB INJECTION DENOSUMAB (XGEVA) Eren Cr MD [address] [facility] [address] [place] [address] Phone: tel: fax: [facility] [address] [facility] 7th [place] [address] Phone: tel: Referral ID Status Reason Start Date Expiration Date V isits Requested Visits Authorized [id number] Authorized 03/02/2019 10/06/2024 1 60 Encounter Details Date Type Department Care Team (Late st Contact Info) Description 03/09/2021 8:00 AM CDT Infusion [facility] Oncology [address] [facility] 7th [place] [address] Neuroendocrine carcinoma (CMS/HCC) (HCC) (Primary Dx); Dehydration; CINV (chemotherapy-induced nausea and vomiting); Bone metastasis (CMS/HCC) (HCC); Neuro-endocrine carcinoma (CMS/HCC) [...] on file 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 Gender Identity Not on file Sexual Orientation Straight 02/19/2021 9: 29 AM CDT Occupation Industry Job Start Date Job End Date retired Not on file Not on file Not on file documented as of this encounter Last Filed Vital Signs Vital Sign Reading Time Taken Comments Blood Pressure 143/76 03/09/2021 7:45 AM CDT Pulse 73 03/09/2021 7:59 AM CDT Temperature 36.1 ??C (97 ??F) 03/09/2021 7:45 AM CDT Respiratory Rate 20 03/09/2021 7:45 AM CDT Oxygen Saturation 96% 03/09/2021 7:45 AM CDT Inhaled Oxygen Concentration - - Weight 80.3 kg (177 lb 0.5 oz) 03/09/2021 7:45 A M CDT Height - - Body Mass Index 31.36 02/16/2021 2:43 PM CDT documented in this encounter Nursing Notes * Cecilia Lucio, RN - 03/09/2021 8:00 AM CDT Oncology Nursing Note [facility] La Chung is a 70 y.o. female who presents for hydration therapy2. Pre-treatment Nursing Assessment Nursing Assessment Appetite:: Fair ( I dont eat like i used too, i eat less Drinking fluids , water, feels could be drinking more) Diarrhea:: Yes (ostomy) Constipation:: No Last BM Date: (ostomy, independent in care. Stoma pink per pt, emptied this morning) Existing Patients: Any falls since your last visit? : No Fatigue:: Occassional Mouth Sores:: No ( rough spot on roof of the mouth on the left, it doesnt hurt Verbalizes understanding to call MD if worsens or hurts and to try salt water rinses) Nausea/Vomiting:: Yes ( since last Saturday discussed with team , last of which yesterday . Vomited 4 times during last week) Pain:: No Peripheral Neuropathy: : No Pt states has potential to be ? : No Shortness of Breath?: No Lungs auscultated PRN:: No Pt is on oxygen? : No Respiratory Effort Characteristics: Dyspnea exertion (resolves with rest) Skin Condition/Temp: Warm, Dry, No swelling Abdomen: Soft Swelling:: No Additional Notes: pt previously spoke with team About nausea, vomiting and emptying ostomy more. BP: 143/76 Temp: 36.1 ??C (97 ??F) Temp src: Temporal Pulse: 73 Resp: 20 SpO2: 96 % Weight: 80.3 kg (177 lb 0.5 oz) Pain Score: 0 - No pain Treatment Patient: met treatment parameters Pre blood return: Brisk La Karishma Robertod tolerated treatment well. Additional Notes: To return as per appts, utilizes My Chart. Post blood return: Brisk IV access post infusion: NS Patient Education Treatment Education: Information/teaching given to patient including Symptom management, mouth carept ed sheet ; to continue to talk with team as needed for any issues with nausea, vomiting, diarrhea. Response: Verbalizes understanding Discharge Plan Discharge instructions given to patient. Future appointments given and reviewed with treatment plan. Discharge Mode: Wheelchair Accompanied by: Self accompanied by sister Discharged To: Home documented in this encounter Plan of Treatment Not on file documented as of this encounter Visit Diagnoses Diagnosis Neuroendocrine carcinoma (HCC)- Primary Other malignant neoplasm of unspecified site Dehydration CINV (chemotherapy-induced nausea and vomiting) Bone metastasis Secondary malignant neoplasm of bone and bone marrow Neuro-endocrine carcinoma (HCC) Other malignant neoplasm of unspecified site documented in this encounter Administered Medications Inactive Administered Medications - up to 3 most recent administrations Medication Order MAR Action Action Date Dose Rate Site sodium chloride 0.9% bolus 1,000 mL 1,000 mL, intravenous, at 500 mL/hr, Administer over 2 Hours, Once, On Lydia 03/09/21 at 0830, For 1 doseIndications:Bone metastasis,Neuro-endocrine carcinoma (HCC) New Bag 03/09/2021 7:55 AM CDT 1,000 mL 500 mL/hr documented in this encounter Orders Medications Ordered That Brett ht Not Have Been Administered Count Last Ordered Date First Ordered Date sodium chloride 0.9% bolus 1,000 mL 1 03/09 Appointment Requests Count Last Ordered Date Fi rst Ordered Date ONCBCN INFUSION APPT REQUEST 1 03/09/2021 documented in this encounter Care Teams Fashion Model Relationship Specialty Start Date End Date Julio César Briseno MD PCP - General 10/01/16 Eren Cr MD Referring Physician Medical Oncology 11/25/18 Yohana Bowen MD Radiation Oncologist Radiation Oncology 11/25/18 Sabrina Willard NP [facility] [address] [place] [address] Nurse Practitioner Medical Oncology 08/17/20 11/26/21 documented as of this encounter
--- OUTSIDE RECORDS SUMMARY | 2024-06-25 22:27 | XMS_ITS | Encounter Summary ---
Author Organization [facility] Address [address] [place] [address] Phone Care Team Providers Care Rn Provider Relations Name Role Phone Julio César Briseno MD Primary Care Provider [phone] Eren Cr MD Unavailable [phone] Yohana Bowen MD Unavailable Sabrina Willard NP Unavailable [phone] Reason for Visit * Reason Comments Injections * Episode Based Medications (Routine) - Authorized Specialty Diagnoses / Procedures Referred By Contac t Referred To Contact Oncology Diagnoses Neuroendocrine carcinoma (HCC) Malignant neoplasm metastatic to liver (HCC) Procedures [place] OCTREOTIDE INJECTION, DEPOT Octreotide 28 Day Cycles - Carcinoid Eren Cr MD [address] [facility] [address] [place] [address] Phone: tel: fax: [address] [address] Phone: tel: fax: Referral ID Status Reason Start Date Expiration Date V isits Requested Visits Authorized [id number] Authorized 11/28/2017 02/05/2025 1 150 Encounter Details Date Type Department Care Team (Late st Contact Info) Description 02/27/2021 10:00 AM CDT Infusion [facility] Oncology [address] [facility] 7th [place] [address] Neuroendocrine carcinoma (CMS/HCC) (HCC) (Primary Dx); Malignant [...] on file 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 female who presents for the following injection: octreotide/denosumab. Nursing Assessment Nursing Assessment Appetite:: Fair Diarrhea:: Yes Constipation:: No Last BM Date: 02/27/21 Existing Patients: Any falls since your last visit? : No Fatigue:: Constant Mouth Sores:: No Nausea/Vomiting:: No Pain:: No Peripheral Neuropathy: : No Pt states has potential to be ? : No Shortness of Breath?: No Respiratory Effort Characteristics: Dyspnea exertion Skin Condition/Temp: Dry, Warm Oral Mucosa Grade: Normal (0) Abdomen: Soft Swelling:: No BP: 107/58 Temp: 36.3 ??C (97.3 ??F) Temp src: Temporal Pulse: 86 Resp: 16 SpO2: 97 % Weight: 80.7 kg (178 lb) Patient: met treatment parameters La Chung [...] 120 mg 120 mg, subcutaneous, Once, On Sat02/27/21 at 1000, For 1 dose, Calcium level should be greater than 8 mg/dl Administer injection in upper arm, abdomen or upper thigh Refrigerate. Allow to stand 15 to 30 mins prior to useIndications:Bone metastasis,Neuro-endocrine carcinoma (HCC) Given 02/27/2021 10:05 AM CDT 120 mg Right Lower Abdomen octreotide LAR (SandoSTATIN LAR) extended release intramuscular injection 30 mg 30 mg, intramuscular, Once, On Sat02/27/21 at 1000, For 1 dose, Refrigerate. For IM intragluteal administration only- alternate gluteal sites. Shake.Indications:Malignan t neoplasm metastatic to liver (HCC),Neuroendocrine carcinoma (HCC) Given 02/27/2021 10:05 AM CDT 30 mg Left Dorsogluteal/Butto ck documented in this encounter Orders Nursing Count Last Ordered Date First Orde red Date ONCBCN NURSING COMMUNICATION [id number] 1 02/27 ONCBCN NURSING COMMUNICATION [id number] 1 0 02/27/2021 PHYSICIAN COMMUNICATION ORDER 1 02/27/2021 Appointment Requests Count Last Ordered Date Fi rst Ordered Date ONCBCN INJECTION APPOINTMENT REQUEST 1 02/06 documented in this encounter Care Teams Rn Provider Relations Relationship Specialty Start Date End Date Julio César Briseno MD PCP - General 10/01/16 Eren Cr MD Referring Physician Medical Oncology 11/25/18 Yohana Bowen MD Radiation Oncologist Radiation Oncology 11/25/18 Sabrina Willard NP [address] [place] [address] Nurse Practitioner Medical Oncology 08/17/20 11/26/21 documented as of this encounter
--- OUTSIDE RECORDS SUMMARY | 2024-06-25 22:27 | XMS_ITS | Encounter Summary ---
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 Gender Identity Not on file Sexual Orientation Straight 02/19/2021 9: 29 AM CDT Occupation Industry Job Start Date Job End Date retired Not on file Not on file Not on file documented as of this encounter Plan of Treatment Not on file documented as of this encounter Procedures Procedure Name Priority Date/Time Associated Diagnosis Comments EGFR STAT 02/27/2021 8:11 AM CDT 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) DIFFERENTIAL AUTO Routine 02/27/2021 8:1 1 AM CDT 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) CHROMOGRANIN A Routine 02/27/2021 8:11 AM CDT 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) CBC WITH AUTO DIFFERENTIAL Routine 02/27/2021 8:11 AM CDT 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) VITAMIN D 25 HYDROXY Routine 02/27/2021 8:11 AM CDT 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) PHOSPHORUS Routine 02/27/2021 8:11 AM CDT 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) LIPID PANEL Routine 02/27/2021 8:11 AM CDT 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) COMPREHENSIVE METABOLIC PANEL STAT 02/27/2021 8:11 AM CDT 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) documented in this encounter Results * (ABNORMAL) eGFR (02/27/2021 8:11 AM CDT) [facility] eGFR 60(L) 90 - 130 mL/min/1.7 3 m2 [facility] Comment: Interpretive Data Reference Interval Normal [...] last reviewed 2020 Testing performed by: [facility], [address] [place] [phone] Blood 02/27/2021 8:11 AM CDT 02/27/2021 8:15 AM CDT us Eren Cr MD LAB BLOOD ORDERABLES Final Re sult [facility] Department [place] [address] * (ABNORMAL) Differential, auto (02/27/2021 8:11 AM CDT) Neutrophil abs 2.3 1.8 - 6.6 K/cumm [facility] Comment:Testing performed by : [facility], [address] [place] [phone] Lymphocyte abs 0.4(L) 1.2 - 3.3 K/cumm [facility] Comment:Testing performed by : [facility], [address] [place] [phone] Monocyte abs 0.6 0.2 - 1.2 K/cumm [facility] Comment:Testing performed by : [facility], [address] [place] [phone] Eosinophil abs 0.2 0.0 - 0.5 K/cumm [facility] Comment:Testing performed by : [facility], [address] [place] [phone] Basophil abs 0.0 0.0 - 0.2 K/cumm [facility] Comment:Testing performed by : [facility], [address] [place] [phone] Neutrophil pct 66.3 % [facility] Comment: Interpretive Data Percent cell count reference ranges are not reported, since discordance with absolute values may lead to misinterpretation of CBC data. Current Interpretive Data was last revised on 2017. Testing performed by: [facility], [address] [place] [phone] Lymphocyte pct 10.7 % [facility] Comment: Interpretive Data Percent cell count reference ranges are not reported, since discordance with absolute values may lead to misinterpretation of CBC data. Current Interpretive Data was last revised on 2017. Testing performed by: [facility], [address] [facility] [phone] Monocyte pct 17.4 % [facility] Comment:Testing performed by : [facility], [address] [facility] [phone] Eosinophil pct 4.4 % [facility] Comment:Testing performed by : [facility], [address] [facility] [phone] Basophil pct 1.2 % [facility] Comment:Testing performed by : [facility], [address] [facility] [phone] Blood 02/27/2021 8:11 AM CDT 02/27/2021 8:15 AM CDT us Eren Cr MD LAB BLOOD ORDERABLES Final Re sult [facility] Department [place] [address] * (ABNORMAL) Lipid panel (02/27/2021 8:11 AM CDT) Cholesterol 154 30 - 199 [...] on 2018. Triglycerides 255(H) <=149 mg/dL [facility] Comment: Interpretive Data [...] on 2018. HDL 65 >=40 mg/dL [facility] Comment: Interpretive Data Ages < or [...] 2018. LDL, calculated 38 <=129 mg/dL [facility] Comment: Interpretive Data Ages < or [...] on 2018. Non-HDL Cholesterol 89 mg/dL [facility] Comment: Interpretive Data Ages < or [...] revised on 2018. Chol/HDL ratio 2 [facility] Blood 02/27/2021 8:11 AM CDT 02/27/2021 8:34 AM CDT Eren Cr MD LAB BLOOD ORDERABLES Final Re sult [facility] Department [place] [address] * Phosphorus (02/27/2021 8:11 AM CDT) Phosphorus, pl 2.7 2.3 - 4.5 mg/dL [facility] Comment:Testing performed by : [facility], [address] [place] [phone] Blood 02/27/2021 8:11 AM CDT 02/27/2021 8:15 AM CDT us Eren Cr MD LAB BLOOD ORDERABLES Final Re sult [facility] [place] [address] * Vitamin D 25 hydroxy (02/27/2021 8:11 AM CDT) Pathologist [facility] Vitamin D 25-OH 33 30 - 80 ng/mL [facility] Blood 02/27/2021 8:11 AM CDT 02/27/2021 8:34 AM CDT Eren Cr MD LAB BLOOD ORDERABLES Final Re sult Performing Organization Address [facility] Co de Phone Number [facility] [place] [address] * (ABNORMAL) CBC with auto differential (02/27/2021 8:11 AM CDT) [facility] WBC 3.4(L) 3.8 - 9.8 K/cumm [facility] Comment:Testing performed by : [facility], [address] [place] [phone] Hgb 13.0 12.1 - 15.1 g/dL [facility] Comment:Testing performed by : [facility], [address] [place] [phone] Hct 37.7 36.1 - 44.3 % [facility] Comment:Testing performed by : [facility], [address] [place] [phone] Plt 121(L) 140 - 440 K/cumm [facility] Comment:Testing performed by : [facility], [address] [place] [phone] MPV 8.5 6.8 - 10.4 fL [facility] Comment:Testing performed by : [facility], [address] [place] [phone] RBC 4.30 3.90 - 5.00 M/cumm [facility] Comment:Testing performed by : [facility], [address] [place] [phone] MCV 87.6 80.0 - 97.6 fL [facility] Comment:Testing performed by : [facility], [address] [place] [phone] MCH 30.2 26.7 - 33.7 pg [facility] Comment:Testing performed by : [facility], [address] [place] [phone] MCHC 34.5 32.7 - 35.5 g/dL [facility] Comment:Testing performed by : [facility], [address] [place] [phone] RDW CV 13.2 11.8 - 14.6 % [facility] Comment:Testing performed by : [facility], [address] [place] [phone] NRBC abs 0.00 0.00 - 0.01 K/cumm [facility] Comment:Testing performed by : [facility], [address] [place] [phone] Blood 02/27/2021 8:11 AM CDT 02/27/2021 8:15 AM CDT Eren Cr MD LAB BLOOD ORDERABLES Final Re sult [facility] Department [place] [address] * (ABNORMAL) Comprehensive metabolic panel (02/27/2021 8:11 AM CDT) Sodium 142 135 - 145 mmol/L [facility] Comment:Testing performed by : [facility], [address] [place] [phone] Potassium, pl 4.4 3.3 - 4.9 mmol/L [facility] Comment:Testing performed by : [address] [phone] Chloride 103 97 - 110 mmol/L [facility] Comment:Testing performed by : [facility], [address] [place] [phone] CO2 30 22 - 32 mmol/L [facility] Comment:Testing performed by : [facility], [address] [place] [phone] Anion gap 9 2 - 15 mmol/L [facility] Comment:Testing performed by : [facility], [address] [place] [phone] BUN 12 8 - 25 mg/dL [facility] Comment:Testing performed by : [facility], [address] [place] [phone] Creatinine 0.95 0.60 - 1.10 mg/dL [facility] Comment:Testing performed by : [address] [phone] Glucose 155 70 - 199 mg/dL CERNER [...] last revised 2017. Testing performed by: [facility], [address] [place] [phone] Calcium 11.1(H) 8.5 - 10.3 mg/dL [facility] Comment:Testing performed by : [facility], [address] [place] [phone] Bilirubin, total 0.5 0.1 - 1.2 mg/dL [facility] Comment:Testing performed by : [address] [phone] Protein, pl 7.2 6.5 - 8.5 g/dL [facility] Comment:Testing performed by : [address] [phone] Albumin 4.4 3.5 - 5.0 g/dL [facility] Comment:Testing performed by : [facility], [address] [place] [address] [place] [address] Alk phos 171(H) 40 - 130 Units/L [facility] Comment:Testing performed by : [facility], [address] [place] [phone] ALT 32 7 - 45 Units/L [facility] Comment:Testing performed by : [facility], [address] [place] [phone] AST 42 10 - 45 Units/L [facility] Comment:Testing performed by : [facility], [address] [place] [phone] Blood 02/27/2021 8:11 AM CDT 02/27/2021 8:15 AM CDT Eren Cr MD LAB BLOOD ORDERABLES Final Re sult [facility] Department [place] [address] * (ABNORMAL) Chromogranin A (02/27/2021 8:11 AM CDT) Chromogranin A 1087(H) <93 ng/mL [facility] Comment: Impaired renal or hepatic function or treatment with proton pump inhibitors may result in artifactual elevations of Chromogranin A. ADDITIONAL INFORMATION This test was developed and its performance characteristics determined by [facility] in a manner consistent with CLIA requirements. This test has not been cleared or approved by the U.S. Food and Drug Administration. The testing method is a homogeneous time-resolved immunofluorescent assay manufactured by [employer]. and performed on the [employer] Kryptor Compact Plus. ? Values obtained with different assay methods or kits may be different and cannot be used interchangeably. ? Test results cannot be interpreted as absolute evidence for the presence or absence of malignant disease. Test Performed by: [facility] [id number] [place] [address] Board Certified Music Therapist: Immanuel Novak M.D. Ph.D.; CLIA# [id number] Blood 02/27/2021 8:11 AM CDT 02/27/2021 8:30 AM CDT Eren Cr MD LAB BLOOD ORDERABLES Final Re sult [facility] Department [place] [address] documented in this encounter Visit Diagnoses Diagnosis Neuroendocrine carcinoma (HCC) Other malignant neoplasm of unspecified site Malignant neoplasm metastatic to liver (HCC) documented in this encounter Orders Appointment Requests Count Last Ordered Date Fi rst Ordered Date ONCBCN LAB APPOINTMENT 1 02/27/2021 documented in this encounter Care Teams Tack Cutter Relationship Specialty Start Date End Date Julio César Briseno MD PCP - General 10/01/16 Eren Cr MD Referring Physician Medical Oncology 11/25/18 Yohana Bowen MD Radiation Oncologist Radiation Oncology 11/25/18 Sabrina Willard NP [address] [place] [address] Nurse Practitioner Medical Oncology 08/17/20 11/26/21 documented as of this encounter
--- OUTSIDE RECORDS SUMMARY | 2024-06-25 22:27 | XMS_ITS | Encounter Summary ---
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) Procedures NM OCTREOTIDE INJECTION, DEPOT Octreotide 28 Day Cycles - Carcinoid Eren Cr MD [address] [facility] [address] [place] [address] Phone: tel: fax: [facility] [address] [address] Phone: tel: fax: Referral ID Status Reason Start Date Expiration Date V isits Requested Visits Authorized [id number] Authorized 11/28/2017 02/05/2025 1 150 Encounter Details Date Type Department Care Team (Late st Contact Info) Description 03/27/2021 2:30 PM CDT Office Visit [facility] On[facility] [address] [facility] 7th [place] [address] [place] [address] Eren Cr MD [address] [place] [address] Neuro-endocrine carcinoma (CMS/HCC) (HCC) (Primary Dx); Bone [...] on file 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 Gender Identity Not on file Sexual Orientation Straight 02/19/2021 9: 29 AM CDT Occupation Industry Job Start Date Job End Date retired Not on file Not on file Not on file documented as of this encounter Last Filed Vital Signs Vital Sign Reading Time Taken Comments Blood Pressure 146/63 03/27/2021 2:47 PM CDT Pulse 89 03/27/2021 2:47 PM CDT Temperature 36.3 ??C (97.3 ??F) 03/27/2021 2:47 PM CD T Respiratory Rate 16 03/27/2021 2:47 PM CDT Oxygen Saturation 96% 03/27/2021 2:47 PM CDT Inhaled Oxygen Concentration - - Weight 80.3 kg (177 lb) 03/27/2021 2:47 PM CDT Height - - Body Mass Index 29.45 03/23/2021 4:54 PM CDT documented in this encounter Progress Notes * Eren Cr Jr., MD - 03/27/2021 2:30 PM CDT La Chung : 1950 DATE OF VISIT: 03/27/21 Cancer Staging Malignant neoplasm metastatic to liver [...] - Carcinoid Current day: Day 1, Cycle 38 (Planned for 03/27/2021) Following planned day: Day 1, Cycle 39 (Planned for 04/24/2021) Oncology Supportive Care: DENOSUMAB (XGEVA) INJECTION & HYDRATION THERAPY PLAN Current treatment: Treatment 15 (Planned for 03/23/2021) Following planned treatment: Treatment 16 (Planned for 03/27/2021) INTERVAL HISTORY Ms. La Chung is a 70 y.o. Non- female with a history of metastatic neuroendocrine tumor who presents for follow-up routine oncologic care. She stated that she has been having URI symptoms with congestion, cough and dyspnea on exertion. Weasked her to have a COVID testing and her rapid test, we were told was negative. Her CT scan showednew peripheral and basilar ground glass opacification suggestive of new organizing pneumonia with no CT evidence of progressive cancer in the chest. She currently denies any fevers. She had since stopped her everolimus. Her O2 saturation in clinic was 96%. PAST MEDICAL HISTORY: Past Medical History: Diagnosis [...] ??? JOINT REPLACEMENT Left 2014 ? ? NM REMOVAL OF TONSILS,<12 Y/O Tonsillectomy - (Added by TW Conv) ??? NM TOTAL ABDOM HYSTERECTOMY Hysterectomy - (Added by [...] mg capsule, Take 1 tablet by mouth chief of production before breakfast, Disp: , Rfl: ??? cholecalciferol (VITAMIN D-3) 2,000 unit capsule, Take 1 capsule (2,000 Units total) by mouth daily (Patient taking differently: Take 2,000 Units by mouth daily ), Disp: 30 capsule, Rfl: 2 ??? clotrimazole-betamethasone (LOTRISONE) cream, clotrimazole-betamethasone 1 %-0.05 % topical cream APPLY EXTERNALLY TO ABDOMEN TWICE DAILY NEEDED, Disp: , Rfl: ??? coenzyme S04-erupcml E (CO Q-10, WITH VIT E,) 100-5 mg-unit capsule, Take by mouth chief of production before breakfast , Disp: , Rfl: ??? [...] taking differently: Take 30 mg by mouth chief of production before breakfast ), Disp: 30 capsule, Rfl: [...] per tablet, Take 0.5 tablets by mouth chief of production before breakfast decrease dosage to 0.5 tablet [...] pain, Disp: 8 tablet, Rfl: 0 ??? predniSONE (DELTASONE) 20 mg tablet, TAKE 2 TABLETS BY MOUTH EVERY DAY FOR 5 DAYS, Disp: , Rfl: ??? simvastatin (ZOCOR) 20 mg tablet, Take [...] Status: ECOG 1. Vital signs: Vitals BP 146/63 (BP Location: Left arm) Pulse 89 Temp 36.3 ??C (97.3 ??F) (Temporal) Resp 16 Wt 80.3 kg (177 lb) SpO2 96% BMI 29.45 kg/m?? General: She is a 70 y.o. female and is in no acute distress. Mental Status: Awake, alert, and oriented. Answers questions appropriately and is cooperative. Doesnot appear anxious. No slurred speech. HEENT: Normocephalic, atraumatic, and symmetric. EOMI. Sclera anicteric. Neck: Supple. Trachea midline. Lymphatics: No palpable [...] 24 hour(s)) Comprehensive metabolic panel Collection Time: 03/27/21 2:25 PM Result Value Ref Range Sodium 140 135 - 145 mmol/L Potassium, pl 3.6 3.3 - 4.9 mmol/L Chloride 102 97 - 110 mmol/L CO2 27 22 - 32 mmol/L Anion gap 11 2 - 15 mmol/L BUN 23 8 - 25 mg/dL Creatinine 1.00 0.60 - 1.10 mg/dL Glucose 177 70 - 199 mg/dL Calcium 10.9 (H) 8.5 - 10.3 mg/dL Bilirubin, total 0.4 0.1 - 1.2 mg/dL Protein, pl 6.9 6.5 - 8.5 g/dL Albumin 4.1 3.5 - 5.0 g/dL Alk phos 131 (H) 40 - 130 Units/L ALT 25 7 - 45 Units/L AST 30 10 - 45 Units/L CBC with auto differential Collection Time: 03/27/21 2:25 PM Result Value Ref Range WBC 6.6 3.8 - 9.8 K/cumm Hgb 11.8 (L) 12.1 - 15.1 g/dL Hct 35.6 (L) 36.1 - 44.3 % Plt 199 140 - 440 K/cumm MPV 8.4 6.8 - 10.4 fL RBC 4.08 3.90 - 5.00 M/cumm MCV 87.3 80.0 - 97.6 fL MCH 29.0 26.7 - 33.7 pg MCHC 33.2 32.7 - 35.5 g/dL RDW CV 14.7 (H) 11.8 - 14.6 % NRBC abs 0.01 0.00 - 0.01 K/cumm Phosphorus Collection Time: 03/27/21 2:25 PM Result Value Ref Range Phosphorus, pl 2.8 2.3 - 4.5 mg/dL Differential, auto Collection Time: 03/27/21 2:25 PM Result Value Ref Range Neutrophil abs 5.5 1.8 - 6.6 K/cumm Lymphocyte abs 0.5 (L) 1.2 - 3.3 K/cumm Monocyte abs 0.6 0.2 - 1.2 K/cumm Eosinophil abs 0.0 0.0 - 0.5 K/cumm Basophil abs 0.0 0.0 - 0.2 K/cumm Neutrophil pct 82.5 % Lymphocyte pct 7.8 % Monocyte pct 9.2 % Eosinophil pct 0.2 % Basophil pct 0.3 % eGFR Collection Time: 03/27/21 2:25 PM Result Value Ref Range eGFR 56 (L) 90 - 130 mL/min/1.73 m2 Hematology Lab History Some values may be hidden. Unless noted otherwise, only the newest values recorded on each date aredisplayed. Labs - Hematology Latest Ref Range 02/27/21 03/09/21 03/17/21 03/27/21 WBC 3.8 - 9.8 K/cumm 3.4 (A) 2.3 (A) 2.9 (A) 6.6 Total Hb, POC 12.1 - 15.1 g/dL 13.0 11.8 (A) 11.3 (A) 11.8 (A) Hct 36.1 - 44.3 % 37.7 35.3 (A) 33.0 (A) 35.6 (A) Plt 140 - 440 K/cumm 121 (A) 78 (A) 95 (A) 199 Neutrophil abs 1.8 - 6.6 K/cumm 2.3 1.6 (A) 2.1 5.5 Lymphocytes, abs 1.2 - 3.3 K/cumm 0.4 (A) 0.2 (A) 0.2 (A) 0.5 (A) (A) Abnormal value Comments are available for some flowsheets but are not being displayed. Chem/LFT Lab History Some values may be hidden. Unless noted otherwise, only the newest values recorded on each date aredisplayed. Labs-Chem/LFT Latest Ref Range 03/09/21 03/17/21 03/23/21 03/27/21 Sodium 135 - 145 mmol/L 137 137 140 Creatinine 0.60 - 1.10 mg/dL 1.14 (A) 0.82 1.00 Bilirubin, total 0.1 - 1.2 mg/dL 0.3 0.4 0.4 AST 10 - 45 Units/L 44 36 30 ALT 7 - 45 Units/L 31 28 25 CrCl- Actual Body Weight (Cockcroft-Gault) 56.5 79.2 67.4 64.5 (A) Abnormal value Comments are available for some flowsheets but are not being displayed. Tumor Marker History Some values may be hidden. Unless noted otherwise, only the newest values recorded on each date aredisplayed. Tumor Markers Latest Ref Range 12/06/20 01/02/21 01/30/21 02/27/21 Chromogranin A <93 ng/mL 789 (A) 779 (A) 1181 (A) 1087 (A) (A) Abnormal value Comments are available [...] who presents for routine oncologic care. 1. Neuroendocrine tumor- We discussed that due to her CT scan findings of groundglass opacities/possible organizing pneumonia, we will hold off on everolimus. Discussed that everolimus can be associated with pulmonary infiltrates, but generally, not associated with congestion and URI symptoms. She would like to proceed with her octreotide injection. 2. Groundglass opacities in lung. Despite alleged negative COVID test, I am unclear I this still represents COVID or other respiratory infection. I have advised her to see her PCP and she has an appointment tomorrow. Currently, she appears stable. As such we will plan on having La Chung return in 1 month with labs. All of her questions wereanswered. She understands and was in agreement with the plan of care. She knows to call the office in the interim with any symptoms, questions, or concerns. documented in this encounter Plan of Treatment Not on file documented as of this encounter Results * (ABNORMAL) Chromogranin A (04/24/2021 2:54 PM CDT) Pathologist [facility] Chromogranin A 1125(H) <93 ng/mL [facility] Comment: Impaired renal or [...] homogeneous time-resolved immunofluorescent assay manufactured by [employer] and performed on the [employer] Kryptor Compact Plus. ? Values obtained with different assay methods or kits may be different and cannot be used interchangeably. ? Test results cannot be interpreted as absolute evidence for the presence or absence of malignant disease. Test Performed by: [address] [address] [place]: Immanuel Novak M.D. Ph.D.; CLIA# [id number] Blood 04/24/2021 2:54 PM CDT 04/24/2021 4:52 PM CDT us Eren Cr MD LAB BLOOD ORDERABLES Final Re sult [facility] Department [place] [address] * (ABNORMAL) Comprehensive metabolic panel (04/24/2021 2:54 PM CDT) Sodium 139 135 - 145 mmol/L [facility] Comment:Testing performed by : [facility], [address] [place] [phone] Potassium, pl 4.2 3.3 - 4.9 mmol/L [facility] Comment:Testing performed by : [facility], [address] [place] [phone] Chloride 106 97 - 110 mmol/L [facility] Comment:Testing performed by : [facility], [address] [place] [phone] CO2 26 22 - 32 mmol/L [facility] Comment:Testing performed by : [facility], [address] [place] [phone] Anion gap 7 2 - 15 mmol/L [facility] Comment:Testing performed by : [facility], [address] [place] [phone] BUN 14 8 - 25 mg/dL [facility] Comment:Testing performed by : [facility], [address] [place] [phone] Creatinine 0.91 0.60 - 1.10 mg/dL [facility] Comment:Testing performed by : [facility], [address] [place] [phone] Glucose 135 70 - 199 mg/dL [facility] Comment: Interpretive Data Fasting glucose >/= 126 [...] last revised 2017. Testing performed by: [facility], [address] [place] [phone] Calcium 10.4(H) 8.5 - 10.3 mg/dL [facility] Comment:Testing performed by : [facility], [address] [place] [phone] Bilirubin, total 0.5 0.1 - 1.2 mg/dL [facility] Comment:Testing performed by : [facility], [address] [place] [phone] Protein, pl 7.2 6.5 - 8.5 g/dL [facility] Comment:Testing performed by : [facility], [address] [place] [phone] Albumin 4.4 3.5 - 5.0 g/dL [facility] Comment:Testing performed by : [facility], [address] [place] [phone] Alk phos 107 40 - 130 Units/L [facility] Comment:Testing performed by : [address] [phone] ALT 20 7 - 45 Units/L [facility] Comment:Testing performed by : [facility], [address] [place] [phone] AST 24 10 - 45 Units/L [facility] Comment:Testing performed by : [address] [phone] Blood 04/24/2021 2:54 PM CDT 04/24/2021 2:55 PM CDT us Eren Cr MD LAB BLOOD ORDERABLES Final Re sult [facility] Department [place] [address] * (ABNORMAL) CBC with auto differential (04/24/2021 2:54 PM CDT) WBC 4.7 3.8 - 9.8 K/cumm [facility] Comment:Testing performed by : [facility], [address] [place], [place] [phone] Hgb 12.7 12.1 - 15.1 g/dL [facility] Comment:Testing performed by : [facility], [address] [place], [place] [phone] Hct 37.9 36.1 - 44.3 % [facility] Comment:Testing performed by : [facility], [address] [place], [place] [phone] Plt 182 140 - 440 K/cumm [facility] Comment:Testing performed by : [place] [address] MPV 7.7 6.8 - 10.4 fL [facility] Comment:Testing performed by : [place] [address] RBC 4.15 3.90 - 5.00 M/cumm [facility] Comment:Testing performed by : [facility], [address] [place], [place] [phone] MCV 91.4 80.0 - 97.6 fL [facility] Comment:Testing performed by : [place] [id number] MCH 30.6 26.7 - 33.7 pg [facility] Comment:Testing performed by : [place] [address] MCHC 33.4 32.7 - 35.5 g/dL [facility] Comment:Testing performed by : [facility], [address] [place], [place] [phone] RDW CV 20.2(H) 11.8 - 14.6 % [facility] Comment:Testing performed by : [place] [address] NRBC abs 0.00 0.00 - 0.01 K/cumm [facility] Comment:Testing performed by : [place] [phone] Blood 04/24/2021 2:54 PM CDT 04/24/2021 2:55 PM CDT Eren Cr MD LAB BLOOD ORDERABLES Final Re sult Performing Organization Address [facility] Co de Phone Number [facility] [employer] [place] [address] * Vitamin D 25 hydroxy (04/24/2021 2:54 PM CDT) Vitamin D 25-OH 30 30 - 80 ng/mL [facility] Blood 04/24/2021 2:54 PM CDT 04/24/2021 3:28 PM CDT Eren Cr MD LAB BLOOD ORDERABLES Final Re sult Performing Organization Address [facility] [place] [address] * Phosphorus (04/24/2021 2:54 PM CDT) Pathologist [facility] Phosphorus, pl 2.9 2.3 - 4.5 mg/dL [facility] Comment:Testing performed by : [facility], [address] [place] [phone] Blood 04/24/2021 2:54 PM CDT 04/24/2021 2:55 PM CDT Result [facility] Eren Cr MD LAB BLOOD ORDERABLES Final Re sult Performing Organization Address [facility] Co de Phone Number [place], [place] [id number] * (ABNORMAL) Lipid panel (04/24/2021 2:54 PM CDT) [facility] Cholesterol 184 30 - 199 mg/dL [facility] Comment: Interpretive Data Ages < or [...] on 2018. Triglycerides 308(H) <=149 mg/dL [facility] Comment: Interpretive [...] on 2018. HDL 65 >=40 mg/dL [facility] Comment: [...] on 2018. LDL, calculated 57 <=129 mg/dL [facility] Comment: Interpretive Data Ages [...] revised on 2018. Non-HDL Cholesterol 119 mg/dL [facility] Comment: Interpretive Data Ages < or [...] last revised on 2018. 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 predniSONE (DELTASONE) 20 mg tablet TAKE 2 TABLETS BY MOUTH EVERY DAY FOR 5 DAYS 03/24/2021 05/22/2021 doxycycline hyclate 100 mg capsule TAKE 1 CAPSULE BY MOUTH EVERY 12 HOURS FOR 10 DAYS 03/24/2021 11/13/2021 albuterol HFA (PROVENTIL HFA,VENTOLIN HFA,PROAIR HFA) 90 mcg/actuation inhaler INHALE 1 PUFF BY MOUTH EVERY 4 HOURS 03/24/2021 11/13/2021 added in this encounter Orders Appointment Requests Count Last Ordered Date Fi rst Ordered Date ONCBCN CLINIC APPOINTMENT REQUEST 2 021 03/27/2021 ONCBCN INJECTION APPOINTMENT REQUEST 1 04/07 ONCBCN LAB APPOINTMENT 1 04/24/2021 documented in this encounter Care Teams Go Cart Mechanic Relationship Specialty Start Date End Date Julio César Briseno MD PCP - General 10/01/16 Eren Cr MD Referring Physician Medical Oncology 11/25/18 Yohana Bowen MD Radiation Oncologist Radiation Oncology 11/25/18 Sabrina Willard NP [address] [place] [address] Nurse Practitioner Medical Oncology 08/17/20 11/26/21 documented as of this encounter
--- OUTSIDE RECORDS SUMMARY | 2024-06-25 22:27 | XMS_ITS | Encounter Summary ---
Author Organization [facility] Address [address] [place] [address] Phone Care Team Providers Care Drilling Plant Operator Name Role Phone Julio César Briseno MD Primary Care Provider [phone] Eren Cr MD Unavailable [phone] Yohana Bowen MD Unavailable Sabrina Willard NP Unavailable Encounter Details Date Type Department Care Team (Late st Contact Info) Description 03/16/2021 Orders Only [facility] Oncology [address] [facility] 7th [place] [address] [place] [address] Eren Cr MD [address] [facility] [address] [place] [address] Neuro-endocrine carcinoma (CMS/HCC) (HCC) (Primary Dx) Social [...] on file 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 Gender Identity Not on file Sexual Orientation Straight 02/19/2021 9: 29 AM CDT Occupation Industry Job Start Date Job End Date retired Not on file Not on file Not on file documented as of this encounter Plan of Treatment Not on file documented as of this encounter Results * (ABNORMAL) Comprehensive metabolic panel (03/17/2021 7:50 AM CDT) Sodium 137 135 - 145 mmol/L [facility] Comment:Testing performed by : [facility], [address] [place] [phone] Potassium, pl 3.4 3.3 - 4.9 mmol/L [facility] Comment:Testing performed by : [facility], [address] [place] [phone] Chloride 107 97 - 110 mmol/L [facility] Comment:Testing performed by : [facility], [address] [place] [phone] CO2 21(L) 22 - 32 mmol/L [facility] Comment:Testing performed by : [facility], [address] [place] [phone] Anion gap 10 2 - 15 mmol/L [facility] Comment:Testing performed by : [address] [phone] BUN 10 8 - 25 mg/dL [facility] Comment:Testing performed by : [facility], [address] [place] [phone] Creatinine 0.82 0.60 - 1.10 mg/dL [facility] Comment:Testing performed by : [facility], [address] [place] [phone] Glucose 151 70 - 199 mg/dL [facility] Comment: Interpretive Data Fasting [...] Testing performed by: [facility], [address] [place] [phone] Calcium 9.9 8.5 - 10.3 mg/dL [facility] Comment:Testing performed by : [facility], [address] [place] [phone] Bilirubin, total 0.4 0.1 - 1.2 mg/dL [facility] Comment:Testing performed by : [facility], [address] [place] [phone] Protein, pl 6.6 6.5 - 8.5 g/dL [facility] Comment:Testing performed by : [facility], [address] [place] [phone] Albumin 3.7 3.5 - 5.0 g/dL [facility] Comment:Testing performed by : [facility], [address] [place] [phone] Alk phos 165(H) 40 - 130 Units/L [facility] Comment:Testing performed by : [facility], [address] [place] [phone] ALT 28 7 - 45 Units/L [facility] Comment:Testing performed by : [facility], [address] [place] [phone] AST 36 10 - 45 Units/L [facility] Comment:Testing performed by : [facility], [address] [place] [phone] Blood 03/17/2021 7:50 AM CDT 03/17/2021 7:56 AM CDT us Eren Cr MD LAB BLOOD ORDERABLES Final Re sult [facility] One [facility] [place] [address] * (ABNORMAL) CBC with auto differential (03/17/2021 7:50 AM CDT) WBC 2.9(L) 3.8 - 9.8 K/cumm [facility] Comment:Testing performed by : [facility], [address] [place] [address] Hgb 11.3(L) 12.1 - 15.1 g/dL [facility] Comment:Testing performed by : [place] [address] Hct 33.0(L) 36.1 - 44.3 % [facility] Comment:Testing performed by : [place] [address] Plt 95(L) 140 - 440 K/cumm [facility] Comment:Testing performed by : [place] [address] MPV 8.1 6.8 - 10.4 fL [facility] Comment:Testing performed by : [place] [address] RBC 3.89(L) 3.90 - 5.00 M/cumm [facility] Comment:Testing performed by : [place] [phone] MCV 84.9 80.0 - 97.6 fL [facility] Comment:Testing performed by : [place] [phone] MCH 29.0 26.7 - 33.7 pg [facility] Comment:Testing performed by : [place] [phone] MCHC 34.2 32.7 - 35.5 g/dL [facility] Comment:Testing performed by : [place] [phone] RDW CV 13.9 11.8 - 14.6 % [facility] Comment:Testing performed by : [place] [phone] NRBC abs 0.00 0.00 - 0.01 K/cumm [facility] Comment:Testing performed by : [facility], [address] [place], [place] [phone] Blood 03/17/2021 7:50 AM CDT 03/17/2021 7:56 AM CDT Eren Cr MD LAB BLOOD ORDERABLES Final Re sult [facility] [place] [address] documented in this encounter Visit Diagnoses Diagnosis Neuro-endocrine carcinoma (HCC)- Primary Other malignant neoplasm of unspecified site documented in this encounter Orders Appointment Requests Count Last Ordered Date Fi rst Ordered Date ONCBCN INFUSION APPT REQUEST 1 03/17/2021 ONCBCN LAB APPOINTMENT 1 03/17/2021 documented in this encounter Care Teams Drilling Plant Operator Relationship Specialty Start Date End Date Julio César Briseno MD PCP - General 10/01/16 Eren Cr MD Referring Physician Medical Oncology 11/25/18 Yohana Bowen MD Radiation Oncologist Radiation Oncology 11/25/18 Sabrina Willard NP [address] [place] [address] Nurse Practitioner Medical Oncology 08/17/20 11/26/21 documented as of this encounter
--- OUTSIDE RECORDS SUMMARY | 2024-06-25 22:27 | XMS_ITS | Encounter Summary ---
Author Organization [facility] Address [address] [place] [address] Phone Care Team Providers Care Photography Editor Name Role Phone Julio César Briseno MD Primary Care Provider Eren Cr MD Unavailable Yohana Bowen MD Unavailable Sabrina Willard NP Unavailable Encounter Details Date Type Department Care Team (Late st Contact Info) Description 02/27/2021 Orders Only [facility] Oncology [address] [facility] 7th [place] [address] [place] [id number] Eren Cr MD [address] [facility] [address] [place] [address] Malignant neoplasm metastatic to liver (CMS/HCC) (HCC) [...] on file 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 Triglycerides 195(H) <=149 mg/dL [facility] Comment: Interpretive Data [...] revised on 2018. HDL 73 >=40 mg/dL [facility] Comment: Interpretive Data Ages < [...] on 2018. LDL, calculated 88 <=129 mg/dL [facility] Comment: Interpretive Data Ages < or [...] revised on 2018. Non-HDL Cholesterol 127 mg/dL [facility] Comment: Interpretive Data Ages < [...] on 2018. Chol/HDL ratio 3 [facility] Blood 03/27/2021 2:25 PM CDT 03/27/2021 2:54 PM CDT us Eren Cr MD LAB BLOOD ORDERABLES Final Re sult [facility] Department [place] [address] documented in this encounter Visit Diagnoses Diagnosis Malignant neoplasm metastatic to liver (HCC)- Primary Neuroendocrine carcinoma (HCC) Other malignant neoplasm of unspecified site documented in this encounter Care Teams Photography Editor Relationship Specialty Start Date End Date Julio César Briseno MD PCP - General 10/01/16 Eren Cr MD Referring Physician Medical Oncology 11/25/18 Yohana Bowen MD Radiation Oncologist Radiation Oncology 11/25/18 Sabrina Willard NP [address] [place] [address] Nurse Practitioner Medical Oncology 08/17/20 11/26/21 documented as of this encounter
--- OUTSIDE RECORDS SUMMARY | 2024-06-25 22:27 | XMS_ITS | Encounter Summary ---
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) Procedures CT chest with contrast Eren Cr MD [address] [place] [address] Phone: tel: fax: [address] [address] Referral ID Status Reason Start Date Expiration Date Visits Re quested Visits Authorized [id number] Closed 02/27/2021 03/29/2022 1 1 Reason for Visit * MRI/CAT/PET Scan (Routine) - Closed Specialty Diagnoses / Procedures [facility] Referred To Contact Radiology Diagnoses Neuroendocrine carcinoma (HCC) Malignant neoplasm metastatic to liver (HCC) Procedures CT chest with contrast Eren Cr MD [address] [facility] [address] [place] [address] Phone: tel: fax: [facility] [address] [facility] [place] [address] Referral ID Status Reason Start Date Expiration Date Visits Re quested Visits Authorized [id number] Closed 02/27/2021 03/29/2022 1 1 Encounter Details Date Type Department Care Team (Latest Contact Info) Description 03/23/2021 2:18 PM CDT Hospital Encounter [facility] [address] [place] [id number] Eren Cr MD [address] [facility] [address] [place], [place] [id number] Neuroendocrine carcinoma (CMS/HCC) (HCC); Malignant neoplasm metastatic [...] file 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 Gender Identity Not on file [...] capsuleIndications :supplement Take 1 tablet by mouth watch hairspring assembler before breakfast 07/04/2016 4 cholecalciferol (VITAMIN D-3) 2,000 unit capsule Take 1 capsule (2,000 Units total) by mouth daily 30 capsule 2 04/25/2019 3 cholestyramine (QUESTRAN) 4 gram packet Take 1 packet by mouth 3 (three) times a day with meals 270 packet 3 09/04/2019 2 clotrimazole-betam ethasone (LOTRISONE) cream Apply 1 Application topically daily as needed (rash) 4 coenzyme [id number] E 100-5 mg-unit capsuleIndications :supplement Take 1 tablet by mouth watch hairspring assembler before breakfast 4 denosumab (XGEVA) 120 mg/1.7 [...] Schedule Routine, Read Routine (OP Routine) 03/23/2021 7:01 PM CDT 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) POCT CREATININE - DEVICE Routine 03/23/2021 5:17 PM CDT documented in this encounter Results * CT chest with contrast (03/23/2021 7:01 [...] it. Electronically signed by: Jasbir Jacob M.D. Eren Cr MD IMG CT PROCEDURES Final Resul t * POCT creatinine (03/23/2021 5:17 PM CDT) Creatinine POC 1.0 0.6 - 1.1 mg/dL [facility] Blood 03/23/2021 5:17 PM CDT 03/23/2021 5:17 PM CDT Eren Cr MD LAB POCT ORDERABLES - DEVICE Final Result [facility] Department [place] [address] documented in this encounter Visit Diagnoses Diagnosis [...] imaging, contrast, Starting on Lydia 03/23/21 at 1901, For 1 dose Contrast Given 03/23/2021 7:01 PM CDT 100 mL documented in this encounter Orders Medications Ordered That Brett ht Not Have Been Administered Count Last Ordered Date First Ordered Date ioversoL (OPTIRAY 350) syrin ge syringe 100 mL 1 03/23/2021 documented in this encounter Care Teams Manager Clinical Relationship Specialty Start Date End Date Julio César Briseno MD PCP - General 10/01/16 Eren Cr MD Referring Physician Medical Oncology 11/25/18 Yohana Bowen MD Radiation Oncologist Radiation Oncology 11/25/18 Sabrina Willard NP [address] [place] [address] Nurse Practitioner Medical Oncology 08/17/20 11/26/21 documented as of this encounter
--- OUTSIDE RECORDS SUMMARY | 2024-06-25 22:28 | XMS_ITS | Encounter Summary ---
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) Procedures CA DENOSUMAB INJECTION DENOSUMAB (XGEVA) Eren Cr MD [address] [place] [address] Phone: tel: fax: [facility] [address] [facility] Advanced Medicine 7th [place] [address] Phone: tel: Referral ID Status Reason Start Date Expiration Date V isits Requested Visits Authorized [id number] Authorized 03/02/2019 10/06/2024 1 60 Encounter Details Date Type Department Care Team (Latest Contact Info) Description 02/13/2021 4:05 PM CDT - 02/13/2021 11:59 PM CDT Hospital Encounter [facility] Advanced Medicine ([facility]) [address] [place] [address] Eren Cr MD [address] [facility] [address] [place] [address] Bone metastasis (CMS/HCC) (HCC) (Primary Dx); Neuro-endocrine carcinoma (CMS/HCC) (HCC); Neuroendocrine carcinoma (CMS/HCC) (HCC); Malignant neoplasm metastatic to liver (CMS/HCC) (HCC); Hypercalcemia Discharge Disposition: Discharge to home or self care Social History Tobacco Use Types Packs/Day Years Used Date Smoking Tobacco: Never Smokeless Tobacco: Never Alcohol Use Standard Drinks/Week Comments Yes 1 (1 standard drink = 0.6 oz pur e alcohol) Comments No Sex and Gender Information Value Date Recorded Sex Assigned at Not on file 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 Gender Identity Not on file Sexual Orientation Straight 02/19/2021 9: 29 AM CDT Occupation Industry Job Start Date Job End Date retired Not on file Not on file Not on file documented as of this encounter Last Filed Vital Signs Vital Sign Reading Time Taken Comments Blood Pressure 157/74 02/13/2021 6:31 PM CDT Pulse 72 02/13/2021 6:31 PM CDT Temperature 37.1 ??C (98.7 ??F) 02/13/2021 4:16 PM CD T Respiratory Rate 16 02/13/2021 6:31 PM CDT Oxygen Saturation 100% 02/13/2021 6:31 PM CDT Inhaled Oxygen Concentration - - Weight - - Height - - Body Mass Index - - documented in this encounter Discharge Diagnoses Diagnosis Other malignant neuroendocrine tumors (HCC) - OTHER MALIGNANT NEUROENDOCRINE TUMORS 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 07/04/2016 4 cholecalciferol (VITAMIN D-3) 2,000 unit capsule Take 1 capsule (2,000 Units total) by mouth daily 30 capsule 2 04/25/2019 3 cholestyramine (QUESTRAN) 4 gram packet Take 1 packet by mouth 3 (three) times a day with meals 270 packet 3 09/04/2019 2 clotrimazole-betam ethasone (LOTRISONE) cream Apply 1 Application topically daily as needed (rash) 4 coenzyme G78-[id number] E 100-5 mg-unit capsuleIndications :supplement Take 1 tablet by mouth special education teacher before breakfast 4 denosumab (XGEVA) 120 mg/1.7 mL (70 mg/mL) injection Inject under the skin every 30 (thirty) days 2 diphenoxylate-atro pine (LOMOTIL) 2.5-0.025 mg per tabletIndications: Chemotherapy-Induc ed Diarrhea Take 1 tablet by mouth 4 (four) times a day as needed for diarrhea 90 tablet 02/13/[address] (CYMBALTA) 30 mg capsule Take [...] Nursing Notes * Lynsey Renee RN - 02/13/2021 5:00 PM CDT Patient arrived to [facility] for IVF. Plan of care reviewed with patient and she verbalized understanding. PIV started and IVF given. Patient tolerated IVF well. PIV removed. AVS given to patient and she verbalized understanding of d/c plan of care. 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) Hypercalcemia documented in this encounter Administered Medications Inactive Administered Medications - up to 3 most recent administrations Medication Order MAR Action Action Date Dose Rate Site sodium chloride 0.9% bolus 1,000 mL 1,000 mL, intravenous, at 500 mL/hr, Administer over 2 Hours, Once, On Sat02/13/21 at 1650, For 1 doseIndications:Bone metastasis,Neuro-endocrine carcinoma (HCC) New Bag 02/13/2021 4:30 PM CDT 1,000 mL 500 mL/hr documented in this encounter Orders Medications Ordered That Brett ht Not Have Been Administered Count Last Ordered Date First Ordered Date sodium chloride 0.9% bolus 1,000 mL 1 02/13 Appointment Requests Count Last Ordered Date Fi rst Ordered Date ONCBCN INFUSION APPT REQUEST 1 02/13/2021 documented in this encounter Care Teams Associate Professor Of Kinesiology Relationship Specialty Start Date End Date Julio César Briseno MD PCP - General 10/01/16 Eren Cr MD Referring Physician Medical Oncology 11/25/18 Yohana Bowen MD Radiation Oncologist Radiation Oncology 11/25/18 Sabrina Willard NP [address] [place] [address] Nurse Practitioner Medical Oncology 08/17/20 11/26/21 documented as of this encounter
--- OUTSIDE RECORDS SUMMARY | 2024-06-25 22:28 | XMS_ITS | Encounter Summary ---
Author Organization [facility] Address [address] [place] [address] Phone Care Team Providers Care Litigation Claim Representative Name Role Phone Julio César Briseno MD Primary Care Provider [phone] Eren Cr MD Unavailable [phone] Yohana Bowen MD Unavailable Sabrina Willard NP Unavailable [phone] 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) Procedures IN OCTREOTIDE INJECTION, DEPOT Octreotide 28 Day Cycles - Carcinoid Eren Cr MD [address] [facility] [address] [place] [address] Phone: tel: fax: [facility] [address] [address] Phone: tel: fax: Referral ID Status Reason Start Date Expiration Date V isits Requested Visits Authorized [id number] Authorized 11/28/2017 02/05/2025 1 150 Encounter Details Date Type Department Care Team (Late st Contact Info) Description 01/30/2021 3:30 PM CDT Infusion [facility] [address] [facility] 7th [place] [address] Neuroendocrine carcinoma (CMS/HCC) (HCC) (Primary Dx); Malignant [...] on file 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 female who presents for IVF and injections. Pre-treatment Nursing Assessment Nursing Assessment Appetite:: Fair Diarrhea:: Yes (taking immodium) Constipation:: No Existing Patients: Any falls since your last visit? : No Fatigue:: Constant Mouth Sores:: No Nausea/Vomiting:: No Pain:: No Peripheral Neuropathy: : No Shortness of Breath?: Yes Respiratory Effort Characteristics: Dyspnea exertion Skin Condition/Temp: Warm, Dry Swelling:: No BP: 110/59 Temp: 36.4 ??C (97.5 ??F) Temp src: Transdermal Pulse: 89 Resp: 18 SpO2: 97 % Weight: 82.4 kg (181 lb 9.6 oz) Pain Score: 0 - No pain Treatment Patient: met treatment parameters Pre blood return: Rosemaryisk La Chung tolerated IVF and injections well. Patient instructed by MD to hold afinitor until after lab check next Saturday, patient verbalized understanding. Post blood return: Brisk IV access post [...] 120 mg 120 mg, subcutaneous, Once, On Sat01/30/21 at 1730, For 1 dose, Calcium level should be greater than 8 mg/dl Administer injection in upper arm, abdomen or upper thigh Refrigerate. Allow to stand 15 to 30 mins prior to useIndications:Bone metastasis,Neuro-endocr ine carcinoma (HCC) Given 01/30/2021 5:46 PM CDT 120 mg Right Upper Abdomen octreotide LAR (SandoSTATIN LAR) extended release intramuscular injection 30 mg 30 mg, intramuscular, Once, On Sat01/30/21 at 1730, For 1 dose, Refrigerate. For IM intragluteal administration only- alternate gluteal sites. Shake.Indications:Malig nant neoplasm metastatic to liver (HCC),Neuroendocrine carcinoma (HCC) Given 01/30/2021 5:46 PM CDT 30 mg Right Dorsogluteal/But tock sodium chloride 0.9% bolus 1,000 mL 1,000 mL, intravenous, at 1,000 mL/hr, Administer over 1 Hours, Once, On Sat01/30/21 at 1730, For 1 doseIndications:Maligna nt neoplasm metastatic to liver (HCC),Neuroendocrine carcinoma (HCC) New Bag 01/30/2021 4:55 PM CDT 1,000 mL 1000 mL/hr documented in this encounter Orders Nursing Count Last Ordered Date First Orde red Date ONCBCN NURSING COMMUNICATION [id number] 1 01/30 ONCBCN NURSING COMMUNICATION [id number] 1 0 01/30/2021 PHYSICIAN COMMUNICATION ORDER 1 01/30/2021 Appointment Requests Count Last Ordered Date Fi rst Ordered Date ONCBCN INJECTION APPOINTMENT REQUEST 01/06 documented in this encounter Care Teams Litigation Claim Representative Relationship Specialty Start Date End Date Julio César Briseno MD PCP - General 10/01/16 Eren Cr MD Referring Physician Medical Oncology 11/25/18 Yohana Bowen MD Radiation Oncologist Radiation Oncology 11/25/18 Sabrina Willard NP [address] [place] [address] Nurse Practitioner Medical Oncology 08/17/20 11/26/21 documented as of this encounter
--- OUTSIDE RECORDS SUMMARY | 2024-06-25 22:28 | XMS_ITS | Encounter Summary ---
Author Organization [facility] Address [address] [place] [address] Phone Care Team Providers Care Out Of School Hours Care Worker Name Role Phone Julio César Briseno MD Primary Care Provider [phone] Eren Cr MD Unavailable Yohana Bowen MD Unavailable Sabrina Willard NP Unavailable [phone] Reason for Referral * Consultation (Routine) - Closed Specialty Diagnoses / Procedures Referred By Contellen bowman Referred To Contact Physical Therapy Diagnoses Closed displaced fracture of head of right radius with routine healing, subsequent encounter Lu Garcia MD Phone: tel: [facility] [place] [address] [place] [address] Phone: tel: fax: Referral ID Status Reason Start Date Expiration Date V isits Requested Visits Authorized [id number] Closed Specialty Services Required 01/04/2021 02/03/2022 12 12 Question Answer PTRFR PT Evaluate and Treat Therapy options discussed with patient? Yes Location provided for therapy services is: Patient requested/Patient preferred Please select the performing region: External Order [[id number]] To loc/pos [facility] [place] [[id number]] Comments Please see patient twice a week for six weeks. Active and passive elbow range of motion without limits. Please work on shoulder and wrist gentle range of motion, stretching, and strengthening also. Full supination and pronation. Advance to WBAT. * Diagnostic Imaging (Routine) - Closed Specialty Diagnoses / Procedures Referred By Contac t Referred To Contact Diagnoses Closed displaced fracture of head of right radius with routine healing, subsequent encounter Procedures XR Elbow Right 2 Views Lu Garcia MD Phone: tel: [facility] Referral ID Status Reason Start Date Expiration Date Visits Re quested Visits Authorized [id number] Closed 12/29/2020 01/28/2022 1 1 Reason for Visit * Reason Comments Follow-up Fracture Encounter Details Date Type Department Care Team (Late st Contact Info) Description 01/04/2021 12:30 PM CDT Office Visit [facility] Orthopaedic Surgery [address] [facility] 6th [place] [address] [place] [address] Lu Garcia MD [address] [facility] [address] [place] [address] Closed displaced fracture of head of right radius with routine healing, subsequent encounter (Primary Dx) Social History Tobacco Use Types Packs/Day Years Used Date Smoking Tobacco: Never Smokeless Tobacco: Never Alcohol Use Standard Drinks/Week Comments Yes 1 (1 standard drink = 0.6 oz pur e alcohol) Comments No Sex and Gender Information Value Date Recorded Sex Assigned at Not on file 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 Pain: mild. Objective: Well-developed, well-nourished, in no acute distress. Alert and oriented x 3. Normal respirations, no dyspnea with speaking. The injured extremity shows: normal stability, strength, sensation Imaging Radial head fracture healing well in unchanged alignment from prior. I independently reviewed and interpreted this xray and the patient's prior xrays. Assessment: Ms. Chung is a 70 y.o. female who sustained a right side radial head fracture with nonoperative management on 11/20/2020. Plan: 1) Continue WBAT. 2) Return to clinic in 2 months with repeat radiographs (AP/lateral elbow). 3) Pt no longer taking narcotic pain medication, continue tylenol as needed. 4) DVT prophylaxis discontinued. 5) Call with any questions. 6) Work status: light duty present during discussion and examination. documented in this encounter Plan of Treatment Scheduled Referrals Name Type Priority Associated Diagnoses Order Schedule Ambulatory referral order to Physical Therapy - Outpatient Referral Routine Closed displaced fracture of head of right radius with routine healing, subsequent encounter Ordered: 01/04/2021 documented as of this encounter Results * XR Elbow Right 2 Views (01/04/2021 12:41 PM CDT) Anatomical Region Laterality Modality Upper Extremities, Elbow Right Compute d Radiography 01/04/2021 12:4 6 PM CDT Impressions 01/04/2021 12:46 PM CDT Unchanged comminuted minimally displaced intra-articular right radial head and neck fracture. Electronically signed by: Eddy Ken M.D. Narrative 01/04/2021 12:46 PM CDT EXAMINATION: XR ELBOW RIGHT 2 VIEWS HISTORY: Right radius fracture, follow-up FINDINGS: 2 views of the right elbow are submitted for interpretation with comparison made to radiographs dated 11/30/2020. There is a comminuted intra-articular minimally displaced right radial head and neck fracture. There is a small right elbow joint effusion. Remaining joint spaces are normal. Mild olecranon bursitis. Procedure Note Eddy Ken MD - 01/04/2021 EXAMINATION: XR ELBOW RIGHT 2 VIEWS HISTORY: Right radius fracture, follow-up FINDINGS: 2 views of the right elbow are submitted for interpretation with comparison made to radiographs dated 11/30/2020. There is a comminuted intra-articular minimally displaced right radial head and neck fracture. There is a small right elbow joint effusion. Remaining joint spaces are normal. Mild olecranon bursitis. IMPRESSION: Unchanged comminuted minimally displaced intra-articular right radial head and neck fracture. Electronically signed by: Eddy Ken M.D. 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 loperamide HCl (IMODIUM A-D ORAL)Indications: diarrhea Take 1 tablet by mouth daily as needed (diarrhea) Patient takes 6-8 tablets a day. 11/23/2020 HYDROcodone-aceta minophen (NORCO) 5-325 mg per tablet 11/20/2020 05/22/2021 added in this encounter Care Teams Out Of School Hours Care Worker Relationship Specialty Start Date End Date Julio César Briseno MD PCP - General 10/01/16 Eren Cr MD Referring Physician Medical Oncology 11/25/18 Yohana Bowen MD Radiation Oncologist Radiation Oncology 11/25/18 Sabrina Willard NP [address] [facility] [address] [place] [address] Nurse Practitioner Medical Oncology 08/17/20 11/26/21 documented as of this encounter
--- OUTSIDE RECORDS SUMMARY | 2024-06-25 22:28 | XMS_ITS | Encounter Summary ---
Author Organization [facility] Address [address] [place] [address] Phone Care Team Providers Care Fruit And Vegetable Inspector Name Role Phone Julio César Briseno MD Primary Care Provider Eren Cr MD Unavailable [phone] Yohana Bowen MD Unavailable Sabrina Willard NP Unavailable [phone] Encounter Details Date Type Department Care Team (Late st Contact Info) Description 01/11/2021 Documentation [facility] Oncology [address] [facility] 7th [place] [address] [place] [address] Shavonne Lee LCSW Social History Tobacco Use Types Packs/Day Years Used Date Smoking Tobacco: Never Smokeless Tobacco: Never Alcohol Use Standard Drinks/Week Comments Yes 1 (1 standard drink = 0.6 oz pur e alcohol) Comments No Sex and Gender Information Value Date Recorded Sex Assigned at Not on file 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 Social work spoke with dry pan charger to discuss assistance for the medication Afinitor (Novartis). Application for assistance is pending with the dry pan charger. Social Work will continue to follow to assist with this issue. Contact Information: LILI Shavonne ORDOÑEZ LCSW documented in this encounter Plan of Treatment Not on file documented as of this encounter Visit Diagnoses Not on filedocumented in this encounter Care Teams Fruit And Vegetable Inspector Relationship Specialty Start Date End Date Julio César Briseno MD PCP - General 10/01/16 Eren Cr MD Referring Physician Medical Oncology 11/25/18 Yohana Bowen MD Radiation Oncologist Radiation Oncology 11/25/18 Sabrina Willard NP [address] [place] [address] Nurse Practitioner Medical Oncology 08/17/20 11/26/21 documented as of this encounter
--- OUTSIDE RECORDS SUMMARY | 2024-06-25 22:28 | XMS_ITS | Encounter Summary ---
Author Organization [facility] Address [address] [place] [address] Phone Care Team Providers Care Talent Buyer Name Role Phone Julio César Briseno MD Primary Care Provider Eren Cr MD Unavailable [phone] Yohana Bowen MD Unavailable Sabrina Willard NP Unavailable [phone] Encounter Details Date Type Department Care Team (Late st Contact Info) Description 01/11/2021 Documentation [facility] Oncology [address] [facility] Medicine 7th [place] [address] [place] [address] Shavonne Lee LCSW Social History Tobacco Use Types Packs/Day Years Used Date Smoking Tobacco: Never Smokeless Tobacco: Never Alcohol Use Standard Drinks/Week Comments Yes 1 (1 standard drink = 0.6 oz pur e alcohol) Comments No Sex and Gender Information Value Date Recorded Sex Assigned at Not on file Legal Sex Female 2:41 PM ALIGNING CHECKER Gender Identity Not on file Sexual Orientation Straight 02/19/2021 9: 29 AM CDT Occupation Industry Job Start Date Job End Date retired Not on file Not on file Not on file documented as of this encounter Progress Notes * Shavonne Lee LCSW - 01/11/2021 11:47 AM CDT [facility] Community Living Specialist Brief Intervention Social Work Follow-Up Note: Medication Assistance Patient is unable to afford the co-pay for this medication. Social work spoke with patient to discuss assistance for the medication Afinitor (Novartis). Patient has been approved to receive free medication from the front sight attacher. Dates of approval are: 01/11/2021-07/07/2021. For refills, patient can call [phone]. Contact Information: LILI Shavonne ORDOÑEZ PAPER HANGER documented in this encounter Plan of Treatment Not on file documented as of this encounter Visit Diagnoses Not on filedocumented in this encounter Care Teams Talent Buyer Relationship Specialty Start Date End Date Julio César Briseno MD PCP - General 10/01/16 Eren Cr MD Referring Physician Medical Oncology 11/25/18 Yohana Bowen MD Radiation Oncologist Radiation Oncology 11/25/18 Sabrina Willard NP [address] [place] [address] Nurse Practitioner Medical Oncology 08/17/20 11/26/21 documented as of this encounter
--- OUTSIDE RECORDS SUMMARY | 2024-06-25 22:28 | XMS_ITS | Encounter Summary ---
Author Organization [facility] Address [address] [place] [address] Phone Care Team Providers Care Rough Rice Tender Name Role Phone Julio César Briseno MD Primary Care Provider Eren Cr MD Unavailable [phone] Yohana Bowen MD Unavailable Sabrina Willard NP Unavailable [phone] Encounter Details Date Type Department Care Team (Late st Contact Info) Description 01/04/2021 Documentation [facility] Orthopaedic Surgery [address] [facility] Advanced Medicine 6th [place] [address] [place] [address] Lu Garcia MD [address] [place] [address] Social History Tobacco Use Types Packs/Day Years Used Date Smoking Tobacco: Never Smokeless Tobacco: Never Alcohol Use Standard Drinks/Week Comments Yes 1 (1 standard drink = 0.6 oz pur e alcohol) Comments No Sex and Gender Information Value Date Recorded Sex Assigned at Not on file Legal Sex Female 2:41 PM FINISHER MAP AND CHART Gender Identity Not on file Sexual Orientation Straight 02/19/2021 9: 29 AM CDT Occupation Industry Job Start Date Job End Date retired Not on file Not on file Not on file documented as of this encounter Progress Notes * Lu Garcai MD - 01/04/2021 1:00 PM CDT Entered in error. documented in this encounter Plan of Treatment Not on file documented as of this encounter Visit Diagnoses Not on filedocumented in this encounter Care Teams Rough Rice Tender Relationship Specialty Start Date End Date Julio César Briseno MD PCP - General 10/01/16 Eren Cr MD Referring Physician Medical Oncology 11/25/18 Yohana Bowen MD Radiation Oncologist Radiation Oncology 11/25/18 Sabrina Willard NP [address] [place] [address] Nurse Practitioner Medical Oncology 08/17/20 11/26/21 documented as of this encounter
--- OUTSIDE RECORDS SUMMARY | 2024-06-25 22:28 | XMS_ITS | Encounter Summary ---
Author Organization [facility] Address [address] [place] [address] Phone Care Team Providers Care Recreation Therapy Aide Name Role Phone Julio César Briseno MD Primary Care Provider Eren Cr MD Unavailable Yohana Bowen MD Unavailable Sabrina Willard NP Unavailable [phone] Reason for Visit * Reason Onset Date Comments Lab Results 02/06/2021 Encounter Details Date Type Department Care Team (Late st Contact Info) Description 02/06/[address] [facility] Oncology [address] [facility] 7th [place] [address] [place] [address] Eren rC MD [address] [facility] [address] [place], [place] [id number] Lab Results Social History Tobacco Use Types Packs/Day Years Used Date Smoking Tobacco: Never Smokeless Tobacco: Never Alcohol Use Standard Drinks/Week Comments Yes 1 (1 standard drink = 0.6 oz pur e alcohol) Comments No Sex and Gender Information Value Date Recorded Sex Assigned at Not on file Legal Sex Female 2:41 PM RN BUILDING Gender Identity Not on file Sexual Orientation Straight 02/19/2021 9: 29 AM CDT Occupation Industry Job Start Date Job End Date retired Not on file Not on file Not on file documented as of this encounter Miscellaneous Notes * Telephone Encounter - Sola Heredia - 02/06/2021 3:44 PM CDT Patient had repeat CMP done today and WNL. Results reviewed with Joanie Willard NP and patient okay to resume Afinitor 10 mg every other day. Spoke to patient and she states she is feeling well, continues to have looser stools, describes and applesauce consistency. Patient does not want to get Lomotil prescription just yet, she will let me know. Patent will start Afinitor again every other day and she will follow up with us as scheduled in clinic next week. She knows to call or message in the interim for any problems, questions, or concerns. documented in this encounter Plan of Treatment Not on file documented as of this encounter Visit Diagnoses Not on filedocumented in this encounter Care Teams Recreation Therapy Aide Relationship Specialty Start Date End Date Julio César Briseno MD PCP - General 10/01/16 Eren Cr MD Referring Physician Medical Oncology 11/25/18 Yohana Bowen MD Radiation Oncologist Radiation Oncology 11/25/18 Sabrina Willard NP [address] [place] [address] Nurse Practitioner Medical Oncology 08/17/20 11/26/21 documented as of this encounter
--- OUTSIDE RECORDS SUMMARY | 2024-06-25 22:28 | XMS_ITS | Encounter Summary ---
Author Organization [facility] Address [address] [place] [address] Phone Care Team Providers Care Cement Sack Breaker Name Role Phone Julio César Briseno MD Primary Care Provider Eren Cr MD Unavailable [phone] Yohana Bowen MD Unavailable Sabrina Willard NP Unavailable [phone] Encounter Details Date Type Department Care Team (Late st Contact Info) Description 02/13/2021 1:30 PM CDT Lab [facility] Oncology [address] [facility] Advanced Medicine 7th [place] [address] [place] [address] Neuroendocrine carcinoma (CMS/HCC) (HCC); Malignant neoplasm metastatic [...] on file Legal Sex Female 2:41 PM YOKER Gender Identity Not on file Sexual Orientation Straight 02/19/2021 9: 29 AM CDT Occupation Industry Job Start Date Job End Date retired Not on file Not on file Not on file documented as of this encounter Plan of Treatment Not on file documented as of this encounter Procedures Procedure Name Priority Date/Time Associated Diagnosis Comments EGFR Routine 02/13/2021 1:13 PM CDT 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) Bone metastasis (CMS/HCC) (HCC) DIFFERENTIAL AUTO Routine 02/13/2021 1:1 3 PM CDT 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) Bone metastasis (CMS/HCC) (HCC) CBC WITH AUTO DIFFERENTIAL Routine 02/13/2021 1:13 PM CDT 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) Bone metastasis (CMS/HCC) (HCC) COMPREHENSIVE METABOLIC PANEL Routine 02/13/2021 1:13 PM CDT 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) Bone metastasis (CMS/HCC) (HCC) documented in this encounter Results * (ABNORMAL) eGFR (02/13/2021 1:13 PM CDT) eGFR 68(L) 90 - 130 mL/min/1.7 3 m2 [facility] Comment: Interpretive Data Reference Interval [...] was last reviewed 2020 Testing performed by: [facility], [address] [place] [phone] Blood specimen (specimen) 02/13/2021 1:13 PM CDT 02/13/2021 1:15 PM CDT us Eren Cr MD LAB BLOOD ORDERABLES Final Re sult [facility] Department [place] [address] * (ABNORMAL) Differential, auto (02/13/2021 1:13 PM CDT) Neutrophil abs 2.7 1.8 - 6.6 K/cumm [facility] Comment:Testing performed by : [facility], [address] [place] [phone] Lymphocyte abs 0.4(L) 1.2 - 3.3 K/cumm [facility] Comment:Testing performed by : [facility], [address] [place] [phone] Monocyte abs 0.8 0.2 - 1.2 K/cumm [facility] Comment:Testing performed by : [facility], [address] [place] [phone] Eosinophil abs 0.1 0.0 - 0.5 K/cumm [facility] Comment:Testing performed by : [facility], [address] [place] [address] Basophil abs 0.0 0.0 - 0.2 K/cumm [facility] Comment:Testing performed by : [facility], [address] [place] [phone] Neutrophil pct 67.9 % [facility] Comment: Interpretive Data Percent cell count reference ranges are not reported, since discordance with absolute values may lead to misinterpretation of CBC data. Current Interpretive Data was last revised on 2017. Testing performed by: [facility], [address] [place] [phone] Lymphocyte pct 9.7 % [facility] Comment: Interpretive Data Percent cell count reference ranges are not reported, since discordance with absolute values may lead to misinterpretation of CBC data. Current Interpretive Data was last revised on 2017. Testing performed by: [facility], [address] [place] [phone] Monocyte pct 19.1 % [facility] Comment:Testing performed by : [facility], [address] [place] [address] Eosinophil pct 2.8 % [facility] Comment:Testing performed by : [facility], [address] [place] [phone] Basophil pct 0.5 % [facility] Comment:Testing performed by : [facility], [address] [place] [phone] Blood specimen (specimen) 02/13/2021 1:13 PM CDT 02/13/2021 1:15 PM CDT Eren Cr MD LAB BLOOD ORDERABLES Final Re sult [facility] Department [place] [address] * (ABNORMAL) CBC with auto differential (02/13/2021 1:13 PM CDT) WBC 4.0 3.8 - 9.8 K/cumm [facility] Comment:Testing performed by : [facility], [address] [place] [phone] Hgb 12.2 12.1 - 15.1 g/dL [facility] Comment:Testing performed by : [facility], [address] [place] [address] Hct 34.7(L) 36.1 - 44.3 % [facility] Comment:Testing performed by : [facility], [address] [place] [address] Plt 121(L) 140 - 440 K/cumm [facility] Comment:Testing performed by : [facility], [address] [place] [address] MPV 7.9 6.8 - 10.4 fL [facility] Comment:Testing performed by : [place] [address] RBC 3.91 3.90 - 5.00 M/cumm [facility] Comment:Testing performed by : [place] [address] MCV 88.6 80.0 - 97.6 fL [facility] Comment:Testing performed by : [facility], [address] [place] [address] MCH 31.3 26.7 - 33.7 pg [facility] Comment:Testing performed by : [place] [address] MCHC 35.3 32.7 - 35.5 g/dL [facility] Comment:Testing performed by : [place] [address] RDW CV 13.0 11.8 - 14.6 % [facility] Comment:Testing performed by : [place] [id number] NRBC abs 0.00 0.00 - 0.01 K/cumm [facility] Comment:Testing performed by : [place] [id number] Blood specimen (specimen) 02/13/2021 1:13 PM CDT 02/13/2021 1:15 PM CDT Eren Cr MD LAB BLOOD ORDERABLES Final Re sult [facility] Department [place] [address] * (ABNORMAL) Comprehensive metabolic panel (02/13/2021 1:13 PM CDT) Sodium 139 135 - 145 mmol/L [facility] Comment:Testing performed by : [facility], [address] [place] [phone] Potassium, pl 4.0 3.3 - 4.9 mmol/L [facility] Comment:Testing performed by : [facility], [address] [place] [phone] Chloride 102 97 - 110 mmol/L [facility] Comment:Testing performed by : [facility], [address] [place] [phone] CO2 31 22 - 32 mmol/L [facility] Comment:Testing performed by : [facility], [address] [place] [phone] Anion gap 6 2 - 15 mmol/L [facility] Comment:Testing performed by : [facility], [address] [place] [phone] BUN 13 8 - 25 mg/dL [facility] Comment:Testing performed by : [facility], [address] [place] [phone] Creatinine 0.85 0.60 - 1.10 mg/dL [facility] Comment:Testing performed by : [facility], [address] [place] [phone] Glucose 134 70 - 199 mg/dL [facility] Comment: Interpretive Data Fasting glucose [...] was last revised 2017. Testing performed by: [facility], [address] [place] [phone] Calcium 11.0(H) 8.5 - 10.3 mg/dL [facility] Comment:Testing performed by : [facility], [address] [place] [phone] Bilirubin, total 0.4 0.1 - 1.2 mg/dL [facility] Comment:Testing performed by : [facility], [address] [place] [phone] Protein, pl 7.2 6.5 - 8.5 g/dL [facility] Comment:Testing performed by : [facility], [address] [place] [phone] Albumin 4.1 3.5 - 5.0 g/dL [facility] Comment:Testing performed by : [facility], [address] [place] [phone] Alk phos 174(H) 40 - 130 Units/L [facility] Comment:Testing performed by : [facility], [address] [place] [phone] ALT 28 7 - 45 Units/L [facility] Comment:Testing performed by : [facility], [address] [place] [phone] AST 36 10 - 45 Units/L [facility] Comment:Testing performed by : [facility], [address] [place] [phone] Blood specimen (specimen) 02/13/2021 1:13 PM CDT 02/13/2021 1:15 PM CDT us Eren Cr MD LAB BLOOD ORDERABLES Final Re sult [facility] Department [place] [address] documented in this encounter Visit Diagnoses Diagnosis Neuroendocrine carcinoma (HCC) Other malignant neoplasm of unspecified site Malignant neoplasm metastatic to liver (HCC) Bone metastasis Secondary malignant neoplasm of bone and bone marrow documented in this encounter Orders Appointment Requests Count Last Ordered Date Fi rst Ordered Date ONCBCN LAB APPOINTMENT 1 02/13/2021 documented in this encounter Care Teams Cement Sack Breaker Relationship Specialty Start Date End Date Julio César Briseno MD PCP - General 10/01/16 Eren Cr MD Referring Physician Medical Oncology 11/25/18 Yohana Bowen MD Radiation Oncologist Radiation Oncology 11/25/18 Sabrina Willard NP [address] [place] [address] Nurse Practitioner Medical Oncology 08/17/20 11/26/21 documented as of this encounter
--- OUTSIDE RECORDS SUMMARY | 2024-06-25 22:28 | XMS_ITS | Encounter Summary ---
Author Organization [facility] Address [address] [place] [address] Phone Care Team Providers Care Boring Machine Operator Horizontal Name Role Phone Julio César Briseno MD Primary Care Provider Eren Cr MD Unavailable [phone] Yohana Bowen MD Unavailable Sabrina Willard NP Unavailable Encounter Details Date Type Department Care Team (Late st Contact Info) Description 02/01/2021 Orders Only [facility] Oncology [address] [facility] Advanced Medicine 7th [place] [address] [place] [phone] Eren Cr MD [address] [facility] [id number] [place] [address] Social History Tobacco Use Types Packs/Day Years Used Date Smoking Tobacco: Never Smokeless Tobacco: Never Alcohol Use Standard Drinks/Week Comments Yes 1 (1 standard drink = 0.6 oz pur e alcohol) Comments No Sex and Gender Information Value Date Recorded Sex Assigned at Not on file Legal Sex Female 2:41 PM QUALITY ASSOCIATE Gender Identity Not on file Sexual Orientation Straight 02/19/2021 9: 29 AM CDT Occupation Industry Job Start Date Job End Date retired Not on file Not on file Not on file documented as of this encounter Plan of Treatment Not on file documented as of this encounter Visit Diagnoses Not on filedocumented in this encounter Care Teams Boring Machine Operator Horizontal Relationship Specialty Start Date End Date Julio César Briseno MD PCP - General 10/01/16 Eren Cr MD Referring Physician Medical Oncology 11/25/18 Yohana Bowen MD Radiation Oncologist Radiation Oncology 11/25/18 Sabrina Willard NP [address] [place] [address] Nurse Practitioner Medical Oncology 08/17/20 11/26/21 documented as of this encounter
--- OUTSIDE RECORDS SUMMARY | 2024-06-25 22:28 | XMS_ITS | Encounter Summary ---
Author Organization [facility] Address [address] [place] [address] Phone Care Team Providers Care Continuous Absorption Process Operator Name Role Phone Julio César Briseno MD Primary Care Provider [phone] Eren Cr MD Unavailable [phone] Yohana Bowen MD Unavailable Sabrina Wilalrd NP Unavailable [phone] Reason for Referral * Diagnostic Imaging (Routine) - Closed Specialty Diagnoses / Procedures Referred By Contac t Referred To Contact Diagnoses Discharge from right nipple Procedures US Breast Right Limited US BREAST COMPLETE BILATERAL Oksana Rivas NP Phone: tel: fax: [facility] Referral ID Status Reason Start Date Expiration Date Visits Re quested Visits Authorized [id number] Closed 01/18/2021 02/17/2022 1 1 * Diagnostic Imaging (Routine) - Closed Specialty Diagnoses / Procedures Referred By Contac t Referred To Contact Diagnoses Discharge from right nipple Procedures Diagnostic Mammogram Bilateral W Seng Diagnostic Mammogram Right W Seng Oksana Rivas NP Phone: tel: fax: [facility] Referral ID Status Reason Start Date Expiration Date Visits Re quested Visits Authorized [id number] Closed 01/18/2021 02/17/2022 1 1 Reason for Visit * Reason Comments Follow-up Encounter Details Date Type Department Care Team (Late st Contact Info) Description 01/18/2021 2:00 PM CDT Office Visit [facility] Ob[facility]etrics [facility]ne[facility] [address] [place] [address] [place] [address] Oksana Rivas NP [address] [id number] Discharge from right nipple (Primary Dx); Neuroendocrine carcinoma (CMS/HCC) (HCC) Social History Tobacco Use Types Packs/Day Years Used Date Smoking Tobacco: Never Smokeless Tobacco: Never Alcohol Use Standard Drinks/Week Comments Yes 1 (1 standard drink = 0.6 oz pur e alcohol) Comments No Sex and Gender Information Value Date Recorded Sex Assigned at Not on file 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 Gender Identity Not on file Sexual Orientation Straight 02/19/2021 9: 29 AM CDT Occupation Industry Job Start Date Job End Date retired Not on file Not on file Not on file documented as of this encounter Last Filed Vital Signs Vital Sign Reading Time Taken Comments Blood Pressure 160/70 01/18/2021 1:49 PM CDT Pulse 84 01/18/2021 1:49 PM CDT Temperature 36.1 ??C (97 ??F) 01/18/2021 1:49 PM CDT Respiratory Rate 16 01/18/2021 1:49 PM CDT Oxygen Saturation 95% 01/18/2021 1:49 PM CDT Inhaled Oxygen Concentration - - Weight 84.3 kg (185 lb 14.4 oz) 01/18/2021 1:49 PM CDT Height 160 cm (5' 3 ) 01/18/2021 1:49 PM CDT Body Mass Index 32.93 01/18/2021 1:49 PM CDT documented in this encounter Progress Notes * Oksana Rivas NP - 01/18/2021 2:00 PM CDT Gynecological Oncology Follow-up Surveillance Patient: La Chung : 1950 Date of Exam: 01/18/2021 HPI: La Chung is a 70 y.o., female who had??a mass in the ??right colon which was symptomatic. She had some discomfort. Dr Reeves removed the mass. 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 She is seeing Dr. Dm Cr for this. On recent Ga-68 DOTATATE-PET/CT imaging it was noted that interval progression of metastatic neuroendocrine tumor with at least three new hepatic lesions, one new retroperitoneal nodule and new sites of osseous disease, compatible with overall disease progression. She is being treated with everolimus and octreotide along with xgeva for bone mets. ?She is here now for routine gynecologic care and overall is doing well in this regard. She calls to my attention today that she has noted on 2 separate occasions a milky green discharge from herright breast nipple. She otherwise denies any vaginal bleeding or discharge. No pelvic or abdominalpain. No changes in her bowel or bladder habits Visit Diagnosis: 1. 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 Jsabir Reeves. At the same time, she also underwent right colectomy in [facility] OR by Dr. Greyson Reeves. Biopsy [...] 17. Continue monthly Octreotide LAR injections 08/15/2020. 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 Past History: Patient Active Problem List Diagnosis Date Noted ??? Closed displaced fracture of head of right radius 11/20/2020 ??? 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 Colostomy complication, unspecified (CMS/HCC) 04/14/2020 ??? Abdominal pain 01/13/2020 ??? Benign [...] Epithelial hyperplasia 07/22/2019 ??? 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) 05/14/2019 ??? Acute blood loss anemia 04/17/2019 ??? Hypocalcemia 04/14/2019 ??? ANNE-MARIE (acute kidney injury) (CMS/HCC) 04/14/2019 ??? Large bowel obstruction (CMS/HCC) 04/12/2019 ??? Bone metastasis (CMS/HCC) 03/02/2019 ??? Neuro-endocrine carcinoma (CMS/HCC) 06/18/2018 ??? Neuroendocrine tumor 01/06/2018 ??? Mixed incontinence 10/23/2017 ??? H/O actinic keratosis 07/05/2017 ??? Personal history of diseases of skin or subcutaneous tissue 07/05/2017 ??? 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 Anemia 04/09/2016 ??? Neuroendocrine carcinoma (CMS/HCC) 10/24/2015 ??? Obesity with body mass index 30 or greater 09/01/2015 ??? Family history of malignant neoplasm of other organs or systems 06/29/2015 ??? Family history of melanoma 06/29/2015 ??? Abnormal findings on diagnostic imaging of breast 06/07/2014 Past Medical History: Diagnosis Date ??? Cancer (CMS/HCC) ??? Family history of malignant hyperthermia grandson - questionable ??? GERD (gastroesophageal reflux disease) ??? Hypercholesteremia ??? Hypertension ??? Motion sickness ??? Personal history of other diseases of the digestive system History of hemorrhoids - (Added by Conv) ??? PONV (postoperative nausea and vomiting) [...] ??? Alcohol use: Yes Alcohol/week: 1.0 standard drinks Types: 1 Shots of liquor per week Family History Problem Relation Age of Onset ??? Breast cancer Sister Adenocarcinoma of breast - (Added by TW Conv) ??? Suicidality Father Family history of suicide - (Added by TW Conv) ??? Other (old age) Mother Current Medications: Current Outpatient Medications Medication Sig Dispense Refill ??? 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 cholecalciferol (VITAMIN D-3) 2,000 unit capsule Take 1 capsule (2,000 Units total) by mouth daily (Patient taking differently: Take 2,000 Units by mouth daily ) 30 capsule 2 ??? cholestyramine (QUESTRAN) 4 gram packet Take 1 packet by mouth 3 (three) times a day with [id number] packet 3 ??? clotrimazole-betamethasone (LOTRISONE) cream clotrimazole-betamethasone 1 %- 0.05 % topical cream APPLY EXTERNALLY TO ABDOMEN TWICE DAILY NEEDED ??? coenzyme [id number] (CO Q-10, WITH VIT E,) 100-5 mg-unit capsule Take by mouth early morningbefore breakfast ??? denosumab (XGEVA) 120 mg/1.7 mL (70 mg/mL) injection Inject under the skin every 30 (thirty) days ??? 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 fluticasone propionate (FLONASE) 50 mcg/actuation nasal spray fluticasone propionate 50 mcg/actuation nasal spray,suspension ??? gabapentin (NEURONTIN) 600 mg tablet Take 1 tablet (600 mg total) by mouth 3 (three) times a day 90 tablet 11 ??? HYDROcodone-acetaminophen (NORCO) 5-325 mg per tablet ??? loperamide HCl (IMODIUM A-D ORAL) ??? montelukast (SINGULAIR) 10 mg tablet Take 10 mg by mouth as needed ??? octreotide (SandoSTATIN) 50 mcg/mL (1 mL) syringe every 30 (thirty) days ??? 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 Briseno at office visit. ??? ondansetron (ZOFRAN) 8 mg tablet Take 1 tablet (8 mg total) by mouth every 8 (eight) hours as needed for nausea or vomiting 20 tablet 3 ??? ostomy supplies misc Patient has colostomy and needs Cavilon 3M skin barrier film to manage. 20each 6 ??? oxybutynin (DITROPAN) 5 mg tablet Take 1 tablet (5 mg total) by mouth 2 (two) times a day for 14 days 28 tablet 0 ??? oxyCODONE (ROXICODONE) 5 mg immediate release tablet Take 1 tablet (5 mg total) by mouth every 4 (four) hours as needed for pain 8 tablet 0 ??? simvastatin (ZOCOR) 20 mg tablet Take 20 mg by mouth nightly ??? triamcinolone (KENALOG) 0.1 % ointment Apply to itchy rash on hands twice daily until improved 454 g 1 No current facility-administered medications for this visit. Facility-Administered Medications Ordered in Other Visits Medication Dose Route Frequency Provider Last Rate Last Admin ??? L-arginine 1.25%/L-lysine 1.25% infusion 1,000 mL 1,000 mL intravenous Continuous LaurenE. Amaya MD Last Imagin12/27/20 PET IMPRESSION:?? 1. Interval progression of metastatic neuroendocrine tumor with at least three new hepatic lesions, one new retroperitoneal nodule and new sites of osseous disease, compatible with overall disease progression.?? 2. Stable pulmonary nodules and areas of tracer uptake. ?Recent Tumor Markers: Lab Results Component Value Date CA125 11.8 10/03/2015 Preventive screening: Health Maintenance Topic Date Due ??? Fall Risk Assessment Never done ??? Depression Screening-PHQ Never done ??? Regular Well Visit/Exam Never done ??? Colon Cancer Screening-Colonoscopy Never done ??? Breast Cancer Screening-Mammogram 12/20/2020 ??? Influenza Vaccine (1) 03/08/2021 ??? Osteoporosis Screening-Bone Density Scan 03/10/2022 ??? DTaP/Tdap/Td Vaccine (2 - Td or Tdap) 11/20/2030 ? ? Pneumococcal (PCV13 & PPSV23) 65+ yrs High Risk Completed ? ? Pneumococcal (PCV13 & PPSV23) 65+ yrs Completed ??? Zoster Vaccines Completed ??? Hepatitis C Screening Completed Bone Density Scan: Abnormal; and Date: 03/10/20 Objective Physical exam: There were no vitals [...] normal. Breast exam: No masses, no nipple discharge but has given recent history of milky green discharge on 2 separate occasions, axilla free Abdominal: Soft. Bowel sounds are normal. She exhibits no distension and no mass. There is no tenderness. No hernia. Genitourinary: Vagina normal. No vaginal discharge found. Musculoskeletal: Normal range of motion. She exhibits no edema or tenderness. Lymphadenopathy: She has no cervical adenopathy. Neurological: She is alert and oriented to person, place, and time. No sensory deficit. Skin: Skin is warm and dry. No rash noted. Psychiatric: She has a normal mood and affect. Labs: Lab Results Component Value Date WBC 5.2 01/02/2021 HGB 13.1 01/02/2021 HCT 37.5 01/02/2021 NEUTROABS 3.9 01/02/2021 LABPLAT 134 (L) 01/02/2021 CALCIUM 10.7 (H) 01/02/2021 CO2 28 01/02/2021 ALBUMIN 4.5 01/02/2021 PROT 7.1 01/02/2021 ANIONGAP 7 01/02/2021 TRIG 253 (H) 01/02/2021 HDL 57 01/02/2021 ALT 18 01/02/2021 AST 21 01/02/2021 MAGNESIUM 1.6 05/03/2019 SODIUM 141 01/02/2021 POTASSIUM 3.8 01/02/2021 CHLORIDE 106 01/02/2021 CREATININE 0.89 01/02/2021 BUNSER 12 01/02/2021 GLUCOSE 109 01/02/2021 INR 1.0 11/20/2020 BILITOT 0.5 01/02/2021 CA125 11.8 10/03/2015 Assessment/Plan La is a 70 y.o., female with a history of carcinoid tumor/well differentiated neuro endocrine. She is here today for follow-up. PET scan from 12/27/20 revealed interval progression of metastatic neuroendocrine tumor with at least three new hepatic lesions, one new retroperitoneal nodule and new sites of osseous disease, compatible with overall disease progression. 1. ??She will continue to follow up with Dr. Cr. ?? 2. She follows up with a urogynocologist close to home 3. Well women screening exams: she will follow up with a bone mineral density this year [facility]. Previously treated with Prolia.She will follow up. 4. I have scheduled a bilateral diagnostic breast US to evaluate nipple discharge. 5. We will??see the patient back for follow up in??one years time. ?? Oksana Rivas NP 01/18/2021 9:56 AM CC: Patient Care Team and PCP: Julio César Briseno MD Enclosures:Note Cosigned by Jasbir Reeves MD at 01/18/2021 5:19 PM CDT documented in this encounter Miscellaneous Notes * Treatment Plan - Oksana Rivas NP - 01/18/2021 2:00 PM CDT Pt is scheduled for a bilateral breast US to evaluate right nipple discharge. Carcinoid tumor has recurred; seeing Dr Dm Cr * Treatment Plan - Oksana Rivas NP - 01/18/2021 2:00 PM CDT To get bilateral mammogram and a right breast US to work up nipple discharge documented in this encounter Plan of Treatment Not on file documented as of this encounter Results * US Breast Right Limited (01/23/2021 10:03 AM CDT) Anatomical Region Laterality Modality Breast Right Ultrasound 01/23/2021 10:2 5 AM CDT Impressions 01/23/2021 10:34 AM CDT 1. ??No suspicious mammographic or sonographic findings to explain patient's symptoms of right nipple discharge. 2. ??No suspicious mammographic findings in EITHER breast. OVERALL FINAL ASSESSMENT: BI-RADS Category 1: Negative. Annual screening mammography is recommended. Continued clinical follow-up is recommended. ??Any further evaluation at this time, including decision to biopsy, should be determined by clinical assessment. Dictated by: Edwin Darnell M.D. The radiology attending physician has personally reviewed this study, and had reviewed and/or edited this written report and agrees with it. Electronically signed by: SUZY RUSH MD Narrative 01/23/2021 10:34 AM CDT EXAMINATION: BILATERAL DIGITAL DIAGNOSTIC MAMMOGRAM INCLUDING CAD AND BILATERAL DIGITAL BREAST TOMOSYNTHESIS; RIGHT BREAST SONOGRAM HISTORY: 70-year-old woman with greenish right nipple discharge of one month duration. ??The patient has a personal history of metastatic neuroendocrine tumor and a family history of bilateral breast cancer in her sister diagnosed at age 62. COMPARISON: Screening mammogram 12/21/2019, 01/27/2018 TECHNIQUE: ?? Full field digital mammographic views of BOTH breasts were performed, including computer aided detection (CAD) and BILATERAL digital breast tomosynthesis (DBT). ??Directed ultrasound evaluation of the RIGHT breast was performed. BREAST PARENCHYMAL COMPOSITION: There are scattered areas of fibroglandular density. MAMMOGRAM FINDINGS: There is no suspicious abnormality in EITHER breast. ?? SONOGRAM FINDINGS: Targeted sonographic evaluation of the right subareolar region was performed. The visualized ducts are normal in morphology with no evidence of ectasia. ??There is no focal abnormal solid or cystic lesion suggestive of malignancy in the area of recent concern. ?? Procedure Note Suzy Rush MD - 01/23/2021 EXAMINATION: BILATERAL DIGITAL DIAGNOSTIC MAMMOGRAM INCLUDING CAD AND BILATERAL DIGITAL BREAST TOMOSYNTHESIS; RIGHT BREAST SONOGRAM HISTORY: 70-year-old woman with greenish right nipple discharge of one month duration. The patient has a personal history of metastatic neuroendocrine tumor and a family history of bilateral breast cancer [...] normal in morphology with no evidence of ectasia. There is no focal abnormal solid or cystic lesion suggestive of malignancy in the area of recent concern. IMPRESSION: 1. No suspicious mammographic or sonographic findings to explain patient's symptoms of right nipple discharge. 2. No suspicious mammographic findings in EITHER breast. OVERALL FINAL ASSESSMENT: BI-RADS Category 1: Negative. Annual screening mammography is recommended. Continued clinical follow-up is recommended. Any further evaluation at this time, including decision to biopsy, should be determined by clinical assessment. Dictated by: Edwin Darnell M.D. The radiology attending physician has personally reviewed this study, and had reviewed and/or edited this written report and agrees with it. Electronically signed by: SUZY RUSH MD Oksana Rivas NP IMG MAMMO PROCEDURES Final Resu lt * Diagnostic Mammogram Bilateral W Seng (01/23/2021 9:39 AM CDT) Anatomical Region Laterality Modality Breast Bilateral Mammography 01/23/2021 10:2 5 AM CDT Impressions 01/23/2021 10:34 AM CDT 1. ??No suspicious mammographic or sonographic findings to explain patient's symptoms of right nipple discharge. 2. ??No suspicious mammographic findings in EITHER breast. OVERALL FINAL ASSESSMENT: BI-RADS Category 1: Negative. Annual screening mammography is recommended. Continued clinical follow-up is recommended. ??Any further evaluation at this time, including decision to biopsy, should be determined by clinical assessment. Dictated by: Edwin Darnell M.D. The radiology attending physician has personally reviewed this study, and had reviewed and/or edited this written report and agrees with it. Electronically signed by: SUZY RUSH MD Narrative 01/23/2021 10:34 AM CDT EXAMINATION: BILATERAL DIGITAL DIAGNOSTIC MAMMOGRAM INCLUDING CAD AND BILATERAL DIGITAL BREAST TOMOSYNTHESIS; RIGHT BREAST SONOGRAM HISTORY: 70-year-old woman with greenish right nipple discharge of one month duration. ??The patient has a personal history of metastatic neuroendocrine tumor and a family history of bilateral breast cancer in her sister diagnosed at age 62. COMPARISON: Screening mammogram 12/21/2019, 01/27/2018 TECHNIQUE: ?? Full field digital mammographic views of BOTH breasts were performed, including computer aided detection (CAD) and BILATERAL digital breast tomosynthesis (DBT). ??Directed ultrasound evaluation of the RIGHT breast was performed. BREAST PARENCHYMAL COMPOSITION: There are scattered areas of fibroglandular density. MAMMOGRAM FINDINGS: There is no suspicious abnormality in EITHER breast. ?? SONOGRAM FINDINGS: Targeted sonographic evaluation of the right subareolar region was performed. The visualized ducts are normal in morphology with no evidence of ectasia. ??There is no focal abnormal solid or cystic lesion suggestive of malignancy in the area of recent concern. ?? Procedure Note Suzy Rush MD - 01/23/2021 EXAMINATION: BILATERAL DIGITAL DIAGNOSTIC MAMMOGRAM INCLUDING CAD AND BILATERAL DIGITAL BREAST TOMOSYNTHESIS; RIGHT BREAST SONOGRAM HISTORY: 70-year-old woman with greenish right nipple discharge of one month duration. The patient has a personal history of metastatic neuroendocrine tumor and a family history of bilateral breast cancer [...] normal in morphology with no evidence of ectasia. There is no focal abnormal solid or cystic lesion suggestive of malignancy in the area of recent concern. IMPRESSION: 1. No suspicious mammographic or sonographic findings to explain patient's symptoms of right nipple discharge. 2. No suspicious mammographic findings in EITHER breast. OVERALL FINAL ASSESSMENT: BI-RADS Category 1: Negative. Annual screening mammography is recommended. Continued clinical follow-up is recommended. Any further evaluation at this time, including decision to biopsy, should be determined by clinical assessment. Dictated by: Edwin Darnell M.D. The radiology attending physician has personally reviewed this study, and had reviewed and/or edited this written report and agrees with it. Electronically signed by: SUZY RUSH MD Oksana Rivas BODY SHOP MANAGER IMG MAMMO PROCEDURES Final Resu lt documented in this encounter Visit Diagnoses Diagnosis Discharge from right nipple- Primary Neuroendocrine carcinoma (HCC) Other malignant neoplasm of unspecified site Discharge from right nipple documented in this encounter Historical Medications * This list may reflect changes made after this encounter. everolimus (AFINITOR) 10 mg tablet 10 mg Pt states she is taking every other day. 02/13/21 RW 11/13/2021 added in this encounter Care Teams Continuous Absorption Process Operator Relationship Specialty Start Date End Date Julio César Briseno MD PCP - General 10/01/16 Eren Cr MD Referring Physician Medical Oncology 11/25/18 Yohana Bowen MD Radiation Oncologist Radiation Oncology 11/25/18 Sabrina Willard NP [address] [place] [address] Nurse Practitioner Medical Oncology 08/17/20 11/26/21 documented as of this encounter
--- OUTSIDE RECORDS SUMMARY | 2024-06-25 22:28 | XMS_ITS | Encounter Summary ---
Author Organization [facility] Healthcare Address [address] [place] [address] Care Team Providers Care Portrait Painter Name Role Phone Julio César Briseno MD Primary Care Provider [phone] Eren Cr MD Unavailable [phone] Yohana Bowen MD Unavailable Sabrina Willard NP Unavailable [phone] Reason for Referral * Diagnostic Imaging (Routine) - Closed Specialty Diagnoses / Procedures Referred By Evelyne bowman Referred To Contact Diagnoses Discharge from right nipple Procedures US Breast Right Limited US BREAST COMPLETE BILATERAL Oksana Rivas NP Phone: tel: fax: [facility] Referral ID Status Reason Start Date Expiration Date Visits Re quested Visits Authorized [id number] Closed 01/18/2021 02/17/2022 1 1 * Diagnostic Imaging (Routine) - Closed Specialty Diagnoses / Procedures Referred By Evelyne bowman Referred To Contact Diagnoses Discharge from right nipple Procedures Diagnostic Mammogram Bilateral W Seng Diagnostic Mammogram Right W Seng Oksana Rivas NP Phone: tel: fax: [facility] Referral ID Status Reason Start Date Expiration Date Visits Re quested Visits Authorized [id number] Closed 01/18/2021 02/17/2022 1 1 Reason for Visit * Diagnostic Imaging (Routine) - Closed Specialty Diagnoses / Procedures Referred By Evelyne t Referred To Contact Diagnoses Discharge from right nipple Procedures Diagnostic Mammogram Bilateral W Seng Diagnostic Mammogram Right W Seng Oksana Rivas NP Phone: tel: fax: [facility] Referral ID Status Reason Start Date Expiration Date Visits Re quested Visits Authorized [id number] Closed 01/18/2021 02/17/2022 1 1 Encounter Details Date Type Department Care Team (Latest Contact Info) Description 01/23/2021 9:02 AM CDT - 01/23/2021 11:59 PM CDT Hospital Encounter [facility] Advanced Medicine Breast Imaging [facility] ([facility]) [address] [place] [id number] Jasbir Reeves [address] [place] [phone] [place] [address] [place] [phone] Discharge from right nipple Discharge Disposition: Discharge to home or self care Social History Tobacco Use Types Packs/Day Years Used Date Smoking Tobacco: Never Smokeless Tobacco: Never Alcohol Use Standard Drinks/Week Comments Yes 1 (1 standard drink = 0.6 oz pur e alcohol) Comments No Sex and Gender Information Value Date Recorded Sex Assigned at Not on file 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 11/23/2020 ostomy supplies [facility] Patient has colostomy and needs Cavilon 3M skin barrier film to manage. 20 each 6 09/21/2019 simvastatin (ZOCOR) 20 mg tablet Take 1 tablet (20 mg total) by mouth nightly ascorbic acid, vitamin C, 500 mg capsuleIndications :supplement Take 1 tablet by mouth bat boy/girl before breakfast 07/04/2016 4 cholecalciferol (VITAMIN D-3) 2,000 unit capsule Take 1 capsule (2,000 Units total) by mouth daily 30 capsule 2 04/25/2019 3 cholestyramine (QUESTRAN) 4 gram packet Take 1 packet by mouth 3 (three) times a day with meals 270 packet 3 09/04/2019 2 clotrimazole-betam ethasone (LOTRISONE) cream Apply 1 Application topically daily as needed (rash) 4 coenzyme [id number] 100-5 mg-unit capsuleIndications :supplement Take 1 tablet by mouth bat boy/girl before breakfast 4 denosumab (XGEVA) 120 mg/1.7 mL (70 mg/mL) injection Inject under the skin every 30 (thirty) days [address] (CYMBALTA) 30 mg capsule [...] Procedure Name Priority Date/Time Associated Diagnosis Comments US BREAST RIGHT LIMITED Schedule Routine, Read Routine (OP Routine) 01/23/2021 10:03 AM CDT Discharge from right nipple DIAGNOSTIC MAMMOGRAM BILATERAL W SENG Schedule Routine, Read Routine (OP Routine) 01/23/2021 9:39 AM CDT Discharge from right nipple documented in this encounter Results * US Breast Right [...] it. Electronically signed by: SUZY RUSH MD us Oksana Rivas TUBE CUTTER IMG MAMMO PROCEDURES Final Resu lt documented in this encounter Visit Diagnoses Diagnosis Discharge from right nipple documented in this encounter Care Teams Portrait Painter Relationship Specialty Start Date End Date Julio César Briseno MD PCP - General 10/01/16 Eren Cr MD Referring Physician Medical Oncology 11/25/18 Yohana Bowen MD Radiation Oncologist Radiation Oncology 11/25/18 Sabrina Willard NP [address] [place] [address] Nurse Practitioner Medical Oncology 08/17/20 11/26/21 documented as of this encounter
--- OUTSIDE RECORDS SUMMARY | 2024-06-25 22:28 | XMS_ITS | Encounter Summary ---
Author Organization [facility] Address [address] [place] [address] Phone Care Team Providers Care Claims Adjudicator Name Role Phone Julio César Briseno MD Primary Care Provider [phone] Eren Cr MD Unavailable [phone] Yohaan Bowen MD Unavailable Sabrina Willard NP Unavailable Reason for Visit * Reason Comments Initial Consult * Consultation (Routine) - Closed Specialty Diagnoses / Procedures Referred By Evelyne bowman Referred To Contact Surgical Oncology Diagnoses Nipple discharge in female Oksana Rivas NP Phone: tel: fax: [facility] (All Locations) Referral ID Status Reason Start Date Expiration Date V isits Requested Visits Authorized [id number] Closed Specialty Services Required 01/26/2021 02/25/2022 1 1 Encounter Details Date Type Department Care Team (Late st Contact Info) Description 02/16/2021 2:40 PM CDT Office Visit [facility] Surgery [address] [place] [address] [place] [address] Kyra Mitchell MD PhD [address] [facility] [id number] [place] [address] Nipple discharge in female Social History Tobacco Use Types Packs/Day Years [...] on file 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 HPI: Patient is a 70 y.o. 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 She follows with medical oncology here. She reports having spontaneous right sided nipple discharge twice in the last six month. Once in September and once in November. She has crusty yellow material in her [...] and had recent surgery on her wrist. MANAGER GRAPHIC HISTORY: Patient underwent menarche at age 11. [...] ??? JOINT REPLACEMENT Left 2014 ? ? IA REMOVAL OF TONSILS,<12 Y/O Tonsillectomy - (Added by TW Conv) ??? IA TOTAL ABDOM HYSTERECTOMY Hysterectomy - (Added by TW Conv) Medications: HOME MEDICATIONS : ascorbic acid, vitamin C, 500 mg capsule cholecalciferol (VITAMIN D-3) 2,000 unit capsule cholestyramine (QUESTRAN) 4 gram packet clotrimazole-betamethasone (LOTRISONE) cream coenzyme [id number] E (CO Q-10, WITH VIT E,) 100-5 mg-unit capsule denosumab (XGEVA) 120 mg/1.7 mL (70 mg/mL) injection diphenoxylate-atropine (LOMOTIL) 2.5-0.025 mg per tablet DULoxetine DR (CYMBALTA) 30 mg capsule everolimus [...] oxyCODONE (ROXICODONE) 5 mg immediate release tablet simvastatin (ZOCOR) 20 mg tablet triamcinolone [...] is negative other than complaints as documented above or on the scanned patient health history form. Exam Vital signs: She is Height: 160 cm (5' 3 ) tall and weighs Weight: 82.1 kg (181 lb) lbs. General: Well-developed and well-nourished. Neuro: Patient is [...] to biopsy, shouldbe determined by clinical assessment. Pathology: No pathology results available. ASSESSMENT 1. Right nipple discharge PLAN:La's right nipple discharge is sporadic at this time. It has both benign and pathologic features at this time. However, given the discharge is unilateral and spontaneous she will need follow up in the office in 3 months. We will repeat imaging at that time. Given her co-morbidities (currenttreatment of metasatatic ileal NET), will favor conservative management at this time. I answered all her questions today. She knows to call with questions. Thank you for the kind referral and opportunity to be involved in the care of La Chung. Pleasecall with questions. This note is dictated and transcribed by [employer]. Lime Puller variances may occur. Despite proofreading, typographical errors may occur. Cc: Oksana Rivas NP I have seen and examined this patient with the fellow Dr. Beverly Wallace. Cosigned by Kyra Mitchell MD PhD at 03/05/2021 3:31 PM CDT Associated attestation - Kyra Mitchell MD PhD - 03/05/2021 3:31 PM CDT I have seen and examined the patient with the Breast Surgery Fellow Dr Beverly Wallace. We will have her return in 3 months for clinical breast exam to re-assess. documented in this encounter Plan of Treatment Not on file documented as of this encounter Visit Diagnoses Diagnosis Nipple discharge in female documented in this encounter Orders Outpatient Referral Count Last Ordered Date st Ordered Date AMB REFERRAL TO SURGICAL ONCOLOGY 1 021 documented in this encounter Care Teams Claims Adjudicator Relationship Specialty Start Date End Date Julio César Briseno MD PCP - General 10/01/16 Eren Cr MD Referring Physician Medical Oncology 11/25/18 Yohana Bowen MD Radiation Oncologist Radiation Oncology 11/25/18 Sabrina Willard NP [address] [place] [address] Nurse Practitioner Medical Oncology 08/17/20 11/26/21 documented as of this encounter
--- OUTSIDE RECORDS SUMMARY | 2024-06-25 22:28 | XMS_ITS | Encounter Summary ---
Author Organization [facility] Address [address] [place] [address] Phone Care Team Providers Care Computer Aided Drafter Name Role Phone Julio César Briseno MD Primary Care Provider [phone] Eren Cr MD Unavailable [phone] Yohana Bowen MD Unavailable Sabrina Willard NP Unavailable [phone] Reason for Visit * Oncology (Routine) - Closed Specialty Diagnoses / Procedures Referred By Contellen t Referred To Contact Oncology Diagnoses Neuroendocrine carcinoma (HCC) Sabrina Willard, CECILIA [address] [place] [address] Phone: tel: fax: Eren Cr MD [address] [facility] [address] [place] [address] Phone: tel: fax: Referral ID Status Reason Start Date Expiration Date V isits Requested Visits Authorized [id number] Closed Specialty Services Required 01/26/2021 02/25/2022 99 99 Encounter Details Date Type Department Care Team (Late st Contact Info) Description 01/30/2021 2:30 PM CDT Office Visit [facility] [address] [place] [address] [place] [address] Eren Cr MD [address] [facility] [address] [place] [address] Neuroendocrine carcinoma (CMS/HCC) (HCC) (Primary Dx); Malignant [...] file Legal Sex Female 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 Gender Identity Not on file Sexual Orientation Straight 02/19/2021 9: 29 AM CDT Occupation Industry Job Start Date Job End Date retired Not on file Not on file Not on file documented as of this encounter Last Filed Vital Signs Vital Sign Reading Time Taken Comments Blood Pressure 110/59 01/30/2021 3:01 PM CDT Pulse 89 01/30/2021 3:01 PM CDT Temperature 36.4 ??C (97.5 ??F) 01/30/2021 3:01 PM CD T Respiratory Rate 18 01/30/2021 3:01 PM CDT Oxygen Saturation 97% 01/30/2021 3:01 PM CDT Inhaled Oxygen Concentration - - Weight 82.4 kg (181 lb 9.6 oz) 01/30/2021 3:01 P M CDT Height - - Body Mass Index 32.17 01/18/2021 1:49 PM CDT documented in this encounter Progress Notes * Sabrina Willard NP - 01/30/2021 2:30 PM CDT MEDICAL ONCOLOGY OUTPATIENT ROV NOTE Lashirley Chung : 1950 DATE OF VISIT: 01/30/2021 Oncology History Overview Note TREATMENT HISTORY: 1. [...] time, she also underwent right colectomy in [facility] OR by Dr. Greyson Reeves. 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 s/p SBO s/p diverting loop colostomy in April 2019. She is s/p #4??PRRT/Lutathera on ??08/05/2019. La Chung underwent fulguration of ostomy site on 05/30/2020.??She is on monthly SSA with Octreotide LAR injections. PET scan 12/27/2020 noted progressive disease, and chromogranin A was rising as well. Started Afinitor 10 mg PO daily 01/19/2021. Diarrhea started 3-4 days ago. Output is now all brown liquid. No bleeding. Taking up to 1-2 imodium in a day, which helps some. Takes cholestyramine 2 times a day. No mouth sores. Has funny taste in mouth, metallic like. Has VILLATORO and some sinus drainage. She is tired. Light headed when standing. Thinks she may be dehydrated. SOB with walking into the clinic today. No cough. Has some white drainage from right breast on occasion.Spoke to Dr. Jasbir Reevse's office about this.Has had mammogram and it is normal. Has been advised to see a breast surgeon. ALLERGIES: Allergies Allergen Reactions ??? Morphine Blisters ??? Ezetimibe-Simvastatin Muscle pain and Unknown Muscle weakness ??? Ramipril Cough ROS: A complete review of systems was performed and was negative other than those mentioned in the aboveinterval history. All other systems negative. OBJECTIVE: Most Recent Vitals: BP: 110/59 Temp: 36.4 ??C (97.5 ??F) Temp src: Transdermal Pulse: 89 Resp: 18 SpO2: 97 % Weight: 82.4 kg (181 lb 9.6 oz) PHYSICAL EXAM: ECOG PS: 1 GEN: Calm, conversant, well-appearing female in no apparent distress HEENT: PERRL, sclerae anicteric and non-injected, dry mucus membranes, OP clear without erythema orexudates LYMPH: No cervical, supraclavicular lymphadenopathy CV: RRR, no m/r/g PULM/CHEST: Clear to auscultation bilaterally. No wheezes or rales. Unlabored breathing. 2/6 systolic murmur. ABD: Soft, non tender, non distended, bowel sounds present. well healed abdominal surgical scars. EXT: No LE edema, warm and well-perfused SKIN: No rashes over exposed skin NEURO: A&Ox4, swinging cut off saw operator grossly intact by conversation, moving all extremities well, no focal deficits appreciated PSYCH: Mood euthymic, affect appropriate and congruent, speech clear and goal-directed LABS: All laboratories personally reviewed and discussed with patient during office visit, selected values included below. Lab Results Component Value Date WBC 3.1 (L) 01/30/2021 HGB 13.7 01/30/2021 HCT 40.0 01/30/2021 MCV 92.1 01/30/2021 LABPLAT 92 (L) 01/30/2021 NEUTROABS 2.0 01/30/2021 CMP: Lab Results Component Value Date/Time SODIUM 136 01/30/2021 02:10 PM POTASSIUM 4.5 01/30/2021 02:10 PM CO2 23 01/30/2021 02:10 PM BUNSER 23 01/30/2021 02:10 PM GLUCOSE 133 01/30/2021 02:10 PM CREATININE 1.19 (H) 01/30/2021 02:10 PM CALCIUM 10.4 (H) 01/30/2021 02:10 PM CHLORIDE 103 01/30/2021 02:10 PM ALBUMIN 4.3 01/30/2021 02:10 PM AST 35 01/30/2021 02:10 PM ALT 28 01/30/2021 02:10 PM ALKPHOS 120 01/30/2021 02:10 PM BILITOT 0.3 01/30/2021 02:10 PM PROT 7.2 01/30/2021 02:10 PM ANIONGAP 10 01/30/2021 02:10 PM Lab Results Component Value Date MAGNESIUM 1.6 05/03/2019 Lab Results Component Value Date PHOS 2.3 01/30/2021 Tumor Marker History Some values may be hidden. Unless noted otherwise, only the newest values recorded on each date aredisplayed. Tumor Markers Latest Ref Range 11/07/20 12/06/20 01/02/21 01/30/21 Chromogranin A <93 ng/mL 628 (A) 789 (A) 779 (A) 1181 (A) (A) Abnormal value Comments are available for some flowsheets but are not being displayed. IMAGING: US Breast Right Limited Narrative: EXAMINATION: BILATERAL DIGITAL DIAGNOSTIC MAMMOGRAM INCLUDING [...] PIZARRO MD Diagnostic Mammogram Bilateral W Seng Narrative: EXAMINATION: BILATERAL DIGITAL DIAGNOSTIC MAMMOGRAM INCLUDING [...] it. Electronically signed by: DANA PIZARRO MD ASSESSMENT AND PLAN: Ms. Chung is 70 y.o. 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 ?1.?Metastatic neuroendocrine tumor of the ilium: started PO afinitor 10 mg daily 01/19/2021.She developed diarrhea about 1 week into the medication. For now, given symptoms of dehydration with fatigue, dizziness, dry mucus membranes, will advise holding the drug for the remainder of the week. Will provide IV fluids today. She will return next week for lab work, and if doing well, resume afinitor at that time. Will plan for f/u office visit in 2 weeks from now. She is going out of town at the time of her next injection and will work her next dose of octreotide around this. Will need tofollow fasting lipid panel every few months while on afinitor as well. 2. Diarrhea: likely from afinitor. Will hold, and provide IV fluids today. Reassess resumption after lab work next week. Discussed imodium up to 8 times in 24 hours as needed. 3. Osseous metastasis: Resume xgeva today. Continue monthly. Follow phosphorous and calcium levels. 4. Fatigue: could be related to afinitor and dehydration. Add TSH today. Possible murmur today. Could be volume dependent. If persists at next visit, consider echocardiogram. 5. Breast drainage: currently not present. S/p mammogram and advised her to f/u with breast surgeonas recommended by Dr. Reeves. Addendum: spoke to La on the phone 02/01/2021 @ 1100 to f/u and see how she is feeling after IV hydration and hold the afinitor. She reports feeling better, and was almost stronger after the IV fluids. She did not realize how weak she was feeling before then. She is taking imodium up to 6 times a day and the stool has not slowed down too much. Consider Lomotil. Discussed monitoring, and also foods to avoid for carcinoid syndrome such as ETOH, fatty foods, caffeine, dark chocolate, salted/smoked meats, raspberries, bananas, avocados, nuts, etc. She was worried about the jump of the chromogranin A. It is too soon into the Afnitor to really assess with the chromogranin A. Will follow this trend again in a month or so. She will call with any questions. She has lab work scheduled in 1 week and will discuss resumption of afinitor at that time. She has f/u in the office in 2 weeks. She willlet us know if she needs anything before that visit in 2 weeks. Sabrina Willard NP Medical Oncology Cosigned by Eren rC Jr., MD at 02/01/2021 11:59 AM CDT documented in this encounter Plan of Treatment Not on file documented as of this encounter Results * (ABNORMAL) Comprehensive metabolic panel (02/13/2021 1:13 PM CDT) Sodium 139 135 - 145 mmol/L CERMINNIE [facility] Comment:Testing performed by : [facility], [address] [place] [phone] Potassium, pl 4.0 3.3 - 4.9 mmol/L CERNER [facility]J Comment:Testing performed by : [facility], [address] [place] [phone] Chloride 102 97 - 110 mmol/L [facility]ER [facility] Comment:Testing performed by : [facility], [address] [place] [phone] CO2 31 22 - 32 mmol/L [facility] Comment:Testing performed by : [facility], [address] [place] [phone] Anion gap 6 2 - 15 mmol/L [facility] Comment:Testing performed by : [facility], [address] [place] [phone] BUN 13 8 - 25 mg/dL [facility] Comment:Testing performed by : [facility], [address] [place] [phone] Creatinine 0.85 0.60 - 1.10 mg/dL [facility] Comment:Testing performed by : [facility], [address] [place] [phone] Glucose 134 70 - 199 mg/dL CERMINNIE [facility] Comment: Interpretive Data Fasting glucose >/= [...] by: [facility], [address] [place], [place] [phone] Calcium 11.0(H) 8.5 - 10.3 mg/dL [facility]ER [facility] Comment:Testing performed by : [place] [id number] Bilirubin, total 0.4 0.1 - 1.2 mg/dL [facility] Comment:Testing performed by : [address] [phone] Protein, pl 7.2 6.5 - 8.5 g/dL [facility] Comment:Testing performed by : [facility], [address] [place] [phone] Albumin 4.1 3.5 - 5.0 g/dL [facility] Comment:Testing performed by : [address] [phone] Alk phos 174(H) 40 - 130 Units/L [facility] Comment:Testing performed by : [place] [id number] ALT 28 7 - 45 Units/L [facility] Comment:Testing performed by : [facility], [address] [place] [phone] AST 36 10 - 45 Units/L [facility] Comment:Testing performed by : [address] [phone] Blood specimen (specimen) 02/13/2021 1:13 PM CDT 02/13/2021 1:15 PM CDT us Eren Cr MD LAB BLOOD ORDERABLES Final Re sult CERNER [facility] [place] [address] * (ABNORMAL) CBC with auto differential (02/13/2021 1:13 PM CDT) WBC 4.0 3.8 - 9.8 K/cumm JASON BLACK Comment:Testing performed by : [facility], [address] [place] [phone] Hgb 12.2 12.1 - 15.1 g/dL JASON BLACK Comment:Testing performed by : [facility], [address] [place] [phone] Hct 34.7(L) 36.1 - 44.3 % JASON BLACK Comment:Testing performed by : [place] [id number] Plt 121(L) 140 - 440 K/cumm JASON BLACK Comment:Testing performed by : [facility], [address] [place] [phone] MPV 7.9 6.8 - 10.4 fL JASON BLACK Comment:Testing performed by : [address] [phone] RBC 3.91 3.90 - 5.00 M/cumm JASON BLACK Comment:Testing performed by : [address] [phone] MCV 88.6 80.0 - 97.6 fL JASON [facility] Comment:Testing performed by : [address] [phone] MCH 31.3 26.7 - 33.7 pg JASON BLACK Comment:Testing performed by : [address] [phone] MCHC 35.3 32.7 - 35.5 g/dL JASON BLACK Comment:Testing performed by : [address] [phone] RDW CV 13.0 11.8 - 14.6 % JASON BLACK Comment:Testing performed by : [address] [phone] NRBC abs 0.00 0.00 - 0.01 K/cumm JASON [facility] Comment:Testing performed by : [facility], [address] [place] [phone] Blood specimen (specimen) 02/13/2021 1:13 PM CDT 02/13/2021 1:15 PM CDT Eren Cr MD LAB BLOOD ORDERABLES Final Re sult JASON BLACK [facility] Department [place] [address] * (ABNORMAL) Comprehensive metabolic panel (02/06/2021 1:45 PM CDT) Sodium 138 135 - 145 mmol/L JASON BLACK Comment:Testing performed by : [facility], [address] [place] [phone] Potassium, pl 4.1 3.3 - 4.9 mmol/L JASON BLACK Comment:Testing performed by : [facility], [address] [place] [phone] Chloride 105 97 - 110 mmol/L JASON BLACK Comment:Testing performed by : [facility], [address] [place] [phone] CO2 28 22 - 32 mmol/L JASON BLACK Comment:Testing performed by : [address] [phone] Anion gap 5 2 - 15 mmol/L JASON BLACK Comment:Testing performed by : [facility], [address] [place] [phone] BUN 10 8 - 25 mg/dL JASON BLACK Comment:Testing performed by : [facility], [address] [place] [phone] Creatinine 0.83 0.60 - 1.10 mg/dL JASON BLACK Comment:Testing performed by : [facility], [address] [place] [phone] Glucose 131 70 - 199 mg/dL JASON BLACK Comment: [...] by: [facility], [address] [place] [phone] Calcium 10.7(H) 8.5 - 10.3 mg/dL C[facility]ER [facility]J Comment:Testing performed by : [address] [phone] Bilirubin, total 0.4 0.1 - 1.2 mg/dL [facility]ER [facility]J Comment:Testing performed by : [address] [phone] Protein, pl 6.6 6.5 - 8.5 g/dL [facility] Comment:Testing performed by : [address] [phone] Albumin 4.0 3.5 - 5.0 g/dL [facility]ER [facility] Comment:Testing performed by : [address] [phone] Alk phos 148(H) 40 - 130 Units/L [facility] Comment:Testing performed by : [address] [phone] ALT 31 7 - 45 Units/L C[facility]ER BJ Comment:Testing performed by : [address] [phone] AST 35 10 - 45 Units/L [facility]ER [facility]J Comment:Testing performed by : [address] [phone] Blood specimen (specimen) 02/06/2021 1:45 PM CDT 02/06/2021 1:46 PM CDT us Eren Cr MD LAB BLOOD ORDERABLES Final Re sult Performing Organization Address [facility] [place] [address] * Vitamin D 25 hydroxy (01/30/2021 2:10 PM CDT) Pathologist [facility] Vitamin D 25-OH 30 30 - 80 ng/mL [facility] Blood specimen (specimen) 01/30/2021 2:10 PM CDT 01/30/2021 3:10 PM CDT Eren Cr MD LAB BLOOD ORDERABLES Edited R esult - Final Performing Organization Address [facility] [place] [address] * Phosphorus (01/30/2021 2:10 PM CDT) Pathologist [facility] Phosphorus, pl 2.3 2.3 - 4.5 mg/dL [facility] Comment:Testing performed by : [facility], [address] [place] [phone] Blood specimen (specimen) 01/30/2021 2:10 PM CDT 01/30/2021 2:12 PM CDT us Eren Cr MD LAB BLOOD ORDERABLES Final Re sult Performing Organization Address [facility] [place] [address] documented in this encounter Visit Diagnoses Diagnosis Neuroendocrine carcinoma (HCC)- Primary Other malignant neoplasm of unspecified site Malignant neoplasm metastatic to liver (HCC) Bone metastasis Secondary malignant neoplasm of bone and bone marrow documented in this encounter Orders Outpatient Referral Count Last Ordered Date Fir st Ordered Date AMB REFERRAL TO ONCOLOGY 1 01/30/2021 Appointment Requests Count Last Ordered Date Fi rst Ordered Date [facility] CLINIC APPOINTMENT REQUEST 2 021 01/30/2021 [facility] LAB APPOINTMENT 2 02/13/202102/06 documented in this encounter Care Teams Computer Aided Drafter Relationship Specialty Start Date End Date Julio César Briseno MD PCP - General 10/01/16 Eren Cr MD Referring Physician Medical Oncology 11/25/18 Yohana Bowen MD Radiation Oncologist Radiation Oncology 11/25/18 Sabrina Willard NP [address] [place] [address] Nurse Practitioner Medical Oncology 08/17/20 11/26/21 documented as of this encounter
--- OUTSIDE RECORDS SUMMARY | 2024-06-25 22:28 | XMS_ITS | Encounter Summary ---
Author Organization [facility] Address [address] [place] [address] Phone Care Team Providers Care Orthodontic Assistant Name Role Phone Julio César Briseno MD Primary Care Provider Eren Cr MD Unavailable Yohana Bowen MD Unavailable Sabrina Willard NP Unavailable Encounter Details Date Type Department Care Team (Late st Contact Info) Description 02/13/2021 2:00 PM CDT Office Visit [facility] Oncology [address] [facility] Advanced Medicine 7th [place] [address] [place] [id number] Eren Cr MD [address] [facility] [address] [place] [address] Neuroendocrine carcinoma (CMS/HCC) (HCC) (Primary Dx); Malignant neoplasm metastatic to liver (CMS/HCC) (HCC); Bone metastasis (CMS/HCC) (HCC); Hypercalcemia Social History Tobacco Use Types Packs/Day Years Used Date Smoking Tobacco: Never Smokeless Tobacco: Never Alcohol Use Standard Drinks/Week Comments Yes 1 (1 standard drink = 0.6 oz pur e alcohol) Comments No Sex and Gender Information Value Date Recorded Sex Assigned at Not on file Legal 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 Gender Identity Not on file Sexual Orientation Straight 02/19/2021 9: 29 AM CDT Occupation Industry Job Start Date Job End Date retired Not on file Not on file Not on file documented as of this encounter Last Filed Vital Signs Vital Sign Reading Time Taken Comments Blood Pressure 139/75 02/13/2021 2:02 PM CDT Pulse 81 02/13/2021 2:02 PM CDT Temperature 36.6 ??C (97.9 ??F) 02/13/2021 2:02 PM CD T Respiratory Rate - - Oxygen Saturation 96% 02/13/2021 2:02 PM CDT Inhaled Oxygen Concentration - - Weight 82.8 kg (182 lb 8 oz) 02/13/2021 2:02 PM CDT Height - - Body Mass Index 32.33 01/18/2021 1:49 PM CDT documented in this encounter Progress Notes * Sabrina Willard NP - 02/13/2021 2:00 PM CDT MEDICAL ONCOLOGY OUTPATIENT ROV NOTE [employer] [place] : 1950 DATE OF VISIT: 01/30/2021 Oncology [...] Octreotide LAR injections 08/15/2020. Neuroendocrine carcinoma (CMS/HCC) (HCC) 10/03/2015 Initial Diagnosis [...] Started Afinitor 10 mg PO daily 01/19/2021. This was put on hold at her 01/30/2021 visit due to diarrhea and dizziness. She was given IV hydration, and after improved symptoms and blood work, she resumed Afinitor 10 mg every other day on 02/06/2021. No mouth sores. Has funny taste in mouth, metallic like. Has VILLATORO and some sinus drainage. Has a headache. Has left ear fullness and can't hear that well. Taking mucinex. Has terrible taste in mouth and a peppery taste on her tongue. Makes it hard to eat. Weight is down about 3 pounds in the last 2 weeks. Diarrhea continues, but has an applesauce consistency now which is much improved (was watery). Empties it about 7-8 times a day, which is no different than before the Afinitor. She is taking 4 imodium a day, sometimes 6. Dizziness persists. Had reported some white drainage from right breast on occasion.Spoke to Dr. Jasbir Reeves's office about this. Has had mammogram and it is normal. Has been advised to see a breast surgeon, which is scheduled for 02/16/2021. ALLERGIES: Allergies Allergen Reactions ??? Morphine Blisters ??? Ezetimibe-Simvastatin Muscle pain and Unknown Muscle weakness ??? Ramipril Cough ROS: A complete review of systems was performed and was negative other than those mentioned in the aboveinterval history. All other systems negative. OBJECTIVE: Most Recent Vitals: BP: 145/60 Temp: 37.1 ??C (98.7 ??F) Temp src: Oral Pulse: 79 Resp: 18 SpO2: 98 % Weight: 82.8 kg (182 lb 8 oz) PHYSICAL EXAM: ECOG PS: 1 GEN: Calm, conversant, well-appearing female in no apparent distress HEENT: PERRL, sclerae anicteric and non-injected, dry mucus membranes, OP clear without erythema orexudates. Right TM with patch like white. Left TM with all landmarks visible. No frontal or maxillary tenderness on palpation. LYMPH: No cervical, supraclavicular lymphadenopathy CV: RRR, no m/r/g (prior murmur resolved). PULM/CHEST: Clear to auscultation bilaterally. No wheezes or rales. Unlabored breathing. ABD: Soft, non tender, non distended, bowel sounds present. well healed abdominal surgical scars.Ostomy in LLQ. EXT: No LE edema, warm and well-perfused SKIN: No rashes over exposed skin NEURO: A&Ox4, assortment planner grossly intact by conversation, moving all extremities well, no focal deficits appreciated PSYCH: Mood euthymic, affect appropriate and congruent, speech clear and goal-directed LABS: All laboratories personally reviewed and discussed with patient during office visit, selected values included below. Lab Results Component Value Date WBC 4.0 02/13/2021 HGB 12.2 02/13/2021 HCT 34.7 (L) 02/13/2021 MCV 88.6 02/13/2021 LABPLAT 121 (L) 02/13/2021 NEUTROABS 2.7 02/13/2021 CMP: Lab Results Component Value Date/Time SODIUM 139 02/13/2021 01:13 PM POTASSIUM 4.0 02/13/2021 01:13 PM CO2 31 02/13/2021 01:13 PM BUNSER 13 02/13/2021 01:13 PM GLUCOSE 134 02/13/2021 01:13 PM CREATININE 0.85 02/13/2021 01:13 PM CALCIUM 11.0 (H) 02/13/2021 01:13 PM CHLORIDE 102 02/13/2021 01:13 PM ALBUMIN 4.1 02/13/2021 01:13 PM AST 36 02/13/2021 01:13 PM ALT 28 02/13/2021 01:13 PM ALKPHOS 174 (H) 02/13/2021 01:13 PM BILITOT 0.4 02/13/2021 01:13 PM PROT 7.2 02/13/2021 01:13 PM ANIONGAP 6 02/13/2021 01:13 PM Lab Results Component Value Date MAGNESIUM [...] developed diarrhea about 1 week into the medication, and had a week hold of therapy. She resumed the Afinitor 10 mg every other day 02/06/2021 and is doing well thus far. She is interested in trying the 10 mg once a day (considered 7.5 mg PO dosing today during our discussion). Will try the 10 mg daily, and if she has any new or worsening symptoms, she will discontinue the medication and call. Will plan for f/u office visit in 2 weeks from now at next Octreotide injections. Will need to follow fasting lipid panel every few months while on afinitor as well, and will be drawn at next visit (she is aware of fasting lab). 2. Diarrhea: Improved. likely from afinitor. Discussed imodium up to 8 times in 24 hours as needed.Provide Lomotil PRN todayl 3. Osseous metastasis: Resumed xgeva 2 weeks ago. Calcium is elevated today, and will provide IV hydration. Continue monthly. Follow phosphorous and calcium levels. 4. Breast drainage: currently not present. S/p mammogram and has f/u with breast surgeon 02/16/2021. 5. Sinus congestion/ear fullness: advised f/u with PCP. Sabrina Willard NP Medical Oncology Cosigned by Eren Cr Jr., MD at 02/14/2021 4:37 PM CDT documented in this encounter Plan of Treatment Not on file documented as of this encounter Visit Diagnoses Diagnosis Neuroendocrine carcinoma (HCC)- Primary Other malignant neoplasm of unspecified site Malignant neoplasm metastatic to liver (HCC) Bone metastasis Secondary malignant neoplasm of bone and bone marrow Hypercalcemia documented in this encounter Orders Appointment Requests Count Last Ordered Date Fi rst Ordered Date ONCBCN CLINIC APPOINTMENT REQUEST 2 021 02/13/2021 ONCBCN INJECTION APPOINTMENT REQUEST 1 02/06 ONCBCN LAB APPOINTMENT 1 02/27/2021 ONCBCN INFUSION APPT REQUEST 1 02/13/2021 documented in this encounter Care Teams Orthodontic Assistant Relationship Specialty Start Date End Date Julio César Briseno MD PCP - General 10/01/16 Eren Cr MD Referring Physician Medical Oncology 11/25/18 Yohana Bowen MD Radiation Oncologist Radiation Oncology 11/25/18 Sabrina Willard NP [address] [place] [address] Nurse Practitioner Medical Oncology 08/17/20 11/26/21 documented as of this encounter
--- OUTSIDE RECORDS SUMMARY | 2024-06-25 22:28 | XMS_ITS | Encounter Summary ---
Author Organization [facility] Address [address] [place] [address] Phone Care Team Providers Care Client Support Manager Name Role Phone Julio César Briseno MD Primary Care Provider [phone] Eren Cr MD Unavailable [phone] Yohana Bowen MD Unavailable Sabrina Willard NP Unavailable Reason for Visit * Oncology (Routine) - Closed Specialty Diagnoses / Procedures Referred By Contac t Referred To Contact Oncology Diagnoses Neuroendocrine carcinoma (HCC) Procedures ONCBCN ARM DRAW APPT ONC LAB ONLY Sabrina Willard, PRODUCTION MATERIAL COORDINATOR [address] [place] [address] Phone: tel: fax: Eren Cr MD [address] [facility] [address] [place] [address] Phone: tel: fax: Referral ID Status Reason Start Date Expiration Date V isits Requested Visits Authorized [id number] Closed Specialty Services Required 01/26/2021 02/25/2022 99 99 Encounter Details Date Type Department Care Team (Late st Contact Info) Description 01/30/2021 2:00 PM CDT Lab [facility] Oncology [address] [facility] 7th [place] [address] [place] [address] Neuroendocrine carcinoma (CMS/HCC) (HCC); Malignant neoplasm metastatic to liver (CMS/HCC) (HCC) Social History Tobacco Use Types Packs/Day Years Used Date Smoking Tobacco: Never Smokeless Tobacco: Never Alcohol Use Standard Drinks/Week Comments Yes 1 (1 standard drink = 0.6 oz pur e alcohol) Comments No Sex and Gender Information Value Date Recorded Sex Assigned at Not on file 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 Gender Identity Not on file Sexual Orientation Straight 02/19/2021 9: 29 AM CDT Occupation Industry Job Start Date Job End Date retired Not on file Not on file Not on file documented as of this encounter Plan of Treatment Not on file documented as of this encounter Procedures Procedure Name Priority Date/Time Associated Diagnosis Comments DIFFERENTIAL AUTO Routine 01/30/2021 2:1 0 PM CDT 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) CHROMOGRANIN A Routine 01/30/2021 2:10 PM CDT 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) CBC WITH AUTO DIFFERENTIAL Routine 01/30/2021 2:10 PM CDT 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) VITAMIN D 25 HYDROXY Routine 01/30/2021 2:10 PM CDT 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) PHOSPHORUS Routine 01/30/2021 2:10 PM CDT 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) COMPREHENSIVE METABOLIC PANEL STAT 01/30/2021 2:10 PM CDT 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) documented in this encounter Results * (ABNORMAL) Differential, auto (01/30/2021 2:10 PM CDT) Neutrophil abs 2.0 1.8 - 6.6 K/cumm [facility] Comment:Testing performed by : [facility], [address] [place] [phone] Lymphocyte abs 0.5(L) 1.2 - 3.3 K/cumm [facility] Comment:Testing performed by : [facility], [address] [place] [phone] Monocyte abs 0.5 0.2 - 1.2 K/cumm [facility] Comment:Testing performed by : [facility], [address] [place] [phone] Eosinophil abs 0.2 0.0 - 0.5 K/cumm [facility] Comment:Testing performed by : [facility], [address] [place] [phone] Basophil abs 0.0 0.0 - 0.2 K/cumm [facility] Comment:Testing performed by : [facility], [address] [place] [phone] Neutrophil pct 63.6 % [facility] Comment: Interpretive Data Percent cell count reference ranges are not reported, since discordance with absolute values may lead to misinterpretation of CBC data. Current Interpretive Data was last revised on 2017. Testing performed by: [facility], [address] [place] [phone] Lymphocyte pct 15.4 % [facility] Comment: Interpretive Data Percent cell count reference ranges are not reported, since discordance with absolute values may lead to misinterpretation of CBC data. Current Interpretive Data was last revised on 2017. Testing performed by: [facility], [address] [place] [phone] Monocyte pct 15.1 % [facility] Comment:Testing performed by : [facility], [address] [place] [phone] Eosinophil pct 5.0 % [facility] Comment:Testing performed by : [facility], [address] [place] [phone] Basophil pct 0.9 % [facility] Comment:Testing performed by : [facility], [address] [place] [phone] Blood specimen (specimen) 01/30/2021 2:10 PM CDT 01/30/2021 2:12 PM CDT us Eren Cr MD LAB BLOOD ORDERABLES Final Re sult [facility] [place] [address] * (ABNORMAL) CBC with auto differential (01/30/2021 2:10 PM CDT) WBC 3.1(L) 3.8 - 9.8 K/cumm [facility] Comment:Testing performed by : [address] [phone] Hgb 13.7 12.1 - 15.1 g/dL [facility] Comment:Testing performed by : [facility], [address] [place] [phone] Hct 40.0 36.1 - 44.3 % [facility] Comment:Testing performed by : [address] [phone] Plt 92(L) 140 - 440 K/cumm [facility] Comment:Testing performed by : [address] [phone] MPV 8.2 6.8 - 10.4 fL [facility] Comment:Testing performed by : [address] [phone] RBC 4.34 3.90 - 5.00 M/cumm [facility] Comment:Testing performed by : [address] [phone] MCV 92.1 80.0 - 97.6 fL [facility] Comment:Testing performed by : [address] [phone] MCH 31.6 26.7 - 33.7 pg [facility] Comment:Testing performed by : [facility], [address] [place] [phone] MCHC 34.3 32.7 - 35.5 g/dL [facility] Comment:Testing performed by : [facility], [address] [place] [phone] RDW CV 13.1 11.8 - 14.6 % [facility] Comment:Testing performed by : [facility], [address] [place] [phone] NRBC abs 0.00 0.00 - 0.01 K/cumm [facility] Comment:Testing performed by : [facility], [address] [place] [phone] Blood specimen (specimen) 01/30/2021 2:10 PM CDT 01/30/2021 2:12 PM CDT Eren Cr MD LAB BLOOD ORDERABLES Final Re sult [facility] [place] [address] * (ABNORMAL) Comprehensive metabolic panel (01/30/2021 2:10 PM CDT) Sodium 136 135 - 145 mmol/L [facility] Comment:Testing performed by : [facility], [address] [place] [phone] Potassium, pl 4.5 3.3 - 4.9 mmol/L [facility] Comment:Testing performed by : [facility], [address] [place] [phone] Chloride 103 97 - 110 mmol/L [facility] Comment:Testing performed by : [facility], [address] [place] [phone] CO2 23 22 - 32 mmol/L [facility] Comment:Testing performed by : [facility], [address] [place] [phone] Anion gap 10 2 - 15 mmol/L [facility] Comment:Testing performed by : [facility], [address] [place] [phone] BUN 23 8 - 25 mg/dL [facility] Comment:Testing performed by : [facility], [address] [place] [phone] Creatinine 1.19(H) 0.60 - 1.10 mg/dL [facility] Comment:Testing performed by : [facility], [address] [place] [phone] Glucose 133 70 - 199 mg/dL [facility] Comment: [...] was last revised 2017. Testing performed by: [facility], [address] [place], [place] [phone] Calcium 10.4(H) 8.5 - 10.3 mg/dL [facility] Comment:Testing performed by : [facility], [address] [place] [phone] Bilirubin, total 0.3 0.1 - 1.2 mg/dL [facility] Comment:Testing performed by : [address] [phone] Protein, pl 7.2 6.5 - 8.5 g/dL [facility] Comment:Testing performed by : [facility], [address] [place] [phone] Albumin 4.3 3.5 - 5.0 g/dL [facility] Comment:Testing performed by : [address] [phone] Alk phos 120 40 - 130 Units/L [facility] Comment:Testing performed by : [place] [phone] ALT 28 7 - 45 Units/L [facility] Comment:Testing performed by : [facility], [address] [place] [phone] AST 35 10 - 45 Units/L [facility] Comment:Testing performed by : [facility], [address] [place] [phone] Blood specimen (specimen) 01/30/2021 2:10 PM CDT 01/30/2021 2:12 PM CDT Eren Cr MD LAB BLOOD ORDERABLES Final Re sult [facility] [place] [address] * (ABNORMAL) Chromogranin A (01/30/2021 2:10 PM CDT) Chromogranin A 1181(H) <93 ng/mL [facility] Comment: Impaired renal or hepatic function or treatment with proton pump inhibitors may result in artifactual elevations of Chromogranin A. ADDITIONAL INFORMATION This test was developed and its performance characteristics determined by [facility] in a manner consistent with CLIA requirements. This test has not been cleared or approved by the U.S. Food and Drug Administration. The testing method is a homogeneous time-resolved immunofluorescent assay manufactured by [employer] and performed on the [employer] Kryptor Compact Plus. ? Values obtained with different assay methods or kits may be different and cannot be used interchangeably. ? Test results cannot be interpreted as absolute evidence for the presence or absence of malignant disease. Test Performed by: [facility] - [address] [address] Medical Technicians: Immanuel Novak M.D. Ph.D.; CLIA# [id number] Blood specimen (specimen) 01/30/2021 2:10 PM CDT 01/30/2021 3:40 PM CDT Eren Cr MD LAB BLOOD ORDERABLES Final Re sult Performing Organization Address [facility] [place] [place] [address] * Phosphorus (01/30/2021 2:10 PM CDT) Pathologist [facility] Phosphorus, pl 2.3 2.3 - 4.5 mg/dL [facility] Comment:Testing performed by : [facility], [address] [place] [phone] Blood specimen (specimen) 01/30/2021 2:10 PM CDT 01/30/2021 2:12 PM CDT Eren Cr MD LAB BLOOD ORDERABLES Final Re sult Performing Organization Address [facility] [place] [place] [address] * Vitamin D 25 hydroxy (01/30/2021 2:10 PM CDT) [facility] Vitamin D 25-OH 30 30 - 80 ng/mL [facility] Blood specimen (specimen) 01/30/2021 2:10 PM CDT 01/30/2021 3:10 PM CDT Eren Cr MD LAB BLOOD ORDERABLES Edited R esult - Final Performing Organization Address [facility] [place] [address] documented in this encounter Visit Diagnoses Diagnosis Neuroendocrine carcinoma (HCC) Other malignant neoplasm of unspecified site Malignant neoplasm metastatic to liver (HCC) documented in this encounter Orders Outpatient Referral Count Last Ordered Date Fir st Ordered Date AMB REFERRAL TO ONCOLOGY 01/30/2021 Appointment Requests Count Last Ordered Date Fi rst Ordered Date ONCBCN LAB APPOINTMENT 1 01/30/2021 documented in this encounter Care Teams Client Support Manager Relationship Specialty Start Date End Date Julio César Briseno MD PCP - General 10/01/16 Eren Cr MD Referring Physician Medical Oncology 11/25/18 Yohana Bowen MD Radiation Oncologist Radiation Oncology 11/25/18 Sabrina Willard NP [address] [place] [address] Nurse Practitioner Medical Oncology 08/17/20 11/26/21 documented as of this encounter
--- OUTSIDE RECORDS SUMMARY | 2024-06-25 22:28 | XMS_ITS | Encounter Summary ---
Author Organization [facility] Address [address] [place] [address] Phone Care Team Providers Care E Business Manager Name Role Phone Julio César Briseno MD Primary Care Provider [phone] Eren Cr MD Unavailable Yohana Bowen MD Unavailable Sabrina Willard NP Unavailable [phone] Reason for Referral * Diagnostic Imaging (Routine) - Closed Specialty Diagnoses / Procedures Referred By Contac t Referred To Contact Diagnoses Closed displaced fracture of head of right radius with routine healing, subsequent encounter Procedures XR Elbow Right 2 Views Lu Garcia MD Phone: tel: [facility] Referral ID Status Reason Start Date Expiration Date Visits Re quested Visits Authorized [id number] Closed 02/14/2021 03/16/2022 1 1 Reason for Visit * Reason Comments Fracture Follow-up Encounter Details Date Type Department Care Team (Late st Contact Info) Description 02/15/2021 9:30 AM CDT Office Visit [facility] Orthopaedic Surgery [address] [facility] 6th [place] [address] [place] [address] Lu Garcia MD [address] [place] [address] Closed displaced fracture of head of right [...] on file 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 Denies fevers, chills, wound redness or drainage. Pain: mild. Taking n/a for DVT prophylaxis. Objective: Patient is healthy-appearing and well-groomed, in no apparent distress. Patient is oriented to time, place, and person. Incision healing well, no drainage or erythema; no deformity or crepitation. Range of motion: diminished range with pain. Arm warm and well-perfused, capillary refill <2 seconds. Wrist/Finger flexion/extension and interosseous strength 5/5. Radial/median/ulnar/axillary nerve sensation normal Imaging Radial head fracture healing well in proper alignment. No sign of hardware loosening or breakage. Iindependently reviewed and interpreted this xray and the patient's prior xrays. Assessment: Ms. Chung is a 70 y.o. female who sustained a right side radial head fracture with nonoperative management on 11/20/2020. Plan: 1) Continue WBAT, advance away from cane if possible. 2) Return to clinic in 3 months with repeat radiographs (AP/lateral elbow). 3) Pt no longer taking narcotic pain medication, continue tylenol as needed. 4) DVT prophylaxis discontinued. 5) Call with any questions. 6) Work status: light duty documented in this encounter Plan of Treatment Not on file documented as of this encounter Results * XR Elbow Right 2 Views (02/15/2021 9:39 AM CDT) Anatomical Region Laterality Modality Upper Extremities, Elbow Right Compute d Radiography 02/15/2021 10:4 8 AM CDT Impressions 02/15/2021 10:56 AM CDT 1. Healing, intra-articular right radial head fracture [...] it. Electronically signed by: Bang Walker M.D. Narrative 02/15/2021 10:56 AM CDT EXAMINATION: XR ELBOW RIGHT 2 VIEWS [...] normal. There is unchanged mild olecranon bursitis. ?? Procedure Note Bang Walker MD - 02/15/2021 EXAMINATION: XR ELBOW RIGHT 2 VIEWS HISTORY: [...] normal. There is unchanged mild olecranon bursitis. IMPRESSION: 1. Healing, intra-articular right radial head fracture [...] it. Electronically signed by: Bang Walker M.D. us Lu Garcia MD IMG XR PROCEDURES Final Resu lt documented in this encounter Visit Diagnoses Diagnosis Closed displaced fracture of head of right radius with routine healing, subsequent encounter- Primary Closed displaced fracture of head of right radius with routine healing, subsequent encounter documented in this encounter Care Teams E Business Manager Relationship Specialty Start Date End Date Julio César Briseno MD PCP - General 10/01/16 Eren Cr MD Referring Physician Medical Oncology 11/25/18 Yohana Bowen MD Radiation Oncologist Radiation Oncology 11/25/18 Sabrina Willard NP [address] [place] [address] Nurse Practitioner Medical Oncology 08/17/20 11/26/21 documented as of this encounter
--- OUTSIDE RECORDS SUMMARY | 2024-06-25 22:28 | XMS_ITS | Encounter Summary ---
Author Organization [facility] Address [address] [place] [address] Phone Care Team Providers Care Him Manager Name Role Phone Julio César Briseno MD Primary Care Provider [phone] Eren Cr MD Unavailable Yohana Bowen MD Unavailable Sabrina Willard NP Unavailable [phone] Encounter Details Date Type Department Care Team (Late st Contact Info) Description 01/30/2021 Orders Only [facility] Oncology [address] [facility] Advanced Medicine 7th [place] [address] [place] [id number] Eren Cr MD [address] [facility] [address] [place] [address] Neuro-endocrine carcinoma (CMS/HCC) (HCC) (Primary Dx) Social History Tobacco Use Types Packs/Day Years Used Date Smoking Tobacco: Never Smokeless Tobacco: Never Alcohol Use Standard Drinks/Week Comments Yes 1 (1 standard drink = 0.6 oz pur e alcohol) Comments No Sex and Gender Information Value Date Recorded Sex Assigned at Not on file 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
--- OUTSIDE RECORDS SUMMARY | 2024-06-25 22:28 | XMS_ITS | Encounter Summary ---
Author Organization [facility] Address [address] [place] [address] Care Team Providers Care Technician Semiconductor Development Name Role Phone Julio César Briseno MD Primary Care Provider [phone] Eren Cr MD Unavailable [phone] Yohana Bowen MD Unavailable Sabrina Willard NP Unavailable Reason for Referral * Diagnostic Imaging (Routine) - Closed Specialty Diagnoses / Procedures Referred By Contac t Referred To Contact Diagnoses Closed displaced fracture of head of right radius with routine healing, subsequent encounter Procedures XR Elbow Right 2 Views Lu Garcia MD Phone: tel: [facility] Referral ID Status Reason Start Date Expiration Date Visits Re quested Visits Authorized [id number] Closed 12/29/2020 01/28/2022 1 1 Reason for Visit * Diagnostic Imaging (Routine) - Closed Specialty Diagnoses / Procedures Referred By Contac t Referred To Contact Diagnoses Closed displaced fracture of head of right radius with routine healing, subsequent encounter Procedures XR Elbow Right 2 Views Lu Garcia MD Phone: tel: [facility] Referral ID Status Reason Start Date Expiration Date Visits Re quested Visits Authorized [id number] Closed 12/29/2020 01/28/2022 1 1 Encounter Details Date Type Department Care Team (Latest Contact Info) Description 01/04/2021 12:35 PM CDT - 01/04/2021 11:59 PM CDT Hospital Encounter 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 Gender Identity Not on file Sexual [...] :supplement Take 1 tablet by mouth early childhood worker before breakfast 07/04/2016 4 cholecalciferol (VITAMIN D-3) 2,000 unit capsule Take 1 capsule (2,000 Units total) by mouth daily 30 capsule 2 04/25/2019 3 cholestyramine (QUESTRAN) 4 gram packet Take 1 packet by mouth 3 (three) times a day with meals 270 packet 3 09/04/2019 2 clotrimazole-betam ethasone (LOTRISONE) cream Apply 1 Application topically daily as needed (rash) 4 coenzyme [id number] 100-5 mg-unit capsuleIndications :supplement Take 1 tablet by mouth early childhood worker before breakfast 4 denosumab (XGEVA) 120 mg/1.7 [...] Name Priority Date/Time Associated Diagnosis Comments XR ELBOW RIGHT 2 OR MORE VIEWS Routine 01/04/2021 12:41 PM CDT Closed displaced fracture of head of right radius with routine healing, subsequent encounter documented in this encounter Results * XR Elbow Right [...] encounter documented in this encounter Care Teams Technician Semiconductor Development Relationship Specialty Start Date End Date Julio César Briseno MD PCP - General 10/01/16 Eren Cr MD Referring Physician Medical Oncology 11/25/18 Yohana Bowen MD Radiation Oncologist Radiation Oncology 11/25/18 Sabrina Willrad NP [address] [place] [address] Nurse Practitioner Medical Oncology 08/17/20 11/26/21 documented as of this encounter
--- OUTSIDE RECORDS SUMMARY | 2024-06-25 22:28 | XMS_ITS | Encounter Summary ---
Author Organization [facility] Address [address] [place] [address] Care Team Providers Care Hand Alterations Seamstress Name Role Phone Julio César Briseno MD Primary Care Provider [phone] Eren Cr MD Unavailable [phone] Yohana Bowen MD Unavailable Sabrina Willard NP Unavailable [phone] Reason for Referral * Diagnostic Imaging (Routine) - Closed Specialty Diagnoses / Procedures Referred By Contac t Referred To Contact Diagnoses Closed displaced fracture of head of right radius with routine healing, subsequent encounter Procedures XR Elbow Right 2 Views Lu Garcia MD Phone: tel: [facility] Referral ID Status Reason Start Date Expiration Date Visits Re quested Visits Authorized [id number] Closed 02/14/2021 03/16/2022 1 1 Reason for Visit * Diagnostic Imaging (Routine) - Closed Specialty Diagnoses / Procedures Referred By Contac t Referred To Contact Diagnoses Closed displaced fracture of head of right radius with routine healing, subsequent encounter Procedures XR Elbow Right 2 Views Lu Garcia MD Phone: tel: [facility] Referral ID Status Reason Start Date Expiration Date Visits Re quested Visits Authorized [id number] Closed 02/14/2021 03/16/2022 1 1 Encounter Details Date Type Department Care Team (Latest Contact Info) Description 02/15/2021 9:30 AM CDT - 02/15/2021 11:59 PM CDT Hospital Encounter [facility] [address] [place] [address] Lu Garcia MD [address] [place] [address] Closed displaced fracture of head of right [...] on file 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 11/23/2020 [facility] has col[facility] and needs Cavilon 3M skin barrier film to manage. 20 each 6 09/21/2019 simvastatin (ZOCOR) 20 mg tablet Take 1 tablet (20 mg total) by mouth nightly ascorbic acid, vitamin C, 500 mg capsuleIndications :supplement Take 1 tablet by mouth territory supervisor before breakfast 07/04/2016 4 cholecalciferol (VITAMIN D-3) 2,000 unit capsule Take 1 capsule (2,000 Units total) by mouth daily 30 capsule 2 04/25/2019 3 cholestyramine (QUESTRAN) 4 gram packet Take 1 packet by mouth 3 (three) times a day with meals 270 packet 3 09/04/2019 2 clotrimazole-betam ethasone (LOTRISONE) cream Apply 1 Application topically daily as needed (rash) 4 coenzyme [id number] E 100-5 mg-unit capsuleIndications :supplement Take 1 tablet by mouth territory supervisor before breakfast 4 denosumab (XGEVA) 120 mg/1.7 [...] ELBOW RIGHT 2 OR MORE VIEWS Routine 02/15/2021 9:39 AM CDT Closed displaced fracture of head of [...] it. Electronically signed by: Bang Walker M.D. Lu Garcia MD IMG XR PROCEDURES Final Resu lt documented in this encounter Visit Diagnoses Diagnosis Closed displaced fracture of head of right radius with routine healing, subsequent encounter documented in this encounter Care Teams Hand Alterations Seamstress Relationship Specialty Start Date End Date Julio César Briseno MD PCP - General 10/01/16 Eren Cr MD Referring Physician Medical Oncology 11/25/18 Yohana Bowen MD Radiation Oncologist Radiation Oncology 11/25/18 Sabrina Willard NP [address] [place] [address] Nurse Practitioner Medical Oncology 08/17/20 11/26/21 documented as of this encounter
--- OUTSIDE RECORDS SUMMARY | 2024-06-25 22:28 | XMS_ITS | Encounter Summary ---
Author Organization [facility] Address [address] [place] [address] Phone Care Team Providers Care Liquid Loader Name Role Phone Julio César Briseno MD Primary Care Provider Eren Cr MD Unavailable [phone] Yohana Bowen MD Unavailable Sabrina Willard NP Unavailable [phone] Encounter Details Date Type Department Care Team (Late st Contact Info) Description 01/30/2021 5:00 PM CDT Infusion [facility] Oncology [address] [facility] 7th [place] [id number] Social History Tobacco Use Types Packs/Day Years Used Date Smoking Tobacco: Never Smokeless Tobacco: Never Alcohol Use Standard Drinks/Week Comments Yes 1 (1 standard drink = 0.6 oz pur e alcohol) Comments No Sex and Gender Information Value Date Recorded Sex Assigned at Not on file 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 documented in this encounter Plan of Treatment Not on file documented as of this encounter Visit Diagnoses Not on filedocumented in this encounter Care Teams Liquid Loader Relationship Specialty Start Date End Date Julio César Briseno MD PCP - General 10/01/16 Eren Cr MD Referring Physician Medical Oncology 11/25/18 Yohana Bowen MD Radiation Oncologist Radiation Oncology 11/25/18 Sabrina Willard NP [address] [place] [address] Nurse Practitioner Medical Oncology 08/17/20 11/26/21 documented as of this encounter
--- OUTSIDE RECORDS SUMMARY | 2024-06-25 22:28 | XMS_ITS | Encounter Summary ---
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 [address] [facility] Advanced Medicine 7th [place] [address] Phone: tel: Referral ID Status Reason Start Date Expiration Date V isits Requested Visits Authorized [id number] Authorized 03/02/2019 10/06/2024 1 60 Encounter Details Date Type Department Care Team (Latest Contact Info) Description 02/20/2021 1:13 PM CDT - 02/20/2021 3:53 PM CDT Hospital Encounter 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 Gender Identity Not on file Sexual Orientation Straight 02/19/2021 9: 29 AM CDT Occupation Industry Job Start Date Job End Date retired Not on file Not on file Not on file documented as of this encounter Last Filed Vital Signs Vital Sign Reading Time Taken Comments Blood Pressure 137/60 02/20/2021 3:37 PM CDT Pulse 74 02/20/2021 3:37 PM CDT Temperature 36.8 ??C (98.2 ??F) 02/20/2021 3:37 PM CD T Respiratory Rate 18 02/20/2021 3:37 PM CDT Oxygen Saturation 99% 02/20/2021 3:37 PM CDT Inhaled Oxygen Concentration - - Weight 82.8 kg (182 lb 8 oz) 02/20/2021 2:39 PM CDT Height - - Body Mass Index 32.33 02/16/2021 2:43 PM CDT documented in this encounter Discharge Diagnoses Diagnosis Encounter for antineoplastic immunotherapy - ENCOUNTER FOR ANTINEOPLASTIC IMMUNOTHERAPY Secondary malignant neoplasm of bone (CMS/HCC) (HCC) - SECONDARY MALIGNANT NEOPLASM OF BONE documented in this encounter Discharge Instructions * Patient Instructions* Denisha Raymundo RN - 02/20/2021 3:35 PM CDT .After 4:30 PM during the week, on weekends and holidays, call [phone] and ask to have the Lockstitch Cup Setter Physician paged for you. Saturday through Saturday, 8 AM to 4:30 PM, call [phone] [facility] Oncology Physician at [facility] and ask for a member of [...] capsuleIndications :supplement Take 1 tablet by mouth clerk checker before breakfast 07/04/2016 4 cholecalciferol (VITAMIN D-3) 2,000 unit capsule Take 1 capsule (2,000 Units total) by mouth daily 30 capsule 2 04/25/2019 3 cholestyramine (QUESTRAN) 4 gram packet Take 1 packet by mouth 3 (three) times a day with meals 270 packet 3 09/04/2019 2 clotrimazole-betam ethasone (LOTRISONE) cream Apply 1 Application topically daily as needed (rash) 4 coenzyme [id number] 100-5 mg-unit capsuleIndications :supplement Take 1 tablet by mouth clerk checker before breakfast 4 denosumab (XGEVA) 120 mg/1.7 [...] Nursing Notes * Denisha Raymundo RN - 02/20/2021 3:50 PM CDT Patient received fluid. Patient denied light headache when she got up. Called and updated the result with Sola. She was ok for patient to go home. Patient tolerated treatment well. Discharge instruction was given to patient . Discharged in stable condition. * Denisha Raymundo RN - 02/20/2021 1:48 PM CDT Pt arrived to [facility] for labs prior to IV fluid, accompanied by. Reviewed todays plan of care with thepatient and is agreeable with this plan. Pt is sitting in the chair / bed in comfortable position. documented in this encounter Plan of Treatment Not on file documented as of this encounter Procedures Procedure Name Priority Date/Time Associated Diagnosis Comments EGFR Routine 02/20/2021 1:37 PM CDT Neuroendocrine carcinoma (CMS/HCC) (HCC) Diarrhea, unspecified type DIFFERENTIAL AUTO Routine 02/20/2021 1:3 7 PM CDT Neuroendocrine carcinoma (CMS/HCC) (HCC) Diarrhea, unspecified type CBC WITH AUTO DIFFERENTIAL Routine 02/20/2021 1:37 PM CDT Neuroendocrine carcinoma (CMS/HCC) (HCC) Diarrhea, unspecified type COMPREHENSIVE METABOLIC PANEL Routine 02/20/2021 1:37 PM CDT Neuroendocrine carcinoma (CMS/HCC) (HCC) Diarrhea, unspecified type documented in this encounter Results * (ABNORMAL) eGFR (02/20/2021 1:37 PM CDT) [facility] eGFR 57(L) 90 - 130 mL/min/1.7 3 m2 [facility] Comment: Interpretive Data Reference Interval Normal [...] Current interpretive data was last reviewed 2020 Blood 02/20/2021 1:37 PM CDT 02/20/2021 2:13 PM CDT us Eren Cr MD LAB BLOOD ORDERABLES Final Re sult [facility] Department [place] [address] * (ABNORMAL) Differential, auto (02/20/2021 1:37 PM CDT) Neutrophil abs 1.6(L) 1.7 - 6.5 K/cumm [facility] Imm gran abs 0.0 0.0 - 0.1 K/cumm [facility] Lymphocyte abs 0.2(L) 0.8 - 3.3 K/cumm [facility] Monocyte abs 0.6 0.2 - 0.8 K/cumm [facility] Eosinophil abs 0.1 0.0 - 0.5 K/cumm [facility] Basophil abs 0.0 0.0 - 0.1 K/cumm [facility] Neutrophil pct 64.3 % [facility] Comment: Interpretive Data Percent cell count reference ranges are not reported, since discordance with absolute values may lead to misinterpretation of CBC data. Current Interpretive Data was last revised on 2017. Imm gran pct 0.4 % [facility] Comment: Interpretive Data Percent cell count reference ranges are not reported, since discordance with absolute values may lead to misinterpretation of CBC data. Current Interpretive Data was last revised on 2017. Lymphocyte pct 9.1 % [facility] Comment: Interpretive Data Percent cell count reference ranges are not reported, since discordance with absolute values may lead to misinterpretation of CBC data. Current Interpretive Data was last revised on 2017. Monocyte pct 22.2 % [facility] Comment: Interpretive Data Percent cell count reference ranges are not reported, since discordance with absolute values may lead to misinterpretation of CBC data. Current Interpretive Data was last revised on 2017. Eosinophil pct 3.2 % [facility] Comment: Interpretive Data Percent cell count reference ranges are not reported, since discordance with absolute values may lead to misinterpretation of CBC data. Current Interpretive Data was last revised on 2017. Basophil pct 0.8 % [facility] Comment: Interpretive Data Percent cell count reference ranges are not reported, since discordance with absolute values may lead to misinterpretation of CBC data. Current Interpretive Data was last revised on 2017. Blood 02/20/2021 1:37 PM CDT 02/20/2021 2:13 PM CDT us Eren Cr MD LAB BLOOD ORDERABLES Final Re sult [facility] Department [place] [address] * (ABNORMAL) CBC with auto differential (02/20/2021 1:37 PM CDT) WBC 2.5(L) 3.8 - 9.9 K/cumm [facility] Hgb 11.6(L) 11.9 - 15.5 g/dL [facility] Hct 33.9(L) 35.6 - 45.5 % [facility] Plt 100(L) 150 - 400 K/cumm [facility] MPV 10.4 9.1 - 12.3 fL [facility] RBC 3.88(L) 3.90 - 5.20 M/cumm [facility] MCV 87.4 81.3 - 96.4 fL [facility] MCH 29.9 27.1 - 33.3 pg [facility] MCHC 34.2 32.3 - 35.7 g/dL [facility] RDW CV 12.4 11.1 - 14.9 % [facility] RDW SD 39.5 35.7 - 48.1 fL [facility] NRBC abs 0.00 0.00 - 0.01 K/cumm [facility] Blood 02/20/2021 1:37 PM CDT 02/20/2021 2:13 PM CDT Eren Cr MD LAB BLOOD ORDERABLES Final Re sult [facility] Department [place] [address] * (ABNORMAL) Comprehensive metabolic panel (02/20/2021 1:37 PM CDT) Sodium 141 135 - 145 mmol/L [facility] Potassium, pl 3.8 3.3 - 4.9 mmol/L [facility] Comment:Hemolyzed; Potassium value may be falsely elevated by as much as 0.3-0.5 mmol/L. Suggest redraw and reanalysis. Chloride 107 97 - 110 mmol/L [facility] CO2 25 22 - 32 mmol/L [facility] Anion gap 9 2 - 15 mmol/L [facility] BUN 16 8 - 25 mg/dL [facility] Creatinine 0.99 0.60 - 1.10 mg/dL [facility] Glucose 141 70 - 199 mg/dL [facility] Comment: Interpretive Data Fasting [...] 2017. Calcium 9.9 8.5 - 10.3 mg/dL [facility] Bilirubin, total 0.3 0.1 - 1.2 mg/dL [facility] Protein, pl 6.7 6.5 - 8.5 g/dL [facility] Albumin 4.0 3.5 - 5.0 g/dL [facility] Alk phos 140(H) 40 - 130 Units/L [facility] ALT 42 7 - 45 Units/L [facility] AST 46(H) 10 - 45 Units/L [facility] Comment:Hemolyzed; result ma y be falsely elevated Blood 02/20/2021 1:37 PM CDT 02/20/2021 2:13 PM CDT Eren Cr MD LAB BLOOD ORDERABLES Final Re sult [facility] Department [place] [address] documented in this encounter Visit Diagnoses Diagnosis Bone metastasis- Primary Secondary malignant neoplasm of bone and bone marrow Neuro-endocrine carcinoma (HCC) Other malignant neoplasm of unspecified site Neuroendocrine carcinoma (HCC) Other malignant neoplasm of unspecified site Diarrhea, unspecified type documented in this encounter Administered Medications Inactive Administered Medications - up to 3 most recent administrations Medication Order MAR Action Action Date Dose Rate Site sodium chloride 0.9% bolus 1,000 mL 1,000 mL, intravenous, at 500 mL/hr, Administer over 2 Hours, Once, On 02/20/21 at 1400, For 1 doseIndications:Bone metastasis,Neuro-endocrine carcinoma (HCC) New Bag 02/20/2021 1:36 PM CDT 1,000 mL 500 mL/hr documented in this encounter Active and Recently Administered Medications Times are shown in CDT. Scheduled Medication Order 02/18/2021 02/19/2021 02/20/2021 sodium chloride 0.9% bolus 1,000 mL (COMPLETED) 1,000 mL, intravenous, at 500 mL/hr, Administer over 2 Hours, Once, On 02/20/21 at 1400, For 1 dose 1336 (New Bag - Prov ider: Denisha Raymundo, IRVING)1538 (Stopped - Provider: Denisha Raymundo RN) documented in this encounter Orders Medications Ordered That Brett ht Not Have Been Administered Count Last Ordered Date First Ordered Date sodium chloride 0.9% bolus 1,000 mL 1 02/20 documented in this encounter Care Teams Speech Language Specialist Relationship Specialty Start Date End Date Julio César Briseno MD PCP - General 10/01/16 Eren Cr MD Referring Physician Medical Oncology 11/25/18 Yohana Bowen MD Radiation Oncologist Radiation Oncology 11/25/18 Sabrina Willard NP [address] [place] [address] Nurse Practitioner Medical Oncology 08/17/20 11/26/21 documented as of this encounter
--- OUTSIDE RECORDS SUMMARY | 2024-06-25 22:28 | XMS_ITS | Encounter Summary ---
Author Organization [facility] Address [address] [place] [address] Phone Care Team Providers Care Kitchenwhere Maker Name Role Phone Julio César Briseno MD Primary Care Provider Eren Cr MD Unavailable [phone] Yohana Bowen MD Unavailable Sabrina Willard NP Unavailable [phone] Reason for Visit * Reason Onset Date Comments medication follow up 01/25/2021 Encounter Details Date Type Department Care Team (Late st Contact Info) Description 01/25/[address] 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 Patient states she received the medication and stated taking Afinitor on Saturday01/20/21. Patient reports no side effectsfrom medication. She does report she is having a down day today with a headache and some stomach pain and is resting. No fevers, no nausea/vomiting. Feels this may be sinus related. She will contact me back if symptoms do not improve. documented in this encounter Plan of Treatment Not on file documented as of this encounter Visit Diagnoses Not on filedocumented in this encounter Care Teams Kitchenwhere Maker Relationship Specialty Start Date End Date Julio César Briseno MD PCP - General 10/01/16 Eren Cr MD Referring Physician Medical Oncology 11/25/18 Yohana Bowen MD Radiation Oncologist Radiation Oncology 11/25/18 Sabrina Willard NP [address] [place] [address] Nurse Practitioner Medical Oncology 08/17/20 11/26/21 documented as of this encounter
--- OUTSIDE RECORDS SUMMARY | 2024-06-25 22:28 | XMS_ITS | Encounter Summary ---
Author Organization [facility] Address [address] [place] [address] Phone Care Team Providers Care Lead Miner Blasting Name Role Phone Julio César Briseno MD Primary Care Provider Eren Cr MD Unavailable [phone] Yohana Bowen MD Unavailable Sabrina Willard NP Unavailable [phone] Encounter Details Date Type Department Care Team (Late st Contact Info) Description 02/06/2021 1:30 PM CDT Lab 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 Gender Identity Not on file Sexual Orientation Straight 02/19/2021 9: 29 AM CDT Occupation Industry Job Start Date Job End Date retired Not on file Not on file Not on file documented as of this encounter Plan of Treatment Not on file documented as of this encounter Procedures Procedure Name Priority Date/Time Associated Diagnosis Comments COMPREHENSIVE METABOLIC PANEL Routine 02/06/2021 1:45 PM CDT 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) Bone metastasis (CMS/HCC) (HCC) documented in this encounter Results * (ABNORMAL) Comprehensive metabolic panel (02/06/2021 1:45 PM CDT) Sodium 138 135 - 145 mmol/L [facility] Comment:Testing performed by : [facility], [address] [place] [phone] Potassium, pl 4.1 3.3 - 4.9 mmol/L [facility] Comment:Testing performed by : [facility], [address] [place] [phone] Chloride 105 97 - 110 mmol/L [facility] Comment:Testing performed by : [facility], [address] [place] [phone] CO2 28 22 - 32 mmol/L [facility] Comment:Testing performed by : [address] [phone] Anion gap 5 2 - 15 mmol/L [facility] Comment:Testing performed by : [address] [phone] BUN 10 8 - 25 mg/dL [facility] Comment:Testing performed by : [facility], [address] [place] [phone] Creatinine 0.83 0.60 - 1.10 mg/dL [facility] Comment:Testing performed by : [facility], [address] [place] [phone] Glucose 131 70 - 199 mg/dL [facility] [...] was last revised 2017. Testing performed by: [facility], [address] [place] [phone] Calcium 10.7(H) 8.5 - 10.3 mg/dL [facility] Comment:Testing performed by : [facility], [address] [place] [phone] Bilirubin, total 0.4 0.1 - 1.2 mg/dL [facility] Comment:Testing performed by : [facility], [address] [place] [phone] Protein, pl 6.6 6.5 - 8.5 g/dL [facility] Comment:Testing performed by : [facility], [address] [place] [phone] Albumin 4.0 3.5 - 5.0 g/dL [facility] Comment:Testing performed by : [facility], [address] [place] [phone] Alk phos 148(H) 40 - 130 Units/L [facility] Comment:Testing performed by : [facility], [address] [place] [phone] ALT 31 7 - 45 Units/L [facility] Comment:Testing performed by : [facility], [address] [place] [phone] AST 35 10 - 45 Units/L [facility] Comment:Testing performed by : [facility], [address] [place] [phone] Blood specimen (specimen) 02/06/2021 1:45 PM CDT 02/06/2021 1:46 PM CDT Eren Cr MD LAB BLOOD ORDERABLES Final Re sult [facility] Department [place] [address] documented in this encounter Visit Diagnoses Diagnosis Neuroendocrine carcinoma (HCC) Other malignant neoplasm of unspecified site Malignant neoplasm metastatic to liver (HCC) Bone metastasis Secondary malignant neoplasm of bone and bone marrow documented in this encounter Orders Appointment Requests Count Last Ordered Date Fi rst Ordered Date ONCBCN LAB APPOINTMENT 1 02/06/2021 documented in this encounter Care Teams Lead Miner Blasting Relationship Specialty Start Date End Date Julio César Briseno MD PCP - General 10/01/16 Eren Cr MD Referring Physician Medical Oncology 11/25/18 Yohana Bowen MD Radiation Oncologist Radiation Oncology 11/25/18 Sabrina Willard NP [address] [place] [address] Nurse Practitioner Medical Oncology 08/17/20 11/26/21 documented as of this encounter
--- OUTSIDE RECORDS SUMMARY | 2024-06-25 22:29 | XMS_ITS | Encounter Summary ---
Author Organization [facility] Healthcare Address [address] [place] [address] Care Team Providers Care Senior Safety Management Consultant Name Role Phone Julio César Briseno MD Primary Care Provider [phone] Eren Cr MD Unavailable [phone] Yohana Bowen MD Unavailable Sabrina Willard NP Unavailable [phone] Encounter Details Date Type Department Care Team (Latest Contact Info) Description 11/20/2020 1:39 PM CDT - 11/20/2020 11:59 PM CDT Hospital Encounter 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 20 each 6 09/21/2019 simvastatin (ZOCOR) 20 mg tablet Take 1 tablet (20 mg total) by mouth nightly ascorbic acid, vitamin C, 500 mg capsuleIndications :supplement Take 1 tablet by mouth infantry operations specialist before breakfast 07/04/2016 4 cholecalciferol (VITAMIN D-3) 2,000 unit capsule Take 1 capsule (2,000 Units total) by mouth daily 30 capsule 2 04/25/2019 3 cholestyramine (QUESTRAN) 4 gram packet Take 1 packet by mouth 3 (three) times a day with meals 270 packet 3 09/04/2019 2 clotrimazole-betam ethasone (LOTRISONE) cream Apply 1 Application topically daily as needed (rash) 4 coenzyme [id number] 100-5 mg-unit capsuleIndications :supplement Take 1 tablet by mouth infantry operations specialist before breakfast 4 denosumab (XGEVA) 120 mg/1.7 [...] Name Priority Date/Time Associated Diagnosis Comments XR TRANSFER OF OUTSIDE FILMS ED 11/20/2020 1:39 PM CDT documented in this encounter Results * XR Outside Reference (11/20/2020 1:39 PM CDT) Impressions [facility] - 11/20/2020 1:39 PM CDT These images are for Reference purposes only and have not been reviewed by [facility] Radiology. ??There will be no report generated by a [facility] Radiologist. Narrative [facility] - 11/20/2020 1:39 PM CDT EXAMINATION: ??Images For Reference Purposes Only us Immanuel Goldstein MD IMG XR PROCEDURES Final Result [facility] documented in this encounter Visit Diagnoses Not on filedocumented in this encounter Care Teams Senior Safety Management Consultant Relationship Specialty Start Date End Date Julio César Briseno MD PCP - General 10/01/16 Eren Cr MD Referring Physician Medical Oncology 11/25/18 Yohana Bowen MD Radiation Oncologist Radiation Oncology 11/25/18 Sabrina Willard NP [address] [place] [address] Nurse Practitioner Medical Oncology 08/17/20 11/26/21 documented as of this encounter
--- OUTSIDE RECORDS SUMMARY | 2024-06-25 22:29 | XMS_ITS | Encounter Summary ---
Author Organization [facility] Address [address] [place] [address] Phone Care Team Providers Care Assessment Rn Name Role Phone Julio César Briseno MD Primary Care Provider [phone] Eren Cr MD Unavailable [phone] Yohana Bowen MD Unavailable Sabrina Willard NP Unavailable [phone] Reason for Referral * MRI/CAT/PET Scan (Routine) - Closed Specialty Diagnoses / Procedures Referred By Contac t Referred To Contact Radiology Diagnoses Neuroendocrine carcinoma (HCC) Procedures PET/CT Dotatate Skull to Thigh Eren Cr MD [address] [place] [address] Phone: tel: fax: [address] [address] Referral ID Status Reason Start Date Expiration Date Visits Re quested Visits Authorized [id number] Closed 12/09/2020 01/08/2022 1 1 Encounter Details Date Type Department Care Team (Late st Contact Info) Description 12/09/2020 Orders Only [facility] Oncology [address] [facility] 7[address] [place] [address] [place] [address] Eren Cr MD [address] [place] [address] Neuroendocrine carcinoma (CMS/HCC) (Primary Dx) Social History Tobacco Use Types Packs/Day Years Used Date Smoking Tobacco: Never Smokeless Tobacco: Never Alcohol Use Standard Drinks/Week Comments Yes 1 (1 standard drink = 0.6 oz pur e alcohol) Comments No Sex and Gender Information Value Date Recorded Sex Assigned at Not on file 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 ??Interval progression of metastatic neuroendocrine tumor with at least three new hepatic lesions, one new retroperitoneal nodule and new sites of osseous disease, compatible with overall disease progression. 2. Stable pulmonary nodules and areas of tracer uptake. ?? Dictated by: Christophe Retana M.D. The radiology attending physician has personally reviewed this study, and had reviewed and/or edited this written report and agrees with it. Electronically signed by: Loretta English M.D. Narrative 12/27/2020 9:45 PM CDT EXAMINATION: Ga-68 ??DOTATATE -PET/CT IMAGING DATE OF STUDY: ??12/27/2020 SCANNER: mCT RADIOPHARMACEUTICAL: 4.7 mCi Ga-68 ??DOTATATE i.v. ??Injection site: Right antecubital fossa. 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 Status post Lutathera therapy completed 08/05/2019. ??He is being treated with Denosumab and octreotide started 11/03/2017. ??The study is requested for treatment monitoring during therapy. Subsequent treatment strategy. TECHNIQUE: ??After intravenous administration of the radiopharmaceutical, noncontrast CT images were obtained for attenuation correction and for fusion with emission PET images to allow for anatomical localization of PET findings. ??Emission PET images were then obtained. ??The study was interpreted on the [employer] workstation. ?? Scanned area: skull vertex to the proximal thighs; the time from injection of tracer to start of imaging for this scan position was 51 minutes. COMPARISON: PET/CT Dotatate 01/25/2020. FINDINGS: There has been interval progression of the tracer avid hepatic metastatic disease reflected by increased in size and extent of previously noted lesions and development of at least three new hepatic lesion. ??For instance: - Markedly tracer avid hepatic segment 3 lesion now measures 2.5 x 1.8 cm, previously only mildly tracer avid measuring1.0 x 1.1 cm, image 177/391. - New marked tracer avidity in hepatic dome behind the superior vena cava at image 170/[address] correlate. - New tracer avid focus in hepatic segment 6 at image 190/391. - New small focus of mild tracer avidity and lateral left lobe of liver (mot lateral lesion on image 199/391). There is redemonstration of multiple tracer avid retroperitoneal nodules with at least one new tracer-avid nodule at image 250/391 directly inferior to the surgical clip that approximately measures 1 x 0.8 cm. Redemonstrated peritoneal and pelvic nodules. Redemonstration of moderate tracer avid lesion along the right vaginal cuff, image 312/391. Unchanged mildly tracer avid foci in the lungs, and small pulmonary nodules. ??Note that not all areas of tracer uptake correlate to discrete nodules, but findings are generally stable. For example, left apical pulmonary nodule with possible mild tracer avidity at image 102/391 measures approximately 0.6 cm. There is new and progressive osseous metastatic disease involving left humerus, C7 vertebral body, left side of L1 vertebral body and right acetabulum. ??For reference: Left proximal humeral lesion is more extensive as compared to the prior study, image 68/391. ??New focus of tracer avidity at left side of L1 vertebral body, image 290/391. ??New foci of tracer avidity in anterior and posterior right acetabulum. ?? Additional CT findings: Mild to moderate atherosclerotic aortic calcifications. ??Small hiatal hernia. ??Right renal cyst. Postsurgical changes of ileal resection and ileostomy formation. Cholecystectomy. ??Unchanged periurethral hyperdensities. ??Multilevel degenerative spinal changes. ??Hysterectomy Procedure Note Loretta English MD - 12/27/2020 EXAMINATION: Ga-68 DOTATATE -PET/CT IMAGING DATE OF STUDY: 12/27/2020 SCANNER: mCT RADIOPHARMACEUTICAL: 4.7 mCi Ga-68 DOTATATE i.v. Injection site: Right antecubital fossa. 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 Status post Lutathera therapy completed 08/05/2019. He is being treated with Denosumab and octreotide started 11/03/2017. The study is requested for treatment monitoring during therapy. Subsequent treatment strategy. TECHNIQUE: After intravenous administration of the radiopharmaceutical, noncontrast CT images were obtained for attenuation correction and for fusion with emission PET images to allow for anatomical localization of PET findings. Emission PET images were then obtained. The study was interpreted on the [employer] workstation. Scanned area: skull vertex to the proximal thighs; the time from injection of tracer to start of imaging for this scan position was 51 minutes. COMPARISON: PET/CT Dotatate 01/25/2020. FINDINGS: There has been interval progression of the tracer avid hepatic metastatic disease reflected by increased in size and extent of previously noted lesions and development of at least three new hepatic lesion. For instance: - Markedly tracer avid hepatic segment 3 lesion now measures 2.5 x 1.8 cm, previously only mildly tracer avid measuring1.0 x 1.1 cm, image 177/391. - New marked tracer avidity in hepatic dome behind the superior vena cava at image 170/[address] correlate. - New tracer avid focus in hepatic segment 6 at image 190/391. - New small focus of mild tracer avidity and lateral left lobe of liver (mot lateral lesion on image 199/391). There is redemonstration of multiple tracer avid retroperitoneal nodules with at least one new tracer-avid nodule at image 250/391 directly inferior to the surgical clip that approximately measures 1 x 0.8 cm. Redemonstrated peritoneal and pelvic nodules. Redemonstration of moderate tracer avid lesion along the right vaginal cuff, image 312/391. Unchanged mildly tracer avid foci in the lungs, and small pulmonary nodules. Note that not all areas of tracer uptake correlate to discrete nodules, but findings are generally stable. For example, left apical pulmonary nodule with possible mild tracer avidity at image 102/391 measures approximately 0.6 cm. There is new and progressive osseous metastatic disease involving left humerus, C7 vertebral body, left side of L1 vertebral body and right acetabulum. For reference: Left proximal humeral lesion is more extensive as compared to the prior study, image 68/391. New focus of tracer avidity at left side of L1 vertebral body, image 290/391. New foci of tracer avidity in anterior and posterior right acetabulum. Additional CT findings: Mild to moderate atherosclerotic aortic calcifications. Small hiatal hernia. Right renal cyst. Postsurgical changes of ileal resection and ileostomy formation. Cholecystectomy. Unchanged periurethral hyperdensities. Multilevel degenerative spinal changes. Hysterectomy IMPRESSION: 1. Interval progression of metastatic neuroendocrine tumor with at least three new hepatic lesions, one new retroperitoneal nodule and new sites of osseous disease, compatible with overall disease progression. 2. Stable pulmonary nodules and areas of tracer uptake. Dictated by: Christophe Retana M.D. The radiology attending physician has personally reviewed this study, and had reviewed and/or edited this written report and agrees with it. Electronically signed by: Loretta English M.D. Eren Cr MD IM PET PROCEDURES Final Resu lt documented in this encounter Visit Diagnoses Diagnosis Neuroendocrine carcinoma (HCC)- Primary Other malignant neoplasm of unspecified site Neuroendocrine carcinoma (HCC) Other malignant neoplasm of unspecified site documented in this encounter Care Teams Assessment Rn Relationship Specialty Start Date End Date Julio César Briseno MD PCP - General 10/01/16 Eren Cr MD Referring Physician Medical Oncology 11/25/18 Yohana Bowen MD Radiation Oncologist Radiation Oncology 11/25/18 Sabrina Willard NP [address] [place] [address] Nurse Practitioner Medical Oncology 08/17/20 11/26/21 documented as of this encounter
--- OUTSIDE RECORDS SUMMARY | 2024-06-25 22:29 | XMS_ITS | Encounter Summary ---
Author Organization [facility] Address [address] [place] [address] Phone Care Team Providers Care Pipeline Superintendent Division Name Role Phone Julio César Briseno MD Primary Care Provider [phone] Eren Cr MD Unavailable [phone] Yohana Bowen MD Unavailable Sabrina Willard NP Unavailable Encounter Details Date Type Department Care Team (Late st Contact Info) Description 11/09/2020 Orders Only [facility] Oncology [address] [facility] 7[address] [place] [address] [place] [address] Eren Cr MD [address] [facility] [address] [place] [address] Social History Tobacco Use Types Packs/Day Years Used Date Smoking Tobacco: Never Smokeless Tobacco: Never Alcohol Use Standard Drinks/Week Comments Yes 1 (1 standard drink = 0.6 oz pur e alcohol) Comments No Sex and Gender Information Value Date Recorded Sex Assigned at Not on file 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 Gender Identity Not on file Sexual Orientation Straight 02/19/2021 9: 29 AM CDT Occupation Industry Job Start Date Job End Date retired Not on file Not on file Not on file documented as of this encounter Plan of Treatment Not on file documented as of this encounter Visit Diagnoses Not on filedocumented in this encounter Care Teams Pipeline Superintendent Division Relationship Specialty Start Date End Date Julio César Briseno MD PCP - General 10/01/16 Eren Cr MD Referring Physician Medical Oncology 11/25/18 Yohana Bowen MD Radiation Oncologist Radiation Oncology 11/25/18 Sabrina Willard NP [address] [place] [address] Nurse Practitioner Medical Oncology 08/17/20 11/26/21 documented as of this encounter
--- OUTSIDE RECORDS SUMMARY | 2024-06-25 22:29 | XMS_ITS | Encounter Summary ---
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) Procedures CT soft tissue neck with contrast Eren Cr MD [id number] [place] [address] Phone: tel: fax: [address] [phone] Referral ID Status Reason Start Date Expiration Date Visits Re quested Visits Authorized [id number] Closed 08/15/2020 09/14/2021 1 1 * MRI/CAT/PET Scan (Routine) - Closed Specialty Diagnoses / Procedures Referred By Contellen Referred To Contact Radiology Diagnoses 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) Procedures CT chest abdomen pelvis with contrast Eren Cr MD [address] [facility] [address] [place] [id number] Phone: tel: fax: [address] [phone] Referral ID Status Reason Start Date Expiration Date Visits Re quested Visits Authorized [id number] Closed 08/15/2020 09/14/2021 1 1 Reason for Visit * MRI/CAT/PET Scan (Routine) - Closed Specialty Diagnoses / Procedures Referred By Contac t Referred To Contact Radiology Diagnoses 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) Procedures CT soft tissue neck with contrast Eren Cr MD [address] [facility] [address] [place] [id number] Phone: tel: fax: [address] [phone] Referral ID Status Reason Start Date Expiration Date Visits Re quested Visits Authorized [id number] Closed 08/15/2020 09/14/2021 1 1 Encounter Details Date Type Department Care Team (Latest Contact Info) Description 11/11/2020 2:00 PM CDT - 11/11/2020 11:59 PM CDT Hospital Encounter [facility] [address] [place] [id number] Eren Cr MD [address] [facility] [address] [address] Bone metastasis (CMS/HCC); Neuroendocrine carcinoma (CMS/HCC); Malignant neoplasm metastatic to liver (CMS/HCC) Discharge Disposition: Discharge to home or self care Social History Tobacco Use Types Packs/Day Years Used Date Smoking Tobacco: Never Smokeless Tobacco: Never Alcohol Use Standard Drinks/Week Comments Yes 1 (1 standard drink = 0.6 oz pur e alcohol) Comments No Sex and Gender Information Value Date Recorded Sex Assigned at Not on file 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 Gender Identity Not on file Sexual Orientation [...] capsuleIndications :supplement 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 07/04/2016 4 cholecalciferol (VITAMIN D-3) 2,000 unit capsule Take 1 capsule (2,000 Units total) by mouth daily 30 capsule 2 04/25/2019 3 cholestyramine (QUESTRAN) 4 gram packet Take 1 packet by mouth 3 (three) times a day with meals 270 packet 3 09/04/2019 2 clotrimazole-betam ethasone (LOTRISONE) cream Apply 1 Application topically daily as needed (rash) 4 coenzyme [id number] 100-5 mg-unit capsuleIndications :supplement 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 4 denosumab (XGEVA) 120 mg/1.7 [...] CONTRAST Schedule Routine, Read Routine (OP Routine) 11/11/2020 3:18 PM CDT Bone metastasis (CMS/HCC) Neuroendocrine carcinoma (CMS/HCC) Malignant neoplasm metastatic to liver (CMS/HCC) CT SOFT TISSUE NECK W CONTRAST Schedule Routine, Read Routine (OP Routine) 11/11/2020 3:18 PM CDT Bone metastasis (CMS/HCC) Neuroendocrine carcinoma (CMS/HCC) Malignant neoplasm metastatic to liver (CMS/HCC) documented in this encounter Results * CT soft tissue neck with contrast (11/11/2020 3:18 PM CDT) Anatomical Region Laterality Modality Head and Neck N/A Computed Tomogra phy 11/11/2020 4:31 PM CDT Impressions 11/11/2020 4:37 PM CDT 1. Unchanged sclerotic lesions in the inferior right C7 articular facet, likely representing metastasis given prior Dotatate uptake. 2. Unchanged prominent right supraclavicular lymph node. Dictated by: Minh Tom M.D. The radiology attending physician has personally reviewed this study, and had reviewed and/or edited this written report and agrees with it. Electronically signed by: Greyson Saucedo M.D. Narrative 11/11/2020 4:37 PM CDT EXAMINATION: CT of the neck with contrast HISTORY: Metastatic neuroendocrine carcinoma. TECHNIQUE: CT of the neck was performed according to standard protocol after the uneventful administration of intravenous contrast. Contrast information: 125 mL Optiray-350 COMPARISON: CT neck dated 08/01/2020, Dotatate PET/CT dated 01/25/2020. FINDINGS: There is a prominent right supraclavicular lymph node measuring up to 1.1 cm x 0.7 cm (series 2, image 82), unchanged when compared to the prior examination. Other scattered subcentimeter lymph nodes are seen in the neck. None are pathologically enlarged or abnormally enhancing. The muscles of the neck are normal. Vessels of the neck demonstrate normal course and caliber. Fascial planes are preserved and the deep spaces of the neck are normal. The visualized airway is widely patent. Subcentimeter hypoattenuating thyroid nodules are noted bilaterally. The base of the skull and the temporal bones are normal. Limited views of the brain including the cerebellum and brainstem are normal. The limited view of the [place] is unremarkable. The visualized portions of the orbits are normal. The spinal canal is normal in caliber. There is mild multilevel degenerative disc disease. There is no significant interval change in the sclerotic lesion within the right C7 inferior articular facet . Limited examination of the superior thorax shows no pulmonary infiltrate, suspicious nodules, or pleural effusions. There is an aberrant right subclavian artery. Procedure Note Greyson Saucedo MD - 11/11/2020 EXAMINATION: CT of the neck with contrast HISTORY: Metastatic neuroendocrine carcinoma. TECHNIQUE: CT of the neck was performed according to standard protocol after the uneventful administration of intravenous contrast. Contrast information: 125 mL Optiray-350 COMPARISON: CT neck dated 08/01/2020, Dotatate PET/CT dated 01/25/2020. FINDINGS: There is a prominent right supraclavicular lymph node measuring up to 1.1 cm x 0.7 cm (series 2, image 82), unchanged when compared to the prior examination. Other scattered subcentimeter lymph nodes are seen in the neck. None are pathologically enlarged or abnormally enhancing. The muscles of the neck are normal. Vessels of the neck demonstrate normal course and caliber. Fascial planes are preserved and the deep spaces of the neck are normal. The visualized airway is widely patent. Subcentimeter hypoattenuating thyroid nodules are noted bilaterally. The base of the skull and the temporal bones are normal. Limited views of the brain including the cerebellum and brainstem are normal. The limited view of the [place] is unremarkable. The visualized portions of the orbits are normal. The spinal canal is normal in caliber. There is mild multilevel degenerative disc disease. There is no significant interval change in the sclerotic lesion within the right C7 inferior articular facet . Limited examination of the superior thorax shows no pulmonary infiltrate, suspicious nodules, or pleural effusions. There is an aberrant right subclavian artery. IMPRESSION: 1. Unchanged sclerotic lesions in the inferior right C7 articular facet, likely representing metastasis given prior Dotatate uptake. 2. Unchanged prominent right supraclavicular lymph node. Dictated by: Minh Tom M.D. The radiology attending physician has personally reviewed this study, and had reviewed and/or edited this written report and agrees with it. Electronically signed by: Greyson Saucedo M.D. Eren Cr MD IM CT PROCEDURES Final Resul t * CT chest abdomen pelvis with contrast (11/11/2020 3:18 PM CDT) Anatomical Region Laterality Modality Body N/A Computed Tomogra phy 11/11/2020 5:01 PM CDT Impressions 11/11/2020 5:37 PM CDT 1. Numerous intrahepatic metastases which are difficult to compare to prior studies, but are in grossly similar position to prior dotatate PET/CT, ??and are likely more apparent today due to increased hepatic steatosis. Hepatic serosal nodule and multiple omental nodules are stable in size compared to multiple prior CTs. Overall findings favored to represent stable disease, no definite new sites of disease. 2. Stable changes of diverting loop colostomy with right ileocecectomy. Dictated by: Lance Elizabeth M.D. The radiology attending physician has personally reviewed this study, and had reviewed and/or edited this written report and agrees with it. 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 TECHNIQUE: ??Transaxial computed tomographic images of the chest, abdomen and pelvis were obtained with intravenous contrast according to the standard protocol after the uneventful administration of 125 mL Opti-Ray 350 intravenous contrast. COMPARISON: CT chest and abdomen 08/01/2020. FINDINGS: ?? Chest: The heart size is within normal limits. The thoracic aorta and main pulmonary artery are normal in caliber. There is no large proximal pulmonary embolism. There is variant great vessel branching anatomy with a common trunk of the left and right common carotid arteries and an aberrant right subclavian artery. There is a tiny paraesophageal hiatal hernia. There is mild right basilar reticulation, which may represent the sequela of repeated aspiration. No suspicious pulmonary nodules are identified. No pleural effusion or pneumothorax seen. A 3mm intrafissural lymph node is unchanged in the right major fissure. ?? Abdomen/Pelvis: There are numerous mildly hyperenhancing hepatic masses seen including: * ??2.8 cm hepatic segment 2/4A (table position 974.5) * ??1.9 cm hepatic segment 4A (table position 946.5) * ??1.6 cm hepatic segment ??5/8 (table position 914.5) * ??1.9 cm hepatic segment 7/6 (table position 916.5) * ??3.9 cm hepatic segment 8/7 (table position 944.5) * ??1.3 cm hepatic segment 7 (table position 920.5) These hepatic masses were poorly visualized on prior CTs and cannot accurately be compared. There is an extrahepatic nodule adjacent to the posterior liver surface that measures 9 mm short axis, previously 9 mm (table position 920.5). The liver is diffusely steatotic, worsened compared to prior. The gallbladder is surgically absent. There is mild intrahepatic biliary ductal dilation and dilation of the common bile duct compatible with reservoir effect. There are scattered punctate hypoattenuating splenic lesions that are too small to characterize. There is mild fatty atrophy of the pancreas. The adrenal glands are unremarkable. The kidneys enhance symmetrically. There is an exophytic right renal cysts. No nephrolithiasis or hydroureteronephrosis is identified. Urinary bladder is decompressed. The uterus is surgically absent. There is unchanged enhancing nodularity of the right superior vaginal cuff, this is stable dating back to 10/27/2019. High attenuation periurethral material is unchanged. No adnexal mass lesions identified. The patient has a diverting loop colostomy that terminates in the left lower quadrant. There is diverticulosis without evidence of diverticulitis. There are postsurgical changes of prior ileocecectomy. The small bowel is nondilated. No evidence of small bowel obstruction is seen. There is an unchanged large duodenal for segment diverticulum that measures 4.6 cm. Multiple omental metastases are seen, for example a bilobed omental deposit measures 1.6 cm long axis, previously 1.6 cm (table position 844.5). An adjacent 7 mm omental nodule is similarly unchanged in size (table position 836.5). A 7 mm nodule within the left mid abdomen is similarly unchanged (table position 772.5). No mesenteric, retroperitoneal, or pelvic lymphadenopathy is identified. The abdominal aorta is nonaneurysmal. There are scattered atherosclerotic calcifications seen throughout the aorta and major branch vessels. No suspicious osseous lesions identified. Subcutaneous gas is associated with injection granulomas in the left flank. 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 TECHNIQUE: Transaxial computed tomographic images of the chest, abdomen and pelvis were obtained with intravenous contrast according to the standard protocol after the uneventful administration of 125 mL Opti-Ray 350 intravenous contrast. COMPARISON: CT chest and abdomen 08/01/2020. FINDINGS: Chest: The heart size is within normal limits. The thoracic aorta and main pulmonary artery are normal in caliber. There is no large proximal pulmonary embolism. There is variant great vessel branching anatomy with a common trunk of the left and right common carotid arteries and an aberrant right subclavian artery. There is a tiny paraesophageal hiatal hernia. There is mild right basilar reticulation, which may represent the sequela of repeated aspiration. No suspicious pulmonary nodules are identified. No pleural effusion or pneumothorax seen. A 3mm intrafissural lymph node is unchanged in the right major fissure. Abdomen/Pelvis: There are numerous mildly hyperenhancing hepatic masses seen including: * 2.8 cm hepatic segment 2/4A (table position 974.5) * 1.9 cm hepatic segment 4A (table position 946.5) * 1.6 cm hepatic segment 5/8 (table position 914.5) * 1.9 cm hepatic segment 7/6 (table position 916.5) * 3.9 cm hepatic segment 8/7 (table position 944.5) * 1.3 cm hepatic segment 7 (table position 920.5) These hepatic masses were poorly visualized on prior CTs and cannot accurately be compared. There is an extrahepatic nodule adjacent to the posterior liver surface that measures 9 mm short axis, previously 9 mm (table position 920.5). The liver is diffusely steatotic, worsened compared to prior. The gallbladder is surgically absent. There is mild intrahepatic biliary ductal dilation and dilation of the common bile duct compatible with reservoir effect. There are scattered punctate hypoattenuating splenic lesions that are too small to characterize. There is mild fatty atrophy of the pancreas. The adrenal glands are unremarkable. The kidneys enhance symmetrically. There is an exophytic right renal cysts. No nephrolithiasis or hydroureteronephrosis is identified. Urinary bladder is decompressed. The uterus is surgically absent. There is unchanged enhancing nodularity of the right superior vaginal cuff, this is stable dating back to 10/27/2019. High attenuation periurethral material is unchanged. No adnexal mass lesions identified. The patient has a diverting loop colostomy that terminates in the left lower quadrant. There is diverticulosis without evidence of diverticulitis. There are postsurgical changes of prior ileocecectomy. The small bowel is nondilated. No evidence of small bowel obstruction is seen. There is an unchanged large duodenal for segment diverticulum that measures 4.6 cm. Multiple omental metastases are seen, for example a bilobed omental deposit measures 1.6 cm long axis, previously 1.6 cm (table position 844.5). An adjacent 7 mm omental nodule is similarly unchanged in size (table position 836.5). A 7 mm nodule within the left mid abdomen is similarly unchanged (table position 772.5). No mesenteric, retroperitoneal, or pelvic lymphadenopathy is identified. The abdominal aorta is nonaneurysmal. There are scattered atherosclerotic calcifications seen throughout the aorta and major branch vessels. No suspicious osseous lesions identified. Subcutaneous gas is associated with injection granulomas in the left flank. IMPRESSION: 1. Numerous intrahepatic metastases which are difficult to compare to prior studies, but are in grossly similar position to prior dotatate PET/CT, and are likely more apparent today due to increased hepatic steatosis. Hepatic serosal nodule and multiple omental nodules are stable in size compared to multiple prior CTs. Overall findings favored to represent stable disease, no definite new sites of disease. 2. Stable changes of diverting loop colostomy with right ileocecectomy. Dictated by: Lance Elizabeth M.D. The radiology attending physician has personally reviewed this study, and had reviewed and/or edited this written report and agrees with it. 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) documented in this encounter Administered Medications Inactive Administered Medications - up to 3 most recent administrations Medication Order MAR Action Action Date Dose Rate Site ioversoL (OPTIRAY 350) syringe syringe 125 mL 125 mL, intravenous, Once in imaging, contrast, Starting on Sat11/11/20 at 1509, For 1 dose Given 11/11/2020 3:10 PM CDT 125 mL documented in this encounter Orders Medications Ordered That Brett ht Not Have Been Administered Count Last Ordered Date First Ordered Date ioversoL (OPTIRAY 350) syrin ge syringe 125 mL 1 11/11/2020 documented in this encounter Care Teams Technology Methodology Consultant Relationship Specialty Start Date End Date Julio César Briseno MD PCP - General 10/01/16 Eren Cr MD Referring Physician Medical Oncology 11/25/18 Yohana Bowen MD Radiation Oncologist Radiation Oncology 11/25/18 Sabrina Willard NP [address] [place] [address] Nurse Practitioner Medical Oncology 08/17/20 11/26/21 documented as of this encounter
--- OUTSIDE RECORDS SUMMARY | 2024-06-25 22:29 | XMS_ITS | Encounter Summary ---
Author Organization [facility] Address [address] [place] [address] Phone Care Team Providers Care Architectural Engineer Name Role Phone Julio César Briseno MD Primary Care Provider [phone] Eren Cr MD Unavailable Yohana Bowen MD Unavailable Sabrina Willard NP Unavailable [phone] Encounter Details Date Type Department Care Team (Late st Contact Info) Description 11/14/2020 11:00 AM CDT Office Visit [facility] On[facility] Advanced Medicine 7th [place] [address] [place] [address] Eren Cr MD [facility] [address] [place] [address] Neuroendocrine carcinoma (CMS/HCC) (Primary Dx); Bone metastasis (CMS/HCC); Diarrhea, unspecified type Social History Tobacco Use Types Packs/Day Years Used Date Smoking Tobacco: Never Smokeless Tobacco: Never Alcohol Use Standard Drinks/Week Comments Yes 1 (1 standard drink = 0.6 oz pur e alcohol) Comments No Sex and Gender Information Value Date Recorded Sex Assigned at Not on file 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 STRATEGIC ACCOUNT MANAGEMENT Gender Identity Not on file Sexual Orientation Straight 02/19/2021 9: 29 AM CDT Occupation Industry Job Start Date Job End Date retired Not on file Not on file Not on file documented as of this encounter Last Filed Vital Signs Vital Sign Reading Time Taken Comments Blood Pressure 137/62 11/14/2020 11:33 AM CDT Pulse 63 11/14/2020 11:33 AM CDT Temperature 36.6 ??C (97.8 ??F) 11/14/2020 11:33 AM C DT Respiratory Rate 18 11/14/2020 11:33 AM CDT Oxygen Saturation 98% 11/14/2020 11:33 AM CDT Inhaled Oxygen Concentration - - Weight 85.3 kg (188 lb) 11/14/2020 11:33 AM CDT Height - - Body Mass Index 33.3 06/23/2020 2:55 PM DIRECTOR STRATEGIC ACCOUNT MANAGEMENT documented in this encounter Progress Notes * Sabrina Willard, ESTHETICIAN AND MANAGER MEDICAL SPA - 11/14/2020 11:00 AM CDT MEDICAL ONCOLOGY OUTPATIENT ROV NOTE La Karishma Chung : 1950 DATE OF VISIT: 11/14/20 Oncology History Overview Note TREATMENT HISTORY: 1. [...] 10/03/2015, exploratory laparotomy, bilateral salpingo-oophorectomy, partial omentectomy, and [...] Chung underwent fulguration of ostomy site on 05/30/2020. sheis on monthly SSA with Octreotide LAR injections. Her CT scan was moved up a few weeks due to rising Chromogranin A. She has not taken PPI. ?? CT scan 11/11/2020 reveals stability of disease. CT C/A/P states Numerous intrahepatic metastases which are difficult to compare to prior studies, but are in grossly similar position to prior dotatate PET/CT, and are likely more apparent today due to increased hepatic steatosis. Hepatic serosal nodule and multiple omental nodules are stable in size compared to multiple prior CTs. Overall findings favored to represent stable disease, no definite new sites of disease . CT of neck also done and notes stability of C7 lesion and a supraclavicular LN. Has diarrhea already, and is one week after the octreotide LAR injection. She has imodium and it works, but is not great about taking it, or any pills. Does no like the cholestyramine. She does not have increased flushing. No wheezing. No new symptoms. She is planning on taking a trip to [place] next month. She states she is finally starting to feel like she is living. She has meet with counseling services, and has some mindfulness exercises that are helpful. Peristomal pain is well controlled with gabapentin. ALLERGIES: Allergies Allergen Reactions ??? Ezetimibe-Simvastatin Muscle pain and Unknown Muscle weakness ??? Ramipril Cough ROS: A complete review of systems was performed and was negative other than those mentioned in the aboveinterval history. All other systems negative. OBJECTIVE: Most Recent Vitals: BP: 137/62 Temp: 36.6 ??C (97.8 ??F) Temp src: Tympanic Pulse: 63 Resp: 18 SpO2: 98 % Weight: 85.3 kg (188 lb) PHYSICAL EXAM: ECOG PS: 1 GEN: Calm, conversant, well-appearing female in no apparent distress HEENT: PERRL, sclerae anicteric and non-injected, MMM, OP clear without erythema or exudates LYMPH: No cervical, supraclavicular lymphadenopathy CV: RRR, no m/r/g PULM: Clear to auscultation bilaterally. No wheezes or rales. Unlabored breathing. ABD: Soft, NT, ND, no hepatosplenomegaly, bowel sounds present in all quadrants. Ostomy in LLQ withsoft green/yellow/brown stool. EXT: No LE edema, warm and well-perfused SKIN: No rashes over exposed skin NEURO: A&Ox4, lead security officer grossly intact by conversation, moving all extremities well, no focal deficits appreciated PSYCH: Mood euthymic, affect appropriate and congruent, speech clear and goal-directed LABS: All laboratories personally reviewed and discussed with patient during office visit, selected values included below. Lab Results Component Value Date WBC 5.0 11/07/2020 HGB 13.2 11/07/2020 HCT 38.3 11/07/2020 MCV 92.8 11/07/2020 LABPLAT 136 (L) 11/07/2020 NEUTROABS 3.7 11/07/2020 CMP: Lab Results Component Value Date/Time SODIUM 141 11/07/2020 04:02 PM POTASSIUM 3.8 11/07/2020 04:02 PM CO2 28 11/07/2020 04:02 PM BUNSER 13 11/07/2020 04:02 PM GLUCOSE 101 11/07/2020 04:02 PM CREATININE 0.97 11/07/2020 04:02 PM CALCIUM 10.9 (H) 11/07/2020 04:02 PM CHLORIDE 104 11/07/2020 04:02 PM ALBUMIN 4.6 11/07/2020 04:02 PM AST 22 11/07/2020 04:02 PM ALT 18 11/07/2020 04:02 PM ALKPHOS 93 11/07/2020 04:02 PM BILITOT 0.5 11/07/2020 04:02 PM PROT 7.0 11/07/2020 04:02 PM ANIONGAP 9 11/07/2020 04:02 PM Lab Results Component Value Date MAGNESIUM 1.6 05/03/2019 Lab Results Component Value Date PHOS 3.4 11/07/2020 Tumor Marker History Some values may be hidden. Unless noted otherwise, only the newest values recorded on each date aredisplayed. Tumor Markers Latest Ref Range 08/15/20 09/12/20 10/10/20 11/07/20 Chromogranin A <93 ng/mL 389 (A) 407 (A) 468 (A) 628 (A) (A) Abnormal value Comments are available for some flowsheets but are not being displayed. IMAGING: CT chest abdomen pelvis with contrast Narrative: EXAMINATION: Computed tomography of the chest, [...] with injection granulomas in the left flank. Impression: 1. Numerous intrahepatic metastases which are difficult [...] Electronically signed by: Manny Loya M.D., Ph.D CT soft tissue neck with contrast Narrative: EXAMINATION: CT of the neck with contrast [...] are normal. The limited view of the [place] is unremarkable. The visualized portions of the [...] There is an aberrant right subclavian artery. Impression: 1. Unchanged sclerotic lesions in the inferior right C7 articular facet, likely representing metastasis given prior Dotatate uptake. 2. Unchanged prominent right supraclavicular lymph node. Dictated by: Minh Tom M.D. The radiology attending physician has personally reviewed this study, and had reviewed and/or edited this written report and agrees with it. Electronically signed by: Greyson Saucedo M.D. ASSESSMENT AND PLAN: Ms. 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 ??She comes in for continued treatment and follow-up. ?1.?Metastatic neuroendocrine tumor of the ilium:??Discussed the CT scan results that show stable disease. Chromogranin A is rising. Clinically, she is doing well. Will continue with OctreotideLAR injections each month. Discussed following next chromogranin A, and if rising still, obtain dotatate PET scan sooner rather than later (last 01/2020). Otherwise, will f/u in 3 months or sooner asneeded. Will consider discussing next images at [facility] tumor board. 2. Diarrhea: encouraged Imodium PRN. 3. Osseous metastasis: Xgeva monthly injections. 4. Peristomal pain: continue gabapentin. Sabrina Willard NP Medical Oncology Cosigned by Eren Cr Jr., MD at 11/16/2020 11:22 AM CDT documented in this encounter Plan of Treatment Not on file documented as of this encounter Visit Diagnoses Diagnosis Neuroendocrine carcinoma (HCC)- Primary Other malignant neoplasm of unspecified site Bone metastasis Secondary malignant neoplasm of bone and bone marrow Diarrhea, unspecified type documented in this encounter Care Teams Architectural Engineer Relationship Specialty Start Date End Date Julio César Briseno MD PCP - General 10/01/16 Eren Cr MD Referring Physician Medical Oncology 11/25/18 Yohana Bowen MD Radiation Oncologist Radiation Oncology 11/25/18 Sabrina Willard NP [address] [place] [address] Nurse Practitioner Medical Oncology 08/17/20 11/26/21 documented as of this encounter
--- OUTSIDE RECORDS SUMMARY | 2024-06-25 22:29 | XMS_ITS | Encounter Summary ---
Author Organization [facility] Address [address] [place] [address] Phone Care Team Providers Care Fiberglass Autobody Repairer Name Role Phone Julio César Briseno MD Primary Care Provider Eren Cr MD Unavailable [phone] Yohana Bowen MD Unavailable Sabrina Willard NP Unavailable [phone] Encounter Details Date Type Department Care Team (Late st Contact Info) Description 12/28/2020 Orders Only [facility] Oncology [address] [facility] Advanced Medicine 7th [place] [address] [place] [address] Eren Cr MD [address] [facility] [address] [place] [address] Neuroendocrine carcinoma (CMS/HCC) (Primary Dx); Malignant neoplasm metastatic to liver (CMS/HCC) Social History Tobacco Use Types Packs/Day Years Used Date Smoking Tobacco: Never Smokeless Tobacco: Never Alcohol Use Standard Drinks/Week Comments Yes 1 (1 standard drink = 0.6 oz pur e alcohol) Comments No Sex and Gender Information Value Date Recorded Sex Assigned at Not on file Legal Sex Female 2:41 PM RADIOGRAPHER Gender Identity Not on file Sexual Orientation Straight 02/19/2021 9: 29 AM CDT Occupation Industry Job Start Date Job End Date retired Not on file Not on file Not on file documented as of this encounter Ordered Prescriptions Prescription Sig Dispense Quantity Refills Last Filled Start Date End Date everolimus (AFINITOR) 10 mg tabletIndications:me tastatic neuroendocrine tumor of small bowel Take 1 tablet (10 mg total) by mouth daily 30 tablet 3 12/28/2020 documented in this encounter Plan of Treatment Not on file documented as of this encounter Visit Diagnoses Diagnosis Neuroendocrine carcinoma (HCC)- Primary Other malignant neoplasm of unspecified site Malignant neoplasm metastatic to liver (HCC) documented in this encounter Care Teams Fiberglass Autobody Repairer Relationship Specialty Start Date End Date Julio César Briseno MD PCP - General 10/01/16 Eren Cr MD Referring Physician Medical Oncology 11/25/18 Yohana Bowen MD Radiation Oncologist Radiation Oncology 11/25/18 Sabrina Willard NP [address] [place] [address] Nurse Practitioner Medical Oncology 08/17/20 11/26/21 documented as of this encounter
--- OUTSIDE RECORDS SUMMARY | 2024-06-25 22:29 | XMS_ITS | Encounter Summary ---
Author Organization [facility] Address [address] [place] [address] Phone Care Team Providers Care Hydroelectric Mechanic Name Role Phone Julio César Briseno MD Primary Care Provider [phone] Eren Cr MD Unavailable Yohana Bowen MD Unavailable Sabrina Willard NP Unavailable [phone] Encounter Details Date Type Department Care Team (Late st Contact Info) Description 12/16/2020 Orders Only [facility] Oncology [address] [facility] Advanced Medicine 7th [place] [address] [place] [address] Eren Cr MD [address] [facility] [address] [place] [address] 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); Neuroendocrine carcinoma (CMS/HCC) Social History Tobacco Use Types Packs/Day Years Used Date Smoking Tobacco: Never Smokeless Tobacco: Never Alcohol Use Standard Drinks/Week Comments Yes 1 (1 standard drink = 0.6 oz pur e alcohol) Comments No Sex and Gender Information Value Date Recorded Sex Assigned at Not on file Legal Sex Female 2:41 PM PANELBOARD ASSEMBLER Gender Identity Not on file Sexual Orientation Straight 02/19/2021 9: 29 AM CDT Occupation Industry Job Start Date Job End Date retired Not on file Not on file Not on file documented as of this encounter Plan of Treatment Not on file documented as of this encounter Results * (ABNORMAL) Comprehensive metabolic panel (01/02/2021 2:17 PM CDT) Sodium 141 135 - 145 mmol/L [facility] Comment:Testing performed by : [facility], [address] [place] [phone] Potassium, pl 3.8 3.3 - 4.9 mmol/L [facility] Comment:Testing performed by : [facility], [address] [place] [phone] Chloride 106 97 - 110 mmol/L [facility] Comment:Testing performed by : [facility], [address] [place] [phone] CO2 28 22 - 32 mmol/L [facility] Comment:Testing performed by : [facility], [address] [place] [phone] Anion gap 7 2 - 15 mmol/L [facility] Comment:Testing performed by : [facility], [address] [place] [phone] BUN 12 8 - 25 mg/dL [facility] Comment:Testing performed by : [facility], [address] [place] [phone] Creatinine 0.89 0.60 - 1.10 mg/dL [facility] Comment:Testing performed by : [address] [phone] Glucose 109 70 - 199 mg/dL [facility] Comment: Interpretive Data Fasting glucose >/= [...] revised 2017. Testing performed by: [facility], [address] [place] [phone] Calcium 10.7(H) 8.5 - 10.3 mg/dL [facility] Comment:Testing performed by : [facility], [address] [place] [phone] Bilirubin, total 0.5 0.1 - 1.2 mg/dL [facility] Comment:Testing performed by : [facility], [address] [place] [phone] Protein, pl 7.1 6.5 - 8.5 g/dL [facility] Comment:Testing performed by : [facility], [address] [place] [phone] Albumin 4.5 3.5 - 5.0 g/dL [facility] Comment:Testing performed by : [address] [phone] Alk phos 91 40 - 130 Units/L [facility] Comment:Testing performed by : [facility], [address] [place] [phone] ALT 18 7 - 45 Units/L [facility] Comment:Testing performed by : [address] [phone] AST 21 10 - 45 Units/L [facility] Comment:Testing performed by : [address] [phone] Blood specimen (specimen) 01/02/2021 2:17 PM CDT 01/02/2021 2:19 PM CDT us Eren Cr MD LAB BLOOD ORDERABLES Final Re sult [facility] [place] [address] * (ABNORMAL) CBC with auto differential (01/02/2021 2:17 PM CDT) WBC 5.2 3.8 - 9.8 K/cumm [facility] Comment:Testing performed by : [facility], [address] [place], [place] [id number] Hgb 13.1 12.1 - 15.1 g/dL [facility] Comment:Testing performed by : [facility], [address] [place], [place] [id number] Hct 37.5 36.1 - 44.3 % [facility] Comment:Testing performed by : [facility], [address] [place] [address] Plt 134(L) 140 - 440 K/cumm [facility] Comment:Testing performed by : [facility], [address] [place], [place] [id number] MPV 7.6 6.8 - 10.4 fL [facility] Comment:Testing performed by : [place] [address] RBC 4.07 3.90 - 5.00 M/cumm [facility] Comment:Testing performed by : [place] [address] MCV 92.1 80.0 - 97.6 fL [facility] Comment:Testing performed by : [facility], [address] [place], [place] [id number] MCH 32.1 26.7 - 33.7 pg [facility] Comment:Testing performed by : [place] [id number] MCHC 34.9 32.7 - 35.5 g/dL [facility] Comment:Testing performed by : [place] [address] RDW CV 13.6 11.8 - 14.6 % [facility] Comment:Testing performed by : [facility], [address] [place], [place] [id number] NRBC abs 0.00 0.00 - 0.01 K/cumm [facility] Comment:Testing performed by : [place] [id number] Blood specimen (specimen) 01/02/2021 2:17 PM CDT 01/02/2021 2:19 PM CDT Eren Cr MD LAB BLOOD ORDERABLES Final Re sult Performing Organization Address [facility]/ZIP Co de Phone Number JASON BLACK [facility] [place] [place] [address] * (ABNORMAL) Chromogranin A (01/02/2021 2:05 PM CDT) Chromogranin A 779(H) <93 ng/mL [facility] Comment: Impaired renal or hepatic function or treatment with proton pump inhibitors may result in artifactual elevations of Chromogranin A. ADDITIONAL INFORMATION This test was developed and its performance characteristics determined by [facility] in a manner consistent with CLIA requirements. This test has not been cleared or approved by the U.S. Food and Drug Administration. The testing method is a homogeneous time-resolved immunofluorescent assay manufactured by [employer] and performed on the [employer] Kr[employer]elligent Systemsor Compact Plus. ? Values obtained with different assay methods or kits may be different and cannot be used interchangeably. ? Test results cannot be interpreted as absolute evidence for the presence or absence of malignant disease. Test Performed by: [place] [address] Data Analysis Assistant: Immanuel Novak M.D. Ph.D.; CLIA# [id number] Blood specimen (specimen) 01/02/2021 2:05 PM CDT 01/02/2021 4:06 PM CDT Eren Cr MD LAB BLOOD ORDERABLES Final Re sult Performing Organization Address City/[facility]/ZIP Co de Phone Number JASON BLACK [facility] [place] [place] [address] documented in this encounter Visit Diagnoses Diagnosis Malignant neoplasm metastatic to liver (HCC)- Primary Neuroendocrine carcinoma (HCC) Other malignant neoplasm of unspecified site documented in this encounter Orders Appointment Requests Count Last Ordered Date Fi rst Ordered Date ONCBCN CLINIC APPOINTMENT REQUEST 1 021 ONCBCN INJECTION APPOINTMENT REQUEST 1 12/07 ONCBCN LAB APPOINTMENT 1 01/02/2021 documented in this encounter Care Teams Hydroelectric Mechanic Relationship Specialty Start Date End Date Julio César Briseno MD PCP - General 10/01/16 Eren Cr MD Referring Physician Medical Oncology 11/25/18 Yohana Bowen MD Radiation Oncologist Radiation Oncology 11/25/18 Sabrina Willard NP [address] [place] [address] Nurse Practitioner Medical Oncology 08/17/20 11/26/21 documented as of this encounter
--- OUTSIDE RECORDS SUMMARY | 2024-06-25 22:29 | XMS_ITS | Encounter Summary ---
Author Organization [facility] Address [address] [place] [address] Phone Care Team Providers Care Ground Instructor Advanced Name Role Phone Julio César Briseno MD Primary Care Provider Eren Cr MD Unavailable [phone] Yohana Bowen MD Unavailable Sabrina Willard NP Unavailable [phone] Encounter Details Date Type Department Care Team (Late st Contact Info) Description 11/25/2020 Orders Only [facility] Orthopaedic Surgery [address] [facility] Advanced Medicine 6th [place] [address] [place] [address] Lu Garcia MD [address] [place] [address] Closed displaced fracture of head of right radius, initial encounter (Primary Dx) Social History Tobacco Use Types Packs/Day Years Used Date Smoking Tobacco: Never Smokeless Tobacco: Never Alcohol Use Standard Drinks/Week Comments Yes 1 (1 standard drink = 0.6 oz pur e alcohol) Comments No Sex and Gender Information Value Date Recorded Sex Assigned at Not on file Legal Sex Female 2:41 PM SPECIAL DELIVERY WORKER Gender Identity Not on file Sexual Orientation Straight 02/19/2021 9: 29 AM CDT Occupation Industry Job Start Date Job End Date retired Not on file Not on file Not on file documented as of this encounter Plan of Treatment Not on file documented as of this encounter Visit Diagnoses Diagnosis Closed displaced fracture of head of right radius, initial encounter- Primary documented in this encounter Care Teams Ground Instructor Advanced Relationship Specialty Start Date End Date Julio César Briseno MD PCP - General 10/01/16 Eren Cr MD Referring Physician Medical Oncology 11/25/18 Yohana Bowen MD Radiation Oncologist Radiation Oncology 11/25/18 Sabrina Willard NP [address] [place] [address] Nurse Practitioner Medical Oncology 08/17/20 11/26/21 documented as of this encounter
--- OUTSIDE RECORDS SUMMARY | 2024-06-25 22:29 | XMS_ITS | Encounter Summary ---
Author Organization [facility] Address [address] [place] [address] Care Team Providers Care Data Security Consultant Name Role Phone Julio César Briseno MD Primary Care Provider [phone] Eren Cr MD Unavailable [phone] Yohana Bowen MD Unavailable Sabrina Willard NP Unavailable [phone] Reason for Referral * Diagnostic Imaging (Routine) - Closed Specialty Diagnoses / Procedures Referred By Contac t Referred To Contact Diagnoses Closed extra-articular fracture of distal end of right radius, initial encounter Procedures XR Elbow Right 3 or More Views Lu Garcia MD Phone: tel: [facility] Referral ID Status Reason Start Date Expiration Date Visits Re quested Visits Authorized [id number] Closed 11/30/2020 12/30/2021 1 1 Reason for Visit * Diagnostic Imaging (Routine) - Closed Specialty Diagnoses / Procedures Referred By Contac t Referred To Contact Diagnoses Closed extra-articular fracture of distal end of right radius, initial encounter Procedures XR Elbow Right 3 or More Views Lu Garcia MD Phone: tel: [facility] Referral ID Status Reason Start Date Expiration Date Visits Re quested Visits Authorized [id number] Closed 11/30/2020 12/30/2021 1 1 Encounter Details Date Type Department Care Team (Latest Contact Info) Description 11/30/2020 1:54 PM CDT - 11/30/2020 11:59 PM CDT Hospital Encounter [facility] [address] [place] [address] Lu Garcia MD [address] [place] [address] Closed extra-articular fracture of distal end of right radius, initial encounter Discharge Disposition: Discharge to home or self care Social History Tobacco Use Types Packs/Day Years Used Date Smoking Tobacco: Never Smokeless Tobacco: Never Alcohol Use Standard Drinks/Week Comments Yes 1 (1 standard drink = 0.6 oz pur e alcohol) Comments No Sex and Gender Information Value Date Recorded Sex Assigned at Not on file Legal Sex Female 2:41 PM ROLLING CHAIR PUSHER Gender Identity Not on file Sexual Orientation [...] Take 1 tablet by mouth early childhood associate before breakfast 07/04/2016 4 cholecalciferol (VITAMIN D-3) 2,000 unit capsule Take 1 capsule (2,000 Units total) by mouth daily 30 capsule 2 04/25/2019 3 cholestyramine (QUESTRAN) 4 gram packet Take 1 packet by mouth 3 (three) times a day with meals 270 packet 3 09/04/2019 2 clotrimazole-betam ethasone (LOTRISONE) cream Apply 1 Application topically daily as needed (rash) 4 coenzyme T91-kvoagag E 100-5 mg-unit capsuleIndications :supplement Take 1 tablet by mouth early childhood associate before breakfast 4 denosumab (XGEVA) 120 mg/1.7 [...] Date/Time Associated Diagnosis Comments XR ELBOW RIGHT 3 OR MORE VIEWS Schedule Routine, Read Routine (OP Routine) 11/30/2020 2:04 PM CDT Closed extra-articular fracture of distal end of right radius, initial encounter documented in this encounter Results * XR Elbow Right 3 or More Views (11/30/2020 2:04 PM CDT) Anatomical Region Laterality Modality Upper Extremities, Elbow Right Compute d Radiography 11/30/2020 4:14 PM CDT Impressions 11/30/2020 4:14 PM CDT 1. ??Splinted, minimally displaced right radial head fracture is unchanged. Electronically signed by: Esther Reed MD Narrative 11/30/2020 4:14 PM CDT EXAMINATION: XR ELBOW RIGHT 3 OR MORE VIEWS HISTORY: ??Right radial head fracture, follow-up FINDINGS: 3 radiographs of the right elbow are submitted for interpretation with comparison 11/20/2020. The patient is imaged in a splint. The minimally displaced radial head fracture appears unchanged. The small coronoid process and capitellar fractures are also unchanged. There is no significant elbow effusion. Procedure Note Carol Reed MD - 11/30/2020 EXAMINATION: XR ELBOW RIGHT 3 OR MORE VIEWS HISTORY: Right radial head fracture, follow-up FINDINGS: 3 radiographs of the right elbow are submitted for interpretation with comparison 11/20/2020. The patient is imaged in a splint. The minimally displaced radial head fracture appears unchanged. The small coronoid process and capitellar fractures are also unchanged. There is no significant elbow effusion. IMPRESSION: 1. Splinted, minimally displaced right radial head fracture is unchanged. Electronically signed by: Esther Reed MD us Lu Garcia MD IMG XR PROCEDURES Final Resu lt documented in this encounter Visit Diagnoses Diagnosis Closed extra-articular fracture of distal end of right radius, initial encounter documented in this encounter Care Teams Data Security Consultant Relationship Specialty Start Date End Date Julio César Briseno MD PCP - General 10/01/16 Eren Cr MD Referring Physician Medical Oncology 11/25/18 Yohana Bowen MD Radiation Oncologist Radiation Oncology 11/25/18 Sabrina Willard NP [address] [place] [address] Nurse Practitioner Medical Oncology 08/17/20 11/26/21 documented as of this encounter
--- OUTSIDE RECORDS SUMMARY | 2024-06-25 22:29 | XMS_ITS | Encounter Summary ---
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 Oncology [address] [facility] 7th [place] [address] [place] [address] Eren Cr MD [address] [facility] [address] [place] [address] Neuroendocrine carcinoma (CMS/HCC) (Primary Dx); Malignant neoplasm metastatic to liver (CMS/HCC); Bone metastasis (CMS/HCC) Social History Tobacco Use Types Packs/Day Years Used Date Smoking Tobacco: Never Smokeless Tobacco: Never Alcohol Use Standard Drinks/Week Comments Yes 1 (1 standard drink = 0.6 oz pur e alcohol) Comments No Sex and Gender Information Value Date Recorded Sex Assigned at Not on file Legal Sex Female 2:41 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 Gender Identity Not on file Sexual Orientation Straight 02/19/2021 9: 29 AM CDT Occupation Industry Job Start Date Job End Date retired Not on file Not on file Not on file documented as of this encounter Last Filed Vital Signs Vital Sign Reading Time Taken Comments Blood Pressure 170/76 01/02/2021 3:05 PM CDT Pulse 85 01/02/2021 3:05 PM CDT Temperature 36.7 ??C (98.1 ??F) 01/02/2021 3:05 PM CD T Respiratory Rate 18 01/02/2021 3:05 PM CDT Oxygen Saturation 96% 01/02/2021 3:05 PM CDT Inhaled Oxygen Concentration - - Weight 84.2 kg (185 lb 9.6 oz) 01/02/2021 3:05 P M CDT Height - - Body Mass Index 32.88 11/20/2020 12:44 PM CDT documented in this encounter Progress Notes * Eren Cr Jr., MD - 01/02/2021 2:30 PM CDT La Chung : 1950 DATE OF VISIT: 01/02/21 Cancer Staging Malignant neoplasm metastatic to liver [...] also underwent right colectomy in [facility] OR by Dr. Greyson Reeves. Biopsy [...] - Carcinoid Current day: Day 1, Cycle 34 (Started on 12/06/2020; Originally planned for 12/06/2020) Following planned day: Day 1, Cycle 35 (Planned for 01/02/2021) Oncology Supportive Care: DENOSUMAB (XGEVA) INJECTION Current treatment: Treatment 9 (Planned for 12/05/2020) Following planned treatment: Treatment 10 (Planned for 01/02/2021) INTERVAL HISTORY Ms. La Chung is a 70 y.o. Non- female with a history of metastatic neuroendocrine tumor who presents for follow-up routine oncologic care. Her recnt PET doatate showed progression after prior PRRT. Overall, she is feeling well. She states appetite and energy are good. She denies any mouth sores, skin rashes, fever, chills, night sweats, shortness of breath, cough, chest pain, nausea, vomiting, constipation, diarrhea, neuropathy, edema, urinary symptoms, or pain. PAST MEDICAL HISTORY: Past Medical History: Diagnosis Date ??? Cancer [...] ??? JOINT REPLACEMENT Left 2014 ? ? FL REMOVAL OF TONSILS,<12 Y/O Tonsillectomy - (Added by TW Conv) ??? FL TOTAL ABDOM HYSTERECTOMY Hysterectomy - (Added by TW Conv) ALLERGIES: Allergies Allergen Reactions ??? Morphine Blisters ??? Ezetimibe-Simvastatin Muscle pain and Unknown Muscle weakness ??? Ramipril Cough CURRENT MEDICATIONS: Current Outpatient Medications: ??? ascorbic acid, vitamin C, 500 mg capsule, Take 1 tablet by mouth operational review sergeant before breakfast, Disp: , Rfl: ??? cholecalciferol (VITAMIN D-3) 2,000 unit capsule, Take 1 capsule (2,000 Units total) by mouth daily (Patient taking differently: Take 2,000 Units by mouth daily ), Disp: 30 capsule, Rfl: 2 ??? clotrimazole-betamethasone (LOTRISONE) cream, clotrimazole-betamethasone 1 %-0.05 % topical cream APPLY EXTERNALLY TO ABDOMEN TWICE DAILY NEEDED, Disp: , Rfl: ??? coenzyme L84-oetmvik E (CO Q-10, WITH VIT E,) 100-5 mg-unit capsule, Take by mouth operational review sergeant before breakfast , Disp: , Rfl: ??? denosumab (XGEVA) 120 mg/1.7 mL (70 mg/mL) injection, Inject under the skin every 30 (thirty) days, Disp: , Rfl: ??? DULoxetine DR (CYMBALTA) 30 mg capsule, Take 1 capsule (30 mg total) by mouth daily (Patient taking differently: Take 30 mg by mouth operational review sergeant before breakfast ), Disp: 30 capsule, Rfl: 2 ??? fluticasone propionate (FLONASE) 50 mcg/actuation [...] per tablet, Take 0.5 tablets by mouth operational review sergeant before breakfast decrease dosage to 0.5 tablet [...] meals, Disp: 270 packet, Rfl: 3 ??? everolimus (AFINITOR) 10 mg tablet, Take 1 tablet (10 mg total) by mouth daily (Patient not taking: Reported on 01/02/2021), Disp: 30 tablet, Rfl: 3 ??? oxybutynin (DITROPAN) 5 mg [...] systems negative. PHYSICAL EXAMINATION: Performance Status: ECOG 0. Vital signs: Vitals BP 170/76 (BP Location: Right arm) Pulse 85 Temp 36.7 ??C (98.1 ??F) (Transdermal) Resp 18 Wt 84.2 kg (185 lb 9.6 oz) SpO2 96% BMI 32.88 kg/m?? General: She is a 70 y.o. [...] 24 hour(s)) Comprehensive metabolic panel Collection Time: 01/02/21 2:17 PM Result Value Ref Range Sodium 141 135 - 145 mmol/L Potassium, pl 3.8 3.3 - 4.9 mmol/L Chloride 106 97 - 110 mmol/L CO2 28 22 - 32 mmol/L Anion gap 7 2 - 15 mmol/L BUN 12 8 - 25 mg/dL Creatinine 0.89 0.60 - 1.10 mg/dL Glucose 109 70 - 199 mg/dL Calcium 10.7 (H) 8.5 - 10.3 mg/dL Bilirubin, total 0.5 0.1 - 1.2 mg/dL Protein, pl 7.1 6.5 - 8.5 g/dL Albumin 4.5 3.5 - 5.0 g/dL Alk phos 91 40 - 130 Units/L ALT 18 7 - 45 Units/L AST 21 10 - 45 Units/L CBC with auto differential Collection Time: 01/02/21 2:17 PM Result Value Ref Range WBC 5.2 3.8 - 9.8 K/cumm Hgb 13.1 12.1 - 15.1 g/dL Hct 37.5 36.1 - 44.3 % Plt 134 (L) 140 - 440 K/cumm MPV 7.6 6.8 - 10.4 fL RBC 4.07 3.90 - 5.00 M/cumm MCV 92.1 80.0 - 97.6 fL MCH 32.1 26.7 - 33.7 pg MCHC 34.9 32.7 - 35.5 g/dL RDW CV 13.6 11.8 - 14.6 % NRBC abs 0.00 0.00 - 0.01 K/cumm Lipid panel Collection Time: 01/02/21 2:17 PM Result Value Ref Range Cholesterol 133 30 - 199 mg/dL Triglycerides 253 (H) <=149 mg/dL HDL 57 >=40 mg/dL LDL, calculated 25 <=129 mg/dL Non-HDL Cholesterol 76 mg/dL Chol/HDL ratio 2 Differential, auto Collection Time: 01/02/21 2:17 PM Result Value Ref Range Neutrophil abs 3.9 1.8 - 6.6 K/cumm Lymphocyte abs 0.5 (L) 1.2 - 3.3 K/cumm Monocyte abs 0.7 0.2 - 1.2 K/cumm Eosinophil abs 0.1 0.0 - 0.5 K/cumm Basophil abs 0.0 0.0 - 0.2 K/cumm Neutrophil pct 76.0 % Lymphocyte pct 8.7 % Monocyte pct 12.9 % Eosinophil pct 1.8 % Basophil pct 0.6 % Hematology Lab History Some values may be hidden. Unless noted otherwise, only the newest values recorded on each date aredisplayed. Labs - Hematology Latest Ref Range 11/07/20 11/20/20 12/06/20 01/02/21 WBC 3.8 - 9.8 K/cumm 5.0 5.0 5.2 5.2 Total Hb, POC 12.1 - 15.1 g/dL 13.2 12.1 12.0 (A) 13.1 Hct 36.1 - 44.3 % 38.3 35.4 (A) 35.1 (A) 37.5 Plt 140 - 440 K/cumm 136 (A) 124 (A) 153 134 (A) Neutrophil abs 1.8 - 6.6 K/cumm 3.7 3.9 4.0 3.9 Lymphocytes, abs 1.2 - 3.3 K/cumm 0.5 (A) 0.4 (A) 0.4 (A) 0.5 (A) (A) Abnormal value Comments are available for some flowsheets but are not being displayed. Chem/LFT Lab History Some values may be hidden. Unless noted otherwise, only the newest values recorded on each date aredisplayed. Labs-Chem/LFT Latest Ref Range 11/07/20 11/20/20 12/06/20 01/02/21 Sodium 135 - 145 mmol/L 141 138 138 141 Creatinine 0.60 - 1.10 mg/dL 0.97 0.88 0.97 0.89 Bilirubin, total 0.1 - 1.2 mg/dL 0.5 0.5 0.4 0.5 AST 10 - 45 Units/L 22 See Comment 21 21 ALT 7 - 45 Units/L 18 See Comment 17 18 CrCl- Actual Body Weight (Cockcroft-Gault) 69.8 77.8 70 75.9 Comments are available for some flowsheets but are not being displayed. Tumor Marker History Some values may be hidden. Unless noted otherwise, only the newest values recorded on each date aredisplayed. Tumor Markers Latest Ref Range 09/12/20 10/10/20 11/07/20 12/06/20 Chromogranin A <93 ng/mL 407 (A) 468 (A) 628 (A) 789 (A) (A) Abnormal value Comments are available for some flowsheets but are not being displayed. IMAGES PET/CT Dotatate Skull to Thigh Narrative: EXAMINATION: Ga-68 DOTATATE -PET/CT IMAGING DATE OF [...] obtained. The study was interpreted on the [employer] workstation. Scanned area: skull vertex to the [...] periurethral hyperdensities. Multilevel degenerative spinal changes. Hysterectomy Impression: 1. Interval progression of metastatic neuroendocrine tumor [...] it. Electronically signed by: Loretta English M.D. IMPRESSION AND PLAN: Ms. La Chung is a 70 y.o. Non- female with metastatic neuroendocrine tumor with liver metastases s/p PRRT who presents for routine oncologic care. We reviewed her scan images noting her bone lesion. Discussed options such as everolimus and later cabozantinib study or another TKI. Side e ffects of everolimus discussed including mucositis, hyperlipidemia, pneumonitis, renal toxicities among others. She can start at 10 mg standard dose and adjust with toxicity.She will continuue on octreotide, Bone mets- she will continue on xgeva. As such we will plan on having La Chung return in 2 weeks with labs and in 4 weeks to see us in clinic.. All of her questions were answered. She understands and was in agreement with the plan ofcare. She knows to call the office in the interim with any symptoms, questions, or concerns. documented in this encounter Plan of Treatment Not on file documented as of this encounter Results * (ABNORMAL) Chromogranin A (01/30/2021 2:10 PM CDT) Pathologist [facility] Chromogranin A 1181(H) <93 ng/mL JASON BLACK Comment: Impaired renal or hepatic function or treatment with proton pump inhibitors may result in artifactual elevations of Chromogranin A. ADDITIONAL INFORMATION This test was developed and its performance characteristics determined by [facility] in a manner consistent with CLIA requirements. This test has not been cleared or approved by the U.S. Food and Drug Administration. The testing method is a homogeneous time-resolved immunofluorescent assay manufactured by [employer] and performed on the [employer] Kryptor Compact Plus. ? Values obtained with different assay methods or kits may be different and cannot be used interchangeably. ? Test results cannot be interpreted as absolute evidence for the presence or absence of malignant disease. Test Performed by: [facility] [place] [address] [employer] Supervisor: Immanuel Novak M.D. Ph.D.; CLIA# [id number] Blood specimen (specimen) 01/30/2021 2:10 PM CDT 01/30/2021 3:40 PM CDT Eren Cr MD LAB BLOOD ORDERABLES Final Re sult [facility] Department [place] [address] * (ABNORMAL) Comprehensive metabolic panel (01/30/2021 2:10 PM CDT) Sodium 136 135 - 145 mmol/L CERNER BJ Comment:Testing performed by : [facility], [address] [place] [phone] Potassium, pl 4.5 3.3 - 4.9 mmol/L CERNER BJ Comment:Testing performed by : [facility], [address] [place] [phone] Chloride 103 97 - 110 mmol/L CERNER BJ Comment:Testing performed by : [facility], [address] [place] [phone] CO2 23 22 - 32 mmol/L CERNER BJ Comment:Testing performed by : [facility], [address] [place] [phone] Anion gap 10 2 - 15 mmol/L CERNER BJ Comment:Testing performed by : [facility], [address] [place] [phone] BUN 23 8 - 25 mg/dL CERNER BJ Comment:Testing performed by : [facility], [address] [place] [phone] Creatinine 1.19(H) 0.60 - 1.10 mg/dL CERNER BJ Comment:Testing performed by : [facility], [address] [place] [phone] Glucose 133 70 - 199 mg/dL CERNER [facility] Comment: Interpretive Data Fasting glucose [...] 2017. Testing performed by: [facility], [address] [place] [phone] Calcium 10.4(H) 8.5 - 10.3 mg/dL CERNER BJ Comment:Testing performed by : [facility], [address] [place] [phone] Bilirubin, total 0.3 0.1 - 1.2 mg/dL [facility]ON [facility] Comment:Testing performed by : [facility], [address] [place] [phone] Protein, pl 7.2 6.5 - 8.5 g/dL JASON BLACK Comment:Testing performed by : [facility], [address] [place] [phone] Albumin 4.3 3.5 - 5.0 g/dL [facility]ON [facility] Comment:Testing performed by : [facility], [address] [place] [phone] Alk phos 120 40 - 130 Units/L [facility]ON [facility] Comment:Testing performed by : [facility], [address] [place], [place] [phone] ALT 28 7 - 45 Units/L [facility] Comment:Testing performed by : [facility], [address] [place] [phone] AST 35 10 - 45 Units/L [facility] Comment:Testing performed by : [facility], [address] [place] [phone] Blood specimen (specimen) 01/30/2021 2:10 PM CDT 01/30/2021 2:12 PM CDT Eren Cr MD LAB BLOOD ORDERABLES Final Re sult [facility] Department [place] [address] * (ABNORMAL) CBC with auto differential (01/30/2021 2:10 PM CDT) WBC 3.1(L) 3.8 - 9.8 K/cumm [facility] Comment:Testing performed by : [facility], [address] [place] [phone] Hgb 13.7 12.1 - 15.1 g/dL JASON BLACK Comment:Testing performed by : [address] [phone] Hct 40.0 36.1 - 44.3 % [facility] Comment:Testing performed by : [facility], [address] [place], [place] [phone] Plt 92(L) 140 - 440 K/cumm [facility] Comment:Testing performed by : [facility], [address] [place], [place] [phone] MPV 8.2 6.8 - 10.4 fL [facility] Comment:Testing performed by : [place] [address] RBC 4.34 3.90 - 5.00 M/cumm [facility] Comment:Testing performed by : [facility], [address] [place] [address] MCV 92.1 80.0 - 97.6 fL [facility] Comment:Testing performed by : [facility], [address] [place], [place] [phone] MCH 31.6 26.7 - 33.7 pg [facility] Comment:Testing performed by : [facility], [address] [place], [place] [phone] MCHC 34.3 32.7 - 35.5 g/dL [facility] Comment:Testing performed by : [place] [phone] RDW CV 13.1 11.8 - 14.6 % [facility] Comment:Testing performed by : [address] [phone] NRBC abs 0.00 0.00 - 0.01 K/cumm [facility] Comment:Testing performed by : [facility], [address] [place], [place] [phone] Blood specimen (specimen) 01/30/2021 2:10 PM CDT 01/30/2021 2:12 PM CDT us Eren Cr MD LAB BLOOD ORDERABLES Final Re sult [facility] Department [place] [address] documented in this encounter Visit Diagnoses Diagnosis Neuroendocrine carcinoma (HCC)- Primary Other malignant neoplasm of unspecified site 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) Bone metastasis Secondary malignant neoplasm of bone and bone marrow documented in this encounter Orders Appointment Requests Count Last Ordered Date Fi rst Ordered Date ONCBCN CLINIC APPOINTMENT REQUEST 2 021 01/02/2021 ONCBCN INJECTION APPOINTMENT REQUEST 1 01/06 ONCBCN LAB APPOINTMENT 1 01/30/2021 documented in this encounter Care Teams Driveway Attendant Relationship Specialty Start Date End Date Julio César Briseno MD PCP - General 10/01/16 Eren Cr MD Referring Physician Medical Oncology 11/25/18 Yohana Bowen MD Radiation Oncologist Radiation Oncology 11/25/18 Sabrina Willard NP [address] [place] [address] Nurse Practitioner Medical Oncology 08/17/20 11/26/21 documented as of this encounter
--- OUTSIDE RECORDS SUMMARY | 2024-06-25 22:29 | XMS_ITS | Encounter Summary ---
Author Organization [facility] Healthcare Address [address] [place] [address] Care Team Providers Care Gum Puller Name Role Phone Julio César Briseno MD Primary Care Provider [phone] Eren Cr MD Unavailable [phone] Yohana Bowen MD Unavailable Sabrina Willard NP Unavailable [phone] Reason for Referral * MRI/CAT/PET Scan (Routine) - Closed Specialty Diagnoses / Procedures Referred By Evelyne bowman Referred To Contact Radiology Diagnoses Neuroendocrine carcinoma (HCC) Procedures PET/CT Dotatate Skull to Thigh Eren Cr MD [address] [place] [address] Phone: tel: fax: [address] [phone] Referral ID Status Reason Start Date Expiration Date Visits Re quested Visits Authorized [id number] Closed 12/09/2020 01/08/2022 1 1 Reason for Visit * MRI/CAT/PET Scan (Routine) - Closed Specialty Diagnoses / Procedures Referred By Contac t Referred To Contact Radiology Diagnoses Neuroendocrine carcinoma (HCC) Procedures PET/CT Dotatate Skull to Thigh Eren Cr MD [address] [facility] [address] [place] [address] Phone: tel: fax: [facility] [address] [facility] [place] [address] Referral ID Status Reason Start Date Expiration Date Visits Re quested Visits Authorized [id number] Closed 12/09/2020 01/08/2022 1 1 Encounter Details Date Type Department Care Team (Latest Contact Info) Description 12/27/2020 2:05 PM CDT - 12/27/2020 11:59 PM CDT Hospital Encounter [facility] [address] [place] [address] Eren Cr MD [address] [facility] [address] [place] [address] Neuroendocrine carcinoma (CMS/HCC) Discharge Disposition: Discharge to home or self care Social History Tobacco Use Types Packs/Day Years Used Date Smoking Tobacco: Never Smokeless Tobacco: Never Alcohol Use Standard Drinks/Week Comments Yes 1 (1 standard drink = 0.6 oz pur e alcohol) Comments No Sex and Gender Information Value Date Recorded Sex Assigned at Not on file Legal Sex Female 2:41 PM CAR HIKER Gender Identity Not on file Sexual Orientation [...] capsuleIndications :supplement Take 1 tablet by mouth psychology physician before breakfast 07/04/2016 4 cholecalciferol (VITAMIN D-3) 2,000 unit capsule Take 1 capsule (2,000 Units total) by mouth daily 30 capsule 2 04/25/2019 3 cholestyramine (QUESTRAN) 4 gram packet Take 1 packet by mouth 3 (three) times a day with meals 270 packet 3 09/04/2019 2 clotrimazole-betam ethasone (LOTRISONE) cream Apply 1 Application topically daily as needed (rash) 4 coenzyme [id number] E 100-5 mg-unit capsuleIndications :supplement Take 1 tablet by mouth psychology physician before breakfast 4 denosumab (XGEVA) 120 mg/1.7 [...] Procedure Name Priority Date/Time Associated Diagnosis Comments PET/CT GA-68 DOTATATE SKULL TO THIGH Schedule Routine, Read Routine (OP Routine) 12/27/2020 4:10 PM CDT Neuroendocrine carcinoma (CMS/HCC) documented in this encounter Results * PET/CT Dotatate Skull [...] obtained. ??The study was interpreted on the [employer] workstation. ?? Scanned area: skull vertex to [...] obtained. The study was interpreted on the [employer] workstation. Scanned area: skull vertex to the [...] Loretta English M.D. Eren Cr MD IMG PET PROCEDURES Final Resu lt documented in this encounter Visit Diagnoses Diagnosis Neuroendocrine carcinoma (HCC) Other malignant neoplasm of unspecified site documented in this encounter Administered Medications Inactive Administered Medications - up to 3 most recent administrations Medication Order MAR Action Action Date Dose Rate Site Ga-68 dotatate injection 4.5 millicurie 4.5 millicurie, intravenous, Once in imaging, radiopharmaceutical, Starting on 12/27/20 at 1453, For 1 dose Given 12/27/2020 2:48 PM CDT 4.71 millicuries documented in this encounter Orders Medications Ordered That Brett ht Not Have Been Administered Count Last Ordered Date First Ordered Date Ga-68 dotatate injection 4.5 millicurie 1 0 12/27/2020 documented in this encounter Care Teams Gum Puller Relationship Specialty Start Date End Date Julio César Briseno MD PCP - General 10/01/16 Eren Cr MD Referring Physician Medical Oncology 11/25/18 Yohana Bowen MD Radiation Oncologist Radiation Oncology 11/25/18 Sabrina Willard NP [address] [place] [address] Nurse Practitioner Medical Oncology 08/17/20 11/26/21 documented as of this encounter
--- OUTSIDE RECORDS SUMMARY | 2024-06-25 22:29 | XMS_ITS | Encounter Summary ---
Author Organization [facility] Address [address] [place] [address] Phone Care Team Providers Care Customs Agent Name Role Phone Julio César Briseno MD Primary Care Provider [phone] Eren Cr MD Unavailable [phone] Yohana Bowen MD Unavailable Sabrina Willard NP Unavailable [phone] Encounter Details Date Type Department Care Team (Late st Contact Info) Description 11/16/2020 Orders Only [facility] Oncology [address] [facility] Advanced [facility] 7th [place] [address] [place] [id number] Eren Cr MD [address] [facility] [address] [place] [address] Social History Tobacco Use Types Packs/Day Years Used Date Smoking Tobacco: Never Smokeless Tobacco: Never Alcohol Use Standard Drinks/Week Comments Yes 1 (1 standard drink = 0.6 oz pur e alcohol) Comments No Sex and Gender Information Value Date Recorded Sex Assigned at Not on file Legal Sex Female 2:41 PM RIVER EXPEDITION GUIDE Gender Identity Not on file Sexual Orientation Straight 02/19/2021 9: 29 AM CDT Occupation Industry Job Start Date Job End Date retired Not on file Not on file Not on file documented as of this encounter Plan of Treatment Not on file documented as of this encounter Visit Diagnoses Not on filedocumented in this encounter Care Teams Customs Agent Relationship Specialty Start Date End Date Julio César Briseno MD PCP - General 10/01/16 Eren Cr MD Referring Physician Medical Oncology 11/25/18 Yohana Bowen MD Radiation Oncologist Radiation Oncology 11/25/18 Sabrina Willard NP [address] [place] [address] Nurse Practitioner Medical Oncology 08/17/20 11/26/21 documented as of this encounter
--- OUTSIDE RECORDS SUMMARY | 2024-06-25 22:29 | XMS_ITS | Encounter Summary ---
Author Organization [facility] Address [address] [place] [address] Phone Care Team Providers Care Creative Arts Music Therapist Name Role Phone Julio César Briseno MD Primary Care Provider Eren Cr MD Unavailable Yohana Bowen MD Unavailable Sabrina Willard NP Unavailable [phone] Encounter Details Date Type Department Care Team (Late st Contact Info) Description 12/28/2020 Orders Only [facility] Oncology [address] [facility] Advanced Medicine 7th [place] [address] [place] [address] Eren Cr MD [address] [facility] [address] [place] [address] Neuro-endocrine carcinoma (CMS/HCC) (Primary Dx) Social History Tobacco Use Types Packs/Day Years Used Date Smoking Tobacco: Never Smokeless Tobacco: Never Alcohol Use Standard Drinks/Week Comments Yes 1 (1 standard drink = 0.6 oz pur e alcohol) Comments No Sex and Gender Information Value Date Recorded Sex Assigned at Not on file Legal Sex Female 2:41 PM CONTINUOUS IMPROVEMENT COORDINATOR Gender Identity Not on file Sexual Orientation Straight 02/19/2021 9: 29 AM CDT Occupation Industry Job Start Date Job End Date retired Not on file Not on file Not on file documented as of this encounter Plan of Treatment Not on file documented as of this encounter Results * Hepatitis panel, acute (01/02/2021 2:05 PM CDT) Hep A IgM Nonreactive Nonreactive [facility] Comment: Interpretive Data: If Hep A IgM Ab is reported as Equivocal, a new sample should be drawn in two weeks for testing. Current interpretive data was last revised on 19. Hep B core IgM Nonreactive Nonreactive [facility] Comment: Interpretive Data If HepB Core IgM Ab is reported as Equivocal, a new sample should be drawn in two weeks for testing. Current interpretive data was last revised on 19. Hep C Ab Nonreactive Nonreactive [facility] Comment:Antibodies to HCV no t detected. Does NOT exclude the possibility of recent exposure to HCV. HepBsAg Nonreactive Nonreactive [facility] Blood specimen (specimen) 01/02/2021 2:05 PM CDT 01/02/2021 2:37 PM CDT Eren Cr MD LAB MICROBIOLOGY - GENERAL OR DERABLES Edited Result - Final [facility] Department [place] [address] documented in this encounter Visit Diagnoses Diagnosis Neuro-endocrine carcinoma (HCC)- Primary Other malignant neoplasm of unspecified site documented in this encounter Care Teams Creative Arts Music Therapist Relationship Specialty Start Date End Date Julio César Briseno MD PCP - General 10/01/16 Eren Cr MD Referring Physician Medical Oncology 11/25/18 Yohana Bowen MD Radiation Oncologist Radiation Oncology 11/25/18 Sabrina Willard TRUCKING MANAGER [address] [place] [address] Nurse Practitioner Medical Oncology 08/17/20 11/26/21 documented as of this encounter
--- OUTSIDE RECORDS SUMMARY | 2024-06-25 22:29 | XMS_ITS | Encounter Summary ---
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) Procedures ME OCTREOTIDE INJECTION, DEPOT Octreotide 28 Day Cycles - Carcinoid Eren Cr MD [address] [facility] [address] [place] [address] Phone: tel: fax: [facility] [address] [address] Phone: tel: fax: Referral ID Status Reason Start Date Expiration Date V isits Requested Visits Authorized [id number] Authorized 11/28/2017 02/05/2025 1 150 Encounter Details Date Type Department Care Team (Late st Contact Info) Description 12/06/2020 3:00 PM CDT Lab [facility] Oncology [address] [place] [address] 7th [place] [address] [place] [address] Neuroendocrine carcinoma (CMS/HCC); Malignant neoplasm metastatic to liver (CMS/HCC) Social History Tobacco Use Types Packs/Day Years Used Date Smoking Tobacco: Never Smokeless Tobacco: Never Alcohol Use Standard Drinks/Week Comments Yes 1 (1 standard drink = 0.6 oz pur e alcohol) Comments No Sex and Gender Information Value Date Recorded Sex Assigned at Not on file 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 Gender Identity Not on file Sexual Orientation Straight 02/19/2021 9: 29 AM CDT Occupation Industry Job Start Date Job End Date retired Not on file Not on file Not on file documented as of this encounter Plan of Treatment Not on file documented as of this encounter Procedures Procedure Name Priority Date/Time Associated Diagnosis Comments DIFFERENTIAL AUTO Routine 12/06/2020 3:0 9 PM CDT Neuroendocrine carcinoma (CMS/HCC) Malignant neoplasm metastatic to liver (CMS/HCC) CBC WITH AUTO DIFFERENTIAL Routine 12/06/2020 3:09 PM CDT Neuroendocrine carcinoma (CMS/HCC) Malignant neoplasm metastatic to liver (CMS/HCC) COMPREHENSIVE METABOLIC PANEL STAT 12/06/2020 3:09 PM CDT Neuroendocrine carcinoma (CMS/HCC) Malignant neoplasm metastatic to liver (CMS/HCC) CHROMOGRANIN A Routine 12/06/2020 2:55 PM CDT Neuroendocrine carcinoma (CMS/HCC) Malignant neoplasm metastatic to liver (CMS/HCC) documented in this encounter Results * (ABNORMAL) Differential, auto (12/06/2020 3:09 PM CDT) Neutrophil abs 4.0 1.8 - 6.6 K/cumm [facility] Comment:Testing performed by : [facility], [address] [place] [phone] Lymphocyte abs 0.4(L) 1.2 - 3.3 K/cumm JASON BLACK Comment:Testing performed by : [facility], [address] [place] [phone] Monocyte abs 0.6 0.2 - 1.2 K/cumm CERNER BJ Comment:Testing performed by : [facility], [address] [place] [phone] Eosinophil abs 0.2 0.0 - 0.5 K/cumm [facility] Comment:Testing performed by : [facility], [address] [place] [phone] Basophil abs 0.0 0.0 - 0.2 K/cumm [facility]J Comment:Testing performed by : [facility], [address] [place] [phone] Neutrophil pct 76.4 % [facility] Comment: Interpretive Data Percent cell count reference ranges are not reported, since discordance with absolute values may lead to misinterpretation of CBC data. Current Interpretive Data was last revised on 2017. Testing performed by: [facility], [address] [place] [phone] Lymphocyte pct 8.5 % [facility] Comment: Interpretive Data Percent cell count reference ranges are not reported, since discordance with absolute values may lead to misinterpretation of CBC data. Current Interpretive Data was last revised on 2017. Testing performed by: [facility], [address] [place] [phone] Monocyte pct 11.7 % [facility]ER BJ Comment:Testing performed by : [facility], [address] [place] [phone] Eosinophil pct 3.0 % CERMINNIE BJ Comment:Testing performed by : [facility], [address] [place] [phone] Basophil pct 0.4 % [facility]ERNER BJ Comment:Testing performed by : [facility], [address] [place] [phone] Blood specimen (specimen) 12/06/2020 3:09 PM CDT 12/06/2020 3:10 PM CDT us Eren Cr MD LAB BLOOD ORDERABLES Final Re sult JASON BLACK [facility] Department [place] [address] * Comprehensive metabolic panel (12/06/2020 3:09 PM CDT) Sodium 138 135 - 145 mmol/L [facility] Comment:Testing performed by : [facility], [address] [place] [phone] Potassium, pl 3.8 3.3 - 4.9 mmol/L [facility] Comment:Testing performed by : [facility], [address] [place] [phone] Chloride 103 97 - 110 mmol/L [facility] Comment:Testing performed by : [facility], [address] [place] [phone] CO2 31 22 - 32 mmol/L [facility] Comment:Testing performed by : [facility], [address] [place] [phone] Anion gap 4 2 - 15 mmol/L [facility] Comment:Testing performed by : [facility], [address] [place] [phone] BUN 16 8 - 25 mg/dL [facility] Comment:Testing performed by : [facility], [address] [place] [phone] Creatinine 0.97 0.60 - 1.10 mg/dL [facility] Comment:Testing performed by : [facility], [address] [place] [phone] Glucose 137 70 - 199 mg/dL [facility] Comment: Interpretive Data Fasting glucose [...] was last revised 2017. Testing performed by: [facility], [address] [place] [phone] Calcium 10.1 8.5 - 10.3 mg/dL [facility] Comment:Testing performed by : [facility], [address] [place] [phone] Bilirubin, total 0.4 0.1 - 1.2 mg/dL [facility] Comment:Testing performed by : [facility], [address] [place] [phone] Protein, pl 6.6 6.5 - 8.5 g/dL [facility] Comment:Testing performed by : [facility], [address] [place] [phone] Albumin 4.2 3.5 - 5.0 g/dL [facility] Comment:Testing performed by : [facility], [address] [place] [phone] Alk phos 116 40 - 130 Units/L [facility] Comment:Testing performed by : [facility], [address] [place] [phone] ALT 17 7 - 45 Units/L [facility] Comment:Testing performed by : [facility], [address] [place] [phone] AST 21 10 - 45 Units/L [facility] Comment:Testing performed by : [facility], [address] [place] [phone] Blood specimen (specimen) 12/06/2020 3:09 PM CDT 12/06/2020 3:10 PM CDT Eren Cr MD LAB BLOOD ORDERABLES Final Re sult [facility] Department [place] [address] * (ABNORMAL) CBC with auto differential (12/06/2020 3:09 PM CDT) WBC 5.2 3.8 - 9.8 K/cumm [facility] Comment:Testing performed by : [facility], [address] [place] [phone] Hgb 12.0(L) 12.1 - 15.1 g/dL [facility] Comment:Testing performed by : [facility], [address] [place], [place] [phone] Hct 35.1(L) 36.1 - 44.3 % [facility]ER [facility] Comment:Testing performed by : [facility], [address] [place] [address] Plt 153 140 - 440 K/cumm CERMINNIE [facility]J Comment:Testing performed by : [facility], [address] [place], [place] [phone] MPV 7.4 6.8 - 10.4 fL [facility] Comment:Testing performed by : [facility], [address] [place] [address] RBC 3.74(L) 3.90 - 5.00 M/cumm CERMINNIE [facility]J Comment:Testing performed by : [place] [address] MCV 93.9 80.0 - 97.6 fL [facility] Comment:Testing performed by : [facility], [address] [place], [place] [phone] MCH 32.1 26.7 - 33.7 pg [facility] Comment:Testing performed by : [place] [address] MCHC 34.2 32.7 - 35.5 g/dL [facility] Comment:Testing performed by : [place] [phone] RDW CV 13.8 11.8 - 14.6 % [facility] Comment:Testing performed by : [facility], [address] [place], [place] [phone] NRBC abs 0.00 0.00 - 0.01 K/cumm [facility] Comment:Testing performed by : [place] [address] Blood specimen (specimen) 12/06/2020 3:09 PM CDT 12/06/2020 3:10 PM CDT Eren Cr MD LAB BLOOD ORDERABLES Final Re sult [facility] Department [place] [address] * (ABNORMAL) Chromogranin A (12/06/2020 2:55 PM CDT) Chromogranin A 789(H) <93 ng/mL [facility] BLACK Comment: Impaired renal [...] a homogeneous time-resolved immunofluorescent assay manufactured by [employer] and performed on the [employer] Kryptor Compact Plus. ? Values obtained with different assay methods or kits may be different and cannot be used interchangeably. ? Test results cannot be interpreted as absolute evidence for the presence or absence of malignant disease. Test Performed by: [facility] [address] [place] [address] Nuclear Medicine Physician: Immanuel Novak M.D. Ph.D.; CLIA# [id number] Blood specimen (specimen) 12/06/2020 2:55 PM CDT 12/06/2020 8:00 PM CDT Eren Cr MD LAB BLOOD ORDERABLES Final Re sult JASON I[facility] Department [place] [address] documented in this encounter Visit Diagnoses Diagnosis Neuroendocrine carcinoma (HCC) Other malignant neoplasm of unspecified site Malignant neoplasm metastatic to liver (HCC) documented in this encounter Orders Appointment Requests Count Last Ordered Date Fi rst Ordered Date ONCBCN LAB APPOINTMENT 1 12/06/2020 documented in this encounter Care Teams Boiler Helper Relationship Specialty Start Date End Date Julio César Briseno MD PCP - General 10/01/16 Eren Cr MD Referring Physician Medical Oncology 11/25/18 Yohana Bowen MD Radiation Oncologist Radiation Oncology 11/25/18 Sabrina Willard NP [address] [place] [address] Nurse Practitioner Medical Oncology 08/17/20 11/26/21 documented as of this encounter
--- OUTSIDE RECORDS SUMMARY | 2024-06-25 22:29 | XMS_ITS | Encounter Summary ---
Author Organization [facility] Address [address] [place] [address] Phone Care Team Providers Care Denture Processor Name Role Phone Julio César Briseno MD Primary Care Provider [phone] Eren Cr MD Unavailable [phone] Yohana Bowne MD Unavailable Sabrina Willard NP Unavailable [phone] 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) Procedures [place] OCTREOTIDE INJECTION, DEPOT Octreotide 28 Day Cycles - Carcinoid Eren Cr MD [address] [facility] [address] [place] [address] Phone: tel: fax: [facility] [address] [address] Phone: tel: fax: Referral ID Status Reason Start Date Expiration Date V isits Requested Visits Authorized [id number] Authorized 11/28/2017 02/05/2025 1 150 Encounter Details Date Type Department Care Team (Late st Contact Info) Description 11/07/2020 3:45 PM CDT Lab [facility] Oncology Count includes the [facility] 7th [place] [address] [place] [address] Neuroendocrine carcinoma (CMS/HCC); Malignant neoplasm metastatic to liver (CMS/HCC) Social History Tobacco Use Types Packs/Day Years Used Date Smoking Tobacco: Never Smokeless Tobacco: Never Alcohol Use Standard Drinks/Week Comments Yes 1 (1 standard drink = 0.6 oz pur e alcohol) Comments No Sex and Gender Information Value Date Recorded Sex Assigned at Not on file 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 Gender Identity Not on file Sexual Orientation Straight 02/19/2021 9: 29 AM CDT Occupation Industry Job Start Date Job End Date retired Not on file Not on file Not on file documented as of this encounter Plan of Treatment Not on file documented as of this encounter Procedures Procedure Name Priority Date/Time Associated Diagnosis Comments DIFFERENTIAL AUTO Routine 11/07/2020 4:0 2 PM CDT Neuroendocrine carcinoma (CMS/HCC) Malignant neoplasm metastatic to liver (CMS/HCC) CHROMOGRANIN A Routine 11/07/2020 4:02 PM CDT Neuroendocrine carcinoma (CMS/HCC) Malignant neoplasm metastatic to liver (CMS/HCC) CBC WITH AUTO DIFFERENTIAL Routine 11/07/2020 4:02 PM CDT Neuroendocrine carcinoma (CMS/HCC) Malignant neoplasm metastatic to liver (CMS/HCC) PHOSPHORUS Routine 11/07/2020 4:02 PM CDT Neuroendocrine carcinoma (CMS/HCC) Malignant neoplasm metastatic to liver (CMS/HCC) COMPREHENSIVE METABOLIC PANEL STAT 11/07/2020 4:02 PM CDT Neuroendocrine carcinoma (CMS/HCC) Malignant neoplasm metastatic to liver (CMS/HCC) documented in this encounter Results * (ABNORMAL) Differential, auto (11/07/2020 4:02 PM CDT) Neutrophil abs 3.7 1.8 - 6.6 K/cumm JASON BLACK Comment:Testing performed by : [facility], [address], [place] [address] Lymphocyte abs 0.5(L) 1.2 - 3.3 K/cumm [facility] Comment:Testing performed by : [facility], [address] [place] [phone] Monocyte abs 0.6 0.2 - 1.2 K/cumm [facility] Comment:Testing performed by : [facility], [address] [place] [phone] Eosinophil abs 0.1 0.0 - 0.5 K/cumm [facility] Comment:Testing performed by : [facility], [address] [place] [address] Basophil abs 0.0 0.0 - 0.2 K/cumm [facility] Comment:Testing performed by : [facility], [address] [place] [address] Neutrophil pct 74.1 % [facility] Comment: Interpretive Data Percent cell count reference ranges are not reported, since discordance with absolute values may lead to misinterpretation of CBC data. Current Interpretive Data was last revised on 2017. Testing performed by: [facility], [address] [place] [phone] Lymphocyte pct 10.6 % [facility] Comment: Interpretive Data Percent cell count reference ranges are not reported, since discordance with absolute values may lead to misinterpretation of CBC data. Current Interpretive Data was last revised on 2017. Testing performed by: [facility], [address] [place] [phone] Monocyte pct 12.4 % [facility] Comment:Testing performed by : [facility], [address] [place] [address] Eosinophil pct 2.1 % [facility] Comment:Testing performed by : [facility], [address] [place] [address] Basophil pct 0.8 % [facility] Comment:Testing performed by : [facility], [address] [place] [phone] Blood specimen (specimen) 11/07/2020 4:02 PM CDT 11/07/2020 4:04 PM CDT us Eren Cr MD LAB BLOOD ORDERABLES Final Re sult [facility] Department [place] [address] * (ABNORMAL) CBC with auto differential (11/07/2020 4:02 PM CDT) WBC 5.0 3.8 - 9.8 K/cumm JASON BLACK Comment:Testing performed by : [facility], [address] [place] [address] Hgb 13.2 12.1 - 15.1 g/dL JASON BLACK Comment:Testing performed by : [address] [address] Hct 38.3 36.1 - 44.3 % JASON BLACK Comment:Testing performed by : [address] [address] Plt 136(L) 140 - 440 K/cumm JASON BLACK Comment:Testing performed by : [facility], [address] [place] [address] MPV 7.7 6.8 - 10.4 fL [facility]ON [facility] Comment:Testing performed by : [address] [address] RBC 4.13 3.90 - 5.00 M/cumm JASON BLACK Comment:Testing performed by : [address] [address] MCV 92.8 80.0 - 97.6 fL JASON BLACK Comment:Testing performed by : [address] [address] MCH 32.0 26.7 - 33.7 pg JASON BLACK Comment:Testing performed by : [address] [address] MCHC 34.5 32.7 - 35.5 g/dL JASON BLACK Comment:Testing performed by : [address] [address] RDW CV 13.5 11.8 - 14.6 % JASON BLACK Comment:Testing performed by : [facility], [address] [place] [address] NRBC abs 0.00 0.00 - 0.01 K/cumm JASON BLACK Comment:Testing performed by : [facility], [address] [place] [phone] Blood specimen (specimen) 11/07/2020 4:02 PM CDT 11/07/2020 4:04 PM CDT us Eren Cr MD LAB BLOOD ORDERABLES Final Re sult JASON BLACK [facility] Department [place] [address] * (ABNORMAL) Comprehensive metabolic panel (11/07/2020 4:02 PM CDT) Sodium 141 135 - 145 mmol/L JASON BLACK Comment:Testing performed by : [facility], [address] [place] [address] Potassium, pl 3.8 3.3 - 4.9 mmol/L JASON BLACK Comment:Testing performed by : [facility], [address] [place] [address] Chloride 104 97 - 110 mmol/L JASON BLACK Comment:Testing performed by : [facility], [address] [place] [address] CO2 28 22 - 32 mmol/L JASON BLACK Comment:Testing performed by : [facility], [address] [place] [address] Anion gap 9 2 - 15 mmol/L JASON BLACK Comment:Testing performed by : [facility], [address] [place] [address] BUN 13 8 - 25 mg/dL JASON BLACK Comment:Testing performed by : [facility], [address] [place] [address] Creatinine 0.97 0.60 - 1.10 mg/dL JASON BLACK Comment:Testing performed by : [facility], [address] [place] [address] Glucose 101 70 - 199 mg/dL [facility] Comment: [...] was last revised 2017. Testing performed by: [facility], [address] [place] [address] Calcium 10.9(H) 8.5 - 10.3 mg/dL C[facility]ER [facility] Comment:Testing performed by : [place] [phone] Bilirubin, total 0.5 0.1 - 1.2 mg/dL C[facility]ER [facility] Comment:Testing performed by : [facility], [address] [place], [place] [phone] Protein, pl 7.0 6.5 - 8.5 g/dL [facility] Comment:Testing performed by : [address] [address] Albumin 4.6 3.5 - 5.0 g/dL C[facility] Comment:Testing performed by : [address] [address] Alk phos 93 40 - 130 Units/L C[facility]ER [facility] Comment:Testing performed by : [place] [phone] ALT 18 7 - 45 Units/L C[facility]ER [facility] Comment:Testing performed by : [place] [phone] AST 22 10 - 45 Units/L C[facility]ER [facility] Comment:Testing performed by : [address] [address] Blood specimen (specimen) 11/07/2020 4:02 PM CDT 11/07/2020 4:04 PM CDT Eren Cr MD LAB BLOOD ORDERABLES Final Re sult Performing Organization Address [facility] Co de Phone Number JASON BLACK [facility] [place] [address] * (ABNORMAL) Chromogranin A (11/07/2020 4:02 PM CDT) Pathologist [facility] Chromogranin A 628(H) <93 ng/mL [facility] Comment: Impaired renal or hepatic function or treatment with proton pump inhibitors may result in artifactual elevations of Chromogranin A. ADDITIONAL INFORMATION This test was developed and its performance characteristics determined by [facility] in a manner consistent with CLIA requirements. This test has not been cleared or approved by the U.S. Food and Drug Administration. The testing method is a homogeneous time-resolved immunofluorescent assay manufactured by [employer] and performed on the [employer] Kryptor Compact Plus. ? Values obtained with different assay methods or kits may be different and cannot be used interchangeably. ? Test results cannot be interpreted as absolute evidence for the presence or absence of malignant disease. Test Performed by: [place] [address] Engineering Leader: Immanuel Novak M.D. Ph.D.; CLIA# [id number] Blood specimen (specimen) 11/07/2020 4:02 PM CDT 11/07/2020 5:05 PM CDT Eren Cr MD LAB BLOOD ORDERABLES Final Re sult Performing Organization Address [facility] Co de Phone Number JASON BLACK[facility]eman [facility] [place] [address] * Phosphorus (11/07/2020 4:02 PM CDT) Pathologist [facility] Phosphorus, pl 3.4 2.3 - 4.5 mg/dL JASON [facility] Comment:Testing performed by : [facility], [address] [place] [phone] Blood specimen (specimen) 11/07/2020 4:02 PM CDT 11/07/2020 4:04 PM CDT us Sabrina Willard PRINT LINE SUPERVISOR LAB BLOOD ORDERABLES Final R esult [facility] Department [place] [address] documented in this encounter Visit Diagnoses Diagnosis Neuroendocrine carcinoma (HCC) Other malignant neoplasm of unspecified site Malignant neoplasm metastatic to liver (HCC) documented in this encounter Orders Appointment Requests Count Last Ordered Date Fi rst Ordered Date ONCBCN LAB APPOINTMENT 1 11/07/2020 documented in this encounter Care Teams Denture Processor Relationship Specialty Start Date End Date Julio César Briseno MD PCP - General 10/01/16 Eren Cr MD Referring Physician Medical Oncology 11/25/18 Yohana Bowen MD Radiation Oncologist Radiation Oncology 11/25/18 Sabrina Willard NP [facility] [address] [place] [address] Nurse Practitioner Medical Oncology 08/17/20 11/26/21 documented as of this encounter
--- OUTSIDE RECORDS SUMMARY | 2024-06-25 22:29 | XMS_ITS | Encounter Summary ---
Author Organization [facility] Address [address] [place] [address] Phone Care Team Providers Care Valver Name Role Phone Julio César Briseno MD Primary Care Provider [phone] Eren Cr MD Unavailable Yohana Bowen MD Unavailable Sabrina Willard NP Unavailable Encounter Details Date Type Department Care Team (Late st Contact Info) Description 11/09/2020 Orders Only [facility] Oncology [address] [facility] Advanced Medicine 7th [place] [address] [place] [address] Eren Cr MD [address] [facility] [address] [place] [address] Neuroendocrine carcinoma (CMS/HCC) (Primary Dx) Social History Tobacco Use Types Packs/Day Years Used Date Smoking Tobacco: Never Smokeless Tobacco: Never Alcohol Use Standard Drinks/Week Comments Yes 1 (1 standard drink = 0.6 oz pur e alcohol) Comments No Sex and Gender Information Value Date Recorded Sex Assigned at Not on file 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
--- OUTSIDE RECORDS SUMMARY | 2024-06-25 22:29 | XMS_ITS | Encounter Summary ---
Author Organization [facility] Address [address] [place] [address] Care Team Providers Care Inhalation Therapy Aides Teacher Name Role Phone Julio César Briseno MD Primary Care Provider [phone] Eren Cr MD Unavailable Yohana Bowen MD Unavailable Sabrina Willard NP Unavailable [phone] Encounter Details Date Type Department Care Team (Latest Contact Info) Description 11/07/2020 Orders Only Oncology Eren Cr MD [address] [facility] [address] [place], [place] [id number] Social History Tobacco Use Types Packs/Day Years Used Date Smoking Tobacco: Never Smokeless Tobacco: Never Alcohol Use Standard Drinks/Week Comments Yes 1 (1 standard drink = 0.6 oz pur e alcohol) Comments No Sex and Gender Information Value Date Recorded Sex Assigned at Not on file 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 Gender Identity Not on file Sexual Orientation Straight 02/19/2021 9: 29 AM CDT Occupation Industry Job Start Date Job End Date retired Not on file Not on file Not on file documented as of this encounter Plan of Treatment Not on file documented as of this encounter Visit Diagnoses Not on filedocumented in this encounter Care Teams Inhalation Therapy Aides Teacher Relationship Specialty Start Date End Date Julio César Briseno MD PCP - General 10/01/16 Eren Cr MD Referring Physician Medical Oncology 11/25/18 Yohana Bowen MD Radiation Oncologist Radiation Oncology 11/25/18 Sabrina Willard NP [address] [place] [address] Nurse Practitioner Medical Oncology 08/17/20 11/26/21 documented as of this encounter
--- OUTSIDE RECORDS SUMMARY | 2024-06-25 22:29 | XMS_ITS | Encounter Summary ---
Author Organization [facility] Address [address] [place] [address] Phone Care Team Providers Care Enterprise Application Administrator Name Role Phone Julio César Briseno MD Primary Care Provider [phone] Eren Cr MD Unavailable Yohana Bowen MD Unavailable Sabrina Willard NP Unavailable Encounter Details Date Type Department Care Team (Late st Contact Info) Description 10/10/2020 Orders Only [facility] Oncology [address] [facility] Advanced Medicine 7th [place] [address] [place] [address] Eren Cr MD [address] [facility] [address] [place] [address] Social History Tobacco Use Types Packs/Day Years Used Date Smoking Tobacco: Never Smokeless Tobacco: Never Alcohol Use Standard Drinks/Week Comments Yes 1 (1 standard drink = 0.6 oz pur e alcohol) Comments No Sex and Gender Information Value Date Recorded Sex Assigned at Not on file 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 Gender Identity Not on file Sexual Orientation Straight 02/19/2021 9: 29 AM CDT Occupation Industry Job Start Date Job End Date retired Not on file Not on file Not on file documented as of this encounter Plan of Treatment Not on file documented as of this encounter Visit Diagnoses Not on filedocumented in this encounter Care Teams Enterprise Application Administrator Relationship Specialty Start Date End Date Julio César Briseno MD PCP - General 10/01/16 Eren Cr MD Referring Physician Medical Oncology 11/25/18 Yohana Bowen MD Radiation Oncologist Radiation Oncology 11/25/18 Sabrina Willard NP [address] [place] [address] Nurse Practitioner Medical Oncology 08/17/20 11/26/21 documented as of this encounter
--- OUTSIDE RECORDS SUMMARY | 2024-06-25 22:29 | XMS_ITS | Encounter Summary ---
Author Organization [facility] Address [address] [place] [address] Phone Care Team Providers Care Pharmaceutical Detailer Name Role Phone Julio César Briseno MD Primary Care Provider [phone] Eren Cr MD Unavailable [phone] Yohana Bowen MD Unavailable Sabrina Willard NP Unavailable Reason for Visit * Reason Onset Date Comments appointment 12/19/20 12/16/2020 Encounter Details Date Type Department Care Team (Late st Contact Info) Description 12/16/2020 Telephone [facility] Oncology [address] [facility] Advanced Medicine 7th [place] [address] [place] [address] Eren Cr MD [address] [facility] [address] [place] [address] appointment 12/19/20 Social History Tobacco Use Types Packs/Day Years Used Date Smoking Tobacco: Never Smokeless Tobacco: Never Alcohol Use Standard Drinks/Week Comments Yes 1 (1 standard drink = 0.6 oz pur e alcohol) Comments No Sex and Gender Information Value Date Recorded Sex Assigned at Not on file 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 documented in this encounter Plan of Treatment Not on file documented as of this encounter Visit Diagnoses Not on filedocumented in this encounter Care Teams Pharmaceutical Detailer Relationship Specialty Start Date End Date Julio César Briseno MD PCP - General 10/01/16 Eren Cr MD Referring Physician Medical Oncology 11/25/18 Yohana Bowen MD Radiation Oncologist Radiation Oncology 11/25/18 Sabrina Willard NP [address] [place] [address] Nurse Practitioner Medical Oncology 08/17/20 11/26/21 documented as of this encounter
--- OUTSIDE RECORDS SUMMARY | 2024-06-25 22:29 | XMS_ITS | Encounter Summary ---
Author Organization [facility] Address [address] [place] [address] Care Team Providers Care Hatch Boss Name Role Phone Julio César Briseno MD Primary Care Provider [phone] Eren Cr MD Unavailable [phone] Yohana Bowen MD Unavailable Sabrina Willard NP Unavailable Alejo Mi MD Unavailable [phone] Encounter Details Date Type Department Care Team (Late st Contact Info) Description 12/22/2020 Telephone [facility] [address] [place] [address] Gretchen Ceja, RT Social History Tobacco Use Types Packs/Day Years Used Date Smoking Tobacco: Never Smokeless Tobacco: Never Alcohol Use Standard Drinks/Week Comments Yes 1 (1 standard drink = 0.6 oz pur e alcohol) Comments No Sex and Gender Information Value Date Recorded Sex Assigned at Not on file 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 Gender Identity Not on file Sexual [...] COVID: Suspected 09/04/2021 09/04/2021 09/04/2021 4:06 PM ELECTRONIC SCIENCE TEACHER COVID: Suspected 01/10/2022 01/10/2022 01/10/2022 5:55 PM CDT COVID: Suspected 06/13/2024 06/13/2024 06/13/2024 6:39 PM ELECTRONIC SCIENCE TEACHER documented as of this encounter Care Teams Hatch Boss Relationship Specialty Start Date End Date Julio César Briseno MD PCP - General 10/01/16 Eren Cr MD Referring Physician Medical Oncology 11/25/18 Yohana Bowen MD Radiation Oncologist Radiation Oncology 11/25/18 Sabrina Willard NP [address] [place], [place] [address] Nurse Practitioner Medical Oncology 08/17/20 11/26/21 Alejo Mi MD [address] [place] [address] Referring Physician Nephrology 03/07/23 documented as of this encounter
--- OUTSIDE RECORDS SUMMARY | 2024-06-25 22:29 | XMS_ITS | Encounter Summary ---
Author Organization [facility] Address [address] [place] [address] Phone Care Team Providers Care Rig Mechanic Name Role Phone Julio César Briseno MD Primary Care Provider Eren Cr MD Unavailable [phone] Yohana Bowen MD Unavailable Sabrina Willard NP Unavailable [phone] Encounter Details Date Type Department Care Team (Late st Contact Info) Description 12/06/2020 Orders Only [facility] Oncology [address] [place] [address] Sabrina Willard, DIRECTOR OF ONLINE EDUCATION [address] [place] [address] Social History Tobacco Use Types Packs/Day Years Used Date Smoking Tobacco: Never Smokeless Tobacco: Never Alcohol Use Standard Drinks/Week Comments Yes 1 (1 standard drink = 0.6 oz pur e alcohol) Comments No Sex and Gender Information Value Date Recorded Sex Assigned at Not on file 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 Gender Identity Not on file Sexual Orientation Straight 02/19/2021 9: 29 AM CDT Occupation Industry Job Start Date Job End Date retired Not on file Not on file Not on file documented as of this encounter Plan of Treatment Not on file documented as of this encounter Visit Diagnoses Not on filedocumented in this encounter Care Teams Rig Mechanic Relationship Specialty Start Date End Date Julio César Briseno MD PCP - General 10/01/16 Eren Cr MD Referring Physician Medical Oncology 11/25/18 Yohana Bowen MD Radiation Oncologist Radiation Oncology 11/25/18 Sabrina Willard NP [address] [place] [address] Nurse Practitioner Medical Oncology 08/17/20 11/26/21 documented as of this encounter
--- OUTSIDE RECORDS SUMMARY | 2024-06-25 22:29 | XMS_ITS | Encounter Summary ---
Author Organization [facility] Address [address] [place] [address] Phone Care Team Providers Care Addiction Medicine Physician Name Role Phone Julio César Briseno MD Primary Care Provider Eren Cr MD Unavailable Yohana Bowen MD Unavailable Sabrina Willard NP Unavailable Encounter Details Date Type Department Care Team (Late st Contact Info) Description 12/06/2020 Orders Only [facility] Oncology [address] [facility] [address] [place] [address] [place] [id number] Eren Cr MD [address] [facility] [address] [place] [address] Social History Tobacco Use Types Packs/Day Years Used Date Smoking Tobacco: Never Smokeless Tobacco: Never Alcohol Use Standard Drinks/Week Comments Yes 1 (1 standard drink = 0.6 oz pur e alcohol) Comments No Sex and Gender Information Value Date Recorded Sex Assigned at Not on file Legal Sex Female 2:41 PM [employer]INT DEV[employer] Gender Identity Not on file Sexual Orientation Straight 02/19/2021 9: 29 AM CDT Occupation Industry Job Start Date Job End Date retired Not on file Not on file Not on file documented as of this encounter Plan of Treatment Not on file documented as of this encounter Visit Diagnoses Not on filedocumented in this encounter Care Teams Addiction Medicine Physician Relationship Specialty Start Date End Date Julio César Briseno MD PCP - General 10/01/16 Eren Cr MD Referring Physician Medical Oncology 11/25/18 Yohana Bowen MD Radiation Oncologist Radiation Oncology 11/25/18 Sabrina Willard NP [address] [place] [address] Nurse Practitioner Medical Oncology 08/17/20 11/26/21 documented as of this encounter
--- OUTSIDE RECORDS SUMMARY | 2024-06-25 22:29 | XMS_ITS | Encounter Summary ---
Author Organization [facility] Address [address] [place] [address] Care Team Providers Care Security Police Officer Name Role Phone Julio César Briseno MD Primary Care Provider [phone] Eren Cr MD Unavailable [phone] Yohana Bowen MD Unavailable Sabrina Willard NP Unavailable [phone] Reason for Visit * Reason Comments Fall Encounter Details Date Type Department Care Team (Late st Contact Info) Description 11/20/2020 1:02 PM CDT - 11/20/2020 7:56 PM CDT Emergency [facility] Emergency Department [address] [place] [address] Hilario Fernandes MD [address] [place] [address] Freddie Bowen MD [address] [place] [address] Closed displaced fracture of head of right radius, initial encounter (Primary Dx); Traumatic hematoma of forehead, initial encounter Discharge Disposition: Discharge to home or self care Social History Tobacco Use Types Packs/Day Years Used Date Smoking Tobacco: Never Smokeless Tobacco: Never Alcohol Use Standard Drinks/Week Comments Yes 1 (1 standard drink = 0.6 oz pur e alcohol) Comments No Sex and Gender Information Value Date Recorded Sex Assigned at Not on file 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 Gender Identity Not on file Sexual Orientation Straight 02/19/2021 9: 29 AM CDT Occupation Industry Job Start Date Job End Date retired Not on file Not on file Not on file documented as of this encounter Last Filed Vital Signs Vital Sign Reading Time Taken Comments Blood Pressure 154/50 11/20/2020 6:30 PM CDT Pulse 68 11/20/2020 6:30 PM CDT Temperature 37 ??C (98.6 ??F) 11/20/2020 12:40 PM CDT Respiratory Rate 20 11/20/2020 4:20 PM CDT Oxygen Saturation 97% 11/20/2020 6:30 PM CDT Inhaled Oxygen Concentration - - Weight 85.3 kg (188 lb) 11/20/2020 12:44 PM CDT Height 160 cm (5' 3 ) 11/20/2020 12:44 PM CDT Body Mass Index 33.3 11/20/2020 12:44 PM CDT documented in this encounter Discharge Diagnoses Diagnosis Displaced fracture of head of right radius, initial encounter for closed fracture - DISPLACED FRACTURE OF HEAD OF RIGHT RADIUS, INITIAL ENCOUNTER FOR CLOSED FRACTURE Contusion of scalp, initial encounter - CONTUSION OF SCALP, INITIAL ENCOUNTER Other chest pain - OTHER CHEST PAIN Encounter for immunization - ENCOUNTER FOR IMMUNIZATION Fall (on) (from) unspecified stairs and steps, initial encounter - FALL (ON) (FROM) UNSPECIFIED STAIRS AND STEPS, INITIAL ENCOUNTER Activity, walking, marching and hiking - ACTIVITY, WALKING, MARCHING AND HIKING Other place in unspecified non-institutional (private) residence as the place of occurrence of the external cause - OTHER PLACE IN UNSPECIFIED NON-INSTITUTIONAL (PRIVATE) RESIDENCE THE PLACE OF OCCURRENCE OF THE E Abrasion, left ankle, initial encounter - ABRASION, LEFT ANKLE, INITIAL ENCOUNTER Abrasion, right knee, initial encounter - ABRASION, RIGHT KNEE, INITIAL ENCOUNTER Unspecified external cause status - UNSPECIFIED EXTERNAL CAUSE STATUS Contact with and (suspected) exposure to covid-19 - CONTACT WITH AND (SUSPECTED) EXPOSURE TO COVID-19 Essential (primary) hypertension - ESSENTIAL (PRIMARY) HYPERTENSION Unspecified essential hypertension Other long-term (current) drug therapy - OTHER NURSING HOME (CURRENT) DRUG THERAPY Allergy status to other drugs, medicaments and biological substances - ALLERGY STATUS TO OTHER DRUGS, MEDICAMENTS AND BIOLOGICAL SUBSTANCES documented in this encounter Discharge Instructions * Discharge Instructions* Tamar Pagan RN - 11/20/2020 7:46 PM CDT You were seen in the ER today after a fall. You have a broken bone in your right arm that needs an operation tomorrow. Please call your doctor or return to the ER for any headache, numbness, tingling, weakness, feeling like going to pass out, abdominal pain or any other concerning issues. Don't eat anything after midnight No weight bearing on your right arm You may take oxycodone for pain Keep splint clean and dry, elevation above level of the heart * Attachments The following attachments cannot be sent through Care Everywhere. * Contusion, Facial (Nigerien) * Arm Fracture in Adults (Quartz Orientator) (Nigerien) * Fall, Mechanical (Nigerien) documented in this encounter Medications at Time of Discharge [place] [facility] and needs Cavilon 3M skin barrier film to manage. 20 each 6 09/21/2019 simvastatin (ZOCOR) 20 mg tablet Take 1 tablet (20 mg total) by mouth nightly ascorbic acid, vitamin C, 500 mg capsuleIndications :supplement Take 1 tablet by mouth favor maker before breakfast 07/04/2016 4 cholecalciferol (VITAMIN D-3) 2,000 unit capsule Take 1 capsule (2,000 Units total) by mouth daily 30 capsule 2 04/25/2019 3 cholestyramine (QUESTRAN) 4 gram packet Take 1 packet by mouth 3 (three) times a day with meals 270 packet 3 09/04/2019 2 clotrimazole-betam ethasone (LOTRISONE) cream Apply 1 Application topically daily as needed (rash) 4 coenzyme [id number] 100-5 mg-unit capsuleIndications :supplement Take 1 tablet by mouth favor maker before breakfast 4 denosumab (XGEVA) 120 mg/1.7 [...] as needed for pain 8 tablet 11/20/2020 05/22/2021 documented in this encounter Discharge Disposition Disposition Code Departure Means Destination Discharge to home or self care documented in this encounter Consult Notes * Manny Sparks MD PhD - 11/20/2020 4:00 PM CDTAssociated Order(s): CONSULT TO ORTHO-TRAUMA Orthopaedic Surgery Consult November 20, 2020 4:01 PM Reason for Consult: R radial head fx Requesting Provider: ED Consulting Provider: Resident - Bridger/Attending - Jose Patient (home) Insurance: Payor: / No coverage found. HPI: La Chung is a 70 y.o. female s/p fall down stairs p/w R radial head fx. OI: Scalp hematoma. Exam: Closed w some sup abrasions. TTP diffusely around elbow. Mechanical block to ext (35 deg). No other apparent injuries. NVI. PMH: neuroendocrine tumor s/p resection w colostomy, HTN. SH: Never smoker, - EtOH, - drugs, comm amb w/o assist, retired Pain is located around site of injury, is sharp and doesn't radiate. Pain is moderate in severity. Pain is made worse with movement, and better with rest. Past Medical History: Diagnosis Date ??? Cancer [...] ??? JOINT REPLACEMENT Left 2014 ? ? NV REMOVAL OF TONSILS,<12 Y/O Tonsillectomy - (Added by TW Conv) ??? NV TOTAL ABDOM HYSTERECTOMY Hysterectomy - (Added by TW Conv) Prior to Admission medications Medication Sig Start Date End Date Taking? Authorizing Provider ascorbic acid, vitamin C, 500 mg capsule Take 1 tablet by mouth favor maker before breakfast 07/04/16 Levon Kee MD cholecalciferol (VITAMIN D-3) 2,000 unit capsule Take 1 capsule (2,000 Units total) by mouth daily Patient taking differently: Take 2,000 Units by mouth daily 04/25/19 Laura Lopes MD cholestyramine (QUESTRAN) 4 gram packet Take 1 packet by mouth 3 (three) times a day with meals 09/04/19 06/23/20 Greyson Reeves MD clotrimazole-betamethasone (LOTRISONE) cream clotrimazole-betamethasone 1 %-0.05 % topical cream APPLY EXTERNALLY TO ABDOMEN TWICE DAILY NEEDED Levon Kee MD coenzyme [id number] E (CO Q-10, WITH VIT E,) 100-5 mg-unit capsule Take by mouth favor maker before breakfast Levon Kee MD denosumab (XGEVA) 120 mg/1.7 mL (70 mg/mL) injection Inject under the skin every 30 (thirty) days Levon Kee MD DULoxetine DR (CYMBALTA) 30 mg capsule Take 1 capsule (30 mg total) by mouth daily Patient taking differently: Take 30 mg by mouth favor maker before breakfast 04/24/19 Laura Lopes MD fluticasone propionate (FLONASE) 50 mcg/actuation nasal spray fluticasone propionate 50 mcg/actuation nasal spray,suspension Levon Kee MD gabapentin (NEURONTIN) 600 mg tablet Take 1 tablet (600 mg total) by mouth 3 (three) times a day 09/01/20 09/01/21 Eren Cr Jr., MD montelukast (SINGULAIR) 10 mg tablet Take 10 mg by mouth as needed Levon Kee MD octreotide (SandoSTATIN) 50 mcg/mL (1 mL) syringe every 30 (thirty) days 04/09/16 Levon Kee MD olmesartan-hydrochlorothiazide (BENICAR HCT) 20-12.5 mg per tablet Take 0.5 tablets by mouth favor maker before breakfast decrease dosage to 0.5 tablet daily 05/14/[address] Briseno at office visit. 05/14/19 Levon Kee MD ondansetron (ZOFRAN) 8 mg tablet Take 1 tablet (8 mg total) by mouth every 8 (eight) hours as needed for nausea or vomiting Patient not taking: Reported on 06/23/2020 08/05/19 Yohana Bowen MD [place] [facility] [place] has colostomy and needs Cavilon 3M skin barrier film to manage. 09/21/19 Greyson Reeves MD oxybutynin (DITROPAN) 5 mg tablet Take 1 tablet (5 mg total) by mouth 2 (two) times a day for 14 days 04/24/19 06/23/20 Laura Lopes MD simvastatin (ZOCOR) 20 mg tablet Take 20 mg by mouth nightly ProviderLevon MD triamcinolone (KENALOG) 0.1 % ointment Apply to itchy rash on hands twice daily until improved 05/06/20 Po Newberry MD PhD Allergies Allergen Reactions ??? Ezetimibe-Simvastatin Muscle pain [...] TW Conv) ??? Other (old age) Mother Review of Systems: Constitutional: Negative for chills and fever. HENT: Negative for acute hearing loss Eyes: Negative for pain and visual disturbance. Respiratory: Negative for cough and shortness of breath. Cardiovascular: Negative for chest pain and palpitations. Gastrointestinal: Negative for abdominal pain and vomiting. Genitourinary: Negative for dysuria and hematuria. Musculoskeletal: pain in injured extremity Skin: Negative for acute rash. Neurological: Negative for seizures and syncope. Review of systems per HPI and otherwise all other systems are negative. Objective Vitals: 24hr Min/Max: Temp Min: 37 ??C (98.6 ??F) Max: 37 ??C (98.6 ??F) Pulse Min: 60 Max: 67 BP Min: 151/62 Max: 162/59 Resp Min: 18 Max: 20 SpO2 Min: 97 % Max: 100 % Most Recent: Vitals: 11/20/20 1244 11/20/20 1320 11/20/20 1320 11/20/20 1325 BP: 162/59 Pulse: 60 66 67 Resp: 20 Temp: SpO2: 100% 100% 97% Weight: 85.3 kg (188 lb) Height: 160 cm (5' 3 ) Physical Exam: Gen: NAD Neuro: A&Ox3 Resp: NLB CV: regular rhythm MSK: RUE As per above +EPL/FPL/FDP2,5/IO/EDC SILT ax/m/u/r palpable radial pulse, fingers wwp LUE No obvious deformity, ecchymosis, or joint effusion. Non-TTP and full ROM of shoulder, elbow, forearm, wrist. +EPL/FPL/FDP2,5/IO/EDC SILT ax/m/u/r palpable radial pulse, fingers wwp RLE No obvious deformity, ecchymosis, or joint effusion. Non-TTP and full ROM of hip, knee, and ankle. +ehl/fhl/ta/gsc SILT dp/sp/s/s/t palpable DP/PT pulse, foot wwp LLE No obvious deformity, ecchymosis, or joint effusion. Non-TTP and full ROM of hip, knee, and ankle. +ehl/fhl/ta/gsc SILT dp/sp/s/s/t palpable DP/PT pulse, foot wwp Lab/Radiology/Diagnostic Review: Laboratory review: No results found for this or any previous visit (from the past 24 hour(s)). Radiology Review: I have reviewed the imaging with the following findings: R radial head fx Clinical Images: None Assessment/Plan La Chung is a 70 y.o. female who presents with above. PROCEDURE: Intra-artic lido injected and motion assessed. 80/80 pronation/supitaiton. Flexion to 130. Extension w 35-40 deg block. Placed in post slab splint PLAN: 1. Likely d/c from ED. Please don't d/c before speaking with ortho 2. Plan for operative management 3. NWB RUE 4. NPO at midnight 5. Pre-op: IPAP evaluation, CBC/BMP/PT/PTT/T&S/T&Cx2U/UA/CXR/EKG, covid testing, ipap 6. Pain control 7. Keep splint clean and dry, elevation above level of the heart 8. Abx: Periop Ancef 9. DVT ppx: Please hold AM dose on day of OR if on DVT ppx Manny Sparks MD PhD Orthopaedic Surgery PGY-2 ? During normal business hours - If you know the resident's name on the appropriate orthopaedic surgery team, please use [email or web address] to page resident directly. ? If you have questions overnight or can't reach the appropriate resident, please call the Orthopaedic Surgery Consult Pager [phone] to have your questions answered or be directed to the correctOrthopaedic Surgery resident. Cosigned by Lu Garcia MD at 11/21/2020 6:29 AM CDT documented in this encounter ED Notes * Immanuel Goldstein MD - 11/20/2020 2:03 PM CDT HPI Chief Complaint Patient presents with ??? 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 Patient was walking down basement stairs when mid way bent over to steel pickler a zipper, on the way back up she tangled her feet and fell 6-8 steps to basement floor. + head strike, - LOC. + pain to R forearm proximally. No VILLATORO, n/t/w, back pain, abdominal pain. Reports R lower chest pain/feeling of bruise. Otherwise, no other treatments prior to arrival, denies any other exacerbating nor alleviating factors. 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 Neuroendocrine carcinoma (CMS/HCC) 10/24/2015 ??? Obesity [...] ??? JOINT REPLACEMENT Left 2014 ? ? NV REMOVAL OF TONSILS,<12 Y/O Tonsillectomy - (Added by TW Conv) ??? NV TOTAL ABDOM HYSTERECTOMY Hysterectomy - (Added by TW Conv) Family History Problem Relation Age of Onset ??? Breast cancer Sister Adenocarcinoma of breast - (Added by TW Conv) ??? Suicidality Father Family history of suicide - (Added by TW Conv) ??? Other (old age) Mother Social History Tobacco Use ??? Smoking status: Never Smoker ??? Smokeless tobacco: Never Used Vaping Use ??? Vaping Use: Never used Substance Use Topics ??? Alcohol use: Yes Alcohol/week: 1.0 standard drinks Types: 1 Shots of liquor per week ??? Drug use: No Social History Social History Narrative : (Added by TW Conv) Retired : (Added by TW Conv) Occasional alcohol use : (Added by TW Conv) Review of Systems Primary survey: Airway: intact Pulm: b/l lung sounds Cardio: b/l fem and DP/PT pulse 2+ GCS 15 Secondary: Neuro: moving all 4 extremities b/l HEENT: no TTP, no septal hematoma, no hemotympanum, swelling to R forehead Chest: anterior no TTP/hematoma, mild TTP R side lower ribs Abdomen: non tender, non-distended, no hematoma Back: no c/t/l spine TTP nor bony step-offs Extremities: no deformities, warm, well perfused Review of Systems Physical Exam ED Triage Vitals [11/20/20 1240] Temp Pulse Resp BP SpO2 37 ??C (98.6 ??F) 62 18 151/62 98 % Temp src Heart Rate Source Patient Position BP Location FiO2 (%) -- -- -- -- -- Physical Exam Primary survey: Airway: intact Pulm: b/l lung sounds Cardio: b/l fem and DP/PT pulse 2+ GCS 15 Secondary: Neuro: moving all 4 extremities b/l HEENT: no TTP, no septal hematoma, no hemotympanum Chest: mild TTP R lower chest/no hematoma Abdomen: non tender, non-distended, no hematoma Back: no c/t/l spine TTP nor bony step-offs Extremities: no deformities, warm, well perfused with exception of TTP R elbow, thumbs up, lumbrical, wrist extension intact, sensation intact, no open wounds. 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 Ddx: known R forearm fx on OSH imaging(displaced and comminuted radial head fx), less likely ICH, c-spine injury), low prob intrathoracic, or intraabdominal injury. Plan: xrays RUE, cxr, pelvis, truama labs, ecg, likely ortho consult anddispo pending images and consults. MDM Attending Summary of Care I have seen and examined this patient, I have discussed/reviewed the history, physical exam and assessment with the resident. We are in agreement with treatment plan except as I have noted 70 y.o. year old female history of neuroendocrine tumor s/p resection, ostomy presents s/p mechanical fall down steps. Went to where diagnosed with R- radial head fx, sent to [facility] For further treatment. Otherwise, no other treatments prior to arrival, denies any other exacerbating nor alleviating f actors. Exam: vitals reviewed, contusion/bruise to R-forehead, otherwise head atraumatic, A&Ox3, mild distress due to pain, PERRLA, conjunctiva clear, neck supple, CTAB, RRR, soft/NT/ND, no rebound/guarding, ostomy noted, back normal to inspection, nonfocal neurological exam, no psychomotor agitation, skin warm and well perfused without rash, abrasions noted to L-ankle and R-knee. Concern for acute fx, intra-cranial injury less likely, abdominal injury unlikely. Plan: trauma imaging, labs, ortho consult for definitive management. Freddie Bowen MD 11/25/2020 Closed displaced fracture of head of right radius, initial encounter Traumatic hematoma of forehead, initial encounter Freddie Bowen MD 11/22/20 1420 Immanuel Goldstein MD Resident 11/24/20 0802 Immanuel Goldstein MD Resident 11/25/20 4905 Cosigned by Freddie Bowen MD at 11/26/2020 12:02 AM CDT * Tristian Treviño RN - 11/20/2020 1:02 PM CDT Bed: ED2-30 Expected date: Expected time: Means of arrival: Car Comments: Tristian Treviño RN 11/20/20 1302 * Meagan Ibarra RN - 11/20/2020 12:37 PM CDT Patient presents after falling down her basement stairs onto the concrete ground at approx 09:00 this morning. Patient was seen at prior to arrival and has a confirmed broken right arm in a splintand sling. Told to come to ED for CT of her head. VSS. Abrasions noted to left ankle and right knee. documented in this encounter Miscellaneous Notes * ED Procedure Note - Freddie Bowen MD - 11/20/2020 7:56 PM CDT Procedure Procedures I was present for the entire procedure. Fracture care and static splint application performed by orthopedic resident. Freddie Bowen MD 11/22/20 142 * ED Re-evaluation Note - Mikayla Beltrán MD - 11/20/2020 6:50 PM CDT TRANSITION OF CARE: I, Mikayla Beltrán MD, am taking signout from Dr. Goldstein and assuming care of this patient. I have reviewed all pertinent vital signs, allergies, and history available in the chart. Summary: 70 y.o. 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 Trauma work up notable for cominuted displaced raddial head fracture. Splinted by ortho. Will be discharge with plan for OR tomorrow. Pending: Labs Dispo: Discharge Final diagnoses: Closed displaced fracture of head of right radius, initial encounter Mikayla Beltrán MD Resident 11/21/20 0726 * ED Procedure Note - Freddie Bowen MD - 11/20/2020 6:25 PM CDTAssociated Order(s): ECG 12 lead Procedure ECG 12 lead Date/Time: 11/20/2020 6:25 PM Performed by: Freddie Bowen MD Authorized by: Immanuel Goldstein MD Rate: ECG rate: 64 ECG rate assessment: normal Rhythm: Rhythm: sinus rhythm Ectopy: Ectopy: none QRS: QRS axis: Normal QRS intervals: Normal Conduction: Conduction: abnormal Abnormal conduction: incomplete LBBB ST segments: ST segments: Normal T waves: T waves: normal Other findings: Other findings: LVH Previous ECG: Previous ECG: Compared to current Similarity: No change Interpretation: Interpretation: non-specific Recommended Follow-up: Recommended follow up: further workup in the ED Comments: EKG performed for trauma. Low risk for ACS Freddie Bowen MD 11/20/20 1825 documented in this encounter Plan of Treatment Not on file documented as of this encounter Procedures Procedure Name Priority Date/Time Associated Diagnosis Comments COVID-19 CORONAVIRUS ANTIGEN Routine 11/20/2020 7:03 PM CDT DIFFERENTIAL AUTO STAT 11/20/2020 7:0 3 PM CDT CBC WITH AUTO DIFFERENTIAL STAT 11/20/2020 7:03 PM CDT APTT STAT 11/20/2020 7:03 PM CDT PROTIME-INR STAT 11/20/2020 7:03 PM CDT TYPE AND SCREEN STAT 11/20/2020 7:03 PM CDT ECG 12-LEAD STAT 11/20/2020 6:[address] ELBOW RIGHT WO CONTRAST ED 11/20/2020 4:[address] HEAD AND CERVICAL SPINE WO CONTRAST ED 11/20/2020 3:27 PM CDT XR WRIST RIGHT 3 OR MORE VIEWS ED 11/20/2020 3:18 PM CDT XR RADIUS ULNA RIGHT 2 VIEWS ED 11/20/2020 3:18 PM CDT XR CHEST 1 VIEW ED 11/20/2020 3:16 PM CDT XR PELVIS 1 OR 2 VIEWS ED 3:15 PM CDT XR HUMERUS RIGHT 2 OR MORE VIEWS ED 11/20/2020 3:15 PM CDT XR ELBOW RIGHT 2 OR MORE VIEWS ED 11/20/2020 3:15 PM CDT URINALYSIS AND REFLEX TO MICROSCOPIC AND CULTURE STAT 11/20/2020 3:02 PM CDT URINALYSIS, MICROSCOPIC ONLY STAT 11/20/2020 3:02 PM CDT LIPASE STAT 11/20/2020 1:40 PM CDT COMPREHENSIVE METABOLIC PANEL STAT 11/20/2020 1:40 PM CDT XR TRANSFER OF OUTSIDE FILMS ED 11/20/2020 1:39 PM CDT documented in this encounter Results * (ABNORMAL) Differential, auto (11/20/2020 7:03 PM CDT) Neutrophil abs 3.9 1.7 - 6.5 K/cumm [facility] Imm gran abs 0.0 0.0 - 0.1 K/cumm [facility] Lymphocyte abs 0.4(L) 0.8 - 3.3 K/cumm [facility] Monocyte abs 0.6 0.2 - 0.8 K/cumm [facility] Eosinophil abs 0.1 0.0 - 0.5 K/cumm [facility] Basophil abs 0.0 0.0 - 0.1 K/cumm [facility] Neutrophil pct 76.9 % [facility] Comment: Interpretive Data Percent cell count reference ranges are not reported, since discordance with absolute values may lead to misinterpretation of CBC data. Current Interpretive Data was last revised on 2017. Imm gran pct 0.4 % [facility] Comment: Interpretive Data Percent cell count reference ranges are not reported, since discordance with absolute values may lead to misinterpretation of CBC data. Current Interpretive Data was last revised on 2017. Lymphocyte pct 8.4 % [facility] Comment: Interpretive Data Percent cell count reference ranges are not reported, since discordance with absolute values may lead to misinterpretation of CBC data. Current Interpretive Data was last revised on 2017. Monocyte pct 12.5 % [facility] Comment: Interpretive Data Percent cell count reference ranges are not reported, since discordance with absolute values may lead to misinterpretation of CBC data. Current Interpretive Data was last revised on 2017. Eosinophil pct 1.4 % [facility] Comment: Interpretive Data Percent cell count reference ranges are not reported, since discordance with absolute values may lead to misinterpretation of CBC data. Current Interpretive Data was last revised on 2017. Basophil pct 0.4 % [facility] Comment: Interpretive Data Percent cell count reference ranges are not reported, since discordance with absolute values may lead to misinterpretation of CBC data. Current Interpretive Data was last revised on 2017. Blood specimen (specimen) 11/20/2020 7:03 PM CDT 11/20/2020 7:18 PM CDT us Immanuel Goldstein MD LAB BLOOD ORDERABLES Fin al Result [facility] Department [place] [address] * COVID-19 Coronavirus antigen Nasopharyngeal (11/20/2020 7:03 PM CDT) COVID-19 Ag Presumptive Negative Presumptive Negative [facility] Comment: Interpretive data: Testing was performed under Emergency Use Authorization using the [employer] System for detection of SARS-CoV-2 nucleocapsid antigen. The test characteristics and specimen types have been verified by the performing laboratory. Negative results do not preclude infection and should not be used as the sole basis for treatment or other patient management decisions, including infection control decisions, especially in the presence of clinical signs and symptoms consistent with COVID-19, or in those who have been in contact with the virus. Presumptive negative antigen results are final, however, it is recommended that negative results be confirmed by a molecular testing method in symptomatic patients if clinical suspicion for COVID-19 is still high. This test is intended for detection of SARS-CoV-2 in patients who are suspected to have COVID-19 within the first five days of the onset of symptoms. Specimens collected after day five of illness are more likely to be negative compared to molecular testing methods (RT-PCR based assay). Positive results indicate the presence of SARS-CoV-2 viral antigens but clinical correlation with patient signs and symptoms is necessary to determine infection status. Interpretive data last modified August 2020. First COVID-19 test? No [facility] Employeed in healthcare? No [facility] status? No [facility] Group care resident? No [facility] Hospitalized? No [facility] Is patient in ICU? No [facility] Symptomatic as defined by CDC? No [facility] Nasopharyngeal 11/20/2020 7: 03 PM CDT 11/20/2020 7:15 PM CDT Narrative [facility] - 11/20/2020 7:36 PM CDT Reason for testing?->Screening prior to urgent surgery or procedure Juice Singh MD LAB MICROBIOLOGY - GENER AL ORDERABLES Final Result Performing Organization Address City/[facility]/[place] [address] * aPTT (11/20/2020 7:03 PM CDT) Pathologist [facility] aPTT 28 27 - 37 sec [facility] Comment: Interpretive Data Therapeutic heparin range: 60.0 - 94.0 seconds. Based on correlation with therapeutic heparin activity range of 0.3-0.7 Units/mL. Current interpretive data was last revised on 2020. Blood specimen (specimen) 11/20/2020 7:03 PM CDT 11/20/2020 7:40 PM CDT Immanuel Goldstein MD LAB BLOOD ORDERABLES Fin al Result Performing Organization Address [facility] [place] [address] * Protime-INR (11/20/2020 7:03 PM CDT) [facility] PT 10.6 9.5 - 13.6 sec [facility] INR 1.0 0.9 - 1.2 [facility] Comment: Interpretive data Oral anticoagulant therapeutic ranges: Venous thromboembolism prophylaxis or treatment: 2.0-3.0 CARDIOLOGY Standard range: 2.0-3.0 High-intensity range: 2.5-3.5 Refer to indication-specific guidelines for appropriate target ranges for prosthetic heart valve replacement. Current interpretive data was last revised on 2019. Blood specimen (specimen) 11/20/2020 7:03 PM CDT 11/20/2020 7:40 PM CDT Immanuel Goldstein MD LAB BLOOD ORDERABLES Fin al Result Performing Organization Address [facility] [place] [address] * Type and screen (11/20/2020 7:03 PM CDT) Pathologist [facility] ABO Rh AB Positive [facility] Yolande, indirect Negative [facility] Blood specimen (specimen) 11/20/2020 7:03 PM CDT 11/20/2020 7:17 PM CDT Narrative [facility] - 11/20/2020 8:47 PM CDT Has the patient had Daratumumab or Isatuximab in the past 6 months?->Unknown Immanuel Goldstein MD LAB BLOOD BANK TEST ORDE ROB Final Result Performing Organization Address City/[facility]/ZIP Co de Phone Number [facility] Department [place] [address] * (ABNORMAL) CBC with auto differential (11/20/2020 7:03 PM CDT) [facility] WBC 5.0 3.8 - 9.9 K/cumm [facility] Hgb 12.1 11.9 - 15.5 g/dL [facility] Hct 35.4(L) 35.6 - 45.5 % [facility] Plt 124(L) 150 - 400 K/cumm [facility] MPV 9.9 9.1 - 12.3 fL [facility] RBC 3.78(L) 3.90 - 5.20 M/cumm [facility] MCV 93.7 81.3 - 96.4 fL [facility] MCH 32.0 27.1 - 33.3 pg [facility] MCHC 34.2 32.3 - 35.7 g/dL [facility] RDW CV 13.4 11.1 - 14.9 % [facility] RDW SD 45.1 35.7 - 48.1 fL [facility] NRBC abs 0.00 0.00 - 0.01 K/cumm [facility] Blood specimen (specimen) 11/20/2020 7:03 PM CDT 11/20/2020 7:18 PM CDT Immanuel Goldstein MD LAB BLOOD ORDERABLES Fin al Result [facility] Department [place] [address] * ECG 12-LEAD (11/20/2020 6:25 PM CDT) Narrative [facility] - 11/20/2020 6:25 PM CDT Freddie Bowen MD ? 11/20/2020 ??6:25 PM ECG 12 lead Date/Time: 11/20/2020 6:25 PM Performed by: Freddie Bowen MD Authorized by: Immanuel Goldstein MD Rate: ??ECG rate: ??64 ??ECG rate assessment: normal ?? Rhythm: ??Rhythm: sinus rhythm ?? Ectopy: ??Ectopy: none ?? QRS: ??QRS axis: ??Normal ??QRS intervals: ??Normal Conduction: ??Conduction: abnormal ?Abnormal conduction: incomplete LBBB ?? ST segments: ??ST segments: ??Normal T waves: ??T waves: normal ?? Other findings: ??Other findings: LVH ?? Previous ECG: ??Previous ECG: ??Compared to current ??Similarity: ??No change Interpretation: ??Interpretation: non-specific ?? Recommended Follow-up: ??Recommended follow up: further workup in the ED ?? Comments: ?? EKG performed for trauma. Low risk for ACS Procedure Note Freddie Bowen MD - 11/20/2020 6:25 PM CDT Procedure ECG 12 lead Date/Time: 11/20/2020 6:25 PM Performed by: Freddie Bowen MD Authorized by: Immanuel Goldstein MD Rate: ECG rate: 64 ECG rate assessment: normal Rhythm: Rhythm: sinus rhythm Ectopy: Ectopy: none QRS: QRS axis: Normal QRS intervals: Normal Conduction: Conduction: abnormal Abnormal conduction: incomplete LBBB ST segments: ST segments: Normal T waves: T waves: normal Other findings: Other findings: LVH Previous ECG: Previous ECG: Compared to current Similarity: No change Interpretation: Interpretation: non-specific Recommended Follow-up: Recommended follow up: further workup in the ED Comments: EKG performed for trauma. Low risk for ACS Freddie Bowen MD 11/20/20 1825 us Immanuel Goldstein MD ECG ORDERABLES Final Re sult [facility] * CT Elbow Right WO Contrast (11/20/2020 4:49 PM CDT) Anatomical Region Laterality Modality Upper Extremities Right Computed Tomog maikol 11/20/2020 5:07 PM CDT Impressions 11/20/2020 5:14 PM CDT 1. ??Acute displaced intra-articular fracture of the right radial head, resulting in articular step off of 2 to 3 mm. 2. ??Mildly displaced acute right ulnar coronoid process fracture. 3. ??6 mm linear fracture fragment within the elbow joint along the lateral margin of the capitellum with no definite donor site seen. Dictated by: Arianna Ramirez M.D. The radiology attending physician has personally reviewed this study, and had reviewed and/or edited this written report and agrees with it. Electronically signed by: Chalino Villegas M.D. Narrative 11/20/2020 5:14 PM CDT EXAMINATION: CT ELBOW RIGHT WO CONTRAST HISTORY: Right radial head fracture, follow-up examination. COMPARISON: Prior radiograph of the right forearm was reviewed. FINDINGS: Transaxial computed tomographic images of the right elbow and multiplanar reformats in coronal and sagittal planes are submitted for interpretation. FINDINGS: Review of the forearm radiographs demonstrate radial head fracture with angulation and articular surface step-off. CT images confirm an acute, intra-articular, T-shaped radial head fracture with approximately 1 mm articular surface incongruence. Note is also made of acute chip fracture of coronoid process. There is a 6 mm linear fracture fragment in the joint best appreciated on series 4 image 177 with no definite donor site seen. A cortical step-off is seen involving the capitellum best appreciated on series 4 image 175 that can represent a donor site for the above-mentioned fracture fragment. There is soft tissue swelling about the elbow. There is a small low joint effusion. No other fractures are noted. Limited evaluation of osseous structures are unremarkable. Procedure Note Chalino Villegas MD - 11/20/2020 EXAMINATION: CT ELBOW RIGHT WO CONTRAST HISTORY: Right radial head fracture, follow-up examination. COMPARISON: Prior radiograph of the right forearm was reviewed. FINDINGS: Transaxial computed tomographic images of the right elbow and multiplanar reformats in coronal and sagittal planes are submitted for interpretation. FINDINGS: Review of the forearm radiographs demonstrate radial head fracture with angulation and articular surface step-off. CT images confirm an acute, intra-articular, T-shaped radial head fracture with approximately 1 mm articular surface incongruence. Note is also made of acute chip fracture of coronoid process. There is a 6 mm linear fracture fragment in the joint best appreciated on series 4 image 177 with no definite donor site seen. A cortical step-off is seen involving the capitellum best appreciated on series 4 image 175 that can represent a donor site for the above-mentioned fracture fragment. There is soft tissue swelling about the elbow. There is a small low joint effusion. No other fractures are noted. Limited evaluation of osseous structures are unremarkable. IMPRESSION: 1. Acute displaced intra-articular fracture of the right radial head, resulting in articular step off of 2 to 3 mm. 2. Mildly displaced acute right ulnar coronoid process fracture. 3. 6 mm linear fracture fragment within the elbow joint along the lateral margin of the capitellum with no definite donor site seen. Dictated by: Arianna Ramirez M.D. The radiology attending physician has personally reviewed this study, and had reviewed and/or edited this written report and agrees with it. Electronically signed by: Chalino Villegas M.D. Immanuel Goldstein MD [facility] CT PROCEDURES Final Result * CT Head and Cervical Spine WO Contrast (11/20/2020 3:27 PM CDT) Anatomical Region Laterality Modality Head and Neck N/A Computed Tomogra phy 11/20/2020 3:43 PM CDT Impressions 11/20/2020 4:08 PM CDT 1. No acute intracranial abnormality. 2. Right frontal scalp hematoma. 3.No evidence of acute fracture in the cervical spine. Dictated by: Aniket Earl M.D. The radiology attending physician has personally reviewed this study, and had reviewed and/or edited this written report and agrees with it. Electronically signed by: Wade Almanza M.D. 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 TECHNIQUE: Noncontrast CT of the brain was performed with images acquired from skull base to vertex. Computed tomography of the cervical spine was performed without contrast according to standard protocol. COMPARISON: Head CT dated 08/15/2020. FINDINGS: There is a right frontal scalp hematoma. 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 ??There is no acute intracranial hemorrhage. Ventricles are of normal size and morphology. No mass effect or midline shift is present. The mcrae-white matter differentiation is normal. The visualized portions of the orbits are normal. The visualized portions of the mastoids are normal. The visualized portions of the paranasal sinuses are normal. No fractures are identified. Minimal anterolisthesis of C7 on T1 is present. There is no acute fracture. Vertebral bodies are normal in height without compression fractures. The craniocervical junction is normal. There is multilevel degenerative disc disease. Multilevel facet arthropathy are seen. No soft tissue abnormality is identified. ??Subcentimeter thyroid nodules are present. 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 ??Few prominent nonenlarged right supraclavicular lymph nodes are unchanged from recent CT neck. ??The right C7 inferior articular process sclerotic lesion is better appreciated on recent prior CT. 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 TECHNIQUE: Noncontrast CT of the brain was performed with images acquired from skull base to vertex. Computed tomography of the cervical spine was performed without contrast according to standard protocol. COMPARISON: Head CT dated 08/15/2020. FINDINGS: There is a right frontal scalp hematoma. 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 There is no acute intracranial hemorrhage. Ventricles are of normal size and morphology. No mass effect or midline shift is present. The mcrae-white matter differentiation is normal. The visualized portions of the orbits are normal. The visualized portions of the mastoids are normal. The visualized portions of the paranasal sinuses are normal. No fractures are identified. Minimal anterolisthesis of C7 on T1 is present. There is no acute fracture. Vertebral bodies are normal in height without compression fractures. The craniocervical junction is normal. There is multilevel degenerative disc disease. Multilevel facet arthropathy are seen. No soft tissue abnormality is identified. Subcentimeter thyroid nodules are present. 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 Few prominent nonenlarged right supraclavicular lymph nodes are unchanged from recent CT neck. The right C7 inferior articular process sclerotic lesion is better appreciated on recent prior CT. IMPRESSION: 1. No acute intracranial abnormality. 2. Right frontal scalp hematoma. 3.No evidence of acute fracture in the cervical spine. Dictated by: Aniket Earl M.D. The radiology attending physician has personally reviewed this study, and had reviewed and/or edited this written report and agrees with it. Electronically signed by: Wade Almanza M.D. Immanuel Goldstein MD IMG CT PROCEDURES Final Result * XR Wrist Right 3 or More Views (11/20/2020 3:18 PM CDT) Anatomical Region Laterality Modality Upper Extremities, Wrist Right Compute d Radiography 11/20/2020 3:39 PM CDT Impressions 11/20/2020 3:47 PM CDT 1. ??Mildly displaced intra-articular fracture of the right radial head, resulting in a 1 to 2 mm articular step off. There may also be an ulnar coronoid process fracture. 2. ??No radiographic evidence of acute pelvic fracture. Dictated by: Jose Padilla M.D. The radiology attending physician has personally reviewed this study, and had reviewed and/or edited this written report and agrees with it. Electronically signed by: Chalino Villegas M.D. Narrative 11/20/2020 3:47 PM CDT EXAMINATION: 1. ??XR ELBOW RIGHT 2 VIEWS 2. ??XR WRIST RIGHT 3 OR MORE VIEWS 3. ??XR PELVIS 1 OR 2 VIEWS 4. ??XR RADIUS ULNA RIGHT 2 VIEWS 5. ??XR HUMERUS RIGHT 2 OR MORE VIEWS HISTORY: Fracture COMPARISON: ??CT chest/abdomen/pelvis 11/11/2020 FINDINGS: ?? Pelvis: Clips project over the mid pelvis. ??Staple line from prior bowel surgery is partially visualized projecting over the right mid abdomen. ??No acute displaced fracture of the pelvis. ??Prostate calcifications project over the lower pelvis. Right humerus/elbow/radius ulna/wrist: No acute displaced fracture of the right humerus. During the course of the study, the overlying the right elbow brace had been removed. ??There is a fracture of the right radial head, with intra-articular extension, and mild displacement. ??There is a large right elbow joint effusion. ??The right radial head is in normal alignment with respect to the capitellum. No additional acute displaced fractures of the mid and distal portions of the right radius and ulna. ??No acute displaced fracture of the right wrist. ??The right carpal bones appear well aligned. There is positive ulnar variance and a cyst in the lunate bone. Procedure Note Chalino Villegas MD - 11/20/2020 EXAMINATION: 1. XR ELBOW RIGHT 2 VIEWS 2. XR WRIST RIGHT 3 OR MORE VIEWS 3. XR PELVIS 1 OR 2 VIEWS 4. XR RADIUS ULNA RIGHT 2 VIEWS 5. XR HUMERUS RIGHT 2 OR MORE VIEWS HISTORY: Fracture COMPARISON: CT chest/abdomen/pelvis 11/11/2020 FINDINGS: Pelvis: Clips project over the mid pelvis. Staple line from prior bowel surgery is partially visualized projecting over the right mid abdomen. No acute displaced fracture of the pelvis. Prostate calcifications project over the lower pelvis. Right humerus/elbow/radius ulna/wrist: No acute displaced fracture of the right humerus. During the course of the study, the overlying the right elbow brace had been removed. There is a fracture of the right radial head, with intra-articular extension, and mild displacement. There is a large right elbow joint effusion. The right radial head is in normal alignment with respect to the capitellum. No additional acute displaced fractures of the mid and distal portions of the right radius and ulna. No acute displaced fracture of the right wrist. The right carpal bones appear well aligned. There is positive ulnar variance and a cyst in the lunate bone. IMPRESSION: 1. Mildly displaced intra-articular fracture of the right radial head, resulting in a 1 to 2 mm articular step off. There may also be an ulnar coronoid process fracture. 2. No radiographic evidence of acute pelvic fracture. Dictated by: Jose Padilla M.D. The radiology attending physician has personally reviewed this study, and had reviewed and/or edited this written report and agrees with it. Electronically signed by: Chalino Villegas M.D. Immanuel Goldstein MD IM XR PROCEDURES Final Result * XR Radius Ulna Right 2 Views (11/20/2020 3:18 PM CDT) Anatomical Region Laterality Modality Upper Extremities, Forearm Right Compu omar Radiography 11/20/2020 3:39 PM CDT Impressions 11/20/2020 3:47 PM CDT 1. ??Mildly displaced intra-articular fracture of the right radial head, resulting in a 1 to 2 mm articular step off. There may also be an ulnar coronoid process fracture. 2. ??No radiographic evidence of acute pelvic fracture. Dictated by: Jose Padilla M.D. The radiology attending physician has personally reviewed this study, and had reviewed and/or edited this written report and agrees with it. Electronically signed by: Chalino Villegas M.D. Narrative 11/20/2020 3:47 PM CDT EXAMINATION: 1. ??XR ELBOW RIGHT 2 VIEWS 2. ??XR WRIST RIGHT 3 OR MORE VIEWS 3. ??XR PELVIS 1 OR 2 VIEWS 4. ??XR RADIUS ULNA RIGHT 2 VIEWS 5. ??XR HUMERUS RIGHT 2 OR MORE VIEWS HISTORY: Fracture COMPARISON: ??CT chest/abdomen/pelvis 11/11/2020 FINDINGS: ?? Pelvis: Clips project over the mid pelvis. ??Staple line from prior bowel surgery is partially visualized projecting over the right mid abdomen. ??No acute displaced fracture of the pelvis. ??Prostate calcifications project over the lower pelvis. Right humerus/elbow/radius ulna/wrist: No acute displaced fracture of the right humerus. During the course of the study, the overlying the right elbow brace had been removed. ??There is a fracture of the right radial head, with intra-articular extension, and mild displacement. ??There is a large right elbow joint effusion. ??The right radial head is in normal alignment with respect to the capitellum. No additional acute displaced fractures of the mid and distal portions of the right radius and ulna. ??No acute displaced fracture of the right wrist. ??The right carpal bones appear well aligned. There is positive ulnar variance and a cyst in the lunate bone. Procedure Note Chalino Villegas MD - 11/20/2020 EXAMINATION: 1. XR ELBOW RIGHT 2 VIEWS 2. XR WRIST RIGHT 3 OR MORE VIEWS 3. XR PELVIS 1 OR 2 VIEWS 4. XR RADIUS ULNA RIGHT 2 VIEWS 5. XR HUMERUS RIGHT 2 OR MORE VIEWS HISTORY: Fracture COMPARISON: CT chest/abdomen/pelvis 11/11/2020 FINDINGS: Pelvis: Clips project over the mid pelvis. Staple line from prior bowel surgery is partially visualized projecting over the right mid abdomen. No acute displaced fracture of the pelvis. Prostate calcifications project over the lower pelvis. Right humerus/elbow/radius ulna/wrist: No acute displaced fracture of the right humerus. During the course of the study, the overlying the right elbow brace had been removed. There is a fracture of the right radial head, with intra-articular extension, and mild displacement. There is a large right elbow joint effusion. The right radial head is in normal alignment with respect to the capitellum. No additional acute displaced fractures of the mid and distal portions of the right radius and ulna. No acute displaced fracture of the right wrist. The right carpal bones appear well aligned. There is positive ulnar variance and a cyst in the lunate bone. IMPRESSION: 1. Mildly displaced intra-articular fracture of the right radial head, resulting in a 1 to 2 mm articular step off. There may also be an ulnar coronoid process fracture. 2. No radiographic evidence of acute pelvic fracture. Dictated by: Jose Padilla M.D. The radiology attending physician has personally reviewed this study, and had reviewed and/or edited this written report and agrees with it. Electronically signed by: Chalino Villegas M.D. Immanuel Goldstein MD IM XR PROCEDURES Final Result * XR Chest 1 View (11/20/2020 3:16 PM CDT) Anatomical Region Laterality Modality Body, Chest N/A Computed Radiogr aphy 11/20/2020 3:23 PM CDT Impressions 11/20/2020 3:23 PM CDT A portable frontal view of the chest is compared to 11/11/2020. Lung volumes are small, resulting in vascular crowding and mild right and moderate left bibasilar atelectasis. There is no definite pleural effusion. There is no pneumothorax. The cardiomediastinal silhouette is normal. Electronically signed by: Chalino Villegas M.D. Narrative 11/20/2020 3:23 PM CDT EXAMINATION: ??XR CHEST 1 VIEW HISTORY: ??fall Procedure Note Chalino Villegas MD - 11/20/2020 EXAMINATION: XR CHEST 1 VIEW HISTORY: fall IMPRESSION: A portable frontal view of the chest is compared to 11/11/2020. Lung volumes are small, resulting in vascular crowding and mild right and moderate left bibasilar atelectasis. There is no definite pleural effusion. There is no pneumothorax. The cardiomediastinal silhouette is normal. Electronically signed by: Chalino Villegas M.D. Immanuel Goldstein MD IMG XR PROCEDURES Final Result * XR Pelvis 1 or 2 Views (11/20/2020 3:15 PM CDT) Anatomical Region Laterality Modality Body, Pelvis N/A Computed Radiogr aphy 11/20/2020 3:39 PM CDT Impressions 11/20/2020 3:47 PM CDT 1. ??Mildly displaced intra-articular fracture of the right radial head, resulting in a 1 to 2 mm articular step off. There may also be an ulnar coronoid process fracture. 2. ??No radiographic evidence of acute pelvic fracture. Dictated by: Jose Padilla M.D. The radiology attending physician has personally reviewed this study, and had reviewed and/or edited this written report and agrees with it. Electronically signed by: Chalino Villegas M.D. Narrative 11/20/2020 3:47 PM CDT EXAMINATION: 1. ??XR ELBOW RIGHT 2 VIEWS 2. ??XR WRIST RIGHT 3 OR MORE VIEWS 3. ??XR PELVIS 1 OR 2 VIEWS 4. ??XR RADIUS ULNA RIGHT 2 VIEWS 5. ??XR HUMERUS RIGHT 2 OR MORE VIEWS HISTORY: Fracture COMPARISON: ??CT chest/abdomen/pelvis 11/11/2020 FINDINGS: ?? Pelvis: Clips project over the mid pelvis. ??Staple line from prior bowel surgery is partially visualized projecting over the right mid abdomen. ??No acute displaced fracture of the pelvis. ??Prostate calcifications project over the lower pelvis. Right humerus/elbow/radius ulna/wrist: No acute displaced fracture of the right humerus. During the course of the study, the overlying the right elbow brace had been removed. ??There is a fracture of the right radial head, with intra-articular extension, and mild displacement. ??There is a large right elbow joint effusion. ??The right radial head is in normal alignment with respect to the capitellum. No additional acute displaced fractures of the mid and distal portions of the right radius and ulna. ??No acute displaced fracture of the right wrist. ??The right carpal bones appear well aligned. There is positive ulnar variance and a cyst in the lunate bone. Procedure Note Chalino Villegas MD - 11/20/2020 EXAMINATION: 1. XR ELBOW RIGHT 2 VIEWS 2. XR WRIST RIGHT 3 OR MORE VIEWS 3. XR PELVIS 1 OR 2 VIEWS 4. XR RADIUS ULNA RIGHT 2 VIEWS 5. XR HUMERUS RIGHT 2 OR MORE VIEWS HISTORY: Fracture COMPARISON: CT chest/abdomen/pelvis 11/11/2020 FINDINGS: Pelvis: Clips project over the mid pelvis. Staple line from prior bowel surgery is partially visualized projecting over the right mid abdomen. No acute displaced fracture of the pelvis. Prostate calcifications project over the lower pelvis. Right humerus/elbow/radius ulna/wrist: No acute displaced fracture of the right humerus. During the course of the study, the overlying the right elbow brace had been removed. There is a fracture of the right radial head, with intra-articular extension, and mild displacement. There is a large right elbow joint effusion. The right radial head is in normal alignment with respect to the capitellum. No additional acute displaced fractures of the mid and distal portions of the right radius and ulna. No acute displaced fracture of the right wrist. The right carpal bones appear well aligned. There is positive ulnar variance and a cyst in the lunate bone. IMPRESSION: 1. Mildly displaced intra-articular fracture of the right radial head, resulting in a 1 to 2 mm articular step off. There may also be an ulnar coronoid process fracture. 2. No radiographic evidence of acute pelvic fracture. Dictated by: Jose Padilla M.D. The radiology attending physician has personally reviewed this study, and had reviewed and/or edited this written report and agrees with it. Electronically signed by: Chalino Villegas M.D. Immanuel Goldstein MD IM XR PROCEDURES Final Result * XR Humerus Right 2 or More Views (11/20/2020 3:15 PM CDT) Anatomical Region Laterality Modality Upper Extremities, Upper Arm Right Com puted Radiography 11/20/2020 3:39 PM CDT Impressions 11/20/2020 3:47 PM CDT 1. ??Mildly displaced intra-articular fracture of the right radial head, resulting in a 1 to 2 mm articular step off. There may also be an ulnar coronoid process fracture. 2. ??No radiographic evidence of acute pelvic fracture. Dictated by: Jose Padilla M.D. The radiology attending physician has personally reviewed this study, and had reviewed and/or edited this written report and agrees with it. Electronically signed by: Chalino Villegas M.D. Narrative 11/20/2020 3:47 PM CDT EXAMINATION: 1. ??XR ELBOW RIGHT 2 VIEWS 2. ??XR WRIST RIGHT 3 OR MORE VIEWS 3. ??XR PELVIS 1 OR 2 VIEWS 4. ??XR RADIUS ULNA RIGHT 2 VIEWS 5. ??XR HUMERUS RIGHT 2 OR MORE VIEWS HISTORY: Fracture COMPARISON: ??CT chest/abdomen/pelvis 11/11/2020 FINDINGS: ?? Pelvis: Clips project over the mid pelvis. ??Staple line from prior bowel surgery is partially visualized projecting over the right mid abdomen. ??No acute displaced fracture of the pelvis. ??Prostate calcifications project over the lower pelvis. Right humerus/elbow/radius ulna/wrist: No acute displaced fracture of the right humerus. During the course of the study, the overlying the right elbow brace had been removed. ??There is a fracture of the right radial head, with intra-articular extension, and mild displacement. ??There is a large right elbow joint effusion. ??The right radial head is in normal alignment with respect to the capitellum. No additional acute displaced fractures of the mid and distal portions of the right radius and ulna. ??No acute displaced fracture of the right wrist. ??The right carpal bones appear well aligned. There is positive ulnar variance and a cyst in the lunate bone. Procedure Note Chalino Villegas MD - 11/20/2020 EXAMINATION: 1. XR ELBOW RIGHT 2 VIEWS 2. XR WRIST RIGHT 3 OR MORE VIEWS 3. XR PELVIS 1 OR 2 VIEWS 4. XR RADIUS ULNA RIGHT 2 VIEWS 5. XR HUMERUS RIGHT 2 OR MORE VIEWS HISTORY: Fracture COMPARISON: CT chest/abdomen/pelvis 11/11/2020 FINDINGS: Pelvis: Clips project over the mid pelvis. Staple line from prior bowel surgery is partially visualized projecting over the right mid abdomen. No acute displaced fracture of the pelvis. Prostate calcifications project over the lower pelvis. Right humerus/elbow/radius ulna/wrist: No acute displaced fracture of the right humerus. During the course of the study, the overlying the right elbow brace had been removed. There is a fracture of the right radial head, with intra-articular extension, and mild displacement. There is a large right elbow joint effusion. The right radial head is in normal alignment with respect to the capitellum. No additional acute displaced fractures of the mid and distal portions of the right radius and ulna. No acute displaced fracture of the right wrist. The right carpal bones appear well aligned. There is positive ulnar variance and a cyst in the lunate bone. IMPRESSION: 1. Mildly displaced intra-articular fracture of the right radial head, resulting in a 1 to 2 mm articular step off. There may also be an ulnar coronoid process fracture. 2. No radiographic evidence of acute pelvic fracture. Dictated by: Jose Padilla M.D. The radiology attending physician has personally reviewed this study, and had reviewed and/or edited this written report and agrees with it. Electronically signed by: Chalino Villegas M.D. Immanuel Goldstein MD IMG XR PROCEDURES Final Result * XR Elbow Right 2 or More Views (11/20/2020 3:15 PM CDT) Anatomical Region Laterality Modality Upper Extremities, Elbow Right Compute d Radiography 11/20/2020 3:39 PM CDT Impressions 11/20/2020 3:47 PM CDT 1. ??Mildly displaced intra-articular fracture of the right radial head, resulting in a 1 to 2 mm articular step off. There may also be an ulnar coronoid process fracture. 2. ??No radiographic evidence of acute pelvic fracture. Dictated by: Jose Padilla M.D. The radiology attending physician has personally reviewed this study, and had reviewed and/or edited this written report and agrees with it. Electronically signed by: Chalino Villegas M.D. Narrative 11/20/2020 3:47 PM CDT EXAMINATION: 1. ??XR ELBOW RIGHT 2 VIEWS 2. ??XR WRIST RIGHT 3 OR MORE VIEWS 3. ??XR PELVIS 1 OR 2 VIEWS 4. ??XR RADIUS ULNA RIGHT 2 VIEWS 5. ??XR HUMERUS RIGHT 2 OR MORE VIEWS HISTORY: Fracture COMPARISON: ??CT chest/abdomen/pelvis 11/11/2020 FINDINGS: ?? Pelvis: Clips project over the mid pelvis. ??Staple line from prior bowel surgery is partially visualized projecting over the right mid abdomen. ??No acute displaced fracture of the pelvis. ??Prostate calcifications project over the lower pelvis. Right humerus/elbow/radius ulna/wrist: No acute displaced fracture of the right humerus. During the course of the study, the overlying the right elbow brace had been removed. ??There is a fracture of the right radial head, with intra-articular extension, and mild displacement. ??There is a large right elbow joint effusion. ??The right radial head is in normal alignment with respect to the capitellum. No additional acute displaced fractures of the mid and distal portions of the right radius and ulna. ??No acute displaced fracture of the right wrist. ??The right carpal bones appear well aligned. There is positive ulnar variance and a cyst in the lunate bone. Procedure Note Chalino Villegas MD - 11/20/2020 EXAMINATION: 1. XR ELBOW RIGHT 2 VIEWS 2. XR WRIST RIGHT 3 OR MORE VIEWS 3. XR PELVIS 1 OR 2 VIEWS 4. XR RADIUS ULNA RIGHT 2 VIEWS 5. XR HUMERUS RIGHT 2 OR MORE VIEWS HISTORY: Fracture COMPARISON: CT chest/abdomen/pelvis 11/11/2020 FINDINGS: Pelvis: Clips project over the mid pelvis. Staple line from prior bowel surgery is partially visualized projecting over the right mid abdomen. No acute displaced fracture of the pelvis. Prostate calcifications project over the lower pelvis. Right humerus/elbow/radius ulna/wrist: No acute displaced fracture of the right humerus. During the course of the study, the overlying the right elbow brace had been removed. There is a fracture of the right radial head, with intra-articular extension, and mild displacement. There is a large right elbow joint effusion. The right radial head is in normal alignment with respect to the capitellum. No additional acute displaced fractures of the mid and distal portions of the right radius and ulna. No acute displaced fracture of the right wrist. The right carpal bones appear well aligned. There is positive ulnar variance and a cyst in the lunate bone. IMPRESSION: 1. Mildly displaced intra-articular fracture of the right radial head, resulting in a 1 to 2 mm articular step off. There may also be an ulnar coronoid process fracture. 2. No radiographic evidence of acute pelvic fracture. Dictated by: Jose Padilla M.D. The radiology attending physician has personally reviewed this study, and had reviewed and/or edited this written report and agrees with it. Electronically signed by: Chalino Villegas M.D. Immanuel Goldstein MD IM XR PROCEDURES Final Result * (ABNORMAL) Urinalysis, microscopic only (11/20/2020 3:02 PM CDT) WBC, ur 0-5 0 - 5 /HPF [facility] RBC, ur 0-2 0 - 2 /HPF [facility] Epithelial cells, squamous, ur 1-5 0 - 5 /HPF [facility] Mucous, ur Present(A) [facility] Culture Reflex Comment Reflex conditions for urine culture (WBC >10) not met. [facility] Urine, bladder 11/20/2020 3: 02 PM CDT 11/20/2020 5:44 PM CDT us Immanuel Goldstein MD LAB URINE ORDERABLES Fin al Result Performing Organization Address [facility] Co de Phone Number [facility] Department [place] [address] * (ABNORMAL) Urinalysis reflex to microscopic and culture Urine, bladder (11/20/2020 3:02 PM CDT) Color, ur Straw Yellow [facility] Clarity, ur Clear Clear [facility] Specific gravity, ur 1.013 1.010 - 1.025 [facility] pH, urine 6 [facility] Protein, ur ql Negative Negative [facility] Glucose, ur ql Negative Negative [facility] Ketones, ur Negative Negative [facility] Bilirubin, ur Negative Negative [facility] Blood, ur Negative Negative [facility] Comment:Ascorbic acid identi fied in urine; possible false negative blood result. A microscopic exam will be added to identify RBCs. Urobilinogen, ur <2.0 <2.0 mg/dL [facility] Nitrite, ur Negative Negative [facility] Leukocyte esterase, ur 1+(A) Negative [facility] UA reflex comment Reflex to microscopic UA will be performed. [facility] Urine, bladder 11/20/2020 3: 02 PM CDT 11/20/2020 5:44 PM CDT Narrative [facility] - 11/20/2020 6:00 PM CDT ?? Urine pH is affected by diet, medications, systemic acid-base disturbances, and renal tubular function. ??pH may affect urinary stone formation. ??For example, urine pH below 6.0 may help reduce the tendency for calcium phosphate stones and pH greater than 6.0 may reduce the tendency for uric acid stone formation. Source: [employer]. Last revised 07-18-2017 us Immanuel Goldstein MD LAB MICROBIOLOGY - GENER AL ORDERABLES Final Result Performing Organization Address City/[facility]/ZIP Co de Phone Number [facility] Department [place] [address] * Lipase (11/20/2020 1:40 PM CDT) Pathologist [facility] Lipase 21 10 - 99 Units/L [facility] Blood specimen (specimen) 11/20/2020 1:40 PM CDT 11/20/2020 3:15 PM CDT Immanuel Goldstein MD LAB BLOOD ORDERABLES Fin al Result Performing Organization Address [facility] Co de Phone Number [facility] Department [place] [address] * Comprehensive metabolic panel (11/20/2020 1:40 PM CDT) Pathologist [facility] Sodium 138 135 - 145 mmol/L [facility] Potassium, pl See Comment 3.3 - 4.9 mmol/L [facility] Comment:Credited; Hemolyzed Specimen Chloride 104 97 - 110 mmol/L [facility] CO2 27 22 - 32 mmol/L [facility] Anion gap 7 2 - 15 mmol/L [facility] BUN 12 8 - 25 mg/dL [facility] Creatinine 0.88 0.60 - 1.10 mg/dL [facility] Glucose 139 70 - 199 mg/dL [facility] Comment: [...] 2017. Calcium 10.1 8.5 - 10.3 mg/dL [facility] Bilirubin, total 0.5 0.1 - 1.2 mg/dL [facility] Protein, pl 6.7 6.5 - 8.5 g/dL [facility] Albumin 4.2 3.5 - 5.0 g/dL [facility] Alk phos 75 40 - 130 Units/L [facility] Comment:Hemolyzed; result ma y be falsely decreased ALT See Comment 7 - 45 Units/L [facility] Comment:Credited; Hemolyzed Specimen AST See Comment 10 - 45 Units/L [facility] Comment:Credited; Hemolyzed Specimen Blood specimen (specimen) 11/20/2020 1:40 PM CDT 11/20/2020 3:15 PM CDT Immanuel Goldstein MD LAB BLOOD ORDERABLES Fin al Result Performing Organization Address [facility] Co de Phone Number [facility] Department [place] [address] * XR Outside Reference (11/20/2020 1:39 PM CDT) Impressions [facility] - 11/20/2020 1:39 PM CDT These images are for Reference purposes only and have not been reviewed by [facility]. ??There will be no report generated by a [facility] Radiologist. Narrative [facility] - 11/20/2020 1:39 PM CDT EXAMINATION: ??Images For Reference Purposes Only Immanuel Goldstein MD IMG XR PROCEDURES Final Result Performing Organization Address [facility] Co de Phone Number [email or web address] documented in this encounter Visit Diagnoses Diagnosis Closed displaced fracture of head of right radius- Primary Closed displaced fracture of head of right radius, initial encounter Traumatic hematoma of forehead, initial encounter documented in this encounter Admitting Diagnoses Diagnosis Closed displaced fracture of head of right radius documented in this encounter Administered Medications Inactive Administered Medications - up to 3 most recent administrations Medication Order MAR Action Action Date Dose Rate Site acetaminophen (TYLENOL) tablet 1,000 mg 1,000 mg, oral, Once, On 11/20/20 at 1943, For 1 dose Given 11/20/2020 7:51 PM CDT 1,000 mg diphenhydrAMINE (BENADRYL) 50 mg/mL injection - ADS Override Pull Starting on 11/20/20 at 1628, For 1 dose, Created by cabinet override Given 11/20/2020 4:34 PM CDT 25 mg HYDROmorphone (DILAUDID) 1 mg/mL injection - ADS Override Pull Starting on 11/20/20 at 1749, For 1 dose, Created by cabinet override Given 11/20/2020 5:53 PM CDT 1 mg lidocaine PF (XYLOCAINE) 10 mg/mL (1 %) preservative free injection 100 mg 100 mg (10 mL), infiltration, Once, On 11/20/20 at 1741, For 1 dose Given 11/20/2020 5:54 PM CDT 100 mg morphine injection 2 mg 2 mg, intravenous, Administer over 4 Minutes, Once, On 11/20/20 at 1532, For 1 dose Given 11/20/2020 3:39 PM CDT 2 mg morphine injection 4 mg 4 mg, intravenous, Administer over 4 Minutes, Once, On 11/20/20 at 1343, For 1 dose Given 11/20/2020 2:29 PM CDT 4 mg oxyCODONE (ROXICODONE) tablet 5 mg 5 mg, oral, Once, On 11/20/20 at 1943, For 1 dose, Indications: PainIndications:Pain Given 11/20/2020 7:51 PM CDT 5 mg documented in this encounter Active and Recently Administered Medications Times are shown in CDT. Scheduled Medication Order 11/18/2020 11/19/2020 11/20/2020 acetaminophen (TYLENOL) tablet 1,000 mg (COMPLETED) 1,000 mg, oral, Once, On 11/20/20 at 1943, For 1 dose 195 (Given - Provid er: Tamar Pagan RN) diphenhydrAMINE (BENADRYL) tab/cap 25 mg 25 mg, oral, Once, On 11/20/20 at 1641, For 1 dose 1754 (Not Given - Pr ovider: Hien Garcia RN - Reason: Other - Comment: given iv) lidocaine PF (XYLOCAINE) 10 mg/mL (1 %) preservative free injection 100 mg (COMPLETED) 100 mg (10 mL), infiltration, Once, On 11/20/20 at 1741, For 1 dose 1754 (Given - Provid er: Hien Garcia RN - Comment: rt arm) morphine injection 2 mg (COMPLETED) 2 mg, intravenous, Administer over 4 Minutes, Once, On 11/20/20 at 1532, For 1 dose 1539 (Given - Provid er: Hien Garcia RN) morphine injection 4 mg (COMPLETED) 4 mg, intravenous, Administer over 4 Minutes, Once, On 11/20/20 at 1343, For 1 dose 1429 (Given - Provid er: Hien Garcia RN) morphine injection 4 mg 4 mg, intravenous, Administer over 4 Minutes, Once, On 11/20/20 at 1716, For 1 dose 1803 (Not Given - Pr ovider: Hien Garcia RN - Reason: Order Discontinued) oxyCODONE (ROXICODONE) tablet 5 mg (COMPLETED) 5 mg, oral, Once, On 11/20/20 at 1943, For 1 dose, Indications: Pain 1950 (Given - Provid er: Tamar Pagan RN) No Frequency Medication Order 11/18/2020 11/19/2020 11/20/2020 diphenhydrAMINE (BENADRYL) 50 mg/mL injection - ADS Override Pull (COMPLETED) Starting on 11/20/20 at 1628, For 1 dose, Created by cabinet override 1634 (Given - Provid er: Hien Garcia RN) HYDROmorphone (DILAUDID) 1 mg/mL injection - ADS Override Pull (COMPLETED) Starting on 11/20/20 at 1749, For 1 dose, Created by cabinet override 1753 (Given - Provid er: Hien Garcia RN) documented in this encounter Orders Medications Ordered That Brett ht Not Have Been Administered Count Last Ordered Date First Ordered Date diphenhydrAMINE (BENADRYL) tab/cap 25 mg 1 11/20/2020 morphine injection 4 mg 2 11/20/2020 Consult Count Last Ordered Date First Orde red Date CONSULT TO ORTHO-TRAUMA 1 11/20/2020 documented in this encounter Care Teams Security Police Officer Relationship Specialty Start Date End Date Julio César Briseno MD PCP - General 10/01/16 Eren Cr MD Referring Physician Medical Oncology 11/25/18 Yohana Bowen MD Radiation Oncologist Radiation Oncology 11/25/18 Sabrina Willard NP [address] [place] [address] Nurse Practitioner Medical Oncology 08/17/20 11/26/21 documented as of this encounter
--- OUTSIDE RECORDS SUMMARY | 2024-06-25 22:29 | XMS_ITS | Encounter Summary ---
Author Organization [facility] Address [address] [place] [address] Phone Care Team Providers Care Coating Engineer Name Role Phone Julio César Briseno MD Primary Care Provider [phone] Eren Cr MD Unavailable Yohana Bowen MD Unavailable Sabrina Willard NP Unavailable Encounter Details Date Type Department Care Team (Late st Contact Info) Description 12/28/2020 Orders Only [facility] [address] [facility] [address] [facility] 7th [place] [address] [place] [id number] Eren Cr MD [address] [facility] [address] [place] [address] Neuroendocrine tumor (Primary Dx) Social History Tobacco Use Types Packs/Day Years Used Date Smoking Tobacco: Never Smokeless Tobacco: Never Alcohol Use Standard Drinks/Week Comments Yes 1 (1 standard drink = 0.6 oz pur e alcohol) Comments No Sex and Gender Information Value Date Recorded Sex Assigned at Not on file Legal Sex Female 2:41 PM CLINICAL TECH Gender Identity Not on file Sexual Orientation Straight 02/19/2021 9: 29 AM CDT Occupation Industry Job Start Date Job End Date retired Not on file Not on file Not on file documented as of this encounter Plan of Treatment Not on file documented as of this encounter Results * (ABNORMAL) Lipid panel (01/02/2021 2:17 PM CDT) Cholesterol 133 30 - 199 mg/dL [facility] Comment: [...] Data was last revised on 2018. Triglycerides 253(H) <=149 mg/dL [facility] Comment: Interpretive Data [...] revised on 2018. HDL 57 >=40 mg/dL [facility] Comment: Interpretive Data [...] was last revised on 2018. LDL, calculated 25 <=129 mg/dL [facility] Comment: Interpretive Data [...] was last revised on 2018. Non-HDL Cholesterol 76 mg/dL [facility] Comment: Interpretive Data [...] 2018. 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
--- OUTSIDE RECORDS SUMMARY | 2024-06-25 22:29 | XMS_ITS | Encounter Summary ---
Author Organization [facility] Healthcare Address [address] [place] [address] Care Team Providers Care Cleaning Staff Supervisor Name Role Phone Julio César Briseno MD Primary Care Provider [phone] Eren Cr MD Unavailable [phone] Yohana Bowen MD Unavailable Sabrina Willard NP Unavailable [phone] Encounter Details Date Type Department Care Team (Late st Contact Info) Description 12/06/2020 3:45 PM CDT Lab [address] [address] Social History Tobacco Use Types Packs/Day Years Used Date Smoking Tobacco: Never Smokeless Tobacco: Never Alcohol Use Standard Drinks/Week Comments Yes 1 (1 standard drink = 0.6 oz pur e alcohol) Comments No Sex and Gender Information Value Date Recorded Sex Assigned at Not on file 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 Gender Identity Not on file Sexual Orientation Straight 02/19/2021 9: 29 AM CDT Occupation Industry Job Start Date Job End Date retired Not on file Not on file Not on file documented as of this encounter Plan of Treatment Not on file documented as of this encounter Procedures Procedure Name Priority Date/Time Associated Diagnosis Comments LIPID PANEL Routine 12/06/2020 3:09 PM CDT documented in this encounter Results * (ABNORMAL) Lipid panel (12/06/2020 3:09 PM CDT) [facility] Cholesterol 117 30 - 199 mg/dL [facility] Comment: Interpretive Data Ages < or [...] revised on 2018. Triglycerides 185(H) <=149 mg/dL [facility] Comment: Interpretive Data Ages < or [...] on 2018. HDL 47 >=40 mg/dL [facility] Comment: Interpretive Data [...] was last revised on 2018. LDL, calculated 33 <=129 mg/dL [facility] Comment: Interpretive Data Ages < or [...] was last revised on 2018. Non-HDL Cholesterol 70 mg/dL [facility] Comment: Interpretive Data Ages < or [...] last revised on 2018. Chol/HDL ratio 2 [facility] Blood specimen (specimen) 12/06/2020 3:09 PM CDT 12/06/2020 3:41 PM CDT us Notinfile Unknown LAB BLOOD ORDERABLES Final Res ult [facility] Department [place] [address] documented in this encounter Visit Diagnoses Not on filedocumented in this encounter Care Teams Cleaning Staff Supervisor Relationship Specialty Start Date End Date Julio César Briseno MD PCP - General 10/01/16 Eren Cr MD Referring Physician Medical Oncology 11/25/18 Yohana Bowen MD Radiation Oncologist Radiation Oncology 11/25/18 Sabrina Willard NP [address] [place] [address] Nurse Practitioner Medical Oncology 08/17/20 11/26/21 documented as of this encounter
--- OUTSIDE RECORDS SUMMARY | 2024-06-25 22:29 | XMS_ITS | Encounter Summary ---
Author Organization [facility] Healthcare Address [address] [place] [address] Care Team Providers Care Proposal Consultant Name Role Phone Julio César Briseno MD Primary Care Provider [phone] Eren Cr MD Unavailable [phone] Yohana Bowen MD Unavailable Sabrina Willard NP Unavailable [phone] Reason for Visit * Reason Comments Psychotherapy Encounter Details Date Type Department Care Team (Late st Contact Info) Description 10/26/2020 11:00 AM CDT Clinical Support [address] 1st [place] [id number] Neeru Nails, PhD [facility] [place] [address] Social History Tobacco Use Types Packs/Day Years Used Date Smoking Tobacco: Never Smokeless Tobacco: Never Alcohol Use Standard Drinks/Week Comments Yes 1 (1 standard drink = 0.6 oz pur e alcohol) Comments No Sex and Gender Information Value Date Recorded Sex Assigned at Not on file Legal 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 Return integrated care visit was completed via telehealth. Written informed consent for telehealth was obtained from patient prior to outset of evaluation. Potential risk and benefits of telehealth sessions were discussed with patient. Requirements for telehealth sessions were also covered, including need for private space, limited distractions, no one else present without both parties consent. Back-up plan was made at beginning of session in case of unexpected technology disruptions. Nearest emergency contact identified. ? DSM-5 Diagnostic Impression: Unspecified Anxiety ?? Duration: 45 min ?? Intervention: Cognitive Behavioral and Acceptance Based Interventions ?? Session Content: La completed video [place] alone [place] while provider was in [place]. There were no interruptions or disruptions in telecommunication. La reported doing very well she just returned from a bus trip and faced her fears about her bag leaking. During the trip it leaked and she was able to handle it and has developed confidence and reduced anxiety. She reported feeling stronger and able to live more fully. Notes that she was assertive and set boundaries with her family about travel as she needed days to rest and they respected it. She does endorse some anxious moments. We discussed tolerance of anxious feelings vs trying to get it to go away. Did a dropping the anchor grounding exercise in session and emailed associated materials. Positively einforced La's efforts to face her fears. ? Current Symptoms/Status: ?? Depression: denied ?? Anxiety: follow symptoms are significantly reduced: excessive worry, multiple worries,rumination, fatigue, physiological manifestations panic attack, feeling of impending doom. She notes some expereince of anxiety that she is able to come with on her own recently. ?? Mental Status Level of consciousness & Orientation: WNL Appearance: WNL Behavior/Motor: WNL Speech: WNL Mood: Sad Affect Range: Full Range of Affect Congruency: Congruent Concentration: WNL Memory: WNL Thought Process: WNL Insight: WNL Judgment: WNL ?? Risk Assessment Patient denied suicidal/homicidal ideation, plan, and intent. Sustainable as an outpatient from a psychological perspective. ?? Plan: 1. Patient will follow up in 4 weeks for continued support and intervention documented in this encounter Plan of Treatment Not on file documented as of this encounter Visit Diagnoses Not on filedocumented in this encounter Care Teams Proposal Consultant Relationship Specialty Start Date End Date Julio César Briseno MD PCP - General 10/01/16 Eren Cr MD Referring Physician Medical Oncology 11/25/18 Yohana Bowen MD Radiation Oncologist Radiation Oncology 11/25/18 Sabrina Willard NP [address] [place] [address] Nurse Practitioner Medical Oncology 08/17/20 11/26/21 documented as of this encounter
--- OUTSIDE RECORDS SUMMARY | 2024-06-25 22:29 | XMS_ITS | Encounter Summary ---
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 Gender Identity Not on file Sexual Orientation Straight 02/19/2021 9: 29 AM CDT Occupation Industry Job Start Date Job End Date retired Not on file Not on file Not on file documented as of this encounter Last Filed Vital Signs Vital Sign Reading Time Taken Comments Blood Pressure 116/62 12/06/2020 3:43 PM CDT Pulse 85 12/06/2020 3:43 PM CDT Temperature 36.3 ??C (97.3 ??F) 12/06/2020 3:43 PM CD T Respiratory Rate 20 12/06/2020 3:43 PM CDT Oxygen Saturation 97% 12/06/2020 3:43 PM CDT Inhaled Oxygen Concentration - - Weight 84.6 kg (186 lb 9.6 oz) 12/06/2020 3:43 P M CDT Height - - Body Mass Index 33.05 11/20/2020 12:44 PM CDT documented in this encounter Nursing Notes * Susana Roman RN - 12/06/2020 3:30 PM CDT Oncology Nursing Note [facility] La Chung is a 70 y.o. female who presents for treatment cycle 34, day(s) 1 of Octreotide. Pre-treatment Nursing Assessment Nursing Assessment Appetite:: Good Diarrhea:: No Constipation:: No Existing Patients: Any falls since your last visit? : Yes New Patients: Any falls since your last visit? : N/A Fatigue:: Occassional Mouth Sores:: No Nausea/Vomiting:: No Pain:: Yes (arm) Peripheral Neuropathy: : No Pt states has potential to be ? : No Shortness of Breath?: No Skin Condition/Temp: Dry, Warm Swelling:: No Additional Notes: Xgeva on hold this month per ortho due to pending future shoulder surgery. Patient to retrieve future appointments for the online patient portall. BP: 116/62 Temp: 36.3 ??C (97.3 ??F) Temp src: Temporal Pulse: 85 Resp: 20 SpO2: 97 % Weight: 84.6 kg (186 lb 9.6 oz) Treatment Patient: met treatment parameters Patient Education Treatment Education: Information/teaching given to patient including Fall Prevention and Symptom management Response: Verbalizes understanding Discharge Plan [...] 30 mg 30 mg, intramuscular, Once, On Sat12/06/20 at 1645, For 1 dose, Refrigerate. For IM intragluteal administration only- alternate gluteal sites. 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),Neuroendocrine carcinoma (HCC) Given 12/06/2020 4:05 PM CDT 30 mg Right Dorsogluteal/Butt ock documented in this encounter Orders Medications Ordered That Brett ht Not Have Been Administered Count Last Ordered Date First Ordered Date octreotide LAR (SandoSTATIN LAR) extended release intramuscular injection 30 mg 1 12/06/2020 Appointment Requests Count Last Ordered Date Fi rst Ordered Date ONCBCN INJECTION APPOINTMENT REQUEST 1 07/2020 documented in this encounter Care Teams Issuing Operator Relationship Specialty Start Date End Date Julio César Briseno MD PCP - General 10/01/16 Eren Cr MD Referring Physician Medical Oncology 11/25/18 Yohana Bowen MD Radiation Oncologist Radiation Oncology 11/25/18 Sabrina Willard NP [address] [place] [address] Nurse Practitioner Medical Oncology 08/17/20 11/26/21 documented as of this encounter
--- OUTSIDE RECORDS SUMMARY | 2024-06-25 22:29 | XMS_ITS | Encounter Summary ---
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) Procedures DC OCTREOTIDE INJECTION, DEPOT Octreotide 28 Day Cycles - Carcinoid Eren Cr MD [address] [facility] [address] [place] [address] Phone: tel: fax: [facility] [address] [address] Phone: tel: fax: Referral ID Status Reason Start Date Expiration Date V isits Requested Visits Authorized [id number] Authorized 11/28/2017 02/05/2025 1 150 Encounter Details Date Type Department Care Team (Late st Contact Info) Description 11/07/2020 4:15 PM CDT Infusion [facility] Oncology [address] 7[address] [place] [address] Neuroendocrine carcinoma (CMS/HCC) (Primary Dx); Malignant neoplasm metastatic to liver (CMS/HCC); Bone metastasis (CMS/HCC); Neuro-endocrine carcinoma (CMS/HCC) Social History Tobacco Use Types Packs/Day Years Used Date Smoking Tobacco: Never Smokeless Tobacco: Never Alcohol Use Standard Drinks/Week Comments Yes 1 (1 standard drink = 0.6 oz pur e alcohol) Comments No Sex and Gender Information Value Date Recorded Sex Assigned at Not on file Legal Sex Female 2:41 PM CLINICAL WRITER Gender Identity Not on file Sexual Orientation Straight 02/19/2021 9: 29 AM CDT Occupation Industry Job Start Date Job End Date retired Not on file Not on file Not on file documented as of this encounter Last Filed Vital Signs Vital Sign Reading Time Taken Comments Blood Pressure 144/82 11/07/2020 4:45 PM CDT Pulse 72 11/07/2020 4:45 PM CDT Temperature 36.2 ??C (97.2 ??F) 11/07/2020 4:45 PM CD T Respiratory Rate 21 11/07/2020 4:45 PM CDT Oxygen Saturation 96% 11/07/2020 4:46 PM CDT Inhaled Oxygen Concentration - - Weight 84.4 kg (186 lb 1.1 oz) 11/07/2020 4:45 P M CDT Height - - Body Mass Index 32.96 06/23/2020 2:55 PM CLINICAL WRITER documented in this encounter Nursing Notes * Minerva Jones, IRVING - 11/07/2020 4:15 PM CDT Oncology Nursing Note [facility] La Chung is a 70 y.o. female who presents for treatment of xgeva and somatostan injections Pre-treatment Nursing Assessment Nursing Assessment Appetite:: Good Diarrhea:: Yes(has colostomy) Constipation:: No Last BM Date: 11/07/20 Existing Patients: Any falls since your last visit? : No Fatigue:: Occassional Mouth Sores:: No Nausea/Vomiting:: No Pain:: No Peripheral Neuropathy: : No Pt states has potential to be ? : No Shortness of Breath?: No Respiratory Effort Characteristics: Dyspnea exertion Skin Condition/Temp: Warm, Dry, No swelling(denies rash slight redness from colostomy tape) Oral Mucosa Grade: Normal (0) Abdomen: Soft Swelling:: No Additional Notes: BP: 144/82 Temp: 36.2 ??C (97.2 ??F) Temp src: Temporal Pulse: 72 Resp: 21 SpO2: 96 % Weight: 84.4 kg (186 lb 1.1 oz) Pain Score: 0 - No pain Treatment La Chung tolerated treatment well. Additional Notes: Discharge Plan Discharge instructions [...] 120 mg 120 mg, subcutaneous, Once, On Sat11/07/20 at 1700, For 1 dose, Calcium level should be greater than 8 mg/dl Administer injection in upper arm, abdomen or upper thigh Refrigerate. Allow to stand 15 to 30 mins prior to useIndications:Bone metastasis,Neuro-endocrine carcinoma (HCC) Given 11/07/2020 4:52 PM CDT 120 mg Left Lower Abdomen octreotide LAR (SandoSTATIN LAR) extended release intramuscular injection 30 mg 30 mg, intramuscular, Once, On Sat11/07/20 at 1715, For 1 dose, Refrigerate. For IM intragluteal administration only- alternate gluteal sites. Shake.Indications:Malignan t neoplasm metastatic to liver (HCC),Neuroendocrine carcinoma (HCC) Given 11/07/2020 5:00 PM CDT 30 mg Left Dorsogluteal/Butto ck documented in this encounter Orders Nursing Count Last Ordered Date First Orde red Date ONCBCN NURSING COMMUNICATION [id number] 11/07 ONCBCN NURSING COMMUNICATION [id number] 1 0 11/07/2020 PHYSICIAN COMMUNICATION ORDER 1 11/07/2020 Appointment Requests Count Last Ordered Date Fi rst Ordered Date ONCBCN INJECTION APPOINTMENT REQUEST 1 09/2020 documented in this encounter Care Teams Director Of Vocational Guidance Relationship Specialty Start Date End Date Julio César Briseno MD PCP - General 10/01/16 Eren Cr MD Referring Physician Medical Oncology 11/25/18 Yohana Bowen MD Radiation Oncologist Radiation Oncology 11/25/18 Sabrina Willard NP [address] [place] [address] Nurse Practitioner Medical Oncology 08/17/20 11/26/21 documented as of this encounter
--- OUTSIDE RECORDS SUMMARY | 2024-06-25 22:29 | XMS_ITS | Encounter Summary ---
Author Organization [facility] Address [address] [place] [address] Phone Care Team Providers Care Examination Proctor Name Role Phone Julio César Briseno MD Primary Care Provider [phone] Eren Cr MD Unavailable [phone] Yohana Bowen MD Unavailable Sabrina Willard NP Unavailable [phone] Reason for Referral * Consultation (Routine) - Closed Specialty Diagnoses / Procedures Referred By Contellen t Referred To Contact Physical Therapy Diagnoses Closed extra-articular fracture of distal end of right radius, initial encounter Lu Garcia MD Phone: tel: [facility] [place] [address] [place] [address] Phone: tel: fax: Referral ID Status Reason Start Date Expiration Date V isits Requested Visits Authorized [id number] Closed Specialty Services Required 11/30/2020 12/30/2021 12 12 Question Answer PTRFR PT Evaluate and Treat Therapy options discussed with patient? Yes Location provided for therapy services is: Patient requested/Patient preferred Please select the performing region: External Order [[id number]] To loc/pos [facility] [place] [[id number]] Comments Please see patient twice a week for six weeks. Active and passive elbow range of motion without limits. Gentle Full supination and pronation. Continue NWB. * Diagnostic Imaging (Routine) - Closed Specialty Diagnoses / Procedures Referred By Evelyne bowman Referred To Contact Diagnoses Closed extra-articular fracture of distal end of right radius, initial encounter Procedures XR Elbow Right 3 or More Views Lu Garcia MD Phone: tel: [facility] Referral ID Status Reason Start Date Expiration Date Visits Re quested Visits Authorized [id number] Closed 11/30/2020 12/30/2021 1 1 Reason for Visit * Reason Comments Pre-op Visit Encounter Details Date Type Department Care Team (Late st Contact Info) Description 11/30/2020 1:45 PM CDT Office Visit [facility] Orthopaedic Surgery [address] [facility] 6th [place] [address] [place] [address] Lu Garcia MD [address] [place] [address] Closed extra-articular fracture of distal end of right radius, initial encounter (Primary Dx) Social History Tobacco Use Types Packs/Day Years Used Date Smoking Tobacco: Never Smokeless Tobacco: Never Alcohol Use Standard Drinks/Week Comments Yes 1 (1 standard drink = 0.6 oz pur e alcohol) Comments No Sex and Gender Information Value Date Recorded Sex Assigned at Not on file 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 The patient was sent to me for evaluation and management. I have reviewed prior external notes from this patient'smedical record and incorporated them into my medical decision making. Patient is RHD. Location: right elbow Severity: moderate to severe Duration: ongoing since time of injury Quality: Aching I have reviewed the past medical, surgical, family, and social history as documented in the chart and confirmed that there are no changes. Comorbidities that may affect fracture healing in this patient and increase complexity of treatmentinclude neuroendocrine carcinoma, history of bony metastases, vitamin D abnormalities, kidney injury. I have reviewed the medication and allergy list as documented in the chart and confirmed that thereare no changes. Objective: Well-developed, well-nourished, in no acute distress. Alert and oriented x 3. Normal respirations, no dyspnea with speaking. The injured extremity shows: Normal sensation and motor in hand; elbow range of motion limited due to pain/stiffness, unclear if there is a block. Imaging Radial head fracture in unchanged alignment from prior. I independently reviewed and interpreted this xray and the patient's prior xrays. Assessment: Ms. Chung is a 70 y.o. female who sustained a right side radial head fracture 11/20/2020. I have made the decision to trial nonoperative management at this time, however this may change in the future based on the fracture healing. I discussed the surgical treatment in the event that nonoperative measures do not work. Plan: 1) Continue NWB, range of motion full, PT. 2) Return to clinic in 1 month with repeat radiographs (AP/lateral elbow). 3) Pt no longer taking narcotic pain medication, continue tylenol as needed. 4) DVT prophylaxis discontinued. 5) Call with any questions. 6) Work status: no work documented in this encounter Plan of Treatment Scheduled Referrals Name Type Priority Associated Diagnoses Order Schedule Ambulatory referral order to Physical Therapy - Outpatient Referral Routine Closed extra-articular fracture of distal end of right radius, initial encounter Ordered: 11/30/2020 documented as of this encounter Results * [...] unchanged. Electronically signed by: Esther Reed MD Lu Garcia MD IMG XR PROCEDURES Final Resu lt documented in this encounter Visit Diagnoses Diagnosis Closed extra-articular fracture of distal end of right radius, initial encounter- Primary Closed extra-articular fracture of distal end of right radius, initial encounter documented in this encounter Care Teams Examination Proctor Relationship Specialty Start Date End Date Julio César Briseno MD PCP - General 10/01/16 Eren Cr MD Referring Physician Medical Oncology 11/25/18 Yohana Bowen MD Radiation Oncologist Radiation Oncology 11/25/18 Sabrina Willard NP [address] [place] [address] Nurse Practitioner Medical Oncology 08/17/20 11/26/21 documented as of this encounter
--- OUTSIDE RECORDS SUMMARY | 2024-06-25 22:29 | XMS_ITS | Encounter Summary ---
Author Organization [facility] Address [address] [place] [address] Phone Care Team Providers Care Spacer Type Bar And Segment Name Role Phone Julio César Briseno MD Primary Care Provider Eren Cr MD Unavailable Yohana Bowen MD Unavailable Sabrina Willard NP Unavailable Encounter Details Date Type Department Care Team (Late st Contact Info) Description 10/10/2020 Orders Only [facility] Oncology [address] [facility] Advanced Medicine 7th [place] [address] [place] [address] Sabrina Willard NP [address] [place] [address] Bone metastasis (CMS/HCC) (Primary Dx); Malignant neoplasm metastatic to liver (CMS/HCC); Neuroendocrine carcinoma (CMS/HCC) Social History Tobacco Use Types Packs/Day Years Used Date Smoking Tobacco: Never Smokeless Tobacco: Never Alcohol Use Standard Drinks/Week Comments Yes 1 (1 standard drink = 0.6 oz pur e alcohol) Comments No Sex and Gender Information Value Date Recorded Sex Assigned at Not on file 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 Gender Identity Not on file Sexual Orientation Straight 02/19/2021 9: 29 AM CDT Occupation Industry Job Start Date Job End Date retired Not on file Not on file Not on file documented as of this encounter Plan of Treatment Not on file documented as of this encounter Results * Phosphorus (11/07/2020 4:02 PM CDT) Phosphorus, pl 3.4 2.3 - 4.5 mg/dL [facility] Comment:Testing performed by : [facility], [address] [place] [id number] Blood specimen (specimen) 11/07/2020 4:02 PM CDT 11/07/2020 4:04 PM CDT Sabrina Willard NP LAB BLOOD ORDERABLES Final R esult Performing Organization Address City/State/[place] Co de Phone Number [facility] Department of Laboratories [place], [place] [id number] documented in this encounter Visit Diagnoses Diagnosis Bone metastasis- Primary Secondary malignant 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) Neuroendocrine carcinoma (HCC) Other malignant neoplasm of unspecified site documented in this encounter Orders Lab Orders Without Results Count Last Ordered D ate First Ordered Date PHOSPHORUS 1 10/10/2020 documented in this encounter Care Teams Spacer Type Bar And Segment Relationship Specialty Start Date End Date Julio César Briseno MD PCP - General 10/01/16 Eren Cr MD Referring Physician Medical Oncology 11/25/18 Yohana Bowen MD Radiation Oncologist Radiation Oncology 11/25/18 Sabrina Willard NP [address] [place] [address] Nurse Practitioner Medical Oncology 08/17/20 11/26/21 documented as of this encounter
--- OUTSIDE RECORDS SUMMARY | 2024-06-25 22:29 | XMS_ITS | Encounter Summary ---
Author Organization [facility] Address [address] [place] [address] Phone Care Team Providers Care Counter Cutter Name Role Phone Julio César Briseno MD Primary Care Provider Eren Cr MD Unavailable [phone] Yohana Bowen MD Unavailable Sabrina Willard NP Unavailable [phone] Encounter Details Date Type Department Care Team (Late st Contact Info) Description 01/02/2021 Documentation [facility] Oncology [address] [facility] Advanced Medicine 7th [place] [address] [place] [id number] Shavonne Lee LCSW Social History Tobacco Use Types Packs/Day Years Used Date Smoking Tobacco: Never Smokeless Tobacco: Never Alcohol Use Standard Drinks/Week Comments Yes 1 (1 standard drink = 0.6 oz pur e alcohol) Comments No Sex and Gender Information Value Date Recorded Sex Assigned at Not on file 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 Social work spoke with patient and family member to discuss assistance for the medication Afinitor ([employer]). An application for assistance was completed with Social Work assistance. 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 Social Work will continue to follow to assist with this issue. Contact Information: LILI Shavonne ORDOÑEZ, TANK CLEANER documented in this encounter Plan of Treatment Not on file documented as of this encounter Visit Diagnoses Not on filedocumented in this encounter Care Teams Counter Cutter Relationship Specialty Start Date End Date Julio César Briseno MD PCP - General 10/01/16 Eren Cr MD Referring Physician Medical Oncology 11/25/18 Yohana Bowen MD Radiation Oncologist Radiation Oncology 11/25/18 Sabrina Willard NP [address] [place] [address] Nurse Practitioner Medical Oncology 08/17/20 11/26/21 documented as of this encounter
--- OUTSIDE RECORDS SUMMARY | 2024-06-25 22:29 | XMS_ITS | Encounter Summary ---
Author Organization [facility] Address [address] [place] [address] Phone Care Team Providers Care Bookseamer Blindstitch Name Role Phone Julio César Briseno MD Primary Care Provider [phone] Eren Cr MD Unavailable [phone] Yohana Bowen MD Unavailable Sabrina Willard NP Unavailable [phone] 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) Procedures [place] OCTREOTIDE INJECTION, DEPOT Octreotide 28 Day Cycles - Carcinoid Eren Cr MD [address] [facility] [address] [place] [address] Phone: tel: fax: [facility] Cancer [address] [address] Phone: tel: fax: Referral ID Status Reason Start Date Expiration Date V isits Requested Visits Authorized [id number] Authorized 11/28/2017 02/05/2025 1 150 Encounter Details Date Type Department Care Team (Late st Contact Info) Description 01/02/2021 3:30 PM CDT Infusion [facility] Oncology [address] 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 female who presents for the following injection: Octreotide. Nursing Assessment Nursing Assessment Appetite:: Good Diarrhea:: No (ostomy) Constipation:: No Existing Patients: Any falls since your last visit? : No Fatigue:: Constant Mouth Sores:: No Nausea/Vomiting:: No Pain:: No Peripheral Neuropathy: : No Pt states has potential to be ? : No Shortness of Breath?: No Oral Mucosa Grade: Normal (0) Abdomen: Soft Swelling:: No Additional Notes: tolerated injection well; BP: 170/76 Temp: 36.7 ??C (98.1 ??F) Temp src: Transdermal Pulse: 85 Resp: 18 SpO2: 96 % Weight: 84.2 kg (185 lb 9.6 oz) Patient: met treatment parameters La Chung tolerated injection well Additional Notes: pt has appointment for return visit; Discharge Plan Discharge instructions given to patient. [...] 30 mg 30 mg, intramuscular, Once, On 01/02/21 at 1715, For 1 dose, Refrigerate. For IM intragluteal administration only- alternate gluteal sites. 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),Neuroendocrine carcinoma (HCC) Given 01/02/2021 4:42 PM CDT 30 mg Left Dorsogluteal/Butt ock documented in this encounter Orders Medications Ordered That Brett ht Not Have Been Administered Count Last Ordered Date First Ordered Date octreotide LAR (SandoSTATIN LAR) extended release intramuscular injection 30 mg 1 01/02/2021 Nursing Count Last Ordered Date First Orde red Date ONCBCN NURSING COMMUNICATION [id number] 1 01/02 Appointment Requests Count Last Ordered Date Fi rst Ordered Date ONCBCN INJECTION APPOINTMENT REQUEST 12/07 documented in this encounter Care Teams Bookseamer Blindstitch Relationship Specialty Start Date End Date Julio César Briseno MD PCP - General 10/01/16 Eren Cr MD Referring Physician Medical Oncology 11/25/18 Yohana Bowen MD Radiation Oncologist Radiation Oncology 11/25/18 Sabrina Willard NP [facility] [address] [place] [address] Nurse Practitioner Medical Oncology 08/17/20 11/26/21 documented as of this encounter
--- OUTSIDE RECORDS SUMMARY | 2024-06-25 22:29 | XMS_ITS | Encounter Summary ---
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) Procedures [place] OCTREOTIDE INJECTION, DEPOT Octreotide 28 Day Cycles - Carcinoid Eren Cr MD [address] [facility] [address] [place] [address] Phone: tel: fax: [facility] Cancer [address] [address] Phone: tel: fax: Referral ID Status Reason Start Date Expiration Date V isits Requested Visits Authorized [id number] Authorized 11/28/2017 02/05/2025 1 150 Encounter Details Date Type Department Care Team (Late st Contact Info) Description 01/02/2021 2:00 PM CDT Lab [facility] Oncology [address] [facility] 7th [place] [address] [place] [address] Neuroendocrine carcinoma (CMS/HCC); Malignant neoplasm metastatic to liver (CMS/HCC); Neuroendocrine tumor; Neuro-endocrine carcinoma (CMS/HCC) Social History Tobacco Use Types Packs/Day Years Used Date Smoking Tobacco: Never Smokeless Tobacco: Never Alcohol Use Standard Drinks/Week Comments Yes 1 (1 standard drink = 0.6 oz pur e alcohol) Comments No Sex and Gender Information Value Date Recorded Sex Assigned at Not on file 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 Gender Identity Not on file Sexual Orientation Straight 02/19/2021 9: 29 AM CDT Occupation Industry Job Start Date Job End Date retired Not on file Not on file Not on file documented as of this encounter Plan of Treatment Not on file documented as of this encounter Procedures Procedure Name Priority Date/Time Associated Diagnosis Comments T4, FREE Routine 10/16/2021 9:59 AM CDT TSH Routine 01/30/2021 2:10 PM CDT DIFFERENTIAL AUTO Routine 01/02/2021 2:1 7 PM CDT Neuroendocrine carcinoma (CMS/HCC) Malignant neoplasm metastatic to liver (CMS/HCC) CBC WITH AUTO DIFFERENTIAL Routine 01/02/2021 2:17 PM CDT Neuroendocrine carcinoma (CMS/HCC) Malignant neoplasm metastatic to liver (CMS/HCC) LIPID PANEL Routine 01/02/2021 2:17 PM CDT Neuroendocrine tumor COMPREHENSIVE METABOLIC PANEL STAT 01/02/2021 2:17 PM CDT Neuroendocrine carcinoma (CMS/HCC) Malignant neoplasm metastatic to liver (CMS/HCC) CHROMOGRANIN A Routine 01/02/2021 2:05 PM CDT Neuroendocrine carcinoma (CMS/HCC) Malignant neoplasm metastatic to liver (CMS/HCC) HEPATITIS PANEL, ACUTE Routine 2:05 PM CDT Neuro-endocrine carcinoma (CMS/HCC) documented in this encounter Results * (ABNORMAL) T4, free (10/16/2021 9:59 AM CDT) [facility] Free T4 0.89(L) 0.90 - 1.70 ng/dL [facility] Blood 10/16/2021 9:59 AM CDT 10/16/2021 10:40 AM CDT Eren Cr MD LAB BLOOD ORDERABLES Final Re sult Performing Organization Address [facility] Co de Phone Number [facility] Department of Laboratories [place], [place] [id number] * TSH (01/30/2021 2:10 PM CDT) [facility] Thyroid Stimulating Hormone 1.76 0.30 - 4.20 mcIUnit/mL [facility] Blood specimen (specimen) 01/30/2021 2:10 PM CDT 01/30/2021 3:27 PM CDT Eren Cr MD LAB BLOOD ORDERABLES Final Re sult Performing Organization Address [facility] Co de Phone Number [facility] Department [place] [address] * (ABNORMAL) Differential, auto (01/02/2021 2:17 PM CDT) [facility] Neutrophil abs 3.9 1.8 - 6.6 K/cumm [facility] Comment:Testing performed by : [facility], [address] [place] [phone] Lymphocyte abs 0.5(L) 1.2 - 3.3 K/cumm [facility] Comment:Testing performed by : [facility], [address] [place] [phone] Monocyte abs 0.7 0.2 - 1.2 K/cumm [facility] Comment:Testing performed by : [facility], [address] [place] [phone] Eosinophil abs 0.1 0.0 - 0.5 K/cumm [facility] Comment:Testing performed by : [facility], [address] [place] [phone] Basophil abs 0.0 0.0 - 0.2 K/cumm [facility] Comment:Testing performed by : [facility], [address] [place] [phone] Neutrophil pct 76.0 % [facility] Comment: Interpretive Data Percent cell count reference ranges are not reported, since discordance with absolute values may lead to misinterpretation of CBC data. Current Interpretive Data was last revised on 2017. Testing performed by: [facility], [address] [place] [phone] Lymphocyte pct 8.7 % [facility] Comment: Interpretive Data Percent cell count reference ranges are not reported, since discordance with absolute values may lead to misinterpretation of CBC data. Current Interpretive Data was last revised on 2017. Testing performed by: [facility], [address] [place] [phone] Monocyte pct 12.9 % [facility] Comment:Testing performed by : [facility], [address] [place] [phone] Eosinophil pct 1.8 % [facility] Comment:Testing performed by : [facility], [address] [place] [phone] Basophil pct 0.6 % [facility] Comment:Testing performed by : [facility], [address] [place] [phone] Blood specimen (specimen) 01/02/2021 2:17 PM CDT 01/02/2021 2:19 PM CDT Eren Cr MD LAB BLOOD ORDERABLES Final Re sult [facility] Department [place] [address] * (ABNORMAL) Lipid panel (01/02/2021 2:17 PM CDT) Cholesterol 133 30 - 199 mg/dL [facility] Comment: Interpretive Data Ages < [...] revised on 2018. Triglycerides 253(H) <=149 mg/dL [facility] Comment: Interpretive Data Ages < [...] revised on 2018. HDL 57 >=40 mg/dL [facility] Comment: Interpretive Data Ages < [...] on 2018. LDL, calculated 25 <=129 mg/dL [facility] Comment: Interpretive Data Ages < [...] revised on 2018. Non-HDL Cholesterol 76 mg/dL [facility] Comment: Interpretive Data Ages < [...] MD LAB BLOOD ORDERABLES Final Re sult [facility] Department [place] [address] * (ABNORMAL) CBC with auto differential (01/02/2021 2:17 PM CDT) WBC 5.2 3.8 - 9.8 K/cumm [facility] Comment:Testing performed by : [address] [address] Hgb 13.1 12.1 - 15.1 g/dL [facility] Comment:Testing performed by : [address] [address] Hct 37.5 36.1 - 44.3 % [facility] Comment:Testing performed by : [address] [phone] Plt 134(L) 140 - 440 K/cumm [facility] Comment:Testing performed by : [address] [address] MPV 7.6 6.8 - 10.4 fL [facility] Comment:Testing performed by : [address] [address] RBC 4.07 3.90 - 5.00 M/cumm [facility] Comment:Testing performed by : [address] [address] MCV 92.1 80.0 - 97.6 fL [facility] Comment:Testing performed by : [address] [address] MCH 32.1 26.7 - 33.7 pg [facility] Comment:Testing performed by : [address] [address] MCHC 34.9 32.7 - 35.5 g/dL [facility] Comment:Testing performed by : [facility], [address] [place] [phone] RDW CV 13.6 11.8 - 14.6 % [facility] Comment:Testing performed by : [facility], [address] [place] [phone] NRBC abs 0.00 0.00 - 0.01 K/cumm [facility] Comment:Testing performed by : [facility], [address] [place] [phone] Blood specimen (specimen) 01/02/2021 2:17 PM CDT 01/02/2021 2:19 PM CDT us Eren Cr MD LAB BLOOD ORDERABLES Final Re sult [facility] Department [place] [address] * (ABNORMAL) Comprehensive metabolic panel (01/02/2021 2:17 PM CDT) Sodium 141 135 - 145 mmol/L [facility] Comment:Testing performed by : [facility], [address] [place] [phone] Potassium, pl 3.8 3.3 - 4.9 mmol/L [facility] Comment:Testing performed by : [facility], [address] [place] [phone] Chloride 106 97 - 110 mmol/L [facility] Comment:Testing performed by : [facility], [address] [place] [phone] CO2 28 22 - 32 mmol/L [facility] Comment:Testing performed by : [facility], [address] [place] [phone] Anion gap 7 2 - 15 mmol/L [facility] Comment:Testing performed by : [facility], [address] [place] [phone] BUN 12 8 - 25 mg/dL [facility] Comment:Testing performed by : [facility], [address] [place] [phone] Creatinine 0.89 0.60 - 1.10 mg/dL [facility] Comment:Testing performed by : [facility], [address] [place] [phone] Glucose 109 70 - 199 mg/dL [facility] Comment: [...] was last revised 2017. Testing performed by: [place] [phone] Calcium 10.7(H) 8.5 - 10.3 mg/dL [facility] Comment:Testing performed by : [facility], [address] [place] [phone] Bilirubin, total 0.5 0.1 - 1.2 mg/dL [facility] Comment:Testing performed by : [address] [address] Protein, pl 7.1 6.5 - 8.5 g/dL [facility] Comment:Testing performed by : [address] [phone] Albumin 4.5 3.5 - 5.0 g/dL [facility] Comment:Testing performed by : [address] [address] Alk phos 91 40 - 130 Units/L [facility] Comment:Testing performed by : [address] [phone] ALT 18 7 - 45 Units/L [facility] Comment:Testing performed by : [address] [phone] AST 21 10 - 45 Units/L [facility] Comment:Testing performed by : [facility], [address] [facility] [address] Blood specimen (specimen) 01/02/2021 2:17 PM CDT 01/02/2021 2:19 PM CDT Eren Cr MD LAB BLOOD ORDERABLES Final Re sult Performing Organization Address [facility]/ZIP Co de Phone Number [facility] [place] [address] * Hepatitis panel, acute (01/02/2021 2:05 PM CDT) Hep A IgM Nonreactive Nonreactive [facility] Comment: Interpretive Data: If Hep A IgM Ab is reported as Equivocal, a new sample should be drawn in two weeks for testing. Current interpretive data was last revised on 19. Hep B core IgM Nonreactive Nonreactive [facility] Comment: Interpretive Data If HepB Core IgM Ab is reported as Equivocal, a new sample should be drawn in two weeks for testing. Current interpretive data was last revised on 19. Hep C Ab Nonreactive Nonreactive [facility] Comment:Antibodies to HCV no t detected. Does NOT exclude the possibility of recent exposure to HCV. HepBsAg Nonreactive Nonreactive [facility] Blood specimen (specimen) 01/02/2021 2:05 PM CDT 01/02/2021 2:37 PM CDT Eren Cr MD LAB MICROBIOLOGY - GENERAL OR DERABLES Edited Result - Final Performing Organization Address [facility]/ZIP Co de Phone Number [facility] [place] [address] * (ABNORMAL) Chromogranin A (01/02/2021 2:05 PM CDT) Chromogranin A 779(H) <93 ng/mL [facility] Comment: Impaired renal or hepatic function [...] a homogeneous time-resolved immunofluorescent assay manufactured by [employer] and performed on the [employer] Kryptor Compact Plus. ? Values obtained with different assay methods or kits may be different and cannot be used interchangeably. ? Test results cannot be interpreted as absolute evidence for the presence or absence of malignant disease. Test Performed by: [facility] [address] [place] [address] Despatching And Receiving Clerk: Immanuel Novak M.D. Ph.D.; CLIA# [id number] Blood specimen (specimen) 01/02/2021 2:05 PM CDT 01/02/2021 4:06 PM CDT us Eren Cr MD LAB BLOOD ORDERABLES Final Re sult 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 Neuro-endocrine carcinoma (HCC) Other malignant neoplasm of unspecified site documented in this encounter Orders Appointment Requests Count Last Ordered Date Fi rst Ordered Date ONCBCN LAB APPOINTMENT 1 01/02/2021 documented in this encounter Care Teams Piano Machine Operator Relationship Specialty Start Date End Date Julio César Briseno MD PCP - General 10/01/16 Eren Cr MD Referring Physician Medical Oncology 11/25/18 Yohana Bowen MD Radiation Oncologist Radiation Oncology 11/25/18 Sabrina Willard NP [address] [place] [address] Nurse Practitioner Medical Oncology 08/17/20 11/26/21 documented as of this encounter
--- OUTSIDE RECORDS SUMMARY | 2024-06-25 22:29 | XMS_ITS | Encounter Summary ---
Author Organization [facility] Address [address] [place] [address] Phone Care Team Providers Care Bag Cutter Name Role Phone Julio César Briseno MD Primary Care Provider Eren Cr MD Unavailable Yohana Bowen MD Unavailable Sabrina Willard NP Unavailable Encounter Details Date Type Department Care Team (Late st Contact Info) Description 10/11/2020 Orders Only 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 Gender Identity Not on file Sexual Orientation Straight 02/19/2021 9: 29 AM CDT Occupation Industry Job Start Date Job End Date retired Not on file Not on file Not on file documented as of this encounter Plan of Treatment Not on file documented as of this encounter Visit Diagnoses Not on filedocumented in this encounter Care Teams Bag Cutter Relationship Specialty Start Date End Date Julio César Briseno MD PCP - General 10/01/16 Eren Cr MD Referring Physician Medical Oncology 11/25/18 Yohana Bowen MD Radiation Oncologist Radiation Oncology 11/25/18 Sabrina Willard NP [address] [place] [address] Nurse Practitioner Medical Oncology 08/17/20 11/26/21 documented as of this encounter
--- OUTSIDE RECORDS SUMMARY | 2024-06-25 22:30 | XMS_ITS | Encounter Summary ---
Author Organization [facility] Healthcare Address [address] [place] [address] Care Team Providers Care Phytochemistry Professor Name Role Phone Julio César Briseno MD Primary Care Provider [phone] Eren Cr MD Unavailable [phone] Yohana Bowen MD Unavailable Sabrina Willard NP Unavailable [phone] Reason for Visit * Reason Comments Psychotherapy Encounter Details Date Type Department Care Team (Late st Contact Info) Description 09/19/2020 9:00 AM CDT Clinical Support [address] 1st [place] [id number] Neeru Nails, PhD [address] [place] [id number] Social History Tobacco Use Types Packs/Day Years Used Date Smoking Tobacco: Never Smokeless Tobacco: Never Alcohol Use Standard Drinks/Week Comments Yes 1 (1 standard drink = 0.6 oz pur e alcohol) Comments No Sex and Gender Information Value Date Recorded Sex Assigned at Not on file 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 Nearest emergency contact identified. DSM-5 Diagnostic Impression: Generalized Anxiety Disorder Duration: 45 min Intervention: Cognitive Behavioral and Acceptance Based Interventions Session Content: Patient completed video session alone at her [place] in [place] while provider was in [place]. There were no interruptions or disruptions in telecommunication. Patient provided a space to discussand express emotions related to argument with her that occurred during him helping her with medical care. Utilized Cognitive Behavioral and assertive communication strategies to assist in improving her ability to navigating and process her emotions and decrease barriers to communicating herfeelings and needs to her . Further, since changing the way she manages her pain from [employer] advice she has been mostly pain free for 3 weeks which has improved quality of life. Current Symptoms/Status: Depression: sad, tearfulness Anxiety: Excessive worry, multiple worries,rumination, fatigue, physiological manifestations panic attack, feeling of impending doom Mental Status Level of consciousness & Orientation: WNL Appearance: WNL Behavior/Motor: WNL Speech: WNL Mood: Sad Affect Range: Full Range of Affect Congruency: Congruent Concentration: WNL Memory: WNL Thought Process: WNL Insight: WNL Judgment: WNL Risk Assessment Patient denied suicidal/homicidal ideation, plan, and intent. Sustainable as an outpatient from a psychological perspective. Plan: 1. Patient will follow up in 4 weeks for continued support and intervention documented in this encounter Plan of Treatment Not on file documented as of this encounter Visit Diagnoses Not on filedocumented in this encounter Care Teams Phytochemistry Professor Relationship Specialty Start Date End Date Julio César Briseno MD PCP - General 10/01/16 Eren Cr MD Referring Physician Medical Oncology 11/25/18 Yohana Bowen MD Radiation Oncologist Radiation Oncology 11/25/18 Sabrina Willard NP [address] [place] [address] Nurse Practitioner Medical Oncology 08/17/20 11/26/21 documented as of this encounter
--- OUTSIDE RECORDS SUMMARY | 2024-06-25 22:30 | XMS_ITS | Encounter Summary ---
Author Organization [facility] Address [address] [place] [address] Phone Care Team Providers Care Dairy Clerk Name Role Phone Julio César Briseno MD Primary Care Provider Eren Cr MD Unavailable [phone] Yohana Bowen MD Unavailable Encounter Details Date Type Department Care Team (Late st Contact Info) Description 08/11/2020 Orders Only [facility] Oncology [address] [facility] Advanced Medicine 7th [place] [address] [place] [address] Eren Cr MD [address] [facility] [address] [place] [address] Bone metastasis (CMS/HCC) (Primary Dx); Neuroendocrine carcinoma (CMS/HCC) Social History Tobacco Use Types Packs/Day Years Used Date Smoking Tobacco: Never Smokeless Tobacco: Never Alcohol Use Standard Drinks/Week Comments Yes 1 (1 standard drink = 0.6 oz pur e alcohol) Comments No Sex and Gender Information Value Date Recorded Sex Assigned at Not on file Legal Sex Female 2:41 PM RN PICU Gender Identity Not on file Sexual Orientation Straight 02/19/2021 9: 29 AM CDT Occupation Industry Job Start Date Job End Date retired Not on file Not on file Not on file documented as of this encounter Plan of Treatment Not on file documented as of this encounter Results * Phosphorus (08/15/2020 2:23 PM RN PICU) Phosphorus, pl 2.5 2.3 - 4.5 mg/dL JASON BLACK Comment:Testing performed by : [facility], [address] [place] [phone] Blood specimen (specimen) 08/15/2020 2:23 PM RN PICU 08/15/2020 2:28 PM RN PICU us Eren Cr MD LAB BLOOD ORDERABLES Final Re sult [facility] One [facility] Department [place] [address] documented in this encounter Visit Diagnoses Diagnosis Bone metastasis- Primary Secondary malignant neoplasm of bone and bone marrow Neuroendocrine carcinoma (HCC) Other malignant neoplasm of unspecified site documented in this encounter Care Teams Dairy Clerk Relationship Specialty Start Date End Date Julio César Briseno MD PCP - General 10/01/16 Eren Cr MD Referring Physician Medical Oncology 11/25/18 Yohnaa Bowen MD Radiation Oncologist Radiation Oncology 11/25/18 documented as of this encounter
--- OUTSIDE RECORDS SUMMARY | 2024-06-25 22:30 | XMS_ITS | Encounter Summary ---
Author Organization [facility] Address [address] [place] [address] Phone Care Team Providers Care Clicker Operator Name Role Phone Julio César Briseno MD Primary Care Provider Eren Cr MD Unavailable [phone] Yohana Bowen MD Unavailable Encounter Details Date Type Department Care Team (Late st Contact Info) Description 07/04/2020 Orders Only [facility] Oncology [address] 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
--- OUTSIDE RECORDS SUMMARY | 2024-06-25 22:30 | XMS_ITS | Encounter Summary ---
Author Organization [facility] Address [address] [place] [address] Phone Care Team Providers Care Pai Gow Manager Name Role Phone Julio César Briseno MD Primary Care Provider Eren Cr MD Unavailable [phone] Yohana Bowen MD Unavailable Encounter Details Date Type Department Care Team (Late st Contact Info) Description 08/16/2020 Orders Only [facility] Oncology [address] [facility] Advanced [facility] 7th [place] [address] [place] [address] Eren Cr MD [address] [facility] [address] [place] [address] Social History Tobacco Use Types Packs/Day Years Used Date Smoking Tobacco: Never Smokeless Tobacco: Never Alcohol Use Standard Drinks/Week Comments Yes 1 (1 standard drink = 0.6 oz pur e alcohol) Comments No Sex and Gender Information Value Date Recorded Sex Assigned at Not on file 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
--- OUTSIDE RECORDS SUMMARY | 2024-06-25 22:30 | XMS_ITS | Encounter Summary ---
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) Procedures [place] OCTREOTIDE INJECTION, DEPOT Octreotide 28 Day Cycles - Carcinoid Eren Cr MD [address] [facility] [address] [place] [address] Phone: tel: fax: [facility] [address] [address] Phone: tel: fax: Referral ID Status Reason Start Date Expiration Date V isits Requested Visits Authorized [id number] Authorized 11/28/2017 02/05/2025 1 150 Encounter Details Date Type Department Care Team (Late st Contact Info) Description 09/12/2020 3:45 PM SHEET METAL CONTRACTOR Lab [facility] Oncology [address] [place] [address] 7th [place] [address] [place] [address] Neuroendocrine carcinoma (CMS/HCC); Malignant neoplasm metastatic to liver (CMS/HCC) Social History Tobacco Use Types Packs/Day Years Used Date Smoking Tobacco: Never Smokeless Tobacco: Never Alcohol Use Standard Drinks/Week Comments Yes 1 (1 standard drink = 0.6 oz pur e alcohol) Comments No Sex and Gender Information Value Date Recorded Sex Assigned at Not on file Legal Sex Female 2:41 PM SHEET METAL CONTRACTOR Gender Identity Not on file Sexual Orientation Straight 02/19/2021 9: 29 AM CDT Occupation Industry Job Start Date Job End Date retired Not on file Not on file Not on file documented as of this encounter Plan of Treatment Not on file documented as of this encounter Procedures Procedure Name Priority Date/Time Associated Diagnosis Comments DIFFERENTIAL AUTO Routine 09/12/2020 4:0 6 PM SHEET METAL CONTRACTOR Neuroendocrine carcinoma (CMS/HCC) Malignant neoplasm metastatic to liver (CMS/HCC) CHROMOGRANIN A Routine 09/12/2020 4:06 PM SHEET METAL CONTRACTOR Neuroendocrine carcinoma (CMS/HCC) Malignant neoplasm metastatic to liver (CMS/HCC) CBC WITH AUTO DIFFERENTIAL Routine 09/12/2020 4:06 PM SHEET METAL CONTRACTOR Neuroendocrine carcinoma (CMS/HCC) Malignant neoplasm metastatic to liver (CMS/HCC) COMPREHENSIVE METABOLIC PANEL STAT 09/12/2020 4:06 PM SHEET METAL CONTRACTOR Neuroendocrine carcinoma (CMS/HCC) Malignant neoplasm metastatic to liver (CMS/HCC) documented in this encounter Results * (ABNORMAL) Differential, auto (09/12/2020 4:06 PM SHEET METAL CONTRACTOR) Neutrophil abs 3.6 1.8 - 6.6 K/cumm JASON BLACK Comment:Testing performed by : [facility], [address] [place] [phone] Lymphocyte abs 0.5(L) 1.2 - 3.3 K/cumm JASON BLACK Comment:Testing performed by : [facility], [address] [place] [phone] Monocyte abs 0.6 0.2 - 1.2 K/cumm CERNER BJ Comment:Testing performed by : [facility], [address] [place] [phone] Eosinophil abs 0.1 0.0 - 0.5 K/cumm CERNER BJ Comment:Testing performed by : [facility], [address] [place] [phone] Basophil abs 0.0 0.0 - 0.2 K/cumm CERNER BJ Comment:Testing performed by : [facility], [address] [place] [phone] Neutrophil pct 75.0 % CERNER BJ Comment: Interpretive Data Percent cell count reference ranges are not reported, since discordance with absolute values may lead to misinterpretation of CBC data. Current Interpretive Data was last revised on 2017. Testing performed by: [facility], [address] [place] [phone] Lymphocyte pct 9.5 % CERNER BJ Comment: Interpretive Data Percent cell count reference ranges are not reported, since discordance with absolute values may lead to misinterpretation of CBC data. Current Interpretive Data was last revised on 2017. Testing performed by: [facility], [address] [place] [phone] Monocyte pct 12.7 % CERNER BJ Comment:Testing performed by : [facility], [address] [place] [phone] Eosinophil pct 2.2 % CERNER BJ Comment:Testing performed by : [facility], [address] [place] [phone] Basophil pct 0.6 % CERNER BJ Comment:Testing performed by : [facility], [address] [place] [phone] Blood specimen (specimen) 09/12/2020 4:06 PM SHEET METAL CONTRACTOR 09/12/2020 4:09 PM SHEET METAL CONTRACTOR us Eren Cr MD LAB BLOOD ORDERABLES Final Re sult JASON BLACK One [facility] [place] [address] * (ABNORMAL) Comprehensive metabolic panel (09/12/2020 4:06 PM SHEET METAL CONTRACTOR) Sodium 141 135 - 145 mmol/L [facility]ER [facility] Comment:Testing performed by : [facility], [address] [place] [phone] Potassium, pl 4.2 3.3 - 4.9 mmol/L CERNER BJ Comment:Testing performed by : [facility], [address] [place] [phone] Chloride 104 97 - 110 mmol/L CERNER BJ Comment:Testing performed by : [facility], [address] [place] [phone] CO2 32 22 - 32 mmol/L CERNER BJ Comment:Testing performed by : [facility], [address] [place] [phone] Anion gap 5 2 - 15 mmol/L CERNER BJ Comment:Testing performed by : [facility], [address] [place] [phone] BUN 15 8 - 25 mg/dL CERNER BJ Comment:Testing performed by : [facility], [address] [place] [phone] Creatinine 0.88 0.60 - 1.10 mg/dL CERNER BJ Comment:Testing performed by : [facility], [address] [place] [phone] Glucose 98 70 - 199 mg/dL CERNER [facility] Comment: Interpretive Data Fasting glucose >/= [...] last revised 2017. Testing performed by: [facility], [address] [place] [phone] Calcium 10.8(H) 8.5 - 10.3 mg/dL CERMINNIE [facility] Comment:Testing performed by : [facility], [address] [place] [phone] Bilirubin, total 0.3 0.1 - 1.2 mg/dL CERMINNIE [facility] Comment:Testing performed by : [facility], [address] [place] [phone] Protein, pl 6.8 6.5 - 8.5 g/dL CERMINNIE [facility] Comment:Testing performed by : [facility], [address] [place] [phone] Albumin 4.3 3.5 - 5.0 g/dL CERIMNNIE [facility] Comment:Testing performed by : [facility], [address] [place] [phone] Alk phos 82 40 - 130 Units/L JASON [facility] Comment:Testing performed by : [facility], [address] [place] [phone] ALT 16 7 - 45 Units/L JASON [facility] Comment:Testing performed by : [facility], [address] [place] [phone] AST 20 10 - 45 Units/L JASON [facility] Comment:Testing performed by : [facility], [address] [place] [phone] Blood specimen (specimen) 09/12/2020 4:06 PM SHEET METAL CONTRACTOR 09/12/2020 4:09 PM SHEET METAL CONTRACTOR us Eren Cr MD LAB BLOOD ORDERABLES Final Re sult [facility] One [facility] Department [place] [address] * (ABNORMAL) CBC with auto differential (09/12/2020 4:06 PM SHEET METAL CONTRACTOR) WBC 4.8 3.8 - 9.8 K/cumm JASON [facility] Comment:Testing performed by : [facility], [address] [place] [phone] Hgb 12.7 12.1 - 15.1 g/dL JASON [facility] Comment:Testing performed by : [facility], [address] [place], [place] [phone] Hct 37.8 36.1 - 44.3 % CERMINNIE BJ Comment:Testing performed by : [facility], [address] [place], [place] [phone] Plt 117(L) 140 - 440 K/cumm CERMINNIE BJ Comment:Testing performed by : [place] [phone] MPV 7.3 6.8 - 10.4 fL CERMINNIE BJ Comment:Testing performed by : [place] [address] RBC 4.06 3.90 - 5.00 M/cumm CERMINNIE BJ Comment:Testing performed by : [place] [address] MCV 93.2 80.0 - 97.6 fL CERMINNIE [facility] Comment:Testing performed by : [place] [phone] MCH 31.3 26.7 - 33.7 pg CERMINNIE [facility] Comment:Testing performed by : [facility], [address] [place], [place] [phone] MCHC 33.6 32.7 - 35.5 g/dL CERMINNIE BJ Comment:Testing performed by : [place] [phone] RDW CV 13.3 11.8 - 14.6 % CERMINNIE BJ Comment:Testing performed by : [place] [phone] NRBC abs 0.00 0.00 - 0.01 K/cumm CERMINNIE BJ Comment:Testing performed by : [place] [phone] Blood specimen (specimen) 09/12/2020 4:06 PM SHEET METAL CONTRACTOR 09/12/2020 4:09 PM SHEET METAL CONTRACTOR us Eren Cr MD LAB BLOOD ORDERABLES Final Re sult JASON BLACK [facility] [place] [address] * (ABNORMAL) Chromogranin A (09/12/2020 4:06 PM SHEET METAL CONTRACTOR) Chromogranin A 407(H) <93 ng/mL JASON SOFIA Comment: Impaired renal or hepatic function or treatment with proton pump inhibitors may result in artifactual elevations of Chromogranin A. ADDITIONAL INFORMATION This test was developed and its performance characteristics determined by [facility] in a manner consistent with CLIA requirements. This test has not been cleared or approved by the U.S. Food and Drug Administration. The testing method is a homogeneous time-resolved immunofluorescent assay manufactured by [employer] and performed on the [employer]les[employer] Compact Plus. ? Values obtained with different assay methods or kits may be different and cannot be used interchangeably. ? Test results cannot be interpreted as absolute evidence for the presence or absence of malignant disease. Test Performed by: [facility] [address] [place] [address] Welding Supervisor: Immanuel Novak M.D. Ph.D.; CLIA# [id number] Blood specimen (specimen) 09/12/2020 4:06 PM SHEET METAL CONTRACTOR 09/12/2020 5:02 PM SHEET METAL CONTRACTOR Eren Cr MD LAB BLOOD ORDERABLES Final Re sult JASON LEAVITT [facility] [place] [address] documented in this encounter Visit Diagnoses Diagnosis Neuroendocrine carcinoma (HCC) Other malignant neoplasm of unspecified site Malignant neoplasm metastatic to liver (HCC) documented in this encounter Orders Appointment Requests Count Last Ordered Date Fi rst Ordered Date ONCBCN LAB APPOINTMENT 1 09/12/2020 documented in this encounter Care Teams Tap Grinder Relationship Specialty Start Date End Date Julio César Briseno MD PCP - General 10/01/16 Eren Cr MD Referring Physician Medical Oncology 11/25/18 Yohana Bowen MD Radiation Oncologist Radiation Oncology 11/25/18 Sabrina Willard NP [address] [place] [address] Nurse Practitioner Medical Oncology 08/17/20 11/26/21 documented as of this encounter
--- OUTSIDE RECORDS SUMMARY | 2024-06-25 22:30 | XMS_ITS | Encounter Summary ---
Author Organization [facility] Address [address] [place] [address] Phone Care Team Providers Care Auto Accessories Installer Name Role Phone Julio César Briseno MD Primary Care Provider [phone] Eren Cr MD Unavailable [phone] Yohana Bowen MD Unavailable Sabrina Willard NP Unavailable [phone] 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) Procedures RI OCTREOTIDE INJECTION, DEPOT Octreotide 28 Day Cycles - Carcinoid Eren Cr MD [address] [facility] [address] [place] [address] Phone: tel: fax: [facility] [address] [address] Phone: tel: fax: Referral ID Status Reason Start Date Expiration Date V isits Requested Visits Authorized [id number] Authorized 11/28/2017 02/05/2025 1 150 Encounter Details Date Type Department Care Team (Late st Contact Info) Description 10/10/2020 4:15 PM CDT Infusion [facility] Oncology [address] [facility] 7th [place] [id number] Neuroendocrine carcinoma (CMS/HCC) (Primary Dx); Malignant neoplasm [...] on file Legal Sex Female 2:41 PM [employer] Gender Identity Not on file Sexual Orientation Straight 02/19/2021 9: 29 AM CDT Occupation Industry Job Start Date Job End Date retired Not on file Not on file Not on file documented as of this encounter Last Filed Vital Signs Vital Sign Reading Time Taken Comments Blood Pressure 129/65 10/10/2020 4:50 PM CDT Pulse 77 10/10/2020 4:50 PM CDT Temperature 36.6 ??C (97.8 ??F) 10/10/2020 4:50 PM CD T Respiratory Rate 20 10/10/2020 4:50 PM CDT Oxygen Saturation 82% 10/10/2020 4:50 PM CDT Inhaled Oxygen Concentration - - Weight 84 kg (185 lb 3 oz) 10/10/2020 4:50 PM CD T Height - - Body Mass Index 32.8 06/23/2020 2:55 PM [employer] documented in this encounter Nursing Notes * Jo Wolff RN - 10/10/2020 4:15 PM CDT Xgeva given into right lower abd, tolerated well. Octreotide given into right dorsogluteal area, tolerated well. Return appts confirmed. Discharged ambulatory in stable condition. documented in this [...] 120 mg 120 mg, subcutaneous, Once, On Sat10/10/20 at 1800, For 1 dose, Calcium level should be greater than 8 mg/dl Administer injection in upper arm, abdomen or upper thigh Refrigerate. Allow to stand 15 to 30 mins prior to useIndications:Bone metastasis,Neuro-endocrine carcinoma (HCC) Given 10/10/2020 5:24 PM CDT 120 mg Right Lower Abdomen octreotide LAR (SandoSTATIN LAR) extended release intramuscular injection 30 mg 30 mg, intramuscular, Once, On Sat10/10/20 at 1730, For 1 dose, Refrigerate. For IM intragluteal administration only- alternate gluteal sites. Shake.Indications:Malignan t neoplasm metastatic to liver (HCC),Neuroendocrine carcinoma (HCC) Given 10/10/2020 5:24 PM CDT 30 mg Right Dorsogluteal/Butto ck documented in this encounter Orders Nursing Count Last Ordered Date First Orde red Date ONCBCN NURSING COMMUNICATION [id number] 1 10/10 ONCBCN NURSING COMMUNICATION [id number] 1 0 10/10/2020 ONCBCN OK TO TREAT 1 10/10/2020 PHYSICIAN COMMUNICATION ORDER 1 10/10/2020 Appointment Requests Count Last Ordered Date Fi rst Ordered Date ONCBCN INJECTION APPOINTMENT REQUEST 1 11/2020 documented in this encounter Care Teams Auto Accessories Installer Relationship Specialty Start Date End Date Julio César Briseno MD PCP - General 10/01/16 Eren Cr MD Referring Physician Medical Oncology 11/25/18 Yohana Bowen MD Radiation Oncologist Radiation Oncology 11/25/18 Sabrina Willard NP [address] [facility] [address] [place] [address] Nurse Practitioner Medical Oncology 08/17/20 11/26/21 documented as of this encounter
--- OUTSIDE RECORDS SUMMARY | 2024-06-25 22:30 | XMS_ITS | Encounter Summary ---
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) Procedures CT soft tissue neck with contrast Eren Cr MD [address] [place] [address] Phone: tel: fax: [address] [phone] Referral ID Status Reason Start Date Expiration Date Visits Re quested Visits Authorized [id number] Closed 08/15/2020 09/14/2021 1 1 TESTER * MRI/CAT/PET Scan (Routine) - Closed Specialty Diagnoses / Procedures Referred By Contac Referred To Contact Radiology Diagnoses 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) Procedures CT chest abdomen pelvis with contrast Eren Cr MD [address] [facility] [address] [address] Phone: tel: fax: [address] [phone] Referral ID Status Reason Start Date Expiration Date Visits Re quested Visits Authorized [id number] Closed 08/15/2020 09/14/2021 1 1 TESTER * MRI/CAT/PET Scan (Routine) - Closed Specialty Diagnoses / Procedures Referred By Contac t Referred To Contact Radiology Diagnoses 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) Procedures CT head with contrast Eren Cr MD [address] [facility] [address] [address] Phone: tel: fax: [address] [phone] Referral ID Status Reason Start Date Expiration Date Visits Re quested Visits Authorized [id number] Closed 08/15/2020 09/14/2021 1 1 TESTER 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) Procedures [place] OCTREOTIDE INJECTION, DEPOT Octreotide 28 Day Cycles - Carcinoid Eren Cr MD [address] [facility] [address] [address] Phone: tel: fax: [address] [address] Phone: tel: fax: Referral ID Status Reason Start Date Expiration Date V isits Requested Visits Authorized [id number] Authorized 11/28/2017 02/05/2025 1 150 Encounter Details Date Type Department Care Team (Late st Contact Info) Description 08/15/2020 2:30 PM PAIL TESTER Office Visit [facility] Oncology [address] [facility] 7th [place] [address] [place] [address] Eren Cr MD [address] [facility] [address] [place] [address] Bone metastasis (CMS/HCC) (Primary Dx); Neuroendocrine carcinoma (CMS/HCC); Malignant neoplasm metastatic to liver (CMS/HCC) Social History Tobacco Use Types Packs/Day Years Used Date Smoking Tobacco: Never Smokeless Tobacco: Never Alcohol Use Standard Drinks/Week Comments Yes 1 (1 standard drink = 0.6 oz pur e alcohol) Comments No Sex and Gender Information Value Date Recorded Sex Assigned at Not on file Legal Sex Female 2:41 PM PAIL TESTER Gender Identity Not on file Sexual Orientation Straight 02/19/2021 9: 29 AM CDT Occupation Industry Job Start Date Job End Date retired Not on file Not on file Not on file documented as of this encounter Last Filed Vital Signs Vital Sign Reading Time Taken Comments Blood Pressure 141/65 08/15/2020 2:45 PM PAIL TESTER Pulse 72 08/15/2020 2:45 PM PAIL TESTER Temperature 36.3 ??C (97.3 ??F) 08/15/2020 2:45 PM CS T Respiratory Rate 18 08/15/2020 2:45 PM PAIL TESTER Oxygen Saturation 96% 08/15/2020 2:45 PM PAIL TESTER Inhaled Oxygen Concentration - - Weight 84.8 kg (187 lb) 08/15/2020 2:45 PM PAIL TESTER Height - - Body Mass Index 33.13 06/23/2020 2:55 PM PAIL TESTER documented in this encounter Progress Notes * Sabrina Willard NP - 08/15/2020 2:30 PM CST MEDICAL ONCOLOGY OUTPATIENT ROV NOTE La Chung : 1950 DATE OF VISIT: 08/15/20 Oncology History Overview Note TREATMENT HISTORY: 1. [...] time, she also underwent right colectomy in [facility] OR by Dr. Greyson Reeves. [...] colostomy in April 2019. She is s/p #4 PRRT/Lutathera on 08/05/2019. Since last visit patient underwent fulguration of ostomy site on 05/30/2020. CT scan 08/01/2020 reveals No significant change in multiple serosal hepatic metastases and omental metastatic disease . CT of the neck reveals Unchanged sclerotic lesion within the inferior right C7 articular facet likely representing metastasis given dotatate uptake and unchanged prominent right supraclavicular LN. She is on monthly octreotide LAR and monthly Xgeva injections. She fell the other week after slipping on a magazine and landed on her side. This past weekend, shewas in the shower at her sister's house and slipped and fell out of the shower. She hit her head hard and had VILLATORO on the right side and even the left. Her head hurts today even. She had landed on her right shoulder and has a bruise there and on her upper right back/scapula. She has had dizziness for 1 year to 9 months. She has talked to her PCP about this. Her BP medication is 1/2 dose. Not checking her BP at home. Was told she has a few medications that could make her dizzy. Changed her cholesterol medication to night time dosing schedule, and this dizziness has since resolved. She empties her ostomy about 7 times a day. It is liquid. For about 10 days after octreotide it will thicken up. Has flushing about 1-2 times a month. Takes cholestyramine. Tried octreotide short acting injections the last week since she is overdue for the octreotide due to COVID exposure, and thisdid not help her symptoms. Her has stomach cancer. Her daughter had melanoma 7 years ago. She takes cymbalta, but is tearful at times. She is not motivated to eat often, and states she does because of her . Comments that if she were alone at home, she would probably only eat a bowl of cereal a day and be fine.She has a lot of worry at baseline given her history, and her family member's history. Her stoma still causes her nerve pain. It is burning/stinging. It is constant and has been since stoma placement. She takes gabapentin 600 mg BID. She took a double dose this AM and feels thick with this. Her #1 COVID vaccine is 08/25/2020. ALLERGIES: Allergies Allergen Reactions ??? Ezetimibe-Simvastatin Muscle pain and Unknown Muscle weakness ??? Ramipril Cough ROS: A complete review of systems was performed and was negative other than those mentioned in the aboveinterval history. All other systems negative. OBJECTIVE: Most Recent Vitals: BP: 141/65 Temp: 36.3 ??C (97.3 ??F) Temp src: Transdermal Pulse: 72 Resp: 18 SpO2: 96 % Weight: 84.8 kg (187 lb) PHYSICAL EXAM: ECOG PS: 1 General: well developed, well nourished female that is age appropriate in no acute distress sittingin a chair. She is tearful at times. Head: Extraocular movements are intact, oropharynx clear. No mucositis, thrush, ulcers. Neck: Supple, no lymphadenopathy or thyromegaly. Chest: Clear to auscultation bilaterally. No wheezes or rales. Unlabored breathing. Heart: S1S2, RRR, no murmurs, rubs or gallops Abdomen: Soft, non tender, non distended, bowel sounds present. Well healed abdominal surgical scars. Ostomy in LLQ with opaque bag in place. Slightly tender on left side of stoma bag to light touch. Extremities: No cyanosis, clubbing or edema. Skin: No rash or open wounds. Ecchymosis that is old/light yellow purple in color right scapula about 4 cm in size. Right shoulder ecchymosis light yellow. Neurological: No focal deficit. A&O x 4. Tender on right parietal/midline portion of scalp withslight bulge of about 1 cm; no laceration or bruise. LABS: All laboratories personally reviewed and discussed with patient during office visit, selected values included below. Lab Results Component Value Date WBC 4.7 08/15/2020 HGB 12.9 08/15/2020 HCT 37.7 08/15/2020 MCV 91.8 08/15/2020 LABPLAT 126 (L) 08/15/2020 NEUTROABS 3.6 08/15/2020 CMP: Lab Results Component Value Date/Time SODIUM 138 08/15/2020 02:23 PM POTASSIUM 4.5 08/15/2020 02:23 PM CO2 30 08/15/2020 02:23 PM BUNSER 15 08/15/2020 02:23 PM GLUCOSE 108 08/15/2020 02:23 PM CREATININE 0.97 08/15/2020 02:23 PM CALCIUM 10.2 08/15/2020 02:23 PM CHLORIDE 104 08/15/2020 02:23 PM ALBUMIN 4.0 08/15/2020 02:23 PM AST 21 08/15/2020 02:23 PM ALT 18 08/15/2020 02:23 PM ALKPHOS 83 08/15/2020 02:23 PM BILITOT 0.4 08/15/2020 02:23 PM PROT 6.6 08/15/2020 02:23 PM ANIONGAP 4 08/15/2020 02:23 PM Lab Results Component Value Date PHOS 2.5 08/15/2020 Tumor Marker History Some values may be hidden. Unless noted otherwise, only the newest values recorded on each date aredisplayed. Tumor Markers Latest Ref Range 04/11/20 05/09/20 06/06/20 07/04/20 Chromogranin A <93 ng/mL 250 (A) 344 (A) 313 (A) 340 (A) (A) Abnormal value Comments are available for some flowsheets but are not being displayed. IMAGING: CT soft tissue neck with contrast Narrative: EXAMINATION: CT of the neck with contrast HISTORY: Metastatic neuroendocrine tumor. TECHNIQUE: CT of the neck was performed according to standard protocol after the uneventful administration of intravenous contrast. Contrast information: 50 mL Optiray-350 COMPARISON: 05/03/2020. FINDINGS: Review of the topogram demonstrates no abnormality. There is an unchanged prominent right supraclavicular lymph node on series 4, image 86 measuring 8 x 11 mm. Other scattered subcentimeter lymph nodes are seen in the neck. None are pathologically enlarged or abnormally enhancing. The muscles of the neck are normal. Vessels of the neck demonstrate normal course and caliber. Fascial planes are preserved and the deep spaces of the neck are normal. The visualized airway is widely patent. A subcentimeter left thyroid nodule is noted. The base of the skull and the temporal bones are normal. Limited views of the brain including the cerebellum and brainstem are normal. The limited view of the [place] is unremarkable. The visualized portions of the orbits are normal. The spinal canal is normal in caliber. There is multilevel degenerative disc disease. There is no significant interval change in the sclerotic lesion within the right C7 inferior articular facet and T1 pedicle. Impression: 1. Unchanged sclerotic lesion within the inferior right C7 articular facet likely representing metastasis given dotatate uptake. 2. Unchanged prominent right supraclavicular lymph node. Dictated by: Michael Black M.D. The radiology attending physician has personally reviewed this study, and had reviewed and/or edited this written report and agrees with it. Electronically signed by: Elaine Sandoval M.D. CT Chest Abdomen W Contrast Narrative: CT of the chest and abdomen with intravenous contrast HISTORY: Neuroendocrine carcinoma assess treatment response A CT of the chest, abdomen and pelvis was performed following the uneventful intravenous administration of 100 mL of Optiray 350 COMPARISON: CT dated 05/03/2020 FINDINGS: CHEST: Note is made of a left aortic arch. Right subclavian artery, this is unchanged in appearance from the prior study. No supraclavicular, mediastinal or axillary adenopathy is seen. No pleural effusion or pneumothorax is noted. No suspicious pulmonary nodules are noted. ABDOMEN: Nodularity is seen along the capsular surface of the liver unchanged from the prior study. The portal vein and hepatic vein in its are patent. The splenic vein is patent. The spleen is unremarkable. No focal splenic lesions are noted. The adrenal glands are normal in size. No adrenal lesions are noted. The kidneys are normal in appearance, a simple cyst is seen in the upper pole the right kidney. The pancreas is normal in size without focal pancreatic lesions. There is no adenopathy in the abdomen. No free fluid is seen in the abdomen. A descending colostomy is noted. Omental nodularity is seen best adjacent to the descending colon on series 2 image 163, table position 383. This is not significantly changed from the prior study. Impression: No significant change in multiple serosal hepatic metastases and omental metastatic disease. Electronically signed by: Cindy Llanes M.D. ASSESSMENT AND PLAN: Ms. 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 ??She comes in for continued treatment and follow-up. ?1.?Metastatic neuroendocrine tumor of the ilium: Discussed the CT scan results that show stable disease. Chromogranin A is pending at time of visit today. She will continue with monthly octreotide LAR injections and return in 4 months for next ROV and CT scan neck/chest/abdomen/pelvis. Consider PET scan annually. Continue Xgeva for osseous disease. 2. Dizziness S/p fall: obtain head CT to r/o SDH. May have concussion. R/o acute process/metastasis. Advised checking BP at home and to f/u with PCP. 3. Peristomal pain: Advised not doubling her gabapentin dosing given dizziness. Advised 600 mg TID as tolerated. Should she still have pain and is tolerating the TID dosing, could consider taking 900mg q HS along with the 600 mg in the AM and afternoon. Consider pain management referral. 4. Mood/emotional support: On cymbalta; managed by PCP. discussed counseling services. She is agreeable to talking with someone. 5. Diarrhea: initially improved after octreotide LAR injections. Did not improve on short acting octreotide. Advised trial of either metamucil or PRN imodium. 6. COVID-19 vaccine: scheduled for #1 dose 08/25/2020. I have spent 40 minutes with La and her daughter face to face today. All questions were answeredby the end of their visit. Sabrina Willard NP Division of Medical Oncology Animal Care Worker completed by using [employer] speaking software, therefore, transcriptionvariances may occur. Cosigned by Eren Cr Jr., MD at 08/17/2020 4:19 PM PAIL TESTER TESTER TESTER documented in this encounter Plan of Treatment Not on file documented as of this encounter Results * Comprehensive metabolic panel (12/06/2020 3:09 PM CDT) Sodium 138 135 - 145 mmol/L [facility]ERMIN[facility] Comment:Testing performed by : [facility], [address] [place] [phone] Potassium, pl 3.8 3.3 - 4.9 mmol/L [facility]ERMIN[facility] Comment:Testing performed by : [facility], [address] [place] [phone] Chloride 103 97 - 110 mmol/L [facility]ERMIN[facility] Comment:Testing performed by : [facility], [address] [place] [phone] CO2 31 22 - 32 mmol/L CERMINNIE [facility] Comment:Testing performed by : [facility], [address] [place] [phone] Anion gap 4 2 - 15 mmol/L CERMINNIE [facility]J Comment:Testing performed by : [facility], [address] [place] [phone] BUN 16 8 - 25 mg/dL JASON [facility] Comment:Testing performed by : [facility], [address] [place] [phone] Creatinine 0.97 0.60 - 1.10 mg/dL JASON [facility] Comment:Testing performed by : [facility], [address] [place] [phone] Glucose 137 70 - 199 mg/dL CERNER [facility] Comment: [...] was last revised 2017. Testing performed by: [address] Calcium 10.1 8.5 - 10.3 mg/dL C[facility]ER [facility] Comment:Testing performed by : [place] [phone] Bilirubin, total 0.4 0.1 - 1.2 mg/dL [facility]ER [facility] Comment:Testing performed by : [address] [phone] Protein, pl 6.6 6.5 - 8.5 g/dL C[facility]ER [facility] Comment:Testing performed by : [address] [phone] Albumin 4.2 3.5 - 5.0 g/dL [facility] Comment:Testing performed by : [address] [phone] Alk phos 116 40 - 130 Units/L CERNER [facility] Comment:Testing performed by : [address] [phone] ALT 17 7 - 45 Units/L CERNER [facility] Comment:Testing performed by : [address] [phone] AST 21 10 - 45 Units/L [facility] Comment:Testing performed by : [address] [phone] Blood specimen (specimen) 12/06/2020 3:09 PM CDT 12/06/2020 3:10 PM CDT us Eren Cr MD LAB BLOOD ORDERABLES Final Re sult BANNERMINNIE [facility] Department [place] [address] * (ABNORMAL) CBC with auto differential (12/06/2020 3:09 PM CDT) WBC 5.2 3.8 - 9.8 K/cumm JASON BLACK Comment:Testing performed by : [address] [phone] Hgb 12.0(L) 12.1 - 15.1 g/dL JASON BL[facility] Comment:Testing performed by : [address] [phone] Hct 35.1(L) 36.1 - 44.3 % JASON BLACK Comment:Testing performed by : [facility], [address] [place] [phone] Plt 153 140 - 440 K/cumm JASON BLACK Comment:Testing performed by : [address] [phone] MPV 7.4 6.8 - 10.4 fL JASON BLACK Comment:Testing performed by : [address] [phone] RBC 3.74(L) 3.90 - 5.00 M/cumm JASON BLACK Comment:Testing performed by : [facility], [address] [place] [phone] MCV 93.9 80.0 - 97.6 fL CERMINNIE [facility]J Comment:Testing performed by : [address] [phone] MCH 32.1 26.7 - 33.7 pg JASON BLACK Comment:Testing performed by : [address] [phone] MCHC 34.2 32.7 - 35.5 g/dL JASON BLACK Comment:Testing performed by : [facility], [address] [facility] [phone] RDW CV 13.8 11.8 - 14.6 % [facility] Comment:Testing performed by : [facility], [address] [place] [phone] NRBC abs 0.00 0.00 - 0.01 K/cumm JASON [facility] Comment:Testing performed by : [facility], [address] [place] [phone] Blood specimen (specimen) 12/06/2020 3:09 PM CDT 12/06/2020 3:10 PM CDT Eren Cr MD LAB BLOOD ORDERABLES Final Re sult JASON [facility] Department [place] [address] * (ABNORMAL) Chromogranin A (12/06/2020 2:55 PM CDT) Chromogranin A 789(H) <93 ng/mL JASON [facility] Comment: Impaired renal or hepatic function [...] homogeneous time-resolved immunofluorescent assay manufactured by [employer] and performed on the [employer] Kryptor Compact Plus. ? Values obtained with different assay methods or kits may be different and cannot be used interchangeably. ? Test results cannot be interpreted as absolute evidence for the presence or absence of malignant disease. Test Performed by: [place] [address] [place] [address] [place] Aide: Immanuel Novak M.D. Ph.D.; CLIA# [id number] Blood specimen (specimen) 12/06/2020 2:55 PM CDT 12/06/2020 8:00 PM CDT us Eren Cr MD LAB BLOOD ORDERABLES Final Re sult JASON [facility] Department [place] [address] * CT soft tissue neck with contrast [...] are normal. The limited view of the [place] is unremarkable. The visualized portions [...] are normal. The limited view of the [place] is unremarkable. The visualized portions [...] by: Greyson Saucedo M.D. Eren Cr MD IMG CT PROCEDURES Final Resul t * CT [...] CT PROCEDURES Final Resul t * (ABNORMAL) Chromogranin A (11/07/2020 4:02 PM CDT) Chromogranin A 628(H) <93 ng/mL JASON BLACK Comment: Impaired renal [...] a homogeneous time-resolved immunofluorescent assay manufactured by [employer] and performed on the [employer]or Compact Plus. ? Values obtained with different assay methods or kits may be different and cannot be used interchangeably. ? Test results cannot be interpreted as absolute evidence for the presence or absence of malignant disease. Test Performed by: [place] [address] [place] [address] [place] Aide: Immanuel Novak M.D. Ph.D.; CLIA# [id number] Blood specimen (specimen) 11/07/2020 4:02 PM CDT 11/07/2020 5:05 PM CDT Eren Cr MD LAB BLOOD ORDERABLES Final Re sult JASON [facility] Department [place] [address] * (ABNORMAL) Comprehensive metabolic panel (11/07/2020 4:02 PM CDT) Sodium 141 135 - 145 mmol/L JASON BLACK Comment:Testing performed by : [facility], [address] [place] [phone] Potassium, pl 3.8 3.3 - 4.9 mmol/L [facility] Comment:Testing performed by : [facility], [address] [place] [phone] Chloride 104 97 - 110 mmol/L [facility] Comment:Testing performed by : [facility], [address] [place] [phone] CO2 28 22 - 32 mmol/L [facility] Comment:Testing performed by : [facility], [address] [place] [phone] Anion gap 9 2 - 15 mmol/L [facility] Comment:Testing performed by : [facility], [address] [place] [phone] BUN 13 8 - 25 mg/dL [facility] Comment:Testing performed by : [facility], [address] [place] [phone] Creatinine 0.97 0.60 - 1.10 mg/dL [facility] Comment:Testing performed by : [facility], [address] [place] [phone] Glucose 101 70 - 199 mg/dL CERNER [...] last revised 2017. Testing performed by: [facility], [address] [place] [phone] Calcium 10.9(H) 8.5 - 10.3 mg/dL [facility] Comment:Testing performed by : [facility], [address] [place] [phone] Bilirubin, total 0.5 0.1 - 1.2 mg/dL [facility] Comment:Testing performed by : [facility], [address] [place] [phone] Protein, pl 7.0 6.5 - 8.5 g/dL JASON BLACK Comment:Testing performed by : [facility], [address] [place] [phone] Albumin 4.6 3.5 - 5.0 g/dL J[facility]ON BLACK Comment:Testing performed by : [facility], [address] [place] [phone] Alk phos 93 40 - 130 Units/L J[facility] BLACK Comment:Testing performed by : [facility], [address] [place] [phone] ALT 18 7 - 45 Units/L J[facility] BLACK Comment:Testing performed by : [facility], [address] [place] [phone] AST 22 10 - 45 Units/L JASON [facility] Comment:Testing performed by : [facility], [address] [place] [phone] Blood specimen (specimen) 11/07/2020 4:02 PM CDT 11/07/2020 4:04 PM CDT us Eren Cr MD LAB BLOOD ORDERABLES Final Re sult [facility] Department [place] [address] * (ABNORMAL) CBC with auto differential (11/07/2020 4:02 PM CDT) WBC 5.0 3.8 - 9.8 K/cumm J[facility]ON BL[facility] Comment:Testing performed by : [facility], [address] [place] [phone] Hgb 13.2 12.1 - 15.1 g/dL JASON BLACK Comment:Testing performed by : [facility], [address] [place] [phone] Hct 38.3 36.1 - 44.3 % J[facility]ON BLACK Comment:Testing performed by : [facility], [address] [place] [phone] Plt 136(L) 140 - 440 K/cumm JASON BLACK Comment:Testing performed by : [facility], [address] [place], [place] [phone] MPV 7.7 6.8 - 10.4 fL JASON BLACK Comment:Testing performed by : [place] [id number] RBC 4.13 3.90 - 5.00 M/cumm JASON BLACK Comment:Testing performed by : [place] [address] MCV 92.8 80.0 - 97.6 fL JASON BLACK Comment:Testing performed by : [facility], [address] [place], [place] [phone] MCH 32.0 26.7 - 33.7 pg JASON BLACK Comment:Testing performed by : [place] [id number] MCHC 34.5 32.7 - 35.5 g/dL JASON BLACK Comment:Testing performed by : [place] [id number] RDW CV 13.5 11.8 - 14.6 % JASON BLACK Comment:Testing performed by : [facility], [address] [place] [phone] NRBC abs 0.00 0.00 - 0.01 K/cumm JASON BLACK Comment:Testing performed by : [place] [id number] Blood specimen (specimen) 11/07/2020 4:02 PM CDT 11/07/2020 4:04 PM CDT us Eren Cr MD LAB BLOOD ORDERABLES Final Re sult JASON BLACK [facility] [place] [address] * (ABNORMAL) Chromogranin A (10/10/2020 4:02 PM CDT) Chromogranin A 468(H) <93 ng/mL JASON BLACK Comment: Impaired renal [...] a homogeneous time-resolved immunofluorescent assay manufactured by [facility] and performed on the [employer] Kryptor Compact Plus. ? Values obtained with different assay methods or kits may be different and cannot be used interchangeably. ? Test results cannot be interpreted as absolute evidence for the presence or absence of malignant disease. Test Performed by: [place] [id number] [place] Aide: Immanuel Novak M.D. Ph.D.; CLIA# [id number] Blood specimen (specimen) 10/10/2020 4:02 PM CDT 10/10/2020 4:45 PM CDT us Eren Cr MD LAB BLOOD ORDERABLES Final Re sult JASON BLACK [facility] Department of Laboratories [place], [place] [id number] * (ABNORMAL) Comprehensive metabolic panel (10/10/2020 4:02 PM CDT) Sodium 140 135 - 145 mmol/L JASON LEAVITT Comment:Testing performed by : [facility], [address] [place] [phone] Potassium, pl 4.2 3.3 - 4.9 mmol/L JASON LEAVITT Comment:Testing performed by : [facility], [address] [place] [phone] Chloride 102 97 - 110 mmol/L JASON LEAVITT Comment:Testing performed by : [facility], [address] [place] [phone] CO2 31 22 - 32 mmol/L JASON LEAVITT Comment:Testing performed by : [facility], [address] [place] [phone] Anion gap 7 2 - 15 mmol/L CERNER BJ Comment:Testing performed by : [facility], [address] [place] [phone] BUN 15 8 - 25 mg/dL CERNER BJ Comment:Testing performed by : [facility], [address] [place] [phone] Creatinine 1.03 0.60 - 1.10 mg/dL CERNER BJ Comment:Testing performed by : [facility], [address] [place] [phone] Glucose 122 70 - 199 mg/dL CERNER BJ Comment: [...] last revised 2017. Testing performed by: [facility], [address] [place] [phone] Calcium 11.0(H) 8.5 - 10.3 mg/dL CERNER BJ Comment:Testing performed by : [facility], [address] [place] [phone] Bilirubin, total 0.4 0.1 - 1.2 mg/dL CERNER BJ Comment:Testing performed by : [facility], [address] [place] [phone] Protein, pl 7.3 6.5 - 8.5 g/dL CERNER BJ Comment:Testing performed by : [facility], [address] [place] [phone] Albumin 4.5 3.5 - 5.0 g/dL CERNER BJ Comment:Testing performed by : [facility], [address] [place] [phone] Alk phos 83 40 - 130 Units/L CERNER BJ Comment:Testing performed by : [facility], [address] [place] [phone] ALT 17 7 - 45 Units/L JASON BLACK Comment:Testing performed by : [facility], [address] [place] [phone] AST 22 10 - 45 Units/L JASON BLACK Comment:Testing performed by : [facility], [address] [place] [phone] Blood specimen (specimen) 10/10/2020 4:02 PM CDT 10/10/2020 4:05 PM CDT us Eren Cr MD LAB BLOOD ORDERABLES Final Re sult JASON BLACK [facility] Department [place] [address] * (ABNORMAL) CBC with auto differential (10/10/2020 4:02 PM CDT) WBC 4.5 3.8 - 9.8 K/cumm JASON BLACK Comment:Testing performed by : [facility], [address] [place] [phone] Hgb 13.0 12.1 - 15.1 g/dL JASON BLACK Comment:Testing performed by : [facility], [address] [place] [phone] Hct 38.0 36.1 - 44.3 % JASON BLACK Comment:Testing performed by : [facility], [address] [place] [phone] Plt 130(L) 140 - 440 K/cumm JASON BLACK Comment:Testing performed by : [facility], [address] [place] [phone] MPV 7.3 6.8 - 10.4 fL JASON BLACK Comment:Testing performed by : [address] [phone] RBC 4.11 3.90 - 5.00 M/cumm JASON BLACK Comment:Testing performed by : [facility], [address] [place] [phone] MCV 92.3 80.0 - 97.6 fL JASON BLACK Comment:Testing performed by : [facility], [address] [place] [phone] MCH 31.6 26.7 - 33.7 pg JASON BLACK Comment:Testing performed by : [facility], [address] [place] [phone] MCHC 34.2 32.7 - 35.5 g/dL JASON BLACK Comment:Testing performed by : [facility], [address] [place] [phone] RDW CV 13.5 11.8 - 14.6 % JASON BLACK Comment:Testing performed by : [facility], [address] [place] [phone] NRBC abs 0.00 0.00 - 0.01 K/cumm JASON BLACK Comment:Testing performed by : [facility], [address] [place] [phone] Blood specimen (specimen) 10/10/2020 4:02 PM CDT 10/10/2020 4:05 PM CDT us Eren Cr MD LAB BLOOD ORDERABLES Final Re sult JASON BLACK [facility] Department [place] [address] * (ABNORMAL) Chromogranin A (09/12/2020 4:06 PM PAIL TESTER) Chromogranin A 407(H) <93 ng/mL JASON BLACK Comment: Impaired renal [...] a homogeneous time-resolved immunofluorescent assay manufactured by [facility] and performed on the [employer] Kryptor Compact Plus. ? Values obtained with different assay methods or kits may be different and cannot be used interchangeably. ? Test results cannot be interpreted as absolute evidence for the presence or absence of malignant disease. Test Performed by: [facility] [address] [place] [address] [place] Aide: Immanuel Novak M.D. Ph.D.; CLIA# [id number] Blood specimen (specimen) 09/12/2020 4:06 PM PAIL TESTER 09/12/2020 5:02 PM PAIL TESTER us Eren Cr MD LAB BLOOD ORDERABLES Final Re sult [facility]NER[facility] Department [place] [address] * (ABNORMAL) Comprehensive metabolic panel (09/12/2020 4:06 PM PAIL TESTER) Sodium 141 135 - 145 mmol/L JASON [facility] Comment:Testing performed by : [facility], [address] [place] [phone] Potassium, pl 4.2 3.3 - 4.9 mmol/L JASON [facility] Comment:Testing performed by : [facility], [address] [place] [phone] Chloride 104 97 - 110 mmol/L JASON [facility] Comment:Testing performed by : [facility], [address] [place] [phone] CO2 32 22 - 32 mmol/L JASON [facility] Comment:Testing performed by : [facility], [address] [place] [phone] Anion gap 5 2 - 15 mmol/L JASON [facility] Comment:Testing performed by : [facility], [address] [place] [phone] BUN 15 8 - 25 mg/dL JASON [facility] Comment:Testing performed by : [facility], [address] [place] [phone] Creatinine 0.88 0.60 - 1.10 mg/dL JASON BLACK Comment:Testing performed by : [facility], [address] [place] [phone] Glucose 98 70 - 199 mg/dL CERNER BJ Comment: [...] was last revised 2017. Testing performed by: [place] [phone] Calcium 10.8(H) 8.5 - 10.3 mg/dL CERNER BJ Comment:Testing performed by : [address] [address] Bilirubin, total 0.3 0.1 - 1.2 mg/dL CERNER BJ Comment:Testing performed by : [address] [phone] Protein, pl 6.8 6.5 - 8.5 g/dL CERNER BJ Comment:Testing performed by : [address] [phone] Albumin 4.3 3.5 - 5.0 g/dL CERNER BJ Comment:Testing performed by : [address] [phone] Alk phos 82 40 - 130 Units/L CERNER BJ Comment:Testing performed by : [address] [phone] ALT 16 7 - 45 Units/L CERNER BJ Comment:Testing performed by : [address] [phone] AST 20 10 - 45 Units/L CERNER BJ Comment:Testing performed by : [address] [phone] Blood specimen (specimen) 09/12/2020 4:06 PM PAIL TESTER 09/12/2020 4:09 PM PAIL TESTER us Eren Cr MD LAB BLOOD ORDERABLES Final Re sult JASON BLACK [facility] [place] [address] * (ABNORMAL) CBC with auto differential (09/12/2020 4:06 PM PAIL TESTER) WBC 4.8 3.8 - 9.8 K/cumm JASON BLACK Comment:Testing performed by : [address] [address] Hgb 12.7 12.1 - 15.1 g/dL JASON BLACK Comment:Testing performed by : [address] [address] Hct 37.8 36.1 - 44.3 % JASON BLACK Comment:Testing performed by : [facility], [address] [place] [phone] Plt 117(L) 140 - 440 K/cumm JASON BLACK Comment:Testing performed by : [address] [address] MPV 7.3 6.8 - 10.4 fL JASON BLACK Comment:Testing performed by : [address] [phone] RBC 4.06 3.90 - 5.00 M/cumm JASON BLACK Comment:Testing performed by : [facility], [address] [place] [phone] MCV 93.2 80.0 - 97.6 fL JASON BLACK Comment:Testing performed by : [address] [address] MCH 31.3 26.7 - 33.7 pg JASON BLACK Comment:Testing performed by : [address] [address] MCHC 33.6 32.7 - 35.5 g/dL JASON BLACK Comment:Testing performed by : [facility], [address] [facility] [phone] RDW CV 13.3 11.8 - 14.6 % JASON [facility] Comment:Testing performed by : [facility], [address] [place] [phone] NRBC abs 0.00 0.00 - 0.01 K/cumm JASON [facility] Comment:Testing performed by : [facility], [address] [place] [phone] Blood specimen (specimen) 09/12/2020 4:06 PM PAIL TESTER 09/12/2020 4:09 PM PAIL TESTER us Eren Cr MD LAB BLOOD ORDERABLES Final Re sult JASON [facility] Department [place] [address] * CT head with contrast (08/15/2020 6:11 PM PAIL TESTER) Anatomical Region Laterality Modality Head and Neck N/A Computed Tomogra phy 08/15/2020 7:39 PM PAIL TESTER Impressions 08/15/2020 10:32 PM PAIL TESTER 1. No acute intracranial abnormality on this contrast enhanced CT of the head. 2. No CT evidence of intracranial malignancy. Dictated by: Edwin Darnell M.D. The radiology attending physician has personally reviewed this study, and had reviewed and/or edited this written report and agrees with it. Electronically signed by: Benja Heaton M.D. Narrative 08/15/2020 10:32 PM PAIL TESTER EXAMINATION: Head CT with contrast HISTORY: 69-year-old woman status post fall. TECHNIQUE: CT of the brain was performed with images acquired from skull base to vertex after the uneventful administration of intravenous contrast. Contrast information: 75 mL Optiray-350 COMPARISON: None available. FINDINGS: Chronic lacunar infarction in the basal ganglia bilaterally. Scattered foci of hypoattenuation which are indeterminate but suggestive of chronic microvascular disease. Topogram demonstrates no lytic lesions or fractures. There is no acute intracranial hemorrhage. Ventricles are of normal size and morphology. No mass effect or midline shift is present. The mcrae-white matter differentiation is normal. The visualized portions of the orbits are normal. The visualized portions of the mastoids are normal. The visualized portions of the paranasal sinuses are normal. No fractures are identified. There are no areas of abnormal contrast enhancement. Procedure Note Benja Heaton MD - 08/15/2020 EXAMINATION: Head CT with contrast HISTORY: 69-year-old woman status post fall. TECHNIQUE: CT of the brain was performed with images acquired from skull base to vertex after the uneventful administration of intravenous contrast. Contrast information: 75 mL Optiray-350 COMPARISON: None available. FINDINGS: Chronic lacunar infarction in the basal ganglia bilaterally. Scattered foci of hypoattenuation which are indeterminate but suggestive of chronic microvascular disease. Topogram demonstrates no lytic lesions or fractures. There is no acute intracranial hemorrhage. Ventricles are of normal size and morphology. No mass effect or midline shift is present. The mcrae-white matter differentiation is normal. The visualized portions of the orbits are normal. The visualized portions of the mastoids are normal. The visualized portions of the paranasal sinuses are normal. No fractures are identified. There are no areas of abnormal contrast enhancement. IMPRESSION: 1. No acute intracranial abnormality on this contrast enhanced CT of the head. 2. No CT evidence of intracranial malignancy. Dictated by: Edwin Darnell M.D. The radiology attending physician has personally reviewed this study, and had reviewed and/or edited this written report and agrees with it. Electronically signed by: Benja Heaton M.D. Eren Cr MD [facility] PROCEDURES Final Resul t documented in [...] rst Ordered Date ONCBCN INJECTION APPOINTMENT REQUEST 4 07/202009/12/2020 ONCBCN LAB APPOINTMENT 4 12/06/202009/12 ONCBCN CLINIC APPOINTMENT REQUEST 1 021 documented in this encounter Care Teams Home Care Companion Relationship Specialty Start Date End Date Julio César Briseno MD PCP - General 10/01/16 Eren Cr MD Referring Physician Medical Oncology 11/25/18 Yohana Bowen MD Radiation Oncologist Radiation Oncology 11/25/18 documented as of this encounter
--- OUTSIDE RECORDS SUMMARY | 2024-06-25 22:30 | XMS_ITS | Encounter Summary ---
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) Procedures [place] OCTREOTIDE INJECTION, DEPOT Octreotide 28 Day Cycles - Carcinoid Eren Cr MD [address] [facility] [address] [place] [address] Phone: tel: fax: [facility] [address] [address] Phone: tel: fax: Referral ID Status Reason Start Date Expiration Date V isits Requested Visits Authorized [id number] Authorized 11/28/2017 02/05/2025 1 150 Encounter Details Date Type Department Care Team (Late st Contact Info) Description 08/15/2020 3:00 PM GLAZE WIPER Infusion [facility] On[facility] [address] [place] [address] [place] [address] Neuroendocrine carcinoma (CMS/HCC) (Primary Dx); Malignant neoplasm [...] on file Legal Sex Female 2:41 PM GLAZE WIPER Gender Identity Not on file Sexual Orientation Straight 02/19/2021 9: 29 AM CDT Occupation Industry Job Start Date Job End Date retired Not on file Not on file Not on file documented as of this encounter Nursing Notes * Minerva Jones RN - 08/15/2020 3:00 PM CST Tolerated injections without difficulty. Discharged ambulatory with AVS. E WIPER documented in this encounter Plan of Treatment [...] 120 mg 120 mg, subcutaneous, Once, On Sat08/15/20 at 1700, For 1 dose, Calcium level should be greater than 8 mg/dl Administer injection in upper arm, abdomen or upper thigh Refrigerate. Allow to stand 15 to 30 mins prior to useIndications:Bone metastasis,Neuro-endocrine carcinoma (HCC) Given 08/15/2020 4:45 PM GLAZE WIPER 120 mg Right Lower Abdomen octreotide LAR (SandoSTATIN LAR) extended release intramuscular injection 30 mg 30 mg, intramuscular, Once, On Sat08/15/20 at 1700, For 1 dose, Refrigerate. For IM intragluteal administration only- alternate gluteal sites. Shake.Indications:Malignan t neoplasm metastatic to liver (HCC),Neuroendocrine carcinoma (HCC) Given 08/15/2020 5:00 PM GLAZE WIPER 30 mg Right Dorsogluteal/Butto ck documented in this encounter Orders Nursing Count Last Ordered Date First Orde red Date ONCBCN NURSING COMMUNICATION [id number] 1 0 08/15/2020 PHYSICIAN COMMUNICATION ORDER 1 08/15/2020 Appointment Requests Count Last Ordered Date Fi rst Ordered Date ONCBCN INJECTION APPOINTMENT REQUEST 1 02/2021 documented in this encounter Care Teams Video Editing Internship Relationship Specialty Start Date End Date Julio César Briseno MD PCP - General 10/01/16 Eren Cr MD Referring Physician Medical Oncology 11/25/18 Yohana Bowen MD Radiation Oncologist Radiation Oncology 11/25/18 documented as of this encounter
--- OUTSIDE RECORDS SUMMARY | 2024-06-25 22:30 | XMS_ITS | Encounter Summary ---
Author Organization [facility] Address [address] [place] [address] Phone Care Team Providers Care Linux Admin Name Role Phone Julio César Briseno MD Primary Care Provider [phone] Eren Cr MD Unavailable [phone] Yohana Bowen MD Unavailable Reason for Visit * Episode Based Medications (Routine) - Authorized Specialty Diagnoses / Procedures Referred By Evelyne t Referred To Contact Oncology Diagnoses Neuroendocrine carcinoma (HCC) Malignant neoplasm metastatic to liver (HCC) Procedures [place] OCTREOTIDE INJECTION, DEPOT Octreotide 28 Day Cycles - Carcinoid Eren Cr MD [address] [facility] [address] [place] [address] Phone: tel: fax: [facility] [address] [address] Phone: tel: fax: Referral ID Status Reason Start Date Expiration Date V isits Requested Visits Authorized [id number] Authorized 11/28/2017 02/05/2025 1 150 Encounter Details Date Type Department Care Team (Late st Contact Info) Description 06/06/2020 3:30 PM LEGAL SUPPORT MANAGER Lab [facility] 7th [place] [address] [place] [phone] Neuroendocrine carcinoma (CMS/HCC); Malignant neoplasm metastatic to liver (CMS/HCC); Bone metastasis (CMS/HCC) Social History Tobacco Use Types Packs/Day Years Used Date Smoking Tobacco: Never Smokeless Tobacco: Never Alcohol Use Standard Drinks/Week Comments Yes 1 (1 standard drink = 0.6 oz pur e alcohol) Comments No Sex and Gender Information Value Date Recorded Sex Assigned at Not on file Legal Sex Female 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 MANAGER Gender Identity Not on file Sexual Orientation Straight 02/19/2021 9: 29 AM CDT Occupation Industry Job Start Date Job End Date retired Not on file Not on file Not on file documented as of this encounter Plan of Treatment Not on file documented as of this encounter Procedures Procedure Name Priority Date/Time Associated Diagnosis Comments DIFFERENTIAL AUTO Routine 06/06/2020 3:3 7 PM LEGAL SUPPORT MANAGER Neuroendocrine carcinoma (CMS/HCC) Malignant neoplasm metastatic to liver (CMS/HCC) CBC WITH AUTO DIFFERENTIAL Routine 06/06/2020 3:37 PM LEGAL SUPPORT MANAGER Neuroendocrine carcinoma (CMS/HCC) Malignant neoplasm metastatic to liver (CMS/HCC) PHOSPHORUS STAT 06/06/2020 3:37 PM LEGAL SUPPORT MANAGER Bone metastasis (CMS/HCC) Neuroendocrine carcinoma (CMS/HCC) Malignant neoplasm metastatic to liver (CMS/HCC) COMPREHENSIVE METABOLIC PANEL STAT 06/06/2020 3:37 PM LEGAL SUPPORT MANAGER Neuroendocrine carcinoma (CMS/HCC) Malignant neoplasm metastatic to liver (CMS/HCC) CHROMOGRANIN A Routine 06/06/2020 3:36 PM LEGAL SUPPORT MANAGER Neuroendocrine carcinoma (CMS/HCC) Malignant neoplasm metastatic to liver (CMS/HCC) documented in this encounter Results * (ABNORMAL) Differential, auto (06/06/2020 3:37 PM LEGAL SUPPORT MANAGER) Neutrophil abs 3.7 1.8 - 6.6 K/cumm [facility] Comment:Testing performed by : [facility], [facility] [phone] Lymphocyte abs 0.5(L) 1.2 - 3.3 K/cumm [facility] Comment:Testing performed by : [facility], [address] [place] [phone] Monocyte abs 0.6 0.2 - 1.2 K/cumm [facility] Comment:Testing performed by : [facility], [address] [place] [phone] Eosinophil abs 0.1 0.0 - 0.5 K/cumm [facility] Comment:Testing performed by : [facility], [address] [place] [phone] Basophil abs 0.0 0.0 - 0.2 K/cumm [facility] Comment:Testing performed by : [facility], [address] [place] [phone] Neutrophil pct 75.2 % [facility] Comment: Interpretive Data Percent cell count reference ranges are not reported, since discordance with absolute values may lead to misinterpretation of CBC data. Current Interpretive Data was last revised on 2017. Testing performed by: [facility], [address] [place] [phone] Lymphocyte pct 11.1 % [facility] Comment: Interpretive Data Percent cell count reference ranges are not reported, since discordance with absolute values may lead to misinterpretation of CBC data. Current Interpretive Data was last revised on 2017. Testing performed by: [facility], [address] [place] [phone] Monocyte pct 11.8 % [facility] Comment:Testing performed by : [facility], [address] [place] [phone] Eosinophil pct 1.3 % [facility] Comment:Testing performed by : [facility], [address] [place] [phone] Basophil pct 0.6 % [facility] Comment:Testing performed by : [address] [phone] Blood specimen (specimen) 06/06/2020 3:37 PM LEGAL SUPPORT MANAGER 06/06/2020 3:39 PM LEGAL SUPPORT MANAGER Eren Cr MD LAB BLOOD ORDERABLES Final Re sult Performing Organization Address [facility] Co de Phone Number [facility] [place] [address] * Phosphorus (06/06/2020 3:37 PM LEGAL SUPPORT MANAGER) [facility] Phosphorus, pl 2.5 2.3 - 4.5 mg/dL [facility] Comment:Testing performed by : [facility], [address] [place] [phone] Blood specimen (specimen) 06/06/2020 3:37 PM LEGAL SUPPORT MANAGER 06/06/2020 3:39 PM LEGAL SUPPORT MANAGER Eren Cr MD LAB BLOOD ORDERABLES Final Re sult Performing Organization Address [facility] de Phone Number [facility] [place] [address] * (ABNORMAL) CBC with auto differential (06/06/2020 3:37 PM LEGAL SUPPORT MANAGER) [facility] WBC 4.9 3.8 - 9.8 K/cumm [facility] Comment:Testing performed by : [facility], [address] [place] [phone] Hgb 13.6 12.1 - 15.1 g/dL [facility] Comment:Testing performed by : [facility], [address] [place] [phone] Hct 40.3 36.1 - 44.3 % [facility] Comment:Testing performed by : [facility], [address] [place] [phone] Plt 128(L) 140 - 440 K/cumm [facility] Comment:Testing performed by : [address] [address] MPV 7.9 6.8 - 10.4 fL [facility] Comment:Testing performed by : [address] [address] RBC 4.41 3.90 - 5.00 M/cumm [facility] Comment:Testing performed by : [facility], [address] [place] [phone] MCV 91.3 80.0 - 97.6 fL [facility] Comment:Testing performed by : [facility], [address] [place] [phone] MCH 30.8 26.7 - 33.7 pg [facility] Comment:Testing performed by : [facility], [address] [place] [phone] MCHC 33.7 32.7 - 35.5 g/dL [facility] Comment:Testing performed by : [facility], [address] [place] [phone] RDW CV 13.6 11.8 - 14.6 % [facility] Comment:Testing performed by : [facility], [address] [place] [phone] NRBC abs 0.01 0.00 - 0.01 K/cumm [facility] Comment:Testing performed by : [facility], [address] [place] [phone] Blood specimen (specimen) 06/06/2020 3:37 PM LEGAL SUPPORT MANAGER 06/06/2020 3:39 PM LEGAL SUPPORT MANAGER Eren Cr MD LAB BLOOD ORDERABLES Final Re sult [facility] [place] [address] * (ABNORMAL) Comprehensive metabolic panel (06/06/2020 3:37 PM LEGAL SUPPORT MANAGER) Sodium 139 135 - 145 mmol/L [facility] Comment:Testing performed by : [facility], [address] [place] [phone] Potassium, pl 4.0 3.3 - 4.9 mmol/L [facility] Comment: Hemolyzed; result may be falsely elevated. Testing performed by: [facility], [address] [place] [phone] Chloride 105 97 - 110 mmol/L [facility] Comment:Testing performed by : [facility], [address] [place] [phone] CO2 29 22 - 32 mmol/L [facility] Comment:Testing performed by : [facility], [address] [place] [phone] Anion gap 5 2 - 15 mmol/L [facility] Comment:Testing performed by : [facility], [address] [place] [phone] BUN 11 8 - 25 mg/dL [facility] Comment:Testing performed by : [facility], [address] [place] [phone] Creatinine 0.78 0.60 - 1.10 mg/dL [facility] Comment:Testing performed by : [facility], [address] [place] [phone] Glucose 115 70 - 199 mg/dL [facility] Comment: [...] was last revised 2017. Testing performed by: [facility], [address] [place] [phone] Calcium 10.5(H) 8.5 - 10.3 mg/dL [facility] Comment:Testing performed by : [facility], [address] [place] [phone] Bilirubin, total 0.4 0.1 - 1.2 mg/dL [facility] Comment:Testing performed by : [address] [address] Protein, pl 7.2 6.5 - 8.5 g/dL [facility] Comment:Testing performed by : [facility], [address] [place] [phone] Albumin 4.4 3.5 - 5.0 g/dL [facility] Comment:Testing performed by : [facility], [address] [place] [phone] Alk phos 110 40 - 130 Units/L [facility] Comment:Testing performed by : [facility], [address] [facility] [phone] ALT 14 7 - 45 Units/L [facility] Comment:Testing performed by : [facility], [address] [facility] [phone] AST 23 10 - 45 Units/L [facility] Comment: Hemolyzed; result may be falsely elevated. Testing performed by: [facility], [address] [facility] [phone] Blood specimen (specimen) 06/06/2020 3:37 PM LEGAL SUPPORT MANAGER 06/06/2020 3:39 PM LEGAL SUPPORT MANAGER Eren Cr MD LAB BLOOD ORDERABLES Final Re sult [facility] [place] [address] * (ABNORMAL) Chromogranin A (06/06/2020 3:36 PM LEGAL SUPPORT MANAGER) Chromogranin A 313(H) <93 ng/mL [facility] Comment: Impaired renal or hepatic function [...] testing method is a homogeneous time-resolved immunofluorescent assay. ? Values obtained with different assay methods or kits may be different and cannot be used interchangeably. ? Test results cannot be interpreted as absolute evidence for the presence or absence of malignant disease. Test Performed by: [facility] - [address] [address] Manager Social Services: Immanuel Novak M.D. Ph.D.; CLIA# [id number] Blood specimen (specimen) 06/06/2020 3:36 PM LEGAL SUPPORT MANAGER 06/06/2020 4:32 PM LEGAL SUPPORT MANAGER us Eren Cr MD LAB BLOOD ORDERABLES Final Re sult [facility] [place] [address] documented in this encounter Visit Diagnoses Diagnosis Neuroendocrine carcinoma (HCC) Other malignant neoplasm of unspecified site Malignant neoplasm metastatic to liver (HCC) Bone metastasis Secondary malignant neoplasm of bone and bone marrow documented in this encounter Orders Appointment Requests Count Last Ordered Date Fi rst Ordered Date ONCBCN LAB APPOINTMENT 1 06/06/2020 documented in this encounter Care Teams Linux Admin Relationship Specialty Start Date End Date Julio César Briseno MD PCP - General 10/01/16 Eren Cr MD Referring Physician Medical Oncology 11/25/18 Yohana Bowen MD Radiation Oncologist Radiation Oncology 11/25/18 documented as of this encounter
--- OUTSIDE RECORDS SUMMARY | 2024-06-25 22:30 | XMS_ITS | Encounter Summary ---
Author Organization 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) Procedures [place] OCTREOTIDE INJECTION, DEPOT Octreotide 28 Day Cycles - Carcinoid Eren Cr MD [address] [facility] [address] [place] [address] Phone: tel: fax: [facility] [address] [address] Phone: tel: fax: Referral ID Status Reason Start Date Expiration Date V isits Requested Visits Authorized [id number] Authorized 11/28/2017 02/05/2025 1 150 Encounter Details Date Type Department Care Team (Late st Contact Info) Description 07/04/2020 3:30 PM SLITTER SCORER CUT OFF OPERATOR Lab [facility] Oncology [facility] 7th [place] [address] [place] [address] Neuroendocrine carcinoma (CMS/HCC); Malignant neoplasm metastatic to liver (CMS/HCC); Bone metastasis (CMS/HCC) Social History Tobacco Use Types Packs/Day Years Used Date Smoking Tobacco: Never Smokeless Tobacco: Never Alcohol Use Standard Drinks/Week Comments Yes 1 (1 standard drink = 0.6 oz pur e alcohol) Comments No Sex and Gender Information Value Date Recorded Sex Assigned at Not on file Legal Sex Female 2:41 PM SLITTER SCORER CUT OFF OPERATOR Gender Identity Not on file Sexual Orientation Straight 02/19/2021 9: 29 AM CDT Occupation Industry Job Start Date Job End Date retired Not on file Not on file Not on file documented as of this encounter Plan of Treatment Not on file documented as of this encounter Procedures Procedure Name Priority Date/Time Associated Diagnosis Comments DIFFERENTIAL AUTO Routine 07/04/2020 3:3 0 PM SLITTER SCORER CUT OFF OPERATOR Neuroendocrine carcinoma (CMS/HCC) Malignant neoplasm metastatic to liver (CMS/HCC) CHROMOGRANIN A Routine 07/04/2020 3:30 PM SLITTER SCORER CUT OFF OPERATOR Neuroendocrine carcinoma (CMS/HCC) Malignant neoplasm metastatic to liver (CMS/HCC) CBC WITH AUTO DIFFERENTIAL Routine 07/04/2020 3:30 PM SLITTER SCORER CUT OFF OPERATOR Neuroendocrine carcinoma (CMS/HCC) Malignant neoplasm metastatic to liver (CMS/HCC) PHOSPHORUS STAT 07/04/2020 3:30 PM SLITTER SCORER CUT OFF OPERATOR Bone metastasis (CMS/HCC) Neuroendocrine carcinoma (CMS/HCC) Malignant neoplasm metastatic to liver (CMS/HCC) COMPREHENSIVE METABOLIC PANEL STAT 07/04/2020 3:30 PM SLITTER SCORER CUT OFF OPERATOR Neuroendocrine carcinoma (CMS/HCC) Malignant neoplasm metastatic to liver (CMS/HCC) documented in this encounter Results * (ABNORMAL) Differential, auto (07/04/2020 3:30 PM SLITTER SCORER CUT OFF OPERATOR) Neutrophil abs 3.7 1.8 - 6.6 K/cumm [facility] Comment:Testing performed by : [facility], [facility] [phone] Lymphocyte abs 0.5(L) 1.2 - 3.3 K/cumm [facility] Comment:Testing performed by : [facility], [address] [place] [phone] Monocyte abs 0.6 0.2 - 1.2 K/cumm [facility] Comment:Testing performed by : [facility], [address] [place] [phone] Eosinophil abs 0.1 0.0 - 0.5 K/cumm [facility] Comment:Testing performed by : [facility], [address] [place] [phone] Basophil abs 0.0 0.0 - 0.2 K/cumm [facility] Comment:Testing performed by : [facility], [address] [place] [phone] Neutrophil pct 74.3 % [facility] Comment: Interpretive Data Percent cell count reference ranges are not reported, since discordance with absolute values may lead to misinterpretation of CBC data. Current Interpretive Data was last revised on 2017. Testing performed by: [facility], [address] [place] [phone] Lymphocyte pct 10.7 % [facility] Comment: Interpretive Data Percent cell count reference ranges are not reported, since discordance with absolute values may lead to misinterpretation of CBC data. Current Interpretive Data was last revised on 2017. Testing performed by: [facility], [address] [place] [phone] Monocyte pct 12.7 % [facility] Comment:Testing performed by : [facility], [address] [place] [phone] Eosinophil pct 1.8 % [facility] Comment:Testing performed by : [facility], [address] [place] [phone] Basophil pct 0.5 % [facility] Comment:Testing performed by : [address] [phone] Blood specimen (specimen) 07/04/2020 3:30 PM SLITTER SCORER CUT OFF OPERATOR 07/04/2020 3:34 PM SLITTER SCORER CUT OFF OPERATOR Eren Cr MD LAB BLOOD ORDERABLES Final Re sult Performing Organization Address [facility] Co de Phone Number [facility] [place] [address] * Phosphorus (07/04/2020 3:30 PM SLITTER SCORER CUT OFF OPERATOR) [facility] Phosphorus, pl 3.3 2.3 - 4.5 mg/dL [facility] Comment:Testing performed by : [facility], [address] [place] [phone] Blood specimen (specimen) 07/04/2020 3:30 PM SLITTER SCORER CUT OFF OPERATOR 07/04/2020 3:34 PM SLITTER SCORER CUT OFF OPERATOR Eren Cr MD LAB BLOOD ORDERABLES Final Re sult Performing Organization Address [facility] de Phone Number [facility] [place] [address] * (ABNORMAL) CBC with auto differential (07/04/2020 3:30 PM SLITTER SCORER CUT OFF OPERATOR) [facility] WBC 5.0 3.8 - 9.8 K/cumm [facility] Comment:Testing performed by : [facility], [address] [place] [phone] Hgb 13.4 12.1 - 15.1 g/dL [facility] Comment:Testing performed by : [address] [phone] Hct 39.7 36.1 - 44.3 % [facility] Comment:Testing performed by : [facility], [address] [place] [phone] Plt 129(L) 140 - 440 K/cumm [facility] Comment:Testing performed by : [address] [phone] MPV 7.6 6.8 - 10.4 fL [facility] Comment:Testing performed by : [address] [address] RBC 4.29 3.90 - 5.00 M/cumm [facility] Comment:Testing performed by : [facility], [address] [place] [phone] MCV 92.5 80.0 - 97.6 fL [facility] Comment:Testing performed by : [facility], [address] [place] [phone] MCH 31.3 26.7 - 33.7 pg [facility] Comment:Testing performed by : [facility], [address] [place] [phone] MCHC 33.9 32.7 - 35.5 g/dL [facility] Comment:Testing performed by : [facility], [address] [place] [phone] RDW CV 13.9 11.8 - 14.6 % [facility] Comment:Testing performed by : [facility], [address] [place] [phone] NRBC abs 0.00 0.00 - 0.01 K/cumm [facility] Comment:Testing performed by : [facility], [address] [place] [phone] Blood specimen (specimen) 07/04/2020 3:30 PM SLITTER SCORER CUT OFF OPERATOR 07/04/2020 3:34 PM SLITTER SCORER CUT OFF OPERATOR Eren Cr MD LAB BLOOD ORDERABLES Final Re sult [facility] [place] [address] * (ABNORMAL) Comprehensive metabolic panel (07/04/2020 3:30 PM SLITTER SCORER CUT OFF OPERATOR) Sodium 141 135 - 145 mmol/L [facility] Comment:Testing performed by : [facility], [address] [place] [phone] Potassium, pl 4.1 3.3 - 4.9 mmol/L [facility] Comment:Testing performed by : [facility], [address] [place] [phone] Chloride 105 97 - 110 mmol/L [facility] Comment:Testing performed by : [facility], [address] [place] [phone] CO2 30 22 - 32 mmol/L [facility] Comment:Testing performed by : [facility], [address] [place] [phone] Anion gap 6 2 - 15 mmol/L [facility] Comment:Testing performed by : [facility], [address] [place] [phone] BUN 15 8 - 25 mg/dL [facility] Comment:Testing performed by : [facility], [address] [place] [phone] Creatinine 1.11(H) 0.60 - 1.10 mg/dL [facility] Comment:Testing performed by : [facility], [address] [place] [phone] Glucose 125 70 - 199 mg/dL [facility] Comment: [...] Testing performed by: [facility], [address] [place] [phone] Calcium 11.0(H) 8.5 - 10.3 mg/dL [facility] Comment:Testing performed by : [facility], [address] [place] [phone] Bilirubin, total 0.4 0.1 - 1.2 mg/dL [facility] Comment:Testing performed by : [facility], [address] [place] [phone] Protein, pl 7.3 6.5 - 8.5 g/dL [facility] Comment:Testing performed by : [facility], [address] [place] [phone] Albumin 4.5 3.5 - 5.0 g/dL [facility] Comment:Testing performed by : [facility], [address] [place] [phone] Alk phos 96 40 - 130 Units/L [facility] Comment:Testing performed by : [facility], [address] [facility] [phone] ALT 20 7 - 45 Units/L [facility] Comment:Testing performed by : [facility], [address] [facility] [address] AST 24 10 - 45 Units/L [facility] Comment:Testing performed by : [facility], [facility] [phone] Blood specimen (specimen) 07/04/2020 3:30 PM SLITTER SCORER CUT OFF OPERATOR 07/04/2020 3:34 PM SLITTER SCORER CUT OFF OPERATOR Eren Cr MD LAB BLOOD ORDERABLES Final Re sult [facility] [place] [address] * (ABNORMAL) Chromogranin A (07/04/2020 3:30 PM SLITTER SCORER CUT OFF OPERATOR) Chromogranin A 340(H) <93 ng/mL [facility] Comment: Impaired renal or hepatic function or treatment with proton pump inhibitors may result in artifactual elevations of Chromogranin A. ADDITIONAL INFORMATION This test was developed and its performance characteristics determined by [facility] in a manner consistent with CLIA requirements. [...] Test Performed by: [facility] [address] [place] [address] Booster Station Operator: Immanuel Novak M.D. 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
--- OUTSIDE RECORDS SUMMARY | 2024-06-25 22:30 | XMS_ITS | Encounter Summary ---
Author Organization [facility] Healthcare Address [address] [place] [address] Care Team Providers Care Hopper Filler Name Role Phone Julio César Briseno MD Primary Care Provider [phone] Eren Cr MD Unavailable [phone] Yohana Bowen MD Unavailable Sabrina Willard NP Unavailable [phone] Reason for Visit * Reason Comments Psychotherapy Encounter Details Date Type Department Care Team (Late st Contact Info) Description 08/22/2020 12:00 PM BREAK UP WORKER Clinical Support [address] 1st [place] [id number] Neeru Nails, PhD [address] [place] [address] Social History Tobacco Use Types Packs/Day Years Used Date Smoking Tobacco: Never Smokeless Tobacco: Never Alcohol Use Standard Drinks/Week Comments Yes 1 (1 standard drink = 0.6 oz pur e alcohol) Comments No Sex and Gender Information Value Date Recorded Sex Assigned at Not on file Legal Sex Female 2:41 PM BREAK UP WORKER Gender Identity Not on file Sexual Orientation Straight 02/19/2021 9: 29 AM CDT Occupation Industry Job Start Date Job End Date retired Not on file Not on file Not on file documented as of this encounter Progress Notes * Neeru Nails, PhD - 08/22/2020 12:00 PM CST [facility] PSYCHOLOG[facility] SERVICE INTEGRATED PSYCHOLOGICAL CARE EVALUATION Patient Name: La Chung : 1950 Date: 08/22/20 Visit Duration: 45 min Brief evaluation with patient was completed via telehealth. Written informed consent for telehealthwas obtained from patient prior to outset of evaluation. Potential risk and benefits of telehealth sessions were discussed with patient. Requirements for telehealth sessions were also covered, including need for private space, limited distractions, no one else present without both parties consent. Back-up plan was made at beginning of session in case of unexpected technology disruptions. Nearest emergency contact identified. 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 No Local Non-Emergency Contact: [facility] [phone] Nearest Emergency Department: [address] [address] Reason for Consultation: Referral Problem: Depressed Mood, Caregiver stress and Coping with her own cancer diagnosis/treatment Referral Source: Medical Oncologist, Sabrina Willard NP History of Problem: Problem History (Duration/Frequency/Intensity): Patient completed real-time video connection (InTouch, Zoom or similar) session alone at her home in [place] while provider was in [place]. There were no interruptions or disruptions in telecommunication. La was uncertain why her medical oncology team referred her. Explained that it is an avenue of support. She was accepting. Notes that she has had anxiety as long as she can remember. She endorsed feeling nervous and on edge, difficulty controlling worry, multiple worries, rumination, difficulty relaxing, and occasional physiological anxiety. She notes that for the most part she can cope with the general day to day anxiety but has more difficulty when situational factors arise (e.g. recent family , scans, etc) that make the day to day harder to cope with as well. Anticipation is hard as well. Her coping strategies are family support, talking it out, and prayer. Her has stomach cancer. However, it is currently in remission and she reports he is doing okay, but it is a worry. Treatment History: Previous counseling in her 30s related to both her miscarriage and fathers suicide when she was 1 years old does take Cymbalta daily. Other Problems of Concern to Patient or Relevant Mental Health History: La's also has cancer (stomach). Mental Status Level of consciousness & Orientation: Alert and oriented to person, place, time Appearance: Dressed casually, appropriately groomed Behavior/Motor: Within normal limits Speech: Within normal limits Mood: Within normal limits Affect Range: Broad Congruency:Mood congruent Concentration: No deficits noted Memory: Intact Thought Process: Linear and coherent Insight: High Judgment: Intact Risk Assessment The patient flatly denied risk of harm to self or others and there was no evidence of such during our meeting. The patient was deemed to be sustainable as an outpatient. Assessment: The patient is a 69 y.o. White female with a significant past medical history of metastatic neuroendocrine tumor of the ilium with most recent scan results showing stable disease per medical oncology documentation. Her social situation is complicated as her also has cancer (stomach). Given that both she and her both have cancer there is significant worry and fatigue regarding their diagnosis and treatment. She meets criteria for generalized anxiety disorder. The diagnosis and treatment options were discussed with her. Diagnosis Generalized Anxiety Disorder Follow-Up Plan & Recommendations 1. Continue care within integrated psychological services. RTC in 1 month per patient preference. She knows she can call sooner should she like to be soon prior to her scheduled appt. 2. Patient will likely benefit from CBT and ACT based interventions to target depressed mood and anxiety, . 3. Outcome and recommendations will be discussed with the referring provider and other relevant oncology team members as needed. K UP WORKER documented in this encounter Plan of Treatment Not on file documented as of this encounter Visit Diagnoses Not on filedocumented in this encounter Care Teams Hopper Filler Relationship Specialty Start Date End Date Julio César Briseno MD PCP - General 10/01/16 Eren Cr MD Referring Physician Medical Oncology 11/25/18 Yohana Bowen MD Radiation Oncologist Radiation Oncology 11/25/18 Sabrina Willard NP [address] [place] [address] Nurse Practitioner Medical Oncology 08/17/20 11/26/21 documented as of this encounter
--- OUTSIDE RECORDS SUMMARY | 2024-06-25 22:30 | XMS_ITS | Encounter Summary ---
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) Procedures [place] OCTREOTIDE INJECTION, DEPOT Octreotide 28 Day Cycles - Carcinoid Eren Cr MD [address] [address] [place] [address] Phone: tel: fax: [address] [address] Phone: tel: fax: Referral ID Status Reason Start Date Expiration Date V isits Requested Visits Authorized [id number] Authorized 11/28/2017 02/05/2025 1 150 Encounter Details Date Type Department Care Team (Late st Contact Info) Description 07/04/2020 4:15 PM RESAW FEEDER Infusion [facility] [address] [facility] 7th [place] [address] Neuroendocrine carcinoma (CMS/HCC) (Primary Dx); Malignant neoplasm [...] on file Legal Sex Female 2:41 PM RESAW FEEDER Gender Identity Not on file Sexual Orientation Straight 02/19/2021 9: 29 AM CDT Occupation Industry Job Start Date Job End Date retired Not on file Not on file Not on file documented as of this encounter Last Filed Vital Signs Vital Sign Reading Time Taken Comments Blood Pressure 120/70 07/04/2020 3:41 PM RESAW FEEDER Pulse 70 07/04/2020 3:41 PM RESAW FEEDER Temperature 36.3 ??C (97.3 ??F) 07/04/2020 3:41 PM CS T Respiratory Rate - - Oxygen Saturation 97% 07/04/2020 3:41 PM RESAW FEEDER Inhaled Oxygen Concentration - - Weight 83.2 kg (183 lb 6.4 oz) 07/04/2020 3:41 P M RESAW FEEDER Height - - Body Mass Index 32.49 06/23/2020 2:55 PM RESAW FEEDER documented in this encounter Nursing Notes * Xochitl Jimenez RN - 07/04/2020 4:15 PM CST Pt received Octreotide IM via L dorsogluteal and xgeva SC via R lower abd, tolerated without incidence. Xochitl Jimenez RN W FEEDER documented in this encounter Plan of Treatment [...] 120 mg 120 mg, subcutaneous, Once, On 07/04/20 at 1645, For 1 dose, Calcium level should be greater than 8 mg/dl Administer injection in upper arm, abdomen or upper thigh Refrigerate. Allow to stand 15 to 30 mins prior to useIndications:Bone metastasis,Neuro-endocrine carcinoma (HCC) Given 07/04/2020 4:35 PM RESAW FEEDER 120 mg Right Lower Abdomen octreotide LAR (SandoSTATIN LAR) extended release intramuscular injection 30 mg 30 mg, intramuscular, Once, On 07/04/20 at 1715, For 1 dose, Refrigerate. For IM intragluteal administration only- alternate gluteal sites. Shake.Indications:Malignan t neoplasm metastatic to liver (HCC),Neuroendocrine carcinoma (HCC) Given 07/04/2020 4:40 PM RESAW FEEDER 30 mg Left Dorsogluteal/Butto ck documented in this encounter Orders Nursing Count Last Ordered Date First Orde red Date ONCBCN NURSING COMMUNICATION [id number] 1 07/04 ONCBCN NURSING COMMUNICATION [id number] 1 1 09/04/2019 Appointment Requests Count Last Ordered Date Fi rst Ordered Date ONCBCN INJECTION APPOINTMENT REQUEST 1 06/08 documented in this encounter Care Teams Cut Lace Machine Operator Relationship Specialty Start Date End Date Julio César Briseno MD PCP - General 10/01/16 Eren Cr MD Referring Physician Medical Oncology 11/25/18 Yohana Bowen MD Radiation Oncologist Radiation Oncology 11/25/18 documented as of this encounter
--- OUTSIDE RECORDS SUMMARY | 2024-06-25 22:30 | XMS_ITS | Encounter Summary ---
Author Organization [facility] Address [address] [place] [address] Phone Care Team Providers Care Senior Oracle Dba Name Role Phone Julio César Briseno MD Primary Care Provider Eren Cr MD Unavailable [phone] Yohana Bowen MD Unavailable Encounter Details Date Type Department Care Team (Late st Contact Info) Description 07/28/2020 Orders Only [facility] Oncology [address] [facility] 7th [place] [address] [place] [address] Eren Cr MD [address] [facility] [address] [place], [place] [id number] 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); Neuroendocrine carcinoma (CMS/HCC) Social History Tobacco Use Types Packs/Day Years Used Date Smoking Tobacco: Never Smokeless Tobacco: Never Alcohol Use Standard Drinks/Week Comments Yes 1 (1 standard drink = 0.6 oz pur e alcohol) Comments No Sex and Gender Information Value Date Recorded Sex Assigned at Not on file Legal Sex Female 2:41 PM ASSISTANT PROFESSOR IN FAMILY STUDIES Gender Identity Not on file Sexual Orientation Straight 02/19/2021 9: 29 AM CDT Occupation Industry Job Start Date Job End Date retired Not on file Not on file Not on file documented as of this encounter Plan of Treatment Not on file documented as of this encounter Results * (ABNORMAL) Chromogranin A (08/15/2020 2:23 PM ASSISTANT PROFESSOR IN FAMILY STUDIES) Chromogranin A 389(H) <93 ng/mL JASON LEAVITT Comment: Impaired renal or hepatic function or treatment with proton pump inhibitors may result in artifactual elevations of Chromogranin A. ADDITIONAL INFORMATION This test was developed and its performance characteristics determined by [facility] in a manner consistent with CLIA requirements. [...] absence of malignant disease. Test Performed by: [place] [address] Event Staff: Immanuel Novak M.D. Ph.D.; CLIA# [id number] Blood specimen (specimen) 08/15/2020 2:23 PM ASSISTANT PROFESSOR IN FAMILY STUDIES 08/15/2020 5:59 PM ASSISTANT PROFESSOR IN FAMILY STUDIES Eren Cr MD LAB BLOOD ORDERABLES Final Re sult JASON BLACK [facility] Department [place] [address] * Comprehensive metabolic panel (08/15/2020 2:23 PM ASSISTANT PROFESSOR IN FAMILY STUDIES) Pathologist [facility] Sodium 138 135 - 145 mmol/L JSAON LEAVITT Comment:Testing performed by : [facility], [address] [place] [address] Potassium, pl 4.5 3.3 - 4.9 mmol/L JASON BLACK Comment:Testing performed by : [facility], [address] [place] [address] Chloride 104 97 - 110 mmol/L CERNER BJ Comment:Testing performed by : [facility], [address] [place] [phone] CO2 30 22 - 32 mmol/L CERNER BJ Comment:Testing performed by : [facility], [address] [place] [address] Anion gap 4 2 - 15 mmol/L CERNER BJ Comment:Testing performed by : [facility], [address] [place] [address] BUN 15 8 - 25 mg/dL CERNER BJ Comment:Testing performed by : [facility], [address] [place] [phone] Creatinine 0.97 0.60 - 1.10 mg/dL CERNER BJ Comment:Testing performed by : [facility], [address] [place] [address] Glucose 108 70 - 199 mg/dL CERNER BJ Comment: [...] last revised 2017. Testing performed by: [facility], [address] [place] [address] Calcium 10.2 8.5 - 10.3 mg/dL CERNER BJ Comment:Testing performed by : [facility], [address] [place] [address] Bilirubin, total 0.4 0.1 - 1.2 mg/dL CERNER BJ Comment:Testing performed by : [facility], [address] [place] [address] Protein, pl 6.6 6.5 - 8.5 g/dL CERNER BJH Comment:Testing performed by : [facility], [address] [place] [address] Albumin 4.0 3.5 - 5.0 g/dL JASON [facility] Comment:Testing performed by : [facility], [address] [place] [address] Alk phos 83 40 - 130 Units/L JASON BLACK Comment:Testing performed by : [facility], [address] [place] [phone] ALT 18 7 - 45 Units/L JASON BLACK Comment:Testing performed by : [facility], [address] [place] [address] AST 21 10 - 45 Units/L JASON [facility] Comment:Testing performed by : [facility], [address] [place] [phone] Blood specimen (specimen) 08/15/2020 2:23 PM ASSISTANT PROFESSOR IN FAMILY STUDIES 08/15/2020 2:28 PM ASSISTANT PROFESSOR IN FAMILY STUDIES us Eren Cr MD LAB BLOOD ORDERABLES Final Re sult [facility] Department [place] [address] * (ABNORMAL) CBC with auto differential (08/15/2020 2:23 PM ASSISTANT PROFESSOR IN FAMILY STUDIES) WBC 4.7 3.8 - 9.8 K/cumm JASON [facility] Comment:Testing performed by : [facility], [address] [place] [address] Hgb 12.9 12.1 - 15.1 g/dL JASON BLACK Comment:Testing performed by : [facility], [address] [place] [phone] Hct 37.7 36.1 - 44.3 % JASON BLACK Comment:Testing performed by : [facility], [address] [place] [phone] Plt 126(L) 140 - 440 K/cumm JASON BLACK Comment:Testing performed by : [facility], [address] [place] [phone] MPV 7.3 6.8 - 10.4 fL JASON BLACK Comment:Testing performed by : [facility], [address] [place] [address] RBC 4.11 3.90 - 5.00 M/cumm JASON [facility] Comment:Testing performed by : [facility], [address] [place], [place] [phone] MCV 91.8 80.0 - 97.6 fL JASON BLACK Comment:Testing performed by : [address] [address] MCH 31.4 26.7 - 33.7 pg JASON [facility] Comment:Testing performed by : [facility], [address] [place] [address] MCHC 34.2 32.7 - 35.5 g/dL JASON BLACK Comment:Testing performed by : [facility], [address] [place] [phone] RDW CV 13.8 11.8 - 14.6 % JASON [facility] Comment:Testing performed by : [facility], [address] [place] [address] NRBC abs 0.01 0.00 - 0.01 K/cumm JASON [facility] Comment:Testing performed by : [facility], [address] [place] [phone] Blood specimen (specimen) 08/15/2020 2:23 PM ASSISTANT PROFESSOR IN FAMILY STUDIES 08/15/2020 2:28 PM ASSISTANT PROFESSOR IN FAMILY STUDIES us Eren Cr MD LAB BLOOD ORDERABLES Final Re sult Performing Organization Address City/State/[facility] Co de Phone Number [facility] [place] [address] documented in this encounter Visit Diagnoses Diagnosis Malignant neoplasm metastatic to liver (HCC)- Primary Neuroendocrine carcinoma (HCC) Other malignant neoplasm of unspecified site documented in this encounter Orders Appointment Requests Count Last Ordered Date Fi rst Ordered Date ONCBCN CLINIC APPOINTMENT REQUEST 1 021 ONCBCN INJECTION APPOINTMENT REQUEST 1 02/2021 ONCBCN LAB APPOINTMENT 1 08/15/2020 documented in this encounter Care Teams Senior Oracle Dba Relationship Specialty Start Date End Date Julio César Briseno MD PCP - General 10/01/16 Eren Cr MD Referring Physician Medical Oncology 11/25/18 Yohana Bowen MD Radiation Oncologist Radiation Oncology 11/25/18 documented as of this encounter
--- OUTSIDE RECORDS SUMMARY | 2024-06-25 22:30 | XMS_ITS | Encounter Summary ---
Author Organization [facility] Healthcare Address [address] [place] [address] Care Team Providers Care Product Marketing Analyst Name Role Phone Julio César Briseno MD Primary Care Provider [phone] Eren Cr MD Unavailable [phone] Yohana Bowen MD Unavailable Reason for Referral * MRI/CAT/PET Scan (Routine) - Closed Specialty Diagnoses / Procedures Referred By Contac Referred To Contact Radiology Diagnoses 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) Procedures CT head with contrast Eren Cr MD [address] [place] [address] Phone: tel: fax: [facility] [address] [place] [address] Referral ID Status Reason Start Date Expiration Date Visits Re quested Visits Authorized [id number] Closed 08/15/2020 09/14/2021 1 1 TELLER Reason for Visit * MRI/CAT/PET Scan (Routine) - Closed Specialty Diagnoses / Procedures Referred By Contac t Referred To Contact Radiology Diagnoses 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) Procedures CT head with contrast Eren Cr MD [address] [facility] [address] [place] [address] Phone: tel: fax: [facility] [address] [facility] [place] [address] Referral ID Status Reason Start Date Expiration Date Visits Re quested Visits Authorized [id number] Closed 08/15/2020 09/14/2021 1 1 Encounter Details Date Type Department Care Team (Latest Contact Info) Description 08/15/2020 5:00 PM LEAD TELLER - 08/15/2020 11:59 PM LEAD TELLER Hospital Encounter [facility] Radiology [facility] [address] [place] [address] Eren Cr MD [address] [facility] [address] [place] [address] Bone metastasis (CMS/HCC); Neuroendocrine carcinoma (CMS/HCC); Malignant [...] file Legal Sex Female 2:41 PM LEAD TELLER Gender Identity Not on file Sexual Orientation [...] capsuleIndications :supplement Take 1 tablet by mouth career guidance technician before breakfast 07/04/2016 4 cholecalciferol (VITAMIN D-3) 2,000 unit capsule Take 1 capsule (2,000 Units total) by mouth daily 30 capsule 2 04/25/2019 3 cholestyramine (QUESTRAN) 4 gram packet Take 1 packet by mouth 3 (three) times a day with meals 270 packet 3 09/04/2019 2 clotrimazole-betam ethasone (LOTRISONE) cream Apply 1 Application topically daily as needed (rash) 4 coenzyme Q09-yhwleom E 100-5 mg-unit capsuleIndications :supplement Take 1 tablet by mouth career guidance technician before breakfast 4 denosumab (XGEVA) 120 mg/1.7 [...] (three) times a day 90 tablet 11 11/16/2019 1 montelukast (SINGULAIR) 10 mg tablet Take [...] Name Priority Date/Time Associated Diagnosis Comments CT HEAD W CONTRAST Schedule Routine, Read Routine (OP Routine) 08/15/2020 6:11 PM LEAD TELLER Bone metastasis (CMS/HCC) Neuroendocrine carcinoma (CMS/HCC) Malignant neoplasm metastatic to liver (CMS/HCC) documented in this encounter Results * CT head with contrast (08/15/2020 6:11 PM LEAD TELLER) Anatomical Region Laterality Modality Head and Neck N/A Computed Tomogra phy 08/15/2020 7:39 PM LEAD TELLER Impressions 08/15/2020 10:32 PM LEAD TELLER 1. No acute intracranial abnormality on this contrast enhanced CT of the head. 2. No CT evidence of intracranial malignancy. Dictated by: Edwin Darnell M.D. The radiology attending physician has personally reviewed this study, and had reviewed and/or edited this written report and agrees with it. Electronically signed by: Benja Heaton M.D. Narrative 08/15/2020 10:32 PM LEAD TELLER EXAMINATION: Head CT with contrast HISTORY: 69-year-old [...] by: Benja Heaton M.D. Eren Cr MD IMG CT PROCEDURES [...] Rate Site ioversoL (OPTIRAY 350) syringe syringe 75 mL 75 mL, intravenous, Once in imaging, contrast, Starting on 08/15/20 at 1801, For 1 dose Given 08/15/2020 6:02 PM LEAD TELLER 75 mL documented in this encounter Orders Medications Ordered That Brett ht Not Have Been Administered Count Last Ordered Date First Ordered Date ioversoL (OPTIRAY 350) syrin ge syringe 75 mL 2 08/15/2020 documented in this encounter Care Teams Product Marketing Analyst Relationship Specialty Start Date End Date Julio César Briseno MD PCP - General 10/01/16 Eren Cr MD Referring Physician Medical Oncology 11/25/18 Yohana Bwoen MD Radiation Oncologist Radiation Oncology 11/25/18 documented as of this encounter
--- OUTSIDE RECORDS SUMMARY | 2024-06-25 22:30 | XMS_ITS | Encounter Summary ---
Author Organization [facility] Address [address] [place] [address] Phone Care Team Providers Care Citrix Administrator Name Role Phone Julio César Briseno MD Primary Care Provider [phone] Eren Cr MD Unavailable [phone] Yohana Bowen MD Unavailable Reason for Visit * Episode Based Medications (Routine) - Authorized Specialty Diagnoses / Procedures Referred By Evelyne t Referred To Contact Oncology Diagnoses Neuroendocrine carcinoma (HCC) Malignant neoplasm metastatic to liver (HCC) Procedures GA OCTREOTIDE INJECTION, DEPOT Octreotide 28 Day Cycles - Carcinoid Eren Cr MD [address] [facility] [address] [place] [address] Phone: tel: fax: [facility] [address] [address] Phone: tel: fax: Referral ID Status Reason Start Date Expiration Date V isits Requested Visits Authorized [id number] Authorized 11/28/2017 02/05/2025 1 150 Encounter Details Date Type Department Care Team (Late st Contact Info) Description 08/15/2020 2:00 PM OPTICAL MECHANIC APPRENTICE Lab [facility] Oncology [address] [place] [address] [place] [address] Neuroendocrine carcinoma (CMS/HCC); Malignant neoplasm [...] file Legal Sex Female 2:41 PM OPTICAL MECHANIC APPRENTICE Gender Identity Not on file Sexual Orientation Straight 02/19/2021 9: 29 AM CDT Occupation Industry Job Start Date Job End Date retired Not on file Not on file Not on file documented as of this encounter Plan of Treatment Not on file documented as of this encounter Procedures Procedure Name Priority Date/Time Associated Diagnosis Comments DIFFERENTIAL AUTO Routine 08/15/2020 2:2 3 PM OPTICAL MECHANIC APPRENTICE Neuroendocrine carcinoma (CMS/HCC) Malignant neoplasm metastatic to liver (CMS/HCC) CHROMOGRANIN A Routine 08/15/2020 2:23 PM OPTICAL MECHANIC APPRENTICE Neuroendocrine carcinoma (CMS/HCC) Malignant neoplasm metastatic to liver (CMS/HCC) CBC WITH AUTO DIFFERENTIAL Routine 08/15/2020 2:23 PM OPTICAL MECHANIC APPRENTICE Neuroendocrine carcinoma (CMS/HCC) Malignant neoplasm metastatic to liver (CMS/HCC) PHOSPHORUS STAT 08/15/2020 2:23 PM OPTICAL MECHANIC APPRENTICE Bone metastasis (CMS/HCC) Neuroendocrine carcinoma (CMS/HCC) COMPREHENSIVE METABOLIC PANEL STAT 08/15/2020 2:23 PM OPTICAL MECHANIC APPRENTICE Neuroendocrine carcinoma (CMS/HCC) Malignant neoplasm metastatic to liver (CMS/HCC) documented in this encounter Results * (ABNORMAL) Differential, auto (08/15/2020 2:23 PM OPTICAL MECHANIC APPRENTICE) Neutrophil abs 3.6 1.8 - 6.6 K/cumm [facility] Comment:Testing performed by : [facility], [address] [place] [phone] Lymphocyte abs 0.4(L) 1.2 - 3.3 K/cumm [facility] Comment:Testing performed by : [facility], [address] [place] [phone] Monocyte abs 0.7 0.2 - 1.2 K/cumm [facility] Comment:Testing performed by : [facility], [address] [place] [phone] Eosinophil abs 0.1 0.0 - 0.5 K/cumm [facility] Comment:Testing performed by : [facility], [address] [place] [phone] Basophil abs 0.0 0.0 - 0.2 K/cumm [facility] Comment:Testing performed by : [facility], [address] [place] [phone] Neutrophil pct 75.3 % [facility] Comment: Interpretive Data Percent cell count reference ranges are not reported, since discordance with absolute values may lead to misinterpretation of CBC data. Current Interpretive Data was last revised on 2017. Testing performed by: [facility], [address] [place] [phone] Lymphocyte pct 8.0 % [facility] Comment: Interpretive Data Percent cell count reference ranges are not reported, since discordance with absolute values may lead to misinterpretation of CBC data. Current Interpretive Data was last revised on 2017. Testing performed by: [facility], [address] [place] [phone] Monocyte pct 14.6 % [facility] Comment:Testing performed by : [facility], [address] [place] [phone] Eosinophil pct 1.8 % [facility] Comment:Testing performed by : [facility], [address] [place] [phone] Basophil pct 0.3 % [facility] Comment:Testing performed by : [facility], [address] [place] [phone] Blood specimen (specimen) 08/15/2020 2:23 PM OPTICAL MECHANIC APPRENTICE 08/15/2020 2:28 PM OPTICAL MECHANIC APPRENTICE Eren Cr MD LAB BLOOD ORDERABLES Final Re sult Performing Organization Address [facility] Co de Phone Number [facility] [place] [address] * Phosphorus (08/15/2020 2:23 PM OPTICAL MECHANIC APPRENTICE) Pathologist [facility] Phosphorus, pl 2.5 2.3 - 4.5 mg/dL [facility] Comment:Testing performed by : [facility], [address] [place] [phone] Blood specimen (specimen) 08/15/2020 2:23 PM OPTICAL MECHANIC APPRENTICE 08/15/2020 2:28 PM OPTICAL MECHANIC APPRENTICE Eren Cr MD LAB BLOOD ORDERABLES Final Re sult Performing Organization Address [facility] Co de Phone Number [facility] [place] [address] * (ABNORMAL) CBC with auto differential (08/15/2020 2:23 PM OPTICAL MECHANIC APPRENTICE) [facility] WBC 4.7 3.8 - 9.8 K/cumm [facility] Comment:Testing performed by : [facility], [address] [place] [phone] Hgb 12.9 12.1 - 15.1 g/dL [facility] Comment:Testing performed by : [address] [phone] Hct 37.7 36.1 - 44.3 % [facility] Comment:Testing performed by : [facility], [address] [place] [phone] Plt 126(L) 140 - 440 K/cumm [facility] Comment:Testing performed by : [address] [phone] MPV 7.3 6.8 - 10.4 fL [facility] Comment:Testing performed by : [address] [phone] RBC 4.11 3.90 - 5.00 M/cumm [facility] Comment:Testing performed by : [facility], [address] [place] [phone] MCV 91.8 80.0 - 97.6 fL [facility] Comment:Testing performed by : [facility], [address] [place] [phone] MCH 31.4 26.7 - 33.7 pg [facility] Comment:Testing performed by : [facility], [address] [place] [phone] MCHC 34.2 32.7 - 35.5 g/dL [facility] Comment:Testing performed by : [facility], [address] [place] [phone] RDW CV 13.8 11.8 - 14.6 % [facility] Comment:Testing performed by : [facility], [address] [place] [phone] NRBC abs 0.01 0.00 - 0.01 K/cumm [facility] Comment:Testing performed by : [facility], [address] [place] [phone] Blood specimen (specimen) 08/15/2020 2:23 PM OPTICAL MECHANIC APPRENTICE 08/15/2020 2:28 PM OPTICAL MECHANIC APPRENTICE Eren Cr MD LAB BLOOD ORDERABLES Final Re sult [facility] Department [place] [address] * Comprehensive metabolic panel (08/15/2020 2:23 PM OPTICAL MECHANIC APPRENTICE) Sodium 138 135 - 145 mmol/L [facility] Comment:Testing performed by : [facility], [address] [place] [phone] Potassium, pl 4.5 3.3 - 4.9 mmol/L [facility] Comment:Testing performed by : [facility], [address] [place] [phone] Chloride 104 97 - 110 mmol/L [facility] Comment:Testing performed by : [facility], [address] [place] [phone] CO2 30 22 - 32 mmol/L [facility] Comment:Testing performed by : [facility], [address] [place] [phone] Anion gap 4 2 - 15 mmol/L [facility] Comment:Testing performed by : [facility], [address] [place] [phone] BUN 15 8 - 25 mg/dL [facility] Comment:Testing performed by : [facility], [address] [place] [phone] Creatinine 0.97 0.60 - 1.10 mg/dL [facility] Comment:Testing performed by : [facility], [address] [place] [phone] Glucose 108 70 - 199 mg/dL [facility] Comment: Interpretive Data Fasting glucose >/= [...] was last revised 2017. Testing performed by: [facility], [address] [place] [phone] Calcium 10.2 8.5 - 10.3 mg/dL [facility] Comment:Testing performed by : [facility], [address] [place] [phone] Bilirubin, total 0.4 0.1 - 1.2 mg/dL [facility] Comment:Testing performed by : [facility], [address] [place] [phone] Protein, pl 6.6 6.5 - 8.5 g/dL [facility] Comment:Testing performed by : [facility], [address] [place] [phone] Albumin 4.0 3.5 - 5.0 g/dL [facility] Comment:Testing performed by : [facility], [address] [place] [phone] Alk phos 83 40 - 130 Units/L [facility] Comment:Testing performed by : [facility], [address] [facility] [phone] ALT 18 7 - 45 Units/L [facility] Comment:Testing performed by : [facility], [address] [facility] [address] AST 21 10 - 45 Units/L [facility] Comment:Testing performed by : [facility], [facility] [phone] Blood specimen (specimen) 08/15/2020 2:23 PM OPTICAL MECHANIC APPRENTICE 08/15/2020 2:28 PM OPTICAL MECHANIC APPRENTICE Eren Cr MD LAB BLOOD ORDERABLES Final Re sult [facility] Department [place] [address] * (ABNORMAL) Chromogranin A (08/15/2020 2:23 PM OPTICAL MECHANIC APPRENTICE) Chromogranin A 389(H) <93 ng/mL [facility] Comment: Impaired renal or hepatic function or treatment with proton pump inhibitors may result in artifactual elevations of Chromogranin A. ADDITIONAL INFORMATION This test was developed and its performance characteristics determined by [facility] in a manner consistent with CLIA [...] absence of malignant disease. Test Performed by: [facility] [address] [place] [address] Hydrogenation Still Operator: Immanuel Novak M.D. 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
--- OUTSIDE RECORDS SUMMARY | 2024-06-25 22:30 | XMS_ITS | Encounter Summary ---
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) Procedures RI OCTREOTIDE INJECTION, DEPOT Octreotide 28 Day Cycles - Carcinoid Eren Cr MD [address] [facility] [address] [place] [address] Phone: tel: fax: [facility] [address] [address] Phone: tel: fax: Referral ID Status Reason Start Date Expiration Date V isits Requested Visits Authorized [id number] Authorized 11/28/2017 02/05/2025 1 150 Encounter Details Date Type Department Care Team (Late st Contact Info) Description 10/10/2020 3:45 PM CDT Lab [facility] Oncology [address] [place] [address] 7th [place] [address] Neuroendocrine carcinoma (CMS/HCC); Malignant neoplasm metastatic to liver (CMS/HCC) Social History Tobacco Use Types Packs/Day Years Used Date Smoking Tobacco: Never Smokeless Tobacco: Never Alcohol Use Standard Drinks/Week Comments Yes 1 (1 standard drink = 0.6 oz pur e alcohol) Comments No Sex and Gender Information Value Date Recorded Sex Assigned at Not on file Legal Sex Female 2:41 PM [employer] Gender Identity Not on file Sexual Orientation Straight 02/19/2021 9: 29 AM CDT Occupation Industry Job Start Date Job End Date retired Not on file Not on file Not on file documented as of this encounter Plan of Treatment Not on file documented as of this encounter Procedures Procedure Name Priority Date/Time Associated Diagnosis Comments DIFFERENTIAL AUTO Routine 10/10/2020 4:0 2 PM CDT Neuroendocrine carcinoma (CMS/HCC) Malignant neoplasm metastatic to liver (CMS/HCC) CHROMOGRANIN A Routine 10/10/2020 4:02 PM CDT Neuroendocrine carcinoma (CMS/HCC) Malignant neoplasm metastatic to liver (CMS/HCC) CBC WITH AUTO DIFFERENTIAL Routine 10/10/2020 4:02 PM CDT Neuroendocrine carcinoma (CMS/HCC) Malignant neoplasm metastatic to liver (CMS/HCC) COMPREHENSIVE METABOLIC PANEL STAT 10/10/2020 4:02 PM CDT Neuroendocrine carcinoma (CMS/HCC) Malignant neoplasm metastatic to liver (CMS/HCC) documented in this encounter Results * (ABNORMAL) Differential, auto (10/10/2020 4:02 PM CDT) Neutrophil abs 3.2 1.8 - 6.6 K/cumm [facility] Comment:Testing performed by : [facility], [address] [place] [phone] Lymphocyte abs 0.5(L) 1.2 - 3.3 K/cumm [facility] Comment:Testing performed by : [facility], [address] [place] [phone] Monocyte abs 0.7 0.2 - 1.2 K/cumm [facility] Comment:Testing performed by : [facility], [address] [place] [phone] Eosinophil abs 0.1 0.0 - 0.5 K/cumm [facility] Comment:Testing performed by : [facility], [address] [place] [phone] Basophil abs 0.0 0.0 - 0.2 K/cumm [facility] Comment:Testing performed by : [facility], [address] [place] [phone] Neutrophil pct 70.9 % [facility] Comment: Interpretive Data Percent cell count reference ranges are not reported, since discordance with absolute values may lead to misinterpretation of CBC data. Current Interpretive Data was last revised on 2017. Testing performed by: [facility], [address] [place] [phone] Lymphocyte pct 11.1 % [facility] Comment: Interpretive Data Percent cell count reference ranges are not reported, since discordance with absolute values may lead to misinterpretation of CBC data. Current Interpretive Data was last revised on 2017. Testing performed by: [facility], [address] [place] [phone] Monocyte pct 14.4 % [facility] Comment:Testing performed by : [facility], [address] [place] [phone] Eosinophil pct 2.9 % [facility] Comment:Testing performed by : [facility], [address] [place] [phone] Basophil pct 0.7 % [facility] Comment:Testing performed by : [facility], [address] [place] [phone] Blood specimen (specimen) 10/10/2020 4:02 PM CDT 10/10/2020 4:05 PM CDT us Eren Cr MD LAB BLOOD ORDERABLES Final Re sult [facility] Department [place] [address] * (ABNORMAL) CBC with auto differential (10/10/2020 4:02 PM CDT) WBC 4.5 3.8 - 9.8 K/cumm [facility] Comment:Testing performed by : [facility], [address] [place] [phone] Hgb 13.0 12.1 - 15.1 g/dL [facility] Comment:Testing performed by : [facility], [address] [place] [phone] Hct 38.0 36.1 - 44.3 % [facility] Comment:Testing performed by : [place] [phone] Plt 130(L) 140 - 440 K/cumm [facility] Comment:Testing performed by : [address] [phone] MPV 7.3 6.8 - 10.4 fL [facility] Comment:Testing performed by : [place] [id number] RBC 4.11 3.90 - 5.00 M/cumm [facility] Comment:Testing performed by : [place] [phone] MCV 92.3 80.0 - 97.6 fL [facility] Comment:Testing performed by : [address] [phone] MCH 31.6 26.7 - 33.7 pg [facility] Comment:Testing performed by : [address] [phone] MCHC 34.2 32.7 - 35.5 g/dL [facility] Comment:Testing performed by : [address] [phone] RDW CV 13.5 11.8 - 14.6 % [facility] Comment:Testing performed by : [address] [address] NRBC abs 0.00 0.00 - 0.01 K/cumm [facility] Comment:Testing performed by : [facility], [address] [place] [phone] Blood specimen (specimen) 10/10/2020 4:02 PM CDT 10/10/2020 4:05 PM CDT us Eren Cr MD LAB BLOOD ORDERABLES Final Re sult [facility] Department [place] [address] * (ABNORMAL) Chromogranin A (10/10/2020 4:02 PM CDT) Chromogranin A 468(H) <93 ng/mL [facility] Comment: Impaired renal or hepatic function or treatment with proton pump inhibitors may result in artifactual elevations of Chromogranin A. ADDITIONAL INFORMATION This test was developed and its performance characteristics determined by [facility] in a manner consistent with CLIA requirements. This test has not been cleared or approved by the U.S. Food and Drug Administration. The testing method is a homogeneous time-resolved immunofluorescent assay manufactured by [employer] and performed on the [employer] Kryptor Compact Plus. ? Values obtained with different assay methods or kits may be different and cannot be used interchangeably. ? Test results cannot be interpreted as absolute evidence for the presence or absence of malignant disease. Test Performed by: [facility] [place] [address] [place] [address] Lace Tearing Supervisor: Immanuel Novak M.D. Ph.D.; CLIA# [id number] Blood specimen (specimen) 10/10/2020 4:02 PM CDT 10/10/2020 4:45 PM CDT us Eren Cr MD LAB BLOOD ORDERABLES Final Re sult [facility] Department [place] [address] * (ABNORMAL) Comprehensive metabolic panel (10/10/2020 4:02 PM CDT) Sodium 140 135 - 145 mmol/L [facility] Comment:Testing performed by : [facility], [address] [place] [phone] Potassium, pl 4.2 3.3 - 4.9 mmol/L [facility] Comment:Testing performed by : [facility], [address] [place] [phone] Chloride 102 97 - 110 mmol/L [facility] Comment:Testing performed by : [facility], [address] [place] [phone] CO2 31 22 - 32 mmol/L [facility] Comment:Testing performed by : [facility], [address] [place] [phone] Anion gap 7 2 - 15 mmol/L [facility] Comment:Testing performed by : [facility], [address] [place] [phone] BUN 15 8 - 25 mg/dL [facility] Comment:Testing performed by : [facility], [address] [place] [phone] Creatinine 1.03 0.60 - 1.10 mg/dL [facility] Comment:Testing performed by : [address] [phone] Glucose 122 70 - 199 mg/dL [facility] Comment: Interpretive Data Fasting glucose [...] revised 2017. Testing performed by: [facility], [address] [place] [phone] Calcium 11.0(H) 8.5 - 10.3 mg/dL [facility] Comment:Testing performed by : [facility], [address] [place] [phone] Bilirubin, total 0.4 0.1 - 1.2 mg/dL [facility] Comment:Testing performed by : [facility], [address] [place] [phone] Protein, pl 7.3 6.5 - 8.5 g/dL [facility] Comment:Testing performed by : [facility], [address] [place] [phone] Albumin 4.5 3.5 - 5.0 g/dL [facility] Comment:Testing performed by : [facility], [address] [place] [phone] Alk phos 83 40 - 130 Units/L [facility]:Testing performed by : [facility], [address] [place] [phone] ALT 17 7 - 45 Units/L [facility] Comment:Testing performed by : [facility], [address] [place] [phone] AST 22 10 - 45 Units/L [facility] Comment:Testing performed by : [facility], [address] [place] [phone] Blood specimen (specimen) 10/10/2020 4:02 PM CDT 10/10/2020 4:05 PM CDT Eren Cr MD LAB BLOOD ORDERABLES Final Re sult [facility] [place] [address] documented in this encounter Visit Diagnoses Diagnosis Neuroendocrine carcinoma (HCC) Other malignant neoplasm of unspecified site 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
--- OUTSIDE RECORDS SUMMARY | 2024-06-25 22:30 | XMS_ITS | Encounter Summary ---
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) Procedures [place] OCTREOTIDE INJECTION, DEPOT Octreotide 28 Day Cycles - Carcinoid Eren Cr MD [address] [facility] [address] [place] [address] Phone: tel: fax: [facility] [address] [address] Phone: tel: fax: Referral ID Status Reason Start Date Expiration Date V isits Requested Visits Authorized [id number] Authorized 11/28/2017 02/05/2025 1 150 Encounter Details Date Type Department Care Team (Late st Contact Info) Description 09/12/2020 4:[address] INTERPRETER Infusion [facility] Oncology [address] [facility] 7th [place] [address] Neuroendocrine carcinoma (CMS/HCC) (Primary Dx); Malignant neoplasm [...] on file Legal Sex Female 2:[address] INTERPRETER Gender Identity Not on file Sexual Orientation Straight 02/19/2021 9: 29 AM CDT Occupation Industry Job Start Date Job End Date retired Not on file Not on file Not on file documented as of this encounter Last Filed Vital Signs Vital Sign Reading Time Taken Comments Blood Pressure 158/72 09/12/2020 4:[address] INTERPRETER Pulse 112 09/12/2020 4:[address] INTERPRETER Temperature 36.3 ??C (97.3 ??F) 09/12/2020 4:14 PM CS T Respiratory Rate 18 09/12/2020 4:[address] INTERPRETER Oxygen Saturation 96% 09/12/2020 4:[address] INTERPRETER Inhaled Oxygen Concentration - - Weight 85.1 kg (187 lb 9.6 oz) 09/12/2020 4:[address] INTERPRETER Height - - Body Mass Index 33.23 06/23/2020 2:[address] INTERPRETER documented in this encounter Nursing Notes * Ashley Jennings RN - 09/12/2020 4:15 PM CST Patient tolerated both injections well. Patient has appointments and left ambulatory with appointments. CIAL COURT INTERPRETER documented in this encounter Plan of Treatment [...] 120 mg 120 mg, subcutaneous, Once, On 09/12/20 at 1715, For 1 dose, Calcium level should be greater than 8 mg/dl Administer injection in upper arm, abdomen or upper thigh Refrigerate. Allow to stand 15 to 30 mins prior to useIndications:Bone metastasis,Neuro-endocrine carcinoma (HCC) Given 09/12/2020 4:[address] INTERPRETER 120 mg Right Lower Abdomen octreotide LAR (SandoSTATIN LAR) extended release intramuscular injection 30 mg 30 mg, intramuscular, Once, On 09/12/20 at 1715, For 1 dose, Refrigerate. For IM intragluteal administration only- alternate gluteal sites. Shake.Indications:Malignan t neoplasm metastatic to liver (HCC),Neuroendocrine carcinoma (HCC) Given 09/12/2020 4:[address] INTERPRETER 30 mg Left Dorsogluteal/Butto ck documented in this encounter Orders Nursing Count Last Ordered Date First Orde red Date ONCBCN NURSING COMMUNICATION [id number] 09/12 ONCBCN NURSING COMMUNICATION [id number] 1 0 09/12/2020 PHYSICIAN COMMUNICATION ORDER 1 09/12/2020 Appointment Requests Count Last Ordered Date Fi rst Ordered Date ONCBCN INJECTION APPOINTMENT REQUEST 1 02/2021 documented in this encounter Care Teams Pharm Tech Relationship Specialty Start Date End Date Julio César Briseno MD PCP - General 10/01/16 Eren Cr MD Referring Physician Medical Oncology 11/25/18 Yohana Bowen MD Radiation Oncologist Radiation Oncology 11/25/18 Sabrina Willard NP [address] [place] [address] Nurse Practitioner Medical Oncology 08/17/20 11/26/21 documented as of this encounter
--- OUTSIDE RECORDS SUMMARY | 2024-06-25 22:30 | XMS_ITS | Encounter Summary ---
Author Organization [facility] Address [address] [place] [address] Care Team Providers Care Weft Straightener Name Role Phone Julio César Briseno MD Primary Care Provider [phone] Eren Cr MD Unavailable [phone] Yohana Bowen MD Unavailable Reason for Visit * Reason Comments Follow-up Telehealth Encounter Details Date Type Department Care Team (Late st Contact Info) Description 08/03/2020 10:30 AM COMMODITY INDUSTRY ANALYST Telemedicine [facility] Radiation Oncology [address] [place] [address] [place] [address] Yohana Bowen MD [facility] [address] [place], [place] [id number] Malignant neoplasm metastatic to liver (CMS/HCC); Neuro-endocrine carcinoma (CMS/HCC); Neuroendocrine carcinoma (CMS/HCC) Social History Tobacco Use Types Packs/Day Years Used Date Smoking Tobacco: Never Smokeless Tobacco: Never Alcohol Use Standard Drinks/Week Comments Yes 1 (1 standard drink = 0.6 oz pur e alcohol) Comments No Sex and Gender Information Value Date Recorded Sex Assigned at Not on file Legal Sex Female 2:41 PM COMMODITY INDUSTRY ANALYST Gender Identity Not on file Sexual Orientation Straight 02/19/2021 9: 29 AM CDT Occupation Industry Job Start Date Job End Date retired Not on file Not on file Not on file documented as of this encounter Progress Notes * Yohana Bowen MD - 08/03/2020 10:30 AM CST RADIATION ONCOLOGY FOLLOW-UP NOTE NAME: La Chung : 1950 ATTENDING PHYSICIAN: Yohana Bowen MD REFERRING PHYSICIAN: Eren Cr MD DATE OF SERVICE: 08/03/2020 DIAGNOSIS: Cancer Staging Malignant neoplasm metastatic to liver (CMS/HCC) Staging form: Liver, AJCC V7 - Clinical: No stage assigned - Unsigned Problem List Neuroendocrine carcinoma (CMS/HCC) Malignant neoplasm metastatic to liver (CMS/HCC) Neuro-endocrine carcinoma (CMS/HCC) NARRATIVE: La Chung is a 69 y.o. 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 She is s/p lutathera therapy (complete 4/4 fractions on 08/05/19) and continues on octreotide with Dr. Eren Cr. Since last visit patient underwent fulguration of ostomy site on 05/30/2020. She receives monthly octreotide/SSA and was recently started on denosumab. She denies all symptoms including nausea, vomiting, fevers, chills, diarrhea, headaches. 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 REVIEW OF SYSTEMS: Review of Systems - Oncology 12 systems reviewed and negative except as per narrative. PRIOR RADIATION THERAPY: Radiation Treatments Historical Plans Lutathera Most recent treatment: Dose planned: 200 cGy (fraction 4 on 08/05/2019) Total: Dose planned: 800 cGy Elapsed Days: 224 Reference Points Lutathera Most recent treatment: Dose given: 200 cGy (on 08/05/2019) Total: Dose given: 800 cGy Elapsed Days: 224 MEDICATIONS: Current Outpatient Medications: ??? ascorbic acid, vitamin C, 500 mg capsule ??? cholecalciferol (VITAMIN D-3) 2,000 unit capsule ??? clotrimazole-betamethasone (LOTRISONE) cream ??? coenzyme C17-ieddhjc E (CO Q-10, WITH VIT E,) 100-5 mg-unit capsule ??? denosumab (XGEVA) 120 mg/1.7 mL (70 mg/mL) injection ??? DULoxetine DR (CYMBALTA) 30 mg capsule ??? fluticasone propionate (FLONASE) 50 mcg/actuation nasal spray ??? gabapentin (NEURONTIN) 600 mg tablet ??? montelukast (SINGULAIR) 10 mg tablet ??? octreotide (SandoSTATIN) 50 mcg/mL (1 mL) syringe ??? olmesartan-hydrochlorothiazide (BENICAR HCT) 20-12.5 mg per tablet ??? ostomy supplies misc ??? simvastatin (ZOCOR) 20 mg tablet ??? triamcinolone (KENALOG) 0.1 % ointment ??? cholestyramine (QUESTRAN) 4 gram packet ??? ondansetron (ZOFRAN) 8 mg tablet ??? oxybutynin (DITROPAN) 5 mg tablet No current facility-administered medications for this visit. Facility-Administered Medications Ordered in Other Visits: ??? L-arginine 1.25%/L-lysine 1.25% infusion 1,000 mL, 1,000 mL, intravenous, Continuous ALLERGIES: Allergies Allergen Reactions ??? Ezetimibe-Simvastatin Muscle pain and Unknown Muscle weakness ??? Ramipril Cough PHYSICAL EXAMINATION: Telemedicine visit ECOG: (0) Fully active, able to carry on all predisease performance without restriction PAIN: 0 Physical Exam GEN: Alert and oriented. No acute distress. HEENT: Normocephalic, atraumatic. PULM: Breathing comfortably on room air. NEURO: Awake, alert and fully oriented. PSYCH: Appropriate affect. CLINICAL DATA: Ct Soft Tissue Neck With Contrast Result Date: 08/01/2020 Impression: 1. Unchanged sclerotic lesion within the inferior right C7 articular facet likely representing metastasis given dotatate uptake. 2. Unchanged prominent right supraclavicular lymph node. Ct Chest Abdomen W Contrast Result Date: 08/01/2020 Impression: No significant change in multiple serosal hepatic metastases and omental metastatic disease. IMPRESSION AND PLAN: La Chung is a 69 y.o. 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 We explained that as the patient continues to receive injections with Dr. Cr she can follow-up with him. She will return to our clinic as needed. I defer imaging to Dr. Cr but Q4 months for the next year and then extended intervals (with yearly dotatate PET/CTs) thereafter would be reasonable. This was a telemedicine visit with La Chung and which took place via Real-time video connection (InTouch, Zoom or similar).During the visit, I was located in the office and the patient was located at home in the [facility]. I was present for the entire service with the resident and pat ient/caregiver. I agree with the findings and plan of care as documented in the resident's note. Myvisit with the patient started at 10:25 AM and ended at 10:35 AM. My total encounter time on 08/03/2020 was 30 minutes which was spent in the activities documented in the note. This includes time spent prior to the visit and after the visit in direct care of the patient. This time does not include t max spent in any separately reportable services.. The patient: has been informed that the visit may not be secure and acknowledged the information. The Attending has explained the option of participating in a telephone or video visit during the COVID- public [facility] emergency to them. After being given an opportunity to ask questions about and discuss this type of visit, they verbally consented to proceeding with the telephone/video visit and understand that this service replaces an office visit. Yohana Bowen MD Chief, GI Service Department of Radiation Oncology ODITY INDUSTRY ANALYST 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) Neuro-endocrine carcinoma (HCC) Other malignant neoplasm of unspecified site Neuroendocrine carcinoma (HCC) Other malignant neoplasm of unspecified site documented in this encounter Care Teams Weft Straightener Relationship Specialty Start Date End Date Julio César Briseno MD PCP - General 10/01/16 Eren Cr MD Referring Physician Medical Oncology 11/25/18 Yohana Bowen MD Radiation Oncologist Radiation Oncology 11/25/18 documented as of this encounter
--- OUTSIDE RECORDS SUMMARY | 2024-06-25 22:30 | XMS_ITS | Encounter Summary ---
Author Organization [facility] Address [address] [place] [address] Phone Care Team Providers Care Beam Worker Name Role Phone Julio César Briseno MD Primary Care Provider Eren Cr MD Unavailable [phone] Yohana Bowen MD Unavailable Sabrina Willard NP Unavailable [phone] Encounter Details Date Type Department Care Team (Late st Contact Info) Description 08/17/2020 Telephone [facility] Oncology [address] [place] [address] Sabrina Willard, SPICE CLEANER [address] [place] [address] Social History Tobacco Use Types Packs/Day Years Used Date Smoking Tobacco: Never Smokeless Tobacco: Never Alcohol Use Standard Drinks/Week Comments Yes 1 (1 standard drink = 0.6 oz pur e alcohol) Comments No Sex and Gender Information Value Date Recorded Sex Assigned at Not on file Legal Sex Female 2:41 PM TOOL PUSHER Gender Identity Not on file Sexual Orientation Straight 02/19/2021 9: 29 AM CDT Occupation Industry Job Start Date Job End Date retired Not on file Not on file Not on file documented as of this encounter Miscellaneous Notes * Telephone Encounter - Sabrina Willard NP - 08/17/2020 11:58 AM TOOL PUSHER Called La to let her know the CT of head 08/15 was unremarkable for intracranial metastasis or bleed. She is pleased to hear the news. Asked her to call with any questions or issues before next visit as needed. PUSHER documented in this encounter Plan of Treatment Not on file documented as of this encounter Visit Diagnoses Not on filedocumented in this encounter Care Teams Beam Worker Relationship Specialty Start Date End Date Julio César Briseno MD PCP - General 10/01/16 Eren Cr MD Referring Physician Medical Oncology 11/25/18 Yohana Bowen MD Radiation Oncologist Radiation Oncology 11/25/18 Sabrina Willard NP [address] [place] [address] Nurse Practitioner Medical Oncology 08/17/20 11/26/21 documented as of this encounter
--- OUTSIDE RECORDS SUMMARY | 2024-06-25 22:30 | XMS_ITS | Encounter Summary ---
Author Organization [facility] Address [address] [place] [address] Phone Care Team Providers Care Dental Mechanic Name Role Phone Julio César Briseno MD Primary Care Provider Eren Cr MD Unavailable Yohana Bowen MD Unavailable Sabrina Willard NP Unavailable [phone] Encounter Details Date Type Department Care Team (Late st Contact Info) Description 09/01/2020 Orders Only [facility] Oncology [address] [facility] Advanced Medicine 7th [place] [address] [place] [id number] Eren Cr MD [address] [facility] [address] [place] [address] Social History Tobacco Use Types Packs/Day Years Used Date Smoking Tobacco: Never Smokeless Tobacco: Never Alcohol Use Standard Drinks/Week Comments Yes 1 (1 standard drink = 0.6 oz pur e alcohol) Comments No Sex and Gender Information Value Date Recorded Sex Assigned at Not on file Legal Sex Female 2:41 PM 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 CAR 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 Gender Identity Not on file Sexual Orientation Straight 02/19/2021 9: 29 AM CDT Occupation Industry Job Start Date Job End Date retired Not on file Not on file Not on file documented as of this encounter Ordered Prescriptions Prescription Sig Dispense Quantity Refills Last Filled Start Date End Date gabapentin (NEURONTIN) 600 mg tablet Take 1 tablet (600 mg total) by mouth 3 (three) times a day 90 tablet 11 09/01/2020 11/13/2021 documented in this encounter Plan of Treatment Not on file documented as of this encounter Visit Diagnoses Not on filedocumented in this encounter Discontinued Medications Medication Sig Discontinue Reason Start Date End Da te gabapentin (NEURONTIN) 600 mg tablet Take 1 tablet (600 mg total) by mouth 3 (three) times a day Reorder 11/16/2019 09/01/2020 documented as of this encounter Care Teams Dental Mechanic Relationship Specialty Start Date End Date Julio César Briseno MD PCP - General 10/01/16 Eren Cr MD Referring Physician Medical Oncology 11/25/18 Yohana Bowen MD Radiation Oncologist Radiation Oncology 11/25/18 Sabrina Willard NP [address] [place] [address] Nurse Practitioner Medical Oncology 08/17/20 11/26/21 documented as of this encounter
--- OUTSIDE RECORDS SUMMARY | 2024-06-25 22:30 | XMS_ITS | Encounter Summary ---
Author Organization [facility] Address [address] [place] [address] Phone Care Team Providers Care Corn Chip Maker Name Role Phone Julio César Briseno MD Primary Care Provider Eren Cr MD Unavailable Yohana Bowen MD Unavailable Sabrina Willard NP Unavailable Encounter Details Date Type Department Care Team (Late st Contact Info) Description 08/17/2020 Orders Only [facility] Oncology [address] [facility] Advanced Medicine 7th [place] [address] [place] [address] Eren Cr MD [address] [facility] [address] [place] [address] Social History Tobacco Use Types Packs/Day Years Used Date Smoking Tobacco: Never Smokeless Tobacco: Never Alcohol Use Standard Drinks/Week Comments Yes 1 (1 standard drink = 0.6 oz pur e alcohol) Comments No Sex and Gender Information Value Date Recorded Sex Assigned at Not on file Legal Sex Female 2:41 PM DOOR LINER Gender Identity Not on file Sexual Orientation Straight 02/19/2021 9: 29 AM CDT Occupation Industry Job Start Date Job End Date retired Not on file Not on file Not on file documented as of this encounter Plan of Treatment Not on file documented as of this encounter Visit Diagnoses Not on filedocumented in this encounter Care Teams Corn Chip Maker Relationship Specialty Start Date End Date Julio César Briseno MD PCP - General 10/01/16 Eren Cr MD Referring Physician Medical Oncology 11/25/18 Yohana Bowen MD Radiation Oncologist Radiation Oncology 11/25/18 Sabrina Willard NP [address] [place] [address] Nurse Practitioner Medical Oncology 08/17/20 11/26/21 documented as of this encounter
--- OUTSIDE RECORDS SUMMARY | 2024-06-25 22:30 | XMS_ITS | Encounter Summary ---
Author Organization [facility] Address [address] [place] [address] Phone Care Team Providers Care Manager E Commerce Name Role Phone Julio César Briseno MD Primary Care Provider Eren Cr MD Unavailable [phone] Yohana Bowen MD Unavailable Reason for Visit * Reason Comments Ostomy Care Encounter Details Date Type Department Care Team (Late st Contact Info) Description 06/23/2020 3:15 PM PRODUCE PRODUCTION TEAM MEMBER Office Visit [facility] [address] [facility] 2nd Floor [address] [place] [address] Greyson Reeves MD [address] [facility] [phone] [place] [address] Colostomy complication, unspecified (CMS/HCC) (Primary Dx) Social History Tobacco Use Types Packs/Day Years Used Date Smoking Tobacco: Never Smokeless Tobacco: Never Alcohol Use Standard Drinks/Week Comments Yes 1 (1 standard drink = 0.6 oz pur e alcohol) Comments No Sex and Gender Information Value Date Recorded Sex Assigned at Not on file Legal Sex Female 2:41 PM PRODUCE PRODUCTION TEAM MEMBER Gender Identity Not on file Sexual Orientation Straight 02/19/2021 9: 29 AM CDT Occupation Industry Job Start Date Job End Date retired Not on file Not on file Not on file documented as of this encounter Last Filed Vital Signs Vital Sign Reading Time Taken Comments Blood Pressure 169/73 06/23/2020 2:55 PM PRODUCE PRODUCTION TEAM MEMBER Pulse 74 06/23/2020 2:55 PM PRODUCE PRODUCTION TEAM MEMBER Temperature 36.1 ??C (97 ??F) 06/23/2020 2:55 PM PRODUCE PRODUCTION TEAM MEMBER Respiratory Rate - - Oxygen Saturation 96% 06/23/2020 2:55 PM PRODUCE PRODUCTION TEAM MEMBER Inhaled Oxygen Concentration - - Weight 83.2 kg (183 lb 8 oz) 06/23/2020 2:55 PM PRODUCE PRODUCTION TEAM MEMBER Height 160 cm (5' 3 ) 06/23/2020 2:55 PM PRODUCE PRODUCTION TEAM MEMBER Body Mass Index 32.51 06/23/2020 2:55 PM PRODUCE PRODUCTION TEAM MEMBER documented in this encounter Progress Notes * Greyson Reeves MD - 06/23/2020 3:15 PM CST Colorectal Surgery Clinic Visit Chief Complaint: La Chung is a 69 y.o. 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 She has had no further bleeding, pain. She has had some difficulty over the last couple a day with pouching. But overall she is feeling as well as she has in a while. Past Medical History: Diagnosis Date ??? Cancer [...] ??? JOINT REPLACEMENT Left 2014 ? ? MA REMOVAL OF TONSILS,<12 Y/O Tonsillectomy - (Added by TW Conv) ??? MA TOTAL ABDOM HYSTERECTOMY Hysterectomy - (Added by TW Conv) HOME MEDICATIONS : ascorbic acid, vitamin C, 500 mg capsule cholecalciferol (VITAMIN D-3) 2,000 unit capsule cholestyramine (QUESTRAN) 4 gram packet clotrimazole-betamethasone (LOTRISONE) cream coenzyme F12-cbcfhaw E (CO Q-10, WITH VIT E,) 100-5 mg-unit capsule denosumab (XGEVA) 120 mg/1.7 mL (70 mg/mL) injection DULoxetine DR (CYMBALTA) 30 mg capsule fluticasone propionate (FLONASE) 50 mcg/actuation nasal spray gabapentin (NEURONTIN) 600 mg tablet montelukast (SINGULAIR) 10 mg tablet octreotide (SandoSTATIN) 50 mcg/mL (1 mL) syringe olmesartan-hydrochlorothiazide (BENICAR HCT) 20-12.5 mg per tablet ostomy supplies misc oxybutynin (DITROPAN) 5 mg tablet simvastatin (ZOCOR) 20 mg tablet triamcinolone (KENALOG) 0.1 % ointment ondansetron (ZOFRAN) 8 mg tablet Allergies Allergen Reactions ??? Ezetimibe-Simvastatin Muscle pain [...] Other (old age) Mother Review of Systems: All systems are negative except as per HPI and scanned media. Vitals: Vitals BP 169/73 Pulse 74 Temp 36.1 ??C (97 ??F) Ht 160 cm (5' 3 ) Wt 83.2 kg (183 lb 8 oz) SpO2 96% BMI 32.51 kg/m?? Physical exam: GENERAL EXAM Appearance - well developed, well nourished Orientation - alert and oriented x 3 Eyes - anicteric Ears, mouth and nose: Normal Neurologic: Non-focal motor function Pulmonary: Non-labored breathing, no audible wheezing Integumentary: No rashes Musculoskeletal: No gross bony deformities Abdomen -- Soft nontender, nondistended, no masses. She did not want me to take off her stoma appliance. However she did show me pictures that the mucocutaneous junction has healed very nicely. Assessment: La Chung is a 69 y.o. 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 Greyson Reeves MD 06/23/2020 3:18 PM UCE PRODUCTION TEAM MEMBER documented in this encounter Plan of Treatment Not on file documented as of this encounter Visit Diagnoses Diagnosis Colostomy complication, unspecified (HCC)- Primary documented in this encounter Care Teams Manager E Commerce Relationship Specialty Start Date End Date Julio César Briseno MD PCP - General 10/01/16 Eren Cr MD Referring Physician Medical Oncology 11/25/18 Yohana Bowen MD Radiation Oncologist Radiation Oncology 11/25/18 documented as of this encounter
--- OUTSIDE RECORDS SUMMARY | 2024-06-25 22:30 | XMS_ITS | Encounter Summary ---
Author Organization [facility] Address [address] [place] [address] Phone Care Team Providers Care Furniture Polisher Name Role Phone Julio César Briseno MD Primary Care Provider [phone] Eren Cr MD Unavailable Yohana Bowen MD Unavailable Sabrina Willard NP Unavailable [phone] Encounter Details Date Type Department Care Team (Late st Contact Info) Description 09/12/2020 Orders Only [facility] Oncology [address] [facility] Advanced Medicine 7th [place] [address] [place] [address] Sabrina Willard NP [address] [place] [address] Social History Tobacco Use Types Packs/Day Years Used Date Smoking Tobacco: Never Smokeless Tobacco: Never Alcohol Use Standard Drinks/Week Comments Yes 1 (1 standard drink = 0.6 oz pur e alcohol) Comments No Sex and Gender Information Value Date Recorded Sex Assigned at Not on file Legal Sex Female 2:41 PM CARE ASST Gender Identity Not on file Sexual Orientation Straight 02/19/2021 9: 29 AM CDT Occupation Industry Job Start Date Job End Date retired Not on file Not on file Not on file documented as of this encounter Plan of Treatment Not on file documented as of this encounter Visit Diagnoses Not on filedocumented in this encounter Care Teams Furniture Polisher Relationship Specialty Start Date End Date Julio César Briseno MD PCP - General 10/01/16 Eren Cr MD Referring Physician Medical Oncology 11/25/18 Yohana Bowen MD Radiation Oncologist Radiation Oncology 11/25/18 Sabrina Willard NP [address] [place] [address] Nurse Practitioner Medical Oncology 08/17/20 11/26/21 documented as of this encounter
--- OUTSIDE RECORDS SUMMARY | 2024-06-25 22:30 | XMS_ITS | Encounter Summary ---
Author Organization [facility] Address [address] [place] [address] Care Team Providers Care Rope Silica Machine Operator Name Role Phone Julio César Briseno MD Primary Care Provider [phone] Eren Cr MD Unavailable [phone] Yohana Bowen MD Unavailable Reason for Referral * Diagnostic Imaging (Routine) - Closed Specialty Diagnoses / Procedures Referred By Contac t Referred To Contact Radiology Diagnoses Neuro-endocrine carcinoma (HCC) Bone metastasis Malignant neoplasm metastatic to liver (HCC) Procedures CT Chest Abdomen W Contrast Eren Cr MD [address] [place] [address] Phone: tel: fax: [facility] [address] [place] [address] Referral ID Status Reason Start Date Expiration Date Visits Re quested Visits Authorized [id number] Closed 05/09/2020 06/08/2021 1 1 E FOREIGN TOUR * MRI/CAT/PET Scan (Routine) - Closed Specialty Diagnoses / Procedures Referred By Contac t Referred To Contact Radiology Diagnoses Neuro-endocrine carcinoma (HCC) Bone metastasis Malignant neoplasm metastatic to liver (HCC) Procedures CT soft tissue neck with contrast Eren Cr MD [address] [facility] [address] [place] [address] Phone: tel: fax: [address] [address] Referral ID Status Reason Start Date Expiration Date Visits Re quested Visits Authorized [id number] Closed 05/09/2020 06/08/2021 1 1 E FOREIGN TOUR Reason for Visit * Diagnostic Imaging (Routine) - Closed Specialty Diagnoses / Procedures Referred By Contac t Referred To Contact Radiology Diagnoses Neuro-endocrine carcinoma (HCC) Bone metastasis Malignant neoplasm metastatic to liver (HCC) Procedures CT Chest Abdomen W Contrast Eren rC MD [address] [facility] [address] [place] [address] Phone: tel: fax: [address] [address] Referral ID Status Reason Start Date Expiration Date Visits Re quested Visits Authorized [id number] Closed 05/09/2020 06/08/2021 1 1 Encounter Details Date Type Department Care Team (Latest Contact Info) Description 08/01/2020 3:14 PM GUIDE FOREIGN TOUR - 08/01/2020 11:59 PM GUIDE FOREIGN TOUR Hospital Encounter [facility] [address] [place] [address] Eren Cr MD [address] [facility] [address] [address] Neuro-endocrine carcinoma (CMS/HCC); Bone metastasis (CMS/HCC); Malignant neoplasm metastatic to liver (CMS/HCC) [...] on file Legal Sex Female 2:41 PM GUIDE FOREIGN TOUR Gender Identity Not on file Sexual Orientation [...] capsuleIndications :supplement Take 1 tablet by mouth studio potter before breakfast 07/04/2016 4 cholecalciferol (VITAMIN D-3) 2,000 unit capsule Take 1 capsule (2,000 Units total) by mouth daily 30 capsule 2 04/25/2019 3 cholestyramine (QUESTRAN) 4 gram packet Take 1 packet by mouth 3 (three) times a day with meals 270 packet 3 09/04/2019 2 clotrimazole-betam ethasone (LOTRISONE) cream Apply 1 Application topically daily as needed (rash) 4 coenzyme [id number] E 100-5 mg-unit capsuleIndications :supplement Take 1 tablet by mouth studio potter before breakfast 4 denosumab (XGEVA) 120 mg/1.7 [...] Date/Time Associated Diagnosis Comments CT CHEST ABDOMEN W CONTRAST Schedule Routine, Read Routine (OP Routine) 08/01/2020 3:38 PM GUIDE FOREIGN TOUR Neuro-endocrine carcinoma (CMS/HCC) Bone metastasis (CMS/HCC) Malignant neoplasm metastatic to liver (CMS/HCC) CT SOFT TISSUE NECK W CONTRAST Schedule Routine, Read Routine (OP Routine) 08/01/2020 3:38 PM GUIDE FOREIGN TOUR Neuro-endocrine carcinoma (CMS/HCC) Bone metastasis (CMS/HCC) Malignant neoplasm metastatic to liver (CMS/HCC) documented in this encounter Results * CT Chest Abdomen W Contrast (08/01/2020 3:38 PM GUIDE FOREIGN TOUR) Anatomical Region Laterality Modality Body N/A Computed Tomogra phy 08/01/2020 4:00 PM GUIDE FOREIGN TOUR Impressions 08/01/2020 4:00 PM GUIDE FOREIGN TOUR No significant change in multiple serosal hepatic metastases and omental metastatic disease. Electronically signed by: Cindy Llanes M.D. Narrative 08/01/2020 4:[address] of the chest and abdomen with [...] not significantly changed from the prior study. Procedure Note Cindy Llanes MD - 08/01/2020 CT of the chest and abdomen with [...] not significantly changed from the prior study. IMPRESSION: No significant change in multiple serosal hepatic metastases and omental metastatic disease. Electronically signed by: Cindy Llanes M.D. us Eren Cr MD IMG CT PROCEDURES Final Resul t * CT soft tissue neck with contrast (08/01/2020 3:38 PM GUIDE FOREIGN TOUR) Anatomical Region Laterality Modality Head and Neck N/A Computed Tomogra phy 08/01/2020 4:39 PM GUIDE FOREIGN TOUR Impressions 08/01/2020 5:17 PM GUIDE FOREIGN TOUR 1. ??Unchanged sclerotic lesion within the inferior right C7 articular facet likely representing metastasis given dotatate uptake. 2. ??Unchanged prominent right supraclavicular lymph node. Dictated by: Michael Black M.D. The radiology attending physician has personally reviewed this study, and had reviewed and/or edited this written report and agrees with it. Electronically signed by: Elaine Sandoval M.D. Narrative 08/01/2020 5:17 PM GUIDE FOREIGN TOUR EXAMINATION: CT of the neck with contrast HISTORY: Metastatic neuroendocrine tumor. TECHNIQUE: CT of the neck was performed according to standard protocol after the uneventful administration of intravenous contrast. Contrast information: 50 mL Optiray-350 COMPARISON: 05/03/2020. FINDINGS: Review of the topogram demonstrates no abnormality. ??There is an unchanged prominent right supraclavicular lymph node on series 4, image 86 measuring 8 x 11 mm. ??Other scattered subcentimeter lymph nodes are seen in the neck. None are pathologically enlarged or abnormally enhancing. The muscles of the neck are normal. Vessels of the neck demonstrate normal course and caliber. Fascial planes are preserved and the deep spaces of the neck are normal. The visualized airway is widely patent. ??A subcentimeter left thyroid nodule is noted. The base of the skull and the temporal bones are normal. Limited views of the brain including the cerebellum and brainstem are normal. The limited view of the [place] is unremarkable. The visualized portions of the orbits are normal. The spinal canal is normal in caliber. There is multilevel degenerative disc disease. There is no significant interval change in the sclerotic lesion within the right C7 inferior articular facet and T1 pedicle. Procedure Note Elaine Sandoval MD - 08/01/2020 EXAMINATION: CT of the neck with contrast [...] are normal. The limited view of the [place] is unremarkable. The visualized portions of the orbits are normal. The spinal canal is normal in caliber. There is multilevel degenerative disc disease. There is no significant interval change in the sclerotic lesion within the right C7 inferior articular facet and T1 pedicle. IMPRESSION: 1. Unchanged sclerotic lesion within the inferior right C7 articular facet likely representing metastasis given dotatate uptake. 2. Unchanged prominent right supraclavicular lymph node. Dictated by: Michael Black M.D. The radiology attending physician has personally reviewed this study, and had reviewed and/or edited this written report and agrees with it. Electronically signed by: Elaine Sandoval M.D. Eren Cr MD [facility] CT PROCEDURES Final Resul t documented in [...] intravenous, Once in imaging, contrast, Starting on 08/01/20 at 1533, For 1 dose Given 08/01/2020 3:40 PM GUIDE FOREIGN TOUR 100 mL ioversoL (OPTIRAY 350) syringe syringe 50 mL 50 mL, intravenous, Once in imaging, contrast, Starting on 08/01/20 at 1533, For 1 dose Given 08/01/2020 3:40 PM GUIDE FOREIGN TOUR 50 mL documented in this encounter Care Teams Rope Silica Machine Operator Relationship Specialty Start Date End Date Julio César Briseno MD PCP - General 10/01/16 Eren Cr MD Referring Physician Medical Oncology 11/25/18 Yohana Bowen MD Radiation Oncologist Radiation Oncology 11/25/18 documented as of this encounter
--- OUTSIDE RECORDS SUMMARY | 2024-06-25 22:30 | XMS_ITS | Encounter Summary ---
Author Organization [facility] Address [address] [place] [address] Phone Care Team Providers Care Group Home Counselor Name Role Phone Julio César Briseno MD Primary Care Provider Eren Cr MD Unavailable Yohana Bowen MD Unavailable Reason for Visit * Reason Onset Date Comments Confirmed COVID questions 06/22/2020 Encounter Details Date Type Department Care Team (Late st Contact Info) Description 06/22/[address] [facility] [address] [facility] 8th [place] [address] [place] [address] Sola Dubois BClarkAClark Confirmed COVID questions Social History Tobacco Use Types Packs/Day Years Used Date Smoking Tobacco: Never Smokeless Tobacco: Never Alcohol Use Standard Drinks/Week Comments Yes 1 (1 standard drink = 0.6 oz pur e alcohol) Comments No Sex and Gender Information Value Date Recorded Sex Assigned at Not on file Legal Sex Female 2:41 PM ASSISTANT TODDLER TEACHER Gender Identity Not on file Sexual Orientation Straight 02/19/2021 9: 29 AM CDT Occupation Industry Job Start Date Job End Date retired Not on file Not on file Not on file documented as of this encounter Miscellaneous Notes * Telephone Encounter - Sola Dubois B.A. - 06/22/2020 2:07 PM ASSISTANT TODDLER TEACHER Confirmed COVID questions STANT TODDLER TEACHER documented in this encounter Plan of Treatment Not on file documented as of this encounter Visit Diagnoses Not on filedocumented in this encounter Care Teams Group Home Counselor Relationship Specialty Start Date End Date Julio César Briseno MD PCP - General 10/01/16 Eren Cr MD Referring Physician Medical Oncology 11/25/18 oYhana Bowen MD Radiation Oncologist Radiation Oncology 11/25/18 documented as of this encounter
--- OUTSIDE RECORDS SUMMARY | 2024-06-25 22:30 | XMS_ITS | Encounter Summary ---
Author Organization [facility] Address [address] [place] [address] Phone Care Team Providers Care Cuff Presser Name Role Phone Julio César Briseno MD Primary Care Provider Eren Cr MD Unavailable [phone] Yohana Bowen MD Unavailable Encounter Details Date Type Department Care Team (Late st Contact Info) Description 06/06/2020 Orders Only [facility] Oncology [address] [facility] Advanced Medicine 7th [place] [address] [place] [address] Sabrina Willard, WAITER/WAITRESS CAPTAIN [address] [place], [place] [id number] Social History Tobacco Use Types Packs/Day Years Used Date Smoking Tobacco: Never Smokeless Tobacco: Never Alcohol Use Standard Drinks/Week Comments Yes 1 (1 standard drink = 0.6 oz pur e alcohol) Comments No Sex and Gender Information Value Date Recorded Sex Assigned at Not on file Legal Sex Female 2:41 PM HOUSING COORDINATOR Gender Identity Not on file Sexual Orientation Straight 02/19/2021 9: 29 AM CDT Occupation Industry Job Start Date Job End Date retired Not on file Not on file Not on file documented as of this encounter Plan of Treatment Not on file documented as of this encounter Visit Diagnoses Not on filedocumented in this encounter Care Teams Cuff Presser Relationship Specialty Start Date End Date Julio César Briseno MD PCP - General 10/01/16 Eren Cr MD Referring Physician Medical Oncology 11/25/18 Yohana Bowen MD Radiation Oncologist Radiation Oncology 11/25/18 documented as of this encounter
--- OUTSIDE RECORDS SUMMARY | 2024-06-25 22:31 | XMS_ITS | Encounter Summary ---
Author Organization [facility] Address [address] [place] [address] Phone Care Team Providers Care Machine Operators Name Role Phone Julio César Briseno MD Primary Care Provider Eren Cr MD Unavailable [phone] Yohana Bowen MD Unavailable Encounter Details Date Type Department Care Team (Late st Contact Info) Description 05/16/2020 Telephone [facility] Oncology [address] [facility] 7th [place] [address] [place] [address] Bridgett Reyes RN Social History Tobacco Use Types Packs/Day Years Used Date Smoking Tobacco: Never Smokeless Tobacco: Never Alcohol Use Standard Drinks/Week Comments Yes 1 (1 standard drink = 0.6 oz pur e alcohol) Comments No Sex and Gender Information Value Date Recorded Sex Assigned at Not on file Legal Sex Female 2:41 PM HEAD MACHINE FEEDER Gender Identity Not on file Sexual Orientation Straight 02/19/2021 9: 29 AM CDT Occupation Industry Job Start Date Job End Date retired Not on file Not on file Not on file documented as of this encounter Miscellaneous Notes * Telephone Encounter - Bridgett Reyes RN - 05/16/2020 12:30 PM HEAD MACHINE FEEDER Called patient to inform her of lab results. Calcium level on 05/16/20 is 10.3 (within normal limits). Explained we are keeping an eye on her calcium because the Xgeva injections can affect calcium levels. Patient stated she is feeling well and has no questions or concerns at this time. Instructed patient to call Dr. Cr's office with any future questions or concerns. MACHINE FEEDER documented in this encounter Plan of Treatment Not on file documented as of this encounter Visit Diagnoses Not on filedocumented in this encounter Care Teams Machine Operators Relationship Specialty Start Date End Date Julio César Briseno MD PCP - General 10/01/16 Eren Cr MD Referring Physician Medical Oncology 11/25/18 Yohana Bowen MD Radiation Oncologist Radiation Oncology 11/25/18 documented as of this encounter
--- OUTSIDE RECORDS SUMMARY | 2024-06-25 22:31 | XMS_ITS | Encounter Summary ---
Author Organization [facility] Address [address] [place] [address] Phone Care Team Providers Care Senior Environmental Scientist Name Role Phone Julio César Briseno MD Primary Care Provider Eren Cr MD Unavailable [phone] Yohana Bowen MD Unavailable Encounter Details Date Type Department Care Team (Late st Contact Info) Description 05/11/2020 Orders Only [facility] Oncology [address] [facility] Advanced Medicine 7th [place] [address] [place] [address] Eren Cr MD [address] [facility] [address] [place], [place] [id number] Bone metastasis (CMS/HCC) (Primary Dx); Neuroendocrine carcinoma [...] on file Legal Sex Female 2:41 PM EARLY INTERVENTION SPECIALIST Gender Identity Not on file Sexual Orientation Straight 02/19/2021 9: 29 AM CDT Occupation Industry Job Start Date Job End Date retired Not on file Not on file Not on file documented as of this encounter Plan of Treatment Not on file documented as of this encounter Results * Phosphorus (07/04/2020 3:30 PM EARLY INTERVENTION SPECIALIST) [facility] Phosphorus, pl 3.3 2.3 - 4.5 mg/dL [facility] Comment:Testing performed by : [facility], [address] [place] [phone] Blood specimen (specimen) 07/04/2020 3:30 PM EARLY INTERVENTION SPECIALIST 07/04/2020 3:34 PM EARLY INTERVENTION SPECIALIST us Eren Cr MD LAB BLOOD ORDERABLES Final Re sult Performing Organization Address [facility] Co de Phone Number [facility] [place] [address] * Phosphorus (06/06/2020 3:37 PM EARLY INTERVENTION SPECIALIST) [facility] Phosphorus, pl 2.5 2.3 - 4.5 mg/dL [facility] Comment:Testing performed by : [facility], [address] [place] [phone] Blood specimen (specimen) 06/06/2020 3:37 PM EARLY INTERVENTION SPECIALIST 06/06/2020 3:39 PM EARLY INTERVENTION SPECIALIST us Eren Cr MD LAB BLOOD ORDERABLES Final Re sult Performing Organization Address City/[facility] Co de Phone Number [facility] [place] [address] documented in this encounter Visit Diagnoses Diagnosis Bone metastasis- Primary Secondary malignant neoplasm of bone and bone marrow Neuroendocrine carcinoma (HCC) Other malignant neoplasm of unspecified site 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
--- OUTSIDE RECORDS SUMMARY | 2024-06-25 22:31 | XMS_ITS | Encounter Summary ---
Author Organization [facility] Healthcare Address [address] [place] [address] Care Team Providers Care Rattle Leak And Squeak Repairer Name Role Phone Julio César Briseno MD Primary Care Provider [phone] [address] MD Unavailable [phone] Yohana Bowen MD Unavailable Encounter Details Date Type Department Care Team (Latest Contact Info) Description 05/30/2020 5:55 AM NEPHROLOGY SOCIAL WORKER - 05/30/2020 8:56 AM NEPHROLOGY SOCIAL WORKER Hospital Encounter [facility] Operating Room [address] [place] [address] Thea Reeves MD [address] [facility] [phone] [place] [address] Discharge Disposition: Discharge to home or self care Social History Tobacco Use Types Packs/Day Years Used Date Smoking Tobacco: Never Smokeless Tobacco: Never Alcohol Use Standard Drinks/Week Comments Yes 1 (1 standard drink = 0.6 oz pur e alcohol) Comments No Sex and Gender Information Value Date Recorded Sex Assigned at Not on file Legal Sex Female 2:41 PM NEPHROLOGY SOCIAL WORKER Gender Identity Not on file Sexual Orientation Straight 02/19/2021 9: 29 AM CDT Occupation Industry Job Start Date Job End Date retired Not on file Not on file Not on file documented as of this encounter Last Filed Vital Signs Vital Sign Reading Time Taken Comments Blood Pressure 164/74 05/30/2020 8:35 AM NEPHROLOGY SOCIAL WORKER Pulse 72 05/30/2020 8:35 AM NEPHROLOGY SOCIAL WORKER Temperature 36.1 ??C (97 ??F) 05/30/2020 8:01 AM NEPHROLOGY SOCIAL WORKER Respiratory Rate 13 05/30/2020 8:35 AM NEPHROLOGY SOCIAL WORKER Oxygen Saturation 95% 05/30/2020 8:35 AM NEPHROLOGY SOCIAL WORKER Inhaled Oxygen Concentration - - Weight 83.9 kg (185 lb) 05/24/2020 12:50 PM NEPHROLOGY SOCIAL WORKER Height 160 cm (5' 3 ) 05/24/2020 12:50 PM NEPHROLOGY SOCIAL WORKER Body Mass Index 32.77 05/24/2020 12:50 PM NEPHROLOGY SOCIAL WORKER documented in this encounter Discharge Diagnoses Diagnosis Other complications of colostomy (HCC) - OTHER COMPLICATIONS OF COLOSTOMY Exposure to other specified factors, initial encounter - EXPOSURE TO OTHER SPECIFIED FACTORS, INITIAL ENCOUNTER Surgical operation with formation of external stoma as the cause of abnormal reaction of the patient, or of later complication, without mention of misadventure at the time of the procedure - SURGICAL OPERATION WITH FORMATION OF EXTERNAL STOMA THE CAUSE OF ABNORMAL REACTION OF THE PATIENT Miscellaneous gastroenterology and urology devices associated with adverse incidents, not elsewhere classified - MISCELLANEOUS GASTROENTEROLOGY AND UROLOGY DEVICES ASSOCIATED WITH ADVERSE INCIDENTS, NOT ELSEWHERE Other specified epidermal thickening - OTHER SPECIFIED EPIDERMAL THICKENING Activity, unspecified - ACTIVITY, UNSPECIFIED Unspecified place or not applicable - UNSPECIFIED PLACE OR NOT APPLICABLE Unspecified external cause status - UNSPECIFIED EXTERNAL CAUSE STATUS Other malignant neuroendocrine tumors (HCC) - OTHER MALIGNANT NEUROENDOCRINE TUMORS Secondary malignant neoplasm of bone (CMS/HCC) (HCC) - SECONDARY MALIGNANT NEOPLASM OF BONE 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) - SECONDARY MALIGNANT NEOPLASM OF LIVER AND INTRAHEPATIC BILE DUCT Anxiety disorder, unspecified - ANXIETY DISORDER, UNSPECIFIED Essential (primary) hypertension - ESSENTIAL (PRIMARY) HYPERTENSION Unspecified essential hypertension Hyperlipidemia, unspecified - HYPERLIPIDEMIA, UNSPECIFIED Atherosclerotic heart disease of [place] coronary artery without angina pectoris - ATHEROSCLEROTIC HEART DISEASE OF [place] CORONARY ARTERY WITHOUT ANGINA PECTORIS Obesity, unspecified - OBESITY, UNSPECIFIED Gastro-esophageal reflux disease without esophagitis - GASTRO-ESOPHAGEAL REFLUX DISEASE WITHOUT ESOPHAGITIS Pure hypercholesterolemia, unspecified - PURE HYPERCHOLESTEROLEMIA, UNSPECIFIED Personal history of antineoplastic chemotherapy - PERSONAL HISTORY OF ANTINEOPLASTIC CHEMOTHERAPY Other [facility] (current[facility] drug therapy - OTHER HEAD BELLHOP CAPTAIN (CURRENT) DRUG THERAPY documented in this encounter Discharge Instructions * Discharge Instructions* Goersch, Birgit M., RN - 05/30/2020 8:10 AM NEPHROLOGY SOCIAL WORKER FAQs (frequently asked questions) about Surgical Site Infections What is a Surgical Site Infection (SSI)? A surgical site infection is and infection that occurs after surgery in the part of the body where the surgery took place. Most patients who have surgery do not develop an infection. However, infections develop in about 1 to 3 out of every 100 patients who have surgery. Some of the common symptoms fo a surgical site infection are: ?? Redness and pain around the area where you had surgery ?? Drainage of cloudy fluid from your surgical wound ?? Fever Can SSIs be treated? Yes. Most surgical site infections can be treated with antibiotics. The antibiotic given to you depends on the bacteria (germs) causing the infection. Sometimes patients with SSIs causing the infection. Sometimes patients with SSIs also need another surgery to treat the infection. What are some of the things that hospitals are doing to prevent SSIs? To prevent SSIs, doctors, nurses, and other healthcare providers: ?? Clean their hands and arms up to their elbows with an antiseptic agent just before the surgery. ?? Clean their hands with soap and water or an alcohol-based hand rub before and after caring for each patient. ?? May remove some of your hair immediately before your surgery using electric clippers if the hairis in the same area where the procedure will occur. They should not shave you with a razor. ?? Wear special hair covers, masks, gowns, and gloves during surgery to keep the surgery area clean. ?? Give you antibiotics before your surgery starts. In most cases, you should get antibiotics within 60 minutes before the surgery starts and the antibiotics should be stopped within 24 hours after surgery. ?? Clean the skin at the site of your surgery with a special soap that kills germs. What can I do to help prevent SSIs? Before your surgery: ?? Tell your doctor about other medical problems you may have. Health problems such as allergies, diabetes, and obesity could affect your surgery and your treatment. ?? Quit smoking. Patients who smoke get more infections. Talk to your doctor about how you can quitbefore your surgery. ?? Do not shave near where you will have surgery. Shaving with a razor can irritate your skin and make it easier to develop an infection. At the time of your surgery: ?? Speak up if someone tries to shave you with a razor before surgery. Ask why you need to be shaved and talk with your surgeon if you have any concerns. ?? Ask if you will get antibiotics before surgery. After your surgery: ?? Make sure that your healthcare providers clean their hands before examining you, either with soap and water or an alcohol-based hand rub. ?? If you do not see you providers clean their hands, please ask them to do so. ?? Family and friends who visit you should not touch the surgical wound or dressings. ?? Family and friends should clean their hands with soap and water or an alcohol-based hand rub before and after visiting You. If you do not see them clean their hands, ask them to clean their hands. What do I need to do when I go home from the hospital? ?? Before you go home, your doctor or nurse should explain everything you need to know about takingcare of your wound. Make sure you understand how to care for your wound before you leave the hospital. ?? Always clean your hands before and after caring for your wound. ?? Before you go home, make sure you know who to contact if you have questions or problems after you get home. ?? If you have any symptoms of an infection, such as a redness and pain at the surgery site, drainage, or fever, call your doctor immediately. If you have additional questions, please ask your doctor or nurse. Safety Tips for Preventing Falls at Home Falls happen at home for many reasons. Here are several things that are known to add to your risk of falling: ?? Poor vision or hearing ?? History of falls ?? Use of an assistive device, such as a cane or walker ?? Poor nutrition ?? Certain medications ?? Multiple medications ?? Being older than 65 years of age ?? Conditions in the home, such as slippery floors, loose rugs, cords on the floor If you answer ???yes?? to any of the following questions, please consider discussing your risk of falling with your primary care practitioner: ?? Have you fallen in the last year? ?? Do you feel unsteady when standing or walking? ?? Do you have a fear of falling? If your primary care practitioner recommends physical therapy, we are available to assist: [facility] STAR: [facility] [place] [phone] [place] [phone] [facility] [phone] How are some things that you can do that will lower your risk for falls at home: ?? Arrange furniture to prevent tripping or bumping into it. ?? Keep a light on in the bedroom & bathroom to help you see at night. ?? Have your doctor or pharmacist review your medications. ?? Remove things that you can trip over like phone cords, rugs & footstools. ?? Wear sturdy non-skid slippers or shoes with flat or low heels ?? Use handrails when going up & down stairs. Take one step at a time. ?? Begin a regular exercise program ?? When getting up, sit on the edge of the bed/chair for a few minutes before standing. Sit & stand up slowly. Avoid tilting your head back. ?? Watch out for sidewalks & curbs that are not even. ?? Replace worn walker, cane & crutch tips. Disclaimer: This material provides general information only. It should not be used in place of the advice, instructions, or treatment given by your doctor or other health care attendant. Moderate Sedation WHAT YOU NEED TO KNOW: Moderate sedation, or conscious sedation, is medicine used during procedures to help you feel relaxed and calm. You will be awake and able to follow directions without anxiety or pain. You will remember little to none of the procedure. You may feel tired, weak, or unsteady on your feet after you get sedation. You may also have trouble concentrating or short-term memory loss. These symptoms should go away in 24 hours or less. DISCHARGE INSTRUCTIONS: Call 911 or have someone else call for any of the following: ?? You have sudden trouble breathing. ?? You cannot be woken. Seek care immediately if: ?? You have a severe headache or dizziness. ?? Your heart is beating faster than usual. Contact your healthcare provider if: ?? You have a fever. ?? You have nausea or are vomiting for more than 8 hours after the procedure. ?? Your skin is itchy, swollen, or you have a rash. ?? You have questions or concerns about your condition or care. Self-care: ?? Have someone stay with you for 24 hours. This person can drive you to errands and help you do things around the house. This person can also watch for problems. ?? Rest and do quiet activities for 24 hours. Do not exercise, ride a bike, or play sports. Stand up slowly to prevent dizziness and falls. Take short walks around the house with another person. Slowly return to your usual activities the next day. ?? Do not drive or use dangerous machines or tools for 24 hours. You may injure yourself or others.Examples include a lawnmower, saw, or drill. Do not return to work for 24 hours if you use dangerous machines or tools for work. ?? Do not make important decisions for 24 hours. For example, do not sign important papers or invest money. ?? Drink liquids as directed. Liquids help flush the sedation medicine out of your body. Ask how much liquid to drink each day and which liquids are best for you. ?? Eat small, frequent meals to prevent nausea and vomiting. Start with clear liquids such as juiceor broth. If you do not vomit after clear liquids, you can eat your usual foods. ?? Do not drink alcohol or take medicines that make you drowsy. This includes medicines that help you sleep and anxiety medicines. Ask your healthcare provider if it is safe for you to take pain medicine. Follow up with your healthcare provider as directed: Write down your questions so you remember to ask them during your visits. ?? 2017 [employer] Information is for End User's use only and may not be sold, redistributed or otherwise used for commercial purposes. All illustrations and images included in CareNotes?? are the copyrighted property of [employer] or [employer]. The above information is an cartographic aide only. It is not intended as medical advice for individual conditions or treatments. Talk to your doctor, nurse or pharmacist before following any medical regimen to see if it is safe and effective for you. ROLOGY SOCIAL WORKER documented in this encounter Medications at Time of Discharge ostomy supplies [facility] Patient has colostomy and needs Cavilon 3M skin barrier film to manage. 20 each 6 09/21/2019 simvastatin (ZOCOR) 20 mg tablet Take 1 tablet (20 mg total) by mouth nightly ascorbic acid, vitamin C, 500 mg capsuleIndications :supplement Take 1 tablet by mouth sleeping car service attendant before breakfast 07/04/2016 4 cholecalciferol (VITAMIN D-3) 2,000 unit capsule Take 1 capsule (2,000 Units total) by mouth daily 30 capsule 2 04/25/2019 3 cholestyramine (QUESTRAN) 4 gram packet Take 1 packet by mouth 3 (three) times a day with meals 270 packet 3 09/04/2019 2 clotrimazole-betam ethasone (LOTRISONE) cream Apply 1 Application topically daily as needed (rash) 4 coenzyme [id number] 100-5 mg-unit capsuleIndications :supplement Take 1 tablet by mouth sleeping car service attendant before breakfast 4 denosumab (XGEVA) 120 mg/1.7 [...] or self care documented in this encounter H&P Notes * Mitchel Tabares MD - 05/30/2020 6:55 AM CST I have reviewed the H&P, examined the patient, and endorse the findings as written. Plan of Care : Based on the above findings, I consider La Chung to be an acceptable risk for :Procedure(s): EXAM UNDER ANESTHESIA - RECTUM FULGURATION PARASTOMAL EPITHELIAL HYPERPLASIA General: NAD, aox4 Head: atraumatic, normocephalic, conjunctiva pink, mucosa wet Chest: RRR, no murmurs, thrills Abdomen: soft, non-tender, non-distended, BS +, left lower quadrant colostomy; pink, viable and functioning with scattered PEH around the stoma. Extremity: well perfused, capillary refill normal, normal ROM Phychological: normal affect Cosigned by Thea Reeves MD at 05/30/2020 7:23 AM NEPHROLOGY SOCIAL WORKER ROLOGY SOCIAL WORKER ROLOGY SOCIAL WORKER Source Note - Thea Reeves MD - 05/24/2020 10:00 AM NEPHROLOGY SOCIAL WORKER Colorectal Surgery Clinic Visit Chief Complaint: La Chung is a 69 y.o. 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 She has known pseudo epithelial hyperplasia. She has beentreating this at home with silver nitrate. It is been working somewhat that is becoming too painfulto treat. She also has pain associated when she changes her stoma. And this is when the bleeding occurs. She has no change in its output. And on examination she does not see any blood coming from thelumen. Past Medical History: Diagnosis Date ??? Cancer (CMS/HCC) ??? Family history of malignant hyperthermia grandson - questionable ??? GERD (gastroesophageal reflux disease) ??? Hypercholesteremia ??? Hypertension ??? Motion sickness ??? Personal history of other diseases of the digestive system History of hemorrhoids - (Added by TW Conv) ??? PONV (postoperative nausea and vomiting) Past Surgical History: Procedure Laterality Date ??? COLON SURGERY 10/03/2015 Right colectomy ??? EXPLORATORY LAPAROTOMY 04/13/2019 Exploratory laparotomy with [...] LINE PLACEMENT > 5 YEARS N/A 08/04/2019 ? ? AL REMOVAL OF TONSILS,<12 Y/O Tonsillectomy - (Added by TW Conv) ??? AL TOTAL ABDOM HYSTERECTOMY Hysterectomy - (Added by TW Conv) HOME MEDICATIONS : ascorbic acid, vitamin C, 500 mg capsule cholecalciferol (VITAMIN D-3) 2,000 unit capsule cholestyramine (QUESTRAN) 4 gram packet clotrimazole-betamethasone (LOTRISONE) cream coenzyme [id number] (CO Q-10, WITH VIT E,) 100-5 mg-unit capsule DULoxetine DR (CYMBALTA) 30 mg capsule fluticasone propionate (FLONASE) 50 mcg/actuation nasal spray gabapentin (NEURONTIN) 600 mg tablet montelukast (SINGULAIR) 10 mg tablet olmesartan-hydrochlorothiazide (BENICAR HCT) 20-12.5 mg per tablet ondansetron (ZOFRAN) 8 mg tablet ostomy supplies misc oxybutynin (DITROPAN) 5 mg tablet simvastatin (ZOCOR) 20 mg tablet triamcinolone (KENALOG) 0.1 % ointment Allergies Allergen Reactions ??? Ezetimibe-Simvastatin Muscle pain [...] HPI and scanned media. Vitals: Vitals BP (!) 173/75 Pulse 75 Temp 36.6 ??C (97.8 ??F) Resp 12 Wt 84.1 kg (185 lb 6.4 oz) SpO2 97% BMI 32.84 kg/m?? Physical exam: GENERAL EXAM Appearance - well developed, well nourished Orientation - alert and oriented x 3 Eyes - anicteric Ears, mouth and nose: Normal Neurologic: Non-focal motor function Pulmonary: Non-labored breathing, no audible wheezing Integumentary: No rashes Musculoskeletal: No gross bony deformities Abdomen -- Soft nontender, nondistended, no masses. Will midline incision is well-healed with hernias that are reducible. She has a left lower quadrant colostomy that is pink viable and functioning with scattered PEH around the stoma. Assessment: La Chung is a 69 y.o. female with with a colostomy and pseudo epithelial hyperplasia Plan: Will plan on bringing her to the operating room for fulguration of the lesions. Thea Reeves MD 05/24/2020 9:26 AM ROLOGY SOCIAL WORKER documented in this encounter Miscellaneous Notes * Op Note - Thea Reeves MD - 05/30/2020 8:00 AM CST SURGEON Thea Reeves MD CLINICAL CARE COORDINATOR: PREOPERATIVE DIAGNOSIS: Pseudo epithelial hyperplasia of the stoma POSTOPERATIVE DIAGNOSIS: Same OPERATIVE PROCEDURE: Examination under anesthesia and fulguration of pseudo epithelial hyperplasia ANESTHESIAIV sedation with 20 mL of 0.25% Marcaine. INDICATIONS FOR PROCEDURE The patient is a 69 y.o. female with a history of metastatic carcinoid tumor who has a end colostomy due to obstruction. She has developed painful tender lesions on the mucocutaneous junction. This is all consistent with pseudo epithelial hyperplasia. We have tried treatment with silver nitrate which she is not tolerating. Therefore which she is now brought to the operating room. OPERATIVE FINDINGS: Circumferential pseudo epithelial hyperplasia at the mucocutaneous junction OPERATIVE PROCEDUREWith informed consent, the patient was brought to the operating room, placed in the supine position. She was not given any prophylactic IV antibiotics or venous thromboembolic event prophylaxis. Her abdomen was prepped and draped in usual sterile fashion. IV sedation was given and the subcutaneous tissue was infiltrated with local anesthesia. We then with use of electrocauteryfulgurated the PEH circumferentially. The patient tolerated the procedure well and was taken to postanesthesia recovery in stable condition. SPONGE, INSTRUMENT, NEEDLE COUNTS were correct. TOTAL IV FLUIDS: 1 L ESTIMATED BLOOD LOSS: Minimal. SPECIMEN: None Of note, I Dr. Reeves, was present for the entire case. THEA REEVES M.D. ROLOGY SOCIAL WORKER * Pre-Procedure Instructions - Mayank Feliciano NP - 05/25/2020 10:28 AM CST [facility] Preoperative [facility] and Planning CPAP Clinic Location: [facility] The night before your surgery: * Do not eat or drink anything after midnight. This includes candy, mint, gums, chewable antacids (TUMS, Rolaids) and cough drops * Do not smoke after midnight the night before surgery. It is best to stop smoking now to improve your health. The morning of your surgery: * You may brush your teeth and rinse your mouth out. * Do not glue your dentures. * Do not wear jewelry, body piercings, makeup, hairpins, false eyelashes or contact lenses to the hospital. * Leave any valuables at home or with your family. You may want to bring a credit card if you want to use our Mobile Pharmacy for your discharge medications. If you have been told to drink Gatorade or Clear Fast before your surgery: * Your surgeon will tell you to drink Gatorade or Clear Fast on the day of your surgery. They will also tell you how much you can drink. The usual amount is two 12 ounce bottles (24 ounces total). Ifyou have diabetes you should drink a reduced sugar drink. * You need to stop drinking the Gatorade or Clear Fast at least 2 hours before your surgery. Your surgeon will tell you exactly what time you need to stop. Outpatient Surgery: * You must have a responsible adult drive you home and stay with you for 24 hours after your surgery * You cannot be alone at home or in a hotel * Please call your surgeon's office if you do not have someone to drive you home and/or stay with you after surgery Instructions For Your Medications: Pre-Surgery Instructions: Medication Instructions ??? ascorbic acid, vitamin C, 500 mg capsule Don't take on day of surgery ??? cholecalciferol (VITAMIN D-3) 2,000 unit capsule Don't take on day of surgery ??? cholestyramine (QUESTRAN) 4 gram packet Don't take on day of surgery ??? clotrimazole-betamethasone (LOTRISONE) cream Don't take on day of surgery ??? coenzyme [id number] E (CO Q-10, WITH VIT E,) 100-5 mg-unit capsule Don't take on day of surgery ??? denosumab (XGEVA) 120 mg/1.7 mL (70 mg/mL) injection Don't take on day of surgery ??? DULoxetine DR (CYMBALTA) 30 mg capsule Take morning of surgery ??? fluticasone propionate (FLONASE) 50 mcg/actuation nasal spray Don't take on day of surgery ??? gabapentin (NEURONTIN) 600 mg tablet Take on day of surgery if needed ??? montelukast (SINGULAIR) 10 mg tablet Don't take on day of surgery ??? octreotide (SandoSTATIN) 50 mcg/mL (1 mL) syringe Take on day of surgery if needed ??? olmesartan-hydrochlorothiazide (BENICAR HCT) 20-12.5 mg per tablet Don't take on day of surgery ??? ondansetron (ZOFRAN) 8 mg tablet Take on day of surgery if needed ??? oxybutynin (DITROPAN) 5 mg tablet Don't take on day of surgery ??? simvastatin (ZOCOR) 20 mg tablet Don't take on day of surgery ??? triamcinolone (KENALOG) 0.1 % ointment Don't take on day of surgery General Instructions For Medications: ?? For medications that you are instructed to take on the morning of surgery, take the medications with a few sips of water. ?? Stop all of these medications 7-14 days prior to your surgery: Vitamin E, Herbal medicines, DietPills ?? If you have pain, you may take tylenol (acetaminophen). Do not take more than 6 tablets or 3000 mg (3 g) within a 24 period. Call your surgeon and the CPAP clinic if any of the following happens before surgery: ?? Any changes in your health ?? You have a fever ?? You have any signs of an infection (chest, urinary tract or tooth) ?? You have been to the Emergency Room or were in the hospital ?? You have started taking any new medications ?? You have questions about a bowel prep or special diet before surgery ROLOGY SOCIAL WORKER * Perioperative Nursing Note - Yvonne Torres RN - 05/24/2020 1:01 PM NEPHROLOGY SOCIAL WORKER Center for Preoperative Assessment and Planning Perioperative Nursing Note Telephone Preoperative Evaluation ([facility]) - TELEPHONE ONLY, NO PHYSICAL EXAM Date: 05/24/20 Vitals: 05/24/20 1250 Weight: 83.9 kg (185 lb) Height: 160 cm (5' 3 ) CHEST CIRCUMFERENCE: n/a Social History Tobacco Use Smoking Status Never Smoker Smokeless Tobacco Never Used Substance and Sexual Activity Alcohol Use Yes ??? Alcohol/week: 1.0 standard drinks ??? Types: 1 Shots of liquor per week Substance and Sexual Activity Drug Use No Outpatient Medications Marked as Taking for the 05/30/20 encounter (Hospital Encounter) Medication Sig Dispense Refill ??? ascorbic acid, vitamin C, 500 mg capsule Take 1 tablet by mouth sleeping car service attendant before breakfast ??? cholecalciferol (VITAMIN D-3) 2,000 unit capsule Take 1 capsule (2,000 Units total) by mouth daily (Patient taking differently: Take 6,000 Units by mouth sleeping car service attendant before breakfast ) 30 capsule 2 ??? cholestyramine (QUESTRAN) 4 gram packet Take 1 packet by mouth 3 (three) times a day with packet 3 ??? clotrimazole-betamethasone (LOTRISONE) cream clotrimazole-betamethasone 1 %- 0.05 % topical cream APPLY EXTERNALLY TO ABDOMEN TWICE DAILY NEEDED ??? coenzyme C99-sawupat E (CO Q-10, WITH VIT E,) 100-5 mg-unit capsule Take by mouth early morningbefore breakfast ??? denosumab (XGEVA) 120 mg/1.7 mL (70 mg/mL) injection Inject under the skin every 30 (thirty) days ??? 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 fluticasone propionate (FLONASE) 50 mcg/actuation nasal spray fluticasone propionate 50 mcg/actuation nasal spray,suspension ??? gabapentin (NEURONTIN) 600 mg tablet Take 1 tablet (600 mg total) by mouth 3 (three) times a day 90 tablet 11 ??? montelukast (SINGULAIR) 10 mg tablet Take 10 mg by mouth as needed ??? octreotide (SandoSTATIN) 50 mcg/mL (1 mL) syringe every 30 (thirty) days ??? 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 simvastatin (ZOCOR) 20 mg tablet Take 20 mg by mouth nightly ??? triamcinolone (KENALOG) 0.1 % ointment Apply to itchy rash on hands twice daily until improved 454 g 1 Implants Other - see comments Other - See Comments - Implanted (Left) Knee As of 08/04/2019 Status: Implanted SKIN Piercings Remaining: Yes Wound (LDAs) Type of Wound (LDA): (colostomy stoma) SCREENINGS Cheri index score: 80 Is someone currently physically or emotionally hurting you or your family?: Denies NUTRITION PATIENT CARE PLANNING Advance Directives (For Healthcare) Have you reviewed your Advance Directive and is it valid for this stay?: No Advance Directive: Patient does not have advance directive Information Provided on Healthcare Directives: No Communication/Sock Drier Needs Communication Needs: Glasses Assistive Devices/DME: Eyeglasses Hearing - Right Ear: Hearing aid Hearing - Left Ear: Hearing aid Discharge Planning Type of Residence: Private residence Living Arrangements: Spouse/significant other Support Systems: Spouse/significant other Assistance Needed: Daughter Caroline or Alejo to provide DC ride post-op COVID Screening Covid-19 Screening In the last 10 days have you had any new or worsening cough, SOB, fever (>=100F), body aches, loss of taste or smell, diarrhea or vomiting, or sore throat?: No Have you had close contact with anyone with confirmed or suspected COVID-19 in the past 3 weeks?: (!) Yes(exposed 05/13/2020/[place] [facility] [place] Do you live in or work in a congregate living facility (ex. assisted living/usp facility, snf, nursing home)?: No Have you tested positive for COVID-19 within the last 14 days?: No Have you previously tested positive for COVID-19? No TESTING PLAN-See Instructions for plan We recommend you Self-Isolate after COVID Testing: Stay at home, if possible until your surgery date. Maintain a 6 foot distance from other people (social distancing). Avoid touching your eyes, nose and mouth with unwashed hands. Wash your hands often with soap and water for at least 20 seconds. Use an alcohol- based hand employment programs analyst that contains at least 60% alcohol if soap and water are not available. ADDITIONAL COMMENTS/ FOLLOW UP ROLOGY SOCIAL WORKER * Pre-Procedure Instructions - Yvonne Torres RN - 05/24/2020 12:59 PM NEPHROLOGY SOCIAL WORKER PRE-SURGICAL INSTRUCTIONS ??? General Information ?? Surgery location provided to patient. ?? Arrival time and surgical time will be provided by your surgeon. ?? Wear something clean, loose, comfortable and easy to get in and out of. ?? Leave your valuables and any jewelry at home (No metal or piercings are allowed in the operatingroom) ?? Bring your insurance card, a photo ID (like a [employer] license) and a method of payment for any insurance copay, deductible, or copay for discharge medications. ?? Bring a complete, up to date list of all of your medications including any over the counter medications or supplements you may take. ? How To Prepare Your Skin For Surgery Antiseptic/antibacterial soap will decrease the amount of germs on your skin. It is important to minimize the risk of getting an infection by doing the following: ?? Change all the linens on the bed the night before surgery so you are sleeping on clean fresh sheets and pillowcases. ?? Shower the evening before and the morning of surgery with an antibacterial soap such as Dial or a surgical soap known as chlorhexidine (Hibiclens). You can purchase this soap at any pharmacy or department store or come by our CPAP clinic and we will give it to you free of charge. Do not use thissoap on your face or hair. ?? Wash your hair and face with your regular shampoo (no conditioners) and facial cleanser. ?? Take a shower using ?? cup (2 oz.) of antiseptic soap applied to a clean fresh washcloth. Scrub your entire body from the neck down. If you can't reach the surgical site, such as your back, have someone help you with your shower. Step out of the water and leave soap on your skin for 2 minutes prior to rinsing off. Rinse thoroughly and dry yourself off with a clean fresh dry towel. ?? Wear clean clothes or pajamas to sleep in and on morning of surgery. ?? Nothing extra on the skin or hair such as deodorant, makeup, hair products, lotions, powders, Vaseline, creams, or perfumes the evening before and the morning of surgery. ?? The morning of the surgery repeat the shower process with the remaining ?? cup (2 oz.) of surgical scrub using another fresh wash cloth and towel. ?? Do not shave the morning of surgery. ?? REMEMBER no deodorant, make-up, lotions, powders, creams, Vaseline, oils, conditioners or hair products the morning of the surgery. COVID TESTING PLAN COVID Test Request Placed in Epic to [facility]. Test to be performed on 05/27 at [facility], If you have COVID testing or should have COVID testing for your surgery/procedure, please read below section: If you need to reschedule your COVID test to a different location or if your surgery gets rescheduled, you MUST call [phone] Saturday-Saturday 8am-4:30pm to get your COVID testing rescheduled or your lab order will not be available at Testing Sites. COVID Testing is only valid for up to 96 hours prior to surgery date, unless otherwise specified. If you are unable to reach staff at the above phone number, please call the CPAP Staff at [phone]. This number cannot order a lab test, but can attempt to contact the above number/staff to assist you. We are available Saturday-Saturday 8am-4:30pm . We recommend you Self-Isolate after COVID Testing: Stay at home, if possible until your surgery date. Maintain a 6 foot distance from other people (social distancing). Avoid touching your eyes, nose and mouth with unwashed hands. Wash your hands often with soap and water for at least 20 seconds. Use an alcohol- based hand employment programs analyst that contains at least 60% alcohol if soap and water are not available. ALL Patients should read below section: All visitors/patients are being asked to wear a clean mask when entering the hospital. COVID 19 Updates & Visitor Policy: Please access [email or web address] for the most updated information. Surgery Times: ??? [facility], if your surgeon's office has not notified you of your surgery time by NOON THE BUSINESS DAY BEFORE your surgery, please call [phone] and ask for your surgeon's office ROLOGY SOCIAL WORKER documented in this encounter Plan of Treatment Not on file documented as of this encounter Procedures Procedure Name Priority Date/Time Associated Diagnosis Comments FULGURATION PARASTOMAL EPITHELIAL HYPERPLASIA 05/30/2020 7:43 AM NEPHROLOGY SOCIAL WORKER Pseudoepitheliomatous hyperplasia EXAM UNDER ANESTHESIA - RECTUM 05/30/2020 7:43 AM NEPHROLOGY SOCIAL WORKER Pseudoepitheliomatous hyperplasia documented in this encounter Visit Diagnoses Diagnosis Pseudoepitheliomatous hyperplasia- Primary documented in this encounter Admitting Diagnoses Diagnosis Pseudoepitheliomatous hyperplasia documented in this encounter Administered Medications Inactive Administered Medications - up to 3 most recent administrations Medication Order MAR Action Action Date Dose Rate Site Lactated Ringer's (LR) infusion 30 mL/hr, intravenous, Continuous, Starting on Sat05/30/20 at 0645, Pre-Op, Use a 500 ml bag for End Stage Renal Disease Patients Rate/Dose Change 05/30/2020 7:43 AM NEPHROLOGY SOCIAL WORKER 50 mL/hr New Bag 05/30/2020 6:39 AM NEPHROLOGY SOCIAL WORKER 30 mL/hr 30 mL/hr scopolamine patch 72 hour 1 patch 1 patch, transdermal, Administer over 72 Hours, Every 72 hours, First dose on Sat05/30/20 at 0645, For 1 dose, Pre-Op, Apply to Dr. Fink's patients, as well as to beach-chair position shoulder surgery patients, and to patients with a history of PONV and/or Motion Sickness. Do NOT administer to patients with a history of BPH or Glaucoma. Consult Anesthesiologist with any questions. In case of Urinary Retention, remove patch immediately and clean patch site with Alcohol., Indications: Motion Sickness, Prevention of Motion Sickness, Prevention of Post-Operative Nausea and VomitingIndications:Motion Sickness,Prevention of Motion Sickness,Prevention of Post-Operative Nausea and Vomiting Medication Applied 05/30/2020 6:41 AM NEPHROLOGY SOCIAL WORKER 1 patch Behind Right Ear documented in this encounter Historical Medications * This list may reflect changes made after this encounter. denosumab (XGEVA) 120 mg/1.7 mL (70 mg/mL) injection Inject under the skin every 30 (thirty) days 11/13/2021 octreotide (SandoSTATIN) 50 mcg/mL (1 mL) syringe every 30 (thirty) days 04/09/2016 11/13/2021 added in this encounter Active and Recently Administered Medications Times are shown in NEPHROLOGY SOCIAL WORKER. Scheduled Medication Order 05/28/2020 05/29/2020 05/30/2020 scopolamine patch 72 hour 1 patch 1 patch, transdermal, Administer over 72 Hours, Every 72 hours, First dose on Sat05/30/20 at 0645, For 1 dose, Pre-Op, Apply to Dr. Fink's patients, as well as to beach-chair position shoulder surgery patients, and to patients with a history of PONV and/or Motion Sickness. Do NOT administer to patients with a history of BPH or Glaucoma. Consult Anesthesiologist with any questions. In case of Urinary Retention, remove patch immediately and clean patch site with Alcohol., Indications: Motion Sickness, Prevention of Motion Sickness, Prevention of Post-Operative Nausea and Vomiting 0641 (Medication Elyssa lied - Provider: Deyanira Wise RN)0856 (Due: Medication Removed - Provider: Automatic Discharge Provider - Comment: Time automatically adjusted from order being discontinued) Continuous Medication Order 05/28/2020 05/29/2020 05/30/2020 Lactated Ringer's (LR) infusion 30 mL/hr, intravenous, Continuous, Starting on Sat05/30/20 at 0645, Pre-Op, Use a 500 ml bag for End Stage Renal Disease Patients 0639 (New Bag - Prov ider: Deyanira Wise RN)0743 (Rate/Dose Change - Provider: Loc Saleem CRNA) Lactated Ringer's (LR) infusion 125 mL/hr, intravenous, Continuous, Starting on Sat05/30/20 at 0845, Phase I 0845 (Due) PRN Medication Order 05/28/2020 05/29/2020 05/30/2020 acetaminophen (TYLENOL) tablet 500 mg 500 mg, oral, As needed, headaches, other, Breakthrough Pain and Supplement to other pain meds, Starting on Sat05/30/20 at 0802, For 2 doses, Phase I, When able to tolerate PO after consulting with Anesthesiologist., Indications: Pain bupivacaine (MARCAINE) 0.25 % (2.5 mg/mL) preservative free injection (CANCELED) As needed, Starting on Sat05/30/20 at 0754, Intra-Op 0754 (Given - Provid er: Thea Reeves MD) diphenhydrAMINE (BENADRYL) injection 12.5 mg 12.5 mg, intravenous, Administer over 1 Minutes, Every 5 min PRN, itching, other, For Nausea, administer 25 mg IV., Starting on Sat05/30/20 at 0802, For 4 doses, Phase I, Max cumulative dose 50 mg., Indications: Itching fentaNYL (SUBLIMAZE) preservative free injection 25 mcg 25 mcg, intravenous, Every 5 min PRN, 1st line for pain, uncontrolled pain on PACU admission for outpatients, Starting on Sat05/30/20 at 0802, For 4 doses, Phase I, Use as 1st line for outpatients, dose not to exceed 100 mics. Then proceed to second line at [facility] after consulting anestheiologist, Indications: Pain HYDROcodone-acetaminophen (NORCO) 5-325 mg per tablet 1 tablet 1 tablet, oral, Every 20 min PRN, 3rd line for pain, breakthrough pain, May give TWO doses at the same time for severe pain after consulting with Anesthesiologist, Starting on Sat05/30/20 at 0802, For 2 doses, Phase I, When able to tolerate PO., Indications: Pain HYDROmorphone (DILAUDID) injection 0.2 mg 0.2 mg, intravenous, Administer over 2 Minutes, Every 5 min PRN, 2nd line for pain, Use as 1st line pain med for patients at [facility]. Use as 2nd line at [facility] after consulting with anesthesiologist., Starting on Sat05/30/20 at 0802, Phase I, Notify Anesthesiologist if total PACU dose reaches 2 mg for inpatients and 1 mg total for outpatients, and pain score 5/10 or more., Indications: Pain labetaloL (NORMODYNE,TRANDATE) injection 5 mg 5 mg, intravenous, Every 5 min PRN, high blood pressure, Starting on Sat05/30/20 at 0802, For 4 doses, Phase I, Max cumulative dose 20 mg. Dose if systolic blood pressure greater than 180 AND HR greater than 70. meperidine (DEMEROL) preservative free injection 12.5 mg 12.5 mg, intravenous, Every 10 min PRN, shivering, Starting on Sat05/30/20 at 0802, For 2 doses, Phase I, Max cumulative dose 25 mg., Indications: Shivering naloxone (NARCAN) 0.4 mg/mL injection 0.04-0.4 mg 0.04-0.4 mg, intravenous, Once as needed, other, excessive sedation/respiratory depression, Starting on Sat05/30/20 at 0802, For 1 dose, Phase I, Dilute 0.4 mg with 9 mL NS (final concentration 0.04 mg/mL). For respiratory depression (respiratory rate less than 6), administer 0.4 mg IVP over 30 seconds. For excessive sedation administer 0.04 mg (1 mL) every 1 minute until desired level of alertness. Consult with Anesthesiologist before administration. Administer 40 mics at a time. For IV, administer over 30 seconds., Indications: Opioid Toxicity ondansetron (ZOFRAN) injection 4 mg 4 mg, intravenous, Administer over 2 Minutes, Once as needed, nausea, vomiting, Starting on Sat05/30/20 at 0802, For 1 dose, Phase I, Proceed to prochlorperazine if ondansetron has been given within the last 6 hours. prochlorperazine (COMPAZINE) injection 5 mg 5 mg, intravenous, Every 10 min PRN, nausea, vomiting, Check with Anesthesiologist before administring, and ask about IV versus IM., Starting on Sat05/30/20 at 0802, For 2 doses, Phase I, If nausea/vomiting not relieved by ondansetron within 30 minutes or if ondansetron has been given within the last 6 hours. sodium chloride 0.9 % irrigation (CANCELED) As needed, Starting on Sat05/30/20 at 0751, Intra-Op 0751 (Given - Provid er: Thea Reeves MD) documented in this encounter Orders Medications Ordered That Brett ht Not Have Been Administered Count Last Ordered Date First Ordered Date acetaminophen (TYLENOL) tablet 500 mg 1 bupivacaine (MARCAINE) 0.25 % (2.5 mg/mL) preservative free injection 1 05/30/2020 diphenhydrAMINE (BENADRYL) i njection 12.5 mg 1 05/30/2020 fentaNYL (SUBLIMAZE) preserv ative free injection 25 mcg 1 05/30/2020 HYDROcodone-acetaminophen (N ORCO) 5-325 mg per tablet 1 tablet 1 05/30/2020 HYDROmorphone (DILAUDID) injection 0.2 mg 1 05/30/2020 labetaloL (NORMODYNE,TRANDAT E) injection 5 mg 1 05/30/2020 Lactated Ringer's (LR) infusion 1 0 lidocaine PF (XYLOCAINE) 10 mg/mL (1 %) preservative free injection 2-10 mg 1 05/30/2020 meperidine (DEMEROL) preserv ative free injection 12.5 mg 1 05/30/2020 naloxone (NARCAN) 0.4 mg/mL injection 0.04-0.4 mg 1 05/30/2020 ondansetron (ZOFRAN) injection 4 mg 1 05/30 prochlorperazine (COMPAZINE) injection 5 mg 1 05/30/2020 sodium chloride 0.9 % irrigation 1 05/30/20 20 sodium chloride 0.9% flush 0.5-20 mL 1 05/09 Diet Count Last Ordered Date First Orde red Date ADULT DISCHARGE DIET 1 05/30/2020 Nursing Count Last Ordered Date First Orde red Date DISCHARGE ACTIVITY 1 05/30/2020 DISCHARGE CALL PROVIDER 5 05/30/2020 DISCHARGE DRESSING 1 05/30/2020 documented in this encounter Care Teams Rattle Leak And Squeak Repairer Relationship Specialty Start Date End Date Julio César Briseno MD PCP - General 10/01/16 Eren Cr MD Referring Physician Medical Oncology 11/25/18 Yohana Bowen MD Radiation Oncologist Radiation Oncology 11/25/18 documented as of this encounter
--- OUTSIDE RECORDS SUMMARY | 2024-06-25 22:31 | XMS_ITS | Encounter Summary ---
Author Organization [facility] Healthcare Address [address] [place] [address] Care Team Providers Care Web Content & Social Media Manager Name Role Phone Julio César Briseno MD Primary Care Provider [phone] Eren Cr MD Unavailable [phone] Yohana Bowen MD Unavailable Encounter Details Date Type Department Care Team (Late st Contact Info) Description 05/30/2020 7:41 AM EGG SORTER Anesthesia Event [facility] Operating Room [address] [place] [address] Konrad Leonard MD [address] [place] [address] Boy Zavaleta MD [address] [place] [address] Anesthesia Record Procedure Summary Procedure Name Responsible Anesthesiologist Anesthesia Start Time Anesthesia Stop Time EXAM UNDER ANESTHESIA - RECTUM (Anus) Konrad Leonard MD 05/30/20 0741 05/30/20 0806 Events Date Time Event Comment 05/30/2020 0606 In Preop 0654 0728 AN Equip Check 0741 An Start 0743 In Room 0743 An Start Data 0745 Start Supplemental O2 0747 An Induction The patient was reevaluated immediately before moderate or deep sedation use and before anesthesia induction. 0749 Anesthesia Ready 0750 Proc Start 0753 Proc Fin 0759 an stop data 0759 Out of Room 0806 Handoff to RN I completed my handoff [...] disposition at the time of handoff: PACU 0806 An Stop Meds Name Total fentaNYL PF 50 mcg lidocaine 1 % PF 50 mg propofol 100 mg propofol 80.54 mg Lactated Ringer's (LR) infusion 0 mL * Agents Name O2 Isoflurane Inspired Isoflurane * Blood No blood administrations on file. Lines, Drains, and Airways Type Details Placement Removal Colostomy Retired 04/13/19; 1825; End; RLQ 04/13/19 1825 by Thais Julio RN RETIRED Surgical Site 04/13/19; 1555; Abdomen; wound/ostomy following last assessment 04/28/19; 06/09/24 (Retired LDA, Removed/Completed by [employer] with LDA Utility); 1213 (Retired LDA, Removed/Completed by [employer] with LDA Utility) 04/13/19 1555 by Adelita Barba RN 06/09/24 1213 by Discharge Provider, Automatic RETIRED Surgical Site 05/06/19; No; Mid-line; Abdomen; distal; 06/09/24 (Retired LDA, Removed/Completed by [employer] with LDA Utility); 1213 (Retired LDA, Removed/Completed by [employer] with LDA Utility) 05/06/19 0000 by Misa Barrow RN 06/09/24 1213 by Discharge Provider, Automatic Peripheral IV Placement Date: 05/30/20; Placement Time: 0639; Catheter Size: 20 G; Orientation: Right; Location: Forearm; Site Prep: Chlorhexidine; Insertion Attempts: 2; Patient Tolerance: Tolerated well; Removal Date: 05/30/20; Removal Time: 0843 05/30/20 0639 by Deyanira Wise RN 05/30/20 0843 by Birgit Rain RN RETIRED Surgical Site 05/30/20; 0728; Simran-anal; 05/30/20; 0734 05/30/20 0728 by Joelle Quijano RN 05/30/20 0734 by Joelle Quijano RN documented in this encounter Social History Tobacco Use Types Packs/Day Years Used Date Smoking Tobacco: Never Smokeless Tobacco: Never Alcohol Use Standard Drinks/Week Comments Yes 1 (1 standard drink = 0.6 oz pur e alcohol) Comments No Sex and Gender Information Value Date Recorded Sex Assigned at Not on file Legal Sex Female 2:41 PM EGG SORTER Gender Identity Not on file Sexual Orientation Straight 02/19/2021 9: 29 AM CDT Occupation Industry Job Start Date Job End Date retired Not on file Not on file Not on file documented as of this encounter OR Notes * Anesthesia Postprocedure Evaluation - Konrad Leonard MD - 05/30/2020 11:35 AM CST Patient: La Chung Procedure Summary Date: 05/30/20 Room / Location: [facility] OPERATING ROOM 03 / [facility] OPERATING ROOM Anesthesia Start: 740 Anesthesia Stop: 805 Procedures: EXAM UNDER ANESTHESIA - RECTUM (N/A Anus) FULGURATION PARASTOMAL EPITHELIAL HYPERPLASIA (N/A Abdomen) 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]) Surgeons: Greyson Reeves MD Responsible Provider: Konrad Leonard MD Anesthesia Type: general ASA Status: 3 Anesthesia Type: general Last vitals BP 164/74 Pulse 72 Temp 36.1 ??C (97 ??F) (Temporal) Resp 13 SpO2 95% Anesthesia Post Evaluation Patient location during evaluation: PACU Patient participation: complete - patient participated Level of consciousness: fully awake Pain score: 2 Pain management: adequate Airway patency: adequate Evidence of recall: no Anesthetic complications: no Cardiovascular status: hemodynamically stable Respiratory status: acceptable Hydration status: euvolemic Pt is: normothermic Nausea/Vomiting status: none SORTER * Anesthesia Preprocedure Evaluation - Konrad Leonard MD - 05/25/2020 10:21 AM CST Images from the original note were not included. [facility] Planning Preoperative Evaluation Record Evaluation type/location: TPAP from [facility] Planned procedure site: [facility] OR Date: 05/25/20 NOTE: This note represents a preoperative evaluation initiated via telephone interview. NO PHYSICALEXAM was performed at the time of initial assessment. A physical exam may be added to this note anddocumented below. Anesthesia Evaluation La Chung is a 69 y.o. 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 Neurological + Psychiatric history - anxiety Pertinent negatives: seizures; CVA/stroke and TIA Cardiovascular + Hypertension + Hyperlipidemia + CAD Pertinent negatives: NV ; valvular heart disease; atrial fibrillation; arrhythmia; pacemaker/ICD; PVD; DVT/PE and negative for CHF Respiratory Pertinent negatives: COPD; asthma; sleep apnea (KYLER) and non-smoker Hepatic / Heme + Liver disease (mets to liver) + History of thrombocytopenia (mild TCP - last plts 135K) Pertinent negatives: history of anemia and history of Yolande positive Gastrointestinal Pertinent negatives: GERD Renal / Pertinent negatives: renal disease Musculoskeletal/Pain + Chronic pain (abdominal cramping- left side side - ocassonial ) + Headaches (occasional preop r/t anxiety/being NPO) - migraine headaches. Endocrine / Other + Obesity (BMI >30) + Cancer history- current cancer and metastatic cancer. Cancer type: + metastatic ileal neuroendocrine tumor - pulmonary nodules, liver lesions, omental lesion, and RP LAD. Pertinent negatives: diabetes mellitus and thyroid disease Comments: + Neuroendocrine tumor - Chromogranin A level 03/30/2019 = 203 (prev. 232). On short acting octreotide PRN for sx malignancy-induced hypercalcemia hx. Most recent Ca 10.3 Functional Capacity Functional capacity: <4 METs Comments: Stable mild MARTINEZ when climbing flight of stairs. Was recently able to mow yard and paint agarage w/o sx. Denies episodes of CP Review of Systems + productive cough (occasional r/t allergies- ) + chest pain (currently r/t NG tube (throat, chest - constant. Exacerbated by swallowing). NO pain prior to NG tube. ) + previous transfusion (w/ prior surgery 09/2015) + bleeding problems (peristomal bleeding ) + dizziness (occasional w/ quick position changes, allergic rhinitis) + chronic pain (abdominal cramping- left side side - ocassonial ) + nausea/vomiting (prior to admission) + diarrhea (prior to onset of bowel obstruction) + abdominal pain (Patient has Overactie bladder- has urgency with incontinence at night ) + unexpected wt change Pertinent negatives: wheezing; SOB; recent cold/flu; fever; palpitations; orthopnea; pedal edema; PND; heavy menses; transfusion reaction; melena/hematochezia; easy bruising; syncope; hard of hearing; vision loss; heartburn; dysphagia; dentures/partials; chipped/loose teeth and diaphoresis Comments: + intermittent flushing episodes previously- last occured 04/10 - lasted approx 30 seconds. Took 1 dose octreotide 04/10 Receives octreotide injection once per month-has not used PRN at home PAT Summary and Plans Cardiac risk classification of planned procedure: low cardiac risk. Preoperative assessment status: complete. Initial preoperative evaluation discussed with: Manny White MD Additional comments: La Chung is a 69 y.o. female who is being evaluated prior to undergoing alow cardiac risk surgery. Revised Cardiac Risk Index factors are (none) for a total RCRI of 0 out of 6. Functional capacity is <4 METs (specifically: Mild KARISHMA- chronic patient feels 2/2 inactivity). Obstructive sleep apnea (KYLER) screening status is STOP-Bang=2 suggesting low risk for KYLER. Blood bank needs for day of procedure: No type and screen needed Pending labs/tests include: none This assessment was performed via telephone. Therefore the physical exam has been deferred to the day of surgery team. The patient was provided with preoperative instructions for their medications. The patient was instructed to shower/bathe the night prior and the morning of the planned procedure using an antibacterial soap. Patient instructions were provided by telephone. Patient verbalized understanding of preoperative plan. >> patient receives monthly Octreotide injections ( last 05/09/2020) and is prescribed PRN Octreotide. She state she has not used home PRN dose >>> FAMILY HISTORY OF MALIGNANT HYPERTHERMIA <<<< - questionable episode in juan josé arreola . Patient and her daughter denies any history of anesthesia or surgery problems except for PONV. Patient with No known exposure to COVID19 and no concerning symptoms of COVID19. Plan for pre-procedure COVID19 testing: Surgery date greater than 4 days from today. Request placed for pre-procedure COVID19 testing to be performed on 05/27/2020. [facility] will contact patient to schedule testing. TPAP complete Preoperative evaluation performed by Mayank Feliciano NP on 05/25/20 at 10:21 AM. . Patient Active Problem List Diagnosis ??? Neuroendocrine carcinoma (CMS/HCC) ??? 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 Neuro-endocrine carcinoma (CMS/HCC) ??? Bone metastasis (CMS/HCC) ??? Large bowel obstruction (CMS/HCC) ??? Hypocalcemia ??? ANNE-MARIE (acute kidney injury) (CMS/HCC) ??? Acute blood loss anemia ??? 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 Epithelial hyperplasia ??? Abdominal pain ??? [...] Shoulder joint pain ??? Colostomy complication, unspecified (CMS/HCC) ??? Pseudoepitheliomatous hyperplasia Past Medical History: Diagnosis Date ??? Cancer [...] ??? JOINT REPLACEMENT Left 2014 ? ? AK REMOVAL OF TONSILS,<12 Y/O Tonsillectomy - (Added by TW Conv) ??? AK TOTAL ABDOM HYSTERECTOMY Hysterectomy - (Added by Conv) OB History 6 Para 4 Term 4 0 AB 2 Living 4 SAB 2 TAB Ectopic Multiple Live Births Allergies Allergen Reactions ??? Ezetimibe-Simvastatin Muscle pain and Unknown Muscle weakness ??? Ramipril Cough Med List Status: Nurse Complete Set By: Yvonne Torres RN at 05/24/2020 12:52 PM Taking? Last Dose Start Date End Date Provider ascorbic acid, vitamin C, 500 mg capsule 07/04/16 -- Levon Kee MD cholecalciferol (VITAMIN D-3) 2,000 unit capsule 04/25/19 -- Laura Loeps MD Take 1 capsule (2,000 Units total) by mouth daily Patient taking differently: Take 6,000 Units by mouth news librarian before breakfast cholestyramine (QUESTRAN) 4 gram packet () 09/04/19 05/24/20 Greyson Reeves MD Take 1 packet by mouth 3 (three) times a day with meals clotrimazole-betamethasone (LOTRISONE) cream -- -- Levon Kee MD coenzyme U90-brfiteu E (CO Q-10, WITH VIT E,) 100-5 mg-unit capsule -- -- Levon Kee MD denosumab (XGEVA) 120 mg/1.7 mL (70 mg/mL) injection -- -- Levon Kee MD DULoxetine DR (CYMBALTA) 30 mg capsule 04/24/19 -- Laura Lopes MD Take 1 capsule (30 mg total) by mouth daily Patient taking differently: Take 30 mg by mouth news librarian before breakfast fluticasone propionate (FLONASE) 50 mcg/actuation nasal spray -- -- Levon Kee MD gabapentin (NEURONTIN) 600 mg tablet 11/16/19 11/15/20 Eren Cr Jr., MD Take 1 tablet (600 mg total) by mouth 3 (three) times a day Notes: Acct [id number],Please expedite to patient montelukast (SINGULAIR) 10 mg tablet -- -- Levon Kee MD octreotide (SandoSTATIN) 50 mcg/mL (1 mL) syringe 04/09/16 -- Levon Kee MD olmesartan-hydrochlorothiazide (BENICAR HCT) 20-12.5 mg per tablet 05/14/19 -- Levon Kee MD ondansetron (ZOFRAN) 8 mg tablet 08/05/19 -- Yohana Bowen MD Take 1 tablet (8 mg total) by mouth every 8 (eight) hours as needed for nausea or vomiting ostomy supplies misc 09/21/19 -- Greyson Reeves MD Patient has colostomy and needs Cavilon 3M skin barrier film to manage. oxybutynin (DITROPAN) 5 mg tablet () 04/24/19 05/24/20 Laura Lopes MD Take 1 tablet (5 mg total) by mouth 2 (two) times a day for 14 days simvastatin (ZOCOR) 20 mg tablet -- -- Levon Kee MD triamcinolone (KENALOG) 0.1 % ointment 05/06/20 -- Po Newberry MD PhD Apply to itchy rash on hands twice daily until improved No current facility-administered medications for this encounter. Current Outpatient Medications: ??? ascorbic acid, vitamin C, 500 mg capsule ??? cholecalciferol (VITAMIN D-3) 2,000 unit capsule ??? cholestyramine (QUESTRAN) 4 gram packet ??? clotrimazole-betamethasone (LOTRISONE) cream ??? coenzyme S12-woehsvo E (CO Q-10, WITH VIT E,) 100-5 [...] ??? ondansetron (ZOFRAN) 8 mg tablet ??? ostomy supplies misc ??? oxybutynin (DITROPAN) 5 mg tablet ??? simvastatin (ZOCOR) 20 mg tablet ??? triamcinolone (KENALOG) 0.1 % ointment Facility-Administered [...] TW Conv) ??? Other (old age) Mother There were no vitals filed for this visit. PT: No results found for requested labs within last 720 hours. INR: No results found for requested labs within last 720 hours. APTT: No results found for requested labs within last 720 hours. Hgb A1C: No results found for requested labs within last 720 hours. CBC RBC: 05/09/2020: 4.26 M/cumm RDW: No results found for requested labs within last 720 hours. MCHC: 05/09/2020: 34.5 g/dL MCH: 05/09/2020: 31.9 pg MCV: 05/09/2020: 92.5 fL Hct: 05/09/2020: 39.4 % Hgb: 05/09/2020: 13.6 g/dL WBC: 05/09/2020: 5.3 K/cumm MPV: 05/09/2020: 7.5 fL Platelets: 05/09/2020: 136 K/cumm* RDW CV: 05/09/2020: 13.4 % RDW Sd: No results found for requested labs within last 720 hours. BMP Glucose: 05/09/2020: 121 mg/dL Calcium: 05/24/2020: 10.3 mg/dL Sodium: 05/09/2020: 142 mmol/L Potassium: 05/09/2020: 4.3 mmol/L CO2: 05/09/2020: 28 mmol/L Chloride: 05/09/2020: 108 mmol/L BUN: 05/09/2020: 12 mg/dL Creatinine: 05/09/2020: 0.82 mg/dL Cheri index score: 80 DOS Physical Exam Medical history, medications, and allergies reviewed. Attestation: This PAT evaluation Airway Exam: Mallampati: II Cervical ROM: FROM Cardiovascular Exam: Rate: regular Rhythm: regular Pulmonary Exam: LCTA, bilat Anesthesia Plan ASA 3 My patient is approved for the Anesthesia Controlled Medication protocol when under care of a ELECTRICAL ENGINEERING DIRECTOR Planned anesthesia: General Informed Consent: Anesthesia plan and risks discussed with patient. Consent and Attending signature: I and/or my designee have discussed the anesthesia plan, benefits, possible alternatives, parental presence at time of induction (if indicated), and clinically relevant risks that may include dental injury, unintentional awareness, and/or other complications. The patient and/or parent/legal guardian understand, and agree to proceed. All questions answered. SORTER SORTER documented in this encounter Plan of Treatment Not on file documented as of this encounter Visit Diagnoses Not on filedocumented in this encounter Administered Medications Inactive Administered Medications - up to 3 most recent administrations Medication Order MAR Action Action Date Dose Rate Site fentaNYL (SUBLIMAZE) preservative free injection intravenous, As needed, Starting on Sat05/30/20 at 0741, Anesthesia Intra-op Given 05/30/2020 7:41 AM EGG SORTER 50 mcg Lactated Ringer's (LR) infusion 30 mL/hr, intravenous, Continuous, Starting on Sat05/30/20 at 0645, Pre-Op, Use a 500 ml bag for End Stage Renal Disease Patients Rate/Dose Change 05/30/2020 7:43 AM EGG SORTER 50 mL/hr New Bag 05/30/2020 6:39 AM EGG SORTER 30 mL/hr 30 mL/hr lidocaine PF (XYLOCAINE) 10 mg/mL (1 %) preservative free injection As needed, Starting on Sat05/30/20 at 0746, Anesthesia Intra-op Given 05/30/2020 7:46 AM EGG SORTER 50 mg propofoL (DIPRIVAN) IV intravenous, As needed, Starting on Sat05/30/20 at 0746, Anesthesia Intra-op Given 05/30/2020 7:51 AM EGG SORTER 20 mg Given 05/30/2020 7:50 AM EGG SORTER 20 mg Given 05/30/2020 7:48 AM EGG SORTER 20 mg propofoL (DIPRIVAN) IV intravenous, Continuous PRN, Starting on Sat05/30/20 at 0747, Anesthesia Intra-op New Bag 05/30/2020 7:47 AM EGG SORTER 120 mcg/kg/min 60.41 mL/hr documented in this encounter Care Teams Web Content & Social Media Manager Relationship Specialty Start Date End Date Julio César Briseno MD PCP - General 10/01/16 Eren Cr MD Referring Physician Medical Oncology 11/25/18 Yohana Bowen MD Radiation Oncologist Radiation Oncology 11/25/18 documented as of this encounter
--- OUTSIDE RECORDS SUMMARY | 2024-06-25 22:31 | XMS_ITS | Encounter Summary ---
Author Organization [facility] Address [address] [place] [address] Care Team Providers Care Professional Healthcare Representative Name Role Phone Julio César Briseno MD Primary Care Provider [phone] Eren Cr MD Unavailable [phone] Yohana Bowen MD Unavailable Encounter Details Date Type Department Care Team (Late st Contact Info) Description 05/24/2020 Telephone [facility] Testing Site - [facility]. [address] [place] [address] Thea Reeves MD [address] [facility] [id number] [place] [address] Social History Tobacco Use Types Packs/Day Years Used Date Smoking Tobacco: Never Smokeless Tobacco: Never Alcohol Use Standard Drinks/Week Comments Yes 1 (1 standard drink = 0.6 oz pur e alcohol) Comments No Sex and Gender Information Value Date Recorded Sex Assigned at Not on file Legal Sex Female 2:41 PM CRNA Gender Identity Not on file Sexual Orientation Straight 02/19/2021 9: 29 AM CDT Occupation Industry Job Start Date Job End Date retired Not on file Not on file Not on file documented as of this encounter Miscellaneous Notes * Addendum Note - Mitesh Chaudhari - 05/27/2020 2:57 PM CSTAddended by: MITESH CHAUDHARI on: 05/27/2020 02:57 PM Modules accepted: Orders * Telephone Encounter - Tracey Santos - 05/24/2020 1:31 PM CST Auth Provider: THEA REEVES Provider: ?? Diagnosis: ?? Department: ?? Sched Instruct: ?? Comment: [facility]ley Order Specific Questions Question Answer Comment Testing types: Pre-procedure ?? Date of Px/chemo/treatment/placement/transfer 05/30/2020 ?? Testing site patient will be sent to: [facility] ?? Date testing requested: 05/27/2020 ?? Testing: COVID-RNA ?? Is this the first COVID-19 test for this patient? No ?? Does the patient currently work in a healthcare facility with direct patient contact? No ?? Is the patient a resident of a congregate care or living setting? No ?? Is the patient ? No ?? Please select the performing region: [facility] documented in this encounter Plan of Treatment Not on file documented as of this encounter Results * COVID-19 Coronavirus RNA Nasopharyngeal (05/27/2020 9:36 AM CRNA) COVID-19 RNA Not Detected [facility] Comment: Interpretive Data Testing performed at [facility] Molecular Infectious Disease Laboratory. The 2019-Novel Coronavirus Assay (COVID-19) Real Time RT-PCR assay is for in vitro diagnostic use under FDA emergency use authorization only. A negative RT-PCR result does not preclude infection with COVID-19 and should not be used as the sole basis for treatment or other patient management decisions. Additional sample types have been validated according to CLIA regulations. ?? Current Interpretive Data was last revised on 2019. First COVID-19 test? No [facility] Employeed in healthcare? No [facility] status? No [facility] Group care resident? No [facility] Hospitalized? No [facility] Is patient in ICU? No [facility] Symptomatic as defined by CDC? No [facility] Nasopharyngeal 05/27/2020 9: 36 AM CRNA 05/28/2020 8:36 AM CRNA Narrative JASON BLACK - 05/29/2020 6:35 AM CRNA What is the reason for testing?->Screening prior to scheduled procedure or surgery Thea Reeves MD LAB MICROBIOLOGY - GENERAL O RDERABLES Final Result [facility] [address] [facility] Department [place] [address] documented in this encounter Visit Diagnoses Diagnosis Pre-procedure lab exam- Primary Pre-procedural laboratory examination Pre-procedure lab exam Pre-procedural laboratory examination documented in this encounter Care Teams Professional Healthcare Representative Relationship Specialty Start Date End Date Julio César Briseno MD PCP - General 10/01/16 Eren Cr MD Referring Physician Medical Oncology 11/25/18 Yohana Bowen MD Radiation Oncologist Radiation Oncology 11/25/18 documented as of this encounter
--- OUTSIDE RECORDS SUMMARY | 2024-06-25 22:31 | XMS_ITS | Encounter Summary ---
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) Procedures CT Chest Abdomen W Contrast Eren Cr MD [address] [place] [address] Phone: tel: fax: [address] [phone] Referral ID Status Reason Start Date Expiration Date Visits Re quested Visits Authorized [id number] Closed 05/09/2020 06/08/2021 1 1 ENT CHECKER * MRI/CAT/PET Scan (Routine) - Closed Specialty Diagnoses / Procedures Referred By Contac t Referred To Contact Radiology Diagnoses Neuro-endocrine carcinoma (HCC) Bone metastasis Malignant neoplasm metastatic to liver (HCC) Procedures CT soft tissue neck with contrast Eren Cr MD [address] [facility] [address] [place] [address] Phone: tel: fax: [address] [phone] Referral ID Status Reason Start Date Expiration Date Visits Re quested Visits Authorized [id number] Closed 05/09/2020 06/08/2021 1 1 ENT CHECKER 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) Procedures NC OCTREOTIDE INJECTION, DEPOT Octreotide 28 Day Cycles - Carcinoid Eren Cr MD [address] [facility] [address] [place] [address] Phone: tel: fax: [address] [phone] Phone: tel: fax: Referral ID Status Reason Start Date Expiration Date V isits Requested Visits Authorized [id number] Authorized 11/28/2017 02/05/2025 1 150 Encounter Details Date Type Department Care Team (Late st Contact Info) Description 05/09/2020 3:00 PM CONTENT CHECKER Office Visit [facility] [address] [place] [address] 7th [place] [address] [place] [address] Eren Cr MD [address] [facility] [address] [place] [address] Neuro-endocrine carcinoma (CMS/HCC) (Primary Dx); Bone metastasis (CMS/HCC); Malignant neoplasm metastatic to liver (CMS/HCC); Neuroendocrine carcinoma (CMS/HCC) Social History Tobacco Use Types Packs/Day Years Used Date Smoking Tobacco: Never Smokeless Tobacco: Never Alcohol Use Standard Drinks/Week Comments Yes 1 (1 standard drink = 0.6 oz pur e alcohol) Comments No Sex and Gender Information Value Date Recorded Sex Assigned at Not on file Legal Sex Female 2:41 PM CONTENT CHECKER Gender Identity Not on file Sexual Orientation Straight 02/19/2021 9: 29 AM CDT Occupation Industry Job Start Date Job End Date retired Not on file Not on file Not on file documented as of this encounter Last Filed Vital Signs Vital Sign Reading Time Taken Comments Blood Pressure 148/76 05/09/2020 3:11 PM CONTENT CHECKER Pulse 93 05/09/2020 3:11 PM CONTENT CHECKER Temperature 36.9 ??C (98.4 ??F) 05/09/2020 3:11 PM CS T Respiratory Rate 16 05/09/2020 3:11 PM CONTENT CHECKER Oxygen Saturation 96% 05/09/2020 3:11 PM CONTENT CHECKER Inhaled Oxygen Concentration - - Weight 83 kg (183 lb) 05/09/2020 3:11 PM CONTENT CHECKER Height - - Body Mass Index 32.42 04/14/2020 1:49 PM CDT documented in this encounter Progress Notes * Eren Cr Jr., MD - 05/09/2020 3:00 PM CST La Chung : 1950 DATE OF VISIT: 05/09/20 Cancer Staging Malignant neoplasm metastatic to liver [...] time, she also underwent right colectomy in [facility] OR by Dr. Greyson [...] and conspicuity of multiple bilateral lung nodules. 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) Active Treatment & Therapy Plans for La Chung Oncology Chemotherapy Treatment: Octreotide 28 Day Cycles - Carcinoid Current day: Day 1, Cycle 27 (Planned for 05/09/2020) Following planned day: Day 1, Cycle 28 (Planned for 06/06/2020) Oncology Supportive Care: DENOSUMAB (XGEVA) INJECTION Current treatment: Treatment 2 (Planned for 04/27/2019) Following planned treatment: Treatment 3 (Planned for 05/25/2019) INTERVAL HISTORY Ms. La Chung is a 69 y.o. Non- female with a history of neuroendocrine tumor who presents for follow-up routine oncologic care. She had anther set of scans showing stability of her metastatic sites. She also has a C7 and a left humerus lesion which was noted on her PET dotatate but notin her Xray. She was seen by Dr. Bowen and she does not want radiation at this point. She states thatshe has mild pain when she is carrying things but this resolved when she put the things down. She notes less flushing and diarrhea. PAST MEDICAL HISTORY: Past Medical History: Diagnosis Date ??? Cancer (CMS/HCC) ??? Family history of malignant hyperthermia grandson - questionable ??? GERD (gastroesophageal reflux disease) ??? Hypercholesteremia ??? Hypertension ??? Motion sickness ??? Personal history of other diseases of the digestive system History of hemorrhoids - (Added by TW Conv) ??? PONV (postoperative nausea and vomiting) PAST SURGICAL HISTORY: Past Surgical History: Procedure [...] > 5 YEARS N/A 08/04/2019 ? ? NC REMOVAL OF TONSILS,<12 Y/O Tonsillectomy - (Added by TW Conv) ??? NC TOTAL ABDOM HYSTERECTOMY Hysterectomy - (Added by TW Conv) ALLERGIES: Allergies Allergen Reactions ??? Ezetimibe-Simvastatin Muscle pain and Unknown Muscle weakness ??? Ramipril Cough CURRENT MEDICATIONS: Current Outpatient Medications: ??? ascorbic acid, vitamin C, 500 mg capsule, Take 1 tablet by mouth., Disp: , Rfl: ??? cholecalciferol (VITAMIN D-3) 2,000 unit capsule, Take 1 capsule (2,000 Units total) by mouth daily (Patient taking differently: Take 5,000 Units by mouth 3 (three) times a day ), Disp: 30 capsule, Rfl: 2 ??? clotrimazole-betamethasone (LOTRISONE) cream, clotrimazole-betamethasone 1 %-0.05 % topical cream APPLY EXTERNALLY TO ABDOMEN TWICE DAILY NEEDED, Disp: , Rfl: ??? DULoxetine DR (CYMBALTA) 30 mg capsule, Take 1 capsule (30 mg total) by mouth daily, Disp: 30 capsule, Rfl: 2 ??? fluticasone propionate (FLONASE) 50 mcg/actuation nasal spray, fluticasone propionate 50 mcg/actuation nasal spray,suspension, Disp: , Rfl: ??? gabapentin (NEURONTIN) 600 mg tablet, Take 1 tablet (600 mg total) by mouth 3 (three) times a day, Disp: 90 tablet, Rfl: 11 ??? montelukast (SINGULAIR) 10 mg tablet, montelukast 10 mg tablet, Disp: , Rfl: ??? olmesartan-hydrochlorothiazide (BENICAR HCT) 20-12.5 mg per tablet, Take 0.5 tablets by mouth daily decrease dosage to 0.5 tablet daily 05/14/[address] Briseno at office visit., Disp: , Rfl: ??? ostomy supplies [facility], Patient has colostomy and needs Cavilon 3M skin barrier film to manage., Disp: 20 each, Rfl: 6 ??? simvastatin (ZOCOR) 20 mg tablet, , Disp: , Rfl: ??? triamcinolone (KENALOG) 0.1 % ointment, Apply to itchy rash on hands twice daily until improved, Disp: 454 g, Rfl: 1 ??? cholestyramine (QUESTRAN) 4 gram packet, Take 1 packet by mouth 3 (three) times a day with meals, Disp: 270 packet, Rfl: 3 ??? coenzyme [id number] (CO Q-10, WITH VIT E,) 100-5 mg-unit capsule, , Disp: , Rfl: ??? ondansetron (ZOFRAN) 8 mg tablet, Take 1 tablet (8 mg total) by mouth every 8 (eight) hours as needed for nausea or vomiting (Patient not taking: Reported on 05/09/2020), Disp: 20 tablet, Rfl: 3 ??? oxybutynin (DITROPAN) 5 [...] Status: ECOG 1. Vital signs: Vitals BP 148/76 (BP Location: Right arm) Pulse 93 Temp 36.9 ??C (98.4 ??F) (Oral) Resp 16 Wt 83 kg (183 lb) SpO2 96% BMI 32.42 kg/m?? General: She is a 69 y.o. female and is in no acute [...] 24 hour(s)) Comprehensive metabolic panel Collection Time: 05/09/20 2:30 PM Result Value Ref Range Sodium 142 135 - 145 mmol/L Potassium, pl 4.3 3.3 - 4.9 mmol/L Chloride 108 97 - 110 mmol/L CO2 28 22 - 32 mmol/L Anion gap 6 2 - 15 mmol/L BUN 12 8 - 25 mg/dL Creatinine 0.82 0.60 - 1.10 mg/dL Glucose 121 70 - 199 mg/dL Calcium 11.1 (H) 8.5 - 10.3 mg/dL Bilirubin, total 0.4 0.1 - 1.2 mg/dL Protein, pl 7.2 6.5 - 8.5 g/dL Albumin 4.4 3.5 - 5.0 g/dL Alk phos 105 40 - 130 Units/L ALT 17 7 - 45 Units/L AST 22 10 - 45 Units/L CBC with auto differential Collection Time: 05/09/20 2:30 PM Result Value Ref Range WBC 5.3 3.8 - 9.8 K/cumm Hgb 13.6 12.1 - 15.1 g/dL Hct 39.4 36.1 - 44.3 % Plt 136 (L) 140 - 440 K/cumm MPV 7.5 6.8 - 10.4 fL RBC 4.26 3.90 - 5.00 M/cumm MCV 92.5 80.0 - 97.6 fL MCH 31.9 26.7 - 33.7 pg MCHC 34.5 32.7 - 35.5 g/dL RDW CV 13.4 11.8 - 14.6 % NRBC abs 0.01 0.00 - 0.01 K/cumm Differential, auto Collection Time: 05/09/20 2:30 PM Result Value Ref Range Neutrophil abs 3.8 1.8 - 6.6 K/cumm Lymphocyte abs 0.6 (L) 1.2 - 3.3 K/cumm Monocyte abs 0.8 0.2 - 1.2 K/cumm Eosinophil abs 0.1 0.0 - 0.5 K/cumm Basophil abs 0.0 0.0 - 0.2 K/cumm Neutrophil pct 72.8 % Lymphocyte pct 11.0 % Monocyte pct 14.7 % Eosinophil pct 1.1 % Basophil pct 0.4 % Hematology Lab History Some values may be hidden. Unless noted otherwise, only the newest values recorded on each date aredisplayed. Labs - Hematology Latest Ref Range 02/15/20 03/15/20 04/11/20 05/09/20 WBC 3.8 - 9.8 K/cumm 4.0 4.3 4.0 5.3 Total Hb, POC 12.1 - 15.1 g/dL 12.1 13.1 12.7 13.6 Hct 36.1 - 44.3 % 35.2 (A) 37.2 37.0 39.4 Plt 140 - 440 K/cumm 117 (A) 120 (A) 121 (A) 136 (A) Neutrophil abs 1.8 - 6.6 K/cumm 3.2 3.3 3.1 3.8 Lymphocytes, abs 1.2 - 3.3 K/cumm 0.3 (A) 0.4 (A) 0.4 (A) 0.6 (A) (A) Abnormal value Comments are available for some flowsheets but are not being displayed. Chem/LFT Lab History Some values may be hidden. Unless noted otherwise, only the newest values recorded on each date aredisplayed. Labs-Chem/LFT Latest Ref Range 02/15/20 03/15/20 04/11/20 05/09/20 Sodium 135 - 145 mmol/L 141 139 143 142 Creatinine 0.60 - 1.10 mg/dL 0.85 0.84 0.79 0.82 Bilirubin, total 0.1 - 1.2 mg/dL 0.4 0.4 0.3 0.4 AST 10 - 45 Units/L 19 22 21 22 ALT 7 - 45 Units/L 13 15 16 17 CrCl- Actual Body Weight (Cockcroft-Gault) 78.7 80.1 85.2 82.5 Comments are available for some flowsheets but are not being displayed. Tumor Marker History Some values may be hidden. Unless noted otherwise, only the newest values recorded on each date aredisplayed. Tumor Markers Latest Ref Range 12/21/19 02/15/20 03/15/20 04/11/20 Chromogranin A <93 ng/mL 238 (A) 249 (A) 274 (A) 250 (A) (A) Abnormal value Comments are available for some flowsheets but are not being displayed. IMAGES CT soft tissue neck with contrast Narrative: EXAMINATION: CT of the neck with contrast HISTORY: C7 lesion noted on PET scan, neuroendocrine tumor. TECHNIQUE: CT of the neck was performed according to standard protocol after the uneventful administration of intravenous contrast. Contrast information: 75 mL Optiray-350 COMPARISON: 01/25/20. FINDINGS: Review of the topogram demonstrates no abnormality. Interval increase in size of prominent right supraclavicular node (series 2, image 74). The muscles of the neck are normal. Vessels of the neck demonstrate normal course and caliber. Fascial planes are preserved and the deep spaces of the neck are normal. The visualized airway is widely patent. The base of the skull and the temporal bones are normal. Limited views of the brain including the cerebellum and brainstem are normal. The limited view of the [place] is unremarkable. The visualized portions of the orbits are normal. The spinal canal is normal in caliber. Intervertebral disk heights are normal. Limited examination of the superior thorax shows no pulmonary infiltrate, suspicious nodules, or pleural effusions. There is a sclerotic focus within the right C7 inferior articular facet and T1 pedicle which corresponds to increased activity uptake on recent DOTATATE PET/CT. Multiple subcentimeter left lobe thyroid nodules. A few subcentimeter paratracheal lymph nodes are indeterminate. Impression: 1. Right C7 inferior articular facet and T1 right pedicle sclerotic lesion corresponding to a focus of increased uptake on recent DOTATATE PET/CT. 2. Interval increase in size of suspicious right supraclavicular lymph node, recommend attention on follow-up. No other concerning lymph nodes are identified. Dictated by: Neto Silva M.D. The radiology attending physician has personally reviewed this study, and had reviewed and/or edited this written report and agrees with it. Electronically signed by: Wiliam Robles M.D, PHD CT Chest Abdomen Pelvis W Contrast Narrative: EXAMINATION: CT CHEST, ABDOMEN AND PELVIS WITH INTRAVENOUS CONTRAST TECHNIQUE: Standard CT of the chest, abdomen and pelvis was performed after the administration of intravenous contrast. Studies were performed after the administration of the following amount of Optiray 350: 100 mL HISTORY: Neuroendocrine carcinoma FINDINGS: Comparison is made to prior study of 01/25/2020 Chest: Note is made of a left aortic arch and an aberrant right subclavian artery. Mild basilar atelectasis is seen. Minimal nodularity is seen in the region of the oblique fissure on the left. This may represent a tiny lymph node and is without change compared to the prior study. Minimal groundglass is seen in the right base which is also unchanged. No supraclavicular, axillary or mediastinal lymphadenopathy. The heart size is at upper limit of normal but unchanged. There is no pleural or pericardial effusion. Again seen are capsular metastases. Are seen in the right subphrenic region without change example at slice position 82. Liver is diffusely fatty without change in parenchymal metastasis. An example is one in slice position 60 in segment 8 that measures 2.3 x 2.1 cm. Another lesion is seen within segment 2 which is not clearly seen before but may be a difference in technique. A capsular metastasis however is seen at slice position 4 without change compared to the prior study measuring 1 x 0.8 cm. The pancreas is unremarkable. She is status post a diverting colostomy. Note is made of tiny intraperitoneal omental metastases. These are seen at slice position -60 adjacent to the colon and are unchanged in the appearance when compared to the prior study. A bilobed lesion is seen at slice position -56 with minimal omentum unchanged when compared to the prior study. The graft an enhancing nodule is also seen adjacent to the right vaginal fornix which is without change. The urinary bladder is decompressed. Injections are seen adjacent to the urethra without change. No evidence for small bowel obstruction. Another tiny nodule in the peritoneum is seen anteriorly at slice position -116 without change. The bone windows do not demonstrate any osseous lesion. Impression: 1. Essentially no change in multiple hepatic metastases and omental metastases. Metastasis adjacent to the vaginal fornix is also unchanged. 2. No thoracic metastases. Electronically signed by: Fly Benavidez M.D. XR Humerus Left 2 or More Views Narrative: EXAMINATION: Left humerus 2 or more views HISTORY: Metastatic neuroendocrine tumor FINDINGS: 2 views of the left humerus are submitted for interpretation. Comparison is made to PET/CT January 25, 2020. There is no radiographically evident lesion of the left humerus. The known mid shaft lesion is occult on this examination. No fracture is seen. Impression: 1. Radiographically occult metastatic lesion in the left humerus. Electronically signed by: Petros Viveros M.D. IMPRESSION AND PLAN: Ms. La Chung is a 69 y.o. 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 We dsicussed her scans and herbone lesions. She stated that she is hesitant to receive xgeva because she had a bowel obstruction p reviously coincident to the time she had her xgeva previously. We reviewed the package insert for xgeva and bowel obstruction was not listed as one of the side effects. We discussed that her calcium level is 11.1. Side effects of xgeva discussed including jaw osteonecrosis And after much discussion, she stated she would like to proceed with xgeva today and also her octreotide injection. She wantsto have another scan in 3 months and see me then. ENT CHECKER documented in this encounter Plan of Treatment Not on file documented as of this encounter Results * CT Chest Abdomen W Contrast (08/01/2020 3:38 PM CONTENT CHECKER) Anatomical Region Laterality Modality Body N/A Computed Tomogra phy 08/01/2020 4:00 PM CONTENT CHECKER Impressions 08/01/2020 4:00 PM CONTENT CHECKER No significant change in multiple serosal hepatic metastases and omental metastatic disease. Electronically signed by: Cindy Llanes M.D. Narrative 08/01/2020 4:[address] of the chest and abdomen with [...] tissue neck with contrast (08/01/2020 3:38 PM CONTENT CHECKER) Anatomical Region Laterality Modality Head and Neck N/A Computed Tomogra phy 08/01/2020 4:39 PM CONTENT CHECKER Impressions 08/01/2020 5:17 PM CONTENT CHECKER 1. ??Unchanged sclerotic lesion within the inferior right C7 articular facet likely representing metastasis given dotatate uptake. 2. ??Unchanged prominent right supraclavicular lymph node. Dictated by: Michael Black M.D. The radiology attending physician has personally reviewed this study, and had reviewed and/or edited this written report and agrees with it. Electronically signed by: Elaine Sandoval M.D. Narrative 08/01/2020 5:17 PM CONTENT CHECKER EXAMINATION: CT of the neck with contrast [...] are normal. The limited view of the [place] is unremarkable. The visualized portions [...] are normal. The limited view of the [place] is unremarkable. The visualized portions [...] by: Elaine Sandoval M.D. Eren Cr MD [facility] CT PROCEDURES Final Resul t * (ABNORMAL) Chromogranin A (07/04/2020 3:30 PM CONTENT CHECKER) Chromogranin A 340(H) <93 ng/mL [facility] Comment: Impaired renal or hepatic function or treatment with proton pump inhibitors may result in artifactual elevations of Chromogranin A. ADDITIONAL INFORMATION This test was developed and its performance characteristics determined by [facility] in a manner consistent with CLIA [...] absence of malignant disease. Test Performed by: [facility] [place] [id number] [place] [address] Director Of Vocational Guidance: Immanuel Novak M.D. Ph.D.; CLIA# [id number] Blood specimen (specimen) 07/04/2020 3:30 PM CONTENT CHECKER 07/04/2020 4:17 PM CONTENT CHECKER us Eren Cr MD LAB BLOOD ORDERABLES Final Re sult [facility] Department [place] [address] * (ABNORMAL) Comprehensive metabolic panel (07/04/2020 3:30 PM CONTENT CHECKER) Sodium 141 135 - 145 mmol/L [facility] Comment:Testing performed by : [facility], [address] [place] [phone] Potassium, pl 4.1 3.3 - 4.9 mmol/L [facility] Comment:Testing performed by : [facility], [address] [place] [phone] Chloride 105 97 - 110 mmol/L [facility] Comment:Testing performed by : [facility], [address] [place] [phone] CO2 30 22 - 32 mmol/L [facility] Comment:Testing performed by : [facility], [address] [place] [phone] Anion gap 6 2 - 15 mmol/L [facility] Comment:Testing performed by : [address] [phone] BUN 15 8 - 25 mg/dL [facility] Comment:Testing performed by : [facility], [address] [place] [phone] Creatinine 1.11(H) 0.60 - 1.10 mg/dL [facility] Comment:Testing performed by : [facility], [address] [place] [phone] Glucose 125 70 - 199 mg/dL [facility] Comment: Interpretive Data Fasting glucose >/= [...] was last revised 2017. Testing performed by: [facility], [address] [place] [phone] Calcium 11.0(H) 8.5 - 10.3 mg/dL [facility] Comment:Testing performed by : [facility], [address] [place] [phone] Bilirubin, total 0.4 0.1 - 1.2 mg/dL [facility] Comment:Testing performed by : [facility], [address] [place] [phone] Protein, pl 7.3 6.5 - 8.5 g/dL [facility] Comment:Testing performed by : [address] [phone] Albumin 4.5 3.5 - 5.0 g/dL [facility] Comment:Testing performed by : [facility], [address] [place] [phone] Alk phos 96 40 - 130 Units/L [facility] Comment:Testing performed by : [address] [phone] ALT 20 7 - 45 Units/L [facility] Comment:Testing performed by : [address] [phone] AST 24 10 - 45 Units/L [facility] Comment:Testing performed by : [facility], [address] [place] [phone] Blood specimen (specimen) 07/04/2020 3:30 PM CONTENT CHECKER 07/04/2020 3:34 PM CONTENT CHECKER us Eren Cr MD LAB BLOOD ORDERABLES Final Re sult [facility] [place] [address] * (ABNORMAL) CBC with auto differential (07/04/2020 3:30 PM CONTENT CHECKER) WBC 5.0 3.8 - 9.8 K/cumm [facility] Comment:Testing performed by : [place] [address] Hgb 13.4 12.1 - 15.1 g/dL [facility] Comment:Testing performed by : [place] [address] Hct 39.7 36.1 - 44.3 % [facility] Comment:Testing performed by : [place] [address] Plt 129(L) 140 - 440 K/cumm [facility] Comment:Testing performed by : [place] [address] MPV 7.6 6.8 - 10.4 fL [facility] Comment:Testing performed by : [place] [address] RBC 4.29 3.90 - 5.00 M/cumm [facility] Comment:Testing performed by : [place] [address] MCV 92.5 80.0 - 97.6 fL [facility] Comment:Testing performed by : [place] [address] MCH 31.3 26.7 - 33.7 pg [facility] Comment:Testing performed by : [place] [address] MCHC 33.9 32.7 - 35.5 g/dL [facility] Comment:Testing performed by : [place] [address] RDW CV 13.9 11.8 - 14.6 % [facility] Comment:Testing performed by : [place] [address] NRBC abs 0.00 0.00 - 0.01 K/cumm [facility] Comment:Testing performed by : [place] [phone] Blood specimen (specimen) 07/04/2020 3:30 PM CONTENT CHECKER 07/04/2020 3:34 PM CONTENT CHECKER us Eren Cr MD LAB BLOOD ORDERABLES Final Re sult [facility] [place] [address] * (ABNORMAL) Comprehensive metabolic panel (06/06/2020 3:37 PM CONTENT CHECKER) Sodium 139 135 - 145 mmol/L [facility] Comment:Testing performed by : [facility], [address] [place] [phone] Potassium, pl 4.0 3.3 - 4.9 mmol/L [facility] Comment: Hemolyzed; result may be falsely elevated. Testing performed by: [address] [phone] Chloride 105 97 - 110 mmol/L [facility] Comment:Testing performed by : [facility], [address] [place] [phone] CO2 29 22 - 32 mmol/L [facility] Comment:Testing performed by : [address] [phone] Anion gap 5 2 - 15 mmol/L [facility] Comment:Testing performed by : [address] [phone] BUN 11 8 - 25 mg/dL [facility] Comment:Testing performed by : [facility] [facility], [address] [place] [phone] Creatinine 0.78 0.60 - 1.10 mg/dL [facility]ON [facility] Comment:Testing performed by : [address] [phone] Glucose 115 70 - 199 mg/dL [facility] Comment: Interpretive Data Fasting glucose >/= [...] was last revised 2017. Testing performed by: [facility], [address] [place] [phone] Calcium 10.5(H) 8.5 - 10.3 mg/dL [facility]ER [facility] Comment:Testing performed by : [facility], [address] [place] [phone] Bilirubin, total 0.4 0.1 - 1.2 mg/dL CERNER [facility] Comment:Testing performed by : [facility], [address] [place] [phone] Protein, pl 7.2 6.5 - 8.5 g/dL [facility]ERNER [facility] Comment:Testing performed by : [facility], [address] [place] [phone] Albumin 4.4 3.5 - 5.0 g/dL [facility] Comment:Testing performed by : [facility], [address] [place] [phone] Alk phos 110 40 - 130 Units/L [facility] Comment:Testing performed by : [facility], [address] [place] [phone] ALT 14 7 - 45 Units/L [facility] Comment:Testing performed by : [address] [phone] AST 23 10 - 45 Units/L [facility] Comment: Hemolyzed; result may be falsely elevated. Testing performed by: [facility], [address] [place] [phone] Blood specimen (specimen) 06/06/2020 3:37 PM CONTENT CHECKER 06/06/2020 3:39 PM CONTENT CHECKER us Eren Cr MD LAB BLOOD ORDERABLES Final Re sult [facility] Department [place] [address] * (ABNORMAL) CBC with auto differential (06/06/2020 3:37 PM CONTENT CHECKER) WBC 4.9 3.8 - 9.8 K/cumm CERNER [facility]J Comment:Testing performed by : [facility], [address] [place], [place] [phone] Hgb 13.6 12.1 - 15.1 g/dL CERNER [facility]J Comment:Testing performed by : [facility], [address] [place] [phone] Hct 40.3 36.1 - 44.3 % [facility]ER [facility]J Comment:Testing performed by : [place] [phone] Plt 128(L) 140 - 440 K/cumm CERNER [facility]J Comment:Testing performed by : [address] [phone] MPV 7.9 6.8 - 10.4 fL [facility]ER [facility] Comment:Testing performed by : [facility], [address] [place], [place] [phone] RBC 4.41 3.90 - 5.00 M/cumm CERNER [facility]J Comment:Testing performed by : [place] [phone] MCV 91.3 80.0 - 97.6 fL C[facility]ER [facility] Comment:Testing performed by : [address] [phone] MCH 30.8 26.7 - 33.7 pg [facility]ER [facility] Comment:Testing performed by : [facility], [address] [place] [phone] MCHC 33.7 32.7 - 35.5 g/dL CERNER [facility]J Comment:Testing performed by : [place] [phone] RDW CV 13.6 11.8 - 14.6 % C[facility]ER [facility]J Comment:Testing performed by : [address] [phone] NRBC abs 0.01 0.00 - 0.01 K/cumm CERNER [facility]J Comment:Testing performed by : [facility], [facility] [phone] Blood specimen (specimen) 06/06/2020 3:37 PM CONTENT CHECKER 06/06/2020 3:39 PM CONTENT CHECKER Eren Cr MD LAB BLOOD ORDERABLES Final Re sult Performing Organization Address [facility] Co de Phone Number JASON BLACK [facility] [place] [employer] [place] [address] * (ABNORMAL) Chromogranin A (06/06/2020 3:36 PM CONTENT CHECKER) Chromogranin A 313(H) <93 ng/mL JASON BLACK Comment: Impaired renal or hepatic function or treatment with proton pump inhibitors may result in artifactual elevations of Chromogranin A. ADDITIONAL INFORMATION This test was developed and its performance characteristics determined by [facility] in a manner consistent with CLIA [...] absence of malignant disease. Test Performed by: [facility] - [address] [address] Director Of Vocational Guidance: Immanuel Novak M.D. Ph.D.; CLIA# [id number] Blood specimen (specimen) 06/06/2020 3:36 PM CONTENT CHECKER 06/06/2020 4:32 PM CONTENT CHECKER Eren Cr MD LAB BLOOD ORDERABLES Final Re sult [facility] [place] [place] [address] documented in this encounter Visit Diagnoses Diagnosis [...] D ate First Ordered Date PHOSPHORUS 1 05/09/2020 Appointment Requests Count Last Ordered Date Fi rst Ordered Date ONCBCN INJECTION APPOINTMENT REQUEST 2 06/0806/06/2020 ONCBCN LAB APPOINTMENT 2 07/04/202006/06 ONCBCN CLINIC APPOINTMENT REQUEST 1 020 documented in this encounter Care Teams Care Program Resident Relationship Specialty Start Date End Date Julio César Briseno MD PCP - General 10/01/16 Eren Cr MD Referring Physician Medical Oncology 11/25/18 Yohana Bowen MD Radiation Oncologist Radiation Oncology 11/25/18 documented as of this encounter
--- OUTSIDE RECORDS SUMMARY | 2024-06-25 22:31 | XMS_ITS | Encounter Summary ---
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); Bone metastasis (CMS/HCC); Neuroendocrine carcinoma (CMS/HCC) Social History Tobacco Use Types Packs/Day Years Used Date Smoking Tobacco: Never Smokeless Tobacco: Never Alcohol Use Standard Drinks/Week Comments Yes 1 (1 standard drink = 0.6 oz pur e alcohol) Comments No Sex and Gender Information Value Date Recorded Sex Assigned at Not on file Legal Sex Female 2:41 PM FILENET ARCHITECT Gender Identity Not on file Sexual Orientation Straight 02/19/2021 9: 29 AM CDT Occupation Industry Job Start Date Job End Date retired Not on file Not on file Not on file documented as of this encounter Plan of Treatment Not on file documented as of this encounter Results * Calcium level (05/24/2020 8:08 AM FILENET ARCHITECT) Calcium 10.3 8.5 - 10.3 mg/dL [facility] Blood specimen (specimen) 05/24/2020 8:08 AM FILENET ARCHITECT 05/24/2020 8:12 AM FILENET ARCHITECT Eren Cr MD LAB BLOOD ORDERABLES Final Re sult Performing Organization Address [facility] Co de Phone Number [facility] [employer] [place] [address] * Calcium level (05/16/2020 8:08 AM FILENET ARCHITECT) Calcium 10.3 8.5 - 10.3 mg/dL [facility] Comment:Testing performed by : [facility], [address] [place] [phone] Blood specimen (specimen) 05/16/2020 8:08 AM FILENET ARCHITECT 05/16/2020 8:09 AM FILENET ARCHITECT us Eren Cr MD LAB BLOOD ORDERABLES Final Re sult Performing Organization Address [facility] Phone Number [facility] [place] [employer] [place] [address] documented in this encounter Visit Diagnoses Diagnosis Malignant neoplasm metastatic to liver (HCC)- Primary Bone metastasis Secondary malignant neoplasm of bone and bone marrow Neuroendocrine carcinoma (HCC) Other malignant neoplasm of unspecified site documented in this encounter Orders Appointment Requests Count Last Ordered Date Fi rst Ordered Date ONCBCN LAB APPOINTMENT 1 05/16/2020 documented in this encounter Care Teams Wood Setter Relationship Specialty Start Date End Date Julio César Briseno MD PCP - General 10/01/16 Eren Cr MD Referring Physician Medical Oncology 11/25/18 Yohana Bowen MD Radiation Oncologist Radiation Oncology 11/25/18 documented as of this encounter
--- OUTSIDE RECORDS SUMMARY | 2024-06-25 22:31 | XMS_ITS | Encounter Summary ---
Author Organization [facility] Healthcare Address [address] [place] [address] Care Team Providers Care Shot Core Drill Operator Helper Name Role Phone Julio César Briseno MD Primary Care Provider Eren Cr MD Unavailable [phone] Yohana Bowen MD Unavailable Encounter Details Date Type Department Care Team (Late st Contact Info) Description 05/30/2020 8:00 AM LIBRARIAN - 05/30/2020 9:00 AM LIBRARIAN Surgery [facility] Operating Room [address] [place] [address] Thea Reeves MD [address] [facility] [phone] [place] [address] EXAM UNDER ANESTHESIA - RECTUM Surgery Details Date/Time Status Location OR Service Patient Class Case Cl ass Case Type Trauma Case? 05/30/2020 8:00 AM Posted [facility] OPERATING ROOM OR 03 Colorectal Outpatient Elective Panel 1 Procedure LRB Anes Op Region Wound Class Comments EXAM UNDER ANESTHESIA - RECTUM N/A Choice Anus Class IV - Dirty or Infected FULGURATION PARASTOMAL EPITHELIAL HYPERPLASIA N/A Monitor Anesthesia Care Abdomen Class II - Clean Contaminated Surgeon Surgeon Role Service Panel Thea Reeves MD Primary Colorectal 1 Mitchel Tabares MD Resident - Assisting General S urgery 1 documented in this encounter Social History Tobacco Use Types Packs/Day Years Used Date Smoking Tobacco: Never Smokeless Tobacco: Never Alcohol Use Standard Drinks/Week Comments Yes 1 (1 standard drink = 0.6 oz pur e alcohol) Comments No Sex and Gender Information Value Date Recorded Sex Assigned at Not on file Legal Sex Female 2:41 PM LIBRARIAN Gender Identity Not on file Sexual Orientation Straight 02/19/2021 9: 29 AM CDT Occupation Industry Job Start Date Job End Date retired Not on file Not on file Not on file documented as of this encounter Last Filed Vital Signs Vital Sign Reading Time Taken Comments Blood Pressure 164/74 05/30/2020 8:35 AM LIBRARIAN Pulse 72 05/30/2020 8:35 AM LIBRARIAN Temperature 36.1 ??C (97 ??F) 05/30/2020 8:01 AM LIBRARIAN Respiratory Rate 13 05/30/2020 8:35 AM LIBRARIAN Oxygen Saturation 95% 05/30/2020 8:35 AM LIBRARIAN Inhaled Oxygen Concentration - - Weight 83.9 kg (185 lb) 05/24/2020 12:50 PM LIBRARIAN Height 160 cm (5' 3 ) 05/24/2020 12:50 PM LIBRARIAN Body Mass Index 32.77 05/24/2020 12:50 PM LIBRARIAN documented in this encounter Discharge Instructions * Discharge Instructions* Birgit Rain RN - 05/30/2020 8:10 AM LIBRARIAN FAQs (frequently asked questions) about Surgical Site [...] physical therapy, we are available to assist: [facility] STAR: [facility] [phone] [place] [phone] [facility] [phone] How are some things that you can [...] given by your doctor or other health ocular care aide. Moderate Sedation WHAT YOU NEED TO KNOW: [...] ask them during your visits. ?? 2017 [employer] Information is for End User's use only and may not be sold, redistributed or otherwise used for commercial purposes. All illustrations and images included in CareNotes?? are the copyrighted property of [employer]. or [email or web address]. The above information is an associate director financial aid only. It is not intended as medical advice for individual conditions or treatments. Talk to your doctor, nurse or pharmacist before following any medical regimen to see if it is safe and effective for you. ARIAN documented in this encounter Medications at Time of Discharge [facility] Patient has colostomy and needs Cavilon 3M skin barrier film to manage. 20 each 6 09/21/2019 simvastatin (ZOCOR) 20 mg tablet Take 1 tablet (20 mg total) by mouth nightly ascorbic acid, vitamin C, 500 mg capsuleIndications :supplement Take 1 tablet by mouth fur buyer before breakfast 07/04/2016 4 cholecalciferol (VITAMIN D-3) 2,000 unit capsule Take 1 capsule (2,000 Units total) by mouth daily 30 capsule 2 04/25/2019 3 cholestyramine (QUESTRAN) 4 gram packet Take 1 packet by mouth 3 (three) times a day with meals 270 packet 3 09/04/2019 2 clotrimazole-betam ethasone (LOTRISONE) cream Apply 1 Application topically daily as needed (rash) 4 coenzyme [id number] E 100-5 mg-unit capsuleIndications :supplement Take 1 tablet by mouth fur buyer before breakfast 4 denosumab (XGEVA) 120 mg/1.7 [...] Thea Reeves MD at 05/30/2020 7:23 AM LIBRARIAN ARIAN ARIAN Source Note - Thea Reeves MD - 05/24/2020 10:00 AM LIBRARIAN Colorectal Surgery Clinic Visit Chief Complaint: La [...] system History of hemorrhoids - (Added by SONIYA Beyer) ??? PONV (postoperative nausea and vomiting) Past Surgical History: Procedure Laterality Date ??? COLON SURGERY 10/03/2015 Right colectomy ??? EXPLORATORY LAPAROTOMY 04/13/2019 Exploratory laparotomy with creation of divided loop colostomy ??? GALLBLADDER SURGERY Gallbladder Surgery - (Added by SONIYA Conv) ? ? IR PICC LINE PLACEMENT > 5 YEARS N/A 12/23/2018 ? ? IR PICC LINE PLACEMENT > 5 YEARS N/A 02/17/2019 ? ? IR PICC LINE PLACEMENT > 5 YEARS N/A 06/09/2019 ? ? IR PICC LINE PLACEMENT > 5 YEARS N/A 08/04/2019 ? ? AZ REMOVAL OF TONSILS,<12 Y/O Tonsillectomy - (Added by TW Conv) ??? AZ TOTAL ABDOM HYSTERECTOMY Hysterectomy - (Added by TW Conv) HOME MEDICATIONS : ascorbic acid, vitamin C, 500 mg capsule cholecalciferol (VITAMIN D-3) 2,000 unit capsule cholestyramine (QUESTRAN) 4 gram packet clotrimazole-betamethasone (LOTRISONE) cream coenzyme [id number] E (CO Q-10, WITH VIT E,) 100-5 [...] lesions. Thea Reeves MD 05/24/2020 9:26 AM ARIAN documented in this encounter Miscellaneous Notes * Op Note - Thea Reeves MD - 05/30/2020 8:00 AM CST SURGEON Thea Reeves MD GRINDING MILL OPERATOR: PREOPERATIVE DIAGNOSIS: Pseudo epithelial hyperplasia of the [...] local anesthesia. We then with use of electrocautery fulgurated the PEH circumferentially. The patient tolerated the procedure well and was taken to postanesthesia recovery in stable condition. SPONGE, INSTRUMENT, NEEDLE COUNTS were correct. TOTAL IV FLUIDS: 1 L ESTIMATED BLOOD LOSS: Minimal. SPECIMEN: None Of note, I Dr. Reeves, was present for the entire case. THEA REEVES M.D. ARIAN * Pre-Procedure Instructions - Feliciano, Mayank Ruizelle, CECILIA - 05/25/2020 10:28 AM CST [facility] Location: [facility] The night before your surgery: * [...] take on day of surgery ??? coenzyme [id number] E (CO Q-10, WITH VIT E,) 100-5 [...] bowel prep or special diet before surgery ARIAN * Perioperative Nursing Note - Yvonne Torres RN - 05/24/2020 1:01 PM LIBRARIAN [place] for Preoperative Assessment and Planning Perioperative Nursing Note Telephone Preoperative Evaluation ([facility]) - TELEPHONE ONLY, NO PHYSICAL EXAM [...] mg capsule Take 1 tablet by mouth fur buyer before breakfast ??? cholecalciferol (VITAMIN D-3) 2,000 unit capsule Take 1 capsule (2,000 Units total) by mouth daily (Patient taking differently: Take 6,000 Units by mouth fur buyer before breakfast ) 30 capsule 2 ??? cholestyramine (QUESTRAN) 4 gram packet Take 1 packet by mouth 3 (three) times a day with packet 3 ??? clotrimazole-betamethasone (LOTRISONE) cream clotrimazole-betamethasone 1 %- 0.05 % topical cream APPLY EXTERNALLY TO ABDOMEN TWICE DAILY NEEDED ??? coenzyme [id number]-[id number] E (CO Q-10, WITH VIT E,) 100-5 mg-unit capsule Take by mouth early morningbefore breakfast ??? denosumab (XGEVA) 120 mg/1.7 mL (70 mg/mL) injection Inject under the skin every 30 (thirty) days ??? DULoxetine DR (CYMBALTA) 30 mg capsule Take 1 capsule (30 mg total) by mouth daily (Patient taking differently: Take 30 mg by mouth fur buyer before breakfast ) 30 capsule 2 ??? [...] per tablet Take 0.5 tablets by mouth fur buyer before breakfast decrease dosage to 0.5 tablet daily 05/14/[address] Briseno at office visit. ??? ondansetron (ZOFRAN) 8 mg tablet Take 1 tablet (8 mg total) by mouth every 8 (eight) hours as needed for nausea or vomiting 20 tablet 3 ??? ostomy supplies [facility] Patient has colostomy and needs Cavilon 3M [...] directive Information Provided on Healthcare Directives: No Communication/Tax Director Needs Communication Needs: Glasses Assistive Devices/DME: Eyeglasses [...] 3 weeks?: (!) Yes(exposed 05/13/2020/tested negative at [facility] 05/20/2020) Do you live in or work in a congregate living facility (ex. assisted living/halfway facility, senior living, custodial)?: No Have you tested positive for COVID-19 [...] 20 seconds. Use an alcohol- based hand tank crewmember that contains at least 60% alcohol if soap and water are not available. ADDITIONAL COMMENTS/ FOLLOW UP ARIAN * Pre-Procedure Instructions - Yvonne Torres RN - 05/24/2020 12:59 PM LIBRARIAN PRE-SURGICAL INSTRUCTIONS ??? General Information ?? Surgery [...] insurance card, a photo ID (like a Liberal Arts Teacher's license) and a method of payment for [...] COVID Test Request Placed in Epic to [facility]. Test to be performed on 05/27 at [facility], If you have COVID testing or should have COVID testing for your surgery/procedure, please read below section: If you need to reschedule your COVID test to a different location or if your surgery gets rescheduled, you MUST call [phone] Saturday-Saturday 8am-4:30pm to get your COVID testing rescheduled or your lab order will not be available at Testing Sites. COVID Testing is only valid for up to 96 hours prior to surgery date, unless otherwise specified. If you are unable to reach staff at the above phone number, please call the CPAP Staff at [phone]. This number cannot order a lab test, [...] 20 seconds. Use an alcohol- based hand tank crewmember that contains at least 60% alcohol if soap and water are not available. ALL Patients should read below section: All visitors/patients are being asked to wear a clean mask when entering the hospital. COVID 19 Updates & Visitor Policy: Please access [email or web address] for the most updated information. Surgery Times: ??? For patients having surgery @ [facility], [facility], if your surgeon's office has not notified you of your surgery time by NOON THE BUSINESS DAY BEFORE your surgery, please call [phone] and ask for your surgeon's office ARIAN documented in this encounter Plan of Treatment Not on file documented as of this encounter Procedures Procedure Name Priority Date/Time Associated Diagnosis Comments FULGURATION PARASTOMAL EPITHELIAL HYPERPLASIA 05/30/2020 7:43 AM LIBRARIAN Pseudoepitheliomatous hyperplasia EXAM UNDER ANESTHESIA - RECTUM 05/30/2020 7:43 AM LIBRARIAN Pseudoepitheliomatous hyperplasia documented in this encounter Visit Diagnoses Diagnosis 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 documented in this encounter Admitting Diagnoses Diagnosis Pseudoepitheliomatous hyperplasia documented in this encounter Administered Medications Inactive Administered Medications - up to 3 most recent administrations Medication Order MAR Action Action Date Dose Rate Site bupivacaine (MARCAINE) 0.25 % (2.5 mg/mL) preservative free injection As needed, Starting on Sat05/30/20 at 0754, Intra-Op Given 05/30/2020 7:54 AM LIBRARIAN 20 mL Surgical Site Lactated Ringer's (LR) infusion 30 mL/hr, intravenous, Continuous, Starting on Sat05/30/20 at 0645, Pre-Op, Use a 500 ml bag for End Stage Renal Disease Patients Rate/Dose Change 05/30/2020 7:43 AM LIBRARIAN 50 mL/hr New Bag 05/30/2020 6:39 AM LIBRARIAN 30 mL/hr 30 mL/hr scopolamine patch 72 [...] and Vomiting Medication Applied 05/30/2020 6:41 AM LIBRARIAN 1 patch Behind Right Ear sodium chloride 0.9 % irrigation As needed, Starting on Sat05/30/20 at 0751, Intra-Op Given 05/30/2020 7:51 AM LIBRARIAN 250 mL Surgical Site documented in this encounter Historical Medications * This list may reflect changes made after this encounter. denosumab (XGEVA) 120 mg/1.7 mL (70 mg/mL) injection Inject under the skin every 30 (thirty) days 11/13/2021 octreotide (SandoSTATIN) 50 mcg/mL (1 mL) syringe every 30 (thirty) days 04/09/2016 11/13/2021 added in this encounter Active and Recently Administered Medications Times are shown in LIBRARIAN. Scheduled Medication Order 05/28/2020 05/29/2020 05/30/2020 scopolamine [...] 0639 (New Bag - Prov ider: Deyanira Wise, IRVING)0743 (Rate/Dose Change - Provider: Loc Saleem CRNA) [...] 1st line pain med for patients at [facility]. Use as 2nd line at [facility] [...] Date acetaminophen (TYLENOL) tablet 500 mg 1 diphenhydrAMINE (BENADRYL) i njection 12.5 mg 1 [...] injection 5 mg 1 05/30/2020 sodium chloride 0.9% flush 0.5-20 mL 1 05/09 Diet Count Last Ordered Date First Orde red Date ADULT DISCHARGE DIET 1 05/30/2020 Nursing Count Last Ordered Date First Orde red Date DISCHARGE ACTIVITY 1 05/30/2020 DISCHARGE CALL PROVIDER 5 05/30/2020 DISCHARGE DRESSING 1 05/30/2020 documented in this encounter Care Teams Shot Core Drill Operator Helper Relationship Specialty Start Date End Date Julio César Briseno MD PCP - General 10/01/16 Eren Cr MD Referring Physician Medical Oncology 11/25/18 Yohana Bowen MD Radiation Oncologist Radiation Oncology 11/25/18 documented as of this encounter
--- OUTSIDE RECORDS SUMMARY | 2024-06-25 22:31 | XMS_ITS | Encounter Summary ---
Author Organization [facility] Address [address] [place] [address] Phone Care Team Providers Care Coke Wheeler Name Role Phone Julio César Briseno MD Primary Care Provider [phone] Eren Cr MD Unavailable [phone] Yohana Bowen MD Unavailable Reason for Visit * Reason Comments Injections * Episode Based Medications (Routine) - Authorized Specialty Diagnoses / Procedures Referred By Contellen t Referred To Contact Oncology Diagnoses Neuroendocrine carcinoma (HCC) Malignant neoplasm metastatic to liver (HCC) Procedures TX OCTREOTIDE INJECTION, DEPOT Octreotide 28 Day Cycles - Carcinoid Eren Cr MD [address] [address] [place] [address] Phone: tel: fax: [address] [address] Phone: tel: fax: Referral ID Status Reason Start Date Expiration Date V isits Requested Visits Authorized [id number] Authorized 11/28/2017 02/05/2025 1 150 Encounter Details Date Type Department Care Team (Late st Contact Info) Description 06/06/2020 4:15 PM MICA LAMINATING MACHINE FEEDER Infusion [facility] Oncology [facility] Advanced Medicine 7th [place] [address] Neuroendocrine carcinoma (CMS/HCC) (Primary Dx); Malignant neoplasm [...] on file Legal Sex Female 2:41 PM MICA LAMINATING MACHINE FEEDER Gender Identity Not on file Sexual Orientation Straight 02/19/2021 9: 29 AM CDT Occupation Industry Job Start Date Job End Date retired Not on file Not on file Not on file documented as of this encounter Last Filed Vital Signs Vital Sign Reading Time Taken Comments Blood Pressure 156/66 06/06/2020 3:47 PM MICA LAMINATING MACHINE FEEDER Pulse 78 06/06/2020 3:47 PM MICA LAMINATING MACHINE FEEDER Temperature 36.2 ??C (97.2 ??F) 06/06/2020 3:47 PM CS T Respiratory Rate 20 06/06/2020 3:47 PM MICA LAMINATING MACHINE FEEDER Oxygen Saturation 99% 06/06/2020 3:47 PM MICA LAMINATING MACHINE FEEDER Inhaled Oxygen Concentration - - Weight 83.8 kg (184 lb 11.9 oz) 06/06/2020 3:47 PM MICA LAMINATING MACHINE FEEDER Height - - Body Mass Index 32.73 05/24/2020 12:50 PM MICA LAMINATING MACHINE FEEDER documented in this encounter Nursing Notes * Ashanti Garcia RN - 06/06/2020 4:15 PM CST Pt tolerated injections without complications. AVS declined. Pt discharged ambulatory. LAMINATING MACHINE FEEDER documented in this encounter Plan [...] 120 mg 120 mg, subcutaneous, Once, On Sat06/06/20 at 1645, For 1 dose, Calcium level should be greater than 8 mg/dl Administer injection in upper arm, abdomen or upper thigh Refrigerate. Allow to stand 15 to 30 mins prior to useIndications:Bone metastasis,Neuro-endocrine carcinoma (HCC) Given 06/06/2020 4:16 PM MICA LAMINATING MACHINE FEEDER 120 mg Left Lower Abdomen octreotide LAR (SandoSTATIN LAR) extended release intramuscular injection 30 mg 30 mg, intramuscular, Once, On Sat06/06/20 at 1615, For 1 dose, Refrigerate. For IM intragluteal administration only- alternate gluteal sites. Shake.Indications:Malignan t neoplasm metastatic to liver (HCC),Neuroendocrine carcinoma (HCC) Given 06/06/2020 4:00 PM MICA LAMINATING MACHINE FEEDER 30 mg Left Dorsogluteal/Butto ck documented in this encounter Orders Nursing Count Last Ordered Date First Orde red Date ONCBCN NURSING COMMUNICATION [id number] 1 1 08/06/2019 Appointment Requests Count Last Ordered Date Fi rst Ordered Date ONCBCN INJECTION APPOINTMENT REQUEST 1 05/10 documented in this encounter Care Teams Coke Wheeler Relationship Specialty Start Date End Date Julio César Briseno MD PCP - General 10/01/16 Eren Cr MD Referring Physician Medical Oncology 11/25/18 Yohana Bowen MD Radiation Oncologist Radiation Oncology 11/25/18 documented as of this encounter
--- OUTSIDE RECORDS SUMMARY | 2024-06-25 22:31 | XMS_ITS | Encounter Summary ---
Author Organization [facility] Address [address] [place] [address] Care Team Providers Care Pie Bottomer Name Role Phone Julio César Briseno MD Primary Care Provider [phone] Eren Cr MD Unavailable [phone] Yohana Bowen MD Unavailable Reason for Visit * Reason Comments Follow-up Encounter Details Date Type Department Care Team (Late st Contact Info) Description 05/04/2020 10:30 AM CDT Telemedicine [facility] Advanced Medicine Radiation Oncology [address] [place] [address] Advanced Medicine [facility] [place] [address] Yohana Bowen MD [facility] [address] [place] [address] Neuroendocrine carcinoma (CMS/HCC) (Primary Dx) Social History Tobacco Use Types Packs/Day Years Used Date Smoking Tobacco: Never Smokeless Tobacco: Never Alcohol Use Standard Drinks/Week Comments Yes 1 (1 standard drink = 0.6 oz pur e alcohol) Comments No Sex and Gender Information Value Date Recorded Sex Assigned at Not on file Legal Sex Female 2:41 PM MARSHMALLOW RUNNER Gender Identity Not on file Sexual Orientation Straight 02/19/2021 9: 29 AM CDT Occupation Industry Job Start Date Job End Date retired Not on file Not on file Not on file documented as of this encounter Progress Notes * Immanuel Britt MD PhD - 05/04/2020 10:30 AM CDT Patient Name: La Chung Date of : 1950 Radiation Oncologist: Yohana Bowen MD Primary Care Physician: Julio César Briseno MD Medical Oncologist: Eren Cr Jr., MD Surgeon: Greyson Reeves MD Referring Physician: Patient Care Team: Eren Cr Jr., MD as Referring Physician (Medical Oncology) Date of Service: 05/04/2020 Radiation Oncology Follow-Up Note DIAGNOSIS: Cancer Staging 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 She is s/p lutathera therapy (complete 4/4 fractions on 08/05/19) and continues on octreotide injections. TREATMENT RECEIVED: Radiation Treatments Active No active radiation treatments to show. Historical Plans Lutathera Most recent treatment: Dose planned: 200 cGy (fraction 4 on 08/05/2019) Total: Dose planned: 800 cGy Elapsed Days: 224 Reference Points Lutathera Most recent treatment: Dose given: 200 cGy (on 08/05/2019) Total: Dose given: 800 cGy Elapsed Days: 224 INTERVAL HISTORY: Pt reports having pain and intermittent bleeding around the stoma site. Pt was last seen on 04/14 byDr Reeves and is continuing with silver nitrate PRN per Dr Reeves's recommendation. Pt denies fever/chills, N/V, and reports the output from her stoma site varies depending on her food intake but is generally loose lately and less watery with cholestyramine. ALLERGIES: Allergies as of 05/04/2020 - Reviewed 05/03/2020 Allergen Reaction Noted ??? Ezetimibe-simvastatin Muscle pain and Unknown 01/11/2012 ??? Ramipril Cough 12/30/2017 MEDICATIONS: Current Outpatient Medications Medication Sig Dispense Refill ??? ascorbic acid, vitamin C, 500 mg capsule Take 1 tablet by mouth. ??? cholecalciferol (VITAMIN D-3) 2,000 unit capsule Take 1 capsule (2,000 Units total) by mouth daily (Patient taking differently: Take 5,000 Units by mouth 3 (three) times a day ) 30 capsule 2 ??? cholestyramine (QUESTRAN) 4 gram packet Take 1 packet by mouth 3 (three) times a day with [id number] packet 3 ??? clotrimazole-betamethasone (LOTRISONE) cream clotrimazole-betamethasone 1 %- 0.05 % topical cream APPLY EXTERNALLY TO ABDOMEN TWICE DAILY NEEDED ??? coenzyme [id number] E (CO Q-10, WITH VIT E,) 100-5 mg-unit capsule ??? DULoxetine DR (CYMBALTA) 30 mg capsule Take 1 capsule (30 mg total) by mouth daily 30 capsule 2 ??? fluticasone propionate (FLONASE) 50 mcg/actuation nasal spray fluticasone propionate 50 mcg/actuation nasal spray,suspension ??? gabapentin (NEURONTIN) 600 mg tablet Take 1 tablet (600 mg total) by mouth 3 (three) times a day 90 tablet 11 ??? montelukast (SINGULAIR) 10 mg tablet montelukast 10 mg tablet ??? olmesartan-hydrochlorothiazide (BENICAR HCT) 20-12.5 mg per tablet Take 0.5 tablets by mouth daily decrease dosage to 0.5 tablet daily 05/14/[address] Briseno at office visit. ??? ondansetron (ZOFRAN) 8 mg tablet Take 1 tablet (8 mg total) by mouth every 8 (eight) hours as needed for nausea or vomiting 20 tablet 3 ??? [facility] has colostomy and needs Cavilon 3M skin barrier film to manage. 20each 6 ??? oxybutynin (DITROPAN) 5 mg tablet Take 1 tablet (5 mg total) by mouth 2 (two) times a day for 14 days 28 tablet 0 ??? simvastatin (ZOCOR) 20 mg tablet No current facility-administered medications for this visit. Facility-Administered Medications Ordered in Other Visits Medication Dose Route Frequency Provider Last Rate Last Dose ??? L-arginine 1.25%/L-lysine 1.25% infusion 1,000 mL 1,000 mL intravenous Continuous Meagan Amaya MD SMOKING STATUS: Social History Tobacco Use Smoking Status Never Smoker Smokeless Tobacco Never Used REVIEW OF SYSTEMS: Except for the symptoms described above, the remainder of the review of systems is negative. PERFORMANCE STATUS: KPS 90, Able to carry on normal activity; minor signs or symptoms of disease (ECOG equivalent 0). PHYSICAL EXAM: GEN: Alert and oriented. No acute distress. PULM: Breathing comfortably on room air. NEURO: Awake, alert and fully oriented. PSYCH: Appropriate affect. REPORTS REVIEWED: Imaging: Yohana Bowen MD and I reviewed the patient's most recent imaging studies. Pertinent findings are as per interval history. Laboratory/Pathology: Yohana Bowen MD and I reviewed the patient's most recent laboratory and pathology reports. Pertinent findings are as per interval history. CT CAP (05/03/2020)?? IMPRESSION: 1. Essentially no change in multiple hepatic metastases and omental metastases. Metastasis adjacent to the vaginal fornix is also unchanged. 2. No thoracic metastases. X-ray of the left humerus (05/03/2020) IMPRESSION: 1. Radiographically occult metastatic lesion in the left humerus. CT neck (05/03/2020): IMPRESSION: 1. Right C7 inferior articular facet and T1 right pedicle sclerotic lesion corresponding to a focus of increased uptake on recent DOTATATE PET/CT. 2. Interval increase in size of suspicious right supraclavicular lymph node, recommend attention on follow-up. No other concerning lymph nodes are identified. ?? ASSESSMENT AND PLAN: La Chung is a 69 y.o. 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 She is s/p lutathera therapy (complete 4/4 fractions on 08/05/19) and continues on octreotide injections. Pt is overall stable on recent imaging, with no evidence of new metastatic lesions. Pt is continuing to follow up with Dr Reeves's team on further management of stomal site. Follow-up in [address] RAD ONC PAIN PLAN: The patient's pain is currently being managed by Medical Oncology . DISEASE STATUS: Disease Status: Failure: Distant New metachronous cancer?: No Immanuel Britt M.D., Ph.D. Resident Physician, PGY-2 Department of Radiation Oncology Cosigned by Yohana Bowen MD at 05/09/2020 11:11 AM MARSHMALLOW RUNNER HMALLOW RUNNER Associated attestation - Yohana Bowen MD - 05/09/2020 11:11 AM MARSHMALLOW RUNNER I have seen and examined the patient. I agree with the findings and plan of care as documented in the resident/fellow's note. Patient has shoulder pain with painting but does not need intervention at this time. She will call if she would like palliative RT to help with pain. Follow-up with Dr. Reeves for granulomas at stoma site. Her SCV nodes are larger but asymptomatic and systemic disease otherwise stable. Defer to medical oncology for possible changes in therapy. Reasonable to continue current therapy. Will obtain interval imaging in 3 months (CT C/A/P). This was a telemedicine visit with La medina which took place via Real-time video connection ([employer], Zoom or similar).During the visit, I was located in the office and the patient was located at home in the [facility]. I was present for the damon portions with the resident and patient/caregiver. I agree with the findings and plan of care as documented in the resident's note. My visit with the patient started at 12:15 PM and ended at 12:21 PM. Total encounter time was 30 minutes, which includes time spent today on pre charting, the patient encounter, and post charting and Greater than 50% of the video/phone call was spent on counseling and coordinating care. Patient was counseled on NET . The patient: has been informed that the visit may not be secure and acknowledged the information. The Attending has explained the option of participating in a telephone or video visit during the COVID-19 public health emergency to them. After being given an opportunity to ask questions about and discuss this type of visit, they verbally consented to proceeding with the telephone/video visit and understand that this service replaces an office visit. Thank you for allowing us to participate in the care of this patient. Yohana Bowen MD Chief, GI Service Department of Radiation Oncology documented in this encounter Plan of Treatment Not on file documented as of this encounter Visit Diagnoses Diagnosis Neuroendocrine carcinoma (HCC)- Primary Other malignant neoplasm of unspecified site documented in this encounter Care Teams Pie Bottomer Relationship Specialty Start Date End Date Julio César Briseno MD PCP - General 10/01/16 Eren Cr MD Referring Physician Medical Oncology 11/25/18 Yohana Bowen MD Radiation Oncologist Radiation Oncology 11/25/18 documented as of this encounter
--- OUTSIDE RECORDS SUMMARY | 2024-06-25 22:31 | XMS_ITS | Encounter Summary ---
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); Neuroendocrine tumor; Neuroendocrine carcinoma (CMS/HCC) Social History Tobacco Use Types Packs/Day Years Used Date Smoking Tobacco: Never Smokeless Tobacco: Never Alcohol Use Standard Drinks/Week Comments Yes 1 (1 standard drink = 0.6 oz pur e alcohol) Comments No Sex and Gender Information Value Date Recorded Sex Assigned at Not on file Legal Sex Female 2:41 PM STEEL HEATER Gender Identity Not on file Sexual Orientation Straight 02/19/2021 9: 29 AM CDT Occupation Industry Job Start Date Job End Date retired Not on file Not on file Not on file documented as of this encounter Plan of Treatment Not on file documented as of this encounter Procedures Procedure Name Priority Date/Time Associated Diagnosis Comments CALCIUM LEVEL STAT 05/24/2020 8:08 AM STEEL HEATER 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) Neuroendocrine carcinoma (CMS/HCC) documented in this encounter Results * Calcium level (05/24/2020 8:08 AM STEEL HEATER) Calcium 10.3 8.5 - 10.3 mg/dL JASON BLACK Blood specimen (specimen) 05/24/2020 8:08 AM STEEL HEATER 05/24/2020 8:12 AM STEEL HEATER us Eren Cr MD LAB BLOOD ORDERABLES Final Re sult [facility] Department [place] [address] documented in this encounter Visit Diagnoses Diagnosis Malignant neoplasm metastatic to liver (HCC) 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
--- OUTSIDE RECORDS SUMMARY | 2024-06-25 22:31 | XMS_ITS | Encounter Summary ---
Author Organization [facility] Address [address] [place] [address] Phone Care Team Providers Care Back Up Scan Coordinator Name Role Phone Julio César Briseno MD Primary Care Provider [phone] Eren rC MD Unavailable [phone] Yohana Bowen MD Unavailable Encounter Details Date Type Department Care Team (Late st Contact Info) Description 05/16/2020 8:00 AM TRANSITION ADVISOR Lab [facility] Oncology [facility] 7th [place] [address] [place] [address] 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); Neuroendocrine carcinoma (CMS/HCC) Social History Tobacco Use Types Packs/Day Years Used Date Smoking Tobacco: Never Smokeless Tobacco: Never Alcohol Use Standard Drinks/Week Comments Yes 1 (1 standard drink = 0.6 oz pur e alcohol) Comments No Sex and Gender Information Value Date Recorded Sex Assigned at Not on file Legal Sex Female 2:41 PM TRANSITION ADVISOR Gender Identity Not on file Sexual Orientation Straight 02/19/2021 9: 29 AM CDT Occupation Industry Job Start Date Job End Date retired Not on file Not on file Not on file documented as of this encounter Plan of Treatment Not on file documented as of this encounter Procedures Procedure Name Priority Date/Time Associated Diagnosis Comments CALCIUM LEVEL STAT 05/16/2020 8:08 AM TRANSITION ADVISOR 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) Neuroendocrine carcinoma (CMS/HCC) documented in this encounter Results * Calcium level (05/16/2020 8:08 AM TRANSITION ADVISOR) Calcium 10.3 8.5 - 10.3 mg/dL J[facility]ON [facility] Comment:Testing performed by : [facility], [address] [place] [id number] Blood specimen (specimen) 05/16/2020 8:08 AM TRANSITION ADVISOR 05/16/2020 8:09 AM TRANSITION ADVISOR us Eren Cr MD LAB BLOOD ORDERABLES Final Re sult [facility] Department [place] [address] documented in this encounter Visit Diagnoses Diagnosis Malignant neoplasm metastatic to liver (HCC) Neuroendocrine carcinoma (HCC) Other malignant neoplasm of unspecified site documented in this encounter Orders Appointment Requests Count Last Ordered Date Fi rst Ordered Date ONCBCN LAB APPOINTMENT 1 05/16/2020 documented in this encounter Care Teams Back Up Scan Coordinator Relationship Specialty Start Date End Date Julio César Briseno MD PCP - General 10/01/16 Eren rC MD Referring Physician Medical Oncology 11/25/18 Yohana Bowen MD Radiation Oncologist Radiation Oncology 11/25/18 documented as of this encounter
--- OUTSIDE RECORDS SUMMARY | 2024-06-25 22:31 | XMS_ITS | Encounter Summary ---
Author Organization [facility] Address [address] [place] [address] Phone Care Team Providers Care Bedspread Seamer Name Role Phone Julio César Briseno MD Primary Care Provider [phone] Eren Lund MD Unavailable [phone] Yohana Bowen MD Unavailable Reason for Visit * Episode Based Medications (Routine) - Authorized Specialty Diagnoses / Procedures Referred By Evelyne t Referred To Contact Oncology Diagnoses Neuroendocrine carcinoma (HCC) Malignant neoplasm metastatic to liver (HCC) Procedures OR OCTREOTIDE INJECTION, DEPOT Octreotide 28 Day Cycles - Carcinoid Eren Lund MD [address] [facility] [address] [place] [address] Phone: tel: fax: [facility] [address] [address] Phone: tel: fax: Referral ID Status Reason Start Date Expiration Date V isits Requested Visits Authorized [id number] Authorized 11/28/2017 02/05/2025 1 150 Encounter Details Date Type Department Care Team (Late st Contact Info) Description 05/09/2020 4:00 PM DEPUTY 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 Infusion [facility] On[facility] 7th [place] [address] Neoplasm of skin (Primary Dx); Neuroendocrine carcinoma (CMS/HCC); Malignant neoplasm [...] on file Legal Sex Female 2:41 PM DEPUTY 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 Gender Identity Not on file Sexual Orientation Straight 02/19/2021 9: 29 AM CDT Occupation Industry Job Start Date Job End Date retired Not on file Not on file Not on file documented as of this encounter Nursing Notes * Batsheva Santizo RN - 05/09/2020 4:00 PM CST Pt tolerated injections well. Aware of next appts. Discharged in stable condition. TY 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 documented in this encounter Plan of Treatment Not on file documented as of this encounter Procedures Procedure Name Priority Date/Time Associated Diagnosis Comments SURGICAL PATHOLOGY Routine 05/06/2020 12 :00 AM CDT Neoplasm of skin documented in this encounter Results * Surgical pathology (05/06/2020 12:00 AM CDT) Tissue 05/06/2020 05/09/2020 3:2 4 AM DEPUTY 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 [facility] - 05/10/2020 12:39 PM DEPUTY 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 EPIC results best viewed via link to PDF [facility] [address] [place] [address] Ave[address] ??[address], [place] [address] ?[email or web address] FINAL REPORT Patient Information: PATIENT NAME: ??VIVODLA. ? SEX: ??F ? : ??1950 (Age: 69) ? Specimen Information: COLLECTED: ??05/06/2020 ? RECEIVED: ??05/09/2020 ? REPORTED: ??05/10/2020 ? Submitting Physician Information: Po Newberry M.D. [place] [address], [address] [place], [place] ??[address], ? DERMATOPATHOLOGY REPORT RESULTS ?? DIAGNOSIS: A. ??SKIN, RIGHT POSTERIOR SHOULDER, SHAVE BIOPSY: ? BENIGN LICHENOID KERATOSIS B. ??SKIN, CHEST, SHAVE BIOPSY: ? BENIGN LICHENOID KERATOSIS ajrr/lpd By this signature, I attest that the above diagnosis is based upon my personal examination of the slides(and/or other material indicated in the diagnosis). Bello Melton M.D. ?? Report Electronically Reviewed and Signed Out By ??Bello Melton M.D. 05/10/2020 12:39:15 CLINICAL INFORMATION A-B. ??R/O BCC. SPECIMEN DATA MICROSCOPIC DESCRIPTION: A-B. ??There is hyperkeratosis, irregular epidermal hyperplasia and a lichenoid inflammatory cell infiltrate that obscures the dermo-epidermal junction where there are numerous necrotic keratinocytes. (D23.9) GROSS DESCRIPTION: A. ??Received in a formalin-containing bottle is a superficial fragment of pale lund and finely scaling, hair-bearing skin measuring 1.3 by 1.1 by 0.1 cm. The surgical margin is inked blue. The specimen is sectioned into 5 pieces and submitted entirely in a single cassette. Due to shrinkage, measurements may be different than those at time of procedure. B. ??Received in a formalin-containing bottle is a superficial fragment of pale lund and finely scaling, hair-bearing skin measuring 0.7 by 0.6 by 0.1 cm. The surgical margin is inked blue. The specimen is sectioned into 3 pieces and submitted entirely in a single cassette. Due to shrinkage, measurements may be different than those at time of procedure. lorened/dxv The Characteristics of some immunohistochemical and immunofluorescence stains as well as in-situ hybridization tests were determined by the [facility] in ongoing quality control supervisor and in compliance with regulations drawn from the Clinical Laboratory Improvement Act of 1988 (CLIA '88). These tests may rely on the use of analyte specific reagents that are subject to specific labeling requirements by the [place] FDA, and may only be performed in a facility that is certified by the [facility] as a high-complexity laboratory under CLIA '88. ??These tests are used for clinical purposes and are not investigational. ??For lab developed tests, the validation has been reviewed; the performance is considered acceptable for patient testing. Po Newberry MD PhD LAB PATHOLOGY OR DERABLES Final Result [facility] [address] [place] [address] documented in this encounter Visit Diagnoses Diagnosis Neoplasm of skin- Primary Neuroendocrine carcinoma (HCC) Other malignant neoplasm [...] 120 mg 120 mg, subcutaneous, Once, On Sat05/09/20 at 1730, For 1 dose, Calcium level should be greater than 8 mg/dl Administer injection in upper arm, abdomen or upper thigh Refrigerate. Allow to stand 15 to 30 mins prior to useIndications:Bone metastasis,Neuro-endocrine carcinoma (HCC) Given 05/09/2020 5:09 PM DEPUTY 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 120 mg Left Lower Abdomen octreotide LAR (SandoSTATIN LAR) extended release intramuscular injection 30 mg 30 mg, intramuscular, Once, On Sat05/09/20 at 1730, For 1 dose, Refrigerate. For IM intragluteal administration only- alternate gluteal sites. Shake.Indications:Malignan t neoplasm metastatic to liver (HCC),Neuroendocrine carcinoma (HCC) Given 05/09/2020 5:34 PM DEPUTY 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 30 mg Right Dorsogluteal/Butto ck documented in this encounter Orders Nursing Count Last Ordered Date First Orde red Date ONCBCN NURSING COMMUNICATION [id number] 1 1 07/09/2019 PHYSICIAN COMMUNICATION ORDER 1 05/09/2020 Appointment Requests Count Last Ordered Date Fi rst Ordered Date ONCBCN INJECTION APPOINTMENT REQUEST 1 08/2019 documented in this encounter Care Teams Bedspread Seamer Relationship Specialty Start Date End Date Julio César Briseno MD PCP - General 10/01/16 Eren Lund MD Referring Physician Medical Oncology 11/25/18 Yohana Bowen MD Radiation Oncologist Radiation Oncology 11/25/18 documented as of this encounter
--- OUTSIDE RECORDS SUMMARY | 2024-06-25 22:31 | XMS_ITS | Encounter Summary ---
Author Organization 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); Neuroendocrine tumor Social History Tobacco Use Types Packs/Day Years Used Date Smoking Tobacco: Never Smokeless Tobacco: Never Alcohol Use Standard Drinks/Week Comments Yes 1 (1 standard drink = 0.6 oz pur e alcohol) Comments No Sex and Gender Information Value Date Recorded Sex Assigned at Not on file Legal Sex Female 2:41 PM TESTING MACHINE OPERATOR Gender Identity Not on file Sexual Orientation Straight 02/19/2021 9: 29 AM CDT Occupation Industry Job Start Date Job End Date retired Not on file Not on file Not on file documented as of this encounter Plan of Treatment Not on file documented as of this encounter Visit Diagnoses Diagnosis Malignant neoplasm metastatic to liver (HCC)- Primary 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
--- OUTSIDE RECORDS SUMMARY | 2024-06-25 22:31 | XMS_ITS | Encounter Summary ---
Author Organization [facility] Address [address] [place] [address] Phone Care Team Providers Care Staff Rn Name Role Phone Julio César Briseno MD Primary Care Provider [phone] Eren Cr MD Unavailable [phone] Yohana Bowen MD Unavailable Reason for Visit * Reason Onset Date Comments confirm surgery 05/27/2020 Encounter Details Date Type Department Care Team (Late st Contact Info) Description 05/27/2020 Telephone [facility] Surgery [address] [facility] 2nd Floor [address] [place] [address] Delfina Galloway RMA confirm surgery Social History Tobacco Use Types Packs/Day Years Used Date Smoking Tobacco: Never Smokeless Tobacco: Never Alcohol Use Standard Drinks/Week Comments Yes 1 (1 standard drink = 0.6 oz pur e alcohol) Comments No Sex and Gender Information Value Date Recorded Sex Assigned at Not on file Legal Sex Female 2:41 PM COMPUTER SPECIALIST Gender Identity Not on file Sexual Orientation Straight 02/19/2021 9: 29 AM CDT Occupation Industry Job Start Date Job End Date retired Not on file Not on file Not on file documented as of this encounter Miscellaneous Notes * Telephone Encounter - Delfina Galloway RMA - 05/27/2020 12:43 PM COMPUTER SPECIALIST Spoke to patient and confirmed prep and surgery for Saturday. Prep: is NPO after midnight, and a test car driver is needed to take them home after procedure. Shower: as directed by CPAP. Confirmed arrival time of [address] [facility], report to Emergency Entrance. Patient was made aware of current visitor policy and verbalized understanding. UTER SPECIALIST documented in this encounter Plan of Treatment Not on file documented as of this encounter Visit Diagnoses Not on filedocumented in this encounter Care Teams Staff Rn Relationship Specialty Start Date End Date Julio César Briseno MD PCP - General 10/01/16 Eren Cr MD Referring Physician Medical Oncology 11/25/18 Yohana Bowen MD Radiation Oncologist Radiation Oncology 11/25/18 documented as of this encounter
--- OUTSIDE RECORDS SUMMARY | 2024-06-25 22:31 | XMS_ITS | Encounter Summary ---
Author Organization [facility] Address [address] [place] [address] Care Team Providers Care Bilingual Speech Therapist Name Role Phone Julio César Briseno MD Primary Care Provider [phone] Eren Cr MD Unavailable [phone] Yohana Bowen MD Unavailable Reason for Referral * Diagnostic Imaging (Routine) - Closed Specialty Diagnoses / Procedures Referred By Contac t Referred To Contact Diagnoses Neuroendocrine carcinoma (HCC) Bone metastasis Procedures XR Humerus Left 2 or More Views Sabrina Willard NP [address] [place] [address] Phone: tel: fax: [address] [address] Referral ID Status Reason Start Date Expiration Date Visits Re quested Visits Authorized [id number] Closed 02/15/2020 03/16/2021 1 1 Reason for Visit * Diagnostic Imaging (Routine) - Closed Specialty Diagnoses / Procedures Referred By Contac t Referred To Contact Diagnoses Neuroendocrine carcinoma (HCC) Bone metastasis Procedures XR Humerus Left 2 or More Views Sabrina Willard NP [address] [place] [address] Phone: tel: fax: [facility] [place] [address] Referral ID Status Reason Start Date Expiration Date Visits Re quested Visits Authorized [id number] Closed 02/15/2020 03/16/2021 1 1 Encounter Details Date Type Department Care Team (Latest Contact Info) Description 05/03/2020 11:24 AM CDT - 05/03/2020 11:59 PM CDT Hospital Encounter 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 Gender Identity Not on file Sexual [...] capsuleIndications :supplement Take 1 tablet by mouth still runner before breakfast 07/04/2016 4 cholecalciferol (VITAMIN D-3) 2,000 unit capsule Take 1 capsule (2,000 Units total) by mouth daily 30 capsule 2 04/25/2019 3 cholestyramine (QUESTRAN) 4 gram packet Take 1 packet by mouth 3 (three) times a day with meals 270 packet 3 09/04/2019 2 clotrimazole-betam ethasone (LOTRISONE) cream Apply 1 Application topically daily as needed (rash) 4 coenzyme [id number] 100-5 mg-unit capsuleIndications :supplement Take 1 tablet by mouth still runner before breakfast [address] (CYMBALTA) 30 mg capsule [...] for 14 days 28 tablet 04/24/2019 2 documented as of this encounter Discharge Disposition Disposition Code Departure Means Destination Discharge to home or self care documented in this encounter Plan of Treatment Not on file documented as of this encounter Procedures Procedure Name Priority Date/Time Associated Diagnosis Comments XR HUMERUS LEFT 2 OR MORE VIEWS Schedule Routine, Read Routine (OP Routine) 05/03/2020 11:41 AM CDT Neuroendocrine carcinoma (CMS/HCC) Bone metastasis (CMS/HCC) documented in this encounter Results * XR Humerus Left 2 or More Views (05/03/2020 11:41 AM CDT) Anatomical Region Laterality Modality Upper Extremities, Upper Arm Left Com puted Radiography 05/03/2020 11:5 7 AM CDT Impressions 05/03/2020 11:57 AM CDT 1. ??Radiographically occult metastatic lesion in the left humerus. Electronically signed by: Petros Viveros M.D. Narrative 05/03/2020 11:57 AM CDT EXAMINATION: Left humerus 2 or more views HISTORY: ??Metastatic neuroendocrine tumor FINDINGS: 2 views of the left humerus are submitted for interpretation. Comparison is made to PET/CT January 25, 2020. There is no radiographically evident lesion of the left humerus. The known mid shaft lesion is occult on this examination. No fracture is seen. Procedure Note Petros Viveros MD - 05/03/2020 EXAMINATION: Left humerus 2 or more views HISTORY: Metastatic neuroendocrine tumor FINDINGS: 2 views of the left humerus are submitted for interpretation. Comparison is made to PET/CT January 25, 2020. There is no radiographically evident lesion of the left humerus. The known mid shaft lesion is occult on this examination. No fracture is seen. IMPRESSION: 1. Radiographically occult metastatic lesion in the left humerus. Electronically signed by: Petros Viveros M.D. Sabrina Willard PIT SHOVELER IMG XR PROCEDURES Final Resu lt documented in this encounter Visit Diagnoses Diagnosis Neuroendocrine carcinoma (HCC) Other malignant neoplasm of unspecified site Bone metastasis Secondary malignant neoplasm of bone and bone marrow documented in this encounter Care Teams Bilingual Speech Therapist Relationship Specialty Start Date End Date Julio César Briseno MD PCP - General 10/01/16 Eren Cr MD Referring Physician Medical Oncology 11/25/18 Yohana Bowen MD Radiation Oncologist Radiation Oncology 11/25/18 documented as of this encounter
--- OUTSIDE RECORDS SUMMARY | 2024-06-25 22:31 | XMS_ITS | Encounter Summary ---
Author Organization [facility] Address [address] [place] [address] Phone Care Team Providers Care Ceo Name Role Phone Julio César Briseno MD Primary Care Provider Eren Cr MD Unavailable [phone] Yohana Bowen MD Unavailable Reason for Visit * Reason Onset Date Comments COVID screening 05/23/2020 Encounter Details Date Type Department Care Team (Late st Contact Info) Description 05/23/2020 Telephone [facility] Surgery [address] [facility] 2nd Floor [address] [place] [address] Delfina Galloway, ISABELLA COVID screening Social History Tobacco Use Types Packs/Day Years Used Date Smoking Tobacco: Never Smokeless Tobacco: Never Alcohol Use Standard Drinks/Week Comments Yes 1 (1 standard drink = 0.6 oz pur e alcohol) Comments No Sex and Gender Information Value Date Recorded Sex Assigned at Not on file Legal Sex Female 2:41 PM 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 Exposed to COVID positive person on 05/13. Negative test results came back today. Asked she bring an extra appliance. R WORKER TRANSFER [employer]AY documented in this encounter Plan of Treatment Not on file documented as of this encounter Visit Diagnoses Not on filedocumented in this encounter Care Teams Ceo Relationship Specialty Start Date End Date Julio César Briseno MD PCP - General 10/01/16 Eren Cr MD Referring Physician Medical Oncology 11/25/18 Yohana Bowen MD Radiation Oncologist Radiation Oncology 11/25/18 documented as of this encounter
--- OUTSIDE RECORDS SUMMARY | 2024-06-25 22:31 | XMS_ITS | Encounter Summary ---
Author Organization [facility] Healthcare Address [address] [place] [address] Care Team Providers Care Mobile Home Set Up Person Name Role Phone Julio César Briseno MD Primary Care Provider [phone] Eren Cr MD Unavailable [phone] Yohana Bowen MD Unavailable Reason for Referral * MRI/CAT/PET Scan (Routine) - Closed Specialty Diagnoses / Procedures Referred By Contac t Referred To Contact Radiology Diagnoses Neuroendocrine carcinoma (HCC) Procedures CT soft tissue neck with contrast Sabrina Willard NP [address] [place] [address] Phone: tel: fax: [address] [address] Referral ID Status Reason Start Date Expiration Date Visits Re quested Visits Authorized [id number] Closed 02/15/2020 03/16/2021 1 1 * Diagnostic Imaging (Routine) - Closed Specialty Diagnoses / Procedures Referred By Contac t Referred To Contact Radiology Diagnoses Neuro-endocrine carcinoma (HCC) Neuroendocrine carcinoma (HCC) 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) Procedures CT Chest Abdomen Pelvis W Contrast Yohana Bowen MD [facility] [address] [place] [address] Phone: tel: fax: [address] [phone] Referral ID Status Reason Start Date Expiration Date Visits Re quested Visits Authorized [id number] Closed 02/05/2020 03/06/2021 1 1 Reason for Visit * MRI/CAT/PET Scan (Routine) - Closed Specialty Diagnoses / Procedures Referred By Contac t Referred To Contact Radiology Diagnoses Neuroendocrine carcinoma (HCC) Procedures CT soft tissue neck with contrast Sabrina Willard NP [address] [place] [address] Phone: tel: fax: [address] [phone] Referral ID Status Reason Start Date Expiration Date Visits Re quested Visits Authorized [id number] Closed 02/15/2020 03/16/2021 1 1 Encounter Details Date Type Department Care Team (Latest Contact Info) Description 05/03/2020 11:14 AM CDT - 05/03/2020 11:23 AM CDT Hospital Encounter [facility] [address] [place] [address] Sabirna Willard NP [address] [place] [address] Neuro-endocrine carcinoma (CMS/HCC); Neuroendocrine carcinoma (CMS/HCC); Malignant neoplasm metastatic [...] file Legal Sex Female 2:41 PM TECHNICAL SALES 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 Gender Identity Not on file [...] capsuleIndications :supplement Take 1 tablet by mouth loan clerk before breakfast 07/04/2016 4 cholecalciferol (VITAMIN D-3) 2,000 unit capsule Take 1 capsule (2,000 Units total) by mouth daily 30 capsule 2 04/25/2019 3 cholestyramine (QUESTRAN) 4 gram packet Take 1 packet by mouth 3 (three) times a day with meals 270 packet 3 09/04/2019 2 clotrimazole-betam ethasone (LOTRISONE) cream Apply 1 Application topically daily as needed (rash) 4 coenzyme [id number] E 100-5 mg-unit capsuleIndications :supplement Take 1 tablet by mouth loan clerk before breakfast [address] (CYMBALTA) 30 [...] CONTRAST Schedule Routine, Read Routine (OP Routine) 05/03/2020 12:16 PM CDT Neuro-endocrine carcinoma (CMS/HCC) Neuroendocrine carcinoma (CMS/HCC) Malignant neoplasm metastatic to liver (CMS/HCC) CT SOFT TISSUE NECK W CONTRAST Schedule URIEL, Read URIEL (Appt Today, Awaiting Results) 05/03/2020 12:16 PM CDT Neuroendocrine carcinoma (CMS/HCC) documented in this encounter Results * CT soft tissue neck with contrast (05/03/2020 12:16 PM CDT) Anatomical Region Laterality Modality Head and Neck N/A Computed Tomogra phy 05/03/2020 2:12 PM CDT Impressions 05/03/2020 2:14 PM CDT 1. ??Right C7 inferior articular facet and T1 right pedicle sclerotic lesion corresponding to a focus of increased uptake on recent DOTATATE PET/CT. 2. ??Interval increase in size of suspicious right supraclavicular lymph node, recommend attention on follow-up. ??No other concerning lymph nodes are identified. Dictated by: Neto Silva M.D. The radiology attending physician has personally reviewed this study, and had reviewed and/or edited this written report and agrees with it. Electronically signed by: Wiliam Robles M.D, PHD Narrative 05/03/2020 2:14 PM CDT EXAMINATION: CT of the neck [...] are normal. The limited view of the [place] is unremarkable. The visualized portions [...] increased activity uptake on recent DOTATATE PET/CT. ??Multiple subcentimeter left lobe thyroid nodules. ??A few subcentimeter paratracheal lymph nodes are indeterminate. Procedure Note Wiliam Robles MD PhD - 05/03/2020 EXAMINATION: CT of the neck with contrast [...] are normal. The limited view of the [place] is unremarkable. The visualized portions [...] few subcentimeter paratracheal lymph nodes are indeterminate. IMPRESSION: 1. Right C7 inferior articular facet [...] Electronically signed by: Wiliam Robles M.D, PHD Sabrina Willard NP IMG CT PROCEDURES Final Resu lt * CT Chest Abdomen Pelvis W Contrast (05/03/2020 12:16 PM CDT) Anatomical Region Laterality Modality Body N/A Computed Tomogra phy 05/03/2020 12:2 9 PM CDT Impressions 05/03/2020 12:29 PM CDT 1. Essentially no change in multiple hepatic metastases and omental metastases. Metastasis adjacent to the vaginal fornix is also unchanged. 2. No thoracic metastases. Electronically signed by: Fly Benavidez M.D. Narrative 05/03/2020 12:29 PM CDT EXAMINATION: CT CHEST, ABDOMEN AND PELVIS WITH INTRAVENOUS CONTRAST TECHNIQUE: Standard CT of the chest, abdomen and pelvis was performed after the administration of intravenous contrast. ??Studies were performed after the administration of the following amount of Optiray 350: ??100 mL HISTORY: Neuroendocrine carcinoma FINDINGS: Comparison is [...] windows do not demonstrate any osseous lesion. Procedure Note Fly Benavidez MD - 05/03/2020 EXAMINATION: CT CHEST, ABDOMEN AND PELVIS WITH [...] windows do not demonstrate any osseous lesion. IMPRESSION: 1. Essentially no change in multiple hepatic metastases and omental metastases. Metastasis adjacent to the vaginal fornix is also unchanged. 2. No thoracic metastases. Electronically signed by: Fly Benavidez M.D. Yohana Bowen MD [facility] [place] PROCEDURES Final Result documented in this encounter Visit [...] intravenous, Once in imaging, contrast, Starting on Tu05/03/20 at 1214, For 1 dose Given 05/03/2020 12:15 PM CDT 75 mL ioversoL (OPTIRAY 350) syringe syringe 75 mL 75 mL, intravenous, Once in imaging, contrast, Starting on 05/03/20 at 1214, For 1 dose Given 05/03/2020 12:14 PM CDT 75 mL documented in this encounter Orders Medications Ordered That Brett ht Not Have Been Administered Count Last Ordered Date First Ordered Date ioversoL (OPTIRAY 350) syrin ge syringe 75 mL 1 05/03/2020 documented in this encounter Care Teams Mobile Home Set Up Person Relationship Specialty Start Date End Date Julio César Briseno MD PCP - General 10/01/16 Eren Cr MD Referring Physician Medical Oncology 11/25/18 Yohana Bowen MD Radiation Oncologist Radiation Oncology 11/25/18 documented as of this encounter
--- OUTSIDE RECORDS SUMMARY | 2024-06-25 22:31 | XMS_ITS | Encounter Summary ---
Author Organization [facility] Healthcare Address [address] [place] [address] Care Team Providers Care Applied Computer Science Professor Name Role Phone Julio César Briseno MD Primary Care Provider [phone] Eren Cr MD Unavailable [phone] Yohana Bowen MD Unavailable Encounter Details Date Type Department Care Team (Late st Contact Info) Description 05/27/2020 3:00 PM MOTOR EQUIPMENT COMMANDING OFFICER Lab [address] [address] Pre-procedure lab exam Social History Tobacco Use Types Packs/Day Years Used Date Smoking Tobacco: Never Smokeless Tobacco: Never Alcohol Use Standard Drinks/Week Comments Yes 1 (1 standard drink = 0.6 oz pur e alcohol) Comments No Sex and Gender Information Value Date Recorded Sex Assigned at Not on file Legal Sex Female 2:41 PM MOTOR EQUIPMENT COMMANDING OFFICER Gender Identity Not on file Sexual Orientation Straight 02/19/2021 9: 29 AM CDT Occupation Industry Job Start Date Job End Date retired Not on file Not on file Not on file documented as of this encounter Plan of Treatment Not on file documented as of this encounter Procedures Procedure Name Priority Date/Time Associated Diagnosis Comments COVID-19 CORONAVIRUS RNA Routine 05/27/2020 9:36 AM MOTOR EQUIPMENT COMMANDING OFFICER Pre-procedure lab exam documented in this encounter Results * COVID-19 Coronavirus RNA Nasopharyngeal (05/27/2020 9:36 AM MOTOR EQUIPMENT COMMANDING OFFICER) COVID-19 RNA Not Detected [facility] Comment: Interpretive Data Testing performed at [facility] Molecular Infectious Disease Laboratory. The 2019-Novel Coronavirus [...] revised on 2019. First COVID-19 test? No [facility] Employeed in healthcare? No [facility] status? No [facility] Group care resident? No [facility] Hospitalized? No [facility] Is patient in ICU? No [facility] Symptomatic as defined by CDC? No [facility] Nasopharyngeal 05/27/2020 9: 36 AM MOTOR EQUIPMENT COMMANDING OFFICER 05/28/2020 8:36 AM MOTOR EQUIPMENT COMMANDING OFFICER Narrative [facility] - 05/29/2020 6:35 AM MOTOR EQUIPMENT COMMANDING OFFICER What is the reason for testing?->Screening prior to scheduled procedure or surgery us Greyson Reeves MD LAB MICROBIOLOGY - GENERAL O RDERABLES Final Result [facility] Department [place] [address] documented in this encounter Visit Diagnoses Diagnosis Pre-procedure lab exam Pre-procedural laboratory examination documented in this encounter Care Teams Applied Computer Science Professor Relationship Specialty Start Date End Date Julio César Briseno MD PCP - General 10/01/16 Eren Cr MD Referring Physician Medical Oncology 11/25/18 Yohana Bowen MD Radiation Oncologist Radiation Oncology 11/25/18 documented as of this encounter
--- OUTSIDE RECORDS SUMMARY | 2024-06-25 22:31 | XMS_ITS | Encounter Summary ---
Author Organization [facility] Address [address] [place] [address] Phone Care Team Providers Care Masonry Contractor Administrator Name Role Phone Julio César Briseno MD Primary Care Provider [phone] Eren Cr MD Unavailable [phone] Yohana Bowen MD Unavailable Reason for Visit * Reason Comments Ostomy Care Encounter Details Date Type Department Care Team (Late st Contact Info) Description 05/24/2020 10:00 AM UX INTERACTION DESIGNER Office Visit [facility] Surgery [address] [place] [address] Greyson Reeves MD [address] [facility] [id number] [place] 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) (Primary Dx); Colostomy complication, unspecified (CMS/HCC) Social History Tobacco Use Types Packs/Day Years Used Date Smoking Tobacco: Never Smokeless Tobacco: Never Alcohol Use Standard Drinks/Week Comments Yes 1 (1 standard drink = 0.6 oz pur e alcohol) Comments No Sex and Gender Information Value Date Recorded Sex Assigned at Not on file Legal Sex Female 2:41 PM UX INTERACTION DESIGNER Gender Identity Not on file Sexual Orientation Straight 02/19/2021 9: 29 AM CDT Occupation Industry Job Start Date Job End Date retired Not on file Not on file Not on file documented as of this encounter Last Filed Vital Signs Vital Sign Reading Time Taken Comments Blood Pressure 173/75 05/24/2020 8:58 AM UX INTERACTION DESIGNER Pulse 75 05/24/2020 8:58 AM UX INTERACTION DESIGNER Temperature 36.6 ??C (97.8 ??F) 05/24/2020 8 :58 AM UX INTERACTION DESIGNER Respiratory Rate 12 05/24/2020 8:58 AM UX INTERACTION DESIGNER Oxygen Saturation 97% 05/24/2020 8:5 8 AM UX INTERACTION DESIGNER Inhaled Oxygen Concentration - - Weight 84.1 kg (185 lb 6.4 oz) 05/24/2020 8:58 AM UX INTERACTION DESIGNER with shoes on Height - - Body Mass Index 32.84 04/14/2020 1:49 PM CDT documented in this encounter Progress Notes * Greyson Reeves MD - 05/24/2020 10:00 AM CST Colorectal Surgery Clinic Visit Chief Complaint: [...] SURGERY Gallbladder Surgery - (Added by SONIYA Beyer) ? ? IR PICC LINE PLACEMENT > 5 YEARS N/A 12/23/2018 ? ? IR PICC LINE PLACEMENT > 5 YEARS N/A 02/17/2019 ? ? IR PICC LINE PLACEMENT > 5 YEARS N/A 06/09/2019 ? ? IR PICC LINE PLACEMENT > 5 YEARS N/A 08/04/2019 ? ? CT REMOVAL OF TONSILS,<12 Y/O Tonsillectomy - (Added by TW Conv) ??? CT TOTAL ABDOM HYSTERECTOMY Hysterectomy - (Added by TW Conv) HOME MEDICATIONS : ascorbic acid, vitamin C, 500 mg capsule cholecalciferol (VITAMIN D-3) 2,000 unit capsule cholestyramine (QUESTRAN) 4 gram packet clotrimazole-betamethasone (LOTRISONE) cream coenzyme H24-qopqige E (CO Q-10, WITH VIT E,) 100-5 [...] operating room for fulguration of the lesions. 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
--- OUTSIDE RECORDS SUMMARY | 2024-06-25 22:31 | XMS_ITS | Encounter Summary ---
Author Organization [facility] Address [address] [place] [address] Phone Care Team Providers Care Rip Machine Operator Name Role Phone Julio César Briseno MD Primary Care Provider Eren Cr MD Unavailable [phone] Yohana Bowen MD Unavailable Reason for Visit * Reason Onset Date Comments Lab Results 05/25/2020 Encounter Details Date Type Department Care Team (Late st Contact Info) Description 05/25/2020 Telephone [facility] Oncology [address] [place] [address] Eren Cr MD [address] [place], [place] [id number] Lab Results Social History Tobacco Use Types Packs/Day Years Used Date Smoking Tobacco: Never Smokeless Tobacco: Never Alcohol Use Standard Drinks/Week Comments Yes 1 (1 standard drink = 0.6 oz pur e alcohol) Comments No Sex and Gender Information Value Date Recorded Sex Assigned at Not on file Legal Sex Female 2:41 PM PRODUCT SAFETY 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 Gender Identity Not on file Sexual Orientation Straight 02/19/2021 9: 29 AM CDT Occupation Industry Job Start Date Job End Date retired Not on file Not on file Not on file documented as of this encounter Miscellaneous Notes * Telephone Encounter - Sola Heredia - 05/25/2020 10:30 AM CST Spoke with patient and informed her of normal calcium level from yesterday lab draw. Patient very thankful for call. She will have repeat labs with injection apt on 06/06. She knows to call me/officein the interim for any problems, questions of concerns. UCT SAFETY 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 documented in this encounter Plan of Treatment Not on file documented as of this encounter Visit Diagnoses Not on filedocumented in this encounter Care Teams Rip Machine Operator Relationship Specialty Start Date End Date Julio César Briseno MD PCP - General 10/01/16 Eren Cr MD Referring Physician Medical Oncology 11/25/18 Yohana Bowen MD Radiation Oncologist Radiation Oncology 11/25/18 documented as of this encounter
--- OUTSIDE RECORDS SUMMARY | 2024-06-25 22:31 | XMS_ITS | Encounter Summary ---
Author Organization [facility] Address [address] [place] [address] Phone Care Team Providers Care Zipper Sewing Machine Operator Name Role Phone Julio César Briseno MD Primary Care Provider Eren Lund MD Unavailable [phone] Yohana Bowen MD Unavailable Reason for Visit * Reason Comments Skin Exam Encounter Details Date Type Department Care Team (Late st Contact Info) Description 05/06/2020 2:00 PM CDT Office Visit [facility] [address] [place] [phone] Po Newberry MD PhD [address] [place] [phone] Neoplasm of skin (Primary Dx); Seborrheic keratosis; Hand dermatitis; Family history of melanoma Social History Tobacco Use Types Packs/Day Years Used Date Smoking Tobacco: Never Smokeless Tobacco: Never Alcohol Use Standard Drinks/Week Comments Yes 1 (1 standard drink = 0.6 oz pur e alcohol) Comments No Sex and Gender Information Value Date Recorded Sex Assigned at Not on file Legal Sex Female 2:41 PM MEDICAL CSR Gender Identity Not on file Sexual Orientation Straight 02/19/2021 9: 29 AM CDT Occupation Industry Job Start Date Job End Date retired Not on file Not on file Not on file documented as of this encounter Ordered Prescriptions Prescription Sig Dispense Quantity Refills Last Filled Start Date End Date triamcinolone (KENALOG) 0.1 % ointment Apply to itchy rash on hands twice daily until improved 454 g 1 05/06/2020 4 documented in this encounter Progress Notes * Po Newberry MD PhD - 05/06/2020 2:00 PM CDT Images from the original note were not included. La Chung [id number] 05/06/20 CHIEF COMPLAINT: FBSE, spot on right shoulder HISTORY OF PRESENT ILLNESS La Chung is a 69 y.o. 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 Presents to clinic with her daughter. Pt states to have a spot on her R posterior shoulder, present for a long time, unsure of what it is. Points out some spots on her lower legs, scaly at times, otherwise asymptomatic. When asked about the spot on her chest, she notes to have had it for a while. Reports h/o itch on her hands, intermittently. Inquires treatment. No other associated symptoms, exacerbating or alleviating factors. No other painful, bleeding or pruritic areas. No other new, changing or otherwise suspicious lesions. HISTORY Medications and allergies reviewed in chart Past medical, family and social history reviewed and noncontributory unless noted in HPI. Oncology hx: Dx: Neuroendocrine carcinoma 01/25/2020: Dotatate PET notes ??Increased size and intensity of uptake in a left humeral metastasis. ??New right C7 metastasis. ??Several liver lesions appear new, within the anterior superior left lobe. These sites are concerning for progression of disease. Decreased uptake and conspicuity of multiple bilateral lung nodules. Oncologist: Dr. Eren Lund Jr. History of NMSC: no History of Melanoma: yes, daughter Family Hx of MM: no Sunscreen use: yes Past Medical History: Diagnosis Date ??? Cancer (CMS/HCC) ??? Family history of malignant hyperthermia grandson - questionable ??? GERD (gastroesophageal reflux disease) ??? Hypercholesteremia ??? Hypertension ??? Motion sickness ??? Personal history of other diseases of the digestive system History of hemorrhoids - (Added by TW Conv) ??? PONV (postoperative nausea and vomiting) REVIEW OF SYSTEMS Dermatological ROS: positive for skin growth negative for rash General ROS: negative for - chills, fatigue, fever, night sweats or weight loss Psychological ROS: negative Respiratory ROS: no cough, shortness of breath, or wheezing Cardiovascular ROS: no chest pain or dyspnea on exertion Gastrointestinal ROS: no abdominal pain, change in bowel habits, or black or bloody stools PHYSICAL EXAM Gen and Cardio: Well-developed and [...] with exception of these notable exam findings: Mccoy sclerotic 1cm plaque on the R posterior shoulder Stuck on skin colored plaque on the b/l lower legs Mccoy scaly papule on the chest Mccoy scaly patches on hands b/l ASSESSMENT AND PLAN 1. Neoplasm A. R posterior shoulder B. Cental chest - R/o SCC x 2 - Shave biopsy performed today - Wound care instructions provided - See procedure note below 2. Seborrheic Keratosis, b/l lower legs - Benign, reassurance 3. Hand dermatitis - b/l hands - Pt educated on possible causes and prognosis of condition - Gentle skin care, including minimal soap usage recommended. Frequent emollient use discussed withpatient - Start TMC 0.1% oint to AA BID, prn itch; SER including thinning of skin and striae 4. FHx MM - Photo protect - Continue monthly SSE and yearly MD FBSE PROCEDURE: Shave Biopsy DIAGNOSIS: Neoplasm LOCATION: A. R posterior shoulder B. Chest DESCRIPTION OF PROCEDURE: Informed consent was obtained, including discussion of risks including bleeding, scarring, infection, and recurrence/persistence. York Protocol Time-Out performed. The lesional area was prepped with hibiclens prior to infiltration with 1% lidocaine with epinephrine,1:100,000 x 3 ml. The lesion was biopsied with a 15 blade. Hemostasis was obtained with aluminum chloride. The specimen was placed in formalin and sent for routine histopathological evaluation. Therewere no complications. The wound was then dressed with sterile petrolatum and a sterile dressing. Wound care instructions were provided in verbal and written form including a 24-hour contact number in case of emergency. The patient will be notified by one of the clinical staff (upon return to clinic or by phone) regarding the biopsy results and the need for further treatment. Return visit: pending pathology or 1 yr otherwise Patient was instructed to return sooner should they develop any new, changing and/or worsening lesions, side effects of any recommended treatments, or as needed. Anil Rajan MD Dermatology Resident, PGY-4 I have seen and examined the patient. I agree with the findings and plan of care as discussed with the resident/fellow. I was present for the entire procedure. Po Newberry MD PhD documented in this encounter Plan of Treatment Not on file documented as of this encounter Results * Surgical pathology (05/06/2020 12:00 AM CDT) Tissue 05/06/2020 05/09/2020 3:2 4 AM MEDICAL CSR [facility] - 05/10/2020 12:39 PM MEDICAL CSR [facility] results best viewed via link to PDF [facility] [address] [place] [address] , ??[address] [place] [id number] ?[email or web address] [email or web address] REPORT Patient Information: PATIENT NAME: ??LA CHUNG ? SEX: ??F ? : ??1950 (Age: 69) ? Specimen Information: COLLECTED: ??05/06/2020 ? RECEIVED: ??05/09/2020 ? REPORTED: ??05/10/2020 ? Submitting Physician Information: Po Newberry M.D. [place] [address], [address] [place], ? DERMATOPATHOLOGY REPORT RESULTS ?? DIAGNOSIS: A. [...] bottle is a superficial fragment of pale ulnd and finely scaling, hair-bearing skin measuring 0.7 [...] in-situ hybridization tests were determined by the [facility] in ongoing manufacturing quality engineer and in compliance with regulations drawn from the Clinical Laboratory Improvement Act of 1988 (CLIA '88). These tests may rely on the use of analyte specific reagents that are subject to specific labeling requirements by the US FDA, and may only be performed in a facility that is certified by the [facility] as a high-complexity laboratory under CLIA '88. ??These tests are used for clinical purposes and are not investigational. ??For lab developed tests, the validation has been reviewed; the performance is considered acceptable for patient testing. 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
--- OUTSIDE RECORDS SUMMARY | 2024-06-25 22:31 | XMS_ITS | Encounter Summary ---
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) Procedures [place] OCTREOTIDE INJECTION, DEPOT Octreotide 28 Day Cycles - Carcinoid Eren Cr MD [address] [facility] [address] [place] [address] Phone: tel: fax: [facility] [address] [address] Phone: tel: fax: Referral ID Status Reason Start Date Expiration Date V isits Requested Visits Authorized [id number] Authorized 11/28/2017 02/05/2025 1 150 Encounter Details Date Type Department Care Team (Late st Contact Info) Description 05/09/2020 2:30 PM HOME THEATER INSTALLER Lab [facility] On[facility] 7th [place] [address] [place] [address] Neuroendocrine carcinoma (CMS/HCC); Malignant neoplasm metastatic to liver (CMS/HCC) Social History Tobacco Use Types Packs/Day Years Used Date Smoking Tobacco: Never Smokeless Tobacco: Never Alcohol Use Standard Drinks/Week Comments Yes 1 (1 standard drink = 0.6 oz pur e alcohol) Comments No Sex and Gender Information Value Date Recorded Sex Assigned at Not on file Legal Sex Female 2:41 PM HOME THEATER INSTALLER Gender Identity Not on file Sexual Orientation Straight 02/19/2021 9: 29 AM CDT Occupation Industry Job Start Date Job End Date retired Not on file Not on file Not on file documented as of this encounter Plan of Treatment Not on file documented as of this encounter Procedures Procedure Name Priority Date/Time Associated Diagnosis Comments DIFFERENTIAL AUTO Routine 05/09/2020 2:3 0 PM HOME THEATER INSTALLER Neuroendocrine carcinoma (CMS/HCC) Malignant neoplasm metastatic to liver (CMS/HCC) CHROMOGRANIN A Routine 05/09/2020 2:30 PM HOME THEATER INSTALLER Neuroendocrine carcinoma (CMS/HCC) Malignant neoplasm metastatic to liver (CMS/HCC) CBC WITH AUTO DIFFERENTIAL Routine 05/09/2020 2:30 PM HOME THEATER INSTALLER Neuroendocrine carcinoma (CMS/HCC) Malignant neoplasm metastatic to liver (CMS/HCC) COMPREHENSIVE METABOLIC PANEL Routine 05/09/2020 2:30 PM HOME THEATER INSTALLER Neuroendocrine carcinoma (CMS/HCC) Malignant neoplasm metastatic to liver (CMS/HCC) documented in this encounter Results * (ABNORMAL) Differential, auto (05/09/2020 2:30 PM HOME THEATER INSTALLER) Neutrophil abs 3.8 1.8 - 6.6 K/cumm JASON BLACK Comment:Testing performed by : [facility], [address] [place] [phone] Lymphocyte abs 0.6(L) 1.2 - 3.3 K/cumm JASON BLACK Comment:Testing performed by : [facility], [facility] [phone] Monocyte abs 0.8 0.2 - 1.2 K/cumm JASON LEAVITT Comment:Testing performed by : [facility], [address] [place] [phone] Eosinophil abs 0.1 0.0 - 0.5 K/cumm CERNER BJ Comment:Testing performed by : [facility], [address] [place] [phone] Basophil abs 0.0 0.0 - 0.2 K/cumm CERNER BJ Comment:Testing performed by : [facility], [address] [place] [phone] Neutrophil pct 72.8 % CERNER BJ Comment: Interpretive Data Percent cell count reference ranges are not reported, since discordance with absolute values may lead to misinterpretation of CBC data. Current Interpretive Data was last revised on 2017. Testing performed by: [facility], [address] [place] [phone] Lymphocyte pct 11.0 % CERNER BJ Comment: Interpretive Data Percent cell count reference ranges are not reported, since discordance with absolute values may lead to misinterpretation of CBC data. Current Interpretive Data was last revised on 2017. Testing performed by: [facility], [address] [place] [phone] Monocyte pct 14.7 % CERNER BJ Comment:Testing performed by : [facility], [address] [place] [phone] Eosinophil pct 1.1 % CERNER BJ Comment:Testing performed by : [address] [phone] Basophil pct 0.4 % CERNER BJ Comment:Testing performed by : [facility], [address] [place] [phone] Blood specimen (specimen) 05/09/2020 2:30 PM HOME THEATER INSTALLER 05/09/2020 2:32 PM HOME THEATER INSTALLER Sabrina Willard NP LAB BLOOD ORDERABLES Final R esult [facility] One [facility] [place] [address] * (ABNORMAL) CBC with auto differential (05/09/2020 2:30 PM HOME THEATER INSTALLER) WBC 5.3 3.8 - 9.8 K/cumm CERNER BJ Comment:Testing performed by : [place] [phone] Hgb 13.6 12.1 - 15.1 g/dL CERNER BJ Comment:Testing performed by : [place] [phone] Hct 39.4 36.1 - 44.3 % CERNER BJH Comment:Testing performed by : [place] [phone] Plt 136(L) 140 - 440 K/cumm CERNER BJ Comment:Testing performed by : [place] [phone] MPV 7.5 6.8 - 10.4 fL CERNER BJ Comment:Testing performed by : [place] [id number] RBC 4.26 3.90 - 5.00 M/cumm CERNER BJ Comment:Testing performed by : [place] [phone] MCV 92.5 80.0 - 97.6 fL CERNER BJ Comment:Testing performed by : [place] [phone] MCH 31.9 26.7 - 33.7 pg CERNER BJ Comment:Testing performed by : [place] [phone] MCHC 34.5 32.7 - 35.5 g/dL CERNER BJ Comment:Testing performed by : [place] [phone] RDW CV 13.4 11.8 - 14.6 % CERNER BJ Comment:Testing performed by : [place] [phone] NRBC abs 0.01 0.00 - 0.01 K/cumm CERNER BJH Comment:Testing performed by : [facility], [address], [place] [address] Blood specimen (specimen) 05/09/2020 2:30 PM HOME THEATER INSTALLER 05/09/2020 2:32 PM HOME THEATER INSTALLER Sabrina Willard NP LAB BLOOD ORDERABLES Final R esult [facility] One [facility] Department [place] [address] * (ABNORMAL) Comprehensive metabolic panel (05/09/2020 2:30 PM HOME THEATER INSTALLER) Sodium 142 135 - 145 mmol/L JASON [facility] Comment:Testing performed by : [facility], [address] [place] [phone] Potassium, pl 4.3 3.3 - 4.9 mmol/L JASON [facility] Comment:Testing performed by : [address] [phone] Chloride 108 97 - 110 mmol/L JASON [facility] Comment:Testing performed by : [facility], [address] [place] [phone] CO2 28 22 - 32 mmol/L CERMINNIE [facility] Comment:Testing performed by : [address] [phone] Anion gap 6 2 - 15 mmol/L JASON [facility] Comment:Testing performed by : [address] [phone] BUN 12 8 - 25 mg/dL JASON [facility] Comment:Testing performed by : [facility], [address] [place] [phone] Creatinine 0.82 0.60 - 1.10 mg/dL JASON [facility] Comment:Testing performed by : [address] [phone] Glucose 121 70 - 199 mg/dL JASON [facility] [...] was last revised 2017. Testing performed by: [facility], [address] [place] [phone] Calcium 11.1(H) 8.5 - 10.3 mg/dL CERNER [facility] Comment:Testing performed by : [facility], [address] [place] [phone] Bilirubin, total 0.4 0.1 - 1.2 mg/dL CERNER BJ Comment:Testing performed by : [address] [phone] Protein, pl 7.2 6.5 - 8.5 g/dL CERNER BJ Comment:Testing performed by : [address] [phone] Albumin 4.4 3.5 - 5.0 g/dL CERNER BJ Comment:Testing performed by : [facility], [address] [place] [phone] Alk phos 105 40 - 130 Units/L CERNER BJ Comment:Testing performed by : [address] [phone] ALT 17 7 - 45 Units/L CERNER BJ Comment:Testing performed by : [address] [phone] AST 22 10 - 45 Units/L CERNER [facility] Comment:Testing performed by : [facility], [address] [place] [phone] Blood specimen (specimen) 05/09/2020 2:30 PM HOME THEATER INSTALLER 05/09/2020 2:32 PM HOME THEATER INSTALLER us Sabrina Willard NP LAB BLOOD ORDERABLES Final R esult [facility] One [facility] Department [place] [address] * (ABNORMAL) Chromogranin A (05/09/2020 2:30 PM HOME THEATER INSTALLER) Chromogranin A 344(H) <93 ng/mL JASON LEAVITT Comment: Impaired renal or hepatic function or treatment with proton pump inhibitors may result in artifactual elevations of Chromogranin A. ADDITIONAL INFORMATION This test was developed and its performance characteristics determined by [facility] in a manner consistent with CLIA requirements. [...] absence of malignant disease. Test Performed by: [facility] [place] [address] Personal Counselor: Immanuel Novak M.D. 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
--- OUTSIDE RECORDS SUMMARY | 2024-06-25 22:31 | XMS_ITS | Encounter Summary ---
Author Organization [facility] Address [address] [place] [address] Phone Care Team Providers Care Direct Support Professional Name Role Phone Julio César Briseno MD Primary Care Provider [phone] Eren Cr MD Unavailable [phone] Yohana Bowen MD Unavailable Reason for Visit * Reason Onset Date Comments COVID19 exposure 05/20/2020 Encounter Details Date Type Department Care Team (Late st Contact Info) Description 05/20/[address] [facility] Oncology [address] [facility] 7th [place] [address] [place] [address] Eren Cr MD [address] [facility] [address] [place] [address] COVID19 exposure Social History Tobacco Use Types Packs/Day Years Used Date Smoking Tobacco: Never Smokeless Tobacco: Never Alcohol Use Standard Drinks/Week Comments Yes 1 (1 standard drink = 0.6 oz pur e alcohol) Comments No Sex and Gender Information Value Date Recorded Sex Assigned at Not on file Legal Sex Female 2:41 PM STUNT DOUBLE Gender Identity Not on file Sexual Orientation Straight 02/19/2021 9: 29 AM CDT Occupation Industry Job Start Date Job End Date retired Not on file Not on file Not on file documented as of this encounter Miscellaneous Notes * Telephone Encounter - Sola Heredia - 05/20/2020 12:23 PM CST Spoke with patient to follow up her portal communication regarding covid19 exposure. Patient was with friends last week who have since had positive covid 19 tests. Patient has no symptoms as of today, she had Covid testing done today and should have results prior to Saturday. If positive test, will cancel Saturday lab. Will follow up with patient on Saturday for test results. T DOUBLE documented in this encounter Plan of Treatment Not on file documented as of this encounter Visit Diagnoses Not on filedocumented in this encounter Care Teams Direct Support Professional Relationship Specialty Start Date End Date Julio César Briseno MD PCP - General 10/01/16 Eren Cr MD Referring Physician Medical Oncology 11/25/18 Yohana Bowen MD Radiation Oncologist Radiation Oncology 11/25/18 documented as of this encounter
--- OUTSIDE RECORDS SUMMARY | 2024-06-25 22:32 | XMS_ITS | Encounter Summary ---
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) Procedures [place] OCTREOTIDE INJECTION, DEPOT Octreotide 28 Day Cycles - Carcinoid Eren Cr MD [address] [facility] [address] [place] [address] Phone: tel: fax: [facility] [address] [address] Phone: tel: fax: Referral ID Status Reason Start Date Expiration Date V isits Requested Visits Authorized [id number] Authorized 11/28/2017 02/05/2025 1 150 Encounter Details Date Type Department Care Team (Late st Contact Info) Description 02/15/2020 3:30 PM CDT Infusion [facility] Oncology [address] [place] [address] [place] [address] Neuroendocrine carcinoma (CMS/HCC) (Primary Dx); Malignant neoplasm metastatic to liver (CMS/HCC) Social History Tobacco Use Types Packs/Day Years Used Date Smoking Tobacco: Never Smokeless Tobacco: Never Alcohol Use Standard Drinks/Week Comments Yes 1 (1 standard drink = 0.6 oz pur e alcohol) Comments No Sex and Gender Information Value Date Recorded Sex Assigned at Not on file Legal Sex Female 2:41 PM MOBILE ENGINEER Gender Identity Not on file Sexual Orientation Straight 02/19/2021 9: 29 AM CDT Occupation Industry Job Start Date Job End Date retired Not on file Not on file Not on file documented as of this encounter Nursing Notes * Brii Saenz RN - 02/15/2020 3:30 PM CDT Pt tolerated sandostatin well. Pt has schedule. Ambulatory at discharge. documented in this encounter Plan of Treatment [...] 30 mg 30 mg, intramuscular, Once, On 02/15/20 at 1615, For 1 dose, Refrigerate. For IM intragluteal administration only- alternate gluteal sites. 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),Neuroendocrine carcinoma (HCC) Given 02/15/2020 4:06 PM CDT 30 mg Left Dorsogluteal/Butt ock documented in this encounter Orders Medications Ordered That Brett ht Not Have Been Administered Count Last Ordered Date First Ordered Date octreotide LAR (SandoSTATIN LAR) extended release intramuscular injection 30 mg 1 02/15/2020 Appointment Requests Count Last Ordered Date Fi rst Ordered Date ONCBCN INJECTION APPOINTMENT REQUEST 1 02/05 documented in this encounter Care Teams Food Service Driver Relationship Specialty Start Date End Date Julio César Briseno MD PCP - General 10/01/16 Eren Cr MD Referring Physician Medical Oncology 11/25/18 Yohana Bowen MD Radiation Oncologist Radiation Oncology 11/25/18 documented as of this encounter
--- OUTSIDE RECORDS SUMMARY | 2024-06-25 22:32 | XMS_ITS | Encounter Summary ---
Author Organization [facility] Address [address] [place] [address] Care Team Providers Care Product Architect Name Role Phone Julio César Briseno MD Primary Care Provider [phone] Eren Cr MD Unavailable [phone] Yohana Bowen MD Unavailable Sabrina Willard NP Unavailable [phone] Alejo Mi MD Unavailable [phone] Encounter Details Date Type Department Care Team (Late st Contact Info) Description 01/20/2020 Telephone [facility] ([facility]) [address] [place] [address] Gretchen Ceja, RT Social History Tobacco Use Types Packs/Day Years Used Date Smoking Tobacco: Never Smokeless Tobacco: Never Alcohol Use Standard Drinks/Week Comments Yes 1 (1 standard drink = 0.6 oz pur e alcohol) Comments No Sex and Gender Information Value Date Recorded Sex Assigned at Not on file Legal Sex Female 2:41 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 Gender Identity Not on file Sexual [...] COVID: Suspected 09/04/2021 09/04/2021 09/04/2021 4:06 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 COVID: Suspected 01/10/2022 01/10/2022 01/10/2022 5:55 PM CDT COVID: Suspected 06/13/2024 06/13/2024 06/13/2024 6:39 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 documented as of this encounter Care Teams Product Architect Relationship Specialty Start Date End Date Julio César Briseno MD PCP - General 10/01/16 Eren Cr MD Referring Physician Medical Oncology 11/25/18 Yohana Bowen MD Radiation Oncologist Radiation Oncology 11/25/18 Sabrina Willard NP [address] [place], [place] [id number] Nurse Practitioner Medical Oncology 08/17/20 11/26/21 Alejo Mi MD [address] [place] [address] Referring Physician Nephrology 03/07/23 documented as of this encounter
--- OUTSIDE RECORDS SUMMARY | 2024-06-25 22:32 | XMS_ITS | Encounter Summary ---
Author Organization [facility] Address [address] [place] [address] Phone Care Team Providers Care Oriental Rug Repairer Name Role Phone Julio César Briseno MD Primary Care Provider Eren Cr MD Unavailable [phone] Yohana Bowen MD Unavailable Encounter Details Date Type Department Care Team (Late st Contact Info) Description 03/16/2020 Orders Only [facility] Oncology [address] [place] [address] Eren Cr MD [address] [place], [place] [id number] 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); Neuroendocrine carcinoma (CMS/HCC) Social History Tobacco Use Types Packs/Day Years Used Date Smoking Tobacco: Never Smokeless Tobacco: Never Alcohol Use Standard Drinks/Week Comments Yes 1 (1 standard drink = 0.6 oz pur e alcohol) Comments No Sex and Gender Information Value Date Recorded Sex Assigned at Not on file 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 Gender Identity Not on file Sexual Orientation Straight 02/19/2021 9: 29 AM CDT Occupation Industry Job Start Date Job End Date retired Not on file Not on file Not on file documented as of this encounter Plan of Treatment Not on file documented as of this encounter Results * (ABNORMAL) Calcium, ionized (04/11/2020 3:49 PM CDT) Calcium, Ionized 5.86(H) 4.50 - 5.10 mg/dL JASON BLACK Blood specimen (specimen) 04/11/2020 3:49 PM CDT 04/11/2020 4:41 PM CDT us Eren Cr MD LAB BLOOD ORDERABLES Final Re sult [facility] Department [place] [address] documented in this encounter Visit Diagnoses Diagnosis Malignant neoplasm metastatic to liver (HCC)- Primary Neuroendocrine carcinoma (HCC) Other malignant neoplasm of unspecified site documented in this encounter Care Teams Oriental Rug Repairer Relationship Specialty Start Date End Date Julio César Briseno MD PCP - General 10/01/16 Eren Cr MD Referring Physician Medical Oncology 11/25/18 Yohana Bowen MD Radiation Oncologist Radiation Oncology 11/25/18 documented as of this encounter
--- OUTSIDE RECORDS SUMMARY | 2024-06-25 22:32 | XMS_ITS | Encounter Summary ---
Author Organization [facility] Address [address] [place] [address] Phone Care Team Providers Care Hay Rake Operator Name Role Phone Julio César Briseno MD Primary Care Provider [phone] Eren Cr MD Unavailable Yohana Bowen MD Unavailable Reason for Visit * Episode Based Medications (Routine) - Authorized Specialty Diagnoses / Procedures Referred By Evelyne t Referred To Contact Oncology Diagnoses Neuroendocrine carcinoma (HCC) Malignant neoplasm metastatic to liver (HCC) Procedures [place] OCTREOTIDE INJECTION, DEPOT Octreotide 28 Day Cycles - Carcinoid Eren Cr MD [address] [place] [address] Phone: tel: fax: [facility] [address] [address] Phone: tel: fax: Referral ID Status Reason Start Date Expiration Date V isits Requested Visits Authorized [id number] Authorized 11/28/2017 02/05/2025 1 150 Encounter Details Date Type Department Care Team (Late st Contact Info) Description 02/15/2020 1:45 PM CDT Lab [facility] Oncology Replaced by [facility] [address] [place] [address] [place] [address] Neuroendocrine carcinoma (CMS/HCC); Malignant neoplasm metastatic to liver (CMS/HCC) Social History Tobacco Use Types Packs/Day Years Used Date Smoking Tobacco: Never Smokeless Tobacco: Never Alcohol Use Standard Drinks/Week Comments Yes 1 (1 standard drink = 0.6 oz pur e alcohol) Comments No Sex and Gender Information Value Date Recorded Sex Assigned at Not on file Legal Sex Female 2:41 PM JAW SKINNER Gender Identity Not on file Sexual Orientation Straight 02/19/2021 9: 29 AM CDT Occupation Industry Job Start Date Job End Date retired Not on file Not on file Not on file documented as of this encounter Plan of Treatment Not on file documented as of this encounter Procedures Procedure Name Priority Date/Time Associated Diagnosis Comments PHOSPHORUS STAT 12/06/2020 3:09 PM CDT PHOSPHORUS STAT 10/10/2020 4:02 PM CDT PHOSPHORUS Routine 05/09/2020 2:30 PM JAW SKINNER DIFFERENTIAL AUTO Routine 02/15/2020 2:0 5 PM CDT Neuroendocrine carcinoma (CMS/HCC) Malignant neoplasm metastatic to liver (CMS/HCC) CBC WITH AUTO DIFFERENTIAL Routine 02/15/2020 2:05 PM CDT Neuroendocrine carcinoma (CMS/HCC) Malignant neoplasm metastatic to liver (CMS/HCC) COMPREHENSIVE METABOLIC PANEL Routine 02/15/2020 2:05 PM CDT Neuroendocrine carcinoma (CMS/HCC) Malignant neoplasm metastatic to liver (CMS/HCC) CHROMOGRANIN A Routine 02/15/2020 12:05 PM CDT Neuroendocrine carcinoma (CMS/HCC) Malignant neoplasm metastatic to liver (CMS/HCC) documented in this encounter Results * Phosphorus (12/06/2020 3:09 PM CDT) Phosphorus, pl 2.3 2.3 - 4.5 mg/dL JASON BLACK Comment:Testing performed by : [facility], [address] [place] [phone] Blood specimen (specimen) 12/06/2020 3:09 PM CDT 12/06/2020 3:10 PM CDT Eren Cr MD LAB BLOOD ORDERABLES Final Re sult [facility] [place], [place] [id number] * Phosphorus (10/10/2020 4:02 PM CDT) Phosphorus, pl 2.6 2.3 - 4.5 mg/dL [facility] Comment:Testing performed by : [facility], [address] [place] [phone] Blood specimen (specimen) 10/10/2020 4:02 PM CDT 10/10/2020 4:51 PM CDT Eren Cr MD LAB BLOOD ORDERABLES Final Re sult Performing Organization Address City/[facility]/ZIP Co de Phone Number [place], [place] [phone] * Phosphorus (05/09/2020 2:30 PM JAW SKINNER) Phosphorus, pl 2.5 2.3 - 4.5 mg/dL [facility] Blood specimen (specimen) 05/09/2020 2:30 PM JAW SKINNER 05/09/2020 5:01 PM JAW SKINNER Eren Cr MD LAB BLOOD ORDERABLES Final Re sult Performing Organization Address City/[facility]/ZIP Co de Phone Number [place], [place] [phone] * (ABNORMAL) Differential, auto (02/15/2020 2:05 PM CDT) Neutrophil abs 3.2 1.8 - 6.6 K/cumm [facility] Comment:Testing performed by : [facility], [address] [place] [phone] Lymphocyte abs 0.3(L) 1.2 - 3.3 K/cumm [facility] Comment:Testing performed by : [facility], [address] [place] [phone] Monocyte abs 0.5 0.2 - 1.2 K/cumm [facility] Comment:Testing performed by : [facility], [address] [place] [phone] Eosinophil abs 0.0 0.0 - 0.5 K/cumm [facility] Comment:Testing performed by : [facility], [address] [place] [phone] Basophil abs 0.0 0.0 - 0.2 K/cumm [facility] Comment:Testing performed by : [facility], [address] [place] [phone] Neutrophil pct 78.6 % [facility] Comment: Interpretive Data Percent cell count reference ranges are not reported, since discordance with absolute values may lead to misinterpretation of CBC data. Current Interpretive Data was last revised on 2017. Testing performed by: [facility], [address] [place] [phone] Lymphocyte pct 7.2 % [facility] Comment: Interpretive Data Percent cell count reference ranges are not reported, since discordance with absolute values may lead to misinterpretation of CBC data. Current Interpretive Data was last revised on 2017. Testing performed by: [facility], [address] [place] [phone] Monocyte pct 12.6 % [facility] Comment:Testing performed by : [facility], [address] [place] [phone] Eosinophil pct 1.2 % [facility] Comment:Testing performed by : [facility], [address] [place] [phone] Basophil pct 0.4 % [facility] Comment:Testing performed by : [facility], [address] [place] [phone] Blood specimen (specimen) 02/15/2020 2:05 PM CDT 02/15/2020 2:11 PM CDT us Sabrina Willard NP LAB BLOOD ORDERABLES Final R esult JASON BLACK [facility] Department [place] [address] * (ABNORMAL) CBC with auto differential (02/15/2020 2:05 PM CDT) WBC 4.0 3.8 - 9.8 K/cumm JASON BLACK Comment:Testing performed by : [facility], [address] [place] [phone] Hgb 12.1 12.1 - 15.1 g/dL [facility]ON BLACK Comment:Testing performed by : [address] [address] Hct 35.2(L) 36.1 - 44.3 % JASON BLACK Comment:Testing performed by : [facility], [address] [place] [phone] Plt 117(L) 140 - 440 K/cumm JASON BLACK Comment:Testing performed by : [address] [address] MPV 7.3 6.8 - 10.4 fL JASON BLACK Comment:Testing performed by : [address] [phone] RBC 3.75(L) 3.90 - 5.00 M/cumm JASON BLACK Comment:Testing performed by : [facility], [address] [place] [phone] MCV 93.9 80.0 - 97.6 fL [facility] Comment:Testing performed by : [address] [address] MCH 32.3 26.7 - 33.7 pg [facility] Comment:Testing performed by : [address] [address] MCHC 34.4 32.7 - 35.5 g/dL JASON BLACK Comment:Testing performed by : [facility], [address] [place] [phone] RDW CV 12.8 11.8 - 14.6 % JASON BLACK Comment:Testing performed by : [facility], [address] [place] [phone] NRBC abs 0.00 0.00 - 0.01 K/cumm JASON BLACK Comment:Testing performed by : [facility], [address] [place] [phone] Blood specimen (specimen) 02/15/2020 2:05 PM CDT 02/15/2020 2:11 PM CDT Sabrina Willard NP LAB BLOOD ORDERABLES Final R esult JASON BLACK [facility] Department [place] [address] * (ABNORMAL) Comprehensive metabolic panel (02/15/2020 2:05 PM CDT) Sodium 141 135 - 145 mmol/L JASON BLACK Comment:Testing performed by : [facility], [address] [place] [phone] Potassium, pl 4.0 3.3 - 4.9 mmol/L JASON BLACK Comment:Testing performed by : [facility], [address] [place] [phone] Chloride 105 97 - 110 mmol/L JASON BLACK Comment:Testing performed by : [facility], [address] [place] [phone] CO2 29 22 - 32 mmol/L JASON BLACK Comment:Testing performed by : [facility], [address] [place] [phone] Anion gap 7 2 - 15 mmol/L JASON BLACK Comment:Testing performed by : [facility], [address] [place] [phone] BUN 12 8 - 25 mg/dL JASON BLACK Comment:Testing performed by : [facility], [address] [place] [phone] Creatinine 0.85 0.60 - 1.10 mg/dL JASON LEAVITT Comment:Testing performed by : [facility], [address] [place] [phone] Glucose 123 70 - 199 mg/dL [facility] Comment: [...] was last revised 2017. Testing performed by: [address] Calcium 10.9(H) 8.5 - 10.3 mg/dL [facility] Comment:Testing performed by : [place] [phone] Bilirubin, total 0.4 0.1 - 1.2 mg/dL [facility] Comment:Testing performed by : [address] [phone] Protein, pl 6.6 6.5 - 8.5 g/dL [facility] Comment:Testing performed by : [place] [id number] Albumin 4.4 3.5 - 5.0 g/dL [facility] Comment:Testing performed by : [address] [address] Alk phos 87 40 - 130 Units/L [facility] Comment:Testing performed by : [place] [id number] ALT 13 7 - 45 Units/L [facility] Comment:Testing performed by : [place] [id number] AST 19 10 - 45 Units/L [facility] Comment:Testing performed by : [address] [phone] Blood specimen (specimen) 02/15/2020 2:05 PM CDT 02/15/2020 2:11 PM CDT Sabrina Willard NP LAB BLOOD ORDERABLES Final R esult Performing Organization Address [facility] de Phone Number JASON BLACK [facility] [place] [address] * (ABNORMAL) Chromogranin A (02/15/2020 12:05 PM CDT) Chromogranin A 249(H) <93 ng/mL [facility] Comment: Impaired renal or [...] of malignant disease. Test Performed by: [facility] [place] [address] Jewelry Technician: Immanuel Novak M.D. Ph.D.; CLIA# [id number] Blood specimen (specimen) 02/15/2020 12:05 PM CDT 02/15/2020 2:22 PM CDT Sabrina Willard NP LAB BLOOD ORDERABLES Final R esult Performing Organization Address City/[facility]/ZIP Co de Phone Number JASON BLACK [facility] [place] [address] documented in this encounter Visit Diagnoses Diagnosis Neuroendocrine carcinoma (HCC) Other malignant neoplasm of unspecified site Malignant neoplasm metastatic to liver (HCC) documented in this encounter Orders Appointment Requests Count Last Ordered Date Fi rst Ordered Date ONCBCN LAB APPOINTMENT 1 02/15/2020 documented in this encounter Care Teams Hay Rake Operator Relationship Specialty Start Date End Date Julio César Briseno MD PCP - General 10/01/16 Eren Cr MD Referring Physician Medical Oncology 11/25/18 Yohana Bowen MD Radiation Oncologist Radiation Oncology 11/25/18 documented as of this encounter
--- OUTSIDE RECORDS SUMMARY | 2024-06-25 22:32 | XMS_ITS | Encounter Summary ---
Author Organization [facility] Healthcare Address [address] [place] [address] Care Team Providers Care Pest Management Supervisor Name Role Phone Julio César Briseno MD Primary Care Provider Eren Cr MD Unavailable [phone] Yohana Bowen MD Unavailable Encounter Details Date Type Department Care Team (Late st Contact Info) Description 11/11/[address] 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 documented in this encounter Plan of Treatment Not on file documented as of this encounter Visit Diagnoses Not on filedocumented in this encounter Care Teams Pest Management Supervisor Relationship Specialty Start Date End Date Julio César Briseno MD PCP - General 10/01/16 Eren Cr MD Referring Physician Medical Oncology 11/25/18 Yohana Bowen MD Radiation Oncologist Radiation Oncology 11/25/18 documented as of this encounter
--- OUTSIDE RECORDS SUMMARY | 2024-06-25 22:32 | XMS_ITS | Encounter Summary ---
Author Organization [facility] Address [address] [place] [address] Phone Care Team Providers Care Chief Revenue Officer Name Role Phone Julio César Briseno MD Primary Care Provider [phone] Eren Cr MD Unavailable [phone] Yohana Bowen MD Unavailable Reason for Visit * Reason Comments Injections * Episode Based Medications (Routine) - Authorized Specialty Diagnoses / Procedures Referred By Contellen t Referred To Contact Oncology Diagnoses Neuroendocrine carcinoma (HCC) Malignant neoplasm metastatic to liver (HCC) Procedures [place] OCTREOTIDE INJECTION, DEPOT Octreotide 28 Day Cycles - Carcinoid Eren Cr MD [address] [address] [place] [address] Phone: tel: fax: [address] [address] Phone: tel: fax: Referral ID Status Reason Start Date Expiration Date V isits Requested Visits Authorized [id number] Authorized 11/28/2017 02/05/2025 1 150 Encounter Details Date Type Department Care Team (Late st Contact Info) Description 10/27/2019 11:45 AM CDT Infusion [facility] Oncology [address] [place] [address] for Advanced Medicine 7th [place] [address] Neuroendocrine carcinoma (CMS/HCC) (Primary Dx); Malignant neoplasm metastatic to liver (CMS/HCC) Social History Tobacco Use Types Packs/Day Years Used Date Smoking Tobacco: Never Smokeless Tobacco: Never Alcohol Use Standard Drinks/Week Comments Yes 1 (1 standard drink = 0.6 oz pur e alcohol) Comments No Sex and Gender Information Value Date Recorded Sex Assigned at Not on file Legal Sex Female 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 No / Unsure 09/30/2019 2:02 PM CDT documented as of this encounter Last Filed Vital Signs Vital Sign Reading Time Taken Comments Blood Pressure 141/79 10/27/2019 12:02 PM CDT Pulse 72 10/27/2019 12:02 PM CDT Temperature 36.4 ??C (97.5 ??F) 10/27/2019 12:02 PM C DT Respiratory Rate 18 10/27/2019 12:02 PM CDT Oxygen Saturation 98% 10/27/2019 12:02 PM CDT Inhaled Oxygen Concentration - - Weight 80.5 kg (177 lb 6.4 oz) 10/27/2019 12:02 PM CDT Height - - Body Mass Index 31.42 07/29/2019 6:18 AM PUBLIC RECORDS RESEARCHER documented in this encounter Nursing Notes * Dionna Singh, [place] - 10/27/2019 11:45 AM CDT Pt arrived for octreotide injection. Pt refuses injection to be given in ventrogluteal. Requests dorsogluteal instead. States she was sore for several days after last injection which she states was given in ventrogluteal. Injection given per pt request without issues. Pt left ambulatory in stable condition without further needs. documented in this encounter Plan of Treatment [...] 30 mg 30 mg, intramuscular, Once, On 10/27/19 at 1215, For 1 dose, Refrigerate. For IM administration only. 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),Neuroendocrine carcinoma (HCC) Given 10/27/2019 12:12 PM CDT 30 mg Right Dorsogluteal/Butt ock documented in this encounter Orders Medications Ordered That Brett ht Not Have Been Administered Count Last Ordered Date First Ordered Date octreotide LAR (SandoSTATIN LAR) extended release intramuscular injection 30 mg 1 10/27/2019 Appointment Requests Count Last Ordered Date Fi rst Ordered Date ONCBCN INJECTION APPOINTMENT REQUEST 1 10/07 documented in this encounter Care Teams Chief Revenue Officer Relationship Specialty Start Date End Date Julio César Briseno MD PCP - General 10/01/16 Eren Cr MD Referring Physician Medical Oncology 11/25/18 Yohana Bowen MD Radiation Oncologist Radiation Oncology 11/25/18 documented as of this encounter
--- OUTSIDE RECORDS SUMMARY | 2024-06-25 22:32 | XMS_ITS | Encounter Summary ---
Author Organization [facility] Address [address] [place] [address] Phone Care Team Providers Care Cost Control Analyst Name Role Phone Julio César Briseno MD Primary Care Provider [phone] Eren Cr MD Unavailable [phone] Yohana Bowen MD Unavailable Reason for Visit * Episode Based Medications (Routine) - Authorized Specialty Diagnoses / Procedures Referred By Evelyne t Referred To Contact Oncology Diagnoses Neuroendocrine carcinoma (HCC) Malignant neoplasm metastatic to liver (HCC) Procedures [place] OCTREOTIDE INJECTION, DEPOT Octreotide 28 Day Cycles - Carcinoid Eren Cr MD [address] [facility] [address] [place] [address] Phone: tel: fax: [facility] [address] [address] Phone: tel: fax: Referral ID Status Reason Start Date Expiration Date V isits Requested Visits Authorized [id number] Authorized 11/28/2017 02/05/2025 1 150 Encounter Details Date Type Department Care Team (Late st Contact Info) Description 04/11/2020 4:00 PM CDT Infusion [facility] Oncology [address] [place] [address] [place] [address] Neuroendocrine carcinoma (CMS/HCC) (Primary Dx); Malignant neoplasm metastatic to liver (CMS/HCC) Social History Tobacco Use Types Packs/Day Years Used Date Smoking Tobacco: Never Smokeless Tobacco: Never Alcohol Use Standard Drinks/Week Comments Yes 1 (1 standard drink = 0.6 oz pur e alcohol) Comments No Sex and Gender Information Value Date Recorded Sex Assigned at Not on file 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 Future appointments scheduled. Ambulatory at discharge. documented in this encounter [...] 30 mg 30 mg, intramuscular, Once, On 04/11/20 at 1645, For 1 dose, Refrigerate. For IM intragluteal administration only- alternate gluteal sites. 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),Neuroendocrine carcinoma (HCC) Given 04/11/2020 4:21 PM CDT 30 mg Left Dorsogluteal/Butt ock documented in this encounter Orders Medications Ordered That Brett ht Not Have Been Administered Count Last Ordered Date First Ordered Date octreotide LAR (SandoSTATIN LAR) extended release intramuscular injection 30 mg 1 04/11/2020 Appointment Requests Count Last Ordered Date Fi rst Ordered Date ONCBCN INJECTION APPOINTMENT REQUEST 1 11/2019 documented in this encounter Care Teams Cost Control Analyst Relationship Specialty Start Date End Date Julio César Briseno MD PCP - General 10/01/16 Eren Cr MD Referring Physician Medical Oncology 11/25/18 Yohana Bowen MD Radiation Oncologist Radiation Oncology 11/25/18 documented as of this encounter
--- OUTSIDE RECORDS SUMMARY | 2024-06-25 22:32 | XMS_ITS | Encounter Summary ---
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) Procedures CT Chest Abdomen Pelvis W Contrast Yohana Bowen MD [address] [facility] [address] [place] [address] Phone: tel: fax: [address] [address] Referral ID Status Reason Start Date Expiration Date Visits Re quested Visits Authorized [id number] Closed 07/27/2019 02/04/2021 1 1 Reason for Visit * Diagnostic Imaging (Routine) - Closed Specialty Diagnoses / Procedures Referred By Evelyne bowman Referred To Contact Radiology Diagnoses Malignant neoplasm metastatic to liver (HCC) Procedures CT Chest Abdomen Pelvis W Contrast Yohana Bowen MD [address] [facility] [address] [place] [address] Phone: tel: fax: [facility] [address] [place] [address] Referral ID Status Reason Start Date Expiration Date Visits Re quested Visits Authorized [id number] Closed 07/27/2019 02/04/2021 1 1 Encounter Details Date Type Department Care Team (Latest Contact Info) Description 10/27/2019 9:38 AM CDT - 10/27/2019 11:59 PM CDT Hospital Encounter [facility] [address] [place] [address] Yohana Bowen MD [address] [facility] [address] [place] [address] Malignant neoplasm metastatic to liver (CMS/HCC) Discharge [...] on file 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 20 each 6 09/21/2019 simvastatin (ZOCOR) 20 mg tablet Take 1 tablet (20 mg total) by mouth nightly ascorbic acid, vitamin C, 500 mg capsuleIndications :supplement Take 1 tablet by mouth steam gigger before breakfast 07/04/2016 4 bisacodyl (DULCOLAX) 10 mg suppository Gentle Laxative (bisacodyl) 10 mg rectal suppository USE DIRECTED 0 cholecalciferol (VITAMIN D-3) 2,000 unit capsule Take 1 capsule (2,000 Units total) by mouth daily 30 capsule 2 04/25/2019 3 cholestyramine (QUESTRAN) 4 gram packet Take 1 packet by mouth 3 (three) times a day with meals 270 packet 3 09/04/2019 2 clotrimazole-betam ethasone (LOTRISONE) cream Apply 1 Application topically daily as needed (rash) 4 coenzyme [id number] 100-5 mg-unit capsuleIndications :supplement Take 1 tablet by mouth steam gigger before breakfast [address] (CYMBALTA) 30 mg capsule Take 1 capsule (30 mg total) by mouth daily 30 capsule 2 04/24/2019 4 fluticasone propionate (FLONASE) 50 mcg/actuation nasal sprayIndications:A llergic Rhinitis Administer 2 sprays into each nostril daily as needed for rhinitis or allergies 4 gabapentin (NEURONTIN) 300 mg capsule Take 1 capsule nightly for 7 days, then take 1 capsule twice daily for 7 days, then take 1 capsule three times daily thereafter 111 capsule 3 09/24/2019 0 hydrocortisone (PROCTOSOL HC) 2.5 % rectal cream Proctosol HC 2.5 % topical cream perineal applicator APPLY RECTALLY THREE TIMES A DAY 0 montelukast (SINGULAIR) 10 mg tablet Take [...] 4 (four) hours as needed for pain 10 tablet 04/24/[address] (PROTONIX) 40 mg EC tablet 05/12/2019 0 documented as of this encounter Discharge Disposition Disposition Code Departure Means Destination Discharge to home or self care documented in this encounter Plan of Treatment Not on file documented as of this encounter Procedures Procedure Name Priority Date/Time Associated Diagnosis Comments CT CHEST ABDOMEN PELVIS W CONTRAST Schedule Routine, Read Routine (OP Routine) 10/27/2019 10:21 AM CDT Malignant neoplasm metastatic to liver (CMS/HCC) documented in this encounter Results * CT Chest Abdomen Pelvis W Contrast (10/27/2019 10:21 AM CDT) Anatomical Region Laterality Modality Body N/A Computed Tomogra phy 10/27/2019 11:0 0 AM CDT Impressions 10/27/2019 11:00 AM CDT Multiple areas of metastatic disease with a nodule off the inferior aspect of the liver which is slightly smaller and a deposit anterior to the left psoas muscle which is bigger, however the majority of the disease burden is unchanged. Electronically signed by: Cindy Llanes M.D. Narrative 10/27/2019 11:[address] chest abdomen pelvis with IV contrast material TECHNIQUE: CT of the chest abdomen pelvis was performed after the intra-articular uneventful intravenous administration of 100 mL of Optiray 350. COMPARISON: CT dated 04/27/[address] dated 06/09/2019 CLINICAL HISTORY: Neuroendocrine carcinoma, restaging FINDINGS: CHEST: A 5 mm interfissural lymph node is seen at table position -231, this is unchanged in the prior study. ??There is also a pulmonary nodule measuring 1 cm in the right lower lobe at table position -267, this is also unchanged from the prior study. ??5 mm nodule is noted in the left lower lobe ??at table position -309 this is also unchanged. ??3 mm nodule is seen in the left lower lobe at table position -287, also unchanged. ??There is no new pulmonary nodule or mass noted. ??There is no evidence for pleural effusion or pneumothorax. ??No axillary mediastinal or hilar adenopathy is noted. Abdomen pelvis: There is a contour bulge on the inferior posterior aspect of the liver. ??This looks slightly smaller when compared to the prior study. On today's study this bulge measures 0.7 x 1.6 cm on the prior study this measured 1.0 x 1.7 cm. ??The portal vein, right and left branches are patent. ??The splenic vein is patent The spleen is unremarkable. The adrenals and left kidney are unremarkable right kidney demonstrates a simple cyst medially off the upper pole. ??The pancreas is normal in configuration. The uterus is surgically absent. ??There is a high attenuation mass in the right vaginal apex. ??This is unchanged when compared to the prior study and likely represents a metastatic focus. There is a horseshoe shaped high attenuation structure around the urethra options would include injection of urethral bulking agents such as Contigen another option would be stones within a bladder diverticulum these 2 could easily be discerned with questioning the patient. There is no evidence of bowel wall dilatation, bowel wall thickening or obstruction. ??There is a large diverticulum off the 4th portion of the duodenum essentially unchanged. ??There is a high attenuation focus in the wall of the sigmoid colon best seen at table position -563, this measures 1.1 cm and likely represents a metastatic focus. Just caudal to this, also in the sigmoid colon, at table position -575 is a 2nd metastatic deposit in the wall of the sigmoid colon which measures 0.9 cm, both of these are unchanged from the prior study. ??3rd metastatic deposit at table position -553 measures approximately 2.4 cm and is also unchanged. Multiple scattered pelvic nodules are seen scattered throughout the abdomen and pelvis, for instance, a small nodule just posterior to a calcification at table position -589 in the right hemipelvis, a mass anterior to the left psoas muscle at table position -499, this measures 1.2 cm and has increased in size, peritoneal nodule at table position -477 on the left. nodularity of the omentum at table position -403 has progressed I am uncertain if this represents fat necrosis or metastatic disease. There is been no significant change in the mildly enlarged precaval lymph node seen at table position -461. Procedure Note Cindy Llanes MD - 10/27/2019 CT chest abdomen pelvis with IV contrast material TECHNIQUE: CT of the chest abdomen pelvis was performed after the intra-articular uneventful intravenous administration of 100 mL of Optiray 350. COMPARISON: CT dated 04/27/[address] dated 06/09/2019 CLINICAL HISTORY: Neuroendocrine carcinoma, restaging FINDINGS: CHEST: A 5 mm interfissural lymph node is seen at table position -231, this is unchanged in the prior study. There is also a pulmonary nodule measuring 1 cm in the right lower lobe at table position -267, this is also unchanged from the prior study. 5 mm nodule is noted in the left lower lobe at table position -309 this is also unchanged. 3 mm nodule is seen in the left lower lobe at table position -287, also unchanged. There is no new pulmonary nodule or mass noted. There is no evidence for pleural effusion or pneumothorax. No axillary mediastinal or hilar adenopathy is noted. Abdomen pelvis: There is a contour bulge on the inferior posterior aspect of the liver. This looks slightly smaller when compared to the prior study. On today's study this bulge measures 0.7 x 1.6 cm on the prior study this measured 1.0 x 1.7 cm. The portal vein, right and left branches are patent. The splenic vein is patent The spleen is unremarkable. The adrenals and left kidney are unremarkable right kidney demonstrates a simple cyst medially off the upper pole. The pancreas is normal in configuration. The uterus is surgically absent. There is a high attenuation mass in the right vaginal apex. This is unchanged when compared to the prior study and likely represents a metastatic focus. There is a horseshoe shaped high attenuation structure around the urethra options would include injection of urethral bulking agents such as Contigen another option would be stones within a bladder diverticulum these 2 could easily be discerned with questioning the patient. There is no evidence of bowel wall dilatation, bowel wall thickening or obstruction. There is a large diverticulum off the 4th portion of the duodenum essentially unchanged. There is a high attenuation focus in the wall of the sigmoid colon best seen at table position -563, this measures 1.1 cm and likely represents a metastatic focus. Just caudal to this, also in the sigmoid colon, at table position -575 is a 2nd metastatic deposit in the wall of the sigmoid colon which measures 0.9 cm, both of these are unchanged from the prior study. 3rd metastatic deposit at table position -553 measures approximately 2.4 cm and is also unchanged. Multiple scattered pelvic nodules are seen scattered throughout the abdomen and pelvis, for instance, a small nodule just posterior to a calcification at table position -589 in the right hemipelvis, a mass anterior to the left psoas muscle at table position -499, this measures 1.2 cm and has increased in size, peritoneal nodule at table position -477 on the left. nodularity of the omentum at table position -403 has progressed I am uncertain if this represents fat necrosis or metastatic disease. There is been no significant change in the mildly enlarged precaval lymph node seen at table position -461. IMPRESSION: Multiple areas of metastatic disease with a nodule off the inferior aspect of the liver which is slightly smaller and a deposit anterior to the left psoas muscle which is bigger, however the majority of the disease burden is unchanged. Electronically signed by: Cindy Llanes M.D. Yohana Bowen MD IMG CT PROCEDURES Final Result documented in this encounter Visit Diagnoses Diagnosis Malignant neoplasm metastatic to liver (HCC) documented in this encounter Administered Medications Inactive Administered Medications - up to 3 most recent administrations Medication Order MAR Action Action Date Dose Rate Site ioversoL (OPTIRAY 350) syringe syringe 100 mL 100 mL, intravenous, Once in imaging, contrast, Starting on 10/27/19 at 1012, For 1 dose Given 10/27/2019 10:22 AM CDT 100 mL documented in this encounter Orders Medications Ordered That Brett ht Not Have Been Administered Count Last Ordered Date First Ordered Date ioversoL (OPTIRAY 350) syrin ge syringe 100 mL 1 10/27/2019 documented in this encounter Care Teams Bed Machine Operator Relationship Specialty Start Date End Date Julio César Briseno MD PCP - General 10/01/16 Eren Cr MD Referring Physician Medical Oncology 11/25/18 Yohana Bowen MD Radiation Oncologist Radiation Oncology 11/25/18 documented as of this encounter
--- OUTSIDE RECORDS SUMMARY | 2024-06-25 22:32 | XMS_ITS | Encounter Summary ---
Author Organization [facility] Address [address] [place] [address] Care Team Providers Care Principal Consultant Name Role Phone Julio César Briseno MD Primary Care Provider [phone] Eren Cr MD Unavailable [phone] Yohana Bowen MD Unavailable Encounter Details Date Type Department Care Team (Late st Contact Info) Description 12/18/2019 Telephone [facility] ([facility]) [address] [place] [address] Mica Vogel RT Social History Tobacco Use Types Packs/Day Years Used Date Smoking Tobacco: Never Smokeless Tobacco: Never Alcohol Use Standard Drinks/Week Comments Yes 1 (1 standard drink = 0.6 oz pur e alcohol) Comments No Sex and Gender Information Value Date Recorded Sex Assigned at Not on file 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 Reviewed appointment and COVID-19 information. documented in this encounter Plan of Treatment Not on file documented as of this encounter Visit Diagnoses Not on filedocumented in this encounter Care Teams Principal Consultant Relationship Specialty Start Date End Date Julio César Briseno MD PCP - General 10/01/16 Eren Cr MD Referring Physician Medical Oncology 11/25/18 Yohana Bowen MD Radiation Oncologist Radiation Oncology 11/25/18 documented as of this encounter
--- OUTSIDE RECORDS SUMMARY | 2024-06-25 22:32 | XMS_ITS | Encounter Summary ---
Author Organization [facility] Healthcare Address [address] [place] [address] Care Team Providers Care Support Services Tech Name Role Phone Julio César Briseno MD Primary Care Provider Eren Cr MD Unavailable [phone] Yohana Bowen MD Unavailable Reason for Referral * Diagnostic Imaging (Routine) - Closed Specialty Diagnoses / Procedures Referred By Evelyne bowman Referred To Contact Diagnoses Encounter for screening mammogram for malignant neoplasm of breast Procedures Screening Mammogram Bilateral W Khanh Screening Mammogram, Self [address] [address] Referral ID Status Reason Start Date Expiration Date Visits Re quested Visits Authorized [id number] Closed 12/15/2019 06/25/2021 1 1 Reason for Visit * Diagnostic Imaging (Routine) - Closed Specialty Diagnoses / Procedures Referred By Evelyne bowman Referred To Contact Diagnoses Encounter for screening mammogram for malignant neoplasm of breast Procedures Screening Mammogram Bilateral W Khanh Screening Mammogram, [address] [address] Referral ID Status Reason Start Date Expiration Date Visits Re quested Visits Authorized [id number] Closed 12/15/2019 06/25/2021 1 1 Encounter Details Date Type Department Care Team (Latest Contact Info) Description 12/21/2019 12:30 PM CDT - 12/21/2019 11:59 PM CDT Hospital Encounter [facility] [address] [place] [id number] Screening Mammogram, Self Encounter for screening mammogram for malignant neoplasm of breast Discharge Disposition: Discharge to home or self care Social History Tobacco Use Types Packs/Day Years Used Date Smoking Tobacco: Never Smokeless Tobacco: Never Alcohol Use Standard Drinks/Week Comments Yes 1 (1 standard drink = 0.6 oz pur e alcohol) Comments No Sex and Gender Information Value Date Recorded Sex Assigned at Not on file 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 Gender Identity Not on file Sexual Orientation [...] Take 1 tablet by mouth director of early childhood before breakfast 07/04/2016 4 bisacodyl (DULCOLAX) 10 [...] topically daily as needed (rash) 4 coenzyme T33-pygpogh E 100-5 mg-unit capsuleIndications :supplement Take 1 tablet by mouth director of early childhood before breakfast [address] (CYMBALTA) 30 [...] a day 90 tablet 11 11/16/2019 1 hydrocortisone (PROCTOSOL HC) 2.5 % rectal cream [...] Associated Diagnosis Comments SCREENING MAMMOGRAM BILATERAL W KHANH Schedule Routine, Read Routine (OP Routine) 12/21/2019 1:05 PM CDT Encounter for screening mammogram for malignant neoplasm of breast documented in this encounter Results * Screening Mammogram Bilateral W Khanh (12/21/2019 1:05 PM CDT) Anatomical Region Laterality Modality Breast Bilateral Mammography Narrative 12/23/2019 10:03 AM CDT Mammogram Technique: Bilateral Digital Breast Tomosynthesis, Bilateral C-view 2D Screening mammogram. ??Views obtained: ??bilateral craniocaudal and bilateral mediolateral oblique. ??Computer Aided Detection was performed. Mammogram Findings: The present examination has been compared to prior imaging studies performed at [facility] on 06/29/2015, 10/08/2016 and 01/27/2018. The breasts are heterogeneously dense, which may obscure small masses. There is no suspicious abnormality in either breast. Impression: Annual screening mammography is recommended. OVERALL FINAL ASSESSMENT: BI-RADS CATEGORY 1: ??Negative. Procedure Note Penelope Lawson MD - 12/23/2019 Mammogram Technique: Bilateral Digital Breast Tomosynthesis, Bilateral C-view 2D Screening mammogram. Views obtained: bilateral craniocaudal and bilateral mediolateral oblique. Computer Aided Detection was performed. Mammogram Findings: The present examination has been compared to prior imaging studies performed at [facility] on 06/29/2015, 10/08/2016 and 01/27/2018. The breasts are heterogeneously dense, which may obscure small masses. There is no suspicious abnormality in either breast. Impression: Annual screening mammography is recommended. OVERALL FINAL ASSESSMENT: BI-RADS CATEGORY 1: Negative. us Self Screening Mammogram IMG MAMMO PROCEDURES Fi nal Result documented in this encounter Visit Diagnoses Diagnosis Encounter for screening mammogram for malignant neoplasm of breast documented in this encounter Care Teams Support Services Tech Relationship Specialty Start Date End Date Julio César Briseno MD PCP - General 10/01/16 Eren Cr MD Referring Physician Medical Oncology 11/25/18 Yohana Bowen MD Radiation Oncologist Radiation Oncology 11/25/18 documented as of this encounter
--- OUTSIDE RECORDS SUMMARY | 2024-06-25 22:32 | XMS_ITS | Encounter Summary ---
Author Organization [facility] Healthcare Address [address] [place] [address] Care Team Providers Care Storage Center Manager Name Role Phone Julio César Briseno MD Primary Care Provider [phone] Eren Cr MD Unavailable [phone] Yohana Bowen MD Unavailable Reason for Visit * Reason Comments Follow-up Encounter Details Date Type Department Care Team (Late st Contact Info) Description 01/26/2020 9:30 AM CDT Telemedicine [facility] Advanced Medicine Radiation Oncology [address] [place] [address] Advanced Medicine [facility] [place] [address] Yohana Bowen MD [facility] [address] [place] [address] Neuro-endocrine carcinoma (CMS/HCC) Social History Tobacco Use Types Packs/Day Years Used Date Smoking Tobacco: Never Smokeless Tobacco: Never Alcohol Use Standard Drinks/Week Comments Yes 1 (1 standard drink = 0.6 oz pur e alcohol) Comments No Sex and Gender Information Value Date Recorded Sex Assigned at Not on file Legal Sex Female 2:41 PM 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 Gender Identity Not on file Sexual Orientation Straight 02/19/2021 9: 29 AM CDT Occupation Industry Job Start Date Job End Date retired Not on file Not on file Not on file documented as of this encounter Progress Notes * Charis Llanos MD - 01/26/2020 9:30 AM CDT Patient Name: La Chung Date of : 1950 Radiation Oncologist: Yohana Bowen MD Primary Care Physician: Julio César Briseno MD Medical Oncologist: Eren Cr Jr., MD Surgeon: Greyson Reeves MD Referring Physician: Patient Care Team: Eren Cr Jr., MD as Referring Physician (Medical Oncology) Date of Service: 01/26/2020 Radiation Oncology Follow-Up Note DIAGNOSIS: Cancer Staging [...] 08/05/2019) Total: Dose planned: 800 cGy Elapsed Course Treatment Days: 224 Reference Points Lutathera Most recent treatment: Dose given: 200 cGy (on 08/05/2019) Total: Dose given: 800 cGy Elapsed Course Treatment Days: 224 INTERVAL HISTORY: Ms. Chung was last seen via a telemedicine visit on 10/27/19. At that time she had persistent pain at her stoma site. This was being managed with gabapentin and had been evaluated by Dr. Reeves who sawno clear signs of disease at stoma site. She continued to have watery output from her stoma that she was taking cholestyramine for. Patient has her daughter and with her on the telemedicine visit. Today, Ms. Chung reports that she no longer has stomal site pain and hasn't had to take gabapentin for the last few days. Her daughter informs me that when the patient does have the pain, it is located on the skin around her stomal region and typically flares up when touched. When she does take the gabapentin, it improves the pain. She continues to have watery stoma output on occasion, but less frequently over the last fewweeks as she has taken the cholestyramine. Patient denies weight loss (she has actually has gained the COVID 10 pounds ), nausea, vomiting, flushing, headache. She has had a sense of lightheadedness on occasion but denies falling or loss of consciousness. She has been able to paint and do craftswithout difficulty. She had interval dotate PET/CT yesterday which revealed an increase in the size and intensity of uptake of the left humeral lesion, focal uptake in the right posterior C7, avid para-caval node, avid aortocaval node, and several new liver lesions in the anterior, superior left sabrina-liver. These findings are indicative of metastatic disease. Otherwise, there is a similar distribution of disease in the retroperitoneal lymph nodes and soft tissue deposits within the abdomen. ALLERGIES: Allergies as of 01/26/2020 - Reviewed 01/26/2020 Allergen Reaction Noted ??? Ezetimibe-simvastatin Muscle pain [...] mouth 3 (three) times a day with [id number] packet 3 ??? clotrimazole-betamethasone (LOTRISONE) cream clotrimazole-betamethasone 1 %- 0.05 % topical cream APPLY EXTERNALLY TO ABDOMEN TWICE DAILY NEEDED ??? coenzyme C43-gfigyjr E (CO Q-10, WITH VIT E,) 100-5 [...] ears, nose, mouth, throat, neurologic, cardiovascular, pulmonary, breast,GI, , skin, musculoskeletal, endocrine, hematologic/lymphatic, or immunologic systems. PERFORMANCE STATUS: KPS 90, Able to carry on normal activity; minor signs or symptoms of disease (ECOG equivalent 0). PHYSICAL EXAM: Telemedicine visit REPORTS REVIEWED: Imaging: Yohana Bowen MD and I reviewed the patient's most recent imaging studies. Pertinent findings are as per interval history. Laboratory/Pathology: Yohana Bowen MD and I reviewed the patient's most recent laboratory and pathology reports. Pertinent findings are as per interval history. IMPRESSION: La Chung is a 69 y.o. 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 She is s/p lutathera therapy (complete 4/4 fractions on 08/05/19) and continues on octreotide injections. Interval imaging shows progression of disease in distant metastatic sites (left humeral lesion, C7 lesion, and anterior superior left sabrina-liver lesions) and otherwise stable/decreased disease burden. The patient is aware that a mixed response is not uncommon for lutathera treatments. We will discuss her case in tumor board on February 08 and call her with the decision. In the interim, continue gabapentin for stoma site pain and cholestyramine for watery stomal outputas necessary. Continue octreotide injections with Dr. Cr. This was a telemedicine visit with La Chung, her and daughter which took place via Telephone.?? During the visit, Dr. Bowen and I were located in [facility] at [facility] in [place] and the patient was located at home in [place].??The session started at 8:50 AM and ended at 9:30 AM. The patient gave verbal consent for this telemedicine encounter. The patient has been informed that the visit may not be secure and acknowledged the information. I have explained the option of participating in a telephone or video visit during the COVID-19 public health emergency to the patient.?? After being given an opportunity to ask questions about and discuss this type of visit, the patient verbally consented to proceedi ng with the telephone / video visit.??The patient understands that this service replaces an office visit and they may be billed and/or responsible for any applicable copayments. OPINIONS AND RECOMMENDATIONS: Follow-up in [address] RAD ONC PAIN PLAN: The patient's pain is currently being managed by Medical Oncology . DISEASE STATUS: Disease Status: Failure: Distant New metachronous cancer?: No Charis Llanos MD PGY2 Resident Physician Department of Radiation Oncology Cosigned by Yohana Bowen MD at 01/26/2020 5:09 PM CDT Associated attestation - Yohana Bowen MD - 01/26/2020 5:09 PM CDT I have seen and examined the patient. I agree with the findings and plan of care as documented in the resident/fellow's note. This was a telemedicine visit with La Chung and and daughter which took place via Real-time video connection (InTouch, Zoom or similar). During the visit, I was located in the office andthe patient was located at home in the state [facility]. The patient visit started at 8:50 AM and ended at 9:30 AM. Total encounter time was 60 minutes, which includes time spent today on pre charting, the patient encounter, and post charting. The patient: has been informed that the visit may not be secure and acknowledged the information. The option of participating in a telephone or video visit during the [address] explained to them. After being given an opportunity to ask questions about and discuss this type of visit, they verbally consented to proceeding with the telephone/video visit and understand thatthis service replaces an office visit. Discuss imaging and further treatment in NET tumor board. Thank you for allowing us to participate in the care of this patient. Yohana Bowen MD Chief, GI Service Department of Radiation Oncology documented in this encounter Plan of Treatment Not on file documented as of this encounter Visit Diagnoses Diagnosis Neuro-endocrine carcinoma (HCC) Other malignant neoplasm of unspecified site documented in this encounter Care Teams Storage Center Manager Relationship Specialty Start Date End Date Julio César Briseno MD PCP - General 10/01/16 Eren Cr MD Referring Physician Medical Oncology 11/25/18 Yohana Bowen MD Radiation Oncologist Radiation Oncology 11/25/18 documented as of this encounter
--- OUTSIDE RECORDS SUMMARY | 2024-06-25 22:32 | XMS_ITS | Encounter Summary ---
Author Organization [facility] Address [address] [place] [address] Phone Care Team Providers Care Draw Machine Operator Name Role Phone Julio César Briseno MD Primary Care Provider Eren Cr MD Unavailable [phone] Yohana Bowen MD Unavailable Encounter Details Date Type Department Care Team (Late st Contact Info) Description 11/16/2019 Orders Only [facility] [address] [place] [address] [place] Social History Tobacco Use Types Packs/Day Years Used Date Smoking Tobacco: Never Smokeless Tobacco: Never Alcohol Use Standard Drinks/Week Comments Yes 1 (1 standard drink = 0.6 oz pur e alcohol) Comments No Sex and Gender Information Value Date Recorded Sex Assigned at Not on file Legal Sex Female 2:41 PM EVALUATOR Gender Identity Not on file Sexual Orientation [...] times a day 90 tablet 11 11/16/2019 09/01/2020 documented in this encounter Plan of Treatment Not on file documented as of this encounter Visit Diagnoses Not on filedocumented in this encounter Discontinued Medications Medication Sig Discontinue Reason Start Date End Da te gabapentin (NEURONTIN) 600 mg tablet Take 1 tablet (600 mg total) by mouth 3 (three) times a day Reorder 11/16/2019 11/16/2019 documented as of this encounter Care Teams Draw Machine Operator Relationship Specialty Start Date End Date Julio César Briseno MD PCP - General 10/01/16 Eren Cr MD Referring Physician Medical Oncology 11/25/18 Yohana Bowen MD Radiation Oncologist Radiation Oncology 11/25/18 documented as of this encounter
--- OUTSIDE RECORDS SUMMARY | 2024-06-25 22:32 | XMS_ITS | Encounter Summary ---
Author Organization [facility] Address [address] [place] [address] Phone Care Team Providers Care Yard Supervisor Cotton Gin Name Role Phone Julio César Briseno MD Primary Care Provider [phone] Eren Cr MD Unavailable [phone] Yohana Bowen MD Unavailable Reason for Referral * Diagnostic Imaging (Routine) - Closed Specialty Diagnoses / Procedures Referred By Evelyne bowman Referred To Contact Diagnoses Abnormal bone density screening Procedures Dexa Axial Skeleton Bone Density 1 or 2 Site Oksana Rivas NP Phone: tel: fax: [facility] (All Locations) Referral ID Status Reason Start Date Expiration Date Visits Re quested Visits Authorized [id number] Closed 01/13/2020 07/24/2021 1 1 Encounter Details Date Type Department Care Team (Late st Contact Info) Description 01/13/2020 3:00 PM CDT Office Visit [facility] Obstetrics and Gynecology [address] 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 Gender Identity Not on file Sexual Orientation Straight 02/19/2021 9: 29 AM CDT Occupation Industry Job Start Date Job End Date retired Not on file Not on file Not on file documented as of this encounter Last Filed Vital Signs Vital Sign Reading Time Taken Comments Blood Pressure 139/61 01/13/2020 3:04 PM CDT Pulse 62 01/13/2020 3:04 PM CDT Temperature 36.2 ??C (97.2 ??F) 01/13/2020 3:04 PM CD T Respiratory Rate 20 01/13/2020 3:04 PM CDT Oxygen Saturation 98% 01/13/2020 3:04 PM CDT Inhaled Oxygen Concentration - - Weight 83.1 kg (183 lb 4.8 oz) 01/13/2020 3:04 P M CDT Height 160 cm (5' 3 ) 01/13/2020 3:04 PM CDT Body Mass Index 32.47 01/13/2020 3:04 PM CDT documented in this encounter Progress Notes * Oksana Rivas NP - 01/13/2020 3:00 PM CDT Gynecological Oncology Follow-up Surveillance Patient: La Chung : 1950 Date of Exam: 01/13/2020 HPI: La Chung is a 69 y.o., female who had a mass in the ??right colon which was symptomatic. She had some discomfort. Dr Reeves removed the mass. 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 She has seen Dr. Dm Cr for this and has been treated with Octreotide and has what??looks like stable disease. ??She is here now just for routine gynecologic care and overall is doing well. Minor symptoms noted on her 24 point review which involve longstanding mild pain at the colostomy site-well managed with neurontin; urinary incontinence-ditropan effective; minor \hair loss. She has been diagnosed with metastatic well-differentiated NET of the ileum, grade 2, Ki-67 8.2%, with progression of metastatic disease on octreotide therapy s/p lutathera therapy. Patient continuesto have pain at the stoma site, now on gabapentin. This has been evaluated by Dr. Reeves as well with no clear signs of disease at the stoma site to explain this pain. Visit Diagnosis: 1. Neuro-endocrine carcinoma (CMS/HCC) 2. 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 CT abdomen and pelvis [...] also underwent right colectomy in [facility] [place] by Dr. Greyson Reeves. Biopsy [...] CT c/a/p in summary shows stable disease. 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) CA 125 ag (Units/ml) Date Value 10/03/2015 11.8 Review of Systems: Systemic: Pain: None, Fatigue: None Head: Headaches: None Eyes: Change in vision: None Otolaryngeal: Change in hearing: None Cardiovascular: Chest pain: None, Palpitation: None Pulmonary: Shortness of breath: None, Cough: None Gastrointestinal: Nausea: None, Vomiting: None, Abdominal bloating: None, Abdominal pain: None, Blood in bowel movements: None, Diarrhea: None, Constipation: None Genitourinary: Blood in urine: None, Lost control of urine: None, Pain with urination: None, Vaginal bleeding: None Endocrine: Hot flashes: None, Hair loss: None Hematologic: Easy bruising/bleeding: None Neurological: Tingling of hands or feet: None, Numbness: None Psychological: Depression: None, Mood changes: None Skin: Skin rash: None Past History: Patient Active Problem List Diagnosis Date Noted ??? Abdominal pain 01/13/2020 ??? Benign essential [...] > 5 YEARS N/A 08/04/2019 ? ? W[place] REMOVAL OF TONSILS,<12 Y/O Tonsillectomy - (Added by TW Conv) ??? [place] TOTAL ABDOM HYSTERECTOMY Hysterectomy - (Added by TW Conv) Allergies Allergen Reactions ??? Ezetimibe-Simvastatin Muscle pain [...] by mouth daily 30 capsule 2 ??? cholestyramine (QUESTRAN) 4 gram packet Take 1 packet by mouth 3 (three) times a day with [id number] packet 3 ??? clotrimazole-betamethasone (LOTRISONE) cream clotrimazole-betamethasone 1 %- 0.05 % topical cream APPLY EXTERNALLY TO ABDOMEN TWICE DAILY NEEDED ??? coenzyme [id number] E (CO Q-10, WITH VIT E,) 100-5 [...] mL intravenous Continuous Meagan Amaya MD Last Imagin10/27/19 CT IMPRESSION: ?? Multiple areas of metastatic disease with a nodule off the inferior aspect of the liver which is slightly smaller and a deposit anterior to the left psoas muscle which is bigger, however the majority of the disease burden is unchanged Recent Tumor Markers: Lab Results Component Value Date CA125 11.8 10/03/2015 Treatment Toxicity: Preventive screening: Health Maintenance Topic Date Due ??? Fall Risk Assessment 1950 ??? Depression Screening-PHQ 1950 ??? Regular Well Visit/Exam 1950 ??? Osteoporosis Screening-Bone Density Scan 1950 ??? Colon Cancer Screening-Colonoscopy 1950 ??? Hepatitis C Screening 1950 ??? DTaP/Tdap/Td Vaccine (1 - Tdap) 11/06/1959 ??? Influenza Vaccine (1) 03/08/2020 ??? Breast Cancer Screening-Mammogram 12/20/2020 ? ? Pneumococcal (PCV13 & PPSV23) 65+ yrs Completed ??? Zoster Vaccines Completed Bone Density Scan: Unknown to schedule a scan this year. Physical exam: There were no vitals taken [...] no distension and no mass. There is mild tenderness at the ostomy site. No hernia. Genitourinary: Vagina normal. No vaginal [...] Labs: Lab Results Component Value Date WBC 4.8 12/21/2019 HGB 12.7 12/21/2019 HCT 36.6 12/21/2019 NEUTROABS 3.6 12/21/2019 LABPLAT 114 (L) 12/21/2019 CALCIUM 10.9 (H) 12/21/2019 CO2 28 12/21/2019 ALBUMIN 4.6 12/21/2019 PROT 7.0 12/21/2019 ANIONGAP 7 12/21/2019 ALT 15 12/21/2019 AST 20 12/21/2019 MAGNESIUM 1.6 05/03/2019 SODIUM 140 12/21/2019 POTASSIUM 4.7 12/21/2019 CHLORIDE 105 12/21/2019 CREATININE 0.82 12/21/2019 BUNSER 16 12/21/2019 GLUCOSE 124 12/21/2019 INR 1.38 (H) 04/14/2019 BILITOT 0.5 12/21/2019 CA125 11.8 10/03/2015 Assessment/Plan: 1. We will see the patient back for follow up in one years time. ?? 2. She has stable disease and no evidence of progression. ?? 3. She will continue to follow up with Dr. Cr. ?? 4. She follows up with a urogynocologist close to home 5. Well women screening exams: she will follow up with a bone mineral density this year in our [facility]. Oksana Rivas NP 01/13/2020 3:04 PM CC: PCP: Julio César Briseno MD Enclosures:Note Cosigned by aJsbir Reeves MD at 01/14/2020 12:41 AM CDT documented in this encounter Plan of Treatment Not on file documented as of this encounter Results * Dexa Axial Skeleton Bone Density 1 or 2 Site (03/10/2020 9:58 AM CDT) Anatomical Region Laterality Modality Body N/A Radiographic Gabbie ging Narrative 03/12/2020 2:39 PM CDT Patient Name: La Chung Date of : 1950 Date of scan: 03/10/2020 Bone mineral density was performed on a [employer] Discovery Densitometer. ?? Machine Cross-calibration and Precision [...] by the International Society of Clinical Densitometry. 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) Colostomy status Abnormal bone density screening Osteopenia of left hip documented in this encounter Discontinued Medications Medication Sig Discontinue Reason Start Date End Da te bisacodyl (DULCOLAX) 10 mg suppository Gentle Laxative (bisacodyl) 10 mg rectal suppository USE DIRECTED Therapy completed 01/13/2020 hydrocortisone (PROCTOSOL HC) 2.5 % rectal cream Proctosol HC 2.5 % topical cream perineal applicator APPLY RECTALLY THREE TIMES A DAY Therapy completed 01/13/[address] (PROTONIX) 40 mg EC tablet Therapy completed 05/12/2019 01/13/2020 oxyCODONE (ROXICODONE) 5 mg immediate release tabletIndications:Pain Take 1 tablet (5 mg total) by mouth every 4 (four) hours as needed for pain Therapy completed 04/24/2019 01/13/2020 documented as of this encounter Care Teams Yard Supervisor Cotton Gin Relationship Specialty Start Date End Date Julio César Briseno MD PCP - General 10/01/16 Eren Cr MD Referring Physician Medical Oncology 11/25/18 Yohana Bowen MD Radiation Oncologist Radiation Oncology 11/25/18 documented as of this encounter
--- OUTSIDE RECORDS SUMMARY | 2024-06-25 22:32 | XMS_ITS | Encounter Summary ---
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) Procedures [place] OCTREOTIDE INJECTION, DEPOT Octreotide 28 Day Cycles - Carcinoid Eren Cr MD [address] [place] [address] Phone: tel: fax: [facility] Cancer [address] [address] Phone: tel: fax: Referral ID Status Reason Start Date Expiration Date V isits Requested Visits Authorized [id number] Authorized 11/28/2017 02/05/2025 1 150 Encounter Details Date Type Department Care Team (Late st Contact Info) Description 04/11/2020 3:30 PM CDT Lab [facility] Oncology [address] [place] [address] [place] [address] Neuroendocrine carcinoma (CMS/HCC); Malignant neoplasm metastatic to liver (CMS/HCC) Social History Tobacco Use Types Packs/Day Years Used Date Smoking Tobacco: Never Smokeless Tobacco: Never Alcohol Use Standard Drinks/Week Comments Yes 1 (1 standard drink = 0.6 oz pur e alcohol) Comments No Sex and Gender Information Value Date Recorded Sex Assigned at Not on file 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 Gender Identity Not on file Sexual Orientation Straight 02/19/2021 9: 29 AM CDT Occupation Industry Job Start Date Job End Date retired Not on file Not on file Not on file documented as of this encounter Plan of Treatment Not on file documented as of this encounter Procedures Procedure Name Priority Date/Time Associated Diagnosis Comments DIFFERENTIAL AUTO Routine 04/11/2020 3:4 9 PM CDT Neuroendocrine carcinoma (CMS/HCC) Malignant neoplasm metastatic to liver (CMS/HCC) CALCIUM, IONIZED Routine 04/11/2020 3:49 PM CDT Neuroendocrine carcinoma (CMS/HCC) Malignant neoplasm metastatic to liver (CMS/HCC) CBC WITH AUTO DIFFERENTIAL Routine 04/11/2020 3:49 PM CDT Neuroendocrine carcinoma (CMS/HCC) Malignant neoplasm metastatic to liver (CMS/HCC) COMPREHENSIVE METABOLIC PANEL Routine 04/11/2020 3:49 PM CDT Neuroendocrine carcinoma (CMS/HCC) Malignant neoplasm metastatic to liver (CMS/HCC) CHROMOGRANIN A Routine 04/11/2020 3:25 PM CDT Neuroendocrine carcinoma (CMS/HCC) Malignant neoplasm metastatic to liver (CMS/HCC) documented in this encounter Results * (ABNORMAL) Differential, auto (04/11/2020 3:49 PM CDT) Neutrophil abs 3.1 1.8 - 6.6 K/cumm [facility] Comment:Testing performed by : [facility], [address] [place] [phone] Lymphocyte abs 0.4(L) 1.2 - 3.3 K/cumm [facility] Comment:Testing performed by : [facility], [address] [place] [phone] Monocyte abs 0.5 0.2 - 1.2 K/cumm [facility] Comment:Testing performed by : [facility], [address] [place] [phone] Eosinophil abs 0.1 0.0 - 0.5 K/cumm [facility] Comment:Testing performed by : [facility], [address] [place] [phone] Basophil abs 0.0 0.0 - 0.2 K/cumm [facility] Comment:Testing performed by : [facility], [address] [place] [phone] Neutrophil pct 75.9 % [facility] Comment: Interpretive Data Percent cell count reference ranges are not reported, since discordance with absolute values may lead to misinterpretation of CBC data. Current Interpretive Data was last revised on 2017. Testing performed by: [facility], [address] [place] [phone] Lymphocyte pct 9.9 % [facility] Comment: Interpretive Data Percent cell count reference ranges are not reported, since discordance with absolute values may lead to misinterpretation of CBC data. Current Interpretive Data was last revised on 2017. Testing performed by: [facility], [address] [place] [phone] Monocyte pct 12.4 % [facility] Comment:Testing performed by : [facility], [address] [place] [phone] Eosinophil pct 1.3 % [facility] Comment:Testing performed by : [facility], [address] [place] [phone] Basophil pct 0.5 % [facility] Comment:Testing performed by : [facility], [address] [place] [phone] Blood specimen (specimen) 04/11/2020 3:49 PM CDT 04/11/2020 3:50 PM CDT Sabrina Willard SOLUTIONS OPERATOR LAB BLOOD ORDERABLES Final R esult [facility] Department [place] [address] * (ABNORMAL) Comprehensive metabolic panel (04/11/2020 3:49 PM CDT) Sodium 143 135 - 145 mmol/L [facility] Comment:Testing performed by : [facility], [address] [place] [phone] Potassium, pl 4.1 3.3 - 4.9 mmol/L [facility] Comment:Testing performed by : [facility], [address] [place] [phone] Chloride 107 97 - 110 mmol/L [facility] Comment:Testing performed by : [facility], [address] [place] [phone] CO2 29 22 - 32 mmol/L [facility] Comment:Testing performed by : [facility], [address] [place] [phone] Anion gap 7 2 - 15 mmol/L [facility] Comment:Testing performed by : [facility], [address] [place] [phone] BUN 12 8 - 25 mg/dL [facility] Comment:Testing performed by : [facility], [address] [place] [phone] Creatinine 0.79 0.60 - 1.10 mg/dL [facility] Comment:Testing performed by : [address] [phone] Glucose 131 70 - 199 mg/dL [facility] Comment: Interpretive Data Fasting glucose >/= [...] was last revised 2017. Testing performed by: [facility], [address] [place] [phone] Calcium 10.8(H) 8.5 - 10.3 mg/dL [facility] Comment:Testing performed by : [facility], [address] [place] [phone] Bilirubin, total 0.3 0.1 - 1.2 mg/dL [facility] Comment:Testing performed by : [facility], [address] [place] [phone] Protein, pl 6.9 6.5 - 8.5 g/dL [facility] Comment:Testing performed by : [facility], [address] [place] [phone] Albumin 4.5 3.5 - 5.0 g/dL [facility] Comment:Testing performed by : [facility], [address] [place], [place] [phone] Alk phos 90 40 - 130 Units/L [facility] Comment:Testing performed by : [facility], [address] [place] [phone] ALT 16 7 - 45 Units/L [facility] Comment:Testing performed by : [facility], [address] [place] [phone] AST 21 10 - 45 Units/L [facility] Comment:Testing performed by : [facility], [address] [place] [phone] Blood specimen (specimen) 04/11/2020 3:49 PM CDT 04/11/2020 3:50 PM CDT Sabrina Willard SOLUTIONS OPERATOR LAB BLOOD ORDERABLES Final R esult [facility] Department [place] [address] * (ABNORMAL) CBC with auto differential (04/11/2020 3:49 PM CDT) WBC 4.0 3.8 - 9.8 K/cumm [facility] Comment:Testing performed by : [facility], [address] [place] [phone] Hgb 12.7 12.1 - 15.1 g/dL [facility] Comment:Testing performed by : [facility], [address] [place], [place] [phone] Hct 37.0 36.1 - 44.3 % [facility] Comment:Testing performed by : [facility], [address] [place], [place] [phone] Plt 121(L) 140 - 440 K/cumm [facility] Comment:Testing performed by : [facility], [address] [place], [place] [phone] MPV 7.2 6.8 - 10.4 fL [facility] Comment:Testing performed by : [place] [address] RBC 3.98 3.90 - 5.00 M/cumm [facility] Comment:Testing performed by : [place] [address] MCV 93.0 80.0 - 97.6 fL [facility] Comment:Testing performed by : [facility], [address] [place], [place] [phone] MCH 31.9 26.7 - 33.7 pg [facility] Comment:Testing performed by : [place] [phone] MCHC 34.4 32.7 - 35.5 g/dL [facility] Comment:Testing performed by : [place] [phone] RDW CV 13.5 11.8 - 14.6 % [facility] Comment:Testing performed by : [facility], [address] [place], [place] [phone] NRBC abs 0.00 0.00 - 0.01 K/cumm [facility] Comment:Testing performed by : [place] [phone] Blood specimen (specimen) 04/11/2020 3:49 PM CDT 04/11/2020 3:50 PM CDT us Sabrina Willard SOLUTIONS OPERATOR LAB BLOOD ORDERABLES Final R esult Performing Organization Address [facility]/ZIP Co de Phone Number [facility] [place] [address] * (ABNORMAL) Calcium, ionized (04/11/2020 3:49 PM CDT) Calcium, Ionized 5.86(H) 4.50 - 5.10 mg/dL [facility] Blood specimen (specimen) 04/11/2020 3:49 PM CDT 04/11/2020 4:41 PM CDT Eren Cr MD LAB BLOOD ORDERABLES Final Re sult Performing Organization Address [facility] Co de Phone Number [facility] [place] [address] * (ABNORMAL) Chromogranin A (04/11/2020 3:25 PM CDT) Chromogranin A 250(H) <93 ng/mL [facility] Comment: Impaired renal or hepatic function [...] Test Performed by: [facility] [address] [place] [address] Php Developer: Immanuel Novak M.D. Ph.D.; CLIA# [id number] Blood specimen (specimen) 04/11/2020 3:25 PM CDT 04/11/2020 7:55 PM CDT Sabrina Willard SOLUTIONS OPERATOR LAB BLOOD ORDERABLES Final R esult [facility] Department [place] [address] documented in this encounter Visit Diagnoses Diagnosis Neuroendocrine carcinoma (HCC) Other malignant neoplasm of unspecified site Malignant neoplasm metastatic to liver (HCC) documented in this encounter Orders Appointment Requests Count Last Ordered Date Fi rst Ordered Date ONCBCN LAB APPOINTMENT 1 04/11/2020 documented in this encounter Care Teams Ship Self Defense System Mk1 Operator Relationship Specialty Start Date End Date Julio César Briseno MD PCP - General 10/01/16 Eren Cr MD Referring Physician Medical Oncology 11/25/18 Yohana Bowen MD Radiation Oncologist Radiation Oncology 11/25/18 documented as of this encounter
--- OUTSIDE RECORDS SUMMARY | 2024-06-25 22:32 | XMS_ITS | Encounter Summary ---
Author Organization [facility] Address [address] [place] [address] Phone Care Team Providers Care Sas Bi Developer Name Role Phone Julio César Briseno MD Primary Care Provider [phone] Eren Cr MD Unavailable [phone] Yohana Bowen MD Unavailable Reason for Referral * Diagnostic Imaging (Routine) - Closed Specialty Diagnoses / Procedures Referred By Evelyne bowman Referred To Contact Diagnoses Neuroendocrine carcinoma (HCC) Bone metastasis Procedures XR Humerus Left 2 or More Views Sabrina Willard NP [address] [place] [address] Phone: tel: fax: [address] [address] Referral ID Status Reason Start Date Expiration Date Visits Re quested Visits Authorized [id number] Closed 02/15/2020 03/16/2021 1 1 * MRI/CAT/PET Scan (Routine) - Closed Specialty Diagnoses / Procedures Referred By Contac t Referred To Contact Radiology Diagnoses Neuroendocrine carcinoma (HCC) Procedures CT soft tissue neck with contrast Sabrina Willard NP [address] [place] [address] Phone: tel: fax: [address] [phone] Referral ID Status Reason Start Date Expiration Date Visits Re quested Visits Authorized [id number] Closed 02/15/2020 03/16/2021 1 1 Reason for Visit * Episode Based Medications (Routine) - Authorized Specialty Diagnoses / Procedures Referred By Evelyne t Referred To Contact Oncology Diagnoses 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) Procedures IA OCTREOTIDE INJECTION, DEPOT Octreotide 28 Day Cycles - Carcinoid Eren Cr MD [address] [facility] [address] [facility] [place] [address] Phone: tel: fax: [address] [address] Phone: tel: fax: Referral ID Status Reason Start Date Expiration Date V isits Requested Visits Authorized [id number] Authorized 11/28/2017 02/05/2025 1 150 Encounter Details Date Type Department Care Team (Late st Contact Info) Description 02/15/2020 2:30 PM CDT Office Visit [facility] Oncology [facility] Advanced Medicine 7th [place] [address] [place] [address] Eren Cr MD [address] [facility] [address] [place] [address] Neuroendocrine carcinoma (CMS/HCC) (Primary Dx); Bone metastasis (CMS/HCC); Malignant neoplasm metastatic to liver (CMS/HCC) Social History Tobacco Use Types Packs/Day Years Used Date Smoking Tobacco: Never Smokeless Tobacco: Never Tobacco Cessation:Counseling Given: No Alcohol Use Standard Drinks/Week Comments Yes 1 (1 standard drink = 0.6 oz pur e alcohol) Comments No Sex and Gender Information Value Date Recorded Sex Assigned at Not on file Legal Sex Female 2:41 PM CARGO AGENT Gender Identity Not on file Sexual Orientation Straight 02/19/2021 9: 29 AM CDT Occupation Industry Job Start Date Job End Date retired Not on file Not on file Not on file documented as of this encounter Last Filed Vital Signs Vital Sign Reading Time Taken Comments Blood Pressure 157/82 02/15/2020 2:10 PM CDT Pulse 74 02/15/2020 2:10 PM CDT Temperature 36.9 ??C (98.4 ??F) 02/15/2020 2:10 PM CD T Respiratory Rate 20 02/15/2020 2:10 PM CDT Oxygen Saturation 96% 02/15/2020 2:10 PM CDT Inhaled Oxygen Concentration - - Weight 82.1 kg (181 lb) 02/15/2020 2:10 PM CDT Height - - Body Mass Index 32.06 01/13/2020 3:04 PM CDT documented in this encounter Progress Notes * Sabrina Willard, MANAGER UNDERWRITING - 02/15/2020 2:30 PM CDT MEDICAL ONCOLOGY OUTPATIENT ROV NOTE La Chung : 1950 DATE OF VISIT: 02/15/20 Oncology History TREATMENT HISTORY: 1. CT abdomen [...] she also underwent right colectomy in [facility] OR by Dr. Greyson Reeves. Biopsy [...] metastatic to liver (CMS/HCC) INTERVAL HISTORY: La Karishma Chung is here today for follow up visit for diagnosis of metastatic small bowel NEN??who presents??for follow-up visit. s/p SBO s/p diverting loop colostomy in April 2019. She is s/p #4 PRRT/Lutathera on 08/05/2019. She feels well overall. Patient denies fever, chill, cough, SOB, rash, pain, N/V,swelling or bleeding. Dotatate PET scan 01/25/2020 notes new C7 lesion with focal uptake that is suspicious for metastasis. The left humeral metastasis has increased in intensity and size. Multiple hepatic lesions are again seen. Many of these are stable. Decreased uptake and conspicuity of multiple bilateral lung nodules. Her case was discussed at tumor board 02/09/2020 and considered her disease stable overall with no convincing evidence of disease progression. She has no bone pains in neck or left arm. Had 1 Xgeva injection an during hospital admission in April, Calcium was low to 6.4 and Ionized Calcium was 3.66. She continues with monthly octreotide LAR injections. She naps throughout the day. She sleeps well at night. She is taking gabapentin 600 mg BID for the LLQ abdominal deep Discomfort since surgery in April. She feels this helps. She takes Cymbalta for her mood. She has a friend's that just , and was very nervous about the PET scan results. She has a lot of worry. She wants to drive to [place] with her daughter so she can visit with her sister. ALLERGIES: Allergies Allergen Reactions ??? Ezetimibe-Simvastatin Muscle pain and Unknown Muscle weakness ??? Ramipril Cough ROS: A complete review of systems was performed and was negative other than those mentioned in the aboveinterval history. All other systems negative. OBJECTIVE: Most Recent Vitals: BP: 157/82 Temp: 36.9 ??C (98.4 ??F) Temp src: Oral Pulse: 74 Resp: 20 SpO2: 96 % Weight: 82.1 kg (181 lb) PHYSICAL EXAM: ECOG PS: 1 General: well developed, well nourished female that is age appropriate in no acute distress sittingin a chair. Head: Extraocular movements are intact, oropharynx clear. No mucositis, thrush, ulcers. Neck: Supple, no lymphadenopathy or thyromegaly. Chest: Clear to auscultation bilaterally. No wheezes or rales. Unlabored breathing. Port in place and is clean and unremarkable. Heart: S1S2, RRR, no murmurs, rubs or gallops Abdomen: Soft, non tender, non distended, bowel sounds present. well healed abdominal surgical scars. LLQ ostomy with opaque bag in place. Extremities: No cyanosis, clubbing or edema. Skin: No rash or open wounds. Neurological: No focal deficit. A&O x 4 LABS: All laboratories personally reviewed and discussed with patient during office visit, selected values included below. Lab Results Component Value Date WBC 4.0 02/15/2020 HGB 12.1 02/15/2020 HCT 35.2 (L) 02/15/2020 MCV 93.9 02/15/2020 LABPLAT 117 (L) 02/15/2020 NEUTROABS 3.2 02/15/2020 CMP: Lab Results Component Value Date/Time SODIUM 141 02/15/2020 02:05 PM POTASSIUM 4.0 02/15/2020 02:05 PM CO2 29 02/15/2020 02:05 PM BUNSER 12 02/15/2020 02:05 PM GLUCOSE 123 02/15/2020 02:05 PM CREATININE 0.85 02/15/2020 02:05 PM CALCIUM 10.9 (H) 02/15/2020 02:05 PM CHLORIDE 105 02/15/2020 02:05 PM ALBUMIN 4.4 02/15/2020 02:05 PM AST 19 02/15/2020 02:05 PM ALT 13 02/15/2020 02:05 PM ALKPHOS 87 02/15/2020 02:05 PM BILITOT 0.4 02/15/2020 02:05 PM PROT 6.6 02/15/2020 02:05 PM ANIONGAP 7 02/15/2020 02:05 PM Lab Results Component Value Date MAGNESIUM 1.6 05/03/2019 Lab Results Component Value Date PHOS 2.0 (L) 05/03/2019 Tumor Marker History Some values may be hidden. Unless noted otherwise, only the newest values recorded on each date aredisplayed. Tumor Markers Latest Ref Range 09/30/19 10/27/19 11/23/19 12/21/19 Chromogranin A <93 ng/mL 161 (A) 225 (A) 213 (A) 238 (A) Troponin I (A) Abnormal value Comments are available for some flowsheets but are not being displayed. IMAGING: PET/CT Ga-68 Dotatate Skull to Thigh Narrative: EXAMINATION: Ga-68 DOTATATE -PET/CT IMAGING DATE OF STUDY: 01/25/2020 SCANNER: T RADIOPHARMACEUTICAL: 4.7 mCi Ga-68 dotatate i.v. Injection site: Right antecubital fossa HISTORY: 69-year-old woman with metastatic well-differentiated neuroendocrine tumor. She developed progression on long-acting octreotide, and underwent Lutathera treatment completed on 08/05/2019. The study is requested for restaging after completion of therapy. Subsequent treatment strategy. TECHNIQUE: After intravenous administration of Ga-68 dotatate, noncontrast CT images were obtained for attenuation correction and for fusion with emission PET images to allow for anatomical localization of PET findings. Emission PET images were then obtained. The study was interpreted on the [employer] workstation. Scanned area: skull vertex to the proximal thighs; the time from injection of tracer to start of imaging for this scan position was 50 minutes. COMPARISON: Prior Ga-68 dotatate PET/CT dated 11/19/2018. CT imaging, with most recent CT chest abdomen pelvis dated 10/27/2019. FINDINGS: The left humeral metastasis has increased in size, and intensity of uptake (axial image 68). There is also focal uptake in the right posterior elements of C7, suspicious for a metastatic lesion (axial image 103). Multiple hepatic lesions are again seen. Many of these are stable. However, 2 new lesions are seen (axial image 177 and axial image 187), both within the left lobe. There is a markedly avid para-caval node (axial image 255). There is an aortocaval node slightly inferiorly, also markedly avid (axial image 268). There are multiple tracer-avid deposits within the abdomen, which appear similar to the prior PET/CT. For example, soft tissue anterior to the stomach (axial image 229). A deposit posterior to the right rectus abdominis (axial image 255). A small deposit lateral to the left psoas muscle (axial image 262). Uptake associated with some tethered appearing bowel and a few small calcifications in the left lower quadrant (axial image 291). Multiple foci of intense uptake at multiple small bowel diverticula may be inflammatory, but could represent serosal implants. Focal uptake at the right vaginal apex is compatible with another metastatic deposit (axial image 312) Uptake associated with multiple bilateral lung nodules is decreased from prior. Examples include left apex (axial image 127), adjacent to the left major fissure (axial image 155), and in the anterior right middle lobe (axial image 162). There is mild uptake associated with the left lower quadrant ostomy, likely inflammatory. Additional CT findings: Moderate atherosclerosis. Cholecystectomy. The spleen has decreased in size, and now appears normal. Bowel anastomosis in the right lower quadrant, unchanged. High density material surrounding the proximal urethra, similar to prior CT, which may represent a urethral diverticulum with stone versus possibly urethral bulking agent. Multilevel degenerative disc disease in the spine, most pronounced at L3-L4 and L5-S1. Impression: 1. Increased size and intensity of uptake in a left humeral metastasis. New right C7 metastasis. Several liver lesions appear new, within the anterior superior left lobe. These sites are concerning for progression of disease. 2. Similar distribution of the remaining hepatic metastases. Similar distribution of disease including retroperitoneal lymph nodes and soft tissue deposits within the abdomen, including bowel serosa and vaginal apex. 3. Decreased uptake and conspicuity of multiple bilateral lung nodules. These could reflect improving metastatic disease versus resolving inflammatory process. Dictated by: Gregory Herzog M.D. The radiology attending physician has personally reviewed this study, and had reviewed and/or edited this written report and agrees with it. Electronically signed by: Zev Llanes M.D. TUMOR BOARD 02/09/2020: La Chung -1950: 69y.o (Jessi/Tayo) Patient with ileal NEN dx in 2016 s/p extensive resection including colon and BSO. Path: well-differentiated neuroendocrine tumor, G2 (Ki-67 8.2%) involving the ovary and fallopian tube. Imaging c/w residual liver and possibly vaginal cuff disease. She started octreotide on 11/07/2015 with initial stability, then progressive liver disease. On 11/19/18, Gallium dotatate PET showed diffuse metastatic disease in the chest, abdomen, and pelvis, including a lesion in the proximal left humerus. -S/p PRRT x 4 ending08/05/19. Gallium PETCT 01/25/20Pathology 10/03/2015Ga-Dotatate PET/CTs from 11/2018 and 01/2020 are compared. ---The vast majority of the metastatic disease is stable in distribution with very minimal change. Lung lesions have improved while liver lesions are more difficult to see, probably stable. No convincing evidence of disease progression. ASSESSMENT AND PLAN: Ms. 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 ??She comes in for continued treatment and follow-up. ?1.?Metastatic neuroendocrine tumor of the ilium: Discussed PET scan that notes increased avidity of the left humerus, and questionable C7 bone metastasis. Reviewed the tumor board findings that indicate she has stable disease and no convincing evidence of disease progression. Chromogranin A will continue to be followed. No advancement of therapy at this time. Liver lesions stable, and pulmonary nodules improved. 2. Osseous disease: Follow for now. History of hypocalcemia following one dose of Xgeva. Consider resumption of Xgeva in [address] scan, and would need to ensure calcium and vitamin d supplementation. Obtain left arm x-ray to follow humerus lesion. Obtain neck CT to follow the C7 lesion on PET. 3. Travel: Discussed increased risk for complications of COVID given immunocompromised status/cancer diagnosis. Advised good hand hygiene along with masks and social distancing should she travel to see her sister. 4. Mood: Offered to refer to counseling services at [facility]. She would like to try exercise first and will call us if she feels the need for a referral. Continue Cymbalta as ordered from another provider. We spent 30 minutes today reviewing everything and creating plan of care face to face. Sabrina Willard NP Division of Medical Oncology Stress Analyst completed by using M*Modal Fluency Direct speaking software, therefore, transcriptionvariances may occur. Cosigned by Eren Cr Jr., MD at 02/16/2020 3:51 PM CDT documented in this encounter Plan of Treatment Not on file documented as of this encounter Results * (ABNORMAL) Chromogranin A (05/09/2020 2:30 PM CARGO AGENT) Pathologist [facility] [place] Chromogranin A 344(H) <93 ng/mL JASON BLACK Comment: Impaired renal or hepatic function or treatment with proton pump inhibitors may result in artifactual elevations of Chromogranin A. ADDITIONAL INFORMATION This test was developed and its performance characteristics determined by [facility] in a manner consistent with CLIA [...] absence of malignant disease. Test Performed by: [place] [address] Anode Builder: Immanuel Novak M.D. Ph.D.; CLIA# [id number] Blood specimen (specimen) 05/09/2020 2:30 PM CARGO AGENT 05/09/2020 6:38 PM CARGO AGENT Sabrina Willard NP LAB BLOOD ORDERABLES Final R esult JASON BLACK [facility] Department of Laboratories [place], [place] [id number] * (ABNORMAL) Comprehensive metabolic panel (05/09/2020 2:30 PM CARGO AGENT) Pathologist [facility] [place] Sodium 142 135 - 145 mmol/L JASON BLACK Comment:Testing performed by : [facility], [address] [facility] [phone] Potassium, pl 4.3 3.3 - 4.9 mmol/L JASON BLACK Comment:Testing performed by : [facility], [address] [facility] [phone] Chloride 108 97 - 110 mmol/L JASON BLACK Comment:Testing performed by : [facility], [facility] [address] CO2 28 22 - 32 mmol/L JASON BLACK Comment:Testing performed by : [facility], [address] [place] [phone] Anion gap 6 2 - 15 mmol/L CERNER BJ Comment:Testing performed by : [facility], [address] [place] [phone] BUN 12 8 - 25 mg/dL CERNER BJ Comment:Testing performed by : [facility], [address] [place] [phone] Creatinine 0.82 0.60 - 1.10 mg/dL CERNER BJ Comment:Testing performed by : [facility], [address] [place] [phone] Glucose 121 70 - 199 mg/dL CERNER [...] was last revised 2017. Testing performed by: [facility], [address] [place] [phone] Calcium 11.1(H) 8.5 - 10.3 mg/dL CERNER BJ Comment:Testing performed by : [facility], [address] [place] [phone] Bilirubin, total 0.4 0.1 - 1.2 mg/dL CERNER BJ Comment:Testing performed by : [facility], [address] [place] [phone] Protein, pl 7.2 6.5 - 8.5 g/dL CERNER BJ Comment:Testing performed by : [facility], [address] [place] [phone] Albumin 4.4 3.5 - 5.0 g/dL CERNER BJ Comment:Testing performed by : [facility], [address] [place] [phone] Alk phos 105 40 - 130 Units/L JASON BLACK Comment:Testing performed by : [facility], [address] [place] [phone] ALT 17 7 - 45 Units/L JASON BLACK Comment:Testing performed by : [facility], [address] [place] [phone] AST 22 10 - 45 Units/L JASON BLACK Comment:Testing performed by : [facility], [address] [place] [phone] Blood specimen (specimen) 05/09/2020 2:30 PM CARGO AGENT 05/09/2020 2:32 PM CARGO AGENT Sabrina Willard NP LAB BLOOD ORDERABLES Final R esult Performing Organization Address City/State/[facility] Co de Phone Number JASON BLACK [facility] Department [place] [address] * (ABNORMAL) CBC with auto differential (05/09/2020 2:30 PM CARGO AGENT) WBC 5.3 3.8 - 9.8 K/cumm JASON BLACK Comment:Testing performed by : [facility], [address] [place] [phone] Hgb 13.6 12.1 - 15.1 g/dL JASON BLACK Comment:Testing performed by : [address] [address] Hct 39.4 36.1 - 44.3 % JASON BLACK Comment:Testing performed by : [facility], [address] [place] [phone] Plt 136(L) 140 - 440 K/cumm JASON BLACK Comment:Testing performed by : [address] [address] MPV 7.5 6.8 - 10.4 fL JASON BLACK Comment:Testing performed by : [address] [phone] RBC 4.26 3.90 - 5.00 M/cumm JASON BLACK Comment:Testing performed by : [facility], [address] [place] [phone] MCV 92.5 80.0 - 97.6 fL JASON BLACK Comment:Testing performed by : [facility], [address] [place] [phone] MCH 31.9 26.7 - 33.7 pg JASON BLACK Comment:Testing performed by : [facility], [address] [place] [phone] MCHC 34.5 32.7 - 35.5 g/dL JASON BLACK Comment:Testing performed by : [facility], [address] [place] [phone] RDW CV 13.4 11.8 - 14.6 % JASON BLACK Comment:Testing performed by : [facility], [address] [place] [phone] NRBC abs 0.01 0.00 - 0.01 K/cumm J[facility]ON [facility] Comment:Testing performed by : [facility], [address] [place] [phone] Blood specimen (specimen) 05/09/2020 2:30 PM CARGO AGENT 05/09/2020 2:32 PM CARGO AGENT Sabrina Willard NP LAB BLOOD ORDERABLES Final R esult Performing Organization Address City/State/[facility] Co de Phone Number JASON [facility] Department [place] [address] * CT soft tissue neck with contrast [...] are normal. The limited view of the [place] is unremarkable. The visualized portions [...] are normal. The limited view of the [place] is unremarkable. The visualized portions [...] IMG CT PROCEDURES Final Resu lt * XR Humerus Left 2 or More [...] signed by: Petros Viveros M.D. Sabrina Willard NP IMG XR PROCEDURES Final Resu lt * (ABNORMAL) Comprehensive metabolic panel (04/11/2020 3:49 PM CDT) Sodium 143 135 - 145 mmol/L CERNER BJ Comment:Testing performed by : [facility], [address] [place] [phone] Potassium, pl 4.1 3.3 - 4.9 mmol/L CERNER BJ Comment:Testing performed by : [facility], [address] [place] [phone] Chloride 107 97 - 110 mmol/L CERNER BJ Comment:Testing performed by : [facility], [address] [place] [phone] CO2 29 22 - 32 mmol/L CERNER BJ Comment:Testing performed by : [facility], [address] [place] [phone] Anion gap 7 2 - 15 mmol/L CERNER BJ Comment:Testing performed by : [address] [phone] BUN 12 8 - 25 mg/dL CERNER BJ Comment:Testing performed by : [facility], [address] [place] [phone] Creatinine 0.79 0.60 - 1.10 mg/dL CERNER BJ Comment:Testing performed by : [address] [phone] Glucose 131 70 - 199 mg/dL CERNER [...] was last revised 2017. Testing performed by: [facility], [address] [place] [phone] Calcium 10.8(H) 8.5 - 10.3 mg/dL CERNER [facility] Comment:Testing performed by : [facility], [address] [place] [phone] Bilirubin, total 0.3 0.1 - 1.2 mg/dL CERNER [facility] Comment:Testing performed by : [facility], [address] [place] [phone] Protein, pl 6.9 6.5 - 8.5 g/dL CERNER [facility] Comment:Testing performed by : [address] [phone] Albumin 4.5 3.5 - 5.0 g/dL CERNER [facility] Comment:Testing performed by : [facility], [address] [place] [phone] Alk phos 90 40 - 130 Units/L CERNER [facility] Comment:Testing performed by : [facility], [address] [place] [phone] ALT 16 7 - 45 Units/L C[facility] Comment:Testing performed by : [address] [phone] AST 21 10 - 45 Units/L CERNER [facility] Comment:Testing performed by : [facility], [address] [place] [phone] Blood specimen (specimen) 04/11/2020 3:49 PM CDT 04/11/2020 3:50 PM CDT us Sabrina Willard NP LAB BLOOD ORDERABLES Final R esult [facility] Department [place] [address] * (ABNORMAL) CBC with auto differential (04/11/2020 3:49 PM CDT) WBC 4.0 3.8 - 9.8 K/cumm CERNER BJ Comment:Testing performed by : [facility], [address] [place], [place] [phone] Hgb 12.7 12.1 - 15.1 g/dL CERNER BJ Comment:Testing performed by : [facility], [address] [place], [place] [phone] Hct 37.0 36.1 - 44.3 % CERNER BJ Comment:Testing performed by : [place] [phone] Plt 121(L) 140 - 440 K/cumm CERNER BJ Comment:Testing performed by : [place] [phone] MPV 7.2 6.8 - 10.4 fL CERNER BJ Comment:Testing performed by : [place] [phone] RBC 3.98 3.90 - 5.00 M/cumm CERNER BJ Comment:Testing performed by : [place] [phone] MCV 93.0 80.0 - 97.6 fL CERNER BJ Comment:Testing performed by : [place] [phone] MCH 31.9 26.7 - 33.7 pg CERNER BJ Comment:Testing performed by : [place] [phone] MCHC 34.4 32.7 - 35.5 g/dL CERNER BJ Comment:Testing performed by : [place] [phone] RDW CV 13.5 11.8 - 14.6 % CERNER BJ Comment:Testing performed by : [place] [phone] NRBC abs 0.00 0.00 - 0.01 K/cumm CERNER BJ Comment:Testing performed by : [facility], [address] [facility] [phone] Blood specimen (specimen) 04/11/2020 3:49 PM CDT 04/11/2020 3:50 PM CDT Sabrina Willard NP LAB BLOOD ORDERABLES Final R esult Performing Organization Address [facility] de Phone Number [facility] [place] [address] * (ABNORMAL) Chromogranin A (04/11/2020 3:25 PM CDT) Chromogranin A 250(H) <93 ng/mL JASON [facility] Comment: Impaired renal or hepatic function or treatment with proton pump inhibitors may result in artifactual elevations of Chromogranin A. ADDITIONAL INFORMATION This test was developed and its performance characteristics determined by [facility] in a manner consistent with CLIA [...] of malignant disease. Test Performed by: [facility] - [address] [address] Anode Builder: Immanuel Novak M.D. Ph.D.; CLIA# [id number] Blood specimen (specimen) 04/11/2020 3:25 PM CDT 04/11/2020 7:55 PM CDT Sabrnia Willard MANAGER UNDERWRITING LAB BLOOD ORDERABLES Final R esult Performing Organization Address [facility] Co de Phone Number JASON [facility] [place] [address] * (ABNORMAL) Chromogranin A (03/15/2020 3:27 PM CDT) Chromogranin A 274(H) <93 ng/mL JASON [facility] Comment: Impaired renal or hepatic function or treatment with proton pump inhibitors may result in artifactual elevations of Chromogranin A. ADDITIONAL INFORMATION This test was developed and its performance characteristics determined by [facility] in a manner consistent with CLIA [...] absence of malignant disease. Test Performed by: [place] [address] Anode Builder: Immanuel Novak M.D. Ph.D.; CLIA# [id number] Blood specimen (specimen) 03/15/2020 3:27 PM CDT 03/15/2020 5:11 PM CDT Sabrina Willard NP LAB BLOOD ORDERABLES Final R esult JASON BLACK [facility] Department of Laboratories [place], [place] [id number] * (ABNORMAL) Comprehensive metabolic panel (03/15/2020 3:27 PM CDT) Pathologist [facility] [place] Sodium 139 135 - 145 mmol/L JASON BLACK Comment:Testing performed by : [facility], [facility] [address] Potassium, pl 3.8 3.3 - 4.9 mmol/L JASON BLACK Comment:Testing performed by : [facility], [facility] [address] Chloride 104 97 - 110 mmol/L JASON BLACK Comment:Testing performed by : [facility], [address] [place] [phone] CO2 29 22 - 32 mmol/L CERNER BJ Comment:Testing performed by : [facility], [address] [place] [phone] Anion gap 6 2 - 15 mmol/L CERNER BJ Comment:Testing performed by : [facility], [address] [place] [phone] BUN 13 8 - 25 mg/dL CERNER BJ Comment:Testing performed by : [facility], [address] [place] [phone] Creatinine 0.84 0.60 - 1.10 mg/dL CERNER BJ Comment:Testing performed by : [facility], [address] [place] [phone] Glucose 128 70 - 199 mg/dL CERNER BJ Comment: [...] was last revised 2017. Testing performed by: [facility], [address] [place] [phone] Calcium 11.1(H) 8.5 - 10.3 mg/dL CERNER BJ Comment:Testing performed by : [facility], [address] [place] [phone] Bilirubin, total 0.4 0.1 - 1.2 mg/dL CERNER BJ Comment:Testing performed by : [facility], [address] [place] [phone] Protein, pl 6.9 6.5 - 8.5 g/dL CERNER BJ Comment:Testing performed by : [facility], [address] [place] [phone] Albumin 4.6 3.5 - 5.0 g/dL CERNER BJ Comment:Testing performed by : [facility], [address] [place] [phone] Alk phos 98 40 - 130 Units/L JASON BLACK Comment:Testing performed by : [facility], [address] [place], [place] [phone] ALT 15 7 - 45 Units/L JASON BLACK Comment:Testing performed by : [facility], [address] [place] [phone] AST 22 10 - 45 Units/L JASON BLACK Comment:Testing performed by : [facility], [address] [place] [phone] Blood specimen (specimen) 03/15/2020 3:27 PM CDT 03/15/2020 3:29 PM CDT Sabrina Willard NP LAB BLOOD ORDERABLES Final R esult Performing Organization Address City/State/[facility] Co de Phone Number JASON BLACK [facility] Department [place] [address] * (ABNORMAL) CBC with auto differential (03/15/2020 3:27 PM CDT) WBC 4.3 3.8 - 9.8 K/cumm JASON BLACK Comment:Testing performed by : [facility], [address] [place] [phone] Hgb 13.1 12.1 - 15.1 g/dL JASON BLACK Comment:Testing performed by : [facility], [address] [place] [phone] Hct 37.2 36.1 - 44.3 % JASON BLACK Comment:Testing performed by : [facility], [address] [place] [phone] Plt 120(L) 140 - 440 K/cumm JASON BLACK Comment:Testing performed by : [address] [phone] MPV 7.9 6.8 - 10.4 fL JASON BLACK Comment:Testing performed by : [address] [phone] RBC 3.95 3.90 - 5.00 M/cumm JASON BLACK Comment:Testing performed by : [facility], [address] [place] [phone] MCV 94.3 80.0 - 97.6 fL JASON BLACK Comment:Testing performed by : [facility], [address] [place] [phone] MCH 33.1 26.7 - 33.7 pg JASON BLACK Comment:Testing performed by : [facility], [address] [place] [phone] MCHC 35.1 32.7 - 35.5 g/dL JASON BLACK Comment:Testing performed by : [facility], [address] [place] [phone] RDW CV 13.2 11.8 - 14.6 % JASON BLACK Comment:Testing performed by : [facility], [address] [place] [phone] NRBC abs 0.00 0.00 - 0.01 K/cumm JASON BLACK Comment:Testing performed by : [facility], [address] [place] [phone] Blood specimen (specimen) 03/15/2020 3:27 PM CDT 03/15/2020 3:29 PM CDT Sabrina Willard NP LAB BLOOD ORDERABLES Final R esult Performing Organization Address City/State/[facility] Co de Phone Number JASON [facility] Department [place] [address] documented in this encounter Visit Diagnoses Diagnosis [...] Ordered Date ONCBCN CLINIC APPOINTMENT REQUEST 2 020 02/15/2020 ONCBCN INJECTION APPOINTMENT REQUEST 3 08/201903/15/2020 ONCBCN LAB APPOINTMENT 3 05/09/202003/15 documented in this encounter Care Teams Sas Bi Developer Relationship Specialty Start Date End Date Julio César Briseno MD PCP - General 10/01/16 Eren Cr MD Referring Physician Medical Oncology 11/25/18 Yohana Bowen MD Radiation Oncologist Radiation Oncology 11/25/18 documented as of this encounter
--- OUTSIDE RECORDS SUMMARY | 2024-06-25 22:32 | XMS_ITS | Encounter Summary ---
Author Organization [facility] Address [address] [place] [address] Phone Care Team Providers Care Lane Attendant Name Role Phone Julio César Briseno MD Primary Care Provider Eren Cr MD Unavailable [phone] Yohana Bowen MD Unavailable Encounter Details Date Type Department Care Team (Late st Contact Info) Description 11/16/2019 Orders Only [facility] Oncology [address] [place] [address] Sola Heredia Social History Tobacco Use Types Packs/Day Years Used Date Smoking Tobacco: Never Smokeless Tobacco: Never Alcohol Use Standard Drinks/Week Comments Yes 1 (1 standard drink = 0.6 oz pur e alcohol) Comments No Sex and Gender Information Value Date Recorded Sex Assigned at Not on file 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 Gender Identity Not on file Sexual [...] times a day 90 tablet 11 11/16/2019 11/16/2019 documented in this encounter Plan of Treatment Not on file documented as of this encounter Visit Diagnoses Not on filedocumented in this encounter Discontinued Medications Medication Sig Discontinue Reason Start Date End Da te gabapentin (NEURONTIN) 300 mg capsule Take 1 capsule nightly for 7 days, then take 1 capsule twice daily for 7 days, then take 1 capsule three times daily thereafter Dose adjustment 09/24/2019 11/16/2019 documented as of this encounter Care Teams Lane Attendant Relationship Specialty Start Date End Date Julio César Briseno MD PCP - General 10/01/16 Eren Cr MD Referring Physician Medical Oncology 11/25/18 Yohana Bowen MD Radiation Oncologist Radiation Oncology 11/25/18 documented as of this encounter
--- OUTSIDE RECORDS SUMMARY | 2024-06-25 22:32 | XMS_ITS | Encounter Summary ---
Author Organization [facility] Address [address] [place] [address] Phone Care Team Providers Care Income Tax Adjuster Name Role Phone Julio César Briseno MD Primary Care Provider [phone] Eren Cr MD Unavailable [phone] Yohana Bowen MD Unavailable Reason for Visit * Reason Comments Osteoporosis * Diagnostic Imaging (Routine) - Closed Specialty Diagnoses / Procedures Referred By Evelyne bowman Referred To Contact Diagnoses Abnormal bone density screening Procedures Dexa Axial Skeleton Bone Density 1 or 2 Site Oksana Rivas NP Phone: tel: fax: [facility] (All Locations) Referral ID Status Reason Start Date Expiration Date Visits Re quested Visits Authorized [id number] Closed 01/13/2020 07/24/2021 1 1 Encounter Details Date Type Department Care Team (Latest Contact Info) Description 03/10/2020 9:30 AM CDT Clinical Support [facility] [address] [facility] 5th [place] [address] [place] [address] Abnormal bone density screening; Osteopenia of left hip Social History Tobacco Use Types Packs/Day Years Used Date Smoking Tobacco: Never Smokeless Tobacco: Never Alcohol Use Standard Drinks/Week Comments Yes 1 (1 standard drink = 0.6 oz pur e alcohol) Comments No Sex and Gender Information Value Date Recorded Sex Assigned at Not on file 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 Gender Identity Not on file Sexual Orientation Straight 02/19/2021 9: 29 AM CDT Occupation Industry Job Start Date Job End Date retired Not on file Not on file Not on file documented as of this encounter Plan of Treatment Not on file documented as of this encounter Procedures Procedure Name Priority Date/Time Associated Diagnosis Comments DEXA AXIAL SKELETON BONE DENSITY 1 OR MORE SITES Schedule Routine, Read Routine (OP Routine) 03/10/2020 9:58 AM CDT Abnormal bone density screening documented in this encounter Results * Dexa Axial Skeleton Bone Density 1 or 2 Site (03/10/2020 9:58 AM CDT) Anatomical Region Laterality Modality Body N/A Radiographic Gabbie ging Narrative 03/12/2020 2:39 PM CDT Patient Name: La Chung Date of : 1950 Date of scan: 03/10/2020 Bone mineral density was performed on a HoloMessageGate Discovery Densitometer. ?? Machine Cross-calibration and Precision [...] of Internal Medicine 114(11): ??919-923 (1990) 2) Fagan, Lancet 341 : 72-75 (1992) 3) Jonny, [...] by the International Society of Clinical Densitometry. [id number] Oksana Rivas CEMENTER MACHINE JOINER IMG DXA PROCEDURES Final Result documented in this encounter Visit Diagnoses Diagnosis Abnormal bone density screening Osteopenia of left hip documented in this encounter Care Teams Income Tax Adjuster Relationship Specialty Start Date End Date Julio César Briseno MD PCP - General 10/01/16 Eren Cr MD Referring Physician Medical Oncology 11/25/18 Yohana Bowen MD Radiation Oncologist Radiation Oncology 11/25/18 documented as of this encounter
--- OUTSIDE RECORDS SUMMARY | 2024-06-25 22:32 | XMS_ITS | Encounter Summary ---
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) Procedures [place] OCTREOTIDE INJECTION, DEPOT Octreotide 28 Day Cycles - Carcinoid Eren Cr MD [address] [place] [address] Phone: tel: fax: [facility] [address] [address] Phone: tel: fax: Referral ID Status Reason Start Date Expiration Date V isits Requested Visits Authorized [id number] Authorized 11/28/2017 02/05/2025 1 150 Encounter Details Date Type Department Care Team (Late st Contact Info) Description 11/23/2019 3:30 PM CDT Infusion [facility] Oncology [address] [place] [address] [place] [address] Neuroendocrine carcinoma (CMS/HCC) (Primary Dx); Malignant neoplasm [...] Legal 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 Gender Identity Not on file Sexual Orientation Straight 02/19/2021 9: 29 AM CDT Occupation Industry Job Start Date Job End Date retired Not on file Not on file Not on file documented as of this encounter Last Filed Vital Signs Vital Sign Reading Time Taken Comments Blood Pressure 149/66 11/23/2019 4:01 PM CDT Pulse 85 11/23/2019 4:01 PM CDT Temperature 36.6 ??C (97.9 ??F) 11/23/2019 4:01 PM CD T Respiratory Rate 18 11/23/2019 4:01 PM CDT Oxygen Saturation 97% 11/23/2019 4:01 PM CDT Inhaled Oxygen Concentration - - Weight 81.7 kg (180 lb 3.2 oz) 11/23/2019 4:01 P M CDT Height - - Body Mass Index 31.92 07/29/2019 6:18 AM PROFESSOR OF ENGLISH documented in this encounter Nursing Notes * Batsheva Santizo RN - 11/23/2019 3:30 PM CDT Pt tolerated injection to L dorsogluteal area well. Given in this site per pt request. Aware of next appts. Discharged in stable condition. documented in this [...] 30 mg 30 mg, intramuscular, Once, On 11/23/19 at 1615, For 1 dose, Refrigerate. For IM intragluteal administration only- alternate gluteal sites. 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),Neuroendocrine carcinoma (HCC) Given 11/23/2019 4:16 PM CDT 30 mg Left Dorsogluteal/Butt ock documented in this encounter Orders Medications Ordered That Brett ht Not Have Been Administered Count Last Ordered Date First Ordered Date octreotide LAR (SandoSTATIN LAR) extended release intramuscular injection 30 mg 1 11/23/2019 Appointment Requests Count Last Ordered Date Fi rst Ordered Date ONCBCN INJECTION APPOINTMENT REQUEST 1 11/05 documented in this encounter Care Teams Inspector Of Weights And Measures Relationship Specialty Start Date End Date Julio César Briseno MD PCP - General 10/01/16 Eren Cr MD Referring Physician Medical Oncology 11/25/18 Yohana Bowen MD Radiation Oncologist Radiation Oncology 11/25/18 documented as of this encounter
--- OUTSIDE RECORDS SUMMARY | 2024-06-25 22:32 | XMS_ITS | Encounter Summary ---
Author Organization [facility] Address [address] [place] [address] Phone Care Team Providers Care Christmas Bell Ringer Name Role Phone Julio César Briseno MD Primary Care Provider [phone] Eren Cr MD Unavailable [phone] Yohana Bowen MD Unavailable Reason for Visit * Reason Comments Injections * Episode Based Medications (Routine) - Authorized Specialty Diagnoses / Procedures Referred By Contellen t Referred To Contact Oncology Diagnoses Neuroendocrine carcinoma (HCC) 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) Procedures [place] OCTREOTIDE INJECTION, DEPOT Octreotide 28 Day Cycles - Carcinoid Eren Cr MD [address] [address] [place] [address] Phone: tel: fax: [address] [address] Phone: tel: fax: Referral ID Status Reason Start Date Expiration Date V isits Requested Visits Authorized [id number] Authorized 11/28/2017 02/05/2025 1 150 Encounter Details Date Type Department Care Team (Late st Contact Info) Description 12/21/2019 3:30 PM CDT Infusion [facility] Oncology [address] [place] [address] for [facility] 7th [place] [address] Neuroendocrine carcinoma (CMS/HCC) (Primary Dx); Malignant neoplasm metastatic to liver (CMS/HCC) Social History Tobacco Use Types Packs/Day Years Used Date Smoking Tobacco: Never Smokeless Tobacco: Never Alcohol Use Standard Drinks/Week Comments Yes 1 (1 standard drink = 0.6 oz pur e alcohol) Comments No Sex and Gender Information Value Date Recorded Sex Assigned at Not on file 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 Gender Identity Not on file Sexual Orientation Straight 02/19/2021 9: 29 AM CDT Occupation Industry Job Start Date Job End Date retired Not on file Not on file Not on file documented as of this encounter Last Filed Vital Signs Vital Sign Reading Time Taken Comments Blood Pressure 128/77 12/21/2019 2:48 PM CDT Pulse 72 12/21/2019 2:48 PM CDT Temperature 37 ??C (98.6 ??F) 12/21/2019 2:48 PM CDT Respiratory Rate 20 12/21/2019 2:48 PM CDT Oxygen Saturation 97% 12/21/2019 2:48 PM CDT Inhaled Oxygen Concentration - - Weight 81.4 kg (179 lb 7.3 oz) 12/21/2019 2:48 P M CDT Height - - Body Mass Index 31.79 07/29/2019 6:18 AM WOOL CARDER documented in this encounter Nursing Notes * Segundo Erazo RN - 12/21/2019 3:30 PM CDT Tolerated treatment well No new complaints. Left ambulatory. documented in this encounter Plan of [...] 30 mg 30 mg, intramuscular, Once, On 12/21/19 at 1500, For 1 dose, Refrigerate. For IM intragluteal administration only- alternate gluteal sites. 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),Neuroendocrine carcinoma (HCC) Given 12/21/2019 3:02 PM CDT 30 mg Right Dorsogluteal/Butt ock documented in this encounter Orders Medications Ordered That Brett ht Not Have Been Administered Count Last Ordered Date First Ordered Date octreotide LAR (SandoSTATIN LAR) extended release intramuscular injection 30 mg 1 12/21/2019 Appointment Requests Count Last Ordered Date Fi rst Ordered Date ONCBCN INJECTION APPOINTMENT REQUEST 1 12/06 documented in this encounter Care Teams Christmas Bell Ringer Relationship Specialty Start Date End Date Julio César Briseno MD PCP - General 10/01/16 Eren Cr MD Referring Physician Medical Oncology 11/25/18 Yohana Bowen MD Radiation Oncologist Radiation Oncology 11/25/18 documented as of this encounter
--- OUTSIDE RECORDS SUMMARY | 2024-06-25 22:32 | XMS_ITS | Encounter Summary ---
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 [facility] [address] [place] [address] Phone: tel: fax: [address] [phone] Referral ID Status Reason Start Date Expiration Date Visits Re quested Visits Authorized [id number] Closed 07/27/2019 02/04/2021 2 2 Reason for Visit * Diagnostic Imaging (Routine) - Closed Specialty Diagnoses / Procedures Referred By Contac t Referred To Contact Radiology Diagnoses Malignant neoplasm metastatic to liver (HCC) Procedures PET/CT Ga-68 Dotatate Skull to Thigh Yoahna Bowen MD [address] [facility] [address] [place] [address] Phone: tel: fax: [facility] [address] [place] [address] Referral ID Status Reason Start Date Expiration Date Visits Re quested Visits Authorized [id number] Closed 07/27/2019 02/04/2021 2 2 Encounter Details Date Type Department Care Team (Latest Contact Info) Description 01/25/2020 1:55 PM CDT - 01/25/2020 11:59 PM CDT Hospital Encounter [facility] [address] [place] [address] Yohana Bowen MD [address] [facility] [address] [place] [address] Malignant neoplasm metastatic to liver (CMS/HCC) Discharge [...] on file Legal Sex Female 2:41 PM [facility] Gender Identity Not on file Sexual Orientation [...] - - Weight 83 kg (183 lb) 01/25/2020 2:17 PM CDT Height - - Body Mass Index 32.42 01/13/2020 3:04 PM CDT documented in this encounter Medications at Time of Discharge ostomy supplies misc Patient has colostomy and needs Cavilon 3M skin barrier film to manage. 20 each 6 09/21/2019 simvastatin (ZOCOR) 20 mg tablet Take 1 tablet (20 mg total) by mouth nightly ascorbic acid, vitamin C, 500 mg capsuleIndications :supplement Take 1 tablet by mouth printer maintainer before breakfast 07/04/2016 4 cholecalciferol (VITAMIN D-3) 2,000 unit capsule Take 1 capsule (2,000 Units total) by mouth daily 30 capsule 2 04/25/2019 3 cholestyramine (QUESTRAN) 4 gram packet Take 1 packet by mouth 3 (three) times a day with meals 270 packet 3 09/04/2019 2 clotrimazole-betam ethasone (LOTRISONE) cream Apply 1 Application topically daily as needed (rash) 4 coenzyme [id number] 100-5 mg-unit capsuleIndications :supplement Take 1 tablet by mouth printer maintainer before breakfast [address] (CYMBALTA) 30 [...] THIGH Schedule Routine, Read Routine (OP Routine) 01/25/2020 4:55 PM CDT Malignant neoplasm metastatic to liver (CMS/HCC) documented in this encounter Results * PET/CT Ga-68 Dotatate Skull to Thigh (01/25/2020 4:55 PM CDT) Anatomical Region Laterality Modality Positron Emissio n Tomography (PET) 01/25/2020 5:32 PM CDT Impressions 01/25/2020 7:17 PM CDT 1. ??Increased size and intensity of uptake in a left humeral metastasis. ??New right C7 metastasis. ??Several liver lesions appear new, within the anterior superior left lobe. ??These sites are concerning for progression of disease. 2. ??Similar distribution of the remaining hepatic metastases. Similar distribution of disease including retroperitoneal lymph nodes and soft tissue deposits within the abdomen, including bowel serosa and vaginal apex. 3. ??Decreased uptake and conspicuity of multiple bilateral lung nodules. ??These could reflect improving metastatic disease versus resolving inflammatory process. ?? Dictated by: Gregory Herzog M.D. The radiology attending physician has personally reviewed this study, and had reviewed and/or edited this written report and agrees with it. Electronically signed by: Zev Llanes M.D. Narrative 01/25/2020 7:17 PM CDT EXAMINATION: Ga-68 DOTATATE -PET/CT IMAGING DATE OF STUDY: ??01/25/2020 SCANNER: [facility] RADIOPHARMACEUTICAL: 4.7 mCi Ga-68 dotatate i.v. ??Injection site: Right antecubital fossa HISTORY: 69-year-old woman with metastatic well-differentiated neuroendocrine tumor. ??She developed progression on long-acting octreotide, and underwent Lutathera treatment completed on 08/05/2019. ??The study is requested for restaging after completion of therapy. Subsequent treatment strategy. TECHNIQUE: ??After intravenous administration of Ga-68 dotatate, noncontrast CT images were obtained for attenuation correction and for fusion with emission PET images to allow for anatomical localization of PET findings. ??Emission PET images were then obtained. ??The study was interpreted on the [employer] workstation. ?? Scanned area: skull vertex to the proximal thighs; the time from injection of tracer to start of imaging for this scan position was 50 minutes. COMPARISON: Prior Ga-68 dotatate PET/CT dated ??11/19/2018. ??CT imaging, with most recent CT chest abdomen pelvis dated 10/27/2019. FINDINGS: ??The left humeral metastasis has increased in size, and intensity of uptake (axial image 68). ??There is also focal uptake in the right posterior elements of C7, suspicious for a metastatic lesion (axial image 103). ?? Multiple hepatic lesions are again seen. ??Many of these are stable. However, 2 new lesions are seen (axial image 177 and axial image 187), both within the left lobe. There is a markedly avid para-caval node (axial image 255). ??There is an aortocaval node slightly inferiorly, also markedly avid (axial image 268). There are multiple tracer-avid deposits within the abdomen, which appear similar to the prior PET/CT. ??For example, soft tissue anterior to the stomach (axial image 229). ??A deposit posterior to the right rectus abdominis (axial image 255). ??A small deposit lateral to the left psoas muscle (axial image 262). ??Uptake associated with some tethered appearing bowel and a few small calcifications in the left lower quadrant (axial image 291). Multiple foci of intense uptake at multiple small bowel diverticula may be inflammatory, but could represent serosal implants. ??Focal uptake at the right vaginal apex is compatible with another metastatic deposit (axial image 312) Uptake associated with multiple bilateral lung nodules is decreased from prior. ??Examples include left apex (axial image 127), adjacent to the left major fissure (axial image 155), and in the anterior right middle lobe (axial image 162). There is mild uptake associated with the left lower quadrant ostomy, likely inflammatory. Additional CT findings: Moderate atherosclerosis. ??Cholecystectomy. The spleen has decreased in size, and now appears normal. ??Bowel anastomosis in the right lower quadrant, unchanged. ??High density material surrounding the proximal urethra, similar to prior CT, which may represent a urethral diverticulum with stone versus possibly urethral bulking agent. ??Multilevel degenerative disc disease in the spine, most pronounced at L3-L4 and L5-S1. Procedure Note Zev Llanes MD - 01/25/2020 EXAMINATION: Ga-68 DOTATATE -PET/CT IMAGING DATE OF STUDY: 01/25/2020 SCANNER: [facility] RADIOPHARMACEUTICAL: 4.7 mCi Ga-68 dotatate i.v. Injection [...] obtained. The study was interpreted on the [employer] workstation. Scanned area: skull vertex to the [...] spine, most pronounced at L3-L4 and L5-S1. IMPRESSION: 1. Increased size and intensity of uptake [...] it. Electronically signed by: Zev Llanes M.D. 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) documented in this encounter Administered Medications Inactive Administered Medications - up to 3 most recent administrations Medication Order MAR Action Action Date Dose Rate Site Ga-68 dotatate injection 4.49 millicurie 4.49 millicurie, intravenous, Once in imaging, radiopharmaceutical, Starting on 01/25/20 at 1540, For 1 dose Given 01/25/2020 3:33 PM CDT 4.67 millicuries documented in this encounter Orders Medications Ordered That Brett ht Not Have Been Administered Count Last Ordered Date First Ordered Date Ga-68 dotatate injection 4.49 millicurie 1 01/25/2020 documented in this encounter Care Teams Housemaid Relationship Specialty Start Date End Date Julio César Briseno MD PCP - General 10/01/16 Eren Cr MD Referring Physician Medical Oncology 11/25/18 Yohana Bowen MD Radiation Oncologist Radiation Oncology 11/25/18 documented as of this encounter
--- OUTSIDE RECORDS SUMMARY | 2024-06-25 22:32 | XMS_ITS | Encounter Summary ---
Author Organization [facility] Healthcare Address [address] [place] [address] Care Team Providers Care Speech And Language Tutor Name Role Phone Julio César Briseno MD Primary Care Provider + [phone] Eren Cr MD Unavailable Yohana Bowen MD Unavailable Encounter Details Date Type Department Care Team (Late st Contact Info) Description 10/27/2019 1:30 PM CDT Telemedicine [facility] Radiation Oncology [address] [place] [address] [place] [address] Yohana Bowen MD [address] [facility] [address] [place], [place] [id number] Neuroendocrine carcinoma (CMS/HCC) (Primary Dx); 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) Social History Tobacco Use Types Packs/Day Years Used Date Smoking Tobacco: Never Smokeless Tobacco: Never Alcohol Use Standard Drinks/Week Comments Yes 1 (1 standard drink = 0.6 oz pur e alcohol) Comments No Sex and Gender Information Value Date Recorded Sex Assigned at Not on file 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 Patient continues to have pain at the stoma site, now on gabapentin. This has been evaluated by Dr. Reeves as well with no clear signs of disease at the stoma site to explain this pain. Continues to have watery output from stoma and per what she eats. She is taking cholestyramine to help thicken her stools. She reports occasional dizziness which she has discussed with her PCP; attributes it to her medications. She otherwise has no complaints. Interval imaging today. REVIEW OF SYSTEMS: Review of Systems - [...] 800 cGy Elapsed Course Treatment Days: 224 MEDICATIONS: Current Outpatient Medications: ??? ascorbic acid, vitamin C, 500 mg capsule ??? bisacodyl (DULCOLAX) 10 mg suppository ??? cholecalciferol (VITAMIN D-3) 2,000 unit capsule ??? cholestyramine (QUESTRAN) 4 gram packet ??? clotrimazole-betamethasone (LOTRISONE) cream ??? coenzyme [id number] (CO Q-10, WITH VIT E,) 100-5 mg-unit capsule ??? DULoxetine DR (CYMBALTA) 30 mg capsule ??? fluticasone propionate (FLONASE) 50 mcg/actuation nasal spray ??? gabapentin (NEURONTIN) 300 mg capsule ??? hydrocortisone (PROCTOSOL HC) 2.5 % rectal cream ??? montelukast (SINGULAIR) 10 mg tablet ??? olmesartan-hydrochlorothiazide (BENICAR HCT) 20-12.5 mg per tablet ??? ondansetron (ZOFRAN) 8 mg tablet ??? ostomy supplies misc ??? oxybutynin (DITROPAN) 5 mg tablet ??? oxyCODONE (ROXICODONE) 5 mg immediate release tablet ??? pantoprazole DR (PROTONIX) 40 mg EC tablet ??? simvastatin (ZOCOR) 20 mg tablet No current facility-administered medications for this visit. Facility-Administered Medications Ordered in Other Visits: ??? L-arginine 1.25%/L-lysine 1.25% infusion 1,000 mL, 1,000 mL, intravenous, Continuous ALLERGIES: Allergies Allergen Reactions ??? Ezetimibe-Simvastatin Muscle pain and Unknown Muscle weakness ??? Ramipril Cough PHYSICAL EXAMINATION: There were no vitals filed for this visit. ECOG: (0) Fully active, able to carry on all predisease performance without restriction PAIN: 0 Physical Exam Telemedicine visit CLINICAL DATA: Ct Chest Abdomen Pelvis W Contrast Result Date: 10/27/2019 Impression: Multiple areas of metastatic disease with a nodule off the inferior aspect of the liverwhich is slightly smaller and a deposit anterior to the left psoas muscle which is bigger, however the majority of the disease burden is unchanged. IMPRESSION AND PLAN: La Chung has stable to mixed response on her interval CT imaging 3 months after lutathera therapy. We will obtain interval imaging with dotatate PET/CT in 3 months as per normal schedule. She willcontinue gabapentin for her stoma site pain. She will continue octreotide with Dr. Cr. This was a telemedicine visit with La Chung, her and daughter which took place via Telephone. During the visit, I was located in my office at [facility] in [place] and the patient was located at home in [place]. The session started at 2:35 PM and ended at 2:46 PM. The patient gave verbal consent for this telemedicine encounter. The patient has been informed that the visit may not be secure and acknowledged the information. I have explained the option of participating in a telephone or video visit during the - public health emergency to the patient. After being given an opportunity to ask questions about and discuss this type of visit, the patient verbally consented to proceeding with the telephone / video visit. The patient understands that this service replaces an office visit and they may be billed and/or responsible for any applicable copayments. Yohana Bowen MD Department of Radiation Oncology documented in this encounter Plan of Treatment Not on file documented as of this encounter Visit Diagnoses Diagnosis Neuroendocrine carcinoma (HCC)- Primary Other malignant neoplasm of unspecified site Malignant neoplasm metastatic to liver (HCC) documented in this encounter Care Teams Speech And Language Tutor Relationship Specialty Start Date End Date Julio César Briseno MD PCP - General 10/01/16 Eren Cr MD Referring Physician Medical Oncology 11/25/18 Yohana Bowen MD Radiation Oncologist Radiation Oncology 11/25/18 documented as of this encounter
--- OUTSIDE RECORDS SUMMARY | 2024-06-25 22:32 | XMS_ITS | Encounter Summary ---
Author Organization [facility] Address [address] [place] [address] Phone Care Team Providers Care Orderly Name Role Phone Julio César Briseno MD Primary Care Provider [phone] Eren Cr MD Unavailable [phone] Yohana Bowen MD Unavailable Reason for Visit * Episode Based Medications (Routine) - Authorized Specialty Diagnoses / Procedures Referred By Evelyne t Referred To Contact Oncology Diagnoses Neuroendocrine carcinoma (HCC) Malignant neoplasm metastatic to liver (HCC) Procedures [place] OCTREOTIDE INJECTION, DEPOT Octreotide 28 Day Cycles - Carcinoid Eren Cr MD [address] [place] [address] Phone: tel: fax: [facility] [address] [address] Phone: tel: fax: Referral ID Status Reason Start Date Expiration Date V isits Requested Visits Authorized [id number] Authorized 11/28/2017 02/05/2025 1 150 Encounter Details Date Type Department Care Team (Late st Contact Info) Description 03/15/2020 3:15 PM CDT Lab [facility] Oncology [facility] [address] [place] [address] [place] [phone] Neuroendocrine carcinoma (CMS/HCC); 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) Social History Tobacco Use Types Packs/Day Years Used Date Smoking Tobacco: Never Smokeless Tobacco: Never Alcohol Use Standard Drinks/Week Comments Yes 1 (1 standard drink = 0.6 oz pur e alcohol) Comments No Sex and Gender Information Value Date Recorded Sex Assigned at Not on file 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 Gender Identity Not on file Sexual Orientation Straight 02/19/2021 9: 29 AM CDT Occupation Industry Job Start Date Job End Date retired Not on file Not on file Not on file documented as of this encounter Plan of Treatment Not on file documented as of this encounter Procedures Procedure Name Priority Date/Time Associated Diagnosis Comments DIFFERENTIAL AUTO Routine 03/15/2020 3:2 7 PM CDT Neuroendocrine carcinoma (CMS/HCC) 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) CHROMOGRANIN A Routine 03/15/2020 3:27 PM CDT Neuroendocrine carcinoma (CMS/HCC) 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) CBC WITH AUTO DIFFERENTIAL Routine 03/15/2020 3:27 PM CDT Neuroendocrine carcinoma (CMS/HCC) 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) COMPREHENSIVE METABOLIC PANEL Routine 03/15/2020 3:27 PM CDT Neuroendocrine carcinoma (CMS/HCC) 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) documented in this encounter Results * (ABNORMAL) Differential, auto (03/15/2020 3:27 PM CDT) Neutrophil abs 3.3 1.8 - 6.6 K/cumm JASON BLACK Comment:Testing performed by : [facility], [address] [place] [phone] Lymphocyte abs 0.4(L) 1.2 - 3.3 K/cumm JASON BLACK Comment:Testing performed by : [facility], [address] [place] [phone] Monocyte abs 0.6 0.2 - 1.2 K/cumm CERMINNIE BJ Comment:Testing performed by : [facility], [address] [place] [phone] Eosinophil abs 0.1 0.0 - 0.5 K/cumm CERMINNIE BJ Comment:Testing performed by : [facility], [address] [place] [phone] Basophil abs 0.0 0.0 - 0.2 K/cumm JASON BJ Comment:Testing performed by : [facility], [address] [place] [phone] Neutrophil pct 76.3 % CERNER BJ Comment: Interpretive Data Percent cell count reference ranges are not reported, since discordance with absolute values may lead to misinterpretation of CBC data. Current Interpretive Data was last revised on 2017. Testing performed by: [facility], [address] [place] [phone] Lymphocyte pct 8.5 % CERNER BJ Comment: Interpretive Data Percent cell count reference ranges are not reported, since discordance with absolute values may lead to misinterpretation of CBC data. Current Interpretive Data was last revised on 2017. Testing performed by: [facility], [address] [place] [phone] Monocyte pct 13.2 % CERNER BJ Comment:Testing performed by : [facility], [address] [place] [phone] Eosinophil pct 1.4 % CERNER BJ Comment:Testing performed by : [facility], [address] [place] [phone] Basophil pct 0.6 % CERNER BJ Comment:Testing performed by : [facility], [address] [place] [phone] Blood specimen (specimen) 03/15/2020 3:27 PM CDT 03/15/2020 3:29 PM CDT us Sabrina Willard NP LAB BLOOD ORDERABLES Final R esult [facility] [place] [address] * (ABNORMAL) CBC with auto differential (03/15/2020 3:27 PM CDT) WBC 4.3 3.8 - 9.8 K/cumm CERNER BJ Comment:Testing performed by : [facility], [address] [place], [place] [phone] Hgb 13.1 12.1 - 15.1 g/dL CERNER BJ Comment:Testing performed by : [facility], [address] [place], [place] [phone] Hct 37.2 36.1 - 44.3 % CERNER BJ Comment:Testing performed by : [place] [id number] Plt 120(L) 140 - 440 K/cumm CERNER BJ Comment:Testing performed by : [place] [id number] MPV 7.9 6.8 - 10.4 fL CERNER BJ Comment:Testing performed by : [place] [id number] RBC 3.95 3.90 - 5.00 M/cumm CERNER BJ Comment:Testing performed by : [place] [id number] MCV 94.3 80.0 - 97.6 fL CERNER BJ Comment:Testing performed by : [place] [id number] MCH 33.1 26.7 - 33.7 pg CERNER BJ Comment:Testing performed by : [place] [id number] MCHC 35.1 32.7 - 35.5 g/dL CERNER BJ Comment:Testing performed by : [place] [id number] RDW CV 13.2 11.8 - 14.6 % CERNER BJ Comment:Testing performed by : [place] [id number] NRBC abs 0.00 0.00 - 0.01 K/cumm CERNER BJ Comment:Testing performed by : [address] [phone] Blood specimen (specimen) 03/15/2020 3:27 PM CDT 03/15/2020 3:29 PM CDT Sabrina Willard NP LAB BLOOD ORDERABLES Final R esult [facility] Department [place] [address] * (ABNORMAL) Comprehensive metabolic panel (03/15/2020 3:27 PM CDT) Sodium 139 135 - 145 mmol/L [facility] Comment:Testing performed by : [facility], [address] [place] [phone] Potassium, pl 3.8 3.3 - 4.9 mmol/L JASON BLACK Comment:Testing performed by : [address] [phone] Chloride 104 97 - 110 mmol/L [facility] Comment:Testing performed by : [address] [address] CO2 29 22 - 32 mmol/L JASON BLACK Comment:Testing performed by : [address] [phone] Anion gap 6 2 - 15 mmol/L JASON BLACK Comment:Testing performed by : [address] [phone] BUN 13 8 - 25 mg/dL [facility] Comment:Testing performed by : [address] [phone] Creatinine 0.84 0.60 - 1.10 mg/dL [facility] Comment:Testing performed by : [address] [phone] Glucose 128 70 - 199 mg/dL [facility] Comment: Interpretive Data Fasting glucose >/= [...] Testing performed by: [facility], [address] [place] [phone] Calcium 11.1(H) 8.5 - 10.3 mg/dL [facility] Comment:Testing performed by : [facility], [address] [place] [phone] Bilirubin, total 0.4 0.1 - 1.2 mg/dL [facility] Comment:Testing performed by : [facility], [address] [place] [phone] Protein, pl 6.9 6.5 - 8.5 g/dL [facility] Comment:Testing performed by : [facility], [address] [place] [phone] Albumin 4.6 3.5 - 5.0 g/dL [facility] Comment:Testing performed by : [address] [phone] Alk phos 98 40 - 130 Units/L [facility] Comment:Testing performed by : [facility], [address] [place] [phone] ALT 15 7 - 45 Units/L [facility] Comment:Testing performed by : [address] [address] AST 22 10 - 45 Units/L [facility] Comment:Testing performed by : [facility], [address] [place] [phone] Blood specimen (specimen) 03/15/2020 3:27 PM CDT 03/15/2020 3:29 PM CDT us Sabrina Willard NP LAB BLOOD ORDERABLES Final R esult [facility] [place] [address] * (ABNORMAL) Chromogranin A (03/15/2020 3:27 PM CDT) Chromogranin A 274(H) <93 ng/mL JASON BLACK Comment: Impaired renal or hepatic function or treatment with proton pump inhibitors may result in artifactual elevations of Chromogranin A. ADDITIONAL INFORMATION This test was developed and its performance characteristics determined by [facility] in a manner consistent with CLIA requirements. [...] absence of malignant disease. Test Performed by: [facility] [address] [place] [address] Grocery Carrier: Immanuel Novak M.D. Ph.D.; CLIA# [id number] Blood specimen (specimen) 03/15/2020 3:27 PM CDT 03/15/2020 5:11 PM CDT us Sabrina Willard KITCHEN HELPER LAB BLOOD ORDERABLES Final R esult JASON BLACK [facility] Department [place] [address] documented in this encounter Visit Diagnoses Diagnosis Neuroendocrine carcinoma (HCC) Other malignant neoplasm of unspecified site Malignant neoplasm metastatic to liver (HCC) documented in this encounter Orders Appointment Requests Count Last Ordered Date Fi rst Ordered Date ONCBCN LAB APPOINTMENT 1 03/15/2020 documented in this encounter Care Teams Orderly Relationship Specialty Start Date End Date Julio César Briseno MD PCP - General 10/01/16 Eren Cr MD Referring Physician Medical Oncology 11/25/18 Yohana Bowen MD Radiation Oncologist Radiation Oncology 11/25/18 documented as of this encounter
--- OUTSIDE RECORDS SUMMARY | 2024-06-25 22:32 | XMS_ITS | Encounter Summary ---
Author Organization [facility] Address [address] [facility] [address] [place] [address] Phone Care Team Providers Care Daytime Babysitter Name Role Phone Julio César Briseno MD Primary Care Provider Eren Cr MD Unavailable Yohana Bowen MD Unavailable Reason for Visit * Reason Comments colostomy complication [facility] Encounter Details Date Type Department Care Team (Latest Contact Info) Description 04/14/2020 2:00 PM CDT Office Visit [facility] Surgery [address] [facility] 2nd Floor [address] [place] [address] Greyson Reeves MD [address] [facility] [phone] [place] [address] Neuroendocrine carcinoma (CMS/HCC) (Primary Dx); 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); Colostomy complication, unspecified (CMS/HCC) Social History Tobacco Use Types Packs/Day Years Used Date Smoking Tobacco: Never Smokeless Tobacco: Never Alcohol Use Standard Drinks/Week Comments Yes 1 (1 standard drink = 0.6 oz pur e alcohol) Comments No Sex and Gender Information Value Date Recorded Sex Assigned at Not on file 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 Gender Identity Not on file Sexual Orientation Straight 02/19/2021 9: 29 AM CDT Occupation Industry Job Start Date Job End Date retired Not on file Not on file Not on file documented as of this encounter Last Filed Vital Signs Vital Sign Reading Time Taken Comments Blood Pressure 148/78 04/14/2020 1:49 PM CDT Pulse 80 04/14/2020 1:49 PM CDT Temperature 36.6 ??C (97.8 ??F) 04/14/2020 1:49 PM CD T Respiratory Rate - - Oxygen Saturation 96% 04/14/2020 1:49 PM CDT Inhaled Oxygen Concentration - - Weight 82.6 kg (182 lb) 04/14/2020 1:49 PM CDT Height 160 cm (5' 3 ) 04/14/2020 1:49 PM CDT Body Mass Index 32.24 04/14/2020 1:49 PM CDT documented in this encounter Progress Notes * Greyson Reeves MD - 04/14/2020 2:00 PM CDT Colorectal Surgery Clinic Visit Chief Complaint: La Chung is a 69 y.o. female with chief complaint of colostomy complication (PEH) HPI: 69-year-old woman with metastatic neuroendocrine tumor and an end colostomy presents with painand bleeding of the stoma. 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 This has been treated with cauterization in the past. She is having pain and discomfort associated with that is it is tender to the touch and she will have intermittent bleeding particularlywhen she changes her appliance. She is also having some left upper quadrant pain that is fleeting in inconsistent. It is not associated with eating or functioning of her stoma. And she does not having obstructive symptoms. Her most recent PET scan, which I personally reviewed the images demonstrates no obvious pathology or reason for her associated pain. Past Medical History: Diagnosis Date ??? Cancer [...] > 5 YEARS N/A 08/04/2019 ? ? ID REMOVAL OF TONSILS,<12 Y/O Tonsillectomy - (Added by TW Conv) ??? ID TOTAL ABDOM HYSTERECTOMY Hysterectomy - (Added by TW Conv) HOME MEDICATIONS : ascorbic acid, vitamin C, 500 mg capsule cholecalciferol (VITAMIN D-3) 2,000 unit capsule cholestyramine (QUESTRAN) 4 gram packet clotrimazole-betamethasone (LOTRISONE) cream coenzyme [id number] (CO Q-10, WITH VIT E,) 100-5 mg-unit capsule DULoxetine DR (CYMBALTA) 30 mg capsule fluticasone propionate (FLONASE) 50 mcg/actuation nasal spray gabapentin (NEURONTIN) 600 mg tablet montelukast (SINGULAIR) 10 mg tablet olmesartan-hydrochlorothiazide (BENICAR HCT) 20-12.5 mg per tablet ondansetron (ZOFRAN) 8 mg tablet ostomy supplies misc oxybutynin (DITROPAN) 5 mg tablet simvastatin (ZOCOR) 20 mg tablet Allergies Allergen Reactions ??? Ezetimibe-Simvastatin [...] HPI and scanned media. Vitals: Vitals BP 148/78 Pulse 80 Temp 36.6 ??C (97.8 ??F) Ht 160 cm (5' 3 ) Wt 82.6 kg (182 lb) SpO2 96% BMI 32.24 kg/m?? Physical exam: GENERAL EXAM Appearance - well developed, well nourished Orientation - alert and oriented x 3 Eyes - anicteric Ears, mouth and nose: Normal Neurologic: Non-focal motor function Pulmonary: Non-labored breathing, no audible wheezing Integumentary: No rashes Musculoskeletal: No gross bony deformities Abdomen -- Soft nontender, nondistended, no masses. Midline incision is well healed with the small reducible hernia. Left lower quadrant colostomy is pink viable and functioning. It is below the skinbut not retracted. There is some PEH at the mucocutaneous junction. This was treated with silver nitrate Assessment: La Chung is a 69 y.o. female with colostomy with complication Plan: She will treat this with silver nitrate at home on a p.r.n. basis. She will maintain contact with Darling Blevins our enterostomal therapist Return to clinic p.r.n. 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
--- OUTSIDE RECORDS SUMMARY | 2024-06-25 22:32 | XMS_ITS | Encounter Summary ---
Author Organization [facility] Address [address] [place] [address] Phone Care Team Providers Care Information Technology Security Analyst Name Role Phone Julio César Briseno MD Primary Care Provider [phone] Eren Cr MD Unavailable [phone] Yohana Bowen MD Unavailable Reason for Visit * Episode Based Medications (Routine) - Authorized Specialty Diagnoses / Procedures Referred By Evelyne t Referred To Contact Oncology Diagnoses Neuroendocrine carcinoma (HCC) Malignant neoplasm metastatic to liver (HCC) Procedures [place] OCTREOTIDE INJECTION, DEPOT Octreotide 28 Day Cycles - Carcinoid Eren Cr MD [address] [facility] [address] [place] [address] Phone: tel: fax: [facility] [address] [address] Phone: tel: fax: Referral ID Status Reason Start Date Expiration Date V isits Requested Visits Authorized [id number] Authorized 11/28/2017 02/05/2025 1 150 Encounter Details Date Type Department Care Team (Late st Contact Info) Description 03/15/2020 3:45 PM CDT Infusion [facility] Oncology [address] [place] [address] [place] [address] Neuroendocrine carcinoma (CMS/HCC) (Primary Dx); 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) Social History Tobacco Use Types Packs/Day Years Used Date Smoking Tobacco: Never Smokeless Tobacco: Never Alcohol Use Standard Drinks/Week Comments Yes 1 (1 standard drink = 0.6 oz pur e alcohol) Comments No Sex and Gender Information Value Date Recorded Sex Assigned at Not on file 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 Gender Identity Not on file Sexual Orientation Straight 02/19/2021 9: 29 AM CDT Occupation Industry Job Start Date Job End Date retired Not on file Not on file Not on file documented as of this encounter Last Filed Vital Signs Vital Sign Reading Time Taken Comments Blood Pressure 153/81 03/15/2020 3:32 PM CDT Pulse 89 03/15/2020 3:32 PM CDT Temperature 36.3 ??C (97.3 ??F) 03/15/2020 3:32 PM CD T Respiratory Rate 18 03/15/2020 3:32 PM CDT Oxygen Saturation 96% 03/15/2020 3:32 PM CDT Inhaled Oxygen Concentration - - Weight 82.6 kg (182 lb 3.2 oz) 03/15/2020 3:32 P M CDT Height - - Body Mass Index 32.28 01/13/2020 3:04 PM CDT documented in this encounter Nursing Notes * Susana Roman RN - 03/15/2020 3:45 PM CDT Patient tolerated injection well. Patient has return appointments. Discharged home ambulatory with no questions or concerns. documented in this encounter Plan [...] 30 mg 30 mg, intramuscular, Once, On Sat03/15/20 at 1600, For 1 dose, Refrigerate. For IM intragluteal administration only- alternate gluteal sites. 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),Neuroendocrine carcinoma (HCC) Given 03/15/2020 3:38 PM CDT 30 mg Right Dorsogluteal/Butt ock documented in this encounter Orders Medications Ordered That Brett ht Not Have Been Administered Count Last Ordered Date First Ordered Date octreotide LAR (SandoSTATIN LAR) extended release intramuscular injection 30 mg 1 03/15/2020 Appointment Requests Count Last Ordered Date Fi rst Ordered Date ONCBCN INJECTION APPOINTMENT REQUEST 1 02/2020 documented in this encounter Care Teams Information Technology Security Analyst Relationship Specialty Start Date End Date Julio César Briseno MD PCP - General 10/01/16 Eren Cr MD Referring Physician Medical Oncology 11/25/18 Yohana Bowen MD Radiation Oncologist Radiation Oncology 11/25/18 documented as of this encounter
--- OUTSIDE RECORDS SUMMARY | 2024-06-25 22:32 | XMS_ITS | Encounter Summary ---
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) Procedures [place] OCTREOTIDE INJECTION, DEPOT Octreotide 28 Day Cycles - Carcinoid Eren Cr MD [address] [place] [address] Phone: tel: fax: [facility] [address] [address] Phone: tel: fax: Referral ID Status Reason Start Date Expiration Date V isits Requested Visits Authorized [id number] Authorized 11/28/2017 02/05/2025 1 150 Encounter Details Date Type Department Care Team (Late st Contact Info) Description 11/23/2019 2:45 PM CDT Lab [facility] Oncology [address] [place] [address] [place] [address] [place] [id number] Neuroendocrine carcinoma (CMS/HCC); Malignant neoplasm metastatic to liver (CMS/HCC) Social History Tobacco Use Types Packs/Day Years Used Date Smoking Tobacco: Never Smokeless Tobacco: Never Alcohol Use Standard Drinks/Week Comments Yes 1 (1 standard drink = 0.6 oz pur e alcohol) Comments No Sex and Gender Information Value Date Recorded Sex Assigned at Not on file 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 Gender Identity Not on file Sexual Orientation Straight 02/19/2021 9: 29 AM CDT Occupation Industry Job Start Date Job End Date retired Not on file Not on file Not on file documented as of this encounter Plan of Treatment Not on file documented as of this encounter Procedures Procedure Name Priority Date/Time Associated Diagnosis Comments DIFFERENTIAL AUTO Routine 11/23/2019 3:1 0 PM CDT Neuroendocrine carcinoma (CMS/HCC) Malignant neoplasm metastatic to liver (CMS/HCC) CBC WITH AUTO DIFFERENTIAL Routine 11/23/2019 3:10 PM CDT Neuroendocrine carcinoma (CMS/HCC) Malignant neoplasm metastatic to liver (CMS/HCC) COMPREHENSIVE METABOLIC PANEL Routine 11/23/2019 3:10 PM CDT Neuroendocrine carcinoma (CMS/HCC) Malignant neoplasm metastatic to liver (CMS/HCC) CHROMOGRANIN A Routine 11/23/2019 3:10 PM CDT Neuroendocrine carcinoma (CMS/HCC) Malignant neoplasm metastatic to liver (CMS/HCC) documented in this encounter Results * (ABNORMAL) Differential, auto (11/23/2019 3:10 PM CDT) Neutrophil abs 3.1 1.8 - 6.6 K/cumm JASON BLACK Comment:Testing performed by : [facility], [address] [place] [phone] Lymphocyte abs 0.3(L) 1.2 - 3.3 K/cumm JASON BLACK Comment:Testing performed by : [facility], [address] [place] [phone] Monocyte abs 0.4 0.2 - 1.2 K/cumm CERNER BJ Comment:Testing performed by : [facility], [address] [place] [phone] Eosinophil abs 0.1 0.0 - 0.5 K/cumm CERNER BJ Comment:Testing performed by : [facility], [address] [place] [phone] Basophil abs 0.0 0.0 - 0.2 K/cumm CERMINNIE BJ Comment:Testing performed by : [facility], [address] [place] [phone] Neutrophil pct 78.9 % CERNER BJ Comment: Interpretive Data Percent cell count reference ranges are not reported, since discordance with absolute values may lead to misinterpretation of CBC data. Current Interpretive Data was last revised on 2017. Testing performed by: [facility], [address] [place] [phone] Lymphocyte pct 8.5 % CERNER BJ Comment: Interpretive Data Percent cell count reference ranges are not reported, since discordance with absolute values may lead to misinterpretation of CBC data. Current Interpretive Data was last revised on 2017. Testing performed by: [facility], [address] [place] [phone] Monocyte pct 10.7 % CERNER BJ Comment:Testing performed by : [facility], [address] [place] [phone] Eosinophil pct 1.5 % CERNER BJ Comment:Testing performed by : [facility], [address] [place] [phone] Basophil pct 0.4 % CERNER BJ Comment:Testing performed by : [facility], [address] [place] [phone] Blood specimen (specimen) 11/23/2019 3:10 PM CDT 11/23/2019 3:12 PM CDT us Sabrina Willard NP LAB BLOOD ORDERABLES Final R esult JASON [facility] [address] [facility] [address] [place] [address] * (ABNORMAL) CBC with auto differential (11/23/2019 3:10 PM CDT) WBC 3.9 3.8 - 9.8 K/cumm CERNER BJ Comment:Testing performed by : [facility], [address] [place], [place] [phone] Hgb 12.4 12.1 - 15.1 g/dL CERNER BJ Comment:Testing performed by : [facility], [address] [place], [place] [phone] Hct 34.9(L) 36.1 - 44.3 % CERNER BJ Comment:Testing performed by : [place] [address] Plt 99(L) 140 - 440 K/cumm CERNER BJ Comment:Testing performed by : [address] [address] MPV 7.5 6.8 - 10.4 fL CERNER BJ Comment:Testing performed by : [facility], [address] [place], [place] [phone] RBC 3.69(L) 3.90 - 5.00 M/cumm CERNER BJ Comment:Testing performed by : [place] [phone] MCV 94.4 80.0 - 97.6 fL CERNER BJ Comment:Testing performed by : [address] [address] MCH 33.5 26.7 - 33.7 pg CERNER BJ Comment:Testing performed by : [facility], [address] [place] [phone] MCHC 35.5 32.7 - 35.5 g/dL CERNER BJ Comment:Testing performed by : [place] [phone] RDW CV 13.4 11.8 - 14.6 % CERNER BJ Comment:Testing performed by : [address] [address] NRBC abs 0.01 0.00 - 0.01 K/cumm CERNER BJ Comment:Testing performed by : [facility], [address] [place] [phone] Blood specimen (specimen) 11/23/2019 3:10 PM CDT 11/23/2019 3:12 PM CDT Sabrina Willard NP LAB BLOOD ORDERABLES Final R esult [facility] [address] [facility] [place] [address] * (ABNORMAL) Comprehensive metabolic panel (11/23/2019 3:10 PM CDT) Sodium 139 135 - 145 mmol/L JASON BLACK Comment:Testing performed by : [facility], [address] [place] [phone] Potassium, pl 3.5 3.3 - 4.9 mmol/L JASON BLACK Comment:Testing performed by : [facility], [address] [place] [phone] Chloride 103 97 - 110 mmol/L JASON BLACK Comment:Testing performed by : [address] [address] CO2 27 22 - 32 mmol/L JASON BLACK Comment:Testing performed by : [facility], [address] [place] [address] Anion gap 9 2 - 15 mmol/L JASON BLACK Comment:Testing performed by : [address] [address] BUN 13 8 - 25 mg/dL JASON BLACK Comment:Testing performed by : [address] [address] Creatinine 0.75 0.60 - 1.10 mg/dL JASON BLACK Comment:Testing performed by : [address] [address] Glucose 138 70 - 199 mg/dL JASON BLACK Comment: [...] 2017. Testing performed by: [facility], [address] [place] [phone] Calcium 9.8 8.5 - 10.3 mg/dL [facility]NIE [facility] Comment:Testing performed by : [facility], [address] [place] [phone] Bilirubin, total 0.5 0.1 - 1.2 mg/dL [facility]NIE [facility] Comment:Testing performed by : [facility], [address] [place] [phone] Protein, pl 6.3(L) 6.5 - 8.5 g/dL CERNER [facility] Comment:Testing performed by : [facility], [address] [place] [phone] Albumin 4.2 3.5 - 5.0 g/dL CERNER [facility] Comment:Testing performed by : [address] [address] Alk phos 91 40 - 130 Units/L [facility] Comment:Testing performed by : [address] [phone] ALT 16 7 - 45 Units/L [facility] Comment:Testing performed by : [facility], [address] [place] [phone] AST 20 10 - 45 Units/L [facility] Comment:Testing performed by : [facility], [address] [place] [phone] Blood specimen (specimen) 11/23/2019 3:10 PM CDT 11/23/2019 3:12 PM CDT us Sabrina Willard NP LAB BLOOD ORDERABLES Final R esult [facility] [address] [facility] [address] Department of Laboratories [place] [phone] * (ABNORMAL) Chromogranin A (11/23/2019 3:10 PM CDT) Chromogranin A 213(H) <93 ng/mL JASON BLACK Comment: Impaired renal [...] absence of malignant disease. Test Performed by: [place] [address] Flour Mixer Helper: Immanuel Novak M.D. Ph.D.; CLIA# [id number] Blood specimen (specimen) 11/23/2019 3:10 PM CDT 11/23/2019 5:06 PM CDT us Sabrina Willard VETERINARY ATTENDANT LAB BLOOD ORDERABLES Final R esult JASON BLACK [address] [facility] [place] [address] documented in this encounter Visit Diagnoses Diagnosis Neuroendocrine carcinoma (HCC) Other malignant neoplasm of unspecified site Malignant neoplasm metastatic to liver (HCC) documented in this encounter Orders Appointment Requests Count Last Ordered Date Fi rst Ordered Date ONCBCN LAB APPOINTMENT 1 11/23/2019 documented in this encounter Care Teams Heart Coordinator Relationship Specialty Start Date End Date Julio César Briseno MD PCP - General 10/01/16 Eren Cr MD Referring Physician Medical Oncology 11/25/18 Yohana Bowen MD Radiation Oncologist Radiation Oncology 11/25/18 documented as of this encounter
--- OUTSIDE RECORDS SUMMARY | 2024-06-25 22:32 | XMS_ITS | Encounter Summary ---
Author Organization [facility] Address [address] [place] [address] Phone Care Team Providers Care Gear Lapper Name Role Phone Jluio César Briseno MD Primary Care Provider Eren Cr MD Unavailable [phone] Yohana Bowen MD Unavailable Reason for Visit * Reason Onset Date Comments Lab Results 11/25/2019 Encounter Details Date Type Department Care Team (Late st Contact Info) Description 11/25/2019 Telephone [facility] Oncology [address] [place] [address] Eren Cr MD [address] [place], [place] [id number] Lab Results Social History Tobacco Use Types Packs/Day Years Used Date Smoking Tobacco: Never Smokeless Tobacco: Never Alcohol Use Standard Drinks/Week Comments Yes 1 (1 standard drink = 0.6 oz pur e alcohol) Comments No Sex and Gender Information Value Date Recorded Sex Assigned at Not on file 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 Patient thankful for call. documented in this encounter Plan of Treatment Not on file documented as of this encounter Visit Diagnoses Not on filedocumented in this encounter Care Teams Gear Lapper Relationship Specialty Start Date End Date Julio César Briseno MD PCP - General 10/01/16 Eren Cr MD Referring Physician Medical Oncology 11/25/18 Yohana Bowen MD Radiation Oncologist Radiation Oncology 11/25/18 documented as of this encounter
--- OUTSIDE RECORDS SUMMARY | 2024-06-25 22:32 | XMS_ITS | Encounter Summary ---
Author Organization [facility] Address [address] [place] [address] Care Team Providers Care Director Speech Language Name Role Phone Julio César Briseno MD Primary Care Provider [phone] Eren Cr MD Unavailable [phone] Yohana Bowen MD Unavailable Reason for Referral * Diagnostic Imaging (Routine) - Closed Specialty Diagnoses / Procedures Referred By Contac t Referred To Contact Radiology Diagnoses Neuro-endocrine carcinoma (HCC) Neuroendocrine carcinoma (HCC) Malignant neoplasm metastatic to liver (HCC) Procedures CT Chest Abdomen Pelvis W Contrast Yohana Bowen MD [address] [id number] [place] [address] Phone: tel: fax: [address] [address] Referral ID Status Reason Start Date Expiration Date Visits Re quested Visits Authorized [id number] Closed 02/05/2020 03/06/2021 1 1 Encounter Details Date Type Department Care Team (Late st Contact Info) Description 02/05/2020 Orders Only [facility] Radiation Oncology [facility] [place] [address] Kanchan Ruff CMA Neuro-endocrine carcinoma (CMS/HCC) (Primary Dx); Neuroendocrine carcinoma (CMS/HCC); Malignant [...] file 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 Yohana Bowen MD IMG CT PROCEDURES [...] documented in this encounter Care Teams Director Speech Language Relationship Specialty Start Date End Date Julio César Briseno MD PCP - General 10/01/16 Eren Cr MD Referring Physician Medical Oncology 11/25/18 Yohana Bowen MD Radiation Oncologist Radiation Oncology 11/25/18 documented as of this encounter
--- OUTSIDE RECORDS SUMMARY | 2024-06-25 22:32 | XMS_ITS | Encounter Summary ---
Author Organization [facility] Address [address] [place] [address] Phone Care Team Providers Care Court Commissioner Name Role Phone Julio César Briseno MD Primary Care Provider [phone] Eren Cr MD Unavailable [phone] Yohana oBwen MD Unavailable Encounter Details Date Type Department Care Team (Late st Contact Info) Description 10/28/2019 Telephone [facility] Oncology [address] [facility] 7th [place] [address] [place] [id number] Sabrina Willard, PHLEBOTOMY TECHNOLOGIST [address] [place] [address] Social History Tobacco Use Types Packs/Day Years Used Date Smoking Tobacco: Never Smokeless Tobacco: Never Alcohol Use Standard Drinks/Week Comments Yes 1 (1 standard drink = 0.6 oz pur e alcohol) Comments No Sex and Gender Information Value Date Recorded Sex Assigned at Not on file 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 She met with Dr. Bowen via telemedicine yesterday and reviewed CT scan noting mixedresponse. Chromogranin A pending She has been off PPI for 2 months now and doing well with no refulx (so last month's value and the pending October lab are off PPI). She has no issues to report today. Discussed f/u in Dr. Cr's office after next PET 01/24. She will continue monthly lab work and Octreot shaq LAR for now. She will call with any issues if needed and was agreeable. documented in this encounter Plan of Treatment Not on file documented as of this encounter Results * (ABNORMAL) Comprehensive metabolic panel (02/15/2020 2:05 PM CDT) Sodium 141 135 - 145 mmol/L [facility]ER [facility] Comment:Testing performed by : [facility], [address] [place] [phone] Potassium, pl 4.0 3.3 - 4.9 mmol/L CERNER BJ Comment:Testing performed by : [facility], [address] [place] [phone] Chloride 105 97 - 110 mmol/L CERNER BJ Comment:Testing performed by : [facility], [address] [place] [phone] CO2 29 22 - 32 mmol/L [facility] Comment:Testing performed by : [facility], [address] [place] [phone] Anion gap 7 2 - 15 mmol/L [facility] Comment:Testing performed by : [facility], [address] [place] [phone] BUN 12 8 - 25 mg/dL [facility]ERMINNIE [facility] Comment:Testing performed by : [facility], [address] [place] [phone] Creatinine 0.85 0.60 - 1.10 mg/dL CERNER BJ Comment:Testing performed by : [address] [address] Glucose 123 70 - 199 mg/dL CERNER [...] was last revised 2017. Testing performed by: [place] [phone] Calcium 10.9(H) 8.5 - 10.3 mg/dL CERNER BJ Comment:Testing performed by : [address] [address] Bilirubin, total 0.4 0.1 - 1.2 mg/dL CERNER BJ Comment:Testing performed by : [address] [address] Protein, pl 6.6 6.5 - 8.5 g/dL CERNER [facility]J Comment:Testing performed by : [address] [address] Albumin 4.4 3.5 - 5.0 g/dL CERNER BJ Comment:Testing performed by : [address] [address] Alk phos 87 40 - 130 Units/L CERNER BJ Comment:Testing performed by : [place] [phone] ALT 13 7 - 45 Units/L CERNER BJ Comment:Testing performed by : [address] [address] AST 19 10 - 45 Units/L CERNER BJ Comment:Testing performed by : [facility], [address] [place] [phone] Blood specimen (specimen) 02/15/2020 2:05 PM CDT 02/15/2020 2:11 PM CDT Sabrina Willard NP LAB BLOOD ORDERABLES Final R esult [facility] [place] [address] * (ABNORMAL) CBC with auto differential (02/15/2020 2:05 PM CDT) WBC 4.0 3.8 - 9.8 K/cumm JASON BLACK Comment:Testing performed by : [address] [address] Hgb 12.1 12.1 - 15.1 g/dL J[facility]ON BLACK Comment:Testing performed by : [facility], [address] [place] [address] Hct 35.2(L) 36.1 - 44.3 % J[facility]ON BLACK Comment:Testing performed by : [address] [address] Plt 117(L) 140 - 440 K/cumm JASON BLACK Comment:Testing performed by : [address] [address] MPV 7.3 6.8 - 10.4 fL J[facility]ON BLACK Comment:Testing performed by : [facility], [address] [place] [phone] RBC 3.75(L) 3.90 - 5.00 M/cumm J[facility]ON BLACK Comment:Testing performed by : [address] [address] MCV 93.9 80.0 - 97.6 fL J[facility]ON BLACK Comment:Testing performed by : [address] [address] MCH 32.3 26.7 - 33.7 pg JASON BLACK Comment:Testing performed by : [facility], [address] [facility] [address] MCHC 34.4 32.7 - 35.5 g/dL J[facility]ON [facility] Comment:Testing performed by : [facility], [address] [place] [address] RDW CV 12.8 11.8 - 14.6 % J[facility]ON [facility] Comment:Testing performed by : [facility], [address] [place] [phone] NRBC abs 0.00 0.00 - 0.01 K/cumm J[facility]ON [facility] Comment:Testing performed by : [facility], [address] [place] [phone] Blood specimen (specimen) 02/15/2020 2:05 PM CDT 02/15/2020 2:11 PM CDT Sabrina Willard NP LAB BLOOD ORDERABLES Final R esult [facility] [place] [address] * (ABNORMAL) Chromogranin A (02/15/2020 12:05 PM CDT) Chromogranin A 249(H) <93 ng/mL [facility] Comment: Impaired renal or hepatic function or treatment with proton pump inhibitors may result in artifactual elevations of Chromogranin A. ADDITIONAL INFORMATION This test was developed and its performance characteristics determined by [facility] in a manner consistent with CLIA [...] malignant disease. Test Performed by: [facility] [address] [place] [address] [employer] Professor: Immanuel Novak M.D. Ph.D.; IA# [id number] Blood specimen (specimen) 02/15/2020 12:05 PM CDT 02/15/2020 2:22 PM CDT Sabrina Willard NP LAB BLOOD ORDERABLES Final R esult [facility] [place] [address] * (ABNORMAL) Comprehensive metabolic panel (12/21/2019 1:40 PM CDT) Sodium 140 135 - 145 mmol/L J[facility]ON [facility] Comment:Testing performed by : [facility], [address] [place] [phone] Potassium, pl 4.7 3.3 - 4.9 mmol/L J[facility]ON [facility] Comment:Testing performed by : [facility], [address] [place] [phone] Chloride 105 97 - 110 mmol/L J[facility]ON [facility] Comment:Testing performed by : [address] [address] CO2 28 22 - 32 mmol/L [facility]ON [facility] Comment:Testing performed by : [facility], [address] [place] [phone] Anion gap 7 2 - 15 mmol/L [facility]ON [facility] Comment:Testing performed by : [address] [address] BUN 16 8 - 25 mg/dL [facility]ON [facility] Comment:Testing performed by : [address] [address] Creatinine 0.82 0.60 - 1.10 mg/dL J[facility]ON [facility] Comment:Testing performed by : [address] [address] Glucose 124 70 - 199 mg/dL J[facility] Comment: Interpretive Data Fasting glucose [...] last revised 2017. Testing performed by: [facility], [address] [place] [phone] Calcium 10.9(H) 8.5 - 10.3 mg/dL CERNER [facility] Comment:Testing performed by : [facility], [address] [place] [address] Bilirubin, total 0.5 0.1 - 1.2 mg/dL CERNER BJ Comment:Testing performed by : [facility], [address] [place] [phone] Protein, pl 7.0 6.5 - 8.5 g/dL C[facility]ER BJ Comment:Testing performed by : [facility], [address] [place] [phone] Albumin 4.6 3.5 - 5.0 g/dL CERNER BJ Comment:Testing performed by : [address] [address] Alk phos 88 40 - 130 Units/L CERMINNIE BJ Comment:Testing performed by : [address] [address] ALT 15 7 - 45 Units/L CERMINNIE BJ Comment:Testing performed by : [facility], [address] [place] [phone] AST 20 10 - 45 Units/L CERNER [facility]J Comment:Testing performed by : [facility], [address] [place] [phone] Blood specimen (specimen) 12/21/2019 1:40 PM CDT 12/21/2019 1:41 PM CDT us Sabrina Willard NP LAB BLOOD ORDERABLES Final [facility]ult [facility] [place] [address] * (ABNORMAL) CBC with auto differential (12/21/2019 1:40 PM CDT) WBC 4.8 3.8 - 9.8 K/cumm CERNER BJ Comment:Testing performed by : [facility], [address] [place], [place] [phone] Hgb 12.7 12.1 - 15.1 g/dL CERNER BJ Comment:Testing performed by : [facility], [address] [place], [place] [phone] Hct 36.6 36.1 - 44.3 % CERNER BJ Comment:Testing performed by : [place] [phone] Plt 114(L) 140 - 440 K/cumm CERNER BJ Comment:Testing performed by : [place] [phone] MPV 7.5 6.8 - 10.4 fL C[facility]ER [facility]J Comment:Testing performed by : [facility], [address] [place], [place] [phone] RBC 3.84(L) 3.90 - 5.00 M/cumm CERNER BJ Comment:Testing performed by : [place] [phone] MCV 95.2 80.0 - 97.6 fL CERNER BJ Comment:Testing performed by : [place] [phone] MCH 33.0 26.7 - 33.7 pg CERNER BJ Comment:Testing performed by : [place] [phone] MCHC 34.6 32.7 - 35.5 g/dL CERNER BJ Comment:Testing performed by : [place] [phone] RDW CV 12.9 11.8 - 14.6 % CERNER BJ Comment:Testing performed by : [place] [phone] NRBC abs 0.00 0.00 - 0.01 K/cumm CERNER BJ Comment:Testing performed by : [facility], [address] [place] [phone] Blood specimen (specimen) 12/21/2019 1:40 PM CDT 12/21/2019 1:41 PM CDT Sabrina Willard NP LAB BLOOD ORDERABLES Final R esult Performing Organization Address [facility] de Phone Number [facility] [place] [address] * (ABNORMAL) Chromogranin A (12/21/2019 1:39 PM CDT) Chromogranin A 238(H) <93 ng/mL J[facility]ON [facility] Comment: Impaired renal or hepatic function or treatment with proton pump inhibitors may result in artifactual elevations of Chromogranin A. ADDITIONAL INFORMATION This test was developed and its performance characteristics determined by [facility] in a manner consistent with CLIA [...] absence of malignant disease. Test Performed by: [address] [address] [employer] Professor: Immanuel Novak M.D. Ph.D.; CLIA# [id number] Blood specimen (specimen) 12/21/2019 1:39 PM CDT 12/21/2019 2:23 PM CDT Sabrina Willard NP LAB BLOOD ORDERABLES Final R esult Performing Organization Address [facility] Co de Phone Number [facility] [place] [address] * (ABNORMAL) Comprehensive metabolic panel (11/23/2019 3:10 PM CDT) Sodium 139 135 - 145 mmol/L CERNER BJ Comment:Testing performed by : [facility], [address] [place] [phone] Potassium, pl 3.5 3.3 - 4.9 mmol/L CERNER BJ Comment:Testing performed by : [facility], [address] [place] [phone] Chloride 103 97 - 110 mmol/L C[facility]ER BJ Comment:Testing performed by : [facility], [address] [place] [phone] CO2 27 22 - 32 mmol/L C[facility]ER BJ Comment:Testing performed by : [facility], [address] [place] [phone] Anion gap 9 2 - 15 mmol/L C[facility]ER [facility]J Comment:Testing performed by : [facility], [address] [place] [phone] BUN 13 8 - 25 mg/dL C[facility]ER BJ Comment:Testing performed by : [facility], [address] [place] [phone] Creatinine 0.75 0.60 - 1.10 mg/dL C[facility]ER [facility]J Comment:Testing performed by : [facility], [address] [place] [phone] Glucose 138 70 - 199 mg/dL CERNER BJ Comment: [...] last revised 2017. Testing performed by: [facility], [address] [place] [phone] Calcium 9.8 8.5 - 10.3 mg/dL C[facility]ER [facility]J Comment:Testing performed by : [facility], [address] [place] [phone] Bilirubin, total 0.5 0.1 - 1.2 mg/dL JASON BLACK Comment:Testing performed by : [facility], [address] [place] [phone] Protein, pl 6.3(L) 6.5 - 8.5 g/dL J[facility]ON BLACK Comment:Testing performed by : [facility], [address] [place] [phone] Albumin 4.2 3.5 - 5.0 g/dL J[facility]ON BLACK Comment:Testing performed by : [facility], [address] [place] [phone] Alk phos 91 40 - 130 Units/L J[facility]ON BLACK Comment:Testing performed by : [address] [address] ALT 16 7 - 45 Units/L J[facility]ON BLACK Comment:Testing performed by : [facility], [address] [place] [phone] AST 20 10 - 45 Units/L J[facility]ON BLACK Comment:Testing performed by : [facility], [address] [place] [phone] Blood specimen (specimen) 11/23/2019 3:10 PM CDT 11/23/2019 3:12 PM CDT Sabrina Willard NP LAB BLOOD ORDERABLES Final R esult Performing Organization Address City/State/[facility] Co de Phone Number JASON [facility] Department of Laboratories [place], [place] [id number] * (ABNORMAL) CBC with auto differential (11/23/2019 3:10 PM CDT) WBC 3.9 3.8 - 9.8 K/cumm JASON BLACK Comment:Testing performed by : [address] [address] Hgb 12.4 12.1 - 15.1 g/dL JASON BLACK Comment:Testing performed by : [facility], [address] [place], [place] [phone] Hct 34.9(L) 36.1 - 44.3 % CERNER BJ Comment:Testing performed by : [facility], [address] [place] [address] Plt 99(L) 140 - 440 K/cumm CERNER BJ Comment:Testing performed by : [facility], [address] [place], [place] [phone] MPV 7.5 6.8 - 10.4 fL CERNER BJ Comment:Testing performed by : [facility], [address] [place], [place] [id number] RBC 3.69(L) 3.90 - 5.00 M/cumm CERNER BJ Comment:Testing performed by : [facility], [address] [place], [place] [phone] MCV 94.4 80.0 - 97.6 fL CERNER BJ Comment:Testing performed by : [place] [phone] MCH 33.5 26.7 - 33.7 pg CERNER BJ Comment:Testing performed by : [facility], [address] [place], [place] [id number] MCHC 35.5 32.7 - 35.5 g/dL C[facility]ER BJ Comment:Testing performed by : [facility], [address] [place], [place] [id number] RDW CV 13.4 11.8 - 14.6 % CERNER BJ Comment:Testing performed by : [place] [phone] NRBC abs 0.01 0.00 - 0.01 K/cumm CERNER BJ Comment:Testing performed by : [facility], [address] [place] [phone] Blood specimen (specimen) 11/23/2019 3:10 PM CDT 11/23/2019 3:12 PM CDT Sabrina Willard NP LAB BLOOD ORDERABLES Final R esult [facility] [place] [address] * (ABNORMAL) Chromogranin A (11/23/2019 3:10 PM CDT) Chromogranin A 213(H) <93 ng/mL J[facility]ON BLACK Comment: Impaired renal or hepatic function or treatment with proton pump inhibitors may result in artifactual elevations of Chromogranin A. ADDITIONAL INFORMATION This test was developed and its performance characteristics determined by [facility] in a manner consistent with CLIA [...] of malignant disease. Test Performed by: [facility] [address] [place] [address] [employer] Professor: Immanuel Novak M.D. 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 (HCC)- Primary Neuroendocrine carcinoma (HCC) Other malignant neoplasm of unspecified site documented in this encounter Orders Appointment Requests Count Last Ordered Date Fi rst Ordered Date ONCBCN CLINIC APPOINTMENT REQUEST 1 020 ONCBCN INJECTION APPOINTMENT REQUEST 3 02/0511/23/2019 ONCBCN LAB APPOINTMENT 3 02/15/202011/22 documented in this encounter Care Teams Court Commissioner Relationship Specialty Start Date End Date Julio César Briseno MD PCP - General 10/01/16 Eren Cr MD Referring Physician Medical Oncology 11/25/18 Yohana Bowen MD Radiation Oncologist Radiation Oncology 11/25/18 documented as of this encounter
--- OUTSIDE RECORDS SUMMARY | 2024-06-25 22:32 | XMS_ITS | Encounter Summary ---
Author Organization [facility] Address [address] [place] [address] Phone Care Team Providers Care Music Rehabilitation Therapist Name Role Phone Julio César Briseno MD Primary Care Provider [phone] Eren Cr MD Unavailable [phone] Yohana Bowen MD Unavailable Reason for Visit * Episode Based Medications (Routine) - Authorized Specialty Diagnoses / Procedures Referred By Evelyne t Referred To Contact Oncology Diagnoses Neuroendocrine carcinoma (HCC) Malignant neoplasm metastatic to liver (HCC) Procedures [place] OCTREOTIDE INJECTION, DEPOT Octreotide 28 Day Cycles - Carcinoid Eren Cr MD [address] [place] [address] Phone: tel: fax: [facility] Cancer [address] [address] Phone: tel: fax: Referral ID Status Reason Start Date Expiration Date V isits Requested Visits Authorized [id number] Authorized 11/28/2017 02/05/2025 1 150 Encounter Details Date Type Department Care Team (Late st Contact Info) Description 12/21/2019 2:45 PM CDT Lab 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 Gender Identity Not on file Sexual Orientation Straight 02/19/2021 9: 29 AM CDT Occupation Industry Job Start Date Job End Date retired Not on file Not on file Not on file documented as of this encounter Plan of Treatment Not on file documented as of this encounter Procedures Procedure Name Priority Date/Time Associated Diagnosis Comments DIFFERENTIAL AUTO Routine 12/21/2019 1:4 0 PM CDT Neuroendocrine carcinoma (CMS/HCC) Malignant neoplasm metastatic to liver (CMS/HCC) CBC WITH AUTO DIFFERENTIAL Routine 12/21/2019 1:40 PM CDT Neuroendocrine carcinoma (CMS/HCC) Malignant neoplasm metastatic to liver (CMS/HCC) COMPREHENSIVE METABOLIC PANEL Routine 12/21/2019 1:40 PM CDT Neuroendocrine carcinoma (CMS/HCC) Malignant neoplasm metastatic to liver (CMS/HCC) CHROMOGRANIN A Routine 12/21/2019 1:39 PM CDT Neuroendocrine carcinoma (CMS/HCC) Malignant neoplasm metastatic to liver (CMS/HCC) documented in this encounter Results * (ABNORMAL) Differential, auto (12/21/2019 1:40 PM CDT) Neutrophil abs 3.6 1.8 - 6.6 K/cumm JASON BLACK Comment:Testing performed by : [facility], [address] [place] [phone] Lymphocyte abs 0.4(L) 1.2 - 3.3 K/cumm JASON BLACK Comment:Testing performed by : [facility], [address] [place] [phone] Monocyte abs 0.6 0.2 - 1.2 K/cumm CERNER BJ Comment:Testing performed by : [facility], [address] [place] [phone] Eosinophil abs 0.1 0.0 - 0.5 K/cumm CERMINNIE BJ Comment:Testing performed by : [facility], [address] [place] [phone] Basophil abs 0.0 0.0 - 0.2 K/cumm JASON BJ Comment:Testing performed by : [facility], [address] [place] [phone] Neutrophil pct 76.7 % CERNER BJ Comment: Interpretive Data Percent cell count reference ranges are not reported, since discordance with absolute values may lead to misinterpretation of CBC data. Current Interpretive Data was last revised on 2017. Testing performed by: [facility], [address] [place] [phone] Lymphocyte pct 8.4 % CERNER BJ Comment: Interpretive Data Percent cell count reference ranges are not reported, since discordance with absolute values may lead to misinterpretation of CBC data. Current Interpretive Data was last revised on 2017. Testing performed by: [facility], [address] [place] [phone] Monocyte pct 12.8 % CERNER BJ Comment:Testing performed by : [facility], [address] [place] [phone] Eosinophil pct 1.5 % CERNER BJ Comment:Testing performed by : [facility], [address] [place] [phone] Basophil pct 0.6 % CERNER BJ Comment:Testing performed by : [facility], [address] [place] [phone] Blood specimen (specimen) 12/21/2019 1:40 PM CDT 12/21/2019 1:41 PM CDT us Sabrina Willard NP LAB BLOOD ORDERABLES Final R esult J[facility]ON [facility] Department [place] [address] * (ABNORMAL) CBC with auto differential (12/21/2019 1:40 PM CDT) WBC 4.8 3.8 - 9.8 K/cumm CERNER BJ Comment:Testing performed by : [facility], [address] [place], [place] [phone] Hgb 12.7 12.1 - 15.1 g/dL CERNER BJ Comment:Testing performed by : [facility], [address] [place], [place] [phone] Hct 36.6 36.1 - 44.3 % CERNER BJ Comment:Testing performed by : [place] [phone] Plt 114(L) 140 - 440 K/cumm CERNER BJ Comment:Testing performed by : [place] [phone] MPV 7.5 6.8 - 10.4 fL CERNER BJ Comment:Testing performed by : [facility], [address] [place], [place] [phone] RBC 3.84(L) 3.90 - 5.00 M/cumm CERNER BJ Comment:Testing performed by : [place] [phone] MCV 95.2 80.0 - 97.6 fL CERNER BJ Comment:Testing performed by : [place] [phone] MCH 33.0 26.7 - 33.7 pg CERNER BJ Comment:Testing performed by : [facility], [address] [place], [place] [phone] MCHC 34.6 32.7 - 35.5 g/dL CERNER BJ Comment:Testing performed by : [place] [phone] RDW CV 12.9 11.8 - 14.6 % CERNER BJ Comment:Testing performed by : [place] [phone] NRBC abs 0.00 0.00 - 0.01 K/cumm C[facility]ER [facility] Comment:Testing performed by : [facility], [address] [place] [phone] Blood specimen (specimen) 12/21/2019 1:40 PM CDT 12/21/2019 1:41 PM CDT Sabrina Willard NP LAB BLOOD ORDERABLES Final R esult [facility] Department [place] [address] * (ABNORMAL) Comprehensive metabolic panel (12/21/2019 1:40 PM CDT) Sodium 140 135 - 145 mmol/L JASON [facility] Comment:Testing performed by : [facility], [address] [place] [phone] Potassium, pl 4.7 3.3 - 4.9 mmol/L JASON BLACK Comment:Testing performed by : [address] [address] Chloride 105 97 - 110 mmol/L [facility]ON [facility] Comment:Testing performed by : [address] [phone] CO2 28 22 - 32 mmol/L CERMINNIE [facility] Comment:Testing performed by : [address] [phone] Anion gap 7 2 - 15 mmol/L [facility]ON [facility] Comment:Testing performed by : [address] [phone] BUN 16 8 - 25 mg/dL [facility]ON [facility] Comment:Testing performed by : [address] [phone] Creatinine 0.82 0.60 - 1.10 mg/dL [facility]NO [facility] Comment:Testing performed by : [address] [phone] Glucose 124 70 - 199 mg/dL [facility] [...] was last revised 2017. Testing performed by: [facility], [address] [place] [phone] Calcium 10.9(H) 8.5 - 10.3 mg/dL CERNER [facility] Comment:Testing performed by : [facility], [address] [place] [phone] Bilirubin, total 0.5 0.1 - 1.2 mg/dL CERNER BJ Comment:Testing performed by : [facility], [address] [place] [phone] Protein, pl 7.0 6.5 - 8.5 g/dL CERNER BJ Comment:Testing performed by : [facility], [address] [place] [phone] Albumin 4.6 3.5 - 5.0 g/dL CERNER BJ Comment:Testing performed by : [facility], [address] [place] [phone] Alk phos 88 40 - 130 Units/L CERNER BJ Comment:Testing performed by : [facility], [address] [place] [phone] ALT 15 7 - 45 Units/L CERNER BJ Comment:Testing performed by : [facility], [address] [place] [phone] AST 20 10 - 45 Units/L [facility]ERNER [facility] Comment:Testing performed by : [facility], [address] [place] [phone] Blood specimen (specimen) 12/21/2019 1:40 PM CDT 12/21/2019 1:41 PM CDT us Sabrina Willard NP LAB BLOOD ORDERABLES Final R esult [facility] Department [place] [address] * (ABNORMAL) Chromogranin A (12/21/2019 1:39 PM CDT) Chromogranin A 238(H) <93 ng/mL JASON [facility] Comment: Impaired renal [...] Test Performed by: [facility] [address] [place] [address] Superintendent [employer]: Immanuel Novak M.D. Ph.D.; CLIA# [id number] Blood specimen (specimen) 12/21/2019 1:39 PM CDT 12/21/2019 2:23 PM CDT us Sabrina Willard REVENUE SETTLEMENTS 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 LAB BLOOD ORDERABLES Final R esult JASON BLACK [facility] Department [place] [address] documented in this encounter Visit Diagnoses Diagnosis Neuroendocrine carcinoma (HCC) Other malignant neoplasm of unspecified site Malignant neoplasm metastatic to liver (HCC) documented in this encounter Orders Appointment Requests Count Last Ordered Date Fi rst Ordered Date ONCBCN LAB APPOINTMENT 1 12/21/2019 documented in this encounter Care Teams Music Rehabilitation Therapist Relationship Specialty Start Date End Date Julio César Briseno MD PCP - General 10/01/16 Eren Cr MD Referring Physician Medical Oncology 11/25/18 Yohana Bowen MD Radiation Oncologist Radiation Oncology 11/25/18 documented as of this encounter
--- OUTSIDE RECORDS SUMMARY | 2024-06-25 22:32 | XMS_ITS | Encounter Summary ---
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) Procedures [place] OCTREOTIDE INJECTION, DEPOT Octreotide 28 Day Cycles - Carcinoid Eren Cr MD [address] [place] [address] Phone: tel: fax: [address] [address] Phone: tel: fax: Referral ID Status Reason Start Date Expiration Date V isits Requested Visits Authorized [id number] Authorized 11/28/2017 02/05/2025 1 150 Encounter Details Date Type Department Care Team (Latest Contact Info) Description 10/27/2019 11:30 AM CDT Clinical Support [facility] Oncology [address] [place] [address] [place] [phone] Neuroendocrine carcinoma (CMS/HCC); Malignant neoplasm metastatic to liver (CMS/HCC) Social History Tobacco Use Types Packs/Day Years Used Date Smoking Tobacco: Never Smokeless Tobacco: Never Alcohol Use Standard Drinks/Week Comments Yes 1 (1 standard drink = 0.6 oz pur e alcohol) Comments No Sex and Gender Information Value Date Recorded Sex Assigned at Not on file 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 Gender Identity Not on file Sexual [...] PM CDT documented as of this encounter Plan of Treatment Not on file documented as of this encounter Procedures Procedure Name Priority Date/Time Associated Diagnosis Comments DIFFERENTIAL AUTO Routine 10/27/2019 11: 19 AM CDT Neuroendocrine carcinoma (CMS/HCC) Malignant neoplasm metastatic to liver (CMS/HCC) CBC WITH AUTO DIFFERENTIAL Routine 10/27/2019 11:19 AM CDT Neuroendocrine carcinoma (CMS/HCC) Malignant neoplasm metastatic to liver (CMS/HCC) COMPREHENSIVE METABOLIC PANEL Routine 10/27/2019 11:19 AM CDT Neuroendocrine carcinoma (CMS/HCC) Malignant neoplasm metastatic to liver (CMS/HCC) CHROMOGRANIN A Routine 10/27/2019 11:19 AM CDT Neuroendocrine carcinoma (CMS/HCC) Malignant neoplasm metastatic to liver (CMS/HCC) documented in this encounter Results * (ABNORMAL) Differential, auto (10/27/2019 11:19 AM CDT) Neutrophil abs 3.9 1.8 - 6.6 K/cumm JASON [facility] Comment:Testing performed by : [facility], [address] [place] [phone] Lymphocyte abs 0.3(L) 1.2 - 3.3 K/cumm C[facility]ER [facility] Comment:Testing performed by : [facility], [address] [place] [phone] Monocyte abs 0.6 0.2 - 1.2 K/cumm [facility] Comment:Testing performed by : [facility], [address] [place] [address] Eosinophil abs 0.0 0.0 - 0.5 K/cumm [facility] Comment:Testing performed by : [facility], [address] [place] [address] Basophil abs 0.0 0.0 - 0.2 K/cumm [facility] Comment:Testing performed by : [facility], [address] [place] [phone] Neutrophil pct 79.7 % [facility] Comment: Interpretive Data Percent cell count reference ranges are not reported, since discordance with absolute values may lead to misinterpretation of CBC data. Current Interpretive Data was last revised on 2017. Testing performed by: [facility], [address] [place] [phone] Lymphocyte pct 7.0 % [facility] Comment: Interpretive Data Percent cell count reference ranges are not reported, since discordance with absolute values may lead to misinterpretation of CBC data. Current Interpretive Data was last revised on 2017. Testing performed by: [facility], [address] [place] [phone] Monocyte pct 11.9 % [facility] Comment:Testing performed by : [facility], [address] [place] [address] Eosinophil pct 0.9 % [facility] Comment:Testing performed by : [facility], [address] [place] [phone] Basophil pct 0.5 % [facility] Comment:Testing performed by : [facility], [address] [place] [phone] Blood specimen (specimen) 10/27/2019 11:19 AM CDT 10/27/2019 11:19 AM CDT Eren Cr MD LAB BLOOD ORDERABLES Final Re sult [facility] Department [place] [address] * (ABNORMAL) CBC with auto differential (10/27/2019 11:19 AM CDT) WBC 5.0 3.8 - 9.8 K/cumm CERMINNIE BJ Comment:Testing performed by : [facility], [address] [place] [phone] Hgb 12.7 12.1 - 15.1 g/dL JASON [facility] Comment:Testing performed by : [address] [address] Hct 36.4 36.1 - 44.3 % CERMINNIE BJ Comment:Testing performed by : [address] [address] Plt 106(L) 140 - 440 K/cumm JASON [facility] Comment:Testing performed by : [facility], [address] [place] [address] MPV 7.5 6.8 - 10.4 fL CERMINNIE [facility] Comment:Testing performed by : [address] [address] RBC 3.88(L) 3.90 - 5.00 M/cumm CERMINNIE BJ Comment:Testing performed by : [address] [address] MCV 93.8 80.0 - 97.6 fL CERMINNIE BJ Comment:Testing performed by : [facility], [address] [place] [address] MCH 32.7 26.7 - 33.7 pg CERMINNIE BJ Comment:Testing performed by : [address] [address] MCHC 34.9 32.7 - 35.5 g/dL JASON BJ Comment:Testing performed by : [address] [address] RDW CV 13.9 11.8 - 14.6 % CERMINNIE BJ Comment:Testing performed by : [facility], [address] [place] [address] NRBC abs 0.00 0.00 - 0.01 K/cumm JASON BLACK Comment:Testing performed by : [facility], [address] [place] [phone] Blood specimen (specimen) 10/27/2019 11:19 AM CDT 10/27/2019 11:19 AM CDT Eren Cr MD LAB BLOOD ORDERABLES Final Re sult JASON BLACK [facility] [place] [address] * Comprehensive metabolic panel (10/27/2019 11:19 AM CDT) Sodium 138 135 - 145 mmol/L JASON BLACK Comment:Testing performed by : [facility], [address] [place] [phone] Potassium, pl 4.6 3.3 - 4.9 mmol/L JASON BLACK Comment:Testing performed by : [facility], [address] [place] [address] Chloride 103 97 - 110 mmol/L JASON BLACK Comment:Testing performed by : [facility], [address] [place] [address] CO2 28 22 - 32 mmol/L JASON BLACK Comment:Testing performed by : [facility], [address] [place] [phone] Anion gap 7 2 - 15 mmol/L JASON BLACK Comment:Testing performed by : [facility], [address] [place] [address] BUN 15 8 - 25 mg/dL JASON BLACK Comment:Testing performed by : [facility], [address] [place] [phone] Creatinine 0.80 0.60 - 1.10 mg/dL JASON BLACK Comment:Testing performed by : [facility], [address] [place] [phone] Glucose 116 70 - 199 mg/dL JASON BLACK Comment: [...] was last revised 2017. Testing performed by: [facility], [address] [place] [address] Calcium 10.0 8.5 - 10.3 mg/dL CERNER BJ Comment:Testing performed by : [address] [address] Bilirubin, total 0.8 0.1 - 1.2 mg/dL CERNER BJ Comment:Testing performed by : [address] [address] Protein, pl 6.9 6.5 - 8.5 g/dL CERNER BJ Comment:Testing performed by : [address] [address] Albumin 4.4 3.5 - 5.0 g/dL CERNER BJ Comment:Testing performed by : [address] [address] Alk phos 80 40 - 130 Units/L CERNER [facility]J Comment:Testing performed by : [address] [address] ALT 14 7 - 45 Units/L CERNER BJ Comment:Testing performed by : [address] [address] AST 19 10 - 45 Units/L CERNER BJ Comment:Testing performed by : [address] [address] Blood specimen (specimen) 10/27/2019 11:19 AM CDT 10/27/2019 11:19 AM CDT us Eren Cr MD LAB BLOOD ORDERABLES Final Re sult Performing Organization Address [facility] de Phone Number [facility] [place] [address] * (ABNORMAL) Chromogranin A (10/27/2019 11:19 AM CDT) Chromogranin A 225(H) <93 ng/mL JASON [facility] Comment: Impaired renal or hepatic function or treatment with proton pump inhibitors may result in artifactual elevations of Chromogranin A. ADDITIONAL INFORMATION This test was developed and its performance characteristics determined by [facility] in a manner consistent with CLIA requirements. [...] absence of malignant disease. Test Performed by: [place] [address] Utilization Management Rn: Immanuel Novak M.D. Ph.D.; CLIA# [id number] Blood specimen (specimen) 10/27/2019 11:19 AM CDT 10/27/2019 1:28 PM CDT Eren Cr MD LAB BLOOD ORDERABLES Final Re sulgracie Performing Organization Address [facility] Co de Phone Number [facility] [place] [address] documented in this encounter Visit Diagnoses Diagnosis Neuroendocrine carcinoma (HCC) Other malignant neoplasm of unspecified site Malignant neoplasm metastatic to liver (HCC) documented in this encounter Orders Appointment Requests Count Last Ordered Date Fi rst Ordered Date ONCBCN LAB APPOINTMENT 1 10/27/2019 documented in this encounter Care Teams Heavy Equipment Operator Relationship Specialty Start Date End Date Julio César Briseno MD PCP - General 10/01/16 Eren Cr MD Referring Physician Medical Oncology 11/25/18 Yohana Bowen MD Radiation Oncologist Radiation Oncology 11/25/18 documented as of this encounter
--- OUTSIDE RECORDS SUMMARY | 2024-06-25 22:32 | XMS_ITS | Encounter Summary ---
Author Organization [facility] Address [address] [place] [address] Phone Care Team Providers Care Corporate Legal Intern Name Role Phone Julio César Briseno MD Primary Care Provider Eren Cr MD Unavailable [phone] Yohana Bowen MD Unavailable Encounter Details Date Type Department Care Team (Late st Contact Info) Description 11/02/2019 Telephone [facility] Oncology [address] [facility] Advanced [facility] 7th [place] [address] [place] [address] Sabrina Willard, WASH TUB MACHINE OPERATOR [address] [place] [address] Social History Tobacco Use Types Packs/Day Years Used Date Smoking Tobacco: Never Smokeless Tobacco: Never Alcohol Use Standard Drinks/Week Comments Yes 1 (1 standard drink = 0.6 oz pur e alcohol) Comments No Sex and Gender Information Value Date Recorded Sex Assigned at Not on file 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 La Chung Karish[facility] Onc Eren Cr Clinical Support ?? Hello, This message is for La Chung???s nurse (46). ??This is La's daughter Colleen Chung. Thisisn't urgent but I'd like to touch base on a few things and I'm available to talk it it's easier [phone]. 3 things: - Can her latest CT be posted to my health? -Her chromogranin increased again and she was not on any antacid type products for the test. Do we need to be concerned? -Is it possible to increase her gabapentin or is there another solution for pain? ??The current dose seems to have helped the deep pain and discomfort she had but the pain on her skin is still there. You can barely touch her near her stoma area and she cringes because her skin is so sensitive. Even if you just touch her hair on her belly she cringes. Thank you! Colleen Chung [phone] I called and spoke to Colleen to address the questions above. Ct results should be available (ordered from Dr. Bowen's office) by tomorrow and informed they have a1 week delay from date of image. Will follow chromogranin A trend with next lab draw in another month. Values trend up and down overthe last few months. La has pain around the stoma site. She follows with the ostomy nurse. The deeper pain improvedwith Gabapentin. Currently taking gabapentin 300 mg TID. Advised increasing to 600 mg q HS, 300 in the AM, and 300 in the afternoon, and titrate up over a few weeks time to 600 mg TID. La verbalized understanding. She was thankful for the call. Asked that she call or message if any other questions arise. documented in this encounter Plan of Treatment Not on file documented as of this encounter Visit Diagnoses Not on filedocumented in this encounter Care Teams Corporate Legal Intern Relationship Specialty Start Date End Date Julio César Briseno MD PCP - General 10/01/16 Eren Cr MD Referring Physician Medical Oncology 11/25/18 Yohana Bowen MD Radiation Oncologist Radiation Oncology 11/25/18 documented as of this encounter
--- OUTSIDE RECORDS SUMMARY | 2024-06-25 22:33 | XMS_ITS | Encounter Summary ---
Author Organization [facility] Address [address] [place] [address] Phone Care Team Providers Care Edge Worker Name Role Phone Julio César Briseno MD Primary Care Provider [phone] Eren Cr MD Unavailable [phone] Yohana Bowen MD Unavailable Reason for Visit * Episode Based Medications (Routine) - Authorized Specialty Diagnoses / Procedures Referred By Evelyne t Referred To Contact Oncology Diagnoses Neuroendocrine carcinoma (HCC) Malignant neoplasm metastatic to liver (HCC) Procedures RI OCTREOTIDE INJECTION, DEPOT Octreotide 28 Day Cycles - Carcinoid Eren Cr MD [address] [place] [address] Phone: tel: fax: [facility] [address] [address] Phone: tel: fax: Referral ID Status Reason Start Date Expiration Date V isits Requested Visits Authorized [id number] Authorized 11/28/2017 02/05/2025 1 150 Encounter Details Date Type Department Care Team (Late st Contact Info) Description 09/30/2019 2:00 PM CDT Lab [facility] Oncology [address] [place] [address] [place] [id number] Neuroendocrine carcinoma (CMS/HCC); Malignant neoplasm metastatic to liver (CMS/HCC) Social History Tobacco Use Types Packs/Day Years Used Date Smoking Tobacco: Never Smokeless Tobacco: Never Alcohol Use Standard Drinks/Week Comments Yes 1 (1 standard drink = 0.6 oz pur e alcohol) Comments No Sex and Gender Information Value Date Recorded Sex Assigned at Not on file 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 Gender Identity Not on file Sexual [...] Date/Time Associated Diagnosis Comments DIFFERENTIAL AUTO Routine 09/30/2019 1:5 8 PM CDT Neuroendocrine carcinoma (CMS/HCC) Malignant neoplasm metastatic to liver (CMS/HCC) CBC WITH AUTO DIFFERENTIAL Routine 09/30/2019 1:58 PM CDT Neuroendocrine carcinoma (CMS/HCC) Malignant neoplasm metastatic to liver (CMS/HCC) COMPREHENSIVE METABOLIC PANEL Routine 09/30/2019 1:58 PM CDT Neuroendocrine carcinoma (CMS/HCC) Malignant neoplasm metastatic to liver (CMS/HCC) CHROMOGRANIN A Routine 09/30/2019 1:58 PM CDT Neuroendocrine carcinoma (CMS/HCC) Malignant neoplasm metastatic to liver (CMS/HCC) documented in this encounter Results * (ABNORMAL) Differential, auto (09/30/2019 1:58 PM CDT) Neutrophil abs 3.8 1.8 - 6.6 K/cumm [facility] Comment:Testing performed by : [facility], [address] [place] [phone] Lymphocyte abs 0.5(L) 1.2 - 3.3 K/cumm [facility] Comment:Testing performed by : [facility], [address] [place] [phone] Monocyte abs 0.5 0.2 - 1.2 K/cumm [facility] Comment:Testing performed by : [facility], [address] [place] [phone] Eosinophil abs 0.1 0.0 - 0.5 K/cumm [facility] Comment:Testing performed by : [facility], [address] [place] [phone] Basophil abs 0.0 0.0 - 0.2 K/cumm [facility] Comment:Testing performed by : [facility], [address] [place] [phone] Neutrophil pct 76.9 % [facility] Comment: Interpretive Data Percent cell count reference ranges are not reported, since discordance with absolute values may lead to misinterpretation of CBC data. Current Interpretive Data was last revised on 2017. Testing performed by: [facility], [address] [place] [phone] Lymphocyte pct 10.4 % [facility] Comment: Interpretive Data Percent cell count reference ranges are not reported, since discordance with absolute values may lead to misinterpretation of CBC data. Current Interpretive Data was last revised on 2017. Testing performed by: [facility], [address] [place] [phone] Monocyte pct 11.0 % [facility] Comment:Testing performed by : [facility], [address] [place] [phone] Eosinophil pct 1.3 % [facility] Comment:Testing performed by : [facility], [address] [place] [phone] Basophil pct 0.4 % [facility] Comment:Testing performed by : [address] [phone] Blood specimen (specimen) 09/30/2019 1:58 PM CDT 09/30/2019 2:01 PM CDT Eren Cr MD LAB BLOOD ORDERABLES Final Re sult [facility] [place] [address] * (ABNORMAL) CBC with auto differential (09/30/2019 1:58 PM CDT) WBC 4.9 3.8 - 9.8 K/cumm [facility] Comment:Testing performed by : [facility], [address] [place] [phone] Hgb 11.9(L) 12.1 - 15.1 g/dL [facility] Comment:Testing performed by : [address] [address] Hct 33.7(L) 36.1 - 44.3 % [facility] Comment:Testing performed by : [address] [phone] Plt 106(L) 140 - 440 K/cumm [facility] Comment:Testing performed by : [facility], [address] [place] [phone] MPV 7.3 6.8 - 10.4 fL [facility] Comment:Testing performed by : [address] [phone] RBC 3.66(L) 3.90 - 5.00 M/cumm [facility] Comment:Testing performed by : [address] [address] MCV 92.1 80.0 - 97.6 fL [facility] Comment:Testing performed by : [facility], [address] [place] [phone] MCH 32.4 26.7 - 33.7 pg [facility] Comment:Testing performed by : [address] [address] MCHC 35.2 32.7 - 35.5 g/dL [facility] Comment:Testing performed by : [address] [phone] RDW CV 15.3(H) 11.8 - 14.6 % [facility] Comment:Testing performed by : [facility], [address] [place] [phone] NRBC abs 0.00 0.00 - 0.01 K/cumm [facility] Comment:Testing performed by : [facility], [address] [place] [phone] Blood specimen (specimen) 09/30/2019 1:58 PM CDT 09/30/2019 2:01 PM CDT Eren Cr MD LAB BLOOD ORDERABLES Final Re sult [facility] One [facility] [place] [address] * Comprehensive metabolic panel (09/30/2019 1:58 PM CDT) Sodium 144 135 - 145 mmol/L [facility] Comment:Testing performed by : [facility], [address] [place] [phone] Potassium, pl 4.6 3.3 - 4.9 mmol/L [facility] Comment:Testing performed by : [facility], [address] [place] [phone] Chloride 103 97 - 110 mmol/L [facility] Comment:Testing performed by : [address] [phone] CO2 27 22 - 32 mmol/L [facility] Comment:Testing performed by : [facility], [address] [place] [phone] Anion gap 14 2 - 15 mmol/L [facility] Comment:Testing performed by : [facility], [address] [place] [phone] BUN 12 8 - 25 mg/dL [facility] Comment:Testing performed by : [facility], [address] [place] [phone] Creatinine 0.77 0.60 - 1.10 mg/dL [facility] Comment:Testing performed by : [address] [address] Glucose 100 70 - 199 mg/dL [facility] Comment: [...] was last revised 2017. Testing performed by: [facility], [address] [place] [address] Calcium 10.1 8.5 - 10.3 mg/dL [facility] Comment:Testing performed by : [address] Bilirubin, total 0.4 0.1 - 1.2 mg/dL [facility] Comment:Testing performed by : [address] [phone] Protein, pl 6.6 6.5 - 8.5 g/dL [facility] Comment:Testing performed by : [address] [address] Albumin 4.4 3.5 - 5.0 g/dL [facility] Comment:Testing performed by : [address] [phone] Alk phos 72 40 - 130 Units/L [facility] Comment:Testing performed by : [address] [phone] ALT 13 7 - 45 Units/L [facility] Comment:Testing performed by : [address] [address] AST 20 10 - 45 Units/L [facility] Comment:Testing performed by : [address] [phone] Blood specimen (specimen) 09/30/2019 1:58 PM CDT 09/30/2019 2:01 PM CDT Eren Cr MD LAB BLOOD ORDERABLES Final Re sult Performing Organization Address [facility] de Phone Number [facility] [address] [place] [address] * (ABNORMAL) Chromogranin A (09/30/2019 1:58 PM CDT) Chromogranin A 161(H) <93 ng/mL [facility] Comment: Impaired renal or hepatic [...] absence of malignant disease. Test Performed by: [id number] [place] [address] Vocational Guidance Counselor: Immanuel Novak M.D. Ph.D.; CLIA# [id number] Blood specimen (specimen) 09/30/2019 1:58 PM CDT 09/30/2019 4:09 PM CDT Eren Cr MD LAB BLOOD ORDERABLES Final Re sult Performing Organization Address [facility] Co de Phone Number [facility] [address] [place] [address] documented in this encounter Visit Diagnoses Diagnosis Neuroendocrine carcinoma (HCC) Other malignant neoplasm of unspecified site Malignant neoplasm metastatic to liver (HCC) documented in this encounter Orders Appointment Requests Count Last Ordered Date Fi rst Ordered Date ONCBCN LAB APPOINTMENT 1 09/30/2019 documented in this encounter Care Teams Edge Worker Relationship Specialty Start Date End Date Julio César Briseno MD PCP - General 10/01/16 Eren Cr MD Referring Physician Medical Oncology 11/25/18 Yohana Bowen MD Radiation Oncologist Radiation Oncology 11/25/18 documented as of this encounter
--- OUTSIDE RECORDS SUMMARY | 2024-06-25 22:33 | XMS_ITS | Encounter Summary ---
Author Organization [facility] Facility Care Team Providers Care Metal And Plastic Heater Name Role Phone Julio César Briseno MD Primary Care Provider [phone] Eren Cr MD Unavailable [phone] Yohana Bowen MD Unavailable Encounter Details Date Type Department Care Team (Latest Contact Info) Description 09/02/2019 Travel Social History Tobacco Use Types Packs/Day Years Used Date Smoking Tobacco: Never Smokeless Tobacco: Never Alcohol Use Standard Drinks/Week Comments Yes 1 (1 standard drink = 0.6 oz pur e alcohol) Comments No Sex and Gender Information Value Date Recorded Sex Assigned at Not on file Legal Sex Female 2:41 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 Gender Identity Not on file Sexual Orientation Straight 02/19/2021 9: 29 AM CDT Occupation Industry Job Start Date Job End Date retired Not on file Not on file Not on file documented as of this encounter Plan of Treatment Not on file documented as of this encounter Visit Diagnoses Not on filedocumented in this encounter Care Teams Metal And Plastic Heater Relationship Specialty Start Date End Date Julio César Briseno MD PCP - General 10/01/16 Eren Cr MD Referring Physician Medical Oncology 11/25/18 Yohana Bowen MD Radiation Oncologist Radiation Oncology 11/25/18 documented as of this encounter
--- OUTSIDE RECORDS SUMMARY | 2024-06-25 22:33 | XMS_ITS | Encounter Summary ---
Author Organization [facility] Facility Care Team Providers Care Carrot Tier Name Role Phone Julio César Briseno MD Primary Care Provider [phone] Eren Cr MD Unavailable [phone] Yohana Bowen MD Unavailable Encounter Details Date Type Department Care Team (Latest Contact Info) Description 08/17/2019 Travel Social History Tobacco Use Types Packs/Day Years Used Date Smoking Tobacco: Never Smokeless Tobacco: Never Alcohol Use Standard Drinks/Week Comments Yes 1 (1 standard drink = 0.6 oz pur e alcohol) Comments No Sex and Gender Information Value Date Recorded Sex Assigned at Not on file 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
--- OUTSIDE RECORDS SUMMARY | 2024-06-25 22:33 | XMS_ITS | Encounter Summary ---
Author Organization [facility] Address [address] [place] [address] Phone Care Team Providers Care Delivery Analyst Name Role Phone Julio César Briseno MD Primary Care Provider [phone] Eren Cr MD Unavailable [phone] Yohana Bowen MD Unavailable Encounter Details Date Type Department Care Team (Late st Contact Info) Description 08/17/2019 9:30 AM PACKAGE CHECKER Lab [facility] Oncology [facility] 7th [place] [address] [place] [address] Neuro-endocrine carcinoma (CMS/HCC) Social History Tobacco Use Types Packs/Day Years Used Date Smoking Tobacco: Never Smokeless Tobacco: Never Alcohol Use Standard Drinks/Week Comments Yes 1 (1 standard drink = 0.6 oz pur e alcohol) Comments No Sex and Gender Information Value Date Recorded Sex Assigned at Not on file Legal Sex Female 2:41 PM PACKAGE CHECKER Gender Identity Not on file Sexual Orientation Straight 02/19/2021 9: 29 AM CDT Occupation Industry Job Start Date Job End Date retired Not on file Not on file Not on file documented as of this encounter Plan of Treatment Not on file documented as of this encounter Procedures Procedure Name Priority Date/Time Associated Diagnosis Comments DIFFERENTIAL AUTO Routine 08/17/2019 9:4 7 AM PACKAGE CHECKER Neuro-endocrine carcinoma (CMS/HCC) CBC WITH AUTO DIFFERENTIAL Routine 08/17/2019 9:47 AM PACKAGE CHECKER Neuro-endocrine carcinoma (CMS/HCC) CHROMOGRANIN A Routine 08/17/2019 9:40 AM PACKAGE CHECKER Neuro-endocrine carcinoma (CMS/HCC) COMPREHENSIVE METABOLIC PANEL Routine 08/17/2019 9:40 AM PACKAGE CHECKER Neuro-endocrine carcinoma (CMS/HCC) documented in this encounter Results * (ABNORMAL) Differential, auto (08/17/2019 9:47 AM PACKAGE CHECKER) Neutrophil abs 2.9 1.8 - 6.6 K/cumm [facility] Comment:Testing performed by : [facility], [address] [place] [phone] Lymphocyte abs 0.1(L) 1.2 - 3.3 K/cumm [facility] Comment:Testing performed by : [facility], [address] [place] [phone] Monocyte abs 0.4 0.2 - 1.2 K/cumm [facility] Comment:Testing performed by : [facility], [address] [place] [phone] Eosinophil abs 0.1 0.0 - 0.5 K/cumm [facility] Comment:Testing performed by : [facility], [address] [place] [phone] Basophil abs 0.0 0.0 - 0.2 K/cumm [facility] Comment:Testing performed by : [facility], [address] [place] [phone] Neutrophil pct 81.5 % [facility] Comment: Interpretive Data Percent cell count reference ranges are not reported, since discordance with absolute values may lead to misinterpretation of CBC data. Current Interpretive Data was last revised on 2017. Testing performed by: [facility], [address] [place] [phone] Lymphocyte pct 3.3 % [facility] Comment: Interpretive Data Percent cell count reference ranges are not reported, since discordance with absolute values may lead to misinterpretation of CBC data. Current Interpretive Data was last revised on 2017. Testing performed by: [facility], [address] [place] [phone] Monocyte pct 12.4 % [facility] Comment:Testing performed by : [facility], [address] [place] [phone] Eosinophil pct 2.3 % [facility] Comment:Testing performed by : [facility], [address] [place] [phone] Basophil pct 0.5 % [facility] Comment:Testing performed by : [facility], [address] [place] [phone] Blood specimen (specimen) 08/17/2019 9:47 AM PACKAGE CHECKER 08/17/2019 9:49 AM PACKAGE CHECKER us Sabrina Willard NP LAB BLOOD ORDERABLES Final R esult Performing Organization Address City/State/[facility] Co de Phone Number [facility] Department [place] [address] * (ABNORMAL) CBC with auto differential (08/17/2019 9:47 AM PACKAGE CHECKER) WBC 3.5(L) 3.8 - 9.8 K/cumm [facility] Comment:Testing performed by : [facility], [address] [place] [phone] Hgb 12.5 12.1 - 15.1 g/dL [facility] Comment:Testing performed by : [facility], [address] [place] [phone] Hct 36.3 36.1 - 44.3 % [facility] Comment:Testing performed by : [facility], [address] [place] [phone] Plt 104(L) 140 - 440 K/cumm [facility] Comment:Testing performed by : [address] [address] MPV 7.6 6.8 - 10.4 fL [facility] Comment:Testing performed by : [facility], [address] [place], [place] [phone] RBC 3.98 3.90 - 5.00 M/cumm [facility] Comment:Testing performed by : [facility], [address] [place] [address] MCV 91.2 80.0 - 97.6 fL [facility] Comment:Testing performed by : [facility], [address] [place], [place] [phone] MCH 31.3 26.7 - 33.7 pg [facility] Comment:Testing performed by : [facility], [address] [place], [place] [phone] MCHC 34.4 32.7 - 35.5 g/dL [facility] Comment:Testing performed by : [facility], [address] [place], [place] [phone] RDW CV 15.0(H) 11.8 - 14.6 % [facility] Comment:Testing performed by : [facility], [address] [place], [place] [phone] NRBC abs 0.00 0.00 - 0.01 K/cumm [facility] Comment:Testing performed by : [facility], [address] [place], [place] [phone] Blood specimen (specimen) 08/17/2019 9:47 AM PACKAGE CHECKER 08/17/2019 9:49 AM PACKAGE CHECKER Sabrina Willard NP LAB BLOOD ORDERABLES Final R esult [facility] [place] [address] * (ABNORMAL) Chromogranin A (08/17/2019 9:40 AM PACKAGE CHECKER) Chromogranin A 273(H) <93 ng/mL [facility] Comment: Impaired renal [...] absence of malignant disease. Test Performed by: [facility] [address] [place] [address] Solar Installation Crew Supervisor: Immanuel Novak M.D. Ph.D.; CLIA# [id number] Blood specimen (specimen) 08/17/2019 9:40 AM PACKAGE CHECKER 08/17/2019 10:07 AM PACKAGE CHECKER us Sabrina Willard NUCLEAR UNIT OPERATOR LAB BLOOD ORDERABLES Final R esult [facility] [place] [address] * Comprehensive metabolic panel (08/17/2019 9:40 AM PACKAGE CHECKER) Sodium 143 135 - 145 mmol/L [facility] Potassium, pl 4.3 3.3 - 4.9 mmol/L [facility] Chloride 108 97 - 110 mmol/L [facility] CO2 31 22 - 32 mmol/L [facility] Anion gap 4 2 - 15 mmol/L [facility] BUN 11 8 - 25 mg/dL [facility] Creatinine 0.78 0.60 - 1.10 mg/dL [facility] Glucose 122 70 - 199 mg/dL [facility] Comment: Interpretive Data Fasting glucose >/= [...] 2017. Calcium 10.1 8.5 - 10.3 mg/dL [facility] Bilirubin, total 0.4 0.1 - 1.2 mg/dL [facility] Protein, pl 6.6 6.5 - 8.5 g/dL [facility] Albumin 4.2 3.5 - 5.0 g/dL [facility] Alk phos 67 40 - 130 Units/L [facility] ALT 13 7 - 45 Units/L [facility] AST 23 10 - 45 Units/L [facility] Blood specimen (specimen) 08/17/2019 9:40 AM PACKAGE CHECKER 08/17/2019 10:05 AM PACKAGE CHECKER Sabrina Willard NUCLEAR UNIT OPERATOR LAB BLOOD ORDERABLES Final R esult [facility] [place] [address] documented in this encounter Visit Diagnoses Diagnosis Neuro-endocrine carcinoma (HCC) Other malignant neoplasm of unspecified site documented in this encounter Orders Appointment Requests Count Last Ordered Date Fi rst Ordered Date ONCBCN LAB APPOINTMENT 1 08/17/2019 documented in this encounter Care Teams Delivery Analyst Relationship Specialty Start Date End Date Julio César Briseno MD PCP - General 10/01/16 Eren Cr MD Referring Physician Medical Oncology 11/25/18 Yohana Bowen MD Radiation Oncologist Radiation Oncology 11/25/18 documented as of this encounter
--- OUTSIDE RECORDS SUMMARY | 2024-06-25 22:33 | XMS_ITS | Encounter Summary ---
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) Procedures VT OCTREOTIDE INJECTION, DEPOT Octreotide 28 Day Cycles - Carcinoid Eren Cr MD [address] [facility] [address] [place] [address] Phone: tel: fax: [facility] [address] [address] Phone: tel: fax: Referral ID Status Reason Start Date Expiration Date V isits Requested Visits Authorized [id number] Authorized 11/28/2017 02/05/2025 1 150 Encounter Details Date Type Department Care Team (Late st Contact Info) Description 09/02/2019 3:[address] USHER Infusion [facility] Oncology [facility] 7th [place] [address] Neuroendocrine carcinoma (CMS/HCC) (Primary Dx); Malignant neoplasm metastatic to liver (CMS/HCC) Social History Tobacco Use Types Packs/Day Years Used Date Smoking Tobacco: Never Smokeless Tobacco: Never Alcohol Use Standard Drinks/Week Comments Yes 1 (1 standard drink = 0.6 oz pur e alcohol) Comments No Sex and Gender Information Value Date Recorded Sex Assigned at Not on file Legal Sex Female 2:[address] USHER Gender Identity Not on file Sexual Orientation Straight 02/19/2021 9: 29 AM CDT Occupation Industry Job Start Date Job End Date retired Not on file Not on file Not on file documented as of this encounter Last Filed Vital Signs Vital Sign Reading Time Taken Comments Blood Pressure 133/78 09/02/2019 2:[address] USHER Pulse 69 09/02/2019 2:[address] USHER Temperature 36 ??C (96.8 ??F) 09/02/2019 2:[address] USHER Respiratory Rate 20 09/02/2019 2:[address] USHER Oxygen Saturation 98% 09/02/2019 2:[address] USHER Inhaled Oxygen Concentration - - Weight 78.6 kg (173 lb 4.5 oz) 09/02/2019 2:[address] USHER Height - - Body Mass Index 30.7 07/29/2019 6:[address] USHER documented in this encounter Nursing Notes * Rain Marie, RN - 09/02/2019 3:00 PM CST Patient received Sandostatin right dorsogluteal. Patient tolerated well. Patient left clinic ambulatory. Martínez Marie RN T USHER documented in this encounter Plan of Treatment [...] 30 mg 30 mg, intramuscular, Once, On Sat09/02/19 at 1500, For 1 dose, Refrigerate. For IM administration only. 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),Neuroendocrine carcinoma (HCC) Given 09/02/2019 2:[address] USHER 30 mg Right Dorsogluteal/Butt ock documented in this encounter Orders Medications Ordered That Brett ht Not Have Been Administered Count Last Ordered Date First Ordered Date octreotide LAR (SandoSTATIN LAR) extended release intramuscular injection 30 mg 1 09/02/2019 Appointment Requests Count Last Ordered Date Fi rst Ordered Date ONCBCN INJECTION APPOINTMENT REQUEST 1 08/09 documented in this encounter Care Teams Lead Custodian Relationship Specialty Start Date End Date Julio César Briseno MD PCP - General 10/01/16 Eren Cr MD Referring Physician Medical Oncology 11/25/18 Yohaan Bowen MD Radiation Oncologist Radiation Oncology 11/25/18 documented as of this encounter
--- OUTSIDE RECORDS SUMMARY | 2024-06-25 22:33 | XMS_ITS | Encounter Summary ---
Author Organization [facility] Healthcare Address [address] [place] [address] Care Team Providers Care Exceptional Children Teacher Assistant Name Role Phone Julio César Briseno MD Primary Care Provider [phone] Eren Cr MD Unavailable [phone] Yohana Bowen MD Unavailable Encounter Details Date Type Department Care Team (Late st Contact Info) Description 08/04/2019 Orders Only Radiology [address] [place] [id number] Shiv Dillon MD [facility] [address] [facility] [address] [place] [address] Social History Tobacco Use Types Packs/Day Years Used Date Smoking Tobacco: Never Smokeless Tobacco: Never Alcohol Use Standard Drinks/Week Comments Yes 1 (1 standard drink = 0.6 oz pur e alcohol) Comments No Sex and Gender Information Value Date Recorded Sex Assigned at Not on file Legal Sex Female 2:41 PM EMBOSSOGRAPH OPERATOR Gender Identity Not on file Sexual Orientation Straight 02/19/2021 9: 29 AM CDT Occupation Industry Job Start Date Job End Date retired Not on file Not on file Not on file documented as of this encounter Miscellaneous Notes * Pre-Procedure Note - Shiv Dillon MD - 08/04/2019 6:10 AM EMBOSSOGRAPH OPERATOR Radiology Procedure Plan Indication: Metastatic neuroendocrine tumor Planned Procedure: Peripherally inserted central catheter placement SSOGRAPH OPERATOR documented in this encounter Plan of Treatment Not on file documented as of this encounter Visit Diagnoses Not on filedocumented in this encounter Care Teams Exceptional Children Teacher Assistant Relationship Specialty Start Date End Date Julio César Briseno MD PCP - General 10/01/16 Eren Cr MD Referring Physician Medical Oncology 11/25/18 Yohana Bowen MD Radiation Oncologist Radiation Oncology 11/25/18 documented as of this encounter
--- OUTSIDE RECORDS SUMMARY | 2024-06-25 22:33 | XMS_ITS | Encounter Summary ---
Author Organization [facility] Address [address] [place] [address] Phone Care Team Providers Care Ferry Pilot Name Role Phone Julio César Briseno MD Primary Care Provider [phone] Eren Cr MD Unavailable [phone] Yohana Bowen MD Unavailable Encounter Details Date Type Department Care Team (Late st Contact Info) Description 07/16/2019 Orders Only [facility] Oncology [address] [facility] Advanced Medicine 7th [place] [address] [place] [address] Jeevan Martino, [place] [address] [place], [place] [id number] Social History Tobacco Use Types Packs/Day Years Used Date Smoking Tobacco: Never Smokeless Tobacco: Never Alcohol Use Standard Drinks/Week Comments Yes 1 (1 standard drink = 0.6 oz pur e alcohol) Comments No Sex and Gender Information Value Date Recorded Sex Assigned at Not on file Legal Sex Female 2:41 PM PATCH WASHER Gender Identity Not on file Sexual Orientation Straight 02/19/2021 9: 29 AM CDT Occupation Industry Job Start Date Job End Date retired Not on file Not on file Not on file documented as of this encounter Plan of Treatment Not on file documented as of this encounter Visit Diagnoses Not on filedocumented in this encounter Care Teams Ferry Pilot Relationship Specialty Start Date End Date Julio César Briseno MD PCP - General 10/01/16 Eren Cr MD Referring Physician Medical Oncology 11/25/18 Yohana Bowen MD Radiation Oncologist Radiation Oncology 11/25/18 documented as of this encounter
--- OUTSIDE RECORDS SUMMARY | 2024-06-25 22:33 | XMS_ITS | Encounter Summary ---
Author Organization [facility] Healthcare Address [address] [place] [address] Care Team Providers Care Property Management Assistant Name Role Phone Julio César Briseno MD Primary Care Provider [phone] Eren Cr MD Unavailable [phone] Yohana Bowen MD Unavailable Encounter Details Date Type Department Care Team (Late st Contact Info) Description 08/05/2019 7:00 AM FREEZER WORKER Office Visit [facility] Radiation Oncology [facility] Advanced Medicine [facility] [place] [address] Yohana Bowen MD [address] [facility] [address] [place], [place] [id number] Neuroendocrine carcinoma (CMS/HCC) (Primary Dx); Malignant neoplasm metastatic to liver (CMS/HCC) Social History Tobacco Use Types Packs/Day Years Used Date Smoking Tobacco: Never Smokeless Tobacco: Never Alcohol Use Standard Drinks/Week Comments Yes 1 (1 standard drink = 0.6 oz pur e alcohol) Comments No Sex and Gender Information Value Date Recorded Sex Assigned at Not on file Legal Sex Female 2:41 PM FREEZER WORKER Gender Identity Not on file Sexual Orientation Straight 02/19/2021 9: 29 AM CDT Occupation Industry Job Start Date Job End Date retired Not on file Not on file Not on file documented as of this encounter Last Filed Vital Signs Vital Sign Reading Time Taken Comments Blood Pressure 154/67 08/05/2019 12:11 PM FREEZER WORKER Pulse 79 08/05/2019 12:11 PM FREEZER WORKER Temperature - - Respiratory Rate - - Oxygen Saturation 100% 08/05/2019 12:11 PM FREEZER WORKER Inhaled Oxygen Concentration - - Weight 80.3 kg (177 lb) 08/05/2019 7:01 AM FREEZER WORKER Height - - Body Mass Index 31.35 07/29/2019 6:18 AM FREEZER WORKER documented in this encounter Progress Notes * Jade Rodriguez RN - 08/05/2019 7:00 AM CST Pt admitted to Brachytherapy for Jody-177 #4 . Identified by name, , and photo. Explained procedure to pt and pt verbalized understanding. Pt remains on study. VSS. Left arm double lumen PICC line flushes without resistance and positive blood return present. Labs drawn for study. Amino Acids started at 500ml/hr @0711 . Therapist administered Jody-[address] Bowen present. Pt completed Jody-177 administration w/o incident. Dose line removed with proper PPE and port capped with therapist assistance. Amino Acids continued to infuse at titrated rate. Pt had complained of n/v; administered 8mg zofran IVP. Pt completed Amino Acids administration w/o incident @1135. VSS. PICC line removed by . Discharge instructions explained to pt and packet provided. Pt verbalized understanding. Vitalsigns remained stable post-PICC line removal. Pt ambulatory from department. 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 I was called to supervise the administration of the Jody-177. I verified the dose. It was noted that there was air in the source to PICC line tubing prior to starting the procedure. This connecting tubing was removed and assayed for activity but was at background. New tubing with saline was installed. Dose was delivered until three stablereadings. Treatment was tolerated well. I personally removed the PICC line per standard hospital procedure. Patient was observed for 30 minutes after PICC removal with stable vital signs at 15 and 30minutes. 199.4 mCi of a prescribed dose of 200.9 mCi was delivered. 8 mg ondansetron given for nausea and vomiting. PROCEDURE FINDINGS: N/A SPECIMENS REMOVED: N/A ESTIMATED BLOOD LOSS: None DISPOSITION: Patient will receive post-treatment octreotide/SSA injection within 4-24 hours of completing this therapy. 1 month injection will be at the discretion of medical oncology and patient. Patient will return for interval imaging in 3 months. Patient is cleared and safe to be in public at discharge (although should try to avoid for the next2 days). Patient is cautioned to avoid close contact with women and children for the next 7 days, sit while urinating and wipe with toilet paper with urination for next 2 days. If the patient presents to the emergency room / hospital after discharge, no other precautions in addition to standard universal precautions are necessary. The maximum penetration in tissue is 2.2 mm and the mean penetration is 0.67 mm. Please contact radiation safety if the patient presents to the ED or is to be admitted to the hospital so this information can be properly communicated to treatment teams. ZER WORKER ZER WORKER documented in this encounter Plan of Treatment Not on file documented as of this encounter Procedures Procedure Name Priority Date/Time Associated Diagnosis Comments DIFFERENTIAL AUTO Routine 08/05/2019 6:5 5 AM FREEZER WORKER Malignant neoplasm metastatic to liver (CMS/HCC) IMMUNE DEFICIENCY PROFILE Routine 08/05/2019 6:55 AM FREEZER WORKER Malignant neoplasm metastatic to liver (CMS/HCC) CBC WITH AUTO DIFFERENTIAL Routine 08/05/2019 6:55 AM FREEZER WORKER Malignant neoplasm metastatic to liver (CMS/HCC) documented in this encounter Results * (ABNORMAL) Differential, auto (08/05/2019 6:55 AM FREEZER WORKER) Neutrophil abs 3.8 1.7 - 6.5 K/cumm [facility] Imm gran abs 0.0 0.0 - 0.1 K/cumm [facility] Lymphocyte abs 0.3(L) 0.8 - 3.3 K/cumm [facility] Monocyte abs 0.6 0.2 - 0.8 K/cumm [facility] Eosinophil abs 0.1 0.0 - 0.5 K/cumm [facility] Basophil abs 0.0 0.0 - 0.1 K/cumm [facility] Neutrophil pct 79.7 % [facility] Comment: Interpretive Data Percent cell count reference ranges are not reported, since discordance with absolute values may lead to misinterpretation of CBC data. Current Interpretive Data was last revised on 2017. Imm gran pct 0.4 % [facility] Comment: Interpretive Data Percent cell count reference ranges are not reported, since discordance with absolute values may lead to misinterpretation of CBC data. Current Interpretive Data was last revised on 2017. Lymphocyte pct 6.3 % [facility] Comment: Interpretive Data Percent cell count reference ranges are not reported, since discordance with absolute values may lead to misinterpretation of CBC data. Current Interpretive Data was last revised on 2017. Monocyte pct 11.7 % [facility] Comment: Interpretive Data Percent cell count reference ranges are not reported, since discordance with absolute values may lead to misinterpretation of CBC data. Current Interpretive Data was last revised on 2017. Eosinophil pct 1.5 % [facility] Comment: Interpretive Data Percent cell count reference ranges are not reported, since discordance with absolute values may lead to misinterpretation of CBC data. Current Interpretive Data was last revised on 2017. Basophil pct 0.4 % [facility] Comment: Interpretive Data Percent cell count reference ranges are not reported, since discordance with absolute values may lead to misinterpretation of CBC data. Current Interpretive Data was last revised on 2017. Blood specimen (specimen) 08/05/2019 6:55 AM FREEZER WORKER 08/05/2019 7:25 AM FREEZER WORKER Yohana Bowen MD LAB BLOOD ORDERABLES Final Resul t Performing Organization Address [facility] Co de Phone Number [facility] [place] [address] * (ABNORMAL) CBC with auto differential (08/05/2019 6:55 AM FREEZER WORKER) Pathologist [facility] WBC 4.8 3.8 - 9.9 K/cumm [facility] Hgb 11.9 11.9 - 15.5 g/dL [facility] Hct 34.4(L) 35.6 - 45.5 % [facility] Plt 110(L) 150 - 400 K/cumm [facility] MPV 10.1 9.1 - 12.3 fL [facility] RBC 3.90 3.90 - 5.20 M/cumm [facility] MCV 88.2 81.3 - 96.4 fL [facility] MCH 30.5 27.1 - 33.3 pg [facility] MCHC 34.6 32.3 - 35.7 g/dL [facility] RDW CV 13.9 11.1 - 14.9 % [facility] RDW SD 44.2 35.7 - 48.1 fL [facility] NRBC abs 0.00 0.00 - 0.01 K/cumm [facility] Blood specimen (specimen) 08/05/2019 6:55 AM FREEZER WORKER 08/05/2019 7:25 AM FREEZER WORKER Yohana Bowen MD LAB BLOOD ORDERABLES Final Resul t Performing Organization Address City/[facility]/ZIP Co de Phone Number [facility] [place] [address] * (ABNORMAL) Immune deficiency profile (08/05/2019 6:55 AM FREEZER WORKER) Pathologist [facility] CD4 pct 44 31 - 64 % [facility] CD4 Absolute 154(L) 365 - 1,294 cells/mcL [facility] CD8 pct 21 12 - 40 % [facility] CD8 Absolute 74(L) 187 - 781 cells/mcL [facility] CD4/CD8 ratio 2.1 0.9 - 4.4 [facility] Blood specimen (specimen) 08/05/2019 6:55 AM FREEZER WORKER 08/05/2019 7:25 AM FREEZER WORKER us Yohana Bowen MD LAB BLOOD ORDERABLES Final Resul t [facility] [place] [address] documented in this encounter Visit Diagnoses Diagnosis Neuroendocrine carcinoma (HCC)- Primary Other malignant neoplasm of unspecified site 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 Continue during and 3 hours after LUTATHERA infusion.Indications:Neuroendocr ine carcinoma (HCC) New Bag 08/05/2019 9:19 AM FREEZER WORKER 1,000 mL New Bag 08/05/2019 7:11 AM FREEZER WORKER 1,000 mL 500 mL/hr ondansetron (ZOFRAN) injection 8 mg 8 mg, intravenous, Administer over 2 Minutes, Once, On Sat08/05/19 at 1145, For 1 doseIndications:Neuroendocrine carcinoma (HCC) Given 08/05/2019 11:21 AM FREEZER WORKER 8 mg sodium chloride 0.9% infusion 50 mL/hr, intravenous, Continuous, Starting on Sat08/05/19 at 0800Indications:Neuroendocrine carcinoma (HCC) New Bag 08/05/2019 8:05 AM FREEZER WORKER 50 mL/hr 50 mL/hr documented in this encounter Care Teams Property Management Assistant Relationship Specialty Start Date End Date Julio César Briseno MD PCP - General 10/01/16 Eren Cr MD Referring Physician Medical Oncology 11/25/18 Yohana Bowen MD Radiation Oncologist Radiation Oncology 11/25/18 documented as of this encounter
--- OUTSIDE RECORDS SUMMARY | 2024-06-25 22:33 | XMS_ITS | Encounter Summary ---
Author Organization [facility] Healthcare Address [address] [place] [address] Care Team Providers Care Corporate Job Titles Name Role Phone Julio César Briseno MD Primary Care Provider [phone] Eren Cr MD Unavailable [phone] Yohana Bowen MD Unavailable Encounter Details Date Type Department Care Team (Late st Contact Info) Description 08/05/2019 Orders Only RAD ONC TREATMENTS Miscellaneous, Not In File Social History Tobacco Use Types Packs/Day Years Used Date Smoking Tobacco: Never Smokeless Tobacco: Never Alcohol Use Standard Drinks/Week Comments Yes 1 (1 standard drink = 0.6 oz pur e alcohol) Comments No Sex and Gender Information Value Date Recorded Sex Assigned at Not on file Legal Sex Female 2:41 PM ACCOUNT MANAGER EMPLOYEE BENEFITS Gender Identity Not on file Sexual Orientation Straight 02/19/2021 9: 29 AM CDT Occupation Industry Job Start Date Job End Date retired Not on file Not on file Not on file documented as of this encounter Plan of Treatment Not on file documented as of this encounter Procedures Procedure Name Priority Date/Time Associated Diagnosis Comments RAD ONC ARIA SESSION SUMMARY 08/05/2019 8:02 AM ACCOUNT MANAGER EMPLOYEE BENEFITS documented in this encounter Results * RAD ONC ARIA SESSION SUMMARY (08/05/2019 8:02 AM ACCOUNT MANAGER EMPLOYEE BENEFITS) Course Name Lutathera ARIA Course Plan Date 12/10/2018 11:08 AM ARIA Elapsed Days 224 ARIA Course Intent Unknown ARIA Treatment Start Date 12/24/2018 ARIA Treatment Site Lutathera ARIA Dose Given To Date (cGy) 800 ARIA Session Dosage Given (cGy) 200 ARIA Plan ID Lutathera ARIA Fractions Treated 4 ARIA Prescribed Dose Per Fraction (cGy) 200 ARIA Prescribed Total Dose (cGy) 800 ARIA 08/05/2019 8:02 AM ACCOUNT MANAGER EMPLOYEE BENEFITS us Not In File Miscellaneous RADIATION ONCOLOGY ORD ERABLES Final Result ARIA documented in this encounter Visit Diagnoses Not on filedocumented in this encounter Care Teams Corporate Job Titles Relationship Specialty Start Date End Date Julio César Briseno MD PCP - General 10/01/16 Eren Cr MD Referring Physician Medical Oncology 11/25/18 Yohana Bowen MD Radiation Oncologist Radiation Oncology 11/25/18 documented as of this encounter
--- OUTSIDE RECORDS SUMMARY | 2024-06-25 22:33 | XMS_ITS | Encounter Summary ---
Author Organization [facility] Address [address] [place] [address] Phone Care Team Providers Care Pictures Editor Name Role Phone Julio César Briseno MD Primary Care Provider Eren Cr MD Unavailable [phone] Yohana Bowen MD Unavailable Reason for Visit * Reason Onset Date Comments confirm surgery 07/28/2019 Encounter Details Date Type Department Care Team (Late st Contact Info) Description 07/28/2019 Telephone [facility] Surgery [address] [place] [address] Delfina Galloway RMA confirm surgery Social History Tobacco Use Types Packs/Day Years Used Date Smoking Tobacco: Never Smokeless Tobacco: Never Alcohol Use Standard Drinks/Week Comments Yes 1 (1 standard drink = 0.6 oz pur e alcohol) Comments No Sex and Gender Information Value Date Recorded Sex Assigned at Not on file Legal Sex Female 2:41 PM AUTOMATIC VULCANIZING OPERATOR Gender Identity Not on file Sexual Orientation Straight 02/19/2021 9: 29 AM CDT Occupation Industry Job Start Date Job End Date retired Not on file Not on file Not on file documented as of this encounter Miscellaneous Notes * Telephone Encounter - Delfina Galloway RMA - 07/28/2019 12:21 PM AUTOMATIC VULCANIZING OPERATOR Spoke to patient to confirm surgery for tomorrow. Arrival time [address] 3[address] floor, surgery registration NPO after midnight and a mechanic welder truck driver is needed to take her home after procedure. Patient verbalized understanding. MATIC VULCANIZING OPERATOR documented in this encounter Plan of Treatment Not on file documented as of this encounter Visit Diagnoses Not on filedocumented in this encounter Care Teams Pictures Editor Relationship Specialty Start Date End Date Julio César Briseno MD PCP - General 10/01/16 Eren Cr MD Referring Physician Medical Oncology 11/25/18 Yohana Bowen MD Radiation Oncologist Radiation Oncology 11/25/18 documented as of this encounter
--- OUTSIDE RECORDS SUMMARY | 2024-06-25 22:33 | XMS_ITS | Encounter Summary ---
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) Procedures PET/CT Ga-68 Dotatate Skull to Thigh Yohana Bowen MD [address] [facility] [address] [place] [address] Phone: tel: fax: [facility] [address] [place] [address] Referral ID Status Reason Start Date Expiration Date Visits Re quested Visits Authorized [id number] Closed 07/27/2019 02/04/2021 2 2 CARE 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 * Diagnostic Imaging (Routine) - Closed Specialty Diagnoses / Procedures Referred By Evelyne bowman Referred To Contact Radiology Diagnoses Malignant 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 (HCC) Procedures CT Chest Abdomen Pelvis W Contrast Yohana Bowen MD [address] [place] [address] Phone: tel: fax: [address] [address] Referral ID Status Reason Start Date Expiration Date Visits Re quested Visits Authorized [id number] Closed 07/27/2019 02/04/2021 1 1 CARE 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 * Diagnostic Imaging (Routine) - Closed Specialty Diagnoses / Procedures Referred By Contac t Referred To Contact Radiology Diagnoses Malignant neoplasm metastatic to liver (HCC) Procedures IR PICC Line Placement > 5 Years Yohana Bowen MD [address] [facility] [address] [place] [address] Phone: tel: fax: [address] [address] Referral ID Status Reason Start Date Expiration Date Visits Re quested Visits Authorized [id number] Closed 07/27/2019 02/04/2021 1 1 CARE 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 Encounter Details Date Type Department Care Team (Late st Contact Info) Description 07/27/2019 Orders Only [facility] Advanced Medicine Radiation Oncology [address] [place] [address] Advanced [place] [address] Hien Soto RN 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) Social History Tobacco Use Types Packs/Day Years Used Date Smoking Tobacco: Never Smokeless Tobacco: Never Alcohol Use Standard Drinks/Week Comments Yes 1 (1 standard drink = 0.6 oz pur e alcohol) Comments No Sex and Gender Information Value Date Recorded Sex Assigned at Not on file Legal Sex Female 2:41 PM LAWN CARE 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 Gender Identity Not on file Sexual Orientation Straight 02/19/2021 9: 29 AM CDT Occupation Industry Job Start Date Job End Date retired Not on file Not on file Not on file documented as of this encounter Progress Notes * Hien Soto RN - 07/27/2019 9:49 AM CST 08/04/19: PICC line [facility] 3rd floor, arrive at 1300, appt at 1400. NPO 6 hours prior to procedure, patient will need a dedicated regional driver. If on any blood thinners, stop taking 24 to 48 hours prior. If on Xarelto or Plavix, must stop taking 4 to 5 days prior. 08/05/19: [facility] S[facility] arrive at 0700. CBC and Immunodeficency labs ordered per study. Instructed to get injection 4 to 24 hours post PRRT Lodging Needed: denies 10/27/2019: CT CAP with Contrast (3 months post completion of Lutathera). [facility] 3rd floor, arrive 0950 for 1020. NPO 2 hours prior to scan. Follow up same day at 1330. DOT PET ordered and requested and follow up. (6 months post Lutathera #4). Patient aware of ALL appt and verbalized understanding. CARE 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 documented in this encounter Plan of Treatment Not on file documented as of this encounter Results * PET/CT Ga-68 Dotatate [...] -PET/CT IMAGING DATE OF STUDY: ??01/25/2020 SCANNER: [facility] RADIOPHARMACEUTICAL: 4.7 mCi Ga-68 dotatate i.v. ??Injection [...] obtained. ??The study was interpreted on the [employer] workstation. ?? Scanned area: skull vertex to [...] -PET/CT IMAGING DATE OF STUDY: 01/25/2020 SCANNER: [facility] RADIOPHARMACEUTICAL: 4.7 mCi Ga-68 dotatate i.v. Injection [...] obtained. The study was interpreted on the [employer] workstation. Scanned area: skull vertex to the [...] it. Electronically signed by: Zev Llanes M.D. us Yohana Bowen MD IMG PET PROCEDURES Final Result * CT Chest Abdomen Pelvis W Contrast [...] unchanged. Electronically signed by: Cindy Llanes M.D. us Yohana Bowen MD IMG CT PROCEDURES Final Result * (ABNORMAL) Immune deficiency profile (08/05/2019 6:55 AM LAWN CARE 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) [facility] CD4 pct 44 31 - 64 % [facility] CD4 Absolute 154(L) 365 - 1,294 cells/mcL [facility] CD8 pct 21 12 - 40 % [facility] CD8 Absolute 74(L) 187 - 781 cells/mcL [facility] CD4/CD8 ratio 2.1 0.9 - 4.4 [facility] Blood specimen (specimen) 08/05/2019 6:55 AM LAWN CARE 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 08/05/2019 7:25 AM LAWN CARE 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 us Yohana Bowen MD LAB BLOOD ORDERABLES Final Resul t [facility] [place] [address] * (ABNORMAL) CBC with auto differential (08/05/2019 6:55 AM LAWN CARE 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) [facility] WBC 4.8 3.8 - 9.9 K/cumm [facility] Hgb 11.9 11.9 - 15.5 g/dL [facility] Hct 34.4(L) 35.6 - 45.5 % [facility] Plt 110(L) 150 - 400 K/cumm [facility] MPV 10.1 9.1 - 12.3 fL [facility] RBC 3.90 3.90 - 5.20 M/cumm [facility] MCV 88.2 81.3 - 96.4 fL [facility] MCH 30.5 27.1 - 33.3 pg [facility] MCHC 34.6 32.3 - 35.7 g/dL [facility] RDW CV 13.9 11.1 - 14.9 % [facility] RDW SD 44.2 35.7 - 48.1 fL [facility] NRBC abs 0.00 0.00 - 0.01 K/cumm [facility] Blood specimen (specimen) 08/05/2019 6:55 AM LAWN CARE 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 08/05/2019 7:25 AM LAWN CARE 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 us Yohana Bowen MD LAB BLOOD ORDERABLES Final Resul t [facility] [place] [address] * IR PICC Line Placement > 5 Years (08/04/2019 3:30 PM LAWN CARE 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) Anatomical Region Laterality Modality Body N/A Radio Fluoroscop y 08/04/2019 6:32 PM LAWN CARE 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 Impressions 08/05/2019 7:17 AM LAWN CARE 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 Successful nontunneled dual lumen PICC catheter placement. PLAN: The catheter is ready for immediate use. ??When treatment is completed, this catheter can be removed at the bedside according to standard hospital protocol. ?? Dictated by: Shiv Dillon The radiology attending physician has personally reviewed this study, and had reviewed and/or edited this written report and agrees with it. Electronically signed by: Ariel Carvalho M.D. 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 ATTENDING PRESENCE: ??Ariel Carvalho M.D., the attending radiologist was present from the beginning to the end of the procedure. ?? SEDATION: The patient did not require conscious sedation for the procedure. TECHNIQUE: ?? The risks, benefits and alternatives were discussed and informed consent was obtained. ??Prior to beginning the procedure, [place] Protocol was used to confirm the patient's identity and planned procedure. ??Fluoroscopy time has been recorded in the electronic medical record. Maximum sterile barriers including cap, mask, hand hygiene, sterile gloves, sterile gown, large sterile drape and 2% chlorhexidine for cutaneous antisepsis were used. ??The skin over the left upper extremity brachial vein was sterilely prepped, draped and infiltrated with 1% buffered lidocaine. ?? Prior to the procedure, the target vessel was evaluated by ultrasound, an image of the patent vessel recorded, and this image placed in the patient's chart. ??After sterile prep, this vessel was accessed using realtime ultrasound guidance. A guidewire and catheter were then passed centrally using fluoroscopic guidance. ?? The intravascular length from the access site to the right atrium was assessed. After dilating the tract, a dual lumen PICC was inserted over the guidewire. The catheter was flushed with 100U/ml heparin and secured in place with a StatLock. ??A sterile dressing was applied. ?? ESTIMATED BLOOD LOSS: Minimal. CONDITION: Stable DISCHARGED TO: outpatient recovery. FINDINGS: The final fluoroscopic image demonstrates the catheter with its tip at the cavoatrial junction. ??No complications are seen. 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 ATTENDING PRESENCE: Ariel Carvalho M.D., the attending radiologist was present from the beginning to the end of the procedure. SEDATION: The patient did not require conscious sedation for the procedure. TECHNIQUE: The risks, benefits and alternatives were discussed and informed consent was obtained. Prior to beginning the procedure, [place] Protocol was used to confirm the patient's identity and planned procedure. Fluoroscopy time has been recorded in the electronic medical record. Maximum sterile barriers including cap, mask, hand hygiene, sterile gloves, sterile gown, large sterile drape and 2% chlorhexidine for cutaneous antisepsis were used. The skin over the left upper extremity brachial vein was sterilely prepped, draped and infiltrated with 1% buffered lidocaine. Prior to the procedure, the target vessel was evaluated by ultrasound, an image of the patent vessel recorded, and this image placed in the patient's chart. After sterile prep, this vessel was accessed using realtime ultrasound guidance. A guidewire and catheter were then passed centrally using fluoroscopic guidance. The intravascular length from the access site to the right atrium was assessed. After dilating the tract, a dual lumen PICC was inserted over the guidewire. The catheter was flushed with 100U/ml heparin and secured in place with a StatLock. A sterile dressing was applied. ESTIMATED BLOOD LOSS: Minimal. CONDITION: Stable DISCHARGED TO: outpatient recovery. FINDINGS: The final fluoroscopic image demonstrates the catheter with its tip at the cavoatrial junction. No complications are seen. IMPRESSION: Successful nontunneled dual lumen PICC catheter placement. PLAN: The catheter is ready for immediate use. When treatment is completed, this catheter can be removed at the bedside according to standard hospital protocol. Dictated by: Shiv Dillon The radiology attending physician has personally reviewed this study, and had reviewed and/or edited this written report and agrees with it. Electronically signed by: Ariel Carvalho M.D. Yohana Bowen MD IMG IR PROCEDURES Final Result documented in this encounter Visit Diagnoses Diagnosis Malignant neoplasm metastatic to liver (HCC)- Primary Malignant neoplasm metastatic to liver (HCC) Malignant neoplasm metastatic to liver (HCC) Malignant neoplasm metastatic to liver (HCC) documented in this encounter Care Teams Professor Of Graphic Design Relationship Specialty Start Date End Date Julio César Briseno MD PCP - General 10/01/16 Eren Cr MD Referring Physician Medical Oncology 11/25/18 Yohana Bowen MD Radiation Oncologist Radiation Oncology 11/25/18 documented as of this encounter
--- OUTSIDE RECORDS SUMMARY | 2024-06-25 22:33 | XMS_ITS | Encounter Summary ---
Author Organization [facility] Address [address] [place] [address] Phone Care Team Providers Care Continuous Process Coffee Roaster Name Role Phone Julio César Briseno MD Primary Care Provider Eren Cr MD Unavailable [phone] Yohana Bowen MD Unavailable Reason for Visit * Reason Comments Ostomy Care Encounter Details Date Type Department Care Team (Latest Contact Info) Description 07/21/2019 10:00 AM CHAINSTITCH TUNNEL ELASTIC OPERATOR Clinical Support [facility] Surgery [facility] [facility] 8th [place] [address] [place] [address] ([facility]) (Primary Dx) Social History Tobacco Use Types Packs/Day Years Used Date Smoking Tobacco: Never Smokeless Tobacco: Never Alcohol Use Standard Drinks/Week Comments Yes 1 (1 standard drink = 0.6 oz pur e alcohol) Comments No Sex and Gender Information Value Date Recorded Sex Assigned at Not on file Legal Sex Female 2:41 PM CHAINSTITCH TUNNEL ELASTIC OPERATOR Gender Identity Not on file Sexual Orientation Straight 02/19/2021 9: 29 AM CDT Occupation Industry Job Start Date Job End Date retired Not on file Not on file Not on file documented as of this encounter Progress Notes * Darling Blevins LPN - 07/21/2019 10:00 AM CST Ostomy Assessment 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 Their chief complaint is peristomal irritation. Stoma is retracted, pink and moist , with mucocutaneous junction intact. Their output is soft. Peristomal skin has PEH present from 6 to 9 o'clock. Patient reports that it is very painful and bleeds frequently when changing pouch. I recommended following up with Dr. Reeves. Continue to crust, no pouch system changes at this time.Recommended following up PRN. Patient was educated on PEH symptoms and causes. NSTITCH TUNNEL ELASTIC OPERATOR documented in this encounter Plan of Treatment Not on file documented as of this encounter Visit Diagnoses Diagnosis 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)- Primary Colostomy status documented in this encounter Care Teams Continuous Process Coffee Roaster Relationship Specialty Start Date End Date Julio César Briseno MD PCP - General 10/01/16 Eren Cr MD Referring Physician Medical Oncology 11/25/18 oYhana Bowen MD Radiation Oncologist Radiation Oncology 11/25/18 documented as of this encounter
--- OUTSIDE RECORDS SUMMARY | 2024-06-25 22:33 | XMS_ITS | Encounter Summary ---
Author Organization [facility] Healthcare Address [address] [place] [address] Care Team Providers Care Sports Medicine Physician Name Role Phone Julio César Briseno MD Primary Care Provider [phone] Eren Cr MD Unavailable [phone] Yohana Bowen MD Unavailable Reason for Referral * Diagnostic Imaging (Routine) - Closed Specialty Diagnoses / Procedures Referred By Evelyne bowman Referred To Contact Radiology Diagnoses Malignant neoplasm metastatic to liver (HCC) Procedures IR PICC Line Placement > 5 Years Yohana Bowen MD [address] [facility] [address] [place] [address] Phone: tel: fax: [address] [address] Referral ID Status Reason Start Date Expiration Date Visits Re quested Visits Authorized [id number] Closed 07/27/2019 02/04/2021 1 1 TIONS MARKET CONSULTANT Reason for Visit * Diagnostic Imaging (Routine) - Closed Specialty Diagnoses / Procedures Referred By Evelyne bowman Referred To Contact Radiology Diagnoses Malignant neoplasm metastatic to liver (HCC) Procedures IR PICC Line Placement > 5 Years Yohana Bowen MD [address] [facility] [address] [facility] [address] [place] [address] Phone: tel: fax: [facility] [address] [facility] [place] [address] Referral ID Status Reason Start Date Expiration Date Visits Re quested Visits Authorized [id number] Closed 07/27/2019 02/04/2021 1 1 Encounter Details Date Type Department Care Team (Latest Contact Info) Description 08/04/2019 12:57 PM SOLUTIONS MARKET CONSULTANT - 08/04/2019 3:40 PM SOLUTIONS MARKET CONSULTANT Hospital Encounter [facility] Radiology [facility] [address] [place] [address] Yohana Bowen MD [address] [facility] [address] [place] [address] Malignant neoplasm metastatic to liver (CMS/HCC) Discharge [...] on file Legal Sex Female 2:41 PM SOLUTIONS MARKET CONSULTANT Gender Identity Not on file Sexual Orientation Straight 02/19/2021 9: 29 AM CDT Occupation Industry Job Start Date Job End Date retired Not on file Not on file Not on file documented as of this encounter Last Filed Vital Signs Vital Sign Reading Time Taken Comments Blood Pressure 164/74 08/04/2019 3:25 PM SOLUTIONS MARKET CONSULTANT Pulse 70 08/04/2019 3:30 PM SOLUTIONS MARKET CONSULTANT Temperature 36.2 ??C (97.2 ??F) 08/04/2019 3:25 PM CS T Respiratory Rate 15 08/04/2019 3:25 PM SOLUTIONS MARKET CONSULTANT Oxygen Saturation 97% 08/04/2019 3:30 PM SOLUTIONS MARKET CONSULTANT Inhaled Oxygen Concentration - - Weight - - Height - - Body Mass Index - - documented in this encounter Discharge Diagnoses Diagnosis Other malignant neuroendocrine tumors (HCC) - OTHER MALIGNANT NEUROENDOCRINE TUMORS Other secondary neuroendocrine tumors (HCC) - OTHER SECONDARY NEUROENDOCRINE TUMORS documented in this encounter Discharge Instructions * Discharge Instructions* Shiv Dillon MD - 08/04/2019 3:26 PM SOLUTIONS MARKET CONSULTANT Interventional Radiology Outpatient Discharge Instructions/Note Diagnosis: Neuroendocrine tumor Procedure: PICC placement Limitations: [x] No lifting greater than 10 pounds with [] Right [] Left arm for 3 days. [] You received medication that may [...] sheet. [x] Keep site clean and dry. [x] You may bathe or shower tomorrow. [] [...] draining. To contact an Interventional Radiologist at [facility] call [phone] Saturday through Saturday from 7:30am-4:30pm. At all other times call [phone] and ask that the Interventional Radiologist be paged. To contact an Interventional Radiologist at [facility] call [phone] Saturday through Saturday from 7:30am-3:30pm. Special instructions: [...] at Please come to: [] 3rd Floor [facility] [] 4th floor [facility] [] [facility] [] [facility] Please call [phone] to schedule a follow up appointment. You need to return in TIONS MARKET CONSULTANT documented in this encounter Medications at Time of Discharge simvastatin (ZOCOR) 20 mg tablet Take 1 tablet (20 mg total) by mouth nightly ascorbic acid, vitamin C, 500 mg capsuleIndications :supplement Take 1 tablet by mouth bone drier before breakfast 07/04/2016 4 bisacodyl (DULCOLAX) 10 mg suppository Gentle Laxative (bisacodyl) 10 mg rectal suppository USE DIRECTED 0 cholecalciferol (VITAMIN D-3) 2,000 unit capsule Take 1 capsule (2,000 Units total) by mouth daily 30 capsule 2 04/25/2019 3 clotrimazole-betam ethasone (LOTRISONE) cream Apply 1 Application topically daily as needed (rash) 4 coenzyme L17-hgmjeeg E 100-5 mg-unit capsuleIndications :supplement Take 1 tablet by mouth bone drier before breakfast [address] (CYMBALTA) 30 mg capsule Take 1 capsule (30 mg total) by mouth daily 30 capsule 2 04/24/2019 4 fluticasone propionate (FLONASE) 50 mcg/actuation nasal sprayIndications:A llergic Rhinitis Administer 2 sprays into each nostril daily as needed for rhinitis or allergies 4 hydrocortisone (PROCTOSOL HC) 2.5 % rectal cream [...] tablet by mouth every morning 05/14/2019 4 oxybutynin (DITROPAN) 5 mg tabletIndications: Bladder Hyperactivity [...] documented in this encounter Nursing Notes * Nitin Graves RN - 08/04/2019 2:55 PM CST Pt transferred to table with full assist, placed on monitor, all comfort and safety measures in place. TIONS MARKET CONSULTANT documented in this encounter Miscellaneous Notes * Post-Procedure Note - Shiv Dillon MD - 08/04/2019 3:25 PM SOLUTIONS MARKET CONSULTANT Radiology Brief Post Procedure Note Attending: Dr. Carvalho Sales Engineer Account Manager: Dr. Dillon Sedation/Anesthesia: Min Sedation Pre-Op/Pre-Procedure Diagnosis: Neuroendocrine tumor Post-Op/Post-Procedure Diagnosis: Same Procedure Performed: PICC placement Procedure Findings: Successful RUE PICC w/ tip at cavoatrial junction. Ready for immediate use. Complications: None Estimated Blood Loss: < 30 ml Specimens: None Condition: Stable Full report to follow. TIONS MARKET CONSULTANT documented in this encounter Plan of Treatment Not on file documented as of this encounter Procedures Procedure Name Priority Date/Time Associated Diagnosis Comments IR PICC LINE PLACEMENT > 5 YEARS Schedule Routine, Read Routine (OP Routine) 08/04/2019 3:30 PM SOLUTIONS MARKET CONSULTANT Malignant neoplasm metastatic to liver (CMS/HCC) documented in this encounter Results * IR PICC Line Placement > 5 Years (08/04/2019 3:30 PM SOLUTIONS MARKET CONSULTANT) Anatomical Region Laterality Modality Body N/A Radio Fluoroscop y 08/04/2019 6:32 PM SOLUTIONS MARKET CONSULTANT Impressions 08/05/2019 7:17 AM SOLUTIONS MARKET CONSULTANT Successful nontunneled dual lumen PICC catheter placement. [...] Ariel Carvalho M.D. Narrative 08/05/2019 7:17 AM SOLUTIONS MARKET CONSULTANT EXAMINATION: ??NONTUNNELED CENTRAL VENOUS CATHETER PLACEMENT (STD) [...] was obtained. ??Prior to beginning the procedure, [place] Protocol was used to confirm the patient's [...] was obtained. Prior to beginning the procedure, [place] Protocol was used to confirm the patient's [...] Dose Rate Site heparin 100 unit/mL injection Code/trauma/sedation medication, Starting on Sat08/04/19 at 1519, Indications: Maintain Patency of Indwelling Vascular CatheterIndications:Maintain Patency of Indwelling Vascular Catheter Given 08/04/2019 3:19 PM SOLUTIONS MARKET CONSULTANT 5 mL lidocaine PF (XYLOCAINE) 10 mg/mL (1 %) preservative free injection Code/trauma/sedation medication, Starting on Sat08/04/19 at 1509, Intra-Procedure (IR), Indications: Administration of Local AnesthesiaIndications:Administration of Local Anesthesia Given 08/04/2019 3:09 PM SOLUTIONS MARKET CONSULTANT 5 mL documented in this encounter Active and Recently Administered Medications Times are shown in SOLUTIONS MARKET CONSULTANT. PRN Medication Order 08/02/2019 08/03/2019 08/04/2019 heparin 100 unit/mL injection (CANCELED) Code/trauma/sedation medication, Starting on Sat08/04/19 at 1519, Indications: Maintain Patency of Indwelling Vascular Catheter 1519 (Given - Provid er: Shiv Dillon MD) lidocaine PF (XYLOCAINE) 10 mg/mL (1 %) preservative free injection (CANCELED) Code/trauma/sedation medication, Starting on Sat08/04/19 at 1509, Intra-Procedure (IR), Indications: Administration of Local Anesthesia 1509 (Given - Provid er: Shiv Dillon MD) documented in this encounter Care Teams Sports Medicine Physician Relationship Specialty Start Date End Date Julio César Briseno MD PCP - General 10/01/16 Eren Cr MD Referring Physician Medical Oncology 11/25/18 Yohana Bowen MD Radiation Oncologist Radiation Oncology 11/25/18 documented as of this encounter
--- OUTSIDE RECORDS SUMMARY | 2024-06-25 22:33 | XMS_ITS | Encounter Summary ---
Author Organization [facility] Address [address] [place] [address] Phone Care Team Providers Care Kettle Loader Name Role Phone Julio César Briseno MD Primary Care Provider [phone] Eren Cr MD Unavailable [phone] Yohana Bowen MD Unavailable Reason for Visit * Episode Based Medications (Routine) - Authorized Specialty Diagnoses / Procedures Referred By Evelyne t Referred To Contact Oncology Diagnoses Neuroendocrine carcinoma (HCC) Malignant neoplasm metastatic to liver (HCC) Procedures [place] OCTREOTIDE INJECTION, DEPOT Octreotide 28 Day Cycles - Carcinoid Eren Cr MD [address] [facility] [address] [place] [address] Phone: tel: fax: [facility] [address] [address] Phone: tel: fax: Referral ID Status Reason Start Date Expiration Date V isits Requested Visits Authorized [id number] Authorized 11/28/2017 02/05/2025 1 150 Encounter Details Date Type Department Care Team (Late st Contact Info) Description 09/02/2019 2:00 PM FEED CRUSHER OPERATOR Lab [facility] Oncology [facility] 7th [place] [address] [place] [address] Neuroendocrine carcinoma (CMS/HCC); Malignant neoplasm metastatic to liver (CMS/HCC) Social History Tobacco Use Types Packs/Day Years Used Date Smoking Tobacco: Never Smokeless Tobacco: Never Alcohol Use Standard Drinks/Week Comments Yes 1 (1 standard drink = 0.6 oz pur e alcohol) Comments No Sex and Gender Information Value Date Recorded Sex Assigned at Not on file Legal Sex Female 2:41 PM FEED CRUSHER OPERATOR Gender Identity Not on file Sexual Orientation Straight 02/19/2021 9: 29 AM CDT Occupation Industry Job Start Date Job End Date retired Not on file Not on file Not on file documented as of this encounter Plan of Treatment Not on file documented as of this encounter Procedures Procedure Name Priority Date/Time Associated Diagnosis Comments DIFFERENTIAL AUTO Routine 09/02/2019 2:1 4 PM FEED CRUSHER OPERATOR Neuroendocrine carcinoma (CMS/HCC) Malignant neoplasm metastatic to liver (CMS/HCC) CBC WITH AUTO DIFFERENTIAL Routine 09/02/2019 2:14 PM FEED CRUSHER OPERATOR Neuroendocrine carcinoma (CMS/HCC) Malignant neoplasm metastatic to liver (CMS/HCC) CHROMOGRANIN A Routine 09/02/2019 2:00 PM FEED CRUSHER OPERATOR Neuroendocrine carcinoma (CMS/HCC) Malignant neoplasm metastatic to liver (CMS/HCC) COMPREHENSIVE METABOLIC PANEL Routine 09/02/2019 2:00 PM FEED CRUSHER OPERATOR Neuroendocrine carcinoma (CMS/HCC) Malignant neoplasm metastatic to liver (CMS/HCC) documented in this encounter Results * (ABNORMAL) Differential, auto (09/02/2019 2:14 PM FEED CRUSHER OPERATOR) Neutrophil abs 2.5 1.8 - 6.6 K/cumm JASON BLACK Comment:Testing performed by : [facility], [address] [place] [phone] Lymphocyte abs 0.4(L) 1.2 - 3.3 K/cumm JASON BLACK Comment:Testing performed by : [facility], [facility] [phone] Monocyte abs 0.5 0.2 - 1.2 K/cumm JASON LEAVITT Comment:Testing performed by : [facility], [address] [place] [phone] Eosinophil abs 0.0 0.0 - 0.5 K/cumm CERNER BJ Comment:Testing performed by : [facility], [address] [place] [phone] Basophil abs 0.0 0.0 - 0.2 K/cumm CERNER BJ Comment:Testing performed by : [facility], [address] [place] [phone] Neutrophil pct 72.8 % C[facility]ER [facility] Comment: Interpretive Data Percent cell count reference ranges are not reported, since discordance with absolute values may lead to misinterpretation of CBC data. Current Interpretive Data was last revised on 2017. Testing performed by: [facility], [address] [place] [phone] Lymphocyte pct 11.5 % [facility] Comment: Interpretive Data Percent cell count reference ranges are not reported, since discordance with absolute values may lead to misinterpretation of CBC data. Current Interpretive Data was last revised on 2017. Testing performed by: [facility], [address] [place] [phone] Monocyte pct 14.4 % CERNER BJ Comment:Testing performed by : [facility], [address] [place] [phone] Eosinophil pct 0.9 % CERNER BJ Comment:Testing performed by : [address] [phone] Basophil pct 0.4 % CERNER BJ Comment:Testing performed by : [facility], [address] [place] [phone] Blood specimen (specimen) 09/02/2019 2:14 PM FEED CRUSHER OPERATOR 09/02/2019 2:15 PM FEED CRUSHER OPERATOR us Eren Cr MD LAB BLOOD ORDERABLES Final Re sult [facility] Department [place] [address] * (ABNORMAL) CBC with auto differential (09/02/2019 2:14 PM FEED CRUSHER OPERATOR) WBC 3.5(L) 3.8 - 9.8 K/cumm CERNER BJ Comment:Testing performed by : [facility], [address] [place], [place] [id number] Hgb 13.0 12.1 - 15.1 g/dL CERNER BJ Comment:Testing performed by : [place] [id number] Hct 37.6 36.1 - 44.3 % [facility] Comment:Testing performed by : [place] [id number] Plt 94(L) 140 - 440 K/cumm CERNER BJ Comment:Testing performed by : [place] [address] MPV 7.7 6.8 - 10.4 fL CERNER BJ Comment:Testing performed by : [place] [address] RBC 4.19 3.90 - 5.00 M/cumm CERNER BJ Comment:Testing performed by : [place] [id number] MCV 89.8 80.0 - 97.6 fL C[facility]ER BJ Comment:Testing performed by : [place] [address] MCH 31.1 26.7 - 33.7 pg CERNER BJ Comment:Testing performed by : [place] [id number] MCHC 34.6 32.7 - 35.5 g/dL C[facility] BJ Comment:Testing performed by : [place] [id number] RDW CV 15.0(H) 11.8 - 14.6 % [facility] Comment:Testing performed by : [place] [id number] NRBC abs 0.00 0.00 - 0.01 K/cumm [facility] Comment:Testing performed by : [place] [id number] Blood specimen (specimen) 09/02/2019 2:14 PM FEED CRUSHER OPERATOR 09/02/2019 2:15 PM FEED CRUSHER OPERATOR us Eren Cr MD LAB BLOOD ORDERABLES Final Re sult [facility] Department [place] [address] * (ABNORMAL) Comprehensive metabolic panel (09/02/2019 2:00 PM FEED CRUSHER OPERATOR) Sodium 141 135 - 145 mmol/L [facility] Potassium, pl 3.5 3.3 - 4.9 mmol/L [facility] Chloride 106 97 - 110 mmol/L [facility] CO2 27 22 - 32 mmol/L [facility] Anion gap 8 2 - 15 mmol/L [facility] BUN 16 8 - 25 mg/dL [facility] Creatinine 0.92 0.60 - 1.10 mg/dL [facility] Glucose 113 70 - 199 mg/dL [facility] Comment: Interpretive Data Fasting glucose >/= 126 [...] interpretive data was last revised 2017. Calcium 10.5(H) 8.5 - 10.3 mg/dL [facility] Bilirubin, total 0.5 0.1 - 1.2 mg/dL [facility] Protein, pl 7.3 6.5 - 8.5 g/dL [facility] Albumin 4.3 3.5 - 5.0 g/dL [facility] Alk phos 83 40 - 130 Units/L [facility] ALT 15 7 - 45 Units/L [facility] AST 25 10 - 45 Units/L [facility] Blood specimen (specimen) 09/02/2019 2:00 PM FEED CRUSHER OPERATOR 09/02/2019 2:26 PM FEED CRUSHER OPERATOR Eren Cr MD LAB BLOOD ORDERABLES Final Re sult Performing Organization Address [facility] Co de Phone Number J[facility]ON [facility] [place] [address] * (ABNORMAL) Chromogranin A (09/02/2019 2:00 PM FEED CRUSHER OPERATOR) Chromogranin A 196(H) <93 ng/mL [facility] Comment: Impaired renal or hepatic function or treatment with proton pump inhibitors may result in artifactual elevations of Chromogranin A. ADDITIONAL INFORMATION This test was developed and its performance characteristics determined by [facility] in a manner consistent with CLIA requirements. [...] absence of malignant disease. Test Performed by: [facility] [address] Corporate Lawyer: Immanuel Novak M.D. Ph.D.; CLIA# [id number] Blood specimen (specimen) 09/02/2019 2:00 PM FEED CRUSHER OPERATOR 09/02/2019 4:11 PM FEED CRUSHER OPERATOR Eren Cr MD LAB BLOOD ORDERABLES Final Re sult Performing Organization Address [facility]/ZIP Co de Phone Number JASON [facility] [place] [address] documented in this encounter Visit Diagnoses Diagnosis Neuroendocrine carcinoma (HCC) Other malignant neoplasm of unspecified site Malignant neoplasm metastatic to liver (HCC) documented in this encounter Orders Appointment Requests Count Last Ordered Date Fi rst Ordered Date ONCBCN LAB APPOINTMENT 1 09/02/2019 documented in this encounter Care Teams Kettle Loader Relationship Specialty Start Date End Date Julio César Briseno MD PCP - General 10/01/16 Eren Cr MD Referring Physician Medical Oncology 11/25/18 Yohana Bowen MD Radiation Oncologist Radiation Oncology 11/25/18 documented as of this encounter
--- OUTSIDE RECORDS SUMMARY | 2024-06-25 22:33 | XMS_ITS | Encounter Summary ---
Author Organization [facility] Address [address] [place] [address] Phone Care Team Providers Care Diesel Dinkey Engineer Name Role Phone Julio César Briseno MD Primary Care Provider Eren Cr MD Unavailable [phone] Yohana Bowen MD Unavailable Reason for Visit * Reason Onset Date Comments Appointment changes 10/21/2019 Encounter Details Date Type Department Care Team (Late st Contact Info) Description 10/21/2019 Telephone [facility] [address] [place] [address] Sola Heredia Appointment changes Social History Tobacco Use Types Packs/Day Years Used Date Smoking Tobacco: Never Smokeless Tobacco: Never Alcohol Use Standard Drinks/Week Comments Yes 1 (1 standard drink = 0.6 oz pur e alcohol) Comments No Sex and Gender Information Value Date Recorded Sex Assigned at Not on file Legal Sex Female 2:41 PM GENERAL EXPEDITOR Gender Identity Not on file Sexual Orientation [...] * Telephone Encounter - Sola Heredia - 10/21/2019 12:22 PM CDT Spoke with patient to discuss appointment changes recommendations per Dr. Cr/Joanie Willard NP due to current pandemic. Proposed changing lab and octreotide injection to be done same day as CT scan. Per insurance auth team, injection may be given a day early () and covered, therefore jenelle have her CT scan at 1020, labs 11:30 and injection at 11:45. Patient is agreeable to this plan. Appointment for 11/01 has been cancelled and follow up determined by scan and lab results. Patient aware she will be called after scan. Patient reports she is no longer taking Protonix and has not taken in over a months time. She also reports improvement of pain with Gabapentin. Patient will call with any questions or concerns in the interim. documented in this encounter Plan of Treatment Not on file documented as of this encounter Visit Diagnoses Not on filedocumented in this encounter Care Teams Diesel Dinkey Engineer Relationship Specialty Start Date End Date Julio César Briseno MD PCP - General 10/01/16 Eren Cr MD Referring Physician Medical Oncology 11/25/18 Yohana Bowen MD Radiation Oncologist Radiation Oncology 11/25/18 documented as of this encounter
--- OUTSIDE RECORDS SUMMARY | 2024-06-25 22:33 | XMS_ITS | Encounter Summary ---
Author Organization [facility] Healthcare Address [address] [place] [address] Care Team Providers Care Optical Goods Drilling Machine Operator Name Role Phone Julio César Briseno MD Primary Care Provider Eren Cr MD Unavailable [phone] Yohana Bowen MD Unavailable Encounter Details Date Type Department Care Team (Latest Contact Info) Description 07/29/2019 5:54 AM X RAY CONTROL EQUIPMENT REPAIRER - 07/29/2019 9:30 AM X RAY CONTROL EQUIPMENT REPAIRER Hospital Encounter [facility] Operating Room [address] [place] [address] Thea Reeves MD [address] [facility] [phone] [place] [address] Discharge Disposition: Discharge to home or self care Social History Tobacco Use Types Packs/Day Years Used Date Smoking Tobacco: Never Smokeless Tobacco: Never Alcohol Use Standard Drinks/Week Comments Yes 1 (1 standard drink = 0.6 oz pur e alcohol) Comments No Sex and Gender Information Value Date Recorded Sex Assigned at Not on file Legal Sex Female 2:41 PM X RAY CONTROL EQUIPMENT REPAIRER Gender Identity Not on file Sexual Orientation Straight 02/19/2021 9: 29 AM CDT Occupation Industry Job Start Date Job End Date retired Not on file Not on file Not on file documented as of this encounter Last Filed Vital Signs Vital Sign Reading Time Taken Comments Blood Pressure 132/78 07/29/2019 9:10 AM X RAY CONTROL EQUIPMENT REPAIRER Pulse 87 07/29/2019 9:10 AM X RAY CONTROL EQUIPMENT REPAIRER Temperature 36.2 ??C (97.2 ??F) 07/29/2019 8:44 AM CS T Respiratory Rate 20 07/29/2019 9:10 AM X RAY CONTROL EQUIPMENT REPAIRER Oxygen Saturation 92% 07/29/2019 9:10 AM X RAY CONTROL EQUIPMENT REPAIRER Inhaled Oxygen Concentration - - Weight 77.1 kg (170 lb) 07/29/2019 6:18 AM X RAY CONTROL EQUIPMENT REPAIRER Height 160 cm (5' 3 ) 07/29/2019 6:18 AM X RAY CONTROL EQUIPMENT REPAIRER Body Mass Index 30.11 07/29/2019 6:18 AM X RAY CONTROL EQUIPMENT REPAIRER documented in this encounter Discharge Diagnoses Diagnosis Epidermal thickening, unspecified - EPIDERMAL THICKENING, UNSPECIFIED Colostomy status (CMS/HCC) (HCC) - COLOSTOMY STATUS Colostomy status Other malignant neuroendocrine tumors (HCC) - OTHER MALIGNANT NEUROENDOCRINE TUMORS 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 * Colostomy Care (Discharge Care) (Italian) documented in this encounter Medications at Time of Discharge simvastatin (ZOCOR) 20 mg tablet Take 1 tablet (20 mg total) by mouth nightly ascorbic acid, vitamin C, 500 mg capsuleIndications :supplement Take 1 tablet by mouth cosmetic maker before breakfast 07/04/2016 4 bisacodyl (DULCOLAX) 10 mg suppository Gentle Laxative (bisacodyl) 10 mg rectal suppository USE DIRECTED 0 cholecalciferol (VITAMIN D-3) 2,000 unit capsule Take 1 capsule (2,000 Units total) by mouth daily 30 capsule 2 04/25/2019 3 clotrimazole-betam ethasone (LOTRISONE) cream Apply 1 Application topically daily as needed (rash) 4 coenzyme [id number] 100-5 mg-unit capsuleIndications :supplement Take 1 tablet by mouth cosmetic maker before breakfast [address] (CYMBALTA) 30 [...] documented in this encounter H&P Notes * Bang Maloney MD - 07/29/2019 8:17 AM CST I have reviewed the H&P, examined the patient, and endorse the findings as written. Plan of Care : Based on the above findings, I consider La Chung to be an acceptable risk for :Procedure(s): FULGURATION PARASTOMAL EPITHELIAL HYPERPLASIA Cosigned by Thea Reeves MD at 07/29/2019 8:21 AM X RAY CONTROL EQUIPMENT REPAIRER X RAY CONTROL EQUIPMENT REPAIRER X RAY CONTROL EQUIPMENT REPAIRER Source Note - Caren Boyce MD - 07/29/2019 7:45 AM X RAY CONTROL EQUIPMENT REPAIRER Images from the original note were not included. Anesthesia Evaluation La Chung is a 68 y.o. female Procedure(s): FULGURATION PARASTOMAL EPITHELIAL HYPERPLASIA Pre-Op Diagnosis Codes: * 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) [Z93.3] * Epithelial hyperplasia [L85.9] Patient Active Problem List Diagnosis ??? Neuroendocrine carcinoma (CMS/HCC) ??? 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 Neuro-endocrine carcinoma (CMS/HCC) ??? Bone metastasis (CMS/HCC) ??? Large bowel obstruction (CMS/HCC) ??? Hypocalcemia ??? ANNE-MARIE (acute kidney injury) (CMS/HCC) ??? Acute blood loss anemia ??? 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 Epithelial hyperplasia Past Medical History: Diagnosis Date ??? [...] > 5 YEARS N/A 06/09/2019 ? ? GA REMOVAL OF TONSILS,<12 Y/O Tonsillectomy - (Added by TW Conv) ??? GA TOTAL ABDOM HYSTERECTOMY Hysterectomy - (Added by TW Conv) OB History 6 Para 4 Term 4 0 AB 2 Living 4 SAB 2 TAB Ectopic Multiple Live Births Allergies Allergen Reactions ??? Ezetimibe-Simvastatin Muscle pain and Unknown Muscle weakness ??? Ramipril Cough Med List Status: Nurse Complete Set By: Penelope Sims RN at 07/29/2019 6:41 AM Taking? Last Dose Start Date End Date Provider ascorbic acid, vitamin C, 500 mg capsule 07/28/2019 07/04/16 -- Historical Provider, bisacodyl (DULCOLAX) 10 mg suppository 07/28/2019 -- -- Historical Provider, cholecalciferol (VITAMIN D-3) 2,000 unit capsule 07/28/2019 04/25/19 -- Laura Lopes MD Take 1 capsule (2,000 Units total) by mouth daily clotrimazole-betamethasone (LOTRISONE) cream More than a month -- -- Historical Provider, coenzyme [id number] E (CO Q-10, WITH VIT E,) 100-5 mg-unit capsule 07/28/2019 -- -- Historical Provider, DULoxetine DR (CYMBALTA) 30 mg capsule 07/28/2019 04/24/19 -- Laura Lopes MD Take 1 capsule (30 mg total) by mouth daily fluticasone propionate (FLONASE) 50 mcg/actuation nasal spray More than a month -- -- Historical Provider, hydrocortisone (PROCTOSOL HC) 2.5 % rectal cream More than a month -- -- Historical Provider, montelukast (SINGULAIR) 10 mg tablet More than a month -- -- Historical Provider, olmesartan-hydrochlorothiazide (BENICAR HCT) 20-12.5 mg per tablet 07/28/2019 05/14/19 -- HistoricalProviderMD oxybutynin (DITROPAN) 5 mg tablet () 04/24/19 06/18/19 Laura Lopes MD Take 1 tablet (5 mg total) by mouth 2 (two) times a day for 14 days oxyCODONE (ROXICODONE) 5 mg immediate release tablet More than a month 04/24/19 -- Laura Lopes MD Take 1 tablet (5 mg total) by mouth every 4 (four) hours as needed for pain Patient not taking: Reported on 06/18/[address] (PROTONIX) 40 mg EC tablet Past Week 05/12/19 -- Historical Provider, simvastatin (ZOCOR) 20 mg tablet 07/28/2019 -- -- Historical Provider, Current Facility-Administered Medications: ??? Lactated Ringer's (LR) infusion, 30 mL/hr, intravenous, Continuous, Last Rate: 30 mL/hr at 07/29/1940, 30 mL/hr at 07/29/19 06 ??? sodium chloride 0.9% flush 0.5-20 mL, 0.5-20 mL, intra-catheter, PRN Facility-Administered Medications Ordered in Other Encounters: ??? [...] TW Conv) ??? Other (old age) Mother Vitals: 07/29/19 0645 07/29/19 0650 07/29/19 0655 BP: 152/70 Pulse: 70 71 67 Resp: 11 16 15 Temp: SpO2: 95% 98% 95% PT: No results found for requested labs within last 720 hours. INR: No results found for requested labs within last 720 hours. APTT: No results found for requested labs within last 720 hours. Hgb A1C: No results found for requested labs within last 720 hours. CBC RBC: 07/20/2019: 4.28 M/cumm RDW: No results found for requested labs within last 720 hours. MCHC: 07/20/2019: 34.5 g/dL MCH: 07/20/2019: 30.4 pg MCV: 07/20/2019: 88.1 fL Hct: 07/20/2019: 37.7 % Hgb: 07/20/2019: 13.0 g/dL WBC: 07/20/2019: 3.7 K/cumm* MPV: 07/20/2019: 7.5 fL Platelets: 07/20/2019: 100 K/cumm* RDW CV: 07/20/2019: 14.0 % RDW Sd: No results found for requested labs within last 720 hours. BMP Glucose: 07/20/2019: 109 mg/dL Calcium: 07/20/2019: 10.5 mg/dL* Sodium: 07/20/2019: 143 mmol/L Potassium: 07/20/2019: 4.9 mmol/L CO2: 07/20/2019: 29 mmol/L Chloride: 07/20/2019: 110 mmol/L BUN: 07/20/2019: 13 mg/dL Creatinine: 07/20/2019: 0.89 mg/dL STOP-Bang Total Score: 3 DOS Physical Exam Medical history, medications, and allergies reviewed. Attestation: I endorse the findings of the anesthesia pre-evaluation assessment dated: 07/29/2019. Airway Exam: Mallampati: II Cervical ROM: FROM TM distance: 3.5 Jaw ROM: full Cardiovascular Exam: Rate: regular Rhythm: regular Pulmonary Exam: LCTA, bilat EENT Exam: trachea midline Dental Exam: Appears intact Skin Exam: Skin is warm. Current state: Patient's current state is cooperative and interactive. Anesthesia Plan ASA 2 My patient is approved for the Anesthesia Controlled Medication protocol when under care of a REGISTERED RESPIRATORY THERAPIST Planned anesthesia: General Team communication plan: oral ET tube Induction: Induction: intravenous and RSI. Postoperative Plan: Postoperative administration opioids intended. No postoperative mechanical ventilation intended. Patient's planned disposition post procedure is Outpatient. Informed Consent: Discussed plan with REGISTERED RESPIRATORY THERAPIST. Anesthesia plan and risks discussed with patient. Consent and Attending signature: I and/or my designee have discussed the anesthesia plan, benefits, possible alternatives, parental presence at time of induction (if indicated), and clinically relevant risks that may include dental injury, unintentional awareness, and/or other complications. The patient and/or parent/legal guardian understand, and agree to proceed. All questions answered. X RAY CONTROL EQUIPMENT REPAIRER documented in this encounter Miscellaneous Notes * Op Note - Thea Reeves MD - 07/29/2019 8:27 AM CST SURGEON Thea Reeves MD SORORITY SUPERVISOR: Renzo Maloney PREOPERATIVE DIAGNOSIS:Hypertrophic epithelial hyperplasia of skin as stoma site POSTOPERATIVE DIAGNOSIS: Same OPERATIVE PROCEDURE:Fulguration of HEH ANESTHESIAIV sedation with 40 mL of 0.25% Marcaine. INDICATIONS FOR PROCEDURE The patient is a 68 y.o. female with a history of metastatic neuroendocrine tumor. She developed a large bowel obstruction requiring a E diverting colostomy. She has subsequently developed hypertrophic granulation tissue at the mucocutaneous junction. This is extremely painful and bleeds therefore she now presents for treatment. OPERATIVE FINDINGS: Small ridge of granulation tissue circumferentially at the mucocutaneous junction OPERATIVE PROCEDUREWith informed consent, the patient was brought to the operating room, placed in the supine position. She was not given any prophylactic IV antibiotics or venous thromboembolic event prophylaxis. The abdomen was prepped and draped in usual sterile fashion. IV sedation was given and the peristomal area was infiltrated with local anesthesia. The hypertrophic granulation tissue wasfulgurated with electrocautery circumferentially. The patient tolerated the procedure well and was taken to postanesthesia recovery in stable condition. SPONGE, INSTRUMENT, NEEDLE COUNTS were correct. TOTAL IV FLUIDS: 1 L ESTIMATED BLOOD LOSS: Minimal. SPECIMEN: None Of note, I Dr. Reeves, was present for the entire case. THEA REEVES M.D. X RAY CONTROL EQUIPMENT REPAIRER documented in this encounter Plan of Treatment Not on file documented as of this encounter Procedures Procedure Name Priority Date/Time Associated Diagnosis Comments FULGURATION PARASTOMAL EPITHELIAL HYPERPLASIA 07/29/2019 8:24 AM X RAY CONTROL EQUIPMENT REPAIRER 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) Epithelial hyperplasia documented in this encounter Visit Diagnoses Diagnosis 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) Colostomy status Epithelial hyperplasia Other specified disorder of skin documented in this encounter Admitting Diagnoses Diagnosis 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) Colostomy status Epithelial hyperplasia Other specified disorder of skin documented in this encounter Administered Medications Inactive Administered Medications - up to 3 most recent administrations Medication Order MAR Action Action Date Dose Rate Site Lactated Ringer's (LR) infusion 30 mL/hr, intravenous, Continuous, Starting on Sat07/29/19 at 0645, Pre-Op New Bag 07/29/2019 8:21 AM X RAY CONTROL EQUIPMENT REPAIRER New Bag 07/29/2019 6:38 AM X RAY CONTROL EQUIPMENT REPAIRER 30 mL/hr 30 mL/hr documented in this encounter Active and Recently Administered Medications Times are shown in X RAY CONTROL EQUIPMENT REPAIRER. Continuous Medication Order 07/27/2019 07/28/2019 07/29/2019 Lactated Ringer's (LR) infusion (CANCELED) 30 mL/hr, intravenous, Continuous, Starting on Sat07/29/19 at 0645, Pre-Op 0638 (New Bag - Prov ider: Penelope Sims RN)0821 (New Bag - Provider: Manny Lopez CRNA)0835 (Stopped - Provider: Manny Lopez CRNA) PRN Medication Order 07/27/2019 07/28/2019 07/29/2019 bupivacaine (MARCAINE) 0.25 % (2.5 mg/mL) preservative free injection (CANCELED) As needed, Starting on Sat07/29/19 at 0837, Intra-Op 0837 (Given - Provid er: Thea Reeves MD) haloperidol (HALDOL) injection 0.5 mg 0.5 mg, intravenous, Administer over 5 Minutes, Once as needed, nausea, vomiting, Starting on Sat07/29/19 at 0843, For 1 dose, Phase I HYDROmorphone (DILAUDID) injection 0.2 mg 0.2 mg, intravenous, Administer over 2 Minutes, Every 10 min PRN, 1st line for pain, Starting on Sat07/29/19 at 0843, Phase I, Switch to 2nd line analgesic order if pain is uncontrolled or increasing after 2 doses. Notify Anesthesiologist if total PACU dose reaches 2 mg and pain score 5/10 or more., Indications: Pain HYDROmorphone (DILAUDID) injection 0.4 mg 0.4 mg, intravenous, Administer over 2 Minutes, Every 10 min PRN, 2nd line for pain, Starting on Sat07/29/19 at 0843, Phase I, May administer 10 mintes after 2nd dose of 1st line analgesic agent for uncontrolled or increasing pain. Revert to 1st line dose if POSS of 3. Notify Anesthesiologist if total PACU dose reaches 2 mg and pain score 5/10 or more., Indications: Pain naloxone (NARCAN) 0.4 mg/mL injection 0.04-0.4 mg 0.04-0.4 mg, intravenous, Once as needed, other, excessive sedation/respiratory depression, Starting on Sat07/29/19 at 0843, For 1 dose, Phase I, Dilute 0.4 mg with 9 mL NS (final concentration 0.04 mg/mL). For respiratory depression (respiratory rate less than 6), administer 0.4 mg IVP over 30 seconds. For excessive sedation administer 0.04 mg (1 mL) every 1 minute until desired level of alertness. For IV, administer over 30 seconds., Indications: Opioid Toxicity sodium chloride 0.9 % irrigation (CANCELED) As needed, Starting on Sat07/29/19 at 0837, Intra-Op 0837 (Given - Provid er: Thea Reeves MD) sodium chloride 0.9% flush 0.5-20 mL 0.5-20 mL, intra-catheter, As needed, line care, Starting on Sat07/29/19 at 0607, Pre-Op, Flush volume based on line type and size. Flush before and after each use. documented in this encounter Orders Medications Ordered That Brett ht Not Have Been Administered Count Last Ordered Date First Ordered Date bupivacaine (MARCAINE) 0.25 % (2.5 mg/mL) preservative free injection 07/29/2019 haloperidol (HALDOL) injection 0.5 mg 1 HYDROmorphone (DILAUDID) injection 0.2 mg 07/29/2019 HYDROmorphone (DILAUDID) injection 0.4 mg 1 07/29/2019 naloxone (NARCAN) 0.4 mg/mL injection 0.04-0.4 mg 1 07/29/2019 sodium chloride 0.9 % irrigation 07/29/19 sodium chloride 0.9% flush 0.5-20 mL 07/09 documented in this encounter Care Teams Optical Goods Drilling Machine Operator Relationship Specialty Start Date End Date Julio César Briseno MD PCP - General 10/01/16 Eren Cr MD Referring Physician Medical Oncology 11/25/18 Yohana Bowen MD Radiation Oncologist Radiation Oncology 11/25/18 documented as of this encounter
--- OUTSIDE RECORDS SUMMARY | 2024-06-25 22:33 | XMS_ITS | Encounter Summary ---
Author Organization [facility] Address [address] [place] [address] Phone Care Team Providers Care Merchant Banker Name Role Phone Julio César Briseno MD Primary Care Provider Eren Cr MD Unavailable [phone] Yohana Bowen MD Unavailable Encounter Details Date Type Department Care Team (Late st Contact Info) Description 08/04/2019 Orders Only [facility] Oncology [address] [place] [address] Sola Heredia Social History Tobacco Use Types Packs/Day Years Used Date Smoking Tobacco: Never Smokeless Tobacco: Never Alcohol Use Standard Drinks/Week Comments Yes 1 (1 standard drink = 0.6 oz pur e alcohol) Comments No Sex and Gender Information Value Date Recorded Sex Assigned at Not on file Legal Sex Female 2:41 PM INSULATOR TESTER Gender Identity Not on file Sexual Orientation Straight 02/19/2021 9: 29 AM CDT Occupation Industry Job Start Date Job End Date retired Not on file Not on file Not on file documented as of this encounter Plan of Treatment Not on file documented as of this encounter Visit Diagnoses Not on filedocumented in this encounter Care Teams Merchant Banker Relationship Specialty Start Date End Date Julio César Briseno MD PCP - General 10/01/16 Eren Cr MD Referring Physician Medical Oncology 11/25/18 Yohana Bowen MD Radiation Oncologist Radiation Oncology 11/25/18 documented as of this encounter
--- OUTSIDE RECORDS SUMMARY | 2024-06-25 22:33 | XMS_ITS | Encounter Summary ---
Author Organization [facility] Address [address] [place] [address] Phone Care Team Providers Care Window Maker Name Role Phone Julio César Briseno MD Primary Care Provider [phone] Eren Cr MD Unavailable [phone] Yohana Bowen MD Unavailable Reason for Visit * Episode Based Medications (Routine) - Authorized Specialty Diagnoses / Procedures Referred By Evelyne t Referred To Contact Oncology Diagnoses Neuroendocrine carcinoma (HCC) Malignant neoplasm metastatic to liver (HCC) Procedures IN OCTREOTIDE INJECTION, DEPOT Octreotide 28 Day Cycles - Carcinoid Eren Cr MD [address] [facility] [address] [place] [address] Phone: tel: fax: [facility] [address] [address] Phone: tel: fax: Referral ID Status Reason Start Date Expiration Date V isits Requested Visits Authorized [id number] Authorized 11/28/2017 02/05/2025 1 150 Encounter Details Date Type Department Care Team (Late st Contact Info) Description 08/05/2019 3:00 PM 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 PROTECTION SPECIALIST Infusion [facility] Oncology 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) Social History Tobacco Use Types Packs/Day Years Used Date Smoking Tobacco: Never Smokeless Tobacco: Never Alcohol Use Standard Drinks/Week Comments Yes 1 (1 standard drink = 0.6 oz pur e alcohol) Comments No Sex and Gender Information Value Date Recorded Sex Assigned at Not on file Legal Sex Female 2:41 PM 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 PROTECTION SPECIALIST Gender Identity Not on file Sexual Orientation Straight 02/19/2021 9: 29 AM CDT Occupation Industry Job Start Date Job End Date retired Not on file Not on file Not on file documented as of this encounter Last Filed Vital Signs Vital Sign Reading Time Taken Comments Blood Pressure 158/79 08/05/2019 12:50 PM 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 PROTECTION SPECIALIST Pulse 77 08/05/2019 12:50 PM 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 PROTECTION SPECIALIST Temperature 36.7 ??C (98.1 ??F) 08/05/2019 12:[address] Respiratory Rate 18 08/05/2019 12:50 PM 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 PROTECTION SPECIALIST Oxygen Saturation 97% 08/05/2019 12:50 PM 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 PROTECTION SPECIALIST Inhaled Oxygen Concentration - - Weight - - Height - - Body Mass Index - - documented in this encounter Nursing Notes * Brooklyn Sims RN - 08/05/2019 3:00 PM CST Patient tolerated octreotide injection well. Discharged ambulatory with . RONMENTAL PROTECTION SPECIALIST documented in this encounter Plan of [...] 30 mg 30 mg, intramuscular, Once, On Sat08/05/19 at 1315, For 1 dose, Refrigerate. For IM administration only. 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),Neuroendocrine carcinoma (HCC) Given 08/05/2019 1:00 PM 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 PROTECTION SPECIALIST 30 mg Left Dorsogluteal/Butt ock documented in this encounter Orders Medications Ordered That Brett ht Not Have Been Administered Count Last Ordered Date First Ordered Date octreotide LAR (SandoSTATIN LAR) extended release intramuscular injection 30 mg 1 08/05/2019 Appointment Requests Count Last Ordered Date Fi rst Ordered Date ONCBCN INJECTION APPOINTMENT REQUEST 1 07/09 documented in this encounter Care Teams Window Maker Relationship Specialty Start Date End Date Julio César Briseno MD PCP - General 10/01/16 Eren Cr MD Referring Physician Medical Oncology 11/25/18 Yohana Bowen MD Radiation Oncologist Radiation Oncology 11/25/18 documented as of this encounter
--- OUTSIDE RECORDS SUMMARY | 2024-06-25 22:33 | XMS_ITS | Encounter Summary ---
Author Organization [facility] Address [address] [place] [address] Phone Care Team Providers Care Scoop Operator Name Role Phone Julio César Briseno MD Primary Care Provider [phone] Eren Cr MD Unavailable [phone] Yohana Bowen MD Unavailable Encounter Details Date Type Department Care Team (Late st Contact Info) Description 08/04/2019 Orders Only [facility] Oncology [address] [place] [address] Sabrina Willard, LOW VISION THERAPIST [address] [place], [place] [id number] Social History Tobacco Use Types Packs/Day Years Used Date Smoking Tobacco: Never Smokeless Tobacco: Never Alcohol Use Standard Drinks/Week Comments Yes 1 (1 standard drink = 0.6 oz pur e alcohol) Comments No Sex and Gender Information Value Date Recorded Sex Assigned at Not on file Legal Sex Female 2:41 PM SHIFT FOREMAN Gender Identity Not on file Sexual Orientation Straight 02/19/2021 9: 29 AM CDT Occupation Industry Job Start Date Job End Date retired Not on file Not on file Not on file documented as of this encounter Plan of Treatment Not on file documented as of this encounter Visit Diagnoses Not on filedocumented in this encounter Care Teams Scoop Operator Relationship Specialty Start Date End Date Julio César Briseno MD PCP - General 10/01/16 Eren Cr MD Referring Physician Medical Oncology 11/25/18 Yohana Bowen MD Radiation Oncologist Radiation Oncology 11/25/18 documented as of this encounter
--- OUTSIDE RECORDS SUMMARY | 2024-06-25 22:33 | XMS_ITS | Encounter Summary ---
Author Organization [facility] Healthcare Address [address] [place] [address] Care Team Providers Care Tractor Mechanic Name Role Phone Julio César Briseno MD Primary Care Provider [phone] Eren Cr MD Unavailable [phone] Yohana Bowen MD Unavailable Encounter Details Date Type Department Care Team (Late st Contact Info) Description 08/05/2019 Orders Only [facility] Advanced Medicine Radiation Oncology [address] [facility] [place] [address] Hien Soto RN Social History Tobacco Use Types Packs/Day Years Used Date Smoking Tobacco: Never Smokeless Tobacco: Never Alcohol Use Standard Drinks/Week Comments Yes 1 (1 standard drink = 0.6 oz pur e alcohol) Comments No Sex and Gender Information Value Date Recorded Sex Assigned at Not on file Legal Sex Female 2:41 PM FAMILY PRACTICE MEDICAL DOCTOR Gender Identity Not on file Sexual Orientation [...] or vomiting 20 tablet 3 08/05/2019 3 documented in this encounter Plan of Treatment Not on file documented as of this encounter Visit Diagnoses Not on filedocumented in this encounter Care Teams Tractor Mechanic Relationship Specialty Start Date End Date Julio César Briseno MD PCP - General 10/01/16 Eren Cr MD Referring Physician Medical Oncology 11/25/18 Yohana Bowen MD Radiation Oncologist Radiation Oncology 11/25/18 documented as of this encounter
--- OUTSIDE RECORDS SUMMARY | 2024-06-25 22:33 | XMS_ITS | Encounter Summary ---
Author Organization [facility] Address [address] [place] [address] Phone Care Team Providers Care Film Editor Name Role Phone Julio César Briseno MD Primary Care Provider [phone] Eren Cr MD Unavailable [phone] Yohana Bowen MD Unavailable Reason for Visit * Auth/Cert Specialty Diagnoses / Procedures Referred By Evelyne t Referred To Contact Referral ID Status Reason Start Date Expiration Date Visits Re quested Visits Authorized [id number] 1 Encounter Details Date Type Department Care Team (Latest Contact Info) Description 06/16/2019 1:00 AM DIRECTOR OF CAREER SERVICES Home Care Visit [facility] [address] [address] [address] [place] [address] Anne-Marie Goldstein OT OT DISCIPLINE DISCHARGE Social History Tobacco Use Types Packs/Day Years Used Date Smoking Tobacco: Never Smokeless Tobacco: Never Alcohol Use Standard Drinks/Week Comments Yes 1 (1 standard drink = 0.6 oz pur e alcohol) Comments No Sex and Gender Information Value Date Recorded Sex Assigned at Not on file 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 OF CAREER SERVICES Gender Identity Not on file Sexual Orientation Straight 02/19/2021 9: 29 AM CDT Occupation Industry Job Start Date Job End Date retired Not on file Not on file Not on file documented as of this encounter Plan of Treatment Not on file documented as of this encounter Visit Diagnoses Not on filedocumented in this encounter Home Health Visit - Actions and Narratives Actions OT called pt to check on nee d for further OT visits. Pt reports she is doing ostomy changes herself and reports no further need for visits from OT. Pt agrees to phone discharge. documented in this encounter Care Teams Film Editor Relationship Specialty Start Date End Date Julio César Briseno MD PCP - General 10/01/16 Eren Cr MD Referring Physician Medical Oncology 11/25/18 Yohana Bowen MD Radiation Oncologist Radiation Oncology 11/25/18 documented as of this encounter
--- OUTSIDE RECORDS SUMMARY | 2024-06-25 22:33 | XMS_ITS | Encounter Summary ---
Author Organization [facility] Address [address] [facility] [place] [address] Phone Care Team Providers Care Warp Bleaching Vat Tender Name Role Phone Julio César Briseno MD Primary Care Provider [phone] Eren Cr MD Unavailable [phone] Yohana Bowen MD Unavailable Reason for Visit * Reason Comments neuroendocrine carcinoma colostomy in place Encounter Details Date Type Department Care Team (Late st Contact Info) Description 06/18/2019 2:15 PM CERAMIC DESIGN ENGINEER Office Visit [facility] Surgery [address] [facility] 2nd [address] [place] [address] Greyson Reeves MD [address] [facility] [phone] [place] 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) (Primary Dx); Neuro-endocrine carcinoma (CMS/HCC) Social History Tobacco Use Types Packs/Day Years Used Date Smoking Tobacco: Never Smokeless Tobacco: Never Alcohol Use Standard Drinks/Week Comments Yes 1 (1 standard drink = 0.6 oz pur e alcohol) Comments No Sex and Gender Information Value Date Recorded Sex Assigned at Not on file Legal Sex Female 2:41 PM CERAMIC DESIGN ENGINEER Gender Identity Not on file Sexual Orientation Straight 02/19/2021 9: 29 AM CDT Occupation Industry Job Start Date Job End Date retired Not on file Not on file Not on file documented as of this encounter Last Filed Vital Signs Vital Sign Reading Time Taken Comments Blood Pressure 130/72 06/18/2019 2:18 PM CERAMIC DESIGN ENGINEER Pulse 81 06/18/2019 2:18 PM CERAMIC DESIGN ENGINEER Temperature 36.7 ??C (98 ??F) 06/18/2019 2:18 PM CERAMIC DESIGN ENGINEER Respiratory Rate - - Oxygen Saturation 95% 06/18/2019 2:18 PM CERAMIC DESIGN ENGINEER Inhaled Oxygen Concentration - - Weight 76.9 kg (169 lb 8 oz) 06/18/2019 2:18 PM CERAMIC DESIGN ENGINEER Height 160 cm (5' 3 ) 06/18/2019 2:18 PM CERAMIC DESIGN ENGINEER Body Mass Index 30.03 06/18/2019 2:18 PM CERAMIC DESIGN ENGINEER documented in this encounter Progress Notes * Greyson Reeves MD - 06/18/2019 2:15 PM CST Colorectal Surgery Clinic Visit Chief Complaint: La Chung is a 68 y.o. 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 Her postoperative course was notable for difficulty with pouching of her stoma and readmission for a wound related issue. However recently she is doing quite well and is able to keep her appliance on for 4 days. She feels that she is back to normal with good bowel function good appetite and good energy level. She has no other complaints this time and she has resumed her chemotherapy. Past Medical History: Diagnosis Date ??? Cancer [...] > 5 YEARS N/A 06/09/2019 ? ? HI REMOVAL OF TONSILS,<12 Y/O Tonsillectomy - (Added by TW Conv) ??? HI TOTAL ABDOM HYSTERECTOMY Hysterectomy - (Added by TW Conv) HOME MEDICATIONS : ascorbic acid, vitamin C, 500 mg capsule cholecalciferol (VITAMIN D-3) 2,000 unit capsule clotrimazole-betamethasone (LOTRISONE) cream coenzyme B36-mgrwpmj E (CO Q-10, WITH VIT E,) 100-5 mg-unit capsule DULoxetine DR (CYMBALTA) 30 mg capsule fluticasone propionate (FLONASE) 50 mcg/actuation nasal spray hydrocortisone (PROCTOSOL HC) 2.5 % rectal cream montelukast (SINGULAIR) 10 mg tablet olmesartan-hydrochlorothiazide (BENICAR HCT) 20-12.5 mg per tablet oxybutynin (DITROPAN) [address] (PROTONIX) 40 mg EC tablet simvastatin (ZOCOR) 20 mg tablet oxyCODONE (ROXICODONE) 5 mg immediate release tablet Allergies Allergen Reactions ??? Ezetimibe-Simvastatin Muscle [...] HPI and scanned media. Vitals: Vitals BP 130/72 Pulse 81 Temp 36.7 ??C (98 ??F) Ht 160 cm (5' 3 ) Wt 76.9 kg (169 lb 8 oz) SpO2 95% BMI 30.03 kg/m?? Physical exam: GENERAL EXAM Appearance - well developed, well nourished Orientation - alert and oriented x 3 Eyes - anicteric Ears, mouth and nose: Normal Neurologic: Non-focal motor function Pulmonary: Non-labored breathing, no audible wheezing Integumentary: No rashes Musculoskeletal: No gross bony deformities Abdomen -- Soft nontender, nondistended, no masses. Midline incision is well healed with no hernia.Left lower quadrant colostomy is pink viable and function Assessment: La Chung is a 68 y.o. female with history of metastatic neuroendocrine tumor and creation of diverting colostomy Plan: She will return to clinic p.r.n.. She knows that if she has issues with her stoma that she can callDarling Garcia our enterostomal therapists for assistance. Greyson Reeves MD 06/18/2019 3:30 PM MIC DESIGN ENGINEER documented in this encounter Plan of Treatment Not on file documented as of this encounter Visit Diagnoses Diagnosis 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)- Primary Colostomy status Neuro-endocrine carcinoma (HCC) Other malignant neoplasm of unspecified site documented in this encounter Care Teams Warp Bleaching Vat Tender Relationship Specialty Start Date End Date Julio César Briseno MD PCP - General 10/01/16 Eren Cr MD Referring Physician Medical Oncology 11/25/18 Yohana Bowen MD Radiation Oncologist Radiation Oncology 11/25/18 documented as of this encounter
--- OUTSIDE RECORDS SUMMARY | 2024-06-25 22:33 | XMS_ITS | Encounter Summary ---
Author Organization [facility] Address [address] [place] [address] Phone Care Team Providers Care Client Development Consultant Name Role Phone Julio César Briseno MD Primary Care Provider [phone] Eren Cr MD Unavailable [phone] Yohana Boewn MD Unavailable Encounter Details Date Type Department Care Team (Late st Contact Info) Description 09/24/2019 Orders Only [facility] Oncology [address] [place] [address] Sola Heredia Social History Tobacco Use Types Packs/Day Years Used Date Smoking Tobacco: Never Smokeless Tobacco: Never Alcohol Use Standard Drinks/Week Comments Yes 1 (1 standard drink = 0.6 oz pur e alcohol) Comments No Sex and Gender Information Value Date Recorded Sex Assigned at Not on file Legal Sex Female 2:41 PM DESIGNER WRITER Gender Identity Not on file Sexual Orientation Straight 02/19/2021 9: 29 AM CDT Occupation Industry Job Start Date Job End Date retired Not on file Not on file Not on file documented as of this encounter Ordered Prescriptions Prescription Sig Dispense Quantity Refills Last Filled Start Date End Date gabapentin (NEURONTIN) 300 mg capsule Take 1 capsule nightly for 7 days, then take 1 capsule twice daily for 7 days, then take 1 capsule three times daily thereafter 111 capsule 3 09/24/2019 0 documented in this encounter Plan of Treatment Not on file documented as of this encounter Visit Diagnoses Not on filedocumented in this encounter Discontinued Medications Medication Sig Discontinue Reason Start Date End Da te gabapentin (NEURONTIN) 300 mg capsule Take 1 capsule (300 mg total) by mouth nightly for 7 days, THEN 1 capsule (300 mg total) 2 (two) times a day for 7 days, THEN 1 capsule (300 mg total) 3 (three) times a day. Reorder 09/24/2019 09/24/2019 documented as of this encounter Care Teams Client Development Consultant Relationship Specialty Start Date End Date Julio César Briseno MD PCP - General 10/01/16 Eren Cr MD Referring Physician Medical Oncology 11/25/18 Yohana Bowen MD Radiation Oncologist Radiation Oncology 11/25/18 documented as of this encounter
--- OUTSIDE RECORDS SUMMARY | 2024-06-25 22:33 | XMS_ITS | Encounter Summary ---
Author Organization [facility] Address [address] [place] [address] Phone Care Team Providers Care Director [employer] Name Role Phone Julio César Briseno MD Primary Care Provider Eren Cr MD Unavailable [phone] Yohana Bowen MD Unavailable Encounter Details Date Type Department Care Team (Late st Contact Info) Description 09/01/[address] [facility] Oncology [address] [place] [address] Sabrina Willard, GERMAN TEACHER [address] [place], [place] [id number] Social History Tobacco Use Types Packs/Day Years Used Date Smoking Tobacco: Never Smokeless Tobacco: Never Alcohol Use Standard Drinks/Week Comments Yes 1 (1 standard drink = 0.6 oz pur e alcohol) Comments No Sex and Gender Information Value Date Recorded Sex Assigned at Not on file 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 OF EVENT MANAGEMENT Gender Identity Not on file Sexual Orientation Straight 02/19/2021 9: 29 AM CDT Occupation Industry Job Start Date Job End Date retired Not on file Not on file Not on file documented as of this encounter Plan of Treatment Not on file documented as of this encounter Visit Diagnoses Not on filedocumented in this encounter Care Teams Director [employer]eron[employer] Commission Relationship Specialty Start Date End Date Julio César Briseno MD PCP - General 10/01/16 Eren Cr MD Referring Physician Medical Oncology 11/25/18 Yohana Bowen MD Radiation Oncologist Radiation Oncology 11/25/18 documented as of this encounter
--- OUTSIDE RECORDS SUMMARY | 2024-06-25 22:33 | XMS_ITS | Encounter Summary ---
Author Organization [facility] Healthcare Address [address] [place] [address] Care Team Providers Care Blood Bank Specialist Name Role Phone Julio César Briseno MD Primary Care Provider [phone] Eren Cr MD Unavailable [phone] Yohana Bowen MD Unavailable Encounter Details Date Type Department Care Team (Late st Contact Info) Description 07/29/2019 8:30 AM ASSOCIATE MANAGER AFFILIATE MARKETING - 07/29/2019 9:30 AM ASSOCIATE MANAGER AFFILIATE MARKETING Surgery [facility] Operating Room [address] [place] [address] Thea Reeves MD [address] [facility] [phone] [place] [address] FULGURATION PARASTOMAL EPITHELIAL HYPERPLASIA Surgery Details Date/Time Status Location OR Service Patient Class Case Cl ass Case Type Trauma Case? 07/29/2019 8:30 AM Posted [facility] OR POD 1 331 Colorectal Outpatient Elective Panel 1 Procedure [facility]RB Anes Op Region Wound Class Comments FULGURATION PARASTOMAL EPITHELIAL HYPERPLASIA N/A Monitor Anesthesia Care Abdomen Class III - Contaminated Surgeon Surgeon Role Service Panel Thea Reeves MD Primary Colorectal 1 Bang Maloney MD Fellow Colorectal 1 documented in this encounter Social History Tobacco Use Types Packs/Day Years Used Date Smoking Tobacco: Never Smokeless Tobacco: Never Alcohol Use Standard Drinks/Week Comments Yes 1 (1 standard drink = 0.6 oz pur e alcohol) Comments No Sex and Gender Information Value Date Recorded Sex Assigned at Not on file Legal Sex Female 2:41 PM ASSOCIATE MANAGER AFFILIATE MARKETING Gender Identity Not on file Sexual Orientation Straight 02/19/2021 9: 29 AM CDT Occupation Industry Job Start Date Job End Date retired Not on file Not on file Not on file documented as of this encounter Last Filed Vital Signs Vital Sign Reading Time Taken Comments Blood Pressure 132/78 07/29/2019 9:10 AM ASSOCIATE MANAGER AFFILIATE MARKETING Pulse 87 07/29/2019 9:10 AM ASSOCIATE MANAGER AFFILIATE MARKETING Temperature 36.2 ??C (97.2 ??F) 07/29/2019 8:44 AM CS T Respiratory Rate 20 07/29/2019 9:10 AM ASSOCIATE MANAGER AFFILIATE MARKETING Oxygen Saturation 92% 07/29/2019 9:10 AM ASSOCIATE MANAGER AFFILIATE MARKETING Inhaled Oxygen Concentration - - Weight 77.1 kg (170 lb) 07/29/2019 6:18 AM ASSOCIATE MANAGER AFFILIATE MARKETING Height 160 cm (5' 3 ) 07/29/2019 6:18 AM ASSOCIATE MANAGER AFFILIATE MARKETING Body Mass Index 30.11 07/29/2019 6:18 AM ASSOCIATE MANAGER AFFILIATE MARKETING documented in this encounter Discharge Instructions * Attachments The following attachments cannot be sent through Care Everywhere. * Colostomy Care (Discharge Care) (Slovak) documented in this encounter Medications at Time of Discharge simvastatin (ZOCOR) 20 mg tablet Take 1 tablet (20 mg total) by mouth nightly ascorbic acid, vitamin C, 500 mg capsuleIndications :supplement Take 1 tablet by mouth early years teacher before breakfast 07/04/2016 4 bisacodyl (DULCOLAX) 10 mg suppository Gentle Laxative (bisacodyl) 10 mg rectal suppository USE DIRECTED 0 cholecalciferol (VITAMIN D-3) 2,000 unit capsule Take 1 capsule (2,000 Units total) by mouth daily 30 capsule 2 04/25/2019 3 clotrimazole-betam ethasone (LOTRISONE) cream Apply 1 Application topically daily as needed (rash) 4 coenzyme G23-dlgaqyu E 100-5 mg-unit capsuleIndications :supplement Take 1 tablet by mouth early years teacher before breakfast [address] (CYMBALTA) 30 [...] Thea Reeves MD at 07/29/2019 8:21 AM ASSOCIATE MANAGER AFFILIATE MARKETING CIATE MANAGER AFFILIATE MARKETING CIATE MANAGER AFFILIATE MARKETING Source Note - Caren Boyce MD - 07/29/2019 7:45 AM ASSOCIATE MANAGER AFFILIATE MARKETING Images from the original note were not [...] > 5 YEARS N/A 06/09/2019 ? ? MA REMOVAL OF TONSILS,<12 Y/O [...] a month -- -- Historical Provider, coenzyme N63-wgebrry E (CO Q-10, WITH VIT E,) 100-5 [...] intravenous, Continuous, Last Rate: 30 mL/hr at 07/29/19 0638, 30 mL/hr at 07/29/19 06 ??? sodium [...] Medication protocol when under care of a CABLEWAY OPERATOR Planned anesthesia: General Team communication plan: oral ET tube Induction: Induction: intravenous and RSI. Postoperative Plan: Postoperative administration opioids intended. No postoperative mechanical ventilation intended. Patient's planned disposition post procedure is Outpatient. Informed Consent: Discussed plan with CABLEWAY OPERATOR. Anesthesia plan and risks discussed with patient. Consent and Attending signature: I and/or my designee have discussed the anesthesia plan, benefits, possible alternatives, parental presence at time of induction (if indicated), and clinically relevant risks that may include dental injury, unintentional awareness, and/or other complications. The patient and/or parent/legal guardian understand, and agree to proceed. All questions answered. CIATE MANAGER AFFILIATE MARKETING documented in this encounter Miscellaneous Notes * Op Note - Thea Reeves MD - 07/29/2019 8:27 AM CST SURGEON Thea Reeves MD TRACK FITTER: Renzo Maloney PREOPERATIVE DIAGNOSIS:Hypertrophic epithelial hyperplasia of [...] for the entire case. THEA REEVES M.D. CIATE MANAGER AFFILIATE MARKETING documented in this encounter Plan of Treatment Not on file documented as of this encounter Procedures Procedure Name Priority Date/Time Associated Diagnosis Comments FULGURATION PARASTOMAL EPITHELIAL HYPERPLASIA 07/29/2019 8:24 AM ASSOCIATE MANAGER AFFILIATE MARKETING 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) Epithelial hyperplasia documented in this encounter Visit Diagnoses Diagnosis 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) Colostomy status Epithelial hyperplasia Other specified disorder of skin 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) Colostomy status [...] preservative free injection As needed, Starting on Sat07/29/19 at 0837, Intra-Op Given 07/29/2019 8:37 AM ASSOCIATE MANAGER AFFILIATE MARKETING 20 mL Abdominal Tissue Lactated Ringer's (LR) infusion 30 mL/hr, intravenous, Continuous, Starting on Sat07/29/19 at 0645, Pre-Op New Bag 07/29/2019 8:21 AM ASSOCIATE MANAGER AFFILIATE MARKETING New Bag 07/29/2019 6:38 AM ASSOCIATE MANAGER AFFILIATE MARKETING 30 mL/hr 30 mL/hr sodium chloride 0.9 % irrigation As needed, Starting on Sat07/29/19 at 0837, Intra-Op Given 07/29/2019 8:37 AM ASSOCIATE MANAGER AFFILIATE MARKETING 1,000 mL Surgical Site documented in this encounter Active and Recently Administered Medications Times are shown in ASSOCIATE MANAGER AFFILIATE MARKETING. Continuous Medication Order 07/27/2019 07/28/2019 07/29/2019 Lactated [...] Count Last Ordered Date First Ordered Date haloperidol (HALDOL) injection 0.5 mg 1 HYDROmorphone (DILAUDID) injection 0.2 mg 07/29/2019 HYDROmorphone (DILAUDID) injection 0.4 mg 07/29/2019 naloxone (NARCAN) 0.4 mg/mL injection 0.04-0.4 mg 1 07/29/2019 sodium chloride 0.9% flush 0.5-20 mL 07/09 documented in this encounter Care Teams Blood Bank Specialist Relationship Specialty Start Date End Date Julio César Briseno MD PCP - General 10/01/16 Eren Cr MD Referring Physician Medical Oncology 11/25/18 Yohana Bowen MD Radiation Oncologist Radiation Oncology 11/25/18 documented as of this encounter
--- OUTSIDE RECORDS SUMMARY | 2024-06-25 22:33 | XMS_ITS | Encounter Summary ---
Author Organization [facility] Address [address] [place] [address] Phone Care Team Providers Care Senior Controller Name Role Phone Julio César Briseno MD Primary Care Provider Eren Cr MD Unavailable [phone] Yohana Bowen MD Unavailable Encounter Details Date Type Department Care Team (Late st Contact Info) Description 09/21/2019 Orders Only [facility] Surgery [address] [facility] 8th [place] [address] [place] [address] Greyson Reeves MD [address] [facility] [phone] [place] [address] Social History Tobacco Use Types Packs/Day Years Used Date Smoking Tobacco: Never Smokeless Tobacco: Never Alcohol Use Standard Drinks/Week Comments Yes 1 (1 standard drink = 0.6 oz pur e alcohol) Comments No Sex and Gender Information Value Date Recorded Sex Assigned at Not on file Legal Sex Female 2:41 PM BODY FINISHER Gender Identity Not on file Sexual Orientation Straight 02/19/2021 9: 29 AM CDT Occupation Industry Job Start Date Job End Date retired Not on file Not on file Not on file documented as of this encounter Ordered Prescriptions Prescription Sig Dispense Quantity Refills Last Filled Start Date End Date ostomy supplies misc Patient has colostomy and needs Cavilon 3M skin barrier film to manage. 20 each 6 09/21/2019 documented in this encounter Plan of Treatment Not on file documented as of this encounter Visit Diagnoses Not on filedocumented in this encounter Care Teams Senior Controller Relationship Specialty Start Date End Date Julio César Briseno MD PCP - General 10/01/16 Eren Cr MD Referring Physician Medical Oncology 11/25/18 Yohana Bowen MD Radiation Oncologist Radiation Oncology 11/25/18 documented as of this encounter
--- OUTSIDE RECORDS SUMMARY | 2024-06-25 22:33 | XMS_ITS | Encounter Summary ---
Author Organization [facility] Healthcare Address [address] [place] [address] Care Team Providers Care Train Dispatcher Name Role Phone Julio César Briseno MD Primary Care Provider [phone] Eren Cr MD Unavailable [phone] Yohana Bowen MD Unavailable Encounter Details Date Type Department Care Team (Late st Contact Info) Description 07/29/2019 8:21 AM HAND [employer] Anesthesia Event [facility] Operating Room [address] [place] [address] Caren Boyce MD [address] [facility] [address] [place] [address] Anesthesia Record Procedure Summary Procedure Name Responsible Anesthesiologist Anesthesia Start Time Anesthesia Stop Time FULGURATION PARASTOMAL EPITHELIAL HYPERPLASIA (Abdomen) Caren Boyce MD 07/29/19 0821 07/29/19 0846 Events Date Time Event Comment 07/29/2019 0746 0821 An Start 0821 An Start Data 0824 In Room 0830 Anesthesia Ready 0835 Proc Start 0835 Incision Start 0837 Proc Fin 0842 an stop data 0842 Out of Room 0846 Handoff to RN I completed my handoff [...] disposition at the time of handoff: PACU 0846 An Stop Meds Name Total midazolam PF 2 mg lidocaine 1 % PF 50 mg fentaNYL 100 mcg propofol 40 mg ondansetron PF (ZOFRAN) 2 mg/mL injectio n 4 mg famotidine PF 20 mg Lactated Ringer's (LR) infusion 500 mL * Agents Name O2% N2O O2 Sevoflurane Inspired Sevoflurane * Blood No blood administrations on file. Lines, Drains, and Airways Type Details Placement Removal Colostomy Retired 04/13/19; 182; End; RLQ 04/13/19 182 by Thais Julio RN RETIRED Surgical Site 04/13/19; 1555; Abdomen; wound/ostomy following last assessment 04/28/19; 06/09/24 (Retired LDA, Removed/Completed by [facility] with LDA Utility); 1213 (Retired LDA, Removed/Completed by [facility] with LDA Utility) 04/13/19 1555 by Adelita Barba RN 06/09/24 1213 by Discharge Provider, Automatic RETIRED Surgical Site 05/06/19; No; Mid-line; Abdomen; distal; 06/09/24 (Retired LDA, Removed/Completed by [facility] with LDA Utility); 1213 (Retired LDA, Removed/Completed by [facility] with LDA Utility) 05/06/19 0000 by Misa Barrow RN 06/09/24 1213 by Discharge Provider, Automatic Peripheral IV Placement Date: 07/29/19; Placement Time: 636; Catheter Size: 20 G; Orientation: Left; Location: Wrist; Site Prep: Chlorhexidine; Inserted by: nikki; Insertion Attempts: 1; Patient Tolerance: Tolerated well; Removal Date: 07/29/19; Removal Time: 92407/29/19 0637 by Penelope Sims RN 07/29/19 09 by Marlen Philip, [place] documented in this encounter Social History Tobacco Use Types Packs/Day Years Used Date Smoking Tobacco: Never Smokeless Tobacco: Never Alcohol Use Standard Drinks/Week Comments Yes 1 (1 standard drink = 0.6 oz pur e alcohol) Comments No Sex and Gender Information Value Date Recorded Sex Assigned at Not on file Legal Sex Female 2:41 PM HAND [employer] Gender Identity Not on file Sexual Orientation Straight 02/19/2021 9: 29 AM CDT Occupation Industry Job Start Date Job End Date retired Not on file Not on file Not on file documented as of this encounter OR Notes * Anesthesia Postprocedure Evaluation - Caren Boyce MD - 07/29/2019 8:52 AM CST Patient: La Chung Procedure Summary Date: 07/29/19 Room / Location: [facility] OR [facility]OD 1 ROOM 331 / [facility] 1 Anesthesia Start: 820 Anesthesia Stop: 845 Procedure: FULGURATION PARASTOMAL EPITHELIAL HYPERPLASIA (N/A Abdomen) 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) Epithelial hyperplasia (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) [Z93.3]) (Epithelial hyperplasia [L85.9]) Surgeon: Greyson Reeves MD Responsible Provider: Caren Boyce MD Anesthesia Type: general ASA Status: 2 Anesthesia Type: general Last vitals BP (!) 172/84 (BP Location: Left arm) Pulse 80 Temp 36.2 ??C (97.2 ??F) Resp 15 SpO2 94% Anesthesia Post Evaluation Patient location during evaluation: PACU Patient participation: complete - patient participated Level of consciousness: follows simple commands and fully awake Pain score: 2 Pain management: adequate Airway patency: adequate Evidence of recall: no Anesthetic complications: no Cardiovascular status: acceptable and hemodynamically stable Respiratory status: acceptable and room air Hydration status: acceptable Pt is: normothermic Nausea/Vomiting status: none Comments: Pt is comfortable and stable to go home BP (!) 172/84 (BP Location: Left arm) Pulse 80 Temp 36.2 ??C (97.2 ??F) Resp 15 kg (170 lb) SpO2 94% [employer] * Anesthesia Preprocedure Evaluation - Caren Boyce MD - 07/29/2019 7:45 AM CST Images from the original note [...] GALLBLADDER SURGERY Gallbladder Surgery - (Added by Conv) ? ? IR PICC LINE PLACEMENT > 5 YEARS N/A 12/23/2018 ? ? IR PICC LINE PLACEMENT > 5 YEARS N/A 02/17/2019 ? ? IR PICC LINE PLACEMENT > 5 YEARS N/A 06/09/2019 ? ? CA REMOVAL OF TONSILS,<12 Y/O Tonsillectomy - (Added by TW Conv) ??? CA TOTAL ABDOM HYSTERECTOMY Hysterectomy - (Added by [...] a month -- -- Historical Provider, coenzyme [id number] (CO Q-10, WITH VIT E,) 100-5 mg-unit capsule 07/28/2019 -- -- Historical Provider, DULoxetine (CYMBALTA) 30 mg capsule 07/28/2019 04/24/19 -- [...] Patient not taking: Reported on 06/18/2019 pantoprazole (PROTONIX) 40 mg EC tablet Past Week 05/12/19 -- Historical Provider, simvastatin (ZOCOR) 20 mg tablet 07/28/2019 -- -- Historical Provider, Current Facility-Administered Medications: ??? Lactated Ringer's (LR) infusion, 30 mL/hr, intravenous, Continuous, Last Rate: 30 mL/hr at 07/29/19 0638, 30 mL/hr at 07/29/19 0638 ??? sodium chloride 0.9% flush 0.5-20 mL, [...] Medication protocol when under care of a DENTAL SERVICE TECHNICIAN Planned anesthesia: General and MAC Induction: Induction: intravenous. Postoperative Plan: Postoperative administration opioids intended. No postoperative mechanical ventilation intended. Patient's planned disposition post procedure is Outpatient. Informed Consent: Discussed plan with DENTAL SERVICE TECHNICIAN. Anesthesia plan and risks discussed with patient. Consent and Attending signature: I and/or my designee have discussed the anesthesia plan, benefits, possible alternatives, parental presence at time of induction (if indicated), and clinically relevant risks that may include dental injury, unintentional awareness, and/or other complications. The patient and/or parent/legal guardian understand, and agree to proceed. All questions answered. [employer]ER [employer]ER documented in this encounter Plan of Treatment Not on file documented as of this encounter Visit Diagnoses Not on filedocumented in this encounter Administered Medications Inactive Administered Medications - up to 3 most recent administrations Medication Order MAR Action Action Date Dose Rate Site famotidine (PEPCID) injection Administer over 2 Minutes, As needed, Starting on Sat07/29/19 at 0831, Anesthesia Intra-op Given 07/29/2019 8:31 AM HAND [employer] 20 mg fentaNYL (SUBLIMAZE) preservative free injection intravenous, As needed, Starting on Sat07/29/19 at 0826, Anesthesia Intra-op Given 07/29/2019 8:26 AM HAND [employer] 100 mcg Lactated Ringer's (LR) infusion 30 mL/hr, intravenous, Continuous, Starting on Sat07/29/19 at 0645, Pre-Op New Bag 07/29/2019 8:21 AM HAND [employer] New Bag 07/29/2019 6:38 AM HAND [employer] 30 mL/hr 30 mL/hr lidocaine PF (XYLOCAINE) 10 mg/mL (1 %) preservative free injection As needed, Starting on Sat07/29/19 at 0826, Anesthesia Intra-op Given 07/29/2019 8:26 AM HAND [employer] 50 mg midazolam (VERSED) preservative free injection intravenous, Administer over 2 Minutes, As needed, Starting on Sat07/29/19 at 0821, Anesthesia Intra-op Given 07/29/2019 8:21 AM HAND [employer] 2 mg ondansetron (ZOFRAN) injection intravenous, Administer over 2 Minutes, As needed, Starting on Sat07/29/19 at 0831, Anesthesia Intra-op Given 07/29/2019 8:31 AM HAND [employer] 4 mg propofol (DIPRIVAN) IV intravenous, As needed, Starting on Sat07/29/19 at 0831, Anesthesia Intra-op Given 07/29/2019 8:35 AM HAND [employer] 20 mg Given 07/29/2019 8:31 AM HAND [employer] 20 mg documented in this encounter Care Teams Train Dispatcher Relationship Specialty Start Date End Date Julio César Briseno MD PCP - General 10/01/16 Eren Cr MD Referring Physician Medical Oncology 11/25/18 Yohana Bowen MD Radiation Oncologist Radiation Oncology 11/25/18 documented as of this encounter
--- OUTSIDE RECORDS SUMMARY | 2024-06-25 22:33 | XMS_ITS | Encounter Summary ---
Author Organization [facility] Address [address] [place] [address] Phone Care Team Providers Care Extension Associate Name Role Phone Julio César Briseno MD Primary Care Provider [phone] Eren rC MD Unavailable Yohana Bowen MD Unavailable Encounter Details Date Type Department Care Team (Late st Contact Info) Description 10/26/2019 Orders Only [facility] On[facility] [address] [facility] [address] [place] [address] [place] [address] Sabrina Willard, EGYPTOLOGIST [address] [place], [place] [id number] Social History Tobacco Use Types Packs/Day Years Used Date Smoking Tobacco: Never Smokeless Tobacco: Never Alcohol Use Standard Drinks/Week Comments Yes 1 (1 standard drink = 0.6 oz pur e alcohol) Comments No Sex and Gender Information Value Date Recorded Sex Assigned at Not on file 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
--- OUTSIDE RECORDS SUMMARY | 2024-06-25 22:33 | XMS_ITS | Encounter Summary ---
Author Organization [facility] [employer] [facility] Address [address] [place] [address] Phone Care Team Providers Care Hat Former Name Role Phone Julio César Briseno MD Primary Care Provider [phone] Eren Cr MD Unavailable [phone] Yohana Bowen MD Unavailable Encounter Details Date Type Department Care Team (Late st Contact Info) Description 08/17/2019 10:30 AM FREIGHT ADJUSTER Office Visit [facility] Oncology 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); Neuro-endocrine carcinoma (CMS/HCC) Social History Tobacco Use Types Packs/Day Years Used Date Smoking Tobacco: Never Smokeless Tobacco: Never Alcohol Use Standard Drinks/Week Comments Yes 1 (1 standard drink = 0.6 oz pur e alcohol) Comments No Sex and Gender Information Value Date Recorded Sex Assigned at Not on file Legal Sex Female 2:41 PM FREIGHT ADJUSTER Gender Identity Not on file Sexual Orientation Straight 02/19/2021 9: 29 AM CDT Occupation Industry Job Start Date Job End Date retired Not on file Not on file Not on file documented as of this encounter Last Filed Vital Signs Vital Sign Reading Time Taken Comments Blood Pressure 148/82 08/17/2019 10:17 AM FREIGHT ADJUSTER Pulse 75 08/17/2019 10:17 AM FREIGHT ADJUSTER Temperature 36.6 ??C (97.9 ??F) 08/17/2019 10:[address] Respiratory Rate 18 08/17/2019 10:17 AM FREIGHT ADJUSTER Oxygen Saturation 97% 08/17/2019 10:17 AM FREIGHT ADJUSTER Inhaled Oxygen Concentration - - Weight 80.5 kg (177 lb 6.4 oz) 08/17/2019 10:17 AM FREIGHT ADJUSTER Height - - Body Mass Index 31.42 07/29/2019 6:18 AM FREIGHT ADJUSTER documented in this encounter Progress Notes * Eren Cr Jr., MD - 08/17/2019 10:30 AM CST Images from the original note were not included. La Chung : 1950 DATE OF VISIT: 08/17/19 Cancer Staging Malignant neoplasm metastatic to liver [...] time, [facility] by [facility] Greyson [...] - Carcinoid Current day: Day 1, Cycle 18 (Planned for 09/02/2019) Following planned day: Day 1, Cycle 19 (Planned for 09/30/2019) Oncology Supportive Care: DENOSUMAB (XGEVA) INJECTION (On Hold) Current treatment: Treatment 2 (Planned for 04/27/2019) Following planned treatment: Treatment 3 (Planned for 05/25/2019) INTERVAL HISTORY Ms. La Chung is a 68 y.o. Non- female with a history of small bowel NEN who presents for follow-up visit. She had her 4th Lutathera 08/05/2019. She has some loose stools in her ostomy bagbut denies flushing. She continues on protonix. Overall, she is feeling well. She states [...] > 5 YEARS N/A 08/04/2019 ? ? KS REMOVAL OF TONSILS,<12 Y/O Tonsillectomy - (Added by TW Conv) ??? KS TOTAL ABDOM HYSTERECTOMY Hysterectomy - (Added by TW Conv) ALLERGIES: Allergies Allergen Reactions ??? Ezetimibe-Simvastatin Muscle pain and Unknown Muscle weakness ??? Ramipril Cough CURRENT MEDICATIONS: Current Outpatient Medications: ??? ascorbic acid, vitamin C, 500 mg capsule, Take 1 tablet by mouth., Disp: , Rfl: ??? bisacodyl (DULCOLAX) 10 mg suppository, Gentle Laxative (bisacodyl) 10 mg rectal suppository USE DIRECTED, Disp: , Rfl: ??? cholecalciferol (VITAMIN D-3) 2,000 unit capsule, Take 1 capsule (2,000 Units total) by mouth daily, Disp: 30 capsule, Rfl: 2 ??? clotrimazole-betamethasone (LOTRISONE) cream, clotrimazole-betamethasone 1 %-0.05 % topical cream APPLY EXTERNALLY TO ABDOMEN TWICE DAILY NEEDED, Disp: , Rfl: ??? coenzyme [id number] E (CO Q-10, WITH VIT E,) 100-5 mg-unit capsule, , Disp: , Rfl: ??? DULoxetine DR (CYMBALTA) 30 mg capsule, Take 1 capsule (30 mg total) by mouth daily, Disp: 30 capsule, Rfl: 2 ??? fluticasone propionate (FLONASE) 50 mcg/actuation nasal spray, fluticasone propionate 50 mcg/actuation nasal spray,suspension, Disp: , Rfl: ??? hydrocortisone (PROCTOSOL HC) 2.5 % rectal cream, Proctosol HC 2.5 % topical cream perineal applicator APPLY RECTALLY THREE TIMES A DAY, Disp: , Rfl: ??? montelukast (SINGULAIR) 10 mg tablet, montelukast [...] vomiting, Disp: 20 tablet, Rfl: 3 ??? oxyCODONE (ROXICODONE) 5 mg immediate release tablet, Take 1 tablet (5 mg total) by mouth every4 (four) hours as needed for pain, Disp: 10 tablet, Rfl: 0 ??? pantoprazole DR (PROTONIX) 40 mg EC tablet, , Disp: , Rfl: ??? simvastatin (ZOCOR) 20 mg tablet, , Disp: , Rfl: ??? oxybutynin (DITROPAN) 5 mg tablet, Take 1 tablet (5 mg total) by mouth 2 (two) times a day for 14 days, Disp: 28 tablet, Rfl: 0 No current facility-administered medications for this visit. Facility-Administered Medications Ordered in Other Visits: ??? L-arginine 1.25%/L-lysine 1.25% infusion 1,000 mL, 1,000 mL, intravenous, Continuous, Meagan Bergeron MD REVIEW OF SYSTEMS: All other systems negative. PHYSICAL EXAMINATION: Performance Status: ECOG 1 Vital signs: Vitals BP 148/82 (BP Location: Left arm) Pulse 75 Temp 36.6 ??C (97.9 ??F) (Oral) Resp 18 Wt 80.5 kg (177 lb 6.4 oz) SpO2 97% BMI 31.42 kg/m?? General: She is a 68 y.o. female and is in no acute [...] No organomegaly or masses palpated. Ostomy in place with semi-formed stool Extremities: No clubbing, cyanosis, or edema. Skin: No rashes or lesions. No nail changes. Neurological: No focal neurological deficits. LABORATORY: Recent Results (from the past 24 hour(s)) Comprehensive metabolic panel Collection Time: 08/17/19 9:40 AM Result Value Ref Range Sodium 143 135 - 145 mmol/L Potassium, pl 4.3 3.3 - 4.9 mmol/L Chloride 108 97 - 110 mmol/L CO2 31 22 - 32 mmol/L Anion gap 4 2 - 15 mmol/L BUN 11 8 - 25 mg/dL Creatinine 0.78 0.60 - 1.10 mg/dL Glucose 122 70 - 199 mg/dL Calcium 10.1 8.5 - 10.3 mg/dL Bilirubin, total 0.4 0.1 - 1.2 mg/dL Protein, pl 6.6 6.5 - 8.5 g/dL Albumin 4.2 3.5 - 5.0 g/dL Alk phos 67 40 - 130 Units/L ALT 13 7 - 45 Units/L AST 23 10 - 45 Units/L CBC with auto differential Collection Time: 08/17/19 9:47 AM Result Value Ref Range WBC 3.5 (L) 3.8 - 9.8 K/cumm Hgb 12.5 12.1 - 15.1 g/dL Hct 36.3 36.1 - 44.3 % Plt 104 (L) 140 - 440 K/cumm MPV 7.6 6.8 - 10.4 fL RBC 3.98 3.90 - 5.00 M/cumm MCV 91.2 80.0 - 97.6 fL MCH 31.3 26.7 - 33.7 pg MCHC 34.4 32.7 - 35.5 g/dL RDW CV 15.0 (H) 11.8 - 14.6 % NRBC abs 0.00 0.00 - 0.01 K/cumm Differential, auto Collection Time: 08/17/19 9:47 AM Result Value Ref Range Neutrophil abs 2.9 1.8 - 6.6 K/cumm Lymphocyte abs 0.1 (L) 1.2 - 3.3 K/cumm Monocyte abs 0.4 0.2 - 1.2 K/cumm Eosinophil abs 0.1 0.0 - 0.5 K/cumm Basophil abs 0.0 0.0 - 0.2 K/cumm Neutrophil pct 81.5 % Lymphocyte pct 3.3 % Monocyte pct 12.4 % Eosinophil pct 2.3 % Basophil pct 0.5 % Hematology Lab History Some values may be hidden. Unless noted otherwise, only the newest values recorded on each date aredisplayed. Labs - Hematology Latest Ref Range 06/10/19 07/20/19 08/05/19 08/17/19 WBC 3.8 - 9.8 K/cumm 4.5 3.7 (A) 4.8 3.5 (A) Total Hb, POC 12.1 - 15.1 g/dL 11.7 (A) 13.0 11.9 12.5 Hct 36.1 - 44.3 % 35.4 (A) 37.7 34.4 (A) 36.3 Plt 140 - 440 K/cumm 124 (A) 100 (A) 110 (A) 104 (A) Neutrophil abs 1.8 - 6.6 K/cumm 3.3 2.9 3.8 2.9 (A) Abnormal value Comments are available for some flowsheets but are not being displayed. Chem/LFT Lab History Some values may be hidden. Unless noted otherwise, only the newest values recorded on each date aredisplayed. Labs-Chem/LFT Latest Ref Range 05/03/19 06/01/19 07/20/19 08/17/19 Sodium 135 - 145 mmol/L 139 142 143 143 Creatinine 0.60 - 1.10 mg/dL 0.60 0.81 0.89 0.78 Bilirubin, total 0.1 - 1.2 mg/dL 0.4 0.7 0.4 AST 10 - 45 Units/L 19 30 23 ALT 7 - 45 Units/L 14 18 13 CrCl- Actual Body Weight (Cockcroft-Gault) 112.5 77.2 73.2 85.3 Tumor Marker History Some values may be hidden. Unless noted otherwise, only the newest values recorded on each date aredisplayed. Tumor Markers Latest Ref Range 03/30/19 04/14/19 06/01/19 07/20/19 Chromogranin A <93 ng/mL 203 (A) 376 (A) 234 (A) Troponin I 0.00 - 0.03 ng/mL <0.03 Some values recorded on this date have been omitted. (A) Abnormal value Comments are available for some flowsheets but are not being displayed. IMAGES IMPRESSION: 06/09/2019 1. Interval postsurgical changes of divided loop colostomy in the left lower quadrant. 2. Large area of phlegmonous change in the anterior abdominal soft tissues just deep the the skin mary. Superiorly, there is an organized fluid collection. 3. Stable metastatic disease along the liver, undersurface of the diaphragm, mesentry and vaginal cuff. ? Dictated by: Minh Tom M.D. IMPRESSION AND PLAN: Ms. La Chung is a 68 y.o. Non- female with small bowel NEN who presents for routine oncologic care. She has completed 4 PRRT and will continue on octreotide and her next one would be in 3 weeks. As she is on protonix which can increase the chromogranin level, I have asked her to see ifshe can be off protonix 1 week prior to chromogranin assay. If she is havung Symptoms off protonix,she should resume and we can cancel the chromogranin test. She is already scheduled ofr scans in October and another PET dotatate in December or January. We again discused the data on PRRT in prolonging time to progression and is not associated with cure. As such we will plan on having La Chung return in 6-8 weeks with labs. All of her questions were answered. She understands and was in agreement with the plan of care. She knows to call the office in the interim with any symptoms, questions, or concerns. GHT ADJUSTER documented in this encounter Plan of Treatment Not on file documented as of this encounter Results * Comprehensive metabolic panel (10/27/2019 11:19 AM CDT) Sodium 138 135 - 145 mmol/L [facility] Comment:Testing performed by : [facility], [address] [place] [phone] Potassium, pl 4.6 3.3 - 4.9 mmol/L [facility] Comment:Testing performed by : [facility], [address] [place] [phone] Chloride 103 97 - 110 mmol/L [facility] Comment:Testing performed by : [facility], [address] [place] [phone] CO2 28 22 - 32 mmol/L [facility] Comment:Testing performed by : [facility], [address] [place] [phone] Anion gap 7 2 - 15 mmol/L [facility] Comment:Testing performed by : [facility], [address] [place] [phone] BUN 15 8 - 25 mg/dL [facility] Comment:Testing performed by : [facility], [address] [place] [phone] Creatinine 0.80 0.60 - 1.10 mg/dL [facility] Comment:Testing performed by : [facility], [address] [place] [phone] Glucose 116 70 - 199 mg/dL [facility] Comment: [...] was last revised 2017. Testing performed by: [place] [id number] Calcium 10.0 8.5 - 10.3 mg/dL [facility] Comment:Testing performed by : [address] [phone] Bilirubin, total 0.8 0.1 - 1.2 mg/dL [facility] Comment:Testing performed by : [address] [phone] Protein, pl 6.9 6.5 - 8.5 g/dL [facility] Comment:Testing performed by : [address] [phone] Albumin 4.4 3.5 - 5.0 g/dL [facility] Comment:Testing performed by : [address] [phone] Alk phos 80 40 - 130 Units/L [facility] Comment:Testing performed by : [address] [phone] ALT 14 7 - 45 Units/L [facility] Comment:Testing performed by : [address] [phone] AST 19 10 - 45 Units/L [facility] Comment:Testing performed by : [address] [phone] Blood specimen (specimen) 10/27/2019 11:19 AM CDT 10/27/2019 11:19 AM CDT us Eren Cr MD LAB BLOOD ORDERABLES Final Re sult [facility] [place] [address] * (ABNORMAL) CBC with auto differential (10/27/2019 11:19 AM CDT) WBC 5.0 3.8 - 9.8 K/cumm [facility] Comment:Testing performed by : [place] [id number] Hgb 12.7 12.1 - 15.1 g/dL [facility] Comment:Testing performed by : [address] [phone] Hct 36.4 36.1 - 44.3 % [facility] Comment:Testing performed by : [facility], [address] [place], [place] [phone] Plt 106(L) 140 - 440 K/cumm [facility] Comment:Testing performed by : [address] [phone] MPV 7.5 6.8 - 10.4 fL [facility] Comment:Testing performed by : [address] [phone] RBC 3.88(L) 3.90 - 5.00 M/cumm [facility] Comment:Testing performed by : [address] [phone] MCV 93.8 80.0 - 97.6 fL [facility] Comment:Testing performed by : [facility], [address] [place] [phone] MCH 32.7 26.7 - 33.7 pg [facility] Comment:Testing performed by : [address] [phone] MCHC 34.9 32.7 - 35.5 g/dL [facility] Comment:Testing performed by : [facility], [address] [facility] [phone] RDW CV 13.9 11.8 - 14.6 % [facility] Comment:Testing performed by : [facility], [address] [facility] [phone] NRBC abs 0.00 0.00 - 0.01 K/cumm [facility] Comment:Testing performed by : [facility], [address] [place] [phone] Blood specimen (specimen) 10/27/2019 11:19 AM CDT 10/27/2019 11:19 AM CDT Eren Cr MD LAB BLOOD ORDERABLES Final Re sult [facility] One [facility] Department [place] [address] * (ABNORMAL) Chromogranin A (10/27/2019 11:19 AM CDT) Chromogranin A 225(H) <93 ng/mL [facility] Comment: Impaired renal or hepatic function or treatment with proton pump inhibitors may result in artifactual elevations of Chromogranin A. ADDITIONAL INFORMATION This test was developed and its performance characteristics determined by [facility] in a manner consistent with CLIA requirements. [...] absence of malignant disease. Test Performed by: [address] [address] Top Lift Compresser: Immanuel Novak M.D. Ph.D.; CLIA# [id number] Blood specimen (specimen) 10/27/2019 11:19 AM CDT 10/27/2019 1:28 PM CDT Eren Cr MD LAB BLOOD ORDERABLES Final Re sult [facility] One [facility] [place] [address] * Comprehensive metabolic panel (09/30/2019 1:58 PM CDT) Sodium 144 135 - 145 mmol/L [facility] Comment:Testing performed by : [facility], [address] [place] [phone] Potassium, pl 4.6 3.3 - 4.9 mmol/L [facility] Comment:Testing performed by : [facility], [address] [place] [phone] Chloride 103 97 - 110 mmol/L [facility] Comment:Testing performed by : [facility], [address] [place] [phone] CO2 27 22 - 32 mmol/L [facility] Comment:Testing performed by : [facility], [address] [place] [phone] Anion gap 14 2 - 15 mmol/L [facility] Comment:Testing performed by : [address] [phone] BUN 12 8 - 25 mg/dL [facility] Comment:Testing performed by : [facility], [address] [place] [phone] Creatinine 0.77 0.60 - 1.10 mg/dL [facility] Comment:Testing performed by : [facility], [address] [place] [phone] Glucose 100 70 - 199 mg/dL [facility] Comment: Interpretive Data Fasting glucose >/= [...] 2017. Testing performed by: [facility], [address] [place] [phone] Calcium 10.1 8.5 - 10.3 mg/dL [facility] Comment:Testing performed by : [facility], [address] [place] [phone] Bilirubin, total 0.4 0.1 - 1.2 mg/dL [facility] Comment:Testing performed by : [facility], [address] [place] [phone] Protein, pl 6.6 6.5 - 8.5 g/dL [facility] Comment:Testing performed by : [address] [phone] Albumin 4.4 3.5 - 5.0 g/dL [facility] Comment:Testing performed by : [facility], [address] [place] [phone] Alk phos 72 40 - 130 Units/L [facility] Comment:Testing performed by : [address] [phone] ALT 13 7 - 45 Units/L [facility] Comment:Testing performed by : [address] [phone] AST 20 10 - 45 Units/L [facility] Comment:Testing performed by : [facility], [address] [place] [phone] Blood specimen (specimen) 09/30/2019 1:58 PM CDT 09/30/2019 2:01 PM CDT us Eren Cr MD LAB BLOOD ORDERABLES Final Re sult [facility] One [facility] Department [place] [address] * (ABNORMAL) CBC with auto differential (09/30/2019 1:58 PM CDT) WBC 4.9 3.8 - 9.8 K/cumm [facility] Comment:Testing performed by : [facility], [address] [place] [address] Hgb 11.9(L) 12.1 - 15.1 g/dL [facility] Comment:Testing performed by : [place] [address] Hct 33.7(L) 36.1 - 44.3 % [facility] Comment:Testing performed by : [facility], [address] [place] [address] Plt 106(L) 140 - 440 K/cumm [facility] Comment:Testing performed by : [place] [address] MPV 7.3 6.8 - 10.4 fL [facility] Comment:Testing performed by : [place] [address] RBC 3.66(L) 3.90 - 5.00 M/cumm [facility] Comment:Testing performed by : [place] [address] MCV 92.1 80.0 - 97.6 fL [facility] Comment:Testing performed by : [place] [address] MCH 32.4 26.7 - 33.7 pg [facility] Comment:Testing performed by : [place] [address] MCHC 35.2 32.7 - 35.5 g/dL [facility] Comment:Testing performed by : [place] [address] RDW CV 15.3(H) 11.8 - 14.6 % [facility] Comment:Testing performed by : [place] [address] NRBC abs 0.00 0.00 - 0.01 K/cumm [facility] Comment:Testing performed by : [place] [address] Blood specimen (specimen) 09/30/2019 1:58 PM CDT 09/30/2019 2:01 PM CDT Eren Cr MD LAB BLOOD ORDERABLES Final Re sult Performing Organization Address [facility] [place] [address] * (ABNORMAL) Chromogranin A (09/30/2019 1:58 PM CDT) Chromogranin A 161(H) <93 ng/mL [facility] Comment: Impaired renal or hepatic function or treatment with proton pump inhibitors may result in artifactual elevations of Chromogranin A. ADDITIONAL INFORMATION This test was developed and its performance characteristics determined by [facility] in a manner consistent with CLIA requirements. [...] malignant disease. Test Performed by: [facility] [place] [address] Top Lift Compresser: Immanuel Novak M.D. Ph.D.; CLIA# [id number] Blood specimen (specimen) 09/30/2019 1:58 PM CDT 09/30/2019 4:09 PM CDT Eren Cr MD LAB BLOOD ORDERABLES Final Re sult Performing Organization Address [facility]/[employer] de Phone Number [place] [address] * (ABNORMAL) CBC with auto differential (09/02/2019 2:14 PM FREIGHT ADJUSTER) WBC 3.5(L) 3.8 - 9.8 K/cumm [facility] Comment:Testing performed by : [facility], [address] [place] [address] Hgb 13.0 12.1 - 15.1 g/dL [facility] Comment:Testing performed by : [facility], [address] [place] [address] Hct 37.6 36.1 - 44.3 % [facility] Comment:Testing performed by : [facility], [address] [place] [address] Plt 94(L) 140 - 440 K/cumm [facility] Comment:Testing performed by : [place] [address] MPV 7.7 6.8 - 10.4 fL [facility] Comment:Testing performed by : [place] [address] RBC 4.19 3.90 - 5.00 M/cumm [facility] Comment:Testing performed by : [place] [address] MCV 89.8 80.0 - 97.6 fL [facility] Comment:Testing performed by : [place] [address] MCH 31.1 26.7 - 33.7 pg [facility] Comment:Testing performed by : [place] [address] MCHC 34.6 32.7 - 35.5 g/dL [facility] Comment:Testing performed by : [place] [address] RDW CV 15.0(H) 11.8 - 14.6 % [facility] Comment:Testing performed by : [place] [address] NRBC abs 0.00 0.00 - 0.01 K/cumm [facility] Comment:Testing performed by : [place] [address] Blood specimen (specimen) 09/02/2019 2:14 PM FREIGHT ADJUSTER 09/02/2019 2:15 PM FREIGHT ADJUSTER Eren Cr MD LAB BLOOD ORDERABLES Final Re sult Performing Organization Address [facility] de Phone Number [place] [address] * (ABNORMAL) Chromogranin A (09/02/2019 2:00 PM FREIGHT ADJUSTER) Chromogranin A 196(H) <93 ng/mL [facility] Comment: Impaired renal or hepatic function or treatment with proton pump inhibitors may result in artifactual elevations of Chromogranin A. ADDITIONAL INFORMATION This test was developed and its performance characteristics determined by [facility] in a manner consistent with CLIA requirements. [...] absence of malignant disease. Test Performed by: [place] [address] Top Lift Compresser: Immanuel Novak M.D. Ph.D.; CLIA# [id number] Blood specimen (specimen) 09/02/2019 2:00 PM FREIGHT ADJUSTER 09/02/2019 4:11 PM FREIGHT ADJUSTER Eren Cr MD LAB BLOOD ORDERABLES Final Re sult Performing Organization Address [facility] [place] [address] * (ABNORMAL) Comprehensive metabolic panel (09/02/2019 2:00 PM FREIGHT ADJUSTER) Sodium 141 135 - 145 mmol/L [facility] Potassium, pl 3.5 3.3 - 4.9 mmol/L [facility] Chloride 106 97 - 110 mmol/L [facility] CO2 27 22 - 32 mmol/L [facility] Anion gap 8 2 - 15 mmol/L [facility] BUN 16 8 - 25 mg/dL [facility] Creatinine 0.92 0.60 - 1.10 mg/dL [facility] [...] 2017. Calcium 10.5(H) 8.5 - 10.3 mg/dL [facility] Bilirubin, total 0.5 0.1 - 1.2 mg/dL [facility] Protein, pl 7.3 6.5 - 8.5 g/dL [facility] Albumin 4.3 3.5 - 5.0 g/dL [facility] Alk phos 83 40 - 130 Units/L [facility] ALT 15 7 - 45 Units/L [facility] AST 25 10 - 45 Units/L [facility] Blood specimen (specimen) 09/02/2019 2:00 PM FREIGHT ADJUSTER 09/02/2019 2:26 PM FREIGHT ADJUSTER us Eren Cr MD LAB BLOOD ORDERABLES Final Re sult [facility] One [facility] Department [place] [address] documented in this encounter Visit Diagnoses Diagnosis Neuroendocrine carcinoma (HCC)- Primary Other malignant neoplasm of unspecified site Bone metastasis Secondary malignant 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) Neuro-endocrine carcinoma (HCC) Other malignant neoplasm of unspecified site documented in this encounter Orders Appointment Requests Count Last Ordered Date Fi rst Ordered Date ONCBCN INJECTION APPOINTMENT REQUEST 3 10/0709/02/2019 ONCBCN LAB APPOINTMENT 3 10/27/201909/02 ONCBCN CLINIC APPOINTMENT REQUEST 1 020 documented in this encounter Care Teams Hat Former Relationship Specialty Start Date End Date Julio César Briseno MD PCP - General 10/01/16 Eren Cr MD Referring Physician Medical Oncology 11/25/18 Yohana Bowen MD Radiation Oncologist Radiation Oncology 11/25/18 documented as of this encounter
--- OUTSIDE RECORDS SUMMARY | 2024-06-25 22:33 | XMS_ITS | Encounter Summary ---
Author Organization [facility] Address [address] [place] [address] Phone Care Team Providers Care Stencil Machine Operator Name Role Phone Julio César Briseno MD Primary Care Provider Eren Cr MD Unavailable [phone] Yohana Bowen MD Unavailable Encounter Details Date Type Department Care Team (Late st Contact Info) Description 09/04/2019 Orders Only [facility] Surgery [address] [facility] Advanced Medicine 8th [place] [address] [place] [address] Greyson Reeves MD [address] [facility] [id number] [place] [address] Social History Tobacco Use Types Packs/Day Years Used Date Smoking Tobacco: Never Smokeless Tobacco: Never Alcohol Use Standard Drinks/Week Comments Yes 1 (1 standard drink = 0.6 oz pur e alcohol) Comments No Sex and Gender Information Value Date Recorded Sex Assigned at Not on file Legal Sex Female 2:41 PM OSHA INSPECTOR Gender Identity Not on file Sexual Orientation Straight 02/19/2021 9: 29 AM CDT Occupation Industry Job Start Date Job End Date retired Not on file Not on file Not on file documented as of this encounter Ordered Prescriptions Prescription Sig Dispense Quantity Refills Last Filled Start Date End Date cholestyramine (QUESTRAN) 4 gram packet Take 1 packet by mouth 3 (three) times a day with meals 270 packet 3 09/04/2019 04/09/2022 documented in this encounter Plan of Treatment Not on file documented as of this encounter Visit Diagnoses Not on filedocumented in this encounter Discontinued Medications Medication Sig Discontinue Reason Start Date End Da te cholestyramine (QUESTRAN) 4 gram packet Take 1 packet 30 minutes prior to meals. Reorder 09/01/2019 09/04/2019 documented as of this encounter Care Teams Stencil Machine Operator Relationship Specialty Start Date End Date Julio César Briseno MD PCP - General 10/01/16 Eren Cr MD Referring Physician Medical Oncology 11/25/18 Yohana Bowen MD Radiation Oncologist Radiation Oncology 11/25/18 documented as of this encounter
--- OUTSIDE RECORDS SUMMARY | 2024-06-25 22:33 | XMS_ITS | Encounter Summary ---
Author Organization [facility] Facility Care Team Providers Care Funding Analyst Name Role Phone Julio César Briseno MD Primary Care Provider [phone] Eren Cr MD Unavailable [phone] Yohana Bowen MD Unavailable Encounter Details Date Type Department Care Team (Latest Contact Info) Description 07/29/2019 Travel Social History Tobacco Use Types Packs/Day Years Used Date Smoking Tobacco: Never Smokeless Tobacco: Never Alcohol Use Standard Drinks/Week Comments Yes 1 (1 standard drink = 0.6 oz pur e alcohol) Comments No Sex and Gender Information Value Date Recorded Sex Assigned at Not on file Legal Sex Female 2:41 PM PEDIATRIC CLINICAL NURSE SPECIALIST Gender Identity Not on file Sexual Orientation Straight 02/19/2021 9: 29 AM CDT Occupation Industry Job Start Date Job End Date retired Not on file Not on file Not on file documented as of this encounter Plan of Treatment Not on file documented as of this encounter Visit Diagnoses Not on filedocumented in this encounter Care Teams Funding Analyst Relationship Specialty Start Date End Date Julio César Briseno MD PCP - General 10/01/16 Eren Cr MD Referring Physician Medical Oncology 11/25/18 Yohana Bowen MD Radiation Oncologist Radiation Oncology 11/25/18 documented as of this encounter
--- OUTSIDE RECORDS SUMMARY | 2024-06-25 22:33 | XMS_ITS | Encounter Summary ---
Author Organization [facility] Facility Care Team Providers Care Tyre Retreader Name Role Phone Julio César Briseno MD Primary Care Provider [phone] Eren Cr MD Unavailable [phone] Yohana Bowen MD Unavailable Encounter Details Date Type Department Care Team (Latest Contact Info) Description 09/30/2019 Travel Social History Tobacco Use Types Packs/Day Years Used Date Smoking Tobacco: Never Smokeless Tobacco: Never Alcohol Use Standard Drinks/Week Comments Yes 1 (1 standard drink = 0.6 oz pur e alcohol) Comments No Sex and Gender Information Value Date Recorded Sex Assigned at Not on file Legal Sex Female 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
--- OUTSIDE RECORDS SUMMARY | 2024-06-25 22:33 | XMS_ITS | Encounter Summary ---
Author Organization [facility] Address [address] [place] [address] Phone Care Team Providers Care Vegetable Harvest Worker Name Role Phone Julio César Briseno MD Primary Care Provider Eren Cr MD Unavailable Yohana Bowen MD Unavailable Encounter Details Date Type Department Care Team (Late st Contact Info) Description 07/20/2019 11:30 AM EMPLOYMENT ADJUDICATOR Office Visit [facility] Oncology [facility] 7th [place] [address] [place] [address] Eren Cr MD [address] [facility] [address] [place] [address] Neuro-endocrine carcinoma (CMS/HCC); Malignant neoplasm metastatic to liver (CMS/HCC) Social History Tobacco Use Types Packs/Day Years Used Date Smoking Tobacco: Never Smokeless Tobacco: Never Alcohol Use Standard Drinks/Week Comments Yes 1 (1 standard drink = 0.6 oz pur e alcohol) Comments No Sex and Gender Information Value Date Recorded Sex Assigned at Not on file Legal Sex Female 2:41 PM EMPLOYMENT ADJUDICATOR Gender Identity Not on file Sexual Orientation Straight 02/19/2021 9: 29 AM CDT Occupation Industry Job Start Date Job End Date retired Not on file Not on file Not on file documented as of this encounter Last Filed Vital Signs Vital Sign Reading Time Taken Comments Blood Pressure 146/87 07/20/2019 11:59 AM EMPLOYMENT ADJUDICATOR Pulse 89 07/20/2019 11:59 AM EMPLOYMENT ADJUDICATOR Temperature 37.1 ??C (98.7 ??F) 07/20/2019 1 1:59 AM EMPLOYMENT ADJUDICATOR Respiratory Rate 18 07/20/2019 11:5 9 AM EMPLOYMENT ADJUDICATOR Oxygen Saturation 98% 07/20/2019 11: 59 AM EMPLOYMENT ADJUDICATOR Inhaled Oxygen Concentration - - Weight 78.8 kg (173 lb 12.8 oz) 020 11:59 AM EMPLOYMENT ADJUDICATOR Height - - Body Mass Index 30.79 06/18/2019 2:18 PM EMPLOYMENT ADJUDICATOR documented in this encounter Progress Notes * Sabrina Willard NP - 07/20/2019 11:30 AM CST Images from the original note were not included. MEDICAL ONCOLOGY OUTPATIENT ROV NOTE La Chung : 1950 DATE OF VISIT: 07/20/19 Oncology History TREATMENT HISTORY: 1. CT abdomen [...] underwent right colectomy in [facility] OR by Dr. Greyson Reeves. Biopsy [...] for follow up visit for diagnosis of small bowel NEN who presents for follow-up visit. s/p SBO s/p diverting loop colostomy in April 2019. She is s/p #3 PRRT/Lutathera on 06/10/2019. She feels really well overall. Patient denies fever, chill, cough, SOB, rash, pain, N/V,swelling or bleeding. Seeing stoma RN tomorrow for some skin care issues with the ostomy. Otherwise, bowels are moving well. Had 1 Xgeva injection an during hospital admission in April, Calcium was low to 6.4 and Ionized Calcium was 3.66. Chromogranin A pending at time of visit, but was elevated with last check last month. ALLERGIES: Allergies Allergen Reactions ??? Ezetimibe-Simvastatin Muscle pain and Unknown Muscle weakness ??? Ramipril Cough ROS: A complete review of systems was performed and was negative other than those mentioned in the aboveinterval history. All other systems negative. OBJECTIVE: Most Recent Vitals: BP: 146/87 Temp: 37.1 ??C (98.7 ??F) Temp src: Oral Pulse: 89 Resp: 18 SpO2: 98 % Weight: 78.8 kg (173 lb 12.8 oz) PHYSICAL EXAM: ECOG PS: 0 General: well developed, well nourished female that [...] present. well healed abdominal surgical scars. Ostomy from 12-6 o'clock with tender skin surrounding the stoma adhesive that is pink in color. Extremities: No cyanosis, clubbing or edema. Skin: No rash or open wounds. Neurological: No focal deficit. A&O x 4 LABS: All laboratories personally reviewed and discussed with patient during office visit, selected values included below. Lab Results Component Value Date WBC 3.7 (L) 07/20/2019 HGB 13.0 07/20/2019 HCT 37.7 07/20/2019 MCV 88.1 07/20/2019 LABPLAT 100 (L) 07/20/2019 NEUTROABS 2.9 07/20/2019 CMP: Lab Results Component Value Date/Time SODIUM 143 07/20/2019 10:49 AM POTASSIUM 4.9 07/20/2019 10:49 AM CO2 29 07/20/2019 10:49 AM BUNSER 13 07/20/2019 10:49 AM GLUCOSE 109 07/20/2019 10:49 AM CREATININE 0.89 07/20/2019 10:49 AM CALCIUM 10.5 (H) 07/20/2019 10:49 AM CHLORIDE 110 07/20/2019 10:49 AM ALBUMIN 4.1 07/20/2019 10:49 AM AST 30 07/20/2019 10:49 AM ALT 18 07/20/2019 10:49 AM ALKPHOS 78 07/20/2019 10:49 AM BILITOT 0.7 07/20/2019 10:49 AM PROT 6.8 07/20/2019 10:49 AM ANIONGAP 4 07/20/2019 10:49 AM Lab Results Component Value Date MAGNESIUM 1.6 05/03/2019 Lab Results Component Value Date PHOS 2.0 (L) 05/03/2019 Tumor Marker History Some values may be hidden. Unless noted otherwise, only the newest values recorded on each date aredisplayed. Tumor Markers Latest Ref Range 03/02/19 03/30/19 04/14/19 06/01/19 Chromogranin A <93 ng/mL 232 (A) 203 (A) 376 (A) Troponin I 0.00 - 0.03 ng/mL <0.03 Some values recorded on this date have been omitted. (A) Abnormal value Comments are available for some flowsheets but are not being displayed. IMAGING: CT Chest Abdomen Pelvis W Contrast Narrative: EXAMINATION: Computed tomography of the chest, abdomen and pelvis with intravenous contrast HISTORY: Neuroendocrine carcinoma restaging TECHNIQUE: Transaxial computed tomographic images of the chest, abdomen and pelvis were obtained with intravenous contrast according to the standard protocol after the uneventful administration of 100 mL Opti-Ray 350 intravenous contrast. COMPARISON: 04/27/[address], chest CT dated 03/23/2019 FINDINGS: Again seen is a 1.0 cm right lower lobe pulmonary nodule along the right hemidiaphragm at table position -272.5. This is stable in size. 5 mm likely intrafissural lymph node along the oblique fissure at table position -242.5 is also stable. No new pulmonary nodule or mass. There is no pleural effusion pneumothorax or consolidation. No axillary or supraclavicular lymphadenopathy. 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 There is mild esophageal wall thickening superior to this which may represent mild esophagitis related to compression. A left-sided peripherally inserted central catheter terminates in the superior vena cava. Heart size is mildly enlarged without pericardial effusion. There is a small hiatal hernia. The thoracic aorta is atherosclerotic but nonaneurysmal. Again seen is nodularity along the posterior aspect of the right hemiliver at table position -350.5. It measures 1.6 cm in long axis, stable. No new liver lesion or biliary duct dilation. The gallbladder is absent. No focal lesions identified in the adrenal glands or the pancreas. The spleen is normal in size. A large diverticulum arises from the 4th portion of the duodenum. No suspicious renal lesion or hydronephrosis. Dominant aorta is atherosclerotic but nonaneurysmal. An aortocaval lymph node that has a rounded contour and is hyperattenuating compared to skeletal muscle at table position -466.5 measures 1.4 x 1.4 cm, stable. Additional subcentimeter retroperitoneal and iliac chain lymph nodes are present, unchanged from prior but also suspicious for small metastases. There is a hyperattenuating soft tissue nodule in the right vaginal cuff at table position -618.5. It measures 2.4 x 1.6 cm, stable. There is high attenuation surrounding the distal urethra which likely represents stones within a diverticulum. The bladder is decompressed. Surgical changes from loop descending colostomy are noted. There has been interval near complete resolution of a fluid collection along the midline abdominal incision. Fat necrosis is again noted in the omentum and surrounding the ostomy. Multiple omental nodules are present compatible with metastatic disease. 2 these can be seen in the central abdomen at table position -394.5, each measuring approximately 1 cm in size, stable. Multiple additional peritoneal nodules are seen along the small and large bowel, including in the left lower quadrant at table position -560.5 where there is a spiculated, 2.4 cm focus of soft tissue along the sigmoid colon. Again these findings are stable. Review of bone windows demonstrates no suspicious osseous lesion or fracture. Impression: 1. Stable disease primarily involving the peritoneum, omentum, and retroperitoneal lymph nodes as detailed. 2. Improving abdominal wall fluid and gas collection, now nearly completely resolved. Electronically signed by: Juan Selby M.D. ASSESSMENT AND PLAN: Ms. 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 ??She comes in for continued treatment and follow-up. ?1.?Metastatic neuroendocrine tumor of the ilium: S/p #3 PRRT, with #4 scheduled 08/05/2019. She will have Octreotide LAR injection that day as well following treatment. She will f/u in our office 08/24/2019 with repeat chromogranin A and assessment. Will see if Radiation Oncology had scheduled f/u images after #4 PRRT by that time, and work with their schedule and f/u. She will continue monthly Octreotide LAR in the meantime after PRRT is completed. Chromogranin A pending today. 2. Osseous disease: Follow for now. History of hypocalcemia following one dose of Xgeva. 3. Colostomy: F/u in ostomy clinic tomorrow for skin issues. Addendum: Chromogranin A 234. MERLINE Redmond- Nurse Practitioner Medical Oncology Dry Man completed by using e[employer]ruction by [employer] Direct speaking software, therefore, transcriptionvariances may occur. Cosigned by Eren Cr Jr., MD at 07/26/2019 10:01 AM EMPLOYMENT ADJUDICATOR OYMENT ADJUDICATOR OYMENT ADJUDICATOR documented in this encounter Plan of Treatment Not on file documented as of this encounter Results * (ABNORMAL) CBC with auto differential (08/17/2019 9:47 AM EMPLOYMENT ADJUDICATOR) WBC 3.5(L) 3.8 - 9.8 K/cumm [facility] Comment:Testing performed by : [facility], [address] [place] [phone] Hgb 12.5 12.1 - 15.1 g/dL [facility] Comment:Testing performed by : [facility], [address] [place] [phone] Hct 36.3 36.1 - 44.3 % [facility] Comment:Testing performed by : [facility], [address] [place] [phone] Plt 104(L) 140 - 440 K/cumm [facility] Comment:Testing performed by : [facility], [address] [place] [phone] MPV 7.6 6.8 - 10.4 fL [facility] BLACK Comment:Testing performed by : [facility], [address] [place] [phone] RBC 3.98 3.90 - 5.00 M/cumm [facility] BL[facility] Comment:Testing performed by : [facility], [address] [place], [place] [phone] MCV 91.2 80.0 - 97.6 fL [facility] BLACK Comment:Testing performed by : [facility], [address] [place] [phone] MCH 31.3 26.7 - 33.7 pg [facility] BLACK Comment:Testing performed by : [facility], [address] [place] [phone] MCHC 34.4 32.7 - 35.5 g/dL [facility] BLACK Comment:Testing performed by : [facility], [address] [place] [phone] RDW CV 15.0(H) 11.8 - 14.6 % [facility] BLACK Comment:Testing performed by : [facility], [address] [place] [phone] NRBC abs 0.00 0.00 - 0.01 K/cumm [facility] Comment:Testing performed by : [facility], [address] [place] [phone] Blood specimen (specimen) 08/17/2019 9:47 AM EMPLOYMENT ADJUDICATOR 08/17/2019 9:49 AM EMPLOYMENT ADJUDICATOR Sabrina Willard NP LAB BLOOD ORDERABLES Final R esult [facility] [place] [address] * Comprehensive metabolic panel (08/17/2019 9:40 AM EMPLOYMENT ADJUDICATOR) Sodium 143 135 - 145 mmol/L [facility] Potassium, pl 4.3 3.3 - 4.9 mmol/L [facility] Chloride 108 97 - 110 mmol/L [facility] CO2 31 22 - 32 mmol/L [facility] Anion gap 4 2 - 15 mmol/L [facility] BUN 11 8 - 25 mg/dL [facility] Creatinine 0.78 0.60 - 1.10 mg/dL [facility] Glucose 122 70 - 199 mg/dL [facility] Comment: Interpretive Data Fasting [...] 2017. Calcium 10.1 8.5 - 10.3 mg/dL [facility] Bilirubin, total 0.4 0.1 - 1.2 mg/dL [facility] Protein, pl 6.6 6.5 - 8.5 g/dL [facility] Albumin 4.2 3.5 - 5.0 g/dL [facility] Alk phos 67 40 - 130 Units/L [facility] ALT 13 7 - 45 Units/L [facility] AST 23 10 - 45 Units/L [facility] Blood specimen (specimen) 08/17/2019 9:40 AM EMPLOYMENT ADJUDICATOR 08/17/2019 10:05 AM EMPLOYMENT ADJUDICATOR Sabrina Willard NP LAB BLOOD ORDERABLES Final R esult [facility] [place] [address] * (ABNORMAL) Chromogranin A (08/17/2019 9:40 AM EMPLOYMENT ADJUDICATOR) Chromogranin A 273(H) <93 ng/mL [facility] Comment: Impaired renal or hepatic function or treatment with proton pump inhibitors may result in artifactual elevations of Chromogranin A. ADDITIONAL INFORMATION This test was developed and its performance characteristics determined by [facility] in a manner consistent with [...] of malignant disease. Test Performed by: [facility] [address] [place] [address] Mixer Blender: Immanuel Novak M.D. Ph.D.; CLIA# [id number] Blood specimen (specimen) 08/17/2019 9:40 AM EMPLOYMENT ADJUDICATOR 08/17/2019 10:07 AM EMPLOYMENT ADJUDICATOR us Sabrina Willard FOREST LOGISTICS MANAGER LAB BLOOD ORDERABLES Final R esult Performing Organization Address City/State/[facility] Co de Phone Number [facility] [place] [address] documented in this encounter Visit Diagnoses Diagnosis Neuro-endocrine carcinoma (HCC) Other malignant neoplasm of unspecified site Malignant neoplasm metastatic to liver (HCC) documented in this encounter Historical Medications * This list may reflect changes made after this encounter. bisacodyl (DULCOLAX) 10 mg suppository Gentle Laxative (bisacodyl) 10 mg rectal suppository USE DIRECTED 0 added in this encounter Orders Appointment Requests Count Last Ordered Date Fi rst Ordered Date ONCBCN CLINIC APPOINTMENT REQUEST 2 020 07/20/2019 ONCBCN LAB APPOINTMENT 1 08/17/2019 documented in this encounter Care Teams Vegetable Harvest Worker Relationship Specialty Start Date End Date Julio César Briseno MD PCP - General 10/01/16 Eren Cr MD Referring Physician Medical Oncology 11/25/18 Yohana Bowen MD Radiation Oncologist Radiation Oncology 11/25/18 documented as of this encounter
--- OUTSIDE RECORDS SUMMARY | 2024-06-25 22:33 | XMS_ITS | Encounter Summary ---
Author Organization [facility] Address [address] [place] [address] Phone Care Team Providers Care Manager Latin Name Role Phone Julio César Briseno MD Primary Care Provider [phone] Eren Cr MD Unavailable [phone] Yohana Bowen MD Unavailable Encounter Details Date Type Department Care Team (Late st Contact Info) Description 09/24/[address] [facility] Oncology [address] [place] [address] Sola Heredia Social History Tobacco Use Types Packs/Day Years Used Date Smoking Tobacco: Never Smokeless Tobacco: Never Alcohol Use Standard Drinks/Week Comments Yes 1 (1 standard drink = 0.6 oz pur e alcohol) Comments No Sex and Gender Information Value Date Recorded Sex Assigned at Not on file Legal Sex Female 2:41 PM SIZE TESTER Gender Identity Not on file Sexual [...] mg total) 3 (three) times a day. 111 capsule 09/24/2019 0 documented in this encounter Plan of Treatment Not on file documented as of this encounter Visit Diagnoses Not on filedocumented in this encounter Care Teams Manager Latin Relationship Specialty Start Date End Date Julio César Briseno MD PCP - General 10/01/16 Eren Cr MD Referring Physician Medical Oncology 11/25/18 Yohana Bowen MD Radiation Oncologist Radiation Oncology 11/25/18 documented as of this encounter
--- OUTSIDE RECORDS SUMMARY | 2024-06-25 22:33 | XMS_ITS | Encounter Summary ---
Author Organization [facility] Address [address] [place] [address] Phone Care Team Providers Care Paralegal Internship Name Role Phone Julio César Briseno MD Primary Care Provider Eren Cr MD Unavailable [phone] Yohana Bowen MD Unavailable Encounter Details Date Type Department Care Team (Late st Contact Info) Description 09/01/2019 Orders Only [facility] Oncology [address] [place] [address] Sola Heredia Social History Tobacco Use Types Packs/Day Years Used Date Smoking Tobacco: Never Smokeless Tobacco: Never Alcohol Use Standard Drinks/Week Comments Yes 1 (1 standard drink = 0.6 oz pur e alcohol) Comments No Sex and Gender Information Value Date Recorded Sex Assigned at Not on file Legal Sex Female 2:41 PM FILLING HAULER Gender Identity Not on file Sexual Orientation Straight 02/19/2021 9: 29 AM CDT Occupation Industry Job Start Date Job End Date retired Not on file Not on file Not on file documented as of this encounter Plan of Treatment Not on file documented as of this encounter Visit Diagnoses Not on filedocumented in this encounter Care Teams Paralegal Internship Relationship Specialty Start Date End Date Julio César Briseno MD PCP - General 10/01/16 Eren Cr MD Referring Physician Medical Oncology 11/25/18 Yohana Bowen MD Radiation Oncologist Radiation Oncology 11/25/18 documented as of this encounter
--- OUTSIDE RECORDS SUMMARY | 2024-06-25 22:33 | XMS_ITS | Encounter Summary ---
Author Organization [facility] Address [address] [place] [address] Phone Care Team Providers Care Manager Diabetes Name Role Phone Julio César Briseno MD Primary Care Provider [phone] Eren Cr MD Unavailable [phone] Yohana Bowen MD Unavailable Encounter Details Date Type Department Care Team (Late st Contact Info) Description 07/20/2019 10:30 AM SPECIAL EDUCATION 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 Lab [facility] Oncology 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) Social History Tobacco Use Types Packs/Day Years Used Date Smoking Tobacco: Never Smokeless Tobacco: Never Alcohol Use Standard Drinks/Week Comments Yes 1 (1 standard drink = 0.6 oz pur e alcohol) Comments No Sex and Gender Information Value Date Recorded Sex Assigned at Not on file Legal Sex Female 2:41 PM SPECIAL EDUCATION 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 Gender Identity Not on file Sexual Orientation Straight 02/19/2021 9: 29 AM CDT Occupation Industry Job Start Date Job End Date retired Not on file Not on file Not on file documented as of this encounter Plan of Treatment Not on file documented as of this encounter Procedures Procedure Name Priority Date/Time Associated Diagnosis Comments DIFFERENTIAL AUTO Routine 07/20/2019 10: 52 AM SPECIAL EDUCATION 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 to liver (CMS/HCC) CBC WITH AUTO DIFFERENTIAL Routine 07/20/2019 10:52 AM SPECIAL EDUCATION 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 to liver (CMS/HCC) CHROMOGRANIN A Routine 07/20/2019 10:49 AM SPECIAL EDUCATION 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 to liver (CMS/HCC) COMPREHENSIVE METABOLIC PANEL Routine 07/20/2019 10:49 AM SPECIAL EDUCATION 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 to liver (CMS/HCC) documented in this encounter Results * (ABNORMAL) Differential, auto (07/20/2019 10:52 AM SPECIAL EDUCATION 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) Neutrophil abs 2.9 1.8 - 6.6 K/cumm [facility] Comment:Testing performed by : [facility], [address] [place] [phone] Lymphocyte abs 0.3(L) 1.2 - 3.3 K/cumm [facility] Comment:Testing performed by : [facility], [address] [place] [phone] Monocyte abs 0.4 0.2 - 1.2 K/cumm [facility] Comment:Testing performed by : [facility], [address] [place] [phone] Eosinophil abs 0.1 0.0 - 0.5 K/cumm [facility] Comment:Testing performed by : [facility], [address] [place] [phone] Basophil abs 0.0 0.0 - 0.2 K/cumm [facility] Comment:Testing performed by : [facility], [address] [place] [phone] Neutrophil pct 77.0 % [facility] Comment: Interpretive Data Percent cell count reference ranges are not reported, since discordance with absolute values may lead to misinterpretation of CBC data. Current Interpretive Data was last revised on 2017. Testing performed by: [facility], [address] [place] [phone] Lymphocyte pct 7.8 % [facility] Comment: Interpretive Data Percent cell count reference ranges are not reported, since discordance with absolute values may lead to misinterpretation of CBC data. Current Interpretive Data was last revised on 2017. Testing performed by: [facility], [address] [place] [phone] Monocyte pct 12.0 % [facility] Comment:Testing performed by : [facility], [address] [place] [phone] Eosinophil pct 2.6 % [facility] Comment:Testing performed by : [facility], [address] [place] [phone] Basophil pct 0.6 % [facility] Comment:Testing performed by : [address] [phone] Blood specimen (specimen) 07/20/2019 10:52 AM SPECIAL EDUCATION 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 07/20/2019 10:55 AM SPECIAL EDUCATION 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 us Eren Cr MD LAB BLOOD ORDERABLES Final Re sult [facility] Department [place] [address] * (ABNORMAL) CBC with auto differential (07/20/2019 10:52 AM SPECIAL EDUCATION 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) WBC 3.7(L) 3.8 - 9.8 K/cumm [facility] Comment:Testing performed by : [facility], [address] [place] [phone] Hgb 13.0 12.1 - 15.1 g/dL [facility] Comment:Testing performed by : [address] [phone] Hct 37.7 36.1 - 44.3 % [facility] Comment:Testing performed by : [facility], [address] [place] [phone] Plt 100(L) 140 - 440 K/cumm [facility] Comment:Testing performed by : [facility], [address] [place] [phone] MPV 7.5 6.8 - 10.4 fL [facility] Comment:Testing performed by : [facility], [address] [place], [place] [phone] RBC 4.28 3.90 - 5.00 M/cumm [facility] Comment:Testing performed by : [place] [phone] MCV 88.1 80.0 - 97.6 fL [facility] Comment:Testing performed by : [facility], [address] [place], [place] [phone] MCH 30.4 26.7 - 33.7 pg [facility] Comment:Testing performed by : [facility], [address] [place], [place] [phone] MCHC 34.5 32.7 - 35.5 g/dL [facility] Comment:Testing performed by : [facility], [address] [place], [place] [phone] RDW CV 14.0 11.8 - 14.6 % [facility] Comment:Testing performed by : [facility], [address] [place] [phone] NRBC abs 0.02(H) 0.00 - 0.01 K/cumm [facility] Comment:Testing performed by : [address] [phone] Blood specimen (specimen) 07/20/2019 10:52 AM SPECIAL EDUCATION 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 07/20/2019 10:55 AM SPECIAL EDUCATION 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 us Eren Cr MD LAB BLOOD ORDERABLES Final Re sult [facility] [place] [address] * (ABNORMAL) Comprehensive metabolic panel (07/20/2019 10:49 AM SPECIAL EDUCATION 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) Sodium 143 135 - 145 mmol/L [facility] Potassium, pl 4.9 3.3 - 4.9 mmol/L [facility] Chloride 110 97 - 110 mmol/L [facility] CO2 29 22 - 32 mmol/L [facility] Anion gap 4 2 - 15 mmol/L [facility] BUN 13 8 - 25 mg/dL [facility] Creatinine 0.89 0.60 - 1.10 mg/dL [facility] Glucose 109 70 - 199 mg/dL [facility] [...] 2017. Calcium 10.5(H) 8.5 - 10.3 mg/dL [facility] Bilirubin, total 0.7 0.1 - 1.2 mg/dL [facility] Protein, pl 6.8 6.5 - 8.5 g/dL [facility] Albumin 4.1 3.5 - 5.0 g/dL [facility] Alk phos 78 40 - 130 Units/L [facility] ALT 18 7 - 45 Units/L [facility] AST 30 10 - 45 Units/L [facility] Blood specimen (specimen) 07/20/2019 10:49 AM SPECIAL EDUCATION 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 07/20/2019 11:02 AM SPECIAL EDUCATION 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 us Eren Cr MD LAB BLOOD ORDERABLES Final Re sult [facility] Department [place] [address] * (ABNORMAL) Chromogranin A (07/20/2019 10:49 AM SPECIAL EDUCATION 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) Chromogranin A 234(H) <93 ng/mL [facility] Comment: Impaired renal or hepatic function or treatment with proton pump inhibitors may result in artifactual elevations of Chromogranin A. ADDITIONAL INFORMATION This test was developed and its performance characteristics determined by [facility] in a manner consistent with [...] Performed by: [facility] [address] [place] [address] Optical Coating Technician: Immanuel Novak M.D. Ph.D.; CLIA# [id number] Blood specimen (specimen) 07/20/2019 10:49 AM SPECIAL EDUCATION 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 07/20/2019 11:17 AM SPECIAL EDUCATION 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 Eren Cr MD LAB BLOOD ORDERABLES Final Re sult [facility] Department of Laboratories [place], [place] [id number] documented in this encounter Visit Diagnoses Diagnosis Neuro-endocrine carcinoma (HCC) Other malignant neoplasm of unspecified site Malignant neoplasm metastatic to liver (HCC) documented in this encounter Orders Appointment Requests Count Last Ordered Date Fi rst Ordered Date ONCBCN LAB APPOINTMENT 1 07/20/2019 documented in this encounter Care Teams Manager Diabetes Relationship Specialty Start Date End Date Julio César Briseno MD PCP - General 10/01/16 Eren Cr MD Referring Physician Medical Oncology 11/25/18 Yohana Bowen MD Radiation Oncologist Radiation Oncology 11/25/18 documented as of this encounter
--- OUTSIDE RECORDS SUMMARY | 2024-06-25 22:33 | XMS_ITS | Encounter Summary ---
Author Organization [facility] Address [address] [place] [address] Phone Care Team Providers Care Plant Tender Name Role Phone Julio César Briseno MD Primary Care Provider Eren Cr MD Unavailable [phone] Yohana Bowen MD Unavailable Encounter Details Date Type Department Care Team (Late st Contact Info) Description 09/29/2019 Telephone [facility] Oncology [address] [facility] 7th [place] [address] [place] [phone] Harjinder Quijano MA Social History Tobacco Use Types Packs/Day Years Used Date Smoking Tobacco: Never Smokeless Tobacco: Never Alcohol Use Standard Drinks/Week Comments Yes 1 (1 standard drink = 0.6 oz pur e alcohol) Comments No Sex and Gender Information Value Date Recorded Sex Assigned at Not on file Legal Sex Female 2:41 PM COPY CHASER Gender Identity Not on file Sexual Orientation Straight 02/19/2021 9: 29 AM CDT Occupation Industry Job Start Date Job End Date retired Not on file Not on file Not on file documented as of this encounter Miscellaneous Notes * Telephone Encounter - Harjinder Quijano MA - 09/29/2019 12:07 PM CDT Visitor Policy: For the protection of our patients and staff during this time, we are implementing additional precautions for visitors at this time. ??? If you have a scheduled clinic visit, you may bring one (1) visitor with you. Both patients andvisitors will be screened when you arrive. If your visitor has any symptoms or has recently traveled or been exposed to someone with suspected COVID19, they will not be allowed to attend the appointment. ??? If you have an appointment in the treatment center, no visitors will be allowed. In very rare circumstances, a visitor may need to stay with a patient. These situations will be decided on a [id number] basis. ??? All visitors must follow hand-hygiene guidelines and use any other required equipment needed toprotect the patient and staff. What can YOU do? WASH YOUR HANDS! Use soap and water; lather for at least 20 seconds. Wash early and often! ??? Do not go to work sick, stay home when you are sick ??? Stay home as much as possible. Limit your interaction with other people. Social distancing is hard but it works. ??? For the latest updates, please go to [employer]'s website ([email or web address]) and click on the COVID19 link at the top of the page. If you have any other questions, please contact your nurse coordinator. Thank you for your patience as we make every effort to protect the health and safety of patients, staff, and visitors. documented in this encounter Plan of Treatment Not on file documented as of this encounter Visit Diagnoses Not on filedocumented in this encounter Care Teams Plant Tender Relationship Specialty Start Date End Date Julio César Briseno MD PCP - General 10/01/16 Eren Cr MD Referring Physician Medical Oncology 11/25/18 Yohana Bowen MD Radiation Oncologist Radiation Oncology 11/25/18 documented as of this encounter
--- OUTSIDE RECORDS SUMMARY | 2024-06-25 22:33 | XMS_ITS | Encounter Summary ---
Author Organization [facility] Care Team Providers Care Driver Helper Name Role Phone Julio César Briseno MD Primary Care Provider [phone] Eren Cr MD Unavailable [phone] Yohana Bowen MD Unavailable Encounter Details Date Type Department Care Team (Latest Contact Info) Description 08/04/2019 Travel Social History Tobacco Use Types Packs/Day Years Used Date Smoking Tobacco: Never Smokeless Tobacco: Never Alcohol Use Standard Drinks/Week Comments Yes 1 (1 standard drink = 0.6 oz pur e alcohol) Comments No Sex and Gender Information Value Date Recorded Sex Assigned at Not on file Legal Sex Female 2:41 PM PATTERN TECHNICIAN Gender Identity Not on file Sexual Orientation Straight 02/19/2021 9: 29 AM CDT Occupation Industry Job Start Date Job End Date retired Not on file Not on file Not on file documented as of this encounter Plan of Treatment Not on file documented as of this encounter Visit Diagnoses Not on filedocumented in this encounter Care Teams Driver Helper Relationship Specialty Start Date End Date Julio César Briseno MD PCP - General 10/01/16 Eren Cr MD Referring Physician Medical Oncology 11/25/18 Yohana Bowen MD Radiation Oncologist Radiation Oncology 11/25/18 documented as of this encounter
--- OUTSIDE RECORDS SUMMARY | 2024-06-25 22:33 | XMS_ITS | Encounter Summary ---
Author Organization [facility] Address [address] [place] [address] Phone Care Team Providers Care Equities Trader Name Role Phone Julio César Briseno MD Primary Care Provider [phone] Eren Cr MD Unavailable [phone] Yohana Bowen MD Unavailable Encounter Details Date Type Department Care Team (Late st Contact Info) Description 10/21/2019 Orders Only [facility] Oncology [address] [place] [address] Sola Heredia Social History Tobacco Use Types Packs/Day Years Used Date Smoking Tobacco: Never Smokeless Tobacco: Never Alcohol Use Standard Drinks/Week Comments Yes 1 (1 standard drink = 0.6 oz pur e alcohol) Comments No Sex and Gender Information Value Date Recorded Sex Assigned at Not on file Legal Sex Female 2: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
--- OUTSIDE RECORDS SUMMARY | 2024-06-25 22:33 | XMS_ITS | Encounter Summary ---
Author Organization [facility] Address [address] [place] [address] Phone Care Team Providers Care Shower Maid Name Role Phone Julio César Briseno MD Primary Care Provider [phone] Eren Cr MD Unavailable [phone] Yohana Bowen MD Unavailable Reason for Visit * Episode Based Medications (Routine) - Authorized Specialty Diagnoses / Procedures Referred By Evelyne t Referred To Contact Oncology Diagnoses Neuroendocrine carcinoma (HCC) Malignant neoplasm metastatic to liver (HCC) Procedures [place] OCTREOTIDE INJECTION, DEPOT Octreotide 28 Day Cycles - Carcinoid Eren Cr MD [address] [facility] [address] [place] [address] Phone: tel: fax: [facility] Cancer [address] [address] Phone: tel: fax: Referral ID Status Reason Start Date Expiration Date V isits Requested Visits Authorized [id number] Authorized 11/28/2017 02/05/2025 1 150 Encounter Details Date Type Department Care Team (Late st Contact Info) Description 09/30/2019 3:00 PM CDT Infusion [facility] Oncology [address] [place] [address] [place] [address] Neuroendocrine carcinoma (CMS/HCC) (Primary Dx); Malignant neoplasm metastatic to liver (CMS/HCC) Social History Tobacco Use Types Packs/Day Years Used Date Smoking Tobacco: Never Smokeless Tobacco: Never Alcohol Use Standard Drinks/Week Comments Yes 1 (1 standard drink = 0.6 oz pur e alcohol) Comments No Sex and Gender Information Value Date Recorded Sex Assigned at Not on file Legal Sex Female 2:41 PM OPERATING ENGINEER APPRENTICE Gender Identity Not on file Sexual [...] Sign Reading Time Taken Comments Blood Pressure 161/88 09/30/2019 2:20 PM CDT did not take BP meds yet; asymptomatic Pulse 83 09/30/2019 2:10 PM CDT Temperature 37.1 ??C (98.7 ??F) 09/30/2019 2 :10 PM CDT Respiratory Rate 20 09/30/2019 2:10 PM CDT Oxygen Saturation 97% 09/30/2019 2:1 0 PM CDT Inhaled Oxygen Concentration - - Weight 81 kg (178 lb 9.6 oz) 09/30/2019 2:10 PM CDT Height - - Body Mass Index 31.64 07/29/2019 6:18 AM OPERATING ENGINEER APPRENTICE documented in this encounter Nursing Notes * Joelle Sabillon RN - 09/30/2019 3:00 PM CDT Patient tolerated injection well, given left ventrogluteal. Verbalizes having return appointments. Discharged ambulatory. documented in this encounter Plan [...] 30 mg 30 mg, intramuscular, Once, On Sat09/30/19 at 1445, For 1 dose, Refrigerate. For IM administration only. [place].Indications:Malignan t neoplasm metastatic to liver (HCC),Neuroendocrine carcinoma (HCC) Given 09/30/2019 2:23 PM CDT 30 mg Left Ventrogluteal documented in this encounter Orders Medications Ordered That Brett ht Not Have Been Administered Count Last Ordered Date First Ordered Date octreotide LAR (SandoSTATIN LAR) extended release intramuscular injection 30 mg 1 09/30/2019 Appointment Requests Count Last Ordered Date Fi rst Ordered Date ONCBCN INJECTION APPOINTMENT REQUEST 1 09/06 documented in this encounter Care Teams Shower Maid Relationship Specialty Start Date End Date Julio César Briseno MD PCP - General 10/01/16 Eren Cr MD Referring Physician Medical Oncology 11/25/18 Yohana Bowen MD Radiation Oncologist Radiation Oncology 11/25/18 documented as of this encounter
--- OUTSIDE RECORDS SUMMARY | 2024-06-25 22:33 | XMS_ITS | Encounter Summary ---
Author Organization [facility] Address [address] [place] [address] Phone Care Team Providers Care Cardiology Clinical Consultant Name Role Phone Julio César Briseno MD Primary Care Provider Eren Cr MD Unavailable [phone] Yohana Bowen MD Unavailable Encounter Details Date Type Department Care Team (Late st Contact Info) Description 09/01/2019 Orders Only [facility] [address] [facility] [address] [place] [address] Greyson Reeves MD [address] [facility] [phone] [place] [address] Social History Tobacco Use Types Packs/Day Years Used Date Smoking Tobacco: Never Smokeless Tobacco: Never Alcohol Use Standard Drinks/Week Comments Yes 1 (1 standard drink = 0.6 oz pur e alcohol) Comments No Sex and Gender Information Value Date Recorded Sex Assigned at Not on file Legal Sex Female 2:41 PM TRANSPORTATION AGENT Gender Identity Not on file Sexual Orientation Straight 02/19/2021 9: 29 AM CDT Occupation Industry Job Start Date Job End Date retired Not on file Not on file Not on file documented as of this encounter Ordered Prescriptions Prescription Sig Dispense Quantity Refills Last Filled Start Date End Date cholestyramine (QUESTRAN) 4 gram packet Take 1 packet 30 minutes prior to meals. 90 packet 09/01/2019 0 documented in this encounter Plan of Treatment Not on file documented as of this encounter Visit Diagnoses Not on filedocumented in this encounter Care Teams Cardiology Clinical Consultant Relationship Specialty Start Date End Date Julio César Briseno MD PCP - General 10/01/16 Eren Cr MD Referring Physician Medical Oncology 11/25/18 Yohana Bowen MD Radiation Oncologist Radiation Oncology 11/25/18 documented as of this encounter
--- OUTSIDE RECORDS SUMMARY | 2024-06-25 22:33 | XMS_ITS | Encounter Summary ---
Author Organization [facility] Address [address] [place] [address] Phone Care Team Providers Care Office Support Specialist Name Role Phone Julio César Briseno MD Primary Care Provider Eren Cr MD Unavailable [phone] Yohana Bowen MD Unavailable Reason for Visit * Reason Onset Date Comments Scheduling Appointments 07/17/2019 rsc, no provider Encounter Details Date Type Department Care Team (Late st Contact Info) Description 07/17/2019 Telephone [facility] Surgery [address] [facility] 2nd Floor [address] [place] [address] Delfina Galloway RMA Scheduling Appointments (rsc, no provider) Social History Tobacco Use Types Packs/Day Years Used Date Smoking Tobacco: Never Smokeless Tobacco: Never Alcohol Use Standard Drinks/Week Comments Yes 1 (1 standard drink = 0.6 oz pur e alcohol) Comments No Sex and Gender Information Value Date Recorded Sex Assigned at Not on file Legal Sex Female 2:41 PM JUNIOR ARCHITECT Gender Identity Not on file Sexual Orientation Straight 02/19/2021 9: 29 AM CDT Occupation Industry Job Start Date Job End Date retired Not on file Not on file Not on file documented as of this encounter Miscellaneous Notes * Telephone Encounter - Delfina Galloway RMA - 07/17/2019 3:29 PM JUNIOR ARCHITECT LM for patient. Informed her we need to reschedule her appointment on 07/21 with [facility]. No provider available. Offered to move appointment to 07/22 at [facility] if she is available. Asked for a return call to reschedule. OR ARCHITECT documented in this encounter Plan of Treatment Not on file documented as of this encounter Visit Diagnoses Not on filedocumented in this encounter Care Teams Office Support Specialist Relationship Specialty Start Date End Date Julio César Briseno MD PCP - General 10/01/16 Eren Cr MD Referring Physician Medical Oncology 11/25/18 Yohana Bowen MD Radiation Oncologist Radiation Oncology 11/25/18 documented as of this encounter
--- OUTSIDE RECORDS SUMMARY | 2024-06-25 22:34 | XMS_ITS | Encounter Summary ---
Author Organization [facility] Healthcare Address [address] [place] [address] Care Team Providers Care Discharge Specialist Name Role Phone Julio César Briseno MD Primary Care Provider [phone] [address] MD Unavailable [phone] Yohana Bowen MD Unavailable Reason for Visit * Reason Comments Wound Infection Encounter Details Date Type Department Care Team (Latest Contact Info) Description 04/27/2019 9:31 PM CDT - 05/04/2019 5:40 PM CDT Hospital Encounter [facility] [address] [place] [address] Petros Menon MD [address] [facility] [address] [place] [address] Greyson Reeves MD [address] [facility] [phone] [place] [address] Tristian Cisse MD [address] [place] [address] Abscess (Primary Dx); Neuroendocrine carcinoma (CMS/HCC) Discharge Disposition: Discharge to home or self care Social History Tobacco Use Types Packs/Day Years Used Date Smoking Tobacco: Never Smokeless Tobacco: Never Alcohol Use Standard Drinks/Week Comments Yes 1 (1 standard drink = 0.6 oz pur e alcohol) Comments No Sex and Gender Information Value Date Recorded Sex Assigned at Not on file Legal Sex Female 2:41 PM [employer]ION[employer] Gender Identity Not on file Sexual Orientation Straight 02/19/2021 9: 29 AM CDT Occupation Industry Job Start Date Job End Date retired Not on file Not on file Not on file documented as of this encounter Last Filed Vital Signs Vital Sign Reading Time Taken Comments Blood Pressure 131/72 05/04/2019 9:45 AM CDT Pulse 87 05/04/2019 9:45 AM CDT Temperature 36.5 ??C (97.7 ??F) 05/04/2019 9:45 AM CD T Respiratory Rate 16 05/04/2019 9:45 AM CDT Oxygen Saturation 97% 05/04/2019 9:45 AM CDT Inhaled Oxygen Concentration - - Weight 81.6 kg (180 lb) 04/28/2019 7:45 AM CDT Height 160 cm (5' 2.99 ) 04/28/2019 7:45 AM CDT Body Mass Index 31.89 04/28/2019 7:45 AM CDT documented in this encounter Discharge Diagnoses Diagnosis Infection following a procedure, deep incisional surgical site, initial encounter - INFECTION FOLLOWING A PROCEDURE, DEEP INCISIONAL SURGICAL SITE, INITIAL ENCOUNTER Other malignant neuroendocrine tumors (HCC) - OTHER MALIGNANT NEUROENDOCRINE TUMORS 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) - SECONDARY MALIGNANT NEOPLASM OF RETROPERITONEUM AND PERITONEUM Secondary malignant neoplasm of retroperitoneum and peritoneum Acute kidney failure, unspecified (HCC) - ACUTE KIDNEY FAILURE, UNSPECIFIED Acute kidney failure, unspecified Encounter for immunization - ENCOUNTER FOR IMMUNIZATION Hypocalcemia - HYPOCALCEMIA Hypokalemia - HYPOKALEMIA Hypopotassemia Gastro-esophageal reflux disease without esophagitis - GASTRO-ESOPHAGEAL REFLUX DISEASE WITHOUT ESOPHAGITIS Essential (primary) hypertension - ESSENTIAL (PRIMARY) HYPERTENSION Unspecified essential hypertension Pure hypercholesterolemia, unspecified - PURE HYPERCHOLESTEROLEMIA, UNSPECIFIED Unspecified place or not applicable - UNSPECIFIED PLACE OR NOT APPLICABLE Other specified events, undetermined intent, initial encounter - OTHER SPECIFIED EVENTS, UNDETERMINED INTENT, INITIAL ENCOUNTER Procedure and treatment not carried out, unspecified reason - PROCEDURE AND TREATMENT NOT CARRIED OUT, UNSPECIFIED REASON Allergy status to other drugs, medicaments and biological substances status - ALLERGY STATUS TO OTHER DRUGS, MEDICAMENTS AND BIOLOGICAL SUBSTANCES STATUS [facility] (current) use of anticoagulants - [employer] (CURRENT) USE OF ANTICOAGULANTS Long-term (current) use of anticoagulants [facility] (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 ANALGESIC Acquired absence of both cervix and uterus - ACQUIRED ABSENCE OF BOTH CERVIX AND UTERUS Colostomy status (CMS/HCC) (HCC) - COLOSTOMY STATUS Colostomy status documented in this encounter Discharge Summaries * Janelle Jacques MD - 05/04/2019 7:29 AM CDT Inpatient Discharge Summary Admitting Provider: Greyson Reeves MD Discharge Provider: Greyson Reeves MD Primary Care Physician at Discharge: Julio César Briseno MD [phone] Admission Date: 04/27/2019 Discharge Date: 05/04/2019 Primary Discharge Diagnosis: Wound infection Secondary Discharge Diagnosis: No Active Problems: There are no active problems currently on the Problem List. Please update the Problem List and refresh. Operative Procedures Performed: None History of Present Illness: Please see note dated 04/27/19 for full details. In summary, Ms. 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 She was taken to the operating room on 04/13/[address] Reeves for exploratory laparotomy and diverting loop colostomy. This was complicated by extensive lysis of adhesion and obvious evidence of peritoneal metastasis. She was ultimately discharged home on 04/23/2019. She presented to ED on 04/27 with concern for worsening erythema around her wound. She states that it is become more red since Saturday. It is associated with increased swelling and pain. She has noticed scant drainage. She denies fevers but endorses chills. She otherwise denies chest pain, shortnessof breath, nausea. She has had poor oral intake. She empties her ostomy several times per day and does not endorse a change in caliber or appearance. On presentation, she is afebrile 36.4 C, and otherwise hemodynamically stable. Labs are notable forWBC 10.8, hemoglobin 10.6, platelets 322, lactate 2.4, elevated creatinine 1.29. CT showing c/f developing abscess. Hospital Course: Patient was admitted to inpatient floor and started on broad spectrum antibiotics (vanc/cefe/flagyl, later narrowed to cipro/flagyl and discontinued 05/03). Newberry along inferior portion of wound were removed at bedside and wound was irrigated, revealing a 3.5cm deep wound with pink, healthy woundedges and small amount of serosanguinous drainage. Wound care team was consulted and wet to dry dressings were applied twice daily. Wound vac was placed on wound on 05/03, with plan to discharge homefor further wound vac care (WV changes 2-3 times weekly) and eventually transition back to twice daily packing dressing changes. Throughout hospitalization, patient remained afebrile with minimal leuk ocytosis and reported only mild abdominal pain, well-controlled with oral pain medications. Blood cultures obtained on admit were negative. Wound cultures were not obtained. We provided fluid resuscitation and home medications were restarted as indicated. At time of discharge, patient's pain was well-controlled on oral pain medications, tolerating adequate oral intake with normal bowel function, voiding spontaneously without difficulty, and ambulating well. Newberry removed on day of discharge, steri-strips placed over incision. Active Issues Requiring Follow-up: Wound care Test Results Pending at Discharge: None Pertinent Test Results: 04/27 blood culture x2: negative Other Procedures Performed During Hospitalization: None Discharge Details Physical Exam at Discharge: Discharge Condition: good Pulse: 69 Resp: 16 BP: 148/68 Temp: 36.4 ??C (97.5 ??F) Weight: 81.6 kg (180 lb) Gen: AOx3, conversing comfortably HEENT: EOMI, moist mucus membranes Neck: Supple, trachea midline CV: Regular rate, no JVD, warm and well-perfused Pulm: Non-labored breathing Abd: Soft, nontender, nondistended; WV in place over inferior portion of wound with SS output in cannister; steri strips in place over superior portion of wound - carlos removed; ostomy pink and healthy with stool in bag; please see media for photos of wound Ext: warm, no pedal edema Neuro: AMIN, no focal deficits Discharge Disposition: Discharged to: home Code Status at Discharge: full Discharge Instructions: Colorectal Surgery Follow Up: *Colorectal scheduling has been notified to assist patient in scheduling follow- up appointment in 2weeks to re-assess wound *Please call to schedule a follow up appointment in 2 weeks with your doctor. DISCHARGE INSTRUCTIONS FOR NON-OPERATIVE Call your doctor if: Call 911 or go to the closest emergency room if you are having: * Chest pain. * Suddenly have a hard time breathing. * Fainting or loss of consciousness. Call Your Doctor if: * You have a fever of greater than 101.5 F. * You develop nausea to the point you cannot tolerate liquids or you develop vomiting. * You develop severe pain at the incision area. * If you have an incision and develop pus, bright red blood or foul smelling drainage. * You lose more than 1 cup of blood from a wound, rectum or ostomy. * If you have an ileostomy and the output is more than 1200 ml in 24 hours. * You have more than 8-10 bowel movements in 24 hours. * You are unable to urinate after 8 hours. * You have dizziness, lightheadedness or extreme fatigue. Diet: Resume your previous diet. Activity: * No driving while taking narcotic pain medications. * If you had surgery, do NOT lift objects weighing more than 10 pounds for 4 weeks after surgery. Care Instructions: * Unless you are told otherwise, you may shower. * No tub baths until your doctor says it???s okay. Follow Up: * Please call to schedule a follow up appointment in 4 weeks with your doctor. * Please also schedule an appointment to have your carlos removed 10 days following surgery if youare not receiving home health care services. Additional Information: Prescriptions will only be refilled during our normal office hours of 8:30 AM- 4:00 PM Saturday through Saturday. No prescriptions will be refilled over the weekend. Please plan ahead if you know that youwill need a medication and allow a 24 hour period for it to be refilled. Other Instructions Ambulatory referral to Home Health Service Line: Home Health Primary disciplines requested: Long Term Home Health Services: Wound/ Ostomy Care Physician to follow patient's care (the person listed here will be responsible for signing ongoing orders): Referring Provider Requested Start of Care Date: Tomorrow Special instructions (labs, wound care, etc.): resume for ostomy care and teaching, abdominal woundvac, to be changed 3 times a week, suction 125 mm I attest that I or another qualified licensed provider saw the patient 90 days prior to or 30 days post admission and this face to face encounter meets the necessary Home Health requirements. The face to face encounter occurred on (date): 04/29/2019 The encounter with the patient was in whole, or in part, for the following medical condition, whichis the primary reason for home health care. (List medical condition): Neuroendocrine tumor - wound infection I certify that, based on my findings, the following services are medically necessary skilled home health services: Wound/ Ostomy Care Clinical findings that support the need for home care: Medical condition requiring skilled assessment/education Wound requiring care, assessment, and instruction I certify that my clinical findings support patient's homebound status. Homebound criteria met because: Pain and impaired mobility post-op Discharge Medications: Your medication list CONTINUE taking these medications ascorbic acid (vitamin C) 500 mg capsule cholecalciferol 2,000 unit capsule Commonly known as: VITAMIN D-3 Take 1 capsule (2,000 Units total) by mouth daily clotrimazole-betamethasone cream Commonly known as: LOTRISONE CO Q-10 (WITH VIT E) 100-5 mg-unit capsule Generic drug: coenzyme [id number] DULoxetine DR 30 mg capsule Commonly known as: CYMBALTA Take 1 capsule (30 mg total) by mouth daily enoxaparin 40 mg/0.4 mL syringe Commonly known as: LOVENOX Inject 0.4 mL (40 mg total) under the skin daily for 21 days fluticasone propionate 50 mcg/actuation nasal spray Commonly known as: FLONASE montelukast 10 mg tablet Commonly known as: SINGULAIR olmesartan-hydrochlorothiazide 20-12.5 mg per tablet Commonly known as: BENICAR HCT oxybutynin 5 mg tablet Commonly known as: DITROPAN Take 1 tablet (5 mg total) by mouth 2 (two) times a day for 14 days oxyCODONE 5 mg immediate release tablet Commonly known as: ROXICODONE Take 1 tablet (5 mg total) by mouth every 4 (four) hours as needed for pain PROCTOSOL HC 2.5 % rectal cream Generic drug: hydrocortisone simvastatin 20 mg tablet Commonly known as: ZOCOR Outpatient Follow-Up: Future Appointments Date Time Provider Department Center 05/28/2019 1:30 PM Greyson Reeves MD C/R [facility] 06/10/2019 7:00 AM Yohana Bowen MD [facility] Rad On[facility] 06/10/2019 4:00 PM POD 8 [facility] ONC INF [facility] 06/16/2019 1:00 PM Oksana Rivas NP ONC [facility] 13C OB Cosigned by Greyson Reeves MD at 05/06/2019 8:05 AM CDT documented in this encounter Discharge Instructions * Discharge Instructions* Janelle Jacques MD - 05/04/2019 7:29 AM CDT DISCHARGE INSTRUCTIONS FOR NON-OPERATIVE Call your doctor if: Call 911 or go to the closest emergency room if you are having: * Chest pain. * Suddenly have a hard time breathing. * Fainting or loss of consciousness. Call Your Doctor if: * You have a fever of greater than 101.5 F. * You develop nausea to the point you cannot tolerate liquids or you develop vomiting. * You develop severe pain at the incision area. * If you have an incision and develop pus, bright red blood or foul smelling drainage. * You lose more than 1 cup of blood from a wound, rectum or ostomy. * If you have an ileostomy and the output is more than 1200 ml in 24 hours. * You have more than 8-10 bowel movements in 24 hours. * You are unable to urinate after 8 hours. * You have dizziness, lightheadedness or extreme fatigue. Diet: Resume your previous diet. Activity: * No driving while taking narcotic pain medications. * If you had surgery, do NOT lift objects weighing more than 10 pounds for 4 weeks after surgery. Care Instructions: * Unless you are told otherwise, you may shower. * No tub baths until your doctor says it???s okay. Follow Up: * Please call to schedule a follow up appointment in 4 weeks with your doctor. * Please also schedule an appointment to have your carlos removed 10 days following surgery if youare not receiving home health care services. Additional Information: Prescriptions will only be refilled during our normal office hours of 8:30 AM- 4:00 PM Saturday through Saturday. No prescriptions will be refilled over the weekend. Please plan ahead if you know that youwill need a medication and allow a 24 hour period for it to be refilled. ADDITIONAL INSTRUCTIONS: Please complete the 21 days of Lovenox anticoagulation you were given after prior discharge. Follow-up in clinic in 2 weeks. Active issues requiring follow up: wound care Test results pending at discharge: none documented in this encounter Medications at Time of Discharge simvastatin (ZOCOR) 20 mg tablet Take 1 tablet (20 mg total) by mouth nightly enoxaparin (LOVENOX) 40 mg/0.4 mL syringeIndications :Deep Vein Thrombosis Prevention Inject 0.4 mL (40 mg total) under the skin daily for 21 days 8.4 mL 04/24/2019 9 ascorbic acid, vitamin C, 500 mg capsuleIndications :supplement Take 1 tablet by mouth couturiere before breakfast 07/04/2016 4 cholecalciferol (VITAMIN D-3) 2,000 unit capsule Take 1 capsule (2,000 Units total) by mouth daily 30 capsule 2 04/25/2019 3 clotrimazole-betam ethasone (LOTRISONE) cream Apply 1 Application topically daily as needed (rash) 4 coenzyme [id number] 100-5 mg-unit capsuleIndications :supplement Take 1 tablet by mouth couturiere before breakfast [address] (CYMBALTA) 30 [...] needed for pain 10 tablet 04/24/2019 0 documented as of this encounter Discharge Disposition Disposition Code Departure Means Destination Discharge to home or self care documented in this encounter Progress Notes * Priscilla Aguilar RN - 05/04/2019 11:48 AM CDT 05/04/19 1148 Communications Important Message from Medicare notice given to patient? Yes Patient provided with IM letter; signed, dated and faxed to medical records. * Jackie Valladares MD - 05/04/2019 7:01 AM CDT Colorectal Surgery Daily Progress Note [facility] [place] 1950 Interval History: Abdominal pain controlled, no nausea. Wound vac placed yesterday. 325 charted out of ostomy with 100 cc BM. Patient is eager to go home. Vitals: 05/04/19 0440 BP: 148/68 Pulse: 69 Resp: 16 Temp: 36.4 ??C (97.5 ??F) SpO2: 98% Wt Readings from Last 3 Encounters: 04/28/19 81.6 kg (180 lb) 04/12/19 81.6 kg (180 lb) 03/30/19 79.9 kg (176 lb 3.2 oz) Physical Exam General Appearance: Alert, cooperative, no distress Head: Normocephalic, atraumatic Eyes: Conjunctiva clear, EOMs intact Nose: Nares normal, septum midline Lungs: Respirations unlabored, symmetrical chest rise Heart: Regular rate and rhythm Abdomen: Soft, non-tender, non-distended Wound: Wound vac in place, holding suction. Skin without erythema or induration. Ostomy pink, dark solid stool output. Wound measurements 3 cm x 7 cm depth and 4 cm wide Extremities: Extremities atraumatic, no cyanosis or edema Skin: Skin warm, no rashes or lesions Neurologic: No gross motor deficits x4 extremities Recent Labs Lab Units 05/03/19 0125 WBC K/cumm 8.6 HEMOGLOBIN g/dL 11.3* HEMATOCRIT % 35.5* Recent Labs Lab Units 05/03/19 0125 CO2 mmol/L 23 CREATININE mg/dL 0.60 GLUCOSE mg/dL 133 CALCIUM mg/dL 8.5 Scheduled Medications Medication Dose Route Frequency ??? DULoxetine DR (CYMBALTA) extended release capsule 30 mg 30 mg oral Daily ??? enoxaparin (LOVENOX) syringe 40 mg 40 mg subcutaneous Daily-2099 ??? famotidine (PEPCID) tablet 20 mg 20 mg oral Daily ??? hydroCHLOROthiazide (HYDRODIURIL) tablet 12.5 mg 12.5 mg oral Daily ??? montelukast (SINGULAIR) tablet 10 mg 10 mg oral Nightly ??? oxybutynin (DITROPAN) tablet 5 mg 5 mg oral BID ??? simvastatin (ZOCOR) tablet 20 mg 20 mg oral Daily ??? sodium chloride 0.9% flush 0.5-20 mL 0.5-20 mL intra-catheter Q8H MAUREEN PRN Medications Medication Dose Route Frequency Last Dose ??? acetaminophen (TYLENOL) tablet 650 mg 650 mg oral Q4H PRN 650 mg at 04/29/19 1306 ??? influenza trivalent [id number] (FLUZONE HIGH DOSE) 180 mcg/0.5 mL vaccine (HIGH DOSE age 65 years and up) 0.5 mL 0.5 mL intramuscular During hospitalization ??? ondansetron ODT (ZOFRAN-ODT) disintegrating tablet 4 mg 4 mg oral Q6H PRN 4 mg at 05/01/19 0647 ??? oxyCODONE (ROXICODONE) tablet 5 mg 5 mg oral Q4H PRN 5 mg at 04/29/19 0539 ??? sodium chloride 0.9% flush 0.5-20 mL 0.5-20 mL intra-catheter PRN Assessment/Plan: -Pain- Tylenol, oxycodone -Diet- Regular diet -Home meds- continue cymbalta, ditropan, statin -DVT ppx: Lovenox, SCDs, OOB during day -ID- cipro/flagyl -PT eval/treat -Continue wound vac -Will coordinate wound vac approval with case management -Likely d/c today Jackie Valladares MD 05/02/19 * Jasbir Michele MD - 05/03/2019 9:03 AM CDT Colorectal Surgery Daily Progress Note [place] 1950 Interval History: Nauseated, small volume NBNB emesis. Dressing was changed appropriately overnight, still copious drainage on ABD pad. Low to no ostomy output during day, picked up overnight. Vitals: 05/03/19 0810 BP: 158/73 Pulse: 77 Resp: 16 Temp: 36.7 ??C (98.1 ??F) SpO2: 92% Wt Readings from Last 3 Encounters: 04/28/19 81.6 kg (180 lb) 04/12/19 81.6 kg (180 lb) 03/30/19 79.9 kg (176 lb 3.2 oz) Physical Exam General Appearance: Alert, cooperative, no distress Head: Normocephalic, atraumatic Eyes: Conjunctiva clear, EOMs intact Nose: Nares normal, septum midline Lungs: Respirations unlabored, symmetrical chest rise Heart: Regular rate and rhythm Abdomen: Soft, non-tender, non-distended Wound: dressing changed, serous fluid quickly filled cavity. Packed dry. Skin without erythema or induration Ostomy pink, dark solid stool output Extremities: Extremities atraumatic, no cyanosis or edema Skin: Skin warm, no rashes or lesions Neurologic: No gross motor deficits x4 extremities Recent Labs Lab Units 05/03/19 0125 WBC K/cumm 8.6 HEMOGLOBIN g/dL 11.3* HEMATOCRIT % 35.5* Recent Labs Lab Units 05/03/19 0125 CO2 mmol/L 23 CREATININE mg/dL 0.60 GLUCOSE mg/dL 133 CALCIUM mg/dL 8.5 Scheduled Medications Medication Dose Route Frequency ??? ciprofloxacin (CIPRO) tablet 500 mg 500 mg oral BID - special ??? DULoxetine DR (CYMBALTA) extended release capsule 30 mg 30 mg oral Daily ??? enoxaparin (LOVENOX) syringe 40 mg 40 mg subcutaneous Daily-2099 ??? famotidine (PEPCID) tablet 20 mg 20 mg oral Daily ??? hydroCHLOROthiazide (HYDRODIURIL) tablet 12.5 mg 12.5 mg oral Daily ??? magnesium sulfate 2 g/50 mL in water (premix) 2 g 2 g intravenous Once ??? metroNIDAZOLE (FLAGYL) tablet 500 mg 500 mg oral TID ??? montelukast (SINGULAIR) tablet 10 mg 10 mg oral Nightly ??? oxybutynin (DITROPAN) tablet 5 mg 5 mg oral BID ??? simvastatin (ZOCOR) tablet 20 mg 20 mg oral Daily ??? sodium chloride 0.9% flush 0.5-20 mL 0.5-20 mL intra-catheter Q8H MAUREEN ??? sodium phosphate 40 mmol in sodium chloride 0.9% 500 mL IVPB 40 mmol intravenous Once PRN Medications Medication Dose Route Frequency Last Dose ??? acetaminophen (TYLENOL) tablet 650 mg 650 mg oral Q4H PRN 650 mg at 04/29/19 1306 ??? influenza trivalent [id number] (FLUZONE HIGH DOSE) 180 mcg/0.5 mL vaccine (HIGH DOSE age 65 years and up) 0.5 mL 0.5 mL intramuscular During hospitalization ??? ondansetron ODT (ZOFRAN-ODT) disintegrating tablet 4 mg 4 mg oral Q6H PRN 4 mg at 05/01/19 0647 ??? oxyCODONE (ROXICODONE) tablet 5 mg 5 mg oral Q4H PRN 5 mg at 04/29/19 0539 ??? sodium chloride 0.9% flush 0.5-20 mL 0.5-20 mL intra-catheter PRN Assessment/Plan: -Pain- Tylenol, oxycodone -Diet- Regular diet -IVF- [id number] @ 100 cc/hr -Home meds- continue cymbalta, ditropan, statin -DVT ppx: Lovenox, SCDs, OOB during day -ID- cipro/flagyl -PT eval/treat -Wound care: today, wound vac will be placed -Will coordinate wound vac approval with case management Jasbir Michele MD 05/02/19 Cosigned by Hilario Cali MD at 05/05/2019 7:07 AM CDT * Jackie Valladares MD - 05/02/2019 12:35 PM CDT Colorectal Surgery Daily Progress Note [facility] 1950 [facility] DAY[facility]5 Interval History: Pain well-controlled. Adequate urine and ostomy output. Packing was not changed by nurse overnight. Vitals: 05/03/19 0118 BP: 170/83 Pulse: 102 Resp: 18 Temp: 36.5 ??C (97.7 ??F) SpO2: 98% Wt Readings from Last 3 Encounters: 04/28/19 81.6 kg (180 lb) 04/12/19 81.6 kg (180 lb) 03/30/19 79.9 kg (176 lb 3.2 oz) Physical Exam Gen: AOx3, conversing comfortably HEENT: EOMI, moist mucus membranes Neck: Supple, trachea midline CV: Regular rate, no JVD Pulm: Non-labored breathing Abd: Soft, nontender, nondistended; midline incision with carlos in place- inferior portion of incision open and packed with dry gauze and covered with abdominal pad; ostomy pink and healthy with stool and gas in bag Ext: warm, SCDs in place Neuro: AMIN, no focal deficits Recent Labs Lab Units 05/03/19 0125 WBC K/cumm 8.6 HEMOGLOBIN g/dL 11.3* HEMATOCRIT % 35.5* Recent Labs Lab Units 05/03/19 0125 CO2 mmol/L 23 CREATININE mg/dL 0.60 GLUCOSE mg/dL 133 CALCIUM mg/dL 8.5 Scheduled Medications Medication Dose Route Frequency ??? ciprofloxacin (CIPRO) tablet 500 mg 500 mg oral BID - special ??? DULoxetine DR (CYMBALTA) extended release capsule 30 mg 30 mg oral Daily ??? enoxaparin (LOVENOX) syringe 40 mg 40 mg subcutaneous Daily-2099 ??? famotidine (PEPCID) tablet 20 mg 20 mg oral Daily ??? magnesium sulfate 2 g/50 mL in water (premix) 2 g 2 g intravenous Once ??? metroNIDAZOLE (FLAGYL) tablet 500 mg 500 mg oral TID ??? montelukast (SINGULAIR) tablet 10 mg 10 mg oral Nightly ??? oxybutynin (DITROPAN) tablet 5 mg 5 mg oral BID ??? simvastatin (ZOCOR) tablet 20 mg 20 mg oral Daily ??? sodium chloride 0.9% flush 0.5-20 mL 0.5-20 mL intra-catheter Q8H MAUREEN ??? sodium phosphate 40 mmol in sodium chloride 0.9% 500 mL IVPB 40 mmol intravenous Once PRN Medications Medication Dose Route Frequency Last Dose ??? acetaminophen (TYLENOL) tablet 650 mg 650 mg oral Q4H PRN 650 mg at 04/29/19 1306 ??? influenza trivalent [id number] (FLUZONE HIGH DOSE) 180 mcg/0.5 mL vaccine (HIGH DOSE age 65 years and up) 0.5 mL 0.5 mL intramuscular During hospitalization ??? ondansetron ODT (ZOFRAN-ODT) disintegrating tablet 4 mg 4 mg oral Q6H PRN 4 mg at 05/01/19 0647 ??? oxyCODONE (ROXICODONE) tablet 5 mg 5 mg oral Q4H PRN 5 mg at 04/29/19 0539 ??? sodium chloride 0.9% flush 0.5-20 mL 0.5-20 mL intra-catheter PRN Assessment/Plan: -Pain- Tylenol, oxycodone -Diet- Regular diet -IVF- [id number] @ 100 cc/hr -Home meds- continue cymbalta, ditropan, statin -DVT ppx: Lovenox, SCDs, OOB during day -ID- cipro/flagyl -PT eval/treat -Wound care: today, dry gauze to be replaced once and abd PRN saturation; tomorrow wound vac will be placed -Plan to d/c tomorrow Jackie Valladares MD 05/02/19 Cosigned by Greyson Reeves MD at 05/03/2019 8:48 AM CDT * Nadja Wilcox, PT - 05/01/2019 1:54 PM CDT Physical Therapy Orders received and chart reviewed. Per pt, she is not interested in therapy services and states that she is independent with all mobility. Per OT and nursing notes, pt independently with all mobility. Orders will be completed and discontinued. Nadja Wilcox, CHUCK 05/01/19 * Janelle Jacques MD - 05/01/2019 11:33 AM CDT Images from the original note were not included. Colorectal Surgery Daily Progress Note [facility] 1950 [facility] DAY#4 Interval History: Emesis x1 this AM. Otherwise pain well-controlled, Adequate urine and ostomy output. BID packing byteam, gauze pads changed regularly by nursing staff when saturated. Vitals: 05/01/19 0745 BP: 142/98 Pulse: 75 Resp: 16 Temp: 36.5 ??C (97.7 ??F) SpO2: 97% Wt Readings from Last 3 Encounters: 04/28/19 81.6 kg (180 lb) 04/12/19 81.6 kg (180 lb) 03/30/19 79.9 kg (176 lb 3.2 oz) Physical Exam Gen: AOx3, conversing comfortably HEENT: EOMI, moist mucus membranes Neck: Supple, trachea midline CV: Regular rate, no JVD Pulm: Non-labored breathing Abd: Soft, nontender, nondistended; midline incision with carlos in place- inferior portion of incision open and packed (image below); ostomy pink and healthy with stool and gas in bag Ext: warm, SCDs in place Neuro: AMIN, no focal deficits Recent Labs Lab Units 04/30/19 0115 WBC K/cumm 4.5 HEMOGLOBIN g/dL 8.9* HEMATOCRIT % 27.7* Recent Labs Lab Units 05/01/19 0347 CO2 mmol/L 25 CREATININE mg/dL 0.67 GLUCOSE mg/dL 116 CALCIUM mg/dL 7.8* Scheduled Medications Medication Dose Route Frequency ??? ciprofloxacin (CIPRO) tablet 500 mg 500 mg oral BID - special ??? DULoxetine DR (CYMBALTA) extended release capsule 30 mg 30 mg oral Daily ??? enoxaparin (LOVENOX) syringe 40 mg 40 mg subcutaneous Daily-2099 ??? famotidine (PEPCID) tablet 20 mg 20 mg oral Daily ??? metroNIDAZOLE (FLAGYL) tablet 500 mg 500 mg oral TID ??? montelukast (SINGULAIR) tablet 10 mg 10 mg oral Nightly ??? oxybutynin (DITROPAN) tablet 5 mg 5 mg oral BID ??? simvastatin (ZOCOR) tablet 20 mg 20 mg oral Daily ??? sodium chloride 0.9% flush 0.5-20 mL 0.5-20 mL intra-catheter Q8H MAUREEN PRN Medications Medication Dose Route Frequency Last Dose ??? acetaminophen (TYLENOL) tablet 650 mg 650 mg oral Q4H PRN 650 mg at 04/29/19 1306 ??? influenza trivalent [id number] (FLUZONE HIGH DOSE) 180 mcg/0.5 mL vaccine (HIGH DOSE age 65 years and up) 0.5 mL 0.5 mL intramuscular During hospitalization ??? ondansetron ODT (ZOFRAN-ODT) disintegrating tablet 4 mg 4 mg oral Q6H PRN 4 mg at 05/01/19 0647 ??? oxyCODONE (ROXICODONE) tablet 5 mg 5 mg oral Q4H PRN 5 mg at 04/29/19 0539 ??? sodium chloride 0.9% flush 0.5-20 mL 0.5-20 mL intra-catheter PRN Assessment/Plan: -Pain- tylenol, oxycodone -Strict I/Os -Diet- regular diet -IVF- A0cweiCH @ 100 cc/hr -Home meds- continue cymbalta, ditropan, statin -Abx: continue Cipro/Flagyl -F/u blood cx -DVT ppx: Lovenox, SCDs, OOB during day -PT eval/treat Janelle Jacques MD 05/01/19 Cosigned by Greyson Reeves MD at 05/01/2019 2:14 PM CDT * Tika Alcocer OT - 04/30/2019 5:02 PM CDT Occupational Therapy Received new OT orders this date after discharging pt on 04/28/19. Spoke with pt regarding self-care and current functional status. Pt is ambulating halls with and reported no further concerns with self-care and functional mobility. Pt stated I am still doing everything myself and having my assist whenever I am in more pain. OT orders to be discontinued this date. Please re-order as needed and/or if functional decline occurs. Tika Alcocer OT 04/30/19 * Ryley Hall NP - 04/30/2019 11:11 AM CDT Colorectal Surgery Daily Progress Note [facility] 1950 [facility] DAY#3 Interval History: No acute events overnight. Doing well, denies complaints. Pain well-controlled. Vitals: 04/30/19 0453 BP: 135/60 Pulse: 69 Resp: 22 Temp: 36.8 ??C (98.2 ??F) SpO2: 99% Wt Readings from Last 3 Encounters: 04/28/19 81.6 kg (180 lb) 04/12/19 81.6 kg (180 lb) 03/30/19 79.9 kg (176 lb 3.2 oz) Physical Exam Gen: AOx3, conversing comfortably HEENT: EOMI, moist mucus membranes Neck: Supple, trachea midline CV: Regular rate, no JVD Pulm: Non-labored breathing Abd: Soft, nontender, nondistended; midline incision with carlos in place- inferior portion of incision open and packed. Moderate amount of drainage. Dry dressing applies. Ostomy pink and healthy with stool and gas in bag. Ext: warm, SCDs in place Neuro: AMIN, no focal deficits Recent Labs Lab Units 04/30/19 0115 WBC K/cumm 4.5 HEMOGLOBIN g/dL 8.9* HEMATOCRIT % 27.7* Recent Labs Lab Units 04/30/19 0115 CO2 mmol/L 24 CREATININE mg/dL 0.70 GLUCOSE mg/dL 118 CALCIUM mg/dL 7.9* Scheduled Medications Medication Dose Route Frequency ??? ciprofloxacin (CIPRO) tablet 500 mg 500 mg oral BID - special ??? DULoxetine DR (CYMBALTA) extended release capsule 30 mg 30 mg oral Daily ??? enoxaparin (LOVENOX) syringe 40 mg 40 mg subcutaneous Daily-2100 ??? famotidine (PEPCID) tablet 20 mg 20 mg oral Daily ??? metroNIDAZOLE (FLAGYL) tablet 500 mg 500 mg oral TID ??? montelukast (SINGULAIR) tablet 10 mg 10 mg oral Nightly ??? oxybutynin (DITROPAN) tablet 5 mg 5 mg oral BID ??? potassium chloride 40 mEq/520 mL in sodium chloride 0.9% (premix) 40 mEq 40 mEq intravenous Once ??? simvastatin (ZOCOR) tablet 20 mg 20 mg oral Daily ??? sodium chloride 0.9% flush 0.5-20 mL 0.5-20 mL intra-catheter Q8H MAUREEN PRN Medications Medication Dose Route Frequency Last Dose ??? acetaminophen (TYLENOL) tablet 650 mg 650 mg oral Q4H PRN 650 mg at 04/29/19 1306 ??? influenza trivalent [id number] (FLUZONE HIGH DOSE) 180 mcg/0.5 mL vaccine (HIGH DOSE age 65 years and up) 0.5 mL 0.5 mL intramuscular During hospitalization ??? oxyCODONE (ROXICODONE) tablet 5 mg 5 mg oral Q4H PRN 5 mg at 04/29/19 0539 ??? sodium chloride 0.9% flush 0.5-20 mL 0.5-20 mL intra-catheter PRN Assessment/Plan: -Acute pain control -Diet- regular diet -Saline locked IVF's -Home meds- continue cymbalta, ditropan, statin -Abx: PO Cipro and Flagyl for 5 days -F/u blood cx -DVT ppx: Lovenox, SCDs, OOB during day -PT eval/treat -Wound RN consult -Dispo planning -Dry packing to abdominal wound BID -BMP in am Ryley Hall NP 04/30/19 Cosigned by Greyson Reeves MD at 04/30/2019 11:24 AM CDT * Ryley Hall NP - 04/29/2019 10:37 AM CDT Colorectal Surgery Daily Progress Note [facility] 1950 [facility] DAY#2 Interval History: No acute events overnight. Doing well, denies complaints. Pain well-controlled. Vitals: 04/29/19 0850 BP: 126/59 Pulse: 76 Resp: 16 Temp: 36.7 ??C (98.1 ??F) SpO2: 98% Wt Readings from Last 3 Encounters: 04/28/19 81.6 kg (180 lb) 04/12/19 81.6 kg (180 lb) 03/30/19 79.9 kg (176 lb 3.2 oz) Physical Exam Gen: AOx3, conversing comfortably HEENT: EOMI, moist mucus membranes Neck: Supple, trachea midline CV: Regular rate, no JVD Pulm: Non-labored breathing Abd: Soft, nontender, nondistended; midline incision with carlos in place- inferior portion of incision open and packed. ostomy pink and healthy with stool and gas in bag. Ext: warm, SCDs in place Neuro: AMIN, no focal deficits Recent Labs Lab Units 04/29/19 0313 WBC K/cumm 6.0 HEMOGLOBIN g/dL 8.6* HEMATOCRIT % 26.0* Recent Labs Lab Units 04/29/19 0313 CO2 mmol/L 25 CREATININE mg/dL 0.85 GLUCOSE mg/dL 130 CALCIUM mg/dL 7.4* Scheduled Medications Medication Dose Route Frequency ??? ciprofloxacin (CIPRO) tablet 500 mg 500 mg oral BID - special ??? DULoxetine DR (CYMBALTA) extended release capsule 30 mg 30 mg oral Daily ??? enoxaparin (LOVENOX) syringe 40 mg 40 mg subcutaneous Daily-2099 ??? famotidine (PEPCID) tablet 20 mg 20 mg oral Daily ??? metroNIDAZOLE (FLAGYL) tablet 500 mg 500 mg oral TID ??? montelukast (SINGULAIR) tablet 10 mg 10 mg oral Nightly ??? oxybutynin (DITROPAN) tablet 5 mg 5 mg oral BID ??? simvastatin (ZOCOR) tablet 20 mg 20 mg oral Daily ??? sodium chloride 0.9% flush 0.5-20 mL 0.5-20 mL intra-catheter Q8H MAUREEN PRN Medications Medication Dose Route Frequency Last Dose ??? acetaminophen (TYLENOL) tablet 650 mg 650 mg oral Q4H PRN ??? influenza trivalent [id number] (FLUZONE HIGH DOSE) 180 mcg/0.5 mL vaccine (HIGH DOSE age 65 years and up) 0.5 mL 0.5 mL intramuscular During hospitalization ??? oxyCODONE (ROXICODONE) tablet 5 mg 5 mg oral Q4H PRN 5 mg at 04/29/19 0539 ??? sodium chloride 0.9% flush 0.5-20 mL 0.5-20 mL intra-catheter PRN Assessment/Plan: -Pain- tylenol, oxycodone -Strict I/Os -Diet- regular diet - Saline locked IVF's -Home meds- continue cymbalta, ditropan, statin -Abx: PO Cipro and Flagyl for 5 days -F/u blood cx -DVT ppx: Lovenox, SCDs, OOB during day -PT eval/treat - Wound RN consult - Dispo planning Ryley Hall NP 04/29/19 Cosigned by Greyson Reeves MD at 04/29/2019 11:51 AM CDT * Priscilla Aguilar RN - 04/28/2019 9:50 AM CDT 04/28/19 0948 Information Information Obtained From Patient Referral Data Referral Source [employer] Worker Referral Reason Discharge Planning Prior to Admission Primary Caregiver Self Support system contact info (name, phone, availablity) spouseAlejo [phone] Home Care Services Yes Type of Home Care Services Nurse visit Home care service name and phone number [facility] Durable Medical Equipment None Living Arrangements Spouse/significant other Type of Residence Private residence Potential Discharge Needs Home Health [facility] Pt/Family agrees with Anticipated Level of Care Yes Patient expects to be discharged to: Private residence Dialysis No Behavioral Health Services No Communications Fiduciary Responsibility Patient/Designated decision maker was informed of [facility] fiduciary relationship as necessary Impression: Patient is a 68 yo F with metastatic ileal neuroendocrine tumor, presenting with a large bowel obstruction??s/p Ex Lap + End colostomy. Endocrine consulted for hypocalcemia. Additional Information/Options Discussed: Patient interviewed at bedside for initial assessment. Address and phone verified to face sheet. HHC: patient open with [facility] HH, CM sent referral through [facility] for a resumption of services and CM spoke with Yenny regarding ADD Transportation: , Alejo Problem: ensure safe discharge when medically stable Plan/Goal Includes: CM to follow for needs Insurance verified as: Medicare and AARP Admit Source: non health care facility PCP: verified as Dr. Julio César Briseno Pharmacy: patient verifies she has prescription coverage Based on a comprehensive family assessment, assistance with instrumental activities of daily livingafter discharge will be provided by patient. Through the course of our work I determined that possesses the skill and ability to provideand monitor the care of the patient when he or she returns home. has the capacity to provide/monitor/arrange for the care of the patient. Finally, we determined that has the knowledgeof available resources and that combining them with their existing resources will suffice to sustain and care for the patient when he or she returns home. The treatment team is aware of this information. All are in agreement with the aftercare plan. * Janelle Jacques MD - 04/28/2019 8:18 AM CDT Images from the original note were not included. Colorectal Surgery Daily Progress Note [facility] 1950 [facility] DAY#1 Interval History: No acute events overnight. Doing well, denies complaints. Pain well-controlled. Vitals: 04/28/19 0330 BP: 94/62 Pulse: 78 Resp: 20 Temp: 36.6 ??C (97.9 ??F) SpO2: 98% Wt Readings from Last 3 Encounters: 04/28/19 81.6 kg (180 lb) 04/12/19 81.6 kg (180 lb) 03/30/19 79.9 kg (176 lb 3.2 oz) Physical Exam Gen: AOx3, conversing comfortably HEENT: EOMI, moist mucus membranes Neck: Supple, trachea midline CV: Regular rate, no JVD Pulm: Non-labored breathing Abd: Soft, nontender, nondistended; midline incision with carlos in place- inferior portion of incision open and packed (photo below); ostomy pink and healthy with stool and gas in bag Ext: warm, SCDs in place Neuro: AMIN, no focal deficits Recent Labs Lab Units 04/28/19 0437 WBC K/cumm 8.0 HEMOGLOBIN g/dL 9.3* HEMATOCRIT % 28.6* Recent Labs Lab Units 04/28/19 0437 CO2 mmol/L 25 CREATININE mg/dL 1.21* GLUCOSE mg/dL 145 CALCIUM mg/dL 7.8* Scheduled Medications Medication Dose Route Frequency ??? cefepime (MAXIPIME) 2,000 mg/20 mL in sterile water (premix) 2,000 mg 2,000 mg intravenous [id number] ??? DULoxetine DR (CYMBALTA) extended release capsule 30 mg 30 mg oral Daily ??? enoxaparin (LOVENOX) syringe 40 mg 40 mg subcutaneous Daily-2100 ??? metroNIDAZOLE (FLAGYL) 500 mg/100 mL in sodium chloride (premix) 500 mg 500 mg intravenous Q8H MAUREEN ??? montelukast (SINGULAIR) tablet 10 mg 10 mg oral Nightly ??? oxybutynin (DITROPAN) tablet 5 mg 5 mg oral BID ??? simvastatin (ZOCOR) tablet 20 mg 20 mg oral Daily ??? sodium chloride 0.9% flush 0.5-20 mL 0.5-20 mL intra-catheter Q8H MAUREEN ??? vancomycin 1,250 mg/262.5 mL in sodium chloride 0.9% (premix) 1,250 mg 15 mg/kg intravenous BID PRN Medications Medication Dose Route Frequency Last Dose ??? acetaminophen (TYLENOL) tablet 650 mg 650 mg oral Q4H PRN ??? oxyCODONE (ROXICODONE) tablet 5 mg 5 mg oral Q4H PRN ??? sodium chloride 0.9% flush 0.5-20 mL 0.5-20 mL intra-catheter PRN Assessment/Plan: -Pain- tylenol, oxycodone -Strict I/Os -Diet- regular diet -IVF- [id number] @ 100 cc/hr -Home meds- continue cymbalta, ditropan, statin -Abx: continue Vanc/Cefe/Flagyl -F/u blood cx -DVT ppx: Lovenox, SCDs, OOB during day -PT eval/treat Janelle Jacques MD 04/28/19 Cosigned by Greyson Reeves MD at 04/28/2019 12:10 PM CDT documented in this encounter Procedure Notes * Kateryna Russ RN - 05/01/2019 5:32 PM CDT Vascular Access Nurse: Procedure Note Summary of treatment provided to patient today is as follows : . Bedside Procedure Time out/Checklist (last 4 hours) Pre-Op Checklist Row Name 05/01/19 1530 05/01/19 1430 Patient/Chart Verification Arm Bands On ID;Allergies -BM ID;Allergies -BM User Guzman (r) = Recorded By, (t) = Taken By, (c) = Cosigned By Initials Name Barb Casper RN Vascular Access Documentation (last 4 hours) [facility] Additional Procedures Row Name 05/01/19 1730 05/01/19 1430 Procedures Line Type Peripheral -MM -- Time in 1715 -MM -- Time out 1732 -MM -- Time Calculation (min) 17 min -MM -- Vascular Access Procedures Difficult IV start -MM -- Canceled on arrival Patient refused MD to bedside and discussed reasons for IV, pt agreeable -MM -- Comfort Measures Position of comfort -MM -- Patient Response Tolerated (no change in status) -MM -- Source Venous -MM -- Notification Reason for Communication -- Status update;Review case -BM Role of Person Notified -- Nurse -BM Method of Communication -- Face to face -BM Response -- At bedside -BM Peripheral IV 05/01/19 22 G Right;Anterior Forearm IV Properties Placement Date: 05/01/19 -MM Placement Time: 173 -MM Type: Angiocath -MM Size (Gauge): 22 G -MM Location Orientation: Right;Anterior -MM Location: Forearm -MM Site Prep: Chlorhexidine -MM Comfort Measures: Position of comfort -MM Local Anesthetic: None -MM Technique: Anatomical landmarks -MM Inserted by: Laura Zabala RN -MM Insertion attempts: 1 -MM Patient Tolerance: Tolerated well-MM Site Assessment Clean and dry -MM -- Line Status Single Blood return noted;Flushes easily;Saline locked -MM -- Dressing Type Transparent -MM -- Dressing Status Clean, dry, intact -MM -- Dressing Intervention Dressing changed -MM -- User Guzman (r) = Recorded By, (t) = Taken By, (c) = Cosigned By Initials Name IRVNIG Garcia RN Plan: Follow up: Kateryna Russ RN * Mary Rosado RN - 05/01/2019 11:12 AM CDT Vascular Access Nurse: Procedure Note Summary of treatment provided to patient today is as follows : . Bedside Procedure Time out/Checklist (last 4 hours) Pre-Op Checklist Row Name 05/01/19 1019 Patient/Chart Verification Arm Bands On ID;Allergies -BM User Guzman (r) = Recorded By, (t) = Taken By, (c) = Cosigned By Initials Name BM Barb Chuck Casper RN Vascular Access Documentation (last 4 hours) [facility] Additional Procedures Row Name 05/01/19 1111 Procedures Time in 1045 -FS Time out 1050 -FS Time Calculation (min) 5 min -FS Vascular Access Procedures Canceled on arrival -FS Canceled on arrival Procedure canceled RN states pt may refuse IV. RN to call [facility] if pt agrees to or needs IV. consult completed. -FS User Guzman (r) = Recorded By, (t) = Taken By, (c) = Cosigned By Initials Name FS Mary Rosado RN Plan: Follow up: Mary Rosado RN documented in this encounter Consult Notes * Pamela Elizabeth RN - 05/01/2019 4:12 PM CDT Wound/Ostomy Consult Note Ostomy Consult Note Date of Admission: 04/27/2019 9:31 PM Today's Date: 05/01/19 Current Hospital Day: Hospital Day: 5 Reason for Consult: colostomy education/assessment. Nutrition Body mass index is 31.89 kg/m??. Adult Diet Regular Support Surfaces Type of Bed: foam Type of Sitting Surface: foam Ostomy Assessment: Type of Ostomy: colostomy Stoma Shape: round Stoma Location: LLQ Mucocutaneous Junction: Intact Appliance Intact: Yes Peristomal Ulcer: Yes Peristomal Skin Treatment: Barrier Wipe Pouch Supplies: coloplast flex and adapt ring Pouch Type: at bedside Drainage: To gravity Not to gravity Excretions: Stool Effluent, Gas, Bile, None Excretion Color: brown dark liquid Comments: pouch changed with spouse observation and minimal participation. Requires multiple repeats of instruction. Education: Plan of care discussed with: RN Questions answered: Yes Wound/Ostomy will follow patient: yes Any questions or concerns please contact the Wound/Ostomy department at [phone] Pamela Elizabeth RN * Pamela Elizabeth RN - 04/30/2019 2:26 PM CDTAssociated Order(s): CONSULT TO WOUND CARE; CONSULT TO WOUND CARE Wound/Ostomy Service Follow up Consult Note Admit Date: 04/27/2019 9:31 PM Today's Date: 04/30/19 Day of Hospital Stay: Hospital Day: 4 Reason for Follow up: abdominal wound and colostomy Nutrition Body mass index is 31.89 kg/m??. Adult Diet Regular Support Surfaces Type of Bed: foam Type of Sitting Surface:foam Skin/Wound Assessment : Dressing changed by resident this AM is monitoring for drainage. Pouch remains intact. Recommendations: Continue as ordered Education: home care giver purpose and goals. Plan of care discussed with: RN patient [employer] Questions answered: Yes Wound/Ostomy will follow patient: yes Any questions or concerns please contact the Wound/Ostomy department at [phone] Pamela Elizabeth RN * Gregory Menchaca MD - 04/27/2019 10:46 PM CDTAssociated Order(s): IP CONSULT TO COLORECTAL SURGERY Images from the original note were not included. [facility] CRS Surgery Consult Note Date of Evaluation: 04/27/19 Sex: female Date of : 1950 Assessment: 68 yo F w/ HLD, HTN, and metastatic ileal neuroendocrine tumor (s/p exploratory laparotomy, BSO, partial omentectomy, and right colectomy in 2016) s/p ex lap and diverting loop colostomy 04/13/2019 for large bowel obstruction. Discharged 04/23/2019 and now presenting with c/f wound infection. Labs notable for WBC 10.8, lactate 2.4, ANNE-MARIE (Cr 1.29). CT showing large area of phlegmonous change in the anterior abdominal soft tissues just deep the the skin carlos and c/f developing abscess. Plan: - Admit to colorectal surgery - NPO, mIVF - Broad spectrum abx (vanc/cefe/flagyl) - DVT ppx - Will consider potential drainage (IR vs operative) Physician requesting consult: Petros Menon,* with the emergency department has asked that we see [facility] for evaluation following medical condition. HPI: This is a 68-year-old female with HLD, HTN, and metastatic ileal neuroendocrine tumor (s/p exploratory laparotomy, BSO, partial omentectomy, and right colectomy in 2016) who presented on 04/12/2019 with concern for large bowel obstruction. She was taken to the operating room on 04/13/[address] Reeves for exploratory laparotomy and diverting loop colostomy. This was complicated by extensive lysis of adhesion and obvious evidence of peritoneal metastasis. She was ultimately discharged home on 04/23/2019. She presents today with concern for worsening erythema around her wound. She states that it is become more red since Saturday. It is associated with increased swelling and pain. She has noticed scant drainage. She denies fevers but endorses chills. She otherwise denies chest pain, shortness of breath, nausea. She has had poor oral intake. She empties her ostomy several times per day and does not endorse a change in caliber or appearance. On presentation, she is afebrile 36.4 C, and otherwise hemodynamically stable. Labs are notable forWBC 10.8, hemoglobin 10.6, platelets 322, lactate 2.4, elevated creatinine 1.29. CT showing c/f developing abscess. Allergies: Allergies Allergen Reactions ??? Ezetimibe-Simvastatin Muscle pain and Unknown Muscle weakness ??? Ramipril Cough Medications: Current Facility-Administered Medications on File Prior to Encounter Medication Dose Route Frequency Provider Last Rate Last Dose ??? L-arginine 1.25%/L-lysine 1.25% infusion 1,000 mL 1,000 mL intravenous Continuous Meagan Amaya MD Current Outpatient Medications on File Prior to Encounter Medication Sig Dispense Refill ??? ascorbic acid, vitamin C, 500 mg capsule Take 1 tablet by mouth. ??? cholecalciferol (VITAMIN D-3) 2,000 unit capsule Take 1 capsule (2,000 Units total) by mouth daily 30 capsule 2 ??? clotrimazole-betamethasone (LOTRISONE) cream clotrimazole-betamethasone 1 %- 0.05 % topical cream APPLY EXTERNALLY TO ABDOMEN TWICE DAILY NEEDED ??? coenzyme [id number] (CO Q-10, WITH VIT E,) 100-5 mg-unit capsule ??? DULoxetine DR (CYMBALTA) 30 mg capsule Take 1 capsule (30 mg total) by mouth daily 30 capsule 2 ??? enoxaparin (LOVENOX) 40 mg/0.4 mL syringe Inject 0.4 mL (40 mg total) under the skin daily for 21 days 8.4 mL 0 ??? fluticasone propionate (FLONASE) 50 mcg/actuation nasal spray fluticasone propionate 50 mcg/actuation nasal spray,suspension ??? hydrocortisone (PROCTOSOL HC) 2.5 % rectal cream Proctosol HC 2.5 % topical cream perineal applicator APPLY RECTALLY THREE TIMES A DAY ??? montelukast (SINGULAIR) 10 mg tablet montelukast 10 mg tablet ??? olmesartan-hydrochlorothiazide (BENICAR HCT) 20-12.5 mg per tablet Take 1 tablet by mouth daily ??? oxybutynin (DITROPAN) 5 mg tablet Take 1 tablet (5 mg total) by mouth 2 (two) times a day for 14 days 28 tablet 0 ??? oxyCODONE (ROXICODONE) 5 mg immediate release tablet Take 1 tablet (5 mg total) by mouth every 4 (four) hours as needed for pain 10 tablet 0 ??? simvastatin (ZOCOR) 20 mg tablet Past Medical History: Past Medical History: Diagnosis Date ??? Cancer (CMS/HCC) ??? Family history of malignant hyperthermia grandson - questionable ??? GERD (gastroesophageal reflux disease) ??? Hypercholesteremia ??? Hypertension ??? Motion sickness ??? Personal history of other diseases of the digestive system History of hemorrhoids - (Added by TW Conv) ??? PONV (postoperative nausea and vomiting) Surgical History: Past Surgical History: Procedure Laterality Date ??? GALLBLADDER SURGERY Gallbladder Surgery - (Added by TW Conv) ? ? IR PICC LINE PLACEMENT > 5 YEARS N/A 12/23/2018 ? ? IR PICC LINE PLACEMENT > 5 YEARS N/A 02/17/2019 ? ? MT REMOVAL OF TONSILS,<12 Y/O Tonsillectomy - (Added by TW Conv) ??? MT TOTAL ABDOM HYSTERECTOMY Hysterectomy - (Added by TW Conv) Social: Tobacco: Denies EtOH: Denies Drugs: Denies Family History: Reviewed REVIEW OF SYSTEMS General- chills, decreased oral intake, malaise HEENT- no changes in vision, hearing, congestion CV- no chest pain or palpitations Resp- no shortness of breath, no cough GI- pain around incision, erythema, scant drainage - no pain with urination, urinary frequency or urgency MSK- no changes in strength, extremity swelling Integument- no new rashes, lumps, or bumps Heme- no easy bruising Endo- no significant changes in weight, no heat or cold intolerance Neuro- No changes in memory or balance Psych- No changes in mood PHYSICAL EXAM: Vitals: 04/27/19 2200 BP: 98/47 Pulse: 71 Resp: 19 Temp: SpO2: 99% Physical Exam Constitutional: She is oriented to person, place, and time. She appears well- developed and well-nourished. HENT: Head: Normocephalic and atraumatic. Eyes: Conjunctivae and EOM are normal. Neck: Normal range of motion. Cardiovascular: Normal rate and regular rhythm. Pulmonary/Chest: Effort normal. Abdominal: Soft. She exhibits no distension. Erythema worse around inferior aspect of wound, see photo below Musculoskeletal: Normal range of motion. Neurological: She is alert and oriented to person, place, and time. Skin: Skin is warm. Psychiatric: She has a normal mood and affect. Labs: Laboratory review: Lab results in the last 24 hours: Recent Results (from the past 24 hour(s)) POCT lactate Collection Time: 04/27/19 9:00 PM Result Value Ref Range Lactate POC i-STAT 2.4 (H) 0.7 - 2.2 mmol/L CBC with auto differential Collection Time: 04/27/19 9:10 PM Result Value Ref Range WBC 10.8 (H) 3.8 - 9.9 K/cumm Hgb 10.6 (L) 11.9 - 15.5 g/dL Hct 33.4 (L) 35.6 - 45.5 % Plt 322 150 - 400 K/cumm MPV 10.6 9.1 - 12.3 fL RBC 3.71 (L) 3.90 - 5.20 M/cumm MCV 90.0 81.3 - 96.4 fL MCH 28.6 27.1 - 33.3 pg MCHC 31.7 (L) 32.3 - 35.7 g/dL RDW CV 14.1 11.1 - 14.9 % RDW SD 46.0 35.7 - 48.1 fL NRBC abs 0.00 0.00 - 0.01 K/cumm Comprehensive metabolic panel Collection Time: 04/27/19 9:10 PM Result Value Ref Range Sodium 134 (L) 135 - 145 mmol/L Potassium, pl 2.9 (L) 3.3 - 4.9 mmol/L Chloride 95 (L) 97 - 110 mmol/L CO2 25 22 - 32 mmol/L Anion gap 14 2 - 15 mmol/L BUN 16 8 - 25 mg/dL Creatinine 1.29 (H) 0.60 - 1.10 mg/dL Glucose 209 (H) 70 - 199 mg/dL Calcium 9.0 8.5 - 10.3 mg/dL Bilirubin, total 0.9 0.1 - 1.2 mg/dL Protein, pl 6.9 6.5 - 8.5 g/dL Albumin 2.8 (L) 3.5 - 5.0 g/dL Alk phos 216 (H) 40 - 130 Units/L ALT 36 7 - 45 Units/L AST 49 (H) 10 - 45 Units/L Differential, auto Collection Time: 04/27/19 9:10 PM Result Value Ref Range Neutrophil abs 9.3 (H) 1.7 - 6.5 K/cumm Imm gran abs 0.2 (H) 0.0 - 0.1 K/cumm Lymphocyte abs 0.4 (L) 0.8 - 3.3 K/cumm Monocyte abs 0.9 (H) 0.2 - 0.8 K/cumm Eosinophil abs 0.0 0.0 - 0.5 K/cumm Basophil abs 0.0 0.0 - 0.1 K/cumm Neutrophil pct 85.9 % Imm gran pct 1.4 % Lymphocyte pct 3.4 % Monocyte pct 8.3 % Eosinophil pct 0.5 % Basophil pct 0.5 % Imaging: Chest X-ray Pa And Lat (if Patient Is Stable Enough For Transport To Radiology) Result Date: 04/28/2019 2 view examination of the chest is submitted with comparison to prior chest CT dated 03/23/2019. Nopneumothorax, pleural effusion, or pulmonary edema. No focal consolidation. The mediastinal contours are within normal limits. There is moderate cardiomegaly. 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 Dictated by: Jaylen Ennis M.D. Ct Abdomen/pelvis W Contrast Result Date: 04/28/2019 1. Interval postsurgical changes of divided loop colostomy in the left lower quadrant. 2. Large area of phlegmonous change in the anterior abdominal soft tissues just deep the the skin carlos. Alongthe superior aspect of this phlegmonous change is a more circumscribed area which may represent a developing organized fluid collection. 3. Stable metastatic disease along the liver, undersurface of the diaphragm, and vaginal cuff. Dictated by: Minh Tom M.D. Assessment: 68 yo F w/ HLD, HTN, and metastatic ileal neuroendocrine tumor (s/p exploratory laparotomy, BSO, partial omentectomy, and right colectomy in 2016) s/p ex lap and diverting loop colostomy 04/13/2019 for large bowel obstruction. Discharged 04/23/2019 and now presenting with c/f wound infection. Labs notable for WBC 10.8, lactate 2.4, ANNE-MARIE (Cr 1.29). CT showing large area of phlegmonous change in the anterior abdominal soft tissues just deep the the skin carlos and c/f developing abscess. Plan: - Admit to colorectal surgery - NPO, mIVF - Broad spectrum abx (vanc/cefe/flagyl) - DVT ppx - Will consider potential drainage (IR vs operative) Attending: Dr. Armen Menchaca MD Resident Physician, General Surgery [facility] [place], [place] April 27, 2019 10:48 PM Cosigned by Yelitza Ayers MD at 04/28/2019 9:56 AM CDT Associated attestation - Yelitza Ayers MD - 04/28/2019 9:56 AM CDT Spoke with resident overnight and CT reviewed by me with large abscess. Carlos removed with 500cc of copious pus expressed. Abx Local wound care Admit for observation documented in this encounter Nursing Notes * Pamela Elizabeth RN - 05/04/2019 4:40 PM CDT Wound/Ostomy Consult Note Ostomy Consult Note Date of Admission: 04/27/2019 9:31 PM Today's Date: 05/04/19 Current Hospital Day: Hospital Day: 8 Reason for Consult: post op colostomy education. Nutrition Body mass index is 31.89 kg/m??. Adult Diet Regular Support Surfaces Type of Bed: foam Type of Sitting Surface: foam Ostomy Assessment: Type of Ostomy: colostomy Stoma Shape: round inferior portion recessed Stoma Location: LLQ Mucocutaneous Junction: Mucocutaneous Junction Separation: Deep Mucocutaneous Junction Treatment: Barrier Wipe, Powder Appliance Intact: Yes Peristomal Ulcer: No Peristomal Skin Treatment: Absorptive Dressing, Barrier Wipe, Powder Pouch Supplies: at bedside Pouch Type: coloplast flex light convexity Drainage: Not to gravity Excretions: Stool Gas Excretion Color: brown Comments: 05/04/19929 Colostomy End RLQ Placement Date/Time: 04/13/191824 Colostomy Type: End Location: RLQ Stomal Appliance 2 piece (Comment size);Convex;Changed Stoma Assessment Red;Round;Recessed Peristomal Assessment Intact Mucocutaneous Junction/Treatment (specify o'clock location) (5-7) Interventions Appliance change;Skin prep applied patient and spouse refused to complete pouch change spouse observed. Education: Plan of care discussed with: RN patient Questions answered: Yes Wound/Ostomy will follow patient: yes Any questions or concerns please contact the Wound/Ostomy department at [phone] Pamela Elizabeth RN * Pamela Elizabeth RN - 04/29/2019 5:34 PM CDT Wound/Ostomy Consult Note Ostomy Consult Note Date of Admission: 04/27/2019 9:31 PM Today's Date: 04/29/19 Current Hospital Day: Hospital Day: 3 Reason for Consult: midline abdominal wound and stoma education Nutrition Body mass index is 31.89 kg/m??. Adult Diet Regular Support Surfaces Type of Bed: foam Type of Sitting Surface: foam Ostomy Assessment: Type of Ostomy: colostomy Stoma Shape: round Stoma Location: LLQ Mucocutaneous Junction: Mucocutaneous Junction Separation: Superficial Mucocutaneous Junction Treatment: Barrier Wipe, Powder Appliance Intact: Yes Peristomal Ulcer: No Peristomal Skin Treatment: Absorptive Dressing, Barrier Wipe, Powder Pouch Supplies: at bedside Pouch Type: coloplast flex with adapt ring and blet Drainage: Not to gravity Excretions: Stool Gas Excretion Color: brown soft Comments: 04/29/191729 Colostomy End RLQ Placement Date/Time: 04/13/191824 Colostomy Type: End Location: RLQ Stomal Appliance 1 piece;Intact;Changed Stoma Assessment Red (distal edge is now prolapsed ) Peristomal Assessment Denuded;Maceration;Painful;Red Mucocutaneous Junction/Treatment (specify o'clock location);Powder;Barrier wipe (5-7) Interventions Appliance change Wound care comopelted at this time to midline open incision see flowsheet Education: Instructed patient and daughter wound care purpose and goals. Plan of care discussed with: patient PAPER BOX MAKER ryley Questions answered: Yes Wound/Ostomy will follow patient: yes Any questions or concerns please contact the Wound/Ostomy department at [phone] Pamela Elizabeth RN * Pamela Elizabeth RN - 04/28/2019 1:44 PM CDT Wound/Ostomy Service Initial Consult Note Admit Date: 04/27/2019 9:31 PM Today's Date: 04/28/19 Day of Hospital Stay: Hospital Day: 2 Reason for Consult: abdominal wound assessment Nutrition Body mass index is 31.89 kg/m??. Adult Diet Regular Support Surfaces Type of Bed: foam Type of Sitting Surface: foam Skin/Wound Assessment : 04/28/19 1000 Surgical Site 04/13/19 Abdomen wound/ostomy following last assessment 04/28/19 Date First Assessed/Time First Assessed: 04/13/19 1555 Location: Abdomen Wound Description (Comments): wound/ostomy following last assessment 04/28/19 Site Assessment Clean;[place]-wound Assessment Intact;Color normal for ethnicity (incision superior and inferior. ) Closure Unapproximated Drainage Amount Small Drainage Description Serosanguineous Drainage Odor No odor Dressing Status Changed Dressing Moist to dry Wound Length (cm) 1.5 cm Wound Width (cm) 2 cm Wound Depth (cm) 3.5 Calculated Wound Size (cm^3) 10.5 cm^2 Education: home care giver purpose and goals. Will evaluate tomorrow for new dressing and ostomy care. Recommendations: Continue moist to dry goal debridement. Plan of care discussed with: RN Questions answered: Yes Wound/Ostomy will follow patient: yes Any questions or concerns please contact the Wound/Ostomy department at [phone] Pamela Elizabeth RN documented in this encounter ED Notes * Petros Menon MD - 04/27/2019 9:33 PM CDT HPI Chief Complaint Patient presents with ??? Wound Infection HPI Patient is a 68 yo F with metastatic ileal neuroendocrine tumor, presenting with a large bowel obstruction??s/p recent ex lap + end colostomy two weeks ago per colorectal surgery ([facility]). Over the past few days, the patient has noticed increased erythema + induration over the incision site as well as some drainage. She has not had any problems with her colostomy. She denies any fever, chills, or nightsweats. She denies any chest pain, SOB, nausea, vomiting, or appetite change. She is accompanied by several family members. Patient History Patient Active Problem List Diagnosis Date Noted ??? Acute blood loss anemia 04/17/2019 ??? Hypocalcemia 04/14/2019 ??? ANNE-MARIE (acute kidney injury) (CMS/HCC) 04/14/2019 ??? Large bowel obstruction (CMS/HCC) 04/12/2019 ??? Bone metastasis (CMS/HCC) 03/02/2019 ??? Neuro-endocrine carcinoma (CMS/HCC) 06/18/2018 ??? 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 Neuroendocrine carcinoma (CMS/HCC) 10/24/2015 Past Medical History: Diagnosis Date ??? Cancer (CMS/HCC) ??? Family history of malignant hyperthermia grandson - questionable ??? GERD (gastroesophageal reflux disease) ??? Hypercholesteremia ??? Hypertension ??? Motion sickness ??? Personal history of other diseases of the digestive system History of hemorrhoids - (Added by TW Conv) ??? PONV (postoperative nausea and vomiting) Past Surgical History: Procedure Laterality Date ??? GALLBLADDER SURGERY Gallbladder Surgery - (Added by TW Conv) ? ? IR PICC LINE PLACEMENT > 5 YEARS N/A 12/23/2018 ? ? IR PICC LINE PLACEMENT > 5 YEARS N/A 02/17/2019 ? ? MT REMOVAL OF TONSILS,<12 Y/O Tonsillectomy - (Added by TW Conv) ??? MT TOTAL ABDOM HYSTERECTOMY Hysterectomy - (Added by [...] week ??? Drug use: No Social History Patient does not qualify to have social determinant information on file (likely too young). Social History Narrative : (Added by TW Conv) Retired : (Added by TW Conv) Occasional alcohol use : (Added by TW Conv) Review of Systems Review of Systems Constitutional: Negative for chills, fatigue and fever. HENT: Negative. Eyes: Negative. Respiratory: Negative. Cardiovascular: Negative. Gastrointestinal: Negative. Endocrine: Negative. Genitourinary: Negative. Musculoskeletal: Negative. Skin: Abdominal surgical incision w/ redness, swelling, and drainage Allergic/Immunologic: Negative. Neurological: Negative. Hematological: Negative. All other systems reviewed and are negative. Physical Exam ED Triage Vitals Temp Pulse Resp BP SpO2 04/27/19195404/27/19195404/27/19195404/27/19195404/27/191954 36.4 ??C (97.5 ??F) 85 19 (!) 95/44 100 % Temp src Heart Rate Source Patient Position BP Location FiO2 (%) 04/27/19195404/28/1932904/28/1932904/28/19329 -- Oral Monitor Lying Left arm Physical Exam Vitals signs and nursing note reviewed. Constitutional: Appearance: Normal appearance. HENT: Head: Normocephalic and atraumatic. Nose: Nose normal. No congestion or rhinorrhea. Mouth/Throat: Mouth: Mucous membranes are moist. Pharynx: No oropharyngeal exudate or posterior oropharyngeal erythema. Eyes: Extraocular Movements: Extraocular movements intact. Conjunctiva/sclera: Conjunctivae normal. Pupils: Pupils are equal, round, and reactive to light. Neck: Musculoskeletal: Normal range of motion and neck supple. Cardiovascular: Rate and Rhythm: Normal rate and regular rhythm. Pulses: Normal pulses. Heart sounds: Murmur present. Pulmonary: Effort: Pulmonary effort is normal. Breath sounds: Normal breath sounds. Abdominal: General: Bowel sounds are normal. Palpations: Abdomen is soft. Tenderness: There is tenderness. There is no guarding or rebound. Comments: Abdominal surgical incision notable for surrounding erythema and induration; no active drainage. Colostomy w/ yellow/brown liquid stool. Musculoskeletal: Normal range of motion. Skin: General: Skin is warm and dry. Capillary Refill: Capillary refill takes less than 2 seconds. Neurological: General: No focal deficit present. Mental Status: She is alert and oriented to person, place, and time. Psychiatric: Mood and Affect: Mood normal. Behavior: Behavior normal. Thought Content: Thought content normal. Judgment: Judgment normal. MDM MDM Number of Diagnoses or Management Options Abscess: Diagnosis management comments: Recent colorectal surgery w/ erythema/induration at surgical incision concerning for surgical site infection (cellulitis vs abscess). Will check labs, CT abdo/pelvis, consult surgery, and likely start empiric antibiotics. Amount and/or Complexity of Data Reviewed Clinical lab tests: reviewed Attending Summary of Care I have seen and examined the patient on 04/27/2019 . I agree with the findings and plan of care as documented in the resident's note. 68y F hx metastatic neuroendocrine tumor s/p bowel resection + colostomy 2 weeks ago, here w/ worsening pain + redness + swelling to abdominal wall just above umbillicus. No fever, chills, nightsweats. Exam- HEENT unremarkable, heart sounds w/ systolic murmur, lungs CTAB, abdomen soft, large area of induration/erythema to abdominal wall, no extremity edema. DDX: abdominal wall cellulitis vs abscess vs other SSI. Check labs, CT abdo/pelvis, empiric antibiotics, consult colorectal surgery, anticipate admission. ED Course as of Apr 28 1123 Time: 04/27 2119 Comment: Patient is a 68 yo female s/p colostomy by Dr Reeves approximately 2 weeks ago. She presents w a one day history of lower abdominal pain, redness, and erythema associated with the lower end of incision. No known fevers, chills, or nausea. Plan IV placement, labs, IVFs, and CT scan. Exam demonstrates a bilateral lower abdominal cellulitis associated with the incision site/carlos. Activelylooking for room and will consult Surgery. By: Felicity Sanders MD Time: 04/28 0030 Comment: Surgery note stating Vanc/Cefe/Flagyl and admit to Colorectal Surgery for potential IR versus OR drainage. Will call to confirm, and plan to admit. By: Tammy Irizarry MD Time: 04/28 011 Comment: Surgery lanced the fluid collection at bedside and copious fluid was extracted. Will admit. Lactate down to 1.7 after fluids. By: Tammy Irizarry MD Abscess Petros Menon MD 04/29/19 0898 * Sabrina Verdin RN - 04/27/2019 9:31 PM CDT Bed: ED2-22 Expected date: Expected time: Means of arrival: Car Comments: Sabrina Verdin RN 04/27/192130 * Aundrea Rodarte RN - 04/27/2019 7:57 PM CDT Patient had a colostomy creation two weeks ago here. Redness and drainage present over the past couple of days over staple site. Colostomy is functioning fine. Denies fevers/chills. Was sent here by MD Reeves. Pain is exacerbated by movements documented in this encounter Miscellaneous Notes * Plan of Care - Priscilla Aguilar RN - 05/04/2019 8:13 AM CDT CM made aware this morning by PAPER BOX MAKER that patient will need to discharge with wound vac. CM faxed orders, wound vac script and supporting [facility] by text regardinganticipated discharge of today. * Plan of Care - Joy Perkins RN - 05/04/2019 3:14 AM CDT Problem: Health Behavior: Goal: Understanding of discharge needs will improve Outcome: Progressing Problem: Lack of Knowledge: Goal: Ability to state ways to decrease the risk of falls will improve Outcome: Progressing Problem: Safety: Goal: Will remain free from falls Outcome: Progressing Goal: Will remain free from injury from falls Outcome: Progressing Goal: Will remain free from falls and injury in home environment Outcome: Progressing Problem: Skin Integrity: Goal: Signs of wound healing will improve Outcome: Progressing Goal: Skin integrity will improve Outcome: Progressing Goal: Will show no evidence of further tissue damage Outcome: Progressing Problem: Cardiac: Goal: Knowledge of VTE will improve by discharge Outcome: Progressing Problem: Activity: Goal: Mobility will improve Outcome: Progressing Problem: Lack of Knowledge: Goal: Understanding of ways to prevent future skin breakdown will improve Outcome: Progressing Goal: Ability to identify appropriate dietary choices will improve Outcome: Progressing Problem: Nutritional: Goal: Dietary intake will improve Outcome: Progressing Goal: Ability to maintain a balanced intake and output will improve Outcome: Progressing Problem: Skin Integrity: Goal: Risk for impaired skin integrity will decrease Outcome: Progressing Goal: Ability to demonstrate warm and dry skin will improve Outcome: Progressing Goal: Circulation will improve to fullest extent possible Outcome: Progressing Goals: VSS, monitor I&Os, pain management Summary: Patient's vitals are stable. Her I&Os were monitored throughout the shift. Her pain has been well controlled throughout the shift. She is up ad mayela. She is able to express needs. Will continue to monitor. * Plan of Care - Jef Joshi RN - 05/03/2019 3:19 PM CDT Problem: Health Behavior: Goal: Understanding of discharge needs will improve Outcome: Progressing Problem: Lack of Knowledge: Goal: Ability to state ways to decrease the risk of falls will improve Outcome: Progressing Problem: Safety: Goal: Will remain free from falls Outcome: Progressing Goal: Will remain free from injury from falls Outcome: Progressing Goal: Will remain free from falls and injury in home environment Outcome: Progressing Problem: Skin Integrity: Goal: Signs of wound healing will improve Outcome: Progressing Goal: Skin integrity will improve Outcome: Progressing Goal: Will show no evidence of further tissue damage Outcome: Progressing Problem: Cardiac: Goal: Knowledge of VTE will improve by discharge Outcome: Progressing Problem: Activity: Goal: Mobility will improve Outcome: Progressing Problem: Lack of Knowledge: Goal: Understanding of ways to prevent future skin breakdown will improve Outcome: Progressing Goal: Ability to identify appropriate dietary choices will improve Outcome: Progressing Problem: Nutritional: Goal: Dietary intake will improve Outcome: Progressing Goal: Ability to maintain a balanced intake and output will improve Outcome: Progressing Problem: Skin Integrity: Goal: Risk for impaired skin integrity will decrease Outcome: Progressing Goal: Ability to demonstrate warm and dry skin will improve Outcome: Progressing Goal: Circulation will improve to fullest extent possible Outcome: Progressing Goals: Clinical Goals for the Shift: Monitor VS/I&O, manage pain/nausea, up ad mayela, chair. Summary: Stable VS, adequate I&O, no reports pain/nausea, still reports epigastric fullness, upad mayela. * Plan of Care - Priscilla Keating RN - 05/03/2019 9:50 AM CDT Chart review done. Per charge nurse, Pt to have a wound vac placed today. CM will need to get approval for home vac. Will place paperwork in chart. Do not anticipate discharge home today. Weekend CM will continue to follow. Please call [phone] for assist with discharge needs today. * Plan of Care - Ashley Ayers RN - 05/03/2019 2:05 AM CDT Goals: Clinical Goals for the Shift: monitor I/O, VSS, manage nausea Summary: Pt has no pain. Pt has states she does not have nausea just a weird feeling in her stomach. Pt had a small amount of emesis, brown and undigested food at approx. 0115. Pt has voided twice this shift. Pt has rested well until about 0100. Will continue to monitor. Problem: Health Behavior: Goal: Understanding of discharge needs will improve Outcome: Progressing Problem: Lack of Knowledge: Goal: Ability to state ways to decrease the risk of falls will improve Outcome: Progressing Problem: Safety: Goal: Will remain free from falls Outcome: Progressing Goal: Will remain free from injury from falls Outcome: Progressing Goal: Will remain free from falls and injury in home environment Outcome: Progressing Problem: Skin Integrity: Goal: Signs of wound healing will improve Outcome: Progressing Goal: Skin integrity will improve Outcome: Progressing Goal: Will show no evidence of further tissue damage Outcome: Progressing Problem: Cardiac: Goal: Knowledge of VTE will improve by discharge Outcome: Progressing Problem: Activity: Goal: Mobility will improve Outcome: Progressing Problem: Lack of Knowledge: Goal: Understanding of ways to prevent future skin breakdown will improve Outcome: Progressing Goal: Ability to identify appropriate dietary choices will improve Outcome: Progressing Problem: Nutritional: Goal: Dietary intake will improve Outcome: Progressing Goal: Ability to maintain a balanced intake and output will improve Outcome: Progressing Problem: Skin Integrity: Goal: Risk for impaired skin integrity will decrease Outcome: Progressing Goal: Ability to demonstrate warm and dry skin will improve Outcome: Progressing Goal: Circulation will improve to fullest extent possible Outcome: Progressing * Plan of [place] - Jef Joshi RN - 05/02/2019 4:24 PM CDT Problem: Health Behavior: Goal: Understanding of discharge needs will improve Outcome: Progressing Problem: Lack of Knowledge: Goal: Ability to state ways to decrease the risk of falls will improve Outcome: Progressing Problem: Safety: Goal: Will remain free from falls Outcome: Progressing Goal: Will remain free from injury from falls Outcome: Progressing Goal: Will remain free from falls and injury in home environment Outcome: Progressing Problem: Skin Integrity: Goal: Signs of wound healing will improve Outcome: Progressing Goal: Skin integrity will improve Outcome: Progressing Goal: Will show no evidence of further tissue damage Outcome: Progressing Problem: Cardiac: Goal: Knowledge of VTE will improve by discharge Outcome: Progressing Problem: Activity: Goal: Mobility will improve Outcome: Progressing Problem: Lack of Knowledge: Goal: Understanding of ways to prevent future skin breakdown will improve Outcome: Progressing Goal: Ability to identify appropriate dietary choices will improve Outcome: Progressing Problem: Nutritional: Goal: Dietary intake will improve Outcome: Progressing Goal: Ability to maintain a balanced intake and output will improve Outcome: Progressing Problem: Skin Integrity: Goal: Risk for impaired skin integrity will decrease Outcome: Progressing Goal: Ability to demonstrate warm and dry skin will improve Outcome: Progressing Goal: Circulation will improve to fullest extent possible Outcome: Progressing Goals: Clinical Goals for the Shift: Monitor VS/I&O, manage pain/nausea, up ad mayela, chair. Summary: Stable VS, low urine output, no reports of pain, intermittent nausea, walking in hallways. * Plan of Care - Maggy Alvarez RN - 05/02/2019 11:05 AM CDT Weekend Follow up Note: Per discussion with lead charge nurse, No plans for dc today. Please contact this cm if plan changes for dc today. Maggy Alvarez Rn, * Plan of Care - Joy Perkins RN - 05/02/2019 3:13 AM CDT Problem: Health Behavior: Goal: Understanding of discharge needs will improve Outcome: Progressing Problem: Lack of Knowledge: Goal: Ability to state ways to decrease the risk of falls will improve Outcome: Progressing Problem: Safety: Goal: Will remain free from falls Outcome: Progressing Goal: Will remain free from injury from falls Outcome: Progressing Goal: Will remain free from falls and injury in home environment Outcome: Progressing Problem: Skin Integrity: Goal: Signs of wound healing will improve Outcome: Progressing Goal: Skin integrity will improve Outcome: Progressing Goal: Will show no evidence of further tissue damage Outcome: Progressing Problem: Cardiac: Goal: Knowledge of VTE will improve by discharge Outcome: Progressing Problem: Activity: Goal: Mobility will improve Outcome: Progressing Problem: Lack of Knowledge: Goal: Understanding of ways to prevent future skin breakdown will improve Outcome: Progressing Goal: Ability to identify appropriate dietary choices will improve Outcome: Progressing Problem: Nutritional: Goal: Dietary intake will improve Outcome: Progressing Goal: Ability to maintain a balanced intake and output will improve Outcome: Progressing Problem: Skin Integrity: Goal: Risk for impaired skin integrity will decrease Outcome: Progressing Goal: Ability to demonstrate warm and dry skin will improve Outcome: Progressing Goal: Circulation will improve to fullest extent possible Outcome: Progressing Goals: VSS, monitor I&Os, pain management Summary: Patient's vitals are stable. Her I&Os were monitored throughout the shift. Her pain has been well controlled throughout the shift. She is up ad mayela. She is able to express needs. Will continue to monitor. * Provider Query - Jessica Salazar - 05/01/2019 2:54 PM CDT Images from the original note were not included. Clinical Indicators/Treatments: - Monitor BMP Please specify an appropriate diagnosis, if significant, that supports the lab findings and document in the medical record and on the form below. Indicate Present on Admission Status. _x__Hypocalcemia not Present on Admission ___Abnormal laboratory findings, inconclusive diagnosis ___Clinically insignificant abnormal laboratory findings ___Other, specify below ___Clinically unable to determine Provider Response: Hypocalcemia not Present on Admission Use of terms such as likely, suspected, possible, or probable (associated with a specific diagnosisthat is being evaluated, monitored, or treated as if it exists) are acceptable and can be coded in the inpatient setting when documented at the time of discharge. This documentation will become part of the patient???s medical record. Thank you, Bette Salazar RN, BSN, MS, CCDS Clinical Chalk Extruding Machine Operator [phone] * Provider Query - Jessica Salazar - 05/01/2019 2:38 PM CDT Clinical Indicators/Treatments: - Per H&P/CRS consult, concern for postop wound infection. Carlos removed with 500cc of copious pus expressed. - Per 04/28 wound/ostomy assessment: Wound Length (cm) 1.5 cm Wound Width (cm) 2 cm Wound Depth (cm) 3.5 Please provide further information regarding the depth of the postoperative wound and document in the medical record and on the form below. ___ Deep incisional surgical site (e.g. fascia, muscle) ___ Superficial incisional surgical site (e.g. stitch or subcutaneous) ___ Other specified ___ Clinically unable to determine Provider Response: Deep incisional surgical site - small fascial defect is suspected Use of terms such as likely, suspected, possible, or probable (associated with a specific diagnosisthat is being evaluated, monitored, or treated as if it exists) are acceptable and can be coded in the inpatient setting when documented at the time of discharge. This documentation will become part of the patient???s medical record. Thank you, Bette Salazar RN, BSN, MS, CCDS Clinical Chalk Extruding Machine Operator [phone] * Plan of Care - Priscilla Aguilar RN - 05/01/2019 2:25 PM CDT Report per DCAM:??Patient not medically stable to discharge today.Vascular access needed, dressing change twice a day. Impression: Patient is a 68 yo F with metastatic ileal neuroendocrine tumor, presenting with a large bowel obstruction??s/p Ex Lap + End colostomy Referrals:??Patient remains open with [facility], CM spoke with Yenny regarding ADD Support:??spouse, Alejo [phone] Transportation: ?? ADD:??05/02/19 ?? Case Management will follow for planning and referrals as needed * Plan of Care - Ingrid Vargas RN - 05/01/2019 6:40 AM CDT Problem: Health Behavior: Goal: Understanding of discharge needs will improve Outcome: Progressing Problem: Lack of Knowledge: Goal: Ability to state ways to decrease the risk of falls will improve Outcome: Progressing Problem: Safety: Goal: Will remain free from falls Outcome: Progressing Goal: Will remain free from injury from falls Outcome: Progressing Goal: Will remain free from falls and injury in home environment Outcome: Progressing Problem: Skin Integrity: Goal: Signs of wound healing will improve Outcome: Progressing Goal: Skin integrity will improve Outcome: Progressing Goal: Will show no evidence of further tissue damage Outcome: Progressing Problem: Cardiac: Goal: Knowledge of VTE will improve by discharge Outcome: Progressing Problem: Activity: Goal: Mobility will improve Outcome: Progressing Problem: Lack of Knowledge: Goal: Understanding of ways to prevent future skin breakdown will improve Outcome: Progressing Goal: Ability to identify appropriate dietary choices will improve Outcome: Progressing Problem: Nutritional: Goal: Dietary intake will improve Outcome: Progressing Goal: Ability to maintain a balanced intake and output will improve Outcome: Progressing Problem: Skin Integrity: Goal: Risk for impaired skin integrity will decrease Outcome: Progressing Goal: Ability to demonstrate warm and dry skin will improve Outcome: Progressing Goal: Circulation will improve to fullest extent possible Outcome: Progressing Goals: Clinical Goals for the Shift: monitor I and O, control pain, monitor dressing Summary: Pt voiding adequately, chani in color, MD Em notified at 0137, will watch, pt C/O nausea and emesis (pt stated it was a few mouthfuls at 0640), [employer] notified, verbal order for oral Zofranplaced, pt rested quietly during shift, pt ambulated in room, vitals stable. Pt's abd wound had moderate amount of yellow and light red drainage, reddened tati skin outside ofdrawn margin. Area cleansed and dry dressing placed. Attempted to to obtain lab samples from pt (x4 from floor nurses), Pt also C/O pain at IV site, reddened, removed IV, notified and encouraged resource nurse be contacted [phone]: Contacted resource nurse, who attempted to obtain lab samples and new IV insertion with no success. 0601: Notified MD of unsuccessful IV insertion, but lab sample obtained, MD stated she would talk to day team about possible need to consult IV therapy. Will continue to monitor. -Ingrid Vargas, RN * Plan of Care - Barb Casper RN - 04/30/2019 11:05 AM CDT Problem: Health Behavior: Goal: Understanding of discharge needs will improve Outcome: Progressing Problem: Lack of Knowledge: Goal: Ability to state ways to decrease the risk of falls will improve Outcome: Progressing Problem: Safety: Goal: Will remain free from falls Outcome: Progressing Goal: Will remain free from injury from falls Outcome: Progressing Goal: Will remain free from falls and injury in home environment Outcome: Progressing Problem: Skin Integrity: Goal: Signs of wound healing will improve Outcome: Progressing Goal: Skin integrity will improve Outcome: Progressing Goal: Will show no evidence of further tissue damage Outcome: Progressing Problem: Cardiac: Goal: Knowledge of VTE will improve by discharge Outcome: Progressing Goals: Clinical Goals for the Shift: colostomy and wound care, monitor wound drainage, oral antibiotics, out of bed activity, electrolyte replacement, tolerate diet, discharge planning Summary: monitor wound infection, antibiotics, replete electrolytes, ambulate, ostomy care, drink red juice to see if comes through wound, pain management, discharge planning. * Plan of Care - Ingrid Vargas RN - 04/30/2019 3:17 AM CDT Problem: Health Behavior: Goal: Understanding of discharge needs will improve Outcome: Progressing Problem: Lack of Knowledge: Goal: Ability to state ways to decrease the risk of falls will improve Outcome: Progressing Problem: Safety: Goal: Will remain free from falls Outcome: Progressing Goal: Will remain free from injury from falls Outcome: Progressing Goal: Will remain free from falls and injury in home environment Outcome: Progressing Goals: Clinical Goals for the Shift: monitor I and O, control pain. ambulate, monitor wound Summary: Pt voiding adequately, pt denied pain, administered prescribed interventions, pt rested quietly during shift, pt ambulated in room, pt tolerating diet and medications, vitals stable. Pt's dressing was intact on abd (small brown shadow drainage), had small amount of light red drainage leaking from around dressing, reinforced with 4x4 and abd pad. Foam dressing changed 04/29 per pt. Will continue to monitor. -Ingrid Vargas RN * Plan of Care - Elaine Joseph RN - 04/29/2019 4:45 PM CDT Problem: Health Behavior: Goal: Understanding of discharge needs will improve Outcome: Progressing Problem: Lack of Knowledge: Goal: Ability to state ways to decrease the risk of falls will improve Outcome: Progressing Problem: Safety: Goal: Will remain free from falls Outcome: Progressing Goal: Will remain free from injury from falls Outcome: Progressing Goal: Will remain free from falls and injury in home environment Outcome: Progressing Goals: Clinical Goals for the Shift: VSS, pain control, dressing change, ambulation Summary: Patient understands to call for assistance and pain medication as needed. VS stable. Tolerating dressing changes. Will continue to monitor for any clinical changes this shift. * Plan of Care - Priscilla Aguilar RN - 04/29/2019 11:56 AM CDT Report per DCAM: Patient not medically stable to discharge today.Wound nurse to consult for infection, regular diet, PT/OT. Impression: Patient is a 68 yo F with metastatic ileal neuroendocrine tumor, presenting with a large bowel obstruction??s/p Ex Lap + End colostomy Referrals: Patient remains open with [facility], CM spoke with Yenny regarding ADD Support: spouse, Alejo [phone] Transportation: ADD: 04/30/19 Case Management will follow for planning and referrals as needed * Plan of Care - Callie Bailey RN - 04/29/2019 4:14 AM CDT Problem: Health Behavior: Goal: Understanding of discharge needs will improve Outcome: Progressing Problem: Lack of Knowledge: Goal: Ability to state ways to decrease the risk of falls will improve Outcome: Progressing Problem: Safety: Goal: Will remain free from falls Outcome: Progressing Goal: Will remain free from injury from falls Outcome: Progressing Goal: Will remain free from falls and injury in home environment Outcome: Progressing Goals: Clinical Goals for the Shift: Fall precautions; wound care; monitor vitals and I/O Summary: Patient has been resting in bed comfortably. No complaint of pain. Voiding per bedside commode with assist of 1 (standby). Dressing orders changed and will be done in 0500 hour. IVF infusing. IV site required changing. Vitals stable. Labs pend. Colostomy producing loose (sometimes watery) stool. Plan: Dressing changes as ordered; continue IV abx. Vanc trough prior to next dose. * Provider Query - Jessica Salazar - 04/28/2019 3:46 PM CDT Images from the original note were not included. Clinical Indicators/Treatments: - KCl 40 mEq - Monitor BMP Please specify an appropriate diagnosis, if significant, that supports the lab findings and document in the medical record and on the form below. Indicate Present on Admission Status. _x__Hypokalemia present on admission ___Abnormal laboratory findings, inconclusive diagnosis ___Clinically insignificant abnormal laboratory findings ___Other, specify below ___Clinically unable to determine Provider Response: Use of terms such as likely, suspected, possible, or probable (associated with a specific diagnosisthat is being evaluated, monitored, or treated as if it exists) are acceptable and can be coded in the inpatient setting when documented at the time of discharge. This documentation will become part of the patient???s medical record. Thank you, Bette Salazar RN, BSN, MS, CCDS Clinical Chalk Extruding Machine Operator [phone] * Plan of Care - Elaine Joseph RN - 04/28/2019 12:40 PM CDT Problem: Health Behavior: Goal: Understanding of discharge needs will improve Outcome: Progressing Problem: Lack of Knowledge: Goal: Ability to state ways to decrease the risk of falls will improve Outcome: Progressing Problem: Safety: Goal: Will remain free from falls Outcome: Progressing Goal: Will remain free from injury from falls Outcome: Progressing Goal: Will remain free from falls and injury in home environment Outcome: Progressing Goals: Clinical Goals for the Shift: pain control, VSS, IV antibiotics, ambulation Summary: Patient admitted for IV antibiotics and is tolerating well. Patient is up with 1 assist and understands to call for assistance and pain medication as needed. VS stable. Will continue to monitor for any clinical changes this shift. * Plan of Care - Yady Rascon PT - 04/28/2019 11:59 AM CDT PT evaluation completed. Pt presents with decreased strength, decreased balance, impaired functional mobility and impaired gait 2/2 metastatic ileal neuroendocrine tumor, presenting with a recent large bowel obstruction s/p Ex Lap + End colostomy. Requires PT to improve functional mobility and activity tolerance. Today's tx included pt education re: safe mobility, abdominal protection strategies, functional mobility, andactivity progression. Problem: Mobility Goal: LTG - Patient will ambulate community distance Description Indep, no AD Outcome: Progressing Goal: STG - Patient will ambulate Description 200' - AD, Mod I Outcome: Progressing Goal: STG - Patient will ambulate up and down a curb/step Description Mod I Outcome: Progressing * Plan of Care - Soniya Aguirre RN - 04/28/2019 5:25 AM CDT Problem: Health Behavior: Goal: Understanding of discharge needs will improve Outcome: Progressing Problem: Lack of Knowledge: Goal: Ability to state ways to decrease the risk of falls will improve Outcome: Progressing Problem: Safety: Goal: Will remain free from falls Outcome: Progressing Goal: Will remain free from injury from falls Outcome: Progressing Goal: Will remain free from falls and injury in home environment Outcome: Progressing Goals: Clinical Goals for the Shift: pain control, monitor I/O and VS, labs Summary: Patient did not complain of pain this shift. She is voiding without difficulty but did nothave measurable output from her ostomy this morning. Her vital signs were stable. Labs drawing thismorning and waiting for results. She rested comfortably after admission. * ED Re-evaluation Note - Tammy Irizarry MD - 04/27/2019 10:57 PM CDT ED Re-evaluation 23:00 I, Tammy Irizarry, am taking signout on [place] from [facility] MD Petra Patient is a 68 yo F with metastatic ileal neuroendocrine tumor, presenting with a recent large bowel obstruction??s/p Ex Lap + End colostomy. Endocrine consulted for hypocalcemia. Patient had a colostomy creation two weeks ago here. Redness and drainage present over the past couple of days over staple site. Colostomy is functioning fine. Denies fevers/chills. Was sent here by MD Reeves ?? Just d/c Saturday. Incision site redder and draining. PW superficial cellulitis. Still passing stool through colostomy. Has leukocytosis and initially hypotensive. K low so KCl ordered. Got CT abdomen, blood cultures, fluids (2L). Vanc/Cefe have been ordered. Surgery consulted. Pending: F/u Mag to determine supplementation. Likely admit to surgery, need to follow-up with them. Ensure lactate trending down. ED Course as of Apr 28 146 Time: 04/27 2119 Comment: Patient is a 68 yo female s/p colostomy by Dr Reeves approximately 2 weeks ago. She presents w a one day history of lower abdominal pain, redness, and erythema associated with the lower end of incision. No known fevers, chills, or nausea. Plan IV placement, labs, IVFs, and CT scan. Exam demonstrates a bilateral lower abdominal cellulitis associated with the incision site/carlos. Activelylooking for room and will consult Surgery. By: Felicity Sanders MD Time: 04/28 30 Comment: Surgery note stating Vanc/Cefe/Flagyl and admit to Colorectal Surgery for potential IR versus OR drainage. Will call to confirm, and plan to admit. By: Tammy Irizarry MD Time: 04/28 119 Comment: Surgery lanced the fluid collection at bedside and copious fluid was extracted. Will admit. Lactate down to 1.7 after fluids. By: MD Tammy Masterson MD Resident 04/28/19 0146 documented in this encounter Plan of Treatment Not on file documented as of this encounter Procedures Procedure Name Priority Date/Time Associated Diagnosis Comments XR ABDOMEN AP 1 VIEW Timed 05/03/2019 9:44 AM CDT DIFFERENTIAL AUTO Timed 05/03/2019 1:2 5 AM CDT CBC WITH AUTO DIFFERENTIAL Timed 05/03/2019 1:25 AM CDT PHOSPHORUS Timed 05/03/2019 1:25 AM CDT MAGNESIUM Timed 05/03/2019 1:25 AM CDT BASIC METABOLIC PANEL Timed 05/03/2019 1:25 AM CDT BASIC METABOLIC PANEL Timed 05/01/2019 3:47 AM CDT DIFFERENTIAL AUTO Timed 04/30/2019 1:1 5 AM CDT CBC WITH AUTO DIFFERENTIAL Timed 04/30/2019 1:15 AM CDT BASIC METABOLIC PANEL Timed 04/30/2019 1:15 AM CDT CBC WITHOUT DIFFERENTIAL Timed 04/29/2019 3:13 AM CDT BASIC METABOLIC PANEL Timed 04/29/2019 3:13 AM CDT URINALYSIS AND REFLEX TO MICROSCOPIC AND CULTURE Routine 04/28/2019 7:20 AM CDT URINALYSIS, MICROSCOPIC ONLY Routine 04/28/2019 7:20 AM CDT URINE CULTURE Routine 04/28/2019 7:20 AM CDT CBC WITHOUT DIFFERENTIAL Routine 04/28/2019 4:37 AM CDT PHOSPHORUS Routine 04/28/2019 4:37 AM CDT MAGNESIUM Routine 04/28/2019 4:37 AM CDT BASIC METABOLIC PANEL Routine 04/28/2019 4:37 AM CDT POCT LACTATE - DEVICE Routine 04/28/2019 12:04 AM CDT XR CHEST PA LATERAL 2 VIEWS ED 04/27/2019 10:[address] ABDOMEN PELVIS W CONTRAST ED 04/27/2019 10:22 PM CDT DIFFERENTIAL AUTO STAT 04/27/2019 9:1 0 PM CDT CBC WITH AUTO DIFFERENTIAL STAT 04/27/2019 9:10 PM CDT BLOOD CULTURE Routine 04/27/2019 9:10 PM CDT BLOOD CULTURE Routine 04/27/2019 9:10 PM CDT MAGNESIUM STAT 04/27/2019 9:10 PM CDT COMPREHENSIVE METABOLIC PANEL STAT 04/27/2019 9:10 PM CDT POCT LACTATE - DEVICE Routine 04/27/2019 9:00 PM CDT documented in this encounter Results * XR Abdomen Ap 1 Vw (05/03/2019 9:44 AM CDT) Anatomical Region Laterality Modality Body, Abdomen N/A Computed Radiogr aphy 05/03/2019 10:2 3 AM CDT Impressions 05/03/2019 10:23 AM CDT Portable supine radiograph of the abdomen demonstrates paucity of bowel gas throughout the abdomen and pelvis. ??No dilated air-filled loops of bowel noted. ??Ostomy in the left lower quadrant of the abdomen is present. ??Skin carlos along the anterior lower abdominal wall there stable. ??The gastric tube has been removed in the interval. ??Cholecystectomy clips noted. ??Patchy opacities in lung bases are compatible with atelectasis. Electronically signed by: Tiara Caldera M.D. Narrative 05/03/2019 10:23 AM CDT EXAMINATION: Abdomen, one view. HISTORY: Nausea, emesis, abdominal pain, and low ostomy output COMPARISON: Abdomen radiograph 04/15/2019 at 4:12 AM Procedure Note Tiara Mcginnis MD - 05/03/2019 EXAMINATION: Abdomen, one view. HISTORY: Nausea, emesis, abdominal pain, and low ostomy output COMPARISON: Abdomen radiograph 04/15/2019 at 4:12 AM IMPRESSION: Portable supine radiograph of the abdomen demonstrates paucity of bowel gas throughout the abdomen and pelvis. No dilated air-filled loops of bowel noted. Ostomy in the left lower quadrant of the abdomen is present. Skin carlos along the anterior lower abdominal wall there stable. The gastric tube has been removed in the interval. Cholecystectomy clips noted. Patchy opacities in lung bases are compatible with atelectasis. Electronically signed by: Tiara Caldera M.D. us Greyson Reeves MD IMG XR PROCEDURES Final Resu lt * (ABNORMAL) Differential, auto (05/03/2019 1:25 AM CDT) Neutrophil abs 5.6 1.7 - 6.5 K/cumm [facility] Imm gran abs 0.4(H) 0.0 - 0.1 K/cumm [facility] Lymphocyte abs 1.2 0.8 - 3.3 K/cumm [facility] Monocyte abs 0.8 0.2 - 0.8 K/cumm [facility] Eosinophil abs 0.3 0.0 - 0.5 K/cumm [facility] Basophil abs 0.1 0.0 - 0.1 K/cumm [facility] Neutrophil pct 65.7 % [facility] Comment: Interpretive Data Percent cell count reference ranges are not reported, since discordance with absolute values may lead to misinterpretation of CBC data. Current Interpretive Data was last revised on 2017. Imm gran pct 4.7 % [facility] Comment: Interpretive Data Percent cell count reference ranges are not reported, since discordance with absolute values may lead to misinterpretation of CBC data. Current Interpretive Data was last revised on 2017. Lymphocyte pct 14.5 % [facility] Comment: Interpretive Data Percent cell count reference ranges are not reported, since discordance with absolute values may lead to misinterpretation of CBC data. Current Interpretive Data was last revised on 2017. Monocyte pct 9.8 % [facility] Comment: Interpretive Data Percent cell count reference ranges are not reported, since discordance with absolute values may lead to misinterpretation of CBC data. Current Interpretive Data was last revised on 2017. Eosinophil pct 4.0 % [facility] Comment: Interpretive Data Percent cell count reference ranges are not reported, since discordance with absolute values may lead to misinterpretation of CBC data. Current Interpretive Data was last revised on 2017. Basophil pct 1.3 % [facility] Comment: Interpretive Data Percent cell count reference ranges are not reported, since discordance with absolute values may lead to misinterpretation of CBC data. Current Interpretive Data was last revised on 2017. Blood specimen (specimen) 05/03/2019 1:25 AM CDT 05/03/2019 1:34 AM CDT us Greyson Reeves MD LAB BLOOD ORDERABLES Final R esult [facility] [place] [address] * (ABNORMAL) Phosphorus (05/03/2019 1:25 AM CDT) [facility] Phosphorus, pl 2.0(L) 2.3 - 4.5 mg/dL [facility] Blood specimen (specimen) 05/03/2019 1:25 AM CDT 05/03/2019 1:34 AM CDT Greyson Reeves MD LAB BLOOD ORDERABLES Final R esult Performing Organization Address [facility] [address]/[facility] Co de Phone Number [facility] [place] [address] * Magnesium (05/03/2019 1:25 AM CDT) [facility] Magnesium 1.6 1.4 - 2.5 mg/dL [facility] Blood specimen (specimen) 05/03/2019 1:25 AM CDT 05/03/2019 1:34 AM CDT Greyson Reeves MD LAB BLOOD ORDERABLES Final R esult Performing Organization Address [facility] [address]/[facility] [place] [address] * (ABNORMAL) Basic metabolic panel (05/03/2019 1:25 AM CDT) [facility] Sodium 139 135 - 145 mmol/L [facility] Potassium, pl 3.8 3.3 - 4.9 mmol/L [facility] Chloride 107 97 - 110 mmol/L [facility] CO2 23 22 - 32 mmol/L [facility] Anion gap 9 2 - 15 mmol/L [facility] BUN 6(L) 8 - 25 mg/dL [facility] Creatinine 0.60 0.60 - 1.10 mg/dL [facility] Glucose 133 70 - 199 mg/dL [facility] [...] interpretive data was last revised 2017. Calcium 8.5 8.5 - 10.3 mg/dL [facility] Blood specimen (specimen) 05/03/2019 1:25 AM CDT 05/03/2019 1:34 AM CDT us Greyson Reeves MD LAB BLOOD ORDERABLES Final R esult [facility] [place] [address] * (ABNORMAL) CBC with auto differential (05/03/2019 1:25 AM CDT) [facility] WBC 8.6 3.8 - 9.9 K/cumm [facility] Hgb 11.3(L) 11.9 - 15.5 g/dL [facility] Hct 35.5(L) 35.6 - 45.5 % [facility] Plt 432(H) 150 - 400 K/cumm [facility] MPV 10.4 9.1 - 12.3 fL [facility] RBC 3.87(L) 3.90 - 5.20 M/cumm [facility] MCV 91.7 81.3 - 96.4 fL [facility] MCH 29.2 27.1 - 33.3 pg [facility] MCHC 31.8(L) 32.3 - 35.7 g/dL [facility] RDW CV 15.1(H) 11.1 - 14.9 % [facility] RDW SD 48.6(H) 35.7 - 48.1 fL [facility] NRBC abs 0.00 0.00 - 0.01 K/cumm [facility] Blood specimen (specimen) 05/03/2019 1:25 AM CDT 05/03/2019 1:34 AM CDT us Greyson Reeves MD LAB BLOOD ORDERABLES Final R esult [facility] [place] [address] * (ABNORMAL) Basic metabolic panel (05/01/2019 3:47 AM CDT) Pathologist [facility] Sodium 137 135 - 145 mmol/L [facility] Potassium, pl 4.2 3.3 - 4.9 mmol/L [facility] Comment:Hemolyzed; (+++); po tassium value may be falsely elevated by as much as 0.6 - 1.0 mmol/L. Suggest redraw and reanalysis. Chloride 105 97 - 110 mmol/L [facility] CO2 25 22 - 32 mmol/L [facility] Anion gap 7 2 - 15 mmol/L [facility] BUN 7(L) 8 - 25 mg/dL [facility] Creatinine 0.67 0.60 - 1.10 mg/dL [facility] Glucose 116 70 - 199 mg/dL [facility] [...] interpretive data was last revised 2017. Calcium 7.8(L) 8.5 - 10.3 mg/dL [facility] Blood specimen (specimen) 05/01/2019 3:47 AM CDT 05/01/2019 4:21 AM CDT us Ryley Hall NP LAB BLOOD ORDERABLES Final Res ult [facility] [place] [address] * (ABNORMAL) Differential, auto (04/30/2019 1:15 AM CDT) Neutrophil abs 3.3 1.7 - 6.5 K/cumm [facility] Imm gran abs 0.2(H) 0.0 - 0.1 K/cumm [facility] Lymphocyte abs 0.4(L) 0.8 - 3.3 K/cumm [facility] Monocyte abs 0.5 0.2 - 0.8 K/cumm [facility] Eosinophil abs 0.2 0.0 - 0.5 K/cumm [facility] Basophil abs 0.0 0.0 - 0.1 K/cumm [facility] Neutrophil pct 72.0 % [facility] Comment: Interpretive Data Percent cell count reference ranges are not reported, since discordance with absolute values may lead to misinterpretation of CBC data. Current Interpretive Data was last revised on 2017. Imm gran pct 3.3 % [facility] Comment: Interpretive Data Percent cell count reference ranges are not reported, since discordance with absolute values may lead to misinterpretation of CBC data. Current Interpretive Data was last revised on 2017. Lymphocyte pct 8.6 % [facility] Comment: Interpretive Data Percent cell count reference ranges are not reported, since discordance with absolute values may lead to misinterpretation of CBC data. Current Interpretive Data was last revised on 2017. Monocyte pct 10.4 % [facility] Comment: Interpretive Data Percent cell count reference ranges are not reported, since discordance with absolute values may lead to misinterpretation of CBC data. Current Interpretive Data was last revised on 2017. Eosinophil pct 4.8 % [facility] Comment: Interpretive Data Percent cell count reference ranges are not reported, since discordance with absolute values may lead to misinterpretation of CBC data. Current Interpretive Data was last revised on 2017. Basophil pct 0.9 % [facility] Comment: Interpretive Data Percent cell count reference ranges are not reported, since discordance with absolute values may lead to misinterpretation of CBC data. Current Interpretive Data was last revised on 2017. Blood specimen (specimen) 04/30/2019 1:15 AM CDT 04/30/2019 2:06 AM CDT Ryley Hall [employer] LAB BLOOD ORDERABLES Final Res ult Performing Organization Address [facility] [address]/[facility] Co de Phone Number [facility] [address] [place] [address] * (ABNORMAL) Basic metabolic panel (04/30/2019 1:15 AM CDT) Pathologist [facility] Sodium 136 135 - 145 mmol/L [facility] Potassium, pl 2.9(L) 3.3 - 4.9 mmol/L [facility] Chloride 102 97 - 110 mmol/L [facility] CO2 24 22 - 32 mmol/L [facility] Anion gap 10 2 - 15 mmol/L [facility] BUN 8 8 - 25 mg/dL [facility] Creatinine 0.70 0.60 - 1.10 mg/dL [facility] Glucose 118 70 - 199 mg/dL [facility] [...] interpretive data was last revised 2017. Calcium 7.9(L) 8.5 - 10.3 mg/dL [facility] Blood specimen (specimen) 04/30/2019 1:15 AM CDT 04/30/2019 2:04 AM CDT Ryley Hall [employer] LAB BLOOD ORDERABLES Final Res ult Performing Organization Address [facility]/State/ZIP Co de Phone Number [facility]ON BL[facility] [address] [place] [address] * (ABNORMAL) CBC with auto differential (04/30/2019 1:15 AM CDT) [facility] WBC 4.5 3.8 - 9.9 K/cumm [facility] Hgb 8.9(L) 11.9 - 15.5 g/dL [facility] Hct 27.7(L) 35.6 - 45.5 % [facility] Plt 249 150 - 400 K/cumm [facility] MPV 10.7 9.1 - 12.3 fL [facility] RBC 3.08(L) 3.90 - 5.20 M/cumm [facility] MCV 89.9 81.3 - 96.4 fL [facility] MCH 28.9 27.1 - 33.3 pg [facility] MCHC 32.1(L) 32.3 - 35.7 g/dL [facility] RDW CV 14.4 11.1 - 14.9 % [facility] RDW SD 47.4 35.7 - 48.1 fL [facility] NRBC abs 0.00 0.00 - 0.01 K/cumm [facility] Blood specimen (specimen) 04/30/2019 1:15 AM CDT 04/30/2019 2:06 AM CDT Ryley Hall [employer] LAB BLOOD ORDERABLES Final Res ult [facility] [address] [place] [address] * (ABNORMAL) Basic metabolic panel (04/29/2019 3:13 AM CDT) [facility] Sodium 136 135 - 145 mmol/L [facility] Potassium, pl 3.1(L) 3.3 - 4.9 mmol/L [facility] Chloride 104 97 - 110 mmol/L [facility] CO2 25 22 - 32 mmol/L [facility] Anion gap 7 2 - 15 mmol/L [facility] BUN 12 8 - 25 mg/dL [facility] Creatinine 0.85 0.60 - 1.10 mg/dL [facility] Glucose 130 70 - 199 mg/dL [facility] [...] interpretive data was last revised 2017. Calcium 7.4(L) 8.5 - 10.3 mg/dL [facility] Blood specimen (specimen) 04/29/2019 3:13 AM CDT 04/29/2019 4:05 AM CDT us Greyson Reeves MD LAB BLOOD ORDERABLES Final R esult [facility] [address] [place] [address] * (ABNORMAL) CBC without differential (04/29/2019 3:13 AM CDT) Pathologist [facility] WBC 6.0 3.8 - 9.9 K/cumm [facility] Hgb 8.6(L) 11.9 - 15.5 g/dL [facility] Hct 26.0(L) 35.6 - 45.5 % [facility] Plt 220 150 - 400 K/cumm [facility] MPV 10.4 9.1 - 12.3 fL [facility] RBC 2.87(L) 3.90 - 5.20 M/cumm [facility] MCV 90.6 81.3 - 96.4 fL [facility] MCH 30.0 27.1 - 33.3 pg [facility] MCHC 33.1 32.3 - 35.7 g/dL [facility] RDW CV 14.4 11.1 - 14.9 % [facility] RDW SD 47.7 35.7 - 48.1 fL [facility] NRBC abs 0.00 0.00 - 0.01 K/cumm [facility] Blood specimen (specimen) 04/29/2019 3:13 AM CDT 04/29/2019 4:04 AM CDT Greyson Reeves MD LAB BLOOD ORDERABLES Final R esult Performing Organization Address [facility] [address]/ZIP Co de Phone Number [facility] [address] [place] [address] * Urine culture Urine (04/28/2019 7:20 AM CDT) Report Final Report: No growth [facility] Urine 04/28/2019 7:20 AM CDT 04/28/2019 8:58 AM CDT Narrative [facility] - 04/29/2019 11:35 AM CDT Urine culture reflexed based upon urinalysis results. Testing performed by [facility] ([phone]) Petros Menon MD LAB MICROBIOLOGY - NERAL ORDERABLES Final Result Performing Organization Address [facility] [address]/[facility] Co de Phone Number [facility] [address] [place] [address] * (ABNORMAL) Urinalysis, microscopic only (04/28/2019 7:20 AM CDT) WBC, ur 11-20(A) 0 - 5 /HPF [facility] RBC, ur 6-10(A) 0 - 2 /HPF [facility] Epithelial cells, squamous, ur 11-20(A) 0 - 5 /HPF [facility] Comment:Suggestive of contam ination. Consider recollection by clean catch. Epithelial cells, transitional, ur 1-5 0 - 0 /HPF [facility] Urine 04/28/2019 7:20 AM CDT 04/28/2019 7:50 AM CDT Petros Menon MD LAB URINE ORDERABLES Final Result Performing Organization Address [facility] [address]/ZIP Co de Phone [place] [address] * (ABNORMAL) Urinalysis reflex to microscopic and culture Urine (04/28/2019 7:20 AM CDT) Color, ur Yellow Yellow [facility] Clarity, ur Cloudy(A) Clear [facility] Specific gravity, ur >1.042(H) 1.010 - 1.025 [facility] pH, urine 6 [facility] Protein, ur ql 2+(A) Negative [facility] Glucose, ur ql 1+(A) Negative [facility] Ketones, ur Negative Negative [facility] Bilirubin, ur Negative Negative [facility] Blood, ur 1+(A) Negative [facility] Urobilinogen, ur <2.0 <2.0 mg/dL [facility] Nitrite, ur Negative Negative [facility] Leukocyte esterase, ur 1+(A) Negative [facility] Urine 04/28/2019 7:20 AM CDT 04/28/2019 7:50 AM CDT Narrative [facility] - 04/28/2019 8:04 AM CDT ?? Urine pH is affected by diet, medications, systemic acid-base disturbances, and renal tubular function. ??pH may affect urinary stone formation. ??For example, urine pH below 6.0 may help reduce the tendency for calcium phosphate stones and pH greater than 6.0 may reduce the tendency for uric acid stone formation. Source: [employer]. Last revised 07-18-2017 us Petros Menon MD LAB MICROBIOLOGY - GE NERAL ORDERABLES Final Result Performing Organization Address [facility] [address]/ZIP Co de Phone Number [place] [address] * (ABNORMAL) CBC without differential (04/28/2019 4:37 AM CDT) WBC 8.0 3.8 - 9.9 K/cumm [facility] Hgb 9.3(L) 11.9 - 15.5 g/dL [facility] Hct 28.6(L) 35.6 - 45.5 % [facility] Plt 209 150 - 400 K/cumm [facility] MPV 10.6 9.1 - 12.3 fL [facility] RBC 3.15(L) 3.90 - 5.20 M/cumm [facility] MCV 90.8 81.3 - 96.4 fL [facility] MCH 29.5 27.1 - 33.3 pg [facility] MCHC 32.5 32.3 - 35.7 g/dL [facility] RDW CV 14.0 11.1 - 14.9 % [facility] RDW SD 46.5 35.7 - 48.1 fL [facility] NRBC abs 0.00 0.00 - 0.01 K/cumm [facility] Blood specimen (specimen) 04/28/2019 4:37 AM CDT 04/28/2019 5:03 AM CDT Narrative [facility] - 04/28/2019 5:13 AM CDT THE COLLECTION LOCATION IS [facility] Petros Menon MD LAB BLOOD ORDERABLES Final Result Performing Organization Address City/[facility] [address]/[facility] Co de Phone Number [address] [address] * (ABNORMAL) Phosphorus (04/28/2019 4:37 AM CDT) [facility] Phosphorus, pl 1.9(L) 2.3 - 4.5 mg/dL [facility] Blood specimen (specimen) 04/28/2019 4:37 AM CDT 04/28/2019 5:03 AM CDT Narrative [facility] - 04/28/2019 5:33 AM CDT THE COLLECTION LOCATION IS [facility] Petros Menon MD LAB BLOOD ORDERABLES Final Result Performing Organization Address [facility] [address]/ZIP Co de Phone Number [address] [address] * Magnesium (04/28/2019 4:37 AM CDT) [facility] Magnesium 1.9 1.4 - 2.5 mg/dL [facility] Blood specimen (specimen) 04/28/2019 4:37 AM CDT 04/28/2019 5:03 AM CDT Narrative [facility] - 04/28/2019 5:33 AM CDT THE [facility] COLLECTION LOCATION IS [facility] Petros Menon MD LAB BLOOD ORDERABLES Final Result [facility] [address] [place] [address] * (ABNORMAL) Basic metabolic panel (04/28/2019 4:37 AM CDT) [facility] Sodium 134(L) 135 - 145 mmol/L [facility] Potassium, pl 2.9(L) 3.3 - 4.9 mmol/L [facility] Chloride 101 97 - 110 mmol/L [facility] CO2 25 22 - 32 mmol/L [facility] Anion gap 8 2 - 15 mmol/L [facility] BUN 19 8 - 25 mg/dL [facility] Creatinine 1.21(H) 0.60 - 1.10 mg/dL [facility] Glucose 145 70 - 199 mg/dL [facility] [...] interpretive data was last revised 2017. Calcium 7.8(L) 8.5 - 10.3 mg/dL [facility] Blood specimen (specimen) 04/28/2019 4:37 AM CDT 04/28/2019 5:03 AM CDT Narrative [facility] - 04/28/2019 5:33 AM CDT THE [facility] COLLECTION LOCATION IS [facility] us Petros Menon MD LAB BLOOD ORDERABLES Final Result Performing Organization Address City/[facility] [address]/ZIP Co de Phone Number [address] [address] * POCT lactate (04/28/2019 12:04 AM CDT) Lactate POC i-STAT 1.7 0.7 - 2.2 mmol/L [facility] Blood specimen (specimen) 04/28/2019 12:04 AM CDT 04/28/2019 12:04 AM CDT us Greyson Reeves MD LAB POCT ORDERABLES - DEVICE Final Result Performing Organization Address [facility] [address]/[facility] de Phone Number [address] [address] * Chest X-Ray Pa and Lat (if patient is stable enough for transport to Radiology) (04/27/2019 10:33 PM CDT) Anatomical Region Laterality Modality Body, Chest N/A Computed Radiogr aphy 04/28/2019 12:1 7 AM CDT Impressions 04/28/2019 11:59 AM CDT 2 view examination of the chest is submitted with comparison to prior chest CT dated 03/23/2019. No pneumothorax, pleural effusion, or pulmonary edema. ??No focal consolidation. The mediastinal contours are within normal limits. ??There is moderate cardiomegaly. 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 Dictated by: Jaylen Ennis M.D. The radiology attending physician has personally reviewed this study, and had reviewed and/or edited this written report and agrees with it. Electronically signed by: Neo Ferguson M.D. Narrative 04/28/2019 11:59 AM CDT EXAMINATION: 2 view chest radiograph Procedure Note Neo Ferguson MD - 04/28/2019 EXAMINATION: 2 view chest radiograph IMPRESSION: 2 view examination of the chest is submitted with comparison to prior chest CT dated 03/23/2019. No pneumothorax, pleural effusion, or pulmonary edema. No focal consolidation. The mediastinal contours are within normal limits. There is moderate cardiomegaly. 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 Dictated by: Jaylen Ennis M.D. The radiology attending physician has personally reviewed this study, and had reviewed and/or edited this written report and agrees with it. Electronically signed by: Neo Ferguson M.D. us Petros Menon MD IMG XR PROCEDURES Fin al Result * CT Abdomen/Pelvis W Contrast (04/27/2019 10:22 PM CDT) Anatomical Region Laterality Modality Body N/A Computed Tomogra phy 04/28/2019 12:2 0 AM CDT Impressions 04/28/2019 11:45 AM CDT 1. ??Interval postsurgical changes of divided loop colostomy in the left lower quadrant. 2. ??Large area of phlegmonous change in the anterior abdominal soft tissues just deep the the skin carlos. Superiorly, there is an organized fluid collection. 3. ??Stable metastatic disease along the liver, undersurface of the diaphragm, mesentry and vaginal cuff. Dictated by: Minh Tom M.D. The radiology attending physician has personally reviewed this study, and had reviewed and/or edited this written report and agrees with it. Electronically signed by: Neo Ferguson M.D. 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 ??Patient recently had a large bowel obstruction status post exploratory laparotomy with creation of the divided loop colostomy on 04/13/2019. ??Patient reports increase in redness and drainage over the staple site over the past few days. TECHNIQUE: ??Transaxial computed tomographic images of the abdomen and pelvis were obtained with intravenous contrast according to the standard protocol after the uneventful administration of 100 mL Opti-Ray 350 intravenous contrast. COMPARISON: CT abdomen pelvis dated 04/11/2019 performed at outside facility. FINDINGS: There is mild bibasilar atelectasis. ??There is a 4 mm nodule adjacent to the right major fissure, unchanged when compared to the prior examination and possibly related to an intrafissural lymph node. ??The heart size is normal. ??There is no pericardial effusion. Again seen are multiple metastatic deposits along the surface of the liver and on the undersurface of the diaphragm, unchanged when compared to the prior examination. ??For example, adjacent to segment 6 of the liver, there is a 1.5 cm x 0.8 cm deposit (slice position -197), unchanged. ??There is no intrahepatic or extra hepatic biliary ductal dilatation. ??No focal intrahepatic lesions are identified. Cholecystectomy clips are noted. ??The spleen, pancreas, and bilateral adrenal glands are normal. The kidneys enhance symmetrically. ??There is no hydronephrosis. There is a 1.9 cm hypoattenuating lesion arising from the superior pole of the right kidney, unchanged consistent with a cyst. Additional too small to characterize hypoattenuating lesions are seen in the mid zone upper pole the right kidney, likely cysts. ??The urinary bladder is normal. ??The patient is status post hysterectomy. There are interval postsurgical changes of divided colostomy in the left lower quadrant along with prior postsurgical changes of an ileocolic anastomosis there are a few scattered colonic diverticula of the descending sigmoid colon without evidence of diverticulitis. There is no evidence of small bowel and large bowel obstruction. There is no free intraperitoneal air. ?? The abdominal aorta is normal in course and caliber. ??The celiac trunk, superior mesenteric artery, and portal vein are patent. ??There is no retroperitoneal, iliac, or inguinal lymphadenopathy. ??There is a 7 mm lymph node at the greater omentum (slice position -321.6) adjacent omental fat stranding. ??This is unchanged in size when compared to the prior examination. ??There is an unchanged 1.9 cm x 1.4 cm right vaginal fornix metastases, unchanged from the prior examination. In the anterior abdominal wall just deep to the skin staple, there is a large area of phlegmonous change measuring approximately 10.37 x 7.6 cm in maximum transaxial dimensions. ??This phlegmonous fluid courses superiorly to the upper abdomen, approximately 24.5 cm in craniocaudal length. ??Along the superior aspect of this phlegmonous soft tissue is organization of the fluid collection. The phlegmonous change close to close the anterior abdominal wall musculature without evidence of fistula to the bowel. There is mild stranding in the soft tissues of the omentum. No destructive osseous lesions are identified. ??There are degenerative changes in the lumbar spine. 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 Patient recently had a large bowel obstruction status post exploratory laparotomy with creation of the divided loop colostomy on 04/13/2019. Patient reports increase in redness and drainage over the staple site over the past few days. TECHNIQUE: Transaxial computed tomographic images of the abdomen and pelvis were obtained with intravenous contrast according to the standard protocol after the uneventful administration of 100 mL Opti-Ray 350 intravenous contrast. COMPARISON: CT abdomen pelvis dated 04/11/2019 performed at outside facility. FINDINGS: There is mild bibasilar atelectasis. There is a 4 mm nodule adjacent to the right major fissure, unchanged when compared to the prior examination and possibly related to an intrafissural lymph node. The heart size is normal. There is no pericardial effusion. Again seen are multiple metastatic deposits along the surface of the liver and on the undersurface of the diaphragm, unchanged when compared to the prior examination. For example, adjacent to segment 6 of the liver, there is a 1.5 cm x 0.8 cm deposit (slice position -197), unchanged. There is no intrahepatic or extra hepatic biliary ductal dilatation. No focal intrahepatic lesions are identified. Cholecystectomy clips are noted. The spleen, pancreas, and bilateral adrenal glands are normal. The kidneys enhance symmetrically. There is no hydronephrosis. There is a 1.9 cm hypoattenuating lesion arising from the superior pole of the right kidney, unchanged consistent with a cyst. Additional too small to characterize hypoattenuating lesions are seen in the mid zone upper pole the right kidney, likely cysts. The urinary bladder is normal. The patient is status post hysterectomy. There are interval postsurgical changes of divided colostomy in the left lower quadrant along with prior postsurgical changes of an ileocolic anastomosis there are a few scattered colonic diverticula of the descending sigmoid colon without evidence of diverticulitis. There is no evidence of small bowel and large bowel obstruction. There is no free intraperitoneal air. The abdominal aorta is normal in course and caliber. The celiac trunk, superior mesenteric artery, and portal vein are patent. There is no retroperitoneal, iliac, or inguinal lymphadenopathy. There is a 7 mm lymph node at the greater omentum (slice position -321.6) adjacent omental fat stranding. This is unchanged in size when compared to the prior examination. There is an unchanged 1.9 cm x 1.4 cm right vaginal fornix metastases, unchanged from the prior examination. In the anterior abdominal wall just deep to the skin staple, there is a large area of phlegmonous change measuring approximately 10.37 x 7.6 cm in maximum transaxial dimensions. This phlegmonous fluid courses superiorly to the upper abdomen, approximately 24.5 cm in craniocaudal length. Along the superior aspect of this phlegmonous soft tissue is organization of the fluid collection. The phlegmonous change close to close the anterior abdominal wall musculature without evidence of fistula to the bowel. There is mild stranding in the soft tissues of the omentum. No destructive osseous lesions are identified. There are degenerative changes in the lumbar spine. IMPRESSION: 1. Interval postsurgical changes of divided loop colostomy in the left lower quadrant. 2. Large area of phlegmonous change in the anterior abdominal soft tissues just deep the the skin carlos. Superiorly, there is an organized fluid collection. 3. Stable metastatic disease along the liver, undersurface of the diaphragm, mesentry and vaginal cuff. Dictated by: Minh Tom M.D. The radiology attending physician has personally reviewed this study, and had reviewed and/or edited this written report and agrees with it. Electronically signed by: Neo Ferguson M.D. us Felicity Sanders MD IM CT PROCEDURES Final Result * Magnesium (04/27/2019 9:10 PM CDT) Magnesium 2.1 1.4 - 2.5 mg/dL [facility] Blood specimen (specimen) 04/27/2019 9:10 PM CDT 04/27/2019 9:23 PM CDT us Notinfile Unknown LAB BLOOD ORDERABLES Final Res ult [facility] [address] [place] [address] * (ABNORMAL) Differential, auto (04/27/2019 9:10 PM CDT) Neutrophil abs 9.3(H) 1.7 - 6.5 K/cumm [facility] Imm gran abs 0.2(H) 0.0 - 0.1 K/[facility]umm [facility] Lymphocyte abs 0.4(L) 0.8 - 3.3 K/cumm [facility] Monocyte abs 0.9(H) 0.2 - 0.8 K/cumm [facility] Eosinophil abs 0.0 0.0 - 0.5 K/cumm [facility] Basophil abs 0.0 0.0 - 0.1 K/cumm [facility] Neutrophil pct 85.9 % [facility] Comment: Interpretive Data Percent cell count reference ranges are not reported, since discordance with absolute values may lead to misinterpretation of CBC data. Current Interpretive Data was last revised on 2017. Imm gran pct 1.4 % [facility] Comment: Interpretive Data Percent cell count reference ranges are not reported, since discordance with absolute values may lead to misinterpretation of CBC data. Current Interpretive Data was last revised on 2017. Lymphocyte pct 3.4 % [facility] Comment: Interpretive Data Percent cell count reference ranges are not reported, since discordance with absolute values may lead to misinterpretation of CBC data. Current Interpretive Data was last revised on 2017. Monocyte pct 8.3 % [facility] Comment: Interpretive Data Percent cell count reference ranges are not reported, since discordance with absolute values may lead to misinterpretation of CBC data. Current Interpretive Data was last revised on 2017. Eosinophil pct 0.5 % [facility] Comment: Interpretive Data Percent cell count reference ranges are not reported, since discordance with absolute values may lead to misinterpretation of CBC data. Current Interpretive Data was last revised on 2017. Basophil pct 0.5 % [facility] Comment: Interpretive Data Percent cell count reference ranges are not reported, since discordance with absolute values may lead to misinterpretation of CBC data. Current Interpretive Data was last revised on 2017. Blood specimen (specimen) 04/27/2019 9:10 PM CDT 04/27/2019 9:23 PM CDT us Petros Menon MD LAB BLOOD ORDERABLES Final Result [facility] [address] [place] [address] * Blood culture Blood (04/27/2019 9:10 PM CDT) Report Final Report: No growth [facility] Blood specimen (specimen) 04/27/2019 9:10 PM CDT 04/27/2019 9:41 PM CDT Narrative [facility] - 05/03/2019 7:01 AM CDT From a different site than #1. THE COLLECTION LOCATION IS 1. Blood cultures are incubated for 5 days on a continuously monitored blood culture system. The first report of a negative culture is issued within 24 hours of receipt of the specimen in the laboratory. 2. Positive culture results are reported as soon as they are detected. 3. The most important factor for detection of microbes in the setting of bloodstream infection is the volume of blood submitted for culture. Failure to collect an optimal blood volume can result in false negative blood cultures. For pediatric patients, the recommended blood volume to collect is 1 mL of blood per year of patient age (up to 20 mL) per blood culture set. For adult patients, 20 mL of blood, divided equally between aerobic and anaerobic blood culture bottles, is recommended for each blood culture set. 4. For blood cultures with Gram-positive cocci, a rapid molecular test for organism identification may be performed using the [employer] Gram-Positive Blood Culture Assay. This assay detects microbial DNA in positive blood culture broth via hybridization of target DNA to capture oligonucleotides on a microarray. This assay has been cleared by the [place] Food and Drug Administration and its performance characteristics have been verified by the [facility] Microbiology Laboratory. 5. For questions about this culture, contact the Microbiology Laboratory at [phone]. Interpretive data was last revised on 2018. Petros Menon MD LAB MICROBIOLOGY - [facility] ORDERABLES Final Result [facility] [place] [address] * Blood culture Blood (04/27/2019 9:10 PM CDT) Report Final Report: No growth [facility] Blood specimen (specimen) 04/27/2019 9:10 PM CDT 04/27/2019 9:41 PM CDT Narrative [facility] - 05/03/2019 7:01 AM CDT THE COLLECTION LOCATION IS 1. Blood cultures are incubated for 5 days on a continuously monitored blood culture system. The first report of a negative culture is issued within 24 hours of receipt of the specimen in the laboratory. 2. Positive culture results are reported as soon as they are detected. 3. The most important factor for detection of microbes in the setting of bloodstream infection is the volume of blood submitted for culture. Failure to collect an optimal blood volume can result in false negative blood cultures. For pediatric patients, the recommended blood volume to collect is 1 mL of blood per year of patient age (up to 20 mL) per blood culture set. For adult patients, 20 mL of blood, divided equally between aerobic and anaerobic blood culture bottles, is recommended for each blood culture set. 4. For blood cultures with Gram-positive cocci, a rapid molecular test for organism identification may be performed using the [employer] Gram-Positive Blood Culture Assay. This assay detects microbial DNA in positive blood culture broth via hybridization of target DNA to capture oligonucleotides on a microarray. This assay has been cleared by the [place] Food and Drug Administration and its performance characteristics have been verified by the [facility] Microbiology Laboratory. 5. For questions about this culture, contact the Microbiology Laboratory at [phone]. Interpretive data was last revised on 2018. us Petros Menon MD LAB MICROBIOLOGY - [facility] ORDERABLES Final Result [facility] Department [place] [address] * (ABNORMAL) Comprehensive metabolic panel (04/27/2019 9:10 PM CDT) Sodium 134(L) 135 - 145 mmol/L [facility] Potassium, pl 2.9(L) 3.3 - 4.9 mmol/L [facility] Chloride 95(L) 97 - 110 mmol/L [facility] CO2 25 22 - 32 mmol/L [facility] Anion gap 14 2 - 15 mmol/L [facility] BUN 16 8 - 25 mg/dL [facility] Creatinine 1.29(H) 0.60 - 1.10 mg/dL [facility] Glucose 209(H) 70 - 199 mg/dL [facility] [...] interpretive data was last revised 2017. Calcium 9.0 8.5 - 10.3 mg/dL [facility] Bilirubin, total 0.9 0.1 - 1.2 mg/dL [facility] Protein, pl 6.9 6.5 - 8.5 g/dL [facility] Albumin 2.8(L) 3.5 - 5.0 g/dL [facility] Alk phos 216(H) 40 - 130 Units/L [facility] ALT 36 7 - 45 Units/L [facility] AST 49(H) 10 - 45 Units/L [facility] Blood specimen (specimen) 04/27/2019 9:10 PM CDT 04/27/2019 9:23 PM CDT Narrative [facility] - 04/27/2019 9:56 PM CDT THE BJ COLLECTION LOCATION IS Petros Menon MD LAB BLOOD ORDERABLES Final Result [facility] [address] [address] * (ABNORMAL) CBC with auto differential (04/27/2019 9:10 PM CDT) [facility] WBC 10.8(H) 3.8 - 9.9 K/cumm [facility] Hgb 10.6(L) 11.9 - 15.5 g/dL [facility] Hct 33.4(L) 35.6 - 45.5 % [facility] Plt 322 150 - 400 K/cumm [facility] MPV 10.6 9.1 - 12.3 fL [facility] RBC 3.71(L) 3.90 - 5.20 M/cumm [facility] MCV 90.0 81.3 - 96.4 fL [facility] MCH 28.6 27.1 - 33.3 pg [facility] MCHC 31.7(L) 32.3 - 35.7 g/dL [facility] RDW CV 14.1 11.1 - 14.9 % [facility] RDW SD 46.0 35.7 - 48.1 fL [facility] NRBC abs 0.00 0.00 - 0.01 K/cumm [facility] Blood specimen (specimen) 04/27/2019 9:10 PM CDT 04/27/2019 9:23 PM CDT Narrative [facility] - 04/27/2019 9:31 PM CDT THE B[facility] COLLECTION LOCATION IS us Petros Menon MD LAB BLOOD ORDERABLES Final Result [facility] [address] [place] [address] * (ABNORMAL) POCT lactate (04/27/2019 9:00 PM CDT) Lactate POC i-STAT 2.4(H) 0.7 - 2.2 mmol/L [facility] Blood specimen (specimen) 04/27/2019 9:00 PM CDT 04/27/2019 9:00 PM CDT us Notinfile Unknown LAB POCT ORDERABLES - DEVICE F inal Result [facility] [address] [place] [address] documented in this encounter Visit Diagnoses Diagnosis Abscess- Primary Cellulitis and abscess of unspecified site Neuroendocrine carcinoma (HCC) Other malignant neoplasm of unspecified site documented in this encounter Administered Medications Inactive Administered Medications - up to 3 most recent administrations Medication Order MAR Action Action Date Dose Rate Site acetaminophen (TYLENOL) tablet 650 mg 650 mg, oral, Every 4 hours PRN, 1st line for pain, Starting on Sat04/28/19 at 0335, Indications: PainIndications:Pain Given 04/29/2019 1:06 PM CDT 650 mg cefepime (MAXIPIME) 2,000 mg/20 mL in sterile water (premix) 2,000 mg 2,000 mg, intravenous, at 40 mL/hr, Administer over 30 Minutes, Every 12 hours scheduled, First dose on Sat04/27/19 at 2232, Indications: Sepsis, Skin/Soft Tissue InfectionIndications:Sepsis, Skin/Soft Tissue Infection New Bag 04/28/2019 9:07 PM CDT 2,000 mg 40 m L/hr New Bag 04/28/2019 8:23 AM CDT 2,000 mg 40 mL/hr New Bag 04/27/2019 11:50 PM CDT 2,000 mg 40 mL/hr ciprofloxacin (CIPRO) tablet 500 mg 500 mg, oral, 2 times daily (for quinolones,etc), First dose on Sat04/29/19 at 0830, For 5 days, Administer ciprofloxacin at least 2 hours before or 6 hours after antacids (containing aluminum or magnesium), calcium or calcium containing foods such as milk or yogurt, MVI (containing iron or zinc), iron, zinc, sucralfate or buffered meds such as didanosine., Indications: Abdominal/Pelvic InfectionIndications:Abdominal/Pelvic Infection Given 05/02/2019 6:20 AM CDT 500 mg Given 05/01/2019 6:27 PM CDT 500 mg Given 05/01/2019 10:17 AM CDT 500 mg dextrose 5% and sodium chloride 0.45% infusion (premix) 100 mL/hr, intravenous, Continuous, Starting on Sat04/28/19 at 0336 New Bag 04/29/2019 5:41 AM CDT 100 mL/hr 100 mL/hr New Bag 04/28/2019 4:09 AM CDT 100 mL/hr 100 mL/hr DULoxetine DR (CYMBALTA) extended release capsule 30 mg 30 mg, oral, Daily, First dose on Sat04/28/19 at 0900, Capsule may be opened and contents mixed with applesauce or apple juice ONLY. Do not crush, chew, cut, dissolve, open or otherwise manipulate tablet/capsule. Given 05/04/2019 9:37 AM CDT 30 mg Given 05/03/2019 8:13 AM CDT 30 mg Given 05/02/2019 3:02 PM CDT 30 mg enoxaparin (LOVENOX) syringe 40 mg 40 mg, subcutaneous, Daily (for enoxaparin), First dose on Sat04/28/19 at 2100, Indications: Deep Vein Thrombosis PreventionIndications:Deep Vein Thrombosis Prevention Given 05/03/2019 9:21 PM CDT 40 mg Right Lower Abdomen Given 05/02/2019 8:30 PM CDT 40 mg Le ft Lower Abdomen Given 05/01/2019 9:03 PM CDT 40 mg Le ft Lower Abdomen famotidine (PEPCID) tablet 20 mg 20 mg, oral, Daily, First dose on Sat04/28/19 at 1330 Given 05/04/2019 9:37 AM CDT 20 mg Given 05/03/2019 8:13 AM CDT 20 mg Given 05/02/2019 3:02 PM CDT 20 mg hydroCHLOROthiazide (HYDRODIURIL) tablet 12.5 mg 12.5 mg, oral, Daily, First dose on Sat05/03/19 at 0930 Given 05/04/2019 9:37 AM CDT 12.5 mg Given 05/03/2019 10:44 AM CDT 12.5 mg HYDROmorphone (DILAUDID) injection 0.4 mg 0.4 mg, intravenous, Administer over 2 Minutes, Once, On Sat04/28/19 at 1530, For 1 dose, Indications: bedside wound irrigationIndications:beds shaq wound irrigation Given 04/28/2019 2:49 PM CDT 0.4 mg influenza trivalent (FLUZONE HIGH DOSE) 180 mcg/0.5 mL vaccine (HIGH DOSE age 65 years and up) 0.5 mL 0.5 mL, intramuscular, During hospitalization, immunization, Starting on Sat04/28/19 at 0830, For 1 dose Given 05/04/2019 5:32 PM CDT 0.5 mL Right Deltoid ioversol (OPTIRAY 350) syringe syringe 100 mL 100 mL, intravenous, Once in imaging, contrast, Starting on Sat04/27/19 at 2205, For 1 dose Given 04/27/2019 10:17 PM CDT 100 mL Lactated Ringer's (LR) bolus 1,000 mL 1,000 mL, intravenous, at 250 mL/hr, Administer over 4 Hours, Once, On Sat05/02/19 at 1245, For 1 dose New 05/02/2019 1:14 PM CDT 1,000 mL 250 mL/hr magnesium sulfate 2 g/50 mL in water (premix) 2 g 2 g, intravenous, Administer over 60 Minutes, Once, On Sat05/03/19 at 0715, For 1 dose, Indications: hypomagnesemiaIndications: hypomagnesemia New 05/03/2019 8:12 AM CDT 2 g metroNIDAZOLE (FLAGYL) 500 mg/100 mL in sodium chloride (premix) 500 mg 500 mg, intravenous, at 200 mL/hr, Administer over 30 Minutes, Every 8 hours scheduled, First dose on Sat04/28/19 at 1000, Room temperature only, Indications: Abdominal/Pelvic InfectionIndications:Abdom inal/Pelvic Infection New Bag 04/29/2019 5:40 AM CDT 500 mg 200 mL/hr New 04/28/2019 10:58 PM CDT 500 mg 200 mL/hr New 04/28/2019 10:09 AM CDT 500 mg 200 mL/hr metroNIDAZOLE (FLAGYL) 500 mg/100 mL in sodium chloride (premix) 500 mg 500 mg, intravenous, at 200 mL/hr, Administer over 30 Minutes, Once, On Sat04/28/19 at 0030, For 1 dose, Room temperature only, Indications: Abdominal/Pelvic InfectionIndications:Abdominal/Pelv ic Infection New Bag 04/28/2019 1:45 AM CDT 500 mg 200 mL/hr metroNIDAZOLE (FLAGYL) tablet 500 mg 500 mg, oral, 3 times daily, First dose on Sat04/29/19 at 1600, For 5 days, Indications: Abdominal/Pelvic InfectionIndications:Abdominal/Pelv ic Infection Given 05/02/2019 8:30 PM CDT 500 mg Given 05/02/2019 3:01 PM CDT 500 mg Given 05/01/2019 10:18 PM CDT 500 mg montelukast (SINGULAIR) tablet 10 mg 10 mg, oral, Nightly, First dose on Sat04/28/19 at 2100 Given 05/03/2019 9:16 PM CDT 10 mg Given 05/02/2019 8:30 PM CDT 10 mg Given 05/01/2019 9:04 PM CDT 10 mg ondansetron ODT (ZOFRAN-ODT) disintegrating tablet 4 mg 4 mg, oral, Every 6 hours PRN, nausea, vomiting, Starting on Sat05/01/19 at 0635 Given 05/01/2019 6:47 AM CDT 4 mg oxybutynin (DITROPAN) tablet 5 mg 5 mg, oral, 2 times daily, First dose on Sat04/28/19 at 0900, Indications: Bladder HyperactivityIndications:Bladder Hyperactivity Given 05/04/2019 9: 37 AM CDT 5 mg Given 05/03/2019 9:16 PM CDT 5 mg Given 05/03/2019 8:13 AM CDT 5 mg oxyCODONE (ROXICODONE) tablet 5 mg 5 mg, oral, Every 4 hours PRN, 2nd line for pain, Starting on Sat04/28/19 at 0335, May administer 1 hour after 1st line agent for uncontrolled or increasing pain., Indications: PainIndications:Pain Given 04/29/2019 5:39 AM CDT 5 mg potassium chloride 20 mEq/260 mL in sodium chloride 0.9% (premix) 20 mEq 20 mEq, intravenous, Administer over 2 Hours, Once, On Lydia 04/30/19 at 0345, For 1 dose, Total dose = 60 mEq. Start immediately after first potassium chloride infusion ends., Indications: hypokalemiaIndications:hypokalemia New Bag 04/30/2019 4:42 AM CDT 20 mEq potassium chloride 40 mEq/520 mL in sodium chloride 0.9% (premix) 40 mEq 40 mEq, intravenous, at 130 mL/hr, Administer over 4 Hours, Once, On Lydia 04/30/19 at 0345, For 1 dose, Total dose = 60 mEq, Indications: hypokalemiaIndications:hypokalemia New Bag 04/30/2019 8:20 AM CDT 40 mEq 130 mL/hr potassium chloride ER (KLOR-CON) extended release tablet 40 mEq 40 mEq, oral, Once, On Sat04/27/19 at 2205, For 1 dose, Do not crush, chew, cut, dissolve, open or otherwise manipulate tablet/capsule. Given 04/27/2019 11:53 PM CDT 40 mEq simvastatin (ZOCOR) tablet 20 mg 20 mg, oral, Daily, First dose on Sat04/28/19 at 0900 Given 05/04/2019 9:37 AM CDT 20 mg Given 05/03/2019 8:13 AM CDT 20 mg Given 05/02/2019 3:01 PM CDT 20 mg sodium chloride 0.9% 0.9% infusion - ADS Override Pull Starting on Sat04/30/19 at 0425, For 1 dose, Created by cabinet override New Bag 04/30/2019 4:42 AM CDT 500 mL sodium chloride 0.9% bolus 2,448 mL 2,448 mL (30 mL/kg ? 81.6 kg), intravenous, Once, On Sat04/27/19 at 2119, For 1 dose, Infuse 999 ml/hr. Contact MD when complete to reassess. New Bag 04/27/2019 9:24 PM CDT 2,448 mL sodium chloride 0.9% flush 0.5-20 mL 0.5-20 mL, intra-catheter, Every 8 hours scheduled, First dose on Sat04/28/19 at 0600, Flush volume based on line type and size. Given 05/03/2019 8:03 PM CDT 10 mL Given 05/02/2019 6:20 AM CDT 10 mL Given 05/01/2019 10:19 PM CDT 10 mL sodium phosphate 40 mmol in sodium chloride 0.9% 500 mL IVPB 40 mmol, intravenous, at 64.2 mL/hr, Administer over 8 Hours, Once, On Sat05/03/19 at 0715, For 1 dose New Bag 05/03/2019 10:44 AM CDT 40 mmol 64.2 mL/hr vancomycin 1,250 mg/262.5 mL in sodium chloride 0.9% (premix) 1,250 mg 1,250 mg (rounded from 1,224 mg = 15 mg/kg ? 81.6 kg), intravenous, Administer over 60 Minutes, 2 times daily, First dose on Sat04/27/19 at 2232, Indications: Sepsis, Skin/Soft Tissue InfectionIndications:Sepsis,Ski n/Soft Tissue Infection New Bag 04/28/2019 12:08 PM CDT 1,250 mg New Bag 04/28/2019 12:22 AM CDT 1,250 mg documented in this encounter Active and Recently Administered Medications Times are shown in CDT. Scheduled Medication Order 05/02/2019 05/03/2019 05/04/2019 ciprofloxacin (CIPRO) tablet 500 mg (CANCELED) 500 mg, oral, 2 times daily (for quinolones,etc), First dose on Sat04/29/19 at 0830, For 5 days, Administer ciprofloxacin at least 2 hours before or 6 hours after antacids (containing aluminum or magnesium), calcium or calcium containing foods such as milk or yogurt, MVI (containing iron or zinc), iron, zinc, sucralfate or buffered meds such as didanosine., Indications: Abdominal/Pelvic Infection 0620 (Given - Provider: Joy Perkins RN)1938 (Not Given - Provider: Jef Joshi RN - Reason: Patient/family refused) 1037 (Not Given - Provider: Jef Joshi RN - Reason: Order Discontinued) DULoxetine DR (CYMBALTA) extended release capsule 30 mg 30 mg, oral, Daily, First dose on Sat04/28/19 at 0900, Capsule may be opened and contents mixed with applesauce or apple juice ONLY. Do not crush, chew, cut, dissolve, open or otherwise manipulate tablet/capsule. 1502 (Given - Provider: Jef Joshi RN) 0813 (Given - Provider: Jef Joshi RN) 0937 (Given - Provider: Jef Joshi RN) enoxaparin (LOVENOX) syringe 40 mg 40 mg, subcutaneous, Daily (for enoxaparin), First dose on Sat04/28/19 at 2100, Indications: Deep Vein Thrombosis Prevention 2030 (Given - Provider: Ashley Ayers, RN) 2121 (Given - Provider: Joy Perkins, [place]) famotidine (PEPCID) tablet 20 mg 20 mg, oral, Daily, First dose on Sat04/28/19 at 1330 1502 (Given - Provider: Jef Joshi RN) 0813 (Given - Provider: Jef Joshi RN) 0937 (Given - Provider: Jef Joshi RN) hydroCHLOROthiazide (HYDRODIURIL) tablet 12.5 mg 12.5 mg, oral, Daily, First dose on Sat05/03/19 at 0930 1044 (Given - Provider: Jef Joshi RN) 0937 (Given - Provider: Jef Joshi RN) Lactated Ringer's (LR) bolus 1,000 mL (COMPLETED) 1,000 mL, intravenous, at 250 mL/hr, Administer over 4 Hours, Once, On Sat05/02/19 at 1245, For 1 dose 1314 (New Bag - Provider: Jef Joshi RN)1822 (Stopped - Provider: Jef Joshi RN) magnesium sulfate 2 g/50 mL in water (premix) 2 g (COMPLETED) 2 g, intravenous, Administer over 60 Minutes, Once, On Sat05/03/19 at 0715, For 1 dose, Indications: hypomagnesemia 0812 (New Bag - Provider: Jef Joshi RN)1038 (Stopped - Provider: Jef Joshi RN) metroNIDAZOLE (FLAGYL) tablet 500 mg (CANCELED) 500 mg, oral, 3 times daily, First dose on Sat04/29/19 at 1600, For 5 days, Indications: Abdominal/Pelvic Infection 0900 (Not Given - Provider: Jef Joshi RN - Reason: Other - Comment: Nauseated)1501 (Given - Provider: Jef Joshi RN)2030 (Given - Provider: Ashley Ayers RN) 1038 (Not Given - Provider: Jef Joshi RN - Reason: Order Discontinued) montelukast (SINGULAIR) tablet 10 mg 10 mg, oral, Nightly, First dose on Sat04/28/19 at 2100 2030 (Given - Provider: Ashley Ayers RN) 2115 (Given - Provider: Joy Perkins, [place]) oxybutynin (DITROPAN) tablet 5 mg 5 mg, oral, 2 times daily, First dose on Sat04/28/19 at 0900, Indications: Bladder Hyperactivity 1456 (Given - Provider: Jef Joshi RN)2029 (Given - Provider: Ashley Ayers RN) 08 (Given - Provider: Jef Joshi RN)2115 (Given - Provider: Joy Perkins, [place]) 0937 (Given - Provider: Jef Joshi RN) simvastatin (ZOCOR) tablet 20 mg 20 mg, oral, Daily, First dose on Sat04/28/19 at 0900 1501 (Given - Provider: Jef Joshi RN) 0813 (Given - Provider: Jef Joshi RN) 0937 (Given - Provider: Jef Joshi RN) sodium chloride 0.9% flush 0.5-20 mL 0.5-20 mL, intra-catheter, Every 8 hours scheduled, First dose on Sat04/28/19 at 0600, Flush volume based on line type and size. 0620 (Given - Provider: Joy Perkins RN)1445 (Not Given - Provider: Jef Joshi RN - Reason: Order parameters not met)2041 (Not Given - Provider: Ashley Ayers RN - Reason: IV Infusing) 05 (Not Given - Provider: Ashley Ayers RN - Reason: Other)1357 (Not Given - Provider: Jef Joshi RN - Reason: Order parameters not met)2002 (Given - Provider: Joy Perkins, [place]) 0624 (Not Given - Provider: Joy Perkins RN - Reason: Other)1618 (Not Given - Provider: Jef Joshi RN - Reason: Other) sodium phosphate 40 mmol in sodium chloride 0.9% 500 mL IVPB (COMPLETED) 40 mmol, intravenous, at 64.2 mL/hr, Administer over 8 Hours, Once, On Sat05/03/19 at 0715, For 1 dose 1044 (New Bag - Provider: Jef Joshi, [place])1857 (Stopped - Provider: Jef Joshi, RN) PRN Medication Order 05/02/2019 05/03/2019 05/04/2019 acetaminophen (TYLENOL) tablet 650 mg 650 mg, oral, Every 4 hours PRN, 1st line for pain, Starting on Sat04/28/19 at 0335, Indications: Pain influenza trivalent [id number] (FLUZONE HIGH DOSE) 180 mcg/0.5 mL vaccine (HIGH DOSE age 65 years and up) 0.5 mL (COMPLETED) 0.5 mL, intramuscular, During hospitalization, immunization, Starting on Sat04/28/19 at 0830, For 1 dose 1732 (Given - Provid er: Jef Joshi RN) ondansetron ODT (ZOFRAN-ODT) disintegrating tablet 4 mg 4 mg, oral, Every 6 hours PRN, nausea, vomiting, Starting on Sat05/01/19 at 0635 oxyCODONE (ROXICODONE) tablet 5 mg 5 mg, oral, Every 4 hours PRN, 2nd line for pain, Starting on Sat04/28/19 at 0335, May administer 1 hour after 1st line agent for uncontrolled or increasing pain., Indications: Pain sodium chloride 0.9% flush 0.5-20 mL 0.5-20 mL, intra-catheter, As needed, line care, Starting on Sat04/28/19 at 0335, Flush volume based on line type and size. Flush before and after each use. documented in this encounter Orders Medications Ordered That Brett ht Not Have Been Administered Count Last Ordered Date First Ordered Date potassium chloride ER (KLOR- CON) extended release tablet 40 mEq 1 04/29/2019 sodium chloride 0.9% flush 0.5-20 mL 1 04/08 Lab Orders Without Results Count Last Ordered D ate First Ordered Date MAGNESIUM 1 04/27/2019 POCT LACTATE - DEVICE 2 04/27/2019 Consult Count Last Ordered Date First Orde red Date IP CONSULT TO VASCULAR ACCESS TEAM 2 2018 CONSULT TO WOUND CARE 2 04/29/20192018 IP CONSULT TO COLORECTAL SURGERY 1 04/27/20 19 IV Count Last Ordered Date First Orde red Date SALINE LOCK IV 1 04/27/2019 ADT Patient Update Count Last Ordered Date Firs t Ordered Date ED IP DECISION TO ADMIT 1 04/27/2019 documented in this encounter Care Teams Discharge Specialist Relationship Specialty Start Date End Date Julio César Briseno MD PCP - General 10/01/16 Eren Cr MD Referring Physician Medical Oncology 11/25/18 Yohana Bowen MD Radiation Oncologist Radiation Oncology 11/25/18 documented as of this encounter
--- OUTSIDE RECORDS SUMMARY | 2024-06-25 22:34 | XMS_ITS | Encounter Summary ---
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 Home Care Visit [facility] Home Health [address] [address] [address] [place] [address] Misa Barrow RN SN OASIS DISCHARGE Social History Tobacco Use Types Packs/Day Years Used Date Smoking Tobacco: Never Smokeless Tobacco: Never Alcohol Use Standard Drinks/Week Comments Yes 1 (1 standard drink = 0.6 oz pur e alcohol) Comments No Sex and Gender Information Value Date Recorded Sex Assigned at Not on file Legal Sex Female 2:41 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 Gender Identity Not on file Sexual Orientation Straight 02/19/2021 9: 29 AM CDT Occupation Industry Job Start Date Job End Date retired Not on file Not on file Not on file documented as of this encounter Last Filed Vital Signs Vital Sign Reading Time Taken Comments Blood Pressure 118/70 06/12/2019 1:13 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 Pulse 76 06/12/2019 1:13 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 Temperature 36.8 ??C (98.2 ??F) 06/12/2019 1:13 PM CS T Respiratory Rate 16 06/12/2019 1:13 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 Oxygen Saturation 96% 06/12/2019 1:13 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 Inhaled Oxygen Concentration - - Weight - - Height - - Body Mass Index - - documented in this encounter Plan of Treatment Not on file documented as of this encounter Visit Diagnoses Not on filedocumented in this encounter Home Health Visit - Care Plan Visit Details Visit Type -SN OASIS Dischar ge Discipline -Custodial Problems Problem Description Start Date Status Goals Interventions Homebound Status Disciplines: Custodial, Occupational Therapy Patient's homebound status 9 Resolved on 06/12/2019 1 goal linked to scheduled/docume nted intervention 1 goal intervention scheduled/documen omar in this visit Monitor patient's vital signs every home health visit Disciplines: Custodial, Occupational Therapy Monitor patient's vital signs every home health visit. 9 Resolved on 06/12/2019 1 goal linked to scheduled/docume nted intervention 1 goal intervention scheduled/documen omar in this visit Wound Education and Management Disciplines: Custodial Deficiency of cognitive information related to wound care 9 Resolved on 06/12/2019 1 goal linked to scheduled/docume nted intervention 1 goal intervention scheduled/documen omar in this visit Goals Goal Associated Problem Outcome Goal Met? Visit Notes Patient recieves care at the most appropriate care setting Description: Patient receives care at the most appropriate care setting. Homebound Status No Measure vital signs during every home health visit during episode of care Description: Home home health clinician to measure vital signs during every home health visit during episode of care. Monitor patient's vital signs every home health visit No Knowledgeable on Woundcare Description: Patient/caregiver will be knowledgeable on woundcare procedure, wound healing and when to seek medical attention by 2nd visit Wound Education and Management No Interventions Intervention Associated Problem/Goal Status Variance Visit Notes Homebound Status Description: Patient is homebound due to difficulty in ambulation as evidenced by recent abdominal surgery for a bowel obstruction and a new Colostomy and needs assistance with all ADLS and IADLS Problem:Homebound Status Goal:Patient recieves care at the most appropriate care setting Scheduled Monitor Vital Signs Description: Monitor blood pressure, pulse, oxygen saturation, respirations Problem:Monitor patient's vital signs every home health visit Goal:Measure vital signs during every home health visit during episode of care Scheduled Demonstration of Wound Care Description: Patient/caregiver will complete a return demonstration on wound care to SN or PT. Observed return wound care on 04/26/19 Problem:Wound Education and Management Goal:Knowledgeable on Woundcare Completed documented in this encounter Home Health Visit - Actions and Narratives Actions Patient requests discharge t his day with patient family and patient able to care for ostomy needs. Patient to go on line and set up ostomy supplies via [employer] . patient given all information to set up account and how to order supplies. documented in this encounter Care Teams Slot Router Relationship Specialty Start Date End Date Julio César Briseno MD PCP - General 10/01/16 Eren Cr MD Referring Physician Medical Oncology 11/25/18 Yohana Bowen MD Radiation Oncologist Radiation Oncology 11/25/18 documented as of this encounter
--- OUTSIDE RECORDS SUMMARY | 2024-06-25 22:34 | XMS_ITS | Encounter Summary ---
Author Organization [facility] Healthcare Address [address] [place] [address] Care Team Providers Care Title Insurance Examiner Name Role Phone Julio César Briseno MD Primary Care Provider [phone] Eren Cr MD Unavailable [phone] Yohana Boewn MD Unavailable Encounter Details Date Type Department Care Team (Late st Contact Info) Description 06/02/2019 Telephone [facility] [address] [place] [address] Yvonne Villeda, RN Social History Tobacco Use Types Packs/Day Years Used Date Smoking Tobacco: Never Smokeless Tobacco: Never Alcohol Use Standard Drinks/Week Comments Yes 1 (1 standard drink = 0.6 oz pur e alcohol) Comments No Sex and Gender Information Value Date Recorded Sex Assigned at Not on file Legal Sex Female 2:41 PM RELASTER Gender Identity Not on file Sexual Orientation Straight 02/19/2021 9: 29 AM CDT Occupation Industry Job Start Date Job End Date retired Not on file Not on file Not on file documented as of this encounter Miscellaneous Notes * Telephone Encounter - Yvonne Villeda RN - 06/02/2019 4:26 PM CST Preprocedure Phone Call Procedure Time Verified: Yes Arrival Time Verified: Yes Procedure Location Verified: Yes Medical History Reviewed: Yes NPO Status Reinforced: No Ride and Caregiver Arranged: Yes Patient Knows to Bring Current Medications: Yes Patient Knows to Bring CPAP: No Is Patient on Home Ventilator?: No Is Patient on Blood Thinners?: No STER documented in this encounter Plan of Treatment Not on file documented as of this encounter Visit Diagnoses Not on filedocumented in this encounter Care Teams Title Insurance Examiner Relationship Specialty Start Date End Date Julio César Briseno MD PCP - General 10/01/16 Eren Cr MD Referring Physician Medical Oncology 11/25/18 Yohana Bowen MD Radiation Oncologist Radiation Oncology 11/25/18 documented as of this encounter
--- OUTSIDE RECORDS SUMMARY | 2024-06-25 22:34 | XMS_ITS | Encounter Summary ---
Author Organization [facility] Address [address] [place] [address] Phone Care Team Providers Care Gasoline Engine Assembler Name Role Phone Julio César Briseno MD Primary Care Provider [phone] Eren Cr MD Unavailable [phone] Yohana Bowen MD Unavailable Reason for Visit * Reason Comments Ostomy Care Encounter Details Date Type Department Care Team (Latest Contact Info) Description 05/20/2019 1:00 PM CONTROL SYSTEMS ENG Clinical Support [facility] 8th [place] [address] [place] [address] (CMS/[facility]) (Primary Dx) Social History Tobacco Use Types Packs/Day Years Used Date Smoking Tobacco: Never Smokeless Tobacco: Never Alcohol Use Standard Drinks/Week Comments Yes 1 (1 standard drink = 0.6 oz pur e alcohol) Comments No Sex and Gender Information Value Date Recorded Sex Assigned at Not on file Legal Sex Female 2:41 PM CONTROL SYSTEMS ENG Gender Identity Not on file Sexual Orientation Straight 02/19/2021 9: 29 AM CDT Occupation Industry Job Start Date Job End Date retired Not on file Not on file Not on file documented as of this encounter Progress Notes * Darling Garcia LPN - 05/20/2019 1:00 PM CST Ostomy Assessment 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 Their chief complaint is pouch leakage and skin irritation. Stoma is flush, pink and moist , with mucocutaneous junction. Their output is soft. Parastomal skin is denuded circumferentially. Crease at 3 and 9 o'clock. Measured at 1 . I recommended crusting and frequent pouch changes (every 2 days), convex pouch with convex barrier ring, stick barrier paste applied to creases. Patient was provided with samples. Recommended following up prn. Patient was educated on diet, hydration, exercise, body image. Samples requested from mary for convex barrier ring. 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
--- OUTSIDE RECORDS SUMMARY | 2024-06-25 22:34 | XMS_ITS | Encounter Summary ---
Author Organization [facility] Home Care Servic es Address [address] [place] [address] Phone Care Team Providers Care Drying And Winding Supervisor Name Role Phone Julio César Briseno MD Primary Care Provider [phone] Eren Cr MD Unavailable [phone] Yohana Bowen MD Unavailable Reason for Visit * Auth/Cert Specialty Diagnoses / Procedures Referred By Evelyne t Referred To Contact Referral ID Status Reason Start Date Expiration Date Visits Re quested Visits Authorized [id number] 1 1 Encounter Details Date Type Department Care Team (Late st Contact Info) Description 05/22/2019 1:00 PM DEBT COLLECTOR Home Care Visit [facility] Health [address] [address] [address] [place] [address] Misa Barrow RN SN HOME VISIT Social History Tobacco Use Types Packs/Day Years Used Date Smoking Tobacco: Never Smokeless Tobacco: Never Alcohol Use Standard Drinks/Week Comments Yes 1 (1 standard drink = 0.6 oz pur e alcohol) Comments No Sex and Gender Information Value Date Recorded Sex Assigned at Not on file Legal Sex Female 2:41 PM DEBT COLLECTOR Gender Identity Not on file Sexual Orientation Straight 02/19/2021 9: 29 AM CDT Occupation Industry Job Start Date Job End Date retired Not on file Not on file Not on file documented as of this encounter Last Filed Vital Signs Vital Sign Reading Time Taken Comments Blood Pressure 128/68 05/22/2019 2:17 PM DEBT COLLECTOR Pulse 88 05/22/2019 2:17 PM DEBT COLLECTOR Temperature 36.9 ??C (98.4 ??F) 05/22/2019 2:17 PM CS T Respiratory Rate 18 05/22/2019 2:17 PM DEBT COLLECTOR Oxygen Saturation 98% 05/22/2019 2:17 PM DEBT COLLECTOR Inhaled Oxygen Concentration - - Weight - - Height - - Body Mass Index - - documented in this encounter Plan of Treatment Not on file documented as of this encounter Visit Diagnoses Not on filedocumented in this encounter Home Health Visit - Care Plan Visit Details Visit Type -SN Home Visit Discipline -Residential Problems Problem Description Start Date Status Goals Interve ntions Homebound Status Disciplines: Residential, Occupational Therapy Patient's homebound status 04/26/2019 Active 1 goal linked to scheduled/docume nted intervention 1 goal intervention scheduled/documen omar in this visit Monitor patient's vital signs every home health visit Disciplines: Residential, Occupational Therapy Monitor patient's vital signs every home health visit. 04/26/2019 Active 1 goal linked to scheduled/docume nted intervention 1 goal intervention scheduled/documen omar in this visit Casper Precautions Disciplines: Residential, Occupational Therapy Casper Precautions 04/26/2019 Active 1 goal linked to scheduled/docume nted intervention 1 goal intervention scheduled/documen omar in this visit Risk for deficient fluid volume Disciplines: Residential At risk for decreased fluid related to Colostomy 04/26/2019 Active 1 goal linked to scheduled/docume nted intervention 1 goal intervention scheduled/documen omar in this visit Coping with disturbed body image Disciplines: Residential change in mental picture related to Colostomy 04/26/2019 Active 1 goal linked to scheduled/docume nted intervention 1 goal intervention scheduled/documen omar in this visit Knowledge Deficit - Ostomy Disciplines: Residential 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 04/26/2019 Active 1 goal linked to scheduled/docume nted intervention 1 goal intervention scheduled/documen omar in this visit Wound Risk of Infection Disciplines: Residential Risk of infections related to wounds 04/26/2019 Active 1 goal linked to scheduled/docume nted intervention 1 goal intervention scheduled/documen omar in this visit Wound Care Disciplines: Residential Wound care needed 05/15/2019 Active 1 goal linked to scheduled/docume nted [...] vital signs every home health visit No Demonstrate knowledge of universal precautions Description: Demonstrate knowledge of universal precautions Cas[place] Precautions No Maintain Hydration Description: Maintain adequate hydration as evidenced by moist mucous membranes, good skin tugor stable vital signs and appropriate output. Risk for deficient fluid volume No Acceptance of Ostomy Description: Patient will state acceptance of self by demonstrating self-care Coping with disturbed body image No Verbalize understanding of Ostomy Description: Patient with verbalize understanding of ostomy care, potential complications, correctly perform appliance change and initiate necessary lifestyle changes by 4th week of Homecare Knowledge Deficit - Ostomy No Knowledgeable of infection Description: : Patient will remain free of infection and able to recognizes of signs of infection by first visit Wound Risk of Infection No Progression towards healing Description: Wound show progression towards healing by 05/23/19 Wound Care No Interventions Intervention Associated Problem/Goal Status Variance Visit Notes Homebound Status Description: Patient is homebound due to difficulty in ambulation as evidenced by recent abdominal surgery for a bowel obstruction and a new Colostomy and needs assistance with all ADLS and IADLS Problem:Homebound Status Goal:Patient recieves care at the most appropriate care setting Completed Patient is homebound due to difficulty in ambulation as evidenced by recent abdominal surgery for a bowel obstruction and a new Colostomy and needs assistance with all ADLS and IADLS continues 05/22 Monitor Vital Signs Description: Monitor blood pressure, pulse, oxygen saturation, respirations Problem:Monitor patient's vital signs every home health visit Goal:Measure vital signs during every home health visit during episode of care Completed Aspects of Care Description: Instruct patient/caregiver on universal precautions and home infection control measures Problem:Cas[place] Precautions Goal:Demonstrate knowledge of universal precautions Completed Instruct on dehydration Description: Contact MD and/or CWON if ileostomy patient output is greater than 1200 ml in 24hrs. May consult RD for ideas/education Problem:Risk for deficient fluid volume Goal:Maintain Hydration Completed drink plenty of water to prevent dehydration and any liquid food to increase hydration Assess of Ostomy Healing Description: Instruct on areas of healing and what a normal stoma appearance is. Problem:Coping with disturbed body image Goal:Acceptance of Ostomy Completed Instruct on areas of healing and what a normal stoma appearance is pink Educate on Ostomy Appliance Description: Intervention Description: Instruct patient/caregiver to return demo of appliance change may include written and or phots directions. Problem:Knowledge Deficit - Ostomy Goal:Verbalize understanding of Ostomy Completed Intervention Description: Instruct patient/caregiver to return demo of appliance change may include written and or phots directions. Patient daughter did ostomy change this day with assist and cueing Instruct patient/family/caregi bernabe on infection control and safe disposal of dressing materials Description: Instruct patient/caregiver on how to recognized signs and symptoms of infection and when to notify STORE SHOPPER and/or physician per Wound Education Booklet. Instruct patient/caregiver on infection control measures and how to prevent infections Problem:Wound Risk of Infection Goal:Knowledgeable of infection Completed Instruct on hand washing before and after using the bathroom, after removing gloves or other protective clothing, before preparing food, after eating or smoking, immediately after hand contact with blood or other body fluids or feces, and frequently throughout the day. Instruct patient/caregiver to wear gloves any time they may have direct contact with blood, body fluids, non-intact skin, or surfaces soiled with blood or body fluids. Instruct patient/caregiver to dispose of soiled dressings and supplies in a plastic trash bag, seal, and place in regular trash. patient stataes understanding Perform dressing change Description: Perform dressing change: Site abdominl wound, Skilled Nurse and Caregiver to perform dressing change as of 05/15/19, Frequency twice hardin and PRN for excess drainage or dislodgement of dressing. Wound care as follows: cleanse with wound cleanser , pack with normal saline damp gauze, cover with dry gauze and secure with medipore tape. New order confirmed by MD notes from Patient office visit on 05/14/19 Dr Cifuentes Problem:Wound Care Goal:Progression towards healing Completed documented in this encounter Home Health Visit - Actions and Narratives Actions #[id number] Coloplast 73824 #10 [employer] Convex ring #35794 #10 Braba strips paste coloplast 1 box 1 box no sting skin prep Patient saw ostomy nurse on wednesday who changed the type of bag and ostomy care documented in this encounter Care Teams Drying And Winding Supervisor Relationship Specialty Start Date End Date Julio César Briseno MD PCP - General 10/01/16 Eren Cr MD Referring Physician Medical Oncology 11/25/18 Yohana Bowen MD Radiation Oncologist Radiation Oncology 11/25/18 documented as of this encounter
--- OUTSIDE RECORDS SUMMARY | 2024-06-25 22:34 | XMS_ITS | Encounter Summary ---
Author Organization [facility] Home Care Servic es Address [address] [place] [address] Phone Care Team Providers Care Charge Weigher Name Role Phone Julio César Briseno MD Primary Care Provider [phone] Eren Cr MD Unavailable [phone] Yohana Bowen MD Unavailable Reason for Visit * Auth/Cert Specialty Diagnoses / Procedures Referred By Evelyne t Referred To Contact Referral ID Status Reason Start Date Expiration Date Visits Re quested Visits Authorized [id number] 1 1 Encounter Details Date Type Department Care Team (Late st Contact Info) Description 04/27/2019 Home Care Visit [facility] Home Health [address] [address] [address] [place] [address] Valentina Talbot RN SN OASIS TRANSFER W/OUT DC Social History Tobacco Use Types Packs/Day Years Used Date Smoking Tobacco: Never Smokeless Tobacco: Never Alcohol Use Standard Drinks/Week Comments Yes 1 (1 standard drink = 0.6 oz pur e alcohol) Comments No Sex and Gender Information Value Date Recorded Sex Assigned at Not on file Legal Sex Female 2:41 PM DYER ASSISTANT Gender Identity Not on file Sexual [...] Plan Visit Details Visit Type -SN OASIS Transfe r w/o DC Discipline -Long Term Problems Problem Description Start Date Status Goals Interve ntions Homebound Status Disciplines: Long Term, Occupational Therapy Patient's homebound status 04/26/2019 Active 1 goal linked to scheduled/docume nted intervention 1 goal intervention scheduled/documen omar in this visit Monitor patient's vital signs every home health visit Disciplines: Long Term, Occupational Therapy Monitor patient's vital signs every [...] vital signs every home health visit No Interventions Intervention Associated Problem/Goal Status Variance [...] health visit during episode of care Scheduled documented in this encounter Care Teams Charge Weigher Relationship Specialty Start Date End Date Julio César Briseno MD PCP - General 10/01/16 Eren Cr MD Referring Physician Medical Oncology 11/25/18 Yohana Bowen MD Radiation Oncologist Radiation Oncology 11/25/18 documented as of this encounter
--- OUTSIDE RECORDS SUMMARY | 2024-06-25 22:34 | XMS_ITS | Encounter Summary ---
Author Organization [facility] Address [address] [place] [address] Phone Care Team Providers Care Resolution Rep Name Role Phone Julio César Briseno MD Primary Care Provider Eren Cr MD Unavailable [phone] Yohana Bowen MD Unavailable Encounter Details Date Type Department Care Team (Late st Contact Info) Description 06/03/2019 Documentation [facility] [address] [facility] Advanced Medicine [address]th [place] [address] [place] [address] Maylea Williamson RN Social History Tobacco Use Types Packs/Day Years Used Date Smoking Tobacco: Never Smokeless Tobacco: Never Alcohol Use Standard Drinks/Week Comments Yes 1 (1 standard drink = 0.6 oz pur e alcohol) Comments No Sex and Gender Information Value Date Recorded Sex Assigned at Not on file Legal Sex Female 2:41 PM RESIDENTIAL SALES REPRESENTATIVE Gender Identity Not on file Sexual Orientation Straight 02/19/2021 9: 29 AM CDT Occupation Industry Job Start Date Job End Date retired Not on file Not on file Not on file documented as of this encounter Nursing Notes * Mayela Williamson, [place] - 06/03/2019 10:55 AM CST Reviewed Chromagranin A level from 06/[address] Cr, 376 up from 203 on 03/31/19. He said ok for patient to proceed with treatment plan for [place] 06/10, and return to clinic 07/20/19 with repeat Chromagranin A. DENTIAL SALES REPRESENTATIVE documented in this encounter Plan of Treatment Not on file documented as of this encounter Visit Diagnoses Not on filedocumented in this encounter Care Teams Resolution Rep Relationship Specialty Start Date End Date Julio César Briseno MD PCP - General 10/01/16 Eren Cr MD Referring Physician Medical Oncology 11/25/18 Yohana Bowen MD Radiation Oncologist Radiation Oncology 11/25/18 documented as of this encounter
--- OUTSIDE RECORDS SUMMARY | 2024-06-25 22:34 | XMS_ITS | Encounter Summary ---
Author Organization [facility] Healthcare Address [address] [place] [address] Care Team Providers Care Control Room Technician Name Role Phone Julio César Briseno MD Primary Care Provider [phone] Eren Cr MD Unavailable [phone] Yohana Bowen MD Unavailable Reason for Referral * Diagnostic Imaging (Routine) - Closed Specialty Diagnoses / Procedures Referred By Evelyne bowman Referred To Contact Radiology Diagnoses Neuroendocrine carcinoma (HCC) Procedures IR PICC Line Placement > 5 Years Yohana Bowen MD [address] [employer] # [facility] [address] [place] [address] Phone: tel: fax: [facility] [address] [place] [address] Referral ID Status Reason Start Date Expiration Date Visits Re quested Visits Authorized [id number] Closed 05/27/2019 12/05/2020 1 1 EMIC COMPUTING DIRECTOR Reason for Visit * Diagnostic Imaging (Routine) - Closed Specialty Diagnoses / Procedures Referred By Evelyne bowman Referred To Contact Radiology Diagnoses Neuroendocrine carcinoma (HCC) Procedures IR PICC Line Placement > 5 Years Yohana Bowen MD [address] [facility] # [facility] [address] [place] [address] Phone: tel: fax: [facility] [address] [facility] [place] [address] Referral ID Status Reason Start Date Expiration Date Visits Re quested Visits Authorized [id number] Closed 05/27/2019 12/05/2020 1 1 Encounter Details Date Type Department Care Team (Latest Contact Info) Description 06/09/2019 1:16 PM ACADEMIC COMPUTING DIRECTOR - 06/09/2019 2:56 PM ACADEMIC COMPUTING DIRECTOR Hospital Encounter [facility] Radiology [facility] [address] [facility] [place] [address] Yohana Bowen MD [address] [facility] [address] [place] [address] Neuroendocrine carcinoma (CMS/HCC) Discharge Disposition: Discharge to home or self care Social History Tobacco Use Types Packs/Day Years Used Date Smoking Tobacco: Never Smokeless Tobacco: Never Alcohol Use Standard Drinks/Week Comments Yes 1 (1 standard drink = 0.6 oz pur e alcohol) Comments No Sex and Gender Information Value Date Recorded Sex Assigned at Not on file Legal Sex Female 2:41 PM ACADEMIC COMPUTING DIRECTOR Gender Identity Not on file Sexual Orientation Straight 02/19/2021 9: 29 AM CDT Occupation Industry Job Start Date Job End Date retired Not on file Not on file Not on file documented as of this encounter Last Filed Vital Signs Vital Sign Reading Time Taken Comments Blood Pressure 161/89 06/09/2019 2:46 PM ACADEMIC COMPUTING DIRECTOR Pulse 82 06/09/2019 2:46 PM ACADEMIC COMPUTING DIRECTOR Temperature 36 ??C (96.8 ??F) 06/09/2019 2:46 PM ACADEMIC COMPUTING DIRECTOR Respiratory Rate 14 06/09/2019 2:46 PM ACADEMIC COMPUTING DIRECTOR Oxygen Saturation 97% 06/09/2019 2:35 PM ACADEMIC COMPUTING DIRECTOR Inhaled Oxygen Concentration - - Weight - - Height - - Body Mass Index - - documented in this encounter Discharge Diagnoses Diagnosis Other malignant neuroendocrine tumors (HCC) - OTHER MALIGNANT NEUROENDOCRINE TUMORS Other secondary neuroendocrine tumors (HCC) - OTHER SECONDARY NEUROENDOCRINE TUMORS documented in this encounter Discharge Instructions * Discharge Instructions* Isra Edwards MD - 06/09/2019 2:46 PM ACADEMIC COMPUTING DIRECTOR Interventional Radiology Outpatient Discharge Instructions/Note Diagnosis: Metastatic neuroendocrine tumor Procedure: PICC placement Diet: You may resume your previous diet. Medication: [x] Usual medications; check with your regular doctor for any questions. Do not take any new pain medicine, sleeping pills or sedatives unless approved by your doctor. Procedure Site Care: [x] Keep site clean and dry. [x] You may bathe or shower tomorrow. [x] Change the dressing daily and if it becomes wet or dirty. To contact an Interventional Radiologist at [facility] call [phone] Saturday through Saturday from 7:30am-4:30pm. At all other times call [phone] and ask that the Interventional Radiologist be paged. To contact an Interventional Radiologist at [facility] call [phone] Saturday through Saturday from 7:30am-3:30pm. Special instructions: Please call Interventional Radiology for any procedure related questions or problems including: ?? Extreme swelling or bruising at the site. ?? Unusual drainage or bleeding from procedure site. ?? Fever of 101.5 F for more than 24 hours. ?? Severe procedure related pain. EMIC COMPUTING DIRECTOR documented in this encounter Medications at Time of Discharge simvastatin (ZOCOR) 20 mg tablet Take 1 tablet (20 mg total) by mouth nightly ascorbic acid, vitamin C, 500 mg capsuleIndications :supplement Take 1 tablet by mouth newscast director before breakfast 07/04/2016 4 cholecalciferol (VITAMIN D-3) 2,000 unit capsule Take 1 capsule (2,000 Units total) by mouth daily 30 capsule 2 04/25/2019 3 clotrimazole-betam ethasone (LOTRISONE) cream Apply 1 Application topically daily as needed (rash) 4 coenzyme K60-[id number] E 100-5 mg-unit capsuleIndications :supplement Take 1 tablet by mouth newscast director before breakfast [address] (CYMBALTA) 30 [...] Nursing Notes * Nitin Graves RN - 06/09/2019 2:08 PM CST Pt transferred to table with full assist, placed on monitor, all comfort and safety measures in place. EMIC COMPUTING DIRECTOR documented in this encounter Miscellaneous Notes * Post-Procedure Note - Isra Edwards MD - 06/09/2019 2:42 PM ACADEMIC COMPUTING DIRECTOR Radiology Brief Post Procedure Note Attending: Dr. Nuñez Sports Director: Dr. Edwards Sedation/Anesthesia: Local Pre-Op/Pre-Procedure Diagnosis: Metastatic neuroendocrine tumor Post-Op/Post-Procedure Diagnosis: Same Procedure Performed: PICC placement Procedure Findings: Successful dual lumen PICC placement via left brachial vein Complications: None Estimated Blood Loss: None Specimens: None Condition: Stable Full report to follow. 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 She presents for PICC line placement prior to PRRT therapy. Planned Procedure: PICC placement EMIC COMPUTING DIRECTOR documented in this encounter Plan of Treatment Not on file documented as of this encounter Procedures Procedure Name Priority Date/Time Associated Diagnosis Comments IR PICC LINE PLACEMENT > 5 YEARS Schedule Routine, Read Routine (OP Routine) 06/09/2019 2:40 PM ACADEMIC COMPUTING DIRECTOR Neuroendocrine carcinoma (CMS/HCC) documented in this encounter Results * IR PICC Line Placement > 5 Years (06/09/2019 2:40 PM ACADEMIC COMPUTING DIRECTOR) Anatomical Region Laterality Modality Body N/A Radio Fluoroscop y 06/09/2019 3:20 PM ACADEMIC COMPUTING DIRECTOR Impressions 06/09/2019 3:38 PM ACADEMIC COMPUTING DIRECTOR Successful nontunneled peripherally inserted catheter placement via the left brachial vein. PLAN: The catheter is ready for immediate use. ??When treatment is completed, this catheter can be removed at the bedside according to standard hospital protocol. ?? Dictated by: Isra Edwards M.D. The radiology attending physician has personally reviewed this study, and had reviewed and/or edited this written report and agrees with it. Electronically signed by: Brock Nuñez M.D. Narrative 06/09/2019 3:38 PM ACADEMIC COMPUTING DIRECTOR EXAMINATION: ??NONTUNNELED PERIPHERALLY INSERTED CENTRAL VENOUS CATHETER PLACEMENT (STD) HISTORY: 68-year-old female with a history of metastatic neuroendocrine carcinoma presents for PICC placement prior to treatment. ATTENDING PRESENCE: ??Brock Nuñez M.D., the attending radiologist was present from the beginning to the end of the procedure. ?? SEDATION: The patient did not require conscious sedation for this procedure. TECHNIQUE: ?? The risks, benefits and alternatives were discussed and informed consent was obtained. ??Prior to beginning the procedure, Dawson Protocol was used to confirm the patient's identity and planned procedure. ??Fluoroscopy time has been recorded in the electronic medical record. Maximum sterile barriers including cap, mask, hand hygiene, sterile gloves, sterile gown, large sterile drape and 2% chlorhexidine for cutaneous antisepsis were used. ??The skin over the left brachial vein was sterilely prepped, draped and infiltrated with 1% buffered lidocaine. ?? Prior to the procedure, the target vessel was evaluated by ultrasound, an image of the patent vessel recorded, and this image placed in the patient's chart. ??After sterile prep, this vessel was accessed using realtime ultrasound guidance. A guidewire and catheter were then passed centrally using fluoroscopic guidance. ??The intravascular length from the access site to the right atrium was assessed. ??A dual lumen PICC was inserted over the guidewire. The catheter was flushed with 100U/ml heparin and secured in place. A sterile dressing was applied. ?? ESTIMATED BLOOD LOSS: Minimal. CONDITION: Stable DISCHARGED TO: Recovery and then home. FINDINGS: The final fluoroscopic image demonstrates the catheter with its tip near the cavoatrial junction. ??No complications are seen. Procedure Note Brock Nuñez MD - 06/09/2019 EXAMINATION: NONTUNNELED PERIPHERALLY INSERTED CENTRAL VENOUS CATHETER PLACEMENT (STD) HISTORY: 68-year-old female with a history of metastatic neuroendocrine carcinoma presents for PICC placement prior to treatment. ATTENDING PRESENCE: Brock Nuñez M.D., the attending radiologist was present from the beginning to the end of the procedure. SEDATION: The patient did not require conscious sedation for this procedure. TECHNIQUE: The risks, benefits and alternatives were discussed and informed consent was obtained. Prior to beginning the procedure, Dawson Protocol was used to confirm the patient's identity and planned procedure. Fluoroscopy time has been recorded in the electronic medical record. Maximum sterile barriers including cap, mask, hand hygiene, sterile gloves, sterile gown, large sterile drape and 2% chlorhexidine for cutaneous antisepsis were used. The skin over the left brachial vein was sterilely prepped, draped and [...] site to the right atrium was assessed. A dual lumen PICC was inserted over the guidewire. The catheter was flushed with 100U/ml heparin and secured in place. A sterile dressing was applied. ESTIMATED BLOOD LOSS: Minimal. CONDITION: Stable DISCHARGED TO: Recovery and then home. FINDINGS: The final fluoroscopic image demonstrates the catheter with its tip near the cavoatrial junction. No complications are seen. IMPRESSION: Successful nontunneled peripherally inserted catheter placement via the left brachial vein. PLAN: The catheter is ready for immediate use. When treatment is completed, this catheter can be removed at the bedside according to standard hospital protocol. Dictated by: Isra Edwards M.D. The radiology attending physician has personally reviewed this study, and had reviewed and/or edited this written report and agrees with it. Electronically signed by: Brock Nuñez M.D. us Yohana Bowen MD IMG IR PROCEDURES Final Result documented in this encounter Visit Diagnoses Diagnosis Neuroendocrine carcinoma (HCC) Other malignant neoplasm of unspecified site documented in this encounter Administered Medications Inactive Administered Medications - up to 3 most recent administrations Medication Order MAR Action Action Date Dose Rate Site heparin 100 unit/mL injection Code/trauma/sedation medication, Starting on Sat06/09/19 at 1436, Indications: Maintain Patency of Indwelling Vascular CatheterIndications:Maintain Patency of Indwelling Vascular Catheter Given 06/09/2019 2:36 PM ACADEMIC COMPUTING DIRECTOR 2.5 mL heparin 100 unit/mL injection Code/trauma/sedation medication, Starting on Sat06/09/19 at 1436, Indications: Maintain Patency of Indwelling Vascular CatheterIndications:Maintain Patency of Indwelling Vascular Catheter Given 06/09/2019 2:36 PM ACADEMIC COMPUTING DIRECTOR 2.5 mL lidocaine PF (XYLOCAINE) 10 mg/mL (1 %) preservative free injection Code/trauma/sedation medication, Starting on Sat06/09/19 at 1425, Intra-Procedure (IR), Indications: Administration of Local AnesthesiaIndications:Administr ation of Local Anesthesia Given 06/09/2019 2:25 PM ACADEMIC COMPUTING DIRECTOR 10 mL Left Arm documented in this encounter Active and Recently Administered Medications Times are shown in ACADEMIC COMPUTING DIRECTOR. PRN Medication Order 06/07/2019 06/08/2019 06/09/2019 heparin 100 unit/mL injection (COMPLETED) Code/trauma/sedation medication, Starting on Sat06/09/19 at 1436, Indications: Maintain Patency of Indwelling Vascular Catheter 1436 (Given - Provid er: Isra Edwards MD) heparin 100 unit/mL injection (COMPLETED) Code/trauma/sedation medication, Starting on Sat06/09/19 at 1436, Indications: Maintain Patency of Indwelling Vascular Catheter 1436 (Given - Provid er: Isra Edwards MD) lidocaine PF (XYLOCAINE) 10 mg/mL (1 %) preservative free injection (COMPLETED) Code/trauma/sedation medication, Starting on Sat06/09/19 at 1425, Intra-Procedure (IR), Indications: Administration of Local Anesthesia 1425 (Given - Provid er: Isra Edwards MD) documented in this encounter Care Teams Control Room Technician Relationship Specialty Start Date End Date Julio César Briseno MD PCP - General 10/01/16 Eren Cr MD Referring Physician Medical Oncology 11/25/18 Yohana Bowen MD Radiation Oncologist Radiation Oncology 11/25/18 documented as of this encounter
--- OUTSIDE RECORDS SUMMARY | 2024-06-25 22:34 | XMS_ITS | Encounter Summary ---
Author Organization [facility] Home Care Serv[facility] es Address [address] [place] [address] Phone Care Team Providers Care Care Management Assistant Name Role Phone Julio César Briseno MD Primary Care Provider [phone] Eren Cr MD Unavailable [phone] Yohana Bowen MD Unavailable Reason for Visit * Auth/Cert Specialty Diagnoses / Procedures Referred By Evelyne t Referred To Contact Referral ID Status Reason Start Date Expiration Date Visits Re quested Visits Authorized [id number] 1 1 Encounter Details Date Type Department Care Team (Late st Contact Info) Description 05/15/2019 1:00 PM PT [facility] Home Care Visit [facility] [address] [place] [address] [address] [place] [address] Misa Barrow RN SN HOME VISIT Social History Tobacco Use Types Packs/Day Years Used Date Smoking Tobacco: Never Smokeless Tobacco: Never Alcohol Use Standard Drinks/Week Comments Yes 1 (1 standard drink = 0.6 oz pur e alcohol) Comments No Sex and Gender Information Value Date Recorded Sex Assigned at Not on file Legal Sex Female 2:41 PM PT ESCORT Gender Identity Not on file Sexual Orientation Straight 02/19/2021 9: 29 AM CDT Occupation Industry Job Start Date Job End Date retired Not on file Not on file Not on file documented as of this encounter Last Filed Vital Signs Vital Sign Reading Time Taken Comments Blood Pressure 120/62 05/15/2019 10:15 AM PT [facility]ORT Pulse 86 05/15/2019 10:15 AM PT [facility]ORT Temperature 36.4 ??C (97.5 ??F) 05/15/2019 10:[address] Respiratory Rate 18 05/15/2019 10:15 AM PT [facility] Oxygen Saturation 98% 05/15/2019 10:15 AM PT [facility]ORT Inhaled Oxygen Concentration - - Weight - [...] Date Status Goals Interventions Homebound Status Disciplines: Group Home, Occupational Therapy Patient's homebound status 9 Active 1 goal linked to scheduled/docume nted intervention 1 goal intervention scheduled/documen omar in this visit Monitor patient's vital signs every home health visit Disciplines: Group Home, Occupational Therapy Monitor patient's vital signs every home health visit. 9 Active 1 goal linked to scheduled/docume nted intervention 1 goal intervention scheduled/documen omar in this visit Risk for imbalanced nutrition Disciplines: Group Home less then body requirements: nutritional intake insufficient to meet metabolic needs related to Colostomy 9 Active 1 goal linked to scheduled/docume nted intervention 1 goal intervention scheduled/documen omar in this visit Risk for deficient fluid volume Disciplines: Group Home At risk for decreased fluid related to Colostomy 9 Active 1 goal linked to scheduled/docume nted intervention 1 goal intervention scheduled/documen omar in this visit Coping with disturbed body image Disciplines: Group Home change in mental picture related to Colostomy 9 Active 1 goal linked to scheduled/docume nted intervention 1 goal intervention scheduled/documen omar in this visit Knowledge Deficit - Ostomy Disciplines: Group Home 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 9 Active 1 goal linked to scheduled/docume nted intervention 3 goal interventions scheduled/documen omar in this visit Wound Risk of Infection Disciplines: Group Home Risk of infections related to wounds 9 Active 1 goal linked to scheduled/docume nted intervention 1 goal intervention scheduled/documen omar in this visit Wound Education and Management Disciplines: Group Home Deficiency of cognitive information related to wound care 9 Active 1 goal linked to scheduled/docume nted intervention 1 goal intervention scheduled/naomi nelson in this visit Wound Care Disciplines: Group Home Wound care needed 05/15/2019 Active 1 goal linked to scheduled/docume nted intervention 1 goal intervention scheduled/naomi nelson in this visit Goals Goal Associated Problem Outcome Goal Met? Visit Notes Patient recieves care at the most appropriate care setting Description: Patient receives care at the most appropriate care setting. Homebound Status No Measure vital signs during every home health visit during episode of care Description: Home tester wafer substrate to measure vital signs during every home health visit during episode of care. Monitor patient's vital signs every home health visit No Maintain Nutrtion Description: Maintain weight and plan diet that will meet nutritional needs and limit GI disturbances. Risk for imbalanced nutrition No Maintain Hydration Description: Maintain adequate hydration [...] first visit Wound Risk of Infection No Knowledgeable on Woundcare Description: Patient/caregiver will be knowledgeable on woundcare procedure, wound healing and when to seek medical attention by 2nd visit Wound Education and Management No Progression towards healing Description: Wound show [...] needs assistance with all ADLS and IADLS 05/15/19 Monitor Vital Signs Description: Monitor blood pressure, pulse, oxygen saturation, respirations Problem:Monitor patient's vital signs every home health visit Goal:Measure vital signs during every home health visit during episode of care Completed Educate on Nutrition Description: Instruct on diet per Information About You Ostomy Booklet Problem:Risk for imbalanced nutrition Goal:Maintain Nutrtion Completed Instruct on diet per Information About You Ostomy Booklet patient states understanding Assess for dehydration Description: Assess vital signs, skin turgor capillary refill and mucous membranes Problem:Risk for deficient fluid volume Goal:Maintain Hydration Completed Assess of Ostomy Healing Description: Instruct on areas of healing and what a normal stoma appearance is. Problem:Coping with disturbed body image Goal:Acceptance of Ostomy Completed Educate on traveling with ostomy Description: Instruct on packing a bag with backup supplies when leaving the home and travel. Problem:Knowledge Deficit - Ostomy Goal:Verbalize understanding of Ostomy Completed Instruct on packing a bag with backup supplies when leaving the home and travel. patient states understanding Educate on emptying of pouch Description: Instruct patient/caregiver to return demo of when/how to empty pouch including nighttime drainage. Problem:Knowledge Deficit - Ostomy Goal:Verbalize understanding of Ostomy Completed Patient demonstrated corrct empty process without cueing Oral intake for Ostomy Description: Instruct on diet and fluid intake per Information About Your Ostomy Booklet Problem:Knowledge Deficit - Ostomy Goal:Verbalize understanding of Ostomy Completed Instruct on diet and fluid intake per Information About Your Ostomy Booklet patient states understanding Instruct on the signs and symptoms of infection Description: Assess wound with each visit for s/sx of infection Problem:Wound Risk of Infection Goal:Knowledgeable of infection Completed Assess wound with each visit for s/sx of infection instructed patient with her stating understanding Hydration for Wound Healing Description: Instruct on adequate hydration for wound healing, generally 6.5-8 cups (52-64oz/day). Unless health professional has suggested a fluid restriction Problem:Wound Education and Management Goal:Knowledgeable on Woundcare Completed Instruct on adequate hydration for wound healing, generally 6.5-8 cups (52-64oz/day). patient states understanding Perform dressing change Description: Perform dressing [...] Cifuentes Problem:Wound Care Goal:Progression towards healing Completed Perform dressing change: Site abdominl wound, Skilled Nurse and Caregiver to perform dressing change as of 05/15/19, Frequency daily and PRN for excess drainage or dislodgement of dressing. Wound care as follows: cleanse with wound cleanser , pack with normal saline damp gauze, cover with dry gauze and secure with medipore tape. documented in this encounter Home Health Visit - Actions and Narratives Actions #[id number], 1 tube of stoma p aste Patient richy stoma area is sore and very red, called message sent to Mj Arce that recommends that patient try the stoma paste for healing of richy stoma area. Patient saw her MD yesterday and he removed the wound vac and told patient to pack the wound with NS damp gauze. documented in this encounter Care Teams Care Management Assistant Relationship Specialty Start Date End Date Julio César Briseno MD PCP - General 10/01/16 Eren Cr MD Referring Physician Medical Oncology 11/25/18 Yohana Bowen MD Radiation Oncologist Radiation Oncology 11/25/18 documented as of this encounter
--- OUTSIDE RECORDS SUMMARY | 2024-06-25 22:34 | XMS_ITS | Encounter Summary ---
Author Organization [facility] Address [address] [place] [address] Phone Care Team Providers Care Room Service Runner Name Role Phone Julio César Briseno MD Primary Care Provider Eren Cr MD Unavailable [phone] Yohana Bowen MD Unavailable Encounter Details Date Type Department Care Team (Late st Contact Info) Description 05/13/2019 Orders Only [facility] Oncology [address] [facility] Advanced Medicine 7th [place] [address] [place] [address] Mayela Williamson RN Neuro-endocrine carcinoma (CMS/HCC) (Primary Dx) Social History Tobacco Use Types Packs/Day Years Used Date Smoking Tobacco: Never Smokeless Tobacco: Never Alcohol Use Standard Drinks/Week Comments Yes 1 (1 standard drink = 0.6 oz pur e alcohol) Comments No Sex and Gender Information Value Date Recorded Sex Assigned at Not on file Legal Sex Female 2:41 PM SUPERVISOR AREA Gender Identity Not on file Sexual Orientation Straight 02/19/2021 9: 29 AM CDT Occupation Industry Job Start Date Job End Date retired Not on file Not on file Not on file documented as of this encounter Plan of Treatment Not on file documented as of this encounter Results * (ABNORMAL) Chromogranin A (06/01/2019 10:46 AM SUPERVISOR AREA) Chromogranin A 376(H) <93 ng/mL [facility] Comment: Impaired renal or hepatic function or treatment with proton pump inhibitors may result in artifactual elevations of Chromogranin A. ADDITIONAL INFORMATION This test was developed and its performance characteristics determined by [facility] in a manner consistent with CLIA requirements. [...] absence of malignant disease. Test Performed by: [place] [address] Coat Examiner: Immanuel Novak M.D. Ph.D.; CLIA# [id number] Blood specimen (specimen) 06/01/2019 10:46 AM SUPERVISOR AREA 06/01/2019 11:30 AM SUPERVISOR AREA Eren Cr MD LAB BLOOD ORDERABLES Final Re sult [facility] Department [place] [address] * (ABNORMAL) Comprehensive metabolic panel (06/01/2019 10:46 AM SUPERVISOR AREA) Pathologist [facility] Sodium 142 135 - 145 mmol/L [facility] Potassium, pl 4.3 3.3 - 4.9 mmol/L [facility] Chloride 109 97 - 110 mmol/L [facility] CO2 28 22 - 32 mmol/L [facility] Anion gap 6 2 - 15 mmol/L [facility] BUN 11 8 - 25 mg/dL [facility] Creatinine 0.81 0.60 - 1.10 mg/dL [facility] Glucose 123 70 - 199 mg/dL [facility] mg/dL [facility] Bilirubin, total 0.4 0.1 - 1.2 mg/dL [facility] Protein, pl 6.7 6.5 - 8.5 g/dL [facility] Albumin 4.0 3.5 - 5.0 g/dL [facility] Alk phos 78 40 - 130 Units/L [facility] ALT 14 7 - 45 Units/L [facility] AST 19 10 - 45 Units/L [facility] Blood specimen (specimen) 06/01/2019 10:46 AM SUPERVISOR AREA 06/01/2019 10:55 AM SUPERVISOR AREA us Eren Cr MD LAB BLOOD ORDERABLES [facility] Department [place] [address] * (ABNORMAL) CBC with auto differential (06/01/2019 10:45 AM SUPERVISOR AREA) WBC 4.3 3.8 - 9.8 K/cumm [facility] Comment:Testing performed by : [facility] [id number] Hgb 12.2 12.1 - 15.1 g/dL [facility] Comment:Testing performed by : [facility] [phone] Hct 36.3 36.1 - 44.3 % [facility] Comment:Testing performed by : [facility] [address] Plt 132(L) 140 - 440 K/cumm [facility] Comment:Testing performed by : [facility], [address] [place] [phone] MPV 7.7 6.8 - 10.4 fL [facility] Comment:Testing performed by : [place] [address] RBC 4.01 3.90 - 5.00 M/cumm [facility] Comment:Testing performed by : [facility], [address] [place], [place] [phone] MCV 90.6 80.0 - 97.6 fL [facility] Comment:Testing performed by : [place] [id number] MCH 30.5 26.7 - 33.7 pg [facility] Comment:Testing performed by : [place] [id number] MCHC 33.7 32.7 - 35.5 g/dL [facility] Comment:Testing performed by : [facility], [address] [place], [place] [phone] RDW CV 15.8(H) 11.8 - 14.6 % [facility] Comment:Testing performed by : [facility], [address] [place] [phone] NRBC abs 0.00 0.00 - 0.01 K/cumm [facility] Comment:Testing performed by : [place] [phone] Blood specimen (specimen) 06/01/2019 10:45 AM SUPERVISOR AREA 06/01/2019 10:49 AM SUPERVISOR AREA us Eren Cr MD LAB BLOOD ORDERABLES Final Re sult [facility] Department [place] [address] documented in this encounter Visit Diagnoses Diagnosis Neuro-endocrine carcinoma (HCC)- Primary Other malignant neoplasm of unspecified site documented in this encounter Care Teams Room Service Runner Relationship Specialty Start Date End Date Julio César Briseno MD PCP - General 10/01/16 Eren Cr MD Referring Physician Medical Oncology 11/25/18 Yohana Bowen MD Radiation Oncologist Radiation Oncology 11/25/18 documented as of this encounter
--- OUTSIDE RECORDS SUMMARY | 2024-06-25 22:34 | XMS_ITS | Encounter Summary ---
Author Organization [facility] Address [address] [place] [address] Phone Care Team Providers Care Poultry Pinner Name Role Phone Julio César Briseno MD Primary Care Provider Eren Cr MD Unavailable [phone] Yohana Bowen MD Unavailable Encounter Details Date Type Department Care Team (Late st Contact Info) Description 05/28/2019 Orders Only [facility] Oncology [address] [facility] [address] 7th [place] [address] [place] [address] Jeevan Martino, [place] [address] [place], [place] [id number] Social History Tobacco Use Types Packs/Day Years Used Date Smoking Tobacco: Never Smokeless Tobacco: Never Alcohol Use Standard Drinks/Week Comments Yes 1 (1 standard drink = 0.6 oz pur e alcohol) Comments No Sex and Gender Information Value Date Recorded Sex Assigned at Not on file Legal Sex Female 2:41 PM GOLF CART ASSEMBLER Gender Identity Not on file Sexual Orientation Straight 02/19/2021 9: 29 AM CDT Occupation Industry Job Start Date Job End Date retired Not on file Not on file Not on file documented as of this encounter Plan of Treatment Not on file documented as of this encounter Visit Diagnoses Not on filedocumented in this encounter Care Teams Poultry Pinner Relationship Specialty Start Date End Date Julio César Briseno MD PCP - General 10/01/16 Eren Cr MD Referring Physician Medical Oncology 11/25/18 Yohana Bowen MD Radiation Oncologist Radiation Oncology 11/25/18 documented as of this encounter
--- OUTSIDE RECORDS SUMMARY | 2024-06-25 22:34 | XMS_ITS | Encounter Summary ---
Author Organization [facility] Address [address] [place] [address] Care Team Providers Care Garage Laborer Name Role Phone Julio César Briseno MD Primary Care Provider [phone] Eren Cr MD Unavailable Yohana Bowen MD Unavailable Encounter Details Date Type Department Care Team (Late st Contact Info) Description 06/10/2019 7:00 AM LIBRARY CONSULTANT Office Visit [facility] Radiation Oncology [address] [place] [address] Advanced Medicine [facility] [place] [address] Yohana Bowen MD [address] [place] [address] [address] [place] [address] [place] [address] [place], [place] [id number] [place] [address] Neuroendocrine carcinoma (CMS/HCC) Social History Tobacco Use Types Packs/Day Years Used Date Smoking Tobacco: Never Smokeless Tobacco: Never Alcohol Use Standard Drinks/Week Comments Yes 1 (1 standard drink = 0.6 oz pur e alcohol) Comments No Sex and Gender Information Value Date Recorded Sex Assigned at Not on file Legal Sex Female 2:41 PM LIBRARY CONSULTANT Gender Identity Not on file Sexual Orientation Straight 02/19/2021 9: 29 AM CDT Occupation Industry Job Start Date Job End Date retired Not on file Not on file Not on file documented as of this encounter Last Filed Vital Signs Vital Sign Reading Time Taken Comments Blood Pressure 120/57 06/10/2019 12:40 PM LIBRARY CONSULTANT Pulse 78 06/10/2019 12:40 PM LIBRARY CONSULTANT Temperature - - Respiratory Rate - - Oxygen Saturation 100% 06/10/2019 12:40 PM LIBRARY CONSULTANT Inhaled Oxygen Concentration - - Weight 77.2 kg (170 lb 4.8 oz) 06/10/2019 7:16 A M LIBRARY CONSULTANT Height - - Body Mass Index 30.17 05/14/2019 2:48 PM LIBRARY CONSULTANT documented in this encounter Progress Notes * Meagan Amaya MD - 06/10/2019 7:00 AM CST IIDENTIFYING DATA: 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 The patient began 1.25% L-Arginine and 1.25% L-Lysine saline infusion at 500 mls/hr for a total of 30 minutes. After the dosimeter recorded the patient???s initial exposure rate, Lutetium-177 DOTATATE was administered, initially at 50 mLs/hr, and after 5 minutes, at which point it was clear that the patient was tolerating treatment, the infusion rate was increased to 300 mLs/hr. The exposure rate of the Jody-177 DOTATATE vial was assayed every 5 minutes until the dosimeter plateaued for 3 consecutive readings. After this, the patient received the remainder of amino acid infusion, to complete a total of 2 L ofthis product. At the end of infusion of all products, 4 hours after initiation of amino acid infusion, the patient's exposure rate was recorded and they were deemed safe for discharge. The patient???s PICC line was pulled in usual fashion without incident, and all biohazard and radioactive waste was disposed of appropriately. The patient was observed for 1 hour after treatment. A total activity of 201.7 mCi, representing 99.2% of a prescribed 203.4 mCi, was delivered. PROCEDURE FINDINGS: N/A SPECIMENS REMOVED: N/A ESTIMATED BLOOD LOSS: None DISPOSITION: Patient will receive post-treatment octreotide/SSA injection within 4-24 hours of completing this therapy. 1 month injection will be at the discretion of medical oncology and patient. Patient will return for treatment #4 of 4 in 2 months. Patient is cleared and safe to [...] can be properly communicated to treatment teams. ARY CONSULTANT * Huy Landis RN - 06/10/2019 7:00 AM CST Pt admitted to Brachytherapy for Jody-177 #3. Identified by name, , and photo. Explained procedureto pt and pt verbalized understanding. VSS. Pt remains on study. Left arm double lumen PICC line flushes without resistance and positive blood return present. Labs collected for study. Amino Acids started at 500ml/hr @0730. Therapist administered Jody-[address] Amaya present. Pt completed Jody-177 administration w/o incident. Dose line removed with proper PPE and port capped with therapist assistance. Amino Acids continued to infuse at titrated rate. Pt completed Amino Acids administration w/o incident @1200. VSS. PICC line removed by Dr. Amaya. Discharge instructions explained to pt and packet provided. Pt verbalized understanding. Vital signs remained stable post-PICC line removal. Ptambulatory from department. ?? Cosigned by Meagan Amaya MD at 06/10/2019 6:56 PM LIBRARY CONSULTANT ARY CONSULTANT ARY CONSULTANT documented in this encounter Plan of Treatment Not on file documented as of this encounter Procedures Procedure Name Priority Date/Time Associated Diagnosis Comments DIFFERENTIAL AUTO Routine 06/10/2019 7:3 2 AM LIBRARY CONSULTANT Neuroendocrine carcinoma (CMS/HCC) IMMUNE DEFICIENCY PROFILE Routine 06/10/2019 7:32 AM LIBRARY CONSULTANT Neuroendocrine carcinoma (CMS/HCC) CBC WITH AUTO DIFFERENTIAL Routine 06/10/2019 7:32 AM LIBRARY CONSULTANT Neuroendocrine carcinoma (CMS/HCC) documented in this encounter Results * (ABNORMAL) Differential, auto (06/10/2019 7:32 AM LIBRARY CONSULTANT) Neutrophil abs 3.3 1.7 - 6.5 K/cumm [facility] Imm gran abs 0.0 0.0 - 0.1 K/cumm [facility] Lymphocyte abs 0.3(L) 0.8 - 3.3 K/cumm [facility] Monocyte abs 0.7 0.2 - 0.8 K/cumm [facility] Eosinophil abs 0.1 0.0 - 0.5 K/cumm [facility] Basophil abs 0.0 0.0 - 0.1 K/cumm [facility] Neutrophil pct 73.3 % [facility] Comment: Interpretive Data Percent cell count reference ranges are not reported, since discordance with absolute values may lead to misinterpretation of CBC data. Current Interpretive Data was last revised on 2017. Imm gran pct 0.4 % [facility] Comment: Interpretive Data Percent cell count reference ranges are not reported, since discordance with absolute values may lead to misinterpretation of CBC data. Current Interpretive Data was last revised on 2017. Lymphocyte pct 7.5 % [facility] Comment: Interpretive Data Percent cell count reference ranges are not reported, since discordance with absolute values may lead to misinterpretation of CBC data. Current Interpretive Data was last revised on 2017. Monocyte pct 15.2 % [facility] Comment: Interpretive Data Percent cell count reference ranges are not reported, since discordance with absolute values may lead to misinterpretation of CBC data. Current Interpretive Data was last revised on 2017. Eosinophil pct 2.9 % [facility] Comment: Interpretive Data Percent cell count reference ranges are not reported, since discordance with absolute values may lead to misinterpretation of CBC data. Current Interpretive Data was last revised on 2017. Basophil pct 0.7 % [facility] Comment: Interpretive Data Percent cell count reference ranges are not reported, since discordance with absolute values may lead to misinterpretation of CBC data. Current Interpretive Data was last revised on 2017. Blood specimen (specimen) 06/10/2019 7:32 AM LIBRARY CONSULTANT 06/10/2019 7:57 AM LIBRARY CONSULTANT us Yohana Bowen MD LAB BLOOD ORDERABLES Final Resul t [facility] [place] [address] * (ABNORMAL) CBC with auto differential (06/10/2019 7:32 AM LIBRARY CONSULTANT) WBC 4.5 3.8 - 9.9 K/cumm [facility] Hgb 11.7(L) 11.9 - 15.5 g/dL [facility] Hct 35.4(L) 35.6 - 45.5 % [facility] Plt 124(L) 150 - 400 K/cumm [facility] MPV 10.8 9.1 - 12.3 fL [facility] RBC 3.93 3.90 - 5.20 M/cumm [facility] MCV 90.1 81.3 - 96.4 fL [facility] MCH 29.8 27.1 - 33.3 pg [facility] MCHC 33.1 32.3 - 35.7 g/dL [facility] RDW CV 14.1 11.1 - 14.9 % [facility] RDW SD 46.6 35.7 - 48.1 fL [facility] NRBC abs 0.00 0.00 - 0.01 K/cumm [facility] Blood specimen (specimen) 06/10/2019 7:32 AM LIBRARY CONSULTANT 06/10/2019 7:57 AM LIBRARY CONSULTANT us Yohana Bowen MD LAB BLOOD ORDERABLES Final Resul t Performing Organization Address [facility] Co [place] [address] * (ABNORMAL) Immune deficiency profile (06/10/2019 7:32 AM LIBRARY CONSULTANT) Pathologist [facility] CD4 pct 44 31 - 64 % [facility] CD4 Absolute 164(L) 365 - 1,294 cells/mcL [facility] CD8 pct 29 12 - 40 % [facility] CD8 Absolute 110(L) 187 - 781 cells/mcL [facility] CD4/CD8 ratio 1.5 0.9 - 4.4 [facility] Blood specimen (specimen) 06/10/2019 7:32 AM LIBRARY CONSULTANT 06/10/2019 7:41 AM LIBRARY CONSULTANT us Yohana Bowen MD LAB BLOOD ORDERABLES Final Resul t Performing Organization Address [facility] [place] [address] documented in this encounter Visit Diagnoses Diagnosis Neuroendocrine carcinoma (HCC) Other malignant neoplasm of unspecified site documented in this encounter Administered Medications Inactive Administered Medications - up to 3 most recent administrations Medication Order MAR Action Action Date Dose Rate Site L-arginine 1.25%/L-lysine 1.25% infusion 1,000 mL 1,000 mL, intravenous, Continuous, Starting on Sat06/10/19 at 0730, x2 bags initiate at least 30 minutes prior to giving lutetium Jody 177 dotatate (LUTATHERA) infusion. Continue during and 3 hours after LUTATHERA infusion.Indications:Neuroe ndocrine carcinoma (HCC) New Bag 06/10/2019 9:35 AM LIBRARY CONSULTANT 1,000 mL 475 mL /hr New Bag 06/10/2019 7:30 AM LIBRARY CONSULTANT 1,000 mL 500 mL/hr sodium chloride 0.9% infusion 50 mL/hr, intravenous, Continuous, Starting on Sat06/10/19 at 0800Indications:Neuroendocrine carcinoma (HCC) New Bag 06/10/2019 8:19 AM LIBRARY CONSULTANT 50 mL/hr 50 mL/hr documented in this encounter Care Teams Garage Laborer Relationship Specialty Start Date End Date uJlio César Briseno MD PCP - General 10/01/16 Eren Cr MD Referring Physician Medical Oncology 11/25/18 Yohana Bowen MD Radiation Oncologist Radiation Oncology 11/25/18 documented as of this encounter
--- OUTSIDE RECORDS SUMMARY | 2024-06-25 22:34 | XMS_ITS | Encounter Summary ---
Author Organization [facility] Home Care Servic es Address [address] [place] [address] Phone Care Team Providers Care Trouble Dispatcher Name Role Phone Julio César Briseno MD Primary Care Provider [phone] Eren Cr MD Unavailable [phone] Yohana Bowen MD Unavailable Reason for Visit * Auth/Cert Specialty Diagnoses / Procedures Referred By Evelyne t Referred To Contact Referral ID Status Reason Start Date Expiration Date Visits Re quested Visits Authorized [id number] 1 1 Encounter Details Date Type Department Care Team (Late st Contact Info) Description 05/27/2019 1:00 PM VENEER JOINTER Home Care Visit [facility] [address] [address] [address] [place] [address] Misa Barrow RN SN HOME VISIT Social History Tobacco Use Types Packs/Day Years Used Date Smoking Tobacco: Never Smokeless Tobacco: Never Alcohol Use Standard Drinks/Week Comments Yes 1 (1 standard drink = 0.6 oz pur e alcohol) Comments No Sex and Gender Information Value Date Recorded Sex Assigned at Not on file Legal Sex Female 2:41 PM VENEER JOINTER Gender Identity Not on file Sexual Orientation Straight 02/19/2021 9: 29 AM CDT Occupation Industry Job Start Date Job End Date retired Not on file Not on file Not on file documented as of this encounter Last Filed Vital Signs Vital Sign Reading Time Taken Comments Blood Pressure 120/62 05/27/2019 3:04 PM VENEER JOINTER Pulse 94 05/27/2019 3:04 PM VENEER JOINTER Temperature 37.1 ??C (98.8 ??F) 05/27/2019 3:04 PM CS T Respiratory Rate 18 05/27/2019 3:04 PM VENEER JOINTER Oxygen Saturation 96% 05/27/2019 3:04 PM VENEER JOINTER Inhaled Oxygen Concentration - - Weight - - Height - - Body Mass Index - - documented in this encounter Plan of Treatment Not on file documented as of this encounter Visit Diagnoses Not on filedocumented in this encounter Home Health Visit - Care Plan Visit Details Visit Type -SN Home Visit Discipline -Fdc Problems Problem Description Start Date Status Goals Interve ntions Homebound Status Disciplines: Fdc, Occupational Therapy Patient's homebound status 04/26/2019 Active 1 goal linked to scheduled/docume nted intervention 1 goal intervention scheduled/documen omar in this visit Monitor patient's vital signs every home health visit Disciplines: Fdc, Occupational Therapy Monitor patient's vital signs every home health visit. 04/26/2019 Active 1 goal linked to scheduled/docume nted intervention 1 goal intervention scheduled/documen omar in this visit [place] Precautions Disciplines: Fdc, Occupational Therapy [place] Precautions 04/26/2019 Active 1 goal linked to scheduled/docume nted intervention 1 goal intervention scheduled/documen omar in this visit Risk for deficient fluid volume Disciplines: Fdc At risk for decreased fluid related to Colostomy 04/26/2019 Active 1 goal linked to scheduled/docume nted intervention 1 goal intervention scheduled/documen omar in this visit Coping with disturbed body image Disciplines: Fdc change in mental picture related to Colostomy 04/26/2019 Active 1 goal linked to scheduled/docume nted intervention 1 goal intervention scheduled/documen omar in this visit Knowledge Deficit - Ostomy Disciplines: Fdc 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 04/26/2019 Active 1 goal linked to scheduled/docume nted intervention 1 goal intervention scheduled/documen omar in this visit Wound Risk of Infection Disciplines: Fdc Risk of infections related to wounds 04/26/2019 Active 1 goal linked to scheduled/docume nted intervention 1 goal intervention scheduled/documen omar in this visit Wound Education and Management Disciplines: Fdc Deficiency of cognitive information related to wound care 04/26/2019 Active 1 goal linked to scheduled/docume nted intervention 1 goal intervention scheduled/docloi nelson in this visit Wound Care Disciplines: Fdc Wound care needed 05/15/2019 Active 1 goal [...] visit during episode of care Description: Home flagsetter to measure vital signs during every home health visit during episode of care. Monitor patient's vital signs every home health visit No Demonstrate knowledge of universal precautions Description: Demonstrate knowledge of universal precautions [place] Precautions No Maintain Hydration Description: Maintain adequate [...] needs assistance with all ADLS and IADLS patient states understanding Monitor Vital Signs Description: Monitor blood pressure, pulse, oxygen saturation, respirations Problem:Monitor patient's vital signs every home health visit Goal:Measure vital signs during every home health visit during episode of care Scheduled Aspects of Care Description: Instruct patient/caregiver on universal precautions and home infection control measures Problem:[place] Precautions Goal:Demonstrate knowledge of universal precautions Completed Educate to prevent dehydration Description: Instruct per Information About Your Ostomy Booklet Problem:Risk for deficient fluid volume Goal:Maintain Hydration Completed Instruct per Information About Your Ostomy Booklet patient reviewed and states understanding Instruct on self care for appliance change Description: When instructing on care of stoma provide time for patient to touch stoma and encourange patient to do self-care Problem:Coping with disturbed body image Goal:Acceptance of Ostomy Completed When instructing on care of stoma provide time for patient to touch stoma and encourange patient to do self-care, patient did self bag change this day with cueing during the change. Educate on ostomy appliance weartime issues Description: Consult CWON if leakage problems Problem:Knowledge Deficit - Ostomy Goal:Verbalize understanding of Ostomy Completed Instruct Hand Washing Description: Instruct patient/caregiver on hand wash technique Problem:Wound Risk of Infection Goal:Knowledgeable of infection Completed Instruct patient/caregiver on hand wash technique patient states and demonstrates understanding Hydration for Wound Healing Description: Instruct [...] Visit - Actions and Narratives Actions Patient did own ostomy matt e this day with instruction and cueing during the change documented in this encounter Care Teams Trouble Dispatcher Relationship Specialty Start Date End Date Julio César Briseno MD PCP - General 10/01/16 Eren Cr MD Referring Physician Medical Oncology 11/25/18 Yohana Bowen MD Radiation Oncologist Radiation Oncology 11/25/18 documented as of this encounter
--- OUTSIDE RECORDS SUMMARY | 2024-06-25 22:34 | XMS_ITS | Encounter Summary ---
Author Organization [facility] Care Team Providers Care Saw Filer Name Role Phone Julio César Briseno MD Primary Care Provider [phone] Eren Cr MD Unavailable [phone] Yohana Bowen MD Unavailable Encounter Details Date Type Department Care Team (Latest Contact Info) Description 04/27/2019 Travel Social History Tobacco Use Types Packs/Day Years Used Date Smoking Tobacco: Never Smokeless Tobacco: Never Alcohol Use Standard Drinks/Week Comments Yes 1 (1 standard drink = 0.6 oz pur e alcohol) Comments No Sex and Gender Information Value Date Recorded Sex Assigned at Not on file Legal Sex Female 2: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 [employer] Gender Identity Not on file Sexual Orientation Straight 02/19/2021 9: 29 AM CDT Occupation Industry Job Start Date Job End Date retired Not on file Not on file Not on file documented as of this encounter Plan of Treatment Not on file documented as of this encounter Visit Diagnoses Not on filedocumented in this encounter Care Teams Saw Filer Relationship Specialty Start Date End Date Julio César Briseno MD PCP - General 10/01/16 Eren Cr MD Referring Physician Medical Oncology 11/25/18 Yohana Bowen MD Radiation Oncologist Radiation Oncology 11/25/18 documented as of this encounter
--- OUTSIDE RECORDS SUMMARY | 2024-06-25 22:34 | XMS_ITS | Encounter Summary ---
Author Organization [facility] Home Care [facility] es Address [address] [place] [address] Phone Care Team Providers Care Absorber Operator Name Role Phone Julio César Briseno MD Primary Care Provider [phone] Eren Cr MD Unavailable [phone] Yohana Bowen MD Unavailable Reason for Visit * Auth/Cert Specialty Diagnoses / Procedures Referred By Evelyne t Referred To Contact Referral ID Status Reason Start Date Expiration Date Visits Re quested Visits Authorized [id number] 1 1 Encounter Details Date Type Department Care Team (Late st Contact Info) Description 05/13/2019 12:00 PM FOREIGN EXCHANGE DEALER Home Care Visit [facility] [address] [address] [address] [place] [address] Babs Rose LPN SN HOME VISIT Social History Tobacco Use Types Packs/Day Years Used Date Smoking Tobacco: Never Smokeless Tobacco: Never Alcohol Use Standard Drinks/Week Comments Yes 1 (1 standard drink = 0.6 oz pur e alcohol) Comments No Sex and Gender Information Value Date Recorded Sex Assigned at Not on file Legal Sex Female 2:41 PM FOREIGN EXCHANGE DEALER Gender Identity Not on file Sexual Orientation [...] Sign Reading Time Taken Comments Blood Pressure 124/78 05/13/2019 12:49 PM FOREIGN EXCHANGE DEALER Pulse 84 05/13/2019 12:49 PM FOREIGN EXCHANGE DEALER Temperature 36.8 ??C (98.2 ??F) 05/13/2019 12:[address] Respiratory Rate 18 05/13/2019 12:49 PM FOREIGN EXCHANGE DEALER Oxygen Saturation 99% 05/13/2019 12:49 PM FOREIGN EXCHANGE DEALER Inhaled Oxygen Concentration - - Weight - [...] omar in this visit Wound Care Disciplines: Fdc Wound care needed 05/06/2019 Active 1 goal linked to scheduled/docume nted intervention 1 goal intervention scheduled/docloi nelson in this visit Goals Goal Associated Problem Outcome Goal Met? Visit Notes Patient recieves care at the most appropriate care setting Description: Patient receives care at the most appropriate care setting. Homebound Status No Measure vital signs during every home health visit during episode of care Description: Home carpet loom fixer to measure vital signs during every home health visit during episode of care. Monitor patient's vital signs every home health visit No Acceptance of Ostomy Description: Patient will [...] Description: Wound show progression towards healing by 05/15/19 Wound Care No Interventions Intervention Associated Problem/Goal [...] needs assistance with all ADLS and IADLS Monitor Vital Signs Description: Monitor blood pressure, pulse, oxygen saturation, respirations Problem:Monitor patient's vital signs every home health visit Goal:Measure vital signs during every home health visit during episode of care Scheduled Instruct on self care for appliance change Description: When instructing on care of stoma provide time for patient to touch stoma and encourange patient to do self-care Problem:Coping with disturbed body image Goal:Acceptance of Ostomy Completed sn instructed patient/cg on appliance care and changing both verbalized understanding Educate on traveling with ostomy Description: Instruct on packing a bag with backup supplies when leaving the home and travel. Problem:Knowledge Deficit - Ostomy Goal:Verbalize understanding of Ostomy Completed sn instructed patient cg on travel and ostomy supplies cg prepared bag during snv for travel and demonstrated understanding Educate on emptying of pouch Description: Instruct patient/caregiver to return demo of when/how to empty pouch including nighttime drainage. Problem:Knowledge Deficit - Ostomy Goal:Verbalize understanding of Ostomy Completed sn instructed patient/cg on emptyling pouch and nightime drainage both verbalized understanding. Instruct on the signs and symptoms of infection Description: Assess wound with each visit for s/sx of infection Problem:Wound Risk of Infection Goal:Knowledgeable of infection Completed sn educated on s/s of infection that should be reported to nurse and doctor patient verbalized understanding Hydration for Wound Healing Description: Instruct on adequate hydration for wound healing, generally 6.5-8 cups (52-64oz/day). Unless health professional has suggested a fluid restriction Problem:Wound Education and Management Goal:Knowledgeable on Woundcare Completed sn instructed patient on high protein diet with fresh fruit vegtables with 6.5-8 cups water daily patient vebalzed understanding. Negative pressure wound therapy Description: Device: [employer] activac Skilled nurse to perform NPWT dressing change frequency 3 x weekly and prn inability to maintain npwt dressing. . continuous Negative pressure wound therapy: Effective date 05/06/19 at 125 mmhg. Site lower abd as follows: Cleanse wound with wound cleanse, pack tunnel with white foam once the depth reachs 2.5 cm, but use black foam until depth reaches 2.5cm, apply black foam to wound bed, cover with occlusive drape. May apply skin protective wipe such as skin prep to periwound. Problem:Wound Care Goal:Progression towards healing Completed Device: [employer] activac Skilled nurse to perform NPWT dressing change frequency 3 x weekly and prn inability to maintain npwt dressing. . continuous Negative pressure wound therapy: Effective date 05/06/19 at 125 mmhg. Site lower abd as follows: Cleanse wound with wound cleanse, pack tunnel with white foam once the depth reachs 2.5 cm, but use black foam until depth reaches 2.5cm, apply black foam to wound bed, cover with occlusive drape. May apply skin protective wipe such as skin prep to periwound. documented in this encounter Home Health Visit - Actions and Narratives Actions snv today to assess wound, w ound care, wound vac change, and education. sn assessed wound with no s/s of infection. wound care done patient tolerated well. wound vac intac with wound vac change patient tolerated well. sn educated patient on diet and ostomy care see intervention note. Narratives v today t documented in this encounter Care Teams Absorber Operator Relationship Specialty Start Date End Date Julio César Briseno MD PCP - General 10/01/16 Eren Cr MD Referring Physician Medical Oncology 11/25/18 Yohana Bowen MD Radiation Oncologist Radiation Oncology 11/25/18 documented as of this encounter
--- OUTSIDE RECORDS SUMMARY | 2024-06-25 22:34 | XMS_ITS | Encounter Summary ---
Author Organization [facility] Home Care [facility] es Address [address] [place] [address] Phone Care Team Providers Care Laborer Orchard Name Role Phone Julio César Briseno MD Primary Care Provider [phone] Eren Cr MD Unavailable [phone] Yohana Bowen MD Unavailable Reason for Visit * Auth/Cert Specialty Diagnoses / Procedures Referred By Evelyne t Referred To Contact Referral ID Status Reason Start Date Expiration Date Visits Re quested Visits Authorized [id number] 1 1 Encounter Details Date Type Department Care Team (Late st Contact Info) Description 05/11/2019 1:00 PM ANDROID IOS DEVELOPER Home Care Visit [facility] [address] [address] [address] [place] [address] Misa Barrow RN SN HOME VISIT Social History Tobacco Use Types Packs/Day Years Used Date Smoking Tobacco: Never Smokeless Tobacco: Never Alcohol Use Standard Drinks/Week Comments Yes 1 (1 standard drink = 0.6 oz pur e alcohol) Comments No Sex and Gender Information Value Date Recorded Sex Assigned at Not on file Legal Sex Female 2:41 PM ANDROID IOS DEVELOPER Gender Identity Not on file Sexual Orientation Straight 02/19/2021 9: 29 AM CDT Occupation Industry Job Start Date Job End Date retired Not on file Not on file Not on file documented as of this encounter Last Filed Vital Signs Vital Sign Reading Time Taken Comments Blood Pressure 120/60 05/11/2019 2:26 PM ANDROID IOS DEVELOPER Pulse 92 05/11/2019 2:26 PM ANDROID IOS DEVELOPER Temperature 36.5 ??C (97.7 ??F) 05/11/2019 2:26 PM CS T Respiratory Rate 18 05/11/2019 2:26 PM ANDROID IOS DEVELOPER Oxygen Saturation 98% 05/11/2019 2:26 PM ANDROID IOS DEVELOPER Inhaled Oxygen Concentration - - Weight - - Height - - Body Mass Index - - documented in this encounter Plan of Treatment Not on file documented as of this encounter Visit Diagnoses Not on filedocumented in this encounter Home Health Visit - Care Plan Visit Details Visit Type -SN Home Visit Discipline -Jail Problems Problem Description Start Date Status Goals Interventions Homebound Status Disciplines: Jail, Occupational Therapy Patient's homebound status 9 Active 1 goal linked to scheduled/docume nted intervention 1 goal intervention scheduled/documen omar in this visit Monitor patient's vital signs every home health visit Disciplines: Jail, Occupational Therapy Monitor patient's vital signs every home health visit. 9 Active 1 goal linked to scheduled/docume nted intervention 2 goal interventions scheduled/documen omar in this visit [place] Precautions Disciplines: Jail, Occupational Therapy [place] Precautions 9 Active 1 goal linked to scheduled/docume nted intervention 1 goal intervention scheduled/documen omar in this visit Risk for imbalanced nutrition Disciplines: Jail less then body requirements: nutritional intake insufficient to meet metabolic needs related to Colostomy 9 Active 1 goal linked to scheduled/docume nted intervention 1 goal intervention scheduled/documen omar in this visit Risk for deficient fluid volume Disciplines: Jail At risk for decreased fluid related to Colostomy 9 Active 1 goal linked to scheduled/docume nted intervention 1 goal intervention scheduled/documen omar in this visit Coping with disturbed body image Disciplines: Jail change in mental picture related to Colostomy 9 Active 1 goal linked to scheduled/docume nted intervention 1 goal intervention scheduled/documen omar in this visit Knowledge Deficit - Ostomy Disciplines: Jail 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 9 Active 1 goal linked to scheduled/docume nted intervention 3 goal interventions scheduled/documen omar in this visit Wound Risk of Infection Disciplines: Jail Risk of infections related to wounds 9 Active 1 goal linked to scheduled/docume nted intervention 2 goal interventions scheduled/documen omar in this visit Wound Care Disciplines: Jail Wound care needed 9 Active 1 goal linked to scheduled/docume nted intervention 1 goal intervention scheduled/documen omar in this visit Goals Goal Associated Problem Outcome Goal Met? Visit Notes Patient recieves care at the most appropriate care setting Description: Patient receives care at the most appropriate care setting. Homebound Status No Measure vital signs during every home health visit during episode of care Description: Home medical coding auditor to measure vital signs during every home health visit during episode of care. Monitor patient's vital signs every home health visit No Demonstrate knowledge of universal precautions Description: Demonstrate knowledge of universal precautions [place] Precautions No Maintain Nutrtion Description: Maintain weight and [...] assistance with all ADLS and IADLS continues 05/11/19 . Monitor Vital Signs Description: Monitor blood pressure, pulse, oxygen saturation, respirations Problem:Monitor patient's vital signs every home health visit Goal:Measure vital signs during every home health visit during episode of care Completed Monitor weight Description: Monitor patient's weight as ordered Problem:Monitor patient's vital signs every home health visit Goal:Measure vital signs during every home health visit during episode of care Completed Aspects of Care Description: Instruct patient/caregiver on universal precautions and home infection control measures Problem:[place] Precautions Goal:Demonstrate knowledge of universal precautions Completed Assess Nutrition Description: Assess nutrition or have pt keep a food/hydration diary. Problem:Risk for imbalanced nutrition Goal:Maintain Nutrtion Completed Assess for dehydration Description: Assess vital signs, skin turgor capillary refill and mucous membranes Problem:Risk for deficient fluid volume Goal:Maintain Hydration Completed Instruct on self care for appliance change Description: When instructing on care of stoma provide time for patient to touch stoma and encourange patient to do self-care Problem:Coping with disturbed body image Goal:Acceptance of Ostomy Completed Patient is now doing the empty of the ostomy bag. Patient remains fearful with ostmy change with wound vac in place. Educate on emptying of pouch Description: Instruct patient/caregiver to return demo of when/how to empty pouch including nighttime drainage. Problem:Knowledge Deficit - Ostomy Goal:Verbalize understanding of Ostomy Completed patient returned correct demo of empty of bag. Oral intake for Ostomy Description: Instruct on diet and fluid intake per Information About Your Ostomy Booklet Problem:Knowledge Deficit - Ostomy Goal:Verbalize understanding of Ostomy Completed instructed fluid intake related to ostomy output with patient stats understanding of increased fluid needs related to ostomy output. Instruct on Ostomy Output Description: Instruct on future expectations including changes in output per Information About Your Ostomy Booklet Problem:Knowledge Deficit - Ostomy Goal:Verbalize understanding of Ostomy Completed Disposal of Dressing Description: Dispose of soiled dressing by place in bag then place in patient's trashcan. Problem:Wound Risk of Infection Goal:Knowledgeable of infection Completed Instruct patient/family/caregi bernabe on infection control and safe disposal of dressing materials Description: Instruct patient/caregiver on how to recognized signs and symptoms of infection and when to notify MANAGER OF HUMAN RESOURCES and/or physician per Wound Education Booklet. Instruct patient/caregiver on infection control measures and how to prevent infections Problem:Wound Risk of Infection Goal:Knowledgeable of infection Instruct patient/caregiver on how to recognized signs and symptoms of infection and when to notify MANAGER OF HUMAN RESOURCES and/or physician per Wound Education Booklet. Instruct patient/caregiver on infection control measures and how to prevent infections with patient stating understanding. Negative pressure wound therapy Description: Device: [employer] activac Skilled nurse to perform NPWT dressing [...] periwound. Problem:Wound Care Goal:Progression towards healing Completed documented in this encounter Home Health Visit - Actions and Narratives Actions # [id number] box each [id number] [address] Nikko Pouch ! box each [id number] Sen nida [place] Barrier Called to Dr Briseno spoke with Rosio about patient having vomiting as she had done in the hospital. Also that patient may not be compliant with meds and that the family had been instructed to set meds up in exercise planner and monitor daily meds intake. Rosio states patient having visit with MD on 05/12, she will leave MD note of concerns. documented in this encounter Care Teams Laborer Orchard Relationship Specialty Start Date End Date Julio César Briseno MD PCP - General 10/01/16 Eren Cr MD Referring Physician Medical Oncology 11/25/18 Yohana Bowen MD Radiation Oncologist Radiation Oncology 11/25/18 documented as of this encounter
--- OUTSIDE RECORDS SUMMARY | 2024-06-25 22:34 | XMS_ITS | Encounter Summary ---
Author Organization [facility] Address [address] [place] [address] Phone Care Team Providers Care Pattern Chain Maker Supervisor Name Role Phone Julio César Briseno MD Primary Care Provider [phone] Eren Cr MD Unavailable [phone] Yohana Bowen MD Unavailable Reason for Visit * Auth/Cert Specialty Diagnoses / Procedures Referred By Evelyne t Referred To Contact Referral ID Status Reason Start Date Expiration Date Visits Re quested Visits Authorized [id number] 1 1 Encounter Details Date Type Department Care Team (Latest Contact Info) Description 05/06/2019 2:00 PM CDT Home Care Visit [facility] [address] [address] [address] [place] [address] Misa Barrow RN SN OASIS RESUMPTION OF CARE Social History Tobacco Use Types Packs/Day Years Used Date Smoking Tobacco: Never Smokeless Tobacco: Never Alcohol Use Standard Drinks/Week Comments Yes 1 (1 standard drink = 0.6 oz pur e alcohol) Comments No Sex and Gender Information Value Date Recorded Sex Assigned at Not on file Legal 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 Gender Identity Not on file Sexual Orientation Straight 02/19/2021 9: 29 AM CDT Occupation Industry Job Start Date Job End Date retired Not on file Not on file Not on file documented as of this encounter Last Filed Vital Signs Vital Sign Reading Time Taken Comments Blood Pressure 134/70 05/06/2019 2:21 PM CDT Pulse 94 05/06/2019 2:21 PM CDT Temperature 37.3 ??C (99.1 ??F) 05/06/2019 2:21 PM CD T Respiratory Rate 18 05/06/2019 2:21 PM CDT Oxygen Saturation 98% 05/06/2019 2:21 PM CDT Inhaled Oxygen Concentration - - Weight - - Height - - Body Mass Index - - documented in this encounter Plan of Treatment Not on file documented as of this encounter Visit Diagnoses Not on filedocumented in this encounter Home Health Visit - Care Plan Visit Details Visit Type -SN OASIS Resumpt ion of Care Discipline -Mcfp Problems Problem Description Start Date Status Goals Interventions Homebound Status Disciplines: Mcfp, Occupational Therapy Patient's homebound status 9 Active 1 goal linked to scheduled/docume nted intervention 1 goal intervention scheduled/documen omar in this visit Monitor patient's vital signs every home health visit Disciplines: Mcfp, Occupational Therapy Monitor patient's vital signs every home health visit. 9 Active 1 goal linked to scheduled/docume nted intervention 1 goal intervention scheduled/documen omar in this visit Standardized Guidelines Disciplines: Mcfp Standardized Guidelines 9 Active 1 goal linked to scheduled/docume nted intervention 1 goal intervention scheduled/documen omar in this visit Pearce Precautions Disciplines: Mcfp, Occupational Therapy Pearce Precautions 9 Active 1 goal linked to scheduled/docume nted intervention 1 goal intervention scheduled/documen omar in this visit Risk for imbalanced nutrition Disciplines: Mcfp less then body requirements: nutritional intake insufficient to meet metabolic needs related to Colostomy 9 Active 1 goal linked to scheduled/docume nted intervention 1 goal intervention scheduled/documen omar in this visit Risk for deficient fluid volume Disciplines: Mcfp At risk for decreased fluid related to Colostomy 9 Active 1 goal linked to scheduled/docume nted intervention 2 goal interventions scheduled/documen omar in this visit Coping with disturbed body image Disciplines: Mcfp change in mental picture related to Colostomy 9 Active 1 goal linked to scheduled/docume nted intervention 2 goal interventions scheduled/documen omar in this visit Knowledge Deficit - Ostomy Disciplines: Mcfp 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 9 Active 1 goal linked to scheduled/docume nted intervention 3 goal interventions scheduled/documen omar in this visit Wound Risk of Infection Disciplines: Mcfp Risk of infections related to wounds 9 Active 1 goal linked to scheduled/docume nted intervention 2 goal interventions scheduled/documen omar in this visit Wound Care Disciplines: Mcfp Wound care needed 9 Active 1 goal [...] visit during episode of care Description: Home media librarian to measure vital signs during every home health visit during episode of care. Monitor patient's vital signs every home health visit No Understanding of when to notify MD in absence of home care staff Description: Understanding of when to notify MD in absence of home care staff Standardized Guidelines No Demonstrate knowledge of universal precautions Description: Demonstrate knowledge of universal precautions Pearce Precautions No Maintain Nutrtion Description: Maintain weight [...] health visit during episode of care Completed Physician notification Description: Use standardized clinical guidelines for notifying physician of abnormal vital signs or clinical findings Problem:Standardized Guidelines Goal:Understanding of when to notify MD in absence of home care staff Completed Notified Dr Cifuentes ofice related to patient resume care with wound vac and ongoing care. Aspects of Care Description: Instruct patient/caregiver on universal precautions and home infection control measures Problem:Pearce Precautions Goal:Demonstrate knowledge of universal precautions Completed Assess Nutrition Description: Assess nutrition or have pt keep a food/hydration diary. Problem:Risk for imbalanced nutrition Goal:Maintain Nutrtion Completed Educate to prevent dehydration Description: Instruct per Information About Your Ostomy Booklet Problem:Risk for deficient fluid volume Goal:Maintain Hydration Completed Instructed to increase fluid intake related to ostomy freq of BM and fluid loss with patient and family stating understanding. Assess for dehydration Description: Assess vital signs, skin turgor capillary refill and mucous membranes Problem:Risk for deficient fluid volume Goal:Maintain Hydration Completed Consult CWON for continuing problems Description: Consult CWON if needed for Colostomy problems Problem:Coping with disturbed body image Goal:Acceptance of Ostomy Completed Called Mj rAce re: wound vac as ordered will follow as needed Assess of Ostomy Healing Description: Instruct on areas of healing and what a normal stoma appearance is. Problem:Coping with disturbed body image Goal:Acceptance of Ostomy Completed Educate on Ostomy Appliance Description: Intervention Description: Instruct patient/caregiver to return demo of appliance change may include written and or phots directions. Problem:Knowledge Deficit - Ostomy Goal:Verbalize understanding of Ostomy Completed Intervention Description: Instruct patient/caregiver to return demo of appliance with family assisting with care Instruct on Ostomy Output Description: Instruct on future expectations including changes in output per Information About Your Ostomy Booklet Problem:Knowledge Deficit - Ostomy Goal:Verbalize understanding of Ostomy Completed Instruct on future expectations including changes in output per Information About Your Ostomy Booklet with family asking questions about changing bag and freq of movements Anatomy of Ostomy Description: Review with Patient/Caregiver anatomy and implications of surgical interventions per Information About Your Ostomy Booklet Problem:Knowledge Deficit - Ostomy Goal:Verbalize understanding of Ostomy Completed Review with Patient/Caregiver anatomy and implications of surgical interventions per Information About Your Ostomy Booklet done this visit with patient, and daughter Disposal of Dressing Description: Dispose of soiled dressing by place in bag then place in patient's trashcan. Problem:Wound Risk of Infection Goal:Knowledgeable of infection Completed Instruct Hand Washing Description: Instruct patient/caregiver on hand wash technique Problem:Wound Risk of Infection Goal:Knowledgeable of infection Completed Instructed patient and caregivers to wash hands before and after care with all stating understanding. Skilled assessment wound Description: Full wound assessment including measurement weekly. Wound assessment each visit Problem:Wound Care Goal:Progression towards healing Completed Negative pressure wound therapy Description: Device: STEVEN carias Skilled nurse to perform NPWT dressing change [...] Problem:Wound Care Goal:Progression towards healing Completed Device: STEVEN carias Skilled nurse to perform NPWT dressing change [...] to wound bed, cover with occlusive drape. documented in this encounter Home Health Visit - Actions and Narratives Actions # [id number] 1 box 4x4 2 abd, 1 box applicators, 10 bullet NS, 1 loaf of 4x4's HEATHER Morrison/ Dr Cifuentes for nursing 2x week then 3xweekly for wound vac care and wound vac dressing as ordered. Patient now home with wound vac. Patient and family instructed on leak care of wound vac and how to wet to dry pack wound if vac should malfunction with family stating understanding and demo of leak application strips. Narratives M1630 - Ostomy for Bowel Lucila mination Documented Answer: 1 - Patient's ostomy was not related to an inpatient stay and did not necessitate change in medical or treatment regimen. Recommendation: 2 - The ostomy was related to an inpatient stay or did necessitate change in medical or treatment regimen. There is ostomy teaching being performed. M1830 - Bathing Documented Answer: 2 - Able to bathe in shower or tub with the intermittent assistance of another person: (a) for intermittent supervision or encouragement or reminders, OR (b) to get in and out of the shower or tub, OR ( c) for washing difficult to reach areas. Recommendation: 3 - Able to participate in bathing self in shower or tub, but requires presence of another person throughout the bath for assistance or supervision. Clinical documentation reflects a MAHC-10 score greater than or equal to 4- patient is at risk for falls. For the purposes of this OASIS item, assistance includes verbal cuing and/or supervision. M1840 - Toilet Transferring Documented Answer: 0 - Able to get to and from the toilet and transfer independently with or without a device. Recommendation: 1 - When reminded, assisted, or supervised by another person, able to get to and from the toilet and transfer. Clinical documentation reflects a MAHC-10 score greater than or equal to 4- patient is at risk for falls. For the purposes of this OASIS item, assistance includes verbal cuing and/or supervision. M1850 - Transferring Documented Answer: 0 - Able to independently transfer. Recommendation: 1 - Able to transfer with minimal human assistance or with use of an assistive device. Clinical documentation reflects a MAHC-10 score greater than or equal to 4- patient is at risk for falls. For the purposes of this OASIS item, assistance includes verbal cuing and/or supervision. M1860 - Ambulation/Locomotion Documented Answer: 0 - Able to independently walk on even and uneven surfaces and negotiate stairs with or without railings (specifically: needs no human assistance or assistive device). Recommendation: 3 - Able to walk only with the supervision or assistance of another person at all times. Clinical documentation reflects a MAHC-10 score greater than or equal to 4- patient is at risk for falls. For the purposes of this OASIS item, assistance includes verbal cuing and/or supervision. TI6749 - Coding: Safety and Quality of Performance ? If helper assistance is required because patient? s performance is unsafe or of poor quality, score according to amount of assistance provided. Activities may be completed with or without assistive devices. Based on the documentation, human assistance such as verbal cues/steadying was required to complete this activity. CH9900 RL6876.C.1 - Toileting Hygiene: The ability to maintain perineal hygiene, adjust clothes before and after voiding or having a bowel movement. If managing an ostomy, include wiping the opening but not managing equipment. Documented Answer: 06. Independent ? Patient completes the activity by him/herself with no assistance from a helper. Recommendation: 04. Supervision or touching assistance ? Hudson provides verbal cues and/or touching/steadying and/or contact guard assistance as patient completes activity. Assistance may be provided throughout the activity or intermittently. PP4195 - Mobility: Code the patient? s usual performance at [facility] for each activity using the 6-point scale. If activity was not attempted at SOC/KUNAL, code the reason. Code the patient? s discharge goal(s) using the 6-point scale. Use of codes 07, 09, 10 or 88 is permissible to code discharge goal(s). Based on the documentation, human assistance such as verbal cues/steadying was required to complete this activity. XQ5351 QQ5496.E.1 - Chair/cdl-da-powmj transfer: The ability to transfer to and from a bed to a chair (or wheelchair). Documented Answer: 06. Independent ? Patient completes the activity by him/herself with no assistance from a helper. Recommendation: 04. Supervision or touching assistance ? Hudson provides verbal cues and/or touching/steadying and/or contact guard assistance as patient completes activity. Assistance may be provided throughout the activity or intermittently. [id number].F.1 - Toilet tranfer: The ability to get on and off a toilet or commode. Documented Answer: 06. Independent ? Patient completes the activity by him/herself with no assistance from a helper. Recommendation: 04. Supervision or touching assistance ? Hudson provides verbal cues and/or touching/steadying and/or contact guard assistance as patient completes activity. Assistance may be provided throughout the activity or intermittently. [id number] CT2554.G.1 - Car Transfer: The ability to transfer in and out of a car or van on the passenger side. Does not include the ability to open/close door or fasten seat belt. Documented Answer: 06. Independent ? Patient completes the activity by him/herself with no assistance from a helper. Recommendation: 04. Supervision or touching assistance ? Hudson provides verbal cues and/or touching/steadying and/or contact guard assistance as patient completes activity. Assistance may be provided throughout the activity or intermittently. OT2123 WR5336.I.1 - Walk 10 feet: Once standing, the ability to walk at least 10 feet in a room, corridor, or similar space. If SOC/KUNAL performance is coded 07, 09, 10 or 88, skip to [id number], 1 step (curb) Documented Answer: 06. Independent ? Patient completes the activity by him/herself with no assistance from a helper. Recommendation: 04. Supervision or touching assistance ? Hudson provides verbal cues and/or touching/steadying and/or contact guard assistance as patient completes activity. Assistance may be provided throughout the activity or intermittently. WT5042 BC6887.J.1 - Walk 50 feet with two turns: Once standing, the ability to walk 50 feet and make two turns. Documented Answer: 06. Independent ? Patient completes the activity by him/herself with no assistance from a helper. Recommendation: 04. Supervision or touching assistance ? Hudson provides verbal cues and/or touching/steadying and/or contact guard assistance as patient completes activity. Assistance may be provided throughout the activity or intermittently. [id number] HZ5609.K.1 - Walk 150 feet: Once standing, the ability to walk at least 150 feet in a corridor or similar space. Documented Answer: 06. Independent ? Patient completes the activity by him/herself with no assistance from a helper. Recommendation: 04. Supervision or touching assistance ? Hudson provides verbal cues and/or touching/steadying and/or contact guard assistance as patient completes activity. Assistance may be provided throughout the activity or intermittently. [id number] LR9223.P.1 - Picking up object: The ability to bend/stoop from a standing position to tile picker a small object, such as a spoon, from the floor. Documented Answer: 06. Independent ? Patient completes the activity by him/herself with no assistance from a helper. Recommendation: 04. Supervision or touching assistance ? Hudson provides verbal cues and/or touching/steadying and/or contact guard assistance as patient completes activity. Assistance may be provided throughout the activity or intermittently. M1028 - Comorbidities and Co-existing Conditions Recommendation: 3 - None of the above Chuckya Diaz DPO 05/12/2019 Chart review and recommendation made by Laura Enamorado CCS, [employer] documented in this encounter Care Teams Pattern Chain Maker Supervisor Relationship Specialty Start Date End Date Julio César Briseno MD PCP - General 10/01/16 Eren Cr MD Referring Physician Medical Oncology 11/25/18 Yohana Bowen MD Radiation Oncologist Radiation Oncology 11/25/18 documented as of this encounter
--- OUTSIDE RECORDS SUMMARY | 2024-06-25 22:34 | XMS_ITS | Encounter Summary ---
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) Procedures [place] OCTREOTIDE INJECTION, DEPOT Octreotide 28 Day Cycles - Carcinoid Eren Cr MD [address] [place] [address] Phone: tel: fax: [address] [address] Phone: tel: fax: Referral ID Status Reason Start Date Expiration Date V isits Requested Visits Authorized [id number] Authorized 11/28/2017 02/05/2025 1 150 Encounter Details Date Type Department Care Team (Late st Contact Info) Description 06/10/2019 4:00 PM DIRECTOR CORPORATE COMMUNICATIONS Infusion [facility] Advanced Medicine 7th [place] [address] Neuroendocrine carcinoma (CMS/HCC) (Primary Dx); Malignant neoplasm metastatic to liver (CMS/HCC) Social History Tobacco Use Types Packs/Day Years Used Date Smoking Tobacco: Never Smokeless Tobacco: Never Alcohol Use Standard Drinks/Week Comments Yes 1 (1 standard drink = 0.6 oz pur e alcohol) Comments No Sex and Gender Information Value Date Recorded Sex Assigned at Not on file 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 CORPORATE COMMUNICATIONS Gender Identity Not on file Sexual Orientation Straight 02/19/2021 9: 29 AM CDT Occupation Industry Job Start Date Job End Date retired Not on file Not on file Not on file documented as of this encounter Last Filed Vital Signs Vital Sign Reading Time Taken Comments Blood Pressure - - Pulse - - Temperature 37.3 ??C (99.1 ??F) 06/10/2019 1:23 PM CS T Respiratory Rate 20 06/10/2019 1:23 PM DIRECTOR CORPORATE COMMUNICATIONS Oxygen Saturation - - Inhaled Oxygen Concentration - - Weight - - Height - - Body Mass Index - - documented in this encounter Nursing Notes * Jaimee Cullen RN - 06/10/2019 4:00 PM CST Patient received sandostatin right dorsogluteal. Tolerated well and discharged ambulatory. CTOR CORPORATE COMMUNICATIONS documented in this encounter Plan of Treatment [...] 30 mg 30 mg, intramuscular, Once, On Sat06/10/19 at 1400, For 1 dose, Refrigerate. For IM administration only. 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),Neuroendocrine carcinoma (HCC) Given 06/10/2019 1:31 PM DIRECTOR CORPORATE COMMUNICATIONS 30 mg Right Dorsogluteal/Butt ock documented in this encounter Orders Medications Ordered That Brett ht Not Have Been Administered Count Last Ordered Date First Ordered Date octreotide LAR (SandoSTATIN LAR) extended release intramuscular injection 30 mg 1 06/10/2019 Appointment Requests Count Last Ordered Date Fi rst Ordered Date ONCBCN INJECTION APPOINTMENT REQUEST 1 10/2018 documented in this encounter Care Teams Assembler Caterpillar Spider Relationship Specialty Start Date End Date Julio César Briseno MD PCP - General 10/01/16 Eren Cr MD Referring Physician Medical Oncology 11/25/18 Yohana Bowen MD Radiation Oncologist Radiation Oncology 11/25/18 documented as of this encounter
--- OUTSIDE RECORDS SUMMARY | 2024-06-25 22:34 | XMS_ITS | Encounter Summary ---
Author Organization [facility] Address [address] [place] [address] Phone Care Team Providers Care Foreign Agent Name Role Phone Julio César Briseno MD Primary Care Provider [phone] Eren Cr MD Unavailable [phone] Yohana Bowen MD Unavailable Reason for Visit * Auth/Cert Specialty Diagnoses / Procedures Referred By Evelyne t Referred To Contact Referral ID Status Reason Start Date Expiration Date Visits Re quested Visits Authorized [id number] 1 1 Encounter Details Date Type Department Care Team (Late st Contact Info) Description 05/08/2019 1:00 PM CDT Home Care Visit [facility] [address] [address] [address] [place] [address] Misa Barrow RN SN HOME VISIT Social History Tobacco Use Types Packs/Day Years Used Date Smoking Tobacco: Never Smokeless Tobacco: Never Alcohol Use Standard Drinks/Week Comments Yes 1 (1 standard drink = 0.6 oz pur e alcohol) Comments No Sex and Gender Information Value Date Recorded Sex Assigned at Not on file 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 Gender Identity Not on file Sexual Orientation Straight 02/19/2021 9: 29 AM CDT Occupation Industry Job Start Date Job End Date retired Not on file Not on file Not on file documented as of this encounter Last Filed Vital Signs Vital Sign Reading Time Taken Comments Blood Pressure 150/70 05/08/2019 2:50 PM CDT Pulse 96 05/08/2019 2:50 PM CDT Temperature 36.9 ??C (98.5 ??F) 05/08/2019 2:50 PM CD T Respiratory Rate 18 05/08/2019 2:50 PM CDT Oxygen Saturation 98% 05/08/2019 2:50 PM CDT Inhaled Oxygen Concentration - [...] Date Status Goals Interventions Homebound Status Disciplines: Detention, Occupational Therapy Patient's homebound status 9 Active 1 goal linked to scheduled/docume nted intervention 1 goal intervention scheduled/documen omar in this visit Monitor patient's vital signs every home health visit Disciplines: Detention, Occupational Therapy Monitor patient's vital signs every home health visit. 9 Active 1 goal linked to scheduled/docume nted intervention 1 goal intervention scheduled/documen omar in this visit [place] Precautions Disciplines: Detention, Occupational Therapy [place] Precautions 9 Active 1 goal linked to scheduled/docume nted intervention 1 goal intervention scheduled/documen omar in this visit Risk for imbalanced nutrition Disciplines: Detention less then body requirements: nutritional intake insufficient to meet metabolic needs related to Colostomy 9 Active 1 goal linked to scheduled/docume nted intervention 2 goal interventions scheduled/documen omar in this visit Coping with disturbed body image Disciplines: Detention change in mental picture related to Colostomy 9 Active 1 goal linked to scheduled/docume nted intervention 2 goal interventions scheduled/documen omar in this visit Knowledge Deficit - Ostomy Disciplines: Detention 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 9 Active 1 goal linked to scheduled/docume nted intervention 1 goal intervention scheduled/documen omar in this visit Wound Care Disciplines: Detention Wound care needed 9 Active 1 goal [...] visit during episode of care Description: Home file keeper to measure vital signs during every home health visit during episode of care. Monitor patient's vital signs every home health visit No Demonstrate knowledge of universal precautions Description: Demonstrate knowledge of universal precautions [place] Precautions No Maintain Nutrtion Description: Maintain weight and plan diet that will meet nutritional needs and limit GI disturbances. Risk for imbalanced nutrition No Acceptance of Ostomy Description: Patient will state acceptance of self by demonstrating self-care Coping with disturbed body image No Verbalize understanding of Ostomy Description: Patient with verbalize understanding of ostomy care, potential complications, correctly perform appliance change and initiate necessary lifestyle changes by 4th week of Homecare Knowledge Deficit - Ostomy No Progression towards healing Description: Wound show [...] assistance with all ADLS and IADLS continues 05/08/19 Monitor Vital Signs Description: Monitor blood pressure, pulse, oxygen saturation, respirations Problem:Monitor patient's vital signs every home health visit Goal:Measure vital signs during every home health visit during episode of care Scheduled Aspects of Care Description: Instruct patient/caregiver on universal precautions and home infection control measures Problem:[place] Precautions Goal:Demonstrate knowledge of universal precautions Completed Educate on Nutrition Description: Instruct on diet per Information About You Ostomy Booklet Problem:Risk for imbalanced nutrition Goal:Maintain Nutrtion Completed Instructed on foods that are not gas forming to prevent bag from filling with air Patient staties understanding Assess Nutrition Description: Assess nutrition or have pt keep a food/hydration diary. Problem:Risk for imbalanced nutrition Goal:Maintain Nutrtion Completed Assess of Ostomy Healing Description: Instruct on areas of healing and what a normal stoma appearance is. Problem:Coping with disturbed body image Goal:Acceptance of Ostomy Completed Assess behaviors and suport Description: Assess for noninvolvement of care, behaviors of withdrawal or increased dependency and Instruct on support groups in the area and how to contact per Information About Your Ostomy Booklet. Problem:Coping with disturbed body image Goal:Acceptance of Ostomy Completed Educate on emptying of pouch Description: Instruct patient/caregiver to return demo of when/how to empty pouch including nighttime drainage. Problem:Knowledge Deficit - Ostomy Goal:Verbalize understanding of Ostomy Completed Patient did correct return of demo to empty bag correctly Negative pressure wound therapy Description: Device: [employer] activac Skilled nurse to perform NPWT dressing [...] periwound. Problem:Wound Care Goal:Progression towards healing Completed Perform dressing change Description: Back up wound care if NPWT machine malfunctions or is unavailable as follows: SN/Patient or caregiver: Cleanse wound with wound cleanser and pack wound with normal saline moistened gauze. Cover with dry gauze and secure with tape daily and prn for excess drainage or dislodgement of dressing. Problem:Wound Care Goal:Progression towards healing Completed documented in this encounter Home Health Visit - Actions and Narratives Actions Wound vac care done. Patient was sleeping on SN arrival she shetates she takes naps daily. documented in this encounter Care Teams Foreign Agent Relationship Specialty Start Date End Date Julio César Briseno MD PCP - General 10/01/16 Eren Cr MD Referring Physician Medical Oncology 11/25/18 Yohana Bowen MD Radiation Oncologist Radiation Oncology 11/25/18 documented as of this encounter
--- OUTSIDE RECORDS SUMMARY | 2024-06-25 22:34 | XMS_ITS | Encounter Summary ---
Author Organization [facility] Address [address] [place] [address] Phone Care Team Providers Care Corduroy Brusher Operator Name Role Phone Julio César Briseno MD Primary Care Provider Eren Cr MD Unavailable [phone] Yohana Bowen MD Unavailable Encounter Details Date Type Department Care Team (Late st Contact Info) Description 06/01/2019 10:45 AM CARDIOVASCULAR SURGEON Lab [facility] Oncology [facility] 7th [place] [address] [place] [address] Neuro-endocrine carcinoma (CMS/HCC) Social History Tobacco Use Types Packs/Day Years Used Date Smoking Tobacco: Never Smokeless Tobacco: Never Alcohol Use Standard Drinks/Week Comments Yes 1 (1 standard drink = 0.6 oz pur e alcohol) Comments No Sex and Gender Information Value Date Recorded Sex Assigned at Not on file Legal Sex Female 2:41 PM CARDIOVASCULAR SURGEON Gender Identity Not on file Sexual Orientation Straight 02/19/2021 9: 29 AM CDT Occupation Industry Job Start Date Job End Date retired Not on file Not on file Not on file documented as of this encounter Plan of Treatment Not on file documented as of this encounter Procedures Procedure Name Priority Date/Time Associated Diagnosis Comments CHROMOGRANIN A Routine 06/01/2019 10:46 AM CARDIOVASCULAR SURGEON Neuro-endocrine carcinoma (CMS/HCC) COMPREHENSIVE METABOLIC PANEL Routine 06/01/2019 10:46 AM CARDIOVASCULAR SURGEON Neuro-endocrine carcinoma (CMS/HCC) DIFFERENTIAL AUTO Routine 06/01/2019 10: 45 AM CARDIOVASCULAR SURGEON Neuro-endocrine carcinoma (CMS/HCC) CBC WITH AUTO DIFFERENTIAL Routine 06/01/2019 10:45 AM CARDIOVASCULAR SURGEON Neuro-endocrine carcinoma (CMS/HCC) documented in this encounter Results * (ABNORMAL) Comprehensive metabolic panel (06/01/2019 10:46 AM CARDIOVASCULAR SURGEON) Sodium 142 135 - 145 mmol/L [facility] Potassium, pl 4.3 3.3 - 4.9 mmol/L [facility] Chloride 109 97 - 110 mmol/L [facility] CO2 28 22 - 32 mmol/L [facility] Anion gap 6 2 - 15 mmol/L [facility] BUN 11 8 - 25 mg/dL [facility] Creatinine 0.81 0.60 - 1.10 mg/dL [facility] Glucose 123 70 - 199 mg/dL [facility] Comment: Interpretive Data Fasting glucose >/= [...] 2017. Calcium 10.4(H) 8.5 - 10.3 mg/dL [facility] Bilirubin, total 0.4 0.1 - 1.2 mg/dL [facility] Protein, pl 6.7 6.5 - 8.5 g/dL [facility] Albumin 4.0 3.5 - 5.0 g/dL [facility] Alk phos 78 40 - 130 Units/L [facility] ALT 14 7 - 45 Units/L [facility] AST 19 10 - 45 Units/L [facility] Blood specimen (specimen) 06/01/2019 10:46 AM CARDIOVASCULAR SURGEON 06/01/2019 10:55 AM CARDIOVASCULAR SURGEON Eren Cr MD LAB BLOOD ORDERABLES Final Re sult Performing Organization Address [facility] Co de Phone Number [facility] [place] [address] * (ABNORMAL) Chromogranin A (06/01/2019 10:46 AM CARDIOVASCULAR SURGEON) Chromogranin A 376(H) <93 ng/mL [facility] Comment: Impaired renal or hepatic function or treatment with proton pump inhibitors may result in artifactual elevations of Chromogranin A. ADDITIONAL INFORMATION This test was developed and its performance characteristics [facility] by [facility] in a manner consistent with [...] absence of malignant disease. Test Performed by: [facility] [place] [address] Snuff Container Inspector: Immanuel Novak M.D. Ph.D.; CLIA# [id number] Blood specimen (specimen) 06/01/2019 10:46 AM CARDIOVASCULAR SURGEON 06/01/2019 11:30 AM CARDIOVASCULAR SURGEON Eren Cr MD LAB BLOOD ORDERABLES Final Re sult [facility] [place] [place] [address] * (ABNORMAL) Differential, auto (06/01/2019 10:45 AM CARDIOVASCULAR SURGEON) Neutrophil abs 3.2 1.8 - 6.6 K/cumm [facility] Comment:Testing performed by : [facility], [address] [place] [phone] Lymphocyte abs 0.5(L) 1.2 - 3.3 K/cumm [facility] Comment:Testing performed by : [facility], [address] [place] [phone] Monocyte abs 0.5 0.2 - 1.2 K/cumm [facility] Comment:Testing performed by : [facility], [address] [place] [phone] Eosinophil abs 0.1 0.0 - 0.5 K/cumm [facility] Comment:Testing performed by : [facility], [address] [place] [phone] Basophil abs 0.0 0.0 - 0.2 K/cumm [facility] Comment:Testing performed by : [facility], [address] [place] [phone] Neutrophil pct 73.5 % [facility] Comment: Interpretive Data Percent cell count reference ranges are not reported, since discordance with absolute values may lead to misinterpretation of CBC data. Current Interpretive Data was last revised on 2017. Testing performed by: [facility], [address] [place] [phone] Lymphocyte pct 10.6 % [facility] Comment: Interpretive Data Percent cell count reference ranges are not reported, since discordance with absolute values may lead to misinterpretation of CBC data. Current Interpretive Data was last revised on 2017. Testing performed by: [facility], [address] [place] [phone] Monocyte pct 12.8 % [facility] Comment:Testing performed by : [facility], [address] [place] [phone] Eosinophil pct 2.5 % [facility] Comment:Testing performed by : [facility], [address] [place] [phone] Basophil pct 0.6 % [facility] Comment:Testing performed by : [facility], [address] [place] [phone] Blood specimen (specimen) 06/01/2019 10:45 AM CARDIOVASCULAR SURGEON 06/01/2019 10:49 AM CARDIOVASCULAR SURGEON us Eren Cr MD LAB BLOOD ORDERABLES Final Re sult [facility] Department [place] [address] * (ABNORMAL) CBC with auto differential (06/01/2019 10:45 AM CARDIOVASCULAR SURGEON) WBC 4.3 3.8 - 9.8 K/cumm [facility] Comment:Testing performed by : [facility], [address] [place] [phone] Hgb 12.2 12.1 - 15.1 g/dL [facility] Comment:Testing performed by : [facility], [address] [place] [phone] Hct 36.3 36.1 - 44.3 % [facility] Comment:Testing performed by : [facility], [address] [place] [phone] Plt 132(L) 140 - 440 K/cumm [facility] Comment:Testing performed by : [facility], [address] [place] [phone] MPV 7.7 6.8 - 10.4 fL [facility] Comment:Testing performed by : [address] [phone] RBC 4.01 3.90 - 5.00 M/cumm [facility] Comment:Testing performed by : [address] [phone] MCV 90.6 80.0 - 97.6 fL [facility] Comment:Testing performed by : [address] [phone] MCH 30.5 26.7 - 33.7 pg [facility] Comment:Testing performed by : [address] [phone] MCHC 33.7 32.7 - 35.5 g/dL [facility] Comment:Testing performed by : [facility], [address] [facility] [phone] RDW CV 15.8(H) 11.8 - 14.6 % [facility] Comment:Testing performed by : [facility], [address] [facility] [phone] NRBC abs 0.00 0.00 - 0.01 K/cumm [facility] Comment:Testing performed by : [facility], [address] [place] [phone] Blood specimen (specimen) 06/01/2019 10:45 AM CARDIOVASCULAR SURGEON 06/01/2019 10:49 AM CARDIOVASCULAR SURGEON us Eren Cr MD LAB BLOOD ORDERABLES Final Re sult [facility] [place] [address] documented in this encounter Visit Diagnoses Diagnosis Neuro-endocrine carcinoma (HCC) Other malignant neoplasm of unspecified site documented in this encounter Care Teams Corduroy Brusher Operator Relationship Specialty Start Date End Date Julio César Briseno MD PCP - General 10/01/16 Eren Cr MD Referring Physician Medical Oncology 11/25/18 Yohana Bowen MD Radiation Oncologist Radiation Oncology 11/25/18 documented as of this encounter
--- OUTSIDE RECORDS SUMMARY | 2024-06-25 22:34 | XMS_ITS | Encounter Summary ---
Author Organization [facility] Address [address] [place] [address] Phone Care Team Providers Care Bull Gang Supervisor Name Role Phone Julio César Briseno MD Primary Care Provider Eren Cr MD Unavailable [phone] Yohana Bowen MD Unavailable Reason for Visit * Reason Onset Date Comments discharge follow up 04/27/2019 Encounter Details Date Type Department Care Team (Late st Contact Info) Description 04/27/2019 Telephone [facility] [address] [facility] 8th [place] [address] [place] [address] Mya Cam, pony trimmer follow up Social History Tobacco Use Types Packs/Day Years Used Date Smoking Tobacco: Never Smokeless Tobacco: Never Alcohol Use Standard Drinks/Week Comments Yes 1 (1 standard drink = 0.6 oz pur e alcohol) Comments No Sex and Gender Information Value Date Recorded Sex Assigned at Not on file 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 Patient reports pain is well managedwith OTC pain medication. Having soft bowel movements from colostomy since discharge. Patient reports less than normal po intake. Drinking small amounts of fluids per day. Denies nausea/vomit. No complaints of discomfort at procedure site. Patient complains of fatigue with activity and feeling like she was hit with a truck . Pouching is going okay, has only had it fall off once in the middle of the night. HH to remove mary. Patient plans to keep scheduled follow up in one month. They will call sooner should problems arise. Provided patient with office and exchange phone number. Mya Veliz RN 1:15 PM documented in this encounter Plan of Treatment Not on file documented as of this encounter Visit Diagnoses Not on filedocumented in this encounter Care Teams Bull Gang Supervisor Relationship Specialty Start Date End Date Julio César Briseno MD PCP - General 10/01/16 Eren Cr MD Referring Physician Medical Oncology 11/25/18 Yohana Bowen MD Radiation Oncologist Radiation Oncology 11/25/18 documented as of this encounter
--- OUTSIDE RECORDS SUMMARY | 2024-06-25 22:34 | XMS_ITS | Encounter Summary ---
Author Organization [facility] Address [address] [place] [address] Phone Care Team Providers Care Medical Sociologist Name Role Phone Julio César Briseno MD Primary Care Provider Eren Cr MD Unavailable Yohana Bowen MD Unavailable Reason for Visit * Reason Onset Date Comments home health care 05/07/2019 Encounter Details Date Type Department Care Team (Late st Contact Info) Description 05/07/2019 Telephone [facility] Surgery [address] [facility] 2nd Floor [address] [place] [address] Delfina Galloway Marvin home health care Social History Tobacco Use Types Packs/Day Years Used Date Smoking Tobacco: Never Smokeless Tobacco: Never Alcohol Use Standard Drinks/Week Comments Yes 1 (1 standard drink = 0.6 oz pur e alcohol) Comments No Sex and Gender Information Value Date Recorded Sex Assigned at Not on file Legal Sex Female 2:41 PM 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 Would like to use white foam instead of black foam when the wound becomes a little more shallow. Ok per Dr. Reeves. Also asked that she have the patient call and schedule a follow up from surgery. documented in this encounter Plan of Treatment Not on file documented as of this encounter Visit Diagnoses Not on filedocumented in this encounter Care Teams Medical Sociologist Relationship Specialty Start Date End Date Julio César Briseno MD PCP - General 10/01/16 Eren Cr MD Referring Physician Medical Oncology 11/25/18 Yohana Bowen MD Radiation Oncologist Radiation Oncology 11/25/18 documented as of this encounter
--- OUTSIDE RECORDS SUMMARY | 2024-06-25 22:34 | XMS_ITS | Encounter Summary ---
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); Neuroendocrine carcinoma (CMS/HCC) Social History Tobacco Use Types Packs/Day Years Used Date Smoking Tobacco: Never Smokeless Tobacco: Never Alcohol Use Standard Drinks/Week Comments Yes 1 (1 standard drink = 0.6 oz pur e alcohol) Comments No Sex and Gender Information Value Date Recorded Sex Assigned at Not on file Legal Sex Female 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
--- OUTSIDE RECORDS SUMMARY | 2024-06-25 22:34 | XMS_ITS | Encounter Summary ---
Author Organization [facility] Home Care Servic es Address [address] [place] [address] Phone Care Team Providers Care Apprentice Lineman Third Step Name Role Phone Julio César Briseno MD Primary Care Provider [phone] Eren Cr MD Unavailable Yohana Bowen MD Unavailable Reason for Visit * Auth/Cert Specialty Diagnoses / Procedures Referred By Evelyne t Referred To Contact Referral ID Status Reason Start Date Expiration Date Visits Re quested Visits Authorized [id number] 1 1 Encounter Details Date Type Department Care Team (Late st Contact Info) Description 05/25/2019 12:00 PM MULTICULTURAL SERVICES LIBRARIAN Home Care Visit [facility] [address] [address] [address] [place] [address] Misa Barrow RN SN HOME VISIT Social History Tobacco Use Types Packs/Day Years Used Date Smoking Tobacco: Never Smokeless Tobacco: Never Alcohol Use Standard Drinks/Week Comments Yes 1 (1 standard drink = 0.6 oz pur e alcohol) Comments No Sex and Gender Information Value Date Recorded Sex Assigned at Not on file Legal Sex Female 2:41 PM MULTICULTURAL SERVICES LIBRARIAN Gender Identity Not on file Sexual Orientation Straight 02/19/2021 9: 29 AM CDT Occupation Industry Job Start Date Job End Date retired Not on file Not on file Not on file documented as of this encounter Last Filed Vital Signs Vital Sign Reading Time Taken Comments Blood Pressure 130/62 05/25/2019 12:13 PM MULTICULTURAL SERVICES LIBRARIAN Pulse 86 05/25/2019 12:13 PM MULTICULTURAL SERVICES LIBRARIAN Temperature 36.8 ??C (98.2 ??F) 05/25/2019 12:[address] Respiratory Rate 18 05/25/2019 12:13 PM MULTICULTURAL SERVICES LIBRARIAN Oxygen Saturation 98% 05/25/2019 12:13 PM MULTICULTURAL SERVICES LIBRARIAN Inhaled Oxygen Concentration - - Weight - [...] Date Status Goals Interventions Homebound Status Disciplines: Mcc, Occupational Therapy Patient's homebound status 9 Active 1 goal linked to scheduled/docume nted intervention 1 goal intervention scheduled/documen omar in this visit Monitor patient's vital signs every home health visit Disciplines: Mcc, Occupational Therapy Monitor patient's vital signs every home health visit. 9 Active 1 goal linked to scheduled/docume nted intervention 1 goal intervention scheduled/documen omar in this visit [place] Precautions Disciplines: Mcc, Occupational Therapy [place] Precautions 9 Active 1 goal linked to scheduled/docume nted intervention 1 goal intervention scheduled/documen omar in this visit Risk for imbalanced nutrition Disciplines: Mcc less then body requirements: nutritional intake insufficient to meet metabolic needs related to Colostomy 9 Active 1 goal linked to scheduled/docume nted intervention 1 goal intervention scheduled/documen omar in this visit Risk for deficient fluid volume Disciplines: Mcc At risk for decreased fluid related to Colostomy 9 Active 1 goal linked to scheduled/docume nted intervention 1 goal intervention scheduled/documen omar in this visit Risk of Impaired Skin Integrity Disciplines: Mcc peristomal epidermis and or dermis at risk of breakdown related to effluent from Colostomy 9 Active 1 goal linked to scheduled/docume nted intervention 1 goal intervention scheduled/documen omar in this visit Knowledge Deficit - Ostomy Disciplines: Mcc 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 9 Active 1 goal linked to scheduled/docume nted intervention 3 goal interventions scheduled/documen omar in this visit Wound Risk of Infection Disciplines: Mcc Risk of infections related to wounds 9 Active 1 goal linked to scheduled/docume nted intervention 1 goal intervention scheduled/documen omar in this visit Wound Care Disciplines: Mcc Wound care needed 05/15/2019 Active 1 goal [...] visit during episode of care Description: Home intake clinician to measure vital signs during every home health visit during episode of care. Monitor patient's vital signs every home health visit No Demonstrate knowledge of universal precautions Description: Demonstrate knowledge of universal precautions [place] Precautions No Maintain Nutrtion Description: Maintain weight and plan diet that will meet nutritional needs and limit GI disturbances. Risk for imbalanced nutrition No Maintain Hydration Description: Maintain adequate hydration as evidenced by moist mucous membranes, good skin tugor stable vital signs and appropriate output. Risk for deficient fluid volume No Maintain Skin Integrity Description: Maintain peristomal skin. Pt/caregiver will demonstrate how to prevent/heal peristomal skin breakdown Risk of Impaired Skin Integrity No Verbalize understanding of Ostomy Description: Patient [...] needs assistance with all ADLS and IADLS Patient continues 05/25 Monitor Vital Signs Description: Monitor blood pressure, pulse, oxygen saturation, respirations Problem:Monitor patient's vital signs every home health visit Goal:Measure vital signs during every home health visit during episode of care Completed Aspects of Care Description: Instruct patient/caregiver on universal precautions and home infection control measures Problem:[place] Precautions Goal:Demonstrate knowledge of universal precautions Completed Assess Nutrition Description: Assess nutrition or have pt keep a food/hydration diary. Problem:Risk for imbalanced nutrition Goal:Maintain Nutrtion Completed Assess for dehydration Description: Assess vital signs, skin turgor capillary refill and mucous membranes Problem:Risk for deficient fluid volume Goal:Maintain Hydration Completed Ostomy Issues Description: Instruct on crusting with stomahesive powder as needed. Problem:Risk of Impaired Skin Integrity Goal:Maintain Skin Integrity Instruct on crusting with stomahesive powder as needed. Patient states understanding Educate on resumption of activity Description: Instruct on activities and getting back to pre-surgery activities. Problem:Knowledge Deficit - Ostomy Goal:Verbalize understanding of Ostomy Completed Instruct on activities and getting back to pre-surgery activities. Patient states understanding Educate on emptying of pouch Description: Instruct patient/caregiver to return demo of when/how to empty pouch including nighttime drainage. Problem:Knowledge Deficit - Ostomy Goal:Verbalize understanding of Ostomy Completed Instruct patient/caregiver to return demo of when/how to empty pouch including nighttime drainage. Patient states understanding Oral intake for Ostomy Description: Instruct on diet and fluid intake per Information About Your Ostomy Booklet Problem:Knowledge Deficit - Ostomy Goal:Verbalize understanding of Ostomy Completed Instruct on diet and fluid intake per Information About Your Ostomy Booklet Patient states understanding Disposal of Dressing Description: Dispose of soiled dressing by place in bag then place in patient's trashcan. Problem:Wound Risk of Infection Goal:Knowledgeable of infection Completed Skilled assessment wound Description: Full wound assessment including measurement weekly. Wound assessment each visit Problem:Wound Care Goal:Progression towards healing Completed Perform dressing change Description: Perform dressing change: [...] Visit - Actions and Narratives Actions Patient states that the osto my sprung a leak during the night on Saturday morning 12 am and patient did ostomy change without difficulity. Patient wants to start learning to do her own ostomy care next SNV. No otstomy change this day as it is secure. documented in this encounter Care Teams Apprentice Lineman Third Step Relationship Specialty Start Date End Date Julio César Briseno MD PCP - General 10/01/16 Eren Cr MD Referring Physician Medical Oncology 11/25/18 Yohana Bowen MD Radiation Oncologist Radiation Oncology 11/25/18 documented as of this encounter
--- OUTSIDE RECORDS SUMMARY | 2024-06-25 22:34 | XMS_ITS | Encounter Summary ---
Author Organization [facility] Healthcare Address [address] [place] [address] Care Team Providers Care Site Worker Name Role Phone Julio César Briseno MD Primary Care Provider [phone] Eren Cr MD Unavailable [phone] Yohana Bowen MD Unavailable Reason for Referral * Diagnostic Imaging (Routine) - Closed Specialty Diagnoses / Procedures Referred By Contac t Referred To Contact Radiology Diagnoses Neuroendocrine carcinoma (HCC) Procedures IR PICC Line Placement > 5 Years Yohana Bowen MD [address] [place] [address] # LL LL [address] [place] [address] Phone: tel: fax: [address] [phone] Referral ID Status Reason Start Date Expiration Date Visits Re quested Visits Authorized [id number] Closed 05/27/2019 12/05/2020 1 1 ER UP Encounter Details Date Type Department Care Team (Late st Contact Info) Description 05/27/2019 Orders Only [facility] Advanced Medicine Radiation Oncology [address] [place] [address] [place] [address] Hien Soto RN Neuroendocrine carcinoma (CMS/HCC) (Primary Dx) Social History Tobacco Use Types Packs/Day Years Used Date Smoking Tobacco: Never Smokeless Tobacco: Never Alcohol Use Standard Drinks/Week Comments Yes 1 (1 standard drink = 0.6 oz pur e alcohol) Comments No Sex and Gender Information Value Date Recorded Sex Assigned at Not on file Legal Sex Female 2:41 PM LINKER UP Gender Identity Not on file Sexual Orientation Straight 02/19/2021 9: 29 AM CDT Occupation Industry Job Start Date Job End Date retired Not on file Not on file Not on file documented as of this encounter Progress Notes * Hien Soto RN - 05/27/2019 1:00 PM CST 06/09/19: PICC line [facility] 3rd floor, arrive at 1300, appt at 1400. NPO 6 hours prior to procedure, patient will need a school bus driver/teacher assistant. If on any blood thinners, stop taking 24 to 48 hours prior. If on Xarelto or Plavix, must stop taking 4 to 5 days prior. 06/10/19: Lutathera, CAM LL arrive at 0700. CBC and Immunodeficency labs ordered per study. Instructed to get injection 4 to 24 hours post PRRT Lodging Needed: denies Patient aware of ALL appt and verbalized understanding. ER UP documented in this encounter Plan of Treatment Not on file documented as of this encounter Results * (ABNORMAL) Immune deficiency profile (06/10/2019 7:32 AM LINKER UP) CD4 pct 44 31 - 64 % [facility] CD4 Absolute 164(L) 365 - 1,294 cells/mcL [facility] CD8 pct 29 12 - 40 % [facility] CD8 Absolute 110(L) 187 - 781 cells/mcL [facility] CD4/CD8 ratio 1.5 0.9 - 4.4 [facility] Blood specimen (specimen) 06/10/2019 7:32 AM LINKER UP 06/10/2019 7:41 AM LINKER UP Yohana Bowen MD LAB BLOOD ORDERABLES Final Resul t [facility] Department [place] [address] * (ABNORMAL) CBC with auto differential (06/10/2019 7:32 AM LINKER UP) WBC 4.5 3.8 - 9.9 K/cumm [facility] Hgb 11.7(L) 11.9 - 15.5 g/dL [facility] Hct 35.4(L) 35.6 - 45.5 % [facility] Plt 124(L) 150 - 400 K/cumm [facility] MPV 10.8 9.1 - 12.3 fL [facility] RBC 3.93 3.90 - 5.20 M/cumm [facility] MCV 90.1 81.3 - 96.4 fL [facility] MCH 29.8 27.1 - 33.3 pg [facility] MCHC 33.1 32.3 - 35.7 g/dL [facility] RDW CV 14.1 11.1 - 14.9 % [facility] RDW SD 46.6 35.7 - 48.1 fL [facility] NRBC abs 0.00 0.00 - 0.01 K/cumm [facility] Blood specimen (specimen) 06/10/2019 7:32 AM LINKER UP 06/10/2019 7:57 AM LINKER UP us Yohnaa Bowen MD LAB BLOOD ORDERABLES Final Resul t Performing Organization Address [facility] de Phone Number [facility] Department [place] [address] * IR PICC Line Placement > 5 Years (06/09/2019 2:40 PM LINKER UP) Anatomical Region Laterality Modality Body N/A Radio Fluoroscop y 06/09/2019 3:20 PM LINKER UP Impressions 06/09/2019 3:38 PM LINKER UP Successful nontunneled peripherally inserted catheter placement via [...] Brock Nuñez M.D. Narrative 06/09/2019 3:38 PM LINKER UP EXAMINATION: ??NONTUNNELED PERIPHERALLY INSERTED CENTRAL VENOUS CATHETER [...] was obtained. ??Prior to beginning the procedure, Lewis Protocol was used to confirm the patient's [...] was obtained. Prior to beginning the procedure, Lewis Protocol was used to confirm the patient's [...] it. Electronically signed by: Brock Nuñez M.D. Yohana Bowen MD IM IR PROCEDURES Final Result documented in this encounter Visit Diagnoses Diagnosis Neuroendocrine carcinoma (HCC)- Primary Other malignant neoplasm of unspecified site Neuroendocrine carcinoma (HCC) Other malignant neoplasm of unspecified site documented in this encounter Care Teams Site Worker Relationship Specialty Start Date End Date Julio César Briseno MD PCP - General 10/01/16 Eren Cr MD Referring Physician Medical Oncology 11/25/18 Yohana Bowen MD Radiation Oncologist Radiation Oncology 11/25/18 documented as of this encounter
--- OUTSIDE RECORDS SUMMARY | 2024-06-25 22:34 | XMS_ITS | Encounter Summary ---
Author Organization [facility] Home Care Servic es Address [address] [place] [address] Phone Care Team Providers Care Switchboard Operator Helper Name Role Phone Julio César Briseno MD Primary Care Provider [phone] Eren Cr MD Unavailable [phone] Yohana Bowen MD Unavailable Reason for Visit * Auth/Cert Specialty Diagnoses / Procedures Referred By Evelyne t Referred To Contact Referral ID Status Reason Start Date Expiration Date Visits Re quested Visits Authorized [id number] 1 1 Encounter Details Date Type Department Care Team (Latest Contact Info) Description 05/27/2019 3:00 PM KNIFE CHANGER Home Care Visit [facility] [address] [address] [address] [place] [address] Anne-Marie Goldstein OT OT INITIAL EVALUATION Social History Tobacco Use Types Packs/Day Years Used Date Smoking Tobacco: Never Smokeless Tobacco: Never Alcohol Use Standard Drinks/Week Comments Yes 1 (1 standard drink = 0.6 oz pur e alcohol) Comments No Sex and Gender Information Value Date Recorded Sex Assigned at Not on file Legal Sex Female 2:41 PM KNIFE CHANGER Gender Identity Not on file Sexual Orientation Straight 02/19/2021 9: 29 AM CDT Occupation Industry Job Start Date Job End Date retired Not on file Not on file Not on file documented as of this encounter Last Filed Vital Signs Vital Sign Reading Time Taken Comments Blood Pressure 120/62 05/27/2019 3:11 PM KNIFE CHANGER Pulse 94 05/27/2019 3:11 PM KNIFE CHANGER Temperature 37.1 ??C (98.8 ??F) 05/27/2019 3:11 PM CS T Respiratory Rate 18 05/27/2019 3:11 PM KNIFE CHANGER Oxygen Saturation 96% 05/27/2019 3:11 PM KNIFE CHANGER Inhaled Oxygen Concentration - - Weight - - Height - - Body Mass Index - - documented in this encounter Plan of Treatment Not on file documented as of this encounter Visit Diagnoses Not on filedocumented in this encounter Home Health Visit - Care Plan Visit Details Visit Type -OT Initial Evalu ation Discipline -Occupational Therapy Problems Problem Description Start Date Status Goals [...] visit during episode of care Description: Home care clinician to measure vital signs during every [...] appropriate care setting Completed Patient is homebound d/t recent abdominal surgery for a bowel obstruction and a new Colostomy and needs assistance with all ADLS and IADLS and to leave home. Monitor Vital Signs Description: Monitor blood pressure, pulse, oxygen saturation, respirations Problem:Monitor patient's vital signs every home health visit Goal:Measure vital signs during every home health visit during episode of care Completed documented in this encounter Home Health Visit - Actions and Narratives Actions Patient seen for OT eval d/t new recent hospital stay for exploratory laparotomy with creation of divided loop ileostomy. 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 Patient lives with in home with 2 steps to enter/exit. Patient and will benefit from OT for instruction on positioning and modified techniques to perform self care as she has new ostomy. Plan to see for joint visit with SN next visit in order for patient to be ind with ostomy change. documented in this encounter Care Teams Switchboard Operator Helper Relationship Specialty Start Date End Date Julio César Briseno MD PCP - General 10/01/16 Eren Cr MD Referring Physician Medical Oncology 11/25/18 Yohana Bowen MD Radiation Oncologist Radiation Oncology 11/25/18 documented as of this encounter
--- OUTSIDE RECORDS SUMMARY | 2024-06-25 22:34 | XMS_ITS | Encounter Summary ---
Author Organization [facility] [employer] [facility] Address [address] [place] [address] Phone Care Team Providers Care Forming Acid Dumper Name Role Phone Julio César Briseno MD Primary Care Provider [phone] Eren Cr MD Unavailable [phone] Yohana Bowen MD Unavailable Encounter Details Date Type Department Care Team (Late st Contact Info) Description 05/25/2019 Telephone [facility] Surgery [address] [facility] Advanced Medicine 8th [place] [address] [place] [address] Evangelina Alexandre RMA Social History Tobacco Use Types Packs/Day Years Used Date Smoking Tobacco: Never Smokeless Tobacco: Never Alcohol Use Standard Drinks/Week Comments Yes 1 (1 standard drink = 0.6 oz pur e alcohol) Comments No Sex and Gender Information Value Date Recorded Sex Assigned at Not on file Legal Sex Female 2:41 PM MECHANICAL DOOR REPAIRER Gender Identity Not on file Sexual Orientation Straight 02/19/2021 9: 29 AM CDT Occupation Industry Job Start Date Job End Date retired Not on file Not on file Not on file documented as of this encounter Miscellaneous Notes * Telephone Encounter - Evnagelina Alexandre RMA - 05/25/2019 3:53 PM CST Misa from [facility] called today to inform our office that they are going to start occupational therapy to help La. She is in need of ostomy services and care, that they think she would benefit from. She is aware Dr. Reeves will be following home health orders, and has our fax and phone number if they should need anything. She had no further questions. ANICAL DOOR REPAIRER documented in this encounter Plan of Treatment Not on file documented as of this encounter Visit Diagnoses Not on filedocumented in this encounter Care Teams Forming Acid Dumper Relationship Specialty Start Date End Date Julio César Briseno MD PCP - General 10/01/16 Eren Cr MD Referring Physician Medical Oncology 11/25/18 Yohana Bowen MD Radiation Oncologist Radiation Oncology 11/25/18 documented as of this encounter
--- OUTSIDE RECORDS SUMMARY | 2024-06-25 22:34 | XMS_ITS | Encounter Summary ---
Author Organization [facility] Address [address] [facility] [address] [place] [address] Phone Care Team Providers Care Channel Opener Name Role Phone Julio César Briseno MD Primary Care Provider Eren Cr MD Unavailable [phone] Yohana Bowen MD Unavailable Reason for Visit * Reason Comments Bowel Obstruction New Patient Ostomy Care Encounter Details Date Type Department Care Team (Late st Contact Info) Description 05/14/2019 3:00 PM JOURNEYMAN PRESS OPERATOR Office Visit [facility] Surgery [address] [facility] 2nd Floor [address] [place] [address] Greyson Reeves MD [address] [facility] [phone] [place] 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) (Primary Dx) Social History Tobacco Use Types Packs/Day Years Used Date Smoking Tobacco: Never Smokeless Tobacco: Never Alcohol Use Standard Drinks/Week Comments Yes 1 (1 standard drink = 0.6 oz pur e alcohol) Comments No Sex and Gender Information Value Date Recorded Sex Assigned at Not on file Legal Sex Female 2:41 PM JOURNEYMAN PRESS OPERATOR Gender Identity Not on file Sexual Orientation Straight 02/19/2021 9: 29 AM CDT Occupation Industry Job Start Date Job End Date retired Not on file Not on file Not on file documented as of this encounter Last Filed Vital Signs Vital Sign Reading Time Taken Comments Blood Pressure 129/61 05/14/2019 2:48 PM JOURNEYMAN PRESS OPERATOR Pulse 115 05/14/2019 2:48 PM JOURNEYMAN PRESS OPERATOR Temperature 36.6 ??C (97.9 ??F) 05/14/2019 2:48 PM CS T Respiratory Rate - - Oxygen Saturation 96% 05/14/2019 2:48 PM JOURNEYMAN PRESS OPERATOR Inhaled Oxygen Concentration - - Weight 75.1 kg (165 lb 8 oz) 05/14/2019 2:48 PM JOURNEYMAN PRESS OPERATOR Height 160 cm (5' 3 ) 05/14/2019 2:48 PM JOURNEYMAN PRESS OPERATOR Body Mass Index 29.32 05/14/2019 2:48 PM JOURNEYMAN PRESS OPERATOR documented in this encounter Progress Notes * Greyson Reeves MD - 05/14/2019 3:00 PM CST Colorectal Surgery Clinic Visit Chief Complaint: La Chung is a 68 y.o. female with chief complaint of Bowel Obstruction (New Patient) and Ostomy Care HPI: A 68-year-old woman with a history neuroendocrine tumor and peritoneal disease returns to clinic today for follow-up after a diverting colostomy for a large bowel obstruction. Her postoperativecourse has been notable for wound infection and difficulty pouching her stoma. However now she is making great progress. She has had 3 stoma changes in the last 2 weeks. Her appetite is good her energy level is improving. She has a wound VAC in place for the wound. She has seen her medical oncologist and is ready to resume her systemic therapy. Past Medical History: Diagnosis Date ??? Cancer [...] > 5 YEARS N/A 02/17/2019 ? ? PA REMOVAL OF TONSILS,<12 Y/O Tonsillectomy - (Added by TW Conv) ??? PA TOTAL ABDOM HYSTERECTOMY Hysterectomy - (Added by TW Conv) HOME MEDICATIONS : cholecalciferol (VITAMIN D-3) 2,000 unit capsule clotrimazole-betamethasone (LOTRISONE) cream coenzyme [id number] E (CO Q-10, WITH VIT E,) 100-5 mg-unit capsule DULoxetine DR (CYMBALTA) 30 mg capsule fluticasone propionate (FLONASE) 50 mcg/actuation nasal spray olmesartan-hydrochlorothiazide (BENICAR HCT) 20-12.5 mg per tablet oxybutynin (DITROPAN) 5 mg tablet oxyCODONE (ROXICODONE) 5 mg immediate release tablet pantoprazole DR (PROTONIX) 40 mg EC tablet simvastatin (ZOCOR) 20 mg tablet ascorbic acid, vitamin C, 500 mg capsule enoxaparin (LOVENOX) 40 mg/0.4 mL syringe hydrocortisone (PROCTOSOL HC) 2.5 % rectal cream montelukast (SINGULAIR) 10 mg tablet Allergies Allergen Reactions ??? Ezetimibe-Simvastatin [...] HPI and scanned media. Vitals: Vitals BP 129/61 Pulse 115 Temp 36.6 ??C (97.9 ??F) Ht 160 cm (5' 3 ) Wt 75.1 kg (165 lb 8 oz) SpO2 96% BMI 29.32 kg/m?? Physical exam: GENERAL EXAM Appearance - well developed, well nourished Orientation - alert and oriented x 3 Eyes - anicteric Ears, mouth and nose: Normal Neurologic: Non-focal motor function Pulmonary: Non-labored breathing, no audible wheezing Integumentary: No rashes Musculoskeletal: No gross bony deformities Abdomen -- Soft nontender, nondistended, no masses. Midline incision is well healed there is a small 1-2 cm opening that tracks 3-4 cm but is pink granulating and healthy. Left lower quadrant colostomy somewhat retracted with some irritation on the peristomal skin. Assessment: La Chung is a 68 y.o. 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 She will see Darling Garcia our enterostomal therapists Okay by me to resume adjuvant therapy per Dr. Cr Return to clinic in 4 weeks. Greyson Reeves MD 05/14/2019 3:25 PM NEYMAN PRESS OPERATOR documented in this encounter Plan of Treatment Not on file documented as of this encounter Visit Diagnoses Diagnosis 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)- Primary Colostomy status documented in this encounter Historical Medications * This list may reflect changes made after this encounter. Medication Sig Dispense Quantity Refills Last Filled Start D ate End Date pantoprazole DR (PROTONIX) 40 mg EC tablet 05/12/2019 01/13/2020 added in this encounter Care Teams Channel Opener Relationship Specialty Start Date End Date Julio César Briseno MD PCP - General 10/01/16 Eren Cr MD Referring Physician Medical Oncology 11/25/18 Yohana Bowen MD Radiation Oncologist Radiation Oncology 11/25/18 documented as of this encounter
--- OUTSIDE RECORDS SUMMARY | 2024-06-25 22:34 | XMS_ITS | Encounter Summary ---
Author Organization [facility] Address [address] [place] [address] Phone Care Team Providers Care Dater Assembler Name Role Phone Julio César Briseno MD Primary Care Provider Eren Cr MD Unavailable [phone] Yohana Bowen MD Unavailable Encounter Details Date Type Department Care Team (Late st Contact Info) Description 06/09/2019 Orders Only [facility] Oncology [address] [place] [address] Sabrina Willard, FOREST NURSERY SUPERVISOR [address] [place], [place] [id number] Social History Tobacco Use Types Packs/Day Years Used Date Smoking Tobacco: Never Smokeless Tobacco: Never Alcohol Use Standard Drinks/Week Comments Yes 1 (1 standard drink = 0.6 oz pur e alcohol) Comments No Sex and Gender Information Value Date Recorded Sex Assigned at Not on file Legal Sex Female 2:41 PM BENEFITS MANAGER Gender Identity Not on file Sexual Orientation Straight 02/19/2021 9: 29 AM CDT Occupation Industry Job Start Date Job End Date retired Not on file Not on file Not on file documented as of this encounter Plan of Treatment Not on file documented as of this encounter Visit Diagnoses Not on filedocumented in this encounter Care Teams Dater Assembler Relationship Specialty Start Date End Date Julio César Briseno MD PCP - General 10/01/16 Eren Cr MD Referring Physician Medical Oncology 11/25/18 Yohana Bowen MD Radiation Oncologist Radiation Oncology 11/25/18 documented as of this encounter
--- OUTSIDE RECORDS SUMMARY | 2024-06-25 22:34 | XMS_ITS | Encounter Summary ---
Author Organization [facility] Address [address] [place] [address] Care Team Providers Care Slip Mixer Name Role Phone Julio César Briseno MD Primary Care Provider [phone] Eren Cr MD Unavailable [phone] Yohana Bowen MD Unavailable Encounter Details Date Type Department Care Team (Late st Contact Info) Description 06/10/2019 Orders Only RAD ONC TREATMENTS Miscellaneous, Not In File Social History Tobacco Use Types Packs/Day Years Used Date Smoking Tobacco: Never Smokeless Tobacco: Never Alcohol Use Standard Drinks/Week Comments Yes 1 (1 standard drink = 0.6 oz pur e alcohol) Comments No Sex and Gender Information Value Date Recorded Sex Assigned at Not on file Legal Sex Female 2:41 PM BENCH GRINDER Gender Identity Not on file Sexual Orientation Straight 02/19/2021 9: 29 AM CDT Occupation Industry Job Start Date Job End Date retired Not on file Not on file Not on file documented as of this encounter Plan of Treatment Not on file documented as of this encounter Procedures Procedure Name Priority Date/Time Associated Diagnosis Comments RAD ONC ARIA SESSION SUMMARY 06/10/2019 10:05 AM BENCH GRINDER documented in this encounter Results * RAD ONC ARIA SESSION SUMMARY (06/10/2019 10:05 AM BENCH GRINDER) Course Name Lutathera ARIA Course Plan Date 12/10/2018 11:08 AM ARIA Elapsed Days 168 ARIA Course Intent Unknown ARIA Treatment Start Date 12/24/2018 ARIA Treatment Site Lutathera ARIA Dose Given To Date (cGy) 600 ARIA Session Dosage Given (cGy) 200 ARIA Plan ID Lutathera ARIA Fractions Treated 3 ARIA Prescribed Dose Per Fraction (cGy) 200 ARIA Prescribed Total Dose (cGy) 800 ARIA 06/10/2019 10:0 5 AM BENCH GRINDER us Not In File Miscellaneous RADIATION ONCOLOGY ORD ERABLES Final Result ARIA documented in this encounter Visit Diagnoses Not on filedocumented in this encounter Care Teams Slip Mixer Relationship Specialty Start Date End Date Julio César Briseno MD PCP - General 10/01/16 Eren Cr MD Referring Physician Medical Oncology 11/25/18 Yohana Bowen MD Radiation Oncologist Radiation Oncology 11/25/18 documented as of this encounter
--- OUTSIDE RECORDS SUMMARY | 2024-06-25 22:34 | XMS_ITS | Encounter Summary ---
Author Organization [facility] Care Team Providers Care Dry Cleaning Manager Name Role Phone Julio César Briseno MD Primary Care Provider [phone] Eren Cr MD Unavailable [phone] Yohana Bowen MD Unavailable Encounter Details Date Type Department Care Team (Latest Contact Info) Description 06/09/2019 Travel Social History Tobacco Use Types Packs/Day Years Used Date Smoking Tobacco: Never Smokeless Tobacco: Never Alcohol Use Standard Drinks/Week Comments Yes 1 (1 standard drink = 0.6 oz pur e alcohol) Comments No Sex and Gender Information Value Date Recorded Sex Assigned at Not on file Legal Sex Female 2:41 PM EMBRYOLOGY PROFESSOR Gender Identity Not on file Sexual Orientation Straight 02/19/2021 9: 29 AM CDT Occupation Industry Job Start Date Job End Date retired Not on file Not on file Not on file documented as of this encounter Plan of Treatment Not on file documented as of this encounter Visit Diagnoses Not on filedocumented in this encounter Care Teams Dry Cleaning Manager Relationship Specialty Start Date End Date Julio César Briseno MD PCP - General 10/01/16 Eren Cr MD Referring Physician Medical Oncology 11/25/18 Yohana Bowen MD Radiation Oncologist Radiation Oncology 11/25/18 documented as of this encounter
--- OUTSIDE RECORDS SUMMARY | 2024-06-25 22:34 | XMS_ITS | Encounter Summary ---
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) Procedures CT Chest Abdomen Pelvis W Contrast Eren Cr MD [address] [place] [address] Phone: tel: fax: [facility] [address] [place] [address] Referral ID Status Reason Start Date Expiration Date Visits Re quested Visits Authorized [id number] Closed 06/01/2019 12/10/2020 1 1 HENWHERE MAKER Reason for Visit * Diagnostic Imaging (Routine) - Closed Specialty Diagnoses / Procedures Referred By Contac t Referred To Contact Radiology Diagnoses 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) Procedures CT Chest Abdomen Pelvis W Contrast Eren Cr MD [address] [employer] [place] [address] Phone: tel: fax: [facility] [address] [facility] [place] [address] Referral ID Status Reason Start Date Expiration Date Visits Re quested Visits Authorized [id number] Closed 06/01/2019 12/10/2020 1 1 Encounter Details Date Type Department Care Team (Latest Contact Info) Description 06/09/2019 3:56 PM KITCHENWHERE MAKER - 06/09/2019 11:59 PM KITCHENWHERE MAKER Hospital Encounter [facility] [address] [place] [address] Eren Cr MD [address] [facility] [address] [place] [address] Neuro-endocrine carcinoma (CMS/HCC); Malignant neoplasm metastatic to [...] on file Legal Sex Female 2:41 PM KITCHENWHERE MAKER Gender Identity Not on file Sexual [...] capsuleIndications :supplement Take 1 tablet by mouth helicopter officer before breakfast 07/04/2016 4 cholecalciferol (VITAMIN D-3) 2,000 unit capsule Take 1 capsule (2,000 Units total) by mouth daily 30 capsule 2 04/25/2019 3 clotrimazole-betam ethasone (LOTRISONE) cream Apply 1 Application topically daily as needed (rash) 4 coenzyme [id number] E 100-5 mg-unit capsuleIndications :supplement Take 1 tablet by mouth helicopter officer before breakfast [address] (CYMBALTA) 30 [...] CONTRAST Schedule Routine, Read Routine (OP Routine) 06/09/2019 4:54 PM KITCHENWHERE MAKER 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 to liver (CMS/HCC) documented in this encounter Results * CT Chest Abdomen Pelvis W Contrast (06/09/2019 4:54 PM KITCHENWHERE MAKER) Anatomical Region Laterality Modality Body N/A Computed Tomogra phy 06/10/2019 7:15 AM KITCHENWHERE MAKER Impressions 06/10/2019 7:15 AM KITCHENWHERE MAKER 1. ??Stable disease primarily involving the peritoneum, omentum, and retroperitoneal lymph nodes as detailed. 2. ??Improving abdominal wall fluid and gas collection, now nearly completely resolved. Electronically signed by: Juan Selby M.D. Narrative 06/10/2019 7:15 AM KITCHENWHERE MAKER EXAMINATION: ??Computed tomography of the chest, abdomen and pelvis with intravenous contrast HISTORY: Neuroendocrine carcinoma restaging TECHNIQUE: ??Transaxial computed tomographic images of the chest, abdomen and pelvis were obtained with intravenous contrast according to the standard protocol after the uneventful administration of 100 mL Opti-Ray 350 intravenous contrast. COMPARISON: 04/27/[address], chest CT dated 03/23/2019 FINDINGS: ?? Again seen is a 1.0 cm right lower lobe pulmonary nodule along the right hemidiaphragm at table position -272.5. ??This is stable in size. ??5 mm likely intrafissural lymph node along the oblique fissure at table position -242.5 is also stable. ??No new pulmonary nodule or mass. ??There is no pleural effusion pneumothorax or consolidation. No axillary or supraclavicular lymphadenopathy. 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 ??There is mild esophageal wall thickening superior to this which may represent mild esophagitis related to compression. ??A left-sided peripherally inserted central catheter terminates in the superior vena cava. ??Heart size is mildly enlarged without pericardial effusion. ??There is a small hiatal hernia. ??The thoracic aorta is atherosclerotic but nonaneurysmal. Again seen is nodularity along the posterior aspect of the right hemiliver at table position -350.5. ??It measures 1.6 cm in long axis, stable. ??No new liver lesion or biliary duct dilation. ??The gallbladder is absent. ??No focal lesions identified in the adrenal glands or the pancreas. ??The spleen is normal in size. ??A large diverticulum arises from the 4th portion of the duodenum. No suspicious renal lesion or hydronephrosis. ??Dominant aorta is atherosclerotic but nonaneurysmal. ??An aortocaval lymph node that has a rounded contour and is hyperattenuating compared to skeletal muscle at table position -466.5 measures 1.4 x 1.4 cm, stable. ??Additional subcentimeter retroperitoneal and iliac chain lymph nodes are present, unchanged from prior but also suspicious for small metastases. ??There is a hyperattenuating soft tissue nodule in the right vaginal cuff at table position -618.5. ??It measures 2.4 x 1.6 cm, stable. ??There is high attenuation surrounding the distal urethra which likely represents stones within a diverticulum. ??The bladder is decompressed. Surgical changes from loop descending colostomy are noted. ??There has been interval near complete resolution of a fluid collection along the midline abdominal incision. ??Fat necrosis is again noted in the omentum and surrounding the ostomy. ??Multiple omental nodules are present compatible with metastatic disease. ??2 these can be seen in the central abdomen at table position -394.5, each measuring approximately 1 cm in size, stable. ??Multiple additional peritoneal nodules are seen along the small and large bowel, including in the left lower quadrant at table position -560.5 where there is a spiculated, 2.4 cm focus of soft tissue along the sigmoid colon. Again these findings are stable. Review of bone windows demonstrates no suspicious osseous lesion or fracture. Procedure Note Juan Selby MD - 06/10/2019 EXAMINATION: Computed tomography of the chest, abdomen [...] demonstrates no suspicious osseous lesion or fracture. IMPRESSION: 1. Stable disease primarily involving the peritoneum, omentum, and retroperitoneal lymph nodes as detailed. 2. Improving abdominal wall fluid and gas collection, now nearly completely resolved. Electronically signed by: Juan Selby M.D. 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 Flush volume based on line type, size, and protocol., Indications: Maintain Patency of Indwelling Vascular CatheterIndications:Maintain Patency of Indwelling Vascular Catheter Given 06/09/2019 4:59 PM KITCHENWHERE MAKER 50 Units Left Arm ioversol (OPTIRAY 350) syringe syringe 100 mL 100 mL, intravenous, Once in imaging, contrast, Starting on Sat06/09/19 at 1654, For 1 dose Given 06/09/2019 4:55 PM KITCHENWHERE MAKER 100 mL sodium chloride 0.9% flush 5-20 mL 5-20 mL, intra-catheter, As needed, line care, with each use, Starting on Sat06/09/19 at 1638, Flush volume based on line type, size, and protocol. Given 06/09/2019 4:59 PM KITCHENWHERE MAKER 10 mL Left Arm documented in this encounter Care Teams Resident Buyer Relationship Specialty Start Date End Date Julio César Briseno MD PCP - General 10/01/16 Eren Cr MD Referring Physician Medical Oncology 11/25/18 Yohana Bowen MD Radiation Oncologist Radiation Oncology 11/25/18 documented as of this encounter
--- OUTSIDE RECORDS SUMMARY | 2024-06-25 22:34 | XMS_ITS | Encounter Summary ---
Author Organization [facility] Address [address] [place] [address] Phone Care Team Providers Care Delivery Driver/Supervisor Name Role Phone Julio César Briseno MD Primary Care Provider [phone] Eren Cr MD Unavailable [phone] Yohana Bowen MD Unavailable Reason for Visit * Auth/Cert Specialty Diagnoses / Procedures Referred By Evelyne t Referred To Contact Referral ID Status Reason Start Date Expiration Date Visits Re quested Visits Authorized [id number] 1 1 Encounter Details Date Type Department Care Team (Late st Contact Info) Description 05/18/2019 3:00 PM WARD HELPER Home Care Visit [facility] [address] [address] [address] [place] [address] Misa Barrow RN SN HOME VISIT Social [...] Sign Reading Time Taken Comments Blood Pressure 122/68 05/18/2019 2:33 PM WARD HELPER Pulse 78 05/18/2019 2:33 PM WARD HELPER Temperature 36.6 ??C (97.8 ??F) 05/18/2019 2:33 PM CS T Respiratory Rate 16 05/18/2019 2:33 PM WARD HELPER Oxygen Saturation 96% 05/18/2019 2:33 PM WARD HELPER Inhaled Oxygen Concentration - - Weight - [...] this visit Wound Education and Management Disciplines: Residential Deficiency of cognitive information related to wound [...] visit during episode of care Description: Home ripsawyer to measure vital signs during every home health visit during episode of care. Monitor patient's vital signs every home health visit No Maintain Hydration Description: Maintain adequate hydration [...] needs assistance with all ADLS and IADLS contineus 05/18/19 Monitor Vital Signs Description: Monitor blood pressure, pulse, oxygen saturation, respirations Problem:Monitor patient's vital signs every home health visit Goal:Measure vital signs during every home health visit during episode of care Completed Assess for dehydration Description: Assess vital signs, skin turgor capillary refill and mucous membranes Problem:Risk for deficient fluid volume Goal:Maintain Hydration Completed Assess of Ostomy Healing Description: Instruct on areas of healing and what a normal stoma appearance is. Problem:Coping with disturbed body image Goal:Acceptance of Ostomy Completed Patient to see ostomy nurse on Saturday for ongoing ostomy care Educate on emptying of pouch Description: Instruct patient/caregiver to return demo of when/how to empty pouch including nighttime drainage. Problem:Knowledge Deficit - Ostomy Goal:Verbalize understanding of Ostomy Completed Instruct patient/caregiver to return demo of when/how to empty pouch including nighttime drainage.patient doing correctly Oral intake for Ostomy Description: Instruct on diet and fluid intake per Information About Your Ostomy Booklet Problem:Knowledge Deficit - Ostomy Goal:Verbalize understanding of Ostomy Completed Disposal of Dressing Description: Dispose of soiled dressing by place in bag then place in patient's trashcan. Problem:Wound Risk of Infection Goal:Knowledgeable of infection Completed Demonstration of Wound Care Description: Patient/caregiver will complete a return demonstration on wound care to SN or PT. Observed return wound care on 04/26/19 Problem:Wound Education and Management Goal:Knowledgeable on Woundcare Completed Patient/caregiver will complete a return demonstration on wound care to SN or PT. Patient demonstrates correct wound care of new damp to dry order Skilled assessment wound Description: Full wound assessment [...] Health Visit - Actions and Narratives Actions #[id number] 1 box #[id number] 1 box skin prep documented in this encounter Care Teams Delivery Driver/Supervisor Relationship Specialty Start Date End Date Julio César Briseno MD PCP - General 10/01/16 Eren Cr MD Referring Physician Medical Oncology 11/25/18 Yohana Bowen MD Radiation Oncologist Radiation Oncology 11/25/18 documented as of this encounter
--- OUTSIDE RECORDS SUMMARY | 2024-06-25 22:34 | XMS_ITS | Encounter Summary ---
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) Procedures CT Chest Abdomen Pelvis W Contrast Eren Cr MD [address] [place] [address] Phone: tel: fax: [address] [phone] Referral ID Status Reason Start Date Expiration Date Visits Re quested Visits Authorized [id number] Closed 06/01/2019 12/10/2020 1 1 INE BUILDER Encounter Details Date Type Department Care Team (Late st Contact Info) Description 06/01/2019 11:45 AM MACHINE BUILDER Office Visit [facility] 7th [place] [address] [place] [address] Eren Cr MD [address] [facility] [address] [place] [address] Neuro-endocrine carcinoma (CMS/HCC) (Primary Dx); Malignant neoplasm metastatic to liver (CMS/HCC) Social History Tobacco Use Types Packs/Day Years Used Date Smoking Tobacco: Never Smokeless Tobacco: Never Alcohol Use Standard Drinks/Week Comments Yes 1 (1 standard drink = 0.6 oz pur e alcohol) Comments No Sex and Gender Information Value Date Recorded Sex Assigned at Not on file Legal Sex Female 2:41 PM MACHINE BUILDER Gender Identity Not on file Sexual Orientation Straight 02/19/2021 9: 29 AM CDT Occupation Industry Job Start Date Job End Date retired Not on file Not on file Not on file documented as of this encounter Last Filed Vital Signs Vital Sign Reading Time Taken Comments Blood Pressure 117/73 06/01/2019 12:15 PM MACHINE BUILDER Pulse 86 06/01/2019 12:15 PM MACHINE BUILDER Temperature 36.8 ??C (98.2 ??F) 06/01/2019 1 2:15 PM MACHINE BUILDER Respiratory Rate 18 06/01/2019 12:1 5 PM MACHINE BUILDER Oxygen Saturation 98% 06/01/2019 12: 15 PM MACHINE BUILDER Inhaled Oxygen Concentration - - Weight 75.7 kg (166 lb 12.8 oz) 019 12:15 PM MACHINE BUILDER Height - - Body Mass Index 29.55 05/14/2019 2:48 PM MACHINE BUILDER documented in this encounter Progress Notes * Eren Cr Jr., MD - 06/01/2019 11:45 AM CST Images from the original note were not included. La Chung : 1950 DATE OF VISIT: 06/01/19 Cancer Staging Malignant neoplasm metastatic to liver [...] also underwent right colectomy in [facility] [place] by Dr. Greyson Reeves. Biopsy revealed [...] - Carcinoid Current day: Day 1, Cycle 16 (Planned for 06/10/2019) Following planned day: Day 1, Cycle 17 (Planned for 08/05/2019) Oncology Supportive Care: DENOSUMAB (XGEVA) INJECTION Current treatment: Treatment 2 (Planned for 04/27/2019) Following planned treatment: Treatment 3 (Planned for 05/25/2019) INTERVAL HISTORY Ms. La Chung is a 68 y.o. Non- female with a history of small bowel NEN who presents for follow-up visit aftre her recnet hospitalization for SBO. She had a diverting loop colostomy doneby Dr. Reeves 04/13/2019 and showed extensive adhesions and peritoneal disease. She was readmitted 04/27/2019 due to wound erythema and treated with antibiotics. She is tolerating her osotomy failrly well and denies any bleeding nausea, vomiting, abdominal pain. Her 3rd PRRT was delayed due to these hospitalzations. Overall, she is feeling well. She states [...] of hemorrhoids - (Added by SONIYA Conv) ??? PONV (postoperative nausea and vomiting) [...] > 5 YEARS N/A 02/17/2019 ? ? RI REMOVAL OF TONSILS,<12 Y/O Tonsillectomy - (Added by TW Conv) ??? RI TOTAL ABDOM HYSTERECTOMY Hysterectomy - (Added by [...] DAILY NEEDED, Disp: , Rfl: ??? coenzyme [id number] E (CO Q-10, WITH VIT E,) 100-5 [...] at office visit., Disp: , Rfl: ??? oxyCODONE (ROXICODONE) 5 [...] Status: ECOG 1 Vital signs: Vitals BP 117/73 (BP Location: Left arm) Pulse 86 Temp 36.8 ??C (98.2 ??F) (Oral) Resp 18 Wt 75.7 kg (166 lb 12.8 oz) SpO2 98% BMI 29.55 kg/m?? General: She is a 68 y.o. [...] organomegaly or masses palpated. Ostomy in place Extremities: No clubbing, cyanosis, or edema. Skin: No rashes or lesions. No nail changes. Neurological: No focal neurological deficits. LABORATORY: Recent Results (from the past 24 hour(s)) CBC with auto differential Collection Time: 06/01/19 10:45 AM Result Value Ref Range WBC 4.3 3.8 - 9.8 K/cumm Hgb 12.2 12.1 - 15.1 g/dL Hct 36.3 36.1 - 44.3 % Plt 132 (L) 140 - 440 K/cumm MPV 7.7 6.8 - 10.4 fL RBC 4.01 3.90 - 5.00 M/cumm MCV 90.6 80.0 - 97.6 fL MCH 30.5 26.7 - 33.7 pg MCHC 33.7 32.7 - 35.5 g/dL RDW CV 15.8 (H) 11.8 - 14.6 % NRBC abs 0.00 0.00 - 0.01 K/cumm Differential, auto Collection Time: 06/01/19 10:45 AM Result Value Ref Range Neutrophil abs 3.2 1.8 - 6.6 K/cumm Lymphocyte abs 0.5 (L) 1.2 - 3.3 K/cumm Monocyte abs 0.5 0.2 - 1.2 K/cumm Eosinophil abs 0.1 0.0 - 0.5 K/cumm Basophil abs 0.0 0.0 - 0.2 K/cumm Neutrophil pct 73.5 % Lymphocyte pct 10.6 % Monocyte pct 12.8 % Eosinophil pct 2.5 % Basophil pct 0.6 % Comprehensive metabolic panel Collection Time: 06/01/19 10:46 AM Result Value Ref Range Sodium 142 135 - 145 mmol/L Potassium, pl 4.3 3.3 - 4.9 mmol/L Chloride 109 97 - 110 mmol/L CO2 28 22 - 32 mmol/L Anion gap 6 2 - 15 mmol/L BUN 11 8 - 25 mg/dL Creatinine 0.81 0.60 - 1.10 mg/dL Glucose 123 70 - 199 mg/dL Calcium 10.4 (H) 8.5 - 10.3 mg/dL Bilirubin, total 0.4 0.1 - 1.2 mg/dL Protein, pl 6.7 6.5 - 8.5 g/dL Albumin 4.0 3.5 - 5.0 g/dL Alk phos 78 40 - 130 Units/L ALT 14 7 - 45 Units/L AST 19 10 - 45 Units/L Hematology Lab History Some values may be hidden. Unless noted otherwise, only the newest values recorded on each date aredisplayed. Labs - Hematology Latest Ref Range 04/29/19 04/30/19 05/03/19 06/01/19 WBC 3.8 - 9.8 K/cumm 6.0 4.5 8.6 4.3 Total Hb, POC 12.1 - 15.1 g/dL 8.6 (A) 8.9 (A) 11.3 (A) 12.2 Hct 36.1 - 44.3 % 26.0 (A) 27.7 (A) 35.5 (A) 36.3 Plt 140 - 440 K/cumm 220 249 432 (A) 132 (A) Neutrophil abs 1.8 - 6.6 K/cumm 3.3 5.6 3.2 (A) Abnormal value Comments are available for some flowsheets but are not being displayed. Chem/LFT Lab History Some values may be hidden. Unless noted otherwise, only the newest values recorded on each date aredisplayed. Labs-Chem/LFT Latest Ref Range 04/30/19 05/01/19 05/03/19 06/01/19 Sodium 135 - 145 mmol/L 136 137 139 142 Creatinine 0.60 - 1.10 mg/dL 0.70 0.67 0.60 0.81 Bilirubin, total 0.1 - 1.2 mg/dL 0.4 AST 10 - 45 Units/L 19 ALT 7 - 45 Units/L 14 CrCl- Actual Body Weight (Cockcroft-Gault) 96.4 100.7 112.5 77.2 Tumor Marker History Some values may be hidden. Unless noted otherwise, only the newest values recorded on each date aredisplayed. Tumor Markers Latest Ref Range 12/29/18 03/02/19 03/30/19 04/14/19 Chromogranin A <93 ng/mL 203 (A) 232 (A) 203 (A) Troponin I 0.00 - 0.03 ng/mL <0.03 Some values recorded on this date have been omitted. (A) Abnormal value Comments are available for some flowsheets but are not being displayed. IMAGES IMPRESSION: 1. Interval postsurgical changes of divided [...] who presents for routine oncologic care. She is due for another PRRT next week. . Since her scans showed the phlegmon, will need to reassess this next week and decide if PRRT needs to be held or not if this is still an issue. As such we will plan on having La Chung return in 4 weeks with labs. All of her questions wereanswered. She understands and was in agreement with the plan of care. She knows to call the office in the interim with any symptoms, questions, or concerns. INE BUILDER documented in this encounter Plan of Treatment Not on file documented as of this encounter Results * (ABNORMAL) CBC with auto differential (07/20/2019 10:52 AM MACHINE BUILDER) WBC 3.7(L) 3.8 - 9.8 K/cumm [facility] Comment:Testing performed by : [facility], [address] [place] [phone] Hgb 13.0 12.1 - 15.1 g/dL JASON BJ Comment:Testing performed by : [facility], [address] [place] [phone] Hct 37.7 36.1 - 44.3 % CERMINNIE BJ Comment:Testing performed by : [facility], [address] [place] [phone] Plt 100(L) 140 - 440 K/cumm CERMINNIE BJ Comment:Testing performed by : [address] [phone] MPV 7.5 6.8 - 10.4 fL CERMINNIE BJ Comment:Testing performed by : [address] [phone] RBC 4.28 3.90 - 5.00 M/cumm JASON BJ Comment:Testing performed by : [facility], [address] [place] [phone] MCV 88.1 80.0 - 97.6 fL [facility] Comment:Testing performed by : [facility], [address] [place] [phone] MCH 30.4 26.7 - 33.7 pg JASON BLACK Comment:Testing performed by : [facility], [address] [place] [phone] MCHC 34.5 32.7 - 35.5 g/dL JASON BLACK Comment:Testing performed by : [facility], [address] [place] [phone] RDW CV 14.0 11.8 - 14.6 % [facility] Comment:Testing performed by : [facility], [address] [place] [phone] NRBC abs 0.02(H) 0.00 - 0.01 K/cumm JASON BLACK Comment:Testing performed by : [facility], [address] [place] [phone] Blood specimen (specimen) 07/20/2019 10:52 AM MACHINE BUILDER 07/20/2019 10:55 AM MACHINE BUILDER us Eren Cr MD LAB BLOOD ORDERABLES Final Re sult [facility] Department [place] [address] * (ABNORMAL) Chromogranin A (07/20/2019 10:49 AM MACHINE BUILDER) Chromogranin A 234(H) <93 ng/mL JASON BLACK Comment: Impaired renal [...] absence of malignant disease. Test Performed by: [facility] [address] [place] [address] [employer] Consultant: Immanuel Novak M.D. Ph.D.; IA# [id number] Blood specimen (specimen) 07/20/2019 10:49 AM MACHINE BUILDER 07/20/2019 11:17 AM MACHINE BUILDER us Eren Cr MD LAB BLOOD ORDERABLES Final Re sult [facility] Department [place] [address] * (ABNORMAL) Comprehensive metabolic panel (07/20/2019 10:49 AM MACHINE BUILDER) Sodium 143 135 - 145 mmol/L [facility] Potassium, pl 4.9 3.3 - 4.9 mmol/L [facility] Chloride 110 97 - 110 mmol/L [facility] CO2 29 22 - 32 mmol/L [facility] Anion gap 4 2 - 15 mmol/L [facility] BUN 13 8 - 25 mg/dL [facility] Creatinine 0.89 0.60 - 1.10 mg/dL [facility] Glucose 109 70 - 199 mg/dL [facility] [...] 2017. Calcium 10.5(H) 8.5 - 10.3 mg/dL [facility] Bilirubin, total 0.7 0.1 - 1.2 mg/dL [facility] Protein, pl 6.8 6.5 - 8.5 g/dL [facility] Albumin 4.1 3.5 - 5.0 g/dL [facility] Alk phos 78 40 - 130 Units/L [facility] ALT 18 7 - 45 Units/L [facility] AST 30 10 - 45 Units/L [facility] Blood specimen (specimen) 07/20/2019 10:49 AM MACHINE BUILDER 07/20/2019 11:02 AM MACHINE BUILDER us Eren Cr MD LAB BLOOD ORDERABLES Final Re sult [facility] Department [place] [address] * CT Chest Abdomen Pelvis W Contrast (06/09/2019 4:54 PM MACHINE BUILDER) Anatomical Region Laterality Modality Body N/A Computed Tomogra phy 06/10/2019 7:15 AM MACHINE BUILDER Impressions 06/10/2019 7:15 AM MACHINE BUILDER 1. ??Stable disease primarily involving the peritoneum, omentum, and retroperitoneal lymph nodes as detailed. 2. ??Improving abdominal wall fluid and gas collection, now nearly completely resolved. Electronically signed by: Juan Selby M.D. Narrative 06/10/2019 7:15 AM MACHINE BUILDER EXAMINATION: ??Computed tomography of the chest, abdomen [...] to liver (HCC) documented in this encounter Discontinued Medications Medication Sig Discontinue Reason Start Date End Da te pantoprazole DR (PROTONIX) 40 mg EC tablet pantoprazole 40 mg tablet,delayed release TAKE 1 TABLET BY MOUTH EVERY DAY Duplicate order 06/01/[address] (CYMBALTA) 30 mg capsule duloxetine 30 mg capsule,delayed release Duplicate order 06/01/2019 documented as of this encounter Historical Medications * This list may reflect changes made after this encounter. DULoxetine DR (CYMBALTA) 30 mg capsule duloxetine 30 mg capsule,delayed release [address] (PROTONIX) 40 mg EC tablet pantoprazole 40 mg tablet,delayed release TAKE 1 TABLET BY MOUTH EVERY DAY 9 added in this encounter Orders Appointment Requests Count Last Ordered Date Fi rst Ordered Date [facility] CLINIC APPOINTMENT REQUEST 1 020 [facility] LAB APPOINTMENT 1 07/20/2019 documented in this encounter Care Teams Stave Bolt Equalizer Relationship Specialty Start Date End Date Julio César Briseno MD PCP - General 10/01/16 Eren Cr MD Referring Physician Medical Oncology 11/25/18 Yohana Bowen MD Radiation Oncologist Radiation Oncology 11/25/18 documented as of this encounter
--- OUTSIDE RECORDS SUMMARY | 2024-06-25 22:35 | XMS_ITS | Encounter Summary ---
Author Organization [facility] Address [address] [place] [address] Care Team Providers Care Superintendent [employer] Name Role Phone Julio César Briseno MD Primary Care Provider Eren Cr MD Unavailable [phone] Yohana Bowen MD Unavailable Encounter Details Date Type Department Care Team (Late st Contact Info) Description 04/13/2019 3:24 PM CDT Anesthesia Event Operating Room 1 [place] [id number] Shawn Green MD [address] [facility] [address] [place] [address] Maggy Aguilar NP [address] [facility] [address] [id number] [place] [address] Anesthesia Record Procedure Summary Procedure Name Responsible Anesthesiologist Anesthesia Start Time Anesthesia Stop Time EXPLORATORY LAPAROTOMY (Abdomen) Shawn Green MD 04/13/19 1524 04/13/19 1851 Events Date Time Event Comment 04/13/2019 1523 In Room 1524 An Start 1524 An Start Data 1537 An Induction The patient was reevaluated immediately before moderate or deep sedation use and before anesthesia induction. 1538 An Intubation 1546 Proc Start 1549 Anesthesia Ready 1718 an jason now 1824 Quick Note Surgeon leaning on cuff-artifactual reading 1829 Proc Fin 1838 An Extubation 1841 an stop data 184 Out of Room 1850 Handoff to RN I completed my handoff [...] disposition at the time of handoff: PACU 1850 An Stop Meds Name Total midazolam PF 1 mg/mL 2 mg epinePHRINE 1:200,000-lidocaine 1.5 % 3 mL fentaNYL 100 mcg propofol 150 mg rocuronium 40 mg succinylcholine 100 mg phenylephrine 100 mcg/mL 600 mcg ePHEDrine 25 mg HYDROmorphone 2 mg/mL 2 mg glycopyrrolate 0.7 mg neostigmine injection 1 mg/mL 4 mg ertapenem 1,000 mg phenylephrine infusion 4.52 mg bupivacaine (MARCAINE) 10 mL in sodium c hloride 0.9% 20 mL epidural 18.33 mL dexamethasone 4 mg/mL 4 mg ondansetron (ZOFRAN) injection 4 mg 4 mg LR 1,000 mL sodium chloride 0.9% infusion 1,000 mL * Agents Name O2% N2O O2 Air Sevoflurane Inspired Sevoflurane * Blood No blood administrations on file. Lines, Drains, and Airways Type Details Placement Removal Colostomy Retired 04/13/19; 182; End; RLQ 04/13/19 182 by Thais Julio RN Peripheral IV Placement Date: 04/11/19; Existing LDA Placed by: Other hospital; Change Due: 04/15/19; Catheter Size: 20 G; Orientation: Right; Location: Antecubital; Removal Date: 04/17/19 04/11/19 0000 by Neto Engle RN 04/17/19 0000 by Penelope Cormier NP NG/OG Tube Placement Date: 04/11/19; Existing LDA Placed by: Other hospital; Type: Nasogastric; Size: 18 Fr; Location: Right nostril; Removal Date: 04/16/19 04/11/19 0000 by Neto Engle RN 04/16/19 0000 by Huy Blanco Epidural Catheter Placement Date: 04/13/19; 04/24/19; 1517 04/13/19 0000 by Karma Frances RN 04/24/19 151 by Nichole Nash RN Urethral Catheter Placement Date: 04/13/19; Placement Time: 153; Inserted by: Maria Isabel Benito RN; Type: Non-latex; Size: 16 Fr.; Balloon Size: 10 mL; Urine Returned: Yes; Removal Date: 04/16/19 04/13/19 1535 by Adelita Barba RN 04/16/19 0000 by Huy Blanco RETIRED Surgical Site 04/13/19; 1555; Abdomen; wound/ostomy following last assessment 04/28/19; 06/09/24 (Retired LDA, Removed/Completed by [facility] with LDA Utility); 1213 (Retired LDA, Removed/Completed by [facility] with LDA Utility) 04/13/19 1555 by Adelita Barba RN 06/09/24 1213 by Discharge Provider, Automatic ETT Placement Date: 04/13/19; Placement Time: 155 (created via procedure documentation); Mask Ventilation: 0; Technique: Direct laryngoscopy; Type: ETT - single; Single Lumen Tube Size: 7 mm; Cuffed: Yes; Laryngoscope: Luba; Blade Size: 3; Location: Oral; Grade View: Grade I; Insertion Attempts: 1; Placement Verification: Auscultation, Capnometry; Airway Comment: No gastric contents noted in back of throat RSI; Removal Date: 04/13/19; Removal Time: 18404/13/19 155 by Dm Richardson, TITLE CLOSER 04/13/19 184 by Janeen Weston CRNA Peripheral IV Placement Date: 04/13/19; Placement Time: 155 (created via procedure documentation); Catheter Size: 18 G; Orientation: Left; Location: Hand; Site Prep: Alcohol; Insertion Attempts: 1; Removal Date: 04/14/19 04/13/19 1558 by Dm Richardson, TITLE CLOSER 04/14/19 0000 by Nica Smith RN documented in this encounter Social History Tobacco Use Types Packs/Day Years Used Date Smoking Tobacco: Never Smokeless Tobacco: Never Alcohol Use Standard Drinks/Week Comments Yes 1 (1 standard drink = 0.6 oz pur e alcohol) Comments No Sex and Gender Information Value Date Recorded Sex Assigned at Not on file 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 Gender Identity Not on file Sexual Orientation Straight 02/19/2021 9: 29 AM CDT Occupation Industry Job Start Date Job End Date retired Not on file Not on file Not on file documented as of this encounter OR Notes * Anesthesia Postprocedure Evaluation - Thong Abraham MD - 04/13/2019 8:27 PM CDT Patient: La Chung Procedure Summary Date: 04/13/19 Room / Location: [facility] OR POD 1 ROOM 331 / [facility] OR POD 1 Anesthesia Start: 1524 Anesthesia Stop: 1850 Procedures: EXPLORATORY LAPAROTOMY (N/A Abdomen) COLOSTOMY (N/A Abdomen) Diagnosis: Large bowel obstruction (CMS/HCC) (Large bowel obstruction (CMS/HCC) [K56.609]) Surgeon: Greyson Reeves MD Responsible Provider: Shawn Green MD Anesthesia Type: general ASA Status: 3 Anesthesia Type: general Last vitals BP 104/80 Pulse 105 Temp 36.6 ??C (97.9 ??F) (Temporal) Resp 15 SpO2 98% Anesthesia Post Evaluation Patient location during evaluation: PACU Patient participation: complete - patient participated Level of consciousness: fully awake Pain score: 4 Pain management: adequate Airway patency: adequate Evidence of recall: no Anesthetic complications: no Cardiovascular status: hemodynamically stable Respiratory status: acceptable and nasal cannula Hydration status: acceptable Pt is: normothermic Nausea/Vomiting status: none * Anesthesia Procedure Notes - Dm Richardson CRNA - 04/13/2019 3:57 PM CDTAssociated Order(s): Peripheral IV Catheter Peripheral IV Catheter Patient location: OR Preprocedure prep: Prep solution: alcohol PPE: gloves and provider hat/mask PIV line: Laterality: left Site: hand Catheter size: 18 g Technique: direct visualization Procedure details: good blood return and occlusive dressing applied Number of attempts: 1 Assessment: Events: patient tolerated procedure well with no complications * Anesthesia Procedure Notes - Dm Richardson CRNA - 04/13/2019 3:55 PM CDTAssociated Order(s): Airway Airway Patient location: OR Urgency: elective Indications for airway management: anesthesia and airway protection Difficult airway: no Emergent airway documentation: Risks and benefits discussed: yes Consent obtained: yes Consent given by: patient Airway prep: Preoxygenated: no Patient position: sniffing Mask difficulty assessment: 0 - not attempted Spontaneous ventilation during airway: absent Sedation level during airway: GA Final airway details: Final airway type: endotracheal airway Tube type: ETT ETT size: 7.0 mm Cuffed: yes Technique used for successful ETT placement: direct laryngoscopy Devices/Methods used in placement: intubating stylet and cricoid pressure Insertion site: oral Blade type: Luba Blade size: 3 Cormack-Lehane (direct): grade I - full view of glottis Cuff inflated with: saline Placement verified by: auscultation and CO2 detection Airway secured with: silk tape Number of attempts: 1no Additional comments: No gastric contents noted in back of throat RSI * Anesthesia Preprocedure Evaluation - Shawn Green MD - 04/13/2019 8:19 AM CDT Images from the original note were not included. [facility] Preoperative Assessment and Planning Preoperative Evaluation Record Inpatient Preoperative Evaluation ([facility]) Date: 04/13/19 Anesthesia Evaluation Procedure(s): EXPLORATORY LAPAROTOMY COLOSTOMY RESECTION SMALL BOWEL Pre-Op Diagnosis Codes: * Large bowel obstruction (CMS/HCC) [K56.609] HISTORY HPI La Chung is a 68 y.o. 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 Currently on peptide receptor radionuclide therapy, PRN octreotide, now admitted due to bowel obstruction. Past Medical History Information obtained from: patient and chart. Neurological + Psychiatric history - anxiety Pertinent negatives: seizures; CVA/stroke and TIA Cardiovascular + Hypertension + Hyperlipidemia + CAD Pertinent negatives: PA ; valvular heart disease; atrial fibrillation; arrhythmia; [...] renal disease Musculoskeletal/Pain + Chronic pain (abdominal cramping) + Headaches (occasional preop r/t anxiety/being NPO) [...] On short acting octreotide PRN for sx of mild flatulence. malignancy-induced hypercalcemia hx. Most recent Ca 8.0 Functional Capacity Functional capacity: <4 METs Comments: Stable mild MARTINEZ when climbing flight of stairs. Was recently able to mow yard and paint agarage w/o sx. Denies episodes of CP Review of Systems + productive cough (occasional r/t allergies) + chest pain (currently r/t NG tube (throat, chest - constant. Exacerbated by swallowing). NO pain prior to NG tube. ) + previous transfusion (w/ prior surgery 09/2015) + dizziness (occasional w/ quick position changes, allergic rhinitis) + chronic pain (abdominal cramping) + nausea/vomiting (prior to admission) + diarrhea (prior to onset of bowel obstruction) + abdominal pain + unexpected wt change Patient's weight: decreased, 4 lbs, Pertinent negatives: wheezing; SOB; recent cold/flu; fever; palpitations; orthopnea; pedal edema; PND; heavy menses; transfusion reaction; melena/hematochezia; easy bruising; bleeding problems; syncope; hard of hearing; vision loss; heartburn; dysphagia; dentures/partials; chipped/loose teeth and diaphoresis Comments: + intermittent flushing episodes - last occured 04/10 - lasted approx 30 seconds. Took 1 dose octreotide 04/10 and had increased salivation and episode vomiting after. Also has sx of intermittent cramping and diarrhea (5-6 episodes daily) - octreotide helps relieve symptoms. PAT Summary and Plans Cardiac risk classification of planned procedure: intermediate cardiac risk. Initial preoperative evaluation discussed with: Petros Veras MD Additional comments: La Chung is a 68 y.o. female who is being evaluated prior to undergoing an intermediate cardiac risk surgery. Revised Cardiac Risk Index factors are (none) for a total RCRI of 0 out of 6. Functional capacity is <4 METs (specifically: Stable mild MARTINEZ when climbing flightof stairs. Was recently able to mow yard and paint a garage w/o sx. Denies episodes of CP). >>>Neuroendocrine tumor w/ PRN octreotide use <<<< Takes PRN doses for intermit tent flushing episodes - last occured 04/10 - lasted approx 30 seconds. Also has sx of intermittent cramping and diarrhea (5-6 episodes daily) - octreotide helps relieve these symptoms as well. Last dose of octreotide 04/10 and had increased salivation and episode vomiting after. Last chromogranin A level 203 03/30/2019 (prev. 232). >>> FAMILY HISTORY OF MALIGNANT HYPERTHERMIA <<<< - questionable episode in juan josé rosason . Patient and her daughter denies any history of anesthesia or surgery problems except for PONV. Pt expresses interest in epidural for pain control as had success w/ this post- op in the past Med list reviewed - notable for enoxaparin (LOVENOX) 40mg SC daily for PPx. Last dose per Sep 2130. Obstructive sleep apnea (KYLER) screening status is STOP-Bang=3 with bicarbonate < 28 suggesting moderate risk for KYLER. Blood bank needs for day of procedure: Type and Screen only Pending labs/tests include: No additional indicated. Recent CBC, BMP, coags, T&S reviewed and w/o concerning findings. Last CMP unremarkable. DPAP evaluation complete. Preoperative evaluation performed by Maggy Aguilar NP on 04/13/19 at 0908 AM. . ANESTHESIA HISTORY: Pt w/ hx PONV; + FAMILY HISTORY OF MALIGNANT HYPERTHERMIA - questionable episode in grandson Patient Active Problem List Diagnosis ??? Neuroendocrine carcinoma (CMS/HCC) ??? 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 Neuro-endocrine carcinoma (CMS/HCC) ??? Bone metastasis (CMS/HCC) ??? Large bowel obstruction (CMS/HCC) Past Medical History: Diagnosis Date ??? Cancer (CMS/HCC) ??? Family history of malignant hyperthermia grandson - questionable ??? Hypercholesteremia ??? Hypertension ??? Motion sickness [...] > 5 YEARS N/A 02/17/2019 ? ? HI REMOVAL OF TONSILS,<12 Y/O Tonsillectomy - (Added by TW Conv) ??? HI TOTAL ABDOM HYSTERECTOMY Hysterectomy - (Added by TW Conv) OB History 6 Para 4 Term 4 0 AB 2 Living 4 SAB 2 TAB Ectopic Multiple Live Births Allergies Allergen Reactions ??? Ezetimibe-Simvastatin Muscle pain and Unknown Muscle weakness ??? Ramipril Cough Med List Status: Provider Complete Set By: Chalino Mo MD at 04/12/2019 1:30 AM Taking? Last Dose Start Date End Date Provider ascorbic acid, vitamin C, 500 mg capsule More than a month 07/04/16 -- Historical Provider, cholecalciferol (VITAMIN D-3) 5,000 unit tablet More than a month -- -- Historical Provider, cholestyramine (QUESTRAN) 4 gram packet More than a month -- -- Historical Provider, clotrimazole-betamethasone (LOTRISONE) cream More than a month -- -- Historical Provider, coenzyme [id number] E (CO Q-10, WITH VIT E,) 100-5 mg-unit capsule More than a month -- -- Historical Provider, diphenoxylate-atropine (LOMOTIL) 2.5-0.025 mg per tablet More than a month 03/02/19 -- Eren Cr Jr., MD Take 1 tablet by mouth 4 (four) times a day as needed for diarrhea DULoxetine (DENISMBALTA) 30 mg capsule Past Week -- -- Historical Provider, ergocalciferol (VITAMIN D) 50,000 unit capsule Past Week -- -- Historical Provider, fluticasone propionate (FLONASE) 50 mcg/actuation nasal spray More than a month -- -- Historical Provider, hydrocortisone (PROCTOSOL HC) 2.5 % rectal cream More than a month -- -- Historical Provider, montelukast (SINGULAIR) 10 mg tablet More than a month -- -- Historical Provider, MYRBETRIQ 50 mg tablet extended release 24 hr Past Week 09/29/18 -- Historical Provider, octreotide (SandoSTATIN) 100 mcg/mL (1 mL) syringe 04/11/2019 01/19/19 -- Eren Cr Jr., MD Inject 1 mL (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) under the skin 3 (three) times a day as needed (flushing, cramping, diarrhea) olmesartan-hydrochlorothiazide (BENICAR HCT) 20-12.5 mg per tablet Past Week -- -- Historical Provider, simvastatin (ZOCOR) 20 mg tablet Past Week -- -- Historical Provider, Current Facility-Administered Medications: ??? dextrose 5% and sodium chloride 0.45% infusion (premix), 100 mL/hr, intravenous, Continuous, Last Rate: 100 mL/hr at 04/12/191731, 100 mL/hr at 04/12/191731 ??? [Held by Provider] DULoxetine (CYMBALTA) extended release capsule 30 mg, 30 mg, oral, Daily ??? enoxaparin (LOVENOX) syringe 40 mg, 40 mg, subcutaneous, Daily-2100, 40 mg at 04/12/192136 ??? HYDROmorphone (DILAUDID) injection 0.2 mg, 0.2 mg, intravenous, Q2H PRN, 0.2 mg at 04/13/19 0852 ??? [Held by Provider] mirabegron ER (MYRBETRIQ) extended release tablet 50 mg, 50 mg, oral, Daily ??? ondansetron (ZOFRAN) injection 4 mg, 4 mg, intravenous, Q6H PRN ??? simvastatin (ZOCOR) tablet 20 mg, 20 mg, feeding tube, Nightly ??? sodium chloride 0.9% flush 0.5-20 mL, 0.5-20 mL, intra-catheter, Q8H MAUREEN, 10 mL at 04/12/19 1513 ??? sodium chloride 0.9% flush 0.5-20 mL, 0.5-20 mL, intra-catheter, PRN ??? sodium chloride 0.9% flush 0.5-20 mL, 0.5-20 mL, intra-catheter, PRN Social History Tobacco Use Smoking Status Never Smoker Smokeless Tobacco Never Used Substance and Sexual Activity Alcohol Use Yes ??? Alcohol/week: 0.6 oz ??? Types: 1 Shots of liquor per week Substance and Sexual Activity Drug Use No Family History Problem Relation Age of Onset ??? Breast cancer Sister Adenocarcinoma of breast - (Added by TW Conv) ??? Suicidality Father Family history of suicide - (Added by TW Conv) ??? Other (old age) Mother PAT Physical Exam Airway Exam: Mallampati: III Cervical ROM: FROM TM distance: 3 Jaw ROM: full Cardiovascular Exam: Rate: regular Rhythm: regular Negative for Murmur Negative for peripheral edema Pulmonary Exam: LCTA, bilat EENT Exam: trachea midline Dental Exam: Appears intact Skin Exam: Skin is warm and dry. Current state: Patient's current state is cooperative and anxious. Line/Drains/Tubes/Devices: GI drains/tubes in place: NG tube Vitals: 04/12/19 1942 04/13/19 0555 04/13/19 0710 BP: 116/56 145/59 142/59 Pulse: 84 87 90 Resp: 18 18 17 Temp: 36.8 ??C (98.2 ??F) 37.3 ??C (99.1 ??F) 36.7 ??C (98.1 ??F) SpO2: 94% 95% 93% PT: 04/12/2019: 11.3 sec INR: 04/12/2019: 1.05 APTT: 04/12/2019: 26.3 sec Hgb A1C: No results found for requested labs within last 720 hours. CBC RBC: 04/12/2019: 4.49 M/cumm RDW: No results found for requested labs within last 720 hours. MCHC: 04/12/2019: 33.3 g/dL MCH: 04/12/2019: 30.3 pg MCV: 04/12/2019: 91.1 fL Hct: 04/12/2019: 40.9 % Hgb: 04/12/2019: 13.6 g/dL WBC: 04/12/2019: 5.0 K/cumm MPV: 04/12/2019: 10.3 fL Platelets: 04/12/2019: 130 K/cumm* RDW CV: 04/12/2019: 14.3 % RDW Sd: 04/12/2019: 46.8 fL BMP Glucose: 04/12/2019: 155 mg/dL Calcium: 04/12/2019: 8.0 mg/dL* Sodium: 04/12/2019: 139 mmol/L Potassium: 04/12/2019: 3.9 mmol/L CO2: 04/12/2019: 24 mmol/L Chloride: 04/12/2019: 108 mmol/L BUN: 04/12/2019: 16 mg/dL Creatinine: 04/12/2019: 0.83 mg/dL DOS Physical Exam Medical history, medications, and allergies reviewed. Attestation: This PAT evaluation Airway Exam: Mallampati: III Cervical ROM: FROM TM distance: 3 Jaw ROM: full Cardiovascular Exam: Rate: regular Rhythm: regular Pulmonary Exam: LCTA EENT Exam: trachea midline Dental Exam: Appears intact Skin Exam: Skin is warm. Abdominal Exam: Abdomen is tender. Current state: Patient's current state is cooperative and interactive. Anesthesia Plan ASA 3 My patient is approved for the Anesthesia Controlled Medication protocol when under care of a TITLE CLOSER Planned anesthesia: General Informed Consent: Discussed plan with TITLE CLOSER. Anesthesia plan and risks discussed with patient and spouse. Plan and Consent Comments: Discussed risks, benefits, alternatives to general anesthesia including damage to oral/oropharyngeal structures, PONV, pain, need for prolonged postoperative ventilation, serious or even fatal cardiopulmonary or other complications. All questions answered to patient's satisfaction. Consent and Attending signature: I and/or my designee have discussed the anesthesia plan, benefits, possible alternatives, parental presence at time of induction (if indicated), and clinically relevant risks that may include dental injury, unintentional awareness, and/or other complications. The patient and/or parent/legal guardian understand, and agree to proceed. All questions answered. documented in this encounter Plan of Treatment Not on file documented as of this encounter Procedures Procedure Name Priority Date/Time Associated Diagnosis Comments HI AN PROCEDURE PLACEHOLDER Routine 04/13/2019 3:57 PM CDT Procedure Note - Dm Richardson CRNA - 04/13/2019 3:57 PM CDTThis note is in progress. Peripheral IV Catheter Patient location: OR Preprocedure prep: Prep solution: alcohol PPE: gloves and provider hat/mask PIV line: Laterality: left Site: hand Catheter size: 18 g Technique: direct visualization Procedure details: good blood return and occlusive dressing applied Number of attempts: 1 Assessment: Events: patient tolerated procedure well with no complications HI AN PROCEDURE PLACEHOLDER Routine 04/13/2019 3:55 PM CDT Procedure Note - Dm Richardson CRNA - 04/13/2019 3:55 PM CDTThis note is in progress. Airway Patient location: OR Urgency: elective Indications for airway management: anesthesia and airway protection Difficult airway: no Emergent airway documentation: Risks and benefits discussed: yes Consent obtained: yes Consent given by: patient Airway prep: Preoxygenated: no Patient position: sniffing Mask difficulty assessment: 0 - not attempted Spontaneous ventilation during airway: absent Sedation level during airway: GA Final airway details: Final airway type: endotracheal airway Tube type: ETT ETT size: 7.0 mm Cuffed: yes Technique used for successful ETT placement: direct laryngoscopy Devices/Methods used in placement: intubating stylet and cricoidpressure Insertion site: oral Blade type: Luba Blade size: 3 Cormack-Lehane (direct): grade I - full view of glottis Cuff inflated with: saline Placement verified by: auscultation and CO2 detection Airway secured with: silk tape Number of attempts: 1no Additional comments: No gastric contents noted in back of throat RSI HI AN ELECTIVE ENDOTRACHEAL AIRWAY Routine 04/13/2019 3:55 PM CDT Procedure Note - Dm Richardson CRNA - 04/13/2019 3:55 PM CDTThis note is in progress. Airway Patient location: OR Urgency: elective Indications for airway management: anesthesia and airway protection Difficult airway: no Emergent airway documentation: Risks and benefits discussed: yes Consent obtained: yes Consent given by: patient Airway prep: Preoxygenated: no Patient position: sniffing Mask difficulty assessment: 0 - not attempted Spontaneous ventilation during airway: absent Sedation level during airway: GA Final airway details: Final airway type: endotracheal airway Tube type: ETT ETT size: 7.0 mm Cuffed: yes Technique used for successful ETT placement: direct laryngoscopy Devices/Methods used in placement: intubating stylet and cricoidpressure Insertion site: oral Blade type: Luba Blade size: 3 Cormack-Lehane (direct): grade I - full view of glottis Cuff inflated with: saline Placement verified by: auscultation and CO2 detection Airway secured with: silk tape Number of attempts: 1no Additional comments: No gastric contents noted in back of throat RSI documented in this encounter Visit Diagnoses Not on filedocumented in this encounter Administered Medications Inactive Administered Medications - up to 3 most recent administrations Medication Order MAR Action Action Date Dose Rate Site bupivacaine (MARCAINE) 10 mL in sodium chloride 0.9% 20 mL epidural Continuous PRN, Starting on Sat04/13/19 at 1606, Anesthesia Intra-op Rate/Dose Change 04/13/2019 5:01 PM CDT 7 mL/hr 7 mL/hr New Bag 04/13/2019 4:06 PM CDT 6 mL/hr 6 mL/hr dexamethasone (DECADRON) 4 mg/mL injection Administer over 2 Minutes, As needed, Starting on Sat04/13/19 at 1607, Anesthesia Intra-op Given 04/13/2019 4:07 PM CDT 4 mg ePHEDrine injection intravenous, Administer over 5 Minutes, As needed, Starting on Sat04/13/19 at 1544, Anesthesia Intra-op Given 04/13/2019 4:22 PM CDT 10 mg Given 04/13/2019 3:44 PM CDT 15 mg ertapenem (INVanz) injection As needed, Starting on Sat04/13/19 at 1541, Anesthesia Intra-op Given 04/13/2019 3:41 PM CDT 1,000 mg fentaNYL (SUBLIMAZE) preservative free injection intravenous, As needed, Starting on Sat04/13/19 at 1559, Anesthesia Intra-op Given 04/13/2019 3:59 PM CDT 100 mcg glycopyrrolate (ROBINUL) injection intravenous, Administer over 1 Minutes, As needed, Starting on Sat04/13/19 at 1819, Anesthesia Intra-op Given 04/13/2019 6:19 PM CDT 0.7 mg HYDROmorphone (DILAUDID) injection intravenous, Administer over 2 Minutes, As needed, Starting on Sat04/13/19 at 1614, Anesthesia Intra-op Given 04/13/2019 6:49 PM CDT 0.4 mg Given 04/13/2019 5:38 PM CDT 0.2 mg Given 04/13/2019 5:12 PM CDT 0.4 mg Lactated Ringer's (LR) infusion Continuous PRN, Starting on Sat04/13/19 at 1538, Anesthesia Intra-op New Bag 04/13/2019 4:49 PM CDT New Bag 04/13/2019 3:38 PM CDT lidocaine-EPINEPHrine (XYLOCAINE with EPI) 1.5 %-1:200,000 preservative free injection As needed, Starting on Sat04/13/19 at 1322, Anesthesia Intra-op Given 04/13/2019 1:22 PM CDT 3 mL midazolam (VERSED) preservative free injection Administer over 2 Minutes, As needed, Starting on Sat04/13/19 at 1315, Anesthesia Intra-op Given 04/13/2019 1:15 PM CDT 2 mg neostigmine (PROSTIGMIN) injection intravenous, Administer over 3 Minutes, As needed, Starting on Sat04/13/19 at 1819, Anesthesia Intra-op Given 04/13/2019 6:19 PM CDT 4 mg ondansetron (ZOFRAN) injection 4 mg 4 mg, intravenous, Administer over 2 Minutes, Every 6 hours PRN, nausea, vomiting, Starting on Sat04/12/19 at 0135, Indications: Nausea and VomitingIndications:Nausea and Vomiting Given 04/13/2019 6:13 PM CDT 4 mg phenylephrine (RAYMOND-SYNEPHRINE) 0.5 mg/5 mL (100 mcg/mL) in sodium chloride 0.9% (premix) intravenous, As needed, Starting on Sat04/13/19 at 1537, Anesthesia Intra-op Given 04/13/2019 6:09 PM CDT 100 mcg Given 04/13/2019 5:52 PM CDT 100 mcg Given 04/13/2019 5:15 PM CDT 100 mcg phenylephrine (RAYMOND-SYNEPHRINE) 5 mg/50 mL (100 mcg/mL) in sodium chloride 0.9% (premix) Continuous PRN, Starting on Sat04/13/19 at 1545, Anesthesia Intra-op Rate/Dose Change 04/13/2019 6:27 PM CDT 0.3 mcg/kg/min 14.69 mL/hr Rate/Dose Change 04/13/2019 5:52 PM CDT 0.5 mcg/kg/min 24. 5 mL/hr Restarted 04/13/2019 5:15 PM CDT 0.3 mcg/kg/min 14.69 mL/ hr propofol (DIPRIVAN) IV intravenous, As needed, Starting on Sat04/13/19 at 1537, Anesthesia Intra-op Given 04/13/2019 3:37 PM CDT 150 mg rocuronium (ZEMURON) injection intravenous, As needed, Starting on Sat04/13/19 at 1645, Anesthesia Intra-op Given 04/13/2019 4:45 PM CDT 20 mg Given 04/13/2019 3:50 PM CDT 20 mg sodium chloride 0.9% infusion 50 mL/hr, intravenous, Continuous, Starting on Sat04/15/19 at 0800 New Bag 04/13/2019 4:07 PM CDT succinylcholine (ANECTINE) injection intravenous, As needed, Starting on Sat04/13/19 at 1537, Anesthesia Intra-op Given 04/13/2019 3:37 PM CDT 100 mg documented in this encounter Orders Procedures Count Last Ordered Date First Orde red Date Airway 1 04/13/2019 Peripheral IV Catheter 1 04/13/2019 documented in this encounter Care Teams Superintendent [employer] Relationship Specialty Start Date End Date Julio César Briseno MD PCP - General 10/01/16 Eren Cr MD Referring Physician Medical Oncology 11/25/18 Yohana Bowen MD Radiation Oncologist Radiation Oncology 11/25/18 documented as of this encounter
--- OUTSIDE RECORDS SUMMARY | 2024-06-25 22:35 | XMS_ITS | Encounter Summary ---
Author Organization [facility] Home Care Servic es Address [address] [place] [address] Phone Care Team Providers Care Embalmer Assistant Name Role Phone Julio César Briseno MD Primary Care Provider [phone] Eren Cr MD Unavailable [phone] Yohana Bowen MD Unavailable Reason for Visit * Auth/Cert Specialty Diagnoses / Procedures Referred By Evelyne t Referred To Contact Referral ID Status Reason Start Date Expiration Date Visits Re quested Visits Authorized [id number] 1 1 Encounter Details Date Type Department Care Team (Latest Contact Info) Description 04/26/2019 3:00 PM CDT Home Care Visit [facility] [address] [address] [address] [place] [address] Valentina Talbot, [place] SN OASIS START OF CARE Social History Tobacco Use Types Packs/Day Years Used Date Smoking Tobacco: Never Smokeless Tobacco: Never Alcohol Use Standard Drinks/Week Comments Yes 1 (1 standard drink = 0.6 oz pur e alcohol) Comments No Sex and Gender Information Value Date Recorded Sex Assigned at Not on file Legal 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 Gender Identity Not on file Sexual Orientation Straight 02/19/2021 9: 29 AM CDT Occupation Industry Job Start Date Job End Date retired Not on file Not on file Not on file documented as of this encounter Last Filed Vital Signs Vital Sign Reading Time Taken Comments Blood Pressure 150/76 04/26/2019 4:30 PM CDT Pulse 120 04/26/2019 4:30 PM CDT Temperature 37.7 ??C (99.9 ??F) 04/26/2019 5:00 PM CD T Respiratory Rate 20 04/26/2019 4:30 PM CDT Oxygen Saturation 94% 04/26/2019 4:30 PM CDT Inhaled Oxygen Concentration - - Weight - - Height - - Body Mass Index - - documented in this encounter Plan of Treatment Not on file documented as of this encounter Visit Diagnoses Not on filedocumented in this encounter Home Health Visit - Care Plan Visit Details Visit Type -SN OASIS Start o f Care Discipline -Half-Way Problems Problem Description Start Date Status Goals Interventions Homebound Status Disciplines: Half-Way, Occupational Therapy Patient's homebound status 9 Active 1 goal linked to scheduled/docume nted intervention 1 goal intervention scheduled/documen omar in this visit Monitor patient's vital signs every home health visit Disciplines: Half-Way, Occupational Therapy Monitor patient's vital signs every home health visit. 9 Active 1 goal linked to scheduled/docume nted intervention 1 goal intervention scheduled/documen omar in this visit Standardized Guidelines Disciplines: Half-Way Standardized Guidelines 9 Active 1 goal linked to scheduled/docume nted intervention 2 goal interventions scheduled/documen omar in this visit [place] Precautions Disciplines: Half-Way, Occupational Therapy [place] Precautions 9 Active 1 goal linked to scheduled/docume nted intervention 1 goal intervention scheduled/documen omar in this visit Risk for imbalanced nutrition Disciplines: Half-Way less then body requirements: nutritional intake insufficient to meet metabolic needs related to Colostomy 9 Active 1 goal linked to scheduled/docume nted intervention 2 goal interventions scheduled/documen omar in this visit Risk for deficient fluid volume Disciplines: Half-Way At risk for decreased fluid related to Colostomy 9 Active 1 goal linked to scheduled/docume nted intervention 4 goal interventions scheduled/documen omar in this visit Coping with disturbed body image Disciplines: Half-Way change in mental picture related to Colostomy 9 Active 1 goal linked to scheduled/docume nted intervention 1 goal intervention scheduled/documen omar in this visit Knowledge Deficit - Ostomy Disciplines: Half-Way 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 9 Active 1 goal linked to scheduled/docume nted intervention 4 goal interventions scheduled/documen omar in this visit Wound Risk of Infection Disciplines: Half-Way Risk of infections related to wounds 9 Active 1 goal linked to scheduled/docume nted intervention 3 goal interventions scheduled/documen omar in this visit Wound Education and Management Disciplines: Half-Way Deficiency of cognitive information related to wound care 9 Active 1 goal linked to scheduled/docume nted intervention 3 goal interventions scheduled/documen omar in this visit Wound Care Disciplines: Half-Way Wound care needed 9 Active 1 goal [...] visit during episode of care Description: Home delivery assistant to measure vital signs during every home health visit during episode of care. Monitor patient's vital signs every home health visit No Understanding of when to notify MD in absence of home care staff Description: Understanding of when to notify MD in absence of home care staff Standardized Guidelines No Demonstrate knowledge of universal precautions Description: Demonstrate knowledge of universal precautions [place] Precautions No Maintain Nutrtion Description: Maintain weight [...] Description: Wound show progression towards healing by 2nd week of Homecare Wound Care No Interventions Intervention Associated Problem/Goal [...] needs assistance with all ADLS and IADLS due to pain Monitor Vital Signs Description: Monitor blood pressure, pulse, oxygen saturation, respirations Problem:Monitor patient's vital signs every home health visit Goal:Measure vital signs during every home health visit during episode of care Completed Home Care Staff Absence Description: In absence of Home Care staff the caregivers will assist with ADLS and IADLS as needed Problem:Standardized Guidelines Goal:Understanding of when to notify MD in absence of home care staff Completed Physician notification Description: Use standardized clinical guidelines for notifying physician of abnormal vital signs or clinical findings Problem:Standardized Guidelines Goal:Understanding of when to notify MD in absence of home care staff Completed Indications for notifying physician reviewed with Patient and Caregiver. Patient and Caregiver verbalizes understanding of when to contact the physician, HH, and/or EMS. Aspects of Care Description: Instruct patient/caregiver on universal precautions and home infection control measures Problem:[place] Precautions Goal:Demonstrate knowledge of universal precautions Completed Educate on Nutrition Description: Instruct on diet per Information About You Ostomy Booklet Problem:Risk for imbalanced nutrition Goal:Maintain Nutrtion Completed Assess Nutrition Description: Assess nutrition or have pt keep a food/hydration diary. Problem:Risk for imbalanced nutrition Goal:Maintain Nutrtion Completed Instruct on dehydration Description: Contact MD and/or CWON if ileostomy patient output is greater than 1200 ml in 24hrs. May consult RD for ideas/education Problem:Risk for deficient fluid volume Goal:Maintain Hydration Completed Educate to prevent dehydration Description: Instruct per Information About Your Ostomy Booklet Problem:Risk for deficient fluid volume Goal:Maintain Hydration Completed Instruct on intake/output Description: Instruct patient to monitor intake and monitor output per Information About Your Ostomy Booklet Problem:Risk for deficient fluid volume Goal:Maintain Hydration Completed Assess for dehydration Description: Assess vital signs, skin turgor capillary refill and mucous membranes Problem:Risk for deficient fluid volume Goal:Maintain Hydration Completed Assess of Ostomy Healing Description: Instruct on areas of healing and what a normal stoma appearance is. Problem:Coping with disturbed body image Goal:Acceptance of Ostomy Completed Educate on ostomy appliance weartime issues Description: Consult CWON if leakage problems Problem:Knowledge Deficit - Ostomy Goal:Verbalize understanding of Ostomy Completed Educate on Ostomy supply ordering and samples Description: Instruct on supply order and how to find informatics physician # as prepare for discharge from homecare. Enroll patient in the sample programs from [facility] ( ), [facility] ( ) and [facility] ( ) prior to discharge. Problem:Knowledge Deficit - Ostomy Goal:Verbalize understanding of Ostomy Completed Educate on Ostomy Appliance Description: Intervention Description: Instruct patient/caregiver to return demo of appliance change may include written and or phots directions. Problem:Knowledge Deficit - Ostomy Goal:Verbalize understanding of Ostomy Completed Educate on emptying of [...] symptoms of infection and when to notify INVESTMENTS MANAGER and/or physician per Wound Education Booklet. Instruct [...] bag, seal, and place in regular trash. Instruct on the signs and symptoms of infection Description: Assess wound with each visit for s/sx of infection Problem:Wound Risk of Infection Goal:Knowledgeable of infection Completed Hydration for Wound Healing Description: Instruct on adequate hydration for wound healing, generally 6.5-8 cups (52-64oz/day). Unless health professional has suggested a fluid restriction Problem:Wound Education and Management Goal:Knowledgeable on Woundcare Completed Educate on Wound Care Management Description: Instruct patient/caregiver on wound care per MD orders per Wound Education Booklet, may include written directions and or photos for patient/caregiver education. Problem:Wound Education and Management Goal:Knowledgeable on Woundcare Completed Instruct patient on maintaining adequate nutrition and hydration Description: Instruct patient on maintaining adequate nutrition for wound healing. Instruct pt/cg on eating/offering a balanced diet. Instruct on adequate protein sources per Wound Education Booklet. Consult RD for chronic malnutrition, stage 3 or 4 pressure ulcer. Problem:Wound Education and Management Goal:Knowledgeable on Woundcare Completed Skilled assessment wound Description: Full wound assessment including measurement weekly. Wound assessment each visit Problem:Wound Care Goal:Progression towards healing Completed documented in this encounter Home Health Visit - Actions and Narratives Narratives M2020 - Management of Oral M edications Documented Answer: 1 - Able to take medication(s) at the correct times if: (a) individual dosages are prepared in advance by another person; OR (b) another person develops a drug diary or chart. Recommendation: 3 - Unable to take medication unless administered by another person. patient is a fall risk with limited endurance and ambulation, may require assistance. Jonah Casandradouglas DPO 05/04/2019 Chart review and recommendation made by Callie Lance [facility], [facility], [employer] documented in this encounter Care Teams Embalmer Assistant Relationship Specialty Start Date End Date Julio César Briseno MD PCP - General 10/01/16 Eren Cr MD Referring Physician Medical Oncology 11/25/18 Yohana Bowen MD Radiation Oncologist Radiation Oncology 11/25/18 documented as of this encounter
--- OUTSIDE RECORDS SUMMARY | 2024-06-25 22:35 | XMS_ITS | Encounter Summary ---
Author Organization [facility] Home Care Servic es Address [address] [place] [address] Phone Care Team Providers Care Outside Plant Engineer Name Role Phone Julio César Briseno MD Primary Care Provider [phone] Eren Cr MD Unavailable [phone] Yohana Bowen MD Unavailable Encounter Details Date Type Department Care Team (Late st Contact Info) Description 04/26/2019 Plan of Care Documentation [facility] [address] [address] [address] [place] [id number] Social History Tobacco Use Types Packs/Day Years Used Date Smoking Tobacco: Never Smokeless Tobacco: Never Alcohol Use Standard Drinks/Week Comments Yes 1 (1 standard drink = 0.6 oz pur e alcohol) Comments No Sex and Gender Information Value Date Recorded Sex Assigned at Not on file Legal Sex Female 2:41 PM [employer]TING [employer]ER[employer] Gender Identity Not on file Sexual Orientation Straight 02/19/2021 9: 29 AM CDT Occupation Industry Job Start Date Job End Date retired Not on file Not on file Not on file documented as of this encounter Plan of Treatment Not on file documented as of this encounter Visit Diagnoses Not on filedocumented in this encounter Care Teams Outside Plant Engineer Relationship Specialty Start Date End Date Julio César Briseno MD PCP - General 10/01/16 Eren Cr MD Referring Physician Medical Oncology 11/25/18 Yohana Bowen MD Radiation Oncologist Radiation Oncology 11/25/18 documented as of this encounter
--- OUTSIDE RECORDS SUMMARY | 2024-06-25 22:35 | XMS_ITS | Encounter Summary ---
Author Organization [facility] Healthcare Address [address] [place] [address] Care Team Providers Care Contracting Support Specialist Name Role Phone Julio César Briseno MD Primary Care Provider Eren Cr MD Unavailable [phone] Yohana Bowen MD Unavailable Encounter Details Date Type Department Care Team (Latest Contact Info) Description 04/12/2019 12:52 AM CDT - 04/24/2019 5:15 PM CDT Hospital Encounter [facility] [address] [place] [address] Woodrow Cerna MD [address] [facility] [id number] [place] [address] Greyson Reeves MD [address] [facility] [phone] [place] [address] Large bowel obstruction (CMS/HCC) (Primary Dx); Acute postoperative abdominal pain; Neuroendocrine carcinoma (CMS/HCC) Discharge Disposition: Discharge to home, home health skilled care Social History Tobacco Use Types Packs/Day Years Used Date Smoking Tobacco: Never Smokeless Tobacco: Never Alcohol Use Standard Drinks/Week Comments Yes 1 (1 standard drink = 0.6 oz pur e alcohol) Comments No Sex and Gender Information Value Date Recorded Sex Assigned at Not on file Legal Sex Female 2:41 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 Gender Identity Not on file Sexual Orientation Straight 02/19/2021 9: 29 AM CDT Occupation Industry Job Start Date Job End Date retired Not on file Not on file Not on file documented as of this encounter Last Filed Vital Signs Vital Sign Reading Time Taken Comments Blood Pressure 134/53 04/24/2019 11:50 AM CDT Pulse 101 04/24/2019 11:50 AM CDT Temperature 38.1 ??C (100.6 ??F) 04/24/2019 11:50 AM CDT Respiratory Rate 20 04/24/2019 11:50 AM CDT Oxygen Saturation 94% 04/24/2019 11:50 AM CDT Inhaled Oxygen Concentration - - Weight 81.6 kg (180 lb) 04/12/2019 12:25 AM CDT Height 160 cm (5' 3 ) 04/12/2019 12:25 AM CDT Body Mass Index 31.89 04/12/2019 12:25 AM CDT documented in this encounter Discharge Diagnoses Diagnosis Other malignant neuroendocrine tumors (HCC) - OTHER MALIGNANT NEUROENDOCRINE TUMORS Acute kidney failure, unspecified (HCC) - ACUTE KIDNEY FAILURE, UNSPECIFIED Acute kidney failure, unspecified Other acute postprocedural pain - OTHER ACUTE POSTPROCEDURAL PAIN Peritoneal adhesions (postprocedural) (postinfection) - PERITONEAL ADHESIONS (POSTPROCEDURAL) (POSTINFECTION) Overactive bladder - OVERACTIVE BLADDER Hypertonicity of bladder Other disorders of phosphorus metabolism - OTHER DISORDERS OF PHOSPHORUS METABOLISM Thrombocytopenia, unspecified (HCC) - THROMBOCYTOPENIA, UNSPECIFIED Thrombocytopenia, unspecified Hypotension, unspecified - HYPOTENSION, UNSPECIFIED Anuria and oliguria - ANURIA AND OLIGURIA Oliguria and anuria Pure hypercholesterolemia, unspecified - PURE HYPERCHOLESTEROLEMIA, UNSPECIFIED Hypomagnesemia - HYPOMAGNESEMIA Disorders of magnesium metabolism Hypocalcemia - HYPOCALCEMIA Hypokalemia - HYPOKALEMIA Hypopotassemia Anxiety disorder, unspecified - ANXIETY DISORDER, UNSPECIFIED Essential (primary) hypertension - ESSENTIAL (PRIMARY) HYPERTENSION Unspecified essential hypertension Tachycardia, unspecified - TACHYCARDIA, UNSPECIFIED Obesity, unspecified - OBESITY, UNSPECIFIED Body mass index (bmi) 31.0-31.9, adult - BODY MASS INDEX (BMI) 31.0-31.9, ADULT Allergy status to other drugs, medicaments and biological substances status - ALLERGY STATUS TO OTHER DRUGS, MEDICAMENTS AND BIOLOGICAL SUBSTANCES STATUS Other fdc (current) drug therapy - OTHER ASSEMBLER RADIO AND ELECTRICAL (CURRENT) DRUG THERAPY Family history of malignant neoplasm of breast - FAMILY HISTORY OF MALIGNANT NEOPLASM OF BREAST Family history of other mental and behavioral disorders - FAMILY HISTORY OF OTHER MENTAL AND BEHAVIORAL DISORDERS documented in this encounter Discharge Summaries * Janelle Jacques MD - 04/23/2019 6:02 AM CDT Inpatient Discharge Summary Admitting Provider: Woodrow Cerna MD Discharge Provider: Greyson Reeves MD Primary Care Physician at Discharge: Julio César Briseno MD [phone] Admission Date: 04/12/2019 Discharge Date: 04/24/2019 Primary Discharge Diagnosis: Bowel obstruction due to ileal neuroendocrine tumor Secondary Discharge Diagnosis: Large bowel obstruction (CMS/HCC) Neuroendocrine carcinoma (CMS/HCC) Hypocalcemia ANNE-MARIE (acute kidney injury) (CMS/HCC) Operative Procedures Performed: Exploratory laparotomy with creation of divided loop ileostomy History of Present Illness: Please see H&P dated 04/12/2019 for full details. In summary, Please refer to H&P dated 04/12/2019 for complete details. In summary, Ms. 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 ?? She was last seen by her oncologist on 03/[address] scan was done to evaluate for progression of her disease while she undergoes PRRT treatment. She completed 2/4 cycles and is scheduled for her third cycle this 04/15. At that visit she was given a dose of Xgeva (Denosumab) for hypercalcemia. ?? On 04/10, the patient had one small bowel movement in the morning. Her gave her usual injection of octreotide and she later began to experience 8/10, intermittent, cramping abdominal pain that was associated with nausea and an episode of emesis. The pain begins in the suprapubic region and radiates to her LUQ before diffusing across the abdomen. Throughout the day she continued to have additional episodes of emesis and the cramping abdominal pain persisted. She presented to an Urgent Care and was sent to the [facility] ED where a CT scan was performed that demonstrated a possible partial large bowel obstruction. An NGT was placed to suction, a CBC/CMP/lactic acid were obtained that were within normal limits, and a UA was taken that was positive for WBCs but negative for nitrites. She was transferred to [facility] for a high level of care. Hospital Course: Patient was taken back for exploratory laparotomy with creation of divided loop ileostomy on 04/13/2019. Please see operative note dictated by Dr. Reeves for complete details. Notable intraoperative findings included: more complicated case than usual. She had tensions for loop adhesions. There was aobvious peritoneal metastasis in the pelvis on the left side wall that was causing a large bowel obstruction and had several loops of small intestine adherent to it. . Postoperatively, patient was transferred to the floor and overall did well. We provided fluid resuscitation, pain control, and diet was advanced as tolerated. Home medications were restarted as indicated. At time of discharge, patient's pain was well-controlled on oral pain medications, tolerating adequate oral intake with normal bowel function, voiding spontaneously without difficulty, and ambulating well.The patient is in agreement with the discharge plan. The hospital course was notable for the followin/5: NPO, NGT in place, UCx, GI c/s 04/12: NPO, NGT, GI consult for Scope on 04/13, enema tonight and morning, labs. 04/13: ativan for anxiety, IPAP consult, ostomy marking. OR- ex lap, ALEJANDRO, colostomy, mucus fistula 04/14: Med onc c/s. FeNa 0.1%. 4g Ca glu+calcium drip for hypocalcemia (from xgeva) to 6.4. Endo c/s. Multiple fluid boluses (1.5L) for low UOP. Trop <0.03. O/n: self-removed NGT, replaced. 500 cc NS bolus x2. 04/15 continue to monitor calcium, + stool, keep NGT, labs, Ca drip 4/h 04/16 dc'd masterson, NG to gravity, monitor hypocalcemia, NG tube removed 04/17: K 8.1, repeat 3.5. D/c NETWORK MANAGER. POPM, 1 unit of PRBC's for 6.9/21.0, clear liquids, EKG, dc entry operator,POPM, TUMS, Vit D 04/18: D/c epidural. Restart Lovenox. BMP Q12h. Restart statin+BP meds. SLIV. 04/19: Ditropan TID for OAB. KCl 60mEq 04/20: KCl 40mEq. Pt refusing rehab, pouching issues 04/22: ostomy teaching, pouching improved Active Issues Requiring Follow-up: Ostomy care Overactive bladder- patient will be discharged with 2 weeks oxybutynin; instructed to f/u with provider previously managing her bladder sx for continued prescription of this medication Anticoagulation- patient discharged with 21 days Lovenox for DVT prophylaxis Endocrine follow-up - patient discharged on [id number] Vitamin D Test Results Pending at Discharge: None Pertinent Test Results: None; no surgical pathology Other Procedures Performed During Hospitalization: None Discharge Details Physical Exam at Discharge: Discharge Condition: stable Pulse: 101 Resp: 20 BP: 134/53 Temp: 38.1 ??C (100.6 ??F) Weight: 81.6 kg (180 lb) Gen: AOx3, conversing comfortably HEENT: EOMI, moist mucus membranes Neck: Supple, trachea midline CV: Regular rate, no JVD, warm and well-perfused Pulm: Non-labored breathing Abd: Soft, nontender, nondistended Ext: warm, no pedal edema Neuro: AMIN, no focal deficits Surgical incisions- well approximated, clean, dry and intact. Minimal erythema along inferior portion of midline wound; ostomy pink with soft output in bag Lines: none (PICC removed on day of discharge) Discharge Disposition: Discharged to: Home with home health Code Status at Discharge: Full Discharge Instructions: DISCHARGE INSTRUCTIONS FOR COLOSTOMY Call your doctor if: Call 911 or [...] or you develop vomiting. * You develop worsening abdominal pain or incisional pain. * You have pus, bright red blood or foul smelling drainage from incision. * You have watery stools and have to empty your colostomy bag more than 8 times in a 24 hour period. * You lose more than 1 cup of blood from your wound, rectum or ostomy. * You are unable to urinate after 8 hours. * You have dizziness, lightheadedness or extreme fatigue. Diet: Regular Diet. Activity: * No lifting more then 10 pounds or strenuous exercise until approved by MD. * No driving for at least 2 weeks and while taking narcotic pain medications. Care Instructions: * Unless you are told otherwise, you may shower. * No tub baths until your doctor says it???s okay. Follow Up: * Please call to schedule a follow up appointment in 4 weeks with your doctor. * Please also schedule an appointment to have your mary removed 10 days following surgery if youare not receiving home health care services. Additional Information: Prescriptions will only be refilled during our normal office hours of 8:30 AM- 4:00 PM Saturday through Saturday. No prescriptions will be refilled over the weekend. Please plan ahead if you know that youwill need a medication and allow a 24 hour period for it to be refilled. Activity Instructions Discharge Activity: Lifting restrictions -Do NOT lift greater than 10 pounds for 6 weeks. Discharge Activity: Walking -You may walk as tolerated. Diet Instructions Adult Discharge Diet Diet Type: Return to previous diet Other Instructions Ambulatory referral to Home Health Service Line: Home Health Primary disciplines requested: [facility] Services: Wound/ Ostomy Care Physician to follow patient's care (the person listed here will be responsible for signing ongoing orders): Referring Provider Requested Start of Care Date: Tomorrow Special instructions (labs, wound care, etc.): Ostomy care and teaching, wound check, 21 days of Lovenox, if abdominal mary present- please remove 14 days post op I attest that I or another qualified licensed provider saw the patient 90 days prior to or 30 days post admission and this face to face encounter meets the necessary Home Health requirements. The face to face encounter occurred on (date): 04/16/2019 The encounter with the patient was in whole, or in part, for the following medical condition, whichis the primary reason for home health care. (List medical condition): Metastatic neuroendocrine tumor with recent obstruction I certify that, based on my findings, the following services are medically necessary skilled home health services: Wound/ Ostomy Care Clinical findings that support the need for home care: Medical condition requiring skilled assessment/education Wound requiring care, assessment, and instruction I certify that my clinical findings support patient's homebound status. Homebound criteria met because: Pain and impaired mobility post-op Call provider for: increased temperature -Temperature greater than 101 degrees F Call provider for: nausea, vomiting, diarrhea -If you have persistent nausea, vomiting or diarrhea (more than 10 stools per day) that does not stop Call provider for: redness, tenderness, or signs of infection (pain, swelling, redness, odor or green/yellow discharge around incision site) Call provider for: severe uncontrolled pain Call provider for: any other concerns or questions Call provider if: you feel dizzy, very tired or like you may faint Care Instructions: No tub baths -No tub baths, whirlpools or swimming until your provider says it's ok. Colostomy patients -Notify MD office if no output for greater than 2 days -Notify MD office if prolonged abdominal pain, persistent nausea or vomiting, and abdominal distention -Inability to maintain a pouch seal for greater than 24 hours -Skin irritation that does not heal in 1-2 pouch changes [facility] Home Health You should be contacted by the home health care agency within 1-2 days regarding scheduling visit. If you don't hear from them, call the number listed above to follow-up. Discharge Medications: Your medication list START taking these medications enoxaparin 40 mg/0.4 mL syringe Commonly known as: LOVENOX Inject 0.4 mL (40 mg total) under the skin daily for 21 days oxybutynin 5 mg tablet Commonly known as: DITROPAN Take 1 tablet (5 mg total) by mouth 2 (two) times a day for 14 days oxyCODONE 5 mg immediate release tablet Commonly known as: ROXICODONE Take 1 tablet (5 mg total) by mouth every 4 (four) hours as needed for pain CHANGE how you take these medications cholecalciferol 2,000 unit capsule Commonly known as: VITAMIN D-3 Take 1 capsule (2,000 Units total) by mouth daily Start taking on: April 25, 2019 What changed: medication strength how much to take DULoxetine DR 30 mg capsule Commonly known as: CYMBALTA Take 1 capsule (30 mg total) by mouth daily What changed: how much to take how to take this when to take this CONTINUE taking these medications ascorbic acid (vitamin C) 500 mg capsule clotrimazole-betamethasone cream Commonly known as: LOTRISONE CO Q-10 (WITH VIT E) 100-5 mg-unit capsule Generic drug: coenzyme [id number] E fluticasone propionate 50 mcg/actuation nasal spray Commonly known as: FLONASE montelukast 10 mg tablet Commonly known as: SINGULAIR olmesartan-hydrochlorothiazide 20-12.5 mg per tablet Commonly known as: BENICAR HCT PROCTOSOL HC 2.5 % rectal cream Generic drug: hydrocortisone simvastatin 20 mg tablet Commonly known as: ZOCOR STOP taking these medications cholestyramine 4 gram packet Commonly known as: QUESTRAN diphenoxylate-atropine 2.5-0.025 mg per tablet Commonly known as: LOMOTIL ergocalciferol 50,000 unit capsule Commonly known as: VITAMIN D MYRBETRIQ 50 mg tablet extended release 24 hr Generic drug: mirabegron ER octreotide 100 mcg/mL (1 mL) syringe Commonly known as: SandoSTATIN Outpatient Follow-Up: Future Appointments Date Time Provider Department Center 05/28/2019 1:30 PM Greyson Reeves MD [facility] 06/10/2019 7:00 AM Yohana Bowen MD CAM Rad Onc [facility] CAM 06/10/2019 4:00 PM POD 8 CAM ONC INF [facility] 06/16/2019 1:00 PM Oksana Rivas NP ONC [facility] 13C OB Outpatient Follow-Up: Future Appointments Date Time Provider Department Center 05/28/2019 1:30 PM Greyson Reeves MD C/R [facility] 06/10/2019 7:00 AM Yohana Bowen MD CAM Rad Onc [facility] CAM 06/10/2019 4:00 PM POD 8 CAM ONC INF [facility] 06/16/2019 1:00 PM Oksana Rivas NP ONC [facility] 13C OB Cosigned by Greyson Reeves MD at 04/24/2019 2:17 PM CDT documented in this encounter Discharge Instructions * Discharge Instr - Other Orders* Priscilla Aguilar RN - 04/15/2019 1:39 PM CDT [facility] Home Health You should be contacted by the home health care agency within 1-2 days regarding scheduling visit. If you don't hear from them, call the number listed above to follow-up. documented in this encounter Medications at Time [...] :supplement Take 1 tablet by mouth patient relations representative before breakfast 07/04/2016 4 cholecalciferol (VITAMIN D-3) 2,000 unit capsule Take 1 capsule (2,000 Units total) by mouth daily 30 capsule 2 04/25/2019 3 clotrimazole-betam ethasone (LOTRISONE) cream Apply 1 Application topically daily as needed (rash) 4 coenzyme [id number] 100-5 mg-unit capsuleIndications :supplement Take 1 tablet by mouth patient relations representative before breakfast [address] (CYMBALTA) 30 [...] 04/24/2019 0 documented as of this encounter Ordered Prescriptions Prescription Sig Dispense Quantity Refills Last Filled Start Date End Date cholecalciferol (VITAMIN D-3) 2,000 unit capsule Take 1 capsule (2,000 Units total) by mouth daily 30 capsule 2 04/25/[address] (CYMBALTA) 30 mg capsule Take 1 capsule (30 mg total) by mouth daily 30 capsule 2 04/24/2019 4 oxyCODONE (ROXICODONE) 5 mg immediate release tabletIndications:P ain Take 1 tablet (5 mg total) by mouth every 4 (four) hours as needed for pain 10 tablet 04/24/2019 0 oxybutynin (DITROPAN) 5 mg tabletIndications:B ladder Hyperactivity Take 1 tablet (5 mg total) by mouth 2 (two) times a day for 14 days 28 tablet 04/24/2019 2 enoxaparin (LOVENOX) 40 mg/0.4 mL syringeIndications: Deep Vein Thrombosis Prevention Inject 0.4 mL (40 mg total) under the skin daily for 21 days 8.4 mL 04/24/2019 9 documented in this encounter Discharge Disposition Disposition Code Departure Means Destination Discharge to home, home health skilled care documented in this encounter Progress Notes * Priscilla Aguilar RN - 04/24/2019 1:30 PM CDT 04/24/19 1329 Communications Important Message from Medicare notice given to patient? Yes Patient presented an IM letter, signed and dated. Form faxed to medical records. * Laura Lopes MD - 04/24/2019 11:55 AM CDT CRS Progress Note Subjective The patient is a 68 yo F with metastatic ileal neuroendocrine tumor, presenting with a large bowel obstruction, now s/p Ex Lap + End colostomy Interval History: No acute events overnight. Doing well, no complaints. No pouching issues for the last day and a half. Objective Vitals: 24hr Min/Max: Temp Min: 36.9 ??C (98.4 ??F) Max: 38.1 ??C (100.6 ??F) Pulse Min: 81 Max: 105 BP Min: 106/49 Max: 164/70 Resp Min: 16 Max: 20 SpO2 Min: 94 % Max: 100 % Most Recent : Vitals: 04/24/19 1150 BP: 134/53 Pulse: 101 Resp: 20 Temp: 38.1 ??C (100.6 ??F) SpO2: 94% I/O last 2 completed shifts: In: - Out: 975 [Urine:550; Stool:425] No intake/output data recorded. Physical Exam: Gen: AOx3, conversing comfortably HEENT: EOMI, moist mucus membranes Neck: Supple, trachea midline CV: Regular rate, no JVD Pulm: Non-labored breathing Abd: Soft, nontender, nondistended; incision c/d/i with mary in place, colostomy pink- mildly retracted, soft output in bag Ext: warm, no pedal edema Neuro: AMIN, no focal deficits Lab/Radiology/Diagnostic Review: Laboratory review: Lab results in the last 24 hours: Recent Results (from the past 24 hour(s)) Calcium, ionized Collection Time: 04/23/19 8:19 PM Result Value Ref Range Calcium, Ionized 4.92 4.50 - 5.10 mg/dL Basic metabolic panel Collection Time: 04/23/19 8:19 PM Result Value Ref Range Sodium 136 135 - 145 mmol/L Potassium, pl 3.9 3.3 - 4.9 mmol/L Chloride 100 97 - 110 mmol/L CO2 29 22 - 32 mmol/L Anion gap 7 2 - 15 mmol/L BUN 8 8 - 25 mg/dL Creatinine 0.76 0.60 - 1.10 mg/dL Glucose 145 70 - 199 mg/dL Calcium 9.4 8.5 - 10.3 mg/dL Calcium, ionized Collection Time: 04/24/19 5:42 AM Result Value Ref Range Calcium, Ionized 5.15 (H) 4.50 - 5.10 mg/dL Assessment /Plan Problem List Items Addressed This Visit Digestive * (Principal) Large bowel obstruction (CMS/HCC) - Primary Relevant Orders Case Request Operating Room: EXPLORATORY LAPAROTOMY, COLOSTOMY, RESECTION SMALL BOWEL (Completed) Ambulatory referral to Home Health Other Neuroendocrine carcinoma (CMS/HCC) Neuroendocrine tumor with bone mets. Received denosumab and found to have hypocalcemia. Would not use denosumab again given high risk for hypocalcemia. Can consider zometa if needed in the future. Plan for hypocalcemia as documented elsewhere. 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 Currently on peptide receptor radionuclide therapy, octreotide, now admitted due to large bowel obstruction. Now s/p Ex Lap + End colostomy. Patient is doing well. We will plan for discharge today. Plan: - Reg diet - oxybutynin TID for overactive bladder - continue Vit D supplementation, discontinue calcium - Acute pain control- tylenol, gabapentin, PRN oxycodone - Continue home statin and BP meds - DVT ppx: Lovenox, SCDs - OOB, ambulate - PT/OT, OOB - ostomy teaching Seen and discussed with fellow, to be discussed with attending Laura Lopes MD Colorectal Surgery Cosigned by Greyson Reeves MD at 04/24/2019 2:17 PM CDT * Lala Martinez MD - 04/24/2019 10:59 AM CDT Endocrine Inpatient Follow Up 04/24/2019 La Chung [id number] Julio César Briseno MD Admit Date: 04/12/2019 Length of Stay: 12 SUBJECTIVE: The patient is a 68 yo F with metastatic ileal neuroendocrine tumor, presenting with a large bowel obstruction s/p Ex Lap + End colostomy. Endocrine consulted for hypocalcemia. ?? Interval History: Feels well. Ready to go home. Eating well. Denies parasthesias, numbness. Blood sugar: Recent Labs Lab Units 04/23/19201804/22/19 2159 04/21/19 2210 04/20/19 2222 04/20/19 0607 04/19/19 1814 04/19/19 0637 04/18/19 1833 04/18/19 0642 04/17/19 1851 GLUCOSE mg/dL 145 127 142 128 110 106 113 125 119 274* Review of Systems All systems were review and are negative except specified in HPI Vitals: 04/23/19 1945 04/23/19 2335 04/24/19 0448 04/24/19 0850 BP: 139/69 164/70 106/49 136/64 BP Location: Right arm Right arm Right arm Patient Position: Lying Lying Lying Pulse: 100 105 83 103 Resp: Temp: 36.9 ??C (98.4 ??F) 37.2 ??C (99 ??F) 37 ??C (98.6 ??F) 37.3 ??C (99.1 ??F) TempSrc: Oral Oral Oral SpO2: 99% 97% 97% Weight: Height: No intake/output data recorded. Physical Exam General: Alert, no acute distress HENT: mucus membranes are moist, no oral lesions Eyes: Sclera anicteric, EOMI, no proptosis Lungs: normal effort, clear to ascultation anteriorly Heart: regular rate, normal rhythm, no murmur appreciated Abdomen: soft, non-tender, + ostomy Extremities: no lower extremity edema, warm, well perfused Neuro: grossly intact, alert and oriented x 3. No Chvostek's sign Skin: No rash LAB/IMAGING: Recent Results (from the past 24 hour(s)) Calcium, ionized Collection Time: 04/23/19 8:19 PM Result Value Ref Range Calcium, Ionized 4.92 4.50 - 5.10 mg/dL Basic metabolic panel Collection Time: 04/23/19 8:19 PM Result Value Ref Range Sodium 136 135 - 145 mmol/L Potassium, pl 3.9 3.3 - 4.9 mmol/L Chloride 100 97 - 110 mmol/L CO2 29 22 - 32 mmol/L Anion gap 7 2 - 15 mmol/L BUN 8 8 - 25 mg/dL Creatinine 0.76 0.60 - 1.10 mg/dL Glucose 145 70 - 199 mg/dL Calcium 9.4 8.5 - 10.3 mg/dL Calcium, ionized Collection Time: 04/24/19 5:42 AM Result Value Ref Range Calcium, Ionized 5.15 (H) 4.50 - 5.10 mg/dL Lab Results Component Value Date PTH 554 (H) 04/14/2019 Assessment/Plan Hypocalcemia Assessment & Plan History of elevated serum Ca to 11.1, thought 2/2 metastatic bony disease. Received denosumab 03/30 120mg SQ. Ca on presentation to [facility] 8.2; following surgical procedure, Ca acutely dropped to 6.4 (7.2 corrected for albumin) with ANNE-MARIE. 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 Unclear cause of acute drop following surgery -> possibly exacerbated by decrease in GFR vs phosphorus supplementation. No blood products documented intraop. PTH appropriately elevated. She has had intermittently elevated iCa and has corrected calcium in the upper end of normal range.Will discontinue calcium supplementation as we anticipate that [...] a future. Would not use denosumab again. Neuroendocrine carcinoma (CMS/HCC) Assessment & Plan Neuroendocrine tumor with bone mets. Received denosumab and found to have hypocalcemia. Would not use denosumab again given high risk for hypocalcemia. Can consider zometa if needed in the future. Plan for hypocalcemia as documented elsewhere. Cosigned by Patience Kirkpatrick MD at 04/24/2019 4:43 PM CDT Associated attestation - Patience Kirkpatrick MD - 04/24/2019 4:43 PM CDT I have seen and examined the patient on 04/24/19. I agree with the findings and plan of care as documented in the resident's/fellow's note. * Priscilla Aguilar RN - 04/24/2019 9:56 AM CDT 04/13/19 0831 Discharge Summary Chart reviewed For Medical Necessity Does patient have a planned readmission to hospital planned? No Equipment/Provider Needs Home Provider Services Needs Identified Home Care Agency Information Home Care Agency Type #1: [facility] Home Care Agency Name [facility] Home Care Agency Home Care Agency Contact Spoken to Yenny [facility] Home Care Agency Used? Not Needed Discharge Additional Assistance Does the patient need discharge transport arranged? No Patient to discharge to home today with family providing transportation. [facility] will follow for ostomy care. * Janelle Jacques MD - 04/23/2019 6:00 AM CDT CRS Progress Note Subjective The patient is a 68 yo F with metastatic ileal neuroendocrine tumor, presenting with a large bowel obstruction, now s/p Ex Lap + End colostomy Interval History: No acute events overnight. Doing well, no complaints. Objective Vitals: 24hr Min/Max: Temp Min: 37.1 ??C (98.8 ??F) Max: 37.5 ??C (99.5 ??F) Pulse Min: 80 Max: 106 BP Min: 137/53 Max: 162/68 Resp Min: 16 Max: 18 SpO2 Min: 95 % Max: 100 % Most Recent : Vitals: 04/23/19 0429 BP: 140/64 Pulse: 89 Resp: 16 Temp: 37.5 ??C (99.5 ??F) SpO2: 99% I/O last 2 completed shifts: In: 100 [P.O.:100] Out: 1200 [Urine:875; Stool:325] I/O this shift: In: - Out: 975 [Urine:700; Stool:275] Physical Exam: Gen: AOx3, conversing comfortably HEENT: EOMI, moist mucus membranes Neck: Supple, trachea midline CV: Regular rate, no JVD Pulm: Non-labored breathing Abd: Soft, nontender, nondistended; incision c/d/i with mary in place, colostomy pink- mildly retracted, soft output in bag Ext: warm, no pedal edema Neuro: AMIN, no focal deficits Lab/Radiology/Diagnostic Review: Laboratory review: Lab results in the last 24 hours: Recent Results (from the past 24 hour(s)) Calcium, ionized Collection Time: 04/22/19 6:27 PM Result Value Ref Range Calcium, Ionized 5.11 (H) 4.50 - 5.10 mg/dL Basic metabolic panel Collection Time: 04/22/19 9:59 PM Result Value Ref Range Sodium 135 135 - 145 mmol/L Potassium, pl 3.7 3.3 - 4.9 mmol/L Chloride 99 97 - 110 mmol/L CO2 28 22 - 32 mmol/L Anion gap 8 2 - 15 mmol/L BUN 6 (L) 8 - 25 mg/dL Creatinine 0.79 0.60 - 1.10 mg/dL Glucose 127 70 - 199 mg/dL Calcium 9.2 8.5 - 10.3 mg/dL Assessment /Plan Problem List Items Addressed This Visit Digestive * (Principal) Large bowel obstruction (CMS/HCC) - Primary Relevant Orders Case Request Operating Room: EXPLORATORY LAPAROTOMY, COLOSTOMY, RESECTION SMALL BOWEL (Completed) Ambulatory referral to Home Health Other Neuroendocrine carcinoma (CMS/HCC) Relevant Orders Ambulatory referral to Home Health Other Visit Diagnoses Acute postoperative abdominal pain The patient is a 68 yo F with a PMH remarkable for HLD, HTN, and 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 Currently on peptide receptor radionuclide therapy, octreotide, now admitted due to large bowel obstruction. Now s/p Ex Lap + End colostomy. Plan: - Reg diet - oxybutynin TID for overactive bladder - continue Vit D supplementation, PRN calcium repletion, endocrinology following - Acute pain control- tylenol, gabapentin, PRN oxycodone - Continue home statin and BP meds - DVT ppx: Lovenox, SCDs - OOB, ambulate - PT/OT, OOB - ostomy teaching Seen and discussed with fellow, to be discussed with attending Janelle Jacques MD Colorectal Surgery Cosigned by Greyson Reeves MD at 04/23/2019 8:00 AM CDT * Janelle Jacques MD - 04/22/2019 5:23 AM CDT CRS Progress Note Subjective The patient is a 68 yo F with metastatic ileal neuroendocrine tumor, presenting with a large bowel obstruction, now s/p Ex Lap + End colostomy Interval History: No acute events overnight. Pain well-controlled. No nausea/vomiting, voiding without difficulty. Objective Vitals: 24hr Min/Max: Temp Min: 36.7 ??C (98.1 ??F) Max: 37.3 ??C (99.1 ??F) Pulse Min: 78 Max: 89 BP Min: 135/76 Max: 169/66 Resp Min: 17 Max: 18 Most Recent : Vitals: 04/22/19 0429 BP: 136/62 Pulse: 78 Resp: 17 Temp: 36.8 ??C (98.2 ??F) SpO2: I/O last 2 completed shifts: In: 600 [P.O.:600] Out: 2575 [Urine:0; Stool:525] I/O this shift: In: - Out: 600 [Urine:500; Stool:100] Physical Exam: Gen: AOx3, conversing comfortably HEENT: EOMI, moist mucus membranes Neck: Supple, trachea midline CV: Regular rate, no JVD Pulm: Non-labored breathing Abd: Soft, nontender, nondistended; incision c/d/i, colostomy pink- mildly retracted, scant output in bag Ext: warm, no pedal edema Neuro: AMIN, no focal deficits Lab/Radiology/Diagnostic Review: Laboratory review: Lab results in the last 24 hours: Recent Results (from the past 24 hour(s)) Calcium, ionized Collection Time: 04/21/19 5:48 AM Result Value Ref Range Calcium, Ionized 4.95 4.50 - 5.10 mg/dL Calcium, ionized Collection Time: 04/21/19 6:18 PM Result Value Ref Range Calcium, Ionized 5.00 4.50 - 5.10 mg/dL Basic metabolic panel Collection Time: 04/21/19 10:10 PM Result Value Ref Range Sodium 139 135 - 145 mmol/L Potassium, pl 3.4 3.3 - 4.9 mmol/L Chloride 103 97 - 110 mmol/L CO2 30 22 - 32 mmol/L Anion gap 6 2 - 15 mmol/L BUN 5 (L) 8 - 25 mg/dL Creatinine 0.70 0.60 - 1.10 mg/dL Glucose 142 70 - 199 mg/dL Calcium 9.3 8.5 - 10.3 mg/dL Assessment /Plan Problem List Items Addressed This Visit Digestive * (Principal) Large bowel obstruction (CMS/HCC) - Primary Relevant Orders Case Request Operating Room: EXPLORATORY LAPAROTOMY, COLOSTOMY, RESECTION SMALL BOWEL (Completed) Ambulatory referral to Home Health Other Neuroendocrine carcinoma (CMS/HCC) Relevant Orders Ambulatory referral to Home Health Other Visit Diagnoses Acute postoperative abdominal pain The patient is a 68 yo F with a PMH remarkable for HLD, HTN, and 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 Currently on peptide receptor radionuclide therapy, octreotide, now admitted due to large bowel obstruction. Now s/p Ex Lap + End colostomy. Plan: - Reg diet - oxybutynin TID for overactive bladder - continue Vit D supplementation, PRN calcium repletion, endocrinology following; to start Zometa on discharge - Acute pain control- tylenol, gabapentin, PRN oxycodone - Continue home statin and BP meds - DVT ppx: Lovenox, SCDs - OOB, ambulate - PT/OT, OOB - ostomy teaching Seen and discussed with fellow, to be discussed with attending Janelle Jacques MD Colorectal Surgery Cosigned by Greyson Reeves MD at 04/22/2019 7:59 AM CDT * Wili Dye MD - 04/21/2019 11:56 AM CDT Endocrine Diabetes Inpatient Follow Up 04/21/2019 [facility] [id number] Julio César Briseno MD Admit Date: 04/12/2019 Length of Stay: 9 SUBJECTIVE: The patient is a 68 yo F with metastatic ileal neuroendocrine tumor, presenting with a large bowel obstruction, now on POD#8 s/p Ex Lap + End colostomy. Endocrine consulted for hypocalcemia. ?? Interval History: Had on episode of vomiting overnight. Denies numbness or tingling or CP. Blood sugar: Recent Labs Lab Units 04/20/19 2222 04/20/19 0607 04/19/19 1814 04/19/19 0637 04/18/19 1833 04/18/19 0642 04/17/19 1851 04/17/19 1303 04/17/19 0943 04/17/19 0618 GLUCOSE mg/dL 128 110 106 113 125 119 274* 263* 103 237* Review of Systems All systems were review and are negative except specified in HPI Vitals: 04/20/19 2000 04/21/19 0030 04/21/19 0455 04/21/19 0757 BP: 154/59 156/66 161/65 135/76 BP Location: Right arm Right arm Patient Position: Sitting Pulse: 82 73 75 85 Resp: 18 Temp: 37 ??C (98.6 ??F) 36.7 ??C (98.1 ??F) 36.8 ??C (98.2 ??F) 37 ??C (98.6 ??F) TempSrc: Oral Oral SpO2: 94% Weight: Height: I/O this shift: In: - Out: 325 [Urine:250; Stool:75] Physical Exam General: Alert, no acute distress HENT: mucus membranes are moist, no oral lesions, NG tube Eyes: Sclera anicteric, EOMI, no proptosis Lungs: normal effort, clear to ascultation anteriorly Heart: regular rate, normal rhythm, no murmur appreciated Abdomen: soft, non-tender, + ostomy Extremities: no lower extremity edema, warm, well perfused Neuro: grossly intact, alert and oriented x 3. No Chvostek's sign Skin: No rash LAB/IMAGING: Recent Results (from the past 24 hour(s)) Calcium, ionized Collection Time: 04/20/19 5:39 PM Result Value Ref Range Calcium, Ionized 5.16 (H) 4.50 - 5.10 mg/dL Potassium, whole blood Collection Time: 04/20/19 5:39 PM Result Value Ref Range Potassium, bld 3.2 (L) 3.3 - 4.9 mmol/L Basic metabolic panel Collection Time: 04/20/19 10:22 PM Result Value Ref Range Sodium 140 135 - 145 mmol/L Potassium, pl 3.1 (L) 3.3 - 4.9 mmol/L Chloride 104 97 - 110 mmol/L CO2 28 22 - 32 mmol/L Anion gap 8 2 - 15 mmol/L BUN 6 (L) 8 - 25 mg/dL Creatinine 0.66 0.60 - 1.10 mg/dL Glucose 128 70 - 199 mg/dL Calcium 9.2 8.5 - 10.3 mg/dL Magnesium Collection Time: 04/20/19 10:22 PM Result Value Ref Range Magnesium 1.8 1.4 - 2.5 mg/dL Phosphorus Collection Time: 04/20/19 10:22 PM Result Value Ref Range Phosphorus, pl 2.6 2.3 - 4.5 mg/dL Vitamin D 25 hydroxy Collection Time: 04/20/19 10:22 PM Result Value Ref Range Vitamin D, 25-hydroxy 34 30 - 80 ng/mL Calcium, ionized Collection Time: 04/21/19 5:48 AM Result Value Ref Range Calcium, Ionized 4.95 4.50 - 5.10 mg/dL Lab Results Component Value Date PTH 554 (H) 04/14/2019 Assessment/Plan Hypocalcemia Assessment & Plan History of elevated serum Ca to 11.1, thought 2/2 metastatic bony disease. Received denosumab 03/30 120mg SQ. Ca on presentation to [facility] 8.2; following surgical procedure, Ca acutely [...] elemental calcium TID and cholecalciferol 5000 units everyday. 25 OH vitamin D: 34 Recs: - Decrease tumbs to 2500 (1000 mg elemental calcium) every day - Continue on cholecalciferol 5000 units every day while hospitalized. Upon discharge, reduce to cholecalciferol 2000 units every day - Denosumab induced hypocalcemia may require significant po supplementation at discharge; recommendagainst scheduled repeat dose. Can consider Zometa as part of the treatment for bone health in the setting bone metastasis in a future. Wili Thorne MD Endocrinology Fellow Cosigned by Patience Kirkpatrick MD at 04/21/2019 3:56 PM CDT Associated attestation - Patience Kirkpatrick MD - 04/21/2019 3:56 PM CDT I have seen and examined the patient on 04/21/19. I agree with the findings and plan of care as documented in the resident's/fellow's note and with the following modifications:: . She takes vitamin D3 25232 international units daily and has been on this dose for years. Can resume on discharge. * Janelle Jacques MD - 04/21/2019 7:27 AM CDT CRS Progress Note Subjective The patient is a 68 yo F with metastatic ileal neuroendocrine tumor, presenting with a large bowel obstruction, now s/p Ex Lap + End colostomy Interval History: No acute events overnight. Wound ostomy visit yesterday - leaking pouch. No nausea/vomiting, voiding without difficulty. Repletion for hypokalemia. Objective Vitals: 24hr Min/Max: Temp Min: 36.7 ??C (98.1 ??F) Max: 37 ??C (98.6 ??F) Pulse Min: 73 Max: 87 BP Min: 133/68 Max: 161/65 Resp Min: 16 Max: 17 SpO2 Min: 93 % Max: 94 % Most Recent : Vitals: 04/21/19 0455 BP: 161/65 Pulse: 75 Resp: Temp: 36.8 ??C (98.2 ??F) SpO2: 94% I/O last 2 completed shifts: In: 840 [P.O.:820; I.V.:20] Out: 2675 [Urine:2000; Stool:675] No intake/output data recorded. Physical Exam: Physical Exam Constitutional: She is oriented to person, place, and time. She appears well- developed and well-nourished. HENT: Head: Normocephalic and atraumatic. Eyes: Pupils are equal, round, and reactive to light. Conjunctivae are normal. Cardiovascular: Normal rate and regular rhythm. Pulmonary/Chest: Effort normal. Abdominal: Incision c/d/i, abdomen soft, non-distended, TTP around incision, no rebound, no rigidity Colostomy pink and healthy, mildly retracted, scant stool in bag. Musculoskeletal: Normal range of motion. Neurological: She is alert and oriented to person, place, and time. Skin: Skin is warm and dry. Lab/Radiology/Diagnostic Review: Laboratory review: Lab results in the last 24 hours: Recent Results (from the past 24 hour(s)) Calcium, ionized Collection Time: 04/20/19 5:39 PM Result Value Ref Range Calcium, Ionized 5.16 (H) 4.50 - 5.10 mg/dL Potassium, whole blood Collection Time: 04/20/19 5:39 PM Result Value Ref Range Potassium, bld 3.2 (L) 3.3 - 4.9 mmol/L Basic metabolic panel Collection Time: 04/20/19 10:22 PM Result Value Ref Range Sodium 140 135 - 145 mmol/L Potassium, pl 3.1 (L) 3.3 - 4.9 mmol/L Chloride 104 97 - 110 mmol/L CO2 28 22 - 32 mmol/L Anion gap 8 2 - 15 mmol/L BUN 6 (L) 8 - 25 mg/dL Creatinine 0.66 0.60 - 1.10 mg/dL Glucose 128 70 - 199 mg/dL Calcium 9.2 8.5 - 10.3 mg/dL Magnesium Collection Time: 04/20/19 10:22 PM Result Value Ref Range Magnesium 1.8 1.4 - 2.5 mg/dL Phosphorus Collection Time: 04/20/19 10:22 PM Result Value Ref Range Phosphorus, pl 2.6 2.3 - 4.5 mg/dL Vitamin D 25 hydroxy Collection Time: 04/20/19 10:22 PM Result Value Ref Range Vitamin D, 25-hydroxy 34 30 - 80 ng/mL Calcium, ionized Collection Time: 04/21/19 5:48 AM Result Value Ref Range Calcium, Ionized 4.95 4.50 - 5.10 mg/dL Assessment /Plan Problem List Items Addressed This Visit Digestive * (Principal) Large bowel obstruction (CMS/HCC) - Primary Relevant Orders Case Request Operating Room: EXPLORATORY LAPAROTOMY, COLOSTOMY, RESECTION SMALL BOWEL (Completed) Ambulatory referral to Home Health Other Neuroendocrine carcinoma (CMS/HCC) Relevant Orders Ambulatory referral to Home Health Other Visit Diagnoses Acute postoperative abdominal pain The patient is a 68 yo F with a PMH remarkable for HLD, HTN, and 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 Currently on peptide receptor radionuclide therapy, octreotide, now admitted due to large bowel obstruction. Now s/p Ex Lap + End colostomy. Plan: - Reg diet - oxybutynin TID for overactive bladder - continue Vit D supplementation, PRN calcium repletion, endocrinology following - Acute pain control- tylenol, gabapentin, PRN oxycodone - Continue home statin and BP meds - DVT ppx: Lovenox, SCDs - OOB, ambulate - BMP q6h + iCal q6h - PT/OT, OOB - ostomy teaching Seen and discussed with fellow, to be discussed with attending Janelle Jacques MD Colorectal Surgery Cosigned by Greyson Reeves MD at 04/21/2019 9:49 AM CDT * Wili Dye MD - 04/20/2019 3:23 PM CDT Endocrine Diabetes Inpatient Follow Up 04/20/2019 [facility] [id number] Julio César Briseno MD Admit Date: 04/12/2019 Length of Stay: 8 SUBJECTIVE: The patient is a 68 yo F with metastatic ileal neuroendocrine tumor, presenting with a large bowel obstruction, now on POD#7 s/p Ex Lap + End colostomy. Endocrine consulted for hypocalcemia. ?? Interval History: Hypertensive overnight. Denies ausea/vomiting. Denies numbness or tingling or CP. Blood sugar: Recent Labs Lab Units 04/20/19 0607 04/19/19 1814 04/19/19 0637 04/18/19 1833 04/18/19 0642 04/17/19 1851 04/17/19 1303 04/17/19 0943 04/17/19 0618 04/17/19 0512 GLUCOSE mg/dL 110 106 113 125 119 274* 263* 103 237* 112 Review of Systems All systems were review and are negative except specified in HPI Vitals: 04/20/19 0135 04/20/19 0515 04/20/19 0715 04/20/19 1130 BP: 163/66 161/73 165/67 133/68 BP Location: Right arm Right arm Right arm Pulse: 80 84 86 87 Resp: 16 17 17 Temp: 37.2 ??C (99 ??F) 37 ??C (98.6 ??F) 36.9 ??C (98.4 ??F) TempSrc: Oral Oral Oral SpO2: 91% 94% 93% Weight: Height: I/O this shift: In: 290 [P.O.:270; I.V.:20] Out: 825 [Urine:600; Stool:225] Physical Exam General: Alert, no acute distress HENT: mucus membranes are moist, no oral lesions, NG tube Eyes: Sclera anicteric, EOMI, no proptosis Lungs: normal effort, clear to ascultation anteriorly Heart: regular rate, normal rhythm, no murmur appreciated Abdomen: soft, non-tender, + ostomy Extremities: no lower extremity edema, warm, well perfused Neuro: grossly intact, alert and oriented x 3. No Chvostek's sign Skin: No rash LAB/IMAGING: Recent Results (from the past 24 hour(s)) Calcium, ionized Collection Time: 04/19/19 6:14 PM Result Value Ref Range Calcium, Ionized 5.04 4.50 - 5.10 mg/dL Basic metabolic panel Collection Time: 04/19/19 6:14 PM Result Value Ref Range Sodium 138 135 - 145 mmol/L Potassium, pl 2.9 (L) 3.3 - 4.9 mmol/L Chloride 102 97 - 110 mmol/L CO2 28 22 - 32 mmol/L Anion gap 8 2 - 15 mmol/L BUN 4 (L) 8 - 25 mg/dL Creatinine 0.56 (L) 0.60 - 1.10 mg/dL Glucose 106 70 - 199 mg/dL Calcium 9.4 8.5 - 10.3 mg/dL Magnesium Collection Time: 04/19/19 10:10 PM Result Value Ref Range Magnesium 1.7 1.4 - 2.5 mg/dL Phosphorus Collection Time: 04/19/19 10:10 PM Result Value Ref Range Phosphorus, pl 2.4 2.3 - 4.5 mg/dL CBC without differential Collection Time: 04/19/19 10:10 PM Result Value Ref Range WBC 5.6 3.8 - 9.9 K/cumm Hgb 10.0 (L) 11.9 - 15.5 g/dL Hct 29.5 (L) 35.6 - 45.5 % Plt 137 (L) 150 - 400 K/cumm MPV 10.9 9.1 - 12.3 fL RBC 3.35 (L) 3.90 - 5.20 M/cumm MCV 88.1 81.3 - 96.4 fL MCH 29.9 27.1 - 33.3 pg MCHC 33.9 32.3 - 35.7 g/dL RDW CV 15.3 (H) 11.1 - 14.9 % RDW SD 49.1 (H) 35.7 - 48.1 fL NRBC abs 0.00 0.00 - 0.01 K/cumm Calcium, ionized Collection Time: 04/20/19 6:07 AM Result Value Ref Range Calcium, Ionized 4.93 4.50 - 5.10 mg/dL Basic metabolic panel Collection Time: 04/20/19 6:07 AM Result Value Ref Range Sodium 141 135 - 145 mmol/L Potassium, pl 3.4 3.3 - 4.9 mmol/L Chloride 105 97 - 110 mmol/L CO2 29 22 - 32 mmol/L Anion gap 7 2 - 15 mmol/L BUN 4 (L) 8 - 25 mg/dL Creatinine 0.60 0.60 - 1.10 mg/dL Glucose 110 70 - 199 mg/dL Calcium 8.9 8.5 - 10.3 mg/dL Albumin Collection Time: 04/20/19 6:07 AM Result Value Ref Range Albumin 2.9 (L) 3.5 - 5.0 g/dL Lab Results Component Value Date PTH 554 (H) 04/14/2019 Assessment/Plan ANNE-MARIE (acute kidney injury) (CMS/HCC) Assessment & Plan Now appears resolved with normalized creatinine; however UOP appears low despite aggressive volume resuscitation. - Recommend continued monitoring Hypocalcemia Assessment & Plan History of elevated serum Ca to 11.1, thought 2/2 metastatic bony disease. Received denosumab 03/30 120mg SQ. Ca on presentation to [facility] 8.2; following surgical procedure, Ca acutely [...] may require significant po supplementation at discharge; recommendagainst scheduled repeat dose Wili Thorne MD Endocrinology Fellow Cosigned by Patience Kirkpatrick MD at 04/20/2019 4:04 PM CDT Associated attestation - Patience Kirkpatrcik MD - 04/20/2019 4:04 PM CDT I have seen and examined the patient on 04/20/19. I agree with the findings and plan of care as documented in the resident's/fellow's note. * Mariusz Trejo, RD - 04/20/2019 11:20 AM CDT Nutrition Screen Note Pt. Screened for nutritional assessment secondary to LOS Past Medical History: Diagnosis Date ??? Cancer [...] > 5 YEARS N/A 02/17/2019 ? ? IA REMOVAL OF TONSILS,<12 Y/O Tonsillectomy - (Added by [facility]) ??? IA TOTAL ABDOM HYSTERECTOMY Hysterectomy - (Added by [facility]) Anthropometrics Weight: 81.6 kg (180 lb) Weight Change: 1.72 kg (3.80 lbs) IBW/kg (Calculated) : 52.2 kg Height: 160 cm (5' 3 ) Weight in (lb) to have BMI = 25: 140.8 BMI (Calculated): 31.9 Dietary Orders (From admission, onward) Start Ordered 04/18/19 0748 Adult Diet Regular Diet effective now Question: ([facility]) Diet type Answer: Regular 04/18/19 0747 Wt Readings from Last 10 Encounters: 04/12/19 81.6 kg (180 lb) 03/30/19 79.9 kg (176 lb 3.2 oz) 02/18/19 81.6 kg (179 lb 14.4 oz) 12/24/18 82.7 kg (182 lb 5.1 oz) 12/24/18 81.9 kg (180 lb 9.6 oz) 11/25/18 83.5 kg (184 lb) 11/24/18 82.7 kg (182 lb 6.4 oz) 11/19/18 83.5 kg (184 lb) 10/21/18 83.5 kg (184 lb) 10/13/18 83.5 kg (184 lb) Assessment / Impression: RD screened pt at nutritional risk d/t LOS. Pt is s/p Ex Lap w/ End Colostomy, has hx of BSO, Partial Omentectomy, and R colectomy 09/2015. Pt has been advanced to Regular diet, having colostomy output on 04/20 that is starting to thicken up, and denies N/V, difficulty chewing or swallowing, no abdominal pain or bloating, only appetite below baseline. RD encouraged oral diet w/ soft bland choices to initiate diet as pt was mostly taking in liquids and had 1 small meal with solids. Pt has no significant weight hx to report, CBC may be c/f poor Iron status. RD will continue to follow POC for further intervention as needed, has no direct interventional needs at this time, would recommend Chewable MVI w/ minerals at baseline. Mariusz Trejo MS, RD, LDN [phone] * Janelle Jacques MD - 04/20/2019 5:29 AM CDT CRS Progress Note Subjective The patient is a 68 yo F with metastatic ileal neuroendocrine tumor, presenting with a large bowel obstruction, now on POD#7 s/p Ex Lap + End colostomy Interval History: Hypertensive overnight (BP 160s-170s). Ditropan for overactive bladder symptoms. Discontinued epidural.Reports doing well this morning, no nausea/vomiting, voiding without difficulty. Oral repletion for hypokalemia (2.9). Objective Vitals: 24hr Min/Max: Temp Min: 36.6 ??C (97.9 ??F) Max: 37.2 ??C (99 ??F) Pulse Min: 80 Max: 98 BP Min: 149/74 Max: 175/79 Resp Min: 16 Max: 17 SpO2 Min: 91 % Max: 96 % Most Recent : Vitals: 04/20/19 0515 BP: 161/73 Pulse: 84 Resp: 16 Temp: 37.2 ??C (99 ??F) SpO2: 91% I/O last 2 completed shifts: In: 500 [P.O.:240; IV Piggyback:260] Out: 1500 [Urine:1050; Stool:450] I/O this shift: In: 520 [IV Piggyback:520] Out: 500 [Urine:200; Stool:300] Physical Exam: Physical Exam Constitutional: She is oriented to person, place, and time. She appears well- developed and well-nourished. HENT: Head: Normocephalic and atraumatic. Eyes: Pupils are equal, round, and reactive to light. Conjunctivae are normal. Cardiovascular: Normal rate and regular rhythm. Pulmonary/Chest: Effort normal. Abdominal: Incision c/d/i, abdomen soft, non-distended, TTP around incision, no rebound, no rigidity Colostomy pink and healthy, mildly retracted, scant stool in bag. Musculoskeletal: Normal range of motion. Neurological: She is alert and oriented to person, place, and time. Skin: Skin is warm and dry. Lab/Radiology/Diagnostic Review: Laboratory review: Lab results in the last 24 hours: Recent Results (from the past 24 hour(s)) Calcium, ionized Collection Time: 04/19/19 6:37 AM Result Value Ref Range Calcium, Ionized 4.88 4.50 - 5.10 mg/dL Basic metabolic panel Collection Time: 04/19/19 6:37 AM Result Value Ref Range Sodium 143 135 - 145 mmol/L Potassium, pl 3.4 3.3 - 4.9 mmol/L Chloride 106 97 - 110 mmol/L CO2 28 22 - 32 mmol/L Anion gap 9 2 - 15 mmol/L BUN 2 (L) 8 - 25 mg/dL Creatinine 0.56 (L) 0.60 - 1.10 mg/dL Glucose 113 70 - 199 mg/dL Calcium 9.4 8.5 - 10.3 mg/dL Calcium, ionized Collection Time: 04/19/19 6:14 PM Result Value Ref Range Calcium, Ionized 5.04 4.50 - 5.10 mg/dL Basic metabolic panel Collection Time: 04/19/19 6:14 PM Result Value Ref Range Sodium 138 135 - 145 mmol/L Potassium, pl 2.9 (L) 3.3 - 4.9 mmol/L Chloride 102 97 - 110 mmol/L CO2 28 22 - 32 mmol/L Anion gap 8 2 - 15 mmol/L BUN 4 (L) 8 - 25 mg/dL Creatinine 0.56 (L) 0.60 - 1.10 mg/dL Glucose 106 70 - 199 mg/dL Calcium 9.4 8.5 - 10.3 mg/dL Magnesium Collection Time: 04/19/19 10:10 PM Result Value Ref Range Magnesium 1.7 1.4 - 2.5 mg/dL Phosphorus Collection Time: 04/19/19 10:10 PM Result Value Ref Range Phosphorus, pl 2.4 2.3 - 4.5 mg/dL CBC without differential Collection Time: 04/19/19 10:10 PM Result Value Ref Range WBC 5.6 3.8 - 9.9 K/cumm Hgb 10.0 (L) 11.9 - 15.5 g/dL Hct 29.5 (L) 35.6 - 45.5 % Plt 137 (L) 150 - 400 K/cumm MPV 10.9 9.1 - 12.3 fL RBC 3.35 (L) 3.90 - 5.20 M/cumm MCV 88.1 81.3 - 96.4 fL MCH 29.9 27.1 - 33.3 pg MCHC 33.9 32.3 - 35.7 g/dL RDW CV 15.3 (H) 11.1 - 14.9 % RDW SD 49.1 (H) 35.7 - 48.1 fL NRBC abs 0.00 0.00 - 0.01 K/cumm Assessment /Plan Problem List Items Addressed This Visit Digestive * (Principal) Large bowel obstruction (CMS/HCC) - Primary Relevant Orders Case Request Operating Room: EXPLORATORY LAPAROTOMY, COLOSTOMY, RESECTION SMALL BOWEL (Completed) Ambulatory referral to Home Health Other Neuroendocrine carcinoma (CMS/HCC) Relevant Orders Ambulatory referral to Home Health Other Visit Diagnoses Acute postoperative abdominal pain The patient is a 68 yo F with a PMH remarkable for HLD, HTN, and 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 Currently on peptide receptor radionuclide therapy, octreotide, now admitted due to large bowel obstruction. Now on POD#7 s/p Ex Lap + End colostomy. Plan: - Reg diet - oxybutynin TID for overactive bladder - continue Vit D supplementation, PRN calcium repletion, endocrinology following - Acute pain control- tylenol, gabapentin, PRN oxycodone, d/c dilaudid - Continue home statin and BP meds - DVT ppx: Lovenox, SCDs - OOB, ambulate - BMP q6h + iCal q6h - PT/OT, OOB - ostomy teaching Seen and discussed with fellow, to be discussed with attending Janelle Jacques MD Colorectal Surgery Cosigned by Greyson Reeves MD at 04/20/2019 7:13 AM CDT * Chalino Claire - 04/19/2019 5:14 PM CDT Spiritual Care Note Chaplain Zafar Claire 04/19/2019 04/19/19 1700 Time Spent Start Time 1530 Stop Time 1545 Time Calculation (min) 15 min Patient Spiritual Assessment Spirituality Assessed Yes Jewish Affiliation Quaker Active in Restorationism Yes Spiritual Needs Communion Clinical Encounter Type Visited With Patient Response Type Continuing visit Routine Visit Follow-up Continue Visiting Yes Reason for visit Jewish needs Referral From Nurse Sacramental Encounters Communion Patient wants communion Communion Given Indicator Yes Outcomes and Interventions Outcomes Minnei affirmation;Sense of peace Interventions Prayer;Active listening;Offer spiritual/mormon support * Neto Moss MD - 04/19/2019 11:48 AM CDT CRS Progress Note Subjective The patient is a 68 yo F with metastatic ileal neuroendocrine tumor, presenting with a large bowel obstruction, now on POD#6 s/p Ex Lap + End colostomy NAEON. Pain controlled. Complains of urinary frequency and urge incontinence. Has leakage around ostomy site. Tolerating diet, no n/v. OOB, ambulating. Good UOP. Good ostomy output. Objective Vitals: 24hr Min/Max: Temp Min: 36.2 ??C (97.2 ??F) Max: 37 ??C (98.6 ??F) Pulse Min: 70 Max: 83 BP Min: 145/67 Max: 196/77 Resp Min: 16 Max: 16 SpO2 Min: 92 % Max: 96 % Most Recent : Vitals: 04/19/19 0655 BP: 165/69 Pulse: 81 Resp: Temp: 37 ??C (98.6 ??F) SpO2: 96% I/O last 2 completed shifts: In: 0 Out: 2425 [Urine:1750; Stool:675] I/O this shift: In: - Out: 400 [Urine:400] Physical Exam: Physical Exam Constitutional: She is oriented to person, place, and time. She appears well- developed and well-nourished. HENT: Head: Normocephalic and atraumatic. Eyes: Pupils are equal, round, and reactive to light. Conjunctivae are normal. Cardiovascular: Normal rate and regular rhythm. Pulmonary/Chest: Effort normal. Abdominal: Incision c/d/i, abdomen soft, non-distended, TTP around incision, no rebound, no rigidity Colostomy pink and healthy, mildly retracted, scant stool in bag. Musculoskeletal: Normal range of motion. Neurological: She is alert and oriented to person, place, and time. Skin: Skin is warm and dry. Lab/Radiology/Diagnostic Review: Laboratory review: Lab results in the last 24 hours: Recent Results (from the past 24 hour(s)) Calcium, ionized Collection Time: 04/18/19 6:33 PM Result Value Ref Range Calcium, Ionized 4.83 4.50 - 5.10 mg/dL Basic metabolic panel Collection Time: 04/18/19 6:33 PM Result Value Ref Range Sodium 141 135 - 145 mmol/L Potassium, pl 2.8 (L) 3.3 - 4.9 mmol/L Chloride 107 97 - 110 mmol/L CO2 26 22 - 32 mmol/L Anion gap 8 2 - 15 mmol/L BUN 3 (L) 8 - 25 mg/dL Creatinine 0.53 (L) 0.60 - 1.10 mg/dL Glucose 125 70 - 199 mg/dL Calcium 8.4 (L) 8.5 - 10.3 mg/dL CBC without differential Collection Time: 04/18/19 9:43 PM Result Value Ref Range WBC 5.2 3.8 - 9.9 K/cumm Hgb 9.4 (L) 11.9 - 15.5 g/dL Hct 28.5 (L) 35.6 - 45.5 % Plt 121 (L) 150 - 400 K/cumm MPV 11.1 9.1 - 12.3 fL RBC 3.25 (L) 3.90 - 5.20 M/cumm MCV 87.7 81.3 - 96.4 fL MCH 28.9 27.1 - 33.3 pg MCHC 33.0 32.3 - 35.7 g/dL RDW CV 15.5 (H) 11.1 - 14.9 % RDW SD 49.4 (H) 35.7 - 48.1 fL NRBC abs 0.00 0.00 - 0.01 K/cumm Magnesium Collection Time: 04/18/19 9:43 PM Result Value Ref Range Magnesium 1.6 1.4 - 2.5 mg/dL Phosphorus Collection Time: 04/18/19 9:43 PM Result Value Ref Range Phosphorus, pl 1.9 (L) 2.3 - 4.5 mg/dL Calcium, ionized Collection Time: 04/19/19 6:37 AM Result Value Ref Range Calcium, Ionized 4.88 4.50 - 5.10 mg/dL Basic metabolic panel Collection Time: 04/19/19 6:37 AM Result Value Ref Range Sodium 143 135 - 145 mmol/L Potassium, pl 3.4 3.3 - 4.9 mmol/L Chloride 106 97 - 110 mmol/L CO2 28 22 - 32 mmol/L Anion gap 9 2 - 15 mmol/L BUN 2 (L) 8 - 25 mg/dL Creatinine 0.56 (L) 0.60 - 1.10 mg/dL Glucose 113 70 - 199 mg/dL Calcium 9.4 8.5 - 10.3 mg/dL Assessment /Plan Problem List Items Addressed This Visit Digestive * (Principal) Large bowel obstruction (CMS/HCC) - Primary Relevant Orders Case Request Operating Room: EXPLORATORY LAPAROTOMY, COLOSTOMY, RESECTION SMALL BOWEL (Completed) Ambulatory referral to Home Health Other Neuroendocrine carcinoma (CMS/HCC) Relevant Orders Ambulatory referral to Home Health Other Visit Diagnoses Acute postoperative abdominal pain The patient is a 68 yo F with a PMH remarkable for HLD, HTN, and 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 Currently on peptide receptor radionuclide therapy, octreotide, now admitted due to large bowel obstruction. Now on POD#6 s/p Ex Lap + End colostomy. Plan: - Reg diet - oxybutynin TID for overactive bladder - continue Vit D supplementation, PRN calcium repletion, endocrinology following - Acute pain control. Pain management to d/c epidural today - restart simvastatin - start losartan+HCTZ for HTN, continue home BP meds on discharge - OOB, ambulate - restart Lovenox - BMP q6h + iCal q6h, CBC in PM - PT/OT, OOB - ostomy teaching Seen and discussed with fellow, to be discussed with attending Neto Moss MD Colorectal Surgery Cosigned by Greyson Reeves MD at 04/19/2019 2:14 PM CDT * Shruti Ralph MD - 04/18/2019 1:19 PM CDT Acute Pain Service Follow Up Note Epidural catheter removed. Tip intact. We will sign off at this time. Please call with any questions. Shruti Ralph M.D. Resident, Pain Management, Department of Anesthesiology [facility], [facility] 04/18/2019 1:19 PM Cosigned by Aleksandra Gonzalez MD at 04/19/2019 8:55 AM CDT * Neto Moss MD - 04/18/2019 10:23 AM CDT CRS Progress Note Subjective The patient is a 68 yo F with metastatic ileal neuroendocrine tumor, presenting with a large bowel obstruction, now on POD#5 s/p Ex Lap + End colostomy NAEON. Pain controlled. Tolerating CLD, no n/v. Having small volume ostomy output. Reports leakage around ostomy bag. Hypertensive to 150s-160s systolic overnight, asymptomatic. Repleted with 4g calcium gluconate overnight for hypocalcemia. Denies numbness/tingling. Objective Vitals: 24hr Min/Max: Temp Min: 36.2 ??C (97.2 ??F) Max: 37.2 ??C (99 ??F) Pulse Min: 66 Max: 77 BP Min: 139/56 Max: 170/67 Resp Min: 16 Max: 19 SpO2 Min: 92 % Max: 100 % Most Recent : Vitals: 04/18/19 0900 BP: 143/63 Pulse: 76 Resp: 16 Temp: 36.2 ??C (97.2 ??F) SpO2: 92% I/O last 2 completed shifts: In: 497.9 [Blood:497.9] Out: 450 [Urine:400; Stool:50] I/O this shift: In: - Out: 725 [Urine:400; Stool:325] Physical Exam: Physical Exam Constitutional: She is oriented to person, place, and time. She appears well- developed and well-nourished. HENT: Head: Normocephalic and atraumatic. Eyes: Pupils are equal, round, and reactive to light. Conjunctivae are normal. Cardiovascular: Normal rate and regular rhythm. Pulmonary/Chest: Effort normal. Abdominal: Incision c/d/i, abdomen soft, non-distended, TTP around incision, no rebound, no rigidity Colostomy pink and healthy, mildly retracted, scant stool in bag. Musculoskeletal: Normal range of motion. Neurological: She is alert and oriented to person, place, and time. Skin: Skin is warm and dry. Lab/Radiology/Diagnostic Review: Laboratory review: Lab results in the last 24 hours: Recent Results (from the past 24 hour(s)) Basic metabolic panel Collection Time: 04/17/19 1:03 PM Result Value Ref Range Sodium 138 135 - 145 mmol/L Potassium, pl 3.3 3.3 - 4.9 mmol/L Chloride 110 97 - 110 mmol/L CO2 19 (L) 22 - 32 mmol/L Anion gap 9 2 - 15 mmol/L BUN 5 (L) 8 - 25 mg/dL Creatinine 0.52 (L) 0.60 - 1.10 mg/dL Glucose 263 (H) 70 - 199 mg/dL Calcium 7.4 (L) 8.5 - 10.3 mg/dL Calcium, ionized Collection Time: 04/17/19 1:03 PM Result Value Ref Range Calcium, Ionized 4.54 4.50 - 5.10 mg/dL Calcium, ionized Collection Time: 04/17/19 6:51 PM Result Value Ref Range Calcium, Ionized 3.87 (L) 4.50 - 5.10 mg/dL Basic metabolic panel Collection Time: 04/17/19 6:51 PM Result Value Ref Range Sodium 139 135 - 145 mmol/L Potassium, pl 8.8 (Critical) 3.3 - 4.9 mmol/L Chloride 112 (H) 97 - 110 mmol/L CO2 19 (L) 22 - 32 mmol/L Anion gap 8 2 - 15 mmol/L BUN 5 (L) 8 - 25 mg/dL Creatinine 0.50 (L) 0.60 - 1.10 mg/dL Glucose 274 (H) 70 - 199 mg/dL Calcium 6.8 (L) 8.5 - 10.3 mg/dL Critical Result Callback Chemistry Collection Time: 04/17/19 6:51 PM Result Value Ref Range Date Notified [id number] Time Notified 1948 TestName Potassium Plas Called/Read Back gaby Perkinsentials RN Called By mercedes Potassium, whole blood Collection Time: 04/17/19 8:06 PM Result Value Ref Range Potassium, bld 3.5 3.3 - 4.9 mmol/L CBC with auto differential Collection Time: 04/17/19 10:47 PM Result Value Ref Range WBC 4.2 3.8 - 9.9 K/cumm Hgb 8.9 (L) 11.9 - 15.5 g/dL Hct 27.3 (L) 35.6 - 45.5 % Plt 95 (L) 150 - 400 K/cumm MPV 10.6 9.1 - 12.3 fL RBC 3.06 (L) 3.90 - 5.20 M/cumm MCV 89.2 81.3 - 96.4 fL MCH 29.1 27.1 - 33.3 pg MCHC 32.6 32.3 - 35.7 g/dL RDW CV 15.6 (H) 11.1 - 14.9 % RDW SD 50.8 (H) 35.7 - 48.1 fL NRBC abs 0.00 0.00 - 0.01 K/cumm Magnesium Collection Time: 04/17/19 10:47 PM Result Value Ref Range Magnesium 2.0 1.4 - 2.5 mg/dL Phosphorus Collection Time: 04/17/19 10:47 PM Result Value Ref Range Phosphorus, pl 1.4 (L) 2.3 - 4.5 mg/dL Differential, auto Collection Time: 04/17/19 10:47 PM Result Value Ref Range Neutrophil abs 3.3 1.7 - 6.5 K/cumm Imm gran abs 0.1 0.0 - 0.1 K/cumm Lymphocyte abs 0.2 (L) 0.8 - 3.3 K/cumm Monocyte abs 0.5 0.2 - 0.8 K/cumm Eosinophil abs 0.1 0.0 - 0.5 K/cumm Basophil abs 0.0 0.0 - 0.1 K/cumm Neutrophil pct 78.1 % Imm gran pct 2.4 % Lymphocyte pct 4.8 % Monocyte pct 11.8 % Eosinophil pct 2.4 % Basophil pct 0.5 % Calcium, ionized Collection Time: 04/18/19 6:42 AM Result Value Ref Range Calcium, Ionized 4.90 4.50 - 5.10 mg/dL Basic metabolic panel Collection Time: 04/18/19 6:42 AM Result Value Ref Range Sodium 142 135 - 145 mmol/L Potassium, pl 3.1 (L) 3.3 - 4.9 mmol/L Chloride 110 97 - 110 mmol/L CO2 24 22 - 32 mmol/L Anion gap 8 2 - 15 mmol/L BUN 3 (L) 8 - 25 mg/dL Creatinine 0.54 (L) 0.60 - 1.10 mg/dL Glucose 119 70 - 199 mg/dL Calcium 8.5 8.5 - 10.3 mg/dL Assessment /Plan Problem List Items Addressed This Visit Digestive * (Principal) Large bowel obstruction (CMS/HCC) - Primary Relevant Orders Case Request Operating Room: EXPLORATORY LAPAROTOMY, COLOSTOMY, RESECTION SMALL BOWEL (Completed) Ambulatory referral to Home Health Other Neuroendocrine carcinoma (CMS/HCC) Relevant Orders Ambulatory referral to Home Health Other Visit Diagnoses Acute postoperative abdominal pain The patient is a 68 yo F with a PMH remarkable for HLD, HTN, and 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 Currently on peptide receptor radionuclide therapy, octreotide, now admitted due to large bowel obstruction. Now on POD#5 s/p Ex Lap + End colostomy. Plan: - Advance to regular diet - SLIV - continue Vit D supplementation, PRN calcium repletion, endocrinology following - Acute pain control. Pain management to d/c epidural today - restart simvastatin - start losartan+HCTZ for HTN, continue home BP meds on discharge - OOB - restart Lovenox - BMP q6h + iCal q6h, CBC in PM - PT/OT, OOB Seen and discussed with fellow, to be discussed with attending Neto Moss MD Colorectal Surgery Cosigned by Greyson Reeves MD at 04/19/2019 2:16 PM CDT * Shruti Ralph MD - 04/18/2019 8:09 AM CDT Acute Pain Service Analgesic Catheter Follow up Note Subjective Patient is a??68-year-old female with history of neuroendocrine carcinoma s/p exploratory laparotomy, bilateral salpingo-oophorectomy, partial omentectomy, peritoneal biopsies, right colectomy (10/03/15), 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 Patient underwent thoracic epidural catheter placement prior to exploratory laparotomy and colostomy (04/13/19). Acute Pain Service following for acute post-operative pain. POD#: 4 Catheter Day#: 5 Surgery: EXPLORATORY LAPAROTOMY (N/A); COLOSTOMY (N/A) (04/13/19) Subjective: Patient reports acute post-operative pain related to her abdominal incisions that is significantly improved compared to yesterday. Pain with same location and same characteristics. Pain worse with coughing and movement. Pain improves with rest. Pain is non-radiating. Pain is currently 0/10 at rest,worsens to 4/10 with coughing or with movement. Pain gradually improving since surgery. Patient reports that her APAP, duloxetine, gabapentin, oxycodone PRN, and epidural provide relief. Denies symptoms of LAST. Denies side effects from her medications. Endorses new bilateral lower extremity swelling that is painless and not associated with skin changes. ?? No acute events overnight. Received 1U RBC yesterday. Voiding spontaneously. Passing stool. Current medication regimen: APAP 1000 mg Q8H MAUREEN, gabapentin 200 mg PT BID, duloxetine 30 mg QD, bupivicaine at 8 ml/hr, oxycodone 5 mg Q4H PRN, hydromorphone 0.2 mg Q4H PRN. In past 24 hours, received oxycodone 10 mg and hydromorphone 0.2 mg. Anticoagulant: enoxaparin 40 mg SQ QHS for PPX (confirmed held PM dose on 04/17/19) ?? VS stable overnight. ?? Laboratory studies notable for WBC 4.2, HH 8.9/27.3, plt 95. No new imaging. ?? Verbal Pain Score (0-10): Pain is currently 0/10 at rest, worsens to 4/10 with coughing and movement. Objective: Temp: [36.4 ??C (97.5 ??F)-37.2 ??C (99 ??F)] 36.4 ??C (97.5 ??F) Pulse: [66-103] 74 Resp: [16-19] 16 BP: (139-170)/(53-86) 170/67 MAP (mmHg): 88 Oxygen Therapy SpO2: 92 % Pulse Oximetry Type: Continuous Patient Activity: At rest O2 Therapy: None (Room air) O2 Del Method: Nasal cannula O2 Flow Rate (L/min): 2 L/min SpO2 Alarm Limit High: 100 SpO2 Alarm Limit Low: 90 Labs: Recent Labs Lab Units 04/17/19 2247 WBC K/cumm 4.2 HEMOGLOBIN g/dL 8.9* HEMATOCRIT % 27.3* PLATELETS K/cumm 95* Recent Labs Lab Units 04/17/19 1851 04/14/19 1636 SODIUM mmol/L 139 < > 140 POTASSIUM PLASMA mmol/L 8.8* < > 4.3 CHLORIDE mmol/L 112* < > 112* CO2 mmol/L 19* < > 18* ANIONGAP mmol/L 8 < > 10 GLUCOSE mg/dL 274* < > 118 BUN SERUM mg/dL 5* < > 17 CREATININE mg/dL 0.50* < > 1.07 CALCIUM mg/dL 6.8* < > 6.8* ALBUMIN g/dL -- -- 2.7* ALK PHOS Units/L -- -- 66 ALT Units/L -- -- 13 AST Units/L -- -- 37 BILIRUBIN TOTAL mg/dL -- -- 1.1 < > = values in this interval not displayed. Recent Labs Lab Units 04/14/19 1712 APTT sec 29.7 PROTIME (PT) sec 15.0* INR 1.38* Scheduled Medications: acetaminophen 1,000 mg feeding tube Q8H MAUREEN calcium carbonate 1,000 mg of elemental calcium oral TID cholecalciferol 5,000 Units oral Daily DULoxetine DR 30 mg oral Daily [Held by Provider] enoxaparin 40 mg subcutaneous Daily-2100 gabapentin 200 mg feeding tube BID sodium chloride 0.9% 0.5-20 mL intra-catheter Q8H MAUREEN sodium chloride 0.9% 0.5-20 mL intra-catheter Q8H MAUREEN sodium chloride 0.9% 5-10 mL intra-catheter Q12H MAUREEN sodium phosphate 20 mmol intravenous Once Continuous Medications: bupivacaine preservative free in 0.9% sodium chloride 250 mL PRN Medications: benzocaine-menthol ??? hydrALAZINE ??? HYDROmorphone ??? ondansetron ??? oxyCODONE ??? prochlorperazine ??? sodium chloride 0.9 % ??? sodium chloride 0.9% ??? sodium chloride 0.9% ??? sodium chloride 0.9% Total IV opioid patient received__0.2__ mg in__12__hr. Total PO opioid patient received__10__mg in__12__hr. Anticoagulant: [] Warfarin [] Heparin [x] Lovenox [] Plavix []Other: Last dose of anticoagulant received:04/16/192036 Epidural Analgesic Infusion: [x] Bupivacaine 0.1% mL/hour: 8 Catheter (site): [x] Non-tender and dressing intact Side effects: none Physical Exam: General: [x] No acute distress HEENT: [x] Normocephalic, atraumatic Respiratory: [x] Unlabored breathing Cardiovascular: [] Regular rate and rhythm Abdomen: [x] Soft, non-tender Psychiatric: [x] Normal mood, affect, insight Skin: [x] No rashes or lesions Neuro: [x] Alert and oriented x 3 Motor: [x] Moves all extremities well Assessment /Plan Impression: [x] Pain is well controlled Plan: [] Continue present management Epidural/Local Anesthetic Infusion: [x] Remove epidural today (plan to first decrease rate to 1 mL/hr and remove in few hours) IV NETWORK MANAGER: [] Hydromorphone No basal rate/demand dose__0.1___mg__10___min lock out ___0.6___mg hourly max dose. [x] Continue oxycodone 5 mg Q4H PRN (first line) and hydromorphone 0.2 mg Q4H PRN (second line) Systemic Analgesics: [x] Please call if further pain management questions arise. [x] Plan of care done in collaboration with APS attending, Dr. Gonzalez. [x] Plan of care discussed with Primary Service. Shruti Ralph M.D. Resident, Pain Management, Department of Anesthesiology [facility] 04/18/2019 8:09 AM Cosigned by Aleksandra Gonzalez MD at 04/18/2019 10:17 AM CDT Associated attestation - Aleksandra Gonzalez MD - 04/18/2019 10:17 AM CDT I have seen and examined the patient on 04/18/19. I agree with the findings and plan of care as documented in the resident's/fellow's note. 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 Patient underwent thoracic epidural catheter placement prior to exploratory laparotomy and colostomy (04/13/19). Acute Pain Service following for acute post-operative pain. POD#: 4 Catheter Day#: 5 Surgery: EXPLORATORY LAPAROTOMY (N/A); COLOSTOMY (N/A) (04/13/19) Subjective: Patient reports acute post-operative pain related to her abdominal incisions that is improved compared to yesterday. Pain with same location and same characteristics. Pain worse with coughing and movement. Pain improves with rest. Pain is non-radiating. Pain is currently 4/10 at rest, worsens to 8/10 with coughing or with movement. Pain gradually improving since surgery. Patient reports that her APAP, duloxetine, gabapentin, hydromorphone NETWORK MANAGER, and epidural provide relief. Denies side effects from her medications. ?? In past 24 hours, advanced to CLD, NGT removed, masterson removed, voiding spontaneously, passing flatus and stool, ambulating. Current medication regimen: APAP 1000 mg PT Q8H MAUREEN, gabapentin 200 mg PT BID, duloxetine 30 mg QD,bupivicaine at 6 ml/hr, hydromorphone NETWORK MANAGER. In past 24 hours, received hydromorphone 1 mg. Anticoagulant: enoxaparin 40 mg SQ QHS. ?? VS stable overnight. ?? Laboratory studies notable for WBC 4.2, HH 6.9/21.0, plt 82, Na 143, K 3.5, CO2 21, BUN/Cr 7/0.59, BG 112, Ca 7.6, iCal 4.19. No new imaging. ?? Verbal Pain Score (0-10): Pain is currently 4/10 at rest, worsens to 8/10 with coughing and movement. Objective: Temp: [36.7 ??C (98.1 ??F)-37 ??C (98.6 ??F)] 36.8 ??C (98.2 ??F) Pulse: [76-96] 87 Resp: [16-26] 16 BP: (114-154)/(55-97) 144/86 MAP (mmHg): 79 Oxygen Therapy SpO2: 97 % Pulse Oximetry Type: Continuous Patient Activity: At rest O2 Therapy: None (Room air) O2 Del Method: Nasal cannula O2 Flow Rate (L/min): 2 L/min SpO2 Alarm Limit High: 100 SpO2 Alarm Limit Low: 90 Labs: Recent Labs Lab Units 04/16/19 2211 WBC K/cumm 4.2 HEMOGLOBIN g/dL 6.9* HEMATOCRIT % 21.0* PLATELETS K/cumm 82* Recent Labs Lab Units 04/17/19 0618 04/14/19 1636 SODIUM mmol/L 145 < > 140 POTASSIUM PLASMA mmol/L 8.1* < > 4.3 CHLORIDE mmol/L 124* < > 112* CO2 mmol/L 19* < > 18* ANIONGAP mmol/L 2 < > 10 GLUCOSE mg/dL 237* < > 118 BUN SERUM mg/dL 6* < > 17 CREATININE mg/dL 0.53* < > 1.07 CALCIUM mg/dL 6.7* < > 6.8* ALBUMIN g/dL -- -- 2.7* ALK PHOS Units/L -- -- 66 ALT Units/L -- -- 13 AST Units/L -- -- 37 BILIRUBIN TOTAL mg/dL -- -- 1.1 < > = values in this interval not displayed. Recent Labs Lab Units 04/14/19 1712 APTT sec 29.7 PROTIME (PT) sec 15.0* INR 1.38* Scheduled Medications: acetaminophen 1,000 mg feeding tube Q8H MAUREEN DULoxetine DR 30 mg oral Daily enoxaparin 40 mg subcutaneous Daily-2100 famotidine 20 mg intravenous Daily gabapentin 200 mg feeding tube BID magnesium sulfate 2 g intravenous Once potassium phosphate 30 mmol intravenous Once sodium chloride 0.9% 0.5-20 mL intra-catheter Q8H MAUREEN sodium chloride 0.9% 0.5-20 mL intra-catheter Q8H MAUREEN sodium chloride 0.9% 5-10 mL intra-catheter Q12H MAUREEN Continuous Medications: bupivacaine preservative free in 0.9% sodium chloride 250 mL dextrose 5% and sodium chloride 0.45% 50 mL/hr HYDROmorphone sodium chloride 0.9% 0-250 mL PRN Medications: benzocaine-menthol ??? naloxone ??? ondansetron ??? prochlorperazine ??? sodium chloride 0.9 % ??? sodium chloride 0.9% ??? sodium chloride 0.9% ??? sodium chloride 0.9% Total IV opioid patient received__1__ mg in__12__hr. Total PO opioid patient received__0__mg in__12__hr. Anticoagulant: [] Warfarin [] Heparin [x] Lovenox [] Plavix []Other: Last dose of anticoagulant received:04/16/192036 Epidural Analgesic Infusion: [x] Bupivacaine 0.1% mL/hour: 6 Catheter (site): [x] Non-tender and dressing intact Side effects: none Physical Exam: General: [x] No acute distress HEENT: [x] Normocephalic, atraumatic Respiratory: [x] Unlabored breathing Cardiovascular: [] Regular rate and rhythm Abdomen: [x] Soft, non-tender Psychiatric: [x] Normal mood, affect, insight Skin: [x] No rashes or lesions Neuro: [x] Alert and oriented x 3 Motor: [x] Moves all extremities well Assessment /Plan Impression: [x] Pain is well controlled Plan: [] Continue present management Epidural/Local Anesthetic Infusion: [x] Increase epidural to 8 mL/hr for today, plan for removal tomorrow, hold enoxaparin PM dose on 04/17/19 IV NETWORK MANAGER: [] Hydromorphone No basal rate/demand dose__0.1___mg__10___min lock out ___0.6___mg hourly max dose. [x] Discontinue hydromorphone NETWORK MANAGER, transition to oxycodone 5 mg Q4H PRN (first line) and hydromorphone 0.2 mg Q4H PRN (second line) Systemic Analgesics: [x] Please call if further pain management questions arise. [x] Plan of care done in collaboration with APS attending, DR. Gonzalez. [x] Plan of care discussed with Primary Service. Shruti Ralph M.D. Resident, Pain Management, Department of Anesthesiology [facility] 04/17/2019 8:35 AM Cosigned by Aleksandra Gonzalez MD at 04/18/2019 9:45 AM CDT Associated attestation - Aleksandra Gonzalez MD - 04/18/2019 9:45 AM CDT I have seen and examined the patient on 04/17/2019. I agree with the findings and plan of care as documented in the resident's/fellow's note. * Mj Chiu MD - 04/17/2019 7:56 AM CDT Endocrinology Inpatient Consult Progress Note 04/17/2019 [place] [id number] Julio César Briseno MD CONSULTING PROVIDER: Mj Chiu MD REASON FOR CONSULTATION:Hypocalcemia Interval History: Further detailed history of present illness can be found in original consult note. Since patient was last seen on 04/14 NAEO iCal initially normalized, decreased this AM to 4.19 Documented UOP remains low (500cc +1 unmeasured) Diet advancing Hypokalemia, hypophosphatemia, hypomagnesemia on AM labs; metabolic derangement on AM BMP, likely lab error: stat labs being repeated K and Mag being repleted; not receiving home Vit D Past medical history: Past Medical History: Diagnosis Date ??? Cancer (CMS/HCC) ??? Family history of malignant hyperthermia grandson - questionable ??? Hypercholesteremia ??? Hypertension ??? Motion sickness ??? Personal history of other diseases of the digestive system History of hemorrhoids - (Added by TW Conv) ??? PONV (postoperative nausea and vomiting) Past surgical history: Past Surgical History: Procedure Laterality Date ??? GALLBLADDER SURGERY Gallbladder Surgery - (Added by TW Conv) ? ? IR PICC LINE PLACEMENT > 5 YEARS N/A 12/23/2018 ? ? IR PICC LINE PLACEMENT > 5 YEARS N/A 02/17/2019 ? ? IA REMOVAL OF TONSILS,<12 Y/O Tonsillectomy - (Added by TW Conv) ??? IA TOTAL ABDOM HYSTERECTOMY Hysterectomy - (Added by TW Conv) Family history: Family History Problem Relation Age of Onset ??? Breast cancer Sister Adenocarcinoma of breast - (Added by TW Conv) ??? Suicidality Father Family history of suicide - (Added by TW Conv) ??? Other (old age) Mother Social history: Social History Tobacco Use ??? Smoking status: Never Smoker ??? Smokeless tobacco: Never Used Substance Use Topics ??? Alcohol use: Yes Alcohol/week: 0.6 oz Types: 1 Shots of liquor per week ??? Drug use: No Outpatient medications: Current Discharge Medication List CONTINUE these medications which have NOT CHANGED Details DULoxetine DR (CYMBALTA) 30 mg capsule daily. ergocalciferol (VITAMIN D) 50,000 unit capsule Vitamin D2 50,000 unit capsule MYRBETRIQ 50 mg tablet extended release 24 hr Take 50 mg by mouth daily Refills: 1 octreotide (SandoSTATIN) 100 mcg/mL (1 mL) syringe Inject 1 mL (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) under the skin 3 (three) times a day as needed (flushing, cramping, diarrhea) Qty: 21 Syringe, Refills: 5 olmesartan-hydrochlorothiazide (BENICAR HCT) 20-12.5 mg per tablet Take 1 tablet by mouth daily simvastatin (ZOCOR) 20 mg tablet ascorbic acid, vitamin C, 500 mg capsule Take 1 tablet by mouth. cholecalciferol (VITAMIN D-3) 5,000 unit tablet Take 15,000 Units by mouth daily. cholestyramine (QUESTRAN) 4 gram packet cholestyramine (with sugar) 4 gram powder for susp in a packet clotrimazole-betamethasone (LOTRISONE) cream clotrimazole-betamethasone 1 %-0.05 % topical cream APPLY EXTERNALLY TO ABDOMEN TWICE DAILY NEEDED coenzyme [id number] (CO Q-10, WITH VIT E,) 100-5 mg-unit capsule diphenoxylate-atropine (LOMOTIL) 2.5-0.025 mg per tablet Take 1 tablet by mouth 4 (four) times a day as needed for diarrhea Qty: 30 tablet, Refills: 3 Associated Diagnoses: Diarrhea, unspecified type fluticasone propionate (FLONASE) 50 mcg/actuation nasal spray fluticasone propionate 50 mcg/actuation nasal spray,suspension hydrocortisone (PROCTOSOL HC) 2.5 % rectal cream Proctosol HC 2.5 % topical cream perineal applicator APPLY RECTALLY THREE TIMES A DAY montelukast (SINGULAIR) 10 mg tablet montelukast 10 mg tablet Current inpatient medications: Current Facility-Administered Medications Medication Dose Route Frequency Provider Last Rate Last Dose ??? acetaminophen (TYLENOL) tablet 1,000 mg 1,000 mg feeding tube Q8H MAUREEN Laura Lopes MD 1,000 mg at 04/14/192028 ??? bupivacaine preservative free in 0.9% sodium chloride 250 mL 0.1 % (1,000 mcg/mL) epidural Continuous Pedroza Carmen Alvarez MD ??? calcium gluconate 12,000 mg in sodium chloride 0.9% 1,000 mL (12 mg/mL) infusion 8 mg/kg/hr intravenous Continuous Neto Moss MD 54.4 mL/hr at 04/15/1952 8 mg/kg/hr at 04/15/1952 ??? [Held by Provider] DULoxetine DR (CYMBALTA) extended release capsule 30 mg 30 mg oral Daily Laura Lopes MD ??? enoxaparin (LOVENOX) syringe 40 mg 40 mg subcutaneous Daily-2100 Laura Lopes MD 40 mg at 04/14/192030 ??? gabapentin (NEURONTIN) capsule 200 mg 200 mg feeding tube BID Laura Lopes MD 200 mg at12028 ??? HYDROmorphone in 0.9% sodium chloride (DILAUDID) 20 mg/100 mL (0.2 mg/mL) infusion (premix) intravenous Continuous Laura Lopes MD 20 mg at 04/13/19 2019 ??? lidocaine PF (XYLOCAINE) 10 mg/mL (1 %) preservative free injection 10-20 mg 1-2 mL subcutaneous Once Neto Moss MD ??? naloxone (NARCAN) 0.4 mg/mL injection 0.04-0.4 mg 0.04-0.4 mg intravenous Q10 Min PRN Laura Lopes MD ??? ondansetron (ZOFRAN) injection 4 mg 4 mg intravenous Q6H PRN Laura Lopes MD ??? prochlorperazine (COMPAZINE) injection 10 mg 10 mg intravenous Q6H PRN Laura Lopes MD ??? sodium chloride 0.9 % irrigation PRN Greyson Reeves MD 1,000 mL at 04/13/19 1551 ??? sodium chloride 0.9% flush 0.5-20 mL 0.5-20 mL intra-catheter Q8H [facility] Laura Lopes MD 10 mL at 04/14/19 0532 ??? sodium chloride 0.9% flush 0.5-20 mL 0.5-20 mL intra-catheter PRN Laura Lopes MD 10 mLat 04/14/19 2320 ??? sodium chloride 0.9% flush 0.5-20 mL 0.5-20 mL intra-catheter Q8H [facility] Laura Lopes MD 10 mL at 04/14/19 0531 ??? sodium chloride 0.9% flush 0.5-20 mL 0.5-20 mL intra-catheter PRN Laura Lopes MD ??? sodium chloride 0.9% flush 5-10 mL 5-10 mL intra-catheter Q12H MAUREEN Neto Moss MD 10 mL at 04/14/19 2319 ??? sodium chloride 0.9% flush 5-20 mL 5-20 mL intra-catheter PRN Neto Moss MD ??? sodium chloride 0.9% infusion 125 mL/hr intravenous Continuous Neto Moss MD 125 mL/hr at 04/15/19720 125 mL/hr at 04/15/19720 Facility-Administered Medications Ordered in Other Encounters Medication Dose Route Frequency Provider Last Rate Last Dose ??? L-arginine 1.25%/L-lysine 1.25% infusion 1,000 mL 1,000 mL intravenous Continuous Meagan Amaya MD Allergies: Allergies as of 04/11/2019 - Reviewed 04/09/2019 Allergen Reaction Noted ??? Ezetimibe-simvastatin Muscle pain and Unknown 01/11/2012 ??? Ramipril Cough 12/30/2017 Review of systems: Review of systems per HPI and otherwise all other systems are negative. Physical exam: Temp: [36.7 ??C (98.1 ??F)-37 ??C (98.6 ??F)] 37 ??C (98.6 ??F) Pulse: [76-103] 103 Resp: [16-18] 16 BP: (114-159)/(55-97) 159/59 GENERAL: well appearing, well developed. Laying supine in bed, breathing comfortably. HENT: normocephalic, atraumatic. Moist mucous membranes. No pharyngeal exudates or erythema. Negative Cvostek's sign EYES: PERRL. EOMI. Anicteric conjunctiva. No exophthalmos. No lid lag. No lagophthalmos. NECK: thyroid normal size, non-tender, no palpable nodules CARDIOVASCULAR: Normal S1, S2. Tachycardic rate; normal rhythm. 2/6 BRANDI at RUSB; No lower extremityedema PULMONARY: symmetric chest expansion bilaterally. Lungs clear to auscultation bilaterally. No wheezes, rhonchi or crackles. ABDOMEN: soft, pink stoma at LLQ with serosanguinous output in ostomy bag; dressings c/d/i MUSCULOSKELETAL: no clubbing, cyanosis or edema. No hammertoe deformities or loss of arch on feet GENITOURINARY: deferred. SKIN: no rashes, petechiae or ecchymoses. No onycholysis of hands. Hair normal texture. Warm and moist. NEURO: alert and oriented x3. CN II-XII grossly normal. Moving all extremities spontaneously. Sensation to gross touch intact. Reflexes normal and symmetric. PSYCH: appropriate affect. Laboratory results: Lab Results Component Value Date WBC 4.2 04/16/2019 HGB 6.9 (L) 04/16/2019 HCT 21.0 (L) 04/16/2019 MCV 94.2 04/16/2019 LABPLAT 82 (L) 04/16/2019 Lab Results Component Value Date GLUCOSE 103 04/17/2019 CALCIUM 7.7 (L) 04/17/2019 SODIUM 143 04/17/2019 POTASSIUM 3.5 04/17/2019 CO2 21 (L) 04/17/2019 CHLORIDE 114 (H) 04/17/2019 BUNSER 6 (L) 04/17/2019 CREATININE 0.58 (L) 04/17/2019 No results found for: HGBA1C Lab Results Component Value Date PTH 554 (H) 04/14/2019 CALCIUM 7.7 (L) 04/17/2019 CAION 4.19 (L) 04/17/2019 PHOS 1.3 (L) 04/17/2019 Lab Results Component Value Date ALT 13 04/14/2019 AST 37 04/14/2019 ALKPHOS 66 04/14/2019 BILITOT 1.1 04/14/2019 No results found for: TSH, FREET4, THYROIDAB No results found for: THYROGLOBULI, THGABINT No results found for: PROLACTIN, CORTISOL, ACTH, FSH, LH, ESTRADIOL, IGF1 No results found for: TESTOSTERONE, TESTOSTFREE No results found for: CHOL, HDL, LDL, TRIG No components found for: UAGLU, UABIL, UAKET, UASG, UARBC, UAPH, UAPRO, UAURO, UANIT, UALEUK Assessment and plan: Mrs Chung is a 68??yo F??with a PMH remarkable for HLD, HTN, and 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 Currently on peptide receptor radionuclide therapy, octreotide, now??admitted due to large bowel obstruction for whom endocrinology has been consulted for management of hypocalcemia. Hypocalcemia Assessment & Plan History of elevated serum Ca to 11.1, thought 2/2 metastatic bony disease. Received denosumab 03/30 120mg SQ. Ca on presentation to [facility] 8.2; following surgical procedure, Ca acutely dropped to 6.4 (7.2 corrected for albumin) with ANNE-MARIE. 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 Unclear cause of acute drop following surgery -> possibly exacerbated by decrease in GFR vs phosphorus supplementation. No blood products documented intraop. Asymptomatic but severe drop. PTH appropriately elevated. - Can continue off drip for now. Would recommend to continue to monitor at least q12H for the next day or two and if it appears stable we can check less frequently. - Recommend starting PO calcium carbonate 1g elemental calcium TID - Hypokalemia, hyophosphatemia, hypomagnesemia on AM labs: could be consistent with refeeding vs malabsorption; would recommend q12 monitoring with repletion as needed - Would recommend resuming home vitamin D supplementation - Denosumab induced hypocalcemia may require significant po supplementation at discharge; recommendagainst scheduled repeat dose ANNE-MARIE (acute kidney injury) (CMS/HCC) Assessment & Plan Now appears resolved with normalized creatinine; however UOP appears low despite aggressive volume resuscitation. - Recommend continued monitoring Thank you for involving us in the care of this patient. Endocrinology Consult Service will continueto follow. ??Please do not hesitate to contact us with any further questions. (Endocrine Non-Diabetes??Consult Fellow's Phone) ?? Mj Chiu MD Internal Medicine PGY-2 Cosigned by Phoenix Angelo MD at 04/17/2019 4:01 PM CDT Associated attestation - Phoenix Angelo Jr., MD - 04/17/2019 4:01 PM CDT I have seen and examined the patient on 04/17/19. I agree with the findings and plan of care as documented in the resident's/fellow's note. * Poncho Carter MD - 04/17/2019 5:29 AM CDT CRS Progress Note Subjective The patient is a 68 yo F with metastatic ileal neuroendocrine tumor, presenting with a large bowel obstruction, now on POD#4 s/p Ex Lap + End colostomy Patient was seen and examined this morning Patient had a successful clamp trial yesterday, it was removed. This morning endorses tolerating the sips of clears. Colostomy with stool in bag. Ambulating Using the IS NPO with sips Objective Vitals: 24hr Min/Max: Temp Min: 36.7 ??C (98.1 ??F) Max: 37 ??C (98.6 ??F) Pulse Min: 76 Max: 96 BP Min: 114/97 Max: 154/67 Resp Min: 16 Max: 26 SpO2 Min: 95 % Max: 97 % Most Recent : Vitals: 04/17/19 0435 BP: 143/59 Pulse: 78 Resp: 16 Temp: 36.8 ??C (98.2 ??F) SpO2: 97% I/O last 2 completed shifts: In: 1567.9 [I.V.:1247.9; NG/GT:320] Out: 375 [Urine:100; Drains:100; Stool:175] I/O this shift: In: 5812 [I.V.:5812] Out: 955 [Urine:400; Stool:555] Physical Exam: Physical Exam Constitutional: She is oriented to person, place, and time. She appears well- developed and well-nourished. HENT: Head: Normocephalic and atraumatic. Eyes: Pupils are equal, round, and reactive to light. Conjunctivae are normal. Cardiovascular: Normal rate and regular rhythm. Pulmonary/Chest: Effort normal. Abdominal: Incision c/d/i, abdomen soft, slightly distended, TTP around incision, no rebound, no rigidity Colostomy pink and healthy, stool in bag, appliance exchanged this AM. Musculoskeletal: Normal range of motion. Neurological: She is alert and oriented to person, place, and time. Skin: Skin is warm and dry. Lab/Radiology/Diagnostic Review: Laboratory review: Lab results in the last 24 hours: Recent Results (from the past 24 hour(s)) Basic metabolic panel Collection Time: 04/16/19 6:45 AM Result Value Ref Range Sodium 140 135 - 145 mmol/L Potassium, pl 3.5 3.3 - 4.9 mmol/L Chloride 113 (H) 97 - 110 mmol/L CO2 21 (L) 22 - 32 mmol/L Anion gap 6 2 - 15 mmol/L BUN 12 8 - 25 mg/dL Creatinine 0.68 0.60 - 1.10 mg/dL Glucose 81 70 - 199 mg/dL Calcium 8.2 (L) 8.5 - 10.3 mg/dL Calcium, ionized Collection Time: 04/16/19 6:45 AM Result Value Ref Range Calcium, Ionized 4.62 4.50 - 5.10 mg/dL Basic metabolic panel Collection Time: 04/16/19 12:08 PM Result Value Ref Range Sodium 143 135 - 145 mmol/L Potassium, pl 3.4 3.3 - 4.9 mmol/L Chloride 114 (H) 97 - 110 mmol/L CO2 20 (L) 22 - 32 mmol/L Anion gap 9 2 - 15 mmol/L BUN 10 8 - 25 mg/dL Creatinine 0.71 0.60 - 1.10 mg/dL Glucose 86 70 - 199 mg/dL Calcium 8.2 (L) 8.5 - 10.3 mg/dL Calcium, ionized Collection Time: 04/16/19 12:08 PM Result Value Ref Range Calcium, Ionized 4.81 4.50 - 5.10 mg/dL Basic metabolic panel Collection Time: 04/16/19 6:13 PM Result Value Ref Range Sodium 142 135 - 145 mmol/L Potassium, pl 3.2 (L) 3.3 - 4.9 mmol/L Chloride 117 (H) 97 - 110 mmol/L CO2 19 (L) 22 - 32 mmol/L Anion gap 6 2 - 15 mmol/L BUN 9 8 - 25 mg/dL Creatinine 0.60 0.60 - 1.10 mg/dL Glucose 70 70 - 199 mg/dL Calcium 7.3 (L) 8.5 - 10.3 mg/dL Calcium, ionized Collection Time: 04/16/19 6:13 PM Result Value Ref Range Calcium, Ionized 4.53 4.50 - 5.10 mg/dL CBC with auto differential Collection Time: 04/16/19 10:11 PM Result Value Ref Range WBC 4.2 3.8 - 9.9 K/cumm Hgb 6.9 (L) 11.9 - 15.5 g/dL Hct 21.0 (L) 35.6 - 45.5 % Plt 82 (L) 150 - 400 K/cumm MPV 11.2 9.1 - 12.3 fL RBC 2.23 (L) 3.90 - 5.20 M/cumm MCV 94.2 81.3 - 96.4 fL MCH 30.9 27.1 - 33.3 pg MCHC 32.9 32.3 - 35.7 g/dL RDW CV 13.9 11.1 - 14.9 % RDW SD 48.2 (H) 35.7 - 48.1 fL NRBC abs 0.00 0.00 - 0.01 K/cumm Basic metabolic panel Collection Time: 04/16/19 10:11 PM Result Value Ref Range Sodium 143 135 - 145 mmol/L Potassium, pl 3.0 (L) 3.3 - 4.9 mmol/L Chloride 115 (H) 97 - 110 mmol/L CO2 18 (L) 22 - 32 mmol/L Anion gap 10 2 - 15 mmol/L BUN 9 8 - 25 mg/dL Creatinine 0.61 0.60 - 1.10 mg/dL Glucose 73 70 - 199 mg/dL Calcium 7.1 (L) 8.5 - 10.3 mg/dL Differential, auto Collection Time: 04/16/19 10:11 PM Result Value Ref Range Neutrophil abs 3.4 1.7 - 6.5 K/cumm Imm gran abs 0.0 0.0 - 0.1 K/cumm Lymphocyte abs 0.2 (L) 0.8 - 3.3 K/cumm Monocyte abs 0.4 0.2 - 0.8 K/cumm Eosinophil abs 0.1 0.0 - 0.5 K/cumm Basophil abs 0.0 0.0 - 0.1 K/cumm Neutrophil pct 81.3 % Imm gran pct 1.2 % Lymphocyte pct 5.0 % Monocyte pct 10.3 % Eosinophil pct 1.7 % Basophil pct 0.5 % Assessment /Plan Problem List Items Addressed This Visit Digestive * (Principal) Large bowel obstruction (CMS/HCC) - Primary Relevant Orders Case Request Operating Room: EXPLORATORY LAPAROTOMY, COLOSTOMY, RESECTION SMALL BOWEL (Completed) Ambulatory referral to Home Health Other Neuroendocrine carcinoma (CMS/HCC) Relevant Orders Ambulatory referral to Home Health Other Visit Diagnoses Acute postoperative abdominal pain The patient is a 68 yo F with a PMH remarkable for HLD, HTN, and 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 Currently on peptide receptor radionuclide therapy, octreotide, now admitted due to large bowel obstruction. Now on POD#4 s/p Ex Lap + End colostomy. Doing well this morning, Calcium levels normalized, pain is well controlled, UOP adequate, tolerated sips. Abdomen soft, appropriately TTP, colostomy pink, had some stool in bag. Plan: Advance to [facility] Continue MIVF. Appreciate Endo Recs for Vitamin D supplementation Pain and nausea management Encourage ambulation and use of IS DVT/PE Prophylaxis F/u Labs - BMP q6h + iCal q6h, CBC in PM Will transfuse 1 unit of PRBCs now. Replete Lytes PRN PT/OT Strict I&Os Monitor vitals Seen and discussed with chief resident, to be discussed with attending Poncho Wiley MD PGY-1 Urology - covering CRS P: [phone] Cosigned by Geryson Reeves MD at 04/17/2019 10:05 AM CDT * Bettie Pat MD - 04/16/2019 11:24 AM CDT Consulting Team: general surgery REASON FOR CONSULTATION:Hypocalcemia Subjective HPI/Interval History: Calcium stable yesterday afternoon and calcium drip stopped. Ionized calcium has remained stable. Patient feels well today. Denies any nausea. No distal or perioral paresthesias. Objective Vitals: 24hr Min/Max: Temp Min: 36.5 ??C (97.7 ??F) Max: 37 ??C (98.6 ??F) Pulse Min: 80 Max: 106 BP Min: 116/75 Max: 154/67 Resp Min: 17 Max: 26 SpO2 Min: 90 % Max: 96 % Most Recent : Vitals: 04/16/19 0837 BP: 154/67 Pulse: 96 Resp: 26 Temp: 36.9 ??C (98.4 ??F) SpO2: 95% I/O last 2 completed shifts: In: 420 [NG/GT:420] Out: 525 [Urine:250; Drains:100; Stool:175] I/O this shift: In: 247.9 [I.V.:247.9] Out: 0 Physical Exam: General: Alert, no acute distress,laying in bed, HENT: mucus membranes are moist, no oral lesions, NG tube Eyes: Sclera anicteric, EOMI, no proptosis Lungs: normal effort, clear to ascultation anteriorly Heart: regular rate, normal rhythm, no murmur appreciated Abdomen: soft, non-tender, + ostomy Extremities: no lower extremity edema, warm, well perfused Neuro: grossly intact, alert and oriented x 3 Skin: No rash Lab/Radiology/Diagnostic Review: Lab Results Component Value Date PTH 554 (H) 04/14/2019 CALCIUM 8.2 (L) 04/16/2019 CAION 4.62 04/16/2019 PHOS 2.3 04/15/2019 Lab Results Component Value Date GLUCOSE 81 04/16/2019 CALCIUM 8.2 (L) 04/16/2019 SODIUM 140 04/16/2019 POTASSIUM 3.5 04/16/2019 CO2 21 (L) 04/16/2019 CHLORIDE 113 (H) 04/16/2019 BUNSER 12 04/16/2019 CREATININE 0.68 04/16/2019 Assessment/Plan Principal Problem: Large bowel obstruction (CMS/HCC) Active Problems: Neuroendocrine carcinoma (CMS/HCC) Hypocalcemia ANNE-MARIE (acute kidney injury) (CMS/HCC) Assessment/Plan ANNE-MARIE (acute kidney injury) (CMS/HCC) Assessment & Plan Now appears resolved. Hypocalcemia Assessment & Plan History of elevated serum Ca to 11.1, thought 2/2 metastatic bony disease. Received denosumab 03/30 120mg SQ. Ca on presentation to [facility] 8.2; following surgical procedure, Ca acutely [...] may require significant po supplementation at discharge; recommendagainst scheduled repeat dose Bettie Pat MD Endocrinology Fellow, PGY-5 Cosigned by Phoenix Angelo MD at 04/16/2019 1:18 PM CDT Associated attestation - Phoenix Angelo Jr., MD - 04/16/2019 1:18 PM CDT I have seen and examined the patient on 04/16/19. I agree with the findings and plan of care as documented in the resident's/fellow's note. * Tanesha Álvarez NP - 04/16/2019 10:56 AM CDT Acute Pain Service Analgesic Catheter Follow up Note. Subjective Patient is a 68 y.o. female with chief complaint of acute postoperative pain. POD#: 3 Catheter Day#: 4 Surgery: status post Xlap/colostomy/SBR. Subjective: Patient is resting in bed in NAD,states pain is well controlled, denies any symptoms of anesthetic toxicity, NGT clamped, +flatus. Objective: Temp: [97.7 ??F (36.5 ??C)-98.6 ??F (37 ??C)] 98.4 ??F (36.9 ??C) Pulse: [80-106] 96 Resp: [17-26] 26 BP: (116-154)/(47-75) 154/67 MAP (mmHg): 90 Oxygen Therapy SpO2: 95 % Pulse Oximetry Type: Continuous Patient Activity: At rest O2 Therapy: None (Room air) O2 Del Method: Nasal cannula O2 Flow Rate (L/min): 2 L/min SpO2 Alarm Limit High: 100 SpO2 Alarm Limit Low: 90 Labs: Recent Labs Lab Units 10/09/19 2126 WBC K/cumm 3.8 HEMOGLOBIN g/dL 8.0* HEMATOCRIT % 23.8* PLATELETS K/cumm 84* Recent Labs Lab Units 04/16/19 0645 04/14/19 1636 SODIUM mmol/L 140 < > 140 POTASSIUM PLASMA mmol/L 3.5 < > 4.3 CHLORIDE mmol/L 113* < > 112* CO2 mmol/L 21* < > 18* ANIONGAP mmol/L 6 < > 10 GLUCOSE mg/dL 81 < > 118 BUN SERUM mg/dL 12 < > 17 CREATININE mg/dL 0.68 < > 1.07 CALCIUM mg/dL 8.2* < > 6.8* ALBUMIN g/dL -- -- 2.7* ALK PHOS Units/L -- -- 66 ALT Units/L -- -- 13 AST Units/L -- -- 37 BILIRUBIN TOTAL mg/dL -- -- 1.1 < > = values in this interval not displayed. Recent Labs Lab Units 04/14/19 1712 APTT sec 29.7 PROTIME (PT) sec 15.0* INR 1.38* Verbal Pain Score (0-10): at rest 3/10, with cough 4/10, with movement 4/10. Scheduled Medications: acetaminophen 1,000 mg feeding tube Q8H MAUREEN cholecalciferol 15,200 Units feeding tube Daily [Held by Provider] DULoxetine DR 30 mg oral Daily enoxaparin 40 mg subcutaneous Daily-2100 famotidine 20 mg intravenous Daily gabapentin 200 mg feeding tube BID sodium chloride 0.9% 0.5-20 mL intra-catheter Q8H MAUREEN sodium chloride 0.9% 0.5-20 mL intra-catheter Q8H MAUREEN sodium chloride 0.9% 5-10 mL intra-catheter Q12H MAUREEN Continuous Medications: bupivacaine preservative free in 0.9% sodium chloride 250 mL HYDROmorphone sodium chloride 0.9% 125 mL/hr Last Rate: 125 mL/hr (04/16/19 0859) PRN Medications: naloxone ??? ondansetron ??? prochlorperazine ??? sodium chloride 0.9 % ??? sodium chloride 0.9% ??? sodium chloride 0.9% ??? sodium chloride 0.9% Total IV opioid patient received__4.5__ mg in__12__hr. Total PO opioid patient received__0__mg in__12__hr. Anticoagulant: [] Warfarin [] Heparin [x] Lovenox [] Plavix []Other: Last dose of anticoagulant received:04/15 2128 Epidural Analgesic Infusion: [x] Bupivacaine 0.1% mL/hour:6 Catheter (site): [x] Non-tender and dressing intact Side effects: none Physical Exam: General: [x] No acute distress HEENT: [x] Normocephalic, atraumatic Respiratory: [x] Unlabored breathing Cardiovascular: [] Regular rate and rhythm Abdomen: [] Soft, non-tender Psychiatric: [x] Normal mood, affect, insight Skin: [] No rashes or lesions Neuro: [x] Alert and oriented x 3 Motor: [x] Moves all extremities well Assessment /Plan Impression: [x] Pain is well controlled Plan: [x] Continue present management Epidural/Local Anesthetic Infusion: [x] No Change IV NETWORK MANAGER: [x] Hydromorphone No basal rate/demand dose__0.1___mg__10___min lock out ___0.6___mg hourly max dose. [x] No Change Systemic Analgesics: [x] Please call if further pain management questions arise. Keep hPCA until able to tolerate po [x] Plan of care done in collaboration with APS attending, DR. Gonzalez. [] Plan of care discussed with Primary Service. CIARA Tavares-EMILY 04/16/2019 10:57 AM * Poncho Carter MD - 04/16/2019 9:26 AM CDT CRS Progress Note Subjective The patient is a 68 yo F with metastatic ileal neuroendocrine tumor, presenting with a large bowel obstruction, now on POD#3 s/p Ex Lap + End colostomy Patient was seen and examined this morning Feels better this AM NGT in place to LIS Colostomy with stool in bag. Ambulating Using the IS NPO Objective Vitals: 24hr Min/Max: Temp Min: 36.5 ??C (97.7 ??F) Max: 37 ??C (98.6 ??F) Pulse Min: 80 Max: 108 BP Min: 116/75 Max: 154/67 Resp Min: 17 Max: 26 SpO2 Min: 88 % Max: 97 % Most Recent : Vitals: 04/16/19 0837 BP: 154/67 Pulse: 96 Resp: 26 Temp: 36.9 ??C (98.4 ??F) SpO2: 95% I/O last 2 completed shifts: In: 420 [NG/GT:420] Out: 525 [Urine:250; Drains:100; Stool:175] I/O this shift: In: 247.9 [I.V.:247.9] Out: - Physical Exam: Physical Exam Constitutional: She is oriented to person, place, and time. She appears well- developed and well-nourished. HENT: Head: Normocephalic and atraumatic. NGT in place to LIS Eyes: Pupils are equal, round, and reactive to light. Conjunctivae are normal. Cardiovascular: Normal rate and regular rhythm. Pulmonary/Chest: Effort normal. Abdominal: Incision c/d/i, abdomen soft, slightly distended, TTP around incision, no rebound, no rigidity Colostomy pink and healthy, stool in bag, appliance exchanged this AM. Genitourinary: Genitourinary Comments: Masterson in place, urine clear yellow. Musculoskeletal: Normal range of motion. Neurological: She is alert and oriented to person, place, and time. Skin: Skin is warm and dry. Lab/Radiology/Diagnostic Review: Laboratory review: Lab results in the last 24 hours: Recent Results (from the past 24 hour(s)) Calcium, ionized Collection Time: 04/15/19 1:45 PM Result Value Ref Range Calcium, Ionized 5.32 (H) 4.50 - 5.10 mg/dL Calcium, ionized Collection Time: 04/15/19 8:14 PM Result Value Ref Range Calcium, Ionized 4.71 4.50 - 5.10 mg/dL Calcium, ionized Collection Time: 04/15/19 9:26 PM Result Value Ref Range Calcium, Ionized 4.79 4.50 - 5.10 mg/dL CBC without differential Collection Time: 04/15/19 9:26 PM Result Value Ref Range WBC 3.8 3.8 - 9.9 K/cumm Hgb 8.0 (L) 11.9 - 15.5 g/dL Hct 23.8 (L) 35.6 - 45.5 % Plt 84 (L) 150 - 400 K/cumm MPV 11.0 9.1 - 12.3 fL RBC 2.53 (L) 3.90 - 5.20 M/cumm MCV 94.1 81.3 - 96.4 fL MCH 31.6 27.1 - 33.3 pg MCHC 33.6 32.3 - 35.7 g/dL RDW CV 14.1 11.1 - 14.9 % RDW SD 48.1 35.7 - 48.1 fL NRBC abs 0.00 0.00 - 0.01 K/cumm Magnesium Collection Time: 04/15/19 9:26 PM Result Value Ref Range Magnesium 1.7 1.4 - 2.5 mg/dL Phosphorus Collection Time: 04/15/19 9:26 PM Result Value Ref Range Phosphorus, pl 2.3 2.3 - 4.5 mg/dL Basic metabolic panel Collection Time: 04/15/19 9:26 PM Result Value Ref Range Sodium 141 135 - 145 mmol/L Potassium, pl 3.8 3.3 - 4.9 mmol/L Chloride 114 (H) 97 - 110 mmol/L CO2 22 22 - 32 mmol/L Anion gap 5 2 - 15 mmol/L BUN 14 8 - 25 mg/dL Creatinine 0.74 0.60 - 1.10 mg/dL Glucose 90 70 - 199 mg/dL Calcium 8.5 8.5 - 10.3 mg/dL Basic metabolic panel Collection Time: 04/16/19 6:45 AM Result Value Ref Range Sodium 140 135 - 145 mmol/L Potassium, pl 3.5 3.3 - 4.9 mmol/L Chloride 113 (H) 97 - 110 mmol/L CO2 21 (L) 22 - 32 mmol/L Anion gap 6 2 - 15 mmol/L BUN 12 8 - 25 mg/dL Creatinine 0.68 0.60 - 1.10 mg/dL Glucose 81 70 - 199 mg/dL Calcium 8.2 (L) 8.5 - 10.3 mg/dL Calcium, ionized Collection Time: 04/16/19 6:45 AM Result Value Ref Range Calcium, Ionized 4.62 4.50 - 5.10 mg/dL Assessment /Plan Problem List Items Addressed This Visit Digestive * (Principal) Large bowel obstruction (CMS/HCC) - Primary Relevant Orders Case Request Operating Room: EXPLORATORY LAPAROTOMY, COLOSTOMY, RESECTION SMALL BOWEL (Completed) Other Neuroendocrine carcinoma (CMS/HCC) Other Visit Diagnoses Acute postoperative abdominal pain The patient is a 68 yo F with a PMH remarkable for HLD, HTN, and 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 Currently on peptide receptor radionuclide therapy, octreotide, now admitted due to large bowel obstruction. Now on POD#3 s/p Ex Lap + End colostomy. Doing well this morning, Calcium levels normalized, pain is well controlled, UOP adequate, NGT output low. Abdomen soft, appropriately TTP, colostomy pink, had some stool in bag. Plan: NPO Continue MIVF. Appreciate Endo Recs for Calcium repletion, off drip now. Continue NGT to LIS - will re-assess at noon and do a clamp trial if low. Pain and nausea management Encourage ambulation and use of IS DVT/PE Prophylaxis F/u Labs - BMP q6h + iCal q6h, CBC in PM Replete Lytes PRN PT/OT Masterson removed at 6:15am - void check at 12:12 Strict I&Os Monitor vitals Seen and discussed with chief resident, discussed with attending Poncho Wiley MD PGY-1 Urology - covering CRS P: [phone] Cosigned by Greyson Reeves MD at 04/16/2019 10:32 AM CDT * Ashley Martin DPT - 04/15/2019 2:07 PM CDT Physical Therapy As supervising physical therapist, I agree with and cosign all documentation provided in the care plan, handoff, and education on this date by physical therapy student, Shanika Dyer. Ashley Martin DPT 2:07 PM 04/15/19 * Chalino Claire - 04/15/2019 1:15 PM CDT Spiritual Care Note Zafar Dakotah 04/15/2019 04/15/19 1300 Time Spent Start Time 1240 Stop Time 1305 Time Calculation (min) 25 min Clinical Encounter Type Visited With Patient and family together Response Type Continuing visit Routine Visit Follow-up Continue Visiting Yes Reason for visit Support Outcomes and Interventions Outcomes Minnie affirmation;Demonstrating care and respect;Sense of peace Interventions Active listening;Explore minnie and values;Reminiscing * Poncho Carter MD - 04/15/2019 9:40 AM CDT CRS Progress Note Subjective The patient is a 68 yo F with metastatic ileal neuroendocrine tumor, presenting with a large bowel obstruction, now on POD#2 s/p Ex Lap + End colostomy Patient was seen and examined this morning Heart rate, blood pressure, urine output, and calcium levels improving. NGT in place to LIS, had 1300 cc output in 24h Colostomy with stool in bag. Ambulating Using the IS NPO Objective Vitals: 24hr Min/Max: Temp Min: 36.3 ??C (97.3 ??F) Max: 37.6 ??C (99.7 ??F) Pulse Min: 94 Max: 116 BP Min: 92/55 Max: 150/55 Resp Min: 16 Max: 19 SpO2 Min: 90 % Max: 100 % Most Recent : Vitals: 04/15/19 0457 BP: 121/46 Pulse: 104 Resp: 16 Temp: 37.1 ??C (98.8 ??F) SpO2: 90% I/O last 2 completed shifts: In: 5079 [P.O.:50; I.V.:4029; IV Piggyback:1000] Out: 2049 [Urine:650; Drains:1300; Stool:100] No intake/output data recorded. Physical Exam: Physical Exam Constitutional: She is oriented to person, place, and time. She appears well- developed and well-nourished. HENT: Head: Normocephalic and atraumatic. NGT in place to LIS Eyes: Pupils are equal, round, and reactive to light. Conjunctivae are normal. Cardiovascular: Normal rate and regular rhythm. Pulmonary/Chest: Effort normal. Abdominal: Incision c/d/i, abdomen soft, slightly distended, TTP around incision, no rebound, no rigidity Colostomy pink and healthy, stool in bag, appliance exchanged this AM. Genitourinary: Genitourinary Comments: Masterson in place, urine clear yelliow. Musculoskeletal: Normal range of motion. Neurological: She is alert and oriented to person, place, and time. Skin: Skin is warm and dry. Lab/Radiology/Diagnostic Review: Laboratory review: Lab results in the last 24 hours: Recent Results (from the past 24 hour(s)) Prepare RBC: 2 Units Collection Time: 04/14/19 12:14 PM Result Value Ref Range Product code [id number] Unit Number [id number] Product Blood Type APOS Dispense Status RETURNED Product code [id number] Unit Number [id number] Product Blood Type APOS Dispense Status RETURNED Creatinine, urine, random Collection Time: 04/14/19 1:52 PM Result Value Ref Range Creatinine Ur 294.6 mg/dL Sodium, urine, random Collection Time: 04/14/19 1:52 PM Result Value Ref Range Sodium, ur 34 mmol/L Comprehensive metabolic panel Collection Time: 04/14/19 4:36 PM Result Value Ref Range Sodium 140 135 - 145 mmol/L Potassium, pl 4.3 3.3 - 4.9 mmol/L Chloride 112 (H) 97 - 110 mmol/L CO2 18 (L) 22 - 32 mmol/L Anion gap 10 2 - 15 mmol/L BUN 17 8 - 25 mg/dL Creatinine 1.07 0.60 - 1.10 mg/dL Glucose 118 70 - 199 mg/dL Calcium 6.8 (L) 8.5 - 10.3 mg/dL Bilirubin, total 1.1 0.1 - 1.2 mg/dL Protein, pl 5.5 (L) 6.5 - 8.5 g/dL Albumin 2.7 (L) 3.5 - 5.0 g/dL Alk phos 66 40 - 130 Units/L ALT 13 7 - 45 Units/L AST 37 10 - 45 Units/L Magnesium Collection Time: 04/14/19 4:36 PM Result Value Ref Range Magnesium 2.3 1.4 - 2.5 mg/dL CBC without differential Collection Time: 04/14/19 4:36 PM Result Value Ref Range WBC 5.7 3.8 - 9.9 K/cumm Hgb 10.6 (L) 11.9 - 15.5 g/dL Hct 32.4 (L) 35.6 - 45.5 % Plt 106 (L) 150 - 400 K/cumm MPV 10.6 9.1 - 12.3 fL RBC 3.41 (L) 3.90 - 5.20 M/cumm MCV 95.0 81.3 - 96.4 fL MCH 31.1 27.1 - 33.3 pg MCHC 32.7 32.3 - 35.7 g/dL RDW CV 14.5 11.1 - 14.9 % RDW SD 50.3 (H) 35.7 - 48.1 fL NRBC abs 0.00 0.00 - 0.01 K/cumm Phosphorus Collection Time: 04/14/19 4:36 PM Result Value Ref Range Phosphorus, pl 2.7 2.3 - 4.5 mg/dL Calcium, ionized Collection Time: 04/14/19 4:36 PM Result Value Ref Range Calcium, Ionized 3.49 (L) 4.50 - 5.10 mg/dL Protime-INR Collection Time: 04/14/19 5:12 PM Result Value Ref Range PT 15.0 (H) 8.6 - 13.0 sec INR 1.38 (H) 0.80 - 1.20 aPTT Collection Time: 04/14/19 5:12 PM Result Value Ref Range aPTT 29.7 25.0 - 37.0 sec CBC without differential Collection Time: 04/14/19 11:18 PM Result Value Ref Range WBC 4.8 3.8 - 9.9 K/cumm Hgb 8.4 (L) 11.9 - 15.5 g/dL Hct 25.3 (L) 35.6 - 45.5 % Plt 93 (L) 150 - 400 K/cumm MPV 10.7 9.1 - 12.3 fL RBC 2.76 (L) 3.90 - 5.20 M/cumm MCV 91.7 81.3 - 96.4 fL MCH 30.4 27.1 - 33.3 pg MCHC 33.2 32.3 - 35.7 g/dL RDW CV 14.5 11.1 - 14.9 % RDW SD 48.0 35.7 - 48.1 fL NRBC abs 0.00 0.00 - 0.01 K/cumm Magnesium Collection Time: 04/14/19 11:18 PM Result Value Ref Range Magnesium 2.2 1.4 - 2.5 mg/dL Phosphorus Collection Time: 04/14/19 11:18 PM Result Value Ref Range Phosphorus, pl 2.2 (L) 2.3 - 4.5 mg/dL PTH Collection Time: 04/14/19 11:18 PM Result Value Ref Range PTH 554 (H) 15 - 65 pg/mL Vitamin D 25 hydroxy Collection Time: 04/14/19 11:18 PM Result Value Ref Range Vitamin D, 25-hydroxy 22 (L) 30 - 80 ng/mL Calcium, ionized Collection Time: 04/14/19 11:18 PM Result Value Ref Range Calcium, Ionized 3.96 (L) 4.50 - 5.10 mg/dL Basic metabolic panel Collection Time: 04/14/19 11:18 PM Result Value Ref Range Sodium 139 135 - 145 mmol/L Potassium, pl 3.8 3.3 - 4.9 mmol/L Chloride 110 97 - 110 mmol/L CO2 22 22 - 32 mmol/L Anion gap 7 2 - 15 mmol/L BUN 18 8 - 25 mg/dL Creatinine 1.02 0.60 - 1.10 mg/dL Glucose 121 70 - 199 mg/dL Calcium 7.0 (L) 8.5 - 10.3 mg/dL Calcium, ionized Collection Time: 04/15/19 5:11 AM Result Value Ref Range Calcium, Ionized 4.59 4.50 - 5.10 mg/dL CBC without differential Collection Time: 04/15/19 5:16 AM Result Value Ref Range WBC 4.2 3.8 - 9.9 K/cumm Hgb 8.5 (L) 11.9 - 15.5 g/dL Hct 26.1 (L) 35.6 - 45.5 % Plt 88 (L) 150 - 400 K/cumm MPV 10.7 9.1 - 12.3 fL RBC 2.74 (L) 3.90 - 5.20 M/cumm MCV 95.3 81.3 - 96.4 fL MCH 31.0 27.1 - 33.3 pg MCHC 32.6 32.3 - 35.7 g/dL RDW CV 14.6 11.1 - 14.9 % RDW SD 49.8 (H) 35.7 - 48.1 fL NRBC abs 0.00 0.00 - 0.01 K/cumm Basic metabolic panel Collection Time: 04/15/19 5:20 AM Result Value Ref Range Sodium 140 135 - 145 mmol/L Potassium, pl 3.8 3.3 - 4.9 mmol/L Chloride 110 97 - 110 mmol/L CO2 23 22 - 32 mmol/L Anion gap 7 2 - 15 mmol/L BUN 17 8 - 25 mg/dL Creatinine 0.89 0.60 - 1.10 mg/dL Glucose 112 70 - 199 mg/dL Calcium 8.0 (L) 8.5 - 10.3 mg/dL Assessment /Plan Problem List Items Addressed This Visit Digestive * (Principal) Large bowel obstruction (CMS/HCC) - Primary Relevant Orders Case Request Operating Room: EXPLORATORY LAPAROTOMY, COLOSTOMY, RESECTION SMALL BOWEL (Completed) Other Neuroendocrine carcinoma (CMS/HCC) Other Visit Diagnoses Acute postoperative abdominal pain The patient is a 68 yo F with a PMH remarkable for HLD, HTN, and 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 Currently on peptide receptor radionuclide therapy, octreotide, now admitted due to large bowel obstruction. Now on POD#2 s/p Ex Lap + End colostomy. Patient was found to be hypocalcemic yesterday, asymptomatic, endocrinology was consulted and patient started on Calcium drip. Now calcium is WNL. Tachycardia, BP and urine output improving compared to yesterday. Plan: NPO Continue MIVF. Continue calcium repletion, appreciate Endo Recs. Continue NGT to LIS Pain and nausea management Encourage ambulation and use of IS DVT/PE Prophylaxis F/u Labs - BMP q6h + iCal q6h, CBC this afternoon. Replete Lytes PRN Strict I&Os Monitor vitals Seen and discussed with chief resident, discussed with attending Poncho Wiley MD PGY-1 Urology - covering CRS P: [id number] Cosigned by Greyson Reeves MD at 04/15/2019 12:41 PM CDT * Shruti Ralph MD - 04/15/2019 9:15 AM CDT Images from the original note were not included. Acute Pain Service Analgesic Catheter Follow up Note?? 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 Patient underwent thoracic epidural catheter placement prior to exploratory laparotomy and colostomy (04/13/19). Acute Pain Service following for acute post-operative pain. POD#: 2 Catheter Day#: 3 Surgery: EXPLORATORY LAPAROTOMY (N/A); COLOSTOMY (N/A) (04/13/19) Subjective: Patient reports acute post-operative pain related to her abdominal incisions that is improved compared to yesterday. Pain worse with movement and muscle tension. Pain improves with rest. Pain is non-radiating. Pain is currently 3/10 at rest, worsens to 8/10 with coughing, worsens to 8/10 with movement. Pain has been constant. Patient reports that her hydromorphone NETWORK MANAGER provides partial relief. Patient reports that her current epidural is not as effective as an epidural that she previously had (however, her epidural rate was decreased to 3 mL/hr due to hypotension). Denies side effects from hermedications. NPO. Receiving medications PT and IV. Current medication regimen: APAP 1000 mg PT Q8H MAUREEN, gabapentin 200 mg PT BID, bupivicaine at 3 ml/hr, hydromorphone NETWORK MANAGER. VS notable for post-operative tachycardia and hypotension improving. NG tube with 1300 mL in past 24 hours. UOP 650 in past 24 hours. Stool output from colostomy. Net IO +3029 mL in past 24 hours. Laboratory studies notable for stable HH 8.5/26.1, decrease plt 93>88, improving Cr 1.02>0.89, improving Ca 7.0>8.0 and iCal 3.96>4.59. Verbal Pain Score (0-10): Pain is currently 6/10 at rest, worsens to 8/10 with coughing, worsens to 10/10 with movement. Current Facility-Administered Medications Medication Dose Route Frequency Last Rate Last Dose ??? acetaminophen (TYLENOL) tablet 1,000 mg 1,000 mg feeding tube Q8H MAUREEN 1,000 mg at 04/14/192028 ??? bupivacaine preservative free in 0.9% sodium chloride 250 mL 0.1 % (1,000 mcg/mL) epidural Continuous ??? calcium gluconate 12,000 mg in sodium chloride 0.9% 1,000 mL (12 mg/mL) infusion 8 mg/kg/hr intravenous Continuous 54.4 mL/hr at 04/15/1952 8 mg/kg/hr at 04/15/1952 ??? [Held by Provider] DULoxetine DR (CYMBALTA) extended release capsule 30 mg 30 mg oral Daily ??? enoxaparin (LOVENOX) syringe 40 mg 40 mg subcutaneous Daily-2100 40 mg at 04/14/192030 ??? gabapentin (NEURONTIN) capsule 200 mg 200 mg feeding tube BID 200 mg at 04/14/192028 ??? HYDROmorphone in 0.9% sodium chloride (DILAUDID) 20 mg/100 mL (0.2 mg/mL) infusion (premix) intravenous Continuous 20 mg at 04/13/19 2019 ??? lidocaine PF (XYLOCAINE) 10 mg/mL (1 %) preservative free injection 10-20 mg 1-2 mL subcutaneous Once ??? naloxone (NARCAN) 0.4 mg/mL injection 0.04-0.4 mg 0.04-0.4 mg intravenous Q10 Min PRN ??? ondansetron (ZOFRAN) injection 4 mg 4 mg intravenous Q6H PRN ??? prochlorperazine (COMPAZINE) injection 10 mg 10 mg intravenous Q6H PRN ??? sodium chloride 0.9 % irrigation PRN 1,000 mL at 04/13/19 1551 ??? sodium chloride 0.9% flush 0.5-20 mL 0.5-20 mL intra-catheter Q8H MAUREEN 10 mL at 04/14/19 0532 ??? sodium chloride 0.9% flush 0.5-20 mL 0.5-20 mL intra-catheter PRN 10 mL at 04/14/19 2320 ??? sodium chloride 0.9% flush 0.5-20 mL 0.5-20 mL intra-catheter Q8H MAUREEN 10 mL at 04/14/19 0531 ??? sodium chloride 0.9% flush 0.5-20 mL 0.5-20 mL intra-catheter PRN ??? sodium chloride 0.9% flush 5-10 mL 5-10 mL intra-catheter Q12H MAUREEN 10 mL at 04/14/19 2319 ??? sodium chloride 0.9% flush 5-20 mL 5-20 mL intra-catheter PRN ??? sodium chloride 0.9% infusion 125 mL/hr intravenous Continuous 125 mL/hr at 04/15/19 0721 125 mL/hr at 04/15/19 0721 Facility-Administered Medications Ordered in Other Encounters Medication Dose Route Frequency Last Rate Last Dose ??? L-arginine 1.25%/L-lysine 1.25% infusion 1,000 mL 1,000 mL intravenous Continuous Objective: Vitals: 04/15/19 0457 BP: 121/46 Pulse: 104 Resp: 16 Temp: 37.1 ??C (98.8 ??F) SpO2: 90% Physical Exam: ?? General: [x] No acute distress HEENT: [x] Normocephalic, atraumatic Respiratory: [x] Unlabored breathing Cardiovascular: [x] Regular rate and rhythm Abdomen: [x] dressings in place, soft, tender to palpation Psychiatric: [x] Normal mood, affect, insight Skin: [x] No rashes or lesions Neuro: [x] Alert and oriented x 3 Motor: [x] Moves all extremities well ?? Labs: Chem/LFT Lab History Some values may be hidden. Unless noted otherwise, only the newest values recorded on each date aredisplayed. Labs-Chem/LFT Latest Ref Range 03/30/19 04/12/19 04/14/19 04/15/19 Sodium 135 - 145 mmol/L 141 139 139 140 Creatinine 0.60 - 1.10 mg/dL 0.93 0.83 1.02 0.89 Bilirubin, total 0.1 - 1.2 mg/dL 1.0 1.1 AST 10 - 45 Units/L 30 37 ALT 7 - 45 Units/L 18 13 CrCl- Actual Body Weight (Cockcroft-Gault) 71 81.3 66.1 75.8 Some values recorded on this date have been omitted. Some abnormal values recorded on this date have been omitted. CT CAP W Contrast (10/06/18) IMPRESSION: 1. Interval development of the lesion in the right hemiliver suspicious for metastasis. MR of the liver recommended for further characterization. The metastatic implants along the superior surface ofthe liver are stable. 2. Slight interval decrease in size of multiple omental deposits. Addendum by Dr. Verma: Compared t0o CT of 04/21/2018 the metastasis in segment 7 has grown from 2.4 cm to 3.3 cm. An additional segment 6 lesion has remained stable at 1 cm. There is a possible new one in segment 5 that measures about 1.2 cm. Liver MR recommended for better characterization. MRI Abdomen Liver W WO Contrast (10/21/18) IMPRESSION: 1. Multiple hepatic lesions of concern the prior examination are consistent with metastases. In addition to these, there are numerous additional left and right hemiliver metastases that were not visualized on the prior examination due to differences in modality. 2. Omental deposits are consistent with metastases. PET Skull to Thigh (11/19/18) IMPRESSION: Postsurgical changes of exploratory laparotomy and omentectomy with diffuse metastatic disease in the chest, abdomen, and pelvis, including a lesion in the proximal left humerus. CT CAP W Contrast (03/23/19) IMPRESSION: 1. No change when compared to the prior study. Stable metastatic disease including stable pulmonarynodules, liver lesions, capsular hepatic lesions, omental lesion, vaginal fornix lesion, and stableretroperitoneal lymphadenopathy. 2. Stable densities in the region of the urethra which may represent stones within urethral diverticulum versus prior surgery. 3. Interval colitis which may be medication related involving the descending colon sigmoid colon and rectum. Total IV opioid patient received __0.8__ mg in__24__hr. Total PO opioid patient received__0__mg in__24__hr. Anticoagulant: [] Warfarin [] Heparin [x] Lovenox [] Plavix []Other: Last dose of anticoagulant received: enoxaparin 04/13/19 @ 2030 Epidural Analgesic Infusion: [x] Bupivacaine 0.1% mL/hour: Running at 3 mL/hr Catheter (site): [x] minimal tenderness and dressing intact [] Catheter dislodged Side effects: [] Nausea [] Pruritis [] Sedation [] Weakness in lower extremity Impression: ?? [x] Pain is well controlled [] Pain is moderately controlled [] Pain is poorly controlled Plan: [x] Continue present management Epidural/Local Anesthetic Infusion: ?? [] Bupivacaine 0.15% clinician bolus: [] Bupivacaine 0.1% clinician bolus: [] Ropivacaine 0.2% clinician bolus: ?? [] No Change [x] Increase infusion to _6_ ml/hr [] Decrease infusion to___ml/hr [] Analgesic Catheter out, tip intact ?? IV NETWORK MANAGER: ?? [x] Hydromorphone [] Morphine [] Fentanyl No basal rate/demand dose__0.1 mg 10___min lock out __0.6____mg hourly max dose. ?? [] Discontinue NETWORK MANAGER [] IV NETWORK MANAGER demand amount to []increase____mg []decrease____mg with____ minute lockout interval for mg max hourly dose. ?? Systemic Analgesics: [x] Continue multi-modal analgesia with APAP 1000 mg Q8H MAUREEN and gabapentin to 200 mg BID [x] We will continue to follow. [] Sign off at this time/Please call if further pain management questions arise. ?? [] On Q-ball home teaching completed. Verbal and written instructions provided to patient. Signs ofanesthetic toxicity discussed with patient. Patient verbalized understanding. ?? [x] Plan of care done in collaboration with APS attending, [x] Plan of care discussed with Primary Service. Shruti Ralph M.D. Resident, Pain Management, Department of Anesthesiology [facility] 04/15/2019 9:55 AM Cosigned by Aleksandra Gonzalez MD at 04/16/2019 11:07 AM CDT Associated attestation - Aleksandra Gonzalez MD - 04/16/2019 11:07 AM CDT I have seen and examined the patient on 04/15/2019. I agree with the findings and plan of care as documented in the resident's/fellow's note. * Mj Chiu MD - 04/15/2019 8:14 AM CDT Endocrinology Inpatient Consult Progress Note 04/15/2019 [place] [id number] Julio César Briseno MD CONSULTING PROVIDER: Mj Chiu MD REASON FOR CONSULTATION:Hypocalcemia Interval History: Further detailed history of present illness can be found in original consult note. Since patient was last seen on 04/14 NAEO iCal remained low until repletion escalated: 3.36 -> 3.66 -> 3.49 -> 3.96 -> 4.59 Os-skyler 7500mg given per tube; calcium gtt increased to 8 mg/kg PTH elevated to 554; Vit D @ 22 Cr improved to 0.89 though UOP remained low: 650 cc documented out; though 1.3L of NG output documented Overnight had transient oral numbness and LUE numbness, possibly from hypocalcemia, now resolved Past medical history: Past Medical History: Diagnosis Date ??? Cancer (CMS/HCC) ??? Family history of malignant hyperthermia grandson - questionable ??? Hypercholesteremia ??? Hypertension ??? Motion sickness ??? Personal history of other diseases of the digestive system History of hemorrhoids - (Added by TW Conv) ??? PONV (postoperative nausea and vomiting) Past surgical history: Past Surgical History: Procedure Laterality Date ??? GALLBLADDER SURGERY Gallbladder Surgery - (Added by TW Conv) ? ? IR PICC LINE PLACEMENT > 5 YEARS N/A 12/23/2018 ? ? IR PICC LINE PLACEMENT > 5 YEARS N/A 02/17/2019 ? ? IA REMOVAL OF TONSILS,<12 Y/O Tonsillectomy - (Added by TW Conv) ??? IA TOTAL ABDOM HYSTERECTOMY Hysterectomy - (Added by TW Conv) Family history: Family History Problem Relation Age of Onset ??? Breast cancer Sister Adenocarcinoma of breast - (Added by TW Conv) ??? Suicidality Father Family history of suicide - (Added by TW Conv) ??? Other (old age) Mother Social history: Social History Tobacco Use ??? Smoking status: Never Smoker ??? Smokeless tobacco: Never Used Substance Use Topics ??? Alcohol use: Yes Alcohol/week: 0.6 oz Types: 1 Shots of liquor per week ??? Drug use: No Outpatient medications: Current Discharge Medication List CONTINUE these medications which have NOT CHANGED Details DULoxetine DR (CYMBALTA) 30 mg capsule daily. ergocalciferol (VITAMIN D) 50,000 unit capsule Vitamin D2 50,000 unit capsule MYRBETRIQ 50 mg tablet extended release 24 hr Take 50 mg by mouth daily Refills: 1 octreotide (SandoSTATIN) 100 mcg/mL (1 mL) syringe Inject 1 mL (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) under the skin 3 (three) times a day as needed (flushing, cramping, diarrhea) Qty: 21 Syringe, Refills: 5 olmesartan-hydrochlorothiazide (BENICAR HCT) 20-12.5 mg per tablet Take 1 tablet by mouth daily simvastatin (ZOCOR) 20 mg tablet ascorbic acid, vitamin C, 500 mg capsule Take 1 tablet by mouth. cholecalciferol (VITAMIN D-3) 5,000 unit tablet Take 15,000 Units by mouth daily. cholestyramine (QUESTRAN) 4 gram packet cholestyramine (with sugar) 4 gram powder for susp in a packet clotrimazole-betamethasone (LOTRISONE) cream clotrimazole-betamethasone 1 %-0.05 % topical cream APPLY EXTERNALLY TO ABDOMEN TWICE DAILY NEEDED coenzyme [id number] (CO Q-10, WITH VIT E,) 100-5 mg-unit capsule diphenoxylate-atropine (LOMOTIL) 2.5-0.025 mg per tablet Take 1 tablet by mouth 4 (four) times a day as needed for diarrhea Qty: 30 tablet, Refills: 3 Associated Diagnoses: Diarrhea, unspecified type fluticasone propionate (FLONASE) 50 mcg/actuation nasal spray fluticasone propionate 50 mcg/actuation nasal spray,suspension hydrocortisone (PROCTOSOL HC) 2.5 % rectal cream Proctosol HC 2.5 % topical cream perineal applicator APPLY RECTALLY THREE TIMES A DAY montelukast (SINGULAIR) 10 mg tablet montelukast 10 mg tablet Current inpatient medications: Current Facility-Administered Medications Medication Dose Route Frequency Provider Last Rate Last Dose ??? acetaminophen (TYLENOL) tablet 1,000 mg 1,000 mg feeding tube Q8H MAUREEN Laura Lopes MD 1,000 mg at 04/14/192028 ??? bupivacaine preservative free in 0.9% sodium chloride 250 mL 0.1 % (1,000 mcg/mL) epidural Continuous Yovany Alvarez MD ??? calcium gluconate 12,000 mg in sodium chloride 0.9% 1,000 mL (12 mg/mL) infusion 8 mg/kg/hr intravenous Continuous Neto Moss MD 54.4 mL/hr at 04/15/1952 8 mg/kg/hr at 04/15/1952 ??? [Held by Provider] DULoxetine DR (CYMBALTA) extended release capsule 30 mg 30 mg oral Daily Laura Lopes MD ??? enoxaparin (LOVENOX) syringe 40 mg 40 mg subcutaneous Daily-2100 Laura Lopes MD 40 mg at 04/14/192030 ??? gabapentin (NEURONTIN) capsule 200 mg 200 mg feeding tube BID Laura Lopes MD 200 mg at12028 ??? HYDROmorphone in 0.9% sodium chloride (DILAUDID) 20 mg/100 mL (0.2 mg/mL) infusion (premix) intravenous Continuous Laura Lopes MD 20 mg at 04/13/19 2019 ??? lidocaine PF (XYLOCAINE) 10 mg/mL (1 %) preservative free injection 10-20 mg 1-2 mL subcutaneous Once Neto Moss MD ??? naloxone (NARCAN) 0.4 mg/mL injection 0.04-0.4 mg 0.04-0.4 mg intravenous Q10 Min PRN Laura Lopes MD ??? ondansetron (ZOFRAN) injection 4 mg 4 mg intravenous Q6H PRN Laura Lopes MD ??? prochlorperazine (COMPAZINE) injection 10 mg 10 mg intravenous Q6H PRN Laura Lopse MD ??? sodium chloride 0.9 % irrigation PRN Greyson Reeves MD 1,000 mL at 04/13/19 1551 ??? sodium chloride 0.9% flush 0.5-20 mL 0.5-20 mL intra-catheter Q8H [facility] Laura Lopes MD 10 mL at 04/14/19 0532 ??? sodium chloride 0.9% flush 0.5-20 mL 0.5-20 mL intra-catheter PRN Laura Lopes MD 10 mL at 04/14/19 2320 ??? sodium chloride 0.9% flush 0.5-20 mL 0.5-20 mL intra-catheter Q8H [facility] Laura Lopes MD 10 mL at 04/14/19 0531 ??? sodium chloride 0.9% flush 0.5-20 mL 0.5-20 mL intra-catheter PRN Laura Lopes MD ??? sodium chloride 0.9% flush 5-10 mL 5-10 mL intra-catheter Q12H [facility] Neto Moss MD 10 mL at 04/14/19 2319 ??? sodium chloride 0.9% flush 5-20 mL 5-20 mL intra-catheter PRN Neto Moss MD ??? sodium chloride 0.9% infusion 125 mL/hr intravenous Continuous Neto Moss MD 125 mL/hr at 04/15/19 0721 125 mL/hr at 04/15/19 0721 Facility-Administered Medications Ordered in Other Encounters Medication Dose Route Frequency Provider Last Rate Last Dose ??? L-arginine 1.25%/L-lysine 1.25% infusion 1,000 mL 1,000 mL intravenous Continuous Meagan Amaya MD Allergies: Allergies as of 04/11/2019 - Reviewed 04/09/2019 Allergen Reaction Noted ??? Ezetimibe-simvastatin Muscle pain and Unknown 01/11/2012 ??? Ramipril Cough 12/30/2017 Review of systems: Review of systems per HPI and otherwise all other systems are negative. Physical exam: Temp: [36.3 ??C (97.3 ??F)-37.6 ??C (99.7 ??F)] 37.1 ??C (98.8 ??F) Pulse: [94-114] 106 Resp: [16] 16 BP: (102-151)/(36-74) 151/74 GENERAL: well appearing, well developed. Laying supine in bed, breathing comfortably. HENT: normocephalic, atraumatic. Moist mucous membranes. No pharyngeal exudates or erythema. Negative Cvostek's sign EYES: PERRL. EOMI. Anicteric conjunctiva. No exophthalmos. No lid lag. No lagophthalmos. NECK: thyroid normal size, non-tender, no palpable nodules CARDIOVASCULAR: Normal S1, S2. Tachycardic rate; normal rhythm. 2/6 BRANDI at RUSB; No lower extremityedema PULMONARY: symmetric chest expansion bilaterally. Lungs clear to auscultation bilaterally. No wheezes, rhonchi or crackles. ABDOMEN: soft, pink stoma at LLQ with serosanguinous output in ostomy bag; dressings c/d/i MUSCULOSKELETAL: no clubbing, cyanosis or edema. No hammertoe deformities or loss of arch on feet GENITOURINARY: deferred. SKIN: no rashes, petechiae or ecchymoses. No onycholysis of hands. Hair normal texture. Warm and moist. NEURO: alert and oriented x3. CN II-XII grossly normal. Moving all extremities spontaneously. Sensation to gross touch intact. Reflexes normal and symmetric. PSYCH: appropriate affect. Laboratory results: Lab Results Component Value Date WBC 4.2 04/15/2019 HGB 8.5 (L) 04/15/2019 HCT 26.1 (L) 04/15/2019 MCV 95.3 04/15/2019 LABPLAT 88 (L) 04/15/2019 Lab Results Component Value Date GLUCOSE 112 04/15/2019 CALCIUM 8.0 (L) 04/15/2019 SODIUM 140 04/15/2019 POTASSIUM 3.8 04/15/2019 CO2 23 04/15/2019 CHLORIDE 110 04/15/2019 BUNSER 17 04/15/2019 CREATININE 0.89 04/15/2019 No results found for: HGBA1C Lab Results Component Value Date PTH 554 (H) 04/14/2019 CALCIUM 8.0 (L) 04/15/2019 CAION 4.59 04/15/2019 PHOS 2.2 (L) 04/14/2019 Lab Results Component Value Date ALT 13 04/14/2019 AST 37 04/14/2019 ALKPHOS 66 04/14/2019 BILITOT 1.1 04/14/2019 No results found for: TSH, FREET4, THYROIDAB No results found for: THYROGLOBULI, THGABINT No results found for: PROLACTIN, CORTISOL, ACTH, FSH, LH, ESTRADIOL, IGF1 No results found for: TESTOSTERONE, TESTOSTFREE No results found for: CHOL, HDL, LDL, TRIG No components found for: UAGLU, UABIL, UAKET, UASG, UARBC, UAPH, UAPRO, UAURO, UANIT, UALEUK Assessment and plan: Mrs Chung is a 68??yo F??with a PMH remarkable for HLD, HTN, and 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 Currently on peptide receptor radionuclide therapy, octreotide, now??admitted due to large bowel obstruction for whom endocrinology has been consulted for management of hypocalcemia. Hypocalcemia Assessment & Plan History of elevated serum Ca to 11.1, thought 2/2 metastatic bony disease. Received denosumab 03/30 120mg SQ. Ca on presentation to [facility] 8.2; following surgical procedure, Ca acutely dropped to 6.4 (7.2 corrected for albumin) with ANNE-MARIE. 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 Unclear cause of acute drop following surgery -> possibly exacerbated by decrease in GFR vs phosphorus supplementation. No blood products documented intraop. Asymptomatic by severe drop. - Recommend decreasing calcium gtt to 4mg/kg/hr; trend iCa and CMP q6 - PTH elevated: likely appropriately reactive to acute hypocalcemia, but cannot rule out prior primary hyperparathyroid as no prior values available; will need repeat as outpatient - can resume home vitamin d supplementation when cleared for po/per tube intake by primary team - Continue to hold calcitriol pending improvement on gtt +/- oral calcium supplementation when ableto take PO - Denosumab induced hypocalcemia may require significant po supplementation at discharge; recommendagainst scheduled repeat dose ANNE-MARIE (acute kidney injury) (CMS/HCC) Assessment & Plan Cr elevated post surgery from bl 0.8 -> 1.17; relative oliguria: improving - Consider bladder scan for possible obstruction, kidney ultrasound for hydronephrosis pending improvement with IVF - Consider renal consult if failure to improve Thank you for involving us in the care of this patient. Endocrinology Consult Service will continueto follow. ??Please do not hesitate to contact us with any further questions. (Endocrine Non-Diabetes??Consult Fellow's Phone) ?? jM Chiu MD Internal Medicine PGY-2 Cosigned by Phoenix Angelo MD at 04/15/2019 5:41 PM CDT Associated attestation - Phoenix Angelo Jr., MD - 04/15/2019 5:41 PM CDT I have seen and examined the patient on 04/15/19. I agree with the findings and plan of care as documented in the resident's/fellow's note. * Chalino Claire - 04/14/2019 3:54 PM CDT Spiritual Care Note Chaplain Zafar Claire 04/14/2019 04/14/19 1500 Time Spent Start Time 0320 Stop Time 0335 Time Calculation (min) 15 min Patient Spiritual Assessment Spirituality Assessed Yes Jewish Affiliation Quaker Active in Restorationism Yes Clinical Encounter Type Visited With Patient and family together Response Type Routine visit Routine Visit Introduction Reason for visit Support Referral From Nurse Outcomes and Interventions Outcomes Preserve dignity and respect;Establish rapport and connectedness Interventions Active listening * Shruti Ralph MD - 04/14/2019 2:19 PM CDT Images from the original note were not included. Acute Pain Service Analgesic Catheter Follow up Note?? Patient is a 68-year-old female with chief complaint of acute post-operative pain. POD#: 1 Catheter Day#: 2 Surgery: EXPLORATORY LAPAROTOMY (N/A); COLOSTOMY (N/A) Subjective: Patient reports acute post-operative pain related to her abdominal incisions that has been progressively improving since surgery. Pain worse with movement and muscle tension. Pain improves with rest.Pain is non-radiating. Pain is currently 6/10 at rest, worsens to 8/10 with coughing, worsens to 10/10 with movement. Pain occasionally subsides. Patient reports that her hydromorphone NETWORK MANAGER provides partial relief. Patient reports that her current epidural is not as effective as an epidural that shepreviously had (however, her epidural rate was decreased to 3 mL/hr due to hypotension). Denies side effects from her medications. Current medication regimen: APAP 1000 mg PT Q8H MAUREEN, gabapentin 200 mg PT BID, bupivicaine at 3 ml/hr, hydromorphone NETWORK MANAGER Laboratory studies notable for HH 10.1/30.2, plt 119, Cr 1.19 (0.86) (new ANNE-MARIE). Verbal Pain Score (0-10): Pain is currently 6/10 at rest, worsens to 8/10 with coughing, worsens to 10/10 with movement. Current Facility-Administered Medications Medication Dose Route Frequency Last Rate Last Dose ??? acetaminophen (TYLENOL) tablet 1,000 mg 1,000 mg feeding tube Q8H MAUREEN ??? bupivacaine preservative free in 0.9% sodium chloride 250 mL 0.1 % (1,000 mcg/mL) epidural Continuous ??? calcium gluconate 12,000 mg in sodium chloride 0.9% 1,000 mL (12 mg/mL) infusion 6 mg/kg/hr intravenous Continuous ??? [Held by Provider] DULoxetine DR (CYMBALTA) extended release capsule 30 mg 30 mg oral Daily ??? enoxaparin (LOVENOX) syringe 40 mg 40 mg subcutaneous Daily-2100 ??? gabapentin (NEURONTIN) capsule 200 mg 200 mg feeding tube BID 200 mg at 04/14/19 0958 ??? HYDROmorphone in 0.9% sodium chloride (DILAUDID) 20 mg/100 mL (0.2 mg/mL) infusion (premix) intravenous Continuous 20 mg at 04/13/19 2019 ??? magnesium sulfate 2 g/50 mL in water (premix) 2 g 2 g intravenous Once ??? naloxone (NARCAN) 0.4 mg/mL injection 0.04-0.4 mg 0.04-0.4 mg intravenous Q10 Min PRN ??? ondansetron (ZOFRAN) injection 4 mg 4 mg intravenous Q6H PRN ??? prochlorperazine (COMPAZINE) injection 10 mg 10 mg intravenous Q6H PRN ??? sodium chloride 0.9 % irrigation PRN 1,000 mL at 04/13/19 1551 ??? sodium chloride 0.9% bolus 1,000 mL 1,000 mL intravenous Once 500 mL/hr at 04/14/19 1314 1,000 mL at 04/14/19 1314 ??? sodium chloride 0.9% flush 0.5-20 mL 0.5-20 mL intra-catheter Q8H MAUREEN 10 mL at 04/14/19 0532 ??? sodium chloride 0.9% flush 0.5-20 mL 0.5-20 mL intra-catheter PRN ??? sodium chloride 0.9% flush 0.5-20 mL 0.5-20 mL intra-catheter Q8H MAUREEN 10 mL at 04/14/19 0531 ??? sodium chloride 0.9% flush 0.5-20 mL 0.5-20 mL intra-catheter PRN ??? sodium chloride 0.9% infusion 125 mL/hr intravenous Continuous 125 mL/hr at 04/14/19 1202 125 mL/hr at 04/14/19 1202 Facility-Administered Medications Ordered in Other Encounters Medication Dose Route Frequency Last Rate Last Dose ??? [START ON 04/15/2019] L-arginine 1.25%/L-lysine 1.25% infusion 1,000 mL 1,000 mL intravenous Continuous Objective: Vitals: 04/14/19 1140 BP: Pulse: 114 Resp: 19 Temp: 36.7 ??C (98.1 ??F) SpO2: 100% Physical Exam: ?? General: [x] No acute distress HEENT: [x] Normocephalic, atraumatic Respiratory: [x] Unlabored breathing Cardiovascular: [x] Regular rate and rhythm Abdomen: [x] dressings in place, soft, tender to palpation Psychiatric: [x] Normal mood, affect, insight Skin: [x] No rashes or lesions Neuro: [x] Alert and oriented x 3 Motor: [x] Moves all extremities well ?? Labs: Chem/LFT Lab History Some values may be hidden. Unless noted otherwise, only the newest values recorded on each date aredisplayed. Labs-Chem/LFT Latest Ref Range 03/02/19 03/30/19 04/12/19 04/14/19 Sodium 135 - 145 mmol/L 146 (A) 141 139 142 Creatinine 0.60 - 1.10 mg/dL 0.83 0.93 0.83 1.19 (A) Bilirubin, total 0.1 - 1.2 mg/dL 0.5 1.0 AST 10 - 45 Units/L 25 30 ALT 7 - 45 Units/L 16 18 CrCl- Actual Body Weight (Cockcroft-Gault) 81.2 71 81.3 56.7 Some values recorded on this date have been omitted. (A) Abnormal value Total IV opioid patient received __1__ mg in__8__hr. Total PO opioid patient received__0__mg in__24__hr. Anticoagulant: [] Warfarin [] Heparin [x] Lovenox [] Plavix []Other: Last dose of anticoagulant received: enoxaparin 04/12/19 @ 3977 Epidural Analgesic Infusion: [x] Bupivacaine 0.1% mL/hour: Running at 3 mL/hr Catheter (site): [x] minimal tenderness and dressing intact [] Catheter dislodged Side effects: [] Nausea [] Pruritis [] Sedation [] Weakness in lower extremity Impression: ?? [] Pain is well controlled [x] Pain is moderately controlled [] Pain is poorly controlled Plan: [x] Continue present management Epidural/Local Anesthetic Infusion: ?? [] Bupivacaine 0.15% clinician bolus: [] Bupivacaine 0.1% clinician bolus: [] Ropivacaine 0.2% clinician bolus: ?? [x] No Change, consider increasing infusion to 6 mL/hr if systolic BP remains sustained >100 mmHg [] Increase infusion to___ ml/hr [] Decrease infusion to___ml/hr [] Analgesic Catheter out, tip intact ?? IV NETWORK MANAGER: ?? [x] Hydromorphone [] Morphine [] Fentanyl No basal rate/demand dose__0.1 mg 10___min lock out __0.6____mg hourly max dose. ?? [] Discontinue NETWORK MANAGER [] IV NETWORK MANAGER demand amount to []increase____mg []decrease____mg with____ minute lockout interval for mg max hourly dose. ?? Systemic Analgesics: [x] Continue multi-modal analgesia with APAP 1000 mg Q8H MAUREEN Decrease gabapentin to 300 mg QHS in setting of ANNE-MARIE (caution use of NSAIDs and gabapentin) [x] We will continue to follow. [] Sign off at this time/Please call if further pain management questions arise. ?? [] On Q-ball home teaching completed. Verbal and written instructions provided to patient. Signs ofanesthetic toxicity discussed with patient. Patient verbalized understanding. ?? [x] Plan of care done in collaboration with APS attending, [x] Plan of care discussed with Primary Service. Shruti Ralph M.D. Resident, Pain Management, Department of Anesthesiology [facility], [facility] 04/14/2019 2:26 PM Cosigned by Aleksandra Gonzalez MD at 04/14/2019 3:13 PM CDT Associated attestation - Aleksandra Gonzalez MD - 04/14/2019 3:13 PM CDT I have seen and examined the patient on 04/14/19. I agree with the findings and plan of care as documented in the resident's/fellow's note. * Boris Wilye, Poncho Hopper MD - 04/14/2019 1:32 PM CDT CRS Progress Note Subjective The patient is a 68 yo F with metastatic ileal neuroendocrine tumor, presenting with a large bowel obstruction, now on POD#1 s/p Ex Lap + End colostomy Patient was seen and examined this morning Overnight was found to have hypocalcemia. Was tachycardic overnight, BP borderline low. NGT in place to LIS Urine output has been low, Masterson in place. Colostomy without output yet. Ambulating Using the IS NPO Objective Vitals: 24hr Min/Max: Temp Min: 36.1 ??C (97 ??F) Max: 37.4 ??C (99.3 ??F) Pulse Min: 79 Max: 130 BP Min: 85/56 Max: 149/82 Resp Min: 10 Max: 21 SpO2 Min: 91 % Max: 100 % Most Recent : Vitals: 04/14/19 1140 BP: Pulse: 114 Resp: 19 Temp: 36.7 ??C (98.1 ??F) SpO2: 100% I/O last 2 completed shifts: In: 1000 [I.V.:1000] Out: 1135 [Urine:610; Drains:425; Blood:100] I/O this shift: In: 0 Out: 150 [Urine:100; Stool:50] Physical Exam: Physical Exam Constitutional: She is oriented to person, place, and time. She appears well- developed and well-nourished. HENT: Head: Normocephalic and atraumatic. NGT in place to LIS Eyes: Pupils are equal, round, and reactive to light. Conjunctivae are normal. Cardiovascular: Normal rate and regular rhythm. Pulmonary/Chest: Effort normal. Abdominal: Incision c/d/i, abdomen soft, slightly distended, TTP around incision, no rebound, no rigidity Colostomy pink and healthy, no output yet, Genitourinary: Genitourinary Comments: Masterson in place, low urine oujtput, urine clear yelliow. Musculoskeletal: Normal range of motion. Neurological: She is alert and oriented to person, place, and time. Skin: Skin is warm and dry. Lab/Radiology/Diagnostic Review: Laboratory review: Lab results in the last 24 hours: Recent Results (from the past 24 hour(s)) CBC with auto differential Collection Time: 04/14/19 1:45 AM Result Value Ref Range WBC 6.3 3.8 - 9.9 K/cumm Hgb 12.2 11.9 - 15.5 g/dL Hct 37.5 35.6 - 45.5 % Plt 145 (L) 150 - 400 K/cumm MPV 10.5 9.1 - 12.3 fL RBC 3.96 3.90 - 5.20 M/cumm MCV 94.7 81.3 - 96.4 fL MCH 30.8 27.1 - 33.3 pg MCHC 32.5 32.3 - 35.7 g/dL RDW CV 14.2 11.1 - 14.9 % RDW SD 48.6 (H) 35.7 - 48.1 fL NRBC abs 0.00 0.00 - 0.01 K/cumm Magnesium Collection Time: 04/14/19 1:45 AM Result Value Ref Range Magnesium 1.8 1.4 - 2.5 mg/dL Phosphorus Collection Time: 04/14/19 1:45 AM Result Value Ref Range Phosphorus, pl 1.6 (L) 2.3 - 4.5 mg/dL Differential, auto Collection Time: 04/14/19 1:45 AM Result Value Ref Range Neutrophil abs 5.1 1.7 - 6.5 K/cumm Imm gran abs 0.0 0.0 - 0.1 K/cumm Lymphocyte abs 0.3 (L) 0.8 - 3.3 K/cumm Monocyte abs 0.9 (H) 0.2 - 0.8 K/cumm Eosinophil abs 0.0 0.0 - 0.5 K/cumm Basophil abs 0.0 0.0 - 0.1 K/cumm Neutrophil pct 80.6 % Imm gran pct 0.2 % Lymphocyte pct 4.3 % Monocyte pct 14.6 % Eosinophil pct 0.0 % Basophil pct 0.3 % Basic metabolic panel Collection Time: 04/14/19 1:45 AM Result Value Ref Range Sodium 138 135 - 145 mmol/L Potassium, pl 4.4 3.3 - 4.9 mmol/L Chloride 111 (H) 97 - 110 mmol/L CO2 20 (L) 22 - 32 mmol/L Anion gap 7 2 - 15 mmol/L BUN 11 8 - 25 mg/dL Creatinine 0.86 0.60 - 1.10 mg/dL Glucose 157 70 - 199 mg/dL Calcium 6.4 (Critical) 8.5 - 10.3 mg/dL Critical Result Callback Chemistry Collection Time: 04/14/19 1:45 AM Result Value Ref Range Date Notified 20190414 Time Notified 309 TestName Calcium Called/Read Back Kathy Banker Credentials RN Called By be Albumin Collection Time: 04/14/19 1:45 AM Result Value Ref Range Albumin 3.0 (L) 3.5 - 5.0 g/dL Calcium, ionized Collection Time: 04/14/19 5:21 AM Result Value Ref Range Calcium, Ionized 3.36 (L) 4.50 - 5.10 mg/dL Troponin I Collection Time: 04/14/19 6:50 AM Result Value Ref Range Troponin I <0.03 0.00 - 0.03 ng/mL Basic metabolic panel Collection Time: 04/14/19 9:17 AM Result Value Ref Range Sodium 142 135 - 145 mmol/L Potassium, pl 3.9 3.3 - 4.9 mmol/L Chloride 110 97 - 110 mmol/L CO2 23 22 - 32 mmol/L Anion gap 9 2 - 15 mmol/L BUN 15 8 - 25 mg/dL Creatinine 1.19 (H) 0.60 - 1.10 mg/dL Glucose 133 70 - 199 mg/dL Calcium 6.4 (Critical) 8.5 - 10.3 mg/dL Calcium, ionized Collection Time: 04/14/19 9:17 AM Result Value Ref Range Calcium, Ionized 3.66 (L) 4.50 - 5.10 mg/dL CBC without differential Collection Time: 04/14/19 9:17 AM Result Value Ref Range WBC 5.9 3.8 - 9.9 K/cumm Hgb 10.1 (L) 11.9 - 15.5 g/dL Hct 30.2 (L) 35.6 - 45.5 % Plt 119 (L) 150 - 400 K/cumm MPV 11.1 9.1 - 12.3 fL RBC 3.33 (L) 3.90 - 5.20 M/cumm MCV 90.7 81.3 - 96.4 fL MCH 30.3 27.1 - 33.3 pg MCHC 33.4 32.3 - 35.7 g/dL RDW CV 14.3 11.1 - 14.9 % RDW SD 47.1 35.7 - 48.1 fL NRBC abs 0.00 0.00 - 0.01 K/cumm Magnesium Collection Time: 04/14/19 9:17 AM Result Value Ref Range Magnesium 1.6 1.4 - 2.5 mg/dL Phosphorus Collection Time: 04/14/19 9:17 AM Result Value Ref Range Phosphorus, pl 2.5 2.3 - 4.5 mg/dL Critical Result Callback Chemistry Collection Time: 04/14/19 9:17 AM Result Value Ref Range Date Notified 20190414 Time Notified 1120 TestName Calcium Called/Read Back Jane Johns Credentials RN Called By nora Prepare RBC: 2 Units Collection Time: 04/14/19 12:14 PM Result Value Ref Range Product code [id number] Unit Number [id number] Product Blood Type APOS Dispense Status CROSSMATCHED Product code D1345Q19 Unit Number [id number] Product Blood Type APOS Dispense Status CROSSMATCHED Assessment /Plan Problem List Items Addressed This Visit Digestive * (Principal) Large bowel obstruction (CMS/HCC) - Primary Relevant Orders Case Request Operating Room: EXPLORATORY LAPAROTOMY, COLOSTOMY, RESECTION SMALL BOWEL (Completed) The patient is a 68 yo F with a PMH remarkable for HLD, HTN, and 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 Currently on peptide receptor radionuclide therapy, octreotide, now admitted due to large bowel obstruction. Now on POD#1 s/p Ex Lap + End colostomy. Postoperative course remarkable for tachycardia, slightly low BP, oliguria, hypocalcemia. Patient so far has received 1L bolus of NS, 2mg Ca Gluconate, 1mg Magnesium Sulfate. iCal 3.6 from 3.4 after 2mg Ca Gluconate. Plan: NPO Continue NS @100cc/h - Will give 1L bolus of NS now. Will start Ca Drip after giving 2mg more of Ca gluconate. Continue NGT to LIS Pain and nausea management Encourage ambulation and use of IS DVT/PE Prophylaxis F/u Labs - BMP q6h + iCal q6h Replete Lytes PRN Consult Endocrinology Appreciate Med Onc recs. Strict I&Os Monitor vitals Seen and discussed with chief resident, discussed with attending Poncho Wiley MD PGY-1 Urology - covering CRS P: [id number] Cosigned by Greyson Reeves MD at 04/15/2019 8:16 AM CDT * Yovany Alvarez MD - 04/13/2019 11:29 PM CDT Post-Op Check Note [place] 1950 [id number] Pt returns from the OR 04/13/2019 s/p EXPLORATORY LAPAROTOMY, COLOSTOMY by Greyson Reeves MD for Pre-op Diagnosis * Large bowel obstruction (CMS/HCC) [K56.609] Subjective: Pain control adequate No fevers or chills No chest pain or shortness of breath No nausea or vomiting OBJECTIVE: Vitals: Vitals: 04/13/19 2315 BP: 118/73 Pulse: 122 Resp: Temp: SpO2: 95% General: No acute distress, resting comfortably, AAOx3 Pulmonary: Nonlabored breathing, equal chest rise Abdomen: Soft, non-tender, non-distended; abdominal dressing with minimal strike-through; ostomy bag with bowel sweat. Extremities: Warm, well perfused Plan: - Doing well - pathway. 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 Referral Reason Discharge Planning County Information [facility] [place], [place] Patient Information Primary Caregiver Self Support System Spouse/Significant Other;Children Support system contact info (name, phone, availablity) , Alejo Chung ; daughter Caroline Chung Prior Level of Functioning Durable Medical Equipment None Living Arrangement House;Lives with someone Behavior Oriented Potential Discharge Needs Anticipated discharge level of care Return Home Communications Fiduciary Responsibility Patient/Designated decision maker was informed of [facility] fiduciary relationship as necessary Impression: Patient is a 68 y.o. female with chief complaint of abdominal pain and vomiting. Additional Information/Options Discussed: Patient interviewed at bedside for initial assessment. Address and phone verified to face sheet. , Alejo and daughter, Caroline, at bedside at the time of interview. Transportation: family Problem: ensure safe discharge when medically stable Plan/Goal Includes: CM to follow for needs Insurance verified as: Medicare Admit Source: Patient indicated she transferred from [facility] but that she had not been admitted but rather came from their ED PCP: verified as Dr. Julio César Briseno Pharmacy: patient indicated she has prescription coverage Based on a [...] in agreement with the aftercare plan. * Poncho Carter MD - 04/13/2019 7:06 AM CDT CRS Progress Note Subjective The patient is a 68 yo F with metastatic ileal neuroendocrine tumor, presenting with a large bowel obstruction. Patient was seen and examined this morning No acute events overnight NGT in place to LIS Got enemas for preparation for colonoscopy this AM Voiding freely No flatus or BMs Ambulating Using the IS NPO Objective Vitals: 24hr Min/Max: Temp Min: 36.6 ??C (97.9 ??F) Max: 37.3 ??C (99.1 ??F) Pulse Min: 79 Max: 101 BP Min: 116/56 Max: 145/59 Resp Min: 16 Max: 18 SpO2 Min: 94 % Max: 99 % Most Recent : Vitals: 04/13/19 0555 BP: 145/59 Pulse: 87 Resp: 18 Temp: 37.3 ??C (99.1 ??F) SpO2: 95% I/O last 2 completed shifts: In: 1349 [I.V.:1349] Out: 1300 [Urine:550; Drains:750] No intake/output data recorded. Physical Exam: Physical Exam Constitutional: She is oriented to person, place, and time. She appears well- developed and well-nourished. HENT: Head: Normocephalic and atraumatic. NGT in place to LIS Eyes: Pupils are equal, round, and reactive to light. Conjunctivae are normal. Cardiovascular: Normal rate and regular rhythm. Pulmonary/Chest: Effort normal. Abdominal: Slightly distended, slightly TTP in RLQ, no rebound, no rigidity Musculoskeletal: Normal range of motion. Neurological: She is alert and oriented to person, place, and time. Skin: Skin is warm and dry. Lab/Radiology/Diagnostic Review: Laboratory review: Lab results in the last 24 hours: Recent Results (from the past 24 hour(s)) Basic metabolic panel Collection Time: 04/12/19 9:48 PM Result Value Ref Range Sodium 139 135 - 145 mmol/L Potassium, pl 3.9 3.3 - 4.9 mmol/L Chloride 108 97 - 110 mmol/L CO2 24 22 - 32 mmol/L Anion gap 7 2 - 15 mmol/L BUN 16 8 - 25 mg/dL Creatinine 0.83 0.60 - 1.10 mg/dL Glucose 155 70 - 199 mg/dL Calcium 8.0 (L) 8.5 - 10.3 mg/dL CBC without differential Collection Time: 04/12/19 9:48 PM Result Value Ref Range WBC 5.0 3.8 - 9.9 K/cumm Hgb 13.6 11.9 - 15.5 g/dL Hct 40.9 35.6 - 45.5 % Plt 130 (L) 150 - 400 K/cumm MPV 10.3 9.1 - 12.3 fL RBC 4.49 3.90 - 5.20 M/cumm MCV 91.1 81.3 - 96.4 fL MCH 30.3 27.1 - 33.3 pg MCHC 33.3 32.3 - 35.7 g/dL RDW CV 14.3 11.1 - 14.9 % RDW SD 46.8 35.7 - 48.1 fL NRBC abs 0.00 0.00 - 0.01 K/cumm Magnesium Collection Time: 04/12/19 9:48 PM Result Value Ref Range Magnesium 2.1 1.4 - 2.5 mg/dL Phosphorus Collection Time: 04/12/19 9:48 PM Result Value Ref Range Phosphorus, pl 1.2 (L) 2.3 - 4.5 mg/dL Type and screen Collection Time: 04/12/19 9:48 PM Result Value Ref Range Yolande, indirect Negative ABO Rh AB Positive Protime-INR Collection Time: 04/12/19 9:48 PM Result Value Ref Range PT 11.3 8.6 - 13.0 sec INR 1.05 0.80 - 1.20 aPTT Collection Time: 04/12/19 9:48 PM Result Value Ref Range aPTT 26.3 25.0 - 37.0 sec Assessment /Plan Problem List Items Addressed This Visit Digestive * (Principal) Large bowel obstruction (CMS/HCC) - Primary Relevant Orders Case Request GI: SIGMOIDOSCOPY (Completed) The patient is a 68 yo F with a PMH remarkable for HLD, HTN, and 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 Currently on peptide receptor radionuclide therapy, octreotide, now admitted due to large bowel obstruction. Plan: NPO Continue IVF Continue NGT to LIS Flex Sig today with GI - no stent Plan for possible OR on Sunday 04/15 Pain and nausea management Encourage ambulation and use of IS DVT/PE Prophylaxis One-time dose fo Ativan 0.5mg this AM Will get Med Onc on board. F/u Labs Replete Lytes PRN Strict I&Os Monitor vitals Seen and discussed with chief resident, discussed with attending Poncho Wiley MD PGY-1 Urology - covering CRS P: [phone] Cosigned by Greyson Reeves MD at 04/13/2019 7:18 AM CDT Associated attestation - Greyson Reeves MD - 04/13/2019 7:18 AM CDT I have seen and examined the patient on 04/13/19. I agree with the findings and plan of care as documented in the resident's/fellow's note. documented in this encounter H&P Notes * Laura Lopes MD - 04/13/2019 1:02 PM CDT I have reviewed the H&P, examined the patient, and endorse the findings as written. Plan of Care : Based on the above findings, I consider La Chung to be an acceptable risk for :Procedure(s): EXPLORATORY LAPAROTOMY COLOSTOMY RESECTION SMALL BOWEL Cosigned by Greyson Reeves MD at 04/13/2019 3:01 PM CDT Source Note - Bartniles Maggy CECILIA Paul - 04/13/2019 8:19 AM CDT Images from the original note were not included. [facility] Preoperative Evaluation Record Inpatient Preoperative Evaluation ([facility]) Date: 04/13/19 Anesthesia Evaluation Procedure(s): EXPLORATORY LAPAROTOMY COLOSTOMY RESECTION SMALL BOWEL Pre-Op Diagnosis Codes: * Large bowel obstruction (CMS/HCC) [K56.609] HISTORY HPI La M Vivod is a 68 y.o. female who is [...] and TIA Cardiovascular + Hypertension + Hyperlipidemia Pertinent negatives: CAD ; VT ; valvular heart disease; atrial fibrillation; arrhythmia; [...] MALIGNANT HYPERTHERMIA <<<< - questionable episode in [place] . Patient and her daughter denies any [...] > 5 YEARS N/A 02/17/2019 ? ? IA REMOVAL OF TONSILS,<12 Y/O [...] a month -- -- Historical Provider, coenzyme [id number] (CO Q-10, WITH VIT E,) 100-5 [...] at 04/12/191731 ??? [Held by Provider] DULoxetine DR TOSCANOALGURINDER) extended release capsule 30 mg, 30 mg, [...] 04/12/2019: 16 mg/dL Creatinine: 04/12/2019: 0.83 mg/dL Anesthesia Plan * Chalino Mo MD - 04/12/2019 1:42 AM CDT History and Physical - Colon and Rectal Surgery Subjective Patient is a 68 y.o. female with chief complaint of abdominal pain and vomiting. HPI: Ms. Chung is a 68yoF with a PMH significant for HLD, HTN, and metastatic ileal neuroendocrine tumors/p ex lap, BSO, partial omentectomy and R colectomy on 09/2015 who presents with abdominal pain andvomiting for two days. Patient states that she was last seen by her oncologist on 03/[address] scan was done to evaluatefor progression of her disease while she undergoes PRRT treatment. She has completed 2/4 cycles andis scheduled for her third cycle this 04/15. At that visit she was given a dose of Xgeva (Denosumab) for hypercalcemia. She states that after this dose she started to note a change in her bowel movements as they became firmer. On 04/10, the patient had one small bowel movement in the morning. Her gave her usual injection of octreotide and she later began to experience 02/14, intermittent, cramping abdominal pain that was associated with nausea and an episode of emesis. The pain begins in the suprapubic region and radiates to her LUQ before diffusing across the abdomen. Throughout the day she continued to have additional episodes of emesis and the cramping abdominal pain persisted. She presented to an Urgent Care and was sent to the [facility] ED where a CT scan was performed that demonstrated a possible partial large bowel obstruction. An NGT was placed to suction, a CBC/CMP/lactic acid were obtained that were within normal limits, and a UA was taken that was positive for WBCs but negative for nitrites. She was transferred to [facility] for a high level of care. On arrival the patient notes that her pain is currently well controlled with morphine she was givenat the OSH. She has not been nauseous nor vomited since the NGT was placed, though she notes a persistent lack of appetite for the last 2 days. She admits to some recent dysuria over the past 3-4 days but denies urgency, frequency, or hematuria. She further denies headaches, chest pain, shortness of breath, fevers, chills, recent weight loss, diarrhea or hematochezia. Past Medical History: Diagnosis Date ??? Cancer (CMS/HCC) ??? Hypercholesteremia ??? Hypertension ??? Motion sickness [...] > 5 YEARS N/A 02/17/2019 ? ? IA REMOVAL OF TONSILS,<12 Y/O Tonsillectomy - (Added by TW Conv) ??? IA TOTAL ABDOM HYSTERECTOMY Hysterectomy - (Added by TW Conv) HOME MEDICATIONS : DULoxetine DR (CYMBALTA) 30 mg capsule ergocalciferol (VITAMIN D) 50,000 unit capsule MYRBETRIQ 50 mg tablet extended release 24 hr octreotide (SandoSTATIN) 100 mcg/mL (1 mL) syringe olmesartan-hydrochlorothiazide (BENICAR HCT) 20-12.5 mg per tablet simvastatin (ZOCOR) 20 mg tablet olmesartan-hydrochlorothiazide (BENICAR HCT) 40-25 mg per tablet ascorbic acid, vitamin C, 500 mg capsule cholecalciferol (VITAMIN D-3) 5,000 unit tablet cholestyramine (QUESTRAN) 4 gram packet clotrimazole-betamethasone (LOTRISONE) cream coenzyme [id number] (CO Q-10, WITH VIT E,) 100-5 mg-unit capsule diphenoxylate-atropine (LOMOTIL) 2.5-0.025 mg per tablet fluticasone propionate (FLONASE) 50 mcg/actuation nasal spray hydrocortisone (PROCTOSOL HC) 2.5 % rectal cream montelukast (SINGULAIR) 10 mg tablet AMOXICILLIN 500 mg capsule cephalexin (KEFLEX) 500 mg capsule trospium (SANCTURA) 20 mg tablet valsartan-hydroCHLOROthiazide (DIOVAN-HCT) 80-12.5 mg per tablet wheat dextrin (BENEFIBER CLEAR SF, DEXTRIN, ORAL) Allergies Allergen Reactions ??? Ezetimibe-Simvastatin Muscle pain and Unknown Muscle weakness ??? Ramipril Cough Social History Tobacco Use ??? Smoking status: Never Smoker ??? Smokeless tobacco: Never Used Substance Use Topics ??? Alcohol use: Yes Alcohol/week: 0.6 oz Types: 1 Shots of liquor per week Family History Problem Relation Age of Onset ??? Breast cancer Sister Adenocarcinoma of breast - (Added by TW Conv) ??? Suicidality Father Family history of suicide - (Added by TW Conv) ??? Other (old age) Mother Review of Systems Constitutional: Positive for appetite change, fatigue. Negative for fever and unexpected weight change. HENT: Negative for trouble swallowing. Eyes: Negative for scleral icterus Respiratory: Negative for cough, shortness of breath and wheezing. Cardiovascular: Negative for chest pain, palpitations and leg swelling. Gastrointestinal: Positive for abdominal distention, abdominal pain, nausea and vomiting. Negative for blood in stool, constipation, diarrhea. Endocrine: Negative for uncontrolled blood sugars Genitourinary: Negative for difficulty urinating and hematuria. Positive for dysuria. Musculoskeletal: Negative for arthralgias. Skin: Negative for color change and rash. Neurological: Negative for dizziness, syncope, weakness. Hematological: Negative for adenopathy. Does not bruise/bleed easily. Psychiatric/Behavioral: Negative for agitation and confusion. All other systems reviewed and are negative. Objective Vitals: Arrival Vitals [04/12/19 0025] Temp 36.6 ??C (97.9 ??F) Pulse 97 Resp 18 BP 127/68 SpO2 93 % Temp src Oral Heart Rate Source Monitor Patient Position Sitting BP Location Right arm FiO2 (%) Most Recent : Vitals: 04/12/19 0025 BP: 127/68 Pulse: 97 Resp: 18 Temp: 36.6 ??C (97.9 ??F) SpO2: 93% Physical exam: Constitutional: Appears well-developed and well-nourished. No distress. HENT: No nasal cannula nor NGT Eyes: Conjunctivae are normal. Neck: Normal range of motion. Cardiovascular: Normal rate, regular rhythm and intact distal pulses. Pulmonary/Chest: Effort normal and breath sounds normal. No respiratory distress. No wheezes nor rales Abdominal: Mildly distended. No appreciable mass. There is tenderness to light and deep palpation in the RLQ, suprapubic region and LLQ without rebound or guarding. Musculoskeletal: No edema or deformity. Lymphadenopathy: No cervical adenopathy. Neurological: Alert and oriented to person, place, and time. Skin: Skin is warm and dry. No rash noted. Not diaphoretic. No erythema. Psychiatric: Normal mood and affect. Lab/Radiology/Diagnostic Review: I have reviewed the lab and imaging studies from the OSH with the following significant findings. CT 04/11/19: Widely metastatic disease with concern for partial large bowel obstruction Assessment/Plan 1. Large bowel obstruction (CMS/HCC) - review OSH labs and upload imaging - nominate OSH CT for [facility] radiology reading - obtain AM labs (CBC, BMP, Mg, Phos) - NPO, NGT to Nabeel HERMANF at 100cc/hr - consider GI consult for possible stent placement - IV pain medications and anti-emetics 2. Dysuria - obtain UA w/reflex to microscopy - obtain urine culture Dispo: pending likely GI consult and resolution of LBO Pain: PRN Dilaudid Diet: NPO IVF: 100cc/hr D5 1/2 NS DVT PPX: Lovenox, SCDs LTDs: 1 PIV, NGT Code: Full Chalino Mo MD Colon and Rectal Surgery 04/12/20191:42 AM Cosigned by Woodrow Cerna MD at 04/13/2019 12:22 PM CDT documented in this encounter Procedure Notes * Leanne Bach RN - 04/14/2019 11:08 PM CDT Vascular Access Nurse: Procedure Note Summary of treatment provided to patient today is as follows : . Bedside Procedure Time out/Checklist (last 4 hours) Pre-Op Checklist Row Name 04/14/19224004/14/19 194 Patient/Chart Verification Patient ID Verified Verbal;Armband -CB -- ID Band Applied Yes -CB -- Arm Bands On Allergies -CB ID;Allergies;Fall -EK Pre-op Lab/Test Results Available In chart -CB -- Site Marked Yes -CB -- Site Prep Done Yes -CB -- Procedure Verification Correct Patient Yes -CB -- Correct Site Yes -CB -- Correct Procedure Yes -CB -- Correct Laterality Yes left only -CB -- Anesthesia Verification Antibiotic Status Not applicable -CB -- User Guzman (r) = Recorded By, (t) = Taken By, (c) = Cosigned By Initials Name EK IRVING Tracy CB, RN Vascular Access Documentation (last 4 hours) [facility] Additional Procedures Row Name 04/14/192240 PICC Screening Questionnaire Order written on the chart for PICC insertion or placement? Y -CB Information form/Consent Obtained from POA/ Family Y -CB Is there an order from Renal giving ok to place PICC line? N/A -CB Are there any location restrictions? Y -CB Which location is NOT accessible for line placement? Right -CB Reason location not accessible for line placement Other (comment) IR Recommendation to only use left arm for future PICCs d/t diminutive veins -CB Does the patient have history of DVT or SVC syndrome? N -CB Does the patient currently have blood clots in chest / arms? N -CB Review of all IV meds/drips completed Yes -CB Patient allergies reviewed? Y -CB Labs Reviewed if applicable INR;Blood Cultures;Platelet count;Creatinine -CB Procedures Line Type PICC double -CB Time in 2219 -CB Time out 2314 -CB Time Calculation (min) 55 min -CB Vascular Access Procedures PICC line assessment;PICC line placement;PICC dressing change;Education PICC/Midline -CB Patient Response Tolerated (no change in status) -CB Notification Reason for Communication Status update -CB Role of Person Notified Nurse -CB Method of Communication Face to face -CB Response In department -CB Peripheral IV 04/11/19 20 G Right Antecubital IV Properties Placement Date: 04/11/19 -NS Placed by External Staff?: Other hospital -NS IV Change Due: 04/15/19 -NS Type: Angiocath -NS Size (Gauge): 20 G -NS Location Orientation: Right -NS Location: Antecubital -NS Peripheral IV 04/13/19 18 G Left Hand IV Properties Placement Date: 04/13/19 -BS Placement Time: 1557 -BS, created via procedure documentation Size (Gauge): 18 G -BS Location Orientation: Left -BS Location: Hand -BS Site Prep: Alcohol -BS Insertion attempts: 1 -BS PICC Double Lumen 04/14/19 Non-tunneled Power #1 Red, #2 Purple, Left Upper arm;Brachial Line Properties Placement Date: 04/14/19 -CB Placement Time: 2244 -CB Catheter Time Out Checklist Completed: Yes -CB Hand Hygiene Performed: Yes -CB Site Prep: Chlorhexidine -CB Site Prep Agent has Completely Dried Before Insertion: Yes -CB All 5 Sterile Barriers or Appropriate Barriers Used (Gloves, Gown, Cap, Mask, Large Sterile Drape): Yes -CB Local Anesthetic: Injectable -CB, 2 mL Lidocaine 1% CVC Type: Non-tunneled -CB Power injectable: Power -CB Lumen # 1: #1 Red, -CB Lumen # 2: #2 Purple, -CB Size (Fr): 5 -CB Orientation: Left -CB Location: Upper arm;Brachial -CB Technique: Modified seldinger;Internal stiffener stylet removed easily;Ultrasound used to locate and cannulate vein -CB Lot #: [id number] -CB Expiration Date: 02/05/20 -CB Trimmed Length (cm) : 42 cm -CB Line Tip Location : Central -CB Initial Extremity Circumference (cm): 37.5 cm -CB Circumference Reference Point: 5 -CB Initial External Length Catheter (cm): 0 cm -CB Placement Verification: Blood return;Ultrasound;ECG -CB Line Secured by : Securement device -CB Inserted by: Pamela Thomas RN -CB Assisted By: Leanne Bach RN -CB Insertion attempts: 2 -CB, First attempt basilic vein unable to thread guidwire Patient Tolerance: Tolerated well -CB Description (optional): 5Fr Double Lumen Bard Power PICC -CB Site Assessment Clean and dry -CB Dressing Type CHG Dressing -CB Dressing Status Occlusive;Clean, dry, intact -CB Observer Present Yes -CB Dressing Change Due 04/21/19 -CB Lumen #1 Status Blood return noted;Saline locked;Flushes easily;Capped - Needleless;Capped - Disinfectant -CB Lumen # 1 Needleless Device Changed 04/14/19 -CB Lumen #2 Status Blood return noted;Saline locked;Flushes easily;Capped - Needleless;Capped - Disinfectant -CB Lumen #2 Needleless Device Changed 04/14/19 -CB Line Necessity Reason Receiving frequent lab draws;Receiving multiple simultaneous infusions that would require multiple peripheral lines -CB Line Necessity Reviewed With Care Team/Physician -CB User Guzman (r) = Recorded By, (t) = Taken By, (c) = Cosigned By Initials Name GEORGIA Carrillo, IRVING Bach RN Plan: Follow up: Leanne Bach RN documented in this encounter Consult Notes * Cat Chacko RN - 04/23/2019 10:40 AM CDT Assisted another wound/ostomy nurse with application of a pouch. * Pamela Elizabeth RN - 04/22/2019 4:24 PM CDT Pouch intact, reviewed ordering supplies, leaking and pouch needs in future. Will change tomorrow with daughter present. Pamela Elizabeth RN * Pamela Elizabeth RN - 04/17/2019 2:42 PM CDTAssociated Order(s): CONSULT TO WOUND CARE Spoke with RN and spouse patient sleeping. Will continue ostomy education Saturday when daughters present. Daughters not available for care today. RN and spouse in agreement with plan. * Rupali Varela NP - 04/14/2019 2:22 PM CDTAssociated Order(s): IP CONSULT TO ONCOLOGY Oncology Medicine Consult Reason for Consult: pancreatic cancer Requesting Provider: Laura Lopes Chief Complaint: Patient is a 68 y.o. female with chief complaint of bowel obstruction . Subjective HPI: Ms. 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 She presented to [place] where imaging was concerning for a colonic obstruction with a focal transition point at the level of the rectosigmoid junction with stable disease in the liver. She was transferred to [facility] for further care and underwent an ex lap and end colostomy with Dr. Reeves on 04/13. Today she is one day post-op andoverall recovering well. She is up in the chair and her pain is tolerable. NG remains in place withdark, output. She is tolerating ice chips and denies any nausea and emesis. Labs are notable for Cr1.19, Ionized calcium 3.66, phos 2.5, mag 1.6, K 3.9 after repletion. She is alert and oriented x4.Family is at bedside. Prior to acute obstruction, she notes she was doing well at home and caring for all her own ADLs and IADLs. Denies fevers, chills, night sweats, urinary issues, or gait imbalances. SOCIAL HISTORY: Denies smoking. Drinks socially. Denies drugs. She is for 44 and has 4 children. She lives in [place] in [place]. She is currently retired FAMILY HISTORY: Her older sister had breast cancer at 62, invasive ductal carcinoma in left breast with DCIS in right breast at the age of 67. Her daughter has a diagnosis of plantar melanoma at the age of 32, stageIII. Cancer Staging Malignant neoplasm metastatic to liver [...] also underwent right colectomy in [facility] OR by Dr. Greyson Reeves. Biopsy [...] (On Hold) Current day: Day 1, Cycle 16 (Planned for 04/15/2019) Following planned day: Day 1, Cycle 17 (Planned for 06/10/2019) Oncology Supportive Care: DENOSUMAB (XGEVA) INJECTION Current treatment: Treatment 2 (Planned for 04/27/2019) Following planned treatment: Treatment 3 (Planned for 05/25/2019) Past Medical History: Diagnosis Date ??? Cancer [...] > 5 YEARS N/A 02/17/2019 ? ? IA REMOVAL OF TONSILS,<12 Y/O Tonsillectomy - (Added by TW Conv) ??? IA TOTAL ABDOM HYSTERECTOMY Hysterectomy - (Added by TW Conv) Allergies Allergen Reactions ??? Ezetimibe-Simvastatin Muscle pain and Unknown Muscle weakness ??? Ramipril Cough Medications Prior to Admission Medication Sig Dispense Refill Last Dose ??? DULoxetine DR (CYMBALTA) 30 mg capsule daily. Past Week at Unknown time ??? ergocalciferol (VITAMIN D) 50,000 unit capsule Vitamin D2 50,000 unit capsule Past Week at Unknown time ??? MYRBETRIQ 50 mg tablet extended release 24 hr Take 50 mg by mouth daily 1 Past Week at Unknown time ??? octreotide (SandoSTATIN) 100 mcg/mL (1 mL) syringe Inject 1 mL (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) under the skin 3(three) times a day as needed (flushing, cramping, diarrhea) 21 Syringe 5 04/11/2019 at Unknown time ??? olmesartan-hydrochlorothiazide (BENICAR HCT) 20-12.5 mg per tablet Take 1 tablet by mouth dailyPast Week at Unknown time ??? simvastatin (ZOCOR) 20 mg tablet Past Week at Unknown time ??? ascorbic acid, vitamin C, 500 mg capsule Take 1 tablet by mouth. More than a month at Unknown time ??? cholecalciferol (VITAMIN D-3) 5,000 unit tablet Take 15,000 Units by mouth daily. More than a month at Unknown time ??? cholestyramine (QUESTRAN) 4 gram packet cholestyramine (with sugar) 4 gram powder for susp in apacket More than a month at Unknown time ??? clotrimazole-betamethasone (LOTRISONE) cream clotrimazole-betamethasone 1 %- 0.05 % topical cream APPLY EXTERNALLY TO ABDOMEN TWICE DAILY NEEDED More than a month at Unknown time ??? coenzyme [id number] (CO Q-10, WITH VIT E,) 100-5 mg-unit capsule More than a month at Unknown time ??? diphenoxylate-atropine (LOMOTIL) 2.5-0.025 mg per tablet Take 1 tablet by mouth 4 (four) times a day as needed for diarrhea 30 tablet 3 More than a month at Unknown time ??? fluticasone propionate (FLONASE) 50 mcg/actuation nasal spray fluticasone propionate 50 mcg/actuation nasal spray,suspension More than a month at Unknown time ??? hydrocortisone (PROCTOSOL HC) 2.5 % rectal cream Proctosol HC 2.5 % topical cream perineal applicator APPLY RECTALLY THREE TIMES A DAY More than a month at Unknown time ??? montelukast (SINGULAIR) 10 mg tablet montelukast 10 mg tablet More than a month at Unknown time Current Facility-Administered Medications: ??? acetaminophen (TYLENOL) tablet 1,000 mg, 1,000 mg, feeding tube, Q8H MAUREEN, Larua Lopes MD ??? bupivacaine preservative free in 0.9% sodium chloride 250 mL 0.1 % (1,000 mcg/mL), , epidural, Continuous, Yovany Alvarez MD ??? calcium gluconate 12,000 mg in sodium chloride 0.9% 1,000 mL (12 mg/mL) infusion, 6 mg/kg/hr, intravenous, Continuous, Laura Lopes MD ??? [Held by Provider] DULoxetine DR (CYMBALTA) extended release capsule 30 mg, 30 mg, oral, Daily,Laura Lopes MD ??? enoxaparin (LOVENOX) syringe 40 mg, 40 mg, subcutaneous, Daily-2100, Laura Lopes MD ??? gabapentin (NEURONTIN) capsule 200 mg, 200 mg, feeding tube, BID, Laura Lopes MD, 200 mg at 04/14/19 0958 ??? HYDROmorphone in 0.9% sodium chloride (DILAUDID) 20 mg/100 mL (0.2 mg/mL) infusion (premix), , intravenous, Continuous, Laura Lopes MD, 20 mg at 04/13/19 2019 ??? magnesium sulfate 2 g/50 mL in water (premix) 2 g, 2 g, intravenous, Once, Neto Moss MD ??? naloxone (NARCAN) 0.4 mg/mL injection 0.04-0.4 mg, 0.04-0.4 mg, intravenous, Q10 Min PRN, Marcelo Lopes MD ??? ondansetron (ZOFRAN) injection 4 mg, 4 mg, intravenous, Q6H PRN, Laura Lopes MD ??? prochlorperazine (COMPAZINE) injection 10 mg, 10 mg, intravenous, Q6H PRN, Laura Lopes MD ??? sodium chloride 0.9 % irrigation, , , PRN, Greyson Reeves MD, 1,000 mL at 04/13/19 1551 ??? sodium chloride 0.9% bolus 1,000 mL, 1,000 mL, intravenous, Once, Laura Lopes MD, LastRate: 500 mL/hr at 04/14/19 1314, 1,000 mL at 04/14/19 1314 ??? sodium chloride 0.9% flush 0.5-20 mL, 0.5-20 mL, intra-catheter, Q8H MAUREEN, Laura Lopes MD, 10 mL at 04/14/19 0532 ??? sodium chloride 0.9% flush 0.5-20 mL, 0.5-20 mL, intra-catheter, PRN, Laura Lopes MD ??? sodium chloride 0.9% flush 0.5-20 mL, 0.5-20 mL, intra-catheter, Q8H MAUREEN, Laura Lopes MD, 10 mL at 04/14/19 0531 ??? sodium chloride 0.9% flush 0.5-20 mL, 0.5-20 mL, intra-catheter, PRN, Laura Lopes MD ??? sodium chloride 0.9% infusion, 125 mL/hr, intravenous, Continuous, Neto Moss MD, Last Rate: 125 mL/hr at 04/14/19 1202, 125 mL/hr at 04/14/19 1202 Facility-Administered Medications Ordered in Other Encounters: ??? [START ON 04/15/2019] L-arginine 1.25%/L-lysine 1.25% infusion 1,000 mL, 1,000 [...] Use Topics ??? Alcohol use: Yes Alcohol/week: 0.6 oz Types: 1 Shots of liquor per week Review of Systems: Review of systems per HPI and otherwise all other systems are negative Objective Vitals: Arrival Vitals [04/12/19 0025] Temp 36.6 ??C (97.9 ??F) Pulse 97 Resp 18 BP 127/68 SpO2 93 % Temp src Oral Heart Rate Source Monitor Patient Position Lying BP Location Right arm FiO2 (%) 24hr Min/Max: Temp Min: 36.1 ??C (97 ??F) Max: 37.4 ??C (99.3 ??F) Pulse Min: 92 Max: 130 BP Min: 85/56 Max: 123/64 Resp Min: 10 Max: 21 SpO2 Min: 91 % Max: 100 % Most Recent : Vitals: 04/14/19 1140 BP: BP Location: Pulse: 114 Resp: 19 Temp: 36.7 ??C (98.1 ??F) TempSrc: Oral SpO2: 100% Weight: I/O last 2 completed shifts: In: 1000 [I.V.:1000] Out: 1135 [Urine:610; Drains:425; Blood:100] Physical Exam: General Appearance: Alert, cooperative, no distress HEENT: Mucus membranes moist, NG in place Neck: Supple, symmetrical Lungs: no audible wheezes or crackles, respirations unlabored Heart: Regular rate and rhythm Abdomen: new ostomy in place LLQ, red stoma Neurologic: A&Ox4. Gait not observed Psych: mood is euthymic and conversation is appropriate Lab/Radiology/Diagnostic Review: Imaging review: I have reviewed the result(s) CT body CBC: Recent Labs Lab Units 04/14/19 0917 04/14/19 0145 WBC K/cumm 5.9 6.3 HEMOGLOBIN g/dL 10.1* 12.2 HEMATOCRIT % 30.2* 37.5 MCV fL 90.7 94.7 PLATELETS K/cumm 119* 145* NEUTROS ABS K/cumm -- 5.1 CMP: Recent Labs Lab Units 04/14/19 0917 04/14/19 0145 SODIUM mmol/L 142 138 POTASSIUM PLASMA mmol/L 3.9 4.4 CO2 mmol/L 23 20* BUN SERUM mg/dL 15 11 GLUCOSE mg/dL 133 157 CREATININE mg/dL 1.19* 0.86 CALCIUM mg/dL 6.4* 6.4* CHLORIDE mmol/L 110 111* ALBUMIN g/dL -- 3.0* ANIONGAP mmol/L 9 7 PT: Recent Labs Lab Units 04/12/19 2148 PROTIME (PT) sec 11.3 PTT: Recent Labs Lab Units 04/12/19 2148 APTT sec 26.3 Radiology: CT BODY OSH CONSULT: Impression: ?? 1. Colonic obstruction with focal transition point at the level of the rectosigmoid junction. At this level there is tethering of loops of bowel. I would favor that this represents an obstruction secondary to a metastatic implant with associated desmoplastic reaction over changes from prior colitis. 2. Stable metastatic disease to the liver, undersurface of the diaphragm retroperitoneum, retroperitoneum and vaginal cuff. Assessment/Plan #metastatic neuroendocrine tumor of the ilium -07/2015 CT showed calcified enhancing mass centered in the terminal ileum with possible involvementof the proximal appendix and adjacent desmoplastic, raising suspicion for primary tumor such as carcinoid or possibly adenocarcinoma. ??It also showed bilateral ovarian enhancing solid masses suspicious for metastatic disease -10/03/2015, exploratory laparotomy, bilateral salpingo-oophorectomy, partial omentectomy, and peritoneal biopsies with Right colectomy by Dr. Jasbir Reeves. ??Biopsy revealed metastatic ileal well-differentiated neuroendocrine tumor involving the ovary and fallopian tube -initiated octreotide monthly injections on 11/07/2015 -MRI abdomen 10/21/18 with concern for liver mets -11/19/18 Gallium dotatate PET: Postsurgical changes of exploratory laparotomy and omentectomy with diffuse metastatic disease in the chest, abdomen, and pelvis, including a lesion in the proximal left humerus -PRRT cycle 1 on 12/24/18 -PRRT cycle 2 on 02/18/19 -CT 03/23: Stable metastatic disease including stable pulmonary nodules, liver lesions, capsular hepatic lesions, omental lesion, vaginal fornix lesion, and stable retroperitoneal lymphadenopathy -chromogranin A 203 on 03/30 -CT OSH on admission showed colonic obstruction and now s/p ex lap and end colostomy with Dr. eKlley 04/13. We will follow up pathology from surgery -discussed with patient and family that PRRT and Octreotide treatment scheduled for tomorrow will cancelled. From a medical oncology standpoint, we will hold off on any further treatment until she isable to recover from this hospitalization. We will arrange for follow up with Dr. Cr after discharge #hypocalcemia -calclium 11.1 on 03/30 (albumin 4.4) with known left humerus lesion. S/p Xgeva 120mg on 03/30 -today ionized calcium 3.66, Endocrinology consulted for assistance in correction. Appreciate recs -s/p Xgeva in clinic 03/30 #bowel obstruction -CT OSH on admission showed colonic obstruction and now s/p ex lap and end colostomy with Dr. Kelley 04/13. Appreciate CRS care -wound ostomy nurse to follow for education Appreciate primary team care. No further inpatient Med Onc recommendations. We will arrange for follow up at discharge. [phone] Cosigned by Eren Cr Jr., MD at 04/14/2019 3:19 PM CDT Associated attestation - Eren Cr MD - 04/14/2019 3:19 PM CDT Images from the original note were not included. PUBLICATIONS SALES REPRESENTATIVE Attestation La Chung : 1950 DATE OF VISIT: 04/14/19 I have seen and examined the patient on 04/14/2019 with the Nurse Practitioner and I have reviewed the PUBLICATIONS SALES REPRESENTATIVE note and agree with the findings documented in the note Subjective Interval History Ms. La Chung is a 68 y.o. Non- female with metastatic well differntiated neuroendocrine neoplasm admitted for bowel obstruction. Patient well known to me and noted abdominal pain and found to have dilated colon. Diverting ostomy done by Dr. Reeves and the patient is now recovering from s urgery. Denies any fever or chills. NG in place. Objective Vitals: Most Recent : BP: 92/55 Temp: 36.7 ??C (98.1 ??F) Temp src: Oral Pulse: 114 Resp: 19 SpO2: 100 % Height: 160 cm (5' 3 ) Weight: 81.6 kg (180 lb) Physical Exam: GENERAL: Age appropriate, no acute distress HEENT: sclera anicteric, mucous membranes moist, oropharynx clear, no mucositis or thrush Lymphatics: no cervical or supraclavicular adenopathy Chest: lungs are clear to auscultation bilaterally Heart: regular rate and rhythm Abdomen: soft, ostomy in place Extremities: no edema Neurologic: Alert, speech normal, no gross motor or sensory deficits noted Psychiatric: Appropriate affect Skin: warm, dry, no rashes or bruises noted Lab/Radiology/Diagnostic Review: Recent Results (from the past 24 hour(s)) CBC with auto differential Collection Time: 04/14/19 1:45 AM Result Value Ref Range WBC 6.3 3.8 - 9.9 K/cumm Hgb 12.2 11.9 - 15.5 g/dL Hct 37.5 35.6 - 45.5 % Plt 145 (L) 150 - 400 K/cumm MPV 10.5 9.1 - 12.3 fL RBC 3.96 3.90 - 5.20 M/cumm MCV 94.7 81.3 - 96.4 fL MCH 30.8 27.1 - 33.3 pg MCHC 32.5 32.3 - 35.7 g/dL RDW CV 14.2 11.1 - 14.9 % RDW SD 48.6 (H) 35.7 - 48.1 fL NRBC abs 0.00 0.00 - 0.01 K/cumm Magnesium Collection Time: 04/14/19 1:45 AM Result Value Ref Range Magnesium 1.8 1.4 - 2.5 mg/dL Phosphorus Collection Time: 04/14/19 1:45 AM Result Value Ref Range Phosphorus, pl 1.6 (L) 2.3 - 4.5 mg/dL Differential, auto Collection Time: 04/14/19 1:45 AM Result Value Ref Range Neutrophil abs 5.1 1.7 - 6.5 K/cumm Imm gran abs 0.0 0.0 - 0.1 K/cumm Lymphocyte abs 0.3 (L) 0.8 - 3.3 K/cumm Monocyte abs 0.9 (H) 0.2 - 0.8 K/cumm Eosinophil abs 0.0 0.0 - 0.5 K/cumm Basophil abs 0.0 0.0 - 0.1 K/cumm Neutrophil pct 80.6 % Imm gran pct 0.2 % Lymphocyte pct 4.3 % Monocyte pct 14.6 % Eosinophil pct 0.0 % Basophil pct 0.3 % Basic metabolic panel Collection Time: 04/14/19 1:45 AM Result Value Ref Range Sodium 138 135 - 145 mmol/L Potassium, pl 4.4 3.3 - 4.9 mmol/L Chloride 111 (H) 97 - 110 mmol/L CO2 20 (L) 22 - 32 mmol/L Anion gap 7 2 - 15 mmol/L BUN 11 8 - 25 mg/dL Creatinine 0.86 0.60 - 1.10 mg/dL Glucose 157 70 - 199 mg/dL Calcium 6.4 (Critical) 8.5 - 10.3 mg/dL Critical Result Callback Chemistry Collection Time: 04/14/19 1:45 AM Result Value Ref Range Date Notified 20190414 Time Notified 309 TestName Calcium Called/Read Back Kathy Banker Credentials RN Called By bem Albumin Collection Time: 04/14/19 1:45 AM Result Value Ref Range Albumin 3.0 (L) 3.5 - 5.0 g/dL Calcium, ionized Collection Time: 04/14/19 5:21 AM Result Value Ref Range Calcium, Ionized 3.36 (L) 4.50 - 5.10 mg/dL Troponin I Collection Time: 04/14/19 6:50 AM Result Value Ref Range Troponin I <0.03 0.00 - 0.03 ng/mL Basic metabolic panel Collection Time: 04/14/19 9:17 AM Result Value Ref Range Sodium 142 135 - 145 mmol/L Potassium, pl 3.9 3.3 - 4.9 mmol/L Chloride 110 97 - 110 mmol/L CO2 23 22 - 32 mmol/L Anion gap 9 2 - 15 mmol/L BUN 15 8 - 25 mg/dL Creatinine 1.19 (H) 0.60 - 1.10 mg/dL Glucose 133 70 - 199 mg/dL Calcium 6.4 (Critical) 8.5 - 10.3 mg/dL Calcium, ionized Collection Time: 04/14/19 9:17 AM Result Value Ref Range Calcium, Ionized 3.66 (L) 4.50 - 5.10 mg/dL CBC without differential Collection Time: 04/14/19 9:17 AM Result Value Ref Range WBC 5.9 3.8 - 9.9 K/cumm Hgb 10.1 (L) 11.9 - 15.5 g/dL Hct 30.2 (L) 35.6 - 45.5 % Plt 119 (L) 150 - 400 K/cumm MPV 11.1 9.1 - 12.3 fL RBC 3.33 (L) 3.90 - 5.20 M/cumm MCV 90.7 81.3 - 96.4 fL MCH 30.3 27.1 - 33.3 pg MCHC 33.4 32.3 - 35.7 g/dL RDW CV 14.3 11.1 - 14.9 % RDW SD 47.1 35.7 - 48.1 fL NRBC abs 0.00 0.00 - 0.01 K/cumm Magnesium Collection Time: 04/14/19 9:17 AM Result Value Ref Range Magnesium 1.6 1.4 - 2.5 mg/dL Phosphorus Collection Time: 04/14/19 9:17 AM Result Value Ref Range Phosphorus, pl 2.5 2.3 - 4.5 mg/dL Critical Result Callback Chemistry Collection Time: 04/14/19 9:17 AM Result Value Ref Range Date Notified 20190414 Time Notified 1120 TestName Calcium Called/Read Back Jane Johns Credentials RN Called By Prepare RBC: 2 Units Collection Time: 04/14/19 12:14 PM Result Value Ref Range Product code [id number] Unit Number [id number] Product Blood Type APOS Dispense Status CROSSMATCHED Product code [id number] Unit Number [id number] Product Blood Type APOS Dispense Status CROSSMATCHED Creatinine, urine, random Collection Time: 04/14/19 1:52 PM Result Value Ref Range Creatinine Ur 294.6 mg/dL Hematology Lab History Some values may be hidden. Unless noted otherwise, only the newest values recorded on each date aredisplayed. Labs - Hematology Latest Ref Range 03/02/19 03/30/19 04/12/19 04/14/19 WBC 3.8 - 9.9 K/cumm 3.1 (A) 3.7 (A) 5.0 5.9 Total Hb, POC 11.9 - 15.5 g/dL 12.8 14.3 13.6 10.1 (A) Hct 35.6 - 45.5 % 36.6 40.5 40.9 30.2 (A) Plt 150 - 400 K/cumm 118 (A) 119 (A) 130 (A) 119 (A) Neutrophil abs 1.7 - 6.5 K/cumm 2.3 2.5 5.1 Some values recorded on this date have been omitted. Some abnormal values recorded on this date have been omitted. (A) Abnormal value Comments are available for some flowsheets but are not being displayed. Chem/LFT Lab History Some values may be hidden. Unless noted otherwise, only the newest values recorded on each date aredisplayed. Labs-Chem/LFT Latest Ref Range 03/02/19 03/30/19 04/12/19 04/14/19 Sodium 135 - 145 mmol/L 146 (A) 141 139 142 Creatinine 0.60 - 1.10 mg/dL 0.83 0.93 0.83 1.19 (A) Bilirubin, total 0.1 - 1.2 mg/dL 0.5 1.0 AST 10 - 45 Units/L 25 30 ALT 7 - 45 Units/L 16 18 CrCl- Actual Body Weight (Cockcroft-Gault) 81.2 71 81.3 56.7 Some values recorded on this date have been omitted. (A) Abnormal value Tumor Marker History Some values may be hidden. Unless noted otherwise, only the newest values recorded on each date aredisplayed. Tumor Markers Latest Ref Range 12/29/18 03/02/19 03/30/19 04/14/19 Chromogranin A <93 ng/mL 203 (A) 232 (A) 203 (A) Troponin I 0.00 - 0.03 ng/mL <0.03 (A) Abnormal value Comments are available for some flowsheets but are not being displayed. Radiology: Reviewed images Assessment/Plan Ms. La Chung is a 68 y.o. Non- female with bowel obstruction, well differntiated NEN. At this point, we will jhold off on further PRRT and octreotide. Will follow with Dr. Reeves. All of her questions were answered. She understands and was in agreement with the plan of care. Eren Cr MD [employer] [facility] [employer] [facility] * Mj Chiu MD - 04/14/2019 1:47 PM CDTAssociated Order(s): CONSULT TO ENDOCRINOLOGY NON-DIABETES La Chung is a 68 y.o. female Date of : 1950 Chief Complaint: Abdominal pain, nausea/vomiting History of present illness: Mrs Chung is a 68 yo F with a PMH remarkable for HLD, HTN, and 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 Currently on peptide receptor radionuclide therapy, octreotide, now admitted due to large bowel obstruction for whom endocrinology has been consulted for management of hypocalcemia. 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 At that time, her serum calcium was 11.1 (albumin 4.4). She received 120mg SQ denosumab with plans for FU in 4 weeks. Patient was reportedly in her USOH until 04/10 when she developed acute onset abd pain, cramping in nature, in the LLQ with nausea/bilious emesis, and constipation: unable to pass significant BMs or flatus with poor po intake. At baseline, she has about 5-6 BMs per day and after receiving denosumab for hypercalcemia 2 weeks ago, reports that her stools were well formed. She otherwise denied any fevers, chills, dysphagia, odynophagia, bloody emesis, urinary symptoms. She presented to [facility] ED where a CT scan was performed and demonstrated distendedcolon, a transition point identified near the distal descending/proximal sigmoid colon, near this location a spiculated hyperenhancing mesenteric lesion identified worrisome for mesenteric met with de smoplastic reaction. An element of diverticulitis is not excluded, given that there are some adjacent diverticula. NGT was placed to suction and she was transferred to [facility] for further management. On admission to [place], patient was seen by GI with plans for a possible flex sig. At that time, her serum Ca was noted to be 8.2 (albumin not available). She was taken to the OR on 04/13 with ex lap notable for intraperitoneal adhesions, tumor deposits within the pelvis, and end colostomy. Patient developed tachycardia ON with relative hypotension, decreased UOP with a serum calcium on 04/14 to 6.4 (corrected to 7.2 for albumin 3.0) and iCal to 3.36. 2g IV calcium gluconate was given; 50mmol of sodium phosphate, with ~ 2L NS with increase in iCal to 3.66. Another 2g calcium gluconate was ordered, as was 6mg/kg/hr IV calcium gluconate. She had 1.1L documented UOP 04/13, 150cc documented so far 04/14. UA concentrated on admission with 6-10 WBC, 3+ bacteria -> UCx with clinically insignificant growth. On interview, patient denied muscle cramping, numbness/tingling, perioral numbness or fatigue. ROS notable for abdominal pain from surgical procedure currently managed with Dilaudid NETWORK MANAGER. Past medical history: Past Medical History: Diagnosis Date ??? Cancer (CMS/HCC) ??? Family history of malignant hyperthermia grandson - questionable ??? Hypercholesteremia ??? Hypertension ??? Motion sickness ??? Personal history of other diseases of the digestive system History of hemorrhoids - (Added by TW Conv) ??? PONV (postoperative nausea and vomiting) Past surgical history: Past Surgical History: Procedure Laterality Date ??? GALLBLADDER SURGERY Gallbladder Surgery - (Added by TW Conv) ? ? IR PICC LINE PLACEMENT > 5 YEARS N/A 12/23/2018 ? ? IR PICC LINE PLACEMENT > 5 YEARS N/A 02/17/2019 ? ? IA REMOVAL OF TONSILS,<12 Y/O Tonsillectomy - (Added by TW Conv) ??? IA TOTAL ABDOM HYSTERECTOMY Hysterectomy - (Added by TW Conv) Family history: Family History Problem Relation Age of Onset ??? Breast cancer Sister Adenocarcinoma of breast - (Added by TW Conv) ??? Suicidality Father Family history of suicide - (Added by TW Conv) ??? Other (old age) Mother Social history: Social History Tobacco Use ??? Smoking status: Never Smoker ??? Smokeless tobacco: Never Used Substance Use Topics ??? Alcohol use: Yes Alcohol/week: 0.6 oz Types: 1 Shots of liquor per week ??? Drug use: No Outpatient medications: Current Discharge Medication List CONTINUE these medications which have NOT CHANGED Details DULoxetine DR (CYMBALTA) 30 mg capsule daily. ergocalciferol (VITAMIN D) 50,000 unit capsule Vitamin D2 50,000 unit capsule MYRBETRIQ 50 mg tablet extended release 24 hr Take 50 mg by mouth daily Refills: 1 octreotide (SandoSTATIN) 100 mcg/mL (1 mL) syringe Inject 1 mL (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) under the skin 3 (three) times a day as needed (flushing, cramping, diarrhea) Qty: 21 Syringe, Refills: 5 olmesartan-hydrochlorothiazide (BENICAR HCT) 20-12.5 mg per tablet Take 1 tablet by mouth daily simvastatin (ZOCOR) 20 mg tablet ascorbic acid, vitamin C, 500 mg capsule Take 1 tablet by mouth. cholecalciferol (VITAMIN D-3) 5,000 unit tablet Take 15,000 Units by mouth daily. cholestyramine (QUESTRAN) 4 gram packet cholestyramine (with sugar) 4 gram powder for susp in a packet clotrimazole-betamethasone (LOTRISONE) cream clotrimazole-betamethasone 1 %-0.05 % topical cream APPLY EXTERNALLY TO ABDOMEN TWICE DAILY NEEDED coenzyme [id number] E (CO Q-10, WITH VIT E,) 100-5 mg-unit capsule diphenoxylate-atropine (LOMOTIL) 2.5-0.025 mg per tablet Take 1 tablet by mouth 4 (four) times a day as needed for diarrhea Qty: 30 tablet, Refills: 3 Associated Diagnoses: Diarrhea, unspecified type fluticasone propionate (FLONASE) 50 mcg/actuation nasal spray fluticasone propionate 50 mcg/actuation nasal spray,suspension hydrocortisone (PROCTOSOL HC) 2.5 % rectal cream Proctosol HC 2.5 % topical cream perineal applicator APPLY RECTALLY THREE TIMES A DAY montelukast (SINGULAIR) 10 mg tablet montelukast 10 mg tablet Current inpatient medications: Current Facility-Administered Medications Medication Dose Route Frequency Provider Last Rate Last Dose ??? acetaminophen (TYLENOL) tablet 1,000 mg 1,000 mg feeding tube Q8H MAUREEN Laura Lopes MD ??? bupivacaine preservative free in 0.9% sodium chloride 250 mL 0.1 % (1,000 mcg/mL) epidural Continuous Yovany Alvarez MD ??? calcium gluconate 12,000 mg in sodium chloride 0.9% 1,000 mL (12 mg/mL) infusion 6 mg/kg/hr intravenous Continuous Laura Lopes MD ??? calcium gluconate 2 g in sodium chloride 0.9% 100 mL IVPB 2 g intravenous Once Neto Moss MD 120 mL/hr at 04/14/19 1314 2 g at 04/14/19 1314 ??? [Held by Provider] DULoxetine DR (CYMBALTA) extended release capsule 30 mg 30 mg oral Daily Laura Lopes MD ??? enoxaparin (LOVENOX) syringe 40 mg 40 mg subcutaneous Daily-2100 Laura Lopes MD ??? gabapentin (NEURONTIN) capsule 200 mg 200 mg feeding tube BID Laura Lopes MD 200 mg at1 0958 ??? HYDROmorphone in 0.9% sodium chloride (DILAUDID) 20 mg/100 mL (0.2 mg/mL) infusion (premix) intravenous Continuous Laura Lopes MD 20 mg at 04/13/19 2019 ??? magnesium sulfate 2 g/50 mL in water (premix) 2 g 2 g intravenous Once Neto Moss MD ??? naloxone (NARCAN) 0.4 mg/mL injection 0.04-0.4 mg 0.04-0.4 mg intravenous Q10 Min PRN Laura Lopes MD ??? ondansetron (ZOFRAN) injection 4 mg 4 mg intravenous Q6H PRN Laura Lopes MD ??? prochlorperazine (COMPAZINE) injection 10 mg 10 mg intravenous Q6H PRN Laura Lopes MD ??? sodium chloride 0.9 % irrigation PRN Greyson Reeves MD 1,000 mL at 04/13/19 1551 ??? sodium chloride 0.9% bolus 1,000 mL 1,000 mL intravenous Once Laura Lopes MD 500 mL/hrat 04/14/19 1314 1,000 mL at 04/14/19 1314 ??? sodium chloride 0.9% flush 0.5-20 mL 0.5-20 mL intra-catheter Q8H MAUREEN Laura Lopes MD 10 mL at 04/14/19 0532 ??? sodium chloride 0.9% flush 0.5-20 mL 0.5-20 mL intra-catheter PRN Laura Lopes MD ??? sodium chloride 0.9% flush 0.5-20 mL 0.5-20 mL intra-catheter Q8H [facility] Laura Lopes MD 10 mL at 04/14/19 0531 ??? sodium chloride 0.9% flush 0.5-20 mL 0.5-20 mL intra-catheter PRN Laura Lopes MD ??? sodium chloride 0.9% infusion 125 mL/hr intravenous Continuous Neto Moss MD 125 mL/hr at 04/14/19 1202 125 mL/hr at 04/14/19 1202 Facility-Administered Medications Ordered in Other Encounters Medication Dose Route Frequency Provider Last Rate Last Dose ??? [START ON 04/15/2019] L-arginine 1.25%/L-lysine 1.25% infusion 1,000 mL 1,000 mL intravenous Continuous Meagan Amaya MD Allergies: Allergies as of 04/11/2019 - Reviewed 04/09/2019 Allergen Reaction Noted ??? Ezetimibe-simvastatin Muscle pain and Unknown 01/11/2012 ??? Ramipril Cough 12/30/2017 Review of systems: Review of systems per HPI and otherwise all other systems are negative. Physical exam: Temp: [36.1 ??C (97 ??F)-37.4 ??C (99.3 ??F)] 36.7 ??C (98.1 ??F) Pulse: [92-130] 114 Resp: [10-21] 19 BP: (85-123)/(47-89) 92/55 GENERAL: well appearing, well developed. Laying supine in bed, breathing comfortably. HENT: normocephalic, atraumatic. Moist mucous membranes. No pharyngeal exudates or erythema. Negative Cvostek's sign EYES: PERRL. EOMI. Anicteric conjunctiva. No exophthalmos. No lid lag. No lagophthalmos. NECK: thyroid normal size, non-tender, no palpable nodules CARDIOVASCULAR: Normal S1, S2. Tachycardic rate; normal rhythm. 2/6 BRANDI at RUSB; No lower extremityedema PULMONARY: symmetric chest expansion bilaterally. Lungs clear to auscultation bilaterally. No wheezes, rhonchi or crackles. ABDOMEN: soft, pink stoma at LLQ with serosanguinous output in ostomy bag; dressings c/d/i MUSCULOSKELETAL: no clubbing, cyanosis or edema. No hammertoe deformities or loss of arch on feet GENITOURINARY: deferred. SKIN: no rashes, petechiae or ecchymoses. No onycholysis of hands. Hair normal texture. Warm and moist. NEURO: alert and oriented x3. CN II-XII grossly normal. Moving all extremities spontaneously. Sensation to gross touch intact. Reflexes normal and symmetric. PSYCH: appropriate affect. Laboratory results: I/O last 3 completed shifts: In: 1000 [I.V.:1000] Out: 1885 [Urine:960; Drains:825; Blood:100] I/O this shift: In: 0 Out: 150 [Urine:100; Stool:50] Intake/Output Summary (Last 24 hours) at 04/14/2019 1616 Last data filed at 04/14/2019 1140 Gross per 24 hour Intake 1000 ml Output 1060 ml Net -60 ml No results found for: HGBA1C Lab Results Component Value Date GLUCOSE 133 04/14/2019 CALCIUM 6.4 (Critical) 04/14/2019 SODIUM 142 04/14/2019 POTASSIUM 3.9 04/14/2019 CO2 23 04/14/2019 CHLORIDE 110 04/14/2019 BUNSER 15 04/14/2019 CREATININE 1.19 (H) 04/14/2019 No results found for: CHOL, POCCHOL No results found for: HDL, POCHDL No results found for: LDLCALC, CLDL, HIRISKLDL, LDL, LDLC, LDLDIRECT, LDLMED, LDLP, POCLDL, SCRLDL,SMALLLDLP, TOTLDLC No results found for: TRIG, POCTRIG No results found for: POCCHDLR No results found for: POCNONHDL No results found for: POCCHLPL Patient Active Problem List Diagnosis ??? Neuroendocrine carcinoma (CMS/HCC) ??? 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 Neuro-endocrine carcinoma (CMS/HCC) ??? Bone metastasis (CMS/HCC) ??? Large bowel obstruction (CMS/HCC) Assessment and plan: Mrs Chung is a 68 yo F with a PMH remarkable for HLD, HTN, and 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 Currently on peptide receptor radionuclide therapy, octreotide, now admitted due to large bowel obstruction for whom endocrinology has been consulted for management of hypocalcemia. Hypocalcemia Assessment & Plan History of elevated serum Ca to 11.1, thought 2/2 metastatic bony disease. Received denosumab 03/30 120mg SQ. Ca on presentation to [facility] 8.2; following surgical procedure, Ca acutely dropped to 6.4 (7.2 corrected for albumin) with ANNE-MARIE. 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 Unclear cause of acute drop following surgery -> possibly exacerbated by decrease in GFR vs phosphorus supplementation. No blood products documented intraop. Asymptomatic by severe drop. - Continue calcium gtt as ordered; trend iCa and CMP q6 - Please order PTH, Vit D 25 hydroxy levels; ECG - May require calcitriol pending improvement on gtt +/- oral calcium supplementation when able to take PO - Denosumab induced hypocalcemia may require significant po supplementation at discharge ANNE-MARIE (acute kidney injury) (CMS/HCC) Assessment & Plan Cr elevated post surgery from bl 0.8 -> 1.17; relative oliguria - Consider bladder scan for possible obstruction, kidney ultrasound for hydronephrosis pending improvement with IVF - Fu urine lytes - Consider renal consult if failure to improve Thank you for involving us in the care of this patient. Endocrinology Consult Service will continueto follow. ??Please do not hesitate to contact us with any further questions. (Endocrine Non-Diabetes??Consult Fellow's Phone) ?? Mj Chiu MD Internal Medicine PGY-2 Cosigned by Phoenix Angelo MD at 04/14/2019 5:09 PM CDT Associated attestation - Phoenix Angelo Jr., MD - 04/14/2019 5:09 PM CDT I have seen and examined the patient on 04/14/19. I agree with the findings and plan of care as documented in the resident's/fellow's note. The patient has significant reduction in total and ionized calcium but has no symptoms directly related to it such as cramps or paresthesias. She appears to have denosumab- related hypocalcemia. At this point she has not received a continuous calcium drip and we recommend that before considering calcitriol treatment. PTH and vitamin D levels will be measured. * Alex Hutton MD - 04/12/2019 9:22 AM CDTAssociated Order(s): IP CONSULT TO GASTROENTEROLOGY Biliary Initial Consult Subjective Patient is a 68 y.o. female with chief complaint of abdominal pain. Reason for consult: Large bowel obstruction - consult for scope, possible stent placement. Requesting Provider: Dr. Cerna HPI: Ms. 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 Patient reports being in her usual state of health until David when she developed acute onset abdominal pain that she describes as intermittent cramping sensation, involving her LLQ the most, lasting ~30 secs before self abating. Associated symptoms included nausea, bilious emesis, as well as a lack of BMs and passing flatus. She states that as a result of these symptoms, she has had very poor PO intake, only eating a few crackers over the past few days. At baseline, she has about 5-6 BMs per day and after receiving denosumab for hypercalcemia 2 weeks ago, reports that her stools are well formed. She otherwise denies any fevers, chills, dysphagia, odynophagia, bloody emesis, urinary symptoms. 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 An element of diverticulitis is not excluded, given that there are some adjacent diverticula. NGT was placed to suction and the patietn was subsequently transferred to [facility] for further management. Of note, patient was seen by Oncologist last month at which point she had undergone 2 cycles of PRRT. She received a dose of denosumab for hypercaclemia and states that her BMs had become slightly firmer. CT scan 03/23 demonstrated stable metastatic disease with stable pulmonary nodules, liver lesions, omental lesion, and stable RP LAD, as well as interval colitis involving the descending colon, sigmoid colon, and rectum. Past Medical History: Diagnosis Date ??? Cancer (CMS/HCC) ??? Hypercholesteremia ??? Hypertension ??? Motion sickness [...] > 5 YEARS N/A 02/17/2019 ? ? IA REMOVAL OF TONSILS,<12 Y/O Tonsillectomy - (Added by TW Conv) ??? IA TOTAL ABDOM HYSTERECTOMY Hysterectomy - (Added by TW Conv) Medications Prior to Admission Medication Sig Dispense Refill Last Dose ??? DULoxetine DR (CYMBALTA) 30 mg capsule daily. Past Week at Unknown time ??? ergocalciferol (VITAMIN D) 50,000 unit capsule Vitamin D2 50,000 unit capsule Past Week at Unknown time ??? MYRBETRIQ 50 mg tablet extended release 24 hr Take 50 mg by mouth daily 1 Past Week at Unknown time ??? octreotide (SandoSTATIN) 100 mcg/mL (1 mL) syringe Inject 1 mL (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) under the skin 3(three) times a day as needed (flushing, cramping, diarrhea) 21 Syringe 5 04/11/2019 at Unknown time ??? olmesartan-hydrochlorothiazide (BENICAR HCT) 20-12.5 mg per tablet Take 1 tablet by mouth dailyPast Week at Unknown time ??? simvastatin (ZOCOR) 20 mg tablet Past Week at Unknown time ??? ascorbic acid, vitamin C, 500 mg capsule Take 1 tablet by mouth. More than a month at Unknown time ??? cholecalciferol (VITAMIN D-3) 5,000 unit tablet Take 15,000 Units by mouth daily. More than a month at Unknown time ??? cholestyramine (QUESTRAN) 4 gram packet cholestyramine (with sugar) 4 gram powder for susp in apacket More than a month at Unknown time ??? clotrimazole-betamethasone (LOTRISONE) cream clotrimazole-betamethasone 1 %- 0.05 % topical cream APPLY EXTERNALLY TO ABDOMEN TWICE DAILY NEEDED More than a month at Unknown time ??? coenzyme [id number] (CO Q-10, WITH VIT E,) 100-5 mg-unit capsule More than a month at Unknown time ??? diphenoxylate-atropine (LOMOTIL) 2.5-0.025 mg per tablet Take 1 tablet by mouth 4 (four) times a day as needed for diarrhea 30 tablet 3 More than a month at Unknown time ??? fluticasone propionate (FLONASE) 50 mcg/actuation nasal spray fluticasone propionate 50 mcg/actuation nasal spray,suspension More than a month at Unknown time ??? hydrocortisone (PROCTOSOL HC) 2.5 % rectal cream Proctosol HC 2.5 % topical cream perineal applicator APPLY RECTALLY THREE TIMES A DAY More than a month at Unknown time ??? montelukast (SINGULAIR) 10 mg tablet montelukast 10 mg tablet More than a month at Unknown time Allergies Allergen Reactions ??? Ezetimibe-Simvastatin Muscle pain and Unknown Muscle weakness ??? Ramipril Cough Social History Tobacco Use ??? Smoking status: Never Smoker ??? Smokeless tobacco: Never Used Substance Use Topics ??? Alcohol use: Yes Alcohol/week: 0.6 oz Types: 1 Shots of liquor per week Family History Problem Relation Age of Onset ??? Breast cancer Sister Adenocarcinoma of breast - (Added by SONIYA Conv) ??? Suicidality Father Family history of suicide - (Added by SONIYA Conv) ??? Other (old age) Mother Social History Socioeconomic History ??? Marital status: Spouse name: Not on file ??? Number of children: Not on file ??? Years of education: Not on file ??? Highest education level: Not on file Occupational History ??? Occupation: retired Social Needs ??? Financial resource strain: Not on file ??? Food insecurity: Worry: Not on file Inability: Not on file ??? Transportation needs: Medical: Not on file Non-medical: Not on file Tobacco Use ??? Smoking status: Never Smoker ??? Smokeless tobacco: Never Used Substance and Sexual Activity ??? Alcohol use: Yes Alcohol/week: 0.6 oz Types: 1 Shots of liquor per week ??? Drug use: No ??? Sexual activity: Defer Lifestyle ??? Physical activity: Days per week: Not on file Minutes per session: Not on file ??? Stress: Not on file Relationships ??? Social connections: Talks on phone: Not on file Gets together: Not on file Attends mormon service: Not on file Active member of club or organization: Not on file Attends meetings of clubs or organizations: Not on file Relationship status: Not on file ??? Intimate partner violence: Fear of current or ex partner: Not on file Emotionally abused: Not on file Physically abused: Not on file Forced sexual activity: Not on file Other Topics Concern ??? Not on file Social History Narrative : (Added by SONIYA Conv) Retired : (Added by TW Conv) Occasional alcohol use : (Added by TW Conv) Review of Systems: As outlined in HPI; all other systems negative. Vitals: 24hr Min/Max: Temp Min: 36.6 ??C (97.9 ??F) Max: 36.9 ??C (98.4 ??F) Pulse Min: 79 Max: 97 BP Min: 111/56 Max: 127/68 Resp Min: 16 Max: 18 SpO2 Min: 92 % Max: 94 % Most Recent : Vitals: 04/12/19 0720 BP: 123/67 Pulse: 79 Resp: 16 Temp: 36.8 ??C (98.2 ??F) SpO2: 94% No intake/output data recorded. I/O this shift: In: 0 Out: 100 [Drains:100] Objective Physical Exam: General: well appearing, sitting up in bed, in NAD HEENT: NC/AT, EOMI, MMM, NGT in place CV: RRR, normal S1 S2 Resp: unlabored breathing Abd: Soft, mild tenderness in LLQ without rebound or guarding Neuro: A&Ox4. No gross focal deficits. Psych: Appropriate mood/affect. Lab/Radiology/Diagnostic Review: Recent Results (from the past 24 hour(s)) CBC without differential Collection Time: 04/12/19 2:00 AM Result Value Ref Range WBC 7.0 3.8 - 9.9 K/cumm Hgb 14.3 11.9 - 15.5 g/dL Hct 42.4 35.6 - 45.5 % Plt 135 (L) 150 - 400 K/cumm MPV 10.5 9.1 - 12.3 fL RBC 4.74 3.90 - 5.20 M/cumm MCV 89.5 81.3 - 96.4 fL MCH 30.2 27.1 - 33.3 pg MCHC 33.7 32.3 - 35.7 g/dL RDW CV 13.6 11.1 - 14.9 % RDW SD 44.0 35.7 - 48.1 fL NRBC abs 0.00 0.00 - 0.01 K/cumm Basic metabolic panel Collection Time: 04/12/19 2:00 AM Result Value Ref Range Sodium 141 135 - 145 mmol/L Potassium, pl 3.1 (L) 3.3 - 4.9 mmol/L Chloride 107 97 - 110 mmol/L CO2 24 22 - 32 mmol/L Anion gap 10 2 - 15 mmol/L BUN 14 8 - 25 mg/dL Creatinine 0.77 0.60 - 1.10 mg/dL Glucose 136 70 - 199 mg/dL Calcium 8.2 (L) 8.5 - 10.3 mg/dL Magnesium Collection Time: 04/12/19 2:00 AM Result Value Ref Range Magnesium 2.0 1.4 - 2.5 mg/dL Phosphorus Collection Time: 04/12/19 2:00 AM Result Value Ref Range Phosphorus, pl 3.3 2.3 - 4.5 mg/dL Urinalysis reflex to microscopic Collection Time: 04/12/19 2:03 AM Result Value Ref Range Color, ur Yellow Yellow Clarity, ur Cloudy (A) Clear Specific gravity, ur >1.042 (H) 1.010 - 1.025 pH, urine 5 Protein, ur ql 1+ (A) Negative Glucose, ur ql Negative Negative Ketones, ur Trace Negative Bilirubin, ur Negative Negative Blood, ur Negative Negative Urobilinogen, ur <2.0 <2.0 mg/dL Nitrite, ur Negative Negative Leukocyte esterase, ur Negative Negative Urinalysis, microscopic only Collection Time: 04/12/19 2:03 AM Result Value Ref Range WBC, ur 6-10 (A) 0 - 5 /HPF RBC, ur 3-5 (A) 0 - 2 /HPF Epithelial cells, squamous, ur 1-5 0 - 5 /HPF Bacteria, ur 3+ (A) Mucous, ur Present (A) Assessment/Plan In summary, Ms. 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 reprots abdominal pain, nausea/vomiting, lack of BMs and not passing flatus since Saturday. 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 An element of diverticulitisis not excluded, given that there are some adjacent diverticula. NGT was placed to suction and the patietn was subsequently transferred to [facility] for further management. - continue NGT to suction, NPO, electrolyte repletion PRN - Will follow up imaging uploaded/nominated to [facility] - Please check coags - Will plan on flexible sigmoidoscopy tomorrow. Please administer one 500cc tap water enema this evening and two 500cc tap water enemas tomorrow morning. - The Biliary service will continue to follow. If additional questions or concerns, the Biliary service can be contacted via the central GI phone tree at [phone], option 3. From 5pm to 7:30am Saturday through Saturday, and from Saturday 5pm to Saturday 7:30am, the precision assembler GI fellow covering the Biliary service can be reached at [phone]. Alex Hutton MD Gastroenterology Fellow Cosigned by Palmer Bobby MD at 04/14/2019 8:07 AM CDT documented in this encounter Nursing Notes * Pamela Elizabeth, RN - 04/24/2019 5:11 PM CDT Wound/Ostomy Consult Note Ostomy Consult Note Date of Admission: 04/12/2019 12:52 AM Today's Date: 04/24/19 Current Hospital Day: Hospital Day: 13 Reason for Consult: post op colostomy education. Nutrition Body mass index is 31.89 kg/m??. Adult Diet Regular Adult Discharge Diet Support Surfaces Type of Bed: low air loss Type of Sitting Surface: foam Ostomy Assessment: Type of Ostomy: colostomy Stoma Shape: round viewed through pouch Stoma Location: LLQ Appliance Intact: Yes Pouch Supplies: at bedside Pouch Type: Coloplast [place] Flex 2 piece Drainage: Not to gravity Excretions: Stool Gas Excretion Color: cr yellow Comments: 04/24/19 1030 Colostomy End RLQ Placement Date/Time: 04/13/19 6385 Colostomy Type: End Location: RLQ Stomal Appliance 1 piece;Convex;Intact Stoma Assessment Red;Round;Moist;Flush (viewed through pouch) Education: Education packet reviewed: with patient including pouch chagne process supplies provided, email sent of ostomy change per patient request, icare movies texted. Plan of care discussed with: RN Questions answered: Yes Wound/Ostomy will follow patient: yes Any questions or concerns please contact the Wound/Ostomy department at [phone] Pamela Elizabeth RN * Pamela Elizabeth RN - 04/23/2019 3:41 PM CDT Wound/Ostomy Consult Note Ostomy Consult Note Date of Admission: 04/12/2019 12:52 AM Today's Date: 04/23/19 Current Hospital Day: Hospital Day: 12 Reason for Consult: post op colostomy educaiton. Nutrition Body mass index is 31.89 kg/m??. Adult Diet Regular Support Surfaces Type of Bed: foam Type of Sitting Surface: foam Ostomy Assessment: Type of Ostomy: colostomy Stoma Shape: round Stoma Location: LLQ Mucocutaneous Junction: Intact Appliance Intact: Yes Peristomal Ulcer: No Peristomal Skin Treatment: complaints of burning Barrier Wipe, Powder Pouch Supplies: at bedside coloplast [place] flex and adapt ring Pouch Type: at bedside Drainage: Not to gravity Excretions: Stool Gas Excretion Color: light brown soft Comments: 04/23/1930 Colostomy End RLQ Placement Date/Time: 04/13/191824 Colostomy Type: End Location: RLQ Stomal Appliance 2 piece (Comment size);Intact;Changed Stoma Assessment Red;Round;Flush;Moist Peristomal Assessment Intact Mucocutaneous Junction/Treatment Intact Interventions Appliance change pouch change last pouch remained in place approximately 30 hours changed to this pouch for transferto home. Education: Education packet reviewed: with patient Plan of care discussed with: RN Questions answered: Yes Wound/Ostomy will follow patient: yes Any questions or concerns please contact the Wound/Ostomy department at [phone] Pamela Elizabeth RN * Pamela Elizabeth RN - 04/20/2019 4:36 PM CDT Wound/Ostomy Consult Note Ostomy Consult Note Date of Admission: 04/12/2019 12:52 AM Today's Date: 04/20/19 Current Hospital Day: Hospital Day: 9 Reason for Consult: post op colostomy eduction. Nutrition Body mass index is 31.89 kg/m??. Adult Diet Regular Support Surfaces Type of Bed: foam Type of Sitting Surface: foam Ostomy Assessment: Type of Ostomy: colostomy Stoma Shape: oval Stoma Location: LLQ Mucocutaneous Junction: Intact Appliance Intact: No Peristomal Ulcer: Yes Peristomal Skin Treatment: Barrier Wipe, Powder Pouch Supplies: at bedside Pouch Type: mary 1 piece convex with ring and belt Drainage: Not to gravity Excretions: Stool liquid Gas Excretion Color: brown Comments: 04/20/19 1300 Colostomy End RLQ Placement Date/Time: 04/13/19 1825 Colostomy Type: End Location: RLQ Stomal Appliance 1 piece;Convex;Changed (changed x 2 again at 1600) Stoma Assessment Red;Oval;In a crease;Recessed Peristomal Assessment Denuded;Red;Painful;Maceration Mucocutaneous Junction/Treatment Intact (sutures visible) Interventions Appliance change Education: Education packet reviewed: with patient daughter spouse Plan of care discussed with: RN Questions answered: Yes Wound/Ostomy will follow patient: yes Any questions or concerns please contact the Wound/Ostomy department at [phone] Pamela Elizabeth RN * Mayela Hathaway RN - 04/19/2019 6:00 AM CDT Pt colostomy was leaking most night. Ostomy pink and moist and surrounding skin reddened and fragile. Pts blood pressure was high, prn hydralazine medication given. MD Velasco notified. Will continue tomonitor pt * Pamela Rosen RN - 04/18/2019 10:39 AM CDT Epidural was decreased to 1ml/hr per anesth. Order, Sitting up in the chair. * Pamela Elizabeth RN - 04/16/2019 3:21 PM CDT Wound/Ostomy Consult Note Ostomy Consult Note Date of Admission: 04/12/2019 12:52 AM Today's Date: 04/16/19 Current Hospital Day: Hospital Day: 5 Reason for Consult: post op colostomy education. Nutrition Body mass index is 31.89 kg/m??. NPO Diet Support Surfaces Type of Bed: foam Type of Sitting Surface: foam Ostomy Assessment: Type of Ostomy: colostomy Stoma Shape: round Stoma Location: LLQ Mucocutaneous Junction: Intact sutures visible Appliance Intact: Yes Peristomal Ulcer: No Pouch Supplies: mary 2 1/4 convex with deep mary ring Pouch Type: at bedside Drainage: To gravity Not to gravity Excretions: Stool Effluent, Gas, Bile, None Excretion Color: serous Comments: 04/16/19 1400 Colostomy End RLQ Placement Date/Time: 04/13/19 182 Colostomy Type: End Location: RLQ Stomal Appliance 2 piece (Comment size);Convex;Changed Stoma Assessment Red;Round Peristomal Assessment Intact (sutures visible) Mucocutaneous Junction/Treatment Intact Interventions Appliance change Education: Education packet reviewed: pouch changed with patient and daughter appropriate questions asked Plan of care discussed with: RN Questions answered: Yes Wound/Ostomy will follow patient: yes Any questions or concerns please contact the Wound/Ostomy department at [phone] Pamela Elizabeth RN * Pamela Elizabeth RN - 04/15/2019 3:17 PM CDT Wound/Ostomy Consult Note Ostomy Consult Note Date of Admission: 04/12/2019 12:52 AM Today's Date: 04/15/19 Current Hospital Day: Hospital Day: 4 Reason for Consult: post op colostomy education with spouse and daughter Nutrition Body mass index is 31.89 kg/m??. NPO Diet Support Surfaces Type of Bed: foam Type of Sitting Surface: foam Ostomy Assessment: Type of Ostomy: colostomy Stoma Shape: round Stoma Location: LLQ Mucocutaneous Junction: Intact Appliance Intact: Yes Peristomal Ulcer: No Pouch Supplies: at bedside Pouch Type: coloplast deep convex with adapt ring Drainage: TNot to gravity Excretions: Effluent Excretion Color: serous Comments: 04/15/19 1300 Colostomy End RLQ Placement Date/Time: 04/13/191824 Colostomy Type: End Location: RLQ Stomal Appliance 1 piece;Convex;Intact;Changed Stoma Assessment Red;Round;Moist Peristomal Assessment Intact Mucocutaneous Junction/Treatment Intact (sutures visible ) Interventions Appliance change Education: Education packet reviewed: patient spouse Plan of care discussed with: patient spouse completed pouch chagne with observation reviewed general ostomy care Questions answered: Yes Wound/Ostomy will follow patient: yes Any questions or concerns please contact the Wound/Ostomy department at [phone] Pamela Elizabeth RN * Pamela Elizabeth RN - 04/14/2019 2:21 PM CDT Wound/Ostomy Consult Note Ostomy Consult Note Date of Admission: 04/12/2019 12:52 AM Today's Date: 04/14/19 Current Hospital Day: Hospital Day: 3 Reason for Consult: post op colostomy education. Nutrition Body mass index is 31.89 kg/m??. NPO Diet Support Surfaces Type of Bed: foam Type of Sitting Surface: foam Ostomy Assessment: Type of Ostomy: colostomy Stoma Shape: round viewed through pouch Stoma Location: LLQ Appliance Intact: Yes Pouch Supplies: at bedside Pouch Type: mary 1 piece Drainage: Not to gravity Excretions: Effluent Excretion Color: serosanguineous Comments: 04/14/1930 Colostomy End RLQ Placement Date/Time: 04/13/191824 Colostomy Type: End Location: RLQ Stomal Appliance 1 piece;Intact Stoma Assessment Red (viewed through pouch) Education: Education packet reviewed: post op day 1 patient very sleepy answered spouse questions information left in room Plan of care discussed with: RN Questions answered: Yes Wound/Ostomy will follow patient: yes Any questions or concerns please contact the Wound/Ostomy department at [phone] Pamela Elizabeth RN documented in this encounter Miscellaneous Notes * Plan of Care - Yenny Villegas RN - 04/24/2019 4:07 PM CDT Referral received for SN. HH services arranged through [facility]- [place] office ([phone]). [facility] [employer] Super[employer] contact numbers; [phone] or [phone]. * Plan of Care - Nichole Nash RN - 04/24/2019 3:08 PM CDT Goals: Clinical Goals for the Shift: up ad mayela, monitor pouch, pain control, ostomy teaching Summary: Ambulating independently without ssistance. * Assessment & Plan Note - Lala Martinez MD - 04/24/2019 10:58 AM CDT Associated Problem(s): Neuroendocrine carcinoma (CMS/HCC) (HCC) Neuroendocrine tumor with bone mets. Received denosumab and found to have hypocalcemia. Would not use denosumab again given high risk for hypocalcemia. Can consider zometa if needed in the future. Plan for hypocalcemia as documented elsewhere. * Assessment & Plan Note - Lala Martinez MD - 04/24/2019 10:54 AM CDT Associated Problem(s): Hypocalcemia History of elevated serum Ca to 11.1, thought 2/2 metastatic bony disease. Received denosumab 03/30 120mg SQ. Ca on presentation to [facility] 8.2; following surgical procedure, Ca acutely dropped to 6.4 (7.2 corrected for albumin) with ANNE-MARIE. 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 Unclear cause of acute drop following surgery -> possibly exacerbated by decrease in GFR vs phosphorus supplementation. No blood products documented intraop. PTH appropriately elevated. She has had intermittently elevated iCa and has corrected calcium in the upper end of normal range.Will discontinue calcium supplementation as we anticipate that [...] a future. Would not use denosumab again. * Subjective & Objective - Lala Martinez MD - 04/24/2019 10:52 AM CDT Endocrine Inpatient Follow Up 04/24/2019 La Chung [id number] Julio César Briseno MD Admit Date: 04/12/2019 Length of Stay: 12 SUBJECTIVE: The patient is a 68 yo F with metastatic ileal neuroendocrine tumor, presenting with a large bowel obstruction s/p Ex Lap + End colostomy. Endocrine consulted for hypocalcemia. ?? Interval History: Blood sugar: Recent Labs Lab Units 04/23/19 2019 04/22/19 2159 04/21/19 2210 04/20/19 2222 04/20/19 0607 04/19/19 1814 04/19/19 0637 04/18/19 1833 04/18/19 0642 04/17/19 1851 GLUCOSE mg/dL 145 127 142 128 110 106 113 125 119 274* Review of Systems All systems were review and are negative except specified in HPI Vitals: 04/23/19 1945 04/23/19 2335 04/24/19 0448 04/24/19 0850 BP: 139/69 164/70 106/49 136/64 BP Location: Right arm Right arm Right arm Patient Position: Lying Lying Lying Pulse: 100 105 83 103 Resp: Temp: 36.9 ??C (98.4 ??F) 37.2 ??C (99 ??F) 37 ??C (98.6 ??F) 37.3 ??C (99.1 ??F) TempSrc: Oral Oral Oral SpO2: 99% 97% 97% Weight: Height: No intake/output data recorded. Physical Exam General: Alert, no acute distress HENT: mucus membranes are moist, no oral lesions, NG tube Eyes: Sclera anicteric, EOMI, no proptosis Lungs: normal effort, clear to ascultation anteriorly Heart: regular rate, normal rhythm, no murmur appreciated Abdomen: soft, non-tender, + ostomy Extremities: no lower extremity edema, warm, well perfused Neuro: grossly intact, alert and oriented x 3. No Chvostek's sign Skin: No rash LAB/IMAGING: Recent Results (from the past 24 hour(s)) Calcium, ionized Collection Time: 04/23/19 8:19 PM Result Value Ref Range Calcium, Ionized 4.92 4.50 - 5.10 mg/dL Basic metabolic panel Collection Time: 04/23/19 8:19 PM Result Value Ref Range Sodium 136 135 - 145 mmol/L Potassium, pl 3.9 3.3 - 4.9 mmol/L Chloride 100 97 - 110 mmol/L CO2 29 22 - 32 mmol/L Anion gap 7 2 - 15 mmol/L BUN 8 8 - 25 mg/dL Creatinine 0.76 0.60 - 1.10 mg/dL Glucose 145 70 - 199 mg/dL Calcium 9.4 8.5 - 10.3 mg/dL Calcium, ionized Collection Time: 04/24/19 5:42 AM Result Value Ref Range Calcium, Ionized 5.15 (H) 4.50 - 5.10 mg/dL Lab Results Component Value Date PTH 554 (H) 04/14/2019 * Plan of Care - Pamela Nails RN - 04/24/2019 12:49 AM CDT Goals: Clinical Goals for the Shift: up ad mayela, monitor pouch, pain control, ostomy teaching Summary: Patient is up ad mayela, needs encouragement to empty her own ostomy bag, but is capable and has completed this by herself. Patient's vital signs have been stable. Will continue to monitor. * Plan of Care - Bea Escobar RN - 04/23/2019 4:51 PM CDT Problem: Lack of Knowledge: Goal: Ability to develop a pain control plan will improve Outcome: Progressing Goal: Ability to identify pain intensity on a pain scale and rate it consistently will improve Outcome: Progressing Goal: Ability to notify healthcare provider of pain before it becomes unmanageable or unbearable will improve Outcome: Progressing Problem: Medication: Goal: Satisfaction with pain management regimen will improve Outcome: Progressing Problem: Safety: Goal: Will remain free from falls Outcome: Progressing Goal: Will remain free from injury from falls Outcome: Progressing Goal: Will remain free from falls and injury in home environment Outcome: Progressing Problem: Health Behavior: Goal: Understanding of discharge needs will improve Outcome: Progressing Problem: Activity: Goal: Mobility will [...] Progressing Goals: Clinical Goals for the Shift: OOB, monitor pouch, pain control, tolerate diet, ostomy teaching. Summary: Pt OOB in room, pouch is secured throughout shift, ostomy teaching completed by ostomy nurse, pt emptied ostomy independently, pain controled with oral pain medication, pt tolerates regular diet, will continue to monitor. * Medical Student - Daly Smith - 04/23/2019 4:26 PM CDT Endocrine Diabetes Inpatient Follow Up? 04/23/2019?La Chung?[id number]?Greyson Reeves MD ?? Admit Date:??04/12/2019?Length of Stay:??11 ?? SUBJECTIVE: No acute events overnight. She rested well overnight and is doing well overall. Ms. Chung is preparing for discharge tomorrow. Denies headache, chest pain, nausea, vomiting or swelling. Review of Systems: All other systems reviewed and are negative. OBJECTIVE: Vitals: 04/23/19 0430 04/23/19 0910 04/23/19 1202 04/23/19 1225 BP: 140/64 154/65 145/60 148/65 BP Location: Right arm Right arm Right arm Patient Position: Sitting Sitting Sitting Pulse: 90 98 85 81 Resp: 16 Temp: 37.5 ??C (99.5 ??F) 38 ??C (100.4 ??F) TempSrc: Oral SpO2: 98% 99% 98% 97% Weight: Height: Physical Exam?? Constitutional: She is??oriented to person, place, and time??and well-developed, well-nourished, and in no distress. Cardiovascular:??Normal rate??and regular rhythm. Exam reveals??no gallop??and no friction rub.?? No murmur??heard. Pulmonary/Chest:??Effort normal??and breath sounds normal. No??respiratory distress. She has??no wheezes. She has??no rales. Abdominal:??Soft.??Bowel sounds are normal. She exhibits??no distension. There is??tenderness.?? Tenderness to palpation around ostomy site.?? Musculoskeletal: ?General: No edema. Neurological: She is??alert??and oriented to person, place, and time. 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 Endocrine onboard for management of post-surgical hypocalcemia. Calcium has been stable, with ionized calcium of 5.06 today. ?? #ANNE-MARIE (acute kidney injury) - Normalized creatinine - Recommend continued monitoring ?? #Hypocalcemia - hx of elevated calcium to 11.1 thought 2/2 to metastatic bony disease. Patient received dose of denosumab on 03/30, 120mg SQ. On presentation, Ca was 8.2, following surgery Ca dropped to 6.4, 7.2 when corrected for albumin with ANNE-MARIE. Likely denosumab-induced hypocalcemia, with unclear etiology of drop post- surgery. Etiologies include decreased GFR in the setting of ANNE-MARIE vs. phosphorus supplementation. She did not receive blood intraoperatively, which eliminates concern for chelation. Patient hasremained asymptomatic, with an appropriately compensated PTH. Ionized calcium stable at 4.86. Recommend: - continuing??vitamin D supplementation??5,000u daily - patient will not need calcium supplementation upon discharge - recommend against scheduled repeat dose of denosumab, if hypercalcemic in the future 2/2 to bony metastases recommend Zometa q3mo ?? Cosigned by Lala Martinez MD at 04/23/2019 7:14 PM CDT * Plan of Care - Evelin Lund OT - 04/23/2019 12:33 PM CDT Problem: Dressings Lower Extremities Goal: STG - Patient to complete lower body dressing Description Min A Outcome: Completed Flowsheets (Taken 04/23/2019 1232) Assist Level: MIN Problem: Grooming Goal: STG - Patient will complete grooming Description Supervision Outcome: Completed Flowsheets (Taken 04/23/2019 1232) Assist Level: SBA Problem: Toileting Goal: STG - Patient will complete toileting tasks with Description Min A Outcome: Completed Flowsheets (Taken 04/23/2019 1232) Assist Level: SBA Problem: Transfers Goal: STG - Patient will perform toilet transfer Description Supervision Outcome: Completed Flowsheets (Taken 04/23/2019 1232) Assist Level: SBA * Plan of Care - Pamela Nails RN - 04/22/2019 10:34 PM CDT Goals: Clinical Goals for the Shift: pain control, monitor output, rest, and maintain ostomy bag Summary: Patient is up ad mayela, alert and oriented X4. Labs were drawn. Saline locked. Vital signs are stable. Will continue to monitor. * Medical Student - Daly Smith - 04/22/2019 1:07 PM CDT Endocrine Diabetes Inpatient Follow Up? 04/22/2019?La Schwarz Sheldon?[id number]? Greyson Reeves MD ?? Admit Date:??04/12/2019?Length of Stay: 10 SUBJECTIVE: No acute events overnight. She rested well overnight and is feeling good this morning. Her ostomy did not leak overnight which led to restful sleep. She has had no episodes of nausea or vomiting and continues to eat well. She denies dizziness, chest pain, palpitations, numbness or tingling or the extremities, muscle cramping or twitching, abdominal pain, or swelling. She has no other active complaints. Review of Systems: All other systems reviewed and are negative. ?? OBJECTIVE: Vitals: 04/22/19 0738 04/22/19 0930 04/22/19 1001 04/22/19 1015 BP: 147/61 143/61 147/68 156/72 BP Location: Right arm Left arm Right arm Right arm Patient Position: Lying Sitting Sitting Pulse: 85 89 98 104 Resp: 18 Temp: 37.1 ??C (98.8 ??F) TempSrc: Oral SpO2: 100% 95% 96% Weight: Height: Physical Exam Constitutional: She is oriented to person, place, and time and well-developed, well-nourished, and in no distress. Cardiovascular: Normal rate and regular rhythm. Exam reveals no gallop and no friction rub. No murmur heard. Pulmonary/Chest: Effort normal and breath sounds normal. No respiratory distress. She has no wheezes. She has no rales. Abdominal: Soft. Bowel sounds are normal. She exhibits no distension. There is tenderness. Tenderness to palpation around ostomy site. Musculoskeletal: General: No edema. Neurological: She is alert and oriented to person, place, and time. Skin: Skin is warm and dry. ?? Lab Results Component Value Date GLUCOSE 142 04/21/2019 CALCIUM 9.3 04/21/2019 SODIUM 139 04/21/2019 POTASSIUM 3.4 04/21/2019 CO2 30 04/21/2019 CHLORIDE 103 04/21/2019 BUNSER 5 (L) 04/21/2019 CREATININE 0.70 04/21/2019 Lab Results Component Value Date WBC 5.6 04/19/2019 HGB 10.0 (L) 04/19/2019 HCT 29.5 (L) 04/19/2019 MCV 88.1 04/19/2019 LABPLAT 137 (L) 04/19/2019 Ionized calcium: 5.04 ?? 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 Endocrine onboard for management of post-surgical hypocalcemia. Calcium has been stable, with ionized calcium of 5.06 today. ?? #ANNE-MARIE (acute kidney injury) - Normalized creatinine - Recommend continued monitoring ?? #Hypocalcemia - hx of elevated calcium to 11.1 thought 2/2 to metastatic bony disease. Patient received dose of denosumab on 03/30, 120mg SQ. On presentation, Ca was 8.2, following surgery Ca dropped to 6.4, 7.2 when corrected for albumin with ANNE-MARIE. Likely denosumab-induced hypocalcemia, with unclear etiology of drop post- surgery. Etiologies include decreased GFR in the setting of ANNE-MARIE vs. phosphorus supplementation. She did not receive blood intraoperatively, which eliminates concern for chelation. Patient hasremained asymptomatic, with an appropriately compensated PTH. - Ionized Ca 04/20 in the evening was 5.16, evening dose of calcium carbonate was held. Repeat ionized Ca this AM was 4.95. Patient received 1,000mg total of elemental Ca yesterday, with an ionized Ca this morning of 5.04. - continuing vitamin D supplementation 5,000u daily - continue elemental calcium to 1,000mg to maintain Ca wnl - continue to monitor iCa and CMP - recommend against scheduled repeat dose of denosumab, if hypercalcemic in the future 2/2 to bony metastases recommend Zometa q3mo Cosigned by Lala Martinez MD at 04/23/2019 7:15 PM CDT * Plan of Care - Priscilla Aguilar RN - 04/22/2019 11:47 AM CDT Report per DCAM:??experiencing pouching issues Impression:??Patient is a??68 y.o.??female??with chief complaint of abdominal pain and vomiting.?? Referrals:??[facility] to follow Support:??, Alejo and two daughters at bedside today Transportation:? ADD:??04/23/19 ?? Case Management will follow for planning and referrals as needed * Plan of Care - Shanika Dyer - 04/22/2019 10:47 AM CDT Problem: Mobility Goal: STG - Patient will ascend and descend four to six stairs Description 2 stairs without handrail with close supervision. Outcome: Adequate for Discharge Problem: Transfers Goal: STG - Patient to transfer to and from sit to supine Description Via log roll technique with close supervision. Outcome: Adequate for Discharge Problem: Mobility Goal: STG - Patient will ambulate Description 250 ft with close supervision using wheeled walker. Outcome: Completed Problem: Transfers Goal: STG - Patient will transfer sit to and from stand Description With close supervision. Outcome: Completed Cosigned by Ashley Martin DPT at 04/22/2019 1:18 PM CDT * Plan of Care - Soniya Aguirre RN - 04/22/2019 1:38 AM CDT Goals: Clinical Goals for the Shift: pain control, monitor I/O and VS Summary: Patient complained of mild pain in the abdomen this shift that was controlled with pain medication. Her vital signs were stable throughout this shift. She is voiding without difficulty and having small amounts of soft brown output in her ostomy bag. The bag placed by wound/ostomy is still intact. Patient slept comfortably throughout the night. * Plan of Care - Nichole Nash RN - 04/21/2019 1:45 PM CDT Goals: Clinical Goals for the Shift: pain control, out of bed, monitor I&Os Summary: Pt ambulating independently without difficulty. * Assessment & Plan Note - Wili Dye MD - 04/21/2019 11:39 AM CDTAssociated Problem(s): Hypocalcemia History of elevated serum Ca to 11.1, thought 2/2 metastatic bony disease. Received denosumab 03/30 120mg SQ. Ca on presentation to [facility] 8.2; following surgical procedure, Ca acutely [...] elemental calcium TID and cholecalciferol 5000 units everyday. 25 OH vitamin D: 34 Recs: - Decrease tumbs to 2500 (1000 mg elemental calcium) every day - Continue on cholecalciferol 5000 units every day while hospitalized. Upon discharge, reduce to cholecalciferol 2000 units every day - Denosumab induced hypocalcemia may require significant po supplementation at discharge; recommendagainst scheduled repeat dose. Can consider Zometa as part of the treatment for bone health in the setting bone metastasis in a future. * Subjective & Objective - Wili Dye MD - 04/21/2019 11:37 AM CDT Endocrine Diabetes Inpatient Follow Up 04/21/2019 La Chung [id number] Julio César Briseno MD Admit Date: 04/12/2019 Length of Stay: 9 SUBJECTIVE: The patient is a 68 yo F with metastatic ileal neuroendocrine tumor, presenting with a large bowel obstruction, now on POD#8 s/p Ex Lap + End colostomy. Endocrine consulted for hypocalcemia. ?? Interval History: Had on episode of vomiting overnight. Denies ausea/vomiting. Denies numbness or tingling or CP. Blood sugar: Recent Labs Lab Units 04/20/19 2222 04/20/19 0607 04/19/19 1814 04/19/19 0637 04/18/19 1833 04/18/19 0642 04/17/19 1851 04/17/19 1303 04/17/19 0943 04/17/19 0618 GLUCOSE mg/dL 128 110 106 113 125 119 274* 263* 103 237* Review of Systems All systems were review and are negative except specified in HPI Vitals: 04/20/19 2000 04/21/19 0030 04/21/19 0455 04/21/19 0757 BP: 154/59 156/66 161/65 135/76 BP Location: Right arm Right arm Patient Position: Sitting Pulse: 82 73 75 85 Resp: 18 Temp: 37 ??C (98.6 ??F) 36.7 ??C (98.1 ??F) 36.8 ??C (98.2 ??F) 37 ??C (98.6 ??F) TempSrc: Oral Oral SpO2: 94% Weight: Height: I/O this shift: In: - Out: 325 [Urine:250; Stool:75] Physical Exam General: Alert, no acute distress HENT: mucus membranes are moist, no oral lesions, NG tube Eyes: Sclera anicteric, EOMI, no proptosis Lungs: normal effort, clear to ascultation anteriorly Heart: regular rate, normal rhythm, no murmur appreciated Abdomen: soft, non-tender, + ostomy Extremities: no lower extremity edema, warm, well perfused Neuro: grossly intact, alert and oriented x 3. No Chvostek's sign Skin: No rash LAB/IMAGING: Recent Results (from the past 24 hour(s)) Calcium, ionized Collection Time: 04/20/19 5:39 PM Result Value Ref Range Calcium, Ionized 5.16 (H) 4.50 - 5.10 mg/dL Potassium, whole blood Collection Time: 04/20/19 5:39 PM Result Value Ref Range Potassium, bld 3.2 (L) 3.3 - 4.9 mmol/L Basic metabolic panel Collection Time: 04/20/19 10:22 PM Result Value Ref Range Sodium 140 135 - 145 mmol/L Potassium, pl 3.1 (L) 3.3 - 4.9 mmol/L Chloride 104 97 - 110 mmol/L CO2 28 22 - 32 mmol/L Anion gap 8 2 - 15 mmol/L BUN 6 (L) 8 - 25 mg/dL Creatinine 0.66 0.60 - 1.10 mg/dL Glucose 128 70 - 199 mg/dL Calcium 9.2 8.5 - 10.3 mg/dL Magnesium Collection Time: 04/20/19 10:22 PM Result Value Ref Range Magnesium 1.8 1.4 - 2.5 mg/dL Phosphorus Collection Time: 04/20/19 10:22 PM Result Value Ref Range Phosphorus, pl 2.6 2.3 - 4.5 mg/dL Vitamin D 25 hydroxy Collection Time: 04/20/19 10:22 PM Result Value Ref Range Vitamin D, 25-hydroxy 34 30 - 80 ng/mL Calcium, ionized Collection Time: 04/21/19 5:48 AM Result Value Ref Range Calcium, Ionized 4.95 4.50 - 5.10 mg/dL Lab Results Component Value Date PTH 554 (H) 04/14/2019 * Medical Student - Daly Smith - 04/21/2019 9:22 AM CDT Endocrine Diabetes Inpatient Follow Up ?? 04/20/2019 La Kerry Chung [id number] Julio César Briseno MD ?? Admit Date: 04/12/2019 Length of Stay: 9 SUBJECTIVE: No acute events overnight. She was not able to rest well overnight and reports feeling tired this morning. She reports having one episode of non-bloody, non- bilious vomiting after receiving oral medication in the mid-afternoon. Patient was unsure of which medication she was given at that time. She has had no further episodes of nausea or vomiting. She reports having an appetite and had output from the colostomy. She denies dizziness, chest pain, palpitations, numbness or tingling or the extremities, muscle cramping or twitching, abdominal pain, or swelling. She has no other active complaints. OBJECTIVE: Vitals: 04/21/19 0757 BP: 135/76 Pulse: 85 Resp: 18 Temp: 37 ??C (98.6 ??F) SpO2: Physical Exam Constitutional: She is oriented to person, place, and time and well-developed, well-nourished, and in no distress. Cardiovascular: Normal rate and regular rhythm. Exam reveals no gallop and no friction rub. No murmur heard. Pulmonary/Chest: Effort normal and breath sounds normal. No respiratory distress. She has no wheezes. She has no rales. Abdominal: Soft. Bowel sounds are normal. She exhibits no distension. There is tenderness. Tenderness to palpation around ostomy site. Musculoskeletal: General: No edema. Neurological: She is alert and oriented to person, place, and time. Skin: Skin is warm and dry. 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 Endocrine onboard for management of post-surgical hypocalcemia. Calcium has been stable, with ionized calcium of 4.95 today. #ANNE-MARIE (acute kidney injury) - Normalized creatinine, UOP appears low despite volume resuscitation - Recommend continued monitoring #Hypocalcemia - hx of elevated calcium to 11.1 thought 2/2 to metastatic bony disease. Patient received dose of denosumab on 03/30, 120mg SQ. On presentation, Ca was 8.2, following surgery Ca dropped to 6.4, 7.2 when corrected for albumin with ANNE-MARIE. Likely denosumab-induced hypocalcemia, with unclear etiology of drop post- surgery. Etiologies include decreased GFR in the setting of ANNE-MARIE vs. phosphorus supplementation. She did not receive blood intraoperatively, which eliminates concern for chelation. Patient hasremained asymptomatic, with an appropriately compensated PTH. - Ionized Ca 04/20 in the evening was 5.16, evening dose of calcium carbonate was held. Repeat ionized Ca this AM was 4.95. - Recommend continuing vitamin D supplementation 5,000u daily - Recommend decreasing elemental calcium to 1,000mg to maintain Ca wnl - continue to monitor iCa and CMP - recommend against scheduled repeat dose of denosumab, if hypercalcemic in the future 2/2 to bony metastases recommend Zometa q3mo Cosigned by Wili Dye MD at 04/27/2019 11:58 AM CDT * Plan of Care - Pamela Nails RN - 04/21/2019 2:26 AM CDT Goals: Clinical Goals for the Shift: pain control, out of bed, monitor I&Os Summary: Patient has been up and walking around. Alert and oriented X4. The pt has been having trouble with her ostomy bag that keeps leaking. Appliance was changed. Vital signs have been stable. Will continue to monitor. * Plan of Care - Laurence Suh RN - 04/20/2019 6:30 PM CDT Problem: Lack of Knowledge: Goal: Ability to develop a pain control plan will improve Outcome: Progressing Goal: Ability to identify pain intensity on a pain scale and rate it consistently will improve Outcome: Progressing Goal: Ability to notify healthcare provider of pain before it becomes unmanageable or unbearable will improve Outcome: Progressing Problem: Medication: Goal: Satisfaction with pain management regimen will improve Outcome: Progressing Problem: Safety: Goal: Will remain free from falls Outcome: Progressing Goal: Will remain free from injury from falls Outcome: Progressing Goal: Will remain free from falls and injury in home environment Outcome: Progressing Problem: Health Behavior: Goal: Understanding of discharge needs will improve Outcome: Progressing Problem: Activity: Goal: Mobility will [...] Clinical Goals for the Shift: pain control, out of bed, monitor I&Os Summary: Patient denies pain this shift. Patient is out of bed with one assist. She ambulated in room and halls. She is tolerating a regular diet. * Subjective & Objective - Wili Dye MD - 04/20/2019 3:04 PM CDT Endocrine Diabetes Inpatient Follow Up 04/20/2019 La Schwarz Sheldon [id number] Julio César Briseno MD Admit Date: 04/12/2019 Length of Stay: 8 SUBJECTIVE: The patient is a 68 yo F with metastatic ileal neuroendocrine tumor, presenting with a large bowel obstruction, now on POD#7 s/p Ex Lap + End colostomy. Endocrine consulted for hypocalcemia. ?? Interval History: Hypertensive overnight. Denies ausea/vomiting. Denies numbness or tingling or CP. Blood sugar: Recent Labs Lab Units 04/20/19 0607 04/19/19 1814 04/19/19 0637 04/18/19 1833 04/18/19 0642 04/17/19 1851 04/17/19 1303 04/17/19 0943 04/17/19 0618 04/17/19 0512 GLUCOSE mg/dL 110 106 113 125 119 274* 263* 103 237* 112 Review of Systems All systems were review and are negative except specified in HPI Vitals: 04/20/19 0135 04/20/19 0515 04/20/19 0715 04/20/19 1130 BP: 163/66 161/73 165/67 133/68 BP Location: Right arm Right arm Right arm Pulse: 80 84 86 87 Resp: 16 17 17 Temp: 37.2 ??C (99 ??F) 37 ??C (98.6 ??F) 36.9 ??C (98.4 ??F) TempSrc: Oral Oral Oral SpO2: 91% 94% 93% Weight: Height: I/O this shift: In: 290 [P.O.:270; I.V.:20] Out: 825 [Urine:600; Stool:225] Physical Exam General: Alert, no acute distress HENT: mucus membranes are moist, no oral lesions, NG tube Eyes: Sclera anicteric, EOMI, no proptosis Lungs: normal effort, clear to ascultation anteriorly Heart: regular rate, normal rhythm, no murmur appreciated Abdomen: soft, non-tender, + ostomy Extremities: no lower extremity edema, warm, well perfused Neuro: grossly intact, alert and oriented x 3. No Chvostek's sign Skin: No rash LAB/IMAGING: Recent Results (from the past 24 hour(s)) Calcium, ionized Collection Time: 04/19/19 6:14 PM Result Value Ref Range Calcium, Ionized 5.04 4.50 - 5.10 mg/dL Basic metabolic panel Collection Time: 04/19/19 6:14 PM Result Value Ref Range Sodium 138 135 - 145 mmol/L Potassium, pl 2.9 (L) 3.3 - 4.9 mmol/L Chloride 102 97 - 110 mmol/L CO2 28 22 - 32 mmol/L Anion gap 8 2 - 15 mmol/L BUN 4 (L) 8 - 25 mg/dL Creatinine 0.56 (L) 0.60 - 1.10 mg/dL Glucose 106 70 - 199 mg/dL Calcium 9.4 8.5 - 10.3 mg/dL Magnesium Collection Time: 04/19/19 10:10 PM Result Value Ref Range Magnesium 1.7 1.4 - 2.5 mg/dL Phosphorus Collection Time: 04/19/19 10:10 PM Result Value Ref Range Phosphorus, pl 2.4 2.3 - 4.5 mg/dL CBC without differential Collection Time: 04/19/19 10:10 PM Result Value Ref Range WBC 5.6 3.8 - 9.9 K/cumm Hgb 10.0 (L) 11.9 - 15.5 g/dL Hct 29.5 (L) 35.6 - 45.5 % Plt 137 (L) 150 - 400 K/cumm MPV 10.9 9.1 - 12.3 fL RBC 3.35 (L) 3.90 - 5.20 M/cumm MCV 88.1 81.3 - 96.4 fL MCH 29.9 27.1 - 33.3 pg MCHC 33.9 32.3 - 35.7 g/dL RDW CV 15.3 (H) 11.1 - 14.9 % RDW SD 49.1 (H) 35.7 - 48.1 fL NRBC abs 0.00 0.00 - 0.01 K/cumm Calcium, ionized Collection Time: 04/20/19 6:07 AM Result Value Ref Range Calcium, Ionized 4.93 4.50 - 5.10 mg/dL Basic metabolic panel Collection Time: 04/20/19 6:07 AM Result Value Ref Range Sodium 141 135 - 145 mmol/L Potassium, pl 3.4 3.3 - 4.9 mmol/L Chloride 105 97 - 110 mmol/L CO2 29 22 - 32 mmol/L Anion gap 7 2 - 15 mmol/L BUN 4 (L) 8 - 25 mg/dL Creatinine 0.60 0.60 - 1.10 mg/dL Glucose 110 70 - 199 mg/dL Calcium 8.9 8.5 - 10.3 mg/dL Albumin Collection Time: 04/20/19 6:07 AM Result Value Ref Range Albumin 2.9 (L) 3.5 - 5.0 g/dL Lab Results Component Value Date PTH 554 (H) 04/14/2019 * Hospital Course - Katarina Hall NP - 04/20/2019 3:04 PM CDT 68 year old female with metastatic ileal neuroendocrine tumor s/p ex lap, BSO, partial omentectomy and R colectomy (09/2015) p/w malignant obstruction (descending colon). Current NE tumor treatment peptide receptor radionuclide therapy, octreotide. 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 04/13: ativan for anxiety, IPAP consult, ostomy marking. OR- ex lap, ALEJANDRO, colostomy, mucus fistula 04/14: Med onc c/s. FeNa 0.1%. 4g Ca glu+calcium drip for hypocalcemia (from xgeva) to 6.4. Endo c/s. Multiple fluid boluses (1.5L) for low UOP. Trop <0.03. O/n: self-removed NGT, replaced. 500 cc NS bolus x2. 04/15 continue to monitor calcium, + stool, keep NGT, labs, Ca drip 4/h 04/16 dc'd masterson, NG to gravity, monitor hypocalcemia, NG tube removed 04/17: K 8.1, repeat 3.5. D/c NETWORK MANAGER. POPM, 1 unit of PRBC's for 6.9/21.0, clear liquids, EKG, dc entry operator,POPM, TUMS, Vit D 04/18: D/c epidural. Restart Lovenox. BMP Q12h. Restart statin+BP meds. SLIV. 04/19: Ditropan TID for OAB. KCl 60mEq 04/20: KCl 40mEq. Pt refusing rehab, pouching issues * Plan of Care - Priscilla Aguilar RN - 04/20/2019 1:12 PM CDT Report per DCAM:??ostomy teaching Impression:??Patient is a??68 y.o.??female??with chief complaint of abdominal pain and vomiting.?? Referrals:??[facility] to follow Support:??, Alejo and two daughters at bedside today Transportation:? ADD:??04/21/19 ?? Case Management will follow for planning and referrals as needed * Plan of Care - Pamela Nails RN - 04/20/2019 2:58 AM CDT Goals: Clinical Goals for the Shift: pain control, monitor I/O, VS, labs Summary: Patient has been resting in bed, monitoring I/Os, VSS, labs. * Plan of Care - Pamela Rosen RN - 04/19/2019 10:53 AM CDT Goals: Clinical Goals for the Shift: pain control, blood, monitor labs Summary: blood draw, output monitoring, pain control * Plan of Care - Azalea Parra RN - 04/19/2019 8:38 AM CDT Weekend Note: Discharge plan discussed with Asad. Patient is not medically ready for discharge today. Patient having leaky ostomy overnight and hypertension. Needs further monitoring prior to discharge. CM will continue to follow for discharge needs. For weekend assistance, please call the on-call weekend trimming caser at #[phone]. Thank you! * Plan of Care - Ace Hardy RN - 04/19/2019 12:21 AM CDT Problem: Lack of Knowledge: Goal: Ability to develop a pain control plan will improve Outcome: Progressing Goal: Ability to identify pain intensity on a pain scale and rate it consistently will improve Outcome: Progressing Goal: Ability to notify healthcare provider of pain before it becomes unmanageable or unbearable will improve Outcome: Progressing Problem: Medication: Goal: Satisfaction with pain management regimen will improve Outcome: Progressing Problem: Safety: Goal: Will remain free from falls Outcome: Progressing Goal: Will remain free from injury from falls Outcome: Progressing Goal: Will remain free from falls and injury in home environment Outcome: Progressing Problem: Health Behavior: Goal: Understanding of discharge needs will improve Outcome: Progressing Problem: Activity: Goal: Mobility will [...] Clinical Goals for the Shift: pain control, blood, monitor labs Summary: patient progressing toward goals, will monitor close for changes. * Plan of Care - Jose F Cruz RN - 04/18/2019 11:19 AM CDT No orders for discharge at this time. Plan is to remove epidural catheter after decreasing rate andmonitor patient for pain. Case management will continue to follow. * Plan of Care - Pamela Rosen RN - 04/18/2019 9:18 AM CDT Goals: Clinical Goals for the Shift: pain control, blood, monitor labs Summary:pain control, I/O * Plan of Care - Joy Perkins RN - 04/18/2019 4:43 AM CDT Problem: Lack of Knowledge: Goal: Ability to develop a pain control plan will improve Outcome: Progressing Goal: Ability to identify pain intensity on a pain scale and rate it consistently will improve Outcome: Progressing Goal: Ability to notify healthcare provider of pain before it becomes unmanageable or unbearable will improve Outcome: Progressing Problem: Medication: Goal: Satisfaction with pain management regimen will improve Outcome: Progressing Problem: Safety: Goal: Will remain free from falls Outcome: Progressing Goal: Will remain free from injury from falls Outcome: Progressing Goal: Will remain free from falls and injury in home environment Outcome: Progressing Problem: Health Behavior: Goal: Understanding of discharge needs will improve Outcome: Progressing Problem: Activity: Goal: Mobility will [...] has been well controlled throughout the shift. Labs were drawn. Ostomy bag was changed. She is able toexpress needs. Will continue to monitor. * Plan of Care - Penelope Cormier RN - 04/17/2019 9:23 PM CDT Problem: Lack of Knowledge: Goal: Ability to develop a pain control plan will improve Outcome: Progressing Goal: Ability to identify pain intensity on a pain scale and rate it consistently will improve Outcome: Progressing Goal: Ability to notify healthcare provider of pain before it becomes unmanageable or unbearable will improve Outcome: Progressing Problem: Medication: Goal: Satisfaction with pain management regimen will improve Outcome: Progressing Problem: Safety: Goal: Will remain free from falls Outcome: Progressing Goal: Will remain free from injury from falls Outcome: Progressing Goal: Will remain free from falls and injury in home environment Outcome: Progressing Problem: Health Behavior: Goal: Understanding of discharge needs will improve Outcome: Progressing Problem: Activity: Goal: Mobility will [...] Clinical Goals for the Shift: pain control, blood, monitor labs Summary: Patient reports pain control with the use of her NETWORK MANAGER. Patient will get labs draws regularly. * Provider Query - Jessica Salazar - 04/17/2019 7:33 PM CDT Images from the original note were not included. Clinical Indicators/Treatments: - Monitor CBC Please specify an appropriate diagnosis, if significant, that supports the lab findings and document in the medical record and on the form below. Indicate Present on Admission Status. ___Thrombocytopenia ___Abnormal laboratory findings, inconclusive diagnosis ___Clinically insignificant abnormal laboratory findings ___Other, specify below ___Clinically unable to determine Provider Response: thrombocytopenia Use of terms such as likely, suspected, possible, or probable (associated with a specific diagnosisthat is being evaluated, monitored, or treated as if it exists) are acceptable and can be coded in the inpatient setting when documented at the time of discharge. This documentation will become part of the patient???s medical record. Thank you, Bette Salazar RN, BSN, MS, CCDS Clinical Sole Filler [phone] * Plan of Care - Priscilla Aguilar RN - 04/17/2019 12:50 PM CDT Report per DCAM:??electrolyte replacement, unit transfused, EKG, AM labs Impression: Patient is a??68 y.o.??female??with chief complaint of abdominal pain and vomiting.?? Referrals:??[facility] to follow Support:??, Alejo and two daughters at bedside today Transportation: ?? ADD:??04/19/19 ?? Case Management will follow for planning and referrals as needed * Plan of Care - Shanika Dyer - 04/17/2019 8:41 AM CDT Problem: Mobility Goal: STG - Patient will ambulate Description 250 ft with close supervision using wheeled walker. Outcome: Progressing Problem: Transfers Goal: STG - Patient to transfer to and from sit to supine Description Via log roll technique with close supervision. Outcome: Progressing Goal: STG - Patient will transfer sit to and from stand Description With close supervision. Outcome: Progressing Cosigned by Ashley Martin DPT at 04/17/2019 11:35 AM CDT * Assessment & Plan Note - Mj Chiu MD - 04/17/2019 8:02 AM CDT Associated Problem(s): Stage 3b chronic kidney disease (HCC) Now appears resolved with normalized creatinine; however UOP appears low despite aggressive volume resuscitation. - Recommend continued monitoring * Assessment & Plan Note - Mj Chiu MD - 04/17/2019 7:57 AM CDT Associated Problem(s): Hypocalcemia History of elevated serum Ca to 11.1, thought 2/2 metastatic bony disease. Received denosumab 03/30 120mg SQ. Ca on presentation to [facility] 8.2; following surgical procedure, Ca acutely [...] may require significant po supplementation at discharge; recommendagainst scheduled repeat dose * Plan of Care - Pamela Nails RN - 04/17/2019 1:37 AM CDT Goals: Clinical Goals for the Shift: Pain control, ambulate 4 times, advance diet Summary: Patient's pain is being adequately controlled. Patient has a NETWORK MANAGER and epidural. Patient is up ad mayela and has walked the halls several times. Patient has reported a non-productive cough that is keeping her awake. * Plan of Care - Minerva Garcia RN - 04/16/2019 11:38 AM CDT Problem: Lack of Knowledge: Goal: Ability to develop a pain control plan will improve Outcome: Progressing Goal: Ability to identify pain intensity on a pain scale and rate it consistently will improve Outcome: Progressing Goal: Ability to notify healthcare provider of pain before it becomes unmanageable or unbearable will improve Outcome: Progressing Problem: Medication: Goal: Satisfaction with pain management regimen will improve Outcome: Progressing Problem: Safety: Goal: Will remain free from falls Outcome: Progressing Goal: Will remain free from injury from falls Outcome: Progressing Goal: Will remain free from falls and injury in home environment Outcome: Progressing Problem: Health Behavior: Goal: Understanding of discharge needs will improve Outcome: Progressing Goals: Clinical Goals for the Shift: Pain control, ambulate 4 times, advance diet Summary: Patient educated on NETWORK MANAGER and button pushing. She has ambulated in the walters x1 this morning.NGT placed to gravity drainage. Will continue to monitor. * Subjective & Objective - Bettie Pat MD - 04/16/2019 11:18 AM CDT Consulting Team: general surgery REASON FOR CONSULTATION:Hypocalcemia Subjective HPI/Interval History: Calcium stable yesterday afternoon and calcium drip stopped. Ionized calcium has remained stable. Patient feels well today. Denies any nausea. No distal or perioral paresthesias. Objective Vitals: 24hr Min/Max: Temp Min: 36.5 ??C (97.7 ??F) Max: 37 ??C (98.6 ??F) Pulse Min: 80 Max: 106 BP Min: 116/75 Max: 154/67 Resp Min: 17 Max: 26 SpO2 Min: 90 % Max: 96 % Most Recent : Vitals: 04/16/19 0837 BP: 154/67 Pulse: 96 Resp: 26 Temp: 36.9 ??C (98.4 ??F) SpO2: 95% I/O last 2 completed shifts: In: 420 [NG/GT:420] Out: 525 [Urine:250; Drains:100; Stool:175] I/O this shift: In: 247.9 [I.V.:247.9] Out: 0 Physical Exam: General: Alert, no acute distress,laying in bed, HENT: mucus membranes are moist, no oral lesions, NG tube Eyes: Sclera anicteric, EOMI, no proptosis Lungs: normal effort, clear to ascultation anteriorly Heart: regular rate, normal rhythm, no murmur appreciated Abdomen: soft, non-tender, + ostomy Extremities: no lower extremity edema, warm, well perfused Neuro: grossly intact, alert and oriented x 3 Skin: No rash Lab/Radiology/Diagnostic Review: Lab Results Component Value Date PTH 554 (H) 04/14/2019 CALCIUM 8.2 (L) 04/16/2019 CAION 4.62 04/16/2019 PHOS 2.3 04/15/2019 Lab Results Component Value Date GLUCOSE 81 04/16/2019 CALCIUM 8.2 (L) 04/16/2019 SODIUM 140 04/16/2019 POTASSIUM 3.5 04/16/2019 CO2 21 (L) 04/16/2019 CHLORIDE 113 (H) 04/16/2019 BUNSER 12 04/16/2019 CREATININE 0.68 04/16/2019 Assessment/Plan Principal Problem: Large bowel obstruction (CMS/HCC) Active Problems: Neuroendocrine carcinoma (CMS/HCC) Hypocalcemia ANNE-MARIE (acute kidney injury) (CMS/HCC) * Plan of Care - Jessica Rice LCSW - 04/16/2019 9:50 AM CDT SW informed patient will be discharged home at discharge. SW will continue to follow. Jessica Rice LCSW [phone] * Plan of Care - Kathy Zuleta RN - 04/16/2019 3:11 AM CDT Problem: Lack of Knowledge: Goal: Ability to develop a pain control plan will improve Outcome: Progressing Goal: Ability to identify pain intensity on a pain scale and rate it consistently will improve Outcome: Progressing Goal: Ability to notify healthcare provider of pain before it becomes unmanageable or unbearable will improve Outcome: Progressing Problem: Medication: Goal: Satisfaction with pain management regimen will improve Outcome: Progressing Problem: Safety: Goal: Will remain free from falls Outcome: Progressing Goal: Will remain free from injury from falls Outcome: Progressing Goal: Will remain free from falls and injury in home environment Outcome: Progressing Problem: Health Behavior: Goal: Understanding of discharge needs will improve Outcome: Progressing Goals: Clinical Goals for the Shift: monitor I&O, VSS, pain control Summary: VSS, 2L 02 for desatting into 80's while sleeping, pain controlled with NETWORK MANAGER and epidural, green output from NG tube, masterson intact, will continue to monitor. * Plan of Care - Shanika Dyer - 04/15/2019 3:31 PM CDT Problem: Transfers Goal: STG - Patient to transfer to and from sit to supine Description Via log roll technique with close supervision. Outcome: Progressing Cosigned by Ashley Martin DPT at 04/15/2019 3:31 PM CDT * Plan of Care - Priscilla Aguilar RN - 04/15/2019 1:08 PM CDT Report per DCAM: NG tube in place, following up on Ca Impression: Patient is a??68 y.o.??female??with chief complaint of abdominal pain and vomiting. Referrals: referral sent through [facility] to [facility] Support: , Alejo and two daughters at bedside today Transportation: ADD: 04/18/19 Case Management will follow for planning and referrals as needed * Plan of Care - Nica Smith RN - 04/15/2019 3:54 AM CDT Problem: Lack of Knowledge: Goal: Ability to develop a pain control plan will improve Outcome: Progressing Goal: Ability to identify pain intensity on a pain scale and rate it consistently will improve Outcome: Progressing Goal: Ability to notify healthcare provider of pain before it becomes unmanageable or unbearable will improve Outcome: Progressing Problem: Medication: Goal: Satisfaction with pain management regimen will improve Outcome: Progressing Problem: Safety: Goal: Will remain free from falls Outcome: Progressing Goal: Will remain free from injury from falls Outcome: Progressing Goal: Will remain free from falls and injury in home environment Outcome: Progressing Problem: Health Behavior: Goal: Understanding of discharge needs will improve Outcome: Progressing Goals: Clinical Goals for the Shift: (monitor I&O, VSS, pain control, ambulation) Summary: Patient's vital signs have been stable and her pain has been controlled with the NETWORK MANAGER pump.The patient ambulated in the room and tolerated it somewhat well. It was her first time getting outof bed so she was unsteady. I&Os have been monitored. The patient has had a low urine output (25mL/hr) all night but it is beginning to increase. The patient has also had brown out of her NG sucti on. The patient pulled her NG tube out at 0345 and per MD orders I put it back in. * Assessment & Plan Note - Mj Chiu MD - 04/14/2019 4:23 PM CDT Associated Problem(s): Stage 3b chronic kidney disease (HCC) Now appears resolved. * Assessment & Plan Note - Mj Chiu MD - 04/14/2019 4:18 PM CDT Associated Problem(s): Hypocalcemia History of elevated serum Ca to 11.1, thought 2/2 metastatic bony disease. Received denosumab 03/30 120mg SQ. Ca on presentation to [facility] 8.2; following surgical procedure, Ca acutely [...] may require significant po supplementation at discharge; recommendagainst scheduled repeat dose * Plan of Care - Jane Johns RN - 04/14/2019 3:49 PM CDT Goals: Clinical Goals for the Shift: Monitor I&Os, VS, telemetry, pain control, ambulation Summary: Pt A&O x 4. VSS. Pt up to chair this shift. Pt masterson intact, urine output low. 1000ml NS bolus given. Pt calcium remains critically low. Pt given more calcium and started on a drip. Labsto be drawn every 6 hours. NG intact and to LIS. Pt needs met. Will continue to monitor for clinical changes this shift. * Plan of Care - Deisy Yousif OT - 04/14/2019 1:02 PM CDT Problem: OT Misc Goal: STG - Misc 1 Description Pt will verbalize understanding and demonstrate abdominal protective strategies to promote independence and safety with ADLs, with min cues by d/c. Outcome: Progressing * Plan of Care - Kathy Zuleta RN - 04/14/2019 3:39 AM CDT Problem: Lack of Knowledge: Goal: Ability to develop a pain control plan will improve Outcome: Progressing Goal: Ability to identify pain intensity on a pain scale and rate it consistently will improve Outcome: Progressing Goal: Ability to notify healthcare provider of pain before it becomes unmanageable or unbearable will improve Outcome: Progressing Problem: Medication: Goal: Satisfaction with pain management regimen will improve Outcome: Progressing Problem: Safety: Goal: Will remain free from falls Outcome: Progressing Goal: Will remain free from injury from falls Outcome: Progressing Goal: Will remain free from falls and injury in home environment Outcome: Progressing Problem: Health Behavior: Goal: Understanding of discharge needs will improve Outcome: Progressing Goals: Clinical Goals for the Shift: pain control, post-op vitals, monitor I&O Summary: Patient tachycardic-doctor Carmen notified, fluid bolus ordered, supplemental calcium and sodium ordered, masterson draining dark and low amounts of urine, OOB with moderate assistance, NG intact with green output, NETWORK MANAGER and epidural for pain, drainage shadowing from surgical incision-dressing still intact, will continue to monitor. * Op Note - Greyson Reeves MD - 04/13/2019 4:46 PM CDT SURGEON Greyson Reeves MD FIRST REPOSSESSION AGENT Laura Walker PREOPERATIVE DIAGNOSIS Large bowel obstruction POSTOPERATIVE DIAGNOSIS Same PROCEDURE Exploratory laparotomy with creation of divided loop colostomy ANESTHESIA General per endotracheal tube. INDICATIONS FOR PROCEDURE Patient is a 68 y.o. 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 She has developed recurrent and intraperitoneal disease. She then has had increasing symptoms of constipation and presented with a large bowel obstruction. Therefore she was brought to the operating room for exploratory laparotomy and creation of of a colostomy. OPERATIVE FINDINGS This was a much more complicated case than usual. She had tensions for loop adhesions. 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 OPERATIVE PROCEDURE With informed consent, patient was brought to the operating room, placed in the supine position. They were was 1 g of IV ertapenem and this covered the perioperative antibiotics. Pneumatic compression stockings were placed on the lower extremities bilaterally. General anesthesia was then induced. The endotracheal tube was placed and secured and a Masterson catheter was inserted. The patient was placed in the modified lithotomy position with the use of Yellofin stirrups and the abdomen was then prepped and draped in the usual sterile fashion. We entered the abdomen through her previous midline incision. There were dense adhesions of her omentum to her anterior abdominal wall. These were taken down with a combination of sharp and blunt dissection. We then were able to mobilize the omentum off of the small bowel. We began lysing interloop adhesions however became apparent that there was tumor nodule down in the left lower quadrant where there was several loops of small intestine adherent to this. Therefore given the acute nature of the process we mobilized the small bowel off of the left colon mesentery. The Bookwalter retractor was then assembled we began mobilization of the left colon. We incised the lateral attachmentsbreaking into the retroperitoneal plane we did this down towards the sigmoid colon as best as we could until we ran into the tumor causing the obstruction. We then mobilized the splenic flexure as wedivided the lateral attachments heading up toward the splenic flexure entering the lesser sac by sep arating the omentum from the transverse colon. We then completely mobilized the splenic flexure andmedialized the descending colon. We felt we had adequate mobilization at this time therefore we meet created the stoma aperture in the left lower quadrant. The incision the fascial incision was then made in a vertical fashion and given the size and the dilation of the colon we extended this adequately to bring the colon up through the stoma. However this was difficult given the restricted nature of its mesentery and the dilation of the colon. We then made an enterotomy on the anti mesenteric corner of the colon to try to decompress this. This helped to some degree. We were then able to bring u p the stoma through the stoma aperture securing it to the skin by passing a Elissa clamp under the mesenteric border. We then closed the midline incision with a 1. Looped PDS suture in a running continuous fashion we used 2 sutures 1 send the inferior aspect of the wound once on the superior aspect of the wound there running continuous fashion tied in the middle. Wounds irrigated with normal saline and the skin was then closed with mary. We then stapled and divided the bowel with a firing of an 80 mm JED stapler. The distal limb was then returned to the abdomen except for the anti mesenteric corner which was then excised and matured to the skin as a mucous fistula with interrupted 3 0 Vicryl sutures. We then mobilized the proximal colon off of its mesentery to bring it up as a much as an end colostomy as possible. This was then divided with electrocautery and was then matured in a simple fashion with interrupted 3 0 Vicryl sutures. This then concluded the case patient tolerated the procedure well was then extubated taken to postanesthesia recovery in stable condition sponge instrument needle counts were correct. Total IV fluids: See anesthesia note Estimated blood loss: 300 cc SPECIMEN None Of note, I, Dr. Reeves, was present for my entire portion of the case. Greyson Reeves M.D. * Brief Op Note - Laura Lopes MD - 04/13/2019 4:46 PM CDT Operative Progress Note Surgical Team: Surgeon(s) and Role: * Greyson Reeves MD - Primary * Bang Maloney MD - Assisting * Laura Lopes MD - Assisting Anesthesiologist: Shawn Green MD; Thong Abraham MD TOUR DRIVER: Dm Richardson CRNA; Janeen Weston CRNA Malware Analyst: Adelita Barba RN; Thais Julio RN; Susana Benito RN Malware Analyst Relief: Bebe Claire RN Scrub Relief: Lucita Chase RN Scrub: ST Elena; Re Sanchez RN DATE OF SURGERY : 04/13/2019 Preoperative Diagnosis: Pre-op Diagnosis * Large bowel obstruction (CMS/HCC) [K56.609] Postoperative Diagnosis: Post-op Diagnosis * Large bowel obstruction (CMS/HCC) [K56.609] Procedure(s): Procedure(s) (LRB): EXPLORATORY LAPAROTOMY (N/A) COLOSTOMY (N/A) Operative Findings: Intraperitoneal adhesions, tumor deposits within pelvis Estimated Blood Loss: 300 mL Intraoperative Fluids: 2500 mls Specimens: No specimen collected in procedure Implants: Nothing was implanted during the procedure Blood/Blood Products Transfused: 0 mls Complications: None Condition on Discharge from the operating room was stable Laura Lopes MD Date: 04/13/2019 Time: 6:36 PM Cosigned by Greyson Reeves MD at 04/13/2019 7:26 PM CDT * Op Note - Luis M Bright MD - 04/13/2019 1:20 PM CDT OPERATIVE NOTE: Name: La Chung : 1950 Date of Thoracic Epidural Placement: 04/13/2019 Attending Anesthesiologist: Aleksandra Gonzalez M.D. Fellow: Luis M Bright MD Procedure: Thoracic Epidural Catheter Placement. Indication: Acute Postoperative Pain and Abdominal Pain After Surgery surgeon requested Informed Consent: After reviewing the procedure with the patient, informed consent to proceed with the injection was obtained. A procedural permit was also signed. Time-Out, Safety Check: A time-out was undertaken, with patient participation as possible, to verify correct name, date of , allergies, anticoagulation therapies, informed consent form completion, and correct procedure. Description of Procedure: The patient was placed in the sitting position, and physical examination/palpation was used to identify an appropriate needle entry point to access the thoracic spinal canalfrom a paramedian approach at T9-10. The thoracic back area was prepped with chlorhexidine solution and draped with sterile drape (prep and drape materials from the epidural kit). Sterile technique was used throughout. At the needle entry point, the skin and subcutaneous tissues were infiltrated with 1% lidocaine. An 18-gauge Tuohy nee dle was advanced to the epidural space, using the loss of resistance technique. No paresthesias were encountered during needle placement. With the needle in the epidural space, aspiration was negative for blood or other fluid. The epidural space was identified at a depth of 5 cm from the skin. The epidural catheter was threaded through the needle, which was then removed, leaving the catheter adriane ng of 10 cm at the skin. Aspiration of the catheter was carried out and this was negative for blood or other fluid. An anti-microbial filter (0.2 micon) was attached to the catheter and left in place. A test dose of lidocaine 1.5% with 1:200,000 epinephrine x 3 ml was injected through the catheter and there were no signs or symptoms of rapid local anesthetic or epinephrine absorption. The catheter was secured to the thoracic back area with a sterile dressing of sterile tapes and plastic adhesive dressings, and the patient was returned to the supine position. The procedure was well tolerated and there were no apparent complications. Operative Findings: Epidural catheter successfully placed Estimated Blood Loss: None Intraoperative Fluids: None Specimens: None Complications: None Disposition: The patient was discharged to OR for planned surgical procedure in stable condition. Epidural catheter Perifix with product code [id number] ref [id number] is MRI compatible Luis M Bright MD 04/13/2019 1:23 PM Cosigned by Aleksandra Gonzalez MD at 04/13/2019 2:27 PM CDT Associated attestation - Aleksandra Gonzaelz MD - 04/13/2019 2:27 PM CDT I was present for the entire procedure. * Perioperative Nursing Note - Babs Butts RN - 04/13/2019 12:43 PM CDT Ostomy jason noted on abd. * Plan of Care - Evelin Us RN - 04/13/2019 8:33 AM CDT Problem: Lack of Knowledge: Goal: Ability to develop a pain control plan will improve Outcome: Progressing Goal: Ability to identify pain intensity on a pain scale and rate it consistently will improve Outcome: Progressing Goal: Ability to notify healthcare provider of pain before it becomes unmanageable or unbearable will improve Outcome: Progressing Problem: Medication: Goal: Satisfaction with pain management regimen will improve Outcome: Progressing Problem: Safety: Goal: Will remain free from falls Outcome: Progressing Goal: Will remain free from injury from falls Outcome: Progressing Goal: Will remain free from falls and injury in home environment Outcome: Progressing Problem: Health Behavior: Goal: Understanding of discharge needs will improve Outcome: Progressing Goals: Clinical Goals for the Shift: pain control; comfort Summary: Pain is being controlled by IV pain medication at this time. Patient received IV ativan for anxiety. Patient reports no feelings of relief. MD notified. Patient is alert and oriented and calls out for assistance appropriately. Patient is up ad mayela and ambulates independently. Relaxation mike hniques encouraged. Will continue to monitor. * Plan of Care - Neto Engle RN - 04/13/2019 3:30 AM CDT Goals: Clinical Goals for the Shift: pain control, monitor output, enema, labs, rest Summary: Minimal complaints of pain for shift, well controlled with PRN medication. Adequate urine output and one small bowel movement after tap water enema was given. Labs drawn per orders; phosphorus level was low, replacement fluids given per orders. Rested fairly well through the night. Problem: Lack of Knowledge: Goal: Ability to develop a pain control plan will improve Outcome: Progressing Goal: Ability to identify pain intensity on a pain scale and rate it consistently will improve Outcome: Progressing Goal: Ability to notify healthcare provider of pain before it becomes unmanageable or unbearable will improve Outcome: Progressing Problem: Medication: Goal: Satisfaction with pain management regimen will improve Outcome: Progressing Problem: Safety: Goal: Will remain free from falls Outcome: Progressing Goal: Will remain free from injury from falls Outcome: Progressing Goal: Will remain free from falls and injury in home environment Outcome: Progressing Problem: Health Behavior: Goal: Understanding of discharge needs will improve Outcome: Progressing * Tova of Far[facility] - Dolly Ventura RN - 04/12/2019 10:37 AM CDT Goals: Clinical Goals for the Shift: pain control, monitor output, rest Summary: Problem: Lack of Knowledge: Goal: Ability to develop a pain control plan will improve Outcome: Progressing Problem: Lack of Knowledge: Goal: Ability to identify pain intensity on a pain scale and rate it consistently will improve Outcome: Progressing Problem: Safety: Goal: Will remain free from injury from falls Outcome: Progressing * Plan of Faraz - Neto Engle RN - 04/12/2019 3:39 AM CDT Goals: Clinical Goals for the Shift: pain control, monitor output, rest Summary: Minimal complaints of pain, well controlled with PRN medications. Urine output has been unmeasurable for the shift and the patient has not had a bowel movement. Rested well through the night. Problem: Lack of Knowledge: Goal: Ability to develop a pain control plan will improve Outcome: Progressing Goal: Ability to identify pain intensity on a pain scale and rate it consistently will improve Outcome: Progressing Goal: Ability to notify healthcare provider of pain before it becomes unmanageable or unbearable will improve Outcome: Progressing Problem: Medication: Goal: Satisfaction with pain management regimen will improve Outcome: Progressing Problem: Safety: Goal: Will remain free from falls Outcome: Progressing Goal: Will remain free from injury from falls Outcome: Progressing Goal: Will remain free from falls and injury in home environment Outcome: Progressing Problem: Health Behavior: Goal: Understanding of discharge needs will improve Outcome: Progressing documented in this encounter Plan of Treatment Not on file documented as of this encounter Procedures Procedure Name Priority Date/Time Associated Diagnosis Comments CALCIUM, IONIZED Timed 04/24/2019 5:42 AM CDT CALCIUM, IONIZED Timed 04/23/2019 8:19 PM CDT BASIC METABOLIC PANEL Routine 04/23/2019 8:19 PM CDT CALCIUM, IONIZED Timed 04/23/2019 5:52 AM CDT BASIC METABOLIC PANEL Routine 04/22/2019 9:59 PM CDT CALCIUM, IONIZED Timed 04/22/2019 6:27 PM CDT CALCIUM, IONIZED Timed 04/22/2019 5:56 AM CDT BASIC METABOLIC PANEL Routine 04/21/2019 10:10 PM CDT CALCIUM, IONIZED Timed 04/21/2019 6:18 PM CDT CALCIUM, IONIZED Timed 04/21/2019 5:48 AM CDT VITAMIN D 25 HYDROXY Timed 04/20/2019 10:22 PM CDT PHOSPHORUS Timed 04/20/2019 10:22 PM CDT MAGNESIUM Timed 04/20/2019 10:22 PM CDT BASIC METABOLIC PANEL Routine 04/20/2019 10:22 PM CDT POTASSIUM, WHOLE BLOOD Timed 04/20/2019 5:39 PM CDT CALCIUM, IONIZED Timed 04/20/2019 5:39 PM CDT CALCIUM, IONIZED Timed 04/20/2019 6:07 AM CDT ALBUMIN Timed 04/20/2019 6:07 AM CDT BASIC METABOLIC PANEL Timed 04/20/2019 6:07 AM CDT CBC WITHOUT DIFFERENTIAL Timed 04/19/2019 10:10 PM CDT PHOSPHORUS Timed 04/19/2019 10:10 PM CDT MAGNESIUM Timed 04/19/2019 10:10 PM CDT CALCIUM, IONIZED Timed 04/19/2019 6:14 PM CDT BASIC METABOLIC PANEL Timed 04/19/2019 6:14 PM CDT CALCIUM, IONIZED Timed 04/19/2019 6:37 AM CDT BASIC METABOLIC PANEL Timed 04/19/2019 6:37 AM CDT CBC WITHOUT DIFFERENTIAL Timed 04/18/2019 9:43 PM CDT PHOSPHORUS Timed 04/18/2019 9:43 PM CDT MAGNESIUM Timed 04/18/2019 9:43 PM CDT CALCIUM, IONIZED Timed 04/18/2019 6:33 PM CDT BASIC METABOLIC PANEL Timed 04/18/2019 6:33 PM CDT CALCIUM, IONIZED Timed 04/18/2019 6:42 AM CDT BASIC METABOLIC PANEL Timed 04/18/2019 6:42 AM CDT DIFFERENTIAL AUTO Timed 04/17/2019 10: 47 PM CDT CBC WITH AUTO DIFFERENTIAL Timed 04/17/2019 10:47 PM CDT PHOSPHORUS Timed 04/17/2019 10:47 PM CDT MAGNESIUM Timed 04/17/2019 10:47 PM CDT POTASSIUM, WHOLE BLOOD STAT 04/17/2019 8:06 PM CDT CRITICAL RESULT CALLBACK CHEMISTRY Timed 04/17/2019 6:51 PM CDT CALCIUM, IONIZED Timed 04/17/2019 6:51 PM CDT BASIC METABOLIC PANEL Timed 04/17/2019 6:51 PM CDT TRANSFUSE RED BLOOD CELLS Timed 04/17/2019 1:10 PM CDT CALCIUM, IONIZED Timed 04/17/2019 1:03 PM CDT BASIC METABOLIC PANEL Timed 04/17/2019 1:03 PM CDT POTASSIUM, WHOLE BLOOD STAT 04/17/2019 9:43 AM CDT CALCIUM,IONIZED, WHOLE BLOOD STAT 04/17/2019 9:43 AM CDT TYPE AND SCREEN Timed 04/17/2019 9:43 AM CDT BASIC METABOLIC PANEL STAT 04/17/2019 9:43 AM CDT PREPARE RBC Timed 04/17/2019 7:42 AM CDT ECG 12-LEAD STAT 04/17/2019 7:30 AM CDT CRITICAL RESULT CALLBACK CHEMISTRY STAT 04/17/2019 6:18 AM CDT CALCIUM, IONIZED STAT 04/17/2019 6:18 AM CDT BASIC METABOLIC PANEL STAT 04/17/2019 6:18 AM CDT CALCIUM, IONIZED Timed 04/17/2019 5:12 AM CDT PHOSPHORUS Timed 04/17/2019 5:12 AM CDT MAGNESIUM Timed 04/17/2019 5:12 AM CDT BASIC METABOLIC PANEL Timed 04/17/2019 5:12 AM CDT DIFFERENTIAL AUTO Timed 04/16/2019 10: 11 PM CDT CBC WITH AUTO DIFFERENTIAL Timed 04/16/2019 10:11 PM CDT BASIC METABOLIC PANEL Timed 04/16/2019 10:11 PM CDT CALCIUM, IONIZED Timed 04/16/2019 6:13 PM CDT BASIC METABOLIC PANEL Timed 04/16/2019 6:13 PM CDT CALCIUM, IONIZED Timed 04/16/2019 12:0 8 PM CDT BASIC METABOLIC PANEL Timed 04/16/2019 12:08 PM CDT CALCIUM, IONIZED Timed 04/16/2019 6:45 AM CDT BASIC METABOLIC PANEL Timed 04/16/2019 6:45 AM CDT CALCIUM, IONIZED Timed 04/15/2019 9:26 PM CDT CBC WITHOUT DIFFERENTIAL Timed 04/15/2019 9:26 PM CDT PHOSPHORUS Timed 04/15/2019 9:26 PM CDT MAGNESIUM Timed 04/15/2019 9:26 PM CDT BASIC METABOLIC PANEL Timed 04/15/2019 9:26 PM CDT CALCIUM, IONIZED Timed 04/15/2019 8:14 PM CDT CALCIUM, IONIZED Timed 04/15/2019 1:45 PM CDT BASIC METABOLIC PANEL Timed 04/15/2019 5:20 AM CDT CBC WITHOUT DIFFERENTIAL Timed 04/15/2019 5:16 AM CDT CALCIUM, IONIZED Timed 04/15/2019 5:11 AM CDT XR ABDOMEN AP 1 VIEW ED Urgent/IP Urgent 04/15/2019 4:21 AM CDT CALCIUM, IONIZED Timed 04/14/2019 11:1 8 PM CDT VITAMIN D 25 HYDROXY Timed 04/14/2019 11:18 PM CDT CBC WITHOUT DIFFERENTIAL Timed 04/14/2019 11:18 PM CDT PHOSPHORUS Timed 04/14/2019 11:18 PM CDT PTH Timed 04/14/2019 11:18 PM CDT MAGNESIUM Timed 04/14/2019 11:18 PM CDT BASIC METABOLIC PANEL Timed 04/14/2019 11:18 PM CDT APTT Timed 04/14/2019 5:12 PM CDT PROTIME-INR Timed 04/14/2019 5:12 PM CDT CALCIUM, IONIZED Timed 04/14/2019 4:36 PM CDT CBC WITHOUT DIFFERENTIAL Timed 04/14/2019 4:36 PM CDT PHOSPHORUS Timed 04/14/2019 4:36 PM CDT MAGNESIUM Timed 04/14/2019 4:36 PM CDT COMPREHENSIVE METABOLIC PANEL Timed 04/14/2019 4:36 PM CDT SODIUM, URINE, RANDOM Routine 04/14/2019 1:52 PM CDT CREATININE, URINE, RANDOM Routine 04/14/2019 1:52 PM CDT PREPARE RBC Timed 04/14/2019 12:14 PM CDT CRITICAL RESULT CALLBACK CHEMISTRY Timed 04/14/2019 9:17 AM CDT CALCIUM, IONIZED Timed 04/14/2019 9:17 AM CDT TROPONIN I Timed 04/14/2019 9:17 AM CDT CBC WITHOUT DIFFERENTIAL Timed 04/14/2019 9:17 AM CDT PHOSPHORUS Timed 04/14/2019 9:17 AM CDT MAGNESIUM Timed 04/14/2019 9:17 AM CDT BASIC METABOLIC PANEL Timed 04/14/2019 9:17 AM CDT TROPONIN I STAT 04/14/2019 6:50 AM CDT CALCIUM, IONIZED STAT 04/14/2019 5:21 AM CDT ECG 12-LEAD STAT 04/14/2019 4:21 AM CDT DIFFERENTIAL AUTO Timed 04/14/2019 1:4 5 AM CDT CRITICAL RESULT CALLBACK CHEMISTRY Timed 04/14/2019 1:45 AM CDT CBC WITH AUTO DIFFERENTIAL Timed 04/14/2019 1:45 AM CDT PHOSPHORUS Timed 04/14/2019 1:45 AM CDT MAGNESIUM Timed 04/14/2019 1:45 AM CDT ALBUMIN Timed 04/14/2019 1:45 AM CDT BASIC METABOLIC PANEL Timed 04/14/2019 1:45 AM CDT COLOSTOMY 04/13/2019 3:23 PM CDT Large bowel obstruction (CMS/HCC) Case Notes [id number] EXPLORATORY LAPAROTOMY 04/13/2019 3:23 PM CDT Large bowel obstruction (CMS/HCC) Case Notes [id number] APTT Timed 04/12/2019 9:48 PM CDT PROTIME-INR Timed 04/12/2019 9:48 PM CDT CBC WITHOUT DIFFERENTIAL Timed 04/12/2019 9:48 PM CDT TYPE AND SCREEN Timed 04/12/2019 9:48 PM CDT PHOSPHORUS Timed 04/12/2019 9:48 PM CDT MAGNESIUM Timed 04/12/2019 9:48 PM CDT BASIC METABOLIC PANEL Timed 04/12/2019 9:[address] BODY OUTSIDE CONSULT ED Urgent/IP Urgent 04/12/2019 5:22 AM CDT URINALYSIS AND REFLEX TO MICROSCOPIC Routine 04/12/2019 2:03 AM CDT URINALYSIS, MICROSCOPIC ONLY Routine 04/12/2019 2:03 AM CDT URINE CULTURE Routine 04/12/2019 2:03 AM CDT CBC WITHOUT DIFFERENTIAL Timed 04/12/2019 2:00 AM CDT PHOSPHORUS Timed 04/12/2019 2:00 AM CDT MAGNESIUM Timed 04/12/2019 2:00 AM CDT BASIC METABOLIC PANEL Timed 04/12/2019 2:00 AM CDT documented in this encounter Results * (ABNORMAL) Calcium, ionized (04/24/2019 5:42 AM CDT) Pathologist [facility] Calcium, Ionized 5.15(H) 4.50 - 5.10 mg/dL [facility] Blood specimen (specimen) 04/24/2019 5:42 AM CDT 04/24/2019 6:14 AM CDT us Greyson Reeves MD LAB BLOOD ORDERABLES Final R esult [facility] [address] [place] [address] * Basic metabolic panel (04/23/2019 8:19 PM CDT) Pathologist [facility] Sodium 136 135 - 145 mmol/L [facility] Potassium, pl 3.9 3.3 - 4.9 mmol/L [facility] Chloride 100 97 - 110 mmol/L [facility] CO2 29 22 - 32 mmol/L [facility] Anion gap 7 2 - 15 mmol/L [facility] BUN 8 8 - 25 mg/dL [facility] Creatinine 0.76 0.60 - 1.10 mg/dL [facility] Glucose 145 70 - 199 mg/dL [facility] Comment: Interpretive Data Fasting glucose >/= [...] interpretive data was last revised 2017. Calcium 9.4 8.5 - 10.3 mg/dL [facility] Blood specimen (specimen) 04/23/2019 8:19 PM CDT 04/23/2019 8:49 PM CDT Greyson Reeves MD LAB BLOOD ORDERABLES Final R esult Performing Organization Address [facility] de Phone Number [address] [address] * Calcium, ionized (04/23/2019 8:19 PM CDT) Calcium, Ionized 4.92 4.50 - 5.10 mg/dL [facility] Blood specimen (specimen) 04/23/2019 8:19 PM CDT 04/23/2019 8:57 PM CDT Greyson Reeves MD LAB BLOOD ORDERABLES Final R esult Performing Organization Address [facility] de Phone Number [address] [address] * Calcium, ionized (04/23/2019 5:52 AM CDT) Calcium, Ionized 4.86 4.50 - 5.10 mg/dL [facility] Blood specimen (specimen) 04/23/2019 5:52 AM CDT 04/23/2019 6:43 AM CDT Greyson Reeves MD LAB BLOOD ORDERABLES Final R esult Performing Organization Address [facility] de Phone Number [address] [place] [address] * (ABNORMAL) Basic metabolic panel (04/22/2019 9:59 PM CDT) Sodium 135 135 - 145 mmol/L [facility] Potassium, pl 3.7 3.3 - 4.9 mmol/L [facility] Chloride 99 97 - 110 mmol/L [facility] CO2 28 22 - 32 mmol/L [facility] Anion gap 8 2 - 15 mmol/L [facility] BUN 6(L) 8 - 25 mg/dL [facility] Creatinine 0.79 0.60 - 1.10 mg/dL [facility] Glucose 127 70 - 199 mg/dL [facility] Comment: Interpretive Data Fasting glucose >/= [...] interpretive data was last revised 2017. Calcium 9.2 8.5 - 10.3 mg/dL [facility] Blood specimen (specimen) 04/22/2019 9:59 PM CDT 04/22/2019 10:54 PM CDT us Greyson Reeves MD LAB BLOOD ORDERABLES Final R esult [facility] [address] [place] [address] * (ABNORMAL) Calcium, ionized (04/22/2019 6:27 PM CDT) Pathologist [facility] Calcium, Ionized 5.11(H) 4.50 - 5.10 mg/dL [facility] Blood specimen (specimen) 04/22/2019 6:27 PM CDT 04/22/2019 7:29 PM CDT Greyson Reeves MD LAB BLOOD ORDERABLES Final R esult Performing Organization Address City/[facility]/ZIP Co de Phone Number [facility] [address] [place] [address] * Calcium, ionized (04/22/2019 5:56 AM CDT) Calcium, Ionized 5.04 4.50 - 5.10 mg/dL [facility] Blood specimen (specimen) 04/22/2019 5:56 AM CDT 04/22/2019 6:13 AM CDT Greyson Reeves MD LAB BLOOD ORDERABLES Final R [facility] Performing Organization Address [facility] Co de Phone Number [facility] [address] [address] * (ABNORMAL) Basic metabolic panel (04/21/2019 10:10 PM CDT) Pathologist [facility] Sodium 139 135 - 145 mmol/L [facility] Potassium, pl 3.4 3.3 - 4.9 mmol/L [facility] Chloride 103 97 - 110 mmol/L [facility] CO2 30 22 - 32 mmol/L [facility] Anion gap 6 2 - 15 mmol/L [facility] BUN 5(L) 8 - 25 mg/dL [facility] Creatinine 0.70 0.60 - 1.10 mg/dL [facility] Glucose 142 70 - 199 mg/dL [facility] Comment: Interpretive Data Fasting glucose >/= [...] interpretive data was last revised 2017. Calcium 9.3 8.5 - 10.3 mg/dL [facility] Blood specimen (specimen) 04/21/2019 10:10 PM CDT 04/21/2019 10:41 PM CDT Greyson Reeves MD LAB BLOOD ORDERABLES Final R esult Performing Organization Address [facility] Co de Phone Number [address] [address] * Calcium, ionized (04/21/2019 6:18 PM CDT) Calcium, Ionized 5.00 4.50 - 5.10 mg/dL [facility] Blood specimen (specimen) 04/21/2019 6:18 PM CDT 04/21/2019 6:50 PM CDT Greyson Reeves MD LAB BLOOD ORDERABLES Final R esult Performing Organization Address [facility] de Phone Number [address] [address] * Calcium, ionized (04/21/2019 5:48 AM CDT) Calcium, Ionized 4.95 4.50 - 5.10 mg/dL [facility] Blood specimen (specimen) 04/21/2019 5:48 AM CDT 04/21/2019 6:24 AM CDT Greyson Reeves MD LAB BLOOD ORDERABLES Final R esult Performing Organization Address [facility] Co de Phone Number [address] [address] * Vitamin D 25 hydroxy (04/20/2019 10:22 PM CDT) Vitamin D 25-OH 34 30 - 80 ng/mL [facility] Blood specimen (specimen) 04/20/2019 10:22 PM CDT 04/20/2019 11:31 PM CDT Greyson Reeves MD LAB BLOOD ORDERABLES Final R esult [place] [address] * (ABNORMAL) Basic metabolic panel (04/20/2019 10:22 PM CDT) Sodium 140 135 - 145 mmol/L [facility] Potassium, pl 3.1(L) 3.3 - 4.9 mmol/L [facility] Chloride 104 97 - 110 mmol/L [facility] CO2 28 22 - 32 mmol/L [facility] Anion gap 8 2 - 15 mmol/L [facility] BUN 6(L) 8 - 25 mg/dL [facility] Creatinine 0.66 0.60 - 1.10 mg/dL [facility] Glucose 128 70 - 199 mg/dL [facility] Comment: Interpretive Data Fasting glucose >/= [...] interpretive data was last revised 2017. Calcium 9.2 8.5 - 10.3 mg/dL [facility] Blood specimen (specimen) 04/20/2019 10:22 PM CDT 04/20/2019 11:31 PM CDT Greyson Reeves MD LAB BLOOD ORDERABLES Final R esult [place] [address] * Phosphorus (04/20/2019 10:22 PM CDT) Phosphorus, pl 2.6 2.3 - 4.5 mg/dL [facility] Blood specimen (specimen) 04/20/2019 10:22 PM CDT 04/20/2019 11:31 PM CDT Greyson Reeves MD LAB BLOOD ORDERABLES Final R esult Performing Organization Address [facility] Co de Phone Number [address] [address] * Magnesium (04/20/2019 10:22 PM CDT) Magnesium 1.8 1.4 - 2.5 mg/dL [facility] Blood specimen (specimen) 04/20/2019 10:22 PM CDT 04/20/2019 11:31 PM CDT Greyson Reeves MD LAB BLOOD ORDERABLES Final [facility] Performing Organization Address [facility] de Phone Number [address] [address] * (ABNORMAL) Potassium, whole blood (04/20/2019 5:39 PM CDT) Pathologist [facility] Potassium, bld 3.2(L) 3.3 - 4.9 mmol/L [facility] Blood specimen (specimen) 04/20/2019 5:39 PM CDT 04/20/2019 6:13 PM CDT Greyson Reeves MD LAB BLOOD ORDERABLES Final R esult Performing Organization Address [facility] de Phone Number [address] [address] * (ABNORMAL) Calcium, ionized (04/20/2019 5:39 PM CDT) Calcium, Ionized 5.16(H) 4.50 - 5.10 mg/dL [facility] Blood specimen (specimen) 04/20/2019 5:39 PM CDT 04/20/2019 6:13 PM CDT Greyson Reeves MD LAB BLOOD ORDERABLES Final R esult Performing Organization Address City/[facility]/ZIP Co de Phone Number [facility] [address] [place] [address] * (ABNORMAL) Albumin (04/20/2019 6:07 AM CDT) Albumin 2.9(L) 3.5 - 5.0 g/dL [facility] Blood specimen (specimen) 04/20/2019 6:07 AM CDT 04/20/2019 6:44 AM CDT Greyson Reeves MD LAB BLOOD ORDERABLES Final R esult Performing Organization Address [facility] Co de Phone Number [facility] [address] [place] [address] * (ABNORMAL) Basic metabolic panel (04/20/2019 6:07 AM CDT) Pathologist [facility] Sodium 141 135 - 145 mmol/L [facility] Potassium, pl 3.4 3.3 - 4.9 mmol/L [facility] Chloride 105 97 - 110 mmol/L [facility] CO2 29 22 - 32 mmol/L [facility] Anion gap 7 2 - 15 mmol/L [facility] BUN 4(L) 8 - 25 mg/dL [facility] Creatinine 0.60 0.60 - 1.10 mg/dL [facility] Glucose 110 70 - 199 mg/dL [facility] Comment: Interpretive Data Fasting glucose >/= [...] interpretive data was last revised 2017. Calcium 8.9 8.5 - 10.3 mg/dL [facility] Blood specimen (specimen) 04/20/2019 6:07 AM CDT 04/20/2019 6:44 AM CDT Greyson Reeves MD LAB BLOOD ORDERABLES Final R esult Performing Organization Address [facility] Co de Phone Number [address] [address] * Calcium, ionized (04/20/2019 6:07 AM CDT) [facility] Calcium, Ionized 4.93 4.50 - 5.10 mg/dL [facility] Blood specimen (specimen) 04/20/2019 6:07 AM CDT 04/20/2019 6:44 AM CDT Greyson Reeves MD LAB BLOOD ORDERABLES Final R esult Performing Organization Address [facility] de Phone Number [address] [address] * (ABNORMAL) CBC without differential (04/19/2019 10:10 PM CDT) [facility] WBC 5.6 3.8 - 9.9 K/cumm [facility] Hgb 10.0(L) 11.9 - 15.5 g/dL [facility] Hct 29.5(L) 35.6 - 45.5 % [facility] Plt 137(L) 150 - 400 K/cumm [facility] MPV 10.9 9.1 - 12.3 fL [facility] RBC 3.35(L) 3.90 - 5.20 M/cumm [facility] MCV 88.1 81.3 - 96.4 fL [facility] MCH 29.9 27.1 - 33.3 pg [facility] MCHC 33.9 32.3 - 35.7 g/dL [facility] RDW CV 15.3(H) 11.1 - 14.9 % [facility] RDW SD 49.1(H) 35.7 - 48.1 fL [facility] NRBC abs 0.00 0.00 - 0.01 K/cumm [facility] Blood specimen (specimen) 04/19/2019 10:10 PM CDT 04/19/2019 10:44 PM CDT Greyson Reeves MD LAB BLOOD ORDERABLES Final R esult Performing Organization Address [facility] de Phone Number [address] [address] * Phosphorus (04/19/2019 10:10 PM CDT) Pathologist [facility] Phosphorus, pl 2.4 2.3 - 4.5 mg/dL [facility] Blood specimen (specimen) 04/19/2019 10:10 PM CDT 04/19/2019 10:44 PM CDT Greyson Reeves MD LAB BLOOD ORDERABLES Final R esult Performing Organization Address [facility] de Phone Number [address] [address] * Magnesium (04/19/2019 10:10 PM CDT) [facility] Magnesium 1.7 1.4 - 2.5 mg/dL [facility] Blood specimen (specimen) 04/19/2019 10:10 PM CDT 04/19/2019 10:44 PM CDT Greyson Reeves MD LAB BLOOD ORDERABLES Final R [facility] Performing Organization Address [facility] de Phone Number [address] [address] * (ABNORMAL) Basic metabolic panel (04/19/2019 6:14 PM CDT) Pathologist [facility] Sodium 138 135 - 145 mmol/L [facility] Potassium, pl 2.9(L) 3.3 - 4.9 mmol/L [facility] Chloride 102 97 - 110 mmol/L [facility] CO2 28 22 - 32 mmol/L [facility] Anion gap 8 2 - 15 mmol/L [facility] BUN 4(L) 8 - 25 mg/dL [facility] Creatinine 0.56(L) 0.60 - 1.10 mg/dL [facility] Glucose 106 70 - 199 mg/dL [facility] [facility] Comment: Interpretive Data Fasting glucose >/= [...] interpretive data was last revised 2017. Calcium 9.4 8.5 - 10.3 mg/dL [facility] Blood specimen (specimen) 04/19/2019 6:14 PM CDT 04/19/2019 6:49 PM CDT Greyson Reeves MD LAB BLOOD ORDERABLES Final R esult Performing Organization Address [facility] de Phone Number [address] [address] * Calcium, ionized (04/19/2019 6:14 PM CDT) Calcium, Ionized 5.04 4.50 - 5.10 mg/dL [facility] Blood specimen (specimen) 04/19/2019 6:14 PM CDT 04/19/2019 6:49 PM CDT Greyson Reeves MD LAB BLOOD ORDERABLES Final R esult Performing Organization Address [facility] Co de Phone Number [address] [address] * (ABNORMAL) Basic metabolic panel (04/19/2019 6:37 AM CDT) Sodium 143 135 - 145 mmol/L [facility] Potassium, pl 3.4 3.3 - 4.9 mmol/L [facility] Chloride 106 97 - 110 mmol/L [facility] CO2 28 22 - 32 mmol/L [facility] Anion gap 9 2 - 15 mmol/L [facility] BUN 2(L) 8 - 25 mg/dL [facility] Creatinine 0.56(L) 0.60 - 1.10 mg/dL [facility] Glucose 113 70 - 199 mg/dL [facility] Comment: Interpretive Data Fasting glucose >/= [...] interpretive data was last revised 2017. Calcium 9.4 8.5 - 10.3 mg/dL [facility] Blood specimen (specimen) 04/19/2019 6:37 AM CDT 04/19/2019 7:44 AM CDT Greyson Reeves MD LAB BLOOD ORDERABLES Final R esult Performing Organization Address [facility] Co de Phone Number [address] [address] * Calcium, ionized (04/19/2019 6:37 AM CDT) Pathologist [facility] Calcium, Ionized 4.88 4.50 - 5.10 mg/dL [facility] Blood specimen (specimen) 04/19/2019 6:37 AM CDT 04/19/2019 7:44 AM CDT Greyson Reeves MD LAB BLOOD ORDERABLES Final R esult Performing Organization Address [facility] Co de Phone Number [address] [address] * (ABNORMAL) Phosphorus (04/18/2019 9:43 PM CDT) [facility] Phosphorus, pl 1.9(L) 2.3 - 4.5 mg/dL [facility] Blood specimen (specimen) 04/18/2019 9:43 PM CDT 04/18/2019 10:44 PM CDT Greyson Reeves MD LAB BLOOD ORDERABLES Final R esult Performing Organization Address [facility] Co de Phone Number [address] [address] * Magnesium (04/18/2019 9:43 PM CDT) [facility] Magnesium 1.6 1.4 - 2.5 mg/dL [facility] Blood specimen (specimen) 04/18/2019 9:43 PM CDT 04/18/2019 10:44 PM CDT Greyson Reeves MD LAB BLOOD ORDERABLES Final R esult Performing Organization Address [facility] Co de Phone Number [address] [address] * (ABNORMAL) CBC without differential (04/18/2019 9:43 PM CDT) [facility] WBC 5.2 3.8 - 9.9 K/cumm [facility] Hgb 9.4(L) 11.9 - 15.5 g/dL [facility] Hct 28.5(L) 35.6 - 45.5 % [facility] Plt 121(L) 150 - 400 K/cumm [facility] MPV 11.1 9.1 - 12.3 fL [facility] RBC 3.25(L) 3.90 - 5.20 M/cumm [facility] MCV 87.7 81.3 - 96.4 fL [facility] MCH 28.9 27.1 - 33.3 pg [facility] MCHC 33.0 32.3 - 35.7 g/dL [facility] RDW CV 15.5(H) 11.1 - 14.9 % [facility] RDW SD 49.4(H) 35.7 - 48.1 fL [facility] NRBC abs 0.00 0.00 - 0.01 K/cumm [facility] Blood specimen (specimen) 04/18/2019 9:43 PM CDT 04/18/2019 10:44 PM CDT us Greyson Reeves MD LAB BLOOD ORDERABLES Final R esult [facility] [address] [place] [address] * (ABNORMAL) Basic metabolic panel (04/18/2019 6:33 PM CDT) Sodium 141 135 - 145 mmol/L [facility] Potassium, pl 2.8(L) 3.3 - 4.9 mmol/L [facility] Chloride 107 97 - 110 mmol/L [facility] CO2 26 22 - 32 mmol/L [facility] Anion gap 8 2 - 15 mmol/L [facility] BUN 3(L) 8 - 25 mg/dL [facility] Creatinine 0.53(L) 0.60 - 1.10 mg/dL [facility] Glucose 125 70 - 199 mg/dL [facility] Comment: Interpretive Data Fasting glucose >/= [...] interpretive data was last revised 2017. Calcium 8.4(L) 8.5 - 10.3 mg/dL [facility] Blood specimen (specimen) 04/18/2019 6:33 PM CDT 04/18/2019 7:25 PM CDT Greyson Reeves MD LAB BLOOD ORDERABLES Final R esult Performing Organization Address City/[facility]/ZIP Co de Phone Number JASON [address] [address] * Calcium, ionized (04/18/2019 6:33 PM CDT) Calcium, Ionized 4.83 4.50 - 5.10 mg/dL [facility] Blood specimen (specimen) 04/18/2019 6:33 PM CDT 04/18/2019 7:25 PM CDT Greyson Reeves MD LAB BLOOD ORDERABLES Final R [facility] Performing Organization Address [facility] Co de Phone Number [facility] [address] [address] * (ABNORMAL) Basic metabolic panel (04/18/2019 6:42 AM CDT) Pathologist [facility] Sodium 142 135 - 145 mmol/L [facility] Potassium, pl 3.1(L) 3.3 - 4.9 mmol/L [facility] Chloride 110 97 - 110 mmol/L [facility] CO2 24 22 - 32 mmol/L [facility] Anion gap 8 2 - 15 mmol/L [facility] BUN 3(L) 8 - 25 mg/dL [facility] Creatinine 0.54(L) 0.60 - 1.10 mg/dL [facility] Glucose 119 70 - 199 mg/dL [facility] Comment: Interpretive Data Fasting glucose >/= [...] 2017. Calcium 8.5 8.5 - 10.3 mg/dL [facility] Blood specimen (specimen) 04/18/2019 6:42 AM CDT 04/18/2019 8:08 AM CDT Greyson Reeves MD LAB BLOOD ORDERABLES Final R esult Performing Organization Address City/[facility] Co de Phone Number [address] [address] * Calcium, ionized (04/18/2019 6:42 AM CDT) Pathologist [facility] Calcium, Ionized 4.90 4.50 - 5.10 mg/dL [facility] Blood specimen (specimen) 04/18/2019 6:42 AM CDT 04/18/2019 8:08 AM CDT Greyson Reeves MD LAB BLOOD ORDERABLES Final R esult Performing Organization Address City/[facility] Co de Phone Number [address] [address] * (ABNORMAL) Differential, auto (04/17/2019 10:47 PM CDT) [facility] Neutrophil abs 3.3 1.7 - 6.5 K/cumm [facility] Imm gran abs 0.1 0.0 - 0.1 K/cumm [facility] Lymphocyte abs 0.2(L) 0.8 - 3.3 K/cumm [facility] Monocyte abs 0.5 0.2 - 0.8 K/cumm [facility] Eosinophil abs 0.1 0.0 - 0.5 K/cumm [facility] Basophil abs 0.0 0.0 - 0.1 K/cumm [facility] Neutrophil pct 78.1 % [facility] Comment: Interpretive Data Percent cell count reference ranges are not reported, since discordance with absolute values may lead to misinterpretation of CBC data. Current Interpretive Data was last revised on 2017. Imm gran pct 2.4 % [facility] Comment: Interpretive Data Percent cell count reference ranges are not reported, since discordance with absolute values may lead to misinterpretation of CBC data. Current Interpretive Data was last revised on 2017. Lymphocyte pct 4.8 % [facility] Comment: Interpretive Data Percent cell count reference ranges are not reported, since discordance with absolute values may lead to misinterpretation of CBC data. Current Interpretive Data was last revised on 2017. Monocyte pct 11.8 % [facility] Comment: Interpretive Data Percent cell count reference ranges are not reported, since discordance with absolute values may lead to misinterpretation of CBC data. Current Interpretive Data was last revised on 2017. Eosinophil pct 2.4 % [facility] Comment: Interpretive Data Percent cell count reference ranges are not reported, since discordance with absolute values may lead to misinterpretation of CBC data. Current Interpretive Data was last revised on 2017. Basophil pct 0.5 % [facility] Comment: Interpretive Data Percent cell count reference ranges are not reported, since discordance with absolute values may lead to misinterpretation of CBC data. Current Interpretive Data was last revised on 2017. Blood specimen (specimen) 04/17/2019 10:47 PM CDT 04/17/2019 11:52 PM CDT us Katarina Hall PUBLICATIONS SALES REPRESENTATIVE LAB BLOOD ORDERABLES Final Res ult Performing Organization Address [facility]/ZIP Co de Phone Number [address] [address] * (ABNORMAL) Phosphorus (04/17/2019 10:47 PM CDT) Phosphorus, pl 1.4(L) 2.3 - 4.5 mg/dL [facility] Blood specimen (specimen) 04/17/2019 10:47 PM CDT 04/17/2019 11:52 PM CDT us Greyson Reeves MD LAB BLOOD ORDERABLES Final R esult Performing Organization Address [facility]/ZIP Co de Phone Number [facility] [address] [place] [address] * Magnesium (04/17/2019 10:47 PM CDT) Pathologist [facility] Magnesium 2.0 1.4 - 2.5 mg/dL [facility] Blood specimen (specimen) 04/17/2019 10:47 PM CDT 04/17/2019 11:52 PM CDT Greyson Reeves MD LAB BLOOD ORDERABLES Final R esult Performing Organization Address City/[facility]/ZIP Co de Phone Number [facility] [address] [place] [address] * (ABNORMAL) CBC with auto differential (04/17/2019 10:47 PM CDT) [facility] WBC 4.2 3.8 - 9.9 K/cumm [facility] Hgb 8.9(L) 11.9 - 15.5 g/dL [facility] Hct 27.3(L) 35.6 - 45.5 % [facility] Plt 95(L) 150 - 400 K/cumm [facility] MPV 10.6 9.1 - 12.3 fL [facility] RBC 3.06(L) 3.90 - 5.20 M/cumm [facility] MCV 89.2 81.3 - 96.4 fL [facility] Comment:MCV delta due to erin arent blood transfusion. MCH 29.1 27.1 - 33.3 pg [facility] MCHC 32.6 32.3 - 35.7 g/dL [facility] RDW CV 15.6(H) 11.1 - 14.9 % [facility] RDW SD 50.8(H) 35.7 - 48.1 fL [facility] NRBC abs 0.00 0.00 - 0.01 K/cumm [facility] Blood specimen (specimen) 04/17/2019 10:47 PM CDT 04/17/2019 11:52 PM CDT Katarina Hall PUBLICATIONS SALES REPRESENTATIVE LAB BLOOD ORDERABLES Final Res ult Performing Organization Address [facility]/ZIP Co de Phone Number [facility] [address] [place] [address] * Potassium, whole blood (04/17/2019 8:06 PM CDT) Pathologist [facility] Potassium, bld 3.5 3.3 - 4.9 mmol/L [facility] Blood specimen (specimen) 04/17/2019 8:06 PM CDT 04/17/2019 8:36 PM CDT Greyson Reeves MD LAB BLOOD ORDERABLES Final R esult Performing Organization Address City/[facility] Co de Phone Number JASON BLACK [address] [place] [address] * Critical Result Callback Chemistry (04/17/2019 6:51 PM CDT) [facility] Date Notified [id number] [facility] Time Notified 1946 [facility] TestName Potassium Plas [facility] Called/Read Back gaby GOMEZ [facility] Credentials RN JASON [facility] Called By cb JASON [facility] Blood specimen (specimen) 04/17/2019 6:51 PM CDT 04/17/2019 7:09 PM CDT Greyson Reeves MD LAB BLOOD ORDERABLES Final R esult Performing Organization Address City/[facility] Co de Phone Number [facility] [address] [place] [address] * (ABNORMAL) Basic metabolic panel (04/17/2019 6:51 PM CDT) [facility] Sodium 139 135 - 145 mmol/L [facility] Potassium, pl 8.8(C) 3.3 - 4.9 mmol/L [facility] Chloride 112(H) 97 - 110 mmol/L [facility] CO2 19(L) 22 - 32 mmol/L [facility] Anion gap 8 2 - 15 mmol/L [facility] BUN 5(L) 8 - 25 mg/dL [facility] Creatinine 0.50(L) 0.60 - 1.10 mg/dL [facility] Glucose 274(H) 70 - 199 mg/dL [facility] Comment: Interpretive Data Fasting glucose >/= [...] interpretive data was last revised 2017. Calcium 6.8(L) 8.5 - 10.3 mg/dL [facility] Blood specimen (specimen) 04/17/2019 6:51 PM CDT 04/17/2019 7:09 PM CDT Greyson Reeves MD LAB BLOOD ORDERABLES Final R esult Performing Organization Address [facility] de Phone Number [address] [address] * (ABNORMAL) Calcium, ionized (04/17/2019 6:51 PM CDT) [facility] Calcium, Ionized 3.87(L) 4.50 - 5.10 mg/dL [facility] Blood specimen (specimen) 04/17/2019 6:51 PM CDT 04/17/2019 7:06 PM CDT Greyson Reeves MD LAB BLOOD ORDERABLES Final R esult Performing Organization Address [facility] de Phone Number [facility] [address] [place] [address] * Transfuse RBC (04/17/2019 4:46 PM CDT) Blood specimen (specimen) Katarina Hall PUBLICATIONS SALES REPRESENTATIVE BLOOD TRANSFUSION ORDERABLES F inal Result Performing Organization Address [facility]/State/ZIP Co de Phone Number [address] [address] * Transfuse RBC: 1 Units (04/17/2019 4:46 PM CDT) Blood specimen (specimen) Katarina Hall PUBLICATIONS SALES REPRESENTATIVE BLOOD TRANSFUSION ORDERABLES F inal Result * Calcium, ionized (04/17/2019 1:03 PM CDT) Calcium, Ionized 4.54 4.50 - 5.10 mg/dL [facility] Blood specimen (specimen) 04/17/2019 1:03 PM CDT 04/17/2019 1:58 PM CDT Greyson Reeves MD LAB BLOOD ORDERABLES Final R esult Performing Organization Address City/State/[facility] Co de Phone Number [address] [address] * (ABNORMAL) Basic metabolic panel (04/17/2019 1:03 PM CDT) Pathologist [facility] Sodium 138 135 - 145 mmol/L [facility] Potassium, pl 3.3 3.3 - 4.9 mmol/L [facility] Chloride 110 97 - 110 mmol/L [facility] CO2 19(L) 22 - 32 mmol/L [facility] Anion gap 9 2 - 15 mmol/L [facility] BUN 5(L) 8 - 25 mg/dL [facility] Creatinine 0.52(L) 0.60 - 1.10 mg/dL [facility] Glucose 263(H) 70 - 199 mg/dL [facility] Comment: Interpretive Data Fasting glucose >/= [...] 2017. Calcium 7.4(L) 8.5 - 10.3 mg/dL [facility] Blood specimen (specimen) 04/17/2019 1:03 PM CDT 04/17/2019 1:58 PM CDT Greyson Reeves MD LAB BLOOD ORDERABLES Final R esult Performing Organization Address [facility] Co de Phone Number [address] [phone] * Calcium, ionized, whole blood (04/17/2019 9:43 AM CDT) Ca, ionized, bld 4.73 4.50 - 5.10 mg/dL [facility] Blood specimen (specimen) 04/17/2019 9:43 AM CDT 04/17/2019 10:43 AM CDT Greyson Reeves MD LAB BLOOD ORDERABLES Final R esult Performing Organization Address [facility] de Phone Number [address] [phone] * Potassium, whole blood (04/17/2019 9:43 AM CDT) Potassium, bld 3.5 3.3 - 4.9 mmol/L [facility] Blood specimen (specimen) 04/17/2019 9:43 AM CDT 04/17/2019 10:43 AM CDT Greyson Reeves MD LAB BLOOD ORDERABLES Final R esult Performing Organization Address [facility] de Phone Number [address] [phone] * (ABNORMAL) Basic metabolic panel (04/17/2019 9:43 AM CDT) Sodium 143 135 - 145 mmol/L [facility] Potassium, pl 3.5 3.3 - 4.9 mmol/L [facility] Chloride 114(H) 97 - 110 mmol/L [facility] CO2 21(L) 22 - 32 mmol/L [facility] Anion gap 8 2 - 15 mmol/L [facility] BUN 6(L) 8 - 25 mg/dL [facility] Creatinine 0.58(L) 0.60 - 1.10 mg/dL [facility] Glucose 103 70 - 199 mg/dL [facility] Comment: Interpretive Data Fasting glucose >/= [...] interpretive data was last revised 2017. Calcium 7.7(L) 8.5 - 10.3 mg/dL [facility] Blood specimen (specimen) 04/17/2019 9:43 AM CDT 04/17/2019 10:45 AM CDT Greyson Reeves MD LAB BLOOD ORDERABLES Final R esult [facility] [address] [place] [address] * Type and screen (04/17/2019 9:43 AM CDT) Yolande, indirect Negative [facility] ABO Rh AB Positive [facility] Blood specimen (specimen) 04/17/2019 9:43 AM CDT 04/17/2019 10:47 AM CDT Narrative [facility] - 04/17/2019 11:44 AM CDT Has the patient had Daratumumab (Darzalex) in the past 6 months?->Unknown Katarina Hall PUBLICATIONS SALES REPRESENTATIVE LAB BLOOD BANK TEST ORDERABLES Final Result Performing Organization Address [facility] Co de Phone Number JASON BLACK[address] [address] * Prepare RBC: 2 Units (04/17/2019 7:42 AM CDT) Product code [id number] [facility] Unit Number [id number] [facility] Product Blood Type BPOS [facility] Dispense Status PRESUMED TRANSFUSED [facility] Product code [id number] [facility] Unit Number [id number] [facility] Product Blood Type BPOS [facility] Dispense Status RETURNED [facility] Blood specimen (specimen) 04/17/2019 7:42 AM CDT 04/17/2019 7:43 AM CDT Narrative [facility] - 04/18/2019 7:34 AM CDT Are special requirements needed? (all products are leukoreduced)->No Date required:-[id number] LRRBC # of [id number] Reasons:-Hgb <7 g/dL} Katarina Hall PUBLICATIONS SALES REPRESENTATIVE BLOOD BANK PRODUCT ORDERABLES Final Result Performing Organization Address [facility] Co de Phone Number JASON BLACK[address] [address] * ECG 12 lead (04/17/2019 7:30 AM CDT) Ventricular Rate EKG/Min 84 BPM [facility] Atrial Rate 84 BPM [facility] IA-Interval (MSEC) 128 ms [facility] QRS-Interval (MSEC) 92 ms [facility] QT-Interval (MSEC) 384 ms [facility] QTc 453 ms [facility] P [place] 22 degrees [facility] R [place] 6 degrees [facility] T [place] 20 degrees [facility] Diagnosis Normal sinus rhythm Normal ECG When compared with ECG of 14-APR-2019 04:21, Vent. rate has decreased BY ??46 BPM Confirmed by PIPER WILSON M.D ([id number]) on 04/17/2019 11:40:05 AM [facility] 04/17/2019 7:30 AM CDT 04/17/2019 11:40 AM CDT us Greyson Reeves MD ECG ORDERABLES Final Result Performing Organization Address City/[facility]/ZIP Co de Phone Number [facility] * Critical Result Callback Chemistry (04/17/2019 6:18 AM CDT) Date Notified [id number] [facility] Time Notified 800 [facility] TestName Potassium Plas [facility] Called/Read Back Penelope GOMEZ [facility] Credentials RN JASON [facility] Called By ra JASON BLACK Blood specimen (specimen) 04/17/2019 6:18 AM CDT 04/17/2019 7:22 AM CDT us Greyson Reeves MD LAB BLOOD ORDERABLES Final R esult Performing Organization Address City/[facility] de Phone Number [facility] [address] [place] [address] * (ABNORMAL) Basic metabolic panel (04/17/2019 6:18 AM CDT) Sodium 145 135 - 145 mmol/L [facility] Potassium, pl 8.1(C) 3.3 - 4.9 mmol/L [facility] Chloride 124(H) 97 - 110 mmol/L [facility] CO2 19(L) 22 - 32 mmol/L [facility] Anion gap 2 2 - 15 mmol/L [facility] BUN 6(L) 8 - 25 mg/dL [facility] Creatinine 0.53(L) 0.60 - 1.10 mg/dL [facility] Glucose 237(H) 70 - 199 mg/dL [facility] Comment: Interpretive Data Fasting glucose >/= [...] interpretive data was last revised 2017. Calcium 6.7(L) 8.5 - 10.3 mg/dL [facility] Blood specimen (specimen) 04/17/2019 6:18 AM CDT 04/17/2019 7:22 AM CDT Greyson Reeves MD LAB BLOOD ORDERABLES Final R esult Performing Organization Address [facility] Co de Phone Number [address] [phone] * (ABNORMAL) Calcium, ionized (04/17/2019 6:18 AM CDT) Calcium, Ionized 4.19(L) 4.50 - 5.10 mg/dL [facility] Blood specimen (specimen) 04/17/2019 6:18 AM CDT 04/17/2019 7:22 AM CDT Greyson Reeves MD LAB BLOOD ORDERABLES Final R esult Performing Organization Address [facility] de Phone Number [address] [address] * (ABNORMAL) Phosphorus (04/17/2019 5:12 AM CDT) Phosphorus, pl 1.3(L) 2.3 - 4.5 mg/dL [facility] Blood specimen (specimen) 04/17/2019 5:12 AM CDT 04/17/2019 5:41 AM CDT Greyson Reeves MD LAB BLOOD ORDERABLES Final R esult Performing Organization Address [facility] Co de Phone Number [address] [address] * Magnesium (04/17/2019 5:12 AM CDT) [facility] Magnesium 1.8 1.4 - 2.5 mg/dL [facility] Blood specimen (specimen) 04/17/2019 5:12 AM CDT 04/17/2019 5:41 AM CDT Greyson Reeves MD LAB BLOOD ORDERABLES Final R [facility] Performing Organization Address [facility] Co de Phone Number [address] [address] * Calcium, ionized (04/17/2019 5:12 AM CDT) [facility] Calcium, Ionized 4.69 4.50 - 5.10 mg/dL [facility] Blood specimen (specimen) 04/17/2019 5:12 AM CDT 04/17/2019 5:41 AM CDT Greyson Reeves MD LAB BLOOD ORDERABLES Final R esult Performing Organization Address [facility] de Phone Number [address] [address] * (ABNORMAL) Basic metabolic panel (04/17/2019 5:12 AM CDT) [facility] Sodium 143 135 - 145 mmol/L [facility] Potassium, pl 3.5 3.3 - 4.9 mmol/L [facility] Chloride 114(H) 97 - 110 mmol/L [facility] CO2 21(L) 22 - 32 mmol/L [facility] Anion gap 8 2 - 15 mmol/L [facility] BUN 7(L) 8 - 25 mg/dL [facility] Creatinine 0.59(L) 0.60 - 1.10 mg/dL [facility] Glucose 112 70 - 199 mg/dL [facility] Comment: Interpretive Data Fasting glucose >/= [...] interpretive data was last revised 2017. Calcium 7.6(L) 8.5 - 10.3 mg/dL [facility] Blood specimen (specimen) 04/17/2019 5:12 AM CDT 04/17/2019 5:41 AM CDT us Greyson Reeves MD LAB BLOOD ORDERABLES Final R esult [facility] [address] [place] [address] * (ABNORMAL) Differential, auto (04/16/2019 10:11 PM CDT) Neutrophil abs 3.4 1.7 - 6.5 K/cumm [facility] Imm gran abs 0.0 0.0 - 0.1 K/cumm [facility] Lymphocyte abs 0.2(L) 0.8 - 3.3 K/cumm [facility] Monocyte abs 0.4 0.2 - 0.8 K/cumm [facility] Eosinophil abs 0.1 0.0 - 0.5 K/cumm [facility] Basophil abs 0.0 0.0 - 0.1 K/cumm [facility] Neutrophil pct 81.3 % [facility] Comment: Interpretive Data Percent cell count reference ranges are not reported, since discordance with absolute values may lead to misinterpretation of CBC data. Current Interpretive Data was last revised on 2017. Imm gran pct 1.2 % [facility] Comment: Interpretive Data Percent cell count reference ranges are not reported, since discordance with absolute values may lead to misinterpretation of CBC data. Current Interpretive Data was last revised on 2017. Lymphocyte pct 5.0 % [facility] Comment: Interpretive Data Percent cell count reference ranges are not reported, since discordance with absolute values may lead to misinterpretation of CBC data. Current Interpretive Data was last revised on 2017. Monocyte pct 10.3 % [facility] Comment: Interpretive Data Percent cell count reference ranges are not reported, since discordance with absolute values may lead to misinterpretation of CBC data. Current Interpretive Data was last revised on 2017. Eosinophil pct 1.7 % [facility] Comment: Interpretive Data Percent cell count reference ranges are not reported, since discordance with absolute values may lead to misinterpretation of CBC data. Current Interpretive Data was last revised on 2017. Basophil pct 0.5 % [facility] Comment: Interpretive Data Percent cell count reference ranges are not reported, since discordance with absolute values may lead to misinterpretation of CBC data. Current Interpretive Data was last revised on 2017. Blood specimen (specimen) 04/16/2019 10:11 PM CDT 04/16/2019 10:43 PM CDT us Katarina Hall [employer] SALES REPRESENTATIVE LAB BLOOD ORDERABLES Final Res ult [facility] [address] [place] [address] * (ABNORMAL) Basic metabolic panel (04/16/2019 10:11 PM CDT) Sodium 143 135 - 145 mmol/L [facility] Potassium, pl 3.0(L) 3.3 - 4.9 mmol/L [facility] Chloride 115(H) 97 - 110 mmol/L [facility] CO2 18(L) 22 - 32 mmol/L [facility] Anion gap 10 2 - 15 mmol/L [facility] BUN 9 8 - 25 mg/dL [facility] Creatinine 0.61 0.60 - 1.10 mg/dL [facility] Glucose 73 70 - 199 mg/dL [facility] Comment: Interpretive Data Fasting glucose >/= [...] interpretive data was last revised 2017. Calcium 7.1(L) 8.5 - 10.3 mg/dL [facility] Blood specimen (specimen) 04/16/2019 10:11 PM CDT 04/16/2019 10:43 PM CDT us Greyson Reeves MD LAB BLOOD ORDERABLES Final R esult Performing Organization Address City/[facility]/ZIP Co de Phone Number [address] [address] * (ABNORMAL) CBC with auto differential (04/16/2019 10:11 PM CDT) WBC 4.2 3.8 - 9.9 K/cumm [facility] Hgb 6.9(L) 11.9 - 15.5 g/dL [facility] Hct 21.0(L) 35.6 - 45.5 % [facility] Plt 82(L) 150 - 400 K/cumm [facility] MPV 11.2 9.1 - 12.3 fL [facility] RBC 2.23(L) 3.90 - 5.20 M/cumm [facility] MCV 94.2 81.3 - 96.4 fL [facility] MCH 30.9 27.1 - 33.3 pg [facility] MCHC 32.9 32.3 - 35.7 g/dL [facility] RDW CV 13.9 11.1 - 14.9 % [facility] RDW SD 48.2(H) 35.7 - 48.1 fL [facility] NRBC abs 0.00 0.00 - 0.01 K/cumm [facility] Blood specimen (specimen) 04/16/2019 10:11 PM CDT 04/16/2019 10:43 PM CDT us Katarina Hall PUBLICATION[employer] SALES REPRESENTATIVE LAB BLOOD ORDERABLES Final Res ult Performing Organization Address [facility]/ZIP Co de Phone Number [facility] [address] [place] [address] * Calcium, ionized (04/16/2019 6:13 PM CDT) Calcium, Ionized 4.53 4.50 - 5.10 mg/dL [facility] Blood specimen (specimen) 04/16/2019 6:13 PM CDT 04/16/2019 7:05 PM CDT Greyson Reeves MD LAB BLOOD ORDERABLES Final R [facility] [address] [place] [address] * (ABNORMAL) Basic metabolic panel (04/16/2019 6:13 PM CDT) [facility] Sodium 142 135 - 145 mmol/L [facility] Potassium, pl 3.2(L) 3.3 - 4.9 mmol/L [facility] Chloride 117(H) 97 - 110 mmol/L [facility] CO2 19(L) 22 - 32 mmol/L [facility] Anion gap 6 2 - 15 mmol/L [facility] BUN 9 8 - 25 mg/dL [facility] Creatinine 0.60 0.60 - 1.10 mg/dL [facility] Glucose 70 70 - 199 mg/dL [facility] Comment: Interpretive Data Fasting glucose >/= [...] interpretive data was last revised 2017. Calcium 7.3(L) 8.5 - 10.3 mg/dL [facility] Blood specimen (specimen) 04/16/2019 6:13 PM CDT 04/16/2019 7:05 PM CDT Greyson Reeves MD LAB BLOOD ORDERABLES Final R esult Performing Organization Address City/[facility]/ZIP Co de Phone Number [facility] [address] [place] [address] * Calcium, ionized (04/16/2019 12:08 PM CDT) Pathologist [facility] Calcium, Ionized 4.81 4.50 - 5.10 mg/dL [facility] Blood specimen (specimen) 04/16/2019 12:08 PM CDT 04/16/2019 12:52 PM CDT Greyson Reeves MD LAB BLOOD ORDERABLES Final R [facility] Performing Organization Address [facility] Co de Phone Number [facility] [address] [address] * (ABNORMAL) Basic metabolic panel (04/16/2019 12:08 PM CDT) Pathologist [facility] Sodium 143 135 - 145 mmol/L [facility] Potassium, pl 3.4 3.3 - 4.9 mmol/L [facility] Chloride 114(H) 97 - 110 mmol/L [facility] CO2 20(L) 22 - 32 mmol/L [facility] Anion gap 9 2 - 15 mmol/L [facility] BUN 10 8 - 25 mg/dL [facility] Creatinine 0.71 0.60 - 1.10 mg/dL [facility] Glucose 86 70 - 199 mg/dL [facility] Comment: Interpretive Data Fasting glucose >/= [...] interpretive data was last revised 2017. Calcium 8.2(L) 8.5 - 10.3 mg/dL [facility] Blood specimen (specimen) 04/16/2019 12:08 PM CDT 04/16/2019 12:52 PM CDT Greyson Reeves MD LAB BLOOD ORDERABLES Final R [facility] Performing Organization Address [facility] Co de Phone Number [address] [address] * Calcium, ionized (04/16/2019 6:45 AM CDT) Pathologist [facility] Calcium, Ionized 4.62 4.50 - 5.10 mg/dL [facility] Blood specimen (specimen) 04/16/2019 6:45 AM CDT 04/16/2019 7:47 AM CDT Greyson Reeves MD LAB BLOOD ORDERABLES Final R esult Performing Organization Address [facility] de Phone Number [address] [address] * (ABNORMAL) Basic metabolic panel (04/16/2019 6:45 AM CDT) [facility] Sodium 140 135 - 145 mmol/L [facility] Potassium, pl 3.5 3.3 - 4.9 mmol/L [facility] Chloride 113(H) 97 - 110 mmol/L [facility] CO2 21(L) 22 - 32 mmol/L [facility] Anion gap 6 2 - 15 mmol/L [facility] BUN 12 8 - 25 mg/dL [facility] Creatinine 0.68 0.60 - 1.10 mg/dL [facility] Glucose 81 70 - 199 mg/dL [facility] Comment: Interpretive Data Fasting glucose >/= [...] interpretive data was last revised 2017. Calcium 8.2(L) 8.5 - 10.3 mg/dL [facility] Blood specimen (specimen) 04/16/2019 6:45 AM CDT 04/16/2019 7:47 AM CDT us Greyson Reeves MD LAB BLOOD ORDERABLES Final R esult [facility] [address] [place] [address] * (ABNORMAL) Basic metabolic panel (04/15/2019 9:26 PM CDT) Sodium 141 135 - 145 mmol/L [facility] Potassium, pl 3.8 3.3 - 4.9 mmol/L [facility] Chloride 114(H) 97 - 110 mmol/L [facility] CO2 22 22 - 32 mmol/L [facility] Anion gap 5 2 - 15 mmol/L [facility] BUN 14 8 - 25 mg/dL [facility] Creatinine 0.74 0.60 - 1.10 mg/dL [facility] Glucose 90 70 - 199 mg/dL [facility] Comment: Interpretive Data Fasting glucose >/= [...] 2017. Calcium 8.5 8.5 - 10.3 mg/dL [facility] Blood specimen (specimen) 04/15/2019 9:26 PM CDT 04/15/2019 10:52 PM CDT Greyson Reeves MD LAB BLOOD ORDERABLES Final R esult Performing Organization Address City/[facility]/ZIP Co de Phone Number [address] [address] * Phosphorus (04/15/2019 9:26 PM CDT) Pathologist [facility] Phosphorus, pl 2.3 2.3 - 4.5 mg/dL [facility] Blood specimen (specimen) 04/15/2019 9:26 PM CDT 04/15/2019 10:52 PM CDT Greyson Reeves MD LAB BLOOD ORDERABLES Final R esult Performing Organization Address [facility] de Phone Number [address] [address] * Magnesium (04/15/2019 9:26 PM CDT) [facility] Magnesium 1.7 1.4 - 2.5 mg/dL [facility] Blood specimen (specimen) 04/15/2019 9:26 PM CDT 04/15/2019 10:52 PM CDT Greyson Reeves MD LAB BLOOD ORDERABLES [facility] Performing Organization Address [facility] de Phone Number [address] [address] * (ABNORMAL) CBC without differential (04/15/2019 9:26 PM CDT) [facility] WBC 3.8 3.8 - 9.9 K/cumm [facility] Hgb 8.0(L) 11.9 - 15.5 g/dL [facility] Hct 23.8(L) 35.6 - 45.5 % [facility] Plt 84(L) 150 - 400 K/cumm [facility] MPV 11.0 9.1 - 12.3 fL [facility] RBC 2.53(L) 3.90 - 5.20 M/cumm [facility] MCV 94.1 81.3 - 96.4 fL [facility] MCH 31.6 27.1 - 33.3 pg [facility] MCHC 33.6 32.3 - 35.7 g/dL [facility] RDW CV 14.1 11.1 - 14.9 % [facility] RDW SD 48.1 35.7 - 48.1 fL [facility] NRBC abs 0.00 0.00 - 0.01 K/cumm [facility] Blood specimen (specimen) 04/15/2019 9:26 PM CDT 04/15/2019 10:32 PM CDT Greyson Reeves MD LAB BLOOD ORDERABLES Final R esult Performing Organization Address [facility] Co de Phone Number [address] [address] * Calcium, ionized (04/15/2019 9:26 PM CDT) Calcium, Ionized 4.79 4.50 - 5.10 mg/dL [facility] Blood specimen (specimen) 04/15/2019 9:26 PM CDT 04/15/2019 10:32 PM CDT Greyson Reeves MD LAB BLOOD ORDERABLES Final R esult Performing Organization Address [facility] Co de Phone Number [address] [address] * Calcium, ionized (04/15/2019 8:14 PM CDT) Calcium, Ionized 4.71 4.50 - 5.10 mg/dL [facility] Blood specimen (specimen) 04/15/2019 8:14 PM CDT 04/15/2019 9:12 PM CDT Greyson Reeves MD LAB BLOOD ORDERABLES Final R esult Performing Organization Address City/[facility] Co de Phone Number [address] [place] [address] * (ABNORMAL) Calcium, ionized (04/15/2019 1:45 PM CDT) Calcium, Ionized 5.32(H) 4.50 - 5.10 mg/dL [facility] Blood specimen (specimen) 04/15/2019 1:45 PM CDT 04/15/2019 2:28 PM CDT Greyson Reeves MD LAB BLOOD ORDERABLES Final R esult [facility] [address] [place] [address] * (ABNORMAL) Basic metabolic panel (04/15/2019 5:20 AM CDT) Pathologist [facility] Sodium 140 135 - 145 mmol/L [facility] Potassium, pl 3.8 3.3 - 4.9 mmol/L [facility] Chloride 110 97 - 110 mmol/L [facility] CO2 23 22 - 32 mmol/L [facility] Anion gap 7 2 - 15 mmol/L [facility] BUN 17 8 - 25 mg/dL [facility] Creatinine 0.89 0.60 - 1.10 mg/dL [facility] Glucose 112 70 - 199 mg/dL [facility] Comment: Interpretive Data Fasting glucose >/= [...] interpretive data was last revised 2017. Calcium 8.0(L) 8.5 - 10.3 mg/dL [facility] Blood specimen (specimen) 04/15/2019 5:20 AM CDT 04/15/2019 5:43 AM CDT us Neto Moss MD LAB BLOOD ORDE RABLES Final Result Performing Organization Address [facility] Co de Phone Number [address] [address] * (ABNORMAL) CBC without differential (04/15/2019 5:16 AM CDT) WBC 4.2 3.8 - 9.9 K/cumm [facility] Hgb 8.5(L) 11.9 - 15.5 g/dL [facility] Hct 26.1(L) 35.6 - 45.5 % [facility] Plt 88(L) 150 - 400 K/cumm [facility] MPV 10.7 9.1 - 12.3 fL [facility] RBC 2.74(L) 3.90 - 5.20 M/cumm [facility] MCV 95.3 81.3 - 96.4 fL [facility] MCH 31.0 27.1 - 33.3 pg [facility] MCHC 32.6 32.3 - 35.7 g/dL [facility] RDW CV 14.6 11.1 - 14.9 % [facility] RDW SD 49.8(H) 35.7 - 48.1 fL [facility] NRBC abs 0.00 0.00 - 0.01 K/cumm [facility] Blood specimen (specimen) 04/15/2019 5:16 AM CDT 04/15/2019 5:43 AM CDT Greyson Reeves MD LAB BLOOD ORDERABLES Final R esult Performing Organization Address [facility]/ZIP Co de Phone Number [facility] [address] [place] [address] * Calcium, ionized (04/15/2019 5:11 AM CDT) Calcium, Ionized 4.59 4.50 - 5.10 mg/dL [facility] Blood specimen (specimen) 04/15/2019 5:11 AM CDT 04/15/2019 5:43 AM CDT us Greyson Reeves MD LAB BLOOD ORDERABLES Final R esult [facility] [address] [place] [address] * XR Abdomen Ap 1 Vw (04/15/2019 4:21 AM CDT) Anatomical Region Laterality Modality Body, Abdomen N/A Computed Radiogr aphy 04/15/2019 8:20 AM CDT Impressions 04/15/2019 8:20 AM CDT Distal end of nasogastric tube within the gastric body, tip directed at the gastric fundus. Electronically signed by: Aileen Rowe M.D. Narrative 04/15/2019 8:20 AM CDT EXAMINATION: Abdomen single view HISTORY: NG tube placement FINDINGS: No prior abdominal radiographs are available for comparison. The tip of the nasogastric tube is a redundant course within the mid to distal body of the stomach and the tip is directed towards the gastric fundus. Midline surgical skin mary are present. Overall, there is a paucity of bowel gas. There are 2 calcifications overlying the pubic symphysis which on CT examination correspond to calcifications within a urethral diverticulum. Procedure Note Aileen Rowe MD PhD - 04/15/2019 EXAMINATION: Abdomen single view HISTORY: NG tube placement FINDINGS: No prior abdominal radiographs are available for comparison. The tip of the nasogastric tube is a redundant course within the mid to distal body of the stomach and the tip is directed towards the gastric fundus. Midline surgical skin mary are present. Overall, there is a paucity of bowel gas. There are 2 calcifications overlying the pubic symphysis which on CT examination correspond to calcifications within a urethral diverticulum. IMPRESSION: Distal end of nasogastric tube within the gastric body, tip directed at the gastric fundus. Electronically signed by: Aileen Rowe M.D. us Greyson Reeves MD IMG XR PROCEDURES Final Resu lt * (ABNORMAL) Basic metabolic panel (04/14/2019 11:18 PM CDT) Sodium 139 135 - 145 mmol/L [facility] Potassium, pl 3.8 3.3 - 4.9 mmol/L [facility] Chloride 110 97 - 110 mmol/L [facility] CO2 22 22 - 32 mmol/L [facility] Anion gap 7 2 - 15 mmol/L [facility] BUN 18 8 - 25 mg/dL [facility] Creatinine 1.02 0.60 - 1.10 mg/dL [facility] Glucose 121 70 - 199 mg/dL [facility] Comment: Interpretive Data Fasting glucose >/= [...] interpretive data was last revised 2017. Calcium 7.0(L) 8.5 - 10.3 mg/dL [facility] Blood specimen (specimen) 04/14/2019 11:18 PM CDT 04/14/2019 11:37 PM CDT Greyson Reeves MD LAB BLOOD ORDERABLES Final R esult Performing Organization Address [facility]/ZIP Co de Phone Number [address] [address] * (ABNORMAL) Calcium, ionized (04/14/2019 11:18 PM CDT) [facility] Calcium, Ionized 3.96(L) 4.50 - 5.10 mg/dL [facility] Blood specimen (specimen) 04/14/2019 11:18 PM CDT 04/14/2019 11:37 PM CDT Greyson Reeves MD LAB BLOOD ORDERABLES Final R esult Performing Organization Address City/[facility] Co de Phone Number [address] [address] * (ABNORMAL) Vitamin D 25 hydroxy (04/14/2019 11:18 PM CDT) [facility] Vitamin D 25-OH 22(L) 30 - 80 ng/mL [facility] Blood specimen (specimen) 04/14/2019 11:18 PM CDT 04/14/2019 11:37 PM CDT Greyson Reeves MD LAB BLOOD ORDERABLES Final R esult Performing Organization Address City/[facility]/ZIP Co de Phone Number [address] [address] * (ABNORMAL) PTH (04/14/2019 11:18 PM CDT) [facility] PTH 554(H) 15 - 65 pg/mL [facility] Blood specimen (specimen) 04/14/2019 11:18 PM CDT 04/14/2019 11:38 PM CDT Greyson Reeves MD LAB BLOOD ORDERABLES Final R esult Performing Organization Address [facility] Co de Phone Number [address] [address] * (ABNORMAL) Phosphorus (04/14/2019 11:18 PM CDT) [facility] Phosphorus, pl 2.2(L) 2.3 - 4.5 mg/dL [facility] Blood specimen (specimen) 04/14/2019 11:18 PM CDT 04/14/2019 11:37 PM CDT Greyson Reeves MD LAB BLOOD ORDERABLES Final R esult Performing Organization Address [facility] Co de Phone Number [address] [address] * Magnesium (04/14/2019 11:18 PM CDT) [facility] Magnesium 2.2 1.4 - 2.5 mg/dL [facility] Blood specimen (specimen) 04/14/2019 11:18 PM CDT 04/14/2019 11:37 PM CDT Greyson Reeves MD LAB BLOOD ORDERABLES Final R esult Performing Organization Address City/[facility]/ZIP Co de Phone Number [address] [address] * (ABNORMAL) CBC without differential (04/14/2019 11:18 PM CDT) [facility] WBC 4.8 3.8 - 9.9 K/cumm [facility] Hgb 8.4(L) 11.9 - 15.5 g/dL [facility] Hct 25.3(L) 35.6 - 45.5 % [facility] Plt 93(L) 150 - 400 K/cumm [facility] MPV 10.7 9.1 - 12.3 fL [facility] RBC 2.76(L) 3.90 - 5.20 M/cumm [facility] MCV 91.7 81.3 - 96.4 fL [facility] MCH 30.4 27.1 - 33.3 pg [facility] MCHC 33.2 32.3 - 35.7 g/dL [facility] RDW CV 14.5 11.1 - 14.9 % [facility] RDW SD 48.0 35.7 - 48.1 fL [facility] NRBC abs 0.00 0.00 - 0.01 K/cumm [facility] Blood specimen (specimen) 04/14/2019 11:18 PM CDT 04/14/2019 11:37 PM CDT Greyson Reeves MD LAB BLOOD ORDERABLES Final R esult Performing Organization Address City/[facility]/ZIP Co de Phone Number [address] [address] * aPTT (04/14/2019 5:12 PM CDT) [facility] aPTT 29.7 25.0 - 37.0 sec [facility] Comment: Interpretive Data Therapeutic heparin range:60.0 - 94.0 sec based on correlation with therapeutic heparin activity range of 0.3 -0.7 Units/mL. Current interpretive data was last revised on 2011. Blood specimen (specimen) 04/14/2019 5:12 PM CDT 04/14/2019 6:33 PM CDT us Greyson Reeves MD LAB BLOOD ORDERABLES Final R esult [facility] [address] [place] [address] * (ABNORMAL) Protime-INR (04/14/2019 5:12 PM CDT) Pathologist [facility] PT 15.0(H) 8.6 - 13.0 sec [facility] INR 1.38(H) 0.80 - 1.20 [facility] Comment: Interpretive Data Inpatient therapeutic ranges* Atrial fibrillation ?2.0-3.0 INR Venous thrombo-embolism ?2.0-3.0 INR Bioprosthetic heart valve ?* Mechanical heart valve, bileaflet or tilting disk,aortic position ? 2.0-3.0 INR All other,or bileaflet or tilting disk, in mitral position ? 2.5-3.5 INR *See the pharmacy resource directory (PHRED) for an updated copy of the Tool Book at [email or web address] Current Interpretive Data was last revised 2011. Blood specimen (specimen) 04/14/2019 5:12 PM CDT 04/14/2019 6:33 PM CDT Greyson Reeves MD LAB BLOOD ORDERABLES Final R esult Performing Organization Address [facility] Co de Phone Number [address] [address] * (ABNORMAL) Calcium, ionized (04/14/2019 4:36 PM CDT) Pathologist [facility] Calcium, Ionized 3.49(L) 4.50 - 5.10 mg/dL [facility] Blood specimen (specimen) 04/14/2019 4:36 PM CDT 04/14/2019 5:23 PM CDT Greyson Reeves MD LAB BLOOD ORDERABLES Final R esult Performing Organization Address [facility] de Phone Number [address] [address] * Phosphorus (04/14/2019 4:36 PM CDT) Pathologist [facility] Phosphorus, pl 2.7 2.3 - 4.5 mg/dL [facility] Blood specimen (specimen) 04/14/2019 4:36 PM CDT 04/14/2019 5:23 PM CDT Greyson Reeves MD LAB BLOOD ORDERABLES Final R esult Performing Organization Address [facility] Co de Phone Number [address] [address] * (ABNORMAL) CBC without differential (04/14/2019 4:36 PM CDT) Pathologist [facility] WBC 5.7 3.8 - 9.9 K/cumm [facility] Hgb 10.6(L) 11.9 - 15.5 g/dL [facility] Hct 32.4(L) 35.6 - 45.5 % [facility] Plt 106(L) 150 - 400 K/cumm [facility] MPV 10.6 9.1 - 12.3 fL [facility] RBC 3.41(L) 3.90 - 5.20 M/cumm [facility] MCV 95.0 81.3 - 96.4 fL [facility] MCH 31.1 27.1 - 33.3 pg [facility] MCHC 32.7 32.3 - 35.7 g/dL [facility] RDW CV 14.5 11.1 - 14.9 % [facility] RDW SD 50.3(H) 35.7 - 48.1 fL [facility] NRBC abs 0.00 0.00 - 0.01 K/cumm [facility] Blood specimen (specimen) 04/14/2019 4:36 PM CDT 04/14/2019 5:17 PM CDT Greyson Reeves MD LAB BLOOD ORDERABLES Final R esult Performing Organization Address [facility] Co de Phone Number [address] [address] * Magnesium (04/14/2019 4:36 PM CDT) Pathologist [facility] Magnesium 2.3 1.4 - 2.5 mg/dL [facility] Blood specimen (specimen) 04/14/2019 4:36 PM CDT 04/14/2019 5:23 PM CDT Greyson Reeves MD LAB BLOOD ORDERABLES Final R esult Performing Organization Address [facility] de Phone Number [address] [address] * (ABNORMAL) Comprehensive metabolic panel (04/14/2019 4:36 PM CDT) Sodium 140 135 - 145 mmol/L [facility] Potassium, pl 4.3 3.3 - 4.9 mmol/L [facility] Chloride 112(H) 97 - 110 mmol/L [facility] CO2 18(L) 22 - 32 mmol/L [facility] Anion gap 10 2 - 15 mmol/L [facility] BUN 17 8 - 25 mg/dL [facility] Creatinine 1.07 0.60 - 1.10 mg/dL [facility] Glucose 118 70 - 199 mg/dL [facility] Comment: Interpretive Data Fasting glucose >/= [...] interpretive data was last revised 2017. Calcium 6.8(L) 8.5 - 10.3 mg/dL [facility] Bilirubin, total 1.1 0.1 - 1.2 mg/dL [facility] Protein, pl 5.5(L) 6.5 - 8.5 g/dL [facility] Albumin 2.7(L) 3.5 - 5.0 g/dL [facility] Alk phos 66 40 - 130 Units/L [facility] ALT 13 7 - 45 Units/L [facility] AST 37 10 - 45 Units/L [facility] Blood specimen (specimen) 04/14/2019 4:36 PM CDT 04/14/2019 5:23 PM CDT Greyson Reeves MD LAB BLOOD ORDERABLES Final R [facility] [address] [place] [address] * Sodium, urine, random (04/14/2019 1:52 PM CDT) Sodium, ur 34 mmol/L [facility] Comment: Interpretive Data No reference range established. Current interpretive data was last revised 2018. Urine 04/14/2019 1:52 PM CDT 04/14/2019 2:41 PM CDT Greyson Reeves MD LAB URINE ORDERABLES Final R esult Performing Organization Address [facility] Co de Phone Number JASON BLACK [address] [place] [address] * Creatinine, urine, random (04/14/2019 1:52 PM CDT) Creatinine Ur 294.6 mg/dL [facility] Comment: Interpretive Data No reference range established. Current interpretive data was last revised 2018. Urine 04/14/2019 1:52 PM CDT 04/14/2019 2:41 PM CDT us Greyson Reeves MD LAB URINE ORDERABLES Final R esult Performing Organization Address [facility] de Phone Number JASON [facility] [address] [place] [address] * Prepare RBC: 2 Units (04/14/2019 12:14 PM CDT) Product code [id number] [facility] Unit Number [id number] 3-S [facility] Product Blood Type APOS [facility] Dispense Status RETURNED [facility] Product code [id number] [facility] Unit Number [id number] 5-B [facility] Product Blood Type APOS [facility] Dispense Status RETURNED [facility] Blood specimen (specimen) 04/14/2019 12:14 PM CDT 04/14/2019 12:15 PM CDT Narrative [facility] - 04/15/2019 8:53 AM CDT Other indication->concern for post-surgical bleeding Are special requirements needed? (all products are leukoreduced)->No Date required:-[id number] LRRBC # of [id number] Reasons:-Other (specify)} us Greyson Reeves MD BLOOD BANK PRODUCT ORDERABLE S Final Result Performing Organization Address [facility] de Phone Number JASON BLACK [address] [place] [address] * Critical Result Callback Chemistry (04/14/2019 9:17 AM CDT) Date Notified [id number] [facility] Time Notified 1120 J[facility]ON [facility] TestName Calcium JAOSN BLACK Called/Read Back Jane GOME[facility] Credentials RN JASON BLACK Called By nora BLACK Blood specimen (specimen) 04/14/2019 9:17 AM CDT 04/14/2019 10:52 AM CDT Greyson Reeves MD LAB BLOOD ORDERABLES Final R esult Performing Organization Address City/[facility] Co de Phone Number [address] [address] * Troponin I (04/14/2019 9:17 AM CDT) [facility] Troponin I <0.03 0.00 - 0.03 ng/mL [facility] Comment: Interpretive Data: Normal plasma Troponin I concentrations can reach 1 ng/mL in the first two weeks of life and slowly decrease to adult levels (<0.03 ng/mL) by the age of 3 months. > 3 months ??<0.03 ng/mL > or = 18 years Serial determinations are recommended for the diagnosis of myocardial infarction. ??Temporal rise and fall are consistent with myocardial infarction when at least one value is above the 99th percentile upper reference limit for Troponin assay. References: 1. Clin Chem 2013;59:7383-5291 2. Journal of the [place] [employer] 2012;60:1581-98 Current Interpretive Data Last Revised Date: 2018. Blood specimen (specimen) 04/14/2019 9:17 AM CDT 04/14/2019 10:52 AM CDT Greyson Reeves MD LAB BLOOD ORDERABLES Final R esult Performing Organization Address [facility]/ZIP Co de Phone Number [address] [address] * Phosphorus (04/14/2019 9:17 AM CDT) Pathologist [facility] Phosphorus, pl 2.5 2.3 - 4.5 mg/dL [facility] Blood specimen (specimen) 04/14/2019 9:17 AM CDT 04/14/2019 10:52 AM CDT Greyson Reeves MD LAB BLOOD ORDERABLES Final R esult Performing Organization Address City/[facility] Co de Phone Number [address] [address] * Magnesium (04/14/2019 9:17 AM CDT) [facility] Magnesium 1.6 1.4 - 2.5 mg/dL [facility] Blood specimen (specimen) 04/14/2019 9:17 AM CDT 04/14/2019 10:52 AM CDT Greyson Reeves MD LAB BLOOD ORDERABLES Final R [facility] Performing Organization Address [facility] de Phone Number [address] [address] * (ABNORMAL) CBC without differential (04/14/2019 9:17 AM CDT) [facility] WBC 5.9 3.8 - 9.9 K/cumm [facility] Hgb 10.1(L) 11.9 - 15.5 g/dL [facility] Hct 30.2(L) 35.6 - 45.5 % [facility] Plt 119(L) 150 - 400 K/cumm [facility] MPV 11.1 9.1 - 12.3 fL [facility] RBC 3.33(L) 3.90 - 5.20 M/cumm [facility] MCV 90.7 81.3 - 96.4 fL [facility] MCH 30.3 27.1 - 33.3 pg [facility] MCHC 33.4 32.3 - 35.7 g/dL [facility] RDW CV 14.3 11.1 - 14.9 % [facility] RDW SD 47.1 35.7 - 48.1 fL [facility] NRBC abs 0.00 0.00 - 0.01 K/cumm [facility] Blood specimen (specimen) 04/14/2019 9:17 AM CDT 04/14/2019 10:53 AM CDT Greyson Reeves MD LAB BLOOD ORDERABLES Final R [facility] Performing Organization Address [facility] de Phone Number [address] [address] * (ABNORMAL) Calcium, ionized (04/14/2019 9:17 AM CDT) Pathologist [facility] Calcium, Ionized 3.66(L) 4.50 - 5.10 mg/dL [facility] Blood specimen (specimen) 04/14/2019 9:17 AM CDT 04/14/2019 10:52 AM CDT Greyson Reeves MD LAB BLOOD ORDERABLES Final R esult Performing Organization Address [facility] de Phone Number [address] [address] * (ABNORMAL) Basic metabolic panel (04/14/2019 9:17 AM CDT) [facility] Sodium 142 135 - 145 mmol/L [facility] Potassium, pl 3.9 3.3 - 4.9 mmol/L [facility] Chloride 110 97 - 110 mmol/L [facility] CO2 23 22 - 32 mmol/L [facility] Anion gap 9 2 - 15 mmol/L [facility] BUN 15 8 - 25 mg/dL [facility] Creatinine 1.19(H) 0.60 - 1.10 mg/dL [facility] Glucose 133 70 - 199 mg/dL [facility] Comment: Interpretive Data Fasting glucose >/= [...] interpretive data was last revised 2017. Calcium 6.4(C) 8.5 - 10.3 mg/dL [facility] Blood specimen (specimen) 04/14/2019 9:17 AM CDT 04/14/2019 10:52 AM CDT Greyson Reeves MD LAB BLOOD ORDERABLES Final R esult Performing Organization Address [facility] de Phone Number [address] [address] * Troponin I (04/14/2019 6:50 AM CDT) Pathologist [facility] Troponin I <0.03 0.00 - 0.03 ng/mL [facility] Comment: Interpretive Data: Normal plasma Troponin I concentrations can reach 1 ng/mL in the first two weeks of life and slowly decrease to adult levels (<0.03 ng/mL) by the age of 3 months. > 3 months ??<0.03 ng/mL > or = 18 years Serial determinations are recommended for the diagnosis of myocardial infarction. ??Temporal rise and fall are consistent with myocardial infarction when at least one value is above the 99th percentile upper reference limit for Troponin assay. References: 1. Clin Chem 2013;59:6141-6356 2. Journal of the [place] [employer] 2012;60:1581-98 Current Interpretive Data Last Revised Date: 2018. Blood specimen (specimen) 04/14/2019 6:50 AM CDT 04/14/2019 7:54 AM CDT Greyson Reeves MD LAB BLOOD ORDERABLES Final R esult Performing Organization Address [facility] Co de Phone Number [address] [address] * (ABNORMAL) Calcium, ionized (04/14/2019 5:21 AM CDT) Pathologist [facility] Calcium, Ionized 3.36(L) 4.50 - 5.10 mg/dL [facility] Blood specimen (specimen) 04/14/2019 5:21 AM CDT 04/14/2019 5:51 AM CDT Greyson Reeves MD LAB BLOOD ORDERABLES Final R esult Performing Organization Address City/[facility]/ZIP Co de Phone Number [facility] [address] [place] [address] * ECG 12 lead (04/14/2019 4:21 AM CDT) Pathologist [facility] Ventricular Rate EKG/Min 130 BPM [facility] Atrial Rate 130 BPM [facility] IA-Interval (MSEC) 120 ms [facility] QRS-Interval (MSEC) 84 ms [facility] QT-Interval (MSEC) 312 ms [facility] QTc 459 ms [facility] P [place] -27 degrees [facility] R [place] 20 degrees [facility] T [place] 4 degrees [facility] Diagnosis Sinus tachycardia Poor precordial R wave progression consistent with faulty lead placement ,copd, anterior infarction, etc. Anterior infarct (cited on or before 14-APR-2019) Abnormal ECG When compared with ECG of 14-APR-2019 04:21, (unconfirmed) No significant change was found Confirmed by PIPER WILSON M.D ([id number]) on 04/14/2019 4:33:58 PM [facility] 04/14/2019 4:21 AM CDT 04/14/2019 4:33 PM CDT us Greyson Reeves MD ECG ORDERABLES Final Result Performing Organization Address City/[facility]/ZIP Co de Phone Number [facility] * (ABNORMAL) Albumin (04/14/2019 1:45 AM CDT) Pathologist [facility] Albumin 3.0(L) 3.5 - 5.0 g/dL [facility] Blood specimen (specimen) 04/14/2019 1:45 AM CDT 04/14/2019 2:21 AM CDT Greyson Reeves MD LAB BLOOD ORDERABLES Final R esult Performing Organization Address City/[facility] Co de Phone Number JASON BLACK [address] [place] [address] * Critical Result Callback Chemistry (04/14/2019 1:45 AM CDT) Date Notified 20190414 [facility] Time Notified [address] [facility] TestName Calcium JASON BLACK Called/Read Back Kathy Banker [facility] Credentials RN [facility] Called By bekerry [facility] Blood specimen (specimen) 04/14/2019 1:45 AM CDT 04/14/2019 2:21 AM CDT Greyson Reeves MD LAB BLOOD ORDERABLES Final R esult Performing Organization Address [facility] de Phone Number JASON BLACK[address] [address] * (ABNORMAL) Basic metabolic panel (04/14/2019 1:45 AM CDT) Sodium 138 135 - 145 mmol/L [facility] Potassium, pl 4.4 3.3 - 4.9 mmol/L [facility] Chloride 111(H) 97 - 110 mmol/L [facility] CO2 20(L) 22 - 32 mmol/L [facility] Anion gap 7 2 - 15 mmol/L [facility] BUN 11 8 - 25 mg/dL [facility] Creatinine 0.86 0.60 - 1.10 mg/dL [facility] Glucose 157 70 - 199 mg/dL [facility] Comment: Interpretive Data Fasting glucose >/= [...] interpretive data was last revised 2017. Calcium 6.4(C) 8.5 - 10.3 mg/dL [facility] Blood specimen (specimen) 04/14/2019 1:45 AM CDT 04/14/2019 2:21 AM CDT us Greyson Reeves MD LAB BLOOD ORDERABLES Final R esult [facility] [address] [place] [address] * (ABNORMAL) Differential, auto (04/14/2019 1:45 AM CDT) Neutrophil abs 5.1 1.7 - 6.5 K/cumm [facility] Imm gran abs 0.0 0.0 - 0.1 K/cumm [facility] Lymphocyte abs 0.3(L) 0.8 - 3.3 K/cumm [facility] Monocyte abs 0.9(H) 0.2 - 0.8 K/cumm [facility] Eosinophil abs 0.0 0.0 - 0.5 K/cumm [facility] Basophil abs 0.0 0.0 - 0.1 K/cumm [facility] Neutrophil pct 80.6 % [facility] Comment: Confirmed by smear review Interpretive Data Percent cell count reference ranges are not reported, since discordance with absolute values may lead to misinterpretation of CBC data. Current Interpretive Data was last revised on 2017. Imm gran pct 0.2 % [facility] Comment: Interpretive Data Percent cell count reference ranges are not reported, since discordance with absolute values may lead to misinterpretation of CBC data. Current Interpretive Data was last revised on 2017. Lymphocyte pct 4.3 % [facility] Comment: Interpretive Data Percent cell count reference ranges are not reported, since discordance with absolute values may lead to misinterpretation of CBC data. Current Interpretive Data was last revised on 2017. Monocyte pct 14.6 % [facility] Comment: Interpretive Data Percent cell count reference ranges are not reported, since discordance with absolute values may lead to misinterpretation of CBC data. Current Interpretive Data was last revised on 2017. Eosinophil pct 0.0 % [facility] Comment: Interpretive Data Percent cell count reference ranges are not reported, since discordance with absolute values may lead to misinterpretation of CBC data. Current Interpretive Data was last revised on 2017. Basophil pct 0.3 % [facility] Comment: Interpretive Data Percent cell count reference ranges are not reported, since discordance with absolute values may lead to misinterpretation of CBC data. Current Interpretive Data was last revised on 2017. Blood specimen (specimen) 04/14/2019 1:45 AM CDT 04/14/2019 2:21 AM CDT Katarina Hall NP LAB BLOOD ORDERABLES Final Res ult Performing Organization Address [facility] Co de Phone Number [address] [address] * (ABNORMAL) Phosphorus (04/14/2019 1:45 AM CDT) Phosphorus, pl 1.6(L) 2.3 - 4.5 mg/dL [facility] Blood specimen (specimen) 04/14/2019 1:45 AM CDT 04/14/2019 2:21 AM CDT Greyson Reeves MD LAB BLOOD ORDERABLES Final R esult Performing Organization Address [facility] Co de Phone Number [address] [address] * Magnesium (04/14/2019 1:45 AM CDT) Magnesium 1.8 1.4 - 2.5 mg/dL [facility] Blood specimen (specimen) 04/14/2019 1:45 AM CDT 04/14/2019 2:21 AM CDT Greyson Reeves MD LAB BLOOD ORDERABLES Final R esult Performing Organization Address [facility] de Phone Number [address] [address] * (ABNORMAL) CBC with auto differential (04/14/2019 1:45 AM CDT) [facility] WBC 6.3 3.8 - 9.9 K/cumm [facility] Hgb 12.2 11.9 - 15.5 g/dL [facility] Hct 37.5 35.6 - 45.5 % [facility] Plt 145(L) 150 - 400 K/cumm [facility] MPV 10.5 9.1 - 12.3 fL [facility] RBC 3.96 3.90 - 5.20 M/cumm [facility] MCV 94.7 81.3 - 96.4 fL [facility] MCH 30.8 27.1 - 33.3 pg [facility] MCHC 32.5 32.3 - 35.7 g/dL [facility] RDW CV 14.2 11.1 - 14.9 % [facility] RDW SD 48.6(H) 35.7 - 48.1 fL [facility] NRBC abs 0.00 0.00 - 0.01 K/cumm [facility] Blood specimen (specimen) 04/14/2019 1:45 AM CDT 04/14/2019 2:21 AM CDT us Greyson Reeves MD LAB BLOOD ORDERABLES Final R esult Performing Organization Address [facility] Co de Phone Number [facility] [address] [place] [address] * aPTT (04/12/2019 9:48 PM CDT) [facility] aPTT 26.3 25.0 - 37.0 sec [facility] Comment: Interpretive Data Therapeutic heparin range:60.0 - 94.0 sec based on correlation with therapeutic heparin activity range of 0.3 -0.7 Units/mL. Current interpretive data was last revised on 2011. Blood specimen (specimen) 04/12/2019 9:48 PM CDT 04/12/2019 10:22 PM CDT Woodrow Cerna MD LAB BLOOD ORDERABLES Final Res ult Performing Organization Address [facility] de Phone Number JASON [address] [address] * Protime-INR (04/12/2019 9:48 PM CDT) Pathologist [facility] PT 11.3 8.6 - 13.0 sec [facility] INR 1.05 0.80 - 1.20 [facility] Comment: Interpretive Data Inpatient therapeutic ranges* Atrial fibrillation ?2.0-3.0 INR Venous thrombo-embolism ?2.0-3.0 INR Bioprosthetic heart valve ?* Mechanical heart valve, bileaflet or tilting disk,aortic position ? 2.0-3.0 INR All other,or bileaflet or tilting disk, in mitral position ? 2.5-3.5 INR *See the pharmacy resource directory (PHRED) for an updated copy of the Tool Book at [email or web address] Current Interpretive Data was last revised 2011. Blood specimen (specimen) 04/12/2019 9:48 PM CDT 04/12/2019 10:22 PM CDT Woodrow Cerna MD LAB BLOOD ORDERABLES Final Res ult Performing Organization Address [facility] de Phone Number JASON BLACK [address] [place] [address] * Type and screen (04/12/2019 9:48 PM CDT) Pathologist [facility] Yolande, indirect Negative [facility] ABO Rh AB Positive [facility] Blood specimen (specimen) 04/12/2019 9:48 PM CDT 04/12/2019 10:24 PM CDT Narrative [facility] - 04/12/2019 11:12 PM CDT Has the patient had Daratumumab (Darzalex) in the past 6 months?->Unknown Woodrow Cerna MD LAB BLOOD BANK TEST ORDERABLES Final Result Performing Organization Address [facility] Co de Phone Number [address] [address] * (ABNORMAL) Phosphorus (04/12/2019 9:48 PM CDT) [facility] Phosphorus, pl 1.2(L) 2.3 - 4.5 mg/dL [facility] Blood specimen (specimen) 04/12/2019 9:48 PM CDT 04/12/2019 10:25 PM CDT Woodrow Cerna MD LAB BLOOD ORDERABLES Final Res ult Performing Organization Address [facility] de Phone Number [address] [address] * Magnesium (04/12/2019 9:48 PM CDT) [facility] Magnesium 2.1 1.4 - 2.5 mg/dL [facility] Blood specimen (specimen) 04/12/2019 9:48 PM CDT 04/12/2019 10:25 PM CDT Woodrow Cerna MD LAB BLOOD ORDERABLES Final Res ult Performing Organization Address [facility] Co de Phone Number [address] [address] * (ABNORMAL) CBC without differential (04/12/2019 9:48 PM CDT) [facility] WBC 5.0 3.8 - 9.9 K/cumm [facility] Hgb 13.6 11.9 - 15.5 g/dL [facility] Hct 40.9 35.6 - 45.5 % [facility] Plt 130(L) 150 - 400 K/cumm [facility] MPV 10.3 9.1 - 12.3 fL [facility] RBC 4.49 3.90 - 5.20 M/cumm [facility] MCV 91.1 81.3 - 96.4 fL [facility] MCH 30.3 27.1 - 33.3 pg [facility] MCHC 33.3 32.3 - 35.7 g/dL [facility] RDW CV 14.3 11.1 - 14.9 % [facility] RDW SD 46.8 35.7 - 48.1 fL [facility] NRBC abs 0.00 0.00 - 0.01 K/cumm [facility] Blood specimen (specimen) 04/12/2019 9:48 PM CDT 04/12/2019 10:24 PM CDT us Woodrow Cerna MD LAB BLOOD ORDERABLES Final Res ult [facility] [address] [place] [address] * (ABNORMAL) Basic metabolic panel (04/12/2019 9:48 PM CDT) Sodium 139 135 - 145 mmol/L [facility] Potassium, pl 3.9 3.3 - 4.9 mmol/L [facility] Chloride 108 97 - 110 mmol/L [facility] CO2 24 22 - 32 mmol/L [facility] Anion gap 7 2 - 15 mmol/L [facility] BUN 16 8 - 25 mg/dL [facility] Creatinine 0.83 0.60 - 1.10 mg/dL [facility] Glucose 155 70 - 199 mg/dL [facility] Comment: Interpretive Data Fasting glucose >/= [...] interpretive data was last revised 2017. Calcium 8.0(L) 8.5 - 10.3 mg/dL [facility] Blood specimen (specimen) 04/12/2019 9:48 PM CDT 04/12/2019 10:25 PM CDT us Woodrow Cerna MD LAB BLOOD ORDERABLES Final Res ult JASON BLACK [address] [place] [address] * CT Body Outside Consult (04/12/2019 5:22 AM CDT) Anatomical Region Laterality Modality Body N/A Computed Tomogra phy 04/12/2019 1:12 PM CDT Impressions 04/12/2019 1:12 PM CDT 1. Colonic obstruction with focal transition point at the level of the rectosigmoid junction. At this level there is tethering of loops of bowel. I would favor that this represents an obstruction secondary to a metastatic implant with associated desmoplastic reaction over changes from prior colitis. 2. Stable metastatic disease to the liver, undersurface of the diaphragm retroperitoneum, retroperitoneum and vaginal cuff. The findings, conclusions and recommendations within this report do not replace the initial findings, conclusions ??and recommendations made at the facility where the study was performed based upon the imaging and clinical condition at that time. ??Comparison with the prior report and clinical history is necessary. ??The provided images may or may not represent the [place] source data set and thus may contain changes that may lower the accuracy of this second-opinion interpretation. Electronically signed by: Chalino Abernathy M.D., MPH Narrative 04/12/2019 1:12 PM CDT EXAMINATION: RADIOLOGY CONSULTATION ON OUTSIDE IMAGING STUDY STUDY INITIALLY PERFORMED: 04/11/2019 at [facility]. TYPE OF STUDY: Multiple computed tomographic images of the abdomen and pelvis with intravenous contrast are provided at the time of this interpretation. CONTRAST ROUTE: Intravenous contrast was administered The protocol was adequate to address the clinical question. The outside final report was not available at the time of this second opinion interpretation. TYPE OF CONSULTATION: Consult on outside imaging study with images submitted through [facility] DATE OF CONSULTATION: 04/12/2019 12:41 PM HISTORY: Bowel obstruction COMPARISON: 03/23/2019 FINDINGS: Visualized lung bases demonstrate minimal dependent atelectasis. Compared to the prior examination there is new marked dilation of the rectosigmoid colon and distal small bowel with a focal transition point at the level of the rectosigmoid junction where there are multiple enhancing nodules compatible with metastatic implants with desmoplastic reaction resulting and a colonic obstruction. The nodular enhancement compared to the prior study remains stable. I would favor that this represents metastatic disease with resultant colonic obstruction over diverticulitis or inflammatory colitis. The multiple metastatic deposits along the surface of the liver undersurface of the diaphragm on the spleen and in the root of the mesentery remains stable. The metastatic disease along the surface of the liver stable. Bilateral renal cysts are stable. The adrenal glands and kidneys are unchanged. Multiple retroperitoneal mesenteric lymph nodes are stable in size number and configuration. In addition, there is a nodular enhancing lesion at the level of the vaginal cuff likely representing metastatic implant. Procedure Note Chalino Abernathy MD - 04/12/2019 EXAMINATION: RADIOLOGY CONSULTATION ON OUTSIDE IMAGING STUDY STUDY INITIALLY PERFORMED: 04/11/2019 at [facility]. TYPE OF STUDY: Multiple computed tomographic images of the abdomen and pelvis with intravenous contrast are provided at the time of this interpretation. CONTRAST ROUTE: Intravenous contrast was administered The protocol was adequate to address the clinical question. The outside final report was not available at the time of this second opinion interpretation. TYPE OF CONSULTATION: Consult on outside imaging study with images submitted through [facility] DATE OF CONSULTATION: 04/12/2019 12:41 PM HISTORY: Bowel obstruction COMPARISON: 03/23/2019 FINDINGS: Visualized lung bases demonstrate minimal dependent atelectasis. Compared to the prior examination there is new marked dilation of the rectosigmoid colon and distal small bowel with a focal transition point at the level of the rectosigmoid junction where there are multiple enhancing nodules compatible with metastatic implants with desmoplastic reaction resulting and a colonic obstruction. The nodular enhancement compared to the prior study remains stable. I would favor that this represents metastatic disease with resultant colonic obstruction over diverticulitis or inflammatory colitis. The multiple metastatic deposits along the surface of the liver undersurface of the diaphragm on the spleen and in the root of the mesentery remains stable. The metastatic disease along the surface of the liver stable. Bilateral renal cysts are stable. The adrenal glands and kidneys are unchanged. Multiple retroperitoneal mesenteric lymph nodes are stable in size number and configuration. In addition, there is a nodular enhancing lesion at the level of the vaginal cuff likely representing metastatic implant. IMPRESSION: 1. Colonic obstruction with focal transition point at the level of the rectosigmoid junction. At this level there is tethering of loops of bowel. I would favor that this represents an obstruction secondary to a metastatic implant with associated desmoplastic reaction over changes from prior colitis. 2. Stable metastatic disease to the liver, undersurface of the diaphragm retroperitoneum, retroperitoneum and vaginal cuff. The findings, conclusions and recommendations within this report do not replace the initial findings, conclusions and recommendations made at the facility where the study was performed based upon the imaging and clinical condition at that time. Comparison with the prior report and clinical history is necessary. The provided images may or may not represent the [place] source data set and thus may contain changes that may lower the accuracy of this second-opinion interpretation. Electronically signed by: Chalino Abernathy M.D., MPH Woodrow Cerna MD IMG CT PROCEDURES Final Result * (ABNORMAL) Urinalysis, microscopic only (04/12/2019 2:03 AM CDT) WBC, ur 6-10(A) 0 - 5 /[facility] RBC, ur 3-5(A) 0 - 2 /HPF [facility] Epithelial cells, squamous, ur 1-5 0 - 5 /HPF [facility] Bacteria, ur 3+(A) [facility] Mucous, ur Present(A) [facility] Urine 04/12/2019 2:03 AM CDT 04/12/2019 3:34 AM CDT Woodrow Cerna MD LAB URINE ORDERABLES Final Res ult [facility] [address] [place] [address] * Urine culture Urine, bladder (04/12/2019 2:03 AM CDT) Report Final Report: Less than 100,000 colonies/mL (clinically insignificant growth based on current clinical standards) [facility] Organism (CLINICALLY INSIGNIFICANT GROWTH [facility] Urine, bladder 04/12/2019 2: 03 AM CDT 04/12/2019 3:46 AM CDT Narrative JASON BLACK - 04/13/2019 8:58 AM CDT Indications for Culture:->Recent positive UA Testing performed by [facility] ([phone]) Woodrow Cerna MD LAB MICROBIOLOGY - GENERAL ORD ERABLES Final Result [facility] [address] [place] [address] * (ABNORMAL) Urinalysis reflex to microscopic (04/12/2019 2:03 AM CDT) Color, ur Yellow Yellow [facility] Clarity, ur Cloudy(A) Clear [facility] Specific gravity, ur >1.042(H) 1.010 - 1.025 [facility] pH, urine 5 [facility] Protein, ur ql 1+(A) Negative [facility] Glucose, ur ql Negative Negative [facility] Ketones, ur Trace Negative [facility] Bilirubin, ur Negative Negative [facility] Blood, ur Negative Negative [facility] Urobilinogen, ur <2.0 <2.0 mg/dL [facility] Nitrite, ur Negative Negative [facility] Leukocyte esterase, ur Negative Negative [facility] Urine 04/12/2019 2:03 AM CDT 04/12/2019 3:34 AM CDT Narrative CERNER BJ - 04/12/2019 3:54 AM CDT ?? Urine pH is affected by diet, medications, systemic acid-base disturbances, and renal tubular function. ??pH may affect urinary stone formation. ??For example, urine pH below 6.0 may help reduce the tendency for calcium phosphate stones and pH greater than 6.0 may reduce the tendency for uric acid stone formation. Source: [facility]. Last revised 07-18-2017 Woodrow Cerna MD LAB URINE ORDERABLES Final Res ult Performing Organization Address [facility] Co de Phone Number [address] [address] * Phosphorus (04/12/2019 2:00 AM CDT) Phosphorus, pl 3.3 2.3 - 4.5 mg/dL [facility] Blood specimen (specimen) 04/12/2019 2:00 AM CDT 04/12/2019 3:39 AM CDT Woodrow Cerna MD LAB BLOOD ORDERABLES Final Res ult Performing Organization Address [facility] de Phone Number [address] [address] * Magnesium (04/12/2019 2:00 AM CDT) Magnesium 2.0 1.4 - 2.5 mg/dL [facility] Blood specimen (specimen) 04/12/2019 2:00 AM CDT 04/12/2019 3:39 AM CDT Woodrow Cerna MD LAB BLOOD ORDERABLES Final Res ult Performing Organization Address [facility] de Phone Number [address] [address] * (ABNORMAL) Basic metabolic panel (04/12/2019 2:00 AM CDT) Sodium 141 135 - 145 mmol/L [facility] Potassium, pl 3.1(L) 3.3 - 4.9 mmol/L [facility] Chloride 107 97 - 110 mmol/L [facility] CO2 24 22 - 32 mmol/L [facility] Anion gap 10 2 - 15 mmol/L [facility] BUN 14 8 - 25 mg/dL [facility] Creatinine 0.77 0.60 - 1.10 mg/dL [facility] Glucose 136 70 - 199 mg/dL [facility] Comment: Interpretive Data Fasting glucose >/= [...] interpretive data was last revised 2017. Calcium 8.2(L) 8.5 - 10.3 mg/dL [facility] Blood specimen (specimen) 04/12/2019 2:00 AM CDT 04/12/2019 3:39 AM CDT Woodrow Cerna MD LAB BLOOD ORDERABLES Final Res ult [facility] [address] [place], [place] [id number] * (ABNORMAL) CBC without differential (04/12/2019 2:00 AM CDT) [facility] WBC 7.0 3.8 - 9.9 K/cumm [facility] Hgb 14.3 11.9 - 15.5 g/dL [facility] Hct 42.4 35.6 - 45.5 % [facility] Plt 135(L) 150 - 400 K/cumm [facility] MPV 10.5 9.1 - 12.3 fL [facility] RBC 4.74 3.90 - 5.20 M/cumm [facility] MCV 89.5 81.3 - 96.4 fL [facility] MCH 30.2 27.1 - 33.3 pg [facility] MCHC 33.7 32.3 - 35.7 g/dL [facility] RDW CV 13.6 11.1 - 14.9 % [facility] RDW SD 44.0 35.7 - 48.1 fL [facility] NRBC abs 0.00 0.00 - 0.01 K/cumm [facility] Blood specimen (specimen) 04/12/2019 2:00 AM CDT 04/12/2019 3:39 AM CDT us Woodrow Cerna MD LAB BLOOD ORDERABLES Final Res ult [facility] [address] [place] [address] documented in this encounter Visit Diagnoses Diagnosis Large bowel obstruction (CMS/HCC) (HCC)- Primary Unspecified intestinal obstruction Large bowel obstruction (CMS/HCC) (HCC) Unspecified intestinal obstruction Acute postoperative abdominal pain 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 Hypocalcemia ANNE-MARIE (acute kidney injury) (HCC) documented in this encounter Administered Medications Inactive Administered Medications - up to 3 most recent administrations Medication Order MAR Action Action Date Dose Rate Site acetaminophen (TYLENOL) tablet 1,000 mg 1,000 mg, feeding tube, Every 8 hours scheduled, First dose on Sat04/13/19 at 2300, Indications: PainIndications:Pain Given 04/24/2019 11:42 AM CDT 1,000 mg Given 04/23/2019 8:20 PM CDT 1,000 mg Given 04/23/2019 1:28 PM CDT 1,000 mg aluminum-magnesium hydroxide-simethicone (MAALOX) 40-40-4 mg/mL oral suspension 30 mL 30 mL, oral, Once, On Lydia 04/23/19 at 2230, For 1 dose Given 04/23/2019 9:59 PM CDT 30 mL benzocaine-menthol (CHLORASEPTIC) lozenge 1 lozenge 1 lozenge, mouth/throat, Every 2 hours PRN, sore throat, Starting on Sat04/17/19 at 0151 bupivacaine preservative free in 0.9% sodium chloride 250 mL 0.1 % (1,000 mcg/mL) Continuous Rate: other / 6 ml/hr, Patient Bolus Dose: none, epidural, Continuous, Starting on Sat04/13/19 at 1400, Until Sat04/14/19 at 0124, 250 mL, Indications: Pain THORACIC - Notify MD for lower extremity weakness, upper extremity weakness, tenderness to palpation at epidural site, signs and symptoms of local anesthetic toxicity (metallic taste in mouth, ringing in ears, mouth/lip numbness or tingling)., RoutineIndications:Pain Rate/Dose Change 04/13/2019 8:56 PM CDT 3 mL/hr New Bag 04/13/2019 7:15 PM CDT 6 mL/hr Ot her (Comment) bupivacaine preservative free in 0.9% sodium chloride 250 mL 0.1 % (1,000 mcg/mL) Continuous Rate: other / 3 ml/hr, Patient Bolus Dose: none, epidural, Continuous, Starting on Sat04/14/19 at 0200, Until Sat04/15/19 at 1038, 250 mL, Indications: Paolo THORACIC - Notify for lower extremity weakness, upper extremity weakness, tenderness to palpation at epidural site, signs and symptoms of local anesthetic toxicity (metallic taste in mouth, ringing in ears, mouth/lip numbness or tingling)., RoutineIndications:Pain New Bag 04/14/2019 3:14 AM CDT bupivacaine preservative free in 0.9% sodium chloride 250 mL 0.1 % (1,000 mcg/mL) Continuous Rate: other / 6 ml/hr, Patient Bolus Dose: none, epidural, Continuous, Starting on Sat04/15/19 at 1115, Until Sat04/17/19 at 0947, 250 mL, Indications: Paolo THORACIC - Notify for lower extremity weakness, upper extremity weakness, tenderness to palpation at epidural site, signs and symptoms of local anesthetic toxicity (metallic taste in mouth, ringing in ears, mouth/lip numbness or tingling)., RoutineIndications:Pain Rate/Dose Verify 04/16/2019 5:13 PM CDT Rate/Dose Verify 04/15/2019 11:55 AM CDT bupivacaine preservative free in 0.9% sodium chloride 250 mL 0.1 % (1,000 mcg/mL) Continuous Rate: 8 mL/hr, Patient Bolus Dose: none, epidural, Continuous, Starting on Sat04/17/19 at 1245, Until Sat04/18/19 at 1011, 250 mL, Indications: Pain THORACIC - Notify MD for lower extremity weakness, upper extremity weakness, tenderness to palpation at epidural site, signs and symptoms of local anesthetic toxicity (metallic taste in mouth, ringing in ears, mouth/lip numbness or tingling)., RoutineIndications:Pain New Bag 04/17/2019 10:49 PM CDT Rate/Dose Verify 04/17/2019 3:27 PM CDT Rate/Dose Verify 04/17/2019 12:53 PM CDT calcium carbonate (OS-SKYLER) 250 mg/mL (100 mg/mL as elemental) oral suspension 2,500 mg 2,500 mg (1,000 mg of elemental calcium), oral, Once, On Sat04/14/19 at 1845, For 1 dose Given 04/14/2019 8:29 PM CDT 2,500 mg calcium carbonate (OS-SKYLER) 250 mg/mL (100 mg/mL as elemental) oral suspension 5,000 mg 5,000 mg (2,000 mg of elemental calcium), feeding tube, Once, On Sat04/15/19 at 0115, For 1 dose Given 04/15/2019 1:03 AM CDT 5,000 mg calcium carbonate (TUMS) chewable tablet 1,000 mg 1,000 mg (400 mg of elemental calcium), oral, Once, On Sat04/17/19 at 2315, For 1 dose Given 04/17/2019 11:53 PM CDT 1,000 mg calcium carbonate (TUMS) chewable tablet 2,500 mg 2,500 mg (1,000 mg of elemental calcium), oral, 3 times daily, First dose on Sat04/17/19 at 1600 Given 04/21/2019 10:30 AM CDT 2,500 mg Given 04/20/2019 3:48 PM CDT 2,500 mg Given 04/20/2019 7:59 AM CDT 2,500 mg calcium carbonate (TUMS) chewable tablet 2,500 mg 2,500 mg (1,000 mg of elemental calcium), oral, Daily, First dose (after last modification) on Sat04/22/19 at 0900 Given 04/23/2019 9:17 AM CDT 2,500 mg Given 04/22/2019 9:27 AM CDT 2,500 mg calcium gluconate 12,000 mg in sodium chloride 0.9% 1,000 mL (12 mg/mL) infusion 4 mg/kg/hr ? 81.6 kg (27.2 mL/hr), intravenous, Continuous, Starting on Sat04/14/19 at 1300, Indications: hypocalcemiaIndications:h ypocalcemia Rate/Dose Change 04/15/2019 1:10 PM CDT 4 mg/kg/hr 27.2 mL/hr Rate/Dose Change 04/15/2019 12:51 AM CDT 8 mg/kg/hr 54.4 m L/hr New Bag 04/14/2019 5:45 PM CDT 6 mg/kg/hr 40.8 mL/hr calcium gluconate 2 g in sodium chloride 0.9% 100 mL IVPB 2 g, intravenous, at 120 mL/hr, Administer over 60 Minutes, Once, On Sat04/14/19 at 0545, For 1 dose, Indications: hypocalcemiaIndications:hypoca lcemia New 04/14/2019 5:31 AM CDT 2 g 120 mL/hr calcium gluconate 2 g in sodium chloride 0.9% 100 mL IVPB 2 g, intravenous, at 120 mL/hr, Administer over 60 Minutes, Once, On Sat04/14/19 at 1215, For 1 dose, Indications: hypocalcemiaIndications:hypoca lcemia New Bag 04/14/2019 1:14 PM CDT 2 g 120 mL/hr calcium gluconate 2 g in sodium chloride 0.9% 100 mL IVPB 2 g, intravenous, at 120 mL/hr, Administer over 60 Minutes, Once, On Sat04/17/19 at 2315, For 1 dose, Indications: hypocalcemiaIndications:hypoca lcemia New Bag 04/18/2019 12:35 AM CDT 2 g 120 mL/hr calcium gluconate 2 g in sodium chloride 0.9% 100 mL IVPB 2 g, intravenous, at 120 mL/hr, Administer over 60 Minutes, Once, On Sat04/18/19 at 0200, For 1 dose, Indications: hypocalcemiaIndications:hypoca lcemia New Bag 04/18/2019 1:46 AM CDT 2 g 120 mL/hr cholecalciferol (VITAMIN D-3) capsule 2,000 Units 2,000 Units, oral, Daily, First dose (after last modification) on Sat04/25/19 at 0900 cholecalciferol (VITAMIN D-3) capsule 5,000 Units 5,000 Units, oral, Daily, First dose on Sat04/17/19 at 1530 Given 04/23/2019 9:17 AM CDT 5,000 Units Given 04/22/2019 9:27 AM CDT 5,000 Units Given 04/21/2019 10:30 AM CDT 5,000 Units dextrose 5% and sodium chloride 0.45% infusion (premix) 100 mL/hr, intravenous, Continuous, Starting on Sat04/12/19 at 0215 New Bag 04/13/2019 7:35 PM CDT 100 mL/hr 100 mL/hr Left Forearm New Bag 04/13/2019 10:14 AM CDT 100 mL/hr 100 mL/hr New Bag 04/12/2019 5:32 PM CDT 100 mL/hr 100 mL/hr dextrose 5% and sodium chloride 0.45% infusion (premix) 50 mL/hr, intravenous, Continuous, Starting on Sat04/17/19 at 0900 Rate/Dose Verify 04/17/2019 1:27 PM CDT 50 mL/hr 50 mL/hr New Bag 04/17/2019 10:16 AM CDT 50 mL/hr 50 mL/hr dextrose 5% and sodium chloride 0.45% with potassium chloride 20 mEq/L infusion (premix) 125 mL/hr, intravenous, Continuous, Starting on Sat04/13/19 at 1945, For 8 hours, Phase I & Post-op Floor New 04/13/2019 8:42 PM CDT 125 mL/hr 125 mL/ hr dextrose 5% and sodium chloride 0.9% with potassium chloride 20 mEq/L infusion (premix) 75 mL/hr, intravenous, Continuous, Starting on Sat04/17/19 at 0145 New Bag 04/17/2019 2:19 AM CDT 75 mL/hr 75 mL/hr DULoxetine DR (CYMBALTA) extended release capsule 30 mg 30 mg, oral, Daily, First dose on Sat04/12/19 at 0900, Capsule may be opened and contents mixed with applesauce or apple juice ONLY. Do not crush, chew, cut, dissolve, open or otherwise manipulate tablet/capsule. Given 04/24/2019 11:38 AM CDT 30 mg Given 04/23/2019 9:17 AM CDT 30 mg Given 04/22/2019 9:27 AM CDT 30 mg enoxaparin (LOVENOX) syringe 40 mg 40 mg, subcutaneous, Daily (for enoxaparin), First dose on Sat04/12/19 at 2100, Indications: Deep Vein Thrombosis PreventionIndications:Deep Vein Thrombosis Prevention Given 04/12/2019 9:37 PM CDT 40 mg Left Lower Abdomen enoxaparin (LOVENOX) syringe 40 mg 40 mg, subcutaneous, Daily (for enoxaparin), First dose on Sat04/14/19 at 2100, RN to teach home administration with every injection, Indications: Deep Vein Thrombosis PreventionIndications:Deep Vein Thrombosis Prevention Given 04/23/2019 8:19 PM CDT 40 mg Right Upper Abdomen Given 04/22/2019 8:11 PM CDT 40 mg Le ft Upper Abdomen Given 04/21/2019 10:01 PM CDT 40 mg L eft Lower Abdomen famotidine (PEPCID) 20 mg/50 mL in sodium chloride 0.9% (premix) 20 mg 20 mg, intravenous, at 100 mL/hr, Administer over 30 Minutes, Daily, First dose on Sat04/15/19 at 1330 New Bag 04/18/2019 7:35 AM CDT 20 mg 100 mL/hr New Bag 04/17/2019 10:16 AM CDT 20 mg 100 mL/hr New Bag 04/16/2019 11:58 AM CDT 20 mg 100 mL/hr gabapentin (NEURONTIN) capsule 200 mg 200 mg, feeding tube, 2 times daily, First dose on Sat04/14/19 at 0900 Given 04/24/2019 11:39 AM CDT 200 mg Given 04/23/2019 8:20 PM CDT 200 mg Given 04/23/2019 9:17 AM CDT 200 mg hydrALAZINE (APRESOLINE) injection 10 mg 10 mg, intravenous, Administer over 2 Minutes, Once as needed, high blood pressure, SBP >175, Starting on 04/18/19 at 0527, For 1 dose, Indications: hypertensionIndications:hypertension Given 04/19/2019 4:37 AM CDT 10 mg hydrALAZINE (APRESOLINE) injection 10 mg 10 mg, intravenous, Administer over 2 Minutes, Once, On 04/19/19 at 0730, For 1 dose, Indications: hypertensionIndications:hypertension Given 04/19/2019 8:43 AM CDT hydroCHLOROthiazide (HYDRODIURIL) tablet 12.5 mg 12.5 mg, oral, Daily, First dose on 04/18/19 at 1100 Given 04/24/2019 11:40 AM CDT 12.5 mg Given 04/23/2019 9:17 AM CDT 12.5 mg Given 04/22/2019 9:29 AM CDT 12.5 mg HYDROmorphone (DILAUDID) injection 0.2 mg 0.2 mg, intravenous, Administer over 2 Minutes, Every 4 hours PRN, 1st line for pain, Starting on 04/12/19 at 0135, Indications: PainIndications:Pain Given 04/12/2019 6:39 AM CDT 0.2 mg Given 04/12/2019 2:07 AM CDT 0.2 mg HYDROmorphone (DILAUDID) injection 0.2 mg 0.2 mg, intravenous, Administer over 2 Minutes, Every 2 hours PRN, 1st line for pain, Starting on 04/12/19 at 1000, Indications: PainIndications:Pain Given 04/13/2019 10:56 AM CDT 0.2 mg Given 04/13/2019 8:52 AM CDT 0.2 mg Given 04/13/2019 7:04 AM CDT 0.2 mg HYDROmorphone (DILAUDID) injection 0.2 mg 0.2 mg, intravenous, Administer over 2 Minutes, Every 4 hours PRN, 3rd line for pain, breakthrough pain, Starting on Sat04/17/19 at 1318 Given 04/17/2019 11:58 PM CDT 0.2 mg HYDROmorphone in 0.9% sodium chloride (DILAUDID) 20 mg/100 mL (0.2 mg/mL) infusion (premix) Continuous dose: None, NETWORK MANAGER dose: Other / 0.1, NETWORK MANAGER lockout: 10 Minutes, 1 hour limit: Other / 0.6, intravenous, Continuous, Starting on Sat04/13/19 at 1945, Until Sat04/17/19 at 0946, 100 mL, Indications: Pain, RoutineIndications:Pain Rate/Dose Verify 04/16/2019 5:15 PM CDT New Syringe/Cartridge 04/13/2019 8:19 PM CDT 20 mg Lactated Ringer's (LR) bolus 500 mL 500 mL, intravenous, Once, On Sat04/14/19 at 1930, For 1 dose New Bag 04/14/2019 8:06 PM CDT 500 mL loratadine (CLARITIN) tablet 10 mg 10 mg, oral, Once, On Sat04/17/19 at 1215, For 1 dose Given 04/17/2019 1:15 PM CDT 10 mg loratadine (CLARITIN) tablet 10 mg 10 mg, oral, Once, On Sat04/18/19 at 2145, For 1 dose Given 04/18/2019 9:33 PM CDT 10 mg loratadine (CLARITIN) tablet 10 mg 10 mg, oral, Daily, First dose (after last modification) on Sat04/20/19 at 0000 Given 04/24/2019 11:38 AM CDT 10 mg Given 04/23/2019 9:17 AM CDT 10 mg Given 04/22/2019 9:26 AM CDT 10 mg LORazepam (ATIVAN) 2 mg/mL injection - ADS Override Pull Starting on Sat04/13/19 at 0716, For 1 dose, EVELIN WILLINGHAM: [email or web address] override For IV administration, dilute with equal volume of 0.9% sodium chloride. Do not exceed a rate of 2 mg/minute LORazepam (ATIVAN) injection 0.5 mg 0.5 mg, intravenous, Once, On Sat04/13/19 at 0745, For 1 dose, For IV administration, dilute with equal volume of 0.9% sodium chloride. Do not exceed a rate of 2 mg/minute Given 04/13/2019 7:18 AM CDT 0.5 mg losartan (COZAAR) tablet 25 mg 25 mg, oral, Daily, First dose on Sat04/18/19 at 1100 Given 04/24/2019 11:39 AM CDT 25 mg Given 04/23/2019 9:17 AM CDT 25 mg Given 04/22/2019 9:26 AM CDT 25 mg magnesium sulfate 1 g in sodium chloride 0.9% 50 mL IVPB 1 g, intravenous, at 50 mL/hr, Administer over 60 Minutes, Once, On Sat04/14/19 at 0545, For 1 dose New Bag 04/14/2019 5:31 AM CDT 1 g 50 mL/hr magnesium sulfate 2 g/50 mL in water (premix) 2 g 2 g, intravenous, Administer over 60 Minutes, Once, On Sat04/14/19 at 1230, For 1 dose, Indications: hypomagnesemiaIndications:hypomagnese jaycee [facility] 04/14/2019 2:43 PM CDT 2 g magnesium sulfate 2 g/50 mL in water (premix) 2 g 2 g, intravenous, Administer over 60 Minutes, Once, On Lydia 04/16/19 at 0200, For 1 dose [facility] 04/16/2019 6:26 AM CDT 2 g magnesium sulfate 2 g/50 mL in water (premix) 2 g 2 g, intravenous, Administer over 60 Minutes, Once, On Sat04/17/19 at 0815, For 1 dose [facility] 04/17/2019 12:04 PM CDT 2 g magnesium sulfate 2 g/50 mL in water (premix) 2 g 2 g, intravenous, Administer over 60 Minutes, Once, On Sat04/19/19 at 0730, For 1 dose, Indications: hypomagnesemiaIndications:hypomagnese jaycee [facility] 04/19/2019 10:30 AM CDT 2 g magnesium sulfate 2 g/50 mL in water (premix) 2 g 2 g, intravenous, Administer over 60 Minutes, Once, On Sat04/20/19 at 0500, For 1 dose, Indications: hypomagnesemiaIndications:hypomagnese jaycee [facility] 04/20/2019 6:00 AM CDT 2 g oxybutynin (DITROPAN) tablet 5 mg 5 mg, oral, 3 times daily, First dose on Sat04/19/19 at 0900 Given 04/24/2019 11:39 AM CDT 5 mg Given 04/23/2019 8:20 PM CDT 5 mg Given 04/23/2019 4:13 PM CDT 5 mg oxyCODONE (ROXICODONE) tablet 5 mg 5 mg, oral, Every 4 hours PRN, 2nd line for pain, Starting on Sat04/17/19 at 0945, Indications: PainIndications:Pain Given 04/23/2019 10:00 PM CDT 5 mg Given 04/22/2019 9:54 PM CDT 5 mg Given 04/21/2019 10:00 PM CDT 5 mg potassium chloride (KAYCIEL) 1.3 mEq/mL oral liquid 40 mEq 40 mEq, oral, Once, On 04/18/19 at 2200, For 1 dose, Recommend to dilute each 15 mL with at least 6 ounces of water or juice prior to administration. Given 04/18/2019 9:35 PM CDT 40 mEq potassium chloride 20 mEq/260 mL in sodium chloride 0.9% (premix) 20 mEq 20 mEq, intravenous, Administer over 2 Hours, Once, On 04/18/19 at 2200, For 1 dose, Total dose = 60 mEq. Start immediately after first potassium chloride infusion ends., Indications: hypokalemiaIndications:hypoka lemia New Bag 04/19/2019 6:22 AM CDT 20 mEq potassium chloride 20 mEq/260 mL in sodium chloride 0.9% (premix) 20 mEq 20 mEq, intravenous, Administer over 2 Hours, Once, On 04/19/19 at 2115, For 1 dose, Total dose = 60 mEq. Start immediately after first potassium chloride infusion ends., Indications: hypokalemiaIndications:hypoka lemia New Bag 04/20/2019 3:27 AM CDT 20 mEq potassium chloride 40 mEq/520 mL in sodium chloride 0.9% (premix) 40 mEq 40 mEq, intravenous, at 130 mL/hr, Administer over 4 Hours, Once, On 04/12/19 at 0645, For 1 dose, Indications: hypokalemiaIndications:hypoka lemia New Bag 04/12/2019 8:42 AM CDT 40 mEq 130 mL/hr potassium chloride 40 mEq/520 mL in sodium chloride 0.9% (premix) 40 mEq 40 mEq, intravenous, at 130 mL/hr, Administer over 4 Hours, Once, On Sat04/17/19 at 0145, For 1 dose, Total dose = 60 mEq, Indications: hypokalemiaIndications:hypoka lemia New Bag 04/17/2019 4:17 AM CDT 40 mEq 130 mL/hr potassium chloride 40 mEq/520 mL in sodium chloride 0.9% (premix) 40 mEq 40 mEq, intravenous, at 130 mL/hr, Administer over 4 Hours, Once, On 04/18/19 at 2200, For 1 dose, Total dose = 60 mEq, Indications: hypokalemiaIndications:hypoka lemia Rate/Dose Verify 04/19/2019 6:23 AM CDT 130 mL/hr New Bag 04/19/2019 1:20 AM CDT 40 mEq 130 mL/hr potassium chloride 40 mEq/520 mL in sodium chloride 0.9% (premix) 40 mEq 40 mEq, intravenous, at 130 mL/hr, Administer over 4 Hours, Once, On Sat04/19/19 at 2115, For 1 dose, Total dose = 60 mEq, Indications: hypokalemiaIndications:hypokalemia New Bag 04/19/2019 11:10 PM CDT 40 mE q 130 mL/hr potassium chloride ER (KLOR-CON) extended release tablet 20 mEq 20 mEq, oral, 2 times daily, First dose on Sat04/20/19 at 0900, For 2 doses, Do not crush, chew, cut, dissolve, open or otherwise manipulate tablet/capsule. Given 04/20/2019 8:01 AM CDT 20 mEq potassium chloride ER (KLOR-CON) extended release tablet 20 mEq 20 mEq, oral, Once, On Sat04/23/19 at 0630, For 1 dose, Do not crush, chew, cut, dissolve, open or otherwise manipulate tablet/capsule. Given 04/23/2019 6:53 AM CDT 20 mEq potassium chloride ER (KLOR-CON) extended release tablet 40 mEq 40 mEq, oral, 2 times daily, First dose (after last modification) on Sat04/21/19 at 0900, For 1 day, Do not crush, chew, cut, dissolve, open or otherwise manipulate tablet/capsule. Given 04/21/2019 10:00 PM CDT 40 mEq Given 04/21/2019 10:29 AM CDT 40 mEq potassium phosphates 30 mmol in sodium chloride 0.9% 500 mL IVPB 30 mmol, intravenous, at 85 mL/hr, Administer over 6 Hours, Once, On Sat04/17/19 at 0845, For 1 dose, For PERIPHERAL line administration New Bag 04/17/2019 1:28 PM CDT 30 mmo l 85 mL/hr potassium, sodium phosphates (PHOS-NAK) 280-160-250 mg packet 1 packet 1 packet, oral, 3 times daily before meals, First dose on Sat04/18/19 at 1130, For 3 doses, Each packet contains 250 mg elemental phosphorus. Given 04/19/2019 9:15 AM CDT 1 packet Given 04/18/2019 6:19 PM CDT 1 packet simvastatin (ZOCOR) tablet 20 mg 20 mg, oral, Nightly, First dose (after last reorder) on 04/18/19 at 2100 Given 04/23/2019 8:20 PM CDT 20 mg Given 04/22/2019 8:12 PM CDT 20 mg Given 04/21/2019 10:00 PM CDT 20 mg sodium chloride 0.9% bolus 1,000 mL 1,000 mL, intravenous, at 500 mL/hr, Administer over 2 Hours, Once, On Sat04/14/19 at 1245, For 1 dose New Bag 04/14/2019 1:14 PM CDT 1,000 mL 500 mL/hr sodium chloride 0.9% bolus 500 mL 500 mL, intravenous, at 500 mL/hr, Administer over 1 Hours, Once, On Sat04/14/19 at 0330, For 1 dose New Bag 04/14/2019 3:07 AM CDT 500 mL 500 mL/hr sodium chloride 0.9% bolus 500 mL 500 mL, intravenous, Once, On Sat04/14/19 at 0715, For 1 dose New Bag 04/14/2019 6:55 AM CDT 500 mL sodium chloride 0.9% bolus 500 mL 500 mL, intravenous, at 250 mL/hr, Administer over 2 Hours, Once, On Sat04/15/19 at 0445, For 1 dose New Bag 04/15/2019 5:22 AM CDT 500 mL 250 mL/hr sodium chloride 0.9% flush 0.5-20 mL 0.5-20 mL, intra-catheter, Every 8 hours scheduled, First dose on Sat04/12/19 at 0600, Flush volume based on line type and size. Given 04/24/2019 5:43 AM CDT 10 mL Given 04/23/2019 5:49 AM CDT 10 mL Given 04/21/2019 5:50 AM CDT 10 mL sodium chloride 0.9% flush 0.5-20 mL 0.5-20 mL, intra-catheter, As needed, line care, Starting on Holiday 04/12/19 at 0135, Flush volume based on line type and size. Flush before and after each use. Given 04/14/2019 11:20 PM CDT 10 mL sodium chloride 0.9% flush 0.5-20 mL 0.5-20 mL, intra-catheter, Every 8 hours scheduled, First dose on Sat04/13/19 at 2300, Flush volume based on line type and size. Given 04/24/2019 5:44 AM CDT 10 mL Given 04/23/2019 8:23 PM CDT 10 mL Given 04/23/2019 5:49 AM CDT 10 mL sodium chloride 0.9% flush 5-10 mL 5-10 mL, intra-catheter, Every 12 hours scheduled, First dose on Sat04/14/19 at 2100, Flush volume based on line type, size, and protocol. Given 04/23/2019 8:24 PM CDT 10 mL Given 04/21/2019 10:35 AM CDT 10 mL Given 04/20/2019 8:31 PM CDT 10 mL sodium chloride 0.9% flush 5-20 mL 5-20 mL, intra-catheter, As needed, line care, with each use, Starting on Sat04/14/19 at 1928, Flush volume based on line type, size, and protocol. sodium chloride 0.9% infusion 100 mL/hr, intravenous, Continuous, Starting on Sat04/14/19 at 0545 New Bag 04/14/2019 5:31 AM CDT 100 mL/hr 100 mL/hr sodium chloride 0.9% infusion 125 mL/hr, intravenous, Continuous, Starting on Sat04/14/19 at 0545 New Bag 04/17/2019 12:53 AM CDT 125 mL/hr 125 mL/hr New Bag 04/16/2019 4:59 PM CDT 125 mL/hr 125 mL/hr New Bag 04/16/2019 8:59 AM CDT 125 mL/hr 125 mL/hr sodium chloride 0.9% IVPB 0-250 mL 0-250 mL, intravenous, Once, On Sat04/17/19 at 0815, For 1 dose, Prime blood tubing and administer amount needed to clear line (usually 50-100 mL) after transfusion complete. New Bag 04/17/2019 1:25 PM CDT 250 mL sodium phosphate 20 mmol in sodium chloride 0.9% 250 mL IVPB 20 mmol, intravenous, at 42.8 mL/hr, Administer over 6 Hours, Once, On Sat04/14/19 at 0200, For 1 dose New Bag 04/14/2019 3:07 AM CDT 20 mmol 42.8 mL/hr sodium phosphate 20 mmol in sodium chloride 0.9% 250 mL IVPB 20 mmol, intravenous, at 42.8 mL/hr, Administer over 6 Hours, Once, On 04/18/19 at 0145, For 1 dose New Bag 04/18/2019 5:15 AM CDT 20 mmol 42.8 mL/hr sodium phosphate 30 mmol in sodium chloride 0.9% 250 mL IVPB 30 mmol, intravenous, at 43.3 mL/hr, Administer over 6 Hours, Once, On 04/13/19 at 0015, For 1 dose New Bag 04/13/2019 1:10 AM CDT 30 mmol 43.3 mL/hr documented in this encounter Discontinued Medications Medication Sig Discontinue Reason Start Date End Da te trospium (SANCTURA) 20 mg tablet Take 20 mg by mouth. Alternate therapy 06/15/2018 9 valsartan-hydroCHLOR Othiazide (DIOVAN-HCT) 80-12.5 mg per tablet valsartan 80 mg-hydrochlorothiazide 12.5 mg tablet Alternate therapy 04/12/2019 wheat dextrin (BENEFIBER CLEAR SF, DEXTRIN, ORAL) Alternate therapy 04/12/2019 cephalexin (KEFLEX) 500 mg capsule cephalexin 500 mg capsule Therapy completed 04/12/2019 AMOXICILLIN 500 mg capsule TAKE 4 CAPSULES 1 HOUR BEFORE APPOINTMENT Therapy completed 03/27/2019 04/12/2019 olmesartan-hydrochlo rothiazide (BENICAR HCT) 40-25 mg per tablet Take 1 tablet by mouth daily Duplicate order 04/12/[address] (CYMBALTA) 30 mg capsule daily. Stop Taking at Discharge 04/24/2019 cholecalciferol (VITAMIN D-3) 5,000 unit tablet Take 15,000 Units by mouth daily. Stop Taking at Discharge 04/24/2019 MYRBETRIQ 50 mg tablet extended release 24 hr Take 50 mg by mouth daily Stop Taking at Discharge 09/29/2018 04/24/2019 cholestyramine (QUESTRAN) 4 gram packet cholestyramine (with sugar) 4 gram powder for susp in a packet Stop Taking at Discharge 04/24/2019 ergocalciferol (VITAMIN D) 50,000 unit capsule Vitamin D2 50,000 unit capsule Stop Taking at Discharge 04/24/2019 octreotide (SandoSTATIN) 100 mcg/mL (1 mL) syringeIndications:C arcinoid Syndrome Inject 1 mL (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) under the skin 3 (three) times a day as needed (flushing, cramping, diarrhea) Stop Taking at Discharge 01/19/2019 04/24/2019 diphenoxylate-atropi ne (LOMOTIL) 2.5-0.025 mg per tabletIndications:di arrhea Take 1 tablet by mouth 4 (four) times a day as needed for diarrhea Stop Taking at Discharge 03/02/2019 04/24/2019 documented as of this encounter Active and Recently Administered Medications Times are shown in CDT. Scheduled Medication Order 04/22/2019 04/23/2019 04/24/2019 acetaminophen (TYLENOL) tablet 1,000 mg 1,000 mg, feeding tube, Every 8 hours scheduled, First dose on 04/13/19 at 2300, Indications: Pain 0454 (Not Given - Provider: Soniya Aguirre RN - Reason: Patient/family refused)1200 (Not Given - Provider: Nichole Nash RN - Reason: Other - Comment: Pt asleep)2011 (Given - Provider: Pamela Nails RN) 0527 (Not Given - Provider: Pamela Nails RN - Reason: Patient/family refused - Comment: patient did not want to be)1328 (Given - Provider: Jesus James RN)2020 (Given - Provider: Pamela Nails RN) 0347 (Not Given - Provider: Pamela Nails RN - Reason: Patient/family refused - Comment: patient did not want to be woken up for tylenol)1142 (Given - Provider: Nichole Nash RN) aluminum-magnesium hydroxide-simethicone (MAALOX) 40-40-4 mg/mL oral suspension 30 mL (COMPLETED) 30 mL, oral, Once, On Lydia 04/23/19 at 2230, For 1 dose 2159 (Given - Provider: Pamela Nails RN) calcium carbonate (TUMS) chewable tablet 2,500 mg (CANCELED) 2,500 mg (1,000 mg of elemental calcium), oral, Daily, First dose (after last modification) on Sat04/22/19 at 0900 0927 (Given - Provider: Nichole Nash RN) 0917 (Given - Provider: Bea Escobar RN) 0900 (Due) cholecalciferol (VITAMIN D-3) capsule 2,000 Units 2,000 Units, oral, Daily, First dose (after last modification) on Sat04/25/19 at 0900 cholecalciferol (VITAMIN D-3) capsule 5,000 Units (CANCELED) 5,000 Units, oral, Daily, First dose on Sat04/17/19 at 1530 0927 (Given - Provider: Nichole Nash RN) 09 (Given - Provider: Bea Escobar RN) 0900 (Due) DULoxetine DR (CYMBALTA) extended release capsule 30 mg 30 mg, oral, Daily, First dose on Sat04/12/19 at 0900, Capsule may be opened and contents mixed with applesauce or apple juice ONLY. Do not crush, chew, cut, dissolve, open or otherwise manipulate tablet/capsule. 0927 (Given - Provider: Nichole Nash RN) 09 (Given - Provider: Bea Escobar RN) 1138 (Given - Provider: Nichole Nash RN) enoxaparin (LOVENOX) syringe 40 mg 40 mg, subcutaneous, Daily (for enoxaparin), First dose on Sat04/14/19 at 2100, RN to teach home administration with every injection, Indications: Deep Vein Thrombosis Prevention 2010 (Given - Provider: Pamela Nails, [place]) 2019 (Given - Provider: Pamela Nails, [place]) gabapentin (NEURONTIN) capsule 200 mg 200 mg, feeding tube, 2 times daily, First dose on Sat04/14/19 at 0900 0926 (Given - Provider: Nichole Nash RN)2011 (Given - Provider: Pamela Nails RN) 09 (Given - Provider: Bea Escobar, [place])2019 (Given - Provider: Pamela Nails RN) 113 (Given - Provider: Nichole Nash RN) hydroCHLOROthiazide (HYDRODIURIL) tablet 12.5 mg 12.5 mg, oral, Daily, First dose on Sat04/18/19 at 1100 0929 (Given - Provider: Nichole Nash RN) 09 (Given - Provider: Bea Escobar RN) 1140 (Given - Provider: Nichole Nash RN) HYDROmorphone (DILAUDID) injection 0.2 mg 0.2 mg, intravenous, Administer over 2 Minutes, Once, On Sat04/24/19 at 1145, For 1 dose 1145 (Due) loratadine (CLARITIN) tablet 10 mg 10 mg, oral, Daily, First dose (after last modification) on 04/20/19 at 0000 0926 (Given - Provider: Nichole Nash RN) 0917 (Given - Provider: Bea Escobar RN) 1138 (Given - Provider: Nichole Nash RN) losartan (COZAAR) tablet 25 mg 25 mg, oral, Daily, First dose on 04/18/19 at 1100 0926 (Given - Provider: Nichole Nash RN) 0917 (Given - Provider: Bea Escobar RN) 1139 (Given - Provider: Nichole Nash RN) oxybutynin (DITROPAN) tablet 5 mg 5 mg, oral, 3 times daily, First dose on Sat04/19/19 at 0900 0926 (Given - Provider: Nichole Nash RN)1631 (Given - Provider: Nichole Nash RN)2011 (Given - Provider: Pamela Nails RN) 09 (Given - Provider: Bea Escobar RN)1613 (Given - Provider: Bea Escobar RN)2019 (Given - Provider: Pamela Nails RN) 1139 (Given - Provider: Nichole Nash RN)1600 (Due) potassium chloride ER (KLOR-CON) extended release tablet 20 mEq (COMPLETED) 20 mEq, oral, Once, On Lydia 04/23/19 at 0630, For 1 dose, Do not crush, chew, cut, dissolve, open or otherwise manipulate tablet/capsule. 0653 (Given - Provider: Pamela Nails RN) simvastatin (ZOCOR) tablet 20 mg 20 mg, oral, Nightly, First dose (after last reorder) on 04/18/19 at 2100 2011 (Given - Provider: Pamela Nails, [place]) 2019 (Given - Provider: Pamela Nails, [place]) sodium chloride 0.9% flush 0.5-20 mL 0.5-20 mL, intra-catheter, Every 8 hours scheduled, First dose on Sat04/12/19 at 0600, Flush volume based on line type and size. 0607 (Not Given - Provider: Soniya Aguirre RN - Reason: Other - Comment: flushed when drawing morning labs)1400 (Due)2200 (Due) 0549 (Given - Provider: Pamela Nails RN)1400 (Due)2124 (Not Given - Provider: Pamela Nails RN - Reason: Other - Comment: given when drawn blood) 0543 (Given - Provider: Pamela Nails RN)1400 (Due) sodium chloride 0.9% flush 0.5-20 mL 0.5-20 mL, intra-catheter, Every 8 hours scheduled, First dose on Sat04/13/19 at 2300, Flush volume based on line type and size. 0608 (Not Given - Provider: Soniya Aguirre RN - Reason: Order parameters not met)1631 (Given - Provider: Nichole Nash RN)2011 (Given - Provider: Pamela Nails RN) 0549 (Given - Provider: Pamela Nails RN)1400 (Due)2022 (Given - Provider: Pamela Nails RN) 0544 (Given - Provider: Pamela Nails RN)1400 (Due) sodium chloride 0.9% flush 5-10 mL 5-10 mL, intra-catheter, Every 12 hours scheduled, First dose on Sat04/14/19 at 2100, Flush volume based on line type, size, and protocol. 0900 (Due)2099 (Due) 09 (Due)2023 (Given - Provider: Pamela Nails RN) 0900 (Due) PRN Medication Order 04/22/2019 04/23/2019 04/24/2019 benzocaine-menthol (CHLORASEPTIC) lozenge 1 lozenge 1 lozenge, mouth/throat, Every 2 hours PRN, sore throat, Starting on Sat04/17/19 at 0151 ondansetron (ZOFRAN) injection 4 mg 4 mg, intravenous, Administer over 2 Minutes, Every 6 hours PRN, nausea, vomiting, Starting on Sat04/13/19 at 2219, Proceed to prochlorperazine if no relief within 30 minutes. oxyCODONE (ROXICODONE) tablet 5 mg 5 mg, oral, Every 4 hours PRN, 2nd line for pain, Starting on Sat04/17/19 at 0945, Indications: Pain 2154 (Given - Provider: Pamela Nails, RN) 2200 (Given - Provider: Pamela Nails, RN) prochlorperazine (COMPAZINE) injection 10 mg 10 mg, intravenous, Every 6 hours PRN, nausea, vomiting, Starting on Sat04/13/19 at 2219, If not relieved by ondansetron within 30 minutes. sodium chloride 0.9% flush 0.5-20 mL 0.5-20 mL, intra-catheter, As needed, line care, Starting on Sat04/12/19 at 0135, Flush volume based on line type and size. Flush before and after each use. sodium chloride 0.9% flush 0.5-20 mL 0.5-20 mL, intra-catheter, As needed, line care, Starting on Sat04/13/19 at 2219, Flush volume based on line type and size. Flush before and after each use. sodium chloride 0.9% flush 5-20 mL 5-20 mL, intra-catheter, As needed, line care, with each use, Starting on Sat04/14/19 at 1928, Flush volume based on line type, size, and protocol. documented in this encounter Orders Medications Ordered That Brett ht Not Have Been Administered Count Last Ordered Date First Ordered Date cholecalciferol (VITAMIN D-3 ) capsule 2,000 Units 1 04/24/2019 HYDROmorphone (DILAUDID) injection 0.2 mg 3 04/24/2019 04/13/2019 mirabegron ER (MYRBETRIQ) ex tended release tablet 50 mg 2 04/20/2019 04/12/2019 loratadine (CLARITIN) tablet 10 mg 2 201804/18/2019 potassium, sodium phosphates (PHOS-NAK) 280-160-250 mg packet 1 packet 1 04/19/2019 bupivacaine preservative bryant e in 0.9% sodium chloride 250 mL 0.1 % (1,000 mcg/mL) 3 04/18/2019 04/17/2019 benzocaine-menthol (CHLORASE PTIC) lozenge 1 lozenge 1 04/17/2019 potassium chloride 20 mEq/26 0 mL in sodium chloride 0.9% (premix) 20 mEq 1 04/17/2019 cholecalciferol (VITAMIN D-3 ) 400 unit/mL oral drops 15,200 Units 1 04/15/2019 cholecalciferol (VITAMIN D-3 ) capsule 15,000 Units 2 04/15/2019 calcium gluconate 12,000 mg in sodium chloride 0.9% 1,000 mL (12 mg/mL) infusion 2 04/14/2019 lidocaine PF (XYLOCAINE) 10 mg/mL (1 %) preservative free injection 10-20 mg 1 04/14/2019 sodium chloride 0.9% flush 5-20 mL 1 2018 dextrose 5% and sodium chlor shaq 0.45% with potassium chloride 20 mEq/L infusion (premix) 1 04/13/2019 haloperidol (HALDOL) injection 0.5 mg 1 01/2019 Lactated Ringer's (LR) infusion 1 9 naloxone (NARCAN) 0.4 mg/mL injection 0.04-0.4 mg 2 04/13/2019 ondansetron (ZOFRAN) injection 4 mg 2 04/1304/12/2019 prochlorperazine (COMPAZINE) injection 10 mg 1 04/13/2019 sodium chloride 0.9 % irrigation 1 04/13/20 19 sodium chloride 0.9% flush 0.5-20 mL 2 01/201904/12/2019 sodium chloride 0.9% infusion 1 04/13/2019 simvastatin (ZOCOR) tablet 20 mg 2 04/12/20 19 Lab Orders Without Results Count Last Ordered D ate First Ordered Date ALBUMIN 2 04/20/2019 04/14/2019 CALCIUM, IONIZED 1 04/17/2019 MAGNESIUM 1 04/17/2019 PHOSPHORUS 1 04/17/2019 BASIC METABOLIC PANEL 1 04/15/2019 TROPONIN I 1 04/14/2019 General Supply Count Last Ordered Date First Or dered Date WALKER W/ WHEELS (LESS THAN 350 LBS.) 2 04/2019 Diet Count Last Ordered Date First Orde red Date ADULT DISCHARGE DIET 1 04/24/2019 Nursing Count Last Ordered Date First Orde red Date DISCHARGE ACTIVITY 2 04/24/2019 DISCHARGE CALL PROVIDER 7 04/24/2019 DISCHARGE DRESSING 1 04/24/2019 MASTERSON CATHETER - DISCONTINUE 1 04/16/2019 TAP WATER ENEMA 1 04/12/2019 Consult Count Last Ordered Date First Orde red Date PHARMACY COMMUNICATION 1 04/15/2019 CONSULT TO ENDOCRINOLOGY NON-DIABETES 1 02/2019 IP CONSULT TO ONCOLOGY 1 04/14/2019 IP CONSULT TO VASCULAR ACCESS TEAM 1 2018 CONSULT TO WOUND CARE 2 04/13/2019 IP CONSULT TO GASTROENTEROLOGY 1 04/12/2019 Case Request Count Last Ordered Date First Orde red Date CASE REQUEST OPERATING ROOM 1 04/13/2019 documented in this encounter Care Teams Contracting Support Specialist Relationship Specialty Start Date End Date Julio César Briseno MD PCP - General 10/01/16 Eren Cr MD Referring Physician Medical Oncology 11/25/18 Yohana Bowen MD Radiation Oncologist Radiation Oncology 11/25/18 documented as of this encounter
--- OUTSIDE RECORDS SUMMARY | 2024-06-25 22:36 | XMS_ITS | Encounter Summary ---
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) Procedures OK OCTREOTIDE INJECTION, DEPOT Octreotide 28 Day Cycles - Carcinoid Eren Cr MD [id number] [address] [place] [address] Phone: tel: fax: [address] [address] Phone: tel: fax: Referral ID Status Reason Start Date Expiration Date V isits Requested Visits Authorized [id number] Authorized 11/28/2017 02/05/2025 1 150 Encounter Details Date Type Department Care Team (Late st Contact Info) Description 12/24/2018 4:00 PM CDT Infusion [facility] Oncology [address] [place] [address] for Advanced Medicine 7th [place] [address] 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); Neuroendocrine carcinoma (CMS/HCC) Social History Tobacco Use Types Packs/Day Years Used Date Smoking Tobacco: Never Smokeless Tobacco: Never Alcohol Use Standard Drinks/Week Comments Yes 1 (1 standard drink = 0.6 oz pur e alcohol) Comments No Sex and Gender Information Value Date Recorded Sex Assigned at Not on file 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 Gender Identity Not on file Sexual Orientation Straight 02/19/2021 9: 29 AM CDT Occupation Industry Job Start Date Job End Date retired Not on file Not on file Not on file documented as of this encounter Last Filed Vital Signs Vital Sign Reading Time Taken Comments Blood Pressure 132/72 12/24/2018 3:44 PM CDT Pulse 94 12/24/2018 3:44 PM CDT Temperature 36.3 ??C (97.3 ??F) 12/24/2018 3:44 PM CD T Respiratory Rate 16 12/24/2018 3:44 PM CDT Oxygen Saturation 94% 12/24/2018 3:44 PM CDT Inhaled Oxygen Concentration - - Weight 82.7 kg (182 lb 5.1 oz) 12/24/2018 3:44 P M CDT Height - - Body Mass Index 32.3 11/25/2018 9:15 AM CDT documented in this encounter Nursing Notes * Misa Castellanos RN - 12/24/2018 4:00 PM CDT Tolerated injection well into left dorsogluteal. Has return appointments. Discharged ambulatory. documented in this [...] 30 mg 30 mg, intramuscular, Once, On Sat12/24/18 at 1630, For 1 dose, Refrigerate. For IM administration only. 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),Neuroendocrine carcinoma (HCC) Given 12/24/2018 4:09 PM CDT 30 mg Left Dorsogluteal/Butt ock documented in this encounter Orders Medications Ordered That Brett ht Not Have Been Administered Count Last Ordered Date First Ordered Date octreotide LAR (SandoSTATIN LAR) extended release intramuscular injection 30 mg 1 12/24/2018 Appointment Requests Count Last Ordered Date Fi rst Ordered Date ONCBCN INJECTION APPOINTMENT REQUEST 1 12/06 documented in this encounter Care Teams Information Systems Planner Relationship Specialty Start Date End Date Julio César Briseno MD PCP - General 10/01/16 Eren Cr MD Referring Physician Medical Oncology 11/25/18 Yohana Bowen MD Radiation Oncologist Radiation Oncology 11/25/18 documented as of this encounter
--- OUTSIDE RECORDS SUMMARY | 2024-06-25 22:36 | XMS_ITS | Encounter Summary ---
Author Organization [facility] Address [address] [place] [address] Phone Care Team Providers Care Interventional Radiology Rn Name Role Phone Julio César Briseno MD Primary Care Provider Eren Cr MD Unavailable [phone] Yohana Bowen MD Unavailable Encounter Details Date Type Department Care Team (Late st Contact Info) Description 01/19/2019 Orders Only [facility] Oncology [address] 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 Gender Identity Not on file Sexual Orientation Straight 02/19/2021 9: 29 AM CDT Occupation Industry Job Start Date Job End Date retired Not on file Not on file Not on file documented as of this encounter Ordered Prescriptions Prescription Sig Dispense Quantity Refills Last Filled Start Date End Date octreotide (SandoSTATIN) 100 mcg/mL (1 mL) syringeIndications :Carcinoid Syndrome Inject 1 mL (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) under the skin 3 (three) times a day as needed (flushing, cramping, diarrhea) 21 Syringe 5 01/19/2019 04/24/2019 documented in this encounter Plan of Treatment Not on file documented as of this encounter Visit Diagnoses Not on filedocumented in this encounter Discontinued Medications Medication Sig Discontinue Reason Start Date End Da te octreotide (SandoSTATIN) 100 mcg/mL (1 mL) syringe Inject 1 mL (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) under the skin 3 (three) times a day as needed (flushing, cramping, diarrhea) Cost of medication 11/25/2018 01/19/2019 documented as of this encounter Care Teams Interventional Radiology Rn Relationship Specialty Start Date End Date Julio César Briseno MD PCP - General 10/01/16 Eren Cr MD Referring Physician Medical Oncology 11/25/18 Yohana Bowen MD Radiation Oncologist Radiation Oncology 11/25/18 documented as of this encounter
--- OUTSIDE RECORDS SUMMARY | 2024-06-25 22:36 | XMS_ITS | Encounter Summary ---
Author Organization [facility] Healthcare Address [address] [place] [address] Care Team Providers Care Label Maker Name Role Phone Julio César Briseno MD Primary Care Provider Eren Cr MD Unavailable [phone] Yohana Bowen MD Unavailable Encounter Details Date Type Department Care Team (Late st Contact Info) Description 03/19/2019 Orders Only [facility] Advanced Medicine Radiation Oncology [address] [facility] [place] [address] Hien Soto RN Neuroendocrine carcinoma (CMS/HCC) (Primary Dx) Social History Tobacco Use Types Packs/Day Years Used Date Smoking Tobacco: Never Smokeless Tobacco: Never Alcohol Use Standard Drinks/Week Comments Yes 1 (1 standard drink = 0.6 oz pur e alcohol) Comments No Sex and Gender Information Value Date Recorded Sex Assigned at Not on file 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 NPO 6 hours prior to procedure, patient will need a taxi driver. If on any blood thinners, stop taking 24 to 48 hours prior. If on Xarelto or Plavix, must stop taking 4 to 5 days prior. 04/15/19: Lutathera, CAM LL arrive at 0700. CBC and Immunodeficency labs ordered per study. Instructed to get injection 4 to 24 hours post PRRT Lodging Needed: no Patient aware of ALL appt and verbalized understanding. documented in this encounter Plan of Treatment Not on file documented as of this encounter Results * (ABNORMAL) Immune deficiency profile (03/30/2019 7:44 AM CDT) CD4 pct 44 31 - 64 % [facility] CD4 Absolute 233(L) 365 - 1,294 cells/mcL [facility] CD8 pct 21 12 - 40 % [facility] CD8 Absolute 108(L) 187 - 781 cells/mcL [facility] CD4/CD8 ratio 2.1 0.9 - 4.4 [facility] Blood specimen (specimen) 03/30/2019 7:44 AM CDT 03/30/2019 7:49 AM CDT us Yohana Bowen MD LAB BLOOD ORDERABLES Final Resul t [facility] [address] [place] [address] documented in this encounter Visit Diagnoses Diagnosis Neuroendocrine carcinoma (HCC)- Primary Other malignant neoplasm of unspecified site documented in this encounter Care Teams Label Maker Relationship Specialty Start Date End Date Julio César Briseno MD PCP - General 10/01/16 Eren Cr MD Referring Physician Medical Oncology 11/25/18 Yohana Bowen MD Radiation Oncologist Radiation Oncology 11/25/18 documented as of this encounter
--- OUTSIDE RECORDS SUMMARY | 2024-06-25 22:36 | XMS_ITS | Encounter Summary ---
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) Procedures SC OCTREOTIDE INJECTION, DEPOT Octreotide 28 Day Cycles - Carcinoid Eren Cr MD [address] [place] [address] Phone: tel: fax: [facility] [address] [address] Phone: tel: fax: Referral ID Status Reason Start Date Expiration Date V isits Requested Visits Authorized [id number] Authorized 11/28/2017 02/05/2025 1 150 Encounter Details Date Type Department Care Team (Late st Contact Info) Description 12/29/2018 9:15 AM CDT Lab [facility] Oncology [address] [place] [address] [place] [id number] Malignant neoplasm metastatic to liver (CMS/HCC); Neuroendocrine carcinoma (CMS/HCC) Social History Tobacco Use Types Packs/Day Years Used Date Smoking Tobacco: Never Smokeless Tobacco: Never Alcohol Use Standard Drinks/Week Comments Yes 1 (1 standard drink = 0.6 oz pur e alcohol) Comments No Sex and Gender Information Value Date Recorded Sex Assigned at Not on file 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 Gender Identity Not on file Sexual Orientation Straight 02/19/2021 9: 29 AM CDT Occupation Industry Job Start Date Job End Date retired Not on file Not on file Not on file documented as of this encounter Plan of Treatment Not on file documented as of this encounter Procedures Procedure Name Priority Date/Time Associated Diagnosis Comments DIFFERENTIAL AUTO STAT 12/29/2018 9:3 7 AM CDT Malignant neoplasm metastatic to liver (CMS/HCC) Neuroendocrine carcinoma (CMS/HCC) CBC WITH AUTO DIFFERENTIAL STAT 12/29/2018 9:37 AM CDT Malignant neoplasm metastatic to liver (CMS/HCC) Neuroendocrine carcinoma (CMS/HCC) CHROMOGRANIN A Routine 12/29/2018 9:34 AM CDT Malignant neoplasm metastatic to liver (CMS/HCC) Neuroendocrine carcinoma (CMS/HCC) COMPREHENSIVE METABOLIC PANEL STAT 12/29/2018 9:34 AM CDT Malignant neoplasm metastatic to liver (CMS/HCC) Neuroendocrine carcinoma (CMS/HCC) documented in this encounter Results * (ABNORMAL) Differential, auto (12/29/2018 9:37 AM CDT) Neutrophil abs 3.9 1.8 - 6.6 K/cumm JASON BLACK Comment:Testing performed by : [facility], [address] [place] [phone] Lymphocyte abs 0.7(L) 1.2 - 3.3 K/cumm JASON BLACK Comment:Testing performed by : [facility], [address] [place] [phone] Monocyte abs 0.4 0.2 - 1.2 K/cumm CERNER BJ Comment:Testing performed by : [facility], [address] [place] [phone] Eosinophil abs 0.1 0.0 - 0.5 K/cumm CERNER BJ Comment:Testing performed by : [facility], [address] [place] [phone] Basophil abs 0.0 0.0 - 0.2 K/cumm CERNER BJ Comment:Testing performed by : [facility], [address] [place] [phone] Neutrophil pct 76.3 % [facility]ER BJ Comment: Interpretive Data Percent cell count reference ranges are not reported, since discordance with absolute values may lead to misinterpretation of CBC data. Current Interpretive Data was last revised on 2017. Testing performed by: [facility], [address] [place] [phone] Lymphocyte pct 13.1 % CERNER [facility] Comment: Interpretive Data Percent cell count reference ranges are not reported, since discordance with absolute values may lead to misinterpretation of CBC data. Current Interpretive Data was last revised on 2017. Testing performed by: [facility], [address] [place] [phone] Monocyte pct 7.9 % CERNER BJ Comment:Testing performed by : [facility], [address] [place] [phone] Eosinophil pct 2.1 % CERNER BJ Comment:Testing performed by : [facility], [address] [place] [phone] Basophil pct 0.6 % C[facility]ER BJ Comment:Testing performed by : [facility], [address] [place] [phone] Blood specimen (specimen) 12/29/2018 9:37 AM CDT 12/29/2018 9:38 AM CDT us Eren Cr MD LAB BLOOD ORDERABLES Final Re sult [facility] [place] [address] * CBC with auto differential (12/29/2018 9:37 AM CDT) WBC 5.1 3.8 - 9.8 K/cumm [facility] Comment:Testing performed by : [facility], [address] [place], [place] [phone] Hgb 14.5 12.1 - 15.1 g/dL [facility] Comment:Testing performed by : [facility], [address] [place], [place] [phone] Hct 41.8 36.1 - 44.3 % [facility] Comment:Testing performed by : [place] [id number] Plt 159 140 - 440 K/cumm [facility] Comment:Testing performed by : [place] [id number] MPV 8.4 6.8 - 10.4 fL [facility] Comment:Testing performed by : [place] [id number] RBC 4.90 3.90 - 5.00 M/cumm [facility] Comment:Testing performed by : [place] [id number] MCV 85.3 80.0 - 97.6 fL [facility] Comment:Testing performed by : [place] [id number] MCH 29.6 26.7 - 33.7 pg [facility] Comment:Testing performed by : [place] [id number] MCHC 34.7 32.7 - 35.5 g/dL [facility] Comment:Testing performed by : [place] [id number] RDW CV 13.3 11.8 - 14.6 % [facility] Comment:Testing performed by : [place] [id number] NRBC abs 0.01 0.00 - 0.01 K/cumm [facility] Comment:Testing performed by : [address] [phone] Blood specimen (specimen) 12/29/2018 9:37 AM CDT 12/29/2018 9:38 AM CDT Eren Cr MD LAB BLOOD ORDERABLES Final Re sult [facility] [place] [address] * (ABNORMAL) Comprehensive metabolic panel (12/29/2018 9:34 AM CDT) Sodium 142 135 - 145 mmol/L [facility] Potassium, pl 3.4 3.3 - 4.9 mmol/L [facility] Chloride 104 97 - 110 mmol/L [facility] CO2 29 22 - 32 mmol/L [facility] Anion gap 9 2 - 15 mmol/L [facility] BUN 10 8 - 25 mg/dL [facility] Creatinine 0.86 0.60 - 1.10 mg/dL [facility] Glucose 135 70 - 199 mg/dL [...] interpretive data was last revised 2017. Calcium 11.1(H) 8.5 - 10.3 mg/dL [facility] Bilirubin, total 0.7 0.1 - 1.2 mg/dL [facility] Protein, pl 6.9 6.5 - 8.5 g/dL [facility] Albumin 4.3 3.5 - 5.0 g/dL [facility] Alk phos 81 40 - 130 Units/L [facility] ALT 15 7 - 45 Units/L [facility] AST 20 10 - 45 Units/L [facility] Blood specimen (specimen) 12/29/2018 9:34 AM CDT 12/29/2018 9:45 AM CDT Eren Cr MD LAB BLOOD ORDERABLES Final Re sult Performing Organization Address [facility] [[email or web address]] Co de Phone Number JASON BLACK [facility] [place] [address] * (ABNORMAL) Chromogranin A (12/29/2018 9:34 AM CDT) Chromogranin A 203(H) <93 ng/mL [facility] Comment: Impaired renal or hepatic function or treatment with proton pump inhibitors may result in artifactual elevations of Chromogranin A. ADDITIONAL INFORMATION This test was developed and its performance characteristics determined by [facility] in a manner consistent with CLIA requirements. [...] Performed by: [facility] - [address] [address] Blood specimen (specimen) 12/29/2018 9:34 AM CDT 12/29/2018 11:35 AM CDT Eren Cr MD LAB BLOOD ORDERABLES Final Re sult Performing Organization Address 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
--- OUTSIDE RECORDS SUMMARY | 2024-06-25 22:36 | XMS_ITS | Encounter Summary ---
Author Organization [facility] Address [address] [place] [address] Phone Care Team Providers Care Artificial Breeding Distributor Name Role Phone Julio César Briseno MD Primary Care Provider Eren Cr MD Unavailable [phone] Yohana Bowen MD Unavailable Encounter Details Date Type Department Care Team (Late st Contact Info) Description 03/04/2019 Orders Only [facility] Oncology [address] [place] [address] Mayela Williamson RN Social History Tobacco Use Types Packs/Day Years Used Date Smoking Tobacco: Never Smokeless Tobacco: Never Alcohol Use Standard Drinks/Week Comments Yes 1 (1 standard drink = 0.6 oz pur e alcohol) Comments No Sex and Gender Information Value Date Recorded Sex Assigned at Not on file 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 Gender Identity Not on file Sexual Orientation Straight 02/19/2021 9: 29 AM CDT Occupation Industry Job Start Date Job End Date retired Not on file Not on file Not on file documented as of this encounter Plan of Treatment Not on file documented as of this encounter Visit Diagnoses Not on filedocumented in this encounter Care Teams Artificial Breeding Distributor Relationship Specialty Start Date End Date Julio César Briseno MD PCP - General 10/01/16 Eren Cr MD Referring Physician Medical Oncology 11/25/18 Yohana Bowen MD Radiation Oncologist Radiation Oncology 11/25/18 documented as of this encounter
--- OUTSIDE RECORDS SUMMARY | 2024-06-25 22:36 | XMS_ITS | Encounter Summary ---
Author Organization [facility] Address [address] [place] [address] Phone Care Team Providers Care Garnett Machine Operator Helper Name Role Phone uJlio César Briseno MD Primary Care Provider Eren Cr MD Unavailable [phone] Yohana Bowen MD Unavailable Encounter Details Date Type Department Care Team (Late st Contact Info) Description 01/16/2019 Telephone [facility] Oncology [address] 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 Per [facility] specialty pharmacy [phone] the # 90 is over $ 300.00 This nurse called Caroline back and she tells this nurse she is going to check the Internet for a savings card. Also could her Mom get a lessor quantity. The answer is yes. Per the daughter she will do some investigating and call back next week. documented in this encounter Plan of Treatment Not on file documented as of this encounter Visit Diagnoses Not on filedocumented in this encounter Care Teams Garnett Machine Operator Helper Relationship Specialty Start Date End Date Julio César Briseno MD PCP - General 10/01/16 Eren Cr MD Referring Physician Medical Oncology 11/25/18 Yohana Bowen MD Radiation Oncologist Radiation Oncology 11/25/18 documented as of this encounter
--- OUTSIDE RECORDS SUMMARY | 2024-06-25 22:36 | XMS_ITS | Encounter Summary ---
Author Organization [facility] Address [address] [place] [address] Phone Care Team Providers Care Eyelet Machine Operator Name Role Phone Julio César Briseno MD Primary Care Provider Eren Cr MD Unavailable [phone] Yohana Bowen MD Unavailable Encounter Details Date Type Department Care Team (Late st Contact Info) Description 03/02/2019 10:15 AM CDT Office Visit [facility] Oncology [facility] 7th [place] [address] [place] [address] Eren Cr MD [address] [facility] [address] [place], [place] [id number] Diarrhea, unspecified type (Primary Dx); 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 (CMS/HCC); Neuroendocrine carcinoma (CMS/HCC) Social History Tobacco Use Types Packs/Day Years Used Date Smoking Tobacco: Never Smokeless Tobacco: Never Alcohol Use Standard Drinks/Week Comments Yes 1 (1 standard drink = 0.6 oz pur e alcohol) Comments No Sex and Gender Information Value Date Recorded Sex Assigned at Not on file 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 Gender Identity Not on file Sexual Orientation Straight 02/19/2021 9: 29 AM CDT Occupation Industry Job Start Date Job End Date retired Not on file Not on file Not on file documented as of this encounter Last Filed Vital Signs Vital Sign Reading Time Taken Comments Blood Pressure 135/81 03/02/2019 9:50 AM CDT Pulse 70 03/02/2019 9:50 AM CDT Temperature 37.1 ??C (98.8 ??F) 03/02/2019 9:50 AM CD T Respiratory Rate 18 03/02/2019 9:50 AM CDT Oxygen Saturation 97% 03/02/2019 9:50 AM CDT Inhaled Oxygen Concentration - - Weight - - Height - - Body Mass Index - - documented in this encounter Ordered Prescriptions Prescription Sig Dispense Quantity Refills Last Filled Start Date End Date diphenoxylate-atro pine (LOMOTIL) 2.5-0.025 mg per tabletIndications: diarrhea Take 1 tablet by mouth 4 (four) times a day as needed for diarrhea 30 tablet 3 03/02/2019 9 documented in this encounter Progress Notes * Sabrina Willard NP - 03/02/2019 10:15 AM CDT MEDICAL ONCOLOGY OUTPATIENT ROV NOTE La Chung : 1950 DATE OF VISIT: 03/02/19 Oncology History TREATMENT HISTORY: 1. CT abdomen [...] she also underwent right colectomy in [facility] OR by Dr. Greyson Reeves. [...] PRRT due to disease progression on octreotide. 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 She is accompanied by her sister. She is currently undergone PRRT and is s/p 2 cycles so far. Last treatment was02/18/19. She tolerates this well and feels she had more energy after the last dose. She has no N/V,fevers, chills, cough or SOB. No pain. Having diarrhea with baseline 5-6 BMs a day. Having occasional episodes of stool incontinence, and had 3 episodes yesterday. Also has urinary incontinence for some time and has seen a HEALTH INFORMATION PROVIDER for this in the past. She is currently in the process of moving to a new home. ALLERGIES: Allergies Allergen Reactions ??? Ezetimibe-Simvastatin Muscle pain and Unknown Muscle weakness ??? Ramipril Cough ROS: A complete review of systems was preformed and was negative other than those mentioned in the aboveinterval history. All other systems negative. OBJECTIVE: Most Recent Vitals: BP: 135/81 Temp: 37.1 ??C (98.8 ??F) Temp src: Oral Pulse: 70 Resp: 18 SpO2: 97 % PHYSICAL EXAM: ECOG PS: 0 General: well [...] sounds present. well healed abdominal surgical scars. Extremities: No cyanosis, clubbing or edema. Skin: No rash or open wounds. Neurological: No focal deficit. A&O x 4 LABS: All laboratories personally reviewed and discussed with patient during office visit, selected values included below. Lab Results Component Value Date WBC 3.1 (L) 03/02/2019 HGB 12.8 03/02/2019 HCT 36.6 03/02/2019 MCV 88.1 03/02/2019 LABPLAT 118 (L) 03/02/2019 NEUTROABS 2.3 03/02/2019 CMP: Lab Results Component Value Date/Time SODIUM 146 (H) 03/02/2019 09:24 AM POTASSIUM 3.7 03/02/2019 09:24 AM CO2 27 03/02/2019 09:24 AM BUNSER 9 03/02/2019 09:24 AM GLUCOSE 127 03/02/2019 09:24 AM CREATININE 0.83 03/02/2019 09:24 AM CALCIUM 10.7 (H) 03/02/2019 09:24 AM CHLORIDE 110 03/02/2019 09:24 AM ALBUMIN 4.0 03/02/2019 09:24 AM AST 25 03/02/2019 09:24 AM ALT 16 03/02/2019 09:24 AM ALKPHOS 69 03/02/2019 09:24 AM BILITOT 0.5 03/02/2019 09:24 AM PROT 6.4 (L) 03/02/2019 09:24 AM ANIONGAP 9 03/02/2019 09:24 AM Tumor Marker History Some values may be hidden. Unless noted otherwise, only the newest values recorded on each date aredisplayed. Tumor Markers Latest Ref Range 09/15/18 10/13/18 11/24/18 12/29/18 Chromogranin A <93 ng/mL 132 (A) 151 (A) 182 (A) 203 (A) (A) Abnormal value Comments are available for some flowsheets but are not being displayed. ASSESSMENT AND PLAN: Ms. 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 ??She comes in for continued treatment and follow-up. ??1.?Metastatic neuroendocrine tumor of the ilium: S/p [address] scan in 3 weeks. ROVhere in 4 weeks. Next PRRT scheduled for April with Dr. Bowen. Next Octreotide LAR will be after next PRRT in April. 2. Osseous metastasis: May explain the hypercalcemia. Discussed xgeva and reviewed May PET scan in detail. Has left humerus metastasis. Advised dental exam, and will plan to start injection at [facility] in4 weeks. 3. Diarrhea: Having episodes of stool incontinence. Prescription for lomotil provided. PT prescription for pelvic floor rehab provided today. This may help with urinary incontinence as well. MERLINE Redmond- Nurse Practitioner Medical Oncology German Teacher completed by using M*Modal Fluency Direct speaking software, therefore, transcriptionvariances may occur. Cosigned by Eren Cr Jr., MD at 03/02/2019 3:12 PM CDT documented in this encounter Plan of Treatment Not on file documented as of this encounter Results * Phosphorus (03/30/2019 7:44 AM CDT) Phosphorus, pl 3.0 2.3 - 4.5 mg/dL [facility] Blood specimen (specimen) 03/30/2019 7:44 AM CDT 03/30/2019 7:49 AM CDT Eren Cr MD LAB BLOOD ORDERABLES Final Re sult Performing Organization Address [facility] de Phone Number [place] [address] * (ABNORMAL) Chromogranin A (03/30/2019 7:44 AM CDT) Pathologist [facility] Chromogranin A 203(H) <93 ng/mL [facility] Comment: [...] absence of malignant disease. Test Performed by: [facility] [place] [address] Casket Trimmer: Immanuel Novak M.D. Ph.D.; CLIA# [id number] Blood specimen (specimen) 03/30/2019 7:44 AM CDT 03/30/2019 3:29 PM CDT Eren Cr MD LAB BLOOD ORDERABLES Final Re sult Performing Organization Address [facility] Co de Phone Number JASON BLACK [address] [place] [address] * (ABNORMAL) Comprehensive metabolic panel (03/30/2019 7:44 AM CDT) Pathologist [facility] Sodium 141 135 - 145 mmol/L [facility] Potassium, pl 4.1 3.3 - 4.9 mmol/L [facility] Chloride 104 97 - 110 mmol/L [facility] CO2 31 22 - 32 mmol/L [facility] Anion gap 6 2 - 15 mmol/L [facility] BUN 11 8 - 25 mg/dL [facility] Creatinine 0.93 0.60 - 1.10 mg/dL [facility] Glucose 120 70 - 199 mg/dL [facility] [...] 2017. Calcium 11.1(H) 8.5 - 10.3 mg/dL [facility] Bilirubin, total 1.0 0.1 - 1.2 mg/dL [facility] Protein, pl 6.9 6.5 - 8.5 g/dL [facility] Albumin 4.4 3.5 - 5.0 g/dL [facility] Alk phos 87 40 - 130 Units/L [facility] ALT 18 7 - 45 Units/L [facility] AST 30 10 - 45 Units/L [facility] Blood specimen (specimen) 03/30/2019 7:44 AM CDT 03/30/2019 7:49 AM CDT us Eren Cr MD LAB BLOOD ORDERABLES Final Re sult [facility] [address] [place], [place] [phone] * (ABNORMAL) CBC with auto differential (03/30/2019 7:42 AM CDT) Pathologist [facility] WBC 3.7(L) 3.8 - 9.8 K/cumm [facility] Comment:Testing performed by : [facility], [address] [place] [address] Hgb 14.3 12.1 - 15.1 g/dL [facility] Comment:Testing performed by : [facility], [address] [place], [place] [phone] Hct 40.5 36.1 - 44.3 % [facility] Comment:Testing performed by : [facility], [address] [place] [address] Plt 119(L) 140 - 440 K/cumm [facility] Comment:Testing performed by : [place] [address] MPV 8.0 6.8 - 10.4 fL [facility] Comment:Testing performed by : [place] [address] RBC 4.58 3.90 - 5.00 M/cumm [facility] Comment:Testing performed by : [facility], [address] [place] [address] MCV 88.6 80.0 - 97.6 fL [facility] Comment:Testing performed by : [place] [address] MCH 31.4 26.7 - 33.7 pg [facility] Comment:Testing performed by : [place] [address] MCHC 35.4 32.7 - 35.5 g/dL [facility] Comment:Testing performed by : [facility], [address] [place] [address] RDW CV 13.9 11.8 - 14.6 % [facility] Comment:Testing performed by : [place] [address] NRBC abs 0.01 0.00 - 0.01 K/cumm [facility] Comment:Testing performed by : [facility], [address] [place], [place] [phone] Blood specimen (specimen) 03/30/2019 7:42 AM CDT 03/30/2019 7:43 AM CDT us Eren Cr MD LAB BLOOD ORDERABLES Final Re sult [facility] [address] [place] [address] documented in this encounter Visit Diagnoses Diagnosis Diarrhea, unspecified type- Primary Malignant neoplasm metastatic to liver (HCC) Neuroendocrine carcinoma (HCC) Other malignant neoplasm of unspecified site documented in this encounter Discontinued Medications Medication Sig Discontinue Reason Start Date End Da te diphenoxylate-atropine (LOMOTIL) 2.5-0.025 mg per tabletIndications:diarr hea Take 1 tablet by mouth 4 (four) times a day as needed for diarrhea Reorder 12/02/2018 03/02/2019 documented as of this encounter Orders Appointment Requests Count Last Ordered Date Fi rst Ordered Date ONCBCN CLINIC APPOINTMENT REQUEST 2 019 03/02/2019 ONCBCN INJECTION APPOINTMENT REQUEST 1 03/09 ONCBCN LAB APPOINTMENT 1 03/30/2019 documented in this encounter Care Teams Eyelet Machine Operator Relationship Specialty Start Date End Date Julio César Briseno MD PCP - General 10/01/16 Eren Cr MD Referring Physician Medical Oncology 11/25/18 Yohana Bowen MD Radiation Oncologist Radiation Oncology 11/25/18 documented as of this encounter
--- OUTSIDE RECORDS SUMMARY | 2024-06-25 22:36 | XMS_ITS | Encounter Summary ---
Author Organization [facility] Address [address] [place] [address] Phone Care Team Providers Care Internet Developer Name Role Phone Julio César Briseno MD Primary Care Provider Eren Cr MD Unavailable [phone] Yohana Bowen MD Unavailable Encounter Details Date Type Department Care Team (Late st Contact Info) Description 12/24/[address] 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
--- OUTSIDE RECORDS SUMMARY | 2024-06-25 22:36 | XMS_ITS | Encounter Summary ---
Author Organization [facility] Address [address] [place] [address] Phone Care Team Providers Care Broadcast Technician Name Role Phone Julio César Briseno MD Primary Care Provider [phone] Eren Cr MD Unavailable [phone] Yohana Bowen MD Unavailable Encounter Details Date Type Department Care Team (Late st Contact Info) Description 04/09/2019 Orders Only [facility] Oncology [address] [facility] Advanced Medicine 7th [place] [address] [place] [address] Sabrina Willard, PRODUCTION CONTROL TECHNOLOGIST [address] [place], [place] [phone] Social History Tobacco Use Types Packs/Day Years Used Date Smoking Tobacco: Never Smokeless Tobacco: Never Alcohol Use Standard Drinks/Week Comments Yes 1 (1 standard drink = 0.6 oz pur e alcohol) Comments No Sex and Gender Information Value Date Recorded Sex Assigned at Not on file 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
--- OUTSIDE RECORDS SUMMARY | 2024-06-25 22:36 | XMS_ITS | Encounter Summary ---
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) Procedures NV OCTREOTIDE INJECTION, DEPOT Octreotide 28 Day Cycles - Carcinoid Eren Cr MD [address] [address] [place] [address] Phone: tel: fax: [facility] [address] [address] Phone: tel: fax: Referral ID Status Reason Start Date Expiration Date V isits Requested Visits Authorized [id number] Authorized 11/28/2017 02/05/2025 1 150 Encounter Details Date Type Department Care Team (Late st Contact Info) Description 12/29/2018 10:00 AM CDT Office Visit [facility] Oncology [address] 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 Gender Identity Not on file Sexual Orientation Straight 02/19/2021 9: 29 AM CDT Occupation Industry Job Start Date Job End Date retired Not on file Not on file Not on file documented as of this encounter Last Filed Vital Signs Vital Sign Reading Time Taken Comments Blood Pressure 103/66 12/29/2018 9:55 AM CDT Pulse 73 12/29/2018 9:55 AM CDT Temperature 36.7 ??C (98.1 ??F) 12/29/2018 9:55 AM CD T Respiratory Rate 18 12/29/2018 9:55 AM CDT Oxygen Saturation 96% 12/29/2018 9:55 AM CDT Inhaled Oxygen Concentration - - Weight - - Height - - Body Mass Index - - documented in this encounter Progress Notes * Eren Cr Jr., MD - 12/29/2018 10:00 AM CDT La Chung : 1950 DATE OF VISIT: 12/29/18 Cancer Staging Malignant neoplasm metastatic to liver [...] time, she also underwent right colectomy in [facility] [place] by Dr. Greyson Reeves. [...] neoplasm metastatic to liver (CMS/HCC) Active Treatment Plans for La Chung Oncology Chemotherapy Treatment: Octreotide 28 Day Cycles - Carcinoid Current day: Additional Day, Cycle 14 (Planned for 12/29/2018) Following planned day: Day 1, Cycle 15 (Planned for 02/18/2019) INTERVAL HISTORY Ms. La Chung is a 68 y.o. 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 She had her first PRRT last week and tolerated this well except for mild nausea during the infusion. She notes that her diarrhea is better after her octreotide. Overall, she is feeling well. She states [...] > 5 YEARS N/A 12/23/2018 ? ? NV REMOVAL OF TONSILS,<12 Y/O [...] Disp: , Rfl: ??? cholecalciferol (VITAMIN D-3) 5,000 unit tablet, Take 15,000 Units by mouth daily., Disp: , Rfl: ??? cholestyramine (QUESTRAN) 4 gram packet, cholestyramine (with sugar) 4 gram powder for susp in a packet, Disp: , Rfl: ??? coenzyme [id number] E (CO Q-10, WITH VIT E,) 100-5 mg-unit capsule, , Disp: , Rfl: ??? diphenoxylate-atropine (LOMOTIL) 2.5-0.025 mg per tablet, Take 1 tablet by mouth 4 (four) timesa day as needed for diarrhea, Disp: 30 tablet, Rfl: 3 ??? DULoxetine DR (CYMBALTA) 30 mg capsule, daily., Disp: , Rfl: ??? ergocalciferol (VITAMIN D) 50,000 unit capsule, Vitamin D2 50,000 unit capsule, Disp: , Rfl: ??? fluticasone propionate (FLONASE) 50 mcg/actuation nasal spray, fluticasone propionate 50 mcg/actuation nasal spray,suspension, Disp: , Rfl: ??? hydrocortisone (PROCTOSOL HC) 2.5 % rectal cream, Proctosol HC 2.5 % topical cream perineal applicator APPLY RECTALLY THREE TIMES A DAY, Disp: , Rfl: ??? MYRBETRIQ 50 mg tablet extended release 24 hr, Take 50 mg by mouth daily, Disp: , Rfl: 1 ??? octreotide (SandoSTATIN) 100 mcg/mL (1 mL) syringe, Inject 1 mL (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) under the skin 3 (three) times a day as needed (flushing, cramping, diarrhea), Disp: 90 Syringe, Rfl: 5 ??? olmesartan-hydrochlorothiazide (BENICAR HCT) 20-12.5 mg per tablet, Take 1 tablet by mouth daily, Disp: , Rfl: ??? simvastatin (ZOCOR) 20 mg tablet, , Disp: , Rfl: ??? wheat dextrin (BENEFIBER CLEAR SF, DEXTRIN, ORAL), , Disp: , Rfl: ??? cephalexin (KEFLEX) 500 mg capsule, cephalexin 500 mg capsule, Disp: , Rfl: ??? clotrimazole-betamethasone (LOTRISONE) cream, clotrimazole-betamethasone 1 %-0.05 % topical cream APPLY EXTERNALLY TO ABDOMEN TWICE DAILY NEEDED, Disp: , Rfl: ??? montelukast (SINGULAIR) 10 mg tablet, montelukast 10 mg tablet, Disp: , Rfl: ??? trospium (SANCTURA) 20 mg tablet, Take 20 mg by mouth., Disp: , Rfl: ??? valsartan-hydroCHLOROthiazide (DIOVAN-HCT) 80-12.5 mg per tablet, valsartan 80 mg-hydrochlorothiazide 12.5 mg tablet, Disp: , Rfl: REVIEW OF SYSTEMS: All other systems negative. PHYSICAL EXAMINATION: Performance Status: ECOG 0. Vital signs: Vitals BP 103/66 Pulse 73 Temp 36.7 ??C (98.1 ??F) Resp 18 SpO2 96% General: She is a 68 y.o. female [...] 24 hour(s)) Comprehensive metabolic panel Collection Time: 12/29/18 9:34 AM Result Value Ref Range Sodium 142 135 - 145 mmol/L Potassium, pl 3.4 3.3 - 4.9 mmol/L Chloride 104 97 - 110 mmol/L CO2 29 22 - 32 mmol/L Anion Gap 9 2 - 15 mmol/L BUN 10 8 - 25 mg/dL Creatinine 0.86 0.60 - 1.10 mg/dL Glucose 135 70 - 199 mg/dL Calcium 11.1 (H) 8.5 - 10.3 mg/dL Bilirubin, total 0.7 0.1 - 1.2 mg/dL Protein, pl 6.9 6.5 - 8.5 g/dL Albumin 4.3 3.5 - 5.0 g/dL Alk phos 81 40 - 130 Units/L ALT 15 7 - 45 Units/L AST 20 10 - 45 Units/L CBC with auto differential Collection Time: 12/29/18 9:37 AM Result Value Ref Range WBC 5.1 3.8 - 9.8 K/cumm Hgb 14.5 12.1 - 15.1 g/dL Hct 41.8 36.1 - 44.3 % Plt 159 140 - 440 K/cumm MPV 8.4 6.8 - 10.4 fL RBC 4.90 3.90 - 5.00 M/cumm MCV 85.3 80.0 - 97.6 fL MCH 29.6 26.7 - 33.7 pg MCHC 34.7 32.7 - 35.5 g/dL RDW CV 13.3 11.8 - 14.6 % NRBC Abs 0.01 0.00 - 0.01 K/cumm Differential, auto Collection Time: 12/29/18 9:37 AM Result Value Ref Range Neutrophil absolute 3.9 1.8 - 6.6 K/cumm Lymphocytes absolute 0.7 (L) 1.2 - 3.3 K/cumm Monocyte absolute 0.4 0.2 - 1.2 K/cumm Eosinophils absolute 0.1 0.0 - 0.5 K/cumm Basophils, abs 0.0 0.0 - 0.2 K/cumm Neutrophils 76.3 % Lymphocytes 13.1 % Monocytes 7.9 % Eosinophils 2.1 % Basophils 0.6 % Hematology Lab History Some values may be hidden. Unless noted otherwise, only the newest values recorded on each date aredisplayed. Labs - Hematology Latest Ref Range 10/13/18 11/24/18 12/24/18 12/29/18 WBC 3.8 - 9.8 K/cumm 6.1 5.4 6.0 5.1 Total Hb, POC 12.1 - 15.1 g/dL 14.4 14.2 13.1 14.5 Hct 36.1 - 44.3 % 42.4 41.1 39.6 41.8 Plt 140 - 440 K/cumm 153 135 (A) 138 (A) 159 Neutrophil abs 1.8 - 6.6 K/cumm 3.6 3.2 3.9 3.9 (A) Abnormal value Comments are available for some flowsheets but are not being displayed. Chem/LFT Lab History Some values may be hidden. Unless noted otherwise, only the newest values recorded on each date aredisplayed. Labs-Chem/LFT Latest Ref Range 10/13/18 10/21/18 11/24/18 12/29/18 Sodium 135 - 145 mmol/L 141 141 142 Creatinine 0.60 - 1.10 mg/dL 0.97 0.84 0.86 Bilirubin, total 0.1 - 1.2 mg/dL 0.5 0.8 0.7 AST 10 - 45 Units/L 23 25 20 ALT 7 - 45 Units/L 20 19 15 CrCl- Actual Body Weight (Cockcroft-Gault) 72.1 87.4 81.4 79.5 Tumor Marker History Some values may be hidden. Unless noted otherwise, only the newest values recorded on each date aredisplayed. Tumor Markers Latest Ref Range 08/11/18 09/15/18 10/13/18 11/24/18 Chromogranin A <93 ng/mL 132 (A) 132 (A) 151 (A) 182 (A) (A) Abnormal value Comments are available for some flowsheets but are not being displayed. IMAGES No results found. IMPRESSION AND PLAN: Ms. La Chung is a 68 y.o. Non- female with NET who presents for routine oncologic care. Her next PRRT would be in early February and we will see her then. . All of her questions were answered. She understands and was in agreement with the plan of care. She knows to call the office in the interim with any symptoms, questions, or concerns. documented in this encounter Plan of Treatment Not on file documented as of this encounter Results * (ABNORMAL) Chromogranin A (03/02/2019 9:24 AM CDT) Chromogranin A 232(H) <93 ng/mL [facility] Comment: Impaired renal or hepatic function or treatment with proton pump inhibitors may result in artifactual elevations of Chromogranin A. ADDITIONAL INFORMATION This test was developed and its performance characteristics determined by [facility] in a manner consistent with CLIA requirements. [...] Performed by: [facility] [address] [place] [address] Blood specimen (specimen) 03/02/2019 9:24 AM CDT 03/02/2019 10:29 AM CDT us Eren Cr MD LAB BLOOD ORDERABLES Final Re sult [facility] Department [place] [address] * (ABNORMAL) Comprehensive metabolic panel (03/02/2019 9:24 AM CDT) Sodium 146(H) 135 - 145 mmol/L [facility] Potassium, pl 3.7 3.3 - 4.9 mmol/L [facility] Chloride 110 97 - 110 mmol/L [facility] CO2 27 22 - 32 mmol/L [facility] Anion gap 9 2 - 15 mmol/L [facility] BUN 9 8 - 25 mg/dL [facility] Creatinine 0.83 0.60 - 1.10 mg/dL [facility] Glucose 127 70 - 199 mg/dL [facility] Comment: Interpretive Data Fasting glucose >/= [...] interpretive data was last revised 2017. Calcium 10.7(H) 8.5 - 10.3 mg/dL [facility] Bilirubin, total 0.5 0.1 - 1.2 mg/dL [facility] Protein, pl 6.4(L) 6.5 - 8.5 g/dL [facility] Albumin 4.0 3.5 - 5.0 g/dL [facility] Alk phos 69 40 - 130 Units/L [facility] ALT 16 7 - 45 Units/L [facility] AST 25 10 - 45 Units/L [facility] Blood specimen (specimen) 03/02/2019 9:24 AM CDT 03/02/2019 9:38 AM CDT us Eren Cr MD LAB BLOOD ORDERABLES Final Re sult [facility] Department [place] [address] * (ABNORMAL) CBC with auto differential (03/02/2019 9:22 AM CDT) WBC 3.1(L) 3.8 - 9.8 K/cumm [facility] Comment:Testing performed by : [facility], [address] [place] [phone] Hgb 12.8 12.1 - 15.1 g/dL [facility] Comment:Testing performed by : [facility], [address] [place] [phone] Hct 36.6 36.1 - 44.3 % [facility] Comment:Testing performed by : [facility], [address] [place] [phone] Plt 118(L) 140 - 440 K/cumm [facility] Comment:Testing performed by : [facility], [address] [place] [phone] MPV 8.0 6.8 - 10.4 fL [facility] Comment:Testing performed by : [address] [phone] RBC 4.15 3.90 - 5.00 M/cumm [facility] Comment:Testing performed by : [address] [phone] MCV 88.1 80.0 - 97.6 fL [facility] Comment:Testing performed by : [facility], [address] [place] [phone] MCH 30.8 26.7 - 33.7 pg [facility] Comment:Testing performed by : [facility], [address] [place] [phone] MCHC 34.9 32.7 - 35.5 g/dL [facility] Comment:Testing performed by : [facility], [address] [place] [phone] RDW CV 14.3 11.8 - 14.6 % [facility] Comment:Testing performed by : [facility], [address] [place] [phone] NRBC abs 0.02(H) 0.00 - 0.01 K/cumm [facility] Comment:Testing performed by : [facility], [address] [place] [phone] Blood specimen (specimen) 03/02/2019 9:22 AM CDT 03/02/2019 9:25 AM CDT Eren Cr MD LAB BLOOD ORDERABLES Final Re sult [facility] [place] [address] documented in this encounter Visit Diagnoses Diagnosis 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
--- OUTSIDE RECORDS SUMMARY | 2024-06-25 22:36 | XMS_ITS | Encounter Summary ---
Author Organization [facility] Address [address] [place] [address] Phone Care Team Providers Care Director Information Name Role Phone Julio César Briseno MD Primary Care Provider [phone] Eren Cr MD Unavailable Yohana Bowen MD Unavailable Encounter Details Date Type Department Care Team (Late st Contact Info) Description 12/24/2018 Orders Only [facility] Oncology [address] [place] [address] Mayela Williamson RN Social History Tobacco Use Types Packs/Day Years Used Date Smoking Tobacco: Never Smokeless Tobacco: Never Alcohol Use Standard Drinks/Week Comments Yes 1 (1 standard drink = 0.6 oz pur e alcohol) Comments No Sex and Gender Information Value Date Recorded Sex Assigned at Not on file 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
--- OUTSIDE RECORDS SUMMARY | 2024-06-25 22:36 | XMS_ITS | Encounter Summary ---
Author Organization [facility] Address [address] [place] [address] Care Team Providers Care Gate Services Supervisor Name Role Phone Julio César Briseno MD Primary Care Provider [phone] Eren Cr MD Unavailable [phone] Yohana Bowen MD Unavailable Reason for Referral * Diagnostic Imaging (Routine) - Closed Specialty Diagnoses / Procedures Referred By Contac t Referred To Contact Radiology Diagnoses Neuroendocrine carcinoma (HCC) Procedures CT Chest Abdomen Pelvis W Contrast Yohana Bowen MD Phone: tel: fax: [address] [phone] Referral ID Status Reason Start Date Expiration Date Visits Re quested Visits Authorized [id number] Closed 02/05/2019 08/16/2020 1 1 * Diagnostic Imaging (Routine) - Closed Specialty Diagnoses / Procedures Referred By Contellen t Referred To Contact Radiology Diagnoses Neuroendocrine carcinoma (HCC) Procedures IR PICC Line Placement > 5 Years Yohana Bowen MD Phone: tel: fax: [address] [phone] Referral ID Status Reason Start Date Expiration Date Visits Re quested Visits Authorized [id number] Closed 02/05/2019 08/16/2020 1 1 Encounter Details Date Type Department Care Team (Late st Contact Info) Description 02/05/2019 Orders Only [facility] Advanced Medicine Radiation Oncology [address] [facility] [place] [address] Hien Soto RN Neuroendocrine carcinoma (CMS/HCC) (Primary Dx) Social History Tobacco Use Types Packs/Day Years Used Date Smoking Tobacco: Never Smokeless Tobacco: Never Alcohol Use Standard Drinks/Week Comments Yes 1 (1 standard drink = 0.6 oz pur e alcohol) Comments No Sex and Gender Information Value Date Recorded Sex Assigned at Not on file Legal Sex Female 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 NPO 6 hours prior to procedure, patient will need a driver starting gate. If on any blood thinners, stop taking 24 to 48 hours prior. If on Xarelto or Plavix, must stop taking 4 to 5 days prior. 02/18/19: Lutathera, [facility] arrive at 0700. CBC and Immunodeficency labs ordered per study. Instructed to get injection 4 to 24 hours post PRRT 03/23/19: CT CAP With Contrast 1 month after 2nd PRRT Infusion scheduled. [facility] 3rd floor, arrive 1300 for 1320. NPO 2 hours prior to scan. Lodging Needed: none Patient aware of ALL appt and verbalized understanding. documented in this encounter Plan of Treatment Not on file documented as of this encounter Results * CT Chest Abdomen Pelvis W Contrast (03/23/2019 2:26 PM CDT) Anatomical Region Laterality Modality Body N/A Computed Tomogra phy 03/23/2019 3:00 PM CDT Impressions 03/23/2019 3:00 PM CDT 1. No change when compared to the prior study. Stable metastatic disease including stable pulmonary nodules, liver lesions, capsular hepatic lesions, omental lesion, vaginal fornix lesion, and stable retroperitoneal lymphadenopathy. 2. Stable densities in the region of the urethra which may represent stones within urethral diverticulum versus prior surgery. 3. Interval colitis which may be medication related involving the descending colon sigmoid colon and rectum. Electronically signed by: Fly Benavidez M.D. Narrative 03/23/2019 3:00 PM CDT EXAMINATION: CT CHEST, ABDOMEN AND PELVIS WITH INTRAVENOUS CONTRAST TECHNIQUE: Standard CT of the chest, abdomen and pelvis was performed after the administration of intravenous contrast. ??Studies were performed after the administration of the following amount of Optiray 350: ??100 mL HISTORY: Neuroendocrine carcinoma. FINDINGS: Comparison is made to prior study of 10/06/2018 Chest: Note is made of multiple tiny lymph nodes throughout the mediastinum with short axes of less than 1 cm unchanged compared to the prior study. The heart size is moderately enlarged. 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 Again seen is a 3 mm left upper lobe nodule at -248. Mild basilar atelectasis noted. Abdomen/pelvis: The spleen is mildly enlarged. The pancreas is unremarkable. Again seen are metastases along the liver capsule. An example is one adjacent to segment 6 that measures 1.2 x 0.9 cm. This is unchanged compared to the prior study and can be seen at table position -437. Some perihepatic ascites is seen with thickening of the right hemidiaphragm and nodularity along the diaphragmatic surface also in keeping with metastatic disease that is stable. Again seen is a lesion within segment 6 that measures 1.8 x 1.9 cm which is similar to the prior study. Renal cysts can be seen in the right kidney but no hydronephrosis. Left kidney is unremarkable. The abdominal aorta is normal in caliber. A lymph node is seen anterior to the inferior vena cava at slice position -543 that measures the same at 1 x 1 cm. When compared to the prior study, there has been slight increased thickening of the colonic wall in the region of the rectosigmoid. Few diverticula are seen. However, findings are most suggestive of a colitis involving the descending colon, sigmoid colon and rectum. His may be medication related or post infectious. The pancreas is unremarkable. There is a small ventral hernia containing fat but no bowel. Surgical changes are seen within the distal ileum and cecum. Tiny nodule is seen within the omentum at slice position -645 without change measuring 7 mm. A right vaginal fornix metastasis is also seen that measures 1.3 x 2.1 cm densities are seen in the region of the urethra which may represent stones a urethral diverticulum. Procedure Note Fly Benavidez MD - 03/23/2019 EXAMINATION: CT CHEST, ABDOMEN AND PELVIS WITH INTRAVENOUS CONTRAST TECHNIQUE: Standard CT of the chest, abdomen and pelvis was performed after the administration of intravenous contrast. Studies were performed after the administration of the following amount of Optiray 350: 100 mL HISTORY: Neuroendocrine carcinoma. FINDINGS: Comparison is made to prior study of 10/06/2018 Chest: Note is made of multiple tiny lymph nodes throughout the mediastinum with short axes of less than 1 cm unchanged compared to the prior study. The heart size is moderately enlarged. 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 Again seen is a 3 mm left upper lobe nodule at -248. Mild basilar atelectasis noted. Abdomen/pelvis: The spleen is mildly enlarged. The pancreas is unremarkable. Again seen are metastases along the liver capsule. An example is one adjacent to segment 6 that measures 1.2 x 0.9 cm. This is unchanged compared to the prior study and can be seen at table position -437. Some perihepatic ascites is seen with thickening of the right hemidiaphragm and nodularity along the diaphragmatic surface also in keeping with metastatic disease that is stable. Again seen is a lesion within segment 6 that measures 1.8 x 1.9 cm which is similar to the prior study. Renal cysts can be seen in the right kidney but no hydronephrosis. Left kidney is unremarkable. The abdominal aorta is normal in caliber. A lymph node is seen anterior to the inferior vena cava at slice position -543 that measures the same at 1 x 1 cm. When compared to the prior study, there has been slight increased thickening of the colonic wall in the region of the rectosigmoid. Few diverticula are seen. However, findings are most suggestive of a colitis involving the descending colon, sigmoid colon and rectum. His may be medication related or post infectious. The pancreas is unremarkable. There is a small ventral hernia containing fat but no bowel. Surgical changes are seen within the distal ileum and cecum. Tiny nodule is seen within the omentum at slice position -645 without change measuring 7 mm. A right vaginal fornix metastasis is also seen that measures 1.3 x 2.1 cm densities are seen in the region of the urethra which may represent stones a urethral diverticulum. IMPRESSION: 1. No change when compared to the prior study. Stable metastatic disease including stable pulmonary nodules, liver lesions, capsular hepatic lesions, omental lesion, vaginal fornix lesion, and stable retroperitoneal lymphadenopathy. 2. Stable densities in the region of the urethra which may represent stones within urethral diverticulum versus prior surgery. 3. Interval colitis which may be medication related involving the descending colon sigmoid colon and rectum. Electronically signed by: Fly Benavidez M.D. Yohana Bowen MD IMG CT PROCEDURES Final Result * IR PICC Line Placement > 5 Years (02/17/2019 1:05 PM CDT) Anatomical Region Laterality Modality Body N/A Radio Fluoroscop y 02/17/2019 1:23 PM CDT Impressions 02/17/2019 4:04 PM CDT Successful nontunneled catheter placement. ??Left arm should be used for future PICC line placement given diminutive right arm veins. PLAN: The catheter is ready for immediate use. ??When treatment is completed, this catheter can be removed at the bedside according to standard hospital protocol. ?? Dictated by: Shalini Claros M.D. The radiology attending physician has personally reviewed this study, and had reviewed and/or edited this written report and agrees with it. Electronically signed by: Chayito Christopher M.D. Narrative 02/17/2019 4:04 PM CDT EXAMINATION: ??NONTUNNELED CENTRAL VENOUS CATHETER PLACEMENT (STD) HISTORY: 68-year-old female with neuroendocrine tumor referred for PICC placement for Lutathera treatment. ATTENDING PRESENCE: ??Chayito Christopher M.D., the attending radiologist was present from the beginning to the end of the procedure. ?? SEDATION: The patient did not require conscious sedation for the procedure. TECHNIQUE: ?? The risks, benefits and alternatives were discussed and informed consent was obtained. ??Prior to beginning the procedure, Hamel Protocol was used to confirm the patient's identity and planned procedure. ??Fluoroscopy time has been recorded in the electronic medical record. Maximum sterile barriers including cap, mask, hand hygiene, sterile gloves, sterile gown, large sterile drape and 2% chlorhexidine for cutaneous antisepsis were used. ??The skin over the right brachial vein was sterilely prepped, draped and [...] dilating the tract, a dual lumen PICC (trimmed to 33 cm) was inserted over the guidewire. The catheter was flushed with 100U/ml heparin and was not secured in place. A sterile dressing was applied. ?? ESTIMATED BLOOD LOSS: Minimal. CONDITION: Stable DISCHARGED TO: home. FINDINGS: The final fluoroscopic image demonstrates the catheter with its tip at the cavoatrial junction. ??No complications are seen. ??The right brachial vein is extremely diminutive. Procedure Note Chayito Christopher MD - 02/17/2019 EXAMINATION: NONTUNNELED CENTRAL VENOUS CATHETER PLACEMENT (STD) HISTORY: 68-year-old female with neuroendocrine tumor referred for PICC placement for Lutathera treatment. ATTENDING PRESENCE: Chayito Christopher M.D., the attending radiologist was present from the beginning to the end of the procedure. SEDATION: The patient did not require conscious sedation for the procedure. TECHNIQUE: The risks, benefits and alternatives were discussed and informed consent was obtained. Prior to beginning the procedure, Hamel Protocol was used to confirm the patient's identity and planned procedure. Fluoroscopy time has been recorded in the electronic medical record. Maximum sterile barriers including cap, mask, hand hygiene, sterile gloves, sterile gown, large sterile drape and 2% chlorhexidine for cutaneous antisepsis were used. The skin over the right brachial vein was sterilely prepped, draped and [...] dilating the tract, a dual lumen PICC (trimmed to 33 cm) was inserted over the guidewire. The catheter was flushed with 100U/ml heparin and was not secured in place. A sterile dressing was applied. ESTIMATED BLOOD LOSS: Minimal. CONDITION: Stable DISCHARGED TO: home. FINDINGS: The final fluoroscopic image demonstrates the catheter with its tip at the cavoatrial junction. No complications are seen. The right brachial vein is extremely diminutive. IMPRESSION: Successful nontunneled catheter placement. Left arm should be used for future PICC line placement given diminutive right arm veins. PLAN: The catheter is ready for immediate use. When treatment is completed, this catheter can be removed at the bedside according to standard hospital protocol. Dictated by: Shalini Claros M.D. The radiology attending physician has personally reviewed this study, and had reviewed and/or edited this written report and agrees with it. Electronically signed by: Chayito Christopher M.D. Yohana Bowen MD IM IR PROCEDURES Final Result * (ABNORMAL) CBC with auto differential (02/16/2019 12:22 PM CDT) WBC 4.3 3.8 - 9.8 K/cumm [facility] Comment:Testing performed by : [facility], [address] [place] [phone] Hgb 14.1 12.1 - 15.1 g/dL [facility] Comment:Testing performed by : [facility], [address] [place] [phone] Hct 40.6 36.1 - 44.3 % [facility] Comment:Testing performed by : [facility], [address] [place], [place] [phone] Plt 139(L) 140 - 440 K/cumm [facility] Comment:Testing performed by : [facility], [address] [place], [place] [phone] MPV 8.1 6.8 - 10.4 fL [facility] Comment:Testing performed by : [facility], [address] [place], [place] [phone] RBC 4.68 3.90 - 5.00 M/cumm [facility] Comment:Testing performed by : [facility], [address] [place], [place] [phone] MCV 86.8 80.0 - 97.6 fL [facility] Comment:Testing performed by : [place] [phone] MCH 30.1 26.7 - 33.7 pg [facility] Comment:Testing performed by : [facility], [address] [place], [place] [phone] MCHC 34.7 32.7 - 35.5 g/dL [facility] Comment:Testing performed by : [facility], [address] [place], [place] [phone] RDW CV 13.9 11.8 - 14.6 % [facility] Comment:Testing performed by : [address] [phone] NRBC abs 0.00 0.00 - 0.01 K/cumm [facility] Comment:Testing performed by : [facility], [address] [place] [phone] Blood specimen (specimen) 02/16/2019 12:22 PM CDT 02/16/2019 12:27 PM CDT us Yohana Bowen MD LAB BLOOD ORDERABLES Final Resul t [facility] Department [place] [address] * (ABNORMAL) Immune deficiency profile (02/16/2019 12:21 PM CDT) [facility] CD4 pct 51 31 - 64 % [facility] CD4 Absolute 322(L) 365 - 1,294 cells/mcL [facility] CD8 pct 28 12 - 40 % [facility] CD8 Absolute 180(L) 187 - 781 cells/mcL [facility] CD4/CD8 ratio 1.8 0.9 - 4.4 [facility] Blood specimen (specimen) 02/16/2019 12:21 PM CDT 02/16/2019 12:49 PM CDT us Yohana Bowen MD LAB BLOOD ORDERABLES Final Resul t [facility] [place] [address] * (ABNORMAL) Comprehensive metabolic panel (02/16/2019 12:21 PM CDT) [facility] Sodium 140 135 - 145 mmol/L [facility] Potassium, pl 3.9 3.3 - 4.9 mmol/L [facility] Comment:Hemolyzed; (++); pot assium value may be falsely elevated by as much as 0.3 - 0.5 mmol/L. Suggest redraw and reanalysis. Chloride 102 97 - 110 mmol/L [facility] CO2 28 22 - 32 mmol/L [facility] Anion gap 10 2 - 15 mmol/L [facility] BUN 16 8 - 25 mg/dL [facility] Creatinine 0.81 0.60 - 1.10 mg/dL [facility] Glucose 119 70 - 199 mg/dL [facility] [...] interpretive data was last revised 2017. Calcium 10.9(H) 8.5 - 10.3 mg/dL [facility] Bilirubin, total 0.5 0.1 - 1.2 mg/dL [facility] Protein, pl 6.8 6.5 - 8.5 g/dL [facility] Albumin 4.2 3.5 - 5.0 g/dL [facility] Alk phos 80 40 - 130 Units/L [facility] ALT 19 7 - 45 Units/L [facility] AST 29 10 - 45 Units/L [facility] Comment:Hemolyzed; result ma y be falsely elevated. Blood specimen (specimen) 02/16/2019 12:21 PM CDT 02/16/2019 1:02 PM CDT Yohana Bowen MD LAB BLOOD ORDERABLES Final Resul t [facility] [place] [address] documented in this encounter Visit Diagnoses Diagnosis Neuroendocrine carcinoma (HCC)- Primary Other malignant neoplasm of unspecified site 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 documented in this encounter Care Teams Gate Services Supervisor Relationship Specialty Start Date End Date Julio César Briseno MD PCP - General 10/01/16 Eren Cr MD Referring Physician Medical Oncology 11/25/18 Yohana Bowen MD Radiation Oncologist Radiation Oncology 11/25/18 documented as of this encounter
--- OUTSIDE RECORDS SUMMARY | 2024-06-25 22:36 | XMS_ITS | Encounter Summary ---
Author Organization [facility] Healthcare Address [address] [place] [address] Care Team Providers Care Regulator Assembler Name Role Phone Julio César Briseno MD Primary Care Provider [phone] Eren Cr MD Unavailable [phone] Yohana Bowen MD Unavailable Encounter Details Date Type Department Care Team (Late st Contact Info) Description 02/13/2019 Telephone [facility] Radiology [address] [place] [address] Yvonne Villeda, RN Social History Tobacco Use Types Packs/Day Years Used Date Smoking Tobacco: Never Smokeless Tobacco: Never Alcohol Use Standard Drinks/Week Comments Yes 1 (1 standard drink = 0.6 oz pur e alcohol) Comments No Sex and Gender Information Value Date Recorded Sex Assigned at Not on file 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 PHYSICAL Gender Identity Not on file Sexual Orientation Straight 02/19/2021 9: 29 AM CDT Occupation Industry Job Start Date Job End Date retired Not on file Not on file Not on file documented as of this encounter Miscellaneous Notes * Telephone Encounter - Yvonne Villeda RN - 02/13/2019 3:06 PM CDT No answer for pre-procedure call. documented in this encounter Plan of Treatment Not on file documented as of this encounter Visit Diagnoses Not on filedocumented in this encounter Care Teams Regulator Assembler Relationship Specialty Start Date End Date Julio César Briseno MD PCP - General 10/01/16 Eren Cr MD Referring Physician Medical Oncology 11/25/18 Yohana Bowen MD Radiation Oncologist Radiation Oncology 11/25/18 documented as of this encounter
--- OUTSIDE RECORDS SUMMARY | 2024-06-25 22:36 | XMS_ITS | Encounter Summary ---
Author Organization [facility] Address [address] [place] [address] Phone Care Team Providers Care Parts Puller Name Role Phone Julio César Briseno MD Primary Care Provider Eren Cr MD Unavailable [phone] Yohana Bowen MD Unavailable Encounter Details Date Type Department Care Team (Late st Contact Info) Description 03/24/2019 Orders Only [facility] Oncology [address] [place] [address] Mayela Williamson RN Social History Tobacco Use Types Packs/Day Years Used Date Smoking Tobacco: Never Smokeless Tobacco: Never Alcohol Use Standard Drinks/Week Comments Yes 1 (1 standard drink = 0.6 oz pur e alcohol) Comments No Sex and Gender Information Value Date Recorded Sex Assigned at Not on file 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
--- OUTSIDE RECORDS SUMMARY | 2024-06-25 22:36 | XMS_ITS | Encounter Summary ---
Author Organization [facility] Healthcare Address [address] [place] [address] Care Team Providers Care Administrative Support Technician Name Role Phone Julio César Briseno MD Primary Care Provider Eren Cr MD Unavailable [phone] Yohana Bowen MD Unavailable Encounter Details Date Type Department Care Team (Late st Contact Info) Description 02/16/2019 Telephone [facility] Radiology [address] [place] [address] Minerva Tavares RN Social History Tobacco Use Types Packs/Day Years Used Date Smoking Tobacco: Never Smokeless Tobacco: Never Alcohol Use Standard Drinks/Week Comments Yes 1 (1 standard drink = 0.6 oz pur e alcohol) Comments No Sex and Gender Information Value Date Recorded Sex Assigned at Not on file 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 Gender Identity Not on file Sexual Orientation Straight 02/19/2021 9: 29 AM CDT Occupation Industry Job Start Date Job End Date retired Not on file Not on file Not on file documented as of this encounter Miscellaneous Notes * Telephone Encounter - Minerva Tavares RN - 02/16/2019 4:14 PM CDT Preprocedure Phone Call Procedure Time Verified: Yes Arrival Time Verified: Yes Procedure Location Verified: Yes Medical History Reviewed: Yes NPO Status Reinforced: No Ride and Caregiver Arranged: No Patient Knows to Bring Current Medications: Yes Patient Knows to Bring CPAP: No Is Patient on Home Ventilator?: No Is Patient on Blood Thinners?: No documented in this encounter Plan of Treatment Not on file documented as of this encounter Visit Diagnoses Not on filedocumented in this encounter Care Teams Administrative Support Technician Relationship Specialty Start Date End Date Julio César Briseno MD PCP - General 10/01/16 Eren Cr MD Referring Physician Medical Oncology 11/25/18 Yohana Bowen MD Radiation Oncologist Radiation Oncology 11/25/18 documented as of this encounter
--- OUTSIDE RECORDS SUMMARY | 2024-06-25 22:36 | XMS_ITS | Encounter Summary ---
Author Organization [facility] Address [address] [place] [address] Phone Care Team Providers Care Safety Aide Name Role Phone Julio César Briseno MD Primary Care Provider Eren Cr MD Unavailable [phone] Yohana Bowen MD Unavailable Encounter Details Date Type Department Care Team (Late st Contact Info) Description 03/02/2019 9:30 AM CDT Lab [facility] Oncology [facility] 7th [place] [address] [place] [id number] Malignant neoplasm metastatic to liver (CMS/HCC); Neuroendocrine carcinoma (CMS/HCC) Social History Tobacco Use Types Packs/Day Years Used Date Smoking Tobacco: Never Smokeless Tobacco: Never Alcohol Use Standard Drinks/Week Comments Yes 1 (1 standard drink = 0.6 oz pur e alcohol) Comments No Sex and Gender Information Value Date Recorded Sex Assigned at Not on file 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 Gender Identity Not on file Sexual Orientation Straight 02/19/2021 9: 29 AM CDT Occupation Industry Job Start Date Job End Date retired Not on file Not on file Not on file documented as of this encounter Plan of Treatment Not on file documented as of this encounter Procedures Procedure Name Priority Date/Time Associated Diagnosis Comments CHROMOGRANIN A Routine 03/02/2019 9:24 AM CDT Malignant neoplasm metastatic to liver (CMS/HCC) Neuroendocrine carcinoma (CMS/HCC) COMPREHENSIVE METABOLIC PANEL STAT 03/02/2019 9:24 AM CDT Malignant neoplasm metastatic to liver (CMS/HCC) Neuroendocrine carcinoma (CMS/HCC) DIFFERENTIAL AUTO Routine 03/02/2019 9:2 2 AM CDT Malignant neoplasm metastatic to liver (CMS/HCC) Neuroendocrine carcinoma (CMS/HCC) CBC WITH AUTO DIFFERENTIAL Routine 03/02/2019 9:22 AM CDT Malignant neoplasm metastatic to liver (CMS/HCC) Neuroendocrine carcinoma (CMS/HCC) documented in this encounter Results * (ABNORMAL) Chromogranin A (03/02/2019 9:24 AM CDT) Chromogranin A 232(H) <93 ng/mL [facility] Comment: Impaired renal [...] absence of malignant disease. Test Performed by: [facility] [address] [place] [address] Blood specimen (specimen) 03/02/2019 9:24 AM CDT 03/02/2019 10:29 AM CDT us Eren Cr MD LAB BLOOD ORDERABLES Final Re sult [facility] One [facility] Department [place] [address] * (ABNORMAL) Comprehensive metabolic panel (03/02/2019 9:24 AM CDT) Sodium 146(H) 135 - 145 mmol/L [facility] Potassium, pl 3.7 3.3 - 4.9 mmol/L [facility] Chloride 110 97 - 110 mmol/L [facility] CO2 27 22 - 32 mmol/L [facility] Anion gap 9 2 - 15 mmol/L [facility] BUN 9 8 - 25 mg/dL [facility] Creatinine 0.83 0.60 - 1.10 mg/dL [facility] Glucose 127 70 - 199 mg/dL [facility] [...] 2017. Calcium 10.7(H) 8.5 - 10.3 mg/dL [facility] Bilirubin, total 0.5 0.1 - 1.2 mg/dL [facility] Protein, pl 6.4(L) 6.5 - 8.5 g/dL [facility] Albumin 4.0 3.5 - 5.0 g/dL [facility] Alk phos 69 40 - 130 Units/L [facility] ALT 16 7 - 45 Units/L [facility] AST 25 10 - 45 Units/L [facility] Blood specimen (specimen) 03/02/2019 9:24 AM CDT 03/02/2019 9:38 AM CDT us Eren Cr MD LAB BLOOD ORDERABLES Final Re sult [facility] One [facility] Department [place] [address] * (ABNORMAL) Differential, auto (03/02/2019 9:22 AM CDT) Neutrophil abs 2.3 1.8 - 6.6 K/cumm [facility] Comment:Testing performed by : [facility], [address] [place] [phone] Lymphocyte abs 0.3(L) 1.2 - 3.3 K/cumm [facility] Comment:Testing performed by : [facility], [address] [place] [phone] Monocyte abs 0.3 0.2 - 1.2 K/cumm [facility] Comment:Testing performed by : [facility], [address] [place] [phone] Eosinophil abs 0.1 0.0 - 0.5 K/cumm [facility] Comment:Testing performed by : [facility], [address] [place] [phone] Basophil abs 0.0 0.0 - 0.2 K/cumm [facility] Comment:Testing performed by : [facility], [address] [place] [phone] Neutrophil pct 75.3 % [facility] Comment: Interpretive Data Percent cell count reference ranges are not reported, since discordance with absolute values may lead to misinterpretation of CBC data. Current Interpretive Data was last revised on 2017. Testing performed by: [facility], [address] [place] [phone] Lymphocyte pct 9.2 % [facility] Comment: Interpretive Data Percent cell count reference ranges are not reported, since discordance with absolute values may lead to misinterpretation of CBC data. Current Interpretive Data was last revised on 2017. Testing performed by: [facility], [address] [place] [phone] Monocyte pct 11.2 % [facility] Comment:Testing performed by : [facility], [address] [place] [phone] Eosinophil pct 3.2 % [facility] Comment:Testing performed by : [facility], [address] [place] [phone] Basophil pct 1.1 % [facility] Comment:Testing performed by : [facility], [address] [place] [phone] Blood specimen (specimen) 03/02/2019 9:22 AM CDT 03/02/2019 9:25 AM CDT us Eren Cr MD LAB BLOOD ORDERABLES Final Re sult [facility] One [facility] Department [place] [address] * (ABNORMAL) CBC with auto differential (03/02/2019 9:22 AM CDT) WBC 3.1(L) 3.8 - 9.8 K/cumm [facility] Comment:Testing performed by : [facility], [address] [place] [phone] Hgb 12.8 12.1 - 15.1 g/dL [facility] Comment:Testing performed by : [facility], [address] [place] [phone] Hct 36.6 36.1 - 44.3 % [facility] Comment:Testing performed by : [facility], [address] [place] [phone] Plt 118(L) 140 - 440 K/cumm [facility] Comment:Testing performed by : [facility], [address] [place] [phone] MPV 8.0 6.8 - 10.4 fL [facility] Comment:Testing performed by : [facility], [address] [place] [phone] RBC 4.15 3.90 - 5.00 M/cumm [facility] Comment:Testing performed by : [facility], [address] [place] [phone] MCV 88.1 80.0 - 97.6 fL [facility] Comment:Testing performed by : [address] [phone] MCH 30.8 26.7 - 33.7 pg [facility] Comment:Testing performed by : [facility], [address] [place] [phone] MCHC 34.9 32.7 - 35.5 g/dL [facility] Comment:Testing performed by : [facility], [address] [place] [phone] RDW CV 14.3 11.8 - 14.6 % [facility] Comment:Testing performed by : [facility], [address] [place] [phone] NRBC abs 0.02(H) 0.00 - 0.01 K/cumm [facility] Comment:Testing performed by : [facility], [address] [place] [phone] Blood specimen (specimen) 03/02/2019 9:22 AM CDT 03/02/2019 9:25 AM CDT Eren Cr MD LAB BLOOD ORDERABLES Final Re sult [facility] One [facility] Department [place] [address] documented in this encounter Visit Diagnoses Diagnosis Malignant neoplasm metastatic to liver (HCC) Neuroendocrine carcinoma (HCC) Other malignant neoplasm of unspecified site documented in this encounter Orders Appointment Requests Count Last Ordered Date Fi rst Ordered Date ONCBCN LAB APPOINTMENT 1 03/02/2019 documented in this encounter Care Teams Safety Aide Relationship Specialty Start Date End Date Julio César Briseno MD PCP - General 10/01/16 Eren Cr MD Referring Physician Medical Oncology 11/25/18 Yohana Bowen MD Radiation Oncologist Radiation Oncology 11/25/18 documented as of this encounter
--- OUTSIDE RECORDS SUMMARY | 2024-06-25 22:36 | XMS_ITS | Encounter Summary ---
Author Organization [facility] Facility Care Team Providers Care Mobile Home Lot Utility Worker Name Role Phone Julio César Briseno MD Primary Care Provider [phone] Eren Cr MD Unavailable [phone] Yohana Bowen MD Unavailable Encounter Details Date Type Department Care Team (Latest Contact Info) Description 02/17/2019 Travel Social History Tobacco Use Types Packs/Day Years Used Date Smoking Tobacco: Never Smokeless Tobacco: Never Alcohol Use Standard Drinks/Week Comments Yes 1 (1 standard drink = 0.6 oz pur e alcohol) Comments No Sex and Gender Information Value Date Recorded Sex Assigned at Not on file 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 Gender Identity Not on file Sexual Orientation Straight 02/19/2021 9: 29 AM CDT Occupation Industry Job Start Date Job End Date retired Not on file Not on file Not on file documented as of this encounter Plan of Treatment Not on file documented as of this encounter Visit Diagnoses Not on filedocumented in this encounter Care Teams Mobile Home Lot Utility Worker Relationship Specialty Start Date End Date Julio César Briseno MD PCP - General 10/01/16 Eren Cr MD Referring Physician Medical Oncology 11/25/18 Yohana Bowen MD Radiation Oncologist Radiation Oncology 11/25/18 documented as of this encounter
--- OUTSIDE RECORDS SUMMARY | 2024-06-25 22:36 | XMS_ITS | Encounter Summary ---
Author Organization [facility] Address [address] [place] [address] Phone Care Team Providers Care Nurse Navigator Name Role Phone Julio César Briseno MD Primary Care Provider [phone] Eren Cr MD Unavailable [phone] Yohana Bowen MD Unavailable Encounter Details Date Type Department Care Team (Late st Contact Info) Description 03/30/2019 8:00 AM CDT Lab [facility] Oncology [facility] 7th [place] [address] [place] [id number] Malignant neoplasm metastatic to liver (CMS/HCC); Neuroendocrine carcinoma (CMS/HCC) Social History Tobacco Use Types Packs/Day Years Used Date Smoking Tobacco: Never Smokeless Tobacco: Never Alcohol Use Standard Drinks/Week Comments Yes 1 (1 standard drink = 0.6 oz pur e alcohol) Comments No Sex and Gender Information Value Date Recorded Sex Assigned at Not on file 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 Gender Identity Not on file Sexual Orientation Straight 02/19/2021 9: 29 AM CDT Occupation Industry Job Start Date Job End Date retired Not on file Not on file Not on file documented as of this encounter Plan of Treatment Not on file documented as of this encounter Procedures Procedure Name Priority Date/Time Associated Diagnosis Comments IMMUNE DEFICIENCY PROFILE Routine 03/30/2019 7:44 AM CDT Neuroendocrine carcinoma (CMS/HCC) CHROMOGRANIN A Routine 03/30/2019 7:44 AM CDT Malignant neoplasm metastatic to liver (CMS/HCC) Neuroendocrine carcinoma (CMS/HCC) PHOSPHORUS Routine 03/30/2019 7:44 AM CDT Malignant neoplasm metastatic to liver (CMS/HCC) Neuroendocrine carcinoma (CMS/HCC) COMPREHENSIVE METABOLIC PANEL STAT 03/30/2019 7:44 AM CDT Malignant neoplasm metastatic to liver (CMS/HCC) Neuroendocrine carcinoma (CMS/HCC) DIFFERENTIAL AUTO Routine 03/30/2019 7:4 2 AM CDT Malignant neoplasm metastatic to liver (CMS/HCC) Neuroendocrine carcinoma (CMS/HCC) CBC WITH AUTO DIFFERENTIAL Routine 03/30/2019 7:42 AM CDT Malignant neoplasm metastatic to liver (CMS/HCC) Neuroendocrine carcinoma (CMS/HCC) documented in this encounter Results * (ABNORMAL) Immune deficiency profile (03/30/2019 7:44 AM CDT) Pathologist [facility] CD4 pct 44 31 - 64 % [facility] CD4 Absolute 233(L) 365 - 1,294 cells/mcL [facility] CD8 pct 21 12 - 40 % [facility] CD8 Absolute 108(L) 187 - 781 cells/mcL [facility] CD4/CD8 ratio 2.1 0.9 - 4.4 [facility] Blood specimen (specimen) 03/30/2019 7:44 AM CDT 03/30/2019 7:49 AM CDT us Yohana Bowen MD LAB BLOOD ORDERABLES Final Resul t [facility] [address] [place] [address] * (ABNORMAL) Comprehensive metabolic panel (03/30/2019 7:44 AM CDT) Pathologist [facility] Sodium 141 135 - 145 mmol/L [facility] Potassium, pl 4.1 3.3 - 4.9 mmol/L [facility] Chloride 104 97 - 110 mmol/L [facility] CO2 31 22 - 32 mmol/L [facility] Anion gap 6 2 - 15 mmol/L [facility] BUN 11 8 - 25 mg/dL [facility] Creatinine 0.93 0.60 - 1.10 mg/dL [facility] Glucose 120 70 - 199 mg/dL [facility] [...] 2017. Calcium 11.1(H) 8.5 - 10.3 mg/dL [facility] Bilirubin, total 1.0 0.1 - 1.2 mg/dL [facility] Protein, pl 6.9 6.5 - 8.5 g/dL [facility] Albumin 4.4 3.5 - 5.0 g/dL [facility] Alk phos 87 40 - 130 Units/L [facility] ALT 18 7 - 45 Units/L [facility] AST 30 10 - 45 Units/L [facility] Blood specimen (specimen) 03/30/2019 7:44 AM CDT 03/30/2019 7:49 AM CDT us Eren Cr MD LAB BLOOD ORDERABLES Final Re sult [facility] [address] [place], [place] [id number] * (ABNORMAL) Chromogranin A (03/30/2019 7:44 AM CDT) Chromogranin A 203(H) <93 ng/mL [facility] Comment: Impaired renal or hepatic function or treatment with proton pump inhibitors may result in artifactual elevations of Chromogranin A. ADDITIONAL INFORMATION This test was developed and its performance characteristics determined by [facility] in a manner consistent with [...] absence of malignant disease. Test Performed by: [place] [address] Sales Representative [employer]: Immanuel Novak M.D. Ph.D.; CLIA# [id number] Blood specimen (specimen) 03/30/2019 7:44 AM CDT 03/30/2019 3:29 PM CDT Eren Cr MD LAB BLOOD ORDERABLES Final Re sult Performing Organization Address [facility] Co de Phone Number [facility] [address] [place] [address] * Phosphorus (03/30/2019 7:44 AM CDT) Pathologist [facility] Phosphorus, pl 3.0 2.3 - 4.5 mg/dL [facility] Blood specimen (specimen) 03/30/2019 7:44 AM CDT 03/30/2019 7:49 AM CDT Eren Cr MD LAB BLOOD ORDERABLES Final Re sult Performing Organization Address [facility] Co de Phone Number [facility] [address] [place] [address] * (ABNORMAL) Differential, auto (03/30/2019 7:42 AM CDT) Neutrophil abs 2.5 1.8 - 6.6 K/cumm [facility] Comment:Testing performed by : [facility], [address] [place] [phone] Lymphocyte abs 0.4(L) 1.2 - 3.3 K/cumm [facility] Comment:Testing performed by : [facility], [address] [place] [phone] Monocyte abs 0.7 0.2 - 1.2 K/cumm [facility] Comment:Testing performed by : [facility], [address] [place] [phone] Eosinophil abs 0.1 0.0 - 0.5 K/cumm [facility] Comment:Testing performed by : [facility], [address] [place] [phone] Basophil abs 0.1 0.0 - 0.2 K/cumm [facility] Comment:Testing performed by : [facility], [address] [place] [phone] Neutrophil pct 66.8 % [facility] Comment: Interpretive Data Percent cell count reference ranges are not reported, since discordance with absolute values may lead to misinterpretation of CBC data. Current Interpretive Data was last revised on 2017. Testing performed by: [facility], [address] [place] [phone] Lymphocyte pct 10.6 % [facility] Comment: Interpretive Data Percent cell count reference ranges are not reported, since discordance with absolute values may lead to misinterpretation of CBC data. Current Interpretive Data was last revised on 2017. Testing performed by: [facility], [address] [place] [phone] Monocyte pct 19.1 % [facility] Comment:Testing performed by : [facility], [address] [place] [phone] Eosinophil pct 2.1 % [facility] Comment:Testing performed by : [facility], [address] [place] [phone] Basophil pct 1.4 % [facility] Comment:Testing performed by : [facility], [address] [place] [phone] Blood specimen (specimen) 03/30/2019 7:42 AM CDT 03/30/2019 7:43 AM CDT us Eren Cr MD LAB BLOOD ORDERABLES Final Re sult [facility] 1 [place] [address] * (ABNORMAL) CBC with auto differential (03/30/2019 7:42 AM CDT) WBC 3.7(L) 3.8 - 9.8 K/cumm [facility] Comment:Testing performed by : [facility], [address] [place] [phone] Hgb 14.3 12.1 - 15.1 g/dL [facility] Comment:Testing performed by : [address] [phone] Hct 40.5 36.1 - 44.3 % [facility] Comment:Testing performed by : [address] [phone] Plt 119(L) 140 - 440 K/cumm [facility] Comment:Testing performed by : [address] [phone] MPV 8.0 6.8 - 10.4 fL [facility] Comment:Testing performed by : [address] [phone] RBC 4.58 3.90 - 5.00 M/cumm [facility] Comment:Testing performed by : [address] [phone] MCV 88.6 80.0 - 97.6 fL [facility] Comment:Testing performed by : [address] [phone] MCH 31.4 26.7 - 33.7 pg [facility] Comment:Testing performed by : [address] [phone] MCHC 35.4 32.7 - 35.5 g/dL [facility] Comment:Testing performed by : [address] [phone] RDW CV 13.9 11.8 - 14.6 % [facility] Comment:Testing performed by : [facility], [address] [facility] [phone] NRBC abs 0.01 0.00 - 0.01 K/cumm [facility] Comment:Testing performed by : [facility], [address] [facility] [phone] Blood specimen (specimen) 03/30/2019 7:42 AM CDT 03/30/2019 7:43 AM CDT us Eren Cr MD LAB BLOOD ORDERABLES Final Re sult [facility] [address] [place] [address] documented in this encounter Visit Diagnoses Diagnosis Malignant neoplasm metastatic to liver (HCC) Neuroendocrine carcinoma (HCC) Other malignant neoplasm of unspecified site documented in this encounter Orders Appointment Requests Count Last Ordered Date Fi rst Ordered Date ONCBCN LAB APPOINTMENT 1 03/30/2019 documented in this encounter Care Teams Nurse Navigator Relationship Specialty Start Date End Date Julio César Briseno MD PCP - General 10/01/16 Eren Cr MD Referring Physician Medical Oncology 11/25/18 Yohana Bowen MD Radiation Oncologist Radiation Oncology 11/25/18 documented as of this encounter
--- OUTSIDE RECORDS SUMMARY | 2024-06-25 22:36 | XMS_ITS | Encounter Summary ---
Author Organization [facility] Address [address] [place] [address] Phone Care Team Providers Care Precinct Police Captain Name Role Phone Julio César Briseno MD Primary Care Provider Eren Cr MD Unavailable [phone] Yohana Bowen MD Unavailable Encounter Details Date Type Department Care Team (Late st Contact Info) Description 12/24/2018 Orders Only [facility] Oncology [address] [place] [address] Mayela Williamson RN Neuroendocrine carcinoma (CMS/HCC) (Primary Dx) Social History Tobacco Use Types Packs/Day Years Used Date Smoking Tobacco: Never Smokeless Tobacco: Never Alcohol Use Standard Drinks/Week Comments Yes 1 (1 standard drink = 0.6 oz pur e alcohol) Comments No Sex and Gender Information Value Date Recorded Sex Assigned at Not on file 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
--- OUTSIDE RECORDS SUMMARY | 2024-06-25 22:36 | XMS_ITS | Encounter Summary ---
Author Organization Formerly [facility] Address [address] [place] [address] Care Team Providers Care Principal Java Software Engineer Name Role Phone Julio César Briseno MD Primary Care Provider [phone] Eren Cr MD Unavailable [phone] Yohana Bowen MD Unavailable Reason for Referral * Diagnostic Imaging (Routine) - Closed Specialty Diagnoses / Procedures Referred By Contac t Referred To Contact Radiology Diagnoses Neuroendocrine carcinoma (HCC) Procedures IR PICC Line Placement > 5 Years Yohana Bowen MD Phone: tel: fax: [address] [address] Referral ID Status Reason Start Date Expiration Date Visits Re quested Visits Authorized [id number] Closed 02/05/2019 08/16/2020 1 1 Reason for Visit * Diagnostic Imaging (Routine) - Closed Specialty Diagnoses / Procedures Referred By Contac t Referred To Contact Radiology Diagnoses Neuroendocrine carcinoma (HCC) Procedures IR PICC Line Placement > 5 Years Yohana Bowen MD Phone: tel: fax: [address] [address] Referral ID Status Reason Start Date Expiration Date Visits Re quested Visits Authorized [id number] Closed 02/05/2019 08/16/2020 1 1 Encounter Details Date Type Department Care Team (Latest Contact Info) Description 02/17/2019 11:12 AM CDT - 02/17/2019 1:15 PM CDT Hospital [facility] [address] [place] [address] Yohana Bowen MD [address] [facility] [address] [place] [address] Neuroendocrine carcinoma (CMS/HCC) Discharge Disposition: Discharge to home or self care Social History Tobacco Use Types Packs/Day Years Used Date Smoking Tobacco: Never Smokeless Tobacco: Never Alcohol Use Standard Drinks/Week Comments Yes 1 (1 standard drink = 0.6 oz pur e alcohol) Comments No Sex and Gender Information Value Date Recorded Sex Assigned at Not on file 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 Gender Identity Not on file Sexual Orientation Straight 02/19/2021 9: 29 AM CDT Occupation Industry Job Start Date Job End Date retired Not on file Not on file Not on file documented as of this encounter Last Filed Vital Signs Vital Sign Reading Time Taken Comments Blood Pressure 151/75 02/17/2019 1:06 PM CDT Pulse 72 02/17/2019 1:06 PM CDT Temperature 36 ??C (96.8 ??F) 02/17/2019 1:06 PM CDT Respiratory Rate 16 02/17/2019 1:06 PM CDT Oxygen Saturation 93% 02/17/2019 1:06 PM CDT Inhaled Oxygen Concentration - - Weight - - Height - - Body Mass Index - - documented in this encounter Discharge Diagnoses Diagnosis Other malignant neuroendocrine tumors (HCC) - OTHER MALIGNANT NEUROENDOCRINE TUMORS documented in this encounter Discharge Instructions * Discharge Instructions* Juliet Pat PA - 02/17/2019 12:00 PM CDT Interventional Radiology Outpatient Discharge Instructions/Note Diagnosis: Lutathera therapy Procedure: Peripherally Inserted Central Line Placement Limitations: [] No lifting greater than 5 pounds with [] Right [] Left arm for 7 days. [] You received medication that may affect your judgement. ?? Stay with a responsible person today. ?? Do not drive, operate machinery, make any legal or important decisions, or drink alcohol tomorrow. ?? No smoking unless another adult [...] site clean and dry. [x] You may shower today. No submerging the catheter in water (i.e. swimming pools, hot tubs, or baths). [] Change the dressing daily and if it becomes wet or dirty. [x] Cover entire area with plastic and tape down edges before showering to keep site clean and dry.(i.e. Press N Seal plastic wrap or Ziploc bags) [] The suture at your dialysis access [...] draining. To contact an Interventional Radiologist at [facility] call [phone] Saturday through Saturday from 7:30am-4:30pm. At all other times call [phone] and ask that the Interventional Radiologist be paged. To contact an Interventional Radiologist at [facility] call [phone] Saturday through Saturday from 7:30am-3:30pm. Special instructions: [...] at Please come to: [] 3rd Floor [facility] [] 4th floor [facility] [] [facility] [] [facility] Please call [phone] to schedule a follow up appointment. You need to return in documented in this encounter Medications at Time of Discharge simvastatin (ZOCOR) 20 mg tablet Take 1 tablet (20 mg total) by mouth nightly ascorbic acid, vitamin C, 500 mg capsuleIndicati ons:supplement Take 1 tablet by mouth consumer loan specialist before breakfast 07/04/2016 4 cephalexin (KEFLEX) 500 mg capsule cephalexin 500 mg capsule 9 cholecalciferol (VITAMIN D-3) 5,000 unit tablet Take 15,000 Units by mouth daily. 9 cholestyramine (QUESTRAN) 4 gram packet cholestyramine (with sugar) 4 gram powder for susp in a packet 9 clotrimazole-be tamethasone (LOTRISONE) cream Apply 1 Application topically daily as needed (rash) 4 coenzyme [id number] 100-5 mg-unit capsuleIndicati ons:supplement Take 1 tablet by mouth consumer loan specialist before breakfast 4 diphenoxylate-a tropine (LOMOTIL) 2.5-0.025 mg per tabletIndicatio ns:diarrhea Take 1 tablet by mouth 4 (four) times a day as needed for diarrhea 30 tablet 3 12/02/[address] (CYMBALTA) 30 mg capsule daily. 9 ergocalciferol (VITAMIN D) 50,000 unit capsule Vitamin D2 50,000 unit capsule 9 fluticasone propionate (FLONASE) 50 mcg/actuation nasal sprayIndication s:Allergic Rhinitis Administer 2 sprays into each nostril daily as needed for rhinitis or allergies 4 hydrocortisone (PROCTOSOL HC) 2.5 % rectal cream Proctosol HC 2.5 % topical cream perineal applicator APPLY RECTALLY THREE TIMES A DAY 0 montelukast (SINGULAIR) 10 mg tablet Take 1 tablet (10 mg total) by mouth as needed (allergies) 4 MYRBETRIQ 50 mg tablet extended release 24 hr Take 50 mg by mouth daily 1 09/29/2018 9 octreotide (SandoSTATIN) 100 mcg/mL (1 mL) syringeIndicati ons:Carcinoid Syndrome Inject 1 mL (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) under the skin 3 (three) times a day as needed (flushing, cramping, diarrhea) 21 Syringe 5 01/19/2019 9 octreotide (SandoSTATIN) 50 mcg/mL (1 mL) syringe every 30 (thirty) days 04/09/2016 2 olmesartan-hydr ochlorothiazide (BENICAR HCT) 20-12.5 mg per tabletIndicatio ns:hypertension Take 1 tablet by mouth every morning 05/14/2019 05/21/20 2 4 trospium (SANCTURA) 20 mg tablet Take 20 mg by mouth. 06/15/2018 9 valsartan-hydro CHLOROthiazide (DIOVAN-HCT) 80-12.5 mg per tablet valsartan 80 mg-hydrochlorothiaz shaq 12.5 mg tablet 9 wheat dextrin (BENEFIBER CLEAR SF, DEXTRIN, ORAL) 9 documented as of this encounter Discharge Disposition Disposition Code Departure Means Destination Discharge to home or self care documented in this encounter Miscellaneous Notes * Post-Procedure Note - Shalini Claros MD - 02/17/2019 1:03 PM CDT Radiology Brief Post Procedure Note Attending: Dr. Christopher Director Enterprise Data Architecture: Juliet Waddell Sedation/Anesthesia: Local Pre-Op/Pre-Procedure Diagnosis: neuroendocrine cancer Post-Op/Post-Procedure Diagnosis: same Procedure Performed: PICC Procedure Findings: diminutive right vein, technical success Complications: None Estimated Blood Loss: None Specimens: None Condition: Stable Full report to follow. * Pre-Procedure Note - Shalini Claros MD - 02/17/2019 11:43 AM CDT Radiology Procedure Plan ?? Indication: neuroendocine tumor for lutathera ?? Planned Procedure: PICC documented in this encounter Plan of Treatment Not on file documented as of this encounter Procedures Procedure Name Priority Date/Time Associated Diagnosis Comments IR PICC LINE PLACEMENT > 5 YEARS Schedule Routine, Read Routine (OP Routine) 02/17/2019 1:05 PM CDT Neuroendocrine carcinoma (CMS/HCC) documented in [...] was obtained. ??Prior to beginning the procedure, [place] Protocol was used to confirm the patient's [...] was obtained. Prior to beginning the procedure, [place] Protocol was used to confirm the patient's [...] 100 unit/mL injection Code/trauma/sedation medication, Starting on Sat02/17/19 at 1259, Indications: Maintain Patency of Indwelling Vascular CatheterIndications:Maintain Patency of Indwelling Vascular Catheter Given 02/17/2019 12:59 PM CDT 5 mL lidocaine (XYLOCAINE) 10 mg/mL (1 %) injection Code/trauma/sedation medication, Starting on Sat02/17/19 at 1234, Intra-Procedure (IR), Indications: Administration of Local AnesthesiaIndications:Adminis tration of Local Anesthesia Given 02/17/2019 12:34 PM CDT 3 mL Right Brachial lidocaine (XYLOCAINE) 10 mg/mL (1 %) injection Code/trauma/sedation medication, Starting on Sat02/17/19 at 1246, Intra-Procedure (IR), Indications: Administration of Local AnesthesiaIndications:Adminis tration of Local Anesthesia Given 02/17/2019 12:46 PM CDT 1 mL Right Brachial lidocaine (XYLOCAINE) 10 mg/mL (1 %) injection Code/trauma/sedation medication, Starting on Sat02/17/19 at 1253, Intra-Procedure (IR), Indications: Administration of Local AnesthesiaIndications:Adminis tration of Local Anesthesia Given 02/17/2019 12:53 PM CDT 3 mL Right Brachial documented in this encounter Active and Recently Administered Medications Times are shown in CDT. PRN Medication Order 02/15/2019 02/16/2019 02/17/2019 heparin 100 unit/mL injection (COMPLETED) Code/trauma/sedation medication, Starting on Sat02/17/19 at 1259, Indications: Maintain Patency of Indwelling Vascular Catheter 1259 (Given - Provid er: SERGEY Estrada - Comment: picc) lidocaine (XYLOCAINE) 10 mg/mL (1 %) injection (COMPLETED) Code/trauma/sedation medication, Starting on Sat02/17/19 at 1234, Intra-Procedure (IR), Indications: Administration of Local Anesthesia 1234 (Given - Provid er: Shalini Claros MD - Comment: well tolerated) lidocaine (XYLOCAINE) 10 mg/mL (1 %) injection (COMPLETED) Code/trauma/sedation medication, Starting on Sat02/17/19 at 1246, Intra-Procedure (IR), Indications: Administration of Local Anesthesia 1246 (Given - Provid er: Chayito Christopher MD) lidocaine (XYLOCAINE) 10 mg/mL (1 %) injection (COMPLETED) Code/trauma/sedation medication, Starting on Sat02/17/19 at 1253, Intra-Procedure (IR), Indications: Administration of Local Anesthesia 1253 (Given - Provid er: Chayito Christopher MD) documented in this encounter Care Teams Principal Java Software Engineer Relationship Specialty Start Date End Date Julio César Briseno MD PCP - General 10/01/16 Eren Cr MD Referring Physician Medical Oncology 11/25/18 Yohana Bowen MD Radiation Oncologist Radiation Oncology 11/25/18 documented as of this encounter
--- OUTSIDE RECORDS SUMMARY | 2024-06-25 22:36 | XMS_ITS | Encounter Summary ---
Author Organization [facility] Healthcare Address [address] [place] [address] Care Team Providers Care Concrete Engineering Technician Name Role Phone Julio César Briseno MD Primary Care Provider [phone] Eren Cr MD Unavailable [phone] Yohana Bowen MD Unavailable Encounter Details Date Type Department Care Team (Latest Contact Info) Description 04/12/2019 5:20 AM CDT - 04/12/2019 11:59 PM CDT Hospital Encounter [facility] [place] [address] Discharge Disposition: Discharge to home or self [...] skin daily for 21 days 8.4 mL 9 05/15/20 19 ascorbic acid, vitamin C, 500 mg capsuleIndications :supplement Take 1 tablet by mouth scleroscope tester before breakfast 6 06/20/20 24 cholecalciferol (VITAMIN D-3) 2,000 unit capsule Take 1 capsule (2,000 Units total) by mouth daily 30 capsule 2 9 11/17/19 23 cholecalciferol (VITAMIN D-3) 5,000 unit tablet Take 15,000 Units by mouth daily. 04/24/20 cholestyramine (QUESTRAN) 4 gram packet cholestyramine (with sugar) 4 gram powder for susp in a packet 04/24/20 clotrimazole-betam ethasone (LOTRISONE) cream Apply 1 Application topically daily as needed (rash) 06/20/20 24 coenzyme [id number] 100-5 mg-unit capsuleIndications :supplement Take 1 tablet by mouth scleroscope tester before breakfast 06/20/20 24 diphenoxylate-atro pine (LOMOTIL) 2.5-0.025 mg per tabletIndications: diarrhea Take 1 tablet by mouth 4 (four) times a day as needed for diarrhea 30 tablet 3 9 04/24/[address] (CYMBALTA) 30 mg capsule daily. 04/24/[address] (CYMBALTA) 30 mg capsule Take 1 capsule (30 mg total) by mouth daily 30 capsule 2 9 01/14/20 24 ergocalciferol (VITAMIN D) 50,000 unit capsule Vitamin D2 50,000 unit capsule 04/24/20 fluticasone propionate (FLONASE) 50 mcg/actuation nasal sprayIndications:A llergic Rhinitis Administer 2 sprays into each nostril daily as needed for rhinitis or allergies 06/20/20 24 hydrocortisone (PROCTOSOL HC) 2.5 % rectal cream Proctosol HC 2.5 % topical cream perineal applicator APPLY RECTALLY THREE TIMES A DAY 01/13/20 20 montelukast (SINGULAIR) 10 mg tablet Take 1 tablet (10 mg total) by mouth as needed (allergies) 06/14/20 24 MYRBETRIQ 50 mg tablet extended release 24 hr Take 50 mg by mouth daily 1 9 04/24/20 19 octreotide (SandoSTATIN) 100 mcg/mL (1 mL) syringeIndications :Carcinoid Syndrome Inject 1 mL (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) under the skin 3 (three) times a day as needed (flushing, cramping, diarrhea) 21 Syringe 5 9 04/24/20 19 octreotide (SandoSTATIN) 50 mcg/mL (1 mL) syringe every 30 (thirty) days 6 11/14/19 22 olmesartan-hydroch lorothiazide (BENICAR HCT) 20-12.5 mg per tabletIndications: hypertension Take 1 tablet by mouth every morning 9 05/21/20 24 oxybutynin (DITROPAN) 5 mg tabletIndications: Bladder Hyperactivity Take 1 tablet (5 mg total) by mouth 2 (two) times a day for 14 days 28 tablet 9 04/09/20 22 oxyCODONE (ROXICODONE) 5 mg immediate release tabletIndications: Pain Take 1 tablet (5 mg total) by mouth every 4 (four) hours as needed for pain 10 tablet 9 01/13/20 20 documented as of this encounter Discharge Disposition Disposition Code Departure Means Destination Discharge to home or self care documented in this encounter Plan of Treatment Not on file documented as of this encounter Procedures Procedure Name Priority Date/Time Associated Diagnosis Comments CT BODY OUTSIDE CONSULT ED Urgent/IP Urgent 04/12/2019 5:22 AM CDT documented in this encounter Results * CT Body Outside Consult (04/12/2019 5:22 [...] images may or may not represent the [place] source data set and thus may contain changes that may lower the accuracy of this second-opinion interpretation. Electronically signed by: Chalino Abernathy M.D., MPH Narrative 04/12/2019 1:12 PM CDT EXAMINATION: RADIOLOGY CONSULTATION ON OUTSIDE IMAGING STUDY STUDY INITIALLY PERFORMED: 04/11/2019 at [facility]. TYPE OF STUDY: Multiple computed tomographic images [...] IMAGING STUDY STUDY INITIALLY PERFORMED: 04/11/2019 at [facility]. TYPE OF STUDY: Multiple computed tomographic images [...] images may or may not represent the [place] source data set and thus may contain changes that may lower the accuracy of this second-opinion interpretation. Electronically signed by: Chalino Abernathy M.D., MPH Woodrow Cerna MD IMG CT PROCEDURES Final Result documented in this encounter Visit Diagnoses Not on filedocumented in this encounter Care Teams Concrete Engineering Technician Relationship Specialty Start Date End Date Julio César Briseno MD PCP - General 10/01/16 Eren Cr MD Referring Physician Medical Oncology 11/25/18 Yohana Bowen MD Radiation Oncologist Radiation Oncology 11/25/18 documented as of this encounter
--- OUTSIDE RECORDS SUMMARY | 2024-06-25 22:36 | XMS_ITS | Encounter Summary ---
Author Organization [facility] Healthcare Address [address] [place] [address] Care Team Providers Care Run Lead Name Role Phone Julio César Briseno MD Primary Care Provider [phone] Eren Cr MD Unavailable [phone] Yohana Bowen MD Unavailable Encounter Details Date Type Department Care Team (Late st Contact Info) Description 12/24/2018 Orders Only RAD ONC TREATMENTS Miscellaneous, Not In File Social History Tobacco Use Types Packs/Day Years Used Date Smoking Tobacco: Never Smokeless Tobacco: Never Alcohol Use Standard Drinks/Week Comments Yes 1 (1 standard drink = 0.6 oz pur e alcohol) Comments No Sex and Gender Information Value Date Recorded Sex Assigned at Not on file 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 Gender Identity Not on file Sexual Orientation Straight 02/19/2021 9: 29 AM CDT Occupation Industry Job Start Date Job End Date retired Not on file Not on file Not on file documented as of this encounter Plan of Treatment Not on file documented as of this encounter Procedures Procedure Name Priority Date/Time Associated Diagnosis Comments RAD ONC ARIA SESSION SUMMARY 12/24/2018 9:51 AM CDT documented in this encounter Results * RAD ONC ARIA SESSION SUMMARY (12/24/2018 9:51 AM CDT) Course Name Lutathera ARIA Course Plan Date 12/10/2018 11:08 AM ARIA Elapsed Days 0 ARIA Course Intent Unknown ARIA Treatment Start Date 12/24/2018 ARIA Treatment Site Lutathera ARIA Dose Given To Date (cGy) 200 ARIA Session Dosage Given (cGy) 200 ARIA Plan ID Lutathera ARIA Fractions Treated 1 ARIA Prescribed Dose Per Fraction (cGy) 200 ARIA Prescribed Total Dose (cGy) 800 ARIA 12/24/2018 9:51 AM CDT us Not In File Miscellaneous RADIATION ONCOLOGY ORD ERABLES Final Result ARIA documented in this encounter Visit Diagnoses Not on filedocumented in this encounter Care Teams Run Lead Relationship Specialty Start Date End Date Julio César Briseno MD PCP - General 10/01/16 Eren Cr MD Referring Physician Medical Oncology 11/25/18 Yohana Bowen MD Radiation Oncologist Radiation Oncology 11/25/18 documented as of this encounter
--- OUTSIDE RECORDS SUMMARY | 2024-06-25 22:36 | XMS_ITS | Encounter Summary ---
Author Organization [facility] Address [address] [place] [address] Phone Care Team Providers Care Mathematics Instructor Name Role Phone Julio César Briseno MD Primary Care Provider Eren Cr MD Unavailable [phone] Yohana Bowen MD Unavailable Encounter Details Date Type Department Care Team (Late st Contact Info) Description 03/05/2019 Telephone [facility] Oncology [address] 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 She normally comes to the MD visit, but was unable this past Saturday. She called wondering about the Xgeva. I explained that given the bone metastasis of the left arm, and in setting of hypercalcemia, we were considering adding Xgeva injections when she returns in 1 month. This is not a definite we can always put off to another time if needed. S he was thinking that the patient was given a prescription and is to start this at home. I reinforced that this is an injection that she would be receiving in the treatment center, and then this may help lower the serum calcium levels. We can talk about this further when she returns her visit 1 month. Shanell was thankful for the discussion, and I asked that she call with any further questions or concerns. documented in this encounter Plan of Treatment Not on file documented as of this encounter Visit Diagnoses Not on filedocumented in this encounter Care Teams Mathematics Instructor Relationship Specialty Start Date End Date Julio César Briseno MD PCP - General 10/01/16 Eren Cr MD Referring Physician Medical Oncology 11/25/18 Yohana Bowen MD Radiation Oncologist Radiation Oncology 11/25/18 documented as of this encounter
--- OUTSIDE RECORDS SUMMARY | 2024-06-25 22:36 | XMS_ITS | Encounter Summary ---
Author Organization [facility] Healthcare Address [address] [place] [address] Care Team Providers Care National Stormwater Leader Name Role Phone Julio César Briseno MD Primary Care Provider [phone] Eren Cr MD Unavailable Yohana Bowen MD Unavailable Encounter Details Date Type Department Care Team (Late st Contact Info) Description 02/18/2019 7:00 AM CDT Office Visit [facility] Radiation Oncology [address] [place] [address] Advanced Medicine [facility] [place] [address] Yohana Bowen MD [address] [place] [address] [address] [place] [address] Meagan Amaya MD [address] [facility] [address] [place] [address] Neuroendocrine carcinoma (CMS/HCC) (Primary Dx) Social History Tobacco Use Types Packs/Day Years Used Date Smoking Tobacco: Never Smokeless Tobacco: Never Alcohol Use Standard Drinks/Week Comments Yes 1 (1 standard drink = 0.6 oz pur e alcohol) Comments No Sex and Gender Information Value Date Recorded Sex Assigned at Not on file 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 Gender Identity Not on file Sexual Orientation Straight 02/19/2021 9: 29 AM CDT Occupation Industry Job Start Date Job End Date retired Not on file Not on file Not on file documented as of this encounter Last Filed Vital Signs Vital Sign Reading Time Taken Comments Blood Pressure 144/63 02/18/2019 12:58 PM CDT Pulse 74 02/18/2019 12:58 PM CDT Temperature - - Respiratory Rate 16 02/18/2019 12:4 3 PM CDT Oxygen Saturation 98% 02/18/2019 12: 58 PM CDT Inhaled Oxygen Concentration - - Weight 81.6 kg (179 lb 14.4 oz) 02/18/2019 7:23 AM CDT Height - - Body Mass Index 31.87 11/25/2018 9:15 AM CDT documented in this encounter Progress Notes * Bryce Magana RN - 02/18/2019 7:00 AM CDT Pt admitted to Brachytherapy for Jody-177 # 2. Identified by name, , and photo. Explained procedure to pt and pt verbalized understanding. Pt has no complaints. VSS. Right arm double lumen PICC lineflushes without resistance and positive blood return present. Labs drawn for study. Amino Acids started at 500ml/hr at 0733. Therapist administered Jody-[address] Amaya present. * Huy Landis RN - 02/18/2019 7:00 AM CDT Pt completed Jody-177 administration w/o incident. Dose line removed with proper PPE and port capped with therapist assistance. Amino Acids continued to infuse at titrated rate. Pt completed Amino Acids administration w/o incident @1204. VSS. PICC line removed by Dr. Amaya. Discharge instructions explained to pt and packet provided. Pt verbalized understanding. Vital signs remained stable post-PICCline removal. Pt ambulatory from department. 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 PREOPERATIVE DIAGNOSIS: Metastatic Neuroendocrine Tumor ?? POSTOPERATIVE DIAGNOSIS: Metastatic Neuroendocrine Tumor ?? NAME OF PROCEDURE: Lutetium-177 DOTATATE administration, Fraction 2 of 4 ?? INDICATION FOR PROCEDURE: Progression of neuroendocrine tumor on somatostatin analogue ?? Patient took ondansetron this AM. ?? Patient received amino acid infusion through right??PICC line. I was called to supervise the administration of the Jody-177. I verified the dose. Dose was delivered until three stable readings. Treatment was tolerated well. I personally removed the PICC line??per standard hospital procedure. Patient was observed for 30 minutes after PICC removal with stable vital signs at 15 and 30 minutes. 198.0 mCi of a prescribed dose of 201.8 mCi was delivered. ?? PROCEDURE FINDINGS: N/A ?? SPECIMENS REMOVED: N/A ?? ESTIMATED BLOOD LOSS: None ?? DISPOSITION: Patient will receive post-treatment octreotide/SSA injection within 4-24 hours of completing this therapy. 1 month injection will be at the discretion of medical oncology and patient. Patient will return for treatment #3 of 4 in 2 months. ?? Patient is cleared and safe to be [...] can be properly communicated to treatment teams. documented in this encounter Plan of Treatment [...] mL 1,000 mL, intravenous, Continuous, Starting on Sat02/18/19 at 0715, x2 bags initiate at least 30 minutes prior to giving lutetium Jody 177 dotatate (LUTATHERA) infusion. Continue during and 3 hours after LUTATHERA infusion.Indications:Neuro endocrine carcinoma (HCC) Rate/Dose Change 02/18/2019 11:32 AM CDT 500 mL/hr New Bag 02/18/2019 9:37 AM CDT 1,000 mL 400 mL/hr Rate/Dose Change 02/18/2019 9:24 AM CDT 400 mL/ hr sodium chloride 0.9% infusion 50 mL/hr, intravenous, Continuous, Starting on Sat02/18/19 at 0800Indications:Neuroendocrine carcinoma (HCC) New Bag 02/18/2019 8:13 AM CDT 50 mL/hr 50 mL/hr documented in this encounter Care Teams National Stormwater Leader Relationship Specialty Start Date End Date Julio César Briseno MD PCP - General 10/01/16 Eren Cr MD Referring Physician Medical Oncology 11/25/18 Yohana Bowen MD Radiation Oncologist Radiation Oncology 11/25/18 documented as of this encounter
--- OUTSIDE RECORDS SUMMARY | 2024-06-25 22:36 | XMS_ITS | Encounter Summary ---
Author Organization [facility] Healthcare Address [address] [place] [address] Care Team Providers Care Brazer Resistance Name Role Phone Julio César Briseno MD Primary Care Provider [phone] Eren Cr MD Unavailable [phone] Yohana Bowen MD Unavailable Encounter Details Date Type Department Care Team (Late st Contact Info) Description 03/30/2019 Orders Only [facility] Advanced Medicine Radiation Oncology [address] [facility] [place] [address] Hien Soto RN Neuroendocrine carcinoma (CMS/HCC) (Primary Dx) Social History Tobacco Use Types Packs/Day Years Used Date Smoking Tobacco: Never Smokeless Tobacco: Never Alcohol Use Standard Drinks/Week Comments Yes 1 (1 standard drink = 0.6 oz pur e alcohol) Comments No Sex and Gender Information Value Date Recorded Sex Assigned at Not on file Legal Sex Female 2:[address] 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
--- OUTSIDE RECORDS SUMMARY | 2024-06-25 22:36 | XMS_ITS | Encounter Summary ---
Author Organization [facility] Facility Care Team Providers Care Svp Programmatic Tv Name Role Phone Julio César Briseno MD Primary Care Provider [phone] Eren Cr MD Unavailable [phone] Yohana Bowen MD Unavailable Encounter Details Date Type Department Care Team (Latest Contact Info) Description 04/12/2019 Travel Social History Tobacco Use Types Packs/Day Years Used Date Smoking Tobacco: Never Smokeless Tobacco: Never Alcohol Use Standard Drinks/Week Comments Yes 1 (1 standard drink = 0.6 oz pur e alcohol) Comments No Sex and Gender Information Value Date Recorded Sex Assigned at Not on file 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
--- OUTSIDE RECORDS SUMMARY | 2024-06-25 22:36 | XMS_ITS | Encounter Summary ---
Author Organization [facility] Address [address] [place] [address] Phone Care Team Providers Care Reinforcing Rod Layer Name Role Phone Julio César Briseno MD Primary Care Provider Eren Cr MD Unavailable [phone] Yohana Bowen MD Unavailable Encounter Details Date Type Department Care Team (Late st Contact Info) Description 03/05/2019 Telephone [facility] Oncology [address] [facility] Advanced Medicine 7th [place] [address] [place] [address] Jeevan Martino, RN [address] [place], [place] [id number] Social History Tobacco Use Types Packs/Day Years Used Date Smoking Tobacco: Never Smokeless Tobacco: Never Alcohol Use Standard Drinks/Week Comments Yes 1 (1 standard drink = 0.6 oz pur e alcohol) Comments No Sex and Gender Information Value Date Recorded Sex Assigned at Not on file 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 Information to EMAIL DEVELOPER Sabrina Willard to call Shanell back. documented in this encounter Plan of Treatment Not on file documented as of this encounter Visit Diagnoses Not on filedocumented in this encounter Care Teams Reinforcing Rod Layer Relationship Specialty Start Date End Date Julio César Briseno MD PCP - General 10/01/16 Eren Cr MD Referring Physician Medical Oncology 11/25/18 Yohana Bowen MD Radiation Oncologist Radiation Oncology 11/25/18 documented as of this encounter
--- OUTSIDE RECORDS SUMMARY | 2024-06-25 22:36 | XMS_ITS | Encounter Summary ---
Author Organization [facility] Healthcare Address [address] [place] [address] Care Team Providers Care Journalism Internship Name Role Phone Julio César Briseno MD Primary Care Provider [phone] Eren Cr MD Unavailable [phone] Yohana Bowen MD Unavailable Encounter Details Date Type Department Care Team (Late st Contact Info) Description 04/09/[address] 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 Gender Identity Not on file Sexual Orientation Straight 02/19/2021 9: 29 AM CDT Occupation Industry Job Start Date Job End Date retired Not on file Not on file Not on file documented as of this encounter Miscellaneous Notes * Telephone Encounter - Shruti Renee RN - 04/09/2019 5:21 PM CDT Preprocedure Phone Call Procedure Time Verified: Yes Arrival Time Verified: Yes Procedure Location Verified: Yes Medical History Reviewed: Yes NPO Status Reinforced: No Ride and Caregiver Arranged: Yes Patient Knows to Bring Current Medications: No Patient Knows to Bring CPAP: No Is Patient on Home Ventilator?: No Is Patient on Blood Thinners?: No documented in this encounter Plan of Treatment Not on file documented as of this encounter Visit Diagnoses Not on filedocumented in this encounter Historical Medications * This list may reflect changes made after this encounter. olmesartan-hydroc hlorothiazide (BENICAR HCT) 40-25 mg per tablet Take 1 tablet by mouth daily 04/12/2019 added in this encounter Care Teams Journalism Internship Relationship Specialty Start Date End Date Julio César Briseno MD PCP - General 10/01/16 Eren Cr MD Referring Physician Medical Oncology 11/25/18 Yohana Bowen MD Radiation Oncologist Radiation Oncology 11/25/18 documented as of this encounter
--- OUTSIDE RECORDS SUMMARY | 2024-06-25 22:36 | XMS_ITS | Encounter Summary ---
Author Organization [facility] Address [address] [place] [address] Phone Care Team Providers Care Tape Controlled Machine Stitcher Name Role Phone Julio César Briseno MD Primary Care Provider [phone] Eren Cr MD Unavailable [phone] Yohana Bowen MD Unavailable Reason for Visit * Reason Comments Injections * Episode Based Medications (Routine) - Authorized Specialty Diagnoses / Procedures Referred By Contellen t Referred To Contact Oncology Diagnoses Neuroendocrine carcinoma (HCC) 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) Procedures MS OCTREOTIDE INJECTION, DEPOT Octreotide 28 Day Cycles - Carcinoid Eren Cr MD [address] [address] [place] [address] Phone: tel: fax: [address] [address] Phone: tel: fax: Referral ID Status Reason Start Date Expiration Date V isits Requested Visits Authorized [id number] Authorized 11/28/2017 02/05/2025 1 150 Encounter Details Date Type Department Care Team (Late st Contact Info) Description 02/18/2019 4:00 PM CDT Infusion [facility] Oncology [address] [place] [address] for Advanced Medicine 7th [place] [address] Neuroendocrine carcinoma (CMS/HCC) (Primary Dx); Malignant neoplasm metastatic to liver (CMS/HCC) Social History Tobacco Use Types Packs/Day Years Used Date Smoking Tobacco: Never Smokeless Tobacco: Never Alcohol Use Standard Drinks/Week Comments Yes 1 (1 standard drink = 0.6 oz pur e alcohol) Comments No Sex and Gender Information Value Date Recorded Sex Assigned at Not on file 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 Injection tolerated well. Discharged ambulatory. documented in this encounter Plan [...] 30 mg 30 mg, intramuscular, Once, On Sat02/18/19 at 1345, For 1 dose, Refrigerate. For IM administration only. 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),Neuroendocrine carcinoma (HCC) Given 02/18/2019 1:23 PM CDT 30 mg Right Dorsogluteal/Butt ock documented in this encounter Orders Medications Ordered That Brett ht Not Have Been Administered Count Last Ordered Date First Ordered Date octreotide LAR (SandoSTATIN LAR) extended release intramuscular injection 30 mg 1 02/18/2019 Appointment Requests Count Last Ordered Date Fi rst Ordered Date ONCBCN INJECTION APPOINTMENT REQUEST 1 02/05 documented in this encounter Care Teams Tape Controlled Machine Stitcher Relationship Specialty Start Date End Date Julio César Briseno MD PCP - General 10/01/16 Eren Cr MD Referring Physician Medical Oncology 11/25/18 Yohana Bowen MD Radiation Oncologist Radiation Oncology 11/25/18 documented as of this encounter
--- OUTSIDE RECORDS SUMMARY | 2024-06-25 22:36 | XMS_ITS | Encounter Summary ---
Author Organization [facility] Address [address] [place] [address] Phone Care Team Providers Care Log Tumbler Name Role Phone Julio César Briseno MD Primary Care Provider Eren Cr MD Unavailable [phone] Yohana Bowen MD Unavailable Encounter Details Date Type Department Care Team (Late st Contact Info) Description 03/30/2019 9:00 AM CDT Office Visit 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 Gender Identity Not on file Sexual Orientation Straight 02/19/2021 9: 29 AM CDT Occupation Industry Job Start Date Job End Date retired Not on file Not on file Not on file documented as of this encounter Last Filed Vital Signs Vital Sign Reading Time Taken Comments Blood Pressure 114/69 03/30/2019 8:24 AM CDT Pulse 81 03/30/2019 8:24 AM CDT Temperature 37 ??C (98.6 ??F) 03/30/2019 8:24 AM CDT Respiratory Rate 18 03/30/2019 8:24 AM CDT Oxygen Saturation 94% 03/30/2019 8:24 AM CDT Inhaled Oxygen Concentration - - Weight 79.9 kg (176 lb 3.2 oz) 03/30/2019 8:24 A M CDT Height - - Body Mass Index 31.21 11/25/2018 9:15 AM CDT documented in this encounter Progress Notes * Tio Llanos MD - 03/30/2019 9:00 AM CDT MEDICAL ONCOLOGY OUTPATIENT ROV NOTE Oncology History TREATMENT HISTORY: 1. CT abdomen [...] time, she also [facility] by Dr. Greyson Reeves. Biopsy revealed [...] 12/24/18. 11. PRRT cycle 2 on 02/18/19. Interval History: La Chung is here today for follow up visit for diagnosis of metastatic ileal NET. She has currently undergone 2 cycles of PRRT so far. Last treatment was 02/18/19. She tolerates this well. On last visit her hypercalcemia and possibility of Xgeva was discussed, and in the interim she has seen a dentist and has no concerning dental findings. Her only symptom is mild flatulence, for which she takes short-acting octreotide . Denies diarrhea, weakness, muscle cramps, fevers, chills, nausea, vomiting or any new complaints. Allergies: Allergies Allergen Reactions ??? Ezetimibe-Simvastatin Muscle pain and Unknown Muscle weakness ??? Ramipril Cough Medications: Current Outpatient Medications: ??? AMOXICILLIN 500 mg capsule, TAKE 4 CAPSULES 1 HOUR BEFORE APPOINTMENT, Disp: , Rfl: 0 ??? ascorbic acid, vitamin C, 500 mg capsule, Take 1 tablet by mouth., Disp: , Rfl: ??? cephalexin (KEFLEX) 500 mg capsule, cephalexin 500 mg capsule, Disp: , Rfl: ??? cholecalciferol (VITAMIN D-3) 5,000 unit tablet, Take 15,000 Units by mouth daily., Disp: , Rfl: ??? cholestyramine (QUESTRAN) 4 gram packet, cholestyramine (with sugar) 4 gram powder for susp in a packet, Disp: , Rfl: ??? clotrimazole-betamethasone (LOTRISONE) cream, clotrimazole-betamethasone 1 %-0.05 % topical cream APPLY EXTERNALLY TO ABDOMEN TWICE DAILY NEEDED, Disp: , Rfl: ??? coenzyme [id number] E (CO Q-10, WITH VIT E,) 100-5 [...] 10 mg tablet, Disp: , Rfl: ??? MYRBETRIQ 50 mg tablet extended release 24 hr, Take 50 mg by mouth daily, Disp: , Rfl: 1 ??? octreotide (SandoSTATIN) 100 mcg/mL (1 mL) syringe, Inject 1 mL (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) under the skin 3 (three) times a day as needed (flushing, cramping, diarrhea), Disp: 21 Syringe, Rfl: 5 ??? olmesartan-hydrochlorothiazide (BENICAR HCT) 20-12.5 mg per tablet, Take 1 tablet by mouth daily, Disp: , Rfl: ??? simvastatin (ZOCOR) 20 mg tablet, , Disp: , Rfl: ??? trospium (SANCTURA) 20 mg tablet, Take 20 mg by mouth., Disp: , Rfl: ??? valsartan-hydroCHLOROthiazide (DIOVAN-HCT) 80-12.5 mg per tablet, valsartan 80 mg-hydrochlorothiazide 12.5 mg tablet, Disp: , Rfl: ??? wheat dextrin (BENEFIBER CLEAR SF, DEXTRIN, ORAL), , Disp: , Rfl: No current facility-administered medications for this visit. ROS: As mentioned in the interval history. All other systems negative. Objective: Vitals BP 114/69 Pulse 81 Temp 37 ??C (98.6 ??F) Resp 18 Wt 79.9 kg (176 lb 3.2 oz) SpO2 94% BMI 31.21 kg/m?? Physical Exam: ECOG PS: 0 General: patient is a pleasant female in no acute distress. Head: Pupils bilaterally equally reactive to light, Extraocular movements are intact, oropharynx clear. Neck: supple, no JVD, lymphadenopathy or thyromegaly. Chest: clear to auscultation bilaterally. No wheezes or rales. Heart: S1S2, RRR, no murmurs, rubs or gallops Abdomen: soft, non tender, bowel sounds present. No organomegaly appreciated. Extremities: no cyanosis, clubbing or edema. Neurological: grossly intact. Labs: All laboratories personally reviewed, selected values included below. Recent Results (from the past 24 hour(s)) CBC with auto differential Collection Time: 03/30/19 7:42 AM Result Value Ref Range WBC 3.7 (L) 3.8 - 9.8 K/cumm Hgb 14.3 12.1 - 15.1 g/dL Hct 40.5 36.1 - 44.3 % Plt 119 (L) 140 - 440 K/cumm MPV 8.0 6.8 - 10.4 fL RBC 4.58 3.90 - 5.00 M/cumm MCV 88.6 80.0 - 97.6 fL MCH 31.4 26.7 - 33.7 pg MCHC 35.4 32.7 - 35.5 g/dL RDW CV 13.9 11.8 - 14.6 % NRBC abs 0.01 0.00 - 0.01 K/cumm Differential, auto Collection Time: 03/30/19 7:42 AM Result Value Ref Range Neutrophil abs 2.5 1.8 - 6.6 K/cumm Lymphocyte abs 0.4 (L) 1.2 - 3.3 K/cumm Monocyte abs 0.7 0.2 - 1.2 K/cumm Eosinophil abs 0.1 0.0 - 0.5 K/cumm Basophil abs 0.1 0.0 - 0.2 K/cumm Neutrophil pct 66.8 % Lymphocyte pct 10.6 % Monocyte pct 19.1 % Eosinophil pct 2.1 % Basophil pct 1.4 % Phosphorus Collection Time: 03/30/19 7:44 AM Result Value Ref Range Phosphorus, pl 3.0 2.3 - 4.5 mg/dL Comprehensive metabolic panel Collection Time: 03/30/19 7:44 AM Result Value Ref Range Sodium 141 135 - 145 mmol/L Potassium, pl 4.1 3.3 - 4.9 mmol/L Chloride 104 97 - 110 mmol/L CO2 31 22 - 32 mmol/L Anion gap 6 2 - 15 mmol/L BUN 11 8 - 25 mg/dL Creatinine 0.93 0.60 - 1.10 mg/dL Glucose 120 70 - 199 mg/dL Calcium 11.1 (H) 8.5 - 10.3 mg/dL Bilirubin, total 1.0 0.1 - 1.2 mg/dL Protein, pl 6.9 6.5 - 8.5 g/dL Albumin 4.4 3.5 - 5.0 g/dL Alk phos 87 40 - 130 Units/L ALT 18 7 - 45 Units/L AST 30 10 - 45 Units/L Immune deficiency profile Collection Time: 03/30/19 7:44 AM Result Value Ref Range CD4 pct 44 31 - 64 % CD4 Absolute 233 (L) 365 - 1,294 cells/mcL CD8 pct 21 12 - 40 % CD8 Absolute 108 (L) 187 - 781 cells/mcL CD4/CD8 ratio 2.1 0.9 - 4.4 Tumor Marker History Some values may be hidden. Unless noted otherwise, only the newest values recorded on each date aredisplayed. Tumor Markers Latest Ref Range 10/13/18 11/24/18 12/29/18 03/02/19 Chromogranin A <93 ng/mL 151 (A) 182 (A) 203 (A) 232 (A) (A) Abnormal value Comments are available for some flowsheets but are not being displayed. Imaging: CT c/a/p on 03/23/19: IMPRESSION: 1. No change when compared to [...] the descending colon sigmoid colon and rectum. Procedures: None. 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 ??She comes in for continued treatment and follow-up. ?? 1.?Metastatic neuroendocrine tumor of the ilium: S/p 2 PRRT, and CT scans currently show stable disease. She will receive cycle 3 PRRT in approx 2 weeks, with octreotide to follow 4-24hrs after PRRT dose. She will RTC in 4 weeks. ?? 2. 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 We also reviewed the data for prevention of skeletal related events. ?? 3. Diarrhea: Having rare episodes of stool incontinence. She takes lomotil as well as prn short acting octreotide. PT prescription for pelvic floor rehab provided on last visit. ?? She will RTC in 4 weeks for next dose of Xgeva. Active Treatment & Therapy Plans for La Chung Oncology Chemotherapy Treatment: Octreotide 28 Day Cycles - Carcinoid Current day: Day 1, Cycle 16 (Planned for 04/15/2019) Following planned day: Day 1, Cycle 17 (Planned for 06/10/2019) Oncology Supportive Care: DENOSUMAB (XGEVA) INJECTION Current treatment: Treatment 2 (Planned for 04/27/2019) Following planned treatment: Treatment 3 (Planned for 05/25/2019) Tio Llanos MD Clothes Separator completed by using M*Modal Fluency Direct speaking software, therefore, transcriptionvariances may occur. Cosigned by Eren Cr Jr., MD at 04/02/2019 4:42 PM CDT Associated attestation - Eren Cr MD - 04/02/2019 4:42 PM CDT I have seen and examined the patient on 03/30/2019 I agree with the findings and plan of care as documented in the fellow's note. Eren Cr Jr., MD 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) Neuroendocrine carcinoma (HCC) Other malignant neoplasm of unspecified site documented in this encounter Historical Medications * This list may reflect changes made after this encounter. AMOXICILLIN 500 mg capsule TAKE 4 CAPSULES 1 HOUR BEFORE APPOINTMENT 0 03/27/2019 9 added in this encounter Orders Appointment Requests Count Last Ordered Date Fi rst Ordered Date ONCBCN CLINIC APPOINTMENT REQUEST 1 019 documented in this encounter Care Teams Log Tumbler Relationship Specialty Start Date End Date Julio César Briseno MD PCP - General 10/01/16 Eren Cr MD Referring Physician Medical Oncology 11/25/18 Yohana Bowen MD Radiation Oncologist Radiation Oncology 11/25/18 documented as of this encounter
--- OUTSIDE RECORDS SUMMARY | 2024-06-25 22:36 | XMS_ITS | Encounter Summary ---
Author Organization [facility] Address [address] [place] [address] Phone Care Team Providers Care V Belt Skiver Name Role Phone Julio César Briseno MD Primary Care Provider [phone] Eren Cr MD Unavailable [phone] Yohana Bowen MD Unavailable Reason for Visit * Episode Based Medications (Routine) - Authorized Specialty Diagnoses / Procedures Referred By Evelyne t Referred To Contact Oncology Diagnoses Neuroendocrine carcinoma (HCC) Malignant neoplasm metastatic to liver (HCC) Procedures [place] OCTREOTIDE INJECTION, DEPOT Octreotide 28 Day Cycles - Carcinoid Eren Cr MD [address] [facility] [address] [place] [address] Phone: tel: fax: [facility] [address] [address] Phone: tel: fax: Referral ID Status Reason Start Date Expiration Date V isits Requested Visits Authorized [id number] Authorized 11/28/2017 02/05/2025 1 150 Encounter Details Date Type Department Care Team (Late st Contact Info) Description 03/30/2019 10:00 AM CDT Infusion [facility] Oncology [facility] [address] [place] [address] 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); Neuroendocrine carcinoma (CMS/HCC); Bone metastasis (CMS/HCC); Neuro-endocrine carcinoma (CMS/HCC) Social History Tobacco Use Types Packs/Day Years Used Date Smoking Tobacco: Never Smokeless Tobacco: Never Alcohol Use Standard Drinks/Week Comments Yes 1 (1 standard drink = 0.6 oz pur e alcohol) Comments No Sex and Gender Information Value Date Recorded Sex Assigned at Not on file 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 She has no questions or concerns at this time. She knows when shereturns for follow up treatments. documented in this encounter Plan of Treatment [...] 120 mg 120 mg, subcutaneous, Once, On Sat03/30/19 at 1030, For 1 dose, Calcium level should be greater than 8 mg/dl Administer injection in upper arm, abdomen or upper thigh Refrigerate. Allow to stand 15 to 30 mins prior to useIndications:Bone metastasis,Neuro-endocrine carcinoma (HCC) Given 03/30/2019 10:07 AM CDT 120 mg Right Upper Arm documented in this encounter Orders Medications Ordered That Brett ht Not Have Been Administered Count Last Ordered Date First Ordered Date denosumab (XGEVA) subcutaneo us syringe 120 mg 1 03/30/2019 Nursing Count Last Ordered Date First Orde red Date ONCBCN NURSING COMMUNICATION [id number] 1 0 03/30/2019 Appointment Requests Count Last Ordered Date Fi rst Ordered Date ONCBCN INJECTION APPOINTMENT REQUEST 1 03/09 documented in this encounter Care Teams V Belt Skiver Relationship Specialty Start Date End Date Julio César Briseno MD PCP - General 10/01/16 Eren Cr MD Referring Physician Medical Oncology 11/25/18 Yohana Bowen MD Radiation Oncologist Radiation Oncology 11/25/18 documented as of this encounter
--- OUTSIDE RECORDS SUMMARY | 2024-06-25 22:36 | XMS_ITS | Encounter Summary ---
Author Organization [facility] Address [address] [place] [address] Care Team Providers Care Ropeman Name Role Phone Julio César Briseno MD Primary Care Provider [phone] Eren Cr MD Unavailable [phone] Yohana Bowen MD Unavailable Reason for Referral * Diagnostic Imaging (Routine) - Closed Specialty Diagnoses / Procedures Referred By Contac t Referred To Contact Radiology Diagnoses Neuroendocrine carcinoma (HCC) Procedures CT Chest Abdomen Pelvis W Contrast Yohana Bowen MD Phone: tel: fax: [address] [address] Referral ID Status Reason Start Date Expiration Date Visits Re quested Visits Authorized [id number] Closed 02/05/2019 08/16/2020 1 1 Reason for Visit * Diagnostic Imaging (Routine) - Closed Specialty Diagnoses / Procedures Referred By Contellen t Referred To Contact Radiology Diagnoses Neuroendocrine carcinoma (HCC) Procedures CT Chest Abdomen Pelvis W Contrast Yohana Bowen MD Phone: tel: fax: [address] [address] Referral ID Status Reason Start Date Expiration Date Visits Re quested Visits Authorized [id number] Closed 02/05/2019 08/16/2020 1 1 Encounter Details Date Type Department Care Team (Latest Contact Info) Description 03/23/2019 1:03 PM CDT - 03/23/2019 11:59 PM CDT Hospital Encounter [facility] [address] [place] [address] Yohana Bowen MD [address] [facility] [address] [place] [address] Neuroendocrine carcinoma (CMS/HCC) Discharge Disposition: Discharge to home or self care Social History Tobacco Use Types Packs/Day Years Used Date Smoking Tobacco: Never Smokeless Tobacco: Never Alcohol Use Standard Drinks/Week Comments Yes 1 (1 standard drink = 0.6 oz pur e alcohol) Comments No Sex and Gender Information Value Date Recorded Sex Assigned at Not on file 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 9 cholestyramine (QUESTRAN) 4 gram packet cholestyramine (with sugar) 4 gram powder for susp in a packet 9 clotrimazole-be tamethasone (LOTRISONE) cream Apply 1 Application topically daily as needed (rash) 4 coenzyme [id number] E 100-5 mg-unit capsuleIndicati ons:supplement Take 1 tablet by mouth wafer machine operator before breakfast 4 diphenoxylate-a tropine (LOMOTIL) 2.5-0.025 mg per tabletIndicatio ns:diarrhea Take 1 tablet by mouth 4 (four) times a day as needed for diarrhea 30 tablet 3 03/02/[address] (CYMBALTA) 30 mg capsule [...] CONTRAST Schedule Routine, Read Routine (OP Routine) 03/23/2019 2:26 PM CDT Neuroendocrine carcinoma (CMS/HCC) documented in [...] by: Fly Benavidez M.D. Yohana Bowen MD IM CT PROCEDURES Final Result documented in this encounter Visit Diagnoses Diagnosis Neuroendocrine carcinoma (HCC) Other malignant neoplasm of unspecified site documented in this encounter Administered Medications Inactive Administered Medications - up to 3 most recent administrations Medication Order MAR Action Action Date Dose Rate Site ioversol (OPTIRAY 350) syringe syringe 100 mL 100 mL, intravenous, Once in imaging, contrast, Starting on 03/23/19 at 1426, For 1 dose Given 03/23/2019 2:27 PM CDT 100 mL documented in this encounter Orders Medications Ordered That Brett ht Not Have Been Administered Count Last Ordered Date First Ordered Date ioversol (OPTIRAY 350) syrin ge syringe 100 mL 1 03/23/2019 documented in this encounter Care Teams Ropeman Relationship Specialty Start Date End Date Julio César Briseno MD PCP - General 10/01/16 Eren Cr MD Referring Physician Medical Oncology 11/25/18 Yohana Bowen MD Radiation Oncologist Radiation Oncology 11/25/18 documented as of this encounter
--- OUTSIDE RECORDS SUMMARY | 2024-06-25 22:36 | XMS_ITS | Encounter Summary ---
Author Organization [facility] Address [address] [place] [address] Phone Care Team Providers Care Cardiology Physician Name Role Phone Julio César Briseno MD Primary Care Provider [phone] Eren Cr MD Unavailable [phone] Yohana Bowen MD Unavailable Encounter Details Date Type Department Care Team (Late st Contact Info) Description 01/07/2019 Orders Only [facility] Oncology [address] [facility] 7th [place] [address] [place] [address] Eren Cr MD [address] [facility] [address] [place] [address] Social History Tobacco Use Types Packs/Day Years Used Date Smoking Tobacco: Never Smokeless Tobacco: Never Alcohol Use Standard Drinks/Week Comments Yes 1 (1 standard drink = 0.6 oz pur e alcohol) Comments No Sex and Gender Information Value Date Recorded Sex Assigned at Not on file 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
--- OUTSIDE RECORDS SUMMARY | 2024-06-25 22:36 | XMS_ITS | Encounter Summary ---
Author Organization [facility] Address [address] [place] [address] Phone Care Team Providers Care Head Of It Name Role Phone Julio César Briseno MD Primary Care Provider Eren Cr MD Unavailable [phone] Yohana Bowen MD Unavailable Encounter Details Date Type Department Care Team (Late st Contact Info) Description 01/16/2019 Orders Only [facility] Oncology [address] [facility] 7th [place] [address] [place] [address] Jeevan Martino, IRVING [address] [place], [place] [id number] Social History Tobacco Use Types Packs/Day Years Used Date Smoking Tobacco: Never Smokeless Tobacco: Never Alcohol Use Standard Drinks/Week Comments Yes 1 (1 standard drink = 0.6 oz pur e alcohol) Comments No Sex and Gender Information Value Date Recorded Sex Assigned at Not on file 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
--- OUTSIDE RECORDS SUMMARY | 2024-06-25 22:36 | XMS_ITS | Encounter Summary ---
Author Organization [facility] Address [address] [place] [address] Phone Care Team Providers Care Manager Freelance Name Role Phone Julio César Briseno MD Primary Care Provider Eren Cr MD Unavailable [phone] Yohana Bowen MD Unavailable Encounter Details Date Type Department Care Team (Late st Contact Info) Description 04/11/2019 Telephone [facility] Oncology [address] [place] [address] Bailee Bobby, CECILIA [address] [place] [address] Social History Tobacco Use Types Packs/Day Years Used Date Smoking Tobacco: Never Smokeless Tobacco: Never Alcohol Use Standard Drinks/Week Comments Yes 1 (1 standard drink = 0.6 oz pur e alcohol) Comments No Sex and Gender Information Value Date Recorded Sex Assigned at Not on file 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 She states that her mom has been experiencing severe right-sided abdominal pain for the last 24 hours. She was seen in urgent care today as she thought she had potential viral symptoms. The urgent care did not feel comfortable caring for her and stated that she needs to be seen at a higher level of care. She denies any fever, chills, other sites of pain. Her last bowel movement was yesterday morning. Recommended that the patient be seen in a local emergency room. When the daughter questions that she could be seen in the [facility] we discussed that the [facility] would not be ableto do anything for her pain which would not immediately help her. The daughter was agreeable and stated understanding. They will proceed to the closest emergency room which is [facility]. I asked the daughter call the exchange back with any further questions or concerns. She stated understanding. Primary oncologist team updated via [employer]. Bailee Bobby, MSN, OCN, ANP Nurse Practitioner, Medical Oncology Bread Packer completed by using C[employer] Direct speaking software, therefore, transcriptionvariances may occur. documented in this encounter Plan of Treatment Not on file documented as of this encounter Visit Diagnoses Not on filedocumented in this encounter Care Teams Manager Freelance Relationship Specialty Start Date End Date Julio César Briseno MD PCP - General 10/01/16 Eren Cr MD Referring Physician Medical Oncology 11/25/18 Yohana Bowen MD Radiation Oncologist Radiation Oncology 11/25/18 documented as of this encounter
--- OUTSIDE RECORDS SUMMARY | 2024-06-25 22:36 | XMS_ITS | Encounter Summary ---
Author Organization [facility] Address [address] [place] [address] Phone Care Team Providers Care Narcotics Detective Name Role Phone Julio César Briseno MD Primary Care Provider Eren Cr MD Unavailable [phone] Yohana Bowen MD Unavailable Encounter Details Date Type Department Care Team (Late st Contact Info) Description 03/16/2019 Orders Only [facility] Oncology [address] [place] [address] [place] Social History Tobacco Use Types Packs/Day Years Used Date Smoking Tobacco: Never Smokeless Tobacco: Never Alcohol Use Standard Drinks/Week Comments Yes 1 (1 standard drink = 0.6 oz pur e alcohol) Comments No Sex and Gender Information Value Date Recorded Sex Assigned at Not on file 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
--- OUTSIDE RECORDS SUMMARY | 2024-06-25 22:36 | XMS_ITS | Encounter Summary ---
Author Organization [facility] Address [address] [place] [address] Phone Care Team Providers Care Agricultural Equipment Operator Name Role Phone Julio César Briseno MD Primary Care Provider Eren Cr MD Unavailable [phone] Yohana Bowen MD Unavailable Encounter Details Date Type Department Care Team (Late st Contact Info) Description 02/16/2019 12:15 PM CDT Lab [facility] Oncology [facility] 7th [place] [address] [place] [id number] Neuroendocrine carcinoma (CMS/HCC) Social History Tobacco Use Types Packs/Day Years Used Date Smoking Tobacco: Never Smokeless Tobacco: Never Alcohol Use Standard Drinks/Week Comments Yes 1 (1 standard drink = 0.6 oz pur e alcohol) Comments No Sex and Gender Information Value Date Recorded Sex Assigned at Not on file 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 Gender Identity Not on file Sexual Orientation Straight 02/19/2021 9: 29 AM CDT Occupation Industry Job Start Date Job End Date retired Not on file Not on file Not on file documented as of this encounter Plan of Treatment Not on file documented as of this encounter Procedures Procedure Name Priority Date/Time Associated Diagnosis Comments DIFFERENTIAL AUTO Routine 02/16/2019 12: 22 PM CDT Neuroendocrine carcinoma (CMS/HCC) CBC WITH AUTO DIFFERENTIAL Routine 02/16/2019 12:22 PM CDT Neuroendocrine carcinoma (CMS/HCC) IMMUNE DEFICIENCY PROFILE Routine 02/16/2019 12:21 PM CDT Neuroendocrine carcinoma (CMS/HCC) COMPREHENSIVE METABOLIC PANEL Routine 02/16/2019 12:21 PM CDT Neuroendocrine carcinoma (CMS/HCC) documented in this encounter Results * (ABNORMAL) Differential, auto (02/16/2019 12:22 PM CDT) Neutrophil abs 3.1 1.8 - 6.6 K/cumm [facility] Comment:Testing performed by : [facility], [address] [place] [phone] Lymphocyte abs 0.6(L) 1.2 - 3.3 K/cumm [facility] Comment:Testing performed by : [facility], [address] [place] [phone] Monocyte abs 0.5 0.2 - 1.2 K/cumm [facility] Comment:Testing performed by : [facility], [address] [place] [phone] Eosinophil abs 0.1 0.0 - 0.5 K/cumm [facility] Comment:Testing performed by : [facility], [address] [place] [phone] Basophil abs 0.0 0.0 - 0.2 K/cumm [facility] Comment:Testing performed by : [facility], [address] [place] [phone] Neutrophil pct 71.6 % [facility] Comment: Interpretive Data Percent cell count reference ranges are not reported, since discordance with absolute values may lead to misinterpretation of CBC data. Current Interpretive Data was last revised on 2017. Testing performed by: [facility], [address] [place] [phone] Lymphocyte pct 14.5 % [facility] Comment: Interpretive Data Percent cell count reference ranges are not reported, since discordance with absolute values may lead to misinterpretation of CBC data. Current Interpretive Data was last revised on 2017. Testing performed by: [facility], [address] [place] [phone] Monocyte pct 11.7 % [facility] Comment:Testing performed by : [facility], [address] [place] [phone] Eosinophil pct 1.3 % [facility] Comment:Testing performed by : [facility], [address] [place] [phone] Basophil pct 0.9 % [facility] Comment:Testing performed by : [facility], [address] [place] [phone] Blood specimen (specimen) 02/16/2019 12:22 PM CDT 02/16/2019 12:27 PM CDT us Yohana Bowen MD LAB BLOOD ORDERABLES Final Resul t [facility] Department [place] [address] * (ABNORMAL) CBC with auto differential (02/16/2019 12:22 PM CDT) WBC 4.3 3.8 - 9.8 K/cumm [facility] Comment:Testing performed by : [facility], [address] [place] [phone] Hgb 14.1 12.1 - 15.1 g/dL [facility] Comment:Testing performed by : [facility], [address] [place] [phone] Hct 40.6 36.1 - 44.3 % [facility] Comment:Testing performed by : [address] [phone] Plt 139(L) 140 - 440 K/cumm [facility] Comment:Testing performed by : [address] [phone] MPV 8.1 6.8 - 10.4 fL [facility] Comment:Testing performed by : [facility], [address] [place] [phone] RBC 4.68 3.90 - 5.00 M/cumm [facility] Comment:Testing performed by : [facility], [address] [place] [phone] MCV 86.8 80.0 - 97.6 fL [facility] Comment:Testing performed by : [facility], [address] [place] [phone] MCH 30.1 26.7 - 33.7 pg [facility] Comment:Testing performed by : [facility], [address] [place] [phone] MCHC 34.7 32.7 - 35.5 g/dL [facility] Comment:Testing performed by : [facility], [address] [place] [phone] RDW CV 13.9 11.8 - 14.6 % [facility] Comment:Testing performed by : [facility], [address] [place] [phone] NRBC abs 0.00 0.00 - 0.01 K/cumm [facility] Comment:Testing performed by : [facility], [address] [place] [phone] Blood specimen (specimen) 02/16/2019 12:22 PM CDT 02/16/2019 12:27 PM CDT us Yohana Bowen MD LAB BLOOD ORDERABLES Final Resul t [facility] Department [place] [address] * (ABNORMAL) Comprehensive metabolic panel (02/16/2019 12:21 PM CDT) Sodium 140 135 - 145 mmol/L [facility] Potassium, pl 3.9 3.3 - 4.9 mmol/L [facility] Comment:Hemolyzed; (++); pot assium value may be falsely elevated by as much as 0.3 - 0.5 mmol/L. Suggest redraw and reanalysis. Chloride 102 97 - 110 mmol/L [facility] CO2 28 22 - 32 mmol/L [facility] Anion gap 10 2 - 15 mmol/L [facility] BUN 16 8 - 25 mg/dL [facility] Creatinine 0.81 0.60 - 1.10 mg/dL [facility] Glucose 119 70 - 199 mg/dL [facility] [...] 2017. Calcium 10.9(H) 8.5 - 10.3 mg/dL [facility] Bilirubin, total 0.5 0.1 - 1.2 mg/dL [facility] Protein, pl 6.8 6.5 - 8.5 g/dL [facility] Albumin 4.2 3.5 - 5.0 g/dL [facility] Alk phos 80 40 - 130 Units/L [facility] ALT 19 7 - 45 Units/L [facility] AST 29 10 - 45 Units/L [facility] Comment:Hemolyzed; result ma y be falsely elevated. Blood specimen (specimen) 02/16/2019 12:21 PM CDT 02/16/2019 1:02 PM CDT us Yohana Bowen MD LAB BLOOD ORDERABLES Final Resul t [facility] Department [place] [address] * (ABNORMAL) Immune deficiency profile (02/16/2019 12:21 PM CDT) CD4 pct 51 31 - 64 % [facility] CD4 Absolute 322(L) 365 - 1,294 cells/mcL [facility] CD8 pct 28 12 - 40 % [facility] CD8 Absolute 180(L) 187 - 781 cells/mcL [facility] CD4/CD8 ratio 1.8 0.9 - 4.4 [facility] Blood specimen (specimen) 02/16/2019 12:21 PM CDT 02/16/2019 12:49 PM CDT us Yohana Bowen MD LAB BLOOD ORDERABLES Final Resul t [facility] Department [place] [address] documented in this encounter Visit Diagnoses Diagnosis Neuroendocrine carcinoma (HCC) Other malignant neoplasm of unspecified site documented in this encounter Care Teams Agricultural Equipment Operator Relationship Specialty Start Date End Date Julio César Briseno MD PCP - General 10/01/16 Eren Cr MD Referring Physician Medical Oncology 11/25/18 Yohana Bowen MD Radiation Oncologist Radiation Oncology 11/25/18 documented as of this encounter
--- OUTSIDE RECORDS SUMMARY | 2024-06-25 22:36 | XMS_ITS | Encounter Summary ---
Author Organization [facility] Address [address] [place] [address] Care Team Providers Care Welding Lead Burner Name Role Phone Julio César Briseno MD Primary Care Provider [phone] Eren Cr MD Unavailable [phone] Yohana Bowen MD Unavailable Encounter Details Date Type Department Care Team (Late st Contact Info) Description 02/18/2019 Orders Only RAD ONC TREATMENTS Miscellaneous, Not In File Social History Tobacco Use Types Packs/Day Years Used Date Smoking Tobacco: Never Smokeless Tobacco: Never Alcohol Use Standard Drinks/Week Comments Yes 1 (1 standard drink = 0.6 oz pur e alcohol) Comments No Sex and Gender Information Value Date Recorded Sex Assigned at Not on file 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 Gender Identity Not on file Sexual Orientation Straight 02/19/2021 9: 29 AM CDT Occupation Industry Job Start Date Job End Date retired Not on file Not on file Not on file documented as of this encounter Plan of Treatment Not on file documented as of this encounter Procedures Procedure Name Priority Date/Time Associated Diagnosis Comments RAD ONC ARIA SESSION SUMMARY 02/18/2019 8:04 AM CDT documented in this encounter Results * RAD ONC ARIA SESSION SUMMARY (02/18/2019 8:04 AM CDT) Course Name Lutathera ARIA Course Plan Date 12/10/2018 11:08 AM ARIA Elapsed Days 56 ARIA Course Intent Unknown ARIA Treatment Start Date 12/24/2018 ARIA Treatment Site Lutathera ARIA Dose Given To Date (cGy) 400 ARIA Session Dosage Given (cGy) 200 ARIA Plan ID Lutathera ARIA Fractions Treated 2 ARIA Prescribed Dose Per Fraction (cGy) 200 ARIA Prescribed Total Dose (cGy) 800 ARIA 02/18/2019 8:04 AM CDT us Not In File Miscellaneous RADIATION ONCOLOGY ORD ERABLES Final Result ARIA documented in this encounter Visit Diagnoses Not on filedocumented in this encounter Care Teams Welding Lead Burner Relationship Specialty Start Date End Date Julio César Briseno MD PCP - General 10/01/16 Eren Cr MD Referring Physician Medical Oncology 11/25/18 Yohana Bowen MD Radiation Oncologist Radiation Oncology 11/25/18 documented as of this encounter
--- OUTSIDE RECORDS SUMMARY | 2024-06-25 22:36 | XMS_ITS | Encounter Summary ---
Author Organization [facility] Healthcare Address [address] [place] [address] Care Team Providers Care Woodwork Salvage Inspector Name Role Phone Julio César Briseno MD Primary Care Provider Eren Cr MD Unavailable Yohana Bowen MD Unavailable Encounter Details Date Type Department Care Team (Late st Contact Info) Description 04/13/2019 4:46 PM CDT - 04/13/2019 7:51 PM CDT Surgery [facility] Operating Room [address] [place] [id number] Greyson Reeves MD [address] [place] [phone] [place] [address] EXPLORATORY LAPAROTOMY Surgery Details Date/Time Status Location OR Service Patient Class Case Class Case Type Trauma Case? 04/13/2019 4:46 PM Posted [facility] OR POD 1 331 General Surgery Inpatient Urgent - 12 hours Panel 1 Procedure LRB Anes Op Region Wound Class Comments EXPLORATORY LAPAROTOMY N/A General Abdomen Class I - Clean COLOSTOMY N/A General Abdomen Class II - Clean Con taminated Surgeon Surgeon Role Service Panel Greyson Reeves MD Primary General Surgery 1 Bang Maloney MD Assisting Colorectal 1 Laura Lopes MD Assisting Minor Procedures 1 Case Notes [phone] documented in this encounter Social History Tobacco Use Types Packs/Day Years Used Date Smoking Tobacco: Never Smokeless Tobacco: Never Alcohol Use Standard Drinks/Week Comments Yes 1 (1 standard drink = 0.6 oz pur e alcohol) Comments No Sex and Gender Information Value Date Recorded Sex Assigned at Not on file Legal Sex Female 2:41 PM ROLL PANNER Gender Identity Not on file Sexual Orientation Straight 02/19/2021 9: 29 AM CDT Occupation Industry Job Start Date Job End Date retired Not on file Not on file Not on file documented as of this encounter Last Filed Vital Signs Vital Sign Reading Time Taken Comments Blood Pressure 92/59 04/13/2019 7:50 PM CDT Pulse 105 04/13/2019 7:50 PM CDT Temperature 36.1 ??C (97 ??F) 04/13/2019 6:53 PM CDT Respiratory Rate 12 04/13/2019 7:50 PM CDT Oxygen Saturation 98% 04/13/2019 7:50 PM CDT Inhaled Oxygen Concentration - - Weight 81.6 kg (180 lb) 04/12/2019 12:25 AM CDT Height 160 cm (5' 3 ) 04/12/2019 12:25 AM CDT Body Mass Index 31.89 04/12/2019 12:25 AM CDT documented in this encounter Discharge Summaries * Janelle Jacques MD - 04/23/2019 6:02 AM CDT Inpatient Discharge Summary Admitting Provider: Woodrow Cerna MD Discharge Provider: Greyson Reeves MD Primary Care Physician at Discharge: Julio César Briseno MD [phone] Admission Date: 04/12/2019 Discharge Date: 04/24/2019 Primary [...] of Xgeva (Denosumab) for hypercalcemia. ?? On Saturday, 04/10, the patient had one small bowel [...] Urgent Care and was sent to the [facility] ED where a CT scan was performed that demonstrated a possible partial large bowel obstruction. An NGT was placed to suction, a CBC/CMP/lactic acid were obtained that were within normal limits, and a UA was taken that was positive for WBCs but negative for nitrites. She was transferred to [facility] for a high level of care. Hospital [...] removed 04/17: K 8.1, repeat 3.5. D/c AFTERNOON BABYSITTER. POPM, 1 unit of PRBC's for 6./.0, clear liquids, EKG, dc chief operating officer,POPM, TUMS, Vit D 04/18: D/c epidural. Restart [...] prophylaxis Endocrine follow-up - patient discharged on [address]756S Vitamin D Test Results Pending at Discharge: [...] pounds or strenuous exercise until approved by . * No driving for at least 2 [...] Service Line: Home Health Primary disciplines requested: Longterm Home Health Services: Wound/ Ostomy Care Physician [...] does not heal in 1-2 pouch changes [facility] Home Health You should be contacted by [...] E) 100-5 mg-unit capsule Generic drug: coenzyme L35-kytnkin E fluticasone propionate 50 mcg/actuation nasal spray [...] AM Yohana Bowen MD CAM Rad Onc [facility] CAM 06/10/2019 4:00 PM POD 8 CAM ONC INF CAM7 [facility] INF 06/16/2019 1:00 PM Oksana Rivas, CECILIA ONC CAM 13C OB Outpatient Follow-Up: Future Appointments Date Time Provider Department Center 05/28/2019 1:30 PM MD Neil Monroe/R [facility] 06/10/2019 7:00 AM Yohana Bowen MD CAM Rad Onc [facility] CAM 06/10/2019 4:00 PM POD 8 CAM ONC INF CAM7 [facility] INF 06/16/2019 1:00 PM Oksana Rivas, CECILIA ONC CAM 13C OB Cosigned by Greyson Reeves MD at 04/24/2019 2:17 PM CDT documented in this encounter Discharge Instructions * Discharge Instr - Other Orders* Priscilla Aguilar RN - 04/15/2019 1:39 PM CDT [facility] Home Health You should be contacted by [...] capsuleIndications :supplement Take 1 tablet by mouth gallery director before breakfast 07/04/2016 4 cholecalciferol (VITAMIN D-3) 2,000 unit capsule Take 1 capsule (2,000 Units total) by mouth daily 30 capsule 2 04/25/2019 3 clotrimazole-betam ethasone (LOTRISONE) cream Apply 1 Application topically daily as needed (rash) 4 coenzyme [id number] E 100-5 mg-unit capsuleIndications :supplement Take 1 tablet by mouth gallery director before breakfast 4 DULoxetine (DENISMBALTA) 30 mg capsule Take 1 capsule (30 [...] CDT Endocrine Inpatient Follow Up 04/24/2019 La Schwarz Sheldon [id number] Julio César Briseno MD Admit Date: 04/12/2019 [...] 03/30 120mg SQ. Ca on presentation to [facility] 8.2; following surgical procedure, Ca acutely dropped [...] RN - 04/24/2019 9:56 AM CDT 04/13/19 6446 Discharge Summary Chart reviewed For Medical Necessity Does patient have a planned readmission to hospital planned? No Equipment/Provider Needs Home Provider Services Needs Identified Home Care Agency Information Home Care Agency Type #1: Longterm Home Care Agency Name [facility] Home Care Agency Home Care Agency Contact Spoken to Yenny [facility] Care Agency Used? Not Needed Discharge Additional Assistance Does the patient need discharge transport arranged? No Patient to discharge to home today with family providing transportation. [facility] HH will follow for ostomy care. * Janelle [...] completed shifts: In: 600 [P.O.:600] Out: 2575 [Urine:2050; Stool:525] I/O this shift: In: - Out: [...] Diabetes Inpatient Follow Up 04/21/2019 La Chung [id number] Julio César Briseno MD Admit Date: 04/12/2019 [...] 03/30 120mg SQ. Ca on presentation to [facility] 8.2; following surgical procedure, Ca acutely dropped [...] following modifications:: . She takes vitamin D3 17483 international units daily and has been on [...] Inpatient Follow Up 04/20/2019 La Schwarz Sheldon [id number] Julio César Briseno MD Admit Date: 04/12/2019 [...] arm Pulse: 80 84 86 87 Resp: Temp: 37.2 ??C (99 ??F) 37 ??C [...] thought 2/2 metastatic bony disease. Received denosumab 9/23 120mg SQ. Ca on presentation to [facility] 8.2; following surgical procedure, Ca acutely dropped [...] 4:04 PM CDT Associated attestation - Patience Kirkpatrick MD - 04/20/2019 4:04 PM CDT I have seen and examined the patient on 04/20/19. I agree with the findings and plan of care as documented in the resident's/fellow's note. * Mariusz Trejo, MEGHAN - 04/20/2019 11:20 AM CDT Nutrition Screen [...] > 5 YEARS N/A 02/17/2019 ? ? NC REMOVAL OF TONSILS,<12 Y/O [...] Adult Diet Regular Diet effective now Question: ([facility]) Diet type Answer: Regular 04/18/19 0747 Wt [...] at baseline. Mariusz Trejo MS, RD, LDN [phone] * Janelle Jacques MD - 04/20/2019 5:29 [...] 04/19/2019 5:14 PM CDT Spiritual Care Note Audio/Visual Manager Zafar Wood 04/19/2019 04/19/19 1700 Time Spent Start Time 1530 Stop Time 1545 Time Calculation (min) 15 min Patient Spiritual Assessment Spirituality Assessed Yes Roman Catholic Affiliation Lutheran Active in Baptism Yes Spiritual Needs Communion Clinical Encounter Type Visited With Patient Response Type Continuing visit Routine Visit Follow-up Continue Visiting Yes Reason for visit Roman Catholic needs Referral From Nurse Sacramental Encounters Communion Patient wants communion Communion Given Indicator Yes Outcomes and Interventions Outcomes Minnie affirmation;Sense of peace Interventions Prayer;Active listening;Offer spiritual/confucianist support * Neto Moss MD - 04/19/2019 [...] M.D. Resident, Pain Management, Department of Anesthesiology [facility] 04/18/2019 1:19 PM Cosigned [...] PM Result Value Ref Range Date Notified 20190417 Time Notified 1946 TestName Potassium Plas Called/Read Back gaby cochran Credentials RN Called By mercedes Potassium, whole blood [...] Neto Moss MD Colorectal Surgery Cosigned by Gryeson Reeves MD at 04/19/2019 2:16 PM CDT * Shruti Ralph MD - 04/18/2019 8:09 AM CDT Acute Pain Service Analgesic Catheter Follow up Note Subjective Patient is a??68-year-old female with history of neuroendocrine carcinoma s/p exploratory laparotomy, bilateral salpingo-oophorectomy, partial omentectomy, peritoneal biopsies, right colectomy (10/03/15), 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 Resident, Pain Management, Department of Anesthesiology [facility] 04/18/2019 8:09 AM Cosigned [...] to liver, bone metastasis, hypercholesterolemia, hypertension,??admitted to [facility] on 04/17/19 for evaluation and management of [...] reports that her APAP, duloxetine, gabapentin, hydromorphone AFTERNOON BABYSITTER, and epidural provide relief. Denies side effects from her medications. ?? In past 24 hours, advanced to CLD, NGT removed, masterson removed, voiding spontaneously, passing flatus and stool, ambulating. Current medication regimen: APAP 1000 mg PT Q8H MAUREEN, gabapentin 200 mg PT BID, duloxetine 30 mg QD,bupivicaine at 6 ml/hr, hydromorphone AFTERNOON BABYSITTER. In past 24 hours, received hydromorphone 1 [...] hold enoxaparin PM dose on 04/17/19 IV AFTERNOON BABYSITTER: [] Hydromorphone No basal rate/demand dose__0.1___mg__10___min lock out ___0.6___mg hourly max dose. [x] Discontinue hydromorphone AFTERNOON BABYSITTER, transition to oxycodone 5 mg Q4H PRN (first line) and hydromorphone 0.2 mg Q4H PRN (second line) Systemic Analgesics: [x] Please call if further pain management questions arise. [x] Plan of care done in collaboration with APS attending, DR. Gonzalez. [x] Plan of care discussed with Primary Service. Shruti Ralph M.D. Resident, Pain Management, Department of Anesthesiology [facility] 04/17/2019 8:35 AM [...] Endocrinology Inpatient Consult Progress Note 04/17/2019 La Chung [id number] Julio César Briseno MD CONSULTING PROVIDER: Mj [...] > 5 YEARS N/A 02/17/2019 ? ? NC REMOVAL OF TONSILS,<12 Y/O [...] EXTERNALLY TO ABDOMEN TWICE DAILY NEEDED coenzyme K63-tdpnpsx E (CO Q-10, WITH VIT E,) 100-5 [...] 1,000 mg 1,000 mg feeding tube Q8H [facility] Laura Lopes MD 1,000 mg at 04/14/192028 [...] syringe 40 mg 40 mg subcutaneous Daily-2099 Laura Lopes MD 40 mg at 04/14/192030 [...] flush 0.5-20 mL 0.5-20 mL intra-catheter Q8H [facility] Laura Lopes MD 10 mL at 04/14/19 0531 ??? sodium chloride 0.9% flush 0.5-20 mL 0.5-20 mL intra-catheter PRN Laura Lopes MD ??? sodium chloride 0.9% flush 5-10 mL 5-10 mL intra-catheter Q12H [facility] Neto Moss MD 10 mL [...] 03/30 120mg SQ. Ca on presentation to [facility] 8.2; following surgical procedure, Ca acutely dropped [...] MD PGY-1 Urology - covering CRS P: [id number] Cosigned by Greyson Reeves MD at 04/17/2019 10:05 AM CDT [...] 03/30 120mg SQ. Ca on presentation to [facility] 8.2; following surgical procedure, Ca acutely dropped [...] Low: 90 Labs: Recent Labs Lab Units 04/15/19 2126 WBC K/cumm 3.8 HEMOGLOBIN g/dL 8.0* [...] Epidural/Local Anesthetic Infusion: [x] No Change IV AFTERNOON BABYSITTER: [x] Hydromorphone No basal rate/demand dose__0.1___mg__10___min lock [...] MD PGY-1 Urology - covering CRS P: [id number] Cosigned by Greyson Reeves MD at 04/16/2019 [...] 04/15/2019 1:15 PM CDT Spiritual Care Note Chaplain Zafar Claire 04/15/2019 04/15/19 1300 Time Spent Start Time [...] PM Result Value Ref Range Product code A0829Q06 Unit Number [id number] Product Blood Type APOS Dispense Status RETURNED Product code [id number] Unit Number [id number] Product Blood Type APOS Dispense Status RETURNED [...] MD PGY-1 Urology - covering CRS P: [id number] Cosigned by Greyson Reeves MD at 04/15/2019 12:41 PM CDT * hSruti Ralph MD - 04/15/2019 9:15 AM CDT Images from the original note were not included. Acute Pain Service Analgesic Catheter Follow up Note?? 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 Patient reports that her hydromorphone AFTERNOON BABYSITTER provides partial relief. Patient reports that her current epidural is not as effective as an epidural that she previously had (however, her epidural rate was decreased to 3 mL/hr due to hypotension). Denies side effects from hermedications. NPO. Receiving medications PT and IV. Current medication regimen: APAP 1000 mg PT Q8H MAUREEN, gabapentin 200 mg PT BID, bupivicaine at 3 ml/hr, hydromorphone AFTERNOON BABYSITTER. VS notable for post-operative tachycardia and hypotension [...] 8 mg/kg/hr intravenous Continuous 54.4 mL/hr at 04/15/19 0051 8 mg/kg/hr at 04/15/19 005 ??? [Held by Provider] DULoxetine (CYMBALTA) extended release capsule 30 mg 30 [...] possible new one in segment 5 that measuresabout 1.2 cm. Liver MR recommended for better [...] Analgesic Catheter out, tip intact ?? IV AFTERNOON BABYSITTER: ?? [x] Hydromorphone [] Morphine [] Fentanyl No basal rate/demand dose__0.1 mg 10___min lock out __0.6____mg hourly max dose. ?? [] Discontinue AFTERNOON BABYSITTER [] IV AFTERNOON BABYSITTER demand amount to []increase____mg []decrease____mg with____ minute [...] M.D. Resident, Pain Management, Department of Anesthesiology [facility] 04/15/2019 9:55 AM Cosigned [...] Consult Progress Note 04/15/2019 La Schwarz Sheldon [id number] Julio César Briseno MD CONSULTING PROVIDER: Mj [...] > 5 YEARS N/A 02/17/2019 ? ? NC REMOVAL OF TONSILS,<12 Y/O [...] EXTERNALLY TO ABDOMEN TWICE DAILY NEEDED coenzyme D57-brcewjd E (CO Q-10, WITH VIT E,) 100-5 [...] 1,000 mg 1,000 mg feeding tube Q8H [facility] Laura Lopes MD 1,000 mg at 04/14/192028 ??? bupivacaine preservative free in 0.9% sodium chloride 250 mL 0.1 % (1,000 mcg/mL) epidural Continuous Yovany Alvarez MD ??? calcium gluconate 12,000 mg in sodium chloride 0.9% 1,000 mL (12 mg/mL) infusion 8 mg/kg/hr intravenous Continuous Neto Moss MD 54.4 mL/hr at 04/15/19 0051 8 mg/kg/hr at 04/15/19 0051 ??? [Held by Provider] DULoxetine (CYMBALTA) extended release capsule 30 mg 30 [...] flush 0.5-20 mL 0.5-20 mL intra-catheter Q8H [facility] Laura Lopes MD 10 mL [...] 03/30 120mg SQ. Ca on presentation to [facility] 8.2; following surgical procedure, Ca acutely dropped [...] 3:54 PM CDT Spiritual Care Note Chaplain Stephen Dakotah 04/14/2019 04/14/19 1500 Time Spent Start Time 0320 Stop Time 0335 Time Calculation (min) 15 min Patient Spiritual Assessment Spirituality Assessed Yes Roman Catholic Affiliation Lutheran Active in Baptism Yes Clinical Encounter Type Visited With Patient [...] occasionally subsides. Patient reports that her hydromorphone AFTERNOON BABYSITTER provides partial relief. Patient reports that her current epidural is not as effective as an epidural that shepreviously had (however, her epidural rate was decreased to 3 mL/hr due to hypotension). Denies side effects from her medications. Current medication regimen: APAP 1000 mg PT Q8H MAUREEN, gabapentin 200 mg PT BID, bupivicaine at 3 ml/hr, hydromorphone AFTERNOON BABYSITTER Laboratory studies notable for HH 10.1/30.2, plt [...] dose of anticoagulant received: enoxaparin 04/12/19 @ 2137 Epidural Analgesic Infusion: [x] Bupivacaine 0.1% mL/hour: [...] Analgesic Catheter out, tip intact ?? IV AFTERNOON BABYSITTER: ?? [x] Hydromorphone [] Morphine [] Fentanyl No basal rate/demand dose__0.1 mg 10___min lock out __0.6____mg hourly max dose. ?? [] Discontinue AFTERNOON BABYSITTER [] IV AFTERNOON BABYSITTER demand amount to []increase____mg []decrease____mg with____ minute [...] M.D. Resident, Pain Management, Department of Anesthesiology [facility] 04/14/2019 2:26 PM Cosigned by Aleksandra Gonzalez MD at 04/14/2019 3:13 PM CDT Associated attestation - Aleksandra Gonzalez MD - 04/14/2019 3:13 PM CDT I have seen and examined the patient on 04/14/19. I agree with the findings and plan of care as documented in the resident's/fellow's note. * Poncho Carter MD - 04/14/2019 1:32 PM CDT CRS [...] Notified 1120 TestName Calcium Called/Read Back Jane Perkinsentials RN Called By Prepare RBC: 2 Units Collection Time: 04/14/19 12:14 PM Result Value Ref Range Product code N6759K53 Unit Number [id number] Product Blood Type APOS Dispense Status CROSSMATCHED Product code Y5258W89 Unit Number [id number] Product Blood Type APOS Dispense Status CROSSMATCHED [...] MD PGY-1 Urology - covering CRS P: [id number] Cosigned by Greyson Reeves MD at 04/15/2019 8:16 AM CDT * Yovany Alvarez MD - 04/13/2019 11:29 PM CDT Post-Op Check Note [place] [id number] Pt returns from the OR 04/13/2019 s/p [...] pathway. Yovany Alvarez MD 04/13/2019 * Priscilla Aguilar RN - 04/13/2019 8:32 AM CDT 04/13/19 0827 Referral Data Referral Source Top Closer Referral Reason Discharge Planning County Information County of Residence [place], [place] Patient Information Primary Caregiver Self Support System Spouse/Significant Other;Children Support system contact info (name, phone, availablity) , Alejo Chung ; daughter Caroline Chung Prior Level of Functioning Durable Medical Equipment None Living Arrangement House;Lives with someone Behavior Oriented Potential Discharge Needs Anticipated discharge level of care Return Home Communications Fiduciary Responsibility Patient/Designated decision maker was informed of [facility] fiduciary relationship as necessary Impression: Patient is [...] Admit Source: Patient indicated she transferred from [facility] but that she had not been [...] in agreement with the aftercare plan. * Boris Wiley, Poncho Hopper MD - 04/13/2019 7:06 AM CDT CRS Progress Note Subjective The patient is a 68 yo F with metastatic ileal neuroendocrine tumor, presenting with a large bowel obstruction. Patient was seen and examined this morning No acute events overnight NGT in [facility] to [facility] Got enemas for preparation for colonoscopy this [...] MD PGY-1 Urology - covering CRS P: [id number] Cosigned by Greyson Reeves MD at 04/13/2019 [...] 04/13/2019 3:01 PM CDT Source Note - Jeff Maggy CECILIA Paul - 04/13/2019 8:19 AM CDT Images from the original note were not included. Center for Preoperative Assessment and Planning Preoperative Evaluation Record Inpatient Preoperative Evaluation ([facility]) Date: 04/13/19 Anesthesia Evaluation Procedure(s): EXPLORATORY LAPAROTOMY [...] Hypertension + Hyperlipidemia Pertinent negatives: CAD ; RI ; valvular heart disease; atrial fibrillation; arrhythmia; [...] HYPERTHERMIA <<<< - questionable episode in gra ndson . Patient and her daughter denies any history of anesthesia or surgery problems except for PONV. Pt expresses interest in epidural for pain control as had success w/ this post- op in the past Med list reviewed - notable for enoxaparin (LOVENOX) 40mg SC daily for PPx. Last dose per Sep0. Obstructive sleep apnea (KYLER) screening status is [...] > 5 YEARS N/A 02/17/2019 ? ? NC REMOVAL OF TONSILS,<12 Y/O [...] a month -- -- Historical Provider, coenzyme K53-wpvtezi E (CO Q-10, WITH VIT E,) 100-5 mg-unit capsule More than a month -- -- Historical Provider, diphenoxylate-atropine (LOMOTIL) 2.5-0.025 mg per tablet More than a month 03/02/19 -- Eren Cr Jr., MD Take 1 tablet by mouth 4 (four) times a day as needed for diarrhea DULoxetine DR (CYMBALTA) 30 mg capsule Past Week -- -- [...] intravenous, Continuous, Last Rate: 100 mL/hr at 04/12/19 173, 100 mL/hr at 04/12/191731 ??? [Held by Provider] DULoxetine DR (CYMBALTA) extended release capsule 30 mg, 30 mg, oral, Daily ??? enoxaparin (LOVENOX) syringe 40 mg, 40 mg, subcutaneous, Daily-2100, 40 mg at 04/12/197 ??? HYDROmorphone (DILAUDID) injection 0.2 mg, 0.2 [...] Pulse: 84 87 90 Resp: 18 18 Temp: 36.8 ??C (98.2 ??F) 37.3 ??C [...] andis scheduled for her third cycle this Saturday, 04/15. At that visit she was given a dose of Xgeva (Denosumab) for hypercalcemia. She states that after this dose she started to note a change in her bowel movements as they became firmer. On Saturday, 04/10, the patient had one small bowel [...] Urgent Care and was sent to the [facility] ED where a CT scan was performed that demonstrated a possible partial large bowel obstruction. An NGT was placed to suction, a CBC/CMP/lactic acid were obtained that were within normal limits, and a UA was taken that was positive for WBCs but negative for nitrites. She was transferred to [facility] for a high level of care. On [...] > 5 YEARS N/A 02/17/2019 ? ? NC REMOVAL OF TONSILS,<12 Y/O [...] 4 gram packet clotrimazole-betamethasone (LOTRISONE) cream coenzyme K43-zqgjtsn E (CO Q-10, WITH VIT E,) 100-5 [...] are negative. Objective Vitals: Arrival Vitals [04/12/19 002] Temp 36.6 ??C (97.9 ??F) Pulse 97 Resp 18 BP 127/68 SpO2 93 % Temp src Oral Heart Rate Source Monitor Patient Position Sitting BP Location Right arm FiO2 (%) Most Recent : Vitals: 04/12/1924 BP: 127/68 Pulse: 97 Resp: 18 Temp: [...] upload imaging - nominate OSH CT for [facility] radiology reading - obtain AM labs (CBC, BMP, Mg, Phos) - NPO, NGT to LIWS, mIVF at 100cc/hr - consider GI consult for [...] (last 4 hours) Pre-Op Checklist Row Name 04/14/191 04/14/19 194 Patient/Chart Verification Patient ID Verified Verbal;Armband [...] (c) = Cosigned By Initials Name EK Nica Smith RN CB Leanne Bach RN Vascular Access Documentation (last 4 hours) [...] Properties Placement Date: 04/13/19 -BS Placement Time: 1558 -BS, created via procedure documentation Size (Gauge): 18 G -BS Location Orientation: Left -BS Location: Hand -BS Site Prep: Alcohol -BS Insertion attempts: 1 -BS PICC Double Lumen 04/14/19 Non-tunneled Power #1 Red, #2 Purple, Left Upper arm;Brachial Line Properties Placement Date: 04/14/19 -CB Placement Time: 2245 -CB Catheter Time Out Checklist Completed: Yes [...] locate and cannulate vein -CB Lot #: [id number] -CB Expiration Date: 02/05/20 -CB Trimmed Length [...] By, (c) = Cosigned By Initials Name BS GEORGIA Vizcaino RN CB Cierra Renee Bax, RN Plan: Follow up: Leanne Bach RN [...] 02/18 followedby Octretotide who was admitted to [facility] after presenting with cramping abdominal pain, nausea, and em esis since Saturday of last week that progressively continued to worsen. She presented to [place] where imaging was concerning for a colonic obstruction with a focal transition point at the level of the rectosigmoid junction with stable disease in the liver. She was transferred to [facility] for further care and underwent an ex [...] and has 4 children. She lives in [place] in [place]. She is currently retired FAMILY HISTORY: Her [...] time, she also underwent right colectomy in [facility] OR by Dr. Greyson Reeves. Biopsy [...] Treatment & Therapy Plans for La Chung Karishma Oncology Chemotherapy Treatment: Octreotide 28 Day Cycles [...] > 5 YEARS N/A 02/17/2019 ? ? NC REMOVAL OF TONSILS,<10 Y/O [...] a month at Unknown time ??? coenzyme U58-jjapbtd E (CO Q-10, WITH VIT E,) 100-5 [...] 1,000 mg, 1,000 mg, feeding tube, Q8H [facility], Laura Lopes MD ??? bupivacaine preservative free [...] 200 mg, 200 mg, feeding tube, BID, Luara Lopes MD, 200 mg at 04/14/19 0958 [...] body CBC: Recent Labs Lab Units 04/14/19 0904/14/19 0145 WBC K/cumm 5.9 6.3 HEMOGLOBIN g/dL [...] and end colostomy with Dr. Kelley 04/13. We will follow up pathology from [...] will arrange for follow up at discharge. [phone] Cosigned by Eren Cr Jr., MD at 04/14/2019 3:19 PM CDT Associated attestation - Eren Cr MD - 04/14/2019 3:19 PM CDT Images from the original note were not included. SURFBOARD DESIGNER Attestation La Chung : [id number] DATE OF VISIT: 04/14/19 I have seen and examined the patient on 04/14/2019 with the Nurse Practitioner and I have reviewed the SURFBOARD DESIGNER note and agree with the findings documented [...] Back Kathy Banker Credentials RN Called By rosa maria Albumin Collection Time: 04/14/19 1:45 AM Result [...] PM Result Value Ref Range Product code [id number] Unit Number [id number] Product Blood Type APOS Dispense Status CROSSMATCHED Product code [id number] Unit Number [id number] Product Blood Type APOS Dispense Status CROSSMATCHED [...] the plan of care. Eren Cr MD Senior Major Gifts Officer [facility] [employer] * Mj Chiu MD [...] bloody emesis, urinary symptoms. 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 An element of diverticulitis is not excluded, given that there are some adjacent diverticula. NGT was placed to suction and she was transferred to [facility] for further management. On admission to [place], patient was seen by GI with plans [...] from surgical procedure currently managed with Dilaudid AFTERNOON BABYSITTER. Past medical history: Past Medical History: Diagnosis [...] > 5 YEARS N/A 02/17/2019 ? ? NC REMOVAL OF TONSILS,<12 Y/O [...] EXTERNALLY TO ABDOMEN TWICE DAILY NEEDED coenzyme Y87-fdirenp E (CO Q-10, WITH VIT E,) 100-5 [...] 1,000 mg 1,000 mg feeding tube Q8H [facility] Laura Lopes MD ??? bupivacaine preservative free [...] 03/30 120mg SQ. Ca on presentation to [facility] 8.2; following surgical procedure, Ca acutely dropped [...] partial omentectomy and R colectomy (2015), HTN, HLD, presenting with abdominal pain. Patient reports being in her usual state of health until Saturday when she developed acute onset abdominal pain [...] symptoms. Given her symptoms, she presented to [facility] ED where a CT scan [...] and the patietn was subsequently transferred to [facility] for further management. Of note, patient was [...] > 5 YEARS N/A 02/17/2019 ? ? NC REMOVAL OF TONSILS,<12 Y/O [...] a month at Unknown time ??? coenzyme I69-ocpqiie E (CO Q-10, WITH VIT E,) 100-5 [...] file Gets together: Not on file Attends confucianist service: Not on file Active member of [...] file Social History Narrative : (Added by TW [...] partial omentectomy and R colectomy (2016), HTN, HLD,presenting with abdominal pain. reprots abdominal [...] and the patietn was subsequently transferred to [facility] for further management. - continue NGT to [...] via the central GI phone tree at [phone], option 3. From 5pm to 7:30am Saturday through Saturday, and from Saturday 5pm to Saturday 7:30am, the ironing pleater GI fellow covering the Biliary service can be reached at [phone]. Alex Hutton MD Gastroenterology Fellow Cosigned by Palmer Bobby MD at 04/14/2019 8:07 AM CDT documented in this encounter Nursing Notes * Pamela Elizabeth RN - 04/24/2019 5:11 PM CDT Wound/Ostomy [...] Pouch Supplies: at bedside Pouch Type: Coloplast [place] Flex 2 piece Drainage: Not to gravity Excretions: Stool Gas Excretion Color: cr yellow Comments: 04/24/19 1030 Colostomy End RLQ Placement Date/Time: 04/13/19 1825 [...] concerns please contact the Wound/Ostomy department at [phone] Pamela Elizabeth RN * Pamela Elizabeth RN [...] Gas Excretion Color: light brown soft Comments: 04/23/19 0930 Colostomy End RLQ Placement Date/Time: 04/13/191824 Colostomy [...] concerns please contact the Wound/Ostomy department at [phone] Pamela Elizabeth RN * Pamela Elizabeth RN [...] 04/20/19 1300 Colostomy End RLQ Placement Date/Time: 04/13/191824 [...] concerns please contact the Wound/Ostomy department at [phone] Pamela Elizabeth RN * Mayela Hathaway RN [...] concerns please contact the Wound/Ostomy department at [phone] Pamela Elizabeth RN * Pamela Elizabeth RN [...] 04/15/19 1300 Colostomy End RLQ Placement Date/Time: 04/13/19 [...] concerns please contact the Wound/Ostomy department at [phone] Pamela Elizabeth RN * Pamela Elizabeth RN [...] gravity Excretions: Effluent Excretion Color: serosanguineous Comments: 04/14/19929 Colostomy End RLQ Placement Date/Time: 04/13/191824 Colostomy Type: End Location: RLQ Stomal Appliance 1 piece;Intact Stoma Assessment Red (viewed through pouch) Education: Education packet reviewed: post op day 1 patient very sleepy answered spouse questions information left in room Plan of care discussed with: RN Questions answered: Yes Wound/Ostomy will follow patient: yes Any questions or concerns please contact the Wound/Ostomy department at [phone] Pamela Elizabeth RN documented in this encounter Miscellaneous Notes * Plan of Care - Yenny Villegas RN - 04/24/2019 4:07 PM CDT Referral received for SN. HH services arranged through [facility]- [place] office ([phone]). [facility] Die Cast Die Maker contact numbers; [phone] or [phone]. * Plan of Care - Nichole Nash RN - 04/24/2019 3:08 PM CDT Goals: Clinical Goals for the Shift: up ad amyela, monitor pouch, pain control, ostomy teaching Summary: [...] 03/30 120mg SQ. 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 Would not use denosumab again. * Subjective & Objective - Lala Martinez MD - 04/24/2019 10:52 AM CDT Endocrine Inpatient Follow Up 04/24/2019 La Karishma Chung [id number] Julio César Briseno MD Admit Date: 04/12/2019 Length of Stay: 12 SUBJECTIVE: The patient is a 68 yo F with metastatic ileal neuroendocrine tumor, presenting with a large bowel obstruction s/p Ex Lap + End colostomy. Endocrine consulted for hypocalcemia. ?? Interval History: Blood sugar: Recent Labs Lab Units 04/23/19201804/22/19 [...] CDT Endocrine Diabetes Inpatient Follow Up? 04/23/2019?La Chung?[id number]?Greyson Reeves MD ?? Admit Date:??04/12/2019?Length of Stay:??11 [...] PM CDT * Plan of Care - Darling uLnd OT - 04/23/2019 12:33 PM CDT Problem: [...] CDT Endocrine Diabetes Inpatient Follow Up? 04/22/2019?La Chung?[id number]? Greyson Reeves MD ?? Admit Date:??04/12/2019?Length of [...] chief complaint of abdominal pain and vomiting.?? Referrals:??[facility] to follow Support:??, Alejo and two daughters [...] 03/30 120mg SQ. Ca on presentation to [facility] 8.2; following surgical procedure, Ca acutely dropped [...] Endocrine Diabetes Inpatient Follow Up 04/21/2019 La Schwarz Sheldon [id number] Julio César Briseno MD Admit Date: 04/12/2019 [...] Diabetes Inpatient Follow Up ?? 04/20/2019 La Chung [id number] Julio César Briseno MD ?? Admit Date: [...] Endocrine Diabetes Inpatient Follow Up 04/20/2019 La Chung [id number] Julio César Briseno MD Admit Date: 04/12/2019 [...] arm Pulse: 80 84 86 87 Resp: Temp: 37.2 ??C (99 ??F) 37 ??C [...] (H) 04/14/2019 * Hospital Course - Katarina Hall, SURFBOARD DESIGNER - 04/20/2019 3:04 PM CDT 68 year [...] removed 04/17: K 8.1, repeat 3.5. D/c AFTERNOON BABYSITTER. POPM, 1 unit of PRBC's for 6.9/21.0, clear liquids, EKG, dc chief operating officer,POPM, TUMS, Vit D 04/18: D/c epidural. Restart Lovenox. BMP Q12h. Restart statin+BP meds. SLIV. 04/19: Ditropan TID for OAB. KCl 60mEq 04/20: KCl 40mEq. Pt refusing rehab, pouching issues * Plan of Care - Priscilla Aguilar RN - 04/20/2019 1:12 PM CDT Report per DCAM:??ostomy teaching Impression:??Patient is a??68 y.o.??female??with chief complaint of abdominal pain and vomiting.?? Referrals:??[facility] to follow Support:??, Alejo and two daughters [...] weekend assistance, please call the on-call weekend director of casework at #[phone]. Thank you! * Plan of Care - [...] pain control with the use of her AFTERNOON BABYSITTER. Patient will get labs draws regularly. * [...] Bette Salazar RN, BSN, MS, CCDS Clinical Manager [employer] [phone] * Plan of Care - Priscilla Aguilar RN - 04/17/2019 12:50 PM CDT Report per DCAM:??electrolyte replacement, unit transfused, EKG, AM labs Impression: Patient is a??68 y.o.??female??with chief complaint of abdominal pain and vomiting.?? Referrals:??[facility] to follow Support:??, Alejo and two daughters [...] 03/30 120mg SQ. Ca on presentation to [facility] 8.2; following surgical procedure, Ca acutely dropped [...] is being adequately controlled. Patient has a AFTERNOON BABYSITTER and epidural. Patient is up ad mayela [...] times, advance diet Summary: Patient educated on AFTERNOON BABYSITTER and button pushing. She has ambulated in [...] will continue to follow. Jessica Rice LCSW [phone] * Plan of Care - Kathy Zuleta [...] into 80's while sleeping, pain controlled with AFTERNOON BABYSITTER and epidural, green output from NG tube, [...] vomiting. Referrals: referral sent through [facility] to [facility] HH Support: , Alejo and two daughters [...] her pain has been controlled with the AFTERNOON BABYSITTER pump.The patient ambulated in the room and [...] 03/30 120mg SQ. Ca on presentation to [facility] 8.2; following surgical procedure, Ca acutely dropped [...] moderate assistance, NG intact with green output, AFTERNOON BABYSITTER and epidural for pain, drainage shadowing from surgical incision-dressing still intact, will continue to monitor. * Op Note - Greyson Reeves MD - 04/13/2019 4:46 PM CDT SURGEON Greyson Reeves MD FIRST SECONDARY SET UP MAN Laura Walker PREOPERATIVE DIAGNOSIS Large bowel obstruction [...] Anesthesiologist: Shawn Green MD; Thong Abraham MD EDUCATION MANAGERS: Dm Richardson CRNA; Janeen Weston CRNA Direct Care Counselor: Adelita Barba RN; Thais Julio, [place]; Susana Benito RN Direct Care Counselor Relief: Bebe Claire RN Scrub Relief: Lucita [...] condition. Epidural catheter Perifix with product code [id number] ref [id number] is MRI compatible Luis M Bright MD 04/13/2019 1:23 PM Cosigned by Aleksandra Gonzalez MD at 04/13/2019 2:27 PM CDT Associated attestation - Aleksandra Gonzalez MD - 04/13/2019 2:27 PM CDT I was present for the entire procedure. * Perioperative Nursing Note - Babs Butts RN - 04/13/2019 12:43 PM CDT Ostomy jason noted on abd. * Plan of Care - Darling Us RN - 04/13/2019 8:33 AM CDT [...] discharge needs will improve Outcome: Progressing * Plan of Care - Dolly Ventura RN - 04/12/2019 10:37 [...] from falls Outcome: Progressing * Plan of Care - Neto Engle RN - 04/12/2019 3:39 [...] CDT Large bowel obstruction (CMS/HCC) Case Notes [phone] EXPLORATORY LAPAROTOMY 04/13/2019 3:23 PM CDT Large bowel obstruction (CMS/HCC) Case Notes [phone] APTT Timed 04/12/2019 9:48 PM CDT PROTIME-INR [...] (ABNORMAL) Calcium, ionized (04/24/2019 5:42 AM CDT) Calcium, Ionized 5.15(H) 4.50 - 5.10 mg/dL [facility] Blood specimen (specimen) 04/24/2019 5:42 AM CDT 04/24/2019 6:14 AM CDT us Greyson Reeves MD LAB BLOOD ORDERABLES Final R esult [place] [address] * Basic metabolic panel (04/23/2019 8:19 PM CDT) Sodium 136 135 - 145 mmol/L [facility] Potassium, pl 3.9 3.3 - 4.9 mmol/L [facility] Chloride 100 97 - 110 mmol/L [facility] CO2 29 22 - 32 mmol/L [facility] Anion gap 7 2 - 15 mmol/L [facility] BUN 8 8 - 25 mg/dL [facility] Creatinine 0.76 0.60 - 1.10 mg/dL [facility] Glucose 145 70 - 199 mg/dL [facility] [...] 2017. Calcium 9.4 8.5 - 10.3 mg/dL [facility] Blood specimen (specimen) 04/23/2019 8:19 PM CDT 04/23/2019 8:49 PM CDT Greyson Reeves MD LAB BLOOD ORDERABLES Final R esult Performing Organization Address [facility]/ZIP Co de Phone Number [place] [address] * Calcium, ionized (04/23/2019 8:19 PM CDT) Calcium, Ionized 4.92 4.50 - 5.10 mg/dL [facility] Blood specimen (specimen) 04/23/2019 8:19 PM CDT 04/23/2019 8:57 PM CDT Greyson Reeves MD LAB BLOOD ORDERABLES Final R esult Performing Organization Address City/[facility] Co de Phone Number JASON [address] [address] * Calcium, ionized (04/23/2019 5:52 AM CDT) Calcium, Ionized 4.86 4.50 - 5.10 mg/dL [facility] Blood specimen (specimen) 04/23/2019 5:52 AM CDT 04/23/2019 6:43 AM CDT Greyson Reeves MD LAB BLOOD ORDERABLES Final R esult Performing Organization Address [facility] de Phone Number [address] [address] * (ABNORMAL) Basic metabolic panel (04/22/2019 9:59 PM CDT) Pathologist [facility] Sodium 135 135 - 145 mmol/L [facility] Potassium, pl 3.7 3.3 - 4.9 mmol/L [facility] Chloride 99 97 - 110 mmol/L [facility] CO2 28 22 - 32 mmol/L [facility] Anion gap 8 2 - 15 mmol/L [facility] BUN 6(L) 8 - 25 mg/dL [facility] Creatinine 0.79 0.60 - 1.10 mg/dL [facility] Glucose 127 70 - 199 mg/dL [facility] [...] 2017. Calcium 9.2 8.5 - 10.3 mg/dL [facility] Blood specimen (specimen) 04/22/2019 9:59 PM CDT 04/22/2019 10:54 PM CDT Greyson Reeves MD LAB BLOOD ORDERABLES Final R esult Performing Organization Address [facility] Co de Phone Number [address] [address] * (ABNORMAL) Calcium, ionized (04/22/2019 6:27 PM CDT) Calcium, Ionized 5.11(H) 4.50 - 5.10 mg/dL [facility] Blood specimen (specimen) 04/22/2019 6:27 PM CDT 04/22/2019 7:29 PM CDT Greyson Reeves MD LAB BLOOD ORDERABLES Final R esult Performing Organization Address [facility] Co de Phone Number [address] [address] * Calcium, ionized (04/22/2019 5:56 AM CDT) Calcium, Ionized 5.04 4.50 - 5.10 mg/dL [facility] Blood specimen (specimen) 04/22/2019 5:56 AM CDT 04/22/2019 6:13 AM CDT Greyson Reeves MD LAB BLOOD ORDERABLES Final R esult Performing Organization Address [facility] Co de Phone Number [address] [address] * (ABNORMAL) Basic metabolic panel (04/21/2019 10:10 PM CDT) Sodium 139 135 - 145 mmol/L [facility] Potassium, pl 3.4 3.3 - 4.9 mmol/L [facility] Chloride 103 97 - 110 mmol/L [facility] CO2 30 22 - 32 mmol/L [facility] Anion gap 6 2 - 15 mmol/L [facility] BUN 5(L) 8 - 25 mg/dL [facility] Creatinine 0.70 0.60 - 1.10 mg/dL [facility] Glucose 142 70 - 199 mg/dL [facility] [...] 2017. Calcium 9.3 8.5 - 10.3 mg/dL [facility] Blood specimen (specimen) 04/21/2019 10:10 PM CDT 04/21/2019 10:41 PM CDT Greyson Reeves MD LAB BLOOD ORDERABLES Final R esult Performing Organization Address [facility] Co de Phone Number [address] [address] * Calcium, ionized (04/21/2019 6:18 PM CDT) Calcium, Ionized 5.00 4.50 - 5.10 mg/dL [facility] Blood specimen (specimen) 04/21/2019 6:18 PM CDT 04/21/2019 6:50 PM CDT Greyson Reeves MD LAB BLOOD ORDERABLES Final R esult Performing Organization Address [facility] Co de Phone Number [address] [address] * Calcium, ionized (04/21/2019 5:48 AM CDT) Calcium, Ionized 4.95 4.50 - 5.10 mg/dL [facility] Blood specimen (specimen) 04/21/2019 5:48 AM CDT 04/21/2019 6:24 AM CDT Greyson Reeves MD LAB BLOOD ORDERABLES Final R esult Performing Organization Address [facility] de Phone Number [address] [address] * Vitamin D 25 hydroxy (04/20/2019 10:22 PM CDT) [facility] Vitamin D 25-OH 34 30 - 80 ng/mL [facility] Blood specimen (specimen) 04/20/2019 10:22 PM CDT 04/20/2019 11:31 PM CDT Greyson Reeves MD LAB BLOOD ORDERABLES Final R esult Performing Organization Address [facility] de Phone Number [address] [address] * (ABNORMAL) Basic metabolic panel (04/20/2019 10:22 PM CDT) [facility] Sodium 140 135 - 145 mmol/L [facility] Potassium, pl 3.1(L) 3.3 - 4.9 mmol/L [facility] Chloride 104 97 - 110 mmol/L [facility] CO2 28 22 - 32 mmol/L [facility] Anion gap 8 2 - 15 mmol/L [facility] BUN 6(L) 8 - 25 mg/dL [facility] Creatinine 0.66 0.60 - 1.10 mg/dL [facility] Glucose 128 70 - 199 mg/dL [facility] [...] 2017. Calcium 9.2 8.5 - 10.3 mg/dL [facility] Blood specimen (specimen) 04/20/2019 10:22 PM CDT 04/20/2019 11:31 PM CDT Greyson Reeves MD LAB BLOOD ORDERABLES Final R esult Performing Organization Address [facility] Co de Phone Number [address] [phone] * Phosphorus (04/20/2019 10:22 PM CDT) Phosphorus, pl 2.6 2.3 - 4.5 mg/dL [facility] Blood specimen (specimen) 04/20/2019 10:22 PM CDT 04/20/2019 11:31 PM CDT Greyson Reeves MD LAB BLOOD ORDERABLES Final R esult Performing Organization Address [facility] de Phone Number [address] [phone] * Magnesium (04/20/2019 10:22 PM CDT) Pathologist [facility] Magnesium 1.8 1.4 - 2.5 mg/dL [facility] Blood specimen (specimen) 04/20/2019 10:22 PM CDT 04/20/2019 11:31 PM CDT Greyson Reeves MD LAB BLOOD ORDERABLES Final R esult Performing Organization Address [facility] Co de Phone Number [address] [phone] * (ABNORMAL) Potassium, whole blood (04/20/2019 5:39 PM CDT) Potassium, bld 3.2(L) 3.3 - 4.9 mmol/L [facility] Blood specimen (specimen) 04/20/2019 5:39 PM CDT 04/20/2019 6:13 PM CDT Greyson Reeves MD LAB BLOOD ORDERABLES Final R esult Performing Organization Address [facility] Co de Phone Number [address] [address] * (ABNORMAL) Calcium, ionized (04/20/2019 5:39 PM CDT) Calcium, Ionized 5.16(H) 4.50 - 5.10 mg/dL [facility] Blood specimen (specimen) 04/20/2019 5:39 PM CDT 04/20/2019 6:13 PM CDT Greyson Reeves MD LAB BLOOD ORDERABLES Final R esult Performing Organization Address [facility] de Phone Number [address] [address] * (ABNORMAL) Albumin (04/20/2019 6:07 AM CDT) [facility] Albumin 2.9(L) 3.5 - 5.0 g/dL [facility] Blood specimen (specimen) 04/20/2019 6:07 AM CDT 04/20/2019 6:44 AM CDT Greyson Reeves MD LAB BLOOD ORDERABLES Final R esult Performing Organization Address [facility] de Phone Number [address] [address] * (ABNORMAL) Basic metabolic panel (04/20/2019 6:07 AM CDT) Pathologist [facility] Sodium 141 135 - 145 mmol/L [facility] Potassium, pl 3.4 3.3 - 4.9 mmol/L [facility] Chloride 105 97 - 110 mmol/L [facility] CO2 29 22 - 32 mmol/L [facility] Anion gap 7 2 - 15 mmol/L [facility] BUN 4(L) 8 - 25 mg/dL [facility] Creatinine 0.60 0.60 - 1.10 mg/dL [facility] Glucose 110 70 - 199 mg/dL [facility] [...] 2017. Calcium 8.9 8.5 - 10.3 mg/dL [facility] Blood specimen (specimen) 04/20/2019 6:07 AM CDT 04/20/2019 6:44 AM CDT Greyson Reeves MD LAB BLOOD ORDERABLES Final R esult Performing Organization Address [facility] Co de Phone Number [address] [address] * Calcium, ionized (04/20/2019 6:07 AM CDT) Calcium, Ionized 4.93 4.50 - 5.10 mg/dL [facility] Blood specimen (specimen) 04/20/2019 6:07 AM CDT 04/20/2019 6:44 AM CDT Greyson Reeves MD LAB BLOOD ORDERABLES Final R esult Performing Organization Address [facility] Co de Phone Number [address] [address] * (ABNORMAL) CBC without differential (04/19/2019 10:10 PM CDT) WBC 5.6 3.8 - 9.9 K/cumm [facility] Hgb 10.0(L) 11.9 - 15.5 g/dL [facility] Hct 29.5(L) 35.6 - 45.5 % [facility] Plt 137(L) 150 - 400 K/cumm [facility] MPV 10.9 9.1 - 12.3 fL [facility] RBC 3.35(L) 3.90 - 5.20 M/cumm [facility] MCV 88.1 81.3 - 96.4 fL [facility] MCH 29.9 27.1 - 33.3 pg [facility] MCHC 33.9 32.3 - 35.7 g/dL [facility] RDW CV 15.3(H) 11.1 - 14.9 % [facility] RDW SD 49.1(H) 35.7 - 48.1 fL [facility] NRBC abs 0.00 0.00 - 0.01 K/cumm [facility] Blood specimen (specimen) 04/19/2019 10:10 PM CDT 04/19/2019 10:44 PM CDT Greyson Reeves MD LAB BLOOD ORDERABLES Final R esult Performing Organization Address [facility] de Phone Number [address] [address] * Phosphorus (04/19/2019 10:10 PM CDT) [facility] Phosphorus, pl 2.4 2.3 - 4.5 mg/dL [facility] Blood specimen (specimen) 04/19/2019 10:10 PM CDT 04/19/2019 10:44 PM CDT Greyson Reeves MD LAB BLOOD ORDERABLES Final R esult Performing Organization Address [facility] Co de Phone Number [address] [address] * Magnesium (04/19/2019 10:10 PM CDT) [facility] Magnesium 1.7 1.4 - 2.5 mg/dL [facility] Blood specimen (specimen) 04/19/2019 10:10 PM CDT 04/19/2019 10:44 PM CDT Greyson Reeves MD LAB BLOOD ORDERABLES Final R esult Performing Organization Address City/[facility] Co de Phone Number [facility] [address] [place] [address] * (ABNORMAL) Basic metabolic panel (04/19/2019 6:14 PM CDT) [facility] Sodium 138 135 - 145 mmol/L [facility] Potassium, pl 2.9(L) 3.3 - 4.9 mmol/L [facility] Chloride 102 97 - 110 mmol/L [facility] CO2 28 22 - 32 mmol/L [facility] Anion gap 8 2 - 15 mmol/L [facility] BUN 4(L) 8 - 25 mg/dL [facility] Creatinine 0.56(L) 0.60 - 1.10 mg/dL [facility] Glucose 106 70 - 199 mg/dL [facility] [...] 2017. Calcium 9.4 8.5 - 10.3 mg/dL [facility] Blood specimen (specimen) 04/19/2019 6:14 PM CDT 04/19/2019 6:49 PM CDT Greyson Reeves MD LAB BLOOD ORDERABLES Final R esult Performing Organization Address [facility]/State/ZIP Co de Phone Number JASON BLACK [address] [place] [address] * Calcium, ionized (04/19/2019 6:14 PM CDT) Calcium, Ionized 5.04 4.50 - 5.10 mg/dL [facility] Blood specimen (specimen) 04/19/2019 6:14 PM CDT 04/19/2019 6:49 PM CDT us Greyson Reeves MD LAB BLOOD ORDERABLES Final R esult [facility] [address] [place] [address] * (ABNORMAL) Basic metabolic panel (04/19/2019 6:37 AM CDT) [facility] Sodium 143 135 - 145 mmol/L [facility] Potassium, pl 3.4 3.3 - 4.9 mmol/L [facility] Chloride 106 97 - 110 mmol/L [facility] CO2 28 22 - 32 mmol/L [facility] Anion gap 9 2 - 15 mmol/L [facility] BUN 2(L) 8 - 25 mg/dL [facility] Creatinine 0.56(L) 0.60 - 1.10 mg/dL [facility] Glucose 113 70 - 199 mg/dL [facility] [...] 2017. Calcium 9.4 8.5 - 10.3 mg/dL [facility] Blood specimen (specimen) 04/19/2019 6:37 AM CDT 04/19/2019 7:44 AM CDT Greyson Reeves MD LAB BLOOD ORDERABLES Final R esult Performing Organization Address [facility] de Phone Number [address] [address] * Calcium, ionized (04/19/2019 6:37 AM CDT) Calcium, Ionized 4.88 4.50 - 5.10 mg/dL [facility] Blood specimen (specimen) 04/19/2019 6:37 AM CDT 04/19/2019 7:44 AM CDT Greyson Reeves MD LAB BLOOD ORDERABLES Final R esult Performing Organization Address [facility] de Phone Number [address] [address] * (ABNORMAL) Phosphorus (04/18/2019 9:43 PM CDT) Phosphorus, pl 1.9(L) 2.3 - 4.5 mg/dL [facility] Blood specimen (specimen) 04/18/2019 9:43 PM CDT 04/18/2019 10:44 PM CDT Greyson Reeves MD LAB BLOOD ORDERABLES Final R esult Performing Organization Address [facility] de Phone Number [address] [address] * Magnesium (04/18/2019 9:43 PM CDT) Magnesium 1.6 1.4 - 2.5 mg/dL [facility] Blood specimen (specimen) 04/18/2019 9:43 PM CDT 04/18/2019 10:44 PM CDT Greyson Reeves MD LAB BLOOD ORDERABLES Final R esult Performing Organization Address [facility] Co de Phone Number [facility] [address] [place] [address] * (ABNORMAL) CBC without differential (04/18/2019 9:43 PM CDT) [facility] WBC 5.2 3.8 - 9.9 K/cumm [facility] Hgb 9.4(L) 11.9 - 15.5 g/dL [facility] Hct 28.5(L) 35.6 - 45.5 % [facility] Plt 121(L) 150 - 400 K/cumm [facility] MPV 11.1 9.1 - 12.3 fL [facility] RBC 3.25(L) 3.90 - 5.20 M/cumm [facility] MCV 87.7 81.3 - 96.4 fL [facility] MCH 28.9 27.1 - 33.3 pg [facility] MCHC 33.0 32.3 - 35.7 g/dL [facility] RDW CV 15.5(H) 11.1 - 14.9 % [facility] RDW SD 49.4(H) 35.7 - 48.1 fL [facility] NRBC abs 0.00 0.00 - 0.01 K/cumm [facility] Blood specimen (specimen) 04/18/2019 9:43 PM CDT 04/18/2019 10:44 PM CDT us Greyson Reeves MD LAB BLOOD ORDERABLES Final R esult JAS[facility] BL[facility] [address] [place] [address] * (ABNORMAL) Basic metabolic panel (04/18/2019 6:33 PM CDT) [facility] Sodium 141 135 - 145 mmol/L [facility] Potassium, pl 2.8(L) 3.3 - 4.9 mmol/L [facility] Chloride 107 97 - 110 mmol/L [facility] CO2 26 22 - 32 mmol/L [facility] Anion gap 8 2 - 15 mmol/L [facility] BUN 3(L) 8 - 25 mg/dL [facility] Creatinine 0.53(L) 0.60 - 1.10 mg/dL [facility] Glucose 125 70 - 199 mg/dL [facility] [...] 2017. Calcium 8.4(L) 8.5 - 10.3 mg/dL [facility] Blood specimen (specimen) 04/18/2019 6:33 PM CDT 04/18/2019 7:25 PM CDT Greyson Reeves MD LAB BLOOD ORDERABLES Final R esult Performing Organization Address [facility] Co de Phone Number [address] [address] * Calcium, ionized (04/18/2019 6:33 PM CDT) Pathologist [facility] Calcium, Ionized 4.83 4.50 - 5.10 mg/dL [facility] Blood specimen (specimen) 04/18/2019 6:33 PM CDT 04/18/2019 7:25 PM CDT Greyson Reeves MD LAB BLOOD ORDERABLES Final R esult Performing Organization Address [facility] Co de Phone Number [address] [address] * (ABNORMAL) Basic metabolic panel (04/18/2019 6:42 AM CDT) Pathologist [facility] Sodium 142 135 - 145 mmol/L [facility] Potassium, pl 3.1(L) 3.3 - 4.9 mmol/L [facility] Chloride 110 97 - 110 mmol/L [facility] CO2 24 22 - 32 mmol/L [facility] Anion gap 8 2 - 15 mmol/L [facility] BUN 3(L) 8 - 25 mg/dL [facility] Creatinine 0.54(L) 0.60 - 1.10 mg/dL [facility] Glucose 119 70 - 199 mg/dL [facility] [...] 2017. Calcium 8.5 8.5 - 10.3 mg/dL [facility] Blood specimen (specimen) 04/18/2019 6:42 AM CDT 04/18/2019 8:08 AM CDT Greyson Reeves MD LAB BLOOD ORDERABLES Final R esult Performing Organization Address [facility] de Phone Number [address] [address] * Calcium, ionized (04/18/2019 6:42 AM CDT) [facility] Calcium, Ionized 4.90 4.50 - 5.10 mg/dL [facility] Blood specimen (specimen) 04/18/2019 6:42 AM CDT 04/18/2019 8:08 AM CDT Greyson Reeves MD LAB BLOOD ORDERABLES Final R esult Performing Organization Address [facility] de Phone Number [address] [address] * (ABNORMAL) Differential, auto (04/17/2019 10:47 PM CDT) Neutrophil abs 3.3 1.7 - 6.5 K/cumm [facility] Imm gran abs 0.1 0.0 - 0.1 K/cumm [facility] Lymphocyte abs 0.2(L) 0.8 - 3.3 K/cumm [facility] Monocyte abs 0.5 0.2 - 0.8 K/cumm [facility] Eosinophil abs 0.1 0.0 - 0.5 K/cumm [facility] Basophil abs 0.0 0.0 - 0.1 K/cumm [facility] Neutrophil pct 78.1 % [facility] Comment: Interpretive Data Percent cell count reference ranges are not reported, since discordance with absolute values may lead to misinterpretation of CBC data. Current Interpretive Data was last revised on 2017. Imm gran pct 2.4 % [facility] Comment: Interpretive Data Percent cell count reference ranges are not reported, since discordance with absolute values may lead to misinterpretation of CBC data. Current Interpretive Data was last revised on 2017. Lymphocyte pct 4.8 % [facility] Comment: Interpretive Data Percent cell count reference ranges are not reported, since discordance with absolute values may lead to misinterpretation of CBC data. Current Interpretive Data was last revised on 2017. Monocyte pct 11.8 % [facility] Comment: Interpretive Data Percent cell count reference ranges are not reported, since discordance with absolute values may lead to misinterpretation of CBC data. Current Interpretive Data was last revised on 2017. Eosinophil pct 2.4 % [facility] Comment: Interpretive Data Percent cell count reference ranges are not reported, since discordance with absolute values may lead to misinterpretation of CBC data. Current Interpretive Data was last revised on 2017. Basophil pct 0.5 % [facility] Comment: Interpretive Data Percent cell count reference ranges are not reported, since discordance with absolute values may lead to misinterpretation of CBC data. Current Interpretive Data was last revised on 2017. Blood specimen (specimen) 04/17/2019 10:47 PM CDT 04/17/2019 11:52 PM CDT Katarina Hall [employer] DESIGN[employer] LAB BLOOD ORDERABLES Final Res ult Performing Organization Address [facility] Co de Phone Number [address] [address] * (ABNORMAL) Phosphorus (04/17/2019 10:47 PM CDT) Pathologist [facility] Phosphorus, pl 1.4(L) 2.3 - 4.5 mg/dL [facility] Blood specimen (specimen) 04/17/2019 10:47 PM CDT 04/17/2019 11:52 PM CDT Greyson Reeves MD LAB BLOOD ORDERABLES Final R esult Performing Organization Address [facility] Co de Phone Number [address] [address] * Magnesium (04/17/2019 10:47 PM CDT) [facility] Magnesium 2.0 1.4 - 2.5 mg/dL [facility] Blood specimen (specimen) 04/17/2019 10:47 PM CDT 04/17/2019 11:52 PM CDT Greyson Reeves MD LAB BLOOD ORDERABLES Final R esult Performing Organization Address [facility] Co de Phone Number [address] [address] * (ABNORMAL) CBC with auto differential (04/17/2019 10:47 PM CDT) [facility] WBC 4.2 3.8 - 9.9 K/cumm [facility] Hgb 8.9(L) 11.9 - 15.5 g/dL [facility] Hct 27.3(L) 35.6 - 45.5 % [facility] Plt 95(L) 150 - 400 K/cumm [facility] MPV 10.6 9.1 - 12.3 fL [facility] RBC 3.06(L) 3.90 - 5.20 M/cumm [facility] MCV 89.2 81.3 - 96.4 fL [facility] Comment:MCV delta due to erin arent blood transfusion. MCH 29.1 27.1 - 33.3 pg [facility] MCHC 32.6 32.3 - 35.7 g/dL [facility] RDW CV 15.6(H) 11.1 - 14.9 % [facility] RDW SD 50.8(H) 35.7 - 48.1 fL [facility] NRBC abs 0.00 0.00 - 0.01 K/cumm [facility] Blood specimen (specimen) 04/17/2019 10:47 PM CDT 04/17/2019 11:52 PM CDT us Katarina Hall [employer] DES[employer] LAB BLOOD ORDERABLES Final Res ult Performing Organization Address [facility] Co de Phone Number [address] [address] * Potassium, whole blood (04/17/2019 8:06 PM CDT) Potassium, bld 3.5 3.3 - 4.9 mmol/L [facility] Blood specimen (specimen) 04/17/2019 8:06 PM CDT 04/17/2019 8:36 PM CDT us Greyson Reeves MD LAB BLOOD ORDERABLES Final R esult Performing Organization Address [facility] Co de Phone Number [facility] [address] [place] [address] * Critical Result Callback Chemistry (04/17/2019 6:51 PM CDT) Date Notified [id number] [facility] Time Notified 1946 [facility] TestName Potassium Plas [facility] Called/Read Back gaby cochran [facility] Credentials RN [facility] Called By cb [facility] Blood specimen (specimen) 04/17/2019 6:51 PM CDT 04/17/2019 7:09 PM CDT Greyson Reeves MD LAB BLOOD ORDERABLES Final R esult Performing Organization Address City/[facility]/ZIP Co de Phone Number JASON BLACK [address] [place] [address] * (ABNORMAL) Basic metabolic panel (04/17/2019 6:51 PM CDT) Sodium 139 135 - 145 mmol/L [facility] Potassium, pl 8.8(C) 3.3 - 4.9 mmol/L [facility] Chloride 112(H) 97 - 110 mmol/L [facility] CO2 19(L) 22 - 32 mmol/L [facility] Anion gap 8 2 - 15 mmol/L [facility] BUN 5(L) 8 - 25 mg/dL [facility] Creatinine 0.50(L) 0.60 - 1.10 mg/dL [facility] Glucose 274(H) 70 - 199 mg/dL [facility] [...] 2017. Calcium 6.8(L) 8.5 - 10.3 mg/dL [facility] Blood specimen (specimen) 04/17/2019 6:51 PM CDT 04/17/2019 7:09 PM CDT us Greyson Reeves MD LAB BLOOD ORDERABLES Final R esult Performing Organization Address [facility]/ZIP Co de Phone Number [place] [address] * (ABNORMAL) Calcium, ionized (04/17/2019 6:51 PM CDT) Calcium, Ionized 3.87(L) 4.50 - 5.10 mg/dL [facility] Blood specimen (specimen) 04/17/2019 6:51 PM CDT 04/17/2019 7:[address] [facility] Greyson Reeves MD LAB BLOOD ORDERABLES Final R esult Performing Organization Address [facility] Co de Phone Number [address] [address] * Transfuse RBC (04/17/2019 4:46 PM CDT) Blood specimen (specimen) Result [facility] Katarina Hall [employer] DESIGNER BLOOD TRANSFUSION ORDERABLES F inal Result Performing Organization Address [facility] de Phone Number [address] [address] * Transfuse RBC: 1 Units (04/17/2019 4:46 PM CDT) Blood specimen (specimen) Result [facility] Katarina Hall [employer] DESIGNER BLOOD TRANSFUSION ORDERABLES F inal Result * Calcium, ionized (04/17/2019 1:03 PM CDT) Calcium, Ionized 4.54 4.50 - 5.10 mg/dL [facility] Blood specimen (specimen) 04/17/2019 1:03 PM CDT 04/17/2019 1:58 PM CDT Greyson Reeves MD LAB BLOOD ORDERABLES Final R esult Performing Organization Address [facility] Co de Phone Number [address] [address] * (ABNORMAL) Basic metabolic panel (04/17/2019 1:03 PM CDT) Sodium 138 135 - 145 mmol/L [facility] Potassium, pl 3.3 3.3 - 4.9 mmol/L [facility] Chloride 110 97 - 110 mmol/L [facility] CO2 19(L) 22 - 32 mmol/L [facility] Anion gap 9 2 - 15 mmol/L [facility] BUN 5(L) 8 - 25 mg/dL [facility] Creatinine 0.52(L) 0.60 - 1.10 mg/dL [facility] Glucose 263(H) 70 - 199 mg/dL [facility] [...] 2017. Calcium 7.4(L) 8.5 - 10.3 mg/dL [facility] Blood specimen (specimen) 04/17/2019 1:03 PM CDT 04/17/2019 1:58 PM CDT Greyson Reeves MD LAB BLOOD ORDERABLES Final R esult Performing Organization Address [facility]/ZIP Co de Phone Number [address] [address] * Calcium, ionized, whole blood (04/17/2019 9:43 AM CDT) Ca, ionized, bld 4.73 4.50 - 5.10 mg/dL [facility] Blood specimen (specimen) 04/17/2019 9:43 AM CDT 04/17/2019 10:43 AM CDT Greyson Reeves MD LAB BLOOD ORDERABLES Final R esult Performing Organization Address City/[facility] Co de Phone Number [facility] [address] [place] [address] * Potassium, whole blood (04/17/2019 9:43 AM CDT) Potassium, bld 3.5 3.3 - 4.9 mmol/L [facility] Blood specimen (specimen) 04/17/2019 9:43 AM CDT 04/17/2019 10:43 AM CDT us Greyson Reeves MD LAB BLOOD ORDERABLES Final R esult [facility] [address] [place] [address] * (ABNORMAL) Basic metabolic panel (04/17/2019 9:43 AM CDT) [facility] Sodium 143 135 - 145 mmol/L [facility] Potassium, pl 3.5 3.3 - 4.9 mmol/L [facility] Chloride 114(H) 97 - 110 mmol/L [facility] CO2 21(L) 22 - 32 mmol/L [facility] Anion gap 8 2 - 15 mmol/L [facility] BUN 6(L) 8 - 25 mg/dL [facility] Creatinine 0.58(L) 0.60 - 1.10 mg/dL [facility] Glucose 103 70 - 199 mg/dL [facility] [...] 2017. Calcium 7.7(L) 8.5 - 10.3 mg/dL [facility] Blood specimen (specimen) 04/17/2019 9:43 AM CDT 04/17/2019 10:45 AM CDT Greyson Reeves MD LAB BLOOD ORDERABLES Final R esult Performing Organization Address [facility] Co de Phone Number [address] [address] * Type and screen (04/17/2019 9:43 AM CDT) Yolande, indirect Negative [facility] ABO Rh AB Positive [facility] Blood specimen (specimen) 04/17/2019 9:43 AM CDT 04/17/2019 10:47 AM CDT Narrative [facility] - 04/17/2019 11:44 AM CDT Has the patient had Daratumumab (Darzalex) in the past 6 months?->Unknown Katarina Hall NP LAB BLOOD BANK TEST ORDERABLES Final Result Performing Organization Address [facility] de Phone Number [address] [address] * Prepare RBC: 2 Units (04/17/2019 7:42 AM CDT) Product code [id number] [facility] Unit Number [id number] [facility] Product Blood Type BPOS [facility] Dispense Status PRESUMED TRANSFUSED [facility] Product code [id number] [facility] Unit Number [id number] [facility] Product Blood Type BPOS [facility] Dispense Status RETURNED [facility] Blood specimen (specimen) 04/17/2019 7:42 AM CDT 04/17/2019 7:43 AM CDT Narrative [facility] - 04/18/2019 7:34 AM CDT Are special requirements needed? (all products are leukoreduced)->No Date required:-[id number] LRRBC # of [id number] Reasons:-Hgb <7 g/dL} Katarina Hall NP BLOOD BANK PRODUCT ORDERABLES Final Result Performing Organization Address [facility]/ZIP Co de Phone Number [facility] [address] [place] [address] * ECG 12 lead (04/17/2019 7:30 AM CDT) Ventricular Rate EKG/Min 84 BPM [facility] Atrial Rate 84 BPM [facility] NC-Interval (MSEC) 128 ms [facility] QRS-Interval (MSEC) 92 ms [facility] QT-Interval (MSEC) 384 ms [facility] QTc 453 ms [facility] P [place] 22 degrees [facility] R [place] 6 degrees [facility] T [place] 20 degrees [facility] Diagnosis Normal sinus rhythm Normal ECG When compared with ECG of 14-APR-2019 04:21, Vent. rate has decreased BY ??46 BPM Confirmed by PIPER WILSON M.D ([id number]) on 04/17/2019 11:40:05 AM [facility] 04/17/2019 7:30 AM CDT 04/17/2019 11:40 AM CDT us Greyson Reeves MD ECG ORDERABLES Final Result Performing Organization Address [facility] Co de Phone Number [facility] * Critical Result Callback Chemistry (04/17/2019 6:18 AM CDT) Date Notified [id number] [facility] Time Notified 08 [facility] TestName Potassium Plas [facility] Called/Read Back Penelope [facility] Credentials [place] [facility] Called By ra [facility] Blood specimen (specimen) 04/17/2019 6:18 AM CDT 04/17/2019 7:22 AM CDT us Greyson Reeves MD LAB BLOOD ORDERABLES Final R esult Performing Organization Address [facility] Co de Phone Number [facility] [address] [place] [address] * (ABNORMAL) Basic metabolic panel (04/17/2019 6:18 AM CDT) Sodium 145 135 - 145 mmol/L [facility] Potassium, pl 8.1(C) 3.3 - 4.9 mmol/L [facility] Chloride 124(H) 97 - 110 mmol/L [facility] CO2 19(L) 22 - 32 mmol/L [facility] Anion gap 2 2 - 15 mmol/L [facility] BUN 6(L) 8 - 25 mg/dL [facility] Creatinine 0.53(L) 0.60 - 1.10 mg/dL [facility] Glucose 237(H) 70 - 199 mg/dL [facility] [...] 2017. Calcium 6.7(L) 8.5 - 10.3 mg/dL [facility] Blood specimen (specimen) 04/17/2019 6:18 AM CDT 04/17/2019 7:22 AM CDT Greyson Reeves MD LAB BLOOD ORDERABLES Final R esult [facility] [address] [place] [address] * (ABNORMAL) Calcium, ionized (04/17/2019 6:18 AM CDT) Calcium, Ionized 4.19(L) 4.50 - 5.10 mg/dL [facility] Blood specimen (specimen) 04/17/2019 6:18 AM CDT 04/17/2019 7:22 AM CDT Greyson Reeves MD LAB BLOOD ORDERABLES Final R esult Performing Organization Address [facility] Co de Phone Number [address] [address] * (ABNORMAL) Phosphorus (04/17/2019 5:12 AM CDT) Phosphorus, pl 1.3(L) 2.3 - 4.5 mg/dL [facility] Blood specimen (specimen) 04/17/2019 5:12 AM CDT 04/17/2019 5:41 AM CDT Greyson Reeves MD LAB BLOOD ORDERABLES Final R esult Performing Organization Address [facility] de Phone Number [address] [address] * Magnesium (04/17/2019 5:12 AM CDT) Magnesium 1.8 1.4 - 2.5 mg/dL [facility] Blood specimen (specimen) 04/17/2019 5:12 AM CDT 04/17/2019 5:41 AM CDT Greyson Reeves MD LAB BLOOD ORDERABLES Final R esult Performing Organization Address [facility] de Phone Number [address] [address] * Calcium, ionized (04/17/2019 5:12 AM CDT) Calcium, Ionized 4.69 4.50 - 5.10 mg/dL [facility] Blood specimen (specimen) 04/17/2019 5:12 AM CDT 04/17/2019 5:41 AM CDT Greyson Reeves MD LAB BLOOD ORDERABLES Final R esult Performing Organization Address [facility] Co de Phone Number [address] [address] * (ABNORMAL) Basic metabolic panel (04/17/2019 5:12 AM CDT) Pathologist [facility] Sodium 143 135 - 145 mmol/L [facility] Potassium, pl 3.5 3.3 - 4.9 mmol/L [facility] Chloride 114(H) 97 - 110 mmol/L [facility] CO2 21(L) 22 - 32 mmol/L [facility] Anion gap 8 2 - 15 mmol/L [facility] BUN 7(L) 8 - 25 mg/dL [facility] Creatinine 0.59(L) 0.60 - 1.10 mg/dL [facility] Glucose 112 70 - 199 mg/dL [facility] [...] 2017. Calcium 7.6(L) 8.5 - 10.3 mg/dL [facility] Blood specimen (specimen) 04/17/2019 5:12 AM CDT 04/17/2019 5:41 AM CDT us Greyson Reeves MD LAB BLOOD ORDERABLES Final R esult [facility] [address] [place] [address] * (ABNORMAL) Differential, auto (04/16/2019 10:11 PM CDT) Pathologist [facility] Neutrophil abs 3.4 1.7 - 6.5 K/cumm [facility] Imm gran abs 0.0 0.0 - 0.1 K/cumm [facility] Lymphocyte abs 0.2(L) 0.8 - 3.3 K/cumm [facility] Monocyte abs 0.4 0.2 - 0.8 K/cumm [facility] Eosinophil abs 0.1 0.0 - 0.5 K/cumm [facility] Basophil abs 0.0 0.0 - 0.1 K/cumm [facility] Neutrophil pct 81.3 % [facility] Comment: Interpretive Data Percent cell count reference ranges are not reported, since discordance with absolute values may lead to misinterpretation of CBC data. Current Interpretive Data was last revised on 2017. Imm gran pct 1.2 % [facility] Comment: Interpretive Data Percent cell count reference ranges are not reported, since discordance with absolute values may lead to misinterpretation of CBC data. Current Interpretive Data was last revised on 2017. Lymphocyte pct 5.0 % [facility] Comment: Interpretive Data Percent cell count reference ranges are not reported, since discordance with absolute values may lead to misinterpretation of CBC data. Current Interpretive Data was last revised on 2017. Monocyte pct 10.3 % [facility] Comment: Interpretive Data Percent cell count reference ranges are not reported, since discordance with absolute values may lead to misinterpretation of CBC data. Current Interpretive Data was last revised on 2017. Eosinophil pct 1.7 % [facility] Comment: Interpretive Data Percent cell count reference ranges are not reported, since discordance with absolute values may lead to misinterpretation of CBC data. Current Interpretive Data was last revised on 2017. Basophil pct 0.5 % [facility] Comment: Interpretive Data Percent cell count reference ranges are not reported, since discordance with absolute values may lead to misinterpretation of CBC data. Current Interpretive Data was last revised on 2017. Blood specimen (specimen) 04/16/2019 10:11 PM CDT 04/16/2019 10:43 PM CDT us Katarina Hall [employer] DES[employer] LAB BLOOD ORDERABLES Final Res ult [facility] [address] [place] [address] * (ABNORMAL) Basic metabolic panel (04/16/2019 10:11 PM CDT) [facility] Sodium 143 135 - 145 mmol/L [facility] Potassium, pl 3.0(L) 3.3 - 4.9 mmol/L [facility] Chloride 115(H) 97 - 110 mmol/L [facility] CO2 18(L) 22 - 32 mmol/L [facility] Anion gap 10 2 - 15 mmol/L [facility] BUN 9 8 - 25 mg/dL [facility] Creatinine 0.61 0.60 - 1.10 mg/dL [facility] Glucose 73 70 - 199 mg/dL [facility] [...] 2017. Calcium 7.1(L) 8.5 - 10.3 mg/dL [facility] Blood specimen (specimen) 04/16/2019 10:11 PM CDT 04/16/2019 10:43 PM CDT us Greyson Reeves MD LAB BLOOD ORDERABLES Final R esult [facility] [address] [place] [address] * (ABNORMAL) CBC with auto differential (04/16/2019 10:11 PM CDT) [facility] WBC 4.2 3.8 - 9.9 K/cumm [facility] Hgb 6.9(L) 11.9 - 15.5 g/dL [facility] Hct 21.0(L) 35.6 - 45.5 % [facility] Plt 82(L) 150 - 400 K/cumm [facility] MPV 11.2 9.1 - 12.3 fL [facility] RBC 2.23(L) 3.90 - 5.20 M/cumm [facility] MCV 94.2 81.3 - 96.4 fL [facility] MCH 30.9 27.1 - 33.3 pg [facility] MCHC 32.9 32.3 - 35.7 g/dL [facility] RDW CV 13.9 11.1 - 14.9 % [facility] RDW SD 48.2(H) 35.7 - 48.1 fL [facility] NRBC abs 0.00 0.00 - 0.01 K/cumm [facility] Blood specimen (specimen) 04/16/2019 10:11 PM CDT 04/16/2019 10:43 PM CDT Katarina Hall [employer] DESIGN[employer] LAB BLOOD ORDERABLES Final Res ult Performing Organization Address [facility] de Phone Number [address] [address] * Calcium, ionized (04/16/2019 6:13 PM CDT) [facility] Calcium, Ionized 4.53 4.50 - 5.10 mg/dL [facility] Blood specimen (specimen) 04/16/2019 6:13 PM CDT 04/16/2019 7:05 PM CDT Greyson Reeves MD LAB BLOOD ORDERABLES Final R esult Performing Organization Address [facility] de Phone Number [address] [address] * (ABNORMAL) Basic metabolic panel (04/16/2019 6:13 PM CDT) [facility] Sodium 142 135 - 145 mmol/L [facility] Potassium, pl 3.2(L) 3.3 - 4.9 mmol/L [facility] Chloride 117(H) 97 - 110 mmol/L [facility] CO2 19(L) 22 - 32 mmol/L [facility] Anion gap 6 2 - 15 mmol/L [facility] BUN 9 8 - 25 mg/dL [facility] Creatinine 0.60 0.60 - 1.10 mg/dL [facility] Glucose 70 70 - 199 mg/dL [facility] [...] 2017. Calcium 7.3(L) 8.5 - 10.3 mg/dL [facility] Blood specimen (specimen) 04/16/2019 6:13 PM CDT 04/16/2019 7:05 PM CDT Greyson Reeves MD LAB BLOOD ORDERABLES Final R esult Performing Organization Address [facility] Co de Phone Number [address] [address] * Calcium, ionized (04/16/2019 12:08 PM CDT) Pathologist [facility] Calcium, Ionized 4.81 4.50 - 5.10 mg/dL [facility] Blood specimen (specimen) 04/16/2019 12:08 PM CDT 04/16/2019 12:52 PM CDT Greyson Reeves MD LAB BLOOD ORDERABLES Final R esult Performing Organization Address [facility] Co de Phone Number [address] [address] * (ABNORMAL) Basic metabolic panel (04/16/2019 12:08 PM CDT) Pathologist [facility] Sodium 143 135 - 145 mmol/L [facility] Potassium, pl 3.4 3.3 - 4.9 mmol/L [facility] Chloride 114(H) 97 - 110 mmol/L [facility] CO2 20(L) 22 - 32 mmol/L [facility] Anion gap 9 2 - 15 mmol/L [facility] BUN 10 8 - 25 mg/dL [facility] Creatinine 0.71 0.60 - 1.10 mg/dL [facility] Glucose 86 70 - 199 mg/dL [facility] [...] 2017. Calcium 8.2(L) 8.5 - 10.3 mg/dL [facility] Blood specimen (specimen) 04/16/2019 12:08 PM CDT 04/16/2019 12:52 PM CDT Greyson Reeves MD LAB BLOOD ORDERABLES Final R esult Performing Organization Address [facility] de Phone Number [address] [address] * Calcium, ionized (04/16/2019 6:45 AM CDT) Pathologist [facility] Calcium, Ionized 4.62 4.50 - 5.10 mg/dL [facility] Blood specimen (specimen) 04/16/2019 6:45 AM CDT 04/16/2019 7:47 AM CDT Greyson Reeves MD LAB BLOOD ORDERABLES Final R esult Performing Organization Address [facility] de Phone Number [address] [address] * (ABNORMAL) Basic metabolic panel (04/16/2019 6:45 AM CDT) Sodium 140 135 - 145 mmol/L [facility] Potassium, pl 3.5 3.3 - 4.9 mmol/L [facility] Chloride 113(H) 97 - 110 mmol/L [facility] CO2 21(L) 22 - 32 mmol/L [facility] Anion gap 6 2 - 15 mmol/L [facility] BUN 12 8 - 25 mg/dL [facility] Creatinine 0.68 0.60 - 1.10 mg/dL [facility] Glucose 81 70 - 199 mg/dL [facility] [...] 2017. Calcium 8.2(L) 8.5 - 10.3 mg/dL [facility] Blood specimen (specimen) 04/16/2019 6:45 AM CDT 04/16/2019 7:47 AM CDT us Greyson Reeves MD LAB BLOOD ORDERABLES Final R esult [facility] [address] [place] [address] * (ABNORMAL) Basic metabolic panel (04/15/2019 9:26 PM CDT) Sodium 141 135 - 145 mmol/L [facility] Potassium, pl 3.8 3.3 - 4.9 mmol/L [facility] Chloride 114(H) 97 - 110 mmol/L [facility] CO2 22 22 - 32 mmol/L [facility] Anion gap 5 2 - 15 mmol/L [facility] BUN 14 8 - 25 mg/dL [facility] Creatinine 0.74 0.60 - 1.10 mg/dL [facility] Glucose 90 70 - 199 mg/dL [facility] [...] 2017. Calcium 8.5 8.5 - 10.3 mg/dL [facility] Blood specimen (specimen) 04/15/2019 9:26 PM CDT 04/15/2019 10:52 PM CDT Greyson Reeves MD LAB BLOOD ORDERABLES Final R esult Performing Organization Address [facility] Co de Phone Number [address] [address] * Phosphorus (04/15/2019 9:26 PM CDT) Phosphorus, pl 2.3 2.3 - 4.5 mg/dL [facility] Blood specimen (specimen) 04/15/2019 9:26 PM CDT 04/15/2019 10:52 PM CDT Greyson Reeves MD LAB BLOOD ORDERABLES Final R esult Performing Organization Address [facility] Co de Phone Number [address] [address] * Magnesium (04/15/2019 9:26 PM CDT) Magnesium 1.7 1.4 - 2.5 mg/dL [facility] Blood specimen (specimen) 04/15/2019 9:26 PM CDT 04/15/2019 10:52 PM CDT Greyson Reeves MD LAB BLOOD ORDERABLES Final R esult [facility] [address] [place] [address] * (ABNORMAL) CBC without differential (04/15/2019 9:26 PM CDT) Pathologist [facility] WBC 3.8 3.8 - 9.9 K/cumm [facility] Hgb 8.0(L) 11.9 - 15.5 g/dL [facility] Hct 23.8(L) 35.6 - 45.5 % [facility] Plt 84(L) 150 - 400 K/cumm [facility] MPV 11.0 9.1 - 12.3 fL [facility] RBC 2.53(L) 3.90 - 5.20 M/cumm [facility] MCV 94.1 81.3 - 96.4 fL [facility] MCH 31.6 27.1 - 33.3 pg [facility] MCHC 33.6 32.3 - 35.7 g/dL [facility] RDW CV 14.1 11.1 - 14.9 % [facility] RDW SD 48.1 35.7 - 48.1 fL [facility] NRBC abs 0.00 0.00 - 0.01 K/cumm [facility] Blood specimen (specimen) 04/15/2019 9:26 PM CDT 04/15/2019 10:32 PM CDT Greyson Reeves MD LAB BLOOD ORDERABLES Final R esult [facility] [address] [place] [address] * Calcium, ionized (04/15/2019 9:26 PM CDT) Calcium, Ionized 4.79 4.50 - 5.10 mg/dL [facility] Blood specimen (specimen) 04/15/2019 9:26 PM CDT 04/15/2019 10:32 PM CDT Greyson Reeves MD LAB BLOOD ORDERABLES Final R esult Performing Organization Address [facility] de Phone Number [address] [address] * Calcium, ionized (04/15/2019 8:14 PM CDT) Calcium, Ionized 4.71 4.50 - 5.10 mg/dL [facility] Blood specimen (specimen) 04/15/2019 8:14 PM CDT 04/15/2019 9:12 PM CDT Greyson Reeves MD LAB BLOOD ORDERABLES Final R esult Performing Organization Address [facility] de Phone Number [address] [address] * (ABNORMAL) Calcium, ionized (04/15/2019 1:45 PM CDT) Calcium, Ionized 5.32(H) 4.50 - 5.10 mg/dL [facility] Blood specimen (specimen) 04/15/2019 1:45 PM CDT 04/15/2019 2:28 PM CDT Greyson Reeves MD LAB BLOOD ORDERABLES Final R [facility] Performing Organization Address [facility] de Phone Number [address] [address] * (ABNORMAL) Basic metabolic panel (04/15/2019 5:20 AM CDT) Sodium 140 135 - 145 mmol/L [facility] Potassium, pl 3.8 3.3 - 4.9 mmol/L [facility] Chloride 110 97 - 110 mmol/L [facility] CO2 23 22 - 32 mmol/L [facility] Anion gap 7 2 - 15 mmol/L [facility] BUN 17 8 - 25 mg/dL [facility] Creatinine 0.89 0.60 - 1.10 mg/dL [facility] Glucose 112 70 - 199 mg/dL [facility] [...] 2017. Calcium 8.0(L) 8.5 - 10.3 mg/dL [facility] Blood specimen (specimen) 04/15/2019 5:20 AM CDT 04/15/2019 5:43 AM CDT Neto Moss MD LAB BLOOD ADRIEL RIVAS Final Result [facility] [address] [place] [address] * (ABNORMAL) CBC without differential (04/15/2019 5:16 AM CDT) WBC 4.2 3.8 - 9.9 K/cumm [facility] Hgb 8.5(L) 11.9 - 15.5 g/dL [facility] Hct 26.1(L) 35.6 - 45.5 % [facility] Plt 88(L) 150 - 400 K/cumm [facility] MPV 10.7 9.1 - 12.3 fL [facility] RBC 2.74(L) 3.90 - 5.20 M/cumm [facility] MCV 95.3 81.3 - 96.4 fL [facility] MCH 31.0 27.1 - 33.3 pg [facility] MCHC 32.6 32.3 - 35.7 g/dL [facility] RDW CV 14.6 11.1 - 14.9 % [facility] RDW SD 49.8(H) 35.7 - 48.1 fL [facility] NRBC abs 0.00 0.00 - 0.01 K/cumm [facility] Blood specimen (specimen) 04/15/2019 5:16 AM CDT 04/15/2019 5:43 AM CDT Greyson Reeves MD LAB BLOOD ORDERABLES Final R esult Performing Organization Address [facility] Co de Phone Number [address] [address] * Calcium, ionized (04/15/2019 5:11 AM CDT) Calcium, Ionized 4.59 4.50 - 5.10 mg/dL [facility] Blood specimen (specimen) 04/15/2019 5:11 AM CDT 04/15/2019 5:43 AM CDT Greyson Reeves MD LAB BLOOD ORDERABLES Final R esult Performing Organization Address [facility] de Phone Number [address] [address] * XR Abdomen Ap 1 Vw (04/15/2019 [...] CDT) Sodium 139 135 - 145 mmol/L [facility] Potassium, pl 3.8 3.3 - 4.9 mmol/L [facility] Chloride 110 97 - 110 mmol/L [facility] CO2 22 22 - 32 mmol/L [facility] Anion gap 7 2 - 15 mmol/L [facility] BUN 18 8 - 25 mg/dL [facility] Creatinine 1.02 0.60 - 1.10 mg/dL [facility] Glucose 121 70 - 199 mg/dL [facility] [...] 2017. Calcium 7.0(L) 8.5 - 10.3 mg/dL [facility] Blood specimen (specimen) 04/14/2019 11:18 PM CDT 04/14/2019 11:37 PM CDT Greyson Reeves MD LAB BLOOD ORDERABLES Final R esult Performing Organization Address [facility] Co de Phone Number [address] [address] * (ABNORMAL) Calcium, ionized (04/14/2019 11:18 PM CDT) Calcium, Ionized 3.96(L) 4.50 - 5.10 mg/dL [facility] Blood specimen (specimen) 04/14/2019 11:18 PM CDT 04/14/2019 11:37 PM CDT us Greyson Reeves MD LAB BLOOD ORDERABLES Final R esult Performing Organization Address [facility] de Phone Number [address] [address] * (ABNORMAL) Vitamin D 25 hydroxy (04/14/2019 11:18 PM CDT) Vitamin D 25-OH 22(L) 30 - 80 ng/mL [facility] Blood specimen (specimen) 04/14/2019 11:18 PM CDT 04/14/2019 11:37 PM CDT Greyson Reeves MD LAB BLOOD ORDERABLES Final R esult Performing Organization Address [facility] Co de Phone Number [address] [address] * (ABNORMAL) PTH (04/14/2019 11:18 PM CDT) PTH 554(H) 15 - 65 pg/mL [facility] Blood specimen (specimen) 04/14/2019 11:18 PM CDT 04/14/2019 11:38 PM CDT Greyson Reeves MD LAB BLOOD ORDERABLES Final R esult Performing Organization Address City/[facility] Co de Phone Number [address] [address] * (ABNORMAL) Phosphorus (04/14/2019 11:18 PM CDT) [facility] Phosphorus, pl 2.2(L) 2.3 - 4.5 mg/dL [facility] Blood specimen (specimen) 04/14/2019 11:18 PM CDT 04/14/2019 11:37 PM CDT Greyson Reeves MD LAB BLOOD ORDERABLES Final R esult Performing Organization Address [facility] Co de Phone Number [address] [address] * Magnesium (04/14/2019 11:18 PM CDT) [facility] Magnesium 2.2 1.4 - 2.5 mg/dL [facility] Blood specimen (specimen) 04/14/2019 11:18 PM CDT 04/14/2019 11:37 PM CDT Greyson Reeves MD LAB BLOOD ORDERABLES Final R [facility] Performing Organization Address [facility] de Phone Number [address] [address] * (ABNORMAL) CBC without differential (04/14/2019 11:18 PM CDT) [facility] WBC 4.8 3.8 - 9.9 K/cumm [facility] Hgb 8.4(L) 11.9 - 15.5 g/dL [facility] Hct 25.3(L) 35.6 - 45.5 % [facility] Plt 93(L) 150 - 400 K/cumm [facility] MPV 10.7 9.1 - 12.3 fL [facility] RBC 2.76(L) 3.90 - 5.20 M/cumm [facility] MCV 91.7 81.3 - 96.4 fL [facility] MCH 30.4 27.1 - 33.3 pg [facility] MCHC 33.2 32.3 - 35.7 g/dL [facility] RDW CV 14.5 11.1 - 14.9 % [facility] RDW SD 48.0 35.7 - 48.1 fL [facility] NRBC abs 0.00 0.00 - 0.01 K/cumm [facility] Blood specimen (specimen) 04/14/2019 11:18 PM CDT 04/14/2019 11:37 PM CDT Greyson Reeves MD LAB BLOOD ORDERABLES Final R [facility] Performing Organization Address [facility] de Phone Number [address] [address] * aPTT (04/14/2019 5:12 PM CDT) aPTT 29.7 25.0 - 37.0 sec [facility] Comment: Interpretive Data Therapeutic heparin range:60.0 - 94.0 sec based on correlation with therapeutic heparin activity range of 0.3 -0.7 Units/mL. Current interpretive data was last revised on 2011. Blood specimen (specimen) 04/14/2019 5:12 PM CDT 04/14/2019 6:33 PM CDT Greyson Reeves MD LAB BLOOD ORDERABLES Final R [facility] Performing Organization Address [facility] de Phone Number [address] [address] * (ABNORMAL) Protime-INR (04/14/2019 5:12 PM CDT) PT 15.0(H) 8.6 - 13.0 sec [facility] INR 1.38(H) 0.80 - 1.20 [facility] Comment: Interpretive Data Inpatient therapeutic ranges* Atrial fibrillation ?2.0-3.0 INR Venous thrombo-embolism ?2.0-3.0 INR Bioprosthetic heart valve ?* Mechanical heart valve, bileaflet or tilting disk,aortic position ? 2.0-3.0 INR All other,or bileaflet or tilting disk, in mitral position ? 2.5-3.5 INR *See the pharmacy resource directory (PHRED) for an updated copy of the Tool Book at [email or web address] Current Interpretive Data was last revised 2011. Blood specimen (specimen) 04/14/2019 5:12 PM CDT 04/14/2019 6:33 PM CDT Greyson Reeves MD LAB BLOOD ORDERABLES Final R esult Performing Organization Address [facility] de Phone Number [facility] [address] [place], [place] [id number] * (ABNORMAL) Calcium, ionized (04/14/2019 4:36 PM CDT) Calcium, Ionized 3.49(L) 4.50 - 5.10 mg/dL [facility] Blood specimen (specimen) 04/14/2019 4:36 PM CDT 04/14/2019 5:23 PM CDT Greyson Reeves MD LAB BLOOD ORDERABLES Final R esult Performing Organization Address [facility] de Phone Number [facility] [address] [place] [address] * Phosphorus (04/14/2019 4:36 PM CDT) Phosphorus, pl 2.7 2.3 - 4.5 mg/dL [facility] Blood specimen (specimen) 04/14/2019 4:36 PM CDT 04/14/2019 5:23 PM CDT Greyson Reeves MD LAB BLOOD ORDERABLES Final R esult Performing Organization Address [facility] Co de Phone Number [facility] [address] [place] [address] * (ABNORMAL) CBC without differential (04/14/2019 4:36 PM CDT) WBC 5.7 3.8 - 9.9 K/cumm [facility] Hgb 10.6(L) 11.9 - 15.5 g/dL [facility] Hct 32.4(L) 35.6 - 45.5 % [facility] Plt 106(L) 150 - 400 K/cumm [facility] MPV 10.6 9.1 - 12.3 fL [facility] RBC 3.41(L) 3.90 - 5.20 M/cumm [facility] MCV 95.0 81.3 - 96.4 fL [facility] MCH 31.1 27.1 - 33.3 pg [facility] MCHC 32.7 32.3 - 35.7 g/dL [facility] RDW CV 14.5 11.1 - 14.9 % [facility] RDW SD 50.3(H) 35.7 - 48.1 fL [facility] NRBC abs 0.00 0.00 - 0.01 K/cumm [facility] Blood specimen (specimen) 04/14/2019 4:36 PM CDT 04/14/2019 5:17 PM CDT Greyson Reeves MD LAB BLOOD ORDERABLES Final R esult [facility] [address] [place] [address] * Magnesium (04/14/2019 4:36 PM CDT) Magnesium 2.3 1.4 - 2.5 mg/dL [facility] Blood specimen (specimen) 04/14/2019 4:36 PM CDT 04/14/2019 5:23 PM CDT us Greyson Reeves MD LAB BLOOD ORDERABLES Final R esult [facility] [address] [place] [address] * (ABNORMAL) Comprehensive metabolic panel (04/14/2019 4:36 PM CDT) Pathologist [facility] Sodium 140 135 - 145 mmol/L [facility] Potassium, pl 4.3 3.3 - 4.9 mmol/L [facility] Chloride 112(H) 97 - 110 mmol/L [facility] CO2 18(L) 22 - 32 mmol/L [facility] Anion gap 10 2 - 15 mmol/L [facility] BUN 17 8 - 25 mg/dL [facility] Creatinine 1.07 0.60 - 1.10 mg/dL [facility] Glucose 118 70 - 199 mg/dL [facility] [...] 2017. Calcium 6.8(L) 8.5 - 10.3 mg/dL [facility] Bilirubin, total 1.1 0.1 - 1.2 mg/dL [facility] Protein, pl 5.5(L) 6.5 - 8.5 g/dL [facility] Albumin 2.7(L) 3.5 - 5.0 g/dL [facility] Alk phos 66 40 - 130 Units/L [facility] ALT 13 7 - 45 Units/L [facility] AST 37 10 - 45 Units/L [facility] Blood specimen (specimen) 04/14/2019 4:36 PM CDT 04/14/2019 5:23 PM CDT Greyson Reeves MD LAB BLOOD ORDERABLES Final R esult Performing Organization Address [facility] de Phone Number [facility] [address] [place] [address] * Sodium, urine, random (04/14/2019 1:52 PM CDT) Sodium, ur 34 mmol/L [facility] Comment: Interpretive Data No reference range established. Current interpretive data was last revised 2018. Urine 04/14/2019 1:52 PM CDT 04/14/2019 2:41 PM CDT Greyson Reeves MD LAB URINE ORDERABLES Final R [facility] Performing Organization Address [facility] de Phone Number [facility] [address] [place] [address] * Creatinine, urine, random (04/14/2019 1:52 PM CDT) Creatinine Ur 294.6 mg/dL [facility] Comment: Interpretive Data No reference range established. Current interpretive data was last revised 2018. Urine 04/14/2019 1:52 PM CDT 04/14/2019 2:[address] [facility] Greyson Reeves MD LAB URINE ORDERABLES Final R esult Performing Organization Address [facility] de Phone Number [facility] [address] [place] [address] * Prepare RBC: 2 Units (04/14/2019 12:14 PM CDT) Product code [id number] [facility] Unit Number [id number] 3-S [facility] Product Blood Type APOS [facility] Dispense Status RETURNED [facility] Product code [id number] [facility] Unit Number [id number] 5-B [facility] Product Blood Type APOS [facility] Dispense Status RETURNED [facility] Blood specimen (specimen) 04/14/2019 12:14 PM CDT 04/14/2019 12:15 PM CDT Narrative [facility] - 04/15/2019 8:53 AM CDT Other indication->concern for post-surgical bleeding Are special requirements needed? (all products are leukoreduced)->No [facility]:-20190414 [id number] Reasons:-Other (specify)} us Greyson Reeves MD BLOOD BANK PRODUCT ORDERABLE S Final Result Performing Organization Address City/[facility]/ZIP Co de Phone Number [address] [address] * Critical Result Callback Chemistry (04/14/2019 9:17 AM CDT) Date Notified [id number] [facility] Time Notified 1120 [facility] TestName Calcium [facility] Called/Read Back Jane Johns [facility] Credentials RN [facility] Called By [facility] Blood specimen (specimen) 04/14/2019 9:17 AM CDT 04/14/2019 10:52 AM CDT us Greyson Reeves MD LAB BLOOD ORDERABLES Final R esult [facility] [address] [place] [address] * Troponin I (04/14/2019 9:17 AM CDT) Troponin I <0.03 0.00 - 0.03 ng/mL [facility] Comment: Interpretive Data: Normal plasma Troponin [...] for Troponin assay. References: 1. Clin Chem 2013;59:0795-1876 2. Journal of the [place] [employer] 2012;60:1581-98 Current Interpretive Data Last Revised Date: 2018. Blood specimen (specimen) 04/14/2019 9:17 AM CDT 04/14/2019 10:52 AM CDT Greyson Reeves MD LAB BLOOD ORDERABLES Final R esult Performing Organization Address [facility] Co de Phone Number [address] [address] * Phosphorus (04/14/2019 9:17 AM CDT) Phosphorus, pl 2.5 2.3 - 4.5 mg/dL [facility] Blood specimen (specimen) 04/14/2019 9:17 AM CDT 04/14/2019 10:52 AM CDT Greyson Reeves MD LAB BLOOD ORDERABLES Final R esult Performing Organization Address [facility] de Phone Number [address] [address] * Magnesium (04/14/2019 9:17 AM CDT) Magnesium 1.6 1.4 - 2.5 mg/dL [facility] Blood specimen (specimen) 04/14/2019 9:17 AM CDT 04/14/2019 10:52 AM CDT Greyson Reeves MD LAB BLOOD ORDERABLES Final R esult Performing Organization Address [facility] Co de Phone Number [address] [address] * (ABNORMAL) CBC without differential (04/14/2019 9:17 AM CDT) [facility] WBC 5.9 3.8 - 9.9 K/cumm [facility] Hgb 10.1(L) 11.9 - 15.5 g/dL [facility] Hct 30.2(L) 35.6 - 45.5 % [facility] Plt 119(L) 150 - 400 K/cumm [facility] MPV 11.1 9.1 - 12.3 fL [facility] RBC 3.33(L) 3.90 - 5.20 M/cumm [facility] MCV 90.7 81.3 - 96.4 fL [facility] MCH 30.3 27.1 - 33.3 pg [facility] MCHC 33.4 32.3 - 35.7 g/dL [facility] RDW CV 14.3 11.1 - 14.9 % [facility] RDW SD 47.1 35.7 - 48.1 fL [facility] NRBC abs 0.00 0.00 - 0.01 K/cumm [facility] Blood specimen (specimen) 04/14/2019 9:17 AM CDT 04/14/2019 10:53 AM CDT Greyson Reeves MD LAB BLOOD ORDERABLES Final R esult Performing Organization Address [facility] de Phone Number [address] [address] * (ABNORMAL) Calcium, ionized (04/14/2019 9:17 AM CDT) [facility] Calcium, Ionized 3.66(L) 4.50 - 5.10 mg/dL [facility] Blood specimen (specimen) 04/14/2019 9:17 AM CDT 04/14/2019 10:52 AM CDT Greyson Reeves MD LAB BLOOD ORDERABLES Final R esult Performing Organization Address [facility] Co de Phone Number [address] [address] * (ABNORMAL) Basic metabolic panel (04/14/2019 9:17 AM CDT) Sodium 142 135 - 145 mmol/L [facility] Potassium, pl 3.9 3.3 - 4.9 mmol/L [facility] Chloride 110 97 - 110 mmol/L [facility] CO2 23 22 - 32 mmol/L [facility] Anion gap 9 2 - 15 mmol/L [facility] BUN 15 8 - 25 mg/dL [facility] Creatinine 1.19(H) 0.60 - 1.10 mg/dL [facility] Glucose 133 70 - 199 mg/dL [facility] [...] 2017. Calcium 6.4(C) 8.5 - 10.3 mg/dL [facility] Blood specimen (specimen) 04/14/2019 9:17 AM CDT 04/14/2019 10:52 AM CDT us Greyson Reeves MD LAB BLOOD ORDERABLES Final R esult [facility] [address] [place] [address] * Troponin I (04/14/2019 6:50 AM CDT) Pathologist [facility] Troponin I <0.03 0.00 - 0.03 ng/mL [facility] Comment: Interpretive Data: Normal plasma Troponin [...] for Troponin assay. References: 1. Clin Chem 2013;59:9506-0484 2. Journal of the [place] [employer] 2012;60:1581-98 Current Interpretive Data Last Revised Date: 2018. Blood specimen (specimen) 04/14/2019 6:50 AM CDT 04/14/2019 7:54 AM CDT Greyson Reeves MD LAB BLOOD ORDERABLES Final R esult Performing Organization Address [facility] Co de Phone Number [address] [address] * (ABNORMAL) Calcium, ionized (04/14/2019 5:21 AM CDT) [facility] Calcium, Ionized 3.36(L) 4.50 - 5.10 mg/dL [facility] Blood specimen (specimen) 04/14/2019 5:21 AM CDT 04/14/2019 5:51 AM CDT Greyson Reeves MD LAB BLOOD ORDERABLES Final R esult Performing Organization Address [facility] Co de Phone Number [address] [address] * ECG 12 lead (04/14/2019 4:21 AM CDT) Ventricular Rate EKG/Min 130 BPM [facility] Atrial Rate 130 BPM [facility] NC-Interval (MSEC) 120 ms [facility] QRS-Interval (MSEC) 84 ms [facility] QT-Interval (MSEC) 312 ms [facility] QTc 459 ms [facility] P [place] -27 degrees [facility] R [place] 20 degrees [facility] T [place] 4 degrees [facility] Diagnosis Sinus tachycardia Poor precordial R wave progression consistent with faulty lead placement ,copd, anterior infarction, etc. Anterior infarct (cited on or before 14-APR-2019) Abnormal ECG When compared with ECG of 14-APR-2019 04:21, (unconfirmed) No significant change was found Confirmed by PIPER WILSON M.D ([id number]) on 04/14/2019 4:33:58 PM [facility] 04/14/2019 4:21 AM CDT 04/14/2019 4:33 PM CDT Greyson Reeves MD ECG ORDERABLES Final Result Performing Organization Address [facility] Co de Phone Number [facility] * (ABNORMAL) Albumin (04/14/2019 1:45 AM CDT) Albumin 3.0(L) 3.5 - 5.0 g/dL [facility] Blood specimen (specimen) 04/14/2019 1:45 AM CDT 04/14/2019 2:21 AM CDT Greyson Reeves MD LAB BLOOD ORDERABLES Final R esult Performing Organization Address [facility] de Phone Number [address] [address] * Critical Result Callback Chemistry (04/14/2019 1:45 AM CDT) Date Notified 20190414 [facility] Time Notified 309 [facility] TestName Calcium [facility] Called/Read Back Kathy Zuleta [facility] Credentials RN [facility] Called By rosa maria [facility] Blood specimen (specimen) 04/14/2019 1:45 AM CDT 04/14/2019 2:21 AM CDT Greyson Reeves MD LAB BLOOD ORDERABLES Final R esult Performing Organization Address [facility] de Phone Number [address] [address] * (ABNORMAL) Basic metabolic panel (04/14/2019 1:45 AM CDT) Sodium 138 135 - 145 mmol/L [facility] Potassium, pl 4.4 3.3 - 4.9 mmol/L [facility] Chloride 111(H) 97 - 110 mmol/L [facility] CO2 20(L) 22 - 32 mmol/L [facility] Anion gap 7 2 - 15 mmol/L [facility] BUN 11 8 - 25 mg/dL [facility] Creatinine 0.86 0.60 - 1.10 mg/dL [facility] Glucose 157 70 - 199 mg/dL [facility] [...] 2017. Calcium 6.4(C) 8.5 - 10.3 mg/dL [facility] Blood specimen (specimen) 04/14/2019 1:45 AM CDT 04/14/2019 2:21 AM CDT us Greyson Reeves MD LAB BLOOD ORDERABLES Final R esult [facility] [address] [place], [place] [id number] * (ABNORMAL) Differential, auto (04/14/2019 1:45 AM CDT) Pathologist [facility] Neutrophil abs 5.1 1.7 - 6.5 K/cumm [facility] Imm gran abs 0.0 0.0 - 0.1 K/cumm [facility] Lymphocyte abs 0.3(L) 0.8 - 3.3 K/cumm [facility] Monocyte abs 0.9(H) 0.2 - 0.8 K/cumm [facility] Eosinophil abs 0.0 0.0 - 0.5 K/cumm [facility] Basophil abs 0.0 0.0 - 0.1 K/cumm [facility] Neutrophil pct 80.6 % [facility] Comment: Confirmed by smear review Interpretive Data Percent cell count reference ranges are not reported, since discordance with absolute values may lead to misinterpretation of CBC data. Current Interpretive Data was last revised on 2017. Imm gran pct 0.2 % [facility] Comment: Interpretive Data Percent cell count reference ranges are not reported, since discordance with absolute values may lead to misinterpretation of CBC data. Current Interpretive Data was last revised on 2017. Lymphocyte pct 4.3 % [facility] Comment: Interpretive Data Percent cell count reference ranges are not reported, since discordance with absolute values may lead to misinterpretation of CBC data. Current Interpretive Data was last revised on 2017. Monocyte pct 14.6 % [facility] Comment: Interpretive Data Percent cell count reference ranges are not reported, since discordance with absolute values may lead to misinterpretation of CBC data. Current Interpretive Data was last revised on 2017. Eosinophil pct 0.0 % [facility] Comment: Interpretive Data Percent cell count reference ranges are not reported, since discordance with absolute values may lead to misinterpretation of CBC data. Current Interpretive Data was last revised on 2017. Basophil pct 0.3 % [facility] Comment: Interpretive Data Percent cell count reference ranges are not reported, since discordance with absolute values may lead to misinterpretation of CBC data. Current Interpretive Data was last revised on 2017. Blood specimen (specimen) 04/14/2019 1:45 AM CDT 04/14/2019 2:21 AM CDT us Katarina Hall [employer] LAB BLOOD ORDERABLES Final Res ult [facility] [address] [place] [address] * (ABNORMAL) Phosphorus (04/14/2019 1:45 AM CDT) Phosphorus, pl 1.6(L) 2.3 - 4.5 mg/dL [facility] Blood specimen (specimen) 04/14/2019 1:45 AM CDT 04/14/2019 2:21 AM CDT Greyson Reeves MD LAB BLOOD ORDERABLES Final R esult Performing Organization Address [facility] Co de Phone Number [address] [address] * Magnesium (04/14/2019 1:45 AM CDT) Pathologist [facility] Magnesium 1.8 1.4 - 2.5 mg/dL [facility] Blood specimen (specimen) 04/14/2019 1:45 AM CDT 04/14/2019 2:21 AM CDT Greyson Reeves MD LAB BLOOD ORDERABLES Final R esult Performing Organization Address [facility] de Phone Number [address] [address] * (ABNORMAL) CBC with auto differential (04/14/2019 1:45 AM CDT) [facility] WBC 6.3 3.8 - 9.9 K/cumm [facility] Hgb 12.2 11.9 - 15.5 g/dL [facility] Hct 37.5 35.6 - 45.5 % [facility] Plt 145(L) 150 - 400 K/cumm [facility] MPV 10.5 9.1 - 12.3 fL [facility] RBC 3.96 3.90 - 5.20 M/cumm [facility] MCV 94.7 81.3 - 96.4 fL [facility] MCH 30.8 27.1 - 33.3 pg [facility] MCHC 32.5 32.3 - 35.7 g/dL [facility] RDW CV 14.2 11.1 - 14.9 % [facility] RDW SD 48.6(H) 35.7 - 48.1 fL [facility] NRBC abs 0.00 0.00 - 0.01 K/cumm [facility] Blood specimen (specimen) 04/14/2019 1:45 AM CDT 04/14/2019 2:21 AM CDT Greyson Reeves MD LAB BLOOD ORDERABLES Final R esult Performing Organization Address [facility] Co de Phone Number [facility] [address] [place] [address] * aPTT (04/12/2019 9:48 PM CDT) aPTT 26.3 25.0 - 37.0 sec [facility] Comment: Interpretive Data Therapeutic heparin range:60.0 - 94.0 sec based on correlation with therapeutic heparin activity range of 0.3 -0.7 Units/mL. Current interpretive data was last revised on 2011. Blood specimen (specimen) 04/12/2019 9:48 PM CDT 04/12/2019 10:22 PM CDT Woodrow Cerna MD LAB BLOOD ORDERABLES Final Res ult Performing Organization Address [facility] de Phone Number [facility] [address] [place] [address] * Protime-INR (04/12/2019 9:48 PM CDT) PT 11.3 8.6 - 13.0 sec [facility] INR 1.05 0.80 - 1.20 [facility] Comment: Interpretive Data Inpatient therapeutic ranges* Atrial fibrillation ?2.0-3.0 INR Venous thrombo-embolism ?2.0-3.0 INR Bioprosthetic heart valve ?* Mechanical heart valve, bileaflet or tilting disk,aortic position ? 2.0-3.0 INR All other,or bileaflet or tilting disk, in mitral position ? 2.5-3.5 INR *See the pharmacy resource directory (PHRED) for an updated copy of the Tool Book at [email or web address] Current Interpretive Data was last revised 2011. Blood specimen (specimen) 04/12/2019 9:48 PM CDT 04/12/2019 10:22 PM CDT Woodrow Cerna MD LAB BLOOD ORDERABLES Final Res ult Performing Organization Address [facility] de Phone Number [address] [address] * Type and screen (04/12/2019 9:48 PM CDT) Yolande, indirect Negative [facility] ABO Rh AB Positive [facility] Blood specimen (specimen) 04/12/2019 9:48 PM CDT 04/12/2019 10:24 PM CDT Narrative [facility] - 04/12/2019 11:12 PM CDT Has the patient had Daratumumab (Darzalex) in the past 6 months?->Unknown Woodrwo Cerna MD LAB BLOOD BANK TEST ORDERABLES Final Result Performing Organization Address [facility] de Phone Number [address] [address] * (ABNORMAL) Phosphorus (04/12/2019 9:48 PM CDT) Phosphorus, pl 1.2(L) 2.3 - 4.5 mg/dL [facility] Blood specimen (specimen) 04/12/2019 9:48 PM CDT 04/12/2019 10:25 PM CDT Woodrow Cerna MD LAB BLOOD ORDERABLES Final Res ult Performing Organization Address [facility]/ZIP Co de Phone Number [address] [address] * Magnesium (04/12/2019 9:48 PM CDT) Pathologist [facility] Magnesium 2.1 1.4 - 2.5 mg/dL [facility] Blood specimen (specimen) 04/12/2019 9:48 PM CDT 04/12/2019 10:25 PM CDT Woodrow Cerna MD LAB BLOOD ORDERABLES Final Res ult Performing Organization Address [facility] Co de Phone Number [address] [address] * (ABNORMAL) CBC without differential (04/12/2019 9:48 PM CDT) [facility] WBC 5.0 3.8 - 9.9 K/cumm [facility] Hgb 13.6 11.9 - 15.5 g/dL [facility] Hct 40.9 35.6 - 45.5 % [facility] Plt 130(L) 150 - 400 K/cumm [facility] MPV 10.3 9.1 - 12.3 fL [facility] RBC 4.49 3.90 - 5.20 M/cumm [facility] MCV 91.1 81.3 - 96.4 fL [facility] MCH 30.3 27.1 - 33.3 pg [facility] MCHC 33.3 32.3 - 35.7 g/dL [facility] RDW CV 14.3 11.1 - 14.9 % [facility] RDW SD 46.8 35.7 - 48.1 fL [facility] NRBC abs 0.00 0.00 - 0.01 K/cumm [facility] Blood specimen (specimen) 04/12/2019 9:48 PM CDT 04/12/2019 10:24 PM CDT Woodrow Cerna MD LAB BLOOD ORDERABLES Final Res ult Performing Organization Address City/[facility]/ZIP Co de Phone Number [address] [place] [address] * (ABNORMAL) Basic metabolic panel (04/12/2019 9:48 PM CDT) Sodium 139 135 - 145 mmol/L [facility] Potassium, pl 3.9 3.3 - 4.9 mmol/L [facility] Chloride 108 97 - 110 mmol/L [facility] CO2 24 22 - 32 mmol/L [facility] Anion gap 7 2 - 15 mmol/L [facility] BUN 16 8 - 25 mg/dL [facility] Creatinine 0.83 0.60 - 1.10 mg/dL [facility] Glucose 155 70 - 199 mg/dL [facility] [...] 2017. Calcium 8.0(L) 8.5 - 10.3 mg/dL [facility] Blood specimen (specimen) 04/12/2019 9:48 PM CDT 04/12/2019 10:25 PM CDT us Woodrow Cerna MD LAB BLOOD ORDERABLES Final Res ult [facility] [address] [place] [address] * CT Body Outside Consult (04/12/2019 5:22 [...] images may or may not represent the [place] source data set and thus may contain changes that may lower the accuracy of this second-opinion interpretation. Electronically signed by: Chalino Abernathy M.D., MPH Narrative 04/12/2019 1:12 PM CDT EXAMINATION: RADIOLOGY CONSULTATION ON OUTSIDE IMAGING STUDY STUDY INITIALLY PERFORMED: 04/11/2019 at [facility]. TYPE OF STUDY: Multiple computed tomographic images [...] IMAGING STUDY STUDY INITIALLY PERFORMED: 04/11/2019 at [facility]. TYPE OF STUDY: Multiple computed tomographic images [...] images may or may not represent the [place] source data set and thus may contain changes that may lower the accuracy of this second-opinion interpretation. Electronically signed by: Chalino Abernathy M.D., MPH Woodrow Cerna MD IMG CT PROCEDURES Final Result * (ABNORMAL) Urinalysis, microscopic only (04/12/2019 2:03 AM CDT) WBC, ur 6-10(A) 0 - 5 /HPF [facility] RBC, ur 3-5(A) 0 - 2 /HPF [facility] Epithelial cells, squamous, ur 1-5 0 - 5 /HPF [facility] Bacteria, ur 3+(A) [facility] Mucous, ur Present(A) [facility] Urine 04/12/2019 2:03 AM CDT 04/12/2019 3:34 AM CDT Woodrow Cerna MD LAB URINE ORDERABLES Final Res ult Performing Organization Address [facility] Co de Phone Number [facility] [address] [address] * Urine culture Urine, bladder (04/12/2019 2:03 AM CDT) Report Final Report: Less than 100,000 colonies/mL (clinically insignificant growth based on current clinical standards) [facility] Organism (CLINICALLY INSIGNIFICANT GROWTH [facility] Urine, bladder 04/12/2019 2: 03 AM CDT 04/12/2019 3:46 AM CDT Narrative [facility] - 04/13/2019 8:58 AM CDT Indications for Culture:->Recent positive UA Testing performed by [facility] ([phone]) Woodrow Cerna MD LAB MICROBIOLOGY - GENERAL ORD ERABLES Final Result Performing Organization Address [facility]/ZIP Co de Phone Number [facility] [address] [place] [address] * (ABNORMAL) Urinalysis reflex to microscopic (04/12/2019 2:03 AM CDT) Color, ur Yellow Yellow [facility] Clarity, ur Cloudy(A) Clear [facility] Specific gravity, ur >1.042(H) 1.010 - 1.025 [facility] pH, urine 5 [facility] Protein, ur ql 1+(A) Negative [facility] Glucose, ur ql Negative Negative [facility] Ketones, ur Trace Negative [facility] Bilirubin, ur Negative Negative [facility] Blood, ur Negative Negative [facility] Urobilinogen, ur <2.0 <2.0 mg/dL [facility] Nitrite, ur Negative Negative [facility] Leukocyte esterase, ur Negative Negative [facility] Urine 04/12/2019 2:03 AM CDT 04/12/2019 3:34 AM CDT Narrative [facility] - 04/12/2019 3:54 AM CDT ?? Urine pH is affected by diet, medications, systemic acid-base disturbances, and renal tubular function. ??pH may affect urinary stone formation. ??For example, urine pH below 6.0 may help reduce the tendency for calcium phosphate stones and pH greater than 6.0 may reduce the tendency for uric acid stone formation. Source: [facility]. Last revised 07-18-2017 Woodrow Cerna MD LAB URINE ORDERABLES Final Res ult Performing Organization Address [facility] Co de Phone Number [address] [address] * Phosphorus (04/12/2019 2:00 AM CDT) Phosphorus, pl 3.3 2.3 - 4.5 mg/dL [facility] Blood specimen (specimen) 04/12/2019 2:00 AM CDT 04/12/2019 3:39 AM CDT Woodrow Cerna MD LAB BLOOD ORDERABLES Final Res ult Performing Organization Address [facility] Co de Phone Number [address] [address] * Magnesium (04/12/2019 2:00 AM CDT) Magnesium 2.0 1.4 - 2.5 mg/dL [facility] Blood specimen (specimen) 04/12/2019 2:00 AM CDT 04/12/2019 3:39 AM CDT Woodrow Cerna MD LAB BLOOD ORDERABLES Final Res ult Performing Organization Address [facility] Co de Phone Number [facility] [address] [place] [address] * (ABNORMAL) Basic metabolic panel (04/12/2019 2:00 AM CDT) Pathologist [facility] Sodium 141 135 - 145 mmol/L [facility] Potassium, pl 3.1(L) 3.3 - 4.9 mmol/L [facility] Chloride 107 97 - 110 mmol/L [facility] CO2 24 22 - 32 mmol/L [facility] Anion gap 10 2 - 15 mmol/L [facility] BUN 14 8 - 25 mg/dL [facility] Creatinine 0.77 0.60 - 1.10 mg/dL [facility] Glucose 136 70 - 199 mg/dL [facility] [...] 2017. Calcium 8.2(L) 8.5 - 10.3 mg/dL [facility] Blood specimen (specimen) 04/12/2019 2:00 AM CDT 04/12/2019 3:39 AM CDT Woodrow Cerna MD LAB BLOOD ORDERABLES Final Res ult Performing Organization Address [facility] Center de Phone Number JASON BLACK [address] [place] [address] * (ABNORMAL) CBC without differential (04/12/2019 2:00 AM CDT) WBC 7.0 3.8 - 9.9 K/cumm [facility] Hgb 14.3 11.9 - 15.5 g/dL [facility] Hct 42.4 35.6 - 45.5 % [facility] Plt 135(L) 150 - 400 K/cumm [facility] MPV 10.5 9.1 - 12.3 fL [facility] RBC 4.74 3.90 - 5.20 M/cumm [facility] MCV 89.5 81.3 - 96.4 fL [facility] MCH 30.2 27.1 - 33.3 pg [facility] MCHC 33.7 32.3 - 35.7 g/dL [facility] RDW CV 13.6 11.1 - 14.9 % [facility] RDW SD 44.0 35.7 - 48.1 fL [facility] NRBC abs 0.00 0.00 - 0.01 K/cumm [facility] Blood specimen (specimen) 04/12/2019 2:00 AM CDT 04/12/2019 3:39 AM CDT us Woodrow Cerna MD LAB BLOOD ORDERABLES Final Res ult [facility] [address] [place] [address] documented in this encounter Visit Diagnoses Diagnosis Large bowel obstruction (CMS/HCC) (HCC)- Primary Unspecified intestinal obstruction Large bowel obstruction (CMS/HCC) (HCC) Unspecified intestinal obstruction Acute postoperative abdominal pain 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 Large bowel obstruction (CMS/HCC) (HCC) Unspecified intestinal obstruction documented in this encounter Administered Medications Inactive [...] Given 04/23/2019 1:28 PM CDT 1,000 mg benzocaine-menthol (CHLORASEPTIC) lozenge 1 lozenge 1 lozenge, mouth/throat, Every 2 hours PRN, sore throat, Starting on Sat04/17/19 at 0151 cholecalciferol (VITAMIN D-3) capsule 2,000 Units 2,000 Units, oral, Daily, First dose (after last modification) on 04/25/[address] (CYMBALTA) extended release capsule 30 [...] CDT 40 mg L eft Lower Abdomen gabapentin (NEURONTIN) capsule 200 mg 200 mg, feeding tube, 2 times daily, First dose on Sat04/14/19 at 0900 Given 04/24/2019 11:39 AM CDT 200 mg Given 04/23/2019 8:20 PM CDT 200 mg Given 04/23/2019 9:17 AM CDT 200 mg hydroCHLOROthiazide (HYDRODIURIL) tablet 12.5 mg 12.5 mg, oral, Daily, First dose on Sat04/18/19 at 1100 Given 04/24/2019 11:40 AM CDT 12.5 mg Given 04/23/2019 9:17 AM CDT 12.5 mg Given 04/22/2019 9:29 AM CDT 12.5 mg loratadine (CLARITIN) tablet 10 mg 10 mg, oral, Daily, First dose (after last modification) on Sat04/20/19 at 0000 Given 04/24/2019 11:38 AM CDT 10 mg Given 04/23/2019 9:17 AM CDT 10 mg Given 04/22/2019 9:26 AM CDT 10 mg losartan (COZAAR) tablet 25 mg 25 mg, oral, Daily, First dose on 04/18/19 at 1100 Given 04/24/2019 11:39 AM CDT 25 mg Given 04/23/2019 9:17 AM CDT 25 mg Given 04/22/2019 9:26 AM CDT 25 mg oxybutynin (DITROPAN) tablet 5 mg 5 [...] Given 04/21/2019 10:00 PM CDT 5 mg simvastatin (ZOCOR) tablet 20 mg 20 mg, oral, Nightly, First dose (after last reorder) on 04/18/19 at 2100 Given 04/23/2019 8:20 PM CDT 20 mg Given 04/22/2019 8:12 PM CDT 20 mg Given 04/21/2019 10:00 PM CDT 20 mg sodium chloride 0.9 % irrigation As needed, Starting on Sat04/13/19 at 1551, Intra-Op Given 04/13/2019 3:51 PM CDT 1,000 mL sodium chloride 0.9% flush 0.5-20 [...] size, and protocol. documented in this encounter Discontinued Medications Medication [...] want to be)1328 (Given - Provider: Jesus James, [place])2020 (Given - Provider: Pamela Nails, [place]) 0347 (Not Given - Provider: Pamela Nails RN - Reason: Patient/family refused - Comment: patient did not want to be woken up for tylenol)1142 (Given - Provider: Nichole Nash RN) aluminum-magnesium hydroxide-simethicone (MAALOX) 40-40-4 mg/mL oral suspension 30 mL (COMPLETED) 30 mL, oral, Once, On Lydia 04/23/19 at 2230, For 1 dose 2159 (Given - Provider: Pamela Nails, [place]) calcium carbonate (TUMS) chewable tablet 2,500 mg (CANCELED) 2,500 mg (1,000 mg of elemental calcium), oral, Daily, First dose (after last modification) on Sat04/22/19 at 0900 0927 (Given - Provider: Nichole Nash RN) 0917 (Given - Provider: Bea Escobar RN) 0900 (Due) cholecalciferol (VITAMIN D-3) capsule 2,000 Units 2,000 Units, oral, Daily, First dose (after last modification) on 04/25/19 at 0900 cholecalciferol (VITAMIN D-3) capsule 5,000 [...] Nash RN) 0917 (Given - Provider: Bea Escobar, [place]) 1138 (Given - Provider: Nichole Nash RN) enoxaparin (LOVENOX) syringe 40 mg 40 mg, subcutaneous, Daily (for enoxaparin), First dose on Sat04/14/19 at 2100, RN to teach home administration with every injection, Indications: Deep Vein Thrombosis Prevention 2010 (Given - Provider: Pamela Nails, [place]) 2018 (Given - Provider: Pamela Nails RN) gabapentin (NEURONTIN) capsule 200 mg 200 mg, feeding tube, 2 times daily, First dose on Sat04/14/19 at 0900 0926 (Given - Provider: Nichole Nash RN)2011 (Given - Provider: Pamela Nails RN) 09 (Given - Provider: Bea Escobar RN)2019 (Given - Provider: Pamela Nails RN) 113 [...] (after last modification) on Sat04/20/19 at 0000 0926 (Given - Provider: Nichole Nash RN) 09 (Given - Provider: Bea Escobar RN) 1138 (Given - Provider: Nichole Nash RN) losartan (COZAAR) tablet 25 mg 25 mg, oral, Daily, First dose on Sat04/18/19 at 1100 0926 (Given - Provider: Nichole Nash RN) 09 (Given - Provider: Bea Escobar RN) 1139 (Given - Provider: Nichole Nash RN) oxybutynin (DITROPAN) tablet 5 mg 5 mg, oral, 3 times daily, First dose on Sat04/19/19 at 0900 0926 (Given - Provider: Nichole Nash RN)163 (Given - Provider: Nichole Nash RN)2011 (Given - Provider: Pamela Nails RN) 0917 (Given - Provider: Bea Escobar RN)1613 (Given - Provider: Bea Escobar RN)2019 (Given - Provider: Pamela Nails RN) 1139 (Given - Provider: Nichole Nash, RN)1600 (Due) potassium chloride ER (KLOR-CON) extended release tablet 20 mEq (COMPLETED) 20 mEq, oral, Once, On Lydia 04/23/19 at 0630, For 1 dose, Do not crush, chew, cut, dissolve, open or otherwise manipulate tablet/capsule. 0653 (Given - Provider: Paemla Nails RN) simvastatin (ZOCOR) tablet 20 mg 20 mg, oral, Nightly, First dose (after last reorder) on 04/18/19 at 2100 2011 (Given - Provider: Pamela Nails RN) 2019 (Given - Provider: Pamela Nails RN) sodium chloride 0.9% flush 0.5-20 mL 0.5-20 mL, intra-catheter, Every 8 hours scheduled, First dose on 04/12/19 at 0600, Flush volume based on line [...] scheduled, First dose on 04/13/19 at 2300, Flush volume based on line type and size. 0608 (Not Given - Provider: Soniya Aguirre RN - Reason: Order parameters not met)163 (Given - Provider: Nichole Nash, [place])2011 (Given - Provider: Pamela Nails RN) 0549 (Given - Provider: Pamela Nails RN)1400 (Due)2022 (Given - Provider: Pamela Nails RN) 0544 (Given - Provider: Pamela Nails RN)1400 (Due) sodium chloride 0.9% flush 5-10 mL 5-10 mL, intra-catheter, Every 12 hours scheduled, First dose on Sat04/14/19 at 2100, Flush volume based on line type, size, and protocol. 0900 (Due)2100 (Due) 0900 (Due)2023 (Given - Provider: Pamela Nails RN) [...] Indications: Pain 2154 (Given - Provider: Pamela Nails RN) 2200 (Given - Provider: Pamela Nails RN) prochlorperazine (COMPAZINE) injection 10 mg 10 mg, intravenous, Every 6 hours PRN, nausea, vomiting, Starting on 04/13/19 at 2219, If not relieved by ondansetron [...] 1 04/24/2019 HYDROmorphone (DILAUDID) injection 0.2 mg 6 04/24/2019 04/12/2019 aluminum-magnesium hydroxide -simethicone (MAALOX) 40-40-4 mg/mL oral suspension 30 mL 1 04/23/2019 potassium chloride ER (KLOR- CON) extended release tablet 20 mEq 2 04/23/2019 04/20/2019 calcium carbonate (TUMS) johnny wable tablet 2,500 mg 2 04/21/2019 04/17/2019 magnesium sulfate 2 g/50 mL in water (premix) 2 g 5 04/20/2019 04/14/2019 mirabegron ER (MYRBETRIQ) ex tended release tablet 50 mg 2 04/20/2019 04/12/2019 potassium chloride ER (KLOR- CON) extended release tablet 40 mEq 1 04/20/2019 hydrALAZINE (APRESOLINE) injection 10 mg 2 04/19/2019 04/18/2019 loratadine (CLARITIN) tablet 10 mg 5 201804/17/2019 oxybutynin (DITROPAN) tablet 5 mg 1 019 potassium chloride 20 mEq/26 0 mL in sodium chloride 0.9% (premix) 20 mEq 3 04/19/2019 04/17/2019 potassium chloride 40 mEq/52 0 mL in sodium chloride 0.9% (premix) 40 mEq 4 04/19/2019 04/12/2019 potassium, sodium phosphates (PHOS-NAK) 280-160-250 mg packet 1 packet 2 04/19/2019 9 bupivacaine preservative bryant e in 0.9% sodium chloride 250 mL 0.1 % (1,000 mcg/mL) 7 04/18/2019 04/13/2019 hydroCHLOROthiazide (HYDRODI URIL) tablet 12.5 mg 1 04/18/2019 losartan (COZAAR) tablet 25 mg 1 04/18/2019 potassium chloride (KAYCIEL) 1.3 mEq/mL oral liquid 40 mEq 1 04/18/2019 simvastatin (ZOCOR) tablet 20 mg 3 04/18/20 19 04/12/2019 sodium phosphate 20 mmol in sodium chloride 0.9% 250 mL IVPB 2 04/18/2019 04/14/2019 benzocaine-menthol (CHLORASE PTIC) lozenge 1 lozenge 1 04/17/2019 calcium carbonate (TUMS) johnny wable tablet 1,000 mg 1 04/17/2019 calcium gluconate 2 g in sod ium chloride 0.9% 100 mL IVPB 4 04/17/2019 04/14/2019 cholecalciferol (VITAMIN D-3 ) capsule 5,000 Units 1 04/17/2019 dextrose 5% and sodium chlor shaq 0.45% infusion (premix) 2 04/17/2019 04/12/2019 dextrose 5% and sodium chlor shaq 0.9% with potassium chloride 20 mEq/L infusion (premix) 1 04/17/2019 oxyCODONE (ROXICODONE) tablet 5 mg 1 2018 potassium phosphates 30 mmol in sodium chloride 0.9% 500 mL IVPB 1 04/17/2019 sodium chloride 0.9% IVPB 0-250 mL 1 2018 calcium carbonate (OS-SKYLER) 2 50 mg/mL (100 mg/mL as elemental) oral suspension 5,000 mg 1 04/15/2019 cholecalciferol (VITAMIN D-3 ) 400 unit/mL oral drops 15,200 Units 1 04/15/2019 cholecalciferol (VITAMIN D-3 ) capsule 15,000 Units 2 04/15/2019 famotidine (PEPCID) 20 mg/50 mL in sodium chloride 0.9% (premix) 20 mg 1 04/15/2019 sodium chloride 0.9% bolus 500 mL 3 019 04/14/2019 calcium carbonate (OS-SKYLER) 2 50 mg/mL (100 mg/mL as elemental) oral suspension 2,500 mg 1 04/14/2019 calcium gluconate 12,000 mg in sodium chloride 0.9% 1,000 mL (12 mg/mL) infusion 3 04/14/2019 Lactated Ringer's (LR) bolus 500 mL 1 04/14 lidocaine PF (XYLOCAINE) 10 mg/mL (1 %) preservative free injection 10-20 mg 1 04/14/2019 magnesium sulfate 1 g in sod ium chloride 0.9% 50 mL IVPB 1 04/14/2019 sodium chloride 0.9% bolus 1,000 mL 1 04/14 sodium chloride 0.9% flush 5-10 mL 1 2018 sodium chloride 0.9% flush 5-20 mL 1 2018 sodium chloride 0.9% infusion 3 04/14/2019 04/13/2019 acetaminophen (TYLENOL) tablet 1,000 mg 1 1 dextrose 5% and sodium chlor shaq 0.45% with potassium chloride 20 mEq/L infusion (premix) 2 04/13/2019 enoxaparin (LOVENOX) syringe 40 mg 2 201804/12/2019 gabapentin (NEURONTIN) capsule 200 mg 1 01/2019 haloperidol (HALDOL) injection 0.5 mg 1 01/2019 HYDROmorphone in 0.9% sodium chloride (DILAUDID) 20 mg/100 mL (0.2 mg/mL) infusion (premix) 1 04/13/2019 Lactated Ringer's (LR) infusion 1 9 LORazepam (ATIVAN) injection 0.5 mg 1 04/13 naloxone (NARCAN) 0.4 mg/mL injection 0.04-0.4 mg 2 04/13/2019 ondansetron (ZOFRAN) injection 4 mg 2 04/1304/12/2019 prochlorperazine (COMPAZINE) injection 10 mg 1 04/13/2019 sodium chloride 0.9% flush 0.5-20 mL 5 01/201904/12/[address] (CYMBALTA) ext ended release capsule 30 mg 1 04/12/2019 sodium phosphate 30 mmol in sodium chloride 0.9% 250 mL IVPB 1 04/12/2019 Lab Orders Without Results Count Last Ordered [...] 04/13/2019 documented in this encounter Care Teams Woodwork Salvage Inspector Relationship Specialty Start Date End Date Julio César Briseno MD PCP - General 10/01/16 Eren Cr MD Referring Physician Medical Oncology 11/25/18 Yohana Bowen MD Radiation Oncologist Radiation Oncology 11/25/18 documented as of this encounter
--- OUTSIDE RECORDS SUMMARY | 2024-06-25 22:37 | XMS_ITS | Encounter Summary ---
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) Social History Tobacco Use Types Packs/Day Years Used Date Smoking Tobacco: Never Smokeless Tobacco: Never Alcohol Use Standard Drinks/Week Comments Yes 1 (1 standard drink = 0.6 oz pur e alcohol) Comments No Sex and Gender Information Value Date Recorded Sex Assigned at Not on file 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 Gender Identity Not on file Sexual Orientation Straight 02/19/2021 9: 29 AM CDT Occupation Industry Job Start Date Job End Date retired Not on file Not on file Not on file documented as of this encounter Plan of Treatment Not on file documented as of this encounter Results * CBC with auto differential (12/29/2018 9:37 AM CDT) WBC 5.1 3.8 - 9.8 K/cumm CERNER BJ Comment:Testing performed by : [facility], [address] [place] [address] Hgb 14.5 12.1 - 15.1 g/dL CERNER BJ Comment:Testing performed by : [place] [address] Hct 41.8 36.1 - 44.3 % CERNER BJ Comment:Testing performed by : [facility], [address] [place] [address] Plt 159 140 - 440 K/cumm CERMINNIE BJ Comment:Testing performed by : [place] [address] MPV 8.4 6.8 - 10.4 fL CERNER BJ Comment:Testing performed by : [place] [address] RBC 4.90 3.90 - 5.00 M/cumm CERNER BJ Comment:Testing performed by : [place] [address] MCV 85.3 80.0 - 97.6 fL CERNER BJ Comment:Testing performed by : [place] [address] MCH 29.6 26.7 - 33.7 pg CERNER BJ Comment:Testing performed by : [place] [address] MCHC 34.7 32.7 - 35.5 g/dL CERNER BJ Comment:Testing performed by : [place] [address] RDW CV 13.3 11.8 - 14.6 % CERNER BJ Comment:Testing performed by : [place] [address] NRBC abs 0.01 0.00 - 0.01 K/cumm CERMINNIE BJ Comment:Testing performed by : [place] [address] Blood specimen (specimen) 12/29/2018 9:37 AM CDT 12/29/2018 9:38 AM CDT Eren Cr MD LAB BLOOD ORDERABLES Final Re sult Performing Organization Address [facility] Co de Phone Number JASON [facility] [place] [address] * (ABNORMAL) Chromogranin A (12/29/2018 9:34 AM CDT) Chromogranin A 203(H) <93 ng/mL [facility] Comment: Impaired renal or hepatic function or treatment with proton pump inhibitors may result in artifactual elevations of Chromogranin A. ADDITIONAL INFORMATION This test was developed and its performance characteristics determined by [facility] in a manner consistent with CLIA [...] malignant disease. Test Performed by: [facility] [place] [id number] [place] [address] Blood specimen (specimen) 12/29/2018 9:34 AM CDT 12/29/2018 11:35 AM CDT us Eren Cr MD LAB BLOOD ORDERABLES Final Re sult Performing Organization Address [facility]/ZIP Co de Phone Number JASON [facility] [place] [address] * (ABNORMAL) Comprehensive metabolic panel (12/29/2018 9:34 AM CDT) Sodium 142 135 - 145 mmol/L [facility] Potassium, pl 3.4 3.3 - 4.9 mmol/L [facility] Chloride 104 97 - 110 mmol/L [facility] CO2 29 22 - 32 mmol/L [facility] Anion gap 9 2 - 15 mmol/L [facility] BUN 10 8 - 25 mg/dL [facility] Creatinine 0.86 0.60 - 1.10 mg/dL [facility] Glucose 135 70 - 199 mg/dL [facility] 2017. Calcium 11.1(H) 8.5 - 10.3 mg/dL [facility] Bilirubin, total 0.7 0.1 - 1.2 mg/dL [facility] Protein, pl 6.9 6.5 - 8.5 g/dL [facility] Albumin 4.3 3.5 - 5.0 g/dL [facility] Alk phos 81 40 - 130 Units/L [facility] ALT 15 7 - 45 Units/L [facility] AST 20 10 - 45 Units/L [facility] Blood specimen (specimen) 12/29/2018 9:34 AM CDT 12/29/2018 9:45 AM CDT Eren Cr MD LAB BLOOD ORDERABLES Final Re sult [facility] Department of Laboratories [place], [place] [id number] documented in this encounter Visit Diagnoses Diagnosis Neuroendocrine carcinoma (HCC)- Primary Other malignant neoplasm of unspecified site 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
--- OUTSIDE RECORDS SUMMARY | 2024-06-25 22:37 | XMS_ITS | Encounter Summary ---
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 Gender Identity Not on file Sexual Orientation Straight 02/19/2021 9: 29 AM CDT Occupation Industry Job Start Date Job End Date retired Not on file Not on file Not on file documented as of this encounter Plan of Treatment Not on file documented as of this encounter Results * Vitamin D 25 hydroxy (09/15/2018 6:45 AM CDT) Vitamin D 25-OH 55 30 - 80 ng/mL [facility] Blood specimen (specimen) 09/15/2018 6:45 AM CDT 09/15/2018 6:51 AM CDT Narrative JASON [facility] - 09/15/2018 11:20 AM CDT Eren Cr MD LAB BLOOD ORDERABLES Final Re sult [facility] Department [place] [address] documented in this encounter Visit Diagnoses Diagnosis Neuroendocrine carcinoma (HCC)- Primary Other malignant neoplasm of unspecified site 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
--- OUTSIDE RECORDS SUMMARY | 2024-06-25 22:37 | XMS_ITS | Encounter Summary ---
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); Neuroendocrine carcinoma (CMS/HCC) Social History Tobacco Use Types Packs/Day Years Used Date Smoking Tobacco: Never Smokeless Tobacco: Never Alcohol Use Standard Drinks/Week Comments Yes 1 (1 standard drink = 0.6 oz pur e alcohol) Comments No Sex and Gender Information Value Date Recorded Sex Assigned at Not on file 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
--- OUTSIDE RECORDS SUMMARY | 2024-06-25 22:37 | XMS_ITS | Encounter Summary ---
Author Organization [facility] Address [address] [place] [address] Care Team Providers Care Manager Home Name Role Phone Julio César Briseno MD Primary Care Provider [phone] Reason for Referral * Diagnostic Imaging (Routine) - Closed Specialty Diagnoses / Procedures Referred By Contac t Referred To Contact Radiology Diagnoses 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) Procedures MRI Abdomen Liver W WO Contrast Eren Cr MD Phone: tel: fax: [address] [address] Referral ID Status Reason Start Date Expiration Date Visits Re quested Visits Authorized [id number] Closed 10/13/2018 04/23/2020 1 1 Reason for Visit * Diagnostic Imaging (Routine) - Closed Specialty Diagnoses / Procedures Referred By Contac t Referred To Contact Radiology Diagnoses 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) Procedures MRI Abdomen Liver W WO Contrast Eren Cr MD Phone: tel: fax: [address] [address] Referral ID Status Reason Start Date Expiration Date Visits Re quested Visits Authorized [id number] Closed 10/13/2018 04/23/2020 1 1 Encounter Details Date Type Department Care Team (Latest Contact Info) Description 10/21/2018 6:14 AM CDT - 10/21/2018 11:59 PM CDT Hospital Encounter [facility] Radiology [address] [facility] [place] [address] Eren Cr MD [id number] [facility] [address] [place] [address] Secondary malignant neoplasm of liver (CMS/HCC); Neuro-endocrine carcinoma (CMS/HCC) Discharge Disposition: Discharge to home or self care Social History Tobacco Use Types Packs/Day Years Used Date Smoking Tobacco: Never Smokeless Tobacco: Never Alcohol Use Standard Drinks/Week Comments Yes 1 (1 standard drink = 0.6 oz pur e alcohol) Comments No Sex and Gender Information Value Date Recorded Sex Assigned at Not on file 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 9 MYRBETRIQ 50 mg tablet extended release 24 hr Take 50 mg by mouth daily 1 09/29/2018 9 octreotide (SandoSTATIN) 50 mcg/mL (1 mL) syringe every 30 (thirty) days 04/09/2016 2 olmesartan-hydro chlorothiazide (BENICAR HCT) 40-25 mg per tablet Take 1 tablet by mouth daily. 3 04/18/2018 9 PROCTOSOL HC 2.5 % rectal cream APPLY RECTALLY THREE TIMES A DAY 0 09/25/2017 9 trospium (SANCTURA) 20 mg tablet Take 20 mg by mouth. 06/15/2018 9 wheat dextrin (BENEFIBER CLEAR SF, DEXTRIN, ORAL) 9 documented as of this encounter Discharge Disposition Disposition Code Departure Means Destination Discharge to home or self care documented in this encounter Plan of Treatment Not on file documented as of this encounter Procedures Procedure Name Priority Date/Time Associated Diagnosis Comments MRI ABDOMEN LIVER W WO CONTRAST Schedule URIEL, Read URIEL (Appt Today, Awaiting Results) 10/21/2018 8:10 AM CDT Secondary malignant neoplasm of liver (CMS/HCC) Neuro-endocrine carcinoma (CMS/HCC) POCT CREATININE FOR CONTRAST EVALUATION Routine Gen Lab 10/21/2018 6:34 AM CDT documented in this encounter Results * MRI Abdomen Liver W WO Contrast (10/21/2018 8:10 AM CDT) Anatomical Region Laterality Modality Body N/A Magnetic Resonan ce 10/21/2018 12:4 5 PM CDT Impressions 10/22/2018 9:01 AM CDT 1. Multiple hepatic lesions of concern the prior examination are consistent with metastases. In addition to these, there are numerous additional left and right hemiliver metastases that were not visualized on the prior examination due to differences in modality. 2. Omental deposits are consistent with metastases. Dictated by: Aram Reyna M.D. The radiology attending physician has personally reviewed this study, and had reviewed and/or edited this written report and agrees with it. Electronically signed by: Lexa Ferguson M.D. Narrative 10/22/2018 9:01 AM CDT EXAMINATION: MAGNETIC RESONANCE IMAGING OF THE ABDOMEN WITH AND WITHOUT CONTRAST HISTORY: Liver lesions suspicious for metastasis TECHNIQUE: Magnetic resonance imaging of the abdomen was performed prior to and following the uneventful administration of intravenous Gadolinium contrast. Protocol: Liver Creatinine: 1.0 mg/dL Estimated GFR: 44 ml/min/1.73 meters squared Contrast: Eovist 17 mL COMPARISON: 10/06/2018 CT, 11/04/2015 MRI FINDINGS: Liver: No surface nodularity. Mild steatosis, - Bile ducts: Mild central intrahepatic and extrahepatic biliary ductal dilation without evidence of obstructing mass or choledocholithiasis - Focal liver lesions: There are multiple liver lesions (approximately 10-15). Most of these are within the right hepatic lobe, however there are at least 2 in the left hemiliver. The largest lesion is in segment 7 and measures 2.8 cm (series 10 image 16, previously 2.5 cm on 04/24/2015). A segment 6 capsular lesion measuring 1.1 cm unchanged (series 10 image 30). Multiple other smaller lesions in best visualized on the delayed postcontrast images were not well-visualized on the prior examination due to differences in technique. - Vasculature: Hepatic and portal veins are patent Gallbladder: Absent Pancreas: Normal Spleen: Normal Adrenals: Normal Kidneys: Right renal superior pole simple cyst. Other Findings: No ascites. Proximal colectomy changes with an ileocolonic anastomosis. Distal duodenal diverticulum. Multiple omental deposits are unchanged. Procedure Note Lexa Ferguson MD - 10/22/2018 EXAMINATION: MAGNETIC RESONANCE IMAGING OF THE ABDOMEN WITH AND WITHOUT CONTRAST HISTORY: Liver lesions suspicious for metastasis TECHNIQUE: Magnetic resonance imaging of the abdomen was performed prior to and following the uneventful administration of intravenous Gadolinium contrast. Protocol: Liver Creatinine: 1.0 mg/dL Estimated GFR: 44 ml/min/1.73 meters squared Contrast: Eovist 17 mL COMPARISON: 10/06/2018 CT, 11/04/2015 MRI FINDINGS: Liver: No surface nodularity. Mild steatosis, - Bile ducts: Mild central intrahepatic and extrahepatic biliary ductal dilation without evidence of obstructing mass or choledocholithiasis - Focal liver lesions: There are multiple liver lesions (approximately 10-15). Most of these are within the right hepatic lobe, however there are at least 2 in the left hemiliver. The largest lesion is in segment 7 and measures 2.8 cm (series 10 image 16, previously 2.5 cm on 04/24/2015). A segment 6 capsular lesion measuring 1.1 cm unchanged (series 10 image 30). Multiple other smaller lesions in best visualized on the delayed postcontrast images were not well-visualized on the prior examination due to differences in technique. - Vasculature: Hepatic and portal veins are patent Gallbladder: Absent Pancreas: Normal Spleen: Normal Adrenals: Normal Kidneys: Right renal superior pole simple cyst. Other Findings: No ascites. Proximal colectomy changes with an ileocolonic anastomosis. Distal duodenal diverticulum. Multiple omental deposits are unchanged. IMPRESSION: 1. Multiple hepatic lesions of concern the prior examination are consistent with metastases. In addition to these, there are numerous additional left and right hemiliver metastases that were not visualized on the prior examination due to differences in modality. 2. Omental deposits are consistent with metastases. Dictated by: Aram Reyna M.D. The radiology attending physician has personally reviewed this study, and had reviewed and/or edited this written report and agrees with it. Electronically signed by: Lexa Ferguson M.D. Eren Cr MD IMG MRI PROCEDURES Final Resu lt * POCT creatinine for contrast evaluation (10/21/2018 6:34 AM CDT) Creatinine POC 0.8 0.6 - 1.1 mg/dL [facility] Blood specimen (specimen) 10/21/2018 6:34 AM CDT 10/21/2018 6:34 AM CDT Narrative [facility] - 10/21/2018 2:40 PM CDT Eren Cr MD POINT OF CARE TEST ORDERABLES Final Result [facility] Department of Laboratories [place], [place] [id number] documented in this encounter Visit Diagnoses Diagnosis Secondary malignant neoplasm of liver (HCC) Secondary malignant neoplasm of liver Neuro-endocrine carcinoma (HCC) Other malignant neoplasm of unspecified site documented in this encounter Administered Medications Inactive Administered Medications - up to 3 most recent administrations Medication Order MAR Action Action Date Dose Rate Site gadoxetate (EOVIST) 0.25 mmol/mL (181.43 mg/mL) injection 10 mL 10 mL, intravenous, Once in imaging, contrast, Starting on Sat10/21/18 at 0810, For 1 dose, Indications: Magnetic Resonance Imaging of LiverIndications:Magnetic Resonance Imaging of Liver Given 10/21/2018 8:10 AM CDT 10 mL documented in this encounter Orders Medications Ordered That Brett ht Not Have Been Administered Count Last Ordered Date First Ordered Date gadoxetate (EOVIST) 0.25 mmo l/mL (181.43 mg/mL) injection 10 mL 1 10/21/2018 documented in this encounter Care Teams Manager Home Relationship Specialty Start Date End Date Julio César Briseno MD PCP - General 10/01/16 documented as of this encounter
--- OUTSIDE RECORDS SUMMARY | 2024-06-25 22:37 | XMS_ITS | Encounter Summary ---
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 No Please select the performing region: [facility] [[id number]] Please select the performing department: [facility] CAM RAD ONC [] # of visits: [address] Cr is referring patient for PRRT (Lutethra). Please contact patient via cell phone to schedule. 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) Procedures IA OCTREOTIDE INJECTION, DEPOT Octreotide 28 Day Cycles - Carcinoid Eren Cr MD [address] [facility] [address] [place] [address] Phone: tel: fax: [facility] [address] [address] Phone: tel: fax: Referral ID Status Reason Start Date Expiration Date V isits Requested Visits Authorized [id number] Authorized 11/28/2017 02/05/2025 1 150 Encounter Details Date Type Department Care Team (Late st Contact Info) Description 11/24/2018 10:00 AM CDT Office Visit [facility] [address] [facility] 7th [place] [address] [place] [address] Eren Cr MD [address] [facility] [address] [place] [address] Malignant neoplasm metastatic to liver (CMS/HCC); Neuroendocrine [...] on file 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 Gender Identity Not on file Sexual Orientation Straight 02/19/2021 9: 29 AM CDT Occupation Industry Job Start Date Job End Date retired Not on file Not on file Not on file documented as of this encounter Last Filed Vital Signs Vital Sign Reading Time Taken Comments Blood Pressure 135/74 11/24/2018 9:22 AM CDT Pulse 73 11/24/2018 9:22 AM CDT Temperature 36.4 ??C (97.5 ??F) 11/24/2018 9:22 AM CD T Respiratory Rate 16 11/24/2018 9:22 AM CDT Oxygen Saturation 97% 11/24/2018 9:22 AM CDT Inhaled Oxygen Concentration - - Weight 82.7 kg (182 lb 6.4 oz) 11/24/2018 9:22 A M CDT Height 160.1 cm (5' 3.03 ) 11/24/2018 9:22 AM CD T Body Mass Index 32.28 11/24/2018 9:22 AM CDT documented in this encounter Ordered Prescriptions Prescription Sig Dispense Quantity Refills Last Filled Start Date End Date octreotide (SandoSTATIN) 100 mcg/mL (1 mL) syringe Inject 1 mL (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) under the skin 3 (three) times a day as needed (flushing, cramping, diarrhea) 90 Syringe 5 11/25/2018 01/19/2019 octreotide (SandoSTATIN) 200 mcg/mL injection Inject 0.5 mL (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) under the skin 3 (three) times a day as needed (flushing, cramping, diarrhea) 45 mL 5 11/25/2018 11/25/2018 documented in this encounter Progress Notes * Tio Llanos MD - 11/24/2018 10:00 AM CDT MEDICAL ONCOLOGY OUTPATIENT ROV NOTE [...] also underwent right colectomy in [facility] [place] by Dr. Greyson Reeves. Biopsy revealed [...] PRRT due to disease progression on octreotide. 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 She is currently on monthly octreotide LAR injections. She presents today having recently obtained gallium dotatate PET scan which shows disease progression, and she is more symptomatic with diarrhea approximately 3 episodes per day, as well as several daily episodes of flushing. ?? She otherwise feels well and has no new complaints, denies fevers, chills, nausea vomiting, diarrhea, constipation or abdominal pain. Allergies: Allergies Allergen Reactions ??? Ezetimibe-Simvastatin Muscle pain and Unknown Muscle weakness ??? Ramipril Cough Medications: Current Outpatient Medications: ??? ascorbic acid, vitamin [...] DAILY NEEDED, Disp: , Rfl: ??? coenzyme [id number] E (CO Q-10, WITH VIT E,) 100-5 [...] mouth daily, Disp: , Rfl: 1 ??? olmesartan-hydrochlorothiazide (BENICAR HCT) 20-12.5 mg per tablet, Take 1 tablet by mouth daily, Disp: , Rfl: ??? simvastatin (ZOCOR) 20 mg tablet, , Disp: , Rfl: ??? wheat dextrin (BENEFIBER CLEAR SF, DEXTRIN, ORAL), , Disp: , Rfl: ??? cephalexin (KEFLEX) 500 mg capsule, cephalexin 500 mg capsule, Disp: , Rfl: ??? montelukast (SINGULAIR) 10 mg tablet, montelukast 10 mg tablet, Disp: , Rfl: ??? trospium (SANCTURA) 20 mg tablet, Take 20 mg by mouth., Disp: , Rfl: ??? valsartan-hydroCHLOROthiazide (DIOVAN-HCT) 80-12.5 mg per tablet, valsartan 80 mg-hydrochlorothiazide 12.5 mg tablet, Disp: , Rfl: ROS: As mentioned in the interval history. All other systems negative. Objective: Vitals BP 135/74 (BP Location: Right arm) Pulse 73 Temp 36.4 ??C (97.5 ??F) (Oral) Resp 16 Ht 160.1 cm (5' 3.03 ) Wt 82.7 kg (182 lb 6.4 oz) SpO2 97% BMI 32.28 kg/m?? Physical Exam: ECOG PS: 1 General: patient is a pleasant female in [...] hour(s)) CBC with auto differential Collection Time: 11/24/18 8:33 AM Result Value Ref Range WBC 5.4 3.8 - 9.8 K/cumm Hgb 14.2 12.1 - 15.1 g/dL Hct 41.1 36.1 - 44.3 % Plt 135 (L) 140 - 440 K/cumm MPV 8.3 6.8 - 10.4 fL RBC 4.84 3.90 - 5.00 M/cumm MCV 84.9 80.0 - 97.6 fL MCH 29.2 26.7 - 33.7 pg MCHC 34.4 32.7 - 35.5 g/dL RDW CV 13.5 11.8 - 14.6 % NRBC Abs 0.00 0.00 - 0.01 K/cumm Differential, auto Collection Time: 11/24/18 8:33 AM Result Value Ref Range Neutrophil absolute 3.2 1.8 - 6.6 K/cumm Lymphocytes absolute 1.4 1.2 - 3.3 K/cumm Monocyte absolute 0.6 0.2 - 1.2 K/cumm Eosinophils absolute 0.1 0.0 - 0.5 K/cumm Basophils, abs 0.0 0.0 - 0.2 K/cumm Neutrophils 59.2 % Lymphocytes 27.0 % Monocytes 11.4 % Eosinophils 1.7 % Basophils 0.7 % Comprehensive metabolic panel Collection Time: 11/24/18 8:35 AM Result Value Ref Range Sodium 141 135 - 145 mmol/L Potassium, pl 4.0 3.3 - 4.9 mmol/L Chloride 105 97 - 110 mmol/L CO2 29 22 - 32 mmol/L Anion Gap 7 2 - 15 mmol/L BUN 14 8 - 25 mg/dL Creatinine 0.84 0.60 - 1.10 mg/dL Glucose 67 (L) 70 - 199 mg/dL Calcium 11.0 (H) 8.5 - 10.3 mg/dL Bilirubin, total 0.8 0.1 - 1.2 mg/dL Protein, pl 6.8 6.5 - 8.5 g/dL Albumin 4.2 3.5 - 5.0 g/dL Alk phos 84 40 - 130 Units/L ALT 19 7 - 45 Units/L AST 25 10 - 45 Units/L Tumor Marker History Some values may be hidden. Unless noted otherwise, only the newest values recorded on each date aredisplayed. Tumor Markers Latest Ref Range 07/14/18 08/11/18 09/15/18 10/13/18 Chromogranin A <93 ng/mL 118 (A) 132 (A) 132 (A) 151 (A) (A) Abnormal value Comments are available for some flowsheets but are not being displayed. Imagin Ga Dotate PET: IMPRESSION: Postsurgical changes of exploratory laparotomy and omentectomy with diffuse metastatic disease in the chest, abdomen, and pelvis, including a lesion in the proximal left humerus. MRI abdomen 10/21/18: IMPRESSION: ??1. Multiple hepatic lesions of concern the prior examination are consistent with metastases. In addition to these, there are numerous additional left and right hemiliver metastases that were not visualized on the prior examination due to differences in modality. 2. Omental deposits are consistent with metastases. Assessment & Plan: Ms. 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 ??She comes in for continued treatment and follow-up. ??1.?Metastatic neuroendocrine tumor of the ilium: Recent MRI and gallium dotatate PET identifies disease progression, her chromogranin A is slightly up- trending, and she is more symptomatic in terms of diarrhea and flushing. Notably, her disease burden is not overwhelming however is progressive. We showed the visual images of her recent scans with the patient. We had an extensive discussionregarding subsequent treatment options at this time, specifically everolimus versus PRRT. We discussed the data concerning response rates, progression free survival as well as toxicities of the regimens, and the lack of survival benefit for either regimen. After further discussion, she preferences PRRT. Therefore, we will send a referral to Radiation Oncology to obtain approval for PRRT. Notably her last octreotide was 2 months ago so that is not a barrier to initiating PRRT. She will provide adiary of frequency of symptoms, and we will then prescribe p.r.n. short-acting octreotide in the int erim. ?? Will see her back on return to clinic pending the timeline for initiating PRRT. Active Treatment Plans for aL Chung Oncology Chemotherapy Treatment: Octreotide 28 Day Cycles - Carcinoid Current day: Day 1, Cycle 13 (Planned for 11/24/2018) Tio Llanos MD Cosigned by Eren Cr Jr., MD at 11/27/2018 11:13 AM CDT Associated attestation - Eren Cr MD - 11/27/2018 11:13 AM CDT I have seen and examined the patient on 11/24/2018 I agree with the findings and plan of care as documented in the fellow's note. 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 Duplicate order 04/18/2018 11/24/2018 octreotide (SandoSTATIN) 200 mcg/mL injection Inject 0.5 mL (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) under the skin 3 (three) times a day as needed (flushing, cramping, diarrhea) 11/25/2018 11/25/2018 documented as of this encounter Historical Medications * This list may reflect changes made after this encounter. olmesartan-hydr ochlorothiazide (BENICAR HCT) 20-12.5 mg per tabletIndicatio ns:hypertension Take 1 tablet by mouth every morning 05/14/2019 05/21/20 2 4 hydrocortisone (PROCTOSOL HC) 2.5 % rectal cream Proctosol HC 2.5 % topical cream perineal applicator APPLY RECTALLY THREE TIMES A DAY 0 valsartan-hydro CHLOROthiazide (DIOVAN-HCT) 80-12.5 mg per tablet valsartan 80 mg-hydrochlorothiaz shaq 12.5 mg tablet 9 montelukast (SINGULAIR) 10 mg tablet Take 1 tablet (10 mg total) by mouth as needed (allergies) 4 fluticasone propionate (FLONASE) 50 mcg/actuation nasal sprayIndication s:Allergic Rhinitis Administer 2 sprays into each nostril daily as needed for rhinitis or allergies 4 ergocalciferol (VITAMIN D) 50,000 unit capsule Vitamin D2 50,000 unit capsule 9 clotrimazole-be tamethasone (LOTRISONE) cream Apply 1 Application topically daily as needed (rash) 4 cephalexin (KEFLEX) 500 mg capsule cephalexin 500 mg capsule 9 cholestyramine (QUESTRAN) 4 gram packet cholestyramine (with sugar) 4 gram powder for susp in a packet 9 niacin/simvasta tin (SIMCOR ORAL) Simcor 1,000 mg-20 mg tablet,extended release 9 added in this encounter Orders Appointment Requests Count Last Ordered Date Fi rst Ordered Date [facility]N CLINIC APPOINTMENT REQUEST 1 019 documented in this encounter Care Teams Central Station Operator Relationship Specialty Start Date End Date Julio César Briseno MD PCP - General 10/01/16 documented as of this encounter
--- OUTSIDE RECORDS SUMMARY | 2024-06-25 22:37 | XMS_ITS | Encounter Summary ---
Author Organization [facility] Address [address] [place] [address] Care Team Providers Care Outsole Compressor Name Role Phone Julio César Briseno MD Primary Care Provider [phone] Eren Cr MD Unavailable [phone] Yohana Bowen MD Unavailable Sabrina Willard NP Unavailable [phone] Alejo Mi MD Unavailable [phone] Encounter Details Date Type Department Care Team (Late st Contact Info) Description 12/18/2018 Telephone [facility] Radiology [address] [address] [place] Social History Tobacco Use Types Packs/Day Years Used Date Smoking Tobacco: Never Smokeless Tobacco: Never Alcohol Use Standard Drinks/Week Comments Yes 1 (1 standard drink = 0.6 oz pur e alcohol) Comments No Sex and Gender Information Value Date Recorded Sex Assigned at Not on file 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 Gender Identity Not on file Sexual [...] COVID: Suspected 09/04/2021 09/04/2021 09/04/2021 4:06 PM RAZOR GRINDER COVID: Suspected 01/10/2022 01/10/2022 01/10/2022 5:55 PM CDT COVID: Suspected 06/13/2024 06/13/2024 06/13/2024 6:39 PM RAZOR GRINDER documented as of this encounter Care Teams Outsole Compressor Relationship Specialty Start Date End Date Julio César Briseno MD PCP - General 10/01/16 Eren Cr MD Referring Physician Medical Oncology 11/25/18 Yohana Bowen MD Radiation Oncologist Radiation Oncology 11/25/18 Sabrina Willard NP [address] [place] [address] Nurse Practitioner Medical Oncology 08/17/20 11/26/21 Alejo Mi MD [address] [place] [address] Referring Physician Nephrology 03/07/23 documented as of this encounter
--- OUTSIDE RECORDS SUMMARY | 2024-06-25 22:37 | XMS_ITS | Encounter Summary ---
Author Organization [facility] Address [address] [place] [address] Phone Care Team Providers Care Cherry Sorter Name Role Phone Julio César Briseno MD Primary Care Provider Eren Cr MD Unavailable [phone] Yohana Bowne MD Unavailable Encounter Details Date Type Department Care Team (Late st Contact Info) Description 11/25/2018 Orders Only [facility] Oncology [address] [place] [address] Roshni Gutierrez CMA Social History Tobacco Use Types Packs/Day Years Used Date Smoking Tobacco: Never Smokeless Tobacco: Never Alcohol Use Standard Drinks/Week Comments Yes 1 (1 standard drink = 0.6 oz pur e alcohol) Comments No Sex and Gender Information Value Date Recorded Sex Assigned at Not on file 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 Gender Identity Not on file Sexual Orientation Straight 02/19/2021 9: 29 AM CDT Occupation Industry Job Start Date Job End Date retired Not on file Not on file Not on file documented as of this encounter Progress Notes * Roshni Gutierrez MA - 11/25/2018 2:25 PM CDT Adam approved until 11/2019 approval# [id number] documented in this encounter Plan of Treatment Not on file documented as of this encounter Visit Diagnoses Not on filedocumented in this encounter Care Teams Cherry Sorter Relationship Specialty Start Date End Date Julio César Briseno MD PCP - General 10/01/16 Eren Cr MD Referring Physician Medical Oncology 11/25/18 Yohana Bowen MD Radiation Oncologist Radiation Oncology 11/25/18 documented as of this encounter
--- OUTSIDE RECORDS SUMMARY | 2024-06-25 22:37 | XMS_ITS | Encounter Summary ---
Author Organization [facility] Address [address] [place] [address] Phone Care Team Providers Care Roundsman Name Role Phone Julio César Briseno MD Primary Care Provider [phone] Encounter Details Date Type Department Care Team (Late st Contact Info) Description 09/01/2018 Telephone [facility] [address] [facility] 7th [place] [address] [place] [address] Eren Cr MD [address] [facility] [address] [place] [address] Social History Tobacco Use Types Packs/Day Years Used Date Smoking Tobacco: Never Smokeless Tobacco: Never Alcohol Use Standard Drinks/Week Comments Yes 1 (1 standard drink = 0.6 oz pur e alcohol) Comments No Sex and Gender Information Value Date Recorded Sex Assigned at Not on file Legal Sex Female 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 I spoke to Sabrina Willard NP and she said that if Ms. Chung is symptomatic, we can reschedule her to be scanned and seen earlier. Agata will speak to Ms. Chung and call us if they want to reschedule. TERIA TEAM LEADER documented in this encounter Plan of Treatment Not on file documented as of this encounter Visit Diagnoses Not on filedocumented in this encounter Care Teams Roundsman Relationship Specialty Start Date End Date Julio César Briseno MD PCP - General 10/01/16 documented as of this encounter
--- OUTSIDE RECORDS SUMMARY | 2024-06-25 22:37 | XMS_ITS | Encounter Summary ---
Author Organization [facility] Address [address] [place] [address] Care Team Providers Care Garage Laborer Name Role Phone Julio César Briseno MD Primary Care Provider Encounter Details Date Type Department Care Team (Late st Contact Info) Description 11/24/2018 Telephone [facility] Advanced Medicine Radiation Oncology [address] [facility] [place] [address] Yohana Bowen MD [address] [facility] [address] [place] [address] Social History Tobacco Use Types Packs/Day Years Used Date Smoking Tobacco: Never Smokeless Tobacco: Never Alcohol Use Standard Drinks/Week Comments Yes 1 (1 standard drink = 0.6 oz pur e alcohol) Comments No Sex and Gender Information Value Date Recorded Sex Assigned at Not on file 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 Leftvoicemail to patient requesting a call back to . documented in this encounter Plan of Treatment Not on file documented as of this encounter Visit Diagnoses Not on filedocumented in this encounter Care Teams Garage Laborer Relationship Specialty Start Date End Date Julio César Briseno MD PCP - General 10/01/16 documented as of this encounter
--- OUTSIDE RECORDS SUMMARY | 2024-06-25 22:37 | XMS_ITS | Encounter Summary ---
Author Organization [facility] Address [address] [place] [address] Phone Care Team Providers Care Pit Crew Support Worker Name Role Phone Julio César Briseno MD Primary Care Provider [phone] Encounter Details Date Type Department Care Team (Late st Contact Info) Description 08/18/2018 Orders Only [facility] Oncology [address] [place] [address] Eren Cr MD [address] [place] [address] Social History Tobacco Use Types Packs/Day Years Used Date Smoking Tobacco: Never Smokeless Tobacco: Never Alcohol Use Standard Drinks/Week Comments Yes 1 (1 standard drink = 0.6 oz pur e alcohol) Comments No Sex and Gender Information Value Date Recorded Sex Assigned at Not on file 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
--- OUTSIDE RECORDS SUMMARY | 2024-06-25 22:37 | XMS_ITS | Encounter Summary ---
Author Organization [facility] Address [address] [place] [address] Phone Care Team Providers Care Transportation Worker Name Role Phone Julio César Briseno MD Primary Care Provider [phone] 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) Procedures ID OCTREOTIDE INJECTION, DEPOT Octreotide 28 Day Cycles - Carcinoid Eren Cr MD [address] [facility] [address] [place] [address] Phone: tel: fax: [address] [address] Phone: tel: fax: Referral ID Status Reason Start Date Expiration Date V isits Requested Visits Authorized [id number] Authorized 11/28/2017 02/05/2025 1 150 Encounter Details Date Type Department Care Team (Late st Contact Info) Description 11/24/2018 9:00 AM CDT Lab [facility] Oncology [address] [facility] 7th [place] [address] [place] [id number] Malignant neoplasm metastatic to liver (CMS/HCC); Neuroendocrine carcinoma (CMS/HCC) Social History Tobacco Use Types Packs/Day Years Used Date Smoking Tobacco: Never Smokeless Tobacco: Never Alcohol Use Standard Drinks/Week Comments Yes 1 (1 standard drink = 0.6 oz pur e alcohol) Comments No Sex and Gender Information Value Date Recorded Sex Assigned at Not on file 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 Gender Identity Not on file Sexual Orientation Straight 02/19/2021 9: 29 AM CDT Occupation Industry Job Start Date Job End Date retired Not on file Not on file Not on file documented as of this encounter Plan of Treatment Not on file documented as of this encounter Procedures Procedure Name Priority Date/Time Associated Diagnosis Comments CHROMOGRANIN A Routine 11/24/2018 8:35 AM CDT Malignant neoplasm metastatic to liver (CMS/HCC) Neuroendocrine carcinoma (CMS/HCC) COMPREHENSIVE METABOLIC PANEL STAT 11/24/2018 8:35 AM CDT Malignant neoplasm metastatic to liver (CMS/HCC) Neuroendocrine carcinoma (CMS/HCC) DIFFERENTIAL AUTO STAT 11/24/2018 8:3 3 AM CDT Malignant neoplasm metastatic to liver (CMS/HCC) Neuroendocrine carcinoma (CMS/HCC) CBC WITH AUTO DIFFERENTIAL STAT 11/24/2018 8:33 AM CDT Malignant neoplasm metastatic to liver (CMS/HCC) Neuroendocrine carcinoma (CMS/HCC) documented in this encounter Results * (ABNORMAL) Comprehensive metabolic panel (11/24/2018 8:35 AM CDT) Sodium 141 135 - 145 mmol/L [facility] Potassium, pl 4.0 3.3 - 4.9 mmol/L [facility] Chloride 105 97 - 110 mmol/L [facility] CO2 29 22 - 32 mmol/L [facility] Anion gap 7 2 - 15 mmol/L [facility] BUN 14 8 - 25 mg/dL [facility] Creatinine 0.84 0.60 - 1.10 mg/dL [facility] Glucose 67(L) 70 - 199 mg/dL [facility] interpretive data was last revised 2017. Calcium 11.0(H) 8.5 - 10.3 mg/dL [facility] Bilirubin, total 0.8 0.1 - 1.2 mg/dL [facility] Protein, pl 6.8 6.5 - 8.5 g/dL [facility] Albumin 4.2 3.5 - 5.0 g/dL [facility] Alk phos 84 40 - 130 Units/L [facility] ALT 19 7 - 45 Units/L [facility] AST 25 10 - 45 Units/L [facility] Blood specimen (specimen) 11/24/2018 8:35 AM CDT 11/24/2018 8:49 AM CDT Narrative [facility] - 11/24/2018 9:20 AM CDT Eren Cr MD LAB BLOOD ORDERABLES Final Re sult [facility] Department [place] [address] * (ABNORMAL) Chromogranin A (11/24/2018 8:35 AM CDT) Chromogranin A 182(H) <93 ng/mL [facility] Comment: Impaired renal or hepatic function or treatment with proton pump inhibitors may result in artifactual elevations of Chromogranin A. A reagent change was implemented on date 11/13/2017. Measured chromogranin A concentrations were on average 7% higher using the new reagent formulation. However, for individual specimens the variation may exceed 7%. Upon request, samples previously submitted within the last six months can be retested using the new reagent formulation. ADDITIONAL INFORMATION This test was developed and its performance characteristics determined by [facility] in a manner consistent with CLIA requirements. [...] absence of malignant disease. Test Performed by: [facility] [address] [place] [address] Blood specimen (specimen) 11/24/2018 8:35 AM CDT 11/24/2018 8:52 AM CDT Dylan BLACK - 11/25/2018 4:12 PM CDT Eren Cr MD LAB BLOOD ORDERABLES Final Re sult [facility] Department [place] [address] * Differential, auto (11/24/2018 8:33 AM CDT) Neutrophil abs 3.2 1.8 - 6.6 K/cumm [facility] Comment:Testing performed by : [facility], [facility] [phone] Lymphocyte abs 1.4 1.2 - 3.3 K/cumm [facility] Comment:Testing performed by : [facility], [facility] [phone] Monocyte abs 0.6 0.2 - 1.2 K/cumm [facility] Comment:Testing performed by : [facility], [facility] [address] Eosinophil abs 0.1 0.0 - 0.5 K/cumm [facility] Comment:Testing performed by : [facility], [address] [place] [phone] Basophil abs 0.0 0.0 - 0.2 K/cumm [facility] Comment:Testing performed by : [facility], [address] [place] [phone] Neutrophil pct 59.2 % [facility] Comment: Interpretive Data Percent cell count reference ranges are not reported, since discordance with absolute values may lead to misinterpretation of CBC data. Current Interpretive Data was last revised on 2017. Testing performed by: [facility], [address] [place] [phone] Lymphocyte pct 27.0 % [facility] Comment: Interpretive Data Percent cell count reference ranges are not reported, since discordance with absolute values may lead to misinterpretation of CBC data. Current Interpretive Data was last revised on 2017. Testing performed by: [facility], [address] [place] [phone] Monocyte pct 11.4 % [facility] Comment:Testing performed by : [facility], [address] [place] [phone] Eosinophil pct 1.7 % [facility] Comment:Testing performed by : [facility], [address] [place] [phone] Basophil pct 0.7 % [facility] Comment:Testing performed by : [facility], [address] [place] [phone] Blood specimen (specimen) 11/24/2018 8:33 AM CDT 11/24/2018 8:37 AM CDT Narrative [facility] - 11/24/2018 8:40 AM CDT us Eren Cr MD LAB BLOOD ORDERABLES Final Re sult [facility] Department [place] [address] * (ABNORMAL) CBC with auto differential (11/24/2018 8:33 AM CDT) WBC 5.4 3.8 - 9.8 K/cumm [facility] Comment:Testing performed by : [facility], [address] [place] [address] Hgb 14.2 12.1 - 15.1 g/dL [facility] Comment:Testing performed by : [facility], [address] [place] [address] Hct 41.1 36.1 - 44.3 % [facility] Comment:Testing performed by : [facility], [address] [place] [address] Plt 135(L) 140 - 440 K/cumm [facility] Comment:Testing performed by : [facility], [address] [place] [address] MPV 8.3 6.8 - 10.4 fL [facility] Comment:Testing performed by : [place] [address] RBC 4.84 3.90 - 5.00 M/cumm [facility] Comment:Testing performed by : [place] [address] MCV 84.9 80.0 - 97.6 fL [facility] Comment:Testing performed by : [facility], [address] [place] [address] MCH 29.2 26.7 - 33.7 pg [facility] Comment:Testing performed by : [place] [address] MCHC 34.4 32.7 - 35.5 g/dL [facility] Comment:Testing performed by : [place] [address] RDW CV 13.5 11.8 - 14.6 % [facility] Comment:Testing performed by : [facility], [address] [place] [address] NRBC abs 0.00 0.00 - 0.01 K/cumm [facility] Comment:Testing performed by : [place] [address] Blood specimen (specimen) 11/24/2018 8:33 AM CDT 11/24/2018 8:37 AM CDT Narrative [facility] - 11/24/2018 8:40 AM CDT us Eren Cr MD LAB BLOOD ORDERABLES Final Re sult [facility] Department [place] [address] documented in this encounter Visit Diagnoses Diagnosis Malignant neoplasm metastatic to liver (HCC) Neuroendocrine carcinoma (HCC) Other malignant neoplasm of unspecified site documented in this encounter Orders Appointment Requests Count Last Ordered Date Fi rst Ordered Date ONCBCN LAB APPOINTMENT 1 11/24/2018 documented in this encounter Care Teams Transportation Worker Relationship Specialty Start Date End Date Julio César Briseno MD PCP - General 10/01/16 documented as of this encounter
--- OUTSIDE RECORDS SUMMARY | 2024-06-25 22:37 | XMS_ITS | Encounter Summary ---
Author Organization [facility] Address [address] [place] [address] Care Team Providers Care Marble Finisher Name Role Phone Julio César Briseno MD Primary Care Provider [phone] Reason for Referral * MRI/CAT/PET Scan (Routine) - Closed Specialty Diagnoses / Procedures Referred By Evelyne bowman Referred To Contact Radiology Diagnoses Malignant neoplasm metastatic to liver (HCC) Neuroendocrine carcinoma (HCC) Procedures PET/CT Ga-68 Dotatate Skull to Thigh Bailee Bobby NP Phone: tel: fax: [address] [phone] Referral ID Status Reason Start Date Expiration Date Visits Re quested Visits Authorized [id number] Closed 10/13/2018 04/23/2020 1 1 Reason for Visit * MRI/CAT/PET Scan (Routine) - Closed Specialty Diagnoses / Procedures Referred By Evelyne bowman Referred To Contact Radiology Diagnoses Malignant neoplasm metastatic to liver (HCC) Neuroendocrine carcinoma (HCC) Procedures PET/CT Ga-68 Dotatate Skull to Thigh Bailee Bobby NP Phone: tel: fax: [address] [phone] Referral ID Status Reason Start Date Expiration Date Visits Re quested Visits Authorized [id number] Closed 10/13/2018 04/23/2020 1 1 Encounter Details Date Type Department Care Team (Late st Contact Info) Description 11/19/2018 2:13 PM CDT - 11/19/2018 11:59 PM CDT Hospital Encounter [facility] [address] [place] [address] Kelvin Mcmillan MD [address] [place] [address] Bailee Bobby NP [address] [place] [address] Malignant neoplasm metastatic to liver (CMS/HCC); Neuroendocrine carcinoma (CMS/HCC) Discharge Disposition: Discharge to home or self care Social History Tobacco Use Types Packs/Day Years Used Date Smoking Tobacco: Never Smokeless Tobacco: Never Alcohol Use Standard Drinks/Week Comments Yes 1 (1 standard drink = 0.6 oz pur e alcohol) Comments No Sex and Gender Information Value Date Recorded Sex Assigned at Not on file 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 9 CHOLESTYRAMINE, BULK, MISC 1 tablet by Not Applicable route 9 coenzyme [id number] 100-5 mg-unit capsuleIndicatio ns:supplement Take 1 tablet by mouth back line cook before breakfast [address] (CYMBALTA) 30 [...] THIGH Schedule Routine, Read Routine (OP Routine) 11/19/2018 4:18 PM CDT Malignant neoplasm metastatic to liver (CMS/HCC) Neuroendocrine carcinoma (CMS/HCC) documented in this encounter Results * PET/CT Ga-68 Dotatate Skull to Thigh (11/19/2018 4:18 PM CDT) Anatomical Region Laterality Modality Positron Emissio n Tomography (PET) 11/19/2018 4:55 PM CDT Impressions 11/19/2018 4:59 PM CDT Postsurgical changes of exploratory laparotomy and omentectomy with diffuse metastatic disease in the chest, abdomen, and pelvis, including a lesion in the proximal left humerus. ?? Dictated by: Chidi Simon M.D. The radiology attending physician has personally reviewed this study, and had reviewed and/or edited this written report and agrees with it. Electronically signed by: Wili Durham M.D. Narrative 11/19/2018 4:59 PM CDT EXAMINATION: Ga-68 DOTATATE -PET/CT IMAGING DATE OF STUDY: ??11/19/2018 SCANNER: mCT RADIOPHARMACEUTICAL: 4.6 mCi Ga-68 dotatate i.v. ??Injection site: Right antecubital HISTORY: 68-year-old woman with well-differentiated neuroendocrine tumor status post exploratory laparotomy, bilateral salpingo-oophorectomy, partial omentectomy, and peritoneal biopsies on 10/03/2015. ??Currently on monthly octreotide injections. ??The study is requested for treatment monitoring during therapy. Subsequent treatment strategy. TECHNIQUE: ??After intravenous administration of Ga-68 dotatate, noncontrast CT images were obtained for attenuation correction and for fusion with emission PET images to allow for anatomical localization of PET findings. ??Emission PET images were then obtained. ??The study was interpreted on the [employer] workstation. ?? Scanned area: skull vertex to the proximal thighs; the time from injection of tracer to start of imaging for this scan position was 65 minutes. COMPARISON: CT chest abdomen and pelvis 10/06/2018 FINDINGS: There are multiple metastatic lesions throughout the body. ??In the left proximal humerus there is a focus of tracer uptake best seen on image 66/391. ??There are numerous small cervical lymph nodes of tracer uptake, for reference on image 108/391. ??Numerous pulmonary lesions are seen scattered through both lungs, for reference in the left upper lobe apicoposterior segment on image 125/391. ??Multiple liver metastases are also seen, the largest of which is in segment 7 on image 181/391. ??Multiple mesenteric and peritoneal deposits are seen. ??A prominent aortocaval node with increased uptake is seen on image 250/391. Additional CT findings: There are postsurgical changes of bilateral salpingo-oophorectomy, partial omentectomy, and peritoneal biopsy. Exophytic right kidney cyst. The gallbladder is surgically absent. Moderate atherosclerosis of a normal caliber abdominal aorta. Radiopaque material is seen in the vagina. Procedure Note Wili Durham MD - 11/19/2018 EXAMINATION: Ga-68 DOTATATE -PET/CT IMAGING DATE OF STUDY: 11/19/2018 SCANNER: mCT RADIOPHARMACEUTICAL: 4.6 mCi Ga-68 dotatate i.v. Injection site: Right antecubital HISTORY: 68-year-old woman with well-differentiated neuroendocrine tumor status post exploratory laparotomy, bilateral salpingo-oophorectomy, partial omentectomy, and peritoneal biopsies on 10/03/2015. Currently on monthly octreotide injections. The study is requested for treatment monitoring during therapy. Subsequent treatment strategy. TECHNIQUE: After intravenous administration of Ga-68 dotatate, noncontrast CT images were obtained for attenuation correction and for fusion with emission PET images to allow for anatomical localization of PET findings. Emission PET images were then obtained. The study was interpreted on the [employer] workstation. Scanned area: skull vertex to the proximal thighs; the time from injection of tracer to start of imaging for this scan position was 65 minutes. COMPARISON: CT chest abdomen and pelvis 10/06/2018 FINDINGS: There are multiple metastatic lesions throughout the body. In the left proximal humerus there is a focus of tracer uptake best seen on image 66/391. There are numerous small cervical lymph nodes of tracer uptake, for reference on image 108/391. Numerous pulmonary lesions are seen scattered through both lungs, for reference in the left upper lobe apicoposterior segment on image 125/391. Multiple liver metastases are also seen, the largest of which is in segment 7 on image 181/391. Multiple mesenteric and peritoneal deposits are seen. A prominent aortocaval node with increased uptake is seen on image 250/391. Additional CT findings: There are postsurgical changes of bilateral salpingo-oophorectomy, partial omentectomy, and peritoneal biopsy. Exophytic right kidney cyst. The gallbladder is surgically absent. Moderate atherosclerosis of a normal caliber abdominal aorta. Radiopaque material is seen in the vagina. IMPRESSION: Postsurgical changes of exploratory laparotomy and omentectomy with diffuse metastatic disease in the chest, abdomen, and pelvis, including a lesion in the proximal left humerus. Dictated by: Chidi Simon M.D. The radiology attending physician has personally reviewed this study, and had reviewed and/or edited this written report and agrees with it. Electronically signed by: Wili Durham M.D. Bailee Bobby BAKER CHEF IMG PET PROCEDURES Final Result documented in this encounter Visit Diagnoses Diagnosis Malignant neoplasm metastatic to liver (HCC) Neuroendocrine carcinoma (HCC) Other malignant neoplasm of unspecified site documented in this encounter Administered Medications Inactive Administered Medications - up to 3 most recent administrations Medication Order MAR Action Action Date Dose Rate Site diatrizoate meglumine-diatrizoate sodium (GASTROGRAFIN/MD-GASTROVIE W) 66-10 % solution 7 mL 7 mL, oral, Once in imaging, contrast, Starting on Sat11/19/18 at 1448, For 1 dose, Indications: Digestive System RadiographyIndications:Dig estive System Radiography Given 11/19/2018 3:47 PM CDT 7 mL Ga 68-dotatate injection 4.5 millicurie 4.5 millicurie, intravenous, Once in imaging, radiopharmaceutical, Starting on Sat11/19/18 at 1435, For 1 dose Given 11/19/2018 2:43 PM CDT 4.63 millicuries documented in this encounter Care Teams Marble Finisher Relationship Specialty Start Date End Date Julio César Briseno MD PCP - General 10/01/16 documented as of this encounter
--- OUTSIDE RECORDS SUMMARY | 2024-06-25 22:37 | XMS_ITS | Encounter Summary ---
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) Procedures GA OCTREOTIDE INJECTION, DEPOT Octreotide 28 Day Cycles - Carcinoid Eren Cr MD [address] [facility] [address] [place] [address] Phone: tel: fax: [facility] [address] [address] Phone: tel: fax: Referral ID Status Reason Start Date Expiration Date V isits Requested Visits Authorized [id number] Authorized 11/28/2017 02/05/2025 1 150 Encounter Details Date Type Department Care Team (Late st Contact Info) Description 09/15/2018 7:45 AM CDT Infusion [facility] Oncology [facility] Medicine [address] [place] [address] 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); Neuroendocrine carcinoma (CMS/HCC) Social History Tobacco Use Types Packs/Day Years Used Date Smoking Tobacco: Never Smokeless Tobacco: Never Alcohol Use Standard Drinks/Week Comments Yes 1 (1 standard drink = 0.6 oz pur e alcohol) Comments No Sex and Gender Information Value Date Recorded Sex Assigned at Not on file 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 Gender Identity Not on file Sexual Orientation Straight 02/19/2021 9: 29 AM CDT Occupation Industry Job Start Date Job End Date retired Not on file Not on file Not on file documented as of this encounter Last Filed Vital Signs Vital Sign Reading Time Taken Comments Blood Pressure 171/74 09/15/2018 7:39 AM CDT Pulse 72 09/15/2018 7:39 AM CDT Temperature 36.7 ??C (98.1 ??F) 09/15/2018 7:39 AM CD T Respiratory Rate 20 09/15/2018 7:39 AM CDT Oxygen Saturation 97% 09/15/2018 7:39 AM CDT Inhaled Oxygen Concentration - - Weight 83.7 kg (184 lb 9.6 oz) 09/15/2018 7:39 A M CDT Height - - Body Mass Index 33.23 01/01/2018 12:48 PM CDT documented in this encounter Nursing Notes * Jef Alcocer RN - 09/15/2018 7:45 AM CDT Tolerated Sandostatin injection well in right glute. Dc ambulatory. documented in this encounter Plan of [...] 30 mg 30 mg, intramuscular, Once, On 09/15/18 at 0815, For 1 dose, Refrigerate. For IM administration only. 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),Neuroendocrine carcinoma (HCC) Given 09/15/2018 8:13 AM CDT 30 mg Right Dorsogluteal/Butt ock documented in this encounter Orders Medications Ordered That Brett ht Not Have Been Administered Count Last Ordered Date First Ordered Date octreotide LAR (SandoSTATIN LAR) extended release intramuscular injection 30 mg 1 09/15/2018 Appointment Requests Count Last Ordered Date Fi rst Ordered Date ONCBCN INJECTION APPOINTMENT REQUEST 1 09/05 documented in this encounter Care Teams Bookmobile Librarian Relationship Specialty Start Date End Date Julio César Briseno MD PCP - General 10/01/16 documented as of this encounter
--- OUTSIDE RECORDS SUMMARY | 2024-06-25 22:37 | XMS_ITS | Encounter Summary ---
Author Organization [facility] Healthcare Address [address] [place] [address] Care Team Providers Care Sammying Machine Operator Name Role Phone Julio César Briseno MD Primary Care Provider [phone] Eren Cr MD Unavailable [phone] Yohana Bowen MD Unavailable Reason for Referral * Diagnostic Imaging (Routine) - Closed Specialty Diagnoses / Procedures Referred By Contac t Referred To Contact Diagnoses Neuroendocrine carcinoma (HCC) Procedures NM Kareem-177 Post Therapy SPECT Yohana Bowen MD Phone: tel: fax: [address] [address] Referral ID Status Reason Start Date Expiration Date Visits Re quested Visits Authorized [id number] Closed 12/05/2018 06/15/2020 1 1 Reason for Visit * Diagnostic Imaging (Routine) - Closed Specialty Diagnoses / Procedures Referred By Contellen t Referred To Contact Diagnoses Neuroendocrine carcinoma (HCC) Procedures NM Kareem-177 Post Therapy SPECT Yohana Bowen MD Phone: tel: fax: [address] [address] Referral ID Status Reason Start Date Expiration Date Visits Re quested Visits Authorized [id number] Closed 12/05/2018 06/15/2020 1 1 Encounter Details Date Type Department Care Team (Latest Contact Info) Description 12/24/2018 2:00 PM CDT - 12/24/2018 11:59 PM CDT Hospital Encounter [facility]) [address] [place] [address] Yohana Bowen MD [address] [facility] [address] [place] [address] Neuroendocrine carcinoma (CMS/HCC) Discharge Disposition: Discharge to home or self care Social History Tobacco Use Types Packs/Day Years Used Date Smoking Tobacco: Never Smokeless Tobacco: Never Alcohol Use Standard Drinks/Week Comments Yes 1 (1 standard drink = 0.6 oz pur e alcohol) Comments No Sex and Gender Information Value Date Recorded Sex Assigned at Not on file 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 4 diphenoxylate-a tropine (LOMOTIL) 2.5-0.025 [...] 9 octreotide (SandoSTATIN) 100 mcg/mL (1 mL) syringe Inject 1 mL (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) under the skin 3 (three) times a day as needed (flushing, cramping, diarrhea) 90 Syringe 5 11/25/2018 9 octreotide (SandoSTATIN) 50 mcg/mL (1 mL) [...] Procedure Name Priority Date/Time Associated Diagnosis Comments NM KAREEM-177 POST THERAPY SPECT/CT Schedule Routine, Read Routine (OP Routine) 12/24/2018 3:22 PM CDT Neuroendocrine carcinoma (CMS/HCC) documented in this encounter Results * NM Kareem-177 Post Therapy SPECT (12/24/2018 3:22 PM CDT) Anatomical Region Laterality Modality N/A Nuclear Medicine 12/24/2018 3:41 PM CDT Impressions 12/24/2018 4:39 PM CDT Radiotracer uptake in previously demonstrated somatostatin receptor positive disease in the abdomen or pelvis. ?? Nonvisualization of pulmonary lesions and cervical lymph nodes on today's examination might be secondary to their small size. Dictated by: Greyson Claire The radiology attending physician has personally reviewed this study, and had reviewed and/or edited this written report and agrees with it. Electronically signed by: Loretta English M.D. Narrative 12/24/2018 4:39 PM CDT EXAMINATION: ??Kareem-177 DOTATATE IMAGING (SPECT/CT) DATE OF STUDY: ??12/24/2018 HISTORY: 68-year-old woman with well-differentiated neuroendocrine tumor status post exploratory laparotomy, bilateral salpingo-oophorectomy, partial omentectomy, and peritoneal biopsies on 10/03/2015. ??Patient was then treated with octreotide. ??Recent dotatate PET/CT showed diffuse metastatic disease in the chest, abdomen, and pelvis. FINDINGS: ??A 200 mCi therapeutic dosage of Kareem-177 dotatate was administered intravenously on 12/24/2018 by the staff of the Department of Radiation Oncology. Tomographic (SPECT/CT) images of the chest, abdomen, and pelvis were obtained after the administration of the therapeutic dose of Kareem-[address] dotatate. The noncontrast CT images are used for fusion with emission SPECT images to allow for anatomical localization of SPECT findings). ?? Comparison was made with Ga-68 dotatate PET/CT dated 11/19/2018. Abnormal tracer uptake is noted in the somatostatin receptor-expressing neoplastic lesions in the abdomen and pelvis as well as the left humerus as seen on recent Ga-68 dotatate PET/CT. The abnormal cervical lymph nodes and pulmonary lesions seen on prior PET/CT do not demonstrate increased radiotracer uptake on this examination. There is expected Kareem-177 dotatate uptake in the kidneys, liver, spleen. ?? The noncontrast CT images demonstrate hypodense lesion in the right lobe of thyroid. ??Atherosclerotic calcifications of the aorta and its branches. ??Gallbladder surgically absent. ??Postoperative changes in the abdomen.. Procedure Note Loretta English MD - 12/24/2018 EXAMINATION: Kareem-177 DOTATATE IMAGING (SPECT/CT) DATE OF STUDY: 12/24/2018 HISTORY: 68-year-old woman with well-differentiated neuroendocrine tumor status post exploratory laparotomy, bilateral salpingo-oophorectomy, partial omentectomy, and peritoneal biopsies on 10/03/2015. Patient was then treated with octreotide. Recent dotatate PET/CT showed diffuse metastatic disease in the chest, abdomen, and pelvis. FINDINGS: A 200 mCi therapeutic dosage of Kareem-177 dotatate was administered intravenously on 12/24/2018 by the staff of the Department of Radiation Oncology. Tomographic (SPECT/CT) images of the chest, abdomen, and pelvis were obtained after the administration of the therapeutic dose of Kareem-177 dotatate. The noncontrast CT images are used for fusion with emission SPECT images to allow for anatomical localization of SPECT findings). Comparison was made with Ga-68 dotatate PET/CT dated 11/19/2018. Abnormal tracer uptake is noted in the somatostatin receptor-expressing neoplastic lesions in the abdomen and pelvis as well as the left humerus as seen on recent Ga-68 dotatate PET/CT. The abnormal cervical lymph nodes and pulmonary lesions seen on prior PET/CT do not demonstrate increased radiotracer uptake on this examination. There is expected Kareem-177 dotatate uptake in the kidneys, liver, spleen. The noncontrast CT images demonstrate hypodense lesion in the right lobe of thyroid. Atherosclerotic calcifications of the aorta and its branches. Gallbladder surgically absent. Postoperative changes in the abdomen.. IMPRESSION: Radiotracer uptake in previously demonstrated somatostatin receptor positive disease in the abdomen or pelvis. Nonvisualization of pulmonary lesions and cervical lymph nodes on today's examination might be secondary to their small size. Dictated by: Greyson Claire The radiology attending physician has personally reviewed this study, and had reviewed and/or edited this written report and agrees with it. Electronically signed by: Loretta English M.D. Yohana Bowen MD IM NM PROCEDURES Final Result documented in this encounter Visit Diagnoses Diagnosis Neuroendocrine carcinoma (HCC) Other malignant neoplasm of unspecified site documented in this encounter Care Teams Sammying Machine Operator Relationship Specialty Start Date End Date Julio César Briseno MD PCP - General 10/01/16 Eren Cr MD Referring Physician Medical Oncology 11/25/18 Yohana Bowen MD Radiation Oncologist Radiation Oncology 11/25/18 documented as of this encounter
--- OUTSIDE RECORDS SUMMARY | 2024-06-25 22:37 | XMS_ITS | Encounter Summary ---
Author Organization [facility] Healthcare Address [address] [place] [address] Care Team Providers Care Graphic Design Intern Name Role Phone Julio César Briseno MD Primary Care Provider [phone] Eren Cr MD Unavailable [phone] Yohana Bowen MD Unavailable Encounter Details Date Type Department Care Team (Late st Contact Info) Description 12/02/2018 Orders Only [facility] Radiation Oncology [address] [facility] [place] [address] Hien Soto, [place] Social History Tobacco Use Types Packs/Day Years Used Date Smoking Tobacco: Never Smokeless Tobacco: Never Alcohol Use Standard Drinks/Week Comments Yes 1 (1 standard drink = 0.6 oz pur e alcohol) Comments No Sex and Gender Information Value Date Recorded Sex Assigned at Not on file 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 Patient has been trying imodium with out success. documented in this encounter Plan of Treatment Not on file documented as of this encounter Visit Diagnoses Not on filedocumented in this encounter Care Teams Graphic Design Intern Relationship Specialty Start Date End Date Julio César Briseno MD PCP - General 10/01/16 Eren Cr MD Referring Physician Medical Oncology 11/25/18 Yohana Bowen MD Radiation Oncologist Radiation Oncology 11/25/18 documented as of this encounter
--- OUTSIDE RECORDS SUMMARY | 2024-06-25 22:37 | XMS_ITS | Encounter Summary ---
Author Organization [facility] Healthcare Address [address] [place] [address] Care Team Providers Care Commuter Pilot Name Role Phone Julio César Briseno MD Primary Care Provider [phone] Eren Cr MD Unavailable [phone] Yohana Bowen MD Unavailable Encounter Details Date Type Department Care Team (Late st Contact Info) Description 12/19/[address] 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 Gender Identity Not on file Sexual Orientation Straight 02/19/2021 9: 29 AM CDT Occupation Industry Job Start Date Job End Date retired Not on file Not on file Not on file documented as of this encounter Miscellaneous Notes * Telephone Encounter - Danae Ayers RN - 12/19/2018 4:44 PM CDT Preprocedure Phone Call Procedure Time Verified: Yes Arrival Time Verified: Yes Procedure Location Verified: Yes Medical History Reviewed: No NPO Status Reinforced: No(n/a for non-sedation case ) Ride and Caregiver Arranged: No(n/a for non-sedation case ) Patient Knows to Bring Current Medications: Yes Patient Knows to Bring CPAP: No(n/a for non-sedation case ) Is Patient on Home Ventilator?: No Is Patient on Blood Thinners?: No Discharge Planning Type of Residence: Private residence Patient expects to be discharged to:: Private residence documented in this encounter Plan of Treatment Not on file documented as of this encounter Visit Diagnoses Not on filedocumented in this encounter Care Teams Commuter Pilot Relationship Specialty Start Date End Date Julio César Briseno MD PCP - General 10/01/16 Eren Cr MD Referring Physician Medical Oncology 11/25/18 Yohana Bowen MD Radiation Oncologist Radiation Oncology 11/25/18 documented as of this encounter
--- OUTSIDE RECORDS SUMMARY | 2024-06-25 22:37 | XMS_ITS | Encounter Summary ---
Author Organization [facility] Address [address] [place] [address] Phone Care Team Providers Care Enterprise Resource Planning Consultant Name Role Phone Julio César Briseno MD Primary Care Provider [phone] Eren Cr MD Unavailable [phone] Yohana Bowen MD Unavailable Encounter Details Date Type Department Care Team (Late st Contact Info) Description 12/10/2018 Orders Only [facility] Oncology [address] [place] [address] Mayela Williamson RN Malignant neoplasm metastatic to liver (CMS/HCC); Neuroendocrine carcinoma (CMS/HCC) Social History Tobacco Use Types Packs/Day Years Used Date Smoking Tobacco: Never Smokeless Tobacco: Never Alcohol Use Standard Drinks/Week Comments Yes 1 (1 standard drink = 0.6 oz pur e alcohol) Comments No Sex and Gender Information Value Date Recorded Sex Assigned at Not on file 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
--- OUTSIDE RECORDS SUMMARY | 2024-06-25 22:37 | XMS_ITS | Encounter Summary ---
Author Organization [facility] Healthcare Address [address] [place] [address] Care Team Providers Care Radar Scientist Name Role Phone Julio César Briseno MD Primary Care Provider [phone] Encounter Details Date Type Department Care Team (Late st Contact Info) Description 11/24/2018 Telephone [facility] Advanced Medicine Radiation Oncology [address] [facility] [place] [address] Yohana Bowen MD [address] [facility] [address] [place] [address] Social History Tobacco Use Types Packs/Day Years Used Date Smoking Tobacco: Never Smokeless Tobacco: Never Alcohol Use Standard Drinks/Week Comments Yes 1 (1 standard drink = 0.6 oz pur e alcohol) Comments No Sex and Gender Information Value Date Recorded Sex Assigned at Not on file 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 Patient scheduled appointment with on 12/02 at 9:00am. Records in [facility], patient aware. documented in this encounter Plan of Treatment Not on file documented as of this encounter Visit Diagnoses Not on filedocumented in this encounter Care Teams Radar Scientist Relationship Specialty Start Date End Date Julio César Briseno MD PCP - General 10/01/16 documented as of this encounter
--- OUTSIDE RECORDS SUMMARY | 2024-06-25 22:37 | XMS_ITS | Encounter Summary ---
Author Organization [facility] Address [address] [place] [address] Phone Care Team Providers Care Smoking Pipe Mounter Name Role Phone Julio César Briseno MD Primary Care Provider [phone] Encounter Details Date Type Department Care Team (Late st Contact Info) Description 10/13/2018 Orders Only [facility] Oncology [address] 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
--- OUTSIDE RECORDS SUMMARY | 2024-06-25 22:37 | XMS_ITS | Encounter Summary ---
Author Organization [facility] Healthcare Address [address] [place] [address] Care Team Providers Care Appliance Painter And Refinisher Name Role Phone Julio César Briseno MD Primary Care Provider [phone] Eren Cr MD Unavailable [phone] Yohana Bowen MD Unavailable Reason for Referral * Diagnostic Imaging (Routine) - Closed Specialty Diagnoses / Procedures Referred By Evelyne bowman Referred To Contact Diagnoses Neuroendocrine carcinoma (HCC) Procedures NM Jody-177 Post Therapy SPECT Yohana Bowen MD Phone: tel: fax: [address] [address] Referral ID Status Reason Start Date Expiration Date Visits Re quested Visits Authorized [id number] Closed 12/05/2018 06/15/2020 1 1 * Diagnostic Imaging (Routine) - Closed Specialty Diagnoses / Procedures Referred By Evelyne bowman Referred To Contact Radiology Diagnoses Neuroendocrine carcinoma (HCC) Procedures IR PICC Line Placement > 5 Years Yohana Bowen MD Phone: tel: fax: [address] [address] Referral ID Status Reason Start Date Expiration Date Visits Re quested Visits Authorized [id number] Closed 12/05/2018 06/15/2020 1 1 Encounter Details Date Type Department Care Team (Late st Contact Info) Description 12/05/2018 Orders Only [facility] Advanced Medicine Radiation Oncology [address] [facility] [place] [address] Hien Soto RN Neuroendocrine carcinoma (CMS/HCC) (Primary Dx) Social History Tobacco Use Types Packs/Day Years Used Date Smoking Tobacco: Never Smokeless Tobacco: Never Alcohol Use Standard Drinks/Week Comments Yes 1 (1 standard drink = 0.6 oz pur e alcohol) Comments No Sex and Gender Information Value Date Recorded Sex Assigned at Not on file 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 NPO 6 hours prior to procedure, patient will need a van driver helper. If on any blood thinners, stop taking 24 to 48 hours prior. If on Xarelto or Plavix, must stop taking 4 to 5 days prior. 12/24/18: MIKEY Saha arrive at 0700. CBC and Immunodeficency labs ordered per study. SPECT CT at [facility] 2nd floor, arrive at 1340, scan at 1400. NO Prep. Instructed to get injection 4 to 24 hours post PRRT Lodging Needed: no Patient aware of ALL appt and verbalized understanding. Notified Medical Oncology Dr. Cr of [facility]. documented in this encounter Plan of Treatment Not on file documented as of this encounter Results * NM Jody-177 Post Therapy SPECT (12/24/2018 3:22 PM CDT) [...] M.D. Narrative 12/24/2018 4:39 PM CDT EXAMINATION: ??Jody-177 DOTATATE IMAGING (SPECT/CT) DATE OF STUDY: ??12/24/2018 HISTORY: 68-year-old woman with well-differentiated neuroendocrine tumor status post exploratory laparotomy, bilateral salpingo-oophorectomy, partial omentectomy, and peritoneal biopsies on 10/03/2015. ??Patient was then treated with octreotide. ??Recent dotatate PET/CT showed diffuse metastatic disease in the chest, abdomen, and pelvis. FINDINGS: ??A 200 mCi therapeutic dosage of Jody-177 dotatate was administered intravenously on 12/24/2018 by the staff of the Department of Radiation Oncology. Tomographic (SPECT/CT) images of the chest, abdomen, and pelvis were obtained after the administration of the therapeutic dose of Jody-[address] images are used [...] uptake on this examination. There is expected Jody-177 dotatate uptake in the kidneys, liver, spleen. ?? The noncontrast CT images demonstrate hypodense lesion in the right lobe of thyroid. ??Atherosclerotic calcifications of the aorta and its branches. ??Gallbladder surgically absent. ??Postoperative changes in the abdomen.. Procedure Note Loretta English MD - 12/24/2018 EXAMINATION: Jody-177 DOTATATE IMAGING (SPECT/CT) DATE OF STUDY: 12/24/2018 HISTORY: 68-year-old woman with well-differentiated neuroendocrine tumor status post exploratory laparotomy, bilateral salpingo-oophorectomy, partial omentectomy, and peritoneal biopsies on 10/03/2015. Patient was then treated with octreotide. Recent dotatate PET/CT showed diffuse metastatic disease in the chest, abdomen, and pelvis. FINDINGS: A 200 mCi therapeutic dosage of Jody-177 dotatate was administered intravenously on 12/24/2018 by the staff of the Department of Radiation Oncology. Tomographic (SPECT/CT) images of the chest, abdomen, and pelvis were obtained after the administration of the therapeutic dose of Jody-[address]ate[address] The noncontrast CT images are used [...] uptake on this examination. There is expected Jody-177 dotatate uptake in the kidneys, liver, spleen. [...] it. Electronically signed by: Loretta English M.D. us Yohana Bowen MD IM NM PROCEDURES Final Result * Immune deficiency profile (12/24/2018 7:58 AM CDT) CD4 pct 31 31 - 64 % [facility] CD4 Absolute 390 365 - 1,294 cells/mcL [facility] CD8 pct 28 12 - 40 % [facility] CD8 Absolute 353 187 - 781 cells/mcL [facility] CD4/CD8 ratio 1.1 0.9 - 4.4 [facility] Blood specimen (specimen) 12/24/2018 7:58 AM CDT 12/24/2018 1:44 PM CDT us Yohana Bowen MD LAB BLOOD ORDERABLES Final Resul t Performing Organization Address City/[facility] Co de Phone Number [facility] Department [place] [address] * (ABNORMAL) CBC with auto differential (12/24/2018 7:58 AM CDT) [facility] WBC 6.0 3.8 - 9.9 K/cumm [facility] Hgb 13.1 11.9 - 15.5 g/dL [facility] Hct 39.6 35.6 - 45.5 % [facility] Plt 138(L) 150 - 400 K/cumm [facility] MPV 10.9 9.1 - 12.3 fL [facility] RBC 4.57 3.90 - 5.20 M/cumm [facility] MCV 86.7 81.3 - 96.4 fL [facility] MCH 28.7 27.1 - 33.3 pg [facility] MCHC 33.1 32.3 - 35.7 g/dL [facility] RDW CV 13.1 11.1 - 14.9 % [facility] RDW SD 40.9 35.7 - 48.1 fL [facility] NRBC abs 0.00 0.00 - 0.01 K/cumm [facility] Blood specimen (specimen) 12/24/2018 7:58 AM CDT 12/24/2018 1:45 PM CDT us Yohana Bowen MD LAB BLOOD ORDERABLES Final Resul t Performing Organization Address City/[facility]/ZIP Co de Phone Number [facility] Department [place] [address] * IR PICC Line Placement > 5 Years (12/23/2018 11:10 AM CDT) Anatomical Region Laterality Modality Body N/A Radio Fluoroscop y 12/23/2018 12:0 6 PM CDT Impressions 12/23/2018 12:06 PM CDT Successful nontunneled catheter placement. PLAN: The catheter is ready for immediate use. ??When treatment is completed, this catheter can be removed at the bedside according to standard hospital protocol. ?? Electronically signed by: Jeet Richardson 12/23/2018 12:06 PM CDT EXAMINATION: ??NONTUNNELED CENTRAL VENOUS CATHETER PLACEMENT (STD) HISTORY: 68-year-old female with neuroendocrine tumor referred for PICC placement for Lutathera treatment. PROVIDER PRESENCE: Jeet Welch PA-C, was present from the beginning to the end of the procedure. ?? SEDATION: Pressure of no sedation TECHNIQUE: ?? The risks, benefits and alternatives were discussed and informed consent was obtained. ??Prior to beginning the procedure, [place] Protocol was used to confirm the patient's identity and planned procedure. ??Fluoroscopy time has been recorded in the electronic medical record. Maximum sterile barriers including cap, mask, hand hygiene, sterile gloves, sterile gown, large sterile drape and 2% chlorhexidine for cutaneous antisepsis were used. ??The skin over the right basilic vein was sterilely prepped, draped and infiltrated [...] tract, a dual lumen PICC (trimmed to 40 cm) was inserted over the guidewire. The catheter was flushed with 100U/ml heparin and secured in place. A sterile dressing was applied. ?? ESTIMATED BLOOD LOSS: Minimal. CONDITION: Stable DISCHARGED TO: outpatient recovery. FINDINGS: The final fluoroscopic image demonstrates the catheter with its tip at the cavoatrial junction. ??No complications are seen. Procedure Note Jeet Welch PA - 12/23/2018 EXAMINATION: NONTUNNELED CENTRAL VENOUS CATHETER PLACEMENT (STD) HISTORY: 68-year-old female with neuroendocrine tumor referred for PICC placement for Lutathera treatment. PROVIDER PRESENCE: Jeet Welch PA-C, was present from the beginning to the end of the procedure. SEDATION: Pressure of no sedation TECHNIQUE: The risks, benefits and alternatives were discussed and informed consent was obtained. Prior to beginning the procedure, [place] Protocol was used to confirm the patient's identity and planned procedure. Fluoroscopy time has been recorded in the electronic medical record. Maximum sterile barriers including cap, mask, hand hygiene, sterile gloves, sterile gown, large sterile drape and 2% chlorhexidine for cutaneous antisepsis were used. The skin over the right basilic vein was sterilely prepped, draped and infiltrated [...] tract, a dual lumen PICC (trimmed to 40 cm) was inserted over the guidewire. The catheter was flushed with 100U/ml heparin and secured in place. A sterile dressing was applied. ESTIMATED BLOOD LOSS: Minimal. CONDITION: Stable DISCHARGED TO: outpatient recovery. FINDINGS: The final fluoroscopic image demonstrates the catheter with its tip at the cavoatrial junction. No complications are seen. IMPRESSION: Successful nontunneled catheter placement. PLAN: The catheter is ready for immediate use. When treatment is completed, this catheter can be removed at the bedside according to standard hospital protocol. Electronically signed by: Jeet Welch Yohana Bowen MD IMG IR PROCEDURES Final Result documented in this encounter Visit Diagnoses Diagnosis Neuroendocrine carcinoma (HCC)- Primary Other malignant neoplasm of unspecified site 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 documented in this encounter Care Teams Appliance Painter And Refinisher Relationship Specialty Start Date End Date Julio César Briseno MD PCP - General 10/01/16 Eren Cr MD Referring Physician Medical Oncology 11/25/18 Yohana Bowen MD Radiation Oncologist Radiation Oncology 11/25/18 documented as of this encounter
--- OUTSIDE RECORDS SUMMARY | 2024-06-25 22:37 | XMS_ITS | Encounter Summary ---
Author Organization [facility] Address [address] [place] [address] Phone Care Team Providers Care Heating Fixture Tender Name Role Phone Julio César Briseno MD Primary Care Provider [phone] Reason for Referral * Diagnostic Imaging (Routine) - Closed Specialty Diagnoses / Procedures Referred By Contac t Referred To Contact Radiology Diagnoses 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) Procedures MRI Abdomen Liver W WO Contrast Eren Cr MD Phone: tel: fax: [address] [address] Referral ID Status Reason Start Date Expiration Date Visits Re quested Visits Authorized [id number] Closed 10/13/2018 04/23/2020 1 1 Encounter Details Date Type Department Care Team (Late st Contact Info) Description 10/13/2018 Orders Only [facility] Oncology [address] 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 Gender Identity Not on file Sexual Orientation Straight 02/19/2021 9: 29 AM CDT Occupation Industry Job Start Date Job End Date retired Not on file Not on file Not on file documented as of this encounter Plan of Treatment Not on file documented as of this encounter Results * MRI Abdomen Liver [...] Diagnoses Diagnosis Secondary malignant neoplasm of liver (HCC)- Primary Secondary malignant neoplasm of liver Neuro-endocrine carcinoma (HCC) Other malignant neoplasm of unspecified site Secondary malignant neoplasm of liver (HCC) Secondary malignant neoplasm of liver Neuro-endocrine carcinoma (HCC) Other malignant neoplasm of unspecified site documented in this encounter Care Teams Heating Fixture Tender Relationship Specialty Start Date End Date Julio César Briseno MD PCP - General 10/01/16 documented as of this encounter
--- OUTSIDE RECORDS SUMMARY | 2024-06-25 22:37 | XMS_ITS | Encounter Summary ---
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) Procedures ID OCTREOTIDE INJECTION, DEPOT Octreotide 28 Day Cycles - Carcinoid Eren Cr MD [address] [facility] [address] [place] [address] Phone: tel: fax: [address] [address] Phone: tel: fax: Referral ID Status Reason Start Date Expiration Date V isits Requested Visits Authorized [id number] Authorized 11/28/2017 02/05/2025 1 150 Encounter Details Date Type Department Care Team (Late st Contact Info) Description 09/15/2018 6:45 AM CDT Lab [facility] Oncology [address] [facility] Advanced [facility] 7th [place] [address] [place] [id number] Malignant neoplasm metastatic to liver (CMS/HCC); Neuroendocrine carcinoma (CMS/HCC) Social History Tobacco Use Types Packs/Day Years Used Date Smoking Tobacco: Never Smokeless Tobacco: Never Alcohol Use Standard Drinks/Week Comments Yes 1 (1 standard drink = 0.6 oz pur e alcohol) Comments No Sex and Gender Information Value Date Recorded Sex Assigned at Not on file Legal 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 Female 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 Gender Identity Not on file Sexual Orientation Straight 02/19/2021 9: 29 AM CDT Occupation Industry Job Start Date Job End Date retired Not on file Not on file Not on file documented as of this encounter Plan of Treatment Not on file documented as of this encounter Procedures Procedure Name Priority Date/Time Associated Diagnosis Comments CHROMOGRANIN A Routine 09/15/2018 6:45 AM CDT Malignant neoplasm metastatic to liver (CMS/HCC) Neuroendocrine carcinoma (CMS/HCC) VITAMIN D 25 HYDROXY Routine 09/15/2018 6:45 AM CDT Malignant neoplasm metastatic to liver (CMS/HCC) Neuroendocrine carcinoma (CMS/HCC) COMPREHENSIVE METABOLIC PANEL STAT 09/15/2018 6:45 AM CDT Malignant neoplasm metastatic to liver (CMS/HCC) Neuroendocrine carcinoma (CMS/HCC) DIFFERENTIAL AUTO STAT 09/15/2018 6:4 3 AM CDT Malignant neoplasm metastatic to liver (CMS/HCC) Neuroendocrine carcinoma (CMS/HCC) CBC WITH AUTO DIFFERENTIAL STAT 09/15/2018 6:43 AM CDT Malignant neoplasm metastatic to liver (CMS/HCC) Neuroendocrine carcinoma (CMS/HCC) documented in this encounter Results * (ABNORMAL) Comprehensive metabolic panel (09/15/2018 6:45 AM CDT) Sodium 143 135 - 145 mmol/L [facility] Potassium, pl 4.4 3.3 - 4.9 mmol/L [facility] Chloride 107 97 - 110 mmol/L [facility] CO2 29 22 - 32 mmol/L [facility] Anion gap 7 2 - 15 mmol/L [facility] BUN 12 8 - 25 mg/dL [facility] Creatinine 0.87 0.60 - 1.10 mg/dL [facility] Glucose 148 70 - 199 mg/dL [facility] 2017. Calcium 10.2 8.5 - 10.3 mg/dL [facility] Bilirubin, total 0.4 0.1 - 1.2 mg/dL [facility] Protein, pl 6.2(L) 6.5 - 8.5 g/dL [facility] Albumin 4.0 3.5 - 5.0 g/dL [facility] Alk phos 76 40 - 130 Units/L [facility] ALT 16 7 - 45 Units/L [facility] AST 20 10 - 45 Units/L [facility] Blood specimen (specimen) 09/15/2018 6:45 AM CDT 09/15/2018 6:51 AM CDT Narrative [facility] - 09/15/2018 7:34 AM CDT us Eren Cr MD LAB BLOOD ORDERABLES Final Re sult [facility] [address] [facility] [place] [address] * (ABNORMAL) Chromogranin A (09/15/2018 6:45 AM CDT) Chromogranin A 132(H) <93 ng/mL [facility] Comment: Impaired renal or hepatic [...] and its performance characteristics determined by [facility] in a manner consistent with CLIA [...] of malignant disease. Test Performed by: [facility] [address] [place] [address] Blood specimen (specimen) 09/15/2018 6:45 AM CDT 09/15/2018 7:07 AM CDT N[facility]ative [facility] - 09/17/2018 9:45 AM CDT Eren Cr MD LAB BLOOD ORDERABLES Final Re sult Performing Organization Address [facility] Co de Phone Number [facility] [place] [address] * Vitamin D 25 hydroxy (09/15/2018 6:45 AM CDT) Pathologist [facility] Vitamin D 25-OH 55 30 - 80 ng/mL [facility] Blood specimen (specimen) 09/15/2018 6:45 AM CDT 09/15/2018 6:51 AM CDT Narrative [facility] - 09/15/2018 11:20 AM CDT Eren Cr MD LAB BLOOD ORDERABLES Final Re sult Performing Organization Address [facility] Co de Phone Number [facility] [employer] [place] [address] * Differential, auto (09/15/2018 6:43 AM CDT) Neutrophil abs 3.0 1.8 - 6.6 K/cumm [facility] Comment:Testing performed by : [facility], [address] [place] [phone] Lymphocyte abs 1.2 1.2 - 3.3 K/cumm [facility] Comment:Testing performed by : [facility], [address] [place] [phone] Monocyte abs 0.4 0.2 - 1.2 K/cumm [facility] Comment:Testing performed by : [facility], [address] [place] [phone] Eosinophil abs 0.1 0.0 - 0.5 K/cumm [facility] Comment:Testing performed by : [facility], [address] [place] [phone] Basophil abs 0.0 0.0 - 0.2 K/cumm [facility] Comment:Testing performed by : [facility], [address] [place] [phone] Neutrophil pct 62.4 % [facility] Comment: Interpretive Data Percent cell count reference ranges are not reported, since discordance with absolute values may lead to misinterpretation of CBC data. Current Interpretive Data was last revised on 2017. Testing performed by: [address] [phone] Lymphocyte pct 25.2 % [facility] Comment: Interpretive Data Percent cell count reference ranges are not reported, since discordance with absolute values may lead to misinterpretation of CBC data. Current Interpretive Data was last revised on 2017. Testing performed by: [facility], [address] [place] [phone] Monocyte pct 8.7 % [facility] Comment:Testing performed by : [address] [phone] Eosinophil pct 2.7 % [facility] Comment:Testing performed by : [facility], [address] [place] [phone] Basophil pct 1.0 % [facility] Comment:Testing performed by : [facility], [address] [place] [phone] Blood specimen (specimen) 09/15/2018 6:43 AM CDT 09/15/2018 6:48 AM CDT Narrative [facility] - 09/15/2018 7:02 AM CDT us Eren Cr MD LAB BLOOD ORDERABLES Final Re sult [facility] One [facility] Department [place] [address] * (ABNORMAL) CBC with auto differential (09/15/2018 6:43 AM CDT) WBC 4.8 3.8 - 9.8 K/cumm [facility] Comment:Testing performed by : [facility], [address] [place] [phone] Hgb 13.6 12.1 - 15.1 g/dL [facility] Comment:Testing performed by : [facility], [address] [place] [phone] Hct 40.1 36.1 - 44.3 % [facility] Comment:Testing performed by : [facility], [address] [place] [phone] Plt 127(L) 140 - 440 K/cumm [facility] Comment:Testing performed by : [address] [address] MPV 7.6 6.8 - 10.4 fL [facility] Comment:Testing performed by : [facility], [address] [place] [phone] RBC 4.64 3.90 - 5.00 M/cumm [facility] Comment:Testing performed by : [address] [phone] MCV 86.4 80.0 - 97.6 fL [facility] Comment:Testing performed by : [address] [address] MCH 29.3 26.7 - 33.7 pg [facility] Comment:Testing performed by : [facility], [address] [place] [phone] MCHC 33.9 32.7 - 35.5 g/dL [facility] Comment:Testing performed by : [facility], [address] [place] [phone] RDW CV 13.6 11.8 - 14.6 % [facility] Comment:Testing performed by : [facility], [address] [place] [phone] NRBC abs 0.00 0.00 - 0.01 K/cumm [facility] Comment:Testing performed by : [facility], [address] [place] [phone] Blood specimen (specimen) 09/15/2018 6:43 AM CDT 09/15/2018 6:48 AM CDT Narrative [facility] - 09/15/2018 7:02 AM CDT us Eren Cr MD LAB BLOOD ORDERABLES Final Re sult [facility] One [facility] [place] [address] documented in this encounter Visit Diagnoses Diagnosis Malignant neoplasm metastatic to liver (HCC) Neuroendocrine carcinoma (HCC) Other malignant neoplasm of unspecified site documented in this encounter Orders Appointment Requests Count Last Ordered Date Fi rst Ordered Date ONCBCN LAB APPOINTMENT 1 09/15/2018 documented in this encounter Care Teams Portfolio Accountant Relationship Specialty Start Date End Date Julio César Briseno MD PCP - General 10/01/16 documented as of this encounter
--- OUTSIDE RECORDS SUMMARY | 2024-06-25 22:37 | XMS_ITS | Encounter Summary ---
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 (HCC) Neuroendocrine carcinoma (HCC) Procedures PET/CT Ga-68 Dotatate Skull to Thigh Bailee Bobby NP Phone: tel: fax: [address] [address] Referral ID Status Reason Start Date Expiration Date Visits Re quested Visits Authorized [id number] Closed 10/13/2018 04/23/2020 1 1 Reason for Visit * Episode Based Medications (Routine) - Authorized Specialty Diagnoses / Procedures Referred By Contellen t Referred To Contact Oncology Diagnoses Neuroendocrine carcinoma (HCC) Malignant neoplasm metastatic to liver (HCC) Procedures CA OCTREOTIDE INJECTION, DEPOT Octreotide 28 Day Cycles - Carcinoid Eren Cr MD [address] [facility] [address] [place] [address] Phone: tel: fax: [facility] [address] [place] [phone] Phone: tel: fax: Referral ID Status Reason Start Date Expiration Date V isits Requested Visits Authorized [id number] Authorized 11/28/2017 02/05/2025 1 150 Encounter Details Date Type Department Care Team (Late st Contact Info) Description 10/13/2018 10:15 AM CDT Office Visit [facility] Oncology [address] 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 Gender Identity Not on file Sexual Orientation Straight 02/19/2021 9: 29 AM CDT Occupation Industry Job Start Date Job End Date retired Not on file Not on file Not on file documented as of this encounter Last Filed Vital Signs Vital Sign Reading Time Taken Comments Blood Pressure 125/71 10/13/2018 10:01 AM CDT Pulse 64 10/13/2018 10:01 AM CDT Temperature 36.4 ??C (97.5 ??F) 10/13/2018 10:01 AM C DT Respiratory Rate 16 10/13/2018 10:01 AM CDT Oxygen Saturation 99% 10/13/2018 10:01 AM CDT Inhaled Oxygen Concentration - - Weight 83.5 kg (184 lb) 10/13/2018 10:01 AM CDT Height - - Body Mass Index 33.12 01/01/2018 12:48 PM CDT documented in this encounter Progress Notes * Bialee Bobby, ERP CONSULTANT - 10/13/2018 10:15 AM CDT MEDICAL ONCOLOGY OUTPATIENT ROV NOTE La Chung : 1950 DATE OF VISIT: 10/13/18 Oncology History TREATMENT HISTORY: 1. CT abdomen [...] time, she also underwent right colectomy in [facility] OR by Dr. Greyson Reeves. Biopsy [...] mediastinal lymphadenopathy consistent with stable metastatic disease. 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 She is currently on monthly octreotide LAR injections. She reports tolerating well without significant symptoms. She is accompanied by repeat CT imaging, which shows concern for liver growth and potential new liver lesion. Continues to report loose stools, 3-4 daily but reports food triggers. She has stopped taking cholestyramine and hasn't noticed a difference in her stools. Appetite appropriate, admits to decreased oral fluid intake. No other complaints. Allergies: Allergies Allergen Reactions ??? Vytorin 10-10 [Ezetimibe-Simvastatin] Muscle pain and Unknown Muscle weakness ??? Altace [Ramipril] Cough Medications: Outpatient Encounter Medications as of 10/13/2018: ??? cholecalciferol (VITAMIN D-3) 5,000 unit tablet, Take 15,000 Units by mouth daily., Disp: , Rfl: ??? CHOLESTYRAMINE, BULK, MISC, 1 tablet by Not Applicable route, Disp: , Rfl: ??? coenzyme [id number] (CO Q-10, WITH VIT E,) 100-5 mg-unit capsule, , Disp: , Rfl: ??? DULoxetine DR (CYMBALTA) 30 mg capsule, daily., Disp: , Rfl: ??? MYRBETRIQ 50 mg tablet extended release 24 hr, Take 50 mg by mouth daily, Disp: , Rfl: 1 ??? olmesartan-hydrochlorothiazide (BENICAR HCT) 40-25 mg per tablet, Take 1 tablet by mouth daily., Disp: , Rfl: 3 ??? PROCTOSOL HC 2.5 % rectal cream, APPLY RECTALLY THREE TIMES A DAY, Disp: , Rfl: 0 ??? simvastatin (ZOCOR) 20 mg tablet, , Disp: , Rfl: ??? wheat dextrin (BENEFIBER CLEAR SF, DEXTRIN, ORAL), , Disp: , Rfl: ??? ascorbic acid, vitamin C, 500 mg capsule, Take 1 tablet by mouth., Disp: , Rfl: ??? trospium (SANCTURA) 20 mg tablet, Take 20 mg by mouth., Disp: , Rfl: ROS: A complete review of systems was preformed and was negative other than those mentioned in the aboveinterval history. All other systems negative. Objective: Most Recent Vitals: BP: 125/71 Temp: 36.4 ??C (97.5 ??F) Temp src: Oral Pulse: 64 Resp: 16 SpO2: 99 % Weight: 83.5 kg (184 lb) Physical Exam: ECOG PS: 0 General: well developed, well nourished female that is age appropriate\ in no acute distress sitting in a chair. Head: Extraocular movements are intact, oropharynx clear. No mucositis, thrush, ulcers. Neck: Supple, no lymphadenopathy or thyromegaly. Chest: Clear to auscultation bilaterally. No wheezes or rales. Unlabored breathing. Heart: S1S2, RRR, no murmurs, rubs or gallops Abdomen: Soft, non tender, non distended, bowel sounds present. No organomegaly appreciated. well healed abdominal surgical scars. Extremities: No cyanosis, clubbing or edema. Skin: No rash or open wounds. Neurological: Grossly intact. A&O x 4 Labs: All laboratories personally reviewed and discussed with patient during office visit, selected values included below. Lab Results Component Value Date WBC 6.1 10/13/2018 HGB 14.4 10/13/2018 HCT 42.4 10/13/2018 MCV 85.2 10/13/2018 LABPLAT 153 10/13/2018 NEUTROABS 3.6 10/13/2018 CMP: Lab Results Component Value Date/Time SODIUM 141 10/13/2018 09:04 AM POTASSIUM 5.2 (H) 10/13/2018 09:04 AM CO2 30 10/13/2018 09:04 AM BUNSER 18 10/13/2018 09:04 AM GLUCOSE 113 10/13/2018 09:04 AM CREATININE 0.97 10/13/2018 09:04 AM CALCIUM 10.8 (H) 10/13/2018 09:04 AM CHLORIDE 103 10/13/2018 09:04 AM ALBUMIN 4.4 10/13/2018 09:04 AM AST 23 10/13/2018 09:04 AM ALT 20 10/13/2018 09:04 AM ALKPHOS 91 10/13/2018 09:04 AM BILITOT 0.5 10/13/2018 09:04 AM PROT 6.9 10/13/2018 09:04 AM ANIONGAP 8 10/13/2018 09:04 AM Tumor Marker History Some values may be hidden. Unless noted otherwise, only the newest values recorded on each date aredisplayed. Tumor Markers Latest Ref Range 06/16/18 07/14/18 08/11/18 09/15/18 Chromogranin A <93 ng/mL 102 (A) 118 (A) 132 (A) 132 (A) (A) Abnormal value Comments are available for some flowsheets but are not being displayed. Imaging: CT Chest Abdomen Pelvis W Contrast Addendum: `Addendum by Dr. Verma: Compared t0o CT of 04/21/2018 the metastasis in segment 7 has grown from 2.4 cm to 3.3 cm. An additional segment 6 lesion has remained stable at 1 cm. There is a possible new one in segment 5 that measures about 1.2 cm. Liver MR recommended for better characterization. Electronically signed by: Moses Verma M.D. Narrative: EXAMINATION: Computed tomography of the chest abdomen and pelvis with intravenous contrast material. HISTORY: Metastatic neuroendocrine tumor. TECHNIQUE: CT scan of the chest abdomen and pelvis was performed after the uneventful administration of 100 mL of Optiray 350 following standard technique. FINDINGS: CHEST: The right lung shows no suspicious pulmonary nodules or infiltrates. Minimal linear scarring is seen in the right middle lobe anteriorly, stable. The left lung shows a stable 5 mm lymph node in the oblique fissure. Otherwise the left lung is normal. Mediastinal windows demonstrate normal thyroid gland. Normal size lymph nodes seen in the mediastinum, stable. Aberrant right subclavian artery, normal anatomic variant again seen. No central pulmonary embolism. The thoracic aorta is otherwise unremarkable. No pleural effusion. No pericardial effusion. There is some thinning and fat the pulsation in the left ventricular apex, likely related related to prior ischemia. This is stable. ABDOMEN: Within the right lobe of the liver, slice -506.50, there is a new 3 cm lesion which demonstrates central necrosis and peripheral enhancement, suspicious for a liver metastasis. In addition, there is nodularity and enhancement in the dome of the liver, which appear similar to the prior examination. The pancreas is normal. Normal adrenal glands. Right kidney cysts with kidneys being otherwise normal. Slight increase in retroperitoneal lymph nodes seen. Throughout the omentum, there are multiple nodules. Some of them have increased in size. On slice -638.50, there is a 1 cm nodule that previously measured 7 mm. In the pelvic region, slice minus 778.50, there is a stable 8mm mesenteric nodule. The patient is status post right hemicolectomy. The patient is status post cholecystectomy. Spleen is slightly enlarged same size as before. Tiny cystic lesion is seen in the spleen on slice -508.50. Normal adrenal glands and kidneys bilaterally. Pelvis: The patient is status post hysterectomy. 2 cm enhancing nodule in the right vaginal cuff stable. High attenuation area in the vagina could represent a pesarius. Bones: The bones are unremarkable. Impression: 1. Interval development of the lesion in the right hemiliver suspicious for metastasis. MR of the liver recommended for further characterization. The metastatic implants along the superior surface of the liver are stable. 2. Slight interval decrease in size of multiple omental deposits. Electronically signed by: Moses Verma M.D. Assessment & Plan: Ms. 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 She comes in for continued treatment and follow-up. 1. Metastatic neuroendocrine tumor of the ilium: CT imaging on 10/06/18 showed growth of one liver lesion and potential new lesion in segment 5. Therefore, in collaboration with Dr. Cr, will obtain MRI Liver. Her chromogranin A has steadily treanding upward, therefore will hold octreotide LAR injection today and obtain PET Dotatate imagine. Explained the rationale and benefits of these procedures in detail, she was agreeable. We also briefly discussed future lines of therapy, but will discuss inmore detail at next visit. We will plan for her to return to clinic in 2 weeks after imaging complete. La Chung will follow up as directed above, she was encouraged to call in the interim with questions or concerns. Bailee Bobby, MSN, OCN, ANP Nurse Practitioner, Medical Oncology Pet Training Instructor completed by using M*Modal Fluency Direct speaking [...] obtained. ??The study was interpreted on the Validroid workstation. ?? Scanned area: skull vertex to [...] obtained. The study was interpreted on the Valid[employer] workstation. Scanned area: skull vertex to the [...] Electronically signed by: Wili Durham M.D. Bailee Esmermary Bobby ERP CONSULTANT IMG PET PROCEDURES Final Result documented in this encounter Visit Diagnoses Diagnosis Malignant neoplasm metastatic to liver (HCC) Neuroendocrine carcinoma (HCC) Other malignant neoplasm of unspecified site Malignant neoplasm metastatic to liver (HCC) Neuroendocrine carcinoma (HCC) Other malignant neoplasm of unspecified site documented in this encounter Historical Medications * This list may reflect changes made after this encounter. CHOLESTYRAMINE, BULK, MISC 1 tablet by Not Applicable route 9 MYRBETRIQ 50 mg tablet extended release 24 hr Take 50 mg by mouth daily 1 09/29/2018 9 added in this encounter Orders Appointment Requests Count Last Ordered Date Fi rst Ordered Date ONCBCN CLINIC APPOINTMENT REQUEST 1 019 documented in this encounter Care Teams Occupational Therapy Assistant Relationship Specialty Start Date End Date Julio César Briseno MD PCP - General 10/01/16 documented as of this encounter
--- OUTSIDE RECORDS SUMMARY | 2024-06-25 22:37 | XMS_ITS | Encounter Summary ---
Author Organization [facility] Address [address] [place] [address] Phone Care Team Providers Care Ash Kier Boiler Name Role Phone Julio César Briseno MD Primary Care Provider Encounter Details Date Type Department Care Team (Late st Contact Info) Description 08/19/2018 Orders Only [facility] Oncology [address] [facility] 7th [place] [address] [place] [address] Mayela Williamson, [place] Social History Tobacco Use Types Packs/Day Years Used Date Smoking Tobacco: Never Smokeless Tobacco: Never Alcohol Use Standard Drinks/Week Comments Yes 1 (1 standard drink = 0.6 oz pur e alcohol) Comments No Sex and Gender Information Value Date Recorded Sex Assigned at Not on file Legal Sex Female 2:41 PM RN BURN Gender Identity Not on file Sexual Orientation [...] Date End Da te cholecalciferol (VITAMIN D-3) 5,000 unit tablet Take 15,000 Units by mouth daily. 08/19/2018 cholecalciferol (VITAMIN D3) 2,000 unit capsule Take by mouth. 9 documented as of this encounter Historical Medications * This list may reflect changes made after this encounter. cholecalciferol (VITAMIN D-3) 5,000 unit tablet Take 15,000 Units by mouth daily. 08/19/2018 cholecalciferol (VITAMIN D-3) 5,000 unit tablet Take 15,000 Units by mouth daily. 04/24/2019 added in this encounter Care Teams Ash Kier Boiler Relationship Specialty Start Date End Date Julio César Briseno MD PCP - General 10/01/16 documented as of this encounter
--- OUTSIDE RECORDS SUMMARY | 2024-06-25 22:37 | XMS_ITS | Encounter Summary ---
Author Organization [facility] Address [address] [place] [address] Phone Care Team Providers Care Taping Supervisor Name Role Phone Julio César Briseno MD Primary Care Provider Encounter Details Date Type Department Care Team (Late st Contact Info) Description 10/13/[address] 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
--- OUTSIDE RECORDS SUMMARY | 2024-06-25 22:37 | XMS_ITS | Encounter Summary ---
Author Organization [facility] Facility Care Team Providers Care Textile Screen Printer Name Role Phone Julio César Briseno MD Primary Care Provider [phone] Eren Cr MD Unavailable [phone] Yohana Bowen MD Unavailable Encounter Details Date Type Department Care Team (Latest Contact Info) Description 12/23/2018 Travel Social History Tobacco Use Types Packs/Day Years Used Date Smoking Tobacco: Never Smokeless Tobacco: Never Alcohol Use Standard Drinks/Week Comments Yes 1 (1 standard drink = 0.6 oz pur e alcohol) Comments No Sex and Gender Information Value Date Recorded Sex Assigned at Not on file 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
--- OUTSIDE RECORDS SUMMARY | 2024-06-25 22:37 | XMS_ITS | Encounter Summary ---
Author Organization [facility] Address [address] [place] [address] Care Team Providers Care Police Lieutenant Patrol Name Role Phone Julio César Briseno MD Primary Care Provider + [phone] Eren Cr MD Unavailable [phone] Yohana Bowen MD Unavailable Reason for Referral * Diagnostic Imaging (Routine) - Closed Specialty Diagnoses / Procedures Referred By Contac t Referred To Contact Radiology Diagnoses Neuroendocrine carcinoma (HCC) Procedures IR PICC Line Placement > 5 Years Yohana Bowen MD Phone: tel: fax: [address] [phone] Referral ID Status Reason Start Date Expiration Date Visits Re quested Visits Authorized [id number] Closed 12/05/2018 06/15/2020 1 1 Reason for Visit * Diagnostic Imaging (Routine) - Closed Specialty Diagnoses / Procedures Referred By Evelyne t Referred To Contact Radiology Diagnoses Neuroendocrine carcinoma (HCC) Procedures IR PICC Line Placement > 5 Years Yohana Bowen MD Phone: tel: fax: [address] [phone] Referral ID Status Reason Start Date Expiration Date Visits Re quested Visits Authorized [id number] Closed 12/05/2018 06/15/2020 1 1 Encounter Details Date Type Department Care Team (Latest Contact Info) Description 12/23/2018 9:51 AM CDT - 12/23/2018 11:34 AM CDT Hospital Encounter [facility] Radiology [facility] [address] [place] [address] Yohana Bowen MD [address] [facility] [address] [place] [address] Neuroendocrine carcinoma (CMS/HCC) Discharge Disposition: Discharge to home or self care Social History Tobacco Use Types Packs/Day Years Used Date Smoking Tobacco: Never Smokeless Tobacco: Never Alcohol Use Standard Drinks/Week Comments Yes 1 (1 standard drink = 0.6 oz pur e alcohol) Comments No Sex and Gender Information Value Date Recorded Sex Assigned at Not on file 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 Gender Identity Not on file Sexual Orientation Straight 02/19/2021 9: 29 AM CDT Occupation Industry Job Start Date Job End Date retired Not on file Not on file Not on file documented as of this encounter Last Filed Vital Signs Vital Sign Reading Time Taken Comments Blood Pressure 134/89 12/23/2018 11:15 AM CDT Pulse 84 12/23/2018 11:15 AM CDT Temperature 36.4 ??C (97.5 ??F) 12/23/2018 10:10 AM C DT Respiratory Rate 15 12/23/2018 11:10 AM CDT Oxygen Saturation 95% 12/23/2018 11:15 AM CDT Inhaled Oxygen Concentration - - Weight - - Height - - Body Mass Index - - documented in this encounter Discharge Diagnoses Diagnosis Other malignant neuroendocrine tumors (HCC) - OTHER MALIGNANT NEUROENDOCRINE TUMORS documented in this encounter Discharge Instructions * Discharge Instructions* Jeet Welch PA - 12/23/2018 11:23 AM CDT Interventional Radiology Outpatient Discharge Instructions/Note Diagnosis:neuroendocrine tumor Procedure: PICC placement Limitations: [] No lifting greater than 5 [...] draining. To contact an Interventional Radiologist at [facility] call [phone] Saturday through Saturday from 7:30am-4:30pm. At all other times call [phone] and ask that the Interventional Radiologist be paged. To contact an Interventional Radiologist at [facility] call [phone] Saturday through Saturday from 7:30am-3:30pm. Special instructions: [...] at Please come to: [] 3rd Floor [facility] [] 4th floor [facility] [] [facility] [] [facility] Please call [phone] to schedule a follow up appointment. You need to return in documented in this encounter Medications at Time of Discharge simvastatin (ZOCOR) 20 mg tablet Take 1 tablet (20 mg total) by mouth nightly ascorbic acid, vitamin C, 500 mg capsuleIndicati ons:supplement Take 1 tablet by mouth maternal fetal physician before breakfast 07/04/2016 4 cephalexin (KEFLEX) 500 mg capsule cephalexin 500 mg capsule 9 cholecalciferol (VITAMIN D-3) 5,000 unit tablet Take 15,000 Units by mouth daily. 9 cholestyramine (QUESTRAN) 4 gram packet cholestyramine (with sugar) 4 gram powder for susp in a packet 9 clotrimazole-be tamethasone (LOTRISONE) cream Apply 1 Application topically daily as needed (rash) 4 coenzyme P56-aoksisc E 100-5 mg-unit capsuleIndicati ons:supplement Take 1 tablet by mouth maternal fetal physician before breakfast 4 diphenoxylate-a tropine (LOMOTIL) 2.5-0.025 [...] documented in this encounter Nursing Notes * Clay Mccormack RN - 12/23/2018 10:43 AM CDT Pt ID band verified, assisted to table without incident, and placed on monitor. documented in this encounter Miscellaneous Notes * Post-Procedure Note - Jeet Welch PA - 12/23/2018 11:18 AM CDT Radiology Brief Post Procedure Note Attending: Latrice Leger M.D. Metal Treater: SERGEY Watts Sedation/Anesthesia: Local Pre-Op/Pre-Procedure Diagnosis: neuroendocrine tumor Post-Op/Post-Procedure Diagnosis: same Procedure Performed: PICC placement Procedure Findings: Tip at cavo-atrial junction. The catheter is ready for immediate use. Complications: None Estimated Blood Loss: < 30 ml Specimens: None Condition: Stable Full report to follow. * Pre-Procedure Note - Jeet Welch PA - 12/23/2018 10:32 AM CDT Radiology Procedure Plan Indication: neuroendocrine tumor Planned Procedure: PICC placement documented in this encounter Plan of Treatment Not on file documented as of this encounter Procedures Procedure Name Priority Date/Time Associated Diagnosis Comments IR PICC LINE PLACEMENT > 5 YEARS Schedule Routine, Read Routine (OP Routine) 12/23/2018 11:10 AM CDT Neuroendocrine carcinoma (CMS/HCC) documented in this [...] was obtained. ??Prior to beginning the procedure, [place] Protocol was used to confirm the patient's [...] was obtained. Prior to beginning the procedure, [place] Protocol was used to confirm the patient's [...] 100 unit/mL injection Code/trauma/sedation medication, Starting on Sat12/23/18 at 1107, Indications: Maintain Patency of Indwelling Vascular CatheterIndications:Luis herr Patency of Indwelling Vascular Catheter Given 12/23/2018 11:07 AM CDT 2.5 mL heparin 100 unit/mL injection Code/trauma/sedation medication, Starting on Sat12/23/18 at 1107, Indications: Maintain Patency of Indwelling Vascular CatheterIndications:Marryi n Patency of Indwelling Vascular Catheter Given 12/23/2018 11:07 AM CDT 2.5 mL lidocaine PF (XYLOCAINE) 10 mg/mL (1 %) preservative free injection Code/trauma/sedation medication, Starting on Sat12/23/18 at 1102, Intra-Procedure (IR), Indications: Administration of Local AnesthesiaIndications:Admin istration of Local Anesthesia Given 12/23/2018 11:02 AM CDT 5 mL Other (Comment) documented in this encounter Active and Recently Administered Medications Times are shown in CDT. PRN Medication Order 12/21/2018 12/22/2018 12/23/2018 heparin 100 unit/mL injection (COMPLETED) Code/trauma/sedation medication, Starting on Sat12/23/18 at 1107, Indications: Maintain Patency of Indwelling Vascular Catheter 1107 (Given - Provid er: SERGEY Watts) heparin 100 unit/mL injection (COMPLETED) Code/trauma/sedation medication, Starting on Sat12/23/18 at 1107, Indications: Maintain Patency of Indwelling Vascular Catheter 1107 (Given - Provid er: SERGEY Watts) lidocaine PF (XYLOCAINE) 10 mg/mL (1 %) preservative free injection (COMPLETED) Code/trauma/sedation medication, Starting on Sat12/23/18 at 1102, Intra-Procedure (IR), Indications: Administration of Local Anesthesia 1102 (Given - Provid er: SERGEY Watts - Comment: any) documented in this encounter Care Teams Police Lieutenant Patrol Relationship Specialty Start Date End Date Julio César Briseno MD PCP - General 10/01/16 Eren Cr MD Referring Physician Medical Oncology 11/25/18 Yohana Bowen MD Radiation Oncologist Radiation Oncology 11/25/18 documented as of this encounter
--- OUTSIDE RECORDS SUMMARY | 2024-06-25 22:37 | XMS_ITS | Encounter Summary ---
Author Organization [facility] Address [address] [place] [address] Phone Care Team Providers Care Solution Maker Name Role Phone Julio César Briseno MD Primary Care Provider Encounter Details Date Type Department Care Team (Late st Contact Info) Description 09/16/2018 Telephone [facility] Oncology [address] [facility] 7th [place] [address] [place] [address] Jeevan Martino, RN [address] [place] [address] Social History Tobacco Use Types Packs/Day Years Used Date Smoking Tobacco: Never Smokeless Tobacco: Never Alcohol Use Standard Drinks/Week Comments Yes 1 (1 standard drink = 0.6 oz pur e alcohol) Comments No Sex and Gender Information Value Date Recorded Sex Assigned at Not on file 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 This nurse asked the patient to continue with current OTC Vitamin D. The patient agreed to plan. Continue with monthly CMP panels and will repeat Vitamin D in 3 months. Patient thanked this nurse for the information. documented in this encounter Plan of Treatment Not on file documented as of this encounter Visit Diagnoses Not on filedocumented in this encounter Care Teams Solution Maker Relationship Specialty Start Date End Date Julio César Briseno MD PCP - General 10/01/16 documented as of this encounter
--- OUTSIDE RECORDS SUMMARY | 2024-06-25 22:37 | XMS_ITS | Encounter Summary ---
Author Organization [facility] Address [address] [place] [address] Care Team Providers Care University Registrar Name Role Phone Julio César Briseno MD Primary Care Provider Eren Cr MD Unavailable [phone] Yohana Bowen MD Unavailable Encounter Details Date Type Department Care Team (Late st Contact Info) Description 12/24/2018 7:00 AM CDT Office Visit [facility] Radiation Oncology [facility] [place] [address] Julio César Daniel MD [address] [facility] [address] [place] [address] Yohana Bowen MD [address] [facility] [address] [place] [address] 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); Neuroendocrine carcinoma (CMS/HCC) Social History Tobacco Use Types Packs/Day Years Used Date Smoking Tobacco: Never Smokeless Tobacco: Never Alcohol Use Standard Drinks/Week Comments Yes 1 (1 standard drink = 0.6 oz pur e alcohol) Comments No Sex and Gender Information Value Date Recorded Sex Assigned at Not on file 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 Gender Identity Not on file Sexual Orientation Straight 02/19/2021 9: 29 AM CDT Occupation Industry Job Start Date Job End Date retired Not on file Not on file Not on file documented as of this encounter Last Filed Vital Signs Vital Sign Reading Time Taken Comments Blood Pressure 141/65 12/24/2018 2:15 PM CDT Pulse 78 12/24/2018 2:15 PM CDT Temperature - - Respiratory Rate - - Oxygen Saturation 95% 12/24/2018 2:15 PM CDT Inhaled Oxygen Concentration - - Weight 81.9 kg (180 lb 9.6 oz) 12/24/2018 7:17 A M CDT Height - - Body Mass Index 31.99 11/25/2018 9:15 AM CDT documented in this encounter Progress Notes * Huy Landis RN - 12/24/2018 7:00 AM CDT Pt admitted to Brachytherapy for Jody-177 #1. Identified by name, , and photo. Explained procedureto pt and pt verbalized understanding. VSS. Pt consented to study. Right arm double lumen PICC lineflushes without resistance and positive blood return present. Lab collected for study. Amino Acids started at 500ml/hr @ 0819. Therapist administered Jody-[address] Bowen present. Pt completed Jody- 177 administration w/o incident. Dose line removed with proper PPE and port capped with therapist assistance. Amino Acids continued to infuse at titrated rate. Pt completed Amino Acids administrationw/o incident @ 1300. VSS. Labs drawn for study. PICC line removed by Dr. Bowen. Discharge instructions explained to pt and packet provided. Pt verbalized understanding. Vital signs remained stable post-PICC line removal. Pt ambulatory from department. 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 Patient received amino acid infusion through right PICC line. I was called to supervise the administration of the Jody-177. I verified the dose. Dose was delivered until three stable readings. Treatment was tolerated well. I personally removed the PICC line per standard hospital procedure. Patient was observed for 30 minutes after PICC removal with stable vital signs at 15 and 30 minutes. 195.7 mCiof a prescribed dose of 199.5 mCi was delivered. PROCEDURE FINDINGS: N/A SPECIMENS REMOVED: N/A ESTIMATED BLOOD LOSS: None DISPOSITION: Patient will receive post-treatment octreotide/SSA injection within 4-24 hours of completing this therapy. 1 month injection will be at the discretion of medical oncology and patient. Patient will return for treatment #2 of 4 in 2 months. Patient is [...] Date/Time Associated Diagnosis Comments DIFFERENTIAL AUTO Routine 12/24/2018 7:5 8 AM CDT Neuroendocrine carcinoma (CMS/HCC) IMMUNE DEFICIENCY PROFILE Routine 12/24/2018 7:58 AM CDT Neuroendocrine carcinoma (CMS/HCC) CBC WITH AUTO DIFFERENTIAL Routine 12/24/2018 7:58 AM CDT Neuroendocrine carcinoma (CMS/HCC) documented in this encounter Results * Differential, auto (12/24/2018 7:58 AM CDT) Neutrophil abs 3.9 1.7 - 6.5 K/cumm [facility] Imm gran abs 0.0 0.0 - 0.1 K/cumm [facility] Lymphocyte abs 1.2 0.8 - 3.3 K/cumm [facility] Monocyte abs 0.8 0.2 - 0.8 K/cumm [facility] Eosinophil abs 0.1 0.0 - 0.5 K/cumm [facility] Basophil abs 0.0 0.0 - 0.1 K/cumm [facility] Neutrophil pct 64.7 % [facility] Comment: Interpretive Data Percent cell count reference ranges are not reported, since discordance with absolute values may lead to misinterpretation of CBC data. Current Interpretive Data was last revised on 2017. Imm gran pct 0.5 % [facility] Comment: Interpretive Data Percent cell count reference ranges are not reported, since discordance with absolute values may lead to misinterpretation of CBC data. Current Interpretive Data was last revised on 2017. Lymphocyte pct 19.2 % [facility] Comment: Interpretive Data Percent cell count reference ranges are not reported, since discordance with absolute values may lead to misinterpretation of CBC data. Current Interpretive Data was last revised on 2017. Monocyte pct 13.9 % [facility] Comment: Interpretive Data Percent cell count reference ranges are not reported, since discordance with absolute values may lead to misinterpretation of CBC data. Current Interpretive Data was last revised on 2017. Eosinophil pct 1.2 % [facility] Comment: Interpretive Data Percent cell count reference ranges are not reported, since discordance with absolute values may lead to misinterpretation of CBC data. Current Interpretive Data was last revised on 2017. Basophil pct 0.5 % [facility] Comment: Interpretive Data Percent cell count reference ranges are not reported, since discordance with absolute values may lead to misinterpretation of CBC data. Current Interpretive Data was last revised on 2017. Blood specimen (specimen) 12/24/2018 7:58 AM CDT 12/24/2018 1:45 PM CDT us Yohana Bowen MD LAB BLOOD ORDERABLES Final Resul t Performing Organization Address [facility] Co de Phone Number [facility] Department [place] [address] * (ABNORMAL) CBC with auto differential (12/24/2018 7:58 AM CDT) [facility] WBC 6.0 3.8 - 9.9 K/cumm [facility] Hgb 13.1 11.9 - 15.5 g/dL [facility] Hct 39.6 35.6 - 45.5 % [facility] Plt 138(L) 150 - 400 K/cumm [facility] MPV 10.9 9.1 - 12.3 fL [facility] RBC 4.57 3.90 - 5.20 M/cumm [facility] MCV 86.7 81.3 - 96.4 fL [facility] MCH 28.7 27.1 - 33.3 pg [facility] MCHC 33.1 32.3 - 35.7 g/dL [facility] RDW CV 13.1 11.1 - 14.9 % [facility] RDW SD 40.9 35.7 - 48.1 fL [facility] NRBC abs 0.00 0.00 - 0.01 K/cumm [facility] Blood specimen (specimen) 12/24/2018 7:58 AM CDT 12/24/2018 1:45 PM CDT Yohana Bowen MD LAB BLOOD ORDERABLES Final Resul t Performing Organization Address [facility] Co de Phone Number [facility] Department [place] [address] * Immune deficiency profile (12/24/2018 7:58 AM CDT) Pathologist [facility] CD4 pct 31 31 - 64 % [facility] CD4 Absolute 390 365 - 1,294 cells/mcL [facility] CD8 pct 28 12 - 40 % [facility] CD8 Absolute 353 187 - 781 cells/mcL [facility] CD4/CD8 ratio 1.1 0.9 - 4.4 [facility] Blood specimen (specimen) 12/24/2018 7:58 AM CDT 12/24/2018 1:44 PM CDT us Yohana Bowen MD LAB BLOOD ORDERABLES Final Resul t [facility] Department [place] [address] documented in this encounter Visit Diagnoses Diagnosis Malignant neoplasm metastatic to liver (HCC)- Primary Neuroendocrine carcinoma (HCC) Other malignant neoplasm of unspecified site documented in this encounter Administered Medications Inactive Administered Medications - up to 3 most recent administrations Medication Order MAR Action Action Date Dose Rate Site L-arginine 1.25%/L-lysine 1.25% infusion 1,000 mL 1,000 mL, intravenous, Continuous, Starting on Sat12/24/18 at 0800, x2 bags initiate at least 30 minutes prior to giving lutetium Jody 177 dotatate (LUTATHERA) infusion. Continue during and 3 hours after LUTATHERA infusion.Indications:Malign ant neoplasm metastatic to liver (HCC) New Bag 12/24/2018 10:30 AM CDT 1,000 mL 400 mL/hr Rate/Dose Change 12/24/2018 9:50 AM CDT 400 mL/ hr New Bag 12/24/2018 8:19 AM CDT 1,000 mL 500 mL/hr sodium chloride 0.9% infusion 50 mL/hr, intravenous, Continuous, Starting on Sat12/24/18 at 0800Indications:Malignant neoplasm metastatic to liver (HCC) New Bag 12/24/2018 9:00 AM CDT 50 mL/hr 50 mL /hr documented in this encounter Care Teams University Registrar Relationship Specialty Start Date End Date Julio César Briseno MD PCP - General 10/01/16 Eren Cr MD Referring Physician Medical Oncology 11/25/18 Yohana Bowen MD Radiation Oncologist Radiation Oncology 11/25/18 documented as of this encounter
--- OUTSIDE RECORDS SUMMARY | 2024-06-25 22:37 | XMS_ITS | Encounter Summary ---
Author Organization [facility] Address [address] [place] [address] Care Team Providers Care Grain Cleaner Name Role Phone Julio César Briseno MD Primary Care Provider [phone] Reason for Referral * Diagnostic Imaging (Routine) - Closed Specialty Diagnoses / Procedures Referred By Contac t Referred To Contact Radiology Diagnoses Malignant neoplasm metastatic to liver (HCC) Neuroendocrine carcinoma (HCC) Procedures CT Chest Abdomen Pelvis W Contrast Eren Cr MD Phone: tel: fax: [address] [phone] Referral ID Status Reason Start Date Expiration Date Visits Re quested Visits Authorized [id number] Closed 04/21/2018 10/31/2019 1 1 Reason for Visit * Diagnostic Imaging (Routine) - Closed Specialty Diagnoses / Procedures Referred By Contac t Referred To Contact Radiology Diagnoses Malignant neoplasm metastatic to liver (HCC) Neuroendocrine carcinoma (HCC) Procedures CT Chest Abdomen Pelvis W Contrast Eren Cr MD Phone: tel: fax: [address] [phone] Referral ID Status Reason Start Date Expiration Date Visits Re quested Visits Authorized [id number] Closed 04/21/2018 10/31/2019 1 1 Encounter Details Date Type Department Care Team (Latest Contact Info) Description 10/06/2018 9:00 AM CDT - 10/06/2018 11:59 PM CDT Hospital Encounter 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 9 coenzyme [id number] 100-5 mg-unit capsuleIndicatio ns:supplement Take 1 tablet by mouth nailhead operator before breakfast [address] (CYMBALTA) 30 [...] CONTRAST Schedule Routine, Read Routine (OP Routine) 10/06/2018 9:35 AM CDT Malignant neoplasm metastatic to liver (CMS/HCC) Neuroendocrine carcinoma (CMS/HCC) documented in this encounter Results * CT Chest Abdomen Pelvis W Contrast (10/06/2018 9:35 AM CDT) Anatomical Region Laterality Modality Body N/A Computed Tomogra phy 10/06/2018 10:2 1 AM CDT Addenda Addendum by Moses Verma MD on 10/07/2018 12:29 PM CDT `Addendum by Dr. Verma: Compared t0o CT of 04/21/2018 the metastasis in segment 7 has grown from 2.4 cm to 3.3 cm. An additional segment 6 lesion has remained stable at 1 cm. There is a possible new one in segment 5 that measures about 1.2 cm. ??Liver MR recommended for better characterization. Electronically signed by: Moses Verma M.D. Impressions 10/06/2018 10:21 AM CDT 1. ??Interval development of the lesion in the right hemiliver suspicious for metastasis. ??MR of the liver recommended for further characterization. ??The metastatic implants along the superior surface of the liver are stable. 2. ??Slight interval decrease in size of multiple omental deposits. Electronically signed by: Moses Verma M.D. Narrative 10/06/2018 10:21 AM CDT EXAMINATION: Computed tomography of the chest abdomen and pelvis with intravenous contrast material. HISTORY: Metastatic neuroendocrine tumor. TECHNIQUE: CT scan of the chest abdomen and pelvis was performed after the uneventful administration of 100 mL of Optiray 350 following standard technique. FINDINGS: CHEST: The right lung shows no suspicious pulmonary nodules or infiltrates. ??Minimal linear scarring is seen in the right middle lobe anteriorly, stable. The left lung shows a stable 5 mm lymph node in the oblique fissure. Otherwise the left lung is normal. Mediastinal windows demonstrate normal thyroid gland. ??Normal size lymph nodes seen in the mediastinum, stable. ??Aberrant right subclavian artery, normal anatomic variant again seen. ??No central pulmonary embolism. ??The thoracic aorta is otherwise unremarkable. No pleural effusion. ??No pericardial effusion. ??There is some thinning and fat the pulsation in the left ventricular apex, likely related related to prior ischemia. ??This is stable. ABDOMEN: Within the right lobe of the liver, slice -506.50, there is a new 3 cm lesion which demonstrates central necrosis and peripheral enhancement, suspicious for a liver metastasis. ??In addition, there is nodularity and enhancement in the dome of the liver, which appear similar to the prior examination. The pancreas is normal. Normal adrenal glands. ??Right kidney cysts with kidneys being otherwise normal. ??Slight increase in retroperitoneal lymph nodes seen. Throughout the omentum, there are multiple nodules. ??Some of them have increased in size. ??On slice -638.50, there is a 1 cm nodule that previously measured 7 mm. ??In the pelvic region, slice minus 778.50, there is a stable 8mm mesenteric nodule. ??The patient is status post right hemicolectomy. The patient is status post cholecystectomy. Spleen is slightly enlarged same size as before. ??Tiny cystic lesion is seen in the spleen on slice -508.50. ??Normal adrenal glands and kidneys bilaterally. Pelvis: The patient is status post hysterectomy. ??2 cm enhancing nodule in the right vaginal cuff stable. ??High attenuation area in the vagina could represent ??a pesarius. Bones: The bones are unremarkable. Procedure Note Moses Verma MD - 10/06/2018 EXAMINATION: Computed tomography of the chest abdomen [...] a pesarius. Bones: The bones are unremarkable. IMPRESSION: 1. Interval development of the lesion in the right hemiliver suspicious for metastasis. MR of the liver recommended for further characterization. The metastatic implants along the superior surface of the liver are stable. 2. Slight interval decrease in size of multiple omental deposits. Electronically signed by: Moses Verma M.D. us Eren Cr MD IMG CT PROCEDURES Edited Resu lt - Final documented in this encounter Visit Diagnoses Diagnosis Malignant neoplasm metastatic to liver (HCC) Neuroendocrine carcinoma (HCC) Other malignant neoplasm of unspecified site documented in this encounter Administered Medications Inactive Administered Medications - up to 3 most recent administrations Medication Order MAR Action Action Date Dose Rate Site ioversol (OPTIRAY 350) syringe syringe 100 mL 100 mL, intravenous, Once in imaging, contrast, Starting on 10/06/18 at 0936, For 1 dose Given 10/06/2018 9:36 AM CDT 100 mL documented in this encounter Orders Medications Ordered That Brett ht Not Have Been Administered Count Last Ordered Date First Ordered Date ioversol (OPTIRAY 350) syrin ge syringe 100 mL 1 10/06/2018 documented in this encounter Care Teams Grain Cleaner Relationship Specialty Start Date End Date Julio César Briseno MD PCP - General 10/01/16 documented as of this encounter
--- OUTSIDE RECORDS SUMMARY | 2024-06-25 22:37 | XMS_ITS | Encounter Summary ---
Author Organization 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) Procedures LA OCTREOTIDE INJECTION, DEPOT Octreotide 28 Day Cycles - Carcinoid Eren Cr MD [address] [facility] [address] [place] [address] Phone: tel: fax: [address] [phone] Phone: tel: fax: Referral ID Status Reason Start Date Expiration Date V isits Requested Visits Authorized [id number] Authorized 11/28/2017 02/05/2025 1 150 Encounter Details Date Type Department Care Team (Late st Contact Info) Description 10/13/2018 9:15 AM CDT Lab [facility] Oncology [address] [facility] 7th [place] [address] [place] [id number] Malignant neoplasm metastatic to liver (CMS/HCC); Neuroendocrine carcinoma (CMS/HCC) Social History Tobacco Use Types Packs/Day Years Used Date Smoking Tobacco: Never Smokeless Tobacco: Never Alcohol Use Standard Drinks/Week Comments Yes 1 (1 standard drink = 0.6 oz pur e alcohol) Comments No Sex and Gender Information Value Date Recorded Sex Assigned at Not on file 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 Gender Identity Not on file Sexual Orientation Straight 02/19/2021 9: 29 AM CDT Occupation Industry Job Start Date Job End Date retired Not on file Not on file Not on file documented as of this encounter Plan of Treatment Not on file documented as of this encounter Procedures Procedure Name Priority Date/Time Associated Diagnosis Comments DIFFERENTIAL AUTO STAT 10/13/2018 9:0 4 AM CDT Malignant neoplasm metastatic to liver (CMS/HCC) Neuroendocrine carcinoma (CMS/HCC) CBC WITH AUTO DIFFERENTIAL STAT 10/13/2018 9:04 AM CDT Malignant neoplasm metastatic to liver (CMS/HCC) Neuroendocrine carcinoma (CMS/HCC) CHROMOGRANIN A Routine 10/13/2018 9:04 AM CDT Malignant neoplasm metastatic to liver (CMS/HCC) Neuroendocrine carcinoma (CMS/HCC) COMPREHENSIVE METABOLIC PANEL STAT 10/13/2018 9:04 AM CDT Malignant neoplasm metastatic to liver (CMS/HCC) Neuroendocrine carcinoma (CMS/HCC) documented in this encounter Results * Differential, auto (10/13/2018 9:04 AM CDT) Neutrophil abs 3.6 1.8 - 6.6 K/cumm [facility] Comment:Testing performed by : [facility], [address] [place] [phone] Lymphocyte abs 1.7 1.2 - 3.3 K/cumm [facility] Comment:Testing performed by : [facility], [address] [place] [phone] Monocyte abs 0.7 0.2 - 1.2 K/cumm [facility] Comment:Testing performed by : [facility], [address] [place] [phone] Eosinophil abs 0.2 0.0 - 0.5 K/cumm [facility] Comment:Testing performed by : [facility], [address] [place] [phone] Basophil abs 0.0 0.0 - 0.2 K/cumm [facility] Comment:Testing performed by : [facility], [address] [place] [phone] Neutrophil pct 58.4 % [facility] Comment: Interpretive Data Percent cell count reference ranges are not reported, since discordance with absolute values may lead to misinterpretation of CBC data. Current Interpretive Data was last revised on 2017. Testing performed by: [facility], [address] [place] [phone] Lymphocyte pct 27.4 % [facility] Comment: Interpretive Data Percent cell count reference ranges are not reported, since discordance with absolute values may lead to misinterpretation of CBC data. Current Interpretive Data was last revised on 2017. Testing performed by: [facility], [address] [place] [phone] Monocyte pct 10.8 % [facility] Comment:Testing performed by : [facility], [address] [place] [phone] Eosinophil pct 2.6 % [facility] Comment:Testing performed by : [facility], [address] [place] [phone] Basophil pct 0.8 % [facility] Comment:Testing performed by : [facility], [address] [place] [phone] Blood specimen (specimen) 10/13/2018 9:04 AM CDT 10/13/2018 9:05 AM CDT Narrative [facility] - 10/13/2018 9:10 AM CDT us Eren Cr MD LAB BLOOD ORDERABLES Final Re sult [facility] Department [place] [address] * CBC with auto differential (10/13/2018 9:04 AM CDT) WBC 6.1 3.8 - 9.8 K/cumm [facility] Comment:Testing performed by : [facility], [address] [place] [address] Hgb 14.4 12.1 - 15.1 g/dL [facility] Comment:Testing performed by : [place] [address] Hct 42.4 36.1 - 44.3 % [facility] Comment:Testing performed by : [facility], [address] [place] [address] Plt 153 140 - 440 K/cumm [facility] Comment:Testing performed by : [place] [address] MPV 7.9 6.8 - 10.4 fL [facility] Comment:Testing performed by : [place] [address] RBC 4.97 3.90 - 5.00 M/cumm [facility] Comment:Testing performed by : [place] [address] MCV 85.2 80.0 - 97.6 fL [facility] Comment:Testing performed by : [place] [address] MCH 29.0 26.7 - 33.7 pg [facility] Comment:Testing performed by : [place] [address] MCHC 34.1 32.7 - 35.5 g/dL [facility] Comment:Testing performed by : [place] [address] RDW CV 13.3 11.8 - 14.6 % [facility] Comment:Testing performed by : [place] [address] NRBC abs 0.01 0.00 - 0.01 K/cumm [facility] Comment:Testing performed by : [place] [address] Blood specimen (specimen) 10/13/2018 9:04 AM CDT 10/13/2018 9:05 AM CDT Narrative [facility] - 10/13/2018 9:10 AM CDT us Eren Cr MD LAB BLOOD ORDERABLES Final Re sult [facility] [place] [address] * (ABNORMAL) Comprehensive metabolic panel (10/13/2018 9:04 AM CDT) Sodium 141 135 - 145 mmol/L [facility] Potassium, pl 5.2(H) 3.3 - 4.9 mmol/L [facility] Chloride 103 97 - 110 mmol/L [facility] CO2 30 22 - 32 mmol/L [facility] Anion gap 8 2 - 15 mmol/L [facility] BUN 18 8 - 25 mg/dL [facility] Creatinine 0.97 0.60 - 1.10 mg/dL [facility] Glucose 113 70 - 199 mg/dL [facility] Comment: Interpretive Data Fasting glucose [...] interpretive data was last revised 2017. Calcium 10.8(H) 8.5 - 10.3 mg/dL [facility] Bilirubin, total 0.5 0.1 - 1.2 mg/dL [facility] Protein, pl 6.9 6.5 - 8.5 g/dL [facility] Albumin 4.4 3.5 - 5.0 g/dL [facility] Alk phos 91 40 - 130 Units/L [facility] ALT 20 7 - 45 Units/L [facility] AST 23 10 - 45 Units/L [facility] Blood specimen (specimen) 10/13/2018 9:04 AM CDT 10/13/2018 9:17 AM CDT Narrative [facility] - 10/13/2018 9:54 AM CDT us Eren Cr MD LAB BLOOD ORDERABLES Final Re sult [facility] [place] [address] * (ABNORMAL) Chromogranin A (10/13/2018 9:04 AM CDT) Chromogranin A 151(H) <93 ng/mL [facility] Comment: Impaired renal [...] and its performance characteristics determined by [facility] in a manner consistent with CLIA [...] absence of malignant disease. 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
--- OUTSIDE RECORDS SUMMARY | 2024-06-25 22:37 | XMS_ITS | Encounter Summary ---
Author Organization [facility] Address [address] [place] [address] Phone Care Team Providers Care Client Account Assistant Name Role Phone Julio César Briseno MD Primary Care Provider [phone] Encounter Details Date Type Department Care Team (Late st Contact Info) Description 08/20/2018 Orders Only [facility] Oncology [address] [facility] 7th [place] [address] [place] [address] Mayela Williamson RN Neuroendocrine carcinoma [...] on file 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
--- OUTSIDE RECORDS SUMMARY | 2024-06-25 22:37 | XMS_ITS | Encounter Summary ---
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) Eren Cr MD Phone: tel: fax: [facility] Radiation Oncology [address] [place] [address] Phone: tel: fax: Referral ID Status Reason Start Date Expiration Date V isits Requested Visits Authorized [id number] Closed Specialty Services Required 11/24/2018 06/04/2020 1 1 Encounter Details Date Type Department Care Team (Late st Contact Info) Description 11/25/2018 9:00 AM CDT Consult [facility] Radiation Oncology [address] [place] [address] Eren Cr MD [address] [place] [address] [address] [place] [address] Yohana Bowen MD [address] [facility] [address] [place], [place] [id number] Malignant neoplasm metastatic to liver (CMS/HCC); Neuroendocrine carcinoma (CMS/HCC) Social History Tobacco Use Types Packs/Day Years Used Date Smoking Tobacco: Never Smokeless Tobacco: Never Alcohol Use Standard Drinks/Week Comments Yes 1 (1 standard drink = 0.6 oz pur e alcohol) Comments No Sex and Gender Information Value Date Recorded Sex Assigned at Not on file 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 female who is presenting today for consultative evaluation and consideration of palliative treatment in regard to their diagnosis of: Cancer Staging Malignant neoplasm metastatic to liver (CMS/HCC) Staging form: Liver, AJCC V7 - Clinical: No stage assigned - Unsigned HISTORY OF PRESENT ILLNESS: Ms. Chung is a 68 yof w/ a Hx of metastatic GI NET. She initially presented in 2016 with severe diarrhea and flushing and??CT abdomen and pelvis showed a calcified enhancing mass centered in the terminal ileum with possible involvement of the proximal appendix suspicious for primary tumor such as carcinoid or possibly adenocarcinoma. ??It also showed bilateral ovarian enhancing solid masses suspicious for metastatic disease. Further, the CT showed tiny nodules in the omentum which could represent tumor deposits. She had a colonoscopy in July at an outside hospital that showed hemorrhoids, ileitis, and diverticulosis. On 10/03/2015 she had an exploratory laparotomy, bilateral salpingo-oophorectomy, partial omentectomy, and peritoneal biopsies by Dr. Jasbir Reeves. ??At the same time, she also underwent right colectomy in the same OR by Dr. Greyson Reeves. 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 Her MRI from 11/04/2015 showed hepatic segment 7 lesion demonstrating mild T2 hyperintensity and diffusion restriction consistent with a metastatic focus. Enhancing nodules with diffusion restriction along the surface of the hepatic segment 6 consistent with serosal metastatic deposits. Nodular soft tissue enhancement along the left aspect of the vaginal cuff was suspicious for local recurrence. Chest CT from 11/04/2015 showed no evidence of metastatic disease in the chest. Octreotide scan from 11/04/2015 showed no evidence forsomatostatin receptor positive tumor. She started octreotide on 11/07/2015. She had stable disease on multiple subsequent scans in 2017. Scans done in 2018 showed minimal increase in her lesions. CT C/A/P on 10/06/18 showed an interval development of the lesion in the right hemiliver that was further characterized by an MRI showing multiple hepaticlesions suspicious for metastatic disease. On 11/19/18, Gallium dotatate PET showed postsurgical changes of exploratory laparotomy and omentectomy with diffuse metastatic disease in the chest, abdomen, and pelvis, including a lesion in the proximal left humerus. Her last octreotide with Dr. Cr was 2m ago. She was referred to RO for consideration of PRRT 2/2 progression of her disease on octreotide. She report that she is doing well clinically. She still has occasional mild diarrhea and flushing. Denies n/v, abdominal pain. Past Medical History Past Medical History: Diagnosis Date ??? Cancer (CMS/HCC) ??? Hypercholesteremia ??? Hypertension ??? Personal history of other diseases of the digestive system History of hemorrhoids - (Added by TW Conv) Past Surgical History Past Surgical History: Procedure Laterality Date ??? GALLBLADDER SURGERY Gallbladder Surgery - (Added by TW Conv) ? ? NC REMOVAL OF TONSILS,<12 Y/O Tonsillectomy - (Added by TW Conv) ??? NC TOTAL ABDOM HYSTERECTOMY Hysterectomy - (Added by TW Conv) Family History Family History Problem Relation Age of Onset ??? Breast cancer Sister Adenocarcinoma of breast - (Added by TW Conv) ??? Suicidality Father Family history of suicide - (Added by TW Conv) ??? Other (old age) Mother Social History Social History Socioeconomic History ??? Marital status: [...] ??? Drug use: No ??? Sexual activity: Not on file Lifestyle ??? Physical activity: Days per week: Not on file Minutes per session: Not on file ??? Stress: Not on file Relationships ??? Social connections: Talks on phone: Not on file Gets together: Not on file Attends anglican service: Not on file Active member of [...] alcohol use : (Added by TW Conv) ALLERGIES: Allergies Allergen Reactions ??? Ezetimibe-Simvastatin Muscle pain and Unknown Muscle weakness ??? Ramipril Cough MEDICATIONS: Current Outpatient Medications Medication Sig Dispense Refill ??? clotrimazole-betamethasone (LOTRISONE) cream clotrimazole-betamethasone 1 %- 0.05 % topical cream APPLY EXTERNALLY TO ABDOMEN TWICE DAILY NEEDED ??? DULoxetine DR (CYMBALTA) 30 mg capsule daily. ??? ergocalciferol (VITAMIN D) 50,000 unit capsule Vitamin D2 50,000 unit capsule ??? hydrocortisone (PROCTOSOL HC) 2.5 % rectal cream Proctosol HC 2.5 % topical cream perineal applicator APPLY RECTALLY THREE TIMES A DAY ??? montelukast (SINGULAIR) 10 mg tablet montelukast 10 mg tablet ??? MYRBETRIQ 50 mg tablet extended release 24 hr Take 50 mg by mouth daily 1 ??? olmesartan-hydrochlorothiazide (BENICAR HCT) 20-12.5 mg per tablet Take 1 tablet by mouth daily ??? simvastatin (ZOCOR) 20 mg tablet ??? ascorbic acid, vitamin C, 500 mg capsule Take 1 tablet by mouth. ??? cephalexin (KEFLEX) 500 mg capsule cephalexin 500 mg capsule ??? cholecalciferol (VITAMIN D-3) 5,000 unit tablet Take 15,000 Units by mouth daily. ??? cholestyramine (QUESTRAN) 4 gram packet cholestyramine (with sugar) 4 gram powder for susp in apacket ??? coenzyme F98-zeignnq E (CO Q-10, WITH VIT E,) 100-5 mg-unit capsule ??? fluticasone propionate (FLONASE) 50 mcg/actuation nasal spray fluticasone propionate 50 mcg/actuation nasal spray,suspension ??? trospium (SANCTURA) 20 mg tablet Take 20 mg by mouth. ??? valsartan-hydroCHLOROthiazide (DIOVAN-HCT) 80-12.5 mg per tablet valsartan 80 mg-hydrochlorothiazide 12.5 mg tablet ??? wheat dextrin (BENEFIBER CLEAR SF, DEXTRIN, ORAL) No current facility-administered medications for this visit. REVIEW OF SYSTEMS A complete ROS including 10 systems was obtained and was negative except as per HPI. PHYSICAL EXAMINATION: Ht 160 cm (5' 3 ) Wt 83.5 kg (184 lb) BMI 32.59 kg/m?? Physical Exam Constitutional: She is oriented to person, place, and time. She appears well- developed and well-nourished. HENT: Head: Normocephalic and atraumatic. Eyes: Pupils are equal, round, and reactive to light. EOM are normal. Neck: Normal range of motion. Neck supple. Cardiovascular: Normal rate, regular rhythm and normal heart sounds. Exam reveals no gallop and no friction rub. No murmur heard. Pulmonary/Chest: Effort normal and breath sounds normal. No stridor. No respiratory distress. She has no wheezes. She has no rales. Abdominal: Soft. Bowel sounds are normal. She exhibits no distension and no mass. There is no tenderness. There is no guarding. Lymphadenopathy: She has no cervical adenopathy. Neurological: She is alert and oriented to person, place, and time. Pain Score and Location 11/25/18 0915 PainSc: 0-No pain PERFORMANCE STATUS 0 - Asymptomatic PRIOR RADIATION No history of prior radiation. IMPLANT DEVICES No implant devices DIAGNOSTIC REPORTS REVIEWED: Imaging: Pertinent imaging was reviewed. As described in the HPI. Pathology: Pertinent pathology was reviewed. As described in the HPI. Laboratory: No pertinent laboratory studies. ASSESSMENT/PLAN: 68 y.o.female with No diagnosis found. is being seen in routine for consideration of palliative radiation therapy for progressive metastatic NET. We discussed with the patient that since she has a progressive NET on octreotide that is G2 (Ki-67 8.2%) and her dotatate PET is positive she is a good candidate for PRRT. We discussed that they will need a PICC line for the duration of these treatments and that one would be inserted the day before each infusion and removed after completion of the infusion. He would then receive the infusion once every other month for a total of 4 treatments, or 8 months. During each treatment, which would last approximately 4-6 hours, he would receive amino acids to protect the kidneys, as well as a combination of Octreotide and Lutetium 177. He would then continue with his Octreotide injections approximately 24 hours after the infusion. Side effects of these infusions include, but are not limited to nausea, fatigue, thinning of the hair, myalgias, arthralgias and low blood counts. We also discussed the radiation precautions necessary during the treatments, including avoiding small children or women for approximately 2 weeks after each infusion, good hand hygiene practices, overall hygiene practices, and minimizing the risk to others through bodily fluids and waste, including double-flushing of the toilet. Approximately 2-3 months after he has completed all of his infusions, we would then re-image to evaluate response to treatment. RAD ONC PAIN PLAN: The patient is not currently having any pain that requires changes in pain management. DISEASE STATUS/TOXICITY: Disease Status: Failure: Distant New metachronous cancer?: No Julio César Poole MD, PhD Resident, PGY-3 Department of Radiation Oncology Cosigned by Yohana Bowen MD at 11/26/2018 10:18 AM CDT Associated attestation - Yohana Bowen MD - 11/26/2018 10:18 AM CDT I have seen and examined the patient. I agree with the findings and plan of care as documented in the resident's note. 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 The patient is a candidate for Jody-177 therapy. We will begin the insurance approval process and schedule treatment. Thank you for allowing us to participate in the care of this patient. Yohana Bowen MD Fundraising Sale Representative Department of Radiation Oncology documented in this encounter Nursing Notes * Hien Soto RN - 11/25/2018 9:00 AM CDT Presents for Lutathera Consult. Identified by name and . Medical Oncologist: Dr. Cr. Last Octreotide was 09/15/18. Chemo: None DOT PET: 11/19/18 Denies pacemaker, port, prior rt or stents. Lodging: na Insurance approval request sent to Pre auth team. 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
--- OUTSIDE RECORDS SUMMARY | 2024-06-25 22:37 | XMS_ITS | Encounter Summary ---
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) Procedures [place] OCTREOTIDE INJECTION, DEPOT Octreotide 28 Day Cycles - Carcinoid Eren Cr MD [address] [facility] [address] [place] [address] Phone: tel: fax: [facility] Cancer [address] [address] Phone: tel: fax: Referral ID Status Reason Start Date Expiration Date V isits Requested Visits Authorized [id number] Authorized 11/28/2017 02/05/2025 1 150 Encounter Details Date Type Department Care Team (Late st Contact Info) Description 08/11/2018 10:00 AM PORCELAIN ENAMEL REPAIRER Infusion [facility] Oncology [address] [facility] Advanced Medicine 7th [place] [id number] 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); Neuroendocrine carcinoma (CMS/HCC) Social History Tobacco Use Types Packs/Day Years Used Date Smoking Tobacco: Never Smokeless Tobacco: Never Alcohol Use Standard Drinks/Week Comments Yes 1 (1 standard drink = 0.6 oz pur e alcohol) Comments No Sex and Gender Information Value Date Recorded Sex Assigned at Not on file Legal Sex Female 2:41 PM PORCELAIN ENAMEL REPAIRER Gender Identity Not on file Sexual Orientation Straight 02/19/2021 9: 29 AM CDT Occupation Industry Job Start Date Job End Date retired Not on file Not on file Not on file documented as of this encounter Last Filed Vital Signs Vital Sign Reading Time Taken Comments Blood Pressure 149/73 08/11/2018 9:59 AM PORCELAIN ENAMEL REPAIRER Pulse 89 08/11/2018 9:59 AM PORCELAIN ENAMEL REPAIRER Temperature 36.8 ??C (98.2 ??F) 08/11/2018 9:59 AM CS T Respiratory Rate 20 08/11/2018 9:59 AM PORCELAIN ENAMEL REPAIRER Oxygen Saturation 93% 08/11/2018 9:59 AM PORCELAIN ENAMEL REPAIRER Inhaled Oxygen Concentration - - Weight 83.9 kg (185 lb) 08/11/2018 9:59 AM PORCELAIN ENAMEL REPAIRER Height - - Body Mass Index 33.3 01/01/2018 12:48 PM CDT documented in this encounter Nursing Notes * Sara Gunter - 08/11/2018 10:00 AM CST Patient tolerated injection well today. Discharged ambulatory, aware of return appointments. ELAIN ENAMEL REPAIRER documented in this encounter Plan of [...] 30 mg 30 mg, intramuscular, Once, On 08/11/18 at 1015, For 1 dose, Refrigerate. For IM administration only. 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),Neuroendocrine carcinoma (HCC) Given 08/11/2018 10:06 AM PORCELAIN ENAMEL REPAIRER 30 mg Left Dorsogluteal/Butt ock documented in this encounter Orders Medications Ordered That Brett ht Not Have Been Administered Count Last Ordered Date First Ordered Date octreotide LAR (SandoSTATIN LAR) extended release intramuscular injection 30 mg 1 08/11/2018 Appointment Requests Count Last Ordered Date Fi rst Ordered Date ONCBCN INJECTION APPOINTMENT REQUEST 1 10/2018 documented in this encounter Care Teams Staffing Clerk Relationship Specialty Start Date End Date Julio César Briseno MD PCP - General 10/01/16 documented as of this encounter
--- OUTSIDE RECORDS SUMMARY | 2024-06-25 22:38 | XMS_ITS | Encounter Summary ---
Author Organization [facility] Address [address] [place] [address] Phone Care Team Providers Care Occupational Health Nurse Name Role Phone Julio César Briseno MD Primary Care Provider Encounter Details Date Type Department Care Team (Late st Contact Info) Description 12/26/[address] 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
--- OUTSIDE RECORDS SUMMARY | 2024-06-25 22:38 | XMS_ITS | Encounter Summary ---
Author Organization [facility] Address [address] [place] [address] Phone Care Team Providers Care Coin Machine Servicer Repairer Name Role Phone Julio César Briseno MD Primary Care Provider [phone] Encounter Details Date Type Department Care Team (Late st Contact Info) Description 12/25/2017 Orders Only [facility] Oncology [address] [facility] Advanced Medicine 7th [place] [address] Eren Cr MD [address] [facility] [address] [place] [address] Malignant neoplasm metastatic to liver (CMS/HCC); Neuroendocrine carcinoma (CMS/HCC) Social History Tobacco Use Types Packs/Day Years Used Date Smoking Tobacco: Former Comments Unknown Sex and Gender Information Value Date Recorded Sex Assigned at Not on file Legal Sex Female 2:41 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
--- OUTSIDE RECORDS SUMMARY | 2024-06-25 22:38 | XMS_ITS | Encounter Summary ---
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) Procedures [place] OCTREOTIDE INJECTION, DEPOT Octreotide 28 Day Cycles - Carcinoid Eren Cr MD [address] [facility] [address] [place] [address] Phone: tel: fax: [address] [address] Phone: tel: fax: Referral ID Status Reason Start Date Expiration Date V isits Requested Visits Authorized [id number] Authorized 11/28/2017 02/05/2025 1 150 Encounter Details Date Type Department Care Team (Late st Contact Info) Description 12/30/2017 10:00 AM CDT Infusion [facility] Oncology [facility] Advanced Medicine 7th [place] [address] 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); Neuroendocrine carcinoma (CMS/HCC) Social History Tobacco Use Types Packs/Day Years Used Date Smoking Tobacco: Former Comments Unknown Sex and Gender Information Value Date Recorded Sex Assigned at Not on file Legal Sex Female 2:41 PM DOCUMENT SCANNER Gender Identity Not on file Sexual Orientation Straight 02/19/2021 9: 29 AM CDT documented as of this encounter Last Filed Vital Signs Vital Sign Reading Time Taken Comments Blood Pressure 159/84 12/30/2017 12:14 PM CDT Pulse 86 12/30/2017 11:30 AM CDT Temperature 36.8 ??C (98.2 ??F) 12/30/2017 11:30 AM C DT Respiratory Rate 18 12/30/2017 11:30 AM CDT Oxygen Saturation 96% 12/30/2017 11:30 AM CDT Inhaled Oxygen Concentration - - Weight 83.2 kg (183 lb 6.4 oz) 12/30/2017 11:30 AM CDT Height - - Body Mass Index 32.91 10/21/2017 10:14 AM CDT documented in this encounter Nursing Notes * Hien Barrera - 12/30/2017 10:00 AM CDT Pt tolerated injection well. Pt discharged in stable condition per ambulatory. documented in this encounter Plan of [...] 30 mg 30 mg, intramuscular, Once, On 12/30/17 at 1215, For 1 dose, Refrigerate. For IM administration only. 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),Neuroendocrine carcinoma (HCC) Given 12/30/2017 12:16 PM CDT 30 mg Right Dorsogluteal/Butt ock documented in this encounter Orders Medications Ordered That Brett ht Not Have Been Administered Count Last Ordered Date First Ordered Date octreotide LAR (SandoSTATIN LAR) extended release intramuscular injection 30 mg 1 12/30/2017 Appointment Requests Count Last Ordered Date Fi rst Ordered Date ONCBCN INJECTION APPOINTMENT REQUEST 1 12/07 documented in this encounter Care Teams Section Hand Helper Relationship Specialty Start Date End Date Julio César Briseno MD PCP - General 10/01/16 documented as of this encounter
--- OUTSIDE RECORDS SUMMARY | 2024-06-25 22:38 | XMS_ITS | Encounter Summary ---
Author Organization [facility] Healthcare Address [address] [place] [address] Care Team Providers Care Customer Account Specialist Name Role Phone Julio César Briseno MD Primary Care Provider Encounter Details Date Type Department Care Team (Late st Contact Info) Description 01/27/2018 10:50 [place] [address] Social History Tobacco Use Types Packs/Day Years Used Date Smoking Tobacco: Never Smokeless Tobacco: Never Alcohol Use Standard Drinks/Week Comments Yes 1 (1 standard drink = 0.6 oz pur e alcohol) Comments No Sex and Gender Information Value Date Recorded Sex Assigned at Not on file Legal Sex Female 2:41 PM LINING CUTTER Gender Identity Not on file Sexual Orientation Straight 02/19/2021 9: 29 AM CDT Occupation Industry Job Start Date Job End Date retired Not on file Not on file Not on file documented as of this encounter Plan of Treatment Not on file documented as of this encounter Procedures Procedure Name Priority Date/Time Associated Diagnosis Comments VITAMIN D 25 HYDROXY Routine Gen Lab 01/27/2018 10:51 AM CDT documented in this encounter Results * Vitamin D 25 hydroxy (01/27/2018 10:51 AM CDT) Vitamin D 25-OH 37 30 - 80 ng/mL [facility] Blood specimen (specimen) 01/27/2018 10:51 AM CDT 01/27/2018 10:57 AM CDT Narrative [facility] - 01/27/2018 12:05 PM CDT us Bailee Alcazar MD LAB BLOOD ORDERABLES Fin al Result [facility] Department [place] [address] documented in this encounter Visit Diagnoses Not on filedocumented in this encounter Care Teams Customer Account Specialist Relationship Specialty Start Date End Date Julio César Briseno MD PCP - General 10/01/16 documented as of this encounter
--- OUTSIDE RECORDS SUMMARY | 2024-06-25 22:38 | XMS_ITS | Encounter Summary ---
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) Procedures [place] OCTREOTIDE INJECTION, DEPOT Octreotide 28 Day Cycles - Carcinoid Eren Cr MD [address] [facility] [address] [place] [address] Phone: tel: fax: [facility] [address] [address] Phone: tel: fax: Referral ID Status Reason Start Date Expiration Date V isits Requested Visits Authorized [id number] Authorized 11/28/2017 02/05/2025 1 150 Encounter Details Date Type Department Care Team (Late st Contact Info) Description 02/24/2018 10:00 AM CDT Infusion [facility] Medicine 7th [place] [address] 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); Neuroendocrine carcinoma (CMS/HCC) Social History Tobacco Use Types Packs/Day Years Used Date Smoking Tobacco: Never Smokeless Tobacco: Never Alcohol Use Standard Drinks/Week Comments Yes 1 (1 standard drink = 0.6 oz pur e alcohol) Comments No Sex and Gender Information Value Date Recorded Sex Assigned at Not on file Legal Sex Female 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 Gender Identity Not on file Sexual Orientation Straight 02/19/2021 9: 29 AM CDT Occupation Industry Job Start Date Job End Date retired Not on file Not on file Not on file documented as of this encounter Last Filed Vital Signs Vital Sign Reading Time Taken Comments Blood Pressure 117/71 02/24/2018 9:48 AM CDT Pulse 80 02/24/2018 9:48 AM CDT Temperature 37 ??C (98.6 ??F) 02/24/2018 9:48 AM CDT Respiratory Rate 18 02/24/2018 9:48 AM CDT Oxygen Saturation 96% 02/24/2018 9:48 AM CDT Inhaled Oxygen Concentration - - Weight 83.1 kg (183 lb 3.2 oz) 02/24/2018 9:48 A M CDT Height - - Body Mass Index 32.97 01/01/2018 12:48 PM CDT documented in this encounter Nursing Notes * Lisseth Parker RN - 02/24/2018 10:00 AM CDT Patient tolerated injection well. Given LEFT buttock. Discharged per ambulatory. Lisseth Molina RN documented in this encounter Plan of [...] 30 mg 30 mg, intramuscular, Once, On 02/24/18 at 1015, For 1 dose, Refrigerate. For IM administration only. Shake.Indications:Malignan t neoplasm metastatic to liver (HCC),Neuroendocrine carcinoma (HCC) Given 02/24/2018 9:52 AM CDT 30 mg Left Ventrogluteal documented in this encounter Orders Medications Ordered That Brett ht Not Have Been Administered Count Last Ordered Date First Ordered Date octreotide LAR (SandoSTATIN LAR) extended release intramuscular injection 30 mg 1 02/24/2018 Appointment Requests Count Last Ordered Date Fi rst Ordered Date ONCBCN INJECTION APPOINTMENT REQUEST 1 02/06 documented in this encounter Care Teams Private Equity Analyst Relationship Specialty Start Date End Date Julio César Briseno MD PCP - General 10/01/16 documented as of this encounter
--- OUTSIDE RECORDS SUMMARY | 2024-06-25 22:38 | XMS_ITS | Encounter Summary ---
Author Organization [facility] of [facility] Address [address] [place] [address] Phone Care Team Providers Care Gl[employer]ier [employer] Furniture Name Role Phone Julio César Briseno MD Primary Care Provider [phone] Encounter Details Date Type Department Care Team (Late st Contact Info) Description 02/06/2018 Orders Only [facility] Oncology [address] [facility] Advanced Medicine 7th [place] [address] [place] [address] Eren Cr MD [address] [facility] [address] [place] [address] Social History Tobacco Use Types Packs/Day Years Used Date Smoking Tobacco: Never Smokeless Tobacco: Never Alcohol Use Standard Drinks/Week Comments Yes 1 (1 standard drink = 0.6 oz pur e alcohol) Comments No Sex and Gender Information Value Date Recorded Sex Assigned at Not on file Legal Sex Female 2:41 PM 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
--- OUTSIDE RECORDS SUMMARY | 2024-06-25 22:38 | XMS_ITS | Encounter Summary ---
Author Organization [facility] Address [address] [place] [address] Phone Care Team Providers Care Industrial Chemicals Supervisor Name Role Phone Julio César Briseno MD Primary Care Provider [phone] 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) Procedures [place] OCTREOTIDE INJECTION, DEPOT Octreotide 28 Day Cycles - Carcinoid Eren Cr MD [address] [facility] [address] [place] [address] Phone: tel: fax: [address] [address] Phone: tel: fax: Referral ID Status Reason Start Date Expiration Date V isits Requested Visits Authorized [id number] Authorized 11/28/2017 02/05/2025 1 150 Encounter Details Date Type Department Care Team (Late st Contact Info) Description 02/24/2018 9:15 AM CDT Lab [facility] Oncology [address] [facility] Advanced [facility] 7th [place] [address] [place] [id number] Malignant neoplasm metastatic to liver (CMS/HCC); Neuroendocrine carcinoma (CMS/HCC) Social History Tobacco Use Types Packs/Day Years Used Date Smoking Tobacco: Never Smokeless Tobacco: Never Alcohol Use Standard Drinks/Week Comments Yes 1 (1 standard drink = 0.6 oz pur e alcohol) Comments No Sex and Gender Information Value Date Recorded Sex Assigned at Not on file Legal Sex Female 2:41 PM MANAGED SERVICES CONSULTANT Gender Identity Not on file Sexual Orientation Straight 02/19/2021 9: 29 AM CDT Occupation Industry Job Start Date Job End Date retired Not on file Not on file Not on file documented as of this encounter Plan of Treatment Not on file documented as of this encounter Procedures Procedure Name Priority Date/Time Associated Diagnosis Comments CHROMOGRANIN A Routine 02/24/2018 9:15 AM CDT Malignant neoplasm metastatic to liver (CMS/HCC) Neuroendocrine carcinoma (CMS/HCC) COMPREHENSIVE METABOLIC PANEL STAT 02/24/2018 9:15 AM CDT Malignant neoplasm metastatic to liver (CMS/HCC) Neuroendocrine carcinoma (CMS/HCC) DIFFERENTIAL AUTO STAT 02/24/2018 9:1 1 AM CDT Malignant neoplasm metastatic to liver (CMS/HCC) Neuroendocrine carcinoma (CMS/HCC) CBC WITH AUTO DIFFERENTIAL STAT 02/24/2018 9:11 AM CDT Malignant neoplasm metastatic to liver (CMS/HCC) Neuroendocrine carcinoma (CMS/HCC) documented in this encounter Results * Chromogranin A (02/24/2018 9:15 AM CDT) Chromogranin A 92 <93 ng/mL [facility] Comment: A reagent change was implemented on date 11/13/2017. Measured chromogranin A concentrations were on average 7% higher using the new reagent formulation. However, for individual specimens the variation may exceed 7%. Upon request, samples previously submitted within the last six months can be retested using the new reagent formulation. ADDITIONAL INFORMATION This test was developed and its performance characteristics determined by [facility] in a manner consistent with CLIA [...] disease. Test Performed by: [facility] [address] [place] [address] Blood specimen (specimen) 02/24/2018 9:15 AM CDT 02/24/2018 1:57 PM CDT Narrative [facility] - 02/25/2018 1:43 PM CDT Eren rC MD LAB BLOOD ORDERABLES Final Re sult [facility] Department [place] [address] * (ABNORMAL) Comprehensive metabolic panel (02/24/2018 9:15 AM CDT) Sodium 141 135 - 145 mmol/L [facility] Potassium, pl 4.0 3.3 - 4.9 mmol/L [facility] Chloride 105 97 - 110 mmol/L [facility] CO2 26 22 - 32 mmol/L [facility] Anion gap 10 2 - 15 mmol/L [facility] BUN 20 8 - 25 mg/dL [facility] Creatinine 1.01 0.60 - 1.10 mg/dL [facility] Glucose 95 70 - 199 mg/dL [facility] [...] 2017. Calcium 10.5(H) 8.5 - 10.3 mg/dL [facility] Bilirubin, total 0.5 0.1 - 1.2 mg/dL [facility] Protein, pl 7.1 6.5 - 8.5 g/dL [facility] Albumin 4.3 3.5 - 5.0 g/dL [facility] Alk phos 94 40 - 130 Units/L [facility] ALT 17 7 - 45 Units/L [facility] AST 19 10 - 45 Units/L [facility] Blood specimen (specimen) 02/24/2018 9:15 AM CDT 02/24/2018 10:18 AM CDT Narrative [facility] - 02/24/2018 10:46 AM CDT us Eren Cr MD LAB BLOOD ORDERABLES Final Re sult [facility] Department [place] [address] * Differential, auto (02/24/2018 9:11 AM CDT) Neutrophil abs 3.6 1.8 - 6.6 K/cumm [facility] Comment:Testing performed by : [facility], [address] [place] [phone] Lymphocyte abs 2.2 1.2 - 3.3 K/cumm [facility] Comment:Testing performed by : [facility], [address] [place] [phone] Monocyte abs 0.5 0.2 - 1.2 K/cumm [facility] Comment:Testing performed by : [facility], [address] [place] [phone] Eosinophil abs 0.1 0.0 - 0.5 K/cumm [facility] Comment:Testing performed by : [facility], [address] [place] [phone] Basophil abs 0.0 0.0 - 0.2 K/cumm [facility] Comment:Testing performed by : [facility], [address] [place] [phone] Neutrophil pct 56.2 % [facility] Comment: Interpretive Data Percent cell count reference ranges are not reported, since discordance with absolute values may lead to misinterpretation of CBC data. Current Interpretive Data was last revised on 2017. Testing performed by: [facility], [address] [place] [phone] Lymphocyte pct 34.1 % [facility] Comment: Interpretive Data Percent cell count reference ranges are not reported, since discordance with absolute values may lead to misinterpretation of CBC data. Current Interpretive Data was last revised on 2017. Testing performed by: [facility], [address] [place] [phone] Monocyte pct 7.3 % [facility] Comment:Testing performed by : [facility], [address] [place] [phone] Eosinophil pct 1.7 % [facility] Comment:Testing performed by : [address] [phone] Basophil pct 0.7 % [facility] Comment:Testing performed by : [facility], [address] [place] [phone] Blood specimen (specimen) 02/24/2018 9:11 AM CDT 02/24/2018 9:15 AM CDT Narrative [facility] - 02/24/2018 9:20 AM CDT us Eren Cr MD LAB BLOOD ORDERABLES Final Re sult [facility] Department [place] [address] * (ABNORMAL) CBC with auto differential (02/24/2018 9:11 AM CDT) WBC 6.5 3.8 - 9.8 K/cumm [facility] Comment:Testing performed by : [facility], [address] [place] [phone] Hgb 14.3 12.1 - 15.1 g/dL [facility] Comment:Testing performed by : [facility], [address] [place], [place] [phone] Hct 42.6 36.1 - 44.3 % [facility] Comment:Testing performed by : [facility], [address] [place], [place] [phone] Plt 156 140 - 440 K/cumm [facility] Comment:Testing performed by : [facility], [address] [place], [place] [phone] MPV 7.9 6.8 - 10.4 fL [facility] Comment:Testing performed by : [facility], [address] [place] [address] RBC 4.97 3.90 - 5.00 M/cumm [facility] Comment:Testing performed by : [facility], [address] [place] [address] MCV 85.7 80.0 - 97.6 fL [facility] Comment:Testing performed by : [place] [address] MCH 28.8 26.7 - 33.7 pg [facility] Comment:Testing performed by : [facility], [address] [place], [place] [phone] MCHC 33.7 32.7 - 35.5 g/dL [facility] Comment:Testing performed by : [facility], [address] [place], [place] [phone] RDW CV 13.3 11.8 - 14.6 % [facility] Comment:Testing performed by : [place] [address] NRBC abs 0.02(H) 0.00 - 0.01 K/cumm [facility] Comment:Testing performed by : [facility], [address] [place], [place] [phone] Blood specimen (specimen) 02/24/2018 9:11 AM CDT 02/24/2018 9:15 AM CDT Narrative [facility] - 02/24/2018 9:20 AM CDT Eren Cr MD LAB BLOOD ORDERABLES Final Re sult [facility] [place] [address] documented in this encounter Visit Diagnoses Diagnosis Malignant neoplasm metastatic to liver (HCC) Neuroendocrine carcinoma (HCC) Other malignant neoplasm of unspecified site documented in this encounter Orders Appointment Requests Count Last Ordered Date Fi rst Ordered Date ONCBCN LAB APPOINTMENT 1 02/24/2018 documented in this encounter Care Teams Industrial Chemicals Supervisor Relationship Specialty Start Date End Date Julio César Briseno MD PCP - General 10/01/16 documented as of this encounter
--- OUTSIDE RECORDS SUMMARY | 2024-06-25 22:38 | XMS_ITS | Encounter Summary ---
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) Procedures [place] OCTREOTIDE INJECTION, DEPOT Octreotide 28 Day Cycles - Carcinoid Eren Cr MD [address] [facility] [address] [place] [address] Phone: tel: fax: [address] [address] Phone: tel: fax: Referral ID Status Reason Start Date Expiration Date V isits Requested Visits Authorized [id number] Authorized 11/28/2017 02/05/2025 1 150 Encounter Details Date Type Department Care Team (Latest Contact Info) Description 04/21/2018 10:15 AM CDT Clinical Support [facility] 7th [place] [address] [place] [id number] Malignant neoplasm metastatic to liver (CMS/HCC); Neuroendocrine carcinoma (CMS/HCC) Social History Tobacco Use Types Packs/Day Years Used Date Smoking Tobacco: Never Smokeless Tobacco: Never Alcohol Use Standard Drinks/Week Comments Yes 1 (1 standard drink = 0.6 oz pur e alcohol) Comments No Sex and Gender Information Value Date Recorded Sex Assigned at Not on file 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 Gender Identity Not on file Sexual Orientation Straight 02/19/2021 9: 29 AM CDT Occupation Industry Job Start Date Job End Date retired Not on file Not on file Not on file documented as of this encounter Plan of Treatment Not on file documented as of this encounter Procedures Procedure Name Priority Date/Time Associated Diagnosis Comments DIFFERENTIAL AUTO STAT 04/21/2018 10: 30 AM CDT Malignant neoplasm metastatic to liver (CMS/HCC) Neuroendocrine carcinoma (CMS/HCC) CBC WITH AUTO DIFFERENTIAL STAT 04/21/2018 10:30 AM CDT Malignant neoplasm metastatic to liver (CMS/HCC) Neuroendocrine carcinoma (CMS/HCC) CHROMOGRANIN A Routine 04/21/2018 10:29 AM CDT Malignant neoplasm metastatic to liver (CMS/HCC) Neuroendocrine carcinoma (CMS/HCC) COMPREHENSIVE METABOLIC PANEL STAT 04/21/2018 10:29 AM CDT Malignant neoplasm metastatic to liver (CMS/HCC) Neuroendocrine carcinoma (CMS/HCC) documented in this encounter Results * Differential, auto (04/21/2018 10:30 AM CDT) Neutrophil abs 3.9 1.8 - 6.6 K/cumm [facility] Comment:Testing performed by : [facility], [address] [place] [phone] Lymphocyte abs 2.7 1.2 - 3.3 K/cumm [facility] Comment:Testing performed by : [facility], [address] [place] [phone] Monocyte abs 0.4 0.2 - 1.2 K/cumm [facility] Comment:Testing performed by : [facility], [address] [place] [phone] Eosinophil abs 0.1 0.0 - 0.5 K/cumm [facility] Comment:Testing performed by : [facility], [address] [place] [phone] Basophil abs 0.0 0.0 - 0.2 K/cumm [facility] Comment:Testing performed by : [facility], [address] [place] [phone] Neutrophil pct 55.1 % [facility] Comment: Interpretive Data Percent cell count reference ranges are not reported, since discordance with absolute values may lead to misinterpretation of CBC data. Current Interpretive Data was last revised on 2017. Testing performed by: [facility], [address] [place] [phone] Lymphocyte pct 37.7 % [facility] Comment: Interpretive Data Percent cell count reference ranges are not reported, since discordance with absolute values may lead to misinterpretation of CBC data. Current Interpretive Data was last revised on 2017. Testing performed by: [facility], [address] [place] [phone] Monocyte pct 5.9 % [facility] Comment:Testing performed by : [facility], [address] [place] [phone] Eosinophil pct 0.7 % [facility] Comment:Testing performed by : [facility], [address] [place] [phone] Basophil pct 0.6 % [facility] Comment:Testing performed by : [facility], [address] [place] [phone] Blood specimen (specimen) 04/21/2018 10:30 AM CDT 04/21/2018 10:31 AM CDT Narrative [facility] - 04/21/2018 10:34 AM CDT us Eren Cr MD LAB BLOOD ORDERABLES Final Re sult [facility] Department [place] [address] * (ABNORMAL) CBC with auto differential (04/21/2018 10:30 AM CDT) WBC 7.1 3.8 - 9.8 K/cumm [facility] Comment:Testing performed by : [facility], [address] [place] [address] Hgb 14.5 12.1 - 15.1 g/dL [facility] Comment:Testing performed by : [place] [address] Hct 43.0 36.1 - 44.3 % [facility] Comment:Testing performed by : [facility], [address] [place] [address] Plt 144 140 - 440 K/cumm [facility] Comment:Testing performed by : [place] [address] MPV 8.1 6.8 - 10.4 fL [facility] Comment:Testing performed by : [place] [address] RBC 5.06(H) 3.90 - 5.00 M/cumm [facility] Comment:Testing performed by : [place] [address] MCV 85.0 80.0 - 97.6 fL [facility] Comment:Testing performed by : [place] [address] MCH 28.7 26.7 - 33.7 pg [facility] Comment:Testing performed by : [place] [address] MCHC 33.7 32.7 - 35.5 g/dL [facility] Comment:Testing performed by : [place] [address] RDW CV 13.5 11.8 - 14.6 % [facility] Comment:Testing performed by : [place] [address] NRBC abs 0.02(H) 0.00 - 0.01 K/cumm [facility] Comment:Testing performed by : [place] [address] Blood specimen (specimen) 04/21/2018 10:30 AM CDT 04/21/2018 10:31 AM CDT Narrative [facility] - 04/21/2018 10:34 AM CDT Eren Cr MD LAB BLOOD ORDERABLES Final Re sult [facility] Department [place] [address] * (ABNORMAL) Chromogranin A (04/21/2018 10:29 AM CDT) Chromogranin A 112(H) <93 ng/mL [facility] Comment: Impaired renal or hepatic function [...] determined by [facility] in a manner consistent with CLIA requirements. [...] absence of malignant disease. Test Performed by: [facility] [place] [address] [place] [address] Blood specimen (specimen) 04/21/2018 10:29 AM CDT 04/21/2018 11:04 AM CDT Narrative [facility] - 04/22/2018 2:37 PM CDT Eren Cr MD LAB BLOOD ORDERABLES Final Re sult [facility] Department [place] [address] * Comprehensive metabolic panel (04/21/2018 10:29 AM CDT) Sodium 139 135 - 145 mmol/L [facility] Potassium, pl 3.5 3.3 - 4.9 mmol/L [facility] Chloride 103 97 - 110 mmol/L [facility] CO2 27 22 - 32 mmol/L [facility] Anion gap 9 2 - 15 mmol/L [facility] BUN 19 8 - 25 mg/dL [facility] Creatinine 0.89 0.60 - 1.10 mg/dL [facility] Glucose 157 70 - 199 mg/dL [facility] [...] 2017. Calcium 10.1 8.5 - 10.3 mg/dL [facility] Bilirubin, total 0.9 0.1 - 1.2 mg/dL [facility] Protein, pl 6.6 6.5 - 8.5 g/dL [facility] Albumin 4.3 3.5 - 5.0 g/dL [facility] Alk phos 85 40 - 130 Units/L [facility] ALT 20 7 - 45 Units/L [facility] AST 25 10 - 45 Units/L [facility] Blood specimen (specimen) 04/21/2018 10:29 AM CDT 04/21/2018 10:42 AM CDT Narrative [facility] - 04/21/2018 11:17 AM CDT us Eren Cr MD LAB BLOOD ORDERABLES Final Re sult [facility]ON [facility] [place] [address] documented in this encounter Visit Diagnoses Diagnosis Malignant neoplasm metastatic to liver (HCC) Neuroendocrine carcinoma (HCC) Other malignant neoplasm of unspecified site documented in this encounter Orders Appointment Requests Count Last Ordered Date Fi rst Ordered Date ONCBCN LAB APPOINTMENT 1 04/21/2018 documented in this encounter Care Teams Prenatal Nurse Relationship Specialty Start Date End Date Julio César Briseno MD PCP - General 10/01/16 documented as of this encounter
--- OUTSIDE RECORDS SUMMARY | 2024-06-25 22:38 | XMS_ITS | Encounter Summary ---
Author Organization [facility] Address [address] [place] [address] Phone Care Team Providers Care Butcher'S Assistant Name Role Phone Julio César Briseno MD Primary Care Provider [phone] Reason for Visit * Reason Comments Injections * Episode Based Medications (Routine) - Authorized Specialty Diagnoses / Procedures Referred By Contac t Referred To Contact Oncology Diagnoses Neuroendocrine carcinoma (HCC) Malignant neoplasm metastatic to liver (HCC) Procedures [place] OCTREOTIDE INJECTION, DEPOT Octreotide 28 Day Cycles - Carcinoid Eren Cr MD [address] [facility] [address] [place] [address] Phone: tel: fax: [facility] [address] [address] Phone: tel: fax: Referral ID Status Reason Start Date Expiration Date V isits Requested Visits Authorized [id number] Authorized 11/28/2017 02/05/2025 1 150 Encounter Details Date Type Department Care Team (Late st Contact Info) Description 05/19/2018 10:00 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 Infusion [facility] [address] [facility] 7th [place] [id number] 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); Neuroendocrine carcinoma (CMS/HCC) Social History Tobacco Use Types Packs/Day Years Used Date Smoking Tobacco: Never Smokeless Tobacco: Never Alcohol Use Standard Drinks/Week Comments Yes 1 (1 standard drink = 0.6 oz pur e alcohol) Comments No Sex and Gender Information Value Date Recorded Sex Assigned at Not on file 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 Gender Identity Not on file Sexual Orientation Straight 02/19/2021 9: 29 AM CDT Occupation Industry Job Start Date Job End Date retired Not on file Not on file Not on file documented as of this encounter Last Filed Vital Signs Vital Sign Reading Time Taken Comments Blood Pressure 122/75 05/19/2018 9:41 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 TEACHER Pulse 74 05/19/2018 9:41 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 TEACHER Temperature 36.6 ??C (97.9 ??F) 05/19/2018 9:41 AM CS T Respiratory Rate 18 05/19/2018 9:41 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 TEACHER Oxygen Saturation 95% 05/19/2018 9:41 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 TEACHER Inhaled Oxygen Concentration - - Weight 82.3 kg (181 lb 7 oz) 05/19/2018 9:41 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 TEACHER Height - - Body Mass Index 32.66 01/01/2018 12:48 PM CDT documented in this encounter Nursing Notes * Misa Castellanos RN - 05/19/2018 10:00 AM CST Tolerated injection well. Given in right hip. OLOGY TEACHER documented in this encounter Plan of [...] 30 mg 30 mg, intramuscular, Once, On 05/19/18 at 1100, For 1 dose, Refrigerate. For IM administration only. 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),Neuroendocrine carcinoma (HCC) Given 05/19/2018 10:24 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 TEACHER 30 mg Right Dorsogluteal/Butt ock documented in this encounter Orders Medications Ordered That Brett ht Not Have Been Administered Count Last Ordered Date First Ordered Date octreotide LAR (SandoSTATIN LAR) extended release intramuscular injection 30 mg 1 05/19/2018 Appointment Requests Count Last Ordered Date Fi rst Ordered Date ONCBCN INJECTION APPOINTMENT REQUEST 1 05/08 documented in this encounter Care Teams Butcher'S Assistant Relationship Specialty Start Date End Date Julio César Briseno MD PCP - General 10/01/16 documented as of this encounter
--- OUTSIDE RECORDS SUMMARY | 2024-06-25 22:38 | XMS_ITS | Encounter Summary ---
Author Organization [facility] Healthcare Address [address] [place] [address] Care Team Providers Care Iron Erector Name Role Phone Julio César Briseno MD Primary Care Provider Encounter Details Date Type Department Care Team (Latest Contact Info) Description 01/21/2017 10:07 AM CDT - 12/30/2017 11:59 PM CDT Hospital Encounter [facility] OP INTERIM [phone] Eren Cr MD [address] [place], [place] [id number] Discharge Disposition: Discharge to home or self care Social History Tobacco Use Types Packs/Day Years Used Date Smoking Tobacco: Former Comments Unknown Sex and Gender Information Value Date Recorded Sex Assigned at Not on file 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 DENTAL SERVICES Gender Identity Not on file Sexual Orientation Straight 02/19/2021 9: 29 AM CDT documented as of this encounter Medications at Time of Discharge ascorbic acid, vitamin C, 500 mg capsuleIndicatio ns:supplement Take 1 tablet by mouth flower cheniller before breakfast 07/04/2016 4 fesoterodine ER (TOVIAZ) 4 mg tablet extended release 24 hr Take 4 mg by mouth. 11/28/2017 8 octreotide (SandoSTATIN) 50 mcg/mL (1 mL) syringe every 30 (thirty) days 04/09/2016 2 PROCTOSOL HC 2.5 % rectal cream APPLY RECTALLY THREE TIMES A DAY 0 09/25/2017 9 documented as of this encounter Discharge Disposition Disposition Code Departure Means Destination Discharge to home or self care documented in this encounter Plan of Treatment Not on file documented as of this encounter Procedures Procedure Name Priority Date/Time Associated Diagnosis Comments CBC WITH AUTO DIFFERENTIAL Routine Gen Lab 12/03/2017 9:07 AM CDT CHROMOGRANIN A Routine Gen Lab 12/03/2017 8:00 AM CDT COMPREHENSIVE METABOLIC PANEL STAT 12/03/2017 8:00 AM CDT CBC WITH AUTO DIFFERENTIAL Routine Gen Lab 11/04/2017 7:24 AM CDT CHROMOGRANIN A Routine Gen Lab 11/04/2017 7:20 AM CDT COMPREHENSIVE METABOLIC PANEL Routine Gen Lab 11/04/2017 7:20 AM CDT CBC WITH AUTO DIFFERENTIAL Routine Gen Lab 10/07/2017 11:03 AM CDT CHROMOGRANIN A Routine Gen Lab 10/07/2017 11:00 AM CDT VITAMIN D 25 HYDROXY Routine Gen Lab 10/07/2017 11:00 AM CDT COMPREHENSIVE METABOLIC PANEL Routine Gen Lab 10/07/2017 11:00 AM CDT CBC WITH AUTO DIFFERENTIAL Routine Gen Lab 09/12/2017 10:13 AM DIRECTOR DENTAL SERVICES CHROMOGRANIN A Routine Gen Lab 09/12/2017 10:12 AM DIRECTOR DENTAL SERVICES COMPREHENSIVE METABOLIC PANEL Routine Gen Lab 09/12/2017 10:12 AM DIRECTOR DENTAL SERVICES CHROMOGRANIN A Routine Gen Lab 08/15/2017 9:55 AM DIRECTOR DENTAL SERVICES COMPREHENSIVE METABOLIC PANEL Routine Gen Lab 08/15/2017 9:55 AM DIRECTOR DENTAL SERVICES CHROMOGRANIN A Routine Gen Lab 07/18/2017 9:40 AM DIRECTOR DENTAL SERVICES COMPREHENSIVE METABOLIC PANEL Routine Gen Lab 07/18/2017 9:39 AM DIRECTOR DENTAL SERVICES MORPHOLOGY EXAM Routine Gen Lab 07/18/2017 9:38 AM DIRECTOR DENTAL SERVICES CBC WITH AUTO DIFFERENTIAL Routine Gen Lab 07/18/2017 9:38 AM DIRECTOR DENTAL SERVICES COMPREHENSIVE METABOLIC PANEL Routine Gen Lab 06/20/2017 10:30 AM DIRECTOR DENTAL SERVICES MORPHOLOGY EXAM Routine Gen Lab 06/20/2017 9:57 AM DIRECTOR DENTAL SERVICES CBC WITH AUTO DIFFERENTIAL Routine Gen Lab 06/20/2017 9:57 AM DIRECTOR DENTAL SERVICES CHROMOGRANIN A Routine Gen Lab 06/20/2017 9:55 AM DIRECTOR DENTAL SERVICES COMPREHENSIVE METABOLIC PANEL Routine Gen Lab 05/23/2017 10:00 AM DIRECTOR DENTAL SERVICES CHROMOGRANIN A Routine Gen Lab 05/23/2017 9:55 AM DIRECTOR DENTAL SERVICES CBC WITH AUTO DIFFERENTIAL Routine Gen Lab 05/23/2017 9:54 AM DIRECTOR DENTAL SERVICES COMPREHENSIVE METABOLIC PANEL STAT 04/29/2017 10:35 AM CDT CBC WITH AUTO DIFFERENTIAL Routine Gen Lab 04/29/2017 10:05 AM CDT CHROMOGRANIN A Routine Gen Lab 04/29/2017 10:05 AM CDT CBC WITH AUTO DIFFERENTIAL Routine Gen Lab 03/28/2017 9:51 AM CDT COMPREHENSIVE METABOLIC PANEL STAT 03/28/2017 9:50 AM CDT CHROMOGRANIN A Routine Gen Lab 03/28/2017 9:40 AM CDT COMPREHENSIVE METABOLIC PANEL Routine Gen Lab 02/26/2017 11:42 AM CDT CHROMOGRANIN A Routine Gen Lab 02/26/2017 11:42 AM CDT CBC WITH AUTO DIFFERENTIAL Routine Gen Lab 02/26/2017 11:41 AM CDT CBC WITH AUTO DIFFERENTIAL Routine Gen Lab 01/29/2017 11:52 AM CDT COMPREHENSIVE METABOLIC PANEL Routine Gen Lab 01/29/2017 11:45 AM CDT CHROMOGRANIN A Routine Gen Lab 01/29/2017 11:45 AM CDT documented in this encounter Results * (ABNORMAL) CBC with auto differential (12/03/2017 9:07 AM CDT) Pathologist [facility] WBC 5.9 3.8 - 9.8 K/cumm [facility] RBC 4.83 3.90 - 5.00 M/cumm [facility] Hgb 14.1 12.1 - 15.1 g/dL [facility] Hct 41.2 36.1 - 44.3 % [facility] Mean Cellular Volume - CAM 85.4 80.0 - 97.6 fL [facility] Mean Cellular Hemoglobin - CAM 29.2 26.7 - 33.7 pg [facility] Mean Cellular Hemoglobin Concentration - CAM 34.2 32.7 - 35.5 g/dL [facility] Rdw 13.0 11.8 - 14.6 % [facility] Plt 151 140 - 440 K/cumm [facility] Mean Platelet Volume - CAM 8.0 6.8 - 10.4 fL [facility] Neutrophil pct 63.9 38.7 - 74.5 % [facility] Lymphocyte pct 29.3 20.0 - 54.3 % [facility] Monos 5.0 4.3 - 13.5 % [facility] Eosinophil pct 1.4 0.0 - 6.0 % [facility] Basophil pct 0.4 0.0 - 3.0 % [facility] Neutrophil abs 3.8 1.8 - 6.6 K/cumm [facility] Lymphocyte abs 1.7 1.2 - 3.3 K/cumm [facility] Monocyte abs 0.3 0.2 - 1.2 K/cumm [facility] Eosinophils, abs 0.1 0.0 - 0.5 K/cumm [facility] Basophil abs 0.0 0.0 - 0.2 K/cumm [facility] NRBC 0.4(H) 0.0 - 0.2 % [facility] NRBC abs 0.03(H) 0.00 - 0.01 K/cumm [facility] Blood specimen (specimen) 12/03/2017 9:07 AM CDT 12/03/2017 9:08 AM CDT Narrative [facility] - 12/03/2017 9:18 AM CDT us Eren Cr MD LAB BLOOD ORDERABLES Final Re sult [facility] Department [place] [address] * (ABNORMAL) Chromogranin A (12/03/2017 8:00 AM CDT) Chromogranin A 94(H) <93 ng/mL [facility] Comment: Impaired renal or [...] absence of malignant disease. Test Performed by: [facility] [address] [place] [address] Blood specimen (specimen) 12/03/2017 8:00 AM CDT 12/03/2017 10:14 AM CDT Narrative [facility] - 12/04/2017 2:31 PM CDT us Eren Cr MD LAB BLOOD ORDERABLES Final Re sult [facility] Department [place] [address] * Comprehensive metabolic panel (12/03/2017 8:00 AM CDT) Sodium 142 135 - 145 mmol/L [facility] Potassium, pl 3.7 3.3 - 4.9 mmol/L [facility] CO2 28 22 - 32 mmol/L [facility] BUN 17 8 - 25 mg/dL [facility] Glucose 127 70 - 199 mg/dL [facility] Comment: Interpretive Data Fasting [...] Current interpretive data was last revised 2017. Creatinine 0.81 0.60 - 1.10 mg/dL [facility] Calcium 10.1 8.5 - 10.3 mg/dL [facility] Chloride 108 97 - 110 mmol/L [facility] Albumin 4.1 3.5 - 5.0 g/dL [facility] AST 24 10 - 45 Units/L [facility] ALT 17 7 - 45 Units/L [facility] Alk phos 92 40 - 130 Units/L [facility] Bilirubin, total 0.8 0.1 - 1.2 mg/dL [facility] Protein, pl 6.8 6.5 - 8.5 g/dL [facility] Anion gap 6 2 - 15 mmol/L [facility] Blood specimen (specimen) 12/03/2017 8:00 AM CDT 12/03/2017 9:20 AM CDT Narrative [facility] - 12/03/2017 9:54 AM CDT us Eren Cr MD LAB BLOOD ORDERABLES Final Re sult [facility] Department [place] [address] * (ABNORMAL) CBC with auto differential (11/04/2017 7:24 AM CDT) WBC 7.2 3.8 - 9.8 K/cumm [facility] RBC 5.00 3.90 - 5.00 M/cumm [facility] Hgb 14.6 12.1 - 15.1 g/dL [facility] Hct 43.1 36.1 - 44.3 % [facility] Mean Cellular Volume - CAM 86.2 80.0 - 97.6 fL [facility] Mean Cellular Hemoglobin - CAM 29.2 26.7 - 33.7 pg [facility] Mean Cellular Hemoglobin Concentration - CAM 33.8 32.7 - 35.5 g/dL [facility] Rdw 13.4 11.8 - 14.6 % [facility] Plt 138(L) 140 - 440 K/cumm [facility] Mean Platelet Volume - CAM 8.1 6.8 - 10.4 fL [facility] Neutrophil pct 54.4 38.7 - 74.5 % [facility] Lymphocyte pct 35.2 20.0 - 54.3 % [facility] Monos 7.9 4.3 - 13.5 % [facility] Eosinophil pct 1.7 0.0 - 6.0 % [facility] Basophil pct 0.8 0.0 - 3.0 % [facility] Neutrophil abs 3.9 1.8 - 6.6 K/cumm [facility] Lymphocyte abs 2.5 1.2 - 3.3 K/cumm [facility] Monocyte abs 0.6 0.2 - 1.2 K/cumm [facility] Eosinophils, abs 0.1 0.0 - 0.5 K/cumm [facility] Basophil abs 0.1 0.0 - 0.2 K/cumm [facility] NRBC 0.1 0.0 - 0.2 % [facility] NRBC abs 0.01 0.00 - 0.01 K/cumm [facility] Blood specimen (specimen) 11/04/2017 7:24 AM CDT 11/04/2017 7:28 AM CDT Narrative [facility] - 11/04/2017 7:35 AM CDT Eren Cr MD LAB BLOOD ORDERABLES Final Re sult [facility] Department [place] [address] * Chromogranin A (11/04/2017 7:20 AM CDT) Pathologist [facility] Chromogranin A 49 <93 ng/mL [facility] Comment: ADDITIONAL INFORMATION The testing method is a homogeneous time-resolved immunofluorescent assay. Analyte Specific Reagent: This test was developed and its performance characteristics determined by [facility]. It has not been cleared or approved by the U.S. Food and Drug Administration. ? Values obtained with different assay methods or kits may be different and cannot be used interchangeably. ? Test results cannot be interpreted as absolute evidence for the presence or absence of malignant disease. Test Performed by: [facility] [address] [place] [address] Blood specimen (specimen) 11/04/2017 7:20 AM CDT 11/04/2017 8:19 AM CDT Narrative [facility] - 2017 2:07 PM CDT Eren Cr MD LAB BLOOD ORDERABLES Final Re sult [facility] Department [place] [address] * (ABNORMAL) Comprehensive metabolic panel (11/04/2017 7:20 AM CDT) Sodium 142 135 - 145 mmol/L [facility] Potassium, pl 4.5 3.3 - 4.9 mmol/L [facility] CO2 29 22 - 32 mmol/L [facility] BUN 14 8 - 25 mg/dL [facility] Glucose 107 70 - 199 mg/dL [facility] Comment: Interpretive Data Fasting [...] Current interpretive data was last revised 2017. Creatinine 0.78 0.60 - 1.10 mg/dL [facility] Calcium 10.4(H) 8.5 - 10.3 mg/dL [facility] Chloride 108 97 - 110 mmol/L [facility] Albumin 4.1 3.5 - 5.0 g/dL [facility] AST 24 10 - 45 Units/L [facility] ALT 18 7 - 45 Units/L [facility] Alk phos 94 40 - 130 Units/L [facility] Bilirubin, total 0.6 0.1 - 1.2 mg/dL [facility] Protein, pl 6.6 6.5 - 8.5 g/dL [facility] Anion gap 5 2 - 15 mmol/L [facility] Blood specimen (specimen) 11/04/2017 7:20 AM CDT 11/04/2017 7:41 AM CDT Narrative [facility] - 11/04/2017 8:08 AM CDT us Eren Cr MD LAB BLOOD ORDERABLES Final Re sult [facility] Department [place] [address] * (ABNORMAL) CBC with auto differential (10/07/2017 11:03 AM CDT) WBC 7.0 3.8 - 9.8 K/cumm [facility] RBC 4.87 3.90 - 5.00 M/cumm [facility] Hgb 14.3 12.1 - 15.1 g/dL [facility] Hct 41.7 36.1 - 44.3 % [facility] Mean Cellular Volume - CAM 85.6 80.0 - 97.6 fL [facility] Mean Cellular Hemoglobin - CAM 29.3 26.7 - 33.7 pg [facility] Mean Cellular Hemoglobin Concentration - CAM 34.2 32.7 - 35.5 g/dL [facility] Rdw 13.0 11.8 - 14.6 % [facility] Plt 139(L) 140 - 440 K/cumm [facility] Mean Platelet Volume - CAM 8.2 6.8 - 10.4 fL [facility] Neutrophil pct 58.2 38.7 - 74.5 % [facility] Lymphocyte pct 32.0 20.0 - 54.3 % [facility] Monos 7.5 4.3 - 13.5 % [facility] Eosinophil pct 1.7 0.0 - 6.0 % [facility] Basophil pct 0.6 0.0 - 3.0 % [facility] Neutrophil abs 4.1 1.8 - 6.6 K/cumm [facility] Lymphocyte abs 2.3 1.2 - 3.3 K/cumm [facility] Monocyte abs 0.5 0.2 - 1.2 K/cumm [facility] Eosinophils, abs 0.1 0.0 - 0.5 K/cumm [facility] Basophil abs 0.0 0.0 - 0.2 K/cumm [facility] NRBC 0.0 0.0 - 0.2 % [facility] NRBC abs 0.00 0.00 - 0.01 K/cumm [facility] Blood specimen (specimen) 10/07/2017 11:03 AM CDT 10/07/2017 11:04 AM CDT Narrative [facility] - 10/07/2017 11:07 AM CDT Eren Cr MD LAB BLOOD ORDERABLES Final Re sult Performing Organization Address [facility] Co de Phone Number [facility] Department [place] [address] * Chromogranin A (10/07/2017 11:00 AM CDT) Pathologist [facility] Chromogranin A 72 <93 ng/mL [facility] Comment: ADDITIONAL INFORMATION The testing method is a homogeneous time-resolved immunofluorescent assay. Analyte Specific Reagent: This test was developed and its performance characteristics determined by [facility]. It has not been cleared or approved by the U.S. Food and Drug Administration. ? Values obtained with different assay methods or kits may be different and cannot be used interchangeably. ? Test results cannot be interpreted as absolute evidence for the presence or absence of malignant disease. Test Performed by: [facility] [place] [id number] [place] [address] Blood specimen (specimen) 10/07/2017 11:00 AM CDT 10/07/2017 11:18 AM CDT Narrative [facility] - 10/08/2017 12:34 PM CDT Eren Cr MD LAB BLOOD ORDERABLES Final Re sult [facility] Department [place] [address] * (ABNORMAL) Vitamin D 25 hydroxy (10/07/2017 11:00 AM CDT) Pathologist [facility] Vitamin D 25-OH 28(L) 30 - 80 ng/mL [facility] Blood specimen (specimen) 10/07/2017 11:00 AM CDT 10/07/2017 11:16 AM CDT Narrative [facility] - 10/07/2017 12:04 PM CDT Eren Cr MD LAB BLOOD ORDERABLES Final Re sult Performing Organization Address [facility] Co de Phone Number [facility] Department [place] [address] * Comprehensive metabolic panel (10/07/2017 11:00 AM CDT) [facility] Sodium 142 135 - 145 mmol/L [facility] Potassium, pl 4.0 3.3 - 4.9 mmol/L [facility] CO2 27 22 - 32 mmol/L [facility] BUN 16 8 - 25 mg/dL [facility] Glucose 100 70 - 199 mg/dL [facility] Comment: Interpretive Data Fasting [...] Current interpretive data was last revised 2017. Creatinine 0.83 0.60 - 1.10 mg/dL [facility] Calcium 10.3 8.5 - 10.3 mg/dL [facility] Chloride 106 97 - 110 mmol/L [facility] Albumin 4.1 3.5 - 5.0 g/dL [facility] AST 25 10 - 45 Units/L [facility] ALT 14 7 - 45 Units/L [facility] Alk phos 90 40 - 130 Units/L [facility] Bilirubin, total 0.6 0.1 - 1.2 mg/dL [facility] Protein, pl 6.8 6.5 - 8.5 g/dL [facility] Anion gap 9 2 - 15 mmol/L [facility] Blood specimen (specimen) 10/07/2017 11:00 AM CDT 10/07/2017 11:16 AM CDT Narrative [facility] - 10/07/2017 11:58 AM CDT us Eren Cr MD LAB BLOOD ORDERABLES Final Re sult [facility] Department [place] [address] * (ABNORMAL) CBC with auto differential (09/12/2017 10:13 AM DIRECTOR DENTAL SERVICES) WBC 6.1 3.8 - 9.8 K/cumm [facility] RBC 4.85 3.90 - 5.00 M/cumm [facility] Hgb 14.0 12.1 - 15.1 g/dL [facility] Hct 42.0 36.1 - 44.3 % [facility] Mean Cellular Volume - CAM 86.5 80.0 - 97.6 fL [facility] Mean Cellular Hemoglobin - CAM 28.9 26.7 - 33.7 pg [facility] Mean Cellular Hemoglobin Concentration - CAM 33.4 32.7 - 35.5 g/dL [facility] Rdw 13.5 11.8 - 14.6 % [facility] Plt 136(L) 140 - 440 K/cumm [facility] Mean Platelet Volume - CAM 8.1 6.8 - 10.4 fL [facility] Neutrophil pct 55.7 38.7 - 74.5 % [facility] Lymphocyte pct 31.8 20.0 - 54.3 % [facility] Monos 9.9 4.3 - 13.5 % [facility] Eosinophil pct 2.0 0.0 - 6.0 % [facility] Basophil pct 0.6 0.0 - 3.0 % [facility] Neutrophil abs 3.4 1.8 - 6.6 K/cumm [facility] Lymphocyte abs 1.9 1.2 - 3.3 K/cumm [facility] Monocyte abs 0.6 0.2 - 1.2 K/cumm [facility] Eosinophils, abs 0.1 0.0 - 0.5 K/cumm [facility] Basophil abs 0.0 0.0 - 0.2 K/cumm [facility] NRBC 0.1 0.0 - 0.2 % [facility] NRBC abs 0.00 0.00 - 0.01 K/cumm [facility] Blood specimen (specimen) 09/12/2017 10:13 AM DIRECTOR DENTAL SERVICES 09/12/2017 10:13 AM DIRECTOR DENTAL SERVICES Narrative [facility] - 09/12/2017 10:16 AM DIRECTOR DENTAL SERVICES Eren Cr MD LAB BLOOD ORDERABLES Final Re sult [facility] Department [place] [address] * Chromogranin A (09/12/2017 10:12 AM DIRECTOR DENTAL SERVICES) Pathologist [facility] Chromogranin A 72 <93 ng/mL [facility] Comment: ADDITIONAL INFORMATION The testing method is a homogeneous time-resolved immunofluorescent assay. Analyte Specific Reagent: This test was developed and its performance characteristics determined by [facility]. It has not been cleared or approved by the U.S. Food and Drug Administration. ? Values obtained with different assay methods or kits may be different and cannot be used interchangeably. ? Test results cannot be interpreted as absolute evidence for the presence or absence of malignant disease. Test Performed by: [facility] [address] [place] [address] Blood specimen (specimen) 09/12/2017 10:12 AM DIRECTOR DENTAL SERVICES 09/12/2017 11:53 AM DIRECTOR DENTAL SERVICES Narrative [facility] - 09/13/2017 12:47 PM DIRECTOR DENTAL SERVICES us Eren Cr MD LAB BLOOD ORDERABLES Final Re sult [facility] Department [place] [address] * Comprehensive metabolic panel (09/12/2017 10:12 AM DIRECTOR DENTAL SERVICES) Sodium 143 135 - 145 mmol/L [facility] Potassium, pl 3.6 3.3 - 4.9 mmol/L [facility] CO2 28 22 - 32 mmol/L [facility] BUN 11 8 - 25 mg/dL [facility] Glucose 103 70 - 199 mg/dL [facility] Comment: Interpretive Data Fasting [...] Current interpretive data was last revised 2017. Creatinine 0.74 0.60 - 1.10 mg/dL [facility] Calcium 10.0 8.5 - 10.3 mg/dL [facility] Chloride 106 97 - 110 mmol/L [facility] Albumin 4.3 3.5 - 5.0 g/dL [facility] AST 34 10 - 45 Units/L [facility] ALT 23 7 - 45 Units/L [facility] Alk phos 88 40 - 130 Units/L [facility] Bilirubin, total 0.9 0.1 - 1.2 mg/dL [facility] Protein, pl 6.7 6.5 - 8.5 g/dL [facility] Anion gap 9 2 - 15 mmol/L [facility] Blood specimen (specimen) 09/12/2017 10:12 AM DIRECTOR DENTAL SERVICES 09/12/2017 10:34 AM DIRECTOR DENTAL SERVICES Narrative [facility] - 09/12/2017 11:08 AM DIRECTOR DENTAL SERVICES Eren Cr MD LAB BLOOD ORDERABLES Final Re sult Performing Organization Address [facility] Co de Phone Number [facility] [place] [employer] [place] [address] * Chromogranin A (08/15/2017 9:55 AM DIRECTOR DENTAL SERVICES) Pathologist [facility] Chromogranin A 62 <93 ng/mL [facility] Comment: ADDITIONAL INFORMATION The testing method is a homogeneous time-resolved immunofluorescent assay. Analyte Specific Reagent: This test was developed and its performance characteristics determined by [facility]. It has not been cleared or approved by the U.S. Food and Drug Administration. ? Values obtained with different assay methods or kits may be different and cannot be used interchangeably. ? Test results cannot be interpreted as absolute evidence for the presence or absence of malignant disease. Test Performed by: [place] [id number] [place] [address] Blood specimen (specimen) 08/15/2017 9:55 AM DIRECTOR DENTAL SERVICES 08/15/2017 2:09 PM DIRECTOR DENTAL SERVICES [facility]ative [facility] - 08/16/2017 3:45 PM DIRECTOR DENTAL SERVICES Eren Cr MD LAB BLOOD ORDERABLES Final Re sult Performing Organization Address [facility] Co de Phone Number [facility] Department [place] [employer] [place] [address] * Comprehensive metabolic panel (08/15/2017 9:55 AM DIRECTOR DENTAL SERVICES) Pathologist [facility] Sodium 141 135 - 145 mmol/L [facility] Potassium, pl 4.1 3.3 - 4.9 mmol/L [facility] CO2 30 22 - 32 mmol/L [facility] BUN 13 8 - 25 mg/dL [facility] Glucose 110 70 - 199 mg/dL [facility] Comment: Interpretive Data Fasting [...] Current interpretive data was last revised 2017. Creatinine 0.80 0.60 - 1.10 mg/dL [facility] Calcium 10.2 8.5 - 10.3 mg/dL [facility] Chloride 105 97 - 110 mmol/L [facility] Albumin 4.2 3.5 - 5.0 g/dL [facility] AST 20 10 - 45 Units/L [facility] ALT 20 7 - 45 Units/L [facility] Alk phos 98 40 - 130 Units/L [facility] Bilirubin, total 0.8 0.1 - 1.2 mg/dL [facility] Protein, pl 7.0 6.5 - 8.5 g/dL [facility] Anion gap 6 2 - 15 mmol/L [facility] Blood specimen (specimen) 08/15/2017 9:55 AM DIRECTOR DENTAL SERVICES 08/15/2017 10:22 AM DIRECTOR DENTAL SERVICES Narrative [facility] - 08/15/2017 10:50 AM [facility] us Eren Cr MD LAB BLOOD ORDERABLES Final Re sult [facility] One [facility] [place] [address] * Chromogranin A (07/18/2017 9:40 AM DIRECTOR DENTAL SERVICES) Chromogranin A 68 <93 ng/mL [facility] Comment: ADDITIONAL INFORMATION The testing method is a homogeneous time-resolved immunofluorescent assay. Analyte Specific Reagent: This test was developed and its performance characteristics determined by [facility]. It has not been cleared or approved by the U.S. Food and Drug Administration. ? Values obtained with different assay methods or kits may be different and cannot be used interchangeably. ? Test results cannot be interpreted as absolute evidence for the presence or absence of malignant disease. Test Performed by: [facility] [address] [place] [address] Blood specimen (specimen) 07/18/2017 9:40 AM DIRECTOR DENTAL SERVICES 07/18/2017 10:12 AM DIRECTOR DENTAL SERVICES Narrative [facility] - 07/22/2017 11:49 AM DIRECTOR DENTAL SERVICES Eren Cr MD LAB BLOOD ORDERABLES Final Re sult [facility] One [facility] Department [place] [address] * Comprehensive metabolic panel (07/18/2017 9:39 AM DIRECTOR DENTAL SERVICES) Sodium 138 135 - 145 mmol/L [facility] Potassium, pl 4.2 3.3 - 4.9 mmol/L [facility] CO2 28 22 - 32 mmol/L [facility] BUN 17 8 - 25 mg/dL [facility] Glucose 107 70 - 199 mg/dL [facility] Comment: Interpretive Data Fasting [...] Current interpretive data was last revised 2017. Creatinine 0.70 0.60 - 1.10 mg/dL [facility] Calcium 10.2 8.5 - 10.3 mg/dL [facility] Chloride 103 97 - 110 mmol/L [facility] Albumin 4.3 3.5 - 5.0 g/dL [facility] AST 24 10 - 45 Units/L [facility] ALT 17 7 - 45 Units/L [facility] Alk phos 98 40 - 130 Units/L [facility] Bilirubin, total 0.6 0.1 - 1.2 mg/dL [facility] Protein, pl 7.0 6.5 - 8.5 g/dL [facility] Anion gap 7 2 - 15 mmol/L [facility] Blood specimen (specimen) 07/18/2017 9:39 AM DIRECTOR D[employer]AL SERVICES 07/18/2017 9:46 AM DIRECTOR DENTAL SERVICES Narrative [facility] - 07/18/2017 10:06 AM DIRECTOR DENTAL SERVICES us Eren Cr MD LAB BLOOD ORDERABLES Final Re sult Performing Organization Address City/[facility]/ZIP Co de Phone Number [facility] Department [place] [address] * Morphology exam (07/18/2017 9:38 AM DIRECTOR DENTAL SERVICES) Pathologist [facility] Morphological Screen, CAM Original results obtained required verification by peripheral smear. [facility] Blood specimen (specimen) 07/18/2017 9:38 AM DIRECTOR DENTAL SERVICES 07/18/2017 9:46 AM DIRECTOR DENTAL SERVICES Narrative [facility] - 07/18/2017 10:17 AM DIRECTOR DENTAL SERVICES Eren Cr MD LAB BLOOD ORDERABLES Final Re sult [facility] [place] [employer] [place] [address] * (ABNORMAL) CBC with auto differential (07/18/2017 9:38 AM DIRECTOR DENTAL SERVICES) Pathologist [facility] WBC 8.4 3.8 - 9.8 K/cumm [facility] RBC 5.15(H) 3.90 - 5.00 M/cumm [facility] Hgb 14.9 12.1 - 15.1 g/dL [facility] Hct 44.6(H) 36.1 - 44.3 % [facility] Mean Cellular Volume - CAM 86.6 80.0 - 97.6 fL [facility] Mean Cellular Hemoglobin - CAM 29.0 26.7 - 33.7 pg [facility] Mean Cellular Hemoglobin Concentration - CAM 33.5 32.7 - 35.5 g/dL [facility] Rdw 13.5 11.8 - 14.6 % [facility] Plt 161 140 - 440 K/cumm [facility] Mean Platelet Volume - CAM 8.1 6.8 - 10.4 fL [facility] Neutrophil pct 52.3 38.7 - 74.5 % [facility] Lymphocyte pct 37.5 20.0 - 54.3 % [facility] Monos 7.7 4.3 - 13.5 % [facility] Eosinophil pct 1.5 0.0 - 6.0 % [facility] Basophil pct 1.0 0.0 - 3.0 % [facility] Neutrophil abs 4.4 1.8 - 6.6 K/cumm [facility] Lymphocyte abs 3.2 1.2 - 3.3 K/cumm [facility] Monocyte abs 0.6 0.2 - 1.2 K/cumm [facility] Eosinophils, abs 0.1 0.0 - 0.5 K/cumm [facility] Basophil abs 0.1 0.0 - 0.2 K/cumm [facility] NRBC 0.0 0.0 - 0.2 % [facility] NRBC abs 0.00 0.00 - 0.01 K/cumm [facility] Blood specimen (specimen) 07/18/2017 9:38 AM DIRECTOR DENTAL SERVICES 07/18/2017 9:42 AM DIRECTOR DENTAL SERVICES Narrative [facility] - 07/18/2017 9:51 AM DIRECTOR DENTAL SERVICES Eren Cr MD LAB BLOOD ORDERABLES Edited R esult - Final [facility] One [facility] Department [place] [address] * (ABNORMAL) Comprehensive metabolic panel (06/20/2017 10:30 AM DIRECTOR DENTAL SERVICES) Sodium 140 135 - 145 mmol/L [facility] Potassium, pl 3.9 3.3 - 4.9 mmol/L [facility] CO2 29 22 - 32 mmol/L [facility] BUN 14 8 - 25 mg/dL [facility] Glucose 92 70 - 199 mg/dL [facility] Comment: Interpretive Data Fasting [...] Current interpretive data was last revised 2017. Creatinine 0.73 0.60 - 1.10 mg/dL [facility] Calcium 10.4(H) 8.5 - 10.3 mg/dL [facility] Chloride 104 97 - 110 mmol/L [facility] Albumin 4.1 3.5 - 5.0 g/dL [facility] AST 25 10 - 45 Units/L [facility] ALT 17 7 - 45 Units/L [facility] Alk phos 98 40 - 130 Units/L [facility] Bilirubin, total 0.7 0.1 - 1.2 mg/dL [facility] Protein, pl 7.1 6.5 - 8.5 g/dL [facility] Anion gap 7 2 - 15 mmol/L [facility] Blood specimen (specimen) 06/20/2017 10:30 AM DIRECTOR DENTAL SERVICES 06/20/2017 10:31 AM DIRECTOR DENTAL SERVICES Narrative [facility] - 06/20/2017 10:54 AM DIRECTOR DENTAL SERVICES us Eren Cr MD LAB BLOOD ORDERABLES Final Re sult Performing Organization Address City/[facility]/ZIP Co de Phone Number [facility] Department [place] [address] * Morphology exam (06/20/2017 9:57 AM DIRECTOR DENTAL SERVICES) [facility] Morphological Screen, CAM Original results obtained required verification by peripheral smear. [facility] Blood specimen (specimen) 06/20/2017 9:57 AM DIRECTOR DENTAL SERVICES 06/20/2017 10:07 AM DIRECTOR DENTAL SERVICES Narrative [facility] - 06/20/2017 10:28 AM DIRECTOR DENTAL SERVICES Eren Cr MD LAB BLOOD ORDERABLES Final Re sult Performing Organization Address [facility] Co de Phone Number [facility] Department [place] [address] * (ABNORMAL) CBC with auto differential (06/20/2017 9:57 AM DIRECTOR DENTAL SERVICES) [facility] WBC 6.0 3.8 - 9.8 K/cumm [facility] RBC 4.92 3.90 - 5.00 M/cumm [facility] Hgb 14.5 12.1 - 15.1 g/dL [facility] Hct 42.4 36.1 - 44.3 % [facility] Mean Cellular Volume - CAM 86.1 80.0 - 97.6 fL [facility] Mean Cellular Hemoglobin - CAM 29.5 26.7 - 33.7 pg [facility] Mean Cellular Hemoglobin Concentration - CAM 34.3 32.7 - 35.5 g/dL [facility] Rdw 13.3 11.8 - 14.6 % [facility] Plt 139(L) 140 - 440 K/cumm [facility] Mean Platelet Volume - CAM 7.9 6.8 - 10.4 fL [facility] Neutrophil pct 56.0 38.7 - 74.5 % [facility] Lymphocyte pct 34.6 20.0 - 54.3 % [facility] Monos 7.1 4.3 - 13.5 % [facility] Eosinophil pct 1.7 0.0 - 6.0 % [facility] Basophil pct 0.6 0.0 - 3.0 % [facility] Neutrophil abs 3.3 1.8 - 6.6 K/cumm [facility] Lymphocyte abs 2.1 1.2 - 3.3 K/cumm [facility] Monocyte abs 0.4 0.2 - 1.2 K/cumm [facility] Eosinophils, abs 0.1 0.0 - 0.5 K/cumm [facility] Basophil abs 0.0 0.0 - 0.2 K/cumm [facility] NRBC 0.4(H) 0.0 - 0.2 % [facility] NRBC abs 0.03(H) 0.00 - 0.01 K/cumm [facility] Blood specimen (specimen) 06/20/2017 9:57 AM DIRECTOR DENTAL SERVICES 06/20/2017 10:00 AM DIRECTOR DENTAL SERVICES Narrative [facility] - 06/20/2017 10:08 AM DIRECTOR DENTAL SERVICES Eren Cr MD LAB BLOOD ORDERABLES Edited R esult - Final [facility] Department [place] [address] * Chromogranin A (06/20/2017 9:55 AM DIRECTOR DENTAL SERVICES) [facility] Chromogranin A 62 <93 ng/mL [facility] Comment: ADDITIONAL INFORMATION The testing method is a homogeneous time-resolved immunofluorescent assay. Analyte Specific Reagent: This test was developed and its performance characteristics determined by [facility]. It has not been cleared or approved by the U.S. Food and Drug Administration. ? Values obtained with different assay methods or kits may be different and cannot be used interchangeably. ? Test results cannot be interpreted as absolute evidence for the presence or absence of malignant disease. Test Performed by: [facility] [address] [place] [address] Blood specimen (specimen) 06/20/2017 9:55 AM DIRECTOR DENTAL SERVICES 06/20/2017 10:45 AM DIRECTOR DENTAL SERVICES Narrative [facility] - 06/21/2017 11:49 AM DIRECTOR DENTAL SERVICES Eren Cr MD LAB BLOOD ORDERABLES Final Re sult [facility] Department [place] [address] * (ABNORMAL) Comprehensive metabolic panel (05/23/2017 10:00 AM DIRECTOR DENTAL SERVICES) Sodium 142 135 - 145 mmol/L [facility] Potassium, pl 4.1 3.3 - 4.9 mmol/L [facility] CO2 30 22 - 32 mmol/L [facility] BUN 14 8 - 25 mg/dL [facility] Glucose 103 70 - 199 mg/dL [facility] Comment: Interpretive Data Fasting [...] Current interpretive data was last revised 2017. Creatinine 0.75 0.60 - 1.10 mg/dL [facility] Calcium 10.5(H) 8.5 - 10.3 mg/dL [facility] Chloride 105 97 - 110 mmol/L [facility] Albumin 4.2 3.5 - 5.0 g/dL [facility] AST 22 10 - 45 Units/L [facility] ALT 20 7 - 45 Units/L [facility] Alk phos 100 40 - 130 Units/L [facility] Bilirubin, total 0.7 0.1 - 1.2 mg/dL [facility] Protein, pl 7.0 6.5 - 8.5 g/dL [facility] Anion gap 7 2 - 15 mmol/L [facility] Blood specimen (specimen) 05/23/2017 10:00 AM DIRECTOR DENTAL SERVICES 05/23/2017 10:04 AM DIRECTOR DENTAL SERVICES Eren Cr MD LAB BLOOD ORDERABLES Final Re sult Performing Organization Address [facility] de Phone Number [facility] [employer] [place] [address] * Chromogranin A (05/23/2017 9:55 AM DIRECTOR DENTAL SERVICES) Pathologist [facility] Chromogranin A 57 <93 ng/mL [facility] Comment: ADDITIONAL INFORMATION The testing method is a homogeneous time-resolved immunofluorescent assay. Analyte Specific Reagent: This test was developed and its performance characteristics determined by [facility]. It has not been cleared or approved by the U.S. Food and Drug Administration. ? Values obtained with different assay methods or kits may be different and cannot be used interchangeably. ? Test results cannot be interpreted as absolute evidence for the presence or absence of malignant disease. Test Performed by: [facility] Laboratories - [facility] [address] [id number] Blood specimen (specimen) 05/23/2017 9:55 AM DIRECTOR DENTAL SERVICES 05/23/2017 10:40 AM DIRECTOR DENTAL SERVICES Eren Cr MD LAB BLOOD ORDERABLES Final Re sult Performing Organization Address [facility] de Phone Number [facility] [place] [employer] [place] [address] * (ABNORMAL) CBC with auto differential (05/23/2017 9:54 AM DIRECTOR DENTAL SERVICES) Pathologist [facility] WBC 7.7 3.8 - 9.8 K/cumm [facility] RBC 5.16(H) 3.90 - 5.00 M/cumm [facility] Hgb 15.1 12.1 - 15.1 g/dL [facility] Hct 44.6(H) 36.1 - 44.3 % [facility] Mean Cellular Volume - CAM 86.5 80.0 - 97.6 fL [facility] Mean Cellular Hemoglobin - CAM 29.3 26.7 - 33.7 pg [facility] Mean Cellular Hemoglobin Concentration - CAM 33.9 32.7 - 35.5 g/dL [facility] Rdw 13.0 11.8 - 14.6 % [facility] Plt 138(L) 140 - 440 K/cumm [facility] Mean Platelet Volume - CAM 8.1 6.8 - 10.4 fL [facility] Neutrophil pct 53.9 38.7 - 74.5 % [facility] Lymphocyte pct 37.2 20.0 - 54.3 % [facility] Monos 6.7 4.3 - 13.5 % [facility] Eosinophil pct 1.4 0.0 - 6.0 % [facility] Basophil pct 0.8 0.0 - 3.0 % [facility] Neutrophil abs 4.1 1.8 - 6.6 K/cumm [facility] Lymphocyte abs 2.9 1.2 - 3.3 K/cumm [facility] Monocyte abs 0.5 0.2 - 1.2 K/cumm [facility] Eosinophils, abs 0.1 0.0 - 0.5 K/cumm [facility] Basophil abs 0.1 0.0 - 0.2 K/cumm [facility] NRBC 0.3(H) 0.0 - 0.2 % [facility] NRBC abs 0.02(H) 0.00 - 0.01 K/cumm [facility] Blood specimen (specimen) 05/23/2017 9:54 AM DIRECTOR DENTAL SERVICES 05/23/2017 9:57 AM DIRECTOR DENTAL SERVICES us Eren Cr MD LAB BLOOD ORDERABLES Final Re sult [facility] One [facility] [place] [address] * (ABNORMAL) Comprehensive metabolic panel (04/29/2017 10:35 AM CDT) [facility] Sodium 140 135 - 145 mmol/L [facility] Potassium, pl 3.8 3.3 - 4.9 mmol/L [facility] CO2 28 22 - 32 mmol/L [facility] BUN 13 8 - 25 mg/dL [facility] Glucose 153 70 - 199 mg/dL [facility] Creatinine 0.67 0.60 - 1.10 mg/dL [facility] Calcium 10.5(H) 8.5 - 10.3 mg/dL [facility] Chloride 101 97 - 110 mmol/L [facility] Albumin 4.3 3.5 - 5.0 g/dL [facility] AST 24 10 - 45 Units/L [facility] ALT 20 7 - 45 Units/L [facility] Alk phos 100 40 - 130 Units/L [facility] Bilirubin, total 0.7 0.1 - 1.2 mg/dL [facility] Protein, pl 7.0 6.5 - 8.5 g/dL [facility] Anion gap 11 2 - 15 mmol/L [facility] Blood specimen (specimen) 04/29/2017 10:35 AM CDT 04/29/2017 10:38 AM CDT us Eren Cr MD LAB BLOOD ORDERABLES Final Re sult [facility] One [facility] Department [place] [address] * (ABNORMAL) CBC with auto differential (04/29/2017 10:05 AM CDT) [facility] WBC 7.7 3.8 - 9.8 K/cumm [facility] RBC 4.91 3.90 - 5.00 M/cumm [facility] Hgb 14.4 12.1 - 15.1 g/dL [facility] Hct 42.5 36.1 - 44.3 % [facility] Mean Cellular Volume - CAM 86.6 80.0 - 97.6 fL [facility] Mean Cellular Hemoglobin - CAM 29.4 26.7 - 33.7 pg [facility] Mean Cellular Hemoglobin Concentration - CAM 33.9 32.7 - 35.5 g/dL [facility] Rdw 13.2 11.8 - 14.6 % [facility] Plt 143 140 - 440 K/cumm [facility] Mean Platelet Volume - CAM 7.8 6.8 - 10.4 fL [facility] Neutrophil pct 57.6 38.7 - 74.5 % [facility] Lymphocyte pct 34.4 20.0 - 54.3 % [facility] Monos 6.1 4.3 - 13.5 % [facility] Eosinophil pct 1.5 0.0 - 6.0 % [facility] Basophil pct 0.4 0.0 - 3.0 % [facility] Neutrophil abs 4.4 1.8 - 6.6 K/cumm [facility] Lymphocyte abs 2.6 1.2 - 3.3 K/cumm [facility] Monocyte abs 0.5 0.2 - 1.2 K/cumm [facility] Eosinophils, abs 0.1 0.0 - 0.5 K/cumm [facility] Basophil abs 0.0 0.0 - 0.2 K/cumm [facility] NRBC 0.3(H) 0.0 - 0.2 % [facility] NRBC abs 0.03(H) 0.00 - 0.01 K/cumm [facility] Blood specimen (specimen) 04/29/2017 10:05 AM CDT 04/29/2017 10:06 AM CDT us Eren Cr MD LAB BLOOD ORDERABLES Final Re sult [facility] Department [place] [address] * Chromogranin A (04/29/2017 10:05 AM CDT) Pathologist [facility] Chromogranin A 59 <93 ng/mL [facility] Comment: ADDITIONAL INFORMATION The testing method is a homogeneous time-resolved immunofluorescent assay. Analyte Specific Reagent: This test was developed and its performance characteristics determined by [facility]. It has not been cleared or approved by the U.S. Food and Drug Administration. ? Values obtained with different assay methods or kits may be different and cannot be used interchangeably. ? Test results cannot be interpreted as absolute evidence for the presence or absence of malignant disease. Test Performed by: [facility] [address] [place] [address] Blood specimen (specimen) 04/29/2017 10:05 AM CDT 04/29/2017 10:37 AM CDT us Eren Cr MD LAB BLOOD ORDERABLES Final Re sult [facility] Department [place] [address] * (ABNORMAL) CBC with auto differential (03/28/2017 9:51 AM CDT) WBC 9.1 3.8 - 9.8 K/cumm [facility] RBC 5.11(H) 3.90 - 5.00 M/cumm [facility] Hgb 15.2(H) 12.1 - 15.1 g/dL [facility] Hct 44.5(H) 36.1 - 44.3 % [facility] Mean Cellular Volume - CAM 87.0 80.0 - 97.6 fL [facility] Mean Cellular Hemoglobin - CAM 29.8 26.7 - 33.7 pg [facility] Mean Cellular Hemoglobin Concentration - CAM 34.3 32.7 - 35.5 g/dL [facility] Rdw 13.0 11.8 - 14.6 % [facility] Plt 145 140 - 440 K/cumm [facility] Mean Platelet Volume - CAM 8.1 6.8 - 10.4 fL [facility] Neutrophil pct 57.8 38.7 - 74.5 % [facility] Lymphocyte pct 34.3 20.0 - 54.3 % [facility] Monos 6.3 4.3 - 13.5 % [facility] Eosinophil pct 1.1 0.0 - 6.0 % [facility] Basophil pct 0.5 0.0 - 3.0 % [facility] Neutrophil abs 5.2 1.8 - 6.6 K/cumm [facility] Lymphocyte abs 3.1 1.2 - 3.3 K/cumm [facility] Monocyte abs 0.6 0.2 - 1.2 K/cumm [facility] Eosinophils, abs 0.1 0.0 - 0.5 K/cumm [facility] Basophil abs 0.0 0.0 - 0.2 K/cumm [facility] NRBC 0.7(H) 0.0 - 0.2 % [facility] NRBC abs 0.07(H) 0.00 - 0.01 K/cumm [facility] Blood specimen (specimen) 03/28/2017 9:51 AM CDT 03/28/2017 9:56 AM CDT us Eren Cr MD LAB BLOOD ORDERABLES Final Re sult [facility] One [facility] Department [place] [address] * (ABNORMAL) Comprehensive metabolic panel (03/28/2017 9:50 AM CDT) Sodium 138 135 - 145 mmol/L [facility] Potassium, pl 3.6 3.3 - 4.9 mmol/L [facility] CO2 25 22 - 32 mmol/L [facility] BUN 14 8 - 25 mg/dL [facility] Glucose 126 70 - 199 mg/dL [facility] Creatinine 0.67 0.60 - 1.10 mg/dL [facility] Calcium 10.4(H) 8.5 - 10.3 mg/dL [facility] Chloride 104 97 - 110 mmol/L [facility] Albumin 4.2 3.5 - 5.0 g/dL [facility] AST 22 10 - 45 Units/L [facility] ALT 16 7 - 45 Units/L [facility] Alk phos 99 40 - 130 Units/L [facility] Bilirubin, total 0.6 0.1 - 1.2 mg/dL [facility] Protein, pl 7.0 6.5 - 8.5 g/dL [facility] Anion gap 9 2 - 15 mmol/L [facility] Blood specimen (specimen) 03/28/2017 9:50 AM CDT 03/28/2017 10:06 AM CDT Eren Cr MD LAB BLOOD ORDERABLES Final Re sult Performing Organization Address [facility] Co de Phone Number [facility] [place] [address] * Chromogranin A (03/28/2017 9:40 AM CDT) Chromogranin A 58 <93 ng/mL [facility] Comment: ADDITIONAL INFORMATION The testing method is a homogeneous time-resolved immunofluorescent assay. Analyte Specific Reagent: This test was developed and its performance characteristics determined by [facility]. It has not been cleared or approved by the U.S. Food and Drug Administration. ? Values obtained with different assay methods or kits may be different and cannot be used interchangeably. ? Test results cannot be interpreted as absolute evidence for the presence or absence of malignant disease. Test Performed by: [address] [address] Blood specimen (specimen) 03/28/2017 9:40 AM CDT 03/28/2017 11:43 AM CDT Eren Cr MD LAB BLOOD ORDERABLES Final Re sult Performing Organization Address [facility] Co de Phone Number [facility] [employer] [address] * (ABNORMAL) Comprehensive metabolic panel (02/26/2017 11:42 AM CDT) Sodium 141 135 - 145 mmol/L [facility] Potassium, pl 4.7 3.3 - 4.9 mmol/L [facility] CO2 31 22 - 32 mmol/L [facility] BUN 14 8 - 25 mg/dL [facility] Glucose 101 70 - 199 mg/dL [facility] Creatinine 0.74 0.60 - 1.10 mg/dL [facility] Calcium 10.6(H) 8.5 - 10.3 mg/dL [facility] Chloride 103 97 - 110 mmol/L [facility] Albumin 4.4 3.5 - 5.0 g/dL [facility] AST 25 10 - 45 Units/L [facility] ALT 21 7 - 45 Units/L [facility] Alk phos 97 40 - 130 Units/L [facility] Bilirubin, total 0.5 0.1 - 1.2 mg/dL [facility] Protein, pl 7.2 6.5 - 8.5 g/dL [facility] Anion gap 7 2 - 15 mmol/L [facility] Blood specimen (specimen) 02/26/2017 11:42 AM CDT 02/26/2017 11:48 AM CDT Eren Cr MD LAB BLOOD ORDERABLES Final Re sult [facility] Department [place] [address] * Chromogranin A (02/26/2017 11:42 AM CDT) Chromogranin A 56 <93 ng/mL [facility] Comment: ADDITIONAL INFORMATION The testing method is a homogeneous time-resolved immunofluorescent assay. Analyte Specific Reagent: This test was developed and its performance characteristics determined by [facility]. It has not been cleared or approved by the U.S. Food and Drug Administration. ? Values obtained with different assay methods or kits may be different and cannot be used interchangeably. ? Test results cannot be interpreted as absolute evidence for the presence or absence of malignant disease. Test Performed by: [facility] - [address] [address] Blood specimen (specimen) 02/26/2017 11:42 AM CDT 02/26/2017 12:15 PM CDT us Eren Cr MD LAB BLOOD ORDERABLES Final Re sult [facility] Department [place] [address] * (ABNORMAL) CBC with auto differential (02/26/2017 11:41 AM CDT) Pathologist [facility] WBC 7.2 3.8 - 9.8 K/cumm [facility] RBC 5.05(H) 3.90 - 5.00 M/cumm [facility] Hgb 14.6 12.1 - 15.1 g/dL [facility] Hct 42.9 36.1 - 44.3 % [facility] Mean Cellular Volume - CAM 84.8 80.0 - 97.6 fL [facility] Mean Cellular Hemoglobin - CAM 28.9 26.7 - 33.7 pg [facility] Mean Cellular Hemoglobin Concentration - CAM 34.1 32.7 - 35.5 g/dL [facility] Rdw 13.1 11.8 - 14.6 % [facility] Plt 151 140 - 440 K/cumm [facility] Mean Platelet Volume - CAM 7.8 6.8 - 10.4 fL [facility] Neutrophil pct 54.5 38.7 - 74.5 % [facility] Lymphocyte pct 36.7 20.0 - 54.3 % [facility] Monos 6.8 4.3 - 13.5 % [facility] Eosinophil pct 1.3 0.0 - 6.0 % [facility] Basophil pct 0.7 0.0 - 3.0 % [facility] Neutrophil abs 3.9 1.8 - 6.6 K/cumm [facility] Lymphocyte abs 2.6 1.2 - 3.3 K/cumm [facility] Monocyte abs 0.5 0.2 - 1.2 K/cumm [facility] Eosinophils, abs 0.1 0.0 - 0.5 K/cumm [facility] Basophil abs 0.1 0.0 - 0.2 K/cumm [facility] NRBC 0.3(H) 0.0 - 0.2 % [facility] NRBC abs 0.02(H) 0.00 - 0.01 K/cumm [facility] Blood specimen (specimen) 02/26/2017 11:41 AM CDT 02/26/2017 11:44 AM CDT Eren Cr MD LAB BLOOD ORDERABLES Final Re sult [facility] Department [place] [address] * CBC with auto differential (01/29/2017 11:52 AM CDT) WBC 7.8 3.8 - 9.8 K/cumm [facility] RBC 4.98 3.90 - 5.00 M/cumm [facility] Hgb 14.4 12.1 - 15.1 g/dL [facility] Hct 42.3 36.1 - 44.3 % [facility] Mean Cellular Volume - CAM 85.0 80.0 - 97.6 fL [facility] Mean Cellular Hemoglobin - CAM 28.9 26.7 - 33.7 pg [facility] Mean Cellular Hemoglobin Concentration - CAM 34.1 32.7 - 35.5 g/dL [facility] Rdw 13.8 11.8 - 14.6 % [facility] Plt 141 140 - 440 K/cumm [facility] Mean Platelet Volume - CAM 8.1 6.8 - 10.4 fL [facility] Neutrophil pct 55.1 38.7 - 74.5 % [facility] Lymphocyte pct 35.3 20.0 - 54.3 % [facility] Monos 7.9 4.3 - 13.5 % [facility] Eosinophil pct 1.1 0.0 - 6.0 % [facility] Basophil pct 0.6 0.0 - 3.0 % [facility] Neutrophil abs 4.3 1.8 - 6.6 K/cumm [facility] Lymphocyte abs 2.8 1.2 - 3.3 K/cumm [facility] Monocyte abs 0.6 0.2 - 1.2 K/cumm [facility] Eosinophils, abs 0.1 0.0 - 0.5 K/cumm [facility] Basophil abs 0.0 0.0 - 0.2 K/cumm [facility] NRBC 0.1 0.0 - 0.2 % [facility] NRBC abs 0.01 0.00 - 0.01 K/cumm [facility] Blood specimen (specimen) 01/29/2017 11:52 AM CDT 01/29/2017 11:55 AM CDT us Eren Cr MD LAB BLOOD ORDERABLES Final Re sult [facility] Department [place] [address] * (ABNORMAL) Comprehensive metabolic panel (01/29/2017 11:45 AM CDT) Sodium 139 135 - 145 mmol/L [facility] Potassium, pl 3.9 3.3 - 4.9 mmol/L [facility] CO2 27 22 - 32 mmol/L [facility] BUN 14 8 - 25 mg/dL [facility] Glucose 106 70 - 199 mg/dL [facility] Creatinine 0.87 0.60 - 1.10 mg/dL [facility] Calcium 11.0(H) 8.5 - 10.3 mg/dL [facility] Chloride 102 97 - 110 mmol/L [facility] Albumin 4.2 3.5 - 5.0 g/dL [facility] AST 24 10 - 45 Units/L [facility] ALT 18 7 - 45 Units/L [facility] Alk phos 96 40 - 130 Units/L [facility] Bilirubin, total 0.5 0.1 - 1.2 mg/dL [facility] Protein, pl 7.0 6.5 - 8.5 g/dL [facility] Anion gap 10 2 - 15 mmol/L [facility] Blood specimen (specimen) 01/29/2017 11:45 AM CDT 01/29/2017 12:03 PM CDT Eren Cr MD LAB BLOOD ORDERABLES Final Re sult Performing Organization Address [facility] de Phone Number JASON BLACK [facility] Department [place] [employer] [place] [address] * Chromogranin A (01/29/2017 11:45 AM CDT) Chromogranin A 62 <93 ng/mL [facility] Comment: ADDITIONAL INFORMATION The testing method is a homogeneous time-resolved immunofluorescent assay. Analyte Specific Reagent: This test was developed and its performance characteristics determined by [facility]. It has not been cleared or approved by the U.S. Food and Drug Administration. ? Values obtained with different assay methods or kits may be different and cannot be used interchangeably. ? Test results cannot be interpreted as absolute evidence for the presence or absence of malignant disease. Test Performed by: [place] [address] Blood specimen (specimen) 01/29/2017 11:45 AM CDT 01/29/2017 1:10 PM CDT Eren Cr MD LAB BLOOD ORDERABLES Final Re sult Performing Organization Address 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
--- OUTSIDE RECORDS SUMMARY | 2024-06-25 22:38 | XMS_ITS | Encounter Summary ---
Author Organization [facility] Address [address] [place] [address] Care Team Providers Care Spout Liner Helper Name Role Phone Julio César Briseno MD Primary Care Provider [phone] Reason for Referral * Diagnostic Imaging (Routine) - Closed Specialty Diagnoses / Procedures Referred By Contac t Referred To Contact Radiology Diagnoses Neuroendocrine carcinoma of small bowel (HCC) Procedures CT Chest Abdomen Pelvis W Contrast Eren Cr MD Phone: tel: fax: [address] [phone] Referral ID Status Reason Start Date Expiration Date Visits Re quested Visits Authorized [id number] Closed 04/14/2018 10/24/2019 1 1 Reason for Visit * Diagnostic Imaging (Routine) - Closed Specialty Diagnoses / Procedures Referred By Contac t Referred To Contact Radiology Diagnoses Neuroendocrine carcinoma of small bowel (HCC) Procedures CT Chest Abdomen Pelvis W Contrast Eren Cr MD Phone: tel: fax: [address] [phone] Referral ID Status Reason Start Date Expiration Date Visits Re quested Visits Authorized [id number] Closed 04/14/2018 10/24/2019 1 1 Encounter Details Date Type Department Care Team (Latest Contact Info) Description 04/21/2018 8:34 AM CDT - 04/21/2018 11:59 PM CDT Hospital Encounter [facility] [address] [place] [address] Eren Cr MD [address] 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 9 coenzyme [id number] E 100-5 mg-unit capsuleIndicatio ns:supplement Take 1 tablet by mouth business intelligence manager before breakfast [address] (CYMBALTA) 30 mg capsule daily. 9 fesoterodine ER (TOVIAZ) 4 mg tablet extended release 24 hr Take 4 mg by mouth. 11/28/2017 8 octreotide (SandoSTATIN) 50 mcg/mL (1 mL) syringe every 30 (thirty) days 04/09/2016 2 olmesartan-hydro chlorothiazide (BENICAR HCT) 40-25 mg per tablet Take 1 tablet by mouth daily. 3 04/18/2018 9 PROCTOSOL HC 2.5 % rectal cream APPLY RECTALLY THREE TIMES A DAY 0 09/25/2017 9 valsartan-hydroC HLOROthiazide (DIOVAN-HCT) 160-12.5 mg per tabletIndication s:hypertension daily. 8 wheat dextrin (BENEFIBER CLEAR SF, DEXTRIN, ORAL) 9 documented as of this encounter Discharge Disposition Disposition Code Departure Means Destination Discharge to home or self care documented in this encounter Plan of Treatment Not on file documented as of this encounter Procedures Procedure Name Priority Date/Time Associated Diagnosis Comments CT CHEST ABDOMEN PELVIS W CONTRAST Schedule Routine, Read Routine (OP Routine) 04/21/2018 9:33 AM CDT Neuroendocrine carcinoma of small bowel (CMS/HCC) documented in this encounter Results * CT Chest Abdomen Pelvis W Contrast (04/21/2018 9:33 AM CDT) Anatomical Region Laterality Modality Body N/A Computed Tomogra phy 04/21/2018 10:1 4 AM CDT Impressions 04/21/2018 12:03 PM CDT Stable pulmonary nodules, hepatic lesions, perihepatic implants, and peritoneal deposits with unchanged retroperitoneal, right supraclavicular, and mediastinal lymphadenopathy consistent with stable metastatic disease. ?? Dictated by: Anthony Kumari M.D. Electronically signed by: Fly Benavidez M.D. Narrative 04/21/2018 12:03 PM CDT EXAMINATION: ??Computed tomography of the chest, abdomen and pelvis with intravenous contrast HISTORY: Metastatic Neuroendocrine carcinoma of the small bowel. Evaluate treatment response. TECHNIQUE: ??Transaxial computed tomographic images of the chest, abdomen and pelvis were obtained with intravenous contrast according to the standard protocol after the uneventful administration of 100 mL Opti-Ray 350 intravenous contrast. COMPARISON: CT chest abdomen pelvis 10/21/2017 FINDINGS: ?? Chest: The visualized portions of the thyroid are normal. ??The aorta and great vessels are normal. ??There is no central pulmonary embolism. There is no axillary or internal mammary lymphadenopathy. ??Small hiatal hernia is seen. ??The heart is normal in size with trace pericardial effusion. 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 Unchanged right supraclavicular and right paratracheal lymphadenopathy are seen. ??Unchanged 9 mm right lower lobe nodule is seen on slice position -245. ??Unchanged 4 mm left upper lobe pulmonary nodule is seen on slice position -151. ??Bilateral intrapulmonary fissural lymph nodes are seen, unchanged. ??Minimal atelectasis is seen. ??There is no focal consolidation. ??There is no pleural effusion or pneumothorax. Abdomen/Pelvis: Rim-enhancing lesion is seen in the hepatic segment 7 on slice position -278 measuring 2.6 cm with a smaller hyperenhancing lesion in hepatic segment 2 seen on slice position -253, both are unchanged and better seen on today's exam compared to the prior due to the phase of contrast. ??Unchanged capsular liver lesion is seen on slice position -321. The gallbladder is surgically absent. ??There is mild intra and extrahepatic biliary ductal dilatation, expected status post cholecystectomy. ??The spleen, adrenal glands and kidneys are normal. Fat-containing ventral hernia is seen. ??Colonic diverticulosis without diverticulitis. ??The uterus is surgically absent. Unchanged enhancing soft tissue nodules are seen along the bilateral vaginal cuffs, sigmoid mesocolon, and anterior peritoneum. ??Unchanged retroperitoneal lymphadenopathy is noted. Procedure Note Fly Benavidez MD - 04/21/2018 EXAMINATION: Computed tomography of the chest, abdomen and pelvis with intravenous contrast HISTORY: Metastatic Neuroendocrine carcinoma of the small bowel. Evaluate treatment response. TECHNIQUE: Transaxial computed tomographic images of the chest, abdomen and pelvis were obtained with intravenous contrast according to the standard protocol after the uneventful administration of 100 mL Opti-Ray 350 intravenous contrast. COMPARISON: CT chest abdomen pelvis 10/21/2017 FINDINGS: Chest: The visualized portions of the thyroid are normal. The aorta and great vessels are normal. There is no central pulmonary embolism. There is no axillary or internal mammary lymphadenopathy. Small hiatal hernia is seen. The heart is normal in size with trace pericardial effusion. 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 Unchanged right supraclavicular and right paratracheal lymphadenopathy are seen. Unchanged 9 mm right lower lobe nodule is seen on slice position -245. Unchanged 4 mm left upper lobe pulmonary nodule is seen on slice position -151. Bilateral intrapulmonary fissural lymph nodes are seen, unchanged. Minimal atelectasis is seen. There is no focal consolidation. There is no pleural effusion or pneumothorax. Abdomen/Pelvis: Rim-enhancing lesion is seen in the hepatic segment 7 on slice position -278 measuring 2.6 cm with a smaller hyperenhancing lesion in hepatic segment 2 seen on slice position -253, both are unchanged and better seen on today's exam compared to the prior due to the phase of contrast. Unchanged capsular liver lesion is seen on slice position -321. The gallbladder is surgically absent. There is mild intra and extrahepatic biliary ductal dilatation, expected status post cholecystectomy. The spleen, adrenal glands and kidneys are normal. Fat-containing ventral hernia is seen. Colonic diverticulosis without diverticulitis. The uterus is surgically absent. Unchanged enhancing soft tissue nodules are seen along the bilateral vaginal cuffs, sigmoid mesocolon, and anterior peritoneum. Unchanged retroperitoneal lymphadenopathy is noted. IMPRESSION: Stable pulmonary nodules, hepatic lesions, perihepatic implants, and peritoneal deposits with unchanged retroperitoneal, right supraclavicular, and mediastinal lymphadenopathy consistent with stable metastatic disease. Dictated by: Anthony Kumari M.D. Electronically signed by: Fly Benavidez M.D. us Eren rC MD IMG CT PROCEDURES Final Resul t documented in this encounter Visit Diagnoses Diagnosis Neuroendocrine carcinoma of small bowel (HCC) documented in this encounter Administered Medications Inactive Administered Medications - up to 3 most recent administrations Medication Order MAR Action Action Date Dose Rate Site ioversol (OPTIRAY 350) syringe syringe 100 mL 100 mL, intravenous, Once in imaging, contrast, Starting on 04/21/18 at 0926, For 1 dose Given 04/21/2018 9:29 AM CDT 100 mL documented in this encounter Orders Medications Ordered That Brett ht Not Have Been Administered Count Last Ordered Date First Ordered Date ioversol (OPTIRAY 350) syrin ge syringe 100 mL 1 04/21/2018 documented in this encounter Care Teams Spout Liner Helper Relationship Specialty Start Date End Date Julio César Briseno MD PCP - General 10/01/16 documented as of this encounter
--- OUTSIDE RECORDS SUMMARY | 2024-06-25 22:38 | XMS_ITS | Encounter Summary ---
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) Procedures [place] OCTREOTIDE INJECTION, DEPOT Octreotide 28 Day Cycles - Carcinoid Eren Cr MD [address] [facility] [address] [place] [address] Phone: tel: fax: [address] [address] Phone: tel: fax: Referral ID Status Reason Start Date Expiration Date V isits Requested Visits Authorized [id number] Authorized 11/28/2017 02/05/2025 1 150 Encounter Details Date Type Department Care Team (Late st Contact Info) Description 03/24/2018 9:15 AM CDT Lab [facility] Oncology [address] [facility] 7th Floor [address] [place] [id number] Malignant neoplasm metastatic to liver (CMS/HCC); Neuroendocrine carcinoma (CMS/HCC) Social History Tobacco Use Types Packs/Day Years Used Date Smoking Tobacco: Never Smokeless Tobacco: Never Alcohol Use Standard Drinks/Week Comments Yes 1 (1 standard drink = 0.6 oz pur e alcohol) Comments No Sex and Gender Information Value Date Recorded Sex Assigned at Not on file Legal 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 Gender Identity Not on file Sexual Orientation Straight 02/19/2021 9: 29 AM CDT Occupation Industry Job Start Date Job End Date retired Not on file Not on file Not on file documented as of this encounter Plan of Treatment Not on file documented as of this encounter Procedures Procedure Name Priority Date/Time Associated Diagnosis Comments DIFFERENTIAL AUTO STAT 03/24/2018 9:0 5 AM CDT Malignant neoplasm metastatic to liver (CMS/HCC) Neuroendocrine carcinoma (CMS/HCC) CBC WITH AUTO DIFFERENTIAL STAT 03/24/2018 9:05 AM CDT Malignant neoplasm metastatic to liver (CMS/HCC) Neuroendocrine carcinoma (CMS/HCC) CHROMOGRANIN A Routine 03/24/2018 9:02 AM CDT Malignant neoplasm metastatic to liver (CMS/HCC) Neuroendocrine carcinoma (CMS/HCC) COMPREHENSIVE METABOLIC PANEL STAT 03/24/2018 9:02 AM CDT Malignant neoplasm metastatic to liver (CMS/HCC) Neuroendocrine carcinoma (CMS/HCC) documented in this encounter Results * Differential, auto (03/24/2018 9:05 AM CDT) Neutrophil abs 3.6 1.8 - 6.6 K/cumm JASON [facility] Comment:Testing performed by : [facility], [address] [place] [phone] Lymphocyte abs 2.4 1.2 - 3.3 K/cumm J[facility]ON [facility] Comment:Testing performed by : [facility], [address] [place] [phone] Monocyte abs 0.6 0.2 - 1.2 K/cumm [facility] Comment:Testing performed by : [facility], [address] [place] [phone] Eosinophil abs 0.1 0.0 - 0.5 K/cumm JASON [facility] Comment:Testing performed by : [facility], [address] [place] [phone] Basophil abs 0.0 0.0 - 0.2 K/cumm JASON [facility] Comment:Testing performed by : [facility], [address] [place] [phone] Neutrophil pct 53.2 % JASON [facility] Comment: Interpretive Data Percent cell count reference ranges are not reported, since discordance with absolute values may lead to misinterpretation of CBC data. Current Interpretive Data was last revised on 2017. Testing performed by: [facility], [address] [place] [phone] Lymphocyte pct 35.7 % [facility]AS[facility] Comment: Interpretive Data Percent cell count reference ranges are not reported, since discordance with absolute values may lead to misinterpretation of CBC data. Current Interpretive Data was last revised on 2017. Testing performed by: [facility], [address] [place] [phone] Monocyte pct 9.4 % [facility] Comment:Testing performed by : [facility], [address] [place] [phone] Eosinophil pct 1.1 % [facility] Comment:Testing performed by : [facility], [address] [place] [phone] Basophil pct 0.6 % [facility]AS[facility] Comment:Testing performed by : [facility], [address] [place] [phone] Blood specimen (specimen) 03/24/2018 9:05 AM CDT 03/24/2018 9:09 AM CDT [facility] - 03/24/2018 9:15 AM CDT us Eren Cr MD LAB BLOOD ORDERABLES Final Re sult [facility] Department [place] [address] * (ABNORMAL) CBC with auto differential (03/24/2018 9:05 AM CDT) WBC 6.9 3.8 - 9.8 K/cumm [facility] Comment:Testing performed by : [place] [address] Hgb 14.3 12.1 - 15.1 g/dL [facility] Comment:Testing performed by : [place] [address] Hct 41.4 36.1 - 44.3 % [facility] Comment:Testing performed by : [place] [address] Plt 139(L) 140 - 440 K/cumm [facility] Comment:Testing performed by : [place] [address] MPV 7.5 6.8 - 10.4 fL [facility] Comment:Testing performed by : [place] [address] RBC 4.92 3.90 - 5.00 M/cumm [facility] Comment:Testing performed by : [place] [address] MCV 84.1 80.0 - 97.6 fL [facility] Comment:Testing performed by : [place] [address] MCH 29.1 26.7 - 33.7 pg [facility] Comment:Testing performed by : [place] [address] MCHC 34.6 32.7 - 35.5 g/dL [facility] Comment:Testing performed by : [place] [address] RDW CV 13.5 11.8 - 14.6 % [facility] Comment:Testing performed by : [place] [address] NRBC abs 0.01 0.00 - 0.01 K/cumm [facility] Comment:Testing performed by : [place] [address] Blood specimen (specimen) 03/24/2018 9:05 AM CDT 03/24/2018 9:09 AM CDT Narrative [facility] - 03/24/2018 9:15 AM CDT Eren Cr MD LAB BLOOD ORDERABLES Final Re sult Performing Organization Address City/[facility]/ZIP Co de Phone Number [facility] Department [place] [address] * Chromogranin A (03/24/2018 9:02 AM CDT) Chromogranin A 90 <93 ng/mL [facility] Comment: A reagent change was implemented on [...] of malignant disease. Test Performed by: [facility] [place] [id number] [place] [address] Blood specimen (specimen) 03/24/2018 9:02 AM CDT 03/24/2018 10:16 AM CDT Narrative [facility] - 03/25/2018 11:25 AM CDT Eren Cr MD LAB BLOOD ORDERABLES Final Re sult Performing Organization Address City/[facility]/ZIP Co de Phone Number [facility] Department [place] [address] * (ABNORMAL) Comprehensive metabolic panel (03/24/2018 9:02 AM CDT) Sodium 142 135 - 145 mmol/L [facility] Potassium, pl 3.5 3.3 - 4.9 mmol/L [facility] Chloride 105 97 - 110 mmol/L [facility] CO2 30 22 - 32 mmol/L [facility] Anion gap 7 2 - 15 mmol/L [facility] BUN 13 8 - 25 mg/dL [facility] Creatinine 0.83 0.60 - 1.10 mg/dL [facility] Glucose 86 70 - 199 mg/dL [facility] Comment: Interpretive Data Fasting glucose [...] 2017. Calcium 10.4(H) 8.5 - 10.3 mg/dL [facility] Bilirubin, total 0.6 0.1 - 1.2 mg/dL [facility] Protein, pl 6.8 6.5 - 8.5 g/dL [facility] Albumin 4.3 3.5 - 5.0 g/dL [facility] Alk phos 90 40 - 130 Units/L [facility] ALT 16 7 - 45 Units/L [facility] AST 23 10 - 45 Units/L [facility] Blood specimen (specimen) 03/24/2018 9:02 AM CDT 03/24/2018 9:36 AM CDT Narrative [facility] - 03/24/2018 10:05 AM CDT us Eren Cr MD LAB BLOOD ORDERABLES Final Re sult [facility] Department [place] [address] documented in this encounter Visit Diagnoses Diagnosis 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
--- OUTSIDE RECORDS SUMMARY | 2024-06-25 22:38 | XMS_ITS | Encounter Summary ---
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) Procedures [place] OCTREOTIDE INJECTION, DEPOT Octreotide 28 Day Cycles - Carcinoid Eren Cr MD [address] [facility] [address] [place] [address] Phone: tel: fax: [address] [address] Phone: tel: fax: Referral ID Status Reason Start Date Expiration Date V isits Requested Visits Authorized [id number] Authorized 11/28/2017 02/05/2025 1 150 Encounter Details Date Type Department Care Team (Late st Contact Info) Description 03/24/2018 10:00 AM CDT Infusion [facility] Oncology [facility] Advanced Medicine 7th [place] [address] 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); Neuroendocrine carcinoma (CMS/HCC) Social History Tobacco Use Types Packs/Day Years Used Date Smoking Tobacco: Never Smokeless Tobacco: Never Alcohol Use Standard Drinks/Week Comments Yes 1 (1 standard drink = 0.6 oz pur e alcohol) Comments No Sex and Gender Information Value Date Recorded Sex Assigned at Not on file 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 Gender Identity Not on file Sexual Orientation Straight 02/19/2021 9: 29 AM CDT Occupation Industry Job Start Date Job End Date retired Not on file Not on file Not on file documented as of this encounter Last Filed Vital Signs Vital Sign Reading Time Taken Comments Blood Pressure 168/87 03/24/2018 9:29 AM CDT Pulse 80 03/24/2018 9:29 AM CDT Temperature 36.8 ??C (98.2 ??F) 03/24/2018 9:29 AM CD T Respiratory Rate 20 03/24/2018 9:29 AM CDT Oxygen Saturation 96% 03/24/2018 9:29 AM CDT Inhaled Oxygen Concentration - - Weight 83.9 kg (185 lb) 03/24/2018 9:29 AM CDT Height - - Body Mass Index 33.3 01/01/2018 12:48 PM CDT documented in this encounter Nursing Notes * Sara Gunter - 03/24/2018 10:00 AM CDT Patient here for sandostatin. Injection given on R hip. Tolerated well. Assessment WNL. documented in this encounter Plan of [...] 30 mg 30 mg, intramuscular, Once, On 03/24/18 at 1000, For 1 dose, Refrigerate. For IM administration only. 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),Neuroendocrine carcinoma (HCC) Given 03/24/2018 10:01 AM CDT 30 mg Right Dorsogluteal/Butt ock documented in this encounter Orders Medications Ordered That Brett ht Not Have Been Administered Count Last Ordered Date First Ordered Date octreotide LAR (SandoSTATIN LAR) extended release intramuscular injection 30 mg 1 03/24/2018 Appointment Requests Count Last Ordered Date Fi rst Ordered Date ONCBCN INJECTION APPOINTMENT REQUEST 1 03/08 documented in this encounter Care Teams Director Digital Analytics Relationship Specialty Start Date End Date Julio César Briseno MD PCP - General 10/01/16 documented as of this encounter
--- OUTSIDE RECORDS SUMMARY | 2024-06-25 22:38 | XMS_ITS | Encounter Summary ---
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) Procedures [place] OCTREOTIDE INJECTION, DEPOT Octreotide 28 Day Cycles - Carcinoid Eren Cr MD [address] [facility] [address] [place] [address] Phone: tel: fax: [address] [phone] Phone: tel: fax: Referral ID Status Reason Start Date Expiration Date V isits Requested Visits Authorized [id number] Authorized 11/28/2017 02/05/2025 1 150 Encounter Details Date Type Department Care Team (Late st Contact Info) Description 06/16/2018 9:45 AM FLOORMAN Infusion [facility] Oncology [facility] Advanced Medicine 7th [place] [address] 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); Neuroendocrine carcinoma (CMS/HCC) Social History Tobacco Use Types Packs/Day Years Used Date Smoking Tobacco: Never Smokeless Tobacco: Never Alcohol Use Standard Drinks/Week Comments Yes 1 (1 standard drink = 0.6 oz pur e alcohol) Comments No Sex and Gender Information Value Date Recorded Sex Assigned at Not on file Legal Sex Female 2:41 PM FLOORMAN Gender Identity Not on file Sexual Orientation Straight 02/19/2021 9: 29 AM CDT Occupation Industry Job Start Date Job End Date retired Not on file Not on file Not on file documented as of this encounter Last Filed Vital Signs Vital Sign Reading Time Taken Comments Blood Pressure 163/80 06/16/2018 9:08 AM FLOORMAN Pulse 74 06/16/2018 9:08 AM FLOORMAN Temperature 18 ??C (64.4 ??F) 06/16/2018 9:08 AM FLOORMAN Respiratory Rate 18 06/16/2018 9:08 AM FLOORMAN Oxygen Saturation 97% 06/16/2018 9:08 AM FLOORMAN Inhaled Oxygen Concentration - - Weight 84.1 kg (185 lb 6.4 oz) 06/16/2018 9:08 A M FLOORMAN Height - - Body Mass Index 33.37 01/01/2018 12:48 PM CDT documented in this encounter Nursing Notes * Sudha Parra - 06/16/2018 9:45 AM CST Patient tolerated treatment well. She received her injection on her left side today. She left ambulatory RMAN documented in this encounter Plan of Treatment [...] 30 mg 30 mg, intramuscular, Once, On 06/16/18 at 0945, For 1 dose, Refrigerate. For IM administration only. 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),Neuroendocrine carcinoma (HCC) Given 06/16/2018 9:38 AM FLOORMAN 30 mg Left Dorsogluteal/Butt ock documented in this encounter Orders Medications Ordered That Brett ht Not Have Been Administered Count Last Ordered Date First Ordered Date octreotide LAR (SandoSTATIN LAR) extended release intramuscular injection 30 mg 1 06/16/2018 Appointment Requests Count Last Ordered Date Fi rst Ordered Date ONCBCN INJECTION APPOINTMENT REQUEST 1 06/07 documented in this encounter Care Teams Warp Yarn Sorter Relationship Specialty Start Date End Date Julio César Briseno MD PCP - General 10/01/16 documented as of this encounter
--- OUTSIDE RECORDS SUMMARY | 2024-06-25 22:38 | XMS_ITS | Encounter Summary ---
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) Procedures [place] OCTREOTIDE INJECTION, DEPOT Octreotide 28 Day Cycles - Carcinoid Eren Cr MD [address] [facility] [address] [place] [address] Phone: tel: fax: [address] [address] Phone: tel: fax: Referral ID Status Reason Start Date Expiration Date V isits Requested Visits Authorized [id number] Authorized 11/28/2017 02/05/2025 1 150 Encounter Details Date Type Department Care Team (Late st Contact Info) Description 08/11/2018 9:15 AM CAFE MANAGER Lab [facility] [address] [facility] 7th [place] [address] [place] [id number] Malignant neoplasm metastatic to liver (CMS/HCC); Neuroendocrine carcinoma (CMS/HCC) Social History Tobacco Use Types Packs/Day Years Used Date Smoking Tobacco: Never Smokeless Tobacco: Never Alcohol Use Standard Drinks/Week Comments Yes 1 (1 standard drink = 0.6 oz pur e alcohol) Comments No Sex and Gender Information Value Date Recorded Sex Assigned at Not on file Legal Sex Female 2:41 PM CAFE MANAGER Gender Identity Not on file Sexual Orientation Straight 02/19/2021 9: 29 AM CDT Occupation Industry Job Start Date Job End Date retired Not on file Not on file Not on file documented as of this encounter Plan of Treatment Not on file documented as of this encounter Procedures Procedure Name Priority Date/Time Associated Diagnosis Comments CHROMOGRANIN A Routine 08/11/2018 9:20 AM CAFE MANAGER Malignant neoplasm metastatic to liver (CMS/HCC) Neuroendocrine carcinoma (CMS/HCC) COMPREHENSIVE METABOLIC PANEL STAT 08/11/2018 9:20 AM CAFE MANAGER Malignant neoplasm metastatic to liver (CMS/HCC) Neuroendocrine carcinoma (CMS/HCC) DIFFERENTIAL AUTO STAT 08/11/2018 9:1 7 AM CAFE MANAGER Malignant neoplasm metastatic to liver (CMS/HCC) Neuroendocrine carcinoma (CMS/HCC) CBC WITH AUTO DIFFERENTIAL STAT 08/11/2018 9:17 AM CAFE MANAGER Malignant neoplasm metastatic to liver (CMS/HCC) Neuroendocrine carcinoma (CMS/HCC) documented in this encounter Results * (ABNORMAL) Chromogranin A (08/11/2018 9:20 AM CAFE MANAGER) Chromogranin A 132(H) <93 ng/mL [facility] [...] performance characteristics determined by [facility] in a manner consistent with [...] malignant disease. Test Performed by: [facility] [address] [place] [address] Blood specimen (specimen) 08/11/2018 9:20 AM CAFE MANAGER 08/11/2018 10:17 AM CAFE MANAGER Narrative [facility] - 08/12/2018 11:28 AM CAFE MANAGER us Eren Cr MD LAB BLOOD ORDERABLES Final Re sult [facility] Department [place] [address] * (ABNORMAL) Comprehensive metabolic panel (08/11/2018 9:20 AM CAFE MANAGER) Sodium 141 135 - 145 mmol/L [facility] Potassium, pl 4.6 3.3 - 4.9 mmol/L [facility] Chloride 105 97 - 110 mmol/L [facility] CO2 28 22 - 32 mmol/L [facility] Anion gap 8 2 - 15 mmol/L [facility] BUN 15 8 - 25 mg/dL [facility] Creatinine 0.87 0.60 - 1.10 mg/dL [facility] Glucose 131 70 - 199 mg/dL [facility] Comment: Interpretive Data Fasting glucose [...] 2017. Calcium 10.8(H) 8.5 - 10.3 mg/dL [facility] Bilirubin, total 0.6 0.1 - 1.2 mg/dL [facility] Protein, pl 6.7 6.5 - 8.5 g/dL [facility] Albumin 4.2 3.5 - 5.0 g/dL [facility] Alk phos 88 40 - 130 Units/L [facility] ALT 20 7 - 45 Units/L [facility] AST 22 10 - 45 Units/L [facility] Blood specimen (specimen) 08/11/2018 9:20 AM CAFE MANAGER 08/11/2018 9:31 AM CAFE MANAGER Narrative [facility] - 08/11/2018 10:52 AM CAFE MANAGER us Eren Cr MD LAB BLOOD ORDERABLES Final Re sult [facility] Department [place] [address] * Differential, auto (08/11/2018 9:17 AM CAFE MANAGER) Neutrophil abs 3.4 1.8 - 6.6 K/cumm [facility] Comment:Testing performed by : [facility], [address] [place] [phone] Lymphocyte abs 1.8 1.2 - 3.3 K/cumm [facility] Comment:Testing performed by : [facility], [address] [place] [phone] Monocyte abs 0.5 0.2 - 1.2 K/cumm [facility] Comment:Testing performed by : [facility], [address] [place] [phone] Eosinophil abs 0.1 0.0 - 0.5 K/cumm [facility] Comment:Testing performed by : [facility], [address] [place] [phone] Basophil abs 0.0 0.0 - 0.2 K/cumm [facility] Comment:Testing performed by : [facility], [address] [place] [phone] Neutrophil pct 58.4 % [facility] Comment: Interpretive Data Percent cell count reference ranges are not reported, since discordance with absolute values may lead to misinterpretation of CBC data. Current Interpretive Data was last revised on 2017. Testing performed by: [facility], [address] [place] [phone] Lymphocyte pct 30.6 % [facility] Comment: Interpretive Data Percent cell count reference ranges are not reported, since discordance with absolute values may lead to misinterpretation of CBC data. Current Interpretive Data was last revised on 2017. Testing performed by: [facility], [address] [place] [phone] Monocyte pct 9.1 % [facility] Comment:Testing performed by : [facility], [address] [place] [phone] Eosinophil pct 1.3 % [facility] Comment:Testing performed by : [facility], [address] [place] [phone] Basophil pct 0.6 % [facility] Comment:Testing performed by : [facility], [address] [place] [phone] Blood specimen (specimen) 08/11/2018 9:17 AM CAFE MANAGER 08/11/2018 9:19 AM CAFE MANAGER Narrative [facility] - 08/11/2018 9:23 AM CAFE MANAGER Eren Cr MD LAB BLOOD ORDERABLES Final Re sult [facility] Department of Laboratories [place], [place] [id number] * (ABNORMAL) CBC with auto differential (08/11/2018 9:17 AM CAFE MANAGER) WBC 5.8 3.8 - 9.8 K/cumm [facility] Comment:Testing performed by : [facility], [address] [place] [phone] Hgb 14.5 12.1 - 15.1 g/dL [facility] Comment:Testing performed by : [facility], [address] [place] [address] Hct 42.8 36.1 - 44.3 % [facility] Comment:Testing performed by : [facility], [address] [place] [address] Plt 137(L) 140 - 440 K/cumm [facility] Comment:Testing performed by : [facility], [address] [place] [address] MPV 7.7 6.8 - 10.4 fL [facility] Comment:Testing performed by : [place] [address] RBC 5.05(H) 3.90 - 5.00 M/cumm [facility] Comment:Testing performed by : [place] [address] MCV 84.8 80.0 - 97.6 fL [facility] Comment:Testing performed by : [facility], [address] [place] [address] MCH 28.8 26.7 - 33.7 pg [facility] Comment:Testing performed by : [place] [address] MCHC 33.9 32.7 - 35.5 g/dL [facility] Comment:Testing performed by : [place] [address] RDW CV 13.5 11.8 - 14.6 % [facility] Comment:Testing performed by : [facility], [address] [place] [address] NRBC abs 0.00 0.00 - 0.01 K/cumm [facility] Comment:Testing performed by : [place] [address] Blood specimen (specimen) 08/11/2018 9:17 AM CAFE MANAGER 08/11/2018 9:19 AM CAFE MANAGER Narrative [facility] - 08/11/2018 9:23 AM CAFE MANAGER us Eren Cr MD LAB BLOOD ORDERABLES Final Re sult [facility] Department [place] [address] documented in this encounter Visit Diagnoses Diagnosis Malignant neoplasm metastatic to liver (HCC) Neuroendocrine carcinoma (HCC) Other malignant neoplasm of unspecified site documented in this encounter Orders Appointment Requests Count Last Ordered Date Fi rst Ordered Date ONCBCN LAB APPOINTMENT 1 08/11/2018 documented in this encounter Care Teams Gun Fertilizer Relationship Specialty Start Date End Date Julio César Briseno MD PCP - General 10/01/16 documented as of this encounter
--- OUTSIDE RECORDS SUMMARY | 2024-06-25 22:38 | XMS_ITS | Encounter Summary ---
Author Organization [facility] Address [address] [place] [address] Care Team Providers Care Patient Financial Services Specialist Name Role Phone Julio César Briseno MD Primary Care Provider Encounter Details Date Type Department Care Team (Late st Contact Info) Description 01/27/2018 10:11 AM CDT - 01/27/2018 11:59 PM CDT Hospital Encounter [facility] ([facility]) [address] [place] [id number] Bailee Alcazar MD [address] [address] Encounter for screening mammogram for malignant neoplasm [...] on file Legal Sex Female 2:41 PM BOOM BOSS Gender Identity Not on file Sexual Orientation [...] capsuleIndicatio ns:supplement 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 9 coenzyme [id number] E 100-5 mg-unit capsuleIndicatio ns:supplement Take 1 tablet by mouth historiography professor before breakfast [address] (CYMBALTA) 30 [...] SENG Schedule Routine, Read Routine (OP Routine) 01/27/2018 10:58 AM CDT Encounter for screening mammogram for malignant neoplasm of breast documented in this encounter Results * Screening Mammogram Bilateral W Seng (01/27/2018 10:58 AM CDT) Anatomical Region Laterality Modality Breast Bilateral Mammography Narrative 01/29/2018 12:51 PM CDT Mammogram Technique: Bilateral Digital Breast Tomosynthesis, Bilateral C-view 2D Screening mammogram. ??Views obtained: ??bilateral craniocaudal and bilateral mediolateral oblique. ??Computer Aided Detection was performed. Mammogram Findings: The present examination has been compared to prior imaging studies performed at [facility] on 06/28/2014, 06/29/2015 and 10/08/2016. There are scattered areas of fibroglandular density. There is no suspicious abnormality in either breast. Impression: Annual screening mammography is recommended. OVERALL FINAL ASSESSMENT: BI-RADS CATEGORY 1: ??Negative. Procedure Note Karma Cash MD - 01/29/2018 Mammogram Technique: Bilateral Digital Breast Tomosynthesis, Bilateral C-view 2D Screening mammogram. Views obtained: bilateral craniocaudal and bilateral mediolateral oblique. Computer Aided Detection was performed. Mammogram Findings: The present examination has been compared to prior imaging studies performed at [facility] on 06/28/2014, 06/29/2015 and 10/08/2016. There are scattered areas of fibroglandular density. There is no suspicious abnormality in either breast. Impression: Annual screening mammography is recommended. OVERALL FINAL ASSESSMENT: BI-RADS CATEGORY 1: Negative. Bailee Alcazar MD IMG MAMMO PROCEDURES Fin al Result documented in this encounter Visit Diagnoses Diagnosis Encounter for screening mammogram for malignant neoplasm of breast documented in this encounter Care Teams Patient Financial Services Specialist Relationship Specialty Start Date End Date Julio César Briseno MD PCP - General 10/01/16 documented as of this encounter
--- OUTSIDE RECORDS SUMMARY | 2024-06-25 22:38 | XMS_ITS | Encounter Summary ---
Author Organization [facility] Address [address] [place] [address] Phone Care Team Providers Care Report Analyst Name Role Phone Julio César Briseno MD Primary Care Provider [phone] Reason for Referral * Diagnostic Lab (Routine) - Closed Specialty Diagnoses / Procedures Referred By Evelyne bowman Referred To Contact Lab Diagnoses Carcinoid tumor Procedures Cytology Oksana Rivas NP Phone: tel: fax: Referral ID Status Reason Start Date Expiration Date Visits Re quested Visits Authorized [id number] Closed 06/18/2018 12/28/2019 1 1 INUITY DIRECTOR Encounter Details Date Type Department Care Team (Late st Contact Info) Description 06/18/2018 2:00 PM CONTINUITY DIRECTOR Office Visit [facility] [address] [facility] 13th [place] [address] [place] [id number] Oksana Rivas NP [phone] [address] Carcinoid tumor (Primary Dx); Neuroendocrine carcinoma (CMS/HCC); 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/HCC) Social History Tobacco Use Types Packs/Day Years Used Date Smoking Tobacco: Never Smokeless Tobacco: Never Alcohol Use Standard Drinks/Week Comments Yes 1 (1 standard drink = 0.6 oz pur e alcohol) Comments No Sex and Gender Information Value Date Recorded Sex Assigned at Not on file Legal Sex Female 2:41 PM CONTINUITY DIRECTOR Gender Identity Not on file Sexual Orientation Straight 02/19/2021 9: 29 AM CDT Occupation Industry Job Start Date Job End Date retired Not on file Not on file Not on file documented as of this encounter Last Filed Vital Signs Vital Sign Reading Time Taken Comments Blood Pressure 151/84 06/18/2018 1:58 PM CONTINUITY DIRECTOR Pulse 98 06/18/2018 1:58 PM CONTINUITY DIRECTOR Temperature 36.9 ??C (98.5 ??F) 06/18/2018 1:58 PM CS T Respiratory Rate - - Oxygen Saturation 93% 06/18/2018 1:58 PM CONTINUITY DIRECTOR Inhaled Oxygen Concentration - - Weight 82.6 kg (182 lb 3.2 oz) 06/18/2018 1:58 P M CONTINUITY DIRECTOR Height - - Body Mass Index 32.79 01/01/2018 12:48 PM CDT documented in this encounter Progress Notes * Oksana Rivas, LIFTER - 06/18/2018 2:00 PM CST Gynecological Oncology Follow-up Surveillance Patient: La Chung : 1950 Date of Exam: 06/18/2018 ?? HPI: ?Ms. La Chung is a 67-year-old, woman who had a mass in the ??right colon which was symptomatic. She had some discomfort. We removed the mass. 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 She has seen Dr. Dm Cr for this and has been treated with Octreotide LAR and has what??looks like stable disease. ??She is here now just for routine gynecologic care and overall is doing well. She is doing very well today. Her who has been diagosed with stomach cancer is presently without evidence of disease. She has minimal symptoms to report today. She is seeing a urogynacologistIn her local town for urinary incontinence as has been started on [place]. She also is noting someimprovement in her bowel habits, not as much diarrhea of late. She continues to follow up with Dr Cr for her treatments and has stable disease. ?? Visit Diagnosis: 1. Carcinoid tumor 2. Neuroendocrine carcinoma (CMS/HCC) 3. 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) Review of Systems: Systemic: Pain: None, Fatigue: None Head: Headaches: None Eyes: Change in vision: None Otolaryngeal: Change in hearing: None Cardiovascular: Chest pain: None, Palpitation: None Pulmonary: Shortness of breath: None, Cough: None Gastrointestinal: Nausea: None, Vomiting: None, Abdominal bloating: None, Abdominal pain: None, Blood in bowel movements: None, Diarrhea: Mild, Constipation: None Genitourinary: Blood in urine: None, Lost control of urine: Moderate, Pain with urination: None, Vaginal bleeding: None Endocrine: Hot flashes: None, Hair loss: Mild Hematologic: Easy bruising/bleeding: None Neurological: Tingling of hands or feet: None, Numbness: None Psychological: Depression: None, Mood changes: None Skin: Skin rash: None Distress Score: 3 Past History: Patient Active Problem List Diagnosis Date Noted ??? Carcinoid tumor 06/18/2018 ??? 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 Neuroendocrine carcinoma (CMS/HCC) 10/24/2015 Past Medical History: Diagnosis Date ??? Cancer (CMS/HCC) ??? Hypercholesteremia ??? Hypertension ??? Personal history of other diseases of the digestive system History of hemorrhoids - (Added by TW Conv) Past Surgical History: Procedure Laterality Date ??? GALLBLADDER SURGERY Gallbladder Surgery - (Added by TW Conv) ? ? NH REMOVAL OF TONSILS,<12 Y/O Tonsillectomy - (Added by TW Conv) ??? NH TOTAL ABDOM HYSTERECTOMY Hysterectomy - (Added by TW Conv) Allergies Allergen Reactions ??? Vytorin 10-10 [Ezetimibe-Simvastatin] Muscle pain and Unknown Muscle weakness ??? Altace [Ramipril] Cough Social History Substance Use Topics ??? Smoking status: Never Smoker ??? Smokeless tobacco: Never Used ??? Alcohol use 0.6 oz/week 1 Shots of liquor per week Family History Problem Relation Age of Onset ??? Breast cancer Sister Adenocarcinoma of breast - (Added by TW Conv) ??? Suicidality Father Family history of suicide - (Added by TW Conv) ??? Other (old age) Mother Current Medications: Current Outpatient Prescriptions Medication Sig Dispense Refill ??? ascorbic acid, vitamin C, 500 mg capsule Take 1 tablet by mouth. ??? cholecalciferol (VITAMIN D3) 2,000 unit capsule Take by mouth. ??? coenzyme [id number] E (CO Q-10, WITH VIT E,) 100-5 mg-unit capsule ??? DULoxetine DR (CYMBALTA) 30 mg capsule daily. ??? olmesartan-hydrochlorothiazide (BENICAR HCT) 40-25 mg per tablet Take 1 tablet by mouth daily. 3 ??? PROCTOSOL HC 2.5 % rectal cream APPLY RECTALLY THREE TIMES A DAY 0 ??? simvastatin (ZOCOR) 20 mg tablet ??? trospium (SANCTURA) 20 mg tablet Take 20 mg by mouth. ??? wheat dextrin (BENEFIBER CLEAR SF, DEXTRIN, ORAL) No current facility-administered medications for this visit. ?? Oncology History ?TREATMENT HISTORY: ??1.?CT abdomen and pelvis in July showed a calcified enhancing mass centered in the terminal ileum with possible involvement of the proximal appendix and adjacent desmoplastic, raising suspicion for primary tumor such as carcinoid or possibly adenocarcinoma. ??It also showed bilateral ovarian enhancing solid masses suspicious for metastatic disease from above-mentioned gastrointestinal masses (Krukenberg tumors) and less likely primary bilateral ovarian neoplasms. ??The CT was also significant for tiny nodules in the omentum which could represent tumor deposits. ?2.?Colonoscopy in July at outside hospital showed hemorrhoids, ileitis, and diverticulosis. ?3.?On 10/03/2015, exploratory laparotomy, bilateral salpingo- oophorectomy, partial omentectomy, and peritoneal biopsies by Dr. Jasbir Reeves. ??At the same time, she also underwent right colectomy in the same OR by Dr. Greyson Reeves. 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 ??4.?Abdominal and pelvic MR from 11/04/2015: Hepatic segment [...] recommended by Radiology. Chest CT from 11/04/2015: ??No evidence of metastatic disease in the chest.Octreotide scan from 11/04/2015: ??No evidence for somatostatin receptor positive tumor. ??5.?Started on octreotide monthly injections on 11/07/2015, 30 mg IM. Scans done 10/21/2017 showed minimal increase in her lesions. 6. CT 04/21/2018: Stable pulmonary nodules, hepatic lesions, perihepatic implants, and peritoneal deposits with unchanged retroperitoneal, right supraclavicular, and mediastinal lymphadenopathy consistent with stable metastatic disease. ? Neuroendocrine carcinoma (CMS/HCC) ?? 10/03/2015 Initial Diagnosis ? Neuroendocrine carcinoma (CMS/HCC) ? 04/21/2018 CT IMPRESSION: Stable pulmonary nodules, hepatic lesions, perihepatic implants, and peritoneal deposits with unchanged retroperitoneal, right supraclavicular, and mediastinal lymphadenopathy consistent with stable metastatic disease. ?? Recent Tumor Markers: Lab Results Component Value Date CA125 11.8 10/03/2015 Preventive screening: Health Maintenance Topic Date Due ??? Fall Risk Assessment 1950 ??? Depression Screening-PHQ 1950 ??? Regular Well Visit/Exam 1950 ??? Osteoporosis Screening-Bone Density Scan 1950 ??? Colon Cancer Screening-Colonoscopy 1950 ??? Hepatitis C Screening 1950 ??? DTaP/Tdap/Td Vaccine (1 - Tdap) 11/06/1959 ??? Zoster Vaccines 2008 ? ? Pneumococcal (PCV13 & PPSV23) 65+ yrs (1 of 2 - PCV13) 2013 ??? Breast Cancer Screening-Mammogram 01/27/2019 ??? Influenza Vaccine Completed Bone Density Scan: Normal; Physical exam: BP 151/84 (BP Location: Right arm, Patient Position: Sitting) Pulse 98 Temp 36.9 ??C (98.5 ??F)(Oral) Wt 82.6 kg (182 lb 3.2 oz) SpO2 93% BMI 32.79 kg/m?? Constitutional: She is oriented to person, [...] Genitourinary: Vagina normal. No vaginal discharge found. Pap has been taken Musculoskeletal: Normal range of motion. She exhibits no edema or tenderness. Lymphadenopathy: She has no cervical adenopathy. Neurological: She is alert and oriented to person, place, and time. No sensory deficit. Skin: Skin is warm and dry. No rash noted. Psychiatric: She has a normal mood and affect. Labs: Lab Results Component Value Date WBC 4.7 06/16/2018 HGB 14.0 06/16/2018 HCT 41.2 06/16/2018 NEUTROABS 2.7 06/16/2018 LABPLAT 135 (L) 06/16/2018 CALCIUM 10.5 (H) 06/16/2018 CO2 30 06/16/2018 ALBUMIN 4.2 06/16/2018 PROT 6.8 06/16/2018 ANIONGAP 6 06/16/2018 ALT 20 06/16/2018 AST 23 06/16/2018 MAGNESIUM 1.9 10/05/2015 SODIUM 142 06/16/2018 POTASSIUM 4.4 06/16/2018 CHLORIDE 106 06/16/2018 CREATININE 0.85 06/16/2018 BUNSER 13 06/16/2018 GLUCOSE 89 06/16/2018 BILITOT 0.6 06/16/2018 CA125 11.8 10/03/2015 Assessment/Plan: 1. We will [...] mineral density this year in our [facility]. ?? Oksana Rivas NP 06/18/2018 2:07 PM CC: PCP: Julio César Briseno MD Enclosures:Note Cosigned by Jasbir Reeves MD at 06/19/2018 2:45 AM CONTINUITY DIRECTOR INUITY DIRECTOR INUITY DIRECTOR documented in this encounter Plan of Treatment Not on file documented as of this encounter Results * Cytology (06/18/2018 3:12 PM CONTINUITY DIRECTOR) Fluid 06/18/2018 3:12 PM CONTINUITY DIRECTOR 06/18/2018 5:42 PM CONTINUITY DIRECTOR Narrative PATHOLOGY [facility] - 07/04/2018 10:29 AM CONTINUITY DIRECTOR EPIC results best viewed via link to PDF [facility] [place], [place] [id number] CYTOPATHOLOGY REPORT FINAL Patient Name: ??LA CHUNG Gender: ??F : ??1950 (Age: 67) Address: ??[address] [place] [address] , [place], [place] ??[address] Hospital #: ??[id number] Service: ??TACK WELDER Location: ??[facility] Patient Type: ??[facility] Ref Lab Taken: ??06/18/2018 Received: ??06/18/2018 Accessioned: ??06/19/2018 Reported: ??07/04/2018 Physician(s): ??SAGAR Jimenez ?? FINAL INTERPRETATION SOURCE OF SPECIMEN: ? Liquid based pap test, ThinPrep STATEMENT OF ADEQUACY: ?- Satisfactory for evaluation, vaginal smear GENERAL CATEGORY: ?- Negative for squamous intraepithelial lesion or malignancy DESCRIPTION: ?- Atrophy - Acute inflammation Comments HPV Result: ??NEGATIVE for high risk types of Human Papilloma Virus (HPV) RNA This probe detects the presence of HPV types: 16, 18, 31, 33, 35, 39, 45, 51, 52, 56, 58, 59, 66 and 68. ??This HPV test was performed at [facility] in [place], [place] utilizing the Gen-Probe Aptima assay. This specimen has been rescreened in accordance with this laboratory's Lead Systems Architect Program. mg/07/04/2018 10:29 JAMES Thomas(ASCP) Report Electronically Reviewed and Signed Out By JAMES Hernandez(ASCP) 07/04/2018 10:29:50 Cervicovaginal Cytology (Pap Test) Disclaimer: The Pap test is a screening test used to detect cervical cancer and its precursors; it is not a diagnostic procedure. False negative and false positive results do occur. Pap test results should be interpreted in the context of pertinent clinical information and biopsy results as indicated. Gross Description A. ??Liquid based pap test, ThinPrep: ? Vaginal - diagnostic ThinPrep with HPV ?? Clinical Diagnosis and History Last Menstrual Period: unknown The patient is a 67 year old woman with carcinoid tumor. The HPV test was performed by [facility], [address] [place] [address]. Report Images and scanned documents, if included only viewable in PDF version The performance characteristics of some immunohistochemical stains, in-situ hybridization and fluorescence in-situ hybridization tests and immunophenotyping by flow cytometry cited in this report (if any) were determined by the Surgical Pathology Department at [facility] as part of an ongoing quality control operator program and in compliance with federally mandated [...] performance characteristics determined by the Surgical Pathology Department of [facility]. ??It has not been cleared or approved by the [place]. S. Food and Drug Administration. Oksana Rivas NP LAB CYTOLOGY ORDERABLES Final R esult PATHOLOGY [facility] 3rd Floor [place], [place] [phone] documented in this encounter Visit Diagnoses Diagnosis Carcinoid tumor- Primary Benign carcinoid tumor of unknown primary site Neuroendocrine carcinoma (HCC) Other malignant neoplasm of unspecified site Malignant neoplasm metastatic to liver (HCC) Carcinoid tumor Benign carcinoid tumor of unknown primary site documented in this encounter Discontinued Medications Medication Sig Discontinue Reason Start Date End Da te fesoterodine ER (TOVIAZ) 4 mg tablet extended release 24 hr Take 4 mg by mouth. Therapy completed 11/28/2017 06/18/2018 valsartan-hydroCHLOROthia zide (DIOVAN-HCT) 160-12.5 mg per tabletIndications:hyperte nsion daily. Therapy completed 06/18/2018 documented as of this encounter Historical Medications * This list may reflect changes made after this encounter. trospium (SANCTURA) 20 mg tablet Take 20 mg by mouth. 06/15/2018 04/12/2019 added in this encounter Care Teams Report Analyst Relationship Specialty Start Date End Date Julio César Briseno MD PCP - General 10/01/16 documented as of this encounter
--- OUTSIDE RECORDS SUMMARY | 2024-06-25 22:38 | XMS_ITS | Encounter Summary ---
Author Organization [facility] Address [address] [place] [address] Phone Care Team Providers Care Install Technician Name Role Phone Julio César Briseno MD Primary Care Provider [phone] 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) Procedures AR OCTREOTIDE INJECTION, DEPOT Octreotide 28 Day Cycles - Carcinoid Eren Cr MD [address] [facility] [address] [place] [address] Phone: tel: fax: [address] [address] Phone: tel: fax: Referral ID Status Reason Start Date Expiration Date V isits Requested Visits Authorized [id number] Authorized 11/28/2017 02/05/2025 1 150 Encounter Details Date Type Department Care Team (Late st Contact Info) Description 01/27/2018 10:00 AM CDT Infusion [facility] Oncology [facility] 7th [place] [address] 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); Neuroendocrine carcinoma (CMS/HCC) Social History Tobacco Use Types Packs/Day Years Used Date Smoking Tobacco: Never Smokeless Tobacco: Never Alcohol Use Standard Drinks/Week Comments Yes 1 (1 standard drink = 0.6 oz pur e alcohol) Comments No Sex and Gender Information Value Date Recorded Sex Assigned at Not on file Legal Sex Female 2:41 PM CONSULTING APPLICATION ENGINEER Gender Identity Not on file Sexual Orientation Straight 02/19/2021 9: 29 AM CDT Occupation Industry Job Start Date Job End Date retired Not on file Not on file Not on file documented as of this encounter Last Filed Vital Signs Vital Sign Reading Time Taken Comments Blood Pressure 152/77 01/27/2018 9:39 AM CDT Pulse 77 01/27/2018 9:39 AM CDT Temperature 36.8 ??C (98.2 ??F) 01/27/2018 9:39 AM CD T Respiratory Rate 20 01/27/2018 9:39 AM CDT Oxygen Saturation 93% 01/27/2018 9:39 AM CDT Inhaled Oxygen Concentration - - Weight 84 kg (185 lb 1.2 oz) 01/27/2018 9:39 AM CDT Height - - Body Mass Index 33.31 01/01/2018 12:48 PM CDT documented in this encounter Nursing Notes * Madie Granger - 01/27/2018 10:00 AM CDT Pt tolerated injection well. Discharged per ambulatory. documented in this encounter Plan [...] 30 mg 30 mg, intramuscular, Once, On 01/27/18 at 1000, For 1 dose, Refrigerate. For IM administration only. 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),Neuroendocrine carcinoma (HCC) Given 01/27/2018 9:44 AM CDT 30 mg Right Dorsogluteal/Butt ock documented in this encounter Orders Medications Ordered That Brett ht Not Have Been Administered Count Last Ordered Date First Ordered Date octreotide LAR (SandoSTATIN LAR) extended release intramuscular injection 30 mg 1 01/27/2018 Appointment Requests Count Last Ordered Date Fi rst Ordered Date ONCBCN INJECTION APPOINTMENT REQUEST 1 01/06 documented in this encounter Care Teams Install Technician Relationship Specialty Start Date End Date Julio César Briseno MD PCP - General 10/01/16 documented as of this encounter
--- OUTSIDE RECORDS SUMMARY | 2024-06-25 22:38 | XMS_ITS | Encounter Summary ---
Author Organization [facility] Address [address] [place] [address] Phone Care Team Providers Care Administration Vice President Name Role Phone Julio César Briseno MD Primary Care Provider [phone] 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) Procedures [place] OCTREOTIDE INJECTION, DEPOT Octreotide 28 Day Cycles - Carcinoid Eren Cr MD [address] [facility] [address] [place] [address] Phone: tel: fax: [address] [address] Phone: tel: fax: Referral ID Status Reason Start Date Expiration Date V isits Requested Visits Authorized [id number] Authorized 11/28/2017 02/05/2025 1 150 Encounter Details Date Type Department Care Team (Late st Contact Info) Description 01/27/2018 9:15 AM CDT Lab [facility] [address] [facility] 7th [place] [address] [place] [id number] Malignant neoplasm metastatic to liver (CMS/HCC); Neuroendocrine carcinoma (CMS/HCC) Social History Tobacco Use Types Packs/Day Years Used Date Smoking Tobacco: Never Smokeless Tobacco: Never Alcohol Use Standard Drinks/Week Comments Yes 1 (1 standard drink = 0.6 oz pur e alcohol) Comments No Sex and Gender Information Value Date Recorded Sex Assigned at Not on file 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 Gender Identity Not on file Sexual Orientation Straight 02/19/2021 9: 29 AM CDT Occupation Industry Job Start Date Job End Date retired Not on file Not on file Not on file documented as of this encounter Plan of Treatment Not on file documented as of this encounter Procedures Procedure Name Priority Date/Time Associated Diagnosis Comments DIFFERENTIAL AUTO STAT 01/27/2018 9:1 8 AM CDT Malignant neoplasm metastatic to liver (CMS/HCC) Neuroendocrine carcinoma (CMS/HCC) CBC WITH AUTO DIFFERENTIAL STAT 01/27/2018 9:18 AM CDT Malignant neoplasm metastatic to liver (CMS/HCC) Neuroendocrine carcinoma (CMS/HCC) CHROMOGRANIN A Routine 01/27/2018 9:14 AM CDT Malignant neoplasm metastatic to liver (CMS/HCC) Neuroendocrine carcinoma (CMS/HCC) COMPREHENSIVE METABOLIC PANEL STAT 01/27/2018 9:14 AM CDT Malignant neoplasm metastatic to liver (CMS/HCC) Neuroendocrine carcinoma (CMS/HCC) documented in this encounter Results * Differential, auto (01/27/2018 9:18 AM CDT) Neutrophil abs 3.1 1.8 - 6.6 K/cumm [facility] Comment:Testing performed by : [facility], [address] [place] [phone] Lymphocyte abs 1.9 1.2 - 3.3 K/cumm [facility] Comment:Testing performed by : [facility], [address] [place] [phone] Monocyte abs 0.4 0.2 - 1.2 K/cumm [facility] Comment:Testing performed by : [facility], [address] [place] [phone] Eosinophil abs 0.1 0.0 - 0.5 K/cumm [facility] Comment:Testing performed by : [facility], [address] [place] [phone] Basophil abs 0.0 0.0 - 0.2 K/cumm [facility] Comment:Testing performed by : [facility], [address] [place] [phone] Neutrophil pct 55.8 % [facility] Comment: Interpretive Data Percent cell count reference ranges are not reported, since discordance with absolute values may lead to misinterpretation of CBC data. Current Interpretive Data was last revised on 2017. Testing performed by: [facility], [address] [place] [phone] Lymphocyte pct 34.2 % [facility] Comment: Interpretive Data Percent cell count reference ranges are not reported, since discordance with absolute values may lead to misinterpretation of CBC data. Current Interpretive Data was last revised on 2017. Testing performed by: [facility], [address] [place] [phone] Monocyte pct 7.6 % [facility] Comment:Testing performed by : [facility], [address] [place] [phone] Eosinophil pct 1.8 % [facility] Comment:Testing performed by : [facility], [address] [place] [phone] Basophil pct 0.6 % [facility] Comment:Testing performed by : [facility], [address] [place] [phone] Blood specimen (specimen) 01/27/2018 9:18 AM CDT 01/27/2018 9:20 AM CDT Narrative [facility] - 01/27/2018 9:25 AM CDT us Eren Cr MD LAB BLOOD ORDERABLES Final Re sult [facility] Department [place] [address] * CBC with auto differential (01/27/2018 9:18 AM CDT) WBC 5.6 3.8 - 9.8 K/cumm [facility] Comment:Testing performed by : [facility], [address] [place] [address] Hgb 13.6 12.1 - 15.1 g/dL [facility] Comment:Testing performed by : [facility], [address] [place] [address] Hct 40.2 36.1 - 44.3 % [facility] Comment:Testing performed by : [facility], [address] [place] [address] Plt 143 140 - 440 K/cumm [facility] Comment:Testing performed by : [place] [address] MPV 7.7 6.8 - 10.4 fL [facility] Comment:Testing performed by : [place] [address] RBC 4.71 3.90 - 5.00 M/cumm [facility] Comment:Testing performed by : [facility], [address] [place] [address] MCV 85.4 80.0 - 97.6 fL [facility] Comment:Testing performed by : [place] [address] MCH 28.8 26.7 - 33.7 pg [facility] Comment:Testing performed by : [place] [address] MCHC 33.7 32.7 - 35.5 g/dL [facility] Comment:Testing performed by : [facility], [address] [place] [address] RDW CV 13.9 11.8 - 14.6 % [facility] Comment:Testing performed by : [place] [address] NRBC abs 0.00 0.00 - 0.01 K/cumm [facility] Comment:Testing performed by : [facility], [address] [place] [address] Blood specimen (specimen) 01/27/2018 9:18 AM CDT 01/27/2018 9:20 AM CDT Narrative [facility] - 01/27/2018 9:25 AM CDT Eren Cr MD LAB BLOOD ORDERABLES Final Re sult Performing Organization Address [facility] Co de Phone Number [facility] Department [place] [address] * Chromogranin A (01/27/2018 9:14 AM CDT) Chromogranin A 81 <93 ng/mL [facility] Comment: A reagent change was implemented [...] and its performance characteristics determined by [facility] in a manner consistent with CLIA [...] absence of malignant disease. Test Performed by: [address] [address] Blood specimen (specimen) 01/27/2018 9:14 AM CDT 01/27/2018 3:21 PM CDT Narrative [facility] - 01/28/2018 1:59 PM CDT Eren Cr MD LAB BLOOD ORDERABLES Final Re sult Performing Organization Address [facility] Co de Phone Number [facility] Department [place] [address] * (ABNORMAL) Comprehensive metabolic panel (01/27/2018 9:14 AM CDT) Sodium 142 135 - 145 mmol/L [facility] Potassium, pl 4.6 3.3 - 4.9 mmol/L [facility] Chloride 106 97 - 110 mmol/L [facility] CO2 30 22 - 32 mmol/L [facility] Anion gap 6 2 - 15 mmol/L [facility] BUN 15 8 - 25 mg/dL [facility] Creatinine 0.87 0.60 - 1.10 mg/dL [facility] Glucose 133 70 - 199 mg/dL [facility] [...] 2017. Calcium 10.4(H) 8.5 - 10.3 mg/dL [facility] Bilirubin, total 0.6 0.1 - 1.2 mg/dL [facility] Protein, pl 6.9 6.5 - 8.5 g/dL [facility] Albumin 4.0 3.5 - 5.0 g/dL [facility] Alk phos 89 40 - 130 Units/L [facility] ALT 16 7 - 45 Units/L [facility] AST 23 10 - 45 Units/L [facility] Blood specimen (specimen) 01/27/2018 9:14 AM CDT 01/27/2018 9:33 AM CDT Narrative [facility] - 01/27/2018 10:24 AM CDT us Eren Cr MD LAB BLOOD ORDERABLES Final Re sult [facility] Department [place] [address] documented in this encounter Visit Diagnoses Diagnosis Malignant neoplasm metastatic to liver (HCC) Neuroendocrine carcinoma (HCC) Other malignant neoplasm of unspecified site documented in this encounter Orders Appointment Requests Count Last Ordered Date Fi rst Ordered Date ONCBCN LAB APPOINTMENT 1 01/27/2018 documented in this encounter Care Teams Administration Vice President Relationship Specialty Start Date End Date Julio César Briseno MD PCP - General 10/01/16 documented as of this encounter
--- OUTSIDE RECORDS SUMMARY | 2024-06-25 22:38 | XMS_ITS | Encounter Summary ---
Author Organization [facility] Address [address] [place] [address] Phone Care Team Providers Care Professor Of Business Administration Name Role Phone Julio César Briseno MD Primary Care Provider Reason for Visit * Reason Comments Follow-up Encounter Details Date Type Department Care Team (Late st Contact Info) Description 01/01/2018 1:00 PM CDT Office Visit [facility] Obstetrics and Gynecology [address] [facility] 13th [place] [address] [place] [phone] Oksana Rivas, PLASTIC WELDER [address] [address] Carcinoid tumor (Primary Dx); Neuroendocrine [...] file 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 Gender Identity Not on file Sexual Orientation Straight 02/19/2021 9: 29 AM CDT Occupation Industry Job Start Date Job End Date retired Not on file Not on file Not on file documented as of this encounter Last Filed Vital Signs Vital Sign Reading Time Taken Comments Blood Pressure 139/80 01/01/2018 12:48 PM CDT Pulse 98 01/01/2018 12:48 PM CDT Temperature 37.2 ??C (99 ??F) 01/01/2018 12:48 PM CDT Respiratory Rate 20 01/01/2018 12:48 PM CDT Oxygen Saturation 96% 01/01/2018 12:48 PM CDT Inhaled Oxygen Concentration - - Weight 82.1 kg (181 lb) 01/01/2018 12:48 PM CDT Height 158.8 cm (5' 2.5 ) 01/01/2018 12:48 PM CD T Body Mass Index 32.58 01/01/2018 12:48 PM CDT documented in this encounter Patient Instructions * Patient Instructions* Oksana Rivas NP - 01/01/2018 1:00 PM CDT CA 125 ordered to be done with other labs. Follow up in 6 months documented in this encounter Progress Notes * Oksana Rivas NP - 01/01/2018 1:00 PM CDT Gynecological Oncology Follow-up Surveillance Patient: La Chung : 1950 Date of Exam: 01/01/2018 HPI: Ms. La Chung is a 67-year-old, woman who had a mass in the right colon which was symptomatic. She had some discomfort. We removed the mass. 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 She has seen Dr. Dm Cr for this and has been treated with Octreotide and has what looks like stable disease. She is here now just for routine gynecologic care and overall is doing well. She has minimal symptoms to report today. A minor cough, moderate mixed incontinence greatly improve with Toviaz RX. Some minor hot flashes and hair loss. Her has been recently diagnosed withcancer which has caused stress but he is handling it well. Overall she is doing very well. Visit Diagnosis: 1. Carcinoid tumor 2. Neuroendocrine carcinoma (CMS/HCC) 3. Malignant neoplasm metastatic to liver (CMS/HCC) Review of Systems: Systemic: Pain: None, Fatigue: None Head: Headaches: None Eyes: Change in vision: None Otolaryngeal: Change in hearing: None Cardiovascular: Chest pain: None, Palpitation: None Pulmonary: Shortness of breath: None, Cough: Mild Gastrointestinal: Nausea: None, Vomiting: None, Abdominal bloating: None, Abdominal pain: None, Blood in bowel movements: None, Diarrhea: None, Constipation: None Genitourinary: Blood in urine: None, Lost control of urine: Mild, Pain with urination: None, Vaginal bleeding: None Endocrine: Hot flashes: Mild, Hair loss: Mild Hematologic: Easy bruising/bleeding: None Neurological: Tingling of hands or feet: None, Numbness: None Psychological: Depression: None, Mood changes: None Skin: Skin rash: None Distress Score: 5 Past History: Patient Active Problem List Diagnosis Date Noted ??? 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 Neuroendocrine carcinoma (CMS/HCC) 10/24/2015 Past Medical History: Diagnosis Date ??? Cancer (CMS/HCC) ??? Hypercholesteremia ??? Hypertension ??? Personal history of other diseases of the digestive system History of hemorrhoids - (Added by TW Conv) Past Surgical History: Procedure Laterality Date ??? GALLBLADDER SURGERY Gallbladder Surgery - (Added by TW Conv) ? ? IA REMOVAL OF TONSILS,<12 Y/O [...] unit capsule Take by mouth. ??? coenzyme A62-zdefnon E (CO Q-10, WITH VIT E,) 100-5 mg-unit capsule ??? DULoxetine DR (CYMBALTA) 30 mg capsule daily. ??? fesoterodine ER (TOVIAZ) 4 mg tablet extended release 24 hr Take 4 mg by mouth. ??? PROCTOSOL HC 2.5 % rectal cream APPLY RECTALLY THREE TIMES A DAY 0 ??? simvastatin (ZOCOR) 20 mg tablet ??? valsartan-hydroCHLOROthiazide (DIOVAN-HCT) 160-12.5 mg per tablet daily. ??? wheat dextrin (BENEFIBER CLEAR SF, DEXTRIN, ORAL) No current facility-administered medications for this visit. Oncology History: Last Imagin10/21/17 Recent Tumor Markers: Lab Results Component Value Date CA125 11.8 10/03/2015 Preventive screening: Last mammogram: Normal; and Date: 11/28/17 Last pap: Normal; and Date: 05/2016 Colonsocopy: unknown date she will follow up. Bone Density Scan: Normal; Physical exam: BP 139/80 (BP Location: Right arm, Patient Position: Sitting) Pulse 98 Temp 37.2 ??C (99 ??F) Resp 20 Ht 158.8 cm (5' 2.5 ) Wt 82.1 kg (181 lb) SpO2 96% BMI 32.58 kg/m?? Constitutional: She is oriented to person, place, and time. She appears well- developed and well-nourished. HENT: Atraumatic, normocephalic, PERRLA, EOMI, EENT: within normal limits. Neck is supple, without thyromegaly or JVD. Head: Normocephalic. Eyes: EOM are normal. Neck: Normal range of motion. Neck supple. No thyromegaly present. Breast exam: No masses, no nipple discharge, axilla free Cardiovascular: Normal rate, regular rhythm and intact distal pulses. Pulmonary/Chest: Effort normal and breath sounds normal. Abdominal: Soft. Bowel sounds are normal. She [...] Labs: Lab Results Component Value Date WBC 6.2 12/30/2017 HGB 13.6 12/30/2017 HCT 40.3 12/30/2017 NEUTROABS 3.9 12/30/2017 LABPLAT 152 12/30/2017 CALCIUM 10.1 12/30/2017 CO2 28 12/30/2017 ALBUMIN 4.1 12/30/2017 PROT 6.9 12/30/2017 ANIONGAP 7 12/30/2017 ALT 14 12/30/2017 AST 25 12/30/2017 MAGNESIUM 1.9 10/05/2015 SODIUM 141 12/30/2017 POTASSIUM 4.1 12/30/2017 CHLORIDE 106 12/30/2017 CREATININE 0.79 12/30/2017 BUNSER 12 12/30/2017 GLUCOSE 120 12/30/2017 BILITOT 0.5 12/30/2017 CA125 11.8 10/03/2015 Assessment/Plan: 1. I am going to see the patient back for follow up in six months. 2. She has stable disease and no evidence of progression. 3. She will continue to follow up with Dr. Cr. 4. 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 simvastatin (ZOCOR) 20 mg tablet Take 1 tablet (20 mg total) by mouth nightly PROCTOSOL HC 2.5 % rectal cream APPLY RECTALLY THREE TIMES A DAY 0 09/25/2017 9 fesoterodine ER (TOVIAZ) 4 mg tablet extended release 24 hr Take 4 mg by mouth. 11/28/2017 8 valsartan-hydroC HLOROthiazide (DIOVAN-HCT) 160-12.5 mg per tabletIndication s:hypertension daily. [address] (CYMBALTA) 30 mg capsule daily. 9 coenzyme E00-scldeqb E 100-5 mg-unit capsuleIndicatio ns:supplement Take 1 tablet by mouth screen printing inspector before breakfast 4 cholecalciferol (VITAMIN D3) 2,000 unit capsule Take by mouth. 9 wheat dextrin (BENEFIBER CLEAR SF, DEXTRIN, ORAL) 9 ascorbic acid, vitamin C, 500 mg capsuleIndicatio ns:supplement Take 1 tablet by mouth screen printing inspector before breakfast 07/04/2016 4 added in this encounter Care Teams Professor Of Business Administration Relationship Specialty Start Date End Date Julio César Briseno MD PCP - General 10/01/16 documented as of this encounter
--- OUTSIDE RECORDS SUMMARY | 2024-06-25 22:38 | XMS_ITS | Encounter Summary ---
Author Organization [facility] Address [address] [place] [address] Phone Care Team Providers Care Alteration Tailor Apprentice Name Role Phone Julio César Briseno MD Primary Care Provider [phone] 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) Procedures ID OCTREOTIDE INJECTION, DEPOT Octreotide 28 Day Cycles - Carcinoid Eren Cr MD [address] [facility] [address] [place] [address] Phone: tel: fax: [address] [address] Phone: tel: fax: Referral ID Status Reason Start Date Expiration Date V isits Requested Visits Authorized [id number] Authorized 11/28/2017 02/05/2025 1 150 Encounter Details Date Type Department Care Team (Late st Contact Info) Description 07/14/2018 9:15 AM CHILD CARE CENTER ASSISTANT DIRECTOR Lab [facility] Oncology [address] [facility] [address] [facility] 7th [place] [address] [place] [id number] Malignant neoplasm metastatic to liver (CMS/HCC); Neuroendocrine carcinoma (CMS/HCC) Social History Tobacco Use Types Packs/Day Years Used Date Smoking Tobacco: Never Smokeless Tobacco: Never Alcohol Use Standard Drinks/Week Comments Yes 1 (1 standard drink = 0.6 oz pur e alcohol) Comments No Sex and Gender Information Value Date Recorded Sex Assigned at Not on file Legal Sex Female 2:41 PM CHILD CARE CENTER ASSISTANT DIRECTOR Gender Identity Not on file Sexual Orientation Straight 02/19/2021 9: 29 AM CDT Occupation Industry Job Start Date Job End Date retired Not on file Not on file Not on file documented as of this encounter Plan of Treatment Not on file documented as of this encounter Procedures Procedure Name Priority Date/Time Associated Diagnosis Comments CHROMOGRANIN A Routine 07/14/2018 9:10 AM CHILD CARE CENTER ASSISTANT DIRECTOR Malignant neoplasm metastatic to liver (CMS/HCC) Neuroendocrine carcinoma (CMS/HCC) COMPREHENSIVE METABOLIC PANEL STAT 07/14/2018 9:10 AM CHILD CARE CENTER ASSISTANT DIRECTOR Malignant neoplasm metastatic to liver (CMS/HCC) Neuroendocrine carcinoma (CMS/HCC) DIFFERENTIAL AUTO STAT 07/14/2018 9:0 5 AM CHILD CARE CENTER ASSISTANT DIRECTOR Malignant neoplasm metastatic to liver (CMS/HCC) Neuroendocrine carcinoma (CMS/HCC) CBC WITH AUTO DIFFERENTIAL STAT 07/14/2018 9:05 AM CHILD CARE CENTER ASSISTANT DIRECTOR Malignant neoplasm metastatic to liver (CMS/HCC) Neuroendocrine carcinoma (CMS/HCC) documented in this encounter Results * (ABNORMAL) Chromogranin A (07/14/2018 9:10 AM CHILD CARE CENTER ASSISTANT DIRECTOR) Chromogranin A 118(H) <93 ng/mL [facility] Comment: Impaired renal or hepatic [...] of malignant disease. Test Performed by: [facility] [address] [place] [address] Blood specimen (specimen) 07/14/2018 9:10 AM CHILD CARE CENTER ASSISTANT DIRECTOR 07/14/2018 9:45 AM CHILD CARE CENTER ASSISTANT DIRECTOR Narrative [facility] - 07/16/2018 10:11 AM CHILD CARE CENTER ASSISTANT DIRECTOR us Eren Cr MD LAB BLOOD ORDERABLES Final Re sult [facility] [place] [address] * (ABNORMAL) Comprehensive metabolic panel (07/14/2018 9:10 AM CHILD CARE CENTER ASSISTANT DIRECTOR) Sodium 140 135 - 145 mmol/L [facility] Potassium, pl 3.9 3.3 - 4.9 mmol/L [facility] Chloride 104 97 - 110 mmol/L [facility] CO2 28 22 - 32 mmol/L [facility] Anion gap 8 2 - 15 mmol/L [facility] BUN 15 8 - 25 mg/dL [facility] Creatinine 0.81 0.60 - 1.10 mg/dL [facility] Glucose 145 70 - 199 mg/dL [facility] [...] 2017. Calcium 10.4(H) 8.5 - 10.3 mg/dL [facility] Bilirubin, total 0.8 0.1 - 1.2 mg/dL [facility] Protein, pl 6.8 6.5 - 8.5 g/dL [facility] Albumin 4.2 3.5 - 5.0 g/dL [facility] Alk phos 86 40 - 130 Units/L [facility] ALT 17 7 - 45 Units/L [facility] AST 22 10 - 45 Units/L [facility] Blood specimen (specimen) 07/14/2018 9:10 AM CHILD CARE CENTER ASSISTANT DIRECTOR 07/14/2018 9:14 AM CHILD CARE CENTER ASSISTANT DIRECTOR Narrative [facility] - 07/14/2018 9:54 AM CHILD CARE CENTER ASSISTANT DIRECTOR us Eren Cr MD LAB BLOOD ORDERABLES Final Re sult [facility] [place] [address] * Differential, auto (07/14/2018 9:05 AM CHILD CARE CENTER ASSISTANT DIRECTOR) Neutrophil abs 3.6 1.8 - 6.6 K/cumm [facility] Comment:Testing performed by : [facility], [address] [place] [phone] Lymphocyte abs 1.8 1.2 - 3.3 K/cumm [facility] Comment:Testing performed by : [facility], [address] [place] [phone] Monocyte abs 0.5 0.2 - 1.2 K/cumm [facility] Comment:Testing performed by : [facility], [address] [place] [phone] Eosinophil abs 0.1 0.0 - 0.5 K/cumm [facility] Comment:Testing performed by : [facility], [address] [place] [phone] Basophil abs 0.1 0.0 - 0.2 K/cumm [facility] Comment:Testing performed by : [facility], [address] [place] [phone] Neutrophil pct 59.4 % [facility] Comment: Interpretive Data Percent cell count reference ranges are not reported, since discordance with absolute values may lead to misinterpretation of CBC data. Current Interpretive Data was last revised on 2017. Testing performed by: [facility], [address] [place] [phone] Lymphocyte pct 30.5 % [facility] Comment: Interpretive Data Percent cell count reference ranges are not reported, since discordance with absolute values may lead to misinterpretation of CBC data. Current Interpretive Data was last revised on 2017. Testing performed by: [facility], [address] [place] [phone] Monocyte pct 8.0 % [facility] Comment:Testing performed by : [facility], [address] [place] [phone] Eosinophil pct 1.1 % [facility] Comment:Testing performed by : [facility], [address] [place] [phone] Basophil pct 1.0 % [facility] Comment:Testing performed by : [facility], [address] [place] [phone] Blood specimen (specimen) 07/14/2018 9:05 AM CHILD CARE CENTER ASSISTANT DIRECTOR 07/14/2018 9:09 AM CHILD CARE CENTER ASSISTANT DIRECTOR Narrative [facility] - 07/14/2018 9:15 AM CHILD CARE CENTER ASSISTANT DIRECTOR Eren Cr MD LAB BLOOD ORDERABLES Final Re sult [facility] Department of Laboratories [place], [place] [id number] * (ABNORMAL) CBC with auto differential (07/14/2018 9:05 AM CHILD CARE CENTER ASSISTANT DIRECTOR) WBC 6.0 3.8 - 9.8 K/cumm [facility] Comment:Testing performed by : [facility], [address] [place] [phone] Hgb 14.7 12.1 - 15.1 g/dL [facility] Comment:Testing performed by : [facility], [address] [place], [place] [phone] Hct 42.5 36.1 - 44.3 % [facility] Comment:Testing performed by : [facility], [address] [place] [address] Plt 141 140 - 440 K/cumm [facility] Comment:Testing performed by : [facility], [address] [place] [address] MPV 7.9 6.8 - 10.4 fL [facility] Comment:Testing performed by : [place] [address] RBC 5.02(H) 3.90 - 5.00 M/cumm [facility] Comment:Testing performed by : [place] [address] MCV 84.6 80.0 - 97.6 fL [facility] Comment:Testing performed by : [facility], [address] [place] [address] MCH 29.2 26.7 - 33.7 pg [facility] Comment:Testing performed by : [place] [address] MCHC 34.5 32.7 - 35.5 g/dL [facility] Comment:Testing performed by : [place] [address] RDW CV 13.6 11.8 - 14.6 % [facility] Comment:Testing performed by : [place] [address] NRBC abs 0.01 0.00 - 0.01 K/cumm [facility] Comment:Testing performed by : [place] [id number] Blood specimen (specimen) 07/14/2018 9:05 AM CHILD CARE CENTER ASSISTANT DIRECTOR 07/14/2018 9:09 AM CHILD CARE CENTER ASSISTANT DIRECTOR Narrative [facility] - 07/14/2018 9:15 AM CHILD CARE CENTER ASSISTANT DIRECTOR Eren Cr MD LAB BLOOD ORDERABLES Final Re sult [facility] [place] [address] documented in this encounter Visit Diagnoses Diagnosis Malignant neoplasm metastatic to liver (HCC) Neuroendocrine carcinoma (HCC) Other malignant neoplasm of unspecified site documented in this encounter Orders Appointment Requests Count Last Ordered Date Fi rst Ordered Date ONCBCN LAB APPOINTMENT 1 07/14/2018 documented in this encounter Care Teams Alteration Tailor Apprentice Relationship Specialty Start Date End Date Julio César Briseno MD PCP - General 10/01/16 documented as of this encounter
--- OUTSIDE RECORDS SUMMARY | 2024-06-25 22:38 | XMS_ITS | Encounter Summary ---
Author Organization [facility] Address [address] [place] [address] Phone Care Team Providers Care Television Newscast Director Name Role Phone Julio César Briseno MD Primary Care Provider [phone] Reason for Referral * Diagnostic Imaging (Routine) - Closed Specialty Diagnoses / Procedures Referred By Contellen t Referred To Contact Radiology Diagnoses Malignant neoplasm metastatic to liver (HCC) Neuroendocrine carcinoma (HCC) Procedures CT Chest Abdomen Pelvis W Contrast Eren Cr MD Phone: tel: fax: [address] [address] Referral ID Status Reason Start Date Expiration Date Visits Re quested Visits Authorized [id number] Closed 04/21/2018 10/31/2019 1 1 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) Procedures [place] OCTREOTIDE INJECTION, DEPOT Octreotide 28 Day Cycles - Carcinoid Eren Cr MD [address] [facility] [address] [place] [address] Phone: tel: fax: [facility] [address] [place] [address] Phone: tel: fax: Referral ID Status Reason Start Date Expiration Date V isits Requested Visits Authorized [id number] Authorized 11/28/2017 02/05/2025 1 150 Encounter Details Date Type Department Care Team (Late st Contact Info) Description 04/21/2018 11:00 AM CDT Office Visit [facility] Oncology [address] [facility] 7th [place] [address] [place] [address] Eren Cr MD [address] [facility] [address] [address] [place] [address] Need for prophylactic vaccination and inoculation against influenza (Primary Dx); Malignant neoplasm metastatic to liver (CMS/HCC); Neuroendocrine carcinoma (CMS/HCC) Social History Tobacco Use Types Packs/Day Years Used Date Smoking Tobacco: Never Smokeless Tobacco: Never Alcohol Use Standard Drinks/Week Comments Yes 1 (1 standard drink = 0.6 oz pur e alcohol) Comments No Sex and Gender Information Value Date Recorded Sex Assigned at Not on file Legal Sex Female 2:41 PM CONCRETE SPREADER Gender Identity Not on file Sexual Orientation Straight 02/19/2021 9: 29 AM CDT Occupation Industry Job Start Date Job End Date retired Not on file Not on file Not on file documented as of this encounter Last Filed Vital Signs Vital Sign Reading Time Taken Comments Blood Pressure - - Pulse 96 04/21/2018 11:21 AM CDT Temperature 36.7 ??C (98.1 ??F) 04/21/2018 11:21 AM C DT Respiratory Rate 16 04/21/2018 11:21 AM CDT Oxygen Saturation 96% 04/21/2018 11:21 AM CDT Inhaled Oxygen Concentration - - Weight 84.5 kg (186 lb 3.2 oz) 04/21/2018 11:21 AM CDT Height - - Body Mass Index 33.51 01/01/2018 12:48 PM CDT documented in this encounter Progress Notes * Sabrina Willard NP - 04/21/2018 11:00 AM CDT MEDICAL ONCOLOGY OUTPATIENT ROV NOTE La Chung : 1950 DATE OF VISIT: 04/21/18 Oncology History TREATMENT HISTORY: 1. CT abdomen [...] time, she also underwent right colectomy in [facility] [place] by Dr. Greyson Reeves. Biopsy revealed [...] Neuroendocrine carcinoma (CMS/HCC) Interval History: La Chung is here today for follow up visit for metastatic ileal NET. She is accompanied by kalli. She received montly octreotide LAR, and had 6 month f/u imaging done before today's visit. She has stable disease. She will have about 3-5 BMs daily, and notes food triggers. She takes cholestyramine with improvement of loose stools. She has no fevers, chills, flushing or pain. She was curious about PRRT, and if this is something she needs to do next. She would also like to get the flu shot today. Allergies: Allergies Allergen Reactions ??? Vytorin 10-10 [Ezetimibe-Simvastatin] Muscle pain and Unknown Muscle weakness ??? Altace [Ramipril] Cough Medications: Outpatient Encounter Prescriptions as of 04/21/2018: ??? ascorbic acid, vitamin C, 500 mg capsule, Take 1 tablet by mouth., Disp: , Rfl: ??? cholecalciferol (VITAMIN D3) 2,000 unit capsule, Take by mouth., Disp: , Rfl: ??? coenzyme [id number] E (CO Q-10, WITH VIT E,) 100-5 mg-unit capsule, , Disp: , Rfl: ??? DULoxetine DR (CYMBALTA) 30 mg capsule, daily., Disp: , Rfl: ??? fesoterodine ER (TOVIAZ) 4 mg tablet extended release 24 hr, Take 4 mg by mouth., Disp: , Rfl: ??? olmesartan-hydrochlorothiazide (BENICAR HCT) 40-25 mg per tablet, Take 1 tablet by mouth daily., Disp: , Rfl: 3 ??? PROCTOSOL HC 2.5 % rectal cream, APPLY RECTALLY THREE TIMES A DAY, Disp: , Rfl: 0 ??? simvastatin (ZOCOR) 20 mg tablet, , Disp: , Rfl: ??? valsartan-hydroCHLOROthiazide (DIOVAN-HCT) 160-12.5 mg per tablet, daily., Disp: , Rfl: ??? wheat dextrin (BENEFIBER CLEAR SF, DEXTRIN, ORAL), , Disp: , Rfl: Facility-Administered Encounter Medications as of 04/21/2018: ??? [COMPLETED] ioversol (OPTIRAY 350) syringe syringe 100 mL, 100 mL, intravenous, Once in imaging, Eren Cr Jr., MD, 100 mL at 04/21/18 9538 ROS: A complete review of systems was preformed and was negative other than those mentioned in the aboveinterval history. All other systems negative. Objective: Most Recent Vitals: Temp: 36.7 ??C (98.1 ??F) Temp src: Oral Pulse: 96 Resp: 16 SpO2: 96 % Weight: 84.5 kg (186 lb 3.2 oz) Physical Exam: ECOG PS: 0 General: well [...] below. Lab Results Component Value Date WBC 7.1 04/21/2018 HGB 14.5 04/21/2018 HCT 43.0 04/21/2018 MCV 85.0 04/21/2018 LABPLAT 144 04/21/2018 NEUTROABS 3.9 04/21/2018 CMP: Lab Results Component Value Date/Time SODIUM 139 04/21/2018 10:29 AM POTASSIUM 3.5 04/21/2018 10:29 AM CO2 27 04/21/2018 10:29 AM BUNSER 19 04/21/2018 10:29 AM GLUCOSE 157 04/21/2018 10:29 AM CREATININE 0.89 04/21/2018 10:29 AM CALCIUM 10.1 04/21/2018 10:29 AM CHLORIDE 103 04/21/2018 10:29 AM ALBUMIN 4.3 04/21/2018 10:29 AM AST 25 04/21/2018 10:29 AM ALT 20 04/21/2018 10:29 AM ALKPHOS 85 04/21/2018 10:29 AM BILITOT 0.9 04/21/2018 10:29 AM PROT 6.6 04/21/2018 10:29 AM ANIONGAP 9 04/21/2018 10:29 AM Tumor Marker History Some values may be hidden. Unless noted otherwise, only the newest values recorded on each date aredisplayed. Tumor Markers Latest Ref Range 12/30/17 01/27/18 02/24/18 03/24/18 Chromogranin A <93 ng/mL 73 81 92 90 Comments are available for some flowsheets but are not being displayed. Imaging: CT Chest Abdomen Pelvis W Contrast Narrative: [...] anterior peritoneum. Unchanged retroperitoneal lymphadenopathy is noted. Impression: Stable pulmonary nodules, hepatic lesions, perihepatic implants, and peritoneal deposits with unchanged retroperitoneal, right supraclavicular, and mediastinal lymphadenopathy consistent with stable metastatic disease. Dictated by: Anthony Kumari M.D. Assessment & Plan: Ms. 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 She comes in for continued treatment and follow-up. 1. Metastatic neuroendocrine tumor of the ilium: La Chung has stable scans, which we have reviewed today. We discussed continuing with monthly Octreotide LAR injections, and return visit with imaging in 6 months from now. Given stable disease, no need for PRRT discussion at this time. I did review what this treatment is and what it entails, however would be in the setting of progressive disease. She verbalized understanding and had no further questions. I asked that she call if she develops new or worsening symptoms, in which case we could see her at a sooner visit date. Chromogranin A level is pending today, and will continue to check this monthly, along with other standard labs. 2. Influenza vaccine: Has received vaccination today. Sabrina Willard SENIOR IT RECRUITER Nurse Practitioner Medical Oncology In Collaboration with Dr. Eren Cr Daytime Babysitter completed by using [employer] speaking software, therefore, transcriptionvariances may occur. Cosigned by Eren Cr Jr., MD at 04/21/2018 3:51 PM CDT documented in this encounter Plan of Treatment Not on file documented as of this encounter Results * CBC with auto differential (10/13/2018 9:04 AM CDT) WBC 6.1 3.8 - 9.8 K/cumm [facility] Comment:Testing performed by : [facility], [address] [place] [phone] Hgb 14.4 12.1 - 15.1 g/dL [facility] Comment:Testing performed by : [facility], [facility] [address] Hct 42.4 36.1 - 44.3 % [facility] Comment:Testing performed by : [facility], [address] [place], [place] [id number] Plt 153 140 - 440 K/cumm [facility] Comment:Testing performed by : [facility], [address] [place], [place] [id number] MPV 7.9 6.8 - 10.4 fL [facility] Comment:Testing performed by : [place] [address] RBC 4.97 3.90 - 5.00 M/cumm [facility] Comment:Testing performed by : [facility], [address] [place] [address] MCV 85.2 80.0 - 97.6 fL [facility] Comment:Testing performed by : [facility], [address] [place], [place] [id number] MCH 29.0 26.7 - 33.7 pg [facility] Comment:Testing performed by : [place] [id number] MCHC 34.1 32.7 - 35.5 g/dL [facility] Comment:Testing performed by : [facility], [address] [place], [place] [id number] RDW CV 13.3 11.8 - 14.6 % [facility] Comment:Testing performed by : [place] [id number] NRBC abs 0.01 0.00 - 0.01 K/cumm [facility] Comment:Testing performed by : [facility], [address] [place], [place] [id number] Blood specimen (specimen) 10/13/2018 9:04 AM CDT 10/13/2018 9:05 AM CDT Narrative [facility] - 10/13/2018 9:10 AM CDT us Eren Cr MD LAB BLOOD ORDERABLES Final Re sult [facility] [place] [address] * (ABNORMAL) Chromogranin A (10/13/2018 9:04 AM CDT) Chromogranin A 151(H) <93 ng/mL [facility] Comment: Impaired renal or hepatic [...] absence of malignant disease. Test Performed by: [facility] [address] [place] [id number] Blood specimen (specimen) 10/13/2018 9:04 AM CDT 10/13/2018 9:24 AM CDT Narrative [facility] - 10/14/2018 3:30 PM CDT us Eren Cr MD LAB BLOOD ORDERABLES Final Re sult [facility] Department [place] [address] * (ABNORMAL) Comprehensive metabolic panel (10/13/2018 9:04 AM CDT) Sodium 141 135 - 145 mmol/L [facility] Potassium, pl 5.2(H) 3.3 - 4.9 mmol/L [facility] Chloride 103 97 - 110 mmol/L [facility] CO2 30 22 - 32 mmol/L [facility] Anion gap 8 2 - 15 mmol/L [facility] BUN 18 8 - 25 mg/dL [facility] Creatinine 0.97 0.60 - 1.10 mg/dL [facility] Glucose 113 70 - 199 mg/dL [facility] Comment: Interpretive Data Fasting glucose >/= [...] 2017. Calcium 10.8(H) 8.5 - 10.3 mg/dL [facility] Bilirubin, total 0.5 0.1 - 1.2 mg/dL [facility] Protein, pl 6.9 6.5 - 8.5 g/dL [facility] Albumin 4.4 3.5 - 5.0 g/dL [facility] Alk phos 91 40 - 130 Units/L [facility] ALT 20 7 - 45 Units/L [facility] AST 23 10 - 45 Units/L [facility] Blood specimen (specimen) 10/13/2018 9:04 AM CDT 10/13/2018 9:17 AM CDT Narrative [facility] - 10/13/2018 9:54 AM CDT us Eren Cr MD LAB BLOOD ORDERABLES Final Re sult [facility] [place] [address] * CT Chest Abdomen Pelvis W Contrast [...] deposits. Electronically signed by: Moses Verma M.D. Eren Cr MD IMG CT PROCEDURES Edited Resu lt - Final * (ABNORMAL) Chromogranin A (09/15/2018 6:45 AM CDT) Chromogranin A 132(H) <93 ng/mL [facility] Comment: Impaired renal [...] malignant disease. Test Performed by: [facility] [address] [facility], [place] [address] Blood specimen (specimen) 09/15/2018 6:45 AM CDT 09/15/2018 7:07 AM CDT Narrative [facility] - 09/17/2018 9:45 AM CDT us Eren Cr MD LAB BLOOD ORDERABLES Final Re sult [facility] Department [place] [address] * (ABNORMAL) Comprehensive metabolic panel (09/15/2018 6:45 AM CDT) Sodium 143 135 - 145 mmol/L [facility] Potassium, pl 4.4 3.3 - 4.9 mmol/L [facility] Chloride 107 97 - 110 mmol/L [facility] CO2 29 22 - 32 mmol/L [facility] Anion gap 7 2 - 15 mmol/L [facility] BUN 12 8 - 25 mg/dL [facility] Creatinine 0.87 0.60 - 1.10 mg/dL [facility] Glucose 148 70 - 199 mg/dL [facility] Comment: Interpretive Data Fasting glucose >/= [...] 2017. Calcium 10.2 8.5 - 10.3 mg/dL [facility] Bilirubin, total 0.4 0.1 - 1.2 mg/dL [facility] Protein, pl 6.2(L) 6.5 - 8.5 g/dL [facility] Albumin 4.0 3.5 - 5.0 g/dL [facility] Alk phos 76 40 - 130 Units/L [facility] ALT 16 7 - 45 Units/L [facility] AST 20 10 - 45 Units/L [facility] Blood specimen (specimen) 09/15/2018 6:45 AM CDT 09/15/2018 6:51 AM CDT Narrative [facility] - 09/15/2018 7:34 AM CDT us Eren Cr MD LAB BLOOD ORDERABLES Final Re sult [facility] Department [place] [address] * (ABNORMAL) CBC with auto differential (09/15/2018 6:43 AM CDT) WBC 4.8 3.8 - 9.8 K/cumm [facility] Comment:Testing performed by : [facility], [address] [place] [phone] Hgb 13.6 12.1 - 15.1 g/dL [facility] Comment:Testing performed by : [facility], [address] [place] [phone] Hct 40.1 36.1 - 44.3 % [facility] Comment:Testing performed by : [facility], [address] [place] [phone] Plt 127(L) 140 - 440 K/cumm [facility] Comment:Testing performed by : [facility], [address] [place] [phone] MPV 7.6 6.8 - 10.4 fL [facility] Comment:Testing performed by : [address] [phone] RBC 4.64 3.90 - 5.00 M/cumm [facility] Comment:Testing performed by : [address] [phone] MCV 86.4 80.0 - 97.6 fL [facility] Comment:Testing performed by : [facility], [address] [place] [phone] MCH 29.3 26.7 - 33.7 pg [facility] Comment:Testing performed by : [facility], [address] [place] [phone] MCHC 33.9 32.7 - 35.5 g/dL [facility] Comment:Testing performed by : [facility], [address] [place] [phone] RDW CV 13.6 11.8 - 14.6 % [facility] Comment:Testing performed by : [facility], [address] [place] [phone] NRBC abs 0.00 0.00 - 0.01 K/cumm [facility] Comment:Testing performed by : [facility], [address] [place] [phone] Blood specimen (specimen) 09/15/2018 6:43 AM CDT 09/15/2018 6:48 AM CDT Narrative [facility] - 09/15/2018 7:02 AM CDT us Eren Cr MD LAB BLOOD ORDERABLES Final Re sult [facility] Department [place] [address] * (ABNORMAL) Chromogranin A (08/11/2018 9:20 AM CONCRETE SPREADER) Chromogranin A 132(H) <93 ng/mL [facility] Comment: Impaired renal or hepatic [...] malignant disease. Test Performed by: [facility] [address] [place] [address] Blood specimen (specimen) 08/11/2018 9:20 AM CONCRETE SPREADER 08/11/2018 10:17 AM CONCRETE SPREADER Narrative [facility] - 08/12/2018 11:28 AM CONCRETE SPREADER us Eren Cr MD LAB BLOOD ORDERABLES Final Re sult [facility] Department [place] [address] * (ABNORMAL) Comprehensive metabolic panel (08/11/2018 9:20 AM CONCRETE SPREADER) Sodium 141 135 - 145 mmol/L [facility] Potassium, pl 4.6 3.3 - 4.9 mmol/L [facility] Chloride 105 97 - 110 mmol/L [facility] CO2 28 22 - 32 mmol/L [facility] Anion gap 8 2 - 15 mmol/L [facility] BUN 15 8 - 25 mg/dL [facility] Creatinine 0.87 0.60 - 1.10 mg/dL [facility] Glucose 131 70 - 199 mg/dL [facility] Comment: Interpretive Data Fasting glucose >/= [...] 2017. Calcium 10.8(H) 8.5 - 10.3 mg/dL [facility] Bilirubin, total 0.6 0.1 - 1.2 mg/dL [facility] Protein, pl 6.7 6.5 - 8.5 g/dL [facility] Albumin 4.2 3.5 - 5.0 g/dL [facility] Alk phos 88 40 - 130 Units/L [facility] ALT 20 7 - 45 Units/L [facility] AST 22 10 - 45 Units/L [facility] Blood specimen (specimen) 08/11/2018 9:20 AM CONCRETE SPREADER 08/11/2018 9:31 AM CONCRETE SPREADER Narrative [facility] - 08/11/2018 10:52 AM CONCRETE SPREADER us Erne Cr MD LAB BLOOD ORDERABLES Final Re sult [facility] Department [place] [address] * (ABNORMAL) CBC with auto differential (08/11/2018 9:17 AM CONCRETE SPREADER) WBC 5.8 3.8 - 9.8 K/cumm [facility] Comment:Testing performed by : [facility], [address] [place] [phone] Hgb 14.5 12.1 - 15.1 g/dL [facility] Comment:Testing performed by : [facility], [address] [place] [phone] Hct 42.8 36.1 - 44.3 % [facility] Comment:Testing performed by : [facility], [address] [place] [phone] Plt 137(L) 140 - 440 K/cumm [facility] Comment:Testing performed by : [facility], [address] [place] [phone] MPV 7.7 6.8 - 10.4 fL [facility] Comment:Testing performed by : [facility], [address] [place], [place] [id number] RBC 5.05(H) 3.90 - 5.00 M/cumm [facility] Comment:Testing performed by : [facility], [address] [place], [place] [id number] MCV 84.8 80.0 - 97.6 fL [facility] Comment:Testing performed by : [facility], [address] [place] [address] MCH 28.8 26.7 - 33.7 pg [facility] Comment:Testing performed by : [facility], [address] [place], [place] [id number] MCHC 33.9 32.7 - 35.5 g/dL [facility] Comment:Testing performed by : [facility], [address] [place], [place] [id number] RDW CV 13.5 11.8 - 14.6 % [facility] Comment:Testing performed by : [facility], [address] [place], [place] [id number] NRBC abs 0.00 0.00 - 0.01 K/cumm [facility] Comment:Testing performed by : [facility], [address] [place], [place] [id number] Blood specimen (specimen) 08/11/2018 9:17 AM CONCRETE SPREADER 08/11/2018 9:19 AM CONCRETE SPREADER Narrative [facility] - 08/11/2018 9:23 AM CONCRETE SPREADER Eren Cr MD LAB BLOOD ORDERABLES Final Re sult [facility] [place] [address] * (ABNORMAL) Chromogranin A (07/14/2018 9:10 AM CONCRETE SPREADER) Chromogranin A 118(H) <93 ng/mL [facility] Comment: Impaired renal or hepatic [...] absence of malignant disease. Test Performed by: [facility] [address] [place] [address] Blood specimen (specimen) 07/14/2018 9:10 AM CONCRETE SPREADER 07/14/2018 9:45 AM CONCRETE SPREADER Narrative [facility] - 07/16/2018 10:11 AM CONCRETE SPREADER Eren Cr MD LAB BLOOD ORDERABLES Final Re sult [facility] Department [place] [address] * (ABNORMAL) Comprehensive metabolic panel (07/14/2018 9:10 AM CONCRETE SPREADER) Pathologist [facility] Sodium 140 135 - 145 mmol/L [facility] Potassium, pl 3.9 3.3 - 4.9 mmol/L [facility] Chloride 104 97 - 110 mmol/L [facility] CO2 28 22 - 32 mmol/L [facility] Anion gap 8 2 - 15 mmol/L [facility] BUN 15 8 - 25 mg/dL [facility] Creatinine 0.81 0.60 - 1.10 mg/dL [facility] Glucose 145 70 - 199 mg/dL [facility] Comment: Interpretive Data Fasting glucose >/= [...] 2017. Calcium 10.4(H) 8.5 - 10.3 mg/dL [facility] Bilirubin, total 0.8 0.1 - 1.2 mg/dL [facility] Protein, pl 6.8 6.5 - 8.5 g/dL [facility] Albumin 4.2 3.5 - 5.0 g/dL [facility] Alk phos 86 40 - 130 Units/L [facility] ALT 17 7 - 45 Units/L [facility] AST 22 10 - 45 Units/L [facility] Blood specimen (specimen) 07/14/2018 9:10 AM CONCRETE SPREADER 07/14/2018 9:14 AM CONCRETE SPREADER Narrative [facility] - 07/14/2018 9:54 AM CONCRETE SPREADER Eren Cr MD LAB BLOOD ORDERABLES Final Re sult [facility] Department [place] [address] * (ABNORMAL) CBC with auto differential (07/14/2018 9:05 AM CONCRETE SPREADER) WBC 6.0 3.8 - 9.8 K/cumm [facility] Comment:Testing performed by : [facility], [facility] [phone] Hgb 14.7 12.1 - 15.1 g/dL [facility] Comment:Testing performed by : [facility], [address] [place] [phone] Hct 42.5 36.1 - 44.3 % [facility] Comment:Testing performed by : [facility], [address] [place] [phone] Plt 141 140 - 440 K/cumm [facility] Comment:Testing performed by : [facility], [address] [place], [place] [id number] MPV 7.9 6.8 - 10.4 fL [facility] Comment:Testing performed by : [facility], [address] [place] [address] RBC 5.02(H) 3.90 - 5.00 M/cumm [facility] Comment:Testing performed by : [facility], [address] [place] [address] MCV 84.6 80.0 - 97.6 fL [facility] Comment:Testing performed by : [facility], [address] [place] [address] MCH 29.2 26.7 - 33.7 pg [facility] Comment:Testing performed by : [place] [id number] MCHC 34.5 32.7 - 35.5 g/dL [facility] Comment:Testing performed by : [facility], [address] [place], [place] [id number] RDW CV 13.6 11.8 - 14.6 % [facility] Comment:Testing performed by : [facility], [address] [place], [place] [id number] NRBC abs 0.01 0.00 - 0.01 K/cumm [facility] Comment:Testing performed by : [place] [id number] Blood specimen (specimen) 07/14/2018 9:05 AM CONCRETE SPREADER 07/14/2018 9:09 AM CONCRETE SPREADER Narrative [facility] - 07/14/2018 9:15 AM CONCRETE SPREADER us Eren Cr MD LAB BLOOD ORDERABLES Final Re sult [facility] Department of Laboratories [place] [id number] * (ABNORMAL) CBC with auto differential (06/16/2018 8:53 AM CONCRETE SPREADER) WBC 4.7 3.8 - 9.8 K/cumm CERNER BJ Comment:Testing performed by : [place] [address] Hgb 14.0 12.1 - 15.1 g/dL CERNER BJ Comment:Testing performed by : [place] [address] Hct 41.2 36.1 - 44.3 % CERNER BJ Comment:Testing performed by : [place] [address] Plt 135(L) 140 - 440 K/cumm CERNER BJ Comment:Testing performed by : [place] [address] MPV 7.6 6.8 - 10.4 fL CERNER BJ Comment:Testing performed by : [place] [address] RBC 4.83 3.90 - 5.00 M/cumm CERNER BJ Comment:Testing performed by : [place] [address] MCV 85.3 80.0 - 97.6 fL CERNER BJ Comment:Testing performed by : [place] [address] MCH 29.0 26.7 - 33.7 pg CERNER BJ Comment:Testing performed by : [place] [address] MCHC 34.0 32.7 - 35.5 g/dL CERNER BJ Comment:Testing performed by : [place] [address] RDW CV 13.7 11.8 - 14.6 % CERNER BJ Comment:Testing performed by : [place] [address] NRBC abs 0.00 0.00 - 0.01 K/cumm CERNER BJ Comment:Testing performed by : [place] [address] Blood specimen (specimen) 06/16/2018 8:53 AM CONCRETE SPREADER 06/16/2018 8:55 AM CONCRETE SPREADER Narrative JASON BLACK - 06/16/2018 9:00 AM CONCRETE SPREADER us Erne Cr MD LAB BLOOD ORDERABLES Final Re sult AJSON [facility] Department [place] [address] * (ABNORMAL) Chromogranin A (06/16/2018 8:53 AM CONCRETE SPREADER) Chromogranin A 102(H) <93 ng/mL JASON [facility] Comment: Impaired renal or hepatic [...] malignant disease. Test Performed by: [facility] - [facility] [address] [place] [address] Blood specimen (specimen) 06/16/2018 8:53 AM CONCRETE SPREADER 06/16/2018 9:30 AM CONCRETE SPREADER Narrative JASON BLACK - 06/18/2018 10:26 AM CONCRETE SPREADER Eren Cr MD LAB BLOOD ORDERABLES Final Re sult [facility] Department [place] [address] * (ABNORMAL) Comprehensive metabolic panel (06/16/2018 8:53 AM CONCRETE SPREADER) Sodium 142 135 - 145 mmol/L [facility] Potassium, pl 4.4 3.3 - 4.9 mmol/L [facility] Chloride 106 97 - 110 mmol/L [facility] CO2 30 22 - 32 mmol/L [facility] Anion gap 6 2 - 15 mmol/L [facility] BUN 13 8 - 25 mg/dL [facility] Creatinine 0.85 0.60 - 1.10 mg/dL [facility] Glucose 89 70 - 199 mg/dL [facility] Comment: Interpretive Data Fasting glucose >/= [...] 2017. Calcium 10.5(H) 8.5 - 10.3 mg/dL [facility] Bilirubin, total 0.6 0.1 - 1.2 mg/dL [facility] Protein, pl 6.8 6.5 - 8.5 g/dL [facility] Albumin 4.2 3.5 - 5.0 g/dL [facility] Alk phos 88 40 - 130 Units/L [facility] ALT 20 7 - 45 Units/L [facility] AST 23 10 - 45 Units/L [facility] Blood specimen (specimen) 06/16/2018 8:53 AM CONCRETE SPREADER 06/16/2018 9:18 AM CONCRETE SPREADER Narrative [facility] - 06/16/2018 9:59 AM CONCRETE SPREADER Eren Cr MD LAB BLOOD ORDERABLES Final Re sult Performing Organization Address City/[facility]/ZIP Co de Phone Number JASON [facility] Department [place] [address] * (ABNORMAL) Chromogranin A (05/19/2018 9:05 AM CONCRETE SPREADER) Chromogranin A 106(H) <93 ng/mL [facility] Comment: Impaired renal or hepatic [...] malignant disease. Test Performed by: [facility] - [address] [address] Blood specimen (specimen) 05/19/2018 9:05 AM CONCRETE SPREADER 05/19/2018 9:35 AM CONCRETE SPREADER Narrative JASON [facility] - 05/20/2018 1:44 PM CONCRETE SPREADER Eren Cr MD LAB BLOOD ORDERABLES Final Re sult JASON [facility] [place] [address] * (ABNORMAL) Comprehensive metabolic panel (05/19/2018 9:05 AM CONCRETE SPREADER) Sodium 140 135 - 145 mmol/L [facility] Potassium, pl 4.0 3.3 - 4.9 mmol/L [facility] Chloride 103 97 - 110 mmol/L [facility] CO2 29 22 - 32 mmol/L [facility] Anion gap 8 2 - 15 mmol/L [facility] BUN 14 8 - 25 mg/dL [facility] Creatinine 0.95 0.60 - 1.10 mg/dL [facility] Glucose 113 70 - 199 mg/dL [facility] Comment: Interpretive Data Fasting glucose >/= [...] 2017. Calcium 10.9(H) 8.5 - 10.3 mg/dL [facility] Bilirubin, total 0.8 0.1 - 1.2 mg/dL [facility] Protein, pl 7.2 6.5 - 8.5 g/dL [facility] Albumin 4.6 3.5 - 5.0 g/dL [facility] Alk phos 95 40 - 130 Units/L [facility] ALT 18 7 - 45 Units/L [facility] AST 23 10 - 45 Units/L [facility] Blood specimen (specimen) 05/19/2018 9:05 AM CONCRETE SPREADER 05/19/2018 9:20 AM CONCRETE SPREADER Narrative [facility] - 05/19/2018 9:54 AM CONCRETE SPREADER Eren Cr MD LAB BLOOD ORDERABLES Final Re sult [facility] Department [place] [address] * (ABNORMAL) CBC with auto differential (05/19/2018 9:04 AM CONCRETE SPREADER) WBC 6.8 3.8 - 9.8 K/cumm CERNER BJ Comment:Testing performed by : [place] [id number] Hgb 15.1 12.1 - 15.1 g/dL CERNER BJ Comment:Testing performed by : [place] [id number] Hct 44.2 36.1 - 44.3 % CERNER BJ Comment:Testing performed by : [place] [id number] Plt 171 140 - 440 K/cumm CERNER BJ Comment:Testing performed by : [address] MPV 8.1 6.8 - 10.4 fL CERNER BJ Comment:Testing performed by : [place] [address] RBC 5.19(H) 3.90 - 5.00 M/cumm CERNER BJ Comment:Testing performed by : [place] [id number] MCV 85.1 80.0 - 97.6 fL CERNER BJ Comment:Testing performed by : [place] [id number] MCH 29.1 26.7 - 33.7 pg CERNER BJ Comment:Testing performed by : [place] [id number] MCHC 34.2 32.7 - 35.5 g/dL CERNER BJ Comment:Testing performed by : [place] [id number] RDW CV 13.8 11.8 - 14.6 % CERNER BJ Comment:Testing performed by : [place] [id number] NRBC abs 0.02(H) 0.00 - 0.01 K/cumm CERNER BJ Comment:Testing performed by : [place] [id number] Blood specimen (specimen) 05/19/2018 9:04 AM CONCRETE SPREADER 05/19/2018 9:06 AM CONCRETE SPREADER Narrative JASON BLACK - 05/19/2018 9:17 AM CONCRETE SPREADER Eren Cr MD LAB BLOOD ORDERABLES Final Re sult JASON [facility] Department [place] [address] documented in this encounter Visit Diagnoses Diagnosis Need for prophylactic vaccination and inoculation against influenza- Primary Malignant neoplasm metastatic to liver (HCC) [...] 1 tablet by mouth daily. 3 04/18/2018 11/24/2018 added in this encounter Orders Immunization/Injection Count Last Ordered Date First Ordered Date FLU VACCINE MDCK QUAD PF 4Y+ IM - FLUCELVAX 1 04/21/2018 Appointment Requests Count Last Ordered Date Fi rst Ordered Date ONCBCN INJECTION APPOINTMENT REQUEST 5 09/0505/19/2018 ONCBCN LAB APPOINTMENT 5 09/15/201805/19 ONCBCN CLINIC APPOINTMENT REQUEST 1 018 documented in this encounter Care Teams Television Newscast Director Relationship Specialty Start Date End Date Julio César Briseno MD PCP - General 10/01/16 documented as of this encounter
--- OUTSIDE RECORDS SUMMARY | 2024-06-25 22:38 | XMS_ITS | Encounter Summary ---
Author Organization [facility] Address [address] [place] [address] Phone Care Team Providers Care Drier Name Role Phone Julio César Briseno MD Primary Care Provider [phone] 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) Procedures [place] OCTREOTIDE INJECTION, DEPOT Octreotide 28 Day Cycles - Carcinoid Eren Cr MD [address] [facility] [address] [place] [address] Phone: tel: fax: [address] [address] Phone: tel: fax: Referral ID Status Reason Start Date Expiration Date V isits Requested Visits Authorized [id number] Authorized 11/28/2017 02/05/2025 1 150 Encounter Details Date Type Department Care Team (Late st Contact Info) Description 04/21/2018 12:00 PM CDT Infusion [facility] 7th [place] [address] 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); Neuroendocrine carcinoma (CMS/HCC) Social History Tobacco Use Types Packs/Day Years Used Date Smoking Tobacco: Never Smokeless Tobacco: Never Alcohol Use Standard Drinks/Week Comments Yes 1 (1 standard drink = 0.6 oz pur e alcohol) Comments No Sex and Gender Information Value Date Recorded Sex Assigned at Not on file 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 Discharged er ambulatory. documented in this encounter Plan of [...] 30 mg 30 mg, intramuscular, Once, On 04/21/18 at 1245, For 1 dose, Refrigerate. For IM administration only. 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),Neuroendocrine carcinoma (HCC) Given 04/21/2018 12:20 PM CDT 30 mg Left Dorsogluteal/Butt ock documented in this encounter Orders Medications Ordered That Brett ht Not Have Been Administered Count Last Ordered Date First Ordered Date octreotide LAR (SandoSTATIN LAR) extended release intramuscular injection 30 mg 1 04/21/2018 Appointment Requests Count Last Ordered Date Fi rst Ordered Date ONCBCN INJECTION APPOINTMENT REQUEST 1 04/07 documented in this encounter Care Teams Drier Relationship Specialty Start Date End Date Julio César Briseno MD PCP - General 10/01/16 documented as of this encounter
--- OUTSIDE RECORDS SUMMARY | 2024-06-25 22:38 | XMS_ITS | Encounter Summary ---
Author Organization [facility] Address [address] [place] [address] Phone Care Team Providers Care Hygiene Coordinator Name Role Phone Julio César Briseno MD Primary Care Provider [phone] 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) Procedures [place] OCTREOTIDE INJECTION, DEPOT Octreotide 28 Day Cycles - Carcinoid Eren Cr MD [address] [facility] [address] [place] [address] Phone: tel: fax: [address] [address] Phone: tel: fax: Referral ID Status Reason Start Date Expiration Date V isits Requested Visits Authorized [id number] Authorized 11/28/2017 02/05/2025 1 150 Encounter Details Date Type Department Care Team (Late st Contact Info) Description 12/30/2017 9:15 AM CDT Lab [facility] [address] [facility] 7th [place] [address] [place] [id number] Malignant neoplasm metastatic to liver (CMS/HCC); Neuroendocrine carcinoma (CMS/HCC) Social History Tobacco Use Types Packs/Day Years Used Date Smoking Tobacco: Former Comments Unknown Sex and Gender Information Value Date Recorded Sex Assigned at Not on file 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 Gender Identity Not on file Sexual Orientation Straight 02/19/2021 9: 29 AM CDT documented as of this encounter Plan of Treatment Not on file documented as of this encounter Procedures Procedure Name Priority Date/Time Associated Diagnosis Comments CHROMOGRANIN A Routine 12/30/2017 8:44 AM CDT Malignant neoplasm metastatic to liver (CMS/HCC) Neuroendocrine carcinoma (CMS/HCC) COMPREHENSIVE METABOLIC PANEL STAT 12/30/2017 8:44 AM CDT Malignant neoplasm metastatic to liver (CMS/HCC) Neuroendocrine carcinoma (CMS/HCC) DIFFERENTIAL AUTO STAT 12/30/2017 8:3 7 AM CDT Malignant neoplasm metastatic to liver (CMS/HCC) Neuroendocrine carcinoma (CMS/HCC) CBC WITH AUTO DIFFERENTIAL STAT 12/30/2017 8:37 AM CDT Malignant neoplasm metastatic to liver (CMS/HCC) Neuroendocrine carcinoma (CMS/HCC) documented in this encounter Results * Chromogranin A (12/30/2017 8:44 AM CDT) Chromogranin A 73 <93 ng/mL JASON [facility] Comment: A reagent change was implemented on date 11/13/2017. Measured chromogranin A concentrations were on average 7% higher using the new reagent formulation. However, for individual specimens the variation may exceed 7%. Upon request, samples previously submitted within the last six months can be retested using the new reagent formulation. ADDITIONAL INFORMATION This test was developed and its performance characteristics determined by [facility] in a manner consistent with [...] Performed by: [facility] [address] [place] [address] Blood specimen (specimen) 12/30/2017 8:44 AM CDT 12/30/2017 11:47 AM CDT Narrative [facility] - 12/31/2017 12:11 PM CDT us Eren Cr MD LAB BLOOD ORDERABLES Final Re sult [facility] [place] [address] * Comprehensive metabolic panel (12/30/2017 8:44 AM CDT) Sodium 141 135 - 145 mmol/L [facility] Potassium, pl 4.1 3.3 - 4.9 mmol/L [facility] CO2 28 22 - 32 mmol/L [facility] BUN 12 8 - 25 mg/dL [facility] Glucose 120 [...] interpretive data was last revised 2017. Creatinine 0.79 0.60 - 1.10 mg/dL [facility] Calcium 10.1 8.5 - 10.3 mg/dL [facility] Chloride 106 97 - 110 mmol/L [facility] Albumin 4.1 3.5 - 5.0 g/dL [facility] AST 25 10 - 45 Units/L [facility] ALT 14 7 - 45 Units/L [facility] Alk phos 95 40 - 130 Units/L [facility] Bilirubin, total 0.5 0.1 - 1.2 mg/dL [facility] Protein, pl 6.9 6.5 - 8.5 g/dL [facility] Anion gap 7 2 - 15 mmol/L [facility] Blood specimen (specimen) 12/30/2017 8:44 AM CDT 12/30/2017 9:05 AM CDT Narrative [facility] - 12/30/2017 9:40 AM CDT us Eren Cr MD LAB BLOOD ORDERABLES Final Re sult [facility] [place] [address] * Differential, auto (12/30/2017 8:37 AM CDT) Neutrophil abs 3.9 1.8 - 6.6 K/cumm [facility] Lymphocyte abs 1.7 1.2 - 3.3 K/cumm [facility] Monocyte abs 0.4 0.2 - 1.2 K/cumm [facility] Eosinophil abs 0.2 0.0 - 0.5 K/cumm [facility] Basophil abs 0.0 0.0 - 0.2 K/cumm [facility] Neutrophil pct 62.7 % [facility] Comment: Interpretive Data Percent cell count reference ranges are not reported, since discordance with absolute values may lead to misinterpretation of CBC data. Current Interpretive Data was last revised on 2017. Lymphocyte pct 27.2 % [facility] Comment: Interpretive Data Percent cell count reference ranges are not reported, since discordance with absolute values may lead to misinterpretation of CBC data. Current Interpretive Data was last revised on 2017. Monocyte pct 6.4 % [facility] Eosinophil pct 3.1 % [facility] Basophil pct 0.6 % [facility] Blood specimen (specimen) 12/30/2017 8:37 AM CDT 12/30/2017 8:41 AM CDT Narrative [facility] - 12/30/2017 8:45 AM CDT us Eren Cr MD LAB BLOOD ORDERABLES Final Re sult Performing Organization Address [facility] Co de Phone Number [facility] [place] [address] * (ABNORMAL) CBC with auto differential (12/30/2017 8:37 AM CDT) WBC 6.2 3.8 - 9.8 K/cumm [facility] RBC 4.72 3.90 - 5.00 M/cumm [facility] Hgb 13.6 12.1 - 15.1 g/dL [facility] Hct 40.3 36.1 - 44.3 % [facility] MCV 85.5 80.0 - 97.6 fL [facility] MCH 28.9 26.7 - 33.7 pg [facility] MCHC 33.8 32.7 - 35.5 g/dL [facility] RDW CV 13.5 11.8 - 14.6 % [facility] Plt 152 140 - 440 K/cumm [facility] MPV 7.5 6.8 - 10.4 fL [facility] NRBC abs 0.03(H) 0.00 - 0.01 K/cumm [facility] Blood specimen (specimen) 12/30/2017 8:37 AM CDT 12/30/2017 8:41 AM CDT Narrative [facility] - 12/30/2017 8:45 AM CDT us Eren Cr MD LAB BLOOD ORDERABLES Final Re sult Performing Organization Address City/[facility]/ZIP Co de Phone Number [facility] [place] [address] documented in this encounter Visit Diagnoses Diagnosis Malignant neoplasm metastatic to liver (HCC) Neuroendocrine carcinoma (HCC) Other malignant neoplasm of unspecified site documented in this encounter Orders Appointment Requests Count Last Ordered Date Fi rst Ordered Date ONCBCN LAB APPOINTMENT 1 12/30/2017 documented in this encounter Care Teams Hygiene Coordinator Relationship Specialty Start Date End Date Julio César Briseno MD PCP - General 10/01/16 documented as of this encounter
--- OUTSIDE RECORDS SUMMARY | 2024-06-25 22:38 | XMS_ITS | Encounter Summary ---
Author Organization [facility] Address [address] [place] [address] Care Team Providers Care Leather Shaver Name Role Phone Julio César Briseno MD Primary Care Provider [phone] Encounter Details Date Type Department Care Team (Late st Contact Info) Description 06/20/2018 10:10 AM PRINTING EQUIPMENT MECHANIC Lab [address] [address] Social History Tobacco Use Types Packs/Day Years Used Date Smoking Tobacco: Never Smokeless Tobacco: Never Alcohol Use Standard Drinks/Week Comments Yes 1 (1 standard drink = 0.6 oz pur e alcohol) Comments No Sex and Gender Information Value Date Recorded Sex Assigned at Not on file 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
--- OUTSIDE RECORDS SUMMARY | 2024-06-25 22:38 | XMS_ITS | Encounter Summary ---
Author Organization [facility] Address [address] [place] [address] Phone Care Team Providers Care Oil Well Service Operator Helper Name Role Phone Julio César Briseno MD Primary Care Provider [phone] 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) Procedures [place] OCTREOTIDE INJECTION, DEPOT Octreotide 28 Day Cycles - Carcinoid Eren Cr MD [address] [facility] [address] [place] [address] Phone: tel: fax: [address] [address] Phone: tel: fax: Referral ID Status Reason Start Date Expiration Date V isits Requested Visits Authorized [id number] Authorized 11/28/2017 02/05/2025 1 150 Encounter Details Date Type Department Care Team (Late st Contact Info) Description 05/19/2018 9:15 AM EQUIPMENT VALIDATION ENGINEER Lab [facility] Oncology [address] [facility] Advanced Medicine 7th [place] [address] [place] [id number] Malignant neoplasm metastatic to liver (CMS/HCC); Neuroendocrine carcinoma (CMS/HCC) Social History Tobacco Use Types Packs/Day Years Used Date Smoking Tobacco: Never Smokeless Tobacco: Never Alcohol Use Standard Drinks/Week Comments Yes 1 (1 standard drink = 0.6 oz pur e alcohol) Comments No Sex and Gender Information Value Date Recorded Sex Assigned at Not on file Legal Sex Female 2:41 PM EQUIPMENT VALIDATION ENGINEER Gender Identity Not on file Sexual Orientation Straight 02/19/2021 9: 29 AM CDT Occupation Industry Job Start Date Job End Date retired Not on file Not on file Not on file documented as of this encounter Plan of Treatment Not on file documented as of this encounter Procedures Procedure Name Priority Date/Time Associated Diagnosis Comments CHROMOGRANIN A Routine 05/19/2018 9:05 AM EQUIPMENT VALIDATION ENGINEER Malignant neoplasm metastatic to liver (CMS/HCC) Neuroendocrine carcinoma (CMS/HCC) COMPREHENSIVE METABOLIC PANEL STAT 05/19/2018 9:05 AM EQUIPMENT VALIDATION ENGINEER Malignant neoplasm metastatic to liver (CMS/HCC) Neuroendocrine carcinoma (CMS/HCC) DIFFERENTIAL AUTO STAT 05/19/2018 9:0 4 AM EQUIPMENT VALIDATION ENGINEER Malignant neoplasm metastatic to liver (CMS/HCC) Neuroendocrine carcinoma (CMS/HCC) CBC WITH AUTO DIFFERENTIAL STAT 05/19/2018 9:04 AM EQUIPMENT VALIDATION ENGINEER Malignant neoplasm metastatic to liver (CMS/HCC) Neuroendocrine carcinoma (CMS/HCC) documented in this encounter Results * (ABNORMAL) Chromogranin A (05/19/2018 9:05 AM EQUIPMENT VALIDATION ENGINEER) Chromogranin A 106(H) <93 ng/mL [facility] Comment: Impaired renal or hepatic [...] developed and its performance characteristics determined by [facility] in a manner consistent with CLIA requirements. [...] absence of malignant disease. Test Performed by: [facility] [address] [place] [address] Blood specimen (specimen) 05/19/2018 9:05 AM EQUIPMENT VALIDATION ENGINEER 05/19/2018 9:35 AM EQUIPMENT VALIDATION ENGINEER Narrative [facility] - 05/20/2018 1:44 PM EQUIPMENT VALIDATION ENGINEER us Eren Cr MD LAB BLOOD ORDERABLES Final Re sult [facility] Department [place] [address] * (ABNORMAL) Comprehensive metabolic panel (05/19/2018 9:05 AM EQUIPMENT VALIDATION ENGINEER) Sodium 140 135 - 145 mmol/L [facility] Potassium, pl 4.0 3.3 - 4.9 mmol/L [facility] Chloride 103 97 - 110 mmol/L [facility] CO2 29 22 - 32 mmol/L [facility] Anion gap 8 2 - 15 mmol/L [facility] BUN 14 8 - 25 mg/dL [facility] Creatinine 0.95 0.60 - 1.10 mg/dL [facility] Glucose 113 70 - 199 mg/dL [facility] Comment: Interpretive Data Fasting glucose >/= [...] 2017. Calcium 10.9(H) 8.5 - 10.3 mg/dL [facility] Bilirubin, total 0.8 0.1 - 1.2 mg/dL [facility] Protein, pl 7.2 6.5 - 8.5 g/dL [facility] Albumin 4.6 3.5 - 5.0 g/dL [facility] Alk phos 95 40 - 130 Units/L [facility] ALT 18 7 - 45 Units/L [facility] AST 23 10 - 45 Units/L [facility] Blood specimen (specimen) 05/19/2018 9:05 AM EQUIPMENT VALIDATION ENGINEER 05/19/2018 9:20 AM EQUIPMENT VALIDATION ENGINEER Narrative [facility] - 05/19/2018 9:54 AM EQUIPMENT VALIDATION ENGINEER us Eren Cr MD LAB BLOOD ORDERABLES Final Re sult [facility] Department [place] [address] * Differential, auto (05/19/2018 9:04 AM EQUIPMENT VALIDATION ENGINEER) Neutrophil abs 3.8 1.8 - 6.6 K/cumm [facility] Comment:Testing performed by : [facility], [address] [place] [phone] Lymphocyte abs 2.3 1.2 - 3.3 K/cumm [facility] Comment:Testing performed by : [facility], [address] [place] [phone] Monocyte abs 0.6 0.2 - 1.2 K/cumm [facility] Comment:Testing performed by : [facility], [address] [place] [phone] Eosinophil abs 0.1 0.0 - 0.5 K/cumm [facility] Comment:Testing performed by : [facility], [address] [place] [phone] Basophil abs 0.1 0.0 - 0.2 K/cumm [facility] Comment:Testing performed by : [facility], [address] [place] [phone] Neutrophil pct 55.7 % [facility] Comment: Interpretive Data Percent cell count reference ranges are not reported, since discordance with absolute values may lead to misinterpretation of CBC data. Current Interpretive Data was last revised on 2017. Testing performed by: [facility], [address] [place] [phone] Lymphocyte pct 33.4 % [facility] Comment: Interpretive Data Percent cell count reference ranges are not reported, since discordance with absolute values may lead to misinterpretation of CBC data. Current Interpretive Data was last revised on 2017. Testing performed by: [facility], [address] [place] [phone] Monocyte pct 8.4 % [facility] Comment:Testing performed by : [facility], [address] [place] [phone] Eosinophil pct 1.5 % [facility] Comment:Testing performed by : [facility], [address] [place] [phone] Basophil pct 1.0 % [facility] Comment:Testing performed by : [facility], [address] [place] [phone] Blood specimen (specimen) 05/19/2018 9:04 AM EQUIPMENT VALIDATION ENGINEER 05/19/2018 9:06 AM EQUIPMENT VALIDATION ENGINEER Narrative [facility] - 05/19/2018 9:17 AM EQUIPMENT VALIDATION ENGINEER Eren Cr MD LAB BLOOD ORDERABLES Final Re s[facility] Department [place] [address] * (ABNORMAL) CBC with auto differential (05/19/2018 9:04 AM EQUIPMENT VALIDATION ENGINEER) WBC 6.8 3.8 - 9.8 K/cumm [facility] Comment:Testing performed by : [facility], [address] [place] [phone] Hgb 15.1 12.1 - 15.1 g/dL [facility] Comment:Testing performed by : [facility], [address] [place] [address] Hct 44.2 36.1 - 44.3 % [facility] Comment:Testing performed by : [facility], [address] [place] [address] Plt 171 140 - 440 K/cumm [facility] Comment:Testing performed by : [place] [address] MPV 8.1 6.8 - 10.4 fL [facility] Comment:Testing performed by : [place] [address] RBC 5.19(H) 3.90 - 5.00 M/cumm [facility] Comment:Testing performed by : [place] [address] MCV 85.1 80.0 - 97.6 fL [facility] Comment:Testing performed by : [place] [address] MCH 29.1 26.7 - 33.7 pg [facility] Comment:Testing performed by : [place] [address] MCHC 34.2 32.7 - 35.5 g/dL [facility] Comment:Testing performed by : [place] [address] RDW CV 13.8 11.8 - 14.6 % [facility] Comment:Testing performed by : [place] [address] NRBC abs 0.02(H) 0.00 - 0.01 K/cumm [facility] Comment:Testing performed by : [place] [address] Blood specimen (specimen) 05/19/2018 9:04 AM EQUIPMENT VALIDATION ENGINEER 05/19/2018 9:06 AM EQUIPMENT VALIDATION ENGINEER Narrative [facility] - 05/19/2018 9:17 AM EQUIPMENT VALIDATION ENGINEER Eren Cr MD LAB BLOOD ORDERABLES Final Re sult [facility] Department [place] [address] documented in this encounter Visit Diagnoses Diagnosis Malignant neoplasm metastatic to liver (HCC) Neuroendocrine carcinoma (HCC) Other malignant neoplasm of unspecified site documented in this encounter Orders Appointment Requests Count Last Ordered Date Fi rst Ordered Date ONCBCN LAB APPOINTMENT 1 05/19/2018 documented in this encounter Care Teams Oil Well Service Operator Helper Relationship Specialty Start Date End Date Julio César Briseno MD PCP - General 10/01/16 documented as of this encounter
--- OUTSIDE RECORDS SUMMARY | 2024-06-25 22:38 | XMS_ITS | Encounter Summary ---
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 [address] [place] [address] Phone: tel: fax: [address] [address] Phone: tel: fax: Referral ID Status Reason Start Date Expiration Date V isits Requested Visits Authorized [id number] Authorized 11/28/2017 02/05/2025 1 150 Encounter Details Date Type Department Care Team (Late st Contact Info) Description 06/16/2018 9:00 AM RN HEMODIALYSIS Lab [facility] Oncology [address] [facility] Advanced Medicine 7th [place] [address] [place] [phone] Malignant neoplasm metastatic to liver (CMS/HCC); Neuroendocrine carcinoma (CMS/HCC) Social History Tobacco Use Types Packs/Day Years Used Date Smoking Tobacco: Never Smokeless Tobacco: Never Alcohol Use Standard Drinks/Week Comments Yes 1 (1 standard drink = 0.6 oz pur e alcohol) Comments No Sex and Gender Information Value Date Recorded Sex Assigned at Not on file Legal Sex Female 2:41 PM RN HEMODIALYSIS Gender Identity Not on file Sexual Orientation Straight 02/19/2021 9: 29 AM CDT Occupation Industry Job Start Date Job End Date retired Not on file Not on file Not on file documented as of this encounter Plan of Treatment Not on file documented as of this encounter Procedures Procedure Name Priority Date/Time Associated Diagnosis Comments DIFFERENTIAL AUTO STAT 06/16/2018 8:5 3 AM RN HEMODIALYSIS Malignant neoplasm metastatic to liver (CMS/HCC) Neuroendocrine carcinoma (CMS/HCC) CBC WITH AUTO DIFFERENTIAL STAT 06/16/2018 8:53 AM RN HEMODIALYSIS Malignant neoplasm metastatic to liver (CMS/HCC) Neuroendocrine carcinoma (CMS/HCC) CHROMOGRANIN A Routine 06/16/2018 8:53 AM RN HEMODIALYSIS Malignant neoplasm metastatic to liver (CMS/HCC) Neuroendocrine carcinoma (CMS/HCC) COMPREHENSIVE METABOLIC PANEL STAT 06/16/2018 8:53 AM RN HEMODIALYSIS Malignant neoplasm metastatic to liver (CMS/HCC) Neuroendocrine carcinoma (CMS/HCC) documented in this encounter Results * Differential, auto (06/16/2018 8:53 AM RN HEMODIALYSIS) Neutrophil abs 2.7 1.8 - 6.6 K/cumm [facility] Comment:Testing performed by : [facility], [facility] [phone] Lymphocyte abs 1.4 1.2 - 3.3 K/cumm [facility] Comment:Testing performed by : [facility], [facility] [phone] Monocyte abs 0.5 0.2 - 1.2 K/cumm [facility] Comment:Testing performed by : [facility], [facility] [phone] Eosinophil abs 0.1 0.0 - 0.5 K/cumm [facility] Comment:Testing performed by : [facility], [address] [place] [phone] Basophil abs 0.0 0.0 - 0.2 K/cumm [facility] Comment:Testing performed by : [facility], [address] [place] [phone] Neutrophil pct 57.2 % [facility] Comment: Interpretive Data Percent cell count reference ranges are not reported, since discordance with absolute values may lead to misinterpretation of CBC data. Current Interpretive Data was last revised on 2017. Testing performed by: [facility], [address] [place] [phone] Lymphocyte pct 30.7 % [facility] Comment: Interpretive Data Percent cell count reference ranges are not reported, since discordance with absolute values may lead to misinterpretation of CBC data. Current Interpretive Data was last revised on 2017. Testing performed by: [facility], [address] [place] [phone] Monocyte pct 9.8 % [facility] Comment:Testing performed by : [facility], [address] [place] [phone] Eosinophil pct 1.5 % [facility] Comment:Testing performed by : [facility], [address] [place] [phone] Basophil pct 0.8 % [facility] Comment:Testing performed by : [facility], [address] [place] [phone] Blood specimen (specimen) 06/16/2018 8:53 AM RN HEMODIALYSIS 06/16/2018 8:55 AM RN HEMODIALYSIS Narrative [facility] - 06/16/2018 9:00 AM RN HEMODIALYSIS us Eren rC MD LAB BLOOD ORDERABLES Final Re sult [facility] [place] [address] * (ABNORMAL) CBC with auto differential (06/16/2018 8:53 AM RN HEMODIALYSIS) WBC 4.7 3.8 - 9.8 K/cumm [facility] Comment:Testing performed by : [facility], [address] [place] [address] Hgb 14.0 12.1 - 15.1 g/dL [facility] Comment:Testing performed by : [place] [address] Hct 41.2 36.1 - 44.3 % [facility] Comment:Testing performed by : [facility], [address] [place] [address] Plt 135(L) 140 - 440 K/cumm [facility] Comment:Testing performed by : [place] [address] MPV 7.6 6.8 - 10.4 fL [facility] Comment:Testing performed by : [place] [address] RBC 4.83 3.90 - 5.00 M/cumm [facility] Comment:Testing performed by : [place] [address] MCV 85.3 80.0 - 97.6 fL [facility] Comment:Testing performed by : [place] [address] MCH 29.0 26.7 - 33.7 pg [facility] Comment:Testing performed by : [place] [address] MCHC 34.0 32.7 - 35.5 g/dL [facility] Comment:Testing performed by : [place] [address] RDW CV 13.7 11.8 - 14.6 % [facility] Comment:Testing performed by : [place] [address] NRBC abs 0.00 0.00 - 0.01 K/cumm [facility] Comment:Testing performed by : [place] [address] Blood specimen (specimen) 06/16/2018 8:53 AM RN HEMODIALYSIS 06/16/2018 8:55 AM RN HEMODIALYSIS Narrative [facility] - 06/16/2018 9:00 AM RN HEMODIALYSIS Eren Cr MD LAB BLOOD ORDERABLES Final Re sult Performing Organization Address [facility] de Phone Number [facility] [place] [address] * (ABNORMAL) Chromogranin A (06/16/2018 8:53 AM RN HEMODIALYSIS) Chromogranin A 102(H) <93 ng/mL [facility] Comment: Impaired renal or hepatic [...] developed and its performance characteristics determined by [facility] in a manner consistent with [...] absence of malignant disease. Test Performed by: [facility] [address] [place] [address] Blood specimen (specimen) 06/16/2018 8:53 AM RN HEMODIALYSIS 06/16/2018 9:30 AM RN HEMODIALYSIS Narrative [facility] - 06/18/2018 10:26 AM RN HEMODIALYSIS Eren Cr MD LAB BLOOD ORDERABLES Final Re sult Performing Organization Address [facility] Co de Phone Number [facility] [place] [address] * (ABNORMAL) Comprehensive metabolic panel (06/16/2018 8:53 AM RN HEMODIALYSIS) Sodium 142 135 - 145 mmol/L [facility] Potassium, pl 4.4 3.3 - 4.9 mmol/L [facility] Chloride 106 97 - 110 mmol/L [facility] CO2 30 22 - 32 mmol/L [facility] Anion gap 6 2 - 15 mmol/L [facility] BUN 13 8 - 25 mg/dL [facility] Creatinine 0.85 0.60 - 1.10 mg/dL [facility] Glucose 89 70 - 199 mg/dL [facility] [...] 2017. Calcium 10.5(H) 8.5 - 10.3 mg/dL [facility] Bilirubin, total 0.6 0.1 - 1.2 mg/dL [facility] Protein, pl 6.8 6.5 - 8.5 g/dL [facility] Albumin 4.2 3.5 - 5.0 g/dL [facility] Alk phos 88 40 - 130 Units/L [facility] ALT 20 7 - 45 Units/L [facility] AST 23 10 - 45 Units/L [facility] Blood specimen (specimen) 06/16/2018 8:53 AM RN HEMODIALYSIS 06/16/2018 9:18 AM RN HEMODIALYSIS Narrative [facility] - 06/16/2018 9:59 AM RN HEMODIALYSIS us Eren Cr MD LAB BLOOD ORDERABLES Final Re sult [facility] [place] [address] documented in this encounter Visit Diagnoses Diagnosis Malignant neoplasm metastatic to liver (HCC) Neuroendocrine carcinoma (HCC) Other malignant neoplasm of unspecified site documented in this encounter Orders Appointment Requests Count Last Ordered Date Fi rst Ordered Date ONCBCN LAB APPOINTMENT 1 06/16/2018 documented in this encounter Care Teams Pipe Smoking Machine Offbearer Relationship Specialty Start Date End Date Julio César Briseno MD PCP - General 10/01/16 documented as of this encounter
--- OUTSIDE RECORDS SUMMARY | 2024-06-25 22:38 | XMS_ITS | Encounter Summary ---
Author Organization [facility] Address [address] [place] [address] Care Team Providers Care Advertising Representative Name Role Phone Julio César Briseno MD Primary Care Provider [phone] Reason for Visit * Diagnostic Lab (Routine) - Closed Specialty Diagnoses / Procedures Referred By Evelyne bowman Referred To Contact Lab Diagnoses Carcinoid tumor Procedures Cytology Oksana Rivas NP Phone: tel: fax: Referral ID Status Reason Start Date Expiration Date Visits Re quested Visits Authorized [id number] Closed 06/18/2018 12/28/2019 1 1 Encounter Details Date Type Department Care Team (Late st Contact Info) Description 06/19/2018 1:35 AM MARKETING TEACHER Lab [facility] PATHOLOGY [address] [place] [address] Carcinoid tumor Social History Tobacco Use Types Packs/Day Years Used Date Smoking Tobacco: Never Smokeless Tobacco: Never Alcohol Use Standard Drinks/Week Comments Yes 1 (1 standard drink = 0.6 oz pur e alcohol) Comments No Sex and Gender Information Value Date Recorded Sex Assigned at Not on file Legal Sex Female 2:41 PM MARKETING TEACHER Gender Identity Not on file Sexual Orientation Straight 02/19/2021 9: 29 AM CDT Occupation Industry Job Start Date Job End Date retired Not on file Not on file Not on file documented as of this encounter Plan of Treatment Not on file documented as of this encounter Procedures Procedure Name Priority Date/Time Associated Diagnosis Comments CYTOLOGY Routine 06/18/2018 3:12 PM MARKETING TEACHER Carcinoid tumor documented in this encounter Results * Cytology (06/18/2018 3:12 PM MARKETING TEACHER) Fluid 06/18/2018 3:12 PM MARKETING TEACHER 06/18/2018 5:42 PM MARKETING TEACHER Narrative PATHOLOGY [facility] - 07/04/2018 10:29 AM MARKETING TEACHER EPIC results best viewed via link to PDF [facility] [place] [address] CYTOPATHOLOGY REPORT FINAL Patient Name: ??LA CHUNG Gender: ??F : ??1950 (Age: 67) Address: ??[address] [place] [id number] Hospital #: ??[id number] Service: ??INSURANCE VERIFICATION SPECIALIST Location: ??[facility] Patient Type: ??[facility] Ref Lab Taken: ??06/18/2018 Received: ??06/18/2018 Accessioned: [...] 66. ??This HPV test was performed at [facility] in [place], [place] utilizing the Gen-Probe Aptima assay. This specimen has been rescreened in accordance with this laboratory's [employer] Program. /07/04/2018 10:29 JAMES Thomas(ASCP) Report Electronically Reviewed and [...] tumor. The HPV test was performed by [facility], [address] [place] [address]. Report Images and scanned documents, if included only viewable in PDF version The performance characteristics of some immunohistochemical stains, in-situ hybridization and fluorescence in-situ hybridization tests and immunophenotyping by flow cytometry cited in this report (if any) were determined by the Surgical Pathology Department at [facility] as part of an ongoing quality control auditor program and in compliance with federally mandated [...] determined by the Surgical Pathology Department of [facility]. ??It has not been cleared or approved by the U. S. Food and Drug Administration. 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
--- OUTSIDE RECORDS SUMMARY | 2024-06-25 22:38 | XMS_ITS | Encounter Summary ---
Author Organization [facility] Address [address] [place] [address] Phone Care Team Providers Care Cement Mason Name Role Phone Julio César Briseno MD Primary Care Provider [phone] Reason for Visit * Reason Comments Injections * Episode Based Medications (Routine) - Authorized Specialty Diagnoses / Procedures Referred By Contac t Referred To Contact Oncology Diagnoses Neuroendocrine carcinoma (HCC) Malignant neoplasm metastatic to liver (HCC) Procedures OR OCTREOTIDE INJECTION, DEPOT Octreotide 28 Day Cycles - Carcinoid Eren Cr MD [address] [facility] [address] [place] [address] Phone: tel: fax: [facility] [address] [address] Phone: tel: fax: Referral ID Status Reason Start Date Expiration Date V isits Requested Visits Authorized [id number] Authorized 11/28/2017 02/05/2025 1 150 Encounter Details Date Type Department Care Team (Late st Contact Info) Description 07/14/2018 10:00 AM TECHNICAL APPLICATIONS SCIENTIST Infusion [facility] Oncology [address] [facility] Advanced Medicine 7th [place] [id number] 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); Neuroendocrine carcinoma (CMS/HCC) Social History Tobacco Use Types Packs/Day Years Used Date Smoking Tobacco: Never Smokeless Tobacco: Never Alcohol Use Standard Drinks/Week Comments Yes 1 (1 standard drink = 0.6 oz pur e alcohol) Comments No Sex and Gender Information Value Date Recorded Sex Assigned at Not on file Legal Sex Female 2:41 PM TECHNICAL APPLICATIONS SCIENTIST Gender Identity Not on file Sexual Orientation Straight 02/19/2021 9: 29 AM CDT Occupation Industry Job Start Date Job End Date retired Not on file Not on file Not on file documented as of this encounter Last Filed Vital Signs Vital Sign Reading Time Taken Comments Blood Pressure 130/75 07/14/2018 10:25 AM TECHNICAL APPLICATIONS SCIENTIST Pulse 79 07/14/2018 10:25 AM TECHNICAL APPLICATIONS SCIENTIST Temperature 36.6 ??C (97.9 ??F) 07/14/2018 10:[address] Respiratory Rate 18 07/14/2018 10:25 AM TECHNICAL APPLICATIONS SCIENTIST Oxygen Saturation 97% 07/14/2018 10:25 AM TECHNICAL APPLICATIONS SCIENTIST Inhaled Oxygen Concentration - - Weight 83.7 kg (184 lb 8.4 oz) 07/14/2018 10:25 AM TECHNICAL APPLICATIONS SCIENTIST Height - - Body Mass Index 33.21 01/01/2018 12:48 PM CDT documented in this encounter Nursing Notes * Misa Castellanos RN - 07/14/2018 10:00 AM CST Tolerated injection to right hip without adverse effect. Has return appointments. NICAL APPLICATIONS SCIENTIST documented in this encounter Plan of Treatment [...] 30 mg 30 mg, intramuscular, Once, On 07/14/18 at 1115, For 1 dose, Refrigerate. For IM administration only. 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),Neuroendocrine carcinoma (HCC) Given 07/14/2018 10:34 AM TECHNICAL APPLICATIONS SCIENTIST 30 mg Right Dorsogluteal/Butt ock documented in this encounter Orders Medications Ordered That Brett ht Not Have Been Administered Count Last Ordered Date First Ordered Date octreotide LAR (SandoSTATIN LAR) extended release intramuscular injection 30 mg 1 07/14/2018 Appointment Requests Count Last Ordered Date Fi rst Ordered Date ONCBCN INJECTION APPOINTMENT REQUEST 1 01/2019 documented in this encounter Care Teams Cement Mason Relationship Specialty Start Date End Date Julio César Briseno MD PCP - General 10/01/16 documented as of this encounter
--- OUTSIDE RECORDS SUMMARY | 2024-06-25 22:39 | XMS_ITS | Encounter Summary ---
Author Organization [facility] Facility Care Team Providers Care Blade Worker Name Role Phone Unavailable Primary Care Provider Unavailabl e Encounter Details Date Type Department Care Team (Latest Contact Info) Description 01/13/2016 12:54 PM CDT - 01/13/2016 11:59 PM CDT Hospital Encounter [facility] Aníbal Alfonso MD [id number] [place] [address] Other malignant neuroendocrine tumors (HCC); Ovarian cyst Social History Tobacco Use Types Packs/Day Years Used Date Smoking Tobacco: Never Assessed Comments Unknown Sex and Gender Information Value Date Recorded Sex Assigned at Not on file Legal Sex Female 2:41 PM [employer] Gender Identity Not on file Sexual Orientation Straight 02/19/2021 9: 29 AM CDT documented as of this encounter Plan of Treatment Not on file documented as of this encounter Procedures Procedure Name Priority Date/Time Associated Diagnosis Comments CT ABDOMEN PELVIS W CONTRAST Routine 01/13/2016 1:[address] CHEST W CONTRAST Routine 01/13/2016 1 :53 PM CDT documented in this encounter Results * CT Chest W Contrast (01/13/2016 1:53 PM CDT) Anatomical Region Laterality Modality Body N/A Computed Tomogra phy 01/13/2016 1:53 PM CDT Narrative 01/13/2016 6:16 PM CDT ANÍBAL KUHN M.D. ERNA SHAW M.D. FINAL REPORT The radiology attending physician has personally reviewed this study, and has reviewed and/or edited this written report and agrees with it. 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 TECHNIQUE: ??Computed tomography images of the chest, abdomen, and pelvis were obtained according to standard protocol after the uneventful intravenous administration of Optiray 350 94 mL. COMPARISON: CT chest of 08/17/2015 and MRI of abdomen and pelvis of 11/04/2015 FINDINGS: Chest: There is no pulmonary nodule or mass. There is no consolidation, pleural effusion, pneumothorax, or pulmonary edema. There are sub centimetric supraclavicular lymph nodes which have been stable. There is no mediastinal or axillary lymphadenopathy. Heart size is normal. There is no pericardial effusion. Descending aorta and main pulmonary tree are normal in caliber without aneurysmal dilation. There is no central pulmonary embolism. There is an aberrant right subclavian artery. Abdomen/pelvis: There is a hypoattenuating lesion along the posterior dome of the liver (measuring 2.4 x 1.5 cm at slice position -398), consistent with metastasis. In the coronal projection this is more suggestive of subcapsular implant rather than intrahepatic lesion. This has been unchanged from prior study. There is also unchanged nodularity suspicious for metastatic disease along the capsule of the posterior margin of the right hepatic lobe. The gallbladder is surgically absent. There is no intra or extrahepatic bile duct dilation. The spleen is enlarged, measuring 15 cm in greatest transverse dimension, unchanged, with no focal lesions. The pancreas, and adrenal glands are normal. There is a cyst in the right kidney. Left kidney is normal. Postoperative changes of right hemicolectomy and bilateral salpingo-oophorectomy are seen. The bowel is normal in course and caliber. Urinary bladder is normal. There is no free fluid or gas in abdomen or pelvis. There is no suspicious lytic or blastic osseous lesions. ?? IMPRESSION: 1. Hypoattenuating lesion along the posterior dome of the liver (measuring 2.4 x 1.5 cm at slice position -398), and nodularity along the posterior right hepatic lobe consistent with metastasis, unchanged from prior study. 2. No evidence of metastatic disease in chest ?? Requested By: Dictated By: ?? ERNA SHAW M.D. ??on Jan ??2015 ??4:18P This document has been electronically signed by: ANÍBAL KUHN M.D. on Jan ??2015 ??6:16P [id number] Procedure Note Provider, MD Levon - 11/01/2016 ANÍBAL KUHN M.D. ERNA SHAW M.D. FINAL REPORT The radiology attending physician has personally reviewed this study, and has reviewed and/or edited this written report and agrees with it. 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 TECHNIQUE: Computed tomography images of the chest, abdomen, and pelvis were obtained according to standard protocol after the uneventful intravenous administration of Optiray 350 94 mL. COMPARISON: CT chest of 08/17/2015 and MRI of abdomen and pelvis of 11/04/2015 FINDINGS: Chest: There is no pulmonary nodule or mass. There is no consolidation, pleural effusion, pneumothorax, or pulmonary edema. There are sub centimetric supraclavicular lymph nodes which have been stable. There is no mediastinal or axillary lymphadenopathy. Heart size is normal. There is no pericardial effusion. Descending aorta and main pulmonary tree are normal in caliber without aneurysmal dilation. There is no central pulmonary embolism. There is an aberrant right subclavian artery. Abdomen/pelvis: There is a hypoattenuating lesion along the posterior dome of the liver (measuring 2.4 x 1.5 cm at slice position -398), consistent with metastasis. In the coronal projection this is more suggestive of subcapsular implant rather than intrahepatic lesion. This has been unchanged from prior study. There is also unchanged nodularity suspicious for metastatic disease along the capsule of the posterior margin of the right hepatic lobe. The gallbladder is surgically absent. There is no intra or extrahepatic bile duct dilation. The spleen is enlarged, measuring 15 cm in greatest transverse dimension, unchanged, with no focal lesions. The pancreas, and adrenal glands are normal. There is a cyst in the right kidney. Left kidney is normal. Postoperative changes of right hemicolectomy and bilateral salpingo-oophorectomy are seen. The bowel is normal in course and caliber. Urinary bladder is normal. There is no free fluid or gas in abdomen or pelvis. There is no suspicious lytic or blastic osseous lesions. IMPRESSION: 1. Hypoattenuating lesion along the posterior dome of the liver (measuring 2.4 x 1.5 cm at slice position -398), and nodularity along the posterior right hepatic lobe consistent with metastasis, unchanged from prior study. 2. No evidence of metastatic disease in chest Requested By: Dictated By: ERNA SHAW M.D. on Jan 13 2016 4:18P This document has been electronically signed by: ANÍBAL KUHN M.D. on Jan 13 2016 6:16P [id number] us Historical Provider MD ALONZO CT PROCEDURES Final R esult * CT Abdomen Pelvis W Contrast (01/13/2016 1:53 PM CDT) Anatomical Region Laterality Modality Body N/A Computed Tomogra phy 01/13/2016 1:53 PM CDT Narrative 01/13/2016 6:16 PM CDT ANÍBAL KUHN M.D. ERNA SHAW M.D. FINAL REPORT The radiology attending physician has personally reviewed this study, and has reviewed and/or edited this written report and agrees with it. 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 TECHNIQUE: ??Computed tomography images of the chest, abdomen, and pelvis were obtained according to standard protocol after the uneventful intravenous administration of Optiray 350 94 mL. COMPARISON: CT chest of 08/17/2015 and MRI of abdomen and pelvis of 11/04/2015 FINDINGS: Chest: There is no pulmonary nodule or mass. There is no consolidation, pleural effusion, pneumothorax, or pulmonary edema. There are sub centimetric supraclavicular lymph nodes which have been stable. There is no mediastinal or axillary lymphadenopathy. Heart size is normal. There is no pericardial effusion. Descending aorta and main pulmonary tree are normal in caliber without aneurysmal dilation. There is no central pulmonary embolism. There is an aberrant right subclavian artery. Abdomen/pelvis: There is a hypoattenuating lesion along the posterior dome of the liver (measuring 2.4 x 1.5 cm at slice position -398), consistent with metastasis. In the coronal projection this is more suggestive of subcapsular implant rather than intrahepatic lesion. This has been unchanged from prior study. There is also unchanged nodularity suspicious for metastatic disease along the capsule of the posterior margin of the right hepatic lobe. The gallbladder is surgically absent. There is no intra or extrahepatic bile duct dilation. The spleen is enlarged, measuring 15 cm in greatest transverse dimension, unchanged, with no focal lesions. The pancreas, and adrenal glands are normal. There is a cyst in the right kidney. Left kidney is normal. Postoperative changes of right hemicolectomy and bilateral salpingo-oophorectomy are seen. The bowel is normal in course and caliber. Urinary bladder is normal. There is no free fluid or gas in abdomen or pelvis. There is no suspicious lytic or blastic osseous lesions. ?? IMPRESSION: 1. Hypoattenuating lesion along the posterior dome of the liver (measuring 2.4 x 1.5 cm at slice position -398), and nodularity along the posterior right hepatic lobe consistent with metastasis, unchanged from prior study. 2. No evidence of metastatic disease in chest ?? Requested By: Dictated By: ?? ERNA SHAW M.D. ??on Jan ??2015 ??4:18P This document has been electronically signed by: ANÍBAL KUHN M.D. on Jan ??2015 ??6:16P [id number] Procedure Note Provider, MD Levon - 11/01/2016 ANÍBAL KUHN M.D. ERNA SHAW M.D. FINAL REPORT The radiology attending physician has personally reviewed this study, and has reviewed and/or edited this written report and agrees with it. 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 TECHNIQUE: Computed tomography images of the chest, abdomen, and pelvis were obtained according to standard protocol after the uneventful intravenous administration of Optiray 350 94 mL. COMPARISON: CT chest of 08/17/2015 and MRI of abdomen and pelvis of 11/04/2015 FINDINGS: Chest: There is no pulmonary nodule or mass. There is no consolidation, pleural effusion, pneumothorax, or pulmonary edema. There are sub centimetric supraclavicular lymph nodes which have been stable. There is no mediastinal or axillary lymphadenopathy. Heart size is normal. There is no pericardial effusion. Descending aorta and main pulmonary tree are normal in caliber without aneurysmal dilation. There is no central pulmonary embolism. There is an aberrant right subclavian artery. Abdomen/pelvis: There is a hypoattenuating lesion along the posterior dome of the liver (measuring 2.4 x 1.5 cm at slice position -398), consistent with metastasis. In the coronal projection this is more suggestive of subcapsular implant rather than intrahepatic lesion. This has been unchanged from prior study. There is also unchanged nodularity suspicious for metastatic disease along the capsule of the posterior margin of the right hepatic lobe. The gallbladder is surgically absent. There is no intra or extrahepatic bile duct dilation. The spleen is enlarged, measuring 15 cm in greatest transverse dimension, unchanged, with no focal lesions. The pancreas, and adrenal glands are normal. There is a cyst in the right kidney. Left kidney is normal. Postoperative changes of right hemicolectomy and bilateral salpingo-oophorectomy are seen. The bowel is normal in course and caliber. Urinary bladder is normal. There is no free fluid or gas in abdomen or pelvis. There is no suspicious lytic or blastic osseous lesions. IMPRESSION: 1. Hypoattenuating lesion along the posterior dome of the liver (measuring 2.4 x 1.5 cm at slice position -398), and nodularity along the posterior right hepatic lobe consistent with metastasis, unchanged from prior study. 2. No evidence of metastatic disease in chest Requested By: Dictated By: ERNA SHAW M.D. on Jan 13 2016 4:18P This document has been electronically signed by: ANÍBAL KUHN M.D. on Jan 13 2016 6:16P [id number] us Historical Provider MD ALONZO CT PROCEDURES Final R esult documented in this encounter Visit Diagnoses Diagnosis Other malignant neuroendocrine tumors (HCC) Ovarian cyst Other and unspecified ovarian cyst documented in this encounter
--- OUTSIDE RECORDS SUMMARY | 2024-06-25 22:39 | XMS_ITS | Encounter Summary ---
Author Organization [facility] Healthcare Address [address] [place] [address] Care Team Providers Care Puddler Helper Name Role Phone Julio César Briseno MD Primary Care Provider [phone] Encounter Details Date Type Department Care Team (Late st Contact Info) Description 10/08/2016 Orders Only [facility] [phone] Eren Cr MD [address] [facility] [address] [place], [place] [id number] Social History Tobacco Use Types Packs/Day Years Used Date Smoking Tobacco: Never Assessed Comments Unknown Sex and Gender Information Value Date Recorded Sex Assigned at Not on file 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 Gender Identity Not on file Sexual Orientation Straight 02/19/2021 9: 29 AM CDT documented as of this encounter Plan of Treatment Not on file documented as of this encounter Procedures Procedure Name Priority Date/Time Associated Diagnosis Comments COMPREHENSIVE METABOLIC PANEL STAT 10/08/2016 12:35 PM CDT documented in this encounter Results * (ABNORMAL) Comprehensive metabolic panel (10/08/2016 12:35 PM CDT) Sodium 140 135 - 145 mmol/L [facility] Potassium, pl 3.8 3.3 - 4.9 mmol/L [facility] CO2 27 22 - 32 mmol/L [facility] BUN 14 8 - 25 mg/dL [facility] Glucose 152 70 - 199 mg/dL [facility] Creatinine 0.75 0.60 - 1.10 mg/dL [facility] Calcium 10.5(H) 8.5 - 10.3 mg/dL [facility] Chloride 105 97 - 110 mmol/L [facility] Comment:fixed result mapping Albumin 4.3 3.5 - 5.0 g/dL [facility] AST 27 10 - 45 Units/L [facility] ALT 23 7 - 45 Units/L [facility] Alk phos 105 40 - 130 Units/L [facility] Bilirubin, total 0.7 0.1 - 1.2 mg/dL [facility] Protein, pl 7.0 6.5 - 8.5 g/dL [facility] Anion gap 8 2 - 15 mmol/L [facility] Blood specimen (specimen) 10/08/2016 12:35 PM CDT 10/08/2016 12:37 PM CDT us Eren Cr MD LAB BLOOD ORDERABLES Final Re sult [facility] Department [place] [address] documented in this encounter Visit Diagnoses Not on filedocumented in this encounter Care Teams Puddler Helper Relationship Specialty Start Date End Date Julio César Briseno MD PCP - General 10/01/16 documented as of this encounter
--- OUTSIDE RECORDS SUMMARY | 2024-06-25 22:39 | XMS_ITS | Encounter Summary ---
Author Organization [facility] Facility Care Team Providers Care Calculus Tutor Name Role Phone Unavailable Primary Care Provider Unavailabl e Encounter Details Date Type Department Care Team (Late st Contact Info) Description 01/27/2016 11:13 AM CDT - 01/27/2016 11:59 PM CDT Hospital Encounter [facility] Eren De Paz MD [id number] [place] [address] Other malignant neuroendocrine tumors (HCC) Social History Tobacco Use Types Packs/Day Years Used Date Smoking Tobacco: Never Assessed Comments Unknown Sex and Gender Information Value Date Recorded Sex Assigned at Not on file Legal Sex Female 2:41 PM PRESS HAND Gender Identity Not on file Sexual Orientation Straight 02/19/2021 9: 29 AM CDT documented as of this encounter Plan of Treatment Not on file documented as of this encounter Procedures Procedure Name Priority Date/Time Associated Diagnosis Comments BLOOD CELL COUNT Routine 09/10/2016 8:00 AM PRESS HAND SERUM CHROMOGRANIN A Routine 09/10/2016 7:55 AM PRESS HAND PLASMA COMPREHENSIVE METABOLIC PANEL Routine 09/10/2016 7:53 AM PRESS HAND PLASMA COMPREHENSIVE METABOLIC PANEL Routine 08/13/2016 7:35 AM PRESS HAND BLOOD CELL COUNT Routine 08/13/2016 7:31 AM PRESS HAND SERUM CHROMOGRANIN A Routine 08/13/2016 7:27 AM PRESS HAND SERUM CHROMOGRANIN A Routine 07/16/2016 2:49 PM PRESS HAND PLASMA COMPREHENSIVE METABOLIC PANEL Routine 07/16/2016 2:49 PM PRESS HAND BLOOD CELL COUNT Routine 07/16/2016 2:46 PM PRESS HAND SERUM CHROMOGRANIN A Routine 04/23/2016 2:57 PM CDT BLOOD CELL COUNT Routine 04/23/2016 2:56 PM CDT PLASMA COMPREHENSIVE METABOLIC PANEL Routine 04/23/2016 2:37 PM CDT SERUM 25-HYDROXYCHOLECALCIFE ROL (VITAMIN D) Routine 04/23/2016 12:00 PM CDT SERUM CHROMOGRANIN A Routine 01/30/2016 12:40 PM CDT PLASMA COMPREHENSIVE METABOLIC PANEL Routine 01/30/2016 12:11 PM CDT BLOOD CELL COUNT Routine 01/30/2016 12:1 0 PM CDT DISCHARGE LABORATORY CUMULATIVE REPORT 01/27/2016 documented in this encounter Results * (ABNORMAL) Blood cell count [CBC] panel, 7 CAM (09/10/2016 8:00 AM PRESS HAND) WBC 7.0 3.8 - 9.8 K/cumm CDR HISTORICAL RESULTS RBC 5.03(H) 3.90 - 5.00 M/cumm CDR HISTORICAL RESULTS Hgb 14.2 12.1 - 15.1 g/dl CDR HISTORICAL RESULTS Hct 42.8 36.1 - 44.3 % CDR HISTORICAL RESULTS MCV 85.1 80.0 - 97.6 fl CDR HISTORICAL RESULTS MCH 28.2 26.7 - 33.7 pg CDR HISTORICAL RESULTS MCHC 33.2 32.7 - 35.5 g/dl CDR HISTORICAL RESULTS Rdw 13.4 11.8 - 14.6 % CDR HISTORICAL RESULTS Platelets 134(L) 140 - 440 K/cumm CDR HISTORICAL RESULTS MPV 8.4 6.8 - 10.4 fl CDR HISTORICAL RESULTS Neutrophils 46.9 38.7 - 74.5 % CDR HISTORICAL RESULTS Lymphocytes 42.9 20.0 - 54.3 % CDR HISTORICAL RESULTS Monos 7.1 4.3 - 13.5 % CDR HISTORICAL RESULTS Eosinophils 1.7 0.0 - 6.0 % CDR HISTORICAL RESULTS Basophils 1.4 0.0 - 3.0 % CDR HISTORICAL RESULTS Neutrophils, abs 3.3 1.8 - 6.6 K/cumm CDR HISTORICAL RESULTS Lymphocytes, abs 3.0 1.2 - 3.3 K/cumm CDR HISTORICAL RESULTS Monocytes, absolute 0.5 0.2 - 1.2 K/cumm CDR HISTORICAL RESULTS Eosinophils, abs 0.1 0.0 - 0.5 K/cumm CDR HISTORICAL RESULTS Basophils, abs 0.1 0.0 - 0.2 K/cumm CDR HISTORICAL RESULTS Blood specimen (specimen) 09/10/2016 8:00 AM PRESS HAND Eren Cr MD LAB BLOOD ORDERABLES Final Re sult CDR HISTORICAL RESULTS * Serum chromogranin A (09/10/2016 7:55 AM PRESS HAND) Chromogranin A 52 <93 ng/ml CDR H ISTORICAL RESULTS Comment: ADDITIONAL INFORMATION The testing method is a homogeneous time-resolved immunofluorescent assay. Analyte Specific Reagent: This test was developed and its performance characteristics determined by [facility]. It has not been cleared or approved by the U.S. Food and Drug Administration. ? Values obtained with different assay methods or kits may be different and cannot be used interchangeably. ? Test results cannot be interpreted as absolute evidence for the presence or absence of malignant disease. Test Performed by: [address] [id number] Serum 09/10/2016 7:55 AM PRESS HAND Eren Cr MD LAB BLOOD ORDERABLES Final Re [facility] Performing Organization Address [facility]/ZIP Co de Phone Number CDR HISTORICAL RESULTS * (ABNORMAL) Plasma comprehensive metabolic panel (09/10/2016 7:53 AM PRESS HAND) Sodium 140 135 - 145 mmol/L CDR HISTORICAL RESULTS K, pl 4.2 3.3 - 4.9 mmol/L CDR HISTORICAL RESULTS CO2 30 22 - 32 mmol/L CDR HISTORICAL RESULTS BUN 15 8 - 25 mg/dl CDR HISTORICAL RESULTS Glucose 110 70 - 199 mg/dl CDR HISTORICAL RESULTS Creatinine 0.67 0.60 - 1.10 mg/dl CDR HISTORICAL RESULTS Calcium 10.4(H) 8.5 - 10.3 mg/dl CDR HISTORICAL RESULTS Chloride 105 97 - 110 mmol/L CDR HISTORICAL RESULTS Alb 4.2 3.5 - 5.0 g/dl CDR HISTORICAL RESULTS AST 25 10 - 45 Units/L CDR HISTORICAL RESULTS ALT 20 7 - 45 Units/L CDR HISTORICAL RESULTS Alk phos 102 40 - 130 Units/L CDR HISTORICAL RESULTS Bilirubin 0.4 0.1 - 1.2 mg/dl CDR HISTORICAL RESULTS Protein, pl 6.8 6.5 - 8.5 g/dl CDR HISTORICAL RESULTS A. gap 5 2 - 15 mmol/L CDR HISTORICAL RESULTS Plasma 09/10/2016 7:53 AM PRESS HAND Eren Cr MD LAB BLOOD ORDERABLES Final Re sult CDR HISTORICAL RESULTS * Plasma comprehensive metabolic panel (08/13/2016 7:35 AM PRESS HAND) Sodium 139 135 - 145 mmol/L CDR HISTORICAL RESULTS K, pl 4.5 3.3 - 4.9 mmol/L CDR HISTORICAL RESULTS CO2 30 22 - 32 mmol/L CDR HISTORICAL RESULTS BUN 15 8 - 25 mg/dl CDR HISTORICAL RESULTS Glucose 103 70 - 199 mg/dl CDR HISTORICAL RESULTS Creatinine 0.76 0.60 - 1.10 mg/dl CDR HISTORICAL RESULTS Calcium 10.3 8.5 - 10.3 mg/dl CDR HISTORICAL RESULTS Chloride 103 97 - 110 mmol/L CDR HISTORICAL RESULTS Alb 4.3 3.5 - 5.0 g/dl CDR HISTORICAL RESULTS AST 27 10 - 45 Units/L CDR HISTORICAL RESULTS ALT 25 7 - 45 Units/L CDR HISTORICAL RESULTS Alk phos 104 40 - 130 Units/L CDR HISTORICAL RESULTS Bilirubin 0.6 0.1 - 1.2 mg/dl CDR HISTORICAL RESULTS Protein, pl 7.1 6.5 - 8.5 g/dl CDR HISTORICAL RESULTS A. gap 6 2 - 15 mmol/L CDR HISTORICAL RESULTS Plasma 08/13/2016 7:35 AM PRESS HAND Eren Cr MD LAB BLOOD ORDERABLES Final Re sult CDR HISTORICAL RESULTS * (ABNORMAL) Blood cell count [CBC] panel, 7 CAM (08/13/2016 7:31 AM PRESS HAND) WBC 7.6 3.8 - 9.8 K/cumm CDR HISTORICAL RESULTS RBC 5.06(H) 3.90 - 5.00 M/cumm CDR HISTORICAL RESULTS Hgb 14.6 12.1 - 15.1 g/dl CDR HISTORICAL RESULTS Hct 42.9 36.1 - 44.3 % CDR HISTORICAL RESULTS MCV 84.7 80.0 - 97.6 fl CDR HISTORICAL RESULTS MCH 28.8 26.7 - 33.7 pg CDR HISTORICAL RESULTS MCHC 34.0 32.7 - 35.5 g/dl CDR HISTORICAL RESULTS Rdw 13.7 11.8 - 14.6 % CDR HISTORICAL RESULTS Platelets 141 140 - 440 K/cumm CDR HISTORICAL RESULTS MPV 8.0 6.8 - 10.4 fl CDR HISTORICAL RESULTS Neutrophils 51.9 38.7 - 74.5 % CDR HISTORICAL RESULTS Lymphocytes 37.6 20.0 - 54.3 % CDR HISTORICAL RESULTS Monos 7.9 4.3 - 13.5 % CDR HISTORICAL RESULTS Eosinophils 1.9 0.0 - 6.0 % CDR HISTORICAL RESULTS Basophils 0.7 0.0 - 3.0 % CDR HISTORICAL RESULTS Neutrophils, abs 3.9 1.8 - 6.6 K/cumm CDR HISTORICAL RESULTS Lymphocytes, abs 2.8 1.2 - 3.3 K/cumm CDR HISTORICAL RESULTS Monocytes, absolute 0.6 0.2 - 1.2 K/cumm CDR HISTORICAL RESULTS Eosinophils, abs 0.1 0.0 - 0.5 K/cumm CDR HISTORICAL RESULTS Basophils, abs 0.0 0.0 - 0.2 K/cumm CDR HISTORICAL RESULTS Blood specimen (specimen) 08/13/2016 7:31 AM PRESS HAND Eren Cr MD LAB BLOOD ORDERABLES Final Re sult Performing Organization Address [facility] de Phone Number CDR HISTORICAL RESULTS * Serum chromogranin A (08/13/2016 7:27 AM PRESS HAND) Pathologist [facility] Chromogranin A 54 <93 ng/ml CDR H ISTORICAL RESULTS Comment: ADDITIONAL INFORMATION The testing method is a homogeneous time-resolved immunofluorescent assay. Analyte Specific Reagent: This test was developed and its performance characteristics determined by [facility]. It has not been cleared or approved by the U.S. Food and Drug Administration. ? Values obtained with different assay methods or kits may be different and cannot be used interchangeably. ? Test results cannot be interpreted as absolute evidence for the presence or absence of malignant disease. Test Performed by: [facility] [place] [address] Custodial Maintenance Worker: Immanuel Novak II, M.D., Ph.D. Serum 08/13/2016 7:27 AM PRESS HAND Eren Cr MD LAB BLOOD ORDERABLES Final Re sult Performing Organization Address [facility] de Phone Number CDR HISTORICAL RESULTS * (ABNORMAL) Plasma comprehensive metabolic panel (07/16/2016 2:49 PM PRESS HAND) Pathologist [facility] Sodium 139 135 - 145 mmol/L CDR HISTORICAL RESULTS K, pl 4.3 3.3 - 4.9 mmol/L CDR HISTORICAL RESULTS CO2 29 22 - 32 mmol/L CDR HISTORICAL RESULTS BUN 14 8 - 25 mg/dl CDR HISTORICAL RESULTS Glucose 106 70 - 199 mg/dl CDR HISTORICAL RESULTS Creatinine 0.80 0.60 - 1.10 mg/dl CDR HISTORICAL RESULTS Calcium 10.7(H) 8.5 - 10.3 mg/dl CDR HISTORICAL RESULTS Chloride 103 97 - 110 mmol/L CDR HISTORICAL RESULTS Alb 4.2 3.5 - 5.0 g/dl CDR HISTORICAL RESULTS AST 34 10 - 45 Units/L CDR HISTORICAL RESULTS ALT 33 7 - 45 Units/L CDR HISTORICAL RESULTS Alk phos 110 40 - 130 Units/L CDR HISTORICAL RESULTS Bilirubin 0.6 0.1 - 1.2 mg/dl CDR HISTORICAL RESULTS Protein, pl 7.2 6.5 - 8.5 g/dl CDR HISTORICAL RESULTS A. gap 7 2 - 15 mmol/L CDR HISTORICAL RESULTS Plasma 07/16/2016 2:49 PM PRESS HAND Eren Cr MD LAB BLOOD ORDERABLES Final Re sult Performing Organization Address [facility]/State/ZIP Co de Phone Number CDR HISTORICAL RESULTS * Serum chromogranin A (07/16/2016 2:49 PM PRESS HAND) Chromogranin A 76 <93 ng/ml CDR H ISTORICAL RESULTS Comment: ADDITIONAL INFORMATION The testing method is a homogeneous time-resolved immunofluorescent assay. Analyte Specific Reagent: This test was developed and its performance characteristics determined by [facility]. It has not been cleared or approved by the U.S. Food and Drug Administration. ? Values obtained with different assay methods or kits may be different and cannot be used interchangeably. ? Test results cannot be interpreted as absolute evidence for the presence or absence of malignant disease. Test Performed by: [address] [address] Custodial Maintenance Worker: Immanuel Novak II, M.D., Ph.D. Serum 07/16/2016 2:49 PM PRESS HAND Eren Cr MD LAB BLOOD ORDERABLES Final Re sult Performing Organization Address [facility]/ZIP Co de Phone Number CDR HISTORICAL RESULTS * (ABNORMAL) Blood cell count [CBC] panel, 7 CAM (07/16/2016 2:46 PM PRESS HAND) Pathologist [facility] WBC 9.3 3.8 - 9.8 K/cumm CDR HISTORICAL RESULTS RBC 5.32(H) 3.90 - 5.00 M/cumm CDR HISTORICAL RESULTS Hgb 15.1 12.1 - 15.1 g/dl CDR HISTORICAL RESULTS Hct 45.0(H) 36.1 - 44.3 % CDR HISTORICAL RESULTS MCV 84.7 80.0 - 97.6 fl CDR HISTORICAL RESULTS MCH 28.4 26.7 - 33.7 pg CDR HISTORICAL RESULTS MCHC 33.6 32.7 - 35.5 g/dl CDR HISTORICAL RESULTS Rdw 13.6 11.8 - 14.6 % CDR HISTORICAL RESULTS Platelets 169 140 - 440 K/cumm CDR HISTORICAL RESULTS MPV 8.4 6.8 - 10.4 fl CDR HISTORICAL RESULTS Neutrophils 55.2 38.7 - 74.5 % CDR HISTORICAL RESULTS Lymphocytes 36.8 20.0 - 54.3 % CDR HISTORICAL RESULTS Monos 6.5 4.3 - 13.5 % CDR HISTORICAL RESULTS Eosinophils 1.3 0.0 - 6.0 % CDR HISTORICAL RESULTS Basophils 0.2 0.0 - 3.0 % CDR HISTORICAL RESULTS Neutrophils, abs 5.2 1.8 - 6.6 K/cumm CDR HISTORICAL RESULTS Lymphocytes, abs 3.4(H) 1.2 - 3.3 K/cumm CDR HISTORICAL RESULTS Monocytes, absolute 0.6 0.2 - 1.2 K/cumm CDR HISTORICAL RESULTS Eosinophils, abs 0.1 0.0 - 0.5 K/cumm CDR HISTORICAL RESULTS Basophils, abs 0.0 0.0 - 0.2 K/cumm CDR HISTORICAL RESULTS Blood specimen (specimen) 07/16/2016 2:46 PM PRESS HAND Eren Cr MD LAB BLOOD ORDERABLES Final Re sult CDR HISTORICAL RESULTS * Serum chromogranin A (04/23/2016 2:57 PM CDT) Chromogranin A 54 <93 ng/ml CDR H ISTORICAL RESULTS Comment: ADDITIONAL INFORMATION The testing method is a homogeneous time-resolved immunofluorescent assay. Analyte Specific Reagent: This test was developed and its performance characteristics determined by [facility]. It has not been cleared or approved by the U.S. Food and Drug Administration. ? Values obtained with different assay methods or kits may be different and cannot be used interchangeably. ? Test results cannot be interpreted as absolute evidence for the presence or absence of malignant disease. Test Performed by: [place] [address] Custodial Maintenance Worker: Immanuel Novak II, M.D., Ph.D. Serum 04/23/2016 2:57 PM CDT Eren Cr MD LAB BLOOD ORDERABLES Final Re sult CDR HISTORICAL RESULTS * (ABNORMAL) Blood cell count [CBC] panel, 7 CAM (04/23/2016 2:56 PM CDT) Pathologist [facility] WBC 8.1 3.8 - 9.8 K/cumm CDR HISTORICAL RESULTS RBC 5.05(H) 3.90 - 5.00 M/cumm CDR HISTORICAL RESULTS Hgb 14.1 12.1 - 15.1 g/dl CDR HISTORICAL RESULTS Hct 42.8 36.1 - 44.3 % CDR HISTORICAL RESULTS MCV 84.7 80.0 - 97.6 fl CDR HISTORICAL RESULTS MCH 27.8 26.7 - 33.7 pg CDR HISTORICAL RESULTS MCHC 32.9 32.7 - 35.5 g/dl CDR HISTORICAL RESULTS Rdw 14.6 11.8 - 14.6 % CDR HISTORICAL RESULTS Platelets 165 140 - 440 K/cumm CDR HISTORICAL RESULTS MPV 8.1 6.8 - 10.4 fl CDR HISTORICAL RESULTS Neutrophils 56.2 38.7 - 74.5 % CDR HISTORICAL RESULTS Lymphocytes 35.5 20.0 - 54.3 % CDR HISTORICAL RESULTS Monos 6.6 4.3 - 13.5 % CDR HISTORICAL RESULTS Eosinophils 1.6 0.0 - 6.0 % CDR HISTORICAL RESULTS Basophils 0.1 0.0 - 3.0 % CDR HISTORICAL RESULTS Neutrophils, abs 4.5 1.8 - 6.6 K/cumm CDR HISTORICAL RESULTS Lymphocytes, abs 2.9 1.2 - 3.3 K/cumm CDR HISTORICAL RESULTS Monocytes, absolute 0.5 0.2 - 1.2 K/cumm CDR HISTORICAL RESULTS Eosinophils, abs 0.1 0.0 - 0.5 K/cumm CDR HISTORICAL RESULTS Basophils, abs 0.0 0.0 - 0.2 K/cumm CDR HISTORICAL RESULTS Blood specimen (specimen) 04/23/2016 2:56 PM CDT Eren Cr MD LAB BLOOD ORDERABLES Final Re sult Performing Organization Address [facility] Co de Phone Number CDR HISTORICAL RESULTS * (ABNORMAL) Plasma comprehensive metabolic panel (04/23/2016 2:37 PM CDT) Sodium 142 135 - 145 mmol/L CDR HISTORICAL RESULTS K, pl 3.5 3.3 - 4.9 mmol/L CDR HISTORICAL RESULTS Chloride 105 97 - 110 mmol/L CDR HISTORICAL RESULTS CO2 27 22 - 32 mmol/L CDR HISTORICAL RESULTS A. gap 10 2 - 15 mmol/L CDR HISTORICAL RESULTS Glucose 137 70 - 199 mg/dl CDR HISTORICAL RESULTS BUN 14 8 - 25 mg/dl CDR HISTORICAL RESULTS Creatinine 0.83 0.60 - 1.10 mg/dl CDR HISTORICAL RESULTS Calcium 10.6(H) 8.5 - 10.3 mg/dl CDR HISTORICAL RESULTS Protein, pl 6.9 6.5 - 8.5 g/dl CDR HISTORICAL RESULTS Alb 4.4 3.5 - 5.0 g/dl CDR HISTORICAL RESULTS Bilirubin 0.5 0.1 - 1.2 mg/dl CDR HISTORICAL RESULTS Alk phos 107 40 - 130 Units/L CDR HISTORICAL RESULTS AST 31 10 - 45 Units/L CDR HISTORICAL RESULTS ALT 24 7 - 45 Units/L CDR HISTORICAL RESULTS Plasma 04/23/2016 2:37 PM CDT Eren Cr MD LAB BLOOD ORDERABLES Final Re sult Performing Organization Address [facility] de Phone Number CDR HISTORICAL RESULTS * Serum 25-hydroxycholecalciferol (vitamin D) (04/23/2016 12:00 PM CDT) Pathologist [facility] 25-OH Vit D 33 30 - 100 ng/ml CDR HISTORICAL RESULTS Serum 04/23/2016 12:0 0 PM CDT Eren Cr MD LAB BLOOD ORDERABLES Final Re sult Performing Organization Address [facility] de Phone Number CDR HISTORICAL RESULTS * Serum chromogranin A (01/30/2016 12:40 PM CDT) Pathologist [facility] Chromogranin A 51 <93 ng/ml CDR H ISTORICAL RESULTS Comment: ADDITIONAL INFORMATION The testing method is a homogeneous time-resolved immunofluorescent assay. Analyte Specific Reagent: This test was developed and its performance characteristics determined by [facility]. It has not been cleared or approved by the U.S. Food and Drug Administration. ? Values obtained with different assay methods or kits may be different and cannot be used interchangeably. ? Test results cannot be interpreted as absolute evidence for the presence or absence of malignant disease. Test Performed by: [facility] [place] [address] Custodial Maintenance Worker: Immanuel Novak II, M.D., Ph.D. Serum 01/30/2016 12:4 0 PM CDT Eren Cr MD LAB BLOOD ORDERABLES Final Re sult Performing Organization Address [facility] de Phone Number CDR HISTORICAL RESULTS * (ABNORMAL) Plasma comprehensive metabolic panel (01/30/2016 12:11 PM CDT) Pathologist [facility] Sodium 138 135 - 145 mmol/L CDR HISTORICAL RESULTS K, pl 4.3 3.3 - 4.9 mmol/L CDR HISTORICAL RESULTS Chloride 102 97 - 110 mmol/L CDR HISTORICAL RESULTS CO2 28 22 - 32 mmol/L CDR HISTORICAL RESULTS A. gap 8 2 - 15 mmol/L CDR HISTORICAL RESULTS Glucose 156 70 - 199 mg/dl CDR HISTORICAL RESULTS BUN 16 8 - 25 mg/dl CDR HISTORICAL RESULTS Creatinine 0.74 0.60 - 1.10 mg/dl CDR HISTORICAL RESULTS Calcium 10.5(H) 8.5 - 10.3 mg/dl CDR HISTORICAL RESULTS Protein, pl 7.1 6.5 - 8.5 g/dl CDR HISTORICAL RESULTS Alb 4.3 3.5 - 5.0 g/dl CDR HISTORICAL RESULTS Bilirubin 0.6 0.1 - 1.2 mg/dl CDR HISTORICAL RESULTS Alk phos 115 40 - 130 Units/L CDR HISTORICAL RESULTS AST 27 10 - 45 Units/L CDR HISTORICAL RESULTS ALT 25 7 - 45 Units/L CDR HISTORICAL RESULTS Plasma 01/30/2016 12:1 1 PM CDT Eren Cr MD LAB BLOOD ORDERABLES Final Re sult CDR HISTORICAL RESULTS * (ABNORMAL) Blood cell count [CBC] panel, 7 CAM (01/30/2016 12:10 PM CDT) WBC 7.8 3.8 - 9.8 K/cumm CDR HISTORICAL RESULTS Monos 6.8 4.3 - 13.5 % CDR HISTORICAL RESULTS RBC 5.40(H) 3.90 - 5.00 M/cumm CDR HISTORICAL RESULTS Eosinophils 1.9 0.0 - 6.0 % CDR HISTORICAL RESULTS Hgb 14.3 12.1 - 15.1 g/dl CDR HISTORICAL RESULTS Basophils 0.4 0.0 - 3.0 % CDR HISTORICAL RESULTS Hct 43.6 36.1 - 44.3 % CDR HISTORICAL RESULTS Neutrophils, abs 4.0 1.8 - 6.6 K/cumm CDR HISTORICAL RESULTS MCV 80.8 80.0 - 97.6 fl CDR HISTORICAL RESULTS Lymphocytes, abs 3.1 1.2 - 3.3 K/cumm CDR HISTORICAL RESULTS MCH 26.4(L) 26.7 - 33.7 pg CDR HISTORICAL RESULTS Monocytes, absolute 0.5 0.2 - 1.2 K/cumm CDR HISTORICAL RESULTS MCHC 32.7 32.7 - 35.5 g/dl CDR HISTORICAL RESULTS Eosinophils, abs 0.1 0.0 - 0.5 K/cumm CDR HISTORICAL RESULTS Rdw 14.7(H) 11.8 - 14.6 % CDR HISTORICAL RESULTS Basophils, abs 0.0 0.0 - 0.2 K/cumm CDR HISTORICAL RESULTS Platelets 159 140 - 440 K/cumm CDR HISTORICAL RESULTS MPV 8.2 6.8 - 10.4 fl CDR HISTORICAL RESULTS Neutrophils 50.7 38.7 - 74.5 % CDR HISTORICAL RESULTS Lymphocytes 40.2 20.0 - 54.3 % CDR HISTORICAL RESULTS Blood specimen (specimen) 01/30/2016 12:10 PM CDT Eren Cr MD LAB BLOOD ORDERABLES Final Re sult CDR HISTORICAL RESULTS * DISCHARGE LABORATORY CUMULATIVE REPORT (01/27/2016) Narrative 01/27/2016 Ordered by an unspecified provider. Historical Provider LAB BLOOD ORDERABLES Mel l Result documented in this encounter Visit Diagnoses Diagnosis Other malignant neuroendocrine tumors (HCC) documented in this encounter
--- OUTSIDE RECORDS SUMMARY | 2024-06-25 22:39 | XMS_ITS | Encounter Summary ---
Author Organization [facility] Facility Care Team Providers Care Tube Coater Name Role Phone Unavailable Primary Care Provider Unavailabl e Encounter Details Date Type Department Care Team (Latest Contact Info) Description 09/01/2015 9:48 AM SET ILLUSTRATOR - 09/01/2015 4:00 PM SET ILLUSTRATOR Hospital Encounter [facility] Jasbir Alfonso MD [phone] [place] [phone] Encounter for preprocedural laboratory examination; Intra-abdominal and pelvic swelling, mass and lump, unspecified site; Essential (primary) hypertension; Obesity; Body mass index (BMI) of 32.0-32.9 in adult; Gastro-esophageal reflux disease without esophagitis; Hyperlipidemia; Allergic rhinitis; Low back pain; Anxiety disorder; Hearing loss; Hemorrhoids; Diarrhea Social History Tobacco Use Types Packs/Day Years Used Date Smoking Tobacco: Never Assessed Comments Unknown Sex and Gender Information Value Date Recorded Sex Assigned at Not on file Legal Sex Female 2:41 PM SET ILLUSTRATOR Gender Identity Not on file Sexual Orientation Straight 02/19/2021 9: 29 AM CDT documented as of this encounter Plan of Treatment Not on file documented as of this encounter Procedures Procedure Name Priority Date/Time Associated Diagnosis Comments PLASMA COMPREHENSIVE METABOLIC PANEL Routine 09/01/2015 11:32 AM SET ILLUSTRATOR BLOOD CELL COUNT Routine 09/01/2015 11:3 2 AM SET ILLUSTRATOR BLOOD ABO, RH, INDIRECT AB SCREEN Routine 09/01/2015 11:32 AM SET ILLUSTRATOR DISCHARGE LABORATORY CUMULATIVE REPORT 09/01/2015 documented in this encounter Results * (ABNORMAL) Plasma comprehensive metabolic panel (09/01/2015 11:32 AM SET ILLUSTRATOR) Sodium 140 135 - 145 mmol/L HISTORICAL RESULTS K, pl 4.5 3.3 - 4.9 mmol/L HISTORICAL RESULTS Chloride 105 97 - 110 mmol/L HISTORICAL RESULTS CO2 28 22 - 32 mmol/L HISTORICAL RESULTS A. gap 7 0 - 16 mmol/L HISTORICAL RESULTS Glucose 81 70 - 199 mg/dl HISTORICAL RESULTS BUN 15 8 - 25 mg/dl HISTORICAL RESULTS Creatinine 0.68 0.60 - 1.10 mg/dl HISTORICAL RESULTS Calcium 10.9(H) 8.6 - 10.3 mg/dl HISTORICAL RESULTS Protein, pl 7.2 6.5 - 8.5 g/dl HISTORICAL RESULTS Alb 4.3 3.6 - 5.0 g/dl HISTORICAL RESULTS Bilirubin 0.4 0.3 - 1.1 mg/dl HISTORICAL RESULTS Alk phos 88 38 - 126 Units/L HISTORICAL RESULTS AST 25 11 - 47 Units/L HISTORICAL RESULTS ALT 23 7 - 53 Units/L HISTORICAL RESULTS Plasma 09/01/2015 11:3 2 AM SET ILLUSTRATOR Babs Dominguez DESIGN LEAD LAB BLOOD ORDERABLES Mel l Result Performing Organization Address City/[facility] Co de Phone Number HISTORICAL RESULTS * Blood ABO, Rh, indirect ab screen (09/01/2015 11:32 AM SET ILLUSTRATOR) Yolande, indirect Negative HISTORICAL RESULTS ABO, Rho(D) AB Positive HISTOR ICAL RESULTS Blood specimen (specimen) 09/01/2015 11:32 AM SET ILLUSTRATOR Babs Dominguez DESIGN LEAD LAB BLOOD ORDERABLES Mel l Result Performing Organization Address [facility]/ZIP Co de Phone Number HISTORICAL RESULTS * (ABNORMAL) Blood cell count [CBC] express (09/01/2015 11:32 AM SET ILLUSTRATOR) WBC 7.9 3.8 - 9.8 K/cumm HISTORICAL RESULTS RBC 5.56(H) 3.90 - 5.00 M/cumm HISTORICAL RESULTS Hgb 15.8(H) 12.1 - 15.1 g/dl HISTORICAL RESULTS Hct 46.9(H) 36.1 - 44.3 % HISTORICAL RESULTS MCV 84.3 80.0 - 97.6 fl HISTORICAL RESULTS MCH 28.4 26.7 - 33.7 pg HISTORICAL RESULTS MCHC 33.7 32.7 - 35.5 g/dl HISTORICAL RESULTS Rdw 13.4 11.8 - 14.6 % HISTORICAL RESULTS Platelets 151 140 - 440 K/cumm HISTORICAL RESULTS MPV 10.2 6.8 - 10.4 fl HISTORICAL RESULTS Blood specimen (specimen) 09/01/2015 11:32 AM SET ILLUSTRATOR Babs Dominguez NP LAB BLOOD ORDERABLES Mel l Result HISTORICAL RESULTS * DISCHARGE LABORATORY CUMULATIVE REPORT (09/01/2015) Narrative 09/01/2015 Ordered by an unspecified provider. Historical Provider LAB BLOOD ORDERABLES Mle l Result documented in this encounter Visit Diagnoses Diagnosis Encounter for preprocedural laboratory examination Intra-abdominal and pelvic swelling, mass and lump, unspecified site Essential (primary) hypertension Unspecified essential hypertension Obesity Obesity, unspecified Body mass index (BMI) of 32.0-32.9 in adult Gastro-esophageal reflux disease without esophagitis Hyperlipidemia Other and unspecified hyperlipidemia Allergic rhinitis Allergic rhinitis, cause unspecified Low back pain Lumbago Anxiety disorder Anxiety state, unspecified Hearing loss Unspecified hearing loss Hemorrhoids Diarrhea documented in this encounter
--- OUTSIDE RECORDS SUMMARY | 2024-06-25 22:39 | XMS_ITS | Encounter Summary ---
Author Organization [facility] Address [address] [place] [address] Care Team Providers Care Real Estate Manager Name Role Phone Julio César Briseno MD Primary Care Provider Encounter Details Date Type Department Care Team (Latest Contact Info) Description 10/01/2016 1:38 PM CDT - 10/01/2016 11:59 PM CDT Hospital Encounter [facility] [phone] Eren Cr MD [address] [place], [place] [id number] Discharge Disposition: Discharge to home or self care Social History Tobacco Use Types Packs/Day Years Used Date Smoking Tobacco: Never Assessed Comments Unknown Sex and Gender Information Value Date Recorded Sex Assigned at Not on file 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 Gender Identity Not on file Sexual Orientation Straight 02/19/2021 9: 29 AM CDT documented as of this encounter Medications at Time of Discharge ascorbic acid, vitamin C, 500 mg capsuleIndicatio ns:supplement Take 1 tablet by mouth teacher tutor before breakfast 07/04/2016 4 octreotide (SandoSTATIN) 50 mcg/mL (1 mL) syringe every 30 (thirty) days 04/09/2016 2 documented as of this encounter Discharge Disposition Disposition Code Departure Means Destination Discharge to home or self care documented in this encounter Plan of Treatment Not on file documented as of this encounter Procedures Procedure Name Priority Date/Time Associated Diagnosis Comments CT ABDOMEN PELVIS W CONTRAST Routine 10/01/2016 7:[address] CHEST W CONTRAST Routine 10/01/2016 7 :15 PM CDT documented in this encounter Results * CT Abdomen Pelvis W Contrast (10/01/2016 7:15 PM CDT) Anatomical Region Laterality Modality Body N/A Computed Tomogra phy 10/01/2016 7:15 PM CDT Narrative 10/01/2016 7:15 PM CDT KAYLIN RAYMOND M.D. FINAL REPORT ACC# ??Date Time ??Exam [id number] Oct 01, 2016 14:15:[id number] Chest with contrast [id number] Oct 01, 2016 14:15:[id number] Abd ??and ??Pelvis with cont EXAMINATION: ?? 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 TECHNIQUE: Computed tomography of the chest, abdomen, and pelvis was performed following the uneventful administration of 94 mL Optiray-350 intravenous contrast according to standard protocol. COMPARISON: CT from 04/18/2016 FINDINGS: CHEST Visualized portions of the thyroid are normal. No lymphadenopathy is identified in the chest. The heart size is normal. There is no pericardial effusion. The great vessels are normal in size. There is no pulmonary embolism. Mild atherosclerotic calcification of the aorta. The lungs are clear of consolidation, effusion, or pneumothorax. Redemonstration of juxta fissural pulmonary nodule along the right major fissure measuring 5 mm (-102.5). D 4 mm pulmonary nodule in the right lower lobe is also unchanged (minus at 160.5). Triangular groundglass 4 mm pulmonary nodule in the left upper lobe (-34.5) is also unchanged. No new suspicious pulmonary nodules demonstrated. Central airways are patent. ABDOMEN ??and ??PELVIS Again seen along the dome of the liver is a hypoattenuating lesion involving segments 7 difficult to accurately measure given location a with approximate dimensions of who 3.4 x 1.2 cm (minus 144.5), possibly slightly increased compared to prior imaging. Additional subserosal implants along the inferior margin of the liver in the region of segment 6 are redemonstrated with small nodule measuring 0.8 x 0.8 cm similar in size to prior imaging No new lesions demonstrated. No biliary ductal dilation demonstrated. Cholecystectomy clips seen in the gallbladder fossa in keeping with prior removal. The spleen is enlarged. The pancreas is normal in appearance. No ductal dilation demonstrated. Normal appearance of the adrenal glands. Normal enhancement of the kidneys. Stable exophytic cyst in the right kidney. No hydronephrosis. The bladder is predominantly decompressed. The uterus is surgically absent. There is an enhancing soft tissue nodule along the vaginal cuff which measures 1.5 x 1.5 cm (-492.5) , slightly increased in size and more prominent in appearance on today's imaging than on prior imaging at which time it measured 1.3 x 0.8 cm. This concerning for worsening site of metastatic disease. A smaller seen the nodule seen along the left vaginal cuff appear similar to prior imaging. No adnexal masses demonstrated. The small and large bowel are normal in caliber without obstruction. There is diverticulosis without evidence of acute diverticulitis. Diffuse thickening of the rectosigmoid colon in region of diverticular disease is likely related to extensive diverticulosis in this region. Minimal fat stranding in this region suggestive of possible mild or subacute diverticulitis, unchanged. Postsurgical changes from prior right hemicolectomy no evidence of anastomotic complication. 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 There is a small fat containing ventral hernia demonstrated. No free intraperitoneal air or free fluid is identified. Previously noted small omental nodules and nodules along the rectosigmoid colon in are unchanged compared to prior imaging. For example the previously noted represent nodule measures 7 x 6 mm (-382.5) Although there is no lymphadenopathy by size criteria there are multiple prominent, mildly enhancing pelvic sidewall, iliac and retroperitoneal lymph nodes which are similar to prior imaging. The abdominal aorta is normal in course and caliber. Bone windows demonstrate no suspicious osseous lesions. Degenerative change to the spine. IMPRESSION: ?? 1. Possible slight increase in serosal soft tissue deposit along the dome of the liver; additional serosal deposits along the liver surface appear unchanged. 2. Slight interval increase of soft tissue nodule in the right vaginal cuff. Nodular deposit along the left vaginal cuff is similar. 3. Additional soft tissue deposits in the omentum and along the sigmoid mesocolon or not substantially changed remain suspicious for metastatic disease. 4. Stable appearance of small pulmonary nodules which remain indeterminate. Requested By: Eren Cr ??M.D. ? Dictated By: ?? KAYLIN RAYMOND M.D. ??on Oct 01 2016 ??2:41P This document has been electronically signed by: KAYLIN RAYMOND M.D. on Oct 01 2016 ??2:41P [id number] Procedure Note Miscellaneous, Notinfile - 11/28/2016 KAYLIN RAYMOND M.D. 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 TECHNIQUE: Computed tomography of the chest, abdomen, and pelvis was performed following the uneventful administration of 94 mL Optiray-350 intravenous contrast according to standard protocol. COMPARISON: CT from 04/18/2016 FINDINGS: CHEST Visualized portions of the thyroid are normal. No lymphadenopathy is identified in the chest. The heart size is normal. There is no pericardial effusion. The great vessels are normal in size. There is no pulmonary embolism. Mild atherosclerotic calcification of the aorta. The lungs are clear of consolidation, effusion, or pneumothorax. Redemonstration of juxta fissural pulmonary nodule along the right major fissure measuring 5 mm (-102.5). D 4 mm pulmonary nodule in the right lower lobe is also unchanged (minus at 160.5). Triangular groundglass 4 mm pulmonary nodule in the left upper lobe (-34.5) is also unchanged. No new suspicious pulmonary nodules demonstrated. Central airways arepatent. ABDOMEN and PELVIS Again seen along the dome of the liver is a hypoattenuating lesion involving segments 7 difficult to accurately measure given location a with approximate dimensions of who 3.4 x 1.2 cm (minus 144.5), possibly slightly increased compared to prior imaging. Additional subserosal implants along the inferior margin of the liver in the region of segment 6 are redemonstrated with small nodule measuring 0.8 x 0.8 cm similar in size to prior imaging No new lesions demonstrated. No biliary ductal dilation demonstrated. Cholecystectomy clips seen in the gallbladder fossa in keeping with prior removal. The spleen is enlarged. The pancreas is normal in appearance. No ductal dilation demonstrated. Normal appearance of the adrenal glands. Normal enhancement of the kidneys. Stable exophytic cyst in the right kidney. No hydronephrosis. The bladder is predominantly decompressed. The uterus is surgically absent. There is an enhancing soft tissue nodule along the vaginal cuff which measures 1.5 x 1.5 cm (-492.5) , slightly increased in size and more prominent in appearance on today's imaging than on prior imaging at which time it measured 1.3 x 0.8 cm. This concerning for worsening site of metastatic disease. A smaller seen the nodule seen along the left vaginal cuff appear similar to prior imaging. No adnexal masses demonstrated. The small and large bowel are normal in caliber without obstruction. There is diverticulosis without evidence of acute diverticulitis. Diffuse thickening of the rectosigmoid colon in region of diverticular disease is likely related to extensive diverticulosis in this region. Minimal fat stranding in this region suggestive of possible mild or subacute diverticulitis, unchanged. Postsurgical changes from prior right hemicolectomy no evidence of anastomotic complication. 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 There is a small fat containing ventral hernia demonstrated. No free intraperitoneal air or free fluid is identified. Previously noted small omental nodules and nodules along the rectosigmoid colon in are unchanged compared to prior imaging. For example the previously noted represent nodule measures 7 x 6 mm (-382.5) Although there is no lymphadenopathy by size criteria there are multiple prominent, mildly enhancing pelvic sidewall, iliac and retroperitoneal lymph nodes which are similar to prior imaging. The abdominal aorta is normal in course and caliber. Bone windows demonstrate no suspicious osseous lesions. Degenerative change to the spine. IMPRESSION: 1. Possible slight increase in serosal soft tissue deposit along the dome of the liver; additional serosal deposits along the liver surface appear unchanged. 2. Slight interval increase of soft tissue nodule in the right vaginal cuff. Nodular deposit along the left vaginal cuff is similar. 3. Additional soft tissue deposits in the omentum and along the sigmoid mesocolon or not substantially changed remain suspicious for metastatic disease. 4. Stable appearance of small pulmonary nodules which remain indeterminate. Requested By: Eren Cr M.D. Dictated By: KAYLIN RAYMOND M.D. on Oct 01 2016 2:41P This document has been electronically signed by: KAYLIN RAYMOND M.D. on Oct 01 2016 2:41P [id number] us Not In File Miscellaneous IMG CT PROCEDURES Mel l Result * CT Chest W Contrast (10/01/2016 7:15 PM CDT) Anatomical Region Laterality Modality Body N/A Computed Tomogra phy 10/01/2016 7:15 PM CDT Narrative 10/01/2016 7:15 PM CDT KAYLIN RAYMOND M.D. FINAL REPORT ACC# ??Date Time ??Exam [id number] Oct 01, 2016 14:15:[id number] Chest with contrast [id number] Oct 01, 2016 14:15:[id number] Abd ??and ??Pelvis with cont EXAMINATION: ?? 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 TECHNIQUE: Computed tomography of the chest, abdomen, and pelvis was performed following the uneventful administration of 94 mL Optiray-350 intravenous contrast according to standard protocol. COMPARISON: CT from 04/18/2016 FINDINGS: CHEST Visualized portions of the thyroid are normal. No lymphadenopathy is identified in the chest. The heart size is normal. There is no pericardial effusion. The great vessels are normal in size. There is no pulmonary embolism. Mild atherosclerotic calcification of the aorta. The lungs are clear of consolidation, effusion, or pneumothorax. Redemonstration of juxta fissural pulmonary nodule along the right major fissure measuring 5 mm (-102.5). D 4 mm pulmonary nodule in the right lower lobe is also unchanged (minus at 160.5). Triangular groundglass 4 mm pulmonary nodule in the left upper lobe (-34.5) is also unchanged. No new suspicious pulmonary nodules demonstrated. Central airways are patent. ABDOMEN ??and ??PELVIS Again seen along the dome of the liver is a hypoattenuating lesion involving segments 7 difficult to accurately measure given location a with approximate dimensions of who 3.4 x 1.2 cm (minus 144.5), possibly slightly increased compared to prior imaging. Additional subserosal implants along the inferior margin of the liver in the region of segment 6 are redemonstrated with small nodule measuring 0.8 x 0.8 cm similar in size to prior imaging No new lesions demonstrated. No biliary ductal dilation demonstrated. Cholecystectomy clips seen in the gallbladder fossa in keeping with prior removal. The spleen is enlarged. The pancreas is normal in appearance. No ductal dilation demonstrated. Normal appearance of the adrenal glands. Normal enhancement of the kidneys. Stable exophytic cyst in the right kidney. No hydronephrosis. The bladder is predominantly decompressed. The uterus is surgically absent. There is an enhancing soft tissue nodule along the vaginal cuff which measures 1.5 x 1.5 cm (-492.5) , slightly increased in size and more prominent in appearance on today's imaging than on prior imaging at which time it measured 1.3 x 0.8 cm. This concerning for worsening site of metastatic disease. A smaller seen the nodule seen along the left vaginal cuff appear similar to prior imaging. No adnexal masses demonstrated. The small and large bowel are normal in caliber without obstruction. There is diverticulosis without evidence of acute diverticulitis. Diffuse thickening of the rectosigmoid colon in region of diverticular disease is likely related to extensive diverticulosis in this region. Minimal fat stranding in this region suggestive of possible mild or subacute diverticulitis, unchanged. Postsurgical changes from prior right hemicolectomy no evidence of anastomotic complication. 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 There is a small fat containing ventral hernia demonstrated. No free intraperitoneal air or free fluid is identified. Previously noted small omental nodules and nodules along the rectosigmoid colon in are unchanged compared to prior imaging. For example the previously noted represent nodule measures 7 x 6 mm (-382.5) Although there is no lymphadenopathy by size criteria there are multiple prominent, mildly enhancing pelvic sidewall, iliac and retroperitoneal lymph nodes which are similar to prior imaging. The abdominal aorta is normal in course and caliber. Bone windows demonstrate no suspicious osseous lesions. Degenerative change to the spine. IMPRESSION: ?? 1. Possible slight increase in serosal soft tissue deposit along the dome of the liver; additional serosal deposits along the liver surface appear unchanged. 2. Slight interval increase of soft tissue nodule in the right vaginal cuff. Nodular deposit along the left vaginal cuff is similar. 3. Additional soft tissue deposits in the omentum and along the sigmoid mesocolon or not substantially changed remain suspicious for metastatic disease. 4. Stable appearance of small pulmonary nodules which remain indeterminate. Requested By: Eren Cr ??M.D. ? Dictated By: ?? KAYLIN RAYMOND M.D. ??on Oct 01 2016 ??2:41P This document has been electronically signed by: KAYLIN RAYMOND M.D. on Oct 01 2016 ??2:41P [id number] Procedure Note Miscellaneous, Notinfile / Provider, MD Levon - 11/28/2016 KAYLIN RAYMOND M.D. 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 TECHNIQUE: Computed tomography of the chest, abdomen, and pelvis was performed following the uneventful administration of 94 mL Optiray-350 intravenous contrast according to standard protocol. COMPARISON: CT from 04/18/2016 FINDINGS: CHEST Visualized portions of the thyroid are normal. No lymphadenopathy is identified in the chest. The heart size is normal. There is no pericardial effusion. The great vessels are normal in size. There is no pulmonary embolism. Mild atherosclerotic calcification of the aorta. The lungs are clear of consolidation, effusion, or pneumothorax. Redemonstration of juxta fissural pulmonary nodule along the right major fissure measuring 5 mm (-102.5). D 4 mm pulmonary nodule in the right lower lobe is also unchanged (minus at 160.5). Triangular groundglass 4 mm pulmonary nodule in the left upper lobe (-34.5) is also unchanged. No new suspicious pulmonary nodules demonstrated. Central airways arepatent. ABDOMEN and PELVIS Again seen along the dome of the liver is a hypoattenuating lesion involving segments 7 difficult to accurately measure given location a with approximate dimensions of who 3.4 x 1.2 cm (minus 144.5), possibly slightly increased compared to prior imaging. Additional subserosal implants along the inferior margin of the liver in the region of segment 6 are redemonstrated with small nodule measuring 0.8 x 0.8 cm similar in size to prior imaging No new lesions demonstrated. No biliary ductal dilation demonstrated. Cholecystectomy clips seen in the gallbladder fossa in keeping with prior removal. The spleen is enlarged. The pancreas is normal in appearance. No ductal dilation demonstrated. Normal appearance of the adrenal glands. Normal enhancement of the kidneys. Stable exophytic cyst in the right kidney. No hydronephrosis. The bladder is predominantly decompressed. The uterus is surgically absent. There is an enhancing soft tissue nodule along the vaginal cuff which measures 1.5 x 1.5 cm (-492.5) , slightly increased in size and more prominent in appearance on today's imaging than on prior imaging at which time it measured 1.3 x 0.8 cm. This concerning for worsening site of metastatic disease. A smaller seen the nodule seen along the left vaginal cuff appear similar to prior imaging. No adnexal masses demonstrated. The small and large bowel are normal in caliber without obstruction. There is diverticulosis without evidence of acute diverticulitis. Diffuse thickening of the rectosigmoid colon in region of diverticular disease is likely related to extensive diverticulosis in this region. Minimal fat stranding in this region suggestive of possible mild or subacute diverticulitis, unchanged. Postsurgical changes from prior right hemicolectomy no evidence of anastomotic complication. 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 There is a small fat containing ventral hernia demonstrated. No free intraperitoneal air or free fluid is identified. Previously noted small omental nodules and nodules along the rectosigmoid colon in are unchanged compared to prior imaging. For example the previously noted represent nodule measures 7 x 6 mm (-382.5) Although there is no lymphadenopathy by size criteria there are multiple prominent, mildly enhancing pelvic sidewall, iliac and retroperitoneal lymph nodes which are similar to prior imaging. The abdominal aorta is normal in course and caliber. Bone windows demonstrate no suspicious osseous lesions. Degenerative change to the spine. IMPRESSION: 1. Possible slight increase in serosal soft tissue deposit along the dome of the liver; additional serosal deposits along the liver surface appear unchanged. 2. Slight interval increase of soft tissue nodule in the right vaginal cuff. Nodular deposit along the left vaginal cuff is similar. 3. Additional soft tissue deposits in the omentum and along the sigmoid mesocolon or not substantially changed remain suspicious for metastatic disease. 4. Stable appearance of small pulmonary nodules which remain indeterminate. Requested By: Eren Cr M.D. Dictated By: KAYLIN RAYMOND M.D. on Oct 01 2016 2:41P This document has been electronically signed by: KAYLIN RAYMOND M.D. on Oct 01 2016 2:41P [id number] us Not In File Miscellaneous IMG CT PROCEDURES Mel l Result documented in this encounter Visit Diagnoses Not on filedocumented in this encounter Care Teams Real Estate Manager Relationship Specialty Start Date End Date Julio César Briseno MD PCP - General 10/01/16 documented as of this encounter
--- OUTSIDE RECORDS SUMMARY | 2024-06-25 22:39 | XMS_ITS | Encounter Summary ---
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 Gender Identity Not on file Sexual Orientation Straight 02/19/2021 9: 29 AM CDT documented as of this encounter Plan of Treatment Not on file documented as of this encounter Procedures Procedure Name Priority Date/Time Associated Diagnosis Comments COMPREHENSIVE METABOLIC PANEL Routine Gen Lab 12/31/2016 11:55 AM CDT documented in this encounter Results * (ABNORMAL) Comprehensive metabolic panel (12/31/2016 11:55 AM CDT) Sodium 140 135 - 145 mmol/L [facility] Potassium, pl 3.9 3.3 - 4.9 mmol/L [facility] CO2 28 22 - 32 mmol/L [facility] BUN 12 8 - 25 mg/dL [facility] Glucose 111 70 - 199 mg/dL [facility] Creatinine 0.83 0.60 - 1.10 mg/dL [facility] Calcium 10.9(H) 8.5 - 10.3 mg/dL [facility] Chloride 103 97 - 110 mmol/L [facility] Albumin 4.3 3.5 - 5.0 g/dL [facility] AST 24 10 - 45 Units/L [facility] ALT 18 7 - 45 Units/L [facility] Alk phos 111 40 - 130 Units/L [facility] Bilirubin, total 0.9 0.1 - 1.2 mg/dL [facility] Protein, pl 7.2 6.5 - 8.5 g/dL [facility] Anion gap 9 2 - 15 mmol/L [facility] Blood specimen (specimen) 12/31/2016 11:55 AM CDT 12/31/2016 11:57 AM CDT Eren Cr MD LAB BLOOD ORDERABLES Final Re sult [facility] Department [place] [address] documented in this encounter Visit Diagnoses Not on filedocumented in this encounter Care Teams Resource Recovery Specialist Relationship Specialty Start Date End Date Julio César Briseno MD PCP - General 10/01/16 documented as of this encounter
--- OUTSIDE RECORDS SUMMARY | 2024-06-25 22:39 | XMS_ITS | Encounter Summary ---
Author Organization [facility] Healthcare Address [address] [place] [address] Care Team Providers Care Workers' Compensation Magistrate Name Role Phone Julio César Briseno MD Primary Care Provider [phone] Encounter Details Date Type Department Care Team (Latest Contact Info) Description 04/29/2017 7:30 AM CDT - 04/29/2017 11:59 PM CDT Hospital Encounter 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 Gender Identity Not on file Sexual Orientation Straight 02/19/2021 9: 29 AM CDT documented as of this encounter Medications at Time of Discharge ascorbic acid, vitamin C, 500 mg capsuleIndicatio ns:supplement Take 1 tablet by mouth chyron operator before breakfast 07/04/2016 4 octreotide (SandoSTATIN) 50 [...] Comments CT ABDOMEN PELVIS W CONTRAST Routine 04/29/2017 1:[address] CHEST W CONTRAST Routine 04/29/2017 1 :15 PM CDT documented in this encounter Results * CT Abdomen Pelvis W Contrast (04/29/2017 1:15 PM CDT) Anatomical Region Laterality Modality Body N/A Computed Tomogra phy 04/29/2017 1:15 PM CDT Narrative 04/29/2017 1:28 PM CDT GÉNESIS BOND M.D. FINAL REPORT ACC# ??Date Time ??Exam [id number] Apr 29, 2017 08:15:[id number] Chest with contrast [id number] Apr 29, 2017 08:15:[id number] Abd ??and ??Pelvis with cont EXAMINATION: ??CT CHEST, ABDOMEN AND PELVIS WITH INTRAVENOUS CONTRAST TECHNIQUE: Standard CT of the chest, abdomen and pelvis was performed after the administration of intravenous contrast. ??Studies were performed after the administration of the following amount of Optiray 350: 96 mL HISTORY: Neuroendocrine tumor. FINDINGS: Comparison is made to prior study of December 31, 2016 Chest: No supraclavicular, axillary or mediastinal lymphadenopathy is seen. 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 Trace pericardial fluid is identified but there is no pleural effusion. Groundglass opacities in the right lower lobe at slice position 4 adjacent to the major fissure which likely represents a small lymph node and is without change compared to the prior study. There is also very mild peripheral groundglass which could represent a minimal amount of organizing pneumonia. Tiny groundglass nodule right basilar -44 is also without change. There are no new nodules or airspace opacity seen. Abdomen/pelvis: Again noted is marked splenomegaly without change. The liver is normal in appearance without any focal lesion or bile duct dilatation. Patient is status post cholecystectomy again seen is mild bile duct dilatation. Patient is post hysterectomy. The urinary bladder is decompressed. Mild pelvic floor relaxation is noted. Multiple diverticula are seen but there is no diverticulitis. Again seen is a ventral hernia containing fat but no bowel. Adjacent to the liver again seen is a small enhancing nodule at slice position -112 that likely represents a capsular implant. Also noted is some mild thickening in the subphrenic region on the right at slice position -32 representing subphrenic/subcapsular implant. These are also without change compared to the prior study. Stable deposits are seen along the sigmoid mesial colon at slice position -312 There is no new mass. The abdominal aorta is normal in caliber. The adrenal glands are normal. Tiny cyst is seen in the right kidney but no hydronephrosis. Left kidney is also unremarkable. Partial resection of the ascending colon is seen. There is no lymphadenopathy. The bone windows again demonstrate a sclerotic focus which is indeterminate at L1 but may represent degenerative disc disease. Again seen are injection granulomata in the buttocks. IMPRESSION: ??No significant change compared to the prior study. Stable intraperitoneal capsular implants and implants along the sigmoid mesocolon. Electronically signed by: Génesis Bodn M.D. Requested By: EREN WU M.D. Dictated By: ?? GÉNESIS BOND M.D. ??on Apr 29 2017 ??8:26A This document has been electronically signed by: GÉNESIS BOND M.D. on Apr 29 2017 ??8:26A [id number] BOND M.D. FINAL REPORT Attending: ??BRYCE, ??EREN Requesting: ??BRYCE, ??EREN Requesting Fax: ?? Attending Fax: ?? Attending ID: ??[id number] Requesting ID: ??[id number] Report To 1 ID: ??[id number] ? Report To 1 Name: ??, ?? Report To 1 FAX: ?? NextGen Order #: ?? Procedure Note Miscellaneous, Not In File - 04/29/2017 GÉNESIS VARUN, M.D. FINAL REPORT ACC# Date Time Exam [id number] Apr 29, 2017 08:15:[id number] Chest with contrast [id number] Apr 29, 2017 08:15:[id number] Abd and Pelvis with cont EXAMINATION: CT CHEST, ABDOMEN AND PELVIS WITH INTRAVENOUS CONTRAST TECHNIQUE: Standard CT of the chest, abdomen and pelvis was performed after the administration of intravenous contrast. Studies were performed after the administration of the following amount of Optiray 350: 96 mL HISTORY: Neuroendocrine tumor. FINDINGS: Comparison is made to prior study of December 31, 2016 Chest: No supraclavicular, axillary or mediastinal lymphadenopathy is seen. 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 Trace pericardial fluid is identified but there is no pleural effusion. Groundglass opacities in the right lower lobe at slice position 4 adjacent to the major fissure which likely represents a small lymph node and is without change compared to the prior study. There is also very mild peripheral groundglass which could represent a minimal amount of organizing pneumonia. Tiny groundglass nodule right basilar -44 is also without change. There are no new nodules or airspace opacity seen. Abdomen/pelvis: Again noted is marked splenomegaly without change. The liver is normal in appearance without any focal lesion or bile duct dilatation. Patient is status post cholecystectomy again seen is mild bile duct dilatation. Patient is post hysterectomy. The urinary bladder is decompressed. Mild pelvic floor relaxation is noted. Multiple diverticula are seen but there is no diverticulitis. Again seen is a ventral hernia containing fat but no bowel. Adjacent to the liver again seen is a small enhancing nodule at slice position -112 that likely represents a capsular implant. Also noted is some mild thickening in the subphrenic region on the right at slice position -32 representing subphrenic/subcapsular implant. These are also without change compared to the prior study. Stable deposits are seen along the sigmoid mesial colon at slice position -312 There is no new mass. The abdominal aorta is normal in caliber. The adrenal glands are normal. Tiny cyst is seen in the right kidney but no hydronephrosis. Left kidney is also unremarkable. Partial resection of the ascending colon is seen. There is no lymphadenopathy. The bone windows again demonstrate a sclerotic focus which is indeterminate at L1 but may represent degenerative disc disease. Again seen are injection granulomata in the buttocks. IMPRESSION: No significant change compared to the prior study. Stable intraperitoneal capsular implants and implants along the sigmoid mesocolon. Electronically signed by: Génesis Bond M.D. Requested By: EREN WU M.D. Dictated By: GÉNESIS BOND M.D. on Apr 29 2017 8:26A This document has been electronically signed by: GÉNESIS BOND M.D. on Apr 29 2017 8:26A [id number] BOND M.D. FINAL REPORT Attending: EREN WU Requesting: EREN WU Requesting Fax: Attending Fax: Attending ID: [id number] Requesting ID: [id number] Report To 1 ID: [id number] Report To 1 Name: , Report To 1 FAX: NextGen Order #: Eren Wu MD IMG CT PROCEDURES Final Resul t * CT Chest W Contrast (04/29/2017 1:15 PM CDT) Anatomical Region Laterality Modality Body N/A Computed Tomogra phy 04/29/2017 1:15 PM CDT Narrative 04/29/2017 1:28 PM CDT GÉNESIS BOND M.D. FINAL REPORT ACC# ??Date Time ??Exam [id number] Apr 29, 2017 08:15:[id number] Chest with contrast [id number] Apr 29, 2017 08:15:[id number] Abd ??and ??Pelvis with cont EXAMINATION: ??CT CHEST, ABDOMEN AND PELVIS WITH INTRAVENOUS CONTRAST TECHNIQUE: Standard CT of the chest, abdomen and pelvis was performed after the administration of intravenous contrast. ??Studies were performed after the administration of the following amount of Optiray 350: 96 mL HISTORY: Neuroendocrine tumor. FINDINGS: Comparison is made to prior study of December 31, 2016 Chest: No supraclavicular, axillary or mediastinal lymphadenopathy is seen. 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 Trace pericardial fluid is identified but there is no pleural effusion. Groundglass opacities in the right lower lobe at slice position 4 adjacent to the major fissure which likely represents a small lymph node and is without change compared to the prior study. There is also very mild peripheral groundglass which could represent a minimal amount of organizing pneumonia. Tiny groundglass nodule right basilar -44 is also without change. There are no new nodules or airspace opacity seen. Abdomen/pelvis: Again noted is marked splenomegaly without change. The liver is normal in appearance without any focal lesion or bile duct dilatation. Patient is status post cholecystectomy again seen is mild bile duct dilatation. Patient is post hysterectomy. The urinary bladder is decompressed. Mild pelvic floor relaxation is noted. Multiple diverticula are seen but there is no diverticulitis. Again seen is a ventral hernia containing fat but no bowel. Adjacent to the liver again seen is a small enhancing nodule at slice position -112 that likely represents a capsular implant. Also noted is some mild thickening in the subphrenic region on the right at slice position -32 representing subphrenic/subcapsular implant. These are also without change compared to the prior study. Stable deposits are seen along the sigmoid mesial colon at slice position -312 There is no new mass. The abdominal aorta is normal in caliber. The adrenal glands are normal. Tiny cyst is seen in the right kidney but no hydronephrosis. Left kidney is also unremarkable. Partial resection of the ascending colon is seen. There is no lymphadenopathy. The bone windows again demonstrate a sclerotic focus which is indeterminate at L1 but may represent degenerative disc disease. Again seen are injection granulomata in the buttocks. IMPRESSION: ??No significant change compared to the prior study. Stable intraperitoneal capsular implants and implants along the sigmoid mesocolon. Electronically signed by: Génesis Bond M.D. Requested By: EREN WU M.D. Dictated By: ?? GÉNESIS BOND M.D. ??on Apr 29 2017 ??8:26A This document has been electronically signed by: GÉNESIS BOND M.D. on Apr 29 2017 ??8:26A [id number] BOND M.D. FINAL REPORT Attending: ??BRYCE, ??EREN Requesting: ??BRYCE, ??EREN Requesting Fax: ?? Attending Fax: ?? Attending ID: ??[id number] Requesting ID: ??[id number] Report To 1 ID: ??[id number] ? Report To 1 Name: ??, ?? Report To 1 FAX: ?? NextGen Order #: ?? Procedure Note Miscellaneous, Not In File - 04/29/2017 GÉNESIS BOND M.D. FINAL REPORT ACC# Date Time Exam [id number] Apr 29, 2017 08:15:[id number] Chest with contrast [id number] Apr 29, 2017 08:15:[id number] Abd and Pelvis with cont EXAMINATION: CT CHEST, ABDOMEN AND PELVIS WITH INTRAVENOUS CONTRAST TECHNIQUE: Standard CT of the chest, abdomen and pelvis was performed after the administration of intravenous contrast. Studies were performed after the administration of the following amount of Optiray 350: 96 mL HISTORY: Neuroendocrine tumor. FINDINGS: Comparison is made to prior study of December 31, 2016 Chest: No supraclavicular, axillary or mediastinal lymphadenopathy is seen. 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 Trace pericardial fluid is identified but there is no pleural effusion. Groundglass opacities in the right lower lobe at slice position 4 adjacent to the major fissure which likely represents a small lymph node and is without change compared to the prior study. There is also very mild peripheral groundglass which could represent a minimal amount of organizing pneumonia. Tiny groundglass nodule right basilar -44 is also without change. There are no new nodules or airspace opacity seen. Abdomen/pelvis: Again noted is marked splenomegaly without change. The liver is normal in appearance without any focal lesion or bile duct dilatation. Patient is status post cholecystectomy again seen is mild bile duct dilatation. Patient is post hysterectomy. The urinary bladder is decompressed. Mild pelvic floor relaxation is noted. Multiple diverticula are seen but there is no diverticulitis. Again seen is a ventral hernia containing fat but no bowel. Adjacent to the liver again seen is a small enhancing nodule at slice position -112 that likely represents a capsular implant. Also noted is some mild thickening in the subphrenic region on the right at slice position -32 representing subphrenic/subcapsular implant. These are also without change compared to the prior study. Stable deposits are seen along the sigmoid mesial colon at slice position -312 There is no new mass. The abdominal aorta is normal in caliber. The adrenal glands are normal. Tiny cyst is seen in the right kidney but no hydronephrosis. Left kidney is also unremarkable. Partial resection of the ascending colon is seen. There is no lymphadenopathy. The bone windows again demonstrate a sclerotic focus which is indeterminate at L1 but may represent degenerative disc disease. Again seen are injection granulomata in the buttocks. IMPRESSION: No significant change compared to the prior study. Stable intraperitoneal capsular implants and implants along the sigmoid mesocolon. Electronically signed by: Génesis Bond M.D. Requested By: EREN WU M.D. Dictated By: GÉNESIS BOND M.D. on Apr 29 2017 8:26A This document has been electronically signed by: GÉNESIS BOND M.D. on Apr 29 2017 8:26A [id number] BOND M.D. FINAL REPORT Attending: EREN WU Requesting: EREN WU Requesting Fax: Attending Fax: Attending ID: [id number] Requesting ID: [id number] Report To 1 ID: [id number] Report To 1 Name: , Report To 1 FAX: NextGen Order #: [id number] Eren Wu MD IMG CT PROCEDURES Final Resul t documented in this encounter Visit Diagnoses Not on filedocumented in this encounter Care Teams Workers' Compensation Magistrate Relationship Specialty Start Date End Date Julio César Briseno MD PCP - General 10/01/16 documented as of this encounter
--- OUTSIDE RECORDS SUMMARY | 2024-06-25 22:39 | XMS_ITS | Encounter Summary ---
Author Organization [facility] Healthcare Address [address] [place] [address] Care Team Providers Care Ticker Maintainer Name Role Phone Julio César Briseno MD Primary Care Provider [phone] Encounter Details Date Type Department Care Team (Late st Contact Info) Description 10/08/2016 Orders Only [facility] Inter[facility] [phone] Eren Cr MD [address] [facility] [address] [place], [place] [id number] Social History Tobacco Use Types Packs/Day Years Used Date Smoking Tobacco: Never Assessed Comments Unknown Sex and Gender Information Value Date Recorded Sex Assigned at Not on file 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 Non-Smokers: ??0.1 - 5.0 ng/mL ? Smokers: ?0.1 - 6.5 ng/mL ?? This test was developed and its performance characteristics determined by the [facility] in a manner consistent with CLIA requirements. This test has not been cleared or approved by the U.S. Food and Drug Administration. Current interpretive data was last revised 2015. Blood specimen (specimen) 10/08/2016 12:35 PM CDT 10/08/2016 4:39 PM CDT us Eren Cr MD LAB BLOOD ORDERABLES Final Re sult [facility] [place] [address] documented in this encounter Visit Diagnoses Not on filedocumented in this encounter Care Teams Ticker Maintainer Relationship Specialty Start Date End Date Julio César Briseno MD PCP - General 10/01/16 documented as of this encounter
--- OUTSIDE RECORDS SUMMARY | 2024-06-25 22:39 | XMS_ITS | Encounter Summary ---
Author Organization [facility] Healthcare Address [address] [place] [address] Care Team Providers Care Looping Inspector Name Role Phone Julio César Briseno MD Primary Care Provider [phone] Encounter Details Date Type Department Care Team (Late st Contact Info) Description 10/08/2016 Orders Only [facility] Interim [phone] Eren Cr MD [address] [facility] [address] [place], [place] [id number] Social History Tobacco Use Types Packs/Day Years Used Date Smoking Tobacco: Never Assessed Comments Unknown Sex and Gender Information Value Date Recorded Sex Assigned at Not on file 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 Analyte Specific Reagent: This test was developed and its performance characteristics determined by [facility]. It has not been cleared or approved by the U.S. Food and Drug Administration. ? Values obtained with different assay methods or kits may be different and cannot be used interchangeably. ? Test results cannot be interpreted as absolute evidence for the presence or absence of malignant disease. Test Performed by: [place] [address] Blood specimen (specimen) 10/08/2016 12:02 PM CDT 10/08/2016 2:36 PM CDT us Eren Cr MD LAB BLOOD ORDERABLES Final Re sult [facility] Department [place] [address] documented in this encounter Visit Diagnoses Not on filedocumented in this encounter Care Teams Looping Inspector Relationship Specialty Start Date End Date Julio César Briseno MD PCP - General 10/01/16 documented as of this encounter
--- OUTSIDE RECORDS SUMMARY | 2024-06-25 22:39 | XMS_ITS | Encounter Summary ---
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[employer] - 05/16/2016 11:59 PM [facility] Hospital Encounter [facility]CON[facility]ir Thomason MD [phone] [place] [id number] Encounter for screening for malignant neoplasm of cervix; Disease of intestine Social History Tobacco Use Types Packs/Day Years Used Date Smoking Tobacco: Never Assessed Comments Unknown Sex and Gender Information Value Date Recorded Sex Assigned at Not on file 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 us Historical Provider LAB CYTOLOGY ORDERABLES F inal Result documented in this encounter Visit Diagnoses Diagnosis Encounter for screening for malignant neoplasm of cervix Disease of intestine Unspecified disorder of intestine documented in this encounter
--- OUTSIDE RECORDS SUMMARY | 2024-06-25 22:39 | XMS_ITS | Encounter Summary ---
Author Organization [facility] Healthcare Address [address] [place] [address] Care Team Providers Care Printed Circuit Board Panels Deburrer Name Role Phone Julio César Briseno MD Primary Care Provider [phone] Encounter Details Date Type Department Care Team (Late st Contact Info) Description 12/04/2016 Orders Only [facility] Interim [phone] Eren Cr MD [address] [facility] [address] [place], [place] [id number] Social History Tobacco Use Types Packs/Day Years Used Date Smoking Tobacco: Never Assessed Comments Unknown Sex and Gender Information Value Date Recorded Sex Assigned at Not on file 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 Gender Identity Not on file Sexual Orientation Straight 02/19/2021 9: 29 AM CDT documented as of this encounter Plan of Treatment Not on file documented as of this encounter Procedures Procedure Name Priority Date/Time Associated Diagnosis Comments COMPREHENSIVE METABOLIC PANEL STAT 12/04/2016 7:00 AM CDT documented in this encounter Results * (ABNORMAL) Comprehensive metabolic panel (12/04/2016 7:00 AM CDT) Sodium 141 135 - 145 mmol/L [facility] Potassium, pl 4.1 3.3 - 4.9 mmol/L [facility] CO2 26 22 - 32 mmol/L [facility] BUN 19 8 - 25 mg/dL [facility] Glucose 122 70 - 199 mg/dL [facility] Creatinine 0.70 0.60 - 1.10 mg/dL [facility] Calcium 10.4(H) 8.5 - 10.3 mg/dL [facility] Chloride 104 97 - 110 mmol/L [facility] Comment:fixed result mapping Albumin 4.0 3.5 - 5.0 g/dL [facility] AST 24 10 - 45 Units/L [facility] ALT 20 7 - 45 Units/L [facility] Alk phos 91 40 - 130 Units/L [facility] Bilirubin, total 0.5 0.1 - 1.2 mg/dL [facility] Protein, pl 6.8 6.5 - 8.5 g/dL [facility] Anion gap 11 2 - 15 mmol/L [facility] Blood specimen (specimen) 12/04/2016 7:00 AM CDT 12/04/2016 7:37 AM CDT us Eren Cr MD LAB BLOOD ORDERABLES Final Re sult [facility] One [facility] Department [place] [address] documented in this encounter Visit Diagnoses Not on filedocumented in this encounter Care Teams Printed Circuit Board Panels Deburrer Relationship Specialty Start Date End Date Julio César Briseno MD PCP - General 10/01/16 documented as of this encounter
--- OUTSIDE RECORDS SUMMARY | 2024-06-25 22:39 | XMS_ITS | Encounter Summary ---
Author Organization [facility] Healthcare Address [address] [place] [address] Care Team Providers Care Back Winder Name Role Phone Julio César Briseno MD Primary Care Provider Encounter Details Date Type Department Care Team (Latest Contact Info) Description 12/31/2016 11:51 AM CDT - 12/31/2016 11:59 PM CDT Hospital Encounter 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 Gender Identity Not on file Sexual Orientation Straight 02/19/2021 9: 29 AM CDT documented as of this encounter Medications at Time of Discharge ascorbic acid, vitamin C, 500 mg capsuleIndicatio ns:supplement Take 1 tablet by mouth investigation lieutenant before breakfast 07/04/2016 4 octreotide (SandoSTATIN) 50 [...] Comments CT ABDOMEN PELVIS W CONTRAST Routine 12/31/2016 5:[address] CHEST W CONTRAST Routine 12/31/2016 5 :35 PM CDT documented in this encounter Results * CT Chest W Contrast (12/31/2016 5:35 PM CDT) Anatomical Region Laterality Modality Body N/A Computed Tomogra phy 12/31/2016 5:35 PM CDT Narrative 12/31/2016 5:35 PM CDT DEIDRE GUZMAN M.D. FINAL REPORT ACC# ??Date Time ??Exam [id number] Dec 31, 2016 12:35:[id number] Abd ??and ??Pelvis with cont [id number] Dec 31, 2016 12:35:[address] Chest with contrast EXAMINATION: ?? Computed tomography of the chest, abdomen, and pelvis with intravenous contrast DATE: 12/31/2016. 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 TECHNIQUE: Computed tomography images of the chest, abdomen, and pelvis were obtained after the uneventful administration of Optiray-350 according to standard protocol. FINDINGS: Comparison is made to 10/01/2016. There are relatively unchanged right supraclavicular lymph nodes . No new mediastinal or hilar lymphadenopathy. Heart size is normal, no pericardial effusion. Incidental note is made of an aberrant right subclavian artery. No new suspicious pulmonary nodules or masses. No consolidation, effusion, or pneumothorax. Again seen are findings of numerous intraperitoneal deposits which can be seen along the posterior right hepatic lobe surface, in the omentum, and along the vaginal cuff. 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 No new lesions in the liver itself. The gallbladder surgically absent. Spleen, pancreas, adrenal glands, and kidneys are unchanged. There is stable small abdominal and pelvic retroperitoneal lymph nodes. There is a small fat containing ventral hernia. Portal and superior mesenteric veins are patent. Hepatic arterial anatomy is standard. Aorta is normal. Bone windows demonstrate no new suspicious lytic or blastic lesions. There are some new conglomerations of soft tissue nodules in the posterior adipose bilaterally, which are likely related to injections. IMPRESSION: ?? 1. Stable intraperitoneal disease as described above. 2. No new sites of metastatic disease. Requested By: EREN WU M.D. Dictated By: ?? DEIDRE GUZMAN M.D. ??on Dec 31 2016 ??1:08P This document has been electronically signed by: DEIDRE GUZMAN M.D. on Dec 31 2016 ??1:08P [id number] GUZMAN M.D. FINAL REPORT Attending: ??BRYCE, ??EREN Requesting: ??BRYCE, ??EREN Requesting Fax: ?? Attending Fax: ?? Attending ID: ??[id number] Requesting ID: ??[id number] Report To 1 ID: ??[id number] ? Report To 1 Name: ??, ?? Report To 1 FAX: ?? NextGen Order #: ?? Procedure Note Miscellaneous, Not In File - 04/25/2017 DEIDRE GUZMAN M.D. FINAL REPORT ACC# Date Time Exam [id number] Dec 31, 2016 12:35:[address] Abd and Pelvis with cont [id number] Dec 31, 2016 12:35:[address] Chest with contrast EXAMINATION: Computed tomography of the chest, abdomen, and pelvis with intravenous contrast DATE: 12/31/2016. 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 TECHNIQUE: Computed tomography images of the chest, abdomen, and pelvis were obtained after the uneventful administration of Optiray-350 according to standard protocol. FINDINGS: Comparison is made to 10/01/2016. There are relatively unchanged right supraclavicular lymph nodes . No new mediastinal or hilar lymphadenopathy. Heart size is normal, no pericardial effusion. Incidental note is made of an aberrant right subclavian artery. No new suspicious pulmonary nodules or masses. No consolidation, effusion, or pneumothorax. Again seen are findings of numerous intraperitoneal deposits which can be seen along the posterior right hepatic lobe surface, in the omentum, and along the vaginal cuff. 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 No new lesions in the liver itself. The gallbladder surgically absent. Spleen, pancreas, adrenal glands, and kidneys are unchanged. There is stable small abdominal and pelvic retroperitoneal lymph nodes. There is a small fat containing ventral hernia. Portal and superior mesenteric veins are patent. Hepatic arterial anatomy is standard. Aorta is normal. Bone windows demonstrate no new suspicious lytic or blastic lesions. There are some new conglomerations of soft tissue nodules in the posterior adipose bilaterally, which are likely related to injections. IMPRESSION: 1. Stable intraperitoneal disease as described above. 2. No new sites of metastatic disease. Requested By: EREN WU M.D. Dictated By: DEIDRE GUZMAN M.D. on Dec 31 2016 1:08P This document has been electronically signed by: DEIDRE GUZMAN M.D. on Dec 31 2016 1:08P [id number] RAPTIS, M.D. FINAL REPORT Attending: EREN WU Requesting: EREN WU Requesting Fax: Attending Fax: Attending ID: [id number] Requesting ID: [id number] Report To 1 ID: [id number] Report To 1 Name: , Report To 1 FAX: NextGen Order #: Eren Wu MD IMG CT PROCEDURES Edited Resu lt - Final * CT Abdomen Pelvis W Contrast (12/31/2016 5:35 PM CDT) Anatomical Region Laterality Modality Body N/A Computed Tomogra phy 12/31/2016 5:35 PM CDT Narrative 12/31/2016 5:35 PM CDT DEIDRE GUZMAN M.D. FINAL REPORT ACC# ??Date Time ??Exam [id number] Dec 31, 2016 12:35:[address] Abd ??and ??Pelvis with cont [id number] Dec 31, 2016 12:35:[address] Chest with contrast EXAMINATION: ?? Computed tomography of the chest, abdomen, and pelvis with intravenous contrast DATE: 12/31/2016. 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 TECHNIQUE: Computed tomography images of the chest, abdomen, and pelvis were obtained after the uneventful administration of Optiray-350 according to standard protocol. FINDINGS: Comparison is made to 10/01/2016. There are relatively unchanged right supraclavicular lymph nodes . No new mediastinal or hilar lymphadenopathy. Heart size is normal, no pericardial effusion. Incidental note is made of an aberrant right subclavian artery. No new suspicious pulmonary nodules or masses. No consolidation, effusion, or pneumothorax. Again seen are findings of numerous intraperitoneal deposits which can be seen along the posterior right hepatic lobe surface, in the omentum, and along the vaginal cuff. 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 No new lesions in the liver itself. The gallbladder surgically absent. Spleen, pancreas, adrenal glands, and kidneys are unchanged. There is stable small abdominal and pelvic retroperitoneal lymph nodes. There is a small fat containing ventral hernia. Portal and superior mesenteric veins are patent. Hepatic arterial anatomy is standard. Aorta is normal. Bone windows demonstrate no new suspicious lytic or blastic lesions. There are some new conglomerations of soft tissue nodules in the posterior adipose bilaterally, which are likely related to injections. IMPRESSION: ?? 1. Stable intraperitoneal disease as described above. 2. No new sites of metastatic disease. Requested By: EREN WU M.D. Dictated By: ?? DEIDRE GUZMAN M.D. ??on Dec 31 2016 ??1:08P This document has been electronically signed by: DEIDRE GUZMAN M.D. on Dec 31 2016 ??1:08P [id number] RAPTIS, M.D. FINAL REPORT Attending: ??BRYCE, ??EREN Requesting: ??BRYCE, ??EREN Requesting Fax: ?? Attending Fax: ?? Attending ID: ??[id number] Requesting ID: ??[id number] Report To 1 ID: ??[id number] ? Report To 1 Name: ??, ?? Report To 1 FAX: ?? NextGen Order #: ?? Procedure Note Miscellaneous, Not In File - 04/25/2017 DEIDRE GUZMAN M.D. FINAL REPORT [facility]# Date Time Exam [id number] Dec 31, 2016 12:35:[address] Abd and Pelvis with cont [id number] Dec 31, 2016 12:35:[address] Chest with contrast EXAMINATION: Computed tomography of the chest, abdomen, and pelvis with intravenous contrast DATE: 12/31/2016. 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 TECHNIQUE: Computed tomography images of the chest, abdomen, and pelvis were obtained after the uneventful administration of Optiray-350 according to standard protocol. FINDINGS: Comparison is made to 10/01/2016. There are relatively unchanged right supraclavicular lymph nodes . No new mediastinal or hilar lymphadenopathy. Heart size is normal, no pericardial effusion. Incidental note is made of an aberrant right subclavian artery. No new suspicious pulmonary nodules or masses. No consolidation, effusion, or pneumothorax. Again seen are findings of numerous intraperitoneal deposits which can be seen along the posterior right hepatic lobe surface, in the omentum, and along the vaginal cuff. 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 No new lesions in the liver itself. The gallbladder surgically absent. Spleen, pancreas, adrenal glands, and kidneys are unchanged. There is stable small abdominal and pelvic retroperitoneal lymph nodes. There is a small fat containing ventral hernia. Portal and superior mesenteric veins are patent. Hepatic arterial anatomy is standard. Aorta is normal. Bone windows demonstrate no new suspicious lytic or blastic lesions. There are some new conglomerations of soft tissue nodules in the posterior adipose bilaterally, which are likely related to injections. IMPRESSION: 1. Stable intraperitoneal disease as described above. 2. No new sites of metastatic disease. Requested By: EREN WU M.D. Dictated By: DEIDRE GUZMAN M.D. on Dec 31 2016 1:08P This document has been electronically signed by: DEIDRE GUZMAN M.D. on Dec 31 2016 1:08P [id number] A GUZMAN M.D. FINAL REPORT Attending: EREN WU Requesting: EREN WU Requesting Fax: Attending Fax: Attending ID: [id number] Requesting ID: [id number] Report To 1 ID: [id number] Report To 1 Name: , Report To 1 FAX: NextGen Order #: us Eren Wu MD IMG CT PROCEDURES Edited Resu lt - Final documented in this encounter Visit Diagnoses Not on filedocumented in this encounter Care Teams Back Winder Relationship Specialty Start Date End Date Julio César Briseno MD PCP - General 10/01/16 documented as of this encounter
--- OUTSIDE RECORDS SUMMARY | 2024-06-25 22:39 | XMS_ITS | Encounter Summary ---
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 Hospital Encounter [facility] Bailee West MD [address] [address] Encounter for screening mammogram for malignant neoplasm of breast Social History Tobacco Use Types Packs/Day Years Used Date Smoking Tobacco: Never Assessed Comments Unknown Sex and Gender Information Value Date Recorded Sex Assigned at Not on file 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 Gender Identity Not on file Sexual Orientation Straight 02/19/2021 9: 29 AM CDT documented as of this encounter Plan of Treatment Not on file documented as of this encounter Procedures Procedure Name Priority Date/Time Associated Diagnosis Comments SCREENING MAMMOGRAM W KHANH Routine 06/29/2015 9:18 AM LABOR RELATIONS TEACHER documented in this encounter Results * Screening Mammogram W Khanh (06/29/2015 9:18 AM LABOR RELATIONS TEACHER) Anatomical Region Laterality Modality Breast N/A Mammography 06/29/2015 9:18 AM LABOR RELATIONS TEACHER Narrative 06/29/2015 2:28 PM LABOR RELATIONS TEACHER MONO WHITLOCK M.D. FINAL REPORT ACC# ??Date Time ??Exam [id number] Jun 29, 2015 09:18:00 [facility] [id number] Bilateral screen w khanh ?? Technologist(s): Linda Reza; ; EXAMINATION: ??Mammogram Technique: Bilateral Full-Field Digital Screening Mammogram and Digital Breast Tomosynthesis were performed. ??Views obtained: ??bilateral craniocaudal and bilateral mediolateral oblique. ??Computer Aided Detection of the 2D images was performed with PurePhoto.3 version 9.3. Mammogram Findings: The present examination has been compared to a prior imaging study performed at [facility] on 06/28/2014. The breasts are heterogeneously dense, which may obscure small masses. There is no suspicious abnormality in either breast. IMPRESSION: ??Annual screening mammography is recommended. OVERALL FINAL ASSESSMENT: BI-RADS CATEGORY 1: ??Negative. Requested By: Dictated By: ?? MNOO WHITLOCK M.D. ??on Jun 29 2015 ??2:28P This document has been electronically signed by: MONO WHITLOCK M.D. on Jun 29 2015 ??2:28P [id number] Procedure Note Provider, MD Levon - 11/01/2016 MONO WHITLOCK M.D. FINAL REPORT ACC# Date Time Exam [id number] Jun 29, 2015 09:18:00 [facility] [id number] Bilateral screen w khanh Technologist(s): Linda Reza; ; EXAMINATION: Mammogram Technique: Bilateral Full-Field Digital Screening Mammogram and Digital Breast Tomosynthesis were performed. Views obtained: bilateral craniocaudaland bilateral mediolateral oblique. Computer Aided Detection of the 2Dimages was performed with PurePhoto.3 version 9.3. Mammogram Findings: The present examination has been compared to a prior imaging study performed at [facility] on 06/28/2014. The breasts are heterogeneously dense, which may obscure small masses. There is no suspicious abnormality in either breast. IMPRESSION: Annual screening mammography is recommended. OVERALL FINAL ASSESSMENT: BI-RADS CATEGORY 1: Negative. Requested By: Dictated By: MONO WHITLOCK M.D. on Jun 29 2015 2:28P This document has been electronically signed by: MONO WHITLOCK M.D. on Jun 29 2015 2:28P [id number] Historical Provider MD ALONZO MAMMO PROCEDURES Mel l Result documented in this encounter Visit Diagnoses Diagnosis Encounter for screening mammogram for malignant neoplasm of breast documented in this encounter
--- OUTSIDE RECORDS SUMMARY | 2024-06-25 22:39 | XMS_ITS | Encounter Summary ---
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 Gender Identity Not on file Sexual Orientation Straight 02/19/2021 9: 29 AM CDT documented as of this encounter Plan of Treatment Not on file documented as of this encounter Procedures Procedure Name Priority Date/Time Associated Diagnosis Comments MISCELLANEOUS TEST SENDOUT CHEMISTRY Routine Gen Lab 09/10/2016 8:19 AM DAM WORKER documented in this encounter Results * Miscellaneous Test Sendout Chemistry (09/10/2016 8:19 AM DAM WORKER) Test name Pancreastatin [facility] Result 1 Test Name: Pancreastatin Specimen Type: BLOOD Supplemental Comments: _ Result: 301 Units: pg/ml Reference Range:0- 88 This test was developed and its performance characteristics determined by the performing reference laboratory in a manner consistent with CLIA requirements. ??This test has not been cleared or approved by the U.S. Food and Drug Administration. [facility] Sendout reference lab Testing performed by: [place] [facility] Blood specimen (specimen) 09/10/2016 8:19 AM DAM WORKER 09/10/2016 8:40 AM DAM WORKER us Eren Cr MD LAB BLOOD ORDERABLES Edited R esult - Final [facility] Department [place] [address] documented in this encounter Visit Diagnoses Not on filedocumented in this encounter Care Teams Plywood Matcher Relationship Specialty Start Date End Date Julio César Briseno MD PCP - General 10/01/16 documented as of this encounter
--- OUTSIDE RECORDS SUMMARY | 2024-06-25 22:39 | XMS_ITS | Encounter Summary ---
Author Organization [facility] Care Team Providers Care Grill Attendant Name Role Phone Unavailable Primary Care Provider Unavailabl e Encounter Details Date Type Department Care Team (Late st Contact Info) Description 11/03/2015 - 11/03/2015 11:59 PM CDT Hospital Encounter [facility] Eren De Paz MD [address] [facility] [address] [place] [address] Social History Tobacco Use Types Packs/Day Years Used Date Smoking Tobacco: Never Assessed Comments Unknown Sex and Gender Information Value Date Recorded Sex Assigned at Not on file 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
--- OUTSIDE RECORDS SUMMARY | 2024-06-25 22:39 | XMS_ITS | Encounter Summary ---
Author Organization [facility] Healthcare Address [address] [place] [address] Care Team Providers Care Senior Windows Administrator Name Role Phone Julio César Briseno MD Primary Care Provider [phone] Encounter Details Date Type Department Care Team (Late st Contact Info) Description 12/31/2016 Orders Only [facility] Lab Interim [phone] Eren Cr MD [address] [facility] [address] [place], [place] [id number] Social History Tobacco Use Types Packs/Day Years Used Date Smoking Tobacco: Former Comments Unknown Sex and Gender Information Value Date Recorded Sex Assigned at Not on file 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 Gender Identity Not on file Sexual Orientation Straight 02/19/2021 9: 29 AM CDT documented as of this encounter Plan of Treatment Not on file documented as of this encounter Procedures Procedure Name Priority Date/Time Associated Diagnosis Comments CBC WITH AUTO DIFFERENTIAL Routine Gen Lab 12/31/2016 11:30 AM CDT documented in this encounter Results * (ABNORMAL) CBC with auto differential (12/31/2016 11:30 AM CDT) WBC 8.0 3.8 - 9.8 K/cumm [facility] RBC 5.04(H) 3.90 - 5.00 M/cumm [facility] Hgb 14.6 12.1 - 15.1 g/dL [facility] Hct 42.7 36.1 - 44.3 % [facility] Mean Cellular Volume - CAM 84.7 80.0 - 97.6 fL [facility] Mean Cellular Hemoglobin - CAM 28.9 26.7 - 33.7 pg [facility] Mean Cellular Hemoglobin Concentration - CAM 34.2 32.7 - 35.5 g/dL [facility] Rdw 14.0 11.8 - 14.6 % [facility] Plt 163 140 - 440 K/cumm [facility] Mean Platelet Volume - CAM 8.0 6.8 - 10.4 fL [facility] Neutrophil pct 47.9 38.7 - 74.5 % [facility] Lymphocyte pct 42.7 20.0 - 54.3 % [facility] Monos 7.2 4.3 - 13.5 % [facility] Eosinophil pct 1.2 0.0 - 6.0 % [facility] Basophil pct 1.0 0.0 - 3.0 % [facility] Neutrophil abs 3.8 1.8 - 6.6 K/cumm [facility] Lymphocyte abs 3.4(H) 1.2 - 3.3 K/cumm [facility] Monocyte abs 0.6 0.2 - 1.2 K/cumm [facility] Eosinophils, abs 0.1 0.0 - 0.5 K/cumm [facility] Basophil abs 0.1 0.0 - 0.2 K/cumm [facility] NRBC 0.1 0.0 - 0.2 % [facility] NRBC abs 0.00 0.00 - 0.01 K/cumm [facility] Blood specimen (specimen) 12/31/2016 11:30 AM CDT 12/31/2016 11:34 AM CDT Eren Cr MD LAB BLOOD ORDERABLES Final Re sult [facility] Department [place] [address] documented in this encounter Visit Diagnoses Not on filedocumented in this encounter Care Teams Senior Windows Administrator Relationship Specialty Start Date End Date Julio César Briseno MD PCP - General 10/01/16 documented as of this encounter
--- OUTSIDE RECORDS SUMMARY | 2024-06-25 22:39 | XMS_ITS | Encounter Summary ---
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 Analyte Specific Reagent: This test was developed and its performance characteristics determined by [facility]. It has not been cleared or approved by the U.S. Food and Drug Administration. ? Values obtained with different assay methods or kits may be different and cannot be used interchangeably. ? Test results cannot be interpreted as absolute evidence for the presence or absence of malignant disease. Test Performed by: [address] [address] Blood specimen (specimen) 12/31/2016 11:32 AM CDT 12/31/2016 1:30 PM CDT Eren Cr MD LAB BLOOD ORDERABLES Final Re sult [facility] Department [place] [address] documented in this encounter Visit Diagnoses Not on filedocumented in this encounter Care Teams Wood Tank Erector Relationship Specialty Start Date End Date Julio César Briseno MD PCP - General 10/01/16 documented as of this encounter
--- OUTSIDE RECORDS SUMMARY | 2024-06-25 22:39 | XMS_ITS | Encounter Summary ---
Author Organization [facility] Healthcare Address [address] [place] [address] Care Team Providers Care Air Press Operator Name Role Phone Julio César Briseno MD Primary Care Provider Encounter Details Date Type Department Care Team (Late st Contact Info) Description 2016 Orders Only [facility] [phone] Eren Cr MD [address] [facility] [address] [place], [place] [id number] Social History Tobacco Use Types Packs/Day Years Used Date Smoking Tobacco: Never Assessed Comments Unknown Sex and Gender Information Value Date Recorded Sex Assigned at Not on file 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 Gender Identity Not on file Sexual Orientation Straight 02/19/2021 9: 29 AM CDT documented as of this encounter Plan of Treatment Not on file documented as of this encounter Procedures Procedure Name Priority Date/Time Associated Diagnosis Comments CBC WITH AUTO DIFFERENTIAL Routine Gen Lab 2016 8:44 AM CDT documented in this encounter Results * (ABNORMAL) CBC with auto differential (2016 8:44 AM CDT) Pathologist [facility] [place] WBC 10.1(H) 3.8 - 9.8 K/cumm [facility] RBC 5.29(H) 3.90 - 5.00 M/cumm [facility] Hgb 15.2(H) 12.1 - 15.1 g/dL [facility] Hct 45.1(H) 36.1 - 44.3 % [facility] Mean Cellular Volume - CAM 85.2 80.0 - 97.6 fL [facility] Mean Cellular Hemoglobin - CAM 28.6 26.7 - 33.7 pg [facility] Mean Cellular Hemoglobin Concentration - CAM 33.6 32.7 - 35.5 g/dL [facility] Rdw 13.3 11.8 - 14.6 % [facility] Plt 178 140 - 440 K/cumm [facility] Mean Platelet Volume - CAM 8.2 6.8 - 10.4 fL [facility] Neutrophil pct 52.1 38.7 - 74.5 % [facility] Lymphocyte pct 40.1 20.0 - 54.3 % [facility] Monos 6.3 4.3 - 13.5 % [facility] Eosinophil pct 0.7 0.0 - 6.0 % [facility] Basophil pct 0.8 0.0 - 3.0 % [facility] Neutrophil abs 5.2 1.8 - 6.6 K/cumm [facility] Lymphocyte abs 4.0(H) 1.2 - 3.3 K/cumm [facility] Monocyte abs 0.6 0.2 - 1.2 K/cumm [facility] Eosinophils, abs 0.1 0.0 - 0.5 K/cumm [facility] Basophil abs 0.1 0.0 - 0.2 K/cumm [facility] Blood specimen (specimen) 2016 8:44 AM CDT 2016 8:45 AM CDT us Eren Cr MD LAB BLOOD ORDERABLES Final Re sult [facility] [place] [address] documented in this encounter Visit Diagnoses Not on filedocumented in this encounter Care Teams Air Press Operator Relationship Specialty Start Date End Date Julio César Briseno MD PCP - General 10/01/16 documented as of this encounter
--- OUTSIDE RECORDS SUMMARY | 2024-06-25 22:39 | XMS_ITS | Encounter Summary ---
Author Organization [facility] Facility Care Team Providers Care Weld Inspector Name Role Phone Unavailable Primary Care Provider Unavailabl e Encounter Details Date Type Department Care Team (Late st Contact Info) Description 04/18/2016 1:46 PM CDT - 04/18/2016 11:59 PM CDT Hospital Encounter [facility] Eren De Paz MD [address] [facility] [address] [place] [address] Other malignant neuroendocrine tumors (HCC); Other nonspecific abnormal finding of lung field; Atherosclerosis of aorta (CMS/HCC); Other manager intermediate (current) drug therapy; History of intestinal bypass; Acquired cyst of kidney; Acquired absence of both cervix and uterus Social History Tobacco Use Types Packs/Day Years Used Date Smoking Tobacco: Never Assessed Comments Unknown Sex and Gender Information Value Date Recorded Sex Assigned at Not on file 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 FINAL REPORT ACC# ??Date Time ??Exam [id number] Apr 18, 2016 14:23:[id number] Chest with contrast [id number] Apr 18, 2016 14:23:[id number] Abd & Pelvis with cont EXAMINATION: ?? 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 ??No immediate complications following intravenous contrast administration. COMPARISON: CT chest, abdomen and pelvis 01/13/2016 FINDINGS: CHEST: Lungs and large airways: The trachea and major bronchi are normal. There is an unchanged 5 mm nodule along the right major fissure (series 4, image 78, table position -310.8). There is also an unchanged 4 mm nodule in the right lower lobe (series 4, image 109, table position -372.8). There is minimal groundglass opacity in the azygoesophageal recess and right middle lobe, similar to the prior exam, likely representing atelectasis. There is no new focal consolidation or pulmonary nodule. Pleura: No pleural effusion. No pneumothorax. Heart and pericardium: Normal heart size. No pericardial effusion. Mediastinum and joey: No mediastinal, hilar or axillary lymphadenopathy. Subcentimeter mediastinal and right supraclavicular lymph nodes are not significantly changed since the prior exam. Vessels: Normal caliber great vessels. 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 No central pulmonary emboli. ABDOMEN AND PELVIS: Liver: There is a hypoattenuating lesion adjacent to segment 7 measuring 2.4 x 1.4 cm in maximal dimension (series 3, image 100 and series 3, image 63). There is no definite diaphragmatic breach. There are several other serosal deposits adjacent to segment 6 measuring 8 mm in maximal dimension (series 3, image 144), similar to the prior exam. Spleen: Normal size. No focal lesion. Pancreas: Normal. Gallbladder and biliary tree: Status post cholecystectomy. Mild intra and extrahepatic biliary ductal dilation is similar to the prior exam and likely relates to prior cholecystectomy. Adrenals: Normal. Kidneys and ureters: 2 cm exophytic cyst in the right upper pole, unchanged. No nephrolithiasis. No hydronephrosis. Bowel: Status post ileocolic resection, with ileocolic anastomosis in the right abdomen. Normal caliber. No wall thickening. There is colonic diverticulosis. There is mild stranding and nodularity of the sigmoid mesocolon ( i.e. series 3, image 250), similar to the prior exam. There is a large diverticulum extending from the third portion duodenum. Vessels: Portal venous system is patent. Hepatic veins are patent. Aorta is normal in caliber with atherosclerotic calcification. Lymph nodes: ? Retroperitoneal: No enlarged retroperitoneal lymph nodes. ? Mesenteric: No enlarged mesenteric lymph nodes. ? Pelvic: No enlarged pelvic lymph nodes. Peritoneum: There are multiple small omental nodules (i.e. Series 3, image 182), unchanged since the prior exam. There is no ascites or free air. Bladder: Incompletely distended. Reproductive organs: Patient status post hysterectomy. There is a 1.1 cm enhancing nodule along the right vaginal cuff (series 3, image 275) and an additional subcentimeter nodule adjacent to the left vaginal cuff (series 3, image 272), similar to the prior exam. Chest/abdominal wall: Normal. Bones: No suspicious osseous lesions. IMPRESSION: ?? 1. Hepatic serosal soft tissue deposits, not significantly changed since the prior exam. 2. Soft tissue deposits in the omentum, along the sigmoid mesocolon, and along the vaginal cuff, also not significantly changed, suspicious for metastatic disease. 3. Unchanged indeterminate pulmonary nodules. Requested By: Dictated By: ?? YVONNE TALAVERA M.D. ??on Apr 18 2016 ??3:00P This document has been electronically signed by: YVONNE TALAVERA M.D. on Apr 18 2016 ??3:00P [id number] Procedure Note Provider, MD Levon - 11/14/2016 YVONNE TALAVERA M.D. 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 No immediate complications following intravenous contrast administration. COMPARISON: CT chest, abdomen and pelvis 01/13/2016 FINDINGS: CHEST: Lungs and large airways: The trachea and major bronchi are normal. There is an unchanged 5 mm nodule along the right major fissure (series 4, image 78, table position -310.8). There is also an unchanged 4 mm nodule in the right lower lobe (series 4, image 109, table position -372.8). There is minimal groundglass opacity in the azygoesophageal recess and right middle lobe, similar to the prior exam, likely representing atelectasis. There is no new focal consolidation or pulmonary nodule. Pleura: No pleural effusion. No pneumothorax. Heart and pericardium: Normal heart size. No pericardial effusion. Mediastinum and joey: No mediastinal, hilar or axillary lymphadenopathy. Subcentimeter mediastinal and right supraclavicular lymph nodes are not significantly changed since the prior exam. Vessels: Normal caliber great vessels. 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 No central pulmonary emboli. ABDOMEN AND PELVIS: Liver: There is a hypoattenuating lesion adjacent to segment 7 measuring 2.4 x 1.4 cm in maximal dimension (series 3, image 100 and series 3, image 63). There is no definite diaphragmatic breach. There are several other serosal deposits adjacent to segment 6 measuring 8 mm in maximal dimension (series 3, image 144), similar to the prior exam. Spleen: Normal size. No focal lesion. Pancreas: Normal. Gallbladder and biliary tree: Status post cholecystectomy. Mild intra and extrahepatic biliary ductal dilation is similar to the prior exam and likely relates to prior cholecystectomy. Adrenals: Normal. Kidneys and ureters: 2 cm exophytic cyst in the right upper pole, unchanged. No nephrolithiasis. No hydronephrosis. Bowel: Status post ileocolic resection, with ileocolic anastomosis in the right abdomen. Normal caliber. No wall thickening. There is colonic diverticulosis. There is mild stranding and nodularity of the sigmoid mesocolon ( i.e. series 3, image 250), similar to the prior exam. There is a large diverticulum extending from the third portion duodenum. Vessels: Portal venous system is patent. Hepatic veins are patent. Aorta is normal in caliber with atherosclerotic calcification. Lymph nodes: Retroperitoneal: No enlarged retroperitoneal lymph nodes. Mesenteric: No enlarged mesenteric lymph nodes. Pelvic: No enlarged pelvic lymph nodes. Peritoneum: There are multiple small omental nodules (i.e. Series 3, image 182), unchanged since the prior exam. There is no ascites or free air. Bladder: Incompletely distended. Reproductive organs: Patient status post hysterectomy. There is a 1.1 cm enhancing nodule along the right vaginal cuff (series 3, image 275) and an additional subcentimeter nodule adjacent to the left vaginal cuff (series 3, image 272), similar to the prior exam. Chest/abdominal wall: Normal. Bones: No suspicious osseous lesions. IMPRESSION: 1. Hepatic serosal soft tissue deposits, not significantly changed since the prior exam. 2. Soft tissue deposits in the omentum, along the sigmoid mesocolon, and along the vaginal cuff, also not significantly changed, suspicious for metastatic disease. 3. Unchanged indeterminate pulmonary nodules. Requested By: Dictated By: YVONNE TALAVERA M.D. on Apr 18 2016 3:00P This document has been electronically signed by: YVONNE TALAVERA M.D. on Apr 18 2016 3:00P [id number] us Historical Provider MD ALONZO CT PROCEDURES Final R esult * CT Abdomen Pelvis W Contrast (04/18/2016 2:23 PM CDT) Anatomical Region Laterality Modality Body N/A Computed Tomogra phy 04/18/2016 2:23 PM CDT Narrative 04/18/2016 3:00 PM CDT YVONNE TALAVERA M.D. FINAL REPORT ACC# ??Date Time ??Exam [id number] Apr 18, 2016 14:23:[id number] Chest with contrast [id number] Apr 18, 2016 14:23:[id number] Abd & Pelvis with cont EXAMINATION: ?? 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 ??No immediate complications following intravenous contrast administration. COMPARISON: CT chest, abdomen and pelvis 01/13/2016 FINDINGS: CHEST: Lungs and large airways: The trachea and major bronchi are normal. There is an unchanged 5 mm nodule along the right major fissure (series 4, image 78, table position -310.8). There is also an unchanged 4 mm nodule in the right lower lobe (series 4, image 109, table position -372.8). There is minimal groundglass opacity in the azygoesophageal recess and right middle lobe, similar to the prior exam, likely representing atelectasis. There is no new focal consolidation or pulmonary nodule. Pleura: No pleural effusion. No pneumothorax. Heart and pericardium: Normal heart size. No pericardial effusion. Mediastinum and joey: No mediastinal, hilar or axillary lymphadenopathy. Subcentimeter mediastinal and right supraclavicular lymph nodes are not significantly changed since the prior exam. Vessels: Normal caliber great vessels. 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 No central pulmonary emboli. ABDOMEN AND PELVIS: Liver: There is a hypoattenuating lesion adjacent to segment 7 measuring 2.4 x 1.4 cm in maximal dimension (series 3, image 100 and series 3, image 63). There is no definite diaphragmatic breach. There are several other serosal deposits adjacent to segment 6 measuring 8 mm in maximal dimension (series 3, image 144), similar to the prior exam. Spleen: Normal size. No focal lesion. Pancreas: Normal. Gallbladder and biliary tree: Status post cholecystectomy. Mild intra and extrahepatic biliary ductal dilation is similar to the prior exam and likely relates to prior cholecystectomy. Adrenals: Normal. Kidneys and ureters: 2 cm exophytic cyst in the right upper pole, unchanged. No nephrolithiasis. No hydronephrosis. Bowel: Status post ileocolic resection, with ileocolic anastomosis in the right abdomen. Normal caliber. No wall thickening. There is colonic diverticulosis. There is mild stranding and nodularity of the sigmoid mesocolon ( i.e. series 3, image 250), similar to the prior exam. There is a large diverticulum extending from the third portion duodenum. Vessels: Portal venous system is patent. Hepatic veins are patent. Aorta is normal in caliber with atherosclerotic calcification. Lymph nodes: ? Retroperitoneal: No enlarged retroperitoneal lymph nodes. ? Mesenteric: No enlarged mesenteric lymph nodes. ? Pelvic: No enlarged pelvic lymph nodes. Peritoneum: There are multiple small omental nodules (i.e. Series 3, image 182), unchanged since the prior exam. There is no ascites or free air. Bladder: Incompletely distended. Reproductive organs: Patient status post hysterectomy. There is a 1.1 cm enhancing nodule along the right vaginal cuff (series 3, image 275) and an additional subcentimeter nodule adjacent to the left vaginal cuff (series 3, image 272), similar to the prior exam. Chest/abdominal wall: Normal. Bones: No suspicious osseous lesions. IMPRESSION: ?? 1. Hepatic serosal soft tissue deposits, not significantly changed since the prior exam. 2. Soft tissue deposits in the omentum, along the sigmoid mesocolon, and along the vaginal cuff, also not significantly changed, suspicious for metastatic disease. 3. Unchanged indeterminate pulmonary nodules. Requested By: Dictated By: ?? YVONNE TALAVERA M.D. ??on Apr 18 2016 ??3:00P This document has been electronically signed by: YVONNE TALAVERA M.D. on Apr 18 2016 ??3:00P [id number] Procedure Note Provider, MD Levon - 11/14/2016 YVONNE TALAVERA M.D. 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 No immediate complications following intravenous contrast administration. COMPARISON: CT chest, abdomen and pelvis 01/13/2016 FINDINGS: CHEST: Lungs and large airways: The trachea and major bronchi are normal. There is an unchanged 5 mm nodule along the right major fissure (series 4, image 78, table position -310.8). There is also an unchanged 4 mm nodule in the right lower lobe (series 4, image 109, table position -372.8). There is minimal groundglass opacity in the azygoesophageal recess and right middle lobe, similar to the prior exam, likely representing atelectasis. There is no new focal consolidation or pulmonary nodule. Pleura: No pleural effusion. No pneumothorax. Heart and pericardium: Normal heart size. No pericardial effusion. Mediastinum and joey: No mediastinal, hilar or axillary lymphadenopathy. Subcentimeter mediastinal and right supraclavicular lymph nodes are not significantly changed since the prior exam. Vessels: Normal caliber great vessels. 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 No central pulmonary emboli. ABDOMEN AND PELVIS: Liver: There is a hypoattenuating lesion adjacent to segment 7 measuring 2.4 x 1.4 cm in maximal dimension (series 3, image 100 and series 3, image 63). There is no definite diaphragmatic breach. There are several other serosal deposits adjacent to segment 6 measuring 8 mm in maximal dimension (series 3, image 144), similar to the prior exam. Spleen: Normal size. No focal lesion. Pancreas: Normal. Gallbladder and biliary tree: Status post cholecystectomy. Mild intra and extrahepatic biliary ductal dilation is similar to the prior exam and likely relates to prior cholecystectomy. Adrenals: Normal. Kidneys and ureters: 2 cm exophytic cyst in the right upper pole, unchanged. No nephrolithiasis. No hydronephrosis. Bowel: Status post ileocolic resection, with ileocolic anastomosis in the right abdomen. Normal caliber. No wall thickening. There is colonic diverticulosis. There is mild stranding and nodularity of the sigmoid mesocolon ( i.e. series 3, image 250), similar to the prior exam. There is a large diverticulum extending from the third portion duodenum. Vessels: Portal venous system is patent. Hepatic veins are patent. Aorta is normal in caliber with atherosclerotic calcification. Lymph nodes: Retroperitoneal: No enlarged retroperitoneal lymph nodes. Mesenteric: No enlarged mesenteric lymph nodes. Pelvic: No enlarged pelvic lymph nodes. Peritoneum: There are multiple small omental nodules (i.e. Series 3, image 182), unchanged since the prior exam. There is no ascites or free air. Bladder: Incompletely distended. Reproductive organs: Patient status post hysterectomy. There is a 1.1 cm enhancing nodule along the right vaginal cuff (series 3, image 275) and an additional subcentimeter nodule adjacent to the left vaginal cuff (series 3, image 272), similar to the prior exam. Chest/abdominal wall: Normal. Bones: No suspicious osseous lesions. IMPRESSION: 1. Hepatic serosal soft tissue deposits, not significantly changed since the prior exam. 2. Soft tissue deposits in the omentum, along the sigmoid mesocolon, and along the vaginal cuff, also not significantly changed, suspicious for metastatic disease. 3. Unchanged indeterminate pulmonary nodules. Requested By: Dictated By: YVONNE TALAVERA M.D. on Apr 18 2016 3:00P This document has been electronically signed by: YVONNE TALAVERA M.D. on Apr 18 2016 3:00P [id number] us Historical Provider MD ALONZO CT PROCEDURES Final R esult documented in this encounter Visit Diagnoses Diagnosis Other malignant neuroendocrine tumors (HCC) Other nonspecific abnormal finding of lung field Atherosclerosis of aorta (HCC) Atherosclerosis of aorta Other longterm (current) drug therapy History of intestinal bypass Intestinal bypass or anastomosis status Acquired cyst of kidney Acquired absence of both cervix and uterus documented in this encounter
--- OUTSIDE RECORDS SUMMARY | 2024-06-25 22:39 | XMS_ITS | Encounter Summary ---
Author Organization [facility] Healthcare Address [address] [place] [address] Care Team Providers Care Core Rescuer Name Role Phone Julio César Briseno MD Primary Care Provider Encounter Details Date Type Department Care Team (Late st Contact Info) Description 10/08/2016 Orders Only [facility] [phone] Eren Cr MD [id number] [facility] [id number] [place], [place] [id number] Social History Tobacco Use Types Packs/Day Years Used Date Smoking Tobacco: Never Assessed Comments Unknown Sex and Gender Information Value Date Recorded Sex Assigned at Not on file 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 RBC 4.99 3.90 - 5.00 M/cumm [facility] Hgb 14.2 12.1 - 15.1 g/dL [facility] Hct 42.6 36.1 - 44.3 % [facility] Mean Cellular Volume - CAM 85.4 80.0 - 97.6 fL [facility] Mean Cellular Hemoglobin - CAM 28.5 26.7 - 33.7 pg [facility] Mean Cellular Hemoglobin Concentration - CAM 33.4 32.7 - 35.5 g/dL [facility] Rdw 13.5 11.8 - 14.6 % [facility] Plt 151 140 - 440 K/cumm [facility] Mean Platelet Volume - CAM 8.7 6.8 - 10.4 fL [facility] Neutrophil pct 50.7 38.7 - 74.5 % [facility] Lymphocyte pct 41.7 20.0 - 54.3 % [facility] Monos 5.7 4.3 - 13.5 % [facility] Eosinophil pct 1.3 0.0 - 6.0 % [facility] Basophil pct 0.6 0.0 - 3.0 % [facility] Neutrophil abs 4.2 1.8 - 6.6 K/cumm [facility] Lymphocyte abs 3.5(H) 1.2 - 3.3 K/cumm [facility] Monocyte abs 0.5 0.2 - 1.2 K/cumm [facility] Eosinophils, abs 0.1 0.0 - 0.5 K/cumm [facility] Basophil abs 0.0 0.0 - 0.2 K/cumm [facility] Blood specimen (specimen) 10/08/2016 12:14 PM CDT 10/08/2016 12:18 PM CDT us Eren Cr MD LAB BLOOD ORDERABLES Final Re sult [facility] Department [place] [address] documented in this encounter Visit Diagnoses Not on filedocumented in this encounter Care Teams Core Rescuer Relationship Specialty Start Date End Date Julio César Briseno MD PCP - General 10/01/16 documented as of this encounter
--- OUTSIDE RECORDS SUMMARY | 2024-06-25 22:39 | XMS_ITS | Encounter Summary ---
Author Organization [facility] Facility Care Team Providers Care Log Roller Name Role Phone Unavailable Primary Care Provider Unavailabl e Encounter Details Date Type Department Care Team (Late st Contact Info) Description 10/03/2015 5:48 AM CDT - 10/06/2015 2:05 PM CDT Hospital Encounter [facility] Jasbir Alfonso MD [id number] [place], [place] [id number] Malignant carcinoid tumor of ileum (CMS/HCC); Secondary carcinoid tumors of other sites (HCC); Allergy status to other drugs, medicaments and biological substances status; Essential (primary) hypertension; Obesity; Body mass index (BMI) of 32.0-32.9 in adult; Gastro-esophageal reflux disease without esophagitis; Hyperlipidemia; Allergic rhinitis; Osteoarthritis; Presence of artificial knee joint; Acquired absence of both cervix and uterus; 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; 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 Social History Tobacco Use Types Packs/Day Years Used Date Smoking Tobacco: Never Assessed Comments Unknown Sex and Gender Information Value Date Recorded Sex Assigned at Not on file Legal 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 Gender Identity Not on file Sexual Orientation Straight 02/19/2021 9: 29 AM CDT documented as of this encounter Last Filed Vital Signs Vital Sign Reading Time Taken Comments Blood Pressure 129/59 10/06/2015 11:32 AM CDT Pulse 78 10/06/2015 11:32 AM CDT Temperature - - Respiratory Rate - - Oxygen Saturation 98% 10/06/2015 11: 32 AM CDT Inhaled Oxygen Concentration - - Weight 86.2 kg (189 lb 15.9 oz) 10/03/2015 2:36 PM CDT Height 160 cm (5' 3 ) 10/03/2015 2:36 PM CDT Body Mass Index 33.66 10/03/2015 2:36 PM CDT documented in this encounter Miscellaneous Notes * Op Note - Provider, MD Levon - 10/03/2015 12:00 AM CDT Patient: LA CHUNG Reg No: [id number] U H #: [id number] Admit Dt.: 10/03/2015 : 1950 Pt Type: [facility] Room No: [id number] Attending: Jasbir Reeves M.D. Surgeon: Jasbir Reeves M.D. Dictating: Laurie Saunders M.D. Service Dt: 10/03/2015 OPERATIVE REPORT Facility: [facility] ATTENDING PHYSICIAN/ATTENDING SURGEON: Jasbir Reeves M.D. FIRST MILITARY SOURCE OPERATIONS SPECIALIST: Laurie Saunders M.D. SECOND/THIRD MILITARY SOURCE OPERATIONS SPECIALIST: Shanika Rodriguez M.D. ANESTHESIA: General endotracheal anesthesia. PREOPERATIVE DIAGNOSIS (ES): 1. Bilateral adnexal masses. 2. Normal CA-125 at 11.8. 3. Calcified ileocecal mass. 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 NAME OF OPERATION: Examination under anesthesia, exploratory laparotomy, bilateral salpingo-oophorectomy and partial omentectomy, and peritoneal biopsies. INDICATIONS FOR PROCEDURE: Mrs. Chung is a pleasant 64-year-old female who is referred to Dr. Jasbir Reeves by Dr. Julio César Briseno due to right adnexal mass. The patient has a history of hysterectomy done many years prior and recently started having a little bit of pelvic discomfort and therefore, computed tomography abdomen and pelvis was performed. Computed tomography scan was significant for bilateral ovarian enhancing solid masses that are suspicious for metastatic disease versus primary ovarian neoplasms. Computed tomography scan also showed a calcified enhancing mass in the terminal ileum involving the ileocecal junction and appendix that is suspicious for primary carcinoid tumor. Due to these findings the patient also underwent consultation with colorectal surgeon, Dr. Greyson Reeves who was also involved in her surgery. Tumor markers showed CA-125 of 11.8, CA19-9 less than 10, and CA less than 1. The patient also had a recent colonoscopy that was unremarkable. Given these findings we recommend surgical exploration with removal of bilateral adnexal masses as well as ileocecal mass. Risks, benefits, and alternatives of the procedure were discussed with the patient. She decided to proceed with surgery. OPERATIVE FINDINGS: On examination under anesthesia the patient was noted to have a pelvic mass that was adherent to the vaginal cuff on bimanual exam. On exploratory laparotomy the patient was noted to have an approximately 8 to 10 centimeter right adnexal mass that was solid. She was also noted to have a multilobe solid left adnexal mass that was densely adherent to the vaginal cuff. Both these masses returned as metastatic carcinoma on frozen section. The patient was also noted to have a solid mass in the terminal ileum as well as second smaller mass in the lumen of the ileum approximately 10 centimeters away from ileocecal junction. The patient also had peritoneal deposits in the right pelvis. Rectosigmoid showed evidence of diverticular disease with dense adhesions to the pelvic sidewall as well as the left adnexa. Omentum was with small nodules that were soft and likely reactive inflammation. DESCRIPTION OF PROCEDURE: After obtaining informed consent the patient was taken to the operating room on October 03, 2015. General endotracheal anesthesia was induced without difficulty and noted to be adequate. The patient was given ertapenem for preoperative antibiotics. Sequential compression devices were placed on bilateral calves for deep venous thrombosis prophylaxis. The patient was then prepped and draped in the normal sterile fashion in dorsal lithotomy position in [facility]. Vagina had been prepped and Masterson catheter was placed with sterile technique. A sponge stick was placed in the vagina. Surgeons scrubbed and then attention was turned to the abdomen. A vertical skin incision was made from the pubic symphysis up to the level of the umbilicus. Underlying tissues were dissected using electrocautery. Fascia was identified and then in the midline using electrocautery. Fascial incision was extended superiorly and inferiorly. Peritoneum was then identified and grasped with Burlisher clamps and entered sharply using Metzenbaum scissors. Peritoneal incision was extended superiorly and inferiorly using electrocautery. Upon entry into the abdomen the above-mentioned findings were noted. Tita retractor was then placed and bladder blade was placed. Bowel was packed into the upper abdomen. The patient had two nodular deposits on the right pelvic peritoneum. These were grasped with DeBakey's and from the underlying peritoneum using electrocautery. The pelvic peritoneum was entered on the right side and retroperitoneal space was developed bluntly. The right ureter was identified and peristalsis was noted. A hematoma was noted in the area of the right infundibulopelvic ligament. Infundibulopelvic ligament with ovarian vessels were eventually isolated and then clamped times two, cut, and then ligated times two with 0 Vicryl free ties. The peritoneum above the level of the ureter was dissected using electrocautery. Remnants of the right round ligament as well as the right utero-ovarian ligament was identified and then clamped times two and cut. Right tube and ovary was sent for frozen section. The proximal pedicle was then ligated with 0 Vicryl. Attention was then turned to the left side where the left pelvic peritoneum was dissected using electrocautery. Peritoneum was then dissected parallel and lateral to the left infundibulopelvic ligament. Retroperitoneal space was dissected bluntly and left ureter was identified. A window was made in the avascular plane above the left ureter and left infundibulopelvic ligament was clamped, cut, and ligated times two. The peritoneum above the level of the ureter was dissected down into the pelvis. This left adnexal mass was densely adherent to the vaginal cuff. Vaginal cuff was identified by applying pressure on the sponge stick that was placed in the vagina. The left tube and ovary was bluntly dissected off of the vaginal cuff and the pelvic peritoneum. The remnants of the left round and utero-ovarian ligament was identified and then clamped with Elissa clamps. The left tube and ovary was amputated and sent for frozen section and the pedicle was ligated using a mrop-vpm-pln 0 Vicryl suture. Some bleeding was noted on the right side of the pelvis. Due to this the right ureter was carefully followed and dissected away from the area of bleeding. Uterine vein was identified that was bleeding and was grasped with Allis clamps and then a [id number]-[id number] suture was placed with 3-0 Vicryl. A few medium clips were also placed in order to gain hemostasis. Another area of bleeding was noted in the left pelvis that was grasped with an Allis clamp and then a 3-0 Vicryl vozber-wq-bybpa suture was placed to gain hemostasis. At this time, Dr. Greyson Reeves was called into the operating room for ileocecal resection and re-anastomosis. Please see his dictation for further details about that part of the surgery. After Dr. Greyson Reeves completed his part of the surgery we scrubbed again. Partial omentectomy was performed using Elissa clamps by clamping, cutting, and ligating proximal omentum with 0 Vicryl free ties. Omentum was noted to be hemostatic. A small area of omentum was saved in order to place over the reanastomosis for protection. The bowel was then returned to the normal anatomic position and the omentum was placed over the bowel for protection. Clean closure was then performed where all surgeons and scrub techs changed their scrub gowns and gloves. Incision was reprepped with Betadine. Antibiotic solution was used to irrigate the abdomen and pelvis. The fascia was then closed with 0 looped PDS in a running fashion starting superiorly and inferiorly and tying in the midline. Subcutaneous tissues were irrigated using antibiotic solution. Subcutaneous tissues were reapproximated using 3-0 plain gut. The skin was then closed with mary and sterile dressing was applied. A #19 Chicho drain was also placed intraperitoneally in the pelvis with the Chicho drain coming out from the left lower quadrant. Instrument, needle and laparotomy sponge counts were correct times two at both the tables open for the procedure and then the table open for clean closure. The patient was taken out of dorsal lithotomy and placed in supine position. She was awakened from anesthesia and then taken to the recovery room in stable condition. Skin had been closed with mary. SPECIMENS REMOVED: 1. Pelvic washings. 2. Bilateral tubes and ovaries. 3. Right pelvic peritoneal deposits. 4. Omentum. ESTIMATED BLOOD LOSS: Estimated blood loss 1100 milliliters. INTRAOPERATIVE FLUIDS: 4500 milliliters of crystalloid and 750 milliliters colloid. BLOOD PRODUCTS: Two units packed red blood cells. URINE OUTPUT: Urine output was 200 milliliters clear urine output was noted at the end of the procedure. SPONGE/INSTRUMENT/NEEDLE COUNTS: Correct. CONDITION ON DISCHARGE FROM OPERATING ROOM: COMPLICATIONS: None. ATTESTATION OF PRESENCE: Dr. Jasbir Reeves was present and directly participated in our part of the procedure that is dictated above. Edited by: Laurie Saunders MD On 10/05/2015 09:49 AM CDT Electronically Authenticated and Edited by: Laurie Saunders MD On 10/05/2015 09:50 AM CDT Electronically Authenticated and Edited by: Jasbir Reeves MD On 10/19/2015 06:26 PM CDT Laurie Saunders M.D. Jasbir Reeves M.D. PSB:silvana #[id number] Editing MT: silvana TD: 10/04/2015 10:11 AM cc: Chapito Gonzlaes M.D. * Op Note - Provider, MD Levon - 10/03/2015 12:00 AM CDT Patient: LA CHUNG Reg No: [id number] U H #: [id number] Admit Dt.: 10/03/2015 : 1950 Pt Type: [facility] Room No: [id number] Attending: Jasbir Reeves M.D. Surgeon: Greyson Reeves M.D. Dictating: Greyson Reeves M.D. Service Dt: 10/03/2015 OPERATIVE REPORT FACILITY: [facility] CO-SURGEON: Jasbir Reeves M.D. ANESTHESIA: General per endotracheal tube. PREOPERATIVE DIAGNOSIS (ES): 1. Pelvic mass. 2. Mesenteric mass. POSTOPERATIVE DIAGNOSIS (ES): Most likely malignant carcinoid tumor. NAME OF OPERATION: 1. Bilateral oophorectomy, please see Dr. Jasbir Reeves's operative note for details. 2. Right colectomy. INDICATIONS FOR PROCEDURE: The patient is a 64-year-old woman with abnormal imaging that showed bilateral adnexal masses and a lesion within her terminal ileum. Coloscopy showed no evidence of any intraluminal disease. Therefore, it was elected to bring her to the operating room for an exploratory laparotomy. OPERATIVE FINDINGS: Bilateral ovarian lesions. Frozen section showed evidence of either a carcinoid tumor or a Dave's tumor. There was a primary mass within the terminal ileal mesentery right on the mesenteric border and there were several other apparent implants along the small bowel. DESCRIPTION OF PROCEDURE: At the time that I came to the operating room, the ovaries had been removed. The abdomen was opened and we began mobilization of the right colon. We eviscerated the small bowel exposing the posterior aspect and the peritoneum was then incised allowing us to break into the retroperitoneal plane. The duodenum was then identify and reflected into the retroperitoneum. At just above the pelvic brim where the primary tumor in the small bowel was, this was densely adherent to the retroperitoneum. Therefore, this was initially left alone. From the posterior aspect, we were able to mobilize in a medial to lateral direction elevating the right colon mesentery off the retroperitoneum from the mid ascending colon all the way up to the hepatic flexure and to the mid transverse colon. We then identified our distal site of transection on the transverse colon, as we divided the greater omentum between clamps, tying with 0 Vicryl ties, and we then eventually entered the lesser sac and divided the lesser sac with the use of electrocautery. This once again allowed us access into the retroperitoneum and we were able to access our posterior plane of dissection and the hepatic flexure was then completely mobilized. We then continued to divide the lateral attachments heading down towards the cecum as we once again then encountered the terminal ileal mass. At this point in time, we were able to isolate the right branch of the middle colic vessel. This was then divided between clamps and tied with 0 Vicryl ties and we divided the remaining portion of the transverse colon mesentery between clamps tying with 0 Vicryl ties and the transverse colon was then divided with the firing of an 80 mm JED stapler. This then allowed us access to the ileocolic vessel. This was then isolated at its origin and divided between clamps and tied with 0 Vicryl ties. We were then able to identify the right ureter, as this was clearly medial to the mass and we were then able to take a piece of retroperitoneum along with the mass to ensure an adequate margin. We then identified our proximal site of transection as the remaining portion of the terminal ileum mesentery, was then divided between clamps and tied with 0 Vicryl ties. We then divided the bowel with the firing of an 80 mm JED stapler. The specimen was then removed and we then created our anastomosis as we excised the antimesenteric corner of each staple line and then anastomosis was then created with a firing of an 80 mm JED stapler. A vhkv-tq-aadv, functional end-to-end anastomosis was created in imkcgrfdzwzkmp-lr-alqmbjhrfnwiez fashion. Resulting enterotomy was reapproximated offsetting longitudinal staple lines. This was then closed with a firing of the 60 mL TL stapler. Crotch stitch was then placed in the apex of the longitudinal staple line with a 3-0 Vicryl suture and the anastomosis then returned to the abdomen. At this point in time, Dr. Jasbir Reeves and his team came back in to complete their portion of the case and closed the abdomen. Please see his operative note for details. SPECIMENS REMOVED: Right colon. SPONGE/INSTRUMENT/NEEDLE COUNTS: Please see Dr. Jasbir Reeves's operative note. ATTESTATION OF PRESENCE: Of note, I, Dr. Greyson Reeves, was present for my entire portion of the case. Electronically Authenticated by: Greyson Reeves MD On 10/14/2015 07:40 AM CDT Chapito Stevens:michaelle #[id number] Editing MT: michaelle TD: 10/04/2015 05:29 PM cc: Chapito Stevens M.D. documented in this encounter Plan of Treatment Not on file documented as of this encounter Procedures Procedure Name Priority Date/Time Associated Diagnosis Comments DISCHARGE LABORATORY CUMULATIVE REPORT 10/06/2015 SERUM MAGNESIUM Routine 10/05/2015 11:11 PM CDT PLASMA PHOSPHORUS Routine 10/05/2015 11: 11 PM CDT PLASMA BASIC METABOLIC PANEL Routine 10/05/2015 11:11 PM CDT BLOOD CELL COUNT Routine 10/05/2015 11:1 1 PM CDT SERUM MAGNESIUM Routine 10/04/2015 9:27 PM CDT PLASMA PHOSPHORUS Routine 10/04/2015 9:2 7 PM CDT PLASMA BASIC METABOLIC PANEL Routine 10/04/2015 9:27 PM CDT BLOOD CELL COUNT (CBC) Routine 6 9:27 PM CDT BLOOD CELL MORPHOLOGIC EXAM Routine 10/04/2015 9:27 PM CDT SERUM MAGNESIUM Routine 10/03/2015 10:52 PM CDT SERUM ALBUMIN Routine 10/03/2015 10:52 PM CDT PLASMA PHOSPHORUS Routine 10/03/2015 10: 52 PM CDT PLASMA BASIC METABOLIC PANEL Routine 10/03/2015 10:52 PM CDT BLOOD CELL COUNT Routine 10/03/2015 10:5 2 PM CDT BLOOD GAS, POINT OF CARE, VENOUS Routine 10/03/2015 10:08 AM CDT BLOOD GAS, POINT OF CARE, ARTERIAL Routine 10/03/2015 8:21 AM CDT SERUM CA 19-9 AG Routine 10/03/2015 7:5 0 AM CDT SERUM CA 125 AG Routine 10/03/2015 7:50 AM CDT PLASMA CARCINOEMBRYONIC AG (CEA) Routine 10/03/2015 7:50 AM CDT BLOOD ABO, RH, INDIRECT AB SCREEN Routine 10/03/2015 6:00 AM CDT CYTOLOGY 10/03/2015 SURGICAL PATHOLOGY 10/03/2015 documented in this encounter Results * DISCHARGE LABORATORY CUMULATIVE REPORT (10/06/2015) Narrative 10/06/2015 Ordered by an unspecified provider. us Historical Provider LAB BLOOD ORDERABLES Mel l Result * (ABNORMAL) Plasma basic metabolic panel (10/05/2015 11:11 PM CDT) Sodium 139 135 - 145 mmol/L HISTORICAL RESULTS K, pl 3.9 3.3 - 4.9 mmol/L HISTORICAL RESULTS Chloride 109 97 - 110 mmol/L HISTORICAL RESULTS CO2 20(L) 22 - 32 mmol/L HISTORICAL RESULTS A. gap 10 0 - 16 mmol/L HISTORICAL RESULTS Glucose 103 70 - 199 mg/dl HISTORICAL RESULTS BUN 11 8 - 25 mg/dl HISTORICAL RESULTS Creatinine 0.85 0.60 - 1.10 mg/dl HISTORICAL RESULTS Calcium 9.6 8.6 - 10.3 mg/dl HISTORICAL RESULTS Plasma 10/05/2015 11:1 1 PM CDT Meagan Galleogs MD LAB BLOOD ORDERABLES Final Result HISTORICAL RESULTS * (ABNORMAL) Plasma phosphorus (10/05/2015 11:11 PM CDT) Phosphorus, pl 2.1(L) 2.3 - 4.3 mg/dl HISTORICAL RESULTS Plasma 10/05/2015 11:1 1 PM CDT Meagan Gallegos MD LAB BLOOD ORDERABLES Final Result HISTORICAL RESULTS * Serum magnesium (10/05/2015 11:11 PM CDT) Pathologist [facility] Magnesium 1.9 1.4 - 2.5 mg/dl HISTORICAL RESULTS Serum 10/05/2015 11:1 1 PM CDT Meagan Gallegos MD LAB BLOOD ORDERABLES Final Result Performing Organization Address City/[facility] [address]/[facility] Co de Phone Number HISTORICAL RESULTS * (ABNORMAL) Blood cell count [CBC] express (10/05/2015 11:11 PM CDT) Pathologist [facility] WBC 10.1(H) 3.8 - 9.9 K/cumm HISTORICAL RESULTS RBC 3.26(L) 3.90 - 5.20 M/cumm HISTORICAL RESULTS Hgb 9.5(L) 11.9 - 15.5 g/dl HISTORICAL RESULTS Hct 28.2(L) 35.6 - 45.5 % HISTORICAL RESULTS MCV 86.5 81.3 - 96.4 fl HISTORICAL RESULTS Comment:{MCV delta due to po ssible patient therapy} MCH 29.1 27.1 - 33.3 pg HISTORICAL RESULTS MCHC 33.7 32.3 - 35.7 g/dl HISTORICAL RESULTS Rdw 14.2 11.1 - 14.9 % HISTORICAL RESULTS RDW 44.4 35.7 - 48.1 fl HISTORICAL RESULTS NRBC 0.0 0.0 - 0.2 % HISTORICAL RESULTS NRBC, abs 0.00 0.00 - 0.01 K/cumm HISTORICAL RESULTS Platelets 121(L) 150 - 400 K/cumm HISTORICAL RESULTS MPV 12.0 9.1 - 12.3 fl HISTORICAL RESULTS Blood specimen (specimen) 10/05/2015 11:11 PM CDT Meagan Gallegos MD LAB BLOOD ORDERABLES Final Result HISTORICAL RESULTS * (ABNORMAL) Plasma basic metabolic panel (10/04/2015 9:27 PM CDT) Pathologist [facility] Sodium 134(L) 135 - 145 mmol/L HISTORICAL RESULTS K, pl 4.2 3.3 - 4.9 mmol/L HISTORICAL RESULTS Chloride 113(H) 97 - 110 mmol/L HISTORICAL RESULTS CO2 17(L) 22 - 32 mmol/L HISTORICAL RESULTS A. gap 4 0 - 16 mmol/L HISTORICAL RESULTS Glucose 112 70 - 199 mg/dl HISTORICAL RESULTS BUN 11 8 - 25 mg/dl HISTORICAL RESULTS Creatinine 0.76 0.60 - 1.10 mg/dl HISTORICAL RESULTS Calcium 8.9 8.6 - 10.3 mg/dl HISTORICAL RESULTS Plasma 10/04/2015 9:27 PM CDT Meagan Gallegos MD LAB BLOOD ORDERABLES Final Result Performing Organization Address [facility] [address]/[facility] de Phone Number HISTORICAL RESULTS * (ABNORMAL) Plasma phosphorus (10/04/2015 9:27 PM CDT) Pathologist [facility] Phosphorus, pl 1.6(L) 2.3 - 4.3 mg/dl HISTORICAL RESULTS Plasma 10/04/2015 9:27 PM CDT Meagan Gallegos MD LAB BLOOD ORDERABLES Final Result Performing Organization Address [facility] [address]/[facility] de Phone Number HISTORICAL RESULTS * Serum magnesium (10/04/2015 9:27 PM CDT) Pathologist [facility] Magnesium 2.3 1.4 - 2.5 mg/dl HISTORICAL RESULTS Serum 10/04/2015 9:27 PM CDT Meagan Gallegos MD LAB BLOOD ORDERABLES Final Result Performing Organization Address [facility] [address]/[facility] de Phone Number HISTORICAL RESULTS * (ABNORMAL) Blood cell count (CBC) (10/04/2015 9:27 PM CDT) WBC 8.7 3.8 - 9.9 K/cumm HISTORICAL RESULTS RBC 3.25(L) 3.90 - 5.20 M/cumm HISTORICAL RESULTS Hgb 9.5(L) 11.9 - 15.5 g/dl HISTORICAL RESULTS Hct 29.8(L) 35.6 - 45.5 % HISTORICAL RESULTS MCV 91.7 81.3 - 96.4 fl HISTORICAL RESULTS MCH 29.2 27.1 - 33.3 pg HISTORICAL RESULTS MCHC 31.9(L) 32.3 - 35.7 g/dl HISTORICAL RESULTS Rdw 14.2 11.1 - 14.9 % HISTORICAL RESULTS RDW 47.9 35.7 - 48.1 fl HISTORICAL RESULTS Platelets 94(L) 150 - 400 K/cumm HISTORICAL RESULTS MPV 11.7 9.1 - 12.3 fl HISTORICAL RESULTS NRBC 0.0 0.0 - 0.2 % HISTORIC AL RESULTS NRBC, abs 0.00 0.00 - 0.01 K/cumm HISTORICAL RESULTS Blood specimen (specimen) 10/04/2015 9:27 PM CDT Meagan Gallegos MD LAB BLOOD ORDERABLES Final Result Performing Organization Address [facility] [address]/[facility] de Phone Number HISTORICAL RESULTS * (ABNORMAL) Blood cell morphologic exam (10/04/2015 9:27 PM CDT) Neutrophils 67.9 % HISTORIC AL RESULTS Immature granulocytes 0.3 % HISTORICAL RESULTS Lymphocytes 19.5 % HISTORIC AL RESULTS Monos 11.2 % HISTORICAL RESULTS Eosinophils 0.8 % HISTORIC AL RESULTS Basophils 0.3 % HISTORICAL RESULTS Neutrophils, abs 5.9 1.7 - 6.5 K/cumm HISTORICAL RESULTS Immature granulocyte, abs 0.03 0.00 - 0.10 K/cumm HISTORICAL RESULTS Lymphocytes, abs 1.7 0.8 - 3.3 K/cumm HISTORICAL RESULTS Monocytes, absolute 1.0(H) 0.2 - 0.8 K/cumm HISTORICAL RESULTS Eosinophils, abs 0.1 0.0 - 0.5 K/cumm HISTORICAL RESULTS Basophils, abs 0.0 0.0 - 0.1 K/cumm HISTORICAL RESULTS Blood specimen (specimen) 10/04/2015 9:27 PM CDT Meagan Gallegos MD LAB BLOOD ORDERABLES Final Result Performing Organization Address [facility] [address]/[facility] de Phone Number HISTORICAL RESULTS * (ABNORMAL) Plasma basic metabolic panel (10/03/2015 10:52 PM CDT) Sodium 138 135 - 145 mmol/L HISTORICAL RESULTS K, pl 4.2 3.3 - 4.9 mmol/L HISTORICAL RESULTS Chloride 111(H) 97 - 110 mmol/L HISTORICAL RESULTS CO2 20(L) 22 - 32 mmol/L HISTORICAL RESULTS A. gap 7 0 - 16 mmol/L HISTORICAL RESULTS Glucose 142 70 - 199 mg/dl HISTORICAL RESULTS BUN 10 8 - 25 mg/dl HISTORICAL RESULTS Creatinine 0.64 0.60 - 1.10 mg/dl HISTORICAL RESULTS Calcium 7.8(L) 8.6 - 10.3 mg/dl HISTORICAL RESULTS Plasma 10/03/2015 10:5 2 PM CDT Shanika Rodriguez MD LAB BLOOD ORDERABLES Mel l Result Performing Organization Address City/[facility] [address]/[facility] Co de Phone Number HISTORICAL RESULTS * Plasma phosphorus (10/03/2015 10:52 PM CDT) Phosphorus, pl 2.4 2.3 - 4.3 mg/dl HISTORICAL RESULTS Plasma 10/03/2015 10:5 2 PM CDT Shaniak Rodriguez MD LAB BLOOD ORDERABLES Mel l Result Performing Organization Address [facility] [address]/[facility] Co de Phone Number HISTORICAL RESULTS * (ABNORMAL) Serum albumin (10/03/2015 10:52 PM CDT) Alb 3.3(L) 3.6 - 5.0 g/dl HISTORICAL RESULTS Serum 10/03/2015 10:5 2 PM CDT Shanika Rodriguez MD LAB BLOOD ORDERABLES Mel l Result HISTORICAL RESULTS * Serum magnesium (10/03/2015 10:52 PM CDT) Magnesium 1.4 1.4 - 2.5 mg/dl HISTORICAL RESULTS Serum 10/03/2015 10:5 2 PM CDT Shanika Rodriguez MD LAB BLOOD ORDERABLES Mel l Result Performing Organization Address [facility] [address]/[facility] de Phone Number HISTORICAL RESULTS * (ABNORMAL) Blood cell count [CBC] express (10/03/2015 10:52 PM CDT) WBC 11.7(H) 3.8 - 9.8 K/cumm HISTORICAL RESULTS RBC 3.78(L) 3.90 - 5.00 M/cumm HISTORICAL RESULTS Hgb 11.1(L) 12.1 - 15.1 g/dl HISTORICAL RESULTS Hct 33.1(L) 36.1 - 44.3 % HISTORICAL RESULTS MCV 87.4 80.0 - 97.6 fl HISTORICAL RESULTS MCH 29.3 26.7 - 33.7 pg HISTORICAL RESULTS MCHC 33.5 32.7 - 35.5 g/dl HISTORICAL RESULTS Rdw 13.8 11.8 - 14.6 % HISTORICAL RESULTS Platelets 124(L) 140 - 440 K/cumm HISTORICAL RESULTS MPV 9.9 6.8 - 10.4 fl HISTORICAL RESULTS Blood specimen (specimen) 10/03/2015 10:52 PM CDT Shanika Rodriguez MD LAB BLOOD ORDERABLES Mel l Result Performing Organization Address [facility] [address]/[facility] de Phone Number HISTORICAL RESULTS * (ABNORMAL) Blood gas, point of care, venous (10/03/2015 10:08 AM CDT) pH, elida 7.33 HISTORICAL RESULTS PCO2, elida 35 mm Hg HISTORICAL RESULTS PO2, elida 290 mm Hg HISTORICAL RESULTS Sodium, bld 139 135 - 145 mmol/L HISTORICAL RESULTS Potassium, bld 3.5 3.3 - 4.9 mmol/L HISTORICAL RESULTS Ca, ionized, bld 4.77 4.50 - 5.10 mg/dl HISTORICAL RESULTS Hct 25.0(L) 36.1 - 44.3 % HISTORICAL RESULTS Glu, art 123 70 - 199 mg/dl HISTORICAL RESULTS HCO3, elida 19(L) 20 - 30 mmol/L HISTORICAL RESULTS CO2, elida, calc 20(L) 22 - 32 mmol/L HISTORICAL RESULTS BE,elida -6.8 mmol/L HISTORICAL RESULTS Oxyhb, elida 100(H) 60 - 85 % HISTORICA L RESULTS Venous blood 10/03/2015 10:0 8 AM CDT Jasbir Reeves MD LAB BLOOD ORDERABLES Final Res ult Performing Organization Address [facility] [address]/[facility] Co de Phone Number HISTORICAL RESULTS * (ABNORMAL) Blood gas, point of care, arterial (10/03/2015 8:21 AM CDT) Ph, art 7.37 7.35 - 7.45 HISTORICAL RESULTS PCO2 41 35 - 45 mm Hg HISTORICAL RESULTS PO2, art 265(H) 80 - 105 mm Hg HISTORICAL RESULTS Sodium, bld 138 135 - 145 mmol/L HISTORICAL RESULTS Potassium, bld 3.8 3.3 - 4.9 mmol/L HISTORICAL RESULTS Ca, ionized, bld 5.41(H) 4.50 - 5.10 mg/dl HISTORICAL RESULTS Hct 42.0 36.1 - 44.3 % HISTORICAL RESULTS Glu, art 122 70 - 199 mg/dl HISTORICAL RESULTS HCO3, art 24 20 - 30 mmol/L HISTORICAL RESULTS CO2, calc, art 25 22 - 32 mmol/L HISTORICAL RESULTS BE, art -1.5 mmol/L HISTORICAL RESULTS O2 sat, art 100(H) 95 - 98 % HISTORIC AL RESULTS Arterial blood 10/03/2015 8: 21 AM CDT Result [facility] Jasbir Reeves MD LAB BLOOD ORDERABLES Final Res ult Performing Organization Address [facility] [address]/[facility] de Phone Number HISTORICAL RESULTS * Serum CA 19-9 ag (10/03/2015 7:50 AM CDT) CA 19-9 ag <10.0 0.0 - 36.0 Units/ml HISTORICAL RESULTS Serum 10/03/2015 7:50 AM CDT Jasbir Reeves MD LAB BLOOD ORDERABLES Final Res ult Performing Organization Address [facility] [address]/[facility] Co de Phone Number HISTORICAL RESULTS * Plasma carcinoembryonic ag (CEA) (10/03/2015 7:50 AM CDT) CEA <1.0 0.0 - 2.5 ng/ml HISTORICAL RESULTS Comment: Interpretive Data Reference Range: ? Non-Smokers: ??0 - 2.5 ng/mL ? Smokers: ?0 - 5.0 ng/mL ?? This test was developed and its performance characterisitics determined by the [facility] in a manner consistent with CLIA requirements. This test has not been cleared or approved by the [place].s. Food and Drug Administration. Current interpretive data was last revised 2011. Plasma 10/03/2015 7:50 AM CDT Jasbir Reeves MD LAB BLOOD ORDERABLES Final Res ult Performing Organization Address [facility] [address]/[facility] de Phone Number HISTORICAL RESULTS * Serum CA 125 ag (10/03/2015 7:50 AM CDT) CA 125 ag 11.8 0.0 - 30.0 Units/ml HISTORICAL RESULTS Serum 10/03/2015 7:50 AM CDT Jasbir Reeves MD LAB BLOOD ORDERABLES Final Res ult Performing Organization Address [facility] [address]/[facility] de Phone Number HISTORICAL RESULTS * Blood ABO, Rh, indirect ab screen (10/03/2015 6:00 AM CDT) Yolande, indirect Negative HISTORICAL RESULTS ABO, Rho(D) AB Positive HISTOR ICAL RESULTS Blood specimen (specimen) 10/03/2015 6:00 AM CDT Jasbir Reeves MD LAB BLOOD ORDERABLES Final Res ult Performing Organization Address [facility] [address]/[facility] de Phone Number HISTORICAL RESULTS * Surgical pathology (10/03/2015) Narrative 10/03/2015 Ordered by an unspecified provider. Historical Provider LAB PATHOLOGY ORDERABLES Final Result * Cytology (10/03/2015) Narrative 10/03/2015 Ordered by an unspecified provider. 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) Allergy status to other drugs, medicaments and biological substances status Essential (primary) hypertension Unspecified essential hypertension Obesity Obesity, unspecified Body mass index (BMI) of 32.0-32.9 in adult Gastro-esophageal reflux disease without esophagitis Hyperlipidemia Other and unspecified hyperlipidemia Allergic rhinitis Allergic rhinitis, cause unspecified Osteoarthritis Osteoarthrosis, unspecified whether generalized or localized, unspecified site Presence of artificial knee joint Acquired absence of both cervix and uterus 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
--- OUTSIDE RECORDS SUMMARY | 2024-06-25 22:39 | XMS_ITS | Encounter Summary ---
Author Organization [facility] Healthcare Address [address] [place] [address] Care Team Providers Care Aeronautical Engineering Technologist Name Role Phone Julio César Briseno MD Primary Care Provider [phone] Encounter Details Date Type Department Care Team (Late st Contact Info) Description 12/31/2016 Orders Only [facility] Inter[facility] [phone] Eren Cr MD [address] [facility] [id number] [place], [place] [id number] Social History Tobacco Use Types Packs/Day Years Used Date Smoking Tobacco: Former Comments Unknown Sex and Gender Information Value Date Recorded Sex Assigned at Not on file 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 Gender Identity Not on file Sexual Orientation Straight 02/19/2021 9: 29 AM CDT documented as of this encounter Plan of Treatment Not on file documented as of this encounter Procedures Procedure Name Priority Date/Time Associated Diagnosis Comments MISCELLANEOUS TEST SENDOUT CHEMISTRY Routine Gen Lab 12/31/2016 11:33 AM CDT documented in this encounter Results * Miscellaneous Test Sendout Chemistry (12/31/2016 11:33 AM CDT) Test name Pancreastatin [facility] Result 1 Test Name: Pancreastatin Specimen Type: blood Result: 404 Units: pg/mL Reference Range: 0-88 [facility] Sendout reference lab Testing performed by[facility] Blood specimen (specimen) 12/31/2016 11:33 AM CDT 12/31/2016 1:52 PM CDT us Eren Cr MD LAB BLOOD ORDERABLES Edited R esult - Final [facility] Department [place] [address] documented in this encounter Visit Diagnoses Not on filedocumented in this encounter Care Teams Aeronautical Engineering Technologist Relationship Specialty Start Date End Date Julio César Briseno MD PCP - General 10/01/16 documented as of this encounter
--- OUTSIDE RECORDS SUMMARY | 2024-06-25 22:39 | XMS_ITS | Encounter Summary ---
Author Organization [facility] Healthcare Address [address] [place] [address] Care Team Providers Care Calendering Machine Operator Name Role Phone Julio César Briseno MD Primary Care Provider [phone] Encounter Details Date Type Department Care Team (Late st Contact Info) Description 10/08/2016 8:32 AM CDT - 10/08/2016 11:59 PM CDT Hospital Encounter [facility] OP INTERIM [phone] Bailee Alcazar MD [address] [address] Discharge Disposition: Discharge to home or self care Social History Tobacco Use Types Packs/Day Years Used Date Smoking Tobacco: Never Assessed Comments Unknown Sex and Gender Information Value Date Recorded Sex Assigned at Not on file Legal Sex Female 2:41 PM [employer]TER [employer] Gender Identity Not on file Sexual Orientation Straight 02/19/2021 9: 29 AM CDT documented as of this encounter Medications at Time of Discharge ascorbic acid, vitamin C, 500 mg capsuleIndicatio ns:supplement Take 1 tablet by mouth plant operator helper before breakfast 07/04/2016 4 octreotide (SandoSTATIN) 50 mcg/mL (1 mL) syringe every 30 (thirty) days 04/09/2016 2 documented as of this encounter Discharge Disposition Disposition Code Departure Means Destination Discharge to home or self care documented in this encounter Plan of Treatment Not on file documented as of this encounter Procedures Procedure Name Priority Date/Time Associated Diagnosis Comments SCREENING MAMMOGRAM Routine 10/08/2016 2 :08 PM CDT documented in this encounter Results * Screening Mammogram (10/08/2016 2:08 PM CDT) Anatomical Region Laterality Modality Breast N/A Mammography 10/08/2016 2:08 PM CDT Narrative 10/08/2016 2:08 PM CDT MONO WHITLOCK M.D. FINAL REPORT ACC# ??Date Time ??Exam [id number] Oct 08, 2016 09:08:00 [facility] [id number] Scr Mamm kushal 2v w/KHANH ?? Technologist(s): Renetta Walsh; ; EXAMINATION: ??Mammogram Technique: Bilateral Digital Breast Tomosynthesis, Bilateral C-view 2D Screening mammogram. ??Views obtained: ??bilateral craniocaudal and bilateral mediolateral oblique. ??Computer Aided Detection was performed. Mammogram Findings: The present examination has been compared to prior imaging studies performed at [facility] on 06/28/2014 and 06/29/2015. There are scattered areas of fibroglandular density. There is no suspicious abnormality in either breast. IMPRESSION: ??Annual screening mammography is recommended. OVERALL FINAL ASSESSMENT: BI-RADS CATEGORY 1: ??Negative. Requested By: Bailee Alcazar ??MClarkD. ? Dictated By: ?? MONO WHITLOCK M.D. ??on Oct 15 2016 11:51A This document has been electronically signed by: MONO WHITLOCK M.D. on Oct 15 2016 11:51A [id number] Procedure Note Miscellaneous, Notinfile / Provider, MD Levon - 11/29/2016 MONO WHITLOCK M.D. FINAL REPORT ACC# Date Time Exam [id number] Oct 08, 2016 09:08:00 [facility] [id number] Scr Mamm kushal 2v w/KHANH Technologist(s): Renetta Walsh; ; EXAMINATION: Mammogram Technique: Bilateral Digital Breast Tomosynthesis, Bilateral C-view 2D Screening mammogram. Views obtained: bilateral craniocaudal and bilateral mediolateral oblique. Computer Aided Detection was performed. Mammogram Findings: The present examination has been compared to prior imaging studies performed at [facility] on 06/28/2014 and 06/29/2015. There are scattered areas of fibroglandular density. There is no suspicious abnormality in either breast. IMPRESSION: Annual screening mammography is recommended. OVERALL FINAL ASSESSMENT: BI-RADS CATEGORY 1: Negative. Requested By: Bailee Alcazar M.D. Dictated By: MONO WHITLOCK M.D. on Oct 15 2016 11:51A This document has been electronically signed by: MONO WHITLOCK M.D. on Oct 15 2016 11:51A [id number] us Not In File Miscellaneous IMG MAMMO PROCEDURES F inal Result documented in this encounter Visit Diagnoses Not on filedocumented in this encounter Care Teams Calendering Machine Operator Relationship Specialty Start Date End Date Julio César Briseno MD PCP - General 10/01/16 documented as of this encounter
--- OUTSIDE RECORDS SUMMARY | 2024-06-25 22:39 | XMS_ITS | Encounter Summary ---
Author Organization [facility] Facility Care Team Providers Care Air Quality Consultant Name Role Phone Unavailable Primary Care Provider Unavailabl e Encounter Details Date Type Department Care Team (Late st Contact Info) Description 08/24/2015 - 08/24/2015 11:59 PM TOE STAPLER [facility] [phone] [place] [id number] Social History Tobacco Use Types Packs/Day Years Used Date Smoking Tobacco: Never Assessed Comments Unknown Sex and Gender Information Value Date Recorded Sex Assigned at Not on file Legal 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 Female 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 Gender Identity Not on file Sexual Orientation Straight 02/19/2021 9: 29 AM CDT documented as of this encounter Plan of Treatment Not on file documented as of this encounter Procedures Procedure Name Priority Date/Time Associated Diagnosis Comments XR CONSULT OF OUTSIDE FILMS (PEDS ONLY) Routine 08/24/2015 12:32 PM TOE STAPLER CLINICAL IMAGE Routine 08/17/2015 9:17 AM TOE STAPLER documented in this encounter Results * XR Interpretation Of Outside Films (08/24/2015 12:32 PM TOE STAPLER) Anatomical Region Laterality Modality N/A Radiographic Gabbie ging 08/24/2015 12:3 2 PM TOE STAPLER Narrative 08/24/2015 3:29 PM TOE STAPLER KELECHI ZEPEDA D.O. KELECHI ZEPEDA D.O. FINAL REPORT The radiology attending physician has personally reviewed this study, and has reviewed and/or edited this written report and agrees with it. ACC# ??Date Time ??Exam [id number] Aug 24, 2015 12:32:00 [id number] [facility] Body CT Consult ACC# ??Date Time ??Exam [id number] Aug 24, 2015 12:32:00 [id number] [facility] Body CT Consult EXAMINATION: ?? RADIOLOGY CONSULTATION ON OUTSIDE IMAGING STUDY STUDY INITIALLY PERFORMED: ??08/17/2015 at [facility]. TYPE OF STUDY: Multiple CT images of the abdomen and pelvis with intravenous contrast are provided at the time of this interpretation. The protocol was adequate to address the clinical question. The outside final report was not available at the time of this second opinion interpretation. TYPE OF CONSULTATION: ??Consult on outside imaging study with images submitted through [facility] DATE OF CONSULTATION: 08/24/2015 HISTORY: ??Ovarian mass. COMPARISON: No prior studies are available for comparison. FINDINGS: The visualized lung bases are clear. The heart is normal in size. 1.0 cm hyper attenuating exophytic cyst is seen along hepatic segment 6 and may represent a hemorrhagic or proteinaceous perihepatic cyst. No other liver lesion. The gallbladder surgically absent. No intrahepatic or extrahepatic bile duct dilation. The pancreas and spleen are normal. Adrenals are normal. A 1.0 cm right renal cyst is seen. The kidneys are otherwise normal. No hydronephrosis. the urinary bladder is normal. A solid right ovarian mass is seen measuring 6.3 x 4.5 cm on position -644. Additionally a left ovarian mass is seen measuring 4.2 x 3.3 ??A 1.9 cm left ovarian or paraovarian cyst is also seen (SP -650). There is colonic diverticulosis without evidence of acute diverticulitis. A partially calcified mass is seen in in the region of the terminal ileum on slice position -738 which distorts the ileocecal valve and enhances with adjacent desmoplastic reaction. The distal appendix is seen however the mass may involve with proximal appendix. Scattered peritoneal nodules are seen for example measuring up to 0.6 cm on position 823. Additional tiny focus of nodularity seen on position -701. No enlarged pelvic, retroperitoneal or mesenteric lymphadenopathy. No soft tissue abnormality. No suspicious lytic or blastic osseous lesion. The hepatic veins and portal veins are patent. The abdominal aorta is normal in caliber. ?? IMPRESSION: 1. Calcified enhancing mass centered in the terminal ileum with possible involvement of the proximal appendix and adjacent desmoplastic raises suspicion for primary tumor such as carcinoid or possibly adenocarcinoma. 2. 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 3. Tiny nodules in the omentum may represent tumor deposits. The findings, conclusions and recommendations within this report do not replace the initial findings, conclusions ??and recommendations made at the facility where the study was performed based upon the imaging and clinical condition at that time. ??Comparison with the prior report and clinical history is necessary. ??The provided images may or may not represent the [place] source data set and thus may contain changes that may lower the accuracy of this second-opinion interpretation. ?? Requested By: Dictated By: ?? KELECHI ZEPEDA D.O. ??on Aug 24 2015 ??2:49P This document has been electronically signed by: KELECHI ZEPEDA D.O. on Aug 24 2015 ??3:29P [id number] Procedure Note Provider, MD Levon - 11/01/2016 KELECHI ZEPEDA D.O. KELECHI ZEPEDA D.O. FINAL REPORT The radiology attending physician has personally reviewed this study, and has reviewed and/or edited this written report and agrees with it. ACC# Date Time Exam [id number] Aug 24, 2015 12:32:00 [id number] [facility] Body CT Consult ACC# Date Time Exam [id number] Aug 24, 2015 12:32:00 [id number] [facility] Body CT Consult EXAMINATION: RADIOLOGY CONSULTATION ON OUTSIDE IMAGING STUDY STUDY INITIALLY PERFORMED: 08/17/2015 at [facility]. TYPE OF STUDY: Multiple CT images of the abdomen and pelvis with intravenous contrast are provided at the time of this interpretation. The protocol was adequate to address the clinical question. The outside final report was not available at the time of this second opinion interpretation. TYPE OF CONSULTATION: Consult on outside imaging study with images submitted through [facility] DATE OF CONSULTATION: 08/24/2015 HISTORY: Ovarian mass. COMPARISON: No prior studies are available for comparison. FINDINGS: The visualized lung bases are clear. The heart is normal in size. 1.0 cm hyper attenuating exophytic cyst is seen along hepatic segment 6 and may represent a hemorrhagic or proteinaceous perihepatic cyst. No other liver lesion. The gallbladder surgically absent. No intrahepatic or extrahepatic bile duct dilation. The pancreas and spleen are normal. Adrenals are normal. A 1.0 cm right renal cyst is seen. The kidneys are otherwise normal. No hydronephrosis. the urinary bladder is normal. A solid right ovarian mass is seen measuring 6.3 x 4.5 cm on position -644. Additionally a left ovarian mass is seen measuring 4.2 x 3.3 A 1.9 cm left ovarian or paraovarian cyst is also seen (SP -650). There is colonic diverticulosis without evidence of acute diverticulitis. A partially calcified mass is seen in in the region of the terminal ileum on slice position -738 which distorts the ileocecal valve and enhances with adjacent desmoplastic reaction. The distal appendix is seen however the mass may involve with proximal appendix. Scattered peritoneal nodules are seen for example measuring up to 0.6 cm on position 823. Additional tiny focus of nodularity seen on position -701. No enlarged pelvic, retroperitoneal or mesenteric lymphadenopathy. No soft tissue abnormality. No suspicious lytic or blastic osseous lesion. The hepatic veins and portal veins are patent. The abdominal aorta is normal in caliber. IMPRESSION: 1. Calcified enhancing mass centered in the terminal ileum with possible involvement of the proximal appendix and adjacent desmoplastic raises suspicion for primary tumor such as carcinoid or possiblyadenocarcinoma. 2. 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 3. Tiny nodules in the omentum may represent tumor deposits. The findings, conclusions and recommendations within this report do not replace the initial findings, conclusions and recommendations made at the facility where the study was performed based upon the imaging and clinical condition at that time. Comparison with the prior report and clinical history is necessary. The provided images may or may not represent the [place] source data set and thus may contain changes that may lower the accuracy of this second-opinion interpretation. Requested By: Dictated By: KELECHI ZEPEDA D.O. on Aug 24 2015 2:49P This document has been electronically signed by: KELECHI ZEPEDA D.O. on Aug 24 2015 3:29P [id number] us Historical Provider IMG XR PROCEDURES Final R esult * Clinical Image (08/17/2015 9:17 AM TOE STAPLER) 08/17/2015 9:17 AM TOE STAPLER us Historical Provider NURSING COMMUNICATION Fin al Result HISTORICAL RESULTS documented in this encounter Visit Diagnoses Not on filedocumented in this encounter
--- OUTSIDE RECORDS SUMMARY | 2024-06-25 22:39 | XMS_ITS | Encounter Summary ---
Author Organization [facility] Healthcare Address [address] [place] [address] Care Team Providers Care Major Sales Associate Name Role Phone Julio César Briseno MD Primary Care Provider + [phone] Encounter Details Date Type Department Care Team (Late st Contact Info) Description 2016 Orders Only [facility] Inter[facility] [phone] Eren rC MD [address] [facility] [address] [place], [place] [id number] Social History Tobacco Use Types Packs/Day Years Used Date Smoking Tobacco: Never Assessed Comments Unknown Sex and Gender Information Value Date Recorded Sex Assigned at Not on file 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 Gender Identity Not on file Sexual Orientation Straight 02/19/2021 9: 29 AM CDT documented as of this encounter Plan of Treatment Not on file documented as of this encounter Procedures Procedure Name Priority Date/Time Associated Diagnosis Comments COMPREHENSIVE METABOLIC PANEL Routine Gen Lab 2016 8:55 AM CDT documented in this encounter Results * (ABNORMAL) Comprehensive metabolic panel (2016 8:55 AM CDT) Sodium 139 135 - 145 mmol/L [facility] Potassium, pl 4.2 3.3 - 4.9 mmol/L [facility] CO2 29 22 - 32 mmol/L [facility] BUN 14 8 - 25 mg/dL [facility] Glucose 121 70 - 199 mg/dL [facility] Creatinine 0.84 0.60 - 1.10 mg/dL [facility] Calcium 10.8(H) 8.5 - 10.3 mg/dL [facility] Chloride 100 97 - 110 mmol/L [facility] Comment:fixed result mapping Albumin 4.4 3.5 - 5.0 g/dL [facility] AST 26 10 - 45 Units/L [facility] ALT 23 7 - 45 Units/L [facility] Alk phos 112 40 - 130 Units/L [facility] Bilirubin, total 1.0 0.1 - 1.2 mg/dL [facility] Protein, pl 7.5 6.5 - 8.5 g/dL [facility] Anion gap 10 2 - 15 mmol/L [facility] Blood specimen (specimen) 2016 8:55 AM CDT 2016 8:57 AM CDT us Eren Cr MD LAB BLOOD ORDERABLES Final Re sult [facility] Department [place] [address] documented in this encounter Visit Diagnoses Not on filedocumented in this encounter Care Teams Major Sales Associate Relationship Specialty Start Date End Date Julio César Briseno MD PCP - General 10/01/16 documented as of this encounter
--- OUTSIDE RECORDS SUMMARY | 2024-06-25 22:39 | XMS_ITS | Encounter Summary ---
Author Organization [facility] Healthcare Address [address] [place] [address] Care Team Providers Care Entomology Professor Name Role Phone Julio César Briseno MD Primary Care Provider Encounter Details Date Type Department Care Team (Latest Contact Info) Description 10/21/2017 7:03 AM CDT - 10/21/2017 11:59 PM CDT Hospital Encounter [facility] OP INTERIM [phone] Eren Wu MD [address] [place], [place] [id number] Discharge Disposition: Discharge to home or self care Social History Tobacco Use Types Packs/Day Years Used Date Smoking Tobacco: Former Comments Unknown Sex and Gender Information Value Date Recorded Sex Assigned at Not on file 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 Gender Identity Not on file Sexual Orientation Straight 02/19/2021 9: 29 AM CDT documented as of this encounter Medications at Time of Discharge ascorbic acid, vitamin C, 500 mg capsuleIndicatio ns:supplement Take 1 tablet by mouth social work instructor before breakfast 07/04/2016 4 octreotide (SandoSTATIN) 50 [...] Comments CT ABDOMEN PELVIS W CONTRAST Routine 10/21/2017 12:[address] CHEST W CONTRAST Routine 10/21/2017 1 2:53 PM CDT documented in this encounter Results * CT Abdomen Pelvis W Contrast (10/21/2017 12:53 PM CDT) Anatomical Region Laterality Modality Body N/A Computed Tomogra phy 10/21/2017 12:5 3 PM CDT Narrative 10/21/2017 5:07 PM CDT BALA ERIC M.D. BETO CANTU M.D. FINAL REPORT The radiology attending physician has personally reviewed this study, and has reviewed and/or edited this written report and agrees with it. ACC# ??Date Time ??Exam [id number] Oct 21, 2017 07:53:[address] Chest with contrast [id number] Oct 21, 2017 07:53:[address] Abd & ??Pelvis with cont EXAMINATION: ??Computed tomography of the chest, abdomen and pelvis with intravenous contrast HISTORY: Metastatic neuroendocrine tumor. TECHNIQUE: ??Transaxial computed tomographic images of the chest, abdomen and pelvis were obtained with intravenous contrast according to the standard protocol after the uneventful administration of 100 mL Opti-Ray 350 intravenous contrast. COMPARISON: 04/29/2017 FINDINGS: ?? Chest: There is a 4 mm nodule in the left upper lobe at table position -133 that is unchanged. ??There are reticulations in the right middle lobe that could represent atelectasis or early interstitial lung disease. There is no pleural effusion or pneumothorax. ??There is no focal consolidation. Heart is normal in size. ??There is no pericardial effusion. ??There is no central pulmonary embolism. ??There is an aberrant right subclavian artery. ?? There is a large right supraclavicular lymph node measuring 1.3 x 0.8 cm at table position -51, unchanged from the previous study (previously 1.4 x 0.9). ??Other prominent right supraclavicular lymph nodes are unchanged. ??There is no mediastinal or axillary lymphadenopathy. The thyroid gland is normal. ??There is a small hiatal hernia. Abdomen/Pelvis: The liver is normal in size. ??The gallbladder is surgically absent with mild intrahepatic bile duct dilatation, likely due to the postcholecystectomy status. ??There is unchanged capsular thickening of the liver dome, seen on the coronal series, image 64/101 measuring 5 mm in thickness and is unchanged. ??There is also capsular thickening along the posterior border of the liver measuring 11 mm it is unchanged. ??There are no intrahepatic focal liver lesions. The spleen is enlarged measuring up to 15 cm in AP dimension and is unchanged. ??The pancreas is normal. ??Both adrenal glands are normal. Both kidneys enhance symmetrically without hydronephrosis. ??There are multiple bilateral renal small hypoattenuating lesions are too small to characterize by CT. ??The urinary bladder is decompressed. ??Uterus is surgically absent. There is a hyperenhancing lesion in the right aspect of the vaginal cuff measuring 2.1 x 1.4 cm at table position -575, minimally increased in size from previous study (previously 1.9 x 1.3 cm). Other metastatic deposits along the sigmoid mesocolon are unchanged. For reference, there is an 8 mm nodule at table position -523 that is unchanged. ??A metastatic deposit in the sigmoid mesocolon tethering small bowel loops is unchanged. There is a small fat-containing abdominal wall hernia. ??There are prominent lymph nodes in the retroperitoneum that are unchanged. There are injection granulomas in the subcutaneous tissues of the flank. Small and large bowel are normal in caliber without bowel obstruction. ??There is no free intraperitoneal gas or free fluid in the pelvis. ??There is colonic diverticulosis without diverticulitis. The abdominal aorta is normal in caliber with scattered atherosclerotic calcifications. On bone windows, there are no suspicious osseous lytic or blastic lesions. IMPRESSION: ??Minimally increased size of a peritoneal deposit in the right aspect of the the vaginal cuff. ??Otherwise stable implants along the liver capsule, peritoneum and along the sigmoid mesocolon. Electronically signed by: Bala Eric M.D. Requested By: EREN WU M.D. Dictated By: ?? BETO CANTU M.D. ??on Oct 21 2017 ??8:25A This document has been electronically signed by: BALA ERIC M.D. on Oct 21 2017 12:05P Chapito GARCIA M.D. FINAL REPORT The radiology attending physician has personally reviewed this study, and has reviewed and/or edited this written report and agrees with it. Attending: ??BRYCE, ??EREN Requesting: ??WU, ??EREN Requesting Fax: ?? Attending Fax: ?? Attending ID: ??[id number] Requesting ID: ??[id number] Report To 1 ID: ??[id number] ? Report To 1 Name: ??, ?? Report To 1 FAX: ?? NextGen Order #: ?? Procedure Note Miscellaneous, Not In File - 10/21/2017 Chapito GARCIA M.D. FINAL REPORT The radiology attending physician has personally reviewed this study, and has reviewed and/or edited this written report and agrees with it. ACC# Date Time Exam [id number] Oct 21, 2017 07:53:[id number] Chest with contrast [id number] Oct 21, 2017 07:53:[address] Abd & Pelvis with cont EXAMINATION: Computed tomography of the chest, abdomen and pelvis with intravenous contrast HISTORY: Metastatic neuroendocrine tumor. TECHNIQUE: Transaxial computed tomographic images of the chest, abdomen and pelvis were obtained with intravenous contrast according to the standard protocol after the uneventful administration of 100 mL Opti-Ray 350 intravenous contrast. COMPARISON: 04/29/2017 FINDINGS: Chest: There is a 4 mm nodule in the left upper lobe at table position -133 that is unchanged. There are reticulations in the right middle lobe that could represent atelectasis or early interstitial lung disease. There is no pleural effusion or pneumothorax. There is no focal consolidation. Heart is normal in size. There is no pericardial effusion. There is no central pulmonary embolism. There is an aberrant right subclavian artery. There is a large right supraclavicular lymph node measuring 1.3 x 0.8 cm at table position -51, unchanged from the previous study (previously 1.4 x 0.9). Other prominent right supraclavicular lymph nodes are unchanged. There is no mediastinal or axillary lymphadenopathy. The thyroid gland is normal. There is a small hiatal hernia. Abdomen/Pelvis: The liver is normal in size. The gallbladder is surgically absent with mild intrahepatic bile duct dilatation, likely due to the postcholecystectomy status. There is unchanged capsular thickening of the liver dome, seen on the coronal series, image 64/101 measuring 5 mm in thickness and is unchanged. There is also capsular thickening along the posterior border of the liver measuring 11 mm it is unchanged. There are no intrahepatic focal liver lesions. The spleen is enlarged measuring up to 15 cm in AP dimension and is unchanged. The pancreas is normal. Both adrenal glands are normal. Both kidneys enhance symmetrically without hydronephrosis. There are multiple bilateral renal small hypoattenuating lesions are too small to characterize by CT. The urinary bladder is decompressed. Uterus is surgically absent. There is a hyperenhancing lesion in the right aspect of the vaginal cuff measuring 2.1 x 1.4 cm at table position -575, minimally increased in size from previous study (previously 1.9 x 1.3 cm). Other metastatic deposits along the sigmoid mesocolon are unchanged. For reference, there is an 8 mm nodule at table position -523 that is unchanged. A metastatic deposit in the sigmoid mesocolon tethering small bowel loops is unchanged. There is a small fat-containing abdominal wall hernia. There are prominent lymph nodes in the retroperitoneum that are unchanged. There are injection granulomas in the subcutaneous tissues of the flank. Small and large bowel are normal in caliber without bowel obstruction. There is no free intraperitoneal gas or free fluid in the pelvis. There is colonic diverticulosis without diverticulitis. The abdominal aorta is normal in caliber with scattered atherosclerotic calcifications. On bone windows, there are no suspicious osseous lytic or blastic lesions. IMPRESSION: Minimally increased size of a peritoneal deposit in the right aspect of the the vaginal cuff. Otherwise stable implants along the liver capsule, peritoneum and along the sigmoid mesocolon. Electronically signed by: Bala Eric M.D. Requested By: EREN WU M.D. Dictated By: BETO CANTU M.D. on Oct 21 2017 8:25A This document has been electronically signed by: BALA ERIC M.D. on Oct 21 2017 12:05P Chapito GARCIA M.D. FINAL REPORT The radiology attending physician has personally reviewed this study, and has reviewed and/or edited this written report and agrees with it. Attending: EREN WU Requesting: EREN WU Requesting Fax: Attending Fax: Attending ID: [id number] Requesting ID: [id number] Report To 1 ID: [id number] Report To 1 Name: , Report To 1 FAX: NextGen Order #: us Eren Wu MD IMG CT PROCEDURES Final Resul t * CT Chest W Contrast (10/21/2017 12:53 PM CDT) Anatomical Region Laterality Modality Body N/A Computed Tomogra phy 10/21/2017 12:5 3 PM CDT Narrative 10/21/2017 5:07 PM CDT Chapito GARCIA M.D. FINAL REPORT The radiology attending physician has personally reviewed this study, and has reviewed and/or edited this written report and agrees with it. ACC# ??Date Time ??Exam [id number] Oct 21, 2017 07:53:[address] Chest with contrast [id number] Oct 21, 2017 07:53:[address] Abd & ??Pelvis with cont EXAMINATION: ??Computed tomography of the chest, abdomen and pelvis with intravenous contrast HISTORY: Metastatic neuroendocrine tumor. TECHNIQUE: ??Transaxial computed tomographic images of the chest, abdomen and pelvis were obtained with intravenous contrast according to the standard protocol after the uneventful administration of 100 mL Opti-Ray 350 intravenous contrast. COMPARISON: 04/29/2017 FINDINGS: ?? Chest: There is a 4 mm nodule in the left upper lobe at table position -133 that is unchanged. ??There are reticulations in the right middle lobe that could represent atelectasis or early interstitial lung disease. There is no pleural effusion or pneumothorax. ??There is no focal consolidation. Heart is normal in size. ??There is no pericardial effusion. ??There is no central pulmonary embolism. ??There is an aberrant right subclavian artery. ?? There is a large right supraclavicular lymph node measuring 1.3 x 0.8 cm at table position -51, unchanged from the previous study (previously 1.4 x 0.9). ??Other prominent right supraclavicular lymph nodes are unchanged. ??There is no mediastinal or axillary lymphadenopathy. The thyroid gland is normal. ??There is a small hiatal hernia. Abdomen/Pelvis: The liver is normal in size. ??The gallbladder is surgically absent with mild intrahepatic bile duct dilatation, likely due to the postcholecystectomy status. ??There is unchanged capsular thickening of the liver dome, seen on the coronal series, image 64/101 measuring 5 mm in thickness and is unchanged. ??There is also capsular thickening along the posterior border of the liver measuring 11 mm it is unchanged. ??There are no intrahepatic focal liver lesions. The spleen is enlarged measuring up to 15 cm in AP dimension and is unchanged. ??The pancreas is normal. ??Both adrenal glands are normal. Both kidneys enhance symmetrically without hydronephrosis. ??There are multiple bilateral renal small hypoattenuating lesions are too small to characterize by CT. ??The urinary bladder is decompressed. ??Uterus is surgically absent. There is a hyperenhancing lesion in the right aspect of the vaginal cuff measuring 2.1 x 1.4 cm at table position -575, minimally increased in size from previous study (previously 1.9 x 1.3 cm). Other metastatic deposits along the sigmoid mesocolon are unchanged. For reference, there is an 8 mm nodule at table position -523 that is unchanged. ??A metastatic deposit in the sigmoid mesocolon tethering small bowel loops is unchanged. There is a small fat-containing abdominal wall hernia. ??There are prominent lymph nodes in the retroperitoneum that are unchanged. There are injection granulomas in the subcutaneous tissues of the flank. Small and large bowel are normal in caliber without bowel obstruction. ??There is no free intraperitoneal gas or free fluid in the pelvis. ??There is colonic diverticulosis without diverticulitis. The abdominal aorta is normal in caliber with scattered atherosclerotic calcifications. On bone windows, there are no suspicious osseous lytic or blastic lesions. IMPRESSION: ??Minimally increased size of a peritoneal deposit in the right aspect of the the vaginal cuff. ??Otherwise stable implants along the liver capsule, peritoneum and along the sigmoid mesocolon. Electronically signed by: Bala Eric M.D. Requested By: EREN WU M.D. Dictated By: ?? BETO CANTU M.D. ??on Oct 21 2017 ??8:25A This document has been electronically signed by: BALA ERIC M.D. on Oct 21 2017 12:05P [id number] GARCIA M.D. FINAL REPORT The radiology attending physician has personally reviewed this study, and has reviewed and/or edited this written report and agrees with it. Attending: ??BRYCE, ??EREN Requesting: ??BRYCE, ??EREN Requesting Fax: ?? Attending Fax: ?? Attending ID: ??[id number] Requesting ID: ??[id number] Report To 1 ID: ??[id number] ? Report To 1 Name: ??, ?? Report To 1 FAX: ?? NextGen Order #: ?? Procedure Note Miscellaneous, Not In File - 10/21/2017 Chapito GARCIA M.D. FINAL REPORT The radiology attending physician has personally reviewed this study, and has reviewed and/or edited this written report and agrees with it. ACC# Date Time Exam [id number] Oct 21, 2017 07:53:[address] Chest with contrast [id number] Oct 21, 2017 07:53:[address] Abd & Pelvis with cont EXAMINATION: Computed tomography of the chest, abdomen and pelvis with intravenous contrast HISTORY: Metastatic neuroendocrine tumor. TECHNIQUE: Transaxial computed tomographic images of the chest, abdomen and pelvis were obtained with intravenous contrast according to the standard protocol after the uneventful administration of 100 mL Opti-Ray 350 intravenous contrast. COMPARISON: 04/29/2017 FINDINGS: Chest: There is a 4 mm nodule in the left upper lobe at table position -133 that is unchanged. There are reticulations in the right middle lobe that could represent atelectasis or early interstitial lung disease. There is no pleural effusion or pneumothorax. There is no focal consolidation. Heart is normal in size. There is no pericardial effusion. There is no central pulmonary embolism. There is an aberrant right subclavian artery. There is a large right supraclavicular lymph node measuring 1.3 x 0.8 cm at table position -51, unchanged from the previous study (previously 1.4 x 0.9). Other prominent right supraclavicular lymph nodes are unchanged. There is no mediastinal or axillary lymphadenopathy. The thyroid gland is normal. There is a small hiatal hernia. Abdomen/Pelvis: The liver is normal in size. The gallbladder is surgically absent with mild intrahepatic bile duct dilatation, likely due to the postcholecystectomy status. There is unchanged capsular thickening of the liver dome, seen on the coronal series, image 64/101 measuring 5 mm in thickness and is unchanged. There is also capsular thickening along the posterior border of the liver measuring 11 mm it is unchanged. There are no intrahepatic focal liver lesions. The spleen is enlarged measuring up to 15 cm in AP dimension and is unchanged. The pancreas is normal. Both adrenal glands are normal. Both kidneys enhance symmetrically without hydronephrosis. There are multiple bilateral renal small hypoattenuating lesions are too small to characterize by CT. The urinary bladder is decompressed. Uterus is surgically absent. There is a hyperenhancing lesion in the right aspect of the vaginal cuff measuring 2.1 x 1.4 cm at table position -575, minimally increased in size from previous study (previously 1.9 x 1.3 cm). Other metastatic deposits along the sigmoid mesocolon are unchanged. For reference, there is an 8 mm nodule at table position -523 that is unchanged. A metastatic deposit in the sigmoid mesocolon tethering small bowel loops is unchanged. There is a small fat-containing abdominal wall hernia. There are prominent lymph nodes in the retroperitoneum that are unchanged. There are injection granulomas in the subcutaneous tissues of the flank. Small and large bowel are normal in caliber without bowel obstruction. There is no free intraperitoneal gas or free fluid in the pelvis. There is colonic diverticulosis without diverticulitis. The abdominal aorta is normal in caliber with scattered atherosclerotic calcifications. On bone windows, there are no suspicious osseous lytic or blastic lesions. IMPRESSION: Minimally increased size of a peritoneal deposit in the right aspect of the the vaginal cuff. Otherwise stable implants along the liver capsule, peritoneum and along the sigmoid mesocolon. Electronically signed by: Bala Eric M.D. Requested By: EREN WU M.D. Dictated By: BETO CANTU M.D. on Oct 21 2017 8:25A This document has been electronically signed by: BALA ERIC M.D. on Oct 21 2017 12:05P [id number] ERIC M.D. BETO CANTU M.D. FINAL REPORT The radiology attending physician has personally reviewed this study, and has reviewed and/or edited this written report and agrees with it. Attending: EREN WU Requesting: EREN WU Requesting Fax: Attending Fax: Attending ID: [id number] Requesting ID: [id number] Report To 1 ID: [id number] Report To 1 Name: , Report To 1 FAX: NextGen Order #: Eren Wu MD IMG CT PROCEDURES Final Resul t documented in this encounter Visit Diagnoses Not on filedocumented in this encounter Care Teams Entomology Professor Relationship Specialty Start Date End Date Julio César Briseno MD PCP - General 10/01/16 documented as of this encounter
--- OUTSIDE RECORDS SUMMARY | 2024-06-25 22:39 | XMS_ITS | Encounter Summary ---
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 Analyte Specific Reagent: This test was developed and its performance characteristics determined by [facility]. It has not been cleared or approved by the U.S. Food and Drug Administration. ? Values obtained with different assay methods or kits may be different and cannot be used interchangeably. ? Test results cannot be interpreted as absolute evidence for the presence or absence of malignant disease. Test Performed by: [place] [address] Blood specimen (specimen) 2016 8:40 AM CDT 2016 9:36 AM CDT Eren Cr MD LAB BLOOD ORDERABLES Final Re sult [facility] Department [place] [address] documented in this encounter Visit Diagnoses Not on filedocumented in this encounter Care Teams Underwater Welder Relationship Specialty Start Date End Date Julio César Briseno MD PCP - General 10/01/16 documented as of this encounter
--- OUTSIDE RECORDS SUMMARY | 2024-06-25 22:39 | XMS_ITS | Encounter Summary ---
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 Gender Identity Not on file Sexual Orientation Straight 02/19/2021 9: 29 AM CDT documented as of this encounter Plan of Treatment Not on file documented as of this encounter Procedures Procedure Name Priority Date/Time Associated Diagnosis Comments CBC WITH AUTO DIFFERENTIAL Routine Gen Lab 12/04/2016 7:00 AM CDT documented in this encounter Results * (ABNORMAL) CBC with auto differential (12/04/2016 7:00 AM CDT) WBC 6.6 3.8 - 9.8 K/cumm [facility] RBC 4.79 3.90 - 5.00 M/cumm [facility] Hgb 13.9 12.1 - 15.1 g/dL [facility] Hct 40.4 36.1 - 44.3 % [facility] Mean Cellular Volume - CAM 84.2 80.0 - 97.6 fL [facility] Mean Cellular Hemoglobin - CAM 29.0 26.7 - 33.7 pg [facility] Mean Cellular Hemoglobin Concentration - CAM 34.5 32.7 - 35.5 g/dL [facility] Rdw 13.4 11.8 - 14.6 % [facility] Plt 131(L) 140 - 440 K/cumm [facility] Mean Platelet Volume - CAM 8.1 6.8 - 10.4 fL [facility] Neutrophil pct 48.2 38.7 - 74.5 % [facility] Lymphocyte pct 41.9 20.0 - 54.3 % [facility] Monos 7.5 4.3 - 13.5 % [facility] Eosinophil pct 1.6 0.0 - 6.0 % [facility] Basophil pct 0.8 0.0 - 3.0 % [facility] Neutrophil abs 3.2 1.8 - 6.6 K/cumm [facility] Lymphocyte abs 2.8 1.2 - 3.3 K/cumm [facility] Monocyte abs 0.5 0.2 - 1.2 K/cumm [facility] Eosinophils, abs 0.1 0.0 - 0.5 K/cumm [facility] Basophil abs 0.1 0.0 - 0.2 K/cumm [facility] NRBC 0.0 0.0 - 0.2 % [facility] NRBC abs 0.00 0.00 - 0.01 K/cumm [facility] Blood specimen (specimen) 12/04/2016 7:00 AM CDT 12/04/2016 7:05 AM CDT us Eren Cr MD LAB BLOOD ORDERABLES Final Re sult [facility] One [facility] [place] [address] documented in this encounter Visit Diagnoses Not on filedocumented in this encounter Care Teams De Icer Installer Relationship Specialty Start Date End Date Julio César Briseno MD PCP - General 10/01/16 documented as of this encounter
--- OUTSIDE RECORDS SUMMARY | 2024-06-25 22:39 | XMS_ITS | Encounter Summary ---
Author Organization [facility] Care Team Providers Care Lithopone Charger Name Role Phone Unavailable Primary Care Provider Unavailabl e Encounter Details Date Type Department Care Team (Late st Contact Info) Description 11/07/2015 - 11/07/2015 11:59 PM CDT Hospital Encounter [facility] Eren De Paz MD [address] [facility] [address] [place] [address] Other malignant neuroendocrine tumors (HCC) Social History Tobacco Use Types Packs/Day Years Used Date Smoking Tobacco: Never Assessed Comments Unknown Sex and Gender Information Value Date Recorded Sex Assigned at Not on file 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 Gender Identity Not on file Sexual Orientation Straight 02/19/2021 9: 29 AM CDT documented as of this encounter Plan of Treatment Not on file documented as of this encounter Procedures Procedure Name Priority Date/Time Associated Diagnosis Comments URINE VOLUME, TIMED Routine 11/07/2015 6 :30 AM CDT URINE 5-HYDROXYINDOLEACETI C ACID (5-HIAA), 24 HOUR Routine 11/07/2015 6:30 AM CDT DISCHARGE LABORATORY CUMULATIVE REPORT 11/07/2015 documented in this encounter Results * Urine volume, time (11/07/2015 6:30 AM CDT) Volume, ur 1750 ml HISTORICA L RESULTS Collection period, ur 1440 minutes HISTORICAL RESULTS Urine 11/07/2015 6:30 AM CDT Eren Cr MD LAB BLOOD ORDERABLES Final Re sult Performing Organization Address [facility] de Phone Number HISTORICAL RESULTS * (ABNORMAL) Urine 5-hydroxyindoleacetic acid (5-HIAA), 24 hour (11/07/2015 6:30 AM CDT) 5-HIAA, ur 10(H) <=8.0 mg/24 hr HISTORICAL RESULTS Comment: In this sample, the excretion of 5HIAA was elevated. This finding could be a pharmacological or dietary artifact (several fruits and vegetables contain large amounts of serotonin, the precursor of 5HIAA), but could also be indicative of the presence of a serotonin-producing tumor. Interpretive Data Testing performed by: [facility], [place] [address]. Urine 11/07/2015 6:30 AM CDT Eren Cr MD LAB BLOOD ORDERABLES Final [facility] Performing Organization Address [facility] de Phone Number HISTORICAL RESULTS * DISCHARGE LABORATORY CUMULATIVE REPORT (11/07/2015) Narrative 11/07/2015 Ordered by an unspecified provider. Historical Provider LAB BLOOD ORDERABLES Mel l Result documented in this encounter Visit Diagnoses Diagnosis Other malignant neuroendocrine tumors (HCC) documented in this encounter
--- OUTSIDE RECORDS SUMMARY | 2024-06-25 22:39 | XMS_ITS | Encounter Summary ---
Author Organization [facility] Healthcare Address [address] [place] [address] Care Team Providers Care Patient Observer Name Role Phone Julio César Briseno MD Primary Care Provider [phone] Encounter Details Date Type Department Care Team (Late st Contact Info) Description 12/04/2016 Orders Only [facility] [phone] Eren Cr MD [address] [facility] [address]C [address] [place], [place] [id number] Social History Tobacco Use Types Packs/Day Years Used Date Smoking Tobacco: Never Assessed Comments Unknown Sex and Gender Information Value Date Recorded Sex Assigned at Not on file 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 Analyte Specific Reagent: This test was developed and its performance characteristics determined by [facility]. It has not been cleared or approved by the U.S. Food and Drug Administration. ? Values obtained with different assay methods or kits may be different and cannot be used interchangeably. ? Test results cannot be interpreted as absolute evidence for the presence or absence of malignant disease. Test Performed by: [place] [address] Blood specimen (specimen) 12/04/2016 7:00 AM CDT 12/04/2016 8:05 AM CDT Eren Cr MD LAB BLOOD ORDERABLES Final Re sult [facility] One [facility] Department [place] [address] documented in this encounter Visit Diagnoses Not on filedocumented in this encounter Care Teams Patient Observer Relationship Specialty Start Date End Date Julio César Briseno MD PCP - General 10/01/16 documented as of this encounter
--- OUTSIDE RECORDS SUMMARY | 2024-06-25 22:39 | XMS_ITS | Encounter Summary ---
Author Organization [facility] Address [address] [place] [address] Phone Care Team Providers Care Mechanic'S Assistant Name Role Phone Julio César Briseno MD Primary Care Provider [phone] Encounter Details Date Type Department Care Team (Late st Contact Info) Description 12/25/2017 Orders Only [facility] [address] [place] [address] Advanced Medicine 7th [place] [address] [place] [address] Mayela Williamson, [place] Neuroendocrine carcinoma (CMS/HCC) (Primary Dx); Malignant neoplasm metastatic to liver (CMS/HCC) Social History Tobacco Use Types Packs/Day Years Used Date Smoking Tobacco: Former Comments Unknown Sex and Gender Information Value Date Recorded Sex Assigned at Not on file 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 Gender Identity Not on file Sexual Orientation Straight 02/19/2021 9: 29 AM CDT documented as of this encounter Plan of Treatment Not on file documented as of this encounter Results * (ABNORMAL) CBC with auto differential (03/24/2018 9:05 AM CDT) WBC 6.9 3.8 - 9.8 K/cumm [facility] Comment:Testing performed by : [facility], [address] [place] [phone] Hgb 14.3 12.1 - 15.1 g/dL [facility] Comment:Testing performed by : [facility], [address] [place] [address] Hct 41.4 36.1 - 44.3 % [facility] Comment:Testing performed by : [facility], [address] [place] [address] Plt 139(L) 140 - 440 K/cumm [facility] Comment:Testing performed by : [facility], [address] [place] [address] MPV 7.5 6.8 - 10.4 fL [facility] Comment:Testing performed by : [place] [address] RBC 4.92 3.90 - 5.00 M/cumm [facility] Comment:Testing performed by : [place] [address] MCV 84.1 80.0 - 97.6 fL [facility] Comment:Testing performed by : [facility], [address] [place] [address] MCH 29.1 26.7 - 33.7 pg [facility] Comment:Testing performed by : [place] [address] MCHC 34.6 32.7 - 35.5 g/dL [facility] Comment:Testing performed by : [place] [address] RDW CV 13.5 11.8 - 14.6 % [facility] Comment:Testing performed by : [facility], [address] [place] [address] NRBC abs 0.01 0.00 - 0.01 K/cumm [facility] Comment:Testing performed by : [place] [address] Blood specimen (specimen) 03/24/2018 9:05 AM CDT 03/24/2018 9:09 AM CDT Narrative [facility] - 03/24/2018 9:15 AM CDT Eren Cr MD LAB BLOOD ORDERABLES Final Re sult [facility] [address] [place] [address] * Chromogranin A (03/24/2018 9:02 AM CDT) Pathologist [facility] Chromogranin A 90 <93 ng/mL [facility] Comment: A reagent change was implemented [...] its performance characteristics determined by [facility] in a manner consistent with [...] absence of malignant disease. Test Performed by: [place] [address] Blood specimen (specimen) 03/24/2018 9:02 AM CDT 03/24/2018 10:16 AM CDT Narrative [facility] - 03/25/2018 11:25 AM CDT Eren Cr MD LAB BLOOD ORDERABLES Final Re sult [facility] Department of [place] [address] * (ABNORMAL) Comprehensive metabolic panel (03/24/2018 9:02 AM CDT) [facility] Sodium 142 135 - 145 mmol/L [facility] Potassium, pl 3.5 3.3 - 4.9 mmol/L [facility] Chloride 105 97 - 110 mmol/L [facility] CO2 30 22 - 32 mmol/L [facility] Anion gap 7 2 - 15 mmol/L [facility] BUN 13 8 - 25 mg/dL [facility] Creatinine 0.83 0.60 - 1.10 mg/dL [facility] Glucose 86 70 - 199 mg/dL [facility] Comment: Interpretive Data Fasting glucose >/= [...] 2017. Calcium 10.4(H) 8.5 - 10.3 mg/dL [facility] Bilirubin, total 0.6 0.1 - 1.2 mg/dL [facility] Protein, pl 6.8 6.5 - 8.5 g/dL [facility] Albumin 4.3 3.5 - 5.0 g/dL [facility] Alk phos 90 40 - 130 Units/L [facility] ALT 16 7 - 45 Units/L [facility] AST 23 10 - 45 Units/L [facility] Blood specimen (specimen) 03/24/2018 9:02 AM CDT 03/24/2018 9:36 AM CDT Narrative [facility] - 03/24/2018 10:05 AM CDT us Eren Cr MD LAB BLOOD ORDERABLES Final Re sult [facility] Department [place] [address] * Chromogranin A (02/24/2018 9:15 AM CDT) Chromogranin A 92 <93 ng/mL [facility] Comment: A reagent change was implemented [...] its performance characteristics determined by [facility] in a manner consistent with [...] absence of malignant disease. Test Performed by: [facility] [address] [place], [place] [id number] Blood specimen (specimen) 02/24/2018 9:15 AM CDT 02/24/2018 1:57 PM CDT Narrative [facility] - 02/25/2018 1:43 PM CDT us Eren Cr MD LAB BLOOD ORDERABLES Final Re sult [facility] Department [place] [address] * (ABNORMAL) Comprehensive metabolic panel (02/24/2018 9:15 AM CDT) Pathologist [facility] Sodium 141 135 - 145 mmol/L [facility] Potassium, pl 4.0 3.3 - 4.9 mmol/L [facility] Chloride 105 97 - 110 mmol/L [facility] CO2 26 22 - 32 mmol/L [facility] Anion gap 10 2 - 15 mmol/L [facility] BUN 20 8 - 25 mg/dL [facility] Creatinine 1.01 0.60 - 1.10 mg/dL [facility] Glucose 95 70 - 199 mg/dL [facility] Comment: Interpretive Data Fasting glucose >/= [...] 10.5(H) 8.5 - 10.3 mg/dL [facility] Bilirubin, total 0.5 0.1 - 1.2 mg/dL [facility] Protein, pl 7.1 6.5 - 8.5 g/dL [facility] Albumin 4.3 3.5 - 5.0 g/dL [facility] Alk phos 94 40 - 130 Units/L [facility] ALT 17 7 - 45 Units/L [facility] AST 19 10 - 45 Units/L [facility] Blood specimen (specimen) 02/24/2018 9:15 AM CDT 02/24/2018 10:18 AM CDT Narrative [facility] - 02/24/2018 10:46 AM CDT Eren Cr MD LAB BLOOD ORDERABLES Final Re sult [facility] Department of Laboratories [place], [place] [id number] * (ABNORMAL) CBC with auto differential (02/24/2018 9:11 AM CDT) WBC 6.5 3.8 - 9.8 K/cumm [facility] Comment:Testing performed by : [facility], [address] [place] [id number] Hgb 14.3 12.1 - 15.1 g/dL [facility] Comment:Testing performed by : [facility], [address] [place], [place] [phone] Hct 42.6 36.1 - 44.3 % [facility] Comment:Testing performed by : [facility], [address] [place] [address] Plt 156 140 - 440 K/cumm [facility] Comment:Testing performed by : [facility], [address] [place], [place] [phone] MPV 7.9 6.8 - 10.4 fL [facility] Comment:Testing performed by : [facility], [address] [place] [address] RBC 4.97 3.90 - 5.00 M/cumm [facility] Comment:Testing performed by : [facility], [address] [place] [address] MCV 85.7 80.0 - 97.6 fL [facility] Comment:Testing performed by : [facility], [address] [place] [address] MCH 28.8 26.7 - 33.7 pg [facility] Comment:Testing performed by : [facility], [address] [place], [place] [id number] MCHC 33.7 32.7 - 35.5 g/dL [facility] Comment:Testing performed by : [facility], [address] [place], [place] [phone] RDW CV 13.3 11.8 - 14.6 % [facility] Comment:Testing performed by : [place] [address] NRBC abs 0.02(H) 0.00 - 0.01 K/cumm [facility] Comment:Testing performed by : [facility], [address] [place], [place] [phone] Blood specimen (specimen) 02/24/2018 9:11 AM CDT 02/24/2018 9:15 AM CDT Narrative [facility] - 02/24/2018 9:20 AM CDT us Eren Cr MD LAB BLOOD ORDERABLES Final Re sult [facility] Department [place] [address] * CBC with auto differential (01/27/2018 9:18 AM CDT) WBC 5.6 3.8 - 9.8 K/cumm [facility] Comment:Testing performed by : [facility], [address] [place] [address] Hgb 13.6 12.1 - 15.1 g/dL [facility] Comment:Testing performed by : [facility], [address] [place] [address] Hct 40.2 36.1 - 44.3 % [facility] Comment:Testing performed by : [facility], [address] [place] [address] Plt 143 140 - 440 K/cumm [facility] Comment:Testing performed by : [place] [address] MPV 7.7 6.8 - 10.4 fL [facility] Comment:Testing performed by : [place] [address] RBC 4.71 3.90 - 5.00 M/cumm [facility] Comment:Testing performed by : [place] [address] MCV 85.4 80.0 - 97.6 fL [facility] Comment:Testing performed by : [place] [address] MCH 28.8 26.7 - 33.7 pg [facility] Comment:Testing performed by : [place] [id number] MCHC 33.7 32.7 - 35.5 g/dL [facility] Comment:Testing performed by : [address] RDW CV 13.9 11.8 - 14.6 % [facility] Comment:Testing performed by : [place] [id number] NRBC abs 0.00 0.00 - 0.01 K/cumm [facility] Comment:Testing performed by : [facility], [address] [facility] [phone] Blood specimen (specimen) 01/27/2018 9:18 AM CDT 01/27/2018 9:20 AM CDT Narrative [facility] - 01/27/2018 9:25 AM CDT Eren Cr MD LAB BLOOD ORDERABLES [facility] Department [place] [address] * Chromogranin A (01/27/2018 9:14 AM CDT) Chromogranin A 81 <93 ng/mL [facility] Comment: A reagent change was implemented on [...] its performance characteristics determined by [facility] in a manner consistent with [...] by: [facility] [address] [place] [address] Blood specimen (specimen) 01/27/2018 9:14 AM CDT 01/27/2018 3:21 PM CDT Dylan [facility] - 01/28/2018 1:59 PM CDT Eren Cr MD LAB BLOOD ORDERABLES Final Re sult [facility] Department [place] [address] * (ABNORMAL) Comprehensive metabolic panel (01/27/2018 9:14 AM CDT) Sodium 142 135 - 145 mmol/L [facility] Potassium, pl 4.6 3.3 - 4.9 mmol/L [facility] Chloride 106 97 - 110 mmol/L [facility] CO2 30 22 - 32 mmol/L [facility] Anion gap 6 2 - 15 mmol/L [facility] BUN 15 8 - 25 mg/dL [facility] Creatinine 0.87 0.60 - 1.10 mg/dL [facility] Glucose 133 70 - 199 mg/dL [facility] Comment: Interpretive Data Fasting glucose >/= [...] 2017. Calcium 10.4(H) 8.5 - 10.3 mg/dL [facility] Bilirubin, total 0.6 0.1 - 1.2 mg/dL [facility] Protein, pl 6.9 6.5 - 8.5 g/dL [facility] Albumin 4.0 3.5 - 5.0 g/dL [facility] Alk phos 89 40 - 130 Units/L [facility] ALT 16 7 - 45 Units/L [facility] AST 23 10 - 45 Units/L [facility] Blood specimen (specimen) 01/27/2018 9:14 AM CDT 01/27/2018 9:33 AM CDT Narrative [facility] - 01/27/2018 10:24 AM CDT Eren Cr MD LAB BLOOD ORDERABLES Final Re sult [facility] Department [place] [address] * Chromogranin A (12/30/2017 8:44 AM CDT) Chromogranin A 73 <93 ng/mL [facility] Comment: A reagent change was implemented [...] its performance characteristics determined by [facility] in a manner consistent with [...] by: [facility] - [address] [address] Blood specimen (specimen) 12/30/2017 8:44 AM CDT 12/30/2017 11:[address] [facility] - 12/31/2017 12:11 PM CDT Eren Cr MD LAB BLOOD ORDERABLES Final Re sult [facility] Department [place] [address] * Comprehensive metabolic panel (12/30/2017 8:44 AM CDT) Sodium 141 135 - 145 mmol/L [facility] Potassium, pl 4.1 3.3 - 4.9 mmol/L [facility] CO2 28 22 - 32 mmol/L [facility] BUN 12 8 - 25 mg/dL [facility] Glucose 120 70 - 199 mg/dL [facility] Comment: Interpretive Data Fasting glucose >/= [...] 2017. Creatinine 0.79 0.60 - 1.10 mg/dL [facility] Calcium 10.1 8.5 - 10.3 mg/dL [facility] Chloride 106 97 - 110 mmol/L [facility] Albumin 4.1 3.5 - 5.0 g/dL [facility] AST 25 10 - 45 Units/L [facility] ALT 14 7 - 45 Units/L [facility] Alk phos 95 40 - 130 Units/L [facility] Bilirubin, total 0.5 0.1 - 1.2 mg/dL [facility] Protein, pl 6.9 6.5 - 8.5 g/dL [facility] Anion gap 7 2 - 15 mmol/L [facility] Blood specimen (specimen) 12/30/2017 8:44 AM CDT 12/30/2017 9:05 AM CDT Narrative [facility] - 12/30/2017 9:40 AM CDT us Eren Cr MD LAB BLOOD ORDERABLES Final Re sult [facility] Department [place] [address] * (ABNORMAL) CBC with auto differential (12/30/2017 8:37 AM CDT) WBC 6.2 3.8 - 9.8 K/cumm [facility] RBC 4.72 3.90 - 5.00 M/cumm [facility] Hgb 13.6 12.1 - 15.1 g/dL [facility] Hct 40.3 36.1 - 44.3 % [facility] MCV 85.5 80.0 - 97.6 fL [facility] MCH 28.9 26.7 - 33.7 pg [facility] MCHC 33.8 32.7 - 35.5 g/dL [facility] RDW CV 13.5 11.8 - 14.6 % [facility] Plt 152 140 - 440 K/cumm [facility] MPV 7.5 6.8 - 10.4 fL [facility] NRBC abs 0.03(H) 0.00 - 0.01 K/cumm [facility] Blood specimen (specimen) 12/30/2017 8:37 AM CDT 12/30/2017 8:41 AM CDT Narrative [facility] - 12/30/2017 8:45 AM CDT Eren Cr MD LAB BLOOD ORDERABLES Final Re sult [facility] Department [place] [address] documented in this encounter Visit Diagnoses Diagnosis [...] site documented in this encounter Care Teams Mechanic'S Assistant Relationship Specialty Start Date End Date Julio César Briseno MD PCP - General 10/01/16 documented as of this encounter
--- OUTSIDE RECORDS SUMMARY | 2024-06-25 22:39 | XMS_ITS | Encounter Summary ---
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 Gender Identity Not on file Sexual Orientation Straight 02/19/2021 9: 29 AM CDT documented as of this encounter Medications at Time of Discharge octreotide (SandoSTATIN) 50 mcg/mL (1 mL) syringe every 30 (thirty) days 04/09/2016 11/13/2021 documented as of this encounter Plan of Treatment Not on file documented as of this encounter Procedures Procedure Name Priority Date/Time Associated Diagnosis Comments GENITAL FLUID HUMAN PAPILLOMARVIRUS RNA Routine 05/16/2016 2:16 AM CFA documented in this encounter Results * Genital fluid human papillomarvirus RNA (05/16/2016 2:16 AM CFA) Human papillomavirus RNA, High Risk E6/E7 NEGATIVE for types 16, 18, 31, 33, 35, 39, 45, 51, 52, 56, 58, 59, 66 and 68. NEGATIVE fortypes 16,18,31 ,33,35,3 9,45,51, 52,56,58 ,59,66an d68. CDR HISTORICAL RESULTS Comment:Test performed utili Undertone Gen-Probe Aptima assay. Genital 05/16/2016 2:16 AM CFA Narrative CDR HISTORICAL RESULTS - 05/24/2016 8:50 AM CFA [id number] us Historical Provider LAB BLOOD ORDERABLES Mel l Result CDR HISTORICAL RESULTS documented in this encounter Visit Diagnoses Not on filedocumented in this encounter
--- OUTSIDE RECORDS SUMMARY | 2024-06-25 22:39 | XMS_ITS | Encounter Summary ---
Author Organization [facility] Facility Care Team Providers Care Head Grinder Name Role Phone Unavailable Primary Care Provider Unavailabl e Encounter Details Date Type Department Care Team (Late st Contact Info) Description 06/28/2014 - 06/28/2014 11:59 PM RACK ROOM WORKER Hospital Encounter [facility] Aft, Sunshine Davies MD PhD [address] [place] [address] Lump or mass in breast Social History Tobacco Use Types Packs/Day Years Used Date Smoking Tobacco: Never Assessed Comments Unknown Sex and Gender Information Value Date Recorded Sex Assigned at Not on file Legal Sex Female 2:41 PM RACK ROOM WORKER Gender Identity Not on file Sexual Orientation Straight 02/19/2021 9: 29 AM CDT documented as of this encounter Plan of Treatment Not on file documented as of this encounter Procedures Procedure Name Priority Date/Time Associated Diagnosis Comments US BREAST LIMITED Routine 06/28/2014 2:3 5 PM RACK ROOM WORKER SCREENING MAMMOGRAM W KHANH Routine 06/28/2014 2:14 PM RACK ROOM WORKER DIAGNOSTIC MAMMOGRAM 2D BILATERAL Routine 06/28/2014 2:14 PM RACK ROOM WORKER documented in this encounter Results * US Breast Limited (06/28/2014 2:35 PM RACK ROOM WORKER) Anatomical Region Laterality Modality Breast N/A Ultrasound 06/28/2014 2:35 PM RACK ROOM WORKER Narrative 06/28/2014 3:44 PM RACK ROOM WORKER ARNOLDO FERNANDES M.D. CARMITA BLEVINS, FINAL REPORT The radiology attending physician has personally reviewed this study, and has reviewed and/or edited this written report and agrees with it. ACC# ??Date Time ??Exam [id number] Jun 28, 2014 14:14:00 [facility] 70197 Diag Mammogram Bilateral ?? Technologist(s): Linda Reza; ; [id number] Jun 28, 2014 14:14:00 [facility] 15303O Bilateral Tomosynthesis ?? Technologist(s): Linda Reza; ; [id number] Jun 28, 2014 14:35:00 [facility] 66146T Sono Breast (Unilateral) L ACC# ??Date Time ??Exam [id number] Jun 28, 2014 14:14:00 [facility] 40818 Diag Mammogram Bilateral ?? Technologist(s): Linda Reza; ; [id number] Jun 28, 2014 14:14:00 [facility] 32807P Bilateral Tomosynthesis ?? Technologist(s): Linda Reza; ; [id number] Jun 28, 2014 14:35:00 [facility] [id number] Sono Breast (Unilateral) L EXAMINATION: ?? BILATERAL FULL FIELD DIGITAL DIAGNOSTIC MAMMOGRAM, BILATERAL DIGITAL BREAST TOMOSYNTHESIS, LEFT BREAST SONOGRAM HISTORY: 63-year-old woman with abnormal outside facility mammogram reportedly demonstrating a 6 mm mass in the 1:00 to 2:00 LEFT breast 3 cm from the nipple. Further evaluation is requested by Dr. Sunshine Parrish, who is seeing the patient in breast surgery clinic today. TECHNIQUE: ??Full field digital craniocaudal and mediolateral oblique views of both breasts were obtained. ??Digital breast tomosynthesis was also performed and reviewed as a part of this examination. COMPARISON: [facility] mammograms dated 06/02/2014, 05/24/2014, 05/22/2013, 05/20/2012, 05/08/2011, 04/17/2010, 04/15/2009 BREAST PARENCHYMAL COMPOSITION: There are scattered areas of fibroglandular density. MAMMOGRAM FINDINGS: ??No suspicious abnormality is seen within either breast on mammogram. SONOGRAM FINDINGS: Targeted sonogram of the upper outer 1:00 to 2:00 left breast was performed. There is no suspicious solid or cystic lesion. On directed physical examination by Dr. Carmita Blevins, there is no suspicious palpable abnormality at this time. ?? IMPRESSION: OVERALL FINAL ASSESSMENT: ??BI-RADS Category 1: Negative. These findings were discussed with the patient at the conclusion of examination by Dr. Carmita Blevins and delivered in writing to Dr. Sunshine Parrish, who is seeing the patient breast surgery clinic. RECOMMENDATION: ??Annual screening mammography is recommended, next due in May 2015. ?? Requested By: Dictated By: ?? CARMITA BLEVINS, ?? on Jun 28 2014 ??3:39P This document has been electronically signed by: ARNOLDO FERNANDES M.D. on Jun 28 2014 ??3:44P Procedure Note Provider, MD Levon - 11/01/2016 ARNOLDO FERNANDES M.D. CARMITA BLEVINS, FINAL REPORT The radiology attending physician has personally reviewed this study, and has reviewed and/or edited this written report and agrees with it. ACC# Date Time Exam [id number] Jun 28, 2014 14:14:00 [facility] 36665 Diag Mammogram Bilateral Technologist(s): Linda Reza; ; [id number] Jun 28, 2014 14:14:00 [facility] 83510N Bilateral Tomosynthesis Technologist(s): Linda Reza; ; [id number] Jun 28, 2014 14:35:00 [facility] 81167Q Sono Breast (Unilateral) L ACC# Date Time Exam [id number] Jun 28, 2014 14:14:00 [facility] 92122 Diag Mammogram Bilateral Technologist(s): Linda Reza; ; [id number] Jun 28, 2014 14:14:00 [facility] 30800R Bilateral Tomosynthesis Technologist(s): Linda Reza; ; [id number] Jun 28, 2014 14:35:00 [facility] 77960V Sono Breast (Unilateral) L EXAMINATION: BILATERAL FULL FIELD DIGITAL DIAGNOSTIC MAMMOGRAM, BILATERAL DIGITAL BREAST TOMOSYNTHESIS, LEFT BREAST SONOGRAM HISTORY: 63-year-old woman with abnormal outside facility mammogram reportedly demonstrating a 6 mm mass in the 1:00 to 2:00 LEFT breast 3 cm from the nipple. Further evaluation is requested by Dr. Sunshine Parrish, who is seeing the patient in breast surgery clinic today. TECHNIQUE: Full field digital craniocaudal and mediolateral oblique views of both breasts were obtained. Digital breast tomosynthesis was also performed and reviewed as a part of this examination. COMPARISON: [facility] mammograms dated 06/02/2014, 05/24/2014, 05/22/2013, 05/20/2012, 05/08/2011, 04/17/2010, 04/15/2009 BREAST PARENCHYMAL COMPOSITION: There are scattered areas of fibroglandular density. MAMMOGRAM FINDINGS: No suspicious abnormality is seen within either breast on mammogram. SONOGRAM FINDINGS: Targeted sonogram of the upper outer 1:00 to 2:00 left breast was performed. There is no suspicious solid or cystic lesion. On directed physical examination by Dr. Carmita Blevins, there is no suspicious palpable abnormality at this time. IMPRESSION: OVERALL FINAL ASSESSMENT: BI-RADS Category 1: Negative. These findings were discussed with the patient at the conclusion of examination by Dr. Carmita Blevins and delivered in writing to Dr. Sunshine Parrish, who is seeing the patient breast surgery clinic. RECOMMENDATION: Annual screening mammography is recommended, next due in May 2015. Requested By: Dictated By: CARMITA BLEVINS, on Jun 28 2014 3:39P This document has been electronically signed by: ARNOLDO FERNANDES M.D. on Jun 28 2014 3:44P us Historical Provider MD ALONZO US PROCEDURES Final R esult * DIAGNOSTIC MAMMOGRAM 2D BILATERAL (06/28/2014 2:14 PM RACK ROOM WORKER) Anatomical Region Laterality Modality Breast Bilateral Mammography 06/28/2014 2:14 PM RACK ROOM WORKER Narrative 06/28/2014 3:44 PM RACK ROOM WORKER ARNOLDO FERNANDES M.D. CARMITA BLEVINS, FINAL REPORT The radiology attending physician has personally reviewed this study, and has reviewed and/or edited this written report and agrees with it. ACC# ??Date Time ??Exam [id number] Jun 28, 2014 14:14:00 [facility] 55830 Diag Mammogram Bilateral ?? Technologist(s): Linda Reza; ; [id number] Jun 28, 2014 14:14:00 [facility] 41241D Bilateral Tomosynthesis ?? Technologist(s): Linda Reza; ; [id number] Jun 28, 2014 14:35:00 [facility] 83988B Sono Breast (Unilateral) L ACC# ??Date Time ??Exam [id number] Jun 28, 2014 14:14:00 [facility] 45932 Diag Mammogram Bilateral ?? Technologist(s): Linda Reza; ; [id number] Jun 28, 2014 14:14:00 [facility] 57173D Bilateral Tomosynthesis ?? Technologist(s): Linda Reza; ; [id number] Jun 28, 2014 14:35:00 [facility] 06337O Sono Breast (Unilateral) L EXAMINATION: ?? BILATERAL FULL FIELD DIGITAL DIAGNOSTIC MAMMOGRAM, BILATERAL DIGITAL BREAST TOMOSYNTHESIS, LEFT BREAST SONOGRAM HISTORY: 63-year-old woman with abnormal outside facility mammogram reportedly demonstrating a 6 mm mass in the 1:00 to 2:00 LEFT breast 3 cm from the nipple. Further evaluation is requested by Dr. Sunshine Parrish, who is seeing the patient in breast surgery clinic today. TECHNIQUE: ??Full field digital craniocaudal and mediolateral oblique views of both breasts were obtained. ??Digital breast tomosynthesis was also performed and reviewed as a part of this examination. COMPARISON: [facility] mammograms dated 06/02/2014, 05/24/2014, 05/22/2013, 05/20/2012, 05/08/2011, 04/17/2010, 04/15/2009 BREAST PARENCHYMAL COMPOSITION: There are scattered areas of fibroglandular density. MAMMOGRAM FINDINGS: ??No suspicious abnormality is seen within either breast on mammogram. SONOGRAM FINDINGS: Targeted sonogram of the upper outer 1:00 to 2:00 left breast was performed. There is no suspicious solid or cystic lesion. On directed physical examination by Dr. Carmita Blevins, there is no suspicious palpable abnormality at this time. ?? IMPRESSION: OVERALL FINAL ASSESSMENT: ??BI-RADS Category 1: Negative. These findings were discussed with the patient at the conclusion of examination by Dr. Carmita Blevins and delivered in writing to Dr. Sunshine Parrish, who is seeing the patient breast surgery clinic. RECOMMENDATION: ??Annual screening mammography is recommended, next due in May 2015. ?? Requested By: Dictated By: ?? CARMITA BLEVINS, ?? on Jun 28 2014 ??3:39P This document has been electronically signed by: ARNOLDO FERNANDES M.D. on Jun 28 2014 ??3:44P Procedure Note Provider, MD Levon - 11/01/2016 ARNOLDO FERNANDES M.D. CARMITA BLEVINS, FINAL REPORT The radiology attending physician has personally reviewed this study, and has reviewed and/or edited this written report and agrees with it. ACC# Date Time Exam [id number] Jun 28, 2014 14:14:00 [facility] 10814 Diag Mammogram Bilateral Technologist(s): Linda Reza; ; [id number] Jun 28, 2014 14:14:00 [facility] 85041O Bilateral Tomosynthesis Technologist(s): Linda Reza; ; [id number] Jun 28, 2014 14:35:00 [facility] 18262Y Sono Breast (Unilateral) L ACC# Date Time Exam [id number] Jun 28, 2014 14:14:00 [facility] 32137 Diag Mammogram Bilateral Technologist(s): Linda Reza; ; [id number] Jun 28, 2014 14:14:00 [facility] 49516I Bilateral Tomosynthesis Technologist(s): Linda Reza; ; [id number] Jun 28, 2014 14:35:00 [facility] 60091F Sono Breast (Unilateral) L EXAMINATION: BILATERAL FULL FIELD DIGITAL DIAGNOSTIC MAMMOGRAM, BILATERAL DIGITAL BREAST TOMOSYNTHESIS, LEFT BREAST SONOGRAM HISTORY: 63-year-old woman with abnormal outside facility mammogram reportedly demonstrating a 6 mm mass in the 1:00 to 2:00 LEFT breast 3 cm from the nipple. Further evaluation is requested by Dr. Sunshine Parrish, who is seeing the patient in breast surgery clinic today. TECHNIQUE: Full field digital craniocaudal and mediolateral oblique views of both breasts were obtained. Digital breast tomosynthesis was also performed and reviewed as a part of this examination. COMPARISON: [facility] mammograms dated 06/02/2014, 05/24/2014, 05/22/2013, 05/20/2012, 05/08/2011, 04/17/2010, 04/15/2009 BREAST PARENCHYMAL COMPOSITION: There are scattered areas of fibroglandular density. MAMMOGRAM FINDINGS: No suspicious abnormality is seen within either breast on mammogram. SONOGRAM FINDINGS: Targeted sonogram of the upper outer 1:00 to 2:00 left breast was performed. There is no suspicious solid or cystic lesion. On directed physical examination by Dr. Carmita Blevins, there is no suspicious palpable abnormality at this time. IMPRESSION: OVERALL FINAL ASSESSMENT: BI-RADS Category 1: Negative. These findings were discussed with the patient at the conclusion of examination by Dr. Carmita Blevins and delivered in writing to Dr. Sunshine Parrish, who is seeing the patient breast surgery clinic. RECOMMENDATION: Annual screening mammography is recommended, next due in May 2015. Requested By: Dictated By: CARMITA BLEVINS, on Jun 28 2014 3:39P This document has been electronically signed by: ARNOLDO FERNANDES M.D. on Jun 28 2014 3:44P us Historical Provider MD ALONZO MAMMO PROCEDURES Mel l Result * Screening Mammogram W Khanh (06/28/2014 2:14 PM RACK ROOM WORKER) Anatomical Region Laterality Modality Breast N/A Mammography 06/28/2014 2:14 PM RACK ROOM WORKER Narrative 06/28/2014 3:44 PM RACK ROOM WORKER ARNOLDO FERNANDES M.D. CARMITA BLEVINS, FINAL REPORT The radiology attending physician has personally reviewed this study, and has reviewed and/or edited this written report and agrees with it. ACC# ??Date Time ??Exam [id number] Jun 28, 2014 14:14:00 [facility] 56173 Diag Mammogram Bilateral ?? Technologist(s): Linda Reza; ; [id number] Jun 28, 2014 14:14:00 [facility] 02458D Bilateral Tomosynthesis ?? Technologist(s): Linda Reza; ; [id number] Jun 28, 2014 14:35:00 [facility] 05943V Sono Breast (Unilateral) L ACC# ??Date Time ??Exam [id number] Jun 28, 2014 14:14:00 [facility] 28828 Diag Mammogram Bilateral ?? Technologist(s): Linda Reza; ; [id number] Jun 28, 2014 14:14:00 [facility] 06758V Bilateral Tomosynthesis ?? Technologist(s): Linda Reza; ; [id number] Jun 28, 2014 14:35:00 [facility] 32121B Sono Breast (Unilateral) L EXAMINATION: ?? BILATERAL FULL FIELD DIGITAL DIAGNOSTIC MAMMOGRAM, BILATERAL DIGITAL BREAST TOMOSYNTHESIS, LEFT BREAST SONOGRAM HISTORY: 63-year-old woman with abnormal outside facility mammogram reportedly demonstrating a 6 mm mass in the 1:00 to 2:00 LEFT breast 3 cm from the nipple. Further evaluation is requested by Dr. Sunshine Parrish, who is seeing the patient in breast surgery clinic today. TECHNIQUE: ??Full field digital craniocaudal and mediolateral oblique views of both breasts were obtained. ??Digital breast tomosynthesis was also performed and reviewed as a part of this examination. COMPARISON: [facility] mammograms dated 06/02/2014, 05/24/2014, 05/22/2013, 05/20/2012, 05/08/2011, 04/17/2010, 04/15/2009 BREAST PARENCHYMAL COMPOSITION: There are scattered areas of fibroglandular density. MAMMOGRAM FINDINGS: ??No suspicious abnormality is seen within either breast on mammogram. SONOGRAM FINDINGS: Targeted sonogram of the upper outer 1:00 to 2:00 left breast was performed. There is no suspicious solid or cystic lesion. On directed physical examination by Dr. Carmita Blevins, there is no suspicious palpable abnormality at this time. ?? IMPRESSION: OVERALL FINAL ASSESSMENT: ??BI-RADS Category 1: Negative. These findings were discussed with the patient at the conclusion of examination by Dr. Carmita Blevins and delivered in writing to Dr. Sunshine Parrish, who is seeing the patient breast surgery clinic. RECOMMENDATION: ??Annual screening mammography is recommended, next due in May 2015. ?? Requested By: Dictated By: ?? CARMITA BLEVINS, ?? on Jun 28 2014 ??3:39P This document has been electronically signed by: ARNOLDO FERNANDES M.D. on Jun 28 2014 ??3:44P Procedure Note Provider, MD Levon - 11/01/2016 ARNOLDO FERNANDES M.D. CARMITA BLEVINS, FINAL REPORT The radiology attending physician has personally reviewed this study, and has reviewed and/or edited this written report and agrees with it. ACC# Date Time Exam [id number] Jun 28, 2014 14:14:00 [facility] 12136 Diag Mammogram Bilateral Technologist(s): Linda Reza; ; [id number] Jun 28, 2014 14:14:00 [facility] 28786L Bilateral Tomosynthesis Technologist(s): Linda Reza; ; [id number] Jun 28, 2014 14:35:00 [facility] 09980E Sono Breast (Unilateral) L ACC# Date Time Exam [id number] Jun 28, 2014 14:14:00 [facility] 46405 Diag Mammogram Bilateral Technologist(s): Linda Reza; ; [id number] Jun 28, 2014 14:14:00 [facility] 07485C Bilateral Tomosynthesis Technologist(s): Linda Reza; ; [id number] Jun 28, 2014 14:35:00 [facility] 33782Y Sono Breast (Unilateral) L EXAMINATION: BILATERAL FULL FIELD DIGITAL DIAGNOSTIC MAMMOGRAM, BILATERAL DIGITAL BREAST TOMOSYNTHESIS, LEFT BREAST SONOGRAM HISTORY: 63-year-old woman with abnormal outside facility mammogram reportedly demonstrating a 6 mm mass in the 1:00 to 2:00 LEFT breast 3 cm from the nipple. Further evaluation is requested by Dr. Sunshine Parrish, who is seeing the patient in breast surgery clinic today. TECHNIQUE: Full field digital craniocaudal and mediolateral oblique views of both breasts were obtained. Digital breast tomosynthesis was also performed and reviewed as a part of this examination. COMPARISON: [facility] mammograms dated 06/02/2014, 05/24/2014, 05/22/2013, 05/20/2012, 05/08/2011, 04/17/2010, 04/15/2009 BREAST PARENCHYMAL COMPOSITION: There are scattered areas of fibroglandular density. MAMMOGRAM FINDINGS: No suspicious abnormality is seen within either breast on mammogram. SONOGRAM FINDINGS: Targeted sonogram of the upper outer 1:00 to 2:00 left breast was performed. There is no suspicious solid or cystic lesion. On directed physical examination by Dr. Carmita Blevins, there is no suspicious palpable abnormality at this time. IMPRESSION: OVERALL FINAL ASSESSMENT: BI-RADS Category 1: Negative. These findings were discussed with the patient at the conclusion of examination by Dr. Carmita Blevins and delivered in writing to Dr. Sunshnie Parrish, who is seeing the patient breast surgery clinic. RECOMMENDATION: Annual screening mammography is recommended, next due in May 2015. Requested By: Dictated By: CARMITA BLEVINS, on Jun 28 2014 3:39P This document has been electronically signed by: ARNOLDO FERNANDES M.D. on Jun 28 2014 3:44P Historical Provider MD ALONZO MAMMO PROCEDURES Mel l Result documented in this encounter Visit Diagnoses Diagnosis Lump or mass in breast documented in this encounter
--- OUTSIDE RECORDS SUMMARY | 2024-06-25 22:39 | XMS_ITS | Encounter Summary ---
Author Organization [facility] Facility Care Team Providers Care Claim Clinician Name Role Phone Unavailable Primary Care Provider Unavailabl e Encounter Details Date Type Department Care Team (Late st Contact Info) Description 11/04/2015 - 11/04/2015 11:59 PM CDT Hospital Encounter [facility] Eren De Paz MD [address] [facility] [id number] [place] [address] Other malignant neuroendocrine tumors (HCC); Liver disease; Soft tissue disorder; Acquired absence of other genital organ(s); Acquired absence of both ovaries; Acquired absence of other specified parts of digestive tract Social History Tobacco Use Types Packs/Day Years Used Date Smoking Tobacco: Never Assessed Comments Unknown Sex and Gender Information Value Date Recorded Sex Assigned at Not on file Legal Sex Female 2:41 PM [employer] Gender Identity Not on file Sexual Orientation Straight 02/19/2021 9: 29 AM CDT documented as of this encounter Plan of Treatment Not on file documented as of this encounter Procedures Procedure Name Priority Date/Time Associated Diagnosis Comments MRI ABDOMEN W WO CONTRAST Routine 2015 7:07 PM CDT MRI PELVIS W WO CONTRAST Routine 016 7:[address] CHEST W CONTRAST Routine 11/04/2015 4 :17 PM CDT TUMOR IMAGING, SPECT Routine 11/04/2015 12:10 PM CDT NM TUMOR OR RADIOPHARMACEUTICAL DISTRIBUTION IMAGING (SPECT) Routine 11/04/2015 12:10 PM CDT NM TUMOR IMAGING (WHOLE BODY 1 DAY) Routine 11/04/2015 12:10 PM CDT documented in this encounter Results * MRI Abdomen WWO Contrast (11/04/2015 7:07 PM CDT) Anatomical Region Laterality Modality Body N/A Magnetic Resonan ce 11/04/2015 7:07 PM CDT Narrative 2015 2:53 PM CDT Chapito WASSREMAN M.D. FINAL REPORT The radiology attending physician has personally reviewed this study, and has reviewed and/or edited this written report and agrees with it. ACC# ??Date Time ??Exam [id number] Nov 04, 2015 19:07:00 [id number] MRI Pelvis wo&with cont [id number] Nov 04, 2015 19:07:00 85437 MRI Abdomen wwo contrast EXAMINATION: ?? 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 TECHNIQUE: ??MRI of the abdomen was performed following intravenous administration of gadolinium contrast. MRI of the pelvis was performed prior to and following intravenous administration of gadolinium contrast. Protocol: Pelvis dynamic, abdomen post Estimated GFR: Greater than 60 ml/min/1.73 meters squared Creatinine: 0.9 mg/dL Contrast: Dotarem, 16 ml, single dose FINDINGS: Comparison: ??CT abdomen and pelvis 08/24/2015. Abdomen: No evidence of cirrhosis or hepatic steatosis. A 9 mm lesion in hepatic segment 7 (series 15, image 10) is mildly T2 hyperintense with diffusion restriction consistent with a metastatic lesion. There are multiple T1 hypointense, enhancing nodules along the surface of hepatic segment 6 which measured 8 and 4 mm respectively (series 7, image 41). These findings have corresponding diffusion restriction and are consistent with serosal metastases. There is no intra or extrahepatic bile duct dilation. Gallbladder, pancreas, spleen and adrenal glands appear normal. There is an exophytic cyst off of the interpolar region of the right kidney. No hydronephrosis. Postoperative changes of right hemicolectomy are demonstrated. Pelvis: Postoperative changes of bilateral salpingo-oophorectomy and hysterectomy are noted. There is nodular soft tissue enhancement along the left aspect of the vaginal cuff suspicious for local recurrence (series 23, image 32; series 24, image 37). The urinary bladder, sigmoid and rectum are unremarkable. There is no lymphadenopathy appreciated. IMPRESSION: ?? 1. Hepatic segment 7 lesion demonstrating mild T2 hyperintensity and diffusion restriction consistent with a metastatic focus. 2. Enhancing nodules with diffusion restriction along the surface of the hepatic segment 6 consistent with serosal metastatic deposits. 3. Nodular soft tissue enhancement along the left aspect of the vaginal cuff suspicious for local recurrence; correlate with physical examination and attention on follow up examinations. Requested By: EREN WU M.D. Dictated By: ?? SUDHA CALLOWYA M.D. ??on 2015 11:09A This document has been electronically signed by: FERNANDO DUBON M.D. on 2015 ??2:53P [id number] Procedure Note Provider, MD Levon - 11/01/2016 Chapito WASSERMAN M.D. FINAL REPORT The radiology attending physician has personally reviewed this study, and has reviewed and/or edited this written report and agrees with it. ACC# Date Time Exam [id number] Nov 04, 2015 19:07:00 53056 MRI Pelvis wo&with cont [id number] Nov 04, 2015 19:07:00 69975 MRI Abdomen wwo contrast EXAMINATION: MAGNETIC RESONANCE IMAGING OF THE ABDOMEN WITH CONTRAST MAGNETIC RESONANCE IMAGING OF THE PELVIS WITH AND WITHOUT CONTRAST HISTORY: 64-year-old woman post right hemicolectomy, bilateral salpingo-oophorectomy and partial omentectomy 10/03/2015 for metastatic carcinoid tumor. TECHNIQUE: MRI of the abdomen was performed following intravenous administration of gadolinium contrast. MRI of the pelvis was performed prior to and following intravenous administration of gadoliniumcontrast. Protocol: Pelvis dynamic, abdomen post Estimated GFR: Greater than 60 ml/min/1.73 meters squared Creatinine: 0.9 mg/dL Contrast: Dotarem, 16 ml, single dose FINDINGS: Comparison: CT abdomen and pelvis 08/24/2015. Abdomen: No evidence of cirrhosis or hepatic steatosis. A 9 mm lesion in hepatic segment 7 (series 15, image 10) is mildly T2 hyperintense with diffusion restriction consistent with a metastatic lesion. There are multiple T1 hypointense, enhancing nodules along the surface of hepatic segment 6 which measured 8 and 4 mm respectively (series 7, image 41). These findings have corresponding diffusion restriction and are consistent with serosal metastases. There is no intra or extrahepatic bile duct dilation. Gallbladder, pancreas, spleen and adrenal glands appear normal. There is an exophytic cyst off of the interpolar region of the right kidney. Nohydronephrosis. Postoperative changes of right hemicolectomy are demonstrated. Pelvis: Postoperative changes of bilateral salpingo-oophorectomy and hysterectomy are noted. There is nodular soft tissue enhancement along the left aspect of the vaginal cuff suspicious for local recurrence (series 23, image 32; series 24, image 37). The urinary bladder, sigmoid and rectum are unremarkable. There is no lymphadenopathy appreciated. IMPRESSION: 1. Hepatic segment 7 lesion demonstrating mild T2 hyperintensity and diffusion restriction consistent with a metastatic focus. 2. Enhancing nodules with diffusion restriction along the surface of the hepatic segment 6 consistent with serosal metastatic deposits. 3. Nodular soft tissue enhancement along the left aspect of the vaginal cuff suspicious for local recurrence; correlate with physical examination and attention on follow up examinations. Requested By: EREN WU M.D. Dictated By: SUDHA CALLOWAY M.D. on 2015 11:09A This document has been electronically signed by: FERNANDO DUBON M.D. on 2015 2:53P [id number] us Historical Provider MD [facility] MRI PROCEDURES Final Result * MRI Pelvis WWO Contrast (11/04/2015 7:07 PM CDT) Anatomical Region Laterality Modality Body N/A Magnetic Resonan ce 11/04/2015 7:07 PM CDT Narrative 2015 2:53 PM CDT FERNANDO DUBON M.D. SUDHA CALLOWAY M.D. FINAL REPORT The radiology attending physician has personally reviewed this study, and has reviewed and/or edited this written report and agrees with it. ACC# ??Date Time ??Exam [id number] Nov 04, 2015 19:07:00 [id number] MRI Pelvis wo&with cont [id number] Nov 04, 2015 19:07:00 35453 MRI Abdomen wwo contrast EXAMINATION: ?? 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 TECHNIQUE: ??MRI of the abdomen was performed following intravenous administration of gadolinium contrast. MRI of the pelvis was performed prior to and following intravenous administration of gadolinium contrast. Protocol: Pelvis dynamic, abdomen post Estimated GFR: Greater than 60 ml/min/1.73 meters squared Creatinine: 0.9 mg/dL Contrast: Dotarem, 16 ml, single dose FINDINGS: Comparison: ??CT abdomen and pelvis 08/24/2015. Abdomen: No evidence of cirrhosis or hepatic steatosis. A 9 mm lesion in hepatic segment 7 (series 15, image 10) is mildly T2 hyperintense with diffusion restriction consistent with a metastatic lesion. There are multiple T1 hypointense, enhancing nodules along the surface of hepatic segment 6 which measured 8 and 4 mm respectively (series 7, image 41). These findings have corresponding diffusion restriction and are consistent with serosal metastases. There is no intra or extrahepatic bile duct dilation. Gallbladder, pancreas, spleen and adrenal glands appear normal. There is an exophytic cyst off of the interpolar region of the right kidney. No hydronephrosis. Postoperative changes of right hemicolectomy are demonstrated. Pelvis: Postoperative changes of bilateral salpingo-oophorectomy and hysterectomy are noted. There is nodular soft tissue enhancement along the left aspect of the vaginal cuff suspicious for local recurrence (series 23, image 32; series 24, image 37). The urinary bladder, sigmoid and rectum are unremarkable. There is no lymphadenopathy appreciated. IMPRESSION: ?? 1. Hepatic segment 7 lesion demonstrating mild T2 hyperintensity and diffusion restriction consistent with a metastatic focus. 2. Enhancing nodules with diffusion restriction along the surface of the hepatic segment 6 consistent with serosal metastatic deposits. 3. Nodular soft tissue enhancement along the left aspect of the vaginal cuff suspicious for local recurrence; correlate with physical examination and attention on follow up examinations. Requested By: EREN WU M.D. Dictated By: ?? SUDHA CALLOWAY M.D. ??on 2015 11:09A This document has been electronically signed by: FERNANDO DUBON M.D. on 2015 ??2:53P Procedure Note Provider, MD Levon - 11/01/2016 Chapito WASSERMAN M.D. FINAL REPORT The radiology attending physician has personally reviewed this study, and has reviewed and/or edited this written report and agrees with it. ACC# Date Time Exam [id number] Nov 04, 2015 19:07:00 95623 MRI Pelvis wo&with cont [id number] Nov 04, 2015 19:07:00 66809 MRI Abdomen wwo contrast EXAMINATION: MAGNETIC RESONANCE IMAGING OF THE ABDOMEN WITH CONTRAST MAGNETIC RESONANCE IMAGING OF THE PELVIS WITH AND WITHOUT CONTRAST HISTORY: 64-year-old woman post right hemicolectomy, bilateral salpingo-oophorectomy and partial omentectomy 10/03/2015 for metastatic carcinoid tumor. TECHNIQUE: MRI of the abdomen was performed following intravenous administration of gadolinium contrast. MRI of the pelvis was performed prior to and following intravenous administration of gadoliniumcontrast. Protocol: Pelvis dynamic, abdomen post Estimated GFR: Greater than 60 ml/min/1.73 meters squared Creatinine: 0.9 mg/dL Contrast: Dotarem, 16 ml, single dose FINDINGS: Comparison: CT abdomen and pelvis 08/24/2015. Abdomen: No evidence of cirrhosis or hepatic steatosis. A 9 mm lesion in hepatic segment 7 (series 15, image 10) is mildly T2 hyperintense with diffusion restriction consistent with a metastatic lesion. There are multiple T1 hypointense, enhancing nodules along the surface of hepatic segment 6 which measured 8 and 4 mm respectively (series 7, image 41). These findings have corresponding diffusion restriction and are consistent with serosal metastases. There is no intra or extrahepatic bile duct dilation. Gallbladder, pancreas, spleen and adrenal glands appear normal. There is an exophytic cyst off of the interpolar region of the right kidney. Nohydronephrosis. Postoperative changes of right hemicolectomy are demonstrated. Pelvis: Postoperative changes of bilateral salpingo-oophorectomy and hysterectomy are noted. There is nodular soft tissue enhancement along the left aspect of the vaginal cuff suspicious for local recurrence (series 23, image 32; series 24, image 37). The urinary bladder, sigmoid and rectum are unremarkable. There is no lymphadenopathy appreciated. IMPRESSION: 1. Hepatic segment 7 lesion demonstrating mild T2 hyperintensity and diffusion restriction consistent with a metastatic focus. 2. Enhancing nodules with diffusion restriction along the surface of the hepatic segment 6 consistent with serosal metastatic deposits. 3. Nodular soft tissue enhancement along the left aspect of the vaginal cuff suspicious for local recurrence; correlate with physical examination and attention on follow up examinations. Requested By: EREN WU M.D. Dictated By: SUDHA CALLOWAY M.D. on 2015 11:09A This document has been electronically signed by: FERNANDO DUBON M.D. on 2015 2:53P us Historical Provider MD [facility] MRI PROCEDURES Final Result * CT Chest W Contrast (11/04/2015 4:17 PM CDT) Anatomical Region Laterality Modality Body N/A Computed Tomogra phy 11/04/2015 4:17 PM CDT Narrative 11/04/2015 5:25 PM CDT CUATE CRUZ M.D. RACHEL FERNANDES M.D. FINAL REPORT The radiology attending physician has personally reviewed this study, and has reviewed and/or edited this written report and agrees with it. ACC# ??Date Time ??Exam [id number] Nov 04, 2015 16:17:[address] Chest with contrast EXAMINATION: ?? 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 TECHNIQUE: Computed tomography images of the chest were obtained according to the standard protocol after the uneventful intravenous administration of Optiray 350 94 mL. COMPARISON: None. FINDINGS: ?? There is no pulmonary nodule or mass. There is no pleural effusion, pneumothorax, pneumonia, or pulmonary edema. The airways are patent. There is no mediastinal, supraclavicular, or axillary lymphadenopathy. The heart size is normal. An area of fat in the cardiac apex likely represents prior infarction. There is no pericardial effusion. The ascending aorta and main pulmonary artery are normal in caliber. There is an aberrant right subclavian artery. There is a cyst in the right kidney. The visualized upper abdomen is otherwise unremarkable. There is no fracture. There is no suspicious lytic or blastic osseous lesion. IMPRESSION: ?? No evidence of metastatic disease in the chest. Requested By: Dictated By: ?? RACHEL FERNANDES M.D. ??on Nov 04 2015 ??4:29P This document has been electronically signed by: CUATE CRUZ M.D. on Nov 04 2015 ??5:25P [id number] Procedure Note Provider, MD Levon - 11/01/2016 CUATE CRUZ M.D. RACHEL FERNANDES M.D. FINAL REPORT The radiology attending physician has personally reviewed this study, and has reviewed and/or edited this written report and agrees with it. 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 TECHNIQUE: Computed tomography images of the chest were obtained according to the standard protocol after the uneventful intravenous administration of Optiray 350 94 mL. COMPARISON: None. FINDINGS: There is no pulmonary nodule or mass. There is no pleural effusion, pneumothorax, pneumonia, or pulmonary edema. The airways are patent. There is no mediastinal, supraclavicular, or axillary lymphadenopathy. The heart size is normal. An area of fat in the cardiac apex likely represents prior infarction. There is no pericardial effusion. The ascending aorta and main pulmonary artery are normal in caliber. There is an aberrant right subclavian artery. There is a cyst in the right kidney. The visualized upper abdomen is otherwise unremarkable. There is no fracture. There is no suspicious lytic or blastic osseous lesion. IMPRESSION: No evidence of metastatic disease in the chest. Requested By: Dictated By: RACHEL FERNANDES M.D. on Nov 04 2015 4:29P This document has been electronically signed by: CUATE CRUZ M.D. on Nov 04 2015 5:25P [id number] us Historical Provider MD ALONZO CT PROCEDURES Final R esult * NM Whole Body Tumor Scan 1 Day (11/04/2015 12:10 PM CDT) Anatomical Region Laterality Modality N/A Nuclear Medicine 11/04/2015 12:1 0 PM CDT Narrative 2015 12:22 AM CDT TACOS CALDERA M.D. CHEKO DUMONT M.D. FINAL REPORT The radiology attending physician has personally reviewed this study, and has reviewed and/or edited this written report and agrees with it. ACC# ??Date Time ??Exam [id number] Nov 04, 2015 12:10:00 08306 WB Tumor Img 2+ [id number] Nov 04, 2015 12:10:00 26446 Seng Tumor Imgg [id number] Nov 04, 2015 12:10:00 Tumor Lclz: SPECT/CT Suppl 25782 EXAMINATION: ?SOMATOSTATIN-RECEPTOR SCINTIGRAPHY (WITH TOMOGRAPHIC IMAGING) ?? DATE STARTED: ??11/03/2015 DATE COMPLETED: ??11/04/2015 RADIOPHARMACEUTICAL: ??5.8 mCi In-111 pentetreotide i.v. HISTORY: ??64-year-old woman with right pelvic sidewall, bilateral ovary and fallopian tube, and terminal ileum neuroendocrine tumor. She is status post exploratory laparotomy, bilateral salpingo-oophorectomy, and right colectomy. FINDINGS: ??Whole-body planar images were obtained approximately 4 hours and 24 hours after injection of In-111 pentetreotide. ??Tomographic (SPECT/CT) images of the abdomen and pelvis (superior liver was excluded) were obtained the following day after the second set of planar images. (The noncontrast CT images are used for attenuation correction and for fusion with emission SPECT images to allow for anatomical localization of SPECT findings.) Comparison was made with CT of the abdomen and pelvis performed to 08/17/2015. There is expected In-111 pentetreotide activity in the spleen, kidneys, and liver. ??No foci of abnormal In-111 pentetreotide accumulation are seen. The noncontrast CT images demonstrate no foci of abnormal In-111 pentetreotide accumulation. The visualized portions of the liver and spleen are normal. The gallbladder is surgically absent. The pancreas and left kidney are normal. There is a right renal cyst, unchanged in the prior CT. No lymphadenopathy is seen. No suspicious lytic or blastic osseous lesions are seen. Postoperative changes of the patient's recent bilateral salpingo-oophorectomy and right colectomy are seen. Degenerative changes of L5-S1 are noted. ?? IMPRESSION: ?No evidence for latljbipkgvd-grbghvji-ngezlzfh tumor. ?? Requested By: Dictated By: ?? CHEKO DUMONT M.D. ??on Nov 04 2015 ??4:15P This document has been electronically signed by: TACOS CALDERA M.D. on 2015 12:22A [id number] Procedure Note Provider, MD Levon - 11/01/2016 Chapito MEDINA M.D. FINAL REPORT The radiology attending physician has personally reviewed this study, and has reviewed and/or edited this written report and agrees with it. ACC# Date Time Exam [id number] Nov 04, 2015 12:10:00 06445 WB Tumor Img 2+ [id number] Nov 04, 2015 12:10:00 07803 Seng Tumor Imgg [id number] Nov 04, 2015 12:10:00 Tumor Lclz: SPECT/CT Suppl 94458 EXAMINATION: SOMATOSTATIN-RECEPTOR SCINTIGRAPHY (WITH TOMOGRAPHIC IMAGING) DATE STARTED: 11/03/2015 DATE COMPLETED: 11/04/2015 RADIOPHARMACEUTICAL: 5.8 mCi In-111 pentetreotide i.v. HISTORY: 64-year-old woman with right pelvic sidewall, bilateral ovary and fallopian tube, and terminal ileum neuroendocrine tumor. She is status post exploratory laparotomy, bilateral salpingo-oophorectomy, and right colectomy. FINDINGS: Whole-body planar images were obtained approximately 4 hours and 24 hours after injection of In-111 pentetreotide. Tomographic (SPECT/CT) images of the abdomen and pelvis (superior liver was excluded) were obtained the following day after the second set of planar images. (The noncontrast CT images are used for attenuation correction and for fusion with emission SPECT images to allow for anatomical localization of SPECT findings.) Comparison was made with CT of the abdomen and pelvis performed to 08/17/2015. There is expected In-111 pentetreotide activity in the spleen, kidneys, and liver. No foci of abnormal In-111 pentetreotide accumulation are seen. The noncontrast CT images demonstrate no foci of abnormal In-111 pentetreotide accumulation. The visualized portions of the liver and spleen are normal. The gallbladder is surgically absent. The pancreas and left kidney are normal. There is a right renal cyst, unchanged in the prior CT. No lymphadenopathy is seen. No suspicious lytic or blastic osseous lesions are seen. Postoperative changes of the patient's recent bilateral salpingo-oophorectomy and right colectomy are seen. Degenerative changes of L5-S1 are noted. IMPRESSION: No evidence for oozmbxuphuxd-yoklmptz-vmyoguls tumor. Requested By: Dictated By: CHEKO DUMONT M.D. on Nov 04 2015 4:15P This document has been electronically signed by: TAOCS CALDERA M.D. on 2015 12:22A [id number] us Historical Provider MD [facility] NM PROCEDURES Final R esult * TUMOR IMAGING, SPECT (11/04/2015 12:10 PM CDT) Anatomical Region Laterality Modality N/A Nuclear Medicine 11/04/2015 12:1 0 PM CDT Narrative 2015 12:22 AM CDT Chapito MEDINA M.D. FINAL REPORT The radiology attending physician has personally reviewed this study, and has reviewed and/or edited this written report and agrees with it. ACC# ??Date Time ??Exam [id number] Nov 04, 2015 12:10:00 62844 WB Tumor Img 2+ [id number] Nov 04, 2015 12:10:00 47822 Seng Tumor Imgg [id number] Nov 04, 2015 12:10:00 Tumor Lclz: SPECT/CT Suppl 28574 EXAMINATION: ?SOMATOSTATIN-RECEPTOR SCINTIGRAPHY (WITH TOMOGRAPHIC IMAGING) ?? DATE STARTED: ??11/03/2015 DATE COMPLETED: ??11/04/2015 RADIOPHARMACEUTICAL: ??5.8 mCi In-111 pentetreotide i.v. HISTORY: ??64-year-old woman with right pelvic sidewall, bilateral ovary and fallopian tube, and terminal ileum neuroendocrine tumor. She is status post exploratory laparotomy, bilateral salpingo-oophorectomy, and right colectomy. FINDINGS: ??Whole-body planar images were obtained approximately 4 hours and 24 hours after injection of In-111 pentetreotide. ??Tomographic (SPECT/CT) images of the abdomen and pelvis (superior liver was excluded) were obtained the following day after the second set of planar images. (The noncontrast CT images are used for attenuation correction and for fusion with emission SPECT images to allow for anatomical localization of SPECT findings.) Comparison was made with CT of the abdomen and pelvis performed to 08/17/2015. There is expected In-111 pentetreotide activity in the spleen, kidneys, and liver. ??No foci of abnormal In-111 pentetreotide accumulation are seen. The noncontrast CT images demonstrate no foci of abnormal In-111 pentetreotide accumulation. The visualized portions of the liver and spleen are normal. The gallbladder is surgically absent. The pancreas and left kidney are normal. There is a right renal cyst, unchanged in the prior CT. No lymphadenopathy is seen. No suspicious lytic or blastic osseous lesions are seen. Postoperative changes of the patient's recent bilateral salpingo-oophorectomy and right colectomy are seen. Degenerative changes of L5-S1 are noted. ?? IMPRESSION: ?No evidence for iqkfrtrfnqlv-rsxkshga-qkljrvtx tumor. ?? Requested By: Dictated By: ?? CHEKO DUMONT M.D. ??on Nov 04 2015 ??4:15P This document has been electronically signed by: TACOS CALDERA M.D. on 2015 12:22A [id number] Procedure Note Provider, MD Levon - 11/01/2016 TACOS CALDERA, M.D. CHEKO OBLANC, M.D. FINAL REPORT The radiology attending physician has personally reviewed this study, and has reviewed and/or edited this written report and agrees with it. ACC# Date Time Exam [id number] Nov 04, 2015 12:10:00 15181 WB Tumor Img 2+ [id number] Nov 04, 2015 12:10:00 99206 Seng Tumor Imgg [id number] Nov 04, 2015 12:10:00 Tumor Lclz: SPECT/CT Suppl [id number] EXAMINATION: SOMATOSTATIN-RECEPTOR SCINTIGRAPHY (WITH TOMOGRAPHIC IMAGING) DATE STARTED: 11/03/2015 DATE COMPLETED: 11/04/2015 RADIOPHARMACEUTICAL: 5.8 mCi In-111 pentetreotide i.v. HISTORY: 64-year-old woman with right pelvic sidewall, bilateral ovary and fallopian tube, and terminal ileum neuroendocrine tumor. She is status post exploratory laparotomy, bilateral salpingo-oophorectomy, and right colectomy. FINDINGS: Whole-body planar images were obtained approximately 4 hours and 24 hours after injection of In-111 pentetreotide. Tomographic (SPECT/CT) images of the abdomen and pelvis (superior liver was excluded) were obtained the following day after the second set of planar images. (The noncontrast CT images are used for attenuation correction and for fusion with emission SPECT images to allow for anatomical localization of SPECT findings.) Comparison was made with CT of the abdomen and pelvis performed to 08/17/2015. There is expected In-111 pentetreotide activity in the spleen, kidneys, and liver. No foci of abnormal In-111 pentetreotide accumulation are seen. The noncontrast CT images demonstrate no foci of abnormal In-111 pentetreotide accumulation. The visualized portions of the liver and spleen are normal. The gallbladder is surgically absent. The pancreas and left kidney are normal. There is a right renal cyst, unchanged in the prior CT. No lymphadenopathy is seen. No suspicious lytic or blastic osseous lesions are seen. Postoperative changes of the patient's recent bilateral salpingo-oophorectomy and right colectomy are seen. Degenerative changes of L5-S1 are noted. IMPRESSION: No evidence for iqgnusstcpzx-nmjdldzd-tzryxlsn tumor. Requested By: Dictated By: CHEKO DUMONT M.D. on Nov 04 2015 4:15P This document has been electronically signed by: TACOS CALDERA M.D. on 2015 12:22A [id number] us Historical Provider MD ALONZO NM PROCEDURES Final R esult * NM Tumor Scan SPECT (11/04/2015 12:10 PM CDT) Anatomical Region Laterality Modality N/A Nuclear Medicine 11/04/2015 12:1 0 PM CDT Narrative 2015 12:22 AM CDT TACOS CALDERA M.D. CHEKO DUMONT M.D. FINAL REPORT The radiology attending physician has personally reviewed this study, and has reviewed and/or edited this written report and agrees with it. ACC# ??Date Time ??Exam [id number] Nov 04, 2015 12:10:00 [id number] WB Tumor Img 2+ [id number] Nov 04, 2015 12:10:00 22985 Seng Tumor Imgg [id number] Nov 04, 2015 12:10:00 Tumor Lclz: SPECT/CT Suppl 35413 EXAMINATION: ?SOMATOSTATIN-RECEPTOR SCINTIGRAPHY (WITH TOMOGRAPHIC IMAGING) ?? DATE STARTED: ??11/03/2015 DATE COMPLETED: ??11/04/2015 RADIOPHARMACEUTICAL: ??5.8 mCi In-111 pentetreotide i.v. HISTORY: ??64-year-old woman with right pelvic sidewall, bilateral ovary and fallopian tube, and terminal ileum neuroendocrine tumor. She is status post exploratory laparotomy, bilateral salpingo-oophorectomy, and right colectomy. FINDINGS: ??Whole-body planar images were obtained approximately 4 hours and 24 hours after injection of In-111 pentetreotide. ??Tomographic (SPECT/CT) images of the abdomen and pelvis (superior liver was excluded) were obtained the following day after the second set of planar images. (The noncontrast CT images are used for attenuation correction and for fusion with emission SPECT images to allow for anatomical localization of SPECT findings.) Comparison was made with CT of the abdomen and pelvis performed to 08/17/2015. There is expected In-111 pentetreotide activity in the spleen, kidneys, and liver. ??No foci of abnormal In-111 pentetreotide accumulation are seen. The noncontrast CT images demonstrate no foci of abnormal In-111 pentetreotide accumulation. The visualized portions of the liver and spleen are normal. The gallbladder is surgically absent. The pancreas and left kidney are normal. There is a right renal cyst, unchanged in the prior CT. No lymphadenopathy is seen. No suspicious lytic or blastic osseous lesions are seen. Postoperative changes of the patient's recent bilateral salpingo-oophorectomy and right colectomy are seen. Degenerative changes of L5-S1 are noted. ?? IMPRESSION: ?No evidence for xvezvjwbcdwh-fkjhkvga-tqekyhsq tumor. ?? Requested By: Dictated By: ?? CHEKO DUMONT M.D. ??on Nov 04 2015 ??4:15P This document has been electronically signed by: TACOS CALDERA M.D. on 2015 12:22A [id number] Procedure Note Provider, MD Levon - 11/01/2016 Chapito MEDINA M.D. FINAL REPORT The radiology attending physician has personally reviewed this study, and has reviewed and/or edited this written report and agrees with it. ACC# Date Time Exam [id number] Nov 04, 2015 12:10:00 [id number] WB Tumor Img 2+ [id number] Nov 04, 2015 12:10:00 49849 Seng Tumor Imgg [id number] Nov 04, 2015 12:10:00 Tumor Lclz: SPECT/CT Suppl [id number] EXAMINATION: SOMATOSTATIN-RECEPTOR SCINTIGRAPHY (WITH TOMOGRAPHIC IMAGING) DATE STARTED: 11/03/2015 DATE COMPLETED: 11/04/2015 RADIOPHARMACEUTICAL: 5.8 mCi In-111 pentetreotide i.v. HISTORY: 64-year-old woman with right pelvic sidewall, bilateral ovary and fallopian tube, and terminal ileum neuroendocrine tumor. She is status post exploratory laparotomy, bilateral salpingo-oophorectomy, and right colectomy. FINDINGS: Whole-body planar images were obtained approximately 4 hours and 24 hours after injection of In-111 pentetreotide. Tomographic (SPECT/CT) images of the abdomen and pelvis (superior liver was excluded) were obtained the following day after the second set of planar images. (The noncontrast CT images are used for attenuation correction and for fusion with emission SPECT images to allow for anatomical localization of SPECT findings.) Comparison was made with CT of the abdomen and pelvis performed to 08/17/2015. There is expected In-111 pentetreotide activity in the spleen, kidneys, and liver. No foci of abnormal In-111 pentetreotide accumulation are seen. The noncontrast CT images demonstrate no foci of abnormal In-111 pentetreotide accumulation. The visualized portions of the liver and spleen are normal. The gallbladder is surgically absent. The pancreas and left kidney are normal. There is a right renal cyst, unchanged in the prior CT. No lymphadenopathy is seen. No suspicious lytic or blastic osseous lesions are seen. Postoperative changes of the patient's recent bilateral salpingo-oophorectomy and right colectomy are seen. Degenerative changes of L5-S1 are noted. IMPRESSION: No evidence for gcztjspfivye-pvbkyruh-ipctusby tumor. Requested By: Dictated By: CHEKO DUMONT M.D. on Nov 04 2015 4:15P This document has been electronically signed by: TACOS CALDERA M.D. on 2015 12:22A [id number] us Historical Provider MD ALONZO NM PROCEDURES Final R esult documented in this encounter Visit Diagnoses Diagnosis Other malignant neuroendocrine tumors (HCC) Liver disease Unspecified disorder of liver Soft tissue disorder Disorders of soft tissue, unspecified Acquired absence of other genital organ(s) Acquired absence of both ovaries Acquired absence of other specified parts of digestive tract documented in this encounter
--- OUTSIDE RECORDS SUMMARY | 2024-06-25 22:39 | XMS_ITS | Encounter Summary ---
Author Organization [facility] Facility Care Team Providers Care Package Yarns Drying Machine Operator Name Role Phone Unavailable Primary Care Provider Unavailabl e Encounter Details Date Type Department Care Team (Latest Contact Info) Description 07/08/2015 - 12/09/2015 11:33 PM CDT Hospital Encounter [facility] Other malignant neuroendocrine tumors (HCC) Social History Tobacco Use Types Packs/Day Years Used Date Smoking Tobacco: Never Assessed Comments Unknown Sex and Gender Information Value Date Recorded Sex Assigned at Not on file 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 Gender Identity Not on file Sexual Orientation Straight 02/19/2021 9: 29 AM CDT documented as of this encounter Plan of Treatment Not on file documented as of this encounter Procedures Procedure Name Priority Date/Time Associated Diagnosis Comments DISCHARGE LABORATORY CUMULATIVE REPORT 07/07/2016 BLOOD CELL COUNT Routine 11/04/2015 3:12 PM CDT SERUM IRON PROFILE Routine 11/04/2015 3: 09 PM CDT SERUM FERRITIN Routine 11/04/2015 3:09 PM CDT SERUM CHROMOGRANIN A Routine 11/04/2015 3:09 PM CDT PLASMA COMPREHENSIVE METABOLIC PANEL Routine 11/04/2015 3:09 PM CDT SERUM 25-HYDROXYCHOLECALCIFE ROL (VITAMIN D) Routine 11/04/2015 12:00 PM CDT documented in this encounter Results * DISCHARGE LABORATORY CUMULATIVE REPORT (07/07/2016) Narrative 07/07/2016 Ordered by an unspecified provider. Historical Provider LAB BLOOD ORDERABLES Mel l Result * Blood cell count [CBC] panel, 7 CAM (11/04/2015 3:12 PM CDT) WBC 8.9 3.8 - 9.8 K/cumm HISTORICAL RESULTS RBC 4.37 3.90 - 5.00 M/cumm HISTORICAL RESULTS Hgb 12.2 12.1 - 15.1 g/dl HISTORICAL RESULTS Hct 37.2 36.1 - 44.3 % HISTORICAL RESULTS MCV 85.1 80.0 - 97.6 fl HISTORICAL RESULTS MCH 27.9 26.7 - 33.7 pg HISTORICAL RESULTS MCHC 32.8 32.7 - 35.5 g/dl HISTORICAL RESULTS Rdw 14.3 11.8 - 14.6 % HISTORICAL RESULTS Platelets 178 140 - 440 K/cumm HISTORICAL RESULTS MPV 8.8 6.8 - 10.4 fl HISTORICAL RESULTS Neutrophils 65.4 38.7 - 74.5 % HISTORICAL RESULTS Lymphocytes 25.5 20.0 - 54.3 % HISTORICAL RESULTS Monos 6.5 4.3 - 13.5 % HISTORICAL RESULTS Eosinophils 1.9 0.0 - 6.0 % HISTORICAL RESULTS Basophils 0.7 0.0 - 3.0 % HISTORICAL RESULTS Neutrophils, abs 5.8 1.8 - 6.6 K/cumm HISTORICAL RESULTS Lymphocytes, abs 2.3 1.2 - 3.3 K/cumm HISTORICAL RESULTS Monocytes, absolute 0.6 0.2 - 1.2 K/cumm HISTORICAL RESULTS Eosinophils, abs 0.2 0.0 - 0.5 K/cumm HISTORICAL RESULTS Basophils, abs 0.1 0.0 - 0.2 K/cumm HISTORICAL RESULTS Blood specimen (specimen) 11/04/2015 3:12 PM CDT Eren Cr MD LAB BLOOD ORDERABLES Final Re sult Performing Organization Address [place]/[facility] Co de Phone Number HISTORICAL RESULTS * (ABNORMAL) Serum iron profile (11/04/2015 3:09 PM CDT) Iron 51 35 - 145 mcg/dl HISTORICAL RESULTS UIBC 322 112 - 347 mcg/dl HISTORICAL RESULTS TIBC 373 250 - 400 mcg/dl HISTORICAL RESULTS Transferrin saturation 14(L) 20 - 50 % HISTORICAL RESULTS Serum 11/04/2015 3:09 PM CDT Eren rC MD LAB BLOOD ORDERABLES Final Re sult Performing Organization Address [facility] de Phone Number HISTORICAL RESULTS * (ABNORMAL) Plasma comprehensive metabolic panel (11/04/2015 3:09 PM CDT) Sodium 142 135 - 145 mmol/L HISTORICAL RESULTS K, pl 4.1 3.3 - 4.9 mmol/L HISTORICAL RESULTS Chloride 106 97 - 110 mmol/L HISTORICAL RESULTS CO2 29 22 - 32 mmol/L HISTORICAL RESULTS A. gap 7 2 - 15 mmol/L HISTORICAL RESULTS Glucose 123 70 - 199 mg/dl HISTORICAL RESULTS BUN 14 8 - 25 mg/dl HISTORICAL RESULTS Creatinine 0.77 0.60 - 1.10 mg/dl HISTORICAL RESULTS Calcium 10.8(H) 8.6 - 10.3 mg/dl HISTORICAL RESULTS Protein, pl 6.8 6.5 - 8.5 g/dl HISTORICAL RESULTS Alb 4.2 3.6 - 5.0 g/dl HISTORICAL RESULTS Bilirubin 0.4 0.3 - 1.1 mg/dl HISTORICAL RESULTS Alk phos 98 38 - 126 Units/L HISTORICAL RESULTS AST 22 11 - 47 Units/L HISTORICAL RESULTS ALT 22 7 - 45 Units/L HISTORICAL RESULTS Plasma 11/04/2015 3:09 PM CDT Eren Cr MD LAB BLOOD ORDERABLES Final Re sult Performing Organization Address [facility] de Phone Number HISTORICAL RESULTS * Serum ferritin (11/04/2015 3:09 PM CDT) Ferritin 39 15 - 150 ng/ml HISTORICAL RESULTS Serum 11/04/2015 3:09 PM CDT Eren Cr MD LAB BLOOD ORDERABLES Final Re sult Performing Organization Address [facility] Co de Phone Number HISTORICAL RESULTS * Serum chromogranin A (11/04/2015 3:09 PM CDT) Chromogranin A 71 <93 ng/ml HISTO RICAL RESULTS Comment: ADDITIONAL INFORMATION The testing method is a homogeneous time-resolved immunofluorescent assay. Analyte Specific Reagent: This test was developed and its performance characteristics determined by [facility]. It has not been cleared or approved by the U.S. Food and Drug Administration. ? Values obtained with different assay methods or kits may be different and cannot be used interchangeably. ? Test results cannot be interpreted as absolute evidence for the presence or absence of malignant disease. Test Performed by: [place] [address] Embroidery Machine Operator: Immanuel Novak II, M.D., Ph.D. Serum 11/04/2015 3:09 PM CDT Result [facility] Eren Cr MD LAB BLOOD ORDERABLES Final Re sult Performing Organization Address [facility] de Phone Number HISTORICAL RESULTS * Serum 25-hydroxycholecalciferol (vitamin D) (11/04/2015 12:00 PM CDT) 25-OH Vit D 52 30 - 100 ng/ml HISTORICAL RESULTS Serum 11/04/2015 12:0 0 PM CDT Eren Cr MD LAB BLOOD ORDERABLES Final Re sult Performing Organization Address [facility] Co de Phone Number HISTORICAL RESULTS documented in this encounter Visit Diagnoses Diagnosis Other malignant neuroendocrine tumors (HCC) documented in this encounter
--- OUTSIDE RECORDS SUMMARY | 2024-06-25 22:39 | XMS_ITS | Encounter Summary ---
Author Organization [facility] Healthcare Address [address] [place] [address] Care Team Providers Care Pressure Test Operator Name Role Phone Julio César Briseno MD Primary Care Provider Encounter Details Date Type Department Care Team (Latest Contact Info) Description 01/21/2017 8:51 AM CDT - 01/21/2017 11:59 PM CDT Hospital Encounter [facility] [phone] Discharge Disposition: Discharge to home or self care Social History Tobacco Use Types Packs/Day Years Used Date Smoking Tobacco: Former Comments Unknown Sex and Gender Information Value Date Recorded Sex Assigned at Not on file 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 Gender Identity Not on file Sexual Orientation Straight 02/19/2021 9: 29 AM CDT documented as of this encounter Medications at Time of Discharge ascorbic acid, vitamin C, 500 mg capsuleIndicatio ns:supplement Take 1 tablet by mouth early head start teacher before breakfast 07/04/2016 4 octreotide (SandoSTATIN) 50 mcg/mL (1 mL) syringe every 30 (thirty) days 04/09/2016 2 documented as of this encounter Discharge Disposition Disposition Code Departure Means Destination Discharge to home or self care documented in this encounter Plan of Treatment Not on file documented as of this encounter Visit Diagnoses Not on filedocumented in this encounter Care Teams Pressure Test Operator Relationship Specialty Start Date End Date Julio César Briseno MD PCP - General 10/01/16 documented as of this encounter
--- OUTSIDE RECORDS SUMMARY | 2024-06-25 22:39 | XMS_ITS | Encounter Summary ---
Author Organization [facility] Address [address] [place] [address] Phone Care Team Providers Care Canoe Maker Name Role Phone Julio César Briseno MD Primary Care Provider [phone] Encounter Details Date Type Department Care Team (Late st Contact Info) Description 11/28/2017 Orders Only [facility] Oncology [address] 7[address] [place] [id number] Eren Cr MD [address] [facility] [address] [place] [address] Social History Tobacco Use Types Packs/Day Years Used Date Smoking Tobacco: Former Comments Unknown Sex and Gender Information Value Date Recorded Sex Assigned at Not on file 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
--- OUTSIDE RECORDS SUMMARY | 2024-06-25 22:39 | XMS_ITS | Encounter Summary ---
Author Organization [facility] Healthcare Address [address] [place] [address] Care Team Providers Care Survey Technologist Name Role Phone Julio César Briseno MD Primary Care Provider [phone] Encounter Details Date Type Department Care Team (Latest Contact Info) Description 06/28/2017 11:37 AM RAILCAR BRAKE OPERATOR - 06/28/2017 11:59 PM [facility] Hospital Encounter [facility] OP [facility] [phone] Jasbir Reeves MD [address] [facility] [id number] [place], [place] [id number] Discharge Disposition: Discharge to home or self care Social History Tobacco Use Types Packs/Day Years Used Date Smoking Tobacco: Former Comments Unknown Sex and Gender Information Value Date Recorded Sex Assigned at Not on file 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 Gender Identity Not on file Sexual Orientation Straight 02/19/2021 9: 29 AM CDT documented as of this encounter Medications at Time of Discharge ascorbic acid, vitamin C, 500 mg capsuleIndicatio ns:supplement Take 1 tablet by mouth auction block clerk before breakfast 07/04/2016 4 octreotide (SandoSTATIN) 50 mcg/mL (1 mL) syringe every 30 (thirty) days 04/09/2016 2 documented as of this encounter Discharge Disposition Disposition Code Departure Means Destination Discharge to home or self care documented in this encounter Plan of Treatment Not on file documented as of this encounter Procedures Procedure Name Priority Date/Time Associated Diagnosis Comments CYTOLOGY Routine 06/28/2017 11:37 AM RAILCAR BRAKE OPERATOR CYTOLOGY 06/28/2017 12:00 AM RAILCAR BRAKE OPERATOR documented in this encounter Results * Cytology (06/28/2017 11:37 AM RAILCAR BRAKE OPERATOR) 06/28/2017 11:3 7 AM RAILCAR BRAKE OPERATOR 06/28/2017 5:06 PM RAILCAR BRAKE OPERATOR Narrative 07/11/2017 3:27 PM RAILCAR BRAKE OPERATOR [facility] [place] [address] CYTOPATHOLOGY REPORT FINAL Patient Name: LA CHUNG Address: [address] [place] [address] Service: Laboratory ??[place], [place] ??[id number] Location: [facility] Taken: 06/28/2017 Gender: F Received: 06/28/2017 : 1950 (Age: 66) Hospital #: [id number] Accessioned: 07/02/2017 ?? Patient Type: [facility] Ref Lab Reported: 07/11/2017 ? Physician(s): Jasbir Reeves M.D. ?? FINAL INTERPRETATION SOURCE OF SPECIMEN: ? Liquid based pap test, Thin prep STATEMENT OF ADEQUACY: ?- Satisfactory for evaluation, vaginal smear GENERAL CATEGORY: ?- Negative for squamous intraepithelial lesion or malignancy DESCRIPTION: ?- Atrophy nnt/07/11/2017 15:27 ?JAMES Thomas(ASCP) ??Report Electronically Reviewed and Signed Out By JAMES Thomas(ASCP) 07/11/2017 15:27:35 ?? Gross Description A. ??Liquid based pap test, Thin prep: ?Vaginal - Screening ThinPrep ?? Clinical Diagnosis and History Last Menstrual Period: Not Provided. The patient is a 66 year old woman with routine pap; hysterectomy. This Cytology report is available electronically in Clinical Desktop. The performance characteristics of some immunohistochemical stains, in-situ hybridization and fluorescence in-situ hybridization tests and immunophenotyping by flow cytometry cited in this report (if any) were determined by the Surgical Pathology Department at [facility] as part of an ongoing quality checker program and in compliance with federally mandated [...] determined by the Surgical Pathology Department of [facility]. ??It has not been cleared or approved by the U. S. Food and Drug Administration. Jasbir Reeves MD LAB CYTOLOGY ORDERABLES Final Result * CYTOLOGY (06/28/2017 12:00 AM RAILCAR BRAKE OPERATOR) Narrative 06/28/2017 12:00 AM RAILCAR BRAKE OPERATOR Ordered by an unspecified provider. us Historical Provider LAB CYTOLOGY ORDERABLES F inal Result documented in this encounter Visit Diagnoses Not on filedocumented in this encounter Care Teams Survey Technologist Relationship Specialty Start Date End Date Julio César Briseno MD PCP - General 10/01/16 documented as of this encounter
--- OUTSIDE RECORDS SUMMARY | 2024-06-25 22:39 | XMS_ITS | Encounter Summary ---
Author Organization [facility] Address [address] [place] [address] Phone Care Team Providers Care Commercial Glazier Name Role Phone Julio César Briseno MD Primary Care Provider [phone] Encounter Details Date Type Department Care Team (Late st Contact Info) Description 12/25/2017 Orders Only [facility] Oncology [address] [place] [address] Advanced Medicine 7th [place] [address] [place] [address] Mayela Williamson, [place] Neuroendocrine carcinoma (CMS/HCC) (Primary Dx); 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) Social History Tobacco Use Types Packs/Day Years Used Date Smoking Tobacco: Former Comments Unknown Sex and Gender Information Value Date Recorded Sex Assigned at Not on file 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 Gender Identity Not on file Sexual Orientation Straight 02/19/2021 9: 29 AM CDT documented as of this encounter Plan of Treatment Not on file documented as of this encounter Results * (ABNORMAL) CBC with auto differential (04/21/2018 10:30 AM CDT) WBC 7.1 3.8 - 9.8 K/cumm [facility] Comment:Testing performed by : [facility], [address] [place] [phone] Hgb 14.5 12.1 - 15.1 g/dL CERMINNIE BJ Comment:Testing performed by : [facility], [address] [place] [address] Hct 43.0 36.1 - 44.3 % CERMINNIE BJ Comment:Testing performed by : [facility], [address] [place] [address] Plt 144 140 - 440 K/cumm CERMINNIE BJ Comment:Testing performed by : [facility], [address] [place] [address] MPV 8.1 6.8 - 10.4 fL CERMINNIE BJ Comment:Testing performed by : [place] [address] RBC 5.06(H) 3.90 - 5.00 M/cumm CERMINNIE BLACK Comment:Testing performed by : [place] [address] MCV 85.0 80.0 - 97.6 fL JASON BJ Comment:Testing performed by : [facility], [address] [place] [address] MCH 28.7 26.7 - 33.7 pg [facility]ERMINNIE [facility] Comment:Testing performed by : [place] [address] MCHC 33.7 32.7 - 35.5 g/dL [facility] Comment:Testing performed by : [place] [address] RDW CV 13.5 11.8 - 14.6 % JASON BJ Comment:Testing performed by : [facility], [address] [place] [address] NRBC abs 0.02(H) 0.00 - 0.01 K/cumm [facility] Comment:Testing performed by : [place] [address] Blood specimen (specimen) 04/21/2018 10:30 AM CDT 04/21/2018 10:31 AM CDT Narrative JASON BLACK - 04/21/2018 10:34 AM CDT us Eren Cr MD LAB BLOOD ORDERABLES Final Re sult Performing Organization Address City/[facility]/ZIP Co de Phone Number JASON BLACK [facility] [place] [address] * (ABNORMAL) Chromogranin A (04/21/2018 10:29 AM CDT) Chromogranin A 112(H) <93 ng/mL [facility] Comment: Impaired renal or hepatic [...] developed and its performance characteristics determined by [facility] in a manner consistent with [...] malignant disease. Test Performed by: [facility] - [address] [address] Blood specimen (specimen) 04/21/2018 10:29 AM CDT 04/21/2018 11:04 AM CDT Narrative JASON BLACK - 04/22/2018 2:37 PM CDT Eren Cr MD LAB BLOOD ORDERABLES Final Re sult JASON BLACK [facility] [place] [address] * Comprehensive metabolic panel (04/21/2018 10:29 AM CDT) Sodium 139 135 - 145 mmol/L [facility] Potassium, pl 3.5 3.3 - 4.9 mmol/L [facility] Chloride 103 97 - 110 mmol/L [facility] CO2 27 22 - 32 mmol/L [facility] Anion gap 9 2 - 15 mmol/L [facility] BUN 19 8 - 25 mg/dL [facility] Creatinine 0.89 0.60 - 1.10 mg/dL [facility] Glucose 157 70 - 199 mg/dL [facility] [...] 2017. Calcium 10.1 8.5 - 10.3 mg/dL [facility] Bilirubin, total 0.9 0.1 - 1.2 mg/dL [facility] Protein, pl 6.6 6.5 - 8.5 g/dL [facility] Albumin 4.3 3.5 - 5.0 g/dL [facility] Alk phos 85 40 - 130 Units/L [facility] ALT 20 7 - 45 Units/L [facility] AST 25 10 - 45 Units/L [facility] Blood specimen (specimen) 04/21/2018 10:29 AM CDT 04/21/2018 10:42 AM CDT Narrative [facility] - 04/21/2018 11:17 AM CDT us Eren Cr MD LAB BLOOD ORDERABLES Final Re sult [facility] Department [place] [address] documented in this encounter Visit Diagnoses Diagnosis [...] 04/07 documented in this encounter Care Teams Commercial Glazier Relationship Specialty Start Date End Date Julio César Briseno MD PCP - General 10/01/16 documented as of this encounter
--- OUTSIDE RECORDS SUMMARY | 2024-06-26 01:48 | XMS_ITS | Encounter Summary ---
Author Organization [facility] Address [address] [place] [address] Care Team Providers Care Cloth Mercerizer Operator Name Role Phone Julio César Briseno MD Primary Care Provider [phone] Reason for Visit * Reason Onset Date Comments Rx Medication Monitoring 09/16/2018 Encounter Details Date Type Department Care Team (Late st Contact Info) Description 09/16/2018 Telephone [facility] [address] [place], [place] [id number] Anne-Marie Dobson MD [address] [place] [address] Rx Medication Monitoring Social History [...] from the nurse to report medication usage. Callback#[phone] documented in this encounter Plan of Treatment Not on file documented as of this encounter Visit Diagnoses Not on filedocumented in this encounter Care Teams Cloth Mercerizer Operator Relationship Specialty Start Date End Date Julio César Briseno MD PCP - General 10/23/17 documented as of this encounter
--- OUTSIDE RECORDS SUMMARY | 2024-06-26 01:48 | XMS_ITS | Encounter Summary ---
Author Organization [facility] Address [address] [facility] [place] [address] Care Team Providers Care Healthcare Representative Name Role Phone Julio César Briseno MD Primary Care Provider [phone] Reason for Visit * Reason Onset Date Comments Update 06/05/2018 Encounter Details Date Type Department Care Team (Late st Contact Info) Description 06/05/2018 Telephone [facility] [address] [place] [address] Anne-Marie Dobson MD [address] [place] [address] Update Social History Tobacco Use [...] won't pay- one month = $38.00 at [facility]. IST INFORMATION OFFICER * Telephone Encounter - Anne-Marie Dobson MD - 06/15/2018 2:12 PM CST Pt has mixed so she needs to try different med. From what I can see she has tried toviaz and Vesicare. I sent in sanctura 20 mg 2 x daily. She should let us know in about 3-4 weeks. I would nor repeat coaptite at this time. IST INFORMATION OFFICER * Telephone Encounter - Luciano Stanley RN [...] confirm or if she wants something else. IST INFORMATION OFFICER * Telephone Encounter - Hien Smith - 06/05/2018 9:18 AM CST Pt called in stating that she was supposed to call today to give us an update on her bladder. She would like to speak to the nurse or Dr Dobson. Pt callback# [phone] IST INFORMATION OFFICER documented in this encounter Plan of Treatment Not on file documented as of this encounter Visit Diagnoses Not on filedocumented in this encounter Care Teams Healthcare Representative Relationship Specialty Start Date End Date Julio César Briseno MD PCP - General 10/23/17 documented as of this encounter
--- OUTSIDE RECORDS SUMMARY | 2024-06-26 01:48 | XMS_ITS | Encounter Summary ---
Author Organization [facility] Address [address] [place] [address] Care Team Providers Care Aquatics Assistant Department Head Name Role Phone Julio César Briseno MD Primary Care Provider [phone] Reason for Visit * Reason Onset Date Comments General 02/20/2018 Encounter Details Date Type Department Care Team (Late st Contact Info) Description 02/20/2018 Telephone [facility] [address] [place], [place] [phone] Anne-Marie Dobson MD [address] [place] [address] General Social History Tobacco Use [...] call with needs. * Telephone Encounter - aMgi Mooney - 02/20/2018 11:44 AM CDT Patient stated she was seen by Dr Dobson yesterday 02/19/18. Patient want to let Dr Dobson know she loves her. documented in this encounter Plan of Treatment Not on file documented as of this encounter Visit Diagnoses Not on filedocumented in this encounter Care Teams Aquatics Assistant Department Head Relationship Specialty Start Date End Date Julio César Briseno MD PCP - General 10/23/17 documented as of this encounter
--- OUTSIDE RECORDS SUMMARY | 2024-06-26 01:48 | XMS_ITS | Encounter Summary ---
Author Organization [facility] Address [address] [place] [address] Care Team Providers Care Winding Operator Name Role Phone Julio César Briseno MD Primary Care Provider Reason for Visit * Reason Onset Date Comments Appointment 02/17/2018 Encounter Details Date Type Department Care Team (Late st Contact Info) Description 02/17/2018 Telephone [facility] [address] [place], [place] [phone] Anne-Marie Dobson MD [address] [place] [address] Appointment Social History Tobacco Use [...] on filedocumented in this encounter Care Teams Winding Operator Relationship Specialty Start Date End Date Julio César Briseno MD PCP - General 10/23/17 documented as of this encounter
--- OUTSIDE RECORDS SUMMARY | 2024-06-26 01:48 | XMS_ITS | Clinical Summary ---
Author Organization [facility] Address [address] [place] [address] Care Team Providers Care Physician Extender Name Role Phone Julio César Briseno MD Primary Care Provider [phone] Source Comments [facility] [employer],non-owned Affiliates and Associated Physician Practices is amultiple site organization consisting of ambulatory clinics and hospital sitesin [place], [place], [place] and [place]. This disclosure is being madepursuant to the Care Everywhere program and may not contain all information available regarding this patient. Last updated 18.[facility] Allergies Active Allergy Reactions Criticality Noted Date [...] Comments Blood Pressure 138/80 08/13/2018 11:35 AM SCRUB TECH Pulse - - Temperature - - Respiratory Rate - - Oxygen Saturation - - Inhaled Oxygen Concentration - - Weight 83.9 kg (185 lb) 08/13/2018 11:35 AM SCRUB TECH Height 160 cm (5' 3 ) 08/13/2018 11:35 AM SCRUB TECH Body Mass Index 32.77 08/13/2018 11:35 AM SCRUB TECH Plan of Treatment Health Maintenance Due Date [...] age to complete this topic Care Teams Physician Extender Relationship Specialty Start Date End Date Julio César Briseno MD PCP - General 10/23/17
--- OUTSIDE RECORDS SUMMARY | 2024-06-26 01:48 | XMS_ITS | Encounter Summary ---
Author Organization [facility] Address [address] [place] [address] Care Team Providers Care Tobacco Drier Operator Name Role Phone Julio César Briseno MD Primary Care Provider [phone] Reason for Visit * Reason Onset Date Comments Update 04/02/2018 Encounter Details Date Type Department Care Team (Late st Contact Info) Description 04/02/2018 Telephone [facility] [address] [place] [address] Anne-Marie Dobson MD [address] [place] [address] Update Social History Tobacco Use [...] Dr. Dobson's msg. 05/14 Coapptite appt at [facility], 2nd floor. * Telephone Encounter - Anne-Marie [...] ounces (had an 8 oz soda at [facility] that day) Got up that night void [...] then call with an update. Pt callback# [phone] documented in this encounter Plan of Treatment Not on file documented as of this encounter Visit Diagnoses Not on filedocumented in this encounter Care Teams Tobacco Drier Operator Relationship Specialty Start Date End Date Julio César Briseno MD PCP - General 10/23/17 documented as of this encounter
--- OUTSIDE RECORDS SUMMARY | 2024-06-26 01:48 | XMS_ITS | Encounter Summary ---
Author Organization [facility] Address [address] [facility] [place] [address] Care Team Providers Care Maintenance Trainer Name Role Phone Julio César Briseno MD Primary Care Provider [phone] Reason for Visit * Reason Onset Date Comments Returned Call 09/17/2018 Encounter Details Date Type Department Care Team (Late st Contact Info) Description 09/17/2018 Telephone [facility] [address] [place] [phone] Julio César Briseno MD [address] [place] [phone] Returned Call Social History Tobacco Use [...] would like a call back. Pt callback# [phone] documented in this encounter Plan of Treatment Not on file documented as of this encounter Visit Diagnoses Not on filedocumented in this encounter Care Teams Maintenance Trainer Relationship Specialty Start Date End Date Julio César Briseno MD PCP - General 10/23/17 documented as of this encounter
--- OUTSIDE RECORDS SUMMARY | 2024-06-26 01:48 | XMS_ITS | Encounter Summary ---
Author Organization [facility] Address [address] [facility] [address] Care Team Providers Care Area Director Name Role Phone Julio César Briseno MD Primary Care Provider [phone] Encounter Details Date Type Department Care Team (Late st Contact Info) Description 09/09/2020 Orders Only [facility] - COVID Vaccine [address] [place] [phone] Greyson Arita MD [address] [place] [address] Need for vaccination Social History Tobacco Use [...] disease documented in this encounter Care Teams Area Director Relationship Specialty Start Date End Date Julio César Briseno MD PCP - General 10/23/17 documented as of this encounter
--- OUTSIDE RECORDS SUMMARY | 2024-06-26 01:48 | XMS_ITS | Encounter Summary ---
Author Organization [facility] Address [address] [facility] [place] [address] Care Team Providers Care Excel Analyst Name Role Phone Julio César Briseno MD Primary Care Provider [phone] Reason for Visit * Reason Comments Collagen Implant Encounter Details Date Type Department Care Team (Latest Contact Info) Description 05/14/2018 11:00 AM FABRIC COATING SUPERVISOR Procedure visit [facility] Obstetrics Gynecology and Women's Health [address] [facility] [address] [place] [address] Anne-Marie Dobson MD [address] [place] [address] DIANA (stress urinary incontinence, female) [...] Comments Blood Pressure 134/78 05/14/2018 11:05 AM FABRIC COATING SUPERVISOR Pulse - - Temperature - - Respiratory Rate - - Oxygen Saturation - - Inhaled Oxygen Concentration - - Weight 83.5 kg (184 lb) 05/14/2018 11:05 AM FABRIC COATING SUPERVISOR Height 160 cm (5' 3 ) 05/14/2018 11:05 AM FABRIC COATING SUPERVISOR Body Mass Index 32.59 05/14/2018 11:05 AM FABRIC COATING SUPERVISOR documented in this encounter Patient Instructions * Patient Instructions* Anne-Marie Dobson MD - 05/14/2018 11:36 AM FABRIC COATING SUPERVISOR Vesicare 5 mg daily and let me [...] us day of night,. Day number is [phone] and after hrs is [phone] You should take 1 antibiotic now and one tonight. Call in 1 week to report how it is doing. You should note an improvement straight away. If you need more we usually wait at least a month. IC COATING SUPERVISOR documented in this encounter Progress Notes * Anne-Marie Dobson MD - 05/15/2018 12:25 PM CST Was good for couple days then both DIANA and urge back Change to vesicare 5 mg daily and coaptitie today IC COATING SUPERVISOR documented in this encounter Procedure Notes * Anne-Marie Dobson MD - 05/15/2018 12:24 PM CSTAssociated Order(s): PROC COLLAGEN IMPLANT URETHRAL INJ MATERIAL Procedure(s): MT ENDOSCOPIC INJECTION/IMPLANT Pre-Procedure Diagnose(s): DIANA (stress urinary [...] of material used was 1.7 cc of [id number]. The lot number was [id number]. She tolerated the procedure and was allowed [...] than 1 month apart. Antibiotic prophylaxis given IC COATING SUPERVISOR documented in this encounter Plan of Treatment Not on file documented as of this encounter Procedures Procedure Name Priority Date/Time Associated Diagnosis Comments MT ENDOSCOPIC INJECTION/IMPLANT Routine 05/15/2018 12:25 PM FABRIC COATING SUPERVISOR DIANA (stress urinary incontinence, female) documented in this encounter Results * MT ENDOSCOPIC INJECTION/IMPLANT (05/15/2018 12:25 PM FABRIC COATING SUPERVISOR) Narrative Anne-Marie Dobson MD - 05/15/2018 12:25 PM FABRIC COATING SUPERVISOR Anne-Marie Dobson MD ? 05/15/2018 12:25 PM [...] A 15 degree rigid cystoscopy using the MeshApp injection system was used with a non-coring disposable needle to apply the material. It was placed in 2 points, at 4,6 o'clock. There was good hemostasis. The total amount of material used was 1.7 cc of [id number]. The lot number was [id number]. She tolerated the procedure and was allowed [...] incontinence documented in this encounter Care Teams Excel Analyst Relationship Specialty Start Date End Date Julio César Briseno MD PCP - General 10/23/17 documented as of this encounter
--- OUTSIDE RECORDS SUMMARY | 2024-06-26 01:48 | XMS_ITS | Encounter Summary ---
Author Organization [facility] Address [address] [place] [address] Care Team Providers Care Disaster Or Damage Control Specialist Name Role Phone Julio César Briseno MD Primary Care Provider [phone] Reason for Visit * Reason Onset Date Comments Medication Response 07/09/2018 Encounter Details Date Type Department Care Team (Late st Contact Info) Description 07/09/2018 Telephone [facility] [address] [place], [place] [phone] Anne-Marie Dobson MD [address] [place] [address] Medication Response Social History Tobacco [...] Elaine Rg LPN - 07/10/2018 3:51 PM RESIDENT SERVICES MANAGER I called the patient - informed her of the new medication to try. We will have samples tomorrow forher to meat pickler. She will Will get myrbetriq 25 mg from the [facility] office - one month. She will take them once a day and f/u next month for her coaptite injection. All are in agreement DENT SERVICES MANAGER * Telephone Encounter - Anne-Marie Hadley, [place] - 07/09/2018 4:43 PM RESIDENT SERVICES MANAGER Trospium 20 BID No difference, not able [...] is aware we will check with Dr Dobson and be back in touch DENT SERVICES MANAGER * Telephone Encounter - Juliet Walker - 07/09/2018 2:51 PM CST Pt calling back to report on the Sanctura as instructed by Dr Dobson. Has been taking for about amonth and says it's not working at all for her. Call back # [phone] DENT SERVICES MANAGER documented in this encounter Plan of Treatment Not on file documented as of this encounter Visit Diagnoses Not on filedocumented in this encounter Care Teams Disaster Or Damage Control Specialist Relationship Specialty Start Date End Date Julio César Briseno MD PCP - General 10/23/17 documented as of this encounter
--- OUTSIDE RECORDS SUMMARY | 2024-06-26 01:48 | XMS_ITS | CONTINUITY OF CARE DOCUMENT ---
Author Name corbin, corbin Address Unknown Organization [facility] Address [address] [place] [address] Phone [phone] Care Team Providers Care Electronic Scale Assembler And Tester Name Role Phone Lucio MAS, Ayush Unavailable KATLYN LEON MD Unavailable [phone] KATLYN LEON MD Unavailable PROBLEMS Condition Status Date Provider Notes CHEST PAIN-02/09 NUC NEG active Ayush Valdes MD Hypercholesterolemia active Ayush Valdes MD Anemia active Ayush Valdes MD Neuroendocrine carcinoma s/p resection in 09/20 , follwed at [facility] active Ayush Valdes MD HYPERLIPIDEMIA completed - Ayush Valdes MD HTN-02/16 ECHO LVH AVERY DYS EF 65 active García Valdes MD ENCOUNTERS Date Type Provider Location Encounter Diag nosis 1 - 1 In-person encounter Office Visit Ayush Valdes MD [facility] 1 - 1 In-person encounter Office Visit Ayush Valdes MD [facility] 2 - 2 In-person encounter Office Visit Ayush Valdes MD [facility] 1 - 1 In-person encounter Office Visit Ayush Valdes MD [facility] 3 - 3 In-person encounter Office Visit Ayush Valdes MD [facility] HYPERLIPIDEMIANeuroendocrine carcinoma s/p resection in 09/20 , [facility] 1 In-person encounter Office Visit Ayush Valdes MD [facility] 1 - 1 In-person encounter Office Visit Ayush Valdes MD [facility] HTN-02/16 ECHO LVH AVERY DYS EF 65 6 - 6 In-person encounter Office Visit Ayush Valdes MD [facility] 0 - 0 In-person encounter Office Visit Ayush Valdes MD [facility] 7 - 7 In-person encounter Office Visit Ayush Valdes MD [facility] 1 - 1 In-person encounter Office Visit Ayush Valdes MD [facility] 3 - 3 In-person encounter Office Visit Ayush Valdes MD [facility] HTN-02/16 ECHO LVH AVERY DYS EF 65HYPERLIPIDEMIACHEST PAIN-02/09 NUC NEG VITAL SIGNS Date Observation Value Provider Body Mass Index (Ratio) 31.88 kg/m2 Brown Valdes MD blood pressure, diastolic 70 mm[Hg] [facility], systolic 110 mm[Hg] Briseida colmenares Mousie oxygen saturation, oximetry 97 % [facility] respiratory rate E&M 16 /min [facility] pulse rate 89 /min [facility] weight E&M 180 [lb_av] [facility] height E&M 63 [in_i] [facility] Body Mass Index (Ratio) 32.24 kg/m2 Brown Valdes MD pulse rate 78 /min Tio sharma oxygen saturation, oximetry 98 % Tio Velasquez blood pressure, diastolic 80 mm[Hg] Yo Velasquez blood pressure, systolic 136 mm[Hg] Bette [facility] respiratory rate E&M 16 /min Tio [facility] weight E&M 182 [lb_av] Tio [facility] blood pressure, resting Yes Madisyn arrieta [facility] E&M 63 [in_i] [facility] Body Mass Index (Ratio) 31.53 kg/m2 Brown [...] Marly Ayers blood pressure, diastolic 78 mm[Hg] Nc eliane De La Rosa blood pressure, systolic 147 mm[Hg] Faith pena De La Rosa pulse rate 74 /min Sandhya De La Rosa oxygen saturation, oximetry 97 % Sandhya De La Rosa respiratory rate E&M 15 /min Sandhya De La Rosa Body Mass Index (Ratio) 32.41 kg/m2 [facility] E&M 183 [lb_av] Sandhya De La Rosa blood pressure, diastolic 82 mm[Hg] Nc eliane De La Rosa blood pressure, systolic 146 mm[Hg] Faith pena De La Rosa pulse rate 70 /min Sandhya De La Rosa oxygen saturation, oximetry 96 % Sandhya De La Rosa respiratory rate E&M 14 /min Sandhya De La Rosa Body Mass Index (Ratio) 32.77 kg/m2 [facility] weight E&M 185 [lb_av] Sandhya Estrella Body Mass Index (Ratio) 34.01 kg/m2 [...] RN blood pressure, systolic 134 mm[Hg] Stephon Buckner RN pulse rate 82 /min Stephon Buckner [...] Kwok alanine aminotransferase (SGPT), serum 28 1/L [facility] aspartate aminotransferase (SGOT), serum 28 1/L [facility] creatinine, serum 0.70 mg/dL [facility] potassium, serum 3.8 mmol/L [facility] sodium, serum 144 mmol/L [facility] alanine aminotransferase (SGPT), serum 45 1/L [facility] aspartate aminotransferase (SGOT), serum 33 1/L [facility] blood glucose, random 108 mg/dL [facility] creatinine, serum 0.75 mg/dL [facility] urea nitrogen, blood 17 mg/dL [facility] carbon dioxide, serum, total 29 mmol/L [facility] chloride, serum 104 mmol/L [facility] potassium, serum 4.1 mmol/L [facility] sodium, serum 140 mmol/L [facility] triglyceride, serum, fasting 75 mg/dL [facility] HDL cholesterol, serum 54 mg/dL [facility] LDL cholesterol, serum 52 mg/dL [facility] cholesterol, serum 121 mg/dL [facility] alkaline phosphatase, serum 87 1/L [facility] alanine aminotransferase (SGPT), serum 40 1/L [facility] aspartate aminotransferase (SGOT), serum 22 1/L [facility] triglyceride, serum, fasting 100 mg/dL [facility] HDL cholesterol, serum 65 mg/dL [facility] LDL cholesterol, serum 42 mg/dL [facility] cholesterol, serum 127 mg/dL [facility] creatinine, serum 0.7 mg/dL [facility] urea nitrogen, blood 11 mg/dL [facility] potassium, serum 3.9 mmol/L [facility] sodium, serum 140 mmol/L [facility] cholesterol/HDL ratio, serum 3.9 Anne-Marie Edwin VILLATORO [...] 1 capsule once daily 11/05 - 12/16 [facility] VITAMIN C 500 MG ORAL TABLET completed take 1 tablet once daily 11/05 - 12/16 [facility] TOVIAZ 4 MG ORAL TABLET EXTENDED RELEASE 24 HOUR active take 1 tablet once daily 11/05 Tio Velasquez CYMBALTA 30 MG ORAL CAPSULE DELAYED RELEASE PARTICLES active take once a day 11/06 Marly Ayers HYDROCHLOROTHIAZIDE 12.5 MG ORAL TABLET completed po daily 07/08 - 11/06 Ayush Valdes MD FERROUS SULFATE 325 (65 FE) MG ORAL TABLET completed ONE PER DAY - 12/16 [facility] SANDOSTATIN 50 MCG/ML INJECTION SOLUTION active at [facility] , monthly injection Ayush Valdes MD [...] De La Rosa VITAMIN D2 TABLET active 93465 units daily 11/05 Tio Velasquez ASPIRIN 81 [...] exercise, f requency, days per week yes [facility] alcohol use, average drinks per day social basis only [facility] alcohol use no [facility] caffeine use, averag e drinks per day yes [facility] drug use no [facility] passive cigarette sm glenda exposure no [facility] smoking status Never smoker [facility] number of grandchildren Ayush Valdes MD physical [...] use, averag e drinks per day yes aMrly Ayers drug use no Marly Ayers passive cigarette sm glenda exposure no Marly Ayers smoking status Never smoker Marly Ayers social history reviewed E&M revi ewed - no changes required Snadhya Estrella physical exercise, f requency, days per [...] exercise, f requency, days per week [facility] caffeine use, averag e drinks per day yes [facility] alcohol use, average drinks per day social basis only [facility] smoking status Non-smoker [facility] social history E&M Marital Statu s: L dom with family/friends E thnicity: Stephon Buckner RN social history reviewed E&M reviewed Stephon Buckner RN physical exercise, f requency, days per week yes [facility] caffeine use, averag e drinks per day yes [facility] alcohol use, average drinks per day social basis only [facility] smoking status Non-smoker [facility] MENTAL STATUS Date Observation Value Provider assessment [...] Payer name Policy type / Coverage type [place] red republican ID AARP Rise insurance [place] [id number] [place] MED[place] Medicare [id number] ADVANCE DIRECTIVES Name Date DISCUSSED - NO [...] Cardiology Follow up Ayush fairbanks MD Cardiology Ayush Valdes MD Cardiology Ayush [...] (06/15/2009) LDL: 52 (06/15/2009) T (06/15/2009) Ayush Valeds MD routine : H er updated medication [...] Cl: 104 (06/15/2009) O rders: E KG ([id number]) Ayush Valdes MD routine: H er updated [...] or pleural effusion. (06/13/2010) Orders: E KG ([id number]) Ayush Valdes MD routine : B P [...] N o evidence of pulmonic valve regurgitation [facility] (10/25/2008) Orders: Angelique KG ([id number]) Ayush Valdes MD office visit: H er [...] tatus EKG Ayush Valdes MD completed SNOMED-CT: 22397782 Physical Exam, Performed: Pulse Exam of Foot Ayush Valdes MD completed SNOMED-CT: 248374910 626627 Current Medications Documented Ayush Valdes MD completed SNOMED-CT: 95870877 Physical Exam, Performed: Pulse Exam of Foot Ayush Valdes MD completed SNOMED-CT: 295276842 225539 Current Medications Documented Ayush Valdes MD completed SNOMED-CT: 59870976 Physical Exam, Performed: Pulse Exam of Foot Ayush Valdes MD completed EKG Ayush Valdes MD completed SNOMED-CT: 245840987 352202 Current Medications Documented Ayush Valdes MD completed EKG Ayush Valdes MD completed EKG Ayush Valdes MD completed EKG Ayush Valdes MD completed JORDANA Valdes MD completed JORDANA Valdes MD completed
--- OUTSIDE RECORDS SUMMARY | 2024-06-26 01:48 | XMS_ITS | Encounter Summary ---
Author Organization [facility] Address [address] [place] [address] Care Team Providers Care Director Food And Beverage Name Role Phone Julio César Briseno MD Primary Care Provider [phone] Reason for Visit * Reason Comments Urodynamics Encounter Details Date Type Department Care Team (Latest Contact Info) Description 02/19/2018 9:45 AM CDT Procedure visit [facility] [address] [place] [address] Anne-Marie Dobson MD [address] [place] [address] Mixed incontinence ; DEVEN (stress [...] us day of night,. Day number is [phone] and after hrs is [phone] You should take 1 antibiotic now and one tonight. Call in 1 week to report how it is doing. You should note an improvement straight away. If you need more we usually wait at least a month. documented in this encounter Procedure Notes * Anne-Marie Dobson MD - 02/22/2018 7:35 PM CDTAssociated Order(s): PROC COLLAGEN IMPLANT URETHRAL INJ MATERIAL Procedure(s): MN ENDOSCOPIC INJECTION/IMPLANT; MN SYNTHETIC IMPLNT URINARY 1ML Pre-Procedure Diagnose(s): DEVEN [...] of material used was 1.7 cc of COAPTITE:[id number]. The lot number was [id number]. She tolerated the procedure and was allowed [...] 7:25 PM CDTAssociated Order(s): PROC URODYNAMICS Procedure(s): MN COMPLEX CYSTOMETROGRAM; MN URINE FLOW MEASUREMENT Pre-Procedure Diagnose(s): Mixed incontinence [...] VLPP at 150 cc: 65 VLPP at [facility] : Urethral pressure profilometry (UPP): Maximal urethral closure pressure (MUCP): nd Leakage amount: large and at [facility] Voiding study (VS): Volume voided: 226 Maximal [...] Name Priority Date/Time Associated Diagnosis Comments MN ENDOSCOPIC INJECTION/IMPLANT Routine 02/22/2018 7:36 PM CDT DEVEN (stress urinary incontinence, female) MN SYNTHETIC IMPLNT URINARY 1ML Routine 02/22/2018 7:36 PM CDT DEVEN (stress urinary incontinence, female) MN COMPLEX CYSTOMETROGRAM Routine 02/22/2018 7:34 PM CDT Mixed incontinence MN URINE FLOW MEASUREMENT Routine 02/22/2018 7:34 PM CDT Mixed incontinence documented in this encounter Results * MN SYNTHETIC IMPLNT URINARY 1ML, MN ENDOSCOPIC INJECTION/IMPLANT (02/22/2018 7:36 PM CDT) Narrative [...] A 15 degree rigid cystoscopy using the [place] injection system was used with a non-coring disposable needle to apply the material. It was placed in 2 points, at 4,6 o'clock. There was good hemostasis. The total amount of material used was 1.7 cc of [id number]. The lot number was [id number]. She tolerated the procedure and was allowed [...] Dobson MD PROCEDURE/MINOR SURG ICAL ORDERABLES * MN URINE FLOW MEASUREMENT, MN COMPLEX CYSTOMETROGRAM (02/22/2018 7:34 PM CDT) Narrative [...] VLPP at 150 cc: 65 VLPP at [facility] : ?? Urethral pressure profilometry (UPP): Maximal urethral closure pressure (MUCP): nd Leakage amount: large and at [facility] Voiding study (VS): Volume voided: 226 Maximal [...] incontinence documented in this encounter Care Teams Director Food And Beverage Relationship Specialty Start Date End Date Julio César Briseno MD PCP - General 10/23/17 documented as of this encounter
--- OUTSIDE RECORDS SUMMARY | 2024-06-26 01:48 | XMS_ITS | Encounter Summary ---
Author Organization [facility] Address [address] [place] [address] Care Team Providers Care Concrete Inspector Name Role Phone Julio César Briseno MD Primary Care Provider Reason for Visit * Reason Onset Date Comments Refill Request 11/28/2017 Appointment 11/28/2017 Encounter Details Date Type Department Care Team (Late st Contact Info) Description 11/28/2017 Telephone [facility] [address] [place], [place] [id number] Anne-Marie Dobson MD [address] [place] [address] Refill Request; Appointment Social History [...] got a call yet. Pharmacy info.: [facility] [phone] documented in this encounter Plan of Treatment Not on file documented as of this encounter Visit Diagnoses Not on filedocumented in this encounter Care Teams Concrete Inspector Relationship Specialty Start Date End Date Julio César Briseno MD PCP - General 10/23/17 documented as of this encounter
--- OUTSIDE RECORDS SUMMARY | 2024-06-26 01:48 | XMS_ITS | Encounter Summary ---
Author Organization [facility] Address [address] [facility] [place] [address] Care Team Providers Care Dry Kiln Burner Name Role Phone Julio César Briseno MD Primary Care Provider [phone] Reason for Visit * Reason Onset Date Comments Update 10/16/2018 Encounter Details Date Type Department Care Team (Late st Contact Info) Description 10/16/2018 Telephone [facility] [address] [place] [address] Anne-Marie Dobson MD [address] [place] [address] Update Social History Tobacco Use [...] She increased her to 50mg. Pt callback# [phone] documented in this encounter Plan of Treatment Not on file documented as of this encounter Visit Diagnoses Diagnosis Mixed incontinence Mixed incontinence urge and stress (male)(female) documented in this encounter Care Teams Dry Kiln Burner Relationship Specialty Start Date End Date Julio César Briseno MD PCP - General 10/23/17 documented as of this encounter
--- OUTSIDE RECORDS SUMMARY | 2024-06-26 01:48 | XMS_ITS | Encounter Summary ---
Author Organization [facility] Address [address] [facility] [place] [place] [address] Care Team Providers Care Business Applications Specialist Name Role Phone Julio César Briseno MD Primary Care Provider [phone] Reason for Visit * Reason Comments Follow-up FBSC- scattered spot s, spots on neck, left and right leg, back, face Encounter Details Date Type Department Care Team (Late st Contact Info) Description 07/09/2018 10:40 AM POSTAL SERVICE SECTIONAL CENTER MANAGER Office Visit [facility] [address] [place] [address] Jessica Nazario MD [address] [place] [address] Porokeratosis (Primary Dx); Bagley angioma; Family history [...] Ck Claros MD - 07/09/2018 10:54 AM POSTAL SERVICE SECTIONAL CENTER MANAGER It was a pleasure seeing you in [...] is the one that you will wear! AL SERVICE SECTIONAL CENTER MANAGER documented in this encounter Progress Notes * Jessica Nazario MD - 07/09/2018 10:42 AM CST I have seen and examined the patient with the resident and I agree with the findings and plan of care as documented by the resident. Date of Service: 07/09/2018 Jessica Nazario MD, PhD AL SERVICE SECTIONAL CENTER MANAGER * Ck Claros MD - 07/09/2018 10:19 AM CST Chief Complaint Patient presents with ??? Follow-up FBSC- scattered spots, spots on neck, left and right leg, back, face HPI: La Chung a 67 y.o. female presents for skin exam. Last FBSE: 07/05/2017 Concerns: 1. [place] rough spots on sun exposed areas. Ongoing [...] with central pore 3. 2 on R gnosticist, 1 on R upper eyelid, 2 on [...] thigh; Actinic keratosis - 2 on R gnosticist, 1 on R upper eyelid, 2 on [...] MD PGY-3 Dermatology Resident 07/09/2018 10:53 AM AL SERVICE SECTIONAL CENTER MANAGER documented in this encounter Procedure Notes * Ck Claros MD - 07/09/2018 11:00 AM CSTAssociated Order(s): PROC DESTRUCTION OF PRE-MALIGNANT LESIONS Procedure(s): UT DESTROY PREMALIG LESION, 1ST LESION; UT DESTROY PREMALIG LESION, 2-14 Pre-Procedure Diagnose(s): Actinic keratosis; Porokeratosis Diagnosis and treatment options discussed, addressing the benefit and risks of each. Pt wish to proceed with cryotherapy. Liquid Nitrogen was applied to 6 lesions (1 porokeratosis on R latera thigh, 6 AKs: 2 on R gnosticist, 1 on R upper eyelid, 2 on nasal bridge) for 5-7s each x 1 cycle. Wound care reviewed. AL SERVICE SECTIONAL CENTER MANAGER Associated attestation - Jessica Nazario MD - 07/09/2018 11:04 AM POSTAL SERVICE SECTIONAL CENTER MANAGER A procedure was performed. I was present for the entire procedure. See procedure note. Jessica Nazario MD, PhD documented in this encounter Plan of Treatment Not on file documented as of this encounter Procedures Procedure Name Priority Date/Time Associated Diagnosis Comments UT DESTROY PREMALIG LESION, 1ST LESION Routine 07/09/2018 11:04 AM POSTAL SERVICE SECTIONAL CENTER MANAGER Actinic keratosis Porokeratosis UT DESTROY PREMALIG LESION, 2-14 Routine 07/09/2018 11:04 AM POSTAL SERVICE SECTIONAL CENTER MANAGER Actinic keratosis Porokeratosis documented in this encounter Results * UT DESTROY PREMALIG LESION, 2-14, UT DESTROY PREMALIG LESION, 1ST LESION (07/09/2018 11:04 AM POSTAL SERVICE SECTIONAL CENTER MANAGER) Narrative Jessica Nazario MD - 07/09/2018 11:04 AM POSTAL SERVICE SECTIONAL CENTER MANAGER Ck Claros MD ? 07/09/2018 11:01 AM Diagnosis and treatment options discussed, addressing the benefit and risks of each. Pt wish to proceed with cryotherapy. Liquid Nitrogen was applied to 6 lesions (1 porokeratosis on R latera thigh, 6 AKs: 2 on R gnosticist, 1 on R upper eyelid, 2 on [...] keratoses documented in this encounter Care Teams Business Applications Specialist Relationship Specialty Start Date End Date Julio César Briseno MD PCP - General 10/23/17 documented as of this encounter
--- OUTSIDE RECORDS SUMMARY | 2024-06-26 01:48 | XMS_ITS | Encounter Summary ---
Author Organization [facility] Address [address] [facility] [place] [address] Care Team Providers Care Ux Developer Designer Name Role Phone Julio César Briseno MD Primary Care Provider [phone] Reason for Visit * Reason Comments Prolapse Encounter Details Date Type Department Care Team (Late st Contact Info) Description 10/23/2017 10:00 AM CDT Office Visit [facility] Gynecology [facility] Women[facility] [address] [place], [place] [id number] Anne-Marie Dobson MD [address] [place] [address] Mixed incontinence (Primary Dx) Social [...] you are an established patient of the [facility], one of the doctors will [...] progress. It is basically like having a retail personal banker for the vagina. For people who have [...] (male)(female) documented in this encounter Care Teams Ux Developer Designer Relationship Specialty Start Date End Date Julio César Briseno MD PCP - General 10/23/17 documented as of this encounter
--- OUTSIDE RECORDS SUMMARY | 2024-06-26 01:48 | XMS_ITS | Encounter Summary ---
Author Organization [facility] Address [address] [facility] [place] [address] Care Team Providers Care Microfilmer Name Role Phone Julio César Briseno MD Primary Care Provider [phone] Reason for Visit * Reason Onset Date Comments Question 03/04/2018 Encounter Details Date Type Department Care Team (Late st Contact Info) Description 03/04/2018 Telephone [facility] [address] [place] [address] Anne-Marie Dobson MD [address] [place] [address] Question Social History Tobacco Use [...] nurse regarding her coaptite procedure. Pt callback# [phone] documented in this encounter Plan of Treatment Not on file documented as of this encounter Visit Diagnoses Not on filedocumented in this encounter Care Teams Microfilmer Relationship Specialty Start Date End Date Julio César Briseno MD PCP - General 10/23/17 documented as of this encounter
--- OUTSIDE RECORDS SUMMARY | 2024-06-26 01:48 | XMS_ITS | Referral Summary ---
Author Organization [facility] Address [address] [facility] [facility] [place] [address] Care Team Providers Care Dairy Farm Manager Name Role Phone Julio César Briseno MD Primary Care Provider Source Comments [facility],non-owned Affiliates and Associated Physician Practices is amultiple site organization consisting of ambulatory clinics and hospital sitesin [place], [place], [place] and [place]. This disclosure is being madepursuant to the Care Everywhere program and may not contain all information available regarding this patient. Last updated 18.[employer] Allergies Active Allergy Reactions Criticality Noted Date [...] Comments Blood Pressure 138/80 08/13/2018 11:35 AM DIRECTOR OF HEALTHCARE SYSTEMS Pulse - - Temperature - - Respiratory Rate - - Oxygen Saturation - - Inhaled Oxygen Concentration - - Weight 83.9 kg (185 lb) 08/13/2018 11:35 AM DIRECTOR OF HEALTHCARE SYSTEMS Height 160 cm (5' 3 ) 08/13/2018 11:35 AM DIRECTOR OF HEALTHCARE SYSTEMS Body Mass Index 32.77 08/13/2018 11:35 AM DIRECTOR OF HEALTHCARE SYSTEMS Plan of Treatment Not on file Care Teams Dairy Farm Manager Relationship Specialty Start Date End Date Julio César Briseno MD PCP - General 10/23/17
--- OUTSIDE RECORDS SUMMARY | 2024-06-26 01:48 | XMS_ITS | Encounter Summary ---
Author Organization [facility] Address [address] [place] [address] Care Team Providers Care Wireless Sales Expert Name Role Phone Julio César Briseno MD Primary Care Provider [phone] Reason for Visit * Reason Onset Date Comments Update 09/02/2018 Encounter Details Date Type Department Care Team (Late st Contact Info) Description 09/02/2018 Telephone [facility] [address] [place] [address] Anne-Marie Dobson MD [address] [place] [address] Update Social History Tobacco Use [...] to Dr. Dobson for all her help. TRICAL ELECTRONICS TECHNICIAN * Telephone Encounter - Anne-Marie Dobson MD [...] at night and we could use DDAVP> TRICAL ELECTRONICS TECHNICIAN * Telephone Encounter - Luciano Stanley RN [...] the new Myrbetriq script. New rx sent. TRICAL ELECTRONICS TECHNICIAN * Telephone Encounter - Hien Smith - [...] out of town on Saturday. Pt callback# [phone] TRICAL ELECTRONICS TECHNICIAN documented in this encounter Plan of Treatment Not on file documented as of this encounter Visit Diagnoses Diagnosis Mixed incontinence- Primary Mixed incontinence urge and stress (male)(female) Dysuria documented in this encounter Care Teams Wireless Sales Expert Relationship Specialty Start Date End Date Julio César Briseno MD PCP - General 10/23/17 documented as of this encounter
--- OUTSIDE RECORDS SUMMARY | 2024-06-26 01:48 | XMS_ITS | Encounter Summary ---
Author Organization [facility] Address [address] [place] [address] Care Team Providers Care Swing Frame Grinder Operator Name Role Phone Julio César Briseno MD Primary Care Provider [phone] Encounter Details Date Type Department Care Team (Late st Contact Info) Description 06/15/2018 Orders Only [facility] [address] [place] [address] Anne-Marie Dobson MD [address] [place] [id number] Social History Tobacco Use Types Packs/Day Years [...] on filedocumented in this encounter Care Teams Swing Frame Grinder Operator Relationship Specialty Start Date End Date Julio César Briseno MD PCP - General 10/23/17 documented as of this encounter
--- OUTSIDE RECORDS SUMMARY | 2024-06-26 01:48 | XMS_ITS | Patient Health Summary ---
Author Organization [facility] Address [address] [facility] [place] [address] Care Team Providers Care Regional Account Executive Name Role Phone Julio César Briseno MD Primary Care Provider [phone] Note from [facility],non-owned Affiliates and Associated Physician Practices is amultiple site organization consisting of ambulatory clinics and hospital sitesin [place], [place], [place] and [place]. This disclosure is being madepursuant to the Care Everywhere program and may not contain all information available regarding this patient. Last updated 18.[facility] Allergies * Ramipril(Other) -Low Criticality * Vytorin(Other) [...] Comments Blood Pressure 138/80 08/13/2018 11:35 AM MODELING AGENCY MANAGER Pulse - - Temperature - - Respiratory Rate - - Oxygen Saturation - - Inhaled Oxygen Concentration - - Weight 83.9 kg (185 lb) 08/13/2018 11:35 AM MODELING AGENCY MANAGER Height 160 cm (5' 3 ) 08/13/2018 11:35 AM MODELING AGENCY MANAGER Body Mass Index 32.77 08/13/2018 11:35 AM MODELING AGENCY MANAGER Procedures * ND DESTROY PREMALIG LESION, 1ST LESION(Performed 07/09/2018) Performed for Actinic keratosis, Porokeratosis * ND DESTROY PREMALIG LESION, 2-14(Performed 07/09/2018) Performed for Actinic keratosis, Porokeratosis * ND ENDOSCOPIC INJECTION/IMPLANT(Performed 05/15/2018) Performed for DEVEN (stress urinary incontinence, female) * ND ENDOSCOPIC INJECTION/IMPLANT(Performed 02/22/2018) Performed for DEVEN (stress urinary incontinence, female) * ND SYNTHETIC IMPLNT URINARY 1ML(Performed 02/22/2018) Performed for DEVEN (stress urinary incontinence, female) * ND COMPLEX CYSTOMETROGRAM(Performed 02/22/2018) Performed for Mixed incontinence * ND URINE FLOW MEASUREMENT(Performed 02/22/2018) Performed for Mixed incontinence * DERMATOPATHOLOGY(Performed 09/11/2017) * PATHOLOGY/GENETICS HISTORICAL-ONBASE(Performed 09/11/2017) * DERMATOPATHOLOGY(Performed 12/12/2016) * DERMATOPATHOLOGY(Performed 07/04/2016) * PATHOLOGY/GENETICS HISTORICAL-ONBASE(Performed 07/04/2016) Results * ND DESTROY PREMALIG LESION, 2-14, ND DESTROY PREMALIG LESION, 1ST LESION (07/09/2018 11:04 AM MODELING AGENCY MANAGER) Narrative Jessica Nazario MD - 07/09/2018 11:04 AM MODELING AGENCY MANAGER Ck Claros MD ? 07/09/2018 11:01 AM Diagnosis and treatment options discussed, addressing the benefit and risks of each. Pt wish to proceed with cryotherapy. Liquid Nitrogen was applied to 6 lesions (1 porokeratosis on R latera thigh, 6 AKs: 2 on R mu-ism, 1 on R upper eyelid, 2 on nasal bridge) for 5-7s each x 1 cycle. Wound care reviewed. ?? Jessica Nazario MD PROCEDURE/MINOR SOLIZ RGICAL ORDERABLES * ND ENDOSCOPIC INJECTION/IMPLANT (05/15/2018 12:25 PM MODELING AGENCY MANAGER) Narrative Anne-Marie Dobson MD - 05/15/2018 12:25 PM MODELING AGENCY MANAGER Anne-Marie Dobson MD ? 05/15/2018 12:25 [...] of material used was 1.7 cc of COAPTITE:[id number]. The lot number was [id number]. She tolerated the procedure and was allowed [...] Dobson MD PROCEDURE/MINOR SURG ICAL ORDERABLES * ND SYNTHETIC IMPLNT URINARY 1ML, ND ENDOSCOPIC INJECTION/IMPLANT (02/22/2018 7:36 PM CDT) Narrative [...] A 15 degree rigid cystoscopy using the Mobile[employer] injection system was used with a non-coring disposable needle to apply the material. It was placed in 2 points, at 4,6 o'clock. There was good hemostasis. The total amount of material used was 1.7 cc of COAPTITE:73769. The lot number was [id number]. She tolerated the procedure and was allowed [...] Dobson MD PROCEDURE/MINOR SURG ICAL ORDERABLES * ND URINE FLOW MEASUREMENT, ND COMPLEX CYSTOMETROGRAM (02/22/2018 7:34 PM CDT) Narrative [...] VLPP at 150 cc: 65 VLPP at [facility] : ?? Urethral pressure profilometry (UPP): Maximal urethral closure pressure (MUCP): nd Leakage amount: large and at [facility] Voiding study (VS): Volume voided: 226 Maximal [...] Historical Provider LAB - CHEMISTRY O RDERABLES [address] * PATHOLOGY TISSUE FOR DERMATOLOGY (09/11/2017 12:00 AM MODELING AGENCY MANAGER) Only the most recent of3 resultswithin the time period is included. Result CASE: [id number] PATIENT: LA CHUNG PATHOLOGIC DIAGNOSIS: Right base of neck: EPIDERMOID CYST CLINICAL DATA: Cyst-e. GROSS DESCRIPTION: Received is one formalin filled container labeled with the patients name and designated right base of neck. The specimen consists of a [id number] excision. The specimen is bisected lengthwise and submitted in 1 cassette. Jar 0. MICROSCOPIC DESCRIPTION: Within the dermis, there is a space lined by epithelium that resembles normal epidermis and the infundibular portion of the hair follicle. Electronically signed out by Neema Saini M.D., PhD. 09/13/2017 12:06:20PM DERMATOPATHOLOGY LABORATORY Comment: Performed at: Dermatopathology Laboratory [facility] - Department of Dermatology [address] [place] [address] Phone number: [phone] FAX: [phone] Skin (tissue) specimen (specimen) 09/11/2017 09/12/[address] [facility] DERMATOPATHOLOGY LABORATORY - 09/13/2017 12:06 PM MODELING AGENCY MANAGER How many specimens?->1 Specimen A: Type->Excision ?Site->right base of neck History->cyst, previously inflamed ?Impression->cyst-e ?Check Margins:->No ?Prior Biopsy->No Jessica Nazario MD LAB - PATHOLOGY/CY TOLOGY ORDERABLES DERMATOPATHOLOGY LABORATORY [facility] - Department of Dermatology [address] [place] [address] Floor Lab [address] [phone] Care Teams Regional Account Executive Relationship Specialty Start Date End Date Julio César Briseno MD PCP - General 10/23/17
--- OUTSIDE RECORDS SUMMARY | 2024-06-26 01:48 | XMS_ITS | Encounter Summary ---
Author Organization [facility] Address [address] [facility] [place] [address] Care Team Providers Care District Leader Name Role Phone Julio César Briseno MD Primary Care Provider [phone] Encounter Details Date Type Department Care Team (Latest Contact Info) Description 08/13/2018 11:30 AM SONAR TECHNICIAN Procedure visit [facility] Obstetrics Gynecology and Women's Health [address] [place] [address] Anne-Marie Dobson MD [address] [place] [address] Mixed incontinence Social History Tobacco [...] Comments Blood Pressure 138/80 08/13/2018 11:35 AM SONAR TECHNICIAN Pulse - - Temperature - - Respiratory Rate - - Oxygen Saturation - - Inhaled Oxygen Concentration - - Weight 83.9 kg (185 lb) 08/13/2018 11:35 AM SONAR TECHNICIAN Height 160 cm (5' 3 ) 08/13/2018 11:35 AM SONAR TECHNICIAN Body Mass Index 32.77 08/13/2018 11:35 AM SONAR TECHNICIAN documented in this encounter Patient Instructions * Patient Instructions* Anne-Marie Dobson MD - 08/13/2018 12:13 PM SONAR TECHNICIAN Botox. I explained the procedure of injecting [...] however this is an easily treatable complication. [email or web address] - for Interstim or sacral nerve implant. R TECHNICIAN documented in this encounter Progress Notes [...] to her satisfaction. Written instructions were provided. R TECHNICIAN documented in this encounter Plan of Treatment Not on file documented as of this encounter Visit Diagnoses Diagnosis Mixed incontinence- Primary Mixed incontinence urge and stress (male)(female) documented in this encounter Care Teams District Leader Relationship Specialty Start Date End Date Julio César Briseno MD PCP - General 10/23/17 documented as of this encounter
--- OUTSIDE RECORDS SUMMARY | 2024-06-26 01:48 | XMS_ITS | Encounter Summary ---
Author Organization [facility] Address [address] [place] [address] Care Team Providers Care Tapper Supervisor Name Role Phone Julio César Briseno MD Primary Care Provider [phone] Reason for Visit * Reason Onset Date Comments Update 05/27/2018 Encounter Details Date Type Department Care Team (Late st Contact Info) Description 05/27/2018 Telephone [facility] Women[facility] [address] [place] [address] Anne-Marie Dobson MD [address] [place] [address] Update Social History Tobacco Use [...] dribbling seems minor and I would wait. TS SPECIALIST * Telephone Encounter - Luciano Stanley RN [...] Dobson know how she is so far. TS SPECIALIST * Telephone Encounter - Juliet Walker - 05/27/2018 10:26 AM CST Pt is calling back re how she's doing after the coaptite. Is having some success but is leaking at certain times yet. Call back # [phone] TS SPECIALIST documented in this encounter Plan of Treatment Not on file documented as of this encounter Visit Diagnoses Not on filedocumented in this encounter Care Teams Tapper Supervisor Relationship Specialty Start Date End Date Julio César Briseno MD PCP - General 10/23/17 documented as of this encounter
--- OUTSIDE RECORDS SUMMARY | 2024-06-26 01:50 | XMS_ITS | Clinical Summary ---
Author Organization [facility] Address [address] [place] [address] Care Team Providers Care Living Skills Advisor Name Role Phone Julio César Briseno MD Primary Care Provider [phone] Eren Lund MD Unavailable [phone] Yohana Bowen MD Unavailable Alejo Mi MD Unavailable [phone] Allergies Active Allergy Reactions Criticality Noted Date Comments Ezetimibe-Simvastatin Muscle pain,Other (See comments),Unknown Medium 01/11/2012 Muscle weakness Morphine Blisters,Rash High 11/20/2020 Ramipril Cough Low 12/30/2017 Medications simvastatin (ZOCOR) 20 mg tablet Take 1 tablet (20 mg total) by mouth nightly Active ostomy supplies [facility] Patient has colostomy and needs Cavilon 3M [...] 1 tablet (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) by mouth powder shoveler before breakfast 90 tablet 3 11/28/19 24 [...] ions:supplemen t Take 1 tablet by mouth powder shoveler before breakfast 07/04/20 16 Discontinued(S top Taking at Discharge) coenzyme [id number] E 100-5 mg-unit capsuleIndicat ions:supplemen t Take 1 tablet by mouth powder shoveler before breakfast Discontinued(S top Taking at Discharge) [...] Taking at Discharge) 0.9 % sodium chloride ([facility] sodium chloride 0.9%) injectionIndic ations:line care Infuse [...] (ATROVENT) 42 mcg (0.06 %) nasal spray [place] 1 spray twice a day by nasal route for 13 days. 04/28/20 24 Discontinued Active Problems Problem Noted Date Diagnosed Date Exertional dyspnea 06/17/2024 Assessment & Plan (06/18/2024 10:44 AM DIRECTOR VIDEO): Reports noting increased exertional dyspnea over last year or so. Nt-probnp elevated on admission - TTE with grade 1 diastolic dysfunction, thickened LV but otherwise normal systolic function EF 66% and normal valvular function ANNE-MARIE (acute kidney injury) (H CC) and Mild right hydroureteronephrosis 06/14/2024 Assessment & Plan (06/20/2024 11:38 PM DIRECTOR VIDEO): Cr b/l is 1.3-1.5. It is 2 [...] 06/14/2024 Assessment & Plan (06/17/2024 3:29 PM DIRECTOR VIDEO): Likely related to ANNE-MARIE and R ureteral process. -Improved and tolerating oral intake -PPI IV BID->oral BID for now. -Nausea control. Pain control. HTN (hypertension) 06/14/2024 Assessment & Plan (06/20/2024 11:37 PM DIRECTOR VIDEO): Home amlodipine. Losartan held throughout admission due to ANNE-MARIE and blood pressure reasonably controlled on amlodipine. Can consider restarting outpatient if uptrend noted Anxiety 06/14/2024 Assessment & Plan (06/14/2024 3:48 PM DIRECTOR VIDEO): She reports taking duloxetine 30 daily for over a year. 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 Received denosumab 03/30 120mg SQ. Ca on presentation to [facility] 8.2; following surgical procedure, Ca acutely [...] 03/30 120mg SQ. Ca on presentation to [facility] 8.2; following surgical procedure, Ca acutely [...] 03/30 120mg SQ. Ca on presentation to [facility] 8.2; following surgical procedure, Ca acutely [...] 03/30 120mg SQ. Ca on presentation to [facility] 8.2; following surgical procedure, Ca acutely [...] 10/03/2015 Assessment & Plan (06/19/2024 9:47 PM DIRECTOR VIDEO): Of the ileum, w/ mets to the [...] Type Department Care Team Description 06/23/2024 Telephone [facility] Radiology [address] [place] [address] Dorota Rogers, [place] 06/23/2024 Orders Only [facility] Nephrology [address] [facility] 5th [place] [address] [place] [phone] Alejo Mi MD Stage 3b chronic kidney disease (HCC) (Primary Dx); Hypomagnesemia; Benign essential hypertension; Acute cystitis with hematuria; Anemia, unspecified type; Elevated PTHrP level 06/22/2024 Orders Only [facility] Oncology [address] [place] [phone] Eren Lund MD Neuroendocrine carcinoma (HCC) (Primary Dx); Malignant neoplasm metastatic to liver (HCC) 06/22/2024 Telephone [facility] Oncology [address] [place] [phone] Eren Lund MD exchange call/ER follow up 06/22/2024 Telephone [facility] Radiology 1 [place] [address] Dorota Rogers, [place] 06/21/2024 Telephone [facility] Oncology [address] [place] [phone] Shaniqua Lawernce RN 06/17/2024 Orders Only [facility] Oncology [address] [facility] Floor 5 [place] [phone] Claude Browning MD 06/17/2024 Orders Only [facility] Radiology 1 [place] [address] Dorota Rogers RN 06/16/2024 3:00 PM DIRECTOR VIDEO Anesthesia Event [facility] Operating Room 1 [place] [address] Elissa Rosales MD Jaffer, Danish, MD 06/16/2024 2:37 PM DIRECTOR VIDEO - 06/16/2024 3:52 PM DIRECTOR VIDEO Surgery [facility] Operating Room 1 [place] [address] Mela Dejesus MD CYSTOSCOPY 06/16/2024 Telephone [facility] Radiology 1 [place] [address] Juice Garcia RN 06/13/2024 10:27 PM DIRECTOR VIDEO - 06/20/2024 1:30 PM DIRECTOR VIDEO Hospital Encounter [address] [address] Stu Huang MD Tan, Benjamin R., MD Ma, MD Juan Huffman Amrat, MD Pirzada, Dana Henry MD ANNE-MARIE (acute kidney injury) (HCC) (Primary Dx); 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; History of malignant neuroendocrine tumor; 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) Discharge Disposition: Discharge to home or self care 06/13/2024 4:24 PM DIRECTOR VIDEO - 06/13/2024 11:59 PM DIRECTOR VIDEO Hospital Encounter [facility] ([facility]) [address] [place] [phone] Dehydration (Primary Dx); Nausea; Hypertension, unspecified type Discharge Disposition: Discharge to home or self care 06/13/2024 Telephone [facility] Bone Marrow Transplant [facility] Floor 6 [place] [address] Sunshine George RN Vomiting 06/12/2024 Orders Only [facility] Oncology [facility] Floor 5 [place] [address] Claude Browning MD 06/11/2024 Telephone [facility] Radiology 1 [place] [address] Dorota Rogers, [place] 06/10/2024 Orders Only [facility] Oncology [address] [place] [address] Eren Lund MD Neuroendocrine carcinoma (HCC) (Primary Dx); Malignant neoplasm metastatic to liver (HCC) 06/09/2024 2:15 PM DIRECTOR VIDEO Infusion [facility] Infusion [address] [facility] Floor 5 [place] [address] 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 Dx); Neuroendocrine carcinoma (HCC); Neuro-endocrine carcinoma (HCC); 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) 06/09/2024 1:15 PM DIRECTOR VIDEO Clinical Support [facility] - Lab Collection [address] [facility] Floor 5 [place] [address] Neuroendocrine carcinoma (HCC); Malignant neoplasm metastatic to liver (HCC) 06/09/2024 11:00 AM DIRECTOR VIDEO Office Visit [facility] Oncology [facility] Floor 5 [place] [phone] Claude Browning MD Neuroendocrine carcinoma (HCC) (Primary Dx); Malignant neoplasm metastatic to liver (HCC) 06/09/2024 Orders Only [facility] Oncology [facility] Floor 5 [place] [address] Claude Browning MD Neuroendocrine carcinoma (HCC) (Primary Dx) 06/08/2024 Telephone [facility] Radiology 1 [place] [address] Dorota Rogers, [place] 05/29/2024 10:45 AM DIRECTOR VIDEO Office Visit [facility] Dermatology [address] [facility] [address] [place] [phone] Po Newberry MD PhD Actinic keratosis (Primary Dx); Purpura (HCC); Family history of melanoma; Seborrheic keratosis; Multiple benign nevi; Milia 05/29/2024 Telephone [facility] Oncology [address] [facility] Floor 5 [place] [address] Renay Renee RN 05/26/2024 9:00 AM DIRECTOR VIDEO Consult [facility] Radiation Oncology at [address] [phone] Yohana Bowen MD Neuro-endocrine carcinoma (HCC); Malignant neoplasm metastatic to liver (HCC); 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) 05/26/2024 Telephone [facility] Infusion Pharmacy [address] [facility] Floor 6 [place] [address] Callie Yousif CPhT 05/22/2024 Orders Only [facility] Oncology [address] [place] [phone] Eren Lund MD Neuroendocrine carcinoma (HCC) (Primary Dx); Malignant neoplasm metastatic to liver (HCC) 05/21/2024 9:00 AM DIRECTOR VIDEO Office Visit [facility] Radiology, Interventional Radiology [address] [facility] [address] [place] [address] Mikey Meraz MD Stage 3b chronic kidney disease (HCC) (Primary Dx); Neuro-endocrine carcinoma (HCC); Malignant neoplasm metastatic to liver (HCC); 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); 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); Anemia due to stage 3a chronic kidney disease (HCC) 05/15/2024 Telephone [facility] Radiation Oncology at [facility] [address] [phone] Yohana Bowen MD 05/14/2024 Documentation [facility] [address] [facility] Floor 6 [place] [address] Idania Pat CMA CABOMETYX PA 05/13/2024 Orders Only [facility] Oncology [address] [place] [phone] Eren Lund MD Neuro-endocrine carcinoma (HCC) (Primary Dx) 05/13/2024 Orders Only [address] [phone] Eren Lund MD 05/13/2024 Orders Only [facility] Oncology [address] [place] [phone] Eren Lund MD 05/13/2024 Orders Only [facility] Oncology [address] [place] [phone] Eren Lund MD Neuroendocrine carcinoma (HCC) (Primary Dx); Malignant neoplasm metastatic to liver (HCC) 05/13/2024 Orders Only [facility] Oncology [address] [place] [phone] Eren Lund MD 05/13/2024 Telephone [facility] Radiology 1 [place] [address] Dorota Rogers RN 05/13/2024 Telephone [facility] Radiology 1 [place] [address] Dorota Rogers, RN 05/13/2024 Orders Only [address] [address] Yoana Murray [facility] 05/12/2024 11:45 AM DIRECTOR VIDEO Infusion [address] [address] 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 Dx); Neuroendocrine carcinoma (HCC); Neuro-endocrine carcinoma (HCC); 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) 05/12/2024 10:45 AM DIRECTOR VIDEO Office Visit [facility] Oncology [address] [place] [phone] Eren Lund MD Neuro-endocrine carcinoma (HCC) (Primary Dx); Malignant neoplasm metastatic to liver (HCC); 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) 05/12/2024 10:00 AM DIRECTOR VIDEO Clinical Support [address] [address] Neuro-endocrine carcinoma (HCC); Neuroendocrine carcinoma (HCC); Malignant neoplasm metastatic to liver (HCC); Research study patient 05/12/2024 Orders Only [facility] Oncology [address] [place] [phone] Eren Lund MD 05/12/2024 Orders Only [facility] Oncology [address] [place] [phone] Eren Lund MD 05/08/2024 Orders Only [facility] Oncology [address] [place] [phone] Eren Lund MD Research study patient (Primary Dx) 05/06/2024 8:06 AM CDT - 05/06/2024 11:59 PM CDT Hospital Encounter [facility] Radiology [facility] [address] [place] [phone] Eren Lund MD Neuroendocrine carcinoma (HCC) Discharge Disposition: Discharge to home or self care 04/30/2024 Orders Only [facility] Health Information Management 1 [place] [address] Scanning, Provider 04/14/2024 12:15 PM CDT Research Med Pick-Up/CTRU Multiple Resaw Operator [address] [address] Neuro-endocrine carcinoma (HCC) (Primary Dx) 04/14/2024 11:45 AM CDT Infusion [address] [address] 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 Dx); Neuroendocrine carcinoma (HCC) 04/14/2024 10:45 AM CDT Office Visit [facility] Oncology [address] [place] [phone] Eren Lund MD Neuroendocrine carcinoma (HCC) (Primary Dx); Neuro-endocrine carcinoma (HCC); Malignant neoplasm metastatic to liver (HCC); Neuroendocrine carcinoma (CMS/HCC) (HCC) 04/14/2024 10:00 AM CDT Clinical Support [address] [place] [address] Neuro-endocrine carcinoma (HCC); Neuroendocrine carcinoma (HCC); Malignant neoplasm metastatic to liver (HCC) 04/14/2024 Orders Only [facility] Oncology [address] [facility] Floor 5 [place] [address] Hien Jaimes, [facility] 04/03/2024 Orders Only [facility] Oncology [address] [place] [phone] Eren Lund MD Neuroendocrine carcinoma (HCC) (Primary [...] materials from doctor or pharmacy Never 11/07/2022 [facility] Utilities Answer Date Recorded In the past 12 months has th e [employer], gas, oil, or water company threatened to [...] often do you attend chur ch or mandaen services? More than 4 times per year 06/20/2024 Do you belong to any clubs o r organizations such as latter-day groups, unions, fraternal or athletic groups, or [...] any time in the past [address] [facility], were you homeless or living in a fci (including now)? No 06/20/2024 Personal Safety Answer Date Recorded Have you ever been in or are you currently in a harmful physical or emotional relationship or is someone making you feel afraid or unsafe? Denies 06/16/2024 Comments No Sex and Gender Information Value Date Recorded Sex Assigned at Not on file 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 VIDEO Gender Identity Not on file Sexual Orientation [...] Comments Blood Pressure 139/45 06/20/2024 8:14 AM DIRECTOR VIDEO Pulse 95 06/20/2024 8:14 AM DIRECTOR VIDEO Temperature 36.4 ??C (97.6 ??F) 06/20/2024 7:25 AM CS T Respiratory Rate 16 06/20/2024 7:25 AM DIRECTOR VIDEO Oxygen Saturation 95% 06/20/2024 7:25 AM DIRECTOR VIDEO Inhaled Oxygen Concentration - - Weight 72.6 kg (160 lb) 06/19/2024 9:30 PM DIRECTOR VIDEO Height 160 cm (5' 3 ) 06/19/2024 7:33 AM DIRECTOR VIDEO Body Mass Index 28.34 06/19/2024 7:33 AM DIRECTOR VIDEO Plan of Treatment Health Maintenance Due Date [...] history exists Medical Devices Implanted Type Area Manufacturers Service Representative Device Identifier Shelf Expiration Date Model / Serial / Lot Left Knee Replacement Other - see comments Left: Knee Description:Left knee replac ement [employer] [id number] 6fr 26cm 145cm Radiopaque Positioner Filiform Flexible Tip - Sna - [id number] Implanted:Qty: 1 on 06/16/2024 by Mela Dejesus MD at [facility] Stent Right: Ureter [employer] [id number] 02/03/2027 [id number] / NA / [id number] [employer] Port 8fr [id number] - [id number] Implanted:Qty: 1 on 09/14/2021 at [facility] [employer] 04/18/2026 [id number] / / [id number] [employer] [place] Angio-Seal Vip 6fr Closere Device [id number] - [id number] Implanted:Qty: 1 on 06/19/2024 by Mikey Meraz MD at [facility] [employer] [facility] 11/18/2024 [id number] / / [id number] Procedures Procedure Name Priority Date/Time Associated Diagnosis Comments EGFR Routine 06/20/2024 12:59 AM DIRECTOR VIDEO DIFFERENTIAL AUTO Routine 06/20/2024 12:59 AM DIRECTOR VIDEO MAGNESIUM Routine 06/20/2024 12:59 AM DIRECTOR VIDEO HEPATIC FUNCTION PANEL Routine 06/20/2024 12:59 AM DIRECTOR VIDEO CBC WITH AUTO DIFFERENTIAL Routine 06/20/2024 12:59 AM DIRECTOR VIDEO BASIC METABOLIC PANEL Routine 06/20/2024 12:59 AM DIRECTOR VIDEO EMBOLIZATION ORGAN ISCHEMIA OR INFARCTION Schedule Routine, Read Routine (OP Routine) 06/19/2024 11:17 AM DIRECTOR VIDEO 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) BIOPSY LIVER Schedule Routine, Read Routine (OP Routine) 06/19/2024 9:00 AM DIRECTOR VIDEO 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) SURGICAL PATHOLOGY Routine 06/19/2024 8: 53 AM DIRECTOR VIDEO ANNE-MARIE (acute kidney injury) (HCC) 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 History of malignant neuroendocrine tumor 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) EGFR Routine 06/19/2024 1:56 AM DIRECTOR VIDEO DIFFERENTIAL AUTO Routine 06/19/2024 1:5 6 AM DIRECTOR VIDEO MAGNESIUM Routine 06/19/2024 1:56 AM DIRECTOR VIDEO HEPATIC FUNCTION PANEL Routine 06/19/2024 1:56 AM DIRECTOR VIDEO CBC WITH AUTO DIFFERENTIAL Routine 06/19/2024 1:56 AM DIRECTOR VIDEO BASIC METABOLIC PANEL Routine 06/19/2024 1:56 AM DIRECTOR VIDEO US KIDNEY COMPLETE IP Routine 06/18/2024 3: 53 PM DIRECTOR VIDEO XR ABDOMEN AP 1 VIEW IP Routine 06/18/2024 5:54 AM DIRECTOR VIDEO MANUAL DIFFERENTIAL Routine 06/18/2024 1 :37 AM DIRECTOR VIDEO EGFR Routine 06/18/2024 1:37 AM DIRECTOR VIDEO MAGNESIUM Routine 06/18/2024 1:37 AM DIRECTOR VIDEO HEPATIC FUNCTION PANEL Routine 06/18/2024 1:37 AM DIRECTOR VIDEO CBC WITH AUTO DIFFERENTIAL Routine 06/18/2024 1:37 AM DIRECTOR VIDEO BASIC METABOLIC PANEL Routine 06/18/2024 1:37 AM DIRECTOR VIDEO TRANSTHORACIC ECHO (TTE) COMPLETE W DOPPLER/CF W CONTRAST Routine 06/17/2024 4:25 PM DIRECTOR VIDEO MANUAL DIFFERENTIAL Routine 06/17/2024 1 :25 AM DIRECTOR VIDEO EGFR Routine 06/17/2024 1:25 AM DIRECTOR VIDEO MAGNESIUM Routine 06/17/2024 1:25 AM DIRECTOR VIDEO HEPATIC FUNCTION PANEL Routine 06/17/2024 1:25 AM DIRECTOR VIDEO CBC WITH AUTO DIFFERENTIAL Routine 06/17/2024 1:25 AM DIRECTOR VIDEO BASIC METABOLIC PANEL Routine 06/17/2024 1:25 AM DIRECTOR VIDEO FL FLUOROSCOPY < 1 HOUR IP Routine 06/16/2024 3:37 PM DIRECTOR VIDEO ND AN PROCEDURE PLACEHOLDER Routine 06/16/2024 3:30 PM DIRECTOR VIDEO ND AN ELECTIVE SUPRAGLOTTIC AIRWAY Routine 06/16/2024 3:30 PM DIRECTOR VIDEO PYELOGRAM - RETROGRADE 06/16/2024 3:03 PM DIRECTOR VIDEO ANNE-MARIE (acute kidney injury) (HCC) 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 PLACEMENT STENT - URETERAL 06/16/2024 3:03 PM DIRECTOR VIDEO ANNE-MARIE (acute kidney injury) (HCC) 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 CYSTOSCOPY 06/16/2024 3:03 PM DIRECTOR VIDEO ANNE-MARIE (acute kidney injury) (HCC) 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 MANUAL DIFFERENTIAL Routine 06/16/2024 12:50 AM DIRECTOR VIDEO EGFR Routine 06/16/2024 12:50 AM DIRECTOR VIDEO MAGNESIUM Routine 06/16/2024 12:50 AM DIRECTOR VIDEO HEPATIC FUNCTION PANEL Routine 06/16/2024 12:50 AM DIRECTOR VIDEO CBC WITH AUTO DIFFERENTIAL Routine 06/16/2024 12:50 AM DIRECTOR VIDEO BASIC METABOLIC PANEL Routine 06/16/2024 12:50 AM DIRECTOR VIDEO MANUAL DIFFERENTIAL Routine 06/15/2024 1 :26 AM DIRECTOR VIDEO EGFR Routine 06/15/2024 1:26 AM DIRECTOR VIDEO MAGNESIUM Routine 06/15/2024 1:26 AM DIRECTOR VIDEO HEPATIC FUNCTION PANEL Routine 06/15/2024 1:26 AM DIRECTOR VIDEO CBC WITH AUTO DIFFERENTIAL Routine 06/15/2024 1:26 AM DIRECTOR VIDEO BASIC METABOLIC PANEL Routine 06/15/2024 1:26 AM DIRECTOR VIDEO ECG 12-LEAD Routine 06/14/2024 8:[address] ABDOMEN PELVIS W CONTRAST ED 06/14/2024 2:26 AM DIRECTOR VIDEO PRO B-TYPE NATRIURETIC PEPTIDE STAT 06/14/2024 12:23 AM DIRECTOR VIDEO EGFR STAT 06/14/2024 12:23 AM DIRECTOR VIDEO DIFFERENTIAL AUTO STAT 06/14/2024 12:23 AM DIRECTOR VIDEO COMPREHENSIVE METABOLIC PANEL STAT 06/14/2024 12:23 AM DIRECTOR VIDEO CBC WITH AUTO DIFFERENTIAL STAT 06/14/2024 12:23 AM DIRECTOR VIDEO URINALYSIS, MICROSCOPIC ONLY STAT 06/13/2024 6:05 PM DIRECTOR VIDEO URINALYSIS AND REFLEX TO MICROSCOPIC AND CULTURE STAT 06/13/2024 6:05 PM DIRECTOR VIDEO RESPIRATORY PATHOGEN PANEL STAT 06/13/2024 4:56 PM DIRECTOR VIDEO POC BLOOD GAS AND CHEMISTRIES, ARTERIAL Routine 06/13/2024 4:53 PM DIRECTOR VIDEO MANUAL DIFFERENTIAL STAT 06/13/2024 4 :30 PM DIRECTOR VIDEO SENIOR STAFF REVIEW STAT 06/13/2024 4 :30 PM DIRECTOR VIDEO EGFR STAT 06/13/2024 4:30 PM DIRECTOR VIDEO PHOSPHORUS STAT 06/13/2024 4:30 PM DIRECTOR VIDEO MAGNESIUM STAT 06/13/2024 4:30 PM DIRECTOR VIDEO COMPREHENSIVE METABOLIC PANEL STAT 06/13/2024 4:30 PM DIRECTOR VIDEO CBC WITH AUTO DIFFERENTIAL STAT 06/13/2024 4:30 PM DIRECTOR VIDEO EGFR Routine 06/09/2024 1:27 PM DIRECTOR VIDEO Neuroendocrine carcinoma (HCC) COMPREHENSIVE METABOLIC PANEL Routine 06/09/2024 1:27 PM DIRECTOR VIDEO Neuroendocrine carcinoma (HCC) LIPID PANEL Routine 06/09/2024 1:27 PM DIRECTOR VIDEO Neuroendocrine carcinoma (HCC) Malignant neoplasm metastatic to liver (HCC) PHOSPHORUS Routine 06/09/2024 1:27 PM DIRECTOR VIDEO Neuroendocrine carcinoma (HCC) Malignant neoplasm metastatic to liver (HCC) VITAMIN D 25 HYDROXY Routine 06/09/2024 1:27 PM DIRECTOR VIDEO Neuroendocrine carcinoma (HCC) Malignant neoplasm metastatic to liver (HCC) CHROMOGRANIN A Routine 06/09/2024 1:27 PM DIRECTOR VIDEO Neuroendocrine carcinoma (HCC) Malignant neoplasm metastatic to liver (HCC) MANUAL DIFFERENTIAL STAT 05/12/2024 10:26 AM DIRECTOR VIDEO Neuro-endocrine carcinoma (HCC) EGFR STAT 05/12/2024 10:26 AM DIRECTOR VIDEO Neuro-endocrine carcinoma (HCC) DIFFERENTIAL AUTO STAT 05/12/2024 10:26 AM DIRECTOR VIDEO Neuro-endocrine carcinoma (HCC) CBC WITH AUTO DIFFERENTIAL STAT 05/12/2024 10:26 AM DIRECTOR VIDEO Neuro-endocrine carcinoma (HCC) COMPREHENSIVE METABOLIC PANEL STAT 05/12/2024 10:26 AM DIRECTOR VIDEO Neuro-endocrine carcinoma (HCC) MAGNESIUM STAT 05/12/2024 10:26 AM DIRECTOR VIDEO Neuro-endocrine carcinoma (HCC) LIPID PANEL Routine 05/12/2024 10:26 AM DIRECTOR VIDEO Neuroendocrine carcinoma (HCC) Malignant neoplasm metastatic to liver (HCC) PHOSPHORUS Routine 05/12/2024 10:26 AM DIRECTOR VIDEO Neuroendocrine carcinoma (HCC) Malignant neoplasm metastatic to liver (HCC) VITAMIN D 25 HYDROXY Routine 05/12/2024 10:26 AM DIRECTOR VIDEO Neuroendocrine carcinoma (HCC) Malignant neoplasm metastatic to liver (HCC) CHROMOGRANIN A Routine 05/12/2024 10:26 AM DIRECTOR VIDEO Neuroendocrine carcinoma (HCC) Malignant neoplasm metastatic to [...] Read Routine (OP Routine) 06/13/2023 2:01 PM DIRECTOR VIDEO Screening mammogram, encounter for HEPATITIS PANEL, ACUTE Routine 01/02/2021 2:05 PM CDT Neuro-endocrine carcinoma (CMS/HCC) DEXA AXIAL SKELETON BONE DENSITY 1 OR MORE SITES Schedule Routine, Read Routine (OP Routine) 03/10/2020 9:58 AM CDT Abnormal bone density screening from Last 3 Months or Most Recently Relevant to Health Maintenance Results * (ABNORMAL) eGFR (06/20/2024 12:59 AM DIRECTOR VIDEO) eGFR 38(L) >=60 mL/min/1. 73 m2 Comment: [...] reviewed 2021. Blood 06/20/2024 12:5 9 AM DIRECTOR VIDEO 06/20/2024 1:19 AM DIRECTOR VIDEO us Nasir Lyons MD LAB BLOOD ORDERABLES Mel badillo Result [facility] [place] [address] * (ABNORMAL) Differential, auto (06/20/2024 12:59 AM DIRECTOR VIDEO) Neutrophil abs 5.8 1.5 - 6.5 K/cumm Imm gran abs 0.1 0.0 - 0.1 K/cumm [facility] Lymphocyte abs 2.3 0.8 - 3.3 K/cumm [facility] Monocyte abs 2.7(H) 0.2 - 0.8 K/cumm [facility] Eosinophil abs 0.0 0.0 - 0.5 K/cumm [facility] Basophil abs 0.0 0.0 - 0.1 K/cumm [facility] Neutrophil pct 52.9 % [facility] Comment: Consistent with previous result Interpretive Data Percent cell count reference ranges are not reported, since discordance with absolute values may lead to misinterpretation of CBC data. Current Interpretive Data was last revised on 2017. Imm gran pct 0.5 % [facility] Comment: Interpretive Data Percent cell count reference ranges are not reported, since discordance with absolute values may lead to misinterpretation of CBC data. Current Interpretive Data was last revised on 2017. Lymphocyte pct 21.0 % [facility] Comment: Interpretive Data Percent cell count reference ranges are not reported, since discordance with absolute values may lead to misinterpretation of CBC data. Current Interpretive Data was last revised on 2017. Monocyte pct 24.9 % [facility] Comment: Interpretive Data Percent cell count reference ranges are not reported, since discordance with absolute values may lead to misinterpretation of CBC data. Current Interpretive Data was last revised on 2017. Eosinophil pct 0.3 % [facility] Comment: Interpretive Data Percent cell count reference ranges are not reported, since discordance with absolute values may lead to misinterpretation of CBC data. Current Interpretive Data was last revised on 2017. Basophil pct 0.4 % [facility] Comment: Interpretive Data Percent cell count reference ranges are not reported, since discordance with absolute values may lead to misinterpretation of CBC data. Current Interpretive Data was last revised on 2017. Blood 06/20/2024 12:5 9 AM DIRECTOR VIDEO 06/20/2024 1:20 AM DIRECTOR VIDEO Nasir Lyons MD LAB BLOOD ORDERABLES Mel l Result Performing Organization Address [facility] Co de Phone Number [facility] [place] [address] * (ABNORMAL) CBC with auto differential (06/20/2024 12:59 AM DIRECTOR VIDEO) WBC 11.0(H) 3.8 - 9.9 K/cumm Hgb 10.8(L) 11.9 - 15.5 g/dL [facility] Hct 33.7(L) 35.6 - 45.5 % [facility] Plt 133(L) 150 - 400 K/cumm [facility] MPV 10.2 9.1 - 12.3 fL [facility] RBC 3.45(L) 3.90 - 5.20 M/cumm [facility] MCV 97.7(H) 81.3 - 96.4 fL [facility] MCH 31.3 27.1 - 33.3 pg [facility] MCHC 32.0(L) 32.3 - 35.7 g/dL [facility] RDW CV 14.6 11.1 - 14.9 % [facility] RDW SD 52.6(H) 35.7 - 48.1 fL [facility] NRBC abs 0.00 0.00 - 0.01 K/cumm [facility] Blood 06/20/2024 12:5 9 AM DIRECTOR VIDEO 06/20/2024 1:20 AM DIRECTOR VIDEO Nasir Lyons MD LAB BLOOD ORDERABLES Mel l Result Performing Organization Address [facility] Co de Phone Number [facility] [address] * Magnesium (06/20/2024 12:59 AM DIRECTOR VIDEO) [facility] Magnesium 1.4 1.4 - 2.5 mg/dL Blood 06/20/2024 12:5 9 AM DIRECTOR VIDEO 06/20/2024 1:19 AM DIRECTOR VIDEO Nasir Lyons MD LAB BLOOD ORDERABLES Mel l Result Performing Organization Address [facility]/ZIP [place] [address] * (ABNORMAL) Hepatic function panel (06/20/2024 12:59 AM DIRECTOR VIDEO) [facility] Bilirubin, total 0.6 0.1 - 1.2 mg/dL Bilirubin, direct <0.2 0.1 - 0.3 mg/dL [facility] Protein, pl 6.2(L) 6.5 - 8.5 g/dL [facility] Albumin 3.8 3.5 - 5.0 g/dL [facility] Alk phos 85 40 - 130 Units/L [facility] ALT 164(H) 7 - 45 Units/L [facility] Comment:Reviewed AST 433(H) 10 - 45 Units/L [facility] Comment:Reviewed Blood 06/20/2024 12:5 9 AM DIRECTOR VIDEO 06/20/2024 1:19 AM DIRECTOR VIDEO Nasir Lyons MD LAB BLOOD ORDERABLES [place] [address] * (ABNORMAL) Basic metabolic panel (06/20/2024 12:59 AM DIRECTOR VIDEO) [facility] Sodium 138 135 - 145 mmol/L Potassium, pl 3.5 3.3 - 4.9 mmol/L [facility] Chloride 105 97 - 110 mmol/L [facility] CO2 25 22 - 32 mmol/L [facility] Anion gap 8 2 - 15 mmol/L [facility] BUN 12 6 - 25 mg/dL [facility] Creatinine 1.44(H) 0.60 - 1.10 mg/dL [facility] Glucose 123 70 - 199 mg/dL [facility] [...] 2022. Calcium 8.1(L) 8.5 - 10.3 mg/dL [facility] Blood 06/20/2024 12:5 9 AM DIRECTOR VIDEO 06/20/2024 1:19 AM DIRECTOR VIDEO us Nasir Lyons MD LAB BLOOD ORDERABLES Mel badillo Result [facility] [place] [address] * IR Embolization Tumor Organ Ischemia or Infarction (06/19/2024 11:17 AM DIRECTOR VIDEO) Anatomical Region Laterality Modality Body N/A X-Ray Angiograph y 06/19/2024 4:13 PM DIRECTOR VIDEO Impressions 06/19/2024 4:15 PM DIRECTOR VIDEO Successful diagnostic angiography and chemo-embolization of the right posterior liver using 25 mg doxorubicin and Ethiodol and Gelfoam. PLAN: Interventional radiology will coordinate outpatient follow-up. Dictated by: Dar Willett M.D. The radiology attending physician has personally reviewed this study, and had reviewed and/or edited this written report and agrees with it. Electronically signed by: Mikey Meraz M.D. Narrative 06/19/2024 4:15 PM DIRECTOR VIDEO EXAMINATION: ??DIAGNOSTIC VISCERAL ANGIOGRAPHY AND TRANSARTERIAL CHEMOEMBOLIZATION [...] was obtained. Prior to beginning the procedure, [place] Protocol was performed to confirm the patient's [...] the patent vessel was recorded. A 6 Cuban sheath was placed and connected to a heparinized saline drip. Using fluoroscopic guidance, the following arteries were catheterized and selective diagnostic angiograms were performed: Common hepatic artery with Nancy CT Posterior division of the right hepatic artery (3rd order) The equipment used for catheterization was 5 Cuban LEV catheter and a Glidewire. ??The equipment used for selective catheterization was 2.7-Cuban Progreat catheter and a fathom wire. The [...] was obtained. Prior to beginning the procedure, [place] Protocol was performed to confirm the patient's [...] the patent vessel was recorded. A 6 Cuban sheath was placed and connected to a heparinized saline drip. Using fluoroscopic guidance, the following arteries were catheterized and selective diagnostic angiograms were performed: Common hepatic artery with Nancy CT Posterior division of the right hepatic artery (3rd order) The equipment used for catheterization was 5 Cuban LEV catheter and a Glidewire. The equipment used for selective catheterization was 2.7-Cuban Progreat catheter and a fathom wire. 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 PLAN: Patient will proceed to the interventional radiology area for chemoembolization. Dictated by: Dar Willett M.D. The radiology attending physician has personally reviewed this study, and had reviewed and/or edited this written report and agrees with it. Electronically signed by: Mikey Meraz M.D. Narrative 06/19/2024 4:10 PM DIRECTOR VIDEO EXAMINATION: IMAGE-GUIDED BIOPSY OF LIVER HISTORY/INDICATION: 73-year-old [...] was obtained. Prior to beginning the procedure, [place] Protocol was performed to confirm the patient's [...] was obtained. Prior to beginning the procedure, [place] Protocol was performed to confirm the patient's [...] Result * Surgical pathology (06/19/2024 8:53 AM DIRECTOR VIDEO) Tissue (Soft tissue biopsy) 06/19/2024 8:53 AM DIRECTOR VIDEO Narrative PATHOLOGY [facility] - 06/23/2024 3:41 PM DIRECTOR VIDEO EPIC results best viewed via link to PDF [facility] [place] [address] Note to Patients: This report may contain [...] Gender: ??F : ??1950 (Age: 73) Address: ??[address] [place] [address] ??[id number] Hospital #: ??[id number] Taken:06/19/2024 Received:06/19/2024 Reported: 06/23/2024 Patient Type: [facility] Inpatient ?? Service: Oncology Location: [facility] ??[id number] Physician(s): ??MD Julio César Serrato M.D. Diagnosis: [...] Surgical Pathology and Flow Cytometry Departments at [facility] as part of an ongoing clinical quality manager program and in compliance with federally mandated [...] Surgical Pathology and Flow Cytometry Departments of [facility]. ??It has not been cleared or approved by the U. S. Food and Drug Administration. IMAGES AND SCANNED DOCUMENTS, IF INCLUDED, ONLY VIEWABLE IN PDF VERSION OF REPORT Dana Cancino MD LAB PATHOLOGY ORDERABLES Fin al Result PATHOLOGY [facility] 3rd Floor [place], [place] [phone] * (ABNORMAL) eGFR (06/19/2024 1:56 AM DIRECTOR VIDEO) eGFR 37(L) >=60 mL/min/1. 73 m2 Comment: [...] last reviewed 2021. Blood 06/19/2024 1:56 AM DIRECTOR VIDEO 06/19/2024 2:31 AM DIRECTOR VIDEO us Nasir Lyons MD LAB BLOOD ORDERABLES Mel badillo Result [facility] [place] [address] * (ABNORMAL) Differential, auto (06/19/2024 1:56 AM DIRECTOR VIDEO) Neutrophil abs 2.1 1.5 - 6.5 K/cumm Imm gran abs 0.0 0.0 - 0.1 K/cumm [facility] Lymphocyte abs 2.7 0.8 - 3.3 K/cumm [facility] Monocyte abs 4.0(H) 0.2 - 0.8 K/cumm [facility] Eosinophil abs 0.1 0.0 - 0.5 K/cumm [facility] Basophil abs 0.0 0.0 - 0.1 K/cumm [facility] Neutrophil pct 23.5 % [facility] Comment: Confirmed by smear review Interpretive Data Percent cell count reference ranges are not reported, since discordance with absolute values may lead to misinterpretation of CBC data. Current Interpretive Data was last revised on 2017. Imm gran pct 0.3 % [facility] Comment: Interpretive Data Percent cell count reference ranges are not reported, since discordance with absolute values may lead to misinterpretation of CBC data. Current Interpretive Data was last revised on 2017. Lymphocyte pct 30.2 % [facility] Comment: Interpretive Data Percent cell count reference ranges are not reported, since discordance with absolute values may lead to misinterpretation of CBC data. Current Interpretive Data was last revised on 2017. Monocyte pct 44.4 % [facility] Comment: Interpretive Data Percent cell count reference ranges are not reported, since discordance with absolute values may lead to misinterpretation of CBC data. Current Interpretive Data was last revised on 2017. Eosinophil pct 1.3 % [facility] Comment: Interpretive Data Percent cell count reference ranges are not reported, since discordance with absolute values may lead to misinterpretation of CBC data. Current Interpretive Data was last revised on 2017. Basophil pct 0.3 % [facility] Comment: Interpretive Data Percent cell count reference ranges are not reported, since discordance with absolute values may lead to misinterpretation of CBC data. Current Interpretive Data was last revised on 2017. Blood 06/19/2024 1:56 AM DIRECTOR VIDEO 06/19/2024 2:32 AM DIRECTOR VIDEO Nasir Lyons MD LAB BLOOD ORDERABLES Mel l Result Performing Organization Address City/[facility]/ZIP Co de Phone Number [facility] [place] [address] * (ABNORMAL) CBC with auto differential (06/19/2024 1:56 AM DIRECTOR VIDEO) WBC 9.1 3.8 - 9.9 K/cumm Hgb 10.1(L) 11.9 - 15.5 g/dL [facility] Hct 31.7(L) 35.6 - 45.5 % [facility] Plt 148(L) 150 - 400 K/cumm [facility] MPV 10.9 9.1 - 12.3 fL [facility] RBC 3.24(L) 3.90 - 5.20 M/cumm [facility] MCV 97.8(H) 81.3 - 96.4 fL [facility] MCH 31.2 27.1 - 33.3 pg [facility] MCHC 31.9(L) 32.3 - 35.7 g/dL [facility] RDW CV 14.3 11.1 - 14.9 % [facility] RDW SD 51.9(H) 35.7 - 48.1 fL [facility] NRBC abs 0.00 0.00 - 0.01 K/cumm [facility] Blood 06/19/2024 1:56 AM DIRECTOR VIDEO 06/19/2024 2:32 AM DIRECTOR VIDEO Nasir Lyons MD LAB BLOOD ORDERABLES Mel l Result Performing Organization Address [facility]/ZIP Co de Phone Number [facility] [place] [address] * Magnesium (06/19/2024 1:56 AM DIRECTOR VIDEO) [facility] Magnesium 1.6 1.4 - 2.5 mg/dL Blood 06/19/2024 1:56 AM DIRECTOR VIDEO 06/19/2024 2:31 AM DIRECTOR VIDEO Nasir Lyons MD LAB BLOOD ORDERABLES Mel l Result Performing Organization Address [facility] de Phone Number [facility] [place] [address] * (ABNORMAL) Hepatic function panel (06/19/2024 1:56 AM DIRECTOR VIDEO) [facility] Bilirubin, total 0.4 0.1 - 1.2 mg/dL Bilirubin, direct <0.2 0.1 - 0.3 mg/dL [facility] Protein, pl 5.9(L) 6.5 - 8.5 g/dL [facility] Albumin 3.5 3.5 - 5.0 g/dL [facility] Alk phos 61 40 - 130 Units/L [facility] ALT 5(L) 7 - 45 Units/L [facility] AST 21 10 - 45 Units/L [facility] Blood 06/19/2024 1:56 AM DIRECTOR VIDEO 06/19/2024 2:31 AM DIRECTOR VIDEO Nasir Lyons MD LAB BLOOD ORDERABLES Mel l Result Performing Organization Address [facility] de Phone Number [facility] [place] [address] * (ABNORMAL) Basic metabolic panel (06/19/2024 1:56 AM DIRECTOR VIDEO) [facility] Sodium 141 135 - 145 mmol/L Potassium, pl 3.8 3.3 - 4.9 mmol/L [facility] Chloride 107 97 - 110 mmol/L [facility] CO2 24 22 - 32 mmol/L [facility] Anion gap 10 2 - 15 mmol/L [facility] BUN 14 6 - 25 mg/dL [facility] Creatinine 1.48(H) 0.60 - 1.10 mg/dL [facility] Glucose 121 70 - 199 mg/dL [facility] [...] 2022. Calcium 8.4(L) 8.5 - 10.3 mg/dL [facility] Blood 06/19/2024 1:56 AM DIRECTOR VIDEO 06/19/2024 2:31 AM DIRECTOR VIDEO us Nasir Lyons MD LAB BLOOD ORDERABLES Mel l Result [facility] [place] [address] * US Kidney Complete (06/18/2024 3:53 PM DIRECTOR VIDEO) Anatomical Region Laterality Modality Kidney N/A Ultrasound 06/18/2024 3:55 PM DIRECTOR VIDEO Impressions 06/18/2024 4:09 PM DIRECTOR VIDEO 1. ??No hydronephrosis. ??Previously described right-sided hydronephrosis has resolved. 2. ??Normal renal echogenicity. Dictated by: Greyson Anthony M.D. The radiology attending physician has personally reviewed this study, and had reviewed and/or edited this written report and agrees with it. Electronically signed by: Immanuel Bennett M.D. Narrative 06/18/2024 4:09 PM DIRECTOR VIDEO EXAMINATION: COMPLETE RENAL SONOGRAM HISTORY: ??Metastatic neuroendocrine [...] Immanuel Bennett M.D. us Dana Cancino MD [facility] US PROCEDURES Final Resu lt * XR Abdomen Ap 1 Vw (06/18/2024 5:54 AM DIRECTOR VIDEO) Anatomical Region Laterality Modality Body, Abdomen N/A Computed Radiogr aphy 06/18/2024 11:3 4 AM DIRECTOR VIDEO Impressions 06/18/2024 11:44 AM DIRECTOR VIDEO A single view of the abdomen is [...] Brock Malik M.D. Narrative 06/18/2024 11:44 AM DIRECTOR VIDEO EXAMINATION: Abdomen, one view. HISTORY: Check stent [...] lt * (ABNORMAL) eGFR (06/18/2024 1:37 AM DIRECTOR VIDEO) [facility] eGFR 33(L) >=60 mL/min/1. 73 m2 Comment: [...] last reviewed 2021. Blood 06/18/2024 1:37 AM DIRECTOR VIDEO 06/18/2024 2:11 AM DIRECTOR VIDEO us Nasir Lyons MD LAB BLOOD ORDERABLES Mel badillo Result [facility] [place] [address] * (ABNORMAL) CBC with auto differential (06/18/2024 1:37 AM DIRECTOR VIDEO) WBC 9.0 3.8 - 9.9 K/cumm Hgb 10.2(L) 11.9 - 15.5 g/dL [facility] Hct 32.0(L) 35.6 - 45.5 % [facility] Plt 155 150 - 400 K/cumm [facility] MPV 10.4 9.1 - 12.3 fL [facility] RBC 3.28(L) 3.90 - 5.20 M/cumm [facility] MCV 97.6(H) 81.3 - 96.4 fL [facility] MCH 31.1 27.1 - 33.3 pg [facility] MCHC 31.9(L) 32.3 - 35.7 g/dL [facility] RDW CV 14.6 11.1 - 14.9 % [facility] RDW SD 52.8(H) 35.7 - 48.1 fL [facility] NRBC abs 0.00 0.00 - 0.01 K/cumm [facility] Blood 06/18/2024 1:37 AM DIRECTOR VIDEO 06/18/2024 2:13 AM DIRECTOR VIDEO Nasir Lyons MD LAB BLOOD ORDERABLES Mel l Result Performing Organization Address City/[facility] Co de Phone Number [facility] Department [place] [address] * (ABNORMAL) Manual Differential (06/18/2024 1:37 AM DIRECTOR VIDEO) Differential Manual Cells Counted 114 [facility] Neutrophil abs 3.2 1.5 - 6.5 K/cumm [facility] Imm gran abs 0.0 0.0 - 0.1 K/cumm [facility] Lymphocyte abs 4.8(H) 0.8 - 3.3 K/cumm [facility] Monocyte abs 1.0(H) 0.2 - 0.8 K/cumm [facility] Neutrophil pct 36.0 % [facility] Comment: Interpretive Data Percent cell count reference ranges are not reported, since discordance with absolute values may lead to misinterpretation of CBC data. Current Interpretive Data was last revised on 2017. Lymphocyte pct 53.5 % [facility] Comment: Interpretive Data Percent cell count reference ranges are not reported, since discordance with absolute values may lead to misinterpretation of CBC data. Current Interpretive Data was last revised on 2017. Monocyte pct 10.5 % [facility] Comment: Interpretive Data Percent cell count reference ranges are not reported, since discordance with absolute values may lead to misinterpretation of CBC data. Current Interpretive Data was last revised on 2017. Blood 06/18/2024 1:37 AM DIRECTOR VIDEO 06/18/2024 2:16 AM DIRECTOR VIDEO Nasir Lyons MD LAB BLOOD ORDERABLES Mel l Result Performing Organization Address [facility] Co de Phone Number [facility] [place] [address] * Magnesium (06/18/2024 1:37 AM DIRECTOR VIDEO) [facility] Magnesium 1.6 1.4 - 2.5 mg/dL Blood 06/18/2024 1:37 AM DIRECTOR VIDEO 06/18/2024 2:11 AM DIRECTOR VIDEO Nasir Lyons MD LAB BLOOD ORDERABLES Mel l Result [facility] [place] [address] * (ABNORMAL) Hepatic function panel (06/18/2024 1:37 AM DIRECTOR VIDEO) [facility] Bilirubin, total 0.5 0.1 - 1.2 mg/dL Bilirubin, direct <0.2 0.1 - 0.3 mg/dL [facility] Protein, pl 6.0(L) 6.5 - 8.5 g/dL [facility] Albumin 3.7 3.5 - 5.0 g/dL [facility] Alk phos 62 40 - 130 Units/L [facility] ALT 11 7 - 45 Units/L [facility] AST 24 10 - 45 Units/L [facility] Blood 06/18/2024 1:37 AM DIRECTOR VIDEO 06/18/2024 2:11 AM DIRECTOR VIDEO Nasir Lyons MD LAB BLOOD ORDERABLES Mel l Result [facility] [place] [address] * (ABNORMAL) Basic metabolic panel (06/18/2024 1:37 AM DIRECTOR VIDEO) [facility] Sodium 141 135 - 145 mmol/L Potassium, pl 3.2(L) 3.3 - 4.9 mmol/L [facility] Chloride 107 97 - 110 mmol/L [facility] CO2 26 22 - 32 mmol/L [facility] Anion gap 8 2 - 15 mmol/L [facility] BUN 14 6 - 25 mg/dL [facility] Creatinine 1.62(H) 0.60 - 1.10 mg/dL [facility] Glucose 95 70 - 199 mg/dL [facility] [...] 2022. Calcium 8.1(L) 8.5 - 10.3 mg/dL [facility] Blood 06/18/2024 1:37 AM DIRECTOR VIDEO 06/18/2024 2:11 AM DIRECTOR VIDEO us Nasir Lyons MD LAB BLOOD ORDERABLES Mel badillo Result [facility] [place] [address] * TRANSTHORACIC ECHO (TTE) COMPLETE W DOPPLER/CF W CONTRAST (06/17/2024 4:25 PM DIRECTOR VIDEO) LV EF 66 % CARDIOREPORT Anatomical Region Laterality Modality Ultrasound 06/17/2024 3:00 PM DIRECTOR VIDEO Narrative 06/17/2024 5:02 PM DIRECTOR VIDEO Patient name: La Chung Date of test: 06/17/2024 Type of test: TTE w/Doppler Hospital #: [id number] Date of : 1950 (F) Tooling Supervisor: MICHAEL Blankenship Referring Physician: DANA CANCINO MD Contrast Agent: 1.1 ml Optison Administered, (1.9 ml wasted). Contrast Administered by: Supervised/Interpreted by: Parth ??MD April Diagnosis: Location: [facility] Reason for test: Shortness of Breath MV [...] 2=Hypo 3=Akinetic 4=Dyskin./Aneurysm 0=Not visualized) Parasternal Long [place]:MAS=1 BAS=1 MIL=1 ALLEY=1 Parasternal Short [place]:MAS=1 MIS=1 FL=1 MIL=1 MAL=1 MA=1 Apical 4 Chambers:=1 MIS=1 BIS=1 BAL=1 MAL=1 AL=1 AC=1 Apical 2 Chambers:AI=1 FL=1 BI=1 BA=1 MA=1 AA=1 AC=1 LV Global Longitudinal Strain: -16% ??(Normal <-17%) RV Global Longitudinal Strain: LV Function: Normal LV Ejection Fraction, ??(EF=54-74%) RV Function: Normal Septal Motion: Normal Pericardial Effusion: trace Atrial Septum: Normal DOPPLER/COLOR FLOW DOPPLER RESULTS: Diastolic Function: Grade I, altered relax. w/N. LA pres. Tricuspid Valve: normal TV Pulmonic Valve: Mild ND AV Regurgitation: No AR seen AV Stenosis: [...] no , no MS, normal TV, Mild ND. Diastolic function: Grade I, altered relax. w/N. [...] April By signing this report, the attending yard goods salesperson certifies that he or she has personally supervised and interpreted the echocardiogram and has reviewed and or edited and agrees with the written comments contained within the report. Procedure Note Parth Chen MD - 06/17/2024 Patient name: La Chung Date of test: 06/17/2024 Type of test: TTE w/Doppler Hospital #: [id number] Date of : 1950 (F) Tooling Supervisor: MICHAEL Blankenship Referring Physician: DANA CANCINO MD Contrast Agent: 1.1 ml Optison Administered, (1.9 ml wasted). Contrast Administered by: Supervised/Interpreted by: Parth Chen MD Diagnosis: Location: [facility] Reason for test: Shortness of Breath MV [...] 2=Hypo 3=Akinetic 4=Dyskin./Aneurysm 0=Not visualized) Parasternal Long [place]:MAS=1 BAS=1 MIL=1 ALLEY=1 Parasternal Short [place]:MAS=1 MIS=1 FL=1 MIL=1 MAL=1 MA=1 Apical 4 Chambers:=1 MIS=1 BIS=1 BAL=1 MAL=1 AL=1 AC=1 Apical 2 Chambers:AI=1 FL=1 BI=1 BA=1 MA=1 AA=1 AC=1 LV Global Longitudinal Strain: -16% (Normal <-17%) RV Global Longitudinal Strain: LV Function: Normal LV Ejection Fraction, (EF=54-74%) RV Function: Normal Septal Motion: Normal Pericardial Effusion: trace Atrial Septum: Normal DOPPLER/COLOR FLOW DOPPLER RESULTS: Diastolic Function: Grade I, altered relax. w/N. LA pres. Tricuspid Valve: normal TV Pulmonic Valve: Mild ND AV Regurgitation: No AR seen AV Stenosis: [...] no , no MS, normal TV, Mild ND. Diastolic function: Grade I, altered relax. w/N. [...] MD By signing this report, the attending yard goods salesperson certifies that he or she has personally supervised and interpreted the echocardiogram and has reviewed and or edited and agrees with the written comments contained within the report. us Dana Cancino MD CV ECHO PROCEDURES Final Res ult * (ABNORMAL) eGFR (06/17/2024 1:25 AM DIRECTOR VIDEO) [facility] eGFR 32(L) >=60 mL/min/1. 73 m2 Comment: [...] last reviewed 2021. Blood 06/17/2024 1:25 AM DIRECTOR VIDEO 06/17/2024 1:49 AM DIRECTOR VIDEO Nasir Lyons MD LAB BLOOD ORDERABLES Mel aby Result Performing Organization Address [facility] de Phone Number [facility] [place] [address] * (ABNORMAL) CBC with auto differential (06/17/2024 1:25 AM DIRECTOR VIDEO) Pathologist [facility] WBC 11.3(H) 3.8 - 9.9 K/cumm Hgb 11.4(L) 11.9 - 15.5 g/dL [facility] Hct 35.1(L) 35.6 - 45.5 % [facility] Plt 156 150 - 400 K/cumm [facility] MPV 10.1 9.1 - 12.3 fL [facility] RBC 3.62(L) 3.90 - 5.20 M/cumm [facility] MCV 97.0(H) 81.3 - 96.4 fL [facility] MCH 31.5 27.1 - 33.3 pg [facility] MCHC 32.5 32.3 - 35.7 g/dL [facility] RDW CV 14.6 11.1 - 14.9 % [facility] RDW SD 52.3(H) 35.7 - 48.1 fL [facility] NRBC abs 0.00 0.00 - 0.01 K/cumm [facility] Blood 06/17/2024 1:25 AM DIRECTOR VIDEO 06/17/2024 1:50 AM DIRECTOR VIDEO Nasir Lyons MD LAB BLOOD ORDERABLES Mel badillo Result Performing Organization Address [facility] Co de Phone Number [facility] [place] [address] * (ABNORMAL) Manual Differential (06/17/2024 1:25 AM DIRECTOR VIDEO) Pathologist [facility] Differential Manual Cells Counted 126 [facility] Neutrophil abs 2.8 1.5 - 6.5 K/cumm [facility] Imm gran abs 0.1 0.0 - 0.1 K/cumm [facility] Lymphocyte abs 6.9(H) 0.8 - 3.3 K/cumm [facility] Monocyte abs 1.5(H) 0.2 - 0.8 K/cumm [facility] Neutrophil pct 24.6 % [facility] Comment: Interpretive Data Percent cell count reference ranges are not reported, since discordance with absolute values may lead to misinterpretation of CBC data. Current Interpretive Data was last revised on 2017. Lymphocyte pct 60.3 % [facility] Comment: Interpretive Data Percent cell count reference ranges are not reported, since discordance with absolute values may lead to misinterpretation of CBC data. Current Interpretive Data was last revised on 2017. Monocyte pct 13.5 % [facility] Comment: Interpretive Data Percent cell count reference ranges are not reported, since discordance with absolute values may lead to misinterpretation of CBC data. Current Interpretive Data was last revised on 2017. Metamyelocyte pct 0.8 % [facility] Variant lymph pct 0.8 % [facility] Blood 06/17/2024 1:25 AM DIRECTOR VIDEO 06/17/2024 1:54 AM DIRECTOR VIDEO Nasir Lyons MD LAB BLOOD ORDERABLES Mel l Result Performing Organization Address City/[facility] Co de Phone Number [facility] [place] [address] * Magnesium (06/17/2024 1:25 AM DIRECTOR VIDEO) Magnesium 1.8 1.4 - 2.5 mg/dL Blood 06/17/2024 1:25 AM DIRECTOR VIDEO 06/17/2024 1:49 AM DIRECTOR VIDEO Nasir Lyons MD LAB BLOOD ORDERABLES Mel l Result Performing Organization Address City/[facility] Co de Phone Number [facility] [place] [address] * Hepatic function panel (06/17/2024 1:25 AM DIRECTOR VIDEO) [facility] Bilirubin, total 0.6 0.1 - 1.2 mg/dL Bilirubin, direct <0.2 0.1 - 0.3 mg/dL [facility] Comment:Reviewed Protein, pl 6.6 6.5 - 8.5 g/dL [facility] Albumin 3.9 3.5 - 5.0 g/dL [facility] Alk phos 75 40 - 130 Units/L [facility] ALT 11 7 - 45 Units/L [facility] AST 25 10 - 45 Units/L [facility] Blood 06/17/2024 1:25 AM DIRECTOR VIDEO 06/17/2024 1:49 AM DIRECTOR VIDEO Nasir Lyons MD LAB BLOOD ORDERABLES Mel l Result [facility] [place] [address] * (ABNORMAL) Basic metabolic panel (06/17/2024 1:25 AM DIRECTOR VIDEO) [facility] Sodium 142 135 - 145 mmol/L Potassium, pl 3.6 3.3 - 4.9 mmol/L [facility] Chloride 107 97 - 110 mmol/L [facility] CO2 22 22 - 32 mmol/L [facility] Anion gap 13 2 - 15 mmol/L [facility] BUN 15 6 - 25 mg/dL [facility] Creatinine 1.65(H) 0.60 - 1.10 mg/dL [facility] Glucose 107 70 - 199 mg/dL [facility] [...] 2022. Calcium 8.3(L) 8.5 - 10.3 mg/dL [facility] Blood 06/17/2024 1:25 AM DIRECTOR VIDEO 06/17/2024 1:49 AM DIRECTOR VIDEO Nasir Lyons MD LAB BLOOD ORDERABLES Mel l Result [facility] [place] [address] * FL Fluoroscopy < 1 Hour (06/16/2024 3:37 PM DIRECTOR VIDEO) Narrative [email or web address] - 06/16/2024 3:37 PM DIRECTOR VIDEO The images from this study are not interpreted by Radiology. ??Please refer to the physician's procedure / OR operative note. Mela Dejesus MD IMG FLUOROSCOPY PROCEDURE S Final Result Performing Organization Address [facility] Co de Phone Number [email or web address] * ND AN ELECTIVE SUPRAGLOTTIC AIRWAY, ND AN PROCEDURE PLACEHOLDER (06/16/2024 3:30 PM DIRECTOR VIDEO) Narrative Danielle Kirk CRNA - 06/16/2024 3:30 PM DIRECTOR VIDEO Danielle Kirk CRNA ? 06/16/2024 ??3:31 PM Airway Patient location: OR Urgency: elective Indications for airway management: anesthesia Difficult airway: no Staff: Supervising provider: Elissa Rosales MD Placed by: TACKER OFF: Danielle Kirk CRNA Emergent airway documentation: Risks [...] esult * (ABNORMAL) eGFR (06/16/2024 12:50 AM DIRECTOR VIDEO) eGFR 26(L) >=60 mL/min/1. 73 m2 Comment: [...] reviewed 2021. Blood 06/16/2024 12:5 0 AM DIRECTOR VIDEO 06/16/2024 1:22 AM DIRECTOR VIDEO us Nasir Lyons MD LAB BLOOD ORDERABLES Mel l Result [facility] Department [place] [address] * (ABNORMAL) CBC with auto differential (06/16/2024 12:50 AM DIRECTOR VIDEO) WBC 11.2(H) 3.8 - 9.9 K/cumm Hgb 11.0(L) 11.9 - 15.5 g/dL [facility] Hct 35.0(L) 35.6 - 45.5 % [facility] Plt 149(L) 150 - 400 K/cumm [facility] MPV 10.1 9.1 - 12.3 fL [facility] RBC 3.53(L) 3.90 - 5.20 M/cumm [facility] MCV 99.2(H) 81.3 - 96.4 fL [facility] MCH 31.2 27.1 - 33.3 pg [facility] MCHC 31.4(L) 32.3 - 35.7 g/dL [facility] RDW CV 15.0(H) 11.1 - 14.9 % [facility] RDW SD 54.4(H) 35.7 - 48.1 fL [facility] NRBC abs 0.00 0.00 - 0.01 K/cumm [facility] Blood 06/16/2024 12:5 0 AM DIRECTOR VIDEO 06/16/2024 1:22 AM DIRECTOR VIDEO us Nasir Lyons MD LAB BLOOD ORDERABLES Mel badillo Result [facility] Department [place] [address] * (ABNORMAL) Manual Differential (06/16/2024 12:50 AM DIRECTOR VIDEO) Differential Manual Cells Counted 124 [facility] Neutrophil abs 1.9 1.5 - 6.5 K/cumm [facility] Imm gran abs 0.0 0.0 - 0.1 K/cumm [facility] Lymphocyte abs 8.0(H) 0.8 - 3.3 K/cumm [facility] Monocyte abs 1.3(H) 0.2 - 0.8 K/cumm [facility] Neutrophil pct 16.9 % [facility] Comment: Interpretive Data Percent cell count reference ranges are not reported, since discordance with absolute values may lead to misinterpretation of CBC data. Current Interpretive Data was last revised on 2017. Lymphocyte pct 71.8 % [facility] Comment: Interpretive Data Percent cell count reference ranges are not reported, since discordance with absolute values may lead to misinterpretation of CBC data. Current Interpretive Data was last revised on 2017. Monocyte pct 11.3 % [facility] Comment: Interpretive Data Percent cell count reference ranges are not reported, since discordance with absolute values may lead to misinterpretation of CBC data. Current Interpretive Data was last revised on 2017. Blood 06/16/2024 12:5 0 AM DIRECTOR VIDEO 06/16/2024 3:05 AM DIRECTOR VIDEO Nasir Lyons MD LAB BLOOD ORDERABLES Mel l Result Performing Organization Address City/[facility]/ZIP Co de Phone Number [facility] [place] [address] * Magnesium (06/16/2024 12:50 AM DIRECTOR VIDEO) [facility] Magnesium 1.9 1.4 - 2.5 mg/dL Blood 06/16/2024 12:5 0 AM DIRECTOR VIDEO 06/16/2024 1:22 AM DIRECTOR VIDEO Nasir Lyons MD LAB BLOOD ORDERABLES Mel l Result Performing Organization Address [facility]/ZIP Co de Phone Number [facility] [place] [address] * (ABNORMAL) Hepatic function panel (06/16/2024 12:50 AM DIRECTOR VIDEO) Pathologist [facility] Bilirubin, total 0.8 0.1 - 1.2 mg/dL Bilirubin, direct 0.2 0.1 - 0.3 mg/dL [facility] Comment:Reviewed Protein, pl 6.3(L) 6.5 - 8.5 g/dL [facility] Albumin 4.1 3.5 - 5.0 g/dL [facility] Alk phos 71 40 - 130 Units/L [facility] ALT 9 7 - 45 Units/L [facility] AST 26 10 - 45 Units/L [facility] Blood 06/16/2024 12:5 0 AM DIRECTOR VIDEO 06/16/2024 1:22 AM DIRECTOR VIDEO Naisr Lyons MD LAB BLOOD ORDERABLES Mel l Result Performing Organization Address [facility]/ZIP Co de Phone Number [facility] [place] [address] * (ABNORMAL) Basic metabolic panel (06/16/2024 12:50 AM DIRECTOR VIDEO) [facility] Sodium 141 135 - 145 mmol/L Potassium, pl 4.0 3.3 - 4.9 mmol/L [facility] Chloride 108 97 - 110 mmol/L [facility] CO2 22 22 - 32 mmol/L [facility] Anion gap 11 2 - 15 mmol/L [facility] BUN 17 6 - 25 mg/dL [facility] Creatinine 1.97(H) 0.60 - 1.10 mg/dL [facility] Glucose 107 70 - 199 mg/dL [facility] [...] 2022. Calcium 8.7 8.5 - 10.3 mg/dL [facility] Blood 06/16/2024 12:5 0 AM DIRECTOR VIDEO 06/16/2024 1:22 AM DIRECTOR VIDEO Nasir Lyons MD LAB BLOOD ORDERABLES Mel l Result Performing Organization Address [facility]/ZIP Co de Phone Number [facility] [place] [address] * (ABNORMAL) eGFR (06/15/2024 1:26 AM DIRECTOR VIDEO) eGFR 27(L) >=60 mL/min/1. 73 m2 Comment: [...] last reviewed 2021. Blood 06/15/2024 1:26 AM DIRECTOR VIDEO 06/15/2024 1:36 AM DIRECTOR VIDEO us Nasir Lyons MD LAB BLOOD ORDERABLES Mel badillo Result [facility] [place] [address] * (ABNORMAL) CBC with auto differential (06/15/2024 1:26 AM DIRECTOR VIDEO) WBC 10.5(H) 3.8 - 9.9 K/cumm Hgb 10.9(L) 11.9 - 15.5 g/dL [facility] Hct 34.1(L) 35.6 - 45.5 % [facility] Plt 149(L) 150 - 400 K/cumm [facility] MPV 10.1 9.1 - 12.3 fL [facility] RBC 3.47(L) 3.90 - 5.20 M/cumm [facility] MCV 98.3(H) 81.3 - 96.4 fL [facility] MCH 31.4 27.1 - 33.3 pg [facility] MCHC 32.0(L) 32.3 - 35.7 g/dL [facility] RDW CV 14.8 11.1 - 14.9 % [facility] RDW SD 53.0(H) 35.7 - 48.1 fL [facility] NRBC abs 0.00 0.00 - 0.01 K/cumm [facility] Blood 06/15/2024 1:26 AM DIRECTOR VIDEO 06/15/2024 1:36 AM DIRECTOR VIDEO us Nasir Lyons MD LAB BLOOD ORDERABLES Mel l Result [facility] Department [place] [address] * (ABNORMAL) Manual Differential (06/15/2024 1:26 AM DIRECTOR VIDEO) Differential Manual Cells Counted 122 [facility] Neutrophil abs 4.5 1.5 - 6.5 K/cumm [facility] Imm gran abs 0.0 0.0 - 0.1 K/cumm [facility] Lymphocyte abs 5.8(H) 0.8 - 3.3 K/cumm [facility] Monocyte abs 0.2 0.2 - 0.8 K/cumm [facility] Basophil abs 0.1 0.0 - 0.1 K/cumm [facility] Neutrophil pct 42.6 % [facility] Comment: Interpretive Data Percent cell count reference ranges are not reported, since discordance with absolute values may lead to misinterpretation of CBC data. Current Interpretive Data was last revised on 2017. Lymphocyte pct 49.3 % [facility] Comment: Interpretive Data Percent cell count reference ranges are not reported, since discordance with absolute values may lead to misinterpretation of CBC data. Current Interpretive Data was last revised on 2017. Monocyte pct 1.6 % [facility] Comment: Interpretive Data Percent cell count reference ranges are not reported, since discordance with absolute values may lead to misinterpretation of CBC data. Current Interpretive Data was last revised on 2017. Basophil pct 0.8 % [facility] Comment: Interpretive Data Percent cell count reference ranges are not reported, since discordance with absolute values may lead to misinterpretation of CBC data. Current Interpretive Data was last revised on 2017. Variant lymph pct 5.7 % [facility] RBC morphology Normal [facility] Platelet estimate Adequate [facility] Blood 06/15/2024 1:26 AM DIRECTOR VIDEO 06/15/2024 1:39 AM DIRECTOR VIDEO Nasir Lyons MD LAB BLOOD ORDERABLES Mel l Result Performing Organization Address City/[facility]/ZIP Co de Phone Number [facility] [place] [address] * Magnesium (06/15/2024 1:26 AM DIRECTOR VIDEO) Pathologist [facility] Magnesium 1.8 1.4 - 2.5 mg/dL Blood 06/15/2024 1:26 AM DIRECTOR VIDEO 06/15/2024 1:36 AM DIRECTOR VIDEO Nasir Lyons MD LAB BLOOD ORDERABLES Mel l Result [facility] [place] [address] * (ABNORMAL) Hepatic function panel (06/15/2024 1:26 AM DIRECTOR VIDEO) Bilirubin, total 0.6 0.1 - 1.2 mg/dL Bilirubin, direct <0.2 0.1 - 0.3 mg/dL [facility] Protein, pl 6.3(L) 6.5 - 8.5 g/dL [facility] Albumin 4.0 3.5 - 5.0 g/dL [facility] Alk phos 71 40 - 130 Units/L [facility] ALT 11 7 - 45 Units/L [facility] AST 25 10 - 45 Units/L [facility] Blood 06/15/2024 1:26 AM DIRECTOR VIDEO 06/15/2024 1:36 AM DIRECTOR VIDEO us Nasir Lyons MD LAB BLOOD ORDERABLES Mel l Result [facility] Department [place] [address] * (ABNORMAL) Basic metabolic panel (06/15/2024 1:26 AM DIRECTOR VIDEO) Sodium 139 135 - 145 mmol/L Potassium, pl 4.1 3.3 - 4.9 mmol/L [facility] Chloride 107 97 - 110 mmol/L [facility] CO2 22 22 - 32 mmol/L [facility] Anion gap 10 2 - 15 mmol/L [facility] BUN 18 6 - 25 mg/dL [facility] Creatinine 1.94(H) 0.60 - 1.10 mg/dL [facility] Glucose 127 70 - 199 mg/dL [facility] [...] 2022. Calcium 8.9 8.5 - 10.3 mg/dL [facility] Blood 06/15/2024 1:26 AM DIRECTOR VIDEO 06/15/2024 1:36 AM DIRECTOR VIDEO us Nasir Lyons MD LAB BLOOD ORDERABLES Mel l Result [facility] [place] [address] * ECG 12 lead (06/14/2024 8:35 PM DIRECTOR VIDEO) Ventricular Rate EKG/Min 68 BPM [facility] Atrial Rate 68 BPM [facility] ND-Interval (MSEC) 134 ms [facility] QRS-Interval (MSEC) 104 ms [facility] QT-Interval (MSEC) 430 ms [facility] QTc 457 ms [facility] P [place] -28 degrees [facility] R [place] -2 degrees [facility] T [place] 2 degrees [facility] Diagnosis Normal sinus rhythm Normal ECG When compared with ECG of 17-APR-2019 07:30, No significant change was found Confirmed by PIPER WILSON M.D ([id number]) on 06/15/2024 5:17:10 PM [facility] 06/14/2024 8:35 PM DIRECTOR VIDEO 06/15/2024 5:17 PM DIRECTOR VIDEO us Eren Lund MD ECG ORDERABLES Final Result Performing Organization Address [facility] Co de Phone Number [facility] * CT Abdomen Pelvis W Contrast (06/14/2024 2:26 AM DIRECTOR VIDEO) Anatomical Region Laterality Modality Body N/A Computed Tomogra phy 06/14/2024 4:36 AM DIRECTOR VIDEO Impressions 06/14/2024 9:47 AM DIRECTOR VIDEO 1. Slight increase in size of multiple [...] Becky Golden M.D. Narrative 06/14/2024 9:47 AM DIRECTOR VIDEO EXAMINATION: ??Computed tomography of the abdomen and [...] Result * (ABNORMAL) eGFR (06/14/2024 12:23 AM DIRECTOR VIDEO) eGFR 29(L) >=60 mL/min/1. 73 m2 Comment: [...] reviewed 2021. Blood 06/14/2024 12:2 3 AM DIRECTOR VIDEO 06/14/2024 12:35 AM DIRECTOR VIDEO us Kelton Keys MD LAB BLOOD ORDERABLES Final Res ult [facility] [place] [address] * (ABNORMAL) Differential, auto (06/14/2024 12:23 AM DIRECTOR VIDEO) Neutrophil abs 3.8 1.5 - 6.5 K/cumm Imm gran abs 0.0 0.0 - 0.1 K/cumm [facility] Lymphocyte abs 2.4 0.8 - 3.3 K/cumm [facility] Monocyte abs 3.4(H) 0.2 - 0.8 K/cumm [facility] Eosinophil abs 0.0 0.0 - 0.5 K/cumm [facility] Basophil abs 0.0 0.0 - 0.1 K/cumm [facility] Neutrophil pct 39.4 % [facility] Comment: Confirmed by smear review Interpretive Data Percent cell count reference ranges are not reported, since discordance with absolute values may lead to misinterpretation of CBC data. Current Interpretive Data was last revised on 2017. Imm gran pct 0.4 % [facility] Comment: Interpretive Data Percent cell count reference ranges are not reported, since discordance with absolute values may lead to misinterpretation of CBC data. Current Interpretive Data was last revised on 2017. Lymphocyte pct 24.8 % [facility] Comment: Interpretive Data Percent cell count reference ranges are not reported, since discordance with absolute values may lead to misinterpretation of CBC data. Current Interpretive Data was last revised on 2017. Monocyte pct 35.1 % [facility] Comment: Interpretive Data Percent cell count reference ranges are not reported, since discordance with absolute values may lead to misinterpretation of CBC data. Current Interpretive Data was last revised on 2017. Eosinophil pct 0.0 % [facility] Comment: Interpretive Data Percent cell count reference ranges are not reported, since discordance with absolute values may lead to misinterpretation of CBC data. Current Interpretive Data was last revised on 2017. Basophil pct 0.3 % [facility] Comment: Interpretive Data Percent cell count reference ranges are not reported, since discordance with absolute values may lead to misinterpretation of CBC data. Current Interpretive Data was last revised on 2017. Blood 06/14/2024 12:2 3 AM DIRECTOR VIDEO 06/14/2024 12:36 AM DIRECTOR VIDEO us Kelton Keys MD LAB BLOOD ORDERABLES Final Res ult [facility] [place] [address] * (ABNORMAL) Pro B-type natriuretic peptide (06/14/2024 12:23 AM DIRECTOR VIDEO) NT-proBNP 3,993(H) <=450 pg/mL Comment: Interpretive Comments: [...] Date: 2018. Blood 06/14/2024 12:2 3 AM DIRECTOR VIDEO 06/14/2024 12:35 AM DIRECTOR VIDEO us Armida Guajardo MD LAB BLOOD ORDERABLES Final Resul t [facility] [place] [address] * (ABNORMAL) CBC with auto differential (06/14/2024 12:23 AM DIRECTOR VIDEO) WBC 9.8 3.8 - 9.9 K/cumm Hgb 11.6(L) 11.9 - 15.5 g/dL [facility] Hct 36.6 35.6 - 45.5 % [facility] Plt 145(L) 150 - 400 K/cumm [facility] MPV 10.9 9.1 - 12.3 fL [facility] RBC 3.68(L) 3.90 - 5.20 M/cumm [facility] MCV 99.5(H) 81.3 - 96.4 fL [facility] MCH 31.5 27.1 - 33.3 pg [facility] MCHC 31.7(L) 32.3 - 35.7 g/dL [facility] RDW CV 14.7 11.1 - 14.9 % [facility] RDW SD 54.8(H) 35.7 - 48.1 fL [facility] NRBC abs 0.00 0.00 - 0.01 K/cumm [facility] Blood 06/14/2024 12:2 3 AM DIRECTOR VIDEO 06/14/2024 12:36 AM DIRECTOR VIDEO us Kelton Keys MD LAB BLOOD ORDERABLES Final Res ult [facility] [place] [address] * (ABNORMAL) Comprehensive metabolic panel (06/14/2024 12:23 AM DIRECTOR VIDEO) Sodium 139 135 - 145 mmol/L Potassium, pl 4.6 3.3 - 4.9 mmol/L [facility] Chloride 110 97 - 110 mmol/L [facility] CO2 19(L) 22 - 32 mmol/L [facility] Anion gap 10 2 - 15 mmol/L [facility] BUN 16 6 - 25 mg/dL [facility] [facility] Creatinine 1.79(H) 0.60 - 1.10 mg/dL [facility] Glucose 141 70 - 199 mg/dL [facility] Calcium 8.9 8.5 - 10.3 mg/dL [facility] Bilirubin, total 0.4 0.1 - 1.2 mg/dL [facility] Protein, pl 6.4(L) 6.5 - 8.5 g/dL [facility] Albumin 3.9 3.5 - 5.0 g/dL [facility] Alk phos 79 40 - 130 Units/L [facility] ALT 8 7 - 45 Units/L [facility] AST 30 10 - 45 Units/L [facility] Blood 06/14/2024 12:2 3 AM DIRECTOR VIDEO 06/14/2024 12:35 AM DIRECTOR VIDEO Kelton Keys MD LAB BLOOD ORDERABLES Final Res ult Performing Organization Address City/[facility]/ZIP Co de Phone Number JASON BLACK [facility] [place] [address] * (ABNORMAL) Urinalysis reflex to microscopic and culture Urine, clean voided (06/13/2024 6:05 PM DIRECTOR VIDEO) Color, ur Straw Yellow Clarity, ur Clear Clear [facility] Specific gravity, ur 1.015 1.003 - 1.030 [facility] pH, urine 6.0 [facility] Comment: Interpretive Data ? Urine pH is affected by diet, medications, systemic acid-base disturbances, and renal tubular function. ??pH may affect urinary stone formation. ??For example, urine pH below 6.0 may help reduce the tendency for calcium phosphate stones and pH greater than 6.0 may reduce the tendency for uric acid stone formation. Source: [facility] Current Interpretive Data was last revised on 2017 Protein, ur ql 1+(A) Negative [facility] Glucose, ur ql Negative Negative [facility] Ketones, ur Trace Negative [facility] Bilirubin, ur Negative Negative [facility] Blood, ur 1+(A) Negative [facility] Urobilinogen, ur <2.0 <2.0 mg/dL [facility] Nitrite, ur Negative Negative [facility] Leukocyte esterase, ur 1+(A) Negative [facility] UA reflex comment Reflex to microscopic UA will be performed. [facility] Urine, clean voided 06/13/2024 6:05 PM DIRECTOR VIDEO 06/13/2024 6:14 PM DIRECTOR VIDEO us Sharona Gomez NP LAB MICROBIOLOGY - GENERA L ORDERABLES Final Result Performing Organization Address City/[facility]/ZIP Co de Phone Number JASON BLACK [facility] [place] [address] * (ABNORMAL) Urinalysis, microscopic only (06/13/2024 6:05 PM DIRECTOR VIDEO) WBC, ur 6-10(A) 0 - 5 /HPF RBC, ur 3-5(A) 0 - 2 /HPF [facility] Epithelial cells, squamous, ur 1-5 0 - 5 /HPF [facility] Bacteria, ur Trace(A) [facility] Mucous, ur Present(A) [facility] Hyaline casts, ur 1-5 0 - 10 /LPF [facility] Culture Reflex Comment Reflex conditions for urine culture (WBC >10) not met. [facility] Urine, clean voided 06/13/2024 6:05 PM DIRECTOR VIDEO 06/13/2024 6:14 PM DIRECTOR VIDEO Sharona Gomze DISHWASHER LAB URINE ORDERABLES Mel badillo Result [facility] [place] [address] * Respiratory pathogen panel Nasopharyngeal (06/13/2024 4:56 PM DIRECTOR VIDEO) Influenza A RNA Not Detected Not Detected [...] Detected Not Detected [facility] Nasopharyngeal 06/13/2024 4: 56 PM DIRECTOR VIDEO 06/13/2024 5:34 PM DIRECTOR VIDEO Dylan GOMEZ [facility] - 06/13/2024 6:38 PM DIRECTOR VIDEO Is the Patient experiencing symptoms consistent with COVID?->Yes Surveillance testing for transplant patient?->No ??Interpretive Data The [employer] FilmArray Respiratory Panel (RP2.1) assay is a [...] assay has FDA clearance for testing of DISHWASHER swabs. ??The performance of additional specimen types has been assessed by the performing laboratory. ??The performance characteristics of this assay have been determined by [facility] Molecular Infectious Disease Laboratory. Current interpretive data was last revised on 22. us Sharona Gomez NP LAB MICROBIOLOGY - GENERA L ORDERABLES Final Result Performing Organization Address [facility] Co de Phone Number [facility] [place] [address] * POC Blood Gas and Chemistries, Arterial - (06/13/2024 4:53 PM DIRECTOR VIDEO) [facility] Lactate, POC 1.3 0.7 - 2.2 mmol/L Hct, POC 37.0 36.3 - 45.3 % [facility] Total Hb, POC 12.2 11.9 - 15.5 g/dL [facility] Blood 06/13/2024 4:53 PM DIRECTOR VIDEO 06/13/2024 4:53 PM DIRECTOR VIDEO us Eren Lund MD LAB POCT ORDERABLES - DEVICE Final Result Performing Organization Address [facility] [place] [address] * (ABNORMAL) eGFR (06/13/2024 4:30 PM DIRECTOR VIDEO) Pathologist [facility] eGFR 25(L) >=60 mL/min/1. [...] last reviewed 2021. Blood 06/13/2024 4:30 PM DIRECTOR VIDEO 06/13/2024 4:57 PM DIRECTOR VIDEO Sharona Gomez NP LAB BLOOD ORDERABLES Mel l Result Performing Organization Address [facility] Co de Phone Number [facility] [place] [address] * Senior staff review (06/13/2024 4:30 PM DIRECTOR VIDEO) Pathologist [facility] Senior Staff Review Specimen Blood Senior Staff Review Review Done [facility] Comment:Reviewed by senior james salcedo. 06/14/2024 07:47:49 DIRECTOR VIDEO by MATT Blankenship. Blood 06/13/2024 4:30 PM DIRECTOR VIDEO 06/13/2024 5:36 PM DIRECTOR VIDEO Eren Lund MD LAB BLOOD ORDERABLES Final Re sult Performing Organization Address [facility] Co de Phone Number [facility] [place] [address] * (ABNORMAL) CBC with auto differential (06/13/2024 4:30 PM DIRECTOR VIDEO) WBC 10.1(H) 3.8 - 9.9 K/cumm Hgb 12.0 11.9 - 15.5 g/dL [facility] Hct 37.4 35.6 - 45.5 % [facility] Plt 142(L) 150 - 400 K/cumm [facility] MPV 9.7 9.1 - 12.3 fL [facility] RBC 3.78(L) 3.90 - 5.20 M/cumm [facility] MCV 98.9(H) 81.3 - 96.4 fL [facility] MCH 31.7 27.1 - 33.3 pg [facility] MCHC 32.1(L) 32.3 - 35.7 g/dL [facility] RDW CV 14.6 11.1 - 14.9 % [facility] RDW SD 53.0(H) 35.7 - 48.1 fL [facility] NRBC abs 0.00 0.00 - 0.01 K/cumm [facility] Blood 06/13/2024 4:30 PM DIRECTOR VIDEO 06/13/2024 5:36 PM DIRECTOR VIDEO Sharona Gomez DISHWASHER LAB BLOOD ORDERABLES Edit ed Result - Final [facility] [place] [address] * (ABNORMAL) Manual Differential (06/13/2024 4:30 PM DIRECTOR VIDEO) Differential Manual Cells Counted 118 [facility] Neutrophil abs 5.1 1.5 - 6.5 K/cumm [facility] Lymphocyte abs 4.4(H) 0.8 - 3.3 K/cumm [facility] Monocyte abs 0.6 0.2 - 0.8 K/cumm [facility] Neutrophil pct 50.9 % [facility] Comment: Interpretive Data Percent cell count reference ranges are not reported, since discordance with absolute values may lead to misinterpretation of CBC data. Current Interpretive Data was last revised on 2017. Lymphocyte pct 28.8 % [facility] Comment: Interpretive Data Percent cell count reference ranges are not reported, since discordance with absolute values may lead to misinterpretation of CBC data. Current Interpretive Data was last revised on 2017. Monocyte pct 5.9 % [facility] Comment: Interpretive Data Percent cell count reference ranges are not reported, since discordance with absolute values may lead to misinterpretation of CBC data. Current Interpretive Data was last revised on 2017. Variant lymph pct 14.4 % [facility] RBC morphology Present(A) [facility] Anisocytosis Slight(A) [facility] Poikilocytosis Slight(A) [facility] Macrocytes 3-7/HPF(A) [facility] Schistocytes 1-2/HPF(A) [facility] Blood 06/13/2024 4:30 PM DIRECTOR VIDEO 06/13/2024 5:36 PM DIRECTOR VIDEO us Sharona Gomez NP LAB BLOOD ORDERABLES Mel l Result Performing Organization Address [facility] de Phone Number [facility] [place] [address] * Phosphorus (06/13/2024 4:30 PM DIRECTOR VIDEO) Phosphorus, pl 2.7 2.3 - 4.5 mg/dL Blood (Blood, Venous) 06/13/2024 4:30 PM DIRECTOR VIDEO 06/13/2024 4:57 PM DIRECTOR VIDEO Sharona Gomez NP LAB BLOOD ORDERABLES Mel l Result Performing Organization Address [facility] de Phone Number [facility] [place] [address] * Magnesium (06/13/2024 4:30 PM DIRECTOR VIDEO) Magnesium 1.9 1.4 - 2.5 mg/dL Blood (Blood, Venous) 06/13/2024 4:30 PM DIRECTOR VIDEO 06/13/2024 4:57 PM DIRECTOR VIDEO Sharona Gomez NP LAB BLOOD ORDERABLES Mel l Result Performing Organization Address [facility] Co de Phone Number [facility] [place] [address] * (ABNORMAL) Comprehensive metabolic panel (06/13/2024 4:30 PM DIRECTOR VIDEO) Sodium 139 135 - 145 mmol/L Potassium, pl 4.4 3.3 - 4.9 mmol/L [facility] Chloride 107 97 - 110 mmol/L [facility] CO2 22 22 - 32 mmol/L [facility] Anion gap 10 2 - 15 mmol/L [facility] BUN 18 6 - 25 mg/dL [facility] Creatinine 2.03(H) 0.60 - 1.10 mg/dL [facility] Glucose 121 70 - 199 mg/dL [facility] [...] 2022. Calcium 9.8 8.5 - 10.3 mg/dL [facility] Bilirubin, total 0.6 0.1 - 1.2 mg/dL [facility] Protein, pl 6.6 6.5 - 8.5 g/dL [facility] Albumin 4.2 3.5 - 5.0 g/dL [facility] Alk phos 85 40 - 130 Units/L [facility] ALT 14 7 - 45 Units/L [facility] AST 32 10 - 45 Units/L [facility] Blood 06/13/2024 4:30 PM DIRECTOR VIDEO 06/13/2024 4:57 PM DIRECTOR VIDEO us Sharona Gomze NP LAB BLOOD ORDERABLES Mel aby Result [facility] Department [place] [address] * (ABNORMAL) eGFR (06/09/2024 1:27 PM DIRECTOR VIDEO) eGFR 30(L) >=60 mL/min/1. 73 m2 Comment: [...] last reviewed 2021. Blood 06/09/2024 1:27 PM DIRECTOR VIDEO 06/09/2024 1:40 PM DIRECTOR VIDEO us Claude Browning MD LAB BLOOD ORDERABLES Mel badillo Result [facility]ON BLACK [facility] [place] [address] * (ABNORMAL) Chromogranin A (06/09/2024 1:27 PM DIRECTOR VIDEO) Pathologist [facility] Chromogranin A 4537(H) <93 ng/mL [facility] Comment: Impaired renal or hepatic function or treatment with proton pump inhibitors may result in artifactual elevations of Chromogranin A. ADDITIONAL INFORMATION The testing method is a homogeneous time-resolved immunofluorescent assay manufactured by [employer] and performed on the HigherNext Kryptor Compact Plus. ? Values obtained with [...] examination and other findings. Test Performed by: [place] [address] Glass Mold Repairer: Carley Tony Ph.D.; CLIA# [id number] Blood 06/09/2024 1:27 PM DIRECTOR VIDEO 06/09/2024 3:08 PM DIRECTOR VIDEO Eren Lund MD LAB BLOOD ORDERABLES Final Re sult Performing Organization Address [facility] Co de Phone Number [facility] [place] [address] [facility] * (ABNORMAL) Vitamin D 25 hydroxy (06/09/2024 1:27 PM DIRECTOR VIDEO) Vitamin D 25-OH 16(L) 30 - 80 ng/mL Blood 06/09/2024 1:27 PM DIRECTOR VIDEO 06/09/2024 1:40 PM DIRECTOR VIDEO Eren Lund MD LAB BLOOD ORDERABLES Final Re sult Performing Organization Address [facility] Co de Phone Number [facility]REGMINNIE [facility] [place] [address] * Phosphorus (06/09/2024 1:27 PM DIRECTOR VIDEO) Pathologist [facility] Phosphorus, pl 3.1 2.3 - 4.5 mg/dL Blood 06/09/2024 1:27 PM DIRECTOR VIDEO 06/09/2024 1:40 PM DIRECTOR VIDEO us Eren Lund MD LAB BLOOD ORDERABLES Final Re sult [facility] [place] [address] * (ABNORMAL) Lipid panel (06/09/2024 1:27 PM DIRECTOR VIDEO) Pathologist [facility] Cholesterol 135 30 - [...] revised on 2018. Triglycerides 160(H) <=149 mg/dL [facility] Comment: [...] revised on 2018. HDL 39(L) >=40 mg/dL [facility] Comment: Interpretive Data Ages < or [...] 2018. LDL, calculated 68 <=129 mg/dL [facility] Comment: Interpretive Data Ages < or [...] revised on 2024. Non-HDL Cholesterol 96 mg/dL [facility] Comment: Interpretive [...] ratio 3 [facility] Blood 06/09/2024 1:27 PM DIRECTOR VIDEO 06/09/2024 1:40 PM DIRECTOR VIDEO Eren Lund MD LAB BLOOD ORDERABLES Final Re sult [facility] [place] [address] * (ABNORMAL) Comprehensive metabolic panel (06/09/2024 1:27 PM DIRECTOR VIDEO) Sodium 140 135 - 145 mmol/L Potassium, pl 4.1 3.3 - 4.9 mmol/L [facility] Chloride 109 97 - 110 mmol/L [facility] CO2 24 22 - 32 mmol/L [facility] Anion gap 7 2 - 15 mmol/L [facility] BUN 20 6 - 25 mg/dL [facility] Creatinine 1.73(H) 0.60 - 1.10 mg/dL [facility] Glucose 90 70 - 199 mg/dL [facility] [...] 2022. Calcium 9.6 8.5 - 10.3 mg/dL [facility] Bilirubin, total 0.6 0.1 - 1.2 mg/dL [facility] Protein, pl 6.4(L) 6.5 - 8.5 g/dL [facility] Albumin 3.9 3.5 - 5.0 g/dL [facility] Alk phos 79 40 - 130 Units/L [facility] ALT 9 7 - 45 Units/L [facility] AST 28 10 - 45 Units/L [facility] Blood 06/09/2024 1:27 PM DIRECTOR VIDEO 06/09/2024 1:40 PM DIRECTOR VIDEO Claude Browning MD LAB BLOOD ORDERABLES Mel l Result Performing Organization Address City/State/[facility] Co de Phone Number [facility] [place] [address] * (ABNORMAL) eGFR (05/12/2024 10:26 AM DIRECTOR VIDEO) Pathologist [facility] eGFR 38(L) >=60 mL/min/1. [...] reviewed 2021. Blood 05/12/2024 10:2 6 AM DIRECTOR VIDEO 05/12/2024 10:27 AM DIRECTOR VIDEO us Eren Lund MD LAB BLOOD ORDERABLES Final Re sult [facility] [place] [address] * (ABNORMAL) Differential, auto (05/12/2024 10:26 AM DIRECTOR VIDEO) Pathologist [facility] Neutrophil abs 2.5 1.5 - 6.5 K/cumm Comment:Testing performed by : [facility], [address] [place] [id number] Imm gran abs 0.0 0.0 - 0.1 K/cumm [facility] Lymphocyte abs 3.0 0.8 - 3.3 K/cumm [facility] Monocyte abs 2.2(H) 0.2 - 0.8 K/cumm [facility] Eosinophil abs 0.2 0.0 - 0.5 K/cumm [facility] Basophil abs 0.0 0.0 - 0.1 K/cumm [facility] Neutrophil pct 31.2 % [facility] Comment: Interpretive Data Percent cell count reference ranges are not reported, since discordance with absolute values may lead to misinterpretation of CBC data. Current Interpretive Data was last revised on 2017. Imm gran pct 0.3 % [facility] Comment: Interpretive Data Percent cell count reference ranges are not reported, since discordance with absolute values may lead to misinterpretation of CBC data. Current Interpretive Data was last revised on 2017. Lymphocyte pct 37.5 % [facility] Comment: Interpretive Data Percent cell count reference ranges are not reported, since discordance with absolute values may lead to misinterpretation of CBC data. Current Interpretive Data was last revised on 2017. Monocyte pct 28.1 % [facility] Comment: Interpretive Data Percent cell count reference ranges are not reported, since discordance with absolute values may lead to misinterpretation of CBC data. Current Interpretive Data was last revised on 2017. Eosinophil pct 2.5 % [facility] Comment: Interpretive Data Percent cell count reference ranges are not reported, since discordance with absolute values may lead to misinterpretation of CBC data. Current Interpretive Data was last revised on 2017. Basophil pct 0.4 % [facility] Comment: Interpretive Data Percent cell count reference ranges are not reported, since discordance with absolute values may lead to misinterpretation of CBC data. Current Interpretive Data was last revised on 2017. Blood 05/12/2024 10:2 6 AM DIRECTOR VIDEO 05/12/2024 10:27 AM DIRECTOR VIDEO Eren Lund MD LAB BLOOD ORDERABLES Final Re sult [facility] Department of Laboratories [place], [place] [id number] * (ABNORMAL) Chromogranin A (05/12/2024 10:26 AM DIRECTOR VIDEO) Chromogranin A 4282(H) <93 ng/mL [facility] Comment: Impaired renal or hepatic function or treatment with proton pump inhibitors may result in artifactual elevations of Chromogranin A. ADDITIONAL INFORMATION The testing method is a homogeneous time-resolved immunofluorescent assay manufactured by [employer] and performed on the HigherNext KriLumi Solutionsor Compact Plus. ? Values obtained with different [...] examination and other findings. Test Performed by: [place] [address] Glass Mold Repairer: Carley Tony Ph.D.; CLIA# [id number] Blood 05/12/2024 10:2 6 AM DIRECTOR VIDEO 05/12/2024 11:41 AM DIRECTOR VIDEO us Eren Lund MD LAB BLOOD ORDERABLES Final Re sult [facility] [place] [address] [facility] * (ABNORMAL) CBC with auto differential (05/12/2024 10:26 AM DIRECTOR VIDEO) WBC 7.9 3.8 - 9.9 K/cumm Comment:Testing performed by : [facility], [address] [place] [address] Hgb 11.3(L) 11.9 - 15.5 g/dL J[facility]ON BLACK Comment:Testing performed by : [address] [address] Hct 35.5(L) 35.6 - 45.5 % [facility] Comment:Testing performed by : [address] [address] Plt 129(L) 150 - 400 K/cumm [facility] Comment:Testing performed by : [facility], [address] [facility] [address] MPV 9.0(L) 9.1 - 12.3 fL [facility] RBC 3.57(L) 3.90 - 5.20 M/cumm [facility] MCV 99.4(H) 81.3 - 96.4 fL [facility] MCH 31.7 27.1 - 33.3 pg [facility] MCHC 31.8(L) 32.3 - 35.7 g/dL [facility] RDW CV 15.7(H) 11.1 - 14.9 % [facility] RDW SD 57.3(H) 35.7 - 48.1 fL [facility] NRBC abs 0.00 0.00 - 0.01 K/cumm [facility] Blood 05/12/2024 10:2 6 AM DIRECTOR VIDEO 05/12/2024 10:27 AM DIRECTOR VIDEO Eren Lund MD LAB BLOOD ORDERABLES Final Re sult Performing Organization Address City/[facility]/ZIP Co de Phone Number [facility] [place] [address] * (ABNORMAL) Vitamin D 25 hydroxy (05/12/2024 10:26 AM DIRECTOR VIDEO) Pathologist [facility] Vitamin D 25-OH 18(L) 30 - 80 ng/mL Blood 05/12/2024 10:2 6 AM DIRECTOR VIDEO 05/12/2024 11:56 AM DIRECTOR VIDEO Eren Lund MD LAB BLOOD ORDERABLES Final Re sult [facility] [place] [address] * (ABNORMAL) Manual Differential (05/12/2024 10:26 AM DIRECTOR VIDEO) Pathologist [facility] Differential Auto RBC morphology Present(A ) [facility] Anisocytosis Slight(A) [facility] Elliptocytes 3-7/HPF(A ) [facility] Platelet estimate Decreased (A) [facility] Blood 05/12/2024 10:2 6 AM DIRECTOR VIDEO 05/12/2024 10:27 AM DIRECTOR VIDEO Eren Lund MD LAB BLOOD ORDERABLES Final Re sult Performing Organization Address City/[facility]/ZIP Co de Phone Number [facility] [place] [address] * Phosphorus (05/12/2024 10:26 AM DIRECTOR VIDEO) Phosphorus, pl 2.9 2.3 - 4.5 mg/dL Comment:Testing performed by : [address] [address] Blood 05/12/2024 10:2 6 AM DIRECTOR VIDEO 05/12/2024 10:27 AM DIRECTOR VIDEO Eren Lund MD LAB BLOOD ORDERABLES Final Re sult Performing Organization Address [facility] [place] [address] * Magnesium (05/12/2024 10:26 AM DIRECTOR VIDEO) Magnesium 1.5 1.4 - 2.5 mg/dL Comment:Testing performed by : [facility], [address] [place] [address] Blood 05/12/2024 10:2 6 AM DIRECTOR VIDEO 05/12/2024 10:27 AM DIRECTOR VIDEO Eren Lund MD LAB BLOOD ORDERABLES Final Re sult Performing Organization Address City/[facility] Co de Phone Number [facility] [place] [address] * (ABNORMAL) Lipid panel (05/12/2024 10:26 AM DIRECTOR VIDEO) [facility] Cholesterol 128 30 - 199 mg/dL Comment: [...] on 2018. LDL, calculated 67 <=129 mg/dL [facility] Comment: [...] on 2024. Non-HDL Cholesterol 91 mg/dL [facility] Comment: Interpretive Data Ages < or [...] ratio 3 [facility] Blood 05/12/2024 10:2 6 AM DIRECTOR VIDEO 05/12/2024 11:56 AM DIRECTOR VIDEO us Eren Lund MD LAB BLOOD ORDERABLES Final Re sult [facility] [place] [address] * (ABNORMAL) Comprehensive metabolic panel (05/12/2024 10:26 AM DIRECTOR VIDEO) [facility] Sodium 139 135 - 145 mmol/L Comment:Testing performed by : [facility], [address] [place] [address] Potassium, pl 4.3 3.3 - 4.9 mmol/L [facility] Chloride 109 97 - 110 mmol/L [facility] CO2 22 22 - 32 mmol/L [facility] Anion gap 8 2 - 15 mmol/L [facility] BUN 20 6 - 25 mg/dL [facility] Creatinine 1.44(H) 0.60 - 1.10 mg/dL [facility] Glucose 89 70 - 199 mg/dL [facility] [...] CERNER BJ Blood 05/12/2024 10:2 6 AM DIRECTOR VIDEO 05/12/2024 10:27 AM DIRECTOR VIDEO us Eren Lund MD LAB BLOOD ORDERABLES Final Re sult [facility] [place] [address] * CT chest abdomen pelvis with contrast [...] last revised 2018. Creatinine Ur 178.7 mg/dL [facility] Comment: Interpretive Data No reference range established. Current interpretive data was last revised 2018. Protein/creatinin e ratio 141.0 0.0 - 180.0 mg/g CR [facility] Urine 04/14/2024 10:4 0 AM CDT 04/14/2024 11:52 AM CDT Eren Lund MD LAB URINE ORDERABLES Final Re sult [facility] [place] [address] * (ABNORMAL) eGFR (04/14/2024 10:35 AM CDT) [...] LAB BLOOD ORDERABLES Final Re sult [facility] Department [place] [address] * (ABNORMAL) Differential, auto (04/14/2024 10:35 AM CDT) Neutrophil abs 2.7 1.5 - 6.5 K/cumm Comment:Testing performed by : [facility], [address] [address] Imm gran abs 0.0 0.0 - 0.1 [...] 2017. Imm gran pct 0.3 % [facility] Comment: Interpretive Data Percent cell count reference ranges are not reported, since discordance with absolute values may lead to misinterpretation of CBC data. Current Interpretive Data was last revised on 2017. Lymphocyte pct 39.4 % [facility] Comment: Interpretive Data Percent cell count reference ranges are not reported, since discordance with absolute values may lead to misinterpretation of CBC data. Current Interpretive Data was last revised on 2017. Monocyte pct 18.5 % [facility] Comment: Interpretive Data Percent cell count reference ranges are not reported, since discordance with absolute values may lead to misinterpretation of CBC data. Current Interpretive Data was last revised on 2017. Eosinophil pct 2.8 % [facility] Comment: Interpretive Data Percent cell count reference ranges are not reported, since discordance with absolute values may lead to misinterpretation of CBC data. Current Interpretive Data was last revised on 2017. Basophil pct 0.3 % [facility] Comment: Interpretive Data Percent cell count reference ranges are not reported, since discordance with absolute values may lead to misinterpretation of CBC data. Current Interpretive Data was last revised on 2017. Blood 04/14/2024 10:3 5 AM CDT 04/14/2024 10:35 AM CDT Eren Lund MD LAB BLOOD ORDERABLES Final Re sult [facility] [place] [address] * (ABNORMAL) Chromogranin A (04/14/2024 10:35 AM CDT) Chromogranin A 2929(H) <93 ng/mL [facility] Comment: Impaired renal or hepatic function or treatment with proton pump inhibitors may result in artifactual elevations of Chromogranin A. ADDITIONAL INFORMATION The testing method is a homogeneous time-resolved immunofluorescent assay manufactured by [employer] and performed on the [employer] Compact Plus. ? Values obtained with different [...] examination and other findings. Test Performed by: [place] [address] Glass Mold Repairer: Calrey Tony Ph.D.; CLIA# [id number] Blood 04/14/2024 10:3 5 AM CDT 04/14/2024 11:52 AM CDT us Eren Lund MD LAB BLOOD ORDERABLES Final Re amanuel [facility] [place] [address] [facility] * (ABNORMAL) CBC with auto differential (04/14/2024 10:35 AM CDT) WBC 6.8 3.8 - 9.9 K/cumm Comment:Testing performed by : [facility], [address] [place] [address] Hgb 10.8(L) 11.9 - 15.5 g/dL [facility] Comment:Testing performed by : [address] [address] Hct 33.5(L) 35.6 - 45.5 % [facility] Comment:Testing performed by : [facility], [address] [place] [address] Plt 117(L) 150 - 400 K/cumm [facility] Comment:Testing performed by : [address] [address] MPV 9.9 9.1 - 12.3 fL [facility] RBC 3.42(L) 3.90 - 5.20 M/cumm [facility] MCV 98.0(H) 81.3 - 96.4 fL [facility] MCH 31.6 27.1 - 33.3 pg [facility] MCHC 32.2(L) 32.3 - 35.7 g/dL [facility] RDW CV 16.4(H) 11.1 - 14.9 % [facility] RDW SD 58.2(H) 35.7 - 48.1 fL [facility] NRBC abs 0.00 0.00 - 0.01 K/cumm [facility] Blood 04/14/2024 10:3 5 AM CDT 04/14/2024 10:35 AM CDT us Eren Lund MD LAB BLOOD ORDERABLES Final Re sult [facility] [place] [address] * (ABNORMAL) Vitamin D 25 hydroxy (04/14/2024 10:35 AM CDT) Pathologist [facility] Vitamin D 25-OH 19(L) 30 - 80 ng/mL Blood 04/14/2024 10:3 5 AM CDT 04/14/2024 11:52 AM CDT us Eren Lund MD LAB BLOOD ORDERABLES Final Re sult [facility] [place] [address] * (ABNORMAL) Manual Differential (04/14/2024 10:35 AM CDT) Differential Auto Neutrophil abs 2.7 1.5 - 6.5 K/cumm [facility] Comment:Testing performed by : [facility], [address] [place] [address] Imm gran abs 0.0 0.0 - 0.1 K/cumm [facility] Lymphocyte abs 2.7 0.8 - 3.3 K/cumm [facility] Monocyte abs 1.3(H) 0.2 - 0.8 K/cumm [facility] Eosinophil abs 0.2 0.0 - 0.5 K/cumm [facility] Basophil abs 0.0 0.0 - 0.1 K/cumm [facility] Neutrophil pct 38.7 % [facility] Comment: Interpretive Data Percent cell count reference ranges are not reported, since discordance with absolute values may lead to misinterpretation of CBC data. Current Interpretive Data was last revised on 2017. Imm gran pct 0.3 % [facility] Comment: Interpretive Data Percent cell count reference ranges are not reported, since discordance with absolute values may lead to misinterpretation of CBC data. Current Interpretive Data was last revised on 2017. Lymphocyte pct 39.4 % [facility] Comment: Interpretive Data Percent cell count reference ranges are not reported, since discordance with absolute values may lead to misinterpretation of CBC data. Current Interpretive Data was last revised on 2017. Monocyte pct 18.5 % [facility] Comment: Interpretive Data Percent cell count reference ranges are not reported, since discordance with absolute values may lead to misinterpretation of CBC data. Current Interpretive Data was last revised on 2017. Eosinophil pct 2.8 % [facility] Comment: Interpretive Data Percent cell count reference ranges are not reported, since discordance with absolute values may lead to misinterpretation of CBC data. Current Interpretive Data was last revised on 2017. Basophil pct 0.3 % [facility] Comment: Interpretive Data Percent cell count reference ranges are not reported, since discordance with absolute values may lead to misinterpretation of CBC data. Current Interpretive Data was last revised on 2017. RBC morphology Present(A ) [facility] Anisocytosis Slight(A) [facility] Elliptocytes 3-7/HPF(A ) [facility] Platelet estimate Decreased (A) [facility] Blood 04/14/2024 10:3 5 AM CDT 04/14/2024 10:35 AM CDT Eren Lund MD LAB BLOOD ORDERABLES Final Re sult Performing Organization Address [facility] Co de Phone Number [facility] [place] [address] * (ABNORMAL) Phosphorus (04/14/2024 10:35 AM CDT) Phosphorus, pl 1.9(L) 2.3 - 4.5 mg/dL Comment:Testing performed by : [address] [address] Blood 04/14/2024 10:3 5 AM CDT 04/14/2024 10:35 AM CDT Eren Lund MD LAB BLOOD ORDERABLES Final Re sult Performing Organization Address [facility] Co de Phone Number [facility] [place] [address] * (ABNORMAL) Phosphorus (04/14/2024 10:35 AM CDT) Phosphorus, pl 2.0(L) 2.3 - 4.5 mg/dL Comment:Testing performed by : [facility], [address] [place] [address] Blood 04/14/2024 10:3 5 AM CDT 04/14/2024 10:35 AM CDT Eren Lund MD LAB BLOOD ORDERABLES Final Re sult Performing Organization Address [facility] Co de Phone Number [facility] Department [place] [address] * Magnesium (04/14/2024 10:35 AM CDT) Magnesium 1.5 1.4 - 2.5 mg/dL Comment:Testing performed by : [address] [address] Blood 04/14/2024 10:3 5 AM CDT 04/14/2024 10:35 AM CDT Eren Lund MD LAB BLOOD ORDERABLES Final Re sult Performing Organization Address [facility] de Phone Number [facility] Department [place] [address] * Lipid panel (04/14/2024 10:35 AM CDT) [...] on 2018. Triglycerides 130 <=149 mg/dL [facility] Comment: Interpretive Data Ages < or [...] revised on 2018. HDL 40 >=40 mg/dL [facility] Comment: Interpretive Data Ages < or [...] 2018. LDL, calculated 62 <=129 mg/dL [facility] Comment: Interpretive Data Ages < or [...] on 2024. Non-HDL Cholesterol 85 mg/dL [facility] Comment: Interpretive Data Ages < or [...] last revised on 2018. Chol/HDL ratio 3 [facility] Blood 04/14/2024 10:3 5 AM CDT 04/14/2024 11:52 AM CDT us Eren Lund MD LAB BLOOD ORDERABLES Final Re sult [facility] Department [place] [address] * (ABNORMAL) Comprehensive metabolic panel (04/14/2024 10:35 AM CDT) Sodium 140 135 - 145 mmol/L Comment:Testing performed by : [facility], [address] [place] [address] Potassium, pl 4.6 3.3 - 4.9 mmol/L [facility] Chloride 111(H) 97 - 110 mmol/L [facility] CO2 24 22 - 32 mmol/L [facility] Anion gap 5 2 - 15 mmol/L [facility] BUN 16 6 - 25 mg/dL [facility] Creatinine 1.46(H) 0.60 - 1.10 mg/dL [facility] Glucose 96 70 - 199 mg/dL [facility] [...] 2022. Calcium 9.5 8.5 - 10.3 mg/dL [facility] Bilirubin, total 0.4 0.1 - 1.2 mg/dL [facility] Protein, pl 5.9(L) 6.5 - 8.5 g/dL [facility] Albumin 3.8 3.5 - 5.0 g/dL [facility] Alk phos 57 40 - 130 Units/L [facility] ALT 18 7 - 45 Units/L [facility] AST 32 10 - 45 Units/L [facility] Blood 04/14/2024 10:3 5 AM CDT 04/14/2024 10:35 AM CDT us Eren Lund MD LAB BLOOD ORDERABLES Final Re sult [facility] [place] [address] * Screening Mammogram Bilateral W Seng (06/13/2023 2:01 PM DIRECTOR VIDEO) Anatomical Region Laterality Modality Breast Bilateral Mammography Narrative 06/14/2023 12:40 PM DIRECTOR VIDEO Mammogram Technique: Bilateral Digital Breast Tomosynthesis, Bilateral C-view 2D Screening mammogram. ??Views obtained: ??bilateral craniocaudal and bilateral mediolateral oblique. ??Computer Aided Detection was performed. Mammogram Findings: The present examination has been compared to prior imaging studies performed at [facility] on 12/21/2019, 01/23/2021 and [...] to prior imaging studies performed at [facility] on 12/21/2019, 01/23/2021 and [...] on 19. Hep C Ab Nonreactive Nonreactive [facility] Comment:Antibodies to HCV no t detected. Does NOT exclude the possibility of recent exposure to HCV. HepBsAg Nonreactive Nonreactive [facility] Blood specimen (specimen) 01/02/2021 2:05 PM CDT 01/02/2021 2:37 PM CDT us Eren Lund MD LAB MICROBIOLOGY - GENERAL OR DERABLES Edited Result - Final [facility] [place] [address] * Dexa Axial Skeleton Bone Density 1 or 2 Site (03/10/2020 9:58 AM CDT) Anatomical Region Laterality Modality Body N/A Radiographic Gabbie ging Narrative 03/12/2020 2:39 PM CDT Patient Name: La Chung Date of : 1950 Date of scan: 03/10/2020 Bone mineral density was performed on a [employer] Discovery Densitometer. ?? Machine Cross-calibration and Precision [...] by the International Society of Clinical Densitometry. [id number] Oksana ClineClark Rivas DISHWASHER IMG DXA PROCEDURES Final Result from Last 3 Months or Most Recently Relevant to Health Maintenance Insurance MEDICARE [facility] MEDICARE [facility] [place] [address] MEDICARE [facility] MEDICARE [facility] Advance Directives For more information, please contact: [phone] * Full Code (Latest Code Status on [...] 12:16 PM 09/14/2021 8:10 PM Care Teams Living Skills Advisor Relationship Specialty Start Date End Date Julio César Briseno MD PCP - General 10/01/16 Eren Lund MD Referring Physician Medical Oncology 11/25/18 Yohana Bowen MD Radiation Oncologist Radiation Oncology 11/25/18 Alejo Mi MD [address] [address] Referring Physician Nephrology 03/07/23
--- OUTSIDE RECORDS SUMMARY | 2024-06-26 01:50 | XMS_ITS ---
Author Organization [facility] Address [address] [place] [address] Care Team Providers Care [place] Tanner Name Role Phone Julio César Briseno MD Primary Care Provider [phone] Eren Cr MD Unavailable [phone] Yohana Bowen MD Unavailable Alejo Mi MD Unavailable [phone] Active Problems Problem Noted Date Diagnosed Date Exertional dyspnea 06/17/2024 Assessment & Plan (06/18/2024 10:44 AM THEATRE MANAGER): Reports noting increased exertional dyspnea over last year or so. Nt-probnp elevated on admission - TTE with grade 1 diastolic dysfunction, thickened LV but otherwise normal systolic function EF 66% and normal valvular function ANNE-MARIE (acute kidney injury) (H CC) and Mild right hydroureteronephrosis 06/14/2024 Assessment & Plan (06/20/2024 11:38 PM THEATRE MANAGER): Cr b/l is 1.3-1.5. It is 2 [...] 06/14/2024 Assessment & Plan (06/17/2024 3:29 PM THEATRE MANAGER): Likely related to ANNE-MARIE and R ureteral process. -Improved and tolerating oral intake -PPI IV BID->oral BID for now. -Nausea control. Pain control. HTN (hypertension) 06/14/2024 Assessment & Plan (06/20/2024 11:37 PM THEATRE MANAGER): Home amlodipine. Losartan held throughout admission due to ANNE-MARIE and blood pressure reasonably controlled on amlodipine. Can consider restarting outpatient if uptrend noted Anxiety 06/14/2024 Assessment & Plan (06/14/2024 3:48 PM THEATRE MANAGER): She reports taking duloxetine 30 daily for over a year. 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 Received denosumab 03/30 120mg SQ. Ca on presentation to [facility] 8.2; following surgical procedure, Ca acutely [...] 03/30 120mg SQ. Ca on presentation to [facility] 8.2; following surgical procedure, Ca acutely [...] 03/30 120mg SQ. Ca on presentation to [facility] 8.2; following surgical procedure, Ca acutely [...] 03/30 120mg SQ. Ca on presentation to [facility] 8.2; following surgical procedure, Ca acutely [...] 10/03/2015 Assessment & Plan (06/19/2024 9:47 PM THEATRE MANAGER): Of the ileum, w/ mets to the [...] Treatment Medications Discontinue Reason Plan Provider Cycles [id number] - [facility] - GI - [id number] - Open label Cabozantinib 07/03/2005/12/2024 [facility] cabozantinib (/A0 [id number])[facility] cabozantinib/pl acebo (A0 ) Progression Eren Cr [...]
--- OUTSIDE RECORDS SUMMARY | 2024-06-26 01:50 | XMS_ITS | Referral Summary ---
Author Organization [facility], formerly [facility] Address [address] [place] [address] Care Team Providers Care Registered Nurse Hh Case Manager Name Role Phone Julio César Briseno MD Primary Care Provider [phone] Eren Lund MD Unavailable [phone] Yohana Bowen MD Unavailable Alejo Mi MD Unavailable [phone] Encounters Date Type Department Care Team Description 06/23/2024 Telephone [facility] Radiology 1 [place] [address] Dorota Rogers RN 06/23/2024 Orders Only [facility] Nephrology [facility] Advanced Medicine 5th [place] [address] [place] [address] Alejo Mi MD Stage 3b chronic kidney disease (HCC) (Primary Dx); Hypomagnesemia; Benign essential hypertension; Acute cystitis with hematuria; Anemia, unspecified type; Elevated PTHrP level 06/22/2024 Orders Only [facility] Oncology [address] [place] [phone] Eren Lund MD Neuroendocrine carcinoma (HCC) (Primary Dx); Malignant neoplasm metastatic to liver (HCC) 06/22/2024 Telephone [facility] Oncology [address] [place] [phone] Eren Lund MD exchange call/ER follow up 06/22/2024 Telephone [facility] Radiology 1 [place] [address] oDrota Rogers, [place] 06/21/2024 Telephone [facility] Oncology [address] [place] [address] Shaniqua Lawrence RN 06/13/2024 10:27 PM WIRE PRODUCTS INSPECTOR - 06/20/2024 1:30 PM WIRE PRODUCTS INSPECTOR Hospital Encounter [address] [address] Stu Huang MD Tan, Benjamin R., MD Ma, MD Juan Huffman Amrat, MD Pirzada, Dana Henry MD ANNE-MARIE (acute kidney injury) (HCC) (Primary Dx); 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; History of malignant neuroendocrine tumor; 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) Discharge Disposition: Discharge to home or self care 06/17/2024 Orders Only [facility] Oncology [address] [facility] 5 [place] [address] Claude Browning MD 06/17/2024 Orders Only [facility] Radiology 1 [place] [address] Dorota Rogers, [place] 06/16/2024 3:00 PM WIRE PRODUCTS INSPECTOR Anesthesia Event [facility] Operating Room 1 [place] [address] Elissa Rosales MD Jaffer, Danish, MD 06/16/2024 Telephone [facility] Radiology 1 [place] [address] Juice Garcia, [place] 06/16/2024 2:37 PM WIRE PRODUCTS INSPECTOR - 06/16/2024 3:52 PM WIRE PRODUCTS INSPECTOR Surgery [facility] Operating Room 1 [place] [address] Mela Dejesus MD CYSTOSCOPY 06/13/2024 4:24 PM WIRE PRODUCTS INSPECTOR - 06/13/2024 11:59 PM WIRE PRODUCTS INSPECTOR Hospital Encounter [facility] [place] [address] Dehydration (Primary Dx); Nausea; Hypertension, unspecified type Discharge Disposition: Discharge to home or self care 06/13/2024 Telephone [facility] Bone Marrow Transplant [facility] Floor 6 [place] [address] Sunshine George RN Vomiting 06/12/2024 Orders Only [facility] Oncology [address] [place] [address] Floor 5 [place] [phone] Claude Browning MD 06/11/2024 Telephone [facility] Radiology 1 [place] [address] Dorota Rogers RN 06/10/2024 Orders Only [facility] Oncology [address] [place] [phone] Eren Lund MD Neuroendocrine carcinoma (HCC) (Primary Dx); Malignant neoplasm metastatic to liver (HCC) 06/09/2024 1:15 PM WIRE PRODUCTS INSPECTOR Clinical Support [facility] - Lab Collection [facility] Floor 5 [place] [address] Neuroendocrine carcinoma (HCC); Malignant neoplasm metastatic to liver (HCC) 06/09/2024 Orders Only [facility] Oncology [address] [place] [address] Floor 5 [place] [phone] Claude Browning MD Neuroendocrine carcinoma (HCC) (Primary Dx) 06/09/2024 2:15 PM WIRE PRODUCTS INSPECTOR Infusion 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) 06/09/2024 11:00 AM WIRE PRODUCTS INSPECTOR Office Visit [facility] Oncology [address] [place] [address] Floor 5 [place] [phone] Claude Browning MD Neuroendocrine carcinoma (HCC) (Primary Dx); Malignant neoplasm metastatic to liver (HCC) 06/08/2024 Telephone [facility] Radiology 1 [place] [address] Dorota Rogers, RN 05/29/2024 Telephone [facility] Oncology [address] [facility] Floor 5 [place] [phone] Renay Renee, [place] 05/29/2024 10:45 AM WIRE PRODUCTS INSPECTOR Office Visit [facility] Dermatology [address] [facility] [address] [place] [phone] Po Newberry MD PhD Actinic keratosis (Primary Dx); Purpura (HCC); Family history of melanoma; Seborrheic keratosis; Multiple benign nevi; Milia 05/26/2024 Telephone [facility] - Infusion Pharmacy [address] [facility] Floor 6 [place] [address] Callie Yousif CPhT 05/26/2024 9:00 AM WIRE PRODUCTS INSPECTOR Consult [facility] Radiation Oncology at [facility] [address] [place] [phone] Yohana Bowen MD Neuro-endocrine carcinoma (HCC); Malignant neoplasm metastatic to liver (HCC); 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) 05/22/2024 Orders Only [facility] Oncology [address] [place] [phone] Eren Lund MD Neuroendocrine carcinoma (HCC) (Primary Dx); Malignant neoplasm metastatic to liver (HCC) 05/21/2024 9:00 AM WIRE PRODUCTS INSPECTOR Office Visit [facility] Radiology, Interventional Radiology [address] [facility] [address] [place] [address] Mikey Meraz MD Stage 3b chronic kidney disease (HCC) (Primary Dx); Neuro-endocrine carcinoma (HCC); Malignant neoplasm metastatic to liver (HCC); 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); 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); Anemia due to stage 3a chronic kidney disease (HCC) 05/15/2024 Telephone [facility] Radiation Oncology at [facility] [address] [place] [phone] Yohana Bowen MD 05/14/2024 Documentation [facility] - Infusion Pharmacy [address] [facility] Floor 6 [place] [address] Idania Pat CMA CABOMETYX PA 05/13/2024 Orders Only [facility] Oncology [address] [place] [phone] Eren Lund MD Neuro-endocrine carcinoma (HCC) (Primary Dx) 05/13/2024 Orders Only [address] [phone] Eren Lund MD 05/13/2024 Orders Only [facility] Oncology [address] [place] [phone] Eren Lund MD 05/13/2024 Orders Only [facility] Oncology [address] [place] [phone] Eren Lund MD Neuroendocrine carcinoma (HCC) (Primary Dx); Malignant neoplasm metastatic to liver (HCC) 05/13/2024 Orders Only [facility] Oncology [address] [place] [phone] Eren Lund MD 05/13/2024 Telephone [facility] Radiology [address] [place] [address] Dorota Rogers, RN 05/13/2024 Telephone [facility] Radiology 1 [place] [address] Dorota Rogers, RN 05/13/2024 Orders Only [address] [phone] Yoana Murray [facility] 05/12/2024 Orders Only [facility] Oncology [address] [place] [phone] Eren Lund MD 05/12/2024 Orders Only [facility] Oncology [address] [place] [phone] Eren Lund MD 05/12/2024 11:45 AM WIRE PRODUCTS INSPECTOR Infusion [address] [phone] 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 Dx); Neuroendocrine carcinoma (HCC); Neuro-endocrine carcinoma (HCC); 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) 05/12/2024 10:00 AM WIRE PRODUCTS INSPECTOR Clinical Support [address] [address] Neuro-endocrine carcinoma (HCC); Neuroendocrine carcinoma (HCC); Malignant neoplasm metastatic to liver (HCC); Research study patient 05/12/2024 10:45 AM WIRE PRODUCTS INSPECTOR Office Visit [facility] Oncology [address] [place] [phone] Eren Lund MD Neuro-endocrine carcinoma (HCC) (Primary Dx); Malignant neoplasm metastatic to liver (HCC); 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) 05/08/2024 Orders Only [facility] Oncology [address] [place] [phone] Eren Lund MD Research study patient (Primary Dx) 05/06/2024 8:06 AM CDT - 05/06/2024 11:59 PM CDT Hospital Encounter [facility] Rad[facility] [address] [place] [phone] Eren Lund MD Neuroendocrine carcinoma (HCC) Discharge Disposition: Discharge to home or self care 04/30/2024 Orders Only [facility] Health Information Management 1 [place] [address] Scanning, Provider 04/14/2024 Orders Only [facility] Oncology [address] [facility] 5 [place] [address] Hien Jaimes, [facility] 04/14/2024 12:15 PM CDT Research Med Pick-Up/CTRU [facility] [address] [address] Neuro-endocrine carcinoma (HCC) (Primary Dx) 04/14/2024 11:45 AM CDT Infusion [address] [address] 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 Dx); Neuroendocrine carcinoma (HCC) 04/14/2024 10:00 AM CDT Clinical Support [address] [address] Neuro-endocrine carcinoma (HCC); Neuroendocrine carcinoma (HCC); Malignant neoplasm metastatic to liver (HCC) 04/14/2024 10:45 AM CDT Office Visit [facility] Oncology [address] [place] [phone] Eren Lund MD Neuroendocrine carcinoma (HCC) (Primary Dx); Neuro-endocrine carcinoma (HCC); Malignant neoplasm metastatic to liver (HCC); Neuroendocrine carcinoma (CMS/HCC) (HCC) 04/03/2024 Orders Only [facility] Oncology [address] [place] [phone] Eren Lund MD Neuroendocrine carcinoma (HCC) (Primary Dx) from Last 3 Months Allergies Active Allergy Reactions Criticality Noted Date Comments Ezetimibe-Simvastatin Muscle pain,Other (See comments),Unknown Medium 01/11/2012 Muscle weakness Morphine Blisters,Rash High 11/20/2020 Ramipril Cough Low 12/30/2017 Medications simvastatin (ZOCOR) 20 mg tablet Take 1 tablet (20 mg total) by mouth nightly Active ostomy supplies [facility] Patient has colostomy and needs Cavilon 3M [...] 1 tablet (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) by mouth speech teacher before breakfast 90 tablet 3 11/28/19 24 [...] ions:supplemen t Take 1 tablet by mouth speech teacher before breakfast 07/04/20 16 Discontinued(S top Taking at Discharge) coenzyme [id number] 100-5 mg-unit capsuleIndicat ions:supplemen t Take 1 tablet by mouth speech teacher before breakfast Discontinued(S top Taking at Discharge) [...] at Discharge) 0.9 % sodium chloride ([facility] sodium chloride 0.9%) injectionIndic ations:line care [...] (ATROVENT) 42 mcg (0.06 %) nasal spray [place] 1 spray twice a day by nasal route for 13 days. 04/28/20 24 024 Discontinued Active Problems Problem Noted Date Diagnosed Date Exertional dyspnea 06/17/2024 Assessment & Plan (06/18/2024 10:44 AM WIRE PRODUCTS INSPECTOR): Reports noting increased exertional dyspnea over last year or so. Nt-probnp elevated on admission - TTE with grade 1 diastolic dysfunction, thickened LV but otherwise normal systolic function EF 66% and normal valvular function ANNE-MARIE (acute kidney injury) (H CC) and Mild right hydroureteronephrosis 06/14/2024 Assessment & Plan (06/20/2024 11:38 PM WIRE PRODUCTS INSPECTOR): Cr b/l is 1.3-1.5. It is [...] 06/14/2024 Assessment & Plan (06/17/2024 3:29 PM WIRE PRODUCTS INSPECTOR): Likely related to ANNE-MARIE and R ureteral process. -Improved and tolerating oral intake -PPI IV BID->oral BID for now. -Nausea control. Pain control. HTN (hypertension) 06/14/2024 Assessment & Plan (06/20/2024 11:37 PM WIRE PRODUCTS INSPECTOR): Home amlodipine. Losartan held throughout admission due to ANNE-MARIE and blood pressure reasonably controlled on amlodipine. Can consider restarting outpatient if uptrend noted Anxiety 06/14/2024 Assessment & Plan (06/14/2024 3:48 PM WIRE PRODUCTS INSPECTOR): She reports taking duloxetine 30 daily for over a year. 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 Received denosumab 03/30 120mg SQ. Ca on presentation to [facility] 8.2; following surgical procedure, Ca acutely [...] 03/30 120mg SQ. Ca on presentation to [facility] 8.2; following surgical procedure, Ca acutely [...] 03/30 120mg SQ. Ca on presentation to [facility] 8.2; following surgical procedure, Ca acutely [...] 03/30 120mg SQ. Ca on presentation to [facility] 8.2; following surgical procedure, Ca acutely [...] 10/03/2015 Assessment & Plan (06/19/2024 9:47 PM WIRE PRODUCTS INSPECTOR): Of the ileum, w/ mets to [...] materials from doctor or pharmacy Never 11/07/2022 [facility] Utilities Answer Date Recorded In the past 12 months has th e [employer], gas, oil, or water company threatened to [...] any time in the past 12 m [facility], were you homeless or living in a custodial (including now)? No 06/20/2024 Personal Safety Answer Date Recorded Have you ever been in or are you currently in a harmful physical or emotional relationship or is someone making you feel afraid or unsafe? Denies 06/16/2024 Comments No Sex and Gender Information Value Date Recorded Sex Assigned at Not on file Legal Sex Female 2:41 PM WIRE PRODUCTS INSPECTOR Gender Identity Not on file Sexual Orientation Straight 02/19/2021 9: 29 AM CDT Occupation Industry Job Start Date Job End Date retired Not on file Not on file Not on file Last Filed Vital Signs Vital Sign Reading Time Taken Comments Blood Pressure 139/45 06/20/2024 8:14 AM WIRE PRODUCTS INSPECTOR Pulse 95 06/20/2024 8:14 AM WIRE PRODUCTS INSPECTOR Temperature 36.4 ??C (97.6 ??F) 06/20/2024 7:25 AM CS T Respiratory Rate 16 06/20/2024 7:25 AM WIRE PRODUCTS INSPECTOR Oxygen Saturation 95% 06/20/2024 7:25 AM WIRE PRODUCTS INSPECTOR Inhaled Oxygen Concentration - - Weight 72.6 kg (160 lb) 06/19/2024 9:30 PM WIRE PRODUCTS INSPECTOR Height 160 cm (5' 3 ) 06/19/2024 7:33 AM WIRE PRODUCTS INSPECTOR Body Mass Index 28.34 06/19/2024 7:33 AM WIRE PRODUCTS INSPECTOR Plan of Treatment Not on file Medical Devices Implanted Type Area Program Counselor Device Identifier Shelf Expiration Date Model / Serial / Lot Left Knee Replacement Other - see comments Left: Knee Description:Left knee replac ement [employer] [id number] 6fr 26cm 145cm Radiopaque Positioner Filiform Flexible Tip - Sna - [id number] Implanted:Qty: 1 on 06/16/2024 by Mela Dejesus MD at [facility] Stent Right: Ureter [employer] [id number] 02/03/2027 [id number] / [id number] / [id number] [employer] Port 8fr [id number] - [id number] Implanted:Qty: 1 on 09/14/2021 at [facility] [employer] 04/18/2026 [id number] / / [id number] [employer] [place] [employer] [place] Angio-Seal Vip 6fr Closere Device [id number] - [id number] Implanted:Qty: 1 on 06/19/2024 by Mikey Meraz MD at [facility] [employer] [place] [employer] [place] 11/18/2024 [id number] / / [id number] Procedures Procedure Name Priority Date/Time Associated Diagnosis Comments EGFR Routine 06/20/2024 12:59 AM WIRE PRODUCTS INSPECTOR DIFFERENTIAL AUTO Routine 06/20/2024 12:59 AM WIRE PRODUCTS INSPECTOR MAGNESIUM Routine 06/20/2024 12:59 AM WIRE PRODUCTS INSPECTOR HEPATIC FUNCTION PANEL Routine 06/20/2024 12:59 AM WIRE PRODUCTS INSPECTOR CBC WITH AUTO DIFFERENTIAL Routine 06/20/2024 12:59 AM WIRE PRODUCTS INSPECTOR BASIC METABOLIC PANEL Routine 06/20/2024 12:59 AM WIRE PRODUCTS INSPECTOR EMBOLIZATION ORGAN ISCHEMIA OR INFARCTION Schedule Routine, Read Routine (OP Routine) 06/19/2024 11:17 AM WIRE PRODUCTS INSPECTOR 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) BIOPSY LIVER Schedule Routine, Read Routine (OP Routine) 06/19/2024 9:00 AM WIRE PRODUCTS INSPECTOR 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) SURGICAL PATHOLOGY Routine 06/19/2024 8: 53 AM WIRE PRODUCTS INSPECTOR ANNE-MARIE (acute kidney injury) (HCC) 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 History of malignant neuroendocrine tumor 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) EGFR Routine 06/19/2024 1:56 AM WIRE PRODUCTS INSPECTOR DIFFERENTIAL AUTO Routine 06/19/2024 1:5 6 AM WIRE PRODUCTS INSPECTOR MAGNESIUM Routine 06/19/2024 1:56 AM WIRE PRODUCTS INSPECTOR HEPATIC FUNCTION PANEL Routine 06/19/2024 1:56 AM WIRE PRODUCTS INSPECTOR CBC WITH AUTO DIFFERENTIAL Routine 06/19/2024 1:56 AM WIRE PRODUCTS INSPECTOR BASIC METABOLIC PANEL Routine 06/19/2024 1:56 AM WIRE PRODUCTS INSPECTOR US KIDNEY COMPLETE IP Routine 06/18/2024 3: 53 PM WIRE PRODUCTS INSPECTOR XR ABDOMEN AP 1 VIEW IP Routine 06/18/2024 5:54 AM WIRE PRODUCTS INSPECTOR MANUAL DIFFERENTIAL Routine 06/18/2024 1 :37 AM WIRE PRODUCTS INSPECTOR EGFR Routine 06/18/2024 1:37 AM WIRE PRODUCTS INSPECTOR MAGNESIUM Routine 06/18/2024 1:37 AM WIRE PRODUCTS INSPECTOR HEPATIC FUNCTION PANEL Routine 06/18/2024 1:37 AM WIRE PRODUCTS INSPECTOR CBC WITH AUTO DIFFERENTIAL Routine 06/18/2024 1:37 AM WIRE PRODUCTS INSPECTOR BASIC METABOLIC PANEL Routine 06/18/2024 1:37 AM WIRE PRODUCTS INSPECTOR TRANSTHORACIC ECHO (TTE) COMPLETE W DOPPLER/CF W CONTRAST Routine 06/17/2024 4:25 PM WIRE PRODUCTS INSPECTOR MANUAL DIFFERENTIAL Routine 06/17/2024 1 :25 AM WIRE PRODUCTS INSPECTOR EGFR Routine 06/17/2024 1:25 AM WIRE PRODUCTS INSPECTOR MAGNESIUM Routine 06/17/2024 1:25 AM WIRE PRODUCTS INSPECTOR HEPATIC FUNCTION PANEL Routine 06/17/2024 1:25 AM WIRE PRODUCTS INSPECTOR CBC WITH AUTO DIFFERENTIAL Routine 06/17/2024 1:25 AM WIRE PRODUCTS INSPECTOR BASIC METABOLIC PANEL Routine 06/17/2024 1:25 AM WIRE PRODUCTS INSPECTOR FL FLUOROSCOPY < 1 HOUR IP Routine 06/16/2024 3:37 PM WIRE PRODUCTS INSPECTOR GA AN PROCEDURE PLACEHOLDER Routine 06/16/2024 3:30 PM WIRE PRODUCTS INSPECTOR GA AN ELECTIVE SUPRAGLOTTIC AIRWAY Routine 06/16/2024 3:30 PM WIRE PRODUCTS INSPECTOR PYELOGRAM - RETROGRADE 06/16/2024 3:03 PM WIRE PRODUCTS INSPECTOR ANNE-MARIE (acute kidney injury) (HCC) 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 PLACEMENT STENT - URETERAL 06/16/2024 3:03 PM WIRE PRODUCTS INSPECTOR ANNE-MARIE (acute kidney injury) (HCC) 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 CYSTOSCOPY 06/16/2024 3:03 PM WIRE PRODUCTS INSPECTOR ANNE-MARIE (acute kidney injury) (HCC) 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 MANUAL DIFFERENTIAL Routine 06/16/2024 12:50 AM WIRE PRODUCTS INSPECTOR EGFR Routine 06/16/2024 12:50 AM WIRE PRODUCTS INSPECTOR MAGNESIUM Routine 06/16/2024 12:50 AM WIRE PRODUCTS INSPECTOR HEPATIC FUNCTION PANEL Routine 06/16/2024 12:50 AM WIRE PRODUCTS INSPECTOR CBC WITH AUTO DIFFERENTIAL Routine 06/16/2024 12:50 AM WIRE PRODUCTS INSPECTOR BASIC METABOLIC PANEL Routine 06/16/2024 12:50 AM WIRE PRODUCTS INSPECTOR MANUAL DIFFERENTIAL Routine 06/15/2024 1 :26 AM WIRE PRODUCTS INSPECTOR EGFR Routine 06/15/2024 1:26 AM WIRE PRODUCTS INSPECTOR MAGNESIUM Routine 06/15/2024 1:26 AM WIRE PRODUCTS INSPECTOR HEPATIC FUNCTION PANEL Routine 06/15/2024 1:26 AM WIRE PRODUCTS INSPECTOR CBC WITH AUTO DIFFERENTIAL Routine 06/15/2024 1:26 AM WIRE PRODUCTS INSPECTOR BASIC METABOLIC PANEL Routine 06/15/2024 1:26 AM WIRE PRODUCTS INSPECTOR ECG 12-LEAD Routine 06/14/2024 8:35 [address] ABDOMEN PELVIS W CONTRAST ED 06/14/2024 2:26 AM WIRE PRODUCTS INSPECTOR PRO B-TYPE NATRIURETIC PEPTIDE STAT 06/14/2024 12:23 AM WIRE PRODUCTS INSPECTOR EGFR STAT 06/14/2024 12:23 AM WIRE PRODUCTS INSPECTOR DIFFERENTIAL AUTO STAT 06/14/2024 12:23 AM WIRE PRODUCTS INSPECTOR COMPREHENSIVE METABOLIC PANEL STAT 06/14/2024 12:23 AM WIRE PRODUCTS INSPECTOR CBC WITH AUTO DIFFERENTIAL STAT 06/14/2024 12:23 AM WIRE PRODUCTS INSPECTOR URINALYSIS, MICROSCOPIC ONLY STAT 06/13/2024 6:05 PM WIRE PRODUCTS INSPECTOR URINALYSIS AND REFLEX TO MICROSCOPIC AND CULTURE STAT 06/13/2024 6:05 PM WIRE PRODUCTS INSPECTOR RESPIRATORY PATHOGEN PANEL STAT 06/13/2024 4:56 PM WIRE PRODUCTS INSPECTOR POC BLOOD GAS AND CHEMISTRIES, ARTERIAL Routine 06/13/2024 4:53 PM WIRE PRODUCTS INSPECTOR MANUAL DIFFERENTIAL STAT 06/13/2024 4 :30 PM WIRE PRODUCTS INSPECTOR SENIOR STAFF REVIEW STAT 06/13/2024 4 :30 PM WIRE PRODUCTS INSPECTOR EGFR STAT 06/13/2024 4:30 PM WIRE PRODUCTS INSPECTOR PHOSPHORUS STAT 06/13/2024 4:30 PM WIRE PRODUCTS INSPECTOR MAGNESIUM STAT 06/13/2024 4:30 PM WIRE PRODUCTS INSPECTOR COMPREHENSIVE METABOLIC PANEL STAT 06/13/2024 4:30 PM WIRE PRODUCTS INSPECTOR CBC WITH AUTO DIFFERENTIAL STAT 06/13/2024 4:30 PM WIRE PRODUCTS INSPECTOR EGFR Routine 06/09/2024 1:27 PM WIRE PRODUCTS INSPECTOR Neuroendocrine carcinoma (HCC) COMPREHENSIVE METABOLIC PANEL Routine 06/09/2024 1:27 PM WIRE PRODUCTS INSPECTOR Neuroendocrine carcinoma (HCC) LIPID PANEL Routine 06/09/2024 1:27 PM WIRE PRODUCTS INSPECTOR Neuroendocrine carcinoma (HCC) Malignant neoplasm metastatic to liver (HCC) PHOSPHORUS Routine 06/09/2024 1:27 PM WIRE PRODUCTS INSPECTOR Neuroendocrine carcinoma (HCC) Malignant neoplasm metastatic to liver (HCC) VITAMIN D 25 HYDROXY Routine 06/09/2024 1:27 PM WIRE PRODUCTS INSPECTOR Neuroendocrine carcinoma (HCC) Malignant neoplasm metastatic to liver (HCC) CHROMOGRANIN A Routine 06/09/2024 1:27 PM WIRE PRODUCTS INSPECTOR Neuroendocrine carcinoma (HCC) Malignant neoplasm metastatic to liver (HCC) MANUAL DIFFERENTIAL STAT 05/12/2024 10:26 AM WIRE PRODUCTS INSPECTOR Neuro-endocrine carcinoma (HCC) EGFR STAT 05/12/2024 10:26 AM WIRE PRODUCTS INSPECTOR Neuro-endocrine carcinoma (HCC) DIFFERENTIAL AUTO STAT 05/12/2024 10:26 AM WIRE PRODUCTS INSPECTOR Neuro-endocrine carcinoma (HCC) CBC WITH AUTO DIFFERENTIAL STAT 05/12/2024 10:26 AM WIRE PRODUCTS INSPECTOR Neuro-endocrine carcinoma (HCC) COMPREHENSIVE METABOLIC PANEL STAT 05/12/2024 10:26 AM WIRE PRODUCTS INSPECTOR Neuro-endocrine carcinoma (HCC) MAGNESIUM STAT 05/12/2024 10:26 AM WIRE PRODUCTS INSPECTOR Neuro-endocrine carcinoma (HCC) LIPID PANEL Routine 05/12/2024 10:26 AM WIRE PRODUCTS INSPECTOR Neuroendocrine carcinoma (HCC) Malignant neoplasm metastatic to liver (HCC) PHOSPHORUS Routine 05/12/2024 10:26 AM WIRE PRODUCTS INSPECTOR Neuroendocrine carcinoma (HCC) Malignant neoplasm metastatic to liver (HCC) VITAMIN D 25 HYDROXY Routine 05/12/2024 10:26 AM WIRE PRODUCTS INSPECTOR Neuroendocrine carcinoma (HCC) Malignant neoplasm metastatic to liver (HCC) CHROMOGRANIN A Routine 05/12/2024 10:26 AM WIRE PRODUCTS INSPECTOR Neuroendocrine carcinoma (HCC) Malignant neoplasm metastatic [...] Read Routine (OP Routine) 06/13/2023 2:01 PM WIRE PRODUCTS INSPECTOR Screening mammogram, encounter for HEPATITIS PANEL, ACUTE Routine 01/02/2021 2:05 PM CDT Neuro-endocrine carcinoma (CMS/HCC) DEXA AXIAL SKELETON BONE DENSITY 1 OR MORE SITES Schedule Routine, Read Routine (OP Routine) 03/10/2020 9:58 AM CDT Abnormal bone density screening from Last 3 Months or Most Recently Relevant to Health Maintenance Results * (ABNORMAL) eGFR (06/20/2024 12:59 AM WIRE PRODUCTS INSPECTOR) eGFR 38(L) >=60 mL/min/1. 73 m2 [...] reviewed 2021. Blood 06/20/2024 12:5 9 AM WIRE PRODUCTS INSPECTOR 06/20/2024 1:19 AM WIRE PRODUCTS INSPECTOR us Nasir Lyons MD LAB BLOOD ORDERABLES Mel badillo Result [facility] [place] [address] * (ABNORMAL) Differential, auto (06/20/2024 12:59 AM WIRE PRODUCTS INSPECTOR) Neutrophil abs 5.8 1.5 - 6.5 K/cumm Imm gran abs 0.1 0.0 - 0.1 K/cumm [facility] Lymphocyte abs 2.3 0.8 - 3.3 K/cumm [facility] Monocyte abs 2.7(H) 0.2 - 0.8 K/cumm [facility] Eosinophil abs 0.0 0.0 - 0.5 K/cumm [facility] Basophil abs 0.0 0.0 - 0.1 K/cumm [facility] Neutrophil pct 52.9 % [facility] Comment: Consistent with previous result Interpretive Data Percent cell count reference ranges are not reported, since discordance with absolute values may lead to misinterpretation of CBC data. Current Interpretive Data was last revised on 2017. Imm gran pct 0.5 % [facility] Comment: Interpretive Data Percent cell count reference ranges are not reported, since discordance with absolute values may lead to misinterpretation of CBC data. Current Interpretive Data was last revised on 2017. Lymphocyte pct 21.0 % [facility] Comment: Interpretive Data Percent cell count reference ranges are not reported, since discordance with absolute values may lead to misinterpretation of CBC data. Current Interpretive Data was last revised on 2017. Monocyte pct 24.9 % [facility] Comment: Interpretive Data Percent cell count reference ranges are not reported, since discordance with absolute values may lead to misinterpretation of CBC data. Current Interpretive Data was last revised on 2017. Eosinophil pct 0.3 % [facility] Comment: Interpretive Data Percent cell count reference ranges are not reported, since discordance with absolute values may lead to misinterpretation of CBC data. Current Interpretive Data was last revised on 2017. Basophil pct 0.4 % [facility] Comment: Interpretive Data Percent cell count reference ranges are not reported, since discordance with absolute values may lead to misinterpretation of CBC data. Current Interpretive Data was last revised on 2017. Blood 06/20/2024 12:5 9 AM WIRE PRODUCTS INSPECTOR 06/20/2024 1:20 AM WIRE PRODUCTS INSPECTOR us Nasir Lyons MD LAB BLOOD ORDERABLES Mel badillo Result [facility] [place] [address] * (ABNORMAL) CBC with auto differential (06/20/2024 12:59 AM WIRE PRODUCTS INSPECTOR) WBC 11.0(H) 3.8 - 9.9 K/cumm Hgb 10.8(L) 11.9 - 15.5 g/dL [facility] Hct 33.7(L) 35.6 - 45.5 % [facility] Plt 133(L) 150 - 400 K/cumm [facility] MPV 10.2 9.1 - 12.3 fL [facility] RBC 3.45(L) 3.90 - 5.20 M/cumm [facility] MCV 97.7(H) 81.3 - 96.4 fL [facility] MCH 31.3 27.1 - 33.3 pg [facility] MCHC 32.0(L) 32.3 - 35.7 g/dL [facility] RDW CV 14.6 11.1 - 14.9 % [facility] RDW SD 52.6(H) 35.7 - 48.1 fL [facility] NRBC abs 0.00 0.00 - 0.01 K/cumm [facility] Blood 06/20/2024 12:5 9 AM WIRE PRODUCTS INSPECTOR 06/20/2024 1:20 AM WIRE PRODUCTS INSPECTOR Nasir Lyons MD LAB BLOOD ORDERABLES Mel l Result Performing Organization Address [facility] de Phone Number [facility] [place] [address] * Magnesium (06/20/2024 12:59 AM WIRE PRODUCTS INSPECTOR) Pathologist [facility] Magnesium 1.4 1.4 - 2.5 mg/dL Blood 06/20/2024 12:5 9 AM WIRE PRODUCTS INSPECTOR 06/20/2024 1:19 AM WIRE PRODUCTS INSPECTOR Result [facility] Nasir Lyons MD LAB BLOOD ORDERABLES Mel l Result Performing Organization Address [facility] Phone Number [facility] [place] [address] * (ABNORMAL) Hepatic function panel (06/20/2024 12:59 AM WIRE PRODUCTS INSPECTOR) Bilirubin, total 0.6 0.1 - 1.2 mg/dL Bilirubin, direct <0.2 0.1 - 0.3 mg/dL [facility] Protein, pl 6.2(L) 6.5 - 8.5 g/dL [facility] Albumin 3.8 3.5 - 5.0 g/dL [facility] Alk phos 85 40 - 130 Units/L [facility] ALT 164(H) 7 - 45 Units/L [facility] Comment:Reviewed AST 433(H) 10 - 45 Units/L [facility] Comment:Reviewed Blood 06/20/2024 12:5 9 AM WIRE PRODUCTS INSPECTOR 06/20/2024 1:19 AM WIRE PRODUCTS INSPECTOR Result [facility] Nasir Lyons MD LAB BLOOD ORDERABLES Mel l Result Performing Organization Address [facility] de Phone Number [facility] Department [place] [address] * (ABNORMAL) Basic metabolic panel (06/20/2024 12:59 AM WIRE PRODUCTS INSPECTOR) Sodium 138 135 - 145 mmol/L Potassium, pl 3.5 3.3 - 4.9 mmol/L [facility] Chloride 105 97 - 110 mmol/L [facility] CO2 25 22 - 32 mmol/L [facility] Anion gap 8 2 - 15 mmol/L [facility] BUN 12 6 - 25 mg/dL [facility] Creatinine 1.44(H) 0.60 - 1.10 mg/dL [facility] Glucose 123 70 - 199 mg/dL [facility] Comment: Interpretive Data Fasting glucose [...] 2022. Calcium 8.1(L) 8.5 - 10.3 mg/dL [facility] Blood 06/20/2024 12:5 9 AM WIRE PRODUCTS INSPECTOR 06/20/2024 1:19 AM WIRE PRODUCTS INSPECTOR us Nasir Lyons MD LAB BLOOD ORDERABLES Mel badillo Result [facility] [place] [address] * IR Embolization Tumor Organ Ischemia or Infarction (06/19/2024 11:17 AM WIRE PRODUCTS INSPECTOR) Anatomical Region Laterality Modality Body N/A X-Ray Angiograph y 06/19/2024 4:13 PM WIRE PRODUCTS INSPECTOR Impressions 06/19/2024 4:15 PM WIRE PRODUCTS INSPECTOR Successful diagnostic angiography and chemo-embolization of the right posterior liver using 25 mg doxorubicin and Ethiodol and Gelfoam. PLAN: Interventional radiology will coordinate outpatient follow-up. Dictated by: Dar Willett M.D. The radiology attending physician has personally reviewed this study, and had reviewed and/or edited this written report and agrees with it. Electronically signed by: Mikey Meraz M.D. Narrative 06/19/2024 4:15 PM WIRE PRODUCTS INSPECTOR EXAMINATION: ??DIAGNOSTIC VISCERAL ANGIOGRAPHY AND TRANSARTERIAL [...] was obtained. Prior to beginning the procedure, [place] Protocol was performed to confirm the patient's [...] the patent vessel was recorded. A 6 Haitian sheath was placed and connected to a heparinized saline drip. Using fluoroscopic guidance, the following arteries were catheterized and selective diagnostic angiograms were performed: Common hepatic artery with Nancy CT Posterior division of the right hepatic artery (3rd order) The equipment used for catheterization was 5 Haitian LEV catheter and a Glidewire. ??The equipment used for selective catheterization was 2.7-Haitian Progreat catheter and a fathom wire. The [...] was obtained. Prior to beginning the procedure, Upper [place] Protocol was performed to confirm the patient's [...] the patent vessel was recorded. A 6 Haitian sheath was placed and connected to a heparinized saline drip. Using fluoroscopic guidance, the following arteries were catheterized and selective diagnostic angiograms were performed: Common hepatic artery with Nancy CT Posterior division of the right hepatic artery (3rd order) The equipment used for catheterization was 5 Haitian LEV catheter and a Glidewire. The equipment used for selective catheterization was 2.7-Haitian Progreat catheter and a fathom wire. The [...] * IR Biopsy Liver (06/19/2024 9:00 AM WIRE PRODUCTS INSPECTOR) Anatomical Region Laterality Modality Body N/A Computed Tomogra phy 06/19/2024 4:01 PM WIRE PRODUCTS INSPECTOR Impressions 06/19/2024 4:10 PM WIRE PRODUCTS INSPECTOR Successful image-guided core biopsy of a segment IVb hepatic lesion. PLAN: Patient will proceed to the interventional radiology area for chemoembolization. Dictated by: Dar Willett M.D. The radiology attending physician has personally reviewed this study, and had reviewed and/or edited this written report and agrees with it. Electronically signed by: Mikey Meraz M.D. Narrative 06/19/2024 4:10 PM WIRE PRODUCTS INSPECTOR EXAMINATION: IMAGE-GUIDED BIOPSY OF LIVER HISTORY/INDICATION: [...] was obtained. Prior to beginning the procedure, Upper Jay Protocol was performed to confirm the patient's [...] was obtained. Prior to beginning the procedure, Upper [place] Protocol was performed to confirm the patient's [...] Result * Surgical pathology (06/19/2024 8:53 AM WIRE PRODUCTS INSPECTOR) Tissue (Soft tissue biopsy) 06/19/2024 8:53 AM WIRE PRODUCTS INSPECTOR Narrative PATHOLOGY [facility] - 06/23/2024 3:41 PM WIRE PRODUCTS INSPECTOR EPIC results best viewed via link to PDF [facility] [place] [address] Note to Patients: This report may contain [...] Gender: ??F : ??1950 (Age: 73) Address: ??[facility] [place] ??[address] Hospital #: ??[id number] Taken:06/19/2024 Received:06/19/2024 Reported: 06/23/2024 Patient Type: [facility] Inpatient ?? Service: Oncology Location: [facility] ??[address] Physician(s): ??MD Julio César Serrato M.D. Diagnosis: [...] Surgical Pathology and Flow Cytometry Departments at [facility] as part of an ongoing quality tester program and in compliance with federally mandated [...] Surgical Pathology and Flow Cytometry Departments of [facility]. ??It has not been cleared or approved by the U. S. Food and Drug Administration. IMAGES AND SCANNED DOCUMENTS, IF INCLUDED, ONLY VIEWABLE IN PDF VERSION OF REPORT Dana Cancino MD LAB PATHOLOGY ORDERABLES Fin al Result PATHOLOGY [facility] 3rd Floor [place], [place] [phone] * (ABNORMAL) eGFR (06/19/2024 1:56 AM WIRE PRODUCTS INSPECTOR) eGFR 37(L) >=60 mL/min/1. 73 m2 [...] last reviewed 2021. Blood 06/19/2024 1:56 AM WIRE PRODUCTS INSPECTOR 06/19/2024 2:31 AM WIRE PRODUCTS INSPECTOR us Nasir Lyons MD LAB BLOOD ORDERABLES Mel badillo Result [facility] [place] [address] * (ABNORMAL) Differential, auto (06/19/2024 1:56 AM WIRE PRODUCTS INSPECTOR) Neutrophil abs 2.1 1.5 - 6.5 K/cumm Imm gran abs 0.0 0.0 - 0.1 K/cumm [facility] Lymphocyte abs 2.7 0.8 - 3.3 K/cumm [facility] Monocyte abs 4.0(H) 0.2 - 0.8 K/cumm [facility] Eosinophil abs 0.1 0.0 - 0.5 K/cumm [facility] Basophil abs 0.0 0.0 - 0.1 K/cumm [facility] Neutrophil pct 23.5 % [facility] Comment: Confirmed by smear review Interpretive Data Percent cell count reference ranges are not reported, since discordance with absolute values may lead to misinterpretation of CBC data. Current Interpretive Data was last revised on 2017. Imm gran pct 0.3 % [facility] Comment: Interpretive Data Percent cell count reference ranges are not reported, since discordance with absolute values may lead to misinterpretation of CBC data. Current Interpretive Data was last revised on 2017. Lymphocyte pct 30.2 % [facility] Comment: Interpretive Data Percent cell count reference ranges are not reported, since discordance with absolute values may lead to misinterpretation of CBC data. Current Interpretive Data was last revised on 2017. Monocyte pct 44.4 % [facility] Comment: Interpretive Data Percent cell count reference ranges are not reported, since discordance with absolute values may lead to misinterpretation of CBC data. Current Interpretive Data was last revised on 2017. Eosinophil pct 1.3 % [facility] Comment: Interpretive Data Percent cell count reference ranges are not reported, since discordance with absolute values may lead to misinterpretation of CBC data. Current Interpretive Data was last revised on 2017. Basophil pct 0.3 % [facility] Comment: Interpretive Data Percent cell count reference ranges are not reported, since discordance with absolute values may lead to misinterpretation of CBC data. Current Interpretive Data was last revised on 2017. Blood 06/19/2024 1:56 AM WIRE PRODUCTS INSPECTOR 06/19/2024 2:32 AM WIRE PRODUCTS INSPECTOR us Nasir Lyons MD LAB BLOOD ORDERABLES Mel badillo Result [facility] [place] [address] * (ABNORMAL) CBC with auto differential (06/19/2024 1:56 AM WIRE PRODUCTS INSPECTOR) WBC 9.1 3.8 - 9.9 K/cumm Hgb 10.1(L) 11.9 - 15.5 g/dL [facility] Hct 31.7(L) 35.6 - 45.5 % [facility] Plt 148(L) 150 - 400 K/cumm [facility] MPV 10.9 9.1 - 12.3 fL [facility] RBC 3.24(L) 3.90 - 5.20 M/cumm [facility] MCV 97.8(H) 81.3 - 96.4 fL [facility] MCH 31.2 27.1 - 33.3 pg [facility] MCHC 31.9(L) 32.3 - 35.7 g/dL [facility] RDW CV 14.3 11.1 - 14.9 % [facility] RDW SD 51.9(H) 35.7 - 48.1 fL [facility] NRBC abs 0.00 0.00 - 0.01 K/cumm [facility] Blood 06/19/2024 1:56 AM WIRE PRODUCTS INSPECTOR 06/19/2024 2:32 AM WIRE PRODUCTS INSPECTOR Nasir Lyons MD LAB BLOOD ORDERABLES Mel l Result Performing Organization Address City/[facility] Co de Phone Number [facility] [employer] [place] [place] [address] * Magnesium (06/19/2024 1:56 AM WIRE PRODUCTS INSPECTOR) Pathologist [facility] Magnesium 1.6 1.4 - 2.5 mg/dL Blood 06/19/2024 1:56 AM WIRE PRODUCTS INSPECTOR 06/19/2024 2:31 AM WIRE PRODUCTS INSPECTOR Nasir Lyons MD LAB BLOOD ORDERABLES Mel l Result Performing Organization Address [facility] [place] [address] * (ABNORMAL) Hepatic function panel (06/19/2024 1:56 AM WIRE PRODUCTS INSPECTOR) Pathologist [facility] Bilirubin, total 0.4 0.1 - 1.2 mg/dL Bilirubin, direct <0.2 0.1 - 0.3 mg/dL [facility] Protein, pl 5.9(L) 6.5 - 8.5 g/dL [facility] Albumin 3.5 3.5 - 5.0 g/dL [facility] Alk phos 61 40 - 130 Units/L [facility] ALT 5(L) 7 - 45 Units/L [facility] AST 21 10 - 45 Units/L [facility] Blood 06/19/2024 1:56 AM WIRE PRODUCTS INSPECTOR 06/19/2024 2:31 AM WIRE PRODUCTS INSPECTOR Nasir Lyons MD LAB BLOOD ORDERABLES Mel l Result Performing Organization Address [facility] Co de Phone Number [facility] [employer] [place] [address] * (ABNORMAL) Basic metabolic panel (06/19/2024 1:56 AM WIRE PRODUCTS INSPECTOR) Sodium 141 135 - 145 mmol/L Potassium, pl 3.8 3.3 - 4.9 mmol/L [facility] Chloride 107 97 - 110 mmol/L [facility] CO2 24 22 - 32 mmol/L [facility] Anion gap 10 2 - 15 mmol/L [facility] BUN 14 6 - 25 mg/dL [facility] Creatinine 1.48(H) 0.60 - 1.10 mg/dL [facility] Glucose 121 70 - 199 mg/dL [facility] Comment: Interpretive Data Fasting glucose [...] 2022. Calcium 8.4(L) 8.5 - 10.3 mg/dL [facility] Blood 06/19/2024 1:56 AM WIRE PRODUCTS INSPECTOR 06/19/2024 2:31 AM WIRE PRODUCTS INSPECTOR us Nasir Lyons MD LAB BLOOD ORDERABLES Mel badillo Result [facility] [place] [address] * US Kidney Complete (06/18/2024 3:53 PM WIRE PRODUCTS INSPECTOR) Anatomical Region Laterality Modality Kidney N/A Ultrasound 06/18/2024 3:55 PM WIRE PRODUCTS INSPECTOR Impressions 06/18/2024 4:09 PM WIRE PRODUCTS INSPECTOR 1. ??No hydronephrosis. ??Previously described right-sided hydronephrosis has resolved. 2. ??Normal renal echogenicity. Dictated by: Greyson Anthony M.D. The radiology attending physician has personally reviewed this study, and had reviewed and/or edited this written report and agrees with it. Electronically signed by: Immanuel Bennett M.D. Narrative 06/18/2024 4:09 PM WIRE PRODUCTS INSPECTOR EXAMINATION: COMPLETE RENAL SONOGRAM HISTORY: ??Metastatic [...] Abdomen Ap 1 Vw (06/18/2024 5:54 AM WIRE PRODUCTS INSPECTOR) Anatomical Region Laterality Modality Body, Abdomen N/A Computed Radiogr aphy 06/18/2024 11:3 4 AM WIRE PRODUCTS INSPECTOR Impressions 06/18/2024 11:44 AM WIRE PRODUCTS INSPECTOR A single view of the abdomen [...] Brock Malik M.D. Narrative 06/18/2024 11:44 AM WIRE PRODUCTS INSPECTOR EXAMINATION: Abdomen, one view. HISTORY: Check [...] lt * (ABNORMAL) eGFR (06/18/2024 1:37 AM WIRE PRODUCTS INSPECTOR) [facility] eGFR 33(L) >=60 mL/min/1. 73 [...] last reviewed 2021. Blood 06/18/2024 1:37 AM WIRE PRODUCTS INSPECTOR 06/18/2024 2:11 AM WIRE PRODUCTS INSPECTOR us Nasir Lyons MD LAB BLOOD ORDERABLES Mel badillo Result [facility] [place] [address] * (ABNORMAL) CBC with auto differential (06/18/2024 1:37 AM WIRE PRODUCTS INSPECTOR) Pathologist [facility] WBC 9.0 3.8 - 9.9 K/cumm Hgb 10.2(L) 11.9 - 15.5 g/dL [facility] Hct 32.0(L) 35.6 - 45.5 % [facility] Plt 155 150 - 400 K/cumm [facility] MPV 10.4 9.1 - 12.3 fL [facility] RBC 3.28(L) 3.90 - 5.20 M/cumm [facility] MCV 97.6(H) 81.3 - 96.4 fL [facility] MCH 31.1 27.1 - 33.3 pg [facility] MCHC 31.9(L) 32.3 - 35.7 g/dL [facility] RDW CV 14.6 11.1 - 14.9 % [facility] RDW SD 52.8(H) 35.7 - 48.1 fL [facility] NRBC abs 0.00 0.00 - 0.01 K/cumm [facility] Blood 06/18/2024 1:37 AM WIRE PRODUCTS INSPECTOR 06/18/2024 2:13 AM WIRE PRODUCTS INSPECTOR us Nasir Lyons MD LAB BLOOD ORDERABLES Mel badillo Result [facility] [place] [address] * (ABNORMAL) Manual Differential (06/18/2024 1:37 AM WIRE PRODUCTS INSPECTOR) Differential Manual Cells Counted 114 [facility] Neutrophil abs 3.2 1.5 - 6.5 K/cumm [facility] Imm gran abs 0.0 0.0 - 0.1 K/cumm [facility] Lymphocyte abs 4.8(H) 0.8 - 3.3 K/cumm [facility] Monocyte abs 1.0(H) 0.2 - 0.8 K/cumm [facility] Neutrophil pct 36.0 % [facility] Comment: Interpretive Data Percent cell count reference ranges are not reported, since discordance with absolute values may lead to misinterpretation of CBC data. Current Interpretive Data was last revised on 2017. Lymphocyte pct 53.5 % [facility] Comment: Interpretive Data Percent cell count reference ranges are not reported, since discordance with absolute values may lead to misinterpretation of CBC data. Current Interpretive Data was last revised on 2017. Monocyte pct 10.5 % [facility] Comment: Interpretive Data Percent cell count reference ranges are not reported, since discordance with absolute values may lead to misinterpretation of CBC data. Current Interpretive Data was last revised on 2017. Blood 06/18/2024 1:37 AM WIRE PRODUCTS INSPECTOR 06/18/2024 2:16 AM WIRE PRODUCTS INSPECTOR Nasir Lyons MD LAB BLOOD ORDERABLES Mel l Result Performing Organization Address City/[facility] Co de Phone Number [facility] [employer] [place] [address] * Magnesium (06/18/2024 1:37 AM WIRE PRODUCTS INSPECTOR) Pathologist [facility] Magnesium 1.6 1.4 - 2.5 mg/dL Blood 06/18/2024 1:37 AM WIRE PRODUCTS INSPECTOR 06/18/2024 2:11 AM WIRE PRODUCTS INSPECTOR Result [facility] Nasir Lyons MD LAB BLOOD ORDERABLES Mel l Result Performing Organization Address [facility] de Phone Number [facility] [employer] [place] [address] * (ABNORMAL) Hepatic function panel (06/18/2024 1:37 AM WIRE PRODUCTS INSPECTOR) Bilirubin, total 0.5 0.1 - 1.2 mg/dL Bilirubin, direct <0.2 0.1 - 0.3 mg/dL [facility] Protein, pl 6.0(L) 6.5 - 8.5 g/dL [facility] Albumin 3.7 3.5 - 5.0 g/dL [facility] Alk phos 62 40 - 130 Units/L [facility] ALT 11 7 - 45 Units/L [facility] AST 24 10 - 45 Units/L [facility] Blood 06/18/2024 1:37 AM WIRE PRODUCTS INSPECTOR 06/18/2024 2:11 AM WIRE PRODUCTS INSPECTOR Result [facility] Nasir Lyons MD LAB BLOOD ORDERABLES Mel l Result Performing Organization Address [facility] Co de Phone Number [facility] [employer] [place] [place] [address] * (ABNORMAL) Basic metabolic panel (06/18/2024 1:37 AM WIRE PRODUCTS INSPECTOR) Pathologist [facility] Sodium 141 135 - 145 mmol/L Potassium, pl 3.2(L) 3.3 - 4.9 mmol/L [facility] Chloride 107 97 - 110 mmol/L [facility] CO2 26 22 - 32 mmol/L [facility] Anion gap 8 2 - 15 mmol/L [facility] BUN 14 6 - 25 mg/dL [facility] Creatinine 1.62(H) 0.60 - 1.10 mg/dL [facility] Glucose 95 70 - 199 mg/dL [facility] Comment: Interpretive Data Fasting glucose [...] 2022. Calcium 8.1(L) 8.5 - 10.3 mg/dL [facility] Blood 06/18/2024 1:37 AM WIRE PRODUCTS INSPECTOR 06/18/2024 2:11 AM WIRE PRODUCTS INSPECTOR us Nasir Lyons MD LAB BLOOD ORDERABLES Mel l Result [facility] [place] [address] * TRANSTHORACIC ECHO (TTE) COMPLETE W DOPPLER/CF W CONTRAST (06/17/2024 4:25 PM WIRE PRODUCTS INSPECTOR) Pathologist [facility] LV EF 66 % CARDIOREPORT Anatomical Region Laterality Modality Ultrasound 06/17/2024 3:00 PM WIRE PRODUCTS INSPECTOR Narrative 06/17/2024 5:02 PM WIRE PRODUCTS INSPECTOR Patient name: La Chung Date of test: 06/17/2024 Type of test: TTE w/[facility] #: [id number] Date of : 1950 (F) [employer] Electric Train Repairer: MICHAEL Blankenship Referring Physician: DANA CANCINO MD Contrast Agent: 1.1 ml Optison Administered, (1.9 ml wasted). Contrast Administered by: Supervised/Interpreted by: Parth ??MD April Diagnosis: Location: [facility] Reason for test: Shortness of Breath MV [...] 2=Hypo 3=Akinetic 4=Dyskin./Aneurysm 0=Not visualized) Parasternal Long [place]olla:MAS=1 BAS=1 MIL=1 ALLEY=1 Parasternal Short [place]:MAS=1 MIS=1 TX=1 MIL=1 MAL=1 MA=1 Apical 4 Chambers:=1 MIS=1 BIS=1 BAL=1 MAL=1 AL=1 AC=1 Apical 2 Chambers:AI=1 TX=1 BI=1 BA=1 MA=1 AA=1 AC=1 LV Global Longitudinal Strain: -16% ??(Normal <-17%) RV Global Longitudinal Strain: LV Function: Normal LV Ejection Fraction, ??(EF=54-74%) RV Function: Normal Septal Motion: Normal Pericardial Effusion: trace Atrial Septum: Normal DOPPLER/COLOR FLOW DOPPLER RESULTS: Diastolic Function: Grade I, altered relax. w/N. LA pres. Tricuspid Valve: normal TV Pulmonic Valve: Mild GA AV Regurgitation: No AR seen AV Stenosis: [...] no , no MS, normal TV, Mild GA. Diastolic function: Grade I, altered relax. w/N. [...] April By signing this report, the attending die cast supervisor certifies that he or she has personally supervised and interpreted the echocardiogram and has reviewed and or edited and agrees with the written comments contained within the report. Procedure Note Parth Chen MD - 06/17/2024 Patient name: La Chung Date of test: 06/17/2024 Type of test: TTE w/Doppler Hospital #: [id number] Date of : 1950 (F) [employer] Electric Train Repairer: MICHAEL Blankenship Referring Physician: DANA CANCINO MD Contrast Agent: 1.1 ml Optison Administered, (1.9 ml wasted). Contrast Administered by: Supervised/Interpreted by: Prath Chen MD Diagnosis: Location: [facility] Reason for test: Shortness of Breath MV [...] 2=Hypo 3=Akinetic 4=Dyskin./Aneurysm 0=Not visualized) Parasternal Long [place]:MAS=1 BAS=1 MIL=1 ALLEY=1 Parasternal Short [place]:MAS=1 MIS=1 TX=1 MIL=1 MAL=1 MA=1 Apical 4 Chambers:=1 MIS=1 BIS=1 BAL=1 MAL=1 AL=1 AC=1 Apical 2 Chambers:AI=1 TX=1 BI=1 BA=1 MA=1 AA=1 AC=1 LV Global Longitudinal Strain: -16% (Normal <-17%) RV Global Longitudinal Strain: LV Function: Normal LV Ejection Fraction, (EF=54-74%) RV Function: Normal Septal Motion: Normal Pericardial Effusion: trace Atrial Septum: Normal DOPPLER/COLOR FLOW DOPPLER RESULTS: Diastolic Function: Grade I, altered relax. w/N. LA pres. Tricuspid Valve: normal TV Pulmonic Valve: Mild GA AV Regurgitation: No AR seen AV Stenosis: [...] no , no MS, normal TV, Mild GA. Diastolic function: Grade I, altered relax. w/N. [...] MD By signing this report, the attending die cast supervisor certifies that he or she has personally supervised and interpreted the echocardiogram and has reviewed and or edited and agrees with the written comments contained within the report. us Dana Cancino MD CV ECHO PROCEDURES Final Res ult * (ABNORMAL) eGFR (06/17/2024 1:25 AM WIRE PRODUCTS INSPECTOR) eGFR 32(L) >=60 mL/min/1. 73 m2 Comment: [...] last reviewed 2021. Blood 06/17/2024 1:25 AM WIRE PRODUCTS INSPECTOR 06/17/2024 1:49 AM WIRE PRODUCTS INSPECTOR us Nasir Lyons MD LAB BLOOD ORDERABLES Mel l Result [facility] [place] [address] * (ABNORMAL) CBC with auto differential (06/17/2024 1:25 AM WIRE PRODUCTS INSPECTOR) WBC 11.3(H) 3.8 - 9.9 K/cumm Hgb 11.4(L) 11.9 - 15.5 g/dL [facility] Hct 35.1(L) 35.6 - 45.5 % [facility] Plt 156 150 - 400 K/cumm [facility] MPV 10.1 9.1 - 12.3 fL [facility] RBC 3.62(L) 3.90 - 5.20 M/cumm [facility] MCV 97.0(H) 81.3 - 96.4 fL [facility] MCH 31.5 27.1 - 33.3 pg [facility] MCHC 32.5 32.3 - 35.7 g/dL [facility] RDW CV 14.6 11.1 - 14.9 % [facility] RDW SD 52.3(H) 35.7 - 48.1 fL [facility] NRBC abs 0.00 0.00 - 0.01 K/cumm [facility] Blood 06/17/2024 1:25 AM WIRE PRODUCTS INSPECTOR 06/17/2024 1:50 AM WIRE PRODUCTS INSPECTOR Nasir Lyons MD LAB BLOOD ORDERABLES Mel l Result [facility] Department [place] [address] * (ABNORMAL) Manual Differential (06/17/2024 1:25 AM WIRE PRODUCTS INSPECTOR) Pathologist [facility] Differential Manual Cells Counted 126 [facility] Neutrophil abs 2.8 1.5 - 6.5 K/cumm [facility] Imm gran abs 0.1 0.0 - 0.1 K/cumm [facility] Lymphocyte abs 6.9(H) 0.8 - 3.3 K/cumm [facility] Monocyte abs 1.5(H) 0.2 - 0.8 K/cumm [facility] Neutrophil pct 24.6 % [facility] Comment: Interpretive Data Percent cell count reference ranges are not reported, since discordance with absolute values may lead to misinterpretation of CBC data. Current Interpretive Data was last revised on 2017. Lymphocyte pct 60.3 % [facility] Comment: Interpretive Data Percent cell count reference ranges are not reported, since discordance with absolute values may lead to misinterpretation of CBC data. Current Interpretive Data was last revised on 2017. Monocyte pct 13.5 % [facility] Comment: Interpretive Data Percent cell count reference ranges are not reported, since discordance with absolute values may lead to misinterpretation of CBC data. Current Interpretive Data was last revised on 2017. Metamyelocyte pct 0.8 % [facility] Variant lymph pct 0.8 % [facility] Blood 06/17/2024 1:25 AM WIRE PRODUCTS INSPECTOR 06/17/2024 1:54 AM WIRE PRODUCTS INSPECTOR us Nasir Lyons MD LAB BLOOD ORDERABLES Mel l Result [facility] [place] [address] * Magnesium (06/17/2024 1:25 AM WIRE PRODUCTS INSPECTOR) [facility] Magnesium 1.8 1.4 - 2.5 mg/dL Blood 06/17/2024 1:25 AM WIRE PRODUCTS INSPECTOR 06/17/2024 1:49 AM WIRE PRODUCTS INSPECTOR Nasir Lyons MD LAB BLOOD ORDERABLES Mel l Result Performing Organization Address [facility] de Phone Number [facility] [place] [address] * Hepatic function panel (06/17/2024 1:25 AM WIRE PRODUCTS INSPECTOR) Pathologist [facility] Bilirubin, total 0.6 0.1 - 1.2 mg/dL Bilirubin, direct <0.2 0.1 - 0.3 mg/dL [facility] Comment:Reviewed Protein, pl 6.6 6.5 - 8.5 g/dL [facility] Albumin 3.9 3.5 - 5.0 g/dL [facility] Alk phos 75 40 - 130 Units/L [facility] ALT 11 7 - 45 Units/L [facility] AST 25 10 - 45 Units/L [facility] Blood 06/17/2024 1:25 AM WIRE PRODUCTS INSPECTOR 06/17/2024 1:49 AM WIRE PRODUCTS INSPECTOR Nasir Lyons MD LAB BLOOD ORDERABLES Mel l Result Performing Organization Address [facility] de Phone Number [facility] Department [place] [address] * (ABNORMAL) Basic metabolic panel (06/17/2024 1:25 AM WIRE PRODUCTS INSPECTOR) Pathologist [facility] Sodium 142 135 - 145 mmol/L Potassium, pl 3.6 3.3 - 4.9 mmol/L [facility] Chloride 107 97 - 110 mmol/L [facility] CO2 22 22 - 32 mmol/L [facility] Anion gap 13 2 - 15 mmol/L [facility] BUN 15 6 - 25 mg/dL [facility] Creatinine 1.65(H) 0.60 - 1.10 mg/dL [facility] Glucose 107 70 - 199 mg/dL [facility] Comment: Interpretive Data Fasting glucose [...] 2022. Calcium 8.3(L) 8.5 - 10.3 mg/dL [facility] Blood 06/17/2024 1:25 AM WIRE PRODUCTS INSPECTOR 06/17/2024 1:49 AM WIRE PRODUCTS INSPECTOR Nasir Lyons MD LAB BLOOD ORDERABLES Mel l Result Performing Organization Address [facility]/ZIP Co de Phone Number [facility] [place] [address] * FL Fluoroscopy < 1 Hour (06/16/2024 3:37 PM WIRE PRODUCTS INSPECTOR) Narrative [email or web address] - 06/16/2024 3:37 PM WIRE PRODUCTS INSPECTOR The images from this study are not interpreted by Radiology. ??Please refer to the physician's procedure / OR operative note. Mela Dejesus MD IMG FLUOROSCOPY PROCEDURE S Final Result Performing Organization Address [facility] Co de Phone Number [email or web address] * GA AN ELECTIVE SUPRAGLOTTIC AIRWAY, GA AN PROCEDURE PLACEHOLDER (06/16/2024 3:30 PM WIRE PRODUCTS INSPECTOR) Narrative Danielle Kirk CRNA - 06/16/2024 3:30 PM WIRE PRODUCTS INSPECTOR Danielle Kirk CRNA ? 06/16/2024 ??3:31 PM Airway Patient location: OR Urgency: elective Indications for airway management: anesthesia Difficult airway: no Staff: Supervising provider: Elissa Rosales MD Placed by: CONTRACT OFFICER: Danielle Kirk CRNA Emergent airway documentation: Risks [...] esult * (ABNORMAL) eGFR (06/16/2024 12:50 AM WIRE PRODUCTS INSPECTOR) eGFR 26(L) >=60 mL/min/1. 73 m2 [...] reviewed 2021. Blood 06/16/2024 12:5 0 AM WIRE PRODUCTS INSPECTOR 06/16/2024 1:22 AM WIRE PRODUCTS INSPECTOR us Nasir Lyons MD LAB BLOOD ORDERABLES Mel l Result [facility] Department [place] [address] * (ABNORMAL) CBC with auto differential (06/16/2024 12:50 AM WIRE PRODUCTS INSPECTOR) [facility] WBC 11.2(H) 3.8 - 9.9 K/cumm Hgb 11.0(L) 11.9 - 15.5 g/dL [facility] Hct 35.0(L) 35.6 - 45.5 % [facility] Plt 149(L) 150 - 400 K/cumm [facility] MPV 10.1 9.1 - 12.3 fL [facility] RBC 3.53(L) 3.90 - 5.20 M/cumm [facility] MCV 99.2(H) 81.3 - 96.4 fL [facility] MCH 31.2 27.1 - 33.3 pg [facility] MCHC 31.4(L) 32.3 - 35.7 g/dL [facility] RDW CV 15.0(H) 11.1 - 14.9 % [facility] RDW SD 54.4(H) 35.7 - 48.1 fL [facility] NRBC abs 0.00 0.00 - 0.01 K/cumm [facility] Blood 06/16/2024 12:5 0 AM WIRE PRODUCTS INSPECTOR 06/16/2024 1:22 AM WIRE PRODUCTS INSPECTOR Nasir Lyons MD LAB BLOOD ORDERABLES Mel badillo Result [facility] Department [place] [address] * (ABNORMAL) Manual Differential (06/16/2024 12:50 AM WIRE PRODUCTS INSPECTOR) [facility] Differential Manual Cells Counted 124 [facility] Neutrophil abs 1.9 1.5 - 6.5 K/cumm [facility] Imm gran abs 0.0 0.0 - 0.1 K/cumm [facility] Lymphocyte abs 8.0(H) 0.8 - 3.3 K/cumm [facility] Monocyte abs 1.3(H) 0.2 - 0.8 K/cumm [facility] Neutrophil pct 16.9 % [facility] Comment: Interpretive Data Percent cell count reference ranges are not reported, since discordance with absolute values may lead to misinterpretation of CBC data. Current Interpretive Data was last revised on 2017. Lymphocyte pct 71.8 % [facility] Comment: Interpretive Data Percent cell count reference ranges are not reported, since discordance with absolute values may lead to misinterpretation of CBC data. Current Interpretive Data was last revised on 2017. Monocyte pct 11.3 % [facility] Comment: Interpretive Data Percent cell count reference ranges are not reported, since discordance with absolute values may lead to misinterpretation of CBC data. Current Interpretive Data was last revised on 2017. Blood 06/16/2024 12:5 0 AM WIRE PRODUCTS INSPECTOR 06/16/2024 3:05 AM WIRE PRODUCTS INSPECTOR Nasir Lyons MD LAB BLOOD ORDERABLES Mel l Result Performing Organization Address City/[facility]/ZIP Co de Phone Number [facility] [employer] [place] [place] [address] * Magnesium (06/16/2024 12:50 AM WIRE PRODUCTS INSPECTOR) Magnesium 1.9 1.4 - 2.5 mg/dL Blood 06/16/2024 12:5 0 AM WIRE PRODUCTS INSPECTOR 06/16/2024 1:22 AM WIRE PRODUCTS INSPECTOR Nasir Lyons MD LAB BLOOD ORDERABLES Mel l Result [facility] [employer] [place] [address] * (ABNORMAL) Hepatic function panel (06/16/2024 12:50 AM WIRE PRODUCTS INSPECTOR) Bilirubin, total 0.8 0.1 - 1.2 mg/dL Bilirubin, direct 0.2 0.1 - 0.3 mg/dL [facility] Comment:Reviewed Protein, pl 6.3(L) 6.5 - 8.5 g/dL [facility] Albumin 4.1 3.5 - 5.0 g/dL [facility] Alk phos 71 40 - 130 Units/L [facility] ALT 9 7 - 45 Units/L [facility] AST 26 10 - 45 Units/L [facility] Blood 06/16/2024 12:5 0 AM WIRE PRODUCTS INSPECTOR 06/16/2024 1:22 AM WIRE PRODUCTS INSPECTOR us Nasir Lyons MD LAB BLOOD ORDERABLES Mel l Result [facility] [place] [address] * (ABNORMAL) Basic metabolic panel (06/16/2024 12:50 AM WIRE PRODUCTS INSPECTOR) [facility] Sodium 141 135 - 145 mmol/L Potassium, pl 4.0 3.3 - 4.9 mmol/L [facility] Chloride 108 97 - 110 mmol/L [facility] CO2 22 22 - 32 mmol/L [facility] Anion gap 11 2 - 15 mmol/L [facility] BUN 17 6 - 25 mg/dL [facility] Creatinine 1.97(H) 0.60 - 1.10 mg/dL [facility] Glucose 107 70 - 199 mg/dL [facility] Comment: Interpretive Data Fasting glucose [...] 2022. Calcium 8.7 8.5 - 10.3 mg/dL [facility] Blood 06/16/2024 12:5 0 AM WIRE PRODUCTS INSPECTOR 06/16/2024 1:22 AM WIRE PRODUCTS INSPECTOR us Nasir Lyons MD LAB BLOOD ORDERABLES Mel l Result Performing Organization Address [facility] Co de Phone Number [facility] [place] [address] * (ABNORMAL) eGFR (06/15/2024 1:26 AM WIRE PRODUCTS INSPECTOR) eGFR 27(L) >=60 mL/min/1. 73 m2 [...] last reviewed 2021. Blood 06/15/2024 1:26 AM WIRE PRODUCTS INSPECTOR 06/15/2024 1:36 AM WIRE PRODUCTS INSPECTOR us Nasir Lyons MD LAB BLOOD ORDERABLES Mel l Result Performing Organization Address [facility] Co de Phone Number [facility] [place] [address] * (ABNORMAL) CBC with auto differential (06/15/2024 1:26 AM WIRE PRODUCTS INSPECTOR) [facility] WBC 10.5(H) 3.8 - 9.9 K/cumm Hgb 10.9(L) 11.9 - 15.5 g/dL [facility] Hct 34.1(L) 35.6 - 45.5 % [facility] Plt 149(L) 150 - 400 K/cumm [facility] MPV 10.1 9.1 - 12.3 fL [facility] RBC 3.47(L) 3.90 - 5.20 M/cumm [facility] MCV 98.3(H) 81.3 - 96.4 fL [facility] MCH 31.4 27.1 - 33.3 pg [facility] MCHC 32.0(L) 32.3 - 35.7 g/dL [facility] RDW CV 14.8 11.1 - 14.9 % [facility] RDW SD 53.0(H) 35.7 - 48.1 fL [facility] NRBC abs 0.00 0.00 - 0.01 K/cumm [facility] Blood 06/15/2024 1:26 AM WIRE PRODUCTS INSPECTOR 06/15/2024 1:36 AM WIRE PRODUCTS INSPECTOR us Nasir Lyons MD LAB BLOOD ORDERABLES Mel badillo Result [facility] Department [place] [address] * (ABNORMAL) Manual Differential (06/15/2024 1:26 AM WIRE PRODUCTS INSPECTOR) [facility] Differential Manual Cells Counted 122 [facility] Neutrophil abs 4.5 1.5 - 6.5 K/cumm [facility] Imm gran abs 0.0 0.0 - 0.1 K/cumm [facility] Lymphocyte abs 5.8(H) 0.8 - 3.3 K/cumm [facility] Monocyte abs 0.2 0.2 - 0.8 K/cumm [facility] Basophil abs 0.1 0.0 - 0.1 K/cumm [facility] Neutrophil pct 42.6 % [facility] Comment: Interpretive Data Percent cell count reference ranges are not reported, since discordance with absolute values may lead to misinterpretation of CBC data. Current Interpretive Data was last revised on 2017. Lymphocyte pct 49.3 % [facility] Comment: Interpretive Data Percent cell count reference ranges are not reported, since discordance with absolute values may lead to misinterpretation of CBC data. Current Interpretive Data was last revised on 2017. Monocyte pct 1.6 % [facility] Comment: Interpretive Data Percent cell count reference ranges are not reported, since discordance with absolute values may lead to misinterpretation of CBC data. Current Interpretive Data was last revised on 2017. Basophil pct 0.8 % [facility] Comment: Interpretive Data Percent cell count reference ranges are not reported, since discordance with absolute values may lead to misinterpretation of CBC data. Current Interpretive Data was last revised on 2017. Variant lymph pct 5.7 % [facility] RBC morphology Normal [facility] Platelet estimate Adequate [facility] Blood 06/15/2024 1:26 AM WIRE PRODUCTS INSPECTOR 06/15/2024 1:39 AM WIRE PRODUCTS INSPECTOR Nasir Lyons MD LAB BLOOD ORDERABLES Mel l Result Performing Organization Address City/[facility]/ZIP Co de Phone Number [facility] [place] [address] * Magnesium (06/15/2024 1:26 AM WIRE PRODUCTS INSPECTOR) Magnesium 1.8 1.4 - 2.5 mg/dL Blood 06/15/2024 1:26 AM WIRE PRODUCTS INSPECTOR 06/15/2024 1:36 AM WIRE PRODUCTS INSPECTOR Nasir Lyons MD LAB BLOOD ORDERABLES Mel l Result Performing Organization Address City/[facility]/ZIP Co de Phone Number [facility] [place] [address] * (ABNORMAL) Hepatic function panel (06/15/2024 1:26 AM WIRE PRODUCTS INSPECTOR) [facility] Bilirubin, total 0.6 0.1 - 1.2 mg/dL Bilirubin, direct <0.2 0.1 - 0.3 mg/dL [facility] Protein, pl 6.3(L) 6.5 - 8.5 g/dL [facility] Albumin 4.0 3.5 - 5.0 g/dL [facility] Alk phos 71 40 - 130 Units/L [facility] ALT 11 7 - 45 Units/L [facility] AST 25 10 - 45 Units/L [facility] Blood 06/15/2024 1:26 AM WIRE PRODUCTS INSPECTOR 06/15/2024 1:36 AM WIRE PRODUCTS INSPECTOR Nasir Lyons MD LAB BLOOD ORDERABLES Mel l Result [facility] [place] [address] * (ABNORMAL) Basic metabolic panel (06/15/2024 1:26 AM WIRE PRODUCTS INSPECTOR) [facility] Sodium 139 135 - 145 mmol/L Potassium, pl 4.1 3.3 - 4.9 mmol/L [facility] Chloride 107 97 - 110 mmol/L [facility] CO2 22 22 - 32 mmol/L [facility] Anion gap 10 2 - 15 mmol/L [facility] BUN 18 6 - 25 mg/dL [facility] Creatinine 1.94(H) 0.60 - 1.10 mg/dL [facility] Glucose 127 70 - 199 mg/dL [facility] Comment: Interpretive Data Fasting glucose [...] 2022. Calcium 8.9 8.5 - 10.3 mg/dL [facility] Blood 06/15/2024 1:26 AM WIRE PRODUCTS INSPECTOR 06/15/2024 1:36 AM WIRE PRODUCTS INSPECTOR us Naisr Lyons MD LAB BLOOD ORDERABLES Mel l Result Performing Organization Address City/[facility]/ZIP Co de Phone Number [facility] [place] [address] * ECG 12 lead (06/14/2024 8:35 PM WIRE PRODUCTS INSPECTOR) Ventricular Rate EKG/Min 68 BPM [facility] Atrial Rate 68 BPM [facility] GA-Interval (MSEC) 134 ms [facility] QRS-Interval (MSEC) [address] [facility] QT-Interval (MSEC) 430 ms [facility] QTc 457 ms [facility] P [place] -[address] [facility] R [place] -[address] [facility] T [place] 2 degrees [facility] Diagnosis Normal sinus rhythm Normal ECG When compared with ECG of 17-APR-2019 07:30, No significant change was found Confirmed by PIPER WILSON M.D ([id number]) on 06/15/2024 5:17:10 PM [facility] 06/14/2024 8:35 PM WIRE PRODUCTS INSPECTOR 06/15/2024 5:17 PM WIRE PRODUCTS INSPECTOR us Eren Lund MD ECG ORDERABLES Final Result Performing Organization Address [facility]/ZIP Co de Phone Number [facility] [employer] [facility] * CT Abdomen Pelvis W Contrast (06/14/2024 2:26 AM WIRE PRODUCTS INSPECTOR) Anatomical Region Laterality Modality Body N/A Computed Tomogra phy 06/14/2024 4:36 AM WIRE PRODUCTS INSPECTOR Impressions 06/14/2024 9:47 AM WIRE PRODUCTS INSPECTOR 1. Slight increase in size of [...] Becky Golden M.D. Narrative 06/14/2024 9:47 AM WIRE PRODUCTS INSPECTOR EXAMINATION: ??Computed tomography of the abdomen [...] Result * (ABNORMAL) eGFR (06/14/2024 12:23 AM WIRE PRODUCTS INSPECTOR) eGFR 29(L) >=60 mL/min/1. 73 m2 [...] reviewed 2021. Blood 06/14/2024 12:2 3 AM WIRE PRODUCTS INSPECTOR 06/14/2024 12:35 AM WIRE PRODUCTS INSPECTOR us Kelton Keys MD LAB BLOOD ORDERABLES Final Res ult [facility] [place] [address] * (ABNORMAL) Differential, auto (06/14/2024 12:23 AM WIRE PRODUCTS INSPECTOR) Neutrophil abs 3.8 1.5 - 6.5 K/cumm Imm gran abs 0.0 0.0 - 0.1 K/cumm [facility] Lymphocyte abs 2.4 0.8 - 3.3 K/cumm [facility] Monocyte abs 3.4(H) 0.2 - 0.8 K/cumm [facility] Eosinophil abs 0.0 0.0 - 0.5 K/cumm [facility] Basophil abs 0.0 0.0 - 0.1 K/cumm [facility] Neutrophil pct 39.4 % [facility] Comment: Confirmed by smear review Interpretive Data Percent cell count reference ranges are not reported, since discordance with absolute values may lead to misinterpretation of CBC data. Current Interpretive Data was last revised on 2017. Imm gran pct 0.4 % [facility] Comment: Interpretive Data Percent cell count reference ranges are not reported, since discordance with absolute values may lead to misinterpretation of CBC data. Current Interpretive Data was last revised on 2017. Lymphocyte pct 24.8 % [facility] Comment: Interpretive Data Percent cell count reference ranges are not reported, since discordance with absolute values may lead to misinterpretation of CBC data. Current Interpretive Data was last revised on 2017. Monocyte pct 35.1 % [facility] Comment: Interpretive Data Percent cell count reference ranges are not reported, since discordance with absolute values may lead to misinterpretation of CBC data. Current Interpretive Data was last revised on 2017. Eosinophil pct 0.0 % [facility] Comment: Interpretive Data Percent cell count reference ranges are not reported, since discordance with absolute values may lead to misinterpretation of CBC data. Current Interpretive Data was last revised on 2017. Basophil pct 0.3 % [facility] Comment: Interpretive Data Percent cell count reference ranges are not reported, since discordance with absolute values may lead to misinterpretation of CBC data. Current Interpretive Data was last revised on 2017. Blood 06/14/2024 12:2 3 AM WIRE PRODUCTS INSPECTOR 06/14/2024 12:36 AM WIRE PRODUCTS INSPECTOR us Kelton Keys MD LAB BLOOD ORDERABLES Final Res ult [facility] [place] [address] * (ABNORMAL) Pro B-type natriuretic peptide (06/14/2024 12:23 AM WIRE PRODUCTS INSPECTOR) NT-proBNP 3,993(H) <=450 pg/mL Comment: Interpretive [...] Date: 2018. Blood 06/14/2024 12:2 3 AM WIRE PRODUCTS INSPECTOR 06/14/2024 12:35 AM WIRE PRODUCTS INSPECTOR us Armida Guajardo MD LAB BLOOD ORDERABLES Final Resul t [facility] [place] [address] * (ABNORMAL) CBC with auto differential (06/14/2024 12:23 AM WIRE PRODUCTS INSPECTOR) WBC 9.8 3.8 - 9.9 K/cumm Hgb 11.6(L) 11.9 - 15.5 g/dL [facility] Hct 36.6 35.6 - 45.5 % [facility] Plt 145(L) 150 - 400 K/cumm [facility] MPV 10.9 9.1 - 12.3 fL [facility] RBC 3.68(L) 3.90 - 5.20 M/cumm [facility] MCV 99.5(H) 81.3 - 96.4 fL [facility] MCH 31.5 27.1 - 33.3 pg [facility] MCHC 31.7(L) 32.3 - 35.7 g/dL [facility] RDW CV 14.7 11.1 - 14.9 % [facility] RDW SD 54.8(H) 35.7 - 48.1 fL [facility] NRBC abs 0.00 0.00 - 0.01 K/cumm [facility] Blood 06/14/2024 12:2 3 AM WIRE PRODUCTS INSPECTOR 06/14/2024 12:36 AM WIRE PRODUCTS INSPECTOR us Kelton Keys MD LAB BLOOD ORDERABLES Final Res ult [facility] [place] [address] * (ABNORMAL) Comprehensive metabolic panel (06/14/2024 12:23 AM WIRE PRODUCTS INSPECTOR) Sodium 139 135 - 145 mmol/L Potassium, pl 4.6 3.3 - 4.9 mmol/L [facility] Chloride 110 97 - 110 mmol/L [facility] CO2 19(L) 22 - 32 mmol/L [facility] Anion gap 10 2 - 15 mmol/L [facility] BUN 16 6 - 25 mg/dL [facility] Creatinine 1.79(H) 0.60 - 1.10 mg/dL [facility] Glucose 141 70 - 199 mg/dL [facility] Comment: Interpretive Data Fasting glucose [...] 2022. Calcium 8.9 8.5 - 10.3 mg/dL [facility] Bilirubin, total 0.4 0.1 - 1.2 mg/dL [facility] Protein, pl 6.4(L) 6.5 - 8.5 g/dL [facility] Albumin 3.9 3.5 - 5.0 g/dL [facility] Alk phos 79 40 - 130 Units/L [facility] ALT 8 7 - 45 Units/L [facility] AST 30 10 - 45 Units/L [facility] Blood 06/14/2024 12:2 3 AM WIRE PRODUCTS INSPECTOR 06/14/2024 12:35 AM WIRE PRODUCTS INSPECTOR us Kelton Keys MD LAB BLOOD ORDERABLES Final Res ult [facility] [place] [address] * (ABNORMAL) Urinalysis reflex to microscopic and culture Urine, clean voided (06/13/2024 6:05 PM WIRE PRODUCTS INSPECTOR) Color, ur Straw Yellow Clarity, ur Clear Clear [facility] Specific gravity, ur 1.015 1.003 - 1.030 [facility] pH, urine 6.0 [facility] Comment: Interpretive Data ? Urine pH is affected by diet, medications, systemic acid-base disturbances, and renal tubular function. ??pH may affect urinary stone formation. ??For example, urine pH below 6.0 may help reduce the tendency for calcium phosphate stones and pH greater than 6.0 may reduce the tendency for uric acid stone formation. Source: [facility] Current Interpretive Data was last revised on 2017 Protein, ur ql 1+(A) Negative [facility] Glucose, ur ql Negative Negative [facility] Ketones, ur Trace Negative [facility] Bilirubin, ur Negative Negative [facility] Blood, ur 1+(A) Negative [facility] Urobilinogen, ur <2.0 <2.0 mg/dL [facility] Nitrite, ur Negative Negative [facility] Leukocyte esterase, ur 1+(A) Negative [facility] UA reflex comment Reflex to microscopic UA will be performed. [facility] Urine, clean voided 06/13/2024 6:05 PM WIRE PRODUCTS INSPECTOR 06/13/2024 6:14 PM WIRE PRODUCTS INSPECTOR us Sharona Gomez NP LAB MICROBIOLOGY - GENERA L ORDERABLES Final Result Performing Organization Address [facility]/State/ZIP Co de Phone Number [facility] [place] [address] * (ABNORMAL) Urinalysis, microscopic only (06/13/2024 6:05 PM WIRE PRODUCTS INSPECTOR) [facility] WBC, ur 6-10(A) 0 - 5 /HPF RBC, ur 3-5(A) 0 - 2 /HPF [facility] Epithelial cells, squamous, ur 1-5 0 - 5 /HPF [facility] Bacteria, ur Trace(A) [facility] Mucous, ur Present(A) [facility] Hyaline casts, ur 1-5 0 - 10 /LPF [facility] Culture Reflex Comment Reflex conditions for urine culture (WBC >10) not met. [facility] Urine, clean voided 06/13/2024 6:05 PM WIRE PRODUCTS INSPECTOR 06/13/2024 6:14 PM WIRE PRODUCTS INSPECTOR Sharona Gomez INTELLIGENCE ENGINEER LAB URINE ORDERABLES [facility] Result Performing Organization Address [facility]/State/ZIP Co de Phone Number [facility] Department [place] [address] * Respiratory pathogen panel Nasopharyngeal (06/13/2024 4:56 PM WIRE PRODUCTS INSPECTOR) [facility] Influenza A RNA Not Detected Not Detected Influenza B RNA Not Detected Not Detected [facility] RSV RNA Not Detected Not Detected [facility] COVID-19 RNA Not Detected Not Detected [facility] Coronavirus 229E RNA Not Detected Not Detected [facility] Coronavirus HKU1 RNA Not Detected Not Detected [facility] Coronavirus NL63 RNA Not Detected Not Detected [facility] Coronavirus OC43 RNA Not Detected Not Detected [facility] Adenovirus DNA Not Detected Not Detected [facility] Metapneumovirus RNA Not Detected Not Detected [facility] Rhinovirus/Enterov irus RNA Not Detected Not Detected [facility] Parainfluenza 1 RNA Not Detected Not Detected [facility] Parainfluenza 2 RNA Not Detected Not Detected [facility] Parainfluenza 3 RNA Not Detected Not Detected [facility] Parainfluenza 4 RNA Not Detected Not Detected [facility] B. pertussis DNA Not Detected Not Detected [facility] B. parapertussis DNA Not Detected Not Detected [facility] C. pneumoniae DNA Not Detected Not Detected [facility] M. pneumoniae DNA Not Detected Not Detected [facility] Nasopharyngeal 06/13/2024 4: 56 PM WIRE PRODUCTS INSPECTOR 06/13/2024 5:34 PM WIRE PRODUCTS INSPECTOR Narrative CERNER BJ - 06/13/2024 6:38 PM WIRE PRODUCTS INSPECTOR Is the Patient experiencing symptoms consistent with COVID?->Yes Surveillance testing for transplant patient?->No ??Interpretive Data The 71lbs FilmArray Respiratory Panel (RP2.1) assay is a [...] assay has FDA clearance for testing of INTELLIGENCE ENGINEER swabs. ??The performance of additional specimen types has been assessed by the performing laboratory. ??The performance characteristics of this assay have been determined by [facility] Molecular Infectious Disease Laboratory. Current interpretive data was last revised on 22. Sharona Gomez INTELLIGENCE ENGINEER LAB MICROBIOLOGY - GENERA L ORDERABLES Final Result Performing Organization Address [facility] Co de Phone Number [facility] Department of [employer] [place] [address] * POC Blood Gas and Chemistries, Arterial - (06/13/2024 4:53 PM WIRE PRODUCTS INSPECTOR) [facility] Lactate, POC 1.3 0.7 - 2.2 mmol/L Hct, POC 37.0 36.3 - 45.3 % [facility] Total Hb, POC 12.2 11.9 - 15.5 g/dL [facility] Blood 06/13/2024 4:53 PM WIRE PRODUCTS INSPECTOR 06/13/2024 4:53 PM WIRE PRODUCTS INSPECTOR Eren Lund MD LAB POCT ORDERABLES - DEVICE Final Result Performing Organization Address [facility] de Phone Number J[facility]ON [facility] [place] [place] [address] * (ABNORMAL) eGFR (06/13/2024 4:30 PM WIRE PRODUCTS INSPECTOR) [facility] eGFR 25(L) >=60 mL/min/1. 73 m2 Comment: [...] last reviewed 2021. Blood 06/13/2024 4:30 PM WIRE PRODUCTS INSPECTOR 06/13/2024 4:57 PM WIRE PRODUCTS INSPECTOR us Sharona Gomez NP LAB BLOOD ORDERABLES Mel l Result Performing Organization Address City/[facility]/ZIP Co de Phone Number [facility] Department of [employer] [place] [address] * Senior staff review (06/13/2024 4:30 PM WIRE PRODUCTS INSPECTOR) Senior Staff Review Specimen Blood Senior Staff Review Review Done [facility] Comment:Reviewed by senior james salcedo. 06/14/2024 07:47:49 WIRE PRODUCTS INSPECTOR by MATT Blankenship. Blood 06/13/2024 4:30 PM WIRE PRODUCTS INSPECTOR 06/13/2024 5:36 PM WIRE PRODUCTS INSPECTOR us Eren Lund MD LAB BLOOD ORDERABLES Final Re sult Performing Organization Address City/[facility]/ZIP Co de Phone Number [facility] [place] [address] * (ABNORMAL) CBC with auto differential (06/13/2024 4:30 PM WIRE PRODUCTS INSPECTOR) [facility] WBC 10.1(H) 3.8 - 9.9 K/cumm Hgb 12.0 11.9 - 15.5 g/dL [facility] Hct 37.4 35.6 - 45.5 % [facility] Plt 142(L) 150 - 400 K/cumm [facility] MPV 9.7 9.1 - 12.3 fL [facility] RBC 3.78(L) 3.90 - 5.20 M/cumm [facility] MCV 98.9(H) 81.3 - 96.4 fL [facility] MCH 31.7 27.1 - 33.3 pg [facility] MCHC 32.1(L) 32.3 - 35.7 g/dL [facility] RDW CV 14.6 11.1 - 14.9 % [facility] RDW SD 53.0(H) 35.7 - 48.1 fL [facility] NRBC abs 0.00 0.00 - 0.01 K/cumm [facility] Blood 06/13/2024 4:30 PM WIRE PRODUCTS INSPECTOR 06/13/2024 5:36 PM WIRE PRODUCTS INSPECTOR Sharona Gomez NP LAB BLOOD ORDERABLES Edit ed Result - Final [facility] Department [place] [address] * (ABNORMAL) Manual Differential (06/13/2024 4:30 PM WIRE PRODUCTS INSPECTOR) [facility] Differential Manual Cells Counted 118 [facility] Neutrophil abs 5.1 1.5 - 6.5 K/cumm [facility] Lymphocyte abs 4.4(H) 0.8 - 3.3 K/cumm [facility] Monocyte abs 0.6 0.2 - 0.8 K/cumm [facility] Neutrophil pct 50.9 % [facility] Comment: Interpretive Data Percent cell count reference ranges are not reported, since discordance with absolute values may lead to misinterpretation of CBC data. Current Interpretive Data was last revised on 2017. Lymphocyte pct 28.8 % [facility] Comment: Interpretive Data Percent cell count reference ranges are not reported, since discordance with absolute values may lead to misinterpretation of CBC data. Current Interpretive Data was last revised on 2017. Monocyte pct 5.9 % [facility] Comment: Interpretive Data Percent cell count reference ranges are not reported, since discordance with absolute values may lead to misinterpretation of CBC data. Current Interpretive Data was last revised on 2017. Variant lymph pct 14.4 % [facility] RBC morphology Present(A) [facility] Anisocytosis Slight(A) [facility] Poikilocytosis Slight(A) [facility] Macrocytes 3-7/HPF(A) [facility] Schistocytes 1-2/HPF(A) [facility] Blood 06/13/2024 4:30 PM WIRE PRODUCTS INSPECTOR 06/13/2024 5:36 PM WIRE PRODUCTS INSPECTOR Sharona Gomez INTELLIGENCE ENGINEER LAB BLOOD ORDERABLES Mel l Result [facility] Department [place] [address] * Phosphorus (06/13/2024 4:30 PM WIRE PRODUCTS INSPECTOR) Phosphorus, pl 2.7 2.3 - 4.5 mg/dL Blood (Blood, Venous) 06/13/2024 4:30 PM WIRE PRODUCTS INSPECTOR 06/13/2024 4:57 PM WIRE PRODUCTS INSPECTOR Sharona Gomez INTELLIGENCE ENGINEER LAB BLOOD ORDERABLES Mel l Result [facility] Department [place] [address] * Magnesium (06/13/2024 4:30 PM WIRE PRODUCTS INSPECTOR) Magnesium 1.9 1.4 - 2.5 mg/dL Blood (Blood, Venous) 06/13/2024 4:30 PM WIRE PRODUCTS INSPECTOR 06/13/2024 4:57 PM WIRE PRODUCTS INSPECTOR Sharona Gomez INTELLIGENCE ENGINEER LAB BLOOD ORDERABLES Mel badillo Result [facility] [place] [address] * (ABNORMAL) Comprehensive metabolic panel (06/13/2024 4:30 PM WIRE PRODUCTS INSPECTOR) Sodium 139 135 - 145 mmol/L Potassium, pl 4.4 3.3 - 4.9 mmol/L [facility] Chloride 107 97 - 110 mmol/L [facility] CO2 22 22 - 32 mmol/L [facility] Anion gap 10 2 - 15 mmol/L [facility] BUN 18 6 - 25 mg/dL [facility] Creatinine 2.03(H) 0.60 - 1.10 mg/dL [facility] Glucose 121 70 - 199 mg/dL [facility] Comment: Interpretive Data Fasting glucose [...] Calcium 9.8 8.5 - 10.3 mg/dL [facility] Bilirubin, total 0.6 0.1 - 1.2 mg/dL [facility] Protein, pl 6.6 6.5 - 8.5 g/dL [facility] Albumin 4.2 3.5 - 5.0 g/dL [facility] Alk phos 85 40 - 130 Units/L [facility] ALT 14 7 - 45 Units/L [facility] AST 32 10 - 45 Units/L [facility] Blood 06/13/2024 4:30 PM WIRE PRODUCTS INSPECTOR 06/13/2024 4:57 PM WIRE PRODUCTS INSPECTOR us Sharona Gomez NP LAB BLOOD ORDERABLES Mel l Result Performing Organization Address [facility] de Phone Number [facility] [place] [address] * (ABNORMAL) eGFR (06/09/2024 1:27 PM WIRE PRODUCTS INSPECTOR) eGFR 30(L) >=60 mL/min/1. 73 m2 [...] last reviewed 2021. Blood 06/09/2024 1:27 PM WIRE PRODUCTS INSPECTOR 06/09/2024 1:40 PM WIRE PRODUCTS INSPECTOR us Claude Browning MD LAB BLOOD ORDERABLES Mel l Result Performing Organization Address City/State/[facility] Co de Phone Number JASON [facility] [place] [address] * (ABNORMAL) Chromogranin A (06/09/2024 1:27 PM WIRE PRODUCTS INSPECTOR) Chromogranin A 4537(H) <93 ng/mL [facility] Comment: Impaired renal or hepatic function or treatment with proton pump inhibitors may result in artifactual elevations of Chromogranin A. ADDITIONAL INFORMATION The testing method is a homogeneous time-resolved immunofluorescent assay manufactured by [employer] and performed on the Tinkor Compact Plus. ? Values obtained with different [...] examination and other findings. Test Performed by: [place] [address] Credit Manager: Carley Tony Ph.D.; CLIA# [id number] Blood 06/09/2024 1:27 PM WIRE PRODUCTS INSPECTOR 06/09/2024 3:08 PM WIRE PRODUCTS INSPECTOR Eren Lund MD LAB BLOOD ORDERABLES Final Re sult Performing Organization Address City/[facility]/ZIP Co de Phone Number JASON BLACK [facility] [place] [address] [facility] * (ABNORMAL) Vitamin D 25 hydroxy (06/09/2024 1:27 PM WIRE PRODUCTS INSPECTOR) Vitamin D 25-OH 16(L) 30 - 80 ng/mL Blood 06/09/2024 1:27 PM WIRE PRODUCTS INSPECTOR 06/09/2024 1:40 PM WIRE PRODUCTS INSPECTOR Eren Lund MD LAB BLOOD ORDERABLES Final Re sult Performing Organization Address [facility] de Phone Number [facility] [place] [address] * Phosphorus (06/09/2024 1:27 PM WIRE PRODUCTS INSPECTOR) Phosphorus, pl 3.1 2.3 - 4.5 mg/dL Blood 06/09/2024 1:27 PM WIRE PRODUCTS INSPECTOR 06/09/2024 1:40 PM WIRE PRODUCTS INSPECTOR Eren Lund MD LAB BLOOD ORDERABLES Final Re sult Performing Organization Address [facility] de Phone Number [facility] [place] [address] * (ABNORMAL) Lipid panel (06/09/2024 1:27 PM WIRE PRODUCTS INSPECTOR) Pathologist [facility] Cholesterol 135 30 - 199 mg/dL Comment: [...] revised on 2018. Triglycerides 160(H) <=149 mg/dL [facility] Comment: Interpretive Data Ages < [...] on 2018. HDL 39(L) >=40 mg/dL [facility] Comment: Interpretive Data Ages < [...] 2018. LDL, calculated 68 <=129 mg/dL [facility] Comment: Interpretive Data Ages < [...] 2024. Non-HDL Cholesterol 96 mg/dL [facility] Comment: Interpretive Data Ages < [...] revised on 2018. Chol/HDL ratio 3 [facility] Blood 06/09/2024 1:27 PM WIRE PRODUCTS INSPECTOR 06/09/2024 1:40 PM WIRE PRODUCTS INSPECTOR us Eren Lund MD LAB BLOOD ORDERABLES Final Re sult [facility] [place] [address] * (ABNORMAL) Comprehensive metabolic panel (06/09/2024 1:27 PM WIRE PRODUCTS INSPECTOR) Pathologist [facility] Sodium 140 135 - 145 mmol/L Potassium, pl 4.1 3.3 - 4.9 mmol/L [facility] Chloride 109 97 - 110 mmol/L [facility] CO2 24 22 - 32 mmol/L [facility] Anion gap 7 2 - 15 mmol/L [facility] BUN 20 6 - 25 mg/dL [facility] Creatinine 1.73(H) 0.60 - 1.10 mg/dL [facility] Glucose 90 70 - 199 mg/dL [facility] Comment: Interpretive Data Fasting glucose [...] Calcium 9.6 8.5 - 10.3 mg/dL [facility] Bilirubin, total 0.6 0.1 - 1.2 mg/dL [facility] Protein, pl 6.4(L) 6.5 - 8.5 g/dL [facility] Albumin 3.9 3.5 - 5.0 g/dL [facility] Alk phos 79 40 - 130 Units/L [facility] ALT 9 7 - 45 Units/L [facility] AST 28 10 - 45 Units/L [facility] Blood 06/09/2024 1:27 PM WIRE PRODUCTS INSPECTOR 06/09/2024 1:40 PM WIRE PRODUCTS INSPECTOR us Claude Browning MD LAB BLOOD ORDERABLES Mel badillo Result [facility] [place] [address] * (ABNORMAL) eGFR (05/12/2024 10:26 AM WIRE PRODUCTS INSPECTOR) Pathologist [facility] eGFR 38(L) >=60 mL/min/1. 73 m2 Comment: [...] reviewed 2021. Blood 05/12/2024 10:2 6 AM WIRE PRODUCTS INSPECTOR 05/12/2024 10:27 AM WIRE PRODUCTS INSPECTOR Eren Lund MD LAB BLOOD ORDERABLES Final Re sult [facility] [place] [address] * (ABNORMAL) Differential, auto (05/12/2024 10:26 AM WIRE PRODUCTS INSPECTOR) [facility] Neutrophil abs 2.5 1.5 - 6.5 K/cumm Comment:Testing performed by : [facility], [address] [place] [id number] Imm gran abs 0.0 0.0 - 0.1 K/cumm [facility] Lymphocyte abs 3.0 0.8 - 3.3 K/cumm [facility] Monocyte abs 2.2(H) 0.2 - 0.8 K/cumm [facility] Eosinophil abs 0.2 0.0 - 0.5 K/cumm [facility] Basophil abs 0.0 0.0 - 0.1 K/cumm [facility] Neutrophil pct 31.2 % [facility] Comment: Interpretive Data Percent cell count reference ranges are not reported, since discordance with absolute values may lead to misinterpretation of CBC data. Current Interpretive Data was last revised on 2017. Imm gran pct 0.3 % [facility] Comment: Interpretive Data Percent cell count reference ranges are not reported, since discordance with absolute values may lead to misinterpretation of CBC data. Current Interpretive Data was last revised on 2017. Lymphocyte pct 37.5 % [facility] Comment: Interpretive Data Percent cell count reference ranges are not reported, since discordance with absolute values may lead to misinterpretation of CBC data. Current Interpretive Data was last revised on 2017. Monocyte pct 28.1 % [facility] Comment: Interpretive Data Percent cell count reference ranges are not reported, since discordance with absolute values may lead to misinterpretation of CBC data. Current Interpretive Data was last revised on 2017. Eosinophil pct 2.5 % [facility] Comment: Interpretive Data Percent cell count reference ranges are not reported, since discordance with absolute values may lead to misinterpretation of CBC data. Current Interpretive Data was last revised on 2017. Basophil pct 0.4 % [facility] Comment: Interpretive Data Percent cell count reference ranges are not reported, since discordance with absolute values may lead to misinterpretation of CBC data. Current Interpretive Data was last revised on 2017. Blood 05/12/2024 10:2 6 AM WIRE PRODUCTS INSPECTOR 05/12/2024 10:27 AM WIRE PRODUCTS INSPECTOR us Eren Lund MD LAB BLOOD ORDERABLES Final Re sult [facility] [place] [address] * (ABNORMAL) Chromogranin A (05/12/2024 10:26 AM WIRE PRODUCTS INSPECTOR) Chromogranin A 4282(H) <93 ng/mL [facility] Comment: Impaired renal or hepatic function or treatment with proton pump inhibitors may result in artifactual elevations of Chromogranin A. ADDITIONAL INFORMATION The testing method is a homogeneous time-resolved immunofluorescent assay manufactured by [employer] and performed on the [employer] Compact Plus. ? Values obtained with different [...] examination and other findings. Test Performed by: [place] [address] Credit Manager: Carley Tony Ph.D.; CLIA# [id number] Blood 05/12/2024 10:2 6 AM WIRE PRODUCTS INSPECTOR 05/12/2024 11:41 AM WIRE PRODUCTS INSPECTOR us Eren Lund MD LAB BLOOD ORDERABLES Final Re sult [facility] [place] [address] [facility] * (ABNORMAL) CBC with auto differential (05/12/2024 10:26 AM WIRE PRODUCTS INSPECTOR) WBC 7.9 3.8 - 9.9 K/cumm Comment:Testing performed by : [facility], [address] [place] [id number] Hgb 11.3(L) 11.9 - 15.5 g/dL [facility] Comment:Testing performed by : [address] [address] Hct 35.5(L) 35.6 - 45.5 % [facility] Comment:Testing performed by : [address] [address] Plt 129(L) 150 - 400 K/cumm [facility] Comment:Testing performed by : [address] [address] MPV 9.0(L) 9.1 - 12.3 fL [facility] RBC 3.57(L) 3.90 - 5.20 M/cumm [facility] MCV 99.4(H) 81.3 - 96.4 fL [facility] MCH 31.7 27.1 - 33.3 pg [facility] MCHC 31.8(L) 32.3 - 35.7 g/dL [facility] RDW CV 15.7(H) 11.1 - 14.9 % [facility] RDW SD 57.3(H) 35.7 - 48.1 fL [facility] NRBC abs 0.00 0.00 - 0.01 K/cumm [facility] Blood 05/12/2024 10:2 6 AM WIRE PRODUCTS INSPECTOR 05/12/2024 10:27 AM WIRE PRODUCTS INSPECTOR us Eren Lund MD LAB BLOOD ORDERABLES Final Re sult [facility] [place] [address] * (ABNORMAL) Vitamin D 25 hydroxy (05/12/2024 10:26 AM WIRE PRODUCTS INSPECTOR) Pathologist [facility] Vitamin D 25-OH 18(L) 30 - 80 ng/mL Blood 05/12/2024 10:2 6 AM WIRE PRODUCTS INSPECTOR 05/12/2024 11:56 AM WIRE PRODUCTS INSPECTOR Eren Lund MD LAB BLOOD ORDERABLES Final Re sult Performing Organization Address [facility] de Phone Number [facility] [place] [address] * (ABNORMAL) Manual Differential (05/12/2024 10:26 AM WIRE PRODUCTS INSPECTOR) Differential Auto RBC morphology Present(A ) [facility] Anisocytosis Slight(A) [facility] Elliptocytes 3-7/HPF(A ) [facility] Platelet estimate Decreased (A) [facility] Blood 05/12/2024 10:2 6 AM WIRE PRODUCTS INSPECTOR 05/12/2024 10:27 AM WIRE PRODUCTS INSPECTOR us Eren Lund MD LAB BLOOD ORDERABLES Final Re sult Performing Organization Address [facility] de Phone Number [facility] [place] [address] * Phosphorus (05/12/2024 10:26 AM WIRE PRODUCTS INSPECTOR) Phosphorus, pl 2.9 2.3 - 4.5 mg/dL Comment:Testing performed by : [address] [address] Blood 05/12/2024 10:2 6 AM WIRE PRODUCTS INSPECTOR 05/12/2024 10:27 AM WIRE PRODUCTS INSPECTOR Eren Lund MD LAB BLOOD ORDERABLES Final Re sult Performing Organization Address [facility] de Phone Number [facility] [place] [address] * Magnesium (05/12/2024 10:26 AM WIRE PRODUCTS INSPECTOR) Magnesium 1.5 1.4 - 2.5 mg/dL Comment:Testing performed by : [address] [address] Blood 05/12/2024 10:2 6 AM WIRE PRODUCTS INSPECTOR 05/12/2024 10:27 AM WIRE PRODUCTS INSPECTOR us Eren Lund MD LAB BLOOD ORDERABLES Final Re sult [facility]ON [facility] [place] [address] * (ABNORMAL) Lipid panel (05/12/2024 10:26 AM WIRE PRODUCTS INSPECTOR) Cholesterol 128 30 - 199 mg/dL Comment: [...] on 2018. HDL 37(L) >=40 mg/dL [facility] Comment: Interpretive Data Ages < [...] 2018. LDL, calculated 67 <=129 mg/dL [facility] Comment: Interpretive Data Ages < [...] revised on 2024. Non-HDL Cholesterol 91 mg/dL [facility] Comment: Interpretive Data Ages < [...] revised on 2018. Chol/HDL ratio 3 [facility] Blood 05/12/2024 10:2 6 AM WIRE PRODUCTS INSPECTOR 05/12/2024 11:56 AM WIRE PRODUCTS INSPECTOR Eren Lund MD LAB BLOOD ORDERABLES Final Re sult [facility] [place] [address] * (ABNORMAL) Comprehensive metabolic panel (05/12/2024 10:26 AM WIRE PRODUCTS INSPECTOR) [facility] Sodium 139 135 - 145 mmol/L Comment:Testing performed by : [facility], [address] [place] [id number] Potassium, pl 4.3 3.3 - 4.9 mmol/L [facility] Chloride 109 97 - 110 mmol/L [facility] CO2 22 22 - 32 mmol/L [facility] Anion gap 8 2 - 15 mmol/L [facility] BUN 20 6 - 25 mg/dL [facility] Creatinine 1.44(H) 0.60 - 1.10 mg/dL [facility] Glucose 89 70 - 199 mg/dL [facility] Comment: Interpretive Data Fasting glucose [...] AST 38 10 - 45 Units/L [facility] Blood 05/12/2024 10:2 6 AM WIRE PRODUCTS INSPECTOR 05/12/2024 10:27 AM WIRE PRODUCTS INSPECTOR us Eren Lund MD LAB BLOOD ORDERABLES Final Re sult [facility] [place] [address] * CT chest abdomen pelvis with contrast [...] revised 2018. Creatinine Ur 178.7 mg/dL [facility] Comment: Interpretive Data No reference range established. Current interpretive data was last revised 2018. Protein/creatinin e ratio 141.0 0.0 - 180.0 mg/g CR JASON [facility] Urine 04/14/2024 10:4 0 AM CDT 04/14/2024 11:52 AM CDT us Eren Lund MD LAB URINE ORDERABLES Final Re sult Performing Organization Address [facility] Co de Phone Number JASON BLACK [facility] [place] [address] * (ABNORMAL) eGFR (04/14/2024 10:35 AM CDT) [...] Final Re sult Performing Organization Address City/[facility] Co de Phone Number JASON BLACK [facility] [place] [address] * (ABNORMAL) Differential, auto (04/14/2024 10:35 AM CDT) Neutrophil abs 2.7 1.5 - 6.5 K/cumm Comment:Testing performed by : [facility], [address] [place] [address] Imm gran abs 0.0 0.0 - 0.1 K/cumm [facility] Lymphocyte abs 2.7 0.8 - 3.3 K/cumm [facility] Monocyte abs 1.3(H) 0.2 - 0.8 K/cumm [facility] Eosinophil abs 0.2 0.0 - 0.5 K/cumm [facility] Basophil abs 0.0 0.0 - 0.1 K/cumm [facility] Neutrophil pct 38.7 % [facility] Comment: Interpretive Data Percent cell count reference ranges are not reported, since discordance with absolute values may lead to misinterpretation of CBC data. Current Interpretive Data was last revised on 2017. Imm gran pct 0.3 % [facility] Comment: Interpretive Data Percent cell count reference ranges are not reported, since discordance with absolute values may lead to misinterpretation of CBC data. Current Interpretive Data was last revised on 2017. Lymphocyte pct 39.4 % [facility] Comment: Interpretive Data Percent cell count reference ranges are not reported, since discordance with absolute values may lead to misinterpretation of CBC data. Current Interpretive Data was last revised on 2017. Monocyte pct 18.5 % [facility] Comment: Interpretive Data Percent cell count reference ranges are not reported, since discordance with absolute values may lead to misinterpretation of CBC data. Current Interpretive Data was last revised on 2017. Eosinophil pct 2.8 % [facility] Comment: Interpretive Data Percent cell count reference ranges are not reported, since discordance with absolute values may lead to misinterpretation of CBC data. Current Interpretive Data was last revised on 2017. Basophil pct 0.3 % [facility] Comment: Interpretive Data Percent cell count reference ranges are not reported, since discordance with absolute values may lead to misinterpretation of CBC data. Current Interpretive Data was last revised on 2017. Blood 04/14/2024 10:3 5 AM CDT 04/14/2024 10:35 AM CDT Eren Lund MD LAB BLOOD ORDERABLES Final Re sult [facility] [place] [address] * (ABNORMAL) Chromogranin A (04/14/2024 10:35 AM CDT) Chromogranin A 2929(H) <93 ng/mL [facility] Comment: Impaired renal or hepatic function or treatment with proton pump inhibitors may result in artifactual elevations of Chromogranin A. ADDITIONAL INFORMATION The testing method is a homogeneous time-resolved immunofluorescent assay manufactured by [employer] and performed on the Real Time Wine Kryptor Compact Plus. ? Values obtained with [...] examination and other findings. Test Performed by: [facility] - [address] [address] Credit Manager: Carley Tony Ph.D.; CLIA# [id number] Blood 04/14/2024 10:3 5 AM CDT 04/14/2024 11:52 AM CDT Eren Lund MD LAB BLOOD ORDERABLES Final Re sult Performing Organization Address City/[facility]/ZIP Co de Phone Number [facility] [place] [address] [facility] * (ABNORMAL) CBC with auto differential (04/14/2024 10:35 AM CDT) WBC 6.8 3.8 - 9.9 K/cumm Comment:Testing performed by : [address] [address] Hgb 10.8(L) 11.9 - 15.5 g/dL [facility] Comment:Testing performed by : [address] [address] Hct 33.5(L) 35.6 - 45.5 % [facility] Comment:Testing performed by : [address] [address] Plt 117(L) 150 - 400 K/cumm [facility] Comment:Testing performed by : [address] [address] MPV 9.9 9.1 - 12.3 fL [facility] RBC 3.42(L) 3.90 - 5.20 M/cumm [facility] MCV 98.0(H) 81.3 - 96.4 fL [facility] MCH 31.6 27.1 - 33.3 pg [facility] MCHC 32.2(L) 32.3 - 35.7 g/dL [facility] RDW CV 16.4(H) 11.1 - 14.9 % [facility] RDW SD 58.2(H) 35.7 - 48.1 fL [facility] NRBC abs 0.00 0.00 - 0.01 K/cumm [facility] Blood 04/14/2024 10:3 5 AM CDT 04/14/2024 10:35 AM CDT Eren Lund MD LAB BLOOD ORDERABLES Final Re sult Performing Organization Address City/[facility]/ZIP Co de Phone Number [facility] [place] [address] * (ABNORMAL) Vitamin D 25 hydroxy (04/14/2024 10:35 AM CDT) [facility] Vitamin D 25-OH 19(L) 30 - 80 ng/mL Blood 04/14/2024 10:3 5 AM CDT 04/14/2024 11:52 AM CDT Eren Lund MD LAB BLOOD ORDERABLES Final Re sult [facility] [place] [address] * (ABNORMAL) Manual Differential (04/14/2024 10:35 AM CDT) [facility] Differential Auto Neutrophil abs 2.7 1.5 - 6.5 K/cumm [facility] Comment:Testing performed by : [facility], [address] [place] [address] Imm gran abs 0.0 0.0 - 0.1 K/cumm [facility] Lymphocyte abs 2.7 0.8 - 3.3 K/cumm [facility] Monocyte abs 1.3(H) 0.2 - 0.8 K/cumm [facility] Eosinophil abs 0.2 0.0 - 0.5 K/cumm [facility] Basophil abs 0.0 0.0 - 0.1 K/cumm [facility] Neutrophil pct 38.7 % [facility] Comment: Interpretive Data Percent cell count reference ranges are not reported, since discordance with absolute values may lead to misinterpretation of CBC data. Current Interpretive Data was last revised on 2017. Imm gran pct 0.3 % [facility] Comment: Interpretive Data Percent cell count reference ranges are not reported, since discordance with absolute values may lead to misinterpretation of CBC data. Current Interpretive Data was last revised on 2017. Lymphocyte pct 39.4 % [facility] Comment: Interpretive Data Percent cell count reference ranges are not reported, since discordance with absolute values may lead to misinterpretation of CBC data. Current Interpretive Data was last revised on 2017. Monocyte pct 18.5 % [facility] Comment: Interpretive Data Percent cell count reference ranges are not reported, since discordance with absolute values may lead to misinterpretation of CBC data. Current Interpretive Data was last revised on 2017. Eosinophil pct 2.8 % [facility] Comment: Interpretive Data Percent cell count reference ranges are not reported, since discordance with absolute values may lead to misinterpretation of CBC data. Current Interpretive Data was last revised on 2017. Basophil pct 0.3 % [facility] Comment: Interpretive Data Percent cell count reference ranges are not reported, since discordance with absolute values may lead to misinterpretation of CBC data. Current Interpretive Data was last revised on 2017. RBC morphology Present(A ) [facility] Anisocytosis Slight(A) [facility] Elliptocytes 3-7/HPF(A ) [facility] Platelet estimate Decreased (A) [facility] Blood 04/14/2024 10:3 5 AM CDT 04/14/2024 10:35 AM CDT us Eren Lund MD LAB BLOOD ORDERABLES Final Re sult Performing Organization Address City/[facility]/ZIP Co de Phone Number [facility] [place] [address] * (ABNORMAL) Phosphorus (04/14/2024 10:35 AM CDT) Phosphorus, pl 1.9(L) 2.3 - 4.5 mg/dL Comment:Testing performed by : [facility], [address] [place] [address] Blood 04/14/2024 10:3 5 AM CDT 04/14/2024 10:35 AM CDT us Eren Lund MD LAB BLOOD ORDERABLES Final Re sult [facility] [place] [address] * (ABNORMAL) Phosphorus (04/14/2024 10:35 AM CDT) Pathologist [facility] Phosphorus, pl 2.0(L) 2.3 - 4.5 mg/dL Comment:Testing performed by : [facility], [address] [place] [address] Blood 04/14/2024 10:3 5 AM CDT 04/14/2024 10:35 AM CDT Eren Lund MD LAB BLOOD ORDERABLES Final Re sult Performing Organization Address [facility] Co de Phone Number [facility] [employer] [place] [address] * Magnesium (04/14/2024 10:35 AM CDT) [facility] Magnesium 1.5 1.4 - 2.5 mg/dL Comment:Testing performed by : [facility], [address] [place] [address] Blood 04/14/2024 10:3 5 AM CDT 04/14/2024 10:35 AM CDT Eren Lund MD LAB BLOOD ORDERABLES Final Re sult Performing Organization Address [facility] de Phone Number [facility] [place] [address] * Lipid panel (04/14/2024 10:35 AM CDT) Pathologist [facility] Cholesterol 125 30 - 199 mg/dL [...] revised on 2018. Triglycerides 130 <=149 mg/dL [facility] Comment: Interpretive Data Ages < [...] revised on 2018. HDL 40 >=40 mg/dL [facility] Comment: Interpretive Data Ages < [...] on 2018. LDL, calculated 62 <=129 mg/dL [facility] Comment: Interpretive Data Ages < [...] revised on 2024. Non-HDL Cholesterol 85 mg/dL [facility] Comment: Interpretive Data Ages < [...] revised on 2018. Chol/HDL ratio 3 [facility] Blood 04/14/2024 10:3 5 AM CDT 04/14/2024 11:52 AM CDT us Eren Lund MD LAB BLOOD ORDERABLES Final Re sult [facility] [place] [address] * (ABNORMAL) Comprehensive metabolic panel (04/14/2024 10:35 AM CDT) Sodium 140 135 - 145 mmol/L Comment:Testing performed by : [facility], [address] [place] [address] Potassium, pl 4.6 3.3 - 4.9 mmol/L [facility] Chloride 111(H) 97 - 110 mmol/L [facility] CO2 24 22 - 32 mmol/L [facility] Anion gap 5 2 - 15 mmol/L [facility] BUN 16 6 - 25 mg/dL [facility] Creatinine 1.46(H) 0.60 - 1.10 mg/dL [facility] Glucose 96 70 - 199 mg/dL [facility] Comment: Interpretive Data Fasting glucose [...] Calcium 9.5 8.5 - 10.3 mg/dL [facility] Bilirubin, total 0.4 0.1 - 1.2 mg/dL [facility] Protein, pl 5.9(L) 6.5 - 8.5 g/dL [facility] Albumin 3.8 3.5 - 5.0 g/dL [facility] Alk phos 57 40 - 130 Units/L [facility] ALT 18 7 - 45 Units/L [facility] AST 32 10 - 45 Units/L [facility] Blood 04/14/2024 10:3 5 AM CDT 04/14/2024 10:35 AM CDT Eren Lund MD LAB BLOOD ORDERABLES Final Re sult [facility] [place] [address] * Screening Mammogram Bilateral W Seng (06/13/2023 2:01 PM WIRE PRODUCTS INSPECTOR) Anatomical Region Laterality Modality Breast Bilateral Mammography Narrative 06/14/2023 12:40 PM WIRE PRODUCTS INSPECTOR Mammogram Technique: Bilateral Digital Breast Tomosynthesis, Bilateral C-view 2D Screening mammogram. ??Views obtained: ??bilateral craniocaudal and bilateral mediolateral oblique. ??Computer Aided Detection was performed. Mammogram Findings: The present examination has been compared to prior imaging studies performed at [facility] on 12/21/2019, 01/23/2021 and 04/02/2022. There [...] compared to prior imaging studies performed at [facility] on 12/21/2019, 01/23/2021 and 04/02/2022. There are scattered areas of fibroglandular density. There is no suspicious abnormality in either breast. Impression: There is no mammographic evidence of malignancy. Annual screening mammography is recommended. OVERALL FINAL ASSESSMENT: BI-RADS CATEGORY 1: Negative. Self Screening Mammogram IMG MAMMO PROCEDURES Fi nal Result * Hepatitis panel, acute (01/02/2021 2:05 PM CDT) Hep A IgM Nonreactive Nonreactive [facility] Comment: Interpretive Data: If Hep A IgM Ab is reported as Equivocal, a new sample should be drawn in two weeks for testing. Current interpretive data was last revised on 19. Hep B core IgM Nonreactive Nonreactive [facility] Comment: Interpretive Data If HepB Core IgM Ab is reported as Equivocal, a new sample should be drawn in two weeks for testing. Current interpretive data was last revised on 19. Hep C Ab Nonreactive Nonreactive [facility] Comment:Antibodies to HCV no t detected. Does NOT exclude the possibility of recent exposure to HCV. HepBsAg Nonreactive Nonreactive [facility] Blood specimen (specimen) 01/02/2021 2:05 PM CDT 01/02/2021 2:37 PM CDT us Eren Lund MD LAB MICROBIOLOGY - GENERAL OR DERABLES Edited Result - Final [facility] [place] [address] * Dexa Axial Skeleton Bone Density 1 or 2 Site (03/10/2020 9:58 AM CDT) Anatomical Region Laterality Modality Body N/A Radiographic Gabbie ging Narrative 03/12/2020 2:39 PM CDT Patient Name: La Chung Date of : 1950 Date of scan: 03/10/2020 Bone mineral density was performed on a [employer] Discovery Densitometer. ?? Machine Cross-calibration and Precision [...] by the International Society of Clinical Densitometry. [id number] Oksana Rivas NP IMG DXA PROCEDURES Final Result from Last 3 Months or Most Recently Relevant to Health [place] [address] [facility] Member Subscriber Plan / Payer (Ef fective 2017-Present) Name:EDIEMIKAL RosaNE Relation to Subscriber:Self Name:Mikal Chungne Karishma Payer ID:[id number] Group ID:[id number] Type:Men's Style Lab Address: [facility] [address] [place] [address] MEDICARE [facility] Member Subscriber Plan / Payer (Ef fective 2017-Present) Name:La Chung Relation to Subscriber:Self Name:LA CHUNG Payer ID:[id number] Group ID:[id number] Type:Men's Style Lab Address: [facility] [address] [place] [address] MEDICARE MEDICARE [facility] [place] [address] [facility] Advance Directives For more information, please contact: [phone] * Full Code (Latest Code Status on [...] 12:16 PM 09/14/2021 8:10 PM Care Teams Registered Nurse Hh Case Manager Relationship Specialty Start Date End Date Julio César Briseno MD PCP - General 10/01/16 Eren Lund MD Referring Physician Medical Oncology 11/25/18 Yohana Bowen MD Radiation Oncologist Radiation Oncology 11/25/18 Alejo Mi MD [address] [place] [address] Referring Physician Nephrology 03/07/23
--- OUTSIDE RECORDS SUMMARY | 2024-06-26 01:51 | XMS_ITS | Encounter Summary ---
Author Organization [facility] Address [address] [place] [address] Phone Care Team Providers Care Plastic Technician Name Role Phone Julio César Briseno MD Primary Care Provider Eren Cr MD Unavailable [phone] Yohana Bowen MD Unavailable Alejo Mi MD Unavailable [phone] Encounter Details Date Type Department Care Team (Late st Contact Info) Description 06/17/2024 Orders Only [facility] [address] [facility] Floor [address] [place] [address] Claude Browning MD [address] [facility] [address] [place] [address] Social History Tobacco Use Types [...] materials from doctor or pharmacy Never 11/07/2022 [facility] Utilities Answer Date Recorded In [...] often do you attend chur ch or restorationism services? 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 Gender Identity Not on file Sexual Orientation Straight 02/19/2021 9: 29 AM CDT Occupation Industry Job Start Date Job End Date retired Not on file Not on file Not on file documented as of this encounter Plan of Treatment Not on file documented as of this encounter Visit Diagnoses Not on filedocumented in this encounter Care Teams Plastic Technician Relationship Specialty Start Date End Date Julio César Briseno MD PCP - General 10/01/16 Eren Cr MD Referring Physician Medical Oncology 11/25/18 Yohana Bowen MD Radiation Oncologist Radiation Oncology 11/25/18 Alejo Mi MD [address] [place] [address] Referring Physician Nephrology 03/07/23 documented as of this encounter
--- OUTSIDE RECORDS SUMMARY | 2024-06-26 01:51 | XMS_ITS | Encounter Summary ---
Author Organization [facility] Address [address] [place] [address] Phone Care Team Providers Care Spa Experience Coordinator Name Role Phone Julio César Briesno MD Primary Care Provider [phone] Eren Cr MD Unavailable [phone] Yohana Bowen MD Unavailable Alejo Mi MD Unavailable [phone] Encounter Details Date Type Department Care Team (Late st Contact Info) Description 06/21/2024 Telephone [facility] Oncology [address] [place] [address] Shaniqua Lawrence, RN Social History Tobacco Use [...] materials from doctor or pharmacy Never 11/07/2022 [facility] Utilities Answer Date Recorded In the [...] often do you attend chur ch or nondenominational services? More than 4 times per year 06/20/2024 Do you belong to any clubs o r organizations such as bahai groups, unions, fraternal or athletic groups, or [...] any time in the past 12 m [facility], were you homeless or living in a group home (including now)? No 06/20/2024 Personal Safety Answer Date Recorded Have you ever been in or are you currently in a harmful physical or emotional relationship or is someone making you feel afraid or unsafe? 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 Patient and verbalized understanding. Shaniqua MANAGER documented in this encounter Plan of Treatment Not on file documented as of this encounter Visit Diagnoses Not on filedocumented in this encounter Care Teams Spa Experience Coordinator Relationship Specialty Start Date End Date Julio César Briseno MD PCP - General 10/01/16 Eren Cr MD Referring Physician Medical Oncology 11/25/18 Yohana Bowen MD Radiation Oncologist Radiation Oncology 11/25/18 Alejo Mi MD [address] [address] Referring Physician Nephrology 03/07/23 documented as of this encounter
--- OUTSIDE RECORDS SUMMARY | 2024-06-26 01:51 | XMS_ITS | Encounter Summary ---
Author Organization [employer] [facility] Address [address] [place] [address] Phone Care Team Providers Care Pit Shovel Operator Name Role Phone Julio César Briseno MD Primary Care Provider Eren Cr MD Unavailable [phone] Yohana Bowen MD Unavailable Alejo Mi MD Unavailable [phone] Reason for Visit * Reason Onset Date Comments exchange call/ER follow up 06/22/2024 Encounter Details Date Type Department Care Team (Late st Contact Info) Description 06/22/2024 Telephone [facility] Oncology [address] [place] [address] Eren Cr MD [address] [place] [address] exchange call/ER follow up Social History Tobacco [...] materials from doctor or pharmacy Never 11/07/2022 [facility] Utilities Answer Date Recorded In the [...] often do you attend chur ch or jehovah's witness services? More than 4 times per year 06/20/2024 Do you belong to any clubs o r organizations such as shinto groups, unions, fraternal or athletic groups, or [...] time in the past 12 m [facility], were you homeless or living in a alf (including now)? No 06/20/2024 Personal Safety Answer Date Recorded Have you ever been in or are you currently in a harmful physical or emotional relationship or is someone making you feel afraid or unsafe? 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 Patient thankful for call. PROCESSING SUPERVISOR documented in this encounter Plan of Treatment Not on file documented as of this encounter Visit Diagnoses Not on filedocumented in this encounter Care Teams Pit Shovel Operator Relationship Specialty Start Date End Date Julio César Briseno MD PCP - General 10/01/16 Eren Cr MD Referring Physician Medical Oncology 11/25/18 Yohana Bowen MD Radiation Oncologist Radiation Oncology 11/25/18 Alejo Mi MD [address] [place] [address] Referring Physician Nephrology 03/07/23 documented as of this encounter
--- OUTSIDE RECORDS SUMMARY | 2024-06-26 01:51 | XMS_ITS | Encounter Summary ---
Author Organization [facility] Address [address] [place] [address] Care Team Providers Care Video Production Specialist Name Role Phone Julio César Briseno MD Primary Care Provider [phone] Eren Cr MD Unavailable [phone] Yohana Bowen MD Unavailable Alejo Mi MD Unavailable [phone] Encounter Details Date Type Department Care Team (Late st Contact Info) Description 06/22/2024 Telephone [facility] Radiology [address] [place] [address] Dorota Rogers, [place] Social History Tobacco Use Types Packs/Day [...] materials from doctor or pharmacy Never 11/07/2022 [facility] Utilities Answer Date Recorded In [...] often do you attend chur ch or episcopal services? More than 4 times per year [...] No 06/20/2024 Housing Stability Vital Sign Answer Imnesh e Recorded In the last 12 months, was t here a time when you were not able to pay the mortgage or rent on time? No 06/20/2024 In the past 12 months, how m any times have you moved where you were living? 0 06/20/2024 At any time in the past [address] [facility], were you homeless or living in a fdc (including now)? No 06/20/2024 Personal Safety Answer Date Recorded Have you ever been in or are you currently in a harmful physical or emotional relationship or is someone making you feel afraid or unsafe? 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 Left voicemail message for patient with ID's direct office number requesting return call. STRY CONSERVATION WORKER documented in this encounter Plan of Treatment Not on file documented as of this encounter Visit Diagnoses Not on filedocumented in this encounter Care Teams Video Production Specialist Relationship Specialty Start Date End Date Julio César Briseno MD PCP - General 10/01/16 Eren Cr MD Referring Physician Medical Oncology 11/25/18 Yohana Bowen MD Radiation Oncologist Radiation Oncology 11/25/18 Alejo Mi MD [address] [address] Referring Physician Nephrology 03/07/23 documented as of this encounter
--- OUTSIDE RECORDS SUMMARY | 2024-06-26 01:51 | XMS_ITS | Encounter Summary ---
Author Organization [facility] Healthcare Address [address] [place] [address] Care Team Providers Care Gwot Ia[employer] Support Name Role Phone Julio César Briseno MD Primary Care Provider + [phone] Eren Cr MD Unavailable Yohana Bowen MD Unavailable Alejo Mi MD Unavailable [phone] Reason for Visit * Reason Comments Hypertension * Auth/Cert (Routine) Specialty Diagnoses / Procedures Referred By Evelyne t Referred To Contact Diagnoses History of malignant neuroendocrine tumor ANNE-MARIE (acute kidney injury) (HCC) 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 Procedures NA Referral ID Status Reason Start Date Expiration Date Visits Re quested Visits Authorized [id number] 1 1 Encounter Details Date Type Department Care Team (Late st Contact Info) Description 06/16/2024 2:37 PM TAX EXAMINER - 06/16/2024 3:52 PM TAX EXAMINER Surgery [facility] Operating Room [address] [place] [id number] Mela Dejesus MD [address] [place] [address] CYSTOSCOPY Surgery Details Date/Time Status Location OR [...] file Legal Sex Female 2:41 PM TAX EXAMINER Gender Identity Not on file Sexual Orientation Straight 02/19/2021 9: 29 AM CDT Occupation Industry Job Start Date Job End Date retired Not on file Not on file Not on file documented as of this encounter Last Filed Vital Signs Vital Sign Reading Time Taken Comments Blood Pressure 157/65 06/16/2024 3:50 PM TAX EXAMINER Pulse 79 06/16/2024 3:50 PM TAX EXAMINER Temperature 37 ??C (98.6 ??F) 06/16/2024 3:50 PM TAX EXAMINER Respiratory Rate 8 06/16/2024 3:50 PM TAX EXAMINER Oxygen Saturation 100% 06/16/2024 3:50 PM TAX EXAMINER Inhaled Oxygen Concentration - - Weight 75 kg (165 lb 5.5 oz) 06/16/2024 2:43 PM TAX EXAMINER Height 160 cm (5' 3 ) 06/13/2024 6:44 PM TAX EXAMINER Body Mass Index 28.34 06/19/2024 7:33 AM TAX EXAMINER documented in this encounter Medications at Time [...] 1 tablet (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) by mouth cup machine operator before breakfast 90 tablet 3 11/28/2023 lidocaine-priloca [...] Age: 73 y.o. female Admission: 06/13/2024 Bed: [id number] LOS: 6 days Subjective Interval History No [...] 40 minutes which was spent performing a poll-fu-cmta encounter and personally completing the provider-level activities documented in the note. This includes time spent prior to the visit and after the visit in direct care of the patient. This time does not include time spent in any separately reportable services. Dana Barajas MD EXAMINER * Brock Bolanos MD - 06/20/2024 10:34 [...] from IR standpoint. - F/u biopsy results EXAMINER * Dana Barajas MD - 06/19/2024 9:00 AM CST Daily Progress Note Division of Hospital Medicine Name: La Chung : 1950 Today's Date: June 19, 2024 Age: 73 y.o. female Admission: 06/13/2024 Bed: [id number] LOS: 5 days Subjective Interval History No [...] 40 minutes which was spent performing a fhgl-vz-cvnd encounter and personally completing the provider-level activities documented in the note. This includes time spent prior to the visit and after the visit in direct care of the patient. This time does not include time spent in any separately reportable services. Dana Barajas MD EXAMINER * Dana Barajas MD - 06/18/2024 10:39 AM CST Daily Progress Note Division of Hospital Medicine Name: La Chung : 1950 Today's Date: June 18, 2024 Age: 73 y.o. female Admission: 06/13/2024 Bed: [id number] LOS: 4 days Subjective Interval History No [...] the liver, omentum, bone, vaginal cuff - [facility] c/s - On [...] 40 minutes which was spent performing a ctru-sw-qogh encounter and personally completing the provider-level activities documented in the note. This includes time spent prior to the visit and after the visit in direct care of the patient. This time does not include time spent in any separately reportable services. Dana Barajas MD EXAMINER * Dana Barajas MD - 06/17/2024 3:23 PM CST Daily Progress Note Division of Hospital Medicine Name: La Chung : 1950 Today's Date: June 17, 2024 Age: 73 y.o. female Admission: 06/13/2024 Bed: [id number] LOS: 3 days Subjective Interval History Flank [...] 45 minutes which was spent performing a fqpz-ke-kcmf encounter and personally completing the provider-level activities documented in the note. This includes time spent prior to the visit and after the visit in direct care of the patient. This time does not include time spent in any separately reportable services. Dana Barajas MD EXAMINER EXAMINER EXAMINER * Dana Barajas MD - 06/16/2024 10:00 [...] the liver, omentum, bone, vaginal cuff - [facility] c/s - On [...] 45 minutes which was spent performing a wxqq-vq-hwru encounter and personally completing the provider-level activities documented in the note. This includes time spent prior to the visit and after the visit in direct care of the patient. This time does not include time spent in any separately reportable services. Dana Barajas MD EXAMINER * Pamela Bejarano, RD - 06/15/2024 4:09 [...] 18 CREATININE mg/dL 1.94* < > 2.03* ZQV-VID-ALHGQTH mL/min/1.73 m2 27* < > 25* CALCIUM [...] Type of Weight Used for Estimated Kcals: Kent Total Protein Estimated Needs (gm): 78.3 Protein Needs Based on g/k.5 Type of Weight Used for Estimated Protein : [place] Total Fluid Estimated Needs: 1827 Fluid Needs Based on : 1 ml/kcal Type of Weight Used for Estimated Fluid Needs: Kent Dietary Orders (From admission, onward) Start Ordered 06/15/24 1606 Oral Nutrition Supplements ([facility]) Select Supplement: Ensure PLUS High Protein - Any Flavor; Quantity (# of cans): 1 can All Meals Question Answer Comment ([facility]) Select Supplement: Ensure PLUS High Protein - Any Flavor Quantity (# of cans): 1 can 06/15/24 1605 06/15/24 1224 Adult Diet Regular Diet effective now Question: ([facility]) Diet type Answer: Regular 06/15/24 1223 Allergies: Reviewed. IMPRESSION: Met with patient at bedside. She reported poor PO intake for the past couple of weeks. She thinks she has lost some weight over the past month. Reports UBW of 177#. Current [facility] weight is 173#. No significant weight loss noted per [facility] records. She is interested in trying Ensure [...] Pamela Bejarano MS, RD, CNSC, LD Cell EXAMINER * Miguel Angel Martinez MD - 06/15/2024 7:25 AM CST Daily Progress Note Division of [facility] Medicine Name: La Chung : 1950 Today's Date: June 15, 2024 Age: 73 y.o. female Admission: 06/13/2024 Bed: [id number] LOS: 1 days Subjective Interval History Reports [...] the liver, omentum, bone, vaginal cuff - [facility] - On octreotide (monthly) and a clinical trial - Has upcoming liver TACE on Sat. Asking if it can be done while inpatient. Will check with IR. Code status : Full Code Diet : Adult Diet Regular PT/OT Dispo Rec : / Supplementary Attestation My total encounter time on this service date was 60 minutes which was spent performing a ykeo-zz-wyxh encounter and personally completing the provider-level activities documented in the note. This includes time spent prior to the visit and after the visit in direct care of the patient. This time does not include time spent in any separately reportable services. Miguel Angel Martinez MD EXAMINER * Yanet Howard - 06/14/2024 8:00 PM CST Pt admitted to [facility]. 2 RN skin check completed. Admitting MD notified of pt arrival and elevated BP 176/51. Pt oriented to room and unit. Ostomy bag changed with RN assistance. Fluids verified. EXAMINER documented in this encounter H&P Notes * [...] Mela Dejesus MD at 06/16/2024 1:57 PM TAX EXAMINER EXAMINER EXAMINER Source Note - File, Susana Palumbo NP - 06/15/2024 8:28 AM TAX EXAMINER Images from the original note were not [...] or concerns, please page Urology through the kiln operator. Susana Tate NP 06/15/2024 Cosigned by Pa Teran MD at 06/15/2024 1:48 PM TAX EXAMINER EXAMINER EXAMINER * Nasir Lyons MD - 06/14/2024 3:26 [...] 1 tablet (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) by mouth cup machine operator before breakfast, Disp: 90 tablet, Rfl: 3 0.9 % sodium chloride ([facility] sodium chloride 0.9%) injection, Infuse 10 [...] mg capsule, Take 1 tablet by mouth cup machine operator before breakfast (Patient not taking: Reported on [...] Reported on 01/24/2024), Disp: , Rfl: coenzyme R07-ecklebq E 100-5 mg-unit capsule, Take 1 tablet by mouth cup machine operator before breakfast(Patient not taking: Reported on 12/24/2023), [...] to MRI exam, may repeat dose if egmvbj30 minutes prior to MRI (Patient taking differently: [...] reviewed the CT report Nasir Lyons MD EXAMINER documented in this encounter Consult Notes * [...] 1 tablet (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) by mouth cup machine operator before breakfast 90 tablet 3 06/13/2024 simvastatin (ZOCOR) 20 mg tablet Take 1 tablet (20 mg total) by mouth nightly Past Week 0.9 % sodium chloride ([facility] sodium chloride 0.9%) injection Infuse 10 [...] mg capsule Take 1 tablet by mouth cup machine operator before breakfast (Patient not taking: Reported on 12/24/2023) cholecalciferol (VITAMIN D-3) 1,000 unit Take 1 tablet/capsule (1,000 Units total) by mouth daily (Patient taking differently: Take 1 tablet/capsule (1,000 Units total) by mouth every morning) 90 tablet/capsule 3 clotrimazole-betamethasone (LOTRISONE) cream Apply 1 Application topically daily as needed (rash) (Patient not taking: Reported on 01/24/2024) coenzyme S64-cfwyngf E 100-5 mg-unit capsule Take 1 tablet by mouth cup machine operator before breakfast (Patient not taking: Reported on [...] venous catheter once a week Patient to [id number] of Normal Saline via CADD Coreas pump [...] or family members viewing this note through [employer] programs. This note was written as a [...] Cano MD PhD at 06/16/2024 4:15 PM TAX EXAMINER EXAMINER EXAMINER Associated attestation - Julio César Cano MD PhD - 06/16/2024 4:15 PM TAX EXAMINER I have seen and examined the patient [...] or concerns, please page Urology through the kiln operator. Xochitl Knowles MD 06/16/2024 Cosigned by Mela Dejesus MD at 06/16/2024 1:57 PM TAX EXAMINER EXAMINER EXAMINER * File, Susana Palumbo NP - 06/15/2024 8:28 AM CSTAssociated Order(s): IP CONSULT TO UROLOGY Images from the original note were not included. Urology Consult Note Subjective Chief Complaint:R hydroureteronephrosis Requesting provider: Jaun History of Present Illness: La Chung is [...] or concerns, please page Urology through the kiln operator. Susana Tate NP 06/15/2024 Cosigned by Pa Teran MD at 06/15/2024 1:48 PM TAX EXAMINER EXAMINER EXAMINER Associated attestation - Pa Teran MD - 06/15/2024 1:48 PM TAX EXAMINER I have seen and examined the patient [...] Fonseca MSN OCN RN Inpatient Nurse Coordinator [id number] Medical Oncology EXAMINER documented in this encounter ED Notes * Anne-Marie Xiong RN - 06/14/2024 7:41 AM CST Bed: [facility] Expected date: Expected time: Means of arrival: Comments: 2-17 Anne-Marie Xiong RN 06/14/24 0741 EXAMINER * Kelton Borjas MD - 06/13/2024 10:29 [...] Diagnosis Date Noted ANNE-MARIE (acute kidney injury) ([facility]) and Mild right hydroureteronephrosis 06/14/2024 Vomiting 06/14/2024 HTN (hypertension) 06/14/2024 Anxiety 06/14/2024 High risk medication use 01/31/2024 Hypothyroidism 09/12/2023 Proctitis 04/09/2022 Thrombocytopenia (HCC) 04/09/2022 Dehydration 03/15/2022 Depressive disorder 02/15/2022 Hypomagnesemia 10/16/2021 Hearing loss 08/30/2021 Vertigo 08/30/2021 Muscle weakness 08/16/2021 Nausea 08/11/2021 Hypophosphatemia 06/14/2021 Closed displaced fracture of head of right radius 11/20/2020 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, unspecified ([facility]) 04/14/2020 Right flank pain 01/13/2020 Benign essential hypertension 01/13/2020 Blepharitis 01/13/2020 Cough 01/13/2020 Diarrhea 01/13/2020 Enthesopathy of knee 01/13/2020 Vitamin D deficiency 01/13/2020 Knee pain 01/13/2020 Low back pain 01/13/2020 Mass of ovary 01/13/2020 Osteoarthritis of knee 01/13/2020 Pure hypercholesterolemia 01/13/2020 Shoulder joint pain 01/13/2020 Epithelial hyperplasia 07/22/[address] ([facility]/HCC) (HCC) 05/14/2019 Acute blood loss anemia 04/17/2019 Hypocalcemia 04/14/2019 Stage 3b chronic kidney disease (HCC) 04/14/2019 Large bowel obstruction ([facility]/HCC) (HCC) 04/12/2019 Malignant neoplasm metastatic to [...] Conv) Occasional alcohol use : (Added by ERUCES Conv) Review of Systems Review of Systems [...] concern for elevated blood pressure and an ANEN-MARIE. She is reporting right flank pain and [...] Stu Huang MD at 06/17/2024 12:49 PM TAX EXAMINER EXAMINER EXAMINER * Susana Mon, RN - 06/13/2024 10:27 PM CST Bed: ED2-17 Expected date: 06/13/24 Expected time: 6:30 PM Means of arrival: On Foot Comments: Susana Mon RN 06/13/24 0423 EXAMINER * Marlen Andino RN - 06/13/2024 6:39 [...] by the clinic, AOx4, denies sick contacts. EXAMINER documented in this encounter Miscellaneous Notes * Plan of Care - Marcia Haynes RN - 06/20/2024 10:56 AM CST Goals: Clinical Goals for the Shift: VSS, comfort, safety Summary: VSS. Pt resting well. No c/o pain. Per pt, blood in urine has decreased. Pt agreeable to plan for d/c. Care plan ongoing. EXAMINER * Initial Assessments - Sima Agrawal LCSW [...] Agent? 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 Source: Medicare, Supplemental Race: White/ Ethnicity: Non- Gender Identity: Female Service : None (06/20/24 105) Current Situation: Current Situation Living Arrangements: Spouse/significant other Type of Residence: Private residence Income: Intermediate/Pension Education Level : High School Diploma How [...] other adult children Do you have a Moravian Preference or Affiliation?: Yes Preference/Affiliation : Buddhism Are there any Moravian Practices that are important to maintain while [...] More than three times a week Attends Moravian Services: More than 4 times per year [...] have an appointment to meet with a round boner for completion of POA. Sima Agrawal LCSW Please see [facility] Treatment Team for contact information. EXAMINER * Plan of Care - Soniya López, IRVING - 06/20/2024 6:48 AM CST Goals: Clinical Goals for the Shift: VSS, comfort, safety Summary: vitals stable, RA, potassium and magnesium replaced. No complaints of pain. EXAMINER * Plan of Care - Sis Pedraza [...] Goals for the Shift: VSS, comfort, safety EXAMINER * Post-Procedure Note - Dar Willett MD - 06/19/2024 11:15 AM TAX EXAMINER Radiology Brief Post Procedure Note Attending: Kt Operations Welder: Tamie Sedation/Anesthesia: Min Sedation Pre-Op/Pre-Procedure Diagnosis: metastatic neuroendocrine cancer Post-Op/Post-Procedure Diagnosis: same Procedure Performed: TACE posterior division of RHA Procedure Findings: same Complications: None Estimated Blood Loss: < 30 ml Specimens: None Condition: Stable Full report to follow. EXAMINER * Plan of Care - Maureen Marrufo LCSW - 06/19/2024 11:08 AM CST SW consult received for high-risk readmission (24%). Patient currently off the floor at ; therefore, SW unable to assess. SW to attempt to meet with pt to complete assessments prior to discharge. Maureen Marrufo LCSW EXAMINER * Post-Procedure Note - Dar Willett MD - 06/19/2024 8:52 AM TAX EXAMINER Radiology Brief Post Procedure Note Attending: Kt Operations Welder: Tamie Sedation/Anesthesia: Min Sedation Pre-Op/Pre-Procedure Diagnosis: neuroendocrine tumor Post-Op/Post-Procedure Diagnosis: same Procedure Performed: CT guided liver biopsy Procedure Findings: successful Complications: None Estimated Blood Loss: < 30 ml Specimens: 4 2.3 cm specimens sent to lab Condition: Stable Full report to follow. EXAMINER * Plan of Care - Nati Rousseau RN - 06/19/2024 6:13 AM CST Goals: Clinical Goals for the Shift: VSS, comfort, safety Summary: Pt stable, NPO since midnight, no complaints. EXAMINER * Plan of Care - Sis Pedraza RN - 06/18/2024 8:59 PM CST VSS. Kidney ultrasound completed. Patient denies pain. NPO @ midnight d/t TACE procedure. Plan of care ongoing. Problem: Discharge Planning Goal: Understanding discharge needs will improve Outcome: Ongoing Problem: Skin/Tissue Integrity Goal: Skin integrity remains intact Outcome: Ongoing Goals: Clinical Goals for the Shift: VSS, comfort, safety EXAMINER * Consults, Subsequent - Xochitl Knowles MD - 06/18/2024 5:56 PM TAX EXAMINER Images from the original note were not [...] or concerns, please page Urology through the kiln operator. Xochitl Knowles MD 06/18/2024 Cosigned by Mikey Barnes MD at 06/18/2024 6:09 PM TAX EXAMINER EXAMINER EXAMINER * Pre-Procedure Note - Dar Willett MD - 06/18/2024 2:31 PM TAX EXAMINER PRE-SEDATION ASSESSMENT/H&P Patient is a 73 y.o. [...] D-3) 1,000 unit clotrimazole-betamethasone (LOTRISONE) cream coenzyme N54-bxmvdwn E 100-5 mg-unit capsule denosumab (Xgeva) 120 [...] PO status: Last PO: NPO since midnight EXAMINER * Plan of Care - Nhoelia Moore RN - 06/18/2024 4:34 AM CST Goals: Clinical Goals for the Shift: VSS; Safety; Comfort Summary: VSS. PRN tylenol administered x1 for discomfort. Labs drawn and sent - K 3.2, replaced perPO. Patient still having hematuria. Patient resting in bed. Safety maintained. Care plan ongoing. EXAMINER * Plan of Care - Sis Pedraza RN - 06/17/2024 7:36 PM CST VSS. Patient denies pain. TTE completed. Plan of care ongoing. Goals: Clinical Goals for the Shift: VSS; Safety; Comfort Problem: Discharge Planning Goal: Understanding discharge needs will improve Outcome: Progressing Problem: Respiratory Goal: Achieves optimal ventilation and oxygenation Outcome: Progressing EXAMINER * Assessment & Plan Note - Dana Barajas MD - 06/17/2024 3:30 PM TAX EXAMINER Associated Problem(s): Exertional dyspnea Reports noting increased exertional dyspnea over last year or so. Nt-probnp elevated on admission - TTE with grade 1 diastolic dysfunction, thickened LV but otherwise normal systolic function EF 66% and normal valvular function EXAMINER EXAMINER EXAMINER * Plan of Care - Callie Gama [...] Patient and/or family are agreeable with plan. marketing support manager will continue to follow and assist with discharge planning as needed. If any further discharge needs arise, please contact the covering dependency case manager. EXAMINER * Consults, Subsequent - File, Susana Palumbo NP - 06/17/2024 9:00 AM TAX EXAMINER Images from the original note were not [...] or concerns, please page Urology through the kiln operator. Susana Tate NP 06/17/2024 EXAMINER * Plan of Care - Nohelia Moore RN - 06/17/2024 5:56 AM CST Goals: Clinical Goals for the Shift: VSS, rest, comfort, safety Summary: VSS. No complaints of pain. Labs drawn and sent - no replacements needed. Good urine output throughout night. Patient resting comfortably in bed. Safety maintained. Care plan ongoing. EXAMINER * Plan of Care - Angeli Spivey RN - 06/16/2024 7:14 PM CST Goals: Clinical Goals for the Shift: VSS, rest, comfort, safety Summary: VSS pt A&Ox4 on RA. Pt made NPO in morning for Urology procedure. Pt in OR for most of afternoon. Pt returned to floor at 1845, post OP vitals initiated. Pt resting in bed with safety measures inplace. EXAMINER * Op Note - Mela Dejesus MD - 06/16/2024 2:37 PM CST Operative Report SURGEON: Mela Dejesus MD SURGICAL TEAM: Radon Inspector: Amara Hernandez RN Scrub: Alessandra Petersen RN [...] bladder or urethra. We advanced a 5 ghanaian ureteral access catheter into the right ureteral orifice just to the level of the distal ureter. A retrograde pyelogram was performed which revealed a proximal ureteral obstruction with pyelovenous backflow and hydronephrosis proximal to the obstruction. Through the catheter we advanced a sensor wire to the level of the kidney under fluoroscopic guidance. Over the wire, we advanced a 6 ghanaian x 26 cm ureteral stent. Removal of [...] - ultrasound in 2 days with KUB EXAMINER EXAMINER * Plan of Care - Nohelia Moore [...] in bed. Safety maintained. Care plan ongoing. EXAMINER * Plan of Care - Angeli Spivey [...] in bed with safety measures in place. EXAMINER * Hospital Course - Miguel Angel Martinez [...] the liver, omentum, bone, vaginal cuff - [facility] c/s - On octreotide (monthly) and a clinical trial - Has upcoming liver TACE on Sat EXAMINER * Initial Assessments - Callie Gama RN - 06/15/2024 3:18 PM TAX EXAMINER CM Initial Assessment Interview Note Information Obtained [...] A/B, AARP Supplement Prescription Coverage: Yes Pharmacy: [id number] - [place], [place] - [address] [facility] [phone] [facility] - [place], [place] - [address] [facility] [address] [facility] [address] Primary Care Provider: Julio César Briseno MD [...] Collaboration with Patient, Provider, Direct Care Nurse, Parking Lot Attendant, and other members of theHealth Care Team to assure needed interventions completed. 2. Return patient to optimal level of self-care post discharge. 3. Safety Investigator will follow for Discharge Planning - interventions as needed 4. Anticipated level of care at discharge 5. Planned Discharge Disposition Callie Gama RN EXAMINER * Plan of Care - Nati Rousseau RN - 06/15/2024 6:34 AM CST Goals: Clinical Goals for the Shift: VSS, comfort, safety Summary: Pt's VSS. Vomitted a few times at beginning of shift, zofran x1. Still vomitting, made aware, EKG done compazine added given x1. Pt also having anxiety requesting ativan, made aware, atarax ordered and given x1. NPO since midnight. EXAMINER * Assessment & Plan Note - Nasir Lyons MD - 06/14/2024 3:48 PM TAX EXAMINER Associated Problem(s): Anxiety She reports taking duloxetine 30 daily for over a year. Will continue that EXAMINER * Assessment & Plan Note - Nasir Lyons MD - 06/14/2024 3:47 PM TAX EXAMINER Associated Problem(s): Hypothyroidism Home synthroid EXAMINER * Assessment & Plan Note - Dana Barajas MD - 06/14/2024 3:47 PM TAX EXAMINER Associated Problem(s): HTN (hypertension) Home amlodipine. Losartan held throughout admission due to ANNE-MARIE and blood pressure reasonably controlled on amlodipine. 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 UA not c/f infection. Might be from mild obstruction vs could have lavern stone which has passed. CT abdomen shows new mild hydroureteronephrosis possible secondary to partial obstruction from retroperitoneal adenopathy -Pain control w/ tylenol, lido patch, ok for low dose opioids. -Management as per above -pain improved with stent placement EXAMINER EXAMINER EXAMINER * Assessment & Plan Note - Dana Barajas MD - 06/14/2024 3:45 PM TAX EXAMINER Associated Problem(s): ANNE-MARIE (acute kidney injury) (HCC) [...] hematuria post stent which has now resolved EXAMINER EXAMINER EXAMINER EXAMINER EXAMINER EXAMINER EXAMINER * Assessment & Plan Note - Dana Barajas MD - 06/14/2024 3:42 PM TAX EXAMINER Associated Problem(s): Vomiting Likely related to ANNE-MARIE and R ureteral process. -Improved and tolerating oral intake -PPI IV BID->oral BID for now. -Nausea control. Pain control. EXAMINER EXAMINER EXAMINER EXAMINER * ED Re-evaluation Note - Sabrina Riggs DO - 06/14/2024 6:48 AM TAX EXAMINER ED Re-evaluation TRANSITION OF CARE: ISabrina DO, [...] patient. By: Stu Huang MD Time: 06/14 8624 Comment: CT read shows increased cancer burden [...] Prabakar, Ashley Christen, DO Resident 06/14/24 07 EXAMINER * ED Pre-Arrival Note - Mary Alva, IRVING - 06/13/2024 6:30 PM TAX EXAMINER Pre-Arrival Note Pt coming from cancer care clinic d/t hypertension. Pt presented with nausea and vomiting. Hypertensive to 220's. Coming to ED for further eval. Mary Alva, RN EXAMINER documented in this encounter Plan of Treatment Pending Results Name Type Priority Associated Diagnoses Date /Time Pro B-type natriuretic peptide Lab STAT 06/14/2024 12:23 AM TAX EXAMINER Scheduled Orders Name Type Priority Associated Diagnoses Orde r Schedule Pro B-type natriuretic peptide Lab STAT Once for 1 Occur rences starting 06/14/2024 until 06/14/2024 documented as of this encounter Procedures Procedure Name Priority Date/Time Associated Diagnosis Comments EGFR Routine 06/20/2024 12:59 AM TAX EXAMINER DIFFERENTIAL AUTO Routine 06/20/2024 12:59 AM TAX EXAMINER CBC WITH AUTO DIFFERENTIAL Routine 06/20/2024 12:59 AM TAX EXAMINER MAGNESIUM Routine 06/20/2024 12:59 AM TAX EXAMINER HEPATIC FUNCTION PANEL Routine 06/20/2024 12:59 AM TAX EXAMINER BASIC METABOLIC PANEL Routine 06/20/2024 12:59 AM TAX EXAMINER EMBOLIZATION ORGAN ISCHEMIA OR INFARCTION Schedule Routine, Read Routine (OP Routine) 06/19/2024 11:17 AM TAX EXAMINER 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) BIOPSY LIVER Schedule Routine, Read Routine (OP Routine) 06/19/2024 9:00 AM TAX EXAMINER 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) SURGICAL PATHOLOGY Routine 06/19/2024 8: 53 AM TAX EXAMINER ANNE-MARIE (acute kidney injury) (HCC) 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 History of malignant neuroendocrine tumor 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) EGFR Routine 06/19/2024 1:56 AM TAX EXAMINER DIFFERENTIAL AUTO Routine 06/19/2024 1:5 6 AM TAX EXAMINER CBC WITH AUTO DIFFERENTIAL Routine 06/19/2024 1:56 AM TAX EXAMINER MAGNESIUM Routine 06/19/2024 1:56 AM TAX EXAMINER HEPATIC FUNCTION PANEL Routine 06/19/2024 1:56 AM TAX EXAMINER BASIC METABOLIC PANEL Routine 06/19/2024 1:56 AM TAX EXAMINER US KIDNEY COMPLETE IP Routine 06/18/2024 3: 53 PM TAX EXAMINER XR ABDOMEN AP 1 VIEW IP Routine 06/18/2024 5:54 AM TAX EXAMINER EGFR Routine 06/18/2024 1:37 AM TAX EXAMINER CBC WITH AUTO DIFFERENTIAL Routine 06/18/2024 1:37 AM TAX EXAMINER MANUAL DIFFERENTIAL Routine 06/18/2024 1 :37 AM TAX EXAMINER MAGNESIUM Routine 06/18/2024 1:37 AM TAX EXAMINER HEPATIC FUNCTION PANEL Routine 06/18/2024 1:37 AM TAX EXAMINER BASIC METABOLIC PANEL Routine 06/18/2024 1:37 AM TAX EXAMINER TRANSTHORACIC ECHO (TTE) COMPLETE W DOPPLER/CF W CONTRAST Routine 06/17/2024 4:25 PM TAX EXAMINER EGFR Routine 06/17/2024 1:25 AM TAX EXAMINER CBC WITH AUTO DIFFERENTIAL Routine 06/17/2024 1:25 AM TAX EXAMINER MANUAL DIFFERENTIAL Routine 06/17/2024 1 :25 AM TAX EXAMINER MAGNESIUM Routine 06/17/2024 1:25 AM TAX EXAMINER HEPATIC FUNCTION PANEL Routine 06/17/2024 1:25 AM TAX EXAMINER BASIC METABOLIC PANEL Routine 06/17/2024 1:25 AM TAX EXAMINER FL FLUOROSCOPY < 1 HOUR IP Routine 06/16/2024 3:37 PM TAX EXAMINER PYELOGRAM - RETROGRADE 06/16/2024 3:03 PM TAX EXAMINER ANNE-MARIE (acute kidney injury) (HCC) 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 PLACEMENT STENT - URETERAL 06/16/2024 3:03 PM TAX EXAMINER ANNE-MARIE (acute kidney injury) (HCC) 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 CYSTOSCOPY 06/16/2024 3:03 PM TAX EXAMINER ANNE-MARIE (acute kidney injury) (HCC) 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 EGFR Routine 06/16/2024 12:50 AM TAX EXAMINER CBC WITH AUTO DIFFERENTIAL Routine 06/16/2024 12:50 AM TAX EXAMINER MANUAL DIFFERENTIAL Routine 06/16/2024 12:50 AM TAX EXAMINER MAGNESIUM Routine 06/16/2024 12:50 AM TAX EXAMINER HEPATIC FUNCTION PANEL Routine 06/16/2024 12:50 AM TAX EXAMINER BASIC METABOLIC PANEL Routine 06/16/2024 12:50 AM TAX EXAMINER EGFR Routine 06/15/2024 1:26 AM TAX EXAMINER CBC WITH AUTO DIFFERENTIAL Routine 06/15/2024 1:26 AM TAX EXAMINER MANUAL DIFFERENTIAL Routine 06/15/2024 1 :26 AM TAX EXAMINER MAGNESIUM Routine 06/15/2024 1:26 AM TAX EXAMINER HEPATIC FUNCTION PANEL Routine 06/15/2024 1:26 AM TAX EXAMINER BASIC METABOLIC PANEL Routine 06/15/2024 1:26 AM TAX EXAMINER ECG 12-LEAD Routine 06/14/2024 8:[address] ABDOMEN PELVIS W CONTRAST ED 06/14/2024 2:26 AM TAX EXAMINER EGFR STAT 06/14/2024 12:23 AM TAX EXAMINER DIFFERENTIAL AUTO STAT 06/14/2024 12:23 AM TAX EXAMINER PRO B-TYPE NATRIURETIC PEPTIDE STAT 06/14/2024 12:23 AM TAX EXAMINER CBC WITH AUTO DIFFERENTIAL STAT 06/14/2024 12:23 AM TAX EXAMINER COMPREHENSIVE METABOLIC PANEL STAT 06/14/2024 12:23 AM TAX EXAMINER documented in this encounter Results * (ABNORMAL) eGFR (06/20/2024 12:59 AM TAX EXAMINER) [facility] eGFR 38(L) >=60 mL/min/1. 73 m2 [...] reviewed 2021. Blood 06/20/2024 12:5 9 AM TAX EXAMINER 06/20/2024 1:19 AM TAX EXAMINER us Nasir Lyons MD LAB BLOOD ORDERABLES Mel badillo Result [facility] Department [place] [address] * (ABNORMAL) Differential, auto (06/20/2024 12:59 AM TAX EXAMINER) Neutrophil abs 5.8 1.5 - 6.5 K/cumm Imm gran abs 0.1 0.0 - 0.1 K/cumm [facility] Lymphocyte abs 2.3 0.8 - 3.3 K/cumm [facility] Monocyte abs 2.7(H) 0.2 - 0.8 K/cumm [facility] Eosinophil abs 0.0 0.0 - 0.5 K/cumm [facility] Basophil abs 0.0 0.0 - 0.1 K/cumm [facility] Neutrophil pct 52.9 % [facility] Comment: Consistent with previous result Interpretive Data Percent cell count reference ranges are not reported, since discordance with absolute values may lead to misinterpretation of CBC data. Current Interpretive Data was last revised on 2017. Imm gran pct 0.5 % [facility] Comment: Interpretive Data Percent cell count reference ranges are not reported, since discordance with absolute values may lead to misinterpretation of CBC data. Current Interpretive Data was last revised on 2017. Lymphocyte pct 21.0 % [facility] Comment: Interpretive Data Percent cell count reference ranges are not reported, since discordance with absolute values may lead to misinterpretation of CBC data. Current Interpretive Data was last revised on 2017. Monocyte pct 24.9 % [facility] Comment: Interpretive Data Percent cell count reference ranges are not reported, since discordance with absolute values may lead to misinterpretation of CBC data. Current Interpretive Data was last revised on 2017. Eosinophil pct 0.3 % [facility] Comment: Interpretive Data Percent cell count reference ranges are not reported, since discordance with absolute values may lead to misinterpretation of CBC data. Current Interpretive Data was last revised on 2017. Basophil pct 0.4 % [facility] Comment: Interpretive Data Percent cell count reference ranges are not reported, since discordance with absolute values may lead to misinterpretation of CBC data. Current Interpretive Data was last revised on 2017. Blood 06/20/2024 12:5 9 AM TAX EXAMINER 06/20/2024 1:20 AM TAX EXAMINER Nasir Lyons MD LAB BLOOD ORDERABLES Mel l Result [facility] Department [place] [address] * Magnesium (06/20/2024 12:59 AM TAX EXAMINER) Magnesium 1.4 1.4 - 2.5 mg/dL Blood 06/20/2024 12:5 9 AM TAX EXAMINER 06/20/2024 1:19 AM TAX EXAMINER Nasir Lyons MD LAB BLOOD ORDERABLES Mel l Result Performing Organization Address [facility] Co de Phone Number [facility] [place] [address] * (ABNORMAL) Hepatic function panel (06/20/2024 12:59 AM TAX EXAMINER) [facility] Bilirubin, total 0.6 0.1 - 1.2 mg/dL Bilirubin, direct <0.2 0.1 - 0.3 mg/dL [facility] Protein, pl 6.2(L) 6.5 - 8.5 g/dL [facility] Albumin 3.8 3.5 - 5.0 g/dL [facility] Alk phos 85 40 - 130 Units/L [facility] ALT 164(H) 7 - 45 Units/L [facility] Comment:Reviewed AST 433(H) 10 - 45 Units/L [facility] Comment:Reviewed Blood 06/20/2024 12:5 9 AM TAX EXAMINER 06/20/2024 1:19 AM TAX EXAMINER Nasir Lyons MD LAB BLOOD ORDERABLES Mel l Result Performing Organization Address [facility] de Phone Number [facility] Department [place] [address] * (ABNORMAL) CBC with auto differential (06/20/2024 12:59 AM TAX EXAMINER) [facility] WBC 11.0(H) 3.8 - 9.9 K/cumm Hgb 10.8(L) 11.9 - 15.5 g/dL [facility] Hct 33.7(L) 35.6 - 45.5 % [facility] Plt 133(L) 150 - 400 K/cumm [facility] MPV 10.2 9.1 - 12.3 fL [facility] RBC 3.45(L) 3.90 - 5.20 M/cumm [facility] MCV 97.7(H) 81.3 - 96.4 fL [facility] MCH 31.3 27.1 - 33.3 pg [facility] MCHC 32.0(L) 32.3 - 35.7 g/dL [facility] RDW CV 14.6 11.1 - 14.9 % [facility] RDW SD 52.6(H) 35.7 - 48.1 fL [facility] NRBC abs 0.00 0.00 - 0.01 K/cumm [facility] Blood 06/20/2024 12:5 9 AM TAX EXAMINER 06/20/2024 1:20 AM TAX EXAMINER us Nasir Lyons MD LAB BLOOD ORDERABLES Mel l Result [facility] Department [place] [address] * (ABNORMAL) Basic metabolic panel (06/20/2024 12:59 AM TAX EXAMINER) [facility] Sodium 138 135 - 145 mmol/L Potassium, pl 3.5 3.3 - 4.9 mmol/L [facility] Chloride 105 97 - 110 mmol/L [facility] CO2 25 22 - 32 mmol/L [facility] Anion gap 8 2 - 15 mmol/L [facility] BUN 12 6 - 25 mg/dL [facility] Creatinine 1.44(H) 0.60 - 1.10 mg/dL [facility] Glucose 123 70 - 199 mg/dL [facility] Calcium 8.1(L) 8.5 - 10.3 mg/dL [facility] Blood 06/20/2024 12:5 9 AM TAX EXAMINER 06/20/2024 1:19 AM TAX EXAMINER us Nasir Lyons MD LAB BLOOD ORDERABLES Mel aby Result [facility] Department [place] [address] * IR Embolization Tumor Organ Ischemia or Infarction (06/19/2024 11:17 AM TAX EXAMINER) Anatomical Region Laterality Modality Body N/A X-Ray Angiograph y 06/19/2024 4:13 PM TAX EXAMINER Impressions 06/19/2024 4:15 PM TAX EXAMINER Successful diagnostic angiography and chemo-embolization of the right posterior liver using 25 mg doxorubicin and Ethiodol and Gelfoam. PLAN: Interventional radiology will coordinate outpatient follow-up. Dictated by: Dar Willett M.D. The radiology attending physician has personally reviewed this study, and had reviewed and/or edited this written report and agrees with it. Electronically signed by: Mikey Meraz M.D. Narrative 06/19/2024 4:15 PM TAX EXAMINER EXAMINATION: ??DIAGNOSTIC VISCERAL ANGIOGRAPHY AND TRANSARTERIAL CHEMOEMBOLIZATION [...] was obtained. Prior to beginning the procedure, Bradshaw Protocol was performed to confirm the patient's [...] the patent vessel was recorded. A 6 Mongolian sheath was placed and connected to a heparinized saline drip. Using fluoroscopic guidance, the following arteries were catheterized and selective diagnostic angiograms were performed: Common hepatic artery with Nancy CT Posterior division of the right hepatic artery (3rd order) The equipment used for catheterization was 5 Mongolian LEV catheter and a Glidewire. ??The equipment used for selective catheterization was 2.7-Mongolian Progreat catheter and a fathom wire. The [...] was obtained. Prior to beginning the procedure, Bradshaw Protocol was performed to confirm the patient's [...] the patent vessel was recorded. A 6 Mongolian sheath was placed and connected to a heparinized saline drip. Using fluoroscopic guidance, the following arteries were catheterized and selective diagnostic angiograms were performed: Common hepatic artery with Nancy CT Posterior division of the right hepatic artery (3rd order) The equipment used for catheterization was 5 Mongolian LEV catheter and a Glidewire. The equipment used for selective catheterization was 2.7-Mongolian Progreat catheter and a fathom wire. The [...] * IR Biopsy Liver (06/19/2024 9:00 AM TAX EXAMINER) Anatomical Region Laterality Modality Body N/A Computed Tomogra phy 06/19/2024 4:01 PM TAX EXAMINER Impressions 06/19/2024 4:10 PM TAX EXAMINER Successful image-guided core biopsy of a segment IVb hepatic lesion. PLAN: Patient will proceed to the interventional radiology area for chemoembolization. Dictated by: Dar Willett M.D. The radiology attending physician has personally reviewed this study, and had reviewed and/or edited this written report and agrees with it. Electronically signed by: Mikey Meraz M.D. Narrative 06/19/2024 4:10 PM TAX EXAMINER EXAMINATION: IMAGE-GUIDED BIOPSY OF LIVER HISTORY/INDICATION: 73-year-old [...] was obtained. Prior to beginning the procedure, Bradshaw Protocol was performed to confirm the patient's [...] was obtained. Prior to beginning the procedure, Bradshaw Protocol was performed to confirm the patient's [...] radiology area for chemoembolization. Dictated by: Dar iWllett M.D. The radiology attending physician has personally reviewed this study, and had reviewed and/or edited this written report and agrees with it. Electronically signed by: Mikey Meraz M.D. Mikey Meraz MD [facility] IR PROCEDURES Mel l Result * Surgical pathology (06/19/2024 8:53 AM TAX EXAMINER) Tissue (Soft tissue biopsy) 06/19/2024 8:53 AM TAX EXAMINER Narrative PATHOLOGY [facility] - 06/23/2024 3:41 PM TAX EXAMINER EPIC results best viewed via link to PDF [facility] of Surgical Pathology [address], [place] [address] Note to Patients: This report may contain [...] Gender: ??F : ??1950 (Age: 73) Address: ??[facility] [address], [place], [place] ??[address] Hospital #: ??[id number] Taken:06/19/2024 Received:06/19/2024 Reported: 06/23/2024 Patient Type: [facility] Inpatient ?? Service: Oncology Location: [facility] ??[id number] Physician(s): ??MD Julio César Serrato M.D. Diagnosis: [...] Surgical Pathology and Flow Cytometry Departments at [facility] as part of an ongoing design quality engineer program and in compliance with [...] Surgical Pathology and Flow Cytometry Departments of [facility]. ??It has not been cleared or approved by the U. S. Food and Drug Administration. IMAGES AND SCANNED DOCUMENTS, IF INCLUDED, ONLY VIEWABLE IN PDF VERSION OF REPORT Dana Barajas MD LAB PATHOLOGY ORDERABLES Fin al Result PATHOLOGY [facility] 3rd Floor [place], [place] [phone] * (ABNORMAL) eGFR (06/19/2024 1:56 AM TAX EXAMINER) eGFR 37(L) >=60 mL/min/1. 73 m2 Comment: [...] last reviewed 2021. Blood 06/19/2024 1:56 AM TAX EXAMINER 06/19/2024 2:31 AM TAX EXAMINER us Nasir Lyons MD LAB BLOOD ORDERABLES Mel badillo Result [facility] Department [place] [address] * (ABNORMAL) Differential, auto (06/19/2024 1:56 AM TAX EXAMINER) Neutrophil abs 2.1 1.5 - 6.5 K/cumm Imm gran abs 0.0 0.0 - 0.1 K/cumm [facility] Lymphocyte abs 2.7 0.8 - 3.3 K/cumm [facility] Monocyte abs 4.0(H) 0.2 - 0.8 K/cumm [facility] Eosinophil abs 0.1 0.0 - 0.5 K/cumm [facility] Basophil abs 0.0 0.0 - 0.1 K/cumm [facility] Neutrophil pct 23.5 % [facility] Comment: Confirmed by smear review Interpretive Data Percent cell count reference ranges are not reported, since discordance with absolute values may lead to misinterpretation of CBC data. Current Interpretive Data was last revised on 2017. Imm gran pct 0.3 % [facility] Comment: Interpretive Data Percent cell count reference ranges are not reported, since discordance with absolute values may lead to misinterpretation of CBC data. Current Interpretive Data was last revised on 2017. Lymphocyte pct 30.2 % [facility] Comment: Interpretive Data Percent cell count reference ranges are not reported, since discordance with absolute values may lead to misinterpretation of CBC data. Current Interpretive Data was last revised on 2017. Monocyte pct 44.4 % [facility] Comment: Interpretive Data Percent cell count reference ranges are not reported, since discordance with absolute values may lead to misinterpretation of CBC data. Current Interpretive Data was last revised on 2017. Eosinophil pct 1.3 % [facility] Comment: Interpretive Data Percent cell count reference ranges are not reported, since discordance with absolute values may lead to misinterpretation of CBC data. Current Interpretive Data was last revised on 2017. Basophil pct 0.3 % [facility] Comment: Interpretive Data Percent cell count reference ranges are not reported, since discordance with absolute values may lead to misinterpretation of CBC data. Current Interpretive Data was last revised on 2017. Blood 06/19/2024 1:56 AM TAX EXAMINER 06/19/2024 2:32 AM TAX EXAMINER Nasir Lyons MD LAB BLOOD ORDERABLES Mel badillo Result [facility] Department [place] [address] * Magnesium (06/19/2024 1:56 AM TAX EXAMINER) Magnesium 1.6 1.4 - 2.5 mg/dL Blood 06/19/2024 1:56 AM TAX EXAMINER 06/19/2024 2:31 AM TAX EXAMINER Nasir Lyons MD LAB BLOOD ORDERABLES Mel l Result Performing Organization Address [facility] Co de Phone Number [facility] [place] [address] * (ABNORMAL) Hepatic function panel (06/19/2024 1:56 AM TAX EXAMINER) [facility] Bilirubin, total 0.4 0.1 - 1.2 mg/dL Bilirubin, direct <0.2 0.1 - 0.3 mg/dL [facility] Protein, pl 5.9(L) 6.5 - 8.5 g/dL [facility] Albumin 3.5 3.5 - 5.0 g/dL [facility] Alk phos 61 40 - 130 Units/L [facility] ALT 5(L) 7 - 45 Units/L [facility] AST 21 10 - 45 Units/L [facility] Blood 06/19/2024 1:56 AM TAX EXAMINER 06/19/2024 2:31 AM TAX EXAMINER Nasir Lyons MD LAB BLOOD ORDERABLES Mel l Result Performing Organization Address [facility] Co de Phone Number [facility] [place] [place] [address] * (ABNORMAL) CBC with auto differential (06/19/2024 1:56 AM TAX EXAMINER) [facility] WBC 9.1 3.8 - 9.9 K/cumm Hgb 10.1(L) 11.9 - 15.5 g/dL [facility] Hct 31.7(L) 35.6 - 45.5 % [facility] Plt 148(L) 150 - 400 K/cumm [facility] MPV 10.9 9.1 - 12.3 fL [facility] RBC 3.24(L) 3.90 - 5.20 M/cumm [facility] MCV 97.8(H) 81.3 - 96.4 fL [facility] MCH 31.2 27.1 - 33.3 pg [facility] MCHC 31.9(L) 32.3 - 35.7 g/dL [facility] RDW CV 14.3 11.1 - 14.9 % [facility] RDW SD 51.9(H) 35.7 - 48.1 fL [facility] NRBC abs 0.00 0.00 - 0.01 K/cumm [facility] Blood 06/19/2024 1:56 AM TAX EXAMINER 06/19/2024 2:32 AM TAX EXAMINER us Nasir Lyons MD LAB BLOOD ORDERABLES Mel l Result [facility] Department [place] [address] * (ABNORMAL) Basic metabolic panel (06/19/2024 1:56 AM TAX EXAMINER) Sodium 141 135 - 145 mmol/L Potassium, pl 3.8 3.3 - 4.9 mmol/L [facility] Chloride 107 97 - 110 mmol/L [facility] CO2 24 22 - 32 mmol/L [facility] Anion gap 10 2 - 15 mmol/L [facility] BUN 14 6 - 25 mg/dL [facility] Creatinine 1.48(H) 0.60 - 1.10 mg/dL [facility] Glucose 121 70 - 199 mg/dL [facility] Calcium 8.4(L) 8.5 - 10.3 mg/dL [facility] Blood 06/19/2024 1:56 AM TAX EXAMINER 06/19/2024 2:31 AM TAX EXAMINER us Nasir Lyons MD LAB BLOOD ORDERABLES Mel badillo Result [facility] Department [place] [address] * US Kidney Complete (06/18/2024 3:53 PM TAX EXAMINER) Anatomical Region Laterality Modality Kidney N/A Ultrasound 06/18/2024 3:55 PM TAX EXAMINER Impressions 06/18/2024 4:09 PM TAX EXAMINER 1. ??No hydronephrosis. ??Previously described right-sided hydronephrosis has resolved. 2. ??Normal renal echogenicity. Dictated by: Greyson Anthony M.D. The radiology attending physician has personally reviewed this study, and had reviewed and/or edited this written report and agrees with it. Electronically signed by: Immanuel Bennett M.D. Narrative 06/18/2024 4:09 PM TAX EXAMINER EXAMINATION: COMPLETE RENAL SONOGRAM HISTORY: ??Metastatic neuroendocrine [...] Abdomen Ap 1 Vw (06/18/2024 5:54 AM TAX EXAMINER) Anatomical Region Laterality Modality Body, Abdomen N/A Computed Radiogr aphy 06/18/2024 11:3 4 AM TAX EXAMINER Impressions 06/18/2024 11:44 AM TAX EXAMINER A single view of the abdomen is [...] Brock Malik M.D. Narrative 06/18/2024 11:44 AM TAX EXAMINER EXAMINATION: Abdomen, one view. HISTORY: Check stent [...] * (ABNORMAL) Manual Differential (06/18/2024 1:37 AM TAX EXAMINER) Differential Manual Cells Counted 114 [facility] Neutrophil abs 3.2 1.5 - 6.5 K/cumm [facility] Imm gran abs 0.0 0.0 - 0.1 K/cumm [facility] Lymphocyte abs 4.8(H) 0.8 - 3.3 K/cumm [facility] Monocyte abs 1.0(H) 0.2 - 0.8 K/cumm [facility] Neutrophil pct 36.0 % [facility] Comment: Interpretive Data Percent cell count reference ranges are not reported, since discordance with absolute values may lead to misinterpretation of CBC data. Current Interpretive Data was last revised on 2017. Lymphocyte pct 53.5 % [facility] Comment: Interpretive Data Percent cell count reference ranges are not reported, since discordance with absolute values may lead to misinterpretation of CBC data. Current Interpretive Data was last revised on 2017. Monocyte pct 10.5 % [facility] Comment: Interpretive Data Percent cell count reference ranges are not reported, since discordance with absolute values may lead to misinterpretation of CBC data. Current Interpretive Data was last revised on 2017. Blood 06/18/2024 1:37 AM TAX EXAMINER 06/18/2024 2:16 AM TAX EXAMINER us Nasir Lyons MD LAB BLOOD ORDERABLES Mel badillo Result [facility] Department [place] [address] * (ABNORMAL) eGFR (06/18/2024 1:37 AM TAX EXAMINER) eGFR 33(L) >=60 mL/min/1. 73 m2 Comment: [...] last reviewed 2021. Blood 06/18/2024 1:37 AM TAX EXAMINER 06/18/2024 2:11 AM TAX EXAMINER Nasir Lyons MD LAB BLOOD ORDERABLES Mel l Result [facility] Department of Laboratories [place], [place] [id number] * Magnesium (06/18/2024 1:37 AM TAX EXAMINER) Pathologist [facility] Magnesium 1.6 1.4 - 2.5 mg/dL Blood 06/18/2024 1:37 AM TAX EXAMINER 06/18/2024 2:11 AM TAX EXAMINER us Nasir Silvano Serena MD LAB BLOOD ORDERABLES Mel l Result Performing Organization Address [facility] Hospital/ZIP Co de Phone Number [facility] [place] [address] * (ABNORMAL) Hepatic function panel (06/18/2024 1:37 AM TAX EXAMINER) [facility] Bilirubin, total 0.5 0.1 - 1.2 mg/dL Bilirubin, direct <0.2 0.1 - 0.3 mg/dL [facility] Protein, pl 6.0(L) 6.5 - 8.5 g/dL [facility] Albumin 3.7 3.5 - 5.0 g/dL [facility] Alk phos 62 40 - 130 Units/L [facility] ALT 11 7 - 45 Units/L [facility] AST 24 10 - 45 Units/L [facility] Blood 06/18/2024 1:37 AM TAX EXAMINER 06/18/2024 2:11 AM TAX EXAMINER Nasir Lyons MD LAB BLOOD ORDERABLES Mel l Result Performing Organization Address [facility] Co de Phone Number [facility] [place] [address] * (ABNORMAL) CBC with auto differential (06/18/2024 1:37 AM TAX EXAMINER) [facility] WBC 9.0 3.8 - 9.9 K/cumm Hgb 10.2(L) 11.9 - 15.5 g/dL [facility] Hct 32.0(L) 35.6 - 45.5 % [facility] Plt 155 150 - 400 K/cumm [facility] MPV 10.4 9.1 - 12.3 fL [facility] RBC 3.28(L) 3.90 - 5.20 M/cumm [facility] MCV 97.6(H) 81.3 - 96.4 fL [facility] MCH 31.1 27.1 - 33.3 pg [facility] MCHC 31.9(L) 32.3 - 35.7 g/dL [facility] RDW CV 14.6 11.1 - 14.9 % [facility] RDW SD 52.8(H) 35.7 - 48.1 fL [facility] NRBC abs 0.00 0.00 - 0.01 K/cumm [facility] Blood 06/18/2024 1:37 AM TAX EXAMINER 06/18/2024 2:13 AM TAX EXAMINER us Nasir Lyons MD LAB BLOOD ORDERABLES Mel badillo Result [facility] Department [place] [address] * (ABNORMAL) Basic metabolic panel (06/18/2024 1:37 AM TAX EXAMINER) Sodium 141 135 - 145 mmol/L Potassium, pl 3.2(L) 3.3 - 4.9 mmol/L [facility] Chloride 107 97 - 110 mmol/L [facility] CO2 26 22 - 32 mmol/L [facility] Anion gap 8 2 - 15 mmol/L [facility] BUN 14 6 - 25 mg/dL [facility] Creatinine 1.62(H) 0.60 - 1.10 mg/dL [facility] Glucose 95 70 - 199 mg/dL [facility] Calcium 8.1(L) 8.5 - 10.3 mg/dL [facility] Blood 06/18/2024 1:37 AM TAX EXAMINER 06/18/2024 2:11 AM TAX EXAMINER us Nasir Lyons MD LAB BLOOD ORDERABLES Mel badillo Result [facility] Department [place] [address] * TRANSTHORACIC ECHO (TTE) COMPLETE W DOPPLER/CF W CONTRAST (06/17/2024 4:25 PM TAX EXAMINER) LV EF 66 % CARDIOREPORT Anatomical Region Laterality Modality Ultrasound 06/17/2024 3:00 PM TAX EXAMINER Narrative 06/17/2024 5:02 PM TAX EXAMINER Patient name: La Chung Date of test: 06/17/2024 Type of test: TTE w/Doppler Hospital #: 0 Date of : 1950 (F) Securities Teller: MICHAEL Blankenship Referring Physician: DANA BARAJAS MD Contrast Agent: 1.1 ml Optison Administered, (1.9 ml wasted). Contrast Administered by: Supervised/Interpreted by: Parth ??MD April Diagnosis: Location: [facility] Reason for test: Shortness of Breath [...] 2=Hypo 3=Akinetic 4=Dyskin./Aneurysm 0=Not visualized) Parasternal Long Fessenden:MAS=1 BAS=1 MIL=1 ALLEY=1 Parasternal Short Fessenden:MAS=1 MIS=1 OR=1 MIL=1 MAL=1 MA=1 Apical 4 Chambers:=1 MIS=1 BIS=1 BAL=1 MAL=1 AL=1 AC=1 Apical 2 Chambers:AI=1 OR=1 BI=1 BA=1 MA=1 AA=1 AC=1 LV Global Longitudinal Strain: -16% ??(Normal <-17%) RV Global Longitudinal Strain: LV Function: Normal LV Ejection Fraction, ??(EF=54-74%) RV Function: Normal Septal Motion: Normal Pericardial Effusion: trace Atrial Septum: Normal DOPPLER/COLOR FLOW DOPPLER RESULTS: Diastolic Function: Grade I, altered relax. w/N. LA pres. Tricuspid Valve: normal TV Pulmonic Valve: Mild VA AV Regurgitation: No AR seen AV Stenosis: [...] no , no MS, normal TV, Mild VA. Diastolic function: Grade I, altered relax. w/N. [...] April By signing this report, the attending head sampler certifies that he or she has personally supervised and interpreted the echocardiogram and has reviewed and or edited and agrees with the written comments contained within the report. Procedure Note Parth Chen MD - 06/17/2024 Patient name: La Chung Date of test: 06/17/2024 Type of test: [facility] #: 0 Date of : 1950 (F) Securities Teller: MICHAEL Blankenship Referring Physician: DANA BARAJAS MD Contrast Agent: 1.1 ml Optison Administered, (1.9 ml wasted). Contrast Administered by: Supervised/Interpreted by: Parth Chen MD Diagnosis: Location: [facility] Reason for test: Shortness of Breath [...] 2=Hypo 3=Akinetic 4=Dyskin./Aneurysm 0=Not visualized) Parasternal Long Fessenden:MAS=1 BAS=1 MIL=1 ALLEY=1 Parasternal Short Fessenden:MAS=1 MIS=1 OR=1 MIL=1 MAL=1 MA=1 Apical 4 Chambers:=1 MIS=1 BIS=1 BAL=1 MAL=1 AL=1 AC=1 Apical 2 Chambers:AI=1 OR=1 BI=1 BA=1 MA=1 AA=1 AC=1 LV Global Longitudinal Strain: -16% (Normal <-17%) RV Global Longitudinal Strain: LV Function: Normal LV Ejection Fraction, (EF=54-74%) RV Function: Normal Septal Motion: Normal Pericardial Effusion: trace Atrial Septum: Normal DOPPLER/COLOR FLOW DOPPLER RESULTS: Diastolic Function: Grade I, altered relax. w/N. LA pres. Tricuspid Valve: normal TV Pulmonic Valve: Mild VA AV Regurgitation: No AR seen AV Stenosis: [...] no , no MS, normal TV, Mild VA. Diastolic function: Grade I, altered relax. w/N. [...] MD By signing this report, the attending head sampler certifies that he or she has personally supervised and interpreted the echocardiogram and has reviewed and or edited and agrees with the written comments contained within the report. us Dana Barajas MD CV ECHO PROCEDURES Final Res ult * (ABNORMAL) Manual Differential (06/17/2024 1:25 AM TAX EXAMINER) Differential Manual Cells Counted 126 [facility] Neutrophil abs 2.8 1.5 - 6.5 K/cumm [facility] Imm gran abs 0.1 0.0 - 0.1 K/cumm [facility] Lymphocyte abs 6.9(H) 0.8 - 3.3 K/cumm [facility] Monocyte abs 1.5(H) 0.2 - 0.8 K/cumm [facility] Neutrophil pct 24.6 % [facility] Comment: Interpretive Data Percent cell count reference ranges are not reported, since discordance with absolute values may lead to misinterpretation of CBC data. Current Interpretive Data was last revised on 2017. Lymphocyte pct 60.3 % [facility] Comment: Interpretive Data Percent cell count reference ranges are not reported, since discordance with absolute values may lead to misinterpretation of CBC data. Current Interpretive Data was last revised on 2017. Monocyte pct 13.5 % [facility] Comment: Interpretive Data Percent cell count reference ranges are not reported, since discordance with absolute values may lead to misinterpretation of CBC data. Current Interpretive Data was last revised on 2017. Metamyelocyte pct 0.8 % [facility] Variant lymph pct 0.8 % [facility] Blood 06/17/2024 1:25 AM TAX EXAMINER 06/17/2024 1:54 AM TAX EXAMINER us Nasir Lyons MD LAB BLOOD ORDERABLES Mel badillo Result Performing Organization Address City/State/[facility] Co de Phone Number [facility] Department [place] [address] * (ABNORMAL) eGFR (06/17/2024 1:25 AM TAX EXAMINER) eGFR 32(L) >=60 mL/min/1. 73 m2 Comment: [...] last reviewed 2021. Blood 06/17/2024 1:25 AM TAX EXAMINER 06/17/2024 1:49 AM TAX EXAMINER Nasir Lyons MD LAB BLOOD ORDERABLES Mel l Result Performing Organization Address [facility] Co de Phone Number [facility] Department [place] [address] * Magnesium (06/17/2024 1:25 AM TAX EXAMINER) Pathologist [facility] [place] Magnesium 1.8 1.4 - 2.5 mg/dL Blood 06/17/2024 1:25 AM TAX EXAMINER 06/17/2024 1:49 AM TAX EXAMINER Nasir Lyons MD LAB BLOOD ORDERABLES Mel l Result Performing Organization Address [facility] Co de Phone Number [facility] [place] [place] [address] * Hepatic function panel (06/17/2024 1:25 AM TAX EXAMINER) Bilirubin, total 0.6 0.1 - 1.2 mg/dL Bilirubin, direct <0.2 0.1 - 0.3 mg/dL [facility] Comment:Reviewed Protein, pl 6.6 6.5 - 8.5 g/dL [facility] Albumin 3.9 3.5 - 5.0 g/dL [facility] Alk phos 75 40 - 130 Units/L [facility] ALT 11 7 - 45 Units/L [facility] AST 25 10 - 45 Units/L [facility] Blood 06/17/2024 1:25 AM TAX EXAMINER 06/17/2024 1:49 AM TAX EXAMINER aNsir Lyons MD LAB BLOOD ORDERABLES Mel l Result [facility] Department [place] [address] * (ABNORMAL) CBC with auto differential (06/17/2024 1:25 AM TAX EXAMINER) Pathologist [facility] [place] WBC 11.3(H) 3.8 - 9.9 K/cumm Hgb 11.4(L) 11.9 - 15.5 g/dL [facility] Hct 35.1(L) 35.6 - 45.5 % [facility] Plt 156 150 - 400 K/cumm [facility] MPV 10.1 9.1 - 12.3 fL [facility] RBC 3.62(L) 3.90 - 5.20 M/cumm [facility] MCV 97.0(H) 81.3 - 96.4 fL [facility] MCH 31.5 27.1 - 33.3 pg [facility] MCHC 32.5 32.3 - 35.7 g/dL [facility] RDW CV 14.6 11.1 - 14.9 % [facility] RDW SD 52.3(H) 35.7 - 48.1 fL [facility] NRBC abs 0.00 0.00 - 0.01 K/cumm [facility] Blood 06/17/2024 1:25 AM TAX EXAMINER 06/17/2024 1:50 AM TAX EXAMINER Nasir Lyons MD LAB BLOOD ORDERABLES Mel l Result [facility] Department [place] [address] * (ABNORMAL) Basic metabolic panel (06/17/2024 1:25 AM TAX EXAMINER) Sodium 142 135 - 145 mmol/L Potassium, pl 3.6 3.3 - 4.9 mmol/L [facility] Chloride 107 97 - 110 mmol/L [facility] CO2 22 22 - 32 mmol/L [facility] Anion gap 13 2 - 15 mmol/L [facility] BUN 15 6 - 25 mg/dL [facility] Creatinine 1.65(H) 0.60 - 1.10 mg/dL [facility] Glucose 107 70 - 199 mg/dL [facility] [...] Calcium 8.3(L) 8.5 - 10.3 mg/dL [facility] Blood 06/17/2024 1:25 AM TAX EXAMINER 06/17/2024 1:49 AM TAX EXAMINER us Nasir Lyons MD LAB BLOOD ORDERABLES Mel l Result [facility] Department [place] [address] * [place] Fluoroscopy < 1 Hour (06/16/2024 3:37 PM TAX EXAMINER) Narrative [facility] - 06/16/2024 3:37 PM TAX EXAMINER The images from this study are not interpreted by Radiology. ??Please refer to the physician's procedure / OR operative note. us Mela Dejesus MD IMG FLUOROSCOPY PROCEDURE S Final Result [facility] * (ABNORMAL) Manual Differential (06/16/2024 12:50 AM TAX EXAMINER) Differential Manual Cells Counted 124 [facility] Neutrophil abs 1.9 1.5 - 6.5 K/cumm [facility] Imm gran abs 0.0 0.0 - 0.1 K/cumm [facility] Lymphocyte abs 8.0(H) 0.8 - 3.3 K/cumm [facility] Monocyte abs 1.3(H) 0.2 - 0.8 K/cumm [facility] Neutrophil pct 16.9 % [facility] Comment: Interpretive Data Percent cell count reference ranges are not reported, since discordance with absolute values may lead to misinterpretation of CBC data. Current Interpretive Data was last revised on 2017. Lymphocyte pct 71.8 % [facility] Comment: Interpretive Data Percent cell count reference ranges are not reported, since discordance with absolute values may lead to misinterpretation of CBC data. Current Interpretive Data was last revised on 2017. Monocyte pct 11.3 % [facility] Comment: Interpretive Data Percent cell count reference ranges are not reported, since discordance with absolute values may lead to misinterpretation of CBC data. Current Interpretive Data was last revised on 2017. Blood 06/16/2024 12:5 0 AM TAX EXAMINER 06/16/2024 3:05 AM TAX EXAMINER us Nasir Lyons MD LAB BLOOD ORDERABLES Mel l Result [facility] Department [place] [address] * (ABNORMAL) eGFR (06/16/2024 12:50 AM TAX EXAMINER) eGFR 26(L) >=60 mL/min/1. 73 m2 Comment: [...] reviewed 2021. Blood 06/16/2024 12:5 0 AM TAX EXAMINER 06/16/2024 1:22 AM TAX EXAMINER us Nasir Lyons MD LAB BLOOD ORDERABLES Mel l Result Performing Organization Address [facility] de Phone Number [facility] Department [place] [address] * Magnesium (06/16/2024 12:50 AM TAX EXAMINER) Magnesium 1.9 1.4 - 2.5 mg/dL Blood 06/16/2024 12:5 0 AM TAX EXAMINER 06/16/2024 1:22 AM TAX EXAMINER Nasir Lyons MD LAB BLOOD ORDERABLES Mel l Result Performing Organization Address [facility] de Phone Number [facility] Department [place] [address] * (ABNORMAL) Hepatic function panel (06/16/2024 12:50 AM TAX EXAMINER) [facility] Bilirubin, total 0.8 0.1 - 1.2 mg/dL Bilirubin, direct 0.2 0.1 - 0.3 mg/dL [facility] Comment:Reviewed Protein, pl 6.3(L) 6.5 - 8.5 g/dL [facility] Albumin 4.1 3.5 - 5.0 g/dL [facility] Alk phos 71 40 - 130 Units/L [facility] ALT 9 7 - 45 Units/L [facility] AST 26 10 - 45 Units/L [facility] Blood 06/16/2024 12:5 0 AM TAX EXAMINER 06/16/2024 1:22 AM TAX EXAMINER Nasir Lyons MD LAB BLOOD ORDERABLES Mel badillo Result [facility] Department [place] [address] * (ABNORMAL) CBC with auto differential (06/16/2024 12:50 AM TAX EXAMINER) [facility] WBC 11.2(H) 3.8 - 9.9 K/cumm Hgb 11.0(L) 11.9 - 15.5 g/dL [facility] Hct 35.0(L) 35.6 - 45.5 % [facility] Plt 149(L) 150 - 400 K/cumm [facility] MPV 10.1 9.1 - 12.3 fL [facility] RBC 3.53(L) 3.90 - 5.20 M/cumm [facility] MCV 99.2(H) 81.3 - 96.4 fL [facility] MCH 31.2 27.1 - 33.3 pg [facility] MCHC 31.4(L) 32.3 - 35.7 g/dL [facility] RDW CV 15.0(H) 11.1 - 14.9 % [facility] RDW SD 54.4(H) 35.7 - 48.1 fL [facility] NRBC abs 0.00 0.00 - 0.01 K/cumm [facility] Blood 06/16/2024 12:5 0 AM TAX EXAMINER 06/16/2024 1:22 AM TAX EXAMINER Nasir Lyons MD LAB BLOOD ORDERABLES Mel l Result Performing Organization Address City/[facility]/ZIP Co de Phone Number [facility] Department [place] [address] * (ABNORMAL) Basic metabolic panel (06/16/2024 12:50 AM TAX EXAMINER) [facility] Sodium 141 135 - 145 mmol/L Potassium, pl 4.0 3.3 - 4.9 mmol/L [facility] Chloride 108 97 - 110 mmol/L [facility] CO2 22 22 - 32 mmol/L [facility] Anion gap 11 2 - 15 mmol/L [facility] BUN 17 6 - 25 mg/dL [facility] Creatinine 1.97(H) 0.60 - 1.10 mg/dL [facility] Glucose 107 70 - 199 mg/dL [facility] [...] Calcium 8.7 8.5 - 10.3 mg/dL [facility] Blood 06/16/2024 12:5 0 AM TAX EXAMINER 06/16/2024 1:22 AM TAX EXAMINER Nasir Lyons MD LAB BLOOD ORDERABLES Mel l Result [facility] Department [place] [address] * (ABNORMAL) Manual Differential (06/15/2024 1:26 AM TAX EXAMINER) Differential Manual Cells Counted 122 [facility] Neutrophil abs 4.5 1.5 - 6.5 K/cumm [facility] Imm gran abs 0.0 0.0 - 0.1 K/cumm [facility] Lymphocyte abs 5.8(H) 0.8 - 3.3 K/cumm [facility] Monocyte abs 0.2 0.2 - 0.8 K/cumm [facility] Basophil abs 0.1 0.0 - 0.1 K/cumm [facility] Neutrophil pct 42.6 % [facility] Comment: Interpretive Data Percent cell count reference ranges are not reported, since discordance with absolute values may lead to misinterpretation of CBC data. Current Interpretive Data was last revised on 2017. Lymphocyte pct 49.3 % [facility] Comment: Interpretive Data Percent cell count reference ranges are not reported, since discordance with absolute values may lead to misinterpretation of CBC data. Current Interpretive Data was last revised on 2017. Monocyte pct 1.6 % [facility] Comment: Interpretive Data Percent cell count reference ranges are not reported, since discordance with absolute values may lead to misinterpretation of CBC data. Current Interpretive Data was last revised on 2017. Basophil pct 0.8 % [facility] Comment: Interpretive Data Percent cell count reference ranges are not reported, since discordance with absolute values may lead to misinterpretation of CBC data. Current Interpretive Data was last revised on 2017. Variant lymph pct 5.7 % [facility] RBC morphology Normal [facility] Platelet estimate Adequate [facility] Blood 06/15/2024 1:26 AM TAX EXAMINER 06/15/2024 1:39 AM TAX EXAMINER Nasir Lyons MD LAB BLOOD ORDERABLES Mel badillo Result [facility] Department [place] [address] * (ABNORMAL) eGFR (06/15/2024 1:26 AM TAX EXAMINER) Pathologist [facility] [place] eGFR 27(L) >=60 mL/min/1. 73 m2 Comment: [...] last reviewed 2021. Blood 06/15/2024 1:26 AM TAX EXAMINER 06/15/2024 1:36 AM TAX EXAMINER us Nasir Lyons MD LAB BLOOD ORDERABLES Mel badillo Result [facility] Department [place] [address] * Magnesium (06/15/2024 1:26 AM TAX EXAMINER) [facility] Magnesium 1.8 1.4 - 2.5 mg/dL Blood 06/15/2024 1:26 AM TAX EXAMINER 06/15/2024 1:36 AM TAX EXAMINER Nasir Lyons MD LAB BLOOD ORDERABLES Mel l Result Performing Organization Address [facility] de Phone Number [facility] [place] [address] * (ABNORMAL) Hepatic function panel (06/15/2024 1:26 AM TAX EXAMINER) [facility] Bilirubin, total 0.6 0.1 - 1.2 mg/dL Bilirubin, direct <0.2 0.1 - 0.3 mg/dL [facility] Protein, pl 6.3(L) 6.5 - 8.5 g/dL [facility] Albumin 4.0 3.5 - 5.0 g/dL [facility] Alk phos 71 40 - 130 Units/L [facility] ALT 11 7 - 45 Units/L [facility] AST 25 10 - 45 Units/L [facility] Blood 06/15/2024 1:26 AM TAX EXAMINER 06/15/2024 1:36 AM TAX EXAMINER Nasir Lyons MD LAB BLOOD ORDERABLES Mel l Result Performing Organization Address [facility] de Phone Number [facility] [place] [address] * (ABNORMAL) CBC with auto differential (06/15/2024 1:26 AM TAX EXAMINER) Pathologist [facility] [place] WBC 10.5(H) 3.8 - 9.9 K/cumm Hgb 10.9(L) 11.9 - 15.5 g/dL [facility] Hct 34.1(L) 35.6 - 45.5 % [facility] Plt 149(L) 150 - 400 K/cumm [facility] MPV 10.1 9.1 - 12.3 fL [facility] RBC 3.47(L) 3.90 - 5.20 M/cumm [facility] MCV 98.3(H) 81.3 - 96.4 fL [facility] MCH 31.4 27.1 - 33.3 pg [facility] MCHC 32.0(L) 32.3 - 35.7 g/dL [facility] RDW CV 14.8 11.1 - 14.9 % [facility] RDW SD 53.0(H) 35.7 - 48.1 fL [facility] NRBC abs 0.00 0.00 - 0.01 K/cumm [facility] Blood 06/15/2024 1:26 AM TAX EXAMINER 06/15/2024 1:36 AM TAX EXAMINER us Nasir Lyons MD LAB BLOOD ORDERABLES Mel badillo Result [facility] Department [place] [address] * (ABNORMAL) Basic metabolic panel (06/15/2024 1:26 AM TAX EXAMINER) [facility] Sodium 139 135 - 145 mmol/L Potassium, pl 4.1 3.3 - 4.9 mmol/L [facility] Chloride 107 97 - 110 mmol/L [facility] CO2 22 22 - 32 mmol/L [facility] Anion gap 10 2 - 15 mmol/L [facility] BUN 18 6 - 25 mg/dL [facility] Creatinine 1.94(H) 0.60 - 1.10 mg/dL [facility] Glucose 127 70 - 199 mg/dL [facility] [...] Calcium 8.9 8.5 - 10.3 mg/dL [facility] Blood 06/15/2024 1:26 AM TAX EXAMINER 06/15/2024 1:36 AM TAX EXAMINER us Nasir Lyons MD LAB BLOOD ORDERABLES Mel l Result Performing Organization Address [facility] Co de Phone Number [facility] Department [place] [address] * ECG 12 lead (06/14/2024 8:35 PM TAX EXAMINER) Ventricular Rate EKG/Min 68 BPM [facility] Atrial Rate 68 BPM [facility] VA-Interval (MSEC) 134 ms [facility] QRS-Interval (MSEC) 104 ms [facility] QT-Interval (MSEC) 430 ms [facility] QTc 457 ms [facility] P F[place] -28 degrees [facility] R [place] -2 degrees [facility] T [place] 2 degrees [facility] Diagnosis Normal sinus rhythm Normal ECG When compared with ECG of 17-APR-2019 07:30, No significant change was found Confirmed by PIPER WILSON M.D ([id number]) on 06/15/2024 5:17:10 PM [facility] 06/14/2024 8:35 PM TAX EXAMINER 06/15/2024 5:17 PM TAX EXAMINER us Eren Cr MD ECG ORDERABLES Final Result Performing Organization Address [facility] Co de Phone Number [facility] * CT Abdomen Pelvis W Contrast (06/14/2024 2:26 AM TAX EXAMINER) Anatomical Region Laterality Modality Body N/A Computed Tomogra phy 06/14/2024 4:36 AM TAX EXAMINER Impressions 06/14/2024 9:47 AM TAX EXAMINER 1. Slight increase in size of multiple [...] Becky Golden M.D. Narrative 06/14/2024 9:47 AM TAX EXAMINER EXAMINATION: ??Computed tomography of the abdomen and [...] Pro B-type natriuretic peptide (06/14/2024 12:23 AM TAX EXAMINER) NT-proBNP 3,993(H) <=450 pg/mL Comment: Interpretive Comments: [...] Date: 2018. Blood 06/14/2024 12:2 3 AM TAX EXAMINER 06/14/2024 12:35 AM TAX EXAMINER us Armida Guajardo MD LAB BLOOD ORDERABLES Final Resul t [facility] Department of [place] [address] * (ABNORMAL) eGFR (06/14/2024 12:23 AM TAX EXAMINER) eGFR 29(L) >=60 mL/min/1. 73 m2 Comment: [...] reviewed 2021. Blood 06/14/2024 12:2 3 AM TAX EXAMINER 06/14/2024 12:35 AM TAX EXAMINER us Kelton Keys MD LAB BLOOD ORDERABLES Final Res ult [facility] Department [place] [address] * (ABNORMAL) Differential, auto (06/14/2024 12:23 AM TAX EXAMINER) Neutrophil abs 3.8 1.5 - 6.5 K/cumm Imm gran abs 0.0 0.0 - 0.1 K/cumm [facility] Lymphocyte abs 2.4 0.8 - 3.3 K/cumm [facility] Monocyte abs 3.4(H) 0.2 - 0.8 K/cumm [facility] Eosinophil abs 0.0 0.0 - 0.5 K/cumm [facility] Basophil abs 0.0 0.0 - 0.1 K/cumm [facility] Neutrophil pct 39.4 % [facility] Comment: Confirmed by smear review Interpretive Data Percent cell count reference ranges are not reported, since discordance with absolute values may lead to misinterpretation of CBC data. Current Interpretive Data was last revised on 2017. Imm gran pct 0.4 % [facility] Comment: Interpretive Data Percent cell count reference ranges are not reported, since discordance with absolute values may lead to misinterpretation of CBC data. Current Interpretive Data was last revised on 2017. Lymphocyte pct 24.8 % [facility] Comment: Interpretive Data Percent cell count reference ranges are not reported, since discordance with absolute values may lead to misinterpretation of CBC data. Current Interpretive Data was last revised on 2017. Monocyte pct 35.1 % [facility] Comment: Interpretive Data Percent cell count reference ranges are not reported, since discordance with absolute values may lead to misinterpretation of CBC data. Current Interpretive Data was last revised on 2017. Eosinophil pct 0.0 % [facility] Comment: Interpretive Data Percent cell count reference ranges are not reported, since discordance with absolute values may lead to misinterpretation of CBC data. Current Interpretive Data was last revised on 2017. Basophil pct 0.3 % [facility] Comment: Interpretive Data Percent cell count reference ranges are not reported, since discordance with absolute values may lead to misinterpretation of CBC data. Current Interpretive Data was last revised on 2017. Blood 06/14/2024 12:2 3 AM TAX EXAMINER 06/14/2024 12:36 AM TAX EXAMINER us Kelton Keys MD LAB BLOOD ORDERABLES Final Res ult [facility] Department [place] [address] * (ABNORMAL) Comprehensive metabolic panel (06/14/2024 12:23 AM TAX EXAMINER) Sodium 139 135 - 145 mmol/L Potassium, pl 4.6 3.3 - 4.9 mmol/L [facility] Chloride 110 97 - 110 mmol/L [facility] CO2 19(L) 22 - 32 mmol/L [facility] Anion gap 10 2 - 15 mmol/L [facility] BUN 16 6 - 25 mg/dL [facility] Creatinine 1.79(H) 0.60 - 1.10 mg/dL [facility] Glucose 141 70 - 199 mg/dL [facility] Calcium 8.9 8.5 - 10.3 mg/dL [facility] Bilirubin, total 0.4 0.1 - 1.2 mg/dL [facility] Protein, pl 6.4(L) 6.5 - 8.5 g/dL [facility] Albumin 3.9 3.5 - 5.0 g/dL [facility] Alk phos 79 40 - 130 Units/L [facility] ALT 8 7 - 45 Units/L [facility] AST 30 10 - 45 Units/L [facility] Blood 06/14/2024 12:2 3 AM TAX EXAMINER 06/14/2024 12:35 AM TAX EXAMINER us Kleton Keys MD LAB BLOOD ORDERABLES Final Res ult [facility] Department [place] [address] * (ABNORMAL) CBC with auto differential (06/14/2024 12:23 AM TAX EXAMINER) WBC 9.8 3.8 - 9.9 K/cumm Hgb 11.6(L) 11.9 - 15.5 g/dL [facility] Hct 36.6 35.6 - 45.5 % [facility] Plt 145(L) 150 - 400 K/cumm [facility] MPV 10.9 9.1 - 12.3 fL [facility] RBC 3.68(L) 3.90 - 5.20 M/cumm [facility] MCV 99.5(H) 81.3 - 96.4 fL [facility] MCH 31.5 27.1 - 33.3 pg [facility] MCHC 31.7(L) 32.3 - 35.7 g/dL [facility] RDW CV 14.7 11.1 - 14.9 % [facility] RDW SD 54.8(H) 35.7 - 48.1 fL [facility] NRBC abs 0.00 0.00 - 0.01 K/cumm [facility] Blood 06/14/2024 12:2 3 AM TAX EXAMINER 06/14/2024 12:36 AM TAX EXAMINER us Kelton Keys MD LAB BLOOD ORDERABLES Final Res ult [facility] Department [place] [address] documented in this encounter Visit Diagnoses Diagnosis [...] Sat06/15/24 at 0940 Given 06/19/2024 5:11 PM TAX EXAMINER 650 mg Given 06/17/2024 8:48 PM TAX EXAMINER 650 mg Given 06/15/2024 10:00 AM TAX EXAMINER 650 mg amLODIPine (NORVASC) tablet 5 mg 5 mg, oral, Daily, First dose on Sat06/14/24 at 1522 Given 06/20/2024 8:14 AM TAX EXAMINER 5 mg Given 06/18/2024 9:22 AM TAX EXAMINER 5 mg Given 06/17/2024 8:48 AM TAX EXAMINER 5 mg Carrier Fluids for Secondary Infusion [...] or chew capsule Given 06/20/2024 8:14 AM TAX EXAMINER 30 mg Given 06/18/2024 9:22 AM TAX EXAMINER 30 mg Given 06/17/2024 8:48 AM TAX EXAMINER 30 mg enoxaparin (LOVENOX) syringe 30 mg 30 mg, subcutaneous, Daily (for enoxaparin), First dose on 06/14/24 at 2100, Indications: Deep Vein Thrombosis Prevention, On hold since Lydia 06/18/2024 at 0745 until manually unheldIndications:Deep Vein Thrombosis Prevention Given 06/17/2024 8:42 PM TAX EXAMINER 30 mg Right Lower Abdomen Given 06/16/2024 8:03 PM TAX EXAMINER 30 mg Ri ght Lower Abdomen Given 06/15/2024 9:41 PM TAX EXAMINER 30 mg Ri ght Lower Abdomen heparin 10 unit/mL flush 50 Units 50 Units (5 mL), intra-catheter, As needed, line care, Starting on 06/15/24 at 1043 Given 06/18/2024 1:30 A M TAX EXAMINER 50 Units Given 06/15/2024 10:47 AM TAX EXAMINER 50 Units HYDROcodone-acetaminophen (NORCO) 5-325 mg per tablet 1 tablet 1 tablet, oral, Every 4 hours PRN, breakthrough pain, Starting on 06/14/24 at 1553, Indications: PainIndications:Pain hydrOXYzine (ATARAX) tablet 25 mg 25 mg, oral, Nightly PRN, anxiety, Starting on 12/8/24 at 2039 Given 06/14/2024 9:12 PM TAX EXAMINER 25 mg iothalamate meglumine (CONRAY) 60 % injection As needed, Starting on Sat06/16/24 at 1531, Intra-Op Given 06/16/2024 3:31 PM TAX EXAMINER 10 mL levothyroxine (SYNTHROID) tablet 100 mcg 100 mcg, oral, Daily (early AM), First dose on Sat06/14/24 at 1522, Administer on an empty stomach, preferably 30 minutes before breakfast. Take 4 hours apart from antacids, iron and calcium products. Separate from tube feeds, if applicable. Given 06/20/2024 5:56 AM TAX EXAMINER 100 mcg Given 06/19/2024 5:11 AM TAX EXAMINER 100 mcg Given 06/18/2024 6:08 AM TAX EXAMINER 100 mcg lidocaine (LIDODERM) 5 % patch [...] Indications: hypomagnesemiaIndications:hypomagnesemia New Bag 06/20/2024 4:58 AM TAX EXAMINER 4 g magnesium sulfate 6 g in [...] vomitingIndications:nausea and vomiting Given 06/19/2024 12:01 PM TAX EXAMINER 4 mg ondansetron ODT (ZOFRAN-ODT) disintegrating tablet [...] Non-Bleeding Gastric Disorder Given 06/20/2024 8:14 AM TAX EXAMINER 40 mg Given 06/18/2024 9:22 AM TAX EXAMINER 40 mg Given 06/17/2024 8:47 AM TAX EXAMINER 40 mg potassium chloride ER (KLOR-CON) extended [...] chewed., Indications: hypokalemiaIndications:hypokalemia Given 06/20/2024 5:56 AM TAX EXAMINER 40 mEq Given 06/18/2024 6:08 AM TAX EXAMINER 40 mEq prochlorperazine (COMPAZINE) injection 5 mg 5 mg, intravenous, Administer over 2 Minutes, Every 6 hours PRN, nausea, vomiting, Second line for nausea, Starting on Sat06/17/24 at 1548 Given 06/19/2024 12:20 PM TAX EXAMINER 5 mg sodium chloride 0.9% flush 0.5-20 mL 0.5-20 mL, intra-catheter, Every 8 hours scheduled, First dose on Sat06/14/24 at 1523, Flush volume based on line type and size. , Indications: FlushingIndications:Flushing Given 06/20/2024 11:42 AM TAX EXAMINER 1 0 mL Given 06/17/2024 8:43 PM TAX EXAMINER 10 mL Given 06/16/2024 8:12 PM TAX EXAMINER 10 mL sodium chloride 0.9% flush 0.5-20 [...] size, and protocol. Given 06/20/2024 8:14 AM TAX EXAMINER 10 mL sodium chloride 0.9% irrigation As needed, Starting on Sat06/16/24 at 1531, Intra-Op Given 06/16/2024 3:32 PM TAX EXAMINER 3,000 mL Surgical Site Given 06/16/2024 3:31 PM TAX EXAMINER 1,000 mL Watson rgical Site documented in this encounter Discontinued Medications Medication Sig Discontinue Reason Start Date End Da te ipratropium (ATROVENT) 42 mcg (0.06 %) nasal spray [place] 1 spray twice a day by nasal route for 13 days. 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 Scheduled Medication Order 06/18/2024 06/19/2024 06/20/2024 amLODIPine [...] 1 06/20/2024 SKIN PREP 1 06/19/2024 VOID BUILDING PRINCIPAL TO OR 2 06/19/2024 Consult Count Last [...] 06/16/2024 documented in this encounter Care Teams [employer] Support Relationship Specialty Start Date End Date Julio César Briseno MD PCP - General 10/01/16 Eren Cr MD Referring Physician Medical Oncology 11/25/18 Yohana Bowen MD Radiation Oncologist Radiation Oncology 11/25/18 Alejo Mi MD [address] [address] Referring Physician Nephrology 03/07/23 documented as of this encounter
--- OUTSIDE RECORDS SUMMARY | 2024-06-26 01:51 | XMS_ITS | Encounter Summary ---
Author Organization [facility] Healthcare Address [address] [place] [address] Care Team Providers Care Lawn Caretaker Name Role Phone Julio César Briseno MD Primary Care Provider [phone] Eren Cr MD Unavailable [phone] Yohana Bowen MD Unavailable Alejo Mi MD Unavailable [phone] Encounter Details Date Type Department Care Team (Late st Contact Info) Description 06/17/2024 Orders Only [facility] Radiology [address] [place] [address] Dorota Rogers, RN Social History Tobacco Use [...] materials from doctor or pharmacy Never 11/07/2022 [facility] Utilities Answer Date Recorded In the past 12 months has th e electric, gas, oil, or water [employer] threatened to shut off services in your [...] often do you attend chur ch or rastafarian services? More than 4 times per year 06/20/2024 Do you belong to any clubs o r organizations such as zoroastrian groups, unions, fraternal or athletic groups, or [...] time in the past 12 m [facility], were you homeless or living in a skilled nursing (including now)? No 06/20/2024 Personal Safety Answer Date Recorded Have you ever been in or are you currently in a harmful physical or emotional relationship or is someone making you feel afraid or unsafe? 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 Gender Identity Not on file Sexual Orientation Straight 02/19/2021 9: 29 AM CDT Occupation Industry Job Start Date Job End Date retired Not on file Not on file Not on file documented as of this encounter Plan of Treatment Not on file documented as of this encounter Visit Diagnoses Not on filedocumented in this encounter Care Teams Lawn Caretaker Relationship Specialty Start Date End Date Julio César Briseno MD PCP - General 10/01/16 Eren Cr MD Referring Physician Medical Oncology 11/25/18 Yohana Bowen MD Radiation Oncologist Radiation Oncology 11/25/18 Alejo Mi MD [address] [place] [address] Referring Physician Nephrology 03/07/23 documented as of this encounter
--- OUTSIDE RECORDS SUMMARY | 2024-06-26 01:51 | XMS_ITS | Encounter Summary ---
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 No answer, no message left per department policy. OLOGIST DIAGNOSTIC documented in this encounter Plan of Treatment Not on file documented as of this encounter Visit Diagnoses Not on filedocumented in this encounter Care Teams Plastics Plater Relationship Specialty Start Date End Date Julio César Briseno MD PCP - General 10/01/16 Eren Cr MD Referring Physician Medical Oncology 11/25/18 Yohana Bowen MD Radiation Oncologist Radiation Oncology 11/25/18 Alejo Mi MD [id number] [place] [address] Referring Physician Nephrology 03/07/23 documented as of this encounter
--- OUTSIDE RECORDS SUMMARY | 2024-06-26 01:51 | XMS_ITS | Encounter Summary ---
Author Organization [facility] Address [address] [place] [address] Phone Care Team Providers Care [employer] Name Role Phone Julio César Briseno MD Primary Care Provider [phone] Eren Cr MD Unavailable [phone] Yohana Bowen MD Unavailable Alejo Mi MD Unavailable [phone] Encounter Details Date Type Department Care Team (Late st Contact Info) Description 06/22/2024 Orders Only [facility] Oncology [address] [place] [address] Eren Cr MD [address] [place] [address] Neuroendocrine carcinoma (HCC) (Primary Dx); Malignant neoplasm [...] materials from doctor or pharmacy Never 11/07/2022 [facility] Utilities Answer Date Recorded In [...] often do you attend chur ch or mormon services? More than 4 times per year 06/20/2024 Do you belong to any clubs o r organizations such as christian groups, unions, fraternal or athletic groups, or [...] any time in the past 12 m [facility], were you homeless or living in a detention (including now)? No 06/20/2024 Personal Safety Answer Date Recorded Have you ever been in or are you currently in a harmful physical or emotional relationship or is someone making you feel afraid or unsafe? 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
--- OUTSIDE RECORDS SUMMARY | 2024-06-26 01:51 | XMS_ITS | Encounter Summary ---
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) Procedures IR Embolization Tumor Organ Ischemia or Infarction Mikey Meraz MD [address] [facility] [address] [place] [address] Phone: tel: fax: [address] [phone] Referral ID Status Reason Start Date Expiration Date Visits Re quested Visits Authorized [id number] Closed 06/11/2024 07/11/2025 1 1 CINE TECH * Diagnostic Imaging (Routine) - Closed Specialty Diagnoses / Procedures Referred By Contac t Referred To Contact Radiology Diagnoses 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) Procedures IR Biopsy Liver Mikey Meraz MD [address] [facility] [address] [place] [address] Phone: tel: fax: [address] [phone] Referral ID Status Reason Start Date Expiration Date Visits Re quested Visits Authorized [id number] Closed 06/11/2024 07/11/2025 1 1 CINE TECH Reason for Visit * Reason Comments Hypertension * Auth/Cert (Routine) Specialty Diagnoses / Procedures Referred By Contac t Referred To Contact Diagnoses History of malignant neuroendocrine tumor ANNE-MARIE (acute kidney injury) (HCC) 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 Procedures NA Referral ID Status Reason Start Date Expiration Date Visits Re quested Visits Authorized [id number] 1 1 Encounter Details Date Type Department Care Team (Latest Contact Info) Description 06/13/2024 10:27 PM MEDICINE TECH - 06/20/2024 1:30 PM MEDICINE TECH Hospital Encounter [address] [phone] Stu Huang MD [address] [place] [address] Eren Cr MD [address] [facility] [address] [place] [address] Armida Guajardo MD [address] [place] [address] Miguel Angel Martinez MD [address] [place] [address] Dana Barajas MD [address] [place] [address] ANNE-MARIE (acute kidney injury) (HCC) (Primary Dx); [...] from doctor or pharmacy Never 11/07/2022 [facility] Utilities Answer Date Recorded In the [...] often do you attend chur ch or anabaptist services? More than 4 times per year 06/20/2024 Do you belong to any clubs o r organizations such as uatsdin groups, unions, fraternal or athletic groups, or [...] any time in the past 12 m [facility], were you homeless or living in a snf (including now)? No 06/20/2024 Personal Safety Answer Date Recorded Have you ever been in or are you currently in a harmful physical or emotional relationship or is someone making you feel afraid or unsafe? Denies 06/16/2024 Comments No Sex and Gender Information Value Date Recorded Sex Assigned at Not on file Legal Sex Female 2:41 PM MEDICINE TECH Gender Identity Not on file Sexual Orientation Straight 02/19/2021 9: 29 AM CDT Occupation Industry Job Start Date Job End Date retired Not on file Not on file Not on file documented as of this encounter Last Filed Vital Signs Vital Sign Reading Time Taken Comments Blood Pressure 139/45 06/20/2024 8:14 AM MEDICINE TECH Pulse 95 06/20/2024 8:14 AM MEDICINE TECH Temperature 36.4 ??C (97.6 ??F) 06/20/2024 7:25 AM CS T Respiratory Rate 16 06/20/2024 7:25 AM MEDICINE TECH Oxygen Saturation 95% 06/20/2024 7:25 AM MEDICINE TECH Inhaled Oxygen Concentration - - Weight 72.6 kg (160 lb) 06/19/2024 9:30 PM MEDICINE TECH Height 160 cm (5' 3 ) 06/19/2024 7:33 AM MEDICINE TECH Body Mass Index 28.34 06/19/2024 7:33 AM MEDICINE TECH documented in this encounter Medications at Time [...] 1 tablet (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) by mouth exhibitions curator before breakfast 90 tablet 3 11/28/2023 lidocaine-priloca [...] Age: 73 y.o. female Admission: 06/13/2024 Bed: [id number] LOS: 6 days Subjective Interval History No [...] 40 minutes which was spent performing a qigy-dd-fome encounter and personally completing the provider-level activities documented in the note. This includes time spent prior to the visit and after the visit in direct care of the patient. This time does not include time spent in any separately reportable services. Dana Barajas MD CINE TECH * Brock Bolanos MD - 06/20/2024 10:34 [...] from IR standpoint. - F/u biopsy results CINE TECH * Dana Barajas MD - 06/19/2024 9:00 AM CST Daily Progress Note Division of Hospital Medicine Name: La Chung : 1950 Today's Date: June 19, 2024 Age: 73 y.o. female Admission: 06/13/2024 Bed: [id number] LOS: 5 days Subjective Interval History No [...] 40 minutes which was spent performing a bicc-dx-onta encounter and personally completing the provider-level activities documented in the note. This includes time spent prior to the visit and after the visit in direct care of the patient. This time does not include time spent in any separately reportable services. Dana Barajas MD CINE TECH * Dana Barajas MD - 06/18/2024 10:39 AM CST Daily Progress Note Division of Hospital Medicine Name: La Chung : 1950 Today's Date: June 18, 2024 Age: 73 y.o. female Admission: 06/13/2024 Bed: [id number] LOS: 4 days Subjective Interval History No [...] the liver, omentum, bone, vaginal cuff - [facility] c/s - On octreotide (monthly) and a [...] 40 minutes which was spent performing a vibn-yw-yjre encounter and personally completing the provider-level activities documented in the note. This includes time spent prior to the visit and after the visit in direct care of the patient. This time does not include time spent in any separately reportable services. Dana Barajas MD CINE TECH * Dana Barajas MD - 06/17/2024 3:23 PM CST Daily Progress Note Division of Hospital Medicine Name: La Chung : 1950 Today's Date: June 17, 2024 Age: 73 y.o. female Admission: 06/13/2024 Bed: [id number] LOS: 3 days Subjective Interval History Flank [...] 45 minutes which was spent performing a vfmu-dm-nokb encounter and personally completing the provider-level activities documented in the note. This includes time spent prior to the visit and after the visit in direct care of the patient. This time does not include time spent in any separately reportable services. Dana Barajas MD CINE TECH CINE TECH CINE TECH * Dana Barajas MD - 06/16/2024 10:00 [...] the liver, omentum, bone, vaginal cuff - [facility] c/s - On octreotide (monthly) and a [...] 45 minutes which was spent performing a uavh-wv-bopc encounter and personally completing the provider-level activities documented in the note. This includes time spent prior to the visit and after the visit in direct care of the patient. This time does not include time spent in any separately reportable services. Dana Barajas MD CINE TECH * Pamela Bejarano, RD - 06/15/2024 4:09 [...] 18 CREATININE mg/dL 1.94* < > 2.03* L[facility]-UTF-BFYXDAO mL/min/1.73 m2 27* < > 25* CALCIUM [...] Type of Weight Used for Estimated Kcals: [place] Total Protein Estimated Needs (gm): 78.3 Protein Needs Based on g/k.5 Type of Weight Used for Estimated Protein : [place] Total Fluid Estimated Needs: 1827 Fluid Needs Based on : 1 ml/kcal Type of Weight Used for Estimated Fluid Needs: [place] Dietary Orders (From admission, onward) Start Ordered 06/15/24 1606 Oral Nutrition Supplements ([facility]) Select Supplement: Ensure PLUS High Protein - Any Flavor; Quantity (# of cans): 1 can All Meals Question Answer Comment ([facility]) Select Supplement: Ensure PLUS High Protein - Any Flavor Quantity (# of cans): 1 can 06/15/24 1605 06/15/24 1224 Adult Diet Regular Diet effective now Question: ([facility]) Diet type Answer: Regular 06/15/24 1223 Allergies: Reviewed. IMPRESSION: Met with patient at bedside. She reported poor PO intake for the past couple of weeks. She thinks she has lost some weight over the past month. Reports UBW of 177#. Current epic weight is 173#. No significant weight loss noted per [facility] records. She is interested in trying [...] Pamela Bejarano MS, RD, CNSC, LD Cell CINE TECH * Miguel Angel Martinez MD - 06/15/2024 7:25 AM CST Daily Progress Note Division of Hospital Medicine Name: La Chung : 1950 Today's Date: June 15, 2024 Age: 73 y.o. female Admission: 06/13/2024 Bed: [id number] LOS: 1 days Subjective Interval History Reports [...] the liver, omentum, bone, vaginal cuff - [facility] c/s - On octreotide (monthly) and a clinical trial - Has upcoming liver TACE on Sat. Asking if it can be done while inpatient. Will check with IR. Code status : Full Code Diet : Adult Diet Regular PT/OT Dispo Rec : / Supplementary Attestation My total encounter time on this service date was 60 minutes which was spent performing a awcq-mm-mupo encounter and personally completing the provider-level activities documented in the note. This includes time spent prior to the visit and after the visit in direct care of the patient. This time does not include time spent in any separately reportable services. Miguel Angel Martinez MD CINE TECH * Yanet Howard - 06/14/2024 8:00 PM [place] [id number]. 2 RN skin check completed. Admitting MD notified of pt arrival and elevated BP 176/51. Pt oriented to room and unit. Ostomy bag changed with RN assistance. Fluids verified. CINE TECH documented in this encounter H&P Notes * [...] Mela Dejesus MD at 06/16/2024 1:57 PM MEDICINE TECH CINE TECH CINE TECH Source Note - File, Susana Palumbo NP - 06/15/2024 8:28 AM MEDICINE TECH Images from the original note were not [...] or concerns, please page Urology through the beck operator. Susana Tate NP 06/15/2024 Cosigned by Pa Teran MD at 06/15/2024 1:48 PM MEDICINE TECH CINE TECH CINE TECH * Nasir Lyons MD - 06/14/2024 3:26 [...] also underwent right colectomy in [facility] OR by Dr. Greyson Reeves. Biopsy [...] 1 tablet (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) by mouth exhibitions curator before breakfast, Disp: 90 tablet, Rfl: 3 0.9 % sodium chloride ([facility] sodium chloride 0.9%) injection, Infuse 10 mL [...] mg capsule, Take 1 tablet by mouth exhibitions curator before breakfast (Patient not taking: Reported on [...] Reported on 01/24/2024), Disp: , Rfl: coenzyme A45-mgercza E 100-5 mg-unit capsule, Take 1 tablet by mouth exhibitions curator before breakfast(Patient not taking: Reported on 12/24/2023), [...] to MRI exam, may repeat dose if [id number] minutes prior to MRI (Patient taking differently: [...] reviewed the CT report Nasir Lyons MD CINE TECH documented in this encounter Consult Notes * Laurence Torres NP - 06/16/2024 10:20 AM CSTAssociated Order(s): IP CONSULT [facility] Images from the original note were not included. Medical Oncology Consult/ Established Patient Date: 06/16/2024 Name: La Chung : 1950 AGE: 73 y.o. Requesting Service: [facility] Medicine - Oncology Reason for Consult: [...] also underwent right colectomy in [facility] OR by Dr. Greyson Reeves. Biopsy [...] 1 tablet (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) by mouth exhibitions curator before breakfast 90 tablet 3 06/13/2024 simvastatin (ZOCOR) 20 mg tablet Take 1 tablet (20 mg total) by mouth nightly Past Week 0.9 % sodium chloride ([facility] sodium chloride 0.9%) injection Infuse [...] mg capsule Take 1 tablet by mouth exhibitions curator before breakfast (Patient not taking: Reported on 12/24/2023) cholecalciferol (VITAMIN D-3) 1,000 unit Take 1 tablet/capsule (1,000 Units total) by mouth daily (Patient taking differently: Take 1 tablet/capsule (1,000 Units total) by mouth every morning) 90 tablet/capsule 3 clotrimazole-betamethasone (LOTRISONE) cream Apply 1 Application topically daily as needed (rash) (Patient not taking: Reported on 01/24/2024) coenzyme F09-chwczzr E 100-5 mg-unit capsule Take 1 tablet by mouth exhibitions curator before breakfast (Patient not taking: Reported on [...] venous catheter once a week Patient to [id number] of Normal Saline via CADD Coreas pump [...] or family members viewing this note through [employer]. This note was written as a [...] Cano MD PhD at 06/16/2024 4:15 PM MEDICINE TECH CINE TECH CINE TECH Associated attestation - Julio César Cano MD PhD - 06/16/2024 4:15 PM MEDICINE TECH I have seen and examined the patient [...] or concerns, please page Urology through the beck operator. Xochitl Knowles MD 06/16/2024 Cosigned by Mela Dejesus MD at 06/16/2024 1:57 PM MEDICINE TECH CINE TECH CINE TECH * File, Susana Palumbo NP - 06/15/2024 [...] or concerns, please page Urology through the beck operator. Susana Tate NP 06/15/2024 Cosigned by Pa Teran MD at 06/15/2024 1:48 PM MEDICINE TECH CINE TECH CINE TECH Associated attestation - Pa Teran MD - 06/15/2024 1:48 PM MEDICINE TECH I have seen and examined the patient [...] Fonseca MSN OCN RN Inpatient Nurse Coordinator [id number] Medical Oncology CINE TECH documented in this encounter ED Notes * Anne-Marie Xiong RN - 06/14/2024 7:41 AM CST Bed: ED4-10 Expected date: Expected time: Means of arrival: Comments: 2-17 Anne-Marie Xiong RN 06/14/24 0741 CINE TECH * Kelton Borjas MD - 06/13/2024 10:29 [...] blood pressure in 200s and was sent merged [facility]. Patient's daughter notes that patient has [...] Diagnosis Date Noted ANNE-MARIE (acute kidney injury) ([facility]) and Mild right hydroureteronephrosis 06/14/2024 Vomiting 06/14/2024 HTN (hypertension) 06/14/2024 Anxiety 06/14/2024 High risk medication use 01/31/2024 Hypothyroidism 09/12/2023 Proctitis 04/09/2022 Thrombocytopenia (HCC) 04/09/2022 Dehydration 03/15/2022 Depressive disorder 02/15/2022 Hypomagnesemia 10/16/2021 Hearing loss 08/30/2021 Vertigo 08/30/2021 Muscle weakness 08/16/2021 Nausea 08/11/2021 Hypophosphatemia 06/14/2021 Closed displaced fracture of head of right radius 11/20/2020 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, unspecified ([facility]) 04/14/2020 Right flank pain 01/13/2020 Benign essential hypertension 01/13/2020 Blepharitis 01/13/2020 Cough 01/13/2020 Diarrhea 01/13/2020 Enthesopathy of knee 01/13/2020 Vitamin D deficiency 01/13/2020 Knee pain 01/13/2020 Low back pain 01/13/2020 Mass of ovary 01/13/2020 Osteoarthritis of knee 01/13/2020 Pure hypercholesterolemia 01/13/2020 Shoulder joint pain 01/13/2020 Epithelial hyperplasia 07/22/[address] ([facility]/HCC) (HCC) 05/14/2019 Acute blood loss anemia 04/17/2019 Hypocalcemia 04/14/2019 Stage 3b chronic kidney disease (HCC) 04/14/2019 Large bowel obstruction (CMS/HCC) (HCC) 04/12/2019 Malignant neoplasm metastatic to bone ([facility]/HCC) (HCC) 03/02/2019 Neuro-endocrine carcinoma (HCC) 06/18/2018 Neuroendocrine [...] Stu Huang MD at 06/17/2024 12:49 PM MEDICINE TECH CINE TECH CINE TECH * Susana Mon, RN - 06/13/2024 10:27 PM CST Bed: ED2-17 Expected date: 06/13/24 Expected time: 6:30 PM Means of arrival: On Foot Comments: Susana Mon, RN 06/13/24 2107 CINE TECH * Marlen Andino RN - 06/13/2024 6:39 [...] by the clinic, AOx4, denies sick contacts. CINE TECH documented in this encounter Miscellaneous Notes * Plan of Care - Marcia Haynes RN - 06/20/2024 10:56 AM CST Goals: Clinical Goals for the Shift: VSS, comfort, safety Summary: VSS. Pt resting well. No c/o pain. Per pt, blood in urine has decreased. Pt agreeable to plan for d/c. Care plan ongoing. CINE TECH * Initial Assessments - Sima Agrawal LCSW [...] Agent? 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: Medicare, [employer] Race: White/ Ethnicity: Non- Gender Identity: Female Service : None (06/20/24 1051) Current Situation: Current Situation Living Arrangements: Spouse/significant other Type of Residence: Private residence Income: Residential/Pension Education Level : High School Diploma How [...] other adult children Do you have a Scientologist Preference or Affiliation?: Yes Preference/Affiliation : Confucianist Are there any Scientologist Practices that are important to maintain while [...] physical health Current Stressors: Chronic illness (06/20/24 1051) SDOH Transportation Needs: No Transportation Needs (06/20/2024) [...] More than three times a week Attends Scientologist Services: More than 4 times per year [...] have an appointment to meet with a funds transfer clerk for completion of POA. Sima Agrawal LCSW Please see [facility] Treatment Team for contact information. CINE TECH * Plan of Care - Soniya López RN - 06/20/2024 6:48 AM CST Goals: Clinical Goals for the Shift: VSS, comfort, safety Summary: vitals stable, RA, potassium and magnesium replaced. No complaints of pain. CINE TECH * Plan of Care - Sis Pedraza [...] Goals for the Shift: VSS, comfort, safety CINE TECH * Post-Procedure Note - Dar Willett MD - 06/19/2024 11:15 AM MEDICINE TECH Radiology Brief Post Procedure Note Attending: Kt Suction Plate Carrier Cleaner: Tamie Sedation/Anesthesia: Min Sedation Pre-Op/Pre-Procedure Diagnosis: metastatic neuroendocrine cancer Post-Op/Post-Procedure Diagnosis: same Procedure Performed: TACE posterior division of RHA Procedure Findings: same Complications: None Estimated Blood Loss: < 30 ml Specimens: None Condition: Stable Full report to follow. CINE TECH * Plan of Care - Maureen Marrufo LCSW - 06/19/2024 11:08 AM CST SW consult received for high-risk readmission (24%). Patient currently off the floor at ; therefore, SW unable to assess. SW to attempt to meet with pt to complete assessments prior to discharge. Maureen Marrufo LCSW CINE TECH * Post-Procedure Note - Dar Willett MD - 06/19/2024 8:52 AM MEDICINE TECH Radiology Brief Post Procedure Note Attending: Kt Suction Plate Carrier Cleaner: Tamie Sedation/Anesthesia: Min Sedation Pre-Op/Pre-Procedure Diagnosis: neuroendocrine tumor Post-Op/Post-Procedure Diagnosis: same Procedure Performed: CT guided liver biopsy Procedure Findings: successful Complications: None Estimated Blood Loss: < 30 ml Specimens: 4 2.3 cm specimens sent to lab Condition: Stable Full report to follow. CINE TECH * Plan of Care - Nati Rousseau RN - 06/19/2024 6:13 AM CST Goals: Clinical Goals for the Shift: VSS, comfort, safety Summary: Pt stable, NPO since midnight, no complaints. CINE TECH * Plan of Care - Sis Pedraza RN - 06/18/2024 8:59 PM CST VSS. Kidney ultrasound completed. Patient denies pain. NPO @ midnight d/t TACE procedure. Plan of care ongoing. Problem: Discharge Planning Goal: Understanding discharge needs will improve Outcome: Ongoing Problem: Skin/Tissue Integrity Goal: Skin integrity remains intact Outcome: Ongoing Goals: Clinical Goals for the Shift: VSS, comfort, safety CINE TECH * Consults, Subsequent - Xochitl Knowles MD - 06/18/2024 5:56 PM MEDICINE TECH Images from the original note were not [...] or concerns, please page Urology through the beck operator. Xochitl Knowles MD 06/18/2024 Cosigned by Mikey Barnes MD at 06/18/2024 6:09 PM MEDICINE TECH CINE TECH CINE TECH * Pre-Procedure Note - Dar Willett MD - 06/18/2024 2:31 PM MEDICINE TECH PRE-SEDATION ASSESSMENT/H&P Patient is a 73 y.o. [...] D-3) 1,000 unit clotrimazole-betamethasone (LOTRISONE) cream coenzyme V57-zzonpoq E 100-5 mg-unit capsule denosumab (Xgeva) 120 [...] 06/17/24 1648 06/17/24 1934 06/18/24 0432 06/18/24 08 BP: 144/57 138/46 137/57 136/49 BP Location: [...] Pertinent Labs: Recent Labs Lab Units 06/18/2413606/17/24 01206/16/24 0050 WBC K/cumm 9.0 11.3* 11.2* HEMOGLOBIN g/dL 10.2* 11.4* 11.0* HEMATOCRIT % 32.0* 35.1* 35.0* PLATELETS K/cumm 155 156 149* Recent Labs Lab Units 06/18/2413606/17/2412406/16/24 0050 SODIUM mmol/L 141 142 141 POTASSIUM [...] PO status: Last PO: NPO since midnight CINE TECH * Plan of Care - Nohelia Moore RN - 06/18/2024 4:34 AM CST Goals: Clinical Goals for the Shift: VSS; Safety; Comfort Summary: VSS. PRN tylenol administered x1 for discomfort. Labs drawn and sent - K 3.2, replaced perPO. Patient still having hematuria. Patient resting in bed. Safety maintained. Care plan ongoing. CINE TECH * Plan of Care - Sis Pedraza RN - 06/17/2024 7:36 PM CST VSS. Patient denies pain. TTE completed. Plan of care ongoing. Goals: Clinical Goals for the Shift: VSS; Safety; Comfort Problem: Discharge Planning Goal: Understanding discharge needs will improve Outcome: Progressing Problem: Respiratory Goal: Achieves optimal ventilation and oxygenation Outcome: Progressing CINE TECH * Assessment & Plan Note - Dana Barajas MD - 06/17/2024 3:30 PM MEDICINE TECH Associated Problem(s): Exertional dyspnea Reports noting increased exertional dyspnea over last year or so. Nt-probnp elevated on admission - TTE with grade 1 diastolic dysfunction, thickened LV but otherwise normal systolic function EF 66% and normal valvular function CINE TECH CINE TECH CINE TECH * Plan of Care - Callie Gama [...] Patient and/or family are agreeable with plan. apartment manager will continue to follow and assist with discharge planning as needed. If any further discharge needs arise, please contact the covering business case analyst. CINE TECH * Consults, Subsequent - File, Susana Palumbo NP - 06/17/2024 9:00 AM MEDICINE TECH Images from the original note were not [...] last 3 completed shifts: In: 2685 [P.O.:680; I.V.:2005] Out: 1652 [Urine:1650; Blood:2] I/O this shift: [...] or concerns, please page Urology through the beck operator. Susana Tate NP 06/17/2024 CINE TECH * Plan of Care - Nohelia Moore RN - 06/17/2024 5:56 AM CST Goals: Clinical Goals for the Shift: VSS, rest, comfort, safety Summary: VSS. No complaints of pain. Labs drawn and sent - no replacements needed. Good urine output throughout night. Patient resting comfortably in bed. Safety maintained. Care plan ongoing. CINE TECH * Plan of Care - Angeli Spivey RN - 06/16/2024 7:14 PM CST Goals: Clinical Goals for the Shift: VSS, rest, comfort, safety Summary: VSS pt A&Ox4 on RA. Pt made NPO in morning for Urology procedure. Pt in OR for most of afternoon. Pt returned to floor at 1845, post OP vitals initiated. Pt resting in bed with safety measures inplace. CINE TECH * Op Note - Mela Dejesus MD - 06/16/2024 2:37 PM CST Operative Report SURGEON: Mela Dejesus MD SURGICAL TEAM: [employer] Supervisor: Amara Hernandez RN Scrub: Alessandra Petersen RN [...] bladder or urethra. We advanced a 5 mauritian ureteral access catheter into the right ureteral orifice just to the level of the distal ureter. A retrograde pyelogram was performed which revealed a proximal ureteral obstruction with pyelovenous backflow and hydronephrosis proximal to the obstruction. Through the catheter we advanced a sensor wire to the level of the kidney under fluoroscopic guidance. Over the wire, we advanced a 6 mauritian x 26 cm ureteral stent. Removal of [...] - ultrasound in 2 days with KUB CINE TECH CINE TECH * Plan of Care - Nohelia Moore [...] in bed. Safety maintained. Care plan ongoing. CINE TECH * Plan of Care - Angeli Spivey [...] which was unsuccessful in giving blood return, notified. Alteplase instilled in line per order, when alteplase was drawn back out of port, blood return was noted. Pt was started on NS 100 mL/hr per order. Pt started on regular diet, tolerating well. No complaints of N&V. Pt resting in bed with safety measures in place. CINE TECH * Hospital Course - Miguel Angel Martinez [...] the liver, omentum, bone, vaginal cuff - [facility] - On octreotide (monthly) and a clinical trial - Has upcoming liver TACE on Sat CINE TECH * Initial Assessments - Callie Gama RN - 06/15/2024 3:18 PM MEDICINE TECH CM Initial Assessment Interview Note Information Obtained [...] A/B, AARP Supplement Prescription Coverage: Yes Pharmacy: [id number] - [place], [place] - [address] [facility] [phone] [facility] - [place], [place] - [address] [address] [facility] [address] Primary Care Provider: Julio César Briseno MD [...] Collaboration with Patient, Provider, Direct Care Nurse, Real Estate Office Supervisor, and other members of theHealth Care Team to assure needed interventions completed. 2. Return patient to optimal level of self-care post discharge. 3. Nurses' Association Counselor will follow for Discharge Planning - interventions as needed 4. Anticipated level of care at discharge 5. Planned Discharge Disposition Callie Gama RN CINE TECH * Plan of Care - Nati Rousseau RN - 06/15/2024 6:34 AM CST Goals: Clinical Goals for the Shift: VSS, comfort, safety Summary: Pt's VSS. Vomitted a few times at beginning of shift, zofran x1. Still vomitting, made aware, EKG done compazine added given x1. Pt also having anxiety requesting MD norma made aware, atarax ordered and given x1. NPO since midnight. CINE TECH * Assessment & Plan Note - Nasir Lyons MD - 06/14/2024 3:48 PM MEDICINE TECH Associated Problem(s): Anxiety She reports taking duloxetine 30 daily for over a year. Will continue that CINE TECH * Assessment & Plan Note - Nasir Lyons MD - 06/14/2024 3:47 PM MEDICINE TECH Associated Problem(s): Hypothyroidism Home synthroid CINE TECH * Assessment & Plan Note - Dana Barajas MD - 06/14/2024 3:47 PM MEDICINE TECH Associated Problem(s): HTN (hypertension) Home amlodipine. Losartan held throughout admission due to ANNE-MARIE and blood pressure reasonably controlled on amlodipine. 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 UA not c/f infection. Might be from mild obstruction vs could have lavern stone which has passed. CT abdomen shows new mild hydroureteronephrosis possible secondary to partial obstruction from retroperitoneal adenopathy -Pain control w/ tylenol, lido patch, ok for low dose opioids. -Management as per above -pain improved with stent placement CINE TECH CINE TECH CINE TECH * Assessment & Plan Note - Dana Barajas MD - 06/14/2024 3:45 PM MEDICINE TECH Associated Problem(s): ANNE-MARIE (acute kidney injury) (HCC) [...] hematuria post stent which has now resolved CINE TECH CINE TECH CINE TECH CINE TECH CINE TECH CINE TECH CINE TECH * Assessment & Plan Note - Dana Barajas MD - 06/14/2024 3:42 PM MEDICINE TECH Associated Problem(s): Vomiting Likely related to ANNE-MARIE and R ureteral process. -Improved and tolerating oral intake -PPI IV BID->oral BID for now. -Nausea control. Pain control. CINE TECH CINE TECH CINE TECH CINE TECH * ED Re-evaluation Note - Sabrina Riggs DO - 06/14/2024 6:48 AM MEDICINE TECH ED Re-evaluation TRANSITION OF CARE: Sabrina Delgado [...] patient. By: Stu Huang MD Time: 06/14 0151 Comment: CT read shows increased cancer burden [...] Prabakar, Ashley Christen, DO Resident 06/14/24 0702 CINE TECH * ED Pre-Arrival Note - Mary Alva RN - 06/13/2024 6:30 PM MEDICINE TECH Pre-Arrival Note Pt coming from cancer care clinic d/t hypertension. Pt presented with nausea and vomiting. Hypertensive to 220's. Coming to ED for further eval. Mary Alva RN CINE TECH documented in this encounter Plan of Treatment Pending Results Name Type Priority Associated Diagnoses Date /Time Pro B-type natriuretic peptide Lab STAT 06/14/2024 12:23 AM MEDICINE TECH Scheduled Orders Name Type Priority Associated Diagnoses Orde r Schedule Pro B-type natriuretic peptide Lab STAT Once for 1 Occur rences starting 06/14/2024 until 06/14/2024 documented as of this encounter Procedures Procedure Name Priority Date/Time Associated Diagnosis Comments EGFR Routine 06/20/2024 12:59 AM MEDICINE TECH DIFFERENTIAL AUTO Routine 06/20/2024 12:59 AM MEDICINE TECH CBC WITH AUTO DIFFERENTIAL Routine 06/20/2024 12:59 AM MEDICINE TECH MAGNESIUM Routine 06/20/2024 12:59 AM MEDICINE TECH HEPATIC FUNCTION PANEL Routine 06/20/2024 12:59 AM MEDICINE TECH BASIC METABOLIC PANEL Routine 06/20/2024 12:59 AM MEDICINE TECH EMBOLIZATION ORGAN ISCHEMIA OR INFARCTION Schedule Routine, Read Routine (OP Routine) 06/19/2024 11:17 AM MEDICINE TECH 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) BIOPSY LIVER Schedule Routine, Read Routine (OP Routine) 06/19/2024 9:00 AM MEDICINE TECH 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) SURGICAL PATHOLOGY Routine 06/19/2024 8: 53 AM MEDICINE TECH ANNE-MARIE (acute kidney injury) (HCC) 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 History of malignant neuroendocrine tumor 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) EGFR Routine 06/19/2024 1:56 AM MEDICINE TECH DIFFERENTIAL AUTO Routine 06/19/2024 1:5 6 AM MEDICINE TECH CBC WITH AUTO DIFFERENTIAL Routine 06/19/2024 1:56 AM MEDICINE TECH MAGNESIUM Routine 06/19/2024 1:56 AM MEDICINE TECH HEPATIC FUNCTION PANEL Routine 06/19/2024 1:56 AM MEDICINE TECH BASIC METABOLIC PANEL Routine 06/19/2024 1:56 AM MEDICINE TECH US KIDNEY COMPLETE IP Routine 06/18/2024 3: 53 PM MEDICINE TECH XR ABDOMEN AP 1 VIEW IP Routine 06/18/2024 5:54 AM MEDICINE TECH EGFR Routine 06/18/2024 1:37 AM MEDICINE TECH CBC WITH AUTO DIFFERENTIAL Routine 06/18/2024 1:37 AM MEDICINE TECH MANUAL DIFFERENTIAL Routine 06/18/2024 1 :37 AM MEDICINE TECH MAGNESIUM Routine 06/18/2024 1:37 AM MEDICINE TECH HEPATIC FUNCTION PANEL Routine 06/18/2024 1:37 AM MEDICINE TECH BASIC METABOLIC PANEL Routine 06/18/2024 1:37 AM MEDICINE TECH TRANSTHORACIC ECHO (TTE) COMPLETE W DOPPLER/CF W CONTRAST Routine 06/17/2024 4:25 PM MEDICINE TECH EGFR Routine 06/17/2024 1:25 AM MEDICINE TECH CBC WITH AUTO DIFFERENTIAL Routine 06/17/2024 1:25 AM MEDICINE TECH MANUAL DIFFERENTIAL Routine 06/17/2024 1 :25 AM MEDICINE TECH MAGNESIUM Routine 06/17/2024 1:25 AM MEDICINE TECH HEPATIC FUNCTION PANEL Routine 06/17/2024 1:25 AM MEDICINE TECH BASIC METABOLIC PANEL Routine 06/17/2024 1:25 AM MEDICINE TECH FL FLUOROSCOPY < 1 HOUR IP Routine 06/16/2024 3:37 PM MEDICINE TECH PYELOGRAM - RETROGRADE 06/16/2024 3:03 PM MEDICINE TECH ANNE-MARIE (acute kidney injury) (HCC) 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 PLACEMENT STENT - URETERAL 06/16/2024 3:03 PM MEDICINE TECH ANNE-MARIE (acute kidney injury) (HCC) 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 CYSTOSCOPY 06/16/2024 3:03 PM MEDICINE TECH ANNE-MARIE (acute kidney injury) (HCC) 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 EGFR Routine 06/16/2024 12:50 AM MEDICINE TECH CBC WITH AUTO DIFFERENTIAL Routine 06/16/2024 12:50 AM MEDICINE TECH MANUAL DIFFERENTIAL Routine 06/16/2024 12:50 AM MEDICINE TECH MAGNESIUM Routine 06/16/2024 12:50 AM MEDICINE TECH HEPATIC FUNCTION PANEL Routine 06/16/2024 12:50 AM MEDICINE TECH BASIC METABOLIC PANEL Routine 06/16/2024 12:50 AM MEDICINE TECH EGFR Routine 06/15/2024 1:26 AM MEDICINE TECH CBC WITH AUTO DIFFERENTIAL Routine 06/15/2024 1:26 AM MEDICINE TECH MANUAL DIFFERENTIAL Routine 06/15/2024 1 :26 AM MEDICINE TECH MAGNESIUM Routine 06/15/2024 1:26 AM MEDICINE TECH HEPATIC FUNCTION PANEL Routine 06/15/2024 1:26 AM MEDICINE TECH BASIC METABOLIC PANEL Routine 06/15/2024 1:26 AM MEDICINE TECH ECG 12-LEAD Routine 06/14/2024 8:[address] ABDOMEN PELVIS W CONTRAST ED 06/14/2024 2:26 AM MEDICINE TECH EGFR STAT 06/14/2024 12:23 AM MEDICINE TECH DIFFERENTIAL AUTO STAT 06/14/2024 12:23 AM MEDICINE TECH PRO B-TYPE NATRIURETIC PEPTIDE STAT 06/14/2024 12:23 AM MEDICINE TECH CBC WITH AUTO DIFFERENTIAL STAT 06/14/2024 12:23 AM MEDICINE TECH COMPREHENSIVE METABOLIC PANEL STAT 06/14/2024 12:23 AM MEDICINE TECH documented in this encounter Results * (ABNORMAL) eGFR (06/20/2024 12:59 AM MEDICINE TECH) eGFR 38(L) >=60 mL/min/1. 73 m2 Comment: [...] reviewed 2021. Blood 06/20/2024 12:5 9 AM MEDICINE TECH 06/20/2024 1:19 AM MEDICINE TECH us Nasir Lyons MD LAB BLOOD ORDERABLES Mel badillo Result [facility] [place] [address] * (ABNORMAL) Differential, auto (06/20/2024 12:59 AM MEDICINE TECH) Pathologist [facility] Neutrophil abs 5.8 1.5 - 6.5 K/cumm Imm gran abs 0.1 0.0 - 0.1 K/cumm [facility] Lymphocyte abs 2.3 0.8 - 3.3 K/cumm [facility] Monocyte abs 2.7(H) 0.2 - 0.8 K/cumm [facility] Eosinophil abs 0.0 0.0 - 0.5 K/cumm [facility] Basophil abs 0.0 0.0 - 0.1 K/cumm [facility] Neutrophil pct 52.9 % [facility] Comment: Consistent with previous result Interpretive Data Percent cell count reference ranges are not reported, since discordance with absolute values may lead to misinterpretation of CBC data. Current Interpretive Data was last revised on 2017. Imm gran pct 0.5 % [facility] Comment: Interpretive Data Percent cell count reference ranges are not reported, since discordance with absolute values may lead to misinterpretation of CBC data. Current Interpretive Data was last revised on 2017. Lymphocyte pct 21.0 % [facility] Comment: Interpretive Data Percent cell count reference ranges are not reported, since discordance with absolute values may lead to misinterpretation of CBC data. Current Interpretive Data was last revised on 2017. Monocyte pct 24.9 % [facility] Comment: Interpretive Data Percent cell count reference ranges are not reported, since discordance with absolute values may lead to misinterpretation of CBC data. Current Interpretive Data was last revised on 2017. Eosinophil pct 0.3 % [facility] Comment: Interpretive [...] on 2017. Blood 06/20/2024 12:5 9 AM MEDICINE TECH 06/20/2024 1:20 AM MEDICINE TECH Nasir Lyons MD LAB BLOOD ORDERABLES Mel l Result Performing Organization Address City/[facility]/ZIP Co de Phone Number [facility] [place] [address] * Magnesium (06/20/2024 12:59 AM MEDICINE TECH) Magnesium 1.4 1.4 - 2.5 mg/dL Blood 06/20/2024 12:5 9 AM MEDICINE TECH 06/20/2024 1:19 AM MEDICINE TECH Nasir Lyons MD LAB BLOOD ORDERABLES Mel l Result Performing Organization Address City/[facility]/ZIP Co de Phone Number [facility] [place] [address] * (ABNORMAL) Hepatic function panel (06/20/2024 12:59 AM MEDICINE TECH) [facility] Bilirubin, total 0.6 0.1 - 1.2 mg/dL Bilirubin, direct <0.2 0.1 - 0.3 mg/dL [facility] Protein, pl 6.2(L) 6.5 - 8.5 g/dL [facility] Albumin 3.8 3.5 - 5.0 g/dL [facility] Alk phos 85 40 - 130 Units/L [facility] ALT 164(H) 7 - 45 Units/L [facility] Comment:Reviewed AST 433(H) 10 - 45 Units/L [facility] Comment:Reviewed Blood 06/20/2024 12:5 9 AM MEDICINE TECH 06/20/2024 1:19 AM MEDICINE TECH Nasir Lyons MD LAB BLOOD ORDERABLES Mel l Result [facility] [place] [address] * (ABNORMAL) CBC with auto differential (06/20/2024 12:59 AM MEDICINE TECH) [facility] WBC 11.0(H) 3.8 - 9.9 K/cumm Hgb 10.8(L) 11.9 - 15.5 g/dL [facility] Hct 33.7(L) 35.6 - 45.5 % [facility] Plt 133(L) 150 - 400 K/cumm [facility] MPV 10.2 9.1 - 12.3 fL [facility] RBC 3.45(L) 3.90 - 5.20 M/cumm [facility] MCV 97.7(H) 81.3 - 96.4 fL [facility] MCH 31.3 27.1 - 33.3 pg [facility] MCHC 32.0(L) 32.3 - 35.7 g/dL [facility] RDW CV 14.6 11.1 - 14.9 % [facility] RDW SD 52.6(H) 35.7 - 48.1 fL [facility] NRBC abs 0.00 0.00 - 0.01 K/cumm [facility] Blood 06/20/2024 12:5 9 AM MEDICINE TECH 06/20/2024 1:20 AM MEDICINE TECH Nasir Lyons MD LAB BLOOD ORDERABLES Mel l Result [facility] Department [place] [address] * (ABNORMAL) Basic metabolic panel (06/20/2024 12:59 AM MEDICINE TECH) Sodium 138 135 - 145 mmol/L Potassium, pl 3.5 3.3 - 4.9 mmol/L [facility] Chloride 105 97 - 110 mmol/L [facility] CO2 25 22 - 32 mmol/L [facility] Anion gap 8 2 - 15 mmol/L [facility] BUN 12 6 - 25 mg/dL [facility] Creatinine 1.44(H) 0.60 - 1.10 mg/dL [facility] Glucose 123 70 - 199 mg/dL [facility] Calcium 8.1(L) 8.5 - 10.3 mg/dL [facility] Blood 06/20/2024 12:5 9 AM MEDICINE TECH 06/20/2024 1:19 AM MEDICINE TECH Nasir Lyons MD LAB BLOOD ORDERABLES Mel badillo Result [facility] [place] [address] * IR Embolization Tumor Organ Ischemia or Infarction (06/19/2024 11:17 AM MEDICINE TECH) Anatomical Region Laterality Modality Body N/A X-Ray Angiograph y 06/19/2024 4:13 PM MEDICINE TECH Impressions 06/19/2024 4:15 PM MEDICINE TECH Successful diagnostic angiography and chemo-embolization of the right posterior liver using 25 mg doxorubicin and Ethiodol and Gelfoam. PLAN: Interventional radiology will coordinate outpatient follow-up. Dictated by: Dar Willett M.D. The radiology attending physician has personally reviewed this study, and had reviewed and/or edited this written report and agrees with it. Electronically signed by: Mikey Meraz M.D. Narrative 06/19/2024 4:15 PM MEDICINE TECH EXAMINATION: ??DIAGNOSTIC VISCERAL ANGIOGRAPHY AND TRANSARTERIAL CHEMOEMBOLIZATION [...] was obtained. Prior to beginning the procedure, [place] Protocol was performed to confirm the patient's [...] the patent vessel was recorded. A 6 Dominican sheath was placed and connected to a heparinized saline drip. Using fluoroscopic guidance, the following arteries were catheterized and selective diagnostic angiograms were performed: Common hepatic artery with Nancy CT Posterior division of the right hepatic artery (3rd order) The equipment used for catheterization was 5 Dominican LEV catheter and a Glidewire. ??The equipment used for selective catheterization was 2.7-Dominican Progreat catheter and a fathom wire. The [...] was obtained. Prior to beginning the procedure, [place] Protocol was performed to confirm the patient's [...] the patent vessel was recorded. A 6 Dominican sheath was placed and connected to a heparinized saline drip. Using fluoroscopic guidance, the following arteries were catheterized and selective diagnostic angiograms were performed: Common hepatic artery with Nancy CT Posterior division of the right hepatic artery (3rd order) The equipment used for catheterization was 5 Dominican LEV catheter and a Glidewire. The equipment used for selective catheterization was 2.7-Dominican Progreat catheter and a fathom wire. The [...] * IR Biopsy Liver (06/19/2024 9:00 AM MEDICINE TECH) Anatomical Region Laterality Modality Body N/A Computed Tomogra phy 06/19/2024 4:01 PM MEDICINE TECH Impressions 06/19/2024 4:10 PM MEDICINE TECH Successful image-guided core biopsy of a segment IVb hepatic lesion. PLAN: Patient will proceed to the interventional radiology area for chemoembolization. Dictated by: Dar Willett M.D. The radiology attending physician has personally reviewed this study, and had reviewed and/or edited this written report and agrees with it. Electronically signed by: Mikey Meraz M.D. Narrative 06/19/2024 4:10 PM MEDICINE TECH EXAMINATION: IMAGE-GUIDED BIOPSY OF LIVER HISTORY/INDICATION: 73-year-old [...] was obtained. Prior to beginning the procedure, [place] Protocol was performed to confirm the patient's [...] was obtained. Prior to beginning the procedure, [place] Protocol was performed to confirm the patient's [...] IM IR PROCEDURES Mel l Result * Surgical pathology (06/19/2024 8:53 AM MEDICINE TECH) Tissue (Soft tissue biopsy) 06/19/2024 8:53 AM MEDICINE TECH Narrative PATHOLOGY [facility] - 06/23/2024 3:41 PM MEDICINE TECH EPIC results best viewed via link to PDF [facility] [place] [address] Note to Patients: This report may contain [...] PATHOLOGY REPORT FINAL Patient Name: ?? LA CUHNG Gender: ??F : ??[id number] (Age: 73) Address: ??[address], [place], [place] ??[address] Hospital #: ??[id number] Taken:06/19/2024 Received:06/19/2024 Reported: 06/23/2024 Patient Type: [facility] Inpatient ?? Service: Oncology Location: [facility] ??[address] Physician(s): ??MD Julio César Serrato M.D. Diagnosis: [...] and Flow Cytometry Departments at [facility] as part of an ongoing quality control specialist program and in compliance with federally mandated [...] and Flow Cytometry Departments of [facility]. ??It has not been cleared or approved by the U. S. Food and Drug Administration. IMAGES AND SCANNED DOCUMENTS, IF INCLUDED, ONLY VIEWABLE IN PDF VERSION OF REPORT us Dana Barajas MD LAB PATHOLOGY ORDERABLES Fin al Result PATHOLOGY [facility] 3rd Floor [place], [place] [phone] * (ABNORMAL) eGFR (06/19/2024 1:56 AM MEDICINE TECH) eGFR 37(L) >=60 mL/min/1. 73 m2 Comment: [...] last reviewed 2021. Blood 06/19/2024 1:56 AM MEDICINE TECH 06/19/2024 2:31 AM MEDICINE TECH us Nasir Lyons MD LAB BLOOD ORDERABLES Mel badillo Result [facility] [place] [address] * (ABNORMAL) Differential, auto (06/19/2024 1:56 AM MEDICINE TECH) Neutrophil abs 2.1 1.5 - 6.5 K/cumm Imm gran abs 0.0 0.0 - 0.1 K/cumm [facility] Lymphocyte abs 2.7 0.8 - 3.3 K/cumm [facility] Monocyte abs 4.0(H) 0.2 - 0.8 K/cumm [facility] Eosinophil abs 0.1 0.0 - 0.5 K/cumm [facility] Basophil abs 0.0 0.0 - 0.1 K/cumm [facility] Neutrophil pct 23.5 % [facility] Comment: Confirmed by smear review Interpretive Data Percent cell count reference ranges are not reported, since discordance with absolute values may lead to misinterpretation of CBC data. Current Interpretive Data was last revised on 2017. Imm gran pct 0.3 % [facility] Comment: Interpretive Data Percent cell count reference ranges are not reported, since discordance with absolute values may lead to misinterpretation of CBC data. Current Interpretive Data was last revised on 2017. Lymphocyte pct 30.2 % [facility] Comment: Interpretive Data Percent cell count reference ranges are not reported, since discordance with absolute values may lead to misinterpretation of CBC data. Current Interpretive Data was last revised on 2017. Monocyte pct 44.4 % [facility] Comment: Interpretive Data Percent cell count reference ranges are not reported, since discordance with absolute values may lead to misinterpretation of CBC data. Current Interpretive Data was last revised on 2017. Eosinophil pct 1.3 % [facility] Comment: Interpretive Data Percent cell count reference ranges are not reported, since discordance with absolute values may lead to misinterpretation of CBC data. Current Interpretive Data was last revised on 2017. Basophil pct 0.3 % [facility] Comment: Interpretive Data Percent cell count reference ranges are not reported, since discordance with absolute values may lead to misinterpretation of CBC data. Current Interpretive Data was last revised on 2017. Blood 06/19/2024 1:56 AM MEDICINE TECH 06/19/2024 2:32 AM MEDICINE TECH Nasir Lyons MD LAB BLOOD ORDERABLES Mel l Result Performing Organization Address [facility] Co de Phone Number [facility] [place] [address] * Magnesium (06/19/2024 1:56 AM MEDICINE TECH) Magnesium 1.6 1.4 - 2.5 mg/dL Blood 06/19/2024 1:56 AM MEDICINE TECH 06/19/2024 2:31 AM MEDICINE TECH Nasir Lyons MD LAB BLOOD ORDERABLES Mel l Result Performing Organization Address City/[facility] Co de Phone Number [facility] [place] [address] * (ABNORMAL) Hepatic function panel (06/19/2024 1:56 AM MEDICINE TECH) [facility] Bilirubin, total 0.4 0.1 - 1.2 mg/dL Bilirubin, direct <0.2 0.1 - 0.3 mg/dL [facility] Protein, pl 5.9(L) 6.5 - 8.5 g/dL [facility] Albumin 3.5 3.5 - 5.0 g/dL [facility] Alk phos 61 40 - 130 Units/L [facility] ALT 5(L) 7 - 45 Units/L [facility] AST 21 10 - 45 Units/L [facility] Blood 06/19/2024 1:56 AM MEDICINE TECH 06/19/2024 2:31 AM MEDICINE TECH us Nasir Lyons MD LAB BLOOD ORDERABLES Mel badillo Result [facility] [place] [address] * (ABNORMAL) CBC with auto differential (06/19/2024 1:56 AM MEDICINE TECH) [facility] WBC 9.1 3.8 - 9.9 K/cumm Hgb 10.1(L) 11.9 - 15.5 g/dL [facility] Hct 31.7(L) 35.6 - 45.5 % [facility] Plt 148(L) 150 - 400 K/cumm [facility] MPV 10.9 9.1 - 12.3 fL [facility] RBC 3.24(L) 3.90 - 5.20 M/cumm [facility] MCV 97.8(H) 81.3 - 96.4 fL [facility] MCH 31.2 27.1 - 33.3 pg [facility] MCHC 31.9(L) 32.3 - 35.7 g/dL [facility] RDW CV 14.3 11.1 - 14.9 % [facility] RDW SD 51.9(H) 35.7 - 48.1 fL [facility] NRBC abs 0.00 0.00 - 0.01 K/cumm [facility] Blood 06/19/2024 1:56 AM MEDICINE TECH 06/19/2024 2:32 AM MEDICINE TECH Nasir Lyons MD LAB BLOOD ORDERABLES Mel l Result [facility] [place] [address] * (ABNORMAL) Basic metabolic panel (06/19/2024 1:56 AM MEDICINE TECH) [facility] Sodium 141 135 - 145 mmol/L Potassium, pl 3.8 3.3 - 4.9 mmol/L [facility] Chloride 107 97 - 110 mmol/L [facility] CO2 24 22 - 32 mmol/L [facility] Anion gap 10 2 - 15 mmol/L [facility] BUN 14 6 - 25 mg/dL [facility] Creatinine 1.48(H) 0.60 - 1.10 mg/dL [facility] Glucose 121 70 - 199 mg/dL [facility] Calcium 8.4(L) 8.5 - 10.3 mg/dL [facility] Blood 06/19/2024 1:56 AM MEDICINE TECH 06/19/2024 2:31 AM MEDICINE TECH Nasir Lyons MD LAB BLOOD ORDERABLES Mel l Result Performing Organization Address City/[facility]/ZIP Co de Phone Number [facility] [place] [address] * US Kidney Complete (06/18/2024 3:53 PM MEDICINE TECH) Anatomical Region Laterality Modality Kidney N/A Ultrasound 06/18/2024 3:55 PM MEDICINE TECH Impressions 06/18/2024 4:09 PM MEDICINE TECH 1. ??No hydronephrosis. ??Previously described right-sided hydronephrosis has resolved. 2. ??Normal renal echogenicity. Dictated by: Greyson Anthony M.D. The radiology attending physician has personally reviewed this study, and had reviewed and/or edited this written report and agrees with it. Electronically signed by: Immanuel Bennett M.D. Narrative 06/18/2024 4:09 PM MEDICINE TECH EXAMINATION: COMPLETE RENAL SONOGRAM HISTORY: ??Metastatic neuroendocrine [...] Abdomen Ap 1 Vw (06/18/2024 5:54 AM MEDICINE TECH) Anatomical Region Laterality Modality Body, Abdomen N/A Computed Radiogr aphy 06/18/2024 11:3 4 AM MEDICINE TECH Impressions 06/18/2024 11:44 AM MEDICINE TECH A single view of the abdomen is [...] Brock Malik M.D. Narrative 06/18/2024 11:44 AM MEDICINE TECH EXAMINATION: Abdomen, one view. HISTORY: Check stent [...] * (ABNORMAL) Manual Differential (06/18/2024 1:37 AM MEDICINE TECH) Differential Manual Cells Counted 114 [facility] Neutrophil abs 3.2 1.5 - 6.5 K/cumm [facility] Imm gran abs 0.0 0.0 - 0.1 K/cumm [facility] Lymphocyte abs 4.8(H) 0.8 - 3.3 K/cumm [facility] Monocyte abs 1.0(H) 0.2 - 0.8 K/cumm [facility] Neutrophil pct 36.0 % [facility] Comment: Interpretive Data Percent cell count reference ranges are not reported, since discordance with absolute values may lead to misinterpretation of CBC data. Current Interpretive Data was last revised on 2017. Lymphocyte pct 53.5 % [facility] Comment: Interpretive Data Percent cell count reference ranges are not reported, since discordance with absolute values may lead to misinterpretation of CBC data. Current Interpretive Data was last revised on 2017. Monocyte pct 10.5 % [facility] Comment: Interpretive Data Percent cell count reference ranges are not reported, since discordance with absolute values may lead to misinterpretation of CBC data. Current Interpretive Data was last revised on 2017. Blood 06/18/2024 1:37 AM MEDICINE TECH 06/18/2024 2:16 AM MEDICINE TECH us Nasir Lyons MD LAB BLOOD ORDERABLES Mel aby Result [facility] One [facility] [place] [address] * (ABNORMAL) eGFR (06/18/2024 1:37 AM MEDICINE TECH) eGFR 33(L) >=60 mL/min/1. 73 m2 Comment: [...] last reviewed 2021. Blood 06/18/2024 1:37 AM MEDICINE TECH 06/18/2024 2:11 AM MEDICINE TECH Nasir Lyons MD LAB BLOOD ORDERABLES Mel l Result Performing Organization Address [facility] de Phone Number [facility] [place] [address] * Magnesium (06/18/2024 1:37 AM MEDICINE TECH) Magnesium 1.6 1.4 - 2.5 mg/dL Blood 06/18/2024 1:37 AM MEDICINE TECH 06/18/2024 2:11 AM MEDICINE TECH Nasir Lyons MD LAB BLOOD ORDERABLES Mel l Result Performing Organization Address [facility] de Phone Number [facility] [place] [address] * (ABNORMAL) Hepatic function panel (06/18/2024 1:37 AM MEDICINE TECH) [facility] Bilirubin, total 0.5 0.1 - 1.2 mg/dL Bilirubin, direct <0.2 0.1 - 0.3 mg/dL [facility] Protein, pl 6.0(L) 6.5 - 8.5 g/dL [facility] Albumin 3.7 3.5 - 5.0 g/dL [facility] Alk phos 62 40 - 130 Units/L [facility] ALT 11 7 - 45 Units/L [facility] AST 24 10 - 45 Units/L [facility] Blood 06/18/2024 1:37 AM MEDICINE TECH 06/18/2024 2:11 AM MEDICINE TECH Nasir Lyons MD LAB BLOOD ORDERABLES Mel badillo Result [facility] [place] [address] * (ABNORMAL) CBC with auto differential (06/18/2024 1:37 AM MEDICINE TECH) [facility] WBC 9.0 3.8 - 9.9 K/cumm Hgb 10.2(L) 11.9 - 15.5 g/dL [facility] Hct 32.0(L) 35.6 - 45.5 % [facility] Plt 155 150 - 400 K/cumm [facility] MPV 10.4 9.1 - 12.3 fL [facility] RBC 3.28(L) 3.90 - 5.20 M/cumm [facility] MCV 97.6(H) 81.3 - 96.4 fL [facility] MCH 31.1 27.1 - 33.3 pg [facility] MCHC 31.9(L) 32.3 - 35.7 g/dL [facility] RDW CV 14.6 11.1 - 14.9 % [facility] RDW SD 52.8(H) 35.7 - 48.1 fL [facility] NRBC abs 0.00 0.00 - 0.01 K/cumm [facility] Blood 06/18/2024 1:37 AM MEDICINE TECH 06/18/2024 2:13 AM MEDICINE TECH Nasir Lyons MD LAB BLOOD ORDERABLES Mel l Result Performing Organization Address [facility]/ZIP Co de Phone Number [facility] One [facility] [place] [address] * (ABNORMAL) Basic metabolic panel (06/18/2024 1:37 AM MEDICINE TECH) Pathologist [facility] Sodium 141 135 - 145 mmol/L Potassium, pl 3.2(L) 3.3 - 4.9 mmol/L [facility] Chloride 107 97 - 110 mmol/L [facility] CO2 26 22 - 32 mmol/L [facility] Anion gap 8 2 - 15 mmol/L [facility] BUN 14 6 - 25 mg/dL [facility] Creatinine 1.62(H) 0.60 - 1.10 mg/dL [facility] Glucose 95 70 - 199 mg/dL [facility] Calcium 8.1(L) 8.5 - 10.3 mg/dL [facility] Blood 06/18/2024 1:37 AM MEDICINE TECH 06/18/2024 2:11 AM MEDICINE TECH Nasir Lyons MD LAB BLOOD ORDERABLES Mel l Result [facility] [place] [address] * TRANSTHORACIC ECHO (TTE) COMPLETE W DOPPLER/CF W CONTRAST (06/17/2024 4:25 PM MEDICINE TECH) LV EF 66 % [facility] Anatomical Region Laterality Modality Ultrasound 06/17/2024 3:00 PM MEDICINE TECH Narrative 06/17/2024 5:02 PM MEDICINE TECH Patient name: La Chung Date of test: 06/17/2024 Type of test: TTE w/Doppler Hospital #: 0 Date of : 1950 (F) [employer] Operator: MICHAEL Blankenship Referring Physician: DANA BARAJAS MD Contrast Agent: 1.1 ml Optison Administered, (1.9 ml wasted). Contrast Administered by: Supervised/Interpreted by: Parth ??MD April Diagnosis: Location: [facility] Reason for test: Shortness of Breath [...] 2=Hypo 3=Akinetic 4=Dyskin./Aneurysm 0=Not visualized) Parasternal Long [place]:MAS=1 BAS=1 MIL=1 ALLEY=1 Parasternal Short [place]:MAS=1 MIS=1 CO=1 MIL=1 MAL=1 MA=1 Apical 4 Chambers:=1 MIS=1 BIS=1 BAL=1 MAL=1 AL=1 AC=1 Apical 2 Chambers:AI=1 CO=1 BI=1 BA=1 MA=1 AA=1 AC=1 LV Global Longitudinal Strain: -16% ??(Normal <-17%) RV Global Longitudinal Strain: LV Function: Normal LV Ejection Fraction, ??(EF=54-74%) RV Function: Normal Septal Motion: Normal Pericardial Effusion: trace Atrial Septum: Normal DOPPLER/COLOR FLOW DOPPLER RESULTS: Diastolic Function: Grade I, altered relax. w/N. LA pres. Tricuspid Valve: normal TV Pulmonic Valve: Mild MI AV Regurgitation: No AR seen AV Stenosis: [...] no , no MS, normal TV, Mild MI. Diastolic function: Grade I, altered relax. w/N. [...] April By signing this report, the attending nursing agency manager certifies that he or she has personally supervised and interpreted the echocardiogram and has reviewed and or edited and agrees with the written comments contained within the report. Procedure Note Parth Chen MD - 06/17/2024 Patient name: La Chung Date of test: 06/17/2024 Type of test: [facility] #: 0 Date of : 1950 (F) [employer] Refinery Operator: MICHAEL Blankenship Referring Physician: DANA BARAJAS MD Contrast Agent: 1.1 ml Optison Administered, (1.9 ml wasted). Contrast Administered by: Supervised/Interpreted by: Parth Chen MD Diagnosis: Location: [facility] Reason for test: Shortness of Breath [...] 2=Hypo 3=Akinetic 4=Dyskin./Aneurysm 0=Not visualized) Parasternal Long [place]:MAS=1 BAS=1 MIL=1 ALLEY=1 Parasternal Short [place]:MAS=1 MIS=1 CO=1 MIL=1 MAL=1 MA=1 Apical 4 Chambers:=1 MIS=1 BIS=1 BAL=1 MAL=1 AL=1 AC=1 Apical 2 Chambers:AI=1 CO=1 BI=1 BA=1 MA=1 AA=1 AC=1 LV Global Longitudinal Strain: -16% (Normal <-17%) RV Global Longitudinal Strain: LV Function: Normal LV Ejection Fraction, (EF=54-74%) RV Function: Normal Septal Motion: Normal Pericardial Effusion: trace Atrial Septum: Normal DOPPLER/COLOR FLOW DOPPLER RESULTS: Diastolic Function: Grade I, altered relax. w/N. LA pres. Tricuspid Valve: normal TV Pulmonic Valve: Mild MI AV Regurgitation: No AR seen AV Stenosis: [...] no , no MS, normal TV, Mild MI. Diastolic function: Grade I, altered relax. w/N. [...] MD By signing this report, the attending nursing agency manager certifies that he or she has personally supervised and interpreted the echocardiogram and has reviewed and or edited and agrees with the written comments contained within the report. us Dana Barajas MD CV ECHO PROCEDURES Final Res ult * (ABNORMAL) Manual Differential (06/17/2024 1:25 AM MEDICINE TECH) Differential Manual Cells Counted 126 [facility] Neutrophil abs 2.8 1.5 - 6.5 K/cumm [facility] Imm gran abs 0.1 0.0 - 0.1 K/cumm [facility] Lymphocyte abs 6.9(H) 0.8 - 3.3 K/cumm [facility] Monocyte abs 1.5(H) 0.2 - 0.8 K/cumm [facility] Neutrophil pct 24.6 % [facility] Comment: Interpretive Data Percent cell count reference ranges are not reported, since discordance with absolute values may lead to misinterpretation of CBC data. Current Interpretive Data was last revised on 2017. Lymphocyte pct 60.3 % [facility] Comment: Interpretive Data Percent cell count reference ranges are not reported, since discordance with absolute values may lead to misinterpretation of CBC data. Current Interpretive Data was last revised on 2017. Monocyte pct 13.5 % [facility] Comment: Interpretive Data Percent cell count reference ranges are not reported, since discordance with absolute values may lead to misinterpretation of CBC data. Current Interpretive Data was last revised on 2017. Metamyelocyte pct 0.8 % [facility] Variant lymph pct 0.8 % [facility] Blood 06/17/2024 1:25 AM MEDICINE TECH 06/17/2024 1:54 AM MEDICINE TECH us Nasir Lyons MD LAB BLOOD ORDERABLES Mel badilol Result [facility] One [facility] [place] [address] * (ABNORMAL) eGFR (06/17/2024 1:25 AM MEDICINE TECH) eGFR 32(L) >=60 mL/min/1. 73 m2 Comment: [...] last reviewed 2021. Blood 06/17/2024 1:25 AM MEDICINE TECH 06/17/2024 1:49 AM MEDICINE TECH Nasir Lyons MD LAB BLOOD ORDERABLES Mel l Result Performing Organization Address [facility] Co de Phone Number [facility] [place] [address] * Magnesium (06/17/2024 1:25 AM MEDICINE TECH) Magnesium 1.8 1.4 - 2.5 mg/dL Blood 06/17/2024 1:25 AM MEDICINE TECH 06/17/2024 1:49 AM MEDICINE TECH Nasir Lyons MD LAB BLOOD ORDERABLES Mel l Result Performing Organization Address City/[facility] Co de Phone Number [facility] [place] [address] * Hepatic function panel (06/17/2024 1:25 AM MEDICINE TECH) Bilirubin, total 0.6 0.1 - 1.2 mg/dL Bilirubin, direct <0.2 0.1 - 0.3 mg/dL [facility] Comment:Reviewed Protein, pl 6.6 6.5 - 8.5 g/dL [facility] Albumin 3.9 3.5 - 5.0 g/dL [facility] Alk phos 75 40 - 130 Units/L [facility] ALT 11 7 - 45 Units/L [facility] AST 25 10 - 45 Units/L [facility] Blood 06/17/2024 1:25 AM MEDICINE TECH 06/17/2024 1:49 AM MEDICINE TECH Nasir Lyons MD LAB BLOOD ORDERABLES Mel l Result Performing Organization Address City/[facility]/ZIP Co de Phone Number [facility] [place] [address] * (ABNORMAL) CBC with auto differential (06/17/2024 1:25 AM MEDICINE TECH) [facility] WBC 11.3(H) 3.8 - 9.9 K/cumm Hgb 11.4(L) 11.9 - 15.5 g/dL [facility] Hct 35.1(L) 35.6 - 45.5 % [facility] Plt 156 150 - 400 K/cumm [facility] MPV 10.1 9.1 - 12.3 fL [facility] RBC 3.62(L) 3.90 - 5.20 M/cumm [facility] MCV 97.0(H) 81.3 - 96.4 fL [facility] MCH 31.5 27.1 - 33.3 pg [facility] MCHC 32.5 32.3 - 35.7 g/dL [facility] RDW CV 14.6 11.1 - 14.9 % [facility] RDW SD 52.3(H) 35.7 - 48.1 fL [facility] NRBC abs 0.00 0.00 - 0.01 K/cumm [facility] Blood 06/17/2024 1:25 AM MEDICINE TECH 06/17/2024 1:50 AM MEDICINE TECH Nasir Lyons MD LAB BLOOD ORDERABLES Mel l Result [facility] [place] [address] * (ABNORMAL) Basic metabolic panel (06/17/2024 1:25 AM MEDICINE TECH) Sodium 142 135 - 145 mmol/L Potassium, pl 3.6 3.3 - 4.9 mmol/L [facility] Chloride 107 97 - 110 mmol/L [facility] CO2 22 22 - 32 mmol/L [facility] Anion gap 13 2 - 15 mmol/L [facility] BUN 15 6 - 25 mg/dL [facility] Creatinine 1.65(H) 0.60 - 1.10 mg/dL [facility] Glucose 107 70 - 199 mg/dL [facility] [...] Calcium 8.3(L) 8.5 - 10.3 mg/dL [facility] Blood 06/17/2024 1:25 AM MEDICINE TECH 06/17/2024 1:49 AM MEDICINE TECH us Nasir Lyons MD LAB BLOOD ORDERABLES Mel l Result Performing Organization Address City/[facility]/ZIP Co de Phone Number [facility] One [facility] [place] [address] * [place] Fluoroscopy < 1 Hour (06/16/2024 3:37 PM MEDICINE TECH) Narrative [facility] - 06/16/2024 3:37 PM MEDICINE TECH The images from this study are not interpreted by Radiology. ??Please refer to the physician's procedure / OR operative note. Mela Dejesus MD IMG FLUOROSCOPY PROCEDURE S Final Result Performing Organization Address [facility]/ZIP Co de Phone Number [facility] * (ABNORMAL) Manual Differential (06/16/2024 12:50 AM MEDICINE TECH) Differential Manual Cells Counted 124 [facility] Neutrophil abs 1.9 1.5 - 6.5 K/cumm [facility] Imm gran abs 0.0 0.0 - 0.1 K/cumm [facility] Lymphocyte abs 8.0(H) 0.8 - 3.3 K/cumm [facility] Monocyte abs 1.3(H) 0.2 - 0.8 K/cumm [facility] Neutrophil pct 16.9 % [facility] Comment: Interpretive Data Percent cell count reference ranges are not reported, since discordance with absolute values may lead to misinterpretation of CBC data. Current Interpretive Data was last revised on 2017. Lymphocyte pct 71.8 % [facility] Comment: Interpretive Data Percent cell count reference ranges are not reported, since discordance with absolute values may lead to misinterpretation of CBC data. Current Interpretive Data was last revised on 2017. Monocyte pct 11.3 % [facility] Comment: Interpretive Data Percent cell count reference ranges are not reported, since discordance with absolute values may lead to misinterpretation of CBC data. Current Interpretive Data was last revised on 2017. Blood 06/16/2024 12:5 0 AM MEDICINE TECH 06/16/2024 3:05 AM MEDICINE TECH Nasir Lyons MD LAB BLOOD ORDERABLES Mel l Result [facility] [place] [address] * (ABNORMAL) eGFR (06/16/2024 12:50 AM MEDICINE TECH) Pathologist [facility] [...] reviewed 2021. Blood 06/16/2024 12:5 0 AM MEDICINE TECH 06/16/2024 1:22 AM MEDICINE TECH us Nasir Lyons MD LAB BLOOD ORDERABLES Mel l Result Performing Organization Address City/[facility] Co de Phone Number [facility] [place] [address] * Magnesium (06/16/2024 12:50 AM MEDICINE TECH) Magnesium 1.9 1.4 - 2.5 mg/dL Blood 06/16/2024 12:5 0 AM MEDICINE TECH 06/16/2024 1:22 AM MEDICINE TECH us Nasir Lyons MD LAB BLOOD ORDERABLES Mel l Result Performing Organization Address [facility] de Phone Number [facility] [place] [address] * (ABNORMAL) Hepatic function panel (06/16/2024 12:50 AM MEDICINE TECH) [facility] Bilirubin, total 0.8 0.1 - 1.2 mg/dL Bilirubin, direct 0.2 0.1 - 0.3 mg/dL [facility] Comment:Reviewed Protein, pl 6.3(L) 6.5 - 8.5 g/dL [facility] Albumin 4.1 3.5 - 5.0 g/dL [facility] Alk phos 71 40 - 130 Units/L [facility] ALT 9 7 - 45 Units/L [facility] AST 26 10 - 45 Units/L [facility] Blood 06/16/2024 12:5 0 AM MEDICINE TECH 06/16/2024 1:22 AM MEDICINE TECH Nasir Lyons MD LAB BLOOD ORDERABLES Mel badillo Result [facility] One [facility] [place] [address] * (ABNORMAL) CBC with auto differential (06/16/2024 12:50 AM MEDICINE TECH) [facility] WBC 11.2(H) 3.8 - 9.9 K/cumm Hgb 11.0(L) 11.9 - 15.5 g/dL [facility] Hct 35.0(L) 35.6 - 45.5 % [facility] Plt 149(L) 150 - 400 K/cumm [facility] MPV 10.1 9.1 - 12.3 fL [facility] RBC 3.53(L) 3.90 - 5.20 M/cumm [facility] MCV 99.2(H) 81.3 - 96.4 fL [facility] MCH 31.2 27.1 - 33.3 pg [facility] MCHC 31.4(L) 32.3 - 35.7 g/dL [facility] RDW CV 15.0(H) 11.1 - 14.9 % [facility] RDW SD 54.4(H) 35.7 - 48.1 fL [facility] NRBC abs 0.00 0.00 - 0.01 K/cumm [facility] Blood 06/16/2024 12:5 0 AM MEDICINE TECH 06/16/2024 1:22 AM MEDICINE TECH Nasir Lyons MD LAB BLOOD ORDERABLES Mel l Result Performing Organization Address [facility] Co de Phone Number [facility] [place] [address] * (ABNORMAL) Basic metabolic panel (06/16/2024 12:50 AM MEDICINE TECH) [facility] Sodium 141 135 - 145 mmol/L Potassium, pl 4.0 3.3 - 4.9 mmol/L [facility] Chloride 108 97 - 110 mmol/L [facility] CO2 22 22 - 32 mmol/L [facility] Anion gap 11 2 - 15 mmol/L [facility] BUN 17 6 - 25 mg/dL [facility] Creatinine 1.97(H) 0.60 - 1.10 mg/dL [facility] Glucose 107 70 - 199 mg/dL [facility] [...] Calcium 8.7 8.5 - 10.3 mg/dL [facility] Blood 06/16/2024 12:5 0 AM MEDICINE TECH 06/16/2024 1:22 AM MEDICINE TECH Nasir Lyons MD LAB BLOOD ORDERABLES Mel l Result Performing Organization Address [facility] Co de Phone Number [facility] [place] [address] * (ABNORMAL) Manual Differential (06/15/2024 1:26 AM MEDICINE TECH) Differential Manual Cells Counted 122 [facility] Neutrophil abs 4.5 1.5 - 6.5 K/cumm [facility] Imm gran abs 0.0 0.0 - 0.1 K/cumm [facility] Lymphocyte abs 5.8(H) 0.8 - 3.3 K/cumm [facility] Monocyte abs 0.2 0.2 - 0.8 K/cumm [facility] Basophil abs 0.1 0.0 - 0.1 K/cumm [facility] Neutrophil pct 42.6 % [facility] Comment: Interpretive Data Percent cell count reference ranges are not reported, since discordance with absolute values may lead to misinterpretation of CBC data. Current Interpretive Data was last revised on 2017. Lymphocyte pct 49.3 % [facility] Comment: Interpretive Data Percent cell count reference ranges are not reported, since discordance with absolute values may lead to misinterpretation of CBC data. Current Interpretive Data was last revised on 2017. Monocyte pct 1.6 % [facility] Comment: Interpretive Data Percent cell count reference ranges are not reported, since discordance with absolute values may lead to misinterpretation of CBC data. Current Interpretive Data was last revised on 2017. Basophil pct 0.8 % [facility] Comment: Interpretive Data Percent cell count reference ranges are not reported, since discordance with absolute values may lead to misinterpretation of CBC data. Current Interpretive Data was last revised on 2017. Variant lymph pct 5.7 % [facility] RBC morphology Normal [facility] Platelet estimate Adequate [facility] Blood 06/15/2024 1:26 AM MEDICINE TECH 06/15/2024 1:39 AM MEDICINE TECH us Nasir Lyons MD LAB BLOOD ORDERABLES Mel badillo Result [facility] [place] [address] * (ABNORMAL) eGFR (06/15/2024 1:26 AM MEDICINE TECH) eGFR 27(L) >=60 mL/min/1. 73 m2 Comment: [...] last reviewed 2021. Blood 06/15/2024 1:26 AM MEDICINE TECH 06/15/2024 1:36 AM MEDICINE TECH Nasir Lyons MD LAB BLOOD ORDERABLES Mel l Result [facility] Department [place] [address] * Magnesium (06/15/2024 1:26 AM MEDICINE TECH) Magnesium 1.8 1.4 - 2.5 mg/dL Blood 06/15/2024 1:26 AM MEDICINE TECH 06/15/2024 1:36 AM MEDICINE TECH us Nasir Lyons MD LAB BLOOD ORDERABLES Mel l Result Performing Organization Address [facility] Co de Phone Number [facility] [place] [address] * (ABNORMAL) Hepatic function panel (06/15/2024 1:26 AM MEDICINE TECH) [facility] Bilirubin, total 0.6 0.1 - 1.2 mg/dL Bilirubin, direct <0.2 0.1 - 0.3 mg/dL [facility] Protein, pl 6.3(L) 6.5 - 8.5 g/dL [facility] Albumin 4.0 3.5 - 5.0 g/dL [facility] Alk phos 71 40 - 130 Units/L [facility] ALT 11 7 - 45 Units/L [facility] AST 25 10 - 45 Units/L [facility] Blood 06/15/2024 1:26 AM MEDICINE TECH 06/15/2024 1:36 AM MEDICINE TECH Nasir Lyons MD LAB BLOOD ORDERABLES Mel l Result Performing Organization Address [facility] Co de Phone Number [facility] [place] [address] * (ABNORMAL) CBC with auto differential (06/15/2024 1:26 AM MEDICINE TECH) [facility] WBC 10.5(H) 3.8 - 9.9 K/cumm Hgb 10.9(L) 11.9 - 15.5 g/dL [facility] Hct 34.1(L) 35.6 - 45.5 % [facility] Plt 149(L) 150 - 400 K/cumm [facility] MPV 10.1 9.1 - 12.3 fL [facility] RBC 3.47(L) 3.90 - 5.20 M/cumm [facility] MCV 98.3(H) 81.3 - 96.4 fL [facility] MCH 31.4 27.1 - 33.3 pg [facility] MCHC 32.0(L) 32.3 - 35.7 g/dL [facility] RDW CV 14.8 11.1 - 14.9 % [facility] RDW SD 53.0(H) 35.7 - 48.1 fL [facility] [facility] NRBC abs 0.00 0.00 - 0.01 K/cumm [facility] Blood 06/15/2024 1:26 AM MEDICINE TECH 06/15/2024 1:36 AM MEDICINE TECH us Nasir Lyons MD LAB BLOOD ORDERABLES Mel l Result [facility] [place] [address] * (ABNORMAL) Basic metabolic panel (06/15/2024 1:26 AM MEDICINE TECH) Sodium 139 135 - 145 mmol/L Potassium, pl 4.1 3.3 - 4.9 mmol/L [facility] Chloride 107 97 - 110 mmol/L [facility] CO2 22 22 - 32 mmol/L [facility] Anion gap 10 2 - 15 mmol/L [facility] BUN 18 6 - 25 mg/dL [facility] Creatinine 1.94(H) 0.60 - 1.10 mg/dL [facility] Glucose 127 70 - 199 mg/dL [facility] Calcium 8.9 8.5 - 10.3 mg/dL [facility] Blood 06/15/2024 1:26 AM MEDICINE TECH 06/15/2024 1:36 AM MEDICINE TECH us Nasir Lyons MD LAB BLOOD ORDERABLES Mel l Result [facility] [place] [address] * ECG 12 lead (06/14/2024 8:35 PM MEDICINE TECH) Ventricular Rate EKG/Min 68 BPM [facility] Atrial Rate 68 BPM [facility] MI-Interval (MSEC) 134 ms [facility] QRS-Interval (MSEC) 104 ms [facility] QT-Interval (MSEC) 430 ms [facility] QTc 457 ms [facility] P [place] -28 degrees [facility] R [place] -2 degrees [facility] T [place] 2 degrees [facility] Diagnosis Normal sinus rhythm Normal ECG When compared with ECG of 17-APR-2019 07:30, No significant change was found Confirmed by PIPER WILSON M.D ([id number]) on 06/15/2024 5:17:10 PM [facility] 06/14/2024 8:35 PM MEDICINE TECH 06/15/2024 5:17 PM MEDICINE TECH us Eren Cr MD ECG ORDERABLES Final Result Performing Organization Address [facility] de Phone Number [facility] * CT Abdomen Pelvis W Contrast (06/14/2024 2:26 AM MEDICINE TECH) Anatomical Region Laterality Modality Body N/A Computed Tomogra phy 06/14/2024 4:36 AM MEDICINE TECH Impressions 06/14/2024 9:47 AM MEDICINE TECH 1. Slight increase in size of multiple [...] Becky Golden M.D. Narrative 06/14/2024 9:47 AM MEDICINE TECH EXAMINATION: ??Computed tomography of the abdomen and [...] Pro B-type natriuretic peptide (06/14/2024 12:23 AM MEDICINE TECH) NT-proBNP 3,993(H) <=450 pg/mL Comment: Interpretive Comments: [...] Date: 2018. Blood 06/14/2024 12:2 3 AM MEDICINE TECH 06/14/2024 12:35 AM MEDICINE TECH us Armida Guajardo MD LAB BLOOD ORDERABLES Final Resul t [facility] [place] [address] * (ABNORMAL) eGFR (06/14/2024 12:23 AM MEDICINE TECH) eGFR 29(L) >=60 mL/min/1. 73 m2 Comment: [...] reviewed 2021. Blood 06/14/2024 12:2 3 AM MEDICINE TECH 06/14/2024 12:35 AM MEDICINE TECH us Kelton Keys MD LAB BLOOD ORDERABLES Final Res ult [facility] [place] [address] * (ABNORMAL) Differential, auto (06/14/2024 12:23 AM MEDICINE TECH) Neutrophil abs 3.8 1.5 - 6.5 K/cumm Imm gran abs 0.0 0.0 - 0.1 K/cumm [facility] Lymphocyte abs 2.4 0.8 - 3.3 K/cumm [facility] Monocyte abs 3.4(H) 0.2 - 0.8 K/cumm [facility] Eosinophil abs 0.0 0.0 - 0.5 K/cumm [facility] Basophil abs 0.0 0.0 - 0.1 K/cumm [facility] Neutrophil pct 39.4 % [facility] Comment: Confirmed by smear review [...] on 2017. Lymphocyte pct 24.8 % [facility] Comment: Interpretive Data Percent cell count reference ranges are not reported, since discordance with absolute values may lead to misinterpretation of CBC data. Current Interpretive Data was last revised on 2017. Monocyte pct 35.1 % [facility] Comment: Interpretive Data Percent cell count reference ranges are not reported, since discordance with absolute values may lead to misinterpretation of CBC data. Current Interpretive Data was last revised on 2017. Eosinophil pct 0.0 % [facility] Comment: Interpretive Data Percent cell count reference ranges are not reported, since discordance with absolute values may lead to misinterpretation of CBC data. Current Interpretive Data was last revised on 2017. Basophil pct 0.3 % [facility] Comment: Interpretive Data Percent cell count reference ranges are not reported, since discordance with absolute values may lead to misinterpretation of CBC data. Current Interpretive Data was last revised on 2017. Blood 06/14/2024 12:2 3 AM MEDICINE TECH 06/14/2024 12:36 AM MEDICINE TECH us Kelton Keys MD LAB BLOOD ORDERABLES Final Res ult [facility] [place] [address] * (ABNORMAL) Comprehensive metabolic panel (06/14/2024 12:23 AM MEDICINE TECH) Sodium 139 135 - 145 mmol/L Potassium, pl 4.6 3.3 - 4.9 mmol/L [facility] Chloride 110 97 - 110 mmol/L [facility] CO2 19(L) 22 - 32 mmol/L [facility] Anion gap 10 2 - 15 mmol/L [facility] BUN 16 6 - 25 mg/dL [facility] Creatinine 1.79(H) 0.60 - 1.10 mg/dL [facility] Glucose 141 70 - 199 mg/dL [facility] Calcium 8.9 8.5 - 10.3 mg/dL [facility] Bilirubin, total 0.4 0.1 - 1.2 mg/dL [facility] Protein, pl 6.4(L) 6.5 - 8.5 g/dL [facility] Albumin 3.9 3.5 - 5.0 g/dL [facility] Alk phos 79 40 - 130 Units/L [facility] ALT 8 7 - 45 Units/L [facility] AST 30 10 - 45 Units/L [facility] Blood 06/14/2024 12:2 3 AM MEDICINE TECH 06/14/2024 12:35 AM MEDICINE TECH Kelton Keys MD LAB BLOOD ORDERABLES Final Res ult Performing Organization Address [facility] Co de Phone Number [facility] [place] [address] * (ABNORMAL) CBC with auto differential (06/14/2024 12:23 AM MEDICINE TECH) WBC 9.8 3.8 - 9.9 K/cumm Hgb 11.6(L) 11.9 - 15.5 g/dL [facility] Hct 36.6 35.6 - 45.5 % [facility] Plt 145(L) 150 - 400 K/cumm [facility] MPV 10.9 9.1 - 12.3 fL [facility] RBC 3.68(L) 3.90 - 5.20 M/cumm [facility] MCV 99.5(H) 81.3 - 96.4 fL [facility] MCH 31.5 27.1 - 33.3 pg [facility] MCHC 31.7(L) 32.3 - 35.7 g/dL [facility] RDW CV 14.7 11.1 - 14.9 % [facility] RDW SD 54.8(H) 35.7 - 48.1 fL [facility] NRBC abs 0.00 0.00 - 0.01 K/cumm [facility] Blood 06/14/2024 12:2 3 AM MEDICINE TECH 06/14/2024 12:36 AM MEDICINE TECH Kelton Keys MD LAB BLOOD ORDERABLES Final Res ult [facility] [place] [address] documented in this encounter Visit Diagnoses Diagnosis [...] Sat06/15/24 at 0940 Given 06/19/2024 5:11 PM MEDICINE TECH 650 mg Given 06/17/2024 8:48 PM MEDICINE TECH 650 mg Given 06/15/2024 10:00 AM MEDICINE TECH 650 mg alteplase (CATHFLO) 1 mg/mL syringe (premix) 1 mg 1 mg, intra-catheter, Once, On Sat06/15/24 at 1315, For 1 dose, 60 to 120 minute dwell time. Refrigerate, Indications: Catheter clearanceIndications:Catheter clearance Given 06/15/2024 1:55 PM MEDICINE TECH 1 mg amLODIPine (NORVASC) tablet 5 mg 5 mg, oral, Daily, First dose on Sat06/14/24 at 1522 Given 06/20/2024 8:14 AM MEDICINE TECH 5 mg Given 06/18/2024 9:22 AM MEDICINE TECH 5 mg Given 06/17/2024 8:48 AM MEDICINE TECH 5 mg Carrier Fluids for Secondary Infusion [...] or chew capsule Given 06/20/2024 8:14 AM MEDICINE TECH 30 mg Given 06/18/2024 9:22 AM MEDICINE TECH 30 mg Given 06/17/2024 8:48 AM MEDICINE TECH 30 mg enoxaparin (LOVENOX) syringe 30 mg 30 mg, subcutaneous, Daily (for enoxaparin), First dose on 06/14/24 at 2100, Indications: Deep Vein Thrombosis Prevention, On hold since [facility] 06/18/2024 at 0745 until manually unheldIndications:Deep Vein Thrombosis Prevention Given 06/17/2024 8:42 PM MEDICINE TECH 30 mg Right Lower Abdomen Given 06/16/2024 8:03 PM MEDICINE TECH 30 mg Ri ght Lower Abdomen Given 06/15/2024 9:41 PM MEDICINE TECH 30 mg Ri ght Lower Abdomen famotidine (PEPCID) injection 20 mg 20 mg, intravenous, Administer over 2 Minutes, Once, On 06/16/24 at 1515, For 1 dose, Pre-Op Given 06/16/2024 2:42 PM MEDICINE TECH 20 mg fentaNYL (SUBLIMAZE) preservative free injection 25 mcg 25 mcg, intravenous, Once, On Sat06/14/24 at 0338, For 1 dose Given 06/14/2024 4:08 AM MEDICINE TECH 25 mcg fentaNYL (SUBLIMAZE) preservative free injection intravenous, As needed, Starting on Sat06/19/24 at 0813, Intra-Op Given 06/19/2024 8:32 AM MEDICINE TECH 50 mcg Given 06/19/2024 8:13 AM MEDICINE TECH 50 mcg fentaNYL (SUBLIMAZE) preservative free injection intravenous, As needed, Starting on Sat06/19/24 at 1013, Intra-Op Given 06/19/2024 10:13 AM MEDICINE TECH 25 mcg fentaNYL (SUBLIMAZE) preservative free injection intravenous, As needed, Starting on Sat06/19/24 at 1050, Intra-Op Given 06/19/2024 10:50 AM MEDICINE TECH 25 mcg fentaNYL (SUBLIMAZE) preservative free injection intravenous, As needed, Starting on Sat06/19/24 at 1059, Intra-Op Given 06/19/2024 10:59 AM MEDICINE TECH 50 mcg heparin 10 unit/mL flush 50 Units 50 Units (5 mL), intra-catheter, As needed, line care, Starting on Sat06/15/24 at 1043 Given 06/18/2024 1:30 AM MEDICINE TECH 50 Units Given 06/15/2024 10:47 AM MEDICINE TECH 50 Units heparin 100 unit/mL injection 500 Units 500 Units (5 mL), intra-catheter, Once, On 06/20/24 at 1145, For 1 dose, For port decannulation., Indications: Maintain Patency of Indwelling Vascular CatheterIndications:Maintain Patency of Indwelling Vascular Catheter Given 06/20/2024 11:42 AM MEDICINE TECH 500 Units heparin in 0.9% sodium chloride 1,000 units/500 mL (2 unit/mL) infusion (premix) Continuous PRN, Starting on Sat06/19/24 at 1028, Intra-Op New Bag 06/19/2024 10:28 AM MEDICINE TECH 60 Units/hr 30 mL/hr hydrALAZINE (APRESOLINE) injection 5 mg 5 mg, intravenous, Administer over 2 Minutes, Every 5 min PRN, high blood pressure, for systolic blood pressure greater than 160, Starting on Tu06/16/24 at 1633, For 4 doses, Phase I Given 06/16/2024 4:58 PM MEDICINE TECH 5 mg Given 06/16/2024 4:51 PM MEDICINE TECH 5 mg Given 06/16/2024 4:39 PM MEDICINE TECH 5 mg HYDROcodone-acetaminophen (NORCO) 5-325 mg per tablet 1 tablet 1 tablet, oral, Every 4 hours PRN, breakthrough pain, Starting on Sat06/14/24 at 1553, Indications: PainIndications:Pain hydrOXYzine (ATARAX) tablet 25 mg 25 mg, oral, Nightly PRN, anxiety, Starting on Sat06/14/24 at 2039 Given 06/14/2024 9:12 PM MEDICINE TECH 25 mg ioversoL (OPTIRAY 350) syringe 100 mL 100 mL, intravenous, Once in imaging, contrast, Starting on Sat06/14/24 at 0216, For 1 dose Contrast Given 06/14/2024 2:24 AM MEDICINE TECH 75 mL levothyroxine (SYNTHROID) tablet 100 mcg 100 mcg, oral, Daily (early AM), First dose on Sat06/14/24 at 1522, Administer on an empty stomach, preferably 30 minutes before breakfast. Take 4 hours apart from antacids, iron and calcium products. Separate from tube feeds, if applicable. Given 06/20/2024 5:56 AM MEDICINE TECH 100 mcg Given 06/19/2024 5:11 AM MEDICINE TECH 100 mcg Given 06/18/2024 6:08 AM MEDICINE TECH 100 mcg lidocaine (LIDODERM) 5 % patch [...] of Local Anesthesia Given 06/19/2024 8:13 AM MEDICINE TECH 8 mL lidocaine (PF) (XYLOCAINE) 10 mg/mL (1 %) preservative free injection As needed, Starting on Sat06/19/24 at 1016, Intra-Procedure (IR), Indications: Administration of Local AnesthesiaIndications:Administrati on of Local Anesthesia Given 06/19/2024 10:16 AM MEDICINE TECH 5 mL Right Groin magnesium sulfate 4 g/100 mL in water (premix) 4 g 4 g, intravenous, Administer over 90 Minutes, Every 4 hours PRN, magnesium replacement, Starting on Lydia 06/18/24 at 0442, For magnesium level of 1.2-1.5 mg/dL, Indications: hypomagnesemiaIndications:hypomagn esemia New Bag 06/20/2024 4:58 AM MEDICINE TECH 4 g magnesium sulfate 6 g in [...] at 0813, Intra-Op Given 06/19/2024 8:32 AM MEDICINE TECH 0.5 mg Given 06/19/2024 8:13 AM MEDICINE TECH 1 mg midazolam (VERSED) 1 mg/mL injection As needed, Starting on Sat06/19/24 at 1013, Intra-Op Given 06/19/2024 10:13 AM MEDICINE TECH 0.5 mg midazolam (VERSED) 1 mg/mL injection As needed, Starting on Sat06/19/24 at 1051, Intra-Op Given 06/19/2024 10:51 AM MEDICINE TECH 0.5 mg midazolam (VERSED) 1 mg/mL injection As needed, Starting on Sat06/19/24 at 1058, Intra-Op Given 06/19/2024 10:58 AM MEDICINE TECH 1 mg octreotide (SandoSTATIN) injection 150 mcg 150 mcg, subcutaneous, Once, On Sat06/19/24 at 1015, For 1 dose, Pre-Procedure (IR), Refrigerate Given 06/19/2024 9:48 AM MEDICINE TECH 150 mcg Right Lower Abdomen ondansetron (ZOFRAN) injection 4 mg 4 mg, intravenous, Administer over 2 Minutes, Once, On 06/13/24 at 2259, For 1 dose Given 06/13/2024 11:10 PM MEDICINE TECH 4 mg ondansetron (ZOFRAN) injection 4 mg 4 mg, intravenous, Administer over 2 Minutes, Once, On 06/14/24 at 0717, For 1 dose Given 06/14/2024 7:28 AM MEDICINE TECH 4 mg ondansetron (ZOFRAN) injection 4 mg 4 mg, intravenous, Administer over 2 Minutes, Every 4 hours PRN, nausea, vomiting, Starting on 06/14/24 at 1456 Given 06/16/2024 8:04 PM MEDICINE TECH 4 mg Given 06/14/2024 7:50 PM MEDICINE TECH 4 mg ondansetron (ZOFRAN) injection 4 mg 4 mg, intravenous, Administer over 2 Minutes, Every 6 hours PRN, nausea, vomiting, Starting on Sat06/17/24 at 1548 ondansetron (ZOFRAN) injection 4 mg 4 mg, intravenous, Administer over 2 Minutes, Every 6 hours PRN, nausea, vomiting, if not tolerating PO, Starting on Sat06/19/24 at 1148, Indications: nausea and vomitingIndications:nausea and vomiting Given 06/19/2024 12:01 PM MEDICINE TECH 4 mg ondansetron ODT (ZOFRAN-ODT) disintegrating tablet [...] Minutes, 2 times daily, First dose on Sat06/14/24 at 1458, For IV administration, reconstitute 40 mg vial with 10 mL sodium chloride 0.9% for injection for a final concentration of 4 mg/mL, Indications: Treatment of Non-Bleeding Gastric DisorderIndications:Treatment of Non-Bleeding Gastric Disorder Given 06/16/2024 8:03 PM MEDICINE TECH 40 mg 3 00 mL/hr Given 06/16/2024 9:22 AM MEDICINE TECH 40 mg 300 mL/hr Given 06/15/2024 9:40 PM MEDICINE TECH 40 mg 300 mL/hr pantoprazole DR (PROTONIX) extended release tablet 40 mg 40 mg, oral, Daily, First dose on Sat06/17/24 at 0900, Do not crush, chew, cut, dissolve, open or otherwise manipulate tablet/capsule., Indications: Treatment of Non-Bleeding Gastric DisorderIndications:Treatment of Non-Bleeding Gastric Disorder Given 06/20/2024 8:14 AM MEDICINE TECH 40 mg Given 06/18/2024 9:22 AM MEDICINE TECH 40 mg Given 06/17/2024 8:47 AM MEDICINE TECH 40 mg perflutren protein-a (OPTISON) 3 mL in sodium chloride 0.9% 8 mL syringe 1-8 mL, intravenous, Once in imaging, contrast, Starting on 06/17/24 at 1517, For 1 dose, Intra-Procedure (CV) Contrast Given 06/17/2024 3:50 PM MEDICINE TECH 3 mL potassium chloride ER (KLOR-CON) extended [...] chewed., Indications: hypokalemiaIndications:hypokalemia Given 06/20/2024 5:56 AM MEDICINE TECH 40 mEq Given 06/18/2024 6:08 AM MEDICINE TECH 40 mEq prochlorperazine (COMPAZINE) injection 5 mg 5 mg, intravenous, Administer over 2 Minutes, 2 times daily PRN, nausea, vomiting, Second line for nausea, Starting on 06/14/24 at 2040 Given 06/14/2024 9:13 PM MEDICINE TECH 5 mg prochlorperazine (COMPAZINE) injection 5 mg 5 mg, intravenous, Administer over 2 Minutes, Every 6 hours PRN, nausea, vomiting, Second line for nausea, Starting on 06/17/24 at 1548 Given 06/19/2024 12:20 PM MEDICINE TECH 5 mg sodium chloride 0.9% bolus 1,000 mL 1,000 mL, intravenous, Once, On 06/13/24 at 2259, For 1 dose New Bag 06/13/2024 11:10 PM MEDICINE TECH 1,000 mL sodium chloride 0.9% flush 0.5-20 mL 0.5-20 mL, intra-catheter, Every 8 hours scheduled, First dose on Sat06/14/24 at 1523, Flush volume based on line type and size. , Indications: FlushingIndications:Flushing Given 06/20/2024 11:42 AM MEDICINE TECH 10 mL Given 06/17/2024 8:43 PM MEDICINE TECH 10 mL Given 06/16/2024 8:12 PM MEDICINE TECH 10 mL sodium chloride 0.9% flush 0.5-20 [...] to decannulate port. Given 06/20/2024 11:42 AM MEDICINE TECH 10 mL sodium chloride 0.9% flush 10-20 [...] size, and protocol. Given 06/20/2024 8:14 AM MEDICINE TECH 10 mL sodium chloride 0.9% infusion 100 mL/hr, intravenous, Continuous, Starting on Sat06/14/24 at 1458, For 10 hours Rate/Dose Verify 06/14/2024 6:05 PM MEDICINE TECH 100 mL/hr 100 mL/hr Rate/Dose Verify 06/14/2024 3:59 PM MEDICINE TECH 100 mL/hr 100 mL/ hr New Bag 06/14/2024 3:58 PM MEDICINE TECH 100 mL/hr 100 mL/hr sodium chloride 0.9% infusion 100 mL/hr, intravenous, Continuous, Starting on Sat06/15/24 at 1400, For 24 hours New Bag 06/16/2024 11:41 AM MEDICINE TECH 100 mL/hr 100 mL/hr Rate/Dose Verify 06/16/2024 6:07 AM MEDICINE TECH 100 mL/hr 100 mL/ hr New Bag 06/15/2024 3:25 PM MEDICINE TECH 100 mL/hr 100 mL/hr sodium chloride 0.9% infusion 50 mL/hr, intravenous, Continuous, Starting on Sat06/16/24 at 1515, Pre-Op New Bag 06/16/2024 2:42 PM MEDICINE TECH 50 mL/hr 50 mL/ hr sodium chloride 0.9% infusion 75 mL/hr, intravenous, Continuous, Starting on Sat06/16/24 at 1630, Phase I New Bag 06/16/2024 3:58 PM MEDICINE TECH 125 mL/hr 125 m L/hr sodium chloride 0.9% infusion 75 mL/hr, intravenous, Continuous, Starting on Sat06/19/24 at 0945, Pre-Op/Floor (IR) New Bag 06/19/2024 1:09 PM MEDICINE TECH 75 mL/hr 75 mL/hr documented in this encounter Discontinued Medications Medication Sig Discontinue Reason Start Date End Da te ipratropium (ATROVENT) 42 mcg (0.06 %) nasal spray [place] 1 spray twice a day by nasal route for 13 days. 04/28/2024 06/14/2024 montelukast (SINGULAIR) 10 mg tablet Take 1 tablet (10 mg total) by mouth as needed (allergies) 06/14/2024 ascorbic acid, vitamin C, 500 mg capsuleIndications:del cid pplement Take 1 tablet by mouth exhibitions curator before breakfast Stop Taking at Discharge 07/04/2016 06/20/2024 coenzyme [id number] 100-5 mg-unit capsuleIndications:del cid pplement Take 1 tablet by mouth exhibitions curator before breakfast Stop Taking at Discharge 06/20/2024 [...] Discharge 08/21/2021 06/20/2024 0.9 % sodium chloride ([facility] sodium chloride 0.9%) injectionIndications: line care Infuse [...] Recently Administered Medications Times are shown in MEDICINE TECH. Scheduled Medication Order 06/18/2024 06/19/2024 06/20/2024 amLODIPine (NORVASC) tablet 5 mg 5 mg, oral, Daily, First dose on Sat06/14/24 at 1522 0922 (Given - Provider: Sis Pedraza RN) 0900 (Not Given - Provider: Sis Pedraza RN - Reason: Patient not available - Comment: Patient having TACE/Liver biopsy.) 0814 (Given - Provider: Marcia Haynes RN) DOXOrubicin (ADRIAMYCIN) 50 mg in ioversoL (OPTIRAY 320) 5 mL intra-arterial 50 mg, intra-arterial, Once, On Sat24 at 0945, For 1 dose, Pre-Procedure (IR), [...] Nohelia Moore RN) 0511 (Given - Provider: Ntai Rousseau RN) 0556 (Given - Provider: Soniya [...] RN) 0618 (Canceled Entry - Provider: Nati Ruosseau RN)1601 (Not Given - Provider: Sis Pedraza [...] pain, PAIN, Starting on Sat06/15/24 at 0940 1711 (Given - Provider: Sis [...] 06/18/2024 oxyBUTYnin (DITROPAN) tablet 5 mg 1 lidocaine (LIDODERM) 5 % patch 2 patch [...] 1 06/20/2024 SKIN PREP 1 06/19/2024 VOID HEAD ATHLETIC TRAINER TO OR 2 06/19/2024 Consult Count Last [...] 06/16/2024 documented in this encounter Care Teams Planner Internship Relationship Specialty Start Date End Date Julio César Briseno MD PCP - General 10/01/16 Eren Cr MD Referring Physician Medical Oncology 11/25/18 Yohana Bowen MD Radiation Oncologist Radiation Oncology 11/25/18 Alejo Mi MD [id number] [place] [address] Referring Physician Nephrology 03/07/23 documented as of this encounter
--- OUTSIDE RECORDS SUMMARY | 2024-06-26 01:51 | XMS_ITS | Encounter Summary ---
Author Organization Formerly [facility] Address [address] [place] [address] Care Team Providers Care Correctional Supervisor Name Role Phone Julio César Briseno MD Primary Care Provider [phone] Eren Cr MD Unavailable Yohana Bowen MD Unavailable Alejo Mi MD Unavailable [phone] Reason for Visit * Auth/Cert (Routine) Specialty Diagnoses / Procedures Referred By Contac t Referred To Contact Diagnoses History of malignant neuroendocrine tumor ANNE-MARIE (acute kidney injury) (HCC) 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 Procedures NA Referral ID Status Reason Start Date Expiration Date Visits Re quested Visits Authorized [id number] 1 1 Encounter Details Date Type Department Care Team (Late st Contact Info) Description 06/16/2024 3:00 PM WHARF TENDER HELPER Anesthesia Event [facility] [place] [address] [place] [id number] Elissa Rosales MD [address] [place] [address] Kobi Grullon MD [address] [place] [address] Anesthesia Record Procedure Summary Procedure Name Responsible [...] on file Legal Sex Female 2:41 PM WHARF TENDER HELPER Gender Identity Not on file Sexual Orientation Straight 02/19/2021 9: 29 AM CDT Occupation Industry Job Start Date Job End Date retired Not on file Not on file Not on file documented as of this encounter OR Notes * Anesthesia Postprocedure Evaluation - Mya Mcfadden DO - 06/16/2024 5:51 PM CST Patient: La Chung Procedure Summary Date: 06/16/24 Room / Location: [facility] OR POD 1 ROOM 325 / [facility] OR POD 1 Anesthesia Start: 1500 Anesthesia [...] Nausea/Vomiting status: none No notable events documented. F TENDER HELPER * Anesthesia Procedure Notes - Danielle Kirk CRNA - 06/16/2024 3:30 PM WHARF TENDER HELPER Associated Order(s): Airway Airway Patient location: OR Urgency: elective Indications for airway management: anesthesia Difficult airway: no Staff: Supervising provider: Elissa Rosales MD Placed by: LAND DEVELOPMENT PROJECT MANAGER: Danielle Kirk CRNA Emergent airway documentation: Risks and benefits discussed: yes Consent obtained: yes Consent given by: patient Airway prep: Preoxygenated: yes Patient position: sniffing Mask difficulty assessment: 1 - vent by mask Spontaneous ventilation during airway: absent Sedation level during airway: GA Final airway details: Final airway type: supraglottic airway Final supraglottic airway: IGel SGA size: 4 Number of attempts: 1 F TENDER HELPER * Anesthesia Preprocedure Evaluation - Elissa Rosales [...] End Date Provider 0.9 % sodium chloride ([facility] sodium chloride 0.9%) injection -- -- -- [...] -- -- -- Levon Kee MD coenzyme [id number] E 100-5 mg-unit capsule -- -- -- [...] 1 tablet (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) by mouth vehicle damage appraiser before breakfast lidocaine-prilocaine (lidocaine-prilocaine) cream -- 09/19/21 [...] is Floor. Informed Consent: Discussed plan with LAND DEVELOPMENT PROJECT MANAGER. Anesthesia plan and risks discussed with patient, spouse and daughter. Plan and Consent Comments: Tiva in face of [facility] Octreotide in room in face of carcinoid Consent and Attending signature: I and/or my designee have discussed the anesthesia plan, benefits, possible alternatives, parental presence at time of induction (if indicated), and clinically relevant risks that may include dental injury, unintentional awareness, and/or other complications. The patient and/or parent/legal guardian understand, and agree to proceed. All questions answered. F TENDER HELPER documented in this encounter Plan of Treatment Not on file documented as of this encounter Procedures Procedure Name Priority Date/Time Associated Diagnosis Comments [place] AN PROCEDURE PLACEHOLDER Routine 06/16/2024 3:30 PM WHARF TENDER HELPER [place] AN ELECTIVE SUPRAGLOTTIC AIRWAY Routine 06/16/2024 3:30 PM WHARF TENDER HELPER documented in this encounter Results * [place] AN ELECTIVE SUPRAGLOTTIC AIRWAY, [place] AN PROCEDURE PLACEHOLDER (06/16/2024 3:30 PM WHARF TENDER HELPER) Narrative Danielle Kirk CRNA - 06/16/2024 3:30 PM WHARF TENDER HELPER Danielle Kirk CRNA ? 06/16/2024 ??3:31 PM Airway Patient location: OR Urgency: elective Indications for airway management: anesthesia Difficult airway: no Staff: Supervising provider: Elissa Rosales MD Placed by: LAND DEVELOPMENT PROJECT MANAGER: Danielle Kirk CRNA Emergent airway documentation: Risks [...] Prophylaxis, SurgicalIndications:Prophylaxis, Surgical Given 06/16/2024 3:19 PM WHARF TENDER HELPER 1,000 mg fentaNYL (SUBLIMAZE) preservative free injection intravenous, As needed, Starting on Sat06/16/24 at 1507, Anesthesia Intra-op Given 06/16/2024 3:18 PM WHARF TENDER HELPER 25 mcg Given 06/16/2024 3:07 PM WHARF TENDER HELPER 25 mcg ondansetron (ZOFRAN) injection intravenous, Administer over 2 Minutes, As needed, Starting on Sat06/16/24 at 1537, Anesthesia Intra-op Given 06/16/2024 3:37 PM WHARF TENDER HELPER 4 mg phenylephrine (RAYMOND-SYNEPHRINE) 1 mg/10 mL (100 mcg/mL) in sodium chloride 0.9% (premix) intravenous, As needed, Starting on Sat06/16/24 at 1521, Anesthesia Intra-op Given 06/16/2024 3:21 PM WHARF TENDER HELPER 100 mcg propofoL (DIPRIVAN) 10 mg/mL IV intravenous, Continuous PRN, Starting on Sat06/16/24 at 1518, Anesthesia Intra-op Rate/Dose Change 06/16/2024 3:31 PM WHARF TENDER HELPER 100 mcg/kg/min 45 mL/hr Given 06/16/2024 3:29 PM WHARF TENDER HELPER 20 mg Rate/Dose Change 06/16/2024 3:28 PM WHARF TENDER HELPER 85 mcg/kg/min 38.2 5 mL/hr documented in this encounter Care Teams Correctional Supervisor Relationship Specialty Start Date End Date Julio César Briseno MD PCP - General 10/01/16 Eren Cr MD Referring Physician Medical Oncology 11/25/18 Yohana Bowen MD Radiation Oncologist Radiation Oncology 11/25/18 Alejo Mi MD [address] [address] Referring Physician Nephrology 03/07/23 documented as of this encounter
--- OUTSIDE RECORDS SUMMARY | 2024-06-26 01:52 | XMS_ITS | Encounter Summary ---
Author Organization [facility] Address [address] [place] [address] Phone Care Team Providers Care Acid Filler Name Role Phone Julio César Briseno MD Primary Care Provider [phone] Eren Cr MD Unavailable [phone] Yohana Bowen MD Unavailable Alejo Mi MD Unavailable [phone] Encounter Details Date Type Department Care Team (Late st Contact Info) Description 05/13/2024 Orders Only [facility] Oncology [address] [place] [address] Eren Cr MD [address] [place] [address] Social History Tobacco Use Types Packs/Day Years [...] on file Legal Sex Female 2:41 PM A/C TECH Gender Identity Not on file Sexual Orientation Straight 02/19/2021 9: 29 AM CDT Occupation Industry Job Start Date Job End Date retired Not on file Not on file Not on file documented as of this encounter Plan of Treatment Not on file documented as of this encounter Visit Diagnoses Not on filedocumented in this encounter Care Teams Acid Filler Relationship Specialty Start Date End Date Julio César Briseno MD PCP - General 10/01/16 Eren Cr MD Referring Physician Medical Oncology 11/25/18 Yohana Bowen MD Radiation Oncologist Radiation Oncology 11/25/18 Alejo Mi MD [address] [place] [address] Referring Physician Nephrology 03/07/23 documented as of this encounter
--- OUTSIDE RECORDS SUMMARY | 2024-06-26 01:52 | XMS_ITS | Encounter Summary ---
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 Advanced Medicine 7th [place] [address] Phone: tel: Referral ID Status Reason Start Date Expiration Date Visits Re quested Visits Authorized [id number] Closed 06/21/2021 06/26/2024 1 99 Encounter Details Date Type Department Care Team (Latest Contact Info) Description 03/17/2024 1:00 PM CDT Research Med Pick-Up/CTRU Fruit Farmer [facility] [address] [address] Neuro-endocrine carcinoma (HCC) (Primary Dx) Social History [...] on file Legal Sex Female 2:41 PM STACK CLERK Gender Identity Not on file Sexual [...] Ordered Date First Ordered Date INV-[id number] cabozantinib (/[id number]) tablet 20 mg 1 03/17/2024 Appointment Requests Count Last Ordered Date Fi rst Ordered Date ONCBCN TAKE HOME STUDY DRUG APPT 1 03/17/20 24 documented in this encounter Care Teams Vulnerability Researcher Relationship Specialty Start Date End Date Julio César Briseno MD PCP - General 10/01/16 Eren Cr MD Referring Physician Medical Oncology 11/25/18 Yohana Bowen MD Radiation Oncologist Radiation Oncology 11/25/18 Alejo Mi MD [address] [place] [address] Referring Physician Nephrology 03/07/23 documented as of this encounter
--- OUTSIDE RECORDS SUMMARY | 2024-06-26 01:52 | XMS_ITS | Encounter Summary ---
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
--- OUTSIDE RECORDS SUMMARY | 2024-06-26 01:52 | XMS_ITS | Encounter Summary ---
Author Organization [facility] Address [address] [place] [address] Phone Care Team Providers Care Boner Meat Name Role Phone Julio César Briseno MD Primary Care Provider [phone] Eren Cr MD Unavailable [phone] Yohana Bowen MD Unavailable Alejo Mi MD Unavailable [phone] Reason for Visit * Reason Comments Annual Exam Encounter Details Date Type Department Care Team (Late st Contact Info) Description 05/29/2024 10:45 AM FIELD REP Office Visit [facility] [address] [facility] [address] [place] [address] Po Newberry MD PhD [address] [place] [address] [id number] Actinic keratosis (Primary Dx); Purpura (HCC); Family [...] file Legal Sex Female 2:41 PM FIELD REP Gender Identity Not on file Sexual Orientation Straight 02/19/2021 9: 29 AM CDT Occupation Industry Job Start Date Job End Date retired Not on file Not on file Not on file documented as of this encounter Progress Notes * Po Newberry MD PhD - 05/29/2024 10:45 AM CST La Chung [id number] 05/29/24 CHIEF COMPLAINT: full body skin exam [...] with exception of these notable exam findings: [place] scaly papules on face Reticulated brown/red macules [...] actions. Electronically Signed: Po Newberry MD, PhD D REP documented in this encounter Plan of Treatment Not on file documented as of this encounter Visit Diagnoses Diagnosis Actinic keratosis- Primary Purpura (HCC) Other nonthrombocytopenic purpuras Family history of melanoma Family history of other specified malignant neoplasm Seborrheic keratosis Multiple benign nevi Milia Sebaceous cyst documented in this encounter Care Teams Boner Meat Relationship Specialty Start Date End Date Julio César Briseno MD PCP - General 10/01/16 Eren Cr MD Referring Physician Medical Oncology 11/25/18 Yohana Bowen MD Radiation Oncologist Radiation Oncology 11/25/18 Alejo Mi MD [address] [place] [address] Referring Physician Nephrology 03/07/23 documented as of this encounter
--- OUTSIDE RECORDS SUMMARY | 2024-06-26 01:52 | XMS_ITS | Encounter Summary ---
Author Organization [facility] Address [address] [place] [address] Phone Care Team Providers Care Fitter/Welder Name Role Phone Julio César Briseno MD Primary Care Provider [phone] Eren Cr MD Unavailable [phone] Yohana Bowen MD Unavailable Alejo Mi MD Unavailable [phone] Encounter Details Date Type Department Care Team (Late st Contact Info) Description 05/08/2024 Orders Only [facility] Oncology [address] [place] [address] Eren Cr MD [address] [place] [address] Research study patient (Primary Dx) Social History [...] on file Legal Sex Female 2:41 PM FABRICATION 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
--- OUTSIDE RECORDS SUMMARY | 2024-06-26 01:52 | XMS_ITS | Encounter Summary ---
Author Organization [facility] Address [address] [place] [address] Phone Care Team Providers Care Sales Support Advisor Name Role Phone Julio César Briseno MD Primary Care Provider Eren Cr MD Unavailable [phone] Yohana Bowen MD Unavailable Alejo Mi MD Unavailable [phone] Encounter Details Date Type Department Care Team (Late st Contact Info) Description 05/13/2024 Orders Only [facility] Oncology [address] [place] [address] Eren Cr MD [address] [place] [address] Social History Tobacco Use Types Packs/Day Years [...] file 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 Gender Identity Not on file Sexual Orientation Straight 02/19/2021 9: 29 AM CDT Occupation Industry Job Start Date Job End Date retired Not on file Not on file Not on file documented as of this encounter Plan of Treatment Not on file documented as of this encounter Visit Diagnoses Not on filedocumented in this encounter Care Teams Sales Support Advisor Relationship Specialty Start Date End Date Julio César Briseno MD PCP - General 10/01/16 Eren Cr MD Referring Physician Medical Oncology 11/25/18 Yohana Bowen MD Radiation Oncologist Radiation Oncology 11/25/18 Alejo Mi MD [address] [place] [address] Referring Physician Nephrology 03/07/23 documented as of this encounter
--- OUTSIDE RECORDS SUMMARY | 2024-06-26 01:52 | XMS_ITS | Encounter Summary ---
Author Organization [facility] Address [address] [place] [address] Phone Care Team Providers Care Buoy Tender Name Role Phone Julio César Briseno MD Primary Care Provider [phone] Eren Cr MD Unavailable [phone] Yohana Bowen MD Unavailable NorwoodlAejo Waggoner MD Unavailable [phone] Reason for Referral * MRI/CAT/PET Scan (Routine) - Closed Specialty Diagnoses / Procedures Referred By Contac t Referred To Contact Radiology Diagnoses Neuroendocrine carcinoma (HCC) Procedures CT chest abdomen pelvis with contrast Eren Cr MD [address] [place] [address] Phone: tel: fax: 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
--- OUTSIDE RECORDS SUMMARY | 2024-06-26 01:52 | XMS_ITS | Encounter Summary ---
Author Organization [facility] Healthcare Address [address] [place] [address] Care Team Providers Care Visual Communications Instructor Name Role Phone Julio César Briseno MD Primary Care Provider [phone] Eren Cr MD Unavailable [phone] Yohana Bowen MD Unavailable Alejo Mi MD Unavailable [phone] Encounter Details Date Type Department Care Team (Late st Contact Info) Description 05/13/2024 Orders Only [facility] [address] [address] Yoana Murray [facility] Social History Tobacco Use Types Packs/Day Years [...] on file 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 Gender Identity Not on file Sexual Orientation Straight 02/19/2021 9: 29 AM CDT Occupation Industry Job Start Date Job End Date retired Not on file Not on file Not on file documented as of this encounter Plan of Treatment Not on file documented as of this encounter Visit Diagnoses Not on filedocumented in this encounter Care Teams Visual Communications Instructor Relationship Specialty Start Date End Date Julio César Briseno MD PCP - General 10/01/16 Eren Cr MD Referring Physician Medical Oncology 11/25/18 Yohana Bowen MD Radiation Oncologist Radiation Oncology 11/25/18 Alejo Mi MD [address] [address] Referring Physician Nephrology 03/07/23 documented as of this encounter
--- OUTSIDE RECORDS SUMMARY | 2024-06-26 01:52 | XMS_ITS | Encounter Summary ---
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 Dr Mearz or Dr. Ying please. 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) Eern Wu MD [address] [place] [address] [address] [place] [address] Phone: tel: fax: Janice Bowen MD [address] [place] [address] # LL LL [address] [place] [address] Phone: tel: fax: Referral ID Status Reason Start Date Expiration Date V isits Requested Visits Authorized [id number] Closed Specialty Services Required 05/12/2024 06/11/2025 1 1 Question Answer Please select the performing region: [facility] [152] Please select the performing department: [facility] RAD [facility]C [facility] [[id number]] To provider: JANICE BOWEN [[id number]] # of visits: [address] 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 Previously received PRRT in [id number]. Thank you GER FIXER Reason for Visit * Episode Based Medications (Routine) - Closed Specialty Diagnoses / Procedures Referred By Contac t Referred To Contact Diagnoses Neuro-endocrine carcinoma (HCC) Procedures study [id number] [place] [address] [place] [address] [address] [place] [address] Phone: tel: fax: [facility] [address] [facility] 7th [place] [address] Phone: tel: Referral ID Status Reason Start Date Expiration Date Visits Re quested Visits Authorized [id number] Closed 06/21/2021 06/26/2024 1 99 Encounter Details Date Type Department Care Team (Late st Contact Info) Description 05/12/2024 10:45 AM CHANGER FIXER Office Visit [facility] Oncology [address] [place] [address] Eren Wu MD [address] [facility] [address] [place] [address] Neuro-endocrine carcinoma (HCC) (Primary Dx); Malignant neoplasm [...] on file 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 Gender Identity Not on file Sexual Orientation Straight 02/19/2021 9: 29 AM CDT Occupation Industry Job Start Date Job End Date retired Not on file Not on file Not on file documented as of this encounter Last Filed Vital Signs Vital Sign Reading Time Taken Comments Blood Pressure 143/78 05/12/2024 11:08 AM CHANGER FIXER Pulse 71 05/12/2024 11:08 AM CHANGER FIXER Temperature 36.6 ??C (97.9 ??F) 05/12/2024 1 1:08 AM CHANGER FIXER Respiratory Rate 18 05/12/2024 11:0 8 AM CHANGER FIXER Oxygen Saturation 98% 05/12/2024 11: 08 AM CHANGER FIXER Inhaled Oxygen Concentration - - Weight 75.3 kg (165 lb 14.4 oz) 024 11:08 AM CHANGER FIXER Height - - Body Mass Index 29.39 01/24/2024 2:43 PM CDT documented in this encounter Progress Notes * Erne Wu MD - 05/12/2024 10:45 AM CST [...] she also underwent right colectomy in [facility] OR by Dr. Greyson Reeves. Biopsy [...] Instructions 0.9 % sodium chloride ([facility] sodium chloride 0.9%) injection 10 mL, [...] Application topically daily as needed (rash) coenzyme [id number] E 100-5 mg-unit capsule 1 tablet, Daily [...] heparin 100 unit/mL solution 5 mL, Weekly [facility] cabozantinib/placebo (/[id number]) 20 mg, Nightly ipratropium (ATROVENT) 42 mcg (0.06 %) nasal spray Haskell 1 spray twice a day by nasal [...] continue current octreotide LAR monthly injections - MUSIC THERAPY SPECIALIST saw pt for end of study visit. [...] Eren Wu MD Division of Medical Oncology [facility] [employer] [facility] My total encounter time [...] ICARE data: No change in treatment plan GER FIXER documented in this encounter Miscellaneous Notes * Addendum Note - Eren Wu MD - 05/12/2024 10:45 AM CSTAddended by: EREN WU on: 05/13/2024 12:06 PM Modules accepted: Orders GER FIXER documented in this encounter Plan of Treatment [...] (ATROVENT) 42 mcg (0.06 %) nasal spray Haskell 1 spray twice a day by nasal route for 13 days. 04/28/2024 06/14/2024 added in this encounter Orders Appointment Requests Count Last Ordered Date Fi rst Ordered Date ONCBCN CLINIC APPOINTMENT REQUEST 1 024 documented in this encounter Care Teams Laboratory Aide Relationship Specialty Start Date End Date Julio César Briseno MD PCP - General 10/01/16 Eren Wu MD Referring Physician Medical Oncology 11/25/18 Janice Bowen MD Radiation Oncologist Radiation Oncology 11/25/18 Alejo Mi MD [address] [address] Referring Physician Nephrology 03/07/23 documented as of this encounter
--- OUTSIDE RECORDS SUMMARY | 2024-06-26 01:52 | XMS_ITS | Encounter Summary ---
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 Consult scheduled for 05/21/[address] [facility]. Patient verbalized understanding of instructions and will call [place] if needed. She does have [facility]'s direct office number. Letter sent to patient via [employer]. ICE AGENT documented in this encounter Plan of Treatment Not on file documented as of this encounter Visit Diagnoses Not on filedocumented in this encounter Care Teams Library Services Assistant Relationship Specialty Start Date End Date Julio César Briseno MD PCP - General 10/01/16 Eren Cr MD Referring Physician Medical Oncology 11/25/18 Yohana Bowen MD Radiation Oncologist Radiation Oncology 11/25/18 Alejo Mi MD [address] [address] Referring Physician Nephrology 03/07/23 documented as of this encounter
--- OUTSIDE RECORDS SUMMARY | 2024-06-26 01:52 | XMS_ITS | Encounter Summary ---
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 Meraz for case review- awaiting response. ING ROOM SUPERVISOR documented in this encounter Plan of Treatment Not on file documented as of this encounter Visit Diagnoses Not on filedocumented in this encounter Care Teams Security Incident Handler Relationship Specialty Start Date End Date Julio César Briseno MD PCP - General 10/01/16 Eren Cr MD Referring Physician Medical Oncology 11/25/18 Yohana Bowen MD Radiation Oncologist Radiation Oncology 11/25/18 Alejo Mi MD [address] [place] [address] Referring Physician Nephrology 03/07/23 documented as of this encounter
--- OUTSIDE RECORDS SUMMARY | 2024-06-26 01:52 | XMS_ITS | Encounter Summary ---
Author Organization [facility] Address [address] [place] [address] Phone Care Team Providers Care Physician Liaison Name Role Phone Julio César Briseno MD Primary Care Provider Eren Cr MD Unavailable [phone] Yohana Bowen MD Unavailable Alejo Mi MD Unavailable [phone] Encounter Details Date Type Department Care Team (Late st Contact Info) Description 06/09/2024 11:00 AM CHIEF ENGINEER WATERWORKS Office Visit [facility] Oncology [address] [facility] [address] [place] [address] Claude Browning MD [facility] [address] [place] [address] Neuroendocrine carcinoma (HCC) (Primary Dx); [...] Legal 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 Female 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 Gender Identity Not on file Sexual Orientation Straight 02/19/2021 9: 29 AM CDT Occupation Industry Job Start Date Job End Date retired Not on file Not on file Not on file documented as of this encounter Last Filed Vital Signs Vital Sign Reading Time Taken Comments Blood Pressure 149/99 06/09/2024 10:47 AM CHIEF ENGINEER WATERWORKS Pulse 78 06/09/2024 10:47 AM CHIEF ENGINEER WATERWORKS Temperature 36.3 ??C (97.4 ??F) 06/09/2024 10:[address] Respiratory Rate 18 06/09/2024 10:47 AM CHIEF ENGINEER WATERWORKS Oxygen Saturation 100% 06/09/2024 10:47 AM CHIEF ENGINEER WATERWORKS Inhaled Oxygen Concentration - - Weight 78.5 kg (173 lb) 06/09/2024 10:47 AM CHIEF ENGINEER WATERWORKS Height 160 cm (5' 2.99 ) 06/09/2024 10:47 AM CHIEF ENGINEER WATERWORKS Body Mass Index 30.65 06/09/2024 10:47 AM CHIEF ENGINEER WATERWORKS documented in this encounter Plan of Treatment [...] 06/09/2024 documented in this encounter Care Teams Physician Liaison Relationship Specialty Start Date End Date Julio César Briseno MD PCP - General 10/01/16 Eren Cr MD Referring Physician Medical Oncology 11/25/18 Yohana Bowen MD Radiation Oncologist Radiation Oncology 11/25/18 Alejo Mi MD [address] [place] [address] Referring Physician Nephrology 03/07/23 documented as of this encounter
--- OUTSIDE RECORDS SUMMARY | 2024-06-26 01:52 | XMS_ITS | Encounter Summary ---
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) Procedures [place] OCTREOTIDE INJECTION, DEPOT Octreotide 28 Day Cycles - Carcinoid Eren Cr MD [address] [place] [address] Phone: tel: fax: [address] [address] Phone: tel: fax: Referral ID Status Reason Start Date Expiration Date V isits Requested Visits Authorized [id number] Authorized 11/28/2017 02/05/2025 1 150 Encounter Details Date Type Department Care Team (Late st Contact Info) Description 04/14/2024 11:45 AM CDT Infusion [facility] [address] [place] [phone] 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 [...] First Orde red Date ONCBCN NURSING COMMUNICATION [id number] 1 04/14 Appointment Requests Count Last Ordered Date Fi rst Ordered Date ONCBCN INJECTION APPOINTMENT REQUEST 1 02/2024 documented in this encounter Care Teams Workforce Analyst Relationship Specialty Start Date End Date Julio César Briseno MD PCP - General 10/01/16 Eren Cr MD Referring Physician Medical Oncology 11/25/18 Yohana Bowen MD Radiation Oncologist Radiation Oncology 11/25/18 Alejo Mi MD [address] [place] [address] Referring Physician Nephrology 03/07/23 documented as of this encounter
--- OUTSIDE RECORDS SUMMARY | 2024-06-26 01:52 | XMS_ITS | Encounter Summary ---
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 Eren Cr MD [address] [place] [address] Phone: tel: fax: [facility] [address] [facility] 7th [place] [address] Phone: tel: Referral ID Status Reason Start Date Expiration Date Visits Re quested Visits Authorized [id number] Closed 06/21/2021 06/26/2024 1 99 Encounter Details Date Type Department Care Team (Latest Contact Info) Description 05/12/2024 10:00 AM COMPUTER 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 Clinical Support [facility] [address] [place] [address] Neuro-endocrine carcinoma (HCC); Neuroendocrine carcinoma (HCC); Malignant [...] file Legal Sex Female 2:41 PM COMPUTER 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 Gender Identity Not on file Sexual Orientation Straight 02/19/2021 9: 29 AM CDT Occupation Industry Job Start Date Job End Date retired Not on file Not on file Not on file documented as of this encounter Plan of Treatment Not on file documented as of this encounter Procedures Procedure Name Priority Date/Time Associated Diagnosis Comments EGFR STAT 05/12/2024 10:26 AM COMPUTER 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 Neuro-endocrine carcinoma (HCC) DIFFERENTIAL AUTO STAT 05/12/2024 10: 26 AM COMPUTER 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 Neuro-endocrine carcinoma (HCC) CHROMOGRANIN A Routine 05/12/2024 10:26 AM COMPUTER 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 Neuroendocrine carcinoma (HCC) 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) CBC WITH AUTO DIFFERENTIAL STAT 05/12/2024 10:26 AM COMPUTER 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 Neuro-endocrine carcinoma (HCC) VITAMIN D 25 HYDROXY Routine 05/12/2024 10:26 AM COMPUTER 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 Neuroendocrine carcinoma (HCC) 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) MANUAL DIFFERENTIAL STAT 05/12/2024 1 0:26 AM COMPUTER 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 Neuro-endocrine carcinoma (HCC) PHOSPHORUS Routine 05/12/2024 10:26 AM COMPUTER 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 Neuroendocrine carcinoma (HCC) 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) MAGNESIUM STAT 05/12/2024 10:26 AM COMPUTER 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 Neuro-endocrine carcinoma (HCC) LIPID PANEL Routine 05/12/2024 10:26 AM COMPUTER 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 Neuroendocrine carcinoma (HCC) 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) COMPREHENSIVE METABOLIC PANEL STAT 05/12/2024 10:26 AM COMPUTER 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 Neuro-endocrine carcinoma (HCC) documented in this encounter Results * (ABNORMAL) Manual Differential (05/12/2024 10:26 AM COMPUTER 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) Pathologist [facility] Differential Auto RBC morphology Present(A ) [facility] Anisocytosis Slight(A) [facility] Elliptocytes 3-7/HPF(A ) [facility] Platelet estimate Decreased (A) [facility] Blood 05/12/2024 10:2 6 AM COMPUTER 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 05/12/2024 10:27 AM COMPUTER 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 us Eren Cr MD LAB BLOOD ORDERABLES Final Re sult [facility] [place] [address] * (ABNORMAL) eGFR (05/12/2024 10:26 AM COMPUTER 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) eGFR 38(L) >=60 mL/min/1. 73 m2 Comment: [...] reviewed 2021. Blood 05/12/2024 10:2 6 AM COMPUTER 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 05/12/2024 10:27 AM COMPUTER 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 us Eren Cr MD LAB BLOOD ORDERABLES Final Re sult [facility] [place] [address] * (ABNORMAL) Differential, auto (05/12/2024 10:26 AM COMPUTER 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) Pathologist [facility] Neutrophil abs 2.5 1.5 - 6.5 K/cumm Comment:Testing performed by : [facility], [address] [place] [id number] Imm gran abs 0.0 0.0 - 0.1 K/cumm [facility] Lymphocyte abs 3.0 0.8 - 3.3 K/cumm [facility] Monocyte abs 2.2(H) 0.2 - 0.8 K/cumm [facility] Eosinophil abs 0.2 0.0 - 0.5 K/cumm [facility] Basophil abs 0.0 0.0 - 0.1 K/cumm [facility] Neutrophil pct 31.2 % [facility] Comment: Interpretive Data Percent cell count reference ranges are not reported, since discordance with absolute values may lead to misinterpretation of CBC data. Current Interpretive Data was last revised on 2017. Imm gran pct 0.3 % [facility] Comment: Interpretive Data Percent cell count reference ranges are not reported, since discordance with absolute values may lead to misinterpretation of CBC data. Current Interpretive Data was last revised on 2017. Lymphocyte pct 37.5 % [facility] Comment: Interpretive Data Percent cell count reference ranges are not reported, since discordance with absolute values may lead to misinterpretation of CBC data. Current Interpretive Data was last revised on 2017. Monocyte pct 28.1 % [facility] Comment: Interpretive Data Percent cell count reference ranges are not reported, since discordance with absolute values may lead to misinterpretation of CBC data. Current Interpretive Data was last revised on 2017. Eosinophil pct 2.5 % [facility] Comment: Interpretive Data Percent cell count reference ranges are not reported, since discordance with absolute values may lead to misinterpretation of CBC data. Current Interpretive Data was last revised on 2017. Basophil pct 0.4 % [facility] Comment: Interpretive Data Percent cell count reference ranges are not reported, since discordance with absolute values may lead to misinterpretation of CBC data. Current Interpretive Data was last revised on 2017. Blood 05/12/2024 10:2 6 AM COMPUTER 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 05/12/2024 10:27 AM COMPUTER 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 us Eren Cr MD LAB BLOOD ORDERABLES Final [facility] Department [place] [address] * (ABNORMAL) CBC with auto differential (05/12/2024 10:26 AM COMPUTER 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) WBC 7.9 3.8 - 9.9 K/cumm Comment:Testing performed by : [facility], [address] [place] [address] Hgb 11.3(L) 11.9 - 15.5 g/dL [facility] Comment:Testing performed by : [address] [address] Hct 35.5(L) 35.6 - 45.5 % [facility] Comment:Testing performed by : [address] [address] Plt 129(L) 150 - 400 K/cumm [facility] Comment:Testing performed by : [address] [address] MPV 9.0(L) 9.1 - 12.3 fL [facility] RBC 3.57(L) 3.90 - 5.20 M/cumm [facility] MCV 99.4(H) 81.3 - 96.4 fL [facility] MCH 31.7 27.1 - 33.3 pg [facility] MCHC 31.8(L) 32.3 - 35.7 g/dL [facility] RDW CV 15.7(H) 11.1 - 14.9 % [facility] RDW SD 57.3(H) 35.7 - 48.1 fL [facility] NRBC abs 0.00 0.00 - 0.01 K/cumm [facility] Blood 05/12/2024 10:2 6 AM COMPUTER 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 05/12/2024 10:27 AM COMPUTER 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 us Eren Cr MD LAB BLOOD ORDERABLES Final Re sult [facility] Department of Laboratories [place], [place] [id number] * (ABNORMAL) Comprehensive metabolic panel (05/12/2024 10:26 AM COMPUTER 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) [facility] Sodium 139 135 - 145 mmol/L Comment:Testing performed by : [address] [address] Potassium, pl 4.3 3.3 - 4.9 mmol/L [facility] Chloride 109 97 - 110 mmol/L [facility] CO2 22 22 - 32 mmol/L [facility] Anion gap 8 2 - 15 mmol/L [facility] BUN 20 6 - 25 mg/dL [facility] Creatinine 1.44(H) 0.60 - 1.10 mg/dL [facility] Glucose 89 70 - 199 mg/dL [facility] Comment: Interpretive Data Fasting glucose >/= 126 [...] Calcium 10.1 8.5 - 10.3 mg/dL [facility] Bilirubin, total 0.4 0.1 - 1.2 mg/dL [facility] Protein, pl 6.1(L) 6.5 - 8.5 g/dL [facility] Albumin 4.0 3.5 - 5.0 g/dL [facility] Alk phos 66 40 - 130 Units/L [facility] ALT 21 7 - 45 Units/L [facility] AST 38 10 - 45 Units/L [facility] Blood 05/12/2024 10:2 6 AM COMPUTER 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 05/12/2024 10:27 AM COMPUTER 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 us Eren Cr MD LAB BLOOD ORDERABLES Final Re sult [facility] Department [place] [address] * Magnesium (05/12/2024 10:26 AM COMPUTER 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) [facility] Magnesium 1.5 1.4 - 2.5 mg/dL Comment:Testing performed by : [facility], [address] [place] [id number] Blood 05/12/2024 10:2 6 AM COMPUTER 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 05/12/2024 10:27 AM COMPUTER 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 us Eren Cr MD LAB BLOOD ORDERABLES Final Re sult [facility] [place] [address] * (ABNORMAL) Lipid panel (05/12/2024 10:26 AM COMPUTER 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) Cholesterol 128 30 - 199 mg/dL Comment: [...] on 2018. Triglycerides 133 <=149 mg/dL [facility] Comment: [...] revised on 2018. HDL 37(L) >=40 mg/dL [facility] Comment: Interpretive Data Ages < or = [...] on 2018. LDL, calculated 67 <=129 mg/dL [facility] Comment: Interpretive Data Ages < or = [...] on 2024. Non-HDL Cholesterol 91 mg/dL [facility] Comment: Interpretive [...] revised on 2018. Chol/HDL ratio 3 [facility] Blood 05/12/2024 10:2 6 AM COMPUTER 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 05/12/2024 11:56 AM COMPUTER 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 us Eren Cr MD LAB BLOOD ORDERABLES Final Re sult Performing Organization Address City/[facility]/[employer] Phone Number [facility] [place] [address] * Phosphorus (05/12/2024 10:26 AM COMPUTER 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) Phosphorus, pl 2.9 2.3 - 4.5 mg/dL Comment:Testing performed by : [facility], [address] [place] [id number] Blood 05/12/2024 10:2 6 AM COMPUTER 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 05/12/2024 10:27 AM COMPUTER 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 us Eren Cr MD LAB BLOOD ORDERABLES Final Re sult [facility] [place] [address] * (ABNORMAL) Vitamin D 25 hydroxy (05/12/2024 10:26 AM COMPUTER 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) Vitamin D 25-OH 18(L) 30 - 80 ng/mL Blood 05/12/2024 10:2 6 AM COMPUTER 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 05/12/2024 11:56 AM COMPUTER 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 Eren Cr MD LAB BLOOD ORDERABLES Final Re sult [facility] [place] [address] * (ABNORMAL) Chromogranin A (05/12/2024 10:26 AM COMPUTER 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) Chromogranin A 4282(H) <93 ng/mL [facility] Comment: Impaired renal or hepatic function or treatment with proton pump inhibitors may result in artifactual elevations of Chromogranin A. ADDITIONAL INFORMATION The testing method is a homogeneous time-resolved immunofluorescent assay manufactured by [employer] and performed on the [employer]act Plus. ? Values obtained with different [...] examination and other findings. Test Performed by: [address] [address] Sheet Combining Operator: Carley Tony Ph.D.; CLIA# [id number] Blood 05/12/2024 10:2 6 AM COMPUTER 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 05/12/2024 11:41 AM COMPUTER 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 Eren Cr MD LAB BLOOD ORDERABLES Final Re sult [facility] [place] [address] [place] ref Lab documented in this encounter Visit [...] 05/12/2024 documented in this encounter Care Teams Area Operations Manager Relationship Specialty Start Date End Date Julio César Briseno MD PCP - General 10/01/16 Eren Cr MD Referring Physician Medical Oncology 11/25/18 Yohana Bowen MD Radiation Oncologist Radiation Oncology 11/25/18 Alejo Mi MD [address] [place] [address] Referring Physician Nephrology 03/07/23 documented as of this encounter
--- OUTSIDE RECORDS SUMMARY | 2024-06-26 01:52 | XMS_ITS | Encounter Summary ---
Author Organization [facility] Healthcare Address [address] [place] [address] Care Team Providers Care Pesticide Use Medical Coordinator Name Role Phone Julio César Briseno MD Primary Care Provider Eren Cr MD Unavailable [phone] Yohana Bowen MD Unavailable Alejo Mi MD Unavailable [phone] Encounter Details Date Type Department Care Team (Latest Contact Info) Description 06/13/2024 4:24 PM MECHANIC CHIEF - 06/13/2024 11:59 PM MECHANIC CHIEF Hospital Encounter [facility] ([facility]) [address] [place] [id number] Dehydration (Primary Dx); Nausea; Hypertension, unspecified [...] on file Legal Sex Female 2:41 PM MECHANIC CHIEF Gender Identity Not on file Sexual Orientation Straight 02/19/2021 9: 29 AM CDT Occupation Industry Job Start Date Job End Date retired Not on file Not on file Not on file documented as of this encounter Last Filed Vital Signs Vital Sign Reading Time Taken Comments Blood Pressure 184/79 06/13/2024 4:38 PM MECHANIC CHIEF Pulse 54 06/13/2024 4:28 PM MECHANIC CHIEF Temperature 36.4 ??C (97.5 ??F) 06/13/2024 4:28 PM CS T Respiratory Rate 16 06/13/2024 4:28 PM MECHANIC CHIEF Oxygen Saturation 98% 06/13/2024 4:28 PM MECHANIC CHIEF Inhaled Oxygen Concentration - - Weight - [...] 1 tablet (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) by mouth chain hoist operator before breakfast 90 tablet 3 11/28/2023 [...] mouth nightly 0.9 % sodium chloride ([facility] sodium chloride 0.9%) injectionIndicati ons:line care Infuse 10 mL into a venous catheter once a week On saturday 4 0.9 % sodium chloride (sodium chloride 0.9%) 0.9% infusion 05/22/2023 4 amoxicillin 500 mg capsule TAKE 4 CAPSULES BY MOUTH 1 HOUR BEFORE APPOINTMENT 01/27/2024 4 ascorbic acid, vitamin C, 500 mg capsuleIndication s:supplement Take 1 tablet by mouth chain hoist operator before breakfast 07/04/2016 4 clotrimazole-beta methasone (LOTRISONE) cream Apply 1 Application topically daily as needed (rash) 4 coenzyme [id number] 100-5 mg-unit capsuleIndication s:supplement Take 1 tablet by mouth chain hoist operator before breakfast 4 diphenoxylate-atr opine (LOMOTIL) 2.5-0.025 [...] (ATROVENT) 42 mcg (0.06 %) nasal spray [place] 1 spray twice a day by nasal [...] - 06/13/2024 4:30 PM CST Oncology Medicine [facility] Patient is a 73 y.o. female with chief complaint of nausea/vomiting. 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 Patient receiving Octreotide; O23D172/09/28.Afinitor taken for 2 months but discontinue due [...] she also underwent right colectomy in [facility] OR by Dr. Greyson Reeves. [...] Sig Dispense Refill 0.9 % sodium chloride ([facility] sodium chloride 0.9%) injection Infuse [...] mg capsule Take 1 tablet by mouth chain hoist operator before breakfast (Patient not taking: Reported on 12/24/2023) cholecalciferol (VITAMIN D-3) 1,000 unit Take 1 tablet/capsule (1,000 Units total) by mouth daily (Patient taking differently: Take 1 tablet/capsule (1,000 Units total) by mouth every morning) 90 tablet/capsule 3 clotrimazole-betamethasone (LOTRISONE) cream Apply 1 Application topically daily as needed (rash) (Patient not taking: Reported on 01/24/2024) coenzyme [id number] E 100-5 mg-unit capsule Take 1 tablet by mouth chain hoist operator before breakfast (Patient not taking: Reported [...] (ATROVENT) 42 mcg (0.06 %) nasal spray [place] 1 spray twice a day by nasal route for 13 days. levothyroxine (SYNTHROID) 100 mcg tablet Take 1 tablet (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) by mouth chain hoist operator before breakfast 90 tablet 3 lidocaine-prilocaine (lidocaine-prilocaine) [...] not rub in,and cover with non absorbant dressing) 30 g [...] Sandhya Chirinos MD at 06/17/2024 1:01 PM MECHANIC CHIEF ANIC CHIEF ANIC CHIEF documented in this encounter Nursing Notes * Shelbie Mcbride RN - 06/13/2024 4:30 PM CST Arrived at [facility] for Evaluation NVD weakness. Port was accessed, labs collected, RVP, Lactate, UA, bolus started, pepcid, dex and zofran given along with a dose of Norvasc. BP continued to rise 210/76 she was delivered to the ED for higher level of care. ANIC CHIEF documented in this encounter Plan of Treatment Pending Results Name Type Priority Associated Diagnoses Date /Time Senior staff review Lab STAT 06/13 4:30 PM MECHANIC CHIEF Scheduled Orders Name Type Priority Associated Diagnoses Orde r Schedule Senior staff review Lab STAT Once for 1 Occurrences starting 06/13/2024 until 06/13/2024 documented as of this encounter Procedures Procedure Name Priority Date/Time Associated Diagnosis Comments URINALYSIS AND REFLEX TO MICROSCOPIC AND CULTURE STAT 06/13/2024 6:05 PM MECHANIC CHIEF URINALYSIS, MICROSCOPIC ONLY STAT 06/13/2024 6:05 PM MECHANIC CHIEF RESPIRATORY PATHOGEN PANEL STAT 06/13/2024 4:56 PM MECHANIC CHIEF POC BLOOD GAS AND CHEMISTRIES, ARTERIAL Routine 06/13/2024 4:53 PM MECHANIC CHIEF EGFR STAT 06/13/2024 4:30 PM MECHANIC CHIEF SENIOR STAFF REVIEW STAT 06/13/2024 4 :30 PM MECHANIC CHIEF CBC WITH AUTO DIFFERENTIAL STAT 06/13/2024 4:30 PM MECHANIC CHIEF MANUAL DIFFERENTIAL STAT 06/13/2024 4 :30 PM MECHANIC CHIEF PHOSPHORUS STAT 06/13/2024 4:30 PM MECHANIC CHIEF MAGNESIUM STAT 06/13/2024 4:30 PM MECHANIC CHIEF COMPREHENSIVE METABOLIC PANEL STAT 06/13/2024 4:30 PM MECHANIC CHIEF documented in this encounter Results * (ABNORMAL) Urinalysis, microscopic only (06/13/2024 6:05 PM MECHANIC CHIEF) WBC, ur 6-10(A) 0 - 5 /HPF RBC, ur 3-5(A) 0 - 2 /HPF [facility] Epithelial cells, squamous, ur 1-5 0 - 5 /HPF [facility] Bacteria, ur Trace(A) [facility] Mucous, ur Present(A) [facility] Hyaline casts, ur 1-5 0 - 10 /LPF [facility] Culture Reflex Comment Reflex conditions for urine culture (WBC >10) not met. [facility] Urine, clean voided 06/13/2024 6:05 PM MECHANIC CHIEF 06/13/2024 6:14 PM MECHANIC CHIEF us Sharona Gomez WET MACHINE OPERATOR LAB URINE ORDERABLES Mel badillo Result JASON [facility] One [facility] [place] [address] * (ABNORMAL) Urinalysis reflex to microscopic and culture Urine, clean voided (06/13/2024 6:05 PM MECHANIC CHIEF) Color, ur Straw Yellow Clarity, ur Clear [...] tendency for uric acid stone formation. Source: [facility] Current Interpretive Data was last [...] CENTER Urine, clean voided 06/13/2024 6:05 PM MECHANIC CHIEF 06/13/2024 6:14 PM MECHANIC CHIEF Sharona Gomez NP LAB MICROBIOLOGY - GENERA L ORDERABLES Final Result [facility] One [facility] Department [place] [address] * Respiratory pathogen panel Nasopharyngeal (06/13/2024 4:56 PM MECHANIC CHIEF) Influenza A RNA Not Detected Not Detected [...] Detected [facility] Nasopharyngeal 06/13/2024 4 :56 PM MECHANIC CHIEF 06/13/2024 5:34 PM MECHANIC CHIEF Narrative [facility] - 06/13/2024 6:38 PM MECHANIC CHIEF Is the Patient experiencing symptoms consistent with COVID?->Yes Surveillance testing for transplant patient?->No ??Interpretive Data The [employer] FilmArray Respiratory Panel (RP2.1) assay is a [...] assay has FDA clearance for testing of WET MACHINE OPERATOR swabs. ??The performance of additional specimen types has been assessed by the performing laboratory. ??The performance characteristics of this assay have been determined by [facility] Molecular Infectious Disease Laboratory. Current interpretive data was last revised on 22. Sharona Gomez WET MACHINE OPERATOR LAB MICROBIOLOGY - GENERA L ORDERABLES Final Result Performing Organization Address City/[facility] Co de Phone Number [facility] Department [place] [address] * POC Blood Gas and Chemistries, Arterial - (06/13/2024 4:53 PM MECHANIC CHIEF) [facility] Lactate, POC 1.3 0.7 - 2.2 mmol/L Hct, POC 37.0 36.3 - 45.3 % [facility] Total Hb, POC 12.2 11.9 - 15.5 g/dL [facility] Blood 06/13/2024 4:53 PM MECHANIC CHIEF 06/13/2024 4:53 PM MECHANIC CHIEF Eren Cr MD LAB POCT ORDERABLES - DEVICE Final Result Performing Organization Address City/[facility] Co de Phone Number [facility] Department [place] [address] * (ABNORMAL) Manual Differential (06/13/2024 4:30 PM MECHANIC CHIEF) [facility] Differential Manual Cells Counted [address] [facility] [...] [facility] RBC morphology Present(A) [facility] Anisocytosis Slight(A) [facility] Poikilocytosis Slight(A) [facility] Macrocytes 3-7/HPF(A) [facility] Schistocytes 1-2/HPF(A) [facility] Blood 06/13/2024 4:30 PM MECHANIC CHIEF 06/13/2024 5:36 PM MECHANIC CHIEF Sharona Gomez WET MACHINE OPERATOR LAB BLOOD ORDERABLES Mel aby Result Performing Organization Address City/State/[facility] Co de Phone Number [facility] One [facility] Department [place] [address] * Senior staff review (06/13/2024 4:30 PM MECHANIC CHIEF) Senior Staff Review Specimen Blood Senior Staff Review Review Done [facility] Comment:Reviewed by senior james salcedo. 06/14/2024 07:47:49 MECHANIC CHIEF by MATT Blankenship. Blood 06/13/2024 4:30 PM MECHANIC CHIEF 06/13/2024 5:36 PM MECHANIC CHIEF us Eren Cr MD LAB BLOOD ORDERABLES Final Re sult Performing Organization Address [facility] Co de Phone Number [facility] Department [place] [employer] [address] * (ABNORMAL) eGFR (06/13/2024 4:30 PM MECHANIC CHIEF) eGFR 25(L) >=60 mL/min/1. 73 m2 Comment: [...] last reviewed 2021. Blood 06/13/2024 4:30 PM MECHANIC CHIEF 06/13/2024 4:57 PM MECHANIC CHIEF us Sharona Gomez NP LAB BLOOD ORDERABLES Mel l Result Performing Organization Address [facility]/ZIP Co de Phone Number [facility] Department of [employer] [place], [place] [id number] * Phosphorus (06/13/2024 4:30 PM MECHANIC CHIEF) [facility] Phosphorus, pl 2.7 2.3 - 4.5 mg/dL Blood (Blood, Venous) 06/13/2024 4:30 PM MECHANIC CHIEF 06/13/2024 4:57 PM MECHANIC CHIEF Sharona Gomez WET MACHINE OPERATOR LAB BLOOD ORDERABLES Mel l Result Performing Organization Address City/[facility]/ZIP Co de Phone Number [facility] Department [place] [address] * Magnesium (06/13/2024 4:30 PM MECHANIC CHIEF) [facility] Magnesium 1.9 1.4 - 2.5 mg/dL Blood (Blood, Venous) 06/13/2024 4:30 PM MECHANIC CHIEF 06/13/2024 4:57 PM MECHANIC CHIEF Sharona Gomez WET MACHINE OPERATOR LAB BLOOD ORDERABLES Mel l Result Performing Organization Address [facility] de Phone Number [facility] Department [place] [address] * (ABNORMAL) Comprehensive metabolic panel (06/13/2024 4:30 PM MECHANIC CHIEF) [facility] Sodium 139 135 - 145 mmol/L Potassium, pl 4.4 3.3 - 4.9 mmol/L [facility] [...] 2022. Calcium 9.8 8.5 - 10.3 mg/dL [facility] Bilirubin, total 0.6 0.1 - 1.2 mg/dL [facility] Protein, pl 6.6 6.5 - 8.5 g/dL [facility] Albumin 4.2 3.5 - 5.0 g/dL [facility] Alk phos 85 40 - 130 Units/L [facility] ALT 14 7 - 45 Units/L [facility] AST 32 10 - 45 Units/L [facility] Blood 06/13/2024 4:30 PM MECHANIC CHIEF 06/13/2024 4:57 PM MECHANIC CHIEF Sharona Gomez WET MACHINE OPERATOR LAB BLOOD ORDERABLES Mel badillo Result [facility] One [facility] Department [place] [address] * (ABNORMAL) CBC with auto differential (06/13/2024 4:30 PM MECHANIC CHIEF) WBC 10.1(H) 3.8 - 9.9 K/cumm Hgb [...] [facility] Blood 06/13/2024 4:30 PM MECHANIC CHIEF 06/13/2024 5:36 PM MECHANIC CHIEF Sharona Gomez NP LAB BLOOD ORDERABLES Edit ed Result - Final [facility] Department [place] [address] documented in this encounter Visit Diagnoses Diagnosis [...] rtension, unspecified type Given 06/13/2024 5:23 PM MECHANIC CHIEF 5 mg dexAMETHasone (DECADRON) 4 mg/mL injection 4 mg 4 mg, intravenous, Administer over 2 Minutes, Once, On 06/13/24 at 1725, For 1 doseIndications:Nausea Given 06/13/2024 5:05 PM MECHANIC CHIEF 4 mg famotidine (PEPCID) 20 mg/50 mL in sodium chloride 0.9% (premix) 20 mg 20 mg, intravenous, at 150 mL/hr, Administer over 20 Minutes, Once, On 06/13/24 at 1725, For 1 doseIndications:Nausea New Bag 06/13/2024 5:11 PM MECHANIC CHIEF 20 mg 150 mL/h r ondansetron (ZOFRAN) injection 8 mg 8 mg, intravenous, Administer over 2 Minutes, Once, On 06/13/24 at 1725, For 1 doseIndications:Nausea Given 06/13/2024 5:05 PM MECHANIC CHIEF 8 mg sodium chloride 0.9% bolus 1,000 mL 1,000 mL, intravenous, at 500 mL/hr, Administer over 2 Hours, Once, On 06/13/24 at 1700, For 1 dose, Indications: dehydrationIndications:dehyd ration New Bag 06/13/2024 5:11 PM MECHANIC CHIEF 1,000 mL 500 mL/hr documented in this encounter Additional Health Concerns Infection Onset Date Last Indicated Resolved Time COVID: Suspected 06/13/2024 06/13/2024 06/13/2024 6:39 PM MECHANIC CHIEF documented as of this encounter Care Teams Pesticide Use Medical Coordinator Relationship Specialty Start Date End Date Julio César Briseno MD PCP - General 10/01/16 Eren Cr MD Referring Physician Medical Oncology 11/25/18 Yohana Bowen MD Radiation Oncologist Radiation Oncology 11/25/18 Alejo Mi MD [address] [place] [address] Referring Physician Nephrology 03/07/23 documented as of this encounter
--- OUTSIDE RECORDS SUMMARY | 2024-06-26 01:52 | XMS_ITS | Encounter Summary ---
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) Procedures [place] OCTREOTIDE INJECTION, DEPOT Octreotide 28 Day Cycles - Carcinoid Eren Cr MD [address] [facility] [address] [place] [address] Phone: tel: fax: [address] [address] Phone: tel: fax: Referral ID Status Reason Start Date Expiration Date V isits Requested Visits Authorized [id number] Authorized 11/28/2017 02/05/2025 1 150 Encounter Details Date Type Department Care Team (Latest Contact Info) Description 06/09/2024 1:15 PM SURVEY DIRECTOR Clinical Support [facility] - Lab Collection [address] [facility] Floor [address] [place] [address] Neuroendocrine carcinoma (HCC); Malignant neoplasm metastatic to [...] file Legal Sex Female 2:41 PM SURVEY DIRECTOR Gender Identity Not on file Sexual Orientation Straight 02/19/2021 9: 29 AM CDT Occupation Industry Job Start Date Job End Date retired Not on file Not on file Not on file documented as of this encounter Plan of Treatment Not on file documented as of this encounter Procedures Procedure Name Priority Date/Time Associated Diagnosis Comments EGFR Routine 06/09/2024 1:27 PM SURVEY DIRECTOR Neuroendocrine carcinoma (HCC) CHROMOGRANIN A Routine 06/09/2024 1:27 PM SURVEY DIRECTOR Neuroendocrine carcinoma (HCC) Malignant neoplasm metastatic to liver (HCC) VITAMIN D 25 HYDROXY Routine 06/09/2024 1:27 PM SURVEY DIRECTOR Neuroendocrine carcinoma (HCC) Malignant neoplasm metastatic to liver (HCC) PHOSPHORUS Routine 06/09/2024 1:27 PM SURVEY DIRECTOR Neuroendocrine carcinoma (HCC) Malignant neoplasm metastatic to liver (HCC) LIPID PANEL Routine 06/09/2024 1:27 PM SURVEY DIRECTOR Neuroendocrine carcinoma (HCC) Malignant neoplasm metastatic to liver (HCC) COMPREHENSIVE METABOLIC PANEL Routine 06/09/2024 1:27 PM SURVEY DIRECTOR Neuroendocrine carcinoma (HCC) documented in this encounter Results * (ABNORMAL) eGFR (06/09/2024 1:27 PM SURVEY DIRECTOR) eGFR 30(L) >=60 mL/min/1. 73 m2 Comment: [...] last reviewed 2021. Blood 06/09/2024 1:27 PM SURVEY DIRECTOR 06/09/2024 1:40 PM SURVEY DIRECTOR us Claude Browning MD LAB BLOOD ORDERABLES Mel l Result [facility] One [facility] Department [place] [address] * (ABNORMAL) Comprehensive metabolic panel (06/09/2024 1:27 PM SURVEY DIRECTOR) Sodium 140 135 - 145 mmol/L Potassium, pl 4.1 3.3 - 4.9 mmol/L [facility] Chloride 109 97 - 110 mmol/L [facility] CO2 24 22 - 32 mmol/L [facility] Anion gap 7 2 - 15 mmol/L [facility] BUN 20 6 - 25 mg/dL [facility] Creatinine 1.73(H) 0.60 - 1.10 mg/dL [facility] Glucose 90 70 - 199 mg/dL [facility] [...] 2022. Calcium 9.6 8.5 - 10.3 mg/dL [facility] Bilirubin, total 0.6 0.1 - 1.2 mg/dL [facility] Protein, pl 6.4(L) 6.5 - 8.5 g/dL [facility] Albumin 3.9 3.5 - 5.0 g/dL [facility] Alk phos 79 40 - 130 Units/L [facility] ALT 9 7 - 45 Units/L [facility] AST 28 10 - 45 Units/L [facility] Blood 06/09/2024 1:27 PM SURVEY DIRECTOR 06/09/2024 1:40 PM SURVEY DIRECTOR us Claude Browning MD LAB BLOOD ORDERABLES Mel l Result [facility] One [facility] [place] [address] * (ABNORMAL) Lipid panel (06/09/2024 1:27 PM SURVEY DIRECTOR) [facility] Signature Cholesterol 135 30 - 199 [...] revised on 2018. HDL 39(L) >=40 mg/dL [facility] Comment: Interpretive Data [...] on 2018. LDL, calculated 68 <=129 mg/dL [facility] Comment: Interpretive [...] revised on 2024. Non-HDL Cholesterol 96 mg/dL [facility] Comment: Interpretive Data [...] last revised on 2018. Chol/HDL ratio 3 [facility] Blood 06/09/2024 1:27 PM SURVEY DIRECTOR 06/09/2024 1:40 PM SURVEY DIRECTOR Eren Cr MD LAB BLOOD ORDERABLES Final Re sult Performing Organization Address [facility]/[place] [facility] de Phone Number [facility] Department [place] [address] * Phosphorus (06/09/2024 1:27 PM SURVEY DIRECTOR) Phosphorus, pl 3.1 2.3 - 4.5 mg/dL Blood 06/09/2024 1:27 PM SURVEY DIRECTOR 06/09/2024 1:40 PM SURVEY DIRECTOR Eren Cr MD LAB BLOOD ORDERABLES Final Re sult Performing Organization Address [facility] de Phone Number [facility] Department [place] [address] * (ABNORMAL) Vitamin D 25 hydroxy (06/09/2024 1:27 PM SURVEY DIRECTOR) Vitamin D 25-OH 16(L) 30 - 80 ng/mL Blood 06/09/2024 1:27 PM SURVEY DIRECTOR 06/09/2024 1:40 PM SURVEY DIRECTOR Eren Cr MD LAB BLOOD ORDERABLES Final Re sult Performing Organization Address [facility]/[place] [facility] de Phone Number [facility] Department [place] [address] * (ABNORMAL) Chromogranin A (06/09/2024 1:27 PM SURVEY DIRECTOR) Chromogranin A 4537(H) <93 ng/mL [place] [facility] Comment: Impaired renal or hepatic function or treatment with proton pump inhibitors may result in artifactual elevations of Chromogranin A. ADDITIONAL INFORMATION The testing method is a homogeneous time-resolved immunofluorescent assay manufactured by [employer] and performed on the [employer] Compact Plus. ? Values obtained with different [...] examination and other findings. Test Performed by: [place] [address] Cuff Runner: Carley Tony Ph.D.; CLIA# [id number] Blood 06/09/2024 1:27 PM SURVEY DIRECTOR 06/09/2024 3:08 PM SURVEY DIRECTOR us Eren Cr MD LAB BLOOD ORDERABLES Final Re sult [facility] Department [place] [address] [facility] documented in this encounter Visit Diagnoses Diagnosis Neuroendocrine carcinoma (HCC) Other malignant neoplasm of unspecified site Malignant neoplasm metastatic to liver (HCC) documented in this encounter Orders Appointment Requests Count Last Ordered Date Fi rst Ordered Date ONCBCN LAB APPOINTMENT 1 06/09/2024 documented in this encounter Care Teams Wood Router Hand Relationship Specialty Start Date End Date Julio César Briseno MD PCP - General 10/01/16 Eren Cr MD Referring Physician Medical Oncology 11/25/18 Yohana Bowen MD Radiation Oncologist Radiation Oncology 11/25/18 Alejo Mi MD [address] [address] Referring Physician Nephrology 03/07/23 documented as of this encounter
--- OUTSIDE RECORDS SUMMARY | 2024-06-26 01:52 | XMS_ITS | Encounter Summary ---
Author Organization [facility] Address [address] [place] [address] Phone Care Team Providers Care Clip On Sunglasses Assembler Name Role Phone Julio César Briseno MD Primary Care Provider [phone] Eren Cr MD Unavailable [phone] Yohana Bowen MD Unavailable Alejo Mi MD Unavailable [phone] Encounter Details Date Type Department Care Team (Late st Contact Info) Description 05/29/2024 Telephone [facility] Oncology [facility] Floor [address] [place] [address] Renay Renee RN Social History [...] on file Legal Sex Female 2:41 PM RADIOLOGY ORDERLY Gender Identity Not on file Sexual Orientation [...] Patient verbalized understanding and agreeable with plan. OLOGY ORDERLY documented in this encounter Plan of Treatment Not on file documented as of this encounter Visit Diagnoses Not on filedocumented in this encounter Care Teams Clip On Sunglasses Assembler Relationship Specialty Start Date End Date Julio César Briseno MD PCP - General 10/01/16 Eren Cr MD Referring Physician Medical Oncology 11/25/18 Yohana Bowen MD Radiation Oncologist Radiation Oncology 11/25/18 Alejo Mi MD [address] [place] [address] Referring Physician Nephrology 03/07/23 documented as of this encounter
--- OUTSIDE RECORDS SUMMARY | 2024-06-26 01:52 | XMS_ITS | Encounter Summary ---
Author Organization [facility] Healthcare Address [address] [place] [address] Care Team Providers Care Research And Evaluation Analyst Name Role Phone Julio César Briseno MD Primary Care Provider [phone] Eren Cr MD Unavailable [phone] Yohana Bowen MD Unavailable Alejo Mi MD Unavailable Encounter Details Date Type Department Care Team (Late st Contact Info) Description 05/13/2024 Orders Only [facility] [address] [place] [phone] Eren Cr MD [address] [place] [address] Social History Tobacco Use Types [...] file Legal Sex Female 2:41 PM WOOD TANK ERECTOR Gender Identity Not on file Sexual Orientation Straight 02/19/2021 9: 29 AM CDT Occupation Industry Job Start Date Job End Date retired Not on file Not on file Not on file documented as of this encounter Plan of Treatment Not on file documented as of this encounter Visit Diagnoses Not on filedocumented in this encounter Care Teams Research And Evaluation Analyst Relationship Specialty Start Date End Date Julio César Briseno MD PCP - General 10/01/16 Eren Cr MD Referring Physician Medical Oncology 11/25/18 Yohana Bowen MD Radiation Oncologist Radiation Oncology 11/25/18 Alejo Mi MD [address] [place] [address] Referring Physician Nephrology 03/07/23 documented as of this encounter
--- OUTSIDE RECORDS SUMMARY | 2024-06-26 01:52 | XMS_ITS | Encounter Summary ---
Author Organization [facility] Healthcare Address [address] [place] [address] Care Team Providers Care Radiological Equipment Specialist Name Role Phone Julio César Briseno MD Primary Care Provider [phone] Eren Cr MD Unavailable [phone] Yohana Bowen MD Unavailable Alejo Mi MD Unavailable Encounter Details Date Type Department Care Team (Late st Contact Info) Description 05/26/2024 Telephone [facility] [address] [facility] Floor [address] [place] [address] Callie Yousif, [place] Social History Tobacco Use [...] file Legal Sex Female 2:41 PM LOCK INSTALLER Gender Identity Not on file Sexual Orientation Straight 02/19/2021 9: 29 AM CDT Occupation Industry Job Start Date Job End Date retired Not on file Not on file Not on file documented as of this encounter Miscellaneous Notes * Telephone Encounter - Callie Yousif CPhT - 05/26/2024 3:50 PM LOCK INSTALLER FAXED copy of PA approval letter to [phone]. Received confirmation that transmission was successful. Called [employer] to let them know PA is approved stating 05/13/2024 until further notice. They requesteda copy. RECEIVED FAX from [facility] stating PA was required. INSTALLER documented in this encounter Plan of Treatment Not on file documented as of this encounter Visit Diagnoses Not on filedocumented in this encounter Care Teams Radiological Equipment Specialist Relationship Specialty Start Date End Date Julio César Briseno MD PCP - General 10/01/16 Eren Cr MD Referring Physician Medical Oncology 11/25/18 Yohana Bowen MD Radiation Oncologist Radiation Oncology 11/25/18 Alejo Mi MD [address] [place] [address] Referring Physician Nephrology 03/07/23 documented as of this encounter
--- OUTSIDE RECORDS SUMMARY | 2024-06-26 01:52 | XMS_ITS | Encounter Summary ---
Author Organization [facility] Healthcare Address [address] [place] [address] Care Team Providers Care Paper Core Machine Operator Name Role Phone Julio César Briseno MD Primary Care Provider [phone] Eren Cr MD Unavailable [phone] Yohana Bowen MD Unavailable Alejo Mi MD Unavailable Reason for Visit * Reason Comments Port Draw * Episode Based Medications (Routine) - Closed Specialty Diagnoses / Procedures Referred By Evelyne t Referred To Contact Diagnoses Neuro-endocrine carcinoma (HCC) Procedures study [id number] phase III cabozantinib Eren Cr MD [address] [facility] [address] [place] [address] Phone: tel: fax: [facility] [address] [facility] Advanced Medicine 7th [place] [address] Phone: tel: Referral ID Status Reason Start Date Expiration Date Visits Re quested Visits Authorized [id number] Closed 06/21/2021 06/26/2024 1 99 Encounter Details Date Type Department Care Team (Latest Contact Info) Description 04/14/2024 10:00 AM CDT Clinical Support [facility] [address] [address] Neuro-endocrine carcinoma (HCC); Neuroendocrine carcinoma (HCC); Malignant [...] file Legal Sex Female 2:41 PM METAL MOULDER Gender Identity Not on file Sexual Orientation [...] revised 2018. Creatinine Ur 178.7 mg/dL [facility] Comment: Interpretive Data No reference range established. Current interpretive data was last revised 2018. Protein/creatinin e ratio 141.0 0.0 - 180.0 mg/g CR [facility] Urine 04/14/2024 10:4 0 AM CDT 04/14/2024 11:52 AM CDT us Eren Cr MD LAB URINE ORDERABLES Final Re sult [facility] [place] [address] * (ABNORMAL) Manual Differential (04/14/2024 10:35 AM CDT) Differential Auto Neutrophil abs 2.7 1.5 - 6.5 K/cumm [facility] Comment:Testing performed by : [facility], [address] [facility] [address] Imm gran abs 0.0 0.0 - 0.1 K/cumm [facility] Lymphocyte abs 2.7 0.8 - 3.3 K/cumm [facility] Monocyte abs 1.3(H) 0.2 - 0.8 K/cumm [facility] Eosinophil abs 0.2 0.0 - 0.5 K/cumm [facility] Basophil abs 0.0 0.0 - 0.1 K/cumm [facility] Neutrophil pct 38.7 % [facility] Comment: Interpretive Data Percent cell count reference ranges are not reported, since discordance with absolute values may lead to misinterpretation of CBC data. Current Interpretive Data was last revised on 2017. Imm gran pct 0.3 % [facility] Comment: Interpretive Data Percent cell count reference ranges are not reported, since discordance with absolute values may lead to misinterpretation of CBC data. Current Interpretive Data was last revised on 2017. Lymphocyte pct 39.4 % [facility] Comment: Interpretive Data Percent cell count reference ranges are not reported, since discordance with absolute values may lead to misinterpretation of CBC data. Current Interpretive Data was last revised on 2017. Monocyte pct 18.5 % [facility] Comment: Interpretive Data Percent cell count reference ranges are not reported, since discordance with absolute values may lead to misinterpretation of CBC data. Current Interpretive Data was last revised on 2017. Eosinophil pct 2.8 % [facility] Comment: Interpretive Data Percent cell count reference ranges are not reported, since discordance with absolute values may lead to misinterpretation of CBC data. Current Interpretive Data was last revised on 2017. Basophil pct 0.3 % [facility] Comment: Interpretive Data Percent cell count reference ranges are not reported, since discordance with absolute values may lead to misinterpretation of CBC data. Current Interpretive Data was last revised on 2017. RBC morphology Present(A ) [facility] Anisocytosis Slight(A) [facility] Elliptocytes 3-7/HPF(A ) [facility] Platelet estimate Decreased (A) [facility] Blood 04/14/2024 10:3 5 AM CDT 04/14/2024 10:35 AM CDT us Eren Cr MD LAB BLOOD ORDERABLES Final Re sult [facility] Department [place] [address] * (ABNORMAL) eGFR (04/14/2024 10:35 AM CDT) [...] sult [facility] [place] [address] * (ABNORMAL) Differential, auto (04/14/2024 10:35 AM CDT) Neutrophil abs 2.7 1.5 - 6.5 K/cumm Comment:Testing performed by : [facility], [address] [place] [address] Imm gran abs 0.0 0.0 - 0.1 K/cumm [facility] Lymphocyte abs 2.7 0.8 - 3.3 K/cumm [facility] Monocyte abs 1.3(H) 0.2 - 0.8 K/cumm [facility] Eosinophil abs 0.2 0.0 - 0.5 K/cumm [facility] Basophil abs 0.0 0.0 - 0.1 K/cumm [facility] Neutrophil pct 38.7 % [facility] Comment: Interpretive Data Percent cell count reference ranges are not reported, since discordance with absolute values may lead to misinterpretation of CBC data. Current Interpretive Data was last revised on 2017. Imm gran pct 0.3 % [facility] Comment: Interpretive Data Percent cell count reference ranges are not reported, since discordance with absolute values may lead to misinterpretation of CBC data. Current Interpretive Data was last revised on 2017. Lymphocyte pct 39.4 % [facility] Comment: Interpretive Data Percent cell count reference ranges are not reported, since discordance with absolute values may lead to misinterpretation of CBC data. Current Interpretive Data was last revised on 2017. Monocyte pct 18.5 % [facility] Comment: Interpretive Data Percent cell count reference ranges are not reported, since discordance with absolute values may lead to misinterpretation of CBC data. Current Interpretive Data was last revised on 2017. Eosinophil pct 2.8 % [facility] Comment: Interpretive Data Percent cell count reference ranges are not reported, since discordance with absolute values may lead to misinterpretation of CBC data. Current Interpretive Data was last revised on 2017. Basophil pct 0.3 % [facility] Comment: Interpretive Data Percent cell count reference ranges are not reported, since discordance with absolute values may lead to misinterpretation of CBC data. Current Interpretive Data was last revised on 2017. Blood 04/14/2024 10:3 5 AM CDT 04/14/2024 10:35 AM CDT Eren Cr MD LAB BLOOD ORDERABLES Final Re sult [facility] One [facility] Department [place] [address] * (ABNORMAL) CBC with auto differential (04/14/2024 10:35 AM CDT) WBC 6.8 3.8 - 9.9 K/cumm Comment:Testing performed by : [address] [address] Hgb 10.8(L) 11.9 - 15.5 g/dL [facility] Comment:Testing performed by : [address] [address] Hct 33.5(L) 35.6 - 45.5 % [facility] Comment:Testing performed by : [address] [address] Plt 117(L) 150 - 400 K/cumm [facility] Comment:Testing performed by : [address] [address] MPV 9.9 9.1 - 12.3 fL [facility] RBC 3.42(L) 3.90 - 5.20 M/cumm [facility] MCV 98.0(H) 81.3 - 96.4 fL [facility] MCH 31.6 27.1 - 33.3 pg [facility] MCHC 32.2(L) 32.3 - 35.7 g/dL [facility] RDW CV 16.4(H) 11.1 - 14.9 % [facility] RDW SD 58.2(H) 35.7 - 48.1 fL [facility] NRBC abs 0.00 0.00 - 0.01 K/cumm [facility] Blood 04/14/2024 10:3 5 AM CDT 04/14/2024 10:35 AM CDT us Eren Cr MD LAB BLOOD ORDERABLES Final Re sult [facility] Department [place] [address] * (ABNORMAL) Comprehensive metabolic panel (04/14/2024 10:35 AM CDT) Pathologist [facility] Sodium 140 135 - 145 mmol/L Comment:Testing performed by : [facility], [address] [place] [address] Potassium, pl 4.6 3.3 - 4.9 mmol/L [facility] Chloride 111(H) 97 - 110 mmol/L [facility] CO2 24 22 - 32 mmol/L [facility] Anion gap 5 2 - 15 mmol/L [facility] BUN 16 6 - 25 mg/dL [facility] Creatinine 1.46(H) 0.60 - 1.10 mg/dL [facility] Glucose 96 70 - 199 mg/dL [facility] Comment: Interpretive Data Fasting glucose [...] 2022. Calcium 9.5 8.5 - 10.3 mg/dL [facility] Bilirubin, total 0.4 0.1 - 1.2 mg/dL [facility] Protein, pl 5.9(L) 6.5 - 8.5 g/dL [facility] Albumin 3.8 3.5 - 5.0 g/dL [facility] Alk phos 57 40 - 130 Units/L [facility] ALT 18 7 - 45 Units/L [facility] AST 32 10 - 45 Units/L [facility] Blood 04/14/2024 10:3 5 AM CDT 04/14/2024 10:35 AM CDT Eren Cr MD LAB BLOOD ORDERABLES Final Re sult Performing Organization Address [facility] Co de Phone Number [facility] Department [place] [address] * Magnesium (04/14/2024 10:35 AM CDT) Magnesium 1.5 1.4 - 2.5 mg/dL Comment:Testing performed by : [address] [address] Blood 04/14/2024 10:3 5 AM CDT 04/14/2024 10:35 AM CDT Eren Cr MD LAB BLOOD ORDERABLES Final Re sult Performing Organization Address [facility]/ZIP Co de Phone Number [facility] [place] [address] * (ABNORMAL) Phosphorus (04/14/2024 10:35 AM CDT) Phosphorus, pl 1.9(L) 2.3 - 4.5 mg/dL Comment:Testing performed by : [facility], [address] [place] [address] Blood 04/14/2024 10:3 5 AM CDT 04/14/2024 10:35 AM CDT us Eren Cr MD LAB BLOOD ORDERABLES Final Re sult [facility] [place] [address] * Lipid panel (04/14/2024 10:35 AM CDT) [...] on 2018. Triglycerides 130 <=149 mg/dL [facility] Comment: [...] revised on 2018. HDL 40 >=40 mg/dL [facility] Comment: Interpretive Data Ages < [...] on 2018. LDL, calculated 62 <=129 mg/dL [facility] Comment: Interpretive Data Ages < [...] revised on 2024. Non-HDL Cholesterol 85 mg/dL [facility] Comment: Interpretive Data Ages < [...] 3 [facility] Blood 04/14/2024 10:3 5 AM CDT 04/14/2024 11:52 AM CDT us Eren Cr MD LAB BLOOD ORDERABLES Final Re sult Performing Organization Address City/[facility] Co de Phone Number [facility] Department [place] [address] * (ABNORMAL) Vitamin D 25 hydroxy (04/14/2024 10:35 AM CDT) [facility] Vitamin D 25-OH 19(L) 30 - 80 ng/mL Blood 04/14/2024 10:3 5 AM CDT 04/14/2024 11:52 AM CDT Eren Cr MD LAB BLOOD ORDERABLES Final Re sult Performing Organization Address City/[facility] Co de Phone Number [facility] Department [place] [address] * (ABNORMAL) Phosphorus (04/14/2024 10:35 AM CDT) Pathologist [facility] Phosphorus, pl 2.0(L) 2.3 - 4.5 mg/dL Comment:Testing performed by : [facility], [address] [place] [address] Blood 04/14/2024 10:3 5 AM CDT 04/14/2024 10:35 AM CDT us Eren Cr MD LAB BLOOD ORDERABLES Final Re sult [facility] [place] [address] * (ABNORMAL) Chromogranin A (04/14/2024 10:35 AM CDT) [facility] Chromogranin A 2929(H) <93 ng/mL [facility] Comment: Impaired renal or hepatic function or treatment with proton pump inhibitors may result in artifactual elevations of Chromogranin A. ADDITIONAL INFORMATION The testing method is a homogeneous time-resolved immunofluorescent assay manufactured by [employer] and performed on the [employer] Plus. ? Values obtained with different [...] Performed by: [facility] [address] [place] [address] Caretaker Grounds: Carley Tony Ph.D.; CLIA# [id number] Blood 04/14/2024 10:3 5 AM CDT 04/14/2024 11:52 AM CDT Eren Cr MD LAB BLOOD ORDERABLES Final Re sult [facility] [place] [address] [facility] ref Lab documented in this encounter Visit Diagnoses Diagnosis Neuro-endocrine carcinoma (HCC) Other malignant neoplasm of unspecified site Neuroendocrine carcinoma (HCC) Other malignant neoplasm of unspecified site Malignant neoplasm metastatic to liver (HCC) documented in this encounter Orders Appointment Requests Count Last Ordered Date Fi rst Ordered Date ONCBCN LAB APPOINTMENT 1 04/14/2024 documented in this encounter Care Teams Paper Core Machine Operator Relationship Specialty Start Date End Date Julio César Briseno MD PCP - General 10/01/16 Eren Cr MD Referring Physician Medical Oncology 11/25/18 Yohana Bowen MD Radiation Oncologist Radiation Oncology 11/25/18 Aeljo Mi MD [address] [place] [address] Referring Physician Nephrology 03/07/23 documented as of this encounter
--- OUTSIDE RECORDS SUMMARY | 2024-06-26 01:52 | XMS_ITS | Encounter Summary ---
Author Organization [facility] Address [address] [place] [address] Phone Care Team Providers Care Splicing Technician Name Role Phone Julio César Briseno MD Primary Care Provider Eren Cr MD Unavailable [phone] Yohana Bowen MD Unavailable Alejo Mi MD Unavailable [phone] Encounter Details Date Type Department Care Team (Late st Contact Info) Description 03/17/2024 Orders Only [facility] Oncology [address] [place] [address] Eren Cr MD [address] [place] [address] Social History Tobacco Use Types Packs/Day Years [...] on file Legal Sex Female 2:41 PM SINGER BACK TENDER Gender Identity Not on file Sexual Orientation Straight 02/19/2021 9: 29 AM CDT Occupation Industry Job Start Date Job End Date retired Not on file Not on file Not on file documented as of this encounter Plan of Treatment Not on file documented as of this encounter Visit Diagnoses Not on filedocumented in this encounter Care Teams Splicing Technician Relationship Specialty Start Date End Date Julio César Briseno MD PCP - General 10/01/16 Eren Cr MD Referring Physician Medical Oncology 11/25/18 Yohana Bowen MD Radiation Oncologist Radiation Oncology 11/25/18 Alejo Mi MD [address] [place] [address] Referring Physician Nephrology 03/07/23 documented as of this encounter
--- OUTSIDE RECORDS SUMMARY | 2024-06-26 01:52 | XMS_ITS | Encounter Summary ---
Author Organization [facility] Address [address] [place] [address] Phone Care Team Providers Care Waste Recycler Name Role Phone Julio César Briseno MD Primary Care Provider Eren Cr MD Unavailable [phone] Yohana Bowen MD Unavailable Alejo Mi MD Unavailable [phone] Encounter Details Date Type Department Care Team (Late st Contact Info) Description 03/17/2024 Orders Only [facility] Oncology [address] [place] [address] Eren Cr MD [address] [place] [address] Social History Tobacco Use Types Packs/Day Years [...] on file Legal Sex Female 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 Gender Identity Not on file Sexual Orientation Straight 02/19/2021 9: 29 AM CDT Occupation Industry Job Start Date Job End Date retired Not on file Not on file Not on file documented as of this encounter Plan of Treatment Not on file documented as of this encounter Visit Diagnoses Not on filedocumented in this encounter Care Teams Waste Recycler Relationship Specialty Start Date End Date Julio César Briseno MD PCP - General 10/01/16 Eren Cr MD Referring Physician Medical Oncology 11/25/18 Yohana Bowen MD Radiation Oncologist Radiation Oncology 11/25/18 Alejo Mi MD [address] [place] [address] Referring Physician Nephrology 03/07/23 documented as of this encounter
--- OUTSIDE RECORDS SUMMARY | 2024-06-26 01:52 | XMS_ITS | Encounter Summary ---
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) Eren Cr MD [address] [place] [address] Phone: tel: fax: Yohana Bowen MD [id number] [place] [address] Phone: tel: fax: Referral ID Status Reason Start Date Expiration Date V isits Requested Visits Authorized [id number] Closed Specialty Services Required 05/12/2024 06/11/2025 1 1 Encounter Details Date Type Department Care Team (Late st Contact Info) Description 05/26/2024 9:00 AM ROTARY CUTTER FEEDER Consult [facility] Radiation Oncology at [facility] [place] [address] [place] [address] Yohana Bowen MD [address] [facility] [address] [place] [address] Neuro-endocrine carcinoma (HCC); Malignant neoplasm metastatic to [...] file Legal Sex Female 2:41 PM ROTARY CUTTER FEEDER Gender Identity Not on file Sexual Orientation Straight 02/19/2021 9: 29 AM CDT Occupation Industry Job Start Date Job End Date retired Not on file Not on file Not on file documented as of this encounter Last Filed Vital Signs Vital Sign Reading Time Taken Comments Blood Pressure 130/81 05/26/2024 8:53 AM ROTARY CUTTER FEEDER Pulse 70 05/26/2024 8:53 AM ROTARY CUTTER FEEDER Temperature - - Respiratory Rate - - Oxygen Saturation 99% 05/26/2024 8:53 AM ROTARY CUTTER FEEDER Inhaled Oxygen Concentration - - Weight 76.2 kg (168 lb) 05/26/2024 8:53 AM ROTARY CUTTER FEEDER Height 160 cm (5' 3 ) 05/26/2024 8:53 AM ROTARY CUTTER FEEDER Body Mass Index 29.76 05/26/2024 8:53 AM ROTARY CUTTER FEEDER documented in this encounter Consult Notes * Dima Modi MD - 05/26/2024 9:00 AM CST RADIATION ONCOLOGY CONSULTATION NOTE LOCATION: [facility] PATIENT NAME: La Chung DATE OF : [...] time, she also underwent right colectomy in [facility] OR by Dr. Greyson Reeves. Biopsy revealed [...] Current Outpatient Medications: 0.9 % sodium chloride ([facility] sodium chloride 0.9%) injection, Infuse 10 [...] mg capsule, Take 1 tablet by mouth barrer and tacker before breakfast (Patient not taking: Reported on [...] Reported on 01/24/2024), Disp: , Rfl: coenzyme I99-cnsvcar E 100-5 mg-unit capsule, Take 1 tablet by mouth barrer and tacker before breakfast(Patient not taking: Reported on 12/24/2023), [...] (ATROVENT) 42 mcg (0.06 %) nasal spray, [place] 1 spray twice a day by nasal route for 13days., Disp: , Rfl: levothyroxine (SYNTHROID) 100 mcg tablet, Take 1 tablet (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) by mouth barrer and tacker before breakfast, Disp: 90 tablet, Rfl: 3 [...] Not on file The patient lives in [place], a [address] from [facility] and about [place]from [facility]. FAMILY HISTORY: Cancer-related family history includes Breast [...] hepatic segment 6 lesion on series 3 now measures 2.4 cm, presumably 1.8 cm. [...] the patient's vaginal cuff on series 3 [id number] is not significantly changed compared to the [...] of care or consult note), please use [employer] to page/call the resident directly. Alternatively, please call the radiation oncology front desk lead at [phone]. Saturday-Saturday 5pm-7am or on weekends Please reach the on-call radiation oncology service through the [facility] tank farm operator line ([phone]). Cosigned by Yohana Bowen MD at 06/09/2024 11:30 AM ROTARY CUTTER FEEDER RY CUTTER FEEDER RY CUTTER FEEDER Associated attestation - Yohana Bowen MD - 06/09/2024 11:30 AM ROTARY CUTTER FEEDER I have seen and examined the patient. [...] 2023 documented in this encounter Care Teams Pipe Layer Helper Relationship Specialty Start Date End Date Julio César Briseno MD PCP - General 10/01/16 Eren Cr MD Referring Physician Medical Oncology 11/25/18 Yohana Bowen MD Radiation Oncologist Radiation Oncology 11/25/18 Alejo Mi MD [address] [address] Referring Physician Nephrology 03/07/23 documented as of this encounter
--- OUTSIDE RECORDS SUMMARY | 2024-06-26 01:52 | XMS_ITS | Encounter Summary ---
Author Organization [facility] Address [address] [place] [address] Phone Care Team Providers Care Chicken Vaccinator Name Role Phone Julio César Briseno MD Primary Care Provider Eren Cr MD Unavailable [phone] Yohana Bowen MD Unavailable Alejo Mi MD Unavailable [phone] Encounter Details Date Type Department Care Team (Late st Contact Info) Description 05/12/2024 Orders Only [facility] Oncology [address] [place] [address] Eren Cr MD [address] [place] [address] Social History Tobacco Use Types Packs/Day Years [...] on file 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 Gender Identity Not on file Sexual Orientation Straight 02/19/2021 9: 29 AM CDT Occupation Industry Job Start Date Job End Date retired Not on file Not on file Not on file documented as of this encounter Plan of Treatment Not on file documented as of this encounter Visit Diagnoses Not on filedocumented in this encounter Care Teams Chicken Vaccinator Relationship Specialty Start Date End Date Julio César Briseno MD PCP - General 10/01/16 Eren Cr MD Referring Physician Medical Oncology 11/25/18 Yohana Bowen MD Radiation Oncologist Radiation Oncology 11/25/18 Alejo Mi MD [address] [place] [address] Referring Physician Nephrology 03/07/23 documented as of this encounter
--- OUTSIDE RECORDS SUMMARY | 2024-06-26 01:52 | XMS_ITS | Encounter Summary ---
Author Organization [facility] Address [address] [place] [address] Phone Care Team Providers Care Automotive Porter Name Role Phone Julio César Briseno MD Primary Care Provider [phone] Eren Cr MD Unavailable [phone] Yohana Bowen MD Unavailable Alejo Mi MD Unavailable [phone] Encounter Details Date Type Department Care Team (Late st Contact Info) Description 05/22/2024 Orders Only [facility] Oncology [address] [place] [address] Eren Cr MD [address] [place] [address] Neuroendocrine carcinoma (HCC) (Primary Dx); Malignant neoplasm [...] on file Legal Sex Female 2:41 PM CHEMIST BIOLOGICAL Gender Identity Not on file Sexual Orientation Straight 02/19/2021 9: 29 AM CDT Occupation Industry Job Start Date Job End Date retired Not on file Not on file Not on file documented as of this encounter Plan of Treatment Not on file documented as of this encounter Results * (ABNORMAL) Chromogranin A (06/09/2024 1:27 PM CHEMIST BIOLOGICAL) Chromogranin A 4537(H) <93 ng/mL [place] ref Lab Comment: Impaired renal or hepatic function or treatment with proton pump inhibitors may result in artifactual elevations of Chromogranin A. ADDITIONAL INFORMATION The testing method is a homogeneous time-resolved immunofluorescent assay manufactured by [employer] and performed on the [employer] Kryptor Compact Plus. ? Values obtained with [...] Test Performed by: [facility] [address] [place] [address] Medical Translator: Carley Tony Ph.D.; CLIA# [id number] Blood 06/09/2024 1:27 PM CHEMIST BIOLOGICAL 06/09/2024 3:08 PM CHEMIST BIOLOGICAL Eren Cr MD LAB BLOOD ORDERABLES Final Re sult Performing Organization Address City/[facility] Co de Phone Number [facility] [place] [address] [place] ref Lab * (ABNORMAL) Vitamin D 25 hydroxy (06/09/2024 1:27 PM CHEMIST BIOLOGICAL) Pathologist [facility] Vitamin D 25-OH 16(L) 30 - 80 ng/mL Blood 06/09/2024 1:27 PM CHEMIST BIOLOGICAL 06/09/2024 1:40 PM CHEMIST BIOLOGICAL Eren Cr MD LAB BLOOD ORDERABLES Final Re sult Performing Organization Address [facility] de Phone Number [facility] [place] [address] * Phosphorus (06/09/2024 1:27 PM CHEMIST BIOLOGICAL) Pathologist [facility] Phosphorus, pl 3.1 2.3 - 4.5 mg/dL Blood 06/09/2024 1:27 PM CHEMIST BIOLOGICAL 06/09/2024 1:40 PM CHEMIST BIOLOGICAL Eren Cr MD LAB BLOOD ORDERABLES Final Re sult Performing Organization Address [facility] Co de Phone Number [facility] [place] [address] * (ABNORMAL) Lipid panel (06/09/2024 1:27 PM CHEMIST BIOLOGICAL) [facility] Cholesterol 135 30 - 199 mg/dL [...] on 2018. LDL, calculated 68 <=129 mg/dL [facility] Comment: Interpretive Data [...] on 2024. 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
--- OUTSIDE RECORDS SUMMARY | 2024-06-26 01:52 | XMS_ITS | Encounter Summary ---
Author Organization [facility] Address [address] [place] [address] Phone Care Team Providers Care Electrician Station Assistant Name Role Phone Julio César Briseno MD Primary Care Provider Eren Cr MD Unavailable [phone] Yohana Bowen MD Unavailable Alejo Mi MD Unavailable [phone] Encounter Details Date Type Department Care Team (Late st Contact Info) Description 05/13/2024 Orders Only [facility] Oncology [address] [place] [address] Eren Cr MD [address] [place] [address] Neuroendocrine carcinoma (HCC) (Primary Dx); Malignant neoplasm [...] on file 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
--- OUTSIDE RECORDS SUMMARY | 2024-06-26 01:52 | XMS_ITS | Encounter Summary ---
Author Organization [facility] Address [address] [place] [address] Phone Care Team Providers Care Puller Machine Name Role Phone Julio César Briseno MD Primary Care Provider [phone] Eren Cr MD Unavailable [phone] Yohana Bowen MD Unavailable Alejo Mi MD Unavailable [phone] Reason for Visit * Consultation (Urgent) - Closed Specialty Diagnoses / Procedures Referred By Contact Referred To Contact Interventional Radiology Diagnoses 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) Eren Cr MD [address] [place] [address] Phone: tel:[phone] fax:[phone] Mikey Meraz MD [address] [facility] [address] [place] [address] Phone: tel: fax: Referral ID Status Reason Start Date Expiration Date V isits Requested Visits Authorized [id number] Closed Specialty Services Required 05/12/2024 06/11/2025 1 1 Encounter Details Date Type Department Care Team (Late st Contact Info) Description 05/21/2024 9:00 AM RESEARCH TECHNOLOGIST Office Visit [facility] Radiology, Interventional Radiology [address] [facility] [address] [place] [address] Mikey Meraz MD [address] [facility] [address] [place] [address] Stage 3b chronic kidney disease (HCC) (Primary [...] file Legal Sex Female 2:41 PM RESEARCH TECHNOLOGIST Gender Identity Not on file Sexual [...] 74.8 kg (165 lb) 05/21/2024 8:58 AM RESEARCH TECHNOLOGIST Height 160 cm (5' 3 ) 05/21/2024 8:58 AM RESEARCH TECHNOLOGIST Body Mass Index 29.23 05/21/2024 8:58 AM RESEARCH TECHNOLOGIST documented in this encounter Progress Notes * [...] Current Outpatient Medications: 0.9 % sodium chloride ([facility] sodium chloride 0.9%) injection 0.9 % sodium chloride (sodium chloride 0.9%) 0.9% infusion amLODIPine (NORVASC) 5 mg tablet amoxicillin 500 mg capsule ascorbic acid, vitamin C, 500 mg capsule cholecalciferol (VITAMIN D-3) 1,000 unit clotrimazole-betamethasone (LOTRISONE) cream coenzyme [id number] E 100-5 mg-unit capsule denosumab (Xgeva) 120 [...] Mikey Meraz MD at 05/21/2024 12:56 PM RESEARCH TECHNOLOGIST ARCH TECHNOLOGIST ARCH TECHNOLOGIST Associated attestation - Mikey Meraz MD - 05/21/2024 12:56 PM RESEARCH TECHNOLOGIST Images from the original note were not [...] separately reportable services. Maria Isabel Meraz MD kelp or seagrass gatherer and Surgery Interventional Radiology Section [facility] documented in this [...] 05/21/2024 documented in this encounter Care Teams Puller Machine Relationship Specialty Start Date End Date Julio César Briseno MD PCP - General 10/01/16 Eren Cr MD Referring Physician Medical Oncology 11/25/18 Yohana Bowen MD Radiation Oncologist Radiation Oncology 11/25/18 Alejo Mi MD [address] [address] Referring Physician Nephrology 03/07/23 documented as of this encounter
--- OUTSIDE RECORDS SUMMARY | 2024-06-26 01:52 | XMS_ITS | Encounter Summary ---
Author Organization 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) Procedures [place] OCTREOTIDE INJECTION, DEPOT Octreotide 28 Day Cycles - Carcinoid Eren Cr MD [address] [facility] [address] [place] [address] Phone: tel: fax: [address] [address] Phone: tel: fax: Referral ID Status Reason Start Date Expiration Date V isits Requested Visits Authorized [id number] Authorized 11/28/2017 02/05/2025 1 150 Encounter Details Date Type Department Care Team (Late st Contact Info) Description 06/09/2024 2:15 PM TRANSIT MANAGER Infusion [facility] - Infusion [address] [facility] [address] [place] [address] 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 [...] file Legal Sex Female 2:41 PM TRANSIT MANAGER Gender Identity Not on file Sexual Orientation Straight 02/19/2021 9: 29 AM CDT Occupation Industry Job Start Date Job End Date retired Not on file Not on file Not on file documented as of this encounter Nursing Notes * Corine Zamorano RN - 06/09/2024 2:15 PM CST Oncology Nursing Note [facility] - INFUSION La Chung is a 73 [...] Ambulatory Accompanied by: Self Discharged To: Home SIT MANAGER documented in this encounter Plan of [...] to liver (HCC) Given 06/09/2024 2:56 PM TRANSIT MANAGER 30 mg Left Dorsogluteal/Butt ock documented in this encounter Orders Medications Ordered That Brett ht Not Have Been Administered Count Last Ordered Date First Ordered Date denosumab (XGEVA) subcutaneo us syringe 120 mg 1 06/09/2024 octreotide LAR (SandoSTATIN LAR) extended release intramuscular injection 30 mg 1 06/09/2024 Nursing Count Last Ordered Date First Orde red Date ONCBCN NURSING COMMUNICATION 120851 1 06/09 ONCBCN NURSING COMMUNICATION [id number] 1 1 08/10/2023 PHYSICIAN COMMUNICATION ORDER 1 06/09/2024 Appointment Requests Count Last Ordered Date Fi rst Ordered Date ONCBCN INJECTION APPOINTMENT REQUEST 1 09/2023 documented in this encounter Care Teams Recenterer Relationship Specialty Start Date End Date Julio César Briseno MD PCP - General 10/01/16 Eren Cr MD Referring Physician Medical Oncology 11/25/18 Yohana Bowen MD Radiation Oncologist Radiation Oncology 11/25/18 Alejo Mi MD [address] [address] Referring Physician Nephrology 03/07/23 documented as of this encounter
--- OUTSIDE RECORDS SUMMARY | 2024-06-26 01:52 | XMS_ITS | Encounter Summary ---
Author Organization [facility] Address [address] [place] [address] Phone Care Team Providers Care Homebound Teacher Name Role Phone Julio César Briseno MD Primary Care Provider Eren Cr MD Unavailable [phone] Yohana Bowen MD Unavailable Alejo Mi MD Unavailable [phone] Encounter Details Date Type Department Care Team (Late st Contact Info) Description 03/17/2024 Orders Only [facility] Oncology [address] [place] [address] Eren Cr MD [address] [place] [address] Social History Tobacco Use Types Packs/Day Years [...] file Legal Sex Female 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 Gender Identity Not on file Sexual Orientation Straight 02/19/2021 9: 29 AM CDT Occupation Industry Job Start Date Job End Date retired Not on file Not on file Not on file documented as of this encounter Plan of Treatment Not on file documented as of this encounter Visit Diagnoses Not on filedocumented in this encounter Care Teams Homebound Teacher Relationship Specialty Start Date End Date Julio César Briseno MD PCP - General 10/01/16 Eren Cr MD Referring Physician Medical Oncology 11/25/18 Yohana Bowen MD Radiation Oncologist Radiation Oncology 11/25/18 Alejo Mi MD [address] [place] [address] Referring Physician Nephrology 03/07/23 documented as of this encounter
--- OUTSIDE RECORDS SUMMARY | 2024-06-26 01:52 | XMS_ITS | Encounter Summary ---
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 Left voicemail message for patient with DC's direct office number requesting return call. CREW SUPERVISOR documented in this encounter Plan of Treatment Not on file documented as of this encounter Visit Diagnoses Not on filedocumented in this encounter Care Teams Dental Manager Relationship Specialty Start Date End Date Julio César Briseno MD PCP - General 10/01/16 Eren Cr MD Referring Physician Medical Oncology 11/25/18 Yohana Bowen MD Radiation Oncologist Radiation Oncology 11/25/18 Alejo Mi MD [address] [address] Referring Physician Nephrology 03/07/23 documented as of this encounter
--- OUTSIDE RECORDS SUMMARY | 2024-06-26 01:52 | XMS_ITS | Encounter Summary ---
Author Organization [facility] Address [address] [place] [address] Phone Care Team Providers Care Commercial Drone Software Developer Name Role Phone Julio César Briseno MD Primary Care Provider [phone] Eren Cr MD Unavailable [phone] Yohana Bowen MD Unavailable Alejo Mi MD Unavailable [phone] Encounter Details Date Type Department Care Team (Late st Contact Info) Description 06/09/2024 Orders Only [facility] Oncology [address] [facility] [address] [place] [address] Claude Browning MD [address] [facility] [address] [place] [address] Neuroendocrine carcinoma (HCC) (Primary Dx) [...] on file Legal Sex Female 2:41 PM COOLER SERVICE SUPERVISOR Gender Identity Not on file Sexual Orientation Straight 02/19/2021 9: 29 AM CDT Occupation Industry Job Start Date Job End Date retired Not on file Not on file Not on file documented as of this encounter Plan of Treatment Not on file documented as of this encounter Results * (ABNORMAL) Comprehensive metabolic panel (06/09/2024 1:27 PM COOLER SERVICE SUPERVISOR) Sodium 140 135 - 145 mmol/L Potassium, pl 4.1 3.3 - 4.9 mmol/L [facility] Chloride 109 97 - 110 mmol/L [facility] CO2 24 22 - 32 mmol/L [facility] Anion gap 7 2 - 15 mmol/L [facility] BUN 20 6 - 25 mg/dL [facility] Creatinine 1.73(H) 0.60 - 1.10 mg/dL [facility] Glucose 90 70 - 199 mg/dL [facility] [...] Calcium 9.6 8.5 - 10.3 mg/dL [facility] Bilirubin, total 0.6 0.1 - 1.2 mg/dL [facility] Protein, pl 6.4(L) 6.5 - 8.5 g/dL [facility] Albumin 3.9 3.5 - 5.0 g/dL [facility] Alk phos 79 40 - 130 Units/L [facility] ALT 9 7 - 45 Units/L [facility] AST 28 10 - 45 Units/L [facility] Blood 06/09/2024 1:27 PM COOLER SERVICE SUPERVISOR 06/09/2024 1:40 PM COOLER SERVICE SUPERVISOR Claude Browning MD LAB BLOOD ORDERABLES Mel l Result [facility] Department [place] [address] documented in this encounter Visit Diagnoses Diagnosis Neuroendocrine carcinoma (HCC)- Primary Other malignant neoplasm of unspecified site documented in this encounter Care Teams Commercial Drone Software Developer Relationship Specialty Start Date End Date Julio César Briseno MD PCP - General 10/01/16 Eren Cr MD Referring Physician Medical Oncology 11/25/18 Yohana Bowen MD Radiation Oncologist Radiation Oncology 11/25/18 Alejo Mi MD [address] [facility] [address] [place] [address] Referring Physician Nephrology 03/07/23 documented as of this encounter
--- OUTSIDE RECORDS SUMMARY | 2024-06-26 01:52 | XMS_ITS | Encounter Summary ---
Author Organization [facility] of [facility] Address [address] [place] [address] Phone Care Team Providers Care Feed Mixer Helper Name Role Phone Julio César Briseno MD Primary Care Provider Eren Cr MD Unavailable [phone] Yohana Bowen MD Unavailable Alejo Mi MD Unavailable [phone] Reason for Visit * Reason Onset Date Comments Vomiting 06/13/2024 Encounter Details Date Type Department Care Team (Late st Contact Info) Description 06/13/2024 Telephone [facility] Bone Marrow Transplant [facility] Floor 6 [place] [address] Sunshine George RN Vomiting Social [...] file Legal Sex Female 2:41 PM FUR FARMER Gender Identity Not on file Sexual Orientation Straight 02/19/2021 9: 29 AM CDT Occupation Industry Job Start Date Job End Date retired Not on file Not on file Not on file documented as of this encounter Miscellaneous Notes * Telephone Encounter - Sunshine George RN - 06/13/2024 2:49 PM FUR FARMER Oncology After-Hours Outpatient Call Patient: La Chung [...] of infection. Recommendation: [facility] to go to [facility] eval at 430pm. Shanell verbalized understanding of where to go and agreeable to plan of care. Primary oncologist team updated via [employer]. Sunshine George RN FARMER documented in this encounter Plan of Treatment Not on file documented as of this encounter Visit Diagnoses Not on filedocumented in this encounter Additional Health Concerns Infection Onset Date Last Indicated Resolved Time COVID: Suspected 06/13/2024 06/13/2024 06/13/2024 6:39 PM FUR FARMER documented as of this encounter Care Teams Feed Mixer Helper Relationship Specialty Start Date End Date Julio César Briseno MD PCP - General 10/01/16 Eren Cr MD Referring Physician Medical Oncology 11/25/18 Yohana Bowen MD Radiation Oncologist Radiation Oncology 11/25/18 Alejo Mi MD [address] [place] [address] Referring Physician Nephrology 03/07/23 documented as of this encounter
--- OUTSIDE RECORDS SUMMARY | 2024-06-26 01:52 | XMS_ITS | Encounter Summary ---
Author Organization [facility] Address [address] [place] [address] Phone Care Team Providers Care Director Of Catering Name Role Phone Julio César Briseno MD Primary Care Provider Eren Cr MD Unavailable [phone] Yohana Bowen MD Unavailable Alejo Mi MD Unavailable [phone] Encounter Details Date Type Department Care Team (Late st Contact Info) Description 06/10/2024 Orders Only [facility] Oncology [address] [place] [address] Eren Cr MD [address] [place] [address] Neuroendocrine carcinoma (HCC) (Primary Dx); Malignant neoplasm [...] Legal Sex Female 2:41 PM RESEARCH 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
--- OUTSIDE RECORDS SUMMARY | 2024-06-26 01:52 | XMS_ITS | Encounter Summary ---
Author Organization [facility] Address [address] [place] [address] Phone Care Team Providers Care Lead Accountant Name Role Phone Julio César Briseno MD Primary Care Provider Eren Cr MD Unavailable [phone] Yohana Bowen MD Unavailable Alejo Mi MD Unavailable [phone] Encounter Details Date Type Department Care Team (Late st Contact Info) Description 05/12/2024 Orders Only [facility] Oncology [address] [place] [address] Eren Cr MD [address] [place] [address] Social History Tobacco Use Types Packs/Day Years [...] filedocumented in this encounter Care Teams Lead Accountant Relationship Specialty Start Date End Date Julio César Briseno MD PCP - General 10/01/16 Eren Cr MD Referring Physician Medical Oncology 11/25/18 Yohana Bowen MD Radiation Oncologist Radiation Oncology 11/25/18 Alejo Mi MD [address] [place] [address] Referring Physician Nephrology 03/07/23 documented as of this encounter
--- OUTSIDE RECORDS SUMMARY | 2024-06-26 01:52 | XMS_ITS | Encounter Summary ---
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) Procedures [place] OCTREOTIDE INJECTION, DEPOT Octreotide 28 Day Cycles - Carcinoid Eren Cr MD [address] [place] [address] Phone: tel: fax: [address] [address] Phone: tel: fax: Referral ID Status Reason Start Date Expiration Date V isits Requested Visits Authorized [id number] Authorized 11/28/2017 02/05/2025 1 150 Encounter Details Date Type Department Care Team (Late st Contact Info) Description 03/17/2024 12:30 PM CDT Infusion [facility] [address] [address] 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 [...] on file Legal Sex Female 2:41 PM EP TECHNOLOGIST Gender Identity Not on file Sexual [...] 03/17/2024 12:30 PM CDT Oncology Nursing Note [facility] La Chung is a 73 [...] First Orde red Date ONCBCN NURSING COMMUNICATION [id number] 03/17 ONCBCN NURSING COMMUNICATION [id number] 1 0 03/17/2024 PHYSICIAN COMMUNICATION ORDER 1 03/17/2024 Appointment Requests Count Last Ordered Date Fi rst Ordered Date ONCBCN INJECTION APPOINTMENT REQUEST 1 03/08 documented in this encounter Care Teams Coil Placer Relationship Specialty Start Date End Date Julio César Briseno MD PCP - General 10/01/16 Eren Cr MD Referring Physician Medical Oncology 11/25/18 Yohana Bowen MD Radiation Oncologist Radiation Oncology 11/25/18 Alejo Mi MD [address] [place] [address] Referring Physician Nephrology 03/07/23 documented as of this encounter
--- OUTSIDE RECORDS SUMMARY | 2024-06-26 01:52 | XMS_ITS | Encounter Summary ---
Author Organization [facility] Address [address] [place] [address] Phone Care Team Providers Care Dean Name Role Phone Julio César Briseno MD Primary Care Provider Eren Cr MD Unavailable [phone] Yohana Bowen MD Unavailable Alejo Mi MD Unavailable [phone] Encounter Details Date Type Department Care Team (Late st Contact Info) Description 05/13/2024 Orders Only [facility] Oncology [address] [place] [address] Eren Cr MD [address] [place] [address] Neuro-endocrine carcinoma (HCC) (Primary Dx) Social History [...] file Legal Sex Female 2:41 PM ROLL WEIGHER Gender Identity Not on file Sexual Orientation [...] Discontinue Reason Start Date End Da te [facility] cabozantinib/placebo (/[id number]) 20 mg tabletIndications:canc er study Take 1 tablet (20 mg total) by mouth nightly Take on an empty stomach (no food for 2 hours before and 1 hour after each dose).?? Avoid Jas's Wort, grapefruit products and [place] oranges while on treatment. placed on hold 09/26/22 for covid Alternate therapy 01/29/2022 05/13/2024 documented as of this encounter Care Teams Dean Relationship Specialty Start Date End Date Julio César Briseno MD PCP - General 10/01/16 Eren Cr MD Referring Physician Medical Oncology 11/25/18 Yohana Bowen MD Radiation Oncologist Radiation Oncology 11/25/18 Alejo Mi MD [address] [place] [address] Referring Physician Nephrology 03/07/23 documented as of this encounter
--- OUTSIDE RECORDS SUMMARY | 2024-06-26 01:52 | XMS_ITS | Encounter Summary ---
Author Organization [facility] Healthcare Address [address] [place] [address] Care Team Providers Care Carbon Blocks Press Operator Name Role Phone Julio César Briseno MD Primary Care Provider [phone] Eren Cr MD Unavailable [phone] Yohana Bowen MD Unavailable Alejo Mi MD Unavailable [phone] Reason for Visit * Reason Onset Date Comments CABOMETYX PA 05/14/2024 Encounter Details Date Type Department Care Team (Late st Contact Info) Description 05/14/2024 Documentation [facility] [place] [facility] [address] [facility] [address] [place] [address] Idania Pat CMA CABOMETYX PA Social History [...] on file Legal Sex Female 2:41 PM CHANGE ADVISOR Gender Identity Not on file Sexual Orientation Straight 02/19/2021 9: 29 AM CDT Occupation Industry Job Start Date Job End Date retired Not on file Not on file Not on file documented as of this encounter Progress Notes * Idania Pat, [facility] - 05/14/2024 2:58 PM CST ORAL ONCOLOGY MEDICATION OVERVIEW Medication(s) applied to: [facility] PHARMACY ASSISTANT PROFESSOR OF PHILOSOPHY: [employer] ID#: [id number] BIN: [id number] PCN: [facility]: [facility] CUSTOMER SERVICE #: FAX#: INSURANCE PRIOR AUTHORIZATION STATUS: APPROVED AUTH#: N/A EFFECTIVE: 05/14/2025 EXPIRES: 07/07/2099 NOTES: [facility] [id number] FINANCIAL ASSISTANCE Co-payment Amount: $[id number] Patient Screening [...] for pt Dx at this time PAP (Poultry Barn Manager Free Drug) application Obtained?: DENIED- OVER INCOME Foundation/Organization: NEXT STEPS: [PA APPROVED, PAP DENIED DUE TO INCOME] PHARMACY INFORMATION: CAN THIS DRUG BE FILLED AT [facility] [place] [facility]?: YES CAN THIS DRUG BE FILLED AT [facility] ([facility]): YES DOES THIS DRUG REQUIRE THE USE OF A OUTSIDE SPECIALTY PHARMACY?: NO DISPENSING PHARMACY NAME: [facility] PHONE#: [phone] PHARMACY CLAIM BENEFIT INVESTIGATION AND CO-PAYMENT SUMMARY [...] PAP APPLICATION, Completed by: Idania Pat CMA GE ADVISOR GE ADVISOR GE ADVISOR GE ADVISOR documented in this encounter Plan of Treatment Not on file documented as of this encounter Visit Diagnoses Not on filedocumented in this encounter Care Teams Carbon Blocks Press Operator Relationship Specialty Start Date End Date Julio César Briseno MD PCP - General 10/01/16 Eren Cr MD Referring Physician Medical Oncology 11/25/18 Yohana Bowen MD Radiation Oncologist Radiation Oncology 11/25/18 Alejo Mi MD [address] [address] Referring Physician Nephrology 03/07/23 documented as of this encounter
--- OUTSIDE RECORDS SUMMARY | 2024-06-26 01:52 | XMS_ITS | Encounter Summary ---
Author Organization [facility] Healthcare Address [address] [place] [address] Care Team Providers Care Gore Maker Name Role Phone Julio César Briseno MD Primary Care Provider [phone] Eren Cr MD Unavailable [phone] Yohana Bowen MD Unavailable Alejo Mi MD Unavailable [phone] Reason for Visit * Episode Based Medications (Routine) - Closed Specialty Diagnoses / Procedures Referred By Evelyne bowman Referred To Contact Diagnoses Neuro-endocrine carcinoma (HCC) Procedures study [id number] phase III cabozantinib Eren Cr MD [address] [place] [address] Phone: tel: fax: [facility] [address] [facility] Advanced Medicine 7th [place] [address] Phone: tel: Referral ID Status Reason Start Date Expiration Date Visits Re quested Visits Authorized [id number] Closed 06/21/2021 06/26/2024 1 99 Encounter Details Date Type Department Care Team (Latest Contact Info) Description 04/14/2024 12:15 PM CDT [facility] Pick-Up/CTRU Magician Helper [facility] [address] Neuro-endocrine carcinoma (HCC) (Primary Dx) Social History [...] file Legal Sex Female 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 Gender Identity Not on file Sexual [...] Ordered Date First Ordered Date [facility] cabozantinib (/[id number]) tablet 20 mg 1 04/14/2024 Nursing Count Last Ordered Date First Orde red Date ONCBCN STUDY COMMUNICATION 1 1 04/14/2024 ONCBCN TREATMENT PARAMETERS 1 1 04/14/2024 RESEARCH STUDY CLARIFICATION ORDER 1 2023 Appointment Requests Count Last Ordered Date Fi rst Ordered Date ONCBCN TAKE HOME STUDY DRUG APPT 1 04/14/20 24 documented in this encounter Care Teams Gore Maker Relationship Specialty Start Date End Date Julio César Briseno MD PCP - General 10/01/16 Eren Cr MD Referring Physician Medical Oncology 11/25/18 Yohana Bowen MD Radiation Oncologist Radiation Oncology 11/25/18 Alejo Mi MD [address] [place] [address] Referring Physician Nephrology 03/07/23 documented as of this encounter
--- OUTSIDE RECORDS SUMMARY | 2024-06-26 01:52 | XMS_ITS | Encounter Summary ---
Author Organization [facility] Healthcare Address [address] [place] [address] Care Team Providers Care Nuclear Medicine Specialist Name Role Phone Julio César Briseno MD Primary Care Provider [phone] Eren Cr MD Unavailable [phone] Yohana Bowen MD Unavailable Alejo Mi MD Unavailable [phone] Encounter Details Date Type Department Care Team (Late st Contact Info) Description 05/15/2024 Telephone [facility] Radiation Oncology at [facility] [address] [place] [address] Yohana Bowen MD [address] [facility] [address] [place] [address] Social History Tobacco Use Types [...] on file Legal Sex Female 2: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 No DRIVER documented in this encounter Plan of Treatment Not on file documented as of this encounter Visit Diagnoses Not on filedocumented in this encounter Care Teams Nuclear Medicine Specialist Relationship Specialty Start Date End Date Julio César Briseno MD PCP - General 10/01/16 Eren Cr MD Referring Physician Medical Oncology 11/25/18 Yohana Bowen MD Radiation Oncologist Radiation Oncology 11/25/18 Alejo Mi MD [address] [place] [address] Referring Physician Nephrology 03/07/23 documented as of this encounter
--- OUTSIDE RECORDS SUMMARY | 2024-06-26 01:52 | XMS_ITS | Encounter Summary ---
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 Mikey Meraz Referring Provider: Dr. Eren Cr Referring Nurse Coordinator: Sola Heredia Insurance carrier verified? Yes Appt info letter sent: Yes- via [employer] ALLERGIES: Allergies Allergen Reactions Morphine Blisters and [...] NPO after midnight and will have a stock driver. She verbalized understanding of instructions and will call [facility] if needed. She does have [facility]'s direct office number. A ENGINEER documented in this encounter Plan of Treatment Not on file documented as of this encounter Visit Diagnoses Not on filedocumented in this encounter Care Teams General Freight Agent Relationship Specialty Start Date End Date Julio César Briseno MD PCP - General 10/01/16 Eren Cr MD Referring Physician Medical Oncology 11/25/18 Yohana Bowen MD Radiation Oncologist Radiation Oncology 11/25/18 Alejo Mi MD [address] [address] Referring Physician Nephrology 03/07/23 documented as of this encounter
--- OUTSIDE RECORDS SUMMARY | 2024-06-26 01:52 | XMS_ITS | Encounter Summary ---
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) Procedures [place] OCTREOTIDE INJECTION, DEPOT Octreotide 28 Day Cycles - Carcinoid Eren Cr MD [address] [place] [address] Phone: tel: fax: [address] [address] Phone: tel: fax: Referral ID Status Reason Start Date Expiration Date V isits Requested Visits Authorized [id number] Authorized 11/28/2017 02/05/2025 1 150 Encounter Details Date Type Department Care Team (Late st Contact Info) Description 05/12/2024 11:45 AM COAL CHEMIST [facility] [address] [place] [address] 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 [...] on file Legal Sex Female 2:41 PM COAL CHEMIST Gender Identity Not on file Sexual Orientation Straight 02/19/2021 9: 29 AM CDT Occupation Industry Job Start Date Job End Date retired Not on file Not on file Not on file documented as of this encounter Nursing Notes * Ada Felming RN - 05/12/2024 11:45 AM CST Oncology Nursing Note [facility] La Chung is a 73 y.o. female [...] by: Self and Family Discharged To: Home CHEMIST documented in this encounter Plan of Treatment [...] bone (CMS/HCC) (HCC) Given 05/12/2024 12:49 PM COAL CHEMIST 120 mg Right Lower Abdomen octreotide LAR (SandoSTATIN LAR) extended release intramuscular injection 30 mg 30 mg, intramuscular, Once, On Sat05/12/24 at 1300, For 1 dose, Refrigerate. For IM intragluteal administration only- alternate gluteal sites. 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) Given 05/12/2024 12:53 PM COAL CHEMIST 30 mg Right Dorsogluteal/Butto ck documented in this encounter Orders Medications Ordered That Brett ht Not Have Been Administered Count Last Ordered Date First Ordered Date ondansetron (ZOFRAN) injection 8 mg 1 05/12 Nursing Count Last Ordered Date First Orde red Date ONCBCN NURSING COMMUNICATION [id number] 2 05/12 ONCBCN NURSING COMMUNICATION [id number] 1 1 07/12/2023 PHYSICIAN COMMUNICATION ORDER 1 05/12/2024 Appointment Requests Count Last Ordered Date Fi rst Ordered Date ONCBCN INJECTION APPOINTMENT REQUEST 1 11/2023 documented in this encounter Care Teams Banking Pin Adjuster Relationship Specialty Start Date End Date Julio César Briseno MD PCP - General 10/01/16 Eren Cr MD Referring Physician Medical Oncology 11/25/18 Yohana Bowen MD Radiation Oncologist Radiation Oncology 11/25/18 Alejo Mi MD [address] [address] Referring Physician Nephrology 03/07/23 documented as of this encounter
--- OUTSIDE RECORDS SUMMARY | 2024-06-26 01:52 | XMS_ITS | Encounter Summary ---
Author Organization [facility] Healthcare Address [address] [place] [address] Care Team Providers Care Bed And Breakfast Operator Name Role Phone Julio César Briseno MD Primary Care Provider [phone] Eren Cr MD Unavailable [phone] Yohana Bowen MD Unavailable Alejo Mi MD Unavailable [phone] Reason for Referral * MRI/CAT/PET Scan (Routine) - Closed Specialty Diagnoses / Procedures Referred By Evelyne bowman Referred To Contact Radiology Diagnoses Neuroendocrine carcinoma (HCC) Procedures CT chest abdomen pelvis with contrast Eren Cr MD [address] [employer] [address] [place] [address] Phone: tel: fax: [address] [address] Referral ID Status Reason Start Date Expiration Date Visits Re quested Visits Authorized [id number] Closed 04/03/2024 05/03/2025 1 1 Reason for Visit * MRI/CAT/PET Scan (Routine) - Closed Specialty Diagnoses / Procedures [facility] Referred To Contact Radiology Diagnoses Neuroendocrine carcinoma (HCC) Procedures CT chest abdomen pelvis with contrast Eren Cr MD [address] [employer] [address] [place] [address] Phone: tel: fax: [facility] [address] [facility] [address] Referral ID Status Reason Start Date Expiration Date Visits Re quested Visits Authorized [id number] Closed 04/03/2024 05/03/2025 1 1 Encounter Details Date Type Department Care Team (Latest Contact Info) Description 05/06/2024 8:06 AM CDT - 05/06/2024 11:59 PM CDT Hospital Encounter [facility] [address] [place] [address] Eren Cr MD [address] [facility] [address] [address] [place] [address] Neuroendocrine carcinoma (HCC) Discharge Disposition: Discharge to [...] on file Legal Sex Female 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 Gender Identity Not on file Sexual [...] 1 tablet (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) by mouth tobacco stripper hand before breakfast 90 tablet 3 11/28/2023 5 [...] nightly 0.9 % sodium chloride ([facility] sodium chloride 0.9%) injectionIndicati ons:line care Infuse 10 mL into a venous catheter once a week On saturday 4 0.9 % sodium chloride (sodium chloride 0.9%) 0.9% infusion 05/22/2023 4 amoxicillin 500 mg capsule TAKE 4 CAPSULES BY MOUTH 1 HOUR BEFORE APPOINTMENT 01/27/2024 4 ascorbic acid, vitamin C, 500 mg capsuleIndication s:supplement Take 1 tablet by mouth tobacco stripper hand before breakfast 07/04/2016 4 clotrimazole-beta methasone (LOTRISONE) cream Apply 1 Application topically daily as needed (rash) 4 coenzyme [id number] 100-5 mg-unit capsuleIndication s:supplement Take 1 tablet by mouth tobacco stripper hand before breakfast 4 diphenoxylate-atr opine (LOMOTIL) 2.5-0.025 [...] and 1 hour after each dose).?? Avoid [place]'s Wort, grapefruit products and [place] oranges while on treatment. placed on hold 09/26/22 for covid 01/29/2022 4 ipratropium (ATROVENT) 42 mcg (0.06 %) nasal spray [place] 1 spray twice a day by nasal [...] 04/09 documented in this encounter Care Teams Bed And Breakfast Operator Relationship Specialty Start Date End Date Julio César Briseno MD PCP - General 10/01/16 Eren Cr MD Referring Physician Medical Oncology 11/25/18 Yohana Bowen MD Radiation Oncologist Radiation Oncology 11/25/18 Alejo Mi MD [address] [address] Referring Physician Nephrology 03/07/23 documented as of this encounter
--- OUTSIDE RECORDS SUMMARY | 2024-06-26 01:52 | XMS_ITS | Encounter Summary ---
Author Organization [facility] Address [address] [place] [address] Phone Care Team Providers Care Cuprous Chloride Helper Name Role Phone Julio César Briseno MD Primary Care Provider [phone] Eren Cr MD Unavailable [phone] Yohana Bowen MD Unavailable Alejo Mi MD Unavailable [phone] Reason for Visit * Consultation (Routine) - Authorized Specialty Diagnoses / Procedures Referred By Contellen t Referred To Contact Oncology Diagnoses Neuroendocrine carcinoma (HCC) Eren Cr MD [address] [facility] [address] [place] [address] Phone: tel: fax: Eren Cr MD [address] [facility] [address] [place] [address] Phone: tel: fax: Referral ID Status Reason Start Date Expiration Date Visits Requested Visits Authorized [id number] Authorized Specialty Services Required 04/14/2024 05/14/2025 99 99 Encounter Details Date Type Department Care Team (Late st Contact Info) Description 04/14/2024 10:45 AM CDT Office Visit [facility] Oncology [address] [place] [address] Eren Cr MD [address] [facility] [address] [place] [address] Neuroendocrine carcinoma (HCC) (Primary Dx); Neuro-endocrine carcinoma [...] file Legal Sex Female 2:41 PM SUPERVISOR 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 0.9 % sodium chloride ([facility] sodium chloride 0.9%) injection 10 [...] topically daily as needed (rash) ??? coenzyme [id number] E 100-5 mg-unit capsule 1 tablet, Daily [...] 100 unit/mL solution 5 mL, Weekly ??? [facility] cabozantinib/placebo (/[id number]) 20 mg, oral, Nightly, Take on an empty stomach (no food for 2 hours before and 1 hour after each dose). Avoid Miller's Wort, grapefruit products and [place] oranges while on treatment. placed on hold [...] Eren Cr MD Division of Medical Oncology [facility] My total encounter time [...] * (ABNORMAL) Chromogranin A (05/12/2024 10:26 AM SUPERVISOR FRAME SAMPLE AND PATTERN) Chromogranin A 4282(H) <93 ng/mL [facility] Comment: Impaired renal or hepatic function or treatment with proton pump inhibitors may result in artifactual elevations of Chromogranin A. ADDITIONAL INFORMATION The testing method is a homogeneous time-resolved immunofluorescent assay manufactured by [employer] and performed on the [employer] Compact Plus. ? Values obtained with different [...] examination and other findings. Test Performed by: [facility] [address] [place] [address] Store Person: Carley Tony Ph.D.; CLIA# [id number] Blood 05/12/2024 10:2 6 AM SUPERVISOR FRAME SAMPLE AND PATTERN 05/12/2024 11:41 AM SUPERVISOR FRAME SAMPLE AND PATTERN Eren Cr MD LAB BLOOD ORDERABLES [place] [address] [facility] * (ABNORMAL) Vitamin D 25 hydroxy (05/12/2024 10:26 AM SUPERVISOR FRAME SAMPLE AND PATTERN) Pathologist [facility] Vitamin D 25-OH 18(L) 30 - 80 ng/mL Blood 05/12/2024 10:2 6 AM SUPERVISOR FRAME SAMPLE AND PATTERN 05/12/2024 11:56 AM SUPERVISOR FRAME SAMPLE AND PATTERN Eren Cr MD LAB BLOOD ORDERABLES Final Re sult Performing Organization Address [facility] Co de Phone Number [facility] [place] [address] * Phosphorus (05/12/2024 10:26 AM SUPERVISOR FRAME SAMPLE AND PATTERN) Pathologist [facility] Phosphorus, pl 2.9 2.3 - 4.5 mg/dL Comment:Testing performed by : [facility], [address] [place] [address] Blood 05/12/2024 10:2 6 AM SUPERVISOR FRAME SAMPLE AND PATTERN 05/12/2024 10:27 AM SUPERVISOR FRAME SAMPLE AND PATTERN Eren Cr MD LAB BLOOD ORDERABLES Final Re sult [facility] [place] [address] * (ABNORMAL) Lipid panel (05/12/2024 10:26 AM SUPERVISOR FRAME SAMPLE AND PATTERN) [facility] Cholesterol 128 30 - 199 mg/dL Comment: [...] 2018. LDL, calculated 67 <=129 mg/dL [facility] Comment: Interpretive Data Ages < [...] on 2024. Non-HDL Cholesterol 91 mg/dL [facility] Comment: Interpretive Data Ages < [...] ratio 3 [facility] Blood 05/12/2024 10:2 6 AM SUPERVISOR FRAME SAMPLE AND PATTERN 05/12/2024 11:56 AM SUPERVISOR FRAME SAMPLE AND PATTERN us Eren Cr MD LAB BLOOD ORDERABLES Final Re sult Performing Organization Address [facility] de Phone Number [facility] Department [place] [address] * Magnesium (05/12/2024 10:26 AM SUPERVISOR FRAME SAMPLE AND PATTERN) Magnesium 1.5 1.4 - 2.5 mg/dL Comment:Testing performed by : [address] [address] Blood 05/12/2024 10:2 6 AM SUPERVISOR FRAME SAMPLE AND PATTERN 05/12/2024 10:27 AM SUPERVISOR FRAME SAMPLE AND PATTERN us Eren Cr MD LAB BLOOD ORDERABLES Final Re sult Performing Organization Address [facility] Co de Phone Number [facility] Department [place] [address] * (ABNORMAL) Comprehensive metabolic panel (05/12/2024 10:26 AM SUPERVISOR FRAME SAMPLE AND PATTERN) Sodium 139 135 - 145 mmol/L Comment:Testing performed by : [address] [address] Potassium, pl 4.3 3.3 - 4.9 mmol/L [facility] Chloride 109 97 - 110 mmol/L [facility] CO2 22 22 - 32 mmol/L [facility] Anion gap 8 2 - 15 mmol/L [facility] BUN 20 6 - 25 mg/dL [facility] Creatinine 1.44(H) 0.60 - 1.10 mg/dL [facility] Glucose 89 70 - 199 mg/dL [facility] [...] 2022. Calcium 10.1 8.5 - 10.3 mg/dL [facility] Bilirubin, total 0.4 0.1 - 1.2 mg/dL [facility] Protein, pl 6.1(L) 6.5 - 8.5 g/dL [facility] Albumin 4.0 3.5 - 5.0 g/dL [facility] Alk phos 66 40 - 130 Units/L [facility] ALT 21 7 - 45 Units/L [facility] AST 38 10 - 45 Units/L [facility] Blood 05/12/2024 10:2 6 AM SUPERVISOR FRAME SAMPLE AND PATTERN 05/12/2024 10:27 AM SUPERVISOR FRAME SAMPLE AND PATTERN Eren Cr MD LAB BLOOD ORDERABLES Final Re sult [facility] Department of Laboratories [place], [place] [id number] * (ABNORMAL) CBC with auto differential (05/12/2024 10:26 AM SUPERVISOR FRAME SAMPLE AND PATTERN) [facility] WBC 7.9 3.8 - 9.9 K/cumm Comment:Testing performed by : [facility], [address] [place] [address] Hgb 11.3(L) 11.9 - 15.5 g/dL [facility] Comment:Testing performed by : [facility], [address] [place] [address] Hct 35.5(L) 35.6 - 45.5 % [facility] Comment:Testing performed by : [facility], [address] [place] [address] Plt 129(L) 150 - 400 K/cumm [facility] Comment:Testing performed by : [facility], [address] [place] [address] MPV 9.0(L) 9.1 - 12.3 fL [facility] RBC 3.57(L) 3.90 - 5.20 M/cumm [facility] MCV 99.4(H) 81.3 - 96.4 fL [facility] MCH 31.7 27.1 - 33.3 pg [facility] MCHC 31.8(L) 32.3 - 35.7 g/dL [facility] RDW CV 15.7(H) 11.1 - 14.9 % [facility] RDW SD 57.3(H) 35.7 - 48.1 fL [facility] NRBC abs 0.00 0.00 - 0.01 K/cumm [facility] Blood 05/12/2024 10:2 6 AM SUPERVISOR FRAME SAMPLE AND PATTERN 05/12/2024 10:27 AM SUPERVISOR FRAME SAMPLE AND PATTERN Eren Cr MD LAB BLOOD ORDERABLES Final Re sult Performing Organization Address City/State/[facility] Co de Phone Number [facility] Department [place] [address] documented in this encounter Visit Diagnoses Diagnosis [...] 24 documented in this encounter Care Teams Cuprous Chloride Helper Relationship Specialty Start Date End Date Julio César Briseno MD PCP - General 10/01/16 Eren Cr MD Referring Physician Medical Oncology 11/25/18 Yohaan Bowen MD Radiation Oncologist Radiation Oncology 11/25/18 Alejo Mi MD [address] [address] Referring Physician Nephrology 03/07/23 documented as of this encounter
--- OUTSIDE RECORDS SUMMARY | 2024-06-26 01:52 | XMS_ITS | Encounter Summary ---
Author Organization [facility] Address [address] [place] [address] Phone Care Team Providers Care Manager Strategic Name Role Phone Julio César Briseno MD Primary Care Provider Eren Cr MD Unavailable Yohana Bowen MD Unavailable Alejo Mi MD Unavailable [phone] Encounter Details Date Type Department Care Team (Late st Contact Info) Description 04/14/2024 Orders Only [facility] Oncology [address] [facility] Floor [address] [place] [address] Hien Jaimes, [facility] [...] on file 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 Gender Identity Not on file Sexual Orientation Straight 02/19/2021 9: 29 AM CDT Occupation Industry Job Start Date Job End Date retired Not on file Not on file Not on file documented as of this encounter Plan of Treatment Not on file documented as of this encounter Visit Diagnoses Not on filedocumented in this encounter Care Teams Manager Strategic Relationship Specialty Start Date End Date Julio César Briseno MD PCP - General 10/01/16 Eren Cr MD Referring Physician Medical Oncology 11/25/18 Yohana Bowen MD Radiation Oncologist Radiation Oncology 11/25/18 Alejo Mi MD [address] [address] Referring Physician Nephrology 03/07/23 documented as of this encounter
--- OUTSIDE RECORDS SUMMARY | 2024-06-26 01:52 | XMS_ITS | Encounter Summary ---
Author Organization [facility] Address [address] [place] [address] Phone Care Team Providers Care Supervisor Hot Dip Plating Name Role Phone Julio César Briseno MD Primary Care Provider Eren Cr MD Unavailable [phone] Yohana Bowen MD Unavailable Alejo Mi MD Unavailable [phone] Encounter Details Date Type Department Care Team (Late st Contact Info) Description 06/12/2024 Orders Only [facility] Oncology [address] [facility] Floor [address] [place] [address] Claude Browning MD [address] [facility] [address] [place] [address] Social History Tobacco Use Types [...] file Legal Sex Female 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
--- OUTSIDE RECORDS SUMMARY | 2024-06-26 01:52 | XMS_ITS | Encounter Summary ---
Author Organization [facility] Address [address] [place] [address] Phone Care Team Providers Care Film Laboratory Technician Name Role Phone Julio César Briseno MD Primary Care Provider [phone] Eren Cr MD Unavailable [phone] Yohana Bowen MD Unavailable Alejo Mi MD Unavailable [phone] Encounter Details Date Type Department Care Team (Late st Contact Info) Description 03/17/2024 Orders Only [facility] Oncology [address] [place] [address] Eren Cr MD [address] [place] [address] Social History Tobacco Use Types Packs/Day Years [...] on file 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 Gender Identity Not on file Sexual Orientation Straight 02/19/2021 9: 29 AM CDT Occupation Industry Job Start Date Job End Date retired Not on file Not on file Not on file documented as of this encounter Plan of Treatment Not on file documented as of this encounter Visit Diagnoses Not on filedocumented in this encounter Care Teams Film Laboratory Technician Relationship Specialty Start Date End Date Julio César Briseno MD PCP - General 10/01/16 Eren Cr MD Referring Physician Medical Oncology 11/25/18 Yohana Bowen MD Radiation Oncologist Radiation Oncology 11/25/18 Alejo Mi MD [address] [place] [address] Referring Physician Nephrology 03/07/23 documented as of this encounter
--- OUTSIDE RECORDS SUMMARY | 2024-06-26 01:52 | XMS_ITS | Encounter Summary ---
Author Organization [facility] Address [address] [place] [address] Phone Care Team Providers Care Manager Area Name Role Phone Julio César Briseno MD Primary Care Provider [phone] Eren Cr MD Unavailable [phone] Yohana Bowen MD Unavailable Alejo Mi MD Unavailable [phone] Encounter Details Date Type Department Care Team (Late st Contact Info) Description 03/17/2024 Orders Only [facility] Oncology [address] [place] [address] Eren Cr MD [address] [place] [address] Social History Tobacco Use Types Packs/Day Years [...] on file 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 Gender Identity Not on file Sexual Orientation Straight 02/19/2021 9: 29 AM CDT Occupation Industry Job Start Date Job End Date retired Not on file Not on file Not on file documented as of this encounter Plan of Treatment Not on file documented as of this encounter Visit Diagnoses Not on filedocumented in this encounter Care Teams Manager Area Relationship Specialty Start Date End Date Julio César Briseno MD PCP - General 10/01/16 Eren Cr MD Referring Physician Medical Oncology 11/25/18 Yohana Bowen MD Radiation Oncologist Radiation Oncology 11/25/18 Alejo Mi MD [address] [place] [address] Referring Physician Nephrology 03/07/23 documented as of this encounter
--- OUTSIDE RECORDS SUMMARY | 2024-06-26 01:53 | XMS_ITS | Encounter Summary ---
Author Organization [facility] Address [address] [place] [address] Phone Care Team Providers Care Sharepoint Application Architect Name Role Phone Julio César Briseno MD Primary Care Provider [phone] Eren Cr MD Unavailable [phone] Yohana Bowen MD Unavailable RaleighAlejo Ramos MD Unavailable [phone] Reason for Visit * Episode Based Medications (Routine) - Closed Specialty Diagnoses / Procedures Referred By Contac t Referred To Contact Diagnoses Neuro-endocrine carcinoma (HCC) Procedures study [id number] phase III cabozantinib Eren Cr MD [address] [facility] [address] [place] [address] Phone: tel: fax: [facility] at and [facility] [address] [facility] Advanced Medicine 7th [place] [address] Phone: tel: Referral ID Status Reason Start Date Expiration Date Visits Re quested Visits Authorized [id number] Closed 06/21/2021 06/26/2024 1 99 Encounter Details Date Type Department Care Team (Late st Contact Info) Description 02/18/2024 10:15 AM CDT Office Visit [facility] Oncology [address] [place] [address] Eren Cr MD [address] [facility] [address] [place] [address] Neuroendocrine carcinoma (HCC) (Primary Dx); Malignant neoplasm [...] file 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 Avoid Jas's Wort, grapefruit products and [place] oranges while on treatment. placed on hold [...] Exam Vitals reviewed. Exam conducted with a media law faculty member present. Constitutional: General: She is not in [...] 11:44 Tumor Markers Chromogranin A <93 ng/mL [phone] RADIOGRAPHIC/DIAGNOSTIC REVIEW: CT chest abdomen pelvis with [...] Re sult Performing Organization Address City/[facility] Co de Phone Number [facility] One [facility] Department [place] [address] * Phosphorus (03/17/2024 11:16 AM CDT) Pathologist [facility] Phosphorus, pl 2.3 2.3 - 4.5 mg/dL Comment:Testing performed by : [address] [address] Blood 03/17/2024 11:1 6 AM CDT 03/17/2024 11:16 AM CDT Eren Cr MD LAB BLOOD ORDERABLES Final Re sult Performing Organization Address [facility] Co de Phone Number [facility] One [facility] Department [place] [address] * Lipid panel (03/17/2024 11:16 AM CDT) Pathologist [facility] Cholesterol 136 30 - 199 mg/dL Comment: [...] revised on 2018. Triglycerides 123 <=149 mg/dL [facility] Comment: Interpretive Data Ages < or [...] revised on 2018. HDL 47 >=40 mg/dL [facility] Comment: Interpretive Data Ages < or = [...] 2018. LDL, calculated 67 <=129 mg/dL J[facility]ON [facility] Comment: Interpretive Data Ages < or = [...] revised on 2024. Non-HDL Cholesterol 89 mg/dL [facility] Comment: Interpretive Data Ages < or = [...] revised on 2018. Chol/HDL ratio 3 [facility] Blood 03/17/2024 11:1 6 AM CDT 03/17/2024 1:02 PM CDT us Eren Cr MD LAB BLOOD ORDERABLES Final Re sult [facility] One [facility] Department of Laboratories [place], [place] [id number] * (ABNORMAL) Chromogranin A (03/17/2024 11:16 AM CDT) Chromogranin A 2992(H) <93 ng/mL [facility] Comment: Impaired renal or hepatic function or treatment with proton pump inhibitors may result in artifactual elevations of Chromogranin A. ADDITIONAL INFORMATION The testing method is a homogeneous time-resolved immunofluorescent assay manufactured by [employer] and performed on the [employer] Kryptor Compact Plus. ? Values obtained with [...] examination and other findings. Test Performed by: [place] [address] Clinical Psychology Professor: Carley Tony Ph.D.; CLIA# [id number] Blood 03/17/2024 11:1 6 AM CDT 03/17/2024 1:12 PM CDT Eren Cr MD LAB BLOOD ORDERABLES Final Re sult Performing Organization Address [facility] Co de Phone Number [facility] Department [place] [employer] [place] [address] [facility] * (ABNORMAL) TSH (03/17/2024 11:16 AM CDT) Thyroid Stimulating Hormone 5.72(H) 0.30 - 4.20 mcIUnit/mL Blood 03/17/2024 11:1 6 AM CDT 03/17/2024 1:02 PM CDT Eren rC MD LAB BLOOD ORDERABLES Final Re sult Performing Organization Address City/[facility]/ZIP Co de Phone Number GREGMINNIE SOFIAH One [facility] [address] * (ABNORMAL) Phosphorus (03/17/2024 11:16 AM CDT) Pathologist [facility] Phosphorus, pl 2.2(L) 2.3 - 4.5 mg/dL Comment:Testing performed by : [facility], [address] [place] [address] Blood 03/17/2024 11:1 6 AM CDT 03/17/2024 11:16 AM CDT Eren Cr MD LAB BLOOD ORDERABLES Final Re sult Performing Organization Address [facility]/[place] [address] * Magnesium (03/17/2024 11:16 AM CDT) [facility] Magnesium 1.4 1.4 - 2.5 mg/dL Comment:Testing performed by : [facility], [address] [place] [address] Blood 03/17/2024 11:1 6 AM CDT 03/17/2024 11:16 AM CDT Eren Cr MD LAB BLOOD ORDERABLES Final Re sult Performing Organization Address City/[facility]/[place] [address] * (ABNORMAL) Comprehensive metabolic panel (03/17/2024 11:16 AM CDT) Pathologist [facility] Sodium 137 135 - 145 mmol/L Comment:Testing performed by : [facility], [address] [place] [address] Potassium, pl 4.3 3.3 - 4.9 mmol/L [facility] Chloride 108 97 - 110 mmol/L [facility] CO2 24 22 - 32 mmol/L [facility] Anion gap 5 2 - 15 mmol/L [facility] BUN 18 6 - 25 mg/dL [facility] Creatinine 1.34(H) 0.60 - 1.10 mg/dL [facility] Glucose 103 70 - 199 mg/dL [facility] Comment: Interpretive Data Fasting glucose [...] 2022. Calcium 9.6 8.5 - 10.3 mg/dL [facility] Bilirubin, total 0.5 0.1 - 1.2 mg/dL [facility] Protein, pl 5.9(L) 6.5 - 8.5 g/dL [facility] Albumin 3.9 3.5 - 5.0 g/dL [facility] Alk phos 55 40 - 130 Units/L [facility] ALT 16 7 - 45 Units/L [facility] AST 27 10 - 45 Units/L [facility] Blood 03/17/2024 11:1 6 AM CDT 03/17/2024 11:16 AM CDT Eren Cr MD LAB BLOOD ORDERABLES Final Re sult [facility] One [facility] Department [place] [address] * (ABNORMAL) CBC with auto differential (03/17/2024 11:16 AM CDT) Pathologist [facility] WBC 4.2 3.8 - 9.9 K/cumm Comment:Testing performed by : [address] [address] Hgb 10.9(L) 11.9 - 15.5 g/dL [facility] Comment:Testing performed by : [address] [address] Hct 33.6(L) 35.6 - 45.5 % [facility] Comment:Testing performed by : [facility], [address] [place] [address] Plt 102(L) 150 - 400 K/cumm [facility] Comment:Testing performed by : [facility], [address] [place] [address] MPV 9.3 9.1 - 12.3 fL [facility] RBC 3.51(L) 3.90 - 5.20 M/cumm [facility] MCV 95.7 81.3 - 96.4 fL [facility] MCH 31.1 27.1 - 33.3 pg [facility] MCHC 32.4 32.3 - 35.7 g/dL [facility] RDW CV 16.1(H) 11.1 - 14.9 % [facility] RDW SD 57.0(H) 35.7 - 48.1 fL [facility] NRBC abs 0.00 0.00 - 0.01 K/cumm [facility] Blood 03/17/2024 11:1 6 AM CDT 03/17/2024 11:16 AM CDT us Eren Cr MD LAB BLOOD ORDERABLES Final Re sult Performing Organization Address City/[facility]/ZIP Co de Phone Number [facility] Department [place] [address] * Ferritin (02/18/2024 12:48 PM CDT) Pathologist [facility] Ferritin 127 13 - 150 ng/mL Blood 02/18/2024 12:4 8 PM CDT 02/18/2024 1:54 PM CDT us Billie Raymundo NP LAB BLOOD ORDERABLES Final Resul t Performing Organization Address City/[facility]/ZIP Co de Phone Number [facility] Department [place] [address] * Iron profile w/ IBC (02/18/2024 12:48 PM CDT) Iron 74 35 - 145 mcg/dL TIBC 290 250 - 400 mcg/dL [facility] Transferrin saturation 26 20 - 50 % [facility] Blood 02/18/2024 12:4 8 PM CDT 02/18/2024 1:54 PM CDT Billie Raymundo PIPE CAULKER LAB BLOOD ORDERABLES Final Resul t [facility] One [facility] Department of Laboratories [place], [place] [id number] documented in this encounter Visit Diagnoses Diagnosis [...] 24 documented in this encounter Care Teams Sharepoint Application Architect Relationship Specialty Start Date End Date Julio César Briseno MD PCP - General 10/01/16 Eren Cr MD Referring Physician Medical Oncology 11/25/18 Yohana Bowen MD Radiation Oncologist Radiation Oncology 11/25/18 Alejo Mi MD [address] [place] [address] Referring Physician Nephrology 03/07/23 documented as of this encounter
--- OUTSIDE RECORDS SUMMARY | 2024-06-26 01:53 | XMS_ITS | Encounter Summary ---
Author Organization [facility] Address [address] [place] [address] Phone Care Team Providers Care Farmworker Vegetable Name Role Phone Julio César Briseno MD Primary Care Provider [phone] Eren Cr MD Unavailable [phone] Yohana Bowen MD Unavailable LandrumAlejo Ramos MD Unavailable [phone] Reason for Visit * Reason Comments Injections Octreotide/xgeva * Episode Based Medications (Routine) - Authorized Specialty Diagnoses / Procedures Referred By Contac t Referred To Contact Oncology Diagnoses Neuroendocrine carcinoma (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) Procedures [place] OCTREOTIDE INJECTION, DEPOT Octreotide 28 Day Cycles - Carcinoid Eren Cr MD [address] [facility] [address] [place] [address] Phone: tel: fax: [facility] [address] [address] Phone: tel: fax: Referral ID Status Reason Start Date Expiration Date V isits Requested Visits Authorized [id number] Authorized 11/28/2017 02/05/2025 1 150 Encounter Details Date Type Department Care Team (Late st Contact Info) Description 12/24/2023 1:15 PM CDT Infusion [facility] Oncology [address] [place] [address] Neuroendocrine carcinoma (HCC); Malignant neoplasm metastatic to [...] file 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
--- OUTSIDE RECORDS SUMMARY | 2024-06-26 01:53 | XMS_ITS | Encounter Summary ---
Author Organization [facility] Healthcare Address [address] [place] [address] Care Team Providers Care Compressor Station Engineer Chief Name Role Phone Julio César Briseno MD Primary Care Provider [phone] Eren Cr MD Unavailable [phone] Yohana Bowen MD Unavailable Alejo Mi MD Unavailable [phone] Encounter Details Date Type Department Care Team (Latest Contact Info) Description 01/24/2024 2:00 PM CDT Clinical Support [facility] at [facility] [address] [facility] Advanced Medicine 7th [place] [address] Neuro-endocrine carcinoma (HCC); Malignant neoplasm metastatic to [...] on file 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 Gender Identity Not on file [...] Testing performed by: [facility], [address] [place] [phone] Blood 01/24/2024 2:16 PM CDT 01/24/2024 2:17 PM CDT us Billie Raymundo MINE ENGINEERING SUPERINTENDENT LAB BLOOD ORDERABLES Final Resul t JASON BLACK One [facility] Department [place] [address] * (ABNORMAL) Basic metabolic panel (01/24/2024 2:16 PM CDT) Sodium 137 135 - 145 mmol/L Comment:Testing performed by : [facility], [address] [place] [phone] Potassium, pl 3.9 3.3 - 4.9 mmol/L JASON BLACK Comment:Testing performed by : [facility], [address] [place] [phone] Chloride 107 97 - 110 mmol/L J[facility]ON BLACK Comment:Testing performed by : [facility], [address] [place] [phone] CO2 22 22 - 32 mmol/L JASON BLACK Comment:Testing performed by : [address] [phone] Anion gap 9 2 - 15 mmol/L JAOSN BLACK Comment:Testing performed by : [address] [address] BUN 20 6 - 25 mg/dL JASON BLACK Comment:Testing performed by : [facility], [address] [place] [phone] Creatinine 1.49(H) 0.60 - 1.10 mg/dL JASON BLACK Comment:Testing performed by : [facility], [address] [place] [phone] Glucose 135 70 - 199 mg/dL JASON [...] was last revised 2022. Testing performed by: [facility], [address] [place] [phone] Calcium 9.4 8.5 - 10.3 mg/dL [facility] Comment:Testing performed by : [facility], [address] [place] [phone] Blood 01/24/2024 2:16 PM CDT 01/24/2024 2:17 PM CDT us Billie Raymundo MINE ENGINEERING SUPERINTENDENT LAB BLOOD ORDERABLES Final Resul t [facility] One [facility] Department [place] [address] documented in this encounter Visit Diagnoses Diagnosis Neuro-endocrine carcinoma (HCC) Other malignant neoplasm of unspecified site 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
--- OUTSIDE RECORDS SUMMARY | 2024-06-26 01:53 | XMS_ITS | Encounter Summary ---
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 Gender Identity Not on file Sexual [...] 1 tablet (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) by mouth bed manager before breakfast 90 tablet 3 11/28/2023 [...] tablet 01/14/2024 4 0.9 % sodium chloride ([facility] sodium chloride 0.9%) injectionIndicati ons:line care Infuse 10 mL into a venous catheter once a week On saturday 4 0.9 % sodium chloride (sodium chloride 0.9%) 0.9% infusion 05/22/2023 4 ascorbic acid, vitamin C, 500 mg capsuleIndication s:supplement Take 1 tablet by mouth bed manager before breakfast 07/04/2016 4 clotrimazole-beta methasone (LOTRISONE) cream Apply 1 Application topically daily as needed (rash) 4 coenzyme Z84-[id number] E 100-5 mg-unit capsuleIndication s:supplement Take 1 tablet by mouth bed manager before breakfast 4 diphenoxylate-atr opine (LOMOTIL) [...] dose).?? Avoid Jas's Wort, grapefruit products and [place] oranges while on treatment. placed on hold [...] of Klebsiella pneumoniae (.) Organism KLEBSIELLA PNEUMONIAE [facility] Urine, bladder 01/14/2024 5: 07 PM CDT 01/14/2024 5:50 PM CDT Narrative JASON [facility] - 01/16/2024 10:36 AM CDT Testing performed by [facility] ([phone]) Organism Antibiotic Method Susceptibility Klebsiella pneumoniae Ampicillin [...] us Alejo Mi MD LAB MICROBIOLOGY - [facility] AL ORDERABLES Final Result [facility] One [facility] [place] [address] documented in this encounter Visit Diagnoses Diagnosis Acute cystitis with hematuria documented in this encounter Care Teams Equipment Validation Engineer Relationship Specialty Start Date End Date Julio César Briseno MD PCP - General 10/01/16 Eren Cr MD Referring Physician Medical Oncology 11/25/18 Yohana Bowen MD Radiation Oncologist Radiation Oncology 11/25/18 Alejo Mi MD [address] [place] [address] Referring Physician Nephrology 03/07/23 documented as of this encounter
--- OUTSIDE RECORDS SUMMARY | 2024-06-26 01:53 | XMS_ITS | Encounter Summary ---
Author Organization [facility] Healthcare Address [address] [place] [address] Care Team Providers Care Rn Operating Room Name Role Phone Julio César Briseno MD Primary Care Provider [phone] Eren Cr MD Unavailable [phone] Yohana Bowen MD Unavailable Alejo Mi MD Unavailable Reason for Visit * Reason Comments Port Draw * Episode Based Medications (Routine) - Closed Specialty Diagnoses / Procedures Referred By Evelyne t Referred To Contact Diagnoses Neuro-endocrine carcinoma (HCC) Procedures study [id number] phase III cabozantinib Eren Cr MD [address] [facility] [address] [place] [address] Phone: tel: fax: [facility] [address] [facility] Advanced Medicine 7th [place] [address] Phone: tel: Referral ID Status Reason Start Date Expiration Date Visits Re quested Visits Authorized [id number] Closed 06/21/2021 06/26/2024 1 99 Encounter Details Date Type Department Care Team (Latest Contact Info) Description 01/21/2024 11:00 AM CDT Clinical Support [facility] [address] [address] Neuro-endocrine carcinoma (HCC); Neuroendocrine carcinoma (HCC); Malignant [...] on file 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 Consider recollection by clean catch. Mucous, ur Present(A) [facility] Hyaline casts, ur 1-5 0 - 10 /LPF [facility] Culture Reflex Comment Reflex conditions for urine culture (WBC >10) not met. [facility] Urine, clean voided 01/21/2024 11:58 AM CDT 01/21/2024 2:02 PM CDT Eren Cr MD LAB URINE ORDERABLES Final Re sult Performing Organization Address City/[facility]/ZIP Co de Phone Number JASON [facility] Department [place] [address] * (ABNORMAL) Urinalysis reflex to microscopic and culture Urine, clean voided (01/21/2024 11:58 AM CDT) Color, ur Yellow Yellow Clarity, ur Clear Clear [facility] Specific gravity, ur 1.026 1.003 - 1.030 [facility] pH, urine 6.0 [facility] Comment: Interpretive Data ? Urine pH is affected by diet, medications, systemic acid-base disturbances, and renal tubular function. ??pH may affect urinary stone formation. ??For example, urine pH below 6.0 may help reduce the tendency for calcium phosphate stones and pH greater than 6.0 may reduce the tendency for uric acid stone formation. Source: [facility] Current Interpretive Data was last revised on 2017 Protein, ur ql 1+(A) Negative [facility] Glucose, ur ql Negative Negative [facility] Ketones, ur Negative Negative [facility] Bilirubin, ur Negative Negative [facility] Blood, ur Negative Negative [facility] Urobilinogen, ur <2.0 <2.0 mg/dL [facility] Nitrite, ur Negative Negative [facility] Leukocyte esterase, ur Negative Negative [facility] UA reflex comment Reflex to microscopic UA will be performed. [facility] Urine, clean voided 01/21/2024 11:58 AM CDT 01/21/2024 2:02 PM CDT Eren Cr MD LAB MICROBIOLOGY - GENERAL OR DERABLES Final Result Performing Organization Address [facility]/ZIP Co de Phone Number [facility] Department [place] [address] * (ABNORMAL) Manual Differential (01/21/2024 11:44 AM CDT) Differential Auto RBC morphology Present(A ) [facility] Anisocytosis Slight(A) [facility] Platelet estimate Decreased (A) [facility] Blood 01/21/2024 11:4 4 AM CDT 01/21/2024 11:49 AM CDT us Eren Cr MD LAB BLOOD ORDERABLES Final Re sult [facility] Department [place] [address] * (ABNORMAL) eGFR (01/21/2024 11:44 AM CDT) [...] Re sult [facility] Department [place] [address] * Differential, auto (01/21/2024 11:44 AM CDT) Neutrophil abs 2.8 1.5 - 6.5 K/cumm Comment:Testing performed by : [facility], [address] [place] [address] Imm gran abs 0.0 0.0 - 0.1 K/cumm [facility] Lymphocyte abs 1.4 0.8 - 3.3 K/cumm [facility] Monocyte abs 0.5 0.2 - 0.8 K/cumm [facility] Eosinophil abs 0.2 0.0 - 0.5 K/cumm [facility] Basophil abs 0.0 0.0 - 0.1 K/cumm [facility] Neutrophil pct 56.4 % [facility] Comment: Interpretive Data Percent cell count reference ranges are not reported, since discordance with absolute values may lead to misinterpretation of CBC data. Current Interpretive Data was last revised on 2017. Imm gran pct 0.4 % [facility] Comment: Interpretive Data Percent cell count reference ranges are not reported, since discordance with absolute values may lead to misinterpretation of CBC data. Current Interpretive Data was last revised on 2017. Lymphocyte pct 27.5 % [facility] Comment: Interpretive Data Percent cell count reference ranges are not reported, since discordance with absolute values may lead to misinterpretation of CBC data. Current Interpretive Data was last revised on 2017. Monocyte pct 10.9 % [facility] Comment: Interpretive Data Percent cell count reference ranges are not reported, since discordance with absolute values may lead to misinterpretation of CBC data. Current Interpretive Data was last revised on 2017. Eosinophil pct 4.2 % [facility] Comment: Interpretive [...] [facility] Department [place] [address] * Lipid panel (01/21/2024 11:44 AM CDT) [...] on 2018. HDL 54 >=40 mg/dL JASON [facility] Comment: Interpretive Data [...] 2018. LDL, calculated 55 <=129 mg/dL JASON [facility] Comment: Interpretive Data [...] revised on 2018. Non-HDL Cholesterol 81 mg/dL [facility] Comment: Interpretive Data [...] last revised on 2018. Chol/HDL ratio 3 [facility] Blood 01/21/2024 11:4 4 AM CDT 01/21/2024 2:02 PM CDT us Eren Cr MD LAB BLOOD ORDERABLES Final Re sult Performing Organization Address City/[facility]/ZIP Co de Phone Number [facility] Department [place] [address] * (ABNORMAL) Vitamin D 25 hydroxy (01/21/2024 11:44 AM CDT) Vitamin D 25-OH 18(L) 30 - 80 ng/mL Blood 01/21/2024 11:4 4 AM CDT 01/21/2024 2:02 PM CDT us Eren Cr MD LAB BLOOD ORDERABLES Final Re sult Performing Organization Address City/[facility] Co de Phone Number [facility] Department [place] [address] * (ABNORMAL) Chromogranin A (01/21/2024 11:44 AM CDT) Chromogranin A 3301(H) <93 ng/mL [facility] Comment: Impaired renal or hepatic function or treatment with proton pump inhibitors may result in artifactual elevations of Chromogranin A. ADDITIONAL INFORMATION The testing method is a homogeneous time-resolved immunofluorescent assay manufactured by [employer] and performed on the Cardiaor Compact Plus. ? Values obtained with different [...] examination and other findings. Test Performed by: [place] [address] Cryptologic Supervisor: Carley Tony Ph.D.; CLIA# [id number] Blood 01/21/2024 11:4 4 AM CDT 01/21/2024 2:59 PM CDT Eren Cr MD LAB BLOOD ORDERABLES Final Re sult JASON BLACK [facility] Department [place] [address] [place] [facility] * (ABNORMAL) CBC with auto differential (01/21/2024 11:44 AM CDT) WBC 5.0 3.8 - 9.9 K/cumm Comment:Testing performed by : [facility], [address] [place] [address] Hgb 12.8 11.9 - 15.5 g/dL [facility] Comment:Testing performed by : [facility], [address] [place] [address] Hct 39.3 35.6 - 45.5 % [facility] Comment:Testing performed by : [facility], [address] [place] [address] Plt 118(L) 150 - 400 K/cumm [facility] Comment:Testing performed by : [address] [address] MPV 9.8 9.1 - 12.3 fL [facility] RBC 4.12 3.90 - 5.20 M/cumm [facility] MCV 95.4 81.3 - 96.4 fL [facility] MCH 31.1 27.1 - 33.3 pg [facility] MCHC 32.6 32.3 - 35.7 g/dL [facility] RDW CV 15.9(H) 11.1 - 14.9 % [facility] RDW SD 55.3(H) 35.7 - 48.1 fL [facility] NRBC abs 0.00 0.00 - 0.01 K/cumm [facility] Blood 01/21/2024 11:4 4 AM CDT 01/21/2024 11:44 AM CDT Eren Cr MD LAB BLOOD ORDERABLES Final Re sult [facility] Department [place] [address] * (ABNORMAL) Comprehensive metabolic panel (01/21/2024 11:44 AM CDT) Pathologist [facility] Sodium 139 135 - 145 mmol/L Comment:Testing performed by : [address] [address] Potassium, pl 3.9 3.3 - 4.9 mmol/L [facility] Chloride 108 97 - 110 mmol/L [facility] CO2 24 22 - 32 mmol/L [facility] Anion gap 7 2 - 15 mmol/L [facility] BUN 18 6 - 25 mg/dL [facility] Creatinine 1.53(H) 0.60 - 1.10 mg/dL [facility] Glucose 93 70 - 199 mg/dL [facility] 2022. Calcium 9.3 8.5 - 10.3 mg/dL [facility] Bilirubin, total 0.4 0.1 - 1.2 mg/dL [facility] Protein, pl 6.5 6.5 - 8.5 g/dL [facility] Albumin 4.1 3.5 - 5.0 g/dL [facility] Alk phos 61 40 - 130 Units/L [facility] ALT 19 7 - 45 Units/L [facility] AST 31 10 - 45 Units/L [facility] Blood 01/21/2024 11:4 4 AM CDT 01/21/2024 11:44 AM CDT Eren Cr MD LAB BLOOD ORDERABLES Final Re sult [facility] Department [place] [address] * Magnesium (01/21/2024 11:44 AM CDT) Pathologist [facility] Magnesium 1.7 1.4 - 2.5 mg/dL Comment:Testing performed by : [facility], [address] [place] [address] Blood 01/21/2024 11:4 4 AM CDT 01/21/2024 11:44 AM CDT Eren Cr MD LAB BLOOD ORDERABLES Final Re sult JASON BL[facility] [place] [address] * Phosphorus (01/21/2024 11:44 AM CDT) Phosphorus, pl 2.3 2.3 - 4.5 mg/dL Comment:Testing performed by : [facility], [address] [place] [address] Blood 01/21/2024 11:4 4 AM CDT 01/21/2024 11:44 AM CDT us Eren Cr MD LAB BLOOD ORDERABLES Final Re sult Performing Organization Address City/[facility] Co de Phone Number [place] [address] documented in this encounter Visit Diagnoses Diagnosis [...] 01/21/2024 documented in this encounter Care Teams Rn Operating Room Relationship Specialty Start Date End Date Julio César Briseno MD PCP - General 10/01/16 Eren Cr MD Referring Physician Medical Oncology 11/25/18 Yohana Bowen MD Radiation Oncologist Radiation Oncology 11/25/18 Alejo Mi MD [address] [place] [address] Referring Physician Nephrology 03/07/23 documented as of this encounter
--- OUTSIDE RECORDS SUMMARY | 2024-06-26 01:53 | XMS_ITS | Encounter Summary ---
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) Procedures VA DENOSUMAB INJECTION DENOSUMAB (XGEVA) Eren Cr MD [address] [place] [address] [address] [place] [address] Phone: tel: fax: [facility] [address] [facility] Advanced Medicine 7th [place] [address] Phone: tel: Referral ID Status Reason Start Date Expiration Date V isits Requested Visits Authorized [id number] Authorized 03/02/2019 10/06/2024 1 60 Encounter Details Date Type Department Care Team (Late st Contact Info) Description 12/24/2023 1:00 PM CDT Infusion [facility] Oncology [address] [place] [address] Neuroendocrine carcinoma (HCC) (Primary Dx); Dehydration; Malignant [...] on file 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 ON[facility] La Chung is a 73 y.o. [...] First Orde red Date ONCBCN NURSING COMMUNICATION [id number] 1 12/23 ONCBCN NURSING COMMUNICATION [id number] 1 0 12/24/2023 PHYSICIAN COMMUNICATION ORDER 1 12/24/2023 documented in this encounter Care Teams Bellperson Relationship Specialty Start Date End Date Julio César Briseno MD PCP - General 10/01/16 Eren Cr MD Referring Physician Medical Oncology 11/25/18 Yohana Bowen MD Radiation Oncologist Radiation Oncology 11/25/18 Alejo Mi MD [address] [place] [address] Referring Physician Nephrology 03/07/23 documented as of this encounter
--- OUTSIDE RECORDS SUMMARY | 2024-06-26 01:53 | XMS_ITS | Encounter Summary ---
Author Organization [facility] Healthcare Address [address] [place] [address] Care Team Providers Care Shank Scourer Name Role Phone Julio César Briseno MD Primary Care Provider [phone] Eren Cr MD Unavailable [phone] Yohana Bowen MD Unavailable Alejo Mi MD Unavailable [phone] Reason for Visit * Episode Based Medications (Routine) - Closed Specialty Diagnoses / Procedures Referred By Evelyne bowman Referred To Contact Diagnoses Neuro-endocrine carcinoma (HCC) Procedures study [id number] phase III cabozantinib Eren Cr MD [address] [place] [address] Phone: tel: fax: 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
--- OUTSIDE RECORDS SUMMARY | 2024-06-26 01:53 | XMS_ITS | Encounter Summary ---
Author Organization [facility] Address [address] [place] [address] Phone Care Team Providers Care Bias Binding Folder Name Role Phone Julio César Briseno MD Primary Care Provider [phone] Eren Cr MD Unavailable [phone] Yohana Bowen MD Unavailable Alejo Mi MD Unavailable [phone] Encounter Details Date Type Department Care Team (Late st Contact Info) Description 12/24/2023 Orders Only [facility] Oncology [address] [facility] Advanced Medicine 7th [place] [address] [place] [address] Hien Jaimes, [facility] Social History Tobacco Use Types Packs/Day [...] on file 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 Gender Identity Not on file Sexual Orientation Straight 02/19/2021 9: 29 AM CDT Occupation Industry Job Start Date Job End Date retired Not on file Not on file Not on file documented as of this encounter Plan of Treatment Not on file documented as of this encounter Visit Diagnoses Not on filedocumented in this encounter Care Teams Bias Binding Folder Relationship Specialty Start Date End Date Julio César Briseno MD PCP - General 10/01/16 Eren Cr MD Referring Physician Medical Oncology 11/25/18 Yohana Bowen MD Radiation Oncologist Radiation Oncology 11/25/18 Alejo Mi MD [address] [address] Referring Physician Nephrology 03/07/23 documented as of this encounter
--- OUTSIDE RECORDS SUMMARY | 2024-06-26 01:53 | XMS_ITS | Encounter Summary ---
Author Organization [facility] Address [address] [place] [address] Phone Care Team Providers Care Rose Grader Name Role Phone Julio César Briseno MD Primary Care Provider [phone] Eren Cr MD Unavailable [phone] Yohana Bowen MD Unavailable MelroseAlejo Ramos MD Unavailable [phone] Reason for Visit * Episode Based Medications (Routine) - Closed Specialty Diagnoses / Procedures Referred By Contac t Referred To Contact Diagnoses Neuro-endocrine carcinoma (HCC) Procedures study [id number] phase III cabozantinib Eren rC MD [address] [facility] [address] [place] [address] Phone: tel: fax: [facility] [address] [facility] [place] [facility] 7th [place] [address] Phone: tel: Referral ID Status Reason Start Date Expiration Date Visits Re quested Visits Authorized [id number] Closed 06/21/2021 06/26/2024 1 99 Encounter Details Date Type Department Care Team (Late st Contact Info) Description 01/21/2024 11:30 AM CDT Office Visit [facility] [address] [place] [address] Billie Raymundo NP [address] [place] [address] Neuro-endocrine carcinoma (HCC) (Primary Dx); Malignant neoplasm [...] file 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 Gender Identity Not on file Sexual Orientation [...] Instructions 0.9 % sodium chloride ([facility] sodium chloride 0.9%) injection 10 mL, Weekly 0.9 % sodium chloride (sodium chloride 0.9%) 0.9% infusion amLODIPine (NORVASC) 5 mg tablet ascorbic acid, vitamin C, 500 mg capsule 1 tablet, Daily (early AM) cholecalciferol (VITAMIN D-3) 1,000 Units, oral, Daily ciprofloxacin (CIPRO) 500 mg, oral, 2 times daily clotrimazole-betamethasone (LOTRISONE) cream Apply 1 Application topically daily as needed (rash) coenzyme [id number] 100-5 mg-unit capsule 1 tablet, Daily [...] Weekly [facility] cabozantinib/placebo (/[id number]) 20 mg, oral, Nightly, Take on an empty stomach (no food for 2 hours before and 1 hour after each dose). Avoid Jas's Wort, grapefruit products and [place] oranges while on treatment. placed on hold [...] Exam Vitals reviewed. Exam conducted with a planer feeder present. Constitutional: General: She is not in [...] Tumor Markers Chromogranin A <93 ng/mL [phone] RADIOGRAPHIC/DIAGNOSTIC REVIEW: CT chest abdomen pelvis with [...] D checked 06/11 16. Pt on ergocalciferol 96836 units weekly. -- she states she is [...] of caring. - Discussed possible referral to [facility] counseling -- she declines at this time. [...] - 4.5 mg/dL Comment:Testing performed by : [facility], [address] [place] [address] Blood 02/18/2024 9:45 AM CDT 02/18/2024 10:00 AM CDT Eren Cr MD LAB BLOOD ORDERABLES Final Re sult Performing Organization Address [facility] Co de Phone Number [facility] [place] [address] * Magnesium (02/18/2024 9:45 AM CDT) Magnesium 1.5 1.4 - 2.5 mg/dL Comment:Testing performed by : [address] [address] Blood 02/18/2024 9:45 AM CDT 02/18/2024 10:00 AM CDT Eren Cr MD LAB BLOOD ORDERABLES Final Re sult Performing Organization Address [facility] de Phone Number [facility] Department [place] [address] * (ABNORMAL) Comprehensive metabolic panel (02/18/2024 9:45 AM CDT) Pathologist [facility] Sodium 140 135 - 145 mmol/L Comment:Testing performed by : [address] [address] Potassium, pl 4.3 3.3 - 4.9 mmol/L [facility] Chloride 109 97 - 110 mmol/L [facility] CO2 24 22 - 32 mmol/L [facility] Anion gap 7 2 - 15 mmol/L [facility] BUN 18 6 - 25 mg/dL [facility] Creatinine 1.17(H) 0.60 - 1.10 mg/dL [facility] Glucose 92 70 - 199 mg/dL [facility] Calcium 9.6 8.5 - 10.3 mg/dL [facility] Bilirubin, total 0.4 0.1 - 1.2 mg/dL [facility] Protein, pl 5.9(L) 6.5 - 8.5 g/dL [facility] Albumin 4.0 3.5 - 5.0 g/dL [facility] Alk phos 54 40 - 130 Units/L [facility] ALT 20 7 - 45 Units/L [facility] AST 35 10 - 45 Units/L [facility] Blood 02/18/2024 9:45 AM CDT 02/18/2024 10:00 AM CDT Eren Cr MD LAB BLOOD ORDERABLES Final Re sult [facility] Department [place] [address] * (ABNORMAL) CBC with auto differential (02/18/2024 9:45 AM CDT) [facility] WBC 5.0 3.8 - 9.9 K/cumm Comment:Testing performed by : [address] [address] Hgb 10.8(L) 11.9 - 15.5 g/dL [facility] Comment:Testing performed by : [address] [address] Hct 33.4(L) 35.6 - 45.5 % [facility] Comment:Testing performed by : [address] [address] Plt 124(L) 150 - 400 K/cumm [facility] Comment:Testing performed by : [address] [address] MPV 10.2 9.1 - 12.3 fL [facility] RBC 3.46(L) 3.90 - 5.20 M/cumm [facility] MCV 96.5(H) 81.3 - 96.4 fL [facility] MCH 31.2 27.1 - 33.3 pg [facility] MCHC 32.3 32.3 - 35.7 g/dL [facility] RDW CV 17.2(H) 11.1 - 14.9 % [facility] RDW SD 61.1(H) 35.7 - 48.1 fL [facility] NRBC abs 0.00 0.00 - 0.01 K/cumm [facility] Blood 02/18/2024 9:45 AM CDT 02/18/2024 10:00 AM CDT us Eren Cr MD LAB BLOOD ORDERABLES Final Re sult [facility] Department [place] [address] * (ABNORMAL) Chromogranin A (02/18/2024 9:35 AM CDT) Chromogranin A 3200(H) <93 ng/mL [place] [facility] Comment: Impaired renal or hepatic function or treatment with proton pump inhibitors may result in artifactual elevations of Chromogranin A. ADDITIONAL INFORMATION The testing method is a homogeneous time-resolved immunofluorescent assay manufactured by [employer] and performed on the [employer] Kryptor Compact Plus. ? Values obtained with [...] examination and other findings. Test Performed by: [facility] [address] [place] [address] Barber Apprentice: Carley Tony Ph.D.; CLIA# [id number] Blood 02/18/2024 9:35 AM CDT 02/18/2024 11:02 AM CDT Eren Cr MD LAB BLOOD ORDERABLES [place] [address] [place] ref [facility] * (ABNORMAL) Vitamin D 25 hydroxy (02/18/2024 9:35 AM CDT) Vitamin D 25-OH 21(L) 30 - 80 ng/mL Blood 02/18/2024 9:35 AM CDT 02/18/2024 11:03 AM CDT Eren Cr MD LAB BLOOD ORDERABLES Final Re sult Performing Organization Address [facility] Co de Phone Number [facility] [place] [address] * Phosphorus (02/18/2024 9:35 AM CDT) Phosphorus, pl 2.6 2.3 - 4.5 mg/dL Comment:Testing performed by : [facility], [address] [place] [address] Blood 02/18/2024 9:35 AM CDT 02/18/2024 9:59 AM CDT Eren Cr MD LAB BLOOD ORDERABLES Final Re sult Performing Organization Address City/[facility]/ZIP [place] [address] * Lipid panel (02/18/2024 9:35 AM CDT) [facility] Signature Cholesterol 141 30 - 199 [...] 2018. LDL, calculated 65 <=129 mg/dL [facility] Comment: Interpretive Data Ages < [...] on 2018. Non-HDL Cholesterol 87 mg/dL [facility] Comment: Interpretive Data Ages < or [...] revised on 2018. Chol/HDL ratio 3 [facility] Blood 02/18/2024 9:35 AM CDT 02/18/2024 11:03 AM CDT Eren Cr MD LAB BLOOD ORDERABLES Final Re sult Performing Organization Address [facility] de Phone Number [facility] [place] [address] * Protein / creatinine ratio, urine, random (02/18/2024 9:30 AM CDT) Protein, ur, quant 23.7 mg/dL Comment: Interpretive Data No reference range established. Current interpretive data was last revised 2018. Creatinine Ur 138.5 mg/dL [facility] Comment: Interpretive Data No reference range established. Current interpretive data was last revised 2018. Protein/creatinin e ratio 171.1 0.0 - 180.0 mg/g CR [facility] Urine 02/18/2024 9:30 AM CDT 02/18/2024 11:03 AM CDT Eren Cr MD LAB URINE ORDERABLES Final Re sult Performing Organization Address [facility] de Phone Number [facility] [place] [address] * (ABNORMAL) Basic metabolic panel (01/24/2024 2:16 PM CDT) Pathologist [facility] Sodium 137 135 - 145 mmol/L Comment:Testing performed by : [facility], [address] [place] [phone] Potassium, pl 3.9 3.3 - 4.9 mmol/L [facility] Comment:Testing performed by : [facility], [address] [place] [phone] Chloride 107 97 - 110 mmol/L [facility] Comment:Testing performed by : [facility], [address] [place] [phone] CO2 22 22 - 32 mmol/L [facility] Comment:Testing performed by : [facility], [address] [place] [phone] Anion gap 9 2 - 15 mmol/L [facility] Comment:Testing performed by : [facility], [address] [place] [phone] BUN 20 6 - 25 mg/dL [facility] Comment:Testing performed by : [facility], [address] [place] [phone] Creatinine 1.49(H) 0.60 - 1.10 mg/dL [facility] Comment:Testing performed by : [facility], [address] [place] [phone] Glucose 135 70 - 199 mg/dL [facility] Comment: Interpretive Data Fasting glucose >/= [...] was last revised 2022. Testing performed by: [facility], [address] [place] [phone] Calcium 9.4 8.5 - 10.3 mg/dL [facility] Comment:Testing performed by : [facility], [address] [place] [phone] Blood 01/24/2024 2:16 PM CDT 01/24/2024 2:17 PM CDT us Billie Dumonto LAB SUPPORT TECH LAB BLOOD ORDERABLES Final Resul t [facility] [place] [address] documented in this encounter Visit Diagnoses Diagnosis [...] 24 documented in this encounter Care Teams Rose Grader Relationship Specialty Start Date End Date Julio César Briseno MD PCP - General 10/01/16 Eren Cr MD Referring Physician Medical Oncology 11/25/18 Yohana Bowen MD Radiation Oncologist Radiation Oncology 11/25/18 Alejo Mi MD [address] [address] Referring Physician Nephrology 03/07/23 documented as of this encounter
--- OUTSIDE RECORDS SUMMARY | 2024-06-26 01:53 | XMS_ITS | Encounter Summary ---
Author Organization [facility] Address [address] [place] [address] Phone Care Team Providers Care Fiber Optics Technician Name Role Phone Julio César Briseno MD Primary Care Provider [phone] Eren Cr MD Unavailable [phone] Yohana Bowen MD Unavailable [place] ParkAlejo Ramos MD Unavailable [phone] Reason for Visit * Episode Based Medications (Routine) - Closed Specialty Diagnoses / Procedures Referred By Contac t Referred To Contact Diagnoses Neuro-endocrine carcinoma (HCC) Procedures study [id number] phase III cabozantinib Eren Cr MD [address] [place] [address] Phone: tel: fax: [facility] [address] [facility] 7th [place] [address] Phone: tel: Referral ID Status Reason Start Date Expiration Date Visits Re quested Visits Authorized [id number] Closed 06/21/2021 06/26/2024 1 99 Encounter Details Date Type Department Care Team (Latest Contact Info) Description 12/24/2023 12:00 PM CDT Research Med Pick-Up/CTRU Peer Tutor [facility] Oncology [address] [place] [address] Neuro-endocrine carcinoma (HCC) Social History Tobacco Use [...] file 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
--- OUTSIDE RECORDS SUMMARY | 2024-06-26 01:53 | XMS_ITS | Encounter Summary ---
Author Organization [facility] Address [address] [place] [address] Care Team Providers Care Safety Inspector Name Role Phone Julio César Briseno MD Primary Care Provider [phone] Eren Cr MD Unavailable [phone] Yohana Bowen MD Unavailable Alejo Mi MD Unavailable [phone] Reason for Visit * Episode Based Medications (Routine) - Closed Specialty Diagnoses / Procedures Referred By Evelyne bowman Referred To Contact Diagnoses Neuro-endocrine carcinoma (HCC) Procedures study [id number] phase III cabozantinib Eren Cr MD [address] [place] [address] Phone: tel: fax: [facility] [address] [facility] Advanced Medicine 7th [place] [address] Phone: tel: Referral ID Status Reason Start Date Expiration Date Visits Re quested Visits Authorized [id number] Closed 06/21/2021 06/26/2024 1 99 Encounter Details Date Type Department Care Team (Latest Contact Info) Description 01/21/2024 1:30 PM CDT Research Med Pick-Up/CTRU Director Of Distance Learning [address] [address] Neuro-endocrine carcinoma (HCC) (Primary Dx) Social History [...] on file 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 Gender Identity Not on file Sexual [...] Ordered Date First Ordered Date [id number] cabozantinib (/[id number]) tablet 20 mg 1 01/21/2024 Appointment Requests Count Last Ordered Date Fi rst Ordered Date ONCBCN TAKE HOME STUDY DRUG APPT 1 01/21/20 24 documented in this encounter Care Teams Safety Inspector Relationship Specialty Start Date End Date Julio César Briseno MD PCP - General 10/01/16 Eren Cr MD Referring Physician Medical Oncology 11/25/18 Yohana Bowen MD Radiation Oncologist Radiation Oncology 11/25/18 Alejo Mi MD [address] [place] [address] Referring Physician Nephrology 03/07/23 documented as of this encounter
--- OUTSIDE RECORDS SUMMARY | 2024-06-26 01:53 | XMS_ITS | Encounter Summary ---
Author Organization [facility] Address [address] [place] [address] Phone Care Team Providers Care Swimming Pool Maintenance Supervisor Name Role Phone Julio César Briseno MD Primary Care Provider Eren Cr MD Unavailable [phone] Yohana Bowen MD Unavailable Alejo Mi MD Unavailable [phone] Encounter Details Date Type Department Care Team (Late st Contact Info) Description 01/21/2024 Orders Only [facility] [address] [place] [address] Eren Cr MD [address] [place] [address] Urinary tract infection with hematuria, site unspecified [...] on file 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 Urine pH is affected by diet, medications, systemic acid-base disturbances, and renal tubular function. ??pH may affect urinary stone formation. ??For example, urine pH below 6.0 may help reduce the tendency for calcium phosphate stones and pH greater than 6.0 may reduce the tendency for uric acid stone formation. Source: [facility] [employer] Current Interpretive Data was last revised on 2017 Protein, ur ql 1+(A) Negative [facility] Glucose, ur ql Negative Negative [facility] Ketones, ur Negative Negative [facility] Bilirubin, ur Negative Negative [facility] Blood, ur Negative Negative [facility] Urobilinogen, ur <2.0 <2.0 mg/dL [facility] Nitrite, ur Negative Negative [facility] Leukocyte esterase, ur Negative Negative [facility] UA reflex comment Reflex to microscopic UA will be performed. [facility] Urine, clean voided 01/21/2024 11:58 AM CDT 01/21/2024 2:02 PM CDT Eren Cr MD LAB MICROBIOLOGY - GENERAL OR DERABLES Final Result [facility] Department of Laboratories [place], [place] [id number] documented in this encounter Visit Diagnoses Diagnosis Urinary tract infection with hematuria, site unspecified- Primary documented in this encounter Care Teams Swimming Pool Maintenance Supervisor Relationship Specialty Start Date End Date Julio César Briseno MD PCP - General 10/01/16 Eren Cr MD Referring Physician Medical Oncology 11/25/18 Yohana Bowen MD Radiation Oncologist Radiation Oncology 11/25/18 Alejo Mi MD [address] [place] [address] Referring Physician Nephrology 03/07/23 documented as of this encounter
--- OUTSIDE RECORDS SUMMARY | 2024-06-26 01:53 | XMS_ITS | Encounter Summary ---
Author Organization [facility] Healthcare Address [address] [place] [address] Care Team Providers Care Department Head College Or [employer] Name Role Phone Julio César Briseno MD Primary Care Provider [phone] Eren Cr MD Unavailable [phone] Yohana Bowen MD Unavailable Alejo Mi MD Unavailable [phone] Reason for Visit * Reason Comments Port Draw * Episode Based Medications (Routine) - Closed Specialty Diagnoses / Procedures Referred By Evelyne t Referred To Contact Diagnoses Neuro-endocrine carcinoma (HCC) Procedures study [id number] phase III cabozantinib Eren Cr MD [address] [facility] [address] [place] [address] Phone: tel: fax: [facility] and [facility] [employer] [facility] [address] 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 73 m2 Comment: [...] Re sult [facility] One [facility] Department [place] [address] * Differential, auto (03/17/2024 11:16 AM CDT) Pathologist [facility] Neutrophil abs 2.2 1.5 - 6.5 K/cumm Comment:Testing performed by : [facility], [address] [place] [address] Imm gran abs 0.0 0.0 - 0.1 K/cumm [facility] Lymphocyte abs 1.3 0.8 - 3.3 K/cumm [facility] Monocyte abs 0.6 0.2 - 0.8 K/cumm [facility] Eosinophil abs 0.2 0.0 - 0.5 K/cumm [facility] Basophil abs 0.0 0.0 - 0.1 K/cumm [facility] Neutrophil pct 52.5 % [facility] Comment: Interpretive Data Percent cell count reference ranges are not reported, since discordance with absolute values may lead to misinterpretation of CBC data. Current Interpretive Data was last revised on 2017. Imm gran pct 0.5 % [facility] Comment: Interpretive Data Percent [...] Re sult [facility] One [facility] Department [place] [address] * (ABNORMAL) CBC with auto differential (03/17/2024 11:16 AM CDT) WBC 4.2 3.8 - 9.9 K/cumm Comment:Testing performed by : [address] [address] Hgb 10.9(L) 11.9 - 15.5 g/dL JASON BLACK Comment:Testing performed by : [address] [address] Hct 33.6(L) 35.6 - 45.5 % [facility] BLACK Comment:Testing performed by : [address] [address] Plt 102(L) 150 - 400 K/cumm [facility]ASON BLACK Comment:Testing performed by : [facility], [address] [place] [address] MPV 9.3 9.1 - 12.3 fL [facility] RBC 3.51(L) 3.90 - 5.20 M/cumm [facility] MCV 95.7 81.3 - 96.4 fL [facility] MCH 31.1 27.1 - 33.3 pg [facility] MCHC 32.4 32.3 - 35.7 g/dL [facility] RDW CV 16.1(H) 11.1 - 14.9 % [facility] RDW SD 57.0(H) 35.7 - 48.1 fL [facility] NRBC abs 0.00 0.00 - 0.01 K/cumm [facility] Blood 03/17/2024 11:1 6 AM CDT 03/17/2024 11:16 AM CDT Eren Cr MD LAB BLOOD ORDERABLES Final Re sult [facility] One [facility] Department [place] [address] * (ABNORMAL) Comprehensive metabolic panel (03/17/2024 11:16 AM CDT) Pathologist [facility] Sodium 137 135 - 145 mmol/L Comment:Testing performed by : [facility], [address] [place] [address] Potassium, pl 4.3 3.3 - 4.9 mmol/L [facility] Chloride 108 97 - 110 mmol/L [facility] CO2 24 22 - 32 mmol/L [facility] Anion gap 5 2 - 15 mmol/L [facility] BUN 18 6 - 25 mg/dL [facility] Creatinine 1.34(H) 0.60 - 1.10 mg/dL [facility] Glucose 103 70 - 199 mg/dL [facility] Comment: Interpretive Data Fasting [...] Calcium 9.6 8.5 - 10.3 mg/dL [facility] Bilirubin, total 0.5 0.1 - 1.2 mg/dL [facility] Protein, pl 5.9(L) 6.5 - 8.5 g/dL [facility] Albumin 3.9 3.5 - 5.0 g/dL [facility] Alk phos 55 40 - 130 Units/L [facility] ALT 16 7 - 45 Units/L [facility] AST 27 10 - 45 Units/L [facility] Blood 03/17/2024 11:1 6 AM CDT 03/17/2024 11:16 AM CDT Eren Cr MD LAB BLOOD ORDERABLES Final Re sult Performing Organization Address [facility] de Phone Number [facility] [place] [address] * Magnesium (03/17/2024 11:16 AM CDT) [facility] Magnesium 1.4 1.4 - 2.5 mg/dL Comment:Testing performed by : [address] [address] Blood 03/17/2024 11:1 6 AM CDT 03/17/2024 11:16 AM CDT Eren Cr MD LAB BLOOD ORDERABLES Final Re sult [facility] Department [place] [address] * (ABNORMAL) Phosphorus (03/17/2024 11:16 AM CDT) Phosphorus, pl 2.2(L) 2.3 - 4.5 mg/dL Comment:Testing performed by : [facility], [address] [place] [address] Blood 03/17/2024 11:1 6 AM CDT 03/17/2024 11:16 AM CDT Eren Cr MD LAB BLOOD ORDERABLES Final Re sult Performing Organization Address [facility] Co de Phone Number [facility] Department [place] [address] * (ABNORMAL) TSH (03/17/2024 11:16 AM CDT) [facility] Thyroid Stimulating Hormone 5.72(H) 0.30 - 4.20 mcIUnit/mL Blood 03/17/2024 11:1 6 AM CDT 03/17/2024 1:02 PM CDT Eren Cr MD LAB BLOOD ORDERABLES Final Re sult Performing Organization Address [facility] de Phone Number [facility] Department [place] [address] * (ABNORMAL) Chromogranin A (03/17/2024 11:16 AM CDT) [facility] Chromogranin A 2992(H) <93 ng/mL [facility] Comment: Impaired renal or hepatic function or treatment with proton pump inhibitors may result in artifactual elevations of Chromogranin A. ADDITIONAL INFORMATION The testing method is a homogeneous time-resolved immunofluorescent assay manufactured by [employer] and performed on the [employer] KrdoFormsor Compact Plus. ? Values obtained with different [...] examination and other findings. Test Performed by: [facility] [address] [place] [address] Wiping Rag Washer: Carley Tony Ph.D.; CLIA# [id number] Blood 03/17/2024 11:1 6 AM CDT 03/17/2024 1:12 PM CDT Eren Cr MD LAB BLOOD ORDERABLES Final Re sult Performing Organization Address [facility] de Phone Number [facility] Department [place] [address] [facility] ref [facility] * (ABNORMAL) Vitamin D 25 hydroxy (03/17/2024 11:16 AM CDT) Vitamin D 25-OH 14(L) 30 - 80 ng/mL Blood 03/17/2024 11:1 6 AM CDT 03/17/2024 1:02 PM CDT Eren Cr MD LAB BLOOD ORDERABLES Final Re sult Performing Organization Address [facility] de Phone Number [facility] [place] [address] * Lipid panel (03/17/2024 11:16 AM CDT) [...] on 2018. Triglycerides 123 <=149 mg/dL [facility] Comment: Interpretive [...] on 2018. HDL 47 >=40 mg/dL [facility] Comment: Interpretive [...] on 2018. LDL, calculated 67 <=129 mg/dL [facility] Comment: Interpretive Data [...] revised on 2024. Non-HDL Cholesterol 89 mg/dL [facility] Comment: Interpretive Data Ages [...] last revised on 2018. Chol/HDL ratio 3 [facility] Blood 03/17/2024 11:1 6 AM CDT 03/17/2024 1:02 PM CDT Eren Cr MD LAB BLOOD ORDERABLES Final Re sult Performing Organization Address [facility] Co de Phone Number [facility] Department [place] [address] * Phosphorus (03/17/2024 11:16 AM CDT) Phosphorus, pl 2.3 2.3 - 4.5 mg/dL Comment:Testing performed by : [facility], [address] [place] [address] Blood 03/17/2024 11:1 6 AM CDT 03/17/2024 11:16 AM CDT Eren Cr MD LAB BLOOD ORDERABLES Final Re sult Performing Organization Address [facility] de Phone Number [facility] Department [place] [address] documented in this encounter Visit Diagnoses Diagnosis Neuro-endocrine carcinoma (HCC) Other malignant neoplasm of unspecified site Neuroendocrine carcinoma (HCC) Other malignant neoplasm of unspecified site 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
--- OUTSIDE RECORDS SUMMARY | 2024-06-26 01:53 | XMS_ITS | Encounter Summary ---
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 [address] [facility] Advanced Medicine 7th [place] [address] Phone: tel: Referral ID Status Reason Start Date Expiration Date Visits Re quested Visits Authorized [id number] Closed 06/21/2021 06/26/2024 1 99 Encounter Details Date Type Department Care Team (Late st Contact Info) Description 03/17/2024 11:30 AM CDT Office Visit 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 Greyson Reeves. Biopsy [...] Medications Medication Instructions 0.9 % sodium chloride ([facility] sodium chloride 0.9%) injection 10 mL, [...] Application topically daily as needed (rash) coenzyme [id number] E 100-5 mg-unit capsule 1 tablet, Daily [...] heparin 100 unit/mL solution 5 mL, Weekly [facility] cabozantinib/placebo (/[id number]) 20 mg, oral, Nightly, Take on an empty stomach (no food for 2 hours before and 1 hour after each dose). Avoid Jas's Wort, grapefruit products and [place] oranges while on treatment. placed on hold [...] Tumor Markers Chromogranin A <93 ng/mL [phone] 3301 3200 Tumor markers pending today. RADIOGRAPHIC/DIAGNOSTIC [...] - Discussed possible referral to [facility] counseling -- she declines at this time. - Her family is very supportive. - managed by her PCP She will call us in the interim for any questions, concerns, or worsening symptoms. She is agreeable with this plan of care. COLLIN Varela Division of Medical Oncology [facility] documented in this encounter Plan of Treatment Not on file documented as of this encounter Results * Protein / creatinine ratio, urine, random (04/14/2024 10:40 AM CDT) Protein, ur, quant 25.2 mg/dL Comment: Interpretive Data No reference range established. Current interpretive data was last revised 2018. Creatinine Ur 178.7 mg/dL [facility] Comment: Interpretive Data No reference range established. Current interpretive data was last revised 2018. Protein/creatinin e ratio 141.0 0.0 - 180.0 mg/g CR [facility] Urine 04/14/2024 10:4 0 AM CDT 04/14/2024 11:52 AM CDT Eren Cr MD LAB URINE ORDERABLES Final Re sult Performing Organization Address [facility] Co de Phone Number [facility] Department [place] [address] * (ABNORMAL) Phosphorus (04/14/2024 10:35 AM CDT) Phosphorus, pl 1.9(L) 2.3 - 4.5 mg/dL Comment:Testing performed by : [address] [address] Blood 04/14/2024 10:3 5 AM CDT 04/14/2024 10:35 AM CDT Eren Cr MD LAB BLOOD ORDERABLES Final Re sult Performing Organization Address [facility]/[place] [address] * Magnesium (04/14/2024 10:35 AM CDT) Magnesium 1.5 1.4 - 2.5 mg/dL Comment:Testing performed by : [address] [address] Blood 04/14/2024 10:3 5 AM CDT 04/14/2024 10:35 AM CDT us Eren Cr MD LAB BLOOD ORDERABLES Final Re sult [facility] One [facility] Department [place] [address] * (ABNORMAL) Comprehensive metabolic panel (04/14/2024 10:35 AM CDT) Pathologist [facility] Sodium 140 135 - 145 mmol/L Comment:Testing performed by : [facility], [address] [place] [address] Potassium, pl 4.6 3.3 - 4.9 mmol/L [facility] Chloride 111(H) 97 - 110 mmol/L [facility] CO2 24 22 - 32 mmol/L [facility] Anion gap 5 2 - 15 mmol/L [facility] BUN 16 6 - 25 mg/dL [facility] Creatinine 1.46(H) 0.60 - 1.10 mg/dL [facility] Glucose 96 70 - 199 mg/dL [facility] Comment: Interpretive Data Fasting glucose [...] Calcium 9.5 8.5 - 10.3 mg/dL [facility] Bilirubin, total 0.4 0.1 - 1.2 mg/dL [facility] Protein, pl 5.9(L) 6.5 - 8.5 g/dL [facility] Albumin 3.8 3.5 - 5.0 g/dL [facility] Alk phos 57 40 - 130 Units/L [facility] ALT 18 7 - 45 Units/L [facility] AST 32 10 - 45 Units/L [facility] Blood 04/14/2024 10:3 5 AM CDT 04/14/2024 10:35 AM CDT Eren Cr MD LAB BLOOD ORDERABLES Final Re sult [facility] Department [place] [address] * (ABNORMAL) CBC with auto differential (04/14/2024 10:35 AM CDT) WBC 6.8 3.8 - 9.9 K/cumm Comment:Testing performed by : [address] [address] Hgb 10.8(L) 11.9 - 15.5 g/dL [facility] Comment:Testing performed by : [address] [address] Hct 33.5(L) 35.6 - 45.5 % [facility] Comment:Testing performed by : [address] [address] Plt 117(L) 150 - 400 K/cumm [facility] Comment:Testing performed by : [address] [address] MPV 9.9 9.1 - 12.3 fL [facility] RBC 3.42(L) 3.90 - 5.20 M/cumm [facility] MCV 98.0(H) 81.3 - 96.4 fL [facility] MCH 31.6 27.1 - 33.3 pg [facility] MCHC 32.2(L) 32.3 - 35.7 g/dL [facility] RDW CV 16.4(H) 11.1 - 14.9 % [facility] RDW SD 58.2(H) 35.7 - 48.1 fL [facility] NRBC abs 0.00 0.00 - 0.01 K/cumm [facility] Blood 04/14/2024 10:3 5 AM CDT 04/14/2024 10:35 AM CDT us Eren Cr MD LAB BLOOD ORDERABLES Final Re sult Performing Organization Address City/[facility] Co de Phone Number JASON I[facility] Department [place] [address] * (ABNORMAL) Chromogranin A (04/14/2024 10:35 AM CDT) Chromogranin A 2929(H) <93 ng/mL [facility] Comment: Impaired renal or hepatic function or treatment with proton pump inhibitors may result in artifactual elevations of Chromogranin A. ADDITIONAL INFORMATION The testing method is a homogeneous time-resolved immunofluorescent assay manufactured by [employer] and performed on the [employer] Compact Plus. ? Values obtained with [...] examination and other findings. Test Performed by: [place] [id number] Chemotherapist: Carley Tony Ph.D.; CLIA# [id number] Blood 04/14/2024 10:3 5 AM CDT 04/14/2024 11:52 AM CDT us Eren Cr MD LAB BLOOD ORDERABLES Final Re sult Performing Organization Address City/[facility]/ZIP Co de Phone Number [facility]ON BL[facility] Department [place] [address] [place] ref Lab * (ABNORMAL) Vitamin D 25 hydroxy (04/14/2024 10:35 AM CDT) Pathologist [facility] Vitamin D 25-OH 19(L) 30 - 80 ng/mL Blood 04/14/2024 10:3 5 AM CDT 04/14/2024 11:52 AM CDT Eren Cr MD LAB BLOOD ORDERABLES Final Re sult Performing Organization Address [facility] [place] [address] * (ABNORMAL) Phosphorus (04/14/2024 10:35 AM CDT) [facility] Phosphorus, pl 2.0(L) 2.3 - 4.5 mg/dL Comment:Testing performed by : [facility], [address] [place] [address] Blood 04/14/2024 10:3 5 AM CDT 04/14/2024 10:35 AM CDT Eren Cr MD LAB BLOOD ORDERABLES Final Re sult Performing Organization Address [facility] de [facility] [place] [address] * Lipid panel (04/14/2024 10:35 AM CDT) [facility] Cholesterol 125 30 - 199 mg/dL [...] on 2018. Triglycerides 130 <=149 mg/dL [facility] Comment: Interpretive [...] on 2018. HDL 40 >=40 mg/dL [facility] Comment: Interpretive [...] on 2018. LDL, calculated 62 <=129 mg/dL [facility] Comment: Interpretive Data Ages < [...] revised on 2024. Non-HDL Cholesterol 85 mg/dL [facility] Comment: Interpretive Data Ages < [...] last revised on 2018. Chol/HDL ratio 3 [facility] Blood 04/14/2024 10:3 5 AM CDT 04/14/2024 11:52 AM CDT us Eren Cr MD LAB BLOOD ORDERABLES Final Re sult [facility] Department [place] [address] documented in this encounter Visit Diagnoses Diagnosis [...] 24 documented in this encounter Care Teams Grey Roll Man Relationship Specialty Start Date End Date Julio César Briseno MD PCP - General 10/01/16 Eren Cr MD Referring Physician Medical Oncology 11/25/18 Yohana Bowen MD Radiation Oncologist Radiation Oncology 11/25/18 Alejo Mi MD [address] [place] [address] Referring Physician Nephrology 03/07/23 documented as of this encounter
--- OUTSIDE RECORDS SUMMARY | 2024-06-26 01:53 | XMS_ITS | Encounter Summary ---
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) Procedures CT chest abdomen pelvis with contrast Eren Cr MD [facility] [place] [address] Phone: tel: fax: [address] [address] Referral ID Status Reason Start Date Expiration Date Visits Re quested Visits Authorized [id number] Closed 01/17/2024 02/15/2025 1 1 Reason for Visit * MRI/CAT/PET Scan (Routine) - Closed Specialty Diagnoses / Procedures [facility] Referred To Contact Radiology Diagnoses 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) Procedures CT chest abdomen pelvis with contrast Eren Cr MD [address] [facility] [address] [place] [address] Phone: tel: fax: [address] [address] Referral ID Status Reason Start Date Expiration Date Visits Re quested Visits Authorized [id number] Closed 01/17/2024 02/15/2025 1 1 Encounter Details Date Type Department Care Team (Latest Contact Info) Description 02/12/2024 8:42 AM CDT - 02/12/2024 11:59 PM CDT Hospital Encounter [facility] [address] [place] [address] Neuro-endocrine carcinoma (HCC); Malignant neoplasm metastatic to [...] 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 20 each 6 09/21/2019 simvastatin (ZOCOR) 20 mg tablet Take 1 tablet (20 mg total) by mouth nightly 0.9 % sodium chloride ([facility] sodium chloride 0.9%) injectionIndicati ons:line care Infuse 10 mL into a venous catheter once a week On saturday 4 0.9 % sodium chloride (sodium chloride 0.9%) 0.9% infusion 05/22/2023 4 amoxicillin 500 mg capsule TAKE 4 CAPSULES BY MOUTH 1 HOUR BEFORE APPOINTMENT 01/27/2024 4 ascorbic acid, vitamin C, 500 mg capsuleIndication s:supplement Take 1 tablet by mouth catastrophe claims supervisor before breakfast 07/04/2016 4 clotrimazole-beta methasone (LOTRISONE) cream Apply 1 Application topically daily as needed (rash) 4 coenzyme [id number] E 100-5 mg-unit capsuleIndication s:supplement Take 1 tablet by mouth catastrophe claims supervisor before breakfast 4 diphenoxylate-atr opine (LOMOTIL) [...] dose).?? Avoid Jas's Wort, grapefruit products and [place] oranges while on treatment. placed on hold [...] by: Cindy Llanes M.D. Eren Cr MD IM CT PROCEDURES [...] 01/2024 documented in this encounter Care Teams Chili Pepper Grinder Relationship Specialty Start Date End Date Julio Céasr Briseno MD PCP - General 10/01/16 Eren Cr MD Referring Physician Medical Oncology 11/25/18 Yohana Bowen MD Radiation Oncologist Radiation Oncology 11/25/18 Alejo Mi MD [address] [place] [address] Referring Physician Nephrology 03/07/23 documented as of this encounter
--- OUTSIDE RECORDS SUMMARY | 2024-06-26 01:53 | XMS_ITS | Encounter Summary ---
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) Procedures CT chest abdomen pelvis with contrast Eren Cr MD [address] [place] [address] Phone: tel: fax: [address] [address] Referral ID Status Reason Start Date Expiration Date Visits Re quested Visits Authorized [id number] Closed 01/17/2024 02/15/2025 1 1 Encounter Details Date Type Department Care Team (Late st Contact Info) Description 01/17/2024 Orders Only [facility] Oncology [address] [place] [address] Eren Cr MD [address] [facility] [address] [place] [address] Neuro-endocrine carcinoma (HCC) (Primary Dx); Malignant neoplasm [...] on file 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
--- OUTSIDE RECORDS SUMMARY | 2024-06-26 01:53 | XMS_ITS | Encounter Summary ---
Author Organization 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 Gender Identity Not on file Sexual [...] 1 tablet (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) by mouth data entry specialist before breakfast 90 tablet 3 11/28/2023 lidocaine-priloca [...] nightly 0.9 % sodium chloride ([facility] sodium chloride 0.9%) injectionIndicati ons:line care Infuse 10 mL into a venous catheter once a week On saturday 4 0.9 % sodium chloride (sodium chloride 0.9%) 0.9% infusion 05/22/2023 4 ascorbic acid, vitamin C, 500 mg capsuleIndication s:supplement Take 1 tablet by mouth data entry specialist before breakfast 07/04/2016 4 clotrimazole-beta methasone (LOTRISONE) cream Apply 1 Application topically daily as needed (rash) 4 coenzyme [id number] 100-5 mg-unit capsuleIndication s:supplement Take 1 tablet by mouth data entry specialist before breakfast 4 diphenoxylate-atr opine (LOMOTIL) 2.5-0.025 [...] and 1 hour after each dose).?? Avoid [place]'s Wort, grapefruit products and [place] oranges while on treatment. placed on hold [...] was last revised 2018. Testing performed by: [facility], [address] [place] [address] Urine 12/24/2023 3:47 PM CDT 12/24/2023 3:47 PM CDT us Eren Cr MD LAB URINE ORDERABLES Final Re sult Performing Organization Address [facility] Co de Phone Number [facility] [place] [address] * Creatinine, urine, random (12/24/2023 3:47 PM CDT) Creatinine Ur 217.4 mg/dL Comment: Interpretive Data No reference range established. Current interpretive data was last revised 2018. Testing performed by: [facility], [address] [place] [address] Urine 12/24/2023 3:47 PM CDT 12/24/2023 3:47 PM CDT us Eren Cr MD LAB URINE ORDERABLES Final Re sult Performing Organization Address City/[facility] [place] [address] documented in this encounter Visit Diagnoses Not on filedocumented in this encounter Care Teams Director Of Strategic Marketing Relationship Specialty Start Date End Date Julio César Briseno MD PCP - General 10/01/16 Eren Cr MD Referring Physician Medical Oncology 11/25/18 Yohana Bowen MD Radiation Oncologist Radiation Oncology 11/25/18 Alejo Mi MD [address] [place] [address] Referring Physician Nephrology 03/07/23 documented as of this encounter
--- OUTSIDE RECORDS SUMMARY | 2024-06-26 01:53 | XMS_ITS | Encounter Summary ---
Author Organization [facility] Address [address] [place] [address] Phone Care Team Providers Care Pony Worker Name Role Phone Julio César Briseno MD Primary Care Provider Eren Cr MD Unavailable [phone] Yohana Bowen MD Unavailable Alejo Mi MD Unavailable [phone] Encounter Details Date Type Department Care Team (Late st Contact Info) Description 03/05/2024 Orders Only [facility] Oncology [address] [place] [address] Eren Cr MD [address] [place] [address] Social History Tobacco Use Types Packs/Day Years [...] on file 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 Gender Identity Not on file Sexual Orientation Straight 02/19/2021 9: 29 AM CDT Occupation Industry Job Start Date Job End Date retired Not on file Not on file Not on file documented as of this encounter Plan of Treatment Not on file documented as of this encounter Visit Diagnoses Not on filedocumented in this encounter Care Teams Pony Worker Relationship Specialty Start Date End Date Julio César Briseno MD PCP - General 10/01/16 Eren Cr MD Referring Physician Medical Oncology 11/25/18 Yohana Bowen MD Radiation Oncologist Radiation Oncology 11/25/18 Alejo Mi MD [address] [place] [address] Referring Physician Nephrology 03/07/23 documented as of this encounter
--- OUTSIDE RECORDS SUMMARY | 2024-06-26 01:53 | XMS_ITS | Encounter Summary ---
Author Organization [facility] Address [address] [place] [address] Phone Care Team Providers Care Fnps Name Role Phone Julio César Briseno MD Primary Care Provider [phone] Eren Cr MD Unavailable [phone] Yohana Bowen MD Unavailable Alejo Mi MD Unavailable [phone] Encounter Details Date Type Department Care Team (Late st Contact Info) Description 01/17/2024 Telephone [facility] Nephrology [address] [facility] Advanced Medicine 5th [place] [address] [place] [address] Xochitl Silvestre Social History Tobacco [...] file Legal 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
--- OUTSIDE RECORDS SUMMARY | 2024-06-26 01:53 | XMS_ITS | Encounter Summary ---
Author Organization [facility] Healthcare Address [address] [place] [address] Care Team Providers Care Furniture Salesperson Name Role Phone Julio César Briseno MD Primary Care Provider [phone] Eren Cr MD Unavailable [phone] Yohana Bowen MD Unavailable Alejo Mi MD Unavailable [phone] Reason for Visit * Reason Comments Port Draw * Episode Based Medications (Routine) - Closed Specialty Diagnoses / Procedures Referred By Evelyne t Referred To Contact Diagnoses Neuro-endocrine carcinoma (HCC) Procedures study [id number] phase III cabozantinib Eren Cr MD [address] [facility] [address] [place] [address] Phone: tel: fax: 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 Gender Identity Not on file Sexual [...] TIBC 290 250 - 400 mcg/dL [facility] Transferrin saturation 26 20 - 50 % [facility] Blood 02/18/2024 12:4 8 PM CDT 02/18/2024 1:54 PM CDT Billie Raymundo VIDEO JOURNALIST LAB BLOOD ORDERABLES Final Resul t Performing Organization Address [facility] de Phone Number [facility] [place] [address] * Ferritin (02/18/2024 12:48 PM CDT) [facility] Ferritin 127 13 - 150 ng/mL Blood 02/18/2024 12:4 8 PM CDT 02/18/2024 1:54 PM CDT Billie Raymundo VIDEO JOURNALIST LAB BLOOD ORDERABLES Final Resul t Performing Organization Address [facility] [place] [address] * (ABNORMAL) Manual Differential (02/18/2024 9:45 AM CDT) [facility] Differential Auto RBC morphology Present(A ) [facility] Anisocytosis Slight(A) [facility] Platelet estimate Decreased (A) [facility] Blood 02/18/2024 9:45 AM CDT 02/18/2024 10:00 AM CDT us Eren Cr MD LAB BLOOD ORDERABLES Final Re sult Performing Organization Address [facility] de Phone Number [facility] [place] [address] * (ABNORMAL) eGFR (02/18/2024 9:45 AM CDT) [facility] eGFR 49(L) >=60 mL/min/1. 73 m2 Comment: [...] Final Re sult [facility] [place] [address] * Differential, auto (02/18/2024 9:45 AM CDT) [facility] Neutrophil abs 2.2 1.5 - 6.5 K/cumm Comment:Testing performed by : [facility], [address] [place] [address] Imm gran abs 0.0 0.0 - 0.1 K/cumm [facility] Lymphocyte abs 2.2 0.8 - 3.3 K/cumm [facility] Monocyte abs 0.4 0.2 - 0.8 K/cumm [facility] Eosinophil abs 0.2 0.0 - 0.5 K/cumm [facility] Basophil abs 0.0 0.0 - 0.1 K/cumm [facility] Neutrophil pct 43.7 % [facility] Comment: Interpretive Data Percent cell count reference ranges are not reported, since discordance with absolute values may lead to misinterpretation of CBC data. Current Interpretive Data was last revised on 2017. Imm gran pct 0.4 % [facility] Comment: Interpretive Data Percent cell count reference ranges are not reported, since discordance with absolute values may lead to misinterpretation of CBC data. Current Interpretive Data was last revised on 2017. Lymphocyte pct 43.1 % [facility] Comment: Interpretive Data Percent cell count reference ranges are not reported, since discordance with absolute values may lead to misinterpretation of CBC data. Current Interpretive Data was last revised on 2017. Monocyte pct 7.8 % [facility] Comment: Interpretive Data Percent cell count reference ranges are not reported, since discordance with absolute values may lead to misinterpretation of CBC data. Current Interpretive Data was last revised on 2017. Eosinophil pct 4.4 % [facility] Comment: Interpretive Data Percent cell count reference ranges are not reported, since discordance with absolute values may lead to misinterpretation of CBC data. Current Interpretive Data was last revised on 2017. Basophil pct 0.6 % [facility] Comment: Interpretive Data Percent cell count reference ranges are not reported, since discordance with absolute values may lead to misinterpretation of CBC data. Current Interpretive Data was last revised on 2017. Blood 02/18/2024 9:45 AM CDT 02/18/2024 10:00 AM CDT Eren Cr MD LAB BLOOD ORDERABLES Final Re sult [facility] Department of Laboratories [place], [place] [id number] * (ABNORMAL) CBC with auto differential (02/18/2024 9:45 AM CDT) Pathologist [facility] WBC 5.0 3.8 - 9.9 K/cumm Comment:Testing performed by : [facility], [address] [place] [address] Hgb 10.8(L) 11.9 - 15.5 g/dL [facility] Comment:Testing performed by : [facility], [address] [place] [address] Hct 33.4(L) 35.6 - 45.5 % [facility] Comment:Testing performed by : [facility], [address] [place] [address] Plt 124(L) 150 - 400 K/cumm [facility] Comment:Testing performed by : [facility], [address] [place] [address] MPV 10.2 9.1 - 12.3 fL [facility] RBC 3.46(L) 3.90 - 5.20 M/cumm [facility] MCV 96.5(H) 81.3 - 96.4 fL [facility] MCH 31.2 27.1 - 33.3 pg [facility] MCHC 32.3 32.3 - 35.7 g/dL [facility] RDW CV 17.2(H) 11.1 - 14.9 % [facility] RDW SD 61.1(H) 35.7 - 48.1 fL [facility] NRBC abs 0.00 0.00 - 0.01 K/cumm [facility] Blood 02/18/2024 9:45 AM CDT 02/18/2024 10:00 AM CDT Eren Cr MD LAB BLOOD ORDERABLES Final Re sult [facility] [place] [address] * (ABNORMAL) Comprehensive metabolic panel (02/18/2024 9:45 AM CDT) Sodium 140 135 - 145 mmol/L Comment:Testing performed by : [address] [address] Potassium, pl 4.3 3.3 - 4.9 mmol/L [facility] Chloride 109 97 - 110 mmol/L [facility] CO2 24 22 - 32 mmol/L [facility] Anion gap 7 2 - 15 mmol/L [facility] BUN 18 6 - 25 mg/dL [facility] Creatinine 1.17(H) 0.60 - 1.10 mg/dL [facility] Glucose 92 70 - 199 mg/dL [facility] [...] Calcium 9.6 8.5 - 10.3 mg/dL [facility] Bilirubin, total 0.4 0.1 - 1.2 mg/dL [facility] Protein, pl 5.9(L) 6.5 - 8.5 g/dL [facility] Albumin 4.0 3.5 - 5.0 g/dL [facility] Alk phos 54 40 - 130 Units/L [facility] ALT 20 7 - 45 Units/L [facility] AST 35 10 - 45 Units/L [facility] Blood 02/18/2024 9:45 AM CDT 02/18/2024 10:00 AM CDT Eren Cr MD LAB BLOOD ORDERABLES Final Re sult [facility] [place] [address] * Magnesium (02/18/2024 9:45 AM CDT) Pathologist [facility] Magnesium 1.5 1.4 - 2.5 mg/dL Comment:Testing performed by : [facility], [address] [place] [address] Blood 02/18/2024 9:45 AM CDT 02/18/2024 10:00 AM CDT Eren Cr MD LAB BLOOD ORDERABLES Final Re sult Performing Organization Address [facility] Co de Phone Number [facility] [place] [address] * Phosphorus (02/18/2024 9:45 AM CDT) Phosphorus, pl 2.6 2.3 - 4.5 mg/dL Comment:Testing performed by : [address] [address] Blood 02/18/2024 9:45 AM CDT 02/18/2024 10:00 AM CDT Eren Cr MD LAB BLOOD ORDERABLES Final Re sult Performing Organization Address [facility] [place] [address] * Lipid panel (02/18/2024 9:35 AM CDT) [...] revised on 2018. Triglycerides 111 <=149 mg/dL [facility] Comment: Interpretive Data Ages < or [...] revised on 2018. HDL 54 >=40 mg/dL [facility] Comment: Interpretive Data Ages < or [...] on 2018. LDL, calculated 65 <=129 mg/dL [facility] Comment: Interpretive Data Ages < or [...] revised on 2018. Non-HDL Cholesterol 87 mg/dL [facility] Comment: Interpretive Data Ages < or [...] Chol/HDL ratio 3 [facility] Blood 02/18/2024 9:35 AM CDT 02/18/2024 11:03 AM CDT Eren Cr MD LAB BLOOD ORDERABLES Final Re sult Performing Organization Address [facility] Co de Phone Number [facility] [place] [address] * Phosphorus (02/18/2024 9:35 AM CDT) Pathologist [facility] Phosphorus, pl 2.6 2.3 - 4.5 mg/dL Comment:Testing performed by : [facility], [address] [place] [address] Blood 02/18/2024 9:35 AM CDT 02/18/2024 9:59 AM CDT Eren Cr MD LAB BLOOD ORDERABLES Final Re sult JASON Ibrahim [facility] [place] [address] * (ABNORMAL) Vitamin D 25 hydroxy (02/18/2024 9:35 AM CDT) Vitamin D 25-OH 21(L) 30 - 80 ng/mL Blood 02/18/2024 9:35 AM CDT 02/18/2024 11:03 AM CDT Eren Cr MD LAB BLOOD ORDERABLES Final Re sult Performing Organization Address [facility] Co de Phone Number JASON Ibrahim [facility] [place] [address] * (ABNORMAL) Chromogranin A (02/18/2024 9:35 AM CDT) Pathologist [facility] Chromogranin A 3200(H) <93 ng/mL [facility] Comment: Impaired renal or hepatic function or treatment with proton pump inhibitors may result in artifactual elevations of Chromogranin A. ADDITIONAL INFORMATION The testing method is a homogeneous time-resolved immunofluorescent assay manufactured by [employer] and performed on the Tagstr Kryptor Compact Plus. ? Values obtained with [...] examination and other findings. Test Performed by: [address] [address] Latin Dancer: Carley Tony Ph.D.; CLIA# [id number] Blood 02/18/2024 9:35 AM CDT 02/18/2024 11:02 AM CDT Eren Cr MD LAB BLOOD ORDERABLES Final Re sult Performing Organization Address [facility] Phone Number [facility] [place] [address] [facility] * Protein / creatinine ratio, urine, random (02/18/2024 9:30 AM CDT) Protein, ur, quant 23.7 mg/dL Comment: Interpretive Data No reference range established. Current interpretive data was last revised 2018. Creatinine Ur 138.5 mg/dL [facility] Comment: Interpretive Data No reference range established. Current interpretive data was last revised 2018. 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
--- OUTSIDE RECORDS SUMMARY | 2024-06-26 01:53 | XMS_ITS | Encounter Summary ---
Author Organization [facility] Healthcare Address [address] [place] [address] Care Team Providers Care Battery Charger Conveyor Line Name Role Phone Julio César Briseno MD Primary Care Provider [phone] Eren Cr MD Unavailable [phone] Yohana Bowen MD Unavailable Alejo Mi MD Unavailable [phone] Reason for Visit * Reason Comments OP Infusion NS + antiemetic Encounter Details Date Type Department Care Team (Latest Contact Info) Description 03/05/2024 1:00 PM CDT - 03/05/2024 11:59 PM CDT Hospital Encounter [facility] Advanced [facility] ([facility]) [address] [place] [address] Hypophosphatemia (Primary Dx); Dehydration; Neuro-endocrine carcinoma [...] on file 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 Saturday through Saturday, 8 AM to 4:30 PM, call [phone] [facility] Oncology Physician at [facility] and ask for a member of [...] 1 tablet (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) by mouth expense analyst before breakfast 90 tablet 3 11/28/2023 lidocaine-priloca [...] by mouth nightly 0.9 % sodium chloride ([facility] sodium chloride 0.9%) injectionIndicati ons:line care Infuse 10 mL into a venous catheter once a week On saturday 4 0.9 % sodium chloride (sodium chloride 0.9%) 0.9% infusion 05/22/2023 4 amoxicillin 500 mg capsule TAKE 4 CAPSULES BY MOUTH 1 HOUR BEFORE APPOINTMENT 01/27/2024 4 ascorbic acid, vitamin C, 500 mg capsuleIndication s:supplement Take 1 tablet by mouth expense analyst before breakfast 07/04/2016 4 clotrimazole-beta methasone (LOTRISONE) cream Apply 1 Application topically daily as needed (rash) 4 coenzyme [id number] E 100-5 mg-unit capsuleIndication s:supplement Take 1 tablet by mouth expense analyst before breakfast 4 diphenoxylate-atr opine (LOMOTIL) 2.5-0.025 [...] and 1 hour after each dose).?? Avoid [place]'s Wort, grapefruit products and [place] oranges while on treatment. placed on hold [...] 03/05/2024 1:00 PM CDT Pt presented to [facility] for IV hydration and antiemetic. PAC accessed with brisk blood return. Pt mbiia1D NS, 8mg zofran, tolerated well. VSS. PAC flushed and deaccessed per protocol. D/c to home in stable condition. 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
--- OUTSIDE RECORDS SUMMARY | 2024-06-26 01:53 | XMS_ITS | Encounter Summary ---
Author Organization [facility] [employer] of [facility] Address [address] [place] [address] Phone Care Team Providers Care Drop Hammer Operator Helper Name Role Phone Julio César Briseno MD Primary Care Provider Eren Cr MD Unavailable [phone] Yohana Bowen MD Unavailable Alejo Mi MD Unavailable [phone] Encounter Details Date Type Department Care Team (Late st Contact Info) Description 03/04/2024 Telephone [facility] Bone Marrow Transplant [address] 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 I let her know that [...] Family is going to reach out to [place] with Dr Cr in am to see about getting scheduled forsome IVF. Pt and daughter verbalized understanding and agreeable to recommendations. Primary oncologist team updated via [employer]. Sunshine George, RN documented in this encounter Plan of Treatment Not on file documented as of this encounter Visit Diagnoses Not on filedocumented in this encounter Care Teams Drop Hammer Operator Helper Relationship Specialty Start Date End Date Julio César Briseno MD PCP - General 10/01/16 Eren Cr MD Referring Physician Medical Oncology 11/25/18 Yohana Bowen MD Radiation Oncologist Radiation Oncology 11/25/18 Alejo Mi MD [address] [place] [address] Referring Physician Nephrology 03/07/23 documented as of this encounter
--- OUTSIDE RECORDS SUMMARY | 2024-06-26 01:53 | XMS_ITS | Encounter Summary ---
Author Organization [facility] Address [address] [place] [address] Phone Care Team Providers Care Senior Software Development Manager Name Role Phone Julio César Briseno MD Primary Care Provider [phone] Eren Cr MD Unavailable [phone] Yohana Bowen MD Unavailable TopangaAlejo Ramos MD Unavailable [phone] Reason for Visit * Episode Based Medications (Routine) - Closed Specialty Diagnoses / Procedures Referred By Contac t Referred To Contact Diagnoses Neuro-endocrine carcinoma (HCC) Procedures study [id number] phase III cabozantinib Eren Cr MD [address] [place] [address] Phone: tel: fax: [facility] [address] [facility] 7th [place] [address] Phone: tel: Referral ID Status Reason Start Date Expiration Date Visits Re quested Visits Authorized [id number] Closed 06/21/2021 06/26/2024 1 99 Encounter Details Date Type Department Care Team (Latest Contact Info) Description 12/25/2023 10:00 AM CDT Research Med Pick-Up/CTRU Backpackers Manager [facility] Oncology [address] [place] [address] Neuro-endocrine carcinoma (HCC) (Primary Dx) Social History [...] file 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 Gender Identity Not on file Sexual [...] Ordered Date First Ordered Date [facility] cabozantinib (2018-02-122/[id number]) tablet 20 mg 1 12/25/2023 Nursing Count Last Ordered Date First Orde red Date ONCBCN OK TO TREAT 1 12/25/2023 ONCBCN STUDY COMMUNICATION 1 12/25/2023 ONCBCN TREATMENT PARAMETERS 1 12/25/2023 Appointment Requests Count Last Ordered Date Fi rst Ordered Date ONCBCN TAKE HOME STUDY DRUG APPT 1 12/25/19 24 documented in this encounter Care Teams Senior Software Development Manager Relationship Specialty Start Date End Date Julio César Briseno MD PCP - General 10/01/16 Eren Cr MD Referring Physician Medical Oncology 11/25/18 Yohana Bowen MD Radiation Oncologist Radiation Oncology 11/25/18 Alejo Mi MD [id number] [place] [address] Referring Physician Nephrology 03/07/23 documented as of this encounter
--- OUTSIDE RECORDS SUMMARY | 2024-06-26 01:53 | XMS_ITS | Encounter Summary ---
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) Procedures [place] OCTREOTIDE INJECTION, DEPOT Octreotide 28 Day Cycles - Carcinoid Eren Cr MD [address] [facility] [address] [place] [address] Phone: tel: fax: [facility] [address] [place] [address] Phone: tel: fax: Referral ID Status Reason Start Date Expiration Date V isits Requested Visits Authorized [id number] Authorized 11/28/2017 02/05/2025 1 150 Encounter Details Date Type Department Care Team (Late st Contact Info) Description 01/21/2024 12:30 PM CDT Infusion [facility] [address] [place] [address] 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 [...] First Orde red Date ONCBCN NURSING COMMUNICATION [id number] 1 0 01/21/2024 PHYSICIAN COMMUNICATION ORDER 1 01/21/2024 Appointment Requests Count Last Ordered Date Fi rst Ordered Date ONCBCN INJECTION APPOINTMENT REQUEST 1 01/05 documented in this encounter Care Teams Lead Advisor Relationship Specialty Start Date End Date Julio César Briseno MD PCP - General 10/01/16 Eren Cr MD Referring Physician Medical Oncology 11/25/18 Yohana Bowen MD Radiation Oncologist Radiation Oncology 11/25/18 Alejo Mi MD [address] [address] Referring Physician Nephrology 03/07/23 documented as of this encounter
--- OUTSIDE RECORDS SUMMARY | 2024-06-26 01:53 | XMS_ITS | Encounter Summary ---
Author Organization [facility] [employer] [facility] Address [address] [place] [address] Phone Care Team Providers Care Front End Web Developer Name Role Phone Julio César Briseno MD Primary Care Provider Eren Cr MD Unavailable [phone] Yohana Bowen MD Unavailable Alejo Mi MD Unavailable Encounter Details Date Type Department Care Team (Late st Contact Info) Description 01/17/2024 Telephone [facility] Nephrology [address] [facility] Advanced Medicine 5th [place] [address] [place] [address] Alejo Mi MD [facility] [place], [place] [id number] Social History Tobacco Use Types Packs/Day Years [...] on file 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
--- OUTSIDE RECORDS SUMMARY | 2024-06-26 01:53 | XMS_ITS | Encounter Summary ---
Author Organization [facility] [facility] Address [address] [place] [address] Phone Care Team Providers Care Wool Washing Machine Operator Name Role Phone Julio César Briseno MD Primary Care Provider Eren Cr MD Unavailable Yohana Bowen MD Unavailable Alejo Mi MD Unavailable [phone] Encounter Details Date Type Department Care Team (Late st Contact Info) Description 01/14/2024 2:00 PM CDT Office Visit [facility] Nephrology [facility] Advanced Medicine 5th [place] [address] [place] [address] Alejo Mi MD [address] [place] [address] [address] [place] [address] Acute cystitis with hematuria (Primary [...] on file Legal Sex Female 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 Since last seen, she has [...] 1 capsule (60 mg total) INV-[facility] cabozantinib/placebo (/[id number]) 20 mg tablet Take 1 tablet (20 mg total) byututh nightly Take on an empty stomach (no food for 2 hours before and 1 hour after each dose). Avoid [place]'s Wort, grapefruit products and [place] oranges while on treatment. placed on hold 09/26/22 for covid levothyroxine (SYNTHROID) 100 mcg tablet Take 1 tablet (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) by mouth swahili teacher before breakfast 90 tablet 3 lidocaine-prilocaine (lidocaine-prilocaine) [...] sodium chloride ([facility] sodium chloride 0.9%) injection Infuse 10 mL into a venous catheter once a week On saturday (Patient not taking: Reported on 01/14/2024) 0.9 % sodium chloride (sodium chloride 0.9%) 0.9% infusion (Patient not taking: Reported on 01/14/2024) ascorbic acid, vitamin C, 500 mg capsule Take 1 tablet by mouth swahili teacher before breakfast (Patient not taking: Reported on 12/24/2023) cholecalciferol (VITAMIN D-3) 1,000 unit Take 1 tablet/capsule (1,000 Units total) by mouth daily (Patient taking differently: Take 1 tablet/capsule (1,000 Units total) by mouth every morning) 90 tablet/capsule 3 ciprofloxacin (CIPRO) 500 mg tablet Take 1 tablet (500 mg total) by mouth 2 (two) times a day for 7days 14 tablet 0 coenzyme [id number] E 100-5 mg-unit capsule Take 1 tablet by mouth swahili teacher before breakfast (Patient not taking: Reported on [...] venous catheter once a week Patient to [id number] of Normal Saline via CADD Coreas pump [...] BS normal. No masses SKIN: No rash ENVELOPE FOLDING MACHINE ADJUSTER: Alert Ox3. No focal motor deficits PSYCH: Pleasant, cooperative, appropriate affect. MSK: No joint swelling or tenderness LABORATORY DATA Sodium Date Value Ref Range Status 12/24/2023 140 135 - 145 mmol/L Final Comment: Testing performed by: [facility], [address] [place] [address] 11/26/2023 137 135 - 145 mmol/L Final Comment: Testing performed by: [facility], [address] [place] [address] 11/13/2023 139 135 - 145 mmol/L Final Comment: Testing performed by: [facility], [address] [place] [phone] Potassium, pl Date Value Ref Range Status 12/24/2023 4.2 3.3 - 4.9 mmol/L Final 11/26/2023 4.3 3.3 - 4.9 mmol/L Final 11/13/2023 4.2 3.3 - 4.9 mmol/L Final Comment: Testing performed by: [facility], [address] [place] [phone] CO2 Date Value Ref Range Status 12/24/2023 21 (L) 22 - 32 mmol/L Final 11/26/2023 26 22 - 32 mmol/L Final 11/13/2023 25 22 - 32 mmol/L Final Comment: Testing performed by: [facility], [address] [place] [phone] BUN Date Value Ref Range Status 12/24/2023 17 6 - 25 mg/dL Final 11/26/2023 12 6 - 25 mg/dL Final 11/13/2023 13 6 - 25 mg/dL Final Comment: Testing performed by: [facility], [address] [place] [phone] Creatinine Date Value Ref Range Status 12/24/2023 1.32 (H) 0.60 - 1.10 mg/dL Final 11/26/2023 1.21 (H) 0.60 - 1.10 mg/dL Final 11/13/2023 1.03 0.60 - 1.10 mg/dL Final Comment: Testing performed by: [facility], [address] [place] [phone] Albumin Date Value Ref Range Status 12/24/2023 3.9 3.5 - 5.0 g/dL Final 11/26/2023 4.2 3.5 - 5.0 g/dL Final 11/13/2023 3.7 3.5 - 5.0 g/dL Final Comment: Testing performed by: [facility], [address] [place] [phone] Calcium Date Value Ref Range Status 12/24/2023 9.5 8.5 - 10.3 mg/dL Final 11/26/2023 10.1 8.5 - 10.3 mg/dL Final 11/13/2023 9.6 8.5 - 10.3 mg/dL Final Comment: Testing performed by: [facility], [address] [place] [phone] Phosphorus, pl Date Value Ref Range Status 12/24/2023 2.6 2.3 - 4.5 mg/dL Final Comment: Testing performed by: [facility], [address] [place] [id number] 11/26/2023 2.8 2.3 - 4.5 mg/dL Final Comment: Testing performed by: [facility], [address] [place] [address] 10/29/2023 2.3 2.3 - 4.5 mg/dL Final Comment: Testing performed by: [facility], [address] [place] [address] PTH Date Value Ref Range Status 10/18/2022 [...] 15.5 g/dL Final Comment: Testing performed by: [facility], [address] [place] [address] 11/26/2023 10.7 (L) 11.9 - 15.5 g/dL Final Comment: Testing performed by: [facility], [address] [place] [address] 11/13/2023 11.0 (L) 12.1 - 15.1 g/dL Final Comment: Testing performed by: [facility], [address] [place] [phone] Iron Date Value Ref Range Status 11/15/2022 [...] of Klebsiella pneumoniae (.) Organism [facility] Urine, bladder 01/14/2024 5: 07 PM CDT 01/14/2024 5:50 PM CDT Narrative [facility] - 01/16/2024 10:36 AM CDT Testing performed by [facility] ([phone]) Organism Antibiotic Method Susceptibility Klebsiella pneumoniae Ampicillin [...] - GENER AL ORDERABLES Final Result [facility] Department [place] [address] * (ABNORMAL) POCT urinalysis dipstick (01/14/2024 4:46 PM CDT) Pathologist [facility] Glucose, ur, POC Negative Negative MG/DL Bilirubin, ur, POC Negative Negative, Small, Moderate, Large Ketones, ur, POC Negative Negative Specific [place], POC 1.025 1.003 - 1.030 Blood, ur, POC Moderate(A) Negative pH, ur, POC 5.5 5.0 - 8.0 Protein, ur, POC Trace(A) Negative Urobilinogen, urine, POC 0.2 0.2 - 1.0 mg/dL Nitrite, ur, POC Negative Negative Leukocytes, ur, POC Small(A) Negative Lot Number [id number] Urine 01/14/2024 4:46 PM CDT us Alejo [...] 05/21/2024 added in this encounter Care Teams Wool Washing Machine Operator Relationship Specialty Start Date End Date Julio César Briseno MD PCP - General 10/01/16 Eren Cr MD Referring Physician Medical Oncology 11/25/18 Yohana Bowen MD Radiation Oncologist Radiation Oncology 11/25/18 Alejo Mi MD [address] [address] Referring Physician Nephrology 03/07/23 documented as of this encounter
--- OUTSIDE RECORDS SUMMARY | 2024-06-26 01:53 | XMS_ITS | Encounter Summary ---
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) Procedures [place] OCTREOTIDE INJECTION, DEPOT Octreotide 28 Day Cycles - Carcinoid Eren Cr MD [address] [place] [address] Phone: tel: fax: [address] [address] Phone: tel: fax: Referral ID Status Reason Start Date Expiration Date V isits Requested Visits Authorized [id number] Authorized 11/28/2017 02/05/2025 1 150 Encounter Details Date Type Department Care Team (Late st Contact Info) Description 02/18/2024 11:15 AM CDT Infusion [facility] [address] [facility] [place] [address] 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 female [...] Ordered Date First Ordered Date [facility] cabozantinib (2017-08-122/[id number]) tablet 20 mg 1 02/18/2024 Nursing Count Last Ordered Date First Orde red Date ONCBCN NURSING COMMUNICATION [id number] 1 0 02/18/2024 PHYSICIAN COMMUNICATION ORDER 1 02/18/2024 Appointment Requests Count Last Ordered Date Fi rst Ordered Date ONCBCN INJECTION APPOINTMENT REQUEST 1 02/05 documented in this encounter Care Teams Nursing Manager Relationship Specialty Start Date End Date Julio César Briseno MD PCP - General 10/01/16 Eren Cr MD Referring Physician Medical Oncology 11/25/18 Yohana Bowen MD Radiation Oncologist Radiation Oncology 11/25/18 Alejo Mi MD [address] [place] [address] Referring Physician Nephrology 03/07/23 documented as of this encounter
--- OUTSIDE RECORDS SUMMARY | 2024-06-26 01:53 | XMS_ITS | Encounter Summary ---
Author Organization [facility] Address [address] [place] [address] Phone Care Team Providers Care Panelboard Operator Name Role Phone Julio César Briseno MD Primary Care Provider Eren Cr MD Unavailable [phone] Yohana Bowen MD Unavailable Alejo Mi MD Unavailable [phone] Encounter Details Date Type Department Care Team (Latest Contact Info) Description 01/24/2024 3:30 PM CDT Office Visit 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 Authorizing Provider 0.9 % sodium chloride ([facility] sodium chloride 0.9%) injection Infuse 10 mL into a venous catheter once a week On saturday Yes Levon Kee MD ascorbic acid, vitamin C, 500 mg capsule Take 1 tablet by mouth label fuser tender before breakfast 07/04/16 Yes Levon Kee MD cholecalciferol (VITAMIN D-3) 1,000 unit Take 1 tablet/capsule (1,000 Units total) by mouth daily Patient taking differently: Take 1 tablet/capsule (1,000 Units total) by mouth every morning 11/16/22 11/16/23 Yes Alejo Mi MD clotrimazole-betamethasone (LOTRISONE) cream Apply 1 Application topically daily as needed (rash) Yes Levon Kee MD coenzyme F45-emcijyb E 100-5 mg-unit capsule Take 1 tablet by mouth label fuser tender before breakfast Yes Levon Kee MD denosumab [...] -Heparin to flush Yes Levon Kee MD [facility] cabozantinib/placebo (/[id number]) 20 mg tablet Take 1 tablet (20 mg total) bymeuth nightly Take on an empty stomach (no food for 2 hours before and 1 hour after each dose). Avoid Jas's Wort, grapefruit products and [place] oranges while on treatment. placed on hold 09/26/22 for covid 01/29/22 Yes Eren Cr MD levothyroxine (SYNTHROID) 88 mcg tablet Take 1 tablet (88 mcg total) by mouth label fuser tender before breakfast Patient taking differently: Take 1 tablet (88 mcg total) by mouth label fuser tender before breakfast 10/12/22 Yes Eren Cr MD [...] 10/18/22 Yes Eren Cr MD ostomy supplies [facility] Patient has colostomy and needs Cavilon 3M skin barrier film to manage. 09/21/19 Yes Greyson Reeves MD simvastatin (ZOCOR) 20 mg tablet Take 1 tablet (20 mg total) by mouth nightly Yes Provider, MD Levon sodium chloride 0.9 % solution Infuse 1,000 mL into a venous catheter once a week Patient to [id number] of Normal Saline via CADD Coreas pump [...] post op 02/05/23 Nasim Rojas MD HYDROcodone-acetaminophen ([place]) 5-325 mg per tablet Take 1 tablet [...] needed for rhinitis or allergies [facility] cabozantinib/placebo (/[id number]) 20 mg tablet Take 1 tablet (20 mg total) bymouth nightly Take on an empty stomach (no food for 2 hours before and 1 hour after each dose). Avoid [place]'s Wort, grapefruit products and [place] oranges while on treatment. placed on hold 09/26/22 for covid levothyroxine (SYNTHROID) 100 mcg tablet Take 1 tablet (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) by mouth label fuser tender before breakfast 90 tablet 3 lidocaine-prilocaine (lidocaine-prilocaine) [...] by mouth nightly 0.9 % sodium chloride ([facility] sodium chloride 0.9%) injection Infuse 10 mL into a venous catheter once a week On saturday (Patient not taking: Reported on 01/14/2024) 0.9 % sodium chloride (sodium chloride 0.9%) 0.9% infusion (Patient not taking: Reported on 01/14/2024) ascorbic acid, vitamin C, 500 mg capsule Take 1 tablet by mouth label fuser tender before breakfast (Patient not taking: Reported on 12/24/2023) clotrimazole-betamethasone (LOTRISONE) cream Apply 1 Application topically daily as needed (rash) (Patient not taking: Reported on 01/24/2024) coenzyme K63-[id number] E 100-5 mg-unit capsule Take 1 tablet by mouth label fuser tender before breakfast (Patient not taking: Reported on [...] venous catheter once a week Patient to [id number] of Normal Saline via CADD Coreas pump [...] Route Frequency Provider Last Rate Last Admin [facility] cabozantinib (/[id number]) tablet 20 mg 20 mg oral Daily Raymundo, Billie, LEAD SHAREPOINT DEVELOPER L-arginine 1.25%/L-lysine 1.25% infusion 1,000 mL 1,000 [...] Patient seen and plan discussed with Dr. Monosn. Leila Gaytan MD Cosigned by Billie Monson [...] use documented in this encounter Care Teams Panelboard Operator Relationship Specialty Start Date End Date Julio César Briseno MD PCP - General 10/01/16 Eren Cr MD Referring Physician Medical Oncology 11/25/18 Yohana Bowen MD Radiation Oncologist Radiation Oncology 11/25/18 Alejo Mi MD [address] [place] [address] Referring Physician Nephrology 03/07/23 documented as of this encounter
--- OUTSIDE RECORDS SUMMARY | 2024-06-26 01:54 | XMS_ITS | Encounter Summary ---
Author Organization [facility] Address [address] [place] [address] Phone Care Team Providers Care Assistant Professor Name Role Phone Julio César Briseno MD Primary Care Provider [phone] Eren Cr MD Unavailable [phone] Yohana Bowen MD Unavailable HollisAlejo Ramos MD Unavailable [phone] 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) Procedures [place] OCTREOTIDE INJECTION, DEPOT Octreotide 28 Day Cycles - Carcinoid Eren Cr MD [address] [facility] [address] [place] [address] Phone: tel: fax: [facility] [address] [address] Phone: tel: fax: Referral ID Status Reason Start Date Expiration Date V isits Requested Visits Authorized [id number] Authorized 11/28/2017 02/05/2025 1 150 Encounter Details Date Type Department Care Team (Late st Contact Info) Description 10/29/2023 1:15 PM CDT Infusion [facility] Oncology [address] [place] [address] Neuroendocrine carcinoma (HCC); Malignant neoplasm metastatic to [...] file Legal 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
--- OUTSIDE RECORDS SUMMARY | 2024-06-26 01:54 | XMS_ITS | Encounter Summary ---
Author Organization [facility] Address [address] [place] [address] Phone Care Team Providers Care Contracting Support Specialist Name Role Phone Julio César Briseno MD Primary Care Provider Eren Cr MD Unavailable [phone] Yohana Bowen MD Unavailable Alejo Mi MD Unavailable [phone] Encounter Details Date Type Department Care Team (Late st Contact Info) Description 09/27/2023 Orders Only [facility] Oncology [address] [place] [address] Eren Cr MD [address] [place] [address] Neuro-endocrine carcinoma (HCC) (Primary Dx); Neuroendocrine carcinoma [...] file Legal Sex Female 2: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
--- OUTSIDE RECORDS SUMMARY | 2024-06-26 01:54 | XMS_ITS | Encounter Summary ---
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) Procedures ID DENOSUMAB INJECTION DENOSUMAB (XGEVA) Eren Cr MD [address] [facility] [address]C [address] [place] [address] Phone: tel: fax: [facility] at [facility] [address] [facility] Advanced Medicine 7th [place] [address] Phone: tel: Referral ID Status Reason Start Date Expiration Date V isits Requested Visits Authorized [id number] Authorized 03/02/2019 10/06/2024 1 60 Encounter Details Date Type Department Care Team (Late st Contact Info) Description 10/29/2023 11:00 AM CDT Infusion [facility] [address] [place] [address] Neuro-endocrine carcinoma (HCC) (Primary Dx); Neuroendocrine carcinoma [...] on file Legal Sex Female 2: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 [...] Self Discharged To: Home Oncology Nursing Note [facility] La Chung is a 72 y.o. [...] First Orde red Date ONCBCN NURSING COMMUNICATION [id number] 1 0 10/29/2023 PHYSICIAN COMMUNICATION ORDER 1 10/29/2023 Appointment Requests Count Last Ordered Date Fi rst Ordered Date ONCBCN INFUSION APPT REQUEST 1 10/29/2023 documented in this encounter Care Teams Hospital Medical Assistant Relationship Specialty Start Date End Date Julio César Briseno MD PCP - General 10/01/16 Eren Cr MD Referring Physician Medical Oncology 11/25/18 Yohana Bowen MD Radiation Oncologist Radiation Oncology 11/25/18 Alejo Mi MD [address] [address] Referring Physician Nephrology 03/07/23 documented as of this encounter
--- OUTSIDE RECORDS SUMMARY | 2024-06-26 01:54 | XMS_ITS | Encounter Summary ---
Author Organization [facility] Address [address] [place] [address] Phone Care Team Providers Care Mainframe Systems Engineer Name Role Phone Julio César Briseno MD Primary Care Provider Eren Cr MD Unavailable [phone] Yohana Bowen MD Unavailable Alejo Mi MD Unavailable [phone] Reason for Visit * Reason Comments OP Infusion Encounter Details Date Type Department Care Team (Late st Contact Info) Description 11/26/2023 1:00 PM CDT Infusion 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 [...] First Orde red Date ONCBCN NURSING COMMUNICATION [id number] 1 11/25 Appointment Requests Count Last Ordered Date Fi rst Ordered Date INFUSION APPT REQUEST 90 MIN 1 11/26/2023 documented in this encounter Care Teams Mainframe Systems Engineer Relationship Specialty Start Date End Date Julio César Briseno MD PCP - General 10/01/16 Eren Cr MD Referring Physician Medical Oncology 11/25/18 Yohana Bowen MD Radiation Oncologist Radiation Oncology 11/25/18 Alejo Mi MD [address] [place] [address] Referring Physician Nephrology 03/07/23 documented as of this encounter
--- OUTSIDE RECORDS SUMMARY | 2024-06-26 01:54 | XMS_ITS | Encounter Summary ---
Author Organization [facility] Address [address] [place] [address] Phone Care Team Providers Care Continuous Process Coffee Roaster Name Role Phone Julio César Briseno MD Primary Care Provider [phone] Eren Wu MD Unavailable [phone] Yohana Bowen MD Unavailable Lance CreekAlejo Ramos MD Unavailable [phone] Reason for Visit * Episode Based Medications (Routine) - Closed Specialty Diagnoses / Procedures Referred By Contac t Referred To Contact Diagnoses Neuro-endocrine carcinoma (HCC) Procedures study [id number] phase III cabozantinib Eren Wu MD [address] [facility] [address]C [address] [place] [address] Phone: tel: fax: [facility] at [facility] and [facility] [address] [facility] Advanced Medicine 7th [place] [address] Phone: tel: Referral ID Status Reason Start Date Expiration Date Visits Re quested Visits Authorized [id number] Closed 06/21/2021 06/26/2024 1 99 Encounter Details Date Type Department Care Team (Late st Contact Info) Description 11/26/2023 11:30 AM CDT Office Visit [facility] Oncology [address] [place] [address] Eren Wu MD [address] [facility] [address] [place] [address] Neuro-endocrine carcinoma (HCC) (Primary Dx); Malignant neoplasm [...] on file Legal Sex Female 2:41 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 Greyson Reeves. Biopsy [...] Instructions 0.9 % sodium chloride ([facility] sodium chloride 0.9%) injection 10 mL, intravenous, Weekly, On saturday 0.9 % sodium chloride (sodium chloride 0.9%) 0.9% infusion amLODIPine (NORVASC) 5 mg tablet ascorbic acid, vitamin C, 500 mg capsule 1 tablet, oral, Daily (early AM) cholecalciferol (VITAMIN D-3) 1,000 Units, oral, Daily clotrimazole-betamethasone (LOTRISONE) cream Apply 1 Application topically daily as needed (rash) coenzyme W43-nwoubil E 100-5 mg-unit capsule 1 tablet, oral, [...] Weekly, Fluids every - Heparin to flush [facility] cabozantinib/placebo (/[id number]) 20 mg, oral, Nightly, Take on an empty stomach (no food for 2 hours before and 1 hour after each dose). Avoid [place]'s Wort, grapefruit products and Ninole oranges while on treatment. placed on hold [...] Exam Vitals reviewed. Exam conducted with a irrigator present. Constitutional: General: She is not in [...] Tumor Markers Chromogranin A <93 ng/mL 1970 [id number] RADIOGRAPHIC/DIAGNOSTIC REVIEW: CT chest abdomen pelvis with [...] D checked 06/11 16. Pt on ergocalciferol 20574 units weekly. -- she states she is [...] 024 documented in this encounter Care Teams Continuous Process Coffee Roaster Relationship Specialty Start Date End Date Julio César Briseno MD PCP - General 10/01/16 Eren Wu MD Referring Physician Medical Oncology 11/25/18 Yohana Bowen MD Radiation Oncologist Radiation Oncology 11/25/18 Alejo Mi MD [address] [place] [address] Referring Physician Nephrology 03/07/23 documented as of this encounter
--- OUTSIDE RECORDS SUMMARY | 2024-06-26 01:54 | XMS_ITS | Encounter Summary ---
Author Organization [facility] Address [address] [place] [address] Phone Care Team Providers Care Microsoft Dynamics Developer Name Role Phone Julio César Briseno MD Primary Care Provider Eren Cr MD Unavailable Yohana Bowen MD Unavailable Alejo Mi MD Unavailable [phone] Encounter Details Date Type Department Care Team (Late st Contact Info) Description 09/27/[address] 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 Requested pt to please call if any questions or concerns [phone]. documented in this encounter Plan of Treatment Not on file documented as of this encounter Visit Diagnoses Not on filedocumented in this encounter Care Teams Microsoft Dynamics Developer Relationship Specialty Start Date End Date Julio César Briseno MD PCP - General 10/01/16 Eren Cr MD Referring Physician Medical Oncology 11/25/18 Yohana Bowen MD Radiation Oncologist Radiation Oncology 11/25/18 Alejo Mi MD [address] [address] Referring Physician Nephrology 03/07/23 documented as of this encounter
--- OUTSIDE RECORDS SUMMARY | 2024-06-26 01:54 | XMS_ITS | Encounter Summary ---
Author Organization [facility] Address [address] [place] [address] Phone Care Team Providers Care Mine Utility Operator Name Role Phone Julio César Briseno MD Primary Care Provider [phone] Eren Cr MD Unavailable [phone] Yohana Bowen MD Unavailable [place] Ramos MD Unavailable [phone] Reason for Visit * Episode Based Medications (Routine) - Closed Specialty Diagnoses / Procedures Referred By Contac t Referred To Contact Diagnoses Neuro-endocrine carcinoma (HCC) Procedures study [id number] phase III cabozantinib Eren Cr MD [address] [place] [address] Phone: tel: fax: [facility] at [facility] and [facility] [address] [facility] 7th [place] [address] Phone: tel: Referral ID Status Reason Start Date Expiration Date Visits Re quested Visits Authorized [id number] Closed 06/21/2021 06/26/2024 1 99 Encounter Details Date Type Department Care Team (Latest Contact Info) Description 10/29/2023 1:00 PM CDT Research Med Pick-Up/CTRU Print Developer Automatic [facility] Oncology [address] [place] [address] Neuro-endocrine carcinoma (HCC) (Primary Dx) Social History [...] file 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 Gender Identity Not on file Sexual [...] Ordered Date First Ordered Date [facility]V-[facility] cabozantinib (2018-02-122/[id number]) tablet 20 mg 1 10/29/2023 Nursing Count Last Ordered Date First Orde red Date ONCBCN STUDY COMMUNICATION 1 10/29/2023 ONCBCN TREATMENT PARAMETERS 1 10/29/2023 Appointment Requests Count Last Ordered Date Fi rst Ordered Date ONCBCN TAKE HOME STUDY DRUG APPT 1 10/29/19 24 documented in this encounter Care Teams Mine Utility Operator Relationship Specialty Start Date End Date Julio César Briseno MD PCP - General 10/01/16 Eren Cr MD Referring Physician Medical Oncology 11/25/18 Yohana Bowen MD Radiation Oncologist Radiation Oncology 11/25/18 Alejo Mi MD [address] [place] [address] Referring Physician Nephrology 03/07/23 documented as of this encounter
--- OUTSIDE RECORDS SUMMARY | 2024-06-26 01:54 | XMS_ITS | Encounter Summary ---
Author Organization [facility] Address [address] [place] [address] Phone Care Team Providers Care Seat Mender Name Role Phone Julio César Briseno MD Primary Care Provider [phone] Eren Cr MD Unavailable [phone] Yohana Bowen MD Unavailable EmelleAlejo Ramos MD Unavailable Reason for Visit * Episode Based Medications (Routine) - Closed Specialty Diagnoses / Procedures Referred By Contac t Referred To Contact Diagnoses Neuro-endocrine carcinoma (HCC) Procedures study [id number] phase III cabozantinib Eren Cr MD [address] [place] [address] Phone: tel: fax: [facility] at [facility] and [facility] [address] [facility] 7th [place] [address] Phone: tel: Referral ID Status Reason Start Date Expiration Date Visits Re quested Visits Authorized [id number] Closed 06/21/2021 06/26/2024 1 99 Encounter Details Date Type Department Care Team (Latest Contact Info) Description 09/26/2023 3:30 PM CDT Research Med Pick-Up/CTRU [facility] Oncology [address] [place] [address] Neuro-endocrine carcinoma (HCC) (Primary Dx) Social History [...] on file 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 Gender Identity Not on file Sexual Orientation [...] Ordered Date First Ordered Date [facility] cabozantinib (2018-02-122/[id number]) tablet 20 mg 1 09/26/2023 Nursing Count Last Ordered Date First Orde red Date ONCBCN PROVIDER COMMUNICATION 10 09/26/19 ONCBCN STUDY COMMUNICATION 1 09/26/2023 ONCBCN TREATMENT PARAMETERS 1 09/26/2023 Appointment Requests Count Last Ordered Date Fi rst Ordered Date ONCBCN TAKE HOME STUDY DRUG APPT 1 09/26/19 24 documented in this encounter Care Teams Seat Mender Relationship Specialty Start Date End Date Julio César Briseno MD PCP - General 10/01/16 Eren Cr MD Referring Physician Medical Oncology 11/25/18 Yohana Bowen MD Radiation Oncologist Radiation Oncology 11/25/18 Alejo Mi MD [id number] [place] [address] Referring Physician Nephrology 03/07/23 documented as of this encounter
--- OUTSIDE RECORDS SUMMARY | 2024-06-26 01:54 | XMS_ITS | Encounter Summary ---
Author Organization [facility] Address [address] [place] [address] Phone Care Team Providers Care Frame Table Operator Name Role Phone Julio César Briseno MD Primary Care Provider [phone] Eren Cr MD Unavailable [phone] Yohana Bowen MD Unavailable Alejo Mi MD Unavailable [phone] Encounter Details Date Type Department Care Team (Late st Contact Info) Description 11/26/2023 Orders Only [facility] Oncology [address] [place] [address] Eren Cr MD [address] [place] [address] Vitamin D deficiency (Primary Dx) Social History [...] on file 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
--- OUTSIDE RECORDS SUMMARY | 2024-06-26 01:54 | XMS_ITS | Encounter Summary ---
Author Organization [facility] Address [address] [place] [address] Phone Care Team Providers Care Claims Analyst Name Role Phone Julio César Briseno MD Primary Care Provider Eren Cr MD Unavailable [phone] Yohana Bowen MD Unavailable Alejo Mi MD Unavailable [phone] Encounter Details Date Type Department Care Team (Late st Contact Info) Description 10/16/2023 3:00 PM CDT Infusion [facility] Oncology [address] [facility] Advanced Medicine 7th [place] [address] Dehydration (Primary Dx); Neuroendocrine carcinoma [...] on file 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
--- OUTSIDE RECORDS SUMMARY | 2024-06-26 01:54 | XMS_ITS | Encounter Summary ---
Author Organization [facility] Address [address] [place] [address] Phone Care Team Providers Care Rn Case Management Name Role Phone Julio César Briseno MD Primary Care Provider [phone] Eren Cr MD Unavailable [phone] Yohana Bowen MD Unavailable [place]jo Ramos MD Unavailable [phone] Reason for Visit * Reason Comments Injections Sandostatin/XGeva * Episode Based Medications (Routine) - Authorized Specialty Diagnoses / Procedures Referred By Contac t Referred To Contact Oncology Diagnoses Neuroendocrine carcinoma (HCC) Malignant neoplasm metastatic to liver (HCC) Procedures [place] OCTREOTIDE INJECTION, DEPOT Octreotide 28 Day Cycles - Carcinoid Eren Cr MD [address] [facility] [address] [place] [address] Phone: tel: fax: [facility] Cancer [address] [address] Phone: tel: fax: Referral ID Status Reason Start Date Expiration Date V isits Requested Visits Authorized [id number] Authorized 11/28/2017 02/05/2025 1 150 Encounter Details Date Type Department Care Team (Late st Contact Info) Description 11/26/2023 2:30 PM CDT Infusion [facility] Oncology [address] [place] [address] 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 [...] file 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 Gender Identity Not on file Sexual Orientation [...] First Orde red Date ONCBCN NURSING COMMUNICATION [id number] 1 0 11/26/2023 PHYSICIAN COMMUNICATION ORDER 1 11/26/2023 Appointment Requests Count Last Ordered Date Fi rst Ordered Date ONCBCN INJECTION APPOINTMENT REQUEST 11/06 documented in this encounter Care Teams Rn Case Management Relationship Specialty Start Date End Date Julio César Briseno MD PCP - General 10/01/16 Eren Cr MD Referring Physician Medical Oncology 11/25/18 Yohana Bowen MD Radiation Oncologist Radiation Oncology 11/25/18 Alejo Mi MD [address] [place] [address] Referring Physician Nephrology 03/07/23 documented as of this encounter
--- OUTSIDE RECORDS SUMMARY | 2024-06-26 01:54 | XMS_ITS | Encounter Summary ---
Author Organization [facility] Healthcare Address [address] [place] [address] Care Team Providers Care Vp Global Name Role Phone Julio César Briseno MD Primary Care Provider [phone] Eren Cr MD Unavailable [phone] Yohana Bowen MD Unavailable Alejo Mi MD Unavailable [phone] Reason for Visit * Reason Comments OP Infusion NS Encounter Details Date Type Department Care Team (Latest Contact Info) Description 10/02/2023 10:58 AM CDT - 10/02/2023 11:59 PM CDT Hospital Encounter [facility] ([facility]) [address] [place] [address] Dehydration (Primary Dx); Neuroendocrine carcinoma (HCC); Malignant [...] file 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 Saturday through Saturday, 8 AM to 4:30 PM, call [phone] [facility] Oncology Physician at 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 sanitary landfill supervisor before breakfast 07/04/2016 4 clotrimazole-beta methasone (LOTRISONE) cream Apply 1 Application topically daily as needed (rash) 4 coenzyme Y91-loydspx E 100-5 mg-unit capsuleIndication s:supplement Take 1 tablet by mouth sanitary landfill supervisor before breakfast 4 diphenoxylate-atr opine (LOMOTIL) [...] week Fluids every -Heparin to flush 4 [facility] cabozantinib/plac abdulkadir (/[id number]) 20 mg tabletIndications :cancer study Take 1 tablet (20 mg total) by mouth nightly Take on an empty stomach (no food for 2 hours before and 1 hour after each dose).?? Avoid [place]'s Wort, grapefruit products and [place] oranges while on treatment. placed on hold [...] 10/02/2023 11:00 AM CDT Pt presented to [facility] for IV hydration. PAC accessed with brisk blood return. Pt given 1L NS, tolerated well. Confirmed with Sola RN that no labs or mag needed today. PAC flushed and deaccessed per protocol. Discharge instructions reviewed, pt verbalizes understanding. D/c to home in stable condition. 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 risk/MACHINERY RIGGER ONC Fall Prevention Note: Patient did not [...] 10/02/2023 documented in this encounter Care Teams Vp Global Relationship Specialty Start Date End Date Julio César Briseno MD PCP - General 10/01/16 Eren Cr MD Referring Physician Medical Oncology 11/25/18 Yohana Bowen MD Radiation Oncologist Radiation Oncology 11/25/18 Alejo Mi MD [address] [address] Referring Physician Nephrology 03/07/23 documented as of this encounter
--- OUTSIDE RECORDS SUMMARY | 2024-06-26 01:54 | XMS_ITS | Encounter Summary ---
Author Organization [facility] Address [address] [place] [address] Phone Care Team Providers Care Freezer Person Name Role Phone Julio César Briseno MD Primary Care Provider [phone] Eren Cr MD Unavailable [phone] Yohana Bowen MD Unavailable TullosAlejo Ramos MD Unavailable [phone] Reason for Visit * Reason Comments Port Draw * Episode Based Medications (Routine) - Closed Specialty Diagnoses / Procedures Referred By Contac t Referred To Contact Diagnoses Neuro-endocrine carcinoma (HCC) Procedures study [id number] phase III cabozantinib Eren Cr MD [address] [facility] [address] [place] [address] Phone: tel: fax: 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
--- OUTSIDE RECORDS SUMMARY | 2024-06-26 01:54 | XMS_ITS | Encounter Summary ---
Author Organization [facility] Address [address] [place] [address] Phone Care Team Providers Care Upper Lining Cementer Name Role Phone Julio César Briseno MD Primary Care Provider [phone] Eren Cr MD Unavailable [phone] Yohana Bowen MD Unavailable FlorenceAlejo Ramos MD Unavailable [phone] Reason for Visit * Reason Comments Injections * Episode Based Medications (Routine) - Authorized Specialty Diagnoses / Procedures Referred By Contac t Referred To Contact Oncology Diagnoses Neuroendocrine carcinoma (HCC) Malignant neoplasm metastatic to liver (HCC) Procedures [place] OCTREOTIDE INJECTION, DEPOT Octreotide 28 Day Cycles - Carcinoid Eren Cr MD [address] [facility] [address] [place] [address] Phone: tel: fax: [address] [address] Phone: tel: fax: Referral ID Status Reason Start Date Expiration Date V isits Requested Visits Authorized [id number] Authorized 11/28/2017 02/05/2025 1 150 Encounter Details Date Type Department Care Team (Late st Contact Info) Description 09/26/2023 3:45 PM CDT Infusion [facility] [address] [place] [address] 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 [...] on file 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 Gender Identity Not on file Sexual Orientation Straight 02/19/2021 9: 29 AM CDT Occupation Industry Job Start Date Job End Date retired Not on file Not on file Not on file documented as of this encounter Nursing Notes * Roopa Kaufman N - 09/26/2023 3:45 PM CDT Oncology Nursing Note [facility] La Chung is a [...] First Orde red Date ONCBCN NURSING COMMUNICATION [id number] 09/25 ONCBCN NURSING COMMUNICATION [id number] 1 0 09/26/2023 PHYSICIAN COMMUNICATION ORDER 1 09/26/2023 Appointment Requests Count Last Ordered Date Fi rst Ordered Date ONCBCN INJECTION APPOINTMENT REQUEST 1 09/06 documented in this encounter Care Teams Upper Lining Cementer Relationship Specialty Start Date End Date Julio César Briseno MD PCP - General 10/01/16 Eren Cr MD Referring Physician Medical Oncology 11/25/18 Yohana Bowen MD Radiation Oncologist Radiation Oncology 11/25/18 Alejo Mi MD [address] [place] [address] Referring Physician Nephrology 03/07/23 documented as of this encounter
--- OUTSIDE RECORDS SUMMARY | 2024-06-26 01:54 | XMS_ITS | Encounter Summary ---
Author Organization [facility] Address [address] [place] [address] Phone Care Team Providers Care Online Facilitator Name Role Phone Julio César Briseno MD Primary Care Provider Eren Cr MD Unavailable [phone] Yohana Bowen MD Unavailable Alejo Mi MD Unavailable [phone] Encounter Details Date Type Department Care Team (Late st Contact Info) Description 12/24/2023 10:45 AM CDT Office Visit [facility] Oncology [address] [place] [address] Eren Cr MD [address] [place] [address] Neuroendocrine carcinoma (HCC) (Primary Dx); Malignant neoplasm [...] file 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 Greyson Reeves. Biopsy revealed [...] Medications Medication Instructions 0.9 % sodium chloride ([facility] sodium chloride 0.9%) injection 10 mL, intravenous, Weekly, On saturday 0.9 % sodium chloride (sodium chloride 0.9%) 0.9% infusion amLODIPine (NORVASC) 5 mg tablet ascorbic acid, vitamin C, 500 mg capsule 1 tablet, Daily (early AM) cholecalciferol (VITAMIN D-3) 1,000 Units, oral, Daily clotrimazole-betamethasone (LOTRISONE) cream Apply 1 Application topically daily as needed (rash) coenzyme T24-iivomur E 100-5 mg-unit capsule 1 tablet, Daily [...] heparin 100 unit/mL solution 5 mL, Weekly [facility] cabozantinib/placebo (/[id number]) 20 mg, oral, Nightly, Take on an empty stomach (no food for 2 hours before and 1 hour after each dose). Avoid [place]'s Wort, grapefruit products and [place] oranges while on treatment. placed on hold [...] oral, Every 8 hours PRN [facility] Patient has colostomy and needs [place] [...] Exam Vitals reviewed. Exam conducted with a ladle patcher present. Constitutional: General: She is not in [...] 11:20 Tumor Markers Chromogranin A <93 ng/mL 860 [phone] RADIOGRAPHIC/DIAGNOSTIC REVIEW: CT chest abdomen pelvis with [...] D checked 06/11 16. Pt on ergocalciferol 69279 units weekly. -- she states she is [...] * Phosphorus (01/21/2024 11:44 AM CDT) Pathologist [facility] Phosphorus, pl 2.3 2.3 - 4.5 mg/dL Comment:Testing performed by : [facility], [address] [place] [address] Blood 01/21/2024 11:4 4 AM CDT 01/21/2024 11:44 AM CDT Eren Cr MD LAB BLOOD ORDERABLES Final Re sult Performing Organization Address [facility]/ZIP Co de Phone Number [facility] [place] [address] * Magnesium (01/21/2024 11:44 AM CDT) Magnesium 1.7 1.4 - 2.5 mg/dL Comment:Testing performed by : [facility], [address] [place] [address] Blood 01/21/2024 11:4 4 AM CDT 01/21/2024 11:44 AM CDT Eren Cr MD LAB BLOOD ORDERABLES Final Re sult Performing Organization Address [facility] Co de Phone Number [facility] [place] [address] * (ABNORMAL) Comprehensive metabolic panel (01/21/2024 11:44 AM CDT) Sodium 139 135 - 145 mmol/L Comment:Testing performed by : [address] [address] Potassium, pl 3.9 3.3 - 4.9 mmol/L [facility] Chloride 108 97 - 110 mmol/L [facility] CO2 24 22 - 32 mmol/L [facility] Anion gap 7 2 - 15 mmol/L [facility] BUN 18 6 - 25 mg/dL [facility] Creatinine 1.53(H) 0.60 - 1.10 mg/dL [facility] Glucose 93 70 - 199 mg/dL [facility] Comment: Interpretive Data Fasting glucose [...] 2022. Calcium 9.3 8.5 - 10.3 mg/dL [facility] Bilirubin, total 0.4 0.1 - 1.2 mg/dL [facility] Protein, pl 6.5 6.5 - 8.5 g/dL [facility] Albumin 4.1 3.5 - 5.0 g/dL [facility] Alk phos 61 40 - 130 Units/L [facility] ALT 19 7 - 45 Units/L [facility] AST 31 10 - 45 Units/L [facility] Blood 01/21/2024 11:4 4 AM CDT 01/21/2024 11:44 AM CDT us Eren Cr MD LAB BLOOD ORDERABLES Final Re sult [facility] Department [place] [address] * (ABNORMAL) CBC with auto differential (01/21/2024 11:44 AM CDT) [facility] WBC 5.0 3.8 - 9.9 K/cumm Comment:Testing performed by : [address] [address] Hgb 12.8 11.9 - 15.5 g/dL [facility] Comment:Testing performed by : [address] [address] Hct 39.3 35.6 - 45.5 % [facility] Comment:Testing performed by : [address] [address] Plt 118(L) 150 - 400 K/cumm [facility] Comment:Testing performed by : [address] [address] MPV 9.8 9.1 - 12.3 fL [facility] RBC 4.12 3.90 - 5.20 M/cumm [facility] MCV 95.4 81.3 - 96.4 fL [facility] MCH 31.1 27.1 - 33.3 pg [facility] MCHC 32.6 32.3 - 35.7 g/dL [facility] RDW CV 15.9(H) 11.1 - 14.9 % [facility] RDW SD 55.3(H) 35.7 - 48.1 fL [facility] NRBC abs 0.00 0.00 - 0.01 K/cumm [facility] Blood 01/21/2024 11:4 4 AM CDT 01/21/2024 11:44 AM CDT us Eren Cr MD LAB BLOOD ORDERABLES Final Re sult [facility] Department [place] [address] * (ABNORMAL) Chromogranin A (01/21/2024 11:44 AM CDT) Pathologist [facility] Chromogranin A 3301(H) <93 ng/mL [facility] Comment: Impaired renal or hepatic function or treatment with proton pump inhibitors may result in artifactual elevations of Chromogranin A. ADDITIONAL INFORMATION The testing method is a homogeneous time-resolved immunofluorescent assay manufactured by [employer] and performed on the [employer] Kryptor Compact Plus. ? Values obtained with [...] and other findings. Test Performed by: [address] [address] [employer]: Carley Tony Ph.D.; CLIA# [id number] Blood 01/21/2024 11:4 4 AM CDT 01/21/2024 2:59 PM CDT Eren Cr MD LAB BLOOD ORDERABLES Final Re sult Performing Organization Address City/[facility]/ZIP Co de Phone Number [facility] [place] [address] [place] [facility] * (ABNORMAL) Vitamin D 25 hydroxy (01/21/2024 11:44 AM CDT) Vitamin D 25-OH 18(L) 30 - 80 ng/mL Blood 01/21/2024 11:4 4 AM CDT 01/21/2024 2:02 PM CDT Eren Cr MD LAB BLOOD ORDERABLES Final Re sult Performing Organization Address City/[facility] Co de Phone Number [facility] [place] [address] * Lipid panel (01/21/2024 11:44 AM CDT) [facility] Cholesterol 135 30 - 199 mg/dL Comment: [...] revised on 2018. Triglycerides 131 <=149 mg/dL [facility] Comment: Interpretive Data Ages < [...] revised on 2018. HDL 54 >=40 mg/dL [facility] Comment: Interpretive Data Ages < [...] on 2018. LDL, calculated 55 <=129 mg/dL [facility] Comment: Interpretive Data Ages < [...] on 2018. Non-HDL Cholesterol 81 mg/dL [facility] Comment: Interpretive Data Ages < or = [...] revised on 2018. Chol/HDL ratio 3 [facility] Blood 01/21/2024 11:4 4 AM CDT 01/21/2024 2:02 PM CDT Eren Cr MD LAB BLOOD ORDERABLES Final Re sult [facility] Department of Laboratories [place], [place] [id number] documented in this encounter Visit Diagnoses Diagnosis [...] 12/25/2023 documented in this encounter Care Teams Online Facilitator Relationship Specialty Start Date End Date Julio César Briseno MD PCP - General 10/01/16 Eren Cr MD Referring Physician Medical Oncology 11/25/18 Yohana Bowen MD Radiation Oncologist Radiation Oncology 11/25/18 Alejo Mi MD [address] [address] Referring Physician Nephrology 03/07/23 documented as of this encounter
--- OUTSIDE RECORDS SUMMARY | 2024-06-26 01:54 | XMS_ITS | Encounter Summary ---
Author Organization [facility] Address [address] [place] [address] Phone Care Team Providers Care Die Cutter Diamond Name Role Phone Julio César Briseno MD Primary Care Provider [phone] Eren Cr MD Unavailable [phone] Yohana Bowen MD Unavailable DugspurAlejo Ramos MD Unavailable [phone] Reason for Visit * Episode Based Medications (Routine) - Closed Specialty Diagnoses / Procedures Referred By Contac t Referred To Contact Diagnoses Neuro-endocrine carcinoma (HCC) Procedures study [id number] phase III cabozantinib Eren Cr MD [address] [place] [address] Phone: tel: fax: [facility] [address] [facility] 7th [place] [address] Phone: tel: Referral ID Status Reason Start Date Expiration Date Visits Re quested Visits Authorized [id number] Closed 06/21/2021 06/26/2024 1 99 Encounter Details Date Type Department Care Team (Latest Contact Info) Description 10/29/2023 9:30 AM CDT Clinical Support [facility] [address] [place] [address] Neuro-endocrine carcinoma (HCC) Social History Tobacco Use [...] on file 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
--- OUTSIDE RECORDS SUMMARY | 2024-06-26 01:54 | XMS_ITS | Encounter Summary ---
Author Organization [facility] Address [address] [place] [address] Phone Care Team Providers Care Day Worker Name Role Phone Julio César Briseno MD Primary Care Provider Eren Cr MD Unavailable [phone] Yohana Bowen MD Unavailable Aljeo Mi MD Unavailable [phone] Encounter Details Date Type Department Care Team (Late st Contact Info) Description 11/26/2023 Orders Only [facility] [address] [place] [address] Eren Cr MD [address] [place], [place] [id number] Nausea (Primary Dx) Social History Tobacco Use [...] file 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
--- OUTSIDE RECORDS SUMMARY | 2024-06-26 01:54 | XMS_ITS | Encounter Summary ---
Author Organization [facility] Healthcare Address [address] [place] [address] Care Team Providers Care Biodiesel Engineering Manager Name Role Phone Julio César Briseno MD Primary Care Provider [phone] Eren Cr MD Unavailable [phone] Yohana Bowen MD Unavailable Alejo Mi MD Unavailable [phone] Encounter Details Date Type Department Care Team (Latest Contact Info) Description 09/18/2023 10:53 AM CDT - 09/18/2023 11:59 PM CDT Hospital Encounter [facility] [place] [facility] ([facility]) [address] [place] [address] Julio César Briseno MD [address] [place] [address] Dehydration (Primary Dx); Neuroendocrine carcinoma (HCC); Malignant [...] file 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 Gender Identity Not on file Sexual [...] nightly 0.9 % sodium chloride ([facility] sodium chloride 0.9%) injectionIndicati ons:line care Infuse 10 mL into a venous catheter once a week On saturday 4 0.9 % sodium chloride (sodium chloride 0.9%) 0.9% infusion 05/22/2023 4 ascorbic acid, vitamin C, 500 mg capsuleIndication s:supplement Take 1 tablet by mouth supervisor bleach plant before breakfast 07/04/2016 4 clotrimazole-beta methasone (LOTRISONE) cream Apply 1 Application topically daily as needed (rash) 4 coenzyme M63-hliedbf E 100-5 mg-unit capsuleIndication s:supplement Take 1 tablet by mouth supervisor bleach plant before breakfast 4 diphenoxylate-atr opine (LOMOTIL) 2.5-0.025 [...] and 1 hour after each dose).?? Avoid [place]'s Wort, grapefruit products and [place] oranges while on treatment. placed on hold [...] 09/18/2023 11:00 AM CDT Patient arrived to [facility] for IV hydration. Plan of care reviewed [...] 09/18/2023 documented in this encounter Care Teams Biodiesel Engineering Manager Relationship Specialty Start Date End Date Julio César Briseno MD PCP - General 10/01/16 Eren Cr MD Referring Physician Medical Oncology 11/25/18 Yohana Bowen MD Radiation Oncologist Radiation Oncology 11/25/18 Alejo Mi MD [address] [address] Referring Physician Nephrology 03/07/23 documented as of this encounter
--- OUTSIDE RECORDS SUMMARY | 2024-06-26 01:54 | XMS_ITS | Encounter Summary ---
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 Gender Identity Not on file Sexual [...] 0.9 % sodium chloride ([facility] sodium chloride 0.9%) injectionIndicati ons:line care Infuse 10 mL into a venous catheter once a week On saturday 4 0.9 % sodium chloride (sodium chloride 0.9%) 0.9% infusion 05/22/2023 4 ascorbic acid, vitamin C, 500 mg capsuleIndication s:supplement Take 1 tablet by mouth improvement manager before breakfast 07/04/2016 4 clotrimazole-beta methasone (LOTRISONE) cream Apply 1 Application topically daily as needed (rash) 4 coenzyme [id number] E 100-5 mg-unit capsuleIndication s:supplement Take 1 tablet by mouth improvement manager before breakfast 4 diphenoxylate-atr opine (LOMOTIL) [...] week Fluids every -Heparin to flush 4 [facility] cabozantinib/plac abdulkadir (08-122/A021 602) 20 mg tabletIndications :cancer study Take 1 tablet (20 mg total) by mouth nightly Take on an empty stomach (no food for 2 hours before and 1 hour after each dose).?? Avoid [place]'s Wort, grapefruit products and [place] oranges while on treatment. placed on hold [...] sult [facility] Department [place] [address] * Differential, auto (11/26/2023 11:20 AM CDT) [facility] Neutrophil abs 3.0 1.5 - 6.5 K/cumm Comment:Testing performed by : [facility], [address] [place] [address] Imm gran abs 0.0 0.0 - 0.1 K/cumm [facility] Lymphocyte abs 1.2 0.8 - 3.3 K/cumm [facility] Monocyte abs 0.5 0.2 - 0.8 K/cumm [facility] Eosinophil abs 0.2 0.0 - 0.5 K/cumm [facility] Basophil abs 0.0 0.0 - 0.1 K/cumm [facility] Neutrophil pct 61.1 % [facility] Comment: Interpretive Data Percent cell count reference ranges are not reported, since discordance with absolute values may lead to misinterpretation of CBC data. Current Interpretive Data was last revised on 2017. Imm gran pct 0.2 % [facility] Comment: Interpretive Data Percent cell count reference ranges are not reported, since discordance with absolute values may lead to misinterpretation of CBC data. Current Interpretive Data was last revised on 2017. Lymphocyte pct 24.2 % [facility] Comment: Interpretive Data Percent cell count reference ranges are not reported, since discordance with absolute values may lead to misinterpretation of CBC data. Current Interpretive Data was last revised on 2017. Monocyte pct 10.1 % [facility] Comment: Interpretive Data Percent cell count reference ranges are not reported, since discordance with absolute values may lead to misinterpretation of CBC data. Current Interpretive Data was last revised on 2017. Eosinophil pct 3.6 % [facility] Comment: Interpretive Data Percent cell count reference ranges are not reported, since discordance with absolute values may lead to misinterpretation of CBC data. Current Interpretive Data was last revised on 2017. Basophil pct 0.8 % [facility] Comment: Interpretive Data Percent cell count reference ranges are not reported, since discordance with absolute values may lead to misinterpretation of CBC data. Current Interpretive Data was last revised on 2017. Blood 11/26/2023 11:2 0 AM CDT 11/26/2023 11:21 AM CDT us Eren Cr MD LAB BLOOD ORDERABLES Final Re sult [facility] Department [place] [address] * (ABNORMAL) CBC with auto differential (11/26/2023 11:20 AM CDT) WBC 5.0 3.8 - 9.9 K/cumm Comment:Testing performed by : [address] [address] Hgb 10.7(L) 11.9 - 15.5 g/dL [facility] Comment:Testing performed by : [address] [address] Hct 33.5(L) 35.6 - 45.5 % [facility] Comment:Testing performed by : [facility], [address] [place] [address] Plt 101(L) 150 - 400 K/cumm [facility] Comment:Testing performed by : [facility], [address] [place] [address] MPV 10.7 9.1 - 12.3 fL [facility] RBC 3.46(L) 3.90 - 5.20 M/cumm [facility] MCV 96.8(H) 81.3 - 96.4 fL [facility] MCH 30.9 27.1 - 33.3 pg [facility] MCHC 31.9(L) 32.3 - 35.7 g/dL [facility] RDW CV 15.2(H) 11.1 - 14.9 % [facility] RDW SD 53.6(H) 35.7 - 48.1 fL [facility] NRBC abs 0.00 0.00 - 0.01 K/cumm [facility] Blood 11/26/2023 11:2 0 AM CDT 11/26/2023 11:21 AM CDT Eren Cr MD LAB BLOOD ORDERABLES Final Re sult [facility] Department [place] [address] * (ABNORMAL) Comprehensive metabolic panel (11/26/2023 11:20 AM CDT) [facility] Sodium 137 135 - 145 mmol/L Comment:Testing performed by : [facility], [address] [place] [address] Potassium, pl 4.3 3.3 - 4.9 mmol/L [facility] Chloride 105 97 - 110 mmol/L [facility] CO2 26 22 - 32 mmol/L [facility] Anion gap 6 2 - 15 mmol/L [facility] BUN 12 6 - 25 mg/dL [facility] Creatinine 1.21(H) 0.60 - 1.10 mg/dL [facility] Glucose 124 70 - 199 mg/dL [facility] [...] 2022. Calcium 10.1 8.5 - 10.3 mg/dL [facility] Bilirubin, total 0.6 0.1 - 1.2 mg/dL [facility] Protein, pl 6.3(L) 6.5 - 8.5 g/dL [facility] Albumin 4.2 3.5 - 5.0 g/dL [facility] Alk phos 67 40 - 130 Units/L [facility] ALT 20 7 - 45 Units/L [facility] AST 33 10 - 45 Units/L [facility] Blood 11/26/2023 11:2 0 AM CDT 11/26/2023 11:21 AM CDT Eren Cr MD LAB BLOOD ORDERABLES Final Re sult [facility] Department [place] [address] * Magnesium (11/26/2023 11:20 AM CDT) Magnesium 1.7 1.4 - 2.5 mg/dL Comment:Testing performed by : [facility], [address] [place] [address] Blood 11/26/2023 11:2 0 AM CDT 11/26/2023 11:21 AM CDT Eren Cr MD LAB BLOOD ORDERABLES Final Re sult [facility] Department [place] [address] * Lipid panel (11/26/2023 11:20 AM CDT) [...] on 2018. Triglycerides 111 <=149 mg/dL [facility] Comment: Interpretive Data Ages < or = [...] revised on 2018. HDL 55 >=40 mg/dL [facility] Comment: [...] on 2018. LDL, calculated 55 <=129 mg/dL [facility] [...] revised on 2018. Non-HDL Cholesterol 77 mg/dL [facility] Comment: [...] last revised on 2018. Chol/HDL ratio 2 [facility] Blood 11/26/2023 11:2 0 AM CDT 11/26/2023 1:03 PM CDT Eren Cr MD LAB BLOOD ORDERABLES Final Re sult Performing Organization Address City/[facility]/[place] [address] * Phosphorus (11/26/2023 11:20 AM CDT) Pathologist [facility] Phosphorus, pl 2.8 2.3 - 4.5 mg/dL Comment:Testing performed by : [address] [address] Blood 11/26/2023 11:2 0 AM CDT 11/26/2023 11:21 AM CDT Eren Cr MD LAB BLOOD ORDERABLES Final Re sult Performing Organization Address [facility] [place] [address] * (ABNORMAL) Vitamin D 25 hydroxy (11/26/2023 11:20 AM CDT) Pathologist [facility] Vitamin D 25-OH 19(L) 30 - 80 ng/mL Blood 11/26/2023 11:2 0 AM CDT 11/26/2023 1:03 PM CDT Eren Cr MD LAB BLOOD ORDERABLES Final Re sult Performing Organization Address City/[facility]/ZIP Co de Phone Number [facility] [place] [address] * (ABNORMAL) Chromogranin A (11/26/2023 11:20 AM CDT) Chromogranin A 2279(H) <93 ng/mL [facility] Comment: Impaired renal or hepatic function or treatment with proton pump inhibitors may result in artifactual elevations of Chromogranin A. ADDITIONAL INFORMATION The testing method is a homogeneous time-resolved immunofluorescent assay manufactured by [employer] and performed on the [employer]en[employer] Compact Plus. ? Values obtained with different [...] examination and other findings. Test Performed by: [place] [address] Public Safety Officer: Immanuel Novak M.D. 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
--- OUTSIDE RECORDS SUMMARY | 2024-06-26 01:54 | XMS_ITS | Encounter Summary ---
Author Organization 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 Gender Identity Not on file Sexual Orientation [...] mouth nightly 0.9 % sodium chloride ([facility] sodium chloride 0.9%) injectionIndicati ons:line care Infuse 10 mL into a venous catheter once a week On saturday 4 0.9 % sodium chloride (sodium chloride 0.9%) 0.9% infusion 05/22/2023 4 ascorbic acid, vitamin C, 500 mg capsuleIndication s:supplement Take 1 tablet by mouth warehouse administrative assistant before breakfast 07/04/2016 4 clotrimazole-beta methasone (LOTRISONE) cream Apply 1 Application topically daily as needed (rash) 4 coenzyme K99-zbgcqoa E 100-5 mg-unit capsuleIndication s:supplement Take 1 tablet by mouth warehouse administrative assistant before breakfast 4 diphenoxylate-atr opine (LOMOTIL) 2.5-0.025 [...] week Fluids every -Heparin to flush 4 [facility] cabozantinib/plac abdulkadir (/A021 602) 20 mg tabletIndications :cancer study Take 1 tablet (20 mg total) by mouth nightly Take on an empty stomach (no food for 2 hours before and 1 hour after each dose).?? Avoid Jas's Wort, grapefruit products and [place] oranges while on treatment. placed on hold [...] filedocumented in this encounter Care Teams Medical Officer Relationship Specialty Start Date End Date Julio César Briseno MD PCP - General 10/01/16 Eren Cr MD Referring Physician Medical Oncology 11/25/18 Yohana Bowen MD Radiation Oncologist Radiation Oncology 11/25/18 Alejo Mi MD [address] [place] [address] Referring Physician Nephrology 03/07/23 documented as of this encounter
--- OUTSIDE RECORDS SUMMARY | 2024-06-26 01:54 | XMS_ITS | Encounter Summary ---
Author Organization [facility] Healthcare Address [address] [place] [address] Care Team Providers Care Assembler Ping Pong Table Name Role Phone Julio César Briseno MD Primary Care Provider [phone] Eren Cr MD Unavailable [phone] Yohana Bowen MD Unavailable Alejo Mi MD Unavailable [phone] Encounter Details Date Type Department Care Team (Latest Contact Info) Description 11/13/2023 12:17 PM CDT - 11/13/2023 11:59 PM CDT Hospital Encounter [facility] ([facility]) [address] [place] [phone] Neuroendocrine carcinoma (HCC); Malignant neoplasm metastatic to [...] file 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 Gender Identity Not on file Sexual [...] by mouth nightly 0.9 % sodium chloride ([facility] sodium chloride 0.9%) injectionIndicati ons:line care Infuse 10 mL into a venous catheter once a week On saturday 4 0.9 % sodium chloride (sodium chloride 0.9%) 0.9% infusion 05/22/2023 4 ascorbic acid, vitamin C, 500 mg capsuleIndication s:supplement Take 1 tablet by mouth supervisory examiner before breakfast 07/04/2016 4 clotrimazole-beta methasone (LOTRISONE) cream Apply 1 Application topically daily as needed (rash) 4 coenzyme F11-dkpboko E 100-5 mg-unit capsuleIndication s:supplement Take 1 tablet by mouth supervisory examiner before breakfast 4 diphenoxylate-atr opine (LOMOTIL) 2.5-0.025 [...] week Fluids every -Heparin to flush 4 [facility] cabozantinib/plac abdulkadir (2018-02-122/A021 602) 20 mg tabletIndications :cancer study Take 1 tablet (20 mg total) by mouth nightly Take on an empty stomach (no food for 2 hours before and 1 hour after each dose).?? Avoid Jas's Wort, grapefruit products and [place] oranges while on treatment. placed on hold [...] was last reviewed 2021. Testing performed by: [facility], [address] [place] [phone] Blood 11/13/2023 11:2 5 AM CDT 11/13/2023 11:29 AM CDT us Eren Cr MD LAB BLOOD ORDERABLES Final Re sult [facility] Department [place] [address] * (ABNORMAL) Differential, auto (11/13/2023 11:25 AM CDT) Neutrophil abs 2.3 1.5 - 6.6 K/cumm Comment:Testing performed by : [facility], [address] [place] [phone] Lymphocyte abs 0.5(L) 1.2 - 3.3 K/cumm [facility] Comment:Testing performed by : [facility], [address] [place] [phone] Monocyte abs 0.5 0.2 - 1.2 K/cumm [facility] Comment:Testing performed by : [facility], [address] [place] [phone] Eosinophil abs 0.2 0.0 - 0.5 K/cumm [facility] Comment:Testing performed by : [facility], [address] [place] [phone] Basophil abs 0.0 0.0 - 0.2 K/cumm [facility] Comment:Testing performed by : [facility], [address] [place] [phone] Neutrophil pct 64.9 % [facility] Comment: Interpretive Data Percent cell count reference ranges are not reported, since discordance with absolute values may lead to misinterpretation of CBC data. Current Interpretive Data was last revised on 2017. Testing performed by: [facility], [address] [place] [phone] Lymphocyte pct 14.4 % [facility] Comment: Interpretive Data Percent cell count reference ranges are not reported, since discordance with absolute values may lead to misinterpretation of CBC data. Current Interpretive Data was last revised on 2017. Testing performed by: [facility], [address] [place] [phone] Monocyte pct 14.9 % [facility] Comment:Testing performed by : [facility], [address] [place] [phone] Eosinophil pct 5.1 % [facility] Comment:Testing performed by : [facility], [address] [place] [phone] Basophil pct 0.7 % [facility] Comment:Testing performed by : [facility], [address] [place] [phone] Blood 11/13/2023 11:2 5 AM CDT 11/13/2023 11:29 AM CDT us Eren Cr MD LAB BLOOD ORDERABLES Final Re sult [facility] Department of Laboratories [place], [place] [id number] * (ABNORMAL) CBC with auto differential (11/13/2023 11:25 AM CDT) WBC 3.5(L) 3.8 - 9.8 K/cumm Comment:Testing performed by : [facility], [address] [place] [phone] Hgb 11.0(L) 12.1 - 15.1 g/dL [facility] Comment:Testing performed by : [facility], [address] [place] [phone] Hct 33.1(L) 36.1 - 44.3 % [facility] Comment:Testing performed by : [facility], [address] [place] [phone] Plt 102(L) 140 - 440 K/cumm [facility] Comment:Testing performed by : [facility], [address] [place] [phone] MPV 7.7 6.8 - 10.4 fL [facility] Comment:Testing performed by : [facility], [address] [place], [place] [phone] RBC 3.41(L) 3.90 - 5.00 M/cumm [facility] Comment:Testing performed by : [facility], [address] [place], [place] [phone] MCV 97.0 80.0 - 97.6 fL [facility] Comment:Testing performed by : [address] [phone] MCH 32.3 26.7 - 33.7 pg [facility] Comment:Testing performed by : [address] [phone] MCHC 33.3 32.7 - 35.5 g/dL [facility] Comment:Testing performed by : [facility], [address] [place] [phone] RDW CV 15.6(H) 11.8 - 14.6 % [facility] Comment:Testing performed by : [facility], [address] [place] [phone] NRBC abs 0.00 0.00 - 0.01 K/cumm [facility] Comment:Testing performed by : [address] [phone] Blood 11/13/2023 11:2 5 AM CDT 11/13/2023 11:29 AM CDT us Eren Cr MD LAB BLOOD ORDERABLES Final Re sult [facility] Department [place] [address] * (ABNORMAL) Comprehensive metabolic panel (11/13/2023 11:25 AM CDT) Sodium 139 135 - 145 mmol/L Comment:Testing performed by : [facility], [address] [place] [phone] Potassium, pl 4.2 3.3 - 4.9 mmol/L [facility] Comment:Testing performed by : [facility], [address] [place] [phone] Chloride 109 97 - 110 mmol/L [facility] Comment:Testing performed by : [facility], [address] [place] [phone] CO2 25 22 - 32 mmol/L [facility] Comment:Testing performed by : [facility], [address] [place] [phone] Anion gap 5 2 - 15 mmol/L [facility] Comment:Testing performed by : [facility], [address] [place] [phone] BUN 13 6 - 25 mg/dL [facility] Comment:Testing performed by : [facility], [address] [place] [phone] Creatinine 1.03 0.60 - 1.10 mg/dL [facility] Comment:Testing performed by : [facility], [address] [place] [phone] Glucose 73 70 - 199 mg/dL [facility] [...] was last revised 2022. Testing performed by: [facility], [address] [place] [phone] Calcium 9.6 8.5 - 10.3 mg/dL [facility] Comment:Testing performed by : [facility], [address] [place] [phone] Bilirubin, total 0.4 0.1 - 1.2 mg/dL [facility] Comment:Testing performed by : [facility], [address] [place] [phone] Protein, pl 6.0(L) 6.5 - 8.5 g/dL [facility] Comment:Testing performed by : [facility], [address] [place] [phone] Albumin 3.7 3.5 - 5.0 g/dL [facility] Comment:Testing performed by : [facility], [address] [place] [phone] Alk phos 73 40 - 130 Units/L [facility] Comment:Testing performed by : [facility], [address] [place] [phone] ALT 16 7 - 45 Units/L [facility] Comment:Testing performed by : [facility], [address] [place] [phone] AST 25 10 - 45 Units/L [facility] Comment:Testing performed by : [facility], [address] [place] [phone] Blood 11/13/2023 11:2 5 AM CDT 11/13/2023 11:29 AM CDT us Eren Cr MD LAB BLOOD ORDERABLES Final Re sult [facility] Department of Laboratories [place], [place] [phone] documented in this encounter Visit Diagnoses Diagnosis Neuroendocrine carcinoma (HCC) Other malignant neoplasm of unspecified site Malignant neoplasm metastatic to 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
--- OUTSIDE RECORDS SUMMARY | 2024-06-26 01:54 | XMS_ITS | Encounter Summary ---
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 Gender Identity Not on file Sexual [...] by mouth nightly 0.9 % sodium chloride ([facility] sodium chloride 0.9%) injectionIndicati ons:line care Infuse 10 mL into a venous catheter once a week On saturday 4 0.9 % sodium chloride (sodium chloride 0.9%) 0.9% infusion 05/22/2023 4 ascorbic acid, vitamin C, 500 mg capsuleIndication s:supplement Take 1 tablet by mouth undercar specialist before breakfast 07/04/2016 4 clotrimazole-beta methasone (LOTRISONE) cream Apply 1 Application topically daily as needed (rash) 4 coenzyme [id number] 100-5 mg-unit capsuleIndication s:supplement Take 1 tablet by mouth undercar specialist before breakfast 4 diphenoxylate-atr opine (LOMOTIL) [...] week Fluids every -Heparin to flush 4 INV-[facility] cabozantinib/plac abdulkadir (/[id number] [id number]) 20 mg tabletIndications :cancer study Take 1 tablet (20 mg total) by mouth nightly Take on an empty stomach (no food for 2 hours before and 1 hour after each dose).?? Avoid [place]'s Wort, grapefruit products and [place] oranges while on treatment. placed on hold [...] Final Re sult [facility] [place] [address] * (ABNORMAL) Differential, auto (10/29/2023 10:33 AM CDT) Pathologist [facility] Neutrophil abs 2.0 1.5 - 6.5 K/cumm Comment:Testing performed by : [facility], [address] [facility] [address] Imm gran abs 0.0 0.0 - 0.1 K/cumm [facility] Lymphocyte abs 0.3(L) 0.8 - 3.3 K/cumm [facility] Monocyte abs 0.5 0.2 - 0.8 K/cumm [facility] Eosinophil abs 0.2 0.0 - 0.5 K/cumm [facility] Basophil abs 0.0 0.0 - 0.1 K/cumm [facility] Neutrophil pct 65.3 % [facility] Comment: Consistent with previous result Interpretive Data Percent cell count reference ranges are not reported, since discordance with absolute values may lead to misinterpretation of CBC data. Current Interpretive Data was last revised on 2017. Imm gran pct 0.3 % [facility] Comment: Interpretive Data Percent cell count reference ranges are not reported, since discordance with absolute values may lead to misinterpretation of CBC data. Current Interpretive Data was last revised on 2017. Lymphocyte pct 11.1 % [facility] Comment: Interpretive Data Percent cell count reference ranges are not reported, since discordance with absolute values may lead to misinterpretation of CBC data. Current Interpretive Data was last revised on 2017. Monocyte pct 17.4 % [facility] Comment: Interpretive Data Percent cell count reference ranges are not reported, since discordance with absolute values may lead to misinterpretation of CBC data. Current Interpretive Data was last revised on 2017. Eosinophil pct 5.2 % [facility] Comment: Interpretive Data Percent cell count reference ranges are not reported, since discordance with absolute values may lead to misinterpretation of CBC data. Current Interpretive Data was last revised on 2017. Basophil pct 0.7 % [facility] Comment: Interpretive Data Percent cell count reference ranges are not reported, since discordance with absolute values may lead to misinterpretation of CBC data. Current Interpretive Data was last revised on 2017. Blood 10/29/2023 10:3 3 AM CDT 10/29/2023 10:35 AM CDT us Eren Cr MD LAB BLOOD ORDERABLES Final Re sult [facility] [place] [address] * (ABNORMAL) CBC with auto differential (10/29/2023 10:33 AM CDT) WBC 3.1(L) 3.8 - 9.9 K/cumm Comment:Testing performed by : [facility], [address] [place] [address] Hgb 10.9(L) 11.9 - 15.5 g/dL [facility] Comment:Testing performed by : [facility], [address] [place] [address] Hct 33.3(L) 35.6 - 45.5 % [facility] Comment:Testing performed by : [facility], [address] [place] [address] Plt 94(L) 150 - 400 K/cumm [facility] Comment:Testing performed by : [facility], [address] [place] [address] MPV 10.4 9.1 - 12.3 fL [facility] RBC 3.46(L) 3.90 - 5.20 M/cumm [facility] MCV 96.2 81.3 - 96.4 fL [facility] MCH 31.5 27.1 - 33.3 pg [facility] MCHC 32.7 32.3 - 35.7 g/dL [facility] RDW CV 14.7 11.1 - 14.9 % [facility] RDW SD 51.2(H) 35.7 - 48.1 fL [facility] NRBC abs 0.00 0.00 - 0.01 K/cumm [facility] Blood 10/29/2023 10:3 3 AM CDT 10/29/2023 10:35 AM CDT Eren Cr MD LAB BLOOD ORDERABLES Final Re sult [facility] [place] [address] * Magnesium (10/29/2023 10:33 AM CDT) Magnesium 1.9 1.4 - 2.5 mg/dL Comment:Testing performed by : [facility], [address] [place] [address] Blood 10/29/2023 10:3 3 AM CDT 10/29/2023 10:35 AM CDT us Eren Cr MD LAB BLOOD ORDERABLES Final Re sult [facility] [place] [address] * (ABNORMAL) Comprehensive metabolic panel (10/29/2023 10:33 AM CDT) Sodium 139 135 - 145 mmol/L Comment:Testing performed by : [facility], [address] [place] [address] Potassium, pl 4.2 3.3 - 4.9 mmol/L [facility] Chloride 109 97 - 110 mmol/L [facility] CO2 25 22 - 32 mmol/L [facility] Anion gap 5 2 - 15 mmol/L [facility] BUN 15 6 - 25 mg/dL [facility] Creatinine 1.11(H) 0.60 - 1.10 mg/dL [facility] Glucose 91 70 - 199 mg/dL [facility] [...] 2022. Calcium 10.1 8.5 - 10.3 mg/dL [facility] Bilirubin, total 0.5 0.1 - 1.2 mg/dL [facility] Protein, pl 6.2(L) 6.5 - 8.5 g/dL [facility] Albumin 3.9 3.5 - 5.0 g/dL [facility] Alk phos 66 40 - 130 Units/L [facility] ALT 19 7 - 45 Units/L [facility] AST 27 10 - 45 Units/L [facility] Blood 10/29/2023 10:3 3 AM CDT 10/29/2023 10:35 AM CDT us Eren Cr MD LAB BLOOD ORDERABLES Final Re sult [facility] [place] [address] * Lipid panel (10/29/2023 10:33 AM CDT) [...] revised on 2018. HDL 50 >=40 mg/dL [facility] Comment: Interpretive Data Ages < or = [...] on 2018. LDL, calculated 48 <=129 mg/dL [facility] Comment: Interpretive Data Ages < or = [...] on 2018. Non-HDL Cholesterol 71 mg/dL [facility] Comment: [...] Chol/HDL ratio 2 [facility] Blood 10/29/2023 10:3 3 AM CDT 10/29/2023 11:49 AM CDT Eren Cr MD LAB BLOOD ORDERABLES Final Re sult Performing Organization Address [facility] Co de Phone Number [facility] Department [place] [address] * Phosphorus (10/29/2023 10:33 AM CDT) Pathologist [facility] Phosphorus, pl 2.3 2.3 - 4.5 mg/dL Comment:Testing performed by : [facility], [address] [place] [address] Blood 10/29/2023 10:3 3 AM CDT 10/29/2023 10:35 AM CDT Eren Cr MD LAB BLOOD ORDERABLES Final Re sult Performing Organization Address [facility] Co de Phone Number [facility] Department [place] [address] * (ABNORMAL) Vitamin D 25 hydroxy (10/29/2023 10:33 AM CDT) Vitamin D 25-OH 21(L) 30 - 80 ng/mL Blood 10/29/2023 10:3 3 AM CDT 10/29/2023 11:49 AM CDT Eren Cr MD LAB BLOOD ORDERABLES Final Re sult Performing Organization Address [facility] Co de Phone Number [facility] [place] [address] * (ABNORMAL) Chromogranin A (10/29/2023 10:33 AM CDT) Chromogranin A 667(H) <93 ng/mL [place] Comment: Impaired renal or hepatic function or treatment with proton pump inhibitors may result in artifactual elevations of Chromogranin A. ADDITIONAL INFORMATION The testing method is a homogeneous time-resolved immunofluorescent assay manufactured by [employer] and performed on the Purplleor Compact Plus. ? Values obtained with different [...] examination and other findings. Test Performed by: [place] [address] Kitchen And Counter Worker: Immanuel Novak M.D. Ph.D.; CLIA# [id number] Blood 10/29/2023 10:3 3 AM CDT 10/29/2023 12:05 PM CDT Eren Cr MD LAB BLOOD ORDERABLES Final Re sult Performing Organization Address City/[facility] Co de Phone Number [facility] [place] [address] [place] [facility] * Protein / creatinine ratio, urine, random (10/29/2023 10:30 AM CDT) Protein, ur, quant 26.2 mg/dL Comment: Interpretive Data No reference range established. Current interpretive data was last revised 2018. Creatinine Ur 167.8 mg/dL [facility] Comment: Interpretive Data No reference range established. Current interpretive data was last revised 2018. Protein/creatinin e ratio 156.1 0.0 - 180.0 mg/g CR 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
--- OUTSIDE RECORDS SUMMARY | 2024-06-26 01:54 | XMS_ITS | Encounter Summary ---
Author Organization [facility] Address [address] [place] [address] Phone Care Team Providers Care Process Control Programmer Name Role Phone Julio César Briseno MD Primary Care Provider [phone] Eren Cr MD Unavailable [phone] Yohana Bowen MD Unavailable Hurricane MillsAlejo Ramos MD Unavailable [phone] Reason for Visit * Episode Based Medications (Routine) - Closed Specialty Diagnoses / Procedures Referred By Contac t Referred To Contact Diagnoses Neuro-endocrine carcinoma (HCC) Procedures study [id number] phase III cabozantinib Eren Cr MD [address] [place] [address] Phone: tel: fax: [facility] [address] 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
--- OUTSIDE RECORDS SUMMARY | 2024-06-26 01:54 | XMS_ITS | Encounter Summary ---
Author Organization [facility] Address [address] [place] [address] Phone Care Team Providers Care Lime Kiln Tender Name Role Phone Julio César Briseno MD Primary Care Provider Eren Cr MD Unavailable [phone] Yohana Bowen MD Unavailable Alejo Mi MD Unavailable [phone] Encounter Details Date Type Department Care Team (Late st Contact Info) Description 10/23/2023 Orders Only [facility] Oncology [address] [place] [address] Eren Cr MD [address] [place] [address] Neuroendocrine carcinoma (HCC) (Primary Dx); Malignant neoplasm [...] file 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 [place] [address] * (ABNORMAL) Comprehensive metabolic panel (10/29/2023 10:33 AM CDT) Sodium 139 135 - 145 mmol/L Comment:Testing performed by : [address] [address] Potassium, pl 4.2 3.3 - 4.9 mmol/L [facility] Chloride 109 97 - 110 mmol/L [facility] CO2 25 22 - 32 mmol/L [facility] Anion gap 5 2 - 15 mmol/L [facility] BUN 15 6 - 25 mg/dL [facility] Creatinine 1.11(H) 0.60 - 1.10 mg/dL [facility] Glucose 91 70 - 199 mg/dL [facility] Comment: Interpretive Data Fasting glucose [...] 10.1 8.5 - 10.3 mg/dL [facility] Bilirubin, total 0.5 0.1 - 1.2 mg/dL [facility] Protein, pl 6.2(L) 6.5 - 8.5 g/dL [facility] Albumin 3.9 3.5 - 5.0 g/dL [facility] Alk phos 66 40 - 130 Units/L [facility] ALT 19 7 - 45 Units/L [facility] AST 27 10 - 45 Units/L [facility] Blood 10/29/2023 10:3 3 AM CDT 10/29/2023 10:35 AM CDT us Eren Cr MD LAB BLOOD ORDERABLES Final Re sult [facility] One [facility] [place] [address] * (ABNORMAL) CBC with auto differential (10/29/2023 10:33 AM CDT) [facility] WBC 3.1(L) 3.8 - 9.9 K/cumm Comment:Testing performed by : [facility], [address] [place] [address] Hgb 10.9(L) 11.9 - 15.5 g/dL [facility] Comment:Testing performed by : [address] [address] Hct 33.3(L) 35.6 - 45.5 % [facility] Comment:Testing performed by : [address] [address] Plt 94(L) 150 - 400 K/cumm [facility] Comment:Testing performed by : [address] [address] MPV 10.4 9.1 - 12.3 fL [facility] RBC 3.46(L) 3.90 - 5.20 M/cumm [facility] MCV 96.2 81.3 - 96.4 fL [facility] MCH 31.5 27.1 - 33.3 pg [facility] MCHC 32.7 32.3 - 35.7 g/dL [facility] RDW CV 14.7 11.1 - 14.9 % [facility] RDW SD 51.2(H) 35.7 - 48.1 fL [facility] NRBC abs 0.00 0.00 - 0.01 K/cumm [facility] Blood 10/29/2023 10:3 3 AM CDT 10/29/2023 10:35 AM CDT Eren Cr MD LAB BLOOD ORDERABLES Final Re sult [facility] One [facility] [place] [address] * (ABNORMAL) Chromogranin A (10/29/2023 10:33 AM CDT) Chromogranin A 667(H) <93 ng/mL [place] [facility] Comment: Impaired renal or hepatic function or treatment with proton pump inhibitors may result in artifactual elevations of Chromogranin A. ADDITIONAL INFORMATION The testing method is a homogeneous time-resolved immunofluorescent assay manufactured by [employer] and performed on the [place] [employer]or Compact Plus. ? Values obtained with different [...] examination and other findings. Test Performed by: [facility] [address] [place] [address] Sap Analyst: Immanuel Novak M.D. Ph.D.; CLIA# [id number] Blood 10/29/2023 10:3 3 AM CDT 10/29/2023 12:05 PM CDT Eren Cr MD LAB BLOOD ORDERABLES Final Re sult Performing Organization Address City/[facility]/ZIP Co de Phone Number JASON [facility] [place] [address] [place] [facility] * (ABNORMAL) Vitamin D 25 hydroxy (10/29/2023 10:33 AM CDT) Pathologist [facility] Vitamin D 25-OH 21(L) 30 - 80 ng/mL Blood 10/29/2023 10:3 3 AM CDT 10/29/2023 11:49 AM CDT Eren Cr MD LAB BLOOD ORDERABLES Final Re sult Performing Organization Address [facility] Co de Phone Number J[facility]ON [facility] [place] [address] * Phosphorus (10/29/2023 10:33 AM CDT) Phosphorus, pl 2.3 2.3 - 4.5 mg/dL Comment:Testing performed by : [facility], [address] [place] [address] Blood 10/29/2023 10:3 3 AM CDT 10/29/2023 10:35 AM CDT us Eren Cr MD LAB BLOOD ORDERABLES Final Re sult [facility] One [facility] [place] [address] * Lipid panel (10/29/2023 10:33 AM CDT) Pathologist [facility] Cholesterol 121 30 - 199 mg/dL Comment: [...] revised on 2018. HDL 50 >=40 mg/dL [facility] Comment: Interpretive [...] on 2018. LDL, calculated 48 <=129 mg/dL [facility] Comment: [...] revised on 2018. Non-HDL Cholesterol 71 mg/dL [facility] Comment: Interpretive [...] last revised on 2018. Chol/HDL ratio 2 [facility] Blood 10/29/2023 10:3 3 AM CDT 10/29/2023 11:49 AM CDT Eren Cr MD LAB BLOOD ORDERABLES Final Re sult Performing Organization Address [facility] de Phone Number [facility] One [facility] [place] [address] * Protein / creatinine ratio, urine, random (10/29/2023 10:30 AM CDT) Protein, ur, quant 26.2 mg/dL Comment: Interpretive Data No reference range established. Current interpretive data was last revised 2018. Creatinine Ur 167.8 mg/dL [facility] Comment: Interpretive Data No reference range established. Current interpretive data was last revised 2018. Protein/creatinin e ratio 156.1 0.0 - 180.0 mg/g CR [facility] Urine 10/29/2023 10:3 0 AM CDT 10/29/2023 11:49 AM CDT Eren Cr MD LAB URINE ORDERABLES Final Re sult Performing Organization Address City/[facility]/ZIP Co de Phone Number [facility] One [facility] [place] [address] documented in this encounter Visit Diagnoses Diagnosis [...] 24 documented in this encounter Care Teams Lime Kiln Tender Relationship Specialty Start Date End Date Julio César Briseno MD PCP - General 10/01/16 Eren Cr MD Referring Physician Medical Oncology 11/25/18 Yohana Bowen MD Radiation Oncologist Radiation Oncology 11/25/18 Alejo Mi MD [address] [place] [address] Referring Physician Nephrology 03/07/23 documented as of this encounter
--- OUTSIDE RECORDS SUMMARY | 2024-06-26 01:54 | XMS_ITS | Encounter Summary ---
Author Organization [facility] Address [address] [place] [address] Phone Care Team Providers Care Substation Designer Name Role Phone Julio César Briseno MD Primary Care Provider Eren Cr MD Unavailable [phone] Yohana Bowen MD Unavailable Alejo Mi MD Unavailable [phone] Encounter Details Date Type Department Care Team (Late st Contact Info) Description 09/25/2023 Orders Only [facility] Oncology [address] [place] [address] Eren Cr MD [address] [place] [address] Neuroendocrine carcinoma (HCC) (Primary Dx) Social History [...] file Legal Sex Female 2:[address] 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
--- OUTSIDE RECORDS SUMMARY | 2024-06-26 01:54 | XMS_ITS | Encounter Summary ---
Author Organization [facility] Address [address] [place] [address] Phone Care Team Providers Care Jig Grinder Name Role Phone Julio César Briseno MD Primary Care Provider Eren Cr MD Unavailable [phone] Yohana Bowen MD Unavailable Alejo Mi MD Unavailable [phone] Encounter Details Date Type Department Care Team (Latest Contact Info) Description 11/13/2023 1:00 PM CDT Clinical Support [facility] Oncology [address] [facility] Advanced Medicine 7th [place] [address] [place] [address] Neuroendocrine carcinoma (HCC); Malignant neoplasm [...] on file 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
--- OUTSIDE RECORDS SUMMARY | 2024-06-26 01:54 | XMS_ITS | Encounter Summary ---
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 Gender Identity Not on file Sexual [...] 1 tablet (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) by mouth metal sorter before breakfast 90 tablet 3 11/28/2023 lidocaine-priloca [...] sodium chloride ([facility] sodium chloride 0.9%) injectionIndicati ons:line care Infuse 10 mL into a venous catheter once a week On saturday 4 0.9 % sodium chloride (sodium chloride 0.9%) 0.9% infusion 05/22/2023 4 ascorbic acid, vitamin C, 500 mg capsuleIndication s:supplement Take 1 tablet by mouth metal sorter before breakfast 07/04/2016 4 clotrimazole-beta methasone (LOTRISONE) cream Apply 1 Application topically daily as needed (rash) 4 coenzyme [id number] E 100-5 mg-unit capsuleIndication s:supplement Take 1 tablet by mouth metal sorter before breakfast 4 diphenoxylate-atr opine (LOMOTIL) 2.5-0.025 [...] and 1 hour after each dose).?? Avoid Kalama's Wort, grapefruit products and [place] oranges while on treatment. placed on hold [...] Re sult Performing Organization Address [facility] de Phone Number JASON LEAVITT [facility] Department [place] [address] * (ABNORMAL) eGFR (12/24/2023 10:20 AM CDT) [...] ORDERABLES Final Re sult JASON BLACKH [facility] Department [place] [address] * Differential, auto (12/24/2023 10:20 AM CDT) Neutrophil abs 2.0 1.5 - 6.5 K/cumm Comment:Testing performed by : [facility], [address] [place] [address] Imm gran abs 0.0 0.0 - 0.1 K/cumm [facility] Lymphocyte abs 1.5 0.8 - 3.3 K/cumm [facility] Monocyte abs 0.5 0.2 - 0.8 K/cumm [facility] Eosinophil abs 0.2 0.0 - 0.5 K/cumm [facility] Basophil abs 0.0 0.0 - 0.1 K/cumm [facility] Neutrophil pct 47.8 % [facility] Comment: Interpretive Data Percent cell count reference ranges are not reported, since discordance with absolute values may lead to misinterpretation of CBC data. Current Interpretive Data was last revised on 2017. Imm gran pct 0.2 % [facility] Comment: Interpretive Data Percent cell count reference ranges are not reported, since discordance with absolute values may lead to misinterpretation of CBC data. Current Interpretive Data was last revised on 2017. Lymphocyte pct 35.9 % [facility] Comment: Interpretive Data Percent cell count reference ranges are not reported, since discordance with absolute values may lead to misinterpretation of CBC data. Current Interpretive Data was last revised on 2017. Monocyte pct 11.5 % [facility] Comment: Interpretive Data Percent cell count reference ranges are not reported, since discordance with absolute values may lead to misinterpretation of CBC data. Current Interpretive Data was last revised on 2017. Eosinophil pct 3.9 % [facility] Comment: Interpretive Data Percent cell count reference ranges are not reported, since discordance with absolute values may lead to misinterpretation of CBC data. Current Interpretive Data was last revised on 2017. Basophil pct 0.7 % [facility] Comment: Interpretive Data Percent cell count reference ranges are not reported, since discordance with absolute values may lead to misinterpretation of CBC data. Current Interpretive Data was last revised on 2017. Blood 12/24/2023 10:2 0 AM CDT 12/24/2023 10:21 AM CDT us Eren Cr MD LAB BLOOD ORDERABLES Final Re sult [facility] Department [place] [address] * (ABNORMAL) CBC with auto differential (12/24/2023 10:20 AM CDT) WBC 4.1 3.8 - 9.9 K/cumm Comment:Testing performed by : [address] [address] Hgb 12.3 11.9 - 15.5 g/dL [facility] Comment:Testing performed by : [address] [address] Hct 37.9 35.6 - 45.5 % [facility] Comment:Testing performed by : [address] [address] Plt 114(L) 150 - 400 K/cumm [facility] Comment:Testing performed by : [address] [address] MPV 9.9 9.1 - 12.3 fL [facility] RBC 3.97 3.90 - 5.20 M/cumm [facility] MCV 95.5 81.3 - 96.4 fL [facility] MCH 31.0 27.1 - 33.3 pg [facility] MCHC 32.5 32.3 - 35.7 g/dL [facility] RDW CV 14.9 11.1 - 14.9 % [facility] RDW SD 51.9(H) 35.7 - 48.1 fL [facility] NRBC abs 0.00 0.00 - 0.01 K/cumm [facility] Blood 12/24/2023 10:2 0 AM CDT 12/24/2023 10:21 AM CDT us Eren Cr MD LAB BLOOD ORDERABLES Final Re sult [facility] Department [place] [address] * (ABNORMAL) Comprehensive metabolic panel (12/24/2023 10:20 AM CDT) Sodium 140 135 - 145 mmol/L Comment:Testing performed by : [facility], [address] [place] [address] Potassium, pl 4.2 3.3 - 4.9 mmol/L [facility] Chloride 111(H) 97 - 110 mmol/L [facility] CO2 21(L) 22 - 32 mmol/L [facility] Anion gap 8 2 - 15 mmol/L [facility] BUN 17 6 - 25 mg/dL [facility] Creatinine 1.32(H) 0.60 - 1.10 mg/dL [facility] Glucose 143 70 - 199 mg/dL [facility] Calcium 9.5 8.5 - 10.3 mg/dL [facility] Bilirubin, total 0.5 0.1 - 1.2 mg/dL [facility] Protein, pl 6.2(L) 6.5 - 8.5 g/dL [facility] Albumin 3.9 3.5 - 5.0 g/dL [facility] Alk phos 70 40 - 130 Units/L [facility] ALT 17 7 - 45 Units/L [facility] AST 28 10 - 45 Units/L [facility] Blood 12/24/2023 10:2 0 AM CDT 12/24/2023 10:21 AM CDT Eren Cr MD LAB BLOOD ORDERABLES Final Re sult Performing Organization Address [facility] [place] [address] * Magnesium (12/24/2023 10:20 AM CDT) Magnesium 1.6 1.4 - 2.5 mg/dL Comment:Testing performed by : [facility], [address] [place] [address] Blood 12/24/2023 10:2 0 AM CDT 12/24/2023 10:21 AM CDT Eren Cr MD LAB BLOOD ORDERABLES Final Re sult Performing Organization Address [facility] Co de Phone Number [facility] [place] [address] * (ABNORMAL) TSH (12/24/2023 10:20 AM CDT) Thyroid Stimulating Hormone 6.46(H) 0.30 - 4.20 mcIUnit/mL Blood 12/24/2023 10:2 0 AM CDT 12/24/2023 12:12 PM CDT Eren Cr MD LAB BLOOD ORDERABLES Final Re sult Performing Organization Address [facility] [place] [address] * Lipid panel (12/24/2023 10:20 AM CDT) [...] on 2018. LDL, calculated 51 <=129 mg/dL [facility] Comment: [...] revised on 2018. Non-HDL Cholesterol 80 mg/dL [facility] Comment: Interpretive [...] ratio 3 [facility] Blood 12/24/2023 10:2 0 AM CDT 12/24/2023 12:12 PM CDT Eren Cr MD LAB BLOOD ORDERABLES Final Re sult Performing Organization Address [facility] Co de Phone Number [facility] [place] [address] * Phosphorus (12/24/2023 10:20 AM CDT) Phosphorus, pl 2.6 2.3 - 4.5 mg/dL Comment:Testing performed by : [facility], [address] [place] [address] Blood 12/24/2023 10:2 0 AM CDT 12/24/2023 10:21 AM CDT Eren Cr MD LAB BLOOD ORDERABLES Final Re sult Performing Organization Address [facility] de Phone Number [facility] [place] [address] * (ABNORMAL) Vitamin D 25 hydroxy (12/24/2023 10:20 AM CDT) [facility] Vitamin D 25-OH 21(L) 30 - 80 ng/mL Blood 12/24/2023 10:2 0 AM CDT 12/24/2023 12:12 PM CDT Eren Cr MD LAB BLOOD ORDERABLES Final Re sult Performing Organization Address [facility] [place] [address] * (ABNORMAL) Chromogranin A (12/24/2023 10:20 AM CDT) Chromogranin A 2819(H) <93 ng/mL [facility] Comment: Impaired renal or hepatic function or treatment with proton pump inhibitors may result in artifactual elevations of Chromogranin A. ADDITIONAL INFORMATION The testing method is a homogeneous time-resolved immunofluorescent assay manufactured by [employer] and performed on the [employer] Kryptor Compact Plus. ? Values obtained with [...] examination and other findings. 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
--- OUTSIDE RECORDS SUMMARY | 2024-06-26 01:54 | XMS_ITS | Encounter Summary ---
Author Organization [facility] Address [address] [place] [address] Phone Care Team Providers Care Benefits Coordinator Name Role Phone Julio César Briseno MD Primary Care Provider Eren Cr MD Unavailable [phone] Yohana Bowen MD Unavailable Alejo Mi MD Unavailable Encounter Details Date Type Department Care Team (Late st Contact Info) Description 09/30/2023 Orders Only [facility] Oncology [address] [place] [address] Eren Cr MD [address] [place] [address] Neuroendocrine carcinoma (HCC) (Primary Dx); Malignant neoplasm [...] on file 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
--- OUTSIDE RECORDS SUMMARY | 2024-06-26 01:54 | XMS_ITS | Encounter Summary ---
Author Organization [facility] Address [address] [place] [address] Phone Care Team Providers Care Railroad Mechanic Name Role Phone Julio César Briseno MD Primary Care Provider Eren Cr MD Unavailable [phone] Yohana Bowen MD Unavailable Alejo Mi MD Unavailable [phone] Encounter Details Date Type Department Care Team (Late st Contact Info) Description 11/26/2023 Orders Only [facility] Oncology [address] [place] [address] Eren Cr MD [address] [place] [address] Neuroendocrine carcinoma (HCC) (Primary Dx); Malignant neoplasm [...] file 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 Gender Identity Not on file Sexual [...] Final Re sult JASON [facility] Department [place] [address] * Magnesium (12/24/2023 10:20 AM CDT) Magnesium 1.6 1.4 - 2.5 mg/dL Comment:Testing performed by : [facility], [address] [place] [address] Blood 12/24/2023 10:2 0 AM CDT 12/24/2023 10:21 AM CDT us Eren Cr MD LAB BLOOD ORDERABLES Final Re sult [facility] Department [place] [address] * (ABNORMAL) Comprehensive metabolic panel (12/24/2023 10:20 AM CDT) Sodium 140 135 - 145 mmol/L Comment:Testing performed by : [facility], [address] [place] [address] Potassium, pl 4.2 3.3 - 4.9 mmol/L [facility] Chloride 111(H) 97 - 110 mmol/L [facility] CO2 21(L) 22 - 32 mmol/L [facility] Anion gap 8 2 - 15 mmol/L [facility] BUN 17 6 - 25 mg/dL [facility] Creatinine 1.32(H) 0.60 - 1.10 mg/dL [facility] Glucose 143 70 - 199 mg/dL [facility] Comment: Interpretive Data Fasting glucose [...] Calcium 9.5 8.5 - 10.3 mg/dL [facility] Bilirubin, total 0.5 0.1 - 1.2 mg/dL [facility] Protein, pl 6.2(L) 6.5 - 8.5 g/dL [facility] Albumin 3.9 3.5 - 5.0 g/dL [facility] Alk phos 70 40 - 130 Units/L [facility] ALT 17 7 - 45 Units/L [facility] AST 28 10 - 45 Units/L [facility] Blood 12/24/2023 10:2 0 AM CDT 12/24/2023 10:21 AM CDT Eren Cr MD LAB BLOOD ORDERABLES Final Re sult [facility] Department [place] [address] * (ABNORMAL) CBC with auto differential (12/24/2023 10:20 AM CDT) [facility] WBC 4.1 3.8 - 9.9 K/cumm Comment:Testing performed by : [address] [address] Hgb 12.3 11.9 - 15.5 g/dL [facility] Comment:Testing performed by : [address] [address] Hct 37.9 35.6 - 45.5 % [facility] Comment:Testing performed by : [address] [address] Plt 114(L) 150 - 400 K/cumm [facility] Comment:Testing performed by : [address] [address] MPV 9.9 9.1 - 12.3 fL [facility] RBC 3.97 3.90 - 5.20 M/cumm [facility] MCV 95.5 81.3 - 96.4 fL [facility] MCH 31.0 27.1 - 33.3 pg [facility] MCHC 32.5 32.3 - 35.7 g/dL [facility] RDW CV 14.9 11.1 - 14.9 % [facility] RDW SD 51.9(H) 35.7 - 48.1 fL [facility] NRBC abs 0.00 0.00 - 0.01 K/cumm [facility] Blood 12/24/2023 10:2 0 AM CDT 12/24/2023 10:21 AM CDT Eren Cr MD LAB BLOOD ORDERABLES Final Re sult Performing Organization Address City/[facility]/ZIP Co de Phone Number JASON BLACK [facility] Department [place] [address] * (ABNORMAL) Chromogranin A (12/24/2023 10:20 AM CDT) Chromogranin A 2819(H) <93 ng/mL [facility] Comment: Impaired renal or hepatic function or treatment with proton pump inhibitors may result in artifactual elevations of Chromogranin A. ADDITIONAL INFORMATION The testing method is a homogeneous time-resolved immunofluorescent assay manufactured by [email or web address] and performed on the [employer] KrVaxInnateor Compact Plus. ? Values obtained with different [...] examination and other findings. Test Performed by: [place] [address] Metal Weigher: Carley Tony Ph.D.; CLIA# [id number] Blood 12/24/2023 10:2 0 AM CDT 12/24/2023 2:46 PM CDT Eren Cr MD LAB BLOOD ORDERABLES Final Re sult [facility] Department [place] [address] [facility] * (ABNORMAL) Vitamin D 25 hydroxy (12/24/2023 10:20 AM CDT) Vitamin D 25-OH 21(L) 30 - 80 ng/mL Blood 12/24/2023 10:2 0 AM CDT 12/24/2023 12:12 PM CDT Eren Cr MD LAB BLOOD ORDERABLES Final Re sult Performing Organization Address [facility] Co de Phone Number JASON [facility] Department [place] [address] * Phosphorus (12/24/2023 10:20 AM CDT) Phosphorus, pl 2.6 2.3 - 4.5 mg/dL Comment:Testing performed by : [facility], [address] [place] [address] Blood 12/24/2023 10:2 0 AM CDT 12/24/2023 10:21 AM CDT Eren Cr MD LAB BLOOD ORDERABLES Final Re sult Performing Organization Address [facility] de Phone Number JASON [facility] [place] [address] * Lipid panel (12/24/2023 10:20 AM CDT) [...] revised on 2018. Triglycerides 145 <=149 mg/dL [facility] Comment: Interpretive Data Ages < [...] revised on 2018. HDL 52 >=40 mg/dL [facility] Comment: Interpretive Data Ages < [...] on 2018. LDL, calculated 51 <=129 mg/dL [facility] Comment: Interpretive Data Ages < [...] last revised on 2018. Chol/HDL ratio 3 [facility] Blood 12/24/2023 10:2 0 AM CDT 12/24/2023 12:12 PM CDT us Eren Cr MD LAB BLOOD ORDERABLES Final Re sult [facility] [place] [address] documented in this encounter Visit Diagnoses Diagnosis [...] 24 documented in this encounter Care Teams Railroad Mechanic Relationship Specialty Start Date End Date Julio César Briseno MD PCP - General 10/01/16 Eren Cr MD Referring Physician Medical Oncology 11/25/18 Yohana Bowen MD Radiation Oncologist Radiation Oncology 11/25/18 Alejo Mi MD [address] [address] Referring Physician Nephrology 03/07/23 documented as of this encounter
--- OUTSIDE RECORDS SUMMARY | 2024-06-26 01:54 | XMS_ITS | Encounter Summary ---
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 Gender Identity Not on file Sexual Orientation [...] mouth nightly 0.9 % sodium chloride ([facility] sodium chloride 0.9%) injectionIndicati ons:line care Infuse 10 mL into a venous catheter once a week On saturday 4 0.9 % sodium chloride (sodium chloride 0.9%) 0.9% infusion 05/22/2023 4 ascorbic acid, vitamin C, 500 mg capsuleIndication s:supplement 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 Avoid Roselle's Wort, grapefruit products and Bradford oranges while on treatment. placed on hold [...] sult [facility] One [facility] [place] [address] * (ABNORMAL) Differential, auto (09/26/2023 1:03 PM CDT) Pathologist [facility] Neutrophil abs 2.4 1.5 - 6.5 K/cumm Comment:Testing performed by : [facility], [address] [place] [address] Imm gran abs 0.0 0.0 - 0.1 K/cumm [facility] Lymphocyte abs 0.5(L) 0.8 - 3.3 K/cumm [facility] Monocyte abs 0.4 0.2 - 0.8 K/cumm [facility] Eosinophil abs 0.2 0.0 - 0.5 K/cumm [facility] Basophil abs 0.0 0.0 - 0.1 K/cumm [facility] Neutrophil pct 68.4 % [facility] Comment: Interpretive Data Percent cell count reference ranges are not reported, since discordance with absolute values may lead to misinterpretation of CBC data. Current Interpretive Data was last revised on 2017. Imm gran pct 0.3 % [facility] Comment: Interpretive Data Percent cell count reference ranges are not reported, since discordance with absolute values may lead to misinterpretation of CBC data. Current Interpretive Data was last revised on 2017. Lymphocyte pct 12.9 % [facility] Comment: Interpretive Data Percent cell count reference ranges are not reported, since discordance with absolute values may lead to misinterpretation of CBC data. Current Interpretive Data was last revised on 2017. Monocyte pct 12.3 % [facility] Comment: Interpretive Data Percent cell count reference ranges are not reported, since discordance with absolute values may lead to misinterpretation of CBC data. Current Interpretive Data was last revised on 2017. Eosinophil pct 5.3 % [facility] Comment: Interpretive Data Percent cell count reference ranges are not reported, since discordance with absolute values may lead to misinterpretation of CBC data. Current Interpretive Data was last revised on 2017. Basophil pct 0.8 % [facility] Comment: Interpretive Data Percent cell count reference ranges are not reported, since discordance with absolute values may lead to misinterpretation of CBC data. Current Interpretive Data was last revised on 2017. Blood 09/26/2023 1:03 PM CDT 09/26/2023 1:03 PM CDT us Eren Cr MD LAB BLOOD ORDERABLES Final Re sult [facility] Department [place] [address] * Magnesium (09/26/2023 1:03 PM CDT) Pathologist [facility] Magnesium 1.7 1.4 - 2.5 mg/dL Comment:Testing performed by : [facility], [address] [place] [address] Blood 09/26/2023 1:03 PM CDT 09/26/2023 1:03 PM CDT Eren Cr MD LAB BLOOD ORDERABLES Final Re sult Performing Organization Address [facility] Co de Phone Number [facility] [place] [address] * (ABNORMAL) TSH (09/26/2023 1:03 PM CDT) Thyroid Stimulating Hormone 5.57(H) 0.30 - 4.20 mcIUnit/mL Blood 09/26/2023 1:03 PM CDT 09/26/2023 3:38 PM CDT Eren Cr MD LAB BLOOD ORDERABLES Final Re sult Performing Organization Address [facility] de Phone Number [facility] [place] [place] [address] * (ABNORMAL) Lipid panel (09/26/2023 1:03 PM [...] revised on 2018. Triglycerides 173(H) <=149 mg/dL [facility] Comment: [...] revised on 2018. HDL 56 >=40 mg/dL [facility] Comment: Interpretive Data Ages [...] 2018. LDL, calculated 45 <=129 mg/dL [facility] Comment: [...] revised on 2018. Non-HDL Cholesterol 80 mg/dL [facility] Comment: [...] last revised on 2018. Chol/HDL ratio 2 [facility] Blood 09/26/2023 1:03 PM CDT 09/26/2023 3:38 PM CDT Eren Cr MD LAB BLOOD ORDERABLES Final Re sult [facility] Department [place] [address] * Phosphorus (09/26/2023 1:03 PM CDT) [facility] Phosphorus, pl 2.8 2.3 - 4.5 mg/dL Comment:Testing performed by : [facility], [address] [place] [address] Blood 09/26/2023 1:03 PM CDT 09/26/2023 1:03 PM CDT Eren Cr MD LAB BLOOD ORDERABLES [place] [address] * (ABNORMAL) Vitamin D 25 hydroxy (09/26/2023 1:03 PM CDT) [facility] Vitamin D 25-OH 22(L) 30 - 80 ng/mL Blood 09/26/2023 1:03 PM CDT 09/26/2023 3:38 PM CDT Eren Cr MD LAB BLOOD ORDERABLES Final Re sult Performing Organization Address [facility] [place] [address] * (ABNORMAL) CBC with auto differential (09/26/2023 1:03 PM CDT) [facility] WBC 3.6(L) 3.8 - 9.9 K/cumm Comment:Testing performed by : [address] [address] Hgb 11.8(L) 11.9 - 15.5 g/dL [facility] Comment:Testing performed by : [address] [address] Hct 35.8 35.6 - 45.5 % [facility] Comment:Testing performed by : [address] [address] Plt 90(L) 150 - 400 K/cumm [facility] Comment:Testing performed by : [address] [address] MPV 11.1 9.1 - 12.3 fL [facility] RBC 3.71(L) 3.90 - 5.20 M/cumm [facility] MCV 96.5(H) 81.3 - 96.4 fL [facility] MCH 31.8 27.1 - 33.3 pg [facility] MCHC 33.0 32.3 - 35.7 g/dL [facility] RDW CV 14.9 11.1 - 14.9 % [facility] RDW SD 52.3(H) 35.7 - 48.1 fL [facility] NRBC abs 0.00 0.00 - 0.01 K/cumm [facility] Blood 09/26/2023 1:03 PM CDT 09/26/2023 1:03 PM CDT us Eren Cr MD LAB BLOOD ORDERABLES Final Re sult [facility] Department [place] [address] * (ABNORMAL) Comprehensive metabolic panel (09/26/2023 1:03 PM CDT) Sodium 138 135 - 145 mmol/L Comment:Testing performed by : [facility], [address] [place] [address] Potassium, pl 4.3 3.3 - 4.9 mmol/L [facility] Chloride 105 97 - 110 mmol/L [facility] CO2 27 22 - 32 mmol/L [facility] Anion gap 6 2 - 15 mmol/L [facility] BUN 11 6 - 25 mg/dL [facility] Creatinine 1.24(H) 0.60 - 1.10 mg/dL [facility] [...] 2022. Calcium 9.8 8.5 - 10.3 mg/dL [facility] Bilirubin, total 0.7 0.1 - 1.2 [...] sult [facility] [place] [address] * (ABNORMAL) Chromogranin A (09/26/2023 1:03 PM CDT) Chromogranin A 2170(H) <93 ng/mL [facility] Comment: Impaired renal or hepatic [...] a homogeneous time-resolved immunofluorescent assay manufactured by [employer] and performed on the [employer] Kryptor Compact Plus. ? Values obtained with different assay methods or kits may be different and cannot be used interchangeably. ? Test results cannot be interpreted as absolute evidence for the presence or absence of malignant disease. Test Performed by: [facility] - [facility] [address] [place] [address] Hospice Coordinator: Immanuel Novak M.D. 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
--- OUTSIDE RECORDS SUMMARY | 2024-06-26 01:54 | XMS_ITS | Encounter Summary ---
Author Organization [facility] Address [address] [place] [address] Phone Care Team Providers Care Speech Communication Instructor Name Role Phone Julio César Briseno MD Primary Care Provider [phone] Eren rC MD Unavailable Yohana Bowen MD Unavailable TaylorAlejo Ramos MD Unavailable [phone] Reason for Visit * Episode Based Medications (Routine) - Closed Specialty Diagnoses / Procedures Referred By Contac t Referred To Contact Diagnoses Neuro-endocrine carcinoma (HCC) Procedures study [id number] phase III cabozantinib Eren Cr MD [address] [place] [address] Phone: tel: fax: [facility] and [facility] [address] 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 Gender Identity Not on file Sexual [...] Ordered Date First Ordered Date [id number] cabozantinib (/[id number]) tablet 20 mg 1 11/26/2023 Appointment Requests Count Last Ordered Date Fi rst Ordered Date ONCBCN TAKE HOME STUDY DRUG APPT 1 11/26/19 24 documented in this encounter Care Teams Speech Communication Instructor Relationship Specialty Start Date End Date Julio César Briseno MD PCP - General 10/01/16 Eren Cr MD Referring Physician Medical Oncology 11/25/18 Yohana Bowen MD Radiation Oncologist Radiation Oncology 11/25/18 Alejo Mi MD [address] [place] [address] Referring Physician Nephrology 03/07/23 documented as of this encounter
--- OUTSIDE RECORDS SUMMARY | 2024-06-26 01:54 | XMS_ITS | Encounter Summary ---
Author Organization [facility] Address [address] [place] [address] Phone Care Team Providers Care Dining Room Supervisor Name Role Phone Julio César Briseno MD Primary Care Provider [phone] Eren Cr MD Unavailable [phone] Yohana Bowen MD Unavailable [place] Ramos MD Unavailable [phone] Reason for Visit * Episode Based Medications (Routine) - Closed Specialty Diagnoses / Procedures Referred By Contac t Referred To Contact Diagnoses Neuro-endocrine carcinoma (HCC) Procedures study [id number] phase III cabozantinib Eren Cr MD [address] [facility] [address] [place] [address] Phone: tel: fax: [facility] [address] [facility] 7th [place] [address] Phone: tel: Referral ID Status Reason Start Date Expiration Date Visits Re quested Visits Authorized [id number] Closed 06/21/2021 06/26/2024 1 99 Encounter Details Date Type Department Care Team (Late st Contact Info) Description 09/26/2023 1:45 PM CDT Office Visit [facility] Oncology [address] [place] [address] Eren Cr MD [address] [facility] [address] [place] [address] Neuroendocrine carcinoma (HCC) (Primary Dx); Malignant neoplasm [...] on file 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 - 07/2015 Colonoscopy ([facility]) - hemorrhoids, ileitis, [...] Exam Vitals reviewed. Exam conducted with a cleaner and presser present. Constitutional: General: She is not in [...] D checked 06/11 16. Pt on ergocalciferol 73255 units weekly. - followed by nephrology 6. [...] REQUEST 1 024 ONCBCN INJECTION APPOINTMENT REQUEST 09/06 documented in this encounter Care Teams Dining Room Supervisor Relationship Specialty Start Date End Date Julio César Briseno MD PCP - General 10/01/16 Eren Cr MD Referring Physician Medical Oncology 11/25/18 Yohana Bowen MD Radiation Oncologist Radiation Oncology 11/25/18 Alejo Mi MD [address] [place] [address] Referring Physician Nephrology 03/07/23 documented as of this encounter
--- OUTSIDE RECORDS SUMMARY | 2024-06-26 01:54 | XMS_ITS | Encounter Summary ---
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 [address] [place] [address] Phone: tel: fax: [address] [address] Referral ID Status Reason Start Date Expiration Date Visits Re quested Visits Authorized [id number] Closed 10/18/2023 11/16/2024 1 1 Encounter Details Date Type Department Care Team (Late st Contact Info) Description 10/18/2023 Orders Only [facility] Oncology [address] [place] [address] Eren Cr MD [address] 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
--- OUTSIDE RECORDS SUMMARY | 2024-06-26 01:54 | XMS_ITS | Encounter Summary ---
Author Organization [facility] Address [address] [place] [address] Phone Care Team Providers Care In Service Educator Name Role Phone Julio César Briseno MD Primary Care Provider [phone] Eren Cr MD Unavailable [phone] Yohana Bowen MD Unavailable [place] Ramos MD Unavailable [phone] Reason for Visit * Reason Comments Port Draw * Episode Based Medications (Routine) - Closed Specialty Diagnoses / Procedures Referred By Contac t Referred To Contact Diagnoses Neuro-endocrine carcinoma (HCC) Procedures study [id number] phase III cabozantinib Eren Cr MD [address] [facility] [address] [place] [address] Phone: tel: fax: [facility] and [facility] [address] [facility] 7th [place] [address] Phone: tel: Referral ID Status Reason Start Date Expiration Date Visits Re quested Visits Authorized [id number] Closed 06/21/2021 06/26/2024 1 99 Encounter Details Date Type Department Care Team (Latest Contact Info) Description 12/24/2023 10:15 AM CDT Clinical Support [facility] Oncology [address] [place] [address] Neuro-endocrine carcinoma (HCC) Social History Tobacco Use [...] on file 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
--- OUTSIDE RECORDS SUMMARY | 2024-06-26 01:54 | XMS_ITS | Encounter Summary ---
Author Organization [facility] Address [address] [place] [address] Phone Care Team Providers Care Supervisor Assembly Room Name Role Phone Julio César Briseno MD Primary Care Provider [phone] Eren Cr MD Unavailable [phone] Yohana Bowen MD Unavailable [place] Ramos MD Unavailable [phone] Reason for Visit * Episode Based Medications (Routine) - Closed Specialty Diagnoses / Procedures Referred By Contac t Referred To Contact Diagnoses Neuro-endocrine carcinoma (HCC) Procedures study [id number] phase III cabozantinib Eren Cr MD [address] [facility] 7A[address]C [address] [place] [address] Phone: tel: fax: [facility] at [facility] [address] 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 Greyson Reeves. [...] Medications Medication Instructions 0.9 % sodium chloride ([facility] sodium chloride 0.9%) injection 10 mL, intravenous, Weekly, On saturday 0.9 % sodium chloride (sodium chloride 0.9%) 0.9% infusion amLODIPine (NORVASC) 5 mg tablet ascorbic acid, vitamin C, 500 mg capsule 1 tablet, oral, Daily (early AM) cholecalciferol (VITAMIN D-3) 1,000 Units, oral, Daily clotrimazole-betamethasone (LOTRISONE) cream Apply 1 Application topically daily as needed (rash) coenzyme A08-ooocsgo E 100-5 mg-unit capsule 1 tablet, oral, [...] Weekly, Fluids every - Heparin to flush [facility] cabozantinib/placebo (/[id number]) 20 mg, oral, Nightly, Take on an empty stomach (no food for 2 hours before and 1 hour after each dose). Avoid Jas's Wort, grapefruit products and [place] oranges while on treatment. placed on hold [...] Exam Vitals reviewed. Exam conducted with a live out nanny present. Constitutional: General: She is not in [...] She missed three days of her treatment; review coordinator aware. - We reviewed her labs notable [...] return on 11/12 (day of CT) to [facility] for labs +/- IVF. If she is able to control her diarrhea and stay well hydrated, we discussed possibly transitioning to monthly IVF to coincide with her ROV if we are able. 4. Hypothyroidism with TSH elevated - Managed per endocrinology. 5. Vitamin D insufficiency/Deficiency - Vit D checked 06/11 16. Pt on ergocalciferol [address]1932 units weekly. -- she states she is [...] assessment: 07/12/22 [facility] No change in treatment plan Cosigned by Eren Cr MD at 10/30/2023 12:04 PM CDT documented in this encounter Plan of Treatment Not on file documented as of this encounter Results * Magnesium (11/26/2023 11:20 AM CDT) Magnesium 1.7 1.4 - 2.5 mg/dL Comment:Testing performed by : [facility], [address] [place] [address] Blood 11/26/2023 11:2 0 AM CDT 11/26/2023 11:21 AM CDT Eren Cr MD LAB BLOOD ORDERABLES Final Re sult [facility] One [facility] [place] [address] * (ABNORMAL) Comprehensive metabolic panel (11/26/2023 11:20 AM CDT) Sodium 137 135 - 145 mmol/L Comment:Testing performed by : [facility], [address] [place] [address] Potassium, pl 4.3 3.3 - 4.9 mmol/L [facility] Chloride 105 97 - 110 mmol/L [facility] CO2 26 22 - 32 mmol/L [facility] Anion gap 6 2 - 15 mmol/L [facility] BUN 12 6 - 25 mg/dL [facility] Creatinine 1.21(H) 0.60 - 1.10 mg/dL [facility] Glucose 124 70 - 199 mg/dL [facility] Comment: Interpretive Data Fasting glucose [...] 2022. Calcium 10.1 8.5 - 10.3 mg/dL [facility] Bilirubin, total 0.6 0.1 - 1.2 mg/dL [facility] Protein, pl 6.3(L) 6.5 - 8.5 g/dL [facility] Albumin 4.2 3.5 - 5.0 g/dL [facility] Alk phos 67 40 - 130 Units/L [facility] ALT 20 7 - 45 Units/L [facility] AST 33 10 - 45 Units/L [facility] Blood 11/26/2023 11:2 0 AM CDT 11/26/2023 11:21 AM CDT Eren Cr MD LAB BLOOD ORDERABLES Final Re sult [facility] One [facility] [place] [address] * (ABNORMAL) CBC with auto differential (11/26/2023 11:20 AM CDT) Pathologist [facility] WBC 5.0 3.8 - 9.9 K/cumm Comment:Testing performed by : [address] [address] Hgb 10.7(L) 11.9 - 15.5 g/dL [facility] Comment:Testing performed by : [address] [address] Hct 33.5(L) 35.6 - 45.5 % [facility] Comment:Testing performed by : [address] [address] Plt 101(L) 150 - 400 K/cumm [facility] Comment:Testing performed by : [address] [address] MPV 10.7 9.1 - 12.3 fL [facility] RBC 3.46(L) 3.90 - 5.20 M/cumm [facility] MCV 96.8(H) 81.3 - 96.4 fL [facility] MCH 30.9 27.1 - 33.3 pg [facility] MCHC 31.9(L) 32.3 - 35.7 g/dL [facility] RDW CV 15.2(H) 11.1 - 14.9 % [facility] RDW SD 53.6(H) 35.7 - 48.1 fL [facility] NRBC abs 0.00 0.00 - 0.01 K/cumm [facility] Blood 11/26/2023 11:2 0 AM CDT 11/26/2023 11:21 AM CDT us Eren Cr MD LAB BLOOD ORDERABLES Final Re sult [facility] One [facility] [place] [address] * (ABNORMAL) Chromogranin A (11/26/2023 11:20 AM CDT) Chromogranin A 2279(H) <93 ng/mL [facility] Comment: Impaired renal or hepatic function or treatment with proton pump inhibitors may result in artifactual elevations of Chromogranin A. ADDITIONAL INFORMATION The testing method is a homogeneous time-resolved immunofluorescent assay manufactured by [employer] and performed on the [employer] Kryptor Compact Plus. ? Values obtained with [...] examination and other findings. Test Performed by: [address] [address] [place] Supervisor: Immanuel Novak M.D. Ph.D.; CLIA# [id number] Blood 11/26/2023 11:2 0 AM CDT 11/26/2023 2:16 PM CDT Eren Cr MD LAB BLOOD ORDERABLES Final Re sult Performing Organization Address [facility] Co de Phone Number [facility] [place] [address] [place] ref [facility] * (ABNORMAL) Vitamin D 25 hydroxy (11/26/2023 11:20 AM CDT) Vitamin D 25-OH 19(L) 30 - 80 ng/mL Blood 11/26/2023 11:2 0 AM CDT 11/26/2023 1:03 PM CDT Eren Cr MD LAB BLOOD ORDERABLES Final Re sult Performing Organization Address [facility] de Phone Number [facility] [place] [address] * Phosphorus (11/26/2023 11:20 AM CDT) Phosphorus, pl 2.8 2.3 - 4.5 mg/dL Comment:Testing performed by : [facility], [address] [place] [address] Blood 11/26/2023 11:2 0 AM CDT 11/26/2023 11:21 AM CDT Eren Cr MD LAB BLOOD ORDERABLES Final Re sult Performing Organization Address [facility] [place] [address] * Lipid panel (11/26/2023 11:20 AM CDT) [...] on 2018. Triglycerides 111 <=149 mg/dL [facility] Comment: Interpretive Data Ages [...] on 2018. HDL 55 >=40 mg/dL [facility] Comment: Interpretive Data Ages [...] 2018. LDL, calculated 55 <=129 mg/dL [facility] Comment: Interpretive Data Ages [...] revised on 2018. Non-HDL Cholesterol 77 mg/dL [facility] Comment: Interpretive Data Ages [...] revised on 2018. Chol/HDL ratio 2 [facility] Blood 11/26/2023 11:2 0 AM CDT 11/26/2023 1:03 PM CDT us Eren Cr MD LAB BLOOD ORDERABLES Final Re sult [facility] One [facility] Department [place] [address] * (ABNORMAL) Comprehensive metabolic panel (11/13/2023 11:25 AM CDT) Sodium 139 135 - 145 mmol/L Comment:Testing performed by : [facility], [address] [place] [phone] Potassium, pl 4.2 3.3 - 4.9 mmol/L [facility] Comment:Testing performed by : [facility], [address] [place] [phone] Chloride 109 97 - 110 mmol/L [facility] Comment:Testing performed by : [facility], [address] [place] [phone] CO2 25 22 - 32 mmol/L [facility] Comment:Testing performed by : [facility], [address] [place] [phone] Anion gap 5 2 - 15 mmol/L [facility] Comment:Testing performed by : [facility], [address] [place] [phone] BUN 13 6 - 25 mg/dL [facility] Comment:Testing performed by : [facility], [address] [place] [phone] Creatinine 1.03 0.60 - 1.10 mg/dL [facility] Comment:Testing performed by : [facility], [address] [place] [phone] Glucose 73 70 - 199 mg/dL [facility] Comment: Interpretive Data Fasting [...] was last revised 2022. Testing performed by: [facility], [address] [place] [phone] Calcium 9.6 8.5 - 10.3 mg/dL [facility] Comment:Testing performed by : [facility], [address] [place] [phone] Bilirubin, total 0.4 0.1 - 1.2 mg/dL [facility] Comment:Testing performed by : [facility], [address] [place] [phone] Protein, pl 6.0(L) 6.5 - 8.5 g/dL [facility] Comment:Testing performed by : [facility], [address] [place] [phone] Albumin 3.7 3.5 - 5.0 g/dL [facility] Comment:Testing performed by : [facility], [address] [place] [phone] Alk phos 73 40 - 130 Units/L [facility] Comment:Testing performed by : [facility], [address] [place] [phone] ALT 16 7 - 45 Units/L [facility] Comment:Testing performed by : [facility], [address] [place] [phone] AST 25 10 - 45 Units/L [facility] Comment:Testing performed by : [facility], [address] [place] [phone] Blood 11/13/2023 11:2 5 AM CDT 11/13/2023 11:29 AM CDT us Eren Cr MD LAB BLOOD ORDERABLES Final Re sult [facility] [place] [address] * (ABNORMAL) CBC with auto differential (11/13/2023 11:25 AM CDT) WBC 3.5(L) 3.8 - 9.8 K/cumm Comment:Testing performed by : [facility], [address] [place] [address] Hgb 11.0(L) 12.1 - 15.1 g/dL [facility] Comment:Testing performed by : [facility], [address] [place] [address] Hct 33.1(L) 36.1 - 44.3 % [facility] Comment:Testing performed by : [facility], [address] [place] [address] Plt 102(L) 140 - 440 K/cumm [facility] Comment:Testing performed by : [facility], [address] [place] [address] MPV 7.7 6.8 - 10.4 fL [facility] Comment:Testing performed by : [place] [address] RBC 3.41(L) 3.90 - 5.00 M/cumm [facility] Comment:Testing performed by : [place] [address] MCV 97.0 80.0 - 97.6 fL [facility] Comment:Testing performed by : [place] [address] MCH 32.3 26.7 - 33.7 pg [facility] Comment:Testing performed by : [place] [address] MCHC 33.3 32.7 - 35.5 g/dL [facility] Comment:Testing performed by : [place] [address] RDW CV 15.6(H) 11.8 - 14.6 % [facility] Comment:Testing performed by : [place] [address] NRBC abs 0.00 0.00 - 0.01 K/cumm [facility] Comment:Testing performed by : [place] [address] Blood 11/13/2023 11:2 5 AM CDT 11/13/2023 11:29 AM CDT Eren Cr MD LAB BLOOD ORDERABLES Final Re sult [facility] [place] [address] documented in this encounter Visit Diagnoses Diagnosis [...] 10/29/2023 documented in this encounter Care Teams Supervisor Assembly Room Relationship Specialty Start Date End Date Julio César Briseno MD PCP - General 10/01/16 Eren Cr MD Referring Physician Medical Oncology 11/25/18 Yohana Bowen MD Radiation Oncologist Radiation Oncology 11/25/18 Alejo Mi MD [address] [place] [address] Referring Physician Nephrology 03/07/23 documented as of this encounter
--- OUTSIDE RECORDS SUMMARY | 2024-06-26 01:54 | XMS_ITS | Encounter Summary ---
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) Procedures CT chest abdomen pelvis with contrast Eren Cr MD [address] [place] [address] Phone: tel: fax: [address] [address] Referral ID Status Reason Start Date Expiration Date Visits Re quested Visits Authorized [id number] Closed 10/18/2023 11/16/2024 1 1 Reason for Visit * MRI/CAT/PET Scan (Routine) - Closed Specialty Diagnoses / Procedures [facility]erred [facility] Referred To Contact Radiology Diagnoses Neuroendocrine carcinoma (HCC) Malignant neoplasm metastatic to 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) Procedures CT chest abdomen pelvis with contrast Eren Cr MD 49[address] [facility] 7A-C [address] [place] [address] Phone: tel: fax: [address] [place] [address] Referral ID Status Reason Start Date Expiration Date Visits Re quested Visits Authorized [id number] Closed 10/18/2023 11/16/2024 1 1 Encounter Details Date Type Department Care Team (Latest Contact Info) Description 11/13/2023 10:37 AM CDT - 11/13/2023 11:59 PM CDT Hospital Encounter [facility] [address] [place] [address] Eren Cr MD 49[address] [facility] 7A-C [facility] [place] [address] Neuroendocrine carcinoma (HCC); Malignant neoplasm [...] file 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 Gender Identity Not on file Sexual [...] by mouth nightly 0.9 % sodium chloride ([facility] sodium chloride 0.9%) injectionIndicati ons:line care Infuse 10 mL into a venous catheter once a week On saturday 4 0.9 % sodium chloride (sodium chloride 0.9%) 0.9% infusion 05/22/2023 4 ascorbic acid, vitamin C, 500 mg capsuleIndication s:supplement Take 1 tablet by mouth it support engineer before breakfast 07/04/2016 4 clotrimazole-beta methasone (LOTRISONE) cream Apply 1 Application topically daily as needed (rash) 4 coenzyme Q28-opgtrvo E 100-5 mg-unit capsuleIndication s:supplement Take 1 tablet by mouth it support engineer before breakfast 4 diphenoxylate-atr opine (LOMOTIL) 2.5-0.025 [...] dose).?? Avoid Jas's Wort, grapefruit products and [place] oranges while on treatment. placed on hold [...] mL documented in this encounter Care Teams Personal Care Aide Relationship Specialty Start Date End Date Julio César Briseno MD PCP - General 10/01/16 Eren Cr MD Referring Physician Medical Oncology 11/25/18 Yohana Bowen MD Radiation Oncologist Radiation Oncology 11/25/18 Alejo Mi MD [address] [place] [address] Referring Physician Nephrology 03/07/23 documented as of this encounter
--- OUTSIDE RECORDS SUMMARY | 2024-06-26 01:55 | XMS_ITS | Encounter Summary ---
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 [address] [facility] Advanced Medicine 7th [place] [address] Phone: tel: Referral ID Status Reason Start Date Expiration Date Visits Re quested Visits Authorized [id number] Closed 06/21/2021 06/26/2024 1 99 Encounter Details Date Type Department Care Team (Latest Contact Info) Description 07/25/2023 10:00 AM AIR CREW OFFICER Office Visit [facility] Oncology [address] [place] [address] Billie Raymundo NP [address] [place] [address] Neuroendocrine carcinoma (HCC) (Primary Dx); Malignant neoplasm [...] file Legal Sex Female 2:41 PM AIR CREW OFFICER Gender Identity Not on file Sexual Orientation Straight 02/19/2021 9: 29 AM CDT Occupation Industry Job Start Date Job End Date retired Not on file Not on file Not on file documented as of this encounter Last Filed Vital Signs Vital Sign Reading Time Taken Comments Blood Pressure 138/77 07/25/2023 9:49 AM AIR CREW OFFICER Pulse 84 07/25/2023 9:49 AM AIR CREW OFFICER Temperature 36.2 ??C (97.2 ??F) 07/25/2023 9:49 AM CS T Respiratory Rate 16 07/25/2023 9:49 AM AIR CREW OFFICER Oxygen Saturation 95% 07/25/2023 9:49 AM AIR CREW OFFICER Inhaled Oxygen Concentration - - Weight 76.7 kg (169 lb) 07/25/2023 9:49 AM AIR CREW OFFICER Height - - Body Mass Index 29.94 06/11/2023 3:18 PM AIR CREW OFFICER documented in this encounter Progress Notes * Raymundo, Billie, BRAIN PICKER - 07/25/2023 10:00 AM CST Images from [...] she also underwent right colectomy in [facility] [place] by Dr. Greyson Reeves. [...] medications which included a new BP med. [place] nauseous, took zofran, but then threw up after. [place] off since. - No fevers, chills, worsening [...] Exam Vitals reviewed. Exam conducted with a template maker present. Constitutional: General: She is not in [...] 10:04 Tumor Markers Chromogranin A <93 ng/mL 1687 0768 1672 1996 RADIOGRAPHIC/DIAGNOSTIC REVIEW: CT chest abdomen pelvis [...] checked 06/11 16. Pt started on ergocalciferol [address] un weekly. - followed by nephrology 6. [...] Eren Cr MD at 07/26/2023 11:57 AM AIR CREW OFFICER CREW OFFICER CREW OFFICER CREW OFFICER CREW OFFICER documented in this encounter Plan of [...] 024 documented in this encounter Care Teams Cotton Candy Maker Relationship Specialty Start Date End Date Julio César Briseno MD PCP - General 10/01/16 Eren Cr MD Referring Physician Medical Oncology 11/25/18 Yohana Bowen MD Radiation Oncologist Radiation Oncology 11/25/18 Alejo Mi MD [address] [place] [address] Referring Physician Nephrology 03/07/23 documented as of this encounter
--- OUTSIDE RECORDS SUMMARY | 2024-06-26 01:55 | XMS_ITS | Encounter Summary ---
Author Organization [facility] Address [address] [place] [address] Phone Care Team Providers Care Transfer Specialist Name Role Phone Julio César Briseno MD Primary Care Provider [phone] Eren Cr MD Unavailable [phone] Yohana Bowen MD Unavailable [place] Ramos MD Unavailable [phone] Reason for Visit * Episode Based Medications (Routine) - Closed Specialty Diagnoses / Procedures Referred By Contac t Referred To Contact Diagnoses Neuro-endocrine carcinoma (HCC) Procedures study [id number] phase III cabozantinib Eren Cr MD [address] [place] [address] Phone: tel: fax: [facility] at [facility] [address] [facility] 7th [place] [address] Phone: tel: Referral ID Status Reason Start Date Expiration Date Visits Re quested Visits Authorized [id number] Closed 06/21/2021 06/26/2024 1 99 Encounter Details Date Type Department Care Team (Latest Contact Info) Description 08/27/2023 10:30 AM HAND II TUBE BENDER Research [facility] Pick-Up/CTRU Professor Of Fine Art [facility] Oncology [address] [place] [address] Neuro-endocrine carcinoma (HCC) (Primary Dx) Social History [...] file Legal Sex Female 2:41 PM HAND II TUBE BENDER Gender Identity Not on file Sexual Orientation [...] Ordered Date First Ordered Date [id number] cabozantinib (2018-02-122/[id number]) tablet 20 mg 1 08/27/2023 Nursing Count Last Ordered Date First Orde red Date ONCBCN STUDY COMMUNICATION 1 08/27/2023 ONCBCN TREATMENT PARAMETERS 1 08/27/2023 Appointment Requests Count Last Ordered Date Fi rst Ordered Date ONCBCN TAKE HOME STUDY DRUG APPT 1 08/27/19 24 documented in this encounter Care Teams Transfer Specialist Relationship Specialty Start Date End Date Julio César Briseno MD PCP - General 10/01/16 Eren Cr MD Referring Physician Medical Oncology 11/25/18 Yohana Bowen MD Radiation Oncologist Radiation Oncology 11/25/18 Alejo Mi MD [address] [address] Referring Physician Nephrology 03/07/23 documented as of this encounter
--- OUTSIDE RECORDS SUMMARY | 2024-06-26 01:55 | XMS_ITS | Encounter Summary ---
Author Organization [facility] Healthcare Address [address] [place] [address] Care Team Providers Care Claim Processor Name Role Phone Julio César Briseno MD Primary Care Provider [phone] Eren Cr MD Unavailable [phone] Yohana Bowen MD Unavailable Alejo Mi MD Unavailable [phone] Encounter Details Date Type Department Care Team (Latest Contact Info) Description 08/27/2023 8:20 AM [facility] - 08/27/2023 11:59 PM [facility] Hospital Encounter [facility] [address] [place] [address] [id number] Neuroendocrine carcinoma (HCC); Malignant neoplasm metastatic to [...] on file Legal Sex Female 2:41 PM [facility] Gender Identity Not on file Sexual Orientation [...] by mouth nightly 0.9 % sodium chloride ([facility] sodium chloride 0.9%) injectionIndicat ions:line care Infuse 10 mL into a venous catheter once a week On saturday 4 0.9 % sodium chloride (sodium chloride 0.9%) 0.9% infusion 05/22/2023 4 ascorbic acid, vitamin C, 500 mg capsuleIndicatio ns:supplement Take 1 tablet by mouth dock coordinator before breakfast 07/04/2016 4 clotrimazole-bet amethasone (LOTRISONE) cream Apply 1 Application topically daily as needed (rash) 4 coenzyme [id number] E 100-5 mg-unit capsuleIndicatio ns:supplement Take 1 tablet by mouth dock coordinator before breakfast 4 diphenoxylate-at ropine (LOMOTIL) 2.5-0.025 [...] Fluids every -Heparin to flush 4 INV-[facility] cabozantinib/maris cebo (2018-02-122/A02 1602) 20 mg tabletIndication s:cancer study Take 1 tablet (20 mg total) by mouth nightly Take on an empty stomach (no food for 2 hours before and 1 hour after each dose).?? Avoid [place]'s Wort, grapefruit products and [place] oranges while on treatment. 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) DIFFERENTIAL AUTO Routine 08/27/2023 9:3 8 AM [facility] Neuroendocrine carcinoma (HCC) Malignant neoplasm metastatic to liver (HCC) CHROMOGRANIN A Routine 08/27/2023 9:38 AM [facility] Neuroendocrine carcinoma (HCC) Malignant neoplasm metastatic to liver (HCC) CBC WITH AUTO DIFFERENTIAL Routine 08/27/2023 9:38 AM [facility] Neuroendocrine carcinoma (HCC) Malignant neoplasm metastatic to liver (HCC) VITAMIN D 25 HYDROXY Routine 08/27/2023 9:38 AM [facility] Neuroendocrine carcinoma (HCC) Malignant neoplasm metastatic to liver (HCC) MANUAL DIFFERENTIAL Routine 08/27/2023 9 :38 AM [facility] Neuroendocrine carcinoma (HCC) Malignant neoplasm metastatic to liver (HCC) PHOSPHORUS Routine 08/27/2023 9:38 AM [facility] Neuroendocrine carcinoma (HCC) Malignant neoplasm metastatic to liver (HCC) MAGNESIUM STAT 08/27/2023 9:38 AM [facility] Neuro-endocrine carcinoma (HCC) LIPID PANEL Routine 08/27/2023 9:38 AM [facility] Neuroendocrine carcinoma (HCC) Malignant neoplasm metastatic to liver (HCC) COMPREHENSIVE METABOLIC PANEL STAT 08/27/2023 9:38 AM [facility] Neuroendocrine carcinoma (HCC) Malignant neoplasm metastatic to liver (HCC) PROTEIN / CREATININE RATIO, URINE, RANDOM STAT 08/27/2023 9:30 AM [facility] Neuro-endocrine carcinoma (HCC) documented in this encounter Results * (ABNORMAL) Manual Differential (08/27/2023 9:38 AM [facility]) Differential Auto [facility] RBC morphology Normal [facility] Platelet estimate Decreased( A) [facility] Blood 08/27/2023 9:38 AM [facility] 08/27/2023 9:39 AM [facility] us Eren Cr MD LAB BLOOD ORDERABLES Final Re sult [facility] Department [place] [address] * (ABNORMAL) eGFR (08/27/2023 9:38 AM [facility]) eGFR 55(L) >=60 mL/min/1. 73 m2 [facility] Comment: Interpretive Data Reference Interval Normal ?>/= [...] last reviewed 2021. Blood 08/27/2023 9:38 AM [facility] 08/27/2023 9:39 AM [facility] us Eren Cr MD LAB BLOOD ORDERABLES Final Re sult [facility] Department [place] [address] * (ABNORMAL) Differential, auto (08/27/2023 9:38 AM [facility]) Neutrophil abs 1.7 1.5 - 6.5 K/cumm [facility] Comment:Testing performed by : [facility], [address] [place] [id number] Imm gran abs 0.0 0.0 - 0.1 K/cumm [facility] Lymphocyte abs 0.4(L) 0.8 - 3.3 K/cumm [facility] Monocyte abs 0.4 0.2 - 0.8 K/cumm [facility] Eosinophil abs 0.1 0.0 - 0.5 K/cumm [facility] Basophil abs 0.0 0.0 - 0.1 K/cumm [facility] Neutrophil pct 63.0 % [facility] Comment: Consistent with previous result Interpretive Data Percent cell count reference ranges are not reported, since discordance with absolute values may lead to misinterpretation of CBC data. Current Interpretive Data was last revised on 2017. Imm gran pct 0.8 % [facility] Comment: Interpretive Data Percent cell count reference ranges are not reported, since discordance with absolute values may lead to misinterpretation of CBC data. Current Interpretive Data was last revised on 2017. Lymphocyte pct 16.4 % [facility] Comment: Interpretive Data Percent cell count reference ranges are not reported, since discordance with absolute values may lead to misinterpretation of CBC data. Current Interpretive Data was last revised on 2017. Monocyte pct 13.7 % [facility] Comment: Interpretive Data Percent cell count reference ranges are not reported, since discordance with absolute values may lead to misinterpretation of CBC data. Current Interpretive Data was last revised on 2017. Eosinophil pct 5.3 % [facility] Comment: Interpretive Data Percent cell count reference ranges are not reported, since discordance with absolute values may lead to misinterpretation of CBC data. Current Interpretive Data was last revised on 2017. Basophil pct 0.8 % [facility] Comment: Interpretive Data Percent cell count reference ranges are not reported, since discordance with absolute values may lead to misinterpretation of CBC data. Current Interpretive Data was last revised on 2017. Blood 08/27/2023 9:38 AM [facility] 08/27/2023 9:39 AM [facility] Eren Cr MD LAB BLOOD ORDERABLES Final Re sult Performing Organization Address [facility] Co de Phone Number [facility] [place] [address] * (ABNORMAL) Magnesium (08/27/2023 9:38 AM [facility]) Magnesium 1.3(L) 1.4 - 2.5 mg/dL [facility] Comment:Testing performed by : [facility], [address] [place] [address] Blood 08/27/2023 9:38 AM [facility] 08/27/2023 9:39 AM [facility] Eren Cr MD LAB BLOOD ORDERABLES Final Re sult Performing Organization Address [facility] Co de Phone Number [facility] [place] [address] * Lipid panel (08/27/2023 9:38 AM [facility]) Cholesterol 137 30 - 199 mg/dL [facility] Comment: Interpretive Data Ages < or [...] revised on 2018. Triglycerides 127 <=149 mg/dL [facility] Comment: Interpretive Data Ages < or = [...] on 2018. HDL 59 >=40 mg/dL [facility] Comment: Interpretive Data Ages < or [...] on 2018. Non-HDL Cholesterol 78 mg/dL [facility] Comment: Interpretive Data Ages < or [...] on 2018. Chol/HDL ratio [address] [facility] Blood 08/27/2023 9:38 AM [facility] 08/27/2023 10:40 AM [facility] us Eren Cr MD LAB BLOOD ORDERABLES Final Re sult [facility] Department [place] [address] * (ABNORMAL) Phosphorus (08/27/2023 9:38 AM [facility]) [facility] Phosphorus, pl 1.5(L) 2.3 - 4.5 mg/dL [facility] Comment:Testing performed by : [facility], [address] [place] [address] Blood 08/27/2023 9:38 AM [facility] 08/27/2023 9:39 AM [facility] Eren Cr MD LAB BLOOD ORDERABLES Final Re sult Performing Organization Address City/[facility]/ZIP Co de Phone Number [facility] Department [place] [address] * (ABNORMAL) Vitamin D 25 hydroxy (08/27/2023 9:38 AM [facility]) [facility] Vitamin D 25-OH 20(L) 30 - 80 ng/mL [facility] Blood 08/27/2023 9:38 AM [facility] 08/27/2023 10:40 AM [facility] Eren Cr MD LAB BLOOD ORDERABLES Final Re sult Performing Organization Address City/[facility]/ZIP Co de Phone Number [facility] Department [place] [address] * (ABNORMAL) CBC with auto differential (08/27/2023 9:38 AM [facility]) [facility] WBC 2.6(L) 3.8 - 9.9 K/cumm [facility] Comment:Testing performed by : [facility], [address] [place] [address] Hgb 10.7(L) 11.9 - 15.5 g/dL [facility] Comment:Testing performed by : [facility], [address] [place] [address] Hct 33.4(L) 35.6 - 45.5 % [facility] Comment:Testing performed by : [facility], [address] [place] [address] Plt 76(L) 150 - 400 K/cumm [facility] Comment:Testing performed by : [facility], [address] [place] [address] 19455 MPV 10.1 9.1 - 12.3 fL [facility] RBC 3.37(L) 3.90 - 5.20 M/cumm [facility] MCV 99.1(H) 81.3 - 96.4 fL [facility] MCH 31.8 27.1 - 33.3 pg [facility] MCHC 32.0(L) 32.3 - 35.7 g/dL [facility] RDW CV 15.1(H) 11.1 - 14.9 % [facility] RDW SD 54.3(H) 35.7 - 48.1 fL [facility] NRBC abs 0.00 0.00 - 0.01 K/cumm [facility] Blood 08/27/2023 9:38 AM [facility] 08/27/2023 9:39 AM [facility] us Eren Cr MD LAB BLOOD ORDERABLES Edited R esult - Final [facility] Department [place] [address] * (ABNORMAL) Comprehensive metabolic panel (08/27/2023 9:38 AM [facility]) [facility] Sodium 140 135 - 145 mmol/L [facility] Comment:Testing performed by : [facility], [address] [place] [address] Potassium, pl 3.7 3.3 - 4.9 mmol/L [facility] Chloride 108 97 - 110 mmol/L [facility] CO2 26 22 - 32 mmol/L [facility] Anion gap 6 2 - 15 mmol/L [facility] BUN 10 6 - 25 mg/dL [facility] Creatinine 1.07 0.60 - 1.10 mg/dL [facility] Glucose 123 70 - 199 mg/dL [facility] [...] 2022. Calcium 9.2 8.5 - 10.3 mg/dL [facility] Bilirubin, total 0.5 0.1 - 1.2 mg/dL [facility] Protein, pl 6.1(L) 6.5 - 8.5 g/dL [facility] Albumin 3.9 3.5 - 5.0 g/dL [facility] Alk phos 63 40 - 130 Units/L [facility] ALT 22 7 - 45 Units/L [facility] AST 31 10 - 45 Units/L [facility] Blood 08/27/2023 9:38 AM [facility] 08/27/2023 9:39 AM [facility] us Eren Cr MD LAB BLOOD ORDERABLES Final Re sult [facility] Department [place] [address] * (ABNORMAL) Chromogranin A (08/27/2023 9:38 AM [facility]) Pathologist [facility] Chromogranin A 2074(H) <93 ng/mL [facility] Comment: Impaired renal or hepatic function or treatment with proton pump inhibitors may result in artifactual elevations of Chromogranin A. ADDITIONAL INFORMATION This test was developed and its performance characteristics determined by [facility] in a manner consistent with [...] a homogeneous time-resolved immunofluorescent assay manufactured by [employer] and performed on the [employer] Kryptor Compact Plus. ? Values obtained with different assay methods or kits may be different and cannot be used interchangeably. ? Test results cannot be interpreted as absolute evidence for the presence or absence of malignant disease. Test Performed by: [facility] [address] [place] [address] Salon Supervisor: Immanuel Novak M.D. Ph.D.; CLIA# [id number] Blood 08/27/2023 9:38 AM [facility] 08/27/2023 11:12 AM [facility] Eren Cr MD LAB BLOOD ORDERABLES Final Re sult Performing Organization Address [facility] de Phone Number [facility] Department [place] [address] * Protein / creatinine ratio, urine, random (08/27/2023 9:30 AM [facility]) Protein, ur, quant 27.5 mg/dL [facility] Comment: Interpretive Data No reference range established. Current interpretive data was last revised 2018. Creatinine Ur 218.2 mg/dL [facility] Comment: Interpretive Data No reference range established. Current interpretive data was last revised 2018. Protein/creatinin e ratio 126.0 0.0 - 180.0 mg/g CR [facility] Urine 08/27/2023 9:30 AM [facility] 08/27/2023 10:46 AM [facility] Eren Cr MD LAB URINE ORDERABLES Final Re sult Performing Organization Address [facility] Co de Phone Number [facility] Department [place] [address] documented in this encounter Visit Diagnoses Diagnosis Neuroendocrine carcinoma (HCC) Other malignant neoplasm of unspecified site 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
--- OUTSIDE RECORDS SUMMARY | 2024-06-26 01:55 | XMS_ITS | Encounter Summary ---
Author Organization [facility] Healthcare Address [address] [place] [address] Care Team Providers Care Heating And Cooling Technician Name Role Phone Julio César Briseno MD Primary Care Provider [phone] Eren Cr MD Unavailable [phone] Yohana Bowen MD Unavailable Alejo Mi MD Unavailable [phone] Reason for Visit * Reason Comments OP Infusion Hydration Encounter Details Date Type Department Care Team (Latest Contact Info) Description 09/11/2023 9:00 AM BANJO REPAIR PERSON - 09/11/2023 11:59 PM BANJO REPAIR PERSON Hospital Encounter [facility] ([facility]) [address] [place] [id number] Dehydration (Primary Dx); Neuroendocrine carcinoma (HCC); Malignant [...] on file Legal Sex Female 2:41 PM BANJO REPAIR PERSON Gender Identity Not on file Sexual Orientation Straight 02/19/2021 9: 29 AM CDT Occupation Industry Job Start Date Job End Date retired Not on file Not on file Not on file documented as of this encounter Last Filed Vital Signs Vital Sign Reading Time Taken Comments Blood Pressure 157/65 09/11/2023 9:23 AM BANJO REPAIR PERSON Pulse 71 09/11/2023 9:21 AM BANJO REPAIR PERSON Temperature 36.4 ??C (97.5 ??F) 09/11/2023 9:21 AM CS T Respiratory Rate 18 09/11/2023 9:21 AM BANJO REPAIR PERSON Oxygen Saturation 99% 09/11/2023 9:21 AM BANJO REPAIR PERSON Inhaled Oxygen Concentration - - Weight - [...] by mouth nightly 0.9 % sodium chloride ([facility] sodium chloride 0.9%) injectionIndicati ons:line care Infuse 10 mL into a venous catheter once a week On saturday 4 0.9 % sodium chloride (sodium chloride 0.9%) 0.9% infusion 05/22/2023 4 ascorbic acid, vitamin C, 500 mg capsuleIndication s:supplement Take 1 tablet by mouth front end specialist before breakfast 07/04/2016 4 clotrimazole-beta methasone (LOTRISONE) cream Apply 1 Application topically daily as needed (rash) 4 coenzyme [id number] E 100-5 mg-unit capsuleIndication s:supplement Take 1 tablet by mouth front end specialist before breakfast 4 diphenoxylate-atr opine (LOMOTIL) [...] -Heparin to flush 4 INV-[facility] cabozantinib/plac abdulkadir (2018-02-122/A021 602) 20 mg tabletIndications :cancer study Take 1 tablet (20 mg total) by mouth nightly Take on an empty stomach (no food for 2 hours before and 1 hour after each dose).?? Avoid Jas's Wort, grapefruit products and [place] oranges while on treatment. placed on hold [...] 1 tablet (88 mcg total) by mouth front end specialist before breakfast 90 tablet 1 10/12/2022 4 [...] 09/11/2023 9:00 AM CST Patient presents to [facility] for Hydration. Vital signs stable. Patient verbalized understanding of today's treatment plan. Reviewed and educated patient on fall prevention. 1L NS administered as ordered.Patient reports nausea during infusion, Zofran administered as ordered. Port flushed with NS and Heparin per protocol. Patient discharged home in stable condition. O REPAIR PERSON documented in this encounter Plan of [...] 1 doseIndications:Hypophospha temia Given 09/11/2023 10:36 AM BANJO REPAIR PERSON 8 mg sodium chloride 0.9% bolus 1,000 mL 1,000 mL, intravenous, at 500 mL/hr, Administer over 2 Hours, Once, On Sat09/11/23 at 0950, For 1 doseIndications:Neuroendocr ine carcinoma (HCC),Dehydration New Bag 09/11/2023 9:29 AM BANJO REPAIR PERSON 1,000 mL 666 mL/hr documented in this encounter Orders Medications Ordered That Brett ht Not Have Been Administered Count Last Ordered Date First Ordered Date heparin 100 unit/mL injection 500 Units 1 0 09/11/2023 Appointment Requests Count Last Ordered Date Fi rst Ordered Date ONCBCN INFUSION APPT REQUEST 1 09/11/2023 documented in this encounter Care Teams Heating And Cooling Technician Relationship Specialty Start Date End Date Julio César Briseno MD PCP - General 10/01/16 Eren Cr MD Referring Physician Medical Oncology 11/25/18 Yohana Bowen MD Radiation Oncologist Radiation Oncology 11/25/18 Alejo Mi MD [address] [address] Referring Physician Nephrology 03/07/23 documented as of this encounter
--- OUTSIDE RECORDS SUMMARY | 2024-06-26 01:55 | XMS_ITS | Encounter Summary ---
Author Organization [facility] Address [address] [place] [address] Phone Care Team Providers Care Gun Fertilizer Name Role Phone Julio César Briseno MD Primary Care Provider Eren Cr MD Unavailable [phone] Yohana Bowen MD Unavailable Alejo Mi MD Unavailable [phone] Encounter Details Date Type Department Care Team (Late st Contact Info) Description 08/27/2023 Orders Only [facility] Oncology [address] [place] [address] Eren Cr MD [address] [place] [address] Neuroendocrine carcinoma (HCC) (Primary Dx); Hypomagnesemia Social [...] file Legal Sex Female 2:41 PM DATA CAPTURE CLERK Gender Identity Not on file Sexual [...] 08/27/2023 documented in this encounter Care Teams Gun Fertilizer Relationship Specialty Start Date End Date Julio César Briseno MD PCP - General 10/01/16 Eren Cr MD Referring Physician Medical Oncology 11/25/18 Yohana Bowen MD Radiation Oncologist Radiation Oncology 11/25/18 [place]ollsAlejo Waggoner MD [address] [place] [address] Referring Physician Nephrology 03/07/23 documented as of this encounter
--- OUTSIDE RECORDS SUMMARY | 2024-06-26 01:55 | XMS_ITS | Encounter Summary ---
Author Organization [facility] Address [address] [place] [address] Phone Care Team Providers Care Geriatric Nurse Assistant Name Role Phone Julio César Briseno MD Primary Care Provider Eren Cr MD Unavailable [phone] Yohana Bowen MD Unavailable Alejo Mi MD Unavailable [phone] Encounter Details Date Type Department Care Team (Late st Contact Info) Description 08/28/2023 Orders Only [facility] Oncology [address] [place] [address] Eren Cr MD [address] [place] [address] Hypophosphatemia Social History Tobacco Use Types Packs/Day [...] on file Legal Sex Female 2:41 PM EXPERIMENTAL [employer] Gender Identity Not on file Sexual Orientation Straight 02/19/2021 9: 29 AM CDT Occupation Industry Job Start Date Job End Date retired Not on file Not on file Not on file documented as of this encounter Ordered Prescriptions Prescription Sig Dispense Quantity Refills Last Filled Start Date End Date sodium phosphate - potassium phosphate (S-Ilne-XnolucT) 250 mg tabletIndications: Hypophosphatemia Take 1 tablet [...] Da te sodium phosphate - potassium phosphate (M-Zvjj-UlurueQ) 250 mg tabletIndications:Hypoph osphatemia Take 1 tablet (250 mg total) by mouth 2 (two) times a day for 3 days Reorder 08/27/2023 08/28/2023 documented as of this encounter Care Teams Geriatric Nurse Assistant Relationship Specialty Start Date End Date Julio César Briseno MD PCP - General 10/01/16 Eren Cr MD Referring Physician Medical Oncology 11/25/18 Yohana Bowen MD Radiation Oncologist Radiation Oncology 11/25/18 Alejo Mi MD [address] [place] [address] Referring Physician Nephrology 03/07/23 documented as of this encounter
--- OUTSIDE RECORDS SUMMARY | 2024-06-26 01:55 | XMS_ITS | Encounter Summary ---
Author Organization [facility] Healthcare Address [address] [place] [address] Care Team Providers Care Ice Guard Inspector Name Role Phone Julio César Briseno MD Primary Care Provider [phone] Eren Cr MD Unavailable [phone] Yohana Bowen MD Unavailable Alejo Mi MD Unavailable [phone] Encounter Details Date Type Department Care Team (Latest Contact Info) Description 08/22/2023 11:25 AM AGRICULTURE SCIENTIST - 08/22/2023 11:59 PM AGRICULTURE SCIENTIST Hospital Encounter [facility] [address] [place] [address] [id number] Neuroendocrine carcinoma (HCC); Malignant neoplasm metastatic to [...] on file Legal Sex Female 2:41 PM AGRICULTURE SCIENTIST Gender Identity Not on file Sexual [...] mouth nightly 0.9 % sodium chloride ([facility] sodium chloride 0.9%) injectionIndicat ions:line care Infuse 10 mL into a venous catheter once a week On saturday 4 0.9 % sodium chloride (sodium chloride 0.9%) 0.9% infusion 05/22/2023 4 ascorbic acid, vitamin C, 500 mg capsuleIndicatio ns:supplement Take 1 tablet by mouth transportation attendant before breakfast 07/04/2016 4 clotrimazole-bet amethasone (LOTRISONE) cream Apply 1 Application topically daily as needed (rash) 4 coenzyme G69-[id number] E 100-5 mg-unit capsuleIndicatio ns:supplement Take 1 tablet by mouth transportation attendant before breakfast 4 diphenoxylate-at ropine (LOMOTIL) [...] Fluids every -Heparin to flush 4 [facility] cabozantinib/maris cebo (2018-02-122/A02 1602) 20 mg tabletIndication s:cancer study Take 1 tablet (20 mg total) by mouth nightly Take on an empty stomach (no food for 2 hours before and 1 hour after each dose).?? Avoid Jas's Wort, grapefruit products and [place] oranges while on treatment. placed on hold 09/26/22 for covid 01/29/2022 4 levothyroxine (SYNTHROID) 88 mcg tabletIndication s:Hypothyroidism due to medication Take 1 tablet (88 mcg total) by mouth transportation attendant before breakfast 90 tablet 1 10/12/2022 [...] site documented in this encounter Care Teams Ice Guard Inspector Relationship Specialty Start Date End Date Julio César Briseno MD PCP - General 10/01/16 Eren Cr MD Referring Physician Medical Oncology 11/25/18 Yohana Bowen MD Radiation Oncologist Radiation Oncology 11/25/18 Alejo Mi MD [address] [facility] [address] [place] [address] Referring Physician Nephrology 03/07/23 documented as of this encounter
--- OUTSIDE RECORDS SUMMARY | 2024-06-26 01:55 | XMS_ITS | Encounter Summary ---
Author Organization [facility] Address [address] [place] [address] Phone Care Team Providers Care Welder Apprentice Name Role Phone Julio César Briseno MD Primary Care Provider [phone] Eren Cr MD Unavailable Yohana Bowen MD Unavailable Alejo Mi MD Unavailable [phone] Encounter Details Date Type Department Care Team (Latest Contact Info) Description 09/04/2023 10:00 AM MANAGER LANDSCAPE Clinical Support [facility] Oncology [address] [facility] Advanced Medicine 7th [place] [address] [place] [address] Hypophosphatemia (Primary Dx); Neuroendocrine carcinoma [...] file Legal Sex Female 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 LANDSCAPE Gender Identity Not on file Sexual Orientation [...] Colorectal CancerIndications:Colorectal Cancer Given 09/04/2023 10:22 AM MANAGER LANDSCAPE 1 mg documented in this encounter Orders Medications Ordered That Brett ht Not Have Been Administered Count Last Ordered Date First Ordered Date alteplase (CATHFLO ACTIVASE) injection 1 mg 1 09/04/2023 Appointment Requests Count Last Ordered Date Fi rst Ordered Date ONCBCN LAB APPOINTMENT 1 09/04/2023 documented in this encounter Care Teams Welder Apprentice Relationship Specialty Start Date End Date Julio César Briseno MD PCP - General 10/01/16 Eren Cr MD Referring Physician Medical Oncology 11/25/18 Yohana Bowen MD Radiation Oncologist Radiation Oncology 11/25/18 Alejo Mi MD [address] [address] Referring Physician Nephrology 03/07/23 documented as of this encounter
--- OUTSIDE RECORDS SUMMARY | 2024-06-26 01:55 | XMS_ITS | Encounter Summary ---
Author Organization [facility] Address [address] [place] [address] Phone Care Team Providers Care Item Processing Clerk Name Role Phone Julio César Briseno MD Primary Care Provider [phone] Eren Cr MD Unavailable [phone] Yohana Bowen MD Unavailable [place]Alejo Ramos MD Unavailable Reason for Visit * Episode Based Medications (Routine) - Closed Specialty Diagnoses / Procedures Referred By Contac t Referred To Contact Diagnoses Neuro-endocrine carcinoma (HCC) Procedures study [id number] phase III cabozantinib Eren Cr MD [address] [facility] [address] [place] [address] Phone: tel: fax: [facility] [address] [facility] Advanced Medicine 7th [place] [address] Phone: tel: Referral ID Status Reason Start Date Expiration Date Visits Re quested Visits Authorized [id number] Closed 06/21/2021 06/26/2024 1 99 Encounter Details Date Type Department Care Team (Late st Contact Info) Description 08/27/2023 10:00 AM DRAPERY INSPECTOR Office Visit [facility] [address] [place] [address] Eren Cr MD [address] [facility] [address] [place] [address] Neuroendocrine carcinoma (HCC) (Primary Dx); Malignant neoplasm [...] on file Legal Sex Female 2:41 PM DRAPERY INSPECTOR Gender Identity Not on file Sexual Orientation Straight 02/19/2021 9: 29 AM CDT Occupation Industry Job Start Date Job End Date retired Not on file Not on file Not on file documented as of this encounter Last Filed Vital Signs Vital Sign Reading Time Taken Comments Blood Pressure 143/78 08/27/2023 10:01 AM DRAPERY INSPECTOR Pulse 77 08/27/2023 10:01 AM DRAPERY INSPECTOR Temperature 36.8 ??C (98.2 ??F) 08/27/2023 10:[address] Respiratory Rate 16 08/27/2023 10:01 AM DRAPERY INSPECTOR Oxygen Saturation 99% 08/27/2023 10:01 AM DRAPERY INSPECTOR Inhaled Oxygen Concentration - - Weight 78 kg (172 lb) 08/27/2023 10:01 AM DRAPERY INSPECTOR Height - - Body Mass Index 30.47 06/11/2023 3:18 PM DRAPERY INSPECTOR documented in this encounter Ordered Prescriptions Prescription Sig Dispense Quantity Refills Last Filled Start Date End Date sodium phosphate - potassium phosphate (R-Qvzl-SqgqttQ) 250 mg tabletIndications: Hypophosphatemia Take 1 tablet [...] time, she also underwent right colectomy in [facility] [place] by Dr. Greyson Reeves. [...] Exam Vitals reviewed. Exam conducted with a customer relations specialist present. Constitutional: General: She is not in [...] checked 06/11 16. Pt started on ergocalciferol 43848 un weekly. - followed by nephrology 6. [...] Eren Cr MD at 08/28/2023 11:00 AM DRAPERY INSPECTOR ERY INSPECTOR ERY INSPECTOR documented in this encounter Plan of Treatment Not on file documented as of this encounter Results * (ABNORMAL) TSH (09/26/2023 1:03 PM CDT) Thyroid Stimulating Hormone 5.57(H) 0.30 - 4.20 mcIUnit/mL Blood 09/26/2023 1:03 PM CDT 09/26/2023 3:38 PM CDT us Eren Cr MD LAB BLOOD ORDERABLES Final Re sult Performing Organization Address [facility]/ZIP Co de Phone Number [facility] Department of Laboratories [place], [place] [id number] * Magnesium (09/26/2023 1:03 PM CDT) Magnesium 1.7 1.4 - 2.5 mg/dL Comment:Testing performed by : [facility], [address] [place] [address] Blood 09/26/2023 1:03 PM CDT 09/26/2023 1:03 PM CDT Eren Cr MD LAB BLOOD ORDERABLES Final Re sult [facility] [place] [address] * (ABNORMAL) Chromogranin A (09/26/2023 1:03 PM CDT) Chromogranin A 2170(H) <93 ng/mL [place] ref Lab Comment: Impaired renal or hepatic function or treatment with proton pump inhibitors may result in artifactual elevations of Chromogranin A. ADDITIONAL INFORMATION This test was developed and its performance characteristics determined by [facility] in a manner consistent with CLIA [...] a homogeneous time-resolved immunofluorescent assay manufactured by [employer] and performed on the [employer] Kryptor Compact Plus. ? Values obtained with different assay methods or kits may be different and cannot be used interchangeably. ? Test results cannot be interpreted as absolute evidence for the presence or absence of malignant disease. Test Performed by: [place] [address] Batch Plant Operator: Immanuel Novak M.D. Ph.D.; CLIA# [id number] Blood 09/26/2023 1:03 PM CDT 09/26/2023 4:24 PM CDT us Eren Cr MD LAB BLOOD ORDERABLES Final Re sult [facility] Department [place] [address] [place] ref Lab * (ABNORMAL) Comprehensive metabolic panel (09/26/2023 1:03 PM CDT) Pathologist [facility] Sodium 138 135 - 145 mmol/L Comment:Testing performed by : [place] [address] [facility] [address] Potassium, pl 4.3 3.3 - 4.9 mmol/L [facility] Chloride 105 97 - 110 mmol/L [facility] CO2 27 22 - 32 mmol/L [facility] Anion gap 6 2 - 15 mmol/L [facility] BUN 11 6 - 25 mg/dL [facility] Creatinine 1.24(H) 0.60 - 1.10 mg/dL [facility] Glucose 95 70 - 199 mg/dL [facility] [...] Calcium 9.8 8.5 - 10.3 mg/dL [facility] Bilirubin, total 0.7 0.1 - 1.2 mg/dL [facility] Protein, pl 6.4(L) 6.5 - 8.5 g/dL [facility] Albumin 4.1 3.5 - 5.0 g/dL [facility] Alk phos 69 40 - 130 Units/L [facility] ALT 20 7 - 45 Units/L [facility] AST 39 10 - 45 Units/L [facility] Blood 09/26/2023 1:03 PM CDT 09/26/2023 1:03 PM CDT us Eren Cr MD LAB BLOOD ORDERABLES Final Re sult [facility] [place] [address] * (ABNORMAL) CBC with auto differential (09/26/2023 1:03 PM CDT) WBC 3.6(L) 3.8 - 9.9 K/cumm Comment:Testing performed by : [facility], [address] [place] [address] Hgb 11.8(L) 11.9 - 15.5 g/dL [facility] Comment:Testing performed by : [facility], [address] [place] [address] Hct 35.8 35.6 - 45.5 % [facility] Comment:Testing performed by : [facility], [address] [place] [address] Plt 90(L) 150 - 400 K/cumm [facility] Comment:Testing performed by : [address] [address] MPV 11.1 9.1 - 12.3 fL [facility] RBC 3.71(L) 3.90 - 5.20 M/cumm [facility] MCV 96.5(H) 81.3 - 96.4 fL [facility] MCH 31.8 27.1 - 33.3 pg [facility] MCHC 33.0 32.3 - 35.7 g/dL [facility] RDW CV 14.9 11.1 - 14.9 % [facility] RDW SD 52.3(H) 35.7 - 48.1 fL [facility] NRBC abs 0.00 0.00 - 0.01 K/cumm [facility] Blood 09/26/2023 1:03 PM CDT 09/26/2023 1:03 PM CDT us Eren Cr MD LAB BLOOD ORDERABLES Final Re sult [facility] Department of Laboratories [place], [place] [id number] * (ABNORMAL) Vitamin D 25 hydroxy (09/26/2023 1:03 PM CDT) [facility] Vitamin D 25-OH 22(L) 30 - 80 ng/mL Blood 09/26/2023 1:03 PM CDT 09/26/2023 3:38 PM CDT Eren Cr MD LAB BLOOD ORDERABLES Final Re sult Performing Organization Address [facility] Co de Phone Number [facility] [place] [address] * Phosphorus (09/26/2023 1:03 PM CDT) Phosphorus, pl 2.8 2.3 - 4.5 mg/dL Comment:Testing performed by : [facility], [address] [place] [address] Blood 09/26/2023 1:03 PM CDT 09/26/2023 1:03 PM CDT Eren Cr MD LAB BLOOD ORDERABLES Final Re sult Performing Organization Address [facility] de Phone Number [facility] [place] [address] * (ABNORMAL) Lipid panel (09/26/2023 1:03 PM CDT) Pathologist [facility] Cholesterol 136 30 - 199 mg/dL Comment: [...] revised on 2018. Triglycerides 173(H) <=149 mg/dL [facility] Comment: Interpretive [...] on 2018. HDL 56 >=40 mg/dL [facility] Comment: Interpretive Data [...] 2018. LDL, calculated 45 <=129 mg/dL [facility] Comment: Interpretive Data [...] [facility] Department [place] [address] * (ABNORMAL) Basic metabolic panel (09/04/2023 10:29 AM DRAPERY INSPECTOR) Sodium 141 135 - 145 mmol/L [facility] Comment:Testing performed by : [facility], [address] [facility] [phone] Potassium, pl 4.1 3.3 - 4.9 mmol/L [facility] Comment:Testing performed by : [facility], [address] [place] [phone] Chloride 108 97 - 110 mmol/L [facility] Comment:Testing performed by : [facility], [address] [place] [phone] CO2 26 22 - 32 mmol/L [facility] Comment:Testing performed by : [facility], [address] [place] [phone] Anion gap 7 2 - 15 mmol/L [facility] Comment:Testing performed by : [facility], [address] [place] [phone] BUN 14 6 - 25 mg/dL [facility] Comment:Testing performed by : [facility], [address] [place] [phone] Creatinine 1.03 0.60 - 1.10 mg/dL [facility] Comment:Testing performed by : [facility], [address] [place] [phone] Glucose 78 70 - 199 mg/dL [facility] [...] was last revised 2022. Testing performed by: [facility], [address] [place] [phone] Calcium 10.5(H) 8.5 - 10.3 mg/dL [facility] Comment:Testing performed by : [facility], [address] [place] [phone] Blood 09/04/2023 10:2 9 AM DRAPERY INSPECTOR 09/04/2023 10:31 AM DRAPERY INSPECTOR us Eren Cr MD LAB BLOOD ORDERABLES Final Re sult [facility] [place] [address] * Phosphorus (09/04/2023 10:29 AM DRAPERY INSPECTOR) Phosphorus, pl 4.2 2.3 - 4.5 mg/dL [facility] Comment:Testing performed by : [facility], [address] [place] [phone] Blood 09/04/2023 10:2 9 AM DRAPERY INSPECTOR 09/04/2023 10:31 AM DRAPERY INSPECTOR Eren Cr MD LAB BLOOD ORDERAB[place] [address] * Magnesium (09/04/2023 10:29 AM DRAPERY INSPECTOR) Pathologist [facility] Magnesium 1.6 1.4 - 2.5 mg/dL [facility] Comment:Testing performed by : [facility], [address] [place] [phone] Blood 09/04/2023 10:2 9 AM DRAPERY INSPECTOR 09/04/2023 10:31 AM DRAPERY INSPECTOR us Eren Cr MD LAB BLOOD ORDERABLES Final Re [facility]ult [place] [address] documented in this encounter Visit Diagnoses Diagnosis [...] 24 documented in this encounter Care Teams Item Processing Clerk Relationship Specialty Start Date End Date Julio César Briseno MD PCP - General 10/01/16 Eren Cr MD Referring Physician Medical Oncology 11/25/18 Yohana Bowen MD Radiation Oncologist Radiation Oncology 11/25/18 Alejo Mi MD [address] [address] Referring Physician Nephrology 03/07/23 documented as of this encounter
--- OUTSIDE RECORDS SUMMARY | 2024-06-26 01:55 | XMS_ITS | Encounter Summary ---
Author Organization [facility] Address [address] [place] [address] Phone Care Team Providers Care Quality Assurance Tester Name Role Phone Julio César Briseno MD Primary Care Provider Eren Cr MD Unavailable [phone] Yohana Bowen MD Unavailable Alejo Mi MD Unavailable [phone] Encounter Details Date Type Department Care Team (Late st Contact Info) Description 08/27/2023 Orders Only [facility] Oncology [address] [place] [address] Eren Cr MD [address] [place] [address] Social History Tobacco Use Types Packs/Day Years [...] on file Legal Sex Female 2:41 PM ETIOLOGY TEACHER Gender Identity Not on file Sexual Orientation Straight 02/19/2021 9: 29 AM CDT Occupation Industry Job Start Date Job End Date retired Not on file Not on file Not on file documented as of this encounter Plan of Treatment Not on file documented as of this encounter Visit Diagnoses Not on filedocumented in this encounter Care Teams Quality Assurance Tester Relationship Specialty Start Date End Date Julio César Briseno MD PCP - General 10/01/16 Eren Cr MD Referring Physician Medical Oncology 11/25/18 Yohana Bowen MD Radiation Oncologist Radiation Oncology 11/25/18 Alejo Mi MD [address] [place] [address] Referring Physician Nephrology 03/07/23 documented as of this encounter
--- OUTSIDE RECORDS SUMMARY | 2024-06-26 01:55 | XMS_ITS | Encounter Summary ---
Author Organization [facility] Address [address] [place] [address] Phone Care Team Providers Care Smoking Pipe Repairer Name Role Phone Julio César Briseno MD Primary Care Provider [phone] Eren Cr MD Unavailable [phone] Yohana Bowen MD Unavailable [place] Ramos MD Unavailable [phone] Reason for Visit * Reason Comments Injections * Episode Based Medications (Routine) - Authorized Specialty Diagnoses / Procedures Referred By Contac t Referred To Contact Oncology Diagnoses 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) Procedures [place] OCTREOTIDE INJECTION, DEPOT Octreotide 28 Day Cycles - Carcinoid Eren Cr MD [address] [facility] [address] [place] [address] Phone: tel: fax: [address] [address] Phone: tel: fax: Referral ID Status Reason Start Date Expiration Date V isits Requested Visits Authorized [id number] Authorized 11/28/2017 02/05/2025 1 150 Encounter Details Date Type Department Care Team (Late st Contact Info) Description 08/27/2023 11:15 AM ANTHROPOMETRIST Infusion [facility] Oncology [address] [place] [address] Neuroendocrine carcinoma (HCC); Malignant neoplasm metastatic to [...] on file Legal Sex Female 2:41 PM ANTHROPOMETRIST Gender Identity Not on file Sexual Orientation [...] 08/09 documented in this encounter Care Teams Smoking Pipe Repairer Relationship Specialty Start Date End Date Julio César Briseno MD PCP - General 10/01/16 Eren Cr MD Referring Physician Medical Oncology 11/25/18 Yohana Bowen MD Radiation Oncologist Radiation Oncology 11/25/18 Alejo Mi MD [address] [address] Referring Physician Nephrology 03/07/23 documented as of this encounter
--- OUTSIDE RECORDS SUMMARY | 2024-06-26 01:55 | XMS_ITS | Encounter Summary ---
Author Organization [facility] [employer] [facility] Address [address] [place] [address] Phone Care Team Providers Care Technical Account Representative Name Role Phone Julio César Briseno MD Primary Care Provider [phone] Eren Cr MD Unavailable [phone] Yohana Bowen MD Unavailable Alejo Mi MD Unavailable [phone] Encounter Details Date Type Department Care Team (Late st Contact Info) Description 09/11/2023 8:15 AM MACHINE I CUTTER Clinical Support [facility] Oncology [facility] Advanced [facility] 7th [place] [address] [place] [address] Social History Tobacco Use Types [...] file Legal Sex Female 2:41 PM MACHINE I CUTTER Gender Identity Not on file Sexual Orientation Straight 02/19/2021 9: 29 AM CDT Occupation Industry Job Start Date Job End Date retired Not on file Not on file Not on file documented as of this encounter Plan of Treatment Not on file documented as of this encounter Visit Diagnoses Not on filedocumented in this encounter Care Teams Technical Account Representative Relationship Specialty Start Date End Date Julio César Briseno MD PCP - General 10/01/16 Eren Cr MD Referring Physician Medical Oncology 11/25/18 Yohana Bowen MD Radiation Oncologist Radiation Oncology 11/25/18 Alejo Mi MD [address] [address] Referring Physician Nephrology 03/07/23 documented as of this encounter
--- OUTSIDE RECORDS SUMMARY | 2024-06-26 01:55 | XMS_ITS | Encounter Summary ---
Author Organization [facility] Address [address] [place] [address] Phone Care Team Providers Care Signals Officer Name Role Phone Julio César Briseno MD Primary Care Provider Eren Cr MD Unavailable [phone] Yohana Bowen MD Unavailable Alejo Mi MD Unavailable [phone] Encounter Details Date Type Department Care Team (Late st Contact Info) Description 09/04/2023 Orders Only [facility] Oncology [address] [place] [address] Eren Cr MD [address] [place] [address] Social History Tobacco Use Types Packs/Day Years [...] on file Legal Sex Female 2:41 PM CLOUD SYSTEMS ARCHITECT Gender Identity Not on file Sexual Orientation Straight 02/19/2021 9: 29 AM CDT Occupation Industry Job Start Date Job End Date retired Not on file Not on file Not on file documented as of this encounter Plan of Treatment Not on file documented as of this encounter Visit Diagnoses Not on filedocumented in this encounter Care Teams Signals Officer Relationship Specialty Start Date End Date Julio César Briseno MD PCP - General 10/01/16 Eren Cr MD Referring Physician Medical Oncology 11/25/18 Yohana Bowen MD Radiation Oncologist Radiation Oncology 11/25/18 Alejo Mi MD [address] [place] [address] Referring Physician Nephrology 03/07/23 documented as of this encounter
--- OUTSIDE RECORDS SUMMARY | 2024-06-26 01:55 | XMS_ITS | Encounter Summary ---
Author Organization [facility] Address [address] [place] [address] Phone Care Team Providers Care Management Instructor Name Role Phone Julio César Briseno MD Primary Care Provider [phone] Eren Cr MD Unavailable [phone] Yohana Bowen MD Unavailable Alejo Mi MD Unavailable [phone] Encounter Details Date Type Department Care Team (Late st Contact Info) Description 08/14/2023 3:00 PM ROUGH ROUNDER Infusion [facility] Oncology [address] [facility] Advanced Medicine 7th [place] [address] Dehydration (Primary Dx); Neuroendocrine carcinoma [...] on file Legal Sex Female 2:41 PM ROUGH ROUNDER Gender Identity Not on file Sexual Orientation Straight 02/19/2021 9: 29 AM CDT Occupation Industry Job Start Date Job End Date retired Not on file Not on file Not on file documented as of this encounter Last Filed Vital Signs Vital Sign Reading Time Taken Comments Blood Pressure 137/61 08/14/2023 3:24 PM ROUGH ROUNDER Pulse 73 08/14/2023 3:24 PM ROUGH ROUNDER Temperature 36.3 ??C (97.3 ??F) 08/14/2023 3:24 PM CS T Respiratory Rate - - Oxygen Saturation 98% 08/14/2023 3:24 PM ROUGH ROUNDER Inhaled Oxygen Concentration - - Weight 75.6 kg (166 lb 9.6 oz) 08/14/2023 3:24 P M ROUGH ROUNDER Height - - Body Mass Index 29.51 06/11/2023 3:18 PM ROUGH ROUNDER documented in this encounter Nursing Notes * Anne-Marie Winn, RN - 08/14/2023 3:00 PM CST Oncology Nursing Note [facility] Lashirley Chung is a 72 y.o. [...] for 5 mg Compazine IVP obtained from [facility]. Given and patient had relief [...] Wheelchair Accompanied by: Spouse Discharged To: Home H ROUNDER documented in this encounter Plan of Treatment [...] rine carcinoma (HCC) Given 08/14/2023 3:47 PM ROUGH ROUNDER 5 mg sodium chloride 0.9% bolus 1,000 mL 1,000 mL, intravenous, at 666.7 mL/hr, Administer over 90 Minutes, Once, On Sat08/14/23 at 1545, For 1 doseIndications:Dehydratio n,Hypophosphatemia,Neuro-e ndocrine carcinoma (HCC) New Bag 08/14/2023 3:36 PM ROUGH ROUNDER 1,000 mL 666.7 mL/hr documented in this encounter Orders Appointment Requests Count Last Ordered Date Fi rst Ordered Date ONCBCN INFUSION APPT REQUEST 1 08/14/2023 documented in this encounter Care Teams Management Instructor Relationship Specialty Start Date End Date Julio César Briseno MD PCP - General 10/01/16 Eren Cr MD Referring Physician Medical Oncology 11/25/18 Yohana Bowen MD Radiation Oncologist Radiation Oncology 11/25/18 Alejo Mi MD [address] [address] Referring Physician Nephrology 03/07/23 documented as of this encounter
--- OUTSIDE RECORDS SUMMARY | 2024-06-26 01:55 | XMS_ITS | Encounter Summary ---
Author Organization [facility] Address [address] [place] [address] Phone Care Team Providers Care Char House Supervisor Name Role Phone Julio César Briseno MD Primary Care Provider [phone] Eren Cr MD Unavailable [phone] Yohana Bowen MD Unavailable [place] MD Unavailable [phone] Reason for Visit * Episode Based Medications (Routine) - Closed Specialty Diagnoses / Procedures Referred By Contac t Referred To Contact Diagnoses Neuro-endocrine carcinoma (HCC) Procedures study [id number] phase III cabozantinib Eren Cr MD [address] [place] [address] Phone: tel: fax: [facility] [address] [facility] Advanced [facility] 7th [place] [address] Phone: tel: Referral ID Status Reason Start Date Expiration Date Visits Re quested Visits Authorized [id number] Closed 06/21/2021 06/26/2024 1 99 Encounter Details Date Type Department Care Team (Latest Contact Info) Description 07/25/2023 12:00 PM MINER Research Med Pick-Up/CTRU Green End Man [facility] Oncology [address] [place] [address] Neuro-endocrine carcinoma (HCC) (Primary Dx) Social History [...] on file Legal Sex Female 2:41 PM MINER Gender Identity Not on file Sexual [...] Ordered Date First Ordered Date INV-[id number] cabozantinib (2018-02-122/[id number]) tablet 20 mg 1 07/25/2023 Nursing Count Last Ordered Date First Orde red Date ONCBCN STUDY COMMUNICATION 1 07/25/2023 ONCBCN TREATMENT PARAMETERS 1 07/25/2023 Appointment Requests Count Last Ordered Date Fi rst Ordered Date ONCBCN TAKE HOME STUDY DRUG APPT 1 07/25/19 24 documented in this encounter Care Teams Char House Supervisor Relationship Specialty Start Date End Date Julio César Briseno MD PCP - General 10/01/16 Eren Cr MD Referring Physician Medical Oncology 11/25/18 Yohana Bowen MD Radiation Oncologist Radiation Oncology 11/25/18 Alejo Mi MD [address] [address] Referring Physician Nephrology 03/07/23 documented as of this encounter
--- OUTSIDE RECORDS SUMMARY | 2024-06-26 01:55 | XMS_ITS | Encounter Summary ---
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) Procedures CT chest abdomen pelvis with contrast Eren Cr MD [address] [place] [address] Phone: tel: fax: [address] [address] Referral ID Status Reason Start Date Expiration Date Visits Re quested Visits Authorized [id number] Closed 07/17/2023 08/15/2024 1 1 PREVENTION OFFICER Reason for Visit * MRI/CAT/PET Scan (Routine) - Closed Specialty Diagnoses / Procedures [facility] Referred To Contact Radiology Diagnoses Neuroendocrine carcinoma (HCC) Malignant neoplasm metastatic to 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) Procedures CT chest abdomen pelvis with contrast Eren Cr MD [address] [facility] [address] [place] [address] Phone: tel: fax: [address] [place] [address] Referral ID Status Reason Start Date Expiration Date Visits Re quested Visits Authorized [id number] Closed 07/17/2023 08/15/2024 1 1 Encounter Details Date Type Department Care Team (Latest Contact Info) Description 08/16/2023 10:39 AM LOSS PREVENTION OFFICER - 08/16/2023 11:59 PM LOSS PREVENTION OFFICER Hospital Encounter [facility] [address] [place] [address] Eren Cr MD [address] [facility] [address] [facility] [place] [address] Neuroendocrine carcinoma (HCC); Malignant neoplasm metastatic to [...] Legal Sex Female 2:41 PM LOSS PREVENTION OFFICER Gender Identity Not on file Sexual [...] capsuleIndicatio ns:supplement Take 1 tablet by mouth inclinometer tester before breakfast 07/04/2016 4 clotrimazole-bet amethasone (LOTRISONE) cream Apply 1 Application topically daily as needed (rash) 4 coenzyme [id number] 100-5 mg-unit capsuleIndicatio ns:supplement Take 1 tablet by mouth inclinometer tester before breakfast 4 diphenoxylate-at ropine (LOMOTIL) 2.5-0.025 [...] dose).?? Avoid Jas's Wort, grapefruit products and [place] oranges while on treatment. 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 ??Largely stable hepatic, peritoneal, and omental metastases with the exception of one hepatic segment 4A/8 lesion which appears minimally increased in size compared to prior examination. 2. ??Stable mildly prominent right subclavicular and retroperitoneal lymph nodes. Electronically signed by: Shawn Saldaña M.D. Narrative 08/16/2023 12:30 PM LOSS PREVENTION OFFICER EXAMINATION: ??Computed tomography of the chest, abdomen [...] * (ABNORMAL) POCT creatinine (08/16/2023 11:03 AM LOSS PREVENTION OFFICER) Creatinine POC 1.3(H) 0.6 - 1.1 mg/dL [facility] Blood 08/16/2023 11:0 3 AM LOSS PREVENTION OFFICER 08/16/2023 11:03 AM LOSS PREVENTION OFFICER Eren Cr MD LAB POCT ORDERABLES - DEVICE Final Result [facility] Department [place] [address] documented in this encounter Visit Diagnoses Diagnosis [...] Indwelling Vascular Catheter Given 08/16/2023 11:30 AM LOSS PREVENTION OFFICER 500 Units ioversoL (OPTIRAY 350) syringe 100 mL 100 mL, intravenous, Once in imaging, contrast, Starting on Sat08/16/23 at 1108, For 1 dose Contrast Given 08/16/2023 11:16 AM LOSS PREVENTION OFFICER 75 mL sodium chloride 0.9% flush 10-20 mL 10-20 mL, intra-catheter, As needed, line care, with each use, Starting on Sat08/16/23 at 1051, Flush volume based on line type, size, and protocol. Given 08/16/2023 11:00 AM LOSS PREVENTION OFFICER 10 mL Port documented in this encounter Care Teams Helper Teacher Relationship Specialty Start Date End Date Julio César Briseno MD PCP - General 10/01/16 Eren Cr MD Referring Physician Medical Oncology 11/25/18 Yohana Bowen MD Radiation Oncologist Radiation Oncology 11/25/18 Alejo Mi MD [address] [address] Referring Physician Nephrology 03/07/23 documented as of this encounter
--- OUTSIDE RECORDS SUMMARY | 2024-06-26 01:55 | XMS_ITS | Encounter Summary ---
Author Organization [facility] Address [address] [place] [address] Phone Care Team Providers Care Lead Sql Developer Name Role Phone Julio César Briseno MD Primary Care Provider [phone] Eren Cr MD Unavailable [phone] Yohana Bowen MD Unavailable [place]jo Ramos MD Unavailable [phone] Reason for Visit * Reason Comments OP Infusion * Episode Based Medications (Routine) - Authorized Specialty Diagnoses / Procedures Referred By Contac t Referred To Contact Diagnoses Hypomagnesemia Eren Cr MD [address] [facility] [address] [place] [address] Phone: tel: fax: [facility] at [facility] [address] [facility] Advanced Medicine 7th [place] [address] Phone: tel: Referral ID Status Reason Start Date Expiration Date V isits Requested Visits Authorized [id number] Authorized 11/13/2021 04/01/2025 1 30 Encounter Details Date Type Department Care Team (Late st Contact Info) Description 08/27/2023 11:00 AM EDITOR DEPARTMENT Infusion [facility] Oncology [address] [place] [address] Hypomagnesemia (Primary Dx); Neuroendocrine carcinoma (HCC); Dehydration; [...] on file Legal Sex Female 2:41 PM EDITOR DEPARTMENT Gender Identity Not on file Sexual Orientation Straight 02/19/2021 9: 29 AM CDT Occupation Industry Job Start Date Job End Date retired Not on file Not on file Not on file documented as of this encounter Nursing Notes * Yvonne Lawrence RN - 08/27/2023 11:00 AM CST Oncology Nursing Note [facility] Lashirley Chung is a 72 [...] Spouse Discharged To: Home in stable condition. OR DEPARTMENT documented in this encounter Plan of Treatment [...] doseIndications:Hypomagn esemia New Bag 08/27/2023 11:33 AM EDITOR DEPARTMENT 500 mL/hr 500 mL/hr octreotide LAR (SandoSTATIN LAR) extended release intramuscular injection 30 mg 30 mg, intramuscular, Once, On Sat08/27/23 at 1200, For 1 dose, Refrigerate. For IM intragluteal administration only- alternate gluteal sites. 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) Given 08/27/2023 1:42 PM EDITOR DEPARTMENT 30 mg Left Dorsogluteal/B uttock prochlorperazine (COMPAZINE) injection 10 mg 10 mg, intravenous, Administer over 2 Minutes, Once, On Sat08/27/23 at 1145, For 1 doseIndications:Neuroend ocrine carcinoma (HCC),Dehydration Given 08/27/2023 11:28 AM EDITOR DEPARTMENT 10 mg documented in this encounter Orders Medications Ordered That Brett ht Not Have Been Administered Count Last Ordered Date First Ordered Date denosumab (XGEVA) subcutaneo us syringe 120 mg 1 08/27/2023 Nursing Count Last Ordered Date First Orde red Date ONCBCN NURSING COMMUNICATION [id number] 1 08/27 ONCBCN NURSING COMMUNICATION [id number] 1 0 08/27/2023 PHYSICIAN COMMUNICATION ORDER 1 08/27/2023 Appointment Requests Count Last Ordered Date Fi rst Ordered Date INFUSION APPT REQUEST 120 MIN 1 08/27/2023 ONCBCN INFUSION APPT REQUEST 1 08/27/2023 documented in this encounter Care Teams Lead Sql Developer Relationship Specialty Start Date End Date Julio César Briseno MD PCP - General 10/01/16 Eren Cr MD Referring Physician Medical Oncology 11/25/18 Yohana Bowen MD Radiation Oncologist Radiation Oncology 11/25/18 Alejo Mi MD [address] [address] Referring Physician Nephrology 03/07/23 documented as of this encounter
--- OUTSIDE RECORDS SUMMARY | 2024-06-26 01:55 | XMS_ITS | Encounter Summary ---
Author Organization [facility] Healthcare Address [address] [place] [address] Care Team Providers Care Supervisor Fertilizer Name Role Phone Julio César Briseno MD Primary Care Provider [phone] Eren Cr MD Unavailable [phone] Yohana Bowen MD Unavailable Alejo Mi MD Unavailable [phone] Reason for Visit * Reason Comments OP Infusion Encounter Details Date Type Department Care Team (Latest Contact Info) Description 09/04/2023 10:45 AM APPLICATION ASSISTANT - 09/04/2023 11:59 PM APPLICATION ASSISTANT Hospital Encounter [facility] Advanced Medicine ([facility]) [address] [place] [address] Dehydration (Primary Dx); Neuroendocrine carcinoma (HCC); [...] on file Legal Sex Female 2:41 PM APPLICATION ASSISTANT Gender Identity Not on file Sexual Orientation Straight 02/19/2021 9: 29 AM CDT Occupation Industry Job Start Date Job End Date retired Not on file Not on file Not on file documented as of this encounter Last Filed Vital Signs Vital Sign Reading Time Taken Comments Blood Pressure 138/74 09/04/2023 1:55 PM APPLICATION ASSISTANT Pulse 64 09/04/2023 1:55 PM APPLICATION ASSISTANT Temperature 36.3 ??C (97.4 ??F) 09/04/2023 1:55 PM CS T Respiratory Rate 18 09/04/2023 1:55 PM APPLICATION ASSISTANT Oxygen Saturation 98% 09/04/2023 1:55 PM APPLICATION ASSISTANT Inhaled Oxygen Concentration - - Weight 77.7 kg (171 lb 6.4 oz) 09/04/2023 10:49 AM APPLICATION ASSISTANT Height - - Body Mass Index 30.36 06/11/2023 3:18 PM APPLICATION ASSISTANT documented in this encounter Discharge Instructions * Patient Instructions* Vivian Villar, [place] - 09/04/2023 11:30 AM APPLICATION ASSISTANT .After 4:30 PM during the week, on weekends and holidays, call [phone] and ask to have the Straw Baler Physician paged for you. Saturday through Saturday, 8 AM to 4:30 PM, call [phone] [facility] Oncology Physician at [facility] Medicine and ask for a member [...] any non-prescription medicine without your doctor's approval ICATION ASSISTANT documented in this encounter Medications at Time [...] 0.9 % sodium chloride ([facility] sodium chloride 0.9%) injectionIndicat ions:line care Infuse 10 mL into a venous catheter once a week On saturday 4 0.9 % sodium chloride (sodium chloride 0.9%) 0.9% infusion 05/22/2023 4 ascorbic acid, vitamin C, 500 mg capsuleIndicatio ns:supplement Take 1 tablet by mouth control room tender before breakfast 07/04/2016 4 clotrimazole-bet amethasone (LOTRISONE) cream Apply 1 Application topically daily as needed (rash) 4 coenzyme [id number] 100-5 mg-unit capsuleIndicatio ns:supplement Take 1 tablet by mouth control room tender before breakfast 4 diphenoxylate-at ropine (LOMOTIL) 2.5-0.025 [...] week Fluids every -Heparin to flush 4 [facility] cabozantinib/maris cebo (2018-02-122/[id number]) 20 mg tabletIndication s:cancer study Take 1 tablet (20 mg total) by mouth nightly Take on an empty stomach (no food for 2 hours before and 1 hour after each dose).?? Avoid Jas's Wort, grapefruit products and [place] oranges while on treatment. placed on hold 09/26/22 for covid 01/29/2022 4 levothyroxine (SYNTHROID) 88 mcg tabletIndication s:Hypothyroidism due to medication Take 1 tablet (88 mcg total) by mouth control room tender before breakfast 90 tablet 1 10/12/2022 4 [...] 09/04/2023 11:30 AM CST Pt presented to [facility] for IV hydration and potential [...] accompanied by spouse. 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 risk/SP[employer] CARDING ONC Fall Prevention Note: Patient did not qualify for high risk fall interventions today. However, RN still reviewed the fallprevention education pamphlet of Keeping You Safe: Fall Assessment and Prevention . Verbalized understanding of all discussed. Questions answered at this time. ICATION ASSISTANT documented in this encounter Plan of [...] ne carcinoma (HCC),Dehydration Given 09/04/2023 1:50 PM APPLICATION ASSISTANT 500 Units prochlorperazine (COMPAZINE) injection 10 mg 10 mg, intravenous, Administer over 2 Minutes, Once, On Sat09/04/23 at 1145, For 1 doseIndications:Neuroendocri ne carcinoma (HCC),Dehydration Given 09/04/2023 11:34 AM APPLICATION ASSISTANT 10 mg sodium chloride 0.9% bolus 1,000 mL 1,000 mL, intravenous, at 500 mL/hr, Administer over 2 Hours, Once, On Sat09/04/23 at 1120, For 1 doseIndications:Neuroendocri ne carcinoma (HCC),Dehydration New Bag 09/04/2023 11:33 AM APPLICATION ASSISTANT 1,000 mL 500 mL/hr documented in [...] 09/04/2023 documented in this encounter Care Teams Supervisor Fertilizer Relationship Specialty Start Date End Date Julio César Briseno MD PCP - General 10/01/16 Eren Cr MD Referring Physician Medical Oncology 11/25/18 Yohana Bowen MD Radiation Oncologist Radiation Oncology 11/25/18 Alejo Mi MD [address] [facility] [address] [place] [address] Referring Physician Nephrology 03/07/23 documented as of this encounter
--- OUTSIDE RECORDS SUMMARY | 2024-06-26 01:55 | XMS_ITS | Encounter Summary ---
Author Organization [facility] Address [address] [place] [address] Phone Care Team Providers Care Emd Special Education Teacher Name Role Phone Julio César Briseno MD Primary Care Provider [phone] Eren Cr MD Unavailable [phone] Yohana Bowen MD Unavailable Alejo Mi MD Unavailable [phone] Encounter Details Date Type Department Care Team (Late st Contact Info) Description 08/22/2023 Orders Only [facility] Oncology [address] [place] [address] Eren Cr MD [address] [place] [address] Neuroendocrine carcinoma (HCC) (Primary Dx); Malignant neoplasm [...] file Legal Sex Female 2:41 PM LADLE CAR OPERATOR Gender Identity Not on file Sexual Orientation Straight 02/19/2021 9: 29 AM CDT Occupation Industry Job Start Date Job End Date retired Not on file Not on file Not on file documented as of this encounter Plan of Treatment Not on file documented as of this encounter Results * (ABNORMAL) Magnesium (08/27/2023 9:38 AM LADLE CAR OPERATOR) Magnesium 1.3(L) 1.4 - 2.5 mg/dL [facility] Comment:Testing performed by : [address] [address] Blood 08/27/2023 9:38 AM LADLE CAR OPERATOR 08/27/2023 9:39 AM LADLE CAR OPERATOR Eren Cr MD LAB BLOOD ORDERABLES Final Re sult [facility] Department [place] [address] * (ABNORMAL) Chromogranin A (08/27/2023 9:38 AM LADLE CAR OPERATOR) Chromogranin A 2075(H) <93 ng/mL [facility]ASON [...] a homogeneous time-resolved immunofluorescent assay manufactured by [employer] and performed on the [employer] Closureor Compact Plus. ? Values obtained with different assay methods or kits may be different and cannot be used interchangeably. ? Test results cannot be interpreted as absolute evidence for the presence or absence of malignant disease. Test Performed by: [place] [address] Blood Donor Unit Assistant: Immanuel Novak M.D. Ph.D.; CLIA# [id number] Blood 08/27/2023 9:38 AM LADLE CAR OPERATOR 08/27/2023 11:12 AM LADLE CAR OPERATOR Eren Cr MD LAB BLOOD ORDERABLES Final Re sult [facility] Department [place] [address] * (ABNORMAL) Comprehensive metabolic panel (08/27/2023 9:38 AM LADLE CAR OPERATOR) [facility] Sodium 140 135 - 145 mmol/L [facility] Comment:Testing performed by : [facility], [address] [place] [address] Potassium, pl 3.7 3.3 - 4.9 mmol/L [facility] Chloride 108 97 - 110 mmol/L [facility] CO2 26 22 - 32 mmol/L [facility] Anion gap 6 2 - 15 mmol/L [facility] BUN 10 6 - 25 mg/dL [facility] Creatinine 1.07 0.60 - 1.10 mg/dL [facility] Glucose 123 70 - 199 mg/dL [facility] [...] 2022. Calcium 9.2 8.5 - 10.3 mg/dL [facility] Bilirubin, total 0.5 0.1 - 1.2 mg/dL [facility] Protein, pl 6.1(L) 6.5 - 8.5 g/dL [facility] Albumin 3.9 3.5 - 5.0 g/dL [facility] Alk phos 63 40 - 130 Units/L [facility] ALT 22 7 - 45 Units/L [facility] AST 31 10 - 45 Units/L [facility] Blood 08/27/2023 9:38 AM LADLE CAR OPERATOR 08/27/2023 9:39 AM LADLE CAR OPERATOR Eren Cr MD LAB BLOOD ORDERABLES Final Re sult [facility] Department of Laboratories [place], [place] [id number] * (ABNORMAL) CBC with auto differential (08/27/2023 9:38 AM LADLE CAR OPERATOR) [facility] WBC 2.6(L) 3.8 - 9.9 K/cumm [facility] Comment:Testing performed by : [facility], [address] [place] [address] Hgb 10.7(L) 11.9 - 15.5 g/dL [facility] Comment:Testing performed by : [facility], [address] [place] [address] Hct 33.4(L) 35.6 - 45.5 % [facility] Comment:Testing performed by : [facility], [address] [place] [address] Plt 76(L) 150 - 400 K/cumm [facility] Comment:Testing performed by : [facility], [address] [place] [address] MPV 10.1 9.1 - 12.3 fL [facility] RBC 3.37(L) 3.90 - 5.20 M/cumm [facility] MCV 99.1(H) 81.3 - 96.4 fL [facility] MCH 31.8 27.1 - 33.3 pg [facility] MCHC 32.0(L) 32.3 - 35.7 g/dL [facility] RDW CV 15.1(H) 11.1 - 14.9 % [facility] RDW SD 54.3(H) 35.7 - 48.1 fL [facility] NRBC abs 0.00 0.00 - 0.01 K/cumm [facility] Blood 08/27/2023 9:38 AM LADLE CAR OPERATOR 08/27/2023 9:39 AM LADLE CAR OPERATOR Eren Cr MD LAB BLOOD ORDERABLES Edited R esult - Final Performing Organization Address [facility] Co de Phone Number [facility] Department [place] [address] * (ABNORMAL) Vitamin D 25 hydroxy (08/27/2023 9:38 AM LADLE CAR OPERATOR) Vitamin D 25-OH 20(L) 30 - 80 ng/mL [facility] Blood 08/27/2023 9:38 AM LADLE CAR OPERATOR 08/27/2023 10:40 AM LADLE CAR OPERATOR Eren Cr MD LAB BLOOD ORDERABLES Final Re sult Performing Organization Address City/[facility]/ZIP Co de Phone Number [facility] Department [place] [address] * (ABNORMAL) Phosphorus (08/27/2023 9:38 AM LADLE CAR OPERATOR) Pathologist [facility] Phosphorus, pl 1.5(L) 2.3 - 4.5 mg/dL [facility] Comment:Testing performed by : [facility], [address] [place] [address] Blood 08/27/2023 9:38 AM LADLE CAR OPERATOR 08/27/2023 9:39 AM LADLE CAR OPERATOR Eren Cr MD LAB BLOOD ORDERABLES Final Re sult Performing Organization Address [facility]/State/[facility] Co de Phone Number [facility] Department [place] [address] * Lipid panel (08/27/2023 9:38 AM LADLE CAR OPERATOR) [facility] Cholesterol 137 30 - 199 mg/dL [facility] [...] revised on 2018. Triglycerides 127 <=149 mg/dL [facility] Comment: Interpretive [...] revised on 2018. HDL 59 >=40 mg/dL [facility] Comment: Interpretive [...] 2018. LDL, calculated 53 <=129 mg/dL [facility] [...] revised on 2018. Non-HDL Cholesterol 78 mg/dL [facility] Comment: Interpretive [...] revised on 2018. Chol/HDL ratio 2 [facility] Blood 08/27/2023 9:38 AM LADLE CAR OPERATOR 08/27/2023 10:40 AM LADLE CAR OPERATOR Eren Cr MD LAB BLOOD ORDERABLES Final Re sult [facility] Department [place] [address] * Protein / creatinine ratio, urine, random (08/27/2023 9:30 AM LADLE CAR OPERATOR) Protein, ur, quant 27.5 mg/dL [facility] Comment: Interpretive Data No reference range established. Current interpretive data was last revised 2018. Creatinine Ur 218.2 mg/dL [facility] Comment: Interpretive Data No reference range established. Current interpretive data was last revised 2018. Protein/creatinin e ratio 126.0 0.0 - 180.0 mg/g CR [facility] Urine 08/27/2023 9:30 AM LADLE CAR OPERATOR 08/27/2023 10:46 AM LADLE CAR OPERATOR us Eren Cr MD LAB URINE ORDERABLES Final Re sult [facility] Department [place] [address] documented in this encounter Visit Diagnoses Diagnosis [...] 24 documented in this encounter Care Teams Emd Special Education Teacher Relationship Specialty Start Date End Date Julio César Briseno MD PCP - General 10/01/16 Eren Cr MD Referring Physician Medical Oncology 11/25/18 Yohana Bowen MD Radiation Oncologist Radiation Oncology 11/25/18 Alejo Mi MD [address] [address] Referring Physician Nephrology 03/07/23 documented as of this encounter
--- OUTSIDE RECORDS SUMMARY | 2024-06-26 01:55 | XMS_ITS | Encounter Summary ---
Author Organization [facility] Address [address] [place] [address] Phone Care Team Providers Care Pedicab Driver Name Role Phone Julio César Briseno MD Primary Care Provider Eren Cr MD Unavailable [phone] Yohana Bowen MD Unavailable Alejo Mi MD Unavailable [phone] Encounter Details Date Type Department Care Team (Late st Contact Info) Description 07/25/2023 Orders Only [facility] Oncology [address] [place] [address] Eren Cr MD [address] [place] [address] Social History Tobacco Use Types Packs/Day Years [...] on file Legal Sex Female 2:41 PM NUMBERER AND WIRER Gender Identity Not on file Sexual Orientation Straight 02/19/2021 9: 29 AM CDT Occupation Industry Job Start Date Job End Date retired Not on file Not on file Not on file documented as of this encounter Plan of Treatment Not on file documented as of this encounter Visit Diagnoses Not on filedocumented in this encounter Care Teams Pedicab Driver Relationship Specialty Start Date End Date Julio César Briseno MD PCP - General 10/01/16 Eren Cr MD Referring Physician Medical Oncology 11/25/18 Yohana Bowen MD Radiation Oncologist Radiation Oncology 11/25/18 Alejo Mi MD [address] [place] [address] Referring Physician Nephrology 03/07/23 documented as of this encounter
--- OUTSIDE RECORDS SUMMARY | 2024-06-26 01:55 | XMS_ITS | Encounter Summary ---
Author Organization [facility] [employer] [facility] Address [address] [place] [address] Phone Care Team Providers Care Director Of Radiology Name Role Phone Julio César Briseno MD Primary Care Provider [phone] Eren Cr MD Unavailable [phone] Yohana Bowen MD Unavailable Alejo Mi MD Unavailable [phone] Encounter Details Date Type Department Care Team (Late st Contact Info) Description 07/31/2023 3:00 PM CORPORATE TECHNICAL RECRUITER Infusion [facility] Oncology [address] [facility] Advanced Medicine 7th [place] [address] Dehydration (Primary Dx); Neuroendocrine carcinoma [...] file Legal Sex Female 2:41 PM CORPORATE TECHNICAL RECRUITER Gender Identity Not on file Sexual Orientation Straight 02/19/2021 9: 29 AM CDT Occupation Industry Job Start Date Job End Date retired Not on file Not on file Not on file documented as of this encounter Last Filed Vital Signs Vital Sign Reading Time Taken Comments Blood Pressure 101/59 07/31/2023 3:07 PM CORPORATE TECHNICAL RECRUITER Pulse 77 07/31/2023 3:07 PM CORPORATE TECHNICAL RECRUITER Temperature 36.3 ??C (97.3 ??F) 07/31/2023 3:07 PM CS T Respiratory Rate 18 07/31/2023 3:07 PM CORPORATE TECHNICAL RECRUITER Oxygen Saturation 97% 07/31/2023 3:07 PM CORPORATE TECHNICAL RECRUITER Inhaled Oxygen Concentration - - Weight 75.2 kg (165 lb 12.8 oz) 07/31/2023 3:07 PM CORPORATE TECHNICAL RECRUITER Height - - Body Mass Index 29.37 06/11/2023 3:18 PM CORPORATE TECHNICAL RECRUITER documented in this encounter Nursing Notes * Anne-Marie Winn, RN - 07/31/2023 3:00 PM CST Oncology Nursing Note [facility] La Chung is a 72 [...] Ambulatory Accompanied by: Spouse Discharged To: Home ORATE TECHNICAL RECRUITER documented in this encounter Plan of Treatment [...] carcinoma (HCC),Dehydration New Bag 07/31/2023 3:18 PM CORPORATE TECHNICAL RECRUITER 1,000 mL 500 mL/hr documented in this encounter Orders Medications Ordered That Brett ht Not Have Been Administered Count Last Ordered Date First Ordered Date sodium chloride 0.9% bolus 1,000 mL 1 07/31 Appointment Requests Count Last Ordered Date Fi rst Ordered Date ONCBCN INFUSION APPT REQUEST 1 07/31/2023 documented in this encounter Care Teams Director Of Radiology Relationship Specialty Start Date End Date Julio César Briseno MD PCP - General 10/01/16 Eren Cr MD Referring Physician Medical Oncology 11/25/18 Yohana Bowen MD Radiation Oncologist Radiation Oncology 11/25/18 Alejo Mi MD [address] [place] [address] Referring Physician Nephrology 03/07/23 documented as of this encounter
--- OUTSIDE RECORDS SUMMARY | 2024-06-26 01:55 | XMS_ITS | Encounter Summary ---
Author Organization [facility] Address [address] [place] [address] Phone Care Team Providers Care Jewel Blocker And Sawyer Name Role Phone Julio César Briseno MD Primary Care Provider Eren Cr MD Unavailable [phone] Yohana Bowen MD Unavailable Alejo Mi MD Unavailable [phone] Encounter Details Date Type Department Care Team (Late st Contact Info) Description 08/27/2023 Orders Only [facility] Oncology [address] [place] [address] Eren Cr MD [address] [place] [address] Social History Tobacco Use Types Packs/Day Years [...] file Legal Sex Female 2:41 PM TOOL PROGRAMMER Gender Identity Not on file Sexual Orientation Straight 02/19/2021 9: 29 AM CDT Occupation Industry Job Start Date Job End Date retired Not on file Not on file Not on file documented as of this encounter Plan of Treatment Not on file documented as of this encounter Visit Diagnoses Not on filedocumented in this encounter Care Teams Jewel Blocker And Sawyer Relationship Specialty Start Date End Date Julio César Briseno MD PCP - General 10/01/16 Eren Cr MD Referring Physician Medical Oncology 11/25/18 Yohana Bowen MD Radiation Oncologist Radiation Oncology 11/25/18 Alejo Mi MD [address] [place] [address] Referring Physician Nephrology 03/07/23 documented as of this encounter
--- OUTSIDE RECORDS SUMMARY | 2024-06-26 01:55 | XMS_ITS | Encounter Summary ---
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 [...] file Legal Sex Female 2:41 PM OFFICE COORDINATOR Gender Identity Not on file Sexual [...] 1 doseIndications:Hypophospha temia Given 07/25/2023 11:22 AM OFFICE COORDINATOR 8 mg sodium chloride 0.9% bolus 1,000 mL 1,000 mL, intravenous, at 500 mL/hr, Administer over 2 Hours, Once, On Lydia 07/25/23 at 1200, For 1 doseIndications:Neuroendocr ine carcinoma (HCC),Dehydration New Bag 07/25/2023 11:23 AM OFFICE COORDINATOR 1,000 mL 500 mL/hr documented in this encounter Orders Medications Ordered That Brett ht Not Have Been Administered Count Last Ordered Date First Ordered Date denosumab (XGEVA) subcutaneo us syringe 120 mg 1 07/25/2023 octreotide LAR (SandoSTATIN LAR) extended release intramuscular injection 30 mg 1 07/25/2023 Nursing Count Last Ordered Date First Orde red Date ONCBCN NURSING COMMUNICATION [id number] 1 07/25 ONCBCN NURSING COMMUNICATION [id number] 1 0 07/25/2023 PHYSICIAN COMMUNICATION ORDER 1 07/25/2023 Appointment Requests Count Last Ordered Date Fi rst Ordered Date ONCBCN INJECTION APPOINTMENT REQUEST 1 07/08 documented in this encounter Care Teams Preparole Counseling Aide Relationship Specialty Start Date End Date Julio César Briseno MD PCP - General 10/01/16 Eren Cr MD Referring Physician Medical Oncology 11/25/18 Yohana Bowen MD Radiation Oncologist Radiation Oncology 11/25/18 Alejo Mi MD [address] [place] [address] Referring Physician Nephrology 03/07/23 documented as of this encounter
--- OUTSIDE RECORDS SUMMARY | 2024-06-26 01:55 | XMS_ITS | Encounter Summary ---
Author Organization [facility] Address [address] [place] [address] Phone Care Team Providers Care Other Wood Processing Machine Operator Name Role Phone Julio César Briseno MD Primary Care Provider Eren Cr MD Unavailable [phone] Yohana Bowen MD Unavailable Alejo Mi MD Unavailable [phone] Encounter Details Date Type Department Care Team (Late st Contact Info) Description 08/22/2023 Telephone [facility] Oncology [address] [place] [address] Estella Bueno Social History Tobacco Use Types [...] on file Legal Sex Female 2:41 PM DRY CLEANER Gender Identity Not on file Sexual Orientation Straight 02/19/2021 9: 29 AM CDT Occupation Industry Job Start Date Job End Date retired Not on file Not on file Not on file documented as of this encounter Miscellaneous Notes * Telephone Encounter - Estella Bueno - 08/22/2023 10:48 AM CST SW spouse re 08/27 appt He confirmed they would get details on mychart CLEANER documented in this encounter Plan of Treatment Not on file documented as of this encounter Visit Diagnoses Not on filedocumented in this encounter Care Teams Other Wood Processing Machine Operator Relationship Specialty Start Date End Date Julio César Briseno MD PCP - General 10/01/16 Eren Cr MD Referring Physician Medical Oncology 11/25/18 Yohana Bowen MD Radiation Oncologist Radiation Oncology 11/25/18 LickingAlejo Waggoner MD [id number] [place] [address] Referring Physician Nephrology 03/07/23 documented as of this encounter
--- OUTSIDE RECORDS SUMMARY | 2024-06-26 01:55 | XMS_ITS | Encounter Summary ---
Author Organization [facility] [employer] [facility] Address [address] [place] [address] Phone Care Team Providers Care Veneer Jointer Helper Name Role Phone Julio César Briseno MD Primary Care Provider Eren Cr MD Unavailable [phone] Yohana Bowen MD Unavailable Alejo Mi MD Unavailable [phone] Encounter Details Date Type Department Care Team (Late st Contact Info) Description 08/06/2023 Orders Only [facility] Oncology [address] [facility] Advanced Medicine 7th [place] [address] [place] [address] Hien Jaimes, [facility] Social History Tobacco Use Types Packs/Day [...] on file Legal Sex Female 2:41 PM 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 Gender Identity Not on file Sexual Orientation Straight 02/19/2021 9: 29 AM CDT Occupation Industry Job Start Date Job End Date retired Not on file Not on file Not on file documented as of this encounter Plan of Treatment Not on file documented as of this encounter Visit Diagnoses Not on filedocumented in this encounter Care Teams Veneer Jointer Helper Relationship Specialty Start Date End Date Julio César Briseno MD PCP - General 10/01/16 Eren Cr MD Referring Physician Medical Oncology 11/25/18 Yohana Bowen MD Radiation Oncologist Radiation Oncology 11/25/18 Alejo Mi MD [address] [address] Referring Physician Nephrology 03/07/23 documented as of this encounter
--- OUTSIDE RECORDS SUMMARY | 2024-06-26 01:55 | XMS_ITS | Encounter Summary ---
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) Procedures [place] DENOSUMAB INJECTION DENOSUMAB (XGEVA) Eren Cr MD [address] [facility] [address] [place] [address] Phone: tel: fax: [facility] [address] [facility] Advanced Medicine 7th [place] [address] Phone: tel: Referral ID Status Reason Start Date Expiration Date V isits Requested Visits Authorized [id number] Authorized 03/02/2019 10/06/2024 1 60 Encounter Details Date Type Department Care Team (Late st Contact Info) Description 07/25/2023 11:00 AM SENIOR STOCK PLAN 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 Infusion [facility] Oncology [address] [place] [address] Neuroendocrine carcinoma (HCC) (Primary Dx); Dehydration; Hypophosphatemia [...] file Legal Sex Female 2:41 PM SENIOR STOCK PLAN 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 Gender Identity Not on file Sexual Orientation Straight 02/19/2021 9: 29 AM CDT Occupation Industry Job Start Date Job End Date retired Not on file Not on file Not on file documented as of this encounter Nursing Notes * Cornelia Giron, [place] - 07/25/2023 11:00 AM CST Oncology Nursing Note [facility] ONCOL[facility]Y La Chung is [...] Ambulatory Accompanied by: Spouse Discharged To: Home OR STOCK PLAN 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 documented in this encounter Plan of [...] bone (CMS/HCC) (HCC) Given 07/25/2023 12:56 PM SENIOR STOCK PLAN 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 120 mg Right Lower Abdomen octreotide LAR (SandoSTATIN LAR) extended release intramuscular injection 30 mg 30 mg, intramuscular, Once, On Lydia 07/25/23 at 1145, For 1 dose, Refrigerate. For IM intragluteal administration only- alternate gluteal sites. 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) Given 07/25/2023 12:57 PM SENIOR STOCK PLAN 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 30 mg Right Dorsogluteal/Butto ck documented in this encounter Orders Medications Ordered That Brett ht Not Have Been Administered Count Last Ordered Date First Ordered Date ondansetron (ZOFRAN) injection 8 mg 1 07/25 sodium chloride 0.9% bolus 1,000 mL 1 07/25 documented in this encounter Care Teams Waste Machine Tender Relationship Specialty Start Date End Date Julio César Briseno MD PCP - General 10/01/16 Eren Cr MD Referring Physician Medical Oncology 11/25/18 Yohana Bowen MD Radiation Oncologist Radiation Oncology 11/25/18 Alejo Mi MD [address] [place] [address] Referring Physician Nephrology 03/07/23 documented as of this encounter
--- OUTSIDE RECORDS SUMMARY | 2024-06-26 01:55 | XMS_ITS | Encounter Summary ---
Author Organization [facility] Address [address] [place] [address] Phone Care Team Providers Care Edge Plugger Name Role Phone Julio César Briseno MD Primary Care Provider [phone] Eren Cr MD Unavailable [phone] Yohana Bowen MD Unavailable [place]jo Ramos MD Unavailable [phone] Reason for Visit * Episode Based Medications (Routine) - Closed Specialty Diagnoses / Procedures Referred By Contac t Referred To Contact Diagnoses Neuro-endocrine carcinoma (HCC) Procedures study [id number] phase III cabozantinib Eren Cr MD [address] [place] [address] Phone: tel: fax: [facility] [address] [facility] Medicine 7th [place] [address] Phone: tel: Referral ID Status Reason Start Date Expiration Date Visits Re quested Visits Authorized [id number] Closed 06/21/2021 06/26/2024 1 99 Encounter Details Date Type Department Care Team (Latest Contact Info) Description 08/27/2023 9:30 AM CARDROOM MANAGER Clinical Support [facility] [address] [place] [address] Neuro-endocrine carcinoma (HCC) Social History Tobacco Use [...] on file Legal Sex Female 2:41 PM CARDROOM MANAGER Gender Identity Not on file Sexual [...] 08/27/2023 documented in this encounter Care Teams Edge Plugger Relationship Specialty Start Date End Date Julio César Briseno MD PCP - General 10/01/16 Eren Cr MD Referring Physician Medical Oncology 11/25/18 Yohana Bowen MD Radiation Oncologist Radiation Oncology 11/25/18 Alejo Mi MD [address] [place] [address] Referring Physician Nephrology 03/07/23 documented as of this encounter
--- OUTSIDE RECORDS SUMMARY | 2024-06-26 01:55 | XMS_ITS | Encounter Summary ---
Author Organization [facility] Healthcare Address [address] [place] [address] Care Team Providers Care Transverse Abdominal Muscle Nurse Name Role Phone Julio César Briseno MD Primary Care Provider [phone] Eren rC MD Unavailable [phone] Yohana Bowen MD Unavailable Alejo Mi MD Unavailable [phone] Encounter Details Date Type Department Care Team (Latest Contact Info) Description 09/11/2023 8:16 AM RFID MANAGER - 09/11/2023 11:59 PM RFID MANAGER Hospital Encounter [facility] [place] [facility] ([facility]) [address] [place] [phone] Hypothyroidism, unspecified type Discharge Disposition: Discharge to [...] file Legal Sex Female 2:41 PM RFID MANAGER Gender Identity Not on file Sexual [...] by mouth nightly 0.9 % sodium chloride ([facility] sodium chloride 0.9%) injectionIndicati ons:line care Infuse 10 mL into a venous catheter once a week On saturday 4 0.9 % sodium chloride (sodium chloride 0.9%) 0.9% infusion 05/22/2023 4 ascorbic acid, vitamin C, 500 mg capsuleIndication s:supplement Take 1 tablet by mouth server engineer before breakfast 07/04/2016 4 clotrimazole-beta methasone (LOTRISONE) cream Apply 1 Application topically daily as needed (rash) 4 coenzyme [id number] E 100-5 mg-unit capsuleIndication s:supplement Take 1 tablet by mouth server engineer before breakfast 4 diphenoxylate-atr opine (LOMOTIL) [...] week Fluids every -Heparin to flush 4 [facility] cabozantinib/plac abdulkadir (/[id number]) 20 mg tabletIndications :cancer study Take 1 tablet (20 mg total) by mouth nightly Take on an empty stomach (no food for 2 hours before and 1 hour after each dose).?? Avoid [place]'s Wort, grapefruit products and [place] oranges while on treatment. placed on hold [...] 1 tablet (88 mcg total) by mouth server engineer before breakfast 90 tablet 1 10/12/2022 [...] Diagnosis Comments TSH Routine 09/11/2023 9:02 AM RFID MANAGER Hypothyroidism, unspecified type T4, FREE Routine 09/11/2023 9:02 AM RFID MANAGER Hypothyroidism, unspecified type CORTISOL Routine 09/11/2023 9:02 AM RFID MANAGER Hypothyroidism, unspecified type ACTH Routine 09/11/2023 7:44 AM RFID MANAGER Hypothyroidism, unspecified type documented in this encounter Results * Cortisol (09/11/2023 9:02 AM RFID MANAGER) Cortisol 10.0 4.8 - 19.5 mcg/dL Comment: Interpretive Data: Morning hours 6-10 a.m. ??4.8 - 19.5 mcg/dL Afternoon hours 4-8 p.m. ??2.68 - 10.5 mcg/dL This analyte undergoes marked diurnal variation. Current interpretive data was last revised 21. Blood 09/11/2023 9:02 AM RFID MANAGER 09/11/2023 9:37 AM RFID MANAGER Narrative JASON BLACK - 09/11/2023 10:28 AM RFID MANAGER 8AM cortisol us Leila Gaytan MD LAB BLOOD ORDERABLES Final R esult JASON [facility] Department of Laboratories [place], [place] [id number] * T4, free (09/11/2023 9:02 AM RFID MANAGER) Free T4 1.38 0.90 - 1.70 ng/dL Blood 09/11/2023 9:02 AM RFID MANAGER 09/11/2023 9:37 AM RFID MANAGER Leila Gaytan MD LAB BLOOD ORDERABLES Final R esult Performing Organization Address [facility] [place] [address] * (ABNORMAL) TSH (09/11/2023 9:02 AM RFID MANAGER) Thyroid Stimulating Hormone 4.79(H) 0.30 - 4.20 mcIUnit/mL Blood 09/11/2023 9:02 AM RFID MANAGER 09/11/2023 9:37 AM RFID MANAGER Leila Gaytan MD LAB BLOOD ORDERABLES Final R esult Performing Organization Address [facility] [place] [address] * ACTH (09/11/2023 7:44 AM RFID MANAGER) ACTH 25.8 7.0 - 63.0 pg/mL Blood 09/11/2023 7:44 AM RFID MANAGER 09/11/2023 9:23 AM RFID MANAGER Leila Gaytan MD LAB BLOOD ORDERABLES Final R esult Performing Organization Address [facility] [place] [address] documented in this encounter Visit Diagnoses Diagnosis Hypothyroidism, unspecified type documented in this encounter Care Teams Transverse Abdominal Muscle Nurse Relationship Specialty Start Date End Date Julio César Briseno MD PCP - General 10/01/16 Eren Cr MD Referring Physician Medical Oncology 11/25/18 Yohana Bowen MD Radiation Oncologist Radiation Oncology 11/25/18 Alejo Mi MD [address] [place] [address] Referring Physician Nephrology 03/07/23 documented as of this encounter
--- OUTSIDE RECORDS SUMMARY | 2024-06-26 01:55 | XMS_ITS | Encounter Summary ---
Author Organization [facility] Address [address] [place] [address] Phone Care Team Providers Care Last Puller Name Role Phone Julio César Briseno MD Primary Care Provider [phone] Eren Cr MD Unavailable [phone] Yohana Bowen MD Unavailable [place]jo Waggoner MD Unavailable [phone] Encounter Details Date Type Department Care Team (Latest Contact Info) Description 09/06/2023 3:00 PM INK JET OPERATOR Office Visit [facility] Endocrinology Metabolism and Lipid [address] [facility] Advanced Medicine 13th [place] [address] [place] [phone] Leila Gaytan MD [address] [place], [place] [id number] Hypothyroidism, unspecified type (Primary Dx); High risk [...] on file Legal Sex Female 2:41 PM INK JET OPERATOR Gender Identity Not on file Sexual Orientation Straight 02/19/2021 9: 29 AM CDT Occupation Industry Job Start Date Job End Date retired Not on file Not on file Not on file documented as of this encounter Last Filed Vital Signs Vital Sign Reading Time Taken Comments Blood Pressure 155/82 09/06/2023 2:48 PM INK JET OPERATOR Pulse 74 09/06/2023 2:48 PM INK JET OPERATOR Temperature 36.4 ??C (97.6 ??F) 09/06/2023 2:48 PM CS T Respiratory Rate - - Oxygen Saturation - - Inhaled Oxygen Concentration - - Weight 77.4 kg (170 lb 9.6 oz) 09/06/2023 2:48 P M INK JET OPERATOR Height 160 cm (5' 3 ) 09/06/2023 2:48 PM INK JET OPERATOR Body Mass Index 30.22 09/06/2023 2:48 PM INK JET OPERATOR documented in this encounter Patient Instructions * Patient Instructions* Leila Gaytan MD - 09/06/2023 3:00 PM INK JET OPERATOR - get labs done around 8am JET OPERATOR documented in this encounter Ordered Prescriptions Prescription [...] Progress Notes * Leila Gaytan MD - 09/06/2023 3:00 PM CST Images [...] Authorizing Provider 0.9 % sodium chloride ([facility] sodium chloride 0.9%) injection Infuse 10 mL into a venous catheter once a week On saturday Yes Levon Kee MD ascorbic acid, vitamin C, 500 mg capsule Take 1 tablet by mouth fundraising director before breakfast 07/04/16 Yes Levon Kee MD cholecalciferol (VITAMIN D-3) 1,000 unit Take 1 tablet/capsule (1,000 Units total) by mouth daily Patient taking differently: Take 1 tablet/capsule (1,000 Units total) by mouth every morning 11/16/22 11/16/23 Yes Alejo Mi MD clotrimazole-betamethasone (LOTRISONE) cream Apply 1 Application topically daily as needed (rash) Yes Levon Kee MD coenzyme [id number] E 100-5 mg-unit capsule Take 1 tablet by mouth fundraising director before breakfast Yes Levon Kee MD [...] -Heparin to flush Yes Levon Kee MD [facility] cabozantinib/placebo (/[id number]) 20 mg tablet Take 1 tablet (20 mg total) bymouth nightly Take on an empty stomach (no food for 2 hours before and 1 hour after each dose). Avoid [place]'s Wort, grapefruit products and [place] oranges while on treatment. placed on hold 09/26/22 for covid 01/29/22 Yes Eren Cr MD levothyroxine (SYNTHROID) 88 mcg tablet Take 1 tablet (88 mcg total) by mouth fundraising director before breakfast Patient taking differently: Take 1 tablet (88 mcg total) by mouth fundraising director before breakfast 10/12/22 Yes Eren Cr [...] 10/18/22 Yes Eren Cr MD ostomy supplies [facility] Patient has colostomy and needs Cavilon 3M skin barrier film to manage. 09/21/19 Yes Greyson Reeves MD simvastatin (ZOCOR) 20 mg tablet Take 1 tablet (20 mg total) by mouth nightly Yes Levon Kee MD sodium chloride 0.9 % solution Infuse 1,000 mL into a venous catheter once a week Patient to [id number] of Normal Saline via CADD Coreas pump [...] post op 02/05/23 Nasim Rojas MD HYDROcodone-acetaminophen ([place]) 5-325 mg per tablet Take 1 tablet [...] Visit Medication Sig 0.9 % sodium chloride ([facility] sodium chloride 0.9%) injection Infuse 10 mL into a venous catheter once a week On saturday 0.9 % sodium chloride (sodium chloride 0.9%) 0.9% infusion ascorbic acid, vitamin C, 500 mg capsule Take 1 tablet by mouth fundraising director before breakfast cholecalciferol (VITAMIN D-3) 1,000 unit Take 1 tablet/capsule (1,000 Units total) by mouth daily (Patient taking differently: Take 1 tablet/capsule (1,000 Units total) by mouth every morning) clotrimazole-betamethasone (LOTRISONE) cream Apply 1 Application topically daily as needed (rash) coenzyme [id number] E 100-5 mg-unit capsule Take 1 tablet by mouth fundraising director before breakfast denosumab (Xgeva) 120 mg/1.7 [...] a week Fluids every -Heparin to flush [facility] cabozantinib/placebo (/[id number]) 20 mg tablet Take 1 tablet (20 mg total) bywvuth nightly Take on an empty stomach (no food for 2 hours before and 1 hour after each dose). Avoid [place]'s Wort, grapefruit products and [place] oranges while on treatment. placed on hold 09/26/22 for covid levothyroxine (SYNTHROID) 88 mcg tablet Take 1 tablet (88 mcg total) by mouth fundraising director before breakfast (Patient taking differently: Take 1 tablet (88 mcg total) by mouth fundraising director before breakfast) lidocaine-prilocaine (lidocaine-prilocaine) cream Apply [...] venous catheter once a week Patient to [id number] of Normal Saline via CADD Coreas pump [...] Billie Monson MD at 09/12/2023 4:37 PM INK JET OPERATOR JET OPERATOR JET OPERATOR Associated attestation - Billie Monson MD - 09/12/2023 4:37 PM INK JET OPERATOR I have seen and examined the patient. I agree with the findings and plan of care as documented in the resident/fellow's note. documented in this encounter Miscellaneous Notes * Addendum Note - Billie Monson MD - 09/06/2023 3:00 PM CSTAddended by: BILLIE MONSON on: 09/12/2023 04:38 PM Modules accepted: Level of Service JET OPERATOR documented in this encounter Plan of Treatment Not on file documented as of this encounter Results * (ABNORMAL) TSH (09/11/2023 9:02 AM INK JET OPERATOR) Thyroid Stimulating Hormone 4.79(H) 0.30 - 4.20 mcIUnit/mL Blood 09/11/2023 9:02 AM INK JET OPERATOR 09/11/2023 9:37 AM INK JET OPERATOR Leila Gaytan MD LAB BLOOD ORDERABLES Final R esult Performing Organization Address City/[facility] Co de Phone Number [facility] Department of [employer] [place] [address] * T4, free (09/11/2023 9:02 AM INK JET OPERATOR) [facility] Free T4 1.38 0.90 - 1.70 ng/dL Blood 09/11/2023 9:02 AM INK JET OPERATOR 09/11/2023 9:37 AM INK JET OPERATOR Leila Gaytan MD LAB BLOOD ORDERABLES Final R esult Performing Organization Address City/[facility]/ZIP Co de Phone Number [facility] [place] [address] * Cortisol (09/11/2023 9:02 AM INK JET OPERATOR) Cortisol 10.0 4.8 - 19.5 mcg/dL Comment: Interpretive Data: Morning hours 6-10 a.m. ??4.8 - 19.5 mcg/dL Afternoon hours 4-8 p.m. ??2.68 - 10.5 mcg/dL This analyte undergoes marked diurnal variation. Current interpretive data was last revised 21. Blood 09/11/2023 9:02 AM INK JET OPERATOR 09/11/2023 9:37 AM INK JET OPERATOR Narrative [facility] - 09/11/2023 10:28 AM INK JET OPERATOR 8AM cortisol us Leila Gaytan MD LAB BLOOD ORDERABLES Final R esult Performing Organization Address City/[facility]/ZIP Co de Phone Number [facility] Department [place] [address] * ACTH (09/11/2023 7:44 AM INK JET OPERATOR) Pathologist [facility] ACTH 25.8 7.0 - 63.0 pg/mL Blood 09/11/2023 7:44 AM INK JET OPERATOR 09/11/2023 9:23 AM INK JET OPERATOR Leila Gaytan MD LAB BLOOD ORDERABLES Final R esult Performing Organization Address City/[facility] Co de Phone Number [facility] Department [place] [address] documented in this encounter Visit Diagnoses Diagnosis Hypothyroidism, unspecified type- Primary High risk medication use Neuro-endocrine carcinoma (HCC) Other malignant neoplasm of unspecified site Hypothyroidism, unspecified type documented in this encounter Discontinued Medications Medication Sig Discontinue Reason Start Date End Da te levothyroxine (SYNTHROID) 88 mcg tabletIndications:Hypot hyroidism due to medication Take 1 tablet (88 mcg total) by mouth fundraising director before breakfast 10/12/2022 09/12/2023 levothyroxine (SYNTHROID) 100 mcg tabletIndications:Hypot hyroidism, unspecified type Take 1 tablet (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) by mouth daily 09/12/2023 09/12/2023 documented as of this encounter Care Teams Last Puller Relationship Specialty Start Date End Date Julio César Briseno MD PCP - General 10/01/16 Eren Cr MD Referring Physician Medical Oncology 11/25/18 Yohana Bowen MD Radiation Oncologist Radiation Oncology 11/25/18 Alejo Mi MD [address] [address] Referring Physician Nephrology 03/07/23 documented as of this encounter
--- OUTSIDE RECORDS SUMMARY | 2024-06-26 01:55 | XMS_ITS | Encounter Summary ---
Author Organization [facility] Healthcare Address [address] [place] [address] Care Team Providers Care Demonstrator Sales Name Role Phone Julio César Briseno MD Primary Care Provider [phone] Eren Cr MD Unavailable [phone] Yohana Bowen MD Unavailable Alejo Mi MD Unavailable [phone] Encounter Details Date Type Department Care Team (Latest Contact Info) Description 09/04/2023 9:57 AM FINANCIAL SYSTEMS MANAGER - 09/04/2023 11:59 PM FINANCIAL SYSTEMS MANAGER Hospital Encounter [facility] [place] [facility] ([facility]) [address] [place] [phone] Neuroendocrine carcinoma (HCC); Malignant neoplasm metastatic to [...] file Legal Sex Female 2:41 PM FINANCIAL SYSTEMS MANAGER Gender Identity Not on file Sexual [...] nightly 0.9 % sodium chloride ([facility] sodium chloride 0.9%) injectionIndicat ions:line care Infuse 10 mL into a venous catheter once a week On saturday 4 0.9 % sodium chloride (sodium chloride 0.9%) 0.9% infusion 05/22/2023 4 ascorbic acid, vitamin C, 500 mg capsuleIndicatio ns:supplement Take 1 tablet by mouth blade grinder before breakfast 07/04/2016 4 clotrimazole-bet amethasone (LOTRISONE) cream Apply 1 Application topically daily as needed (rash) 4 coenzyme I13-guojntv E 100-5 mg-unit capsuleIndicatio ns:supplement Take 1 tablet by mouth blade grinder before breakfast 4 diphenoxylate-at ropine (LOMOTIL) 2.5-0.025 [...] every -Heparin to flush 4 [facility] cabozantinib/maris cebo (08-122/A02 1602) 20 mg tabletIndication s:cancer study Take 1 tablet (20 mg total) by mouth nightly Take on an empty stomach (no food for 2 hours before and 1 hour after each dose).?? Avoid [place]'s Wort, grapefruit products and [place] oranges while on treatment. 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 73 m2 JASON [...] was last reviewed 2021. Testing performed by: [facility], [address] [place] [phone] Blood 09/04/2023 10:2 9 AM FINANCIAL SYSTEMS MANAGER 09/04/2023 10:31 AM FINANCIAL SYSTEMS MANAGER Eren Cr MD LAB BLOOD ORDERABLES Final Re sult Performing Organization Address City/[facility] Co de Phone Number [facility] Department [place] [address] * Magnesium (09/04/2023 10:29 AM FINANCIAL SYSTEMS MANAGER) Magnesium 1.6 1.4 - 2.5 mg/dL [facility] Comment:Testing performed by : [facility], [address] [place] [phone] Blood 09/04/2023 10:2 9 AM FINANCIAL SYSTEMS MANAGER 09/04/2023 10:31 AM FINANCIAL SYSTEMS MANAGER Eren Cr MD LAB BLOOD ORDERABLES Final Re sult Performing Organization Address City/[facility]/ZIP Co de Phone Number [facility] Department [place] [address] * Phosphorus (09/04/2023 10:29 AM FINANCIAL SYSTEMS MANAGER) Phosphorus, pl 4.2 2.3 - 4.5 mg/dL [facility] Comment:Testing performed by : [facility], [address] [place] [phone] Blood 09/04/2023 10:2 9 AM FINANCIAL SYSTEMS MANAGER 09/04/2023 10:31 AM FINANCIAL SYSTEMS MANAGER us Eren Cr MD LAB BLOOD ORDERABLES Final Re sult JASON BLACK [facility] Department [place] [address] * (ABNORMAL) Basic metabolic panel (09/04/2023 10:29 AM FINANCIAL SYSTEMS MANAGER) Sodium 141 135 - 145 mmol/L JASON BLACK Comment:Testing performed by : [facility], [address] [place] [phone] Potassium, pl 4.1 3.3 - 4.9 mmol/L JASON BLACK Comment:Testing performed by : [facility], [address] [place] [phone] Chloride 108 97 - 110 mmol/L JASON BLACK Comment:Testing performed by : [facility], [address] [place] [phone] CO2 26 22 - 32 mmol/L JASON BLACK Comment:Testing performed by : [facility], [address] [place] [phone] Anion gap 7 2 - 15 mmol/L JASON [facility] Comment:Testing performed by : [facility], [address] [place] [phone] BUN 14 6 - 25 mg/dL JASON BLACK Comment:Testing performed by : [facility], [address] [place] [phone] Creatinine 1.03 0.60 - 1.10 mg/dL JASON [facility] Comment:Testing performed by : [facility], [address] [place] [phone] Glucose 78 70 - 199 mg/dL JASON [facility] Comment: Interpretive Data Fasting glucose >/= [...] was last revised 2022. 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
--- OUTSIDE RECORDS SUMMARY | 2024-06-26 01:55 | XMS_ITS | Encounter Summary ---
Author Organization [facility] Address [address] [place] [address] Phone Care Team Providers Care Geophysics Professor Name Role Phone Julio César Briseno MD Primary Care Provider Eren Cr MD Unavailable [phone] Yohana Bowen MD Unavailable Alejo Mi MD Unavailable Encounter Details Date Type Department Care Team (Late st Contact Info) Description 07/25/2023 Orders Only [facility] Oncology [address] [place] [address] Yoana Murray [facility] Social History Tobacco Use [...] file Legal Sex Female 2:41 PM PRODUCE DEPARTMENT MANAGER Gender Identity Not on file Sexual Orientation Straight 02/19/2021 9: 29 AM CDT Occupation Industry Job Start Date Job End Date retired Not on file Not on file Not on file documented as of this encounter Plan of Treatment Not on file documented as of this encounter Visit Diagnoses Not on filedocumented in this encounter Care Teams Geophysics Professor Relationship Specialty Start Date End Date Julio César Briseno MD PCP - General 10/01/16 Eren Cr MD Referring Physician Medical Oncology 11/25/18 Yohana Bowen MD Radiation Oncologist Radiation Oncology 11/25/18 Alejo Mi MD [address] [address] Referring Physician Nephrology 03/07/23 documented as of this encounter
--- OUTSIDE RECORDS SUMMARY | 2024-06-26 01:55 | XMS_ITS | Encounter Summary ---
Author Organization [facility] Address [address] [place] [address] Phone Care Team Providers Care Food Safety Scientist Name Role Phone Julio César Briseno MD Primary Care Provider Eren Cr MD Unavailable [phone] Yohana Bowen MD Unavailable Alejo Mi MD Unavailable [phone] Encounter Details Date Type Department Care Team (Late st Contact Info) Description 08/07/2023 3:00 PM SPA MANAGER Infusion [facility] Oncology [address] [facility] Advanced Medicine 7th [place] [id number] Hypophosphatemia (Primary Dx); Neuroendocrine carcinoma (HCC); Malignant [...] on file Legal Sex Female 2:41 PM SPA MANAGER Gender Identity Not on file Sexual Orientation Straight 02/19/2021 9: 29 AM CDT Occupation Industry Job Start Date Job End Date retired Not on file Not on file Not on file documented as of this encounter Last Filed Vital Signs Vital Sign Reading Time Taken Comments Blood Pressure 154/70 08/07/2023 2:50 PM SPA MANAGER Pulse 101 08/07/2023 2:50 PM SPA MANAGER Temperature 36.5 ??C (97.7 ??F) 08/07/2023 2:50 PM CS T Respiratory Rate 20 08/07/2023 2:50 PM SPA MANAGER Oxygen Saturation 98% 08/07/2023 2:50 PM SPA MANAGER Inhaled Oxygen Concentration - - Weight 75.5 kg (166 lb 6.4 oz) 08/07/2023 2:50 P M SPA MANAGER Height - - Body Mass Index 29.48 06/11/2023 3:18 PM SPA MANAGER documented in this encounter Nursing Notes * Caroline Kam, [place] - 08/07/2023 3:00 PM CST Oncology Nursing Note [facility] La Chung is a 72 [...] Mode: Ambulatory Accompanied by: Discharged To: Home MANAGER documented in this encounter Plan of [...] 1 doseIndications:Hypophosph atemia Given 08/07/2023 3:24 PM SPA MANAGER 8 mg prochlorperazine (COMPAZINE) injection 5 mg 5 mg, intravenous, Administer over 2 Minutes, Once, On Sat08/07/23 at 1715, For 1 doseIndications:Neuroendoc rine carcinoma (HCC) Given 08/07/2023 4:48 PM SPA MANAGER 5 mg sodium chloride 0.9% bolus 1,000 mL 1,000 mL, intravenous, at 666.7 mL/hr, Administer over 90 Minutes, Once, On Sat08/07/23 at 1530, For 1 doseIndications:Hypophosph atemia,Dehydration,Neuro-e ndocrine carcinoma (HCC) New Bag 08/07/2023 2:59 PM SPA MANAGER 1,000 mL 666.7 mL/hr documented in this encounter Orders Appointment Requests Count Last Ordered Date Fi rst Ordered Date ONCBCN INFUSION APPT REQUEST 1 08/07/2023 documented in this encounter Care Teams Food Safety Scientist Relationship Specialty Start Date End Date Julio César Briseno MD PCP - General 10/01/16 Eren Cr MD Referring Physician Medical Oncology 11/25/18 Yohana Bowen MD Radiation Oncologist Radiation Oncology 11/25/18 Alejo Mi MD [address] [address] Referring Physician Nephrology 03/07/23 documented as of this encounter
--- OUTSIDE RECORDS SUMMARY | 2024-06-26 01:56 | XMS_ITS | Encounter Summary ---
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 [address] [facility] Advanced Medicine 7th [place] [address] Phone: tel: Referral ID Status Reason Start Date Expiration Date Visits Re quested Visits Authorized [id number] Closed 06/21/2021 06/26/2024 1 99 Encounter Details Date Type Department Care Team (Late st Contact Info) Description 06/27/2023 10:30 AM TOLL TEST WORKER Office Visit [facility] Oncology [address] [place] [address] Eren Cr MD [address] [facility] [address] [place] [address] Neuroendocrine carcinoma (HCC) (Primary Dx); Malignant neoplasm [...] on file Legal Sex Female 2:41 PM TOLL TEST WORKER Gender Identity Not on file Sexual Orientation Straight 02/19/2021 9: 29 AM CDT Occupation Industry Job Start Date Job End Date retired Not on file Not on file Not on file documented as of this encounter Last Filed Vital Signs Vital Sign Reading Time Taken Comments Blood Pressure 154/73 06/27/2023 10:23 AM TOLL TEST WORKER Pulse 74 06/27/2023 10:23 AM TOLL TEST WORKER Temperature 36.2 ??C (97.1 ??F) 06/27/2023 10:[address] Respiratory Rate 16 06/27/2023 10:23 AM TOLL TEST WORKER Oxygen Saturation 97% 06/27/2023 10:23 AM TOLL TEST WORKER Inhaled Oxygen Concentration - - Weight 79.1 kg (174 lb 6.4 oz) 06/27/2023 10:23 AM TOLL TEST WORKER Height - - Body Mass Index 30.89 06/11/2023 3:18 PM TOLL TEST WORKER documented in this encounter Progress Notes * Raymundo, Billie, AIRLINE PILOT/FIRST OFFICER - 06/27/2023 10:30 AM CST Images from [...] time, she also underwent right colectomy in [facility] [place] by Dr. Greyson Reeves. Biopsy [...] Eren Cr MD at 06/27/2023 4:47 PM TOLL TEST WORKER TEST WORKER TEST WORKER documented in this encounter Plan of Treatment Not on file documented as of this encounter Results * Magnesium (07/25/2023 9:47 AM TOLL TEST WORKER) Magnesium 1.5 1.4 - 2.5 mg/dL [facility] Comment:Testing performed by : [facility], [address] [place] [address] Blood 07/25/2023 9:47 AM TOLL TEST WORKER 07/25/2023 9:49 AM TOLL TEST WORKER us Eren Cr MD LAB BLOOD ORDERABLES Final Re sult [facility] Department [place] [address] * (ABNORMAL) Chromogranin A (07/25/2023 9:47 AM TOLL TEST WORKER) Chromogranin A 1971(H) <93 ng/mL [facility] Comment: Impaired renal or hepatic function or [...] a homogeneous time-resolved immunofluorescent assay manufactured by [employer] and performed on the [employer] Kryptor Compact Plus. ? Values obtained with different assay methods or kits may be different and cannot be used interchangeably. ? Test results cannot be interpreted as absolute evidence for the presence or absence of malignant disease. Test Performed by: [place] [address] Manager Applied: Immanuel Novak M.D. Ph.D.; CLIA# [id number] Blood 07/25/2023 9:47 AM TOLL TEST WORKER 07/25/2023 10:40 AM TOLL TEST WORKER us Eren Cr MD LAB BLOOD ORDERABLES Final Re sult [facility] Department [place] [address] * (ABNORMAL) Comprehensive metabolic panel (07/25/2023 9:47 AM TOLL TEST WORKER) Sodium 137 135 - 145 mmol/L [facility] Comment:Testing performed by : [facility], [address] [place] [address] Potassium, pl 4.3 3.3 - 4.9 mmol/L [facility] Chloride 107 97 - 110 mmol/L [facility] CO2 27 22 - 32 mmol/L [facility] Anion gap 3 2 - 15 mmol/L [facility] BUN 14 6 - 25 mg/dL [facility] Creatinine 1.40(H) 0.60 - 1.10 mg/dL [facility] Glucose 113 70 - 199 mg/dL [facility] [...] Calcium 10.3 8.5 - 10.3 mg/dL [facility] Bilirubin, total 0.7 0.1 - 1.2 mg/dL [facility] Protein, pl 6.4(L) 6.5 - 8.5 g/dL [facility] Albumin 4.1 3.5 - 5.0 g/dL [facility] Alk phos 66 40 - 130 Units/L [facility] ALT 22 7 - 45 Units/L [facility] AST 35 10 - 45 Units/L [facility] Blood 07/25/2023 9:47 AM TOLL TEST WORKER 07/25/2023 9:49 AM TOLL TEST WORKER Eren Cr MD LAB BLOOD ORDERABLES Final Re sult Performing Organization Address City/[facility]/ZIP Co de Phone Number [facility] One [facility] [place] [address] * (ABNORMAL) CBC with auto differential (07/25/2023 9:47 AM TOLL TEST WORKER) WBC 3.1(L) 3.8 - 9.9 K/cumm [facility] Comment:Testing performed by : [address] [address] Hgb 11.8(L) 11.9 - 15.5 g/dL [facility] Comment:Testing performed by : [address] [address] Hct 35.5(L) 35.6 - 45.5 % [facility] Comment:Testing performed by : [address] [address] Plt 84(L) 150 - 400 K/cumm [facility] Comment:Testing performed by : [address] [address] MPV 10.3 9.1 - 12.3 fL [facility] RBC 3.66(L) 3.90 - 5.20 M/cumm [facility] MCV 97.0(H) 81.3 - 96.4 fL [facility] MCH 32.2 27.1 - 33.3 pg [facility] MCHC 33.2 32.3 - 35.7 g/dL [facility] RDW CV 14.2 11.1 - 14.9 % [facility] RDW SD 49.9(H) 35.7 - 48.1 fL [facility] NRBC abs 0.00 0.00 - 0.01 K/cumm [facility] Blood 07/25/2023 9:47 AM TOLL TEST WORKER 07/25/2023 9:49 AM TOLL TEST WORKER Eren Cr MD LAB BLOOD ORDERABLES Final Re sult [facility] [place] [address] * (ABNORMAL) Vitamin D 25 hydroxy (07/25/2023 9:47 AM TOLL TEST WORKER) Pathologist [facility] Vitamin D 25-OH 22(L) 30 - 80 ng/mL [facility] Blood 07/25/2023 9:47 AM TOLL TEST WORKER 07/25/2023 10:37 AM TOLL TEST WORKER Eren Cr MD LAB BLOOD ORDERABLES Final Re sult Performing Organization Address [facility] [place] [address] * Phosphorus (07/25/2023 9:47 AM TOLL TEST WORKER) [facility] Phosphorus, pl 3.4 2.3 - 4.5 mg/dL [facility] Comment:Testing performed by : [facility], [address] [place] [address] Blood 07/25/2023 9:47 AM TOLL TEST WORKER 07/25/2023 9:49 AM TOLL TEST WORKER Eren Cr MD LAB BLOOD ORDERABLES Final Re sult Performing Organization Address [facility] [place] [address] * Lipid panel (07/25/2023 9:47 AM TOLL TEST WORKER) [facility] Cholesterol 138 30 - 199 mg/dL [facility] Comment: Interpretive Data Ages < [...] revised on 2018. Triglycerides 108 <=149 mg/dL [facility] Comment: Interpretive Data Ages < [...] revised on 2018. HDL 50 >=40 mg/dL [facility] Comment: Interpretive Data Ages < [...] on 2018. LDL, calculated 66 <=129 mg/dL [facility] Comment: Interpretive Data Ages < [...] revised on 2018. Non-HDL Cholesterol 88 mg/dL [facility] Comment: Interpretive Data Ages < [...] last revised on 2018. Chol/HDL ratio 3 [facility] Blood 07/25/2023 9:47 AM TOLL TEST WORKER 07/25/2023 10:37 AM TOLL TEST WORKER us Eren Cr MD LAB BLOOD ORDERABLES Final Re sult [facility] Department [place] [address] documented in this encounter Visit Diagnoses Diagnosis [...] 24 documented in this encounter Care Teams Auto Radio Mechanic Relationship Specialty Start Date End Date Julio César Briseno MD PCP - General 10/01/16 Eren Cr MD Referring Physician Medical Oncology 11/25/18 Yohana Bowen MD Radiation Oncologist Radiation Oncology 11/25/18 Alejo Mi MD [address] [address] Referring Physician Nephrology 03/07/23 documented as of this encounter
--- OUTSIDE RECORDS SUMMARY | 2024-06-26 01:56 | XMS_ITS | Encounter Summary ---
Author Organization [facility] Address [address] [place] [address] Care Team Providers Care Transitional Living Specialist Name Role Phone Julio César Briseno MD Primary Care Provider [phone] Eren Cr MD Unavailable [phone] Yohana Bowen MD Unavailable Alejo Mi MD Unavailable [phone] Encounter Details Date Type Department Care Team (Late st Contact Info) Description 06/12/2023 10:00 AM HEEL TURNER Home Care Visit [facility] [place] [address] [address] [place] [id number] Willem Sung, RN SN HOME VISIT Social [...] file Legal Sex Female 2:41 PM HEEL TURNER Gender Identity Not on file Sexual Orientation Straight 02/19/2021 9: 29 AM CDT Occupation Industry Job Start Date Job End Date retired Not on file Not on file Not on file documented as of this encounter Last Filed Vital Signs Vital Sign Reading Time Taken Comments Blood Pressure 136/66 06/12/2023 9:35 AM HEEL TURNER Pulse 86 06/12/2023 9:35 AM HEEL TURNER Temperature 36.3 ??C (97.3 ??F) 06/12/2023 9:35 AM CS T Respiratory Rate 16 06/12/2023 9:35 AM HEEL TURNER Oxygen Saturation 100% 06/12/2023 9:35 AM HEEL TURNER Inhaled Oxygen Concentration - - Weight - - Height - - Body Mass Index - - documented in this encounter Miscellaneous Notes * Home Health Plan for Next Visit - Willem Sung RN - 06/12/2023 9:22 AM CST Reason for today's visit: Assess, port access. Discuss plan of care with patient/caregiver. Discharge planning ongoing. Plan for next visit: Assess, access port. TURNER documented in this encounter Plan of Treatment [...] Saturday, Indications: hydrationIndications:hydration Given 06/12/2023 9:46 AM HEEL TURNER 1,000 mL Given 06/12/2023 9:45 AM HEEL TURNER 1,000 mL documented in this encounter Home Health Visit - Care Plan Visit Details Visit Type -SN Home Visit Discipline -Penitentiary Problems Problem Description Start Date Status Goals Interventions Medications Disciplines: Penitentiary Management of IV Medications 05/08/2023 Active - 2 problem interventions scheduled/documen omar in this visit Safety concerns Disciplines: Penitentiary Safety needs related to infusion administration 05/08/2023 Active - 1 problem intervention scheduled/documen omar in this visit Learning/Teachin g Needs - IV Therapy Disciplines: Penitentiary Teaching and learning needs for performing home IV therapy 05/08/2023 Active - 7 problem interventions scheduled/documen omar in this visit Monitor patient's vital signs every home health visit Disciplines: SN, PT, OT, SHELF DRIER OPERATOR, CHECKROOM ATTENDANT, Skilled Disciplines Monitor patient's vital signs [...] visit during episode of care Description: Home refractory grinder operator to measure vital signs during every [...] Scheduled documented in this encounter Care Teams Transitional Living Specialist Relationship Specialty Start Date End Date Julio César Briseno MD PCP - General 10/01/16 Eren Cr MD Referring Physician Medical Oncology 11/25/18 Yohana Bowen MD Radiation Oncologist Radiation Oncology 11/25/18 Alejo Mi MD [address] [address] Referring Physician Nephrology 03/07/23 documented as of this encounter
--- OUTSIDE RECORDS SUMMARY | 2024-06-26 01:56 | XMS_ITS | Encounter Summary ---
Author Organization [facility] Address [address] [place] [address] Phone Care Team Providers Care Area Intelligence Technician Name Role Phone Julio César Briseno MD Primary Care Provider Eren Cr MD Unavailable [phone] Yohana Bowen MD Unavailable Alejo Mi MD Unavailable [phone] Encounter Details Date Type Department Care Team (Late st Contact Info) Description 06/19/2023 2:30 PM VIBRATION TECHNICIAN Infusion [facility] Oncology [address] [facility] Advanced Medicine 7th [place] [address] Dehydration (Primary Dx); Neuroendocrine carcinoma [...] on file Legal Sex Female 2:41 PM VIBRATION TECHNICIAN Gender Identity Not on file Sexual Orientation Straight 02/19/2021 9: 29 AM CDT Occupation Industry Job Start Date Job End Date retired Not on file Not on file Not on file documented as of this encounter Last Filed Vital Signs Vital Sign Reading Time Taken Comments Blood Pressure 142/80 06/19/2023 2:31 PM VIBRATION TECHNICIAN Pulse 80 06/19/2023 2:31 PM VIBRATION TECHNICIAN Temperature 36.7 ??C (98 ??F) 06/19/2023 2:31 PM VIBRATION TECHNICIAN Respiratory Rate 16 06/19/2023 2:31 PM VIBRATION TECHNICIAN Oxygen Saturation 96% 06/19/2023 2:31 PM VIBRATION TECHNICIAN Inhaled Oxygen Concentration - - Weight 79 kg (174 lb 2.6 oz) 06/19/2023 2:31 PM VIBRATION TECHNICIAN Height - - Body Mass Index 30.85 06/11/2023 3:18 PM VIBRATION TECHNICIAN documented in this encounter Nursing Notes * Callie Yepez RN - 06/19/2023 2:30 PM CST Pt presents for fluids, Port accessed in pod with positive blood return, 1L NS infused over 2 hours, tolerated well. Port de accessed and band aid placed over port site and pt D/C in stable condition. ATION TECHNICIAN documented in this encounter Plan of [...] carcinoma (HCC),Dehydration New Bag 06/19/2023 2:53 PM VIBRATION TECHNICIAN 1,000 mL 500 mL/hr documented in this encounter Orders Medications Ordered That Brett ht Not Have Been Administered Count Last Ordered Date First Ordered Date sodium chloride 0.9% bolus 1,000 mL 2 06/19 Appointment Requests Count Last Ordered Date Fi rst Ordered Date ONCBCN INFUSION APPT REQUEST 1 06/19/2023 documented in this encounter Care Teams Area Intelligence Technician Relationship Specialty Start Date End Date Julio César Briseno MD PCP - General 10/01/16 Eren Cr MD Referring Physician Medical Oncology 11/25/18 Yohana Bowen MD Radiation Oncologist Radiation Oncology 11/25/18 Alejo Mi MD [address] [address] Referring Physician Nephrology 03/07/23 documented as of this encounter
--- OUTSIDE RECORDS SUMMARY | 2024-06-26 01:56 | XMS_ITS | Encounter Summary ---
Author Organization [facility] Address [address] [place] [address] Phone Care Team Providers Care Business Continuity Consultant Name Role Phone Julio César Briseno MD Primary Care Provider [phone] Eren Cr MD Unavailable [phone] Yohana Bowen MD Unavailable [place]Alejo Ramos MD Unavailable [phone] Reason for Visit * Episode Based Medications (Routine) - Closed Specialty Diagnoses / Procedures Referred By Contac t Referred To Contact Diagnoses Neuro-endocrine carcinoma (HCC) Procedures study [id number] phase III cabozantinib Eren Cr MD [address] [place] [address] Phone: tel: fax: [facility] at [facility] [address] [facility] Advanced [facility] 7th [place] [address] Phone: tel: Referral ID Status Reason Start Date Expiration Date Visits Re quested Visits Authorized [id number] Closed 06/21/2021 06/26/2024 1 99 Encounter Details Date Type Department Care Team (Latest Contact Info) Description 06/27/2023 11:30 AM DISTANCE EDUCATION FACULTY LIAISON Research Med Pick-Up/CTRU Retail Advertising Sales Manager [facility] Oncology [address] [place] [address] Neuro-endocrine carcinoma (HCC) (Primary Dx) Social History [...] on file Legal Sex Female 2:41 PM DISTANCE EDUCATION FACULTY LIAISON Gender Identity Not on file Sexual [...] Ordered Date First Ordered Date [id number] cabozantinib (08-122/[id number]) tablet 20 mg 1 06/27/2023 Nursing Count [...] 06/27/20 documented in this encounter Care Teams Business Continuity Consultant Relationship Specialty Start Date End Date Julio César Briseno MD PCP - General 10/01/16 Eren Cr MD Referring Physician Medical Oncology 11/25/18 Yohana Bowen MD Radiation Oncologist Radiation Oncology 11/25/18 Alejo Mi MD [address] [address] Referring Physician Nephrology 03/07/23 documented as of this encounter
--- OUTSIDE RECORDS SUMMARY | 2024-06-26 01:56 | XMS_ITS | Encounter Summary ---
Author Organization [facility] Address [address] [place] [address] Phone Care Team Providers Care Tapper Shank Name Role Phone Julio César Briseno MD Primary Care Provider [phone] Eren Cr MD Unavailable [phone] Yohana Bowen MD Unavailable Alejo Mi MD Unavailable [phone] Reason for Visit * Reason Comments OP Infusion Encounter Details Date Type Department Care Team (Late st Contact Info) Description 07/10/2023 3:00 PM BI TRI OPERATOR Infusion [facility] Oncology [address] [facility] Advanced Medicine 7th [place] [address] Dehydration (Primary Dx); Neuroendocrine carcinoma [...] on file Legal Sex Female 2:41 PM BI TRI OPERATOR Gender Identity Not on file Sexual Orientation Straight 02/19/2021 9: 29 AM CDT Occupation Industry Job Start Date Job End Date retired Not on file Not on file Not on file documented as of this encounter Last Filed Vital Signs Vital Sign Reading Time Taken Comments Blood Pressure 120/69 07/10/2023 3:56 PM BI TRI OPERATOR Pulse 97 07/10/2023 3:56 PM BI TRI OPERATOR Temperature 36.5 ??C (97.7 ??F) 07/10/2023 3:56 PM CS T Respiratory Rate - - Oxygen Saturation 97% 07/10/2023 3:56 PM BI TRI OPERATOR Inhaled Oxygen Concentration - - Weight 76.7 kg (169 lb 3.2 oz) 07/10/2023 3:56 P M BI TRI OPERATOR Height - - Body Mass Index 29.97 06/11/2023 3:18 PM BI TRI OPERATOR documented in this encounter Nursing Notes * Brianda Hughes, [place] - 07/10/2023 3:00 PM CST Oncology Nursing Note [facility] La [...] Ambulatory Accompanied by: Spouse Discharged To: Home TRI OPERATOR documented in this encounter Plan of [...] carcinoma (HCC) New Bag 07/10/2023 4:05 PM BI TRI OPERATOR 1,000 mL 666.7 mL/hr documented in this encounter Orders Medications Ordered That Brett ht Not Have Been Administered Count Last Ordered Date First Ordered Date sodium chloride 0.9% bolus 1,000 mL 1 07/10 Appointment Requests Count Last Ordered Date Fi rst Ordered Date ONCBCN INFUSION APPT REQUEST 1 07/10/2023 documented in this encounter Care Teams Tapper Shank Relationship Specialty Start Date End Date Julio César Briseno MD PCP - General 10/01/16 rEen Cr MD Referring Physician Medical Oncology 11/25/18 Yohana Bowen MD Radiation Oncologist Radiation Oncology 11/25/18 Alejo Mi MD [address] [place] [address] Referring Physician Nephrology 03/07/23 documented as of this encounter
--- OUTSIDE RECORDS SUMMARY | 2024-06-26 01:56 | XMS_ITS | Encounter Summary ---
Author Organization [facility] Address [address] [place] [address] Phone Care Team Providers Care Functional Tester Name Role Phone Julio César Briseno MD Primary Care Provider Eren Cr MD Unavailable [phone] Yohana Bowen MD Unavailable Alejo Mi MD Unavailable [phone] Encounter Details Date Type Department Care Team (Late st Contact Info) Description 06/27/2023 Telephone [facility] Oncology [address] [place] [address] Callie Hancock Social History Tobacco Use Types [...] file Legal Sex Female 2:41 PM COTTON STOMPER Gender Identity Not on file Sexual Orientation Straight 02/19/2021 9: 29 AM CDT Occupation Industry Job Start Date Job End Date retired Not on file Not on file Not on file documented as of this encounter Miscellaneous Notes * Telephone Encounter - Callie Hancock - 06/27/2023 11:21 AM CST Spoke with pt to inform of appts scheduled at [facility] on 07/25/22 labs at 9:30 am, ROV at 10 am, Injection and Pharmacy visit following. I let pt know that she will be able to see appt date and times on her mychart as well. ON STOMPER documented in this encounter Plan of Treatment Not on file documented as of this encounter Visit Diagnoses Not on filedocumented in this encounter Care Teams Functional Tester Relationship Specialty Start Date End Date Julio César Briseno MD PCP - General 10/01/16 Eren Cr MD Referring Physician Medical Oncology 11/25/18 Yohana Bowen MD Radiation Oncologist Radiation Oncology 11/25/18 Alejo Mi MD [address] [address] Referring Physician Nephrology 03/07/23 documented as of this encounter
--- OUTSIDE RECORDS SUMMARY | 2024-06-26 01:56 | XMS_ITS | Encounter Summary ---
Author Organization 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) Procedures CT chest abdomen pelvis with contrast Eren Cr MD [address] [facility] [address] [place] [address] Phone: tel: fax: [address] [phone] Referral ID Status Reason Start Date Expiration Date Visits Re quested Visits Authorized [id number] Closed 07/17/2023 08/15/2024 1 1 LER CHEF OR COOK Encounter Details Date Type Department Care Team (Late st Contact Info) Description 07/17/2023 Orders Only [facility] Oncology [address] [place] [address] Eren Cr MD [address] [facility] [address] [place] [address] Neuroendocrine carcinoma (HCC) (Primary Dx); Malignant neoplasm [...] on file Legal Sex Female 2:41 PM BROILER CHEF OR COOK Gender Identity Not on file Sexual Orientation Straight 02/19/2021 9: 29 AM CDT Occupation Industry Job Start Date Job End Date retired Not on file Not on file Not on file documented as of this encounter Plan of Treatment Not on file documented as of this encounter Results * CT chest abdomen pelvis with contrast (08/16/2023 11:22 AM BROILER CHEF OR COOK) Anatomical Region Laterality Modality Body N/A Computed Tomogra phy 08/16/2023 12:3 0 PM BROILER CHEF OR COOK Impressions 08/16/2023 12:30 PM BROILER CHEF OR COOK 1. ??Largely stable hepatic, peritoneal, and omental metastases with the exception of one hepatic segment 4A/8 lesion which appears minimally increased in size compared to prior examination. 2. ??Stable mildly prominent right subclavicular and retroperitoneal lymph nodes. Electronically signed by: Shawn Saldaña M.D. Narrative 08/16/2023 12:30 PM BROILER CHEF OR COOK EXAMINATION: ??Computed tomography of the chest, abdomen [...] (HCC) documented in this encounter Care Teams Education Department Registrar Relationship Specialty Start Date End Date Julio César Briseno MD PCP - General 10/01/16 Eren Cr MD Referring Physician Medical Oncology 11/25/18 Yohana Bowen MD Radiation Oncologist Radiation Oncology 11/25/18 Alejo Mi MD [address] [address] Referring Physician Nephrology 03/07/23 documented as of this encounter
--- OUTSIDE RECORDS SUMMARY | 2024-06-26 01:56 | XMS_ITS | Encounter Summary ---
Author Organization [facility] Address [address] [place] [address] Phone Care Team Providers Care Business Travel Consultant Name Role Phone Julio César Briseno MD Primary Care Provider [phone] Eren Cr MD Unavailable [phone] Yohana Bowen MD Unavailable Alejo Mi MD Unavailable [phone] Encounter Details Date Type Department Care Team (Late st Contact Info) Description 06/18/2023 Orders Only [facility] Oncology [address] [place] [address] Eren Cr MD [address] [place] [address] Social History Tobacco Use Types Packs/Day Years [...] on file Legal Sex Female 2:41 PM SILK SPOOLER Gender Identity Not on file Sexual Orientation Straight 02/19/2021 9: 29 AM CDT Occupation Industry Job Start Date Job End Date retired Not on file Not on file Not on file documented as of this encounter Plan of Treatment Not on file documented as of this encounter Visit Diagnoses Not on filedocumented in this encounter Care Teams Business Travel Consultant Relationship Specialty Start Date End Date Julio César Briseno MD PCP - General 10/01/16 Eren Cr MD Referring Physician Medical Oncology 11/25/18 Yohana Bowen MD Radiation Oncologist Radiation Oncology 11/25/18 Alejo Mi MD [address] [place] [address] Referring Physician Nephrology 03/07/23 documented as of this encounter
--- OUTSIDE RECORDS SUMMARY | 2024-06-26 01:56 | XMS_ITS | Encounter Summary ---
Author Organization [facility] Address [address] [place] [address] Care Team Providers Care Facilities Maintenance Manager Name Role Phone Julio César Briseno MD Primary Care Provider [phone] Eren Cr MD Unavailable Yohana Bowen MD Unavailable Alejo Mi MD Unavailable [phone] Encounter Details Date Type Department Care Team (Late st Contact Info) Description 06/19/2023 Home Care Visit [facility] [address] [address] [address] [place] [address] Luciano Howard RN SN VIRTUAL NON OASIS [...] file Legal Sex Female 2:41 PM SILK SCREENER Gender Identity Not on file Sexual Orientation [...] Type -SN Virtual Non-O ASIS Discharge Discipline -Correction Problems Problem Description Start Date Status Goals Interventions Medications Disciplines: Correction Management of IV Medications 05/08/2023 Active - 1 problem intervention scheduled/documen omar in this visit Safety concerns Disciplines: Correction Safety needs related to infusion administration 05/08/2023 Active - 1 problem intervention scheduled/documen omar in this visit Learning/Teachin g Needs - IV Therapy Disciplines: Correction Teaching and learning needs for performing home IV therapy 05/08/2023 Active - 6 problem interventions scheduled/documen omar in this visit Monitor patient's vital signs every home health visit Disciplines: SN, PT, OT, LAB AIDE, BREAD SLICER MACHINE, Skilled Disciplines Monitor patient's vital signs every [...] visit during episode of care Description: Home finance professor to measure vital signs during every home [...] Scheduled documented in this encounter Care Teams Facilities Maintenance Manager Relationship Specialty Start Date End Date Julio César Briseno MD PCP - General 10/01/16 Eren Cr MD Referring Physician Medical Oncology 11/25/18 Yohana Bowen MD Radiation Oncologist Radiation Oncology 11/25/18 Alejo Mi MD [address] [facility] [address] [place] [address] Referring Physician Nephrology 03/07/23 documented as of this encounter
--- OUTSIDE RECORDS SUMMARY | 2024-06-26 01:56 | XMS_ITS | Encounter Summary ---
Author Organization [facility] Address [address] [place] [address] Phone Care Team Providers Care Pet Care Technician Name Role Phone Julio César Briseno MD Primary Care Provider [phone] Eren Cr MD Unavailable [phone] Yohana Bowen MD Unavailable Alejo Mi MD Unavailable [phone] Reason for Visit * Reason Comments Injections Encounter Details Date Type Department Care Team (Late st Contact Info) Description 06/27/2023 11:00 AM NURSING TEACHER Infusion [facility] Oncology [address] [place] [address] Social History Tobacco Use Types Packs/Day Years [...] on file Legal Sex Female 2:41 PM NURSING TEACHER Gender Identity Not on file Sexual Orientation Straight 02/19/2021 9: 29 AM CDT Occupation Industry Job Start Date Job End Date retired Not on file Not on file Not on file documented as of this encounter Plan of Treatment Not on file documented as of this encounter Visit Diagnoses Not on filedocumented in this encounter Care Teams Pet Care Technician Relationship Specialty Start Date End Date Julio César Briseno MD PCP - General 10/01/16 Eren Cr MD Referring Physician Medical Oncology 11/25/18 Yohana Bowen MD Radiation Oncologist Radiation Oncology 11/25/18 Alejo Mi MD [address] [address] Referring Physician Nephrology 03/07/23 documented as of this encounter
--- OUTSIDE RECORDS SUMMARY | 2024-06-26 01:56 | XMS_ITS | Encounter Summary ---
Author Organization [facility] Address [address] [place] [address] Care Team Providers Care Frame Operator Name Role Phone Julio César Briseno MD Primary Care Provider [phone] Eren Cr MD Unavailable [phone] Yohana Bowen MD Unavailable Alejo Mi MD Unavailable [phone] Encounter Details Date Type Department Care Team (Late st Contact Info) Description 06/05/2023 8:30 AM PRESIDENT COMMERCIAL BANK Home Care Visit [facility] [address] [address] [address] [place] [address] Yo Santiago, [place] SN HOME VISIT Social [...] on file Legal Sex Female 2:41 PM PRESIDENT COMMERCIAL BANK Gender Identity Not on file Sexual Orientation Straight 02/19/2021 9: 29 AM CDT Occupation Industry Job Start Date Job End Date retired Not on file Not on file Not on file documented as of this encounter Last Filed Vital Signs Vital Sign Reading Time Taken Comments Blood Pressure 132/62 06/05/2023 1:55 PM [employer]IDENT [employer] Pulse 80 06/05/2023 1:55 PM [employer]IDENT [employer] Temperature 36.3 ??C (97.4 ??F) 06/05/2023 1:55 PM CS T Respiratory Rate 20 06/05/2023 1:55 PM [employer] Oxygen Saturation 97% 06/05/2023 1:55 PM [employer]IDENT [employer] Inhaled Oxygen Concentration - - Weight - - Height 160 cm (5' 3 ) 06/05/2023 1:55 PM [employer] Body Mass Index - - documented in this encounter Miscellaneous Notes * Home Health Visit Narrative - Yo Santiago RN - 06/05/2023 12:00 AM PRESIDENT COMM[employer]ANK Patient Covid screen performed prior to arrival. [...] MD if complications occur. Patient verbalizes understanding. [employer] documented in this encounter Plan of Treatment Not on file documented as of this encounter Visit Diagnoses Not on filedocumented in this encounter Administered Medications Inactive Administered Medications - up to 3 most recent administrations Medication Order MAR Action Action Date Dose Rate Site 0.9 % sodium chloride ([facility] sodium chloride 0.9%) injection 10 mL, intravenous, Weekly, First dose on Lydia 06/06/23 at 1445, On saturday, Indications: line careIndications:line care Given 06/05/2023 1:18 PM PRESIDENT COMMERCIAL BANK 10 mL Port sodium chloride 0.9 % solution 1,000 mL, intravenous, Weekly, First dose on Lydia 06/06/23 at 1445, Patient to infuse 1000mL of Normal Saline via CADD Coreas pump set at 300mL/Hr once weekly.- Saturday, Indications: hydrationIndications:hydration Given 06/05/2023 1:18 PM [employer] 1,000 mL Port documented in this encounter Home Health Visit - Care Plan Visit Details Visit Type -SN Home Visit Discipline -Longterm Problems Problem Description Start Date Status Goals Interventions Medications Disciplines: Longterm Management of IV Medications 05/08/2023 Active - 1 problem intervention scheduled/documen omar in this visit Safety concerns Disciplines: Longterm Safety needs related to infusion administration 05/08/2023 Active - 1 problem intervention scheduled/documen omar in this visit Learning/Teachin g Needs - IV Therapy Disciplines: Longterm Teaching and learning needs for performing home IV therapy 05/08/2023 Active - 7 problem interventions scheduled/documen omar in this visit Monitor patient's vital signs every home health visit Disciplines: SN, PT, OT, ACADEMIC SPECIALIST, MEAT GRADING MACHINE OPERATOR, Skilled Disciplines Monitor patient's vital [...] visit during episode of care Description: Home account supervisor to measure vital signs during every [...] Completed Patient instructed on frequent/proper hand-washing techniques, [place] precautions, avoid crowds and persons with known [...] Scheduled documented in this encounter Care Teams Frame Operator Relationship Specialty Start Date End Date Julio César Briseno MD PCP - General 10/01/16 Eren Cr MD Referring Physician Medical Oncology 11/25/18 Yohana Bowen MD Radiation Oncologist Radiation Oncology 11/25/18 Alejo Mi MD [address] [place] [address] Referring Physician Nephrology 03/07/23 documented as of this encounter
--- OUTSIDE RECORDS SUMMARY | 2024-06-26 01:56 | XMS_ITS | Encounter Summary ---
Author Organization [facility] Address [address] [place] [address] Phone Care Team Providers Care Seasonal Retail Merchandiser Name Role Phone Julio César Briseno MD Primary Care Provider Eren Cr MD Unavailable [phone] Yohana Bowen MD Unavailable Alejo Mi MD Unavailable Encounter Details Date Type Department Care Team (Late st Contact Info) Description 05/28/2023 Orders Only [facility] Oncology [address] [place] [address] Eren Cr MD [address] [place] [address] Hematuria, unspecified type (Primary Dx); Hypothyroidism due [...] on file Legal Sex Female 2:41 PM EXTRACTOR OPERATOR HELPER Gender Identity Not on file Sexual Orientation Straight 02/19/2021 9: 29 AM CDT Occupation Industry Job Start Date Job End Date retired Not on file Not on file Not on file documented as of this encounter Plan of Treatment Not on file documented as of this encounter Results * Urinalysis reflex to microscopic and culture Urine, clean voided (05/28/2023 2:00 PM EXTRACTOR OPERATOR HELPER) Color, ur Yellow Yellow [facility] Clarity, ur Clear Clear [facility] Specific gravity, ur 1.021 1.003 - 1.030 [facility] pH, urine 5.5 [facility] Comment: Interpretive Data ? Urine pH is affected by diet, medications, systemic acid-base disturbances, and renal tubular function. ??pH may affect urinary stone formation. ??For example, urine pH below 6.0 may help reduce the tendency for calcium phosphate stones and pH greater than 6.0 may reduce the tendency for uric acid stone formation. Source: [address] Current Interpretive Data was last revised on 2017 Protein, ur ql Trace Negative [facility] Glucose, ur ql Negative Negative [facility] Ketones, ur Negative Negative [facility] Bilirubin, ur Negative Negative [facility] Blood, ur Negative Negative [facility] Urobilinogen, ur <2.0 <2.0 mg/dL [facility] Nitrite, ur Negative Negative [facility] Leukocyte esterase, ur Negative Negative [facility] UA reflex comment Reflex conditions for microscopic UA and culture not met. [facility] Urine, clean voided 05/28/2023 2:00 PM EXTRACTOR OPERATOR HELPER 05/28/2023 3:43 PM EXTRACTOR OPERATOR HELPER Eren Cr MD LAB MICROBIOLOGY - GENERAL OR DERABLES Final Result [facility] Department of Laboratories [place], [place] [id number] documented in this encounter Visit Diagnoses Diagnosis Hematuria, unspecified type- Primary Hypothyroidism due to medication CINV (chemotherapy-induced nausea and vomiting) documented in this encounter Care Teams Seasonal Retail Merchandiser Relationship Specialty Start Date End Date Julio César Briseno MD PCP - General 10/01/16 Eren Cr MD Referring Physician Medical Oncology 11/25/18 Yohana Bowen MD Radiation Oncologist Radiation Oncology 11/25/18 Alejo Mi MD [address] [place] [address] Referring Physician Nephrology 03/07/23 documented as of this encounter
--- OUTSIDE RECORDS SUMMARY | 2024-06-26 01:56 | XMS_ITS | Encounter Summary ---
Author Organization [facility] Address [address] [place] [address] Phone Care Team Providers Care Automobile Radio Repairer Name Role Phone Julio César Briseno MD Primary Care Provider Eren Cr MD Unavailable Yohana Bowen MD Unavailable Alejo Mi MD Unavailable [phone] Reason for Visit * Reason Comments OP Infusion Encounter Details Date Type Department Care Team (Late st Contact Info) Description 05/28/2023 1:45 PM FISH HATCHERY WORKER Infusion [facility] Oncology [address] [place] [address] Neuroendocrine carcinoma (HCC) Social History Tobacco Use [...] on file Legal Sex Female 2:41 PM FISH HATCHERY WORKER Gender Identity Not on file [...] 05/28/2023 documented in this encounter Care Teams Automobile Radio Repairer Relationship Specialty Start Date End Date Julio César Briseno MD PCP - General 10/01/16 rEen Cr MD Referring Physician Medical Oncology 11/25/18 Yohana Bowen MD Radiation Oncologist Radiation Oncology 11/25/18 Alejo Mi MD [address] [place] [address] Referring Physician Nephrology 03/07/23 documented as of this encounter
--- OUTSIDE RECORDS SUMMARY | 2024-06-26 01:56 | XMS_ITS | Encounter Summary ---
Author Organization [facility] Address [address] [place] [address] Phone Care Team Providers Care Manager Demand Name Role Phone Julio César Briseno MD Primary Care Provider Eren Cr MD Unavailable [phone] Yohana Bowen MD Unavailable Alejo Mi MD Unavailable [phone] Encounter Details Date Type Department Care Team (Late st Contact Info) Description 06/17/2023 Orders Only [facility] Oncology [address] [place] [address] Eren Cr MD [address] [place] [address] Neuroendocrine carcinoma (HCC) (Primary Dx); Malignant neoplasm [...] on file Legal Sex Female 2:41 PM APPLICATOR SPRAYER Gender Identity Not on file Sexual [...] 06/19/2023 documented in this encounter Care Teams Manager Demand Relationship Specialty Start Date End Date Julio César Briseno MD PCP - General 10/01/16 Eren Cr MD Referring Physician Medical Oncology 11/25/18 Yohana Bowen MD Radiation Oncologist Radiation Oncology 11/25/18 Alejo Mi MD [address] [address] Referring Physician Nephrology 03/07/23 documented as of this encounter
--- OUTSIDE RECORDS SUMMARY | 2024-06-26 01:56 | XMS_ITS | Encounter Summary ---
Author Organization [facility] Address [address] [place] [address] Phone Care Team Providers Care Composite Laminator Name Role Phone Julio César Briseno MD Primary Care Provider [phone] Eren Cr MD Unavailable [phone] Yohana Bowen MD Unavailable [place] MD Unavailable [phone] Reason for Visit * Episode Based Medications (Routine) - Closed Specialty Diagnoses / Procedures Referred By Contac t Referred To Contact Diagnoses Neuro-endocrine carcinoma (HCC) Procedures study [id number] phase III cabozantinib Eren Cr MD [address] [place] [address] Phone: tel: fax: [facility] [address] [facility] 7th [place] [address] Phone: tel: Referral ID Status Reason Start Date Expiration Date Visits Re quested Visits Authorized [id number] Closed 06/21/2021 06/26/2024 1 99 Encounter Details Date Type Department Care Team (Latest Contact Info) Description 05/28/2023 12:00 PM INFORMATION TECHNOLOGY TEACHER Research Med Pick-Up/CTRU Prosthetic Aides Teacher [facility] Oncology [address] [place] [address] Neuro-endocrine carcinoma (HCC) Social History Tobacco Use [...] on file Legal Sex Female 2:41 PM INFORMATION TECHNOLOGY TEACHER Gender Identity Not on file [...] 23 documented in this encounter Care Teams Composite Laminator Relationship Specialty Start Date End Date Julio César Briseno MD PCP - General 10/01/16 Eren Cr MD Referring Physician Medical Oncology 11/25/18 Yohana Bowen MD Radiation Oncologist Radiation Oncology 11/25/18 Alejo Mi MD [address] [place] [address] Referring Physician Nephrology 03/07/23 documented as of this encounter
--- OUTSIDE RECORDS SUMMARY | 2024-06-26 01:56 | XMS_ITS | Encounter Summary ---
Author Organization [facility] Address [address] [place] [address] Phone Care Team Providers Care Commissioner Of Relocation Services Name Role Phone Julio César Briseno MD Primary Care Provider [phone] Eren Cr MD Unavailable [phone] Yohana Bowen MD Unavailable Alejo Mi MD Unavailable [phone] Encounter Details Date Type Department Care Team (Late st Contact Info) Description 05/28/2023 Orders Only [facility] Oncology [address] [place] [address] Eren Cr MD [address] [place] [address] Neuroendocrine carcinoma (HCC) (Primary Dx) Social History [...] on file Legal Sex Female 2:41 PM CARBON PAPER COATING SUPERVISOR Gender Identity Not on file Sexual [...] 05/28/2023 documented in this encounter Care Teams Commissioner Of Relocation Services Relationship Specialty Start Date End Date Julio César Briseno MD PCP - General 10/01/16 Eren Cr MD Referring Physician Medical Oncology 11/25/18 Yohana Bowen MD Radiation Oncologist Radiation Oncology 11/25/18 Alejo Mi MD [id number] [place] [address] Referring Physician Nephrology 03/07/23 documented as of this encounter
--- OUTSIDE RECORDS SUMMARY | 2024-06-26 01:56 | XMS_ITS | Encounter Summary ---
Author Organization [facility] Address [address] [place] [address] Phone Care Team Providers Care Shop Tailor Name Role Phone Julio César Briseno MD Primary Care Provider [phone] Eren Cr MD Unavailable [phone] Yohana Bowen MD Unavailable [place] Ramos MD Unavailable [phone] Reason for Visit * Reason Comments Port Draw * Episode Based Medications (Routine) - Closed Specialty Diagnoses / Procedures Referred By Contac t Referred To Contact Diagnoses Neuro-endocrine carcinoma (HCC) Procedures study [id number] phase III cabozantinib Eren Cr MD [address] [facility] [address] [place] [address] Phone: tel: fax: [facility] [address] [facility] Advanced Medicine 7th [place] [address] Phone: tel: Referral ID Status Reason Start Date Expiration Date Visits Re quested Visits Authorized [id number] Closed 06/21/2021 06/26/2024 1 99 Encounter Details Date Type Department Care Team (Latest Contact Info) Description 05/28/2023 11:00 AM VERTICA ARCHITECT Clinical Support [facility] Oncology [address] [place] [address] 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 [...] on file Legal Sex Female 2:41 PM VERTICA ARCHITECT Gender Identity Not on file Sexual [...] 05/28/2023 documented in this encounter Care Teams Shop Tailor Relationship Specialty Start Date End Date Julio César Briseno MD PCP - General 10/01/16 Eren Cr MD Referring Physician Medical Oncology 11/25/18 Yohana Bowen MD Radiation Oncologist Radiation Oncology 11/25/18 Alejo Mi MD [address] [address] Referring Physician Nephrology 03/07/23 documented as of this encounter
--- OUTSIDE RECORDS SUMMARY | 2024-06-26 01:56 | XMS_ITS | Encounter Summary ---
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) Procedures [place] OCTREOTIDE INJECTION, DEPOT Octreotide 28 Day Cycles - Carcinoid Eren Cr MD [address] [facility] [address] [place] [address] Phone: tel: fax: [address] [address] Phone: tel: fax: Referral ID Status Reason Start Date Expiration Date V isits Requested Visits Authorized [id number] Authorized 11/28/2017 02/05/2025 1 150 Encounter Details Date Type Department Care Team (Late st Contact Info) Description 05/28/2023 1:00 PM INTEL ANALYST Infusion [facility] Oncology [address] [place] [address] 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 [...] on file Legal Sex Female 2:41 PM INTEL ANALYST Gender Identity Not on file Sexual Orientation Straight 02/19/2021 9: 29 AM CDT Occupation Industry Job Start Date Job End Date retired Not on file Not on file Not on file documented as of this encounter Nursing Notes * Anny Jara, [place] - 05/28/2023 1:00 PM CST Oncology Nursing Note [facility] La Chung is a 72 [...] Ambulatory Accompanied by: Family Discharged To: Home L ANALYST documented in this encounter Plan of [...] 1 doseIndications:Hypophospha temia Given 05/28/2023 2:01 PM INTEL ANALYST 8 mg sodium chloride 0.9% bolus 1,000 mL 1,000 mL, intravenous, at 500 mL/hr, Administer over 2 Hours, Once, On Sat05/28/23 at 1415, For 1 doseIndications:Neuroendocr ine carcinoma (HCC),Dehydration New Bag 05/28/2023 1:59 PM INTEL ANALYST 1,000 mL 500 mL/hr documented in this encounter Orders Medications Ordered That Brett ht Not Have Been Administered Count Last Ordered Date First Ordered Date [id number] cabozantinib (2018-02-122/[id number]) tablet 20 mg 1 05/28/2023 octreotide LAR [...] 05/09 documented in this encounter Care Teams High Pressure Kettle Operator Relationship Specialty Start Date End Date Julio César Briseno MD PCP - General 10/01/16 Eren Cr MD Referring Physician Medical Oncology 11/25/18 Yohana Bowen MD Radiation Oncologist Radiation Oncology 11/25/18 Alejo Mi MD [address] [place] [address] Referring Physician Nephrology 03/07/23 documented as of this encounter
--- OUTSIDE RECORDS SUMMARY | 2024-06-26 01:56 | XMS_ITS | Encounter Summary ---
Author Organization [facility] Address [address] [place] [address] Care Team Providers Care Gore Maker Name Role Phone Julio César Briseno MD Primary Care Provider [phone] Eren Cr MD Unavailable [phone] Yohana Bowen MD Unavailable Alejo Mi MD Unavailable [phone] Encounter Details Date Type Department Care Team (Latest Contact Info) Description 06/27/2023 12:20 PM LOG FEEDER - 06/27/2023 11:59 PM LOG FEEDER Hospital Encounter [facility] [address] [place] [address] [phone] Neuroendocrine carcinoma (HCC); Malignant neoplasm metastatic to [...] file Legal Sex Female 2:41 PM LOG FEEDER Gender Identity Not on file Sexual [...] by mouth nightly 0.9 % sodium chloride ([facility] sodium chloride 0.9%) injectionIndicat ions:line care Infuse 10 mL into a venous catheter once a week On saturday 4 0.9 % sodium chloride (sodium chloride 0.9%) 0.9% infusion 05/22/2023 4 ascorbic acid, vitamin C, 500 mg capsuleIndicatio ns:supplement Take 1 tablet by mouth credit risk associate before breakfast 07/04/2016 4 clotrimazole-bet amethasone (LOTRISONE) cream Apply 1 Application topically daily as needed (rash) 4 coenzyme [id number] 100-5 mg-unit capsuleIndicatio ns:supplement Take 1 tablet by mouth credit risk associate before breakfast 4 diphenoxylate-at ropine (LOMOTIL) 2.5-0.025 [...] every -Heparin to flush 4 INV-[facility] cabozantinib/maris cebo (2018-02-122/A02 1602) 20 mg tabletIndication s:cancer study Take 1 tablet (20 mg total) by mouth nightly Take on an empty stomach (no food for 2 hours before and 1 hour after each dose).?? Avoid Jas's Wort, grapefruit products and [place] oranges while on treatment. 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) DIFFERENTIAL AUTO Routine 06/27/2023 10: 04 AM LOG FEEDER Neuroendocrine carcinoma (HCC) Malignant neoplasm metastatic to liver (HCC) CHROMOGRANIN A Routine 06/27/2023 10:04 AM LOG FEEDER Neuroendocrine carcinoma (HCC) Malignant neoplasm metastatic to liver (HCC) CBC WITH AUTO DIFFERENTIAL Routine 06/27/2023 10:04 AM LOG FEEDER Neuroendocrine carcinoma (HCC) Malignant neoplasm metastatic to liver (HCC) VITAMIN D 25 HYDROXY Routine 06/27/2023 10:04 AM LOG FEEDER Neuroendocrine carcinoma (HCC) Malignant neoplasm metastatic to liver (HCC) MANUAL DIFFERENTIAL Routine 06/27/2023 1 0:04 AM LOG FEEDER Neuroendocrine carcinoma (HCC) Malignant neoplasm metastatic to liver (HCC) TSH Routine 06/27/2023 10:04 AM LOG FEEDER Neuro-endocrine carcinoma (HCC) PHOSPHORUS Routine 06/27/2023 10:04 AM LOG FEEDER Neuroendocrine carcinoma (HCC) Malignant neoplasm metastatic to liver (HCC) MAGNESIUM STAT 06/27/2023 10:04 AM LOG FEEDER Neuro-endocrine carcinoma (HCC) LIPID PANEL Routine 06/27/2023 10:04 AM LOG FEEDER Neuroendocrine carcinoma (HCC) Malignant neoplasm metastatic to liver (HCC) COMPREHENSIVE METABOLIC PANEL STAT 06/27/2023 10:04 AM LOG FEEDER Neuroendocrine carcinoma (HCC) Malignant neoplasm metastatic to liver (HCC) documented in this encounter Results * Protein / creatinine ratio, urine, random (06/27/2023 1:30 PM LOG FEEDER) Protein, ur, quant 5.5 mg/dL [facility] Comment: Interpretive Data No reference range established. Current interpretive data was last revised 2018. Creatinine Ur 79.8 mg/dL [facility] Comment: Interpretive Data No reference range established. Current interpretive data was last revised 2018. Protein/creatinin e ratio 68.9 0.0 - 180.0 mg/g CR [facility] Urine 06/27/2023 1:30 PM LOG FEEDER 06/27/2023 3:42 PM LOG FEEDER us Eren Cr MD LAB URINE ORDERABLES Final Re sult [facility] [place] [address] * (ABNORMAL) eGFR (06/27/2023 10:04 AM LOG FEEDER) eGFR 48(L) >=60 mL/min/1. 73 m2 [facility] Comment: Interpretive Data Reference Interval [...] reviewed 2021. Blood 06/27/2023 10:0 4 AM LOG FEEDER 06/27/2023 10:06 AM LOG FEEDER us Eren Cr MD LAB BLOOD ORDERABLES Final Re sult [facility] [place] [address] * (ABNORMAL) Manual Differential (06/27/2023 10:04 AM LOG FEEDER) Differential Auto [facility] Neutrophil abs 1.9 1.5 - 6.5 K/cumm [facility] Comment:Testing performed by : [address] [address] Imm gran abs 0.0 0.0 - 0.1 K/cumm [facility] Lymphocyte abs 0.3(L) 0.8 - 3.3 K/cumm [facility] Monocyte abs 0.3 0.2 - 0.8 K/cumm [facility] Eosinophil abs 0.2 0.0 - 0.5 K/cumm [facility] Basophil abs 0.0 0.0 - 0.1 K/cumm [facility] Neutrophil pct 69.4 % [facility] Comment: Consistent with previous result Interpretive Data Percent cell count reference ranges are not reported, since discordance with absolute values may lead to misinterpretation of CBC data. Current Interpretive Data was last revised on 2017. Imm gran pct 0.4 % [facility] Comment: Interpretive Data Percent cell count reference ranges are not reported, since discordance with absolute values may lead to misinterpretation of CBC data. Current Interpretive Data was last revised on 2017. Lymphocyte pct 11.8 % [facility] Comment: Interpretive Data Percent cell count reference ranges are not reported, since discordance with absolute values may lead to misinterpretation of CBC data. Current Interpretive Data was last revised on 2017. Monocyte pct 10.8 % [facility] Comment: Interpretive Data Percent cell count reference ranges are not reported, since discordance with absolute values may lead to misinterpretation of CBC data. Current Interpretive Data was last revised on 2017. Eosinophil pct 7.2 % [facility] Comment: Interpretive Data Percent cell count reference ranges are not reported, since discordance with absolute values may lead to misinterpretation of CBC data. Current Interpretive Data was last revised on 2017. Basophil pct 0.4 % [facility] Comment: Interpretive Data Percent cell count reference ranges are not reported, since discordance with absolute values may lead to misinterpretation of CBC data. Current Interpretive Data was last revised on 2017. RBC morphology Normal [facility] Platelet estimate Decreased( A) [facility] Blood 06/27/2023 10:0 4 AM LOG FEEDER 06/27/2023 10:06 AM LOG FEEDER Eren Cr MD LAB BLOOD ORDERABLES Edited R esult - Final [facility] [place] [address] * (ABNORMAL) Differential, auto (06/27/2023 10:04 AM LOG FEEDER) Neutrophil abs 1.9 1.5 - 6.5 K/cumm [facility] Comment:Testing performed by : [facility], [address] [place] [address] Imm gran abs 0.0 0.0 - 0.1 K/cumm [facility] Lymphocyte abs 0.3(L) 0.8 - 3.3 K/cumm [facility] Monocyte abs 0.3 0.2 - 0.8 K/cumm [facility] Eosinophil abs 0.2 0.0 - 0.5 K/cumm [facility] Basophil abs 0.0 0.0 - 0.1 K/cumm [facility] Neutrophil pct 69.4 % [facility] Comment: Consistent with previous result Interpretive Data Percent cell count reference ranges are not reported, since discordance with absolute values may lead to misinterpretation of CBC data. Current Interpretive Data was last revised on 2017. Imm gran pct 0.4 % [facility] Comment: Interpretive Data Percent cell count reference ranges are not reported, since discordance with absolute values may lead to misinterpretation of CBC data. Current Interpretive Data was last revised on 2017. Lymphocyte pct 11.8 % [facility] Comment: Interpretive Data Percent cell count reference ranges are not reported, since discordance with absolute values may lead to misinterpretation of CBC data. Current Interpretive Data was last revised on 2017. Monocyte pct 10.8 % [facility] Comment: Interpretive Data Percent cell count reference ranges are not reported, since discordance with absolute values may lead to misinterpretation of CBC data. Current Interpretive Data was last revised on 2017. Eosinophil pct 7.2 % [facility] Comment: Interpretive Data Percent cell count reference ranges are not reported, since discordance with absolute values may lead to misinterpretation of CBC data. Current Interpretive Data was last revised on 2017. Basophil pct 0.4 % [facility] Comment: Interpretive Data Percent cell count reference ranges are not reported, since discordance with absolute values may lead to misinterpretation of CBC data. Current Interpretive Data was last revised on 2017. Blood 06/27/2023 10:0 4 AM LOG FEEDER 06/27/2023 10:06 AM LOG FEEDER Eren Cr MD LAB BLOOD ORDERABLES Final Re sult Performing Organization Address [facility] Co de Phone Number [facility] Department [place] [address] * Magnesium (06/27/2023 10:04 AM LOG FEEDER) Magnesium 1.5 1.4 - 2.5 mg/dL [facility] Comment:Testing performed by : [facility], [address] [place] [address] Blood 06/27/2023 10:0 4 AM LOG FEEDER 06/27/2023 10:06 AM LOG FEEDER Eren Cr MD LAB BLOOD ORDERABLES Final Re sult [facility] Department [place] [address] * (ABNORMAL) TSH (06/27/2023 10:04 AM LOG FEEDER) Thyroid Stimulating Hormone 5.88(H) 0.30 - 4.20 mcIUnit/mL [facility] Blood 06/27/2023 10:0 4 AM LOG FEEDER 06/27/2023 11:37 AM LOG FEEDER us Eren Cr MD LAB BLOOD ORDERABLES Final Re sult [facility] [place] [address] * (ABNORMAL) Lipid panel (06/27/2023 10:04 AM LOG FEEDER) Cholesterol 152 30 - 199 mg/dL [facility] Comment: [...] revised on 2018. Triglycerides 150(H) <=149 mg/dL [facility] Comment: Interpretive [...] on 2018. HDL 62 >=40 mg/dL [facility] Comment: [...] 2018. LDL, calculated 60 <=129 mg/dL [facility] Comment: [...] revised on 2018. Non-HDL Cholesterol 90 mg/dL [facility] Comment: Interpretive Data [...] last revised on 2018. Chol/HDL ratio 2 [facility] Blood 06/27/2023 10:0 4 AM LOG FEEDER 06/27/2023 11:37 AM LOG FEEDER Eren Cr MD LAB BLOOD ORDERABLES Final Re sult Performing Organization Address City/[facility] Co de Phone Number [facility] Department [place] [address] * (ABNORMAL) Phosphorus (06/27/2023 10:04 AM LOG FEEDER) Phosphorus, pl 2.0(L) 2.3 - 4.5 mg/dL [facility] Comment:Testing performed by : [facility], [address] [place] [address] Blood 06/27/2023 10:0 4 AM LOG FEEDER 06/27/2023 10:06 AM LOG FEEDER Eren Cr MD LAB BLOOD ORDERABLES Final Re sult Performing Organization Address City/[facility]/ZIP Co de Phone Number [facility] Department of Laboratories [place], [place] [id number] * (ABNORMAL) Vitamin D 25 hydroxy (06/27/2023 10:04 AM LOG FEEDER) Pathologist [facility] Vitamin D 25-OH 16(L) 30 - 80 ng/mL [facility] Blood 06/27/2023 10:0 4 AM LOG FEEDER 06/27/2023 11:37 AM LOG FEEDER Eren Cr MD LAB BLOOD ORDERABLES Final Re sult [facility] [place] [address] * (ABNORMAL) CBC with auto differential (06/27/2023 10:04 AM LOG FEEDER) [facility] WBC 2.8(L) 3.8 - 9.9 K/cumm [facility] Comment:Testing performed by : [address] [address] Hgb 11.2(L) 11.9 - 15.5 g/dL [facility] Comment:Testing performed by : [address] [address] Hct 34.1(L) 35.6 - 45.5 % [facility] Comment:Testing performed by : [address] [address] Plt 84(L) 150 - 400 K/cumm [facility] Comment:Testing performed by : [address] [address] MPV 10.5 9.1 - 12.3 fL [facility] RBC 3.42(L) 3.90 - 5.20 M/cumm [facility] MCV 99.7(H) 81.3 - 96.4 fL [facility] MCH 32.7 27.1 - 33.3 pg [facility] MCHC 32.8 32.3 - 35.7 g/dL [facility] RDW CV 14.4 11.1 - 14.9 % [facility] RDW SD 51.8(H) 35.7 - 48.1 fL [facility] NRBC abs 0.00 0.00 - 0.01 K/cumm [facility] Blood 06/27/2023 10:0 4 AM LOG FEEDER 06/27/2023 10:06 AM LOG FEEDER Eren Cr MD LAB BLOOD ORDERABLES Edited R esult - Final [facility] [place] [address] * (ABNORMAL) Comprehensive metabolic panel (06/27/2023 10:04 AM LOG FEEDER) Sodium 140 135 - 145 mmol/L [facility] Comment:Testing performed by : [address] [address] Potassium, pl 3.7 3.3 - 4.9 mmol/L [facility] Chloride 109 97 - 110 mmol/L [facility] CO2 27 22 - 32 mmol/L [facility] Anion gap 4 2 - 15 mmol/L [facility] BUN 11 6 - 25 mg/dL [facility] Creatinine 1.20(H) 0.60 - 1.10 mg/dL [facility] Glucose 129 70 - 199 mg/dL [facility] [...] 2022. Calcium 9.5 8.5 - 10.3 mg/dL [facility] Bilirubin, total 0.5 0.1 - 1.2 mg/dL [facility] Protein, pl 6.0(L) 6.5 - 8.5 g/dL [facility] Albumin 4.0 3.5 - 5.0 g/dL [facility] Alk phos 57 40 - 130 Units/L [facility] ALT 25 7 - 45 Units/L [facility] AST 35 10 - 45 Units/L [facility] Blood 06/27/2023 10:0 4 AM LOG FEEDER 06/27/2023 10:06 AM LOG FEEDER Eren Cr MD LAB BLOOD ORDERABLES Final Re sult [facility] [place] [address] * (ABNORMAL) Chromogranin A (06/27/2023 10:04 AM LOG FEEDER) Chromogranin A 1997(H) <93 ng/mL [facility] Comment: Impaired renal [...] homogeneous time-resolved immunofluorescent assay manufactured by [employer] and performed on the [employer] Kryptor Compact Plus. ? Values obtained with different assay methods or kits may be different and cannot be used interchangeably. ? Test results cannot be interpreted as absolute evidence for the presence or absence of malignant disease. Test Performed by: [facility] - [address] [address]: Immanuel Novak M.D. 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
--- OUTSIDE RECORDS SUMMARY | 2024-06-26 01:56 | XMS_ITS | Encounter Summary ---
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) Procedures NE OCTREOTIDE INJECTION, DEPOT Octreotide 28 Day Cycles - Carcinoid Eren Cr MD [address] [facility] [address] [place] [address] Phone: tel: fax: [address] [address] Phone: tel: fax: Referral ID Status Reason Start Date Expiration Date V isits Requested Visits Authorized [id number] Authorized 11/28/2017 02/05/2025 1 150 Encounter Details Date Type Department Care Team (Late st Contact Info) Description 06/27/2023 11:30 AM COUNTY SURVEYOR Infusion [facility] [address] [place] [address] Dehydration (Primary Dx); Neuroendocrine carcinoma (HCC); Malignant [...] on file Legal Sex Female 2:41 PM COUNTY SURVEYOR Gender Identity Not on file Sexual Orientation Straight 02/19/2021 9: 29 AM CDT Occupation Industry Job Start Date Job End Date retired Not on file Not on file Not on file documented as of this encounter Nursing Notes * Sabrina Dumont, [place] - 06/27/2023 11:30 AM CST Oncology Nursing Note [facility] La Chung is a 72 [...] Ambulatory Accompanied by: Spouse Discharged To: Home TY SURVEYOR * Sabrina Dumont RN - 06/27/2023 11:30 AM CST Oncology Nursing Note [facility] La Chung is a 72 [...] Ambulatory Accompanied by: Spouse Discharged To: Home TY SURVEYOR documented in this encounter Plan of Treatment [...] to liver (HCC) Given 06/27/2023 1:22 PM COUNTY SURVEYOR 30 mg Left Dorsogluteal/B uttock sodium chloride 0.9% bolus 1,000 mL 1,000 mL, intravenous, at 500 mL/hr, Administer over 2 Hours, Once, On Lydia 06/27/23 at 1145, For 1 doseIndications:Neuroendo crine carcinoma (HCC),Dehydration New Bag 06/27/2023 11:08 AM COUNTY SURVEYOR 1,000 mL 500 mL/hr documented in this encounter Orders Appointment Requests Count Last Ordered Date Fi rst Ordered Date ONCBCN INFUSION APPT REQUEST 1 06/27/2023 documented in this encounter Care Teams Exercise Specialist Relationship Specialty Start Date End Date Julio César Briseno MD PCP - General 10/01/16 Eren Cr MD Referring Physician Medical Oncology 11/25/18 Yohana Bowen MD Radiation Oncologist Radiation Oncology 11/25/18 Alejo Mi MD [address] [address] Referring Physician Nephrology 03/07/23 documented as of this encounter
--- OUTSIDE RECORDS SUMMARY | 2024-06-26 01:56 | XMS_ITS | Encounter Summary ---
Author Organization [facility] [place] [facility] Address [address] [place] [address] Phone Care Team Providers Care Loom Overhauler Name Role Phone Julio César Briseno MD Primary Care Provider Eren Cr MD Unavailable Yohana Bowen MD Unavailable Alejo Mi MD Unavailable [phone] Encounter Details Date Type Department Care Team (Late st Contact Info) Description 06/11/2023 3:30 PM SOLAR PANEL INSTALLER Office Visit [facility] Nephrology [facility] 5th [place] [address] [place] [address] Alejo Mi MD [facility] [address] [place] [address] Stage 3b chronic kidney disease [...] on file Legal Sex Female 2:41 PM SOLAR PANEL INSTALLER Gender Identity Not on file Sexual Orientation Straight 02/19/2021 9: 29 AM CDT Occupation Industry Job Start Date Job End Date retired Not on file Not on file Not on file documented as of this encounter Last Filed Vital Signs Vital Sign Reading Time Taken Comments Blood Pressure 110/72 06/11/2023 3:18 PM SOLAR PANEL INSTALLER Pulse 76 06/11/2023 3:18 PM SOLAR PANEL INSTALLER Temperature - - Respiratory Rate - - Oxygen Saturation - - Inhaled Oxygen Concentration - - Weight 77 kg (169 lb 12.8 oz) 06/11/2023 3:18 PM SOLAR PANEL INSTALLER Height 160 cm (5' 3 ) 06/11/2023 3:18 PM SOLAR PANEL INSTALLER Body Mass Index 30.08 06/11/2023 3:18 PM SOLAR PANEL INSTALLER documented in this encounter Ordered Prescriptions Prescription [...] will follow up on this with her cook house supervisor or oncologist.. She also stated that she [...] Visit Medication Sig 0.9 % sodium chloride ([facility] sodium chloride 0.9%) injection Infuse 10 mL into a venous catheter once a week On saturday 0.9 % sodium chloride (sodium chloride 0.9%) 0.9% infusion ascorbic acid, vitamin C, 500 mg capsule Take 1 tablet by mouth four h club agent before breakfast cholecalciferol (VITAMIN D-3) 1,000 unit Take 1 tablet/capsule (1,000 Units total) by mouth daily (Patient taking differently: Take 1 tablet/capsule (1,000 Units total) by mouth every morning) clotrimazole-betamethasone (LOTRISONE) cream Apply 1 Application topically daily as needed (rash) coenzyme [id number] 100-5 mg-unit capsule Take 1 tablet by mouth four h club agent before breakfast denosumab (Xgeva) 120 mg/1.7 mL [...] a week Fluids every -Heparin to flush [facility] cabozantinib/placebo (/[id number]) 20 mg tablet Take 1 tablet (20 mg total) bymouth nightly Take on an empty stomach (no food for 2 hours before and 1 hour after each dose). Avoid Paguate's Wort, grapefruit products and [place] oranges while on treatment. placed on hold 09/26/22 for covid levothyroxine (SYNTHROID) 88 mcg tablet Take 1 tablet (88 mcg total) by mouth four h club agent before breakfast (Patient taking differently: Take 1 tablet (88 mcg total) by mouth four h club agent before breakfast) lidocaine-prilocaine (lidocaine-prilocaine) cream Apply topically [...] venous catheter once a week Patient to [id number] of Normal Saline via CADD Coreas pump [...] BS normal. No masses SKIN: No rash EDUCATIONAL TECHNICIAN: Alert Ox3. No focal motor deficits PSYCH: Pleasant, cooperative, appropriate affect. MSK: No joint swelling or tenderness LABORATORY DATA Sodium Date Value Ref Range Status 05/28/2023 137 135 - 145 mmol/L Final Comment: Testing performed by: [address] [address] 05/28/2023 138 135 - 145 mmol/L Final Comment: Testing performed by: [address] [address] 05/02/2023 138 135 - 145 mmol/L Final Comment: Testing performed by: [address] [address] Potassium, pl Date Value Ref Range Status [...] 4.5 mg/dL Final Comment: Testing performed by: [facility], [address] [place] [id number] 05/28/2023 2.1 (L) 2.3 - 4.5 mg/dL Final Comment: Testing performed by: [facility], [address] [place] [address] 05/02/2023 1.9 (L) 2.3 - 4.5 mg/dL Final Comment: Testing performed by: [facility], [address] [place] [address] PTH Date Value Ref Range Status 10/18/2022 [...] 15.5 g/dL Final Comment: Testing performed by: [facility], [address] [place] [id number] Interpretive Data A reference range for this assay has not been established for patients with an unknown legal sex. Please refer to the laboratory test catalog for established sex-specific reference intervals. Current interpretive data was last revised on 2023. 05/28/2023 11.3 (L) 11.9 - 15.5 g/dL Final Comment: Testing performed by: [facility], [address] [place] [address] Interpretive Data A reference range for this assay has not been established for patients with an unknown legal sex. Please refer to the laboratory test catalog for established sex-specific reference intervals. Current interpretive data was last revised on 2023. 05/02/2023 10.9 (L) 11.9 - 15.5 g/dL Final Comment: Testing performed by: [facility], [address] [place] [id number] Interpretive Data A reference range for this [...] PTH after she has completed replacement -vitamin-D 15729 units once weekly for 12 weeks -reassess PTH after completion of vitamin-D DISPOSITION: The patient will return follow up in 6 months. Livan Petersen MD, PhD PGY3 Internal Medicine Cosigned by Alejo Mi MD at 06/12/2023 10:07 AM SOLAR PANEL INSTALLER R PANEL INSTALLER R PANEL INSTALLER Associated attestation - Alejo Mi MD - 06/12/2023 10:07 AM SOLAR PANEL INSTALLER I have seen and examined the patient [...] 05/22/202306/20 added in this encounter Care Teams Loom Overhauler Relationship Specialty Start Date End Date Julio César Briseno MD PCP - General 10/01/16 Eren Cr MD Referring Physician Medical Oncology 11/25/18 Yohana Bowen MD Radiation Oncologist Radiation Oncology 11/25/18 Alejo Mi MD [address] [place] [address] Referring Physician Nephrology 03/07/23 documented as of this encounter
--- OUTSIDE RECORDS SUMMARY | 2024-06-26 01:56 | XMS_ITS | Encounter Summary ---
Author Organization [facility] Address [address] [place] [address] Phone Care Team Providers Care Buttonholer Name Role Phone Julio César Briseno MD Primary Care Provider Eren Cr MD Unavailable [phone] Yohana Bowen MD Unavailable Alejo Mi MD Unavailable [phone] Reason for Visit * Reason Comments Hearing Loss Pt is here for 3 mon follow up visit- s/p Rt Plasty Encounter Details Date Type Department Care Team (Late st Contact Info) Description 06/24/2023 11:45 AM EDUCATIONAL PSYCHOLOGY TEACHER Office Visit [facility] Otolaryngology [facility] [address] [facility], [address] [place] [address] Nasim Rojas MD [facility] N [facility] DEPT OTOLARYNGOLOGY, [facility] [address] [place] [address] Conductive hearing loss of right [...] file Legal Sex Female 2:41 PM EDUCATIONAL PSYCHOLOGY TEACHER Gender Identity Not on file [...] mg capsule Take 1 tablet by mouth assignment clerk before breakfast cholecalciferol (VITAMIN D-3) 1,000 unit Take 1 tablet/capsule (1,000 Units total) by mouth daily (Patient taking differently: Take 1 tablet/capsule (1,000 Units total) by mouth every morning) 90 tablet/capsule 3 clotrimazole-betamethasone (LOTRISONE) cream Apply 1 Application topically daily as needed (rash) coenzyme [id number] 100-5 mg-unit capsule Take 1 tablet by mouth assignment clerk before breakfast denosumab (Xgeva) 120 mg/1.7 mL [...] a week Fluids every -Heparin to flush [facility] cabozantinib/placebo (/[id number]) 20 mg tablet Take 1 tablet (20 mg total) bymouth nightly Take on an empty stomach (no food for 2 hours before and 1 hour after each dose). Avoid Jas's Wort, grapefruit products and [place] oranges while on treatment. placed on hold 09/26/22 for covid levothyroxine (SYNTHROID) 88 mcg tablet Take 1 tablet (88 mcg total) by mouth assignment clerk before breakfast (Patient taking differently: Take 1 tablet (88 mcg total) by mouth assignment clerk before breakfast) 90 tablet 1 lidocaine-prilocaine (lidocaine-prilocaine) [...] venous catheter once a week Patient to [id number] of Normal Saline via CADD Coreas pump [...] Cell Culture-based MDCK, Preservative Free, Antibiotic Free, Vsjeqbiynrqrz93/15/2018 Influenza, Quadrivalent, High Dose, Preservative Free, Intrr [...] aid amplification under the care of her automation controls specialist. Otherwise, she will return 1 year or sooner as needed. I have seen and examined the patient. I agree with the findings and plan of care as documented. MD Nasim Wiley M.D. 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
--- OUTSIDE RECORDS SUMMARY | 2024-06-26 01:56 | XMS_ITS | Encounter Summary ---
Author Organization [facility] Healthcare Address [address] [place] [address] Care Team Providers Care Music Copyist Name Role Phone Julio César Briseno MD Primary Care Provider [phone] Eren Cr MD Unavailable [phone] Yohana Bowen MD Unavailable Alejo Mi MD Unavailable [phone] Encounter Details Date Type Department Care Team (Latest Contact Info) Description 07/25/2023 3:06 PM STATISTICAL MODELER - 07/25/2023 11:59 PM STATISTICAL MODELER Hospital Encounter [facility] [address] [place] [address] [phone] Neuroendocrine carcinoma (HCC); Malignant neoplasm metastatic to [...] on file Legal Sex Female 2:41 PM STATISTICAL MODELER Gender Identity Not on file Sexual Orientation [...] nightly 0.9 % sodium chloride ([facility] sodium chloride 0.9%) injectionIndicat ions:line care Infuse 10 mL into a venous catheter once a week On saturday 4 0.9 % sodium chloride (sodium chloride 0.9%) 0.9% infusion 05/22/2023 4 ascorbic acid, vitamin C, 500 mg capsuleIndicatio ns:supplement Take 1 tablet by mouth profile saw setup operator before breakfast 07/04/2016 4 clotrimazole-bet amethasone (LOTRISONE) cream Apply 1 Application topically daily as needed (rash) 4 coenzyme E87-amtycpz E 100-5 mg-unit capsuleIndicatio ns:supplement Take 1 tablet by mouth profile saw setup operator before breakfast 4 diphenoxylate-at ropine (LOMOTIL) [...] every -Heparin to flush 4 IN[facility] cabozantinib/maris cebo (2018-02-122/A02 1602) 20 mg tabletIndication s:cancer study Take 1 tablet (20 mg total) by mouth nightly Take on an empty stomach (no food for 2 hours before and 1 hour after each dose).?? Avoid [place]'s Wort, grapefruit products and [place] oranges while on treatment. 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) DIFFERENTIAL AUTO Routine 07/25/2023 9:4 7 AM STATISTICAL MODELER Neuroendocrine carcinoma (HCC) Malignant neoplasm metastatic to liver (HCC) CHROMOGRANIN A Routine 07/25/2023 9:47 AM STATISTICAL MODELER Neuroendocrine carcinoma (HCC) Malignant neoplasm metastatic to liver (HCC) CBC WITH AUTO DIFFERENTIAL Routine 07/25/2023 9:47 AM STATISTICAL MODELER Neuroendocrine carcinoma (HCC) Malignant neoplasm metastatic to liver (HCC) VITAMIN D 25 HYDROXY Routine 07/25/2023 9:47 AM STATISTICAL MODELER Neuroendocrine carcinoma (HCC) Malignant neoplasm metastatic to liver (HCC) PHOSPHORUS Routine 07/25/2023 9:47 AM STATISTICAL MODELER Neuroendocrine carcinoma (HCC) Malignant neoplasm metastatic to liver (HCC) MAGNESIUM STAT 07/25/2023 9:47 AM STATISTICAL MODELER Neuro-endocrine carcinoma (HCC) LIPID PANEL Routine 07/25/2023 9:47 AM STATISTICAL MODELER Neuroendocrine carcinoma (HCC) Malignant neoplasm metastatic to liver (HCC) COMPREHENSIVE METABOLIC PANEL STAT 07/25/2023 9:47 AM STATISTICAL MODELER Neuroendocrine carcinoma (HCC) Malignant neoplasm metastatic to liver (HCC) documented in this encounter Results * (ABNORMAL) eGFR (07/25/2023 9:47 AM STATISTICAL MODELER) eGFR 39(L) >=60 mL/min/1. 73 m2 [facility] Comment: Interpretive Data Reference Interval [...] last reviewed 2021. Blood 07/25/2023 9:47 AM STATISTICAL MODELER 07/25/2023 9:49 AM STATISTICAL MODELER us Eren Cr MD LAB BLOOD ORDERABLES Final Re sult [facility] Department [place] [address] * (ABNORMAL) Differential, auto (07/25/2023 9:47 AM STATISTICAL MODELER) [facility] Neutrophil abs 2.0 1.5 - 6.5 K/cumm [facility] Comment:Testing performed by : [facility], [address] [place] [address] Imm gran abs 0.0 0.0 - 0.1 K/cumm [facility] Lymphocyte abs 0.4(L) 0.8 - 3.3 K/cumm [facility] Monocyte abs 0.5 0.2 - 0.8 K/cumm [facility] Eosinophil abs 0.1 0.0 - 0.5 K/cumm [facility] Basophil abs 0.0 0.0 - 0.1 K/cumm [facility] Neutrophil pct 66.9 % [facility] Comment: Consistent with previous result Interpretive Data Percent cell count reference ranges are not reported, since discordance with absolute values may lead to misinterpretation of CBC data. Current Interpretive Data was last revised on 2017. Imm gran pct 0.3 % [facility] Comment: Interpretive Data Percent cell count reference ranges are not reported, since discordance with absolute values may lead to misinterpretation of CBC data. Current Interpretive Data was last revised on 2017. Lymphocyte pct 12.1 % [facility] Comment: Interpretive Data Percent cell count reference ranges are not reported, since discordance with absolute values may lead to misinterpretation of CBC data. Current Interpretive Data was last revised on 2017. Monocyte pct 15.4 % [facility] Comment: Interpretive Data Percent cell count reference ranges are not reported, since discordance with absolute values may lead to misinterpretation of CBC data. Current Interpretive Data was last revised on 2017. Eosinophil pct 4.6 % [facility] Comment: Interpretive Data Percent cell count reference ranges are not reported, since discordance with absolute values may lead to misinterpretation of CBC data. Current Interpretive Data was last revised on 2017. Basophil pct 0.7 % [facility] Comment: Interpretive Data Percent cell count reference ranges are not reported, since discordance with absolute values may lead to misinterpretation of CBC data. Current Interpretive Data was last revised on 2017. Blood 07/25/2023 9:47 AM STATISTICAL MODELER 07/25/2023 9:49 AM STATISTICAL MODELER Eren Cr MD LAB BLOOD ORDERABLES Final Re sult [facility] Department of Laboratories [place], [place] [id number] * Magnesium (07/25/2023 9:47 AM STATISTICAL MODELER) Magnesium 1.5 1.4 - 2.5 mg/dL [facility] Comment:Testing performed by : [facility], [address] [place] [address] Blood 07/25/2023 9:47 AM STATISTICAL MODELER 07/25/2023 9:49 AM STATISTICAL MODELER us Eren Cr MD LAB BLOOD ORDERABLES Final Re sult [facility] Department [place] [address] * Lipid panel (07/25/2023 9:47 AM STATISTICAL MODELER) Cholesterol 138 30 - 199 mg/dL [facility] [...] on 2018. HDL 50 >=40 mg/dL [facility] Comment: Interpretive Data Ages < [...] 2018. LDL, calculated 66 <=129 mg/dL [facility] Comment: Interpretive Data Ages < [...] 2018. Chol/HDL ratio 3 [facility] Blood 07/25/2023 9:47 AM STATISTICAL MODELER 07/25/2023 10:37 AM STATISTICAL MODELER Eren Cr MD LAB BLOOD ORDERABLES Final Re sult Performing Organization Address [facility] de Phone Number [facility] [place] [address] * Phosphorus (07/25/2023 9:47 AM STATISTICAL MODELER) Phosphorus, pl 3.4 2.3 - 4.5 mg/dL [facility] Comment:Testing performed by : [facility], [address] [place] [address] Blood 07/25/2023 9:47 AM STATISTICAL MODELER 07/25/2023 9:49 AM STATISTICAL MODELER Eren Cr MD LAB BLOOD ORDERABLES Final Re sult Performing Organization Address [facility] de Phone Number [facility] [place] [address] * (ABNORMAL) Vitamin D 25 hydroxy (07/25/2023 9:47 AM STATISTICAL MODELER) Vitamin D 25-OH 22(L) 30 - 80 ng/mL [facility] Blood 07/25/2023 9:47 AM STATISTICAL MODELER 07/25/2023 10:37 AM STATISTICAL MODELER Eren Cr MD LAB BLOOD ORDERABLES Final Re sult Performing Organization Address [facility]/ZIP Co de Phone Number [facility] Department [place] [address] * (ABNORMAL) CBC with auto differential (07/25/2023 9:47 AM STATISTICAL MODELER) [facility] WBC 3.1(L) 3.8 - 9.9 K/cumm [facility] Comment:Testing performed by : [address] [address] Hgb 11.8(L) 11.9 - 15.5 g/dL [facility] Comment:Testing performed by : [address] [address] Hct 35.5(L) 35.6 - 45.5 % [facility] Comment:Testing performed by : [address] [address] Plt 84(L) 150 - 400 K/cumm [facility] Comment:Testing performed by : [address] [address] MPV 10.3 9.1 - 12.3 fL [facility] RBC 3.66(L) 3.90 - 5.20 M/cumm [facility] MCV 97.0(H) 81.3 - 96.4 fL [facility] MCH 32.2 27.1 - 33.3 pg [facility] MCHC 33.2 32.3 - 35.7 g/dL [facility] RDW CV 14.2 11.1 - 14.9 % [facility] RDW SD 49.9(H) 35.7 - 48.1 fL [facility] NRBC abs 0.00 0.00 - 0.01 K/cumm [facility] Blood 07/25/2023 9:47 AM STATISTICAL MODELER 07/25/2023 9:49 AM STATISTICAL MODELER Eren Cr MD LAB BLOOD ORDERABLES Final Re sult [facility] Department [place] [address] * (ABNORMAL) Comprehensive metabolic panel (07/25/2023 9:47 AM STATISTICAL MODELER) Sodium 137 135 - 145 mmol/L [facility] Comment:Testing performed by : [facility], [address] [place] [address] Potassium, pl 4.3 3.3 - 4.9 mmol/L [facility] Chloride 107 97 - 110 mmol/L [facility] CO2 27 22 - 32 mmol/L [facility] Anion gap 3 2 - 15 mmol/L [facility] BUN 14 6 - 25 mg/dL [facility] Creatinine 1.40(H) 0.60 - 1.10 mg/dL [facility] Glucose 113 70 - 199 mg/dL [facility] Comment: [...] 2022. Calcium 10.3 8.5 - 10.3 mg/dL [facility] Bilirubin, total 0.7 0.1 - 1.2 mg/dL [facility] Protein, pl 6.4(L) 6.5 - 8.5 g/dL [facility] Albumin 4.1 3.5 - 5.0 g/dL [facility] Alk phos 66 40 - 130 Units/L [facility] ALT 22 7 - 45 Units/L [facility] AST 35 10 - 45 Units/L [facility] Blood 07/25/2023 9:47 AM STATISTICAL MODELER 07/25/2023 9:49 AM STATISTICAL MODELER us Eren Cr MD LAB BLOOD ORDERABLES Final Re sult [facility] Department [place] [address] * (ABNORMAL) Chromogranin A (07/25/2023 9:47 AM STATISTICAL MODELER) Chromogranin A 1971(H) <93 ng/mL [facility] Comment: Impaired renal or hepatic function or treatment with proton pump inhibitors may result in artifactual elevations of Chromogranin A. ADDITIONAL INFORMATION This test was developed and its performance characteristics determined by [facility] in a manner consistent with CLIA [...] a homogeneous time-resolved immunofluorescent assay manufactured by [employer] and performed on the [employer] Kryptor Compact Plus. ? Values obtained with different assay methods or kits may be different and cannot be used interchangeably. ? Test results cannot be interpreted as absolute evidence for the presence or absence of malignant disease. Test Performed by: [place] [address] Lodging House Keeper: Immanuel Novak M.D. Ph.D.; CLIA# [id number] Blood 07/25/2023 9:47 AM STATISTICAL MODELER 07/25/2023 10:40 AM STATISTICAL MODELER us Eren Cr MD LAB BLOOD ORDERABLES Final Re sult [facility] Department [place] [address] documented in this encounter Visit Diagnoses Diagnosis Neuroendocrine carcinoma (HCC) Other malignant neoplasm of unspecified site Malignant neoplasm metastatic to liver (HCC) Neuro-endocrine carcinoma (HCC) Other malignant neoplasm of unspecified site documented in this encounter Care Teams Music Copyist Relationship Specialty Start Date End Date Julio César Briseno MD PCP - General 10/01/16 Eren Cr MD Referring Physician Medical Oncology 11/25/18 Yohana Bowen MD Radiation Oncologist Radiation Oncology 11/25/18 Alejo Mi MD [address] [place] [address] Referring Physician Nephrology 03/07/23 documented as of this encounter
--- OUTSIDE RECORDS SUMMARY | 2024-06-26 01:56 | XMS_ITS | Encounter Summary ---
Author Organization [facility] Address [address] [place] [address] Phone Care Team Providers Care Car Changer Name Role Phone Julio César Briseno MD Primary Care Provider [phone] Eren Cr MD Unavailable [phone] Yohana Bowen MD Unavailable LyonsAlejo Ramos MD Unavailable [phone] Reason for Visit * Episode Based Medications (Routine) - Closed Specialty Diagnoses / Procedures Referred By Contac t Referred To Contact Diagnoses Neuro-endocrine carcinoma (HCC) Procedures study [id number] phase III cabozantinib Eren Cr MD [address] [place] [address] Phone: tel: fax: [facility] [address] [facility] Advanced Medicine 7th [place] [address] Phone: tel: Referral ID Status Reason Start Date Expiration Date Visits Re quested Visits Authorized [id number] Closed 06/21/2021 06/26/2024 1 99 Encounter Details Date Type Department Care Team (Latest Contact Info) Description 07/25/2023 9:30 AM TAR ROOFER Clinical Support [facility] Oncology [address] [place] [address] Neuro-endocrine carcinoma (HCC) Social History Tobacco Use [...] file Legal Sex Female 2:41 PM TAR ROOFER Gender Identity Not on file Sexual Orientation [...] 07/25/2023 documented in this encounter Care Teams Car Changer Relationship Specialty Start Date End Date Julio César Briseno MD PCP - General 10/01/16 Eren Cr MD Referring Physician Medical Oncology 11/25/18 Yohana Bowen MD Radiation Oncologist Radiation Oncology 11/25/18 Alejo Mi MD [address] [place] [address] Referring Physician Nephrology 03/07/23 documented as of this encounter
--- OUTSIDE RECORDS SUMMARY | 2024-06-26 01:56 | XMS_ITS | Encounter Summary ---
Author Organization [facility] Address [address] [place] [address] Phone Care Team Providers Care Vp Strategy Name Role Phone Julio César Briseno MD Primary Care Provider [phone] Eren Cr MD Unavailable [phone] Yohana Bowen MD Unavailable Alejo Mi MD Unavailable [phone] Reason for Visit * Reason Comments OP Infusion Patient here for nor mal saline infusion. Encounter Details Date Type Department Care Team (Late st Contact Info) Description 07/17/2023 3:00 PM WEIGHER AND GRADER Infusion [facility] Oncology [facility] Advanced Medicine 7th [place] [phone] Dehydration (Primary Dx); Neuroendocrine carcinoma (HCC); Malignant [...] on file Legal Sex Female 2:41 PM WEIGHER AND GRADER Gender Identity Not on file Sexual Orientation Straight 02/19/2021 9: 29 AM CDT Occupation Industry Job Start Date Job End Date retired Not on file Not on file Not on file documented as of this encounter Last Filed Vital Signs Vital Sign Reading Time Taken Comments Blood Pressure 138/82 07/17/2023 2:51 PM WEIGHER AND GRADER Pulse 98 07/17/2023 2:51 PM WEIGHER AND GRADER Temperature 36.6 ??C (97.9 ??F) 07/17/2023 2:51 PM CS T Respiratory Rate 18 07/17/2023 2:51 PM WEIGHER AND GRADER Oxygen Saturation 97% 07/17/2023 2:51 PM WEIGHER AND GRADER Inhaled Oxygen Concentration - - Weight 78.4 kg (172 lb 12.8 oz) 07/17/2023 2:51 PM WEIGHER AND GRADER Height - - Body Mass Index 30.61 06/11/2023 3:18 PM WEIGHER AND GRADER documented in this encounter Nursing Notes * Giovana Lund, [place] - 07/17/2023 3:00 PM CST Oncology Nursing Note [facility] Lashirley Chung is a 72 y.o. [...] Ambulatory Accompanied by: Family Discharged To: Home HER AND GRADER HER AND GRADER documented in this encounter Plan of Treatment [...] to 3 most recent administrations Medication Order [facility] Action Action Date Dose Rate Site ondansetron (ZOFRAN) injection 8 mg 8 mg, intravenous, Administer over 2 Minutes, Once as needed, nausea, vomiting, Starting on Sat07/17/23 at 1636, For 1 doseIndications:Hypophospha temia Given 07/17/2023 4:54 PM WEIGHER AND GRADER 8 mg sodium chloride 0.9% bolus 1,000 mL 1,000 mL, intravenous, at 500 mL/hr, Administer over 2 Hours, Once, On Sat07/17/23 at 1530, For 1 doseIndications:Neuroendocr ine carcinoma (HCC),Dehydration New Bag 07/17/2023 2:55 PM WEIGHER AND GRADER 1,000 mL 500 mL/hr documented in this [...] 07/17/2023 documented in this encounter Care Teams Vp Strategy Relationship Specialty Start Date End Date Julio César Briseno MD PCP - General 10/01/16 Eren Cr MD Referring Physician Medical Oncology 11/25/18 Yohana Bowen MD Radiation Oncologist Radiation Oncology 11/25/18 Alejo Mi MD [address] [address] Referring Physician Nephrology 03/07/23 documented as of this encounter
--- OUTSIDE RECORDS SUMMARY | 2024-06-26 01:56 | XMS_ITS | Encounter Summary ---
Author Organization [facility] Address [address] [place] [address] Phone Care Team Providers Care Tree Warden Name Role Phone Julio César Briseno MD Primary Care Provider Eren Cr MD Unavailable [phone] Yohana Bowen MD Unavailable Alejo Mi MD Unavailable [phone] Encounter Details Date Type Department Care Team (Latest Contact Info) Description 06/24/2023 11:00 AM AIRCRAFT REFUELLER Procedure visit [facility] Otolaryngology [facility]. [facility], [address] [place] [address] Mixed conductive and sensorineural hearing [...] file Legal Sex Female 2:41 PM AIRCRAFT REFUELLER Gender Identity Not on file Sexual Orientation [...] for results. Medical history was obtained by certified medical records coder and reviewed. Results were reviewed with the patient by physician today. Procedures RAFT REFUELLER documented in this encounter Plan of Treatment Not on file documented as of this encounter Procedures Procedure Name Priority Date/Time Associated Diagnosis Comments AUDBASE RESULTS 06/24/2023 10:48 AM AIRCRAFT REFUELLER documented in this encounter Results * AUDBASE RESULTS (06/24/2023 10:48 AM AIRCRAFT REFUELLER) Provider Scanning AUDIOLOGY SERVICES ORDERABLES Final Result documented in this encounter Visit Diagnoses Diagnosis Mixed conductive and sensorineural hearing loss of right ear with restricted hearing of left ear- Primary documented in this encounter Care Teams Tree Warden Relationship Specialty Start Date End Date Julio César Briseno MD PCP - General 10/01/16 Eren Cr MD Referring Physician Medical Oncology 11/25/18 Yohana Bowen MD Radiation Oncologist Radiation Oncology 11/25/18 Alejo Mi MD [address] [address] Referring Physician Nephrology 03/07/23 documented as of this encounter
--- OUTSIDE RECORDS SUMMARY | 2024-06-26 01:56 | XMS_ITS | Encounter Summary ---
Author Organization [facility] Address [address] [place] [address] Care Team Providers Care Mentally Impaired Teacher Name Role Phone Julio César Briseno MD Primary Care Provider Eren Cr MD Unavailable [phone] Yohana Bowen MD Unavailable Alejo Mi MD Unavailable [phone] Reason for Referral * Diagnostic Imaging (Routine) - Closed Specialty Diagnoses / Procedures Referred By Contellen t Referred To Contact Diagnoses Screening mammogram, encounter for Procedures Screening Mammogram Bilateral W Seng Screening Mammogram, Self [facility] Referral ID Status Reason Start Date Expiration Date Visits Re quested Visits Authorized [id number] Closed 04/23/2023 05/22/2024 1 1 SAWYER Reason for Visit * Diagnostic Imaging (Routine) - Closed Specialty Diagnoses / Procedures Referred By Contac t Referred To Contact Diagnoses Screening mammogram, encounter for Procedures Screening Mammogram Bilateral W Seng Screening Mammogram, Self [facility] Referral ID Status Reason Start Date Expiration Date Visits Re quested Visits Authorized [id number] Closed 04/23/2023 05/22/2024 1 1 Encounter Details Date Type Department Care Team (Latest Contact Info) Description 06/13/2023 1:02 PM LOG SAWYER - 06/13/2023 11:59 PM LOG SAWYER Hospital Encounter [facility] Breast [facility] [address] [place] [address] Screening mammogram, encounter for Discharge Disposition: Discharge [...] file Legal Sex Female 2:41 PM LOG SAWYER Gender Identity Not on file Sexual [...] by mouth nightly 0.9 % sodium chloride ([facility] sodium chloride 0.9%) injectionIndicat ions:line care Infuse 10 mL into a venous catheter once a week On saturday 4 0.9 % sodium chloride (sodium chloride 0.9%) 0.9% infusion 05/22/2023 4 ascorbic acid, vitamin C, 500 mg capsuleIndicatio ns:supplement Take 1 tablet by mouth wire chief before breakfast 07/04/2016 4 clotrimazole-bet amethasone (LOTRISONE) cream Apply 1 Application topically daily as needed (rash) 4 coenzyme X75-nmeogor E 100-5 mg-unit capsuleIndicatio ns:supplement Take 1 tablet by mouth wire chief before breakfast 4 diphenoxylate-at ropine (LOMOTIL) [...] every -Heparin to flush 4 INV-[facility] cabozantinib/maris cebo (2017-08-122/A02 1602) 20 mg tabletIndication s:cancer study Take 1 tablet (20 mg total) by mouth nightly Take on an empty stomach (no food for 2 hours before and 1 hour after each dose).?? Avoid Jas's Wort, grapefruit products and [place] oranges while on treatment. placed on hold 09/26/22 for covid 01/29/2022 4 levothyroxine (SYNTHROID) 88 mcg tabletIndication s:Hypothyroidism due to medication Take 1 tablet (88 mcg total) by mouth wire chief before breakfast 90 tablet 1 10/12/2022 4 [...] Read Routine (OP Routine) 06/13/2023 2:01 PM LOG SAWYER Screening mammogram, encounter for documented in this encounter Results * Screening Mammogram Bilateral W Seng (06/13/2023 2:01 PM LOG SAWYER) Anatomical Region Laterality Modality Breast Bilateral Mammography Narrative 06/14/2023 12:40 PM LOG SAWYER Mammogram Technique: Bilateral Digital Breast Tomosynthesis, Bilateral C-view 2D Screening mammogram. ??Views obtained: ??bilateral craniocaudal and bilateral mediolateral oblique. ??Computer Aided Detection was performed. Mammogram Findings: The present examination has been compared to prior imaging studies performed at [facility] on 12/21/2019, 01/23/2021 and 04/02/2022. There [...] compared to prior imaging studies performed at [facility] on 12/21/2019, 01/23/2021 and 04/02/2022. There [...] for documented in this encounter Care Teams Mentally Impaired Teacher Relationship Specialty Start Date End Date Julio César Briseno MD PCP - General 10/01/16 Eren Cr MD Referring Physician Medical Oncology 11/25/18 Yohana Bowen MD Radiation Oncologist Radiation Oncology 11/25/18 Alejo Mi MD [address] [address] Referring Physician Nephrology 03/07/23 documented as of this encounter
--- OUTSIDE RECORDS SUMMARY | 2024-06-26 01:56 | XMS_ITS | Encounter Summary ---
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) [...] on file Legal Sex Female 2:41 PM OSTEOPATHIC MEDICINE TEACHER Gender Identity Not on file Sexual Orientation Straight 02/19/2021 9: 29 AM CDT Occupation Industry Job Start Date Job End Date retired Not on file Not on file Not on file documented as of this encounter Last Filed Vital Signs Vital Sign Reading Time Taken Comments Blood Pressure 135/78 05/28/2023 11:37 AM OSTEOPATHIC MEDICINE TEACHER Pulse 88 05/28/2023 11:37 AM OSTEOPATHIC MEDICINE TEACHER Temperature 36.6 ??C (97.8 ??F) 05/28/2023 11:[address] Respiratory Rate 17 05/28/2023 11:37 AM OSTEOPATHIC MEDICINE TEACHER Oxygen Saturation 100% 05/28/2023 11:37 AM OSTEOPATHIC MEDICINE TEACHER Inhaled Oxygen Concentration - - Weight 78 kg (172 lb) 05/28/2023 11:37 AM OSTEOPATHIC MEDICINE TEACHER Height - - Body Mass Index 31.46 [...] time, she also underwent right colectomy in [facility] OR by Dr. Greyson Reeves. [...] No rashes over exposed skin. NEURO: A&Ox4, passenger service representative grossly intact by conversation, moving all [...] assessment: 07/12/22 [facility] No change in treatment plan Cosigned by Eren Cr MD at 06/10/2023 1:53 PM OSTEOPATHIC MEDICINE TEACHER OPATHIC MEDICINE TEACHER OPATHIC MEDICINE TEACHER documented in this encounter Plan of Treatment Not on file documented as of this encounter Results * Protein / creatinine ratio, urine, random (06/27/2023 1:30 PM OSTEOPATHIC MEDICINE TEACHER) Protein, ur, quant 5.5 mg/dL [facility] Comment: Interpretive Data No reference range established. Current interpretive data was last revised 2018. Creatinine Ur 79.8 mg/dL [facility] Comment: Interpretive Data No reference range established. Current interpretive data was last revised 2018. Protein/creatinin e ratio 68.9 0.0 - 180.0 mg/g CR [facility] Urine 06/27/2023 1:30 PM OSTEOPATHIC MEDICINE TEACHER 06/27/2023 3:42 PM OSTEOPATHIC MEDICINE TEACHER us Eren Cr MD LAB URINE ORDERABLES Final Re sult [facility] Department [place] [address] * (ABNORMAL) Chromogranin A (06/27/2023 10:04 AM OSTEOPATHIC MEDICINE TEACHER) Chromogranin A 1997(H) <93 ng/mL [facility] Comment: [...] a homogeneous time-resolved immunofluorescent assay manufactured by 99tests and performed on the BRAH[employer] Kryptor Compact Plus. ? Values obtained with different assay methods or kits may be different and cannot be used interchangeably. ? Test results cannot be interpreted as absolute evidence for the presence or absence of malignant disease. Test Performed by: [facility] [address] [place] [address] Lockstitch Cup Setter: Immanuel Novak M.D. Ph.D.; CLIA# [id number] Blood 06/27/2023 10:0 4 AM OSTEOPATHIC MEDICINE TEACHER 06/27/2023 11:28 AM OSTEOPATHIC MEDICINE TEACHER Eren Cr MD LAB BLOOD ORDERABLES Final Re sult [facility] Department [place] [address] * (ABNORMAL) Comprehensive metabolic panel (06/27/2023 10:04 AM OSTEOPATHIC MEDICINE TEACHER) [facility] Sodium 140 135 - 145 mmol/L [facility] Comment:Testing performed by : [facility], [address] [place] [address] Potassium, pl 3.7 3.3 - 4.9 mmol/L [facility] Chloride 109 97 - 110 mmol/L [facility] CO2 27 22 - 32 mmol/L [facility] Anion gap 4 2 - 15 mmol/L [facility] BUN 11 6 - 25 mg/dL [facility] Creatinine 1.20(H) 0.60 - 1.10 mg/dL [facility] Glucose 129 70 - 199 mg/dL [facility] Comment: Interpretive Data Fasting glucose [...] Calcium 9.5 8.5 - 10.3 mg/dL [facility] Bilirubin, total 0.5 0.1 - 1.2 mg/dL [facility] Protein, pl 6.0(L) 6.5 - 8.5 g/dL [facility] Albumin 4.0 3.5 - 5.0 g/dL [facility] Alk phos 57 40 - 130 Units/L [facility] ALT 25 7 - 45 Units/L [facility] AST 35 10 - 45 Units/L [facility] Blood 06/27/2023 10:0 4 AM OSTEOPATHIC MEDICINE TEACHER 06/27/2023 10:06 AM OSTEOPATHIC MEDICINE TEACHER Eren Cr MD LAB BLOOD ORDERABLES Final Re sult [facility] Department [place] [address] * (ABNORMAL) CBC with auto differential (06/27/2023 10:04 AM OSTEOPATHIC MEDICINE TEACHER) [facility] WBC 2.8(L) 3.8 - 9.9 K/cumm [facility] Comment:Testing performed by : [address] [address] Hgb 11.2(L) 11.9 - 15.5 g/dL [facility] Comment:Testing performed by : [address] [address] Hct 34.1(L) 35.6 - 45.5 % [facility] Comment:Testing performed by : [address] [address] Plt 84(L) 150 - 400 K/cumm [facility] Comment:Testing performed by : [address] [address] MPV 10.5 9.1 - 12.3 fL [facility] RBC 3.42(L) 3.90 - 5.20 M/cumm [facility] MCV 99.7(H) 81.3 - 96.4 fL [facility] MCH 32.7 27.1 - 33.3 pg [facility] MCHC 32.8 32.3 - 35.7 g/dL [facility] RDW CV 14.4 11.1 - 14.9 % [facility] RDW SD 51.8(H) 35.7 - 48.1 fL [facility] NRBC abs 0.00 0.00 - 0.01 K/cumm [facility] Blood 06/27/2023 10:0 4 AM OSTEOPATHIC MEDICINE TEACHER 06/27/2023 10:06 AM OSTEOPATHIC MEDICINE TEACHER Eren Cr MD LAB BLOOD ORDERABLES Edited R esult - Final Performing Organization Address [facility]/ZIP Co de Phone Number [facility] Department [place] [address] * (ABNORMAL) Vitamin D 25 hydroxy (06/27/2023 10:04 AM OSTEOPATHIC MEDICINE TEACHER) Pathologist [facility] Vitamin D 25-OH 16(L) 30 - 80 ng/mL [facility] Blood 06/27/2023 10:0 4 AM OSTEOPATHIC MEDICINE TEACHER 06/27/2023 11:37 AM OSTEOPATHIC MEDICINE TEACHER Eren Cr MD LAB BLOOD ORDERABLES Final Re sult Performing Organization Address [facility] Co de Phone Number [facility] [place] [address] * (ABNORMAL) Phosphorus (06/27/2023 10:04 AM OSTEOPATHIC MEDICINE TEACHER) Phosphorus, pl 2.0(L) 2.3 - 4.5 mg/dL [facility] Comment:Testing performed by : [facility], [address] [place] [address] Blood 06/27/2023 10:0 4 AM OSTEOPATHIC MEDICINE TEACHER 06/27/2023 10:06 AM OSTEOPATHIC MEDICINE TEACHER Eren Cr MD LAB BLOOD ORDERABLES Final Re sult Performing Organization Address City/[facility]/ZIP Co de Phone Number [facility] Department [place] [address] * (ABNORMAL) Lipid panel (06/27/2023 10:04 AM OSTEOPATHIC MEDICINE TEACHER) Cholesterol 152 30 - 199 mg/dL [facility] Comment: Interpretive Data Ages < [...] revised on 2018. Triglycerides 150(H) <=149 mg/dL [facility] Comment: Interpretive Data Ages < or = [...] revised on 2018. HDL 62 >=40 mg/dL [facility] Comment: Interpretive [...] on 2018. LDL, calculated 60 <=129 mg/dL [facility] Comment: [...] revised on 2018. Non-HDL Cholesterol 90 mg/dL [facility] Comment: Interpretive [...] last revised on 2018. Chol/HDL ratio 2 [facility] Blood 06/27/2023 10:0 4 AM OSTEOPATHIC MEDICINE TEACHER 06/27/2023 11:37 AM OSTEOPATHIC MEDICINE TEACHER Eren Cr MD LAB BLOOD ORDERABLES Final Re sult Performing Organization Address [facility]/ZIP Co de Phone Number [place], [place] [id number] * (ABNORMAL) TSH (06/27/2023 10:04 AM OSTEOPATHIC MEDICINE TEACHER) Thyroid Stimulating Hormone 5.88(H) 0.30 - 4.20 mcIUnit/mL [facility] Blood 06/27/2023 10:0 4 AM OSTEOPATHIC MEDICINE TEACHER 06/27/2023 11:37 AM OSTEOPATHIC MEDICINE TEACHER Result [facility] Eren Cr MD LAB BLOOD ORDERABLES Final Re sult Performing Organization Address [facility] Co de Phone Number [facility] [place], [place] [phone] * Magnesium (06/27/2023 10:04 AM OSTEOPATHIC MEDICINE TEACHER) Magnesium 1.5 1.4 - 2.5 mg/dL [facility] Comment:Testing performed by : [facility], [address] [place] [address] Blood 06/27/2023 10:0 4 AM OSTEOPATHIC MEDICINE TEACHER 06/27/2023 10:06 AM OSTEOPATHIC MEDICINE TEACHER Eren Cr MD LAB BLOOD ORDERABLES Final Re sult Performing Organization Address [facility] Co de Phone Number [facility] Laboratories [place], [place] [phone] * (ABNORMAL) Chromogranin A (05/28/2023 2:10 PM OSTEOPATHIC MEDICINE TEACHER) Chromogranin A 1434(H) <93 ng/mL [facility] [...] a homogeneous time-resolved immunofluorescent assay manufactured by 99tests and performed on the [employer] Midstream Kryptor Compact Plus. ? Values obtained with different assay methods or kits may be different and cannot be used interchangeably. ? Test results cannot be interpreted as absolute evidence for the presence or absence of malignant disease. Test Performed by: [place] [address] Lockstitch Cup Setter: Immanuel Novak M.D. Ph.D.; CLIA# [id number] Blood 05/28/2023 2:10 PM OSTEOPATHIC MEDICINE TEACHER 05/28/2023 4:50 PM OSTEOPATHIC MEDICINE TEACHER us Eren Cr MD LAB BLOOD ORDERABLES Final Re sult [facility] [place] [address] * (ABNORMAL) Comprehensive metabolic panel (05/28/2023 2:10 PM OSTEOPATHIC MEDICINE TEACHER) Sodium 137 135 - 145 mmol/L [facility] Comment:Testing performed by : [facility], [address] [facility] [address] Potassium, pl 4.0 3.3 - 4.9 mmol/L [facility] Chloride 105 97 - 110 mmol/L [facility] CO2 26 22 - 32 mmol/L [facility] Anion gap 6 2 - 15 mmol/L [facility] BUN 12 6 - 25 mg/dL [facility] Creatinine 1.19(H) 0.60 - 1.10 mg/dL [facility] Glucose 111 70 - 199 mg/dL [facility] Comment: Interpretive Data Fasting glucose [...] Calcium 9.7 8.5 - 10.3 mg/dL [facility] Bilirubin, total 0.6 0.1 - 1.2 mg/dL [facility] Protein, pl 6.3(L) 6.5 - 8.5 g/dL [facility] Albumin 4.1 3.5 - 5.0 g/dL [facility] Alk phos 65 40 - 130 Units/L [facility] ALT 25 7 - 45 Units/L [facility] AST 34 10 - 45 Units/L [facility] Blood 05/28/2023 2:10 PM OSTEOPATHIC MEDICINE TEACHER 05/28/2023 2:10 PM OSTEOPATHIC MEDICINE TEACHER Eren Cr MD LAB BLOOD ORDERABLES Final Re sult [facility] Department [place] [address] * (ABNORMAL) CBC with auto differential (05/28/2023 2:10 PM OSTEOPATHIC MEDICINE TEACHER) [facility] WBC 3.8 3.8 - 9.9 K/cumm [facility] Comment:Testing performed by : [facility], [address] [place] [address] Hgb 11.6(L) 11.9 - 15.5 g/dL [facility] Comment: Testing performed by: [address] [address] Interpretive Data A reference range for this assay has not been established for patients with an unknown legal sex. Please refer to the laboratory test catalog for established sex-specific reference intervals. Current interpretive data was last revised on 2023. Hct 35.3(L) 35.6 - 45.5 % [facility] Comment: Testing performed by: [facility], [address] [place] [address] Interpretive Data A reference range for this assay has not been established for patients with an unknown legal sex. Please refer to the laboratory test catalog for established sex-specific reference intervals. Current interpretive data was last revised on 2023. Plt 94(L) 150 - 400 K/cumm [facility] Comment:Testing performed by : [address] [address] MPV 10.7 9.1 - 12.3 fL [facility] RBC 3.59(L) 3.90 - 5.20 M/cumm [facility] Comment: Interpretive Data A reference range for this assay has not been established for patients with an unknown legal sex. Please refer to the laboratory test catalog for established sex-specific reference intervals. Current interpretive data was last revised on 2023. MCV 98.3(H) 81.3 - 96.4 fL [facility] MCH 32.3 27.1 - 33.3 pg [facility] MCHC 32.9 32.3 - 35.7 g/dL [facility] RDW CV 14.3 11.1 - 14.9 % [facility] RDW SD 52.0(H) 35.7 - 48.1 fL [facility] NRBC abs 0.00 0.00 - 0.01 K/cumm [facility] Blood 05/28/2023 2:10 PM OSTEOPATHIC MEDICINE TEACHER 05/28/2023 2:10 PM OSTEOPATHIC MEDICINE TEACHER Eren Cr MD LAB BLOOD ORDERABLES Final Re sult Performing Organization Address [facility]/[place] [address] * (ABNORMAL) Vitamin D 25 hydroxy (05/28/2023 2:10 PM OSTEOPATHIC MEDICINE TEACHER) Vitamin D 25-OH 19(L) 30 - 80 ng/mL [facility] Blood 05/28/2023 2:10 PM OSTEOPATHIC MEDICINE TEACHER 05/28/2023 7:03 PM OSTEOPATHIC MEDICINE TEACHER Result [facility] Eren Cr MD LAB BLOOD ORDERABLES Final Re sult Performing Organization Address [facility] Co de Phone Number [place], [place] [phone] * (ABNORMAL) Phosphorus (05/28/2023 2:10 PM OSTEOPATHIC MEDICINE TEACHER) Phosphorus, pl 1.9(L) 2.3 - 4.5 mg/dL [facility] Comment:Testing performed by : [facility], [address] [place] [address] Blood 05/28/2023 2:10 PM OSTEOPATHIC MEDICINE TEACHER 05/28/2023 2:10 PM OSTEOPATHIC MEDICINE TEACHER Result [facility] Eren Cr MD LAB BLOOD ORDERABLES Final Re sult Performing Organization Address [facility] [place] [address] * (ABNORMAL) Lipid panel (05/28/2023 2:10 PM OSTEOPATHIC MEDICINE TEACHER) Cholesterol 156 30 - 199 mg/dL [facility] on 2018. LDL, calculated 70 <=129 mg/dL [facility] Comment: [...] revised on 2018. Non-HDL Cholesterol 102 mg/dL [facility] Comment: Interpretive [...] revised on 2018. Chol/HDL ratio 3 [facility] Blood 05/28/2023 2:10 PM OSTEOPATHIC MEDICINE TEACHER 05/28/2023 7:03 PM OSTEOPATHIC MEDICINE TEACHER us Eren Cr MD LAB BLOOD ORDERABLES Final Re sult [facility] Department [place] [address] documented in this encounter Visit Diagnoses Diagnosis [...] to liver (HCC) Given 05/28/2023 3:31 PM OSTEOPATHIC MEDICINE TEACHER 30 mg Right Dorsogluteal/Butt ock documented [...] 05/09 documented in this encounter Care Teams Customer Support Engineer Relationship Specialty Start Date End Date Julio César Briseno MD PCP - General 10/01/16 Eren Cr MD Referring Physician Medical Oncology 11/25/18 Yohana Bowen MD Radiation Oncologist Radiation Oncology 11/25/18 Alejo Mi MD [address] [place] [address] Referring Physician Nephrology 03/07/23 documented as of this encounter
--- OUTSIDE RECORDS SUMMARY | 2024-06-26 01:56 | XMS_ITS | Encounter Summary ---
Author Organization [facility] Address [address] [place] [address] Phone Care Team Providers Care Strap Setter Name Role Phone Julio César Briseno MD Primary Care Provider [phone] Eren Cr MD Unavailable [phone] Yohana Bowen MD Unavailable Alejo Mi MD Unavailable [phone] Encounter Details Date Type Department Care Team (Late st Contact Info) Description 07/03/2023 3:00 PM CTRS Infusion [facility] Oncology [address] [facility] Advanced Medicine 7th [place] [address] Dehydration (Primary Dx); Neuroendocrine carcinoma [...] on file Legal Sex Female 2:41 PM CTRS Gender Identity Not on file Sexual Orientation Straight 02/19/2021 9: 29 AM CDT Occupation Industry Job Start Date Job End Date retired Not on file Not on file Not on file documented as of this encounter Last Filed Vital Signs Vital Sign Reading Time Taken Comments Blood Pressure 129/82 07/03/2023 3:08 PM CTRS Pulse 80 07/03/2023 3:08 PM CTRS Temperature 36.6 ??C (97.9 ??F) 07/03/2023 3:08 PM CS T Respiratory Rate 18 07/03/2023 3:08 PM CTRS Oxygen Saturation 97% 07/03/2023 3:08 PM CTRS Inhaled Oxygen Concentration - - Weight 77.1 kg (170 lb) 07/03/2023 3:08 PM CTRS Height - - Body Mass Index 30.11 06/11/2023 3:18 PM CTRS documented in this encounter Nursing Notes * Caroline Kam, [place] - 07/03/2023 3:00 PM CST Oncology Nursing Note [facility] ON[facility] La Chung is a [...] carcinoma (HCC),Dehydration New Bag 07/03/2023 3:15 PM CTRS 1,000 mL 500 mL/hr documented in this encounter Orders Medications Ordered That Brett ht Not Have Been Administered Count Last Ordered Date First Ordered Date sodium chloride 0.9% bolus 1,000 mL 1 07/03 Appointment Requests Count Last Ordered Date Fi rst Ordered Date ONCBCN INFUSION APPT REQUEST 1 07/03/2023 documented in this encounter Care Teams Strap Setter Relationship Specialty Start Date End Date Julio César Briseno MD PCP - General 10/01/16 Eren Cr MD Referring Physician Medical Oncology 11/25/18 Yohana Bowen MD Radiation Oncologist Radiation Oncology 11/25/18 Alejo Mi MD [address] [place] [address] Referring Physician Nephrology 03/07/23 documented as of this encounter
--- OUTSIDE RECORDS SUMMARY | 2024-06-26 01:56 | XMS_ITS | Encounter Summary ---
Author Organization [facility] Address [address] [place] [address] Phone Care Team Providers Care Tuber Operator Name Role Phone Julio César Briseno MD Primary Care Provider [phone] Eren Cr MD Unavailable [phone] Yohana Bowen MD Unavailable HolcombAlejo Ramos MD Unavailable [phone] Reason for Visit * Episode Based Medications (Routine) - Closed Specialty Diagnoses / Procedures Referred By Contac t Referred To Contact Diagnoses Neuro-endocrine carcinoma (HCC) Procedures study [id number] phase III cabozantinib Eren Cr MD [address] [place] [address] Phone: tel: fax: [facility] [address] [facility] Advanced Medicine 7th [place] [address] Phone: tel: Referral ID Status Reason Start Date Expiration Date Visits Re quested Visits Authorized [id number] Closed 06/21/2021 06/26/2024 1 99 Encounter Details Date Type Department Care Team (Latest Contact Info) Description 06/27/2023 10:00 AM SCIENCE TUTOR Clinical Support [facility] [address] [place] [address] Neuro-endocrine carcinoma (HCC) Social History Tobacco Use [...] on file Legal Sex Female 2:41 PM SCIENCE TUTOR Gender Identity Not on file Sexual [...] 06/27/2023 documented in this encounter Care Teams Tuber Operator Relationship Specialty Start Date End Date Julio César Briseno MD PCP - General 10/01/16 Eren Cr MD Referring Physician Medical Oncology 11/25/18 Yohana Bowen MD Radiation Oncologist Radiation Oncology 11/25/18 Alejo Mi MD [address] [place] [address] Referring Physician Nephrology 03/07/23 documented as of this encounter
--- OUTSIDE RECORDS SUMMARY | 2024-06-26 01:57 | XMS_ITS | Encounter Summary ---
Author Organization [facility] Healthcare Address [address] [place] [address] Care Team Providers Care Mixer Slagman Name Role Phone Julio César Briseno MD Primary Care Provider [phone] Eren Cr MD Unavailable [phone] Yohana Bowen MD Unavailable Alejo Mi MD Unavailable [phone] Encounter Details Date Type Department Care Team (Late st Contact Info) Description 05/22/2023 12:15 PM SPORTS PHYSIOLOGIST Home Care Visit [facility] [place] [address] [address] [place] [id number] Willem Sung, RN SN HOME VISIT Social [...] file Legal Sex Female 2:41 PM SPORTS PHYSIOLOGIST Gender Identity Not on file Sexual Orientation Straight 02/19/2021 9: 29 AM CDT Occupation Industry Job Start Date Job End Date retired Not on file Not on file Not on file documented as of this encounter Last Filed Vital Signs Vital Sign Reading Time Taken Comments Blood Pressure 136/82 05/22/2023 10:10 AM SPORTS PHYSIOLOGIST Pulse 64 05/22/2023 10:10 AM SPORTS PHYSIOLOGIST Temperature 36.3 ??C (97.3 ??F) 05/22/2023 10:[address] Respiratory Rate 16 05/22/2023 10:10 AM SPORTS PHYSIOLOGIST Oxygen Saturation 100% 05/22/2023 10:10 AM SPORTS PHYSIOLOGIST Inhaled Oxygen Concentration - - Weight 77.1 kg (170 lb) 05/22/2023 10:10 AM SPORTS PHYSIOLOGIST Height - - Body Mass Index 31.09 03/29/2023 1:00 PM CDT documented in this encounter Miscellaneous Notes * Home Health Plan for Next Visit - Willem Sung RN - 05/22/2023 9:53 AM CST Reason for today's visit: Assessment, port access. Discuss plan of care with patient/caregiver. Discharge planning ongoing. Plan for next visit: Assessment, port access. TS PHYSIOLOGIST documented in this encounter Plan of Treatment [...] line careIndications:line care Given 05/22/2023 10:15 AM SPORTS PHYSIOLOGIST 10 mL sodium chloride 0.9 % solution 1,000 mL, intravenous, Weekly, First dose on Lydia 05/23/23 at 2230, Patient to infuse 1000mL of Normal Saline via CADD Coreas pump set at 300mL/Hr once weekly.- Saturday, Indications: hydrationIndications:hydration Given 05/22/2023 10:20 AM SPORTS PHYSIOLOGIST 1,000 mL documented in this encounter Home [...] home health visit Disciplines: SN, PT, OT, RECREATION THERAPY AIDE, WEB SERVICES 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, Skilled Disciplines Monitor patient's vital signs every [...] during episode of care Description: Home medical scribe to measure vital signs during every home [...] noted. documented in this encounter Care Teams Mixer Slagman Relationship Specialty Start Date End Date Julio César Briseno MD PCP - General 10/01/16 Eren Cr MD Referring Physician Medical Oncology 11/25/18 Yohana Bowen MD Radiation Oncologist Radiation Oncology 11/25/18 Alejo Mi MD [id number] [place] [address] Referring Physician Nephrology 03/07/23 documented as of this encounter
--- OUTSIDE RECORDS SUMMARY | 2024-06-26 01:57 | XMS_ITS | Encounter Summary ---
Author Organization [facility] Home Care Servic es Address [address] [place] [address] Phone Care Team Providers Care Landscape Photographer Name Role Phone Julio César Briseno MD Primary Care Provider [phone] Eren Cr MD Unavailable [phone] Yohana Bowen MD Unavailable Alejo Mi MD Unavailable [phone] Encounter Details Date Type Department Care Team (Late st Contact Info) Description 04/03/2023 12:00 PM CDT Home Care Visit [facility] [address] [place] [address] Luciano Howard, RN SN HOME [...] file Legal Sex Female 2:41 PM ROTARY DRIER OPERATOR Gender Identity Not on file Sexual [...] Dose Rate Site 0.9 % sodium chloride ([facility] sodium chloride 0.9%) injection 10 [...] home health visit Disciplines: SN, PT, OT, BACKEND TESTER, SAP SD ANALYST, Skilled Disciplines Monitor patient's vital signs every [...] visit during episode of care Description: Home nurse clinician to measure vital signs during every [...] any problems with iv catheter or iv heavy media operator pt verb good understanding. has agency 24 [...] signs of infection Completed reviewed good handwashing, speech therapist technician with all aspects of iv admin, [...] Scheduled documented in this encounter Care Teams Landscape Photographer Relationship Specialty Start Date End Date Julio César Briseno MD PCP - General 10/01/16 Eren Cr MD Referring Physician Medical Oncology 11/25/18 Yohana Bowen MD Radiation Oncologist Radiation Oncology 11/25/18 Alejo Mi MD [address] [place] [address] Referring Physician Nephrology 03/07/23 documented as of this encounter
--- OUTSIDE RECORDS SUMMARY | 2024-06-26 01:57 | XMS_ITS | Encounter Summary ---
Author Organization [facility] Healthcare Address [address] [place] [address] Care Team Providers Care Database Technician Name Role Phone Julio César Briseno MD Primary Care Provider [phone] Eren Cr MD Unavailable [phone] Yohana Bowen MD Unavailable Alejo Mi MD Unavailable [phone] Encounter Details Date Type Department Care Team (Latest Contact Info) Description 05/08/2023 8:45 AM CDT Home Care Visit [facility] [place] [address] [address] [place] [id number] Sherlyn Orozco RN CUTOV SBO SN NON [...] file Legal Sex Female 2:41 PM CYLINDER PRESS FEEDER Gender Identity Not on file Sexual [...] Dose Rate Site 0.9 % sodium chloride ([facility] sodium chloride 0.9%) injection 10 mL, [...] Visit Type -SN Non-OASIS Rec ert Discipline -Long Term Problems Problem Description Start Date Status Goals Interventions Medications Disciplines: Long Term Management of IV Medications 05/08/2023 Active - 1 problem intervention scheduled/documen omar in this visit Safety concerns Disciplines: Long Term Safety needs related to infusion administration 05/08/2023 Active - 1 problem intervention scheduled/documen omar in this visit Learning/Teachin g Needs - IV Therapy Disciplines: Long Term Teaching and learning needs for performing home IV therapy 05/08/2023 Active - 6 problem interventions scheduled/documen omar in this visit Monitor patient's vital signs every home health visit Disciplines: SN, PT, OT, CORK INSULATION INSTALLER, INSURANCE JOB TITLES, Skilled Disciplines Monitor patient's vital signs every [...] visit during episode of care Description: Home obstetrics tech to measure vital signs during every home [...] documented in this encounter Care Teams Database Technician Relationship Specialty Start Date End Date Julio César Briseno MD PCP - General 10/01/16 Eren Cr MD Referring Physician Medical Oncology 11/25/18 Yohana Bowen MD Radiation Oncologist Radiation Oncology 11/25/18 Alejo Mi MD [address] [address] Referring Physician Nephrology 03/07/23 documented as of this encounter
--- OUTSIDE RECORDS SUMMARY | 2024-06-26 01:57 | XMS_ITS | Encounter Summary ---
Author Organization [facility] Address [address] [place] [address] Phone Care Team Providers Care Director Of Web Marketing Name Role Phone Julio César Briseno MD Primary Care Provider [phone] Eren Cr MD Unavailable [phone] Yohana Bowen MD Unavailable Alejo Mi MD Unavailable [phone] Reason for Visit * Reason Comments Post-op Encounter Details Date Type Department Care Team (Late st Contact Info) Description 03/25/2023 2:30 PM CDT Office Visit [facility] Otolaryngology [address] [facility], [address] [place] [address] Nasim Rojas MD [facility] DEPT OTOLARYNGOLOGY, [address] [place] [address] Conductive hearing loss of right [...] on file Legal Sex Female 2:41 PM TRANSPLANT RN Gender Identity Not on file Sexual [...] of care as documented. Nasim Rojas M.D. Pc Analyst, Otology and Neurotology Department of Otolaryngology [facility] [phone] documented in this encounter Plan of Treatment Not on file documented as of this encounter Visit Diagnoses Diagnosis Conductive hearing loss of right ear with unrestricted hearing of left ear- Primary Chronic atticoantral suppurative otitis media, right ear documented in this encounter Care Teams Director Of Web Marketing Relationship Specialty Start Date End Date Julio César Briseno MD PCP - General 10/01/16 Eren Cr MD Referring Physician Medical Oncology 11/25/18 Yohana Bowen MD Radiation Oncologist Radiation Oncology 11/25/18 Alejo Mi MD [address] [address] Referring Physician Nephrology 03/07/23 documented as of this encounter
--- OUTSIDE RECORDS SUMMARY | 2024-06-26 01:57 | XMS_ITS | Encounter Summary ---
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) Procedures CT chest abdomen pelvis with contrast Eren Cr MD [address] [place] [address] Phone: tel: fax: [address] [address] Referral ID Status Reason Start Date Expiration Date Visits Re quested Visits Authorized [id number] Closed 05/02/2023 05/31/2024 1 1 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) Procedures AR OCTREOTIDE INJECTION, DEPOT Octreotide 28 Day Cycles - Carcinoid Eren Cr MD [address] [facility] [address] [place] [address] Phone: tel: fax: [facility] [address] [place] [phone] Phone: tel: fax: Referral ID Status Reason Start Date Expiration Date V isits Requested Visits Authorized [id number] Authorized 11/28/2017 02/05/2025 1 150 Encounter Details Date Type Department Care Team (Late st Contact Info) Description 05/02/2023 12:00 PM CDT Office Visit [facility] Oncology [address] [place] [address] Billie Raymundo NP [address] [facility] [place] [phone] 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 [...] file Legal Sex Female 2:41 PM HEAD GREENSKEEPER Gender Identity Not on file Sexual Orientation [...] time, she also underwent right colectomy in [facility] [place] by Dr. Greyson Reeves. [...] watery eyes. Improved now this afternoon. Her wastewater treatment plant chemist is monitoring her thyroid function tests. Patient notes she may be referred to an mandrel press hand. She continues to have bruising to her [...] bilateral fore arms, scattered petechiae. NEURO: A&Ox4, slitter creaser slotter helper grossly intact by conversation, moving all extremities [...] 14:32 Tumor Markers Chromogranin A <93 ng/mL [phone] [id number] RADIOGRAPHIC/DIAGNOSTIC REVIEW: CT chest abdomen pelvis [...] Results * (ABNORMAL) Phosphorus (05/28/2023 11:15 AM HEAD GREENSKEEPER) Pathologist [facility] Phosphorus, pl 2.1(L) 2.3 - 4.5 mg/dL [facility] Comment:Testing performed by : [address] [address] Blood 05/28/2023 11:1 5 AM HEAD GREENSKEEPER 05/28/2023 11:17 AM HEAD GREENSKEEPER us Eren Cr MD LAB BLOOD ORDERABLES Final Re sult [facility] Department [place] [address] * Magnesium (05/28/2023 11:15 AM HEAD GREENSKEEPER) [facility] Magnesium 1.6 1.4 - 2.5 mg/dL [facility] Comment:Testing performed by : [address], [place] [address] Blood 05/28/2023 11:1 5 AM HEAD GREENSKEEPER 05/28/2023 11:17 AM HEAD GREENSKEEPER Eren Cr MD LAB BLOOD ORDERABLES Final Re sult [facility] Department [place] [address] * (ABNORMAL) Comprehensive metabolic panel (05/28/2023 11:15 AM HEAD GREENSKEEPER) Sodium 138 135 - 145 mmol/L [facility] Comment:Testing performed by : [address] [address] Potassium, pl 4.0 3.3 - 4.9 mmol/L [facility] Chloride 108 97 - 110 mmol/L [facility] CO2 24 22 - 32 mmol/L [facility] Anion gap 6 2 - 15 mmol/L [facility] BUN 12 6 - 25 mg/dL [facility] Creatinine 1.19(H) 0.60 - 1.10 mg/dL [facility] Glucose 66(L) 70 - 199 mg/dL [facility] [...] 2022. Calcium 9.5 8.5 - 10.3 mg/dL [facility] Bilirubin, total 0.6 0.1 - 1.2 mg/dL [facility] Protein, pl 6.2(L) 6.5 - 8.5 g/dL [facility] Albumin 4.0 3.5 - 5.0 g/dL [facility] Alk phos 63 40 - 130 Units/L [facility] ALT 23 7 - 45 Units/L [facility] AST 36 10 - 45 Units/L [facility] Blood 05/28/2023 11:1 5 AM HEAD GREENSKEEPER 05/28/2023 11:17 AM HEAD GREENSKEEPER Eren Cr MD LAB BLOOD ORDERABLES Final Re sult [facility] [place] [address] * (ABNORMAL) CBC with auto differential (05/28/2023 11:15 AM HEAD GREENSKEEPER) [facility] WBC 3.6(L) 3.8 - 9.9 K/cumm [facility] Comment:Testing performed by : [address] [address] Hgb 11.3(L) 11.9 - 15.5 g/dL [facility] Comment: Testing performed by: [address] [address] Interpretive Data A reference range for this assay has not been established for patients with an unknown legal sex. Please refer to the laboratory test catalog for established sex-specific reference intervals. Current interpretive data was last revised on 2023. Hct 34.5(L) 35.6 - 45.5 % [facility] Comment: Testing performed by: [address] [address] Interpretive Data A reference range for this assay has not been established for patients with an unknown legal sex. Please refer to the laboratory test catalog for established sex-specific reference intervals. Current interpretive data was last revised on 2023. Plt 94(L) 150 - 400 K/cumm [facility] Comment:Testing performed by : [address] [address] MPV 11.0 9.1 - 12.3 fL [facility] RBC 3.51(L) 3.90 - 5.20 M/cumm [facility] Comment: Interpretive Data A reference range for this assay has not been established for patients with an unknown legal sex. Please refer to the laboratory test catalog for established sex-specific reference intervals. Current interpretive data was last revised on 2023. MCV 98.3(H) 81.3 - 96.4 fL [facility] MCH 32.2 27.1 - 33.3 pg [facility] MCHC 32.8 32.3 - 35.7 g/dL [facility] RDW CV 14.4 11.1 - 14.9 % [facility] RDW SD 52.1(H) 35.7 - 48.1 fL [facility] NRBC abs 0.00 0.00 - 0.01 K/cumm [facility] Blood 05/28/2023 11:1 5 AM HEAD GREENSKEEPER 05/28/2023 11:17 AM HEAD GREENSKEEPER us Eren Cr MD LAB BLOOD ORDERABLES Final Re sult [facility] Department [place] [address] * CT chest abdomen pelvis with contrast (05/24/2023 3:47 PM HEAD GREENSKEEPER) Anatomical Region Laterality Modality Body N/A Computed Tomogra phy 05/24/2023 4:18 PM HEAD GREENSKEEPER Impressions 05/24/2023 4:18 PM HEAD GREENSKEEPER 1. ??No significant change in hepatic and peritoneal metastases. 2. ??Stable right supraclavicular lymph node. 3. ??No evidence of disease progression. Electronically signed by: Waylon Robin MD Narrative 05/24/2023 4:18 PM HEAD GREENSKEEPER EXAMINATION: ??Computed tomography of the chest, abdomen [...] 23 documented in this encounter Care Teams Hat Blocker Relationship Specialty Start Date End Date Julio César Briseno MD PCP - General 10/01/16 Eren Cr MD Referring Physician Medical Oncology 11/25/18 Yohana Bowen MD Radiation Oncologist Radiation Oncology 11/25/18 Alejo Mi MD [address] [place] [address] Referring Physician Nephrology 03/07/23 documented as of this encounter
--- OUTSIDE RECORDS SUMMARY | 2024-06-26 01:57 | XMS_ITS | Encounter Summary ---
Author Organization [facility] Address [address] [place] [address] Phone Care Team Providers Care Regional Account Executive Name Role Phone Julio César Briseno MD Primary Care Provider [phone] Eren Cr MD Unavailable [phone] Yohana Bowen MD Unavailable Alejo Mi MD Unavailable [phone] Encounter Details Date Type Department Care Team (Late st Contact Info) Description 03/26/2023 Orders Only [facility] Oncology [address] [place] [address] Yoana Murray [facility] Social History Tobacco Use Types Packs/Day Years [...] on file Legal Sex Female 2:41 PM LICENSE ISSUER Gender Identity Not on file Sexual Orientation Straight 02/19/2021 9: 29 AM CDT Occupation Industry Job Start Date Job End Date retired Not on file Not on file Not on file documented as of this encounter Plan of Treatment Not on file documented as of this encounter Visit Diagnoses Not on filedocumented in this encounter Care Teams Regional Account Executive Relationship Specialty Start Date End Date Julio César Briseno MD PCP - General 10/01/16 Eren Cr MD Referring Physician Medical Oncology 11/25/18 Yohana Bowen MD Radiation Oncologist Radiation Oncology 11/25/18 Alejo Mi MD [address] [address] Referring Physician Nephrology 03/07/23 documented as of this encounter
--- OUTSIDE RECORDS SUMMARY | 2024-06-26 01:57 | XMS_ITS | Encounter Summary ---
Author Organization [facility] Address [address] [place] [address] Phone Care Team Providers Care Still Cleaner Tube Name Role Phone Julio César Briseno MD Primary Care Provider Eren Cr MD Unavailable [phone] Yohana Bowen MD Unavailable Alejo Mi MD Unavailable [phone] Encounter Details Date Type Department Care Team (Late st Contact Info) Description 05/02/2023 Orders Only [facility] Oncology [address] [place] [address] Eren Cr MD [address] [place] [address] 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 [...] on file Legal Sex Female 2:41 PM CHANCERY CLERK Gender Identity Not on file Sexual Orientation Straight 02/19/2021 9: 29 AM CDT Occupation Industry Job Start Date Job End Date retired Not on file Not on file Not on file documented as of this encounter Plan of Treatment Not on file documented as of this encounter Results * T4, free (05/02/2023 12:12 PM CDT) Free T4 1.41 0.90 - 1.70 ng/dL [facility] Blood 05/02/2023 12:1 2 PM CDT 05/02/2023 2:06 PM CDT us Eren Cr MD LAB BLOOD ORDERABLES Final Re sult Performing Organization Address [facility] Co de Phone Number [facility] One [facility] Department [place] [address] * TSH (05/02/2023 12:12 PM CDT) Thyroid Stimulating Hormone 1.28 0.30 - 4.20 mcIUnit/mL [facility] Blood 05/02/2023 12:1 2 PM CDT 05/02/2023 2:06 PM CDT Eren Cr MD LAB BLOOD ORDERABLES Final Re sult [facility] Department [place] [address] documented in this encounter Visit Diagnoses Diagnosis Malignant neoplasm metastatic to liver (HCC)- 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
--- OUTSIDE RECORDS SUMMARY | 2024-06-26 01:57 | XMS_ITS | Encounter Summary ---
Author Organization [facility] Home Care Servic es Address [address] [place] [address] Phone Care Team Providers Care Combine Mechanic Name Role Phone Julio César Briseno MD Primary Care Provider [phone] Eren Cr MD Unavailable [phone] Yohana Bowen MD Unavailable Alejo Mi MD Unavailable [phone] Encounter Details Date Type Department Care Team (Late st Contact Info) Description 03/27/2023 8:00 AM CDT Home Care Visit [facility] Health [address] [place] [address] Willem Sung, RN SN HOME VISIT Social [...] file Legal Sex Female 2:41 PM REVENUE TAX SPECIALIST Gender Identity Not on file Sexual [...] Dose Rate Site 0.9 % sodium chloride ([facility] sodium chloride 0.9%) injection 10 [...] home health visit Disciplines: SN, PT, OT, FARMWORKER ANIMAL, GRINDER OPERATOR SURFACE TOOL, Skilled Disciplines Monitor patient's vital signs every [...] visit during episode of care Description: Home wash driller to measure vital signs during every home [...] Scheduled documented in this encounter Care Teams Combine Mechanic Relationship Specialty Start Date End Date Julio César Briseno MD PCP - General 10/01/16 Eren Cr MD Referring Physician Medical Oncology 11/25/18 Yohana Bowen MD Radiation Oncologist Radiation Oncology 11/25/18 Alejo Mi MD [address] [address] Referring Physician Nephrology 03/07/23 documented as of this encounter
--- OUTSIDE RECORDS SUMMARY | 2024-06-26 01:57 | XMS_ITS | Encounter Summary ---
Author Organization [facility] Address [address] [place] [address] Phone Care Team Providers Care Button Station Worker Name Role Phone Julio César Briseno MD Primary Care Provider [phone] Eren Cr MD Unavailable [phone] Yohana Bowen MD Unavailable BerkeleyAlejo Ramos MD Unavailable [phone] Reason for Visit * Episode Based Medications (Routine) - Closed Specialty Diagnoses / Procedures Referred By Contac t Referred To Contact Diagnoses Neuro-endocrine carcinoma (HCC) Procedures study [id number] phase III cabozantinib Eren Cr MD [address] [place] [address] Phone: tel: fax: [facility] [address] [facility] 7th [place] [address] Phone: tel: Referral ID Status Reason Start Date Expiration Date Visits Re quested Visits Authorized [id number] Closed 06/21/2021 06/26/2024 1 99 Encounter Details Date Type Department Care Team (Latest Contact Info) Description 04/04/2023 3:30 PM CDT Research Med Pick-Up/CTRU [employer] [facility] Oncology [address] [place] [address] Neuro-endocrine carcinoma (HCC) (Primary Dx) Social History [...] file Legal Sex Female 2:41 PM AUTOMOTIVE ALIGNMENT SPECIALIST Gender Identity Not on file Sexual [...] Ordered Date First Ordered Date [facility] cabozantinib (/[id number]) tablet 20 mg 1 04/04/2023 Nursing Count Last Ordered Date First Orde red Date ONCBCN CLINICAL PHARMACIST REVIEW 1 023 ONCBCN PROVIDER COMMUNICATION 10 04/04/20 23 ONCBCN STUDY COMMUNICATION 1 04/04/2023 ONCBCN TREATMENT PARAMETERS 1 04/04/2023 Appointment Requests Count Last Ordered Date Fi rst Ordered Date ONCBCN TAKE HOME STUDY DRUG APPT 1 04/04/20 documented in this encounter Care Teams Button Station Worker Relationship Specialty Start Date End Date Julio César Briseno MD PCP - General 10/01/16 Eren Cr MD Referring Physician Medical Oncology 11/25/18 Yohana Bowen MD Radiation Oncologist Radiation Oncology 11/25/18 Alejo Mi MD [address] [place] [address] Referring Physician Nephrology 03/07/23 documented as of this encounter
--- OUTSIDE RECORDS SUMMARY | 2024-06-26 01:57 | XMS_ITS | Encounter Summary ---
Author Organization [facility] Address [address] [place] [address] Care Team Providers Care Lay Out And Detail Drafter Name Role Phone Julio César Briseno MD Primary Care Provider [phone] Eren Cr MD Unavailable [phone] Yohnaa Bowen MD Unavailable Alejo Mi MD Unavailable [phone] Encounter Details Date Type Department Care Team (Latest Contact Info) Description 04/02/2023 3:21 PM CDT - 04/02/2023 11:59 PM CDT Hospital Encounter [facility] ([facility]) [address] [place] [id number] Hypothyroidism, unspecified type Discharge Disposition: Discharge to [...] file 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 Gender Identity Not on file Sexual [...] nightly 0.9 % sodium chloride ([facility] sodium chloride 0.9%) injectionIndication s:line care Infuse 10 mL into a venous catheter once a week On saturday06/20/20 24 amLODIPine (NORVASC) 5 mg tabletIndications:h ypertension Take 0.5 tablets (2.5 mg total) by mouth nightly 07/27/2022 06/11/20 23 ascorbic acid, vitamin C, 500 mg capsuleIndications: supplement Take 1 tablet by mouth riveting machine operator tape control before breakfast 07/04/2016 06/20/20 24 ciprofloxacin-dexAM ETHasone (CIPRODEX) otic suspension Administer 4 drops into the right ear 2 (two) times a day Begin 1 week post op 7.5 mL 3 02/05/2023 06/11/20 23 clotrimazole-betame thasone (LOTRISONE) cream Apply 1 Application topically daily as needed (rash) 06/20/20 24 coenzyme J69-[id number] E 100-5 mg-unit capsuleIndications: supplement Take 1 tablet by mouth riveting machine operator tape control before breakfast 06/20/20 24 diphenoxylate-atrop ine (LOMOTIL) [...] -Heparin to flush 06/20/20 24 HYDROcodone-acetami nophen ([place]) 5-325 mg per tabletIndications:P ain Take 1 tablet by mouth every 6 (six) hours as needed for pain 15 tablet 02/05/2023 05/24/20 23 [facility] cabozantinib/placeb o (2018-02-122/[id number]) 20 mg tabletIndications:c ancer study Take 1 tablet (20 mg total) by mouth nightly Take on an empty stomach (no food for 2 hours before and 1 hour after each dose).?? Avoid Jas's Wort, grapefruit products and Wayne oranges while on treatment. 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 Take 1 tablet (88 mcg total) by mouth riveting machine operator tape control before breakfast 90 tablet 1 10/12/2022 09/12/19 [...] 3:45 PM CDT) TSIG <1.0 <=1.3 [facility] Comment: Test Performed by: [id number] [place] [address] Mat Cleaning Machine Operator: Immanuel Novak M.D. Ph.D.; CLIA# [id number] Blood 03/29/2023 3:45 PM CDT 03/29/2023 4:58 PM CDT us Leila Gaytan MD LAB BLOOD ORDERABLES Final R esult [facility] Department [place] [address] * Thyroid peroxidase antibody (TPO) (03/29/2023 3:45 PM CDT) Anti Thyroid Peroxidase <30 <=34 units/mL [facility] Comment: ATPO Interpretive Data Results may be up to 28% higher in patients receiving Itraconazole. Current interpretive data was last revised 2020. Blood 03/29/2023 3:45 PM CDT 03/29/2023 4:07 PM CDT Leila Gaytan MD LAB BLOOD ORDERABLES Final R esult Performing Organization Address [facility] Co de Phone Number [facility] [place] [address] * (ABNORMAL) TSH (03/29/2023 3:45 PM CDT) Thyroid Stimulating Hormone 8.98(H) 0.30 - 4.20 mcIUnit/mL [facility] Blood 03/29/2023 3:45 PM CDT 03/29/2023 4:07 PM CDT Leila Gaytan MD LAB BLOOD ORDERABLES Final R esult Performing Organization Address [facility] Co de Phone Number [facility] [place] [address] * T4, free (03/29/2023 3:45 PM CDT) Free T4 1.03 0.90 - 1.70 ng/dL [facility] Blood 03/29/2023 3:45 PM CDT 03/29/2023 4:07 PM CDT Leila Gaytan MD LAB BLOOD ORDERABLES Final R esult Performing Organization Address [facility] [place] [address] documented in this encounter Visit Diagnoses Diagnosis Hypothyroidism, unspecified type documented in this encounter Care Teams Lay Out And Detail Drafter Relationship Specialty Start Date End Date Julio César Briseno MD PCP - General 10/01/16 Eren Cr MD Referring Physician Medical Oncology 11/25/18 Yohana Bowen MD Radiation Oncologist Radiation Oncology 11/25/18 Alejo Mi MD [address] [address] Referring Physician Nephrology 03/07/23 documented as of this encounter
--- OUTSIDE RECORDS SUMMARY | 2024-06-26 01:57 | XMS_ITS | Encounter Summary ---
Author Organization [facility] [employer] [facility] Address [address] [place] [address] Phone Care Team Providers Care Hedge Fund Principal Name Role Phone Julio César rBiseno MD Primary Care Provider [phone] Eren Cr MD Unavailable [phone] Yohana Bowen MD Unavailable Alejo Mi MD Unavailable [phone] Encounter Details Date Type Department Care Team (Late st Contact Info) Description 03/29/2023 2:45 PM CDT Clinical Support [facility] Oncology Critical [facility] hospital[facility] 7th [place] [address] [place] [address] Social History Tobacco Use Types [...] file 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 Gender Identity Not on file Sexual Orientation Straight 02/19/2021 9: 29 AM CDT Occupation Industry Job Start Date Job End Date retired Not on file Not on file Not on file documented as of this encounter Plan of Treatment Not on file documented as of this encounter Visit Diagnoses Not on filedocumented in this encounter Care Teams Hedge Fund Principal Relationship Specialty Start Date End Date Julio César Briseno MD PCP - General 10/01/16 Eren Cr MD Referring Physician Medical Oncology 11/25/18 Yhoana Bowen MD Radiation Oncologist Radiation Oncology 11/25/18 Alejo Mi MD [address] [address] Referring Physician Nephrology 03/07/23 documented as of this encounter
--- OUTSIDE RECORDS SUMMARY | 2024-06-26 01:57 | XMS_ITS | Encounter Summary ---
Author Organization [facility] Address [address] [place] [address] Phone Care Team Providers Care Development Representative Name Role Phone Julio César Briseno MD Primary Care Provider [phone] Eren Cr MD Unavailable [phone] Yohana Bowen MD Unavailable Alejo Mi MD Unavailable [phone] Reason for Visit * Reason Comments Chronic Fatigue Encounter Details Date Type Department Care Team (Late st Contact Info) Description 05/01/2023 11:45 AM CDT Home Care Visit [facility] [address] [place] [address] Sherlyn Orozco RN SN HOME VISIT Social [...] on file 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 Gender Identity Not on file Sexual [...] Dose Rate Site 0.9 % sodium chloride ([facility] sodium chloride 0.9%) injection 10 mL, [...] Shelter Safety needs related to infusion administration 11/14/2022 Active - 1 problem intervention scheduled/documen omar in this visit Learning/Teachin g Needs - IV Therapy Disciplines: Shelter Teaching and learning needs for performing home IV therapy 11/14/2022 Active - 6 problem interventions scheduled/documen omar in this visit Monitor patient's vital signs every home health visit Disciplines: SN, PT, OT, MACHINE DRILLER, CHEF FRENCH, Skilled Disciplines Monitor patient's vital signs every [...] visit during episode of care Description: Home audio director to measure vital signs during every [...] Scheduled documented in this encounter Care Teams Development Representative Relationship Specialty Start Date End Date Julio César Briseno MD PCP - General 10/01/16 Eren Cr MD Referring Physician Medical Oncology 11/25/18 Yohana Bowen MD Radiation Oncologist Radiation Oncology 11/25/18 Alejo Mi MD [address] [place] [address] Referring Physician Nephrology 03/07/23 documented as of this encounter
--- OUTSIDE RECORDS SUMMARY | 2024-06-26 01:57 | XMS_ITS | Encounter Summary ---
Author Organization [facility] Address [address] [place] [address] Phone Care Team Providers Care Dispatch Officer Name Role Phone Julio César Briseno MD Primary Care Provider [phone] Eren Cr MD Unavailable [phone] Yohana Bowen MD Unavailable Alejo Mi MD Unavailable [phone] Reason for Visit * Reason Comments Skin Cancer Screening Encounter Details Date Type Department Care Team (Late st Contact Info) Description 05/24/2023 12:45 PM ASSEMBLY INSPECTOR HELPER Office Visit [facility] D[facility] [address] [facility] [address] [place] [address] Po Newberry MD PhD [address] [place] [address] [id number] Solar purpura (CMS/HCC) (HCC) (Primary Dx); Family [...] on file Legal Sex Female 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 Electronically Signed: Po Newberry MD, PhD MBLY INSPECTOR HELPER documented in this encounter Plan of [...] nausea or vomiting Other 10/18/2022 05/24/2023 HYDROcodone-acetaminophen ([place]) 5-325 mg per tabletIndications:Pain Take 1 tablet by mouth every 6 (six) hours as needed for pain Other 02/05/2023 05/24/2023 documented as of this encounter Care Teams Dispatch Officer Relationship Specialty Start Date End Date Julio César Briseno MD PCP - General 10/01/16 Eren Cr MD Referring Physician Medical Oncology 11/25/18 Yohana Bowen MD Radiation Oncologist Radiation Oncology 11/25/18 Alejo Mi MD [address] [place] [address] Referring Physician Nephrology 03/07/23 documented as of this encounter
--- OUTSIDE RECORDS SUMMARY | 2024-06-26 01:57 | XMS_ITS | Encounter Summary ---
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) Procedures DC OCTREOTIDE INJECTION, DEPOT Octreotide 28 Day Cycles - Carcinoid Eren Cr MD [address] [facility] [address] [place] [address] Phone: tel: fax: [facility] [address] [address] Phone: tel: fax: Referral ID Status Reason Start Date Expiration Date V isits Requested Visits Authorized [id number] Authorized 11/28/2017 02/05/2025 1 150 Encounter Details Date Type Department Care Team (Latest Contact Info) Description 05/02/2023 11:30 AM CDT Clinical Support [facility] Oncology [address] [place] [address] Neuro-endocrine carcinoma (HCC) (Primary Dx); Neuroendocrine carcinoma [...] on file 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
--- OUTSIDE RECORDS SUMMARY | 2024-06-26 01:57 | XMS_ITS | Encounter Summary ---
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 Gender Identity Not on file Sexual [...] nightly 0.9 % sodium chloride ([facility] sodium chloride 0.9%) injectionIndication s:line care Infuse 10 mL into a venous catheter once a week On saturday06/20/20 24 amLODIPine (NORVASC) 5 mg tabletIndications:h ypertension Take 0.5 tablets (2.5 mg total) by mouth nightly 07/27/2022 06/11/20 23 ascorbic acid, vitamin C, 500 mg capsuleIndications: supplement Take 1 tablet by mouth glass carrier before breakfast 07/04/2016 06/20/20 24 ciprofloxacin-dexAM ETHasone (CIPRODEX) otic suspension Administer 4 drops into the right ear 2 (two) times a day Begin 1 week post op 7.5 mL 3 02/05/2023 06/11/20 23 clotrimazole-betame thasone (LOTRISONE) cream Apply 1 Application topically daily as needed (rash) 06/20/20 24 coenzyme I75-uadwlge E 100-5 mg-unit capsuleIndications: supplement Take 1 tablet by mouth glass carrier before breakfast 06/20/20 24 diphenoxylate-atrop ine (LOMOTIL) [...] -Heparin to flush 06/20/20 24 HYDROcodone-acetami nophen ([place]) 5-325 mg per tabletIndications:P ain Take 1 tablet by mouth every 6 (six) hours as needed for pain 15 tablet 02/05/2023 05/24/20 23 INV-[id number] cabozantinib/placeb o (/[id number]) 20 mg tabletIndications:c ancer study Take 1 tablet (20 mg total) by mouth nightly Take on an empty stomach (no food for 2 hours before and 1 hour after each dose).?? Avoid Jas's Wort, grapefruit products and [place] oranges while on treatment. 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 Take 1 tablet (88 mcg total) by mouth glass carrier before breakfast 90 tablet 1 10/12/2022 09/12/19 [...] eGFR (04/04/2023 2:32 PM CDT) Pathologist [facility] eGFR 47(L) 90 - 130 mL/min/1. 73 [...] sult [facility] [place] [address] * (ABNORMAL) Differential, auto (04/04/2023 2:32 PM CDT) Pathologist [facility] Neutrophil abs 2.0 1.7 - 6.5 K/cumm JASON BLACK Comment:Testing performed by : [facility], [address] [facility] [address] Imm gran abs 0.0 0.0 - 0.1 K/cumm [facility] Lymphocyte abs 0.4(L) 0.8 - 3.3 K/cumm [facility] Monocyte abs 0.5 0.2 - 0.8 K/cumm [facility] Eosinophil abs 0.2 0.0 - 0.5 K/cumm [facility] Basophil abs 0.0 0.0 - 0.1 K/cumm [facility] Neutrophil pct 65.7 % [facility] Comment: Consistent with previous result Interpretive Data Percent cell count reference ranges are not reported, since discordance with absolute values may lead to misinterpretation of CBC data. Current Interpretive Data was last revised on 2017. Imm gran pct 0.3 % [facility] Comment: Interpretive Data Percent cell count reference ranges are not reported, since discordance with absolute values may lead to misinterpretation of CBC data. Current Interpretive Data was last revised on 2017. Lymphocyte pct 13.4 % [facility] Comment: Interpretive Data Percent cell count reference ranges are not reported, since discordance with absolute values may lead to misinterpretation of CBC data. Current Interpretive Data was last revised on 2017. Monocyte pct 15.0 % [facility] Comment: Interpretive Data Percent cell count reference ranges are not reported, since discordance with absolute values may lead to misinterpretation of CBC data. Current Interpretive Data was last revised on 2017. Eosinophil pct 4.9 % [facility] Comment: Interpretive Data Percent cell count reference ranges are not reported, since discordance with absolute values may lead to misinterpretation of CBC data. Current Interpretive Data was last revised on 2017. Basophil pct 0.7 % [facility] Comment: Interpretive Data Percent cell count reference ranges are not reported, since discordance with absolute values may lead to misinterpretation of CBC data. Current Interpretive Data was last revised on 2017. Blood 04/04/2023 2:32 PM CDT 04/04/2023 2:32 PM CDT Eren Cr MD LAB BLOOD ORDERABLES Final Re sult Performing Organization Address [facility] Co de Phone Number [place], [place] [id number] * Magnesium (04/04/2023 2:32 PM CDT) Magnesium 1.4 1.4 - 2.5 mg/dL [facility] Comment:Testing performed by : [facility], [address] [place] [address] Blood 04/04/2023 2:32 PM CDT 04/04/2023 2:32 PM CDT Eren Cr MD LAB BLOOD ORDERABLES Final Re sult Performing Organization Address [facility] [place] [address] * TSH (04/04/2023 2:32 PM CDT) Thyroid Stimulating Hormone 3.70 0.30 - 4.20 mcIUnit/mL [facility] Blood 04/04/2023 2:32 PM CDT 04/04/2023 6:38 PM CDT us Eren Cr MD LAB BLOOD ORDERABLES Final Re sult Performing Organization Address [facility] [place] [address] * (ABNORMAL) Lipid panel (04/04/2023 2:32 PM CDT) Cholesterol 147 30 - 199 mg/dL [facility] Comment: Interpretive Data Ages < or [...] on 2018. Triglycerides 206(H) <=149 mg/dL [facility] Comment: [...] on 2018. HDL 62 >=40 mg/dL [facility] Comment: [...] ORDERABLES Final Re sult [facility] BL[facility] Department [place] [address] * Phosphorus (04/04/2023 2:32 PM CDT) [facility] Phosphorus, pl 2.9 2.3 - 4.5 mg/dL [facility] Comment:Testing performed by : [facility], [address] [place] [address] Blood 04/04/2023 2:32 PM CDT 04/04/2023 2:32 PM CDT Eren Cr MD LAB BLOOD ORDERABLES Final Re sult [facility] [place] [address] * (ABNORMAL) Vitamin D 25 hydroxy (04/04/2023 2:32 PM CDT) [facility] Vitamin D 25-OH 17(L) 30 - 80 ng/mL [facility] Blood 04/04/2023 2:32 PM CDT 04/04/2023 6:38 PM CDT Eren Cr MD LAB BLOOD ORDERABLES Final Re sult [facility] [place] [address] * (ABNORMAL) CBC with auto differential (04/04/2023 2:32 PM CDT) [facility] WBC 3.1(L) 3.8 - 9.9 K/cumm [facility] Comment:Testing performed by : [facility], [address] [place] [address] Hgb 10.8(L) 11.9 - 15.5 g/dL [facility] Comment:Testing performed by : [facility], [address] [place] [address] Hct 32.5(L) 35.6 - 45.5 % [facility] Comment:Testing performed by : [facility], [address] [place] [address] Plt 88(L) 150 - 400 K/cumm [facility] Comment:Testing performed by : [address] [address] MPV 10.4 9.1 - 12.[address] [facility] RBC 3.26(L) 3.90 - 5.20 M/cumm [facility] MCV 99.7(H) 81.3 - 96.[address] [facility] MCH 33.1 27.1 - 33.[address] [facility] MCHC 33.2 32.3 - 35.7 g/dL [facility] RDW CV 14.6 11.1 - 14.9 % [facility] RDW SD 52.6(H) 35.7 - 48.[address] [facility] NRBC abs 0.00 0.00 - 0.01 K/cumm [facility] Blood 04/04/2023 2:32 PM CDT 04/04/2023 2:32 PM CDT Eren Cr MD LAB BLOOD ORDERABLES Final Re sult [facility] Department [place] [address] * (ABNORMAL) Comprehensive metabolic panel (04/04/2023 2:32 PM CDT) [facility] Sodium 139 135 - 145 mmol/L [facility] Comment:Testing performed by : [address] [address] Potassium, pl 4.0 3.3 - 4.9 mmol/L [facility] Chloride 108 97 - 110 mmol/L [facility] CO2 24 22 - 32 mmol/L [facility] Anion gap 7 2 - 15 mmol/L [facility] BUN 16 6 - 25 mg/dL [facility] Creatinine 1.22(H) 0.60 - 1.10 mg/dL [facility] Glucose 106 70 - 199 mg/dL [facility] [...] 2022. Calcium 10.3 8.5 - 10.3 mg/dL [facility] Bilirubin, total 0.5 0.1 - 1.2 mg/dL [facility] Protein, pl 6.2(L) 6.5 - 8.5 g/dL [facility] Albumin 4.0 3.5 - 5.0 g/dL [facility] Alk phos 61 40 - 130 Units/L [facility] ALT 24 7 - 45 Units/L [facility] AST 33 10 - 45 Units/L [facility] Blood 04/04/2023 2:32 PM CDT 04/04/2023 2:32 PM CDT us Eren Cr MD LAB BLOOD ORDERABLES Final Re sult [facility] Department [place] [address] * (ABNORMAL) Chromogranin A (04/04/2023 2:32 PM CDT) Chromogranin A 1687(H) <93 ng/mL [facility] Comment: Impaired renal or hepatic function or treatment with proton pump inhibitors may result in artifactual elevations of Chromogranin A. ADDITIONAL INFORMATION This test was developed and its performance characteristics determined by [facility] in a manner consistent with CLIA requirements. [...] a homogeneous time-resolved immunofluorescent assay manufactured by TM and performed on the Yattos Kryptor Compact Plus. ? Values obtained with different assay methods or kits may be different and cannot be used interchangeably. ? Test results cannot be interpreted as absolute evidence for the presence or absence of malignant disease. Test Performed by: [facility] [address] [place] [address] [place] Gauger: Immanuel Novak M.D. Ph.D.; CLIA# [id number] Blood 04/04/2023 2:32 PM CDT 04/04/2023 7:20 PM CDT us Eren Cr MD LAB BLOOD ORDERABLES Final Re sult 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
--- OUTSIDE RECORDS SUMMARY | 2024-06-26 01:57 | XMS_ITS | Encounter Summary ---
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 documented in this encounter Care Teams Wage Conciliator Relationship Specialty Start Date End Date Julio César Briseno MD PCP - General 10/01/16 Eren Cr MD Referring Physician Medical Oncology 11/25/18 Yohana Bowen MD Radiation Oncologist Radiation Oncology 11/25/18 Alejo Mi MD [address] [place] [address] Referring Physician Nephrology 03/07/23 documented as of this encounter
--- OUTSIDE RECORDS SUMMARY | 2024-06-26 01:57 | XMS_ITS | Encounter Summary ---
Author Organization 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) Procedures [place] OCTREOTIDE INJECTION, DEPOT Octreotide 28 Day Cycles - Carcinoid Eren Cr MD [address] [facility] [address] [place] [address] Phone: tel: fax: [address] [address] Phone: tel: fax: Referral ID Status Reason Start Date Expiration Date V isits Requested Visits Authorized [id number] Authorized 11/28/2017 02/05/2025 1 150 Encounter Details Date Type Department Care Team (Late st Contact Info) Description 05/02/2023 12:45 PM CDT Infusion [facility] Oncology [address] [place] [address] 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 [...] file Legal Sex Female 2:41 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 Gender Identity Not on file Sexual Orientation Straight 02/19/2021 9: 29 AM CDT Occupation Industry Job Start Date Job End Date retired Not on file Not on file Not on file documented as of this encounter Nursing Notes * Dorota Gallardo, RN - 05/02/2023 12:45 PM CDT Oncology Nursing Note [facility] ONCOLOGY [...] First Orde red Date ONCBCN NURSING COMMUNICATION [id number] 1 1 PHYSICIAN COMMUNICATION ORDER 1 05/02/2023 Appointment Requests Count Last Ordered Date Fi rst Ordered Date ONCBCN INJECTION APPOINTMENT REQUEST 1 04/08 documented in this encounter Care Teams Security Police Relationship Specialty Start Date End Date Julio César Briseno MD PCP - General 10/01/16 Eren Cr MD Referring Physician Medical Oncology 11/25/18 Yohana Bowen MD Radiation Oncologist Radiation Oncology 11/25/18 Alejo Mi MD [address] [place] [address] Referring Physician Nephrology 03/07/23 documented as of this encounter
--- OUTSIDE RECORDS SUMMARY | 2024-06-26 01:57 | XMS_ITS | Encounter Summary ---
Author Organization [facility] Healthcare Address [address] [place] [address] Care Team Providers Care Wood Scrap Handler Name Role Phone Julio César Briseno MD Primary Care Provider [phone] Eren Cr MD Unavailable [phone] Yohana Bowen MD Unavailable Alejo Mi MD Unavailable [phone] Encounter Details Date Type Department Care Team (Late st Contact Info) Description 05/15/2023 7:00 AM DEVELOPMENT PLANNER Home Care Visit [facility] [address] [address] [address] [place] [id number] Mj Lima, [place] SN HOME VISIT Social [...] file Legal Sex Female 2:41 PM DEVELOPMENT PLANNER Gender Identity Not on file Sexual Orientation Straight 02/19/2021 9: 29 AM CDT Occupation Industry Job Start Date Job End Date retired Not on file Not on file Not on file documented as of this encounter Last Filed Vital Signs Vital Sign Reading Time Taken Comments Blood Pressure 134/68 05/15/2023 10:00 AM DEVELOPMENT PLANNER Pulse 72 05/15/2023 10:00 AM DEVELOPMENT PLANNER Temperature 37.1 ??C (98.8 ??F) 05/15/2023 10:[address] Respiratory Rate 16 05/15/2023 10:00 AM DEVELOPMENT PLANNER Oxygen Saturation 98% 05/15/2023 10:00 AM DEVELOPMENT PLANNER Inhaled Oxygen Concentration - - Weight - - Height - - Body Mass Index - - documented in this encounter Miscellaneous Notes * Home Health Visit Narrative - Mj Lima RN - 05/15/2023 9:58 AM DEVELOPMENT PLANNER Port-a-cath access today. Pt tolerates well. All vital signs fall within acceptable parameters. Mr.and Mrs. Robertod verbalize good understanding of at-home management of their port-a-cath and good understanding of the plan of care moving forward. IVF via CADD initiated. LOPMENT PLANNER * Home Health Plan for Next Visit - Mj Lima RN - 05/15/2023 9:58 AM CST Reason for today's visit - port-a-cath access and IVF initiation Discuss plan of care with the patient Discharge planning - ongoing Plan for next visit in one week for same LOPMENT PLANNER documented in this encounter Plan of Treatment Not on file documented as of this encounter Visit Diagnoses Not on filedocumented in this encounter Administered Medications Inactive Administered Medications - up to 3 most recent administrations Medication Order MAR Action Action Date Dose Rate Site 0.9 % sodium chloride ([facility] sodium chloride 0.9%) injection 10 mL, intravenous, Weekly, First dose on Sat05/15/23 at 1345, On saturday, Indications: line careIndications:line care Given 05/15/2023 12:55 PM DEVELOPMENT PLANNER 10 mL documented in this encounter Home Health Visit - Care Plan Visit Details Visit Type -SN Home Visit Discipline -Prison Problems Problem Description Start Date Status Goals Interventions Medications Disciplines: Prison Management of IV Medications 05/08/2023 Active - 1 problem intervention scheduled/documen omar in this visit Safety concerns Disciplines: Prison Safety needs related to infusion administration 05/08/2023 Active - 1 problem intervention scheduled/documen omar in this visit Learning/Teachin g Needs - IV Therapy Disciplines: Prison Teaching and learning needs for performing home IV therapy 05/08/2023 Active - 6 problem interventions scheduled/documen omar in this visit Monitor patient's vital signs every home health visit Disciplines: SN, PT, OT, HANDSTITCHING MACHINE ARMHOLE FELLER, FERTILIZER APPLICATOR, Skilled Disciplines Monitor patient's vital signs every [...] visit during episode of care Description: Home wood miller to measure vital signs during every home [...] include good handwashing, aseptic technique as per [facility] Home Infusion Policies and Procedures, and troubleshooting/manag ement. Instruct on IV flush Description: Instruct patient/caregiver in how to perform flushing of IV line according to MD orders or protocol. Problem:Learning/Teac soco Needs - IV Therapy Completed Pt verbalizes good understanding of IV flush procedure using aseptic technique as per [facility] HH Infusion policy. Instruct Infection Prevention Description: [...] Scheduled documented in this encounter Care Teams Wood Scrap Handler Relationship Specialty Start Date End Date Julio César Briseno MD PCP - General 10/01/16 Eren Cr MD Referring Physician Medical Oncology 11/25/18 Yohana Bowen MD Radiation Oncologist Radiation Oncology 11/25/18 Alejo Mi MD [address] [address] Referring Physician Nephrology 03/07/23 documented as of this encounter
--- OUTSIDE RECORDS SUMMARY | 2024-06-26 01:57 | XMS_ITS | Encounter Summary ---
Author Organization [facility] Address [address] [place] [address] Phone Care Team Providers Care Wide Piece Goods Inspector Name Role Phone Julio César Briseno MD Primary Care Provider [phone] Eren Cr MD Unavailable [phone] Yohana Bowen MD Unavailable [place] Ramos MD Unavailable [phone] Reason for Visit * Episode Based Medications (Routine) - Closed Specialty Diagnoses / Procedures Referred By Contac t Referred To Contact Diagnoses Neuro-endocrine carcinoma (HCC) Procedures study [id number] phase III cabozantinib Eren Cr MD [address] [place] [address] Phone: tel: fax: [facility] [address] [facility] 7th [place] [address] Phone: tel: Referral ID Status Reason Start Date Expiration Date Visits Re quested Visits Authorized [id number] Closed 06/21/2021 06/26/2024 1 99 Encounter Details Date Type Department Care Team (Latest Contact Info) Description 04/04/2023 2:30 PM CDT Clinical Support [facility] Oncology [address] [place] [address] Neuro-endocrine carcinoma (HCC) Social History Tobacco Use [...] on file Legal Sex Female 2:41 PM TELEPHONE ANSWERER Gender Identity Not on file Sexual Orientation [...] 04/04/2023 documented in this encounter Care Teams Wide Piece Goods Inspector Relationship Specialty Start Date End Date Julio César Briseno MD PCP - General 10/01/16 Eren Cr MD Referring Physician Medical Oncology 11/25/18 Yohana Bowen MD Radiation Oncologist Radiation Oncology 11/25/18 Alejo Mi MD [address] [place] [address] Referring Physician Nephrology 03/07/23 documented as of this encounter
--- OUTSIDE RECORDS SUMMARY | 2024-06-26 01:57 | XMS_ITS | Encounter Summary ---
Author Organization [facility] Address [address] [place] [address] Phone Care Team Providers Care Phlebotomist Associate Name Role Phone Julio César Briseno MD Primary Care Provider [phone] Eren Cr MD Unavailable [phone] Yohana Bowen MD Unavailable Alejo Mi MD Unavailable [phone] Encounter Details Date Type Department Care Team (Late st Contact Info) Description 03/23/2023 2:00 PM CDT Home Care Visit [facility] [address] [place] [address] Nayla Julien RN SN HOME [...] file Legal Sex Female 2:41 PM 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 Plan for next visit PAC reaccess, start iv fluids, assessment documented in this encounter Plan of Treatment Not on file documented as of this encounter Visit Diagnoses Not on filedocumented in this encounter Administered Medications Inactive Administered Medications - up to 3 most recent administrations Medication Order MAR Action Action Date Dose Rate Site 0.9 % sodium chloride ([facility] sodium chloride 0.9%) injection 10 mL, [...] Fpc Safety needs related to infusion administration 11/14/2022 Active - 1 problem intervention scheduled/documen omar in this visit Learning/Teachin g Needs - IV Therapy Disciplines: Fpc Teaching and learning needs for performing home IV therapy 11/14/2022 Active - 7 problem interventions scheduled/documen omar in this visit Monitor patient's vital signs every home health visit Disciplines: SN, PT, OT, BUSINESS ENGLISH INSTRUCTOR, LAN ENGINEER, Skilled Disciplines Monitor patient's vital signs [...] visit during episode of care Description: Home fresh foods cake decorator to measure vital signs during every home [...] Scheduled documented in this encounter Care Teams Phlebotomist Associate Relationship Specialty Start Date End Date Julio César Briseno MD PCP - General 10/01/16 Eren Cr MD Referring Physician Medical Oncology 11/25/18 Yohana Bowen MD Radiation Oncologist Radiation Oncology 11/25/18 Alejo Mi MD [address] [place] [id number] Referring Physician Nephrology 03/07/23 documented as of this encounter
--- OUTSIDE RECORDS SUMMARY | 2024-06-26 01:57 | XMS_ITS | Encounter Summary ---
Author Organization [facility] Healthcare Address [address] [place] [address] Care Team Providers Care Psychiatric Nursing Aide Name Role Phone Julio César Briseno MD Primary Care Provider [phone] Eren Cr MD Unavailable [phone] Yohana Bowen MD Unavailable Alejo Mi MD Unavailable [phone] Encounter Details Date Type Department Care Team (Latest Contact Info) Description 05/02/2023 2:08 PM CDT - 05/02/2023 11:59 PM CDT Hospital Encounter [facility] [address] [place] [id number] Neuroendocrine carcinoma (HCC); Malignant neoplasm metastatic [...] on file Legal Sex Female 2:41 PM SHOT COAT TENDER Gender Identity Not on file Sexual [...] nightly 0.9 % sodium chloride ([facility] sodium chloride 0.9%) injectionIndication s:line care Infuse 10 mL into a venous catheter once a week On saturday06/20/20 24 amLODIPine (NORVASC) 5 mg tabletIndications:h ypertension Take 0.5 tablets (2.5 mg total) by mouth nightly 07/27/2022 06/11/20 23 ascorbic acid, vitamin C, 500 mg capsuleIndications: supplement Take 1 tablet by mouth carbon coater machine operator before breakfast 07/04/2016 06/20/20 24 ciprofloxacin-dexAM ETHasone (CIPRODEX) otic suspension Administer 4 drops into the right ear 2 (two) times a day Begin 1 week post op 7.5 mL 3 02/05/2023 06/11/20 23 clotrimazole-betame thasone (LOTRISONE) cream Apply 1 Application topically daily as needed (rash) 06/20/20 24 coenzyme J59-lflazvo E 100-5 mg-unit capsuleIndications: supplement Take 1 tablet by mouth carbon coater machine operator before breakfast 06/20/20 24 diphenoxylate-atrop [...] -Heparin to flush 06/20/20 24 HYDROcodone-acetami nophen ([place]) 5-325 mg per tabletIndications:P ain Take 1 tablet by mouth every 6 (six) hours as needed for pain 15 tablet 02/05/2023 05/24/20 23 [facility] cabozantinib/placeb o (/[id number]) 20 mg tabletIndications:c ancer study Take 1 tablet (20 mg total) by mouth nightly Take on an empty stomach (no food for 2 hours before and 1 hour after each dose).?? Avoid Alcalde's Wort, grapefruit products and [place] oranges while on treatment. 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 Take 1 tablet (88 mcg total) by mouth carbon coater machine operator before breakfast 90 tablet 1 [...] 2 PM CDT 05/02/2023 12:12 PM CDT Erne Cr MD LAB BLOOD ORDERABLES Final Re sult [facility] Department [place] [address] * (ABNORMAL) Differential, auto (05/02/2023 12:12 PM CDT) Neutrophil abs 2.5 1.7 - 6.5 K/cumm [facility] Comment:Testing performed by : [facility], [address] [place] [id number] Imm gran abs 0.0 0.0 - 0.1 K/cumm [facility] Lymphocyte abs 0.3(L) 0.8 - 3.3 K/cumm [facility] Monocyte abs 0.3 0.2 - 0.8 K/cumm [facility] Eosinophil abs 0.2 0.0 - 0.5 K/cumm [facility] Basophil abs 0.0 0.0 - 0.1 K/cumm [facility] Neutrophil pct 74.2 % [facility] Comment: Consistent with previous result Interpretive Data Percent cell count reference ranges are not reported, since discordance with absolute values may lead to misinterpretation of CBC data. Current Interpretive Data was last revised on 2017. Imm gran pct 0.3 % [facility] Comment: Interpretive Data Percent cell count reference ranges are not reported, since discordance with absolute values may lead to misinterpretation of CBC data. Current Interpretive Data was last revised on 2017. Lymphocyte pct 9.6 % [facility] Comment: Interpretive Data Percent cell count reference ranges are not reported, since discordance with absolute values may lead to misinterpretation of CBC data. Current Interpretive Data was last revised on 2017. Monocyte pct 10.2 % [facility] Comment: Interpretive Data Percent cell count reference ranges are not reported, since discordance with absolute values may lead to misinterpretation of CBC data. Current Interpretive Data was last revised on 2017. Eosinophil pct 4.8 % [facility] Comment: Interpretive Data Percent cell count reference ranges are not reported, since discordance with absolute values may lead to misinterpretation of CBC data. Current Interpretive Data was last revised on 2017. Basophil pct 0.9 % [facility] Comment: Interpretive Data Percent cell count reference ranges are not reported, since discordance with absolute values may lead to misinterpretation of CBC data. Current Interpretive Data was last revised on 2017. Blood 05/02/2023 12:1 2 PM CDT 05/02/2023 12:12 PM CDT Eren Cr MD LAB BLOOD ORDERABLES Final Re sult Performing Organization Address [facility] Co de Phone Number [facility] [email or web address] [address] * TSH (05/02/2023 12:12 PM CDT) Thyroid Stimulating Hormone 1.28 0.30 - 4.20 mcIUnit/mL [facility] Blood 05/02/2023 12:1 2 PM CDT 05/02/2023 2:06 PM CDT Result [facility] Eren Cr MD LAB BLOOD ORDERABLES Final Re sult Performing Organization Address [facility] Co de Phone Number [facility] [email or web address] [address] * T4, free (05/02/2023 12:12 PM CDT) Free T4 1.41 0.90 - 1.70 ng/dL [facility] Blood 05/02/2023 12:1 2 PM CDT 05/02/2023 2:06 PM CDT Eren Cr MD LAB BLOOD ORDERABLES Final Re sult Performing Organization Address City/[facility] Co de Phone Number [facility] [place] [address] * Magnesium (05/02/2023 12:12 PM CDT) Magnesium 1.4 1.4 - 2.5 mg/dL [facility] Comment:Testing performed by : [facility], [address] [place] [address] Blood 05/02/2023 12:1 2 PM CDT 05/02/2023 12:12 PM CDT us Eren Cr MD LAB BLOOD ORDERABLES Final Re sult [facility] Department [place] [address] * Lipid panel (05/02/2023 12:12 PM CDT) [...] revised on 2018. HDL 60 >=40 mg/dL [facility] Comment: Interpretive Data Ages < or = [...] on 2018. LDL, calculated 63 <=129 mg/dL [facility] Comment: Interpretive Data Ages < [...] revised on 2018. Non-HDL Cholesterol 89 mg/dL [facility] Comment: Interpretive Data Ages [...] last revised on 2018. Chol/HDL ratio 2 [facility] Blood 05/02/2023 12:1 2 PM CDT 05/02/2023 2:06 PM CDT Eren Cr MD LAB BLOOD ORDERABLES Final Re sult Performing Organization Address City/[facility]/ZIP Co de Phone Number [facility] Department of Laboratories [place], [place] [id number] * (ABNORMAL) Phosphorus (05/02/2023 12:12 PM CDT) Phosphorus, pl 1.9(L) 2.3 - 4.5 mg/dL [facility] Comment:Testing performed by : [facility], [address] [place] [address] Blood 05/02/2023 12:1 2 PM CDT 05/02/2023 12:12 PM CDT Eren Cr MD LAB BLOOD ORDERABLES Final Re sult Performing Organization Address City/[facility]/ZIP Co de Phone Number [facility] Department [place] [address] * (ABNORMAL) Vitamin D 25 hydroxy (05/02/2023 12:12 PM CDT) Pathologist [facility] Vitamin D 25-OH 17(L) 30 - 80 ng/mL [facility] Blood 05/02/2023 12:1 2 PM CDT 05/02/2023 2:06 PM CDT Eren Cr MD LAB BLOOD ORDERABLES Final Re sult [facility] Department [place] [address] * (ABNORMAL) CBC with auto differential (05/02/2023 12:12 PM CDT) [facility] WBC 3.3(L) 3.8 - 9.9 K/cumm [facility] Comment:Testing performed by : [address] [address] Hgb 10.9(L) 11.9 - 15.5 g/dL [facility] Comment: Testing performed by: [address] [address] Interpretive Data A reference range for this assay has not been established for patients with an unknown legal sex. Please refer to the laboratory test catalog for established sex-specific reference intervals. Current interpretive data was last revised on 2023. Hct 32.8(L) 35.6 - 45.5 % [facility] Comment: Testing performed by: [address] [address] Interpretive Data A reference range for this assay has not been established for patients with an unknown legal sex. Please refer to the laboratory test catalog for established sex-specific reference intervals. Current interpretive data was last revised on 2023. Plt 90(L) 150 - 400 K/cumm [facility] Comment:Testing performed by : [address] [address] MPV 10.9 9.1 - 12.3 fL [facility] RBC 3.33(L) 3.90 - 5.20 M/cumm [facility] Comment: Interpretive Data A reference range for this assay has not been established for patients with an unknown legal sex. Please refer to the laboratory test catalog for established sex-specific reference intervals. Current interpretive data was last revised on 2023. MCV 98.5(H) 81.3 - 96.4 fL [facility] MCH 32.7 27.1 - 33.3 pg [facility] MCHC 33.2 32.3 - 35.7 g/dL [facility] RDW CV 14.1 11.1 - 14.9 % [facility] RDW SD 50.5(H) 35.7 - 48.1 fL [facility] NRBC abs 0.00 0.00 - 0.01 K/cumm [facility] Blood 05/02/2023 12:1 2 PM CDT 05/02/2023 12:12 PM CDT Eren Cr MD LAB BLOOD ORDERABLES Final Re sult [facility] Department [place] [address] * (ABNORMAL) Comprehensive metabolic panel (05/02/2023 12:12 PM CDT) Sodium 138 135 - 145 mmol/L [facility] Comment:Testing performed by : [facility], [address] [place] [address] Potassium, pl 4.2 3.3 - 4.9 mmol/L [facility] Chloride 108 97 - 110 mmol/L [facility] CO2 25 22 - 32 mmol/L [facility] Anion gap 5 2 - 15 mmol/L [facility] BUN 16 6 - 25 mg/dL [facility] Creatinine 1.22(H) 0.60 - 1.10 mg/dL [facility] Glucose 121 70 - 199 mg/dL [facility] Comment: Interpretive Data Fasting glucose >/= [...] 2022. Calcium 9.7 8.5 - 10.3 mg/dL [facility] Bilirubin, total 0.6 0.1 - 1.2 mg/dL [facility] Protein, pl 6.1(L) 6.5 - 8.5 g/dL [facility] Albumin 3.9 3.5 - 5.0 g/dL [facility] Alk phos 58 40 - 130 Units/L [facility] ALT 22 7 - 45 Units/L [facility] AST 32 10 - 45 Units/L [facility] Blood 05/02/2023 12:1 2 PM CDT 05/02/2023 12:12 PM CDT us Eren Cr MD LAB BLOOD ORDERABLES Final Re sult [facility] Department [place] [address] * (ABNORMAL) Chromogranin A (05/02/2023 12:12 PM CDT) Chromogranin A 1736(H) <93 ng/mL [facility] Comment: Impaired renal or hepatic function or treatment with proton pump inhibitors may result in artifactual elevations of Chromogranin A. ADDITIONAL INFORMATION This test was developed and its performance characteristics determined by [facility] in a manner consistent with [...] a homogeneous time-resolved immunofluorescent assay manufactured by [employer] and performed on the [employer] Kryptor Compact Plus. ? Values obtained with different assay methods or kits may be different and cannot be used interchangeably. ? Test results cannot be interpreted as absolute evidence for the presence or absence of malignant disease. Test Performed by: [facility] [address] [place] [address] [employer] Administrator Developer: Immanuel Novak M.D. Ph.D.; CLIA# [id number] Blood 05/02/2023 12:1 2 PM CDT 05/02/2023 2:10 PM CDT Eren Cr MD LAB BLOOD ORDERABLES Final Re sult Performing Organization Address [facility] de Phone Number [facility] [place] [address] * Protein / creatinine ratio, urine, random (05/02/2023 12:00 PM CDT) Protein, ur, quant 10.6 mg/dL [facility] Comment: Interpretive Data No reference range established. Current interpretive data was last revised 2018. Creatinine Ur 143.1 mg/dL [facility] Comment: Interpretive Data No reference range established. Current interpretive data was last revised 2018. Protein/creatinin e ratio 74.1 0.0 - 180.0 mg/g CR [facility] Urine 05/02/2023 12:0 0 PM CDT 05/02/2023 2:06 PM CDT Eren Cr MD LAB URINE ORDERABLES Final Re sult Performing Organization Address [facility] Co de Phone Number 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
--- OUTSIDE RECORDS SUMMARY | 2024-06-26 01:57 | XMS_ITS | Encounter Summary ---
Author Organization [facility] Healthcare Address [address] [place] [address] Care Team Providers Care Table Games Floor Supervisor Name Role Phone Julio César Briseno MD Primary Care Provider [phone] Eren Cr MD Unavailable [phone] Yohana Bowen MD Unavailable Alejo Mi MD Unavailable [phone] Encounter Details Date Type Department Care Team (Latest Contact Info) Description 05/28/2023 2:40 PM PAPER REWINDER OPERATOR - 05/28/2023 11:59 PM PAPER REWINDER OPERATOR Hospital Encounter [facility] [address] [place] [id number] Neuro-endocrine carcinoma (HCC); Neuroendocrine carcinoma (HCC); [...] file Legal Sex Female 2:41 PM PAPER REWINDER OPERATOR Gender Identity Not on file Sexual [...] chloride ([facility] sodium chloride 0.9%) injectionIndicat ions:line care Infuse 10 mL into a venous catheter once a week On saturday 4 0.9 % sodium chloride (sodium chloride 0.9%) 0.9% infusion 05/22/2023 4 amLODIPine (NORVASC) 5 mg tabletIndication s:hypertension Take 0.5 tablets (2.5 mg total) by mouth nightly 07/27/2022 3 ascorbic acid, vitamin C, 500 mg capsuleIndicatio ns:supplement Take 1 tablet by mouth commercial escrow officer before breakfast 07/04/2016 4 ciprofloxacin-de xAMETHasone (CIPRODEX) otic suspension Administer 4 drops into the right ear 2 (two) times a day Begin 1 week post op 7.5 mL 3 02/05/2023 3 clotrimazole-bet amethasone (LOTRISONE) cream Apply 1 Application topically daily as needed (rash) 4 coenzyme [id number] 100-5 mg-unit capsuleIndicatio ns:supplement Take 1 tablet by mouth commercial escrow officer before breakfast 4 diphenoxylate-at ropine (LOMOTIL) 2.5-0.025 [...] dose).?? Avoid Jas's Wort, grapefruit products and [place] oranges while on treatment. 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) DIFFERENTIAL AUTO Routine 05/28/2023 2:1 0 PM PAPER REWINDER OPERATOR Neuroendocrine carcinoma (HCC) Malignant neoplasm metastatic to liver (HCC) CHROMOGRANIN A Routine 05/28/2023 2:10 PM PAPER REWINDER OPERATOR Neuroendocrine carcinoma (HCC) Malignant neoplasm metastatic to liver (HCC) CBC WITH AUTO DIFFERENTIAL Routine 05/28/2023 2:10 PM PAPER REWINDER OPERATOR 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) VITAMIN D 25 HYDROXY Routine 05/28/2023 2:10 PM PAPER REWINDER OPERATOR 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) PHOSPHORUS Routine 05/28/2023 2:10 PM PAPER REWINDER OPERATOR 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) LIPID PANEL Routine 05/28/2023 2:10 PM PAPER REWINDER OPERATOR Neuroendocrine carcinoma (HCC) Malignant neoplasm metastatic to liver (HCC) COMPREHENSIVE METABOLIC PANEL STAT 05/28/2023 2:10 PM PAPER REWINDER OPERATOR Neuroendocrine carcinoma (HCC) Malignant neoplasm metastatic to liver (HCC) URINALYSIS AND REFLEX TO MICROSCOPIC AND CULTURE Routine 05/28/2023 2:00 PM PAPER REWINDER OPERATOR Hypothyroidism due to medication Hematuria, unspecified type EGFR STAT 05/28/2023 11:15 AM PAPER REWINDER OPERATOR Neuro-endocrine carcinoma (HCC) DIFFERENTIAL AUTO STAT 05/28/2023 11: 15 AM PAPER REWINDER OPERATOR Neuro-endocrine carcinoma (HCC) CBC WITH AUTO DIFFERENTIAL STAT 05/28/2023 11:15 AM PAPER REWINDER OPERATOR Neuro-endocrine carcinoma (HCC) PHOSPHORUS STAT 05/28/2023 11:15 AM PAPER REWINDER OPERATOR Neuro-endocrine carcinoma (HCC) MAGNESIUM STAT 05/28/2023 11:15 AM PAPER REWINDER OPERATOR Neuro-endocrine carcinoma (HCC) COMPREHENSIVE METABOLIC PANEL STAT 05/28/2023 11:15 AM PAPER REWINDER OPERATOR Neuro-endocrine carcinoma (HCC) documented in this encounter Results * (ABNORMAL) eGFR (05/28/2023 2:10 PM PAPER REWINDER OPERATOR) eGFR 48(L) >=60 mL/min/1. 73 m2 [facility] [...] last reviewed 2021. Blood 05/28/2023 2:10 PM PAPER REWINDER OPERATOR 05/28/2023 2:10 PM PAPER REWINDER OPERATOR us Eren Cr MD LAB BLOOD ORDERABLES Final Re sult [facility] Department [place] [address] * (ABNORMAL) Differential, auto (05/28/2023 2:10 PM PAPER REWINDER OPERATOR) Neutrophil abs 2.6 1.7 - 6.5 K/cumm [facility] Comment:Testing performed by : [facility], [address] [facility] [id number] Imm gran abs 0.0 0.0 - 0.1 K/cumm [facility] Lymphocyte abs 0.5(L) 0.8 - 3.3 K/cumm [facility] Monocyte abs 0.6 0.2 - 0.8 K/cumm [facility] Eosinophil abs 0.2 0.0 - 0.5 K/cumm [facility] Basophil abs 0.0 0.0 - 0.1 K/cumm [facility] Neutrophil pct 67.6 % [facility] Comment: Interpretive Data Percent cell count [...] on 2017. Lymphocyte pct 12.4 % [facility] Comment: Interpretive Data Percent cell count reference ranges are not reported, since discordance with absolute values may lead to misinterpretation of CBC data. Current Interpretive Data was last revised on 2017. Monocyte pct 14.5 % [facility] Comment: Interpretive Data Percent cell count reference ranges are not reported, since discordance with absolute values may lead to misinterpretation of CBC data. Current Interpretive Data was last revised on 2017. Eosinophil pct 4.7 % [facility] Comment: Interpretive Data Percent cell count reference ranges are not reported, since discordance with absolute values may lead to misinterpretation of CBC data. Current Interpretive Data was last revised on 2017. Basophil pct 0.5 % [facility] Comment: Interpretive Data Percent cell count reference ranges are not reported, since discordance with absolute values may lead to misinterpretation of CBC data. Current Interpretive Data was last revised on 2017. Blood 05/28/2023 2:10 PM PAPER REWINDER OPERATOR 05/28/2023 2:10 PM PAPER REWINDER OPERATOR us Eren Cr MD LAB BLOOD ORDERABLES Final Re sult [facility] Department [place] [address] * (ABNORMAL) Lipid panel (05/28/2023 2:10 PM PAPER REWINDER OPERATOR) Cholesterol 156 30 - 199 mg/dL [facility] Comment: Interpretive [...] on 2018. Triglycerides 161(H) <=149 mg/dL [facility] Comment: [...] on 2018. HDL 54 >=40 mg/dL [facility] Comment: [...] 2018. LDL, calculated 70 <=129 mg/dL [facility] Comment: [...] on 2018. Non-HDL Cholesterol 102 mg/dL [facility] Comment: Interpretive [...] 3 [facility] Blood 05/28/2023 2:10 PM PAPER REWINDER OPERATOR 05/28/2023 7:03 PM PAPER REWINDER OPERATOR Eren Cr MD LAB BLOOD ORDERABLES Final Re sult Performing Organization Address [facility] Co de Phone Number [facility] Department [place] [address] * (ABNORMAL) Phosphorus (05/28/2023 2:10 PM PAPER REWINDER OPERATOR) Pathologist [facility] Phosphorus, pl 1.9(L) 2.3 - 4.5 mg/dL [facility] Comment:Testing performed by : [address] [address] Blood 05/28/2023 2:10 PM PAPER REWINDER OPERATOR 05/28/2023 2:10 PM PAPER REWINDER OPERATOR Eren Cr MD LAB BLOOD ORDERABLES Final Re sult Performing Organization Address City/State/[facility] Co de Phone Number [facility] [email or web address] [address] * (ABNORMAL) Vitamin D 25 hydroxy (05/28/2023 2:10 PM PAPER REWINDER OPERATOR) Vitamin D 25-OH 19(L) 30 - 80 ng/mL [facility] Blood 05/28/2023 2:10 PM PAPER REWINDER OPERATOR 05/28/2023 7:03 PM PAPER REWINDER OPERATOR us Eren Cr MD LAB BLOOD ORDERABLES Final Re sult [facility] Department [place] [address] * (ABNORMAL) CBC with auto differential (05/28/2023 2:10 PM PAPER REWINDER OPERATOR) [facility] WBC 3.8 3.8 - 9.9 K/cumm [facility] Comment:Testing performed by : [address] [address] Hgb 11.6(L) 11.9 - 15.5 g/dL [facility] Comment: Testing performed by: [address] [address] Interpretive Data A reference range for this assay has not been established for patients with an unknown legal sex. Please refer to the laboratory test catalog for established sex-specific reference intervals. Current interpretive data was last revised on 2023. Hct 35.3(L) 35.6 - 45.5 % [facility] Comment: Testing performed by: [address] [address] Interpretive Data A reference range for this assay has not been established for patients with an unknown legal sex. Please refer to the laboratory test catalog for established sex-specific reference intervals. Current interpretive data was last revised on 2023. Plt 94(L) 150 - 400 K/cumm [facility] Comment:Testing performed by : [address] [address] MPV 10.7 9.1 - 12.3 fL [facility] RBC 3.59(L) 3.90 - 5.20 M/cumm [facility] Comment: Interpretive Data A reference range for this assay has not been established for patients with an unknown legal sex. Please refer to the laboratory test catalog for established sex-specific reference intervals. Current interpretive data was last revised on 2023. MCV 98.3(H) 81.3 - 96.4 fL [facility] MCH 32.3 27.1 - 33.3 pg [facility] MCHC 32.9 32.3 - 35.7 g/dL [facility] RDW CV 14.3 11.1 - 14.9 % [facility] RDW SD 52.0(H) 35.7 - 48.1 fL [facility] NRBC abs 0.00 0.00 - 0.01 K/cumm [facility] Blood 05/28/2023 2:10 PM PAPER REWINDER OPERATOR 05/28/2023 2:10 PM PAPER REWINDER OPERATOR us Eren Cr MD LAB BLOOD ORDERABLES Final Re sult [facility] Department [place] [address] * (ABNORMAL) Comprehensive metabolic panel (05/28/2023 2:10 PM PAPER REWINDER OPERATOR) [facility] Sodium 137 135 - 145 mmol/L [facility] Comment:Testing performed by : [facility], [address] [place] [address] Potassium, pl 4.0 3.3 - 4.9 mmol/L [facility] Chloride 105 97 - 110 mmol/L [facility] CO2 26 22 - 32 mmol/L [facility] Anion gap 6 2 - 15 mmol/L [facility] BUN 12 6 - 25 mg/dL [facility] Creatinine 1.19(H) 0.60 - 1.10 mg/dL [facility] Glucose 111 70 - 199 mg/dL [facility] [...] 2022. Calcium 9.7 8.5 - 10.3 mg/dL [facility] Bilirubin, total 0.6 0.1 - 1.2 mg/dL [facility] Protein, pl 6.3(L) 6.5 - 8.5 g/dL [facility] Albumin 4.1 3.5 - 5.0 g/dL [facility] Alk phos 65 40 - 130 Units/L [facility] ALT 25 7 - 45 Units/L [facility] AST 34 10 - 45 Units/L [facility] Blood 05/28/2023 2:10 PM PAPER REWINDER OPERATOR 05/28/2023 2:10 PM PAPER REWINDER OPERATOR us Eren Cr MD LAB BLOOD ORDERABLES Final Re sult [facility] Department [place] [address] * (ABNORMAL) Chromogranin A (05/28/2023 2:10 PM PAPER REWINDER OPERATOR) Chromogranin A 1434(H) <93 ng/mL [facility] Comment: Impaired renal or hepatic function or treatment with proton pump inhibitors may result in artifactual elevations of Chromogranin A. ADDITIONAL INFORMATION This test was developed and its performance characteristics determined by [facility] in a manner consistent with CLIA requirements. [...] a homogeneous time-resolved immunofluorescent assay manufactured by [employer] and performed on the [employer]. ? Values obtained with different assay methods or kits may be different and cannot be used interchangeably. ? Test results cannot be interpreted as absolute evidence for the presence or absence of malignant disease. Test Performed by: [facility] [address] [place] [address] Transmitter Engineer: Immanuel Novak M.D. Ph.D.; CLIA# [id number] Blood 05/28/2023 2:10 PM PAPER REWINDER OPERATOR 05/28/2023 4:50 PM PAPER REWINDER OPERATOR us Eren Cr MD LAB BLOOD ORDERABLES Final Re sult [facility] Department [place] [address] * Urinalysis reflex to microscopic and culture Urine, clean voided (05/28/2023 2:00 PM PAPER REWINDER OPERATOR) Color, ur Yellow Yellow [facility] Clarity, ur Clear Clear [facility] Specific gravity, ur 1.021 1.003 - 1.030 [facility] pH, urine 5.5 [facility] Comment: Interpretive Data ? Urine pH is affected by diet, medications, systemic acid-base disturbances, and renal tubular function. ??pH may affect urinary stone formation. ??For example, urine pH below 6.0 may help reduce the tendency for calcium phosphate stones and pH greater than 6.0 may reduce the tendency for uric acid stone formation. Source: [facility] Current Interpretive Data was last revised on 2017 Protein, ur ql Trace Negative [facility] Glucose, ur ql Negative Negative [facility] Ketones, ur Negative Negative [facility] Bilirubin, ur Negative Negative [facility] Blood, ur Negative Negative [facility] Urobilinogen, ur <2.0 <2.0 mg/dL [facility] Nitrite, ur Negative Negative [facility] Leukocyte esterase, ur Negative Negative [facility] UA reflex comment Reflex conditions for microscopic UA and culture not met. [facility] Urine, clean voided 05/28/2023 2:00 PM PAPER REWINDER OPERATOR 05/28/2023 3:43 PM PAPER REWINDER OPERATOR us Eren Cr MD LAB MICROBIOLOGY - GENERAL OR DERABLES Final Result Performing Organization Address [facility] Co de Phone Number [facility] Department [place] [address] * (ABNORMAL) eGFR (05/28/2023 11:15 AM PAPER REWINDER OPERATOR) eGFR 48(L) >=60 mL/min/1. 73 m2 [facility] Comment: Interpretive Data Reference Interval [...] reviewed 2021. Blood 05/28/2023 11:1 5 AM PAPER REWINDER OPERATOR 05/28/2023 11:19 AM PAPER REWINDER OPERATOR us Eren Cr MD LAB BLOOD ORDERABLES Final Re sult Performing Organization Address [facility]/ZIP Co de Phone Number [facility] Department [place] [address] * (ABNORMAL) Differential, auto (05/28/2023 11:15 AM PAPER REWINDER OPERATOR) Neutrophil abs 2.3 1.7 - 6.5 K/cumm [facility] Comment:Testing performed by : [facility], [address] [facility] [address] Imm gran abs 0.0 0.0 - 0.1 K/cumm [facility] Lymphocyte abs 0.5(L) 0.8 - 3.3 K/cumm [facility] Monocyte abs 0.5 0.2 - 0.8 K/cumm [facility] Eosinophil abs 0.2 0.0 - 0.5 K/cumm [facility] Basophil abs 0.0 0.0 - 0.1 K/cumm [facility] Neutrophil pct 65.1 % [facility] Comment: Interpretive Data Percent cell count reference ranges are not reported, since discordance with absolute values may lead to misinterpretation of CBC data. Current Interpretive Data was last revised on 2017. Imm gran pct 1.1 % [facility] Comment: Interpretive Data Percent cell count reference ranges are not reported, since discordance with absolute values may lead to misinterpretation of CBC data. Current Interpretive Data was last revised on 2017. Lymphocyte pct 15.1 % [facility] Comment: Interpretive Data Percent cell count reference ranges are not reported, since discordance with absolute values may lead to misinterpretation of CBC data. Current Interpretive Data was last revised on 2017. Monocyte pct 13.1 % [facility] Comment: Interpretive Data Percent cell count reference ranges are not reported, since discordance with absolute values may lead to misinterpretation of CBC data. Current Interpretive Data was last revised on 2017. Eosinophil pct 5.0 % [facility] Comment: Interpretive Data Percent cell count reference ranges are not reported, since discordance with absolute values may lead to misinterpretation of CBC data. Current Interpretive Data was last revised on 2017. Basophil pct 0.6 % [facility] Comment: Interpretive Data Percent cell count reference ranges are not reported, since discordance with absolute values may lead to misinterpretation of CBC data. Current Interpretive Data was last revised on 2017. Blood 05/28/2023 11:1 5 AM PAPER REWINDER OPERATOR 05/28/2023 11:17 AM PAPER REWINDER OPERATOR Eren Cr MD LAB BLOOD ORDERABLES Final Re sult [facility] Department [place] [address] * (ABNORMAL) CBC with auto differential (05/28/2023 11:15 AM PAPER REWINDER OPERATOR) [facility] WBC 3.6(L) 3.8 - 9.9 K/cumm [facility] Comment:Testing performed by : [address] [address] Hgb 11.3(L) 11.9 - 15.5 g/dL [facility] Comment: Testing performed by: [address] [address] Interpretive Data A reference range for this assay has not been established for patients with an unknown legal sex. Please refer to the laboratory test catalog for established sex-specific reference intervals. Current interpretive data was last revised on 2023. Hct 34.5(L) 35.6 - 45.5 % [facility] Comment: Testing performed by: [address] [address] Interpretive Data A reference range for this assay has not been established for patients with an unknown legal sex. Please refer to the laboratory test catalog for established sex-specific reference intervals. Current interpretive data was last revised on 2023. Plt 94(L) 150 - 400 K/cumm [facility] Comment:Testing performed by : [address] [address] MPV 11.0 9.1 - 12.3 fL [facility] RBC 3.51(L) 3.90 - 5.20 M/cumm [facility] Comment: Interpretive Data A reference range for this assay has not been established for patients with an unknown legal sex. Please refer to the laboratory test catalog for established sex-specific reference intervals. Current interpretive data was last revised on 2023. MCV 98.3(H) 81.3 - 96.4 fL [facility] MCH 32.2 27.1 - 33.3 pg [facility] MCHC 32.8 32.3 - 35.7 g/dL [facility] RDW CV 14.4 11.1 - 14.9 % [facility] RDW SD 52.1(H) 35.7 - 48.1 fL [facility] NRBC abs 0.00 0.00 - 0.01 K/cumm [facility] Blood 05/28/2023 11:1 5 AM PAPER REWINDER OPERATOR 05/28/2023 11:17 AM PAPER REWINDER OPERATOR Eren Cr MD LAB BLOOD ORDERABLES Final Re sult [facility] Department [place] [address] * (ABNORMAL) Comprehensive metabolic panel (05/28/2023 11:15 AM PAPER REWINDER OPERATOR) Sodium 138 135 - 145 mmol/L [facility] Comment:Testing performed by : [facility], [address] [place] [address] Potassium, pl 4.0 3.3 - 4.9 mmol/L [facility] Chloride 108 97 - 110 mmol/L [facility] CO2 24 22 - 32 mmol/L [facility] Anion gap 6 2 - 15 mmol/L [facility] BUN 12 6 - 25 mg/dL [facility] Creatinine 1.19(H) 0.60 - 1.10 mg/dL [facility] Glucose 66(L) 70 - 199 mg/dL [facility] [...] 9.5 8.5 - 10.3 mg/dL [facility] Bilirubin, total 0.6 0.1 - 1.2 mg/dL [facility] Protein, pl 6.2(L) 6.5 - 8.5 g/dL [facility] Albumin 4.0 3.5 - 5.0 g/dL [facility] Alk phos 63 40 - 130 Units/L [facility] ALT 23 7 - 45 Units/L [facility] AST 36 10 - 45 Units/L [facility] Blood 05/28/2023 11:1 5 AM PAPER REWINDER OPERATOR 05/28/2023 11:17 AM PAPER REWINDER OPERATOR Eren Cr MD LAB BLOOD ORDERABLES Final Re sult Performing Organization Address [facility] Co de Phone Number [facility] Department [place] [address] * Magnesium (05/28/2023 11:15 AM PAPER REWINDER OPERATOR) Magnesium 1.6 1.4 - 2.5 mg/dL [facility] Comment:Testing performed by : [address] [address] Blood 05/28/2023 11:1 5 AM PAPER REWINDER OPERATOR 05/28/2023 11:17 AM PAPER REWINDER OPERATOR Eren Cr MD LAB BLOOD ORDERABLES Final Re sult Performing Organization Address [facility]/ZIP [place] [address] * (ABNORMAL) Phosphorus (05/28/2023 11:15 AM PAPER REWINDER OPERATOR) Phosphorus, pl 2.1(L) 2.3 - 4.5 mg/dL [facility] Comment:Testing performed by : [address] [place] [address] Blood 05/28/2023 11:1 5 AM PAPER REWINDER OPERATOR 05/28/2023 11:17 AM PAPER REWINDER OPERATOR Eren Cr MD LAB BLOOD ORDERABLES Final Re sult [facility] Department [place] [address] documented in this encounter Visit Diagnoses Diagnosis Neuro-endocrine carcinoma (HCC) Other malignant neoplasm of unspecified site Neuroendocrine carcinoma (HCC) Other malignant neoplasm of unspecified site 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
--- OUTSIDE RECORDS SUMMARY | 2024-06-26 01:57 | XMS_ITS | Encounter Summary ---
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) Procedures CT chest abdomen pelvis with contrast Eren Cr MD [facility] [address] [place] [address] Phone: tel: fax: [address] [address] Referral ID Status Reason Start Date Expiration Date Visits Re quested Visits Authorized [id number] Closed 05/02/2023 05/31/2024 1 1 SFER AGENT Reason for Visit * MRI/CAT/PET Scan (Routine) - Closed Specialty Diagnoses / Procedures Referred By Contac Referred To Contact Radiology Diagnoses Malignant neoplasm metastatic to 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) Procedures CT chest abdomen pelvis with contrast Eren Cr MD [address] [facility] 7A-C [address] [place] [address] Phone: tel: fax: [address] [place] [address] Referral ID Status Reason Start Date Expiration Date Visits Re quested Visits Authorized [id number] Closed 05/02/2023 05/31/2024 1 1 Encounter Details Date Type Department Care Team (Latest Contact Info) Description 05/24/2023 2:17 PM TRANSFER AGENT - 05/24/2023 11:59 PM TRANSFER AGENT Hospital Encounter [facility] [address] [place] [address] Eren Cr MD [address] [facility] 7A-C [facility] [place] [address] Malignant neoplasm metastatic to liver (HCC); Malignant [...] on file Legal Sex Female 2:41 PM TRANSFER AGENT Gender Identity Not on file Sexual [...] capsuleIndicatio ns:supplement Take 1 tablet by mouth order clerk before breakfast 07/04/2016 4 ciprofloxacin-de xAMETHasone (CIPRODEX) otic suspension Administer 4 drops into the right ear 2 (two) times a day Begin 1 week post op 7.5 mL 3 02/05/2023 3 clotrimazole-bet amethasone (LOTRISONE) cream Apply 1 Application topically daily as needed (rash) 4 coenzyme F01-xsyxctw E 100-5 mg-unit capsuleIndicatio ns:supplement Take 1 tablet by mouth order clerk before breakfast 4 diphenoxylate-at ropine (LOMOTIL) 2.5-0.025 [...] week Fluids every -Heparin to flush 4 INV-[facility] cabozantinib/maris cebo (2018-02-122/A02 1602) 20 mg tabletIndication s:cancer study Take 1 tablet (20 mg total) by mouth nightly Take on an empty stomach (no food for 2 hours before and 1 hour after each dose).?? Avoid Tonica's Wort, grapefruit products and Idalia oranges while on treatment. 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 ??No significant change in hepatic and peritoneal metastases. 2. ??Stable right supraclavicular lymph node. 3. ??No evidence of disease progression. Electronically signed by: Waylon Robin MD Narrative 05/24/2023 4:18 PM TRANSFER AGENT EXAMINATION: ??Computed tomography of the chest, abdomen [...] 1 dose Contrast Given 05/24/2023 3:42 PM TRANSFER AGENT 75 mL documented in this encounter Orders Medications Ordered That Brett ht Not Have Been Administered Count Last Ordered Date First Ordered Date ioversoL (OPTIRAY 350) syringe 100 mL 1 documented in this encounter Care Teams Fire Inspector Relationship Specialty Start Date End Date Julio César Briseno MD PCP - General 10/01/16 Eren Cr MD Referring Physician Medical Oncology 11/25/18 Yohana Bowen MD Radiation Oncologist Radiation Oncology 11/25/18 Alejo Mi MD [address] [address] Referring Physician Nephrology 03/07/23 documented as of this encounter
--- OUTSIDE RECORDS SUMMARY | 2024-06-26 01:57 | XMS_ITS | Encounter Summary ---
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 The patient is under my care, and I have authorized the services on this plan of care and will periodically review the plan. TENDER documented in this encounter Plan of Treatment Not on file documented as of this encounter Visit Diagnoses Not on filedocumented in this encounter Care Teams Cafeteria Or Lunchroom Checker Relationship Specialty Start Date End Date Julio César Briseno MD PCP - General 10/01/16 Eren Cr MD Referring Physician Medical Oncology 11/25/18 Yohana Bowen MD Radiation Oncologist Radiation Oncology 11/25/18 Alejo Mi MD [address] [address] Referring Physician Nephrology 03/07/23 documented as of this encounter
--- OUTSIDE RECORDS SUMMARY | 2024-06-26 01:57 | XMS_ITS | Encounter Summary ---
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 Plan for next [...] home health visit Disciplines: SN, PT, OT, IT SUPPORT ENGINEER, COMPLIANCE OFFICER, Skilled Disciplines Monitor patient's vital signs every [...] visit during episode of care Description: Home microstrategy developer to measure vital signs during every home [...] Scheduled documented in this encounter Care Teams Gauntlet Pairer Relationship Specialty Start Date End Date Julio César Briseno MD PCP - General 10/01/16 Eren Cr MD Referring Physician Medical Oncology 11/25/18 Yohana Bowen MD Radiation Oncologist Radiation Oncology 11/25/18 Alejo Mi MD [address] [address] Referring Physician Nephrology 03/07/23 documented as of this encounter
--- OUTSIDE RECORDS SUMMARY | 2024-06-26 01:57 | XMS_ITS | Encounter Summary ---
Author Organization [facility] Address [address] [place] [address] Phone Care Team Providers Care House Piping Inspector Name Role Phone Julio César Briseno MD Primary Care Provider [phone] Eren Cr MD Unavailable [phone] Yohana Bowen MD Unavailable Alejo Mi MD Unavailable [phone] Encounter Details Date Type Department Care Team (Late st Contact Info) Description 04/19/2023 Orders Only 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 ADDITIONAL INFORMATION This test was developed and its performance characteristics determined by [facility] in a manner consistent with CLIA [...] a homogeneous time-resolved immunofluorescent assay manufactured by [employer] and performed on the [employer] Compact Plus. ? Values obtained with different assay methods or kits may be different and cannot be used interchangeably. ? Test results cannot be interpreted as absolute evidence for the presence or absence of malignant disease. Test Performed by: [facility] [address] [place] [address] Production Repairer: Immanuel Novak M.D. Ph.D.; CLIA# [id number] Blood 05/02/2023 12:1 2 PM CDT 05/02/2023 2:10 PM CDT us Eren Cr MD LAB BLOOD ORDERABLES Final Re sult [facility] One [facility] Department [place] [address] * (ABNORMAL) Comprehensive metabolic panel (05/02/2023 12:12 PM CDT) [facility] Sodium 138 135 - 145 mmol/L [facility] Comment:Testing performed by : [facility], [address] [place] [address] Potassium, pl 4.2 3.3 - 4.9 mmol/L [facility] Chloride 108 97 - 110 mmol/L [facility] CO2 25 22 - 32 mmol/L [facility] Anion gap 5 2 - 15 mmol/L [facility] BUN 16 6 - 25 mg/dL [facility] Creatinine 1.22(H) 0.60 - 1.10 mg/dL [facility] Glucose 121 70 - 199 mg/dL [facility] Comment: Interpretive Data Fasting glucose >/= [...] total 0.6 0.1 - 1.2 mg/dL [facility] Protein, pl 6.1(L) 6.5 - 8.5 g/dL [facility] Albumin 3.9 3.5 - 5.0 g/dL [facility] Alk phos 58 40 - 130 Units/L [facility] ALT 22 7 - 45 Units/L [facility] AST 32 10 - 45 Units/L [facility] Blood 05/02/2023 12:1 2 PM CDT 05/02/2023 12:12 PM CDT us Eren Cr MD LAB BLOOD ORDERABLES Final Re sult [facility] One [facility] Department [place] [address] * (ABNORMAL) CBC with auto differential (05/02/2023 12:12 PM CDT) [facility] WBC 3.3(L) 3.8 - 9.9 K/cumm [facility] Comment:Testing performed by : [address] [address] Hgb 10.9(L) 11.9 - 15.5 g/dL [facility] Comment: Testing performed by: [facility], [address] [place] [address] Interpretive Data A reference range for this assay has not been established for patients with an unknown legal sex. Please refer to the laboratory test catalog for established sex-specific reference intervals. Current interpretive data was last revised on 2023. Hct 32.8(L) 35.6 - 45.5 % [facility] Comment: Testing performed by: [facility], [address] [place] [address] Interpretive Data A reference range for this assay has not been established for patients with an unknown legal sex. Please refer to the laboratory test catalog for established sex-specific reference intervals. Current interpretive data was last revised on 2023. Plt 90(L) 150 - 400 K/cumm [facility] Comment:Testing performed by : [facility], [address] [facility] [address] MPV 10.9 9.1 - 12.3 fL [facility] RBC 3.33(L) 3.90 - 5.20 M/cumm [facility] Comment: Interpretive Data A reference range for this assay has not been established for patients with an unknown legal sex. Please refer to the laboratory test catalog for established sex-specific reference intervals. Current interpretive data was last revised on 2023. MCV 98.5(H) 81.3 - 96.4 fL [facility] MCH 32.7 27.1 - 33.3 pg [facility] MCHC 33.2 32.3 - 35.7 g/dL [facility] RDW CV 14.1 11.1 - 14.9 % [facility] RDW SD 50.5(H) 35.7 - 48.1 fL [facility] NRBC abs 0.00 0.00 - 0.01 K/cumm [facility] Blood 05/02/2023 12:1 2 PM CDT 05/02/2023 12:12 PM CDT Eren Cr MD LAB BLOOD ORDERABLES Final Re sult Performing Organization Address City/[facility] Co de Phone Number [facility] [place] [employer] [place] [address] * (ABNORMAL) Vitamin D 25 hydroxy (05/02/2023 12:12 PM CDT) [facility] Vitamin D 25-OH 17(L) 30 - 80 ng/mL [facility] Blood 05/02/2023 12:1 2 PM CDT 05/02/2023 2:06 PM CDT Eren Cr MD LAB BLOOD ORDERABLES Final Re sult Performing Organization Address [facility] Co de Phone Number [facility] Department [place] [address] * (ABNORMAL) Phosphorus (05/02/2023 12:12 PM CDT) Phosphorus, pl 1.9(L) 2.3 - 4.5 mg/dL [facility] Comment:Testing performed by : [facility], [address] [place] [address] Blood 05/02/2023 12:1 2 PM CDT 05/02/2023 12:12 PM CDT us Eren Cr MD LAB BLOOD ORDERABLES Final Re sult [facility] Department [place] [address] * Lipid panel (05/02/2023 12:12 [...] on 2018. HDL 60 >=40 mg/dL [facility] [...] 2018. LDL, calculated 63 <=129 mg/dL [facility] [...] on 2018. Non-HDL Cholesterol 89 mg/dL [facility] Comment: [...] last revised on 2018. 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) documented in this encounter Orders Appointment Requests Count Last Ordered Date Fi rst Ordered Date ONCBCN CLINIC APPOINTMENT REQUEST 1 023 ONCBCN INJECTION APPOINTMENT REQUEST 1 04/08 ONCBCN LAB APPOINTMENT 1 05/02/2023 documented in this encounter Care Teams House Piping Inspector Relationship Specialty Start Date End Date Julio César Briseno MD PCP - General 10/01/16 Eren Cr MD Referring Physician Medical Oncology 11/25/18 Yohana Bowen MD Radiation Oncologist Radiation Oncology 11/25/18 Alejo Mi MD [address] [facility] [address] [place] [address] Referring Physician Nephrology 03/07/23 documented as of this encounter
--- OUTSIDE RECORDS SUMMARY | 2024-06-26 01:57 | XMS_ITS | Encounter Summary ---
Author Organization [facility] Address [address] [place] [address] Phone Care Team Providers Care Energy Audit Advisor Name Role Phone Julio César Briseno MD Primary Care Provider [phone] Eren Cr MD Unavailable [phone] Yohana Bowen MD Unavailable Alejo Mi MD Unavailable [phone] Encounter Details Date Type Department Care Team (Latest Contact Info) Description 03/25/2023 2:30 PM CDT Procedure visit [facility] Otol[facility]. 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 Medical history was obtained by medical data analyst and reviewed. Results were reviewed with the [...] Primary documented in this encounter Care Teams Energy Audit Advisor Relationship Specialty Start Date End Date Julio César Briseno MD PCP - General 10/01/16 Eren Cr MD Referring Physician Medical Oncology 11/25/18 Yohana oBwen MD Radiation Oncologist Radiation Oncology 11/25/18 Alejo Mi MD [address] [place] [address] Referring Physician Nephrology 03/07/23 documented as of this encounter
--- OUTSIDE RECORDS SUMMARY | 2024-06-26 01:57 | XMS_ITS | Encounter Summary ---
Author Organization [facility] Home Care Servic es Address [address] [place] [address] Phone Care Team Providers Care Livestock Slaughterer Name Role Phone Julio César Briseno MD Primary Care Provider [phone] Eren Cr MD Unavailable [phone] Yohana Bowen MD Unavailable Alejo Mi MD Unavailable [phone] Reason for Visit * Reason Comments Chronic Fatigue Encounter Details Date Type Department Care Team (Late st Contact Info) Description 04/24/2023 12:15 PM CDT Home Care Visit [facility] Health [address] [place] [address] Sherlyn Orozco RN SN HOME VISIT Social [...] file Legal Sex Female 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 DIGITAL 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 SPECIALIST Gender Identity Not on file [...] Dose Rate Site 0.9 % sodium chloride ([facility] sodium chloride 0.9%) injection 10 mL, [...] home health visit Disciplines: SN, PT, OT, MANAGER RESEARCH AND DEVELOPMENT, DIRECTOR MEDICAL ECONOMICS, Skilled Disciplines Monitor patient's vital signs every [...] visit during episode of care Description: Home application designer to measure vital signs during every home [...] Scheduled documented in this encounter Care Teams Livestock Slaughterer Relationship Specialty Start Date End Date Julio César Briseno MD PCP - General 10/01/16 Eren Cr MD Referring Physician Medical Oncology 11/25/18 Yohana Bowen MD Radiation Oncologist Radiation Oncology 11/25/18 Alejo Mi MD [address] [address] Referring Physician Nephrology 03/07/23 documented as of this encounter
--- OUTSIDE RECORDS SUMMARY | 2024-06-26 01:57 | XMS_ITS | Encounter Summary ---
Author Organization [facility] [employer] [facility] Address [address] [place] [address] Phone Care Team Providers Care Feather Renovator Name Role Phone Julio César Briseno MD Primary Care Provider Eren Cr MD Unavailable [phone] Yohana Bowen MD Unavailable Alejo Mi MD Unavailable [phone] Encounter Details Date Type Department Care Team (Late st Contact Info) Description 05/02/2023 Orders Only [facility] Oncology [address] [place] [address] Dorota Gallardo, RN Social History Tobacco Use [...] file Legal Sex Female 2:41 PM VP CUSTOMER DEVELOPMENT Gender Identity Not on file Sexual Orientation Straight 02/19/2021 9: 29 AM CDT Occupation Industry Job Start Date Job End Date retired Not on file Not on file Not on file documented as of this encounter Plan of Treatment Not on file documented as of this encounter Visit Diagnoses Not on filedocumented in this encounter Care Teams Feather Renovator Relationship Specialty Start Date End Date Julio César Briseno MD PCP - General 10/01/16 Eren Cr MD Referring Physician Medical Oncology 11/25/18 Yohana Bowen MD Radiation Oncologist Radiation Oncology 11/25/18 Alejo Mi MD [address] [address] Referring Physician Nephrology 03/07/23 documented as of this encounter
--- OUTSIDE RECORDS SUMMARY | 2024-06-26 01:57 | XMS_ITS | Encounter Summary ---
Author Organization [facility] Address [address] [place] [address] Phone Care Team Providers Care C T Tech Name Role Phone Julio César Briseno MD Primary Care Provider Eren Cr MD Unavailable [phone] Yohana Bowen MD Unavailable Alejo Mi MD Unavailable [phone] Encounter Details Date Type Department Care Team (Late st Contact Info) Description 04/23/2023 Orders Only [facility] Oncology [address] [place] [address] Eren Cr MD [address] [place] [address] Neuro-endocrine carcinoma (HCC) (Primary Dx) Social History [...] on file Legal Sex Female 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 Gender Identity Not on file Sexual Orientation Straight 02/19/2021 9: 29 AM CDT Occupation Industry Job Start Date Job End Date retired Not on file Not on file Not on file documented as of this encounter Plan of Treatment Not on file documented as of this encounter Results * Magnesium (05/02/2023 12:12 PM CDT) [facility] Magnesium 1.4 1.4 - 2.5 mg/dL [facility] Comment:Testing performed by : [address] [address] Blood 05/02/2023 12:1 2 PM CDT 05/02/2023 12:12 PM CDT Eren Cr MD LAB BLOOD ORDERABLES Final Re sult [facility] One [facility] [place] [address] * Protein / creatinine ratio, urine, random (05/02/2023 12:00 PM CDT) Pathologist [facility] Protein, ur, quant 10.6 mg/dL [facility] Comment: Interpretive Data No reference range established. Current interpretive data was last revised 2018. Creatinine Ur 143.1 mg/dL [facility] Comment: Interpretive Data No reference range established. Current interpretive data was last revised 2018. Protein/creatinin e ratio 74.1 0.0 - 180.0 mg/g CR [facility] Urine 05/02/2023 12:0 0 PM CDT 05/02/2023 2:06 PM CDT us Eren Cr MD LAB URINE ORDERABLES Final Re sult [facility] One [facility] [place] [address] documented in this encounter Visit Diagnoses Diagnosis Neuro-endocrine carcinoma (HCC)- Primary Other malignant neoplasm of unspecified site documented in this encounter Orders Appointment Requests Count Last Ordered Date Fi rst Ordered Date ONCBCN CLINIC APPOINTMENT REQUEST 1 023 ONCBCN LAB APPOINTMENT 1 05/02/2023 ONCBCN TAKE HOME STUDY DRUG APPT 1 05/02/20 documented in this encounter Care Teams C T Tech Relationship Specialty Start Date End Date Julio César Briseno MD PCP - General 10/01/16 Eren Cr MD Referring Physician Medical Oncology 11/25/18 Yohana Bowen MD Radiation Oncologist Radiation Oncology 11/25/18 Alejo Mi MD [address] [place] [address] Referring Physician Nephrology 03/07/23 documented as of this encounter
--- OUTSIDE RECORDS SUMMARY | 2024-06-26 01:57 | XMS_ITS | Encounter Summary ---
Author Organization [facility] Address [address] [place] [address] Phone Care Team Providers Care Skimmer Scoop Operator Name Role Phone Julio César Briseno MD Primary Care Provider [phone] Eren Cr MD Unavailable Yohana Bowen MD Unavailable [place] Waggoner MD Unavailable [phone] Reason for Visit * Consultation (Urgent) - Closed Specialty Diagnoses / Procedures Referred By Contac t Referred To Contact Endocrinology Diagnoses Neuroendocrine carcinoma (HCC) Abnormal TSH Eren Cr MD [address] [facility] [address] [place] [address] Phone: tel: fax: [facility] (All Locations) Referral ID Status Reason Start Date Expiration Date V isits Requested Visits Authorized [id number] Closed Specialty Services Required 03/12/2023 04/10/2024 1 1 Encounter Details Date Type Department Care Team (Latest Contact Info) Description 03/29/2023 1:30 PM CDT Office Visit 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 Authorizing Provider 0.9 % sodium chloride ([facility] sodium chloride 0.9%) injection Infuse 10 mL into a venous catheter once a week On saturday Yes Levon Kee MD ascorbic acid, vitamin C, 500 mg capsule Take 1 tablet by mouth wind field manager before breakfast 07/04/16 Yes Levon Kee MD cholecalciferol (VITAMIN D-3) 1,000 unit Take 1 tablet/capsule (1,000 Units total) by mouth daily Patient taking differently: Take 1 tablet/capsule (1,000 Units total) by mouth every morning 11/16/22 11/16/23 Yes Alejo Mi MD clotrimazole-betamethasone (LOTRISONE) cream Apply 1 Application topically daily as needed (rash) Yes Levon Kee MD coenzyme H94-otagldo E 100-5 mg-unit capsule Take 1 tablet by mouth wind field manager before breakfast Yes Levon Kee MD denosumab [...] flush Yes Levon Kee MD [facility] cabozantinib/placebo (/[id number]) 20 mg tablet Take 1 tablet (20 mg total) bymouth nightly Take on an empty stomach (no food for 2 hours before and 1 hour after each dose). Avoid Jas's Wort, grapefruit products and [place] oranges while on treatment. placed on hold 09/26/22 for covid 01/29/22 Yes Eren Cr MD levothyroxine (SYNTHROID) 88 mcg tablet Take 1 tablet (88 mcg total) by mouth wind field manager before breakfast Patient taking differently: Take 1 tablet (88 mcg total) by mouth wind field manager before breakfast 10/12/22 Yes Eren Cr MD [...] 10/18/22 Yes Eren Cr MD ostomy supplies [facility] [place] Patient has colostomy and needs Cavilon 3M skin barrier film to manage. 09/21/19 Yes Greyson Reeves MD simvastatin (ZOCOR) 20 mg tablet Take 1 tablet (20 mg total) by mouth nightly Yes Levon Kee MD sodium chloride 0.9 % solution Infuse 1,000 mL into a venous catheter once a week Patient to [id number] of Normal Saline via CADD Coreas pump [...] post op 02/05/23 Nasim Rojas MD HYDROcodone-acetaminophen ([place]) 5-325 mg per tablet Take 1 tablet [...] Visit Medication Sig 0.9 % sodium chloride ([facility] sodium chloride 0.9%) injection Infuse 10 mL into a venous catheter once a week On saturday ascorbic acid, vitamin C, 500 mg capsule Take 1 tablet by mouth wind field manager before breakfast cholecalciferol (VITAMIN D-3) 1,000 unit Take 1 tablet/capsule (1,000 Units total) by mouth daily (Patient taking differently: Take 1 tablet/capsule (1,000 Units total) by mouth every morning) clotrimazole-betamethasone (LOTRISONE) cream Apply 1 Application topically daily as needed (rash) coenzyme V79-msbsbuc E 100-5 mg-unit capsule Take 1 tablet by mouth wind field manager before breakfast denosumab (Xgeva) 120 mg/1.7 mL [...] a week Fluids every -Heparin to flush [facility] cabozantinib/placebo (/[id number]) 20 mg tablet Take 1 tablet (20 mg total) [facility] Take on an empty stomach (no food for 2 hours before and 1 hour after each dose). Avoid [place]'s Wort, grapefruit products and [place] oranges while on treatment. placed on hold 09/26/22 for covid levothyroxine (SYNTHROID) 88 mcg tablet Take 1 tablet (88 mcg total) by mouth wind field manager before breakfast (Patient taking differently: Take 1 tablet (88 mcg total) by mouth wind field manager before breakfast) lidocaine-prilocaine (lidocaine-prilocaine) cream Apply topically [...] venous catheter once a week Patient to [id number] of Normal Saline via CADD Coreas pump [...] day Begin 1 week post op HYDROcodone-acetaminophen ([place]) 5-325 mg per tablet Take 1 tablet [...] T4 1.03 0.90 - 1.70 ng/dL [facility] Blood 03/29/2023 3:45 PM CDT 03/29/2023 4:07 PM CDT Leila Gaytan MD LAB BLOOD ORDERABLES Final R esult Performing Organization Address [facility]/ZIP Co de Phone Number [facility] [place] [address] * (ABNORMAL) TSH (03/29/2023 3:45 PM CDT) Thyroid Stimulating Hormone 8.98(H) 0.30 - 4.20 mcIUnit/mL [facility] Blood 03/29/2023 3:45 PM CDT 03/29/2023 4:07 PM CDT Leila Gaytan MD LAB BLOOD ORDERABLES Final R esult [place] [address] * Thyroid peroxidase antibody (TPO) (03/29/2023 3:45 PM CDT) Pathologist [facility] Anti Thyroid Peroxidase <30 <=34 units/mL [facility] Comment: ATPO Interpretive Data Results may be up to 28% higher in patients receiving Itraconazole. Current interpretive data was last revised 2020. Blood 03/29/2023 3:45 PM CDT 03/29/2023 4:07 PM CDT Leila Gaytan MD LAB BLOOD ORDERABLES Final R esult Performing Organization Address City/[facility] [place] [address] * Thyroid stimulating immunoglobulin (03/29/2023 3:45 PM CDT) Pathologist [facility] TSIG <1.0 <=1.3 [facility] Comment: Test Performed by: [facility] [place] [address] [place] [address] [place] Strip Inspector: Immanuel Novak M.D. Ph.D.; CLIA# [id number] Blood 03/29/2023 3:45 PM CDT 03/29/2023 4:58 PM CDT Leila Gaytan MD LAB BLOOD ORDERABLES Final R esult Performing Organization Address City/State/[facility] [place] [address] documented in this encounter Visit Diagnoses Diagnosis Hypothyroidism, unspecified type- Primary Neuroendocrine carcinoma (HCC) Other malignant neoplasm of unspecified site Abnormal TSH documented in this encounter Orders Outpatient Referral Count Last Ordered Date Fir st Ordered Date AMB REFERRAL TO ENDOCRINOLOGY 1 03/29/2023 documented in this encounter Care Teams Skimmer Scoop Operator Relationship Specialty Start Date End Date Julio César Briseno MD PCP - General 10/01/16 Eren Cr MD Referring Physician Medical Oncology 11/25/18 Yohana Bowen MD Radiation Oncologist Radiation Oncology 11/25/18 Alejo Mi MD [address] [place] [address] Referring Physician Nephrology 03/07/23 documented as of this encounter
--- OUTSIDE RECORDS SUMMARY | 2024-06-26 01:57 | XMS_ITS | Encounter Summary ---
Author Organization [facility] Address [address] [place] [address] Phone Care Team Providers Care Event Marketing Manager Name Role Phone Julio César Briseno MD Primary Care Provider [phone] Eren Cr MD Unavailable [phone] Yohana Bowen MD Unavailable [place] Ramos MD Unavailable [phone] Reason for Visit * Episode Based Medications (Routine) - Closed Specialty Diagnoses / Procedures Referred By Contac t Referred To Contact Diagnoses Neuro-endocrine carcinoma (HCC) Procedures study [id number] phase III cabozantinib Eren Cr MD [address] [place] [address] Phone: tel: fax: [facility] [address] 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 Gender Identity Not on file Sexual Orientation [...] Ordered Date First Ordered Date [facility] cabozantinib (/[id number]) tablet 20 mg 1 05/02/2023 Nursing Count Last Ordered Date First Orde red Date ONCBCN STUDY COMMUNICATION 1 1 05/02/2023 ONCBCN TREATMENT PARAMETERS 1 1 05/02/2023 RESEARCH STUDY CLARIFICATION ORDER 1 2022 Appointment Requests Count Last Ordered Date Fi rst Ordered Date ONCBCN TAKE HOME STUDY DRUG APPT 1 05/02/20 documented in this encounter Care Teams Event Marketing Manager Relationship Specialty Start Date End Date Julio César Briseno MD PCP - General 10/01/16 Eren Cr MD Referring Physician Medical Oncology 11/25/18 Yohana Bowen MD Radiation Oncologist Radiation Oncology 11/25/18 Alejo Mi MD [address] [address] Referring Physician Nephrology 03/07/23 documented as of this encounter
--- OUTSIDE RECORDS SUMMARY | 2024-06-26 01:57 | XMS_ITS | Encounter Summary ---
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) Procedures CO OCTREOTIDE INJECTION, DEPOT Octreotide 28 Day Cycles - Carcinoid Eren Cr MD [address] [facility] [address] [place] [address] Phone: tel: fax: [facility] [address] [address] Phone: tel: fax: Referral ID Status Reason Start Date Expiration Date V isits Requested Visits Authorized [id number] Authorized 11/28/2017 02/05/2025 1 150 Encounter Details Date Type Department Care Team (Late st Contact Info) Description 04/04/2023 3:45 PM CDT Infusion [facility] Oncology [address] [place] [address] 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 [...] file Legal 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 [...] First Orde red Date ONCBCN NURSING COMMUNICATION [id number] 04/04 ONCBCN NURSING COMMUNICATION [id number] 1 0 04/04/2023 PHYSICIAN COMMUNICATION ORDER 1 04/04/2023 Appointment Requests Count Last Ordered Date Fi rst Ordered Date ONCBCN INJECTION APPOINTMENT REQUEST 1 03/09 documented in this encounter Care Teams Long Wall Shear Operator Relationship Specialty Start Date End Date Julio César Briseno MD PCP - General 10/01/16 Eren Cr MD Referring Physician Medical Oncology 11/25/18 Yohana Bowen MD Radiation Oncologist Radiation Oncology 11/25/18 Alejo Mi MD [address] [address] Referring Physician Nephrology 03/07/23 documented as of this encounter
--- OUTSIDE RECORDS SUMMARY | 2024-06-26 01:57 | XMS_ITS | Encounter Summary ---
Author Organization [facility] Address [address] [place] [address] Phone Care Team Providers Care Air Conditioning Equipment Mechanic Name Role Phone Julio César Briseno MD Primary Care Provider [phone] Eren Cr MD Unavailable [phone] Yohana Bowen MD Unavailable [place]jo Ramos MD Unavailable Reason for Visit * Episode Based Medications (Routine) - Closed Specialty Diagnoses / Procedures Referred By Contac t Referred To Contact Diagnoses Neuro-endocrine carcinoma (HCC) Procedures study [id number] phase III cabozantinib Eren Cr MD [address] [place] [address] Phone: tel: fax: [facility] [address] [facility] 7th [place] [address] Phone: tel: Referral ID Status Reason Start Date Expiration Date Visits Re quested Visits Authorized [id number] Closed 06/21/2021 06/26/2024 1 99 Encounter Details Date Type Department Care Team (Latest Contact Info) Description 04/04/2023 3:00 PM CDT Office Visit [facility] [address] [place] [address] Sara Powers NP [address] [place] [address] Neuroendocrine carcinoma (HCC) (Primary Dx); Malignant neoplasm [...] on file Legal 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 Greyson [...] skin. Scattered bruises to arms. NEURO: A&Ox4, computer operations specialist grossly intact by conversation, moving all [...] Tumor Markers Chromogranin A <93 ng/mL 1630 [id number] RADIOGRAPHIC/DIAGNOSTIC REVIEW: CT chest abdomen pelvis with [...] on 03/07/23 - We discussed that the [place] Data and Safety Monitoring Board (DSMB) voted [...] 023 documented in this encounter Care Teams Air Conditioning Equipment Mechanic Relationship Specialty Start Date End Date Julio César Briseno MD PCP - General 10/01/16 Eren Cr MD Referring Physician Medical Oncology 11/25/18 Yohana Bowen MD Radiation Oncologist Radiation Oncology 11/25/18 Alejo Mi MD [address] [address] Referring Physician Nephrology 03/07/23 documented as of this encounter
--- OUTSIDE RECORDS SUMMARY | 2024-06-26 01:57 | XMS_ITS | Encounter Summary ---
Author Organization [facility] Address [address] [place] [address] Phone Care Team Providers Care Refractory Tile Helper Name Role Phone Julio César Briseno MD Primary Care Provider Eren Cr MD Unavailable [phone] Yohana Bowen MD Unavailable Alejo Mi MD Unavailable [phone] Encounter Details Date Type Department Care Team (Late st Contact Info) Description 05/02/2023 Orders Only [facility] Oncology [address] [place] [address] Eren Cr MD [address] [place] [address] Social History Tobacco Use Types Packs/Day Years [...] file 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 Gender Identity Not on file Sexual Orientation Straight 02/19/2021 9: 29 AM CDT Occupation Industry Job Start Date Job End Date retired Not on file Not on file Not on file documented as of this encounter Plan of Treatment Not on file documented as of this encounter Visit Diagnoses Not on filedocumented in this encounter Care Teams Refractory Tile Helper Relationship Specialty Start Date End Date Julio César Briseno MD PCP - General 10/01/16 Eren Cr MD Referring Physician Medical Oncology 11/25/18 Yohana Bowen MD Radiation Oncologist Radiation Oncology 11/25/18 Alejo Mi MD [address] [address] Referring Physician Nephrology 03/07/23 documented as of this encounter
--- OUTSIDE RECORDS SUMMARY | 2024-06-26 01:57 | XMS_ITS | Encounter Summary ---
Author Organization [facility] Healthcare Address [address] [place] [address] Care Team Providers Care Hearing Examiner Name Role Phone Julio César Briseno MD Primary Care Provider [phone] Eren Cr MD Unavailable [phone] Yohana Bowen MD Unavailable Alejo Mi MD Unavailable [phone] Encounter Details Date Type Department Care Team (Latest Contact Info) Description 03/29/2023 3:22 PM CDT - 03/29/2023 11:59 PM CDT Hospital Encounter [facility] ([facility]) [address] [place] [address] Discharge Disposition: Discharge to home or self [...] file 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 sodium chloride 0.9%) injectionIndication s:line care Infuse 10 mL into a venous catheter once a week On saturday06/20/20 24 amLODIPine (NORVASC) 5 mg tabletIndications:h ypertension Take 0.5 tablets (2.5 mg total) by mouth nightly 07/27/2022 06/11/20 23 ascorbic acid, vitamin C, 500 mg capsuleIndications: supplement Take 1 tablet by mouth emergency room tech before breakfast 07/04/2016 06/20/20 24 ciprofloxacin-dexAM ETHasone (CIPRODEX) otic suspension Administer 4 drops into the right ear 2 (two) times a day Begin 1 week post op 7.5 mL 3 02/05/2023 06/11/20 23 clotrimazole-betame thasone (LOTRISONE) cream Apply 1 Application topically daily as needed (rash) 06/20/20 24 coenzyme H62-mymgepm E 100-5 mg-unit capsuleIndications: supplement Take 1 tablet by mouth emergency room tech before breakfast 06/20/20 24 diphenoxylate-atrop ine (LOMOTIL) [...] -Heparin to flush 06/20/20 24 HYDROcodone-acetami nophen ([place]) 5-325 mg per tabletIndications:P ain Take 1 tablet by mouth every 6 (six) hours as needed for pain 15 tablet 02/05/2023 05/24/20 23 [facility] cabozantinib/placeb o (/[id number]) 20 mg tabletIndications:c ancer study Take 1 tablet (20 mg total) by mouth nightly Take on an empty stomach (no food for 2 hours before and 1 hour after each dose).?? Avoid Jas's Wort, grapefruit products and [place] oranges while on treatment. 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
--- OUTSIDE RECORDS SUMMARY | 2024-06-26 01:57 | XMS_ITS | Encounter Summary ---
Author Organization [facility] Healthcare Address [address] [place] [address] Care Team Providers Care Non Categorical Preschool Teacher Name Role Phone Julio César Briseno MD Primary Care Provider [phone] Eren Cr MD Unavailable [phone] Yohana Bowen MD Unavailable Alejo Mi MD Unavailable [phone] Encounter Details Date Type Department Care Team (Late st Contact Info) Description 05/08/2023 Home Care Visit [facility] - [place] [address] [address] [place] [address] Shelryn Orozco RN SBAR-RECERTIFICATION Social History Tobacco Use [...] on file Legal 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 Female 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 Gender Identity Not on file Sexual Orientation Straight 02/19/2021 9: 29 AM CDT Occupation Industry Job Start Date Job End Date retired Not on file Not on file Not on file documented as of this encounter Plan of Treatment Not on file documented as of this encounter Visit Diagnoses Not on filedocumented in this encounter Care Teams Non Categorical Preschool Teacher Relationship Specialty Start Date End Date Julio César Briseno MD PCP - General 10/01/16 Eren Cr MD Referring Physician Medical Oncology 11/25/18 Yohana Bowen MD Radiation Oncologist Radiation Oncology 11/25/18 Alejo Mi MD [address] [address] Referring Physician Nephrology 03/07/23 documented as of this encounter
--- OUTSIDE RECORDS SUMMARY | 2024-06-26 01:57 | XMS_ITS | Encounter Summary ---
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
--- OUTSIDE RECORDS SUMMARY | 2024-06-26 01:58 | XMS_ITS | Encounter Summary ---
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 Female 2: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 BURLAP 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 Gender Identity Not on file Sexual [...] Visit Type -SN Non-OASIS Rec ert Discipline -Fci Problems Problem Description Start Date [...] home health visit Disciplines: SN, PT, OT, TALK SHOW HOST, TOBACCO DRUMMER, Skilled Disciplines Monitor patient's vital signs every [...] visit during episode of care Description: Home buoy tender to measure vital signs during every [...] Scheduled documented in this encounter Care Teams Sport Intern Relationship Specialty Start Date End Date Julio César Briseno MD PCP - General 10/01/16 Eren Cr MD Referring Physician Medical Oncology 11/25/18 Yohana Bowen MD Radiation Oncologist Radiation Oncology 11/25/18 Alejo Mi MD [address] [address] Referring Physician Nephrology 03/07/23 documented as of this encounter
--- OUTSIDE RECORDS SUMMARY | 2024-06-26 01:58 | XMS_ITS | Encounter Summary ---
Author Organization [facility] Address [address] [place] [address] Phone Care Team Providers Care White Metal Caster Name Role Phone Julio César Briseno MD Primary Care Provider [phone] Eren Cr MD Unavailable [phone] Yohana Bowen MD Unavailable Reason for Visit * Episode Based Medications (Routine) - Closed Specialty Diagnoses / Procedures Referred By Evelyne bowman Referred To Contact Diagnoses Neuro-endocrine carcinoma (HCC) Procedures study [id number] phase III cabozantinib Eren Cr MD [address] [facility] [address] [place] [address] Phone: tel: fax: [facility] and [facility] [address] [facility] Advanced Medicine 7th [place] [address] Phone: tel: Referral ID Status Reason Start Date Expiration Date Visits Re quested Visits Authorized [id number] Closed 06/21/2021 06/26/2024 1 99 Encounter Details Date Type Department Care Team (Late st Contact Info) Description 01/10/2023 10:00 AM CDT Office Visit [facility] Oncology [address] [place] [address] Eren Cr MD [address] [facility] [address] [place] [address] Neuroendocrine carcinoma (HCC) (Primary Dx); Malignant neoplasm [...] on file 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 NEURO: A&Ox4, labor conciliator grossly intact by conversation, moving all extremities [...] Magnesium 1.7 1.4 - 2.5 mg/dL [facility] Comment:Testing performed by : [facility], [address] [place] [address] Blood 02/07/2023 1:39 PM CDT 02/07/2023 1:40 PM CDT us Eren Cr MD LAB BLOOD ORDERABLES Final Re sult [facility] [place] [address] * (ABNORMAL) Chromogranin A (02/07/2023 1:39 PM CDT) Chromogranin A 902(H) <93 ng/mL [facility] Comment: Impaired renal or hepatic function or treatment with proton pump inhibitors may result in artifactual elevations of Chromogranin A. ADDITIONAL INFORMATION This test was developed and its performance characteristics determined by [facility] in a manner consistent with CLIA requirements. [...] a homogeneous time-resolved immunofluorescent assay manufactured by [employer] and performed on the [employer] Kryptor Compact Plus. ? Values obtained with different assay methods or kits may be different and cannot be used interchangeably. ? Test results cannot be interpreted as absolute evidence for the presence or absence of malignant disease. Test Performed by: [address] [address] Mortgage Specialist: Immanuel Novak M.D. Ph.D.; CLIA# [id number] Blood 02/07/2023 1:39 PM CDT 02/07/2023 4:39 PM CDT Narrative [facility] - 02/09/2023 9:40 AM CDT sent 1.0 ml serum us Eren Cr MD LAB BLOOD ORDERABLES Final Re sult [facility] [place] [address] * (ABNORMAL) Comprehensive metabolic panel (02/07/2023 1:39 PM CDT) Sodium 140 135 - 145 mmol/L [facility] Comment:Testing performed by : [facility], [address] [place] [address] Potassium, pl 4.8 3.3 - 4.9 mmol/L [facility] Chloride 107 97 - 110 mmol/L [facility] CO2 27 22 - 32 mmol/L [facility] Anion gap 6 2 - 15 mmol/L [facility] BUN 15 6 - 25 mg/dL [facility] Creatinine 1.30(H) 0.60 - 1.10 mg/dL [facility] Glucose 77 70 - 199 mg/dL [facility] Comment: Interpretive Data Fasting glucose [...] 2022. Calcium 10.0 8.5 - 10.3 mg/dL [facility] Bilirubin, total 0.5 0.1 - 1.2 mg/dL [facility] Protein, pl 6.6 6.5 - 8.5 g/dL [facility] Albumin 4.0 3.5 - 5.0 g/dL [facility] Alk phos 62 40 - 130 Units/L [facility] ALT 21 7 - 45 Units/L [facility] AST 29 10 - 45 Units/L [facility] Blood 02/07/2023 1:39 PM CDT 02/07/2023 1:40 PM CDT Eren Cr MD LAB BLOOD ORDERABLES Final Re sult [facility] [place] [address] * (ABNORMAL) CBC with auto differential (02/07/2023 1:39 PM CDT) [facility] WBC 3.1(L) 3.8 - 9.9 K/cumm [facility] Comment:Testing performed by : [address] [address] Hgb 11.3(L) 11.9 - 15.5 g/dL [facility] Comment:Testing performed by : [address] [address] Hct 34.9(L) 35.6 - 45.5 % [facility] Comment:Testing performed by : [address] [address] Plt 95(L) 150 - 400 K/cumm [facility] Comment:Testing performed by : [address] [address] MPV 10.2 9.1 - 12.3 fL [facility] RBC 3.48(L) 3.90 - 5.20 M/cumm [facility] MCV 100.3(H) 81.3 - 96.4 fL [facility] MCH 32.5 27.1 - 33.3 pg [facility] MCHC 32.4 32.3 - 35.7 g/dL [facility] RDW CV 14.7 11.1 - 14.9 % [facility] RDW SD 52.7(H) 35.7 - 48.1 fL [facility] NRBC abs 0.00 0.00 - 0.01 K/cumm [facility] Blood 02/07/2023 1:39 PM CDT 02/07/2023 1:40 PM CDT Eren Cr MD LAB BLOOD ORDERABLES Final Re sult Performing Organization Address [facility] Co de Phone Number [place], [place] [phone] * (ABNORMAL) Vitamin D 25 hydroxy (02/07/2023 1:39 PM CDT) Vitamin D 25-OH 22(L) 30 - 80 ng/mL [facility] Blood 02/07/2023 1:39 PM CDT 02/07/2023 3:38 PM CDT Eren Cr MD LAB BLOOD ORDERABLES Final Re sult Performing Organization Address [facility] Co de Phone Number [place], [place] [phone] * (ABNORMAL) Phosphorus (02/07/2023 1:39 PM CDT) Phosphorus, pl 2.1(L) 2.3 - 4.5 mg/dL [facility] Comment:Testing performed by : [address] [address] Blood 02/07/2023 1:39 PM CDT 02/07/2023 1:40 PM CDT Eren Cr MD LAB BLOOD ORDERABLES Final Re sult Performing Organization Address [facility] [place] [address] * (ABNORMAL) Lipid panel (02/07/2023 1:39 PM CDT) Cholesterol 167 30 - 199 mg/dL [facility] Comment: Interpretive Data Ages < [...] on 2018. Triglycerides 193(H) <=149 mg/dL [facility] Comment: Interpretive Data [...] on 2018. LDL, calculated 72 <=129 mg/dL [facility] Comment: Interpretive Data Ages < [...] revised on 2018. Non-HDL Cholesterol 111 mg/dL [facility] Comment: Interpretive Data Ages < [...] last revised on 2018. Chol/HDL ratio 3 [facility] Blood 02/07/2023 1:39 PM CDT 02/07/2023 3:38 PM CDT us Eren Cr MD LAB BLOOD ORDERABLES Final Re sult [facility] [place] [address] documented in this encounter Visit Diagnoses Diagnosis [...] 23 documented in this encounter Care Teams White Metal Caster Relationship Specialty Start Date End Date Julio César Briseno MD PCP - General 10/01/16 Eren Cr MD Referring Physician Medical Oncology 11/25/18 Yohana Bowen MD Radiation Oncologist Radiation Oncology 11/25/18 documented as of this encounter
--- OUTSIDE RECORDS SUMMARY | 2024-06-26 01:58 | XMS_ITS | Encounter Summary ---
Author Organization [facility] Address [address] [place] [address] Phone Care Team Providers Care Superintendent Maintenance Name Role Phone Julio César Briseno MD Primary Care Provider [phone] Eren Cr MD Unavailable [phone] Yohana Bowen MD Unavailable MiamiAlejo Ramos MD Unavailable [phone] Reason for Visit * Episode Based Medications (Routine) - Closed Specialty Diagnoses / Procedures Referred By Contac t Referred To Contact Diagnoses Neuro-endocrine carcinoma (HCC) Procedures study [id number] phase III cabozantinib Eren Cr MD [address] [place] [address] Phone: tel: fax: [facility] and [facility] [address] [facility] 7th [place] [address] Phone: tel: Referral ID Status Reason Start Date Expiration Date Visits Re quested Visits Authorized [id number] Closed 06/21/2021 06/26/2024 1 99 Encounter Details Date Type Department Care Team (Latest Contact Info) Description 03/07/2023 11:45 AM CDT Research Med Pick-Up/CTRU Combiner [facility] Oncology [address] [place] [address] Neuro-endocrine carcinoma (HCC) (Primary Dx) Social History [...] on file 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 Gender Identity Not on file Sexual [...] Date First Ordered Date [facility] cabozantinib/pl acebo (/[id number]) tablet 20 mg 1 03/07/2023 Nursing Count Last Ordered Date First Orde red Date ONCBCN OK TO TREAT 1 03/07/2023 ONCBCN STUDY COMMUNICATION 2 03/07/2023 ONCBCN TREATMENT PARAMETERS 1 1 03/07/2023 Appointment Requests Count Last Ordered Date Fi rst Ordered Date ONCBCN TAKE HOME STUDY DRUG APPT 1 03/07/20 documented in this encounter Care Teams Superintendent Maintenance Relationship Specialty Start Date End Date Julio César Briseno MD PCP - General 10/01/16 Eren Cr MD Referring Physician Medical Oncology 11/25/18 Yohana Bowen MD Radiation Oncologist Radiation Oncology 11/25/18 Alejo Mi MD [address] [place] [address] Referring Physician Nephrology 03/07/23 documented as of this encounter
--- OUTSIDE RECORDS SUMMARY | 2024-06-26 01:58 | XMS_ITS | Encounter Summary ---
Author Organization [facility] Address [address] [place] [address] Phone Care Team Providers Care Insulation Worker Furnace Installer Name Role Phone Julio César Briseno MD Primary Care Provider [phone] Eren Cr MD Unavailable [phone] Yohana Bowen MD Unavailable Alejo Mi MD Unavailable [phone] Encounter Details Date Type Department Care Team (Late st Contact Info) Description 03/13/2023 Home Care Visit [facility] [address] [address] [address] [place] [address] Willem Sung RN SBAR-RECERTIFICATION Social [...] on file Legal Sex Female 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 PM 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 Gender Identity Not on file Sexual Orientation Straight 02/19/2021 9: 29 AM CDT Occupation Industry Job Start Date Job End Date retired Not on file Not on file Not on file documented as of this encounter Plan of Treatment Not on file documented as of this encounter Visit Diagnoses Not on filedocumented in this encounter Care Teams Insulation Worker Furnace Installer Relationship Specialty Start Date End Date Julio César Briseno MD PCP - General 10/01/16 Eren Cr MD Referring Physician Medical Oncology 11/25/18 Yohana Bowen MD Radiation Oncologist Radiation Oncology 11/25/18 Alejo Mi MD [address] [address] Referring Physician Nephrology 03/07/23 documented as of this encounter
--- OUTSIDE RECORDS SUMMARY | 2024-06-26 01:58 | XMS_ITS | Encounter Summary ---
Author Organization [facility] Address [address] [place] [address] Phone Care Team Providers Care Director Sales Training Name Role Phone Julio César Briseno MD Primary Care Provider Eren Cr MD Unavailable [phone] Yohana Bowen MD Unavailable Reason for Visit * Reason Onset Date Comments medication question 12/27/2022 Encounter Details Date Type Department Care Team (Late st Contact Info) Description 12/27/2022 Telephone Research [facility] Oncology [address] [place] [address] Eren Cr MD [address] [place], [place] [id number] medication question Social History Tobacco Use Types [...] file 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
--- OUTSIDE RECORDS SUMMARY | 2024-06-26 01:58 | XMS_ITS | Encounter Summary ---
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 Eren Cr MD [address] [facility] [address] [place] [address] Phone: tel: fax: [facility] and [facility] [address] [facility] Advanced Medicine 7th [place] [address] Phone: tel: Referral ID Status Reason Start Date Expiration Date Visits Re quested Visits Authorized [id number] Closed 06/21/2021 06/26/2024 1 99 Encounter Details Date Type Department Care Team (Latest Contact Info) Description 01/10/2023 11:00 AM CDT Research Med Pick-Up/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 Electrical Construction 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
--- OUTSIDE RECORDS SUMMARY | 2024-06-26 01:58 | XMS_ITS | Encounter Summary ---
Author Organization [facility] Address [address] [place] [address] Phone Care Team Providers Care Chemical Handler Name Role Phone Julio César Briseno MD Primary Care Provider Eren Cr MD Unavailable [phone] Yohana Bowen MD Unavailable Alejo Mi MD Unavailable [phone] Encounter Details Date Type Department Care Team (Late st Contact Info) Description 03/07/2023 Orders Only [facility] Oncology [address] [place] [address] Eren Cr MD [address] [place] [address] Social History Tobacco Use Types Packs/Day Years [...] on file 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 Gender Identity Not on file Sexual Orientation Straight 02/19/2021 9: 29 AM CDT Occupation Industry Job Start Date Job End Date retired Not on file Not on file Not on file documented as of this encounter Plan of Treatment Not on file documented as of this encounter Visit Diagnoses Not on filedocumented in this encounter Care Teams Chemical Handler Relationship Specialty Start Date End Date Julio César Briseno MD PCP - General 10/01/16 Eren Cr MD Referring Physician Medical Oncology 11/25/18 Yohana Bowen MD Radiation Oncologist Radiation Oncology 11/25/18 Alejo Mi MD [address] [address] Referring Physician Nephrology 03/07/23 documented as of this encounter
--- OUTSIDE RECORDS SUMMARY | 2024-06-26 01:58 | XMS_ITS | Encounter Summary ---
Author Organization [facility] Address [address] [place] [address] Phone Care Team Providers Care Cable Weaver Name Role Phone Julio César Briseno MD Primary Care Provider [phone] Eren Cr MD Unavailable [phone] Yohana Bowen MD Unavailable Reason for Referral * Diagnostic Imaging (Routine) - Closed Specialty Diagnoses / Procedures Referred By Evelyne t Referred To Contact Diagnoses Osteopenia, unspecified location Procedures Dexa Axial Skeleton Bone Density 1 or 2 Site Oksana Rivas NP Phone: tel: fax: [facility] (All Locations) Referral ID Status Reason Start Date Expiration Date Visits Re quested Visits Authorized [id number] Closed 03/06/2023 04/04/2024 1 1 Reason for Visit * Reason Comments Follow-up Encounter Details Date Type Department Care Team (Late st Contact Info) Description 03/06/2023 10:00 AM CDT Office Visit [facility] Obstetrics and Gynecology [facility] 13th [place] [address] [place] [address] Oksana Rivas NP [facility] [address] [address] Osteopenia, unspecified location (Primary Dx); Colostomy in [...] on file 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 07/12/2022 cycle 13 Cabozantinib/placebo 20 mg daily dose . 08/07/2022 cycle 14 Cabozantinib/placebo 20 mg daily [...] Sig Dispense Refill 0.9 % sodium chloride ([facility] sodium chloride 0.9%) injection Infuse 10 mL into a venous catheter once a week On saturday ascorbic acid, vitamin C, 500 mg capsule Take 1 tablet by mouth individual pension consultant before breakfast cholecalciferol (VITAMIN D-3) 1,000 unit [...] Application topically daily as needed (rash) coenzyme E09-bzsaizj E 100-5 mg-unit capsule Take 1 tablet by mouth individual pension consultant before breakfast denosumab (Xgeva) 120 mg/1.7 mL [...] week Fluids every -Heparin to flush HYDROcodone-acetaminophen (Cozad) 5-325 mg per tablet Take 1 tablet by mouth every 6 (six) hours asneeded for pain 15 tablet 0 [facility] cabozantinib/placebo (/[id number]) 20 mg tablet Take 1 tablet (20 mg total) bymouth nightly Take on an empty stomach (no food for 2 hours before and 1 hour after each dose). Avoid Jas's Wort, grapefruit products and [place] oranges while on treatment. placed on hold 09/26/22 for covid levothyroxine (SYNTHROID) 88 mcg tablet Take 1 tablet (88 mcg total) by mouth individual pension consultant before breakfast (Patient taking differently: Take 1 tablet (88 mcg total) by mouth individual pension consultant before breakfast) 90 tablet 1 lidocaine-prilocaine (lidocaine-prilocaine) [...] venous catheter once a week Patient to [id number] of Normal Saline via CADD Coreas pump [...] (HCC) documented in this encounter Care Teams Cable Weaver Relationship Specialty Start Date End Date Julio César Briseno MD PCP - General 10/01/16 Eren Cr MD Referring Physician Medical Oncology 11/25/18 Yohana Bowen MD Radiation Oncologist Radiation Oncology 11/25/18 documented as of this encounter
--- OUTSIDE RECORDS SUMMARY | 2024-06-26 01:58 | XMS_ITS | Encounter Summary ---
Author Organization [facility] Address [address] [place] [address] Phone Care Team Providers Care Medical Aides Teacher Name Role Phone Julio César Briseno MD Primary Care Provider Eren Cr MD Unavailable [phone] Yohana Bowen MD Unavailable Encounter Details Date Type Department Care Team (Late st Contact Info) Description 02/07/2023 Orders Only [facility] Oncology [address] [place] [address] Eren Cr MD [address] [place] [address] Social History Tobacco Use Types [...] on file 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
--- OUTSIDE RECORDS SUMMARY | 2024-06-26 01:58 | XMS_ITS | Encounter Summary ---
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) Neuroendocrine carcinoma (HCC) Procedures CT chest abdomen pelvis with contrast Eren Cr MD [address] [place] [address] Phone: tel: fax: [facility] Referral ID Status Reason Start Date Expiration Date Visits Re quested Visits Authorized [id number] Closed 02/07/2023 03/08/2024 1 1 Reason for Visit * MRI/CAT/PET Scan (Routine) - Closed Specialty Diagnoses / Procedures Referred By Contac Referred To Contact Radiology Diagnoses 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) Neuroendocrine carcinoma (HCC) Procedures CT chest abdomen pelvis with contrast Eren Cr MD [address] [facility] [address] [place] [address] Phone: tel: fax: [facility] Referral ID Status Reason Start Date Expiration Date Visits Re quested Visits Authorized [id number] Closed 02/07/2023 03/08/2024 1 1 Encounter Details Date Type Department Care Team (Latest Contact Info) Description 03/01/2023 11:04 AM CDT - 03/01/2023 11:59 PM CDT Hospital Encounter [facility] Radiology at [facility] [address] [place] [address] Neuro-endocrine carcinoma (HCC); Malignant neoplasm [...] file 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..] -Heparin to flush 06/20/20 24 HYDROcodone-acetami nophen ([place]) 5-325 mg per tabletIndications:P ain Take 1 tablet by mouth every 6 (six) hours as needed for pain 15 tablet 02/05/2023 05/24/20 23 [facility] cabozantinib/placeb o (2018-02-122/[id number]) 20 mg tabletIndications:c ancer study Take 1 tablet (20 mg total) by mouth nightly Take on an empty stomach (no food for 2 hours before and 1 hour after each dose).?? Avoid Jas's Wort, grapefruit products and [place] oranges while on treatment. 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
--- OUTSIDE RECORDS SUMMARY | 2024-06-26 01:58 | XMS_ITS | Encounter Summary ---
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 * Home [...] Site 0.9 % sodium chloride ([facility] sodium chloride 0.9%) injection 10 mL, intravenous, [...] Longterm Safety needs related to infusion administration 11/14/2022 Active - 1 problem intervention scheduled/documen omar in this visit Learning/Teachin g Needs - IV Therapy Disciplines: Longterm Teaching and learning needs for performing home IV therapy 11/14/2022 Active - 6 problem interventions scheduled/documen omar in this visit Monitor patient's vital signs every home health visit Disciplines: SN, PT, OT, BLENDING COORDINATOR, CORPORATE LOGISTICS MANAGER, Skilled Disciplines Monitor patient's vital signs [...] visit during episode of care Description: Home ambulatory care coordinator to measure vital signs during every home [...] and supplies before infusing, and waste disposal. Problem:Learning/[facility] soco Needs - IV Therapy Completed Pt [...] include good handwashing, aseptic technique as per [facility] Home Infusion Policies and Procedures, and troubleshooting/manag ement. Instruct on IV flush Description: Instruct patient/caregiver in how to perform flushing of IV line according to MD orders or protocol. Problem:Learning/[employer] soc[facility] Needs - IV Therapy Completed Pt verbalizes good understanding of IV flush procedure using aseptic technique as per [facility] HH Infusion policy. Instruct Infection Prevention [...] Scheduled documented in this encounter Care Teams Mother Repairer Relationship Specialty Start Date End Date Julio César Briseno MD PCP - General 10/01/16 Eren Cr MD Referring Physician Medical Oncology 11/25/18 Yohana Bowen MD Radiation Oncologist Radiation Oncology 11/25/18 documented as of this encounter
--- OUTSIDE RECORDS SUMMARY | 2024-06-26 01:58 | XMS_ITS | Encounter Summary ---
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 reviewed emissions testing and repair technician and procedure with him. verb good [...] signs of infection Completed reviewed good handwashing, emissions testing and repair technician with all aspects of iv admin, [...] spouse documented in this encounter Care Teams Industrial Diamond Polisher Relationship Specialty Start Date End Date Julio César Briseno MD PCP - General 10/01/16 Eren Cr MD Referring Physician Medical Oncology 11/25/18 Yohana Bowen MD Radiation Oncologist Radiation Oncology 11/25/18 documented as of this encounter
--- OUTSIDE RECORDS SUMMARY | 2024-06-26 01:58 | XMS_ITS | Encounter Summary ---
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) Procedures IN OCTREOTIDE INJECTION, DEPOT Octreotide 28 Day Cycles - Carcinoid Eren Cr MD [address] [place] [address] Phone: tel: fax: [address] [address] Phone: tel: fax: Referral ID Status Reason Start Date Expiration Date V isits Requested Visits Authorized [id number] Authorized 11/28/2017 02/05/2025 1 150 Encounter Details Date Type Department Care Team (Late st Contact Info) Description 02/07/2023 4:15 PM CDT Infusion [facility] Oncology [address] [place] [address] 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 [...] on file 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
--- OUTSIDE RECORDS SUMMARY | 2024-06-26 01:58 | XMS_ITS | Encounter Summary ---
Author Organization [facility] Address [address] [place] [address] Phone Care Team Providers Care Centerless Grinder Name Role Phone Julio César Briseno MD Primary Care Provider [phone] Eren Cr MD Unavailable [phone] Yohana Bowen MD Unavailable Encounter Details Date Type Department Care Team (Late st Contact Info) Description 02/06/[address] 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
--- OUTSIDE RECORDS SUMMARY | 2024-06-26 01:58 | XMS_ITS | Encounter Summary ---
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
--- OUTSIDE RECORDS SUMMARY | 2024-06-26 01:58 | XMS_ITS | Encounter Summary ---
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 Gender Identity Not on file Sexual [...] Dose Rate Site 0.9 % sodium chloride ([facility] sodium chloride 0.9%) injection 10 mL, [...] home health visit Disciplines: SN, PT, OT, FERMENTATION MANAGER, MINING ENGINEER, Skilled Disciplines Monitor patient's vital signs [...] visit during episode of care Description: Home commissioner of relocation services to measure vital signs during every home [...] Scheduled documented in this encounter Care Teams Security Nurse Relationship Specialty Start Date End Date Julio César Briseno MD PCP - General 10/01/16 Eren Cr MD Referring Physician Medical Oncology 11/25/18 Yohana Bowen MD Radiation Oncologist Radiation Oncology 11/25/18 documented as of this encounter
--- OUTSIDE RECORDS SUMMARY | 2024-06-26 01:58 | XMS_ITS | Encounter Summary ---
Author Organization [facility] Address [address] [place] [address] Phone Care Team Providers Care Stripping Cutter And Winder Name Role Phone Julio César Briseno MD Primary Care Provider Eren Cr MD Unavailable [phone] Yohana Bowen MD Unavailable Alejo Mi MD Unavailable [phone] Encounter Details Date Type Department Care Team (Late st Contact Info) Description 03/07/2023 Orders Only [facility] Oncology [address] [place] [address] Eren Cr MD [address] [place] [address] Social History Tobacco Use Types Packs/Day Years [...] on file 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 Gender Identity Not on file Sexual Orientation Straight 02/19/2021 9: 29 AM CDT Occupation Industry Job Start Date Job End Date retired Not on file Not on file Not on file documented as of this encounter Plan of Treatment Not on file documented as of this encounter Visit Diagnoses Not on filedocumented in this encounter Care Teams Stripping Cutter And Winder Relationship Specialty Start Date End Date Julio César Briseno MD PCP - General 10/01/16 Eren Cr MD Referring Physician Medical Oncology 11/25/18 Yohana Bowen MD Radiation Oncologist Radiation Oncology 11/25/18 Alejo Mi MD [address] [address] Referring Physician Nephrology 03/07/23 documented as of this encounter
--- OUTSIDE RECORDS SUMMARY | 2024-06-26 01:58 | XMS_ITS | Encounter Summary ---
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 [address] [facility] Advanced Medicine 7th [place] [address] Phone: tel: Referral ID Status Reason Start Date Expiration Date Visits Re quested Visits Authorized [id number] Closed 06/21/2021 06/26/2024 1 99 Encounter Details Date Type Department Care Team (Latest Contact Info) Description 02/07/2023 3:30 PM CDT Research Med Pick-Up/CTRU Casing Cooker 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 Gender Identity Not on file Sexual [...] Date First Ordered Date [id number] cabozantinib/pl acebo (2018-02-/[id number]) tablet 20 mg 1 02/07/2023 Nursing Count Last Ordered Date First Orde red Date ONCBCN STUDY COMMUNICATION 2 1 02/07/2023 ONCBCN TREATMENT PARAMETERS 1 1 02/07/2023 RESEARCH STUDY CLARIFICATION ORDER 1 2022 Appointment Requests Count Last Ordered Date Fi rst Ordered Date ONCBCN TAKE HOME STUDY DRUG APPT 1 02/08/20 23 documented in this encounter Care Teams Executive Pastry Chef Relationship Specialty Start Date End Date Julio César Briseno MD PCP - General 10/01/16 Eren Cr MD Referring Physician Medical Oncology 11/25/18 Yohana Bowen MD Radiation Oncologist Radiation Oncology 11/25/18 documented as of this encounter
--- OUTSIDE RECORDS SUMMARY | 2024-06-26 01:58 | XMS_ITS | Encounter Summary ---
Author Organization [facility] Home Care [facility] Address [address] [place] [address] Phone Care Team Providers Care Enrollment Management Manager Name Role Phone Julio César Briseno MD Primary Care Provider [phone] Eren Cr MD Unavailable [phone] Yohana Bowen MD Unavailable Reason for Visit * Reason Comments Chronic Fatigue Encounter Details Date Type Department Care Team (Late st Contact Info) Description 03/06/2023 2:00 PM CDT Home Care Visit [facility] [address] [address] [address] [place] [phone] Sherlyn Orozco RN SN HOME VISIT Social [...] file 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 Gender Identity Not on file Sexual Orientation [...] home health visit Disciplines: SN, PT, OT, PIG BREEDER, DATABASE MANAGER, Skilled Disciplines Monitor patient's vital signs [...] visit during episode of care Description: Home block breaker to measure vital signs during every [...] Scheduled documented in this encounter Care Teams Enrollment Management Manager Relationship Specialty Start Date End Date Julio César Briseno MD PCP - General 10/01/16 Eren Cr MD Referring Physician Medical Oncology 11/25/18 Yohana Bowen MD Radiation Oncologist Radiation Oncology 11/25/18 documented as of this encounter
--- OUTSIDE RECORDS SUMMARY | 2024-06-26 01:58 | XMS_ITS | Encounter Summary ---
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 Gender Identity Not on file Sexual [...] nightly 0.9 % sodium chloride ([facility] sodium chloride 0.9%) injectionIndication s:line care Infuse 10 mL into a venous catheter once a week On saturday06/20/20 24 amLODIPine (NORVASC) 5 mg tabletIndications:h ypertension Take 0.5 tablets (2.5 mg total) by mouth nightly 07/27/2022 06/11/20 23 ascorbic acid, vitamin C, 500 mg capsuleIndications: supplement Take 1 tablet by mouth negative checker before breakfast 07/04/2016 06/20/20 24 ciprofloxacin-dexAM ETHasone (CIPRODEX) otic suspension Administer 4 drops into the right ear 2 (two) times a day Begin 1 week post op 7.5 mL 3 02/05/2023 06/11/20 23 clotrimazole-betame thasone (LOTRISONE) cream Apply 1 Application topically daily as needed (rash) 06/20/20 24 coenzyme [id number] E 100-5 mg-unit capsuleIndications: supplement Take 1 tablet by mouth negative checker before breakfast 06/20/20 24 diphenoxylate-atrop ine (LOMOTIL) [...] -Heparin to flush 06/20/20 24 HYDROcodone-acetami nophen ([place]) 5-325 mg per tabletIndications:P ain Take 1 tablet by mouth every 6 (six) hours as needed for pain 15 tablet 02/05/2023 05/24/20 23 [id number] cabozantinib/placeb o (/[id number]) 20 mg tabletIndications:c ancer study Take 1 tablet (20 mg total) by mouth nightly Take on an empty stomach (no food for 2 hours before and 1 hour after each dose).?? Avoid Jas's Wort, grapefruit products and [place] oranges while on treatment. 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 Current interpretive data was last revised 2018. Creatinine Ur 181.9 mg/dL [facility] Comment: Interpretive Data No reference range established. Current interpretive data was last revised 2018. Protein/creatinin e ratio 94.0 0.0 - 180.0 mg/g CR [facility] Urine 03/07/2023 9:25 AM CDT 03/07/2023 10:04 AM CDT Eren Cr MD LAB URINE ORDERABLES Final Re sult [facility] Department [place] [address] * (ABNORMAL) eGFR (03/07/2023 9:23 AM CDT) Pathologist [facility] eGFR 45(L) 90 - 130 mL/min/1. 73 m2 [facility] Comment: Interpretive Data Reference Interval [...] MD LAB BLOOD ORDERABLES Final Re sult [facility] [place] [address] * (ABNORMAL) Differential, auto (03/07/2023 9:23 AM CDT) Neutrophil abs 1.6(L) 1.7 - 6.5 K/cumm [facility] Comment:Testing performed by : [facility], [address] [place] [address] Imm gran abs 0.0 0.0 - 0.1 K/cumm [facility] Lymphocyte abs 0.4(L) 0.8 - 3.3 K/cumm [facility] Monocyte abs 0.4 0.2 - 0.8 K/cumm [facility] Eosinophil abs 0.2 0.0 - 0.5 K/cumm [facility] Basophil abs 0.0 0.0 - 0.1 K/cumm [facility] Neutrophil pct 62.3 % [facility] Comment: Consistent with previous result Interpretive Data Percent cell count reference ranges are not reported, since discordance with absolute values may lead to misinterpretation of CBC data. Current Interpretive Data was last revised on 2017. Imm gran pct 0.0 % [facility] Comment: Interpretive Data Percent cell count reference ranges are not reported, since discordance with absolute values may lead to misinterpretation of CBC data. Current Interpretive Data was last revised on 2017. Lymphocyte pct 16.1 % [facility] Comment: Interpretive Data Percent cell count reference ranges are not reported, since discordance with absolute values may lead to misinterpretation of CBC data. Current Interpretive Data was last revised on 2017. Monocyte pct 13.7 % [facility] Comment: Interpretive Data Percent cell count reference ranges are not reported, since discordance with absolute values may lead to misinterpretation of CBC data. Current Interpretive Data was last revised on 2017. Eosinophil pct 7.1 % [facility] Comment: Interpretive Data Percent cell count reference ranges are not reported, since discordance with absolute values may lead to misinterpretation of CBC data. Current Interpretive Data was last revised on 2017. Basophil pct 0.8 % [facility] Comment: Interpretive Data Percent cell count reference ranges are not reported, since discordance with absolute values may lead to misinterpretation of CBC data. Current Interpretive Data was last revised on 2017. Blood 03/07/2023 9:23 AM CDT 03/07/2023 9:25 AM CDT us Eren Cr MD LAB BLOOD ORDERABLES Final Re sult [facility] [place] [address] * (ABNORMAL) CBC with auto differential (03/07/2023 9:23 AM CDT) WBC 2.6(L) 3.8 - 9.9 K/cumm [facility] Comment:Testing performed by : [address] [address] Hgb 10.9(L) 11.9 - 15.5 g/dL [facility] Comment:Testing performed by : [address] [address] Hct 33.4(L) 35.6 - 45.5 % [facility] Comment:Testing performed by : [address] [address] Plt 89(L) 150 - 400 K/cumm [facility] Comment:Testing performed by : [address] [address] MPV 10.3 9.1 - 12.3 fL [facility] RBC 3.33(L) 3.90 - 5.20 M/cumm [facility] MCV 100.3(H) 81.3 - 96.4 fL [facility] MCH 32.7 27.1 - 33.3 pg [facility] MCHC 32.6 32.3 - 35.7 g/dL [facility] RDW CV 14.7 11.1 - 14.9 % [facility] RDW SD 53.5(H) 35.7 - 48.1 fL [facility] NRBC abs 0.00 0.00 - 0.01 K/cumm [facility] Blood 03/07/2023 9:23 AM CDT 03/07/2023 9:25 AM CDT Eren Cr MD LAB BLOOD ORDERABLES Final Re sult [facility] [place] [address] * (ABNORMAL) Comprehensive metabolic panel (03/07/2023 9:23 AM CDT) Pathologist [facility] Sodium 141 135 - 145 mmol/L [facility] Comment:Testing performed by : [facility], [address] [place] [address] Potassium, pl 4.1 3.3 - 4.9 mmol/L [facility] Chloride 108 97 - 110 mmol/L [facility] CO2 28 22 - 32 mmol/L [facility] Anion gap 5 2 - 15 mmol/L [facility] BUN 12 6 - 25 mg/dL [facility] Creatinine 1.25(H) 0.60 - 1.10 mg/dL [facility] Glucose 135 70 - 199 mg/dL [facility] Comment: Interpretive Data Fasting glucose [...] 2022. Calcium 9.7 8.5 - 10.3 mg/dL [facility] Bilirubin, total 0.6 0.1 - 1.2 mg/dL [facility] Protein, pl 6.3(L) 6.5 - 8.5 g/dL [facility] Albumin 4.0 3.5 - 5.0 g/dL [facility] Alk phos 59 40 - 130 Units/L [facility] ALT 24 7 - 45 Units/L [facility] AST 34 10 - 45 Units/L [facility] Blood 03/07/2023 9:23 AM CDT 03/07/2023 9:25 AM CDT Eren Cr MD LAB BLOOD ORDERABLES Final Re sult Performing Organization Address [facility] [[email or web address]] Co de Phone Number [facility] Department [place] [address] * (ABNORMAL) Magnesium (03/07/2023 9:23 AM CDT) Magnesium 1.3(L) 1.4 - 2.5 mg/dL [facility] Comment:Testing performed by : [facility], [address] [place] [address] Blood 03/07/2023 9:23 AM CDT 03/07/2023 9:25 AM CDT Eren Cr MD LAB BLOOD ORDERABLES Final Re sult Performing Organization Address [facility]/ZIP Co de Phone Number [facility] [place] [address] * (ABNORMAL) Lipid panel (03/07/2023 9:23 AM CDT) Cholesterol 165 30 - 199 mg/dL [facility] Comment: Interpretive Data Ages < [...] on 2018. LDL, calculated 73 <=129 mg/dL [facility] Comment: Interpretive Data Ages < [...] revised on 2018. Non-HDL Cholesterol 107 mg/dL [facility] Comment: Interpretive Data Ages < [...] last revised on 2018. Chol/HDL ratio 3 [facility] Blood 03/07/2023 9:23 AM CDT 03/07/2023 10:49 AM CDT Eren Cr MD LAB BLOOD ORDERABLES Final Re sult Performing Organization Address [facility] [[email or web address]] Co de Phone Number [facility] [place] [address] * (ABNORMAL) Phosphorus (03/07/2023 9:23 AM CDT) Pathologist [facility] Phosphorus, pl 1.8(L) 2.3 - 4.5 mg/dL [facility] Comment:Testing performed by : [facility], [address] [place] [address] Blood 03/07/2023 9:23 AM CDT 03/07/2023 9:25 AM CDT Eren Cr MD LAB BLOOD ORDERABLES Final Re sult Performing Organization Address [facility] [[email or web address]] Co de Phone Number [facility] [place] [address] * (ABNORMAL) Vitamin D 25 hydroxy (03/07/2023 9:23 AM CDT) [facility] Vitamin D 25-OH 19(L) 30 - 80 ng/mL [facility] Blood 03/07/2023 9:23 AM CDT 03/07/2023 10:49 AM CDT Eren Cr MD LAB BLOOD ORDERABLES Final Re sult Performing Organization Address [facility] [[email or web address]] [place] [address] * (ABNORMAL) Chromogranin A (03/07/2023 9:23 AM CDT) [facility] Chromogranin A 1552(H) <93 ng/mL [facility] Comment: Impaired renal or hepatic [...] a homogeneous time-resolved immunofluorescent assay manufactured by [employer] and performed on the [employer] Compact Plus. ? Values obtained with different assay methods or kits may be different and cannot be used interchangeably. ? Test results cannot be interpreted as absolute evidence for the presence or absence of malignant disease. Test Performed by: [place] [address] [employer] Mounter: Immanuel Novak M.D. 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
--- OUTSIDE RECORDS SUMMARY | 2024-06-26 01:58 | XMS_ITS | Encounter Summary ---
Author Organization [facility] Address [address] [place] [address] Phone Care Team Providers Care Steel Molder Name Role Phone Julio César Briseno MD Primary Care Provider Eren Cr MD Unavailable [phone] Yohana Bowen MD Unavailable Alejo Mi MD Unavailable [phone] Encounter Details Date Type Department Care Team (Late st Contact Info) Description 03/07/2023 Orders Only [facility] Oncology [address] [place] [address] Eren Cr MD [address] [place] [address] Social History Tobacco Use Types Packs/Day Years [...] on file 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 Gender Identity Not on file Sexual Orientation Straight 02/19/2021 9: 29 AM CDT Occupation Industry Job Start Date Job End Date retired Not on file Not on file Not on file documented as of this encounter Plan of Treatment Not on file documented as of this encounter Visit Diagnoses Not on filedocumented in this encounter Care Teams Steel Molder Relationship Specialty Start Date End Date Julio César Briseno MD PCP - General 10/01/16 Eren Cr MD Referring Physician Medical Oncology 11/25/18 Yohana Bowen MD Radiation Oncologist Radiation Oncology 11/25/18 Alejo Mi MD [address] [address] Referring Physician Nephrology 03/07/23 documented as of this encounter
--- OUTSIDE RECORDS SUMMARY | 2024-06-26 01:58 | XMS_ITS | Encounter Summary ---
Author Organization [facility] Healthcare Address [address] [place] [address] Care Team Providers Care Rail Operator Name Role Phone Julio César Briseno MD Primary Care Provider [phone] Eren Cr MD Unavailable [phone] Yohana Bowen MD Unavailable Encounter Details Date Type Department Care Team (Latest Contact Info) Description 02/07/2023 2:20 PM CDT - 02/07/2023 11:59 PM CDT Hospital Encounter [facility] [address] [place] [address] Neuroendocrine carcinoma (HCC); Malignant neoplasm metastatic to [...] on file Legal Sex Female 2: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 Gender Identity Not on file Sexual Orientation [...] 02/05/2023 02/11/20 23 0.9 % sodium chloride ([facility] sodium chloride 0.9%) injectionIndication s:line care Infuse 10 mL into a venous catheter once a week On saturday06/20/20 24 amLODIPine (NORVASC) 5 mg tabletIndications:h ypertension Take 0.5 tablets (2.5 mg total) by mouth nightly 07/27/2022 06/11/20 23 ascorbic acid, vitamin C, 500 mg capsuleIndications: supplement Take 1 tablet by mouth caramel coloring operator before breakfast 07/04/2016 06/20/20 24 ciprofloxacin-dexAM ETHasone (CIPRODEX) otic suspension Administer 4 drops into the right ear 2 (two) times a day Begin 1 week post op 7.5 mL 3 02/05/2023 06/11/20 23 clotrimazole-betame thasone (LOTRISONE) cream Apply 1 Application topically daily as needed (rash) 06/20/20 24 coenzyme T33-[id number] E 100-5 mg-unit capsuleIndications: supplement Take 1 tablet by mouth caramel coloring operator before breakfast 06/20/20 24 diphenoxylate-atrop ine [...] -Heparin to flush 06/20/20 24 HYDROcodone-acetami nophen (Shafer) 5-325 mg per tabletIndications:P ain Take 1 tablet by mouth every 6 (six) hours as needed for pain 15 tablet 02/05/2023 05/24/20 23 [facility] cabozantinib/placeb o (/[id number]) 20 mg tabletIndications:c ancer study Take 1 tablet (20 mg total) by mouth nightly Take on an empty stomach (no food for 2 hours before and 1 hour after each dose).?? Avoid [place]'s Wort, grapefruit products and [place] oranges while on treatment. 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 73 m2 [facility] Comment: Interpretive Data Reference Interval Normal [...] Final Re sult [facility] Department [place] [address] * (ABNORMAL) Differential, auto (02/07/2023 1:39 PM CDT) Pathologist [facility] Neutrophil abs 1.9 1.7 - 6.5 K/cumm [facility] Comment:Testing performed by : [facility], [address] [place] [address] Imm gran abs 0.0 0.0 - 0.1 K/cumm [facility] Lymphocyte abs 0.5(L) 0.8 - 3.3 K/cumm [facility] Monocyte abs 0.5 0.2 - 0.8 K/cumm [facility] Eosinophil abs 0.2 0.0 - 0.5 K/cumm [facility] Basophil abs 0.0 0.0 - 0.1 K/cumm [facility] Neutrophil pct 63.1 % [facility] Comment: Interpretive Data Percent cell count reference ranges are not reported, since discordance with absolute values may lead to misinterpretation of CBC data. Current Interpretive Data was last revised on 2017. Imm gran pct 0.6 % [facility] Comment: Interpretive Data Percent cell count reference ranges are not reported, since discordance with absolute values may lead to misinterpretation of CBC data. Current Interpretive Data was last revised on 2017. Lymphocyte pct 15.6 % [facility] Comment: Interpretive Data Percent cell count reference ranges are not reported, since discordance with absolute values may lead to misinterpretation of CBC data. Current Interpretive Data was last revised on 2017. Monocyte pct 14.9 % [facility] Comment: Interpretive Data Percent cell count reference ranges are not reported, since discordance with absolute values may lead to misinterpretation of CBC data. Current Interpretive Data was last revised on 2017. Eosinophil pct 5.2 % [facility] Comment: Interpretive Data Percent cell count reference ranges are not reported, since discordance with absolute values may lead to misinterpretation of CBC data. Current Interpretive Data was last revised on 2017. Basophil pct 0.6 % [facility] Comment: Interpretive Data Percent cell count reference ranges are not reported, since discordance with absolute values may lead to misinterpretation of CBC data. Current Interpretive Data was last revised on 2017. Blood 02/07/2023 1:39 PM CDT 02/07/2023 1:40 PM CDT Eren Cr MD LAB BLOOD ORDERABLES Final Re sult [facility] Department [place] [address] * Magnesium (02/07/2023 1:39 PM CDT) [facility] Magnesium 1.7 1.4 - 2.5 mg/dL [facility] Comment:Testing performed by : [facility], [address] [place] [address] Blood 02/07/2023 1:39 PM CDT 02/07/2023 1:40 PM CDT Eren Cr MD LAB BLOOD ORDERABLES Final Re sult Performing Organization Address City/State/[facility] Co de Phone Number [facility] Department [place] [address] * (ABNORMAL) Lipid panel (02/07/2023 1:39 PM CDT) [facility] Cholesterol 167 30 - 199 mg/dL [facility] [...] revised on 2018. Triglycerides 193(H) <=149 mg/dL [facility] Comment: Interpretive Data Ages [...] on 2018. HDL 56 >=40 mg/dL [facility] Comment: Interpretive Data Ages [...] 2018. LDL, calculated 72 <=129 mg/dL [facility] Comment: Interpretive Data Ages [...] revised on 2018. Non-HDL Cholesterol 111 mg/dL [facility] Comment: Interpretive Data [...] Chol/HDL ratio 3 [facility] Blood 02/07/2023 1:39 PM CDT 02/07/2023 3:38 PM CDT Eren Cr MD LAB BLOOD ORDERABLES Final Re sult Performing Organization Address [facility] de Phone Number [facility] Department of Laboratories [place], [place] [id number] * (ABNORMAL) Phosphorus (02/07/2023 1:39 PM CDT) [facility] Phosphorus, pl 2.1(L) 2.3 - 4.5 mg/dL [facility] Comment:Testing performed by : [facility], [address] [place] [address] Blood 02/07/2023 1:39 PM CDT 02/07/2023 1:40 PM CDT Eren Cr MD LAB BLOOD ORDERABLES Final Re sult Performing Organization Address [facility]/State/ZIP Co de Phone Number [facility] Department [place] [address] * (ABNORMAL) Vitamin D 25 hydroxy (02/07/2023 1:39 PM CDT) [facility] Vitamin D 25-OH 22(L) 30 - 80 ng/mL [facility] Blood 02/07/2023 1:39 PM CDT 02/07/2023 3:38 PM CDT Eren Cr MD LAB BLOOD ORDERABLES Final Re sult [facility] Department [place] [address] * (ABNORMAL) CBC with auto differential (02/07/2023 1:39 PM CDT) [facility] WBC 3.1(L) 3.8 - 9.9 K/cumm [facility] Comment:Testing performed by : [address] [address] Hgb 11.3(L) 11.9 - 15.5 g/dL [facility] Comment:Testing performed by : [address] [address] Hct 34.9(L) 35.6 - 45.5 % [facility] Comment:Testing performed by : [address] [address] Plt 95(L) 150 - 400 K/cumm [facility] Comment:Testing performed by : [address] [address] MPV 10.2 9.1 - 12.3 fL [facility] RBC 3.48(L) 3.90 - 5.20 M/cumm [facility] MCV 100.3(H) 81.3 - 96.4 fL [facility] MCH 32.5 27.1 - 33.3 pg [facility] MCHC 32.4 32.3 - 35.7 g/dL [facility] RDW CV 14.7 11.1 - 14.9 % [facility] RDW SD 52.7(H) 35.7 - 48.1 fL [facility] NRBC abs 0.00 0.00 - 0.01 K/cumm [facility] Blood 02/07/2023 1:39 PM CDT 02/07/2023 1:40 PM CDT Eren Cr MD LAB BLOOD ORDERABLES Final Re sult [facility] Department [place] [address] * (ABNORMAL) Comprehensive metabolic panel (02/07/2023 1:39 PM CDT) Sodium 140 135 - 145 mmol/L [facility] Comment:Testing performed by : [facility], [address] [place] [address] Potassium, pl 4.8 3.3 - 4.9 mmol/L [facility] Chloride 107 97 - 110 mmol/L [facility] CO2 27 22 - 32 mmol/L [facility] Anion gap 6 2 - 15 mmol/L [facility] BUN 15 6 - 25 mg/dL [facility] Creatinine 1.30(H) 0.60 - 1.10 mg/dL [facility] Glucose 77 70 - 199 mg/dL [facility] [...] 2022. Calcium 10.0 8.5 - 10.3 mg/dL [facility] Bilirubin, total 0.5 0.1 - 1.2 mg/dL [facility] Protein, pl 6.6 6.5 - 8.5 g/dL [facility] Albumin 4.0 3.5 - 5.0 g/dL [facility] Alk phos 62 40 - 130 Units/L [facility] ALT 21 7 - 45 Units/L [facility] AST 29 10 - 45 Units/L [facility] Blood 02/07/2023 1:39 PM CDT 02/07/2023 1:40 PM CDT Eren Cr MD LAB BLOOD ORDERABLES Final Re sult [facility] Department [place] [address] * (ABNORMAL) Chromogranin A (02/07/2023 1:39 PM CDT) Chromogranin A 902(H) <93 ng/mL [facility] Comment: Impaired renal or hepatic function or treatment with proton pump inhibitors may result in artifactual elevations of Chromogranin A. ADDITIONAL INFORMATION This test was developed and its performance characteristics determined by [facility] in a manner consistent with CLIA [...] a homogeneous time-resolved immunofluorescent assay manufactured by [employer] and performed on the [employer]act Plus. ? Values obtained with different assay methods or kits may be different and cannot be used interchangeably. ? Test results cannot be interpreted as absolute evidence for the presence or absence of malignant disease. Test Performed by: [facility] [address] [place] [address] Residential Supervisor: Immanuel Novak M.D. 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
--- OUTSIDE RECORDS SUMMARY | 2024-06-26 01:58 | XMS_ITS | Encounter Summary ---
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..] on file 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
--- OUTSIDE RECORDS SUMMARY | 2024-06-26 01:58 | XMS_ITS | Encounter Summary ---
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 Gender Identity Not on file Sexual [...] Custodial Safety needs related to infusion administration 11/14/2022 Active - 1 problem intervention scheduled/documen omar in this visit Learning/Teachin g Needs - IV Therapy Disciplines: Custodial Teaching and learning needs for performing home IV therapy 11/14/2022 Active - 6 problem interventions scheduled/documen omar in this visit Monitor patient's vital signs every home health visit Disciplines: SN, PT, OT, FIREPROOF DOOR MAKER, COMPUTER PROGRAMMING MANAGER, Skilled Disciplines Monitor patient's vital signs [...] visit during episode of care Description: Home station mechanic apprentice to measure vital signs during [...] documented in this encounter Care Teams Deck Molder Relationship Specialty Start Date End Date Julio César Briseno MD PCP - General 10/01/16 Eren rC MD Referring Physician Medical Oncology 11/25/18 Yohana Bowen MD Radiation Oncologist Radiation Oncology 11/25/18 documented as of this encounter
--- OUTSIDE RECORDS SUMMARY | 2024-06-26 01:58 | XMS_ITS | Encounter Summary ---
Author Organization [facility] Address [address] [place] [address] Phone Care Team Providers Care Fiber Designer Name Role Phone Julio Césra Briseno MD Primary Care Provider [phone] Eren Cr MD Unavailable [phone] Yohana Bowen MD Unavailable [place] Ramos MD Unavailable [phone] Reason for Visit * Episode Based Medications (Routine) - Closed Specialty Diagnoses / Procedures Referred By Contac t Referred To Contact Diagnoses Neuro-endocrine carcinoma (HCC) Procedures study [id number] phase III cabozantinib Eren Cr MD [address] [place] [address] Phone: tel: fax: [facility] [address] [facility] 7th [place] [address] Phone: tel: Referral ID Status Reason Start Date Expiration Date Visits Re quested Visits Authorized [id number] Closed 06/21/2021 06/26/2024 1 99 Encounter Details Date Type Department Care Team (Latest Contact Info) Description 03/07/2023 9:15 AM CDT Clinical Support [facility] Oncology [address] [place] [address] Neuro-endocrine carcinoma (HCC) Social History Tobacco Use [...] on file 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
--- OUTSIDE RECORDS SUMMARY | 2024-06-26 01:58 | XMS_ITS | Encounter Summary ---
Author Organization [facility] Address [address] [place] [address] Phone Care Team Providers Care Underpresser Hand Name Role Phone Julio César Briseno MD Primary Care Provider [phone] Eren Cr MD Unavailable [phone] Yohana Bowen MD Unavailable Alejo Mi MD Unavailable [phone] Encounter Details Date Type Department Care Team (Late st Contact Info) Description 03/08/2023 Orders Only [facility] Otolaryngology [address] [place] [address], [address] [place] [address] Xochitl Andersen CMA Social History [...] on file 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 Gender Identity Not on file Sexual Orientation Straight 02/19/2021 9: 29 AM CDT Occupation Industry Job Start Date Job End Date retired Not on file Not on file Not on file documented as of this encounter Plan of Treatment Not on file documented as of this encounter Visit Diagnoses Not on filedocumented in this encounter Care Teams Underpresser Hand Relationship Specialty Start Date End Date Julio César Briseno MD PCP - General 10/01/16 Eren Cr MD Referring Physician Medical Oncology 11/25/18 Yohana Bowen MD Radiation Oncologist Radiation Oncology 11/25/18 Alejo Mi MD [address] [address] Referring Physician Nephrology 03/07/23 documented as of this encounter
--- OUTSIDE RECORDS SUMMARY | 2024-06-26 01:58 | XMS_ITS | Encounter Summary ---
Author Organization [facility] [employer] [facility] Address [address] [place] [address] Phone Care Team Providers Care Desk Operator Name Role Phone Julio César Briseno MD Primary Care Provider Eren Cr MD Unavailable [phone] Yohana Bowen MD Unavailable Encounter Details Date Type Department Care Team (Late st Contact Info) Description 01/10/2023 Orders Only [facility] Oncology [address] [place] [address] Yoana Murray [facility] Social History Tobacco Use Types Packs/Day [...] on file 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
--- OUTSIDE RECORDS SUMMARY | 2024-06-26 01:58 | XMS_ITS | Encounter Summary ---
Author Organization [facility] Address [address] [place] [address] Phone Care Team Providers Care Bread Baker Name Role Phone Julio César Briseno MD Primary Care Provider Eren Cr MD Unavailable [phone] Yohana Bowen MD Unavailable Encounter Details Date Type Department Care Team (Late st Contact Info) Description 01/10/2023 Orders Only [facility] Oncology [address] [place] [address] Eren Cr MD [address] [place] [address] Neuro-endocrine carcinoma (HCC) (Primary Dx) [...] on file 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 Current interpretive data was last revised 2018. Creatinine Ur 101.8 mg/dL [facility] Comment: Interpretive Data No reference range established. Current interpretive data was last revised 2018. Protein/creatinin e ratio 62.9 0.0 - 180.0 mg/g CR [facility] Urine 01/14/2023 11:2 4 AM CDT 01/14/2023 11:43 AM CDT us Eren Cr MD LAB URINE ORDERABLES Final Re sult [facility] [place] [address] documented in this encounter Visit Diagnoses Diagnosis Neuro-endocrine carcinoma (HCC)- Primary Other malignant neoplasm of unspecified site documented in this encounter Care Teams Bread Baker Relationship Specialty Start Date End Date Julio César Briseno MD PCP - General 10/01/16 Eren Cr MD Referring Physician Medical Oncology 11/25/18 Yohana Bowen MD Radiation Oncologist Radiation Oncology 11/25/18 documented as of this encounter
--- OUTSIDE RECORDS SUMMARY | 2024-06-26 01:58 | XMS_ITS | Encounter Summary ---
Author Organization [facility] Address [address] [place] [address] Phone Care Team Providers Care Janitorial Manager Name Role Phone Julio César Briseno MD Primary Care Provider [phone] Eren Cr MD Unavailable [phone] Yohana Bowen MD Unavailable TaylorAlejo Ramos MD Unavailable [phone] Reason for Visit * Reason Comments OP Infusion * Episode Based Medications (Routine) - Authorized Specialty Diagnoses / Procedures Referred By Contac t Referred To Contact Diagnoses Hypomagnesemia Eren Cr MD [address] [facility] [address] [place] [address] Phone: tel: fax: [facility] [address] 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 female who presents for treatment of Magnesium 4 gram with NS 1 Liter over 90 minutes with zofran IV and compazine. Blood pressure repeated and checked manually. Research coordinator talked with patient and patient instructed to picking supervisor study oral medication from pharmacy upon discharge. [...] 03/07/2023 documented in this encounter Care Teams Janitorial Manager Relationship Specialty Start Date End Date Julio César Briseno MD PCP - General 10/01/16 Eren Cr MD Referring Physician Medical Oncology 11/25/18 Yohana Bowen MD Radiation Oncologist Radiation Oncology 11/25/18 Alejo Mi MD [address] [address] Referring Physician Nephrology 03/07/23 documented as of this encounter
--- OUTSIDE RECORDS SUMMARY | 2024-06-26 01:58 | XMS_ITS | Encounter Summary ---
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 * Home [...] Dose Rate Site 0.9 % sodium chloride ([facility] sodium chloride 0.9%) injection 10 [...] home health visit Disciplines: SN, PT, OT, HELP AID, VOCATIONAL SCHOOL TEACHER, Skilled Disciplines Monitor patient's vital signs [...] visit during episode of care Description: Home crutcher helper to measure vital signs during every home [...] include good handwashing, aseptic technique as per [facility] Home Infusion Policies and Procedures, and troubleshooting/manag ement. Instruct on IV flush Description: Instruct patient/caregiver in how to perform flushing of IV line according to MD orders or protocol. Problem:Learning/Teac soco Needs - IV Therapy Completed Pt verbalizes good understanding of IV flush procedure using aseptic technique as per [facility] HH Infusion policy. Instruct Infection Prevention [...] Scheduled documented in this encounter Care Teams Information Coder Relationship Specialty Start Date End Date Julio César Briseno MD PCP - General 10/01/16 Eren Cr MD Referring Physician Medical Oncology 11/25/18 Yohana Bowen MD Radiation Oncologist Radiation Oncology 11/25/18 documented as of this encounter
--- OUTSIDE RECORDS SUMMARY | 2024-06-26 01:58 | XMS_ITS | Encounter Summary ---
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
--- OUTSIDE RECORDS SUMMARY | 2024-06-26 01:58 | XMS_ITS | Encounter Summary ---
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 Gender Identity Not on file Sexual [...] by mouth nightly 0.9 % sodium chloride ([facility] sodium chloride 0.9%) injectionIndication s:line care Infuse 10 mL into a venous catheter once a week On saturday06/20/20 24 amLODIPine (NORVASC) 5 mg tabletIndications:h ypertension Take 0.5 tablets (2.5 mg total) by mouth nightly 07/27/2022 06/11/20 23 ascorbic acid, vitamin C, 500 mg capsuleIndications: supplement Take 1 tablet by mouth community service manager before breakfast 07/04/2016 06/20/20 24 clotrimazole-betame thasone (LOTRISONE) cream Apply 1 Application topically daily as needed (rash) 06/20/20 24 coenzyme [id number] E 100-5 mg-unit capsuleIndications: supplement Take 1 tablet by mouth community service manager before breakfast 06/20/20 24 diphenoxylate-atrop ine (LOMOTIL) [...] Fluids every -Heparin to flush 06/20/20 24 [facility] cabozantinib/placeb o (/[id number] 2) 20 mg tabletIndications:c ancer study Take 1 tablet (20 mg total) by mouth nightly Take on an empty stomach (no food for 2 hours before and 1 hour after each dose).?? Avoid Klahr's Wort, grapefruit products and [place] oranges while on treatment. 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 Take 1 tablet (88 mcg total) by mouth community service manager before breakfast 90 tablet 1 10/12/2022 09/12/19 [...] Free T4 1.23 0.90 - 1.70 ng/dL [facility] Blood 01/10/2023 9:26 AM CDT 01/10/2023 11:05 AM CDT us Eren Cr MD LAB BLOOD ORDERABLES Final Re sult [facility] Department [place] [address] * (ABNORMAL) eGFR (01/10/2023 9:26 AM CDT) Pathologist [facility] eGFR 41(L) 90 - 130 mL/min/1. 73 m2 [facility] Comment: Interpretive Data Reference Interval Normal ?>/= [...] Re sult [facility] Department [place] [address] * (ABNORMAL) Differential, auto (01/10/2023 9:26 AM CDT) Neutrophil abs 1.9 1.7 - 6.5 K/cumm [facility] Comment:Testing performed by : [facility], [address] [facility] [address] Imm gran abs 0.0 0.0 - 0.1 K/cumm [facility] Lymphocyte abs 0.3(L) 0.8 - 3.3 K/cumm [facility] Monocyte abs 0.4 0.2 - 0.8 K/cumm [facility] Eosinophil abs 0.2 0.0 - 0.5 K/cumm [facility] Basophil abs 0.0 0.0 - 0.1 K/cumm [facility] Neutrophil pct 67.2 % [facility] Comment: Consistent with previous result Interpretive Data Percent cell count reference ranges are not reported, since discordance with absolute values may lead to misinterpretation of CBC data. Current Interpretive Data was last revised on 2017. Imm gran pct 0.4 % [facility] Comment: Interpretive Data Percent cell count reference ranges are not reported, since discordance with absolute values may lead to misinterpretation of CBC data. Current Interpretive Data was last revised on 2017. Lymphocyte pct 10.7 % [facility] Comment: Interpretive Data Percent cell count reference ranges are not reported, since discordance with absolute values may lead to misinterpretation of CBC data. Current Interpretive Data was last revised on 2017. Monocyte pct 15.3 % [facility] Comment: Interpretive Data Percent cell count reference ranges are not reported, since discordance with absolute values may lead to misinterpretation of CBC data. Current Interpretive Data was last revised on 2017. Eosinophil pct 5.7 % [facility] Comment: Interpretive Data Percent cell count reference ranges are not reported, since discordance with absolute values may lead to misinterpretation of CBC data. Current Interpretive Data was last revised on 2017. Basophil pct 0.7 % [facility] Comment: Interpretive Data Percent cell count reference ranges are not reported, since discordance with absolute values may lead to misinterpretation of CBC data. Current Interpretive Data was last revised on 2017. Blood 01/10/2023 9:26 AM CDT 01/10/2023 9:27 AM CDT us Eren Cr MD LAB BLOOD ORDERABLES Final Re sult [facility] Department [place] [address] * (ABNORMAL) CBC with auto differential (01/10/2023 9:26 AM CDT) WBC 2.8(L) 3.8 - 9.9 K/cumm [facility] Comment:Testing performed by : [address] [address] Hgb 11.2(L) 11.9 - 15.5 g/dL [facility] Comment:Testing performed by : [address] [address] Hct 33.7(L) 35.6 - 45.5 % [facility] Comment:Testing performed by : [address] [address] Plt 93(L) 150 - 400 K/cumm [facility] Comment:Testing performed by : [address] [address] MPV 10.3 9.1 - 12.3 fL [facility] RBC 3.46(L) 3.90 - 5.20 M/cumm [facility] MCV 97.4(H) 81.3 - 96.4 fL [facility] MCH 32.4 27.1 - 33.3 pg [facility] MCHC 33.2 32.3 - 35.7 g/dL [facility] RDW CV 14.8 11.1 - 14.9 % [facility] RDW SD 52.6(H) 35.7 - 48.1 fL [facility] NRBC abs 0.00 0.00 - 0.01 K/cumm [facility] Blood 01/10/2023 9:26 AM CDT 01/10/2023 9:27 AM CDT Eren Cr MD LAB BLOOD ORDERABLES Final Re sult [facility] Department [place] [address] * (ABNORMAL) Comprehensive metabolic panel (01/10/2023 9:26 AM CDT) Sodium 138 135 - 145 mmol/L [facility] Comment:Testing performed by : [facility], [address] [place] [address] Potassium, pl 4.0 3.3 - 4.9 mmol/L [facility] Chloride 108 97 - 110 mmol/L [facility] CO2 25 22 - 32 mmol/L [facility] Anion gap 5 2 - 15 mmol/L [facility] BUN 14 6 - 25 mg/dL [facility] Creatinine 1.37(H) 0.60 - 1.10 mg/dL [facility] Glucose 124 70 - 199 mg/dL [facility] Comment: Interpretive Data Fasting glucose >/= 126 [...] Calcium 10.0 8.5 - 10.3 mg/dL [facility] Bilirubin, total 0.5 0.1 - 1.2 mg/dL [facility] Protein, pl 6.5 6.5 - 8.5 g/dL [facility] Albumin 4.1 3.5 - 5.0 g/dL [facility] Alk phos 65 40 - 130 Units/L [facility] ALT 24 7 - 45 Units/L [facility] AST 36 10 - 45 Units/L [facility] Blood 01/10/2023 9:26 AM CDT 01/10/2023 9:27 AM CDT Eren Cr MD LAB BLOOD [place] [address] * Magnesium (01/10/2023 9:26 AM CDT) Magnesium 1.4 1.4 - 2.5 mg/dL [facility] Comment:Testing performed by : [facility], [address] [place] [address] Blood 01/10/2023 9:26 AM CDT 01/10/2023 9:27 AM CDT Eren Cr MD LAB BLOOD ORDERABLES Final Re sult Performing Organization Address [facility]/[place] [address] * (ABNORMAL) TSH (01/10/2023 9:26 AM CDT) Thyroid Stimulating Hormone 8.70(H) 0.30 - 4.20 mcIUnit/mL [facility] Blood 01/10/2023 9:26 AM CDT 01/10/2023 10:40 AM CDT Eren Cr MD LAB BLOOD ORDERABLES Final Re sult [facility] [place] [address] * (ABNORMAL) Lipid panel (01/10/2023 9:26 AM CDT) [facility] Cholesterol 171 30 - 199 mg/dL JASON [...] on 2018. HDL 62 >=40 mg/dL [facility] Comment: Interpretive Data Ages < or = [...] on 2018. LDL, calculated 75 <=129 mg/dL [facility] Comment: Interpretive Data Ages < or = [...] revised on 2018. Non-HDL Cholesterol 109 mg/dL [facility] Comment: Interpretive Data Ages < or = [...] revised on 2018. Chol/HDL ratio 3 [facility] Blood 01/10/2023 9:26 AM CDT 01/10/2023 10:40 AM CDT Eren Cr MD LAB BLOOD ORDERABLES Final Re sult Performing Organization Address City/[facility]/ZIP Co de Phone Number [facility] Department [place] [address] * (ABNORMAL) Phosphorus (01/10/2023 9:26 AM CDT) Pathologist [facility] Phosphorus, pl 2.2(L) 2.3 - 4.5 mg/dL [facility] Comment:Testing performed by : [address] [address] Blood 01/10/2023 9:26 AM CDT 01/10/2023 9:27 AM CDT Eren Cr MD LAB BLOOD ORDERABLES Final Re sult Performing Organization Address [facility] Co de Phone Number [facility] Department [place] [address] * (ABNORMAL) Vitamin D 25 hydroxy (01/10/2023 9:26 AM CDT) [facility] Vitamin D 25-OH 24(L) 30 - 80 ng/mL [facility] Blood 01/10/2023 9:26 AM CDT 01/10/2023 10:40 AM CDT Eren Cr MD LAB BLOOD ORDERABLES Final Re sult Performing Organization Address City/[facility]/ZIP Co de Phone Number [facility] [place] [address] * (ABNORMAL) Chromogranin A (01/10/2023 9:26 AM [...] a homogeneous time-resolved immunofluorescent assay manufactured by [employer] and performed on the [employer] Kryptor Compact Plus. ? Values obtained with different assay methods or kits may be different and cannot be used interchangeably. ? Test results cannot be interpreted as absolute evidence for the presence or absence of malignant disease. Test Performed by: [place] [address] Butter Maker: Immanuel Novak M.D. 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
--- OUTSIDE RECORDS SUMMARY | 2024-06-26 01:58 | XMS_ITS | Encounter Summary ---
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 documented in this encounter Care Teams Rn On Site Relationship Specialty Start Date End Date Julio César Briseno MD PCP - General 10/01/16 Eren Cr MD Referring Physician Medical Oncology 11/25/18 Yohana Bowen MD Radiation Oncologist Radiation Oncology 11/25/18 documented as of this encounter
--- OUTSIDE RECORDS SUMMARY | 2024-06-26 01:58 | XMS_ITS | Encounter Summary ---
Author Organization [facility] Home Care Servic es Address [address] [place] [address] Phone Care Team Providers Care Video Recorder Mechanic Name Role Phone Julio César Briseno MD Primary Care Provider [phone] Eren Cr MD Unavailable [phone] Yohana Bowen MD Unavailable Encounter Details Date Type Department Care Team (Late st Contact Info) Description 02/13/2023 1:30 PM CDT Home Care Visit [facility] Health [address] [address] [address] [place] [address] Yo Santiago RN SN HOME VISIT Social [...] No 11/07/2022 OASIS B1300: Health Literacy Answer Minehs e Recorded Frequency of needing help to [...] on file 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 Gender Identity Not on file Sexual [...] Site 0.9 % sodium chloride ([facility] sodium chloride 0.9%) injection 10 mL, [...] home health visit Disciplines: SN, PT, OT, PULL OUT OPERATOR, GROUT MACHINE TENDER, Skilled Disciplines Monitor patient's vital [...] visit during episode of care Description: Home consumer insight analyst to measure vital signs during every [...] Completed Patient instructed on frequent/proper hand-washing techniques, [place] precautions, avoid crowds and persons with known [...] Scheduled documented in this encounter Care Teams Video Recorder Mechanic Relationship Specialty Start Date End Date Julio César Briseno MD PCP - General 10/01/16 Eren Cr MD Referring Physician Medical Oncology 11/25/18 Yohana Bowen MD Radiation Oncologist Radiation Oncology 11/25/18 documented as of this encounter
--- OUTSIDE RECORDS SUMMARY | 2024-06-26 01:58 | XMS_ITS | Encounter Summary ---
Author Organization [facility] Address [address] [place] [address] Phone Care Team Providers Care Human Resource Statistician Name Role Phone Julio César Briseno MD Primary Care Provider Eren Cr MD Unavailable [phone] Yohana Bowen MD Unavailable Encounter Details Date Type Department Care Team (Late st Contact Info) Description 02/08/2023 Treatment [facility] Otolaryngology [facility] [address] [facility], [address] [place] [address] Nasim Rojas MD 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
--- OUTSIDE RECORDS SUMMARY | 2024-06-26 01:58 | XMS_ITS | Encounter Summary ---
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 Instruct on IV flush Description: Instruct patient/caregiver in how to perform flushing of IV line according to MD orders or protocol. Problem:Learning/Teac soco Needs - IV Therapy Completed Pt verbalizes good understanding of IV flush procedure using aseptic technique as per [facility] HH Infusion policy. IV Administration Description: Skilled [...] Scheduled documented in this encounter Care Teams Nuclear Radiation Engineer Relationship Specialty Start Date End Date Julio César Briseno MD PCP - General 10/01/16 Eren Cr MD Referring Physician Medical Oncology 11/25/18 Yohana Bowen MD Radiation Oncologist Radiation Oncology 11/25/18 documented as of this encounter
--- OUTSIDE RECORDS SUMMARY | 2024-06-26 01:58 | XMS_ITS | Encounter Summary ---
Author Organization [facility] Address [address] [place] [address] Phone Care Team Providers Care Bobbin Washer Name Role Phone Julio César Briseno MD Primary Care Provider [phone] Eren Cr MD Unavailable [phone] Yohana Bowen MD Unavailable Reason for Visit * Reason Comments Post-op Pt is here for post op visit for eye swelling Encounter Details Date Type Department Care Team (Late st Contact Info) Description 02/25/2023 10:30 AM CDT Office Visit [facility] Otolaryngology [address] 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 Nasim Rojas M.D. Laundry Manager, Otology and Neurotology Department of Otolaryngology [facility] [phone] documented in this encounter Plan of Treatment Not on file documented as of this encounter Visit Diagnoses Diagnosis Conductive hearing loss of right ear with unrestricted hearing of left ear- Primary Chronic atticoantral suppurative otitis media, right ear documented in this encounter Care Teams Bobbin Washer Relationship Specialty Start Date End Date Julio César Briseno MD PCP - General 10/01/16 Eren Cr MD Referring Physician Medical Oncology 11/25/18 Yohana Bowen MD Radiation Oncologist Radiation Oncology 11/25/18 documented as of this encounter
--- OUTSIDE RECORDS SUMMARY | 2024-06-26 01:58 | XMS_ITS | Encounter Summary ---
Author Organization [facility] Address [address] [place] [address] Phone Care Team Providers Care Artificial Marble Worker Name Role Phone Julio César Briseno MD Primary Care Provider [phone] Eren Cr MD Unavailable [phone] Yohana Bowen MD Unavailable PopejoyAlejo Ramos MD Unavailable [phone] Reason for Visit * Episode Based Medications (Routine) - Closed Specialty Diagnoses / Procedures Referred By Contac t Referred To Contact Diagnoses Neuro-endocrine carcinoma (HCC) Procedures study [id number] phase III cabozantinib Eren Cr MD [address] [facility] [address] [place] [address] Phone: tel: fax: [facility] at [facility] and [facility] [address] [facility] Advanced Medicine 7th [place] [address] Phone: tel: Referral ID Status Reason Start Date Expiration Date Visits Re quested Visits Authorized [id number] Closed 06/21/2021 06/26/2024 1 99 Encounter Details Date Type Department Care Team (Late st Contact Info) Description 03/07/2023 9:45 AM CDT Office Visit [facility] Oncology [address] [place] [address] Eren Cr MD [address] [facility] [address] [place] [address] Neuroendocrine carcinoma (HCC) (Primary Dx); Malignant neoplasm [...] file 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 She is seeing an bi data architect tomorrow. She reports that the vaginal bleeding she reported at last visit stopped, but she saw her mixed crop and livestock farmer yesterday who did an exam and then [...] skin. Scattered bruises to arms. NEURO: A&Ox4, crawler tractor operator grossly intact by conversation, moving all [...] on 01/10/23 - We discussed that the [place] Data and Safety Monitoring Board (DSMB) voted [...] a homogeneous time-resolved immunofluorescent assay manufactured by Figure 1 and performed on the [employer]k Kryptor Compact Plus. ? Values obtained with different assay methods or kits may be different and cannot be used interchangeably. ? Test results cannot be interpreted as absolute evidence for the presence or absence of malignant disease. Test Performed by: [address] [place] [address] Manager Account Management: Immanuel Novak M.D. Ph.D.; CLIA# [id number] Blood 04/04/2023 2:32 PM CDT 04/04/2023 7:20 PM CDT us Eren Cr MD LAB BLOOD ORDERABLES Final Re sult [facility] Department [place] [address] * (ABNORMAL) Comprehensive metabolic panel (04/04/2023 2:32 PM CDT) Sodium 139 135 - 145 mmol/L JASON BLACK Comment:Testing performed by : [facility], [address] [facility] [address] Potassium, pl 4.0 3.3 - 4.9 mmol/L [facility] Chloride 108 97 - 110 mmol/L [facility] CO2 24 22 - 32 mmol/L [facility] Anion gap 7 2 - 15 mmol/L [facility] BUN 16 6 - 25 mg/dL [facility] Creatinine 1.22(H) 0.60 - 1.10 mg/dL [facility] Glucose 106 70 - 199 mg/dL [facility] [...] 2022. Calcium 10.3 8.5 - 10.3 mg/dL [facility] Bilirubin, total 0.5 0.1 - 1.2 mg/dL [facility] Protein, pl 6.2(L) 6.5 - 8.5 g/dL [facility] Albumin 4.0 3.5 - 5.0 g/dL [facility] Alk phos 61 40 - 130 Units/L [facility] ALT 24 7 - 45 Units/L [facility] AST 33 10 - 45 Units/L [facility] Blood 04/04/2023 2:32 PM CDT 04/04/2023 2:32 PM CDT us Eren Cr MD LAB BLOOD ORDERABLES Final Re sult [facility] Department [place] [address] * (ABNORMAL) CBC with auto differential (04/04/2023 2:32 PM CDT) WBC 3.1(L) 3.8 - 9.9 K/cumm [facility] Comment:Testing performed by : [facility], [address] [place] [address] Hgb 10.8(L) 11.9 - 15.5 g/dL [facility] Comment:Testing performed by : [facility], [address] [place] [address] Hct 32.5(L) 35.6 - 45.5 % [facility] Comment:Testing performed by : [facility], [address] [place] [address] Plt 88(L) 150 - 400 K/cumm [facility] Comment:Testing performed by : [facility], [address] [place] [address] MPV 10.4 9.1 - 12.3 fL [facility] RBC 3.26(L) 3.90 - 5.20 M/cumm [facility] MCV 99.7(H) 81.3 - 96.4 fL [facility] MCH 33.1 27.1 - 33.3 pg [facility] MCHC 33.2 32.3 - 35.7 g/dL [facility] RDW CV 14.6 11.1 - 14.9 % [facility] RDW SD 52.6(H) 35.7 - 48.1 fL [facility] NRBC abs 0.00 0.00 - 0.01 K/cumm [facility] Blood 04/04/2023 2:32 PM CDT 04/04/2023 2:32 PM CDT us Eren Cr MD LAB BLOOD ORDERABLES Final Re sult [facility] Department of Laboratories [place], [place] [id number] * (ABNORMAL) Vitamin D 25 hydroxy (04/04/2023 2:32 PM CDT) Vitamin D 25-OH 17(L) 30 - 80 ng/mL [facility] Blood 04/04/2023 2:32 PM CDT 04/04/2023 6:38 PM CDT Eren Cr MD LAB BLOOD ORDERABLES Final Re sult Performing Organization Address City/[facility] Co de Phone Number [facility] Department [place] [address] * Phosphorus (04/04/2023 2:32 PM CDT) Pathologist [facility] Phosphorus, pl 2.9 2.3 - 4.5 mg/dL [facility] Comment:Testing performed by : [facility], [address] [place] [address] Blood 04/04/2023 2:32 PM CDT 04/04/2023 2:32 PM CDT Eren Cr MD LAB BLOOD ORDERABLES Final Re sult Performing Organization Address [facility] de Phone Number [facility] [place] [address] * (ABNORMAL) Lipid panel (04/04/2023 2:32 PM CDT) [facility] Cholesterol 147 30 - 199 mg/dL [facility] revised on 2018. Triglycerides 206(H) <=149 mg/dL [facility] [...] revised on 2018. HDL 62 >=40 mg/dL [facility] [...] on 2018. LDL, calculated 44 <=129 mg/dL [facility] [...] revised on 2018. Non-HDL Cholesterol 85 mg/dL [facility] [...] on 2018. Chol/HDL ratio 2 [facility] Blood 04/04/2023 2:32 PM CDT 04/04/2023 6:38 PM CDT us Eren Cr MD LAB BLOOD ORDERABLES Final Re sult [facility] [place] [address] * TSH (04/04/2023 2:32 PM CDT) Thyroid Stimulating Hormone 3.70 0.30 - 4.20 mcIUnit/mL [facility] Blood 04/04/2023 2:32 PM CDT 04/04/2023 6:38 PM CDT us Eren Cr MD LAB BLOOD ORDERABLES Final Re sult Performing Organization Address City/[facility]/ZIP Co de Phone Number [facility] [place] [address] * Magnesium (04/04/2023 2:32 PM CDT) Magnesium 1.4 1.4 - 2.5 mg/dL [facility] Comment:Testing performed by : [facility], [address] [place] [address] Blood 04/04/2023 2:32 PM CDT 04/04/2023 2:32 PM CDT Eren Cr MD LAB BLOOD ORDERABLES Final Re sult Performing Organization Address [facility] Co de Phone Number [facility] [place] [address] documented in this encounter Visit Diagnoses Diagnosis [...] 03/07/2023 documented in this encounter Care Teams Artificial Marble Worker Relationship Specialty Start Date End Date Julio César Briseno MD PCP - General 10/01/16 Eren Cr MD Referring Physician Medical Oncology 11/25/18 Yohana Bowen MD Radiation Oncologist Radiation Oncology 11/25/18 Alejo Mi MD [address] [place] [address] Referring Physician Nephrology 03/07/23 documented as of this encounter
--- OUTSIDE RECORDS SUMMARY | 2024-06-26 01:58 | XMS_ITS | Encounter Summary ---
Author Organization [facility] Healthcare Address [address] [place] [address] Care Team Providers Care Non Destructive Testing Supervisor Name Role Phone Julio César Briseno MD Primary Care Provider Eren Cr MD Unavailable [phone] Yohana Bowen MD Unavailable Encounter Details Date Type Department Care Team (Latest Contact Info) Description 01/14/2023 12:16 PM CDT - 01/14/2023 11:59 PM CDT Hospital Encounter [facility] ([facility]) [address] [place] [address] Neuro-endocrine carcinoma (HCC) Discharge Disposition: Discharge to [...] file Legal Sex Female 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 Gender Identity Not on file Sexual Orientation [...] by mouth nightly 0.9 % sodium chloride ([facility] sodium chloride 0.9%) injectionIndication s:line care Infuse 10 mL into a venous catheter once a week On saturday06/20/20 24 amLODIPine (NORVASC) 5 mg tabletIndications:h ypertension Take 0.5 tablets (2.5 mg total) by mouth nightly 07/27/2022 06/11/20 23 ascorbic acid, vitamin C, 500 mg capsuleIndications: supplement Take 1 tablet by mouth meat cutter before breakfast 07/04/2016 06/20/20 24 clotrimazole-betame thasone (LOTRISONE) cream Apply 1 Application topically daily as needed (rash) 06/20/20 24 coenzyme Y55-plovhos E 100-5 mg-unit capsuleIndications: supplement Take 1 tablet by mouth meat cutter before breakfast 06/20/20 24 diphenoxylate-atrop ine (LOMOTIL) [...] to flush 06/20/20 24 INV-[facility] cabozantinib/placeb o (/[id number]) 20 mg tabletIndications:c ancer study Take 1 tablet (20 mg total) by mouth nightly Take on an empty stomach (no food for 2 hours before and 1 hour after each dose).?? Avoid [place]'s Wort, grapefruit products and [place] oranges while on treatment. 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 Current interpretive data was last revised 2018. Creatinine Ur 101.8 mg/dL [facility] Comment: Interpretive Data No reference range established. Current interpretive data was last revised 2018. Protein/creatinin e ratio 62.9 0.0 - 180.0 mg/g CR [facility] Urine 01/14/2023 11:2 4 AM CDT 01/14/2023 11:43 AM CDT us Eren Cr MD LAB URINE ORDERABLES Final Re sult [facility] [place] [address] documented in this encounter Visit Diagnoses Diagnosis Neuro-endocrine carcinoma (HCC) Other malignant neoplasm of unspecified site documented in this encounter Care Teams Non Destructive Testing Supervisor Relationship Specialty Start Date End Date Julio César Briseno MD PCP - General 10/01/16 Eren Cr MD Referring Physician Medical Oncology 11/25/18 Yohana Bowen MD Radiation Oncologist Radiation Oncology 11/25/18 documented as of this encounter
--- OUTSIDE RECORDS SUMMARY | 2024-06-26 01:58 | XMS_ITS | Encounter Summary ---
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) Procedures [place] OCTREOTIDE INJECTION, DEPOT Octreotide 28 Day Cycles - Carcinoid Eren Cr MD [address] [place] [address] Phone: tel: fax: [address] [address] Phone: tel: fax: Referral ID Status Reason Start Date Expiration Date V isits Requested Visits Authorized [id number] Authorized 11/28/2017 02/05/2025 1 150 Encounter Details Date Type Department Care Team (Late st Contact Info) Description 01/10/2023 3:00 PM CDT Infusion [facility] Oncology [address] [place] [address] Neuroendocrine carcinoma (CMS/HCC) (HCC) (Primary Dx); Malignant [...] file 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 Gender Identity Not on file Sexual Orientation Straight 02/19/2021 9: 29 AM CDT Occupation Industry Job Start Date Job End Date retired Not on file Not on file Not on file documented as of this encounter Nursing Notes * Sabrina Dumont, [place] - 01/10/2023 3:00 PM CDT Oncology Nursing Note [facility] [...] Date First Ordered Date INV-[facility] cabozantinib/pl acebo (/[id number]) tablet 20 mg 1 01/10/2023 Nursing Count Last Ordered Date First Orde red Date ONCBCN NURSING COMMUNICATION [id number] 01/10 ONCBCN NURSING COMMUNICATION [id number] 1 0 01/10/2023 ONCBCN OK TO TREAT 1 01/10/2023 ONCBCN PROVIDER COMMUNICATION 10 1 01/11/20 ONCBCN STUDY COMMUNICATION 2 1 01/10/2023 ONCBCN TREATMENT PARAMETERS 1 1 01/10/2023 PHYSICIAN COMMUNICATION ORDER 1 01/10/2023 RESEARCH STUDY CLARIFICATION ORDER 1 2022 Appointment Requests Count Last Ordered Date Fi rst Ordered Date ONCBCN INJECTION APPOINTMENT REQUEST 1 12/2022 documented in this encounter Care Teams Quality Project Manager Relationship Specialty Start Date End Date Julio César Briseno MD PCP - General 10/01/16 Eren Cr MD Referring Physician Medical Oncology 11/25/18 Yohana Bowen MD Radiation Oncologist Radiation Oncology 11/25/18 documented as of this encounter
--- OUTSIDE RECORDS SUMMARY | 2024-06-26 01:58 | XMS_ITS | Encounter Summary ---
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) Procedures [place] OCTREOTIDE INJECTION, DEPOT Octreotide 28 Day Cycles - Carcinoid Eren Cr MD [address] [place] [address] Phone: tel: fax: [address] [address] Phone: tel: fax: Referral ID Status Reason Start Date Expiration Date V isits Requested Visits Authorized [id number] Authorized 11/28/2017 02/05/2025 1 150 Encounter Details Date Type Department Care Team (Latest Contact Info) Description 02/07/2023 1:30 PM CDT Clinical Support [facility] Oncology [address] [place] [address] 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
--- OUTSIDE RECORDS SUMMARY | 2024-06-26 01:58 | XMS_ITS | Encounter Summary ---
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 Both the [...] Rate Site 0.9 % sodium chloride ([facility] sodium chloride 0.9%) injection 10 mL, [...] home health visit Disciplines: SN, PT, OT, PUBLIC ADDRESS SERVICER, PORCELAIN TECHNICIAN, Skilled Disciplines Monitor patient's vital signs [...] visit during episode of care Description: Home real estate processor to measure vital signs during every [...] and supplies before infusing, and waste disposal. Problem:Learning/[facility] soco Needs - IV Therapy Completed [...] include good handwashing, aseptic technique as per [facility] Home Infusion Policies and Procedures, and troubleshooting/manag ement. Instruct on IV flush Description: Instruct patient/caregiver in how to perform flushing of IV line according to MD orders or protocol. Problem:Learning/[employer] Needs - IV Therapy Completed Pt verbalizes good understanding of IV flush procedure using aseptic technique as per [facility] Infusion policy. Instruct Infection Prevention Description: Instruct [...] Scheduled documented in this encounter Care Teams Faculty Head Relationship Specialty Start Date End Date Julio César Briseno MD PCP - General 10/01/16 Eren Cr MD Referring Physician Medical Oncology 11/25/18 Yohana Bowen MD Radiation Oncologist Radiation Oncology 11/25/18 documented as of this encounter
--- OUTSIDE RECORDS SUMMARY | 2024-06-26 01:58 | XMS_ITS | Encounter Summary ---
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) Neuroendocrine carcinoma (HCC) Procedures CT chest abdomen pelvis with contrast Eren Cr MD [address] [place] [address] Phone: tel: fax: [facility] Referral ID Status Reason Start Date Expiration Date Visits Re quested Visits Authorized [id number] Closed 02/07/2023 03/08/2024 1 1 Reason for Visit * Episode Based Medications (Routine) - Authorized Specialty Diagnoses / Procedures [facility] Referred To Contact Oncology Diagnoses Neuroendocrine carcinoma (HCC) 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) Procedures [place] OCTREOTIDE INJECTION, DEPOT Octreotide 28 Day Cycles - Carcinoid Eren Cr MD [address] [facility] [address] [place] [address] Phone: tel: fax: [facility] [address] [place] [address] Phone: tel: fax: Referral ID Status Reason Start Date Expiration Date V isits Requested Visits Authorized [id number] Authorized 11/28/2017 02/05/2025 1 150 Encounter Details Date Type Department Care Team (Late st Contact Info) Description 02/07/2023 2:00 PM CDT Office Visit [facility] Oncology [address] [place] [phone] Eren Cr MD [address] [facility] [address] [place] [address] Neuro-endocrine carcinoma (HCC) (Primary Dx); Malignant neoplasm [...] file 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 Scattered bruises to arms. NEURO: A&Ox4, seismograph operator helper grossly intact by conversation, moving all [...] chair, now resolved - Follow up with HAND LAMINATOR (has already discussed with them) All of [...] AM CDT) Protein, ur, quant 17.1 mg/dL [facility] Comment: Interpretive Data No reference range established. Current interpretive data was last revised 2018. Creatinine Ur 181.9 mg/dL [facility] Comment: Interpretive Data No reference range established. Current interpretive data was last revised 2018. Protein/creatinin e ratio 94.0 0.0 - 180.0 mg/g CR [facility] Urine 03/07/2023 9:25 AM CDT 03/07/2023 10:04 AM CDT us Eren Cr MD LAB URINE ORDERABLES Final Re sult [facility] Department [place] [address] * (ABNORMAL) Chromogranin A (03/07/2023 9:23 AM CDT) Chromogranin A 1552(H) <93 ng/mL [facility] Comment: Impaired renal or hepatic function or treatment with proton pump inhibitors may result in artifactual elevations of Chromogranin A. ADDITIONAL INFORMATION This test was developed and its performance characteristics determined by [facility] in a manner consistent with CLIA [...] a homogeneous time-resolved immunofluorescent assay manufactured by [employer] and performed on the [employer] Kryptor Compact Plus. ? Values obtained with different assay methods or kits may be different and cannot be used interchangeably. ? Test results cannot be interpreted as absolute evidence for the presence or absence of malignant disease. Test Performed by: [place] [address] Mobile Application Developer: Immanuel Novak M.D. Ph.D.; CLIA# [id number] Blood 03/07/2023 9:23 AM CDT 03/07/2023 10:06 AM CDT us Eren Cr MD LAB BLOOD ORDERABLES Final Re sult [facility] [place] [address] * (ABNORMAL) Vitamin D 25 hydroxy (03/07/2023 9:23 AM CDT) Vitamin D 25-OH 19(L) 30 - 80 ng/mL [facility] Blood 03/07/2023 9:23 AM CDT 03/07/2023 10:49 AM CDT Eren Cr MD LAB BLOOD ORDERABLES Final Re sult [facility] Department [place] [address] * (ABNORMAL) Phosphorus (03/07/2023 9:23 AM CDT) Phosphorus, pl 1.8(L) 2.3 - 4.5 mg/dL [facility] Comment:Testing performed by : [facility], [address] [place] [address] Blood 03/07/2023 9:23 AM CDT 03/07/2023 9:25 AM CDT Eren Cr MD LAB BLOOD ORDERABLES Final Re sult Performing Organization Address City/[facility]/ZIP Co de Phone Number [facility] Department [place] [address] * (ABNORMAL) Lipid panel (03/07/2023 9:23 AM CDT) Cholesterol 165 30 - 199 mg/dL [facility] [...] on 2018. Triglycerides 169(H) <=149 mg/dL [facility] Comment: Interpretive Data Ages < or [...] revised on 2018. HDL 58 >=40 mg/dL [facility] Comment: Interpretive [...] 2018. LDL, calculated 73 <=129 mg/dL [facility] Comment: Interpretive Data Ages < or [...] ORDERABLES Final Re sult [facility] [place] [address] * (ABNORMAL) Magnesium (03/07/2023 9:23 AM CDT) Magnesium 1.3(L) 1.4 - 2.5 mg/dL [facility] Comment:Testing performed by : [facility], [address] [place] [address] Blood 03/07/2023 9:23 AM CDT 03/07/2023 9:25 AM CDT us Eren Cr MD LAB BLOOD ORDERABLES Final Re sult [facility] Department [place] [address] * (ABNORMAL) Comprehensive metabolic panel (03/07/2023 9:23 AM CDT) Pathologist [facility] Sodium 141 135 - 145 mmol/L [facility] Comment:Testing performed by : [facility], [address] [place] [address] Potassium, pl 4.1 3.3 - 4.9 mmol/L [facility] Chloride 108 97 - 110 mmol/L [facility] CO2 28 22 - 32 mmol/L [facility] Anion gap 5 2 - 15 mmol/L [facility] BUN 12 6 - 25 mg/dL [facility] Creatinine 1.25(H) 0.60 - 1.10 mg/dL [facility] Glucose 135 70 - 199 mg/dL [facility] [...] 2022. Calcium 9.7 8.5 - 10.3 mg/dL [facility] Bilirubin, total 0.6 0.1 - 1.2 mg/dL [facility] Protein, pl 6.3(L) 6.5 - 8.5 g/dL [facility] Albumin 4.0 3.5 - 5.0 g/dL [facility] Alk phos 59 40 - 130 Units/L [facility] ALT 24 7 - 45 Units/L [facility] AST 34 10 - 45 Units/L [facility] Blood 03/07/2023 9:23 AM CDT 03/07/2023 9:25 AM CDT us Eren Cr MD LAB BLOOD ORDERABLES Final Re sult [facility] Department [place] [address] * (ABNORMAL) CBC with auto differential (03/07/2023 9:23 AM CDT) WBC 2.6(L) 3.8 - 9.9 K/cumm [facility] Comment:Testing performed by : [address] [address] Hgb 10.9(L) 11.9 - 15.5 g/dL [facility] Comment:Testing performed by : [address] [address] Hct 33.4(L) 35.6 - 45.5 % [facility] Comment:Testing performed by : [address] [address] Plt 89(L) 150 - 400 K/cumm [facility] Comment:Testing performed by : [address] [address] MPV 10.3 9.1 - 12.3 fL [facility] RBC 3.33(L) 3.90 - 5.20 M/cumm [facility] MCV 100.3(H) 81.3 - 96.4 fL [facility] MCH 32.7 27.1 - 33.3 pg [facility] MCHC 32.6 32.3 - 35.7 g/dL [facility] RDW CV 14.7 11.1 - 14.9 % [facility] RDW SD 53.5(H) 35.7 - 48.1 fL [facility] NRBC abs 0.00 0.00 - 0.01 K/cumm [facility] Blood 03/07/2023 9:23 AM CDT 03/07/2023 9:25 AM CDT us Eren Cr MD LAB BLOOD ORDERABLES Final Re sult [facility] Department [place] [address] * CT chest abdomen pelvis with contrast [...] 23 documented in this encounter Care Teams Shipping Clerk Crating Relationship Specialty Start Date End Date Julio César Briseno MD PCP - General 10/01/16 Eren Cr MD Referring Physician Medical Oncology 11/25/18 Yohana Bowen MD Radiation Oncologist Radiation Oncology 11/25/18 documented as of this encounter
--- OUTSIDE RECORDS SUMMARY | 2024-06-26 01:58 | XMS_ITS | Encounter Summary ---
Author Organization [facility] Address [address] [place] [address] Phone Care Team Providers Care Inclusion Manager Name Role Phone Julio César Briseno MD Primary Care Provider [phone] Eren Cr MD Unavailable [phone] Yohana Bowen MD Unavailable Alejo Mi MD Unavailable [phone] Reason for Referral * Consultation (Urgent) - Closed Specialty Diagnoses / Procedures Referred By Contac t Referred To Contact Endocrinology Diagnoses Neuroendocrine carcinoma (HCC) Abnormal TSH Eren Cr MD [address] [place] [address] Phone: tel: fax: [facility] (All Locations) Referral ID Status Reason Start Date Expiration Date V isits Requested Visits Authorized [id number] Closed Specialty Services Required 03/12/2023 04/10/2024 1 1 Question Answer Please select the performing region: [facility] (All Locations) [167] # of visits: [address] Cr referring patient for management of elevated TSH please. 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
--- OUTSIDE RECORDS SUMMARY | 2024-06-26 01:58 | XMS_ITS | Encounter Summary ---
Author Organization [facility] Address [address] [place] [address] Phone Care Team Providers Care Sewer And Cutter Finger Buff Material Name Role Phone Julio César Briseno MD Primary Care Provider [phone] Eren Cr MD Unavailable [phone] Yohana Bowen MD Unavailable Reason for Visit * Reason Comments Port Draw * Episode Based Medications (Routine) - Closed Specialty Diagnoses / Procedures Referred By Contellen t Referred To Contact Diagnoses Neuro-endocrine carcinoma (HCC) Procedures study [id number] phase III cabozantinib Eren Cr MD [address] [place] [address] Phone: tel: fax: [facility] [address] [facility] Advanced Medicine 7th [place] [address] Phone: tel: Referral ID Status Reason Start Date Expiration Date Visits Re quested Visits Authorized [id number] Closed 06/21/2021 06/26/2024 1 99 Encounter Details Date Type Department Care Team (Latest Contact Info) Description 01/10/2023 9:30 AM CDT Clinical Support [facility] Oncology [address] [phone] Neuro-endocrine carcinoma (HCC) Social History Tobacco Use [...] on file 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
--- OUTSIDE RECORDS SUMMARY | 2024-06-26 01:59 | XMS_ITS | Encounter Summary ---
Author Organization [facility] Address [address] [place] [address] Care Team Providers Care Hydrogen Operator Name Role Phone Julio César Briseno MD Primary Care Provider [phone] Eren Cr MD Unavailable [phone] Yohana Bowen MD Unavailable Encounter Details Date Type Department Care Team (Latest Contact Info) Description 12/13/2022 12:37 PM CDT - 12/13/2022 11:59 PM CDT Hospital Encounter [facility] [address] [place] [id number] Neuroendocrine carcinoma (CMS/HCC) (HCC); Malignant neoplasm metastatic [...] file Legal Sex Female 2:41 PM CONSULTING SME Gender Identity Not on file Sexual Orientation [...] by mouth nightly 0.9 % sodium chloride ([facility] sodium chloride 0.9%) injectionIndication s:line care Infuse 10 mL into a venous catheter once a week On saturday06/20/20 24 amLODIPine (NORVASC) 5 mg tabletIndications:h ypertension Take 0.5 tablets (2.5 mg total) by mouth nightly 07/27/2022 06/11/20 23 ascorbic acid, vitamin C, 500 mg capsuleIndications: supplement Take 1 tablet by mouth toter before breakfast 07/04/2016 06/20/20 24 clotrimazole-betame thasone (LOTRISONE) cream Apply 1 Application topically daily as needed (rash) 06/20/20 24 coenzyme S90-bytspht E 100-5 mg-unit capsuleIndications: supplement Take 1 tablet by mouth toter before breakfast 06/20/20 24 diphenoxylate-atrop ine (LOMOTIL) [...] to flush 06/20/20 24 INV-[facility] cabozantinib/placeb o (/[id number]) 20 mg tabletIndications:c ancer study Take 1 tablet (20 mg total) by mouth nightly Take on an empty stomach (no food for 2 hours before and 1 hour after each dose).?? Avoid Jas's Wort, grapefruit products and Meeker oranges while on treatment. 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 Take 1 tablet (88 mcg total) by mouth toter before breakfast 90 tablet 1 10/12/2022 09/12/19 [...] Re sult [facility] One [facility] Department [place] [address] * (ABNORMAL) Differential, auto (12/13/2022 10:07 AM CDT) Neutrophil abs 1.8 1.7 - 6.5 K/cumm [facility] Comment:Testing performed by : [facility], [address] [place] [address] Imm gran abs 0.0 0.0 - 0.1 K/cumm [facility] Lymphocyte abs 0.4(L) 0.8 - 3.3 K/cumm [facility] Monocyte abs 0.4 0.2 - 0.8 K/cumm [facility] Eosinophil abs 0.2 0.0 - 0.5 K/cumm [facility] Basophil abs 0.0 0.0 - 0.1 K/cumm [facility] Neutrophil pct 64.9 % [facility] Comment: Consistent with previous result Interpretive Data Percent cell count reference ranges are not reported, since discordance with absolute values may lead to misinterpretation of CBC data. Current Interpretive Data was last revised on 2017. Imm gran pct 0.4 % [facility] Comment: Interpretive Data Percent cell count reference ranges are not reported, since discordance with absolute values may lead to misinterpretation of CBC data. Current Interpretive Data was last revised on 2017. Lymphocyte pct 12.5 % [facility] Comment: Interpretive Data Percent cell count reference ranges are not reported, since discordance with absolute values may lead to misinterpretation of CBC data. Current Interpretive Data was last revised on 2017. Monocyte pct 13.6 % [facility] Comment: Interpretive Data Percent cell count reference ranges are not reported, since discordance with absolute values may lead to misinterpretation of CBC data. Current Interpretive Data was last revised on 2017. Eosinophil pct 7.9 % [facility] Comment: Interpretive Data Percent cell count reference ranges are not reported, since discordance with absolute values may lead to misinterpretation of CBC data. Current Interpretive Data was last revised on 2017. Basophil pct 0.7 % [facility] Comment: Interpretive Data Percent cell count reference ranges are not reported, since discordance with absolute values may lead to misinterpretation of CBC data. Current Interpretive Data was last revised on 2017. Blood 12/13/2022 10:0 7 AM CDT 12/13/2022 10:07 AM CDT us Eren Cr MD LAB BLOOD ORDERABLES Final Re sult [facility] [place] [address] * Magnesium (12/13/2022 10:07 AM CDT) Magnesium 1.4 1.4 - 2.5 mg/dL [facility] Comment:Testing performed by : [facility], [address] [facility] [address] Blood 12/13/2022 10:0 7 AM CDT 12/13/2022 10:07 AM CDT us Eren Cr MD LAB BLOOD ORDERABLES Final Re sult [facility] One [facility] Department [place] [address] * (ABNORMAL) Lipid panel (12/13/2022 10:07 AM CDT) Cholesterol 161 30 - 199 mg/dL [facility] Comment: [...] on 2018. Triglycerides 183(H) <=149 mg/dL [facility] Comment: Interpretive [...] on 2018. HDL 49 >=40 mg/dL [facility] Comment: Interpretive [...] 2018. LDL, calculated 75 <=129 mg/dL [facility] Comment: Interpretive [...] on 2018. Non-HDL Cholesterol 112 mg/dL [facility] Comment: Interpretive Data [...] ratio 3 [facility] Blood 12/13/2022 10:0 7 AM CDT 12/13/2022 11:35 AM CDT us Eren Cr MD LAB BLOOD ORDERABLES Final Re sult Performing Organization Address [facility] Co de Phone Number [facility] Department [place] [address] * (ABNORMAL) Phosphorus (12/13/2022 10:07 AM CDT) Pathologist [facility] Phosphorus, pl 1.8(L) 2.3 - 4.5 mg/dL [facility] Comment:Testing performed by : [facility], [address] [place] [address] Blood 12/13/2022 10:0 7 AM CDT 12/13/2022 10:07 AM CDT Eren Cr MD LAB BLOOD ORDERABLES Final Re sult Performing Organization Address City/[facility]/ZIP Co de Phone Number [facility] Department [place] [address] * (ABNORMAL) Vitamin D 25 hydroxy (12/13/2022 10:07 AM CDT) Vitamin D 25-OH 22(L) 30 - 80 ng/mL [facility] Blood 12/13/2022 10:0 7 AM CDT 12/13/2022 11:35 AM CDT us Eren Cr MD LAB BLOOD ORDERABLES Final Re sult [facility] One [facility] [place] [address] * (ABNORMAL) CBC with auto differential (12/13/2022 10:07 AM CDT) WBC 2.8(L) 3.8 - 9.9 K/cumm [facility] Comment:Testing performed by : [address] [address] Hgb 10.9(L) 11.9 - 15.5 g/dL [facility] Comment:Testing performed by : [address] [address] Hct 33.0(L) 35.6 - 45.5 % [facility] Comment:Testing performed by : [address] [address] Plt 85(L) 150 - 400 K/cumm [facility] Comment:Testing performed by : [address] [address] MPV 10.0 9.1 - 12.3 fL [facility] RBC 3.37(L) 3.90 - 5.20 M/cumm [facility] MCV 97.9(H) 81.3 - 96.4 fL [facility] MCH 32.3 27.1 - 33.3 pg [facility] MCHC 33.0 32.3 - 35.7 g/dL [facility] RDW CV 13.5 11.1 - 14.9 % [facility] RDW SD 47.9 35.7 - 48.1 fL [facility] NRBC abs 0.00 0.00 - 0.01 K/cumm [facility] Blood 12/13/2022 10:0 7 AM CDT 12/13/2022 10:07 AM CDT us Eren Cr MD LAB BLOOD ORDERABLES Final Re sult [facility] One [facility] Department [place] [address] * (ABNORMAL) Comprehensive metabolic panel (12/13/2022 10:07 AM CDT) Sodium 140 135 - 145 mmol/L [facility] Comment:Testing performed by : [facility], [address] [facility] [address] Potassium, pl 4.7 3.3 - 4.9 mmol/L [facility] Chloride 109 97 - 110 mmol/L [facility] CO2 26 22 - 32 mmol/L [facility] Anion gap 5 2 - 15 mmol/L [facility] BUN 17 8 - 25 mg/dL [facility] Creatinine 1.43(H) 0.60 - 1.10 mg/dL [facility] Glucose 84 70 - 199 mg/dL [facility] [...] 2022. Calcium 9.6 8.5 - 10.3 mg/dL [facility] Bilirubin, total 0.4 0.1 - 1.2 mg/dL [facility] Protein, pl 6.5 6.5 - 8.5 g/dL [facility] Albumin 3.9 3.5 - 5.0 g/dL [facility] Alk phos 62 40 - 130 Units/L [facility] ALT 20 7 - 45 Units/L [facility] AST 32 10 - 45 Units/L [facility] Blood 12/13/2022 10:0 7 AM CDT 12/13/2022 10:07 AM CDT us Eren Cr MD LAB BLOOD ORDERABLES Final Re sult [facility] Department [place] [address] * (ABNORMAL) Chromogranin A (12/13/2022 10:07 AM CDT) Chromogranin A 1630(H) <93 ng/mL [facility] Comment: Impaired renal or hepatic function [...] a homogeneous time-resolved immunofluorescent assay manufactured by [employer] and performed on the [employer] K[employer] Compact Plus. ? Values obtained with different assay methods or kits may be different and cannot be used interchangeably. ? Test results cannot be interpreted as absolute evidence for the presence or absence of malignant disease. Test Performed by: [address] [address] [place] [employer]: Immanuel Novak M.D. 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
--- OUTSIDE RECORDS SUMMARY | 2024-06-26 01:59 | XMS_ITS | Encounter Summary ---
Author Organization [facility] of [facility] Address [address] [place] [address] Phone Care Team Providers Care Sander Machine Name Role Phone Julio César Briseno MD Primary Care Provider Eren Cr MD Unavailable [phone] Yohana Bowen MD Unavailable Encounter Details Date Type Department Care Team (Late st Contact Info) Description 12/13/2022 Orders Only [facility] Oncology [address] [place] [address] Eren Cr MD [address] [place] [address] Neuroendocrine carcinoma (HCC) (Primary Dx); [...] file Legal Sex Female 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
--- OUTSIDE RECORDS SUMMARY | 2024-06-26 01:59 | XMS_ITS | Encounter Summary ---
Author Organization [facility] of [facility] Address [address] [place] [address] Phone Care Team Providers Care Studio Technician Video Operator Name Role Phone Julio César Briseno MD Primary Care Provider [phone] Eren Cr MD Unavailable [phone] Yohana Bowen MD Unavailable Encounter Details Date Type Department Care Team (Late st Contact Info) Description 11/29/2022 Telephone [facility] Nephrology [address] [facility] 5th [place] [address] [place] [address] Xochitl Silvestre Social History Tobacco [...] on file Legal Sex Female 2:41 PM DISCHARGE SPECIALIST Gender Identity Not on file Sexual [...] of mom who is located currently [facility] [place] [facility]. Pt took BP three times [...] on filedocumented in this encounter Care Teams Studio Technician Video Operator Relationship Specialty Start Date End Date Julio César Briseno MD PCP - General 10/01/16 Eren Cr MD Referring Physician Medical Oncology 11/25/18 Yohana Bowen MD Radiation Oncologist Radiation Oncology 11/25/18 documented as of this encounter
--- OUTSIDE RECORDS SUMMARY | 2024-06-26 01:59 | XMS_ITS | Encounter Summary ---
Author Organization [facility] Address [address] [place] [address] Phone Care Team Providers Care Crisis Intervention Counselor Name Role Phone Julio César Briseno MD Primary Care Provider [phone] Eren Cr MD Unavailable [phone] Yohana Bowen MD Unavailable Reason for Visit * Reason Comments Chronic Fatigue Encounter Details Date Type Department Care Team (Late st Contact Info) Description 12/05/2022 11:30 AM CDT Home Care Visit [facility] [address] [address] [address] [place] [address] Sherlyn Orozco RN SN HOME VISIT Social [...] on file Legal Sex Female 2:41 PM 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 Gender Identity Not on file Sexual [...] Rate Site 0.9 % sodium chloride ([facility] sodium chloride 0.9%) injection 10 [...] home health visit Disciplines: SN, PT, OT, CRAWLER CRANE OPERATOR, MANAGER FOREIGN, Skilled Disciplines Monitor patient's vital signs every [...] visit during episode of care Description: Home mangle roller to measure vital signs during every home [...] Scheduled documented in this encounter Care Teams Crisis Intervention Counselor Relationship Specialty Start Date End Date Julio César Briseno MD PCP - General 10/01/16 Eren Cr MD Referring Physician Medical Oncology 11/25/18 Yohana Bowen MD Radiation Oncologist Radiation Oncology 11/25/18 documented as of this encounter
--- OUTSIDE RECORDS SUMMARY | 2024-06-26 01:59 | XMS_ITS | Encounter Summary ---
Author Organization [facility] Address [address] [place] [address] Phone Care Team Providers Care El Teacher Name Role Phone Julio César Briseno MD Primary Care Provider Eren Cr MD Unavailable [phone] Yohana Bowen MD Unavailable Encounter Details Date Type Department Care Team (Late st Contact Info) Description 12/11/2022 Orders Only [facility] Oncology [address] [place] [address] Eren Cr MD [address] [place] [address] Social History Tobacco Use Types [...] file Legal Sex Female 2: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
--- OUTSIDE RECORDS SUMMARY | 2024-06-26 01:59 | XMS_ITS | Encounter Summary ---
Author Organization [facility] Address [address] [place] [address] Phone Care Team Providers Care Dairy Bacteriologist Name Role Phone Julio César Briseno MD Primary Care Provider [phone] Eren Cr MD Unavailable [phone] Yohana Bowen MD Unavailable Reason for Visit * Reason Comments OP Infusion Encounter Details Date Type Department Care Team (Late st Contact Info) Description 12/11/2022 1:15 PM CDT Infusion [facility] Oncology [address] [place] [address] Neuroendocrine carcinoma (HCC) (Primary Dx); Dehydration Social [...] file 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
--- OUTSIDE RECORDS SUMMARY | 2024-06-26 01:59 | XMS_ITS | Encounter Summary ---
Author Organization [facility] Address [address] [place] [address] Phone Care Team Providers Care Basketball Coach Name Role Phone Julio César Briseno MD Primary Care Provider [phone] Eren Cr MD Unavailable [phone] Yohana Bowen MD Unavailable Reason for Visit * Episode Based Medications (Routine) - Closed Specialty Diagnoses / Procedures Referred By Evelyne bowman Referred To Contact Diagnoses Neuro-endocrine carcinoma (HCC) Procedures study [id number] phase III cabozantinib Eren Cr MD [address] [facility] [address] [place] [address] Phone: tel: fax: [facility] [address] [facility] Advanced Medicine 7th [place] [address] Phone: tel: Referral ID Status Reason Start Date Expiration Date Visits Re quested Visits Authorized [id number] Closed 06/21/2021 06/26/2024 1 99 Encounter Details Date Type Department Care Team (Latest Contact Info) Description 12/13/2022 11:15 AM CDT Research Med Pick-Up/CTRU Extracting Machine Operator [facility] Oncology [address] [place] [address], [place] [address] Neuro-endocrine carcinoma (HCC) (Primary Dx) Social History [...] on file Legal 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 Female 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 Gender Identity Not on file Sexual Orientation [...] Date First Ordered Date [facility] cabozantinib/pl acebo (/[id number]) tablet 20 mg 1 12/13/2022 Nursing Count Last Ordered Date First Orde red Date ONCBCN STUDY COMMUNICATION 2 1 12/13/2022 ONCBCN TREATMENT PARAMETERS 1 1 12/13/2022 RESEARCH STUDY CLARIFICATION ORDER 1 2022 Appointment Requests Count Last Ordered Date Fi rst Ordered Date ONCBCN TAKE HOME STUDY DRUG APPT 1 12/14/19 23 documented in this encounter Care Teams Basketball Coach Relationship Specialty Start Date End Date Julio César Birseno MD PCP - General 10/01/16 Eren Cr MD Referring Physician Medical Oncology 11/25/18 Yohana Bowen MD Radiation Oncologist Radiation Oncology 11/25/18 documented as of this encounter
--- OUTSIDE RECORDS SUMMARY | 2024-06-26 01:59 | XMS_ITS | Encounter Summary ---
Author Organization [facility] [employer] [facility] Address [address] [place] [address] Phone Care Team Providers Care Director Asset Name Role Phone Julio César Briseno MD Primary Care Provider Eren Cr MD Unavailable [phone] Yohana Bowen MD Unavailable Encounter Details Date Type Department Care Team (Late st Contact Info) Description 12/13/2022 Orders Only [facility] Oncology [address] [place] [address] Eren Cr MD [address] [place] [address] Neuro-endocrine carcinoma (HCC) (Primary Dx) [...] on file Legal Sex Female 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
--- OUTSIDE RECORDS SUMMARY | 2024-06-26 01:59 | XMS_ITS | Encounter Summary ---
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) Procedures MA OCTREOTIDE INJECTION, DEPOT Octreotide 28 Day Cycles - Carcinoid Eren Cr MD [address] [place] [address] Phone: tel: fax: [address] [address] Phone: tel: fax: Referral ID Status Reason Start Date Expiration Date V isits Requested Visits Authorized [id number] Authorized 11/28/2017 02/05/2025 1 150 Encounter Details Date Type Department Care Team (Latest Contact Info) Description 12/13/2022 10:00 AM CDT Clinical Support [facility] Oncology [address] [place] [address] 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
--- OUTSIDE RECORDS SUMMARY | 2024-06-26 01:59 | XMS_ITS | Encounter Summary ---
Author Organization [facility] Address [address] [place] [address] Care Team Providers Care Access Clerk Name Role Phone Julio César Briseno MD Primary Care Provider [phone] Eren Cr MD Unavailable [phone] Yohana Bowen MD Unavailable Reason for Referral * MRI/CAT/PET Scan (Routine) - Closed Specialty Diagnoses / Procedures Referred By Evelyne bowman Referred To Contact Radiology Diagnoses Neuroendocrine carcinoma (HCC) Procedures CT chest abdomen pelvis with contrast Eren Cr MD [address] [employer] [address] [address] Phone: tel: fax: [facility] Referral ID Status Reason Start Date Expiration Date Visits Re quested Visits Authorized [id number] Closed 12/13/2022 01/12/2024 1 1 Reason for Visit * MRI/CAT/PET Scan (Routine) - Closed Specialty Diagnoses / Procedures Referred By Evelyne bowman Referred To Contact Radiology Diagnoses Neuroendocrine carcinoma (HCC) Procedures CT chest abdomen pelvis with contrast Eren Cr MD [address] [employer] [address] [place] [address] Phone: tel: fax: [facility] Referral ID Status Reason Start Date Expiration Date Visits Re quested Visits Authorized [id number] Closed 12/13/2022 01/12/2024 1 1 Encounter Details Date Type Department Care Team (Latest Contact Info) Description 12/13/2022 2:26 PM CDT - 12/13/2022 11:59 PM CDT Hospital Encounter [facility] Radiology at [facility] [address] [place] [address] Neuroendocrine carcinoma (HCC) Discharge Disposition: Discharge to [...] on file 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 Gender Identity Not on file Sexual [...] by mouth nightly 0.9 % sodium chloride ([facility] sodium chloride 0.9%) injectionIndication s:line care Infuse 10 mL into a venous catheter once a week On saturday06/20/20 24 amLODIPine (NORVASC) 5 mg tabletIndications:h ypertension Take 0.5 tablets (2.5 mg total) by mouth nightly 07/27/2022 06/11/20 23 ascorbic acid, vitamin C, 500 mg capsuleIndications: supplement Take 1 tablet by mouth stretching press operator before breakfast 07/04/2016 06/20/20 24 clotrimazole-betame thasone (LOTRISONE) cream Apply 1 Application topically daily as needed (rash) 06/20/20 24 coenzyme R10-vpfnzxb E 100-5 mg-unit capsuleIndications: supplement Take 1 tablet by mouth stretching press operator before breakfast 06/20/20 24 diphenoxylate-atrop ine [...] to flush 06/20/20 24 [facility] cabozantinib/placeb o (/[id number]) 20 mg tabletIndications:c ancer study Take 1 tablet (20 mg total) by mouth nightly Take on an empty stomach (no food for 2 hours before and 1 hour after each dose).?? Avoid [place]'s Wort, grapefruit products and [place] oranges while on treatment. 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
--- OUTSIDE RECORDS SUMMARY | 2024-06-26 01:59 | XMS_ITS | Encounter Summary ---
Author Organization [facility] [employer] of [facility] Address [address] [place] [address] Phone Care Team Providers Care Clean Rice Broker Name Role Phone Julio César Briseno MD Primary Care Provider [phone] Eren Cr MD Unavailable [phone] Yohana Bowen MD Unavailable Reason for Visit * Reason Onset Date Comments elevated POC creatinine 12/11/2022 Encounter Details Date Type Department Care Team (Late st Contact Info) Description 12/11/2022 Telephone [facility] Oncology [address] [place] [address] Eren Cr MD [address] [place], [place] [address] elevated POC creatinine Social History Tobacco Use [...] file 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
--- OUTSIDE RECORDS SUMMARY | 2024-06-26 01:59 | XMS_ITS | Encounter Summary ---
Author Organization [facility] Address [address] [place] [address] Care Team Providers Care Retirement Consultant Name Role Phone Julio César Briseno MD Primary Care Provider [phone] Eren Cr MD Unavailable [phone] Yohana Bowen MD Unavailable Encounter Details Date Type Department Care Team (Late st Contact Info) Description 12/12/2022 Orders Only [facility] Radiology at 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
--- OUTSIDE RECORDS SUMMARY | 2024-06-26 01:59 | XMS_ITS | Encounter Summary ---
Author Organization 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) Procedures ME OCTREOTIDE INJECTION, DEPOT Octreotide 28 Day Cycles - Carcinoid Eren Cr MD [address] [place] [address] Phone: tel: fax: [address] [address] Phone: tel: fax: Referral ID Status Reason Start Date Expiration Date V isits Requested Visits Authorized [id number] Authorized 11/28/2017 02/05/2025 1 150 Encounter Details Date Type Department Care Team (Late st Contact Info) Description 12/13/2022 11:15 AM CDT Infusion [facility] Oncology [address] [place] [address] Neuroendocrine carcinoma (HCC) (Primary Dx); Dehydration; Neuroendocrine [...] on file 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 female who presents for treatment of NS 1 liter over 2 hours prior to CTscan. No Xgeva today due to low Phos. No Magnesium ordered. Octreotide IM given - see injection note. Patient received Study [id number] Cabozantinib. Chemistry Lab Results Component Value Date [...] 12/13/2022 11:15 AM CDT Oncology Nursing Note [facility] La Chung is a 72 y.o. [...] 12/13/2022 documented in this encounter Care Teams Corrugated Sheet Material Sheeter Relationship Specialty Start Date End Date Julio César Briseno MD PCP - General 10/01/16 Eren Cr MD Referring Physician Medical Oncology 11/25/18 Yohana Bowen MD Radiation Oncologist Radiation Oncology 11/25/18 documented as of this encounter
--- OUTSIDE RECORDS SUMMARY | 2024-06-26 01:59 | XMS_ITS | Encounter Summary ---
Author Organization [facility] Address [address] [place] [address] Phone Care Team Providers Care Construction Project Engineer Name Role Phone Julio César Briseno MD Primary Care Provider [phone] Eren Cr MD Unavailable [phone] Yohana Bowen MD Unavailable Reason for Referral * MRI/CAT/PET Scan (Routine) - Closed Specialty Diagnoses / Procedures Referred By Evelyne bowman Referred To Contact Radiology Diagnoses Neuroendocrine carcinoma (HCC) Procedures CT chest abdomen pelvis with contrast Eren Cr MD [address] [place] [address] Phone: tel: fax: [facility] Referral ID Status Reason Start Date Expiration Date Visits Re quested Visits Authorized [id number] Closed 12/13/2022 01/12/2024 1 1 Encounter Details Date Type Department Care Team (Late st Contact Info) Description 12/13/2022 Orders Only 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
--- OUTSIDE RECORDS SUMMARY | 2024-06-26 01:59 | XMS_ITS | Encounter Summary ---
Author Organization [facility] Home [facility] Address [address] [place] [address] Phone Care Team Providers Care Field Application Engineer Name Role Phone Julio César Briseno MD Primary Care Provider [phone] Eren Cr MD Unavailable [phone] Yohana Bowen MD Unavailable Reason for Visit * Reason Comments Chronic Fatigue Encounter Details Date Type Department Care Team (Late st Contact Info) Description 12/12/2022 1:15 PM CDT Home Care Visit [facility] [address] [address] [address] [place] [address] Sherlyn Orozco RN SN HOME VISIT Social [...] on file 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 Gender Identity Not on file Sexual Orientation [...] Dose Rate Site 0.9 % sodium chloride ([facility] sodium chloride 0.9%) injection 10 mL, intravenous, [...] home health visit Disciplines: SN, PT, OT, SETTER INDUCTION HEATING EQUIPMENT, STRUCTURAL METAL WORKER, Skilled Disciplines Monitor patient's vital signs [...] visit during episode of care Description: Home nitroglycerin separator operator to measure vital signs during every [...] documented in this encounter Care Teams Field Application Engineer Relationship Specialty Start Date End Date Julio César Briseno MD PCP - General 10/01/16 Eren Cr MD Referring Physician Medical Oncology 11/25/18 Yohana Bowen MD Radiation Oncologist Radiation Oncology 11/25/18 documented as of this encounter
--- OUTSIDE RECORDS SUMMARY | 2024-06-26 01:59 | XMS_ITS | Encounter Summary ---
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 Gender Identity Not on file Sexual Orientation [...] home health visit Disciplines: SN, PT, OT, STORAGE SOLUTIONS ARCHITECT, MARKETING EDITOR, Skilled Disciplines Monitor patient's vital signs every [...] visit during episode of care Description: Home traffic enumerator to measure vital signs during every home [...] Scheduled documented in this encounter Care Teams Test Lead Relationship Specialty Start Date End Date Julio César Briseno MD PCP - General 10/01/16 Eren Cr MD Referring Physician Medical Oncology 11/25/18 Yohana Bowen MD Radiation Oncologist Radiation Oncology 11/25/18 documented as of this encounter
--- OUTSIDE RECORDS SUMMARY | 2024-06-26 01:59 | XMS_ITS | Encounter Summary ---
Author Organization [facility] Address [address] [place] [address] Phone Care Team Providers Care Corrective And Manual Arts Therapist Name Role Phone Julio César Briseno MD Primary Care Provider [phone] Eren Cr MD Unavailable [phone] Yohana Bowen MD Unavailable Reason for Visit * Reason Comments Injections * Episode Based Medications (Routine) - Authorized Specialty Diagnoses / Procedures Referred By Contellen t Referred To Contact Oncology Diagnoses Neuroendocrine carcinoma (HCC) Malignant neoplasm metastatic to liver (HCC) Procedures [place] OCTREOTIDE INJECTION, DEPOT Octreotide 28 Day Cycles - Carcinoid Eren Cr MD [address] [place] [address] Phone: tel: fax: [address] [address] Phone: tel: fax: Referral ID Status Reason Start Date Expiration Date V isits Requested Visits Authorized [id number] Authorized 11/28/2017 02/05/2025 1 150 Encounter Details Date Type Department Care Team (Late st Contact Info) Description 12/13/2022 11:30 AM CDT Infusion [facility] Oncology [address] [place] [address] Neuroendocrine carcinoma (CMS/HCC) (HCC) (Primary Dx); Malignant [...] file 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
--- OUTSIDE RECORDS SUMMARY | 2024-06-26 01:59 | XMS_ITS | Encounter Summary ---
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 Gender Identity Not on file [...] Dose Rate Site 0.9 % sodium chloride ([facility] sodium chloride 0.9%) injection 10 mL, [...] Details Visit Type -SN Home Visit Discipline -Half-Way Problems Problem Description Start Date Status Goals Interventions Safety concerns Disciplines: Half-Way Safety needs related to infusion administration 11/14/2022 Active - 1 problem intervention scheduled/documen omar in this visit Learning/Teachin g Needs - IV Therapy Disciplines: Half-Way Teaching and learning needs for performing home IV therapy 11/14/2022 Active - 7 problem interventions scheduled/documen omar in this visit Monitor patient's vital signs every home health visit Disciplines: SN, PT, OT, PRODUCTION CLOTH CUTTER, SOUND TRUCK OPERATOR, Skilled Disciplines Monitor patient's vital signs [...] visit during episode of care Description: Home assisted living associate to measure vital signs during every home [...] Completed Patient instructed on frequent/proper hand-washing techniques, [place] precautions, avoid crowds and persons with known [...] concerns. documented in this encounter Care Teams Art Director Relationship Specialty Start Date End Date Julio César Briseno MD PCP - General 10/01/16 Eren Cr MD Referring Physician Medical Oncology 11/25/18 Yohana Bowen MD Radiation Oncologist Radiation Oncology 11/25/18 documented as of this encounter
--- OUTSIDE RECORDS SUMMARY | 2024-06-26 01:59 | XMS_ITS | Encounter Summary ---
Author Organization [facility] Address [address] [place] [address] Phone Care Team Providers Care Services Program Manager Name Role Phone Julio César Briseno MD Primary Care Provider Eren Cr MD Unavailable [phone] Yohana Bowen MD Unavailable Reason for Visit * Reason Onset Date Comments post operative medications 12/11/2022 Encounter Details Date Type Department Care Team (Late st Contact Info) Description 12/11/2022 Telephone [facility] Oncology [address] [place] [address] Eren Cr MD [address] [place], [place] [id number] post operative medications Social History Tobacco Use [...] file 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 All medications okay to take per clinical research team, information relayed to Pamela, message left on voicemail. documented in this encounter Plan of Treatment Not on file documented as of this encounter Visit Diagnoses Not on filedocumented in this encounter Care Teams Services Program Manager Relationship Specialty Start Date End Date Julio César Briseno MD PCP - General 10/01/16 Eren Cr MD Referring Physician Medical Oncology 11/25/18 Yohana Bowen MD Radiation Oncologist Radiation Oncology 11/25/18 documented as of this encounter
--- OUTSIDE RECORDS SUMMARY | 2024-06-26 01:59 | XMS_ITS | Encounter Summary ---
Author Organization [facility] Address [address] [place] [address] Phone Care Team Providers Care Artificial Breeding Technician Name Role Phone Julio César Briseno MD Primary Care Provider Eren Cr MD Unavailable Yohana Bowen MD Unavailable Reason for Visit * Reason Onset Date Comments Telephone 12/11/2022 Post Op Med Appr oval Encounter Details Date Type Department Care Team (Late st Contact Info) Description 12/11/2022 Documentation [facility] Otolaryngology [facility], [address] [place] [address] Xochitl Andersen CMA Telephone (Post [...] file 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 Cr's Office- [phone]- pt is part of an oncology research study and neededto get her post op meds approved to be taken. She states that per the research team, Amoxicillin, Tensed and Ofloxacin are all OK to take post op and will not interfere with the study protocols. documented in this encounter Plan of Treatment Not on file documented as of this encounter Visit Diagnoses Not on filedocumented in this encounter Care Teams Artificial Breeding Technician Relationship Specialty Start Date End Date Julio César Briseno MD PCP - General 10/01/16 Eren Cr MD Referring Physician Medical Oncology 11/25/18 Yohana Bowen MD Radiation Oncologist Radiation Oncology 11/25/18 documented as of this encounter
--- OUTSIDE RECORDS SUMMARY | 2024-06-26 01:59 | XMS_ITS | Encounter Summary ---
Author Organization [facility] Address [address] [place] [address] Phone Care Team Providers Care Group Leader Name Role Phone Julio César Briseno MD Primary Care Provider [phone] Eren Cr MD Unavailable Yohana Bowen MD Unavailable Reason for Referral * MRI/CAT/PET Scan (Routine) - Closed Specialty Diagnoses / Procedures Referred By Evelyne bowman Referred To Contact Radiology Diagnoses Neuroendocrine carcinoma (HCC) Procedures CT chest abdomen pelvis with contrast Eren Cr MD [address] [place] [address] Phone: tel: fax: [facility] Referral ID Status Reason Start Date Expiration Date Visits Re quested Visits Authorized [id number] Closed 12/11/2022 01/10/2024 1 1 Encounter Details Date Type Department Care Team (Late st Contact Info) Description 12/11/2022 Orders Only [facility] Oncology [address] [place] [address] Eren Cr MD [address] [place] [address] Neuroendocrine carcinoma (HCC) (Primary Dx) Social History [...] on file 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
--- OUTSIDE RECORDS SUMMARY | 2024-06-26 01:59 | XMS_ITS | Encounter Summary ---
Author Organization [facility] Address [address] [place] [address] Phone Care Team Providers Care Lead Operator Name Role Phone Julio César Briseno MD Primary Care Provider [phone] Eren Cr MD Unavailable [phone] Yohana Bowen MD Unavailable Reason for Visit * Episode Based Medications (Routine) - Authorized Specialty Diagnoses / Procedures Referred By Evelyne t Referred To Contact Oncology Diagnoses Neuroendocrine carcinoma (HCC) Malignant neoplasm metastatic to liver (HCC) Procedures [place] OCTREOTIDE INJECTION, DEPOT Octreotide 28 Day Cycles - Carcinoid Eren Cr MD [address] [facility] [address] [place] [address] Phone: tel: fax: [facility] [address] [address] Phone: tel: fax: Referral ID Status Reason Start Date Expiration Date V isits Requested Visits Authorized [id number] Authorized 11/28/2017 02/05/2025 1 150 Encounter Details Date Type Department Care Team (Late st Contact Info) Description 12/13/2022 10:30 AM CDT Office Visit [facility] Oncology [address] [place] [address] [place] [address] Eren Cr MD [address] [facility] [address] [place] [address] Neuroendocrine carcinoma (CMS/HCC) (HCC) (Primary Dx); Malignant [...] on file 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 NEURO: A&Ox4, health safety instructor grossly intact by conversation, moving all extremities [...] its performance characteristics determined by [facility] in a manner consistent with CLIA requirements. [...] a homogeneous time-resolved immunofluorescent assay manufactured by [employer] and performed on the [employer] Compact Plus. ? Values obtained with different assay methods or kits may be different and cannot be used interchangeably. ? Test results cannot be interpreted as absolute evidence for the presence or absence of malignant disease. Test Performed by: [place] [address] Inshore Undersea Warfare Officer: Immanuel Novak M.D. Ph.D.; CLIA# [id number] Blood 01/10/2023 9:26 AM CDT 01/10/2023 11:16 AM CDT Eren Cr MD LAB BLOOD ORDERABLES Final Re sult Performing Organization Address [facility] Co de Phone Number [facility] [place] [address] * (ABNORMAL) Vitamin D 25 hydroxy (01/10/2023 9:26 AM CDT) Pathologist [facility] [place] Vitamin D 25-OH 24(L) 30 - 80 ng/mL [facility] Blood 01/10/2023 9:26 AM CDT 01/10/2023 10:40 AM CDT Eren Cr MD LAB BLOOD ORDERABLES Final Re sult Performing Organization Address City/[facility]/ZIP Co de Phone Number [facility] [place] [address] * (ABNORMAL) Phosphorus (01/10/2023 9:26 AM CDT) Phosphorus, pl 2.2(L) 2.3 - 4.5 mg/dL [facility] Comment:Testing performed by : [facility], [address] [place] [address] Blood 01/10/2023 9:26 AM CDT 01/10/2023 9:27 AM CDT us Eren Cr MD LAB BLOOD ORDERABLES Final Re sult [facility] Department [place] [address] * (ABNORMAL) Lipid panel (01/10/2023 9:26 AM CDT) Pathologist [facility] Cholesterol 171 30 - 199 mg/dL [facility] Comment: Interpretive Data Ages < [...] revised on 2018. Non-HDL Cholesterol 109 mg/dL [facility] Comment: Interpretive Data [...] on 2018. Chol/HDL ratio 3 [facility] Blood 01/10/2023 9:26 AM CDT 01/10/2023 10:40 AM CDT us Eren Cr MD LAB BLOOD ORDERABLES Final Re sult Performing Organization Address City/[facility]/ZIP Co de Phone Number [facility] Department [place] [address] * (ABNORMAL) TSH (01/10/2023 9:26 AM CDT) Thyroid Stimulating Hormone 8.70(H) 0.30 - 4.20 mcIUnit/mL [facility] Blood 01/10/2023 9:26 AM CDT 01/10/2023 10:40 AM CDT us Eren Cr MD LAB BLOOD ORDERABLES Final Re sult Performing Organization Address City/[facility]/ZIP Co de Phone Number [facility] Department [place] [address] * Magnesium (01/10/2023 9:26 AM CDT) Magnesium 1.4 1.4 - 2.5 mg/dL [facility] Comment:Testing performed by : [facility], [address] [place] [address] Blood 01/10/2023 9:26 AM CDT 01/10/2023 9:27 AM CDT Eren Cr MD LAB BLOOD ORDERABLES Final Re sult [facility] Department [place] [address] * (ABNORMAL) Comprehensive metabolic panel (01/10/2023 9:26 AM CDT) Sodium 138 135 - 145 mmol/L [facility] Comment:Testing performed by : [facility], [address] [place] [address] Potassium, pl 4.0 3.3 - 4.9 mmol/L [facility] Chloride 108 97 - 110 mmol/L [facility] CO2 25 22 - 32 mmol/L [facility] Anion gap 5 2 - 15 mmol/L [facility] BUN 14 6 - 25 mg/dL [facility] Creatinine 1.37(H) 0.60 - 1.10 mg/dL [facility] Glucose 124 70 - 199 mg/dL [facility] [...] 2022. Calcium 10.0 8.5 - 10.3 mg/dL [facility] Bilirubin, total 0.5 0.1 - 1.2 mg/dL [facility] Protein, pl 6.5 6.5 - 8.5 g/dL [facility] Albumin 4.1 3.5 - 5.0 g/dL [facility] Alk phos 65 40 - 130 Units/L [facility] ALT 24 7 - 45 Units/L [facility] AST 36 10 - 45 Units/L [facility] Blood 01/10/2023 9:26 AM CDT 01/10/2023 9:27 AM CDT us Eren Cr MD LAB BLOOD ORDERABLES Final Re sult [facility] Department [place] [address] * (ABNORMAL) CBC with auto differential (01/10/2023 9:26 AM CDT) WBC 2.8(L) 3.8 - 9.9 K/cumm [facility] Comment:Testing performed by : [address] [address] Hgb 11.2(L) 11.9 - 15.5 g/dL [facility] Comment:Testing performed by : [address] [address] Hct 33.7(L) 35.6 - 45.5 % [facility] Comment:Testing performed by : [address] [address] Plt 93(L) 150 - 400 K/cumm [facility] Comment:Testing performed by : [address] [address] MPV 10.3 9.1 - 12.3 fL [facility] RBC 3.46(L) 3.90 - 5.20 M/cumm [facility] MCV 97.4(H) 81.3 - 96.4 fL [facility] MCH 32.4 27.1 - 33.3 pg [facility] MCHC 33.2 32.3 - 35.7 g/dL [facility] RDW CV 14.8 11.1 - 14.9 % [facility] RDW SD 52.6(H) 35.7 - 48.1 fL [facility] NRBC abs 0.00 0.00 - 0.01 K/cumm [facility] Blood 01/10/2023 9:26 AM CDT 01/10/2023 9:27 AM CDT us Eren Cr MD LAB BLOOD ORDERABLES Final Re sult [facility] Department [place] [address] documented in this encounter Visit Diagnoses Diagnosis [...] 023 documented in this encounter Care Teams Lead Operator Relationship Specialty Start Date End Date Julio César Briseno MD PCP - General 10/01/16 Eren Cr MD Referring Physician Medical Oncology 11/25/18 Yohana Bowen MD Radiation Oncologist Radiation Oncology 11/25/18 documented as of this encounter
--- OUTSIDE RECORDS SUMMARY | 2024-06-26 02:00 | XMS_ITS | Encounter Summary ---
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] Scheduled documented in this encounter Care Teams Shuttler Relationship Specialty Start Date End Date Julio César Briseno MD PCP - General 10/01/16 Eren Cr MD Referring Physician Medical Oncology 11/25/18 Yohana Bowen MD Radiation Oncologist Radiation Oncology 11/25/18 documented as of this encounter
--- OUTSIDE RECORDS SUMMARY | 2024-06-26 02:00 | XMS_ITS | Encounter Summary ---
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 cabozantinib Eren Cr MD [address] [facility] [address] [place] [address] Phone: tel: fax: [facility] [address] [facility] Advanced Medicine 7th [place] [address] Phone: tel: Referral ID Status Reason Start Date Expiration Date Visits Re quested Visits Authorized [id number] Closed 06/21/2021 06/26/2024 1 99 Encounter Details Date Type Department Care Team (Latest Contact Info) Description 10/18/2022 10:45 AM CDT Clinical Support [facility] Oncology [address] [place] [address] Neuro-endocrine carcinoma (HCC) Social History Tobacco Use [...] file Legal 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
--- OUTSIDE RECORDS SUMMARY | 2024-06-26 02:00 | XMS_ITS | Encounter Summary ---
Author Organization [facility] Healthcare Address [address] [place] [address] Care Team Providers Care Social Media Marketing Specialist Name Role Phone Julio César Briseno MD Primary Care Provider [phone] Eren Cr MD Unavailable [phone] Yohana Bowen MD Unavailable Encounter Details Date Type Department Care Team (Latest Contact Info) Description 11/15/2022 1:03 PM CDT - 11/15/2022 11:59 PM CDT Hospital Encounter [facility] [address] [place] [address] [id number] Neuroendocrine carcinoma (CMS/HCC) (HCC); Malignant neoplasm metastatic [...] on file 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 Gender Identity Not on file Sexual [...] nightly 0.9 % sodium chloride ([facility] sodium chloride 0.9%) injectionIndication s:line care Infuse 10 mL into a venous catheter once a week On saturday06/20/20 24 amLODIPine (NORVASC) 5 mg tabletIndications:h ypertension Take 0.5 tablets (2.5 mg total) by mouth nightly 07/27/2022 06/11/20 23 ascorbic acid, vitamin C, 500 mg capsuleIndications: supplement Take 1 tablet by mouth early childhood educator aide before breakfast 07/04/2016 06/20/20 24 cholecalciferol (VITAMIN D-3) 2,000 unit capsule Take 1 capsule (2,000 Units total) by mouth daily 30 capsule 2 04/25/2019 11/17/19 23 clotrimazole-betame thasone (LOTRISONE) cream Apply 1 Application topically daily as needed (rash) 06/20/20 24 coenzyme [id number] E 100-5 mg-unit capsuleIndications: supplement Take 1 tablet by mouth early childhood educator aide before breakfast 06/20/20 24 diphenoxylate-atrop ine (LOMOTIL) [...] Fluids every -Heparin to flush 06/20/20 24 INV[facility] cabozantinib/placeb o (/[id number]) 20 mg tabletIndications:c ancer study Take 1 tablet (20 mg total) by mouth nightly Take on an empty stomach (no food for 2 hours before and 1 hour after each dose).?? Avoid Parmelee's Wort, grapefruit products and [place] oranges while on treatment. 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 Current interpretive data was last revised 2018. Creatinine Ur 107.1 mg/dL [facility] Comment: Interpretive Data No reference range established. Current interpretive data was last revised 2018. Protein/creatinin e ratio 65.4 0.0 - 180.0 mg/g CR [facility] Urine 11/15/2022 3:45 PM CDT 11/15/2022 6:33 PM CDT Eren Cr MD LAB URINE ORDERABLES Final Re sult [facility] [place] [address] * (ABNORMAL) eGFR (11/15/2022 1:30 PM CDT) Pathologist [facility] eGFR 48(L) 90 - 130 mL/min/1. 73 m2 [facility] Comment: Interpretive Data Reference Interval [...] Re sult [facility] [place] [address] * (ABNORMAL) Differential, auto (11/15/2022 1:30 PM CDT) Neutrophil abs 2.1 1.7 - 6.5 K/cumm [facility] Comment:Testing performed by : [facility], [address] [place] [address] Imm gran abs 0.0 0.0 - 0.1 K/cumm [facility] Lymphocyte abs 0.5(L) 0.8 - 3.3 K/cumm [facility] Monocyte abs 0.6 0.2 - 0.8 K/cumm [facility] Eosinophil abs 0.2 0.0 - 0.5 K/cumm [facility] Basophil abs 0.0 0.0 - 0.1 K/cumm [facility] Neutrophil pct 61.5 % [facility] Comment: Interpretive Data Percent cell count reference ranges are not reported, since discordance with absolute values may lead to misinterpretation of CBC data. Current Interpretive Data was last revised on 2017. Imm gran pct 0.6 % [facility] Comment: Interpretive Data Percent cell count reference ranges are not reported, since discordance with absolute values may lead to misinterpretation of CBC data. Current Interpretive Data was last revised on 2017. Lymphocyte pct 14.9 % [facility] Comment: Interpretive Data Percent cell count reference ranges are not reported, since discordance with absolute values may lead to misinterpretation of CBC data. Current Interpretive Data was last revised on 2017. Monocyte pct 15.8 % [facility] Comment: Interpretive Data Percent cell count reference ranges are not reported, since discordance with absolute values may lead to misinterpretation of CBC data. Current Interpretive Data was last revised on 2017. Eosinophil pct 6.6 % [facility] Comment: Interpretive Data Percent cell count reference ranges are not reported, since discordance with absolute values may lead to misinterpretation of CBC data. Current Interpretive Data was last revised on 2017. Basophil pct 0.6 % [facility] Comment: Interpretive Data Percent cell count reference ranges are not reported, since discordance with absolute values may lead to misinterpretation of CBC data. Current Interpretive Data was last revised on 2017. Blood 11/15/2022 1:30 PM CDT 11/15/2022 1:32 PM CDT us Eren Cr MD LAB BLOOD ORDERABLES Final Re sult Performing Organization Address City/[facility]/ZIP Co de Phone Number [facility] [place] [address] * Iron profile w/ IBC (11/15/2022 1:30 PM CDT) Iron 67 35 - 145 mcg/dL [facility] TIBC 284 250 - 400 mcg/dL [facility] Transferrin saturation 24 20 - 50 % [facility] Blood 11/15/2022 1:30 PM CDT 11/15/2022 3:51 PM CDT Alejo Mi MD LAB BLOOD ORDERABLES Fin al Result Performing Organization Address City/[facility]/ZIP Co de Phone Number [facility] Department [place] [address] * (ABNORMAL) Magnesium (11/15/2022 1:30 PM CDT) Magnesium 1.3(L) 1.4 - 2.5 mg/dL [facility] Comment:Testing performed by : [facility], [address] [place] [address] Blood 11/15/2022 1:30 PM CDT 11/15/2022 1:32 PM CDT us Eren Cr MD LAB BLOOD ORDERABLES [facility] Department [place] [address] * (ABNORMAL) Lipid panel (11/15/2022 1:30 PM [...] on 2018. HDL 54 >=40 mg/dL [facility] Comment: Interpretive Data Ages < [...] 2018. LDL, calculated 50 <=129 mg/dL [facility] Comment: Interpretive Data Ages < [...] revised on 2018. Non-HDL Cholesterol 107 mg/dL [facility] Comment: Interpretive Data Ages < [...] ratio 3 [facility] Blood 11/15/2022 1:30 PM CDT 11/15/2022 3:33 PM CDT Eren Cr MD LAB BLOOD ORDERABLES Final Re sult Performing Organization Address City/[facility] de Phone Number [facility] Department [place] [address] * Phosphorus (11/15/2022 1:30 PM CDT) [facility] Phosphorus, pl 2.5 2.3 - 4.5 mg/dL [facility] Comment:Testing performed by : [address] [address] Blood 11/15/2022 1:30 PM CDT 11/15/2022 1:32 PM CDT Eren Cr MD LAB BLOOD ORDERABLES Final Re sult Performing Organization Address City/[facility]/ZIP Co de Phone Number [facility] Department [place] [address] * Vitamin D 25 hydroxy (11/15/2022 1:30 PM CDT) [facility] Vitamin D 25-OH 32 30 - 80 ng/mL [facility] Blood 11/15/2022 1:30 PM CDT 11/15/2022 3:33 PM CDT Eren Cr MD LAB BLOOD ORDERABLES Final Re sult [facility] Department [place] [address] * (ABNORMAL) CBC with auto differential (11/15/2022 1:30 PM CDT) [facility] WBC 3.5(L) 3.8 - 9.9 K/cumm [facility] Comment:Testing performed by : [address] [address] Hgb 10.7(L) 11.9 - 15.5 g/dL [facility] Comment:Testing performed by : [address] [address] Hct 32.4(L) 35.6 - 45.5 % [facility] Comment:Testing performed by : [address] [address] Plt 98(L) 150 - 400 K/cumm [facility] Comment:Testing performed by : [address] [address] MPV 10.1 9.1 - 12.3 fL [facility] RBC 3.27(L) 3.90 - 5.20 M/cumm [facility] MCV 99.1(H) 81.3 - 96.4 fL [facility] MCH 32.7 27.1 - 33.3 pg [facility] MCHC 33.0 32.3 - 35.7 g/dL [facility] RDW CV 13.7 11.1 - 14.9 % [facility] RDW SD 49.5(H) 35.7 - 48.1 fL [facility] NRBC abs 0.00 0.00 - 0.01 K/cumm [facility] Blood 11/15/2022 1:30 PM CDT 11/15/2022 1:32 PM CDT Eren Cr MD LAB BLOOD ORDERABLES Final Re sult [facility] [place] [address] * (ABNORMAL) Comprehensive metabolic panel (11/15/2022 1:30 PM CDT) Sodium 136 135 - 145 mmol/L [facility] Comment:Testing performed by : [address] [address] Potassium, pl 3.7 3.3 - 4.9 mmol/L [facility] Chloride 104 97 - 110 mmol/L [facility] CO2 26 22 - 32 mmol/L [facility] Anion gap 6 2 - 15 mmol/L [facility] BUN 19 8 - 25 mg/dL [facility] Creatinine 1.20(H) 0.60 - 1.10 mg/dL [facility] Glucose 110 70 - 199 mg/dL [facility] [...] 2022. Calcium 10.1 8.5 - 10.3 mg/dL [facility] Bilirubin, total 0.5 0.1 - 1.2 mg/dL [facility] Protein, pl 6.6 6.5 - 8.5 g/dL [facility] Albumin 4.0 3.5 - 5.0 g/dL [facility] Alk phos 65 40 - 130 Units/L [facility] ALT 22 7 - 45 Units/L [facility] AST 33 10 - 45 Units/L [facility] Blood 11/15/2022 1:30 PM CDT 11/15/2022 1:32 PM CDT us Eren Cr MD LAB BLOOD ORDERABLES Final Re sult [facility] [place] [address] * (ABNORMAL) Chromogranin A (11/15/2022 1:30 PM CDT) Chromogranin A 1170(H) <93 ng/mL [facility] Comment: Impaired renal or hepatic [...] homogeneous time-resolved immunofluorescent assay manufactured by [employer] and performed on the [employer] Kryptor Compact Plus. ? Values obtained with different assay methods or kits may be different and cannot be used interchangeably. ? Test results cannot be interpreted as absolute evidence for the presence or absence of malignant disease. Test Performed by: [facility] [address] [place] [address] Online Education Manager: Immanuel Novak M.D. 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
--- OUTSIDE RECORDS SUMMARY | 2024-06-26 02:00 | XMS_ITS | Encounter Summary ---
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) Procedures OK OCTREOTIDE INJECTION, DEPOT Octreotide 28 Day Cycles - Carcinoid Eren Cr MD [address] [place] [address] Phone: tel: fax: [address] [address] Phone: tel: fax: Referral ID Status Reason Start Date Expiration Date V isits Requested Visits Authorized [id number] Authorized 11/28/2017 02/05/2025 1 150 Encounter Details Date Type Department Care Team (Latest Contact Info) Description 11/15/2022 1:30 PM CDT Clinical Support [facility] [address] [place] [address] Neuroendocrine carcinoma (CMS/HCC) (HCC); Malignant neoplasm metastatic [...] on file 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
--- OUTSIDE RECORDS SUMMARY | 2024-06-26 02:00 | XMS_ITS | Encounter Summary ---
Author Organization [facility] Healthcare Address [address] [place] [address] Care Team Providers Care Ventilation Worker Name Role Phone Julio César Briseno MD Primary Care Provider [phone] Eren Cr MD Unavailable [phone] Yohana Bowen MD Unavailable Encounter Details Date Type Department Care Team (Late st Contact Info) Description 12/17/2022 11:59 PM CDT Anesthesia Event [facility] Operating Room [address] [place] [address] Soniya Urias NP [address] 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 Patient verbalized understanding of instructions. The patient is currently scheduled for their procedure at: [facility]. The case was discussed with myself, CPAP attending Dr. Ramesh, surgeon's office Dr. Rojas and [facility] ASC Leader Dr. Estes. 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 We recommend that the patient's surgery be performed at one of the following locations: [facility] Main OR (Pods 1/2/3/5), [place] [facility] Pod 4 and [facility] This assessment was relayed to the surgical/procedural team by: [employer] Mobile message. Please call the CPAP clinic at [phone] with any questions. Blood bank needs for [...] End Date Provider 0.9 % sodium chloride ([facility] sodium chloride 0.9%) injection Past Week -- [...] -- -- -- Levon Kee MD coenzyme [id number] E 100-5 mg-unit capsule 11/21/2022 -- -- [...] Past Week -- -- Levon Kee MD [facility] cabozantinib/placebo (/[id number]) 20 mg tablet 11/20/2022 01/29/22 -- Eren Cr Jr., MD levothyroxine (SYNTHROID) 88 mcg tablet 11/21/2022 10/12/22 -- Eren Cr MD Take 1 tablet (88 mcg total) by mouth pick and shovel man before breakfast Patient taking differently: Take 1 tablet (88 mcg total) by mouth pick and shovel man before breakfast lidocaine-prilocaine (lidocaine-prilocaine) cream 11/21/2022 09/19/21 [...] needed for nausea or vomiting ostomy supplies [facility] -- 09/21/19 -- Greyson Reeves MD Patient [...] Outpatient Medications: ??? 0.9 % sodium chloride (INV-[facility] sodium chloride 0.9%) injection ??? amLODIPine (NORVASC) 5 mg tablet ??? ascorbic acid, vitamin C, 500 mg capsule ??? cholecalciferol (VITAMIN D-3) 1,000 unit ??? clotrimazole-betamethasone (LOTRISONE) cream ??? coenzyme X58-bwhiech E 100-5 mg-unit capsule ??? denosumab (Xgeva) 120 mg/1.7 mL (70 mg/mL) injection ??? diphenoxylate-atropine (LOMOTIL) 2.5-0.025 mg per tablet ??? DULoxetine DR (CYMBALTA) 30 mg capsule ??? fluticasone propionate (FLONASE) 50 mcg/actuation nasal spray ??? heparin 100 unit/mL solution ??? [facility] cabozantinib/placebo (/[id number]) 20 mg tablet ??? levothyroxine (SYNTHROID) 88 [...] filed for this visit. Relevant diagnostics: ECG(s): 11/20/20202951-TKK-QZZ, incomplete LBBB, LVH, HR 64 bpm Echocardiogram(s): [...] on filedocumented in this encounter Care Teams Ventilation Worker Relationship Specialty Start Date End Date Julio César Briseno MD PCP - General 10/01/16 Eren Cr MD Referring Physician Medical Oncology 11/25/18 Yohana Bowen MD Radiation Oncologist Radiation Oncology 11/25/18 documented as of this encounter
--- OUTSIDE RECORDS SUMMARY | 2024-06-26 02:00 | XMS_ITS | Encounter Summary ---
Author Organization [facility] Address [address] [place] [address] Phone Care Team Providers Care Kitchen Assistant Name Role Phone Julio César Briseon MD Primary Care Provider [phone] Eren Cr MD Unavailable [phone] Yohana Bowen MD Unavailable Encounter Details Date Type Department Care Team (Latest Contact Info) Description 10/30/2022 10:15 AM CDT Procedure visit [facility] Otol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 Medical history was obtained by medical health researcher and reviewed. Results were reviewed with the [...] Primary documented in this encounter Care Teams Kitchen Assistant Relationship Specialty Start Date End Date Julio César Briseno MD PCP - General 10/01/16 Eren Cr MD Referring Physician Medical Oncology 11/25/18 Yohana Bowen MD Radiation Oncologist Radiation Oncology 11/25/18 documented as of this encounter
--- OUTSIDE RECORDS SUMMARY | 2024-06-26 02:00 | XMS_ITS | Encounter Summary ---
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 Gender Identity Not on file Sexual [...] Mcfp Safety needs related to infusion administration 09/13/2022 [...] home health visit Disciplines: SN, PT, OT, SUBASSEMBLY ASSEMBLER, CDL DEDICATED TRUCK DRIVER, Skilled Disciplines Monitor patient's vital signs every [...] visit during episode of care Description: Home licensed clinician to measure vital signs during every [...] Scheduled documented in this encounter Care Teams Rn Faculty Relationship Specialty Start Date End Date Julio César Briseno MD PCP - General 10/01/16 Eren Cr MD Referring Physician Medical Oncology 11/25/18 Yohana Bowen MD Radiation Oncologist Radiation Oncology 11/25/18 documented as of this encounter
--- OUTSIDE RECORDS SUMMARY | 2024-06-26 02:00 | XMS_ITS | Encounter Summary ---
Author Organization [facility] Address [address] [place] [address] Phone Care Team Providers Care Ornamental Ironworker Helper Name Role Phone Juloi César Briseno MD Primary Care Provider [phone] Eren Cr MD Unavailable [phone] Yohana Bowen MD Unavailable Reason for Visit * Reason Comments Weakness - Generalized Encounter Details Date Type Department Care Team (Late st Contact Info) Description 11/07/2022 2:15 PM CDT Home Care Visit [facility] [address] [place] [address] Sherlyn Orozco RN SN OASIS [...] on file Legal 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 Female 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 Gender Identity Not on file Sexual Orientation [...] Body Mass Index 30.11 09/13/2022 10:55 AM STATION CAPTAIN documented in this encounter Miscellaneous Notes * [...] Visit Type -SN OASIS Dischar ge Discipline -Senior Care Problems Problem Description Start [...] home health visit Disciplines: SN, PT, OT, CARDIAC CATH LAB MANAGER, FLAG FOOTBALL COACH, Skilled Disciplines Monitor patient's vital signs every [...] visit during episode of care Description: Home merchandise worker to measure vital signs during every [...] Scheduled documented in this encounter Care Teams Ornamental Ironworker Helper Relationship Specialty Start Date End Date Julio César Briseno MD PCP - General 10/01/16 Eren Cr MD Referring Physician Medical Oncology 11/25/18 Yohana Bowen MD Radiation Oncologist Radiation Oncology 11/25/18 documented as of this encounter
--- OUTSIDE RECORDS SUMMARY | 2024-06-26 02:00 | XMS_ITS | Encounter Summary ---
Author Organization [facility] Address [address] [place] [address] Phone Care Team Providers Care Turbine Operator Name Role Phone Julio César Briseno MD Primary Care Provider [phone] Eren Cr MD Unavailable [phone] Yohana Bowen MD Unavailable Encounter Details Date Type Department Care Team (Late st Contact Info) Description 11/14/2022 Orders Only [facility] Nephrology [address] [facility] Advanced Medicine 5th [place] [address] [place] [address] Alejo Mi MD [facility] [place] [address] Social History Tobacco Use [...] on file Legal 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
--- OUTSIDE RECORDS SUMMARY | 2024-06-26 02:00 | XMS_ITS | Encounter Summary ---
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) Procedures CT chest abdomen pelvis with contrast Eren Cr MD [address] [place] [address] Phone: tel: fax: [address] [address] Referral ID Status Reason Start Date Expiration Date Visits Re quested Visits Authorized [id number] Closed 11/15/2022 12/15/2023 1 1 Reason for Visit * Episode Based Medications (Routine) - Closed Specialty Diagnoses / Procedures Referred By Contac t Referred To Contact Diagnoses Neuro-endocrine carcinoma (HCC) Procedures study [id number] phase III cabozantinib Eren Cr MD [address] [facility] [address] [place] [address] Phone: tel: fax: [facility] at [facility] and [facility] [address] [facility] Advanced Medicine 7th [place] [address] Phone: tel: Referral ID Status Reason Start Date Expiration Date Visits Re quested Visits Authorized [id number] Closed 06/21/2021 06/26/2024 1 99 Encounter Details Date Type Department Care Team (Late st Contact Info) Description 11/15/2022 2:00 PM CDT Office Visit [facility] Oncology [address] [facility] [facility] [place] [address] Eren Cr MD [address] [facility] [address] [place] [address] Neuro-endocrine carcinoma (HCC) (Primary Dx); Neuroendocrine carcinoma [...] 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 NEURO: A&Ox4, launderette attendant grossly intact by conversation, moving all extremities [...] Results * Magnesium (12/13/2022 10:07 AM CDT) [facility] Magnesium 1.4 1.4 - 2.5 mg/dL [facility] Comment:Testing performed by : [facility], [address] [place] [address] Blood 12/13/2022 10:0 7 AM CDT 12/13/2022 10:07 AM CDT us Eren Cr MD LAB BLOOD ORDERABLES Final Re sult [facility] [place] [address] * (ABNORMAL) Chromogranin A (12/13/2022 10:07 AM CDT) [facility] Chromogranin A 1630(H) <93 ng/mL [facility] Comment: Impaired renal or hepatic function or treatment with proton pump inhibitors may result in artifactual elevations of Chromogranin A. ADDITIONAL INFORMATION This test was developed and its performance characteristics determined by [facility] in a manner consistent with CLIA [...] a homogeneous time-resolved immunofluorescent assay manufactured by [employer] and performed on the Trunity Kryptor Compact Plus. ? Values obtained with different assay methods or kits may be different and cannot be used interchangeably. ? Test results cannot be interpreted as absolute evidence for the presence or absence of malignant disease. Test Performed by: [facility] [address] [place] [address] Vp Customer Service: Immanuel Novak M.D. Ph.D.; IA# [id number] Blood 12/13/2022 10:0 7 AM CDT 12/13/2022 11:37 AM CDT Eren Cr MD LAB BLOOD ORDERABLES Final Re sult [facility] [place] [address] * (ABNORMAL) Comprehensive metabolic panel (12/13/2022 10:07 AM CDT) [facility] Sodium 140 135 - 145 mmol/L [facility] Comment:Testing performed by : [facility], [address] [place] [address] Potassium, pl 4.7 3.3 - 4.9 mmol/L [facility] Chloride 109 97 - 110 mmol/L [facility] CO2 26 22 - 32 mmol/L [facility] Anion gap 5 2 - 15 mmol/L [facility] BUN 17 8 - 25 mg/dL [facility] Creatinine 1.43(H) 0.60 - 1.10 mg/dL [facility] Glucose 84 70 - 199 mg/dL [facility] [...] 2022. Calcium 9.6 8.5 - 10.3 mg/dL [facility] Bilirubin, total 0.4 0.1 - 1.2 mg/dL [facility] Protein, pl 6.5 6.5 - 8.5 g/dL [facility] Albumin 3.9 3.5 - 5.0 g/dL [facility] Alk phos 62 40 - 130 Units/L [facility] ALT 20 7 - 45 Units/L [facility] AST 32 10 - 45 Units/L [facility] Blood 12/13/2022 10:0 7 AM CDT 12/13/2022 10:07 AM CDT us Eren Cr MD LAB BLOOD ORDERABLES Final Re sult [facility] [place] [address] * (ABNORMAL) CBC with auto differential (12/13/2022 10:07 AM CDT) Pathologist [facility] WBC 2.8(L) 3.8 - 9.9 K/cumm [facility] Comment:Testing performed by : [address] [address] Hgb 10.9(L) 11.9 - 15.5 g/dL [facility] Comment:Testing performed by : [address] [address] Hct 33.0(L) 35.6 - 45.5 % [facility] Comment:Testing performed by : [address] [address] Plt 85(L) 150 - 400 K/cumm [facility] Comment:Testing performed by : [facility], [address] [place] [address] MPV 10.0 9.1 - 12.3 fL [facility] RBC 3.37(L) 3.90 - 5.20 M/cumm [facility] MCV 97.9(H) 81.3 - 96.4 fL [facility] MCH 32.3 27.1 - 33.3 pg [facility] MCHC 33.0 32.3 - 35.7 g/dL [facility] RDW CV 13.5 11.1 - 14.9 % [facility] RDW SD 47.9 35.7 - 48.1 fL [facility] NRBC abs 0.00 0.00 - 0.01 K/cumm [facility] Blood 12/13/2022 10:0 7 AM CDT 12/13/2022 10:07 AM CDT Eren Cr MD LAB BLOOD ORDERABLES Final Re sult Performing Organization Address City/[facility]/ZIP Co de Phone Number [facility] [place] [address] * (ABNORMAL) Vitamin D 25 hydroxy (12/13/2022 10:07 AM CDT) Vitamin D 25-OH 22(L) 30 - 80 ng/mL [facility] Blood 12/13/2022 10:0 7 AM CDT 12/13/2022 11:35 AM CDT Eren Cr MD LAB BLOOD ORDERABLES Final Re sult [facility] [place] [address] * (ABNORMAL) Phosphorus (12/13/2022 10:07 AM CDT) Phosphorus, pl 1.8(L) 2.3 - 4.5 mg/dL [facility] Comment:Testing performed by : [facility], [address] [facility] [address] Blood 12/13/2022 10:0 7 AM CDT 12/13/2022 10:07 AM CDT us Eren Cr MD LAB BLOOD ORDERABLES Final Re sult [facility] [place] [address] * (ABNORMAL) Lipid panel (12/13/2022 10:07 AM [...] on 2018. Triglycerides 183(H) <=149 mg/dL [facility] Comment: [...] on 2018. HDL 49 >=40 mg/dL [facility] Comment: [...] on 2018. LDL, calculated 75 <=129 mg/dL [facility] Comment: Interpretive Data Ages [...] on 2018. Non-HDL Cholesterol 112 mg/dL [facility] Comment: Interpretive [...] 3 [facility] Blood 12/13/2022 10:0 7 AM CDT 12/13/2022 11:35 AM CDT us Eren Cr MD LAB BLOOD ORDERABLES Final Re sult [facility] [place] [address] documented in this encounter Visit Diagnoses Diagnosis [...] in this encounter Care Teams Director Of Ancillary Services Relationship Specialty Start Date End Date Julio César Briseno MD PCP - General 10/01/16 Eren Cr MD Referring Physician Medical Oncology 11/25/18 Yohana Bowen MD Radiation Oncologist Radiation Oncology 11/25/18 documented as of this encounter
--- OUTSIDE RECORDS SUMMARY | 2024-06-26 02:00 | XMS_ITS | Encounter Summary ---
Author Organization [facility] Address [address] [place] [address] Phone Care Team Providers Care Ophthalmic Medical Technologist Name Role Phone Julio César Briseno MD Primary Care Provider Eren Cr MD Unavailable [phone] Yohana Bowen MD Unavailable Encounter Details Date Type Department Care Team (Late st Contact Info) Description 11/15/[address] 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
--- OUTSIDE RECORDS SUMMARY | 2024-06-26 02:00 | XMS_ITS | Encounter Summary ---
Author Organization [facility] Address [address] [place] [address] Phone Care Team Providers Care Student Career Development Specialist Name Role Phone Julio César Briseno MD Primary Care Provider [phone] Eren Cr MD Unavailable [phone] Yohana Bowen MD Unavailable Reason for Visit * Episode Based Medications (Routine) - Closed Specialty Diagnoses / Procedures Referred By Evelyne bowman Referred To Contact Diagnoses Neuro-endocrine carcinoma (HCC) Procedures study [id number] phase III cabozantinib Eren Cr MD [address] [facility] [address] [place] [address] Phone: tel: fax: [facility] and [facility] [address] [facility] Advanced Medicine 7th [place] [address] Phone: tel: Referral ID Status Reason Start Date Expiration Date Visits Re quested Visits Authorized [id number] Closed 06/21/2021 06/26/2024 1 99 Encounter Details Date Type Department Care Team (Latest Contact Info) Description 10/18/2022 12:15 PM CDT Research Med Pick-Up/CTRU Air Valve Repairer [facility] Oncology [address] [place] [phone] Neuro-endocrine carcinoma (HCC) (Primary Dx) Social History [...] on file 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 Gender Identity Not on file [...] Date First Ordered Date [id number] cabozantinib/pl acebo (2018-02-122/[id number]) tablet 20 mg 1 10/18/2022 Nursing Count Last Ordered Date First Orde red Date ONCBCN PROVIDER COMMUNICATION 10 1 10/19/19 ONCBCN STUDY COMMUNICATION 2 1 10/18/2022 ONCBCN TREATMENT PARAMETERS 1 1 10/18/2022 RESEARCH STUDY CLARIFICATION ORDER 1 2022 Appointment Requests Count Last Ordered Date Fi rst Ordered Date ONCBCN TAKE HOME STUDY DRUG APPT 1 10/19/19 documented in this encounter Care Teams Student Career Development Specialist Relationship Specialty Start Date End Date Julio César Briseno MD PCP - General 10/01/16 Eren Cr MD Referring Physician Medical Oncology 11/25/18 Yohana Bowen MD Radiation Oncologist Radiation Oncology 11/25/18 documented as of this encounter
--- OUTSIDE RECORDS SUMMARY | 2024-06-26 02:00 | XMS_ITS | Encounter Summary ---
Author Organization [facility] Address [address] [place] [address] Phone Care Team Providers Care Aircraft Painter Apprentice Name Role Phone Julio César Briseno MD Primary Care Provider Eren Cr MD Unavailable [phone] Yohana Bowen MD Unavailable Encounter Details Date Type Department Care Team (Late st Contact Info) Description 10/12/2022 Orders Only [facility] Oncology [address] [facility] [place] [address] Eren Cr MD [address] [place] [address] Hypothyroidism due to medication Social [...] on file Legal Sex Female 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 No / Unsure 09/12/2022 10:42 AM EDUCATION ASSOCIATE documented as of this encounter Ordered Prescriptions Prescription Sig Dispense Quantity Refills Last Filled Start Date End Date levothyroxine (SYNTHROID) 88 mcg tabletIndications: Hypothyroidism due to medication Take 1 tablet (88 mcg total) by mouth race steward before breakfast 90 tablet 1 10/12/2022 documented in this encounter Plan of Treatment Not on file documented as of this encounter Visit Diagnoses Diagnosis Hypothyroidism due to medication documented in this encounter Discontinued Medications Medication Sig Discontinue Reason Start Date End Da te levothyroxine (SYNTHROID) 88 mcg tabletIndications:Hypot hyroidism due to medication TAKE 1 TABLET (88 MCG TOTAL) BY MOUTH ASSISTANT FOREMAN BEFORE BREAKFAST Reorder 09/27/2022 10/12/2022 documented as of this encounter Care Teams Aircraft Painter Apprentice Relationship Specialty Start Date End Date Julio César Briseno MD PCP - General 10/01/16 Eren Cr MD Referring Physician Medical Oncology 11/25/18 Yohana Bowen MD Radiation Oncologist Radiation Oncology 11/25/18 documented as of this encounter
--- OUTSIDE RECORDS SUMMARY | 2024-06-26 02:00 | XMS_ITS | Encounter Summary ---
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) Procedures AR OCTREOTIDE INJECTION, DEPOT Octreotide 28 Day Cycles - Carcinoid Eren Cr MD [address] [place] [address] Phone: tel: fax: [address] [address] Phone: tel: fax: Referral ID Status Reason Start Date Expiration Date V isits Requested Visits Authorized [id number] Authorized 11/28/2017 02/05/2025 1 150 Encounter Details Date Type Department Care Team (Late st Contact Info) Description 10/18/2022 12:00 PM CDT Infusion [facility] Oncology [address] [place] [address] Neuroendocrine carcinoma (HCC) (Primary Dx); Malignant neoplasm [...] file 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 female who presents for the following injection: Octreotide. Additional Notes: Patient saw MD today. MD holding Whisk (formerly Zypsee)va for phos 2.0. Patient received her study [...] First Orde red Date ONCBCN NURSING COMMUNICATION [id number] 1 10/18 Appointment Requests Count Last Ordered Date Fi rst Ordered Date ONCBCN INJECTION APPOINTMENT REQUEST 1 10/06 documented in this encounter Care Teams Delivery Driver/Supervisor Relationship Specialty Start Date End Date Julio César Briseno MD PCP - General 10/01/16 Eren Cr MD Referring Physician Medical Oncology 11/25/18 Yohana Bowen MD Radiation Oncologist Radiation Oncology 11/25/18 documented as of this encounter
--- OUTSIDE RECORDS SUMMARY | 2024-06-26 02:00 | XMS_ITS | Encounter Summary ---
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 The patient is under my care, and I have authorized serviceson this plan of care and will periodically review the plan. The patient had a [id number] encounter with Eren Cr MD on 09/06/2022 and the encounter was related to the primary reason for homehealth care. documented in this encounter Plan of Treatment Not on file documented as of this encounter Visit Diagnoses Not on filedocumented in this encounter Care Teams Percolator Operator Relationship Specialty Start Date End Date Julio César Briseno MD PCP - General 10/01/16 Eren Cr MD Referring Physician Medical Oncology 11/25/18 Yohana Bowen MD Radiation Oncologist Radiation Oncology 11/25/18 documented as of this encounter
--- OUTSIDE RECORDS SUMMARY | 2024-06-26 02:00 | XMS_ITS | Encounter Summary ---
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 Gender Identity Not on file [...] Dose Rate Site 0.9 % sodium chloride ([facility] sodium chloride 0.9%) injection 10 mL, intravenous, [...] home health visit Disciplines: SN, PT, OT, MODELING MANAGER, FERRYBOAT HELPER, Skilled Disciplines Monitor patient's vital signs [...] visit during episode of care Description: Home client representative to measure vital signs during every home [...] Scheduled documented in this encounter Care Teams Senior Rd Engineer Relationship Specialty Start Date End Date Julio César Briseno MD PCP - General 10/01/16 Eren Cr MD Referring Physician Medical Oncology 11/25/18 Yohana Bowen MD Radiation Oncologist Radiation Oncology 11/25/18 documented as of this encounter
--- OUTSIDE RECORDS SUMMARY | 2024-06-26 02:00 | XMS_ITS | Encounter Summary ---
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
--- OUTSIDE RECORDS SUMMARY | 2024-06-26 02:00 | XMS_ITS | Encounter Summary ---
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 9 PRN visits for additional teaching, line care, labs or other symptom management. documented in this encounter Plan of Treatment Not on file documented as of this encounter Visit Diagnoses Not on filedocumented in this encounter Care Teams Assembly Manager Relationship Specialty Start Date End Date Julio César Briseno MD PCP - General 10/01/16 Eren Cr MD Referring Physician Medical Oncology 11/25/18 Yohana Bowen MD Radiation Oncologist Radiation Oncology 11/25/18 documented as of this encounter
--- OUTSIDE RECORDS SUMMARY | 2024-06-26 02:00 | XMS_ITS | Encounter Summary ---
Author Organization 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 Gender Identity Not on file [...] Details Visit Type -SN Home Visit Discipline -Assisted Problems Problem Description Start Date Status Goals Interventions Safety concerns Disciplines: Assisted Safety needs related to infusion administration 11/14/2022 Active - 1 problem intervention scheduled/documen omar in this visit Learning/Teachin g Needs - IV Therapy Disciplines: Assisted Teaching and learning needs for performing home IV therapy 11/14/2022 Active - 6 problem interventions scheduled/documen omar in this visit Monitor patient's vital signs every home health visit Disciplines: SN, PT, OT, TRAINING AND DEVELOPMENT 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, ANNUAL CAMPAIGN MANAGER, Skilled Disciplines Monitor patient's vital signs [...] visit during episode of care Description: Home triage clinician to measure vital signs during every [...] Scheduled documented in this encounter Care Teams Mining Engineering Technologist Relationship Specialty Start Date End Date Julio César Briseno MD PCP - General 10/01/16 Eren Cr MD Referring Physician Medical Oncology 11/25/18 Yohana Bowen MD Radiation Oncologist Radiation Oncology 11/25/18 documented as of this encounter
--- OUTSIDE RECORDS SUMMARY | 2024-06-26 02:00 | XMS_ITS | Encounter Summary ---
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 Gender Identity Not on file Sexual [...] mouth nightly 0.9 % sodium chloride ([facility] sodium chloride 0.9%) injectionIndication s:line care Infuse 10 mL into a venous catheter once a week On saturday06/20/20 24 amLODIPine (NORVASC) 5 mg tabletIndications:h ypertension Take 0.5 tablets (2.5 mg total) by mouth nightly 07/27/2022 06/11/20 23 ascorbic acid, vitamin C, 500 mg capsuleIndications: supplement Take 1 tablet by mouth adobe developer before breakfast 07/04/2016 06/20/20 24 cholecalciferol (VITAMIN D-3) 2,000 unit capsule Take 1 capsule (2,000 Units total) by mouth daily 30 capsule 2 04/25/2019 11/17/19 23 clotrimazole-betame thasone (LOTRISONE) cream Apply 1 Application topically daily as needed (rash) 06/20/20 24 coenzyme [id number] 100-5 mg-unit capsuleIndications: supplement Take 1 tablet by mouth adobe developer before breakfast 06/20/20 24 diphenoxylate-atrop ine (LOMOTIL) [...] to flush 06/20/20 24 [facility] cabozantinib/placeb o (122/[id number] 2) 20 mg tabletIndications:c ancer study Take 1 tablet (20 mg total) by mouth nightly Take on an empty stomach (no food for 2 hours before and 1 hour after each dose).?? Avoid Jas's Wort, grapefruit products and Lindsay oranges while on treatment. 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 Department [place] [address] * (ABNORMAL) eGFR (10/18/2022 10:46 AM CDT) eGFR 43(L) 90 - 130 mL/min/1. 73 m2 [facility] ORDERABLES Final Re sult Performing Organization Address [facility]/ZIP Co de Phone Number JASON [facility] Department [place] [address] * (ABNORMAL) Differential, auto (10/18/2022 10:46 AM CDT) Neutrophil abs 2.1 1.7 - 6.5 K/cumm [facility] Comment:Testing performed by : [facility], [address] [place] [address] Imm gran abs 0.0 0.0 - 0.1 K/cumm [facility] Lymphocyte abs 0.7(L) 0.8 - 3.3 K/cumm [facility] Monocyte abs 0.6 0.2 - 0.8 K/cumm [facility] Eosinophil abs 0.2 0.0 - 0.5 K/cumm [facility] Basophil abs 0.0 0.0 - 0.1 K/cumm [facility] Neutrophil pct 58.0 % [facility] Comment: Interpretive Data Percent cell count reference ranges are not reported, since discordance with absolute values may lead to misinterpretation of CBC data. Current Interpretive Data was last revised on 2017. Imm gran pct 0.8 % [facility] Comment: Interpretive Data Percent cell count reference ranges are not reported, since discordance with absolute values may lead to misinterpretation of CBC data. Current Interpretive Data was last revised on 2017. Lymphocyte pct 18.9 % [facility] Comment: Interpretive Data Percent cell count reference ranges are not reported, since discordance with absolute values may lead to misinterpretation of CBC data. Current Interpretive Data was last revised on 2017. Monocyte pct 16.9 % [facility] Comment: Interpretive Data Percent cell count reference ranges are not reported, since discordance with absolute values may lead to misinterpretation of CBC data. Current Interpretive Data was last revised on 2017. Eosinophil pct 4.8 % [facility] Comment: Interpretive Data Percent cell count reference ranges are not reported, since discordance with absolute values may lead to misinterpretation of CBC data. Current Interpretive Data was last revised on 2017. Basophil pct 0.6 % [facility] Comment: Interpretive Data Percent cell count reference ranges are not reported, since discordance with absolute values may lead to misinterpretation of CBC data. Current Interpretive Data was last revised on 2017. Blood 10/18/2022 10:4 6 AM CDT 10/18/2022 10:47 AM CDT Eren Cr MD LAB BLOOD ORDERABLES Final Re sult Performing Organization Address [facility] Co de Phone Number [facility] [place] [address] * Magnesium (10/18/2022 10:46 AM CDT) Magnesium 1.5 1.4 - 2.5 mg/dL [facility] Comment:Testing performed by : [facility], [address] [place] [address] Blood 10/18/2022 10:4 6 AM CDT 10/18/2022 10:47 AM CDT Eren Cr MD LAB BLOOD ORDERABLES Final Re sult Performing Organization Address [facility] Co de Phone Number [facility] [place] [address] * (ABNORMAL) TSH (10/18/2022 10:46 AM CDT) Thyroid Stimulating Hormone 6.01(H) 0.30 - 4.20 mcIUnit/mL [facility] Blood 10/18/2022 10:4 6 AM CDT 10/18/2022 1:02 PM CDT Eren Cr MD LAB BLOOD ORDERABLES Final Re sult Performing Organization Address [facility] [place] [address] * (ABNORMAL) PTH (10/18/2022 10:46 AM CDT) PTH 210(H) 15 - 65 pg/mL [facility] Blood 10/18/2022 10:4 6 AM CDT 10/18/2022 11:50 AM CDT us Eren Cr MD LAB BLOOD ORDERABLES Final Re sult [facility] Department [place] [address] * (ABNORMAL) Lipid panel (10/18/2022 10:46 AM [...] on 2018. Triglycerides 175(H) <=149 mg/dL [facility] [...] 2018. HDL 62 >=40 mg/dL [facility] Comment: [...] on 2018. LDL, calculated 57 <=129 mg/dL [facility] [...] on 2018. Non-HDL Cholesterol 92 mg/dL [facility] Comment: [...] on 2018. Chol/HDL ratio 2 [facility] Blood 10/18/2022 10:4 6 AM CDT 10/18/2022 1:02 PM CDT Eren Cr MD LAB BLOOD ORDERABLES Final Re sult Performing Organization Address City/[facility] Co de Phone Number [facility] Department [place] [address] * (ABNORMAL) Phosphorus (10/18/2022 10:46 AM CDT) Phosphorus, pl 2.0(L) 2.3 - 4.5 mg/dL [facility] Comment:Testing performed by : [address] [address] Blood 10/18/2022 10:4 6 AM CDT 10/18/2022 10:47 AM CDT us Eren Cr MD LAB BLOOD ORDERABLES Final Re sult [facility] Department [place] [address] * (ABNORMAL) Vitamin D 25 hydroxy (10/18/2022 10:46 AM CDT) Vitamin D 25-OH 23(L) 30 - 80 ng/mL [facility] Blood 10/18/2022 10:4 6 AM CDT 10/18/2022 1:02 PM CDT Eren Cr MD LAB BLOOD ORDERABLES Final Re sult Performing Organization Address City/State/[facility] Co de Phone Number [facility] Department [place] [address] * (ABNORMAL) CBC with auto differential (10/18/2022 10:46 AM CDT) WBC 3.5(L) 3.8 - 9.9 K/cumm [facility] Comment:Testing performed by : [address] [address] Hgb 10.3(L) 11.9 - 15.5 g/dL [facility] Comment:Testing performed by : [address] [address] Hct 31.8(L) 35.6 - 45.5 % [facility] Comment:Testing performed by : [address] [address] Plt 117(L) 150 - 400 K/cumm [facility] Comment:Testing performed by : [address] [address] MPV 10.0 9.1 - 12.3 fL [facility] RBC 3.07(L) 3.90 - 5.20 M/cumm [facility] MCV 103.6(H) 81.3 - 96.4 fL [facility] MCH 33.6(H) 27.1 - 33.3 pg [facility] MCHC 32.4 32.3 - 35.7 g/dL [facility] RDW CV 14.6 11.1 - 14.9 % [facility] RDW SD 54.6(H) 35.7 - 48.1 fL [facility] NRBC abs 0.00 0.00 - 0.01 K/cumm [facility] Blood 10/18/2022 10:4 6 AM CDT 10/18/2022 10:47 AM CDT Eren Cr MD LAB BLOOD ORDERABLES Final Re sult [facility] Department [place] [address] * (ABNORMAL) Comprehensive metabolic panel (10/18/2022 10:46 AM CDT) Sodium 140 135 - 145 mmol/L [facility] Comment:Testing performed by : [facility], [address] [place] [address] Potassium, pl 4.0 3.3 - 4.9 mmol/L [facility] Chloride 109 97 - 110 mmol/L [facility] CO2 28 22 - 32 mmol/L [facility] Anion gap 3 2 - 15 mmol/L [facility] BUN 15 8 - 25 mg/dL [facility] Creatinine 1.32(H) 0.60 - 1.10 mg/dL [facility] Glucose 99 70 - 199 mg/dL [facility] [...] 2022. Calcium 10.0 8.5 - 10.3 mg/dL [facility] Bilirubin, total 0.5 0.1 - 1.2 mg/dL [facility] Protein, pl 6.3(L) 6.5 - 8.5 g/dL [facility] Albumin 3.9 3.5 - 5.0 g/dL [facility] Alk phos 55 40 - 130 Units/L [facility] ALT 15 7 - 45 Units/L [facility] AST 26 10 - 45 Units/L [facility] Blood 10/18/2022 10:4 6 AM CDT 10/18/2022 10:47 AM CDT Eren Cr MD LAB BLOOD ORDERABLES Final Re sult Performing Organization Address City/[facility]/ZIP Co de Phone Number JASON LEAVITT [facility] Department [place] [address] * (ABNORMAL) Chromogranin A (10/18/2022 10:46 AM [...] a homogeneous time-resolved immunofluorescent assay manufactured by [employer] and performed on the [employer] Kryptor Compact Plus. ? Values obtained with different assay methods or kits may be different and cannot be used interchangeably. ? Test results cannot be interpreted as absolute evidence for the presence or absence of malignant disease. Test Performed by: [facility] [address] Garden Consultant: Immanuel Novak M.D. Ph.D.; CLIA# [id number] Blood 10/18/2022 10:4 6 AM CDT 10/18/2022 11:54 AM CDT Eren Cr MD LAB BLOOD ORDERABLES Final Re sult 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
--- OUTSIDE RECORDS SUMMARY | 2024-06-26 02:00 | XMS_ITS | Encounter Summary ---
Author Organization [facility] Address [address] [place] [address] Phone Care Team Providers Care Continuous Process Machine Operator Name Role Phone Julio César Briseno MD Primary Care Provider [phone] Eren Cr MD Unavailable [phone] Yohana Bowen MD Unavailable Reason for Visit * Episode Based Medications (Routine) - Closed Specialty Diagnoses / Procedures Referred By Evelyne bowman Referred To Contact Diagnoses Neuro-endocrine carcinoma (HCC) Procedures study [id number] phase III cabozantinib Eren Cr MD [address] [facility] [address] [place] [address] Phone: tel: fax: [facility] [address] 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 Gender Identity Not on file Sexual [...] Date First Ordered Date [id number] cabozantinib/pl acebo (/[id number]) tablet 20 mg 1 11/15/2022 Nursing Count Last Ordered Date First Orde red Date ONCBCN STUDY COMMUNICATION 2 1 11/15/2022 ONCBCN TREATMENT PARAMETERS 1 1 11/15/2022 RESEARCH STUDY CLARIFICATION ORDER 1 2022 Appointment Requests Count Last Ordered Date Fi rst Ordered Date ONCBCN TAKE HOME STUDY DRUG APPT 1 11/16/19 23 documented in this encounter Care Teams Continuous Process Machine Operator Relationship Specialty Start Date End Date Julio César Briseno MD PCP - General 10/01/16 Eren Cr MD Referring Physician Medical Oncology 11/25/18 Yohana Bowen MD Radiation Oncologist Radiation Oncology 11/25/18 documented as of this encounter
--- OUTSIDE RECORDS SUMMARY | 2024-06-26 02:00 | XMS_ITS | Encounter Summary ---
Author Organization [facility] Address [address] [place] [address] Phone Care Team Providers Care Career Placement Services Counselor Name Role Phone Julio César Briseno MD Primary Care Provider [phone] Eren Cr MD Unavailable [phone] Yohana Bowen MD Unavailable Reason for Visit * Reason Comments Fatigue Encounter Details Date Type Department Care Team (Late st Contact Info) Description 10/10/2022 1:30 PM CDT Home Care Visit [facility] [address] [place] [id number] Sherlyn Orozco RN SN HOME VISIT Social [...] on file Legal Sex Female 2:41 PM PROJECT CONTROLS SPECIALIST Gender Identity Not on file Sexual [...] Coronavirus/COVID-19? No / Unsure 09/12/2022 10:42 AM PROJECT CONTROLS SPECIALIST documented as of this encounter Last Filed [...] Body Mass Index 30.29 09/13/2022 10:55 AM PROJECT CONTROLS SPECIALIST documented in this encounter Miscellaneous Notes [...] Rate Site 0.9 % sodium chloride ([facility] sodium chloride 0.9%) injection [...] Detention Safety needs related to infusion administration 09/13/2022 [...] health visit Disciplines: SN, PT, OT, PRINCIPAL CLERK, HYPERBARIC TECHNOLOGIST, Skilled Disciplines Monitor patient's vital signs every [...] visit during episode of care Description: Home [place] guide to measure vital signs during every home [...] Scheduled documented in this encounter Care Teams Career Placement Services Counselor Relationship Specialty Start Date End Date Julio César Briseno MD PCP - General 10/01/16 Eren Cr MD Referring Physician Medical Oncology 11/25/18 Yohana Bowen MD Radiation Oncologist Radiation Oncology 11/25/18 documented as of this encounter
--- OUTSIDE RECORDS SUMMARY | 2024-06-26 02:00 | XMS_ITS | Encounter Summary ---
Author Organization [facility] Address [address] [place] [address] Phone Care Team Providers Care Gate Watch Name Role Phone Julio César Briseno MD Primary Care Provider [phone] Eren Lund MD Unavailable [phone] Yohana Bowen MD Unavailable Reason for Visit * Consultation (Routine) - Canceled Specialty Diagnoses / Procedures Referred By Evelyne bowman Referred To Contact Nephrology Diagnoses Stage 3b chronic kidney disease (HCC) Eren Lund MD [address] [facility] [address] [place] [address] Phone: tel: fax: [facility] (All Locations) Referral ID Status Reason Start Date Expiration Date Visits Requested Visits Authorized [id number] Canceled Specialty Services Required 09/06/2022 10/06/2023 1 1 Encounter Details Date Type Department Care Team (Late st Contact Info) Description 11/13/2022 1:30 PM CDT Office Visit [facility]phrology [address] [facility] 5th [place] [address] [place] [id number] Alejo Mi MD [address] [facility] [address] [place] [address] Malignant neoplasm metastatic to liver [...] on file Legal Sex Female 2:41 PM DECONTAMINATOR Gender Identity Not on file Sexual Orientation [...] Visit Medication Sig 0.9 % sodium chloride ([facility] sodium chloride 0.9%) injection Infuse 10 mL into a venous catheter once a week amLODIPine (NORVASC) 5 mg tablet TAKE 1 TABLET EVERY DAY BY ORAL ROUTE NEEDED. ascorbic acid, vitamin C, 500 mg capsule Take 1 tablet by mouth cattle shipper before breakfast cholecalciferol (VITAMIN D-3) 2,000 unit capsule Take 1 capsule (2,000 Units total) by mouth daily clotrimazole-betamethasone (LOTRISONE) cream clotrimazole-betamethasone 1 %-0.05 % topical cream APPLY EXTERNALLY TO ABDOMEN TWICE DAILY NEEDED coenzyme [id number] 100-5 mg-unit capsule Take by mouth cattle shipper before breakfast denosumab (Xgeva) 120 mg/1.7 mL [...] into a venous catheter once a week [facility] cabozantinib/placebo (/[id number]) 20 mg tablet Take 1 tablet (20 mg total) bymouth daily Take on an empty stomach (no food for 2 hours before and 1 hour after each dose). AvoidSt. Mj's Wort, grapefruit products and [place] oranges while on treatment. placed on hold 09/26/22for ascencion levothyroxine (SYNTHROID) 88 mcg tablet Take 1 tablet (88 mcg total) by mouth cattle shipper before breakfast lidocaine-prilocaine (lidocaine-prilocaine) cream Apply topically [...] per tablet Take 0.5 tablets by mouth cattle shipper before breakfast decrease dosage to 0.5 tablet [...] venous catheter once a week Patient to [id number] of Normal Saline via CADD Coreas pump [...] BS normal. No masses SKIN: No rash ICU CLERK: Alert Ox3. No focal motor deficits PSYCH: Pleasant, cooperative, appropriate affect. MSK: No joint swelling or tenderness LABORATORY DATA Sodium Date Value Ref Range Status 10/18/2022 140 135 - 145 mmol/L Final Comment: Testing performed by: [facility], [address] [place] [address] 09/06/2022 139 135 - 145 mmol/L Final Comment: Testing performed by: [facility], [address] [place] [address] 08/07/2022 141 135 - 145 mmol/L Final Comment: Testing performed by: [facility], [address] [place] [address] Potassium, pl Date Value Ref Range Status [...] Final Comment: Testing performed by: [facility], [address] [place] [address] 09/06/2022 2.5 2.3 - 4.5 mg/dL Final Comment: Testing performed by: [facility], [address] [place] [address] 08/07/2022 2.0 (L) 2.3 - 4.5 mg/dL Final Comment: Testing performed by: [facility], [address] [place] [address] PTH Date Value Ref Range Status 10/18/2022 [...] Final Comment: Testing performed by: [facility], [address] [place] [address] 09/06/2022 11.3 (L) 11.9 - 15.5 g/dL Final Comment: Testing performed by: [address] [address] 08/07/2022 11.9 11.9 - 15.5 g/dL Final Comment: Testing performed by: [address] [address] Iron Date Value Ref Range Status 11/04/2015 [...] results best viewed via link to PDF [facility] [address] [facility], [address], [place] [address] [email or web address] REPORT Patient Information: PATIENT NAME: LA CHUNG SEX: F : [id number] (Age: 69) Specimen Information: COLLECTED: 05/06/2020 RECEIVED: 05/09/2020 REPORTED: 05/10/2020 Submitting Physician Information: Po Newberry M.D. [address], [address] [place] [address], DERMATOPATHOLOGY REPORT RESULTS DIAGNOSIS: A. SKIN, RIGHT [...] in-situ hybridization tests were determined by the [facility] in ongoing senior quality assurance specialist and in compliance with regulations drawn from the Clinical Laboratory Improvement Act of 1988 (CLIA '88). These tests may rely on the use of analyte specific reagents that are subject to specific labeling requirements by the [place] FDA, and may only be performed in a facility that is certified by the [facility] as a high-complexity laboratory under CLIA '88. 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
--- OUTSIDE RECORDS SUMMARY | 2024-06-26 02:00 | XMS_ITS | Encounter Summary ---
Author Organization [facility] Home Care Servic es Address [address] [place] [address] Phone Care Team Providers Care Chair Inspector And Leveler Name Role Phone Julio César Briseno MD Primary Care Provider [phone] Eren Cr MD Unavailable [phone] Yohana Bowen MD Unavailable Reason for Visit * Reason Comments Dehydration Encounter Details Date Type Department Care Team (Late st Contact Info) Description 10/31/2022 11:00 AM CDT Home Care Visit [facility] [address] [place] [id number] Sherlyn Orozco RN SN HOME VISIT Social [...] file Legal Sex Female 2:41 PM INTERNATIONAL FREIGHT FORWARDER Gender Identity Not on file Sexual Orientation [...] Body Mass Index 31 09/13/2022 10:55 AM INTERNATIONAL FREIGHT FORWARDER documented in this encounter Miscellaneous Notes * [...] Dose Rate Site 0.9 % sodium chloride ([facility] sodium chloride 0.9%) injection 10 [...] Home Safety needs related to infusion administration 09/13/2022 [...] home health visit Disciplines: SN, PT, OT, TECHNICAL AID, POLL WATCHER, Skilled Disciplines Monitor patient's vital signs every [...] visit during episode of care Description: Home removable prosthodontist to measure vital signs during every home [...] Scheduled documented in this encounter Care Teams Chair Inspector And Leveler Relationship Specialty Start Date End Date Julio César Briseno MD PCP - General 10/01/16 Eren Cr MD Referring Physician Medical Oncology 11/25/18 Yohana Bowen MD Radiation Oncologist Radiation Oncology 11/25/18 documented as of this encounter
--- OUTSIDE RECORDS SUMMARY | 2024-06-26 02:00 | XMS_ITS | Encounter Summary ---
Author Organization [facility] Home Care Servic es Address [address] [place] [address] Phone Care Team Providers Care Signal Fitter Name Role Phone Julio César Briseno MD Primary Care Provider [phone] Eren Cr MD Unavailable [phone] Yohana Bowen MD Unavailable Reason for Visit * Reason Comments Chronic Fatigue Encounter Details Date Type Department Care Team (Late st Contact Info) Description 11/21/2022 2:30 PM CDT Home Care Visit [facility] [address] [address] [address] [place] [address] Sherlyn Orozco RN SN HOME VISIT Social [...] file Legal Sex Female 2:41 PM CITY DISPATCH SUPERVISOR Gender Identity Not on file Sexual [...] home health visit Disciplines: SN, PT, OT, AUTOMATIC DRILLING MACHINE OPERATOR, SALT LIFTER, Skilled Disciplines Monitor patient's vital signs every [...] visit during episode of care Description: Home certified nurse operating room to measure vital signs during every home [...] Therapy Completed pt verb good understanding of anesthesiology medical doctor per cadd pump Dressing change Description: Skilled [...] documented in this encounter Care Teams Signal Fitter Relationship Specialty Start Date End Date Julio César Briseno MD PCP - General 10/01/16 Eren Cr MD Referring Physician Medical Oncology 11/25/18 Yohana Bowen MD Radiation Oncologist Radiation Oncology 11/25/18 documented as of this encounter
--- OUTSIDE RECORDS SUMMARY | 2024-06-26 02:00 | XMS_ITS | Encounter Summary ---
Author Organization [facility] [facility] Address [address] [place] [address] Phone Care Team Providers Care Bell Maker Name Role Phone Julio César Briseno MD Primary Care Provider [phone] Eren Cr MD Unavailable [phone] Yohana Bowen MD Unavailable Encounter Details Date Type Department Care Team (Late st Contact Info) Description 11/16/2022 Orders Only [facility] Nephrology [address] [facility] 5th [place] [address] [place] [address] Alejo Mi MD [facility] [address] [place] [address] Social History Tobacco Use Types [...] on file Legal Sex Female 2:41 PM SHIP FASTENER Gender Identity Not on file Sexual Orientation [...] documented as of this encounter Care Teams Bell Maker Relationship Specialty Start Date End Date Julio César Briseno MD PCP - General 10/01/16 Eren Cr MD Referring Physician Medical Oncology 11/25/18 Yohana Bowen MD Radiation Oncologist Radiation Oncology 11/25/18 documented as of this encounter
--- OUTSIDE RECORDS SUMMARY | 2024-06-26 02:00 | XMS_ITS | Encounter Summary ---
Author Organization [facility] [facility] Address [address] [place] [address] Phone Care Team Providers Care Staffing Mgr Name Role Phone Julio César Briseno MD Primary Care Provider [phone] Eren Cr MD Unavailable [phone] Yohana Bowen MD Unavailable Reason for Visit * Reason Comments Hearing Loss Pt is referred by Dr Clark Baum for right TM perforation Encounter Details Date Type Department Care Team (Late st Contact Info) Description 10/30/2022 10:15 AM CDT Office Visit [facility] Otolaryngology 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 ascorbic acid, vitamin C, 500 mg capsule Take 1 tablet by mouth energy auditor before breakfast cholecalciferol (VITAMIN D-3) 2,000 unit capsule Take 1 capsule (2,000 Units total) by mouth daily 30 capsule 2 clotrimazole-betamethasone (LOTRISONE) cream clotrimazole-betamethasone 1 %-0.05 % topical cream APPLY EXTERNALLY TO ABDOMEN TWICE DAILY NEEDED coenzyme [id number] 100-5 mg-unit capsule Take by mouth energy auditor before breakfast denosumab (Xgeva) 120 mg/1.7 mL [...] into a venous catheter once a week [facility], [facility] cabozantinib/placebo (/[id number]) 20 mg tablet Take 1 tablet (20 mg total) bymouth daily Take on an empty stomach (no food for 2 hours before and 1 hour after each dose). AvoidSt. Mj's Wort, grapefruit products and [place] oranges while on treatment. placed on hold 09/26/22for covid levothyroxine (SYNTHROID) 88 mcg tablet Take 1 tablet (88 mcg total) by mouth energy auditor before breakfast 90 tablet 1 lidocaine-prilocaine (lidocaine-prilocaine) [...] per tablet Take 0.5 tablets by mouth energy auditor before breakfast decrease dosage to 0.5 tablet [...] venous catheter once a week Patient to [id number] of Normal Saline via CADD Coreas pump [...] Cell Culture-based MDCK, Preservative Free, Antibiotic Free, Smtwsvkqwhqbe74/15/2018 Influenza, Quadrivalent, High Dose, Preservative Free, Intrr [...] in the near future. Nasim Rojas M.D. 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
--- OUTSIDE RECORDS SUMMARY | 2024-06-26 02:00 | XMS_ITS | Encounter Summary ---
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
--- OUTSIDE RECORDS SUMMARY | 2024-06-26 02:00 | XMS_ITS | Encounter Summary ---
Author Organization [facility] Home Care Servic es Address [address] [place] [address] Phone Care Team Providers Care Metal Smelter Name Role Phone Julio César Briseno MD Primary Care Provider [phone] Eren Cr MD Unavailable [phone] Yohana Bowen MD Unavailable Reason for Visit * Reason Comments Chronic Fatigue Encounter Details Date Type Department Care Team (Latest Contact Info) Description 11/14/2022 10:30 AM CDT Home Care Visit [facility] [address] [address] [address] [place] [id number] Sherlyn Orozco RN SN NON OASIS START [...] file 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 Gender Identity Not on file Sexual [...] -SN Non-OASIS Sta rt of Care Discipline -Penitentiary Problems Problem Description Start Date [...] home health visit Disciplines: SN, PT, OT, SLITTER CREASER SLOTTER HELPER, BOOK JOGGER, Skilled Disciplines Monitor patient's vital signs every [...] visit during episode of care Description: Home knife finisher to measure vital signs during every home [...] Scheduled documented in this encounter Care Teams Metal Smelter Relationship Specialty Start Date End Date Julio César Briseno MD PCP - General 10/01/16 Eren Cr MD Referring Physician Medical Oncology 11/25/18 Yohana Bowen MD Radiation Oncologist Radiation Oncology 11/25/18 documented as of this encounter
--- OUTSIDE RECORDS SUMMARY | 2024-06-26 02:00 | XMS_ITS | Encounter Summary ---
Author Organization 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
--- OUTSIDE RECORDS SUMMARY | 2024-06-26 02:00 | XMS_ITS | Encounter Summary ---
Author Organization [facility] Address [address] [place] [address] Phone Care Team Providers Care Calender Let Off Operator Name Role Phone Julio César Briseno MD Primary Care Provider Eren Cr MD Unavailable [phone] Yohana Bowen MD Unavailable Encounter Details Date Type Department Care Team (Late st Contact Info) Description 10/18/2022 Orders Only [facility] Oncology [address] [place] [address] Eren rC MD [address] [place] [address] Malignant neoplasm metastatic to liver [...] on file Legal Sex Female 2: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
--- OUTSIDE RECORDS SUMMARY | 2024-06-26 02:00 | XMS_ITS | Encounter Summary ---
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) Procedures IN OCTREOTIDE INJECTION, DEPOT Octreotide 28 Day Cycles - Carcinoid Eren Cr MD [address] [place] [address] Phone: tel: fax: [address] [address] Phone: tel: fax: Referral ID Status Reason Start Date Expiration Date V isits Requested Visits Authorized [id number] Authorized 11/28/2017 02/05/2025 1 150 Encounter Details Date Type Department Care Team (Late st Contact Info) Description 11/15/2022 3:00 PM CDT Infusion [facility] Oncology [address] [place] [address] Neuroendocrine carcinoma (CMS/HCC) (HCC) (Primary Dx); Malignant [...] on file Legal 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 Female 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 HELPER Gender Identity Not on file Sexual [...] 11/15/2022 3:00 PM CDT Oncology Nursing Note [facility] ON[facility] La Chung is a 72 [...] First Orde red Date ONCBCN NURSING COMMUNICATION [id number] 1 11/15 ONCBCN NURSING COMMUNICATION [id number] 1 0 11/15/2022 PHYSICIAN COMMUNICATION ORDER 1 11/15/2022 Appointment Requests Count Last Ordered Date Fi rst Ordered Date ONCBCN INJECTION APPOINTMENT REQUEST 1 11/05 documented in this encounter Care Teams Medicine Aide Relationship Specialty Start Date End Date Julio César Briseno MD PCP - General 10/01/16 Eren Cr MD Referring Physician Medical Oncology 11/25/18 Yohana Bowen MD Radiation Oncologist Radiation Oncology 11/25/18 documented as of this encounter
--- OUTSIDE RECORDS SUMMARY | 2024-06-26 02:00 | XMS_ITS | Encounter Summary ---
Author Organization [facility] Home Care Servic es Address [address] [place] [address] Phone Care Team Providers Care Lead Cargo Mover Name Role Phone Julio César Briseno MD Primary Care Provider [phone] Eren Cr MD Unavailable [phone] Yohana Bowen MD Unavailable Reason for Visit * Reason Comments Cough Encounter Details Date Type Department Care Team (Late st Contact Info) Description 10/04/2022 11:00 AM CDT Home Care Visit [facility] [address] [place] [phone] Sherlyn Orozco RN SN HOME VISIT Social [...] file Legal Sex Female 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 RELIABILITY Gender Identity Not on file Sexual Orientation Straight 02/19/2021 9: 29 AM CDT Occupation Industry Job Start Date Job End Date retired Not on file Not on file Not on file COVID-19 Exposure Response Date Recorded In the last 10 days, have gus engel been in contact with someone who was confirmed or suspected to have Coronavirus/COVID-19? No / Unsure 09/12/2022 10:42 AM MANAGER RELIABILITY documented as of this encounter Last Filed [...] home health visit Disciplines: SN, PT, OT, ENROBING MACHINE CORDER, TUTORING ASSISTANT, Skilled Disciplines Monitor patient's vital signs [...] Scheduled documented in this encounter Care Teams Lead Cargo Mover Relationship Specialty Start Date End Date Julio César Briseno MD PCP - General 10/01/16 Eren Cr MD Referring Physician Medical Oncology 11/25/18 Yohana oBwen MD Radiation Oncologist Radiation Oncology 11/25/18 documented as of this encounter
--- OUTSIDE RECORDS SUMMARY | 2024-06-26 02:00 | XMS_ITS | Encounter Summary ---
Author Organization [facility] Address [address] [place] [address] Phone Care Team Providers Care Prosthetic Aides Teacher Name Role Phone Julio César Briseno MD Primary Care Provider [phone] Eren Cr MD Unavailable [phone] Yohana Bowen MD Unavailable Reason for Visit * Episode Based Medications (Routine) - Closed Specialty Diagnoses / Procedures Referred By Evelyne bowman Referred To Contact Diagnoses Neuro-endocrine carcinoma (HCC) Procedures study [id number] phase III cabozantinib Eren Cr MD [address] [facility] [address] [place] [address] Phone: tel: fax: [facility] [address] [facility] Advanced Medicine 7th [place] [address] Phone: tel: Referral ID Status Reason Start Date Expiration Date Visits Re quested Visits Authorized [id number] Closed 06/21/2021 06/26/2024 1 99 Encounter Details Date Type Department Care Team (Late st Contact Info) Description 10/18/2022 11:15 AM CDT Office Visit [facility] Oncology [address] [place] [address] Eren Cr MD [address] [facility] [address] [place] [address] 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 NEURO: A&Ox4, sap business analyst grossly intact by conversation, moving all extremities [...] PM CDT) Protein, ur, quant 7.0 mg/dL [facility] Comment: Interpretive Data No reference range established. Current interpretive data was last revised 2018. Creatinine Ur 107.1 mg/dL [facility] Comment: Interpretive Data No reference range established. Current interpretive data was last revised 2018. Protein/creatinin e ratio 65.4 0.0 - 180.0 mg/g CR [facility] Urine 11/15/2022 3:45 PM CDT 11/15/2022 6:33 PM CDT us Eren Cr MD LAB URINE ORDERABLES Final Re sult [facility] Department [place] [address] * (ABNORMAL) Magnesium (11/15/2022 1:30 PM CDT) Magnesium 1.3(L) 1.4 - 2.5 mg/dL [facility] Comment:Testing performed by : [facility], [address] [place] [address] Blood 11/15/2022 1:30 PM CDT 11/15/2022 1:32 PM CDT us Eren Cr MD LAB BLOOD ORDERABLES Final Re sult [facility] [place] [address] * (ABNORMAL) Chromogranin A (11/15/2022 1:30 PM CDT) Chromogranin A 1170(H) <93 ng/mL [facility] Comment: Impaired renal or hepatic function or treatment with proton pump inhibitors may result in artifactual elevations of Chromogranin A. ADDITIONAL INFORMATION This test was developed and its performance characteristics determined by [facility] in a manner consistent with CLIA [...] a homogeneous time-resolved immunofluorescent assay manufactured by [employer] and performed on the Polar [employer] Compact Plus. ? Values obtained with different assay methods or kits may be different and cannot be used interchangeably. ? Test results cannot be interpreted as absolute evidence for the presence or absence of malignant disease. Test Performed by: [facility] [address] [place] [address] Resin Coater: Immanuel Novak M.D. Ph.D.; CLIA# [id number] Blood 11/15/2022 1:30 PM CDT 11/15/2022 4:30 PM CDT Eren Cr MD LAB BLOOD ORDERABLES Final Re sult [facility] [place] [address] * (ABNORMAL) Comprehensive metabolic panel (11/15/2022 1:30 PM CDT) Sodium 136 135 - 145 mmol/L [facility] Comment:Testing performed by : [facility], [address] [place] [address] Potassium, pl 3.7 3.3 - 4.9 mmol/L [facility] Chloride 104 97 - 110 mmol/L [facility] CO2 26 22 - 32 mmol/L [facility] Anion gap 6 2 - 15 mmol/L [facility] BUN 19 8 - 25 mg/dL [facility] Creatinine 1.20(H) 0.60 - 1.10 mg/dL [facility] Glucose 110 70 - 199 mg/dL [facility] [...] 2022. Calcium 10.1 8.5 - 10.3 mg/dL [facility] Bilirubin, total 0.5 0.1 - 1.2 mg/dL [facility] Protein, pl 6.6 6.5 - 8.5 g/dL [facility] Albumin 4.0 3.5 - 5.0 g/dL [facility] Alk phos 65 40 - 130 Units/L [facility] ALT 22 7 - 45 Units/L [facility] AST 33 10 - 45 Units/L [facility] Blood 11/15/2022 1:30 PM CDT 11/15/2022 1:32 PM CDT Eren Cr MD LAB BLOOD ORDERABLES Final Re sult [facility] [place] [address] * (ABNORMAL) CBC with auto differential (11/15/2022 1:30 PM CDT) WBC 3.5(L) 3.8 - 9.9 K/cumm [facility] Comment:Testing performed by : [address] [address] Hgb 10.7(L) 11.9 - 15.5 g/dL [facility] Comment:Testing performed by : [address] [address] Hct 32.4(L) 35.6 - 45.5 % [facility] Comment:Testing performed by : [address] [address] Plt 98(L) 150 - 400 K/cumm [facility] Comment:Testing performed by : [address] [address] MPV 10.1 9.1 - 12.3 fL [facility] RBC 3.27(L) 3.90 - 5.20 M/cumm [facility] MCV 99.1(H) 81.3 - 96.4 fL [facility] MCH 32.7 27.1 - 33.3 pg [facility] MCHC 33.0 32.3 - 35.7 g/dL [facility] RDW CV 13.7 11.1 - 14.9 % [facility] RDW SD 49.5(H) 35.7 - 48.1 fL [facility] NRBC abs 0.00 0.00 - 0.01 K/cumm [facility] Blood 11/15/2022 1:30 PM CDT 11/15/2022 1:32 PM CDT Eren Cr MD LAB BLOOD ORDERABLES Final Re sult [facility] [place] [address] * Vitamin D 25 hydroxy (11/15/2022 1:30 PM CDT) [facility] Vitamin D 25-OH 32 30 - 80 ng/mL [facility] Blood 11/15/2022 1:30 PM CDT 11/15/2022 3:33 PM CDT Eren Cr MD LAB BLOOD ORDERABLES Final Re sult Performing Organization Address [facility] Co de Phone Number [facility] [place] [address] * Phosphorus (11/15/2022 1:30 PM CDT) [facility] Phosphorus, pl 2.5 2.3 - 4.5 mg/dL [facility] Comment:Testing performed by : [facility], [address] [place] [address] Blood 11/15/2022 1:30 PM CDT 11/15/2022 1:32 PM CDT Eren Cr MD LAB BLOOD ORDERABLES Final Re sult Performing Organization Address City/[facility]/ZIP Co de Phone Number [facility] [place] [address] * (ABNORMAL) Lipid panel (11/15/2022 1:30 PM CDT) [facility] Cholesterol 161 30 - 199 mg/dL [facility] [...] revised on 2018. Triglycerides 286(H) <=149 mg/dL [facility] Comment: Interpretive [...] revised on 2018. HDL 54 >=40 mg/dL [facility] Comment: Interpretive Data Ages [...] on 2018. LDL, calculated 50 <=129 mg/dL [facility] Comment: Interpretive [...] revised on 2018. Non-HDL Cholesterol 107 mg/dL [facility] Comment: Interpretive Data [...] last revised on 2018. Chol/HDL ratio 3 [facility] Blood 11/15/2022 1:30 PM CDT 11/15/2022 3:33 PM CDT Eren Cr MD LAB BLOOD ORDERABLES Final Re sult [facility] [place] [address] documented in this encounter Visit Diagnoses Diagnosis [...] 23 documented in this encounter Care Teams Prosthetic Aides Teacher Relationship Specialty Start Date End Date Julio César Briseno MD PCP - General 10/01/16 Eren Cr MD Referring Physician Medical Oncology 11/25/18 Yohana Bowen MD Radiation Oncologist Radiation Oncology 11/25/18 documented as of this encounter
--- OUTSIDE RECORDS SUMMARY | 2024-06-26 02:01 | XMS_ITS | Encounter Summary ---
Author Organization [facility] Address [address] [place] [address] Phone Care Team Providers Care Basket Grader Name Role Phone Julio César Briseno MD Primary Care Provider [phone] Eren Cr MD Unavailable [phone] Yohana Bowen MD Unavailable Encounter Details Date Type Department Care Team (Late st Contact Info) Description 09/27/2022 Orders Only [facility] Oncology [address] [facility] Advanced Medicine 7th [place] [address] [place] [address] Eren Cr MD [address] [facility] [address] [place] [address] Neuro-endocrine carcinoma (CMS/HCC) (HCC) (Primary Dx) Social [...] on file Legal Sex Female 2:41 PM LOANS CONSULTANT Gender Identity Not on file Sexual [...] Coronavirus/COVID-19? No / Unsure 09/12/2022 10:42 AM LOANS CONSULTANT documented as of this encounter Plan of Treatment Not on file documented as of this encounter Results * (ABNORMAL) TSH (10/18/2022 10:46 AM CDT) Thyroid Stimulating Hormone 6.01(H) 0.30 - 4.20 mcIUnit/mL [facility] Blood 10/18/2022 10:4 6 AM CDT 10/18/2022 1:02 PM CDT Eren Cr MD LAB BLOOD ORDERABLES Final Re sult Performing Organization Address [facility] de Phone Number [facility] Department [place] [address] * Magnesium (10/18/2022 10:46 AM CDT) Magnesium 1.5 1.4 - 2.5 mg/dL [facility] Comment:Testing performed by : [facility], [address] [place] [address] Blood 10/18/2022 10:4 6 AM CDT 10/18/2022 10:47 AM CDT Eren Cr MD LAB BLOOD ORDERABLES Final Re sult Performing Organization Address City/[facility]/ZIP Co de Phone Number [facility] Department [place] [address] documented in this encounter Visit Diagnoses Diagnosis Neuro-endocrine carcinoma (HCC)- Primary Other malignant neoplasm of unspecified site documented in this encounter Orders Appointment Requests Count Last Ordered Date Fi rst Ordered Date ONCBCN CLINIC APPOINTMENT REQUEST 1 023 ONCBCN LAB APPOINTMENT 1 10/18/2022 ONCBCN TAKE HOME STUDY DRUG APPT 1 10/19/19 23 documented in this encounter Care Teams Basket Grader Relationship Specialty Start Date End Date Julio César Briseno MD PCP - General 10/01/16 Eren Cr MD Referring Physician Medical Oncology 11/25/18 Yohana Bowen MD Radiation Oncologist Radiation Oncology 11/25/18 documented as of this encounter
--- OUTSIDE RECORDS SUMMARY | 2024-06-26 02:01 | XMS_ITS | Encounter Summary ---
Author Organization [facility] Address [address] [place] [address] Phone Care Team Providers Care Golf Course Mechanic Name Role Phone Julio César Briseno MD Primary Care Provider [phone] Eren Cr MD Unavailable [phone] Yohana Bowen MD Unavailable Reason for Visit * Reason Comments Dehydration Encounter Details Date Type Department Care Team (Late st Contact Info) Description 09/14/2022 12:30 PM ELECTRONIC WARFARE OFFICER Home Care Visit [facility] [address] [place] [id number] Sherlyn Orozco RN SN HOME VISIT Social [...] file Legal Sex Female 2:41 PM ELECTRONIC WARFARE OFFICER Gender Identity Not on file Sexual [...] Coronavirus/COVID-19? No / Unsure 09/12/2022 10:42 AM ELECTRONIC WARFARE OFFICER documented as of this encounter Last Filed Vital Signs Vital Sign Reading Time Taken Comments Blood Pressure 142/82 09/14/2022 3:17 PM ELECTRONIC WARFARE OFFICER Pulse 69 09/14/2022 3:17 PM ELECTRONIC WARFARE OFFICER Temperature 35.9 ??C (96.6 ??F) 09/14/2022 3:17 PM CS T Respiratory Rate 17 09/14/2022 3:17 PM ELECTRONIC WARFARE OFFICER Oxygen Saturation 98% 09/14/2022 3:17 PM ELECTRONIC WARFARE OFFICER Inhaled Oxygen Concentration - - Weight - [...] Dose Rate Site 0.9 % sodium chloride ([facility] sodium chloride 0.9%) injection 10 mL, intravenous, Weekly, First dose on Sat09/17/22 at 1515, Indications: line careIndications:line care Given 09/14/2022 2:00 PM ELECTRONIC WARFARE OFFICER 10 mL heparin 100 unit/mL solution 5 mL, intravenous, Weekly, First dose on Sat09/17/22 at 1515, Indications: Maintain Patency of Indwelling Vascular CatheterIndications:Maintain Patency of Indwelling Vascular Catheter Given 09/14/2022 2:00 PM ELECTRONIC WARFARE OFFICER 5 mL sodium chloride 0.9 % solution 1,000 mL, intravenous, Weekly, First dose on Sat09/17/22 at 1515, Patient to infuse 1000mL of Normal Saline via CADD Coreas pump set at 300mL/Hr once weekly. Given 09/14/2022 2:00 PM ELECTRONIC WARFARE OFFICER 1,000 mL documented in this encounter Home [...] home health visit Disciplines: SN, PT, OT, WAFER FAB TECHNICIAN, COLD MEAT COOK, Skilled Disciplines Monitor patient's vital signs every [...] visit during episode of care Description: Home primary clinician to measure vital signs during every [...] Scheduled documented in this encounter Care Teams Golf Course Mechanic Relationship Specialty Start Date End Date Julio César Briseno MD PCP - General 10/01/16 Eren Cr MD Referring Physician Medical Oncology 11/25/18 Yohana Bowen MD Radiation Oncologist Radiation Oncology 11/25/18 documented as of this encounter
--- OUTSIDE RECORDS SUMMARY | 2024-06-26 02:01 | XMS_ITS | Encounter Summary ---
Author Organization [facility] Healthcare Address [address] [place] [address] Care Team Providers Care Metal Furnace Operator Name Role Phone Julio César Briseno MD Primary Care Provider [phone] Eren Cr MD Unavailable [phone] Yohana Bowen MD Unavailable Encounter Details Date Type Department Care Team (Latest Contact Info) Description 09/13/2022 1:23 PM CONSERVATION ASSISTANT - 09/13/2022 11:59 PM CONSERVATION ASSISTANT Hospital Encounter [address] [address] Discharge Disposition: Discharge to home or self [...] on file Legal Sex Female 2:41 PM CONSERVATION ASSISTANT Gender Identity Not on file Sexual [...] Coronavirus/COVID-19? No / Unsure 09/12/2022 10:42 AM CONSERVATION ASSISTANT documented as of this encounter Medications at [...] by mouth nightly 0.9 % sodium chloride ([facility] sodium chloride 0.9%) injectionIndicat ions:line care Infuse 10 mL into a venous catheter once a week On saturday 4 amLODIPine (NORVASC) 5 mg tabletIndication s:hypertension Take 0.5 tablets (2.5 mg total) by mouth nightly 07/27/2022 3 ascorbic acid, vitamin C, 500 mg capsuleIndicatio ns:supplement Take 1 tablet by mouth j2ee consultant before breakfast 07/04/2016 4 cholecalciferol (VITAMIN D-3) 2,000 unit capsule Take 1 capsule (2,000 Units total) by mouth daily 30 capsule 2 04/25/2019 3 clotrimazole-bet amethasone (LOTRISONE) cream Apply 1 Application topically daily as needed (rash) 4 coenzyme I49-vuclhgo E 100-5 mg-unit capsuleIndicatio ns:supplement Take 1 tablet by mouth j2ee consultant before breakfast 4 diphenoxylate-at ropine (LOMOTIL) 2.5-0.025 [...] and 1 hour after each dose).?? Avoid [place]'s Wort, grapefruit products and Omega oranges while on treatment. placed on hold 09/26/22 for covid 01/29/2022 4 levothyroxine (SYNTHROID) 88 mcg tabletIndication s:Hypothyroidism due to medication TAKE 1 TABLET (88 MCG TOTAL) BY MOUTH CARE ASST BEFORE BREAKFAST 30 tablet 1 09/03/2022 3 [...] filedocumented in this encounter Care Teams Metal Furnace Operator Relationship Specialty Start Date End Date Julio César Briseno MD PCP - General 10/01/16 Eren Cr MD Referring Physician Medical Oncology 11/25/18 Yohana Bowen MD Radiation Oncologist Radiation Oncology 11/25/18 documented as of this encounter
--- OUTSIDE RECORDS SUMMARY | 2024-06-26 02:01 | XMS_ITS | Encounter Summary ---
Author Organization [facility] Home Care Servic es [place] [address] Phone Care Team Providers Care Services Executive Name Role Phone Julio César Briseno MD Primary Care Provider [phone] Eren Cr MD Unavailable [phone] Yohana Bowen MD Unavailable Encounter Details Date Type Department Care Team (Latest Contact Info) Description 09/13/2022 9:00 AM USED CAR SALES SUPERVISOR Home Care Visit [facility] [address] [place] [address] Mj Lima, [place] SN OASIS [...] on file Legal Sex Female 2:41 PM USED CAR SALES SUPERVISOR Gender Identity Not on file Sexual [...] Coronavirus/COVID-19? No / Unsure 09/12/2022 10:42 AM USED CAR SALES SUPERVISOR documented as of this encounter Last Filed Vital Signs Vital Sign Reading Time Taken Comments Blood Pressure 126/56 09/13/2022 10:55 AM USED CAR SALES SUPERVISOR Pulse 90 09/13/2022 10:55 AM USED CAR SALES SUPERVISOR Temperature 36.6 ??C (97.8 ??F) 09/13/2022 10:[address] Respiratory Rate 16 09/13/2022 10:55 AM USED CAR SALES SUPERVISOR Oxygen Saturation 99% 09/13/2022 10:55 AM USED CAR SALES SUPERVISOR Inhaled Oxygen Concentration - - Weight 77.1 kg (170 lb) 09/13/2022 10:55 AM USED CAR SALES SUPERVISOR Height 160 cm (5' 3 ) 09/13/2022 10:55 AM USED CAR SALES SUPERVISOR Body Mass Index 30.11 09/13/2022 10:55 AM USED CAR SALES SUPERVISOR documented in this encounter Miscellaneous Notes * [...] Dose Rate Site 0.9 % sodium chloride ([facility] sodium chloride 0.9%) injection 10 mL, intravenous, Weekly, First dose on Lydia 09/13/22 at 1515, Indications: line careIndications:line care Given 09/13/2022 2:41 PM USED CAR SALES SUPERVISOR 10 mL heparin 100 unit/mL solution 5 mL, intravenous, Weekly, First dose on Lydia 09/13/22 at 1515, Indications: Maintain Patency of Indwelling Vascular CatheterIndications:Maintain Patency of Indwelling Vascular Catheter Given 09/13/2022 2:40 PM USED CAR SALES SUPERVISOR 5 mL documented in this encounter Home Health Visit - Care Plan Visit Details Visit Type -SN OASIS Start o f Care Discipline -Assisted Problems Problem Description Start Date Status Goals Interventions Safety concerns Disciplines: Assisted Safety needs related to infusion administration 09/13/2022 [...] home health visit Disciplines: SN, PT, OT, INSULATION BLANKET MAKER, PUBLIC RELATIONS ACCOUNT EXECUTIVE, Skilled Disciplines Monitor patient's vital signs every [...] flush procedure using aseptic technique as per [facility] Infusion policy. Instruct on IV supplies Description: [...] Scheduled documented in this encounter Care Teams Services Executive Relationship Specialty Start Date End Date Julio César Briseno MD PCP - General 10/01/16 Eren Cr MD Referring Physician Medical Oncology 11/25/18 Yohana Bowen MD Radiation Oncologist Radiation Oncology 11/25/18 documented as of this encounter
--- OUTSIDE RECORDS SUMMARY | 2024-06-26 02:01 | XMS_ITS | Encounter Summary ---
Author Organization [facility] Home Care Servic es Address [address] [place] [address] Phone Care Team Providers Care Autotransfusionist Name Role Phone Julio César Briseno MD Primary Care Provider [phone] Eren Cr MD Unavailable [phone] Yohana Bowen MD Unavailable Encounter Details Date Type Department Care Team (Late st Contact Info) Description 09/14/2022 Orders Only [facility] Scheduling [address] [place] [address] Jose Ayers, Dylan Social History Tobacco Use [...] file Legal Sex Female 2:41 PM HEEL LINING PASTER Gender Identity Not on file Sexual Orientation Straight 02/19/2021 9: 29 AM CDT Occupation Industry Job Start Date Job End Date retired Not on file Not on file Not on file COVID-19 Exposure Response Date Recorded In the last 10 days, have yo u been in contact with someone who was confirmed or suspected to have Coronavirus/COVID-19? No / Unsure 09/12/2022 10:42 AM HEEL LINING PASTER documented as of this encounter Plan of [...] 4 added in this encounter Care Teams Autotransfusionist Relationship Specialty Start Date End Date Julio César Briseno MD PCP - General 10/01/16 Eren Cr MD Referring Physician Medical Oncology 11/25/18 Yohana Bowen MD Radiation Oncologist Radiation Oncology 11/25/18 documented as of this encounter
--- OUTSIDE RECORDS SUMMARY | 2024-06-26 02:01 | XMS_ITS | Encounter Summary ---
Author Organization [facility] Address [address] [place] [address] Phone Care Team Providers Care Acls Nurse Name Role Phone Julio César Briseno MD Primary Care Provider [phone] Eren Cr MD Unavailable [phone] Yohana Bowen MD Unavailable Encounter Details Date Type Department Care Team (Late st Contact Info) Description 09/12/2022 Orders Only [facility] [address] [place] [address] Eren Cr MD [address] [place] [address] Neuro-endocrine carcinoma (CMS/HCC) (HCC) (Primary [...] on file Legal Sex Female 2:41 PM RUBBISH COLLECTOR Gender Identity Not on file Sexual [...] site documented in this encounter Care Teams Acls Nurse Relationship Specialty Start Date End Date Julio César Briseno MD PCP - General 10/01/16 Eren Cr MD Referring Physician Medical Oncology 11/25/18 Yohana Bowen MD Radiation Oncologist Radiation Oncology 11/25/18 documented as of this encounter
--- OUTSIDE RECORDS SUMMARY | 2024-06-26 02:01 | XMS_ITS | Encounter Summary ---
Author Organization [facility] Address [address] [place] [address] Phone Care Team Providers Care Scruff Worker Name Role Phone Julio César Briseno MD Primary Care Provider Eren Cr MD Unavailable [phone] Yohana Bowen MD Unavailable Encounter Details Date Type Department Care Team (Late st Contact Info) Description 09/26/2022 Documentation [facility] Oncology [address] [place] [address] Rupali Kohler, [place] Social History Tobacco Use [...] file Legal Sex Female 2:41 PM GENERAL CLERK Gender Identity Not on file Sexual [...] Coronavirus/COVID-19? No / Unsure 09/12/2022 10:42 AM GENERAL CLERK documented as of this encounter Nursing Notes * Rupali Kohler RN - 09/26/2022 4:29 PM CDT The patient's home health infusion nurse Luciano ([phone]) called today. She stated that La has [...] on filedocumented in this encounter Care Teams Scruff Worker Relationship Specialty Start Date End Date Julio César Briseno MD PCP - General 10/01/16 Eren Cr MD Referring Physician Medical Oncology 11/25/18 Yohana Bowen MD Radiation Oncologist Radiation Oncology 11/25/18 documented as of this encounter
--- OUTSIDE RECORDS SUMMARY | 2024-06-26 02:01 | XMS_ITS | Encounter Summary ---
Author Organization [facility] Address [address] [place] [address] Phone Care Team Providers Care Metal Cabinet Finisher Name Role Phone Julio César Briseno MD Primary Care Provider [phone] Eren Cr MD Unavailable [phone] Yohana Bowen MD Unavailable Encounter Details Date Type Department Care Team (Late st Contact Info) Description 08/17/2022 Orders Only [facility] Oncology [address] [place] [address] Eren Cr MD [address] [place], [place] [id number] CINV (chemotherapy-induced nausea and vomiting) (Primary Dx) [...] on file Legal Sex Female 2:[address] SUPERVISOR Gender Identity Not on file Sexual [...] documented as of this encounter Care Teams Metal Cabinet Finisher Relationship Specialty Start Date End Date Julio César Briseno MD PCP - General 10/01/16 Eren Cr MD Referring Physician Medical Oncology 11/25/18 Yohana Bowen MD Radiation Oncologist Radiation Oncology 11/25/18 documented as of this encounter
--- OUTSIDE RECORDS SUMMARY | 2024-06-26 02:01 | XMS_ITS | Encounter Summary ---
Author Organization [facility] Healthcare Address [address] [place] [address] Care Team Providers Care Proof Machine Operator Supervisor Name Role Phone Julio César Briseno MD Primary Care Provider [phone] Eren Cr MD Unavailable [phone] Yohana Bowen MD Unavailable Encounter Details Date Type Department Care Team (Latest Contact Info) Description 08/16/2022 1:17 PM VENETIAN BLIND ASSEMBLER - 08/16/2022 11:59 PM VENETIAN BLIND ASSEMBLER Hospital Encounter [facility] [address] [place] [address] Eren Cr MD Formerly [facility], [facility] [address] [place], [place] [id number] Neuro-endocrine carcinoma (CMS/HCC) (HCC) (Primary Dx); Malignant [...] on file Legal Sex Female 2:41 PM VENETIAN BLIND ASSEMBLER Gender Identity Not on file Sexual Orientation Straight 02/19/2021 9: 29 AM CDT Occupation Industry Job Start Date Job End Date retired Not on file Not on file Not on file documented as of this encounter Last Filed Vital Signs Vital Sign Reading Time Taken Comments Blood Pressure 134/66 08/16/2022 1:20 PM VENETIAN BLIND ASSEMBLER Pulse 103 08/16/2022 1:20 PM VENETIAN BLIND ASSEMBLER Temperature 36.3 ??C (97.3 ??F) 08/16/2022 1:20 PM CS T Respiratory Rate 20 08/16/2022 1:20 PM VENETIAN BLIND ASSEMBLER Oxygen Saturation 100% 08/16/2022 1:20 PM VENETIAN BLIND ASSEMBLER Inhaled Oxygen Concentration - - Weight - [...] capsuleIndicatio ns:supplement Take 1 tablet by mouth smooth stucco resurfacer before breakfast 07/04/2016 4 cholecalciferol (VITAMIN D-3) 2,000 unit capsule Take 1 capsule (2,000 Units total) by mouth daily 30 capsule 2 04/25/2019 3 clotrimazole-bet amethasone (LOTRISONE) cream Apply 1 Application topically daily as needed (rash) 4 coenzyme P53-uzqqqqa E 100-5 mg-unit capsuleIndicatio ns:supplement Take 1 tablet by mouth smooth stucco resurfacer before breakfast 4 diphenoxylate-at ropine (LOMOTIL) 2.5-0.025 [...] dose).?? Avoid Jas's Wort, grapefruit products and [place] oranges while on treatment. placed on hold 09/26/22 for covid 01/29/2022 4 levothyroxine (SYNTHROID) 88 mcg tabletIndication s:Hypothyroidism due to medication TAKE 1 TABLET (88 MCG TOTAL) BY MOUTH ALUMINUM POLISHER BEFORE BREAKFAST 30 tablet 1 08/08/2022 3 [...] 1:30 PM CST PAtient arrived to the [facility] for hydration. VSS> 1 L NS given via PIV. PAC no blood return. NC aware. Alteplase instilled and PAC deaccessed. Discharged home ambulatory in stable condition. TIAN BLIND ASSEMBLER documented in this encounter Plan of [...] CannulaIndications:Occluded Arteriovenous Cannula Given 08/16/2022 3:06 PM VENETIAN BLIND ASSEMBLER 2 mg sodium chloride 0.9% 0.9% infusion - ADS Override Pull Starting on Lydia 08/16/22 at 1325, For 1 dose, Created by cabinet override sodium chloride 0.9% bolus 1,000 mL 1,000 mL, intravenous, at 500 mL/hr, Administer over 2 Hours, Once, On Lydia 08/16/22 at 1355, For 1 doseIndications:Dehydration,N euroendocrine carcinoma (HCC) New Bag 08/16/2022 2:02 PM VENETIAN BLIND ASSEMBLER 1,000 mL 500 mL/hr documented in this [...] 08/16/2022 documented in this encounter Care Teams Proof Machine Operator Supervisor Relationship Specialty Start Date End Date Julio César Briseno MD PCP - General 10/01/16 Eren Cr MD Referring Physician Medical Oncology 11/25/18 Yohana Bowen MD Radiation Oncologist Radiation Oncology 11/25/18 documented as of this encounter
--- OUTSIDE RECORDS SUMMARY | 2024-06-26 02:01 | XMS_ITS | Encounter Summary ---
Author Organization [facility] Address [address] [place] [address] Phone Care Team Providers Care Supervisor Plate Pasting Name Role Phone Julio César Briseno MD Primary Care Provider [phone] Eren Cr MD Unavailable [phone] Yohana Bowen MD Unavailable Encounter Details Date Type Department Care Team (Late st Contact Info) Description 08/30/2022 Orders Only [facility] Oncology [address] [place] [address] Eren Cr MD [address] [place] [address] Neuro-endocrine carcinoma (CMS/HCC) (HCC) (Primary [...] Legal Sex Female 2:41 PM VICE PRESIDENT OF NURSING Gender Identity Not on file Sexual Orientation [...] vomiting) documented in this encounter Care Teams Supervisor Plate Pasting Relationship Specialty Start Date End Date Julio César Briseno MD PCP - General 10/01/16 Eren Cr MD Referring Physician Medical Oncology 11/25/18 Yohana Bowen MD Radiation Oncologist Radiation Oncology 11/25/18 documented as of this encounter
--- OUTSIDE RECORDS SUMMARY | 2024-06-26 02:01 | XMS_ITS | Encounter Summary ---
Author Organization [facility] Healthcare Address [address] [place] [address] Care Team Providers Care Senior Technologist Name Role Phone Julio César Briseno MD Primary Care Provider [phone] Eren Cr MD Unavailable [phone] Yohana Bowen MD Unavailable Encounter Details Date Type Department Care Team (Latest Contact Info) Description 08/30/2022 12:15 PM DRAFTER CIVIL ENGINEERING - 08/30/2022 11:59 PM [facility] Hospital Encounter [facility]) [address] [place] [address] Neuro-endocrine carcinoma (CMS/HCC) (HCC) (Primary Dx); [...] on file Legal Sex Female 2:41 PM DRAFTER CIVIL ENGINEERING Gender Identity Not on file Sexual [...] Coronavirus/COVID-19? No / Unsure 09/12/2022 10:42 AM DRAFTER CIVIL ENGINEERING documented as of this encounter Last Filed Vital Signs Vital Sign Reading Time Taken Comments Blood Pressure 110/63 08/30/2022 12:21 PM DRAFTER CIVIL ENGINEERING Pulse 100 08/30/2022 12:21 PM DRAFTER CIVIL ENGINEERING Temperature 36.6 ??C (97.8 ??F) 08/30/2022 12:[address] Respiratory Rate 20 08/30/2022 12:21 PM DRAFTER CIVIL ENGINEERING Oxygen Saturation 100% 08/30/2022 12:21 PM DRAFTER CIVIL ENGINEERING Inhaled Oxygen Concentration - - Weight - [...] capsuleIndicatio ns:supplement Take 1 tablet by mouth service learning coordinator before breakfast 07/04/2016 4 cholecalciferol (VITAMIN D-3) 2,000 unit capsule Take 1 capsule (2,000 Units total) by mouth daily 30 capsule 2 04/25/2019 3 clotrimazole-bet amethasone (LOTRISONE) cream Apply 1 Application topically daily as needed (rash) 4 coenzyme S90-nhvrmcl E 100-5 mg-unit capsuleIndicatio ns:supplement Take 1 tablet by mouth service learning coordinator before breakfast 4 diphenoxylate-at ropine (LOMOTIL) [...] and 1 hour after each dose).?? Avoid Triana's Wort, grapefruit products and [place] oranges while on treatment. placed on hold 09/26/22 for covid 01/29/2022 4 levothyroxine (SYNTHROID) 88 mcg tabletIndication s:Hypothyroidism due to medication TAKE 1 TABLET (88 MCG TOTAL) BY MOUTH HOTEL ASSISTANT GENERAL MANAGER BEFORE BREAKFAST 30 tablet 1 08/08/2022 3 [...] 08/30/2022 documented in this encounter Care Teams Senior Technologist Relationship Specialty Start Date End Date Julio César Briseno MD PCP - General 10/01/16 Eren Cr MD Referring Physician Medical Oncology 11/25/18 Yohana Bowen MD Radiation Oncologist Radiation Oncology 11/25/18 documented as of this encounter
--- OUTSIDE RECORDS SUMMARY | 2024-06-26 02:01 | XMS_ITS | Encounter Summary ---
Author Organization [facility] Address [address] [place] [address] Phone Care Team Providers Care Identification And Records Commander Name Role Phone Julio César Briseno MD Primary Care Provider [phone] Eren Cr MD Unavailable [phone] Yohana Bowen MD Unavailable Reason for Visit * Episode Based Medications (Routine) - Closed Specialty Diagnoses / Procedures Referred By Evelyne bowman Referred To Contact Diagnoses Neuro-endocrine carcinoma (HCC) Procedures study [id number] phase III cabozantinib Eren Cr MD [address] [facility] [address] [place] [address] Phone: tel: fax: [facility] [address] [facility] 7th [place] [address] Phone: tel: Referral ID Status Reason Start Date Expiration Date Visits Re quested Visits Authorized [id number] Closed 06/21/2021 06/26/2024 1 99 Encounter Details Date Type Department Care Team (Latest Contact Info) Description 09/06/2022 3:00 PM OFFSHORE WIND TURBINE TECHNICIAN [facility]/CTRU Mattress And Boxsprings Supervisor [facility] Oncology [address] [place] [address] Neuro-endocrine carcinoma (CMS/HCC) (HCC) (Primary Dx) Social [...] on file Legal Sex Female 2:41 PM OFFSHORE WIND TURBINE TECHNICIAN Gender Identity Not on [...] Date First Ordered Date INV-[id number] cabozantinib/pl acebo (/[id number]) tablet 20 mg 1 09/06/2022 Nursing Count Last Ordered Date First Orde red Date ONCBCN STUDY COMMUNICATION 2 1 09/06/2022 ONCBCN TREATMENT PARAMETERS 1 1 09/06/2022 RESEARCH STUDY CLARIFICATION ORDER 1 2022 Appointment Requests Count Last Ordered Date Fi rst Ordered Date ONCBCN TAKE HOME STUDY DRUG APPT 1 09/07/19 23 documented in this encounter Care Teams Identification And Records Commander Relationship Specialty Start Date End Date Julio César Briseno MD PCP - General 10/01/16 Eren Cr MD Referring Physician Medical Oncology 11/25/18 Yohana Bowen MD Radiation Oncologist Radiation Oncology 11/25/18 documented as of this encounter
--- OUTSIDE RECORDS SUMMARY | 2024-06-26 02:01 | XMS_ITS | Encounter Summary ---
Author Organization [facility] Address [address] [place] [address] Phone Care Team Providers Care Mail Service Coordinator Name Role Phone Julio César Briseno MD Primary Care Provider [phone] Eren Cr MD Unavailable [phone] Yohana Bowen MD Unavailable Encounter Details Date Type Department Care Team (Late st Contact Info) Description 09/12/2022 Orders Only [facility] Scheduling [address] [place] [address] Jose Ayers, Dylan Social History Tobacco Use [...] file Legal Sex Female 2:41 PM MEDICAL CASE MANAGER Gender Identity Not on file Sexual [...] No / Unsure 09/12/2022 10:42 AM MEDICAL CASE MANAGER documented as of this encounter Progress Notes [...] ml/hour. Labs: None ordered at this time retirement visit 1 to 2 times per week for 9 weeks for patient assessment, teaching, and IV catheter care. 9 PRN visits for additional teaching, line care, labs or other symptom management. CAL CASE MANAGER documented in this encounter Plan of Treatment Not on file documented as of this encounter Visit Diagnoses Not on filedocumented in this encounter Care Teams Mail Service Coordinator Relationship Specialty Start Date End Date Julio César Briseno MD PCP - General 10/01/16 Eren Cr MD Referring Physician Medical Oncology 11/25/18 Yohana Bowen MD Radiation Oncologist Radiation Oncology 11/25/18 documented as of this encounter
--- OUTSIDE RECORDS SUMMARY | 2024-06-26 02:01 | XMS_ITS | Encounter Summary ---
Author Organization [facility] Address [address] [place] [address] Phone Care Team Providers Care Ordnance Engineering Technician Name Role Phone Julio César Briseno MD Primary Care Provider [phone] Eren Cr MD Unavailable [phone] Yohana Bowen MD Unavailable Encounter Details Date Type Department Care Team (Late st Contact Info) Description 09/13/2022 Plan of Care Documentation [facility] [address] [place] [address] Social History Tobacco Use Types [...] Coronavirus/COVID-19? No / Unsure 09/12/2022 10:42 AM CRNA documented as of this encounter Miscellaneous Notes * Home Health Plan of Care - [place] - 09/28/2022 1:10 PM CDT Patient has Living Will: No Patient has Advance Directive: No Patient has Durable Power of Safety Teacher: No Code Status: Full Code * Home [...] review the plan. The patient had a [id number] encounter with Eren Cr Jr., MD on 09/06/2022 and the encounter was related to the primary reason for home health care. documented in this encounter Plan of Treatment Not on file documented as of this encounter Visit Diagnoses Not on filedocumented in this encounter Care Teams Ordnance Engineering Technician Relationship Specialty Start Date End Date Julio César Briseno MD PCP - General 10/01/16 Eren Cr MD Referring Physician Medical Oncology 11/25/18 Yohana Bowen MD Radiation Oncologist Radiation Oncology 11/25/18 documented as of this encounter
--- OUTSIDE RECORDS SUMMARY | 2024-06-26 02:01 | XMS_ITS | Encounter Summary ---
Author Organization [facility] [employer] [facility] Address [address] [place] [address] Phone Care Team Providers Care Ibm Bpm Developer Name Role Phone Julio César Briseno MD Primary Care Provider Eren Cr MD Unavailable Yohana Bowen MD Unavailable Encounter Details Date Type Department Care Team (Late st Contact Info) Description 09/06/2022 3:00 PM BOX FOLDING MACHINE OPERATOR Infusion [facility] Oncology [address] [place] [address] Neuro-endocrine carcinoma (CMS/HCC) (HCC) (Primary Dx); Malignant [...] file Legal Sex Female 2:41 PM BOX FOLDING MACHINE OPERATOR Gender Identity Not on file Sexual Orientation Straight 02/19/2021 9: 29 AM CDT Occupation Industry Job Start Date Job End Date retired Not on file Not on file Not on file documented as of this encounter Nursing Notes * Vivian Jenkins RN - 09/06/2022 3:00 PM CST Oncology Nursing Note [facility] [...] Ambulatory Accompanied by: Self Discharged To: Home FOLDING MACHINE OPERATOR documented in this encounter Plan of [...] doseIndications:Hypophosph atemia Rate/Dose Change 09/06/2022 3:43 PM BOX FOLDING MACHINE OPERATOR 700 mL/hr New Bag 09/06/2022 3:29 PM BOX FOLDING MACHINE OPERATOR 1,000 mL 500 mL/hr documented in [...] First Orde red Date ONCBCN NURSING COMMUNICATION [id number] 09/06 ONCBCN NURSING COMMUNICATION [id number] 1 0 09/06/2022 PHYSICIAN COMMUNICATION ORDER 1 09/06/2022 Appointment Requests Count Last Ordered Date Fi rst Ordered Date ONCBCN INFUSION APPT REQUEST 1 09/06/2022 documented in this encounter Care Teams Ibm Bpm Developer Relationship Specialty Start Date End Date Julio César Briseno MD PCP - General 10/01/16 Eren Cr MD Referring Physician Medical Oncology 11/25/18 Yohana Bowen MD Radiation Oncologist Radiation Oncology 11/25/18 documented as of this encounter
--- OUTSIDE RECORDS SUMMARY | 2024-06-26 02:01 | XMS_ITS | Encounter Summary ---
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 Procedures CT chest abdomen pelvis with contrast Eren Cr MD [address] [place] [address] Phone: tel: fax: [facility] Referral ID Status Reason Start Date Expiration Date Visits Re quested Visits Authorized [id number] Closed 08/10/2022 09/09/2023 1 1 CE MACHINE MECHANIC Reason for Visit * MRI/CAT/PET Scan (Routine) - Closed Specialty Diagnoses / Procedures [facility] Referred To Contact Radiology Diagnoses Neuroendocrine carcinoma (HCC) 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) Bone metastasis Procedures CT chest abdomen pelvis with contrast Eren Cr MD [address] [address] [place] [address] Phone: tel: fax: [facility] Referral ID Status Reason Start Date Expiration Date Visits Re quested Visits Authorized [id number] Closed 08/10/2022 09/09/2023 1 1 Encounter Details Date Type Department Care Team (Latest Contact Info) Description 09/05/2022 1:09 PM OFFICE MACHINE MECHANIC - 09/05/2022 11:59 PM OFFICE MACHINE MECHANIC Hospital Encounter [facility] Radiology at [facility] [address] [place] [phone] Neuroendocrine carcinoma (CMS/HCC) (HCC); Malignant neoplasm metastatic [...] file Legal Sex Female 2:41 PM OFFICE MACHINE MECHANIC Gender Identity Not on file Sexual [...] capsuleIndicatio ns:supplement Take 1 tablet by mouth well logging captain before breakfast 07/04/2016 4 cholecalciferol (VITAMIN D-3) 2,000 unit capsule Take 1 capsule (2,000 Units total) by mouth daily 30 capsule 2 04/25/2019 3 clotrimazole-bet amethasone (LOTRISONE) cream Apply 1 Application topically daily as needed (rash) 4 coenzyme L39-eokekqr E 100-5 mg-unit capsuleIndicatio ns:supplement Take 1 tablet by mouth well logging captain before breakfast 4 diphenoxylate-at ropine (LOMOTIL) 2.5-0.025 [...] dose).?? Avoid Jas's Wort, grapefruit products and [place] oranges while on treatment. placed on hold 09/26/22 for covid 01/29/2022 4 levothyroxine (SYNTHROID) 88 mcg tabletIndication s:Hypothyroidism due to medication TAKE 1 TABLET (88 MCG TOTAL) BY MOUTH STORE MGR BEFORE BREAKFAST 30 tablet 1 09/03/2022 3 [...] (Appt Today, Awaiting Results) 09/05/2022 1:54 PM OFFICE MACHINE MECHANIC 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) Bone metastasis (CMS/HCC) (HCC) POCT CREATININE - DEVICE Routine 09/05/2022 1:40 PM OFFICE MACHINE MECHANIC documented in this encounter Results * CT chest abdomen pelvis with contrast (09/05/2022 1:54 PM OFFICE MACHINE MECHANIC) Anatomical Region Laterality Modality Body N/A Computed Tomogra phy 09/05/2022 3:23 PM OFFICE MACHINE MECHANIC Impressions 09/05/2022 4:37 PM OFFICE MACHINE MECHANIC 1. ??Stable hepatic lesions and peritoneal implants compatible with the patient's known neuroendocrine malignancy. 2. ??No new findings of metastatic disease. Dictated by: Mj Hayden MD The radiology attending physician has personally reviewed this study, and had reviewed and/or edited this written report and agrees with it. Electronically signed by: Valentina Muñoz M.D. Narrative 09/05/2022 4:37 PM OFFICE MACHINE MECHANIC EXAMINATION: CT CHEST ABDOMEN PELVIS W CONTRAST [...] t * POCT creatinine (09/05/2022 1:40 PM OFFICE MACHINE MECHANIC) Creatinine POC 0.9 0.6 - 1.1 mg/dL [facility] Blood 09/05/2022 1:40 PM OFFICE MACHINE MECHANIC 09/05/2022 1:40 PM OFFICE MACHINE MECHANIC Eren Cr MD LAB POCT ORDERABLES - DEVICE Final Result [facility] Department [place] [address] documented in this encounter Visit Diagnoses Diagnosis [...] For 1 dose Given 09/05/2022 1:54 PM OFFICE MACHINE MECHANIC 500 Units ioversoL (OPTIRAY 350) injection 76 mL 76 mL, intravenous, Once in imaging, contrast, Starting on Sat09/05/22 at 1348, For 1 dose Contrast Given 09/05/2022 1:49 PM OFFICE MACHINE MECHANIC 76 mL documented in this encounter Care Teams Recoil Spring Winder Relationship Specialty Start Date End Date Julio César Briseno MD PCP - General 10/01/16 Eren Cr MD Referring Physician Medical Oncology 11/25/18 Yohana Bowen MD Radiation Oncologist Radiation Oncology 11/25/18 documented as of this encounter
--- OUTSIDE RECORDS SUMMARY | 2024-06-26 02:01 | XMS_ITS | Encounter Summary ---
Author Organization [facility] Address [address] [place] [address] Phone Care Team Providers Care Audio Video Repairer Name Role Phone Julio César Briseno MD Primary Care Provider [phone] Eren Cr MD Unavailable [phone] Yohana Bowen MD Unavailable Reason for Visit * Reason Onset Date Comments med refill 08/17/2022 Encounter Details Date Type Department Care Team (Late st Contact Info) Description 08/17/2022 Telephone [facility] Oncology [address] [place] [address] Eren Cr MD [address] [address] [place] [address] med refill Social History Tobacco Use Types [...] Legal 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 Zofran refill sent to [facility] pharmacy as requesting. They will call if no improvement or worsening of nausea. SCHOOL ENGLISH TEACHER documented in this encounter Plan of Treatment Not on file documented as of this encounter Visit Diagnoses Not on filedocumented in this encounter Care Teams Audio Video Repairer Relationship Specialty Start Date End Date Julio César Briseno MD PCP - General 10/01/16 Eren Cr MD Referring Physician Medical Oncology 11/25/18 Yohana Bowen MD Radiation Oncologist Radiation Oncology 11/25/18 documented as of this encounter
--- OUTSIDE RECORDS SUMMARY | 2024-06-26 02:01 | XMS_ITS | Encounter Summary ---
Author Organization [facility] Healthcare Address [address] [place] [address] Care Team Providers Care Filler And Trimmer Name Role Phone Julio César Briseno MD Primary Care Provider [phone] Eren Cr MD Unavailable [phone] Yohana Bowen MD Unavailable Encounter Details Date Type Department Care Team (Latest Contact Info) Description 09/06/2022 1:24 PM SENIOR JAVASCRIPT DEVELOPER - 09/06/2022 11:59 PM [facility] Hospital Encounter [address] [address] Neuroendocrine carcinoma (CMS/HCC) (HCC); Malignant neoplasm metastatic [...] file Legal Sex Female 2:41 PM SENIOR JAVASCRIPT DEVELOPER Gender Identity Not on file Sexual [...] capsuleIndicatio ns:supplement Take 1 tablet by mouth developmental electronics assembler before breakfast 07/04/2016 4 cholecalciferol (VITAMIN D-3) 2,000 unit capsule Take 1 capsule (2,000 Units total) by mouth daily 30 capsule 2 04/25/2019 3 clotrimazole-bet amethasone (LOTRISONE) cream Apply 1 Application topically daily as needed (rash) 4 coenzyme [id number] 100-5 mg-unit capsuleIndicatio ns:supplement Take 1 tablet by mouth developmental electronics assembler before breakfast 4 diphenoxylate-at ropine (LOMOTIL) 2.5-0.025 [...] as needed for rhinitis or allergies 4 [facility] cabozantinib/maris cebo (2017-08-122/A02 1602) 20 mg tabletIndication s:cancer study Take 1 tablet (20 mg total) by mouth nightly Take on an empty stomach (no food for 2 hours before and 1 hour after each dose).?? Avoid Jas's Wort, grapefruit products and Florence oranges while on treatment. placed on hold 09/26/22 for covid 01/29/2022 4 levothyroxine (SYNTHROID) 88 mcg tabletIndication s:Hypothyroidism due to medication TAKE 1 TABLET (88 MCG TOTAL) BY MOUTH BUCKET HOOKER BEFORE BREAKFAST 30 tablet 1 09/03/2022 3 [...] Diagnosis Comments EGFR STAT 09/06/2022 1:57 PM SENIOR JAVASCRIPT DEVELOPER 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) DIFFERENTIAL AUTO Routine 09/06/2022 1:5 7 PM SENIOR JAVASCRIPT DEVELOPER 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) THYROID FUNCTION CASCADE Routine 09/06/2022 1:57 PM SENIOR JAVASCRIPT DEVELOPER CHROMOGRANIN A Routine 09/06/2022 1:57 PM SENIOR JAVASCRIPT DEVELOPER 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) CBC WITH AUTO DIFFERENTIAL Routine 09/06/2022 1:57 PM SENIOR JAVASCRIPT DEVELOPER 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) VITAMIN D 25 HYDROXY Routine 09/06/2022 1:57 PM SENIOR JAVASCRIPT DEVELOPER 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) T4, FREE Routine 09/06/2022 1:57 PM SENIOR JAVASCRIPT DEVELOPER PHOSPHORUS Routine 09/06/2022 1:57 PM SENIOR JAVASCRIPT DEVELOPER 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) MAGNESIUM STAT 09/06/2022 1:57 PM SENIOR JAVASCRIPT DEVELOPER Neuro-endocrine carcinoma (CMS/HCC) (HCC) LIPID PANEL Routine 09/06/2022 1:57 PM SENIOR JAVASCRIPT DEVELOPER 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) COMPREHENSIVE METABOLIC PANEL STAT 09/06/2022 1:57 PM SENIOR JAVASCRIPT DEVELOPER 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) PROTEIN / CREATININE RATIO, URINE, RANDOM STAT 09/06/2022 1:55 PM SENIOR JAVASCRIPT DEVELOPER Neuro-endocrine carcinoma (CMS/HCC) (HCC) documented in this encounter Results * T4, free (09/06/2022 1:57 PM SENIOR JAVASCRIPT DEVELOPER) Free T4 1.15 0.90 - 1.70 ng/dL [facility] Blood 09/06/2022 1:57 PM SENIOR JAVASCRIPT DEVELOPER 09/06/2022 5:58 PM SENIOR JAVASCRIPT DEVELOPER Narrative [facility] - 09/06/2022 7:09 PM SENIOR JAVASCRIPT DEVELOPER This test was reflexed from a TSH result. us Eren Cr MD LAB BLOOD ORDERABLES Final Re sult [facility] [place] [address] * (ABNORMAL) TSH reflex to free T4 (09/06/2022 1:57 PM SENIOR JAVASCRIPT DEVELOPER) TSH 4.84(H) 0.30 - 4.20 mcIUnit/mL [facility] Blood 09/06/2022 1:57 PM SENIOR JAVASCRIPT DEVELOPER 09/06/2022 5:54 PM SENIOR JAVASCRIPT DEVELOPER us Eren Cr MD LAB BLOOD ORDERABLES Final Re sult Performing Organization Address [facility] Co de Phone Number [facility] Department [place] [address] * (ABNORMAL) eGFR (09/06/2022 1:57 PM SENIOR JAVASCRIPT DEVELOPER) eGFR 34(L) 90 - 130 mL/min/1. 73 m2 [facility] Comment: Interpretive Data Reference Interval Normal [...] last reviewed 2021. Blood 09/06/2022 1:57 PM SENIOR JAVASCRIPT DEVELOPER 09/06/2022 1:59 PM SENIOR JAVASCRIPT DEVELOPER us Eren Cr MD LAB BLOOD ORDERABLES Final Re sult Performing Organization Address City/[facility] Co de Phone Number [facility] [place] [address] * (ABNORMAL) Differential, auto (09/06/2022 1:57 PM SENIOR JAVASCRIPT DEVELOPER) Neutrophil abs 2.4 1.7 - 6.5 K/cumm [facility] Comment:Testing performed by : [facility], [address] [place] [id number] Imm gran abs 0.0 0.0 - 0.1 K/cumm [facility] Lymphocyte abs 0.7(L) 0.8 - 3.3 K/cumm [facility] Monocyte abs 0.6 0.2 - 0.8 K/cumm [facility] Eosinophil abs 0.4 0.0 - 0.5 K/cumm [facility] Basophil abs 0.0 0.0 - 0.1 K/cumm [facility] Neutrophil pct 59.1 % [facility] Comment: Interpretive Data Percent cell count reference ranges are not reported, since discordance with absolute values may lead to misinterpretation of CBC data. Current Interpretive Data was last revised on 2017. Imm gran pct 0.2 % [facility] Comment: Interpretive Data Percent cell count reference ranges are not reported, since discordance with absolute values may lead to misinterpretation of CBC data. Current Interpretive Data was last revised on 2017. Lymphocyte pct 16.1 % [facility] Comment: Interpretive Data Percent cell count reference ranges are not reported, since discordance with absolute values may lead to misinterpretation of CBC data. Current Interpretive Data was last revised on 2017. Monocyte pct 14.9 % [facility] Comment: Interpretive Data Percent cell count reference ranges are not reported, since discordance with absolute values may lead to misinterpretation of CBC data. Current Interpretive Data was last revised on 2017. Eosinophil pct 9.2 % [facility] Comment: Interpretive Data Percent cell count reference ranges are not reported, since discordance with absolute values may lead to misinterpretation of CBC data. Current Interpretive Data was last revised on 2017. Basophil pct 0.5 % [facility] Comment: Interpretive Data Percent cell count reference ranges are not reported, since discordance with absolute values may lead to misinterpretation of CBC data. Current Interpretive Data was last revised on 2017. Blood 09/06/2022 1:57 PM SENIOR JAVASCRIPT DEVELOPER 09/06/2022 1:59 PM SENIOR JAVASCRIPT DEVELOPER Eren Cr MD LAB BLOOD ORDERABLES Final Re sult Performing Organization Address [facility] Co de Phone Number [facility] [address] * Magnesium (09/06/2022 1:57 PM SENIOR JAVASCRIPT DEVELOPER) Magnesium 1.4 1.4 - 2.5 mg/dL [facility] Comment:Testing performed by : [address] [address] Blood 09/06/2022 1:57 PM SENIOR JAVASCRIPT DEVELOPER 09/06/2022 1:59 PM SENIOR JAVASCRIPT DEVELOPER Eren Cr MD LAB BLOOD ORDERABLES Final Re sult Performing Organization Address [facility] [place] [address] * (ABNORMAL) Lipid panel (09/06/2022 1:57 PM SENIOR JAVASCRIPT DEVELOPER) Cholesterol 172 30 - 199 mg/dL [facility] on 2018. Triglycerides 281(H) <=149 mg/dL [facility] Comment: Interpretive Data [...] on 2018. HDL 52 >=40 mg/dL [facility] Comment: Interpretive Data [...] 2018. LDL, calculated 64 <=129 mg/dL [facility] Comment: Interpretive Data [...] 3 [facility] Blood 09/06/2022 1:57 PM SENIOR JAVASCRIPT DEVELOPER 09/06/2022 5:54 PM SENIOR JAVASCRIPT DEVELOPER us Eren Cr MD LAB BLOOD ORDERABLES Final Re sult [facility] [place] [address] * Phosphorus (09/06/2022 1:57 PM SENIOR JAVASCRIPT DEVELOPER) Phosphorus, pl 2.5 2.3 - 4.5 mg/dL [facility] Comment:Testing performed by : [address] [address] Blood 09/06/2022 1:57 PM SENIOR JAVASCRIPT DEVELOPER 09/06/2022 1:59 PM SENIOR JAVASCRIPT DEVELOPER Eren Cr MD LAB BLOOD ORDERABLES Final Re sult Performing Organization Address City/[facility]/ZIP Co de Phone Number [facility] [place] [address] * (ABNORMAL) Vitamin D 25 hydroxy (09/06/2022 1:57 PM SENIOR JAVASCRIPT DEVELOPER) Pathologist [facility] Vitamin D 25-OH 21(L) 30 - 80 ng/mL [facility] Blood 09/06/2022 1:57 PM SENIOR JAVASCRIPT DEVELOPER 09/06/2022 5:54 PM SENIOR JAVASCRIPT DEVELOPER Eren Cr MD LAB BLOOD ORDERABLES Final Re sult Performing Organization Address [facility] Co de Phone Number [facility] [place] [address] * (ABNORMAL) CBC with auto differential (09/06/2022 1:57 PM SENIOR JAVASCRIPT DEVELOPER) [facility] WBC 4.0 3.8 - 9.9 K/cumm [facility] Comment:Testing performed by : [address] [address] Hgb 11.3(L) 11.9 - 15.5 g/dL [facility] Comment:Testing performed by : [address] [address] Hct 33.2(L) 35.6 - 45.5 % [facility] Comment:Testing performed by : [address] [address] Plt 102(L) 150 - 400 K/cumm [facility] Comment:Testing performed by : [address] [address] MPV 10.3 9.1 - 12.3 fL [facility] RBC 3.41(L) 3.90 - 5.20 M/cumm [facility] MCV 97.4(H) 81.3 - 96.4 fL [facility] MCH 33.1 27.1 - 33.3 pg [facility] MCHC 34.0 32.3 - 35.7 g/dL [facility] RDW CV 13.8 11.1 - 14.9 % [facility] RDW SD 48.6(H) 35.7 - 48.1 fL [facility] NRBC abs 0.00 0.00 - 0.01 K/cumm [facility] Blood 09/06/2022 1:57 PM SENIOR JAVASCRIPT DEVELOPER 09/06/2022 1:59 PM SENIOR JAVASCRIPT DEVELOPER us Eren Cr MD LAB BLOOD ORDERABLES Final Re sult [facility] [place] [address] * (ABNORMAL) Comprehensive metabolic panel (09/06/2022 1:57 PM SENIOR JAVASCRIPT DEVELOPER) Pathologist [facility] Sodium 139 135 - 145 mmol/L [facility] Comment:Testing performed by : [facility], [address] [place] [address] Potassium, pl 4.4 3.3 - 4.9 mmol/L [facility] Chloride 108 97 - 110 mmol/L [facility] CO2 26 22 - 32 mmol/L [facility] Anion gap 5 2 - 15 mmol/L [facility] BUN 21 8 - 25 mg/dL [facility] Creatinine 1.59(H) 0.60 - 1.10 mg/dL [facility] Glucose 81 70 - 199 mg/dL [facility] [...] 2022. Calcium 10.1 8.5 - 10.3 mg/dL [facility] Bilirubin, total 0.4 0.1 - 1.2 mg/dL [facility] Protein, pl 6.5 6.5 - 8.5 g/dL [facility] Albumin 4.0 3.5 - 5.0 g/dL [facility] Alk phos 65 40 - 130 Units/L [facility] ALT 24 7 - 45 Units/L [facility] AST 33 10 - 45 Units/L [facility] Blood 09/06/2022 1:57 PM SENIOR JAVASCRIPT DEVELOPER 09/06/2022 1:59 PM SENIOR JAVASCRIPT DEVELOPER us Eren Cr MD LAB BLOOD ORDERABLES Final Re sult [facility] [place] [address] * (ABNORMAL) Chromogranin A (09/06/2022 1:57 PM SENIOR JAVASCRIPT DEVELOPER) Chromogranin A 1202(H) <93 ng/mL [facility] Comment: Impaired renal or hepatic function or treatment with proton pump inhibitors may result in artifactual elevations of Chromogranin A. ADDITIONAL INFORMATION This test was developed and its performance characteristics determined by [facility] in a manner consistent with CLIA [...] a homogeneous time-resolved immunofluorescent assay manufactured by [employer] and performed on the [employer] Kryptor Compact Plus. ? Values obtained with different assay methods or kits may be different and cannot be used interchangeably. ? Test results cannot be interpreted as absolute evidence for the presence or absence of malignant disease. Test Performed by: [facility] [address] [id number] Doctor Of Naprapathy: Immanuel Novak M.D. Ph.D.; CLIA# [id number] Blood 09/06/2022 1:57 PM SENIOR JAVASCRIPT DEVELOPER 09/06/2022 6:00 PM SENIOR JAVASCRIPT DEVELOPER Eren Cr MD LAB BLOOD ORDERABLES Final Re sult Performing Organization Address [facility] [place] [address] * Protein / creatinine ratio, urine, random (09/06/2022 1:55 PM SENIOR JAVASCRIPT DEVELOPER) Protein, ur, quant 15.9 mg/dL [facility] Comment: Interpretive Data No reference range established. Current interpretive data was last revised 2018. Creatinine Ur 229.1 mg/dL [facility] Comment: Interpretive Data No reference range established. Current interpretive data was last revised 2018. 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
--- OUTSIDE RECORDS SUMMARY | 2024-06-26 02:01 | XMS_ITS | Encounter Summary ---
Author Organization [facility] Address [address] [place] [address] Phone Care Team Providers Care Refrigerating Machine Operator Name Role Phone Julio César Briseno MD Primary Care Provider Eren Cr MD Unavailable Yohana Bowen MD Unavailable Encounter Details Date Type Department Care Team (Late st Contact Info) Description 09/14/2022 Orders Only [facility] On[facility] [address] [place] [address] Eren Cr MD [address] [place] [address] Malignant neoplasm metastatic to liver [...] on file Legal Sex Female 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
--- OUTSIDE RECORDS SUMMARY | 2024-06-26 02:01 | XMS_ITS | Encounter Summary ---
Author Organization [facility] Address [address] [place] [address] Phone Care Team Providers Care Egg Setter Name Role Phone Julio César Briseno MD Primary Care Provider [phone] Eren Cr MD Unavailable [phone] Yohana Bowen MD Unavailable Encounter Details Date Type Department Care Team (Late st Contact Info) Description 09/06/2022 1:15 PM CALCULUS TEACHER Clinical Support 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
--- OUTSIDE RECORDS SUMMARY | 2024-06-26 02:01 | XMS_ITS | Encounter Summary ---
Author Organization 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 No / Unsure 09/12/2022 10:42 AM TERRAZZO POLISHER HELPER documented as of this encounter Last Filed [...] Rate Site 0.9 % sodium chloride ([facility] sodium chloride 0.9%) injection 10 [...] home health visit Disciplines: SN, PT, OT, STUDENT LIFE DEAN, OCCUPATIONAL HEALTH PHYSIOTHERAPIST, Skilled Disciplines Monitor patient's vital signs every [...] visit during episode of care Description: Home onion farmer to measure vital signs during every home [...] signs of infection Completed reviewed good handwashing, engineering technical analyst with all aspects of iv admin, and [...] Scheduled documented in this encounter Care Teams Business Broker Relationship Specialty Start Date End Date Julio César Briseno MD PCP - General 10/01/16 Eren Cr MD Referring Physician Medical Oncology 11/25/18 Yohana Bowen MD Radiation Oncologist Radiation Oncology 11/25/18 documented as of this encounter
--- OUTSIDE RECORDS SUMMARY | 2024-06-26 02:01 | XMS_ITS | Encounter Summary ---
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 Procedures CT chest abdomen pelvis with contrast Eren Cr MD [address] [place] [address] Phone: tel: fax: [facility] Referral ID Status Reason Start Date Expiration Date Visits Re quested Visits Authorized [id number] Closed 08/10/2022 09/09/2023 1 1 TAL MARKETING PROGRAM MANAGER Encounter Details Date Type Department Care Team (Late st Contact Info) Description 08/10/2022 Orders Only [facility] [address] [place] [address] Eren Cr MD [address] [place] [address] Neuroendocrine carcinoma (CMS/HCC) (HCC) (Primary Dx); Malignant [...] Legal Sex Female 2:41 PM DIGITAL MARKETING PROGRAM MANAGER Gender Identity Not on file Sexual Orientation Straight 02/19/2021 9: 29 AM CDT Occupation Industry Job Start Date Job End Date retired Not on file Not on file Not on file documented as of this encounter Plan of Treatment Not on file documented as of this encounter Results * CT chest abdomen pelvis with contrast (09/05/2022 1:54 PM DIGITAL MARKETING PROGRAM MANAGER) Anatomical Region Laterality Modality Body N/A Computed Tomogra phy 09/05/2022 3:23 PM DIGITAL MARKETING PROGRAM MANAGER Impressions 09/05/2022 4:37 PM DIGITAL MARKETING PROGRAM MANAGER 1. ??Stable hepatic lesions and peritoneal implants compatible with the patient's known neuroendocrine malignancy. 2. ??No new findings of metastatic disease. Dictated by: Mj Hayden MD The radiology attending physician has personally reviewed this study, and had reviewed and/or edited this written report and agrees with it. Electronically signed by: Valentina Muñoz M.D. Narrative 09/05/2022 4:37 PM DIGITAL MARKETING PROGRAM MANAGER EXAMINATION: CT CHEST ABDOMEN PELVIS W CONTRAST [...] marrow documented in this encounter Care Teams Supervisor Diagnostic Relationship Specialty Start Date End Date Julio César Briseno MD PCP - General 10/01/16 Eren Cr MD Referring Physician Medical Oncology 11/25/18 Yohana Bowen MD Radiation Oncologist Radiation Oncology 11/25/18 documented as of this encounter
--- OUTSIDE RECORDS SUMMARY | 2024-06-26 02:01 | XMS_ITS | Encounter Summary ---
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) Procedures [place] OCTREOTIDE INJECTION, DEPOT Octreotide 28 Day Cycles - Carcinoid Eren Cr MD [address] [place] [address] Phone: tel: fax: [address] [address] Phone: tel: fax: Referral ID Status Reason Start Date Expiration Date V isits Requested Visits Authorized [id number] Authorized 11/28/2017 02/05/2025 1 150 Encounter Details Date Type Department Care Team (Late st Contact Info) Description 09/06/2022 2:45 PM MEDIA PRODUCER Infusion [facility] Oncology [address] [place] [address] Neuroendocrine carcinoma (CMS/HCC) (HCC); Malignant neoplasm metastatic [...] 09/06/2022 2:45 PM CST Oncology Nursing Note [facility] Ambulatory Accompanied by: Self Discharged To: Home A PRODUCER * Vivian Jenkins RN - 09/06/2022 2:45 PM CST Oncology Nursing Note [facility] Self Discharged To: Home in stable condition A PRODUCER documented in this encounter Plan of [...] e carcinoma (HCC) Given 09/06/2022 3:41 PM MEDIA PRODUCER 120 mg Right Lower Abdomen octreotide LAR (SandoSTATIN LAR) extended release intramuscular injection 30 mg 30 mg, intramuscular, Once, On Lydia 09/06/22 at 1600, For 1 dose, Refrigerate. For IM intragluteal administration only- alternate gluteal sites. Shake.Indications:Maligna nt neoplasm metastatic to liver (HCC),Neuroendocrine carcinoma (HCC) Given 09/06/2022 3:42 PM MEDIA PRODUCER 30 mg Left Ventrogluteal documented in this encounter Orders Appointment Requests Count Last Ordered Date Fi rst Ordered Date ONCBCN INJECTION APPOINTMENT REQUEST 1 08/2022 documented in this encounter Care Teams Operations Label Clerk Relationship Specialty Start Date End Date Julio César Briseno MD PCP - General 10/01/16 Eren Cr MD Referring Physician Medical Oncology 11/25/18 Yohana Bowen MD Radiation Oncologist Radiation Oncology 11/25/18 documented as of this encounter
--- OUTSIDE RECORDS SUMMARY | 2024-06-26 02:01 | XMS_ITS | Encounter Summary ---
Author Organization [facility] Address [address] [place] [address] Phone Care Team Providers Care Three Knife Trimmer Name Role Phone Julio César Briseno MD Primary Care Provider [phone] Eren Cr MD Unavailable [phone] Yohana Bowen MD Unavailable Encounter Details Date Type Department Care Team (Late st Contact Info) Description 10/01/2022 Orders Only [facility] Oncology [address] [place] [address] Eren Cr MD [address] [place] [address] Malignant neoplasm metastatic to liver [...] file Legal Sex Female 2:41 PM LICENSED WEIGHER Gender Identity Not on file Sexual [...] Coronavirus/COVID-19? No / Unsure 09/12/2022 10:42 AM LICENSED WEIGHER documented as of this encounter Plan of Treatment Not on file documented as of this encounter Results * (ABNORMAL) Chromogranin A (10/18/2022 10:46 AM CDT) Chromogranin A 1393(H) <93 ng/mL [facility] Comment: Impaired renal or hepatic [...] a homogeneous time-resolved immunofluorescent assay manufactured by [employer] and performed on the [employer] Compact Plus. ? Values obtained with different assay methods or kits may be different and cannot be used interchangeably. ? Test results cannot be interpreted as absolute evidence for the presence or absence of malignant disease. Test Performed by: [address] [address] Air Pollution Specialist: Immanuel Novak M.D. Ph.D.; [facility]# [id number] Blood 10/18/2022 10:4 6 AM CDT 10/18/2022 11:54 AM CDT Eren Cr MD LAB BLOOD ORDERABLES Final Re sult [facility] Department [place] [address] * (ABNORMAL) Comprehensive metabolic panel (10/18/2022 10:46 AM CDT) Sodium 140 135 - 145 mmol/L [facility] Comment:Testing performed by : [facility], [address] [place] [address] Potassium, pl 4.0 3.3 - 4.9 mmol/L [facility] Chloride 109 97 - 110 mmol/L [facility] CO2 28 22 - 32 mmol/L [facility] Anion gap 3 2 - 15 mmol/L [facility] BUN 15 8 - 25 mg/dL [facility] Creatinine 1.32(H) 0.60 - 1.10 mg/dL [facility] Glucose 99 70 - 199 mg/dL [facility] [...] 2022. Calcium 10.0 8.5 - 10.3 mg/dL [facility] Bilirubin, total 0.5 0.1 - 1.2 mg/dL [facility] Protein, pl 6.3(L) 6.5 - 8.5 g/dL [facility] Albumin 3.9 3.5 - 5.0 g/dL [facility] Alk phos 55 40 - 130 Units/L [facility] ALT 15 7 - 45 Units/L [facility] AST 26 10 - 45 Units/L [facility] Blood 10/18/2022 10:4 6 AM CDT 10/18/2022 10:47 AM CDT us Eren Cr MD LAB BLOOD ORDERABLES Final Re sult [facility] [place] [address] * (ABNORMAL) CBC with auto differential (10/18/2022 10:46 AM CDT) WBC 3.5(L) 3.8 - 9.9 K/cumm [facility] Comment:Testing performed by : [address] [address] Hgb 10.3(L) 11.9 - 15.5 g/dL [facility] Comment:Testing performed by : [address] [address] Hct 31.8(L) 35.6 - 45.5 % [facility] Comment:Testing performed by : [address] [address] Plt 117(L) 150 - 400 K/cumm [facility] Comment:Testing performed by : [address] [address] MPV 10.0 9.1 - 12.3 fL [facility] RBC 3.07(L) 3.90 - 5.20 M/cumm [facility] MCV 103.6(H) 81.3 - 96.4 fL [facility] MCH 33.6(H) 27.1 - 33.3 pg [facility] MCHC 32.4 32.3 - 35.7 g/dL [facility] RDW CV 14.6 11.1 - 14.9 % [facility] RDW SD 54.6(H) 35.7 - 48.1 fL [facility] NRBC abs 0.00 0.00 - 0.01 K/cumm [facility] Blood 10/18/2022 10:4 6 AM CDT 10/18/2022 10:47 AM CDT Eren Cr MD LAB BLOOD ORDERABLES [place] [address] * (ABNORMAL) Vitamin D 25 hydroxy (10/18/2022 10:46 AM CDT) Vitamin D 25-OH 23(L) 30 - 80 ng/mL [facility] Blood 10/18/2022 10:4 6 AM CDT 10/18/2022 1:02 PM CDT Eren Cr MD LAB BLOOD ORDERABLES Final Re sult Performing Organization Address [facility] Co de Phone Number [facility] [place] [address] * (ABNORMAL) Phosphorus (10/18/2022 10:46 AM CDT) Pathologist [facility] Phosphorus, pl 2.0(L) 2.3 - 4.5 mg/dL [facility] Comment:Testing performed by : [facility], [address] [place] [address] Blood 10/18/2022 10:4 6 AM CDT 10/18/2022 10:47 AM CDT Eren Cr MD LAB BLOOD ORDERABLES Final Re sult Performing Organization Address City/[facility]/[place] [address] * (ABNORMAL) Lipid panel (10/18/2022 10:46 AM CDT) Pathologist [facility] Cholesterol 154 30 - 199 mg/dL [facility] [...] revised on 2018. Triglycerides 175(H) <=149 mg/dL [facility] Comment: Interpretive [...] revised on 2018. HDL 62 >=40 mg/dL [facility] Comment: Interpretive Data Ages < [...] on 2018. LDL, calculated 57 <=129 mg/dL [facility] Comment: [...] revised on 2018. Non-HDL Cholesterol 92 mg/dL [facility] Comment: Interpretive Data Ages < [...] revised on 2018. Chol/HDL ratio 2 [facility] Blood 10/18/2022 10:4 6 AM CDT 10/18/2022 1:02 PM CDT us Eren Cr MD LAB BLOOD ORDERABLES Final Re sult Performing Organization Address City/[facility] Co de Phone Number [facility] [place] [address] * (ABNORMAL) PTH (10/18/2022 10:46 AM CDT) PTH 210(H) 15 - 65 pg/mL [facility] Blood 10/18/2022 10:4 6 AM CDT 10/18/2022 11:50 AM CDT us Eren Cr MD LAB BLOOD ORDERABLES Final Re sult Performing Organization Address [facility] de Phone Number [facility] [place] [address] documented in this encounter Visit Diagnoses Diagnosis 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
--- OUTSIDE RECORDS SUMMARY | 2024-06-26 02:01 | XMS_ITS | Encounter Summary ---
Author Organization [facility] Address [address] [place] [address] Phone Care Team Providers Care Borematic Machine Operator Name Role Phone Julio César Briseno MD Primary Care Provider Eren Cr MD Unavailable [phone] Yohana Bowen MD Unavailable Encounter Details Date Type Department Care Team (Late st Contact Info) Description 09/07/2022 Orders Only [facility] Oncology [address] [place] [address] Eren Cr MD [address] [place] [address] Neuro-endocrine carcinoma (CMS/HCC) (HCC) (Primary [...] file Legal Sex Female 2:41 PM EDITORIAL INTERN Gender Identity Not on file Sexual [...] blood documented in this encounter Care Teams Borematic Machine Operator Relationship Specialty Start Date End Date Julio César Briseno MD PCP - General 10/01/16 Eren Cr MD Referring Physician Medical Oncology 11/25/18 Yohana Bowen MD Radiation Oncologist Radiation Oncology 11/25/18 documented as of this encounter
--- OUTSIDE RECORDS SUMMARY | 2024-06-26 02:01 | XMS_ITS | Encounter Summary ---
Author Organization [facility] Address [address] [place] [address] Phone Care Team Providers Care Wind Projects Supervisor Name Role Phone Julio César Briseno MD Primary Care Provider Eren Cr MD Unavailable [phone] Yohana Bowen MD Unavailable Reason for Visit * Reason Onset Date Comments home infusion 09/14/2022 Encounter Details Date Type Department Care Team (Late st Contact Info) Description 09/14/2022 Telephone [facility] Oncology [address] [place] [address] Eren Cr MD [address] [place], [place] [id number] home infusion Social History Tobacco Use Types [...] on file Legal Sex Female 2:41 PM NEUROSCIENCE DIRECTOR NA Gender Identity Not on file Sexual Orientation Straight 02/19/2021 9: 29 AM CDT Occupation Industry Job Start Date Job End Date retired Not on file Not on file Not on file COVID-19 Exposure Response Date Recorded In the last 10 days, have yo u been in contact with someone who was confirmed or suspected to have Coronavirus/COVID-19? No / Unsure 09/12/2022 10:42 AM NEUROSCIENCE DIRECTOR NA documented as of this encounter Miscellaneous Notes * Telephone Encounter - Sola Heredia - 09/14/2022 10:15 AM CST Received call from IRVING Barker, home infusion requesting order for okay to teach patient/spouse how todisconnect IVF and deaccess and flush central line PAC following infusion of IVF. Verbal order given to teach patient and spouse disconnect and flush. OSCIENCE DIRECTOR NA documented in this encounter Plan of Treatment Not on file documented as of this encounter Visit Diagnoses Not on filedocumented in this encounter Care Teams Wind Projects Supervisor Relationship Specialty Start Date End Date Julio César Briseno MD PCP - General 10/01/16 Eren Cr MD Referring Physician Medical Oncology 11/25/18 Yohana Bowen MD Radiation Oncologist Radiation Oncology 11/25/18 documented as of this encounter
--- OUTSIDE RECORDS SUMMARY | 2024-06-26 02:01 | XMS_ITS | Encounter Summary ---
Author Organization [facility] Address [address] [place] [address] Phone Care Team Providers Care Thermoscrew Operator Name Role Phone Julio César Briseno MD Primary Care Provider Eren Cr MD Unavailable [phone] Yohana Bowen MD Unavailable Encounter Details Date Type Department Care Team (Late st Contact Info) Description 09/27/2022 Orders Only [facility] Oncology [address] [facility] 7th [place] [address] [place] [id number] Karen Martinez, [place] Social History Tobacco Use [...] file Legal Sex Female 2:41 PM PROJECT SURVEYOR Gender Identity Not on file Sexual [...] No / Unsure 09/12/2022 10:42 AM PROJECT SURVEYOR documented as of this encounter Plan of Treatment Not on file documented as of this encounter Visit Diagnoses Not on filedocumented in this encounter Care Teams Thermoscrew Operator Relationship Specialty Start Date End Date Julio César Briseno MD PCP - General 10/01/16 Eren Cr MD Referring Physician Medical Oncology 11/25/18 Yohana Bowen MD Radiation Oncologist Radiation Oncology 11/25/18 documented as of this encounter
--- OUTSIDE RECORDS SUMMARY | 2024-06-26 02:01 | XMS_ITS | Encounter Summary ---
Author Organization [facility] Address [address] [place] [address] Phone Care Team Providers Care Information Receptionist Name Role Phone Julio César Briseno MD Primary Care Provider [phone] Eren Cr MD Unavailable [phone] Yohana Bowen MD Unavailable Reason for Visit * Episode Based Medications (Routine) - Closed Specialty Diagnoses / Procedures Referred By Evelyne bowman Referred To Contact Diagnoses Neuro-endocrine carcinoma (HCC) Procedures study [id number] phase III cabozantinib Eren Cr MD [address] [facility] [address] [place] [address] Phone: tel: fax: [facility] [address] [facility] 7th [place] [address] Phone: tel: Referral ID Status Reason Start Date Expiration Date Visits Re quested Visits Authorized [id number] Closed 06/21/2021 06/26/2024 1 99 Encounter Details Date Type Department Care Team (Latest Contact Info) Description 08/07/2022 2:30 PM PRODUCTION CONSULTANT [facility] Pick-Up/CTRU [employer] [facility] Oncology [address] [place] [address] Neuro-endocrine carcinoma (CMS/HCC) (HCC) (Primary Dx) Social [...] on file Legal Sex Female 2:41 PM PRODUCTION CONSULTANT Gender Identity Not on file Sexual [...] Date First Ordered Date INV-[id number] cabozantinib/pl acebo (2017-08-122/[id number]) tablet 20 mg 1 08/07/2022 Nursing Count Last Ordered Date First Orde red Date ONCBCN STUDY COMMUNICATION 2 1 08/07/2022 ONCBCN TREATMENT PARAMETERS 1 1 08/07/2022 RESEARCH STUDY CLARIFICATION ORDER 1 2022 Appointment Requests Count Last Ordered Date Fi rst Ordered Date ONCBCN TAKE HOME STUDY DRUG APPT 1 08/07/19 23 documented in this encounter Care Teams Information Receptionist Relationship Specialty Start Date End Date Julio César Briseno MD PCP - General 10/01/16 Eren Cr MD Referring Physician Medical Oncology 11/25/18 Yohana Bowen MD Radiation Oncologist Radiation Oncology 11/25/18 documented as of this encounter
--- OUTSIDE RECORDS SUMMARY | 2024-06-26 02:01 | XMS_ITS | Encounter Summary ---
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) Procedures [place] OCTREOTIDE INJECTION, DEPOT Octreotide 28 Day Cycles - Carcinoid Eren Cr MD [address] [place] [address] Phone: tel: fax: [address] [address] Phone: tel: fax: Referral ID Status Reason Start Date Expiration Date V isits Requested Visits Authorized [id number] Authorized 11/28/2017 02/05/2025 1 150 Encounter Details Date Type Department Care Team (Late st Contact Info) Description 08/07/2022 2:00 PM HEAD BOYS TENNIS COACH Infusion [facility] Oncology [address] [place] [address] Neuroendocrine carcinoma (CMS/HCC) (HCC) (Primary Dx); Malignant [...] file Legal Sex Female 2:41 PM HEAD BOYS TENNIS COACH Gender Identity Not on file [...] First Orde red Date ONCBCN NURSING COMMUNICATION [id number] 08/07 Appointment Requests Count Last Ordered Date Fi rst Ordered Date ONCBCN INJECTION APPOINTMENT REQUEST 1 07/10 documented in this encounter Care Teams Machinist Job Setter Relationship Specialty Start Date End Date Julio César Briseno MD PCP - General 10/01/16 Eren Cr MD Referring Physician Medical Oncology 11/25/18 Yohana Bowen MD Radiation Oncologist Radiation Oncology 11/25/18 documented as of this encounter
--- OUTSIDE RECORDS SUMMARY | 2024-06-26 02:01 | XMS_ITS | Encounter Summary ---
Author Organization [facility] Address [address] [place] [address] Phone Care Team Providers Care Switchboard Installer Name Role Phone Julio César Briseno MD Primary Care Provider [phone] Eren Cr MD Unavailable [phone] Yohana Bowen MD Unavailable Encounter Details Date Type Department Care Team (Late st Contact Info) Description 09/12/2022 Orders Only [facility] Oncology [address] [place] [address] Eren Cr MD [address] [place] [address] Neuro-endocrine carcinoma (CMS/HCC) (HCC) (Primary [...] file Legal Sex Female 2:41 PM HAND MARKER Gender Identity Not on file Sexual Orientation [...] Dehydration documented in this encounter Care Teams Switchboard Installer Relationship Specialty Start Date End Date Julio César Briseno MD PCP - General 10/01/16 Eren Cr MD Referring Physician Medical Oncology 11/25/18 Yohana Bowen MD Radiation Oncologist Radiation Oncology 11/25/18 documented as of this encounter
--- OUTSIDE RECORDS SUMMARY | 2024-06-26 02:01 | XMS_ITS | Encounter Summary ---
Author Organization [facility] Care Team Providers Care Superintendent Marine Name Role Phone Julio César Briseno MD Primary Care Provider [phone] Eren Cr MD Unavailable [phone] Yohana Bowen MD Unavailable Encounter Details [...] on file Legal Sex Female 2:41 PM RECORD LABEL INTERNSHIP Gender Identity Not on file Sexual [...] Coronavirus/COVID-19? No / Unsure 09/12/2022 10:42 AM RECORD LABEL INTERNSHIP documented as of this encounter Plan of Treatment Not on file documented as of this encounter Visit Diagnoses Not on filedocumented in this encounter Care Teams Superintendent Marine Relationship Specialty Start Date End Date Julio César Briseno MD PCP - General 10/01/16 Eren Cr MD Referring Physician Medical Oncology 11/25/18 Yohana Bowen MD Radiation Oncologist Radiation Oncology 11/25/18 documented as of this encounter
--- OUTSIDE RECORDS SUMMARY | 2024-06-26 02:01 | XMS_ITS | Encounter Summary ---
Author Organization [facility] Address [address] [place] [address] Phone Care Team Providers Care Bench Jeweler Name Role Phone Julio César Briseno MD Primary Care Provider [phone] Eren Cr MD Unavailable [phone] Yohana Bowen MD Unavailable Encounter Details Date Type Department Care Team (Late st Contact Info) Description 08/30/2022 Orders Only [facility] Oncology [address] [place] [address] Eren Cr MD [address] [place], [place] [id number] Malignant neoplasm metastatic to liver (CMS/HCC) (HCC) [...] on file Legal Sex Female 2:41 PM QUILT MAKER Gender Identity Not on file Sexual [...] Primary documented in this encounter Care Teams Bench Jeweler Relationship Specialty Start Date End Date Julio César Briseno MD PCP - General 10/01/16 Eren Cr MD Referring Physician Medical Oncology 11/25/18 Yohana Bowen MD Radiation Oncologist Radiation Oncology 11/25/18 documented as of this encounter
--- OUTSIDE RECORDS SUMMARY | 2024-06-26 02:01 | XMS_ITS | Encounter Summary ---
Author Organization [facility] Address [address] [place] [address] Phone Care Team Providers Care Chip Applying Machine Tender Name Role Phone Julio César Briseno MD Primary Care Provider Eren Cr MD Unavailable [phone] Yohana Bowen MD Unavailable Encounter Details Date Type Department Care Team (Late st Contact Info) Description 09/27/2022 [address] [facility] Oncology [facility] 7th [place] [address] [place] [address] Karen Martinez, [place] Social History [...] on file Legal Sex Female 2:41 PM HEALTHCARE INTERPRETER Gender Identity Not on file Sexual [...] Coronavirus/COVID-19? No / Unsure 09/12/2022 10:42 AM HEALTHCARE INTERPRETER documented as of this encounter Miscellaneous Notes * Telephone Encounter - Karen Martinez RN - 09/27/2022 9:27 AM CDT Advised patient taking tessalon pearls is fine but getting paxlovid is not ok with clinical trial. Patient verbalized understanding. documented in this encounter Plan of Treatment Not on file documented as of this encounter Visit Diagnoses Not on filedocumented in this encounter Care Teams Chip Applying Machine Tender Relationship Specialty Start Date End Date Julio César Briseno MD PCP - General 10/01/16 Eren Cr MD Referring Physician Medical Oncology 11/25/18 Yohana Bowen MD Radiation Oncologist Radiation Oncology 11/25/18 documented as of this encounter
--- OUTSIDE RECORDS SUMMARY | 2024-06-26 02:01 | XMS_ITS | Encounter Summary ---
Author Organization [facility] Home Care Serv[facility] es Address [address] [place] [address] Phone Care Team Providers Care Guest Services Associate Name Role Phone Julio César Briseno MD Primary Care Provider [phone] Eren Cr MD Unavailable Yohana Bowen MD Unavailable Reason for Visit * Reason Comments Weakness - Generalized Encounter Details Date Type Department Care Team (Late st Contact Info) Description 09/30/2022 12:15 PM CDT Home Care Visit [facility] [address] [place] [address] Priti Joya, RN SN HOME [...] file Legal Sex Female 2:41 PM MILL WORK Gender Identity Not on file Sexual Orientation Straight 02/19/2021 9: 29 AM CDT Occupation Industry Job Start Date Job End Date retired Not on file Not on file Not on file COVID-19 Exposure Response Date Recorded In the last 10 days, have gus engel been in contact with someone who was confirmed or suspected to have Coronavirus/COVID-19? No / Unsure 09/12/2022 10:42 AM MILL WORK documented as of this encounter Last Filed [...] Halfway Safety needs related to infusion administration 09/13/2022 [...] visit Disciplines: SN, PT, OT, MALWARE ANALYST, OIL PUMPER, Skilled Disciplines Monitor patient's vital signs every [...] during episode of care Description: Home toll service observer to measure vital signs during every home [...] Scheduled documented in this encounter Care Teams Guest Services Associate Relationship Specialty Start Date End Date Julio César Briseno MD PCP - General 10/01/16 Eren Cr MD Referring Physician Medical Oncology 11/25/18 Yohana Bowen MD Radiation Oncologist Radiation Oncology 11/25/18 documented as of this encounter
--- OUTSIDE RECORDS SUMMARY | 2024-06-26 02:01 | XMS_ITS | Encounter Summary ---
Author Organization [facility] Home Care Servic es Address [address] [place] [address] Phone Care Team Providers Care Senior Product Development Manager Name Role Phone Julio César Briseno MD Primary Care Provider [phone] Eren Cr MD Unavailable [phone] Yohana Bowen MD Unavailable Encounter Details Date Type Department Care Team (Late st Contact Info) Description 09/19/2022 3:00 PM CDT Home Care Visit [facility] [address] [place] [address] Mj Lima, [place] SN HOME [...] on file Legal Sex Female 2:41 PM CARDIOPULMONARY SUPERVISOR Gender Identity Not on file Sexual [...] Coronavirus/COVID-19? No / Unsure 09/12/2022 10:42 AM CARDIOPULMONARY SUPERVISOR documented as of this encounter Last [...] good understanding of aseptic technique as per [facility] Home Care Infusion protocols. (Alejo) to de-access [...] home health visit Disciplines: SN, PT, OT, TOW DRIVER, DIRECTOR CUSTOMER, Skilled Disciplines Monitor patient's vital signs every [...] visit during episode of care Description: Home slide machine tender to measure vital signs during every [...] include good handwashing, aseptic technique as per [facility] Home Infusion Policies and Procedures, and troubleshooting/manag ement. Instruct on IV flush Description: Instruct patient/caregiver in how to perform flushing of IV line according to MD orders or protocol. Problem:Learning/Teac soco Needs - IV Therapy Completed Pt verbalizes good understanding of IV flush procedure using aseptic technique as per [facility] Infusion policy. Instruct Infection Prevention Description: [...] this encounter Care Teams Senior Product Development Manager Relationship Specialty Start Date End Date Julio César Briseno MD PCP - General 10/01/16 Eren Cr MD Referring Physician Medical Oncology 11/25/18 Yohana Bowen MD Radiation Oncologist Radiation Oncology 11/25/18 documented as of this encounter
--- OUTSIDE RECORDS SUMMARY | 2024-06-26 02:01 | XMS_ITS | Encounter Summary ---
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) Procedures IR Contrast Injection Evaluation Central Venous Access Device Consult to Interventional Radiology Eren Cr MD [address] [facility] [address] [place] [address] Phone: tel: fax: [address] [address] Referral ID Status Reason Start Date Expiration Date Visits Re quested Visits Authorized [id number] Closed 08/30/2022 09/29/2023 1 1 Encounter Details Date Type Department Care Team (Latest Contact Info) Description 09/04/2022 6:51 AM CREW TRAINER - 09/04/2022 11:59 PM CREW TRAINER Hospital Encounter [facility] Radiology [address] [address] Malignant neoplasm metastatic to liver [...] on file Legal Sex Female 2:41 PM CREW TRAINER Gender Identity Not on file Sexual Orientation Straight 02/19/2021 9: 29 AM CDT Occupation Industry Job Start Date Job End Date retired Not on file Not on file Not on file documented as of this encounter Last Filed Vital Signs Vital Sign Reading Time Taken Comments Blood Pressure 139/56 09/04/2022 8:26 AM CREW TRAINER Pulse 60 09/04/2022 8:26 AM CREW TRAINER Temperature 36.3 ??C (97.3 ??F) 09/04/2022 8:26 AM CS T Respiratory Rate 18 09/04/2022 8:26 AM CREW TRAINER Oxygen Saturation 100% 09/04/2022 8:26 AM CREW TRAINER Inhaled Oxygen Concentration - - Weight - - Height - - Body Mass Index - - documented in this encounter Discharge Instructions * Discharge Instructions* Sonia Horton RN - 09/04/2022 8:24 AM CREW TRAINER Interventional Radiology Outpatient Discharge Instructions/Note Diagnosis: neuroendocrine [...] (date). To contact an Interventional Radiologist at [facility] call [phone] Saturday through Saturday from 7:30am-4:30pm. At all other times call [phone] and ask that the Interventional Radiologist be paged. To contact an Interventional Radiologist at [facility] call [phone] Saturday through Saturday from 7:30am-3:30pm. Special instructions: Please call Interventional Radiology for any procedure related questions or problems including: Extreme swelling or bruising at the site. Unusual drainage or bleeding from procedure site. Fever of 101.5 F for more than 24 hours. Severe procedure related pain. TRAINER TRAINER documented in this encounter Medications at Time [...] capsuleIndicatio ns:supplement Take 1 tablet by mouth manager of care before breakfast 07/04/2016 4 cholecalciferol (VITAMIN D-3) 2,000 unit capsule Take 1 capsule (2,000 Units total) by mouth daily 30 capsule 2 04/25/2019 3 clotrimazole-bet amethasone (LOTRISONE) cream Apply 1 Application topically daily as needed (rash) 4 coenzyme [id number] 100-5 mg-unit capsuleIndicatio ns:supplement Take 1 tablet by mouth manager of care before breakfast 4 diphenoxylate-at ropine (LOMOTIL) 2.5-0.025 [...] dose).?? Avoid Jas's Wort, grapefruit products and [place] oranges while on treatment. placed on hold 09/26/22 for covid 01/29/2022 4 levothyroxine (SYNTHROID) 88 mcg tabletIndication s:Hypothyroidism due to medication TAKE 1 TABLET (88 MCG TOTAL) BY MOUTH INFORMATICA DEVELOPER BEFORE BREAKFAST 30 tablet 1 09/03/2022 3 [...] Soniya Flores PA - 09/04/2022 8:00 AM CREW TRAINER Radiology Brief Post Procedure Note Attending: Callie Mills M.D. Addresser: SERGEY Onofre Sedation/Anesthesia: None Pre-Op/Pre-Procedure Diagnosis: neuroendocrine, issues with blood return from port Post-Op/Post-Procedure Diagnosis: same Procedure Performed: port check Procedure Findings: Contrast injection reveals possible very small fibrin sheath. Brisk blood return with inspiration. Complications: None Estimated Blood Loss: None Specimens: None Condition: Stable Full report to follow. TRAINER * Pre-Procedure Note - Soniya Flores PA - 09/04/2022 8:00 AM CREW TRAINER Radiology Procedure Plan Indication: difficulty with blood return from port Planned Procedure: port check TRAINER documented in this encounter Plan of Treatment Not on file documented as of this encounter Procedures Procedure Name Priority Date/Time Associated Diagnosis Comments CONTRAST INJECTION EVALUATION CENTRAL VENOUS ACCESS DEVICE Schedule Routine, Read Routine (OP Routine) 09/04/2022 8:20 AM CREW TRAINER Malignant neoplasm metastatic to liver (CMS/HCC) (HCC) documented in this encounter Results * IR Contrast Injection Evaluation Central Venous Access Device (09/04/2022 8:20 AM CREW TRAINER) Anatomical Region Laterality Modality Body N/A X-Ray Angiograph y 09/04/2022 2:55 PM CREW TRAINER Impressions 09/04/2022 2:55 PM CREW TRAINER Appropriately functioning central venous catheter. PLAN: Port okay to use. May have intermittent issues with blood return, should resolve with flushing and patient inhalation. Patient is no longer receiving intravenous chemotherapy, only fluids, therefore would not recommend port replacement at this time. Electronically signed by: Soniya Richardson 09/04/2022 2:55 PM CREW TRAINER EXAMINATION: ??CENTRAL VENOUS CATHETER CHECK HISTORY/INDICATION: ??81-year-old female with history of neuroendocrine carcinoma referred for port evaluation due to difficulty with blood aspiration. Provider PRESENCE: Virginia Pal was present from the beginning to the end of the procedure. ?? SEDATION: ??No sedation. TECHNIQUE: ??The risks, benefits and alternatives were discussed and informed consent was obtained. Prior to beginning the procedure, [place] Protocol was performed to confirm the patient's [...] was obtained. Prior to beginning the procedure, [place] Protocol was performed to confirm the patient's [...] Indwelling Vascular Catheter Given 09/04/2022 8:20 AM CREW TRAINER 500 Units ioversoL (OPTIRAY 350) injection As needed, Starting on Sat09/04/22 at 0820, Intra-Op Given 09/04/2022 8:20 AM CREW TRAINER 15 mL documented in this encounter Orders Discharge Count Last Ordered Date First Orde red Date DISCHARGE PATIENT 1 09/04/2022 documented in this encounter Care Teams Riffler Tender Relationship Specialty Start Date End Date Julio César Briseno MD PCP - General 10/01/16 Eren Cr MD Referring Physician Medical Oncology 11/25/18 Yohana Bowen MD Radiation Oncologist Radiation Oncology 11/25/18 documented as of this encounter
--- OUTSIDE RECORDS SUMMARY | 2024-06-26 02:01 | XMS_ITS | Encounter Summary ---
Author Organization [facility] Home Care Servic es Address [address] [place] [address] Phone Care Team Providers Care Foster Parent Name Role Phone Julio César Briseno MD Primary Care Provider [phone] Erne Cr MD Unavailable [phone] Yohana Bowen MD Unavailable Encounter Details Date Type Department Care Team (Late st Contact Info) Description 09/13/2022 Home Care Visit [facility] [address] [place] [address] Mj Lima, [place] SBAR-START OF CARE/RESUMPTION [...] file Legal Sex Female 2:41 PM PARTS BACK COUNTER MAN Gender Identity Not on file Sexual [...] Coronavirus/COVID-19? No / Unsure 09/12/2022 10:42 AM PARTS BACK COUNTER MAN documented as of this encounter Plan of Treatment Not on file documented as of this encounter Visit Diagnoses Not on filedocumented in this encounter Care Teams Foster Parent Relationship Specialty Start Date End Date Julio César Briseno MD PCP - General 10/01/16 Eren Cr MD Referring Physician Medical Oncology 11/25/18 Yohana Bowen MD Radiation Oncologist Radiation Oncology 11/25/18 documented as of this encounter
--- OUTSIDE RECORDS SUMMARY | 2024-06-26 02:01 | XMS_ITS | Encounter Summary ---
Author Organization [facility] Address [address] [place] [address] Phone Care Team Providers Care Motion Picture Set Grip Name Role Phone Julio César Briseno MD Primary Care Provider [phone] Eren Wu MD Unavailable [phone] Yohana Bowen MD Unavailable Reason for Visit * Episode Based Medications (Routine) - Authorized Specialty Diagnoses / Procedures Referred By Evelyne t Referred To Contact Oncology Diagnoses Neuroendocrine carcinoma (HCC) Malignant neoplasm metastatic to liver (HCC) Procedures ID OCTREOTIDE INJECTION, DEPOT Octreotide 28 Day Cycles - Carcinoid Eren Wu MD [address] [facility] [address] [place] [address] Phone: tel: fax: [facility] [address] [address] Phone: tel: fax: Referral ID Status Reason Start Date Expiration Date V isits Requested Visits Authorized [id number] Authorized 11/28/2017 02/05/2025 1 150 Encounter Details Date Type Department Care Team (Late st Contact Info) Description 09/06/2022 1:45 PM XEROX MACHINE MECHANIC Office Visit [facility] [address] [place] [address] Eren Wu MD [address] [facility] [address] [place] [address] Neuro-endocrine carcinoma (CMS/HCC) (HCC) (Primary Dx); Bone [...] on file Legal Sex Female 2:41 PM XEROX MACHINE MECHANIC Gender Identity Not on file Sexual Orientation Straight 02/19/2021 9: 29 AM CDT Occupation Industry Job Start Date Job End Date retired Not on file Not on file Not on file documented as of this encounter Last Filed Vital Signs Vital Sign Reading Time Taken Comments Blood Pressure 127/74 09/06/2022 2:08 PM XEROX MACHINE MECHANIC Pulse 90 09/06/2022 2:08 PM XEROX MACHINE MECHANIC Temperature 36.6 ??C (97.8 ??F) 09/06/2022 2:08 PM CS T Respiratory Rate 18 09/06/2022 2:08 PM XEROX MACHINE MECHANIC Oxygen Saturation 99% 09/06/2022 2:08 PM XEROX MACHINE MECHANIC Inhaled Oxygen Concentration - - Weight 77.6 kg (171 lb) 09/06/2022 2:08 PM XEROX MACHINE MECHANIC Height - - Body Mass Index 30.29 [...] in the same OR by Dr. Greyson eReves. 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 NEURO: A&Ox4, senior cytogenetic technologist grossly intact by conversation, moving all extremities [...] Wu Jr., MD at 09/06/2022 5:01 PM XEROX MACHINE MECHANIC X MACHINE MECHANIC X MACHINE MECHANIC X MACHINE MECHANIC documented in this encounter Miscellaneous Notes * Addendum Note - Magali Morales NP - 09/06/2022 1:45 PM CSTAddended by: MAGALI MORALES on: 09/06/2022 04:28 PM Modules accepted: Orders X MACHINE MECHANIC * Addendum Note - Eren Wu Jr., MD - 09/06/2022 1:45 PM CSTAddended by: EREN WU on: 09/06/2022 04:31 PM Modules accepted: Orders X MACHINE MECHANIC documented in this encounter Plan of [...] 023 documented in this encounter Care Teams Motion Picture Set Grip Relationship Specialty Start Date End Date Julio César Briseno MD PCP - General 10/01/16 Eren Wu MD Referring Physician Medical Oncology 11/25/18 Yohana Bowen MD Radiation Oncologist Radiation Oncology 11/25/18 documented as of this encounter
--- OUTSIDE RECORDS SUMMARY | 2024-06-26 02:01 | XMS_ITS | Encounter Summary ---
Author Organization [facility] Address [address] [place] [address] Phone Care Team Providers Care Directory Assistance Operator Name Role Phone Julio César Briseno MD Primary Care Provider Eren Cr MD Unavailable [phone] Yohana Bowen MD Unavailable Encounter Details Date Type Department Care Team (Late st Contact Info) Description 09/06/2022 Orders Only [facility] [address] [facility] [place] [address] Eren Cr MD [address] [place] [address] Social History Tobacco Use Types [...] on file Legal Sex Female 2:41 PM TECHNOLOGIES DIVISION CHAIR Gender Identity Not on file Sexual Orientation Straight 02/19/2021 9: 29 AM CDT Occupation Industry Job Start Date Job End Date retired Not on file Not on file Not on file documented as of this encounter Plan of Treatment Not on file documented as of this encounter Visit Diagnoses Not on filedocumented in this encounter Care Teams Directory Assistance Operator Relationship Specialty Start Date End Date Julio César Briseno MD PCP - General 10/01/16 Eren Cr MD Referring Physician Medical Oncology 11/25/18 Yohana Bowen MD Radiation Oncologist Radiation Oncology 11/25/18 documented as of this encounter
--- OUTSIDE RECORDS SUMMARY | 2024-06-26 02:02 | XMS_ITS | Encounter Summary ---
Author Organization [facility] Address [address] [place] [address] Care Team Providers Care Resource Economist Name Role Phone Julio César Briseno MD Primary Care Provider [phone] Eren Cr MD Unavailable [phone] Yohana Bowen MD Unavailable Reason for Visit * Reason Comments hydration Encounter Details Date Type Department Care Team (Latest Contact Info) Description 07/26/2022 12:30 PM TORPEDO SPECIALIST - 07/26/2022 11:59 PM TORPEDO SPECIALIST Hospital Encounter [facility] Advanced Medicine ([facility]) [address] [place] [address] Eren Cr MD [facility] [address] [place] [address] Dehydration (Primary Dx); Neuro-endocrine carcinoma (CMS/HCC) (HCC); [...] on file Legal Sex Female 2:41 PM TORPEDO SPECIALIST Gender Identity Not on file Sexual Orientation Straight 02/19/2021 9: 29 AM CDT Occupation Industry Job Start Date Job End Date retired Not on file Not on file Not on file documented as of this encounter Last Filed Vital Signs Vital Sign Reading Time Taken Comments Blood Pressure 175/75 07/26/2022 3:22 PM TORPEDO SPECIALIST Pulse 64 07/26/2022 3:22 PM TORPEDO SPECIALIST Temperature 36.7 ??C (98.1 ??F) 07/26/2022 12:[address] Respiratory Rate 18 07/26/2022 12:39 PM TORPEDO SPECIALIST Oxygen Saturation 100% 07/26/2022 3:22 PM TORPEDO SPECIALIST Inhaled Oxygen Concentration - - Weight [...] ns:supplement Take 1 tablet by mouth manager environmental services before breakfast 07/04/2016 4 cholecalciferol (VITAMIN D-3) 2,000 unit capsule Take 1 capsule (2,000 Units total) by mouth daily 30 capsule 2 04/25/2019 3 clotrimazole-bet amethasone (LOTRISONE) cream Apply 1 Application topically daily as needed (rash) 4 coenzyme M00-[id number] E 100-5 mg-unit capsuleIndicatio ns:supplement Take 1 tablet by mouth manager environmental services before breakfast 4 diphenoxylate-at ropine (LOMOTIL) 2.5-0.025 [...] dose).?? Avoid Jas's Wort, grapefruit products and [place] oranges while on treatment. placed on hold 09/26/22 for covid 01/29/2022 4 levothyroxine (SYNTHROID) 88 mcg tabletIndication s:Hypothyroidism due to medication TAKE 1 TABLET (88 MCG TOTAL) BY MOUTH EDGING MACHINE CATCHER BEFORE BREAKFAST 30 tablet 1 07/03/2022 3 [...] 12:30 PM CST Pt presented to the [facility] for hydration. VS WNL. PAC accessed. Blood return sluggish, flushes easily.Administered 1L NS. Pt complained of nausea, administered Zofran. Pt tolerated well. BP increased, all other VS WNL. Educated pt and spouse to re-check BP at home after she has been able to relax. PAC flushed, heparinized, and discontinued. Pt ambulatory and discharged home accompanied by her . EDO SPECIALIST documented in this encounter Plan of [...] euroendocrine carcinoma (HCC) Given 07/26/2022 3:12 PM TORPEDO SPECIALIST 500 Units ondansetron (ZOFRAN) injection 8 mg 8 mg, intravenous, Administer over 2 Minutes, Once as needed, nausea, vomiting, Starting on Lydia 07/26/22 at 1416, For 1 doseIndications:Hypophosphate jaycee Given 07/26/2022 2:18 PM TORPEDO SPECIALIST 8 mg sodium chloride 0.9% bolus 1,000 mL 1,000 mL, intravenous, at 500 mL/hr, Administer over 2 Hours, Once, On Lydia 07/26/22 at 1310, For 1 doseIndications:Dehydration,N euroendocrine carcinoma (HCC) New Bag 07/26/2022 1:10 PM TORPEDO SPECIALIST 1,000 mL 500 mL/hr documented in this [...] 07/26/2022 documented in this encounter Care Teams Resource Economist Relationship Specialty Start Date End Date Julio César Briseno MD PCP - General 10/01/16 Eren Cr MD Referring Physician Medical Oncology 11/25/18 Yohana Bowen MD Radiation Oncologist Radiation Oncology 11/25/18 documented as of this encounter
--- OUTSIDE RECORDS SUMMARY | 2024-06-26 02:02 | XMS_ITS | Encounter Summary ---
Author Organization [facility] Address [address] [place] [address] Phone Care Team Providers Care Heavy Equipment Rental Manager Name Role Phone Julio César Briseno MD Primary Care Provider Eren Cr MD Unavailable [phone] Yohana Bowen MD Unavailable Encounter Details Date Type Department Care Team (Late st Contact Info) Description 07/12/2022 Orders Only [facility] Oncology [address] [place] [address] Eren Cr MD [address] [place], [place] [id number] Social History Tobacco Use Types Packs/Day Years [...] on file Legal Sex Female 2:41 PM COMPOSING ROOM SUPERVISOR Gender Identity Not on file Sexual Orientation Straight 02/19/2021 9: 29 AM CDT Occupation Industry Job Start Date Job End Date retired Not on file Not on file Not on file documented as of this encounter Plan of Treatment Not on file documented as of this encounter Visit Diagnoses Not on filedocumented in this encounter Care Teams Heavy Equipment Rental Manager Relationship Specialty Start Date End Date Julio César Briseno MD PCP - General 10/01/16 Eren Cr MD Referring Physician Medical Oncology 11/25/18 Yohana Bowen MD Radiation Oncologist Radiation Oncology 11/25/18 documented as of this encounter
--- OUTSIDE RECORDS SUMMARY | 2024-06-26 02:02 | XMS_ITS | Encounter Summary ---
Author Organization [facility] Healthcare Address [address] [place] [address] Care Team Providers Care President Finance Company Name Role Phone Julio César Briseno MD Primary Care Provider [phone] Eren Cr MD Unavailable [phone] Yohana Bowen MD Unavailable Encounter Details Date Type Department Care Team (Latest Contact Info) Description 08/07/2022 8:16 AM MARITIME PILOT - 08/07/2022 11:59 PM MARITIME PILOT Hospital Encounter [address] [address] Neuroendocrine carcinoma (CMS/HCC) (HCC); Malignant neoplasm metastatic [...] on file Legal Sex Female 2:41 PM MARITIME PILOT Gender Identity Not on file Sexual [...] capsuleIndicatio ns:supplement Take 1 tablet by mouth dormitory counselor before breakfast 07/04/2016 4 cholecalciferol (VITAMIN D-3) 2,000 unit capsule Take 1 capsule (2,000 Units total) by mouth daily 30 capsule 2 04/25/2019 3 clotrimazole-bet amethasone (LOTRISONE) cream Apply 1 Application topically daily as needed (rash) 4 coenzyme [id number] 100-5 mg-unit capsuleIndicatio ns:supplement Take 1 tablet by mouth dormitory counselor before breakfast 4 diphenoxylate-at ropine (LOMOTIL) 2.5-0.025 [...] dose).?? Avoid Jas's Wort, grapefruit products and [place] oranges while on treatment. 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) CBC WITH AUTO DIFFERENTIAL STAT 08/07/2022 10:48 AM MARITIME PILOT Neuro-endocrine carcinoma (CMS/HCC) (HCC) VITAMIN D 25 HYDROXY Routine 08/07/2022 10:48 AM MARITIME PILOT 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) PHOSPHORUS Routine 08/07/2022 10:48 AM MARITIME PILOT 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 73 [...] reviewed 2021. Blood 08/07/2022 10:4 8 AM MARITIME PILOT 08/07/2022 10:50 AM MARITIME PILOT us Eren Cr MD LAB BLOOD ORDERABLES Final Re sult [facility] [place] [address] * (ABNORMAL) Differential, auto (08/07/2022 10:48 AM MARITIME PILOT) Neutrophil abs 2.1 1.7 - 6.5 K/cumm [facility] Comment:Testing performed by : [facility], [address] [facility] [address] Imm gran abs 0.0 0.0 - 0.1 K/cumm [facility] Lymphocyte abs 0.7(L) 0.8 - 3.3 K/cumm [facility] Monocyte abs 0.4 0.2 - 0.8 K/cumm [facility] Eosinophil abs 0.2 0.0 - 0.5 K/cumm [facility] Basophil abs 0.0 0.0 - 0.1 K/cumm [facility] Neutrophil pct 62.0 % [facility] Comment: Interpretive Data Percent cell count reference ranges are not reported, since discordance with absolute values may lead to misinterpretation of CBC data. Current Interpretive Data was last revised on 2017. Imm gran pct 0.3 % [facility] Comment: Interpretive Data Percent cell count reference ranges are not reported, since discordance with absolute values may lead to misinterpretation of CBC data. Current Interpretive Data was last revised on 2017. Lymphocyte pct 19.6 % [facility] Comment: Interpretive Data Percent cell count reference ranges are not reported, since discordance with absolute values may lead to misinterpretation of CBC data. Current Interpretive Data was last revised on 2017. Monocyte pct 10.7 % [facility] Comment: Interpretive Data Percent cell count reference ranges are not reported, since discordance with absolute values may lead to misinterpretation of CBC data. Current Interpretive Data was last revised on 2017. Eosinophil pct 6.8 % [facility] Comment: Interpretive Data Percent cell count reference ranges are not reported, since discordance with absolute values may lead to misinterpretation of CBC data. Current Interpretive Data was last revised on 2017. Basophil pct 0.6 % [facility] Comment: Interpretive Data Percent cell count reference ranges are not reported, since discordance with absolute values may lead to misinterpretation of CBC data. Current Interpretive Data was last revised on 2017. Blood 08/07/2022 10:4 8 AM MARITIME PILOT 08/07/2022 10:50 AM MARITIME PILOT Eren Cr MD LAB BLOOD ORDERABLES Final Re sult [facility] Department [place] [address] * (ABNORMAL) CBC with auto differential (08/07/2022 10:48 AM MARITIME PILOT) WBC 3.4(L) 3.8 - 9.9 K/cumm [facility] Comment:Testing performed by : [address] [address] Hgb 11.9 11.9 - 15.5 g/dL [facility] Comment:Testing performed by : [address] [address] Hct 35.7 35.6 - 45.5 % [facility] Comment:Testing performed by : [address] [address] Plt 100(L) 150 - 400 K/cumm [facility] Comment:Testing performed by : [address] [address] MPV 10.4 9.1 - 12.3 fL [facility] RBC 3.59(L) 3.90 - 5.20 M/cumm [facility] MCV 99.4(H) 81.3 - 96.4 fL [facility] MCH 33.1 27.1 - 33.3 pg [facility] MCHC 33.3 32.3 - 35.7 g/dL [facility] RDW CV 13.9 11.1 - 14.9 % [facility] RDW SD 50.5(H) 35.7 - 48.1 fL [facility] NRBC abs 0.00 0.00 - 0.01 K/cumm [facility] Blood 08/07/2022 10:4 8 AM MARITIME PILOT 08/07/2022 10:50 AM MARITIME PILOT us Eren Cr MD LAB BLOOD ORDERABLES Final Re sult [facility] Department [place] [address] * (ABNORMAL) Comprehensive metabolic panel (08/07/2022 10:48 AM MARITIME PILOT) Sodium 141 135 - 145 mmol/L [facility] Comment:Testing performed by : [facility], [address] [place] [address] Potassium, pl 4.2 3.3 - 4.9 mmol/L [facility] Chloride 107 97 - 110 mmol/L [facility] CO2 28 22 - 32 mmol/L [facility] Anion gap 6 2 - 15 mmol/L [facility] BUN 20 8 - 25 mg/dL [facility] Creatinine 1.46(H) 0.60 - 1.10 mg/dL [facility] Glucose 132 70 - 199 mg/dL [facility] Calcium 9.8 8.5 - 10.3 mg/dL [facility] Bilirubin, total 0.6 0.1 - 1.2 mg/dL [facility] Protein, pl 6.5 6.5 - 8.5 g/dL [facility] Albumin 4.0 3.5 - 5.0 g/dL [facility] Alk phos 63 40 - 130 Units/L [facility] ALT 24 7 - 45 Units/L [facility] AST 34 10 - 45 Units/L [facility] Blood 08/07/2022 10:4 8 AM MARITIME PILOT 08/07/2022 10:50 AM MARITIME PILOT Eren Cr MD LAB BLOOD ORDERABLES Final Re sult Performing Organization Address [facility] de Phone Number [facility] Department [place] [address] * Magnesium (08/07/2022 10:48 AM MARITIME PILOT) Magnesium 1.4 1.4 - 2.5 mg/dL [facility] Comment:Testing performed by : [address] [address] Blood 08/07/2022 10:4 8 AM MARITIME PILOT 08/07/2022 10:50 AM MARITIME PILOT Eren Cr MD LAB BLOOD ORDERABLES Final Re sult Performing Organization Address [facility] de Phone Number [facility] Department [place] [address] * (ABNORMAL) Lipid panel (08/07/2022 10:48 AM MARITIME PILOT) Cholesterol 178 30 - 199 mg/dL [facility] Comment: Interpretive Data Ages < or [...] revised on 2018. Triglycerides 229(H) <=149 mg/dL [facility] Comment: Interpretive Data Ages < or [...] revised on 2018. HDL 57 >=40 mg/dL [facility] Comment: Interpretive Data Ages < or [...] on 2018. LDL, calculated 75 <=129 mg/dL [facility] Comment: Interpretive Data Ages < or [...] revised on 2018. Non-HDL Cholesterol 121 mg/dL [facility] Comment: Interpretive Data Ages < or [...] on 2018. Chol/HDL ratio 3 [facility] Blood 08/07/2022 10:4 8 AM MARITIME PILOT 08/07/2022 11:56 AM MARITIME PILOT Eren Cr MD LAB BLOOD ORDERABLES Final Re sult [facility] Department [place] [address] * (ABNORMAL) Phosphorus (08/07/2022 10:48 AM MARITIME PILOT) Phosphorus, pl 2.0(L) 2.3 - 4.5 mg/dL [facility] Comment:Testing performed by : [facility], [address] [place] [id number] Blood 08/07/2022 10:4 8 AM MARITIME PILOT 08/07/2022 10:50 AM MARITIME PILOT Eren Cr MD LAB BLOOD ORDERABLES Final Re sult [facility] [place] [address] * (ABNORMAL) Vitamin D 25 hydroxy (08/07/2022 10:48 AM MARITIME PILOT) Vitamin D 25-OH 24(L) 30 - 80 ng/mL [facility] Blood 08/07/2022 10:4 8 AM MARITIME PILOT 08/07/2022 11:56 AM MARITIME PILOT Eren Cr MD LAB BLOOD ORDERABLES Final Re sult Performing Organization Address [facility] Co de Phone Number [facility] [place] [address] * (ABNORMAL) Chromogranin A (08/07/2022 10:48 AM MARITIME PILOT) Chromogranin A 1094(H) <93 ng/mL [facility] Comment: [...] a homogeneous time-resolved immunofluorescent assay manufactured by [employer] and performed on the [employer] Kryptor Compact Plus. ? Values obtained with different assay methods or kits may be different and cannot be used interchangeably. ? Test results cannot be interpreted as absolute evidence for the presence or absence of malignant disease. Test Performed by: [facility] [address] [place] [address] [employer] Project Manager: Immanuel Novak M.D. Ph.D.; CLIA# [id number] Blood 08/07/2022 10:4 8 AM MARITIME PILOT 08/07/2022 1:07 PM MARITIME PILOT us Eren Cr MD LAB BLOOD ORDERABLES Final Re sult [facility] Department [place] [address] documented in this encounter Visit Diagnoses Diagnosis Neuroendocrine carcinoma (HCC) Other malignant neoplasm of unspecified site Malignant neoplasm metastatic to liver (HCC) Neuro-endocrine carcinoma (HCC) Other malignant neoplasm of unspecified site documented in this encounter Care Teams President Finance Company Relationship Specialty Start Date End Date Julio César Briseno MD PCP - General 10/01/16 Eren Cr MD Referring Physician Medical Oncology 11/25/18 Yohana Bowen MD Radiation Oncologist Radiation Oncology 11/25/18 documented as of this encounter
--- OUTSIDE RECORDS SUMMARY | 2024-06-26 02:02 | XMS_ITS | Encounter Summary ---
Author Organization [facility] Address [address] [place] [address] Phone Care Team Providers Care Breeder Hen Service Technician Name Role Phone Julio César Briseno MD Primary Care Provider [phone] Eren Cr MD Unavailable [phone] Yohana Bowen MD Unavailable Reason for Visit * Episode Based Medications (Routine) - Closed Specialty Diagnoses / Procedures Referred By Evelyne bowman Referred To Contact Diagnoses Neuro-endocrine carcinoma (HCC) Procedures study [id number] phase III cabozantinib Eren Cr MD [address] [facility] [address] [place] [address] Phone: tel: fax: [facility] [address] [facility] Advanced Medicine 7th [place] [address] Phone: tel: Referral ID Status Reason Start Date Expiration Date Visits Re quested Visits Authorized [id number] Closed 06/21/2021 06/26/2024 1 99 Encounter Details Date Type Department Care Team (Latest Contact Info) Description 08/07/2022 10:45 AM DRAG OUT MAN Clinical Support [facility] [address] [place] [address] Neuro-endocrine carcinoma (CMS/HCC) (HCC) Social History Tobacco [...] on file Legal Sex Female 2:41 PM DRAG OUT MAN Gender Identity Not on file Sexual [...] 08/07/2022 documented in this encounter Care Teams Breeder Hen Service Technician Relationship Specialty Start Date End Date Julio César Briseno MD PCP - General 10/01/16 Eren Cr MD Referring Physician Medical Oncology 11/25/18 Yohana Bowen MD Radiation Oncologist Radiation Oncology 11/25/18 documented as of this encounter
--- OUTSIDE RECORDS SUMMARY | 2024-06-26 02:02 | XMS_ITS | Encounter Summary ---
Author Organization [facility] Address [address] [place] [address] Phone Care Team Providers Care Weatherseal Technician Name Role Phone Julio César Briseno MD Primary Care Provider [phone] Eren Cr MD Unavailable [phone] Yohana Bowen MD Unavailable Reason for Visit * Episode Based Medications (Routine) - Closed Specialty Diagnoses / Procedures Referred By Evelyne bowman Referred To Contact Diagnoses Neuro-endocrine carcinoma (HCC) Procedures study [id number] phase III cabozantinib Eren Cr MD [address] [facility] [address] [place] [address] Phone: tel: fax: [facility] at [facility] and [facility] [address] [facility] Advanced Medicine 7th [place] [address] Phone: tel: Referral ID Status Reason Start Date Expiration Date Visits Re quested Visits Authorized [id number] Closed 06/21/2021 06/26/2024 1 99 Encounter Details Date Type Department Care Team (Late st Contact Info) Description 08/07/2022 11:15 AM GROUNDS MANAGER Office Visit [facility] Oncology [address] [place] [address] Eren Cr MD [address] [facility] [address] [place] [address] Neuro-endocrine carcinoma (CMS/HCC) (HCC) (Primary Dx); Malignant [...] on file Legal Sex Female 2:41 PM GROUNDS MANAGER Gender Identity Not on file Sexual Orientation Straight 02/19/2021 9: 29 AM CDT Occupation Industry Job Start Date Job End Date retired Not on file Not on file Not on file documented as of this encounter Last Filed Vital Signs Vital Sign Reading Time Taken Comments Blood Pressure 129/72 08/07/2022 11:56 AM GROUNDS MANAGER Pulse 78 08/07/2022 11:56 AM GROUNDS MANAGER Temperature 36.3 ??C (97.3 ??F) 08/07/2022 11:[address] Respiratory Rate 16 08/07/2022 11:56 AM GROUNDS MANAGER Oxygen Saturation 96% 08/07/2022 11:56 AM GROUNDS MANAGER Inhaled Oxygen Concentration - - Weight 77.4 kg (170 lb 9.6 oz) 08/07/2022 11:56 AM GROUNDS MANAGER Height - - Body Mass Index 30.22 [...] rashes over exposed skin. . NEURO: A&Ox4, pathology technologist grossly intact by conversation, moving all [...] the Problem List Disease Status Documentation for [facility] Neoplastic Disease Neuroendocrine [...] assessment: 07/12/22 Cancer [facility]: No change in treatment plan NDS MANAGER documented in this encounter Plan of Treatment Not on file documented as of this encounter Results * Magnesium (09/06/2022 1:57 PM GROUNDS MANAGER) Magnesium 1.4 1.4 - 2.5 mg/dL [facility] Comment:Testing performed by : [facility], [address] [place] [address] Blood 09/06/2022 1:57 PM GROUNDS MANAGER 09/06/2022 1:59 PM GROUNDS MANAGER us Eren Cr MD LAB BLOOD ORDERABLES Final Re sult [facility] One [facility] Department [place] [address] * (ABNORMAL) Chromogranin A (09/06/2022 1:57 PM GROUNDS MANAGER) Chromogranin A 1202(H) <93 ng/mL [facility] [...] a homogeneous time-resolved immunofluorescent assay manufactured by [employer] and performed on the [employer] KrTriLogic Pharmaor Compact Plus. ? Values obtained with different assay methods or kits may be different and cannot be used interchangeably. ? Test results cannot be interpreted as absolute evidence for the presence or absence of malignant disease. Test Performed by: [facility] [address] [place] [address] Medical Intern: Immanuel Novak M.D. Ph.D.; CLIA# [id number] Blood 09/06/2022 1:57 PM GROUNDS MANAGER 09/06/2022 6:00 PM GROUNDS MANAGER Eren Cr MD LAB BLOOD ORDERABLES Final Re sult [facility] One [facility] Department [place] [address] * (ABNORMAL) Comprehensive metabolic panel (09/06/2022 1:57 PM GROUNDS MANAGER) Pathologist [facility] Sodium 139 135 - 145 mmol/L [facility] Comment:Testing performed by : [facility], [address] [place] [address] Potassium, pl 4.4 3.3 - 4.9 mmol/L [facility] Chloride 108 97 - 110 mmol/L [facility] CO2 26 22 - 32 mmol/L [facility] Anion gap 5 2 - 15 mmol/L [facility] BUN 21 8 - 25 mg/dL [facility] Creatinine 1.59(H) 0.60 - 1.10 mg/dL [facility] Glucose 81 70 - 199 mg/dL [facility] Comment: Interpretive Data Fasting [...] 2022. Calcium 10.1 8.5 - 10.3 mg/dL [facility] Bilirubin, total 0.4 0.1 - 1.2 mg/dL [facility] Protein, pl 6.5 6.5 - 8.5 g/dL [facility] Albumin 4.0 3.5 - 5.0 g/dL [facility] Alk phos 65 40 - 130 Units/L [facility] ALT 24 7 - 45 Units/L [facility] AST 33 10 - 45 Units/L [facility] Blood 09/06/2022 1:57 PM GROUNDS MANAGER 09/06/2022 1:59 PM GROUNDS MANAGER Eren Cr MD LAB BLOOD ORDERABLES Final Re sult [facility] One [facility] [place] [address] * (ABNORMAL) CBC with auto differential (09/06/2022 1:57 PM GROUNDS MANAGER) Pathologist [facility] WBC 4.0 3.8 - 9.9 K/cumm [facility] Comment:Testing performed by : [address] [address] Hgb 11.3(L) 11.9 - 15.5 g/dL [facility] Comment:Testing performed by : [address] [address] Hct 33.2(L) 35.6 - 45.5 % [facility] Comment:Testing performed by : [address] [address] Plt 102(L) 150 - 400 K/cumm [facility] Comment:Testing performed by : [address] [address] MPV 10.3 9.1 - 12.3 fL [facility] RBC 3.41(L) 3.90 - 5.20 M/cumm [facility] MCV 97.4(H) 81.3 - 96.4 fL [facility] MCH 33.1 27.1 - 33.3 pg [facility] MCHC 34.0 32.3 - 35.7 g/dL [facility] RDW CV 13.8 11.1 - 14.9 % [facility] RDW SD 48.6(H) 35.7 - 48.1 fL [facility] NRBC abs 0.00 0.00 - 0.01 K/cumm [facility] Blood 09/06/2022 1:57 PM GROUNDS MANAGER 09/06/2022 1:59 PM GROUNDS MANAGER Eren Cr MD LAB BLOOD ORDERABLES Final Re sult Performing Organization Address City/[facility]/ZIP Co de Phone Number [facility] [place] [address] * (ABNORMAL) Vitamin D 25 hydroxy (09/06/2022 1:57 PM GROUNDS MANAGER) Pathologist [facility] Vitamin D 25-OH 21(L) 30 - 80 ng/mL [facility] Blood 09/06/2022 1:57 PM GROUNDS MANAGER 09/06/2022 5:54 PM GROUNDS MANAGER Eren Cr MD LAB BLOOD ORDERABLES Final Re sult Performing Organization Address [facility] Co de Phone Number [facility] [place] [address] * Phosphorus (09/06/2022 1:57 PM GROUNDS MANAGER) [facility] Phosphorus, pl 2.5 2.3 - 4.5 mg/dL [facility] Comment:Testing performed by : [facility], [address] [place] [address] Blood 09/06/2022 1:57 PM GROUNDS MANAGER 09/06/2022 1:59 PM GROUNDS MANAGER Eren Cr MD LAB BLOOD ORDERABLES Final Re sult Performing Organization Address [facility] Co de Phone Number [place], [place] [phone] * (ABNORMAL) Lipid panel (09/06/2022 1:57 PM GROUNDS MANAGER) Cholesterol 172 30 - 199 mg/dL [facility] Comment: Interpretive Data Ages [...] revised on 2018. Triglycerides 281(H) <=149 mg/dL [facility] Comment: Interpretive Data Ages [...] revised on 2018. HDL 52 >=40 mg/dL [facility] Comment: Interpretive Data Ages < or [...] on 2018. LDL, calculated 64 <=129 mg/dL [facility] Comment: Interpretive Data Ages [...] revised on 2018. Non-HDL Cholesterol 120 mg/dL [facility] Comment: Interpretive Data Ages [...] last revised on 2018. Chol/HDL ratio 3 [facility] Blood 09/06/2022 1:57 PM GROUNDS MANAGER 09/06/2022 5:54 PM GROUNDS MANAGER Eren Cr MD LAB BLOOD ORDERABLES Final Re sult Performing Organization Address [facility] de Phone Number [facility] Department [place] [address] * Protein / creatinine ratio, urine, random (09/06/2022 1:55 PM GROUNDS MANAGER) Protein, ur, quant 15.9 mg/dL [facility] Comment: Interpretive Data No reference range established. Current interpretive data was last revised 2018. Creatinine Ur 229.1 mg/dL [facility] Comment: Interpretive Data No reference range established. Current interpretive data was last revised 2018. Protein/creatinin e ratio 69.4 0.0 - 180.0 mg/g CR [facility] Urine 09/06/2022 1:55 PM GROUNDS MANAGER 09/06/2022 4:03 PM GROUNDS MANAGER Eren Cr MD LAB URINE ORDERABLES Final Re sult Performing Organization Address [facility] Co de Phone Number [facility] Department [place] [address] documented in this encounter Visit Diagnoses Diagnosis [...] 09/07/19 documented in this encounter Care Teams Weatherseal Technician Relationship Specialty Start Date End Date Julio César Briseno MD PCP - General 10/01/16 Eren Cr MD Referring Physician Medical Oncology 11/25/18 Yohana Bowen MD Radiation Oncologist Radiation Oncology 11/25/18 documented as of this encounter
--- OUTSIDE RECORDS SUMMARY | 2024-06-26 02:02 | XMS_ITS | Encounter Summary ---
Author Organization [facility] Address [address] [place] [address] Phone Care Team Providers Care Import Manager Name Role Phone Julio César Briseno MD Primary Care Provider Eren Cr MD Unavailable [phone] Yohana Bowen MD Unavailable Encounter Details Date Type Department Care Team (Late st Contact Info) Description 07/12/2022 Orders Only [facility] Oncology [address] [place] [address] Yoana [facility] Social History Tobacco Use Types Packs/Day [...] on file Legal Sex Female 2:41 PM SCREEN PRINTER HELPER Gender Identity Not on file Sexual Orientation Straight 02/19/2021 9: 29 AM CDT Occupation Industry Job Start Date Job End Date retired Not on file Not on file Not on file documented as of this encounter Plan of Treatment Not on file documented as of this encounter Visit Diagnoses Not on filedocumented in this encounter Care Teams Import Manager Relationship Specialty Start Date End Date Julio César Briseno MD PCP - General 10/01/16 Eren Cr MD Referring Physician Medical Oncology 11/25/18 Yohana Bowen MD Radiation Oncologist Radiation Oncology 11/25/18 documented as of this encounter
--- OUTSIDE RECORDS SUMMARY | 2024-06-26 02:02 | XMS_ITS | Encounter Summary ---
Author Organization [facility] Address [address] [place] [address] Phone Care Team Providers Care Regional Planner Name Role Phone Julio César Briseno MD Primary Care Provider Eren Cr MD Unavailable [phone] Yohana Bowen MD Unavailable Encounter Details Date Type Department Care Team (Late st Contact Info) Description 07/12/2022 Orders Only [facility] Oncology [address] [place] [address] Eren Cr MD [address] [place] [address] Neuro-endocrine carcinoma (CMS/HCC) (HCC) (Primary [...] on file Legal Sex Female 2:41 PM FINAL INSTALLER INSPECTOR Gender Identity Not on file Sexual Orientation Straight 02/19/2021 9: 29 AM CDT Occupation Industry Job Start Date Job End Date retired Not on file Not on file Not on file documented as of this encounter Plan of Treatment Not on file documented as of this encounter Results * (ABNORMAL) Chromogranin A (08/07/2022 10:48 AM FINAL INSTALLER INSPECTOR) Chromogranin A 1094(H) <93 ng/mL [facility] Comment: Impaired renal or hepatic function [...] a homogeneous time-resolved immunofluorescent assay manufactured by [employer] and performed on the [employer] Kryptor Compact Plus. ? Values obtained with different assay methods or kits may be different and cannot be used interchangeably. ? Test results cannot be interpreted as absolute evidence for the presence or absence of malignant disease. Test Performed by: [address] [address] Clin Tech: Immanuel Novak M.D. Ph.D.; CLIA# [id number] Blood 08/07/2022 10:4 8 AM FINAL INSTALLER INSPECTOR 08/07/2022 1:07 PM FINAL INSTALLER INSPECTOR Eren Cr MD LAB BLOOD ORDERABLES Final Re sult Performing Organization Address [facility] [place] [address] * (ABNORMAL) Vitamin D 25 hydroxy (08/07/2022 10:48 AM FINAL INSTALLER INSPECTOR) Vitamin D 25-OH 24(L) 30 - 80 ng/mL [facility] Blood 08/07/2022 10:4 8 AM FINAL INSTALLER INSPECTOR 08/07/2022 11:56 AM FINAL INSTALLER INSPECTOR Eren Cr MD LAB BLOOD ORDERABLES Final Re sult Performing Organization Address [facility] de Phone Number [facility] [place] [address] * (ABNORMAL) Phosphorus (08/07/2022 10:48 AM FINAL INSTALLER INSPECTOR) Pathologist [facility] Phosphorus, pl 2.0(L) 2.3 - 4.5 mg/dL [facility] Comment:Testing performed by : [facility], [address] [place] [address] Blood 08/07/2022 10:4 8 AM FINAL INSTALLER INSPECTOR 08/07/2022 10:50 AM FINAL INSTALLER INSPECTOR Eren Cr MD LAB BLOOD ORDERABLES Final Re sult Performing Organization Address [facility] Co de Phone Number [facility] [place], [place] [id number] * (ABNORMAL) Lipid panel (08/07/2022 10:48 AM FINAL INSTALLER INSPECTOR) Pathologist [facility] Cholesterol 178 30 - 199 mg/dL [facility] Comment: Interpretive Data Ages [...] revised on 2018. Triglycerides 229(H) <=149 mg/dL [facility] Comment: Interpretive Data Ages [...] revised on 2018. HDL 57 >=40 mg/dL [facility] Comment: Interpretive Data Ages [...] 2018. LDL, calculated 75 <=129 mg/dL [facility] Comment: Interpretive Data Ages < or [...] revised on 2018. Non-HDL Cholesterol 121 mg/dL [facility] Comment: Interpretive Data Ages < or [...] revised on 2018. Chol/HDL ratio 3 [facility] Blood 08/07/2022 10:4 8 AM FINAL INSTALLER INSPECTOR 08/07/2022 11:56 AM FINAL INSTALLER INSPECTOR us Eren Cr MD LAB BLOOD ORDERABLES Final Re sult [facility] Department [place] [address] * Magnesium (08/07/2022 10:48 AM FINAL INSTALLER INSPECTOR) [facility] Magnesium 1.4 1.4 - 2.5 mg/dL [facility] Comment:Testing performed by : [facility], [address] [place] [address] Blood 08/07/2022 10:4 8 AM FINAL INSTALLER INSPECTOR 08/07/2022 10:50 AM FINAL INSTALLER INSPECTOR Eren Cr MD LAB BLOOD ORDERABLES Final Re sult Performing Organization Address [facility] Co de Phone Number [facility] [place] [address] * (ABNORMAL) Comprehensive metabolic panel (08/07/2022 10:48 AM FINAL INSTALLER INSPECTOR) [facility] Sodium 141 135 - 145 mmol/L [facility] Comment:Testing performed by : [address] [address] Potassium, pl 4.2 3.3 - 4.9 mmol/L [facility] Chloride 107 97 - 110 mmol/L [facility] CO2 28 22 - 32 mmol/L [facility] Anion gap 6 2 - 15 mmol/L [facility] BUN 20 8 - 25 mg/dL [facility] Creatinine 1.46(H) 0.60 - 1.10 mg/dL [facility] Glucose 132 70 - 199 mg/dL [facility] [...] 2022. Calcium 9.8 8.5 - 10.3 mg/dL [facility] Bilirubin, total 0.6 0.1 - 1.2 mg/dL [facility] Protein, pl 6.5 6.5 - 8.5 g/dL [facility] Albumin 4.0 3.5 - 5.0 g/dL [facility] Alk phos 63 40 - 130 Units/L [facility] ALT 24 7 - 45 Units/L [facility] AST 34 10 - 45 Units/L [facility] Blood 08/07/2022 10:4 8 AM FINAL INSTALLER INSPECTOR 08/07/2022 10:50 AM FINAL INSTALLER INSPECTOR Eren Cr MD LAB BLOOD ORDERABLES Final Re sult [facility] One [facility] Department [place] [address] * (ABNORMAL) CBC with auto differential (08/07/2022 10:48 AM FINAL INSTALLER INSPECTOR) WBC 3.4(L) 3.8 - 9.9 K/cumm [facility] Comment:Testing performed by : [address] [address] Hgb 11.9 11.9 - 15.5 g/dL [facility] Comment:Testing performed by : [address] [address] Hct 35.7 35.6 - 45.5 % [facility] Comment:Testing performed by : [address] [address] Plt 100(L) 150 - 400 K/cumm [facility] Comment:Testing performed by : [address] [address] MPV 10.4 9.1 - 12.3 fL [facility] RBC 3.59(L) 3.90 - 5.20 M/cumm [facility] MCV 99.4(H) 81.3 - 96.4 fL [facility] MCH 33.1 27.1 - 33.3 pg [facility] MCHC 33.3 32.3 - 35.7 g/dL [facility] RDW CV 13.9 11.1 - 14.9 % [facility] RDW SD 50.5(H) 35.7 - 48.1 fL [facility] NRBC abs 0.00 0.00 - 0.01 K/cumm [facility] Blood 08/07/2022 10:4 8 AM FINAL INSTALLER INSPECTOR 08/07/2022 10:50 AM FINAL INSTALLER INSPECTOR us Eren Cr MD LAB BLOOD ORDERABLES Final Re sult [facility] Department [place] [address] documented in this encounter Visit Diagnoses Diagnosis [...] 23 documented in this encounter Care Teams Regional Planner Relationship Specialty Start Date End Date Julio César Briseno MD PCP - General 10/01/16 Eren Cr MD Referring Physician Medical Oncology 11/25/18 Yohana Bowen MD Radiation Oncologist Radiation Oncology 11/25/18 documented as of this encounter
--- OUTSIDE RECORDS SUMMARY | 2024-06-26 02:02 | XMS_ITS | Encounter Summary ---
Author Organization [facility] of 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) Procedures DE OCTREOTIDE INJECTION, DEPOT Octreotide 28 Day Cycles - Carcinoid Eren Cr MD [address] [place] [address] Phone: tel: fax: [address] [address] Phone: tel: fax: Referral ID Status Reason Start Date Expiration Date V isits Requested Visits Authorized [id number] Authorized 11/28/2017 02/05/2025 1 150 Encounter Details Date Type Department Care Team (Late st Contact Info) Description 08/07/2022 12:30 PM LICENSED CHEMICAL SPRAY TECHNICIAN Infusion [facility] Oncology [address] [place] [address] Neuro-endocrine carcinoma (CMS/HCC) (HCC) (Primary Dx); Malignant [...] file Legal Sex Female 2:41 PM LICENSED CHEMICAL SPRAY TECHNICIAN Gender Identity Not on file Sexual Orientation Straight 02/19/2021 9: 29 AM CDT Occupation Industry Job Start Date Job End Date retired Not on file Not on file Not on file documented as of this encounter Nursing Notes * Babs Stokes, RN - 08/07/2022 12:30 PM CST Oncology Nursing Note [facility] La Chung is a 71 y.o. female who presents for treatment cycle 14, day 1 of [id number] - [id number] Pills. Hydration: 1 liter NS over 2 [...] Accompanied by: Self Discharged To: Home NSED CHEMICAL SPRAY TECHNICIAN documented in this encounter Plan of [...] (HCC),Neuroendocrine carcinoma (HCC) Given 08/07/2022 2:52 PM LICENSED CHEMICAL SPRAY TECHNICIAN 30 mg Right Ventrogluteal ondansetron (ZOFRAN) injection 8 mg 8 mg, intravenous, Administer over 2 Minutes, Once as needed, nausea, vomiting, Starting on Sat08/07/22 at 1253, For 1 doseIndications:Hypoph osphatemia Given 08/07/2022 1:01 PM LICENSED CHEMICAL SPRAY TECHNICIAN 8 mg sodium chloride 0.9% bolus 1,000 mL 1,000 mL, intravenous, at 500 mL/hr, Administer over 2 Hours, Once, On Sat08/07/22 at 1315, For 1 doseIndications:Dehydr ation,Neuroendocrine carcinoma (HCC) New Bag 08/07/2022 12:51 PM LICENSED CHEMICAL SPRAY TECHNICIAN 1,000 mL 500 mL/hr documented in this encounter Orders Appointment Requests Count Last Ordered Date Fi rst Ordered Date ONCBCN INFUSION APPT REQUEST 1 08/07/2022 documented in this encounter Care Teams Adjunct Psychology Faculty Member Relationship Specialty Start Date End Date Julio César Briseno MD PCP - General 10/01/16 Eren Cr MD Referring Physician Medical Oncology 11/25/18 Yohana Bowen MD Radiation Oncologist Radiation Oncology 11/25/18 documented as of this encounter
--- OUTSIDE RECORDS SUMMARY | 2024-06-26 02:02 | XMS_ITS | Encounter Summary ---
Author Organization [facility] Healthcare Address [address] [place] [address] Care Team Providers Care Oil Heat Technician Name Role Phone Julio César Briseno MD Primary Care Provider [phone] Eren Cr MD Unavailable Yohana Bowen MD Unavailable Encounter Details Date Type Department Care Team (Latest Contact Info) Description 07/12/2022 9:37 AM SYSTEMS ENGINEER - 07/12/2022 11:59 PM SYSTEMS ENGINEER Hospital Encounter [address] [address] Neuroendocrine carcinoma (CMS/HCC) (HCC); Malignant neoplasm metastatic [...] on file Legal Sex Female 2:41 PM SYSTEMS ENGINEER Gender Identity Not on file [...] capsuleIndicatio ns:supplement Take 1 tablet by mouth market intelligence consultant before breakfast 07/04/2016 4 cholecalciferol (VITAMIN D-3) 2,000 unit capsule Take 1 capsule (2,000 Units total) by mouth daily 30 capsule 2 04/25/2019 3 clotrimazole-bet amethasone (LOTRISONE) cream Apply 1 Application topically daily as needed (rash) 4 coenzyme [id number]-[id number] E 100-5 mg-unit capsuleIndicatio ns:supplement Take 1 tablet by mouth market intelligence consultant before breakfast 4 diphenoxylate-at ropine (LOMOTIL) [...] as needed for rhinitis or allergies 4 [facility] cabozantinib/maris cebo (2017--122/A02 1602) 20 mg tabletIndication s:cancer study Take 1 tablet (20 mg total) by mouth nightly Take on an empty stomach (no food for 2 hours before and 1 hour after each dose).?? Avoid Erhard's Wort, grapefruit products and [place] oranges while on treatment. placed on hold 09/26/22 for covid 01/29/2022 4 levothyroxine (SYNTHROID) 88 mcg tabletIndication s:Hypothyroidism due to medication TAKE 1 TABLET (88 MCG TOTAL) BY MOUTH EDUCATION DEPARTMENT REGISTRAR BEFORE BREAKFAST 30 tablet 1 07/03/2022 3 [...] RATIO, URINE, RANDOM Routine 07/12/2022 10:50 AM SYSTEMS ENGINEER Neuroendocrine carcinoma (CMS/HCC) (HCC) EGFR STAT 07/12/2022 9:48 AM SYSTEMS ENGINEER 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) EGFR STAT 07/12/2022 9:48 AM SYSTEMS ENGINEER Neuro-endocrine carcinoma (CMS/HCC) (HCC) DIFFERENTIAL AUTO Routine 07/12/2022 9:4 8 AM SYSTEMS ENGINEER 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) CHROMOGRANIN A Routine 07/12/2022 9:48 AM SYSTEMS ENGINEER 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) CBC WITH AUTO DIFFERENTIAL Routine 07/12/2022 9:48 AM SYSTEMS ENGINEER 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) VITAMIN D 25 HYDROXY Routine 07/12/2022 9:48 AM SYSTEMS ENGINEER 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) PHOSPHORUS STAT 07/12/2022 9:48 AM SYSTEMS ENGINEER Neuro-endocrine carcinoma (CMS/HCC) (HCC) PHOSPHORUS Routine 07/12/2022 9:48 AM SYSTEMS ENGINEER 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) MAGNESIUM STAT 07/12/2022 9:48 AM SYSTEMS ENGINEER Neuro-endocrine carcinoma (CMS/HCC) (HCC) LIPID PANEL Routine 07/12/2022 9:48 AM SYSTEMS ENGINEER 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) COMPREHENSIVE METABOLIC PANEL STAT 07/12/2022 9:48 AM SYSTEMS ENGINEER Neuro-endocrine carcinoma (CMS/HCC) (HCC) COMPREHENSIVE METABOLIC PANEL STAT 07/12/2022 9:48 AM SYSTEMS ENGINEER 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) documented in this encounter Results * Protein / creatinine ratio, urine, random (07/12/2022 10:50 AM SYSTEMS ENGINEER) Pathologist [facility] Protein, ur, quant 7.0 mg/dL [facility] Comment: Interpretive Data No reference range established. Current interpretive data was last revised 2018. Creatinine Ur 127.6 mg/dL [facility] Comment: Interpretive Data No reference range established. Current interpretive data was last revised 2018. Protein/creatinin e ratio 54.9 0.0 - 180.0 mg/g CR [facility] Urine 07/12/2022 10:5 0 AM SYSTEMS ENGINEER 07/12/2022 1:29 PM SYSTEMS ENGINEER us Eren Cr MD LAB URINE ORDERABLES Final Re sult [facility] Department [place] [address] * (ABNORMAL) eGFR (07/12/2022 9:48 AM SYSTEMS ENGINEER) Pathologist [facility] eGFR 52(L) 90 - 130 mL/min/1. 73 m2 [facility] Comment: Interpretive Data Reference Interval Normal [...] last reviewed 2021. Blood 07/12/2022 9:48 AM SYSTEMS ENGINEER 07/12/2022 10:02 AM SYSTEMS ENGINEER us Eren Cr MD LAB BLOOD ORDERABLES Final Re sult [facility] [place] [address] * (ABNORMAL) eGFR (07/12/2022 9:48 AM SYSTEMS ENGINEER) Pathologist [facility] eGFR 52(L) 90 - 130 mL/min/1. 73 m2 [facility] Comment: Interpretive Data Reference Interval Normal [...] last reviewed 2021. Blood 07/12/2022 9:48 AM SYSTEMS ENGINEER 07/12/2022 10:02 AM SYSTEMS ENGINEER us Eren Cr MD LAB BLOOD ORDERABLES Final Re sult [facility] Department [place] [address] * (ABNORMAL) Differential, auto (07/12/2022 9:48 AM SYSTEMS ENGINEER) Pathologist [facility] Neutrophil abs 2.0 1.7 - 6.5 K/cumm [facility] Comment:Testing performed by : [facility], [address] [place] [address] Imm gran abs 0.0 0.0 - 0.1 K/cumm [facility] Lymphocyte abs 0.5(L) 0.8 - 3.3 K/cumm [facility] Monocyte abs 0.4 0.2 - 0.8 K/cumm [facility] Eosinophil abs 0.3 0.0 - 0.5 K/cumm [facility] Basophil abs 0.0 0.0 - 0.1 K/cumm [facility] Neutrophil pct 62.2 % [facility] Comment: Interpretive Data Percent cell count reference ranges are not reported, since discordance with absolute values may lead to misinterpretation of CBC data. Current Interpretive Data was last revised on 2017. Imm gran pct 0.6 % [facility] Comment: Interpretive Data Percent cell count reference ranges are not reported, since discordance with absolute values may lead to misinterpretation of CBC data. Current Interpretive Data was last revised on 2017. Lymphocyte pct 16.2 % [facility] Comment: Interpretive Data Percent cell count reference ranges are not reported, since discordance with absolute values may lead to misinterpretation of CBC data. Current Interpretive Data was last revised on 2017. Monocyte pct 11.9 % [facility] Comment: Interpretive Data Percent cell count reference ranges are not reported, since discordance with absolute values may lead to misinterpretation of CBC data. Current Interpretive Data was last revised on 2017. Eosinophil pct 8.5 % [facility] Comment: Interpretive Data Percent cell count reference ranges are not reported, since discordance with absolute values may lead to misinterpretation of CBC data. Current Interpretive Data was last revised on 2017. Basophil pct 0.6 % [facility] Comment: Interpretive Data Percent cell count reference ranges are not reported, since discordance with absolute values may lead to misinterpretation of CBC data. Current Interpretive Data was last revised on 2017. Blood 07/12/2022 9:48 AM SYSTEMS ENGINEER 07/12/2022 10:02 AM SYSTEMS ENGINEER us Eern Cr MD LAB BLOOD ORDERABLES Final [facility] Department [place] [address] * (ABNORMAL) Comprehensive metabolic panel (07/12/2022 9:48 AM SYSTEMS ENGINEER) Sodium 141 135 - 145 mmol/L [facility] Comment:Testing performed by : [facility], [address] [place] [address] Potassium, pl 3.9 3.3 - 4.9 mmol/L [facility] Chloride 108 97 - 110 mmol/L [facility] CO2 28 22 - 32 mmol/L [facility] Anion gap 5 2 - 15 mmol/L [facility] BUN 16 8 - 25 mg/dL [facility] Creatinine 1.11(H) 0.60 - 1.10 mg/dL [facility] Glucose 135 70 - 199 mg/dL [facility] Comment: [...] 2017. Calcium 10.3 8.5 - 10.3 mg/dL [facility] Bilirubin, total 0.6 0.1 - 1.2 mg/dL [facility] Protein, pl 6.4(L) 6.5 - 8.5 g/dL [facility] Albumin 4.0 3.5 - 5.0 g/dL [facility] Alk phos 59 40 - 130 Units/L [facility] ALT 24 7 - 45 Units/L [facility] AST 34 10 - 45 Units/L [facility] Blood 07/12/2022 9:48 AM SYSTEMS ENGINEER 07/12/2022 10:02 AM SYSTEMS ENGINEER us Eren Cr MD LAB BLOOD ORDERABLES Final Re sult [facility] Department [place] [address] * Magnesium (07/12/2022 9:48 AM SYSTEMS ENGINEER) Magnesium 1.4 1.4 - 2.5 mg/dL [facility] Comment:Testing performed by : [facility], [address] [place] [id number] Blood 07/12/2022 9:48 AM SYSTEMS ENGINEER 07/12/2022 10:02 AM SYSTEMS ENGINEER Eren Cr MD LAB BLOOD ORDERABLES Final Re sult Performing Organization Address [facility] Co de Phone Number [facility] [place] [address] * Phosphorus (07/12/2022 9:48 AM SYSTEMS ENGINEER) Phosphorus, pl 2.6 2.3 - 4.5 mg/dL [facility] Comment:Testing performed by : [facility], [address] [place] [address] Blood 07/12/2022 9:48 AM SYSTEMS ENGINEER 07/12/2022 10:02 AM SYSTEMS ENGINEER Eren Cr MD LAB BLOOD ORDERABLES Final Re sult Performing Organization Address [facility] Co [place] [address] * (ABNORMAL) Lipid panel (07/12/2022 9:48 AM SYSTEMS ENGINEER) Cholesterol 183 30 - 199 mg/dL [facility] Comment: Interpretive Data Ages < or [...] on 2018. Triglycerides 262(H) <=149 mg/dL [facility] Comment: Interpretive Data Ages < or [...] revised on 2018. HDL 55 >=40 mg/dL [facility] Comment: Interpretive Data Ages < or [...] 2018. LDL, calculated 76 <=129 mg/dL [facility] Comment: Interpretive Data Ages < or [...] 3 [facility] Blood 07/12/2022 9:48 AM SYSTEMS ENGINEER 07/12/2022 11:41 AM SYSTEMS ENGINEER us Eren Cr MD LAB BLOOD ORDERABLES Final Re sult [facility] [place] [address] * Phosphorus (07/12/2022 9:48 AM SYSTEMS ENGINEER) [facility] Phosphorus, pl 2.7 2.3 - 4.5 mg/dL [facility] Comment:Testing performed by : [address] [address] Blood 07/12/2022 9:48 AM SYSTEMS ENGINEER 07/12/2022 10:02 AM SYSTEMS ENGINEER Eren Cr MD LAB BLOOD ORDERABLES Final Re sult Performing Organization Address [facility] Co de Phone Number [facility] [place] [address] * (ABNORMAL) Vitamin D 25 hydroxy (07/12/2022 9:48 AM SYSTEMS ENGINEER) Pathologist [facility] Vitamin D 25-OH 19(L) 30 - 80 ng/mL [facility] Blood 07/12/2022 9:48 AM SYSTEMS ENGINEER 07/12/2022 11:41 AM SYSTEMS ENGINEER Eren Cr MD LAB BLOOD ORDERABLES Final Re sult Performing Organization Address [facility] de Phone Number [facility] [place] [address] * (ABNORMAL) CBC with auto differential (07/12/2022 9:48 AM SYSTEMS ENGINEER) [facility] WBC 3.3(L) 3.8 - 9.9 K/cumm [facility] Comment:Testing performed by : [address] [address] Hgb 12.1 11.9 - 15.5 g/dL [facility] Comment:Testing performed by : [address] [address] Hct 36.0 35.6 - 45.5 % [facility] Comment:Testing performed by : [address] [address] Plt 96(L) 150 - 400 K/cumm [facility] Comment:Testing performed by : [address] [address] MPV 10.7 9.1 - 12.3 fL [facility] RBC 3.67(L) 3.90 - 5.20 M/cumm [facility] MCV 98.1(H) 81.3 - 96.4 fL [facility] MCH 33.0 27.1 - 33.3 pg [facility] MCHC 33.6 32.3 - 35.7 g/dL [facility] RDW CV 14.3 11.1 - 14.9 % [facility] RDW SD 50.9(H) 35.7 - 48.1 fL [facility] NRBC abs 0.00 0.00 - 0.01 K/cumm [facility] Blood 07/12/2022 9:48 AM SYSTEMS ENGINEER 07/12/2022 10:02 AM SYSTEMS ENGINEER Eren Cr MD LAB BLOOD ORDERABLES Final Re sult [facility] [place] [address] * (ABNORMAL) Comprehensive metabolic panel (07/12/2022 9:48 AM SYSTEMS ENGINEER) Sodium 140 135 - 145 mmol/L [facility] Comment:Testing performed by : [facility], [address] [place] [address] Potassium, pl 3.9 3.3 - 4.9 mmol/L [facility] Chloride 107 97 - 110 mmol/L [facility] CO2 27 22 - 32 mmol/L [facility] Anion gap 6 2 - 15 mmol/L [facility] BUN 16 8 - 25 mg/dL [facility] Creatinine 1.11(H) 0.60 - 1.10 mg/dL [facility] Glucose 134 70 - 199 mg/dL [facility] Comment: [...] 2017. Calcium 10.1 8.5 - 10.3 mg/dL [facility] Bilirubin, total 0.6 0.1 - 1.2 mg/dL [facility] Protein, pl 6.3(L) 6.5 - 8.5 g/dL [facility] Albumin 3.9 3.5 - 5.0 g/dL [facility] Alk phos 61 40 - 130 Units/L [facility] ALT 25 7 - 45 Units/L [facility] AST 34 10 - 45 Units/L [facility] Blood 07/12/2022 9:48 AM SYSTEMS ENGINEER 07/12/2022 10:02 AM SYSTEMS ENGINEER us Eren Cr MD LAB BLOOD ORDERABLES Final Re sult [facility] [place] [address] * (ABNORMAL) Chromogranin A (07/12/2022 9:48 AM SYSTEMS ENGINEER) Chromogranin A 1006(H) <93 ng/mL [facility] Comment: Impaired renal or hepatic function or treatment with proton pump inhibitors may result in artifactual elevations of Chromogranin A. ADDITIONAL INFORMATION This test was developed and its performance characteristics determined by [facility] in a manner consistent with CLIA [...] a homogeneous time-resolved immunofluorescent assay manufactured by [employer] and performed on the [employer] Kryptor Compact Plus. ? Values obtained with different assay methods or kits may be different and cannot be used interchangeably. ? Test results cannot be interpreted as absolute evidence for the presence or absence of malignant disease. Test Performed by: [facility] [address] [id number] Animal Researcher: Immanuel Novak M.D. Ph.D.; CLIA# [id number] Blood 07/12/2022 9:48 AM SYSTEMS ENGINEER 07/12/2022 2:04 PM SYSTEMS ENGINEER us Eren Cr MD LAB BLOOD ORDERABLES Final Re sult [facility] Department [place] [address] documented in this encounter Visit Diagnoses Diagnosis Neuroendocrine carcinoma (HCC) Other malignant neoplasm of unspecified site Malignant neoplasm metastatic to liver (HCC) Neuro-endocrine carcinoma (HCC) Other malignant neoplasm of unspecified site documented in this encounter Care Teams Oil Heat Technician Relationship Specialty Start Date End Date Julio César Briseno MD PCP - General 10/01/16 Eren Cr MD Referring Physician Medical Oncology 11/25/18 Yohana Bowen MD Radiation Oncologist Radiation Oncology 11/25/18 documented as of this encounter
--- OUTSIDE RECORDS SUMMARY | 2024-06-26 02:02 | XMS_ITS | Encounter Summary ---
Author Organization [facility] Address [address] [place] [address] Phone Care Team Providers Care Human Resources Administrator Name Role Phone Julio César Briseno MD Primary Care Provider [phone] Eren Cr MD Unavailable Yohana Bowen MD Unavailable Encounter Details Date Type Department Care Team (Late st Contact Info) Description 07/12/2022 Orders Only [facility] Oncology [address] [place] [address] Eren Cr MD [address] [facility] [address] [place] [address] Dehydration (Primary Dx); Neuro-endocrine carcinoma [...] file Legal Sex Female 2:41 PM SPORTS REPORTER Gender Identity Not on file Sexual Orientation [...] 07/26/2022 documented in this encounter Care Teams Human Resources Administrator Relationship Specialty Start Date End Date Julio César Briseno MD PCP - General 10/01/16 Eren Cr MD Referring Physician Medical Oncology 11/25/18 Yohana Bowen MD Radiation Oncologist Radiation Oncology 11/25/18 documented as of this encounter
--- OUTSIDE RECORDS SUMMARY | 2024-06-26 02:02 | XMS_ITS | Encounter Summary ---
Author Organization [facility] Address [address] [place] [address] Phone Care Team Providers Care Head Track Coach Name Role Phone Julio César Briseno MD Primary Care Provider Eren Cr MD Unavailable [phone] Yohana Bowen MD Unavailable Encounter Details Date Type Department Care Team (Late st Contact Info) Description 07/12/2022 Orders Only [facility] Oncology [address] [place] [address] Eren Cr MD [address] [place], [place] [id number] Social History Tobacco Use Types Packs/Day Years [...] on file Legal Sex Female 2:41 PM CAMPGROUND CLEANING ATTENDANT Gender Identity Not on file Sexual Orientation Straight 02/19/2021 9: 29 AM CDT Occupation Industry Job Start Date Job End Date retired Not on file Not on file Not on file documented as of this encounter Plan of Treatment Not on file documented as of this encounter Visit Diagnoses Not on filedocumented in this encounter Care Teams Head Track Coach Relationship Specialty Start Date End Date Julio César Briseno MD PCP - General 10/01/16 Eren Cr MD Referring Physician Medical Oncology 11/25/18 Yohana Bowen MD Radiation Oncologist Radiation Oncology 11/25/18 documented as of this encounter
--- OUTSIDE RECORDS SUMMARY | 2024-06-26 02:02 | XMS_ITS | Encounter Summary ---
Author Organization [facility] Address [address] [place] [address] Phone Care Team Providers Care Log Pond Worker Name Role Phone Julio César Briseno MD Primary Care Provider [phone] Eren Cr MD Unavailable [phone] Yohana Bowen MD Unavailable Encounter Details Date Type Department Care Team (Late st Contact Info) Description 07/12/2022 Orders Only [facility] Oncology [address] [place] [address] Opal Avila, EMT Neuroendocrine carcinoma (CMS/HCC) (HCC) [...] file 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 REHABILITATION PROGRAM Gender Identity Not on file Sexual Orientation Straight 02/19/2021 9: 29 AM CDT Occupation Industry Job Start Date Job End Date retired Not on file Not on file Not on file documented as of this encounter Plan of Treatment Not on file documented as of this encounter Results * Protein / creatinine ratio, urine, random (07/12/2022 10:50 AM DIRECTOR REHABILITATION PROGRAM) Protein, ur, quant 7.0 mg/dL [facility] Comment: Interpretive Data No reference range established. Current interpretive data was last revised 2018. Creatinine Ur 127.6 mg/dL [facility] Comment: Interpretive Data No reference range established. Current interpretive data was last revised 2018. Protein/creatinin e ratio 54.9 0.0 - 180.0 mg/g CR [facility] Urine 07/12/2022 10:5 0 AM DIRECTOR REHABILITATION PROGRAM 07/12/2022 1:29 PM DIRECTOR REHABILITATION PROGRAM us Eren Cr MD LAB URINE ORDERABLES Final Re sult [facility] Department [place] [address] documented in this encounter Visit Diagnoses Diagnosis Neuroendocrine carcinoma (HCC)- Primary Other malignant neoplasm of unspecified site documented in this encounter Care Teams Log Pond Worker Relationship Specialty Start Date End Date Julio César Briseno MD PCP - General 10/01/16 Eren Cr MD Referring Physician Medical Oncology 11/25/18 Yohana Bowen MD Radiation Oncologist Radiation Oncology 11/25/18 documented as of this encounter
--- OUTSIDE RECORDS SUMMARY | 2024-06-26 02:02 | XMS_ITS | Encounter Summary ---
Author Organization [facility] Address [address] [place] [address] Phone Care Team Providers Care Development Specialist Name Role Phone Julio César Briseno MD Primary Care Provider Eren Cr MD Unavailable [phone] Yohana Bowen MD Unavailable Encounter Details Date Type Department Care Team (Late st Contact Info) Description 07/13/[address] [facility] Oncology [address] [place] [address] Eren Cr MD [address] [place], [place] [id number] Social History Tobacco Use Types Packs/Day Years [...] on file Legal Sex Female 2:41 PM STARTING GATE DRIVER Gender Identity Not on file Sexual Orientation Straight 02/19/2021 9: 29 AM CDT Occupation Industry Job Start Date Job End Date retired Not on file Not on file Not on file documented as of this encounter Plan of Treatment Not on file documented as of this encounter Visit Diagnoses Not on filedocumented in this encounter Care Teams Development Specialist Relationship Specialty Start Date End Date Julio César Briseno MD PCP - General 10/01/16 Eren Cr MD Referring Physician Medical Oncology 11/25/18 Yohana Bowen MD Radiation Oncologist Radiation Oncology 11/25/18 documented as of this encounter
--- OUTSIDE RECORDS SUMMARY | 2024-06-26 02:02 | XMS_ITS | Encounter Summary ---
Author Organization [facility] Address [address] [place] [address] Phone Care Team Providers Care Manager Technical Services Name Role Phone Julio César Briseno MD Primary Care Provider [phone] Eren Cr MD Unavailable [phone] Yohana Bowen MD Unavailable Encounter Details Date Type Department Care Team (Late st Contact Info) Description 07/13/2022 Orders Only [facility] Oncology [address] [place] [address] Eren Cr MD [address] [facility] [address] [place], [place] [id number] Dehydration (Primary Dx); Neuro-endocrine carcinoma (CMS/HCC) (HCC) [...] file Legal Sex Female 2:41 PM BOX GLUER Gender Identity Not on file Sexual Orientation [...] 07/19/2022 documented in this encounter Care Teams Manager Technical Services Relationship Specialty Start Date End Date Julio César Briseno MD PCP - General 10/01/16 Eren Cr MD Referring Physician Medical Oncology 11/25/18 Yohana Bowen MD Radiation Oncologist Radiation Oncology 11/25/18 documented as of this encounter
--- OUTSIDE RECORDS SUMMARY | 2024-06-26 02:02 | XMS_ITS | Encounter Summary ---
Author Organization [facility] Address [address] [place] [address] Phone Care Team Providers Care Head Neck Surgeon Name Role Phone Julio César Briseno MD Primary Care Provider [phone] Eren Cr MD Unavailable [phone] Yohana oBwen MD Unavailable Reason for Visit * Reason Onset Date Comments Patient issue/concern 08/01/2022 Encounter Details Date Type Department Care Team (Late st Contact Info) Description 08/01/2022 Telephone [facility] Surgery [address] [place] [address] Medical Office Building [address] [place] [address] Delfina Galloway, A Patient issue/concern [...] on file Legal Sex Female 2:41 PM CAPACITOR PACK PRESS OPERATOR Gender Identity Not on file Sexual Orientation Straight 02/19/2021 9: 29 AM CDT Occupation Industry Job Start Date Job End Date retired Not on file Not on file Not on file documented as of this encounter Miscellaneous Notes * Telephone Encounter - Delfina Galloway RMA - 08/01/2022 4:11 PM CAPACITOR PACK PRESS OPERATOR ----- Message from Sola OttGiovanna sent at 08/01/2022 10:29 AM CAPACITOR PACK PRESS OPERATOR ----- Regarding: rectal pain/pressure Hi Delfina, This [...] to take prn at home for pain. CITOR PACK PRESS OPERATOR * Telephone Encounter - Delfina Galloway RMA - 08/01/2022 4:11 PM CAPACITOR PACK PRESS OPERATOR Spoke with patient about rectal pain and pressure from mucus. Discussed doing a fleet enema to help pass the mucus. She may need to do these every few month whenshe feels the rectal pressure/urge to have a bowel movement. Call me back if this does not help and I will get her scheduled for an office visit. CITOR PACK PRESS OPERATOR documented in this encounter Plan of Treatment Not on file documented as of this encounter Visit Diagnoses Not on filedocumented in this encounter Care Teams Head Neck Surgeon Relationship Specialty Start Date End Date Julio César Briseno MD PCP - General 10/01/16 Eren Cr MD Referring Physician Medical Oncology 11/25/18 Yohana Boewn MD Radiation Oncologist Radiation Oncology 11/25/18 documented as of this encounter
--- OUTSIDE RECORDS SUMMARY | 2024-06-26 02:02 | XMS_ITS | Encounter Summary ---
Author Organization [facility] Healthcare Address [address] [place] [address] Care Team Providers Care Subassemblies Wirer Name Role Phone Julio César Briseno MD Primary Care Provider Eren Cr MD Unavailable [phone] Yohana Bowen MD Unavailable Encounter Details Date Type Department Care Team (Latest Contact Info) Description 08/02/2022 1:27 PM BULLET LUBRICATING MACHINE OPERATOR - 08/02/2022 11:59 PM BULLET LUBRICATING MACHINE OPERATOR Hospital Encounter [facility] ([facility]) [address] [place] [phone] Dehydration (Primary Dx); Neuro-endocrine carcinoma (CMS/HCC) [...] on file Legal Sex Female 2:41 PM BULLET LUBRICATING MACHINE OPERATOR Gender Identity Not on file Sexual Orientation Straight 02/19/2021 9: 29 AM CDT Occupation Industry Job Start Date Job End Date retired Not on file Not on file Not on file documented as of this encounter Last Filed Vital Signs Vital Sign Reading Time Taken Comments Blood Pressure 125/52 08/02/2022 3:40 PM BULLET LUBRICATING MACHINE OPERATOR Pulse 63 08/02/2022 3:40 PM BULLET LUBRICATING MACHINE OPERATOR Temperature 36.8 ??C (98.2 ??F) 08/02/2022 3:40 PM CS T Respiratory Rate 16 08/02/2022 3:40 PM BULLET LUBRICATING MACHINE OPERATOR Oxygen Saturation 100% 08/02/2022 3:40 PM BULLET LUBRICATING MACHINE OPERATOR Inhaled Oxygen Concentration - - Weight [...] capsuleIndicatio ns:supplement Take 1 tablet by mouth sales and management trainee before breakfast 07/04/2016 4 cholecalciferol (VITAMIN D-3) 2,000 unit capsule Take 1 capsule (2,000 Units total) by mouth daily 30 capsule 2 04/25/2019 3 clotrimazole-bet amethasone (LOTRISONE) cream Apply 1 Application topically daily as needed (rash) 4 coenzyme [id number] E 100-5 mg-unit capsuleIndicatio ns:supplement Take 1 tablet by mouth sales and management trainee before breakfast 4 diphenoxylate-at ropine (LOMOTIL) 2.5-0.025 [...] dose).?? Avoid Jas's Wort, grapefruit products and [place] oranges while on treatment. placed on hold 09/26/22 for covid 01/29/2022 4 levothyroxine (SYNTHROID) 88 mcg tabletIndication s:Hypothyroidism due to medication TAKE 1 TABLET (88 MCG TOTAL) BY MOUTH SUPERVISOR CELL EFFICIENCY BEFORE BREAKFAST 30 tablet 1 07/03/2022 3 [...] 1:30 PM CST Pt arrived to [facility] for IVF. PAC accessed, flushes easily with sluggish blood return. 1L NS bolus completed and tolerated well. PAC instilled w/ heparin and de-accessed. [place] ET LUBRICATING MACHINE OPERATOR documented in this encounter Plan [...] carcinoma (HCC) New Bag 08/02/2022 1:57 PM BULLET LUBRICATING MACHINE OPERATOR 1,000 mL 500 mL/hr documented [...] 08/02/2022 documented in this encounter Care Teams Subassemblies Wirer Relationship Specialty Start Date End Date Julio César Briseno MD PCP - General 10/01/16 Eren Cr MD Referring Physician Medical Oncology 11/25/18 Yohana Bowen MD Radiation Oncologist Radiation Oncology 11/25/18 documented as of this encounter
--- OUTSIDE RECORDS SUMMARY | 2024-06-26 02:02 | XMS_ITS | Encounter Summary ---
Author Organization [facility] Address [address] [place] [address] Phone Care Team Providers Care Senior Client Advisor Name Role Phone Julio César Briseno MD Primary Care Provider [phone] Eren Cr MD Unavailable [phone] Yohana Bowen MD Unavailable Encounter Details Date Type Department Care Team (Late st Contact Info) Description 07/13/2022 Orders Only [facility] Oncology [address] [place] [address] Eren Cr MD [address] [place], [place] [id number] Social History Tobacco Use Types Packs/Day Years [...] file Legal Sex Female 2:41 PM SUPERVISOR BEATER ROOM Gender Identity Not on file Sexual Orientation Straight 02/19/2021 9: 29 AM CDT Occupation Industry Job Start Date Job End Date retired Not on file Not on file Not on file documented as of this encounter Plan of Treatment Not on file documented as of this encounter Visit Diagnoses Not on filedocumented in this encounter Care Teams Senior Client Advisor Relationship Specialty Start Date End Date Julio César Briseno MD PCP - General 10/01/16 Eren Cr MD Referring Physician Medical Oncology 11/25/18 Yohana Bowen MD Radiation Oncologist Radiation Oncology 11/25/18 documented as of this encounter
--- OUTSIDE RECORDS SUMMARY | 2024-06-26 02:02 | XMS_ITS | Encounter Summary ---
Author Organization [facility] Healthcare Address [facility] [address] Care Team Providers Care Fire Chief'S Aide Name Role Phone Julio César Briseno MD Primary Care Provider [phone] Eren Cr MD Unavailable [phone] Yohana Bowen MD Unavailable Reason for Visit * Reason Comments OP Infusion Encounter Details Date Type Department Care Team (Latest Contact Info) Description 07/19/2022 7:29 AM GLOBAL UPSTREAM MARKETING MANAGER - 07/19/2022 11:59 PM GLOBAL UPSTREAM MARKETING MANAGER Hospital Encounter [facility] ([facility]) [address] [place] [phone] Dehydration (Primary Dx); Neuro-endocrine carcinoma (CMS/HCC) [...] on file Legal Sex Female 2:41 PM GLOBAL UPSTREAM MARKETING MANAGER Gender Identity Not on file Sexual Orientation Straight 02/19/2021 9: 29 AM CDT Occupation Industry Job Start Date Job End Date retired Not on file Not on file Not on file documented as of this encounter Last Filed Vital Signs Vital Sign Reading Time Taken Comments Blood Pressure 136/54 07/19/2022 7:34 AM GLOBAL UPSTREAM MARKETING MANAGER Pulse 87 07/19/2022 7:34 AM GLOBAL UPSTREAM MARKETING MANAGER Temperature 36.9 ??C (98.4 ??F) 07/19/2022 7:34 AM CS T Respiratory Rate 18 07/19/2022 7:34 AM GLOBAL UPSTREAM MARKETING MANAGER Oxygen Saturation 100% 07/19/2022 7:34 AM GLOBAL UPSTREAM MARKETING MANAGER Inhaled Oxygen Concentration - - Weight [...] capsuleIndicatio ns:supplement Take 1 tablet by mouth judicial assistant before breakfast 07/04/2016 4 cholecalciferol (VITAMIN D-3) 2,000 unit capsule Take 1 capsule (2,000 Units total) by mouth daily 30 capsule 2 04/25/2019 3 clotrimazole-bet amethasone (LOTRISONE) cream Apply 1 Application topically daily as needed (rash) 4 coenzyme K62-ewgjpub E 100-5 mg-unit capsuleIndicatio ns:supplement Take 1 tablet by mouth judicial assistant before breakfast 4 diphenoxylate-at ropine (LOMOTIL) 2.5-0.025 [...] dose).?? Avoid Jas's Wort, grapefruit products and [place] oranges while on treatment. placed on hold 09/26/22 for covid 01/29/2022 4 levothyroxine (SYNTHROID) 88 mcg tabletIndication s:Hypothyroidism due to medication TAKE 1 TABLET (88 MCG TOTAL) BY MOUTH LANOLIN PLANT OPERATOR BEFORE BREAKFAST 30 tablet 1 07/03/2022 3 [...] this encounter Nursing Notes * Elissa Lopez, IRVIGN - 07/19/2022 7:30 AM CST Patient arrived to the [facility] for hydration. VSS. PAC accessed per protocol. 1L NS given over 2hrs. PAC hep locked and de-accessed per protocol. AL UPSTREAM MARKETING MANAGER documented in this encounter Plan of [...] euroendocrine carcinoma (HCC) Given 07/19/2022 9:44 AM GLOBAL UPSTREAM MARKETING MANAGER 500 Units sodium chloride 0.9% bolus 1,000 mL 1,000 mL, intravenous, at 500 mL/hr, Administer over 2 Hours, Once, On Lydia 07/19/22 at 0805, For 1 doseIndications:Dehydration,N euroendocrine carcinoma (HCC) New Bag 07/19/2022 7:44 AM GLOBAL UPSTREAM MARKETING MANAGER 1,000 mL 500 mL/hr documented in this encounter Orders Medications Ordered That Brett ht Not Have Been Administered Count Last Ordered Date First Ordered Date sodium chloride 0.9% bolus 1,000 mL 1 07/19 Appointment Requests Count Last Ordered Date Fi rst Ordered Date ONCBCN INFUSION APPT REQUEST 1 07/19/2022 documented in this encounter Care Teams Fire Chief'S Aide Relationship Specialty Start Date End Date Julio César Briseno MD PCP - General 10/01/16 Eren Cr MD Referring Physician Medical Oncology 11/25/18 Yohana Bowen MD Radiation Oncologist Radiation Oncology 11/25/18 documented as of this encounter
--- OUTSIDE RECORDS SUMMARY | 2024-06-26 02:03 | XMS_ITS | Encounter Summary ---
Author Organization [facility] Address [address] [place] [address] Phone Care Team Providers Care Time Stamp Assembler Name Role Phone Julio César Briseno MD Primary Care Provider Eren Cr MD Unavailable [phone] Yohana Bowen MD Unavailable Encounter Details Date Type Department Care Team (Late st Contact Info) Description 04/25/2022 Orders Only [facility] Oncology [address] [place] [address] Eren Cr MD [address] [place] [address] Malignant neoplasm metastatic to liver [...] Legal Sex Female 2:41 PM CHILD LIFE ASSISTANT Gender Identity Not on file Sexual [...] 04/26/2022 documented in this encounter Care Teams Time Stamp Assembler Relationship Specialty Start Date End Date Julio César Briseno MD PCP - General 10/01/16 Eren Cr MD Referring Physician Medical Oncology 11/25/18 Yohana Bowen MD Radiation Oncologist Radiation Oncology 11/25/18 documented as of this encounter
--- OUTSIDE RECORDS SUMMARY | 2024-06-26 02:03 | XMS_ITS | Encounter Summary ---
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 [...] First Orde red Date ONCBCN NURSING COMMUNICATION [id number] 1 04/19 Appointment Requests Count Last Ordered Date Fi rst Ordered Date ONCBCN INFUSION APPT REQUEST 1 04/19/2022 documented in this encounter Care Teams Steamtable Attendant Railroad Relationship Specialty Start Date End Date Julio César Briseno MD PCP - General 10/01/16 Eren Cr MD Referring Physician Medical Oncology 11/25/18 Yohana Bowen MD Radiation Oncologist Radiation Oncology 11/25/18 documented as of this encounter
--- OUTSIDE RECORDS SUMMARY | 2024-06-26 02:03 | XMS_ITS | Encounter Summary ---
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) Procedures [place] OCTREOTIDE INJECTION, DEPOT Octreotide 28 Day Cycles - Carcinoid Eren Cr MD [address] [place] [address] Phone: tel: fax: [address] [address] Phone: tel: fax: Referral ID Status Reason Start Date Expiration Date V isits Requested Visits Authorized [id number] Authorized 11/28/2017 02/05/2025 1 150 Encounter Details Date Type Department Care Team (Late st Contact Info) Description 05/17/2022 1:15 PM PHYSIOTHERAPY AIDE Infusion [facility] Oncology [address] [place] [address] Neuroendocrine carcinoma (CMS/HCC) (HCC); Malignant neoplasm metastatic [...] on file Legal Sex Female 2:41 PM PHYSIOTHERAPY AIDE Gender Identity Not on file Sexual [...] 05/08 documented in this encounter Care Teams Detasseling Crew Supervisor Relationship Specialty Start Date End Date Julio César Briseno MD PCP - General 10/01/16 Eren Cr MD Referring Physician Medical Oncology 11/25/18 Yohana Bowen MD Radiation Oncologist Radiation Oncology 11/25/18 documented as of this encounter
--- OUTSIDE RECORDS SUMMARY | 2024-06-26 02:03 | XMS_ITS | Encounter Summary ---
Author Organization [facility] Address [address] [place] [address] Phone Care Team Providers Care Quality Control Assessor Name Role Phone Julio César Briseno MD Primary Care Provider [phone] Eren Cr MD Unavailable [phone] Yohana Bowen MD Unavailable Reason for Visit * Reason Comments Port Draw * Episode Based Medications (Routine) - Authorized Specialty Diagnoses / Procedures Referred By Contac t Referred To Contact Oncology Diagnoses Neuroendocrine carcinoma (HCC) Malignant neoplasm metastatic to liver (HCC) Procedures [place] OCTREOTIDE INJECTION, DEPOT Octreotide 28 Day Cycles - Carcinoid Eren Cr MD [address] [place] [address] Phone: tel: fax: [address] [address] Phone: tel: fax: Referral ID Status Reason Start Date Expiration Date V isits Requested Visits Authorized [id number] Authorized 11/28/2017 02/05/2025 1 150 Encounter Details Date Type Department Care Team (Latest Contact Info) Description 06/14/2022 9:30 AM STOREROOM SUPERVISOR Clinical Support [facility] Oncology [address] [place] [address] Neuro-endocrine carcinoma (CMS/HCC) (HCC); Neuroendocrine carcinoma (CMS/HCC) [...] on file Legal Sex Female 2:41 PM STOREROOM SUPERVISOR Gender Identity Not on file Sexual [...] 06/14/2022 documented in this encounter Care Teams Quality Control Assessor Relationship Specialty Start Date End Date Julio César Briseno MD PCP - General 10/01/16 Eren Cr MD Referring Physician Medical Oncology 11/25/18 Yohana Bowen MD Radiation Oncologist Radiation Oncology 11/25/18 documented as of this encounter
--- OUTSIDE RECORDS SUMMARY | 2024-06-26 02:03 | XMS_ITS | Encounter Summary ---
Author Organization [facility] Address [address] [place] [address] Phone Care Team Providers Care Gas Combustion Engineer Name Role Phone Julio César Briseno MD Primary Care Provider [phone] Eren Cr MD Unavailable [phone] Yohana Bowen MD Unavailable Reason for Visit * Reason Comments Port Draw * Episode Based Medications (Routine) - Authorized Specialty Diagnoses / Procedures Referred By Contac t Referred To Contact Oncology Diagnoses Neuroendocrine carcinoma (HCC) Malignant neoplasm metastatic to liver (HCC) Procedures [place] OCTREOTIDE INJECTION, DEPOT Octreotide 28 Day Cycles - Carcinoid Eren Cr MD [address] [place] [address] Phone: tel: fax: [address] [address] Phone: tel: fax: Referral ID Status Reason Start Date Expiration Date V isits Requested Visits Authorized [id number] Authorized 11/28/2017 02/05/2025 1 150 Encounter Details Date Type Department Care Team (Latest Contact Info) Description 07/12/2022 10:00 AM FAMILY CENTERED SPECIALIST Clinical Support [facility] Oncology [address] [place] [address] Neuroendocrine carcinoma (CMS/HCC) (HCC); Malignant neoplasm metastatic [...] file Legal Sex Female 2:41 PM FAMILY CENTERED SPECIALIST Gender Identity Not on file Sexual [...] 07/12/2022 documented in this encounter Care Teams Gas Combustion Engineer Relationship Specialty Start Date End Date Julio César Briseno MD PCP - General 10/01/16 Eren Cr MD Referring Physician Medical Oncology 11/25/18 Yohana Bowen MD Radiation Oncologist Radiation Oncology 11/25/18 documented as of this encounter
--- OUTSIDE RECORDS SUMMARY | 2024-06-26 02:03 | XMS_ITS | Encounter Summary ---
Author Organization 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 Eren Cr MD [address] [place] [address] Phone: tel: fax: [facility] [address] [facility] Advanced Medicine 7th [place] [address] Phone: tel: Referral ID Status Reason Start Date Expiration Date Visits Re quested Visits Authorized [id number] Closed 06/21/2021 06/26/2024 1 99 Encounter Details Date Type Department Care Team (Latest Contact Info) Description 04/19/2022 10:00 AM CDT Clinical Support [facility] [address] [place] [phone] Neuro-endocrine carcinoma (CMS/HCC) (HCC) Social History Tobacco [...] on file Legal Sex Female 2:41 PM VEIN PUMPER Gender Identity Not on file Sexual [...] 04/19/2022 documented in this encounter Care Teams Cemetery Worker Relationship Specialty Start Date End Date Julio César Briseno MD PCP - General 10/01/16 Eren Cr MD Referring Physician Medical Oncology 11/25/18 Yohana Bowen MD Radiation Oncologist Radiation Oncology 11/25/18 documented as of this encounter
--- OUTSIDE RECORDS SUMMARY | 2024-06-26 02:03 | XMS_ITS | Encounter Summary ---
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 Oncology [address] [place] [address] Eren Wu MD [address] [place] [address] Neuroendocrine carcinoma (CMS/HCC) (HCC) (Primary Dx); Malignant [...] on file Legal Sex Female 2:41 PM WELDING INSPECTOR Gender Identity Not on file Sexual Orientation Straight 02/19/2021 9: 29 AM CDT Occupation Industry Job Start Date Job End Date retired Not on file Not on file Not on file documented as of this encounter Last Filed Vital Signs Vital Sign Reading Time Taken Comments Blood Pressure 147/68 06/14/2022 9:43 AM WELDING INSPECTOR Pulse 77 06/14/2022 9:43 AM WELDING INSPECTOR Temperature 36.8 ??C (98.2 ??F) 06/14/2022 9:43 AM CS T Respiratory Rate 17 06/14/2022 9:43 AM WELDING INSPECTOR Oxygen Saturation 96% 06/14/2022 9:43 AM WELDING INSPECTOR Inhaled Oxygen Concentration - - Weight 76.5 kg (168 lb 9.6 oz) 06/14/2022 9:43 A M WELDING INSPECTOR shoes off Height - - Body Mass [...] rashes over exposed skin. . NEURO: A&Ox4, stock broker grossly intact by conversation, moving all extremities [...] She is agreeable to proceed. Conferred with [facility] regarding dosing and she will continue on [...] the Problem List Disease Status Documentation for [facility] Neoplastic Disease Neuroendocrine carcinoma (CMS/HCC) (HCC) Cancer Disease Assessment for [facility] Date of diagnosis: 10/03/15 Disease status: stable Reason for disease status: imaging, symptoms, physical exam, lab results Date of cancer disease status assessment: 04/19/22 Malignant neoplasm metastatic to liver (CMS/HCC) (HCC) Cancer Disease Assessment for [facility] Date of diagnosis: 10/03/15 Disease status: not evaluated Date of cancer disease status assessment: 06/14/22 Neuro-endocrine carcinoma (CMS/HCC) (HCC) Bone metastasis (CMS/HCC) (HCC) H/O actinic keratosis Neuroendocrine tumor Cancer Treatment Plan Change for ICARE data: No change in treatment plan ING INSPECTOR ING INSPECTOR documented in this encounter Miscellaneous Notes * Addendum Note - Eren Wu Jr., MD - 06/14/2022 10:00 AM CSTAddended by: EREN WU on: 06/14/2022 11:38 AM Modules accepted: Orders ING INSPECTOR documented in this encounter Plan of [...] 022 documented in this encounter Care Teams Drawing Frame Tender Relationship Specialty Start Date End Date Julio César Briseno MD PCP - General 10/01/16 Eren Wu MD Referring Physician Medical Oncology 11/25/18 Yohana Bowen MD Radiation Oncologist Radiation Oncology 11/25/18 documented as of this encounter
--- OUTSIDE RECORDS SUMMARY | 2024-06-26 02:03 | XMS_ITS | Encounter Summary ---
Author Organization [facility] Address [address] [place] [address] Phone Care Team Providers Care Handyman Name Role Phone Julio César Briseno MD Primary Care Provider [phone] Eren Cr MD Unavailable [phone] Yohana Bowen MD Unavailable Reason for Visit * Episode Based Medications (Routine) - Authorized Specialty Diagnoses / Procedures Referred By Contellen t Referred To Contact Diagnoses Hypomagnesemia Eren Cr MD [address] [facility] [address] [place] [address] Phone: tel: fax: [facility] [facility] 7th [place] [address] Phone: tel: Referral ID Status Reason Start Date Expiration Date V isits Requested Visits Authorized [id number] Authorized 11/13/2021 04/01/2025 30 Encounter Details Date Type Department Care Team (Late st Contact Info) Description 05/03/2022 3:30 PM CDT Infusion [facility] Oncology [address] [place] [address] Advanced Medicine 7th [place] [address] Malignant neoplasm metastatic to liver [...] file Legal Sex Female 2:41 PM CLAIMS ACCOUNT MANAGER Gender Identity Not on file [...] 05/03/2022 documented in this encounter Care Teams Handyman Relationship Specialty Start Date End Date Julio César Briseno MD PCP - General 10/01/16 Eren Cr MD Referring Physician Medical Oncology 11/25/18 Yohana Bowen MD Radiation Oncologist Radiation Oncology 11/25/18 documented as of this encounter
--- OUTSIDE RECORDS SUMMARY | 2024-06-26 02:03 | XMS_ITS | Encounter Summary ---
Author Organization [facility] Address [address] [place] [address] Phone Care Team Providers Care Student Development Specialist Name Role Phone Julio César Briseno MD Primary Care Provider [phone] Eren Lund MD Unavailable [phone] Yohana Bowen MD Unavailable Reason for Visit * Reason Comments Skin Exam + a couple spots Encounter Details Date Type Department Care Team (Late st Contact Info) Description 05/18/2022 12:45 PM DELIVERY OF SHOPPING NEWS Office Visit [facility] Dermatology [address] [facility] [address] [place] [address] oP Newberry MD PhD [address] [place] [id number] Family history of melanoma (Primary Dx); Bagley [...] file Legal Sex Female 2:41 PM DELIVERY OF SHOPPING NEWS Gender Identity Not on file Sexual Orientation Straight 02/19/2021 9: 29 AM CDT Occupation Industry Job Start Date Job End Date retired Not on file Not on file Not on file documented as of this encounter Progress Notes * Po Newberry MD PhD - 05/18/2022 12:45 PM CST [place] [id number] 05/18/22 CHIEF COMPLAINT: inflamed seborrheic keratosis HISTORY [...] actions. Electronically Signed: Po Newberry MD, PhD* VERY [employer]PING NEWS documented in this encounter Plan of Treatment [...] skin documented in this encounter Care Teams Student Development Specialist Relationship Specialty Start Date End Date Julio César Briseno MD PCP - General 10/01/16 Eren Lund MD Referring Physician Medical Oncology 11/25/18 Yohana Bowen MD Radiation Oncologist Radiation Oncology 11/25/18 documented as of this encounter
--- OUTSIDE RECORDS SUMMARY | 2024-06-26 02:03 | XMS_ITS | Encounter Summary ---
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) Bone metastasis Procedures CT chest abdomen pelvis with contrast Eren Cr MD [facility] [place] [address] Phone: tel: fax: [facility] [address] [place] [address] Referral ID Status Reason Start Date Expiration Date Visits Re quested Visits Authorized [id number] Closed 06/13/2022 07/13/2023 1 1 SERVICE ATTENDANT Encounter Details Date Type Department Care Team (Late st Contact Info) Description 06/13/2022 Orders Only [facility] Oncology [address] [place] [address] Eren Cr MD [address] [facility] [address] [place] [address] Primary malignant neuroendocrine tumor of ileum (CMS/HCC) [...] Legal Sex Female 2:41 PM FOOD SERVICE ATTENDANT Gender Identity Not on file Sexual Orientation Straight 02/19/2021 9: 29 AM CDT Occupation Industry Job Start Date Job End Date retired Not on file Not on file Not on file documented as of this encounter Plan of Treatment Not on file documented as of this encounter Results * CT chest abdomen pelvis with contrast (06/28/2022 10:38 AM FOOD SERVICE ATTENDANT) Anatomical Region Laterality Modality Body N/A Computed Tomogra phy 06/28/2022 11:3 6 AM FOOD SERVICE ATTENDANT Impressions 06/28/2022 11:36 AM FOOD SERVICE ATTENDANT 1. ??No metastatic disease in the chest. 2. ??Stable hepatic and peritoneal metastases. ??No new abdominal metastases. Electronically signed by: Jasbir Delgadillo M.D. Narrative 06/28/2022 11:36 AM FOOD SERVICE ATTENDANT EXAMINATION: ??CT chest abdomen pelvis with contrast [...] marrow documented in this encounter Care Teams Aircraft Refueler Relationship Specialty Start Date End Date Julio César Briseno MD PCP - General 10/01/16 Eren Cr MD Referring Physician Medical Oncology 11/25/18 Yohana Bowen MD Radiation Oncologist Radiation Oncology 11/25/18 documented as of this encounter
--- OUTSIDE RECORDS SUMMARY | 2024-06-26 02:03 | XMS_ITS | Encounter Summary ---
Author Organization [facility] Address [address] [place] [address] Phone Care Team Providers Care Behavioral Technician Name Role Phone Julio César Briseno MD Primary Care Provider [phone] Eren Cr MD Unavailable [phone] Yohana Bowen MD Unavailable Reason for Visit * Episode Based Medications (Routine) - Closed Specialty Diagnoses / Procedures Referred By Evelyne bowman Referred To Contact Diagnoses Neuro-endocrine carcinoma (HCC) Procedures study [id number] phase III cabozantinib Eren Cr MD [address] [facility] [address] [place] [address] Phone: tel: fax: [facility] at [facility] [address] [facility] Advanced Medicine 7th [place] [address] Phone: tel: Referral ID Status Reason Start Date Expiration Date Visits Re quested Visits Authorized [id number] Closed 06/21/2021 06/26/2024 1 99 Encounter Details Date Type Department Care Team (Late st Contact Info) Description 05/17/2022 11:45 AM RN CLINICAL REVIEW Office Visit [facility] [address] [place] [address] Eren Cr MD [address] [facility] [address] [place] [address] Malignant neoplasm metastatic to liver (CMS/HCC) (HCC) [...] file Legal Sex Female 2:41 PM RN CLINICAL REVIEW Gender Identity Not on file Sexual Orientation Straight 02/19/2021 9: 29 AM CDT Occupation Industry Job Start Date Job End Date retired Not on file Not on file Not on file documented as of this encounter Last Filed Vital Signs Vital Sign Reading Time Taken Comments Blood Pressure 149/76 05/17/2022 12:40 PM RN CLINICAL REVIEW Pulse 84 05/17/2022 12:40 PM RN CLINICAL REVIEW Temperature 36.2 ??C (97.1 ??F) 05/17/2022 12:[address] Respiratory Rate 16 05/17/2022 12:40 PM RN CLINICAL REVIEW Oxygen Saturation 96% 05/17/2022 12:40 PM RN CLINICAL REVIEW Inhaled Oxygen Concentration - - Weight 76.4 kg (168 lb 6.4 oz) 05/17/2022 12:40 PM RN CLINICAL REVIEW Height - - Body Mass Index 29.83 [...] rashes over exposed skin. . NEURO: A&Ox4, help desk assistant grossly intact by conversation, moving all extremities [...] the Problem List Disease Status Documentation for [facility] Neoplastic Disease Neuroendocrine carcinoma (CMS/HCC) (HCC) Cancer Disease Assessment for [facility] Date of diagnosis: 10/03/15 Disease status: stable Reason for disease status: imaging, symptoms, physical exam, lab results Date of cancer disease status assessment: 04/19/22 Malignant neoplasm metastatic to liver (CMS/HCC) (HCC) Cancer Disease Assessment for [facility] Date of diagnosis: 10/03/15 Disease status: not evaluated Date of cancer disease status assessment: 05/17/22 Neuro-endocrine carcinoma (CMS/HCC) (HCC) Bone metastasis (CMS/HCC) (HCC) H/O actinic keratosis Neuroendocrine tumor Cancer Treatment Plan Change for ICARE data: No change in treatment plan CLINICAL REVIEW documented in this encounter Plan of Treatment Not on file documented as of this encounter Results * Phosphorus (07/12/2022 9:48 AM RN CLINICAL REVIEW) Phosphorus, pl 2.6 2.3 - 4.5 mg/dL [facility] Comment:Testing performed by : [address] [address] Blood 07/12/2022 9:48 AM RN CLINICAL REVIEW 07/12/2022 10:02 AM RN CLINICAL REVIEW Eren Cr MD LAB BLOOD ORDERABLES Final Re sult Performing Organization Address [facility]/ZIP Co de Phone Number [facility] [place] [address] * Magnesium (07/12/2022 9:48 AM RN CLINICAL REVIEW) Magnesium 1.4 1.4 - 2.5 mg/dL [facility] Comment:Testing performed by : [address] [address] Blood 07/12/2022 9:48 AM RN CLINICAL REVIEW 07/12/2022 10:02 AM RN CLINICAL REVIEW Eren Cr MD LAB BLOOD ORDERABLES Final Re sult Performing Organization Address [facility] [place] [address] * (ABNORMAL) Comprehensive metabolic panel (07/12/2022 9:48 AM RN CLINICAL REVIEW) Sodium 141 135 - 145 mmol/L [facility] Comment:Testing performed by : [address] [address] Potassium, pl 3.9 3.3 - 4.9 mmol/L [facility] Chloride 108 97 - 110 mmol/L [facility] CO2 28 22 - 32 mmol/L [facility] Anion gap 5 2 - 15 mmol/L [facility] BUN 16 8 - 25 mg/dL [facility] Creatinine 1.11(H) 0.60 - 1.10 mg/dL [facility] Glucose 135 70 - 199 mg/dL [facility] [...] 2017. Calcium 10.3 8.5 - 10.3 mg/dL [facility] Bilirubin, total 0.6 0.1 - 1.2 mg/dL [facility] Protein, pl 6.4(L) 6.5 - 8.5 g/dL [facility] Albumin 4.0 3.5 - 5.0 g/dL [facility] Alk phos 59 40 - 130 Units/L [facility] ALT 24 7 - 45 Units/L [facility] AST 34 10 - 45 Units/L [facility] Blood 07/12/2022 9:48 AM RN CLINICAL REVIEW 07/12/2022 10:02 AM RN CLINICAL REVIEW us Eren Cr MD LAB BLOOD ORDERABLES Final Re sult [facility] [place] [address] * (ABNORMAL) Chromogranin A (07/12/2022 9:48 AM RN CLINICAL REVIEW) Chromogranin A 1006(H) <93 ng/mL [facility] Comment: Impaired renal or hepatic function or treatment with proton pump inhibitors may result in artifactual elevations of Chromogranin A. ADDITIONAL INFORMATION This test was developed and its performance characteristics determined by [facility] in a manner consistent with CLIA requirements. [...] a homogeneous time-resolved immunofluorescent assay manufactured by [employer] and performed on the [employer] Kryptor Compact Plus. ? Values obtained with different assay methods or kits may be different and cannot be used interchangeably. ? Test results cannot be interpreted as absolute evidence for the presence or absence of malignant disease. Test Performed by: [facility] [address] [place] [address] Carpet Installation Specialist: Immanuel Novak M.D. Ph.D.; IA# [id number] Blood 07/12/2022 9:48 AM RN CLINICAL REVIEW 07/12/2022 2:04 PM RN CLINICAL REVIEW Eren Cr MD LAB BLOOD ORDERABLES Final Re sult [facility] [place] [address] * (ABNORMAL) Comprehensive metabolic panel (07/12/2022 9:48 AM RN CLINICAL REVIEW) [facility] Sodium 140 135 - 145 mmol/L [facility] Comment:Testing performed by : [facility], [address] [place] [address] Potassium, pl 3.9 3.3 - 4.9 mmol/L [facility] Chloride 107 97 - 110 mmol/L [facility] CO2 27 22 - 32 mmol/L [facility] Anion gap 6 2 - 15 mmol/L [facility] BUN 16 8 - 25 mg/dL [facility] Creatinine 1.11(H) 0.60 - 1.10 mg/dL [facility] Glucose 134 70 - 199 mg/dL [facility] [...] 2017. Calcium 10.1 8.5 - 10.3 mg/dL [facility] Bilirubin, total 0.6 0.1 - 1.2 mg/dL [facility] Protein, pl 6.3(L) 6.5 - 8.5 g/dL [facility] Albumin 3.9 3.5 - 5.0 g/dL [facility] Alk phos 61 40 - 130 Units/L [facility] ALT 25 7 - 45 Units/L [facility] AST 34 10 - 45 Units/L [facility] Blood 07/12/2022 9:48 AM RN CLINICAL REVIEW 07/12/2022 10:02 AM RN CLINICAL REVIEW Eren Cr MD LAB BLOOD ORDERABLES Final Re sult [facility] [place] [address] * (ABNORMAL) CBC with auto differential (07/12/2022 9:48 AM RN CLINICAL REVIEW) [facility] WBC 3.3(L) 3.8 - 9.9 K/cumm [facility] Comment:Testing performed by : [address] [address] Hgb 12.1 11.9 - 15.5 g/dL [facility] Comment:Testing performed by : [address] [address] Hct 36.0 35.6 - 45.5 % [facility] Comment:Testing performed by : [address] [address] Plt 96(L) 150 - 400 K/cumm [facility] Comment:Testing performed by : [address] [address] MPV 10.7 9.1 - 12.3 fL [facility] RBC 3.67(L) 3.90 - 5.20 M/cumm [facility] MCV 98.1(H) 81.3 - 96.4 fL [facility] MCH 33.0 27.1 - 33.3 pg [facility] MCHC 33.6 32.3 - 35.7 g/dL [facility] RDW CV 14.3 11.1 - 14.9 % [facility] RDW SD 50.9(H) 35.7 - 48.1 fL [facility] NRBC abs 0.00 0.00 - 0.01 K/cumm [facility] Blood 07/12/2022 9:48 AM RN CLINICAL REVIEW 07/12/2022 10:02 AM RN CLINICAL REVIEW Eren Cr MD LAB BLOOD ORDERABLES Final Re sult Performing Organization Address [facility]/ZIP Co de Phone Number [facility] [place] [address] * (ABNORMAL) Vitamin D 25 hydroxy (07/12/2022 9:48 AM RN CLINICAL REVIEW) Pathologist [facility] Vitamin D 25-OH 19(L) 30 - 80 ng/mL [facility] Blood 07/12/2022 9:48 AM RN CLINICAL REVIEW 07/12/2022 11:41 AM RN CLINICAL REVIEW Eren Cr MD LAB BLOOD ORDERABLES Final Re sult [facility] [place] [address] * Phosphorus (07/12/2022 9:48 AM RN CLINICAL REVIEW) Pathologist [facility] Phosphorus, pl 2.7 2.3 - 4.5 mg/dL [facility] Comment:Testing performed by : [facility], [address] [place] [address] Blood 07/12/2022 9:48 AM RN CLINICAL REVIEW 07/12/2022 10:02 AM RN CLINICAL REVIEW us Eren Cr MD LAB BLOOD ORDERABLES Final Re sult [facility] [place] [address] * (ABNORMAL) Lipid panel (07/12/2022 9:48 AM RN CLINICAL REVIEW) Cholesterol 183 30 - 199 mg/dL [facility] [...] 2018. Triglycerides 262(H) <=149 mg/dL [facility] Comment: Interpretive Data [...] revised on 2018. HDL 55 >=40 mg/dL [facility] Comment: Interpretive Data [...] on 2018. LDL, calculated 76 <=129 mg/dL [facility] Comment: [...] revised on 2018. Non-HDL Cholesterol 128 mg/dL [facility] Comment: Interpretive Data [...] ratio 3 [facility] Blood 07/12/2022 9:48 AM RN CLINICAL REVIEW 07/12/2022 11:41 AM RN CLINICAL REVIEW us Eren Cr MD LAB BLOOD ORDERABLES Final Re sult [facility] [place] [address] * (ABNORMAL) Chromogranin A (06/14/2022 9:33 AM RN CLINICAL REVIEW) Chromogranin A 1093(H) <93 ng/mL [facility] Comment: Impaired renal or hepatic function or treatment with proton pump inhibitors may result in artifactual elevations of Chromogranin A. ADDITIONAL INFORMATION This test was developed and its performance characteristics determined by [facility] in a manner consistent with CLIA requirements. [...] a homogeneous time-resolved immunofluorescent assay manufactured by [employer] and performed on the [employer] Planneror Compact Plus. ? Values obtained with different assay methods or kits may be different and cannot be used interchangeably. ? Test results cannot be interpreted as absolute evidence for the presence or absence of malignant disease. Test Performed by: [facility] [address] [place] [address] Carpet Installation Specialist: Immanuel Novak M.D. Ph.D.; CLIA# [id number] Blood 06/14/2022 9:33 AM RN CLINICAL REVIEW 06/14/2022 10:32 AM RN CLINICAL REVIEW us Eren Cr MD LAB BLOOD ORDERABLES Final Re sult [facility] [place] [address] * (ABNORMAL) Comprehensive metabolic panel (06/14/2022 9:33 AM RN CLINICAL REVIEW) Sodium 139 135 - 145 mmol/L [facility] Comment:Testing performed by : [facility], [address] [place] [address] Potassium, pl 3.6 3.3 - 4.9 mmol/L [facility] Chloride 109 97 - 110 mmol/L [facility] CO2 25 22 - 32 mmol/L [facility] Anion gap 5 2 - 15 mmol/L [facility] BUN 16 8 - 25 mg/dL [facility] Creatinine 1.15(H) 0.60 - 1.10 mg/dL [facility] Glucose 112 70 - 199 mg/dL [facility] [...] 2017. Calcium 10.3 8.5 - 10.3 mg/dL [facility] Bilirubin, total 0.4 0.1 - 1.2 mg/dL [facility] Protein, pl 6.1(L) 6.5 - 8.5 g/dL [facility] Albumin 4.0 3.5 - 5.0 g/dL [facility] Alk phos 72 40 - 130 Units/L [facility] ALT 22 7 - 45 Units/L [facility] AST 32 10 - 45 Units/L [facility] Blood 06/14/2022 9:33 AM RN CLINICAL REVIEW 06/14/2022 9:35 AM RN CLINICAL REVIEW us Eren Cr MD LAB BLOOD ORDERABLES Final Re sult [facility] [place] [address] * (ABNORMAL) CBC with auto differential (06/14/2022 9:33 AM RN CLINICAL REVIEW) WBC 3.3(L) 3.8 - 9.9 K/cumm [facility] Comment:Testing performed by : [address] [address] Hgb 11.4(L) 11.9 - 15.5 g/dL [facility] Comment:Testing performed by : [address] [address] Hct 34.3(L) 35.6 - 45.5 % [facility] Comment:Testing performed by : [address] [address] Plt 107(L) 150 - 400 K/cumm [facility] Comment:Testing performed by : [address] [address] MPV 10.7 9.1 - 12.3 fL [facility] RBC 3.49(L) 3.90 - 5.20 M/cumm [facility] MCV 98.3(H) 81.3 - 96.4 fL [facility] MCH 32.7 27.1 - 33.3 pg [facility] MCHC 33.2 32.3 - 35.7 g/dL [facility] RDW CV 13.7 11.1 - 14.9 % [facility] RDW SD 49.1(H) 35.7 - 48.1 fL [facility] NRBC abs 0.00 0.00 - 0.01 K/cumm [facility] Blood 06/14/2022 9:33 AM RN CLINICAL REVIEW 06/14/2022 9:35 AM RN CLINICAL REVIEW Eren Cr MD LAB BLOOD ORDERABLES [place] [address] * (ABNORMAL) Vitamin D 25 hydroxy (06/14/2022 9:33 AM RN CLINICAL REVIEW) Vitamin D 25-OH 20(L) 30 - 80 ng/mL [facility] Blood 06/14/2022 9:33 AM RN CLINICAL REVIEW 06/14/2022 10:32 AM RN CLINICAL REVIEW Eren Cr MD LAB BLOOD ORDERABLES Final Re sult Performing Organization Address [facility] Co de Phone Number [facility] [employer] [place] [address] * Phosphorus (06/14/2022 9:33 AM RN CLINICAL REVIEW) Phosphorus, pl 2.3 2.3 - 4.5 mg/dL [facility] Comment:Testing performed by : [facility], [address] [place] [address] Blood 06/14/2022 9:33 AM RN CLINICAL REVIEW 06/14/2022 9:35 AM RN CLINICAL REVIEW Eren Cr MD LAB BLOOD ORDERABLES Final Re sult Performing Organization Address [facility]/ZIP Co de Phone Number [facility] [place] [address] * (ABNORMAL) Lipid panel (06/14/2022 9:33 AM RN CLINICAL REVIEW) [facility] Signature Cholesterol 155 30 - 199 mg/dL [facility] Comment: [...] on 2018. LDL, calculated 66 <=129 mg/dL [facility] Comment: [...] 2018. Non-HDL Cholesterol 99 mg/dL [facility] Comment: Interpretive Data Ages [...] ratio 3 [facility] Blood 06/14/2022 9:33 AM RN CLINICAL REVIEW 06/14/2022 10:32 AM RN CLINICAL REVIEW Eren Cr MD LAB BLOOD ORDERABLES Final Re sult Performing Organization Address City/[facility]/ZIP Co de Phone Number [facility] [place] [address] * Magnesium (06/14/2022 9:33 AM RN CLINICAL REVIEW) Magnesium 1.5 1.4 - 2.5 mg/dL [facility] Comment:Testing performed by : [facility], [address] [place] [address] Blood 06/14/2022 9:33 AM RN CLINICAL REVIEW 06/14/2022 9:35 AM RN CLINICAL REVIEW us Eren Cr MD LAB BLOOD ORDERABLES Final Re sult Performing Organization Address [facility] Co de Phone Number [facility] [place] [address] documented in this encounter Visit Diagnoses Diagnosis [...] 05/28/2022 documented in this encounter Care Teams Behavioral Technician Relationship Specialty Start Date End Date Julio César Briseno MD PCP - General 10/01/16 Eren Cr MD Referring Physician Medical Oncology 11/25/18 Yohana Bowen MD Radiation Oncologist Radiation Oncology 11/25/18 documented as of this encounter
--- OUTSIDE RECORDS SUMMARY | 2024-06-26 02:03 | XMS_ITS | Encounter Summary ---
Author Organization [facility] Healthcare Address [address] [place] [address] Care Team Providers Care Bunch Breaker Name Role Phone Julio César Briseno MD Primary Care Provider [phone] Eren Cr MD Unavailable [phone] Yohana Bowen MD Unavailable Encounter Details Date Type Department Care Team (Latest Contact Info) Description 06/21/2022 11:00 AM [employer] - 06/21/2022 11:59 PM [employer] Hospital Encounter [facility] Advanced Medicine ([facility]) [address] [place] [id number] Dehydration (Primary Dx); Neuro-endocrine carcinoma (CMS/HCC) [...] Legal Sex Female 2:41 PM [employer] Gender Identity Not on file Sexual Orientation Straight 02/19/2021 9: 29 AM CDT Occupation Industry Job Start Date Job End Date retired Not on file Not on file Not on file documented as of this encounter Last Filed Vital Signs Vital Sign Reading Time Taken Comments Blood Pressure 169/77 06/21/2022 1:30 PM [employer] Pulse 60 06/21/2022 1:30 PM [employer] Temperature 36.7 ??C (98.1 ??F) 06/21/2022 11:[address] Respiratory Rate 16 06/21/2022 1:30 PM [employer] Oxygen Saturation 100% 06/21/2022 1:30 PM [employer] Inhaled Oxygen Concentration - - Weight - - Height - - Body Mass Index - - documented in this encounter Discharge Instructions * Patient Instructions* Xochitl Perdue RN - 06/21/2022 11:00 AM [employer] .After 4:30 PM during the week, on weekends and holidays, call [phone] and ask to have the Financial Systems Director Physician paged for you. Saturday through Saturday, 8 AM to 4:30 PM, call [phone] [facility] Oncology Physician at [facility] Advanced Medicine and ask for [...] any non-prescription medicine without your doctor's approval [employer] documented in this encounter Medications at Time [...] (thirty) days Last dose [facility]/15[facility] and needs Cavilon [...] capsuleIndicatio ns:supplement Take 1 tablet by mouth pipeline welder before breakfast 07/04/2016 4 cholecalciferol (VITAMIN D-3) 2,000 unit capsule Take 1 capsule (2,000 Units total) by mouth daily 30 capsule 2 04/25/2019 3 clotrimazole-bet amethasone (LOTRISONE) cream Apply 1 Application topically daily as needed (rash) 4 coenzyme B56-bophlrx E 100-5 mg-unit capsuleIndicatio ns:supplement Take 1 tablet by mouth pipeline welder before breakfast 4 diphenoxylate-at ropine (LOMOTIL) 2.5-0.025 [...] dose).?? Avoid Jas's Wort, grapefruit products and Bradley oranges while on treatment. placed on hold 09/26/22 for covid 01/29/2022 4 levothyroxine (SYNTHROID) 88 mcg tabletIndication s:Hypothyroidism due to medication TAKE 1 TABLET (88 MCG TOTAL) BY MOUTH AIR CONTROL ELECTRONICS OPERATOR BEFORE BREAKFAST 30 tablet 1 06/11/2022 2 [...] Xochitl Perdue RN - 06/21/2022 11:00 AM [employer] Encounter addended by: Xochitl Perdue RN on: 06/21/2022 1:49 PM Actions taken: Charge Capture section accepted, Flowsheet accepted [employer] documented in this encounter Plan of Treatment [...] euroendocrine carcinoma (HCC) Given 06/21/2022 11:37 AM [employer] 500 Units sodium chloride 0.9% bolus 1,000 mL 1,000 mL, intravenous, at 500 mL/hr, Administer over 2 Hours, Once, On Lydia 06/21/22 at 1140, For 1 doseIndications:Dehydration,N euroendocrine carcinoma (HCC) New Bag 06/21/2022 11:36 AM [employer] 1,000 mL 500 mL/hr documented in this encounter Orders Appointment Requests Count Last Ordered Date Fi rst Ordered Date ONCBCN INFUSION APPT REQUEST 1 06/21/2022 documented in this encounter Care Teams Bunch Breaker Relationship Specialty Start Date End Date Julio César Briseno MD PCP - General 10/01/16 Eren Cr MD Referring Physician Medical Oncology 11/25/18 Yohana Bowen MD Radiation Oncologist Radiation Oncology 11/25/18 documented as of this encounter
--- OUTSIDE RECORDS SUMMARY | 2024-06-26 02:03 | XMS_ITS | Encounter Summary ---
Author Organization [facility] Healthcare Address [facility] [place] [address] Care Team Providers Care Director Of Enrollment Name Role Phone Julio César Briseno MD Primary Care Provider [phone] Eren Cr MD Unavailable [phone] Yohana Bowen MD Unavailable Reason for Visit * Reason Comments OP Infusion Encounter Details Date Type Department Care Team (Latest Contact Info) Description 06/28/2022 10:45 AM SHEET CATCHER - 06/28/2022 11:59 PM SHEET CATCHER Hospital Encounter [facility] ([facility]) [address] [place] [address] Dehydration (Primary Dx); Neuro-endocrine carcinoma (CMS/HCC) [...] file Legal Sex Female 2:41 PM SHEET CATCHER Gender Identity Not on file Sexual Orientation Straight 02/19/2021 9: 29 AM CDT Occupation Industry Job Start Date Job End Date retired Not on file Not on file Not on file documented as of this encounter Last Filed Vital Signs Vital Sign Reading Time Taken Comments Blood Pressure 157/82 06/28/2022 11:01 AM SHEET CATCHER Pulse 75 06/28/2022 11:01 AM SHEET CATCHER Temperature 36.7 ??C (98 ??F) 06/28/2022 11:01 AM SHEET CATCHER Respiratory Rate 16 06/28/2022 11:01 AM SHEET CATCHER Oxygen Saturation 96% 06/28/2022 11:01 AM SHEET CATCHER Inhaled Oxygen Concentration - - Weight - [...] (thirty) days Last dose 11/15/[facility] has [facility] and needs Cavilon [...] ns:supplement Take 1 tablet by mouth early childhood coordinator before breakfast 07/04/2016 4 cholecalciferol (VITAMIN D-3) 2,000 unit capsule Take 1 capsule (2,000 Units total) by mouth daily 30 capsule 2 04/25/2019 3 clotrimazole-bet amethasone (LOTRISONE) cream Apply 1 Application topically daily as needed (rash) 4 coenzyme [id number]-[id number] E 100-5 mg-unit capsuleIndicatio ns:supplement Take 1 tablet by mouth early childhood coordinator before breakfast 4 diphenoxylate-at ropine (LOMOTIL) [...] as needed for rhinitis or allergies 4 [facility] cabozantinib/maris cebo (2017-08-122/A02 1602) 20 mg tabletIndication s:cancer study Take 1 tablet (20 mg total) by mouth nightly Take on an empty stomach (no food for 2 hours before and 1 hour after each dose).?? Avoid Jas's Wort, grapefruit products and [place] oranges while on treatment. placed on hold 09/26/22 for covid 01/29/2022 4 levothyroxine (SYNTHROID) 88 mcg tabletIndication s:Hypothyroidism due to medication TAKE 1 TABLET (88 MCG TOTAL) BY MOUTH MOTORCYCLE SERVICE TECHNICIAN BEFORE BREAKFAST 30 tablet 1 06/11/2022 2 [...] 11:00 AM CST Pt presented to the [facility] for hydration. VS WNL. PAC accessed. Brisk blood return, flushes easily. Administered 1L NS. Pt tolerated well. VS WNL. PAC flushed, heparinized, and discontinued. AVS declined. Pt ambulatory and discharged home accompanied by . T CATCHER documented in this encounter Plan of Treatment [...] euroendocrine carcinoma (HCC) Given 06/28/2022 12:40 PM SHEET CATCHER 500 Units sodium chloride 0.9% bolus 1,000 mL 1,000 mL, intravenous, at 500 mL/hr, Administer over 2 Hours, Once, On Lydia 06/28/22 at 1125, For 1 doseIndications:Dehydration,N euroendocrine carcinoma (HCC) New Bag 06/28/2022 11:03 AM SHEET CATCHER 1,000 mL 500 mL/hr documented in this [...] 06/28/2022 documented in this encounter Care Teams Director Of Enrollment Relationship Specialty Start Date End Date Julio César Briseno MD PCP - General 10/01/16 Eren Cr MD Referring Physician Medical Oncology 11/25/18 Yohana Bowen MD Radiation Oncologist Radiation Oncology 11/25/18 documented as of this encounter
--- OUTSIDE RECORDS SUMMARY | 2024-06-26 02:03 | XMS_ITS | Encounter Summary ---
Author Organization [facility] Address [address] [place] [address] Phone Care Team Providers Care Software Quality Analyst Name Role Phone Julio César Briseno MD Primary Care Provider [phone] Eren Cr MD Unavailable [phone] Yohana Bowen MD Unavailable Reason for Visit * Episode Based Medications (Routine) - Closed Specialty Diagnoses / Procedures Referred By Evelyne bowman Referred To Contact Diagnoses Neuro-endocrine carcinoma (HCC) Procedures study [id number] phase III cabozantinib Eren Cr MD [address] [facility] [address] [place] [address] Phone: tel: fax: [facility] at [facility] and [facility] [address] [facility] Advanced Medicine 7th [place] [address] Phone: tel: Referral ID Status Reason Start Date Expiration Date Visits Re quested Visits Authorized [id number] Closed 06/21/2021 06/26/2024 1 99 Encounter Details Date Type Department Care Team (Latest Contact Info) Description 07/12/2022 12:00 PM SEVERITY OF ILLNESS COORDINATOR Research Med Pick-Up/CTRU Dolly Driver [facility] Oncology [address] [place] [address] Neuro-endocrine carcinoma (CMS/HCC) (HCC) (Primary Dx) Social [...] on file Legal Sex Female 2:41 PM SEVERITY OF ILLNESS COORDINATOR Gender Identity Not on file Sexual [...] Date First Ordered Date [facility] cabozantinib/pl acebo (2017-08-122/V263193) tablet 20 mg 1 07/12/2022 Nursing Count Last Ordered Date First Orde red Date ONCBCN STUDY COMMUNICATION 2 1 07/12/2022 ONCBCN TREATMENT PARAMETERS 1 1 07/12/2022 RESEARCH STUDY CLARIFICATION ORDER 1 2022 Appointment Requests Count Last Ordered Date Fi rst Ordered Date ONCBCN TAKE HOME STUDY DRUG APPT 1 07/12/19 23 documented in this encounter Care Teams Software Quality Analyst Relationship Specialty Start Date End Date Julio César Briseno MD PCP - General 10/01/16 Eren Cr MD Referring Physician Medical Oncology 11/25/18 Yohana Bowen MD Radiation Oncologist Radiation Oncology 11/25/18 documented as of this encounter
--- OUTSIDE RECORDS SUMMARY | 2024-06-26 02:03 | XMS_ITS | Encounter Summary ---
Author Organization [facility] Address [address] [place] [address] Phone Care Team Providers Care Sales Office Manager Name Role Phone Julio César Briseno MD Primary Care Provider Eren Cr MD Unavailable [phone] Yohana Bowen MD Unavailable Encounter Details Date Type Department Care Team (Late st Contact Info) Description 04/19/2022 Orders Only [facility] Oncology [address] [place] [address] Eren Cr MD [address] [place], [place] [id number] Social History Tobacco Use Types Packs/Day Years [...] on file Legal Sex Female 2:41 PM CHART SNATCHER Gender Identity Not on file Sexual Orientation Straight 02/19/2021 9: 29 AM CDT Occupation Industry Job Start Date Job End Date retired Not on file Not on file Not on file documented as of this encounter Plan of Treatment Not on file documented as of this encounter Visit Diagnoses Not on filedocumented in this encounter Care Teams Sales Office Manager Relationship Specialty Start Date End Date Julio César Briseno MD PCP - General 10/01/16 Eren Cr MD Referring Physician Medical Oncology 11/25/18 Yohana Bowen MD Radiation Oncologist Radiation Oncology 11/25/18 documented as of this encounter
--- OUTSIDE RECORDS SUMMARY | 2024-06-26 02:03 | XMS_ITS | Encounter Summary ---
Author Organization [facility] Address [address] [place] [address] Phone Care Team Providers Care Railroad Signal And Switch Operator Name Role Phone Julio César Briseno MD Primary Care Provider [phone] Eren Cr MD Unavailable [phone] Yohana Bowen MD Unavailable Reason for Visit * Episode Based Medications (Routine) - Closed Specialty Diagnoses / Procedures Referred By Evelyne bowman Referred To Contact Diagnoses Neuro-endocrine carcinoma (HCC) Procedures study [id number] phase III cabozantinib Eren Cr MD [address] [facility] [address] [place] [address] Phone: tel: fax: [facility] at [facility] and [facility] [address] [facility] Advanced Medicine 7th [place] [address] Phone: tel: Referral ID Status Reason Start Date Expiration Date Visits Re quested Visits Authorized [id number] Closed 06/21/2021 06/26/2024 1 99 Encounter Details Date Type Department Care Team (Latest Contact Info) Description 06/14/2022 11:00 AM ACTIVITIES MANAGER Research Med Pick-Up/CTRU Health Information Tech [facility] Oncology [address] [place] [address] Neuro-endocrine carcinoma (CMS/HCC) (HCC) (Primary Dx) Social [...] on file Legal Sex Female 2:41 PM ACTIVITIES MANAGER Gender Identity Not on file Sexual [...] Date First Ordered Date [facility] cabozantinib/pl acebo (2018-02-/[id number]) tablet 20 mg 1 06/14/2022 Nursing Count Last Ordered Date First Orde red Date ONCBCN CLINICAL PHARMACIST REVIEW 1 022 ONCBCN STUDY COMMUNICATION 2 1 06/14/2022 ONCBCN TREATMENT PARAMETERS 1 1 06/14/2022 Appointment Requests Count Last Ordered Date Fi rst Ordered Date ONCBCN TAKE HOME STUDY DRUG APPT 1 06/14/20 22 documented in this encounter Care Teams Railroad Signal And Switch Operator Relationship Specialty Start Date End Date Julio César Briseno MD PCP - General 10/01/16 Eren Cr MD Referring Physician Medical Oncology 11/25/18 Yohana Bowen MD Radiation Oncologist Radiation Oncology 11/25/18 documented as of this encounter
--- OUTSIDE RECORDS SUMMARY | 2024-06-26 02:03 | XMS_ITS | Encounter Summary ---
Author Organization [facility] Healthcare Address [address] [place] [address] Care Team Providers Care Body And Fender Worker Name Role Phone Julio César Briseno MD Primary Care Provider [phone] Eren Cr MD Unavailable [phone] Yohana Bowen MD Unavailable Reason for Referral * Diagnostic Imaging (Routine) - Closed Specialty Diagnoses / Procedures Referred By Contac t Referred To Contact Radiology Diagnoses Primary malignant neuroendocrine tumor of ileum (HCC) Procedures IR Contrast Injection Evaluation Central Venous Access Device Consult to Interventional Radiology Eren Cr MD [address] [place] [address] Phone: tel: fax: [facility] [address] [place] [address] Referral ID Status Reason Start Date Expiration Date Visits Re quested Visits Authorized [id number] Closed 06/07/2022 07/07/[address] SIGNAL TECHNICIAN Reason for Visit * Diagnostic Imaging (Routine) - Closed Specialty Diagnoses / Procedures Referred By Contac t Referred To Contact Radiology Diagnoses Primary malignant neuroendocrine tumor of ileum (HCC) Procedures IR Contrast Injection Evaluation Central Venous Access Device Consult to Interventional Radiology Eren Cr MD [address] [place] [address] Phone: tel: fax: [facility] [address] [facility] [place] [address] Referral ID Status Reason Start Date Expiration Date Visits Re quested Visits Authorized [id number] Closed 06/07/2022 07/07/2023 1 1 Encounter Details Date Type Department Care Team (Latest Contact Info) Description 06/12/2022 11:08 AM RAILROAD SIGNAL TECHNICIAN - 06/12/2022 11:59 PM RAILROAD SIGNAL TECHNICIAN Hospital Encounter [facility] Radiology [facility] [address] [place] [address] Primary malignant neuroendocrine tumor of ileum (CMS/HCC) [...] file Legal Sex Female 2:41 PM RAILROAD SIGNAL TECHNICIAN Gender Identity Not on file Sexual Orientation Straight 02/19/2021 9: 29 AM CDT Occupation Industry Job Start Date Job End Date retired Not on file Not on file Not on file documented as of this encounter Last Filed Vital Signs Vital Sign Reading Time Taken Comments Blood Pressure 157/71 06/12/2022 12:40 PM RAILROAD SIGNAL TECHNICIAN Pulse 58 06/12/2022 12:40 PM RAILROAD SIGNAL TECHNICIAN Temperature 36.6 ??C (97.9 ??F) 06/12/2022 12:[address] Respiratory Rate 16 06/12/2022 12:40 PM RAILROAD SIGNAL TECHNICIAN Oxygen Saturation 97% 06/12/2022 12:40 PM RAILROAD SIGNAL TECHNICIAN Inhaled Oxygen Concentration - - Weight - - Height - - Body Mass Index - - documented in this encounter Discharge Instructions * Discharge Instructions* Julio Klein MD - 06/12/2022 12:36 PM RAILROAD SIGNAL TECHNICIAN Interventional Radiology Outpatient Discharge Instructions/Note Diagnosis:Port not [...] draining. To contact an Interventional Radiologist at [facility] call [phone] Saturday through Saturday from 7:30am-4:30pm. At all other times call [phone] and ask that the Interventional Radiologist be paged. To contact an Interventional Radiologist at [facility] call [phone] Saturday through Saturday from 7:30am-3:30pm. Special instructions: Please call Interventional Radiology for any procedure related questions or problems including: Extreme swelling or bruising at the site. Unusual drainage or bleeding from procedure site. Fever of 101.5 F for more than 24 hours. Severe procedure related pain. Follow up care: [] Return to Interventional Radiology on at Please come to: [] 3rd Floor [facility] [] [address] [facility] [] [facility] [] [facility] Please call [phone] to schedule a follow up appointment. You need to return in ROAD SIGNAL TECHNICIAN documented in this encounter Medications at Time [...] capsuleIndicatio ns:supplement Take 1 tablet by mouth assembler latches and springs before breakfast 07/04/2016 4 cholecalciferol (VITAMIN D-3) 2,000 unit capsule Take 1 capsule (2,000 Units total) by mouth daily 30 capsule 2 04/25/2019 3 clotrimazole-bet amethasone (LOTRISONE) cream Apply 1 Application topically daily as needed (rash) 4 coenzyme Z35-jkvgfkz E 100-5 mg-unit capsuleIndicatio ns:supplement Take 1 tablet by mouth assembler latches and springs before breakfast 4 diphenoxylate-at ropine (LOMOTIL) 2.5-0.025 [...] and 1 hour after each dose).?? Avoid [place]'s Wort, grapefruit products and [place] oranges while on treatment. placed on hold 09/26/22 for covid 01/29/2022 4 levothyroxine (SYNTHROID) 88 mcg tabletIndication s:Hypothyroidism due to medication TAKE 1 TABLET (88 MCG TOTAL) BY MOUTH HEADWAITER/HEADWAITRESS BEFORE BREAKFAST 30 tablet 1 06/11/2022 2 [...] sterile dressing applied to port access site. ROAD SIGNAL TECHNICIAN documented in this encounter Miscellaneous Notes * Post-Procedure Note - Julio Klein MD - 06/12/2022 10:00 AM RAILROAD SIGNAL TECHNICIAN Radiology Brief Post Procedure Note Attending: Lina Straddle Buggy Operator: Latoya Sedation/Anesthesia: None Pre-Op/Pre-Procedure Diagnosis: Port not aspirating Post-Op/Post-Procedure Diagnosis: same Procedure Performed: Port check Procedure Findings: No fibrin sheath brisk antegrade flow. I couldn't aspirate. However I think injected hard with 10 cc of NS and was able to aspirate without difficulty. Complications: None Estimated Blood Loss: None Specimens: None Condition: Stable Full report to follow. ROAD SIGNAL TECHNICIAN * Pre-Procedure Note - Soniya Flores PA - 06/12/2022 10:00 AM RAILROAD SIGNAL TECHNICIAN Radiology Procedure Plan Indication: neuroendocrine cancer with right chest port in place. Difficulty with blood return, tried alteplase x2. 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 Narrative 06/12/2022 4:56 PM RAILROAD SIGNAL TECHNICIAN EXAMINATION: ??CENTRAL VENOUS PORT CHECK HISTORY/INDICATION: ??71-year-old [...] was obtained. Prior to beginning the procedure, Avella Protocol was performed to confirm the patient's [...] was obtained. Prior to beginning the procedure, Avella Protocol was performed to confirm the patient's [...] develop at the port Dictated by: Julio Kleni M.D. The radiology attending physician has personally [...] Indwelling Vascular Catheter Given 06/12/2022 12:24 PM RAILROAD SIGNAL TECHNICIAN 500 Units ioversoL (OPTIRAY 350) injection As needed, Starting on Sat06/12/22 at 1215, Intra-Op Given 06/12/2022 12:15 PM RAILROAD SIGNAL TECHNICIAN 30 mL documented in this encounter Orders Discharge Count Last Ordered Date First Orde red Date DISCHARGE PATIENT 1 06/12/2022 documented in this encounter Care Teams Body And Fender Worker Relationship Specialty Start Date End Date Julio César Briseno MD PCP - General 10/01/16 Eren Cr MD Referring Physician Medical Oncology 11/25/18 Yohana Bowen MD Radiation Oncologist Radiation Oncology 11/25/18 documented as of this encounter
--- OUTSIDE RECORDS SUMMARY | 2024-06-26 02:03 | XMS_ITS | Encounter Summary ---
Author Organization [facility] Address [address] [place] [address] Phone Care Team Providers Care Transfer Table Operator Helper Name Role Phone Julio César Briseno MD Primary Care Provider [phone] Eren Cr MD Unavailable [phone] Yohana Bowen MD Unavailable Encounter Details Date Type Department Care Team (Late st Contact Info) Description 06/13/2022 Orders Only [facility] Oncology [address] [place] [address] Eren Cr MD [address] [facility] [address] [place], [place] [id number] Dehydration (Primary Dx); Neuro-endocrine carcinoma (CMS/HCC) (HCC) [...] on file Legal Sex Female 2:41 PM MULTI CARE TECHNICIAN Gender Identity Not on file Sexual [...] 06/21/2022 documented in this encounter Care Teams Transfer Table Operator Helper Relationship Specialty Start Date End Date Julio César Briseno MD PCP - General 10/01/16 Eren Cr MD Referring Physician Medical Oncology 11/25/18 Yohana Bowen MD Radiation Oncologist Radiation Oncology 11/25/18 documented as of this encounter
--- OUTSIDE RECORDS SUMMARY | 2024-06-26 02:03 | XMS_ITS | Encounter Summary ---
Author Organization [facility] Address [address] [place] [address] Phone Care Team Providers Care Pickling Grader Name Role Phone Julio César Briseno MD Primary Care Provider [phone] Eren Cr MD Unavailable [phone] Yohana Bowen MD Unavailable Reason for Visit * Reason Comments Injections Kenneth and Ene herr Encounter Details Date Type Department Care Team (Late st Contact Info) Description 07/12/2022 12:00 PM CUSTOMER SUCCESS MANAGER Infusion [facility] Oncology [address] [place] [address] Dehydration; Neuro-endocrine carcinoma (CMS/HCC) (HCC) Social History [...] Legal Sex Female 2:41 PM CUSTOMER SUCCESS MANAGER Gender Identity Not on file Sexual [...] 07/12/2022 documented in this encounter Care Teams Pickling Grader Relationship Specialty Start Date End Date Julio César Briseno MD PCP - General 10/01/16 Eren Cr MD Referring Physician Medical Oncology 11/25/18 Yohana Bowen MD Radiation Oncologist Radiation Oncology 11/25/18 documented as of this encounter
--- OUTSIDE RECORDS SUMMARY | 2024-06-26 02:03 | XMS_ITS | Encounter Summary ---
Author Organization [facility] Address [address] [place] [address] Phone Care Team Providers Care Hogshead Weigher Name Role Phone Julio César Briseno MD Primary Care Provider Eren Cr MD Unavailable [phone] Yohana Bowen MD Unavailable Encounter Details Date Type Department Care Team (Late st Contact Info) Description 05/17/2022 Orders Only [facility] Oncology [address] [place] [address] Eren Cr MD [address] [place], [place] [id number] Social History Tobacco Use Types Packs/Day Years [...] file Legal Sex Female 2:41 PM PORTABLE MACHINE CUTTER Gender Identity Not on file Sexual Orientation Straight 02/19/2021 9: 29 AM CDT Occupation Industry Job Start Date Job End Date retired Not on file Not on file Not on file documented as of this encounter Plan of Treatment Not on file documented as of this encounter Visit Diagnoses Not on filedocumented in this encounter Care Teams Hogshead Weigher Relationship Specialty Start Date End Date Julio César Briseno MD PCP - General 10/01/16 Eren Cr MD Referring Physician Medical Oncology 11/25/18 Yohana Bowen MD Radiation Oncologist Radiation Oncology 11/25/18 documented as of this encounter
--- OUTSIDE RECORDS SUMMARY | 2024-06-26 02:03 | XMS_ITS | Encounter Summary ---
Author Organization [facility] Address [address] [place] [address] Phone Care Team Providers Care Apprenticeship Training Representative Name Role Phone Julio César Briseno MD Primary Care Provider [phone] Eren Cr MD Unavailable [phone] oYhana Bowen MD Unavailable Reason for Visit * Episode Based Medications (Routine) - Authorized Specialty Diagnoses / Procedures Referred By Contellen t Referred To Contact Diagnoses Hypomagnesemia Eren Cr MD [address] [facility] [address] [place] [address] Phone: tel: fax: [facility] at [facility] 7th [place] [address] Phone: tel: Referral ID Status Reason Start Date Expiration Date V isits Requested Visits Authorized [id number] Authorized 11/13/2021 04/01/2025 30 Encounter Details Date Type Department Care Team (Late st Contact Info) Description 05/10/2022 3:30 PM CDT Infusion [facility] Oncology [address] [place] [address] Advanced Medicine 7th [place] [address] Malignant neoplasm metastatic to liver [...] on file Legal Sex Female 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
--- OUTSIDE RECORDS SUMMARY | 2024-06-26 02:03 | XMS_ITS | Encounter Summary ---
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) Procedures [place] OCTREOTIDE INJECTION, DEPOT Octreotide 28 Day Cycles - Carcinoid Eren Cr MD [address] [place] [address] Phone: tel: fax: [address] [address] Phone: tel: fax: Referral ID Status Reason Start Date Expiration Date V isits Requested Visits Authorized [id number] Authorized 11/28/2017 02/05/2025 1 150 Encounter Details Date Type Department Care Team (Late st Contact Info) Description 04/19/2022 12:00 PM CDT Infusion [facility] Oncology [address] [place] [address] Neuroendocrine carcinoma (CMS/HCC) (HCC) (Primary Dx); Malignant [...] file Legal 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
--- OUTSIDE RECORDS SUMMARY | 2024-06-26 02:03 | XMS_ITS | Encounter Summary ---
Author Organization [facility] Healthcare Address [address] [place] [address] Care Team Providers Care Structural Manager Name Role Phone Julio César Briseno MD Primary Care Provider [phone] Eren Cr MD Unavailable Yohana Bowen MD Unavailable Encounter Details Date Type Department Care Team (Latest Contact Info) Description 05/17/2022 7:57 AM PAGE DESIGNER - 05/17/2022 11:59 PM PAGE DESIGNER Hospital Encounter [address] [address] Neuroendocrine carcinoma (CMS/HCC) (HCC); Malignant neoplasm metastatic [...] capsuleIndicatio ns:supplement Take 1 tablet by mouth candle cutter before breakfast 07/04/2016 4 cholecalciferol (VITAMIN D-3) 2,000 unit capsule Take 1 capsule (2,000 Units total) by mouth daily 30 capsule 2 04/25/2019 3 clotrimazole-bet amethasone (LOTRISONE) cream Apply 1 Application topically daily as needed (rash) 4 coenzyme [id number] 100-5 mg-unit capsuleIndicatio ns:supplement Take 1 tablet by mouth candle cutter before breakfast 4 diphenoxylate-at ropine (LOMOTIL) 2.5-0.025 [...] and 1 hour after each dose).?? Avoid [place]'s Wort, grapefruit products and [place] oranges while on treatment. placed on hold 09/26/22 for covid 01/29/2022 4 levothyroxine (SYNTHROID) 88 mcg tabletIndication s:Hypothyroidism due to medication TAKE 1 TABLET (88 MCG TOTAL) BY MOUTH VENDING TECHNICIAN BEFORE BREAKFAST 30 tablet 1 05/14/2022 2 [...] RATIO, URINE, RANDOM STAT 05/17/2022 12:16 PM PAGE DESIGNER Neuro-endocrine carcinoma (CMS/HCC) (HCC) EGFR STAT 05/17/2022 11:34 AM PAGE DESIGNER Neuro-endocrine carcinoma (CMS/HCC) (HCC) DIFFERENTIAL AUTO STAT 05/17/2022 11: 34 AM PAGE DESIGNER Neuro-endocrine carcinoma (CMS/HCC) (HCC) THYROID FUNCTION CASCADE Routine 05/17/2022 11:34 AM PAGE DESIGNER Hypothyroidism due to medication CBC WITH AUTO DIFFERENTIAL STAT 05/17/2022 11:34 AM PAGE DESIGNER Neuro-endocrine carcinoma (CMS/HCC) (HCC) VITAMIN D 25 HYDROXY Routine 05/17/2022 11:34 AM PAGE DESIGNER 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) PHOSPHORUS Routine 05/17/2022 11:34 AM PAGE DESIGNER 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) MAGNESIUM STAT 05/17/2022 11:34 AM PAGE DESIGNER Neuro-endocrine carcinoma (CMS/HCC) (HCC) LIPID PANEL Routine 05/17/2022 11:34 AM PAGE DESIGNER 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) COMPREHENSIVE METABOLIC PANEL STAT 05/17/2022 11:34 AM PAGE DESIGNER Neuro-endocrine carcinoma (CMS/HCC) (HCC) documented in this encounter Results * Protein / creatinine ratio, urine, random (05/17/2022 12:16 PM PAGE DESIGNER) Pathologist [facility] Protein, ur, quant 10.6 mg/dL [facility] Comment: Interpretive Data No reference range established. Current interpretive data was last revised 2018. Creatinine Ur 140.9 mg/dL [facility] Comment: Interpretive Data No reference range established. Current interpretive data was last revised 2018. Protein/creatinin e ratio 75.2 0.0 - 180.0 mg/g CR [facility] Urine 05/17/2022 12:1 6 PM PAGE DESIGNER 05/17/2022 1:51 PM PAGE DESIGNER us Eren Cr MD LAB URINE ORDERABLES Final Re sult [facility] [place] [address] * (ABNORMAL) eGFR (05/17/2022 11:34 AM PAGE DESIGNER) Pathologist [facility] eGFR 53(L) 90 - 130 mL/min/1. 73 m2 [facility] [...] reviewed 2021. Blood 05/17/2022 11:3 4 AM PAGE DESIGNER 05/17/2022 11:36 AM PAGE DESIGNER us Eren Cr MD LAB BLOOD ORDERABLES Final Re sult [facility] [place] [address] * (ABNORMAL) Differential, auto (05/17/2022 11:34 AM PAGE DESIGNER) Neutrophil abs 2.3 1.7 - 6.5 K/cumm [facility] Comment:Testing performed by : [facility], [address] [place] [address] Imm gran abs 0.0 0.0 - 0.1 K/cumm [facility] Lymphocyte abs 0.7(L) 0.8 - 3.3 K/cumm [facility] Monocyte abs 0.5 0.2 - 0.8 K/cumm [facility] Eosinophil abs 0.1 0.0 - 0.5 K/cumm [facility] Basophil abs 0.0 0.0 - 0.1 K/cumm [facility] Neutrophil pct 63.1 % [facility] Comment: Interpretive Data Percent cell count reference ranges are not reported, since discordance with absolute values may lead to misinterpretation of CBC data. Current Interpretive Data was last revised on 2017. Imm gran pct 0.3 % [facility] Comment: Interpretive Data Percent cell count reference ranges are not reported, since discordance with absolute values may lead to misinterpretation of CBC data. Current Interpretive Data was last revised on 2017. Lymphocyte pct 20.1 % [facility] Comment: Interpretive Data Percent cell count reference ranges are not reported, since discordance with absolute values may lead to misinterpretation of CBC data. Current Interpretive Data was last revised on 2017. Monocyte pct 13.4 % [facility] Comment: Interpretive Data Percent cell count reference ranges are not reported, since discordance with absolute values may lead to misinterpretation of CBC data. Current Interpretive Data was last revised on 2017. Eosinophil pct 2.5 % [facility] Comment: Interpretive Data Percent cell count reference ranges are not reported, since discordance with absolute values may lead to misinterpretation of CBC data. Current Interpretive Data was last revised on 2017. Basophil pct 0.6 % [facility] Comment: Interpretive Data Percent cell count reference ranges are not reported, since discordance with absolute values may lead to misinterpretation of CBC data. Current Interpretive Data was last revised on 2017. Blood 05/17/2022 11:3 4 AM PAGE DESIGNER 05/17/2022 11:36 AM PAGE DESIGNER Eren Cr MD LAB BLOOD ORDERABLES Final Re sult Performing Organization Address City/[facility]/ZIP Co de Phone Number [facility] [place] [address] * TSH reflex to free T4 (05/17/2022 11:34 AM PAGE DESIGNER) TSH 3.02 0.30 - 4.20 mcIUnit/mL [facility] Blood 05/17/2022 11:3 4 AM PAGE DESIGNER 05/17/2022 12:37 PM PAGE DESIGNER Eren Cr MD LAB BLOOD ORDERABLES Final Re sult Performing Organization Address City/[facility]/ZIP Co de Phone Number [facility] [place] [address] * (ABNORMAL) CBC with auto differential (05/17/2022 11:34 AM PAGE DESIGNER) [facility] WBC 3.6(L) 3.8 - 9.9 K/cumm [facility] Comment:Testing performed by : [facility], [address] [place] [address] Hgb 11.5(L) 11.9 - 15.5 g/dL [facility] Comment:Testing performed by : [address] [address] Hct 34.6(L) 35.6 - 45.5 % [facility] Comment:Testing performed by : [address] [address] Plt 97(L) 150 - 400 K/cumm [facility] Comment:Testing performed by : [address] [address] MPV 11.0 9.1 - 12.3 fL [facility] RBC 3.44(L) 3.90 - 5.20 M/cumm [facility] MCV 100.6(H) 81.3 - 96.4 fL [facility] MCH 33.4(H) 27.1 - 33.3 pg [facility] MCHC 33.2 32.3 - 35.7 g/dL [facility] RDW CV 14.1 11.1 - 14.9 % [facility] RDW SD 51.1(H) 35.7 - 48.1 fL [facility] NRBC abs 0.00 0.00 - 0.01 K/cumm [facility] Blood 05/17/2022 11:3 4 AM PAGE DESIGNER 05/17/2022 11:36 AM PAGE DESIGNER us Eren Cr MD LAB BLOOD ORDERABLES Final Re sult [facility] [place] [address] * Comprehensive metabolic panel (05/17/2022 11:34 AM PAGE DESIGNER) [facility] Sodium 139 135 - 145 mmol/L [facility] Comment:Testing performed by : [facility], [address] [facility] [address] Potassium, pl 4.0 3.3 - 4.9 mmol/L [facility] Chloride 107 97 - 110 mmol/L [facility] CO2 26 22 - 32 mmol/L [facility] Anion gap 6 2 - 15 mmol/L [facility] BUN 13 8 - 25 mg/dL [facility] Creatinine 1.10 0.60 - 1.10 mg/dL [facility] Glucose 106 70 - 199 mg/dL [facility] [...] 2017. Calcium 9.9 8.5 - 10.3 mg/dL [facility] Bilirubin, total 0.5 0.1 - 1.2 mg/dL [facility] Protein, pl 6.6 6.5 - 8.5 g/dL [facility] Albumin 4.2 3.5 - 5.0 g/dL [facility] Alk phos 60 40 - 130 Units/L [facility] ALT 27 7 - 45 Units/L [facility] AST 35 10 - 45 Units/L [facility] Blood 05/17/2022 11:3 4 AM PAGE DESIGNER 05/17/2022 11:36 AM PAGE DESIGNER us Eren Cr MD LAB BLOOD ORDERABLES Final Re sult [facility] [place] [address] * Magnesium (05/17/2022 11:34 AM PAGE DESIGNER) Pathologist [facility] Magnesium 1.6 1.4 - 2.5 mg/dL [facility] Comment:Testing performed by : [facility], [address] [place] [address] Blood 05/17/2022 11:3 4 AM PAGE DESIGNER 05/17/2022 11:36 AM PAGE DESIGNER us Eren Cr MD LAB BLOOD ORDERABLES Final Re sult [facility] Department [place] [address] * (ABNORMAL) Lipid panel (05/17/2022 11:34 AM PAGE DESIGNER) Pathologist [facility] Cholesterol 183 30 - 199 mg/dL [facility] Comment: Reviewed Interpretive Data Ages < or [...] on 2018. Triglycerides 242(H) <=149 mg/dL [facility] [...] revised on 2018. HDL 59 >=40 mg/dL [facility] Comment: [...] on 2018. LDL, calculated 76 <=129 mg/dL [facility] Comment: [...] revised on 2018. Non-HDL Cholesterol 124 mg/dL [facility] Comment: [...] last revised on 2018. Chol/HDL ratio 3 [facility] Blood 05/17/2022 11:3 4 AM PAGE DESIGNER 05/17/2022 12:37 PM PAGE DESIGNER us Eren Cr MD LAB BLOOD ORDERABLES Final Re sult Performing Organization Address [facility] Co de Phone Number [facility] Department of Laboratories [place], [place] [id number] * (ABNORMAL) Phosphorus (05/17/2022 11:34 AM PAGE DESIGNER) [facility] Phosphorus, pl 2.0(L) 2.3 - 4.5 mg/dL [facility] Comment:Testing performed by : [address] [address] Blood 05/17/2022 11:3 4 AM PAGE DESIGNER 05/17/2022 11:36 AM PAGE DESIGNER Eren Cr MD LAB BLOOD ORDERABLES Final Re sult Performing Organization Address City/[facility] Co de Phone Number [facility] [place] [address] * (ABNORMAL) Vitamin D 25 hydroxy (05/17/2022 11:34 AM PAGE DESIGNER) [facility] Vitamin D 25-OH 24(L) 30 - 80 ng/mL [facility] Blood 05/17/2022 11:3 4 AM PAGE DESIGNER 05/17/2022 12:37 PM PAGE DESIGNER us Eren Cr MD LAB BLOOD ORDERABLES Final Re sult [facility] [place] [address] documented in this encounter Visit Diagnoses Diagnosis Neuroendocrine carcinoma (HCC) Other malignant neoplasm of unspecified site 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
--- OUTSIDE RECORDS SUMMARY | 2024-06-26 02:03 | XMS_ITS | Encounter Summary ---
Author Organization [facility] Address [address] [place] [address] Phone Care Team Providers Care Rougher Machine Operator Name Role Phone Julio César Briseno MD Primary Care Provider [phone] Eren Cr MD Unavailable [phone] Yohana Bowen MD Unavailable Reason for Referral * Diagnostic Imaging (Routine) - Closed Specialty Diagnoses / Procedures Referred By Evelyne bowman Referred To Contact Radiology Diagnoses Primary malignant neuroendocrine tumor of ileum (HCC) Procedures IR Contrast Injection Evaluation Central Venous Access Device Consult to Interventional Radiology Eren Cr MD [address] [place] [address] Phone: tel: fax: [facility] [address] [place] [address] Referral ID Status Reason Start Date Expiration Date Visits Re quested Visits Authorized [id number] Closed 06/07/2022 07/07/2023 1 1 ULTING TECHNICAL DIRECTOR Encounter Details Date Type Department Care Team (Late st Contact Info) Description 06/07/2022 Orders Only [facility] Oncology [address] [place] [address] Eren Cr MD [address] [facility] [address] [place] [address] Primary malignant neuroendocrine tumor of ileum (CMS/HCC) [...] file Legal Sex Female 2:41 PM CONSULTING TECHNICAL DIRECTOR Gender Identity Not on file Sexual Orientation Straight 02/19/2021 9: 29 AM CDT Occupation Industry Job Start Date Job End Date retired Not on file Not on file Not on file documented as of this encounter Plan of Treatment Not on file documented as of this encounter Results * IR Contrast Injection Evaluation Central Venous Access Device (06/12/2022 12:34 PM CONSULTING TECHNICAL DIRECTOR) Anatomical Region Laterality Modality Body N/A Radio Fluoroscop y 06/12/2022 2:39 PM CONSULTING TECHNICAL DIRECTOR Impressions 06/12/2022 4:56 PM CONSULTING TECHNICAL DIRECTOR Right chest port in appropriate position without [...] Callie Mills M.D. Narrative 06/12/2022 4:56 PM CONSULTING TECHNICAL DIRECTOR EXAMINATION: ??CENTRAL VENOUS PORT CHECK HISTORY/INDICATION: ??71-year-old [...] was obtained. Prior to beginning the procedure, [place] Protocol was performed to confirm the [...] was obtained. Prior to beginning the procedure, [place] Protocol was performed to confirm the [...] (HCC) documented in this encounter Care Teams Rougher Machine Operator Relationship Specialty Start Date End Date Julio César Briseno MD PCP - General 10/01/16 Eren Cr MD Referring Physician Medical Oncology 11/25/18 Yohana Bowen MD Radiation Oncologist Radiation Oncology 11/25/18 documented as of this encounter
--- OUTSIDE RECORDS SUMMARY | 2024-06-26 02:03 | XMS_ITS | Encounter Summary ---
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) Bone metastasis Procedures CT chest abdomen pelvis with contrast Eren Cr MD [address] [place] [address] Phone: tel: fax: [address] [address] Referral ID Status Reason Start Date Expiration Date Visits Re quested Visits Authorized [id number] Closed 06/13/2022 07/13/2023 1 1 SEALING FUEL TANK BUILDER Reason for Visit * MRI/CAT/PET Scan (Routine) - Closed Specialty Diagnoses / Procedures Referred By Contac t Referred To Contact Radiology Diagnoses 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) Bone metastasis Procedures CT chest abdomen pelvis with contrast Eren Cr MD [address] [facility] [address] [place] [address] Phone: tel: fax: [facility] [address] [facility] [place] [address] Referral ID Status Reason Start Date Expiration Date Visits Re quested Visits Authorized [id number] Closed 06/13/2022 07/13/2023 1 1 Encounter Details Date Type Department Care Team (Latest Contact Info) Description 06/28/2022 9:58 AM SELF SEALING FUEL TANK BUILDER - 06/28/2022 10:44 AM SELF SEALING FUEL TANK BUILDER Hospital Encounter [facility] Radiology [facility] [address] [place] [address] Primary malignant neuroendocrine tumor of ileum (CMS/HCC) [...] on file Legal Sex Female 2:41 PM SELF SEALING FUEL TANK BUILDER Gender Identity Not on file Sexual [...] capsuleIndicatio ns:supplement Take 1 tablet by mouth ethnoarchaeology professor before breakfast 07/04/2016 4 cholecalciferol (VITAMIN D-3) 2,000 unit capsule Take 1 capsule (2,000 Units total) by mouth daily 30 capsule 2 04/25/2019 3 clotrimazole-bet amethasone (LOTRISONE) cream Apply 1 Application topically daily as needed (rash) 4 coenzyme I67-icmpcuw E 100-5 mg-unit capsuleIndicatio ns:supplement Take 1 tablet by mouth ethnoarchaeology professor before breakfast 4 diphenoxylate-at ropine (LOMOTIL) 2.5-0.025 [...] and 1 hour after each dose).?? Avoid [place]'s Wort, grapefruit products and [place] oranges while on treatment. placed on hold 09/26/22 for covid 01/29/2022 4 levothyroxine (SYNTHROID) 88 mcg tabletIndication s:Hypothyroidism due to medication TAKE 1 TABLET (88 MCG TOTAL) BY MOUTH DECAY CONTROL OPERATOR BEFORE BREAKFAST 30 tablet 1 06/11/2022 [...] Read Routine (OP Routine) 06/28/2022 10:38 AM SELF SEALING FUEL TANK BUILDER 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) Malignant neoplasm metastatic to liver (CMS/HCC) (HCC) Bone metastasis (CMS/HCC) (HCC) documented in this encounter Results * CT chest abdomen pelvis with contrast (06/28/2022 10:38 AM SELF SEALING FUEL TANK BUILDER) Anatomical Region Laterality Modality Body N/A Computed Tomogra phy 06/28/2022 11:3 6 AM SELF SEALING FUEL TANK BUILDER Impressions 06/28/2022 11:36 AM SELF SEALING FUEL TANK BUILDER 1. ??No metastatic disease in the chest. 2. ??Stable hepatic and peritoneal metastases. ??No new abdominal metastases. Electronically signed by: Jasbir Delgadillo M.D. Narrative 06/28/2022 11:36 AM SELF SEALING FUEL TANK BUILDER EXAMINATION: ??CT chest abdomen pelvis with contrast [...] 1 dose Contrast Given 06/28/2022 10:40 AM SELF SEALING FUEL TANK BUILDER 94 mL documented in this encounter Orders Medications Ordered That Brett ht Not Have Been Administered Count Last Ordered Date First Ordered Date ioversoL (OPTIRAY 350) syringe 100 mL 1 documented in this encounter Care Teams Hoisting Pile Driving Engineer Relationship Specialty Start Date End Date Julio César Briseno MD PCP - General 10/01/16 Eren Cr MD Referring Physician Medical Oncology 11/25/18 Yohana Bowen MD Radiation Oncologist Radiation Oncology 11/25/18 documented as of this encounter
--- OUTSIDE RECORDS SUMMARY | 2024-06-26 02:03 | XMS_ITS | Encounter Summary ---
Author Organization [facility] Address [address] [place] [address] Phone Care Team Providers Care Nurse Obgyn Name Role Phone Julio César Briseno MD Primary Care Provider [phone] Eren Cr MD Unavailable [phone] Yohana Bowen MD Unavailable Reason for Visit * Episode Based Medications (Routine) - Closed Specialty Diagnoses / Procedures Referred By Evelyne bowman Referred To Contact Diagnoses Neuro-endocrine carcinoma (HCC) Procedures study [id number] phase III cabozantinib Eren Cr MD [address] [facility] [address] [place] [address] Phone: tel: fax: [employer] [facility] [employer] [facility] at [facility] and [facility] [address] [facility] Advanced Medicine 7th [place] [address] Phone: tel: Referral ID Status Reason Start Date Expiration Date Visits Re quested Visits Authorized [id number] Closed 06/21/2021 06/26/2024 1 99 Encounter Details Date Type Department Care Team (Late st Contact Info) Description 04/19/2022 10:30 AM CDT Office Visit [facility] Oncology [address] [place] [address] Eren Cr MD [address] [facility] [address] [place] [address] Malignant 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 She was admitted to [facility] hospital 04/09-04/10 for proctitis. She was discharged [...] exposed skin. . Minimal erythema. NEURO: A&Ox4, assembling fabricator grossly intact by conversation, moving all extremities [...] Neuroendocrine tumor [facility]: No change in treatment plan Cosigned by Eren Cr Jr., MD at 04/19/2022 4:24 PM CDT documented in this encounter Plan of Treatment Not on file documented as of this encounter Results * TSH reflex to free T4 (05/17/2022 11:34 AM HEADER UP) TSH 3.02 0.30 - 4.20 mcIUnit/mL [facility] Blood 05/17/2022 11:3 4 AM HEADER UP 05/17/2022 12:37 PM HEADER UP us Eren Cr MD LAB BLOOD ORDERABLES Final Re sult [facility] One [facility] [place] [address] * (ABNORMAL) Vitamin D 25 hydroxy (05/17/2022 11:34 AM HEADER UP) Vitamin D 25-OH 24(L) 30 - 80 ng/mL [facility] Blood 05/17/2022 11:3 4 AM HEADER UP 05/17/2022 12:37 PM HEADER UP Eren Cr MD LAB BLOOD ORDERABLES Final Re sult Performing Organization Address City/[facility] Co de Phone Number [facility] Department [place] [address] * (ABNORMAL) Phosphorus (05/17/2022 11:34 AM HEADER UP) Phosphorus, pl 2.0(L) 2.3 - 4.5 mg/dL [facility] Comment:Testing performed by : [facility], [address] [place] [address] Blood 05/17/2022 11:3 4 AM HEADER UP 05/17/2022 11:36 AM HEADER UP Eren Cr MD LAB BLOOD ORDERABLES Final Re sult Performing Organization Address [facility] Co de Phone Number [facility] Department [place] [address] * (ABNORMAL) Lipid panel (05/17/2022 11:34 AM HEADER UP) Cholesterol 183 30 - 199 mg/dL [facility] Comment: Reviewed Interpretive Data Ages < [...] on 2018. Triglycerides 242(H) <=149 mg/dL [facility] Comment: Interpretive Data Ages < or [...] revised on 2018. HDL 59 >=40 mg/dL [facility] Comment: Interpretive Data Ages < or [...] on 2018. LDL, calculated 76 <=129 mg/dL [facility] Comment: Interpretive Data Ages < or = [...] revised on 2018. Non-HDL Cholesterol 124 mg/dL [facility] Comment: Interpretive Data Ages < or = [...] revised on 2018. Chol/HDL ratio 3 [facility] Blood 05/17/2022 11:3 4 AM HEADER UP 05/17/2022 12:37 PM HEADER UP us Eren Cr MD LAB BLOOD ORDERABLES Final Re sult [facility] One [facility] [place] [address] * Urinalysis reflex to microscopic and culture Urine, clean voided (04/19/2022 2:48 PM CDT) Color, ur Yellow Yellow [facility] Clarity, ur Clear Clear [facility] Specific gravity, ur 1.018 1.003 - 1.030 [facility] pH, urine 5.5 [facility] Protein, ur ql Negative Negative [facility] Glucose, ur ql Negative Negative [facility] Ketones, ur Negative Negative [facility] Bilirubin, ur Negative Negative [facility] Blood, ur Negative Negative [facility] Urobilinogen, ur <2.0 <2.0 mg/dL [facility] Nitrite, ur Negative Negative [facility] Leukocyte esterase, ur Negative Negative [facility] UA reflex comment Reflex conditions for microscopic UA and culture not met. [facility] Urine, clean voided 04/19/2022 2:48 PM CDT 04/19/2022 7:09 PM CDT Narrative [facility] - 04/19/2022 7:17 PM CDT ?? Urine pH is affected by diet, medications, systemic acid-base disturbances, and renal tubular function. ??pH may affect urinary stone formation. ??For example, urine pH below 6.0 may help reduce the tendency for calcium phosphate stones and pH greater than 6.0 may reduce the tendency for uric acid stone formation. Source: [employer]. Last revised 07-18-2017 us Eren Cr MD LAB MICROBIOLOGY - GENERAL OR DERABLES Final Result [facility] One [facility] [place] [address] documented in this encounter Visit Diagnoses Diagnosis [...] 1 TABLET (75 MCG TOTAL) BY MOUTH ETL DATABASE DEVELOPER BEFORE BREAKFAST 02/22/2022 04/19/2022 documented as of this encounter Orders Appointment Requests Count Last Ordered Date Fi rst Ordered Date ONCBCN INJECTION APPOINTMENT REQUEST 1 05/08 ONCBCN CLINIC APPOINTMENT REQUEST 1 022 documented in this encounter Care Teams Nurse Obgyn Relationship Specialty Start Date End Date Julio César Briseno MD PCP - General 10/01/16 Eren Cr MD Referring Physician Medical Oncology 11/25/18 Yohana Bowen MD Radiation Oncologist Radiation Oncology 11/25/18 documented as of this encounter
--- OUTSIDE RECORDS SUMMARY | 2024-06-26 02:03 | XMS_ITS | Encounter Summary ---
Author Organization [facility] Address [address] [place] [address] Phone Care Team Providers Care Tearoom Hostess Name Role Phone Julio César Briseno MD Primary Care Provider [phone] Eren Cr MD Unavailable [phone] Yohana Bowen MD Unavailable Reason for Visit * Episode Based Medications (Routine) - Closed Specialty Diagnoses / Procedures Referred By Evelyne bowman Referred To Contact Diagnoses Neuro-endocrine carcinoma (HCC) Procedures study [id number] phase III cabozantinib Eren Cr MD [address] [facility] [address] [place] [address] Phone: tel: fax: [facility] at [facility] and [facility] [address] [facility] Advanced Medicine 7th [place] [address] Phone: tel: Referral ID Status Reason Start Date Expiration Date Visits Re quested Visits Authorized [id number] Closed 06/21/2021 06/26/2024 1 99 Encounter Details Date Type Department Care Team (Latest Contact Info) Description 04/19/2022 1:30 PM CDT Research Med Pick-Up/CTRU Medical Supervisor [facility] Oncology [address] [place] [address], [place] [address] Neuro-endocrine carcinoma (CMS/HCC) (HCC) (Primary Dx) Social [...] file Legal 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 Gender Identity Not on file Sexual [...] Date First Ordered Date [id number] cabozantinib/pl acebo (2018-02-122/[id number]) tablet 20 mg 1 04/19/2022 Nursing Count Last Ordered Date First Orde red Date ONCBCN PROVIDER COMMUNICATION 10 1 04/19/20 ONCBCN STUDY COMMUNICATION 2 1 04/19/2022 ONCBCN TREATMENT PARAMETERS 1 1 04/19/2022 Appointment Requests Count Last Ordered Date Fi rst Ordered Date ONCBCN TAKE HOME STUDY DRUG APPT 1 04/19/20 22 documented in this encounter Care Teams Tearoom Hostess Relationship Specialty Start Date End Date Julio César Briseno MD PCP - General 10/01/16 Eren Cr MD Referring Physician Medical Oncology 11/25/18 Yohana Bowen MD Radiation Oncologist Radiation Oncology 11/25/18 documented as of this encounter
--- OUTSIDE RECORDS SUMMARY | 2024-06-26 02:03 | XMS_ITS | Encounter Summary ---
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 and [facility] Advanced Medicine 7th [place] [address] Phone: tel: Referral ID Status Reason Start Date Expiration Date V isits Requested Visits Authorized [id number] Authorized 03/02/2019 10/06/2024 1 60 Encounter Details Date Type Department Care Team (Late st Contact Info) Description 05/28/2022 3:30 PM LADDERMAN Infusion [facility] Oncology [address] [facility] 7th [place] [address] Malignant neoplasm metastatic to liver (CMS/HCC) (HCC) [...] on file Legal Sex Female 2:41 PM LADDERMAN Gender Identity Not on file Sexual Orientation Straight 02/19/2021 9: 29 AM CDT Occupation Industry Job Start Date Job End Date retired Not on file Not on file Not on file documented as of this encounter Nursing Notes * Soniya Cardenas RN - 05/28/2022 3:30 PM CST Oncology Nursing Note [facility] ON[facility] La Chung is [...] Ambulatory Accompanied by: Family Discharged To: Home ERMAN documented in this encounter Plan of Treatment [...] CannulaIndications:Occluded Arteriovenous Cannula Given 05/28/2022 4:30 PM LADDERMAN 2 mg sodium chloride 0.9% bolus 1,000 mL 1,000 mL, intravenous, at 500 mL/hr, Administer over 2 Hours, Once, On Sat05/28/22 at 1615, For 1 doseIndications:Dehydration,N euroendocrine carcinoma (HCC) New Bag 05/28/2022 4:05 PM LADDERMAN 1,000 mL 500 mL/hr documented in this encounter Orders Medications Ordered That Brett ht Not Have Been Administered Count Last Ordered Date First Ordered Date alteplase (CATHFLO ACTIVASE) injection 1 mg 1 05/28/2022 Appointment Requests Count Last Ordered Date Fi rst Ordered Date ONCBCN INFUSION APPT REQUEST 1 05/28/2022 documented in this encounter Care Teams Trash Hauler Relationship Specialty Start Date End Date Julio César Briseno MD PCP - General 10/01/16 Eren Cr MD Referring Physician Medical Oncology 11/25/18 Yohana Bowen MD Radiation Oncologist Radiation Oncology 11/25/18 documented as of this encounter
--- OUTSIDE RECORDS SUMMARY | 2024-06-26 02:03 | XMS_ITS | Encounter Summary ---
Author Organization [facility] Address [address] [place] [address] Care Team Providers Care Lead Ramp Service Man Name Role Phone Julio César Briseno MD Primary Care Provider [phone] Eren Cr MD Unavailable [phone] Yohana Bowen MD Unavailable Encounter Details Date Type Department Care Team (Latest Contact Info) Description 06/14/2022 9:18 AM BUTTER LIQUEFIER - 06/14/2022 11:59 PM BUTTER LIQUEFIER Hospital Encounter [address] [address] Neuroendocrine carcinoma (CMS/HCC) (HCC); Malignant neoplasm metastatic [...] file Legal Sex Female 2:41 PM BUTTER LIQUEFIER Gender Identity Not on file Sexual Orientation [...] capsuleIndicatio ns:supplement Take 1 tablet by mouth architecture professor before breakfast 07/04/2016 4 cholecalciferol (VITAMIN D-3) 2,000 unit capsule Take 1 capsule (2,000 Units total) by mouth daily 30 capsule 2 04/25/2019 3 clotrimazole-bet amethasone (LOTRISONE) cream Apply 1 Application topically daily as needed (rash) 4 coenzyme [id number] 100-5 mg-unit capsuleIndicatio ns:supplement Take 1 tablet by mouth architecture professor before breakfast 4 diphenoxylate-at ropine (LOMOTIL) [...] as needed for rhinitis or allergies 4 [facility] cabozantinib/maris cebo (2018-02-122/A02 1602) 20 mg tabletIndication s:cancer study Take 1 tablet (20 mg total) by mouth nightly Take on an empty stomach (no food for 2 hours before and 1 hour after each dose).?? Avoid Mccoll's Wort, grapefruit products and [place] oranges while on treatment. placed on hold 09/26/22 for covid 01/29/2022 4 levothyroxine (SYNTHROID) 88 mcg tabletIndication s:Hypothyroidism due to medication TAKE 1 TABLET (88 MCG TOTAL) BY MOUTH BEDSPREAD INSPECTOR BEFORE BREAKFAST 30 tablet 1 06/11/2022 2 [...] Diagnosis Comments EGFR STAT 06/14/2022 9:33 AM BUTTER LIQUEFIER 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) DIFFERENTIAL AUTO Routine 06/14/2022 9:3 3 AM BUTTER LIQUEFIER 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) CHROMOGRANIN A Routine 06/14/2022 9:33 AM BUTTER LIQUEFIER 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) CBC WITH AUTO DIFFERENTIAL Routine 06/14/2022 9:33 AM BUTTER LIQUEFIER 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) VITAMIN D 25 HYDROXY Routine 06/14/2022 9:33 AM BUTTER LIQUEFIER 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) PHOSPHORUS Routine 06/14/2022 9:33 AM BUTTER LIQUEFIER 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) MAGNESIUM STAT 06/14/2022 9:33 AM BUTTER LIQUEFIER Neuro-endocrine carcinoma (CMS/HCC) (HCC) LIPID PANEL Routine 06/14/2022 9:33 AM BUTTER LIQUEFIER 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) COMPREHENSIVE METABOLIC PANEL STAT 06/14/2022 9:33 AM BUTTER LIQUEFIER 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) documented in this encounter Results * (ABNORMAL) eGFR (06/14/2022 9:33 AM BUTTER LIQUEFIER) eGFR 50(L) 90 - 130 mL/min/1. 73 [...] last reviewed 2021. Blood 06/14/2022 9:33 AM BUTTER LIQUEFIER 06/14/2022 9:35 AM BUTTER LIQUEFIER us Eren Cr MD LAB BLOOD ORDERABLES Final Re sult [facility] One [facility] [place] [address] * (ABNORMAL) Differential, auto (06/14/2022 9:33 AM BUTTER LIQUEFIER) Neutrophil abs 2.3 1.7 - 6.5 K/cumm [facility] Comment:Testing performed by : [facility], [address] [facility] [address] Imm gran abs 0.0 0.0 - 0.1 K/cumm [facility] Lymphocyte abs 0.6(L) 0.8 - 3.3 K/cumm [facility] Monocyte abs 0.3 0.2 - 0.8 K/cumm [facility] Eosinophil abs 0.1 0.0 - 0.5 K/cumm [facility] Basophil abs 0.0 0.0 - 0.1 K/cumm [facility] Neutrophil pct 69.1 % [facility] Comment: Interpretive Data Percent cell count reference ranges are not reported, since discordance with absolute values may lead to misinterpretation of CBC data. Current Interpretive Data was last revised on 2017. Imm gran pct 0.3 % [facility] Comment: Interpretive Data Percent cell count reference ranges are not reported, since discordance with absolute values may lead to misinterpretation of CBC data. Current Interpretive Data was last revised on 2017. Lymphocyte pct 18.2 % [facility] Comment: Interpretive Data Percent cell count reference ranges are not reported, since discordance with absolute values may lead to misinterpretation of CBC data. Current Interpretive Data was last revised on 2017. Monocyte pct 8.8 % [facility] Comment: Interpretive Data Percent cell count reference ranges are not reported, since discordance with absolute values may lead to misinterpretation of CBC data. Current Interpretive Data was last revised on 2017. Eosinophil pct 3.3 % [facility] Comment: Interpretive Data Percent cell count reference ranges are not reported, since discordance with absolute values may lead to misinterpretation of CBC data. Current Interpretive Data was last revised on 2017. Basophil pct 0.3 % [facility] Comment: Interpretive Data Percent cell count reference ranges are not reported, since discordance with absolute values may lead to misinterpretation of CBC data. Current Interpretive Data was last revised on 2017. Blood 06/14/2022 9:33 AM BUTTER LIQUEFIER 06/14/2022 9:35 AM BUTTER LIQUEFIER Eren Cr MD LAB BLOOD ORDERABLES Final Re sult Performing Organization Address [facility] Co de Phone Number [facility] [place] [address] * Magnesium (06/14/2022 9:33 AM BUTTER LIQUEFIER) Magnesium 1.5 1.4 - 2.5 mg/dL [facility] Comment:Testing performed by : [address] [address] Blood 06/14/2022 9:33 AM BUTTER LIQUEFIER 06/14/2022 9:35 AM BUTTER LIQUEFIER Eren Cr MD LAB BLOOD ORDERABLES Final Re sult Performing Organization Address [facility] [place] [address] * (ABNORMAL) Lipid panel (06/14/2022 9:33 AM BUTTER LIQUEFIER) Cholesterol 155 30 - 199 mg/dL [facility] [...] revised on 2018. Triglycerides 166(H) <=149 mg/dL [facility] Comment: Interpretive Data [...] revised on 2018. HDL 56 >=40 mg/dL [facility] Comment: Interpretive Data [...] on 2018. LDL, calculated 66 <=129 mg/dL [facility] Comment: Interpretive [...] 3 JASON BLACK Blood 06/14/2022 9:33 AM BUTTER LIQUEFIER 06/14/2022 10:32 AM BUTTER LIQUEFIER us Eren Cr MD LAB BLOOD ORDERABLES Final Re sult [facility] One [facility] Department [place] [address] * Phosphorus (06/14/2022 9:33 AM BUTTER LIQUEFIER) [facility] Phosphorus, pl 2.3 2.3 - 4.5 mg/dL [facility] Comment:Testing performed by : [facility], [address] [place] [address] Blood 06/14/2022 9:33 AM BUTTER LIQUEFIER 06/14/2022 9:35 AM BUTTER LIQUEFIER Eren Cr MD LAB BLOOD ORDERABLES Final Re sult [facility] [place] [address] * (ABNORMAL) Vitamin D 25 hydroxy (06/14/2022 9:33 AM BUTTER LIQUEFIER) Pathologist [facility] Vitamin D 25-OH 20(L) 30 - 80 ng/mL [facility] Blood 06/14/2022 9:33 AM BUTTER LIQUEFIER 06/14/2022 10:32 AM BUTTER LIQUEFIER Eren Cr MD LAB BLOOD ORDERABLES Final Re sult Performing Organization Address [facility] Co de Phone Number [facility] Department [place] [address] * (ABNORMAL) CBC with auto differential (06/14/2022 9:33 AM BUTTER LIQUEFIER) [facility] WBC 3.3(L) 3.8 - 9.9 K/cumm [facility] Comment:Testing performed by : [address] [address] Hgb 11.4(L) 11.9 - 15.5 g/dL [facility] Comment:Testing performed by : [address] [address] Hct 34.3(L) 35.6 - 45.5 % [facility] Comment:Testing performed by : [address] [address] Plt 107(L) 150 - 400 K/cumm [facility] Comment:Testing performed by : [address] [address] MPV 10.7 9.1 - 12.3 fL [facility] RBC 3.49(L) 3.90 - 5.20 M/cumm [facility] MCV 98.3(H) 81.3 - 96.4 fL [facility] MCH 32.7 27.1 - 33.3 pg [facility] MCHC 33.2 32.3 - 35.7 g/dL [facility] RDW CV 13.7 11.1 - 14.9 % [facility] RDW SD 49.1(H) 35.7 - 48.1 fL [facility] NRBC abs 0.00 0.00 - 0.01 K/cumm [facility] Blood 06/14/2022 9:33 AM BUTTER LIQUEFIER 06/14/2022 9:35 AM BUTTER LIQUEFIER us Eren Cr MD LAB BLOOD ORDERABLES Final Re sult [facility] One [facility] Department [place] [address] * (ABNORMAL) Comprehensive metabolic panel (06/14/2022 9:33 AM BUTTER LIQUEFIER) [facility] Sodium 139 135 - 145 mmol/L [facility] Comment:Testing performed by : [facility], [address] [place] [address] Potassium, pl 3.6 3.3 - 4.9 mmol/L [facility] Chloride 109 97 - 110 mmol/L [facility] CO2 25 22 - 32 mmol/L [facility] Anion gap 5 2 - 15 mmol/L [facility] BUN 16 8 - 25 mg/dL [facility] Creatinine 1.15(H) 0.60 - 1.10 mg/dL [facility] Glucose 112 70 - 199 mg/dL [facility] [...] Calcium 10.3 8.5 - 10.3 mg/dL [facility] Bilirubin, total 0.4 0.1 - 1.2 mg/dL [facility] Protein, pl 6.1(L) 6.5 - 8.5 g/dL [facility] Albumin 4.0 3.5 - 5.0 g/dL [facility] Alk phos 72 40 - 130 Units/L [facility] ALT 22 7 - 45 Units/L [facility] AST 32 10 - 45 Units/L [facility] Blood 06/14/2022 9:33 AM BUTTER LIQUEFIER 06/14/2022 9:35 AM BUTTER LIQUEFIER us Eren Cr MD LAB BLOOD ORDERABLES Final Re sult [facility] One [facility] Department [place] [address] * (ABNORMAL) Chromogranin A (06/14/2022 9:33 AM BUTTER LIQUEFIER) Chromogranin A 1093(H) <93 ng/mL [facility] Comment: Impaired [...] a homogeneous time-resolved immunofluorescent assay manufactured by [employer] and performed on the BRAHMS Kryptor Compact Plus. ? Values obtained with different assay methods or kits may be different and cannot be used interchangeably. ? Test results cannot be interpreted as absolute evidence for the presence or absence of malignant disease. Test Performed by: [facility] [address] [place] [address] Paint Maker: Immanuel Novak M.D. Ph.D.; CLIA# [id number] Blood 06/14/2022 9:33 AM BUTTER LIQUEFIER 06/14/2022 10:32 AM BUTTER LIQUEFIER us Eren Cr MD LAB BLOOD ORDERABLES Final Re sult [facility] One [facility] Department [place] [address] documented in this encounter Visit Diagnoses Diagnosis Neuroendocrine carcinoma (HCC) Other malignant neoplasm of unspecified site Malignant neoplasm metastatic to liver (HCC) Neuro-endocrine carcinoma (HCC) Other malignant neoplasm of unspecified site documented in this encounter Care Teams Lead Ramp Service Man Relationship Specialty Start Date End Date Julio César Briseno MD PCP - General 10/01/16 Eren Cr MD Referring Physician Medical Oncology 11/25/18 Yohana Bowen MD Radiation Oncologist Radiation Oncology 11/25/18 documented as of this encounter
--- OUTSIDE RECORDS SUMMARY | 2024-06-26 02:03 | XMS_ITS | Encounter Summary ---
Author Organization [facility] Address [address] [place] [address] Phone Care Team Providers Care Product Mgmt Dev Manager Name Role Phone Julio César Briseno MD Primary Care Provider [phone] Eren Cr MD Unavailable [phone] Yohana Bowen MD Unavailable Reason for Visit * Episode Based Medications (Routine) - Authorized Specialty Diagnoses / Procedures Referred By Evelyne t Referred To Contact Oncology Diagnoses Neuroendocrine carcinoma (HCC) Malignant neoplasm metastatic to liver (HCC) Procedures SC OCTREOTIDE INJECTION, DEPOT Octreotide 28 Day Cycles - Carcinoid Eren Cr MD [address] [facility] [address] [place] [address] Phone: tel: fax: [facility] Cancer [address] [address] Phone: tel: fax: Referral ID Status Reason Start Date Expiration Date V isits Requested Visits Authorized [id number] Authorized 11/28/2017 02/05/2025 1 150 Encounter Details Date Type Department Care Team (Late st Contact Info) Description 07/12/2022 10:45 AM PROGRAMS DIRECTOR Office Visit [facility] Oncology [address] [place] [address] Eren Cr MD [address] [place] [address] Bone metastasis (CMS/HCC) (HCC) (Primary Dx); Neuro-endocrine [...] on file Legal Sex Female 2:41 PM PROGRAMS DIRECTOR Gender Identity Not on file Sexual Orientation Straight 02/19/2021 9: 29 AM CDT Occupation Industry Job Start Date Job End Date retired Not on file Not on file Not on file documented as of this encounter Last Filed Vital Signs Vital Sign Reading Time Taken Comments Blood Pressure 152/76 07/12/2022 11:19 AM PROGRAMS DIRECTOR Pulse 75 07/12/2022 11:19 AM PROGRAMS DIRECTOR Temperature 36.7 ??C (98.1 ??F) 07/12/2022 1 1:19 AM PROGRAMS DIRECTOR Respiratory Rate 16 07/12/2022 11:1 9 AM PROGRAMS DIRECTOR Oxygen Saturation 96% 07/12/2022 11: 19 AM PROGRAMS DIRECTOR Inhaled Oxygen Concentration - - Weight 77.5 kg (170 lb 14.4 oz) 023 11:19 AM PROGRAMS DIRECTOR shoes off Height - - Body Mass [...] rashes over exposed skin. . 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
--- OUTSIDE RECORDS SUMMARY | 2024-06-26 02:03 | XMS_ITS | Encounter Summary ---
Author Organization [facility] Address [address] [place] [address] Phone Care Team Providers Care Supervisor Seaming Name Role Phone Julio César Briseno MD Primary Care Provider Eren Cr MD Unavailable [phone] Yohana Bowen MD Unavailable Encounter Details Date Type Department Care Team (Late st Contact Info) Description 06/28/2022 Telephone [facility] Oncology [address] [place] [address] Eren Cr MD [address] [place], [place] [id number] Social History Tobacco Use Types Packs/Day Years [...] on file Legal Sex Female 2:41 PM PLANT ACCOUNTANT Gender Identity Not on file Sexual Orientation Straight 02/19/2021 9: 29 AM CDT Occupation Industry Job Start Date Job End Date retired Not on file Not on file Not on file documented as of this encounter Miscellaneous Notes * Telephone Encounter - Eren Cr Jr., MD - 06/28/2022 4:36 PM PLANT ACCOUNTANT Called and left VM about stable scans. T ACCOUNTANT documented in this encounter Plan of Treatment Not on file documented as of this encounter Visit Diagnoses Not on filedocumented in this encounter Care Teams Supervisor Seaming Relationship Specialty Start Date End Date Julio César Briseno MD PCP - General 10/01/16 Eren Cr MD Referring Physician Medical Oncology 11/25/18 Yohana Bowen MD Radiation Oncologist Radiation Oncology 11/25/18 documented as of this encounter
--- OUTSIDE RECORDS SUMMARY | 2024-06-26 02:03 | XMS_ITS | Encounter Summary ---
Author Organization [facility] Address [address] [place] [address] Care Team Providers Care Field Marketing Team Leader Name Role Phone Julio César Briseno MD Primary Care Provider [phone] Eren Cr MD Unavailable [phone] Yohana Bowen MD Unavailable Encounter Details Date Type Department Care Team (Latest Contact Info) Description 04/19/2022 7:22 AM CDT - 04/19/2022 11:59 PM CDT Hospital Encounter [address] [address] Neuroendocrine carcinoma (CMS/HCC) (HCC); Malignant neoplasm metastatic [...] file Legal Sex Female 2:41 PM LIBRARY MEDIA SPECIALIST Gender Identity Not on file Sexual [...] capsuleIndicatio ns:supplement Take 1 tablet by mouth labels molder before breakfast 07/04/2016 4 cholecalciferol (VITAMIN D-3) 2,000 unit capsule Take 1 capsule (2,000 Units total) by mouth daily 30 capsule 2 04/25/2019 3 clotrimazole-bet amethasone (LOTRISONE) cream Apply 1 Application topically daily as needed (rash) 4 coenzyme [id number] 100-5 mg-unit capsuleIndicatio ns:supplement Take 1 tablet by mouth labels molder before breakfast 4 diphenoxylate-at ropine (LOMOTIL) 2.5-0.025 [...] and 1 hour after each dose).?? Avoid [place]'s Wort, grapefruit products and [place] oranges while on treatment. placed on hold 09/26/22 for covid 01/29/2022 4 levothyroxine (SYNTHROID) 88 mcg tabletIndication s:Hypothyroidism due to medication Take 1 tablet (88 mcg total) by mouth labels molder before breakfast 30 tablet 1 04/19/2022 2 [...] PM CDT) Color, ur Yellow Yellow [facility] Clarity, ur Clear Clear [facility] Specific gravity, ur 1.018 1.003 - 1.030 [facility] pH, urine 5.5 [facility] Protein, ur ql Negative Negative [facility] Glucose, ur ql Negative Negative [facility] Ketones, ur Negative Negative [facility] Bilirubin, ur Negative Negative [facility] Blood, ur Negative Negative [facility] Urobilinogen, ur <2.0 <2.0 mg/dL [facility] Nitrite, ur Negative Negative [facility] Leukocyte esterase, ur Negative Negative [facility] UA reflex comment Reflex conditions for microscopic UA and culture not met. [facility] Urine, clean voided 04/19/2022 2:48 PM CDT 04/19/2022 7:09 PM CDT Narrative [facility] - 04/19/2022 7:17 PM CDT ?? Urine pH is affected by diet, medications, systemic acid-base disturbances, and renal tubular function. ??pH may affect urinary stone formation. ??For example, urine pH below 6.0 may help reduce the tendency for calcium phosphate stones and pH greater than 6.0 may reduce the tendency for uric acid stone formation. Source: View[employer]. Last revised 07-18-2017 us Eren Cr MD LAB MICROBIOLOGY - GENERAL OR DERABLES Final Result [facility] One [facility] Department [place] [address] * (ABNORMAL) eGFR (04/19/2022 10:00 AM CDT) [facility] eGFR 47(L) 90 - 130 mL/min/1. 73 m2 [facility] Comment: Interpretive Data Reference Interval Normal [...] [facility] Department [place] [address] * Differential, auto (04/19/2022 10:00 AM CDT) Neutrophil abs 3.2 1.7 - 6.5 K/cumm [facility] Comment:Testing performed by : [facility], [address] [facility] [address] Imm gran abs 0.0 0.0 - 0.1 K/cumm [facility] Lymphocyte abs 0.8 0.8 - 3.3 K/cumm [facility] Monocyte abs 0.4 0.2 - 0.8 K/cumm [facility] Eosinophil abs 0.1 0.0 - 0.5 K/cumm [facility] Basophil abs 0.0 0.0 - 0.1 K/cumm [facility] Neutrophil pct 68.9 % [facility] Comment: Interpretive Data Percent cell count reference ranges are not reported, since discordance with absolute values may lead to misinterpretation of CBC data. Current Interpretive Data was last revised on 2017. Imm gran pct 0.7 % [facility] Comment: Interpretive Data Percent cell count reference ranges are not reported, since discordance with absolute values may lead to misinterpretation of CBC data. Current Interpretive Data was last revised on 2017. Lymphocyte pct 17.2 % [facility] Comment: Interpretive Data Percent cell count reference ranges are not reported, since discordance with absolute values may lead to misinterpretation of CBC data. Current Interpretive Data was last revised on 2017. Monocyte pct 9.4 % [facility] Comment: Interpretive Data Percent cell count reference ranges are not reported, since discordance with absolute values may lead to misinterpretation of CBC data. Current Interpretive Data was last revised on 2017. Eosinophil pct 3.1 % [facility] Comment: Interpretive Data Percent cell count reference ranges are not reported, since discordance with absolute values may lead to misinterpretation of CBC data. Current Interpretive Data was last revised on 2017. Basophil pct 0.7 % [facility] Comment: Interpretive Data Percent cell count reference ranges are not reported, since discordance with absolute values may lead to misinterpretation of CBC data. Current Interpretive Data was last revised on 2017. Blood 04/19/2022 10:0 0 AM CDT 04/19/2022 10:03 AM CDT Eren Cr MD LAB BLOOD ORDERABLES Final Re sult Performing Organization Address City/[facility]/ZIP Co de Phone Number [facility] One [facility] [place] [address] * (ABNORMAL) CBC with auto differential (04/19/2022 10:00 AM CDT) WBC 4.6 3.8 - 9.9 K/cumm [facility] Comment:Testing performed by : [address] [address] Hgb 11.7(L) 11.9 - 15.5 g/dL [facility] Comment:Testing performed by : [address] [address] Hct 35.5(L) 35.6 - 45.5 % [facility] Comment:Testing performed by : [address] [address] Plt 125(L) 150 - 400 K/cumm [facility] Comment:Testing performed by : [address] [address] MPV 10.6 9.1 - 12.3 fL [facility] RBC 3.54(L) 3.90 - 5.20 M/cumm [facility] MCV 100.3(H) 81.3 - 96.4 fL [facility] MCH 33.1 27.1 - 33.3 pg [facility] MCHC 33.0 32.3 - 35.7 g/dL [facility] RDW CV 14.1 11.1 - 14.9 % [facility] RDW SD 50.8(H) 35.7 - 48.1 fL [facility] NRBC abs 0.00 0.00 - 0.01 K/cumm [facility] Blood 04/19/2022 10:0 0 AM CDT 04/19/2022 10:03 AM CDT Eren Cr MD LAB BLOOD ORDERABLES Final Re sult Performing Organization Address City/[facility]/ZIP Co de Phone Number [facility] Department [place] [address] * (ABNORMAL) Comprehensive metabolic panel (04/19/2022 10:00 AM CDT) Sodium 140 135 - 145 mmol/L [facility] Comment:Testing performed by : [facility], [address] [place] [address] Potassium, pl 3.8 3.3 - 4.9 mmol/L [facility] Chloride 108 97 - 110 mmol/L [facility] CO2 26 22 - 32 mmol/L [facility] Anion gap 6 2 - 15 mmol/L [facility] BUN 15 8 - 25 mg/dL [facility] Creatinine 1.22(H) 0.60 - 1.10 mg/dL [facility] Glucose 116 70 - 199 mg/dL [facility] [...] 2017. Calcium 10.6(H) 8.5 - 10.3 mg/dL [facility] Bilirubin, total 0.4 0.1 - 1.2 mg/dL [facility] Protein, pl 6.3(L) 6.5 - 8.5 g/dL [facility] Albumin 4.0 3.5 - 5.0 g/dL [facility] Alk phos 51 40 - 130 Units/L [facility] ALT 21 7 - 45 Units/L [facility] AST 28 10 - 45 Units/L [facility] Blood 04/19/2022 10:0 0 AM CDT 04/19/2022 10:03 AM CDT us Eren Cr MD LAB BLOOD ORDERABLES Final Re sult Performing Organization Address [facility] [place] [address] * Magnesium (04/19/2022 10:00 AM CDT) Magnesium 1.6 1.4 - 2.5 mg/dL [facility] Comment:Testing performed by : [facility], [address] [place] [address] Blood 04/19/2022 10:0 0 AM CDT 04/19/2022 10:03 AM CDT Eren Cr MD LAB BLOOD ORDERABLES Final Re sult Performing Organization Address [facility] [place] [address] * (ABNORMAL) TSH (04/19/2022 10:00 AM CDT) Thyroid Stimulating Hormone 7.34(H) 0.30 - 4.20 mcIUnit/mL [facility] Blood 04/19/2022 10:0 0 AM CDT 04/19/2022 11:43 AM CDT Eren Cr MD LAB BLOOD ORDERABLES Final Re sult Performing Organization Address [facility] [place] [address] * (ABNORMAL) Lipid panel (04/19/2022 10:00 AM CDT) Cholesterol 121 30 - 199 mg/dL [facility] revised on 2018. Triglycerides 185(H) <=149 mg/dL [facility] Comment: [...] revised on 2018. HDL 56 >=40 mg/dL [facility] Comment: [...] 2018. LDL, calculated 28 <=129 mg/dL [facility] Comment: Interpretive Data Ages < [...] on 2018. Non-HDL Cholesterol 65 mg/dL [facility] Comment: Interpretive Data Ages < [...] ORDERABLES Final Re sult Performing Organization Address City/State/[facility] Co de Phone Number [facility] [address] * Phosphorus (04/19/2022 10:00 AM CDT) Pathologist [facility] Phosphorus, pl 2.8 2.3 - 4.5 mg/dL [facility] Comment:Testing performed by : [facility], [address] [place] [address] Blood 04/19/2022 10:0 0 AM CDT 04/19/2022 10:03 AM CDT Eren Cr MD LAB BLOOD ORDERABLES Final Re sult Performing Organization Address [facility] Co de Phone Number [facility] [address] * (ABNORMAL) Vitamin D 25 hydroxy (04/19/2022 10:00 AM CDT) [facility] Vitamin D 25-OH 23(L) 30 - 80 ng/mL [facility] Blood 04/19/2022 10:0 0 AM CDT 04/19/2022 11:43 AM CDT Eren Cr MD LAB BLOOD ORDERABLES Final Re sult Performing Organization Address [facility] Co de Phone Number [facility] [place] [address] * (ABNORMAL) Chromogranin A (04/19/2022 10:00 AM CDT) [facility] Chromogranin A 1141(H) <93 ng/mL [facility] Comment: Impaired renal or hepatic function or treatment with proton pump inhibitors may result in artifactual elevations of Chromogranin A. ADDITIONAL INFORMATION This test was developed and its performance characteristics determined by [facility] in a manner consistent with CLIA requirements. [...] a homogeneous time-resolved immunofluorescent assay manufactured by That{img} and performed on the [employer] Dream Heat KrReactionor Compact Plus. ? Values obtained with different assay methods or kits may be different and cannot be used interchangeably. ? Test results cannot be interpreted as absolute evidence for the presence or absence of malignant disease. Test Performed by: [facility] [id number] [place] [address] Justice Professor: Immanuel Novak M.D. 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
--- OUTSIDE RECORDS SUMMARY | 2024-06-26 02:03 | XMS_ITS | Encounter Summary ---
Author Organization [facility] Address [address] [place] [address] Phone Care Team Providers Care Material Control Manager Name Role Phone Julio César Briseno MD Primary Care Provider [phone] Eren Cr MD Unavailable [phone] Yohana Bowen MD Unavailable Reason for Visit * Reason Comments OP Infusion * Episode Based Medications (Routine) - Authorized Specialty Diagnoses / Procedures Referred By Contac t Referred To Contact Diagnoses Hypomagnesemia Eren Cr MD [address] [facility] [address] [place] [address] Phone: tel: fax: [facility] [address] 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
--- OUTSIDE RECORDS SUMMARY | 2024-06-26 02:03 | XMS_ITS | Encounter Summary ---
Author Organization [facility] Address [address] [place] [address] Phone Care Team Providers Care Interior Systems Carpenter Name Role Phone Julio César Briseno MD Primary Care Provider [phone] Eren Cr MD Unavailable [phone] Yohana Bowen MD Unavailable Encounter Details Date Type Department Care Team (Late st Contact Info) Description 07/03/2022 Orders Only [facility] Oncology [address] [place] [address] Eren Cr MD [address] [facility] [address] [place], [place] [id number] Dehydration (Primary Dx); Neuro-endocrine carcinoma (CMS/HCC) (HCC) [...] on file Legal Sex Female 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
--- OUTSIDE RECORDS SUMMARY | 2024-06-26 02:03 | XMS_ITS | Encounter Summary ---
Author Organization [facility] Address [address] [place] [address] Phone Care Team Providers Care Crossband Layer Name Role Phone Julio César Briseno MD Primary Care Provider Eren Cr MD Unavailable [phone] Yohana Bowen MD Unavailable Encounter Details Date Type Department Care Team (Late st Contact Info) Description 04/12/2022 Orders Only [facility] Oncology [address] [place] [address] Eren Cr MD [address] [place], [place] [id number] Social History Tobacco Use Types Packs/Day Years [...] on file Legal Sex Female 2: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
--- OUTSIDE RECORDS SUMMARY | 2024-06-26 02:03 | XMS_ITS | Encounter Summary ---
Author Organization [facility] Address [address] [place] [address] Phone Care Team Providers Care Oracle Security Consultant Name Role Phone Julio César Briseno MD Primary Care Provider [phone] Eren Cr MD Unavailable [phone] Yohana Bowen MD Unavailable Encounter Details Date Type Department Care Team (Late st Contact Info) Description 04/19/2022 Orders Only [facility]cology [address] [place] [address] Eren Cr MD [address] [place], [place] [id number] Social History Tobacco Use Types Packs/Day Years [...] file Legal 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 Gender Identity Not on file Sexual Orientation Straight 02/19/2021 9: 29 AM CDT Occupation Industry Job Start Date Job End Date retired Not on file Not on file Not on file documented as of this encounter Plan of Treatment Not on file documented as of this encounter Visit Diagnoses Not on filedocumented in this encounter Care Teams Oracle Security Consultant Relationship Specialty Start Date End Date Julio César Briseno MD PCP - General 10/01/16 Eren Cr MD Referring Physician Medical Oncology 11/25/18 Yohana Bowen MD Radiation Oncologist Radiation Oncology 11/25/18 documented as of this encounter
--- OUTSIDE RECORDS SUMMARY | 2024-06-26 02:03 | XMS_ITS | Encounter Summary ---
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 [address] [facility] Advanced Medicine 7th [place] [address] Phone: tel: Referral ID Status Reason Start Date Expiration Date V isits Requested Visits Authorized [id number] Authorized 03/02/2019 10/06/2024 1 60 Encounter Details Date Type Department Care Team (Late st Contact Info) Description 06/14/2022 11:00 AM INFORMATICA Infusion [facility] On[facility] [address] [place] [address] Malignant neoplasm metastatic to liver (CMS/HCC) (HCC) [...] on file Legal Sex Female 2:41 PM INFORMATICA Gender Identity Not on file Sexual Orientation Straight 02/19/2021 9: 29 AM CDT Occupation Industry Job Start Date Job End Date retired Not on file Not on file Not on file documented as of this encounter Nursing Notes * Hien Pat, RN - 06/14/2022 11:00 AM CST Oncology Nursing Note [facility] La Chung is a [...] Ambulatory Accompanied by: Friend Discharged To: Home RMATICA documented in this encounter Plan of Treatment [...] ine carcinoma (HCC) Given 06/14/2022 12:55 PM INFORMATICA 120 mg Right Lower Abdomen heparin 100 unit/mL flush 500 Units 500 Units (5 mL), IV flush, Once as needed, line care, Starting on Lydia 06/14/22 at 1048, Flush when all medication administered and labs completed for the day.Indications:Dehydra tion,Neuroendocrine carcinoma (HCC) Given 06/14/2022 10:56 AM INFORMATICA 500 Units octreotide LAR (SandoSTATIN LAR) extended release intramuscular injection 30 mg 30 mg, intramuscular, Once, On Lydia 06/14/22 at 1145, For 1 dose, Refrigerate. For IM intragluteal administration only- alternate gluteal sites. Shake.Indications:Malig nant neoplasm metastatic to liver (HCC),Neuroendocrine carcinoma (HCC) Given 06/14/2022 1:07 PM INFORMATICA 30 mg Right Dorsogluteal/But tock ondansetron (ZOFRAN) injection 8 mg 8 mg, intravenous, Administer over 2 Minutes, Once, On Lydia 06/14/22 at 1300, For 1 doseIndications:Bone metastasis,Neuro-endocr ine carcinoma (HCC) Given 06/14/2022 12:29 PM INFORMATICA 8 mg sodium chloride 0.9% bolus 1,000 mL 1,000 mL, intravenous, at 500 mL/hr, Administer over 2 Hours, Once, On Lydia 06/14/22 at 1130, For 1 doseIndications:Dehydra tion,Neuroendocrine carcinoma (HCC) New Bag 06/14/2022 10:55 AM INFORMATICA 1,000 mL 500 mL/hr documented in this encounter Orders Medications Ordered That Brett ht Not Have Been Administered Count Last Ordered Date First Ordered Date sodium chloride 0.9% flush 10 mL 1 06/14/20 Nursing Count Last Ordered Date First Orde red Date ONCBCN NURSING COMMUNICATION [id number] 1 06/14 ONCBCN NURSING COMMUNICATION [id number] 1 1 08/15/2021 PHYSICIAN COMMUNICATION ORDER 1 06/14/2022 Appointment Requests Count Last Ordered Date Fi rst Ordered Date ONCBCN INFUSION APPT REQUEST 1 06/14/2022 documented in this encounter Care Teams Acquisition Consultant Relationship Specialty Start Date End Date Julio César Briseno MD PCP - General 10/01/16 Eren rC MD Referring Physician Medical Oncology 11/25/18 Yohana Bowen MD Radiation Oncologist Radiation Oncology 11/25/18 documented as of this encounter
--- OUTSIDE RECORDS SUMMARY | 2024-06-26 02:03 | XMS_ITS | Encounter Summary ---
Author Organization [facility] Address [address] [place] [address] Phone Care Team Providers Care Forester Silviculture Name Role Phone Julio César Briseno MD Primary Care Provider [phone] Eren Cr MD Unavailable [phone] Yohana Bowen MD Unavailable Reason for Visit * Episode Based Medications (Routine) - Closed Specialty Diagnoses / Procedures Referred By Evelyne bowman Referred To Contact Diagnoses Neuro-endocrine carcinoma (HCC) Procedures study [id number] phase III cabozantinib Eren Cr MD [address] [facility] [address] [place] [address] Phone: tel: fax: [facility] at [facility] and [facility] [address] [facility] Advanced Medicine 7th [place] [address] Phone: tel: Referral ID Status Reason Start Date Expiration Date Visits Re quested Visits Authorized [id number] Closed 06/21/2021 06/26/2024 1 99 Encounter Details Date Type Department Care Team (Latest Contact Info) Description 05/17/2022 2:00 PM WELT SEWER Research Med Pick-Up/CTRU Yard General Car Supervisor [facility] Oncology [address] [place] [address] Neuro-endocrine carcinoma (CMS/HCC) (HCC) (Primary Dx) Social [...] on file Legal Sex Female 2:41 PM WELT SEWER Gender Identity Not on file Sexual [...] Date First Ordered Date [id number] cabozantinib/pl acebo (08-122/[id number]) tablet 20 mg 1 05/17/2022 Nursing Count Last Ordered Date First Orde red Date ONCBCN CLINICAL PHARMACIST REVIEW 1 022 ONCBCN STUDY COMMUNICATION 2 1 05/17/2022 ONCBCN TREATMENT PARAMETERS 1 1 05/17/2022 RESEARCH STUDY CLARIFICATION ORDER 1 2021 Appointment Requests Count Last Ordered Date Fi rst Ordered Date ONCBCN TAKE HOME STUDY DRUG APPT 1 05/17/20 22 documented in this encounter Care Teams Forester Silviculture Relationship Specialty Start Date End Date Julio César Briseno MD PCP - General 10/01/16 Eren Cr MD Referring Physician Medical Oncology 11/25/18 Yohana Bowen MD Radiation Oncologist Radiation Oncology 11/25/18 documented as of this encounter
--- OUTSIDE RECORDS SUMMARY | 2024-06-26 02:03 | XMS_ITS | Encounter Summary ---
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) (HCC) [...] on file Legal Sex Female 2:41 PM DOPE SPRAYER Gender Identity Not on file Sexual Orientation Straight 02/19/2021 9: 29 AM CDT Occupation Industry Job Start Date Job End Date retired Not on file Not on file Not on file documented as of this encounter Last Filed Vital Signs Vital Sign Reading Time Taken Comments Blood Pressure 155/82 06/07/2022 3:11 PM DOPE SPRAYER Pulse 77 06/07/2022 3:11 PM DOPE SPRAYER Temperature 36.8 ??C (98.2 ??F) 06/07/2022 3:11 PM CS T Respiratory Rate 20 06/07/2022 3:11 PM DOPE SPRAYER Oxygen Saturation 98% 06/07/2022 3:11 PM DOPE SPRAYER Inhaled Oxygen Concentration - - Weight 75.8 kg (167 lb) 06/07/2022 3:11 PM DOPE SPRAYER Height - - Body Mass Index 29.58 04/09/2022 7:02 PM CDT documented in this encounter Nursing Notes * Magaly Lucas, IRVING - 06/07/2022 3:00 PM CST Oncology Nursing Note [facility] La Chung is [...] parameters Pre blood return: Brisk from IV La Chung tolerated treatment well. Patient was [...] Accompanied by: Self/ Family Discharged To: Home SPRAYER documented in this encounter Plan of Treatment [...] CannulaIndications:Occluded Arteriovenous Cannula Given 06/07/2022 4:03 PM DOPE SPRAYER 2 mg sodium chloride 0.9% bolus 1,000 mL 1,000 mL, intravenous, at 500 mL/hr, Administer over 2 Hours, Once, On Lydia 06/07/22 at 1530, For 1 doseIndications:Dehydration,N euroendocrine carcinoma (HCC) New Bag 06/07/2022 1:32 PM DOPE SPRAYER 1,000 mL 500 mL/hr documented in this encounter Orders Appointment Requests Count Last Ordered Date Fi rst Ordered Date ONCBCN INFUSION APPT REQUEST 1 06/07/2022 documented in this encounter Care Teams Ramp Agent Relationship Specialty Start Date End Date Julio César Briseno MD PCP - General 10/01/16 Eren Cr MD Referring Physician Medical Oncology 11/25/18 Yohana Bowen MD Radiation Oncologist Radiation Oncology 11/25/18 documented as of this encounter
--- OUTSIDE RECORDS SUMMARY | 2024-06-26 02:03 | XMS_ITS | Encounter Summary ---
Author Organization [facility] Address [address] [place] [address] Phone Care Team Providers Care Network Cabler Name Role Phone Julio César Briseno MD Primary Care Provider [phone] Eren Cr MD Unavailable [phone] Yohana Bowen MD Unavailable Reason for Visit * Reason Comments OP Infusion * Episode Based Medications (Routine) - Authorized Specialty Diagnoses / Procedures Referred By Contac t Referred To Contact Oncology Diagnoses Neuroendocrine carcinoma (HCC) Malignant neoplasm metastatic to liver (HCC) Procedures DE OCTREOTIDE INJECTION, DEPOT Octreotide 28 Day Cycles - Carcinoid Eren Cr MD [address] [place] [address] Phone: tel: fax: [address] [address] Phone: tel: fax: Referral ID Status Reason Start Date Expiration Date V isits Requested Visits Authorized [id number] Authorized 11/28/2017 02/05/2025 1 150 Encounter Details Date Type Department Care Team (Late st Contact Info) Description 07/12/2022 11:45 AM CONVEYOR WORKER Infusion [facility] Oncology [address] [place] [address] Neuroendocrine carcinoma (CMS/HCC) (HCC) (Primary Dx); Malignant [...] file Legal Sex Female 2:41 PM CONVEYOR WORKER Gender Identity Not on file Sexual Orientation Straight 02/19/2021 9: 29 AM CDT Occupation Industry Job Start Date Job End Date retired Not on file Not on file Not on file documented as of this encounter Nursing Notes * Hien Pat, RN - 07/12/2022 11:45 AM CST Oncology Nursing Note [facility] La Chung is a 71 y.o. [...] Ambulatory Accompanied by: Spouse Discharged To: Home EYOR WORKER documented in this encounter Plan of [...] crine carcinoma (HCC) Given 07/12/2022 2:31 PM CONVEYOR WORKER 650 mg denosumab (XGEVA) subcutaneous syringe 120 mg 120 mg, subcutaneous, Once, On Lydia 07/12/22 at 1245, For 1 dose, Calcium level should be greater than 8 mg/dl Administer injection in upper arm, abdomen or upper thigh Refrigerate. Allow to stand 15 to 30 mins prior to useIndications:Bone metastasis,Neuro-endo crine carcinoma (HCC) Given 07/12/2022 2:53 PM CONVEYOR WORKER 120 mg Right Lower Abdomen magnesium sulfate 2 g in sodium chloride 0.9% 1,004 mL infusion 500 mL/hr, intravenous, Once, On Lydia 07/12/22 at 1300, For 1 doseIndications:Dehyd ration,Neuroendocrine carcinoma (HCC) New Bag 07/12/2022 12:39 PM CONVEYOR WORKER 500 mL/hr 500 mL/hr octreotide LAR (SandoSTATIN LAR) extended release intramuscular injection 30 mg 30 mg, intramuscular, Once, On Lydia 07/12/22 at 1245, For 1 dose, Refrigerate. For IM intragluteal administration only- alternate gluteal sites. Shake.Indications:Mal ignant neoplasm metastatic to liver (HCC),Neuroendocrine carcinoma (HCC) Given 07/12/2022 2:53 PM CONVEYOR WORKER 30 mg Left Ventrogluteal documented in this encounter Orders Medications Ordered That Brett ht Not Have Been Administered Count Last Ordered Date First Ordered Date ondansetron (ZOFRAN) injection 8 mg 1 07/12 Nursing Count Last Ordered Date First Orde red Date ONCBCN NURSING COMMUNICATION [id number] 2 07/12 ONCBCN NURSING COMMUNICATION [id number] 1 0 07/12/2022 PHYSICIAN COMMUNICATION ORDER 1 07/12/2022 Appointment Requests Count Last Ordered Date Fi rst Ordered Date ONCBCN INJECTION APPOINTMENT REQUEST 1 11/2022 documented in this encounter Care Teams Network Cabler Relationship Specialty Start Date End Date Julio César Briseno MD PCP - General 10/01/16 Eren Cr MD Referring Physician Medical Oncology 11/25/18 Yohana Bowen MD Radiation Oncologist Radiation Oncology 11/25/18 documented as of this encounter
--- OUTSIDE RECORDS SUMMARY | 2024-06-26 02:03 | XMS_ITS | Encounter Summary ---
Author Organization [facility] Address [address] [place] [address] Phone Care Team Providers Care Engineer/Conductor Name Role Phone Julio César Briseno MD Primary Care Provider [phone] Eren Cr MD Unavailable [phone] Yohana Bowen MD Unavailable Reason for Visit * Reason Comments Port Draw * Episode Based Medications (Routine) - Closed Specialty Diagnoses / Procedures Referred By Contellen t Referred To Contact Diagnoses Neuro-endocrine carcinoma (HCC) Procedures study [id number] phase III cabozantinib Eren Cr MD [address] [place] [address] Phone: tel: fax: [facility] at [facility] and [facility] [address] [facility] Advanced Medicine 7th [place] [address] Phone: tel: Referral ID Status Reason Start Date Expiration Date Visits Re quested Visits Authorized [id number] Closed 06/21/2021 06/26/2024 1 99 Encounter Details Date Type Department Care Team (Latest Contact Info) Description 05/17/2022 11:00 AM JUDICIAL REGISTRAR Clinical Support [facility] Oncology [address] [place] [address] Neuro-endocrine carcinoma (CMS/HCC) (HCC) Social History Tobacco [...] file Legal Sex Female 2:41 PM JUDICIAL REGISTRAR Gender Identity Not on file Sexual Orientation [...] 05/17/2022 documented in this encounter Care Teams Engineer/Conductor Relationship Specialty Start Date End Date Julio César Briseno MD PCP - General 10/01/16 Eren Cr MD Referring Physician Medical Oncology 11/25/18 Yohana Bowen MD Radiation Oncologist Radiation Oncology 11/25/18 documented as of this encounter
--- OUTSIDE RECORDS SUMMARY | 2024-06-26 02:03 | XMS_ITS | Encounter Summary ---
Author Organization [facility] Address [address] [place] [address] Care Team Providers Care Supervisor Cigar Making Machine Name Role Phone Julio César Briseno MD Primary Care Provider Eren Cr MD Unavailable [phone] Yohana Bowen MD Unavailable Encounter Details Date Type Department Care Team (Latest Contact Info) Description 07/05/2022 7:38 AM ELECTRICIAN CONTROL EQUIPMENT - 07/05/2022 11:59 PM ELECTRICIAN CONTROL EQUIPMENT Hospital Encounter [facility] Advanced [facility] ([facility]) [address] [place] [address] Dehydration (Primary Dx); Neuro-endocrine carcinoma (CMS/HCC) [...] on file Legal Sex Female 2:41 PM ELECTRICIAN CONTROL EQUIPMENT Gender Identity Not on file Sexual Orientation Straight 02/19/2021 9: 29 AM CDT Occupation Industry Job Start Date Job End Date retired Not on file Not on file Not on file documented as of this encounter Last Filed Vital Signs Vital Sign Reading Time Taken Comments Blood Pressure 123/63 07/05/2022 7:45 AM ELECTRICIAN CONTROL EQUIPMENT Pulse 71 07/05/2022 7:45 AM ELECTRICIAN CONTROL EQUIPMENT Temperature 36.5 ??C (97.7 ??F) 07/05/2022 7:45 AM CS T Respiratory Rate 18 07/05/2022 7:45 AM ELECTRICIAN CONTROL EQUIPMENT Oxygen Saturation 100% 07/05/2022 7:45 AM ELECTRICIAN CONTROL EQUIPMENT Inhaled Oxygen Concentration - - Weight - [...] capsuleIndicatio ns:supplement Take 1 tablet by mouth compliance paralegal before breakfast 07/04/2016 4 cholecalciferol (VITAMIN D-3) 2,000 unit capsule Take 1 capsule (2,000 Units total) by mouth daily 30 capsule 2 04/25/2019 3 clotrimazole-bet amethasone (LOTRISONE) cream Apply 1 Application topically daily as needed (rash) 4 coenzyme [id number] E 100-5 mg-unit capsuleIndicatio ns:supplement Take 1 tablet by mouth compliance paralegal before breakfast 4 diphenoxylate-at ropine (LOMOTIL) 2.5-0.025 [...] dose).?? Avoid Jas's Wort, grapefruit products and Davey oranges while on treatment. placed on hold 09/26/22 for covid 01/29/2022 4 levothyroxine (SYNTHROID) 88 mcg tabletIndication s:Hypothyroidism due to medication TAKE 1 TABLET (88 MCG TOTAL) BY MOUTH PLSQL DEVELOPER BEFORE BREAKFAST 30 tablet 1 07/03/2022 3 [...] 07/05/2022 8:15 AM CST Pt arrived to [facility] for IVF. PAC accessed and 1L NS initiated. PAC instilled w/ heparin and de-accessed. Pt ambulatory and discharged to home accompanied by spouse. TRICIAN CONTROL EQUIPMENT documented in this encounter Plan of Treatment [...] euroendocrine carcinoma (HCC) Given 07/05/2022 10:06 AM ELECTRICIAN CONTROL EQUIPMENT 500 Units sodium chloride 0.9% bolus 1,000 mL 1,000 mL, intravenous, at 500 mL/hr, Administer over 2 Hours, Once, On Lydia 07/05/22 at 0820, For 1 doseIndications:Dehydration,N euroendocrine carcinoma (HCC) New Bag 07/05/2022 7:54 AM ELECTRICIAN CONTROL EQUIPMENT 1,000 mL 500 mL/hr documented in this encounter Orders Appointment Requests Count Last Ordered Date Fi rst Ordered Date ONCBCN INFUSION APPT REQUEST 1 07/05/2022 documented in this encounter Care Teams Supervisor Cigar Making Machine Relationship Specialty Start Date End Date Julio César Briseno MD PCP - General 10/01/16 Eren Cr MD Referring Physician Medical Oncology 11/25/18 Yohana Bowen MD Radiation Oncologist Radiation Oncology 11/25/18 documented as of this encounter
--- OUTSIDE RECORDS SUMMARY | 2024-06-26 02:03 | XMS_ITS | Encounter Summary ---
Author Organization [facility] Address [address] [place] [address] Phone Care Team Providers Care 2Nd Pressman Name Role Phone Julio César Briseno MD Primary Care Provider [phone] Eren Cr MD Unavailable [phone] Yohana Bowen MD Unavailable Reason for Visit * Reason Comments Injections * Episode Based Medications (Routine) - Authorized Specialty Diagnoses / Procedures Referred By Contac t Referred To Contact Oncology Diagnoses Neuroendocrine carcinoma (HCC) Malignant neoplasm metastatic to liver (HCC) Procedures [place] OCTREOTIDE INJECTION, DEPOT Octreotide 28 Day Cycles - Carcinoid Eren Cr MD [address] [place] [address] Phone: tel: fax: [address] [address] Phone: tel: fax: Referral ID Status Reason Start Date Expiration Date V isits Requested Visits Authorized [id number] Authorized 11/28/2017 02/05/2025 1 150 Encounter Details Date Type Department Care Team (Late st Contact Info) Description 06/14/2022 11:15 AM GLEASON OPERATOR Infusion [facility] Oncology [address] [place] [address] Neuroendocrine carcinoma (CMS/HCC) (HCC); Malignant neoplasm metastatic [...] on file Legal Sex Female 2:41 PM GLEASON OPERATOR Gender Identity Not on file Sexual [...] 02/2022 documented in this encounter Care Teams 2Nd Pressman Relationship Specialty Start Date End Date Julio César Briseno MD PCP - General 10/01/16 Eren Cr MD Referring Physician Medical Oncology 11/25/18 Yohana Bowen MD Radiation Oncologist Radiation Oncology 11/25/18 documented as of this encounter"
--- OUTSIDE RECORDS SUMMARY | 2024-06-26 02:03 | XMS_ITS | Encounter Summary ---
Author Organization [facility] Address [address] [place] [address] Phone Care Team Providers Care Charging Board Operator Name Role Phone Julio César Briseno MD Primary Care Provider [phone] Eren Cr MD Unavailable [phone] Yohana Bowen MD Unavailable Reason for Visit * Reason Comments OP Infusion * Episode Based Medications (Routine) - Authorized Specialty Diagnoses / Procedures Referred By Contac t Referred To Contact Oncology Diagnoses 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) Procedures AR DENOSUMAB INJECTION DENOSUMAB (XGEVA) Eren Cr MD [address] [facility] [address] [place] [address] Phone: tel: fax: [facility] at [facility] [address] 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) [...] file Legal Sex Female 2:41 PM CAR SUPERVISOR Gender Identity Not on file Sexual Orientation Straight 02/19/2021 9: 29 AM CDT Occupation Industry Job Start Date Job End Date retired Not on file Not on file Not on file documented as of this encounter Nursing Notes * Babs Stokes, RN - 05/17/2022 12:00 PM CST Oncology Nursing Note [facility] La Chung is a [...] Vision: At baseline (hearing loss; evaluted by dry house operator) Other neuro symptoms: Other: (comment) Pain: No [...] Ambulatory Accompanied by: Self Discharged To: Home SUPERVISOR SUPERVISOR * Babs Stokes RN - 05/17/2022 12:00 PM CST Oncology Nursing Note [facility] La Chung is a [...] Vision: At baseline (hearing loss; evaluted by dry house operator) Other neuro symptoms: Other: (comment) Pain: No [...] La Chung tolerated injection well Additional Notes: SUPERVISOR documented in this encounter Plan of [...] (HCC),Neuroendocrine carcinoma (HCC) Given 05/17/2022 4:21 PM CAR SUPERVISOR 30 mg Left Dorsogluteal/B uttock ondansetron (ZOFRAN) injection 8 mg 8 mg, intravenous, Administer over 2 Minutes, Once as needed, nausea, vomiting, Starting on Lydia 05/17/22 at 1555, For 1 doseIndications:Hypophosp hatemia Given 05/17/2022 3:56 PM CAR SUPERVISOR 8 mg sodium chloride 0.9% bolus 1,000 mL 1,000 mL, intravenous, at 500 mL/hr, Administer over 2 Hours, Once, On Lydia 05/17/22 at 1445, For 1 doseIndications:Dehydrati on,Neuroendocrine carcinoma (HCC) New Bag 05/17/2022 2:14 PM CAR SUPERVISOR 1,000 mL 500 mL/hr documented in this encounter Orders Medications Ordered That Brett ht Not Have Been Administered Count Last Ordered Date First Ordered Date sodium chloride 0.9% bolus 1,000 mL 1 05/17 Nursing Count Last Ordered Date First Orde red Date ONCBCN NURSING COMMUNICATION [id number] 1 05/17 Appointment Requests Count Last Ordered Date Fi rst Ordered Date ONCBCN INFUSION APPT REQUEST 1 05/17/2022 documented in this encounter Care Teams Charging Board Operator Relationship Specialty Start Date End Date Julio César Briseno MD PCP - General 10/01/16 Eren Cr MD Referring Physician Medical Oncology 11/25/18 Yohana Bowen MD Radiation Oncologist Radiation Oncology 11/25/18 documented as of this encounter
--- OUTSIDE RECORDS SUMMARY | 2024-06-26 02:04 | XMS_ITS | Encounter Summary ---
Author Organization [facility] Address [address] [place] [address] Care Team Providers Care Children'S Ministries Director Name Role Phone Julio César Briseno MD Primary Care Provider [phone] Eren Cr MD Unavailable [phone] Yohana Bowen MD Unavailable Reason for Referral * MRI/CAT/PET Scan (Routine) - Closed Specialty Diagnoses / Procedures [facility] Referred To Contact Radiology Diagnoses Neuroendocrine carcinoma (HCC) Malignant neoplasm metastatic to liver (HCC) Bone metastasis Procedures CT chest abdomen pelvis with contrast Eren Cr MD [address] [place] [address] Phone: tel: fax: [facility] [address] [place] [address] Referral ID Status Reason Start Date Expiration Date Visits Re quested Visits Authorized [id number] Closed 02/26/2022 03/28/2023 1 1 Reason for Visit * MRI/CAT/PET Scan (Routine) - Closed Specialty Diagnoses / Procedures Referred By [facility] Referred To Contact Radiology Diagnoses Neuroendocrine carcinoma (HCC) Malignant neoplasm metastatic to liver (HCC) Bone metastasis Procedures CT chest abdomen pelvis with contrast Eren Cr MD [address] [employer] [place] [address] Phone: tel: fax: [facility] [address] [place] [address] Referral ID Status Reason Start Date Expiration Date Visits Re quested Visits Authorized [id number] Closed 02/26/2022 03/28/2023 1 1 Encounter Details Date Type Department Care Team (Latest Contact Info) Description 03/21/2022 3:28 PM CDT - 03/21/2022 11:59 PM CDT Hospital Encounter [facility] Radiology at [facility] [address] [place] [address] Neuroendocrine carcinoma (CMS/HCC) (HCC); Malignant [...] on file Legal Sex Female 2:41 PM CHURN DRILLER Gender Identity Not on file Sexual Orientation [...] capsuleIndications :supplement Take 1 tablet by mouth cokeman before breakfast 07/04/2016 4 cholecalciferol (VITAMIN D-3) 2,000 unit capsule Take 1 capsule (2,000 Units total) by mouth daily 30 capsule 2 04/25/2019 3 cholestyramine (QUESTRAN) 4 gram packet Take 1 packet by mouth 3 (three) times a day with meals 270 packet 3 09/04/2019 2 clotrimazole-betam ethasone (LOTRISONE) cream Apply 1 Application topically daily as needed (rash) 4 coenzyme [id number] E 100-5 mg-unit capsuleIndications :supplement Take 1 tablet by mouth cokeman before breakfast 4 diphenoxylate-atro pine (LOMOTIL) 2.5-0.025 [...] and 1 hour after each dose).?? Avoid [place]'s Wort, grapefruit products and [place] oranges while on treatment. placed on hold 09/26/22 for covid 01/29/2022 4 levothyroxine (SYNTHROID) 75 mcg tabletIndications: Hypothyroidism due to medication TAKE 1 TABLET (75 MCG TOTAL) BY MOUTH ROOF TRUSS BUILDER BEFORE BREAKFAST 90 tablet 1 02/22/2022 2 [...] hepatic metastases. ??For reference segment 7 lesion (-[id number]) measures 2.3 x 1.9 cm, unchanged segment [...] hepatic metastases. For reference segment 7 lesion (-[id number]) measures 2.3 x 1.9 cm, unchanged segment [...] mL documented in this encounter Care Teams Children'S Ministries Director Relationship Specialty Start Date End Date Julio César Briseno MD PCP - General 10/01/16 Eren Cr MD Referring Physician Medical Oncology 11/25/18 Yohana Bowen MD Radiation Oncologist Radiation Oncology 11/25/18 documented as of this encounter
--- OUTSIDE RECORDS SUMMARY | 2024-06-26 02:04 | XMS_ITS | Encounter Summary ---
Author Organization [facility] Address [address] [place] [address] Phone Care Team Providers Care Egg Processor Name Role Phone Julio César Briseno MD Primary Care Provider Eren Cr MD Unavailable [phone] Yohana Bowen MD Unavailable Encounter Details Date Type Department Care Team (Late st Contact Info) Description 03/15/2022 Orders Only [facility] [address] [place] [address] Rupali Kohler, [place] Social History Tobacco Use [...] on file Legal Sex Female 2:41 PM SHAREPOINT ENGINEER Gender Identity Not on file Sexual Orientation Straight 02/19/2021 9: 29 AM CDT Occupation Industry Job Start Date Job End Date retired Not on file Not on file Not on file documented as of this encounter Plan of Treatment Not on file documented as of this encounter Visit Diagnoses Not on filedocumented in this encounter Care Teams Egg Processor Relationship Specialty Start Date End Date Julio César Briseno MD PCP - General 10/01/16 Eren Cr MD Referring Physician Medical Oncology 11/25/18 Yohana Bowen MD Radiation Oncologist Radiation Oncology 11/25/18 documented as of this encounter
--- OUTSIDE RECORDS SUMMARY | 2024-06-26 02:04 | XMS_ITS | Encounter Summary ---
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 Gender Identity Not on file Sexual Orientation [...] Take 1 tablet by 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 Avoid [place]'s Wort, grapefruit products and [place] oranges while on treatment. placed on hold 09/26/22 for covid 01/29/2022 4 levothyroxine (SYNTHROID) 75 mcg tabletIndications: Hypothyroidism due to medication TAKE 1 TABLET (75 MCG TOTAL) BY MOUTH EMERGENCY TELECOMMUNICATIONS DISPATCHER BEFORE BREAKFAST 90 tablet 1 02/22/2022 2 [...] 90 - 130 mL/min/1. 73 m2 [facility] Comment: Interpretive Data Reference Interval Normal [...] LAB BLOOD ORDERABLES Final Re sult [facility] [place] [address] * (ABNORMAL) Differential, auto (03/22/2022 9:53 AM CDT) Neutrophil abs 2.1 1.7 - 6.5 K/cumm [facility] Comment:Testing performed by : [facility], [address] [place] [address] Imm gran abs 0.0 0.0 - 0.1 K/cumm [facility] Lymphocyte abs 0.4(L) 0.8 - 3.3 K/cumm [facility] Monocyte abs 0.4 0.2 - 0.8 K/cumm [facility] Eosinophil abs 0.1 0.0 - 0.5 K/cumm [facility] Basophil abs 0.0 0.0 - 0.1 K/cumm [facility] Neutrophil pct 69.0 % [facility] Comment: Consistent with previous result Interpretive Data Percent cell count reference ranges are not reported, since discordance with absolute values may lead to misinterpretation of CBC data. Current Interpretive Data was last revised on 2017. Imm gran pct 0.3 % [facility] Comment: Interpretive Data Percent cell count reference ranges are not reported, since discordance with absolute values may lead to misinterpretation of CBC data. Current Interpretive Data was last revised on 2017. Lymphocyte pct 14.0 % [facility] Comment: Interpretive Data Percent cell count reference ranges are not reported, since discordance with absolute values may lead to misinterpretation of CBC data. Current Interpretive Data was last revised on 2017. Monocyte pct 12.3 % [facility] Comment: Interpretive Data Percent cell count reference ranges are not reported, since discordance with absolute values may lead to misinterpretation of CBC data. Current Interpretive Data was last revised on 2017. Eosinophil pct 3.7 % [facility] Comment: Interpretive Data [...] sult Performing Organization Address [facility] Co de Phone Number [facility] [place] [address] * Magnesium (03/22/2022 9:53 AM CDT) Magnesium 1.5 1.4 - 2.5 mg/dL [facility] Comment:Testing performed by : [address] [address] Blood 03/22/2022 9:53 AM CDT 03/22/2022 9:55 AM CDT Eren Cr MD LAB BLOOD ORDERABLES Final Re sult Performing Organization Address [facility] de Phone Number [facility] [place] [address] * (ABNORMAL) Lipid panel (03/22/2022 9:53 AM CDT) Cholesterol 165 30 - 199 mg/dL [facility] Comment: Interpretive Data Ages < or [...] on 2018. Triglycerides 162(H) <=149 mg/dL [facility] Comment: Interpretive Data Ages < or [...] revised on 2018. HDL 56 >=40 mg/dL [facility] Comment: Interpretive Data Ages < or [...] 2018. LDL, calculated 77 <=129 mg/dL [facility] Comment: Interpretive Data Ages < or [...] revised on 2018. Non-HDL Cholesterol 109 mg/dL [facility] Comment: Interpretive Data Ages < or [...] revised on 2018. Chol/HDL ratio 3 [facility] Blood 03/22/2022 9:53 AM CDT 03/22/2022 11:25 AM CDT us Eren Cr MD LAB BLOOD ORDERABLES Final Re sult [facility] Department [place] [address] * (ABNORMAL) Phosphorus (03/22/2022 9:53 AM CDT) Phosphorus, pl 1.8(L) 2.3 - 4.5 mg/dL [facility] Comment:Testing performed by : [address] [address] Blood 03/22/2022 9:53 AM CDT 03/22/2022 9:55 AM CDT Eren Cr MD LAB BLOOD ORDERABLES Final Re sult Performing Organization Address City/[facility]/ZIP Co de Phone Number [facility] Department [place] [address] * (ABNORMAL) Vitamin D 25 hydroxy (03/22/2022 9:53 AM CDT) [facility] Vitamin D 25-OH 23(L) 30 - 80 ng/mL [facility] Blood 03/22/2022 9:53 AM CDT 03/22/2022 11:25 AM CDT Eren Cr MD LAB BLOOD ORDERABLES Final Re sult Performing Organization Address City/[facility] [employer] de Phone Number [facility] [place] [address] * (ABNORMAL) CBC with auto differential (03/22/2022 9:53 AM CDT) [facility] WBC 3.0(L) 3.8 - 9.9 K/cumm [facility] Comment:Testing performed by : [address] [address] Hgb 11.4(L) 11.9 - 15.5 g/dL [facility] Comment:Testing performed by : [address] [address] Hct 35.0(L) 35.6 - 45.5 % [facility] Comment:Testing performed by : [address] [address] Plt 97(L) 150 - 400 K/cumm [facility] Comment:Testing performed by : [facility], [address] [place] [address] MPV 10.3 9.1 - 12.3 fL [facility] RBC 3.48(L) 3.90 - 5.20 M/cumm [facility] MCV 100.6(H) 81.3 - 96.4 fL [facility] MCH 32.8 27.1 - 33.3 pg [facility] MCHC 32.6 32.3 - 35.7 g/dL [facility] RDW CV 14.4 11.1 - 14.9 % [facility] RDW SD 51.6(H) 35.7 - 48.1 fL [facility] NRBC abs 0.00 0.00 - 0.01 K/cumm [facility] Blood 03/22/2022 9:53 AM CDT 03/22/2022 9:55 AM CDT Eren Cr MD LAB BLOOD ORDERABLES Final Re sult [facility] Department [place] [address] * (ABNORMAL) Comprehensive metabolic panel (03/22/2022 9:53 AM CDT) Sodium 139 135 - 145 mmol/L [facility] Comment:Testing performed by : [facility], [address] [place] [address] Potassium, pl 4.3 3.3 - 4.9 mmol/L [facility] Chloride 111(H) 97 - 110 mmol/L [facility] CO2 24 22 - 32 mmol/L [facility] Anion gap 4 2 - 15 mmol/L [facility] BUN 12 8 - 25 mg/dL [facility] Creatinine 1.20(H) 0.60 - 1.10 mg/dL [facility] Glucose 126 70 - 199 mg/dL [facility] Comment: Interpretive Data Fasting glucose >/= [...] 2017. Calcium 9.8 8.5 - 10.3 mg/dL [facility] Bilirubin, total 0.6 0.1 - 1.2 mg/dL [facility] Protein, pl 6.4(L) 6.5 - 8.5 g/dL [facility] Albumin 4.2 3.5 - 5.0 g/dL [facility] Alk phos 70 40 - 130 Units/L [facility] ALT 20 7 - 45 Units/L [facility] AST 29 10 - 45 Units/L [facility] Blood 03/22/2022 9:53 AM CDT 03/22/2022 9:55 AM CDT us Eren Cr MD LAB BLOOD ORDERABLES Final Re sult [facility] [place] [address] * (ABNORMAL) Chromogranin A (03/22/2022 9:53 AM CDT) Chromogranin A 1003(H) <93 ng/mL [facility] Comment: [...] a homogeneous time-resolved immunofluorescent assay manufactured by [employer] and performed on the Field Agent Kryptor Compact Plus. ? Values obtained with different assay methods or kits may be different and cannot be used interchangeably. ? Test results cannot be interpreted as absolute evidence for the presence or absence of malignant disease. Test Performed by: [facility] [address] [place] [address] Store Detective: Immanuel Novak M.D. Ph.D.; CLIA# [id number] Blood 03/22/2022 9:5 3 AM CDT 03/22/2022 11:54 AM CDT Eren Cr MD LAB BLOOD ORDERABLES Final Re sult Performing Organization Address [facility] de Phone Number [facility] [address] [place] [address] * (ABNORMAL) Protein / creatinine ratio, urine, random (03/22/2022 9:50 AM CDT) Protein, ur, quant 45.0 mg/dL [facility] Comment: Interpretive Data No reference range established. Current interpretive data was last revised 2018. Creatinine Ur 235.0 mg/dL [facility] Comment: Interpretive Data No reference range established. Current interpretive data was last revised 2018. 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
--- OUTSIDE RECORDS SUMMARY | 2024-06-26 02:04 | XMS_ITS | Encounter Summary ---
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) Procedures AK OCTREOTIDE INJECTION, DEPOT Octreotide 28 Day Cycles - Carcinoid Eren Cr MD [address] [facility] [address] [place] [address] Phone: tel: fax: [facility] [address] [address] Phone: tel: fax: Referral ID Status Reason Start Date Expiration Date V isits Requested Visits Authorized [id number] Authorized 11/28/2017 02/05/2025 1 150 Encounter Details Date Type Department Care Team (Late st Contact Info) Description 03/22/2022 10:00 AM CDT Office Visit [facility] [address] [place] [address] Eren Cr MD [address] [place] [address] Malignant neoplasm metastatic to liver (CMS/HCC) (HCC) [...] on file 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 . Minimal erythema. NEURO: A&Ox4, foil stamp operator grossly intact by conversation, moving all [...] Neuroendocrine tumor Cancer [facility]: No change in treatment plan documented [...] 022 documented in this encounter Care Teams Ordnance Engineering Technician Relationship Specialty Start Date End Date Julio César Briseno MD PCP - General 10/01/16 Eren Cr MD Referring Physician Medical Oncology 11/25/18 Yohana Bowen MD Radiation Oncologist Radiation Oncology 11/25/18 documented as of this encounter
--- OUTSIDE RECORDS SUMMARY | 2024-06-26 02:04 | XMS_ITS | Encounter Summary ---
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) Procedures NA Referral ID Status Reason Start Date Expiration Date Visits Re quested Visits Authorized [id number] 1 1 Encounter Details Date Type Department Care Team (Latest Contact Info) Description 04/09/2022 8:30 PM CDT - 04/10/2022 4:50 PM CDT Hospital Encounter [address] [address] Michelle Abernathy MD [address] [facility] [address] [place] [address] Eren Cr MD [address] [place] [address] Proctitis (Primary Dx); Primary malignant neuroendocrine tumor [...] file Legal Sex Female 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 Gender Identity Not on file Sexual [...] Physician at Discharge: Julio César Briseno MD [phone] Admission Date: 04/09/2022 Discharge Date: 04/10/2022 Admission Location: [facility] Problems/Diagnoses: Principal Problem: Proctitis Active Problems: [...] 1 tablet by mouth early childhood education specialist before breakfast cholecalciferol 2000 unit capsule Take [...] DAILY NEEDED Commonly known as: LOTRISONE coenzyme [id number] E 100-5 mg-unit capsule Take by mouth early childhood education specialist before breakfast diphenoxylate-atropine 2.5-0.025 mg per tablet [...] dose).? Avoid Jas's Wort, grapefruit products and Upland oranges while on treatment. Commonly known as: /[id number] levothyroxine 75 mcg tablet TAKE 1 TABLET (75 MCG TOTAL) BY MOUTH FLAT SORTER PROCESSOR BEFORE BREAKFAST Commonly known as: SYNTHROID lidocaine-prilocaine [...] 0.5 tablets by mouth early childhood education specialist before breakfast decrease dosage to 0.5 tablet [...] 10:30 AM Eren Cr Jr., MD ONC OR [facility] Oncology 04/19/2022 11:30 AM POD 3 SC ONC INF SC [facility] ONC INF 04/19/2022 12:00 PM FAST TRACK RN SC ONC INF [facility] ONC INF 04/19/2022 1:30 PM PHARMACY, OR ONCOLOGY ONC INF [facility] ONC INF 05/17/2022 11:00 AM FAST TRACK LAB SC ONC LAB SC [facility] ONC LAB 05/17/2022 11:45 AM Eren Cr Jr., MD ONC OR [facility] Oncology 05/17/2022 12:45 PM PHARMACY, SC ONCOLOGY ONC INF SC [facility] ONC INF 05/18/2022 12:45 PM Po Newberry MD PhD DERM [facility] Dermatology 03/06/2023 10:00 AM Oksana Rivas NP ONC CAM 13C OB Contact Information for Follow-ups Julio César Briseno MD Specialty: Internal Medicine Relationship: PCP - General [facility] [address] Next Steps: Follow up documented in this [...] 1 tablet by mouth early childhood education specialist before breakfast 07/04/2016 4 cholecalciferol (VITAMIN [...] topically daily as needed (rash) 4 coenzyme [id number] E 100-5 mg-unit capsuleIndicatio ns:supplement Take 1 tablet by mouth early childhood education specialist before breakfast 4 diphenoxylate-at ropine (LOMOTIL) 2.5-0.025 [...] dose).?? Avoid Jas's Wort, grapefruit products and Upland oranges while on treatment. placed on hold 09/26/22 for covid 01/29/2022 4 levothyroxine (SYNTHROID) 75 mcg tabletIndication s:Hypothyroidism due to medication TAKE 1 TABLET (75 MCG TOTAL) BY MOUTH FLAT SORTER PROCESSOR BEFORE BREAKFAST 90 tablet 1 02/22/2022 2 [...] Responsibility Patient/Designated decision maker was informed of [facility] fiduciary relationship as necessary * Camila Taylor [...] Coverage: Medicare/AARP Prescription Coverage: yes Pharmacy: [facility] [address] [place] [address] Primary Care Provider: Julio César Newton MD Prior to Admission: Primary Caregiver: Self Who does the patient or legal guardian want to receive education instruction and discharge plans for after care assistance?: Decline Support System: Spouse/Significant Other, Children Support system contact info (name, phone, availablity): Alejo Chung(spouse) [phone]/Caroline Chung(daughter) [phone] Home Care Services: No Durable Medical Equipment: [...] Collaboration with patient, MD, direct care nurse, Civil Engineering Project Designer, and other members of the health care team to assure needed interventions completed. 2. Return patient to optimal level of self-care post discharge. 3. Fire Observer will follow for Discharge Planning - interventions [...] AM CDT History and Physical Division of [facility] Medicine Name: La Chung Today: April 09, [...] CHEST >5 YEARS N/A 09/14/2021 ? ? AR REMOVAL OF TONSILS,<12 Y/O Tonsillectomy - (Added by TW Conv) ??? AR TOTAL ABDOM HYSTERECTOMY Hysterectomy - (Added by TW Conv) Current Facility-Administered Medications on File Prior to Encounter Medication ??? L-arginine 1.25%/L-lysine 1.25% infusion 1,000 mL Current Outpatient Medications on File Prior to Encounter Medication Sig ??? ascorbic acid, vitamin C, 500 mg capsule Take 1 tablet by mouth early childhood education specialist before breakfast ??? cholecalciferol (VITAMIN D-3) 2,000 unit capsule Take 1 capsule (2,000 Units total) by mouth daily ??? clotrimazole-betamethasone (LOTRISONE) cream clotrimazole-betamethasone 1 %- 0.05 % topical cream APPLY EXTERNALLY TO ABDOMEN TWICE DAILY NEEDED ??? coenzyme H73-[id number] E 100-5 mg-unit capsule Take by mouth early childhood education specialist before breakfast ??? denosumab (Xgeva) 120 mg/1.7 [...] fluticasone propionate 50 mcg/actuation nasal spray,suspension ??? [facility] cabozantinib/placebo (/[id number]) 20 mg tablet Take 20 mg by mouth daily Take on an empty stomach (no food for 2 hours before and 1 hour after each dose). Avoid Skyline's Wort, grapefruit products and Upland oranges while on treatment. ??? levothyroxine (SYNTHROID) 75 mcg tablet TAKE 1 TABLET (75 MCG TOTAL) BY MOUTH FLAT SORTER PROCESSOR BEFORE BREAKFAST ??? lidocaine-prilocaine (lidocaine-prilocaine) cream Apply [...] 0.5 tablets by mouth early childhood education specialist before breakfast decrease dosage to 0.5 tablet [...] testing at this time Neuroendocrine carcinoma (CMS/HCC) ([facility]) Assessment & Plan Follows with Dr. Cr [...] continue to follow. Melissa Rios, RN, MSN, [facility] Medical Oncology [phone] Cosigned by Eren Cr Jr., MD at 04/10/2022 2:55 PM CDT Associated attestation - Eren Cr MD - 04/10/2022 2:55 PM CDT Images from the original note were not included. PUBLICITY EXPERT Attestation La Chung : 1950 DATE OF VISIT: 04/10/22 I have seen and examined the patient on 04/10/2022 with the Nurse Practitioner and I have reviewed the PUBLICITY EXPERT note and agree with the findings documented [...] with theplan of care. 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 Colostomy complication, unspecified ([facility]) 04/14/2020 ??? Abdominal pain 01/13/2020 ??? Benign [...] Epithelial hyperplasia 07/22/2019 ??? Colostomy in place ([facility]) ([facility]) 05/14/2019 ??? Acute blood loss anemia 04/17/2019 [...] CHEST >5 YEARS N/A 09/14/2021 ? ? AR REMOVAL OF TONSILS,<12 Y/O Tonsillectomy - (Added by [employer] Conv) ??? AR TOTAL ABDOM HYSTERECTOMY Hysterectomy - (Added by [employer] Conv) Family History Problem Relation Age of Onset ??? Breast cancer Sister 61 Adenocarcinoma of breast - (Added by [employer] Conv) ??? Suicidality Father Family history of suicide - (Added by [employer] Conv) ??? Other (old age) Mother ??? Melanoma Daughter 30 Social History Tobacco Use ??? Smoking status: Never ??? Smokeless tobacco: Never Substance and Sexual Activity ??? Drug use: No ??? Sexual activity: Defer Alcohol Use: Not on file Social History Social History Narrative : (Added by [employer] Conv) Retired : (Added by [employer]) Occasional alcohol use : (Added by [employer]) Review of Systems Review of Systems Constitutional: [...] with voice recognition software. Occasional wrong-word or '[id number]-b-[id number]' substitutions may have occurred due to the [...] MD Time: 04/09 2337 Comment: Spoke with GLEASON OPERATOR ONC and informed them their pateint is [...] Time: 04/10 910 Comment: Patient transferred to [facility] for further care. By: Mj Abdul MD PhD Rectal pain 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) Adonay Bethea MD Resident 04/10/2214 Adonay Bethea MD Resident 04/11/22 [id number] Cosigned by Michelle Abernathy MD at 04/11/2022 [...] 3:54 PM CDT Accept Note Division of [facility] Medicine Name: La Chung Today: April 10, [...] MD Time: 04/09 2337 Comment: Spoke with GLEASON OPERATOR ONC and informed them their pateint is [...] Time: 04/10 910 Comment: Patient transferred to [facility] for further care. By: Mj Abdul MD [...] PORT PLACEMENT CHEST >5 YEARS N/A 09/14/2021 AR REMOVAL OF TONSILS,<12 Y/O Tonsillectomy - (Added by TW Conv) AR TOTAL ABDOM HYSTERECTOMY Hysterectomy - (Added by TW Conv) Current Facility-Administered Medications on File Prior to Encounter Medication L-arginine 1.25%/L-lysine 1.25% infusion 1,000 mL Current Outpatient Medications on File Prior to Encounter Medication Sig ascorbic acid, vitamin C, 500 mg capsule Take 1 tablet by mouth early childhood education specialist before breakfast cholecalciferol (VITAMIN D-3) 2,000 unit capsule Take 1 capsule (2,000 Units total) by mouth daily clotrimazole-betamethasone (LOTRISONE) cream clotrimazole-betamethasone 1 %-0.05 % topical cream APPLY EXTERNALLY TO ABDOMEN TWICE DAILY NEEDED coenzyme T30-rfkingx E 100-5 mg-unit capsule Take by mouth early childhood education specialist before breakfast denosumab (Xgeva) 120 mg/1.7 mL (70 mg/mL) injection Xgeva diphenoxylate-atropine (LOMOTIL) 2.5-0.025 mg per tablet Take 1 tablet by mouth 4 (four) times a day as needed for diarrhea DULoxetine DR (CYMBALTA) 30 mg capsule Take 1 capsule (30 mg total) by mouth daily fluticasone propionate (FLONASE) 50 mcg/actuation nasal spray fluticasone propionate 50 mcg/actuation nasal spray,suspension [id number] cabozantinib/placebo (/[id number]) 20 mg tablet Take 20 mg by mouth daily Takeon an empty stomach (no food for 2 hours before and 1 hour after each dose). Avoid Skyline's Wort,grapefruit products and Upland oranges while on treatment. levothyroxine (SYNTHROID) 75 mcg tablet TAKE 1 TABLET (75 MCG TOTAL) BY MOUTH FLAT SORTER PROCESSOR BEFORE BREAKFAST lidocaine-prilocaine (lidocaine-prilocaine) cream Apply topically [...] 0.5 tablets by mouth early childhood education specialist before breakfast decrease dosage to 0.5 tablet [...] WBC, ur 21-50(A) 0 - 5 /HPF [facility] RBC, ur 3-5(A) 0 - 2 /HPF [facility] Epithelial cells, squamous, ur 1-5 0 - 5 /HPF [facility] Mucous, ur Present(A) [facility] Urine 04/09/2022 11:2 9 PM CDT 04/09/2022 11:35 PM CDT us Oswaldo Howard MD LAB URINE ORDERABLES Fi nal Result [facility] One [facility] Department [place] [address] * (ABNORMAL) Urinalysis reflex to microscopic (04/09/2022 11:29 PM CDT) Color, ur Straw Yellow [facility] Clarity, ur Clear Clear [facility] Specific gravity, ur >1.042(H) 1.003 - 1.030 [facility] pH, urine 6.5 [facility] Protein, ur ql 1+(A) Negative [facility] Glucose, ur ql Negative Negative [facility] Ketones, ur Negative Negative [facility] Bilirubin, ur Negative Negative [facility] Blood, ur Trace(A) Negative [facility] Urobilinogen, ur <2.0 <2.0 mg/dL [facility] Nitrite, ur Negative Negative [facility] Leukocyte esterase, ur 1+(A) Negative [facility] UA reflex comment Reflex to microscopic UA will be performed. [facility] Urine 04/09/2022 11:2 9 PM CDT 04/09/2022 11:35 PM CDT Narrative [facility] - 04/09/2022 11:56 PM CDT ?? Urine pH is affected by diet, medications, systemic acid-base disturbances, and renal tubular function. ??pH may affect urinary stone formation. ??For example, urine pH below 6.0 may help reduce the tendency for calcium phosphate stones and pH greater than 6.0 may reduce the tendency for uric acid stone formation. Source: [employer]. Last revised 07-18-2017 us Oswaldo Howard MD LAB URINE ORDERABLES Fi nal Result [facility] Department [place] [address] * COVID-19 Coronavirus RNA Nasopharyngeal (04/09/2022 10:17 PM CDT) COVID-19 RNA Negative Negative [facility] Nasopharyngeal 04/09/2022 10 :17 PM CDT 04/09/2022 10:26 PM CDT Narrative [facility] - 04/09/2022 11:01 PM CDT Is the patient experiencing any symptoms consistent with COVID (eg. Fever, cough, shortness of breath)?->No What is the reason for testing?->Bed placement or semi-private room (Rapid) ??Interpretive data: Synonyms for this test include: PCR and NAAT . ??This test is performed using the Ultimate Shopper Xpert Xpress plus assay. This is a [...] . ??This test is performed using the Ultimate Shopper Xpert Xpress plus assay. This is a [...] GENERAL ORDERABLES Final Result Performing Organization Address City/State/[facility] Co de Phone Number [facility] [place] [address] * CT Abdomen Pelvis W Contrast (04/09/2022 [...] POCT creatinine (04/09/2022 8:28 PM CDT) Pathologist [facility] Creatinine POC 1.3(H) 0.6 - 1.1 mg/dL [facility] Blood 04/09/2022 8:28 PM CDT 04/09/2022 8:28 PM CDT Notinfile Unknown LAB POCT ORDERABLES - DEVICE F inal Result Performing Organization Address City/[facility]/ZIP Co de Phone Number [facility] Department [place] [address] * Bilirubin, direct (04/09/2022 8:21 PM CDT) [facility] Bilirubin, direct 0.2 0.1 - 0.3 mg/dL [facility] Blood 04/09/2022 8:21 PM CDT 04/09/2022 8:32 PM CDT Eren Cr MD LAB BLOOD ORDERABLES Final Re sult Performing Organization Address City/[facility]/ZIP Co de Phone Number [facility] Department [place] [address] * (ABNORMAL) eGFR (04/09/2022 8:21 PM CDT) [facility] eGFR 51(L) 90 - 130 mL/min/1. 73 m2 [facility] Comment: Interpretive Data Reference Interval Normal [...] MD LAB BLOOD ORDERABLES Fi nal Result [facility] Department [place] [address] * (ABNORMAL) Differential, auto (04/09/2022 8:21 PM CDT) Neutrophil abs 3.9 1.7 - 6.5 K/cumm [facility] Imm gran abs 0.0 0.0 - 0.1 K/cumm [facility] Lymphocyte abs 0.5(L) 0.8 - 3.3 K/cumm [facility] Monocyte abs 0.6 0.2 - 0.8 K/cumm [facility] Eosinophil abs 0.0 0.0 - 0.5 K/cumm [facility] Basophil abs 0.0 0.0 - 0.1 K/cumm [facility] Neutrophil pct 76.6 % [facility] Comment: Interpretive Data Percent cell count reference ranges are not reported, since discordance with absolute values may lead to misinterpretation of CBC data. Current Interpretive Data was last revised on 2017. Imm gran pct 0.2 % [facility] Comment: Interpretive Data Percent cell count reference ranges are not reported, since discordance with absolute values may lead to misinterpretation of CBC data. Current Interpretive Data was last revised on 2017. Lymphocyte pct 10.5 % [facility] Comment: Interpretive Data Percent cell count reference ranges are not reported, since discordance with absolute values may lead to misinterpretation of CBC data. Current Interpretive Data was last revised on 2017. Monocyte pct 11.7 % [facility] Comment: Interpretive Data Percent cell count reference ranges are not reported, since discordance with absolute values may lead to misinterpretation of CBC data. Current Interpretive Data was last revised on 2017. Eosinophil pct 0.6 % [facility] Comment: Interpretive Data Percent cell count reference ranges are not reported, since discordance with absolute values may lead to misinterpretation of CBC data. Current Interpretive Data was last revised on 2017. Basophil pct 0.4 % [facility] Comment: Interpretive Data Percent cell count reference ranges are not reported, since discordance with absolute values may lead to misinterpretation of CBC data. Current Interpretive Data was last revised on 2017. Blood 04/09/2022 8:21 PM CDT 04/09/2022 8:32 PM CDT us Oswaldo Howard MD LAB BLOOD ORDERABLES Fi nal Result [facility] Department [place] [address] * (ABNORMAL) Comprehensive metabolic panel (04/09/2022 8:21 PM CDT) Sodium 137 135 - 145 mmol/L [facility] Potassium, pl 3.9 3.3 - 4.9 mmol/L [facility] Comment:Hemolyzed; Potassium value may be falsely elevated by as much as 0.3-0.5 mmol/L. Suggest redraw and reanalysis. Chloride 101 97 - 110 mmol/L [facility] CO2 24 22 - 32 mmol/L [facility] Anion gap 12 2 - 15 mmol/L [facility] BUN 13 8 - 25 mg/dL [facility] Creatinine 1.13(H) 0.60 - 1.10 mg/dL [facility] Glucose 129 70 - 199 mg/dL [facility] [...] 2017. Calcium 9.9 8.5 - 10.3 mg/dL [facility] Bilirubin, total 1.4(H) 0.1 - 1.2 mg/dL [facility] Protein, pl 6.6 6.5 - 8.5 g/dL [facility] Albumin 4.1 3.5 - 5.0 g/dL [facility] Alk phos 73 40 - 130 Units/L [facility] ALT 25 7 - 45 Units/L [facility] AST 40 10 - 45 Units/L [facility] Comment:Hemolyzed; result ma y be falsely elevated Blood 04/09/2022 8:21 PM CDT 04/09/2022 8:32 PM CDT us Oswaldo Howard MD LAB BLOOD ORDERABLES Fi nal Result [facility] Department [place] [address] * (ABNORMAL) CBC with auto differential (04/09/2022 8:21 PM CDT) WBC 5.1 3.8 - 9.9 K/cumm [facility] Hgb 12.2 11.9 - 15.5 g/dL [facility] Hct 35.7 35.6 - 45.5 % [facility] Plt 113(L) 150 - 400 K/cumm [facility] MPV 10.2 9.1 - 12.3 fL [facility] RBC 3.65(L) 3.90 - 5.20 M/cumm [facility] MCV 97.8(H) 81.3 - 96.4 fL [facility] MCH 33.4(H) 27.1 - 33.3 pg [facility] MCHC 34.2 32.3 - 35.7 g/dL [facility] RDW CV 13.6 11.1 - 14.9 % [facility] RDW SD 49.1(H) 35.7 - 48.1 fL [facility] NRBC abs 0.00 0.00 - 0.01 K/cumm [facility] Blood 04/09/2022 8:21 PM CDT 04/09/2022 8:32 PM CDT us Oswaldo Howard MD LAB BLOOD ORDERABLES Fi nal Result [facility] Department [place] [address] documented in this encounter Visit Diagnoses Diagnosis [...] 04/10/2022 documented in this encounter Care Teams Wafer Fabricator Relationship Specialty Start Date End Date Julio César Briseno MD PCP - General 10/01/16 Eren Cr MD Referring Physician Medical Oncology 11/25/18 Yohana Bowen MD Radiation Oncologist Radiation Oncology 11/25/18 documented as of this encounter
--- OUTSIDE RECORDS SUMMARY | 2024-06-26 02:04 | XMS_ITS | Encounter Summary ---
Author Organization [facility] Address [address] [place] [address] Phone Care Team Providers Care Integration Software Engineer Name Role Phone Julio César Briseno MD Primary Care Provider [phone] Eren Cr MD Unavailable [phone] Yohana Bowen MD Unavailable Reason for Visit * Episode Based Medications (Routine) - Authorized Specialty Diagnoses / Procedures Referred By Contellen t Referred To Contact Diagnoses Hypomagnesemia Eren Cr MD [address] [facility] [address] [place] [address] Phone: tel: fax: [facility] [address] [facility] Advanced Medicine 7th [place] [address] Phone: tel: Referral ID Status Reason Start Date Expiration Date V isits Requested Visits Authorized [id number] Authorized 11/13/2021 04/01/2025 1 30 Encounter Details Date Type Department Care Team (Late st Contact Info) Description 04/12/2022 1:30 PM CDT Infusion [facility] On[facility] [address] [place] [address] 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
--- OUTSIDE RECORDS SUMMARY | 2024-06-26 02:04 | XMS_ITS | Encounter Summary ---
Author Organization [facility] Address [address] [place] [address] Phone Care Team Providers Care Hospital Chief Executive Officer Name Role Phone Julio César Briseno MD Primary Care Provider [phone] Eren Cr MD Unavailable [phone] Yohana Bowen MD Unavailable Reason for Visit * Reason Comments OP Infusion Encounter Details Date Type Department Care Team (Late st Contact Info) Description 03/29/2022 1:30 PM CDT Infusion [facility] Oncology [address] [place] [address] Malignant neoplasm metastatic to liver (CMS/HCC) (HCC) [...] on file Legal Sex Female 2:41 PM LINER CHECKER Gender Identity Not on file Sexual [...] 03/29/2022 1:30 PM CDT Oncology Nursing Note [facility] La Chung is a 71 [...] 03/29/2022 documented in this encounter Care Teams Hospital Chief Executive Officer Relationship Specialty Start Date End Date Julio César Briseno MD PCP - General 10/01/16 Eren Cr MD Referring Physician Medical Oncology 11/25/18 Yohana Bowen MD Radiation Oncologist Radiation Oncology 11/25/18 documented as of this encounter
--- OUTSIDE RECORDS SUMMARY | 2024-06-26 02:04 | XMS_ITS | Encounter Summary ---
Author Organization [facility] Address [address] [place] [address] Phone Care Team Providers Care Addressing Machine Operator Name Role Phone Julio César Briseno MD Primary Care Provider [phone] Eren Cr MD Unavailable [phone] Yohana Bowen MD Unavailable Reason for Visit * Episode Based Medications (Routine) - Authorized Specialty Diagnoses / Procedures Referred By Evelyne t Referred To Contact Oncology Diagnoses Neuroendocrine carcinoma (HCC) Malignant neoplasm metastatic to liver (HCC) Procedures [place] OCTREOTIDE INJECTION, DEPOT Octreotide 28 Day Cycles - Carcinoid Eren Cr MD [address] [facility] [address] [place] [address] Phone: tel: fax: [facility] [address] [address] Phone: tel: fax: Referral ID Status Reason Start Date Expiration Date V isits Requested Visits Authorized [id number] Authorized 11/28/2017 02/05/2025 1 150 Encounter Details Date Type Department Care Team (Late st Contact Info) Description 03/22/2022 11:00 AM CDT Infusion [facility] Oncology [address] [place] [address], [place] [address] Neuroendocrine carcinoma (CMS/HCC) (HCC); Malignant neoplasm metastatic [...] file Legal Sex Female 2:41 PM SERVICE COORDINATOR [facility] Gender Identity Not on file Sexual Orientation [...] 03/08 documented in this encounter Care Teams Addressing Machine Operator Relationship Specialty Start Date End Date Julio César Briseno MD PCP - General 10/01/16 Eren Cr MD Referring Physician Medical Oncology 11/25/18 Yohana Bowen MD Radiation Oncologist Radiation Oncology 11/25/18 documented as of this encounter
--- OUTSIDE RECORDS SUMMARY | 2024-06-26 02:04 | XMS_ITS | Encounter Summary ---
Author Organization [facility] Address [address] [place] [address] Phone Care Team Providers Care Semiconductor Package Symbol Stamper Name Role Phone Julio César Briseno MD Primary Care Provider Eren Cr MD Unavailable [phone] Yhoana Bowen MD Unavailable Encounter Details Date Type Department Care Team (Late st Contact Info) Description 03/29/2022 Orders Only [facility] Oncology [address] [place] [address] Eren Cr MD [address] [place], [place] [id number] Social History Tobacco Use Types Packs/Day Years [...] on file Legal Sex Female 2:41 PM PSYCHOLOGICAL AIDE Gender Identity Not on file Sexual Orientation Straight 02/19/2021 9: 29 AM CDT Occupation Industry Job Start Date Job End Date retired Not on file Not on file Not on file documented as of this encounter Plan of Treatment Not on file documented as of this encounter Visit Diagnoses Not on filedocumented in this encounter Care Teams Semiconductor Package Symbol Stamper Relationship Specialty Start Date End Date Julio César Briseno MD PCP - General 10/01/16 Eren Cr MD Referring Physician Medical Oncology 11/25/18 Yohana Bowen MD Radiation Oncologist Radiation Oncology 11/25/18 documented as of this encounter
--- OUTSIDE RECORDS SUMMARY | 2024-06-26 02:04 | XMS_ITS | Encounter Summary ---
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
--- OUTSIDE RECORDS SUMMARY | 2024-06-26 02:04 | XMS_ITS | Encounter Summary ---
Author Organization [facility] Address [address] [place] [address] Phone Care Team Providers Care Course Instructor Name Role Phone Julio César Briseno MD Primary Care Provider [phone] Eren Cr MD Unavailable [phone] Yohana Bowen MD Unavailable Encounter Details Date Type Department Care Team (Late st Contact Info) Description 03/22/2022 Orders Only [facility] Oncology [address] [place] [address] Eren Cr MD [address] [place], [place] [id number] Social History Tobacco Use Types Packs/Day Years [...] file 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
--- OUTSIDE RECORDS SUMMARY | 2024-06-26 02:04 | XMS_ITS | Encounter Summary ---
Author Organization 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 Eren Cr MD [address] [facility] [address] [place] [address] Phone: tel: fax: [facility] [address] [facility] Advanced Medicine 7th [place] [address] Phone: tel: Referral ID Status Reason Start Date Expiration Date Visits Re quested Visits Authorized [id number] Closed 06/21/2021 06/26/2024 1 99 Encounter Details Date Type Department Care Team (Latest Contact Info) Description 03/22/2022 11:15 AM CDT Research Med Pick-Up/CTRU Lamination Inspector [facility] Oncology [address] [place] [address], [place] [address] Neuro-endocrine carcinoma (CMS/HCC) (HCC) (Primary Dx) Social [...] on file 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 Gender Identity Not on file Sexual [...] Date First Ordered Date INV-[id number] cabozantinib/pl acebo (08-122/[id number]) tablet 20 mg 1 03/22/2022 Nursing Count Last Ordered Date First Orde red Date ONCBCN STUDY COMMUNICATION 2 1 03/22/2022 ONCBCN TREATMENT PARAMETERS 1 1 03/22/2022 RESEARCH STUDY CLARIFICATION ORDER 1 2021 Appointment Requests Count Last Ordered Date Fi rst Ordered Date ONCBCN TAKE HOME STUDY DRUG APPT 1 03/22/20 22 documented in this encounter Care Teams Ingredient Handler Relationship Specialty Start Date End Date Julio César Briseno MD PCP - General 10/01/16 Eren Cr MD Referring Physician Medical Oncology 11/25/18 Yohana Bowen MD Radiation Oncologist Radiation Oncology 11/25/18 documented as of this encounter
--- OUTSIDE RECORDS SUMMARY | 2024-06-26 02:04 | XMS_ITS | Encounter Summary ---
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 Gender Identity Not on file Sexual Orientation Straight 02/19/2021 9: 29 AM CDT Occupation Industry Job Start Date Job End Date retired Not on file Not on file Not on file documented as of this encounter Plan of Treatment Not on file documented as of this encounter Visit Diagnoses Not on filedocumented in this encounter Care Teams Java Developer Consultant Relationship Specialty Start Date End Date Julio César Briseno MD PCP - General 10/01/16 Eren Cr MD Referring Physician Medical Oncology 11/25/18 Yohana Bowen MD Radiation Oncologist Radiation Oncology 11/25/18 documented as of this encounter
--- OUTSIDE RECORDS SUMMARY | 2024-06-26 02:04 | XMS_ITS | Encounter Summary ---
Author Organization [facility] Address [address] [place] [address] Phone Care Team Providers Care Grants And Contracts Assistant Name Role Phone Julio César Briseno MD Primary Care Provider Eren Cr MD Unavailable [phone] Yohana Bowen MD Unavailable Encounter Details Date Type Department Care Team (Late st Contact Info) Description 04/09/2022 Telephone [facility] Obstetrics and Gynecology [address] [facility] Advanced Medicine 13th [place] [address] [place] [address] Oksana Rivas, COMBINATION BUILDING INSPECTOR [address] [address] Social History Tobacco Use Types [...] on file 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
--- OUTSIDE RECORDS SUMMARY | 2024-06-26 02:04 | XMS_ITS | Encounter Summary ---
Author Organization [facility] Address [address] [place] [address] Phone Care Team Providers Care Education Officer Name Role Phone Julio César Briseno MD Primary Care Provider Eren Cr MD Unavailable [phone] Yohana Bowen MD Unavailable Encounter Details Date Type Department Care Team (Late st Contact Info) Description 03/23/[address] 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
--- OUTSIDE RECORDS SUMMARY | 2024-06-26 02:04 | XMS_ITS | Encounter Summary ---
Author Organization [facility] Address [address] [place] [address] Phone Care Team Providers Care Hotel And Dining Room Cashier Name Role Phone Julio César Briseno MD Primary Care Provider [phone] Eren Cr MD Unavailable [phone] Yohana Bowen MD Unavailable Reason for Visit * Episode Based Medications (Routine) - Authorized Specialty Diagnoses / Procedures Referred By Evelyne t Referred To Contact Oncology Diagnoses Neuroendocrine carcinoma (HCC) Malignant neoplasm metastatic to liver (HCC) Procedures [place] OCTREOTIDE INJECTION, DEPOT Octreotide 28 Day Cycles - Carcinoid Eren Cr MD [address] [place] [address] Phone: tel: fax: [address] [address] Phone: tel: fax: Referral ID Status Reason Start Date Expiration Date V isits Requested Visits Authorized [id number] Authorized 11/28/2017 02/05/2025 1 150 Encounter Details Date Type Department Care Team (Latest Contact Info) Description 03/22/2022 9:30 AM CDT Clinical Support [facility] Oncology [address] [place] [address], [place] [address] Neuro-endocrine carcinoma (CMS/HCC) (HCC); Neuroendocrine carcinoma (CMS/HCC) [...] on file 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
--- OUTSIDE RECORDS SUMMARY | 2024-06-26 02:04 | XMS_ITS | Encounter Summary ---
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
--- OUTSIDE RECORDS SUMMARY | 2024-06-26 02:04 | XMS_ITS | Encounter Summary ---
Author Organization [facility] Address [address] [place] [address] Care Team Providers Care Tree Pruner Name Role Phone Julio César Briseno MD Primary Care Provider [phone] Eren Cr MD Unavailable [phone] Yohana Bowen MD Unavailable Reason for Referral * Diagnostic Imaging (Routine) - Closed Specialty Diagnoses / Procedures Referred By Contac t Referred To Contact Diagnoses Screening mammogram, encounter for Procedures Screening Mammogram Bilateral W Seng Screening Mammogram, Self [facility] Medicine Referral ID Status Reason Start Date Expiration Date Visits Re quested Visits Authorized [id number] Closed 03/02/2022 04/01/2023 1 1 * Diagnostic Imaging (Routine) - Closed Specialty Diagnoses / Procedures Referred By Contac t Referred To Contact Diagnoses Screening mammogram, encounter for Procedures Screening Mammogram Bilateral W Seng Screening Mammogram, Self [facility] Referral ID Status Reason Start Date Expiration Date Visits Re quested Visits Authorized [id number] Closed 03/02/2022 04/01/2023 1 1 Reason for Visit * Diagnostic Imaging (Routine) - Closed Specialty Diagnoses / Procedures Referred By Contac t Referred To Contact Diagnoses Screening mammogram, encounter for Procedures Screening Mammogram Bilateral W Seng Screening Mammogram, Self [facility] Referral ID Status Reason Start Date Expiration Date Visits Re quested Visits Authorized [id number] Closed 03/02/2022 04/01/2023 1 1 Encounter Details Date Type Department Care Team (Latest Contact Info) Description 04/02/2022 8:31 AM CDT - 04/02/2022 11:59 PM CDT Hospital Encounter [facility] Advanced Medicine Breast Imaging [facility] ([facility]) [address] [place] [address] Screening mammogram, encounter for Discharge Disposition: Discharge [...] file 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 Gender Identity Not on file Sexual Orientation [...] capsuleIndications :supplement Take 1 tablet by mouth music therapist before breakfast 07/04/2016 4 cholecalciferol (VITAMIN D-3) 2,000 unit capsule Take 1 capsule (2,000 Units total) by mouth daily 30 capsule 2 04/25/2019 3 cholestyramine (QUESTRAN) 4 gram packet Take 1 packet by mouth 3 (three) times a day with meals 270 packet 3 09/04/2019 2 clotrimazole-betam ethasone (LOTRISONE) cream Apply 1 Application topically daily as needed (rash) 4 coenzyme [id number]-[id number] E 100-5 mg-unit capsuleIndications :supplement Take 1 tablet by mouth music therapist before breakfast 4 diphenoxylate-atro pine (LOMOTIL) 2.5-0.025 [...] dose).?? Avoid Jas's Wort, grapefruit products and [place] oranges while on treatment. placed on hold 09/26/22 for covid 01/29/2022 4 levothyroxine (SYNTHROID) 75 mcg tabletIndications: Hypothyroidism due to medication TAKE 1 TABLET (75 MCG TOTAL) BY MOUTH WASH TANK TENDER BEFORE BREAKFAST 90 tablet 1 02/22/2022 2 [...] compared to prior imaging studies performed at [facility] on 01/27/2018, 12/21/2019 and 01/23/2021. There are [...] compared to prior imaging studies performed at [facility] on 01/27/2018, 12/21/2019 and 01/23/2021. There are [...] for documented in this encounter Care Teams Tree Pruner Relationship Specialty Start Date End Date Julio César Briseno MD PCP - General 10/01/16 Eren Cr MD Referring Physician Medical Oncology 11/25/18 Yohana Bowen MD Radiation Oncologist Radiation Oncology 11/25/18 documented as of this encounter
--- OUTSIDE RECORDS SUMMARY | 2024-06-26 02:04 | XMS_ITS | Encounter Summary ---
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) Procedures [place] DENOSUMAB INJECTION DENOSUMAB (XGEVA) Eren Cr MD [address] [place] [address] Phone: tel: fax: [facility] [address] [facility] Advanced Medicine 7th [place] [address] Phone: tel: Referral ID Status Reason Start Date Expiration Date V isits Requested Visits Authorized [id number] Authorized 03/02/2019 10/06/2024 1 60 Encounter Details Date Type Department Care Team (Late st Contact Info) Description 03/22/2022 11:30 AM CDT Infusion [facility] Oncology [address] [place] [address] Neuroendocrine carcinoma (CMS/HCC) (HCC) (Primary Dx); Dehydration; [...] on file 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 Gender Identity Not on file Sexual Orientation Straight 02/19/2021 9: 29 AM CDT Occupation Industry Job Start Date Job End Date retired Not on file Not on file Not on file documented as of this encounter Nursing Notes * Deyanira Mark, RN - 03/22/2022 11:30 AM CDT Oncology Nursing Note [facility] [...] First Orde red Date ONCBCN NURSING COMMUNICATION [id number] 1 03/22 Appointment Requests Count Last Ordered Date Fi rst Ordered Date ONCBCN INFUSION APPT REQUEST 1 03/22/2022 documented in this encounter Care Teams Visual Merchandise Manager Relationship Specialty Start Date End Date Julio César Briseno MD PCP - General 10/01/16 Eren Cr MD Referring Physician Medical Oncology 11/25/18 Yohana Bowen MD Radiation Oncologist Radiation Oncology 11/25/18 documented as of this encounter
--- OUTSIDE RECORDS SUMMARY | 2024-06-26 02:04 | XMS_ITS | Encounter Summary ---
Author Organization [facility] Address [address] [place] [address] Phone Care Team Providers Care Economic Geographer Name Role Phone Julio César Briseno MD Primary Care Provider [phone] Eren Cr MD Unavailable [phone] Yohana Bowen MD Unavailable Encounter Details Date Type Department Care Team (Late st Contact Info) Description 03/22/2022 Orders Only [facility] Oncology [address] [place] [address] Eren Cr MD [address] [place] [address] Neuro-endocrine carcinoma (CMS/HCC) (HCC) (Primary [...] on file Legal Sex Female 2:41 PM PROCESSING ASSISTANT Gender Identity Not on file Sexual Orientation Straight 02/19/2021 9: 29 AM CDT Occupation Industry Job Start Date Job End Date retired Not on file Not on file Not on file documented as of this encounter Plan of Treatment Not on file documented as of this encounter Results * Protein / creatinine ratio, urine, random (05/17/2022 12:16 PM PROCESSING ASSISTANT) Protein, ur, quant 10.6 mg/dL [facility] Comment: Interpretive Data No reference range established. Current interpretive data was last revised 2018. Creatinine Ur 140.9 mg/dL [facility] Comment: Interpretive Data No reference range established. Current interpretive data was last revised 2018. Protein/creatinin e ratio 75.2 0.0 - 180.0 mg/g CR [facility] Urine 05/17/2022 12:1 6 PM PROCESSING ASSISTANT 05/17/2022 1:51 PM PROCESSING ASSISTANT Eren Cr MD LAB URINE ORDERABLES Final Re sult Performing Organization Address [facility]/ZIP Co de Phone Number [facility] [place], [place] [id number] * Magnesium (05/17/2022 11:34 AM PROCESSING ASSISTANT) Magnesium 1.6 1.4 - 2.5 mg/dL [facility] Comment:Testing performed by : [facility], [address] [place] [address] Blood 05/17/2022 11:3 4 AM PROCESSING ASSISTANT 05/17/2022 11:36 AM PROCESSING ASSISTANT Eren Cr MD LAB BLOOD ORDERABLES Final Re sult [facility] Department [place] [address] * Comprehensive metabolic panel (05/17/2022 11:34 AM PROCESSING ASSISTANT) Sodium 139 135 - 145 mmol/L [facility] Comment:Testing performed by : [facility], [address] [place] [address] Potassium, pl 4.0 3.3 - 4.9 mmol/L [facility] Chloride 107 97 - 110 mmol/L [facility] CO2 26 22 - 32 mmol/L [facility] Anion gap 6 2 - 15 mmol/L [facility] BUN 13 8 - 25 mg/dL [facility] Creatinine 1.10 0.60 - 1.10 mg/dL [facility] Glucose 106 70 - 199 mg/dL [facility] Comment: Interpretive Data Fasting glucose [...] Calcium 9.9 8.5 - 10.3 mg/dL [facility] Bilirubin, total 0.5 0.1 - 1.2 mg/dL [facility] Protein, pl 6.6 6.5 - 8.5 g/dL [facility] Albumin 4.2 3.5 - 5.0 g/dL [facility] Alk phos 60 40 - 130 Units/L [facility] ALT 27 7 - 45 Units/L [facility] AST 35 10 - 45 Units/L [facility] Blood 05/17/2022 11:3 4 AM PROCESSING ASSISTANT 05/17/2022 11:36 AM PROCESSING ASSISTANT us Eren Cr MD LAB BLOOD ORDERABLES Final Re sult [facility] One [facility] Department [place] [address] * (ABNORMAL) CBC with auto differential (05/17/2022 11:34 AM PROCESSING ASSISTANT) WBC 3.6(L) 3.8 - 9.9 K/cumm [facility] Comment:Testing performed by : [facility], [address] [place] [address] Hgb 11.5(L) 11.9 - 15.5 g/dL [facility] Comment:Testing performed by : [facility], [address] [place] [address] Hct 34.6(L) 35.6 - 45.5 % [facility] Comment:Testing performed by : [address] [address] Plt 97(L) 150 - 400 K/cumm [facility] Comment:Testing performed by : [address] [address] MPV 11.0 9.1 - 12.3 fL [facility] RBC 3.44(L) 3.90 - 5.20 M/cumm [facility] MCV 100.6(H) 81.3 - 96.4 fL [facility] MCH 33.4(H) 27.1 - 33.3 pg [facility] MCHC 33.2 32.3 - 35.7 g/dL [facility] RDW CV 14.1 11.1 - 14.9 % [facility] RDW SD 51.1(H) 35.7 - 48.1 fL [facility] NRBC abs 0.00 0.00 - 0.01 K/cumm [facility] Blood 05/17/2022 11:3 4 AM PROCESSING ASSISTANT 05/17/2022 11:36 AM PROCESSING ASSISTANT Eren Cr MD LAB BLOOD ORDERABLES Final Re sult [facility] One [facility] [place] [address] * (ABNORMAL) Chromogranin A (04/19/2022 10:00 AM CDT) Chromogranin A 1141(H) <93 ng/mL [facility] Comment: Impaired renal or hepatic function or treatment with proton pump inhibitors may result in artifactual elevations of Chromogranin A. ADDITIONAL INFORMATION This test was developed and its performance characteristics determined by [facility] in a manner consistent with CLIA requirements. [...] a homogeneous time-resolved immunofluorescent assay manufactured by [employer] and performed on the 2 Minutes Kryptor Compact Plus. ? Values obtained with different assay methods or kits may be different and cannot be used interchangeably. ? Test results cannot be interpreted as absolute evidence for the presence or absence of malignant disease. Test Performed by: [place] [address] Boat Outboard Engine Mechanic: Immanuel Novak M.D. Ph.D.; CLIA# [id number] Blood 04/19/2022 10:0 0 AM CDT 04/19/2022 11:51 AM CDT us Eren Cr MD LAB BLOOD ORDERABLES Final Re sult [facility] One [facility] [place] [address] * (ABNORMAL) Vitamin D 25 hydroxy (04/19/2022 10:00 AM CDT) Vitamin D 25-OH 23(L) 30 - 80 ng/mL [facility] Blood 04/19/2022 10:0 0 AM CDT 04/19/2022 11:43 AM CDT Eren Cr MD LAB BLOOD ORDERABLES Final Re sult Performing Organization Address [facility] Co de Phone Number [facility] Department [place] [address] * Phosphorus (04/19/2022 10:00 AM CDT) Phosphorus, pl 2.8 2.3 - 4.5 mg/dL [facility] Comment:Testing performed by : [address] [address] Blood 04/19/2022 10:0 0 AM CDT 04/19/2022 10:03 AM CDT Eren Cr MD LAB BLOOD ORDERABLES Final Re sult Performing Organization Address [facility] de Phone Number [facility] [place] [address] * (ABNORMAL) Lipid panel (04/19/2022 10:00 AM CDT) Cholesterol 121 30 - 199 mg/dL [facility] Comment: Interpretive Data Ages < [...] revised on 2018. Triglycerides 185(H) <=149 mg/dL [facility] Comment: Interpretive Data Ages < [...] revised on 2018. HDL 56 >=40 mg/dL [facility] Comment: Interpretive Data Ages < [...] on 2018. LDL, calculated 28 <=129 mg/dL [facility] Comment: Interpretive Data Ages < [...] on 2018. Non-HDL Cholesterol 65 mg/dL [facility] Comment: [...] 2 [facility] Blood 04/19/2022 10:0 0 AM CDT 04/19/2022 11:43 AM CDT us Eren Cr MD LAB BLOOD ORDERABLES Final Re sult [facility] One [facility] [place] [address] * (ABNORMAL) TSH (04/19/2022 10:00 AM CDT) Thyroid Stimulating Hormone 7.34(H) 0.30 - 4.20 mcIUnit/mL [facility] Blood 04/19/2022 10:0 0 AM CDT 04/19/2022 11:43 AM CDT Eren Cr MD LAB BLOOD ORDERABLES Final Re sult Performing Organization Address [facility] Co de Phone Number [facility] [place] [address] * Magnesium (04/19/2022 10:00 AM CDT) Pathologist [facility] Magnesium 1.6 1.4 - 2.5 mg/dL [facility] Comment:Testing performed by : [address] [address] Blood 04/19/2022 10:0 0 AM CDT 04/19/2022 10:03 AM CDT Eren Cr MD LAB BLOOD ORDERABLES Final Re sult Performing Organization Address [facility] de Phone Number [facility] [place] [address] * (ABNORMAL) Comprehensive metabolic panel (04/19/2022 10:00 AM CDT) [facility] Sodium 140 135 - 145 mmol/L [facility] Comment:Testing performed by : [address] [address] Potassium, pl 3.8 3.3 - 4.9 mmol/L [facility] Chloride 108 97 - 110 mmol/L [facility] CO2 26 22 - 32 mmol/L [facility] Anion gap 6 2 - 15 mmol/L [facility] BUN 15 8 - 25 mg/dL [facility] Creatinine 1.22(H) 0.60 - 1.10 mg/dL [facility] Glucose 116 70 - 199 mg/dL [facility] Comment: Interpretive Data Fasting glucose [...] 2017. Calcium 10.6(H) 8.5 - 10.3 mg/dL [facility] Bilirubin, total 0.4 0.1 - 1.2 mg/dL [facility] Protein, pl 6.3(L) 6.5 - 8.5 g/dL [facility] Albumin 4.0 3.5 - 5.0 g/dL [facility] Alk phos 51 40 - 130 Units/L [facility] ALT 21 7 - 45 Units/L [facility] AST 28 10 - 45 Units/L [facility] Blood 04/19/2022 10:0 0 AM CDT 04/19/2022 10:03 AM CDT Eren Cr MD LAB BLOOD ORDERABLES Final Re sult [facility] Department [place] [address] * (ABNORMAL) CBC with auto differential (04/19/2022 10:00 AM CDT) WBC 4.6 3.8 - 9.9 K/cumm [facility] Comment:Testing performed by : [address] [address] Hgb 11.7(L) 11.9 - 15.5 g/dL [facility] Comment:Testing performed by : [address] [address] Hct 35.5(L) 35.6 - 45.5 % [facility] Comment:Testing performed by : [address] [address] Plt 125(L) 150 - 400 K/cumm [facility] Comment:Testing performed by : [address] [address] MPV 10.6 9.1 - 12.3 fL [facility] RBC 3.54(L) 3.90 - 5.20 M/cumm [facility] MCV 100.3(H) 81.3 - 96.4 fL [facility] MCH 33.1 27.1 - 33.3 pg [facility] MCHC 33.0 32.3 - 35.7 g/dL [facility] RDW CV 14.1 11.1 - 14.9 % [facility] RDW SD 50.8(H) 35.7 - 48.1 fL [facility] NRBC abs 0.00 0.00 - 0.01 K/cumm [facility] Blood 04/19/2022 10:0 0 AM CDT 04/19/2022 10:03 AM CDT Eren Cr MD LAB BLOOD ORDERABLES Final Re sult Performing Organization Address City/State/[facility] Co de Phone Number [facility] One [facility] Department [place] [address] documented in this encounter Visit Diagnoses Diagnosis [...] 04/07 documented in this encounter Care Teams Economic Geographer Relationship Specialty Start Date End Date Julio César Briseno MD PCP - General 10/01/16 Eren Cr MD Referring Physician Medical Oncology 11/25/18 Yohana Bowen MD Radiation Oncologist Radiation Oncology 11/25/18 documented as of this encounter
--- OUTSIDE RECORDS SUMMARY | 2024-06-26 02:05 | XMS_ITS | Encounter Summary ---
Author Organization [facility] Address [address] [place] [address] Phone Care Team Providers Care Paper Folder Name Role Phone Julio César Briseno MD Primary Care Provider [phone] Eren Cr MD Unavailable [phone] Yohana Bowen MD Unavailable Reason for Visit * Episode Based Medications (Routine) - Authorized Specialty Diagnoses / Procedures Referred By Contellen t Referred To Contact Diagnoses Hypomagnesemia Eren Cr MD [address] [facility] [address] [place] [address] Phone: tel: fax: [facility] at [facility] and [facility] [facility] 7th [place] [address] Phone: tel: Referral ID Status Reason Start Date Expiration Date V isits Requested Visits Authorized [id number] Authorized 11/13/2021 04/01/2025 30 Encounter Details Date Type Department Care Team (Late st Contact Info) Description 01/29/2022 3:30 PM CDT Infusion [facility] Oncology [address] [place] [address] 7th [place] [address] Neuro-endocrine carcinoma (CMS/HCC) (HCC) (Primary [...] file 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 Gender Identity Not on file Sexual Orientation Straight 02/19/2021 9: 29 AM CDT Occupation Industry Job Start Date Job End Date retired Not on file Not on file Not on file documented as of this encounter Nursing Notes * Jocelyn Saucedo RN - 01/29/2022 3:30 PM CDT Oncology Nursing Note [facility] La Chung is a 71 [...] 01/29/2022 documented in this encounter Care Teams Paper Folder Relationship Specialty Start Date End Date Julio César Briseno MD PCP - General 10/01/16 Eren Cr MD Referring Physician Medical Oncology 11/25/18 Yohana Bowen MD Radiation Oncologist Radiation Oncology 11/25/18 documented as of this encounter
--- OUTSIDE RECORDS SUMMARY | 2024-06-26 02:05 | XMS_ITS | Encounter Summary ---
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) Procedures CT chest abdomen pelvis with contrast Eren Wu MD [address] [place] [address] Phone: tel: fax: [address] [address] Referral ID Status Reason Start Date Expiration Date Visits Re quested Visits Authorized [id number] Closed 01/29/2022 02/28/2023 1 1 Reason for Visit * Episode Based Medications (Routine) - Closed Specialty Diagnoses / Procedures [facility] Referred To Contact Diagnoses Neuro-endocrine carcinoma (HCC) Procedures study [id number] phase III cabozantinib Eren Wu MD [address] [facility] [address] [place] [address] Phone: tel: fax: [facility] at [facility] and [facility] [address] [facility] Advanced [facility] 7th [place] [address] Phone: tel: Referral ID Status Reason Start Date Expiration Date Visits Re quested Visits Authorized [id number] Closed 06/21/2021 06/26/2024 1 99 Encounter Details Date Type Department Care Team (Late st Contact Info) Description 01/29/2022 1:30 PM CDT Office Visit [facility] 7th [place] [address] [place] [address] Eren Wu MD [address] [facility] [address] [place] [address] Neuro-endocrine carcinoma (CMS/HCC) (HCC) (Primary [...] on file 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 Greyson Reeves. Biopsy revealed [...] balls of feet. Mild erythema. NEURO: A&Ox4, shelf filler grossly intact by conversation, moving all extremities [...] verbalized understanding. Idania Diaz PA-C [facility] Division of Medical Oncology [...] a homogeneous time-resolved immunofluorescent assay manufactured by [employer] and performed on the BRAHMS Kryptor Compact Plus. ? Values obtained with different assay methods or kits may be different and cannot be used interchangeably. ? Test results cannot be interpreted as absolute evidence for the presence or absence of malignant disease. Test Performed by: [facility] [address] [place] [address] Tubular Splitting Machine Tender: Immanuel Novak M.D. Ph.D.; CLIA# [id number] Blood 02/22/2022 10:5 5 AM CDT 02/22/2022 1:20 PM CDT us Eren Wu MD LAB BLOOD ORDERABLES Final Re sult [facility] One [facility] Department [place] [address] * (ABNORMAL) Comprehensive metabolic panel (02/22/2022 10:55 AM CDT) [facility] Sodium 143 135 - 145 mmol/L [facility] Comment:Testing performed by : [facility], [address] [place] [address] Potassium, pl 4.2 3.3 - 4.9 mmol/L [facility] Chloride 109 97 - 110 mmol/L [facility] CO2 27 22 - 32 mmol/L [facility] Anion gap 7 2 - 15 mmol/L [facility] BUN 14 8 - 25 mg/dL [facility] Creatinine 1.12(H) 0.60 - 1.10 mg/dL [facility] Glucose 94 70 - 199 mg/dL [facility] Comment: Interpretive Data Fasting glucose [...] 2017. Calcium 10.2 8.5 - 10.3 mg/dL [facility] Bilirubin, total 0.7 0.1 - 1.2 mg/dL [facility] Protein, pl 6.4(L) 6.5 - 8.5 g/dL [facility] Albumin 4.0 3.5 - 5.0 g/dL [facility] Alk phos 68 40 - 130 Units/L [facility] ALT 23 7 - 45 Units/L [facility] AST 33 10 - 45 Units/L [facility] Blood 02/22/2022 10:5 5 AM CDT 02/22/2022 10:57 AM CDT Eren Wu MD LAB BLOOD ORDERABLES Final Re sult [facility] One [facility] Department [place] [address] * (ABNORMAL) CBC with auto differential (02/22/2022 10:55 AM CDT) WBC 3.9 3.8 - 9.9 K/cumm [facility] Comment:Testing performed by : [address] [address] Hgb 11.0(L) 11.9 - 15.5 g/dL [facility] Comment:Testing performed by : [address] [address] Hct 32.7(L) 35.6 - 45.5 % [facility] Comment:Testing performed by : [address] [address] Plt 98(L) 150 - 400 K/cumm [facility] Comment:Testing performed by : [address] [address] MPV 10.7 9.1 - 12.3 fL [facility] RBC 3.25(L) 3.90 - 5.20 M/cumm [facility] MCV 100.6(H) 81.3 - 96.4 fL [facility] MCH 33.8(H) 27.1 - 33.3 pg [facility] MCHC 33.6 32.3 - 35.7 g/dL [facility] RDW CV 13.6 11.1 - 14.9 % [facility] RDW SD 50.1(H) 35.7 - 48.1 fL [facility] NRBC abs 0.00 0.00 - 0.01 K/cumm [facility] Blood 02/22/2022 10:5 5 AM CDT 02/22/2022 10:57 AM CDT Eren Wu MD LAB BLOOD ORDERABLES Final Re sult Performing Organization Address [facility] de Phone Number [facility] [place] [address] * (ABNORMAL) Vitamin D 25 hydroxy (02/22/2022 10:55 AM CDT) Vitamin D 25-OH 26(L) 30 - 80 ng/mL [facility] Blood 02/22/2022 10:5 5 AM CDT 02/22/2022 12:37 PM CDT Eren Wu MD LAB BLOOD ORDERABLES Final Re sult Performing Organization Address [facility] de Phone Number [facility] [place] [address] * Phosphorus (02/22/2022 10:55 AM CDT) Phosphorus, pl 2.4 2.3 - 4.5 mg/dL [facility] Comment:Testing performed by : [facility], [address] [place] [address] Blood 02/22/2022 10:5 5 AM CDT 02/22/2022 10:57 AM CDT Eren Wu MD LAB BLOOD ORDERABLES Final Re sult Performing Organization Address City/[facility]/ZIP Co de Phone Number [facility] One [facility] [place] [address] * (ABNORMAL) Lipid panel (02/22/2022 10:55 AM CDT) [facility] Signature Cholesterol 174 30 - 199 mg/dL [facility] Comment: Interpretive Data Ages < [...] revised on 2018. Triglycerides 217(H) <=149 mg/dL [facility] Comment: Interpretive Data Ages < or [...] revised on 2018. HDL 55 >=40 mg/dL [facility] Comment: Interpretive [...] on 2018. LDL, calculated 76 <=129 mg/dL [facility] Comment: Interpretive [...] revised on 2018. Non-HDL Cholesterol 119 mg/dL [facility] Comment: Interpretive Data [...] last revised on 2018. Chol/HDL ratio 3 [facility] Blood 02/22/2022 10:5 5 AM CDT 02/22/2022 12:37 PM CDT Eren Wu MD LAB BLOOD ORDERABLES Final Re sult Performing Organization Address [facility] Co de Phone Number [facility] [place] [address] * Magnesium (02/22/2022 10:55 AM CDT) Magnesium 1.7 1.4 - 2.5 mg/dL [facility] Comment:Testing performed by : [facility], [address] [place] [address] Blood 02/22/2022 10:5 5 AM CDT 02/22/2022 10:57 AM CDT Eren Wu MD LAB BLOOD ORDERABLES Final Re sult Performing Organization Address [facility] Co de Phone Number [facility] [place] [address] * CT chest abdomen pelvis with contrast [...] 01/29/2022 documented in this encounter Care Teams Batch Freezer Operator Relationship Specialty Start Date End Date Julio César Briseno MD PCP - General 10/01/16 Eren Wu MD Referring Physician Medical Oncology 11/25/18 Yohana Bowen MD Radiation Oncologist Radiation Oncology 11/25/18 documented as of this encounter
--- OUTSIDE RECORDS SUMMARY | 2024-06-26 02:05 | XMS_ITS | Encounter Summary ---
Author Organization [facility] of [facility] Address [address] [place] [address] Phone Care Team Providers Care Clean Room Assembler Name Role Phone Julio César Briseno MD Primary Care Provider [phone] Eren Cr MD Unavailable [phone] Yohana Bowen MD Unavailable Reason for Visit * Reason Comments OP Infusion Encounter Details Date Type Department Care Team (Late st Contact Info) Description 03/08/2022 3:30 PM CDT Infusion [facility] Oncology [address] [facility] Advanced Medicine 7th [place] [id number] Dehydration (Primary Dx); Neuroendocrine carcinoma (CMS/HCC) (HCC); [...] on file 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 La Chung is a [...] 03/08/2022 3:30 PM CDT Oncology Nursing Note [facility] Assumed care of La Chung [...] 03/08/2022 documented in this encounter Care Teams Clean Room Assembler Relationship Specialty Start Date End Date Julio César Briseno MD PCP - General 10/01/16 Eren Cr MD Referring Physician Medical Oncology 11/25/18 Yohana Bowen MD Radiation Oncologist Radiation Oncology 11/25/18 documented as of this encounter
--- OUTSIDE RECORDS SUMMARY | 2024-06-26 02:05 | XMS_ITS | Encounter Summary ---
Author Organization [facility] of [facility] Address [address] [place] [address] Phone Care Team Providers Care Lion Tamer Name Role Phone Julio César Briseno MD Primary Care Provider Eren Cr MD Unavailable [phone] Yohana Bowen MD Unavailable Encounter Details Date Type Department Care Team (Late st Contact Info) Description 03/15/2022 Orders Only [facility] Oncology [address] [place] [address] Eren rC MD [address] [address] [place], [place] [id number] Neuroendocrine carcinoma (CMS/HCC) (HCC) (Primary Dx) Social [...] file 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
--- OUTSIDE RECORDS SUMMARY | 2024-06-26 02:05 | XMS_ITS | Encounter Summary ---
Author Organization [facility] Address [address] [place] [address] Phone Care Team Providers Care Telephone Collector Name Role Phone Julio César Briseno MD Primary Care Provider [phone] Eren Cr MD Unavailable [phone] Yohana Bowen MD Unavailable Encounter Details Date Type Department Care Team (Late st Contact Info) Description 02/01/2022 Orders Only [facility] Oncology [address] [facility] Advanced Medicine 7th [place] [address] [place] [address] Eren Cr MD [address] [facility] [address] [place] [address] Neuro-endocrine carcinoma (CMS/HCC) (HCC) (Primary Dx); Elevated [...] on file 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 [place] [address] * (ABNORMAL) T4, free (02/01/2022 2:10 PM CDT) Free T4 0.85(L) 0.90 - 1.70 ng/dL [facility] Blood 02/01/2022 2:10 PM CDT 02/01/2022 3:02 PM CDT Eren Cr MD LAB BLOOD ORDERABLES Final Re sult Performing Organization Address City/[facility] de Phone Number [facility] [place] [address] documented in this encounter Visit Diagnoses Diagnosis Neuro-endocrine carcinoma (HCC)- Primary Other malignant neoplasm of unspecified site Elevated TSH Other abnormal blood chemistry documented in this encounter Care Teams Telephone Collector Relationship Specialty Start Date End Date Julio César Briseno MD PCP - General 10/01/16 Eren Cr MD Referring Physician Medical Oncology 11/25/18 Yohana Bowen MD Radiation Oncologist Radiation Oncology 11/25/18 documented as of this encounter
--- OUTSIDE RECORDS SUMMARY | 2024-06-26 02:05 | XMS_ITS | Encounter Summary ---
Author Organization [facility] of [facility] Address [address] [place] [address] Phone Care Team Providers Care Human Resources Benefits Coordinator Name Role Phone Julio César Briseno MD Primary Care Provider Eren Cr MD Unavailable [phone] Yohana Bowen MD Unavailable Encounter Details Date Type Department Care Team (Late st Contact Info) Description 02/07/2022 Orders Only [facility] Oncology [address] 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
--- OUTSIDE RECORDS SUMMARY | 2024-06-26 02:05 | XMS_ITS | Encounter Summary ---
Author Organization [facility] of [facility] Address [address] [place] [address] Phone Care Team Providers Care Multimedia Services Coordinator Name Role Phone Julio César Briseno MD Primary Care Provider Eren Cr MD Unavailable [phone] Yohana Bowen MD Unavailable Encounter Details Date Type Department Care Team (Late st Contact Info) Description 02/02/2022 Orders Only [facility] Oncology [address] [facility] Advanced [facility] 7th [place] [address] [place] [address] Eren Cr MD [address] [facility] [address] [place] [address] Social History Tobacco Use Types Packs/Day Years [...] file 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 Gender Identity Not on file Sexual Orientation Straight 02/19/2021 9: 29 AM CDT Occupation Industry Job Start Date Job End Date retired Not on file Not on file Not on file documented as of this encounter Plan of Treatment Not on file documented as of this encounter Visit Diagnoses Not on filedocumented in this encounter Care Teams Multimedia Services Coordinator Relationship Specialty Start Date End Date Julio César Briseno MD PCP - General 10/01/16 Eren Cr MD Referring Physician Medical Oncology 11/25/18 Yohana Bowen MD Radiation Oncologist Radiation Oncology 11/25/18 documented as of this encounter
--- OUTSIDE RECORDS SUMMARY | 2024-06-26 02:05 | XMS_ITS | Encounter Summary ---
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
--- OUTSIDE RECORDS SUMMARY | 2024-06-26 02:05 | XMS_ITS | Encounter Summary ---
Author Organization [facility] Address [address] [place] [address] Phone Care Team Providers Care American History Teacher Name Role Phone Julio César Briseno MD Primary Care Provider Eren Cr MD Unavailable [phone] Yohana Bowen MD Unavailable Encounter Details Date Type Department Care Team (Late st Contact Info) Description 01/26/2022 Orders Only [facility] Oncology [address] [place] [address] Eren Cr MD [address] [place], [place] [id number] Social History Tobacco Use Types Packs/Day Years [...] on file 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 Gender Identity Not on file Sexual Orientation Straight 02/19/2021 9: 29 AM CDT Occupation Industry Job Start Date Job End Date retired Not on file Not on file Not on file documented as of this encounter Plan of Treatment Not on file documented as of this encounter Visit Diagnoses Not on filedocumented in this encounter Care Teams American History Teacher Relationship Specialty Start Date End Date Julio César Briseno MD PCP - General 10/01/16 Eren Cr MD Referring Physician Medical Oncology 11/25/18 Yohana Bowen MD Radiation Oncologist Radiation Oncology 11/25/18 documented as of this encounter
--- OUTSIDE RECORDS SUMMARY | 2024-06-26 02:05 | XMS_ITS | Encounter Summary ---
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 Eren Cr MD [address] [facility] [address] [place] [address] Phone: tel: fax: [facility] [address] [facility] 7th [place] [address] Phone: tel: Referral ID Status Reason Start Date Expiration Date Visits Re quested Visits Authorized [id number] Closed 06/21/2021 06/26/2024 1 99 Encounter Details Date Type Department Care Team (Latest Contact Info) Description 01/29/2022 2:30 PM CDT Research Med Pick-Up/CTRU Attending Psychiatrist [facility] Oncology [address] [place] [address] 7th [place] [address] Neuro-endocrine carcinoma (CMS/HCC) (HCC) (Primary Dx) Social [...] on file 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
--- OUTSIDE RECORDS SUMMARY | 2024-06-26 02:05 | XMS_ITS | Encounter Summary ---
Author Organization [facility] Healthcare Address [address] [place] [address] Care Team Providers Care Property Maintenance Supervisor Name Role Phone Julio César Briseno MD Primary Care Provider [phone] Eren Cr MD Unavailable [phone] Yohana Bowen MD Unavailable Encounter Details Date Type Department Care Team (Latest Contact Info) Description 01/29/2022 11:52 AM CDT - 01/29/2022 11:59 PM CDT Hospital Encounter [facility] [address] [place] [address] Neuro-endocrine carcinoma (CMS/HCC) (HCC) Discharge Disposition: Discharge [...] on file 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 Gender Identity Not on file Sexual [...] capsuleIndications :supplement Take 1 tablet by mouth distribution field engineer before breakfast 07/04/2016 4 cholecalciferol (VITAMIN D-3) 2,000 unit capsule Take 1 capsule (2,000 Units total) by mouth daily 30 capsule 2 04/25/2019 3 cholestyramine (QUESTRAN) 4 gram packet Take 1 packet by mouth 3 (three) times a day with meals 270 packet 3 09/04/2019 2 clotrimazole-betam ethasone (LOTRISONE) cream Apply 1 Application topically daily as needed (rash) 4 coenzyme [id number] E 100-5 mg-unit capsuleIndications :supplement Take 1 tablet by mouth distribution field engineer before breakfast 4 diphenoxylate-atro pine (LOMOTIL) 2.5-0.025 [...] dose).?? Avoid Jas's Wort, grapefruit products and Emerson oranges while on treatment. placed on hold 09/26/22 for covid 01/29/2022 4 levothyroxine (Synthroid) 75 mcg tabletIndications: Hypothyroidism due to medication Take 1 tablet (75 mcg total) by mouth distribution field engineer before breakfast 30 tablet 3 11/16/2021 2 [...] 90 - 130 mL/min/1. 73 m2 [facility] Comment: Interpretive Data Reference Interval Normal [...] was last reviewed 2021. Testing performed by: [facility], [address] [place] [phone] Blood 01/29/2022 12:4 0 PM CDT 01/29/2022 12:43 PM CDT us Eren Cr MD LAB BLOOD ORDERABLES Final Re sult [facility] Department [place] [address] * (ABNORMAL) Differential, auto (01/29/2022 12:40 PM CDT) Neutrophil abs 1.8 1.8 - 6.6 K/cumm [facility] Comment:Testing performed by : [facility], [address] [place] [phone] Lymphocyte abs 0.5(L) 1.2 - 3.3 K/cumm [facility] Comment:Testing performed by : [facility], [address] [place] [phone] Monocyte abs 0.4 0.2 - 1.2 K/cumm [facility] Comment:Testing performed by : [facility], [address] [place] [phone] Eosinophil abs 0.4 0.0 - 0.5 K/cumm [facility] Comment:Testing performed by : [facility], [address] [place] [phone] Basophil abs 0.0 0.0 - 0.2 K/cumm [facility] Comment:Testing performed by : [facility], [address] [place] [phone] Neutrophil pct 57.0 % [facility] Comment: Interpretive Data Percent cell count reference ranges are not reported, since discordance with absolute values may lead to misinterpretation of CBC data. Current Interpretive Data was last revised on 2017. Testing performed by: [facility], [address] [place] [phone] Lymphocyte pct 16.9 % [facility] Comment: Interpretive Data Percent cell count reference ranges are not reported, since discordance with absolute values may lead to misinterpretation of CBC data. Current Interpretive Data was last revised on 2017. Testing performed by: [facility], [address] [place] [phone] Monocyte pct 13.4 % [facility] Comment:Testing performed by : [facility], [address] [place] [phone] Eosinophil pct 12.3 % [facility] Comment:Testing performed by : [facility], [address] [place] [phone] Basophil pct 0.4 % [facility] Comment:Testing performed by : [address] [phone] Blood 01/29/2022 12:4 0 PM CDT 01/29/2022 12:43 PM CDT Eren Cr MD LAB BLOOD ORDERABLES Final Re sult [facility] [place] [address] * (ABNORMAL) CBC with auto differential (01/29/2022 12:40 PM CDT) WBC 3.2(L) 3.8 - 9.8 K/cumm [facility] Comment:Testing performed by : [facility], [address] [place] [phone] Hgb 11.0(L) 12.1 - 15.1 g/dL [facility] Comment:Testing performed by : [address] [phone] Hct 30.9(L) 36.1 - 44.3 % [facility] Comment:Testing performed by : [place] [phone] Plt 88(L) 140 - 440 K/cumm [facility] Comment:Testing performed by : [address] [phone] MPV 8.1 6.8 - 10.4 fL [facility] Comment:Testing performed by : [address] [phone] RBC 3.00(L) 3.90 - 5.00 M/cumm [facility] Comment:Testing performed by : [address] [phone] MCV 102.9(H) 80.0 - 97.6 fL [facility] Comment:Testing performed by : [address] [phone] MCH 36.6(H) 26.7 - 33.7 pg [facility] Comment:Testing performed by : [address] [phone] MCHC 35.6(H) 32.7 - 35.5 g/dL [facility] Comment:Testing performed by : [address] [phone] RDW CV 13.2 11.8 - 14.6 % [facility] Comment:Testing performed by : [facility], [address] [place] [phone] NRBC abs 0.00 0.00 - 0.01 K/cumm [facility] Comment:Testing performed by : [facility], [address] [place] [phone] Blood 01/29/2022 12:4 0 PM CDT 01/29/2022 12:43 PM CDT us Eren Cr MD LAB BLOOD ORDERABLES Final Re sult [facility] Department [place] [address] * (ABNORMAL) Comprehensive metabolic panel (01/29/2022 12:40 PM CDT) Sodium 139 135 - 145 mmol/L [facility] Comment:Testing performed by : [facility], [address] [place] [phone] Potassium, pl 3.9 3.3 - 4.9 mmol/L [facility] Comment:Testing performed by : [facility], [address] [place] [phone] Chloride 107 97 - 110 mmol/L [facility] Comment:Testing performed by : [facility], [address] [place] [phone] CO2 24 22 - 32 mmol/L [facility] Comment:Testing performed by : [facility], [address] [place] [phone] Anion gap 8 2 - 15 mmol/L [facility] Comment:Testing performed by : [facility], [address] [place] [phone] BUN 16 8 - 25 mg/dL [facility] Comment:Testing performed by : [facility], [address] [place] [phone] Creatinine 0.97 0.60 - 1.10 mg/dL [facility] Comment:Testing performed by : [facility], [address] [place] [phone] Glucose 129 70 - 199 mg/dL CERNER [...] was last revised 2017. Testing performed by: [facility], [address] [place] [phone] Calcium 9.5 8.5 - 10.3 mg/dL [facility] Comment:Testing performed by : [address] [phone] Bilirubin, total 0.5 0.1 - 1.2 mg/dL [facility] Comment:Testing performed by : [facility], [address] [place] [phone] Protein, pl 6.0(L) 6.5 - 8.5 g/dL [facility] Comment:Testing performed by : [address] [phone] Albumin 4.1 3.5 - 5.0 g/dL [facility] Comment:Testing performed by : [address] [phone] Alk phos 74 40 - 130 Units/L [facility] Comment:Testing performed by : [place] [phone] ALT 16 7 - 45 Units/L [facility] Comment:Testing performed by : [address] [phone] AST 24 10 - 45 Units/L [facility] Comment:Testing performed by : [address] [phone] Blood 01/29/2022 12:4 0 PM CDT 01/29/2022 12:43 PM CDT Eren Cr MD LAB BLOOD ORDERABLES Final Re sult Performing Organization Address [facility] Co de Phone Number [facility] [place] [address] * (ABNORMAL) Magnesium (01/29/2022 12:40 PM CDT) Pathologist [facility] Magnesium 1.2(L) 1.4 - 2.5 mg/dL [facility] Comment:Testing performed by : [facility], [address] [place] [phone] Blood 01/29/2022 12:4 0 PM CDT 01/29/2022 12:43 PM CDT Eren Cr MD LAB BLOOD ORDERABLES Final Re sult Performing Organization Address [facility] de Phone Number [facility] [place], [place] [id number] * (ABNORMAL) Phosphorus (01/29/2022 12:40 PM CDT) Pathologist [facility] Phosphorus, pl 1.6(L) 2.3 - 4.5 mg/dL [facility] Comment:Testing performed by : [facility], [address] [place] [phone] Blood 01/29/2022 12:4 0 PM CDT 01/29/2022 12:43 PM CDT Eren Cr MD LAB BLOOD ORDERABLES Final Re sult Performing Organization Address [facility] [place] [address] * (ABNORMAL) TSH (01/29/2022 12:40 PM CDT) Thyroid Stimulating Hormone 10.20(H) 0.30 - 4.20 mcIUnit/mL [facility] Blood 01/29/2022 12:4 0 PM CDT 01/29/2022 1:11 PM CDT us Eren Cr MD LAB BLOOD ORDERABLES Final Re sult [facility] Department [place] [address] * (ABNORMAL) Chromogranin A (01/29/2022 12:40 PM CDT) Chromogranin A 930(H) <93 ng/mL [facility] Comment: Impaired renal or hepatic function or treatment with proton pump inhibitors may result in artifactual elevations of Chromogranin A. ADDITIONAL INFORMATION This test was developed and its performance characteristics determined by [facility] in a manner consistent with CLIA [...] a homogeneous time-resolved immunofluorescent assay manufactured by [employer] and performed on the [employer] Kryptor Compact Plus. ? Values obtained with different assay methods or kits may be different and cannot be used interchangeably. ? Test results cannot be interpreted as absolute evidence for the presence or absence of malignant disease. Test Performed by: [address] [address] Costing Manager: Immanuel Novak M.D. Ph.D.; CLIA# [id number] Blood 01/29/2022 12:4 0 PM CDT 01/29/2022 12:59 PM CDT Eren Cr MD LAB BLOOD ORDERABLES Final Re sult Performing Organization Address [facility] Co de Phone Number [facility] Department [place] [address] * Protein / creatinine ratio, urine, random (01/29/2022 12:28 PM CDT) Protein, ur, quant 23.7 mg/dL [facility] Comment: Interpretive Data No reference range established. Current interpretive data was last revised 2018. Creatinine Ur 208.4 mg/dL [facility] Comment: Interpretive Data No reference range established. Current interpretive data was last revised 2018. Protein/creatinin e ratio 113.7 0.0 - 180.0 mg/g CR [facility] Urine 01/29/2022 12:2 8 PM CDT 01/29/2022 3:15 PM CDT Eren Cr MD LAB URINE ORDERABLES Final Re sult Performing Organization Address [facility] Co de Phone Number [facility] [place] [address] documented in this encounter Visit Diagnoses Diagnosis Neuro-endocrine carcinoma (HCC) Other malignant neoplasm of unspecified site documented in this encounter Care Teams Property Maintenance Supervisor Relationship Specialty Start Date End Date Julio César Briseno MD PCP - General 10/01/16 Eren Cr MD Referring Physician Medical Oncology 11/25/18 Yohana Bowen MD Radiation Oncologist Radiation Oncology 11/25/18 documented as of this encounter
--- OUTSIDE RECORDS SUMMARY | 2024-06-26 02:05 | XMS_ITS | Encounter Summary ---
Author Organization [facility] Address [address] [place] [address] Phone Care Team Providers Care Trim Mechanic Name Role Phone Julio César Briseno MD Primary Care Provider [phone] Eren Cr MD Unavailable [phone] Yohana Bowen MD Unavailable Encounter Details Date Type Department Care Team (Late st Contact Info) Description 02/22/2022 Orders Only [facility] Oncology [address] [place] [address] Eren Cr MD [address] [place], [place] [id number] Social History Tobacco Use Types Packs/Day Years [...] file 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
--- OUTSIDE RECORDS SUMMARY | 2024-06-26 02:05 | XMS_ITS | Encounter Summary ---
Author Organization [facility] Address [address] [place] [address] Phone Care Team Providers Care Reed Fixer Name Role Phone Julio César Briseno MD Primary Care Provider [phone] Eren Cr MD Unavailable [phone] Yohana Bowen MD Unavailable Reason for Visit * Episode Based Medications (Routine) - Closed Specialty Diagnoses / Procedures Referred By Evelyne bowman Referred To Contact Diagnoses Neuro-endocrine carcinoma (HCC) Procedures study [id number] phase III cabozantinib Eren Cr MD [address] [facility] [address] [place] [address] Phone: tel: fax: [facility] [address] [facility] 7th [place] [address] Phone: tel: Referral ID Status Reason Start Date Expiration Date Visits Re quested Visits Authorized [id number] Closed 06/21/2021 06/26/2024 1 99 Encounter Details Date Type Department Care Team (Late st Contact Info) Description 02/22/2022 11:15 AM CDT Office Visit [facility] Oncology [address] [place] [address] Eren Cr MD [address] [facility] [address] [place] [address] Neuro-endocrine carcinoma (CMS/HCC) (HCC) Social History Tobacco [...] file 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 . Minimal erythema. NEURO: A&Ox4, groundwater monitoring technician grossly intact by conversation, moving all [...] 022 documented in this encounter Care Teams Reed Fixer Relationship Specialty Start Date End Date Julio César Briseno MD PCP - General 10/01/16 Eren Cr MD Referring Physician Medical Oncology 11/25/18 Yohana Bowen MD Radiation Oncologist Radiation Oncology 11/25/18 documented as of this encounter
--- OUTSIDE RECORDS SUMMARY | 2024-06-26 02:05 | XMS_ITS | Encounter Summary ---
Author Organization [facility] Address [address] [place] [address] Phone Care Team Providers Care Cdl Driver Name Role Phone Julio César Briseno MD Primary Care Provider [phone] Eren Cr MD Unavailable [phone] Yohana Bowen MD Unavailable Encounter Details Date Type Department Care Team (Late st Contact Info) Description 01/30/2022 Orders Only [facility] Oncology [address] [facility] 7th [place] [address] [place] [address] Eren Cr MD [address] [facility] [address] [place] [address] Social History Tobacco Use Types Packs/Day Years [...] on file 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
--- OUTSIDE RECORDS SUMMARY | 2024-06-26 02:05 | XMS_ITS | Encounter Summary ---
Author Organization [facility] Address [address] [place] [address] Phone Care Team Providers Care Linemarker Name Role Phone Julio César Briseno MD Primary Care Provider Eren Cr MD Unavailable [phone] Yohana Bowen MD Unavailable Encounter Details Date Type Department Care Team (Late st Contact Info) Description 02/22/2022 Orders Only [facility] Oncology [address] [place] [address] Eren Cr MD [address] [place] [address] Neuro-endocrine carcinoma (CMS/HCC) (HCC) (Primary [...] on file 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 ? Values obtained with different assay methods or kits may be different and cannot be used interchangeably. ? Test results cannot be interpreted as absolute evidence for the presence or absence of malignant disease. Test Performed by: [facility] - [address] [address] Med Admin: Immanuel Novak M.D. Ph.D.; CLIA# [id number] Blood 03/22/2022 9:53 AM CDT 03/22/2022 11:54 AM CDT us Eren Cr MD LAB BLOOD ORDERABLES Final Re sult [facility] Department [place] [address] * (ABNORMAL) Comprehensive metabolic panel (03/22/2022 9:53 AM CDT) Sodium 139 135 - 145 mmol/L [facility] Comment:Testing performed by : [facility], [address] [place] [address] Potassium, pl 4.3 3.3 - 4.9 mmol/L [facility] Chloride 111(H) 97 - 110 mmol/L [facility] CO2 24 22 - 32 mmol/L [facility] Anion gap 4 2 - 15 mmol/L [facility] BUN 12 8 - 25 mg/dL [facility] Creatinine 1.20(H) 0.60 - 1.10 mg/dL [facility] Glucose 126 70 - 199 mg/dL [facility] Calcium 9.8 8.5 - 10.3 mg/dL [facility] Bilirubin, total 0.6 0.1 - 1.2 mg/dL [facility] Protein, pl 6.4(L) 6.5 - 8.5 g/dL [facility] Albumin 4.2 3.5 - 5.0 g/dL [facility] Alk phos 70 40 - 130 Units/L [facility] ALT 20 7 - 45 Units/L [facility] AST 29 10 - 45 Units/L [facility] Blood 03/22/2022 9:53 AM CDT 03/22/2022 9:55 AM CDT us Eren Cr MD LAB BLOOD ORDERABLES Final Re sult [facility] Department [place] [address] * (ABNORMAL) CBC with auto differential (03/22/2022 9:53 AM CDT) [facility] WBC 3.0(L) 3.8 - 9.9 K/cumm [facility] Comment:Testing performed by : [address] [address] Hgb 11.4(L) 11.9 - 15.5 g/dL [facility] Comment:Testing performed by : [address] [address] Hct 35.0(L) 35.6 - 45.5 % [facility] Comment:Testing performed by : [address] [address] Plt 97(L) 150 - 400 K/cumm [facility] Comment:Testing performed by : [address] [address] MPV 10.3 9.1 - 12.3 fL [facility] RBC 3.48(L) 3.90 - 5.20 M/cumm [facility] MCV 100.6(H) 81.3 - 96.4 fL [facility] MCH 32.8 27.1 - 33.3 pg [facility] MCHC 32.6 32.3 - 35.7 g/dL [facility] RDW CV 14.4 11.1 - 14.9 % [facility] RDW SD 51.6(H) 35.7 - 48.1 fL [facility] NRBC abs 0.00 0.00 - 0.01 K/cumm [facility] Blood 03/22/2022 9:53 AM CDT 03/22/2022 9:55 AM CDT us Eren Cr MD LAB BLOOD ORDERABLES Final Re sult Performing Organization Address [facility] [place] [address] * (ABNORMAL) Vitamin D 25 hydroxy (03/22/2022 9:53 AM CDT) Pathologist [facility] Department Vitamin D 25-OH 23(L) 30 - 80 ng/mL [facility] Blood 03/22/2022 9:53 AM CDT 03/22/2022 11:25 AM CDT Eren Cr MD LAB BLOOD ORDERABLES Final Re sult Performing Organization Address [facility] Co de Phone Number [place], [place] [id number] * (ABNORMAL) Phosphorus (03/22/2022 9:53 AM CDT) [facility] Phosphorus, pl 1.8(L) 2.3 - 4.5 mg/dL [facility] Comment:Testing performed by : [address] [address] Blood 03/22/2022 9:53 AM CDT 03/22/2022 9:55 AM CDT Eren Cr MD LAB BLOOD ORDERABLES Final Re sult Performing Organization Address [facility] Co de Phone Number [place], [place] [phone] * (ABNORMAL) Lipid panel (03/22/2022 9:53 AM CDT) [facility] Cholesterol 165 30 - 199 mg/dL [facility] revised on 2018. Triglycerides 162(H) <=149 mg/dL [facility] Comment: [...] 2018. HDL 56 >=40 mg/dL [facility] [...] on 2018. LDL, calculated 77 <=129 mg/dL [facility] Comment: Interpretive Data [...] revised on 2018. Non-HDL Cholesterol 109 mg/dL [facility] Comment: Interpretive Data [...] last revised on 2018. Chol/HDL ratio 3 [facility] Blood 03/22/2022 9:53 AM CDT 03/22/2022 11:25 AM CDT us Eren Cr MD LAB BLOOD ORDERABLES Final Re sult [facility] [place] [address] * Magnesium (03/22/2022 9:53 AM CDT) Pathologist [facility] Department Magnesium 1.5 1.4 - 2.5 mg/dL [facility] Comment:Testing performed by : [address] [address] Blood 03/22/2022 9:53 AM CDT 03/22/2022 9:55 AM CDT Eren Cr MD LAB BLOOD ORDERABLES Final Re sult Performing Organization Address [facility] [place] [address] * (ABNORMAL) Protein / creatinine ratio, urine, random (03/22/2022 9:50 AM CDT) Pathologist [facility] Protein, ur, quant 45.0 mg/dL [facility] Comment: Interpretive Data No reference range established. Current interpretive data was last revised 2018. Creatinine Ur 235.0 mg/dL [facility] Comment: Interpretive Data No reference range established. Current interpretive data was last revised 2018. Protein/creatinin e ratio 191.5(H) 0.0 - 180.0 mg/g CR [facility] Urine 03/22/2022 9:50 AM CDT 03/22/2022 10:58 AM CDT Eren Cr MD LAB URINE ORDERABLES Final Re sult Performing Organization Address [facility] [place] [address] documented in this encounter Visit Diagnoses Diagnosis [...] 22 documented in this encounter Care Teams Linemarker Relationship Specialty Start Date End Date Julio César Briseno MD PCP - General 10/01/16 Eren Cr MD Referring Physician Medical Oncology 11/25/18 Yohana Bowen MD Radiation Oncologist Radiation Oncology 11/25/18 documented as of this encounter
--- OUTSIDE RECORDS SUMMARY | 2024-06-26 02:05 | XMS_ITS | Encounter Summary ---
Author Organization [facility] Address [address] [place] [address] Phone Care Team Providers Care Independent Beauty Consultant Name Role Phone Julio César Briseno MD Primary Care Provider [phone] Eren Cr MD Unavailable [phone] Yohana Bowen MD Unavailable Encounter Details Date Type Department Care Team (Late st Contact Info) Description 02/22/2022 Orders Only [facility] Oncology [address] [place] [address] Eren Cr MD [address] [place], [place] [phone] Dehydration (Primary Dx); Neuroendocrine carcinoma (CMS/HCC) (HCC) [...] file 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
--- OUTSIDE RECORDS SUMMARY | 2024-06-26 02:05 | XMS_ITS | Encounter Summary ---
Author Organization [facility] Address [address] [place] [address] Phone Care Team Providers Care Millwright Helper Name Role Phone Julio César Briseno MD Primary Care Provider Eren Cr MD Unavailable [phone] Yohana Bowen MD Unavailable Encounter Details Date Type Department Care Team (Late st Contact Info) Description 02/01/2022 Orders Only [facility] Oncology [address] [place] [address] Eren Cr MD [address] [place], [place] [phone] Social History Tobacco Use Types Packs/Day Years [...] on file 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
--- OUTSIDE RECORDS SUMMARY | 2024-06-26 02:05 | XMS_ITS | Encounter Summary ---
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 Gender Identity Not on file Sexual [...] First Orde red Date ONCBCN NURSING COMMUNICATION [id number] 02/22 ONCBCN NURSING COMMUNICATION [id number] 1 0 02/22/2022 PHYSICIAN COMMUNICATION ORDER 1 02/22/2022 Appointment Requests Count Last Ordered Date Fi rst Ordered Date ONCBCN INFUSION APPT REQUEST 1 02/22/2022 documented in this encounter Care Teams Machine Plug Shaper Relationship Specialty Start Date End Date Julio César Briseno MD PCP - General 10/01/16 Eren Cr MD Referring Physician Medical Oncology 11/25/18 Yohana Bowen MD Radiation Oncologist Radiation Oncology 11/25/18 documented as of this encounter
--- OUTSIDE RECORDS SUMMARY | 2024-06-26 02:05 | XMS_ITS | Encounter Summary ---
Author Organization [facility] Address [address] [place] [address] Phone Care Team Providers Care Global Analytics Head Name Role Phone Julio César Briseno MD Primary Care Provider [phone] Eren Cr MD Unavailable [phone] Yohana Bowen MD Unavailable Reason for Visit * Episode Based Medications (Routine) - Authorized Specialty Diagnoses / Procedures Referred By Contellen t Referred To Contact Diagnoses Hypomagnesemia Eren Cr MD [address] [facility] [address] [place] [address] Phone: tel: fax: [facility] 7th [place] [address] Phone: tel: Referral ID Status Reason Start Date Expiration Date V isits Requested Visits Authorized [id number] Authorized 11/13/2021 04/01/2025 1 30 Encounter Details Date Type Department Care Team (Late st Contact Info) Description 03/01/2022 4:00 PM CDT Infusion [facility] Oncology [address] [place] [address] Advanced Medicine 7th [place] [address] Dehydration (Primary Dx); Neuroendocrine carcinoma [...] on file 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
--- OUTSIDE RECORDS SUMMARY | 2024-06-26 02:05 | XMS_ITS | Encounter Summary ---
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) Procedures CT chest abdomen pelvis with contrast Eren Cr MD [address] [address] [place] [address] Phone: tel: fax: [facility] [address] [place] [address] Referral ID Status Reason Start Date Expiration Date Visits Re quested Visits Authorized [id number] Closed 01/29/2022 02/28/2023 1 1 Reason for Visit * MRI/CAT/PET Scan (Routine) - Closed Specialty Diagnoses / Procedures [facility] Referred To Contact Radiology Diagnoses 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) Procedures CT chest abdomen pelvis with contrast Eren Cr MD [address] [employer] [address] [place] [address] Phone: tel: fax: [facility] 1 [facility] [place] [address] Referral ID Status Reason Start Date Expiration Date Visits Re quested Visits Authorized [id number] Closed 01/29/2022 02/28/2023 1 1 Encounter Details Date Type Department Care Team (Latest Contact Info) Description 02/02/2022 3:49 PM CDT - 02/02/2022 4:29 PM CDT Hospital Encounter [facility] [address] [place] [address] Eern Cr MD [address] [facility] [address] [place] [address] Neuro-endocrine carcinoma (CMS/HCC) (HCC); Malignant neoplasm metastatic [...] file 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 Gender Identity Not on file [...] capsuleIndications :supplement Take 1 tablet by mouth pacs specialist before breakfast 07/04/2016 4 cholecalciferol (VITAMIN D-3) 2,000 unit capsule Take 1 capsule (2,000 Units total) by mouth daily 30 capsule 2 04/25/2019 3 cholestyramine (QUESTRAN) 4 gram packet Take 1 packet by mouth 3 (three) times a day with meals 270 packet 3 09/04/2019 2 clotrimazole-betam ethasone (LOTRISONE) cream Apply 1 Application topically daily as needed (rash) 4 coenzyme [id number] 100-5 mg-unit capsuleIndications :supplement Take 1 tablet by mouth pacs specialist before breakfast 4 diphenoxylate-atro pine (LOMOTIL) [...] and 1 hour after each dose).?? Avoid [place]'s Wort, grapefruit products and [place] oranges while on treatment. placed on hold 09/26/22 for covid 01/29/2022 4 levothyroxine (Synthroid) 75 mcg tabletIndications: Hypothyroidism due to medication Take 1 tablet (75 mcg total) by mouth pacs specialist before breakfast 30 tablet 3 11/16/2021 [...] Manny Loya M.D., Ph.D Eren Cr MD [facility] PROCEDURES Final Resul t documented in [...] 02/02/2022 documented in this encounter Care Teams Manager Store Relationship Specialty Start Date End Date Julio César Briseno MD PCP - General 10/01/16 Eren Cr MD Referring Physician Medical Oncology 11/25/18 Yohana Bowen MD Radiation Oncologist Radiation Oncology 11/25/18 documented as of this encounter
--- OUTSIDE RECORDS SUMMARY | 2024-06-26 02:05 | XMS_ITS | Encounter Summary ---
Author Organization [facility] Address [address] [place] [address] Phone Care Team Providers Care Customer Servicer Name Role Phone Julio César Briseno MD Primary Care Provider [phone] Eren Cr MD Unavailable [phone] Yohana Bowen MD Unavailable Reason for Visit * Episode Based Medications (Routine) - Closed Specialty Diagnoses / Procedures Referred By Evelyne bowman Referred To Contact Diagnoses Neuro-endocrine carcinoma (HCC) Procedures study [id number] phase III cabozantinib Eren Cr MD [address] [facility] [address] [place] [address] Phone: tel: fax: [facility] [address] [facility] 7th [place] [address] Phone: tel: Referral ID Status Reason Start Date Expiration Date Visits Re quested Visits Authorized [id number] Closed 06/21/2021 06/26/2024 1 99 Encounter Details Date Type Department Care Team (Latest Contact Info) Description 01/29/2022 12:30 PM CDT Clinical Support 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
--- OUTSIDE RECORDS SUMMARY | 2024-06-26 02:05 | XMS_ITS | Encounter Summary ---
Author Organization [facility] Address [address] [place] [address] Phone Care Team Providers Care Medical Imaging Director Name Role Phone Julio César Briseno MD Primary Care Provider [phone] Eren Cr MD Unavailable [phone] Yohana Bowen MD Unavailable Reason for Referral * MRI/CAT/PET Scan (Routine) - Closed Specialty Diagnoses / Procedures Referred By Contellen t Referred To Contact Radiology Diagnoses Neuroendocrine carcinoma (HCC) Malignant neoplasm metastatic to liver (HCC) Bone metastasis Procedures CT chest abdomen pelvis with contrast Eren Cr MD [address] [place] [address] Phone: tel: fax: [address] [address] Referral ID Status Reason Start Date Expiration Date Visits Re quested Visits Authorized [id number] Closed 02/26/2022 03/28/2023 1 1 Encounter Details Date Type Department Care Team (Late st Contact Info) Description 02/26/2022 Orders Only [facility] Oncology [address] [place] [address] Eren Cr MD [address] [facility] [address] [place] [address] Neuroendocrine carcinoma (CMS/HCC) (HCC) (Primary Dx); Malignant [...] file 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 ??For reference segment 7 lesion (-[id number]) measures 2.3 x 1.9 cm, unchanged segment [...] hepatic metastases. For reference segment 7 lesion (-[id number]) measures 2.3 x 1.9 cm, unchanged segment [...] marrow documented in this encounter Care Teams Medical Imaging Director Relationship Specialty Start Date End Date Julio César Briseno MD PCP - General 10/01/16 Eren Cr MD Referring Physician Medical Oncology 11/25/18 Yohana Bowen MD Radiation Oncologist Radiation Oncology 11/25/18 documented as of this encounter
--- OUTSIDE RECORDS SUMMARY | 2024-06-26 02:05 | XMS_ITS | Encounter Summary ---
Author Organization [facility] Address [address] [place] [address] Phone Care Team Providers Care Hydrometeorology Teacher Name Role Phone Julio César Briseno MD Primary Care Provider [phone] Eren Cr MD Unavailable [phone] Yohana Bowen MD Unavailable Reason for Visit * Episode Based Medications (Routine) - Closed Specialty Diagnoses / Procedures Referred By Evelyne bowman Referred To Contact Diagnoses Neuro-endocrine carcinoma (HCC) Procedures study [id number] phase III cabozantinib Eren Cr MD [address] [facility] [address] [place] [address] Phone: tel: fax: [facility] [address] [facility] 7th [place] [address] Phone: tel: Referral ID Status Reason Start Date Expiration Date Visits Re quested Visits Authorized [id number] Closed 06/21/2021 06/26/2024 1 99 Encounter Details Date Type Department Care Team (Latest Contact Info) Description 02/22/2022 10:45 AM CDT Clinical Support [facility] Oncology [address] [place] [address] Neuro-endocrine carcinoma (CMS/HCC) (HCC) Social History Tobacco [...] on file 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
--- OUTSIDE RECORDS SUMMARY | 2024-06-26 02:05 | XMS_ITS | Encounter Summary ---
Author Organization [facility] Address [address] [place] [address] Phone Care Team Providers Care Clinical Rn Manager Name Role Phone Julio César Briseno MD Primary Care Provider Eren Cr MD Unavailable [phone] Yohana Bowen MD Unavailable Reason for Visit * Reason Comments Follow-up Encounter Details Date Type Department Care Team (Late st Contact Info) Description 03/07/2022 2:30 PM CDT Office Visit [facility] Obstetrics and Gynecology [address] [facility] Advanced Medicine 13th [place] [address] [place] [address] Oksana Rivas NP [address] [address] Neuroendocrine carcinoma (CMS/HCC) (HCC) (Primary Dx) Social [...] on file 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 Gender Identity Not on file Sexual [...] mg capsule Take 1 tablet by mouth sap data architect before breakfast cholecalciferol (VITAMIN D-3) 2,000 unit capsule Take 1 capsule (2,000 Units total) by mouth daily 30 capsule 2 cholestyramine (QUESTRAN) 4 gram packet Take 1 packet by mouth 3 (three) times a day with meals (Patient not taking: Reported on 10/19/2021) 270 packet 3 clotrimazole-betamethasone (LOTRISONE) cream clotrimazole-betamethasone 1 %-0.05 % topical cream APPLY EXTERNALLY TO ABDOMEN TWICE DAILY NEEDED coenzyme [id number] E 100-5 mg-unit capsule Take by mouth sap data architect before breakfast denosumab (Xgeva) 120 mg/1.7 mL [...] propionate 50 mcg/actuation nasal spray,suspension [id number] cabozantinib/placebo (/[id number]) 20 mg tablet Take 20 mg by mouth daily Takeon an empty stomach (no food for 2 hours before and 1 hour after each dose). Avoid [place]'s Wort,grapefruit products and [place] oranges while on treatment. levothyroxine (SYNTHROID) 75 mcg tablet TAKE 1 TABLET (75 MCG TOTAL) BY MOUTH 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 SERVICES PROJECT MANAGER BEFORE BREAKFAST 90 tablet 1 lidocaine-prilocaine (lidocaine-prilocaine) [...] per tablet Take 0.5 tablets by mouth sap data architect before breakfast decrease dosage to 0.5 tablet daily 05/14/[address] Briseno at office visit. ondansetron (ZOFRAN) 8 mg tablet Take 1 tablet (8 mg total) by mouth every 8 (eight) hours as needed for nausea or vomiting 20 tablet 3 ostomy supplies [facility] [place] and [...] documented in this encounter Care Teams Clinical Rn Manager Relationship Specialty Start Date End Date Julio César Briseno MD PCP - General 10/01/16 Eren Cr MD Referring Physician Medical Oncology 11/25/18 Yohana Bowen MD Radiation Oncologist Radiation Oncology 11/25/18 documented as of this encounter
--- OUTSIDE RECORDS SUMMARY | 2024-06-26 02:05 | XMS_ITS | Encounter Summary ---
Author Organization [facility] Healthcare Address [address] [place] [address] Care Team Providers Care Gun Barrel Finisher Name Role Phone Julio César Briseno MD Primary Care Provider [phone] Eren Cr MD Unavailable [phone] Yohana Bowen MD Unavailable Reason for Visit * Reason Comments OP Infusion Encounter Details Date Type Department Care Team (Latest Contact Info) Description 02/02/2022 4:30 PM CDT - 02/02/2022 11:59 PM CDT Hospital Encounter 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 Gender Identity Not on file [...] capsuleIndications :supplement Take 1 tablet by mouth frame expander before breakfast 07/04/2016 4 cholecalciferol (VITAMIN D-3) 2,000 unit capsule Take 1 capsule (2,000 Units total) by mouth daily 30 capsule 2 04/25/2019 3 cholestyramine (QUESTRAN) 4 gram packet Take 1 packet by mouth 3 (three) times a day with meals 270 packet 3 09/04/2019 2 clotrimazole-betam ethasone (LOTRISONE) cream Apply 1 Application topically daily as needed (rash) 4 coenzyme [id number] E 100-5 mg-unit capsuleIndications :supplement Take 1 tablet by mouth frame expander before breakfast 4 diphenoxylate-atro pine (LOMOTIL) 2.5-0.025 [...] dose).?? Avoid Jas's Wort, grapefruit products and [place] oranges while on treatment. placed on hold 09/26/22 for covid 01/29/2022 4 levothyroxine (Synthroid) 75 mcg tabletIndications: Hypothyroidism due to medication Take 1 tablet (75 mcg total) by mouth frame expander before breakfast 30 tablet 3 11/16/2021 2 [...] 4:30 PM CDT Patient arrived at the [facility] for hydration. VSS. PAC accessed prior to [...] LINE DRESSING 1 02/02/2022 [facility] [id number] 1 02/02 documented in this encounter Care Teams Gun Barrel Finisher Relationship Specialty Start Date End Date Julio César Briseno MD PCP - General 10/01/16 Eren Cr MD Referring Physician Medical Oncology 11/25/18 Yohana Bowen MD Radiation Oncologist Radiation Oncology 11/25/18 documented as of this encounter
--- OUTSIDE RECORDS SUMMARY | 2024-06-26 02:05 | XMS_ITS | Encounter Summary ---
Author Organization [facility] Address [address] [place] [address] Phone Care Team Providers Care Plant Controls Specialist Name Role Phone Julio César Briseno MD Primary Care Provider Eren Cr MD Unavailable [phone] Yohana Bowen MD Unavailable Encounter Details Date Type Department Care Team (Late st Contact Info) Description 02/07/2022 Orders Only [facility] Oncology [address] [place] [address] Eren Cr MD [address] [place], [place] [id number] Social History Tobacco Use Types Packs/Day Years [...] file 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 Gender Identity Not on file Sexual Orientation Straight 02/19/2021 9: 29 AM CDT Occupation Industry Job Start Date Job End Date retired Not on file Not on file Not on file documented as of this encounter Plan of Treatment Not on file documented as of this encounter Visit Diagnoses Not on filedocumented in this encounter Care Teams Plant Controls Specialist Relationship Specialty Start Date End Date Julio César Briseno MD PCP - General 10/01/16 Eren Cr MD Referring Physician Medical Oncology 11/25/18 Yohana Bowen MD Radiation Oncologist Radiation Oncology 11/25/18 documented as of this encounter
--- OUTSIDE RECORDS SUMMARY | 2024-06-26 02:05 | XMS_ITS | Encounter Summary ---
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 Gender Identity Not on file Sexual Orientation [...] capsuleIndications :supplement Take 1 tablet by mouth house father before breakfast 07/04/2016 4 cholecalciferol (VITAMIN D-3) 2,000 unit capsule Take 1 capsule (2,000 Units total) by mouth daily 30 capsule 2 04/25/2019 3 cholestyramine (QUESTRAN) 4 gram packet Take 1 packet by mouth 3 (three) times a day with meals 270 packet 3 09/04/2019 2 clotrimazole-betam ethasone (LOTRISONE) cream Apply 1 Application topically daily as needed (rash) 4 coenzyme [id number]-sxcblyj E 100-5 mg-unit capsuleIndications :supplement Take 1 tablet by mouth house father before breakfast 4 diphenoxylate-atro pine (LOMOTIL) 2.5-0.025 [...] and 1 hour after each dose).?? Avoid [place]'s Wort, grapefruit products and [place] oranges while on treatment. placed on hold 09/26/22 for covid 01/29/2022 4 levothyroxine (SYNTHROID) 75 mcg tabletIndications: Hypothyroidism due to medication TAKE 1 TABLET (75 MCG TOTAL) BY MOUTH CISCO NETWORK ARCHITECT BEFORE BREAKFAST 90 tablet 1 02/22/2022 2 [...] Free T4 1.58 0.90 - 1.70 ng/dL [facility] Blood 02/22/2022 10:5 5 AM CDT 02/22/2022 12:41 PM CDT Narrative [facility] - 02/22/2022 1:35 PM CDT This test was reflexed from a TSH result. Eren Cr MD LAB BLOOD ORDERABLES Edited R esult - Final [facility] [place] [address] * (ABNORMAL) TSH reflex to free T4 (02/22/2022 10:55 AM CDT) Pathologist [facility] TSH 6.09(H) 0.30 - 4.20 mcIUnit/mL [facility] Blood 02/22/2022 10:5 5 AM CDT 02/22/2022 12:37 PM CDT Eren Cr MD LAB BLOOD ORDERABLES Final Re sult [facility] [place] [address] * (ABNORMAL) eGFR (02/22/2022 10:55 AM CDT) [...] ORDERABLES Final Re sult [facility] [place] [address] * (ABNORMAL) Differential, auto (02/22/2022 10:55 AM CDT) Neutrophil abs 2.7 1.7 - 6.5 K/cumm [facility] Comment:Testing performed by : [facility], [address] [place] [id number] Imm gran abs 0.0 0.0 - 0.1 K/cumm [facility] Lymphocyte abs 0.5(L) 0.8 - 3.3 K/cumm [facility] Monocyte abs 0.4 0.2 - 0.8 K/cumm [facility] Eosinophil abs 0.3 0.0 - 0.5 K/cumm [facility] Basophil abs 0.0 0.0 - 0.1 K/cumm [facility] Neutrophil pct 70.0 % [facility] Comment: Interpretive Data Percent cell count reference ranges are not reported, since discordance with absolute values may lead to misinterpretation of CBC data. Current Interpretive Data was last revised on 2017. Imm gran pct 0.3 % [facility] Comment: Interpretive Data Percent cell count reference ranges are not reported, since discordance with absolute values may lead to misinterpretation of CBC data. Current Interpretive Data was last revised on 2017. Lymphocyte pct 12.6 % [facility] Comment: Interpretive Data Percent cell count reference ranges are not reported, since discordance with absolute values may lead to misinterpretation of CBC data. Current Interpretive Data was last revised on 2017. Monocyte pct 9.7 % [facility] Comment: Interpretive Data Percent cell count reference ranges are not reported, since discordance with absolute values may lead to misinterpretation of CBC data. Current Interpretive Data was last revised on 2017. Eosinophil pct 7.1 % [facility] Comment: Interpretive Data Percent cell count reference ranges are not reported, since discordance with absolute values may lead to misinterpretation of CBC data. Current Interpretive Data was last revised on 2017. Basophil pct 0.3 % [facility] Comment: Interpretive Data Percent cell count reference ranges are not reported, since discordance with absolute values may lead to misinterpretation of CBC data. Current Interpretive Data was last revised on 2017. Blood 02/22/2022 10:5 5 AM CDT 02/22/2022 10:57 AM CDT us Eren Cr MD LAB BLOOD ORDERABLES Final Re sult [facility] [place] [address] * Magnesium (02/22/2022 10:55 AM CDT) Magnesium 1.7 1.4 - 2.5 mg/dL [facility] Comment:Testing performed by : [facility], [address] [place] [address] Blood 02/22/2022 10:5 5 AM CDT 02/22/2022 10:57 AM CDT us Eren Cr MD LAB BLOOD ORDERABLES Final Re sult [facility] [place] [address] * (ABNORMAL) Lipid panel (02/22/2022 10:55 AM CDT) Cholesterol 174 30 - 199 mg/dL [facility] [...] on 2018. Triglycerides 217(H) <=149 mg/dL [facility] Comment: Interpretive [...] revised on 2018. HDL 55 >=40 mg/dL [facility] Comment: Interpretive Data Ages < [...] 2018. LDL, calculated 76 <=129 mg/dL [facility] Comment: Interpretive [...] revised on 2018. Non-HDL Cholesterol 119 mg/dL [facility] Comment: Interpretive Data Ages [...] 2018. Chol/HDL ratio 3 [facility] Blood 02/22/2022 10:5 5 AM CDT 02/22/2022 12:37 PM CDT Eren Cr MD LAB BLOOD ORDERABLES Final Re sult Performing Organization Address City/[facility]/ZIP Co de Phone Number [facility] Department [place] [address] * Phosphorus (02/22/2022 10:55 AM CDT) Phosphorus, pl 2.4 2.3 - 4.5 mg/dL [facility] Comment:Testing performed by : [facility], [address] [place] [address] Blood 02/22/2022 10:5 5 AM CDT 02/22/2022 10:57 AM CDT Eren Cr MD LAB BLOOD ORDERABLES Final Re sult Performing Organization Address City/[facility] Co de Phone Number [facility] Department of Laboratories [place], [place] [id number] * (ABNORMAL) Vitamin D 25 hydroxy (02/22/2022 10:55 AM CDT) Pathologist [facility] Vitamin D 25-OH 26(L) 30 - 80 ng/mL [facility] Blood 02/22/2022 10:5 5 AM CDT 02/22/2022 12:37 PM CDT Eren Cr MD LAB BLOOD ORDERABLES Final Re sult [facility] [place] [address] * (ABNORMAL) CBC with auto differential (02/22/2022 10:55 AM CDT) [facility] WBC 3.9 3.8 - 9.9 K/cumm [facility] Comment:Testing performed by : [address] [address] Hgb 11.0(L) 11.9 - 15.5 g/dL [facility] Comment:Testing performed by : [address] [address] Hct 32.7(L) 35.6 - 45.5 % [facility] Comment:Testing performed by : [address] [address] Plt 98(L) 150 - 400 K/cumm [facility] Comment:Testing performed by : [address] [address] MPV 10.7 9.1 - 12.3 fL [facility] RBC 3.25(L) 3.90 - 5.20 M/cumm [facility] MCV 100.6(H) 81.3 - 96.4 fL [facility] MCH 33.8(H) 27.1 - 33.3 pg [facility] MCHC 33.6 32.3 - 35.7 g/dL [facility] RDW CV 13.6 11.1 - 14.9 % [facility] RDW SD 50.1(H) 35.7 - 48.1 fL [facility] NRBC abs 0.00 0.00 - 0.01 K/cumm [facility] Blood 02/22/2022 10:5 5 AM CDT 02/22/2022 10:57 AM CDT us Eren Cr MD LAB BLOOD ORDERABLES Final Re sult [facility] [place] [address] * (ABNORMAL) Comprehensive metabolic panel (02/22/2022 10:55 AM CDT) Sodium 143 135 - 145 mmol/L [facility] Comment:Testing performed by : [facility], [address] [place] [address] Potassium, pl 4.2 3.3 - 4.9 mmol/L [facility] Chloride 109 97 - 110 mmol/L [facility] CO2 27 22 - 32 mmol/L [facility] Anion gap 7 2 - 15 mmol/L [facility] BUN 14 8 - 25 mg/dL [facility] Creatinine 1.12(H) 0.60 - 1.10 mg/dL [facility] Glucose 94 70 - 199 mg/dL [facility] Comment: [...] 2017. Calcium 10.2 8.5 - 10.3 mg/dL [facility] Bilirubin, total 0.7 0.1 - 1.2 mg/dL [facility] Protein, pl 6.4(L) 6.5 - 8.5 g/dL [facility] Albumin 4.0 3.5 - 5.0 g/dL [facility] Alk phos 68 40 - 130 Units/L [facility] ALT 23 7 - 45 Units/L [facility] AST 33 10 - 45 Units/L [facility] Blood 02/22/2022 10:5 5 AM CDT 02/22/2022 10:57 AM CDT Eren Cr MD LAB BLOOD ORDERABLES Final Re sult [facility] [place] [address] * (ABNORMAL) Chromogranin A (02/22/2022 10:55 AM CDT) Chromogranin A 874(H) <93 ng/mL [facility] Comment: Impaired renal [...] a homogeneous time-resolved immunofluorescent assay manufactured by [employer] and performed on the Rigel Kryptor Compact Plus. ? Values obtained with different assay methods or kits may be different and cannot be used interchangeably. ? Test results cannot be interpreted as absolute evidence for the presence or absence of malignant disease. Test Performed by: [facility] - [address] [address] Supervisor Stone: Immanuel Novak M.D. 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
--- OUTSIDE RECORDS SUMMARY | 2024-06-26 02:05 | XMS_ITS | Encounter Summary ---
Author Organization [facility] Address [address] [place] [address] Phone Care Team Providers Care Mapping Pilot Name Role Phone Julio César Briseno MD Primary Care Provider Eren Cr MD Unavailable [phone] Yohana Bowen MD Unavailable Encounter Details Date Type Department Care Team (Late st Contact Info) Description 01/25/2022 Orders Only [facility] Oncology [address] [facility] Advanced Medicine 7th [place] [address] [place] [address] Eren Cr MD [address] [facility] [address] [place] [address] Neuro-endocrine carcinoma (CMS/HCC) (HCC) (Primary Dx); Dehydration [...] file 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
--- OUTSIDE RECORDS SUMMARY | 2024-06-26 02:05 | XMS_ITS | Encounter Summary ---
Author Organization [facility] Address [address] [place] [address] Phone Care Team Providers Care Work Measurement Engineer Name Role Phone Julio César Briseno MD Primary Care Provider Eren Cr MD Unavailable [phone] Yohana Bowen MD Unavailable Encounter Details Date Type Department Care Team (Late st Contact Info) Description 02/01/2022 Orders Only [facility] Oncology [address] [facility] 7th [place] [address] [place] [address] Eren Cr MD [address] [facility] [address] [place] [address] Social History Tobacco Use Types Packs/Day Years [...] file 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 Gender Identity Not on file Sexual Orientation Straight 02/19/2021 9: 29 AM CDT Occupation Industry Job Start Date Job End Date retired Not on file Not on file Not on file documented as of this encounter Plan of Treatment Not on file documented as of this encounter Visit Diagnoses Not on filedocumented in this encounter Care Teams Work Measurement Engineer Relationship Specialty Start Date End Date Julio César Briseno MD PCP - General 10/01/16 Eren Cr MD Referring Physician Medical Oncology 11/25/18 Yohana Bowen MD Radiation Oncologist Radiation Oncology 11/25/18 documented as of this encounter
--- OUTSIDE RECORDS SUMMARY | 2024-06-26 02:05 | XMS_ITS | Encounter Summary ---
Author Organization [facility] Address [address] [place] [address] Phone Care Team Providers Care Blocking Machine Operator Name Role Phone Julio César Briseno MD Primary Care Provider Eren Cr MD Unavailable [phone] Yohana Bowen MD Unavailable Encounter Details Date Type Department Care Team (Late st Contact Info) Description 01/29/2022 Orders Only [facility] Oncology [address] [facility] 7th [place] [address] [place] [address] Eren Cr MD [address] [facility] [address] [place] [address] Social History Tobacco Use Types Packs/Day Years [...] file 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 Gender Identity Not on file Sexual Orientation Straight 02/19/2021 9: 29 AM CDT Occupation Industry Job Start Date Job End Date retired Not on file Not on file Not on file documented as of this encounter Plan of Treatment Not on file documented as of this encounter Visit Diagnoses Not on filedocumented in this encounter Care Teams Blocking Machine Operator Relationship Specialty Start Date End Date Julio César Briseno MD PCP - General 10/01/16 Eren Cr MD Referring Physician Medical Oncology 11/25/18 Yohana Bowen MD Radiation Oncologist Radiation Oncology 11/25/18 documented as of this encounter
--- OUTSIDE RECORDS SUMMARY | 2024-06-26 02:05 | XMS_ITS | Encounter Summary ---
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) Procedures [place] OCTREOTIDE INJECTION, DEPOT Octreotide 28 Day Cycles - Carcinoid Eren Cr MD [address] [facility] [address] [place] [address] Phone: tel: fax: [address] [address] Phone: tel: fax: Referral ID Status Reason Start Date Expiration Date V isits Requested Visits Authorized [id number] Authorized 11/28/2017 02/05/2025 1 150 Encounter Details Date Type Department Care Team (Late st Contact Info) Description 02/22/2022 1:45 PM CDT Infusion [facility] Oncology [address] [place] [address] Neuroendocrine carcinoma (CMS/HCC) (HCC); Malignant neoplasm metastatic [...] 02/05 documented in this encounter Care Teams Flight Kitchen Manager Relationship Specialty Start Date End Date Julio César Briseno MD PCP - General 10/01/16 Eren Cr MD Referring Physician Medical Oncology 11/25/18 Yohana Bowen MD Radiation Oncologist Radiation Oncology 11/25/18 documented as of this encounter
--- OUTSIDE RECORDS SUMMARY | 2024-06-26 02:05 | XMS_ITS | Encounter Summary ---
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
--- OUTSIDE RECORDS SUMMARY | 2024-06-26 02:05 | XMS_ITS | Encounter Summary ---
Author Organization [facility] Healthcare Address [address] [place] [address] Care Team Providers Care Manager Membership Name Role Phone Julio César Briseno MD Primary Care Provider [phone] Eren Cr MD Unavailable [phone] Yohana Bowen MD Unavailable Reason for Visit * Reason Comments OP Infusion NS Encounter Details Date Type Department Care Team (Latest Contact Info) Description 02/07/2022 11:00 AM CDT - 02/07/2022 11:59 PM CDT Hospital Encounter [facility] ([facility]) [address] [place] [address] Neuroendocrine carcinoma (CMS/HCC) (HCC) (Primary Dx) [...] on file 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 Gender Identity Not on file Sexual [...] capsuleIndications :supplement Take 1 tablet by mouth weighmaster lead before breakfast 07/04/2016 4 cholecalciferol (VITAMIN D-3) 2,000 unit capsule Take 1 capsule (2,000 Units total) by mouth daily 30 capsule 2 04/25/2019 3 cholestyramine (QUESTRAN) 4 gram packet Take 1 packet by mouth 3 (three) times a day with meals 270 packet 3 09/04/2019 2 clotrimazole-betam ethasone (LOTRISONE) cream Apply 1 Application topically daily as needed (rash) 4 coenzyme [id number]-[id number] E 100-5 mg-unit capsuleIndications :supplement Take 1 tablet by mouth weighmaster lead before breakfast 4 diphenoxylate-atro pine (LOMOTIL) 2.5-0.025 [...] dose).?? Avoid Jas's Wort, grapefruit products and [place] oranges while on treatment. placed on hold 09/26/22 for covid 01/29/2022 4 levothyroxine (Synthroid) 75 mcg tabletIndications: Hypothyroidism due to medication Take 1 tablet (75 mcg total) by mouth weighmaster lead before breakfast 30 tablet 3 11/16/2021 2 [...] 02/07/2022 11:00 AM CDT Patient arrived to [facility] for IVF. Plan of care [...] mL/hr documented in this encounter Care Teams Manager Membership Relationship Specialty Start Date End Date Julio César Briseno MD PCP - General 10/01/16 Eren Cr MD Referring Physician Medical Oncology 11/25/18 Yohana Bowen MD Radiation Oncologist Radiation Oncology 11/25/18 documented as of this encounter
--- OUTSIDE RECORDS SUMMARY | 2024-06-26 02:05 | XMS_ITS | Encounter Summary ---
Author Organization [facility] Healthcare Address [address] [place] [address] Care Team Providers Care Tmh Teacher Name Role Phone Julio César Briseno MD Primary Care Provider [phone] Eren Cr MD Unavailable [phone] Yohana Bowen MD Unavailable Encounter Details Date Type Department Care Team (Latest Contact Info) Description 02/01/2022 1:58 PM CDT - 02/01/2022 11:59 PM CDT Hospital Encounter [facility] [address] [place] [address] Neuro-endocrine carcinoma (CMS/HCC) (HCC); Elevated TSH Discharge [...] on file 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 Gender Identity Not on file Sexual [...] capsuleIndications :supplement Take 1 tablet by mouth account executive agribusiness before breakfast 07/04/2016 4 cholecalciferol (VITAMIN D-3) 2,000 unit capsule Take 1 capsule (2,000 Units total) by mouth daily 30 capsule 2 04/25/2019 3 cholestyramine (QUESTRAN) 4 gram packet Take 1 packet by mouth 3 (three) times a day with meals 270 packet 3 09/04/2019 2 clotrimazole-betam ethasone (LOTRISONE) cream Apply 1 Application topically daily as needed (rash) 4 coenzyme [id number]-[id number] E 100-5 mg-unit capsuleIndications :supplement Take 1 tablet by mouth account executive agribusiness before breakfast 4 diphenoxylate-atro pine (LOMOTIL) 2.5-0.025 [...] dose).?? Avoid Jas's Wort, grapefruit products and [place] oranges while on treatment. placed on hold 09/26/22 for covid 01/29/2022 4 levothyroxine (Synthroid) 75 mcg tabletIndications: Hypothyroidism due to medication Take 1 tablet (75 mcg total) by mouth account executive agribusiness before breakfast 30 tablet 3 11/16/2021 2 [...] Free T4 0.85(L) 0.90 - 1.70 ng/dL [facility] Blood 02/01/2022 2:10 PM CDT 02/01/2022 3:02 PM CDT Eren Cr MD LAB BLOOD ORDERABLES Final Re sult [facility] [place] [address] * (ABNORMAL) T3, free (02/01/2022 2:10 PM CDT) Free T3 1.8(L) 2.0 - 4.4 pg/mL [facility] Blood 02/01/2022 2:10 PM CDT 02/01/2022 3:02 PM CDT us Eren Cr MD LAB BLOOD ORDERABLES Final Re sult [facility] Department [place] [address] documented in this encounter Visit Diagnoses Diagnosis Neuro-endocrine carcinoma (HCC) Other malignant neoplasm of unspecified site Elevated TSH Other abnormal blood chemistry documented in this encounter Care Teams Tmh Teacher Relationship Specialty Start Date End Date Julio César Briseno MD PCP - General 10/01/16 Eren Cr MD Referring Physician Medical Oncology 11/25/18 Yohana Bowen MD Radiation Oncologist Radiation Oncology 11/25/18 documented as of this encounter
--- OUTSIDE RECORDS SUMMARY | 2024-06-26 02:05 | XMS_ITS | Encounter Summary ---
Author Organization [facility] Address [address] [place] [address] Phone Care Team Providers Care Animal Skinner Name Role Phone Julio César Briseno MD Primary Care Provider Eren Cr MD Unavailable [phone] Yohana Bowen MD Unavailable Encounter Details Date Type Department Care Team (Late st Contact Info) Description 01/29/2022 Orders Only [facility] Oncology [address] [facility] Advanced [facility] 7th [place] [address] [place] [address] Eren Cr MD [address] [facility] [address] [place] [address] Social History Tobacco Use Types Packs/Day Years [...] file Legal 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
--- OUTSIDE RECORDS SUMMARY | 2024-06-26 02:05 | XMS_ITS | Encounter Summary ---
Author Organization [facility] Address [address] [place] [address] Phone Care Team Providers Care Latex Fashions Designer Name Role Phone Julio César Briseno MD Primary Care Provider [phone] Eren Cr MD Unavailable [phone] Yohana Bowen MD Unavailable Encounter Details Date Type Department Care Team (Latest Contact Info) Description 02/01/2022 1:30 PM CDT Clinical Support [facility] Oncology 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
--- OUTSIDE RECORDS SUMMARY | 2024-06-26 02:05 | XMS_ITS | Encounter Summary ---
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 Eren Cr MD [address] [facility] [address] [place] [address] Phone: tel: fax: [facility] [address] [facility] Advanced [facility] 7th [place] [address] Phone: tel: Referral ID Status Reason Start Date Expiration Date Visits Re quested Visits Authorized [id number] Closed 06/21/2021 06/26/2024 1 99 Encounter Details Date Type Department Care Team (Latest Contact Info) Description 02/22/2022 12:15 PM CDT Research Med Pick-Up/CTRU Battery Charger Conveyor Line [facility] Oncology [address] [place] [address], [place] [address] Neuro-endocrine carcinoma (CMS/HCC) (HCC) (Primary Dx) Social [...] file 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 Gender Identity Not on file Sexual [...] Date First Ordered Date INV-[facility] cabozantinib/pl acebo (2018-02-122/[id number]) tablet 20 mg 1 02/22/2022 Nursing Count Last Ordered Date First Orde red Date ONCBCN STUDY COMMUNICATION 2 1 02/22/2022 ONCBCN TREATMENT PARAMETERS 1 1 02/22/2022 Appointment Requests Count Last Ordered Date Fi rst Ordered Date ONCBCN TAKE HOME STUDY DRUG APPT 1 02/23/20 22 documented in this encounter Care Teams Hand Clerical Verifier Relationship Specialty Start Date End Date Julio César Briseno MD PCP - General 10/01/16 Eren Cr MD Referring Physician Medical Oncology 11/25/18 Yohana Bowen MD Radiation Oncologist Radiation Oncology 11/25/18 documented as of this encounter
--- OUTSIDE RECORDS SUMMARY | 2024-06-26 02:05 | XMS_ITS | Encounter Summary ---
Author Organization [facility] Address [address] [place] [address] Phone Care Team Providers Care Photo Printer Name Role Phone Julio César Briseno MD Primary Care Provider [phone] Eren Cr MD Unavailable [phone] Yohana Bowen MD Unavailable Encounter Details Date Type Department Care Team (Late st Contact Info) Description 02/22/2022 Orders Only [facility] Oncology [address] [place] [address] Eren Cr MD [address] [facility] [address] [place], [place] [id number] 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) Social [...] on file Legal 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 Gender Identity Not on file Sexual Orientation Straight 02/19/2021 9: 29 AM CDT Occupation Industry Job Start Date Job End Date retired Not on file Not on file Not on file documented as of this encounter Plan of Treatment Not on file documented as of this encounter Visit Diagnoses Diagnosis Hypothyroidism due to medication- Primary documented in this encounter Care Teams Photo Printer Relationship Specialty Start Date End Date Julio César Briseno MD PCP - General 10/01/16 Eren rC MD Referring Physician Medical Oncology 11/25/18 Yohana Bowen MD Radiation Oncologist Radiation Oncology 11/25/18 documented as of this encounter
--- OUTSIDE RECORDS SUMMARY | 2024-06-26 02:05 | XMS_ITS | Encounter Summary ---
Author Organization [facility] Healthcare Address [address] [place] [address] Care Team Providers Care Electrician'S Helper Name Role Phone Julio César Briseno MD Primary Care Provider Eren Cr MD Unavailable [phone] Yohana Bowen MD Unavailable Reason for Visit * Reason Comments OP Infusion Normal saline infusi on - 1 liter Encounter Details Date Type Department Care Team (Latest Contact Info) Description 02/14/2022 8:17 AM CDT - 02/14/2022 11:59 PM CDT Hospital Encounter [facility] ([facility]) [address] [place] [address] Dehydration (Primary Dx); Neuroendocrine carcinoma (CMS/HCC) [...] file Legal 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 Female 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 Gender Identity Not on file Sexual [...] capsuleIndications :supplement Take 1 tablet by mouth bond broker before breakfast 07/04/2016 4 cholecalciferol (VITAMIN D-3) 2,000 unit capsule Take 1 capsule (2,000 Units total) by mouth daily 30 capsule 2 04/25/2019 3 cholestyramine (QUESTRAN) 4 gram packet Take 1 packet by mouth 3 (three) times a day with meals 270 packet 3 09/04/2019 2 clotrimazole-betam ethasone (LOTRISONE) cream Apply 1 Application topically daily as needed (rash) 4 coenzyme P49-cnwnarc E 100-5 mg-unit capsuleIndications :supplement Take 1 tablet by mouth bond broker before breakfast 4 diphenoxylate-atro pine (LOMOTIL) 2.5-0.025 [...] and 1 hour after each dose).?? Avoid [place]'s Wort, grapefruit products and [place] oranges while on treatment. placed on hold 09/26/22 for covid 01/29/2022 4 levothyroxine (Synthroid) 75 mcg tabletIndications: Hypothyroidism due to medication Take 1 tablet (75 mcg total) by mouth bond broker before breakfast 30 tablet 3 11/16/2021 2 levothyroxine (SYNTHROID) 75 mcg tabletIndications: Hypothyroidism due to medication TAKE 1 TABLET (75 MCG TOTAL) BY MOUTH RADIAL ARM SAW OPERATOR BEFORE BREAKFAST 90 tablet 1 02/22/2022 2 [...] 02/14/2022 8:30 AM CDT Oncology Nursing Note [facility] La Chung is [...] 02/14/2022 documented in this encounter Care Teams Electrician'S Helper Relationship Specialty Start Date End Date Julio César Briseno MD PCP - General 10/01/16 Eren Cr MD Referring Physician Medical Oncology 11/25/18 Yohana Bowen MD Radiation Oncologist Radiation Oncology 11/25/18 documented as of this encounter
--- OUTSIDE RECORDS SUMMARY | 2024-06-26 02:05 | XMS_ITS | Encounter Summary ---
Author Organization [facility] Address [address] [place] [address] Phone Care Team Providers Care Complaint Evaluation Supervisor Name Role Phone Julio César Briseno MD Primary Care Provider Eren Cr MD Unavailable [phone] Yohana Bowen MD Unavailable Encounter Details Date Type Department Care Team (Late st Contact Info) Description 02/06/2022 Orders Only [facility] Oncology [address] [place] [address] Eren Cr MD [address] [place], [place] [id number] Social History Tobacco Use Types Packs/Day Years [...] on file 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 Gender Identity Not on file Sexual Orientation Straight 02/19/2021 9: 29 AM CDT Occupation Industry Job Start Date Job End Date retired Not on file Not on file Not on file documented as of this encounter Plan of Treatment Not on file documented as of this encounter Visit Diagnoses Not on filedocumented in this encounter Care Teams Complaint Evaluation Supervisor Relationship Specialty Start Date End Date Julio César Briseno MD PCP - General 10/01/16 Eren Cr MD Referring Physician Medical Oncology 11/25/18 Yohana Bowen MD Radiation Oncologist Radiation Oncology 11/25/18 documented as of this encounter
--- OUTSIDE RECORDS SUMMARY | 2024-06-26 02:05 | XMS_ITS | Encounter Summary ---
Author Organization 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) Procedures [place] DENOSUMAB INJECTION DENOSUMAB (XGEVA) Eren Cr MD [address] [place] [address] Phone: tel: fax: [facility] and [facility] [address] [facility] Advanced Medicine 7th [place] [address] Phone: tel: Referral ID Status Reason Start Date Expiration Date V isits Requested Visits Authorized [id number] Authorized 03/02/2019 10/06/2024 1 60 Encounter Details Date Type Department Care Team (Late st Contact Info) Description 03/15/2022 4:00 PM CDT Infusion [facility] Oncology [facility] 7th [place] [address] Dehydration (Primary Dx); Neuroendocrine carcinoma (CMS/HCC) (HCC) [...] on file 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
--- OUTSIDE RECORDS SUMMARY | 2024-06-26 02:05 | XMS_ITS | Encounter Summary ---
Author Organization [facility] Address [address] [place] [address] Phone Care Team Providers Care Garment Folder Name Role Phone Julio César Briseno MD Primary Care Provider [phone] Eren Cr MD Unavailable [phone] Yohana Bowen MD Unavailable Encounter Details Date Type Department Care Team (Late st Contact Info) Description 02/01/2022 Orders Only [facility] Oncology [address] [facility] Advanced Medicine 7th [place] [address] [place] [address] Eren Cr MD [address] [facility] [address] [place] [address] Low phosphate levels (Primary Dx); Neuro-endocrine carcinoma [...] on file Legal Sex Female 2:41 PM 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
--- OUTSIDE RECORDS SUMMARY | 2024-06-26 02:05 | XMS_ITS | Encounter Summary ---
Author Organization [facility] Address [address] [place] [address] Phone Care Team Providers Care Machine Precision Engraver Name Role Phone Julio César Briseno MD Primary Care Provider Eren Cr MD Unavailable [phone] Yohana Bowen MD Unavailable Encounter Details Date Type Department Care Team (Late st Contact Info) Description 01/25/2022 Orders Only [facility] Oncology [address] [facility] Advanced Medicine 7th [place] [address] [place] [address] Eren Cr MD [address] [facility] [address] [place] [address] Neuro-endocrine carcinoma (CMS/HCC) (HCC) (Primary Dx) Social [...] on file 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
--- OUTSIDE RECORDS SUMMARY | 2024-06-26 02:05 | XMS_ITS | Encounter Summary ---
Author Organization [facility] Address [address] [place] [address] Phone Care Team Providers Care Warehouse Receiving Supervisor Name Role Phone Julio César Briseno MD Primary Care Provider [phone] Eren Cr MD Unavailable [phone] Yohana Bowen MD Unavailable Reason for Visit * Episode Based Medications (Routine) - Authorized Specialty Diagnoses / Procedures Referred By Contellen t Referred To Contact Diagnoses Hypomagnesemia Eren Cr MD [address] [facility] [address] [place] [address] Phone: tel: fax: [facility] 7th [place] [address] Phone: tel: Referral ID Status Reason Start Date Expiration Date V isits Requested Visits Authorized [id number] Authorized 11/13/2021 04/01/2025 1 30 Encounter Details Date Type Department Care Team (Late st Contact Info) Description 01/18/2022 3:00 PM CDT Infusion [facility] Oncology [address] [place] [address] Advanced Medicine 7th [place] [address] Malignant neoplasm metastatic to liver [...] 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 Gender Identity Not on file Sexual Orientation Straight 02/19/2021 9: 29 AM CDT Occupation Industry Job Start Date Job End Date retired Not on file Not on file Not on file documented as of this encounter Nursing Notes * Carly Fuentes RN - 01/18/2022 3:00 PM CDT Oncology Nursing Note [facility] ON[facility] La Chung is a 71 [...] 01/18/2022 documented in this encounter Care Teams Warehouse Receiving Supervisor Relationship Specialty Start Date End Date Julio César Briseno MD PCP - General 10/01/16 Eren Cr MD Referring Physician Medical Oncology 11/25/18 Yohana Bowen MD Radiation Oncologist Radiation Oncology 11/25/18 documented as of this encounter
--- OUTSIDE RECORDS SUMMARY | 2024-06-26 02:05 | XMS_ITS | Encounter Summary ---
Author Organization [facility] Address [address] [place] [address] Phone Care Team Providers Care Sales Donor Recruitment Representative Name Role Phone Julio César Briseno MD Primary Care Provider [phone] Eren Cr MD Unavailable [phone] Yohana Bowen MD Unavailable Reason for Visit * Reason Onset Date Comments request for IVF 02/02/2022 Encounter Details Date Type Department Care Team (Late st Contact Info) Description 02/02/2022 Telephone [facility] Oncology [address] [place] [address] Eren Cr MD [address] [place], [place] [id number] request for IVF Social History Tobacco Use [...] on file 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
--- OUTSIDE RECORDS SUMMARY | 2024-06-26 02:05 | XMS_ITS | Encounter Summary ---
Author Organization [facility] Address [address] [place] [address] Phone Care Team Providers Care Powerhouse Tender Name Role Phone Julio César Briseno MD Primary Care Provider [phone] Eren Cr MD Unavailable [phone] Yohana Bowen MD Unavailable Encounter Details Date Type Department Care Team (Late st Contact Info) Description 01/31/2022 Orders Only [facility] Oncology [address] [facility] 7th [place] [address] [place] [address] Eren Cr MD [address] [facility] [address] [place] [address] Neuro-endocrine carcinoma (CMS/HCC) (HCC) (Primary Dx); Elevated [...] file 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
--- OUTSIDE RECORDS SUMMARY | 2024-06-26 02:06 | XMS_ITS | Encounter Summary ---
Author Organization [facility] Address [address] [place] [address] Phone Care Team Providers Care Shadowgraph Scale Operator Name Role Phone Julio César Briseno MD Primary Care Provider Eren Cr MD Unavailable [phone] Yohana Bowen MD Unavailable Encounter Details Date Type Department Care Team (Latest Contact Info) Description 01/16/2022 9:30 AM CDT Clinical Support [facility] Oncology [address] [facility] 7th [place] [address] [place] [address] Neuroendocrine carcinoma (CMS/HCC) (HCC) (Primary Dx); Malignant [...] file Legal Sex Female 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
--- OUTSIDE RECORDS SUMMARY | 2024-06-26 02:06 | XMS_ITS | Encounter Summary ---
Author Organization [facility] Address [address] [place] [address] Phone Care Team Providers Care Razor Grinder Name Role Phone Julio César Briseno MD Primary Care Provider [phone] Eren Cr MD Unavailable [phone] Yohana Bowen MD Unavailable Encounter Details Date Type Department Care Team (Late st Contact Info) Description 01/18/2022 Orders Only [facility] Oncology [address] [facility] 7th [place] [address] [place] [address] Eren Cr MD [address] [facility] [address] [place] [address] Malignant neoplasm metastatic to liver (CMS/HCC) (HCC) [...] on file 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 Gender Identity Not on file Sexual [...] performed by : [facility], [address] [place] [phone] Potassium, pl 4.0 3.3 - 4.9 mmol/L [facility] Comment:Testing performed by : [facility], [address] [place] [phone] Chloride 108 97 - 110 mmol/L CERNER BJ Comment:Testing performed by : [facility], [address] [place] [phone] CO2 24 22 - 32 mmol/L CERNER BJ Comment:Testing performed by : [address] [address] Anion gap 6 2 - 15 mmol/L CERNER BJ Comment:Testing performed by : [address] [address] BUN 23 8 - 25 mg/dL CERNER BJ Comment:Testing performed by : [facility], [address] [place] [phone] Creatinine 1.70(H) 0.60 - 1.10 mg/dL CERNER BJ Comment:Testing performed by : [address] [address] Glucose 107 70 - 199 mg/dL CERNER [...] last revised 2017. Testing performed by: [facility], [address] [facility] [address] Calcium 9.9 8.5 - 10.3 mg/dL [facility] Comment:Testing performed by : [facility], [address] [facility] [address] Blood 01/18/2022 2:04 PM CDT 01/18/2022 2:05 PM CDT us Eren Cr MD LAB BLOOD ORDERABLES Final Re sult [facility] One [facility] Department of Laboratories [place], [place] [id number] documented in this encounter Visit Diagnoses Diagnosis Malignant neoplasm metastatic to liver (HCC)- Primary Neuro-endocrine carcinoma (HCC) Other malignant neoplasm of unspecified site Dehydration documented in this encounter Orders Appointment Requests Count Last Ordered Date Fi rst Ordered Date ONCBCN INFUSION APPT REQUEST 1 01/18/2022 ONCBCN LAB APPOINTMENT 1 01/18/2022 documented in this encounter Care Teams Razor Grinder Relationship Specialty Start Date End Date Julio César Briseno MD PCP - General 10/01/16 Eren Cr MD Referring Physician Medical Oncology 11/25/18 Yohana Bowen MD Radiation Oncologist Radiation Oncology 11/25/18 documented as of this encounter
--- OUTSIDE RECORDS SUMMARY | 2024-06-26 02:06 | XMS_ITS | Encounter Summary ---
Author Organization [facility] Address [address] [place] [address] Phone Care Team Providers Care Travel Accommodation Inspector Name Role Phone Julio César Briseno MD Primary Care Provider [phone] Eren Cr MD Unavailable [phone] Yohana Bowen MD Unavailable Reason for Visit * Episode Based Medications (Routine) - Closed Specialty Diagnoses / Procedures Referred By Evelyne bowman Referred To Contact Diagnoses Neuro-endocrine carcinoma (HCC) Procedures study [id number] phase III cabozantinib Eren Cr MD [address] [facility] [address] [place] [address] Phone: tel: fax: [facility] and [facility] [address] [facility] 7th [place] [address] Phone: tel: Referral ID Status Reason Start Date Expiration Date Visits Re quested Visits Authorized [id number] Closed 06/21/2021 06/26/2024 1 99 Encounter Details Date Type Department Care Team (Latest Contact Info) Description 01/15/2022 12:30 PM CDT Clinical Support [facility] Oncology [facility] 7th [place] [address] [place] [address] Neuro-endocrine carcinoma (CMS/HCC) (HCC) (Primary Dx); Hypophosphatemia [...] file 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
--- OUTSIDE RECORDS SUMMARY | 2024-06-26 02:06 | XMS_ITS | Encounter Summary ---
Author Organization [facility] Address [address] [place] [address] Phone Care Team Providers Care Panelboard Tank Pumper Name Role Phone Julio César Briseno MD Primary Care Provider [phone] Eren Cr MD Unavailable [phone] Yohana Bowen MD Unavailable Reason for Visit * Episode Based Medications (Routine) - Closed Specialty Diagnoses / Procedures Referred By Evelyne bowman Referred To Contact Diagnoses Neuro-endocrine carcinoma (HCC) Procedures study [id number] phase III cabozantinib Eren Cr MD [address] [facility] [address] [place] [address] Phone: tel: fax: [facility] and [facility] [address] [facility] 7th [place] [address] Phone: tel: Referral ID Status Reason Start Date Expiration Date Visits Re quested Visits Authorized [id number] Closed 06/21/2021 06/26/2024 1 99 Encounter Details Date Type Department Care Team (Late st Contact Info) Description 01/15/2022 3:00 PM CDT Infusion [facility] On[facility] 7th [place] [address] Neuro-endocrine carcinoma (CMS/HCC) (HCC) Social History Tobacco [...] on file Legal Sex Female 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
--- OUTSIDE RECORDS SUMMARY | 2024-06-26 02:06 | XMS_ITS | Encounter Summary ---
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 Eren Cr MD [address] [facility] [address] [place] [address] Phone: tel: fax: [facility] at [facility] and [facility] [address] [facility] 7th [place] [address] Phone: tel: Referral ID Status Reason Start Date Expiration Date Visits Re quested Visits Authorized [id number] Closed 06/21/2021 06/26/2024 1 99 Encounter Details Date Type Department Care Team (Latest Contact Info) Description 12/25/2021 8:45 AM CDT Clinical Support [facility] Oncology [facility] 7th [place] [address] [place] [address] Neuro-endocrine carcinoma (CMS/HCC) (HCC) Social History Tobacco [...] on file 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
--- OUTSIDE RECORDS SUMMARY | 2024-06-26 02:06 | XMS_ITS | Encounter Summary ---
Author Organization [facility] Address [address] [place] [address] Care Team Providers Care Ground Support Equipment Assembler Name Role Phone Julio César Briseno MD Primary Care Provider [phone] Eren Cr MD Unavailable [phone] Yohana Bowen MD Unavailable Encounter Details Date Type Department Care Team (Latest Contact Info) Description 12/25/2021 11:05 AM CDT - 12/25/2021 11:59 PM CDT Hospital Encounter [facility] [address] [place] [address] Neuro-endocrine carcinoma (CMS/HCC) (HCC) Discharge Disposition: Discharge [...] file 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 Gender Identity Not on file Sexual [...] capsuleIndications :supplement Take 1 tablet by mouth elevator examiner and adjuster before breakfast 07/04/2016 4 cholecalciferol (VITAMIN D-3) 2,000 unit capsule Take 1 capsule (2,000 Units total) by mouth daily 30 capsule 2 04/25/2019 3 cholestyramine (QUESTRAN) 4 gram packet Take 1 packet by mouth 3 (three) times a day with meals 270 packet 3 09/04/2019 2 clotrimazole-betam ethasone (LOTRISONE) cream Apply 1 Application topically daily as needed (rash) 4 coenzyme M07-wdicynm E 100-5 mg-unit capsuleIndications :supplement Take 1 tablet by mouth elevator examiner and adjuster before breakfast 4 diphenoxylate-atro pine (LOMOTIL) 2.5-0.025 [...] dose).?? Avoid Jas's Wort, grapefruit products and [place] oranges while on treatment. placed on hold 09/26/22 for covid 01/29/2022 4 levothyroxine (Synthroid) 75 mcg tabletIndications: Hypothyroidism due to medication Take 1 tablet (75 mcg total) by mouth elevator examiner and adjuster before breakfast 30 tablet 3 11/16/2021 2 [...] (ABNORMAL) eGFR (12/25/2021 9:25 AM CDT) Pathologist [facility] eGFR 45(L) 90 - 130 mL/min/1. 73 m2 [facility] Comment: Interpretive Data Reference Interval Normal ?>/= [...] last reviewed 2021. Testing performed by: [facility], [address] [place] [phone] Blood 12/25/2021 9:25 AM CDT 12/25/2021 9:28 AM CDT Eren Cr MD LAB BLOOD ORDERABLES Final Re sult [facility] One [facility] Department [place] [address] * (ABNORMAL) Differential, auto (12/25/2021 9:25 AM CDT) Neutrophil abs 2.0 1.8 - 6.6 K/cumm [facility] Comment:Testing performed by : [facility], [address] [place] [phone] Lymphocyte abs 0.6(L) 1.2 - 3.3 K/cumm JASON BLACK Comment:Testing performed by : [facility], [address] [place] [phone] Monocyte abs 0.3 0.2 - 1.2 K/cumm JASON BLACK Comment:Testing performed by : [facility], [address] [place] [phone] Eosinophil abs 0.5 0.0 - 0.5 K/cumm [facility] Comment:Testing performed by : [facility], [address] [place] [phone] Basophil abs 0.0 0.0 - 0.2 K/cumm CERMINNIE BLACK Comment:Testing performed by : [facility], [address] [place] [phone] Neutrophil pct 59.7 % [facility] Comment: Interpretive Data Percent cell count reference ranges are not reported, since discordance with absolute values may lead to misinterpretation of CBC data. Current Interpretive Data was last revised on 2017. Testing performed by: [facility], [address] [place] [phone] Lymphocyte pct 16.3 % [facility] Comment: Interpretive Data Percent cell count reference ranges are not reported, since discordance with absolute values may lead to misinterpretation of CBC data. Current Interpretive Data was last revised on 2017. Testing performed by: [facility], [address] [place] [phone] Monocyte pct 9.0 % [facility] Comment:Testing performed by : [facility], [address] [place] [phone] Eosinophil pct 13.9 % [facility] Comment:Testing performed by : [address] [address] Basophil pct 1.1 % [facility] Comment:Testing performed by : [facility], [address] [place] [phone] Blood 12/25/2021 9:25 AM CDT 12/25/2021 9:28 AM CDT Eren Cr MD LAB BLOOD ORDERABLES Final Re sult [facility] One [facility] [place] [address] * (ABNORMAL) CBC with auto differential (12/25/2021 9:25 AM CDT) WBC 3.4(L) 3.8 - 9.8 K/cumm [facility] BLACK Comment:Testing performed by : [facility], [address] [place] [phone] Hgb 12.0(L) 12.1 - 15.1 g/dL [facility] Comment:Testing performed by : [facility], [address] [place], [place] [phone] Hct 34.3(L) 36.1 - 44.3 % [facility] Comment:Testing performed by : [facility], [address] [place] [address] Plt 99(L) 140 - 440 K/cumm [facility] Comment:Testing performed by : [facility], [address] [place] [address] MPV 9.1 6.8 - 10.4 fL [facility] Comment:Testing performed by : [place] [address] RBC 3.31(L) 3.90 - 5.00 M/cumm [facility] Comment:Testing performed by : [place] [address] MCV 103.5(H) 80.0 - 97.6 fL [facility] Comment:Testing performed by : [facility], [address] [place], [place] [phone] MCH 36.2(H) 26.7 - 33.7 pg [facility] Comment:Testing performed by : [place] [address] MCHC 35.0 32.7 - 35.5 g/dL [facility]J Comment:Testing performed by : [place] [address] RDW CV 13.3 11.8 - 14.6 % [facility] Comment:Testing performed by : [facility], [address] [place] [address] NRBC abs 0.00 0.00 - 0.01 K/cumm [facility] Comment:Testing performed by : [place] [address] Blood 12/25/2021 9:25 AM CDT 12/25/2021 9:28 AM CDT us Eren Cr MD LAB BLOOD ORDERABLES Final Re sult [facility] One [facility] Department [place] [address] * (ABNORMAL) Comprehensive metabolic panel (12/25/2021 9:25 AM CDT) Sodium 139 135 - 145 mmol/L [facility] Comment:Testing performed by : [facility], [address] [place] [phone] Potassium, pl 4.0 3.3 - 4.9 mmol/L [facility] Comment:Testing performed by : [facility], [address] [place] [phone] Chloride 108 97 - 110 mmol/L [facility] Comment:Testing performed by : [facility], [address] [place] [phone] CO2 25 22 - 32 mmol/L [facility] Comment:Testing performed by : [facility], [address] [place] [phone] Anion gap 6 2 - 15 mmol/L [facility] Comment:Testing performed by : [facility], [address] [place] [phone] BUN 18 8 - 25 mg/dL [facility] Comment:Testing performed by : [address] [phone] Creatinine 1.27(H) 0.60 - 1.10 mg/dL [facility] Comment:Testing performed by : [facility], [address] [place] [phone] Glucose 111 70 - 199 mg/dL [facility] Comment: Interpretive Data Fasting glucose >/= 126 [...] last revised 2017. Testing performed by: [facility], [address] [place] [phone] Calcium 9.9 8.5 - 10.3 mg/dL [facility] Comment:Testing performed by : [facility], [address] [place] [phone] Bilirubin, total 0.5 0.1 - 1.2 mg/dL [facility] Comment:Testing performed by : [facility], [address] [place] [phone] Protein, pl 6.3(L) 6.5 - 8.5 g/dL [facility] Comment:Testing performed by : [facility], [address] [place] [phone] Albumin 4.1 3.5 - 5.0 g/dL [facility] Comment:Testing performed by : [facility], [address] [place] [phone] Alk phos 84 40 - 130 Units/L [facility]ERMINNIE [facility] Comment:Testing performed by : [facility], [address] [place] [phone] ALT 22 7 - 45 Units/L CERMINNIE [facility] Comment:Testing performed by : [facility], [address] [place] [phone] AST 32 10 - 45 Units/L CERMINNIE [facility] Comment:Testing performed by : [facility], [address] [place] [phone] Blood 12/25/2021 9:25 AM CDT 12/25/2021 9:28 AM CDT us Eren Cr MD LAB BLOOD ORDERABLES Final Re sult [facility] One [facility] [place] [address] * Magnesium (12/25/2021 9:25 AM CDT) Magnesium 1.5 1.4 - 2.5 mg/dL [facility] Comment:Testing performed by : [facility], [address] [place] [phone] Blood 12/25/2021 9:25 AM CDT 12/25/2021 9:28 AM CDT Eren Cr MD LAB BLOOD ORDERABLES Final Re sult Performing Organization Address [facility] Co de Phone Number [facility] [place] [address] * Phosphorus (12/25/2021 9:25 AM CDT) Phosphorus, pl 2.3 2.3 - 4.5 mg/dL [facility] Comment:Testing performed by : [facility], [address] [place] [phone] Blood 12/25/2021 9:25 AM CDT 12/25/2021 9:28 AM CDT Eren Cr MD LAB BLOOD ORDERABLES Final Re sult Performing Organization Address [facility] [place] [address] documented in this encounter Visit Diagnoses Diagnosis Neuro-endocrine carcinoma (HCC) Other malignant neoplasm of unspecified site documented in this encounter Care Teams Ground Support Equipment Assembler Relationship Specialty Start Date End Date Julio César Briseno MD PCP - General 10/01/16 Eren Cr MD Referring Physician Medical Oncology 11/25/18 Yohana Bowen MD Radiation Oncologist Radiation Oncology 11/25/18 documented as of this encounter
--- OUTSIDE RECORDS SUMMARY | 2024-06-26 02:06 | XMS_ITS | Encounter Summary ---
Author Organization [facility] Address [address] [place] [address] Phone Care Team Providers Care Metal Trim Erector Name Role Phone Julio César Briseno MD Primary Care Provider [phone] Eren Cr MD Unavailable [phone] Yohana Bowen MD Unavailable Encounter Details Date Type Department Care Team (Late st Contact Info) Description 12/14/2021 Orders Only [facility] Oncology [address] [facility] Advanced [facility] 7th [place] [address] [place] [address] Eren Cr MD [address] [facility] [address] [place] [address] Social History Tobacco Use Types Packs/Day Years [...] on file 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
--- OUTSIDE RECORDS SUMMARY | 2024-06-26 02:06 | XMS_ITS | Encounter Summary ---
Author Organization [facility] Address [address] [place] [address] Phone Care Team Providers Care Architect Internship Name Role Phone Julio César Briseno MD Primary Care Provider [phone] Eren Cr MD Unavailable [phone] Yohana Bowen MD Unavailable Encounter Details Date Type Department Care Team (Late st Contact Info) Description 01/11/2022 Telephone [facility] Obstetrics and Gynecology [address] [facility] Advanced Medicine 13th [place] [address] [place] [address] Ana Guillen Social History Tobacco [...] on file 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
--- OUTSIDE RECORDS SUMMARY | 2024-06-26 02:06 | XMS_ITS | Encounter Summary ---
Author Organization [facility] Address [address] [place] [address] Phone Care Team Providers Care Slate Roofer Name Role Phone Julio César Briseno MD Primary Care Provider [phone] Eren Cr MD Unavailable [phone] Yohana Bowen MD Unavailable Reason for Visit * Episode Based Medications (Routine) - Closed Specialty Diagnoses / Procedures Referred By Evelyne bowman Referred To Contact Diagnoses Neuro-endocrine carcinoma (HCC) Procedures study [id number] phase III cabozantinib Eren Cr MD [address] [facility] [address] [place] [address] Phone: tel: fax: [facility] [address] [facility] 7th [place] [address] Phone: tel: Referral ID Status Reason Start Date Expiration Date Visits Re quested Visits Authorized [id number] Closed 06/21/2021 06/26/2024 1 99 Encounter Details Date Type Department Care Team (Latest Contact Info) Description 12/25/2021 10:30 AM CDT Research Med Pick-Up/CTRU Digital Account Executive [facility] Oncology [address] [place] [address] 7th [place] [address] Neuro-endocrine carcinoma (CMS/HCC) (HCC) (Primary Dx) Social [...] on file 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
--- OUTSIDE RECORDS SUMMARY | 2024-06-26 02:06 | XMS_ITS | Encounter Summary ---
Author Organization [facility] Address [address] [place] [address] Phone Care Team Providers Care School Cleaner Name Role Phone Julio César Briseno MD Primary Care Provider [phone] Eren Cr MD Unavailable [phone] Yohana Bowen MD Unavailable Reason for Visit * Episode Based Medications (Routine) - Closed Specialty Diagnoses / Procedures Referred By Evelyne bowman Referred To Contact Diagnoses Neuro-endocrine carcinoma (HCC) Procedures study [id number] phase III cabozantinib Eren Cr MD [address] [facility] [address] [place] [address] Phone: tel: fax: [facility] [address] [facility] 7th [place] [address] Phone: tel: Referral ID Status Reason Start Date Expiration Date Visits Re quested Visits Authorized [id number] Closed 06/21/2021 06/26/2024 1 99 Encounter Details Date Type Department Care Team (Late st Contact Info) Description 12/25/2021 9:45 AM CDT Office Visit [facility] Oncology [address] 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 Greyson Reeves. Biopsy [...] balls of feet. Mild erythema. NEURO: A&Ox4, excelsior picker grossly intact by conversation, moving all extremities [...] PM CDT) Protein, ur, quant 55.3 mg/dL [facility] Comment: Interpretive Data No reference range established. Current interpretive data was last revised 2018. Creatinine Ur 441.4 mg/dL [facility] Comment: Interpretive Data No reference range established. Current interpretive data was last revised 2018. Protein/creatinin e ratio 125.3 0.0 - 180.0 mg/g CR [facility] Urine 01/15/2022 12:5 2 PM CDT 01/15/2022 1:02 PM CDT us Eren Cr MD LAB URINE ORDERABLES Final Re sult [facility] Department [place] [address] * (ABNORMAL) Chromogranin A (01/15/2022 12:44 PM CDT) Chromogranin A 1014(H) <93 ng/mL [facility] Comment: Impaired renal or hepatic function or treatment with proton pump inhibitors may result in artifactual elevations of Chromogranin A. ADDITIONAL INFORMATION This test was developed and its performance characteristics determined by [facility] in a manner consistent with [...] a homogeneous time-resolved immunofluorescent assay manufactured by [employer] and performed on the [employer] KrItinerisor Compact Plus. ? Values obtained with different assay methods or kits may be different and cannot be used interchangeably. ? Test results cannot be interpreted as absolute evidence for the presence or absence of malignant disease. Test Performed by: [facility] [address] [place] [address] Seaweed Harvester: Immanuel Novak M.D. Ph.D.; CLIA# [id number] Blood 01/15/2022 12:4 4 PM CDT 01/15/2022 12:57 PM CDT us Eren Cr MD LAB BLOOD ORDERABLES Final Re sult [facility] Department [place] [address] * (ABNORMAL) Comprehensive metabolic panel (01/15/2022 12:43 PM CDT) Sodium 135 135 - 145 mmol/L [facility] Comment:Testing performed by : [facility], [address] [place] [phone] Potassium, pl 4.0 3.3 - 4.9 mmol/L [facility] Comment:Testing performed by : [facility], [address] [place] [phone] Chloride 104 97 - 110 mmol/L [facility] Comment:Testing performed by : [facility], [address] [place] [phone] CO2 23 22 - 32 mmol/L [facility] Comment:Testing performed by : [facility], [address] [place] [phone] Anion gap 8 2 - 15 mmol/L [facility] Comment:Testing performed by : [facility], [address] [place] [phone] BUN 32(H) 8 - 25 mg/dL [facility] Comment:Testing performed by : [facility], [address] [place] [phone] Creatinine 1.96(H) 0.60 - 1.10 mg/dL [facility] Comment:Testing performed by : [facility], [address] [place] [phone] Glucose 113 70 - 199 mg/dL [facility] [...] was last revised 2017. Testing performed by: [place] [phone] Calcium 10.4(H) 8.5 - 10.3 mg/dL [facility] Comment:Testing performed by : [address] [address] Bilirubin, total 0.5 0.1 - 1.2 mg/dL [facility] Comment:Testing performed by : [facility], [address] [place] [phone] Protein, pl 6.7 6.5 - 8.5 g/dL [facility] Comment:Testing performed by : [address] [address] Albumin 4.4 3.5 - 5.0 g/dL [facility] Comment:Testing performed by : [address] [address] Alk phos 105 40 - 130 Units/L [facility] Comment:Testing performed by : [address] [address] ALT 31 7 - 45 Units/L [facility] Comment:Testing performed by : [address] [phone] AST 41 10 - 45 Units/L [facility] Comment:Testing performed by : [address] [address] Blood 01/15/2022 12:4 3 PM CDT 01/15/2022 12:46 PM CDT us Eren Cr MD LAB BLOOD ORDERABLES Final Re sult [facility] [place] [address] * (ABNORMAL) CBC with auto differential (01/15/2022 12:43 PM CDT) WBC 4.0 3.8 - 9.8 K/cumm [facility] Comment:Testing performed by : [facility], [address] [place] [phone] Hgb 13.0 12.1 - 15.1 g/dL [facility] Comment:Testing performed by : [address] [address] Hct 37.3 36.1 - 44.3 % [facility] Comment:Testing performed by : [address] [address] Plt 115(L) 140 - 440 K/cumm [facility] Comment:Testing performed by : [address] [address] MPV 9.0 6.8 - 10.4 fL [facility] Comment:Testing performed by : [address] [address] RBC 3.64(L) 3.90 - 5.00 M/cumm [facility] Comment:Testing performed by : [address] [address] MCV 102.6(H) 80.0 - 97.6 fL [facility] Comment:Testing performed by : [address] [address] MCH 35.7(H) 26.7 - 33.7 pg [facility] Comment:Testing performed by : [address] [address] MCHC 34.8 32.7 - 35.5 g/dL [facility] Comment:Testing performed by : [facility], [address] [place] [phone] RDW CV 13.0 11.8 - 14.6 % [facility] Comment:Testing performed by : [facility], [address] [place] [phone] NRBC abs 0.00 0.00 - 0.01 K/cumm [facility] Comment:Testing performed by : [facility], [address] [place] [phone] Blood 01/15/2022 12:4 3 PM CDT 01/15/2022 12:46 PM CDT Result [facility] Eren Cr MD LAB BLOOD ORDERABLES Final Re sult Performing Organization Address [facility]/ZIP Co de Phone Number [facility] Department [place] [address] * (ABNORMAL) Vitamin D 25 hydroxy (01/15/2022 12:43 PM CDT) [facility] Vitamin D 25-OH 22(L) 30 - 80 ng/mL [facility] Blood 01/15/2022 12:4 3 PM CDT 01/15/2022 1:09 PM CDT Result [facility] Eren Cr MD LAB BLOOD ORDERABLES Final Re sult Performing Organization Address [facility] Co de Phone Number [facility] Department [place] [address] * Phosphorus (01/15/2022 12:43 PM CDT) [facility] Phosphorus, pl 3.0 2.3 - 4.5 mg/dL [facility] Comment:Testing performed by : [facility], [address] [place] [phone] Blood 01/15/2022 12:4 3 PM CDT 01/15/2022 12:46 PM CDT Result [facility] Eren Cr MD LAB BLOOD ORDERABLES Final Re sult [facility] [place] [address] * (ABNORMAL) Lipid panel (01/15/2022 12:43 PM CDT) [facility] Signature Cholesterol 193 30 - 199 mg/dL [facility] Comment: Interpretive Data Ages < [...] on 2018. Triglycerides 298(H) <=149 mg/dL [facility] Comment: Interpretive Data Ages < [...] revised on 2018. HDL 49 >=40 mg/dL [facility] Comment: Interpretive Data [...] on 2018. LDL, calculated 84 <=129 mg/dL [facility] Comment: Interpretive Data Ages [...] revised on 2018. Non-HDL Cholesterol 144 mg/dL [facility] Comment: Interpretive Data Ages [...] last revised on 2018. Chol/HDL ratio 4 [facility] Blood 01/15/2022 12:4 3 PM CDT 01/15/2022 1:09 PM CDT Eren Cr MD LAB BLOOD ORDERABLES Final Re sult Performing Organization Address [facility] Co de Phone Number [facility] [place] [address] * (ABNORMAL) TSH (01/15/2022 12:43 PM CDT) Thyroid Stimulating Hormone 9.39(H) 0.30 - 4.20 mcIUnit/mL [facility] Blood 01/15/2022 12:4 3 PM CDT 01/15/2022 1:09 PM CDT Eren Cr MD LAB BLOOD ORDERABLES Final Re sult Performing Organization Address [facility] Co de Phone Number [facility] Department [place] [address] * Magnesium (01/15/2022 12:43 PM CDT) Magnesium 1.7 1.4 - 2.5 mg/dL [facility] Comment:Testing performed by : [facility], [address] [place] [phone] Blood 01/15/2022 12:4 3 PM CDT 01/15/2022 12:46 PM CDT Eren Cr MD LAB BLOOD ORDERABLES Final Re sult Performing Organization Address City/[facility] Co de Phone Number [facility] [place] [address] documented in this encounter Visit Diagnoses Diagnosis [...] 22 documented in this encounter Care Teams School Cleaner Relationship Specialty Start Date End Date Julio César Briseno MD PCP - General 10/01/16 Eren Cr MD Referring Physician Medical Oncology 11/25/18 Yohana Bowen MD Radiation Oncologist Radiation Oncology 11/25/18 documented as of this encounter
--- OUTSIDE RECORDS SUMMARY | 2024-06-26 02:06 | XMS_ITS | Encounter Summary ---
Author Organization [facility] Address [address] [place] [address] Phone Care Team Providers Care Glue Machine Operator Name Role Phone Julio César Briseno MD Primary Care Provider Eren Cr MD Unavailable [phone] Yohana Bowen MD Unavailable Encounter Details Date Type Department Care Team (Late st Contact Info) Description 01/15/2022 Orders Only [facility] Oncology [address] [facility] 7th [place] [address] [place] [address] Eren Cr MD [address] [facility] [address] [place] [address] Social History Tobacco Use Types Packs/Day Years [...] on file 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
--- OUTSIDE RECORDS SUMMARY | 2024-06-26 02:06 | XMS_ITS | Encounter Summary ---
Author Organization [facility] Healthcare Address [address] [place] [address] Care Team Providers Care Web Specialist Name Role Phone Julio César Briseno MD Primary Care Provider [phone] Eren Cr MD Unavailable [phone] Yohana Bowen MD Unavailable Encounter Details Date Type Department Care Team (Latest Contact Info) Description 01/15/2022 10:06 AM CDT - 01/15/2022 11:59 PM CDT Hospital Encounter [facility] [address] [place] [address] Neuroendocrine carcinoma (CMS/HCC) (HCC); Malignant neoplasm metastatic [...] on file Legal Sex Female 2:41 PM [employer] Gender Identity Not on file Sexual [...] capsuleIndications :supplement Take 1 tablet by mouth 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 Avoid Jas's Wort, grapefruit products and [place] oranges while on treatment. 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 Current interpretive data was last revised 2018. Creatinine Ur 441.4 mg/dL [facility] Comment: Interpretive Data No reference range established. Current interpretive data was last revised 2018. Protein/creatinin e ratio 125.3 0.0 - 180.0 mg/g CR [facility] Urine 01/15/2022 12:5 2 PM CDT 01/15/2022 1:02 PM CDT Eren Cr MD LAB URINE ORDERABLES Final Re sult [facility] Department [place] [address] * (ABNORMAL) Chromogranin A (01/15/2022 12:44 PM CDT) Pathologist [facility] [place] Chromogranin A 1014(H) <93 ng/mL [facility] Comment: Impaired renal or hepatic function or treatment with proton pump inhibitors may result in artifactual elevations of Chromogranin A. ADDITIONAL INFORMATION This test was developed and its performance characteristics determined by [facility] in a manner consistent with CLIA requirements. [...] a homogeneous time-resolved immunofluorescent assay manufactured by [employer] and performed on the [employer]. ? Values obtained with different assay methods or kits may be different and cannot be used interchangeably. ? Test results cannot be interpreted as absolute evidence for the presence or absence of malignant disease. Test Performed by: [place] [address] Filing Clerk: Immanuel Novak M.D. Ph.D.; CLIA# [id number] Blood 01/15/2022 12:4 4 PM CDT 01/15/2022 12:57 PM CDT Eren Cr MD LAB BLOOD ORDERABLES Final Re sult [facility] Department [place] [address] * (ABNORMAL) eGFR (01/15/2022 12:43 PM CDT) eGFR 27(L) 90 - 130 mL/min/1. 73 m2 [facility] [...] was last reviewed 2021. Testing performed by: [facility], [address] [place] [phone] Blood 01/15/2022 12:4 3 PM CDT 01/15/2022 12:46 PM CDT us Eren Cr MD LAB BLOOD ORDERABLES Final Re sult [facility] Department [place] [address] * (ABNORMAL) Differential, auto (01/15/2022 12:43 PM CDT) Neutrophil abs 2.3 1.8 - 6.6 K/cumm [facility] Comment:Testing performed by : [facility], [address] [place] [phone] Lymphocyte abs 0.9(L) 1.2 - 3.3 K/cumm [facility] Comment:Testing performed by : [facility], [address] [place] [phone] Monocyte abs 0.4 0.2 - 1.2 K/cumm [facility] Comment:Testing performed by : [facility], [address] [place] [phone] Eosinophil abs 0.4 0.0 - 0.5 K/cumm [facility] Comment:Testing performed by : [facility], [address] [place] [phone] Basophil abs 0.0 0.0 - 0.2 K/cumm [facility] Comment:Testing performed by : [facility], [address] [place] [phone] Neutrophil pct 57.4 % [facility] Comment: Interpretive Data Percent cell count reference ranges are not reported, since discordance with absolute values may lead to misinterpretation of CBC data. Current Interpretive Data was last revised on 2017. Testing performed by: [facility], [address] [place] [phone] Lymphocyte pct 21.4 % [facility] Comment: Interpretive Data Percent cell count reference ranges are not reported, since discordance with absolute values may lead to misinterpretation of CBC data. Current Interpretive Data was last revised on 2017. Testing performed by: [facility], [address] [place] [phone] Monocyte pct 11.0 % [facility] Comment:Testing performed by : [facility], [address] [place] [phone] Eosinophil pct 9.2 % [facility] Comment:Testing performed by : [facility], [address] [place] [phone] Basophil pct 1.0 % [facility] Comment:Testing performed by : [facility], [address] [place] [phone] Blood 01/15/2022 12:4 3 PM CDT 01/15/2022 12:46 PM CDT us Eren Cr MD LAB BLOOD ORDERABLES Final Re sult [facility] Department [place] [address] * Magnesium (01/15/2022 12:43 PM CDT) Magnesium 1.7 1.4 - 2.5 mg/dL [facility] Comment:Testing performed by : [facility], [address] [facility] [phone] Blood 01/15/2022 12:4 3 PM CDT 01/15/2022 12:46 PM CDT Eren Cr MD LAB BLOOD ORDERABLES Final Re sult Performing Organization Address [facility] Co de Phone Number [facility] [place] [address] * (ABNORMAL) TSH (01/15/2022 12:43 PM CDT) Thyroid Stimulating Hormone 9.39(H) 0.30 - 4.20 mcIUnit/mL [facility] Blood 01/15/2022 12:4 3 PM CDT 01/15/2022 1:09 PM CDT Eren Cr MD LAB BLOOD ORDERABLES Final Re sult Performing Organization Address [facility] de Phone Number [facility] [place] [address] * (ABNORMAL) Lipid panel (01/15/2022 12:43 PM CDT) Cholesterol 193 30 - 199 mg/dL [facility] [...] revised on 2018. Triglycerides 298(H) <=149 mg/dL [facility] Comment: [...] revised on 2018. HDL 49 >=40 mg/dL [facility] [...] on 2018. LDL, calculated 84 <=129 mg/dL [facility] [...] on 2018. Non-HDL Cholesterol 144 mg/dL [facility] [...] revised on 2018. Chol/HDL ratio 4 [facility] Blood 01/15/2022 12:4 3 PM CDT 01/15/2022 1:09 PM CDT us Eren Cr MD LAB BLOOD ORDERABLES Final Re sult [facility] Department [place] [address] * Phosphorus (01/15/2022 12:43 PM CDT) Phosphorus, pl 3.0 2.3 - 4.5 mg/dL [facility] Comment:Testing performed by : [facility], [address] [place] [phone] Blood 01/15/2022 12:4 3 PM CDT 01/15/2022 12:46 PM CDT Eren Cr MD LAB BLOOD ORDERABLES Final Re sult Performing Organization Address [facility]/ZIP Co de Phone Number [facility] [place] [address] * (ABNORMAL) Vitamin D 25 hydroxy (01/15/2022 12:43 PM CDT) Pathologist [facility] [place] Vitamin D 25-OH 22(L) 30 - 80 ng/mL [facility] Blood 01/15/2022 12:4 3 PM CDT 01/15/2022 1:09 PM CDT Eren Cr MD LAB BLOOD ORDERABLES Final Re sult Performing Organization Address [facility] Co de Phone Number [facility] [place] [address] * (ABNORMAL) CBC with auto differential (01/15/2022 12:43 PM CDT) [facility] WBC 4.0 3.8 - 9.8 K/cumm [facility] Comment:Testing performed by : [facility], [address] [place] [phone] Hgb 13.0 12.1 - 15.1 g/dL [facility] Comment:Testing performed by : [facility], [address] [place] [phone] Hct 37.3 36.1 - 44.3 % [facility] Comment:Testing performed by : [facility], [address] [place] [phone] Plt 115(L) 140 - 440 K/cumm [facility] Comment:Testing performed by : [facility], [address] [place] [phone] MPV 9.0 6.8 - 10.4 fL [facility] Comment:Testing performed by : [facility], [address] [place] [phone] RBC 3.64(L) 3.90 - 5.00 M/cumm [facility] Comment:Testing performed by : [facility], [address] [place] [phone] MCV 102.6(H) 80.0 - 97.6 fL [facility] Comment:Testing performed by : [address] [phone] MCH 35.7(H) 26.7 - 33.7 pg [facility] Comment:Testing performed by : [facility], [address] [place] [phone] MCHC 34.8 32.7 - 35.5 g/dL [facility] Comment:Testing performed by : [facility], [address] [place] [phone] RDW CV 13.0 11.8 - 14.6 % [facility] Comment:Testing performed by : [facility], [address] [place] [phone] NRBC abs 0.00 0.00 - 0.01 K/cumm [facility] Comment:Testing performed by : [address] [phone] Blood 01/15/2022 12:4 3 PM CDT 01/15/2022 12:46 PM CDT us Eren Cr MD LAB BLOOD ORDERABLES Final Re sult [facility] Department [place] [address] * (ABNORMAL) Comprehensive metabolic panel (01/15/2022 12:43 PM CDT) Sodium 135 135 - 145 mmol/L [facility] Comment:Testing performed by : [address] [phone] Potassium, pl 4.0 3.3 - 4.9 mmol/L [facility] Comment:Testing performed by : [facility], [address] [place] [phone] Chloride 104 97 - 110 mmol/L [facility] Comment:Testing performed by : [facility], [address] [place] [phone] CO2 23 22 - 32 mmol/L [facility] Comment:Testing performed by : [facility], [address] [place] [phone] Anion gap 8 2 - 15 mmol/L [facility] Comment:Testing performed by : [facility], [address] [place] [phone] BUN 32(H) 8 - 25 mg/dL [facility] Comment:Testing performed by : [facility], [address] [place] [phone] Creatinine 1.96(H) 0.60 - 1.10 mg/dL [facility] Comment:Testing performed by : [facility], [address] [place] [phone] Glucose 113 70 - 199 mg/dL [facility] [...] was last revised 2017. Testing performed by: [facility], [address] [place] [phone] Calcium 10.4(H) 8.5 - 10.3 mg/dL [facility] Comment:Testing performed by : [facility], [address] [place] [phone] Bilirubin, total 0.5 0.1 - 1.2 mg/dL [facility] Comment:Testing performed by : [facility], [address] [place] [phone] Protein, pl 6.7 6.5 - 8.5 g/dL [facility] Comment:Testing performed by : [facility], [address] [place] [phone] Albumin 4.4 3.5 - 5.0 g/dL [facility] Comment:Testing performed by : [facility], [address] [place] [phone] Alk phos 105 40 - 130 Units/L [facility] Comment:Testing performed by : [facility], [address] [place] [phone] ALT 31 7 - 45 Units/L [facility] Comment:Testing performed by : [facility], [address] [place] [phone] AST 41 10 - 45 Units/L [facility] Comment:Testing performed by : [facility], [address] [place] [phone] Blood 01/15/2022 12:4 3 PM CDT 01/15/2022 12:46 PM CDT Eren Cr MD LAB BLOOD ORDERABLES Final Re sult [facility] Department of Laboratories [place], [place] [id number] documented in this encounter Visit Diagnoses Diagnosis Neuroendocrine carcinoma (HCC) Other malignant neoplasm of unspecified site 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
--- OUTSIDE RECORDS SUMMARY | 2024-06-26 02:06 | XMS_ITS | Encounter Summary ---
Author Organization [facility] Healthcare Address [address] [place] [address] Care Team Providers Care Foam Charger Name Role Phone Julio César Briseno MD Primary Care Provider [phone] Eren Cr MD Unavailable [phone] Yohana Bowen MD Unavailable Encounter Details Date Type Department Care Team (Latest Contact Info) Description 01/10/2022 3:20 PM CDT - 01/10/2022 11:59 PM CDT Hospital Encounter [facility] [address] [place] [id number] Hypophosphatemia (Primary Dx); Diarrhea, unspecified type Discharge [...] file 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 Saturday through Saturday, 8 AM to 4:30 PM, call [phone] [facility] Oncology Physician at [facility] Advanced [facility] and ask for a member [...] topically daily as needed (rash) 4 coenzyme [id number] E 100-5 mg-unit capsuleIndications :supplement Take 1 tablet by mouth early childhood coordinator before breakfast 4 diphenoxylate-atro pine (LOMOTIL) 2.5-0.025 [...] dose).?? Avoid Jas's Wort, grapefruit products and [place] oranges while on treatment. placed on hold 09/26/22 for covid 01/29/2022 4 levothyroxine (Synthroid) 75 mcg tabletIndications: Hypothyroidism due to medication Take 1 tablet (75 mcg total) by mouth early childhood coordinator before breakfast 30 tablet 3 11/16/2021 2 [...] reduced C6 of the CABINET clinical trial: [id number] - [facility] - GI - [id number] -Step 1 and Step 2 Crossover - Cabozantinib/Placebo OR Open label Cabozantinib, last on 12/25/21. Octreotide injection was on 12/11/21. Arrives to the [facility] accompanied via wheelchair with Alejo. BP 109/61 [...] CHEST >5 YEARS N/A 09/14/2021 ? ? GA REMOVAL OF TONSILS,<10 Y/O [...] stable condition via wheelchair. Hien Blanton, DNP, REGULATORY AFFAIRS SPECIALIST, DIRECT SALES 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-C [facility] (E) [email or web address] documented in this encounter Nursing Notes * Xochitl Perdue, RN - 01/10/2022 3:30 PM CDT Pt arrived to [facility] for ARCHITECTURAL PROJECT MANAGER evaluation. Pt came in with c/o of [...] Chemistries, Arterial - (01/10/2022 4:27 PM CDT) [facility] Lactate, POC 1.7 0.7 - 2.2 mmol/L [facility] Blood 01/10/2022 4:27 PM CDT 01/10/2022 4:27 PM CDT us Notinfile Unknown LAB POCT ORDERABLES - DEVICE F inal Result Performing Organization Address [facility] Co de Phone Number [facility] [place] [address] * (ABNORMAL) eGFR (01/10/2022 3:55 PM CDT) eGFR 33(L) 90 - 130 mL/min/1. 73 m2 [facility] Comment: Interpretive Data Reference Interval [...] 01/10/2022 4:15 PM CDT us Hien Blanton ARCHITECTURAL PROJECT MANAGER LAB BLOOD ORDERABL ES Final Result Performing Organization Address [facility] Co de Phone Number [facility] [place] [address] * (ABNORMAL) Differential, auto (01/10/2022 3:55 PM [...] 2017. Imm gran pct 0.3 % [facility] Comment: Interpretive Data Percent cell count reference ranges are not reported, since discordance with absolute values may lead to misinterpretation of CBC data. Current Interpretive Data was last revised on 2017. Lymphocyte pct 19.5 % [facility] Comment: Interpretive Data [...] NP LAB BLOOD ORDERABL ES Final Result [facility] One [facility] [place] [address] * Respiratory pathogen panel Nasopharyngeal (01/10/2022 3:55 PM CDT) [facility] Influenza A RNA Not Detected Not Detected [facility] Influenza B RNA Not Detected Not Detected [facility] RSV RNA Not Detected Not Detected [facility] COVID-19 RNA Not Detected Not Detected [facility] Coronavirus 229E RNA Not Detected Not Detected [facility] Coronavirus HKU1 RNA Not Detected Not Detected [facility] Coronavirus NL63 RNA Not Detected Not Detected [facility] Coronavirus OC43 RNA Not Detected Not Detected [facility] Adenovirus DNA Not Detected Not Detected [facility] Metapneumovirus RNA Not Detected Not Detected [facility] Rhinovirus/Enterov irus RNA Not Detected Not Detected [facility] Parainfluenza 1 RNA Not Detected Not Detected [facility] Parainfluenza 2 RNA Not Detected Not Detected [facility] Parainfluenza 3 RNA Not Detected Not Detected [facility] Parainfluenza 4 RNA Not Detected Not Detected [facility] B. pertussis DNA Not Detected Not Detected [facility] B. parapertussis DNA Not Detected Not Detected [facility] C. pneumoniae DNA Not Detected Not Detected [facility] M. pneumoniae DNA Not Detected Not Detected [facility] Nasopharyngeal 01/10/2022 3: 55 PM CDT 01/10/2022 4:17 PM CDT Narrative [facility] - 01/10/2022 5:54 PM CDT Is the [...] assay has FDA clearance for testing of ARCHITECTURAL PROJECT MANAGER swabs. ??The performance characteristics of this assay have been determined by [facility]. Current interpretive data was last revised on 2021. ??Interpretive Data The [facility] FilmArray Respiratory Panel (RP2.1) assay is a [...] assay has FDA clearance for testing of ARCHITECTURAL PROJECT MANAGER swabs. ??The performance characteristics of this assay have been determined by [facility]. Current interpretive data was last revised on 2021. us Hien Blanton ARCHITECTURAL PROJECT MANAGER LAB MICROBIOLOGY - GENERAL ORDERABLES Final Result [facility] [place] [address] * Phosphorus (01/10/2022 3:55 PM CDT) Pathologist [facility] Phosphorus, pl 3.0 2.3 - 4.5 mg/dL [facility] Blood 01/10/2022 3:55 PM CDT 01/10/2022 4:15 PM CDT Hien Blanton ARCHITECTURAL PROJECT MANAGER LAB [place]LOOD [place] [address] * Magnesium (01/10/2022 3:55 PM CDT) Pathologist [facility] Magnesium 1.6 1.4 - 2.5 mg/dL [facility] Blood 01/10/2022 3:55 PM CDT 01/10/2022 4:15 PM CDT Hien Blanton ARCHITECTURAL PROJECT MANAGER LAB BLOOD ORDERABL ES Final Result Performing Organization Address City/[facility] [place] [address] * (ABNORMAL) Comprehensive metabolic panel (01/10/2022 3:55 PM CDT) Pathologist [facility] Sodium 138 135 - 145 mmol/L [facility] Potassium, pl 3.8 3.3 - 4.9 mmol/L [facility] Chloride 105 97 - 110 mmol/L [facility] CO2 23 22 - 32 mmol/L [facility] Anion gap 10 2 - 15 mmol/L [facility] BUN 24 8 - 25 mg/dL [facility] Creatinine 1.62(H) 0.60 - 1.10 mg/dL [facility] Glucose 121 70 - 199 mg/dL [facility] Comment: Interpretive Data Fasting glucose [...] 2017. Calcium 10.2 8.5 - 10.3 mg/dL [facility] Bilirubin, total 0.4 0.1 - 1.2 mg/dL [facility] Protein, pl 6.5 6.5 - 8.5 g/dL [facility] Albumin 4.0 3.5 - 5.0 g/dL [facility] Alk phos 95 40 - 130 Units/L [facility] ALT 37 7 - 45 Units/L [facility] AST 47(H) 10 - 45 Units/L [facility] Blood 01/10/2022 3:55 PM CDT 01/10/2022 4:15 PM CDT us Hien Blanton NP LAB BLOOD ORDERABL ES Final Result [facility] Department [place] [address] * (ABNORMAL) CBC with auto differential (01/10/2022 3:55 PM CDT) WBC 3.5(L) 3.8 - 9.9 K/cumm [facility] Hgb 12.3 11.9 - 15.5 g/dL [facility] Hct 36.0 35.6 - 45.5 % [facility] Plt 108(L) 150 - 400 K/cumm [facility] MPV 11.7 9.1 - 12.3 fL [facility] RBC 3.55(L) 3.90 - 5.20 M/cumm [facility] MCV 101.4(H) 81.3 - 96.4 fL [facility] MCH 34.6(H) 27.1 - 33.3 pg [facility] MCHC 34.2 32.3 - 35.7 g/dL [facility] RDW CV 12.6 11.1 - 14.9 % [facility] RDW SD 47.3 35.7 - 48.1 fL [facility] NRBC abs 0.00 0.00 - 0.01 K/cumm [facility] Blood 01/10/2022 3:55 PM CDT 01/10/2022 4:15 PM CDT us Hien Blanton ARCHITECTURAL PROJECT MANAGER LAB BLOOD ORDERABL ES Final Result [facility] [place] [address] documented in this encounter Visit Diagnoses Diagnosis [...] documented as of this encounter Care Teams Foam Charger Relationship Specialty Start Date End Date Julio César Briseno MD PCP - General 10/01/16 Eren Cr MD Referring Physician Medical Oncology 11/25/18 Yohana Bowen MD Radiation Oncologist Radiation Oncology 11/25/18 documented as of this encounter
--- OUTSIDE RECORDS SUMMARY | 2024-06-26 02:06 | XMS_ITS | Encounter Summary ---
Author Organization 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 Eren Arciniega MD [address] [facility] [address] [place] [address] Phone: tel: fax: [facility] [address] [place] [address] Phone: tel: Referral ID Status Reason Start Date Expiration Date Visits Re quested Visits Authorized [id number] Closed 06/21/2021 06/26/2024 1 99 Encounter Details Date Type Department Care Team (Late st Contact Info) Description 01/15/2022 1:30 PM CDT Office Visit [facility] [address] [place] [address] [place] [address] Eren Arciniega MD [address] [facility] [address] [place] [address] Neuroendocrine carcinoma (CMS/HCC) (HCC) (Primary Dx); Malignant [...] on file 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 Greyson Reeves. [...] balls of feet. Mild erythema. NEURO: A&Ox4, engineer first assistant grossly intact by conversation, moving all [...] and they verbalized understanding. Idania Diaz PA-C [facility] Division of Medical [...] Chromogranin A (01/29/2022 12:40 PM CDT) Pathologist [facility] Chromogranin A 930(H) <93 ng/mL [facility] Comment: Impaired renal or hepatic function or treatment with proton pump inhibitors may result in artifactual elevations of Chromogranin A. ADDITIONAL INFORMATION This test was developed and its performance characteristics determined by [facility] in a manner consistent with CLIA [...] a homogeneous time-resolved immunofluorescent assay manufactured by [employer] and performed on the [employer] Kryptor Compact Plus. ? Values obtained with different assay methods or kits may be different and cannot be used interchangeably. ? Test results cannot be interpreted as absolute evidence for the presence or absence of malignant disease. Test Performed by: [facility] [address] [place] [address] Discharge Rn: Immanuel Novak M.D. Ph.D.; CLIA# [id number] Blood 01/29/2022 12:4 0 PM CDT 01/29/2022 12:59 PM CDT Eren Arciniega MD LAB BLOOD ORDERABLES Final Re sult Performing Organization Address [facility] Co de Phone Number [facility] Department [place] [address] * (ABNORMAL) TSH (01/29/2022 12:40 PM CDT) Thyroid Stimulating Hormone 10.20(H) 0.30 - 4.20 mcIUnit/mL [facility] Blood 01/29/2022 12:4 0 PM CDT 01/29/2022 1:11 PM CDT Eren Arciniega MD LAB BLOOD ORDERABLES Final Re sult Performing Organization Address [facility] Co de Phone Number [facility] [place] [address] * (ABNORMAL) Phosphorus (01/29/2022 12:40 PM CDT) Phosphorus, pl 1.6(L) 2.3 - 4.5 mg/dL [facility] Comment:Testing performed by : [facility], [address] [place] [phone] Blood 01/29/2022 12:4 0 PM CDT 01/29/2022 12:43 PM CDT Eren Arciniega MD LAB BLOOD ORDERABLES Final Re sult Performing Organization Address [facility] Co de Phone Number [facility] Department [place] [address] * (ABNORMAL) Magnesium (01/29/2022 12:40 PM CDT) Pathologist [facility] Magnesium 1.2(L) 1.4 - 2.5 mg/dL [facility] Comment:Testing performed by : [facility], [address] [place] [phone] Blood 01/29/2022 12:4 0 PM CDT 01/29/2022 12:43 PM CDT us Eren Arciniega MD LAB BLOOD ORDERABLES Final Re sult Performing Organization Address [facility] Co de Phone Number [facility] Department [place] [address] * (ABNORMAL) Comprehensive metabolic panel (01/29/2022 12:40 PM CDT) Pathologist [facility] Sodium 139 135 - 145 mmol/L [facility] Comment:Testing performed by : [facility], [address] [place] [phone] Potassium, pl 3.9 3.3 - 4.9 mmol/L [facility] Comment:Testing performed by : [facility], [address] [place] [phone] Chloride 107 97 - 110 mmol/L [facility] BL[facility] Comment:Testing performed by : [facility], [address] [place] [phone] CO2 24 22 - 32 mmol/L [facility] Comment:Testing performed by : [facility], [address] [place] [phone] Anion gap 8 2 - 15 mmol/L [facility] Comment:Testing performed by : [facility], [address] [place] [phone] BUN 16 8 - 25 mg/dL [facility] Comment:Testing performed by : [facility], [address] [place] [phone] Creatinine 0.97 0.60 - 1.10 mg/dL [facility] Comment:Testing performed by : [facility], [address] [place] [phone] Glucose 129 70 - 199 mg/dL [facility] [...] was last revised 2017. Testing performed by: [facility], [address] [place] [phone] Calcium 9.5 8.5 - 10.3 mg/dL [facility] Comment:Testing performed by : [facility], [address] [place] [phone] Bilirubin, total 0.5 0.1 - 1.2 mg/dL [facility] Comment:Testing performed by : [facility], [address] [place] [phone] Protein, pl 6.0(L) 6.5 - 8.5 g/dL [facility] Comment:Testing performed by : [facility], [address] [place] [phone] Albumin 4.1 3.5 - 5.0 g/dL [facility] Comment:Testing performed by : [address] [phone] Alk phos 74 40 - 130 Units/L [facility] Comment:Testing performed by : [facility], [address] [place] [phone] ALT 16 7 - 45 Units/L [facility] BLACK Comment:Testing performed by : [facility], [address] [place] [phone] AST 24 10 - 45 Units/L [facility] Comment:Testing performed by : [facility], [address] [place] [phone] Blood 01/29/2022 12:4 0 PM CDT 01/29/2022 12:43 PM CDT us Eren Arciniega MD LAB BLOOD ORDERABLES Final Re sult [facility] Department [place] [address] * (ABNORMAL) CBC with auto differential (01/29/2022 12:40 PM CDT) WBC 3.2(L) 3.8 - 9.8 K/cumm [facility] Comment:Testing performed by : [facility], [address] [place] [phone] Hgb 11.0(L) 12.1 - 15.1 g/dL [facility] Comment:Testing performed by : [facility], [address] [place] [phone] Hct 30.9(L) 36.1 - 44.3 % [facility] Comment:Testing performed by : [facility], [address] [place] [phone] Plt 88(L) 140 - 440 K/cumm [facility] Comment:Testing performed by : [facility], [address] [place] [phone] MPV 8.1 6.8 - 10.4 fL [facility] Comment:Testing performed by : [address] [phone] RBC 3.00(L) 3.90 - 5.00 M/cumm [facility] Comment:Testing performed by : [facility], [address] [place] [phone] MCV 102.9(H) 80.0 - 97.6 fL [facility] Comment:Testing performed by : [facility], [address] [place] [phone] MCH 36.6(H) 26.7 - 33.7 pg [facility] Comment:Testing performed by : [facility], [address] [place] [phone] MCHC 35.6(H) 32.7 - 35.5 g/dL [facility] Comment:Testing performed by : [facility], [address] [place] [phone] RDW CV 13.2 11.8 - 14.6 % [facility] Comment:Testing performed by : [facility], [address] [place] [phone] NRBC abs 0.00 0.00 - 0.01 K/cumm [facility] Comment:Testing performed by : [facility], [address] [place] [phone] Blood 01/29/2022 12:4 0 PM CDT 01/29/2022 12:43 PM CDT Eren Arciniega MD LAB BLOOD ORDERABLES Final Re sult [facility] One [facility] Department [place] [address] * Protein / creatinine ratio, urine, random (01/29/2022 12:28 PM CDT) Protein, ur, quant 23.7 mg/dL [facility] Comment: Interpretive Data No reference range established. Current interpretive data was last revised 2018. Creatinine Ur 208.4 mg/dL [facility] Comment: Interpretive Data No reference range established. Current interpretive data was last revised 2018. Protein/creatinin e ratio 113.7 0.0 - 180.0 mg/g CR [facility] Urine 01/29/2022 12:2 8 PM CDT 01/29/2022 3:15 PM CDT us Eren Arciniega MD LAB URINE ORDERABLES Final Re sult [facility] Department [place] [address] * (ABNORMAL) Comprehensive metabolic panel (01/16/2022 10:53 AM CDT) Sodium 136 135 - 145 mmol/L [facility] Comment:Testing performed by : [facility], [address] [place] [phone] Potassium, pl 4.1 3.3 - 4.9 mmol/L [facility] Comment:Testing performed by : [facility], [address] [place] [phone] Chloride 107 97 - 110 mmol/L [facility] Comment:Testing performed by : [address] [phone] CO2 23 22 - 32 mmol/L [facility] Comment:Testing performed by : [facility], [address] [place] [phone] Anion gap 6 2 - 15 mmol/L [facility] Comment:Testing performed by : [address] [phone] BUN 29(H) 8 - 25 mg/dL [facility] Comment:Testing performed by : [address] [phone] Creatinine 1.84(H) 0.60 - 1.10 mg/dL [facility] Comment:Testing performed by : [facility], [address] [place] [phone] Glucose 121 70 - 199 mg/dL [facility]ON [...] was last revised 2017. Testing performed by: [facility], [address] [place] [phone] Calcium 10.2 8.5 - 10.3 mg/dL [facility] Comment:Testing performed by : [facility], [address] [place] [phone] Bilirubin, total 0.5 0.1 - 1.2 mg/dL [facility] Comment:Testing performed by : [facility], [address] [place] [phone] Protein, pl 6.2(L) 6.5 - 8.5 g/dL [facility] Comment:Testing performed by : [facility], [address] [place] [phone] Albumin 4.1 3.5 - 5.0 g/dL [facility] Comment:Testing performed by : [facility], [address] [place] [phone] Alk phos 119 40 - 130 Units/L [facility] Comment:Testing performed by : [address] [phone] ALT 38 7 - 45 Units/L [facility] Comment:Testing performed by : [facility], [address] [place] [phone] AST 52(H) 10 - 45 Units/L [facility] Comment:Testing performed by : [facility], [address] [place] [phone] Blood 01/16/2022 10:5 3 AM CDT 01/16/2022 10:56 AM CDT us Eren Arciniega MD LAB BLOOD ORDERABLES Final Re sult [facility] One [facility] Department [place] [address] * Magnesium (01/16/2022 10:53 AM CDT) Magnesium 1.6 1.4 - 2.5 mg/dL [facility] Comment:Testing performed by : [facility], [address] [place] [phone] Blood 01/16/2022 10:5 3 AM CDT 01/16/2022 10:56 AM CDT us Eren Arciniega MD LAB BLOOD ORDERABLES Final Re sult [facility] Department [place] [address] documented in this encounter Visit Diagnoses Diagnosis [...] 01/16/2022 documented in this encounter Care Teams Technical Asst Relationship Specialty Start Date End Date Julio César Briseno MD PCP - General 10/01/16 Eren Arciniega MD Referring Physician Medical Oncology 11/25/18 Yohana Bowen MD Radiation Oncologist Radiation Oncology 11/25/18 documented as of this encounter
--- OUTSIDE RECORDS SUMMARY | 2024-06-26 02:06 | XMS_ITS | Encounter Summary ---
Author Organization [facility] Healthcare Address [address] [place] [address] Care Team Providers Care Boring Mill Set Up Operator Vertical Name Role Phone Julio César Briseno MD Primary Care Provider [phone] Eren Cr MD Unavailable Yohana Bowen MD Unavailable Encounter Details Date Type Department Care Team (Latest Contact Info) Description 01/16/2022 5:26 PM CDT - 01/16/2022 11:59 PM CDT Hospital Encounter 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 Gender Identity Not on file Sexual [...] capsuleIndications :supplement Take 1 tablet by mouth claims configuration analyst before breakfast 07/04/2016 4 cholecalciferol (VITAMIN D-3) 2,000 unit capsule Take 1 capsule (2,000 Units total) by mouth daily 30 capsule 2 04/25/2019 3 cholestyramine (QUESTRAN) 4 gram packet Take 1 packet by mouth 3 (three) times a day with meals 270 packet 3 09/04/2019 2 clotrimazole-betam ethasone (LOTRISONE) cream Apply 1 Application topically daily as needed (rash) 4 coenzyme [id number] E 100-5 mg-unit capsuleIndications :supplement Take 1 tablet by mouth claims configuration analyst before breakfast 4 diphenoxylate-atro pine (LOMOTIL) [...] and 1 hour after each dose).?? Avoid [place]'s Wort, grapefruit products and [place] oranges while on treatment. placed on hold 09/26/22 for covid 01/29/2022 4 levothyroxine (Synthroid) 75 mcg tabletIndications: Hypothyroidism due to medication Take 1 tablet (75 mcg total) by mouth claims configuration analyst before breakfast 30 tablet 3 11/16/2021 2 [...] was last reviewed 2021. Testing performed by: [facility], [address] [place] [phone] Blood 01/18/2022 2:04 PM CDT 01/18/2022 2:05 PM CDT Eren Cr MD LAB BLOOD ORDERABLES Final Re sult [facility] [place] [address] * (ABNORMAL) Basic metabolic panel (01/18/2022 2:04 PM CDT) Sodium 138 135 - 145 mmol/L [facility] Comment:Testing performed by : [facility], [address] [place] [phone] Potassium, pl 4.0 3.3 - 4.9 mmol/L [facility] Comment:Testing performed by : [facility], [address] [place] [phone] Chloride 108 97 - 110 mmol/L [facility] Comment:Testing performed by : [facility], [address] [place] [phone] CO2 24 22 - 32 mmol/L [facility] Comment:Testing performed by : [facility], [address] [place] [phone] Anion gap 6 2 - 15 mmol/L [facility] Comment:Testing performed by : [facility], [address] [place] [phone] BUN 23 8 - 25 mg/dL [facility] Comment:Testing performed by : [facility], [address] [place] [phone] Creatinine 1.70(H) 0.60 - 1.10 mg/dL [facility] Comment:Testing performed by : [address] [phone] Glucose 107 70 - 199 mg/dL [facility] Comment: Interpretive Data Fasting glucose >/= 126 [...] was last revised 2017. Testing performed by: [facility], [address] [place] [address] [place] [address] Calcium 9.9 8.5 - 10.3 mg/dL [facility] Comment:Testing performed by : [facility], [address] [place] [phone] Blood 01/18/2022 2:04 PM CDT 01/18/2022 2:05 PM CDT Eren Cr MD LAB BLOOD ORDERABLES Final Re sult [facility] [place] [address] * (ABNORMAL) eGFR (01/16/2022 10:53 AM CDT) eGFR 29(L) 90 - 130 mL/min/1. 73 m2 [facility] Comment: Interpretive Data Reference Interval Normal ?>/= [...] was last reviewed 2021. Testing performed by: [facility], [address] [place] [phone] Blood 01/16/2022 10:5 3 AM CDT 01/16/2022 10:56 AM CDT us Eren Cr MD LAB BLOOD ORDERABLES Final Re sult [facility] One [facility] [place] [address] * (ABNORMAL) Differential, auto (01/16/2022 10:53 AM CDT) Neutrophil abs 1.9 1.8 - 6.6 K/cumm [facility] Comment:Testing performed by : [facility], [address] [place] [phone] Lymphocyte abs 0.5(L) 1.2 - 3.3 K/cumm [facility] Comment:Testing performed by : [facility], [address] [place] [phone] Monocyte abs 0.3 0.2 - 1.2 K/cumm [facility] Comment:Testing performed by : [facility], [address] [place] [phone] Eosinophil abs 0.4 0.0 - 0.5 K/cumm [facility] Comment:Testing performed by : [facility], [address] [place] [phone] Basophil abs 0.0 0.0 - 0.2 K/cumm [facility] Comment:Testing performed by : [facility], [address] [place] [phone] Neutrophil pct 61.6 % [facility] Comment: Interpretive Data Percent cell count reference ranges are not reported, since discordance with absolute values may lead to misinterpretation of CBC data. Current Interpretive Data was last revised on 2017. Testing performed by: [facility], [address] [place] [phone] Lymphocyte pct 16.2 % [facility] Comment: Interpretive Data Percent cell count reference ranges are not reported, since discordance with absolute values may lead to misinterpretation of CBC data. Current Interpretive Data was last revised on 2017. Testing performed by: [facility], [address] [place] [phone] Monocyte pct 9.3 % [facility] Comment:Testing performed by : [facility], [address] [place] [phone] Eosinophil pct 12.0 % [facility] Comment:Testing performed by : [facility], [address] [place] [phone] Basophil pct 0.9 % [facility] Comment:Testing performed by : [facility], [address] [place] [phone] Blood 01/16/2022 10:5 3 AM CDT 01/16/2022 10:56 AM CDT Eren Cr MD LAB BLOOD ORDERABLES Final Re sult Performing Organization Address [facility] Co de Phone Number [facility] Department [place] [address] * Phosphorus (01/16/2022 10:53 AM CDT) Pathologist [facility] Phosphorus, pl 2.6 2.3 - 4.5 mg/dL [facility] Comment:Testing performed by : [facility], [address] [place] [phone] Blood 01/16/2022 10:5 3 AM CDT 01/16/2022 10:56 AM CDT Eren Cr MD LAB BLOOD ORDERABLES Final Re sult Performing Organization Address City/[facility] Co de Phone Number [facility] [place] [address] * (ABNORMAL) CBC with auto differential (01/16/2022 10:53 AM CDT) Pathologist [facility] WBC 3.1(L) 3.8 - 9.8 K/cumm [facility] Comment:Testing performed by : [facility], [address] [place] [address] Hgb 12.2 12.1 - 15.1 g/dL [facility] Comment:Testing performed by : [facility], [address] [place] [address] Hct 35.3(L) 36.1 - 44.3 % [facility] Comment:Testing performed by : [place] [address] Plt 107(L) 140 - 440 K/cumm [facility] Comment:Testing performed by : [place] [address] MPV 9.0 6.8 - 10.4 fL [facility] Comment:Testing performed by : [place] [address] RBC 3.46(L) 3.90 - 5.00 M/cumm [facility] Comment:Testing performed by : [place] [address] MCV 102.0(H) 80.0 - 97.6 fL [facility] Comment:Testing performed by : [place] [address] MCH 35.4(H) 26.7 - 33.7 pg [facility] Comment:Testing performed by : [place] [address] MCHC 34.7 32.7 - 35.5 g/dL [facility] Comment:Testing performed by : [place] [address] RDW CV 12.6 11.8 - 14.6 % [facility] Comment:Testing performed by : [place] [address] NRBC abs 0.00 0.00 - 0.01 K/cumm [facility] Comment:Testing performed by : [place] [address] Blood 01/16/2022 10:5 3 AM CDT 01/16/2022 10:56 AM CDT Eren Cr MD LAB BLOOD ORDERABLES Final Re sult Performing Organization Address City/[facility] Co de Phone Number [facility] [place] [address] * Magnesium (01/16/2022 10:53 AM CDT) Pathologist [facility] Magnesium 1.6 1.4 - 2.5 mg/dL [facility] Comment:Testing performed by : [facility], [address] [place] [phone] Blood 01/16/2022 10:5 3 AM CDT 01/16/2022 10:56 AM CDT Eren Cr MD LAB BLOOD ORDERABLES Final Re sult Performing Organization Address [facility] de Phone Number [facility] [place] [address] * (ABNORMAL) Comprehensive metabolic panel (01/16/2022 10:53 AM CDT) [facility] Sodium 136 135 - 145 mmol/L [facility] Comment:Testing performed by : [facility], [address] [place] [phone] Potassium, pl 4.1 3.3 - 4.9 mmol/L [facility] Comment:Testing performed by : [facility], [address] [place] [phone] Chloride 107 97 - 110 mmol/L [facility] Comment:Testing performed by : [facility], [address] [place] [phone] CO2 23 22 - 32 mmol/L [facility] Comment:Testing performed by : [facility], [address] [place] [phone] Anion gap 6 2 - 15 mmol/L [facility] Comment:Testing performed by : [facility], [address] [place] [phone] BUN 29(H) 8 - 25 mg/dL [facility] Comment:Testing performed by : [facility], [address] [place] [phone] Creatinine 1.84(H) 0.60 - 1.10 mg/dL [facility] Comment:Testing performed by : [facility], [address] [place] [phone] Glucose 121 70 - 199 mg/dL [facility]ER [...] was last revised 2017. Testing performed by: [facility], [address] [place], [place] [phone] Calcium 10.2 8.5 - 10.3 mg/dL [facility] Comment:Testing performed by : [facility], [address] [place] [phone] Bilirubin, total 0.5 0.1 - 1.2 mg/dL [facility] Comment:Testing performed by : [facility], [address] [place] [phone] Protein, pl 6.2(L) 6.5 - 8.5 g/dL [facility] Comment:Testing performed by : [facility], [address] [place] [phone] Albumin 4.1 3.5 - 5.0 g/dL [facility] Comment:Testing performed by : [address] [phone] Alk phos 119 40 - 130 Units/L [facility] Comment:Testing performed by : [address] [phone] ALT 38 7 - 45 Units/L [facility] Comment:Testing performed by : [address] [phone] AST 52(H) 10 - 45 Units/L [facility] Comment:Testing performed by : [facility], [address] [place] [phone] Blood 01/16/2022 10:5 3 AM CDT 01/16/2022 10:56 AM CDT us Eren Cr MD LAB BLOOD ORDERABLES Final Re sult Performing Organization Address City/State/[facility] Co de Phone Number [facility] [place] [address] documented in this encounter Visit Diagnoses Diagnosis Neuro-endocrine carcinoma (HCC) Other malignant neoplasm of unspecified site Neuroendocrine carcinoma (HCC) Other malignant neoplasm of unspecified site 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
--- OUTSIDE RECORDS SUMMARY | 2024-06-26 02:06 | XMS_ITS | Encounter Summary ---
Author Organization [facility] Address [address] [place] [address] Phone Care Team Providers Care Security Strategist Name Role Phone Julio César Briseno MD Primary Care Provider [phone] Eren Cr MD Unavailable [phone] Yohana Bowen MD Unavailable Reason for Visit * Reason Comments Injections sandostatin OP Infusion [place] NS, Imodium, zofr an * Episode Based Medications (Routine) - Authorized Specialty Diagnoses / Procedures Referred By Contac t Referred To Contact Oncology Diagnoses Neuroendocrine carcinoma (HCC) Malignant neoplasm metastatic to liver (HCC) Procedures AK OCTREOTIDE INJECTION, DEPOT Octreotide 28 Day Cycles - Carcinoid Eren Cr MD [address] [facility] [address] [place] [address] Phone: tel: fax: [facility] [address] [address] Phone: tel: fax: Referral ID Status Reason Start Date Expiration Date V isits Requested Visits Authorized [id number] Authorized 11/28/2017 02/05/2025 1 150 Encounter Details Date Type Department Care Team (Late st Contact Info) Description 01/15/2022 2:30 PM CDT Infusion [facility] Oncology [address] 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 [...] First Orde red Date ONCBCN NURSING COMMUNICATION [id number] 01/15 Appointment Requests Count Last Ordered Date Fi rst Ordered Date ONCBCN INJECTION APPOINTMENT REQUEST 1 01/05 documented in this encounter Care Teams Security Strategist Relationship Specialty Start Date End Date Julio César Briseno MD PCP - General 10/01/16 Eren Cr MD Referring Physician Medical Oncology 11/25/18 Yohana Bowen MD Radiation Oncologist Radiation Oncology 11/25/18 documented as of this encounter
--- OUTSIDE RECORDS SUMMARY | 2024-06-26 02:06 | XMS_ITS | Encounter Summary ---
Author Organization [facility] Address [address] [place] [address] Phone Care Team Providers Care Die Tester Name Role Phone Julio César Briseno MD Primary Care Provider [phone] Eren Cr MD Unavailable [phone] Yohana Bowen MD Unavailable Encounter Details Date Type Department Care Team (Late st Contact Info) Description 01/15/2022 Orders Only [facility] Oncology [address] [facility] 7th [place] [address] [place] [address] Eren Cr MD [address] [facility] [address] [place] [address] Neuro-endocrine carcinoma (CMS/HCC) (HCC) (Primary Dx) Social [...] on file Legal Sex Female 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 Gender Identity Not on file Sexual Orientation [...] WBC 3.1(L) 3.8 - 9.8 K/cumm [facility] Comment:Testing performed by : [facility], [address] [place] [phone] Hgb 12.2 12.1 - 15.1 g/dL [facility] Comment:Testing performed by : [facility], [address] [place] [phone] Hct 35.3(L) 36.1 - 44.3 % [facility] Comment:Testing performed by : [facility], [address] [place] [phone] Plt 107(L) 140 - 440 K/cumm [facility] Comment:Testing performed by : [facility], [address] [place] [phone] MPV 9.0 6.8 - 10.4 fL [facility] Comment:Testing performed by : [facility], [address] [place] [phone] RBC 3.46(L) 3.90 - 5.00 M/cumm [facility] Comment:Testing performed by : [facility], [address] [place] [phone] MCV 102.0(H) 80.0 - 97.6 fL [facility] Comment:Testing performed by : [facility], [address] [place] [phone] MCH 35.4(H) 26.7 - 33.7 pg [facility] Comment:Testing performed by : [facility], [address] [place] [phone] MCHC 34.7 32.7 - 35.5 g/dL [facility] Comment:Testing performed by : [facility], [address] [place] [phone] RDW CV 12.6 11.8 - 14.6 % [facility] Comment:Testing performed by : [facility], [address] [place] [address] NRBC abs 0.00 0.00 - 0.01 K/cumm [facility] Comment:Testing performed by : [facility], [address] [place] [phone] Blood 01/16/2022 10:5 3 AM CDT 01/16/2022 10:56 AM CDT Eren Cr MD LAB BLOOD ORDERABLES Final Re sult [facility] One [facility] Department [place] [address] * Phosphorus (01/16/2022 10:53 AM CDT) Phosphorus, pl 2.6 2.3 - 4.5 mg/dL [facility] Comment:Testing performed by : [facility], [address] [place] [phone] Blood 01/16/2022 10:5 3 AM CDT 01/16/2022 10:56 AM CDT Eren Cr MD LAB BLOOD ORDERABLES Final Re sult [facility] One [facility] Department [place] [address] documented in this encounter Visit Diagnoses Diagnosis Neuro-endocrine carcinoma (HCC)- Primary Other malignant neoplasm of unspecified site documented in this encounter Care Teams Die Tester Relationship Specialty Start Date End Date Julio César Briseno MD PCP - General 10/01/16 Eren Cr MD Referring Physician Medical Oncology 11/25/18 Yohana Bowen MD Radiation Oncologist Radiation Oncology 11/25/18 documented as of this encounter
--- OUTSIDE RECORDS SUMMARY | 2024-06-26 02:06 | XMS_ITS | Encounter Summary ---
Author Organization [facility] Healthcare Address [address] [place] [address] Care Team Providers Care Rest Room Attendant Name Role Phone Julio César Briseno MD Primary Care Provider [phone] Eren Cr MD Unavailable [phone] Yohana Bowen MD Unavailable Encounter Details Date Type Department Care Team (Latest Contact Info) Description 01/16/2022 11:12 AM CDT - 01/16/2022 5:25 PM CDT Hospital Encounter [facility] [address] [place] [id number] Hypophosphatemia (Primary Dx); Neuroendocrine carcinoma (CMS/HCC) (HCC) [...] file 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 Gender Identity Not on file Sexual Orientation [...] capsuleIndications :supplement 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 07/04/2016 4 cholecalciferol (VITAMIN D-3) 2,000 unit capsule Take 1 capsule (2,000 Units total) by mouth daily 30 capsule 2 04/25/2019 3 cholestyramine (QUESTRAN) 4 gram packet Take 1 packet by mouth 3 (three) times a day with meals 270 packet 3 09/04/2019 2 clotrimazole-betam ethasone (LOTRISONE) cream Apply 1 Application topically daily as needed (rash) 4 coenzyme [id number]-ipqriji E 100-5 mg-unit capsuleIndications :supplement 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 Avoid [place]'s Wort, grapefruit products and [place] oranges while on treatment. placed on hold 09/26/22 for covid 01/29/2022 4 levothyroxine (Synthroid) 75 mcg tabletIndications: Hypothyroidism due to medication Take 1 tablet (75 mcg total) by mouth captain airline pilot before breakfast 30 tablet 3 11/16/2021 2 [...] 01/16/2022 11:15 AM CDT Pt arrived to [facility] for IVF. PAC accessed prior to [facility] appt. 1L NS infused and tolerated well. [...] mL/hr documented in this encounter Care Teams Rest Room Attendant Relationship Specialty Start Date End Date Julio César Briseno MD PCP - General 10/01/16 Eren Cr MD Referring Physician Medical Oncology 11/25/18 Yohana Bowen MD Radiation Oncologist Radiation Oncology 11/25/18 documented as of this encounter
--- OUTSIDE RECORDS SUMMARY | 2024-06-26 02:07 | XMS_ITS | Encounter Summary ---
Author Organization [facility] Address [address] [place] [address] Phone Care Team Providers Care Noise Tester Name Role Phone Julio César Briseno MD Primary Care Provider Eren Cr MD Unavailable [phone] Yohana Bowen MD Unavailable Encounter Details Date Type Department Care Team (Late st Contact Info) Description 12/11/2021 Orders Only [facility] Surgery [address] [facility] Advanced Medicine 5th [place] [address] [place] [address] Kyra Mitchell MD PhD [address] [facility] [id number] [place] [address] Nipple discharge in female (Primary Dx) Social [...] file 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 Gender Identity Not on file Sexual Orientation Straight 02/19/2021 9: 29 AM CDT Occupation Industry Job Start Date Job End Date retired Not on file Not on file Not on file documented as of this encounter Plan of Treatment Not on file documented as of this encounter Visit Diagnoses Diagnosis Nipple discharge in female- Primary documented in this encounter Care Teams Noise Tester Relationship Specialty Start Date End Date Julio César Briseno MD PCP - General 10/01/16 Eren Cr MD Referring Physician Medical Oncology 11/25/18 Yohana Bowen MD Radiation Oncologist Radiation Oncology 11/25/18 documented as of this encounter
--- OUTSIDE RECORDS SUMMARY | 2024-06-26 02:07 | XMS_ITS | Encounter Summary ---
Author Organization [facility] Address [address] [place] [address] Phone Care Team Providers Care Nursing Support Worker Name Role Phone Julio César Briseno MD Primary Care Provider [phone] Eren Cr MD Unavailable [phone] Yohana Bowen MD Unavailable Sabrina Willard NP Unavailable [phone] Encounter Details Date Type Department Care Team (Late st Contact Info) Description 10/19/2021 Orders Only [facility] Oncology [address] [place] [address] Claude Browning MD [address] [facility] [address] [place] [address] Social History Tobacco Use Types [...] file Legal 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[employer] Gender Identity Not on file Sexual Orientation Straight 02/19/2021 9: 29 AM CDT Occupation Industry Job Start Date Job End Date retired Not on file Not on file Not on file documented as of this encounter Plan of Treatment Not on file documented as of this encounter Visit Diagnoses Not on filedocumented in this encounter Care Teams Nursing Support Worker Relationship Specialty Start Date End Date Julio César Briseno MD PCP - General 10/01/16 Eren Cr MD Referring Physician Medical Oncology 11/25/18 Yohana Bowen MD Radiation Oncologist Radiation Oncology 11/25/18 Sabrina Willard NP [address] [place] [address] Nurse Practitioner Medical Oncology 08/17/20 11/26/21 documented as of this encounter
--- OUTSIDE RECORDS SUMMARY | 2024-06-26 02:07 | XMS_ITS | Encounter Summary ---
Author Organization [facility] Address [address] [place] [address] Phone Care Team Providers Care Windshield Wiper Repairer Name Role Phone Julio César Briseno MD Primary Care Provider Eren Cr MD Unavailable Yohana Bowen MD Unavailable Sabrina Willard NP Unavailable [phone] Encounter Details Date Type Department Care Team (Late st Contact Info) Description 10/09/2021 Orders Only [facility] Oncology [address] [facility] 7th [place] [address] [place] [address] Eren Cr MD [address] [facility] [address] [place] [address] Neuroendocrine carcinoma (CMS/HCC) (HCC) (Primary Dx) Social [...] file 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
--- OUTSIDE RECORDS SUMMARY | 2024-06-26 02:07 | XMS_ITS | Encounter Summary ---
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
--- OUTSIDE RECORDS SUMMARY | 2024-06-26 02:07 | XMS_ITS | Encounter Summary ---
Author Organization [facility] Address [address] [place] [address] Phone Care Team Providers Care Hospitality Ambassador Name Role Phone Julio César Briseno MD Primary Care Provider [phone] Eren Cr MD Unavailable [phone] Yohana Bowen MD Unavailable Sabrina Willard NP Unavailable [phone] Reason for Visit * Episode Based Medications (Routine) - Closed Specialty Diagnoses / Procedures Referred By Contac t Referred To Contact Diagnoses Neuro-endocrine carcinoma (HCC) Procedures study [id number] phase III cabozantinib Eren Cr MD [address] [facility] [address] [place] [address] Phone: tel: fax: [facility] [address] [facility] 7th [place] [address] Phone: tel: Referral ID Status Reason Start Date Expiration Date Visits Re quested Visits Authorized [id number] Closed 06/21/2021 06/26/2024 1 99 Encounter Details Date Type Department Care Team (Late st Contact Info) Description 11/13/2021 1:00 PM CDT Lab [facility] Oncology [address] [facility] 7th [place] [address] [place] [address] Neuro-endocrine carcinoma (CMS/HCC) (HCC) (Primary Dx); Hypophosphatemia [...] 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
--- OUTSIDE RECORDS SUMMARY | 2024-06-26 02:07 | XMS_ITS | Encounter Summary ---
Author Organization [facility] Address [address] [place] [address] Care Team Providers Care Marketing Sales Manager Name Role Phone Julio César Briseno MD Primary Care Provider [phone] Eren Cr MD Unavailable [phone] Yohana Bowen MD Unavailable Encounter Details Date Type Department Care Team (Latest Contact Info) Description 11/27/2021 1:45 PM CDT - 11/27/2021 11:59 PM CDT Hospital Encounter 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 Avoid Jas's Wort, grapefruit products and [place] oranges while on treatment. placed on hold 09/26/22 for covid 01/29/2022 4 levothyroxine (Synthroid) 75 mcg tabletIndications: Hypothyroidism due to medication Take 1 tablet (75 mcg total) by mouth early intervention school psychologist before breakfast 30 tablet 3 11/16/2021 2 [...] Free T4 1.10 0.90 - 1.70 ng/dL [facility] Blood 11/27/2021 1:08 PM CDT 11/27/2021 2:12 PM CDT Narrative [facility] - 11/27/2021 3:10 PM CDT This test was reflexed from a TSH result. us Eren Cr MD LAB BLOOD ORDERABLES Final Re sult [facility] One [facility] Department [place] [address] * (ABNORMAL) eGFR (11/27/2021 1:08 PM CDT) eGFR 66(L) 90 - 130 mL/min/1. 73 m2 [facility] Comment: Interpretive Data Reference Interval [...] was last reviewed 2021. Testing performed by: [facility], [address] [place] [phone] Blood 11/27/2021 1:08 PM CDT 11/27/2021 1:12 PM CDT us Eren Cr MD LAB BLOOD ORDERABLES Final Re sult [facility] One [facility] Department [place] [address] * (ABNORMAL) Differential, auto (11/27/2021 1:08 PM CDT) Neutrophil abs 2.1 1.8 - 6.6 K/cumm [facility] Comment:Testing performed by : [facility], [address] [place] [phone] Lymphocyte abs 0.4(L) 1.2 - 3.3 K/cumm [facility] Comment:Testing performed by : [address] [phone] Monocyte abs 0.3 0.2 - 1.2 K/cumm [facility] Comment:Testing performed by : [facility], [address] [place] [phone] Eosinophil abs 0.5 0.0 - 0.5 K/cumm [facility] Comment:Testing performed by : [facility], [address] [place] [phone] Basophil abs 0.0 0.0 - 0.2 K/cumm [facility] Comment:Testing performed by : [address] [phone] Neutrophil pct 62.1 % [facility] Comment: Interpretive Data Percent cell count reference ranges are not reported, since discordance with absolute values may lead to misinterpretation of CBC data. Current Interpretive Data was last revised on 2017. Testing performed by: [address] [phone] Lymphocyte pct 11.9 % [facility] Comment: Interpretive Data Percent cell count reference ranges are not reported, since discordance with absolute values may lead to misinterpretation of CBC data. Current Interpretive Data was last revised on 2017. Testing performed by: [facility], [address] [place] [phone] Monocyte pct 9.9 % [facility] Comment:Testing performed by : [facility], [address] [place] [phone] Eosinophil pct 15.3 % [facility] Comment:Testing performed by : [facility], [address] [place] [phone] Basophil pct 0.8 % [facility] Comment:Testing performed by : [facility], [address] [place] [phone] Blood 11/27/2021 1:08 PM CDT 11/27/2021 1:12 PM CDT Eren Cr MD LAB BLOOD ORDERABLES Final Re sult Performing Organization Address [facility] de Phone Number [facility] [place] [address] * (ABNORMAL) TSH reflex to free T4 (11/27/2021 1:08 PM CDT) Pathologist [facility] TSH 7.16(H) 0.30 - 4.20 mcIUnit/mL [facility] Blood 11/27/2021 1:08 PM CDT 11/27/2021 2:04 PM CDT Eren Cr MD LAB BLOOD ORDERABLES Final Re sult Performing Organization Address [facility] [place] [address] * (ABNORMAL) CBC with auto differential (11/27/2021 1:08 PM CDT) Pathologist [facility] WBC 3.4(L) 3.8 - 9.8 K/cumm [facility] Comment:Testing performed by : [facility], [address] [place] [phone] Hgb 10.2(L) 12.1 - 15.1 g/dL [facility] Comment:Testing performed by : [facility], [address] [place], [place] [phone] Hct 28.5(L) 36.1 - 44.3 % [facility] Comment:Testing performed by : [facility], [address] [place] [address] Plt 97(L) 140 - 440 K/cumm [facility] Comment:Testing performed by : [place] [phone] MPV 8.3 6.8 - 10.4 fL [facility] Comment:Testing performed by : [facility], [address] [place] [address] RBC 2.69(L) 3.90 - 5.00 M/cumm [facility] Comment:Testing performed by : [place] [address] MCV 105.8(H) 80.0 - 97.6 fL [facility] Comment:Testing performed by : [facility], [address] [place], [place] [phone] MCH 37.9(H) 26.7 - 33.7 pg [facility] Comment: Result consistent with previously reported values. Testing performed by: [place] [phone] MCHC 35.8(H) 32.7 - 35.5 g/dL [facility] Comment:Testing performed by : [place] [phone] RDW CV 18.0(H) 11.8 - 14.6 % [facility] Comment:Testing performed by : [facility], [address] [place], [place] [phone] NRBC abs 0.00 0.00 - 0.01 K/cumm [facility] Comment:Testing performed by : [place] [address] Blood 11/27/2021 1:08 PM CDT 11/27/2021 1:12 PM CDT Eren Cr MD LAB BLOOD ORDERABLES Final Re sult [facility] One [facility] Department [place] [address] * (ABNORMAL) Comprehensive metabolic panel (11/27/2021 1:08 PM CDT) Sodium 141 135 - 145 mmol/L [facility] Comment:Testing performed by : [facility], [address] [place] [phone] Potassium, pl 4.0 3.3 - 4.9 mmol/L [facility] Comment:Testing performed by : [facility], [address] [place] [phone] Chloride 107 97 - 110 mmol/L [facility] Comment:Testing performed by : [facility], [address] [place] [phone] CO2 27 22 - 32 mmol/L [facility] Comment:Testing performed by : [facility], [address] [place] [phone] Anion gap 7 2 - 15 mmol/L [facility] Comment:Testing performed by : [facility], [address] [place] [phone] BUN 15 8 - 25 mg/dL [facility] Comment:Testing performed by : [facility], [address] [place] [phone] Creatinine 0.92 0.60 - 1.10 mg/dL [facility] Comment:Testing performed by : [address] [phone] Glucose 155 70 - 199 mg/dL [facility] Comment: Interpretive Data Fasting glucose >/= 126 [...] was last revised 2017. Testing performed by: [facility], [address] [place] [phone] Calcium 10.3 8.5 - 10.3 mg/dL [facility] Comment:Testing performed by : [facility], [address] [place] [phone] Bilirubin, total 0.6 0.1 - 1.2 mg/dL [facility] Comment:Testing performed by : [facility], [address] [place] [phone] Protein, pl 6.0(L) 6.5 - 8.5 g/dL [facility] Comment:Testing performed by : [facility], [address] [place] [phone] Albumin 4.1 3.5 - 5.0 g/dL [facility] Comment:Testing performed by : [facility], [address] [place] [phone] Alk phos 72 40 - 130 Units/L [facility] Comment:Testing performed by : [facility], [address] [place] [phone] ALT 14 7 - 45 Units/L [facility] Comment:Testing performed by : [facility], [address] [place] [phone] AST 23 10 - 45 Units/L [facility] Comment:Testing performed by : [facility], [address] [place] [phone] Blood 11/27/2021 1:08 PM CDT 11/27/2021 1:12 PM CDT Eren Cr MD LAB BLOOD ORDERABLES Final Re sult [facility] One [facility] Department [place] [address] * Magnesium (11/27/2021 1:08 PM CDT) Magnesium 1.4 1.4 - 2.5 mg/dL [facility] Comment:Testing performed by : [facility], [address] [place] [phone] Blood 11/27/2021 1:08 PM CDT 11/27/2021 1:12 PM CDT Eren Cr MD LAB BLOOD ORDERABLES Final Re sult Performing Organization Address [facility] Co de Phone Number [facility] [place] [address] * Phosphorus (11/27/2021 1:08 PM CDT) Pathologist [facility] Phosphorus, pl 2.5 2.3 - 4.5 mg/dL [facility] Comment:Testing performed by : [facility], [address] [place] [phone] Blood 11/27/2021 1:08 PM CDT 11/27/2021 1:12 PM CDT Result [facility] Eren Cr MD LAB BLOOD ORDERABLES Final Re sult Performing Organization Address [facility] de Phone Number [facility] [place] [address] * Protein / creatinine ratio, urine, random (11/27/2021 12:33 PM CDT) [facility] Protein, ur, quant 19.9 mg/dL [facility] Comment: Interpretive Data No reference range established. Current interpretive data was last revised 2018. Creatinine Ur 191.9 mg/dL [facility] Comment: Interpretive Data No reference range established. Current interpretive data was last revised 2018. Protein/creatinin e ratio 103.7 0.0 - 180.0 mg/g CR [facility] Urine 11/27/2021 12:3 3 PM CDT 11/27/2021 2:06 PM CDT Result [facility] Eren Cr MD LAB URINE ORDERABLES Final Re sult Performing Organization Address [facility] Co de Phone Number [facility] [place] [address] documented in this encounter Visit Diagnoses Diagnosis Neuro-endocrine carcinoma (HCC) Other malignant neoplasm of unspecified site documented in this encounter Care Teams Marketing Sales Manager Relationship Specialty Start Date End Date Julio César Briseno MD PCP - General 10/01/16 Eren Cr MD Referring Physician Medical Oncology 11/25/18 Yohana Bowen MD Radiation Oncologist Radiation Oncology 11/25/18 documented as of this encounter
--- OUTSIDE RECORDS SUMMARY | 2024-06-26 02:07 | XMS_ITS | Encounter Summary ---
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) Procedures [place] OCTREOTIDE INJECTION, DEPOT Octreotide 28 Day Cycles - Carcinoid Eren Cr MD [address] [address] [place] [address] Phone: tel: fax: [address] [address] Phone: tel: fax: Referral ID Status Reason Start Date Expiration Date V isits Requested Visits Authorized [id number] Authorized 11/28/2017 02/05/2025 1 150 Encounter Details Date Type Department Care Team (Latest Contact Info) Description 12/11/2021 9:45 AM CDT Clinical Support [facility] Oncology [address] [place] [address] 7th [place] [address] [place] [address] Neuroendocrine carcinoma (CMS/HCC) (HCC) (Primary Dx); Malignant [...] file 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
--- OUTSIDE RECORDS SUMMARY | 2024-06-26 02:07 | XMS_ITS | Encounter Summary ---
Author Organization [facility] Address [address] [place] [address] Phone Care Team Providers Care Fitness Coordinator Name Role Phone Julio César Briseno MD Primary Care Provider [phone] Eren Cr MD Unavailable [phone] Yohana Bowen MD Unavailable Sabrina Willard NP Unavailable [phone] Reason for Visit * Reason Comments Injections Xgeva and Sandostati n OP Infusion 4 g IV mag * Episode Based Medications (Routine) - Authorized Specialty Diagnoses / Procedures Referred By Contac t Referred To Contact Oncology Diagnoses 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) Procedures [place] OCTREOTIDE INJECTION, DEPOT Octreotide 28 Day Cycles - Carcinoid Eren Cr MD [address] [facility] [address] [place] [address] Phone: tel: fax: [facility] [address] [address] Phone: tel: fax: Referral ID Status Reason Start Date Expiration Date V isits Requested Visits Authorized [id number] Authorized 11/28/2017 02/05/2025 1 150 Encounter Details Date Type Department Care Team (Late st Contact Info) Description 10/16/2021 11:30 AM CDT Infusion [facility] Oncology [address] [facility] 7th [place] [address] Neuroendocrine carcinoma (CMS/HCC) (HCC) (Primary Dx); Malignant [...] on file 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 Gender Identity Not on file Sexual Orientation Straight 02/19/2021 9: 29 AM CDT Occupation Industry Job Start Date Job End Date retired Not on file Not on file Not on file documented as of this encounter Nursing Notes * Lisseth Parker, RN - 10/16/2021 11:30 AM CDT Oncology Nursing Note [facility], [...] First Orde red Date ONCBCN NURSING COMMUNICATION [id number] 1 0 10/16/2021 PHYSICIAN COMMUNICATION ORDER 1 10/16/2021 Appointment Requests Count Last Ordered Date Fi rst Ordered Date ONCBCN INJECTION APPOINTMENT REQUEST 1 10/06 documented in this encounter Care Teams Fitness Coordinator Relationship Specialty Start Date End Date Julio César Briseno MD PCP - General 10/01/16 Eren Cr MD Referring Physician Medical Oncology 11/25/18 Yohana Bowen MD Radiation Oncologist Radiation Oncology 11/25/18 Sabrina Willard NP [address] [place] [address] Nurse Practitioner Medical Oncology 08/17/20 11/26/21 documented as of this encounter
--- OUTSIDE RECORDS SUMMARY | 2024-06-26 02:07 | XMS_ITS | Encounter Summary ---
Author Organization [facility] Address [address] [place] [address] Phone Care Team Providers Care Landfill Gas Technician Name Role Phone Julio César Briseno MD Primary Care Provider [phone] Eren Cr MD Unavailable Yohana Bowen MD Unavailable Sabrina Willard NP Unavailable Encounter Details Date Type Department Care Team (Late st Contact Info) Description 10/12/2021 Orders Only [facility] Oncology [address] [facility] Advanced Medicine 7th [place] [address] [place] [address] Eren Cr MD [address] 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
--- OUTSIDE RECORDS SUMMARY | 2024-06-26 02:07 | XMS_ITS | Encounter Summary ---
Author Organization [facility] Healthcare Address [address] [place] [address] Care Team Providers Care International Marketing Specialist Name Role Phone Julio César Briseno MD Primary Care Provider [phone] Eren Cr MD Unavailable [phone] Yohana Bowen MD Unavailable Sabrina Willard NP Unavailable Encounter Details Date Type Department Care Team (Latest Contact Info) Description 11/13/2021 12:22 PM CDT - 11/13/2021 5:07 PM CDT Hospital Encounter 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 Gender Identity Not on file Sexual [...] capsuleIndications :supplement Take 1 tablet by mouth fixed interest dealer before breakfast 07/04/2016 4 cholecalciferol (VITAMIN D-3) 2,000 unit capsule Take 1 capsule (2,000 Units total) by mouth daily 30 capsule 2 04/25/2019 3 cholestyramine (QUESTRAN) 4 gram packet Take 1 packet by mouth 3 (three) times a day with meals 270 packet 3 09/04/2019 2 clotrimazole-betam ethasone (LOTRISONE) cream Apply 1 Application topically daily as needed (rash) 4 coenzyme [id number] 100-5 mg-unit capsuleIndications :supplement Take 1 tablet by mouth fixed interest dealer before breakfast 4 diphenoxylate-atro pine (LOMOTIL) 2.5-0.025 [...] and 1 hour after each dose).?? Avoid [place]'s Wort, grapefruit products and [place] oranges while on treatment. placed on hold [...] urine, random (11/13/2021 1:30 PM CDT) Pathologist [facility] Protein, ur, quant 71.3 mg/dL [facility] Comment: Interpretive Data No reference range established. Current interpretive data was last revised 2018. Creatinine Ur 519.7 mg/dL [facility] Comment: Interpretive Data No reference range established. Current interpretive data was last revised 2018. Protein/creatinin e ratio 137.2 0.0 - 180.0 mg/g CR [facility] Urine 11/13/2021 1:30 PM CDT 11/13/2021 1:43 PM CDT us Eren Cr MD LAB URINE ORDERABLES Final Re sult [facility] Department [place] [address] * (ABNORMAL) T4, free (11/13/2021 1:05 PM CDT) Pathologist [facility] Free T4 0.70(L) 0.90 - 1.70 ng/dL [facility] Blood 11/13/2021 1:05 PM CDT 11/13/2021 2:04 PM CDT Narrative [facility] - 11/13/2021 3:14 PM CDT This test was reflexed from a TSH result. us Eren Cr MD LAB BLOOD ORDERABLES Edited R esult - Final [facility] Department [place] [address] * (ABNORMAL) eGFR (11/13/2021 1:05 PM CDT) eGFR 46(L) 90 - 130 mL/min/1. 73 m2 [facility] Comment: Interpretive Data Reference Interval Normal [...] was last reviewed 2021. Testing performed by: [facility], [address] [place] [phone] Blood 11/13/2021 1:05 PM CDT 11/13/2021 1:09 PM CDT Eren Cr MD LAB BLOOD ORDERABLES Final Re sult Performing Organization Address City/[facility]/ZIP Co de Phone Number [facility] [place] [address] * Morphologic screen (11/13/2021 1:05 PM CDT) Morphologic Screen Original results obtained required verification by peripheral smear. [facility] Blood 11/13/2021 1:05 PM CDT 11/13/2021 1:09 PM CDT Eren Cr MD LAB BLOOD ORDERABLES Final Re sult Performing Organization Address [facility] de Phone Number [facility] Department [place] [address] * (ABNORMAL) Differential, auto (11/13/2021 1:05 PM CDT) Neutrophil abs 2.8 1.8 - 6.6 K/cumm [facility] Comment:Testing performed by : [facility], [address] [place] [phone] Lymphocyte abs 0.5(L) 1.2 - 3.3 K/cumm [facility] Comment:Testing performed by : [facility], [address] [place] [phone] Monocyte abs 0.3 0.2 - 1.2 K/cumm [facility] Comment:Testing performed by : [facility], [address] [place] [phone] Eosinophil abs 0.5 0.0 - 0.5 K/cumm [facility] Comment:Testing performed by : [facility], [address] [place] [phone] Basophil abs 0.0 0.0 - 0.2 K/cumm [facility] Comment:Testing performed by : [facility], [address] [place] [phone] Neutrophil pct 66.8 % [facility] Comment: Interpretive Data Percent cell count reference ranges are not reported, since discordance with absolute values may lead to misinterpretation of CBC data. Current Interpretive Data was last revised on 2017. Testing performed by: [facility], [address] [place] [phone] Lymphocyte pct 12.7 % [facility] Comment: Interpretive Data Percent cell count reference ranges are not reported, since discordance with absolute values may lead to misinterpretation of CBC data. Current Interpretive Data was last revised on 2017. Testing performed by: [facility], [address] [place] [phone] Monocyte pct 7.2 % [facility] Comment:Testing performed by : [facility], [address] [place] [phone] Eosinophil pct 12.6 % [facility] Comment:Testing performed by : [facility], [address] [place] [phone] Basophil pct 0.7 % [facility] Comment:Testing performed by : [facility], [address] [place] [phone] Blood 11/13/2021 1:05 PM CDT 11/13/2021 1:09 PM CDT Eren Cr MD LAB BLOOD ORDERABLES Final Re sult [facility] Department [place] [address] * (ABNORMAL) Magnesium (11/13/2021 1:05 PM CDT) Magnesium 1.1(L) 1.4 - 2.5 mg/dL [facility] Comment:Testing performed by : [facility], [address] [place] [phone] Blood 11/13/2021 1:05 PM CDT 11/13/2021 1:09 PM CDT Eren Cr MD LAB BLOOD ORDERABLES Final Re sult Performing Organization Address [facility] de Phone Number [facility] [place] [address] * (ABNORMAL) TSH reflex to free T4 (11/13/2021 1:05 PM CDT) TSH 16.00(H) 0.30 - 4.20 mcIUnit/mL [facility] Blood 11/13/2021 1:05 PM CDT 11/13/2021 1:57 PM CDT Eren Cr MD LAB BLOOD ORDERABLES Final Re sult Performing Organization Address [facility] de Phone Number [facility] [place] [address] * (ABNORMAL) Lipid panel (11/13/2021 1:05 PM CDT) Cholesterol 177 30 - 199 mg/dL [facility] revised on 2018. Triglycerides 174(H) <=149 mg/dL [facility] Comment: Interpretive Data Ages < [...] revised on 2018. HDL 55 >=40 mg/dL [facility] Comment: [...] 2018. LDL, calculated 87 <=129 mg/dL [facility] Comment: Interpretive Data [...] revised on 2018. Non-HDL Cholesterol 122 mg/dL [facility] Comment: Interpretive [...] on 2018. Chol/HDL ratio 3 [facility] Blood 11/13/2021 1:05 PM CDT 11/13/2021 1:57 PM CDT Eren Cr MD LAB BLOOD ORDERABLES Final Re sult Performing Organization Address [facility] Co de Phone Number [facility] Department [place] [address] * Phosphorus (11/13/2021 1:05 PM CDT) Phosphorus, pl 2.5 2.3 - 4.5 mg/dL [facility] Comment:Testing performed by : [facility], [address] [place] [phone] Blood 11/13/2021 1:05 PM CDT 11/13/2021 1:09 PM CDT Eren Cr MD LAB BLOOD ORDERABLES Final Re sult [facility] Department [place] [address] * (ABNORMAL) Vitamin D 25 hydroxy (11/13/2021 1:05 PM CDT) [facility] Vitamin D 25-OH 22(L) 30 - 80 ng/mL [facility] Blood 11/13/2021 1:05 PM CDT 11/13/2021 1:57 PM CDT Eren Cr MD LAB BLOOD ORDERABLES Final Re sult Performing Organization Address [facility] Co de Phone Number [facility] Department [place] [address] * (ABNORMAL) CBC with auto differential (11/13/2021 1:05 PM CDT) [facility] WBC 4.2 3.8 - 9.8 K/cumm [facility] Comment:Testing performed by : [facility], [address] [place] [phone] Hgb 11.1(L) 12.1 - 15.1 g/dL [facility] Comment:Testing performed by : [facility], [address] [place] [phone] Hct 32.0(L) 36.1 - 44.3 % [facility] Comment:Testing performed by : [facility], [address] [place] [phone] Plt 110(L) 140 - 440 K/cumm [facility] Comment:Testing performed by : [facility], [address] [place] [phone] MPV 9.1 6.8 - 10.4 fL [facility] Comment:Testing performed by : [facility], [address] [place] [phone] RBC 3.15(L) 3.90 - 5.00 M/cumm [facility] Comment:Testing performed by : [facility], [address] [place] [phone] MCV 101.6(H) 80.0 - 97.6 fL [facility] Comment:Testing performed by : [facility], [address] [place] [phone] MCH 35.1(H) 26.7 - 33.7 pg [facility] Comment:Testing performed by : [facility], [address] [place] [phone] MCHC 34.6 32.7 - 35.5 g/dL [facility] Comment:Testing performed by : [facility], [address] [place] [phone] RDW CV 21.1(H) 11.8 - 14.6 % [facility] Comment:Testing performed by : [facility], [address] [place] [phone] NRBC abs NA 0.00 - 0.01 K/cumm [facility] Comment:Testing performed by : [facility], [address] [place] [phone] Blood 11/13/2021 1:05 PM CDT 11/13/2021 1:09 PM CDT us Eren Cr MD LAB BLOOD ORDERABLES Final Re sult [facility] Department [place] [address] * (ABNORMAL) Comprehensive metabolic panel (11/13/2021 1:05 PM CDT) Sodium 142 135 - 145 mmol/L [facility] Comment:Testing performed by : [facility], [address] [place] [phone] Potassium, pl 3.6 3.3 - 4.9 mmol/L [facility] Comment:Testing performed by : [facility], [address] [place] [phone] Chloride 105 97 - 110 mmol/L [facility] Comment:Testing performed by : [facility], [address] [place] [phone] CO2 27 22 - 32 mmol/L [facility] Comment:Testing performed by : [facility], [address] [place] [phone] Anion gap 11 2 - 15 mmol/L [facility] Comment:Testing performed by : [facility], [address] [place] [phone] BUN 15 8 - 25 mg/dL [facility] Comment:Testing performed by : [facility], [address] [place] [phone] Creatinine 1.25(H) 0.60 - 1.10 mg/dL [facility] Comment:Testing performed by : [facility], [address] [place] [phone] Glucose 141 70 - 199 mg/dL [facility] [...] was last revised 2017. Testing performed by: [facility], [address] [place] [phone] Calcium 10.6(H) 8.5 - 10.3 mg/dL [facility] Comment:Testing performed by : [facility], [address] [place] [phone] Bilirubin, total 0.7 0.1 - 1.2 mg/dL [facility] Comment:Testing performed by : [facility], [address] [place] [phone] Protein, pl 6.2(L) 6.5 - 8.5 g/dL [facility] Comment:Testing performed by : [address] [phone] Albumin 4.0 3.5 - 5.0 g/dL [facility] Comment:Testing performed by : [address] [phone] Alk phos 82 40 - 130 Units/L [facility] Comment:Testing performed by : [facility], [address] [facility] [phone] ALT 25 7 - 45 Units/L [facility] Comment:Testing performed by : [facility], [address] [facility] [phone] AST 38 10 - 45 Units/L [facility] Comment:Testing performed by : [facility], [address] [place] [phone] Blood 11/13/2021 1:05 PM CDT 11/13/2021 1:09 PM CDT Eren Cr MD LAB BLOOD ORDERABLES Final Re sult [facility] Department [place] [address] * (ABNORMAL) Chromogranin A (11/13/2021 1:05 PM CDT) Chromogranin A 653(H) <93 ng/mL [facility] Comment: Impaired renal or hepatic function or treatment with proton pump inhibitors may result in artifactual elevations of Chromogranin A. ADDITIONAL INFORMATION This test was developed and its performance characteristics determined by [facility] in a manner consistent with CLIA [...] a homogeneous time-resolved immunofluorescent assay manufactured by [employer] and performed on the [employer] Plus. ? Values obtained with different assay methods or kits may be different and cannot be used interchangeably. ? Test results cannot be interpreted as absolute evidence for the presence or absence of malignant disease. Test Performed by: [facility] [address] [place] [address] Dividend Deposit Voucher Clerk: Immanuel Novak M.D. Ph.D.; CLIA# [id number] Blood 11/13/2021 1:05 PM CDT 11/13/2021 5:06 PM CDT us Eren Cr MD LAB BLOOD ORDERABLES Final Re sult [facility] Department [place] [address] documented in this encounter Visit Diagnoses Diagnosis Neuroendocrine carcinoma (HCC) Other malignant neoplasm of unspecified site Malignant neoplasm metastatic to liver (HCC) Neuro-endocrine carcinoma (HCC) Other malignant neoplasm of unspecified site documented in this encounter Care Teams International Marketing Specialist Relationship Specialty Start Date End Date Julio César Briseno MD PCP - General 10/01/16 Eren Cr MD Referring Physician Medical Oncology 11/25/18 Yohana Bowen MD Radiation Oncologist Radiation Oncology 11/25/18 Sabrina Willard NP [address] [place] [address] Nurse Practitioner Medical Oncology 08/17/20 11/26/21 documented as of this encounter
--- OUTSIDE RECORDS SUMMARY | 2024-06-26 02:07 | XMS_ITS | Encounter Summary ---
Author Organization [facility] Address [address] [place] [address] Phone Care Team Providers Care Construction Project Assistant Name Role Phone Julio César Briseno MD Primary Care Provider Eren Cr MD Unavailable [phone] Yohana Bowen MD Unavailable Sabrina Willard NP Unavailable [phone] Encounter Details Date Type Department Care Team (Late st Contact Info) Description 11/16/2021 Orders Only [facility] [address] [facility] Advanced Medicine 7th [place] [address] [place] [phone] Julio César Valderrama MD [address] [place] [address] Hypomagnesemia (Primary Dx); Neuroendocrine carcinoma (CMS/HCC) (HCC) [...] file 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
--- OUTSIDE RECORDS SUMMARY | 2024-06-26 02:07 | XMS_ITS | Encounter Summary ---
Author Organization [facility] Address [address] [place] [address] Phone Care Team Providers Care Chemist Organic Name Role Phone Julio César Briseno MD Primary Care Provider [phone] Eren Cr MD Unavailable [phone] Yohana Bowen MD Unavailable Sabrina Willard NP Unavailable [phone] Reason for Visit * Episode Based Medications (Routine) - Closed Specialty Diagnoses / Procedures Referred By Contac t Referred To Contact Diagnoses Neuro-endocrine carcinoma (HCC) Procedures study [id number] phase III cabozantinib Eren Cr MD [address] [facility] [address] [place] [address] Phone: tel: fax: [facility] [address] [facility] 7th [place] [address] Phone: tel: Referral ID Status Reason Start Date Expiration Date Visits Re quested Visits Authorized [id number] Closed 06/21/2021 06/26/2024 1 99 Encounter Details Date Type Department Care Team (Late st Contact Info) Description 11/13/2021 1:45 PM CDT Office Visit [facility] [address] [facility] 7th [place] [address] [place] [address] Eren Cr MD [address] [facility] [address] [place] [address] Neuro-endocrine carcinoma (CMS/HCC) (HCC) (Primary Dx); Bone [...] on file 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 Greyson Reeves. Biopsy [...] balls of feet. Mild erythema. 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 ?? Ngozi Napier, ARIELA, [facility]- Nurse Practitioner, Medical Oncology Cosigned [...] a homogeneous time-resolved immunofluorescent assay manufactured by [employer] and performed on the [employer] Compact Plus. ? Values obtained with different assay methods or kits may be different and cannot be used interchangeably. ? Test results cannot be interpreted as absolute evidence for the presence or absence of malignant disease. Test Performed by: [facility] [address] [place] [address] [employer] Operator: Immanuel Novak M.D. Ph.D.; IA# [id number] Blood 12/11/2021 11:2 2 AM CDT 12/11/2021 11:34 AM CDT us Eren Cr MD LAB BLOOD ORDERABLES Final Re sult [facility] Department [place] [address] * (ABNORMAL) Comprehensive metabolic panel (12/11/2021 11:22 AM CDT) Sodium 138 135 - 145 mmol/L [facility] Comment:Testing performed by : [facility], [address] [place] [phone] Potassium, pl 3.7 3.3 - 4.9 mmol/L [facility] Comment:Testing performed by : [facility], [address] [place] [phone] Chloride 107 97 - 110 mmol/L [facility] Comment:Testing performed by : [facility], [address] [place] [phone] CO2 27 22 - 32 mmol/L [facility] Comment:Testing performed by : [facility], [address] [place] [phone] Anion gap 4 2 - 15 mmol/L [facility] Comment:Testing performed by : [facility], [address] [place] [phone] BUN 15 8 - 25 mg/dL [facility] Comment:Testing performed by : [facility], [address] [place] [phone] Creatinine 0.93 0.60 - 1.10 mg/dL [facility] Comment:Testing performed by : [facility], [address] [place] [phone] Glucose 117 70 - 199 mg/dL [facility] [...] last revised 2017. Testing performed by: [facility], [address] [place], [place] [id number] Calcium 10.0 8.5 - 10.3 mg/dL [facility] Comment:Testing performed by : [address] Bilirubin, total 0.6 0.1 - 1.2 mg/dL [facility] Comment:Testing performed by : [place] [phone] Protein, pl 6.1(L) 6.5 - 8.5 g/dL [facility] Comment:Testing performed by : [address] [address] Albumin 4.0 3.5 - 5.0 g/dL [facility] Comment:Testing performed by : [address] [address] Alk phos 77 40 - 130 Units/L [facility] Comment:Testing performed by : [place] [phone] ALT 22 7 - 45 Units/L [facility] Comment:Testing performed by : [address] [address] AST 32 10 - 45 Units/L [facility] Comment:Testing performed by : [address] [phone] Blood 12/11/2021 11:2 2 AM CDT 12/11/2021 11:26 AM CDT us Eren Cr MD LAB BLOOD ORDERABLES Final Re sult [facility] [place] [address] * (ABNORMAL) CBC with auto differential (12/11/2021 11:22 AM CDT) WBC 3.7(L) 3.8 - 9.8 K/cumm [facility] Comment:Testing performed by : [facility], [address] [place] [phone] Hgb 11.6(L) 12.1 - 15.1 g/dL [facility] Comment:Testing performed by : [facility], [address] [place] [phone] Hct 32.8(L) 36.1 - 44.3 % [facility] Comment:Testing performed by : [place] [phone] Plt 110(L) 140 - 440 K/cumm [facility] Comment:Testing performed by : [facility], [address] [place] [phone] MPV 8.8 6.8 - 10.4 fL [facility] Comment:Testing performed by : [address] [phone] RBC 3.13(L) 3.90 - 5.00 M/cumm [facility] Comment:Testing performed by : [address] [address] MCV 104.5(H) 80.0 - 97.6 fL [facility] Comment:Testing performed by : [facility], [address] [place] [phone] MCH 37.0(H) 26.7 - 33.7 pg [facility] Comment:Testing performed by : [address] [address] MCHC 35.4 32.7 - 35.5 g/dL [facility] Comment:Testing performed by : [address] [address] RDW CV 14.3 11.8 - 14.6 % [facility] Comment:Testing performed by : [facility], [address] [place] [phone] NRBC abs 0.00 0.00 - 0.01 K/cumm [facility] Comment:Testing performed by : [facility], [address] [place] [phone] Blood 12/11/2021 11:2 2 AM CDT 12/11/2021 11:26 AM CDT Eren Cr MD LAB BLOOD ORDERABLES Final Re sult Performing Organization Address [facility]/[place] [address] * (ABNORMAL) Vitamin D 25 hydroxy (12/11/2021 11:22 AM CDT) Pathologist [facility] Vitamin D 25-OH 20(L) 30 - 80 ng/mL [facility] Blood 12/11/2021 11:2 2 AM CDT 12/11/2021 11:48 AM CDT Eren Cr MD LAB BLOOD ORDERABLES Final Re sult Performing Organization Address [facility] [[email or web address]] [place] [address] * (ABNORMAL) Phosphorus (12/11/2021 11:22 AM CDT) Phosphorus, pl 1.8(L) 2.3 - 4.5 mg/dL [facility] Comment:Testing performed by : [facility], [address] [place] [phone] Blood 12/11/2021 11:2 2 AM CDT 12/11/2021 11:26 AM CDT Eren Cr MD LAB BLOOD ORDERABLES Final Re sult Performing Organization Address [facility] [[email or web address]] Co de Phone Number [facility] of Laboratories [place] [phone] * (ABNORMAL) Lipid panel (12/11/2021 11:22 AM CDT) [facility] Signature Cholesterol 165 30 - 199 mg/dL [facility] Comment: Interpretive Data Ages < [...] on 2018. Triglycerides 203(H) <=149 mg/dL [facility] Comment: Interpretive Data Ages < [...] revised on 2018. HDL 52 >=40 mg/dL [facility] Comment: [...] on 2018. LDL, calculated 72 <=129 mg/dL [facility] Comment: [...] revised on 2018. Non-HDL Cholesterol 113 mg/dL [facility] Comment: Interpretive [...] ratio 3 [facility] Blood 12/11/2021 11:2 2 AM CDT 12/11/2021 11:48 AM CDT Eren Cr MD LAB BLOOD ORDERABLES Final Re sult Performing Organization Address [facility] [[email or web address]] Co de Phone Number [facility] [place] [address] * Phosphorus (11/27/2021 1:08 PM CDT) Phosphorus, pl 2.5 2.3 - 4.5 mg/dL [facility] Comment:Testing performed by : [facility], [address] [place] [phone] Blood 11/27/2021 1:08 PM CDT 11/27/2021 1:12 PM CDT Eren Cr MD LAB BLOOD ORDERABLES Final Re sult Performing Organization Address [facility] de Phone Number [place], [place] [phone] * Magnesium (11/27/2021 1:08 PM CDT) Magnesium 1.4 1.4 - 2.5 mg/dL [facility] Comment:Testing performed by : [facility], [address] [place] [phone] Blood 11/27/2021 1:08 PM CDT 11/27/2021 1:12 PM CDT Eren Cr MD LAB BLOOD ORDERABLES Final Re sult Performing Organization Address City/[facility] [[email or web address]] Co de Phone Number [facility] [place] [address] * (ABNORMAL) Comprehensive metabolic panel (11/27/2021 1:08 PM CDT) Sodium 141 135 - 145 mmol/L [facility] Comment:Testing performed by : [facility], [address] [place] [phone] Potassium, pl 4.0 3.3 - 4.9 mmol/L [facility] Comment:Testing performed by : [facility], [address] [place] [phone] Chloride 107 97 - 110 mmol/L [facility] Comment:Testing performed by : [facility], [address] [place] [phone] CO2 27 22 - 32 mmol/L [facility] Comment:Testing performed by : [facility], [address] [place] [phone] Anion gap 7 2 - 15 mmol/L [facility] Comment:Testing performed by : [facility], [address] [place] [phone] BUN 15 8 - 25 mg/dL [facility] Comment:Testing performed by : [facility], [address] [place] [phone] Creatinine 0.92 0.60 - 1.10 mg/dL [facility] Comment:Testing performed by : [facility], [address] [place] [phone] Glucose 155 70 - 199 mg/dL [facility] [...] was last revised 2017. Testing performed by: [address] [phone] Calcium 10.3 8.5 - 10.3 mg/dL [facility] Comment:Testing performed by : [facility], [address] [place] [phone] Bilirubin, total 0.6 0.1 - 1.2 mg/dL [facility] Comment:Testing performed by : [facility], [address] [place] [phone] Protein, pl 6.0(L) 6.5 - 8.5 g/dL [facility] Comment:Testing performed by : [facility], [address] [place] [phone] Albumin 4.1 3.5 - 5.0 g/dL [facility] Comment:Testing performed by : [facility], [address] [place] [phone] Alk phos 72 40 - 130 Units/L [facility] Comment:Testing performed by : [facility], [address] [place] [phone] ALT 14 7 - 45 Units/L [facility] Comment:Testing performed by : [facility], [address] [place] [phone] AST 23 10 - 45 Units/L [facility] Comment:Testing performed by : [facility], [address] [place] [phone] Blood 11/27/2021 1:08 PM CDT 11/27/2021 1:12 PM CDT us Eren Cr MD LAB BLOOD ORDERABLES Final Re sult [facility] Department [place] [address] * (ABNORMAL) CBC with auto differential (11/27/2021 1:08 PM CDT) WBC 3.4(L) 3.8 - 9.8 K/cumm [facility] Comment:Testing performed by : [facility], [address] [place] [phone] Hgb 10.2(L) 12.1 - 15.1 g/dL [facility] Comment:Testing performed by : [facility], [address] [place], [place] [phone] Hct 28.5(L) 36.1 - 44.3 % [facility] Comment:Testing performed by : [facility], [address] [place] [address] Plt 97(L) 140 - 440 K/cumm [facility] Comment:Testing performed by : [place] [phone] MPV 8.3 6.8 - 10.4 fL [facility] Comment:Testing performed by : [facility], [address] [place] [address] RBC 2.69(L) 3.90 - 5.00 M/cumm [facility] Comment:Testing performed by : [place] [address] MCV 105.8(H) 80.0 - 97.6 fL [facility] Comment:Testing performed by : [facility], [address] [place], [place] [phone] MCH 37.9(H) 26.7 - 33.7 pg [facility] Comment: Result consistent with previously reported values. Testing performed by: [place] [phone] MCHC 35.8(H) 32.7 - 35.5 g/dL [facility] Comment:Testing performed by : [place] [address] RDW CV 18.0(H) 11.8 - 14.6 % [facility] Comment:Testing performed by : [facility], [address] [place], [place] [phone] NRBC abs 0.00 0.00 - 0.01 K/cumm [facility] Comment:Testing performed by : [place] [phone] Blood 11/27/2021 1:08 PM CDT 11/27/2021 1:12 PM CDT Eren Cr MD LAB BLOOD ORDERABLES Final Re sult Performing Organization Address [facility] [[email or web address]] Co de Phone Number [facility] Department [place] [address] * (ABNORMAL) TSH reflex to free T4 (11/27/2021 1:08 PM CDT) TSH 7.16(H) 0.30 - 4.20 mcIUnit/mL [facility] Blood 11/27/2021 1:08 PM CDT 11/27/2021 2:04 PM CDT Eren Cr MD LAB BLOOD ORDERABLES Final Re sult Performing Organization Address [facility] [[email or web address]] Co de Phone Number [facility] [place] [address] * Protein / creatinine ratio, urine, random (11/27/2021 12:33 PM CDT) Protein, ur, quant 19.9 mg/dL [facility] Comment: Interpretive Data No reference range established. Current interpretive data was last revised 2018. Creatinine Ur 191.9 mg/dL [facility] Comment: Interpretive Data No reference range established. Current interpretive data was last revised 2018. Protein/creatinin e ratio 103.7 0.0 - 180.0 mg/g CR [facility] Urine 11/27/2021 12:3 3 PM CDT 11/27/2021 2:06 PM CDT Eren Cr MD LAB URINE ORDERABLES Final Re sult Performing Organization Address [facility] [[email or web address]] Co de Phone Number [facility] [place] [address] documented in this encounter Visit Diagnoses Diagnosis [...] 22 documented in this encounter Care Teams Chemist Organic Relationship Specialty Start Date End Date Julio César Briseno MD PCP - General 10/01/16 Eren Cr MD Referring Physician Medical Oncology 11/25/18 Yohana Bowen MD Radiation Oncologist Radiation Oncology 11/25/18 Sabrina Willard, COMMUNICATIONS MANAGER [address] [place] [address] Nurse Practitioner Medical Oncology 08/17/20 11/26/21 documented as of this encounter
--- OUTSIDE RECORDS SUMMARY | 2024-06-26 02:07 | XMS_ITS | Encounter Summary ---
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) Procedures [place] DENOSUMAB INJECTION DENOSUMAB (XGEVA) Eren Cr MD [address] [place] [address] Phone: tel: fax: [facility] [address] [facility] Advanced Medicine 7th [place] [address] Phone: tel: Referral ID Status Reason Start Date Expiration Date V isits Requested Visits Authorized [id number] Authorized 03/02/2019 10/06/2024 1 60 Encounter Details Date Type Department Care Team (Latest Contact Info) Description 10/13/2021 7:25 AM CDT - 10/13/2021 9:24 AM CDT Hospital Encounter [facility] ([place]) [address] [place] [address] Eren Cr MD [address] [facility] [address] [place] [address] Neuroendocrine carcinoma (CMS/HCC) (HCC) (Primary Dx) Discharge [...] on file 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 Identity Not on file Sexual [...] with simethicone-diphen hydramine-lidocain e (MAGIC MOUTHWASH) suspension 0-6-7Merrhuyjppd:N euro-endocrine carcinoma (HCC),Oral mucositis Swish and swallow 10 mL every 4 (four) hours as needed (oral mucositis) 240 mL 2 09/19/2021 2 albuterol HFA (PROVENTIL HFA,VENTOLIN HFA,PROAIR HFA) 90 mcg/actuation inhaler INHALE 1 PUFF BY MOUTH EVERY 4 HOURS 03/24/2021 2 ascorbic acid, vitamin C, 500 mg capsuleIndications :supplement Take 1 tablet by mouth drapery operator before breakfast 07/04/2016 4 cholecalciferol (VITAMIN D-3) 2,000 unit capsule Take 1 capsule (2,000 Units total) by mouth daily 30 capsule 2 04/25/2019 3 cholestyramine (QUESTRAN) 4 gram packet Take 1 packet by mouth 3 (three) times a day with meals 270 packet 3 09/04/2019 2 clotrimazole-betam ethasone (LOTRISONE) cream Apply 1 Application topically daily as needed (rash) 4 coenzyme I50-dgucdxy E 100-5 mg-unit capsuleIndications :supplement Take 1 tablet by mouth drapery operator before breakfast 4 denosumab (XGEVA) 120 mg/1.7 [...] and 1 hour after each dose).?? Avoid [place]'s Wort, grapefruit products and [place] oranges while on treatment. placed on hold [...] 10/13/2021 9:22 AM CDT Patient arrived to [facility] for IVF. Plan of care reviewed with [...] 10/13/2021 documented in this encounter Care Teams Animal Trainer Supervisor Relationship Specialty Start Date End Date Julio César Briseno MD PCP - General 10/01/16 Eren Cr MD Referring Physician Medical Oncology 11/25/18 Yohana Bowen MD Radiation Oncologist Radiation Oncology 11/25/18 Sabrina Willard NP [address] [place] [address] Nurse Practitioner Medical Oncology 08/17/20 11/26/21 documented as of this encounter
--- OUTSIDE RECORDS SUMMARY | 2024-06-26 02:07 | XMS_ITS | Encounter Summary ---
Author Organization [facility] Address [address] [place] [address] Phone Care Team Providers Care Health Education Aide Name Role Phone Julio César Briseno MD Primary Care Provider Eren Cr MD Unavailable [phone] Yohana Bowen MD Unavailable Sabrina Willard NP Unavailable [phone] Encounter Details Date Type Department Care Team (Late st Contact Info) Description 10/17/2021 Orders Only [facility] Oncology [address] [place] [address] Claude Browning MD [address] [facility] [address] [place] [address] Social History Tobacco Use Types [...] file 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 Gender Identity Not on file Sexual Orientation Straight 02/19/2021 9: 29 AM CDT Occupation Industry Job Start Date Job End Date retired Not on file Not on file Not on file documented as of this encounter Plan of Treatment Not on file documented as of this encounter Visit Diagnoses Not on filedocumented in this encounter Care Teams Health Education Aide Relationship Specialty Start Date End Date Julio César Briseno MD PCP - General 10/01/16 Eren Cr MD Referring Physician Medical Oncology 11/25/18 Yohana Bowen MD Radiation Oncologist Radiation Oncology 11/25/18 Sabrina Willard NP [address] [place] [address] Nurse Practitioner Medical Oncology 08/17/20 11/26/21 documented as of this encounter
--- OUTSIDE RECORDS SUMMARY | 2024-06-26 02:07 | XMS_ITS | Encounter Summary ---
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) Procedures [place] OCTREOTIDE INJECTION, DEPOT Octreotide 28 Day Cycles - Carcinoid Eren Cr MD [address] [facility] [address] [place] [address] Phone: tel: fax: [facility] [address] [address] Phone: tel: fax: Referral ID Status Reason Start Date Expiration Date V isits Requested Visits Authorized [id number] Authorized 11/28/2017 02/05/2025 1 150 Encounter Details Date Type Department Care Team (Late st Contact Info) Description 10/16/2021 10:30 AM CDT Office Visit [facility] [address] [facility] 7th [place] [address] [place] [address] Joelle Eugene NP [address] [place] [address] Neuro-endocrine carcinoma (CMS/HCC) (HCC) (Primary Dx); Bone [...] file Legal Sex Female 2:41 PM SCIENCE SPECIALIST Gender Identity Not on file Sexual [...] Body Mass Index 31.15 07/17/2021 2:15 PM SCIENCE SPECIALIST documented in this encounter Progress Notes * [...] No rashes over exposed skin NEURO: A&Ox4, baker paint grossly intact by conversation, moving all extremities [...] their satisfaction and they verbalized understanding. ?? Kdear Eugene RN, ANTENNA RIGGER-C Nurse Practitioner, Medical Oncology Cosigned by Eren Cr Jr., MD at 10/26/2021 3:07 PM CDT documented in this encounter Plan of Treatment Not on file documented as of this encounter Results * Protein / creatinine ratio, urine, random (11/13/2021 1:30 PM CDT) Pathologist [facility] Protein, ur, quant 71.3 mg/dL [facility] Comment: Interpretive Data No reference range established. Current interpretive data was last revised 2018. Creatinine Ur 519.7 mg/dL [facility] Comment: Interpretive Data No reference range established. Current interpretive data was last revised 2018. Protein/creatinin e ratio 137.2 0.0 - 180.0 mg/g CR [facility] Urine 11/13/2021 1:30 PM CDT 11/13/2021 1:43 PM CDT Eren Cr MD LAB URINE ORDERABLES Final Re sult Performing Organization Address [facility] Co de Phone Number [facility] Department [place] [address] * (ABNORMAL) TSH reflex to free T4 (11/13/2021 1:05 PM CDT) [facility] TSH 16.00(H) 0.30 - 4.20 mcIUnit/mL [facility] Blood 11/13/2021 1:05 PM CDT 11/13/2021 1:57 PM CDT Eren Cr MD LAB BLOOD ORDERABLES Final Re sult Performing Organization Address City[facility]/ZIP Co de Phone Number [facility] Department [place] [address] * (ABNORMAL) Chromogranin A (11/13/2021 1:05 PM CDT) [facility] Chromogranin A 653(H) <93 ng/mL [facility] Comment: Impaired renal or hepatic function or treatment with proton pump inhibitors may result in artifactual elevations of Chromogranin A. ADDITIONAL INFORMATION This test was developed and its performance characteristics determined by [facility] in a manner consistent with CLIA [...] a homogeneous time-resolved immunofluorescent assay manufactured by [employer] and performed on the [employer] Compact Plus. ? Values obtained with different assay methods or kits may be different and cannot be used interchangeably. ? Test results cannot be interpreted as absolute evidence for the presence or absence of malignant disease. Test Performed by: [facility] [address] [place] [address] Dictaphone Technician: Immanuel Novak M.D. Ph.D.; CLIA# [id number] Blood 11/13/2021 1:05 PM CDT 11/13/2021 5:06 PM CDT Eren Cr MD LAB BLOOD ORDERABLES Final Re sult JASON BLACK [facility] Department [place] [address] * (ABNORMAL) Comprehensive metabolic panel (11/13/2021 1:05 PM CDT) Sodium 142 135 - 145 mmol/L JASON LEAVITT Comment:Testing performed by : [facility], [address] [place] [phone] Potassium, pl 3.6 3.3 - 4.9 mmol/L JASON LEAVITT Comment:Testing performed by : [facility], [address] [place] [phone] Chloride 105 97 - 110 mmol/L CERNER BJ Comment:Testing performed by : [facility], [address] [place] [phone] CO2 27 22 - 32 mmol/L CERNER [facility] Comment:Testing performed by : [facility], [address] [place] [phone] Anion gap 11 2 - 15 mmol/L CERNER BJ Comment:Testing performed by : [facility], [address] [place] [phone] BUN 15 8 - 25 mg/dL CERNER BJ Comment:Testing performed by : [facility], [address] [place] [phone] Creatinine 1.25(H) 0.60 - 1.10 mg/dL CERNER [facility] Comment:Testing performed by : [facility], [address] [place] [phone] Glucose 141 70 - 199 mg/dL CERNER [...] was last revised 2017. Testing performed by: [facility], [address] [place] [phone] Calcium 10.6(H) 8.5 - 10.3 mg/dL CERNER BJ Comment:Testing performed by : [facility], [address] [place] [phone] Bilirubin, total 0.7 0.1 - 1.2 mg/dL CERNER BJ Comment:Testing performed by : [facility], [address] [place] [phone] Protein, pl 6.2(L) 6.5 - 8.5 g/dL CERNER BJ Comment:Testing performed by : [facility], [address] [place] [phone] Albumin 4.0 3.5 - 5.0 g/dL JASON [facility] Comment:Testing performed by : [facility], [address] [place] [phone] Alk phos 82 40 - 130 Units/L JASON [facility] Comment:Testing performed by : [facility], [address] [place] [phone] ALT 25 7 - 45 Units/L JASON [facility] Comment:Testing performed by : [facility], [address] [place] [phone] AST 38 10 - 45 Units/L JASON [facility] Comment:Testing performed by : [facility], [address] [place] [phone] Blood 11/13/2021 1:05 PM CDT 11/13/2021 1:09 PM CDT Eren Cr MD LAB BLOOD ORDERABLES Final Re sult [facility] Department [place] [address] * (ABNORMAL) CBC with auto differential (11/13/2021 1:05 PM CDT) WBC 4.2 3.8 - 9.8 K/cumm JASON [facility] Comment:Testing performed by : [facility], [address] [place] [phone] Hgb 11.1(L) 12.1 - 15.1 g/dL JASON [facility] Comment:Testing performed by : [facility], [address] [place] [phone] Hct 32.0(L) 36.1 - 44.3 % JASON BLACK Comment:Testing performed by : [facility], [address] [place] [phone] Plt 110(L) 140 - 440 K/cumm JASON [facility] Comment:Testing performed by : [facility], [address] [place] [phone] MPV 9.1 6.8 - 10.4 fL JASON BLACK Comment:Testing performed by : [facility], [address] [place] [phone] RBC 3.15(L) 3.90 - 5.00 M/cumm JASON BLACK Comment:Testing performed by : [facility], [address] [place] [phone] MCV 101.6(H) 80.0 - 97.6 fL JASON BLACK Comment:Testing performed by : [facility], [address] [place] [phone] MCH 35.1(H) 26.7 - 33.7 pg JASON [facility] Comment:Testing performed by : [facility], [address] [place] [phone] MCHC 34.6 32.7 - 35.5 g/dL JASON [facility] Comment:Testing performed by : [facility], [address] [place] [phone] RDW CV 21.1(H) 11.8 - 14.6 % JASON [facility] Comment:Testing performed by : [facility], [address] [place] [phone] NRBC abs NA 0.00 - 0.01 K/cumm JASON [facility] Comment:Testing performed by : [facility], [address] [place] [phone] Blood 11/13/2021 1:05 PM CDT 11/13/2021 1:09 PM CDT Eren Cr MD LAB BLOOD ORDERABLES Final Re sult JASON BLACK [facility] Department [place] [address] * (ABNORMAL) Vitamin D 25 hydroxy (11/13/2021 1:05 PM CDT) Vitamin D 25-OH 22(L) 30 - 80 ng/mL JASON BLACK Blood 11/13/2021 1:05 PM CDT 11/13/2021 1:57 PM CDT Eren Cr MD LAB BLOOD ORDERABLES Final Re sult Performing Organization Address [facility] Co de Phone Number [facility] Department [place] [address] * Phosphorus (11/13/2021 1:05 PM CDT) Phosphorus, pl 2.5 2.3 - 4.5 mg/dL JASON [facility] Comment:Testing performed by : [facility], [address] [place] [phone] Blood 11/13/2021 1:05 PM CDT 11/13/2021 1:09 PM CDT Eren Cr MD LAB BLOOD ORDERABLES Final Re sult Performing Organization Address [facility] de Phone Number [facility] [place] [address] * (ABNORMAL) Lipid panel (11/13/2021 1:05 PM CDT) Pathologist [facility] Cholesterol 177 30 - 199 mg/dL JASON [facility] Comment: Interpretive Data Ages < or = [...] revised on 2018. HDL 55 >=40 mg/dL [facility] Comment: Interpretive Data Ages < or = [...] 2018. LDL, calculated 87 <=129 mg/dL JASON [facility] Comment: Interpretive Data Ages < or = [...] on 2018. Non-HDL Cholesterol 122 mg/dL JASON [facility] Comment: Interpretive Data Ages < or = [...] revised on 2018. Chol/HDL ratio 3 JASON [facility] Blood 11/13/2021 1:05 PM CDT 11/13/2021 1:57 PM CDT us Eren Cr MD LAB BLOOD ORDERABLES Final Re sult [facility] Department [place] [address] * (ABNORMAL) Magnesium (11/13/2021 1:05 PM CDT) Magnesium 1.1(L) 1.4 - 2.5 mg/dL JASON [facility] Comment:Testing performed by : [facility], [address] [place] [phone] Blood 11/13/2021 1:05 PM CDT 11/13/2021 1:09 PM CDT Eren Cr MD LAB BLOOD ORDERABLES Final Re sult JASON BLACK [facility] Department [place] [address] documented in this encounter Visit Diagnoses Diagnosis [...] 11/13/2021 documented in this encounter Care Teams Automatic Stacker Relationship Specialty Start Date End Date Julio César Briseno MD PCP - General 10/01/16 Eren Cr MD Referring Physician Medical Oncology 11/25/18 Yohana Bowen MD Radiation Oncologist Radiation Oncology 11/25/18 Sabrina Willard NP [address] [place] [address] Nurse Practitioner Medical Oncology 08/17/20 11/26/21 documented as of this encounter
--- OUTSIDE RECORDS SUMMARY | 2024-06-26 02:07 | XMS_ITS | Encounter Summary ---
Author Organization [facility] Address [address] [place] [address] Phone Care Team Providers Care Tile Machine Operator Name Role Phone Julio César Briseno MD Primary Care Provider [phone] Eren Cr MD Unavailable [phone] Yohana Bowen MD Unavailable Reason for Visit * Episode Based Medications (Routine) - Closed Specialty Diagnoses / Procedures Referred By Evelyne bowman Referred To Contact Diagnoses Neuro-endocrine carcinoma (HCC) Procedures study [id number] phase III cabozantinib Eren Cr MD [address] [facility] [address] [place] [address] Phone: tel: fax: [facility] at [facility] [address] [facility] 7th [place] [address] Phone: tel: Referral ID Status Reason Start Date Expiration Date Visits Re quested Visits Authorized [id number] Closed 06/21/2021 06/26/2024 1 99 Encounter Details Date Type Department Care Team (Latest Contact Info) Description 11/27/2021 2:45 PM CDT Research Med Pick-Up/CTRU Meter Tester Polyphase [facility] Oncology [address] [place] [address] 7th [place] [address] Neuro-endocrine carcinoma (CMS/HCC) (HCC) (Primary Dx) Social [...] file Legal Sex Female 2:41 PM RESEARCH AIDE Gender Identity Not on file Sexual [...] Count Last Ordered Date First Ordered Date [facility] cabozantinib/pl acebo (2018-02-/O114813) tablet 40 mg 1 11/27/2021 Appointment Requests Count Last Ordered Date Fi rst Ordered Date ONCBCN TAKE HOME STUDY DRUG APPT 1 11/28/19 22 documented in this encounter Care Teams Tile Machine Operator Relationship Specialty Start Date End Date Julio César Briseno MD PCP - General 10/01/16 Eren Cr MD Referring Physician Medical Oncology 11/25/18 Yohana Bowen MD Radiation Oncologist Radiation Oncology 11/25/18 documented as of this encounter
--- OUTSIDE RECORDS SUMMARY | 2024-06-26 02:07 | XMS_ITS | Encounter Summary ---
Author Organization [facility] Address [address] [place] [address] Phone Care Team Providers Care Lead Cook Name Role Phone Julio César Briseno MD Primary Care Provider [phone] Eren Cr MD Unavailable [phone] Yohana Bowen MD Unavailable Reason for Visit * Episode Based Medications (Routine) - Closed Specialty Diagnoses / Procedures Referred By Evelyne bowman Referred To Contact Diagnoses Neuro-endocrine carcinoma (HCC) Procedures study [id number] phase III cabozantinib Eren Cr MD [address] [facility] [address] [place] [address] Phone: tel: fax: [facility] at [facility] [address] [facility] 7th [place] [address] Phone: tel: Referral ID Status Reason Start Date Expiration Date Visits Re quested Visits Authorized [id number] Closed 06/21/2021 06/26/2024 1 99 Encounter Details Date Type Department Care Team (Latest Contact Info) Description 11/27/2021 12:30 PM CDT Clinical Support [facility] Oncology [facility] 7th [place] [address] [place] [address] Neuro-endocrine carcinoma (CMS/HCC) (HCC) (Primary Dx); Hypophosphatemia [...] on file Legal Sex Female 2:41 PM PLASTIC PRINTER Gender Identity Not on file Sexual Orientation [...] 11/27/2021 documented in this encounter Care Teams Lead Cook Relationship Specialty Start Date End Date Julio César Briseno MD PCP - General 10/01/16 Eren Cr MD Referring Physician Medical Oncology 11/25/18 Yohana Bowen MD Radiation Oncologist Radiation Oncology 11/25/18 documented as of this encounter
--- OUTSIDE RECORDS SUMMARY | 2024-06-26 02:07 | XMS_ITS | Encounter Summary ---
Author Organization [facility] Address [address] [place] [address] Phone Care Team Providers Care Component Design Engineer Name Role Phone Julio César Briseno MD Primary Care Provider Eren Cr MD Unavailable [phone] Yohana Bowen MD Unavailable Sabrina Willard NP Unavailable [phone] Encounter Details Date Type Department Care Team (Late st Contact Info) Description 11/22/2021 Orders Only 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 Gender Identity Not on file Sexual Orientation Straight 02/19/2021 9: 29 AM CDT Occupation Industry Job Start Date Job End Date retired Not on file Not on file Not on file documented as of this encounter Plan of Treatment Not on file documented as of this encounter Visit Diagnoses Not on filedocumented in this encounter Care Teams Component Design Engineer Relationship Specialty Start Date End Date Julio César Briseno MD PCP - General 10/01/16 Eren Cr MD Referring Physician Medical Oncology 11/25/18 Yohana Bowen MD Radiation Oncologist Radiation Oncology 11/25/18 Sabrina Willrad NP [address] [place] [address] Nurse Practitioner Medical Oncology 08/17/20 11/26/21 documented as of this encounter
--- OUTSIDE RECORDS SUMMARY | 2024-06-26 02:07 | XMS_ITS | Encounter Summary ---
Author Organization [facility] Address [address] [place] [address] Care Team Providers Care Manager Retail Name Role Phone Julio César Briseno MD Primary Care Provider [phone] Eren Cr MD Unavailable [phone] Yohana Bowen MD Unavailable Sabrina Willard NP Unavailable [phone] Reason for Visit * Reason Comments OP Infusion 4g of Mag * Episode Based Medications (Routine) - Authorized Specialty Diagnoses / Procedures Referred By Contac t Referred To Contact Diagnoses Hypomagnesemia Eren Cr MD [address] [facility] [address] [place] [address] Phone: tel: fax: [facility] at [facility] [address] [facility] 7th [place] [address] Phone: tel: Referral ID Status Reason Start Date Expiration Date V isits Requested Visits Authorized [id number] Authorized 11/13/2021 04/01/2025 1 30 Encounter Details Date Type Department Care Team (Latest Contact Info) Description 11/13/2021 5:08 PM CDT - 11/13/2021 11:59 PM CDT Hospital Encounter [facility] [address] [place] [address] Hypomagnesemia (Primary Dx); Hypophosphatemia Discharge Disposition: Discharge [...] on file Legal Sex Female 2:41 PM PAVER LAYER Gender Identity Not on file Sexual [...] the week, on weekends and holidays, call [phone] and ask to have the Coordinator Skill Training Program Physician paged for you. Saturday through Saturday, 8 AM to 4:30 PM, call [phone] [facility] Oncology Physician at [facility] and ask for a member [...] capsuleIndications :supplement Take 1 tablet by mouth jewelry model maker before breakfast 07/04/2016 4 cholecalciferol (VITAMIN D-3) 2,000 unit capsule Take 1 capsule (2,000 Units total) by mouth daily 30 capsule 2 04/25/2019 3 cholestyramine (QUESTRAN) 4 gram packet Take 1 packet by mouth 3 (three) times a day with meals 270 packet 3 09/04/2019 2 clotrimazole-betam ethasone (LOTRISONE) cream Apply 1 Application topically daily as needed (rash) 4 coenzyme X67-pmzufoc E 100-5 mg-unit capsuleIndications :supplement Take 1 tablet by mouth jewelry model maker before breakfast 4 diphenoxylate-atro pine (LOMOTIL) 2.5-0.025 [...] as needed for rhinitis or allergies 4 [facility] cabozantinib/place mariela (2018-02-122/A0216 02) 20 mg tabletIndications: cancer study Take 1 tablet (20 mg total) by mouth nightly Take on an empty stomach (no food for 2 hours before and 1 hour after each dose).?? Avoid Jas's Wort, grapefruit products and [place] oranges while on treatment. placed on hold [...] 11/13/2021 5:30 PM CDT Pt arrived to [facility] for 4g of Mag, accompanied by [...] 11/13/2021 documented in this encounter Care Teams Manager Retail Relationship Specialty Start Date End Date Julio César Briseno MD PCP - General 10/01/16 Eren Cr MD Referring Physician Medical Oncology 11/25/18 Yohana Bowen MD Radiation Oncologist Radiation Oncology 11/25/18 Sabrina Willard NP [address] [place] [address] Nurse Practitioner Medical Oncology 08/17/20 11/26/21 documented as of this encounter
--- OUTSIDE RECORDS SUMMARY | 2024-06-26 02:07 | XMS_ITS | Encounter Summary ---
Author Organization [facility] Healthcare Address [address] [place] [address] Care Team Providers Care Arc And Gas Welder Name Role Phone Julio César Briseno MD Primary Care Provider [phone] Eren Cr MD Unavailable [phone] Yohana Bowen MD Unavailable Reason for Visit * Reason Comments OP Infusion Encounter Details Date Type Department Care Team (Latest Contact Info) Description 12/11/2021 2:05 PM CDT - 12/11/2021 11:59 PM CDT Hospital Encounter [facility] ([facility]) [address] [place] [id number] Hypophosphatemia (Primary Dx); Hypertension, unspecified type [...] file 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 CRITICAL CARE Gender Identity Not on file Sexual Orientation [...] the week, on weekends and holidays, call [phone] and ask to have the Washer Engineer Physician paged for you. Saturday through Saturday, 8 AM to 4:30 PM, call [phone] [facility] Oncology Physician at [facility] and ask for a [...] capsuleIndications :supplement Take 1 tablet by mouth loader operator before breakfast 07/04/2016 4 cholecalciferol (VITAMIN D-3) 2,000 unit capsule Take 1 capsule (2,000 Units total) by mouth daily 30 capsule 2 04/25/2019 3 cholestyramine (QUESTRAN) 4 gram packet Take 1 packet by mouth 3 (three) times a day with meals 270 packet 3 09/04/2019 2 clotrimazole-betam ethasone (LOTRISONE) cream Apply 1 Application topically daily as needed (rash) 4 coenzyme [id number] 100-5 mg-unit capsuleIndications :supplement Take 1 tablet by mouth loader operator before breakfast 4 diphenoxylate-atro pine (LOMOTIL) 2.5-0.025 [...] and 1 hour after each dose).?? Avoid [place]'s Wort, grapefruit products and [place] oranges while on treatment. placed on hold 09/26/22 for covid 01/29/2022 4 levothyroxine (Synthroid) 75 mcg tabletIndications: Hypothyroidism due to medication Take 1 tablet (75 mcg total) by mouth loader operator before breakfast 30 tablet 3 11/16/2021 2 [...] 12/11/2021 2:15 PM CDT Patient presented to [facility] for IN2. PAC accessed, blood return noted. BP elevated, per patient she isoff schedule and did not take her BP med today. CEMENTER MACHINE APPLICATOR prescribed one time dose of her home medication.In assessment pt told RN that she has pain that is coming back after it had once resolved in her feet, but is scheduled to see retort setter this month. ALEKSANDAR Parada contacted via [employer]. 1 liter of fluids infused over 2 hours. Post transfusion and 2 hrs post po BP meds, pt BP was elevated 189 75. ALEKSANDAR Paarda was contacted via [employer]. ALEKSANDAR said as long as patient is [...] 12/12/19 documented in this encounter Care Teams Arc And Gas Welder Relationship Specialty Start Date End Date Julio César Briseno MD PCP - General 10/01/16 Eren Cr MD Referring Physician Medical Oncology 11/25/18 Yohana Bowen MD Radiation Oncologist Radiation Oncology 11/25/18 documented as of this encounter
--- OUTSIDE RECORDS SUMMARY | 2024-06-26 02:07 | XMS_ITS | Encounter Summary ---
Author Organization [facility] Healthcare Address [address] [place] [address] Care Team Providers Care Roller Mill Tender Name Role Phone Julio César Briseno MD Primary Care Provider [phone] Eren Cr MD Unavailable [phone] Yohana Bowen MD Unavailable Encounter Details Date Type Department Care Team (Latest Contact Info) Description 12/11/2021 7:38 AM CDT - 12/11/2021 2:04 PM CDT Hospital Encounter [facility] [address] [place] [address] Neuroendocrine carcinoma (CMS/HCC) (HCC); Malignant neoplasm metastatic [...] on file 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 Gender Identity Not on file Sexual [...] capsuleIndications :supplement Take 1 tablet by mouth marketing research analyst before breakfast 07/04/2016 4 cholecalciferol (VITAMIN D-3) 2,000 unit capsule Take 1 capsule (2,000 Units total) by mouth daily 30 capsule 2 04/25/2019 3 cholestyramine (QUESTRAN) 4 gram packet Take 1 packet by mouth 3 (three) times a day with meals 270 packet 3 09/04/2019 2 clotrimazole-betam ethasone (LOTRISONE) cream Apply 1 Application topically daily as needed (rash) 4 coenzyme [id number] 100-5 mg-unit capsuleIndications :supplement Take 1 tablet by mouth marketing research analyst before breakfast 4 diphenoxylate-atro pine (LOMOTIL) [...] and 1 hour after each dose).?? Avoid [place]'s Wort, grapefruit products and [place] oranges while on treatment. placed on hold 09/26/22 for covid 01/29/2022 4 levothyroxine (Synthroid) 75 mcg tabletIndications: Hypothyroidism due to medication Take 1 tablet (75 mcg total) by mouth marketing research analyst before breakfast 30 tablet 3 11/16/2021 [...] * (ABNORMAL) eGFR (12/11/2021 11:22 AM CDT) [facility] eGFR 65(L) 90 - 130 mL/min/1. 73 [...] last reviewed 2021. Testing performed by: [facility], [address] [place] [phone] Blood 12/11/2021 11:2 2 AM CDT 12/11/2021 11:26 AM CDT us Eren Cr MD LAB BLOOD ORDERABLES Final Re sult [facility] [place] [address] * (ABNORMAL) Differential, auto (12/11/2021 11:22 AM CDT) Pathologist [facility] Neutrophil abs 2.6 1.8 - 6.6 K/cumm [facility] Comment:Testing performed by : [facility], [address] [place] [phone] Lymphocyte abs 0.4(L) 1.2 - 3.3 K/cumm [facility] Comment:Testing performed by : [facility], [address] [place] [phone] Monocyte abs 0.3 0.2 - 1.2 K/cumm [facility] Comment:Testing performed by : [facility], [address] [place] [phone] Eosinophil abs 0.4 0.0 - 0.5 K/cumm [facility] Comment:Testing performed by : [facility], [address] [place] [phone] Basophil abs 0.0 0.0 - 0.2 K/cumm [facility] Comment:Testing performed by : [facility], [address] [place] [phone] Neutrophil pct 69.8 % [facility] Comment: Interpretive Data Percent cell count reference ranges are not reported, since discordance with absolute values may lead to misinterpretation of CBC data. Current Interpretive Data was last revised on 2017. Testing performed by: [facility], [address] [place] [phone] Lymphocyte pct 10.1 % [facility] Comment: Interpretive Data Percent cell count reference ranges are not reported, since discordance with absolute values may lead to misinterpretation of CBC data. Current Interpretive Data was last revised on 2017. Testing performed by: [facility], [address] [place] [phone] Monocyte pct 8.7 % [facility] Comment:Testing performed by : [facility], [address] [place] [phone] Eosinophil pct 10.2 % [facility] Comment:Testing performed by : [facility], [address] [place] [phone] Basophil pct 1.2 % [facility] Comment:Testing performed by : [facility], [address] [place] [phone] Blood 12/11/2021 11:2 2 AM CDT 12/11/2021 11:26 AM CDT us Eren Cr MD LAB BLOOD ORDERABLES Final Re sult [facility] [place] [address] * (ABNORMAL) Lipid panel (12/11/2021 11:22 AM CDT) Cholesterol 165 30 - 199 mg/dL [facility] Comment: Interpretive [...] on 2018. Triglycerides 203(H) <=149 mg/dL [facility] Comment: Interpretive [...] on 2018. HDL 52 >=40 mg/dL [facility] Comment: [...] 2018. LDL, calculated 72 <=129 mg/dL [facility] Comment: [...] on 2018. Non-HDL Cholesterol 113 mg/dL [facility] Comment: Interpretive [...] Chol/HDL ratio 3 [facility] Blood 12/11/2021 11:2 2 AM CDT 12/11/2021 11:48 AM CDT us Eren Cr MD LAB BLOOD ORDERABLES Final Re sult Performing Organization Address City/[facility]/ZIP Co de Phone Number [facility] [place] [address] * (ABNORMAL) Phosphorus (12/11/2021 11:22 AM CDT) Phosphorus, pl 1.8(L) 2.3 - 4.5 mg/dL [facility] Comment:Testing performed by : [facility], [address] [place] [phone] Blood 12/11/2021 11:2 2 AM CDT 12/11/2021 11:26 AM CDT us Eren Cr MD LAB BLOOD ORDERABLES Final Re sult [facility] [place] [address] * (ABNORMAL) Vitamin D 25 hydroxy (12/11/2021 11:22 AM CDT) Vitamin D 25-OH 20(L) 30 - 80 ng/mL [facility] Blood 12/11/2021 11:2 2 AM CDT 12/11/2021 11:48 AM CDT us Eren Cr MD LAB BLOOD ORDERABLES Final Re sult [facility] [place] [address] * (ABNORMAL) CBC with auto differential (12/11/2021 11:22 AM CDT) WBC 3.7(L) 3.8 - 9.8 K/cumm [facility] Comment:Testing performed by : [facility], [address] [place] [phone] Hgb 11.6(L) 12.1 - 15.1 g/dL [facility] Comment:Testing performed by : [address] [phone] Hct 32.8(L) 36.1 - 44.3 % [facility] Comment:Testing performed by : [facility], [address] [place] [phone] Plt 110(L) 140 - 440 K/cumm [facility] Comment:Testing performed by : [address] [phone] MPV 8.8 6.8 - 10.4 fL [facility] Comment:Testing performed by : [address] [phone] RBC 3.13(L) 3.90 - 5.00 M/cumm [facility] Comment:Testing performed by : [address] [phone] MCV 104.5(H) 80.0 - 97.6 fL [facility] Comment:Testing performed by : [address] [phone] MCH 37.0(H) 26.7 - 33.7 pg [facility] Comment:Testing performed by : [address] [phone] MCHC 35.4 32.7 - 35.5 g/dL [facility] Comment:Testing performed by : [facility], [address] [place] [phone] RDW CV 14.3 11.8 - 14.6 % [facility] Comment:Testing performed by : [facility], [address] [place] [phone] NRBC abs 0.00 0.00 - 0.01 K/cumm [facility] Comment:Testing performed by : [facility], [address] [place] [phone] Blood 12/11/2021 11:2 2 AM CDT 12/11/2021 11:26 AM CDT us Eren Cr MD LAB BLOOD ORDERABLES Final Re sult [facility] [place] [address] * (ABNORMAL) Comprehensive metabolic panel (12/11/2021 11:22 AM CDT) Sodium 138 135 - 145 mmol/L [facility] Comment:Testing performed by : [facility], [address] [place] [phone] Potassium, pl 3.7 3.3 - 4.9 mmol/L [facility] Comment:Testing performed by : [facility], [address] [place] [phone] Chloride 107 97 - 110 mmol/L [facility] Comment:Testing performed by : [facility], [address] [place] [phone] CO2 27 22 - 32 mmol/L [facility] Comment:Testing performed by : [facility], [address] [place] [phone] Anion gap 4 2 - 15 mmol/L [facility] Comment:Testing performed by : [facility], [address] [place] [phone] BUN 15 8 - 25 mg/dL [facility] Comment:Testing performed by : [facility], [address] [place] [phone] Creatinine 0.93 0.60 - 1.10 mg/dL [facility] Comment:Testing performed by : [facility], [address] [place] [phone] Glucose 117 70 - 199 mg/dL [facility]ER [...] was last revised 2017. Testing performed by: [place] [phone] Calcium 10.0 8.5 - 10.3 mg/dL [facility] Comment:Testing performed by : [facility], [address] [place] [phone] Bilirubin, total 0.6 0.1 - 1.2 mg/dL [facility] Comment:Testing performed by : [address] [phone] Protein, pl 6.1(L) 6.5 - 8.5 g/dL [facility] Comment:Testing performed by : [address] [phone] Albumin 4.0 3.5 - 5.0 g/dL [facility] Comment:Testing performed by : [facility], [address] [place] [phone] Alk phos 77 40 - 130 Units/L [facility] Comment:Testing performed by : [place] [phone] ALT 22 7 - 45 Units/L [facility] Comment:Testing performed by : [place] [phone] AST 32 10 - 45 Units/L [facility] Comment:Testing performed by : [facility], [address] [place] [phone] Blood 12/11/2021 11:2 2 AM CDT 12/11/2021 11:26 AM CDT Eren Cr MD LAB BLOOD ORDERABLES Final Re sult [facility] [place] [address] * (ABNORMAL) Chromogranin A (12/11/2021 11:22 AM CDT) Chromogranin A 773(H) <93 ng/mL [facility] Comment: Impaired renal or hepatic function or treatment with proton pump inhibitors may result in artifactual elevations of Chromogranin A. ADDITIONAL INFORMATION This test was developed and its performance characteristics determined by [facility] in a manner consistent with CLIA requirements. [...] homogeneous time-resolved immunofluorescent assay manufactured by [employer] and performed on the [employer] Kryptor Compact Plus. ? Values obtained with different assay methods or kits may be different and cannot be used interchangeably. ? Test results cannot be interpreted as absolute evidence for the presence or absence of malignant disease. Test Performed by: [address] [address] Demand Inspector: Immanuel Novak M.D. 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
--- OUTSIDE RECORDS SUMMARY | 2024-06-26 02:07 | XMS_ITS | Encounter Summary ---
Author Organization [facility] Address [address] [place] [address] Phone Care Team Providers Care Textile Colorist Dyer Name Role Phone Julio César Briseno MD Primary Care Provider Eren Cr MD Unavailable [phone] Yohana Bowen MD Unavailable Sabrina Willard NP Unavailable [phone] Encounter Details Date Type Department Care Team (Late st Contact Info) Description 10/16/2021 Orders Only 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 Gender Identity Not on file Sexual Orientation Straight 02/19/2021 9: 29 AM CDT Occupation Industry Job Start Date Job End Date retired Not on file Not on file Not on file documented as of this encounter Plan of Treatment Not on file documented as of this encounter Visit Diagnoses Not on filedocumented in this encounter Care Teams Textile Colorist Dyer Relationship Specialty Start Date End Date Julio César Briseno MD PCP - General 10/01/16 Eren Cr MD Referring Physician Medical Oncology 11/25/18 Yohana Bowen MD Radiation Oncologist Radiation Oncology 11/25/18 Sabrina Willard NP [address] [place] [address] Nurse Practitioner Medical Oncology 08/17/20 11/26/21 documented as of this encounter
--- OUTSIDE RECORDS SUMMARY | 2024-06-26 02:07 | XMS_ITS | Encounter Summary ---
Author Organization [facility] Address [address] [place] [address] Phone Care Team Providers Care Hr Generalist Name Role Phone Julio César Briseno MD Primary Care Provider Eren Cr MD Unavailable Yohana Bowen MD Unavailable Sabrina Willard NP Unavailable Encounter Details Date Type Department Care Team (Late st Contact Info) Description 10/12/2021 Orders Only [facility] Oncology [address] [facility] 7th [place] [address] [place] [phone] Eren Cr MD [address] [facility] [address] [place] [address] Social History Tobacco Use Types Packs/Day Years [...] file 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 Gender Identity Not on file Sexual Orientation Straight 02/19/2021 9: 29 AM CDT Occupation Industry Job Start Date Job End Date retired Not on file Not on file Not on file documented as of this encounter Plan of Treatment Not on file documented as of this encounter Visit Diagnoses Not on filedocumented in this encounter Care Teams Hr Generalist Relationship Specialty Start Date End Date Julio César Briseno MD PCP - General 10/01/16 Eren Cr MD Referring Physician Medical Oncology 11/25/18 Yohana Bowen MD Radiation Oncologist Radiation Oncology 11/25/18 Sabrina Willard NP [address] [place] [address] Nurse Practitioner Medical Oncology 08/17/20 11/26/21 documented as of this encounter
--- OUTSIDE RECORDS SUMMARY | 2024-06-26 02:07 | XMS_ITS | Encounter Summary ---
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) Procedures [place] OCTREOTIDE INJECTION, DEPOT Octreotide 28 Day Cycles - Carcinoid Eren Cr MD [address] [facility] [address] [place] [address] Phone: tel: fax: [facility] [address] [address] Phone: tel: fax: Referral ID Status Reason Start Date Expiration Date V isits Requested Visits Authorized [id number] Authorized 11/28/2017 02/05/2025 1 150 Encounter Details Date Type Department Care Team (Late st Contact Info) Description 10/16/2021 9:45 AM CDT Lab [facility] Oncology [address] [facility] 7th [place] [address] [place] [id number] Neuroendocrine carcinoma (CMS/HCC) (HCC) (Primary Dx); Malignant [...] on file 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 73 m2 [facility] Comment: Interpretive Data Reference Interval [...] was last reviewed 2021. Testing performed by: [facility], [address] [place] [phone] Blood 10/16/2021 9:59 AM CDT 10/16/2021 10:03 AM CDT Eren Cr MD LAB BLOOD ORDERABLES Final Re sult [facility] Department [place] [address] * (ABNORMAL) Differential, auto (10/16/2021 9:59 AM CDT) Neutrophil abs 1.8 1.8 - 6.6 K/cumm [facility] Comment:Testing performed by : [facility], [address] [place] [phone] Lymphocyte abs 0.4(L) 1.2 - 3.3 K/cumm [facility] Comment:Testing performed by : [facility], [address] [place] [phone] Monocyte abs 0.2 0.2 - 1.2 K/cumm [facility] Comment:Testing performed by : [facility], [address] [place] [phone] Eosinophil abs 0.4 0.0 - 0.5 K/cumm [facility] Comment:Testing performed by : [facility], [address] [place] [phone] Basophil abs 0.0 0.0 - 0.2 K/cumm [facility] Comment:Testing performed by : [address] [phone] Neutrophil pct 62.3 % [facility] Comment: Interpretive Data Percent cell count reference ranges are not reported, since discordance with absolute values may lead to misinterpretation of CBC data. Current Interpretive Data was last revised on 2017. Testing performed by: [facility], [address] [place] [phone] Lymphocyte pct 12.8 % [facility] Comment: Interpretive Data Percent cell count reference ranges are not reported, since discordance with absolute values may lead to misinterpretation of CBC data. Current Interpretive Data was last revised on 2017. Testing performed by: [facility], [address] [place] [phone] Monocyte pct 8.5 % [facility] Comment:Testing performed by : [facility], [address] [place] [phone] Eosinophil pct 15.6 % [facility] Comment:Testing performed by : [facility], [address] [place] [phone] Basophil pct 0.8 % [facility] Comment:Testing performed by : [facility], [address] [place] [phone] Blood 10/16/2021 9:59 AM CDT 10/16/2021 10:03 AM CDT Eren Cr MD LAB BLOOD ORDERABLES Final Re sult [facility] [place] [address] * (ABNORMAL) Magnesium (10/16/2021 9:59 AM CDT) Magnesium 1.0(L) 1.4 - 2.5 mg/dL [facility] Comment:Testing performed by : [facility], [address] [place] [phone] Blood 10/16/2021 9:59 AM CDT 10/16/2021 10:03 AM CDT Eren Cr MD LAB BLOOD ORDERABLES Final Re sult Performing Organization Address [facility] Co de Phone Number [facility] [place] [address] * (ABNORMAL) TSH (10/16/2021 9:59 AM CDT) Thyroid Stimulating Hormone 5.45(H) 0.30 - 4.20 mcIUnit/mL [facility] Blood 10/16/2021 9:59 AM CDT 10/16/2021 10:32 AM CDT Eren Cr MD LAB BLOOD ORDERABLES Final Re sult Performing Organization Address [facility] de Phone Number [facility] [place] [address] * (ABNORMAL) Lipid panel (10/16/2021 9:59 AM CDT) Cholesterol 180 30 - 199 mg/dL [facility] [...] revised on 2018. Triglycerides 248(H) <=149 mg/dL [facility] Comment: Interpretive Data [...] revised on 2018. HDL 46 >=40 mg/dL [facility] Comment: Interpretive Data Ages [...] on 2018. LDL, calculated 84 <=129 mg/dL [facility] Comment: Interpretive [...] revised on 2018. Non-HDL Cholesterol 134 mg/dL [facility] Comment: Interpretive Data [...] last revised on 2018. Chol/HDL ratio 4 [facility] Blood 10/16/2021 9:59 AM CDT 10/16/2021 10:32 AM CDT us Eren Cr MD LAB BLOOD ORDERABLES Final Re sult Performing Organization Address [facility] Co de Phone Number [facility] [place] [address] * Phosphorus (10/16/2021 9:59 AM CDT) Phosphorus, pl 2.3 2.3 - 4.5 mg/dL [facility] Comment:Testing performed by : [facility], [address] [place] [phone] Blood 10/16/2021 9:59 AM CDT 10/16/2021 10:03 AM CDT Eren Cr MD LAB BLOOD ORDERABLES Final Re sult [facility] [place] [address] * (ABNORMAL) Vitamin D 25 hydroxy (10/16/2021 9:59 AM CDT) Pathologist [facility] Vitamin D 25-OH 24(L) 30 - 80 ng/mL [facility] Blood 10/16/2021 9:59 AM CDT 10/16/2021 10:32 AM CDT us Eren Cr MD LAB BLOOD ORDERABLES Final Re sult [facility] [place] [address] * (ABNORMAL) CBC with auto differential (10/16/2021 9:59 AM CDT) [facility] WBC 2.9(L) 3.8 - 9.8 K/cumm [facility] Comment:Testing performed by : [facility], [address] [place] [phone] Hgb 10.1(L) 12.1 - 15.1 g/dL [facility] Comment:Testing performed by : [facility], [address] [place] [phone] Hct 28.8(L) 36.1 - 44.3 % [facility] Comment:Testing performed by : [facility], [address] [place] [phone] Plt 78(L) 140 - 440 K/cumm [facility] Comment:Testing performed by : [facility], [address] [place] [phone] MPV 8.4 6.8 - 10.4 fL [facility] Comment:Testing performed by : [facility], [address] [place] [phone] RBC 3.03(L) 3.90 - 5.00 M/cumm [facility] Comment:Testing performed by : [facility], [address] [place] [phone] MCV 95.2 80.0 - 97.6 fL [facility] Comment:Testing performed by : [facility], [address] [place] [phone] MCH 33.3 26.7 - 33.7 pg [facility] Comment:Testing performed by : [facility], [address] [place] [phone] MCHC 35.0 32.7 - 35.5 g/dL [facility] Comment:Testing performed by : [facility], [address] [place] [phone] RDW CV 22.9(H) 11.8 - 14.6 % [facility] Comment:Testing performed by : [facility], [address] [place] [phone] NRBC abs 0.00 0.00 - 0.01 K/cumm [facility] Comment:Testing performed by : [facility], [address] [place] [phone] Blood 10/16/2021 9:59 AM CDT 10/16/2021 10:03 AM CDT us Eren Cr MD LAB BLOOD ORDERABLES Final Re sult [facility] Department of Laboratories [place], [place] [id number] * (ABNORMAL) Comprehensive metabolic panel (10/16/2021 9:59 AM CDT) Sodium 142 135 - 145 mmol/L [facility] Comment:Testing performed by : [facility], [address] [place] [phone] Potassium, pl 3.6 3.3 - 4.9 mmol/L [facility] Comment:Testing performed by : [facility], [address] [place] [phone] Chloride 110 97 - 110 mmol/L [facility] Comment:Testing performed by : [facility], [address] [place] [phone] CO2 24 22 - 32 mmol/L [facility] Comment:Testing performed by : [facility], [address] [place] [phone] Anion gap 8 2 - 15 mmol/L [facility] Comment:Testing performed by : [facility], [address] [place] [phone] BUN 16 8 - 25 mg/dL [facility] Comment:Testing performed by : [facility], [address] [place] [phone] Creatinine 1.07 0.60 - 1.10 mg/dL [facility] Comment:Testing performed by : [facility], [address] [place] [phone] Glucose 120 70 - 199 mg/dL [facility] [...] was last revised 2017. Testing performed by: [facility], [address] [place] [phone] Calcium 10.1 8.5 - 10.3 mg/dL [facility] Comment:Testing performed by : [address] [phone] Bilirubin, total 0.8 0.1 - 1.2 mg/dL [facility] Comment:Testing performed by : [facility], [address] [place] [phone] Protein, pl 5.8(L) 6.5 - 8.5 g/dL [facility] Comment:Testing performed by : [address] [phone] Albumin 3.9 3.5 - 5.0 g/dL [facility] Comment:Testing performed by : [address] [phone] Alk phos 84 40 - 130 Units/L [facility] Comment:Testing performed by : [facility], [address] [facility] [phone] ALT 25 7 - 45 Units/L [facility] Comment:Testing performed by : [facility], [address] [facility] [phone] AST 35 10 - 45 Units/L [facility] Comment:Testing performed by : [facility], [address] [place] [phone] Blood 10/16/2021 9:59 AM CDT 10/16/2021 10:03 AM CDT us Eren Cr MD LAB BLOOD ORDERABLES Final Re sult [facility] [place] [address] * (ABNORMAL) Chromogranin A (10/16/2021 9:59 AM CDT) Chromogranin A 812(H) <93 ng/mL [facility] Comment: Impaired renal or hepatic function or treatment with proton pump inhibitors may result in artifactual elevations of Chromogranin A. ADDITIONAL INFORMATION This test was developed and its performance characteristics determined by [facility] in a manner consistent with CLIA [...] a homogeneous time-resolved immunofluorescent assay manufactured by [employer] and performed on the [employer] Compact Plus. ? Values obtained with different assay methods or kits may be different and cannot be used interchangeably. ? Test results cannot be interpreted as absolute evidence for the presence or absence of malignant disease. Test Performed by: [facility] - [facility] [address] [facility], [place] [address] Control Room Agent: Immanuel Novak M.D. Ph.D.; CLIA# [id number] Blood 10/16/2021 9:59 AM CDT 10/16/2021 11:37 AM CDT Eren Cr MD LAB BLOOD ORDERABLES Final Re sult [facility] [place] [address] documented in this encounter Visit Diagnoses Diagnosis [...] 10/16/2021 documented in this encounter Care Teams Seasonal Driver Relationship Specialty Start Date End Date Julio César Briseno MD PCP - General 10/01/16 Eren Cr MD Referring Physician Medical Oncology 11/25/18 Yohana Bowen MD Radiation Oncologist Radiation Oncology 11/25/18 Sabrina Willard NP [address] [place] [address] Nurse Practitioner Medical Oncology 08/17/20 11/26/21 documented as of this encounter
--- OUTSIDE RECORDS SUMMARY | 2024-06-26 02:07 | XMS_ITS | Encounter Summary ---
Author Organization [facility] Address [address] [place] [address] Phone Care Team Providers Care Truck Car And Bus Cleaner Name Role Phone Julio César Briseno MD Primary Care Provider Eren Cr MD Unavailable [phone] Yohana Bowen MD Unavailable Encounter Details Date Type Department Care Team (Late st Contact Info) Description 12/11/2021 Orders Only [facility] Oncology [address] [facility] 7th [place] [address] [place] [address] Eren Cr MD [address] [facility] [address] [place] [address] Social History Tobacco Use Types Packs/Day Years [...] file 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 Gender Identity Not on file Sexual Orientation Straight 02/19/2021 9: 29 AM CDT Occupation Industry Job Start Date Job End Date retired Not on file Not on file Not on file documented as of this encounter Plan of Treatment Not on file documented as of this encounter Visit Diagnoses Not on filedocumented in this encounter Care Teams Truck Car And Bus Cleaner Relationship Specialty Start Date End Date Julio César Briseno MD PCP - General 10/01/16 Eren Cr MD Referring Physician Medical Oncology 11/25/18 Yohana Bowen MD Radiation Oncologist Radiation Oncology 11/25/18 documented as of this encounter
--- OUTSIDE RECORDS SUMMARY | 2024-06-26 02:07 | XMS_ITS | Encounter Summary ---
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) Procedures [place] OCTREOTIDE INJECTION, DEPOT Octreotide 28 Day Cycles - Carcinoid Eren Cr MD [address] [facility] [address] [place] [address] Phone: tel: fax: [facility] Cancer [address] [address] Phone: tel: fax: Referral ID Status Reason Start Date Expiration Date V isits Requested Visits Authorized [id number] Authorized 11/28/2017 02/05/2025 1 150 Encounter Details Date Type Department Care Team (Late st Contact Info) Description 11/13/2021 3:00 PM CDT Infusion [facility] Oncology [address] [facility] 7th [place] [address] Neuroendocrine carcinoma (CMS/HCC) (HCC) (Primary Dx); Malignant [...] file 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 Discharge Mode: Ambulatory Accompanied by: Self Discharged To: Home * Bessy Hall RN - 11/13/2021 3:00 PM CDT Oncology Nursing Note [facility] La Chung is a 71 [...] First Orde red Date ONCBCN NURSING COMMUNICATION [id number] 1 11/13 ONCBCN NURSING COMMUNICATION [id number] 1 0 11/13/2021 PHYSICIAN COMMUNICATION ORDER 1 11/13/2021 Appointment Requests Count Last Ordered Date Fi rst Ordered Date ONCBCN INJECTION APPOINTMENT REQUEST 1 03/2022 documented in this encounter Care Teams Electrophysiologist Relationship Specialty Start Date End Date Julio César Briseno MD PCP - General 10/01/16 Eren Cr MD Referring Physician Medical Oncology 11/25/18 Yohana Bowen MD Radiation Oncologist Radiation Oncology 11/25/18 Sabrina Willard NP [address] [place] [address] Nurse Practitioner Medical Oncology 08/17/20 11/26/21 documented as of this encounter
--- OUTSIDE RECORDS SUMMARY | 2024-06-26 02:07 | XMS_ITS | Encounter Summary ---
Author Organization [facility] Address [address] [place] [address] Phone Care Team Providers Care Tanbark Peeler Name Role Phone Julio César Briseno MD Primary Care Provider [phone] Eren Cr MD Unavailable [phone] Yohana Bowen MD Unavailable Sabrina Willard NP Unavailable [phone] Encounter Details Date Type Department Care Team (Latest Contact Info) Description 10/16/2021 Research Med Pick-Up/CTRU Bicycle Mechanic 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
--- OUTSIDE RECORDS SUMMARY | 2024-06-26 02:07 | XMS_ITS | Encounter Summary ---
Author Organization [facility] Address [address] [place] [address] Phone Care Team Providers Care Mold Cleaner Name Role Phone Julio César Briseno MD Primary Care Provider Eren Cr MD Unavailable Yohana Bowen MD Unavailable Sabrina Willard NP Unavailable Encounter Details Date Type Department Care Team (Late st Contact Info) Description 11/16/2021 Orders Only 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 Gender Identity Not on file [...] 1 tablet (75 mcg total) by mouth senior research analyst before breakfast 30 tablet 3 11/16/2021 documented in this encounter Plan of Treatment Not on file documented as of this encounter Visit Diagnoses Diagnosis Hypothyroidism due to medication- Primary documented in this encounter Care Teams Mold Cleaner Relationship Specialty Start Date End Date Julio César Briseno MD PCP - General 10/01/16 Eren Cr MD Referring Physician Medical Oncology 11/25/18 Yohana Bowen MD Radiation Oncologist Radiation Oncology 11/25/18 Sabrina Willard NP [address] [place] [address] Nurse Practitioner Medical Oncology 08/17/20 11/26/21 documented as of this encounter
--- OUTSIDE RECORDS SUMMARY | 2024-06-26 02:07 | XMS_ITS | Encounter Summary ---
Author Organization [facility] Address [address] [place] [address] Phone Care Team Providers Care Pharmacology Associate Name Role Phone Julio César Briseno MD Primary Care Provider [phone] Eren Cr MD Unavailable [phone] Yohana Bowen MD Unavailable Reason for Visit * Episode Based Medications (Routine) - Closed Specialty Diagnoses / Procedures Referred By Evelyne bowman Referred To Contact Diagnoses Neuro-endocrine carcinoma (HCC) Procedures study [id number] phase III cabozantinib Eren Cr MD [address] [facility] [address] [place] [address] Phone: tel: fax: [facility] at [facility] and [facility] [address] [facility] 7th [place] [address] Phone: tel: Referral ID Status Reason Start Date Expiration Date Visits Re quested Visits Authorized [id number] Closed 06/21/2021 06/26/2024 1 99 Encounter Details Date Type Department Care Team (Late st Contact Info) Description 11/27/2021 1:30 PM CDT Office Visit [facility] Oncology [address] [facility] 7th [place] [address] [place] [address] Eren Cr MD [address] [facility] [address] [place] [address] Bone metastasis (CMS/HCC) (HCC) (Primary Dx); Malignant [...] on file Legal Sex Female 2:41 PM 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 Greyson Reeves. Biopsy [...] balls of feet. Mild erythema. NEURO: A&Ox4, environmental inspector grossly intact by conversation, moving all [...] and they verbalized understanding. Idania Diaz PA-C [facility] Division of Medical Oncology In collaboration with Dr. Eren Cr documented in this encounter Plan of Treatment Not on file documented as of this encounter Results * Phosphorus (12/25/2021 9:25 AM CDT) [facility] Phosphorus, pl 2.3 2.3 - 4.5 mg/dL [facility] Comment:Testing performed by : [facility], [address] [place] [phone] Blood 12/25/2021 9:25 AM CDT 12/25/2021 9:28 AM CDT Eren Cr MD LAB BLOOD ORDERABLES Final Re sult Performing Organization Address [facility] Co de Phone Number [facility] [place] [address] * Magnesium (12/25/2021 9:25 AM CDT) [facility] Magnesium 1.5 1.4 - 2.5 mg/dL [facility] Comment:Testing performed by : [facility], [address] [place] [phone] Blood 12/25/2021 9:25 AM CDT 12/25/2021 9:28 AM CDT Eren Cr MD LAB BLOOD ORDERABLES Final Re sult Performing Organization Address [facility]/ZIP Co de Phone Number [facility] [place] [address] * (ABNORMAL) Comprehensive metabolic panel (12/25/2021 9:25 AM CDT) [facility] Sodium 139 135 - 145 mmol/L [facility] Comment:Testing performed by : [facility], [address] [place] [phone] Potassium, pl 4.0 3.3 - 4.9 mmol/L [facility] Comment:Testing performed by : [facility], [address] [place] [phone] Chloride 108 97 - 110 mmol/L [facility] Comment:Testing performed by : [facility], [address] [place] [phone] CO2 25 22 - 32 mmol/L [facility] Comment:Testing performed by : [facility], [address] [place] [phone] Anion gap 6 2 - 15 mmol/L [facility] Comment:Testing performed by : [facility], [address] [place] [phone] BUN 18 8 - 25 mg/dL [facility] Comment:Testing performed by : [facility], [address] [place] [phone] Creatinine 1.27(H) 0.60 - 1.10 mg/dL [facility] Comment:Testing performed by : [facility], [address] [place] [address] Glucose 111 70 - 199 mg/dL [facility] [...] Testing performed by: [facility], [address] [place] [phone] Calcium 9.9 8.5 - 10.3 mg/dL [facility] Comment:Testing performed by : [facility], [address] [place] [phone] Bilirubin, total 0.5 0.1 - 1.2 mg/dL [facility] Comment:Testing performed by : [facility], [address] [place] [phone] Protein, pl 6.3(L) 6.5 - 8.5 g/dL [facility] Comment:Testing performed by : [facility], [address] [place] [address] Albumin 4.1 3.5 - 5.0 g/dL [facility] Comment:Testing performed by : [facility], [address] [place] [phone] Alk phos 84 40 - 130 Units/L [facility] Comment:Testing performed by : [facility], [address] [place] [phone] ALT 22 7 - 45 Units/L [facility] Comment:Testing performed by : [facility], [address] [place], [place] [address] AST 32 10 - 45 Units/L [facility] Comment:Testing performed by : [facility], [address] [place] [phone] Blood 12/25/2021 9:25 AM CDT 12/25/2021 9:28 AM CDT Eren Cr MD LAB BLOOD ORDERABLES Final Re sult [facility] [place] [address] * (ABNORMAL) CBC with auto differential (12/25/2021 9:25 AM CDT) WBC 3.4(L) 3.8 - 9.8 K/cumm [facility] Comment:Testing performed by : [facility], [address] [place] [phone] Hgb 12.0(L) 12.1 - 15.1 g/dL [facility] Comment:Testing performed by : [facility], [address] [place] [phone] Hct 34.3(L) 36.1 - 44.3 % [facility] Comment:Testing performed by : [facility], [address] [place] [phone] Plt 99(L) 140 - 440 K/cumm [facility] Comment:Testing performed by : [facility], [address] [place] [phone] MPV 9.1 6.8 - 10.4 fL [facility] Comment:Testing performed by : [facility], [address] [place] [phone] RBC 3.31(L) 3.90 - 5.00 M/cumm [facility] Comment:Testing performed by : [facility], [address] [place] [phone] MCV 103.5(H) 80.0 - 97.6 fL [facility] Comment:Testing performed by : [facility], [address] [place] [phone] MCH 36.2(H) 26.7 - 33.7 pg [facility] Comment:Testing performed by : [facility], [address] [place] [address] MCHC 35.0 32.7 - 35.5 g/dL [facility] Comment:Testing performed by : [facility], [address] [place] [phone] RDW CV 13.3 11.8 - 14.6 % [facility] Comment:Testing performed by : [facility], [address] [place] [phone] NRBC abs 0.00 0.00 - 0.01 K/cumm [facility] Comment:Testing performed by : [facility], [address] [place] [phone] Blood 12/25/2021 9:25 AM CDT 12/25/2021 9:28 AM CDT Eren Cr MD LAB BLOOD ORDERABLES Final Re sult [facility] Department [place] [address] documented in this encounter Visit Diagnoses Diagnosis [...] 22 documented in this encounter Care Teams Pharmacology Associate Relationship Specialty Start Date End Date Julio César Briseno MD PCP - General 10/01/16 Eren Cr MD Referring Physician Medical Oncology 11/25/18 Yohana Bowen MD Radiation Oncologist Radiation Oncology 11/25/18 documented as of this encounter
--- OUTSIDE RECORDS SUMMARY | 2024-06-26 02:07 | XMS_ITS | Encounter Summary ---
Author Organization [facility] Healthcare Address [address] [place] [address] Care Team Providers Care Program Director Group Work Name Role Phone Julio César Briseno MD Primary Care Provider [phone] Eren Cr MD Unavailable [phone] Yohana Bowen MD Unavailable Sabrina Willard NP Unavailable [phone] Reason for Referral * MRI/CAT/PET Scan (Routine) - Closed Specialty Diagnoses / Procedures Referred By Evelyne bowman Referred To Contact Radiology Diagnoses 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) Bone metastasis Procedures CT chest abdomen pelvis with contrast Eren Cr MD [address] [place] [address] Phone: tel: fax: [address] [address] Referral ID Status Reason Start Date Expiration Date Visits Re quested Visits Authorized [id number] Closed 09/18/2021 10/18/2022 1 1 Reason for Visit * MRI/CAT/PET Scan (Routine) - Closed Specialty Diagnoses / Procedures Referred By Evelyne Referred To Contact Radiology Diagnoses 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) Bone metastasis Procedures CT chest abdomen pelvis with contrast Eren Cr MD [address] [facility] [address] [place] [address] Phone: tel: fax: [address] [place] [address] Referral ID Status Reason Start Date Expiration Date Visits Re quested Visits Authorized [id number] Closed 09/18/2021 10/18/2022 1 1 Encounter Details Date Type Department Care Team (Latest Contact Info) Description 10/13/2021 9:20 AM CDT - 10/13/2021 11:59 PM CDT Hospital Encounter [facility] [address] [place] [address] Eren Cr MD [address] [facility] [address] [place] [address] Neuro-endocrine carcinoma (CMS/HCC) (HCC); Malignant neoplasm metastatic [...] on file 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 Gender Identity Not on file Sexual [...] with simethicone-diphen hydramine-lidocain e (MAGIC MOUTHWASH) suspension [id number]:N euro-endocrine carcinoma (HCC),Oral mucositis Swish and swallow 10 mL every 4 (four) hours as needed (oral mucositis) 240 mL 2 09/19/2021 2 albuterol HFA (PROVENTIL HFA,VENTOLIN HFA,PROAIR HFA) 90 mcg/actuation inhaler INHALE 1 PUFF BY MOUTH EVERY 4 HOURS 03/24/2021 2 ascorbic acid, vitamin C, 500 mg capsuleIndications :supplement Take 1 tablet by mouth precision instrument maker and repairer before breakfast 07/04/2016 4 cholecalciferol (VITAMIN D-3) 2,000 unit capsule Take 1 capsule (2,000 Units total) by mouth daily 30 capsule 2 04/25/2019 3 cholestyramine (QUESTRAN) 4 gram packet Take 1 packet by mouth 3 (three) times a day with meals 270 packet 3 09/04/2019 2 clotrimazole-betam ethasone (LOTRISONE) cream Apply 1 Application topically daily as needed (rash) 4 coenzyme M95-buybcvs E 100-5 mg-unit capsuleIndications :supplement Take 1 tablet by mouth precision instrument maker and repairer before breakfast 4 denosumab (XGEVA) 120 mg/1.7 [...] dose).?? Avoid Jas's Wort, grapefruit products and [place] oranges while on treatment. placed on hold [...] Creatinine POC 0.9 0.6 - 1.1 mg/dL [facility] Blood 10/13/2021 9:54 AM CDT 10/13/2021 9:54 AM CDT Eren Cr MD LAB POCT ORDERABLES - DEVICE Final Result [facility] [place] [address] documented in this encounter Visit Diagnoses Diagnosis [...] mL documented in this encounter Care Teams Program Director Group Work Relationship Specialty Start Date End Date Julio César Briseno MD PCP - General 10/01/16 Eren Cr MD Referring Physician Medical Oncology 11/25/18 Yohana Bowen MD Radiation Oncologist Radiation Oncology 11/25/18 Sabrina Willard NP [address] [place] [address] Nurse Practitioner Medical Oncology 08/17/20 11/26/21 documented as of this encounter
--- OUTSIDE RECORDS SUMMARY | 2024-06-26 02:07 | XMS_ITS | Encounter Summary ---
Author Organization [facility] Address [address] [place] [address] Phone Care Team Providers Care Supervisor Powdered Sugar Name Role Phone Julio César Briseno MD Primary Care Provider [phone] Eren Cr MD Unavailable [phone] Yohana Bowen MD Unavailable Reason for Visit * Episode Based Medications (Routine) - Authorized Specialty Diagnoses / Procedures Referred By Evelyne t Referred To Contact Diagnoses Hypomagnesemia Eren Cr MD [address] [facility] [address] [place] [address] Phone: tel: fax: [facility] at [facility] and [facility] 7th [place] [address] Phone: tel: Referral ID Status Reason Start Date Expiration Date V isits Requested Visits Authorized [id number] Authorized 11/13/2021 04/01/2025 30 Encounter Details Date Type Department Care Team (Late st Contact Info) Description 11/27/2021 2:30 PM CDT Infusion [facility] Oncology [address] [place] [address] 7th [place] [address] Hypomagnesemia (Primary Dx); Neuroendocrine carcinoma [...] on file 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 Gender Identity Not on file Sexual Orientation Straight 02/19/2021 9: 29 AM CDT Occupation Industry Job Start Date Job End Date retired Not on file Not on file Not on file documented as of this encounter Nursing Notes * Cecilia Lucio RN - 11/27/2021 2:30 PM CDT Oncology Nursing Note [facility] La Chung is a [...] 11/27/2021 documented in this encounter Care Teams Supervisor Powdered Sugar Relationship Specialty Start Date End Date Julio César Briseno MD PCP - General 10/01/16 Eren Cr MD Referring Physician Medical Oncology 11/25/18 Yohana Bowen MD Radiation Oncologist Radiation Oncology 11/25/18 documented as of this encounter
--- OUTSIDE RECORDS SUMMARY | 2024-06-26 02:07 | XMS_ITS | Encounter Summary ---
Author Organization [facility] Address [address] [place] [address] Phone Care Team Providers Care Photogrammetric Surveyor Name Role Phone Julio César Briseno MD Primary Care Provider [phone] Eren Cr MD Unavailable [phone] Yohana Bowen MD Unavailable Reason for Visit * Reason Comments Injections sandostatin * Episode Based Medications (Routine) - Authorized Specialty Diagnoses / Procedures Referred By Contac t Referred To Contact Oncology Diagnoses Neuroendocrine carcinoma (HCC) Malignant neoplasm metastatic to liver (HCC) Procedures OR OCTREOTIDE INJECTION, DEPOT Octreotide 28 Day Cycles - Carcinoid Eren Cr MD [address] [facility] [address] [place] [address] Phone: tel: fax: [address] [address] Phone: tel: fax: Referral ID Status Reason Start Date Expiration Date V isits Requested Visits Authorized [id number] Authorized 11/28/2017 02/05/2025 1 150 Encounter Details Date Type Department Care Team (Late st Contact Info) Description 12/11/2021 10:45 AM CDT Infusion [facility] [address] [facility] 7th [place] [address] Neuroendocrine carcinoma (CMS/HCC) (HCC) (Primary Dx); Malignant [...] on file 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 [...] 12/2021 documented in this encounter Care Teams Photogrammetric Surveyor Relationship Specialty Start Date End Date Julio César Briseno MD PCP - General 10/01/16 Eren Cr MD Referring Physician Medical Oncology 11/25/18 Yohana Bowen MD Radiation Oncologist Radiation Oncology 11/25/18 documented as of this encounter
--- OUTSIDE RECORDS SUMMARY | 2024-06-26 02:07 | XMS_ITS | Encounter Summary ---
Author Organization [facility] Healthcare Address [address] [place] [address] Care Team Providers Care Gut Puller Name Role Phone Julio César Briseno MD Primary Care Provider [phone] Eren Cr MD Unavailable [phone] Yohana Bowen MD Unavailable Sabrina Willard NP Unavailable [phone] Reason for Visit * Reason Comments OP Infusion * Episode Based Medications (Routine) - Authorized Specialty Diagnoses / Procedures Referred By Contac t Referred To Contact Oncology Diagnoses 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) Procedures [place] DENOSUMAB INJECTION DENOSUMAB (XGEVA) Eren Cr MD [address] [place] [address] Phone: tel: fax: [facility] [address] [facility] 7th [place] [address] Phone: tel: Referral ID Status Reason Start Date Expiration Date V isits Requested Visits Authorized [id number] Authorized 03/02/2019 10/06/2024 1 60 Encounter Details Date Type Department Care Team (Latest Contact Info) Description 10/10/2021 10:06 AM CDT - 10/10/2021 12:54 PM CDT Hospital Encounter [facility] ([facility]) [facility] [place] [address] Eren Cr MD [address] [facility] [address] [place] [address] Neuroendocrine carcinoma (CMS/HCC) (HCC) (Primary Dx); Bone [...] file 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 Gender Identity Not on file Sexual [...] Body Mass Index 30.71 07/17/2021 2:15 PM ROLLER CHECKER documented in this encounter Discharge Diagnoses Diagnosis Other malignant neuroendocrine tumors (HCC) - OTHER MALIGNANT NEUROENDOCRINE TUMORS Secondary malignant neoplasm of bone (CMS/HCC) (HCC) - SECONDARY MALIGNANT NEOPLASM OF BONE documented in this encounter Discharge Instructions * Patient Instructions* Hola Heredia, IRV[place] - 10/10/2021 12:12 PM CDT .After 4:30 PM during the week, on weekends and holidays, call [phone] and ask to have the Medicine And Health Service Manager Physician paged for you. Saturday through Saturday, 8 AM to 4:30 PM, call [phone] [facility] Oncology Physician at [facility] and ask for a member of [...] with simethicone-diphen hydramine-lidocain e (MAGIC MOUTHWASH) suspension [id number]:N euro-endocrine carcinoma (HCC),Oral mucositis Swish and swallow 10 mL every 4 (four) hours as needed (oral mucositis) 240 mL 2 09/19/2021 2 albuterol HFA (PROVENTIL HFA,VENTOLIN HFA,PROAIR HFA) 90 mcg/actuation inhaler INHALE 1 PUFF BY MOUTH EVERY 4 HOURS 03/24/2021 2 ascorbic acid, vitamin C, 500 mg capsuleIndications :supplement Take 1 tablet by mouth editor farm journal before breakfast 07/04/2016 4 cholecalciferol (VITAMIN D-3) 2,000 unit capsule Take 1 capsule (2,000 Units total) by mouth daily 30 capsule 2 04/25/2019 3 cholestyramine (QUESTRAN) 4 gram packet Take 1 packet by mouth 3 (three) times a day with meals 270 packet 3 09/04/2019 2 clotrimazole-betam ethasone (LOTRISONE) cream Apply 1 Application topically daily as needed (rash) 4 coenzyme [id number]-egqwjsv E 100-5 mg-unit capsuleIndications :supplement Take 1 tablet by mouth editor farm journal before breakfast 4 denosumab (XGEVA) 120 mg/1.7 [...] dose).?? Avoid Jas's Wort, grapefruit products and [place] oranges while on treatment. placed on hold [...] 10/10/2021 12:49 PM CDT Patient seen in [facility] today for IVF,port accessed per policy. patient tolerated treatment well. vss. port deaccessed per policy. Slight white-jon yellow discharge leaked out while deaccessing patient port. Looked at by clinic WRITING TUTOR, Carleen Espinosa. Patient has some tenderness- could be r/t recent placement. No redness, warmth, inflammation, irritation noted. Unable to express more discharge from port site. Pt ok to discharge per WRITING TUTOR, patient instructed on s/s of infection and [...] 10/10/2021 documented in this encounter Care Teams Gut Puller Relationship Specialty Start Date End Date Julio César Briseno MD PCP - General 10/01/16 Eren Cr MD Referring Physician Medical Oncology 11/25/18 Yohana Bowen MD Radiation Oncologist Radiation Oncology 11/25/18 Sabrina Willard NP [address] [place] [address] Nurse Practitioner Medical Oncology 08/17/20 11/26/21 documented as of this encounter
--- OUTSIDE RECORDS SUMMARY | 2024-06-26 02:07 | XMS_ITS | Encounter Summary ---
Author Organization [facility] Address [address] [facility] [address] [place] [address] Phone Care Team Providers Care Earth Science Teacher Name Role Phone Julio César Briseno MD Primary Care Provider Eren Cr MD Unavailable [phone] Yohana Bowen MD Unavailable Sabrina Willard NP Unavailable [phone] Reason for Visit * Reason Comments colostomy complication Encounter Details Date Type Department Care Team (Late st Contact Info) Description 10/19/2021 3:45 PM CDT Office Visit [facility] Surgery [address] [facility] 2nd Floor [address] [place] [address] Greyson Reeves MD [address] [facility] [phone] [place] [address] Colostomy complication, unspecified (HCC) (Primary Dx) Social [...] file 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 ? [place] REMOVAL OF TONSILS,<12 Y/O Tonsillectomy - (Added by TW Conv) ??? [place] TOTAL ABDOM HYSTERECTOMY Hysterectomy - (Added by TW Conv) HOME MEDICATIONS : ascorbic acid, vitamin C, 500 mg capsule cholecalciferol (VITAMIN D-3) 2,000 unit capsule clotrimazole-betamethasone (LOTRISONE) cream coenzyme D67-mcolfxf E 100-5 mg-unit capsule denosumab (Xgeva) 120 mg/1.7 mL (70 mg/mL) injection diphenoxylate-atropine (LOMOTIL) 2.5-0.025 mg per tablet DULoxetine DR (CYMBALTA) 30 mg capsule fluticasone propionate (FLONASE) 50 mcg/actuation nasal spray [facility] cabozantinib/placebo (/[id number]) 20 mg tablet lidocaine-prilocaine (lidocaine-prilocaine) cream loperamide [...] % ointment al & mag hydroxide with xmiaeyisjwc-vgoljthtjiphozb-wouxijcsb (MAGIC MOUTHWASH) suspension 1-1-1 Allergies Allergen Reactions [...] hydroxide with simethicone-diphenhydram ine-lidocaine (MAGIC MOUTHWASH) suspension [id number]:Neuro-e ndocrine carcinoma (HCC),Oral mucositis Swish and swallow 10 mL every 4 (four) hours as needed (oral mucositis) Therapy completed 09/19/2021 10/19/2021 documented as of this encounter Care Teams Earth Science Teacher Relationship Specialty Start Date End Date Julio César Briseno MD PCP - General 10/01/16 Eren Cr MD Referring Physician Medical Oncology 11/25/18 Yohana Bowen MD Radiation Oncologist Radiation Oncology 11/25/18 Sabrina Willard NP [address] [place] [address] Nurse Practitioner Medical Oncology 08/17/20 11/26/21 documented as of this encounter
--- OUTSIDE RECORDS SUMMARY | 2024-06-26 02:07 | XMS_ITS | Encounter Summary ---
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) Procedures [place] DENOSUMAB INJECTION DENOSUMAB (XGEVA) Eren Cr MD [address] [facility] [address] [place] [address] Phone: tel: fax: [facility] [address] [facility] Advanced Medicine 7th [place] [address] Phone: tel: Referral ID Status Reason Start Date Expiration Date V isits Requested Visits Authorized [id number] Authorized 03/02/2019 10/06/2024 1 60 Encounter Details Date Type Department Care Team (Late st Contact Info) Description 09/26/2021 3:00 PM CDT Infusion [facility] Oncology [address] [facility] 7th [place] [address] Neuro-endocrine carcinoma (CMS/HCC) (HCC) (Primary Dx); Bone [...] file 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 STATE [employer]ARM[employer] Gender Identity Not on file Sexual Orientation [...] Body Mass Index 30.79 07/17/2021 2:15 PM DIRECTOR STATE PHARMAC[employer] documented in this encounter Nursing Notes * Meagan Lyles - 09/26/2021 3:00 PM CDT Oncology Nursing Note [facility] La Chung is a 70 [...] 09/26/2021 documented in this encounter Care Teams Hotel Service Manager Relationship Specialty Start Date End Date Julio César Briseno MD PCP - General 10/01/16 Eren Cr MD Referring Physician Medical Oncology 11/25/18 Yohana Bowen MD Radiation Oncologist Radiation Oncology 11/25/18 Sabrina Willard NP [address] [place] [address] Nurse Practitioner Medical Oncology 08/17/20 11/26/21 documented as of this encounter
--- OUTSIDE RECORDS SUMMARY | 2024-06-26 02:07 | XMS_ITS | Encounter Summary ---
Author Organization [facility] Address [address] [place] [address] Phone Care Team Providers Care Geophysics Teacher Name Role Phone Julio César Briseno MD Primary Care Provider Eren Cr MD Unavailable [phone] Yohana Bowen MD Unavailable Sabrina Willard NP Unavailable [phone] Encounter Details Date Type Department Care Team (Late st Contact Info) Description 10/23/2021 Orders Only [facility] Oncology [address] [facility] Advanced Medicine 7th [place] [address] [place] [id number] Elaine Coy Social History Tobacco Use Types [...] file 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 Gender Identity Not on file Sexual Orientation Straight 02/19/2021 9: 29 AM CDT Occupation Industry Job Start Date Job End Date retired Not on file Not on file Not on file documented as of this encounter Plan of Treatment Not on file documented as of this encounter Visit Diagnoses Not on filedocumented in this encounter Care Teams Geophysics Teacher Relationship Specialty Start Date End Date Julio César Briseno MD PCP - General 10/01/16 Eren Cr MD Referring Physician Medical Oncology 11/25/18 Yohana Bowen MD Radiation Oncologist Radiation Oncology 11/25/18 Sabrina Willard NP [address] [place] [address] Nurse Practitioner Medical Oncology 08/17/20 11/26/21 documented as of this encounter
--- OUTSIDE RECORDS SUMMARY | 2024-06-26 02:08 | XMS_ITS | Encounter Summary ---
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) Procedures [place] DENOSUMAB INJECTION DENOSUMAB (XGEVA) Eren Cr MD [address] [facility] [address] [place] [address] Phone: tel: fax: [facility] [address] [facility] Advanced Medicine 7th [place] [address] Phone: tel: Referral ID Status Reason Start Date Expiration Date V isits Requested Visits Authorized [id number] Authorized 03/02/2019 10/06/2024 1 60 Encounter Details Date Type Department Care Team (Late st Contact Info) Description 08/21/2021 11:30 AM COMPOSITE BOAT BUILDER Infusion [facility] Oncology [address] [facility] 7th [place] [address] Bone metastasis (CMS/HCC) (HCC) (Primary Dx); Neuro-endocrine [...] on file Legal Sex Female 2:41 PM COMPOSITE BOAT BUILDER Gender Identity Not on file Sexual Orientation Straight 02/19/2021 9: 29 AM CDT Occupation Industry Job Start Date Job End Date retired Not on file Not on file Not on file documented as of this encounter Nursing Notes * Xochitl Jimenez RN - 08/21/2021 11:30 AM CST See other encounter for today's treatment notes [employer]ITE [employer] BUILDER documented in this encounter Plan of [...] rine carcinoma (HCC) Given 08/21/2021 3:47 PM COMPOSITE BOAT BUILDER 120 mg Right Lower Abdomen sodium chloride 0.9% 1,000 mL with magnesium sulfate 2 g infusion 500 mL/hr, intravenous, Continuous, Starting on 08/21/21 at 1415Indications:Bone metastasis,Neuro-endoc rine carcinoma (HCC) New Bag 08/21/2021 2:40 PM COMPOSITE BOAT BUILDER 500 mL/hr 500 mL/hr documented in this encounter Orders Medications Ordered That Brett ht Not Have Been Administered Count Last Ordered Date First Ordered Date octreotide LAR (SandoSTATIN LAR) extended release intramuscular injection 30 mg 1 08/21/2021 Nursing Count Last Ordered Date First Orde red Date [facility] NURSING COMMUNICATION [id number] 1 08/21 [facility] NURSING COMMUNICATION [id number] 1 0 08/21/2021 documented in this encounter Care Teams Painter Structural Steel Relationship Specialty Start Date End Date Julio César Briseno MD PCP - General 10/01/16 Eren Cr MD Referring Physician Medical Oncology 11/25/18 Yohana Bowen MD Radiation Oncologist Radiation Oncology 11/25/18 Sabrina Willard NP [address] [place] [address] Nurse Practitioner Medical Oncology 08/17/20 11/26/21 documented as of this encounter
--- OUTSIDE RECORDS SUMMARY | 2024-06-26 02:08 | XMS_ITS | Encounter Summary ---
Author Organization [facility] Address [address] [place] [address] Phone Care Team Providers Care Manager Baby Name Role Phone Julio César Briseno MD Primary Care Provider [phone] Eren Wu MD Unavailable [phone] Yohana Bowen MD Unavailable Sabrina Willard NP Unavailable [phone] Reason for Visit * Episode Based Medications (Routine) - Closed Specialty Diagnoses / Procedures Referred By Contac t Referred To Contact Diagnoses Neuro-endocrine carcinoma (HCC) Procedures study [id number] phase III cabozantinib Eren Wu MD [address] [facility] [address] [place] [address] Phone: tel: fax: [facility] [address] [facility] Advanced Medicine 7th [place] [address] Phone: tel: Referral ID Status Reason Start Date Expiration Date Visits Re quested Visits Authorized [id number] Closed 06/21/2021 06/26/2024 1 99 Encounter Details Date Type Department Care Team (Late st Contact Info) Description 08/21/2021 10:00 AM MACHINE GUN MECHANIC Office Visit [facility] [address] [facility] 7th [place] [address] [place] [address] Eren Wu MD [address] [facility] [address] [place] [address] Neuro-endocrine carcinoma (CMS/HCC) (HCC) (Primary Dx); Bone [...] file Legal Sex Female 2:41 PM MACHINE GUN MECHANIC Gender Identity Not on file Sexual Orientation Straight 02/19/2021 9: 29 AM CDT Occupation Industry Job Start Date Job End Date retired Not on file Not on file Not on file documented as of this encounter Last Filed Vital Signs Vital Sign Reading Time Taken Comments Blood Pressure 134/78 08/21/2021 9:45 AM MACHINE GUN MECHANIC Pulse 79 08/21/2021 9:45 AM MACHINE GUN MECHANIC Temperature 36.3 ??C (97.3 ??F) 08/21/2021 9:45 AM CS T Respiratory Rate 18 08/21/2021 9:45 AM MACHINE GUN MECHANIC Oxygen Saturation 96% 08/21/2021 9:45 AM MACHINE GUN MECHANIC Inhaled Oxygen Concentration - - Weight 77.7 kg (171 lb 6.4 oz) 08/21/2021 9:45 A M MACHINE GUN MECHANIC Height - - Body Mass Index 31.26 07/17/2021 2:15 PM MACHINE GUN MECHANIC documented in this encounter Progress Notes * [...] No rashes over exposed skin NEURO: A&Ox4, bag filler grossly intact by conversation, moving all [...] is recurrent. Eren Wu MD Medical Oncology INE GUN MECHANIC documented in this encounter Miscellaneous Notes * Addendum Note - Eren Wu Jr., MD - 08/21/2021 10:00 AM CSTAddended by: EREN WU on: 08/21/2021 01:40 PM Modules accepted: Orders INE GUN MECHANIC documented in this encounter Plan of [...] performance characteristics determined by [facility] in a manner consistent with CLIA [...] a homogeneous time-resolved immunofluorescent assay manufactured by [employer] and performed on the zhiwo [employer] Digitalor Compact Plus. ? Values obtained with different assay methods or kits may be different and cannot be used interchangeably. ? Test results cannot be interpreted as absolute evidence for the presence or absence of malignant disease. Test Performed by: [facility] [address] [id number] Monomer Purification Operator: Immanuel Novak M.D. Ph.D.; CLIA# [id number] Blood 10/16/2021 9:59 AM CDT 10/16/2021 11:37 AM CDT us Eren Wu MD LAB BLOOD ORDERABLES Final Re sult JASON BLACK [facility] Department of Laboratories [place], [place] [id number] * (ABNORMAL) Comprehensive metabolic panel (10/16/2021 9:59 AM CDT) Sodium 142 135 - 145 mmol/L JASON LEAVITT Comment:Testing performed by : [facility], [address] [place] [phone] Potassium, pl 3.6 3.3 - 4.9 mmol/L JASON LEAVITT Comment:Testing performed by : [facility], [address] [place] [phone] Chloride 110 97 - 110 mmol/L JASON LEAVITT Comment:Testing performed by : [facility], [address] [place] [phone] CO2 24 22 - 32 mmol/L JASON LEAVITT Comment:Testing performed by : [facility], [address] [place] [phone] Anion gap 8 2 - 15 mmol/L CERNER BJ Comment:Testing performed by : [facility], [address] [place] [phone] BUN 16 8 - 25 mg/dL CERNER BJ Comment:Testing performed by : [facility], [address] [place] [phone] Creatinine 1.07 0.60 - 1.10 mg/dL CERNER BJ Comment:Testing performed by : [facility], [address] [place] [phone] Glucose 120 70 - 199 mg/dL CERNER [...] was last revised 2017. Testing performed by: [facility], [address] [place] [phone] Calcium 10.1 8.5 - 10.3 mg/dL CERNER BJ Comment:Testing performed by : [address] [address] Bilirubin, total 0.8 0.1 - 1.2 mg/dL CERNER BJ Comment:Testing performed by : [address] [phone] Protein, pl 5.8(L) 6.5 - 8.5 g/dL CERNER BJ Comment:Testing performed by : [address] [address] Albumin 3.9 3.5 - 5.0 g/dL CERNER BJ Comment:Testing performed by : [address] [phone] Alk phos 84 40 - 130 Units/L CERNER BJ Comment:Testing performed by : [facility], [address] [place] [phone] ALT 25 7 - 45 Units/L JASON BLACK Comment:Testing performed by : [facility], [address] [place] [phone] AST 35 10 - 45 Units/L JASON BLACK Comment:Testing performed by : [facility], [address] [place] [phone] Blood 10/16/2021 9:59 AM CDT 10/16/2021 10:03 AM CDT us Eren Wu MD LAB BLOOD ORDERABLES Final Re sult JASON BLACK [facility] Department [place] [address] * (ABNORMAL) CBC with auto differential (10/16/2021 9:59 AM CDT) WBC 2.9(L) 3.8 - 9.8 K/cumm JASON BLACK Comment:Testing performed by : [facility], [address] [place] [phone] Hgb 10.1(L) 12.1 - 15.1 g/dL JASON BLACK Comment:Testing performed by : [facility], [address] [place] [phone] Hct 28.8(L) 36.1 - 44.3 % JASON BLACK Comment:Testing performed by : [facility], [address] [place] [phone] Plt 78(L) 140 - 440 K/cumm JASON BLACK Comment:Testing performed by : [address] [address] MPV 8.4 6.8 - 10.4 fL JASON BLACK Comment:Testing performed by : [address] [phone] RBC 3.03(L) 3.90 - 5.00 M/cumm JASON BLACK Comment:Testing performed by : [facility], [address] [place] [phone] MCV 95.2 80.0 - 97.6 fL CERMINNIE [facility] Comment:Testing performed by : [facility], [address] [place] [phone] MCH 33.3 26.7 - 33.7 pg CERMINNIE [facility] Comment:Testing performed by : [facility], [address] [place] [phone] MCHC 35.0 32.7 - 35.5 g/dL JASON [facility] Comment:Testing performed by : [facility], [address] [place] [phone] RDW CV 22.9(H) 11.8 - 14.6 % JASON [facility] Comment:Testing performed by : [facility], [address] [place] [phone] NRBC abs 0.00 0.00 - 0.01 K/cumm JASON [facility] Comment:Testing performed by : [facility], [address] [place] [phone] Blood 10/16/2021 9:59 AM CDT 10/16/2021 10:03 AM CDT Eren Wu MD LAB BLOOD ORDERABLES Final Re sult Performing Organization Address City/[facility] Co de Phone Number [facility] [place] [address] * (ABNORMAL) Vitamin D 25 hydroxy (10/16/2021 9:59 AM CDT) Vitamin D 25-OH 24(L) 30 - 80 ng/mL [facility] Blood 10/16/2021 9:59 AM CDT 10/16/2021 10:32 AM CDT Eren Wu MD LAB BLOOD ORDERABLES Final Re sult Performing Organization Address [facility] Co de Phone Number [facility] [place] [address] * Phosphorus (10/16/2021 9:59 AM CDT) Phosphorus, pl 2.3 2.3 - 4.5 mg/dL JASON BLACK Comment:Testing performed by : [facility], [address] [place] [phone] Blood 10/16/2021 9:59 AM CDT 10/16/2021 10:03 AM CDT us Eren Wu MD LAB BLOOD ORDERABLES Final Re sult JASON [facility] Department [place] [address] * (ABNORMAL) Lipid panel (10/16/2021 9:59 AM [...] on 2018. HDL 46 >=40 mg/dL JASON [facility] Comment: Interpretive Data Ages < [...] 2018. LDL, calculated 84 <=129 mg/dL JASON [facility] Comment: Interpretive Data Ages < [...] revised on 2018. Chol/HDL ratio 4 JASON [facility] Blood 10/16/2021 9:59 AM CDT 10/16/2021 10:32 AM CDT us Eren Wu MD LAB BLOOD ORDERABLES Final Re sult [facility] Department [place] [address] * (ABNORMAL) Chromogranin A (09/18/2021 1:21 PM CDT) Chromogranin A 912(H) <93 ng/mL JASON [facility] Comment: Impaired renal or hepatic function or treatment with proton pump inhibitors may result in artifactual elevations of Chromogranin A. ADDITIONAL INFORMATION This test was developed and its performance characteristics determined by [facility] in a manner consistent with CLIA [...] a homogeneous time-resolved immunofluorescent assay manufactured by [employer] and performed on the [employer]hiwo Kryptor Compact Plus. ? Values obtained with different assay methods or kits may be different and cannot be used interchangeably. ? Test results cannot be interpreted as absolute evidence for the presence or absence of malignant disease. Test Performed by: [facility] [address] [place] [address] Monomer Purification Operator: Immanuel Novak M.D. Ph.D.; CLIA# [id number] Blood 09/18/2021 1:21 PM CDT 09/18/2021 4:33 PM CDT Eren Wu MD LAB BLOOD ORDERABLES Final Re sult [facility] Department [place] [address] * (ABNORMAL) Comprehensive metabolic panel (09/18/2021 1:21 PM CDT) Sodium 137 135 - 145 mmol/L JASON [facility] Comment:Testing performed by : [facility], [address] [place] [phone] Potassium, pl 3.8 3.3 - 4.9 mmol/L JASON [facility] Comment:Testing performed by : [facility], [address] [place] [phone] Chloride 104 97 - 110 mmol/L JASON [facility] Comment:Testing performed by : [facility], [address] [place] [phone] CO2 24 22 - 32 mmol/L JASON [facility] Comment:Testing performed by : [facility], [address] [place] [phone] Anion gap 10 2 - 15 mmol/L JASON [facility] Comment:Testing performed by : [facility], [address] [place] [phone] BUN 28(H) 8 - 25 mg/dL CERNER BJ Comment:Testing performed by : [facility], [address] [place] [phone] Creatinine 1.55(H) 0.60 - 1.10 mg/dL CERNER BJ Comment:Testing performed by : [address] [phone] Glucose 129 70 - 199 mg/dL CERNER [...] was last revised 2017. Testing performed by: [facility], [address] [place] [phone] Calcium 10.6(H) 8.5 - 10.3 mg/dL CERNER BJ Comment:Testing performed by : [address] [phone] Bilirubin, total 0.9 0.1 - 1.2 mg/dL CERNER BJ Comment:Testing performed by : [address] [phone] Protein, pl 6.7 6.5 - 8.5 g/dL CERNER BJ Comment:Testing performed by : [address] [phone] Albumin 4.1 3.5 - 5.0 g/dL CERNER BJ Comment:Testing performed by : [address] [phone] Alk phos 98 40 - 130 Units/L CERNER BJ Comment:Testing performed by : [address] [phone] ALT 39 7 - 45 Units/L CERNER BJ Comment:Testing performed by : [facility], [address] [place] [phone] AST 54(H) 10 - 45 Units/L JASON BLACK Comment:Testing performed by : [facility], [address] [place] [phone] Blood 09/18/2021 1:21 PM CDT 09/18/2021 1:23 PM CDT Eren Wu MD LAB BLOOD ORDERABLES Final Re sult [facility] Department [place] [address] * (ABNORMAL) CBC with auto differential (09/18/2021 1:21 PM CDT) WBC 3.0(L) 3.8 - 9.8 K/cumm JASON [facility] Comment:Testing performed by : [facility], [address] [place] [phone] Hgb 13.1 12.1 - 15.1 g/dL JASON BLACK Comment:Testing performed by : [facility], [address] [place] [phone] Hct 36.9 36.1 - 44.3 % JASON BLACK Comment:Testing performed by : [address] [phone] Plt 71(L) 140 - 440 K/cumm JASON BLACK Comment:Testing performed by : [facility], [address] [place] [phone] MPV 8.5 6.8 - 10.4 fL CERMINNIE BJ Comment:Testing performed by : [address] [phone] RBC 4.14 3.90 - 5.00 M/cumm JASON BLACK Comment:Testing performed by : [address] [phone] MCV 89.0 80.0 - 97.6 fL CERMINNIE BJ Comment:Testing performed by : [facility], [address] [place] [phone] MCH 31.6 26.7 - 33.7 pg JASON [facility] Comment:Testing performed by : [facility], [address] [place] [phone] MCHC 35.5 32.7 - 35.5 g/dL JASON [facility] Comment:Testing performed by : [facility], [address] [place] [phone] RDW CV 16.1(H) 11.8 - 14.6 % JASON [facility] Comment:Testing performed by : [facility], [address] [place] [phone] NRBC abs 0.00 0.00 - 0.01 K/cumm JASON [facility] Comment:Testing performed by : [facility], [address] [place] [phone] Blood 09/18/2021 1:21 PM CDT 09/18/2021 1:23 PM CDT Eren Wu MD LAB BLOOD ORDERABLES Final Re sult Performing Organization Address [facility] Co de Phone Number [facility] [place] [id number] * Vitamin D 25 hydroxy (09/18/2021 1:21 PM CDT) [facility] Vitamin D 25-OH 33 30 - 80 ng/mL [facility] Blood 09/18/2021 1:21 PM CDT 09/18/2021 2:00 PM CDT Eren Wu MD LAB BLOOD ORDERABLES Final Re sult Performing Organization Address [facility] Co de Phone Number [facility] [place] [address] * (ABNORMAL) Phosphorus (09/18/2021 1:21 PM CDT) Pathologist [facility] Phosphorus, pl 2.1(L) 2.3 - 4.5 mg/dL JASON BLACK Comment:Testing performed by : [facility], [address] [facility] [phone] Blood 09/18/2021 1:21 PM CDT 09/18/2021 1:23 PM CDT us Eren Wu MD LAB BLOOD ORDERABLES Final Re sult JASON BLACK [facility] Department [place] [address] * (ABNORMAL) Lipid panel (09/18/2021 1:21 PM [...] on 2018. HDL 59 >=40 mg/dL JASON [facility] Comment: Interpretive Data Ages < [...] 2018. LDL, calculated 60 <=129 mg/dL JASON [facility] Comment: Interpretive Data Ages < [...] revised on 2018. Non-HDL Cholesterol 120 mg/dL [facility] Comment: Interpretive [...] revised on 2018. Chol/HDL ratio 3 [facility] Blood 09/18/2021 1:21 PM CDT 09/18/2021 2:00 PM CDT Eren Wu MD LAB BLOOD ORDERABLES Final Re sult [facility] Department [place] [address] documented in this encounter Visit Diagnoses Diagnosis [...] 10/16/202109/18 documented in this encounter Care Teams Manager Baby Relationship Specialty Start Date End Date Julio César Briseno MD PCP - General 10/01/16 Eren Wu MD Referring Physician Medical Oncology 11/25/18 Yohana Bowen MD Radiation Oncologist Radiation Oncology 11/25/18 Sabrina Willard NP [address] [place] [address] Nurse Practitioner Medical Oncology 08/17/20 11/26/21 documented as of this encounter
--- OUTSIDE RECORDS SUMMARY | 2024-06-26 02:08 | XMS_ITS | Encounter Summary ---
Author Organization [facility] Address [address] [place] [address] Phone Care Team Providers Care Round Corner Cutter Operator Name Role Phone Julio César Briseno MD Primary Care Provider Eren Cr MD Unavailable Yohana Bowen MD Unavailable Sabrina Willard NP Unavailable [phone] Reason for Visit * Reason Onset Date Comments Dizziness 08/17/2021 Encounter Details Date Type Department Care Team (Late st Contact Info) Description 08/17/2021 Telephone [facility] Oncology [address] [facility] Advanced Medicine 7th [place] [address] [place] [address] Eren Cr MD [address] [place] [address] Dizziness Social History Tobacco Use Types Packs/Day [...] on file Legal 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 RATOR MAN documented in this encounter Plan of Treatment Not on file documented as of this encounter Visit Diagnoses Not on filedocumented in this encounter Care Teams Round Corner Cutter Operator Relationship Specialty Start Date End Date Julio César Briseno MD PCP - General 10/01/16 Eren Cr MD Referring Physician Medical Oncology 11/25/18 Yohana Bowen MD Radiation Oncologist Radiation Oncology 11/25/18 Sabrina Willard NP [address] [place] [address] Nurse Practitioner Medical Oncology 08/17/20 11/26/21 documented as of this encounter
--- OUTSIDE RECORDS SUMMARY | 2024-06-26 02:08 | XMS_ITS | Encounter Summary ---
Author Organization [facility] Address [address] [place] [address] Phone Care Team Providers Care Tower Foreman Name Role Phone Julio César Briseno MD Primary Care Provider [phone] Eren Cr MD Unavailable [phone] Yohana Bowen MD Unavailable Sabrina Willard NP Unavailable [phone] Reason for Visit * Reason Comments Injections Xgeva and Sandostati n * Episode Based Medications (Routine) - Authorized Specialty Diagnoses / Procedures Referred By Contac t Referred To Contact Oncology Diagnoses 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) Procedures [place] OCTREOTIDE INJECTION, DEPOT Octreotide 28 Day Cycles - Carcinoid Eren Cr MD [address] [facility] [address] [place] [address] Phone: tel: fax: [address] [address] Phone: tel: fax: Referral ID Status Reason Start Date Expiration Date V isits Requested Visits Authorized [id number] Authorized 11/28/2017 02/05/2025 1 150 Encounter Details Date Type Department Care Team (Late st Contact Info) Description 09/18/2021 3:00 PM CDT Infusion [facility] Oncology [address] [facility] 7th [place] [address] Neuroendocrine carcinoma (CMS/HCC) (HCC) (Primary Dx); Malignant [...] on file 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 [...] accessed as pt is now going to [facility] for IVF Discharge Plan Discharge instructions given to patient. Discharge Mode: Ambulatory Accompanied by: Spouse Discharged To: [facility] documented in this encounter Plan of Treatment [...] First Orde red Date ONCBCN NURSING COMMUNICATION [id number] 1 0 09/18/2021 PHYSICIAN COMMUNICATION ORDER 1 09/18/2021 Appointment Requests Count Last Ordered Date Fi rst Ordered Date ONCBCN INJECTION APPOINTMENT REQUEST 1 09/05 documented in this encounter Care Teams Tower Foreman Relationship Specialty Start Date End Date Julio César Briseno MD PCP - General 10/01/16 Eren Cr MD Referring Physician Medical Oncology 11/25/18 Yohana Bowen MD Radiation Oncologist Radiation Oncology 11/25/18 Sabrina Willard NP [address] [place] [address] Nurse Practitioner Medical Oncology 08/17/20 11/26/21 documented as of this encounter
--- OUTSIDE RECORDS SUMMARY | 2024-06-26 02:08 | XMS_ITS | Encounter Summary ---
Author Organization [facility] Address [address] [place] [address] Phone Care Team Providers Care Tube Laser Operator Name Role Phone Julio César Briseno MD Primary Care Provider Eren Cr MD Unavailable [phone] Yohana Bowen MD Unavailable Sabrina Willard NP Unavailable Encounter Details Date Type Department Care Team (Late st Contact Info) Description 08/17/2021 Telephone [facility] Oncology [address] [facility] Advanced Medicine 7th [place] [address] [place] [address] Eren Cr MD [address] [facility] [address] [place] [address] Social History Tobacco Use Types Packs/Day Years [...] file Legal Sex Female 2:41 PM SPECIAL SERVICES AGENT Gender Identity Not on file Sexual [...] any recommendations for Saturday or prior to. IAL SERVICES AGENT documented in this encounter Plan of Treatment Not on file documented as of this encounter Visit Diagnoses Not on filedocumented in this encounter Care Teams Tube Laser Operator Relationship Specialty Start Date End Date Julio César Briseno MD PCP - General 10/01/16 Eren Cr MD Referring Physician Medical Oncology 11/25/18 Yohana Bowen MD Radiation Oncologist Radiation Oncology 11/25/18 Sabrina Willard NP [address] [place] [address] Nurse Practitioner Medical Oncology 08/17/20 11/26/21 documented as of this encounter
--- OUTSIDE RECORDS SUMMARY | 2024-06-26 02:08 | XMS_ITS | Encounter Summary ---
Author Organization [facility] Address [address] [place] [address] Phone Care Team Providers Care Award Machine Operator Name Role Phone Julio César Briseno MD Primary Care Provider Eren Cr MD Unavailable Yohana Bowen MD Unavailable Sabrina Willard NP Unavailable Encounter Details Date Type Department Care Team (Late st Contact Info) Description 09/25/2021 Orders Only [facility] Oncology [address] [facility] Advanced Medicine 7th [place] [address] [place] [address] Eren Cr MD [address] [facility] [address] [place] [address] Social History Tobacco Use Types Packs/Day Years [...] file Legal Sex Female 2:41 PM 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 Gender Identity Not on file Sexual Orientation Straight 02/19/2021 9: 29 AM CDT Occupation Industry Job Start Date Job End Date retired Not on file Not on file Not on file documented as of this encounter Plan of Treatment Not on file documented as of this encounter Visit Diagnoses Not on filedocumented in this encounter Care Teams Award Machine Operator Relationship Specialty Start Date End Date Julio César Briseno MD PCP - General 10/01/16 Eren Cr MD Referring Physician Medical Oncology 11/25/18 Yohana Bowen MD Radiation Oncologist Radiation Oncology 11/25/18 Sabrina Willard NP [address] [place] [address] Nurse Practitioner Medical Oncology 08/17/20 11/26/21 documented as of this encounter
--- OUTSIDE RECORDS SUMMARY | 2024-06-26 02:08 | XMS_ITS | Encounter Summary ---
Author Organization [facility] Address [address] [place] [address] Phone Care Team Providers Care Adjustment Clerk Name Role Phone Julio César Briseno MD Primary Care Provider [phone] Eren Cr MD Unavailable Yohana Bowen MD Unavailable Sabrina Willard NP Unavailable [phone] Reason for Referral * MRI/CAT/PET Scan (Routine) - Closed Specialty Diagnoses / Procedures Referred By Contac t Referred To Contact Radiology Diagnoses Neuro-endocrine carcinoma (HCC) Procedures MRI Brain W WO Contrast Eren Cr MD [address] [place] [address] Phone: tel: fax: [address] [address] Referral ID Status Reason Start Date Expiration Date Visits Re quested Visits Authorized [id number] Closed 08/18/2021 09/17/2022 1 1 DEVELOPMENT CONSULTANT Encounter Details Date Type Department Care Team (Late st Contact Info) Description 08/18/2021 Orders Only [facility] Oncology [address] [facility] 7th [place] [address] [place] [address] Eren Cr MD [address] [facility] [address] [place], [place] [id number] Neuro-endocrine carcinoma (CMS/HCC) (HCC) (Primary Dx) Social [...] file Legal Sex Female 2:41 PM AREA 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
--- OUTSIDE RECORDS SUMMARY | 2024-06-26 02:08 | XMS_ITS | Encounter Summary ---
Author Organization [facility] Address [address] [place] [address] Phone Care Team Providers Care Vegetable Harvest Worker Name Role Phone Julio César Briseno MD Primary Care Provider [phone] Eren Cr MD Unavailable [phone] Yohana Bowen MD Unavailable Sabrina Willard NP Unavailable [phone] 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) Procedures [place] OCTREOTIDE INJECTION, DEPOT Octreotide 28 Day Cycles - Carcinoid Eren Cr MD [address] [facility] [address] [place] [address] Phone: tel: fax: [facility] [address] [address] Phone: tel: fax: Referral ID Status Reason Start Date Expiration Date V isits Requested Visits Authorized [id number] Authorized 11/28/2017 02/05/2025 1 150 Encounter Details Date Type Department Care Team (Latest Contact Info) Description 09/18/2021 12:45 PM CDT Clinical Support [facility] Oncology [address] [facility] 7th [address] [place] [address] Neuroendocrine carcinoma (CMS/HCC) (HCC) (Primary Dx); Malignant [...] on file 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 Current interpretive data was last revised 2018. Creatinine Ur 366.0 mg/dL [facility] Comment: Interpretive Data No reference range established. Current interpretive data was last revised 2018. Protein/creatinin e ratio 132.0 0.0 - 180.0 mg/g CR [facility] Urine 09/18/2021 3:50 PM CDT 09/18/2021 4:59 PM CDT us Eren Cr MD LAB URINE ORDERABLES Final Re sult [facility] Department [place] [address] * (ABNORMAL) eGFR (09/18/2021 1:21 PM CDT) Pathologist [facility] eGFR 35(L) 90 - 130 mL/min/1. 73 m2 [facility] Comment: Interpretive Data Reference Interval Normal [...] was last reviewed 2021. Testing performed by: [facility], [address] [place] [phone] Blood 09/18/2021 1:21 PM CDT 09/18/2021 1:23 PM CDT us Eren Cr MD LAB BLOOD ORDERABLES Final Re sult [facility] Department [place] [address] * (ABNORMAL) Differential, auto (09/18/2021 1:21 PM CDT) Neutrophil abs 1.8 1.8 - 6.6 K/cumm [facility] Comment:Testing performed by : [facility], [address] [place] [phone] Lymphocyte abs 0.7(L) 1.2 - 3.3 K/cumm [facility] Comment:Testing performed by : [facility], [address] [place] [phone] Monocyte abs 0.3 0.2 - 1.2 K/cumm [facility] Comment:Testing performed by : [facility], [address] [place] [address] Eosinophil abs 0.2 0.0 - 0.5 K/cumm [facility] Comment:Testing performed by : [facility], [address] [place] [phone] Basophil abs 0.0 0.0 - 0.2 K/cumm [facility] Comment:Testing performed by : [facility], [address] [place] [phone] Neutrophil pct 61.3 % [facility] Comment: Interpretive Data Percent cell count reference ranges are not reported, since discordance with absolute values may lead to misinterpretation of CBC data. Current Interpretive Data was last revised on 2017. Testing performed by: [facility], [address] [place] [phone] Lymphocyte pct 22.9 % [facility] Comment: Interpretive Data Percent cell count reference ranges are not reported, since discordance with absolute values may lead to misinterpretation of CBC data. Current Interpretive Data was last revised on 2017. Testing performed by: [facility], [address] [place] [phone] Monocyte pct 9.6 % [facility] Comment:Testing performed by : [facility], [address] [place] [phone] Eosinophil pct 5.4 % [facility] Comment:Testing performed by : [facility], [address] [place] [address] Basophil pct 0.8 % [facility] Comment:Testing performed by : [facility], [address] [place] [phone] Blood 09/18/2021 1:21 PM CDT 09/18/2021 1:23 PM CDT Eren Cr MD LAB BLOOD ORDERABLES Final Re sult Performing Organization Address [facility] Co de Phone Number [facility] Department [place] [address] * (ABNORMAL) Magnesium (09/18/2021 1:21 PM CDT) Magnesium 1.2(L) 1.4 - 2.5 mg/dL [facility] Comment:Testing performed by : [facility], [address] [place] [phone] Blood 09/18/2021 1:21 PM CDT 09/18/2021 1:23 PM CDT Eren Cr MD LAB BLOOD ORDERABLES Final Re sult Performing Organization Address [facility] Co de Phone Number [facility] Department [place] [address] * (ABNORMAL) Lipid panel (09/18/2021 1:21 PM CDT) Cholesterol 179 30 - 199 mg/dL [facility] revised on 2018. Triglycerides 301(H) <=149 mg/dL [facility] Comment: Interpretive Data Ages < or [...] 2018. LDL, calculated 60 <=129 mg/dL [facility] Comment: Interpretive Data Ages < or [...] ORDERABLES Final Re sult [facility] [place] [address] * (ABNORMAL) Phosphorus (09/18/2021 1:21 PM CDT) Phosphorus, pl 2.1(L) 2.3 - 4.5 mg/dL [facility] Comment:Testing performed by : [facility], [address] [place] [phone] Blood 09/18/2021 1:21 PM CDT 09/18/2021 1:23 PM CDT Eren Cr MD LAB BLOOD ORDERABLES Final Re sult Performing Organization Address [facility] Co de Phone Number [facility] [place] [address] * Vitamin D 25 hydroxy (09/18/2021 1:21 PM CDT) Pathologist [facility] Vitamin D 25-OH 33 30 - 80 ng/mL [facility] Blood 09/18/2021 1:21 PM CDT 09/18/2021 2:00 PM CDT Eren Cr MD LAB BLOOD ORDERABLES Final Re sult Performing Organization Address [facility] de Phone Number [facility] Department [place] [address] * (ABNORMAL) CBC with auto differential (09/18/2021 1:21 PM CDT) [facility] WBC 3.0(L) 3.8 - 9.8 K/cumm [facility] Comment:Testing performed by : [facility], [address] [place] [phone] Hgb 13.1 12.1 - 15.1 g/dL [facility] Comment:Testing performed by : [facility], [address] [place] [phone] Hct 36.9 36.1 - 44.3 % [facility] Comment:Testing performed by : [facility], [address] [place] [phone] Plt 71(L) 140 - 440 K/cumm [facility] Comment:Testing performed by : [facility], [address] [place] [phone] MPV 8.5 6.8 - 10.4 fL [facility] Comment:Testing performed by : [facility], [address] [place] [phone] RBC 4.14 3.90 - 5.00 M/cumm [facility] Comment:Testing performed by : [facility], [address] [place], [place] [phone] MCV 89.0 80.0 - 97.6 fL [facility] Comment:Testing performed by : [facility], [address] [place] [phone] MCH 31.6 26.7 - 33.7 pg [facility] Comment:Testing performed by : [facility], [address] [place] [phone] MCHC 35.5 32.7 - 35.5 g/dL [facility] Comment:Testing performed by : [place] [phone] RDW CV 16.1(H) 11.8 - 14.6 % [facility] Comment:Testing performed by : [facility], [address] [place] [phone] NRBC abs 0.00 0.00 - 0.01 K/cumm [facility] Comment:Testing performed by : [address] [phone] Blood 09/18/2021 1:21 PM CDT 09/18/2021 1:23 PM CDT Eren Cr MD LAB BLOOD ORDERABLES Final Re sult [facility] Department [place] [address] * (ABNORMAL) Comprehensive metabolic panel (09/18/2021 1:21 PM CDT) Sodium 137 135 - 145 mmol/L [facility] Comment:Testing performed by : [address] [address] Potassium, pl 3.8 3.3 - 4.9 mmol/L [facility] Comment:Testing performed by : [facility], [address] [place] [phone] Chloride 104 97 - 110 mmol/L [facility] Comment:Testing performed by : [facility], [address] [place] [address] CO2 24 22 - 32 mmol/L [facility] Comment:Testing performed by : [facility], [address] [place] [phone] Anion gap 10 2 - 15 mmol/L [facility] Comment:Testing performed by : [facility], [address] [place] [phone] BUN 28(H) 8 - 25 mg/dL [facility] Comment:Testing performed by : [facility], [address] [place] [phone] Creatinine 1.55(H) 0.60 - 1.10 mg/dL [facility] Comment:Testing performed by : [facility], [address] [place] [phone] Glucose 129 70 - 199 mg/dL [facility] [...] was last revised 2017. Testing performed by: [facility], [address] [place] [phone] Calcium 10.6(H) 8.5 - 10.3 mg/dL [facility] Comment:Testing performed by : [facility], [address] [place] [address] Bilirubin, total 0.9 0.1 - 1.2 mg/dL [facility] Comment:Testing performed by : [facility], [address] [place] [phone] Protein, pl 6.7 6.5 - 8.5 g/dL [facility] Comment:Testing performed by : [facility], [address] [place] [address] Albumin 4.1 3.5 - 5.0 g/dL [facility] Comment:Testing performed by : [facility], [address] [place] [address] Alk phos 98 40 - 130 Units/L [facility] Comment:Testing performed by : [facility], [address] [place] [phone] ALT 39 7 - 45 Units/L [facility] Comment:Testing performed by : [facility], [address] [place] [phone] AST 54(H) 10 - 45 Units/L [facility] Comment:Testing performed by : [facility], [address] [place] [phone] Blood 09/18/2021 1:21 PM CDT 09/18/2021 1:23 PM CDT Eren Cr MD LAB BLOOD ORDERABLES Final Re sult [facility] Department [place] [address] * (ABNORMAL) Chromogranin A (09/18/2021 1:21 PM CDT) Chromogranin A 912(H) <93 ng/mL [facility] Comment: Impaired renal or hepatic function or treatment with proton pump inhibitors may result in artifactual elevations of Chromogranin A. ADDITIONAL INFORMATION This test was developed and its performance characteristics determined by [facility] in a manner consistent with [...] a homogeneous time-resolved immunofluorescent assay manufactured by [employer] and performed on the [employer] Kryptor Compact Plus. ? Values obtained with different assay methods or kits may be different and cannot be used interchangeably. ? Test results cannot be interpreted as absolute evidence for the presence or absence of malignant disease. Test Performed by: [facility] [address] [place] [address] Ultrasound Spec: Immanuel Novak M.D. Ph.D.; CLIA# [id number] Blood 09/18/2021 1:21 PM CDT 09/18/2021 4:33 PM CDT Eren Cr MD LAB BLOOD ORDERABLES Final Re sult Performing Organization Address City/State/ZIP Co wi Phone Number [facility] Department [place] [address] documented in this encounter Visit Diagnoses Diagnosis [...] 09/18/2021 documented in this encounter Care Teams Vegetable Harvest Worker Relationship Specialty Start Date End Date Julio César Briseno MD PCP - General 10/01/16 Eren Cr MD Referring Physician Medical Oncology 11/25/18 Yohana Bowen MD Radiation Oncologist Radiation Oncology 11/25/18 Sabrina Willard, CECILIA [address] [place] [address] Nurse Practitioner Medical Oncology 08/17/20 11/26/21 documented as of this encounter
--- OUTSIDE RECORDS SUMMARY | 2024-06-26 02:08 | XMS_ITS | Encounter Summary ---
Author Organization [facility] Address [address] [place] [address] Phone Care Team Providers Care Veterinary Technology Instructor Name Role Phone Julio César Briseno MD Primary Care Provider Eren Cr MD Unavailable [phone] Yohana Bowen MD Unavailable Sabrina Willard NP Unavailable [phone] Encounter Details Date Type Department Care Team (Late st Contact Info) Description 08/21/2021 Orders Only [facility] Oncology [address] 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 Gender Identity Not on file Sexual Orientation Straight 02/19/2021 9: 29 AM CDT Occupation Industry Job Start Date Job End Date retired Not on file Not on file Not on file documented as of this encounter Plan of Treatment Not on file documented as of this encounter Visit Diagnoses Not on filedocumented in this encounter Care Teams Veterinary Technology Instructor Relationship Specialty Start Date End Date Julio César Briseno MD PCP - General 10/01/16 Eren Cr MD Referring Physician Medical Oncology 11/25/18 Yohana Bowen MD Radiation Oncologist Radiation Oncology 11/25/18 Sabrina Willard NP [address] [place] [address] Nurse Practitioner Medical Oncology 08/17/20 11/26/21 documented as of this encounter
--- OUTSIDE RECORDS SUMMARY | 2024-06-26 02:08 | XMS_ITS | Encounter Summary ---
Author Organization [facility] Address [address] [place] [address] Phone Care Team Providers Care Vessel Manager Name Role Phone Julio César Briseno MD Primary Care Provider [phone] Eren Cr MD Unavailable [phone] Yohana Bowen MD Unavailable Sabrina Willard NP Unavailable [phone] Reason for Referral * MRI/CAT/PET Scan (Routine) - Closed Specialty Diagnoses / Procedures Referred By Contac t Referred To Contact Radiology Diagnoses 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) Bone metastasis Procedures CT chest abdomen pelvis with contrast Eren Cr MD [address] [place] [address] Phone: tel: fax: [address] [address] Referral ID Status Reason Start Date Expiration Date Visits Re quested Visits Authorized [id number] Closed 09/18/2021 10/18/2022 1 1 Encounter Details Date Type Department Care Team (Late st Contact Info) Description 09/18/2021 Orders Only [facility] Oncology [address] [facility] 7th [place] [address] [place] [address] Eren Cr MD [address] [facility] [address] [place] [address] Neuro-endocrine carcinoma (CMS/HCC) (HCC) (Primary Dx); Malignant [...] on file Legal Sex 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
--- OUTSIDE RECORDS SUMMARY | 2024-06-26 02:08 | XMS_ITS | Encounter Summary ---
Author Organization [facility] Address [address] [place] [address] Phone Care Team Providers Care Java Portal Developer Name Role Phone Julio César Briseno MD Primary Care Provider [phone] Eren Cr MD Unavailable Yohana Bowen MD Unavailable Sabrina Willard NP Unavailable Encounter Details Date Type Department Care Team (Late st Contact Info) Description 08/21/2021 Orders Only [facility] Oncology [address] [facility] Advanced Medicine 7th [place] [address] [place] [address] Eren Cr MD [address] [facility] [address] [place] [address] Social History Tobacco Use Types Packs/Day Years [...] on file Legal Sex Female 2:41 PM JEWEL DIAMETER GAUGER Gender Identity Not on file Sexual Orientation Straight 02/19/2021 9: 29 AM CDT Occupation Industry Job Start Date Job End Date retired Not on file Not on file Not on file documented as of this encounter Plan of Treatment Not on file documented as of this encounter Visit Diagnoses Not on filedocumented in this encounter Care Teams Java Portal Developer Relationship Specialty Start Date End Date Julio César Briseno MD PCP - General 10/01/16 Eren Cr MD Referring Physician Medical Oncology 11/25/18 Yohana Bowen MD Radiation Oncologist Radiation Oncology 11/25/18 Sabrina Willard NP [address] [place] [address] Nurse Practitioner Medical Oncology 08/17/20 11/26/21 documented as of this encounter
--- OUTSIDE RECORDS SUMMARY | 2024-06-26 02:08 | XMS_ITS | Encounter Summary ---
Author Organization [facility] Address [address] [place] [address] Phone Care Team Providers Care Temporary Office Assistant Name Role Phone Julio César Briseno MD Primary Care Provider [phone] Eren Cr MD Unavailable [phone] Yohana Bowen MD Unavailable Sabrina Willard NP Unavailable [phone] Encounter Details Date Type Department Care Team (Late st Contact Info) Description 08/31/2021 Orders Only [facility] Oncology [address] [facility] Advanced Medicine 7th [place] [address] [place] [address] Elaine Coy Neuro-endocrine carcinoma (CMS/HCC) [...] on file Legal Sex Female 2: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
--- OUTSIDE RECORDS SUMMARY | 2024-06-26 02:08 | XMS_ITS | Encounter Summary ---
Author Organization [facility] Healthcare Address [address] [place] [address] Care Team Providers Care Library Media Assistant Name Role Phone Julio César Briseno MD Primary Care Provider [phone] Eren Cr MD Unavailable [phone] Yohana Bowen MD Unavailable Sabrina Willard NP Unavailable [phone] Reason for Referral * Diagnostic Imaging (Routine) - Closed Specialty Diagnoses / Procedures Referred By Evelyne bowman Referred To Contact Radiology Diagnoses Neuro-endocrine carcinoma (HCC) Procedures IR Port Placement Chest > 5 Years Eren Cr MD [address] [place] [address] Phone: tel: fax: [address] [address] Referral ID Status Reason Start Date Expiration Date Visits Re quested Visits Authorized [id number] Closed 09/06/2021 10/06/2022 1 1 STIC SENSOR OPERATOR Reason for Visit * Diagnostic Imaging (Routine) - Closed Specialty Diagnoses / Procedures Referred By Contac t Referred To Contact Radiology Diagnoses Neuro-endocrine carcinoma (HCC) Procedures IR Port Placement Chest > 5 Years Eren Cr MD [address] [facility] [address] [place] [address] Phone: tel: fax: [facility] [address] [facility] [place] [address] Referral ID Status Reason Start Date Expiration Date Visits Re quested Visits Authorized [id number] Closed 09/06/2021 10/06/2022 1 1 Encounter Details Date Type Department Care Team (Latest Contact Info) Description 09/14/2021 12:00 PM ACOUSTIC SENSOR OPERATOR - 09/14/2021 4:10 PM ACOUSTIC SENSOR OPERATOR Hospital Encounter [facility] Radiology [facility] [place] [address] [place] [address] Eren Cr MD [address] [facility] [address] [place] [address] Neuro-endocrine carcinoma (CMS/HCC) (HCC) Discharge Disposition: Discharge [...] file Legal Sex Female 2:41 PM ACOUSTIC SENSOR OPERATOR Gender Identity Not on file Sexual Orientation Straight 02/19/2021 9: 29 AM CDT Occupation Industry Job Start Date Job End Date retired Not on file Not on file Not on file documented as of this encounter Last Filed Vital Signs Vital Sign Reading Time Taken Comments Blood Pressure 113/51 09/14/2021 2:55 PM ACOUSTIC SENSOR OPERATOR Pulse 74 09/14/2021 2:55 PM ACOUSTIC SENSOR OPERATOR Temperature 36 ??C (96.8 ??F) 09/14/2021 2:55 PM ACOUSTIC SENSOR OPERATOR Respiratory Rate 18 09/14/2021 2:55 PM ACOUSTIC SENSOR OPERATOR Oxygen Saturation 93% 09/14/2021 2:55 PM ACOUSTIC SENSOR OPERATOR Inhaled Oxygen Concentration - - Weight - - Height - - Body Mass Index - - documented in this encounter Discharge Diagnoses Diagnosis Other malignant neuroendocrine tumors (HCC) - OTHER MALIGNANT NEUROENDOCRINE TUMORS Essential (primary) hypertension - ESSENTIAL (PRIMARY) HYPERTENSION Unspecified essential hypertension Pure hypercholesterolemia, unspecified - PURE HYPERCHOLESTEROLEMIA, UNSPECIFIED Other halfway (current) drug therapy - OTHER LONGTERM (CURRENT) DRUG THERAPY Allergy status to narcotic [...] Soniya Flores PA - 09/14/2021 2:48 PM ACOUSTIC SENSOR OPERATOR Interventional Radiology Outpatient Discharge Instructions/Note Diagnosis: neuroendocrine [...] draining. To contact an Interventional Radiologist at [facility] call [phone] Saturday through Saturday from 7:30am-4:30pm. At all other times call [phone] and ask that the Interventional Radiologist be paged. To contact an Interventional Radiologist at [facility] call [phone] Saturday through Saturday from 7:30am-3:30pm. Special instructions: [...] at Please come to: [] 3rd Floor [facility] [] 4th floor [facility] [] [facility] [] [facility] Please call [phone] to schedule a follow up appointment. You need to return in STIC SENSOR OPERATOR documented in this encounter Medications at Time [...] capsuleIndications :supplement Take 1 tablet by mouth audio visual technician before breakfast 07/04/2016 4 cholecalciferol (VITAMIN D-3) 2,000 unit capsule Take 1 capsule (2,000 Units total) by mouth daily 30 capsule 2 04/25/2019 3 cholestyramine (QUESTRAN) 4 gram packet Take 1 packet by mouth 3 (three) times a day with meals 270 packet 3 09/04/2019 2 clotrimazole-betam ethasone (LOTRISONE) cream Apply 1 Application topically daily as needed (rash) 4 coenzyme [id number] E 100-5 mg-unit capsuleIndications :supplement Take 1 tablet by mouth audio visual technician before breakfast 4 denosumab (XGEVA) 120 [...] dose).?? Avoid Jas's Wort, grapefruit products and [place] oranges while on treatment. placed on [...] Soniya Flores PA - 09/14/2021 3:00 PM ACOUSTIC SENSOR OPERATOR Radiology Brief Post Procedure Note Attending: Julio César Cormier M.D. C 13 Catapult Operator: SERGEY Pal Sedation/Anesthesia: Min Sedation Pre-Op/Pre-Procedure Diagnosis: neuroendocrine Post-Op/Post-Procedure Diagnosis: same Procedure Performed: Port placement Procedure Findings: successful Complications: None Estimated Blood Loss: < 30 ml Specimens: None Condition: Stable Full report to follow. STIC SENSOR OPERATOR * Pre-Procedure Note - Soniya Flores PA - 09/14/2021 12:38 PM ACOUSTIC SENSOR OPERATOR PRE-SEDATION ASSESSMENT/H&P (LONG FORM) Patient is a [...] ??? JOINT REPLACEMENT Left 2014 ? ? OR REMOVAL OF TONSILS,<12 Y/O Tonsillectomy - (Added by TW Conv) ??? OR TOTAL ABDOM HYSTERECTOMY Hysterectomy - (Added by [...] fluticasone propionate (FLONASE) 50 mcg/actuation nasal spray [facility] cabozantinib/placebo (/[id number]) 20 mg tablet LORazepam (ATIVAN) 0.5 mg tablet octreotide (SandoSTATIN) 100 mcg/mL injection olmesartan-hydrochlorothiazide (BENICAR HCT) 20-12.5 mg per tablet albuterol HFA (PROVENTIL HFA,VENTOLIN HFA,PROAIR HFA) 90 mcg/actuation inhaler cholestyramine (QUESTRAN) 4 gram packet clotrimazole-betamethasone (LOTRISONE) cream coenzyme [id number] E 100-5 mg-unit capsule denosumab (XGEVA) 120 [...] been discussed with the patient and/or their community relations representative. All questions answered and they agree to proceed. Cosigned by Julio César Cormier MD at 09/14/2021 3:35 PM ACOUSTIC SENSOR OPERATOR STIC SENSOR OPERATOR STIC SENSOR OPERATOR documented in this encounter Plan of Treatment Not on file documented as of this encounter Procedures Procedure Name Priority Date/Time Associated Diagnosis Comments PORT PLACEMENT CHEST >5 YEARS Schedule Routine, Read Routine (OP Routine) 09/14/2021 2:48 PM ACOUSTIC SENSOR OPERATOR Neuro-endocrine carcinoma (CMS/HCC) (HCC) documented in this encounter Results * IR Port Placement Chest > 5 Years (09/14/2021 2:48 PM ACOUSTIC SENSOR OPERATOR) Anatomical Region Laterality Modality Chest N/A Radio Fluoroscop y 09/14/2021 2:51 PM ACOUSTIC SENSOR OPERATOR Impressions 09/14/2021 2:51 PM ACOUSTIC SENSOR OPERATOR Successful chest wall port placement. PLAN: The catheter is ready for immediate use. Please note that a power injectable port was placed. When treatment is completed, removal can be scheduled by calling [facility] - [phone] [facility] - [phone] Electronically signed by: Soniya Richardson 09/14/2021 2:51 PM ACOUSTIC SENSOR OPERATOR EXAMINATION: ??PORT PLACEMENT USING ULTRASOUND GUIDANCE (STD TECHNIQUE) HISTORY: 70-year-old female with neuroendocrine carcinoma referred for port placement for treatment. Provider PRESENCE: Charlene Pal-Neil was present from the beginning to the end of the procedure. ?? SEDATION: Conscious sedation was used for the procedure. TECHNIQUE: The risks, benefits and alternatives were discussed and informed consent was obtained. ??Prior to beginning the procedure, [place] Protocol was used to confirm the patient's [...] was obtained. Prior to beginning the procedure, [place] Protocol was used to confirm the patient's [...] completed, removal can be scheduled by calling [facility] - [phone] [facility] - [phone] Electronically signed by: Soniya Flores Eren Cr [...] 09/14/21 at 1410 Given 09/14/2021 2:10 PM ACOUSTIC SENSOR OPERATOR 50 mcg fentaNYL (SUBLIMAZE) preservative free injection intravenous, Code/trauma/sedation medication, Starting on Lydia 09/14/21 at 1430 Given 09/14/2021 2:30 PM ACOUSTIC SENSOR OPERATOR 50 mcg heparin 100 unit/mL injection Code/trauma/sedation medication, Starting on Lydia 09/14/21 at 1440, Indications: Maintain Patency of Indwelling Vascular CatheterIndications:Maintain Patency of Indwelling Vascular Catheter Given 09/14/2021 2:40 PM ACOUSTIC SENSOR OPERATOR 5 mL lidocaine PF (XYLOCAINE) 10 mg/mL (1 %) preservative free injection Code/trauma/sedation medication, Starting on Lydia 09/14/21 at 1430, Intra-Procedure (IR), Indications: Administration of Local AnesthesiaIndications:Administ ration of Local Anesthesia Given 09/14/2021 2:30 PM ACOUSTIC SENSOR OPERATOR 10 mL lidocaine PF (XYLOCAINE) 10 mg/mL (1 %) preservative free injection Code/trauma/sedation medication, Starting on Lydia 09/14/21 at 1432, Intra-Procedure (IR), Indications: Administration of Local AnesthesiaIndications:Administ ration of Local Anesthesia Given 09/14/2021 2:17 PM ACOUSTIC SENSOR OPERATOR 2 mL midazolam (VERSED) 1 mg/mL preservative free injection intravenous, Administer over 2 Minutes, Code/trauma/sedation medication, Starting on Lydia 09/14/21 at 1410, Intra-Procedure (IR) Given 09/14/2021 2:10 PM ACOUSTIC SENSOR OPERATOR 1 mg midazolam (VERSED) 1 mg/mL preservative free injection intravenous, Administer over 2 Minutes, Code/trauma/sedation medication, Starting on Lydia 09/14/21 at 1430, Intra-Procedure (IR) Given 09/14/2021 2:30 PM ACOUSTIC SENSOR OPERATOR 1 mg ondansetron (ZOFRAN) injection Administer over 2 Minutes, Code/trauma/sedation medication, Starting on Lydia 09/14/21 at 1425 Given 09/14/2021 2:25 PM ACOUSTIC SENSOR OPERATOR 8 mg sodium chloride 0.9% flush 0.5-20 [...] Pre-Procedure (IR) New Bag 09/14/2021 12:38 PM ACOUSTIC SENSOR OPERATOR 30 mL/hr 30 mL/hr documented in this encounter Active and Recently Administered Medications Times are shown in ACOUSTIC SENSOR OPERATOR. Scheduled Medication Order 09/12/2021 09/13/2021 09/14/2021 sodium [...] 2021 documented in this encounter Care Teams Library Media Assistant Relationship Specialty Start Date End Date Julio César Briseno MD PCP - General 10/01/16 Eren Cr MD Referring Physician Medical Oncology 11/25/18 Yohana Bowen MD Radiation Oncologist Radiation Oncology 11/25/18 Sabrina Willard NP [address] [place] [address] Nurse Practitioner Medical Oncology 08/17/20 11/26/21 documented as of this encounter
--- OUTSIDE RECORDS SUMMARY | 2024-06-26 02:08 | XMS_ITS | Encounter Summary ---
Author Organization [facility] Address [address] [place] [address] Phone Care Team Providers Care Site Identification Specialist Name Role Phone Julio César Briseno MD Primary Care Provider Eren Cr MD Unavailable [phone] Yohana Bowen MD Unavailable Sabrina Willard NP Unavailable Encounter Details Date Type Department Care Team (Late st Contact Info) Description 08/18/2021 Orders Only [facility] Oncology [address] [facility] Advanced Medicine 7th [place] [address] [place] [address] Elaine Coy Neuro-endocrine carcinoma (CMS/HCC) [...] on file Legal Sex Female 2:41 PM ZMT OPERATOR Gender Identity Not on file Sexual [...] 08/21/2021 documented in this encounter Care Teams Site Identification Specialist Relationship Specialty Start Date End Date Julio César Briseno MD PCP - General 10/01/16 Eren Cr MD Referring Physician Medical Oncology 11/25/18 Yohana Bowen MD Radiation Oncologist Radiation Oncology 11/25/18 Sabrina Willard NP [address] [place] [address] Nurse Practitioner Medical Oncology 08/17/20 11/26/21 documented as of this encounter
--- OUTSIDE RECORDS SUMMARY | 2024-06-26 02:08 | XMS_ITS | Encounter Summary ---
Author Organization [facility] Address [address] [place] [address] Phone Care Team Providers Care Beverage Specialist Name Role Phone Julio César Briseno MD Primary Care Provider [phone] Eren Cr MD Unavailable [phone] Yohana Bowen MD Unavailable Sabrina Willard NP Unavailable [phone] Reason for Visit * Episode Based Medications (Routine) - Closed Specialty Diagnoses / Procedures Referred By Contac t Referred To Contact Diagnoses Neuro-endocrine carcinoma (HCC) Procedures study [id number] phase III cabozantinib Eren Cr MD [address] [facility] [address] [place] [address] Phone: tel: fax: [facility] [address] [facility] Advanced Medicine 7th [place] [address] Phone: tel: Referral ID Status Reason Start Date Expiration Date Visits Re quested Visits Authorized [id number] Closed 06/21/2021 06/26/2024 1 99 Encounter Details Date Type Department Care Team (Late st Contact Info) Description 09/04/2021 11:15 AM EXCELSIOR MACHINE OPERATOR Office Visit [facility] Oncology [address] [facility] 7th [place] [address] [place] [address] Eren Cr MD [address] [facility] [address] [facility] [address] [place] [address] Neuroendocrine carcinoma (CMS/HCC) (HCC) (Primary Dx); Malignant [...] on file Legal Sex Female 2:41 PM EXCELSIOR MACHINE OPERATOR Gender Identity Not on file Sexual Orientation Straight 02/19/2021 9: 29 AM CDT Occupation Industry Job Start Date Job End Date retired Not on file Not on file Not on file documented as of this encounter Last Filed Vital Signs Vital Sign Reading Time Taken Comments Blood Pressure 112/69 09/04/2021 11:22 AM EXCELSIOR MACHINE OPERATOR Pulse 87 09/04/2021 11:22 AM EXCELSIOR MACHINE OPERATOR Temperature 36.4 ??C (97.5 ??F) 09/04/2021 11:[address] Respiratory Rate 18 09/04/2021 11:22 AM EXCELSIOR MACHINE OPERATOR Oxygen Saturation 95% 09/04/2021 11:22 AM EXCELSIOR MACHINE OPERATOR Inhaled Oxygen Concentration - - Weight 76.5 kg (168 lb 9.6 oz) 09/04/2021 11:22 AM EXCELSIOR MACHINE OPERATOR Height - - Body Mass Index 30.75 07/17/2021 2:15 PM EXCELSIOR MACHINE OPERATOR documented in this encounter Progress Notes [...] also underwent right colectomy in [facility] OR by Dr. Greyson Reeves. [...] No rashes over exposed skin NEURO: A&Ox4, product safety coordinator grossly intact by conversation, moving all [...] Cr Jr., MD at 09/06/2021 9:20 AM EXCELSIOR MACHINE OPERATOR LSIOR MACHINE OPERATOR LSIOR MACHINE OPERATOR LSIOR MACHINE OPERATOR documented in this encounter Plan [...] COVID: Suspected 09/04/2021 09/04/2021 09/04/2021 4:06 PM EXCELSIOR MACHINE OPERATOR documented as of this encounter Care Teams Beverage Specialist Relationship Specialty Start Date End Date Julio César Briseno MD PCP - General 10/01/16 Eren Cr MD Referring Physician Medical Oncology 11/25/18 Yohana Bowen MD Radiation Oncologist Radiation Oncology 11/25/18 Sabrina Willard NP [address] [place] [address] Nurse Practitioner Medical Oncology 08/17/20 11/26/21 documented as of this encounter
--- OUTSIDE RECORDS SUMMARY | 2024-06-26 02:08 | XMS_ITS | Encounter Summary ---
Author Organization [facility] Address [address] [place] [address] Phone Care Team Providers Care Coremaker Name Role Phone Julio César Briseno MD Primary Care Provider Eren Cr MD Unavailable Yohana Bowen MD Unavailable Sabrina Willard NP Unavailable Encounter Details Date Type Department Care Team (Late st Contact Info) Description 09/19/2021 Orders Only [facility] Oncology [address] [facility] Advanced Medicine 7th [place] [address] [place] [address] Eren Cr MD [address] [facility] [address] [place] [address] Neuro-endocrine carcinoma (CMS/HCC) (HCC) (Primary Dx); Oral [...] on file Legal Sex Female 2:41 PM PCAT INSTRUCTOR Gender Identity Not on file Sexual [...] with simethicone-diphen hydramine-lidocain e (MAGIC MOUTHWASH) suspension [id number]:N euro-endocrine carcinoma (HCC),Oral mucositis Swish and swallow [...] 09/26/2021 documented in this encounter Care Teams Coremaker Relationship Specialty Start Date End Date Julio César Briseno MD PCP - General 10/01/16 Eren Cr MD Referring Physician Medical Oncology 11/25/18 Yohana Bowen MD Radiation Oncologist Radiation Oncology 11/25/18 Sabrina Willard NP [address] [facility] [address] [place] [address] Nurse Practitioner Medical Oncology 08/17/20 11/26/21 documented as of this encounter
--- OUTSIDE RECORDS SUMMARY | 2024-06-26 02:08 | XMS_ITS | Encounter Summary ---
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 [address] [facility] Advanced Medicine 7th [place] [address] Phone: tel: Referral ID Status Reason Start Date Expiration Date V isits Requested Visits Authorized [id number] Authorized 03/02/2019 10/06/2024 1 60 Encounter Details Date Type Department Care Team (Latest Contact Info) Description 09/18/2021 4:58 PM CDT - 09/18/2021 7:38 PM CDT Hospital Encounter [facility] Advanced Medicine ([facility]) [facility] [place] [address] Eren Cr MD [address] [facility] [address] [place] [address] Bone metastasis (CMS/HCC) (HCC) (Primary Dx); Neuro-endocrine [...] on file Legal Sex Female 2:41 PM TELECOMMUNICATIONS OPERATOR Gender Identity Not on file Sexual [...] the week, on weekends and holidays, call [phone] and ask to have the Crane Service Technician Physician paged for you. Saturday through Saturday, 8 AM to 4:30 PM, call [phone] [facility] Oncology Physician at [facility] and ask for a member of your doctor's team. Special Instructions: ?? Drink at least 64 ounces of decaffeinated liquid every day. ?? Take your temperature 2 times a day. ?? Bring your bottles of all medicines you are taking with you or a complete medication list to [facility]. Additional Information: ?? Diet: As tolerated. Avoid [...] capsuleIndications :supplement Take 1 tablet by mouth leather goods ii assembler before breakfast 07/04/2016 4 cholecalciferol (VITAMIN D-3) 2,000 unit capsule Take 1 capsule (2,000 Units total) by mouth daily 30 capsule 2 04/25/2019 3 cholestyramine (QUESTRAN) 4 gram packet Take 1 packet by mouth 3 (three) times a day with meals 270 packet 3 09/04/2019 2 clotrimazole-betam ethasone (LOTRISONE) cream Apply 1 Application topically daily as needed (rash) 4 coenzyme E29-jbtkekl E 100-5 mg-unit capsuleIndications :supplement Take 1 tablet by mouth leather goods ii assembler before breakfast 4 denosumab (XGEVA) 120 [...] dose).?? Avoid Jas's Wort, grapefruit products and [place] oranges while on treatment. placed on hold [...] 09/18/2021 7:17 PM CDT Patient arrived at [facility] for hydration fluids and magnesium replacement. Patient [...] this section may contain times in both TELECOMMUNICATIONS OPERATOR and CDT. Scheduled Medication Order 09/16/2021 [...] RN) documented in this encounter Care Teams Knuckle Bender Relationship Specialty Start Date End Date Julio César Briseno MD PCP - General 10/01/16 Eren Cr MD Referring Physician Medical Oncology 11/25/18 Yohana Bowen MD Radiation Oncologist Radiation Oncology 11/25/18 Sabrina Willard NP [address] [place] [address] Nurse Practitioner Medical Oncology 08/17/20 11/26/21 documented as of this encounter
--- OUTSIDE RECORDS SUMMARY | 2024-06-26 02:08 | XMS_ITS | Encounter Summary ---
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 Oncology [address] [facility] 7th [place] [address] [place] [phone] Eren Cr MD [address] [facility] [address] [place] [address] Neuroendocrine carcinoma (CMS/HCC) (HCC) (Primary Dx); Malignant [...] on file Legal Sex Female 2:41 PM PARK LANDSCAPE ARCHITECT Gender Identity Not on file Sexual [...] Body Mass Index 30.39 07/17/2021 2:15 PM PARK LANDSCAPE ARCHITECT documented in this encounter Progress Notes * [...] she also underwent right colectomy in [facility] OR by Dr. Greyson Reeves. [...] No rashes over exposed skin NEURO: A&Ox4, mill set up grossly intact by conversation, moving all extremities [...] was obtained. Prior to beginning the procedure, [place] Protocol was used to confirm the patient's [...] completed, removal can be scheduled by calling [facility] - [phone] [facility] - [phone] Electronically signed by: Soniya Flores ASSESSMENT AND [...] Stimulating Hormone 5.45(H) 0.30 - 4.20 mcIUnit/mL [facility] Blood 10/16/2021 9:59 AM CDT 10/16/2021 10:32 AM CDT Eren Cr MD LAB BLOOD ORDERABLES Final Re sult Performing Organization Address [facility] de Phone Number [facility] [place] [address] * (ABNORMAL) Magnesium (10/16/2021 9:59 AM CDT) Magnesium 1.0(L) 1.4 - 2.5 mg/dL [facility] Comment:Testing performed by : 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) Other malignant neoplasm of unspecified site documented in this encounter Orders Appointment Requests Count Last Ordered Date Fi rst Ordered Date ONCBCN CLINIC APPOINTMENT REQUEST 2 022 documented in this encounter Care Teams On Site Soil Evaluator Relationship Specialty Start Date End Date Julio César Briseno MD PCP - General 10/01/16 Eren Cr MD Referring Physician Medical Oncology 11/25/18 Yohana Bowen MD Radiation Oncologist Radiation Oncology 11/25/18 Sabrina Willard NP [address] [place] [address] Nurse Practitioner Medical Oncology 08/17/20 11/26/21 documented as of this encounter
--- OUTSIDE RECORDS SUMMARY | 2024-06-26 02:08 | XMS_ITS | Encounter Summary ---
Author Organization [facility] Address [address] [place] [address] Phone Care Team Providers Care Tread Builder Name Role Phone Julio César Briseno MD Primary Care Provider Eren Cr MD Unavailable [phone] Yohana Bowen MD Unavailable Sabrina Willard NP Unavailable [phone] Encounter Details Date Type Department Care Team (Late st Contact Info) Description 09/18/2021 Orders Only [facility] Oncology [address] [facility] 7th [place] [address] [place] [address] Roshni Gutierrez CMA Metastasis to [...] file Legal Sex Female 2:41 PM MAIL MESSENGER Gender Identity Not on file Sexual Orientation [...] liver documented in this encounter Care Teams Tread Builder Relationship Specialty Start Date End Date Julio César Briseno MD PCP - General 10/01/16 Eren Cr MD Referring Physician Medical Oncology 11/25/18 Yohana Bowen MD Radiation Oncologist Radiation Oncology 11/25/18 Sabrina Willard NP [address] [place] [address] Nurse Practitioner Medical Oncology 08/17/20 11/26/21 documented as of this encounter
--- OUTSIDE RECORDS SUMMARY | 2024-06-26 02:08 | XMS_ITS | Encounter Summary ---
Author Organization [facility] Address [address] [place] [address] Phone Care Team Providers Care Show Dog Trainer Name Role Phone Julio César Briseno MD Primary Care Provider Eren Cr MD Unavailable [phone] Yohana Bowen MD Unavailable Sabrina Willard NP Unavailable [phone] Encounter Details Date Type Department Care Team (Late st Contact Info) Description 08/21/2021 Orders Only [facility] Oncology [address] [place] [address] Eren Cr MD [address] [address] [place] [address] Neuro-endocrine carcinoma (CMS/HCC) (HCC) (Primary Dx) Social [...] on file Legal 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 Gender Identity Not on file Sexual Orientation Straight 02/19/2021 9: 29 AM CDT Occupation Industry Job Start Date Job End Date retired Not on file Not on file Not on file documented as of this encounter Plan of Treatment Not on file documented as of this encounter Results * (ABNORMAL) Magnesium (09/18/2021 1:21 PM CDT) Magnesium 1.2(L) 1.4 - 2.5 mg/dL [facility] Comment:Testing performed by : [facility], [address] [place] [phone] Blood 09/18/2021 1:21 PM CDT 09/18/2021 1:23 PM CDT us Eren Cr MD LAB BLOOD ORDERABLES Final Re sult [facility] Department [place] [address] documented in this encounter Visit Diagnoses Diagnosis Neuro-endocrine carcinoma (HCC)- Primary Other malignant neoplasm of unspecified site documented in this encounter Orders Appointment Requests Count Last Ordered Date Fi rst Ordered Date ONCBCN CLINIC APPOINTMENT REQUEST 1 022 ONCBCN LAB APPOINTMENT 1 09/18/2021 ONCBCN TAKE HOME STUDY DRUG APPT 1 09/19/19 22 documented in this encounter Care Teams Show Dog Trainer Relationship Specialty Start Date End Date Julio César Briseno MD PCP - General 10/01/16 Eren Cr MD Referring Physician Medical Oncology 11/25/18 Yohana Bowen MD Radiation Oncologist Radiation Oncology 11/25/18 Sabrina Willard NP [address] [place] [address] Nurse Practitioner Medical Oncology 08/17/20 11/26/21 documented as of this encounter
--- OUTSIDE RECORDS SUMMARY | 2024-06-26 02:08 | XMS_ITS | Encounter Summary ---
Author Organization [facility] Address [address] [place] [address] Phone Care Team Providers Care Vac Press Operator Name Role Phone Julio César Briseno MD Primary Care Provider Eren Cr MD Unavailable [phone] Yohana Bowen MD Unavailable Sabrina Willard NP Unavailable Encounter Details Date Type Department Care Team (Late st Contact Info) Description 08/18/2021 Orders Only 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 Gender Identity Not on file Sexual Orientation Straight 02/19/2021 9: 29 AM CDT Occupation Industry Job Start Date Job End Date retired Not on file Not on file Not on file documented as of this encounter Plan of Treatment Not on file documented as of this encounter Visit Diagnoses Not on filedocumented in this encounter Care Teams Vac Press Operator Relationship Specialty Start Date End Date Julio César Briseno MD PCP - General 10/01/16 Eren Cr MD Referring Physician Medical Oncology 11/25/18 Yohana Bowen MD Radiation Oncologist Radiation Oncology 11/25/18 Sabrina Willard NP [address] [place] [address] Nurse Practitioner Medical Oncology 08/17/20 11/26/21 documented as of this encounter
--- OUTSIDE RECORDS SUMMARY | 2024-06-26 02:08 | XMS_ITS | Encounter Summary ---
Author Organization [facility] Address [address] [place] [address] Phone Care Team Providers Care Commercial Relationship Manager Name Role Phone Julio César Briseno MD Primary Care Provider [phone] Eren Cr MD Unavailable [phone] Yohana Bowen MD Unavailable Sabrina Willard NP Unavailable [phone] Reason for Referral * Diagnostic Imaging (Routine) - Closed Specialty Diagnoses / Procedures Referred By Contac t Referred To Contact Radiology Diagnoses Neuro-endocrine carcinoma (HCC) Procedures IR Port Placement Chest > 5 Years Eren Cr MD [address] [place] [address] Phone: tel: fax: [address] [address] Referral ID Status Reason Start Date Expiration Date Visits Re quested Visits Authorized [id number] Closed 09/06/2021 10/06/2022 1 1 RVISOR SPRING UP Encounter Details Date Type Department Care Team (Late st Contact Info) Description 09/06/2021 Orders Only [facility] Oncology [facility] [facility] 7th [place] [address] [place] [address] Eren Cr MD [address] [facility] [address] [place] [address] Neuro-endocrine carcinoma (CMS/HCC) (HCC) (Primary Dx) Social [...] file Legal Sex Female 2:41 PM SUPERVISOR SPRING UP Gender Identity Not on file Sexual Orientation Straight 02/19/2021 9: 29 AM CDT Occupation Industry Job Start Date Job End Date retired Not on file Not on file Not on file documented as of this encounter Plan of Treatment Not on file documented as of this encounter Results * IR Port Placement Chest > 5 Years (09/14/2021 2:48 PM SUPERVISOR SPRING UP) Anatomical Region Laterality Modality Chest N/A Radio Fluoroscop y 09/14/2021 2:51 PM SUPERVISOR SPRING UP Impressions 09/14/2021 2:51 PM SUPERVISOR SPRING UP Successful chest wall port placement. PLAN: The catheter is ready for immediate use. Please note that a power injectable port was placed. When treatment is completed, removal can be scheduled by calling [facility] - [phone] [facility] - [phone] Electronically signed by: Soniya Richardson 09/14/2021 2:51 PM SUPERVISOR SPRING UP EXAMINATION: ??PORT PLACEMENT USING ULTRASOUND GUIDANCE (STD TECHNIQUE) HISTORY: 70-year-old female with neuroendocrine carcinoma referred for port placement for treatment. Provider PRESENCE: Virginia Pal was present from the beginning to the end of the procedure. ?? SEDATION: Conscious sedation was used for the procedure. TECHNIQUE: The risks, benefits and alternatives were discussed and informed consent was obtained. ??Prior to beginning the procedure, [place] Protocol was used to confirm the patient's [...] was obtained. Prior to beginning the procedure, [place] Protocol was used to confirm the patient's [...] completed, removal can be scheduled by calling [facility] - [phone] [facility] - [phone] Electronically signed by: Soniya Flores us Eren [...] documented as of this encounter Care Teams Commercial Relationship Manager Relationship Specialty Start Date End Date Julio César Briseno MD PCP - General 10/01/16 Eren Cr MD Referring Physician Medical Oncology 11/25/18 Yohana Bowen MD Radiation Oncologist Radiation Oncology 11/25/18 Sabrina Willard NP [address] [place] [address] Nurse Practitioner Medical Oncology 08/17/20 11/26/21 documented as of this encounter
--- OUTSIDE RECORDS SUMMARY | 2024-06-26 02:08 | XMS_ITS | Encounter Summary ---
Author Organization [facility] Address [address] [place] [address] Phone Care Team Providers Care Linecasting Machine Keyboard Operator Name Role Phone Julio César Briseno MD Primary Care Provider Eren Cr MD Unavailable Yohana Bowen MD Unavailable Sabrina Willard NP Unavailable Encounter Details Date Type Department Care Team (Late st Contact Info) Description 09/04/2021 Orders Only [facility] Oncology [address] [facility] Advanced Medicine 7th [place] [address] [place] [address] Eren Cr MD [address] [facility] [address] [place] [address] Neuroendocrine carcinoma (CMS/HCC) (HCC) (Primary Dx) Social [...] file Legal 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
--- OUTSIDE RECORDS SUMMARY | 2024-06-26 02:08 | XMS_ITS | Encounter Summary ---
Author Organization [facility] Address [address] [place] [address] Phone Care Team Providers Care Speeder Worker Name Role Phone Julio César Briseno MD Primary Care Provider [phone] Eren Cr MD Unavailable [phone] Yohana Bowen MD Unavailable Sabrina Willard NP Unavailable [phone] Reason for Visit * Episode Based Medications (Routine) - Closed Specialty Diagnoses / Procedures Referred By Contac t Referred To Contact Diagnoses Neuro-endocrine carcinoma (HCC) Procedures study [id number] phase III cabozantinib Eren Cr MD [address] [place] [address] Phone: tel: fax: [facility] at [facility] [address] [facility] 7th [place] [address] Phone: tel: Referral ID Status Reason Start Date Expiration Date Visits Re quested Visits Authorized [id number] Closed 06/21/2021 06/26/2024 1 99 Encounter Details Date Type Department Care Team (Latest Contact Info) Description 09/18/2021 4:00 PM CDT [facility] Pick-Up/CTRU Lighting Adviser [facility] Oncology [address] 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 Gender Identity Not on file Sexual [...] Date First Ordered Date [id number] cabozantinib/pl acebo (2018-02-/[id number]) tablet 60 mg 1 09/18/2021 Appointment Requests Count Last Ordered Date Fi rst Ordered Date ONCBCN TAKE HOME STUDY DRUG APPT 1 09/19/19 22 documented in this encounter Care Teams Speeder Worker Relationship Specialty Start Date End Date Juloi César Briseno MD PCP - General 10/01/16 Eren Cr MD Referring Physician Medical Oncology 11/25/18 Yohana Bowen MD Radiation Oncologist Radiation Oncology 11/25/18 Sabrina Willard NP [address] [place] [address] Nurse Practitioner Medical Oncology 08/17/20 11/26/21 documented as of this encounter
--- OUTSIDE RECORDS SUMMARY | 2024-06-26 02:08 | XMS_ITS | Encounter Summary ---
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) Procedures [place] DENOSUMAB INJECTION DENOSUMAB (XGEVA) Eren Cr MD [address] [place] [address] Phone: tel: fax: [facility] [address] [facility] Advanced Medicine 7th [place] [address] Phone: tel: Referral ID Status Reason Start Date Expiration Date V isits Requested Visits Authorized [id number] Authorized 03/02/2019 10/06/2024 1 60 Encounter Details Date Type Department Care Team (Latest Contact Info) Description 09/05/2021 1:13 PM RESIDENTIAL DIRECTOR - 09/05/2021 3:56 PM RESIDENTIAL DIRECTOR Hospital Encounter [facility] Advanced Medicine ([facility]) [address] [place] [address] Eren Cr MD [address] [facility] [address] [place] [address] Bone metastasis (CMS/HCC) (HCC) (Primary Dx); Neuro-endocrine [...] file Legal Sex Female 2:41 PM RESIDENTIAL DIRECTOR Gender Identity Not on file Sexual Orientation Straight 02/19/2021 9: 29 AM CDT Occupation Industry Job Start Date Job End Date retired Not on file Not on file Not on file documented as of this encounter Last Filed Vital Signs Vital Sign Reading Time Taken Comments Blood Pressure 151/70 09/05/2021 1:19 PM RESIDENTIAL DIRECTOR Pulse 81 09/05/2021 1:19 PM RESIDENTIAL DIRECTOR Temperature 36.3 ??C (97.3 ??F) 09/05/2021 1:19 PM CS T Respiratory Rate 18 09/05/2021 1:19 PM RESIDENTIAL DIRECTOR Oxygen Saturation 98% 09/05/2021 1:19 PM RESIDENTIAL DIRECTOR Inhaled Oxygen Concentration - - Weight [...] Callie Robles RN - 09/05/2021 2:51 PM RESIDENTIAL DIRECTOR .After 4:30 PM during the week, on weekends and holidays, call [phone] and ask to have the De Alcoholizer Physician paged for you. Saturday through Saturday, 8 AM to 4:30 PM, call [phone] [facility] Oncology Physician at [facility] and ask for a member [...] any non-prescription medicine without your doctor's approval DENTIAL DIRECTOR documented in this encounter Medications at [...] capsuleIndications :supplement Take 1 tablet by mouth leveler helper before breakfast 07/04/2016 4 cholecalciferol (VITAMIN D-3) 2,000 unit capsule Take 1 capsule (2,000 Units total) by mouth daily 30 capsule 2 04/25/2019 3 cholestyramine (QUESTRAN) 4 gram packet Take 1 packet by mouth 3 (three) times a day with meals 270 packet 3 09/04/2019 2 clotrimazole-betam ethasone (LOTRISONE) cream Apply 1 Application topically daily as needed (rash) 4 coenzyme D21-tzdnarh E 100-5 mg-unit capsuleIndications :supplement Take 1 tablet by mouth leveler helper before breakfast 4 denosumab (XGEVA) 120 mg/1.7 [...] and 1 hour after each dose).?? Avoid Hinton's Wort, grapefruit products and [place] oranges while on treatment. placed on hold [...] 09/05/2021 3:56 PM CST Pt presents to [facility] for 1 liter NS infusion. Tolerated well. Difficult IV stick (x4 today and x7 before). [place] [facility] notified and states they will get pt set up for port placement. Pt agreeable with plan. Pt discharged in stable, ambulatory condition with daughter. DENTIAL DIRECTOR documented in this encounter Plan of [...] carcinoma (HCC) New Bag 09/05/2021 1:45 PM RESIDENTIAL DIRECTOR 1,000 mL 500 mL/hr documented in this encounter Active and Recently Administered Medications Times are shown in RESIDENTIAL DIRECTOR. Scheduled Medication Order 09/03/2021 09/04/2021 09/05/2021 sodium chloride 0.9% bolus 1,000 mL (COMPLETED) 1,000 mL, intravenous, at 500 mL/hr, Administer over 2 Hours, Once, On Sat09/05/21 at 1355, For 1 dose 1345 (New Bag - Prov ider: Callie Robles RN)1546 (Stopped - Provider: Callie Robles RN) documented in this encounter Orders [...] documented as of this encounter Care Teams Hot Strip Mill Supervisor Relationship Specialty Start Date End Date Julio César Briseno MD PCP - General 10/01/16 Eren Cr MD Referring Physician Medical Oncology 11/25/18 Yohana Bowen MD Radiation Oncologist Radiation Oncology 11/25/18 Sabrina Willard NP [address] [place] [address] Nurse Practitioner Medical Oncology 08/17/20 11/26/21 documented as of this encounter
--- OUTSIDE RECORDS SUMMARY | 2024-06-26 02:08 | XMS_ITS | Encounter Summary ---
Author Organization [facility] Address [address] [place] [address] Phone Care Team Providers Care Associate Theatre Professor Name Role Phone Julio César Briseno MD Primary Care Provider Eren Cr MD Unavailable [phone] Yohana Bowen MD Unavailable Sabrina Willard NP Unavailable [phone] Reason for Visit * Reason Onset Date Comments Scheduling Appointments 09/05/2021 Encounter Details Date Type Department Care Team (Late st Contact Info) Description 09/05/2021 Telephone [facility] Oncology [address] [facility] 7th [place] [address] Kyle Maharaj RMA Scheduling Appointments [...] file Legal Sex Female 2:41 PM TRANSPORTATION SOLUTIONS MANAGER Gender Identity Not on file Sexual Orientation Straight 02/19/2021 9: 29 AM CDT Occupation Industry Job Start Date Job End Date retired Not on file Not on file Not on file documented as of this encounter Miscellaneous Notes * Telephone Encounter - Kyle Maharaj RMA - 09/05/2021 10:01 AM TRANSPORTATION SOLUTIONS MANAGER Spoke with the patient regarding gamal. Update, pt. Was given time and directions to the CCC. SPORTATION SOLUTIONS MANAGER * Telephone Encounter - Kyle Maharaj RMA - 09/05/2021 10:00 AM TRANSPORTATION SOLUTIONS MANAGER ----- Message from Fariha Heredia sent at 09/05/2021 8:49 AM TRANSPORTATION SOLUTIONS MANAGER ----- Regarding: RE: appt. req. Yes, she needs to come for IVF today if there is availablility for it please. Thank you, fariha ----- Message ----- From: Kyle Maharaj RMA Sent: 09/05/2021 8:40 AM TRANSPORTATION SOLUTIONS MANAGER To: Meek Cr Clinical Support Subject: appt. req. Good morning There is a req. To gamal the patient for an Infusion for (today), the appt. Req. Was entered in at [id number]... does the patient still need the infusion (today)? SPORTATION SOLUTIONS MANAGER documented in this encounter Plan of Treatment Not on file documented as of this encounter Visit Diagnoses Not on filedocumented in this encounter Additional Health Concerns Infection Onset Date Last Indicated Resolved Time Exposure, COVID-19 Comment:Added automatically based on COVID19 lab answers indicating exposure risk 09/04/2021 09/04/2021 09/14/2021 3:[address] documented as of this encounter Care Teams Associate Theatre Professor Relationship Specialty Start Date End Date Julio César Briseno MD PCP - General 10/01/16 Eren Cr MD Referring Physician Medical Oncology 11/25/18 Yohana Bowen MD Radiation Oncologist Radiation Oncology 11/25/18 Sabrina Willard NP [address] [place] [address] Nurse Practitioner Medical Oncology 08/17/20 11/26/21 documented as of this encounter
--- OUTSIDE RECORDS SUMMARY | 2024-06-26 02:08 | XMS_ITS | Encounter Summary ---
Author Organization [facility] Address [address] [place] [address] Phone Care Team Providers Care Director Embalmer Name Role Phone Julio César Briseno MD Primary Care Provider Eren Cr MD Unavailable [phone] Yohana Bowen MD Unavailable Sabrina Willard NP Unavailable [phone] Encounter Details Date Type Department Care Team (Late st Contact Info) Description 09/12/2021 Orders Only [facility] Oncology [address] [facility] 7th [place] [address] [place] [address] Elaine Coy Bone metastasis (CMS/HCC) [...] on file Legal Sex Female 2:41 PM ATOMIC WELDER Gender Identity Not on file Sexual [...] documented as of this encounter Care Teams Director Embalmer Relationship Specialty Start Date End Date Julio César Briseno MD PCP - General 10/01/16 Eren Cr MD Referring Physician Medical Oncology 11/25/18 Yohana Bowen MD Radiation Oncologist Radiation Oncology 11/25/18 Sabrina Willard NP [address] [place] [address] Nurse Practitioner Medical Oncology 08/17/20 11/26/21 documented as of this encounter
--- OUTSIDE RECORDS SUMMARY | 2024-06-26 02:08 | XMS_ITS | Encounter Summary ---
Author Organization [facility] Address [address] [place] [address] Phone Care Team Providers Care Director Of Business Applications Name Role Phone Julio César Briseno MD Primary Care Provider Eren Cr MD Unavailable Yohana Bowen MD Unavailable Sabrina Willard NP Unavailable Encounter Details Date Type Department Care Team (Late st Contact Info) Description 08/21/2021 Orders Only [facility] Oncology [address] [facility] 7th [place] [address] [place] [address] Eren Cr MD [address] [facility] [address] [place] [address] Social History Tobacco Use Types Packs/Day Years [...] on file Legal Sex Female 2:41 PM CORE FITTER Gender Identity Not on file Sexual Orientation Straight 02/19/2021 9: 29 AM CDT Occupation Industry Job Start Date Job End Date retired Not on file Not on file Not on file documented as of this encounter Plan of Treatment Not on file documented as of this encounter Visit Diagnoses Not on filedocumented in this encounter Care Teams Director Of Business Applications Relationship Specialty Start Date End Date Julio César Briseno MD PCP - General 10/01/16 Eren Cr MD Referring Physician Medical Oncology 11/25/18 Yohana Bowen MD Radiation Oncologist Radiation Oncology 11/25/18 Sabrina Willard NP [address] [place] [address] Nurse Practitioner Medical Oncology 08/17/20 11/26/21 documented as of this encounter
--- OUTSIDE RECORDS SUMMARY | 2024-06-26 02:08 | XMS_ITS | Encounter Summary ---
Author Organization [facility] Address [address] [place] [address] Phone Care Team Providers Care Adoption Agent Name Role Phone Julio César Briseno MD Primary Care Provider [phone] Eren Cr MD Unavailable [phone] Yohana Bowen MD Unavailable Sabrina Willard NP Unavailable [phone] Reason for Visit * Episode Based Medications (Routine) - Closed Specialty Diagnoses / Procedures Referred By Contac t Referred To Contact Diagnoses Neuro-endocrine carcinoma (HCC) Procedures study [id number] phase III cabozantinib Eren Cr MD [address] [facility] [address] [place] [address] Phone: tel: fax: [facility] [address] [facility] Advanced [facility] 7th [place] [address] Phone: tel: Referral ID Status Reason Start Date Expiration Date Visits Re quested Visits Authorized [id number] Closed 06/21/2021 06/26/2024 1 99 Encounter Details Date Type Department Care Team (Late st Contact Info) Description 09/04/2021 10:30 AM CLOTH FEEDER Lab [facility] Oncology [address] [facility] 7th [place] [address] [place] [address] Neuro-endocrine carcinoma (CMS/HCC) (HCC) Social History Tobacco [...] file Legal Sex Female 2:41 PM CLOTH FEEDER Gender Identity Not on file Sexual Orientation Straight 02/19/2021 9: 29 AM CDT Occupation Industry Job Start Date Job End Date retired Not on file Not on file Not on file documented as of this encounter Nursing Notes * Felicity Edmond RN - 09/04/2021 10:30 AM CST Nasopharyngeal swab obtained for respiratory pathogen H FEEDER documented in this encounter Plan of Treatment Not on file documented as of this encounter Procedures Procedure Name Priority Date/Time Associated Diagnosis Comments RESPIRATORY PATHOGEN PANEL STAT 09/04/2021 2:10 PM CLOTH FEEDER Neuro-endocrine carcinoma (CMS/HCC) (HCC) EGFR STAT 09/04/2021 11:00 AM CLOTH FEEDER Neuro-endocrine carcinoma (CMS/HCC) (HCC) DIFFERENTIAL AUTO STAT 09/04/2021 11: 00 AM CLOTH FEEDER Neuro-endocrine carcinoma (CMS/HCC) (HCC) CBC WITH AUTO DIFFERENTIAL STAT 09/04/2021 11:00 AM CLOTH FEEDER Neuro-endocrine carcinoma (CMS/HCC) (HCC) PHOSPHORUS STAT 09/04/2021 11:00 AM CLOTH FEEDER Neuro-endocrine carcinoma (CMS/HCC) (HCC) MAGNESIUM STAT 09/04/2021 11:00 AM CLOTH FEEDER Neuro-endocrine carcinoma (CMS/HCC) (HCC) COMPREHENSIVE METABOLIC PANEL STAT 09/04/2021 11:00 AM CLOTH FEEDER Neuro-endocrine carcinoma (CMS/HCC) (HCC) documented in this encounter Results * Respiratory pathogen panel Nasopharyngeal (09/04/2021 2:10 PM CLOTH FEEDER) Pathologist [facility] Influenza A RNA Not Detected Not Detected [facility] Influenza B RNA Not Detected Not Detected [facility] RSV RNA Not Detected Not Detected [facility] COVID-19 RNA Not Detected Not Detected [facility] Coronavirus 229E RNA Not Detected Not Detected [facility] Coronavirus HKU1 RNA Not Detected Not Detected [facility] Coronavirus NL63 RNA Not Detected Not Detected [facility] Coronavirus OC43 RNA Not Detected Not Detected [facility] Adenovirus DNA Not Detected Not Detected [facility] Metapneumovirus RNA Not Detected Not Detected [facility] Rhinovirus/Enterov irus RNA Not Detected Not Detected [facility] Parainfluenza 1 RNA Not Detected Not Detected [facility] Parainfluenza 2 RNA Not Detected Not Detected [facility] Parainfluenza 3 RNA Not Detected Not Detected [facility] Parainfluenza 4 RNA Not Detected Not Detected [facility] B. pertussis DNA Not Detected Not Detected [facility] B. parapertussis DNA Not Detected Not Detected [facility] C. pneumoniae DNA Not Detected Not Detected [facility] M. pneumoniae DNA Not Detected Not Detected [facility] Employeed in healthcare? No [facility] status? No [facility] Group care resident? No [facility] Hospitalized? No [facility] Is patient in ICU? No [facility] Symptomatic as defined by CDC? Yes [facility] Nasopharyngeal 09/04/2021 2: 10 PM CLOTH FEEDER 09/04/2021 3:00 PM CLOTH FEEDER Narrative [facility] - 09/04/2021 4:05 PM CLOTH FEEDER Date of Symptom Onset->09/02/21 Reason for testing?->Known exposure to confirmed or suspected COVID-19 case Known exposure to confirmed or suspected COVID-19 case?->No Surveillance testing for transplant patient?->No us Eren Cr MD LAB MICROBIOLOGY - GENERAL OR DERABLES Final Result [facility] [place] [address] * (ABNORMAL) eGFR (09/04/2021 11:00 AM CLOTH FEEDER) eGFR 35(L) 90 - 130 mL/min/1. 73 m2 [facility] Comment: Interpretive Data Reference Interval Normal [...] was last reviewed 2021. Testing performed by: [facility], [address] [place] [phone] Blood 09/04/2021 11:0 0 AM CLOTH FEEDER 09/04/2021 11:01 AM CLOTH FEEDER us Eren Cr MD LAB BLOOD ORDERABLES Final Re sult [facility] Department [place] [address] * (ABNORMAL) Differential, auto (09/04/2021 11:00 AM CLOTH FEEDER) Neutrophil abs 2.5 1.8 - 6.6 K/cumm [facility] Comment:Testing performed by : [facility], [address] [place] [phone] Lymphocyte abs 1.0(L) 1.2 - 3.3 K/cumm [facility]ER BJ Comment:Testing performed by : [facility], [address] [place] [phone] Monocyte abs 0.3 0.2 - 1.2 K/cumm [facility]ER BJ Comment:Testing performed by : [facility], [address] [place] [phone] Eosinophil abs 0.1 0.0 - 0.5 K/cumm [facility]J Comment:Testing performed by : [facility], [address] [place] [phone] Basophil abs 0.0 0.0 - 0.2 K/cumm [facility]J Comment:Testing performed by : [facility], [address] [place] [phone] Neutrophil pct 63.3 % [facility] Comment: Interpretive Data Percent cell count reference ranges are not reported, since discordance with absolute values may lead to misinterpretation of CBC data. Current Interpretive Data was last revised on 2017. Testing performed by: [facility], [address] [place] [phone] Lymphocyte pct 25.0 % [facility] Comment: Interpretive Data Percent cell count reference ranges are not reported, since discordance with absolute values may lead to misinterpretation of CBC data. Current Interpretive Data was last revised on 2017. Testing performed by: [facility], [address] [place] [phone] Monocyte pct 7.9 % [facility] Comment:Testing performed by : [facility], [address] [place] [phone] Eosinophil pct 3.1 % CERMINNIE BJ Comment:Testing performed by : [facility], [address] [place] [phone] Basophil pct 0.7 % [facility]J Comment:Testing performed by : [facility], [address] [place] [phone] Blood 09/04/2021 11:0 0 AM CLOTH FEEDER 09/04/2021 11:01 AM CLOTH FEEDER us Eren Cr MD LAB BLOOD ORDERABLES Final Re sult JASON BLACK [facility] [place] [address] * (ABNORMAL) CBC with auto differential (09/04/2021 11:00 AM CLOTH FEEDER) WBC 4.0 3.8 - 9.8 K/cumm JASON BLACK Comment:Testing performed by : [facility], [address] [place] [phone] Hgb 15.5(H) 12.1 - 15.1 g/dL CERMINNIE BLACK Comment:Testing performed by : [facility], [address] [place] [phone] Hct 44.2 36.1 - 44.3 % JASON BLACK Comment:Testing performed by : [address] [phone] Plt 101(L) 140 - 440 K/cumm JASON BLACK Comment:Testing performed by : [facility], [address] [place] [phone] MPV 8.4 6.8 - 10.4 fL JASON BJ Comment:Testing performed by : [address] [phone] RBC 5.06(H) 3.90 - 5.00 M/cumm JASON BLACK Comment:Testing performed by : [address] [address] MCV 87.5 80.0 - 97.6 fL CERMINNIE BLACK Comment:Testing performed by : [facility], [address] [place] [phone] MCH 30.6 26.7 - 33.7 pg JASON BLACK Comment:Testing performed by : [facility], [address] [place] [phone] MCHC 35.0 32.7 - 35.5 g/dL JASON BLACK Comment:Testing performed by : [facility], [address] [place] [phone] RDW CV 14.6 11.8 - 14.6 % JASON BLACK Comment:Testing performed by : [facility], [address] [place] [phone] NRBC abs 0.00 0.00 - 0.01 K/cumm JASON BLACK Comment:Testing performed by : [facility], [address] [place] [phone] Blood 09/04/2021 11:0 0 AM CLOTH FEEDER 09/04/2021 11:01 AM CLOTH FEEDER us Eren Cr MD LAB BLOOD ORDERABLES Final Re sult JASON BLACK [facility] Department of Laboratories [place], [place] [id number] * (ABNORMAL) Comprehensive metabolic panel (09/04/2021 11:00 AM CLOTH FEEDER) Sodium 135 135 - 145 mmol/L JASON BLACK Comment:Testing performed by : [facility], [address] [place] [phone] Potassium, pl 4.3 3.3 - 4.9 mmol/L JASON BLACK Comment:Testing performed by : [facility], [address] [place] [phone] Chloride 99 97 - 110 mmol/L JASON BLACK Comment:Testing performed by : [facility], [address] [place] [phone] CO2 25 22 - 32 mmol/L JASON BLACK Comment:Testing performed by : [facility], [address] [place] [phone] Anion gap 11 2 - 15 mmol/L [facility] BJ Comment:Testing performed by : [facility], [address] [place] [phone] BUN 19 8 - 25 mg/dL [facility]ER BJ Comment:Testing performed by : [facility], [address] [place] [phone] Creatinine 1.55(H) 0.60 - 1.10 mg/dL [facility] BJ Comment:Testing performed by : [facility], [address] [place] [phone] Glucose 121 70 - 199 mg/dL CERNER [...] was last revised 2017. Testing performed by: [facility], [address] [place] [phone] Calcium 10.9(H) 8.5 - 10.3 mg/dL [facility]ER BJ Comment:Testing performed by : [address] [phone] Bilirubin, total 1.1 0.1 - 1.2 mg/dL [facility] BJ Comment:Testing performed by : [facility], [address] [place] [phone] Protein, pl 7.2 6.5 - 8.5 g/dL [facility] BJ Comment:Testing performed by : [address] [address] Albumin 4.4 3.5 - 5.0 g/dL [facility] BJ Comment:Testing performed by : [address] [address] Alk phos 111 40 - 130 Units/L [facility] BJ Comment:Testing performed by : [facility], [address] [place] [phone] ALT 45 7 - 45 Units/L [facility] Comment:Testing performed by : [facility], [address] [place] [phone] AST 60(H) 10 - 45 Units/L [facility] Comment:Testing performed by : [facility], [address] [place] [phone] Blood 09/04/2021 11:0 0 AM CLOTH FEEDER 09/04/2021 11:01 AM CLOTH FEEDER Result [facility] Eren Cr MD LAB BLOOD ORDERABLES Final Re sult Performing Organization Address [facility] Co de Phone Number [facility] [place] [address] * Magnesium (09/04/2021 11:00 AM CLOTH FEEDER) Magnesium 1.5 1.4 - 2.5 mg/dL [facility] Comment:Testing performed by : [facility], [address] [place] [phone] Blood 09/04/2021 11:0 0 AM CLOTH FEEDER 09/04/2021 11:01 AM CLOTH FEEDER Result [facility] Eren Cr MD LAB BLOOD ORDERABLES Final Re sult Performing Organization Address [facility] de Phone Number [facility] [place] [address] * Phosphorus (09/04/2021 11:00 AM CLOTH FEEDER) Phosphorus, pl 2.7 2.3 - 4.5 mg/dL [facility] Comment:Testing performed by : [facility], [address] [place] [phone] Blood 09/04/2021 11:0 0 AM CLOTH FEEDER 09/04/2021 11:01 AM CLOTH FEEDER Result [facility] Eren Cr MD LAB BLOOD ORDERABLES Final Re sult Performing Organization Address [facility]/ZIP Co de Phone Number [facility] [place] [address] documented in this encounter Visit Diagnoses Diagnosis Neuro-endocrine carcinoma (HCC) Other malignant neoplasm of unspecified site documented in this encounter Orders Lab Orders Without Results Count Last Ordered D ate First Ordered Date ONCBCN STUDY LAB 1 1 09/04/2021 Appointment Requests Count Last Ordered Date Fi rst Ordered Date ONCBCN LAB APPOINTMENT 1 09/04/2021 documented in this encounter Care Teams Adoption Agent Relationship Specialty Start Date End Date Julio César Briseno MD PCP - General 10/01/16 Eren Cr MD Referring Physician Medical Oncology 11/25/18 Yohana Bowen MD Radiation Oncologist Radiation Oncology 11/25/18 Sabrina Willard NP [address] [place] [address] Nurse Practitioner Medical Oncology 08/17/20 11/26/21 documented as of this encounter
--- OUTSIDE RECORDS SUMMARY | 2024-06-26 02:08 | XMS_ITS | Encounter Summary ---
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) Procedures NE OCTREOTIDE INJECTION, DEPOT Octreotide 28 Day Cycles - Carcinoid Eren Cr MD [address] [facility] [address] [place] [address] Phone: tel: fax: [facility] [address] [address] Phone: tel: fax: Referral ID Status Reason Start Date Expiration Date V isits Requested Visits Authorized [id number] Authorized 11/28/2017 02/05/2025 1 150 Encounter Details Date Type Department Care Team (Late st Contact Info) Description 08/21/2021 11:00 AM CODE OFFICIAL Infusion [facility] Oncology [address] [facility] 7th [place] [address] Neuroendocrine carcinoma (CMS/HCC) (HCC); Malignant neoplasm metastatic [...] on file Legal Sex Female 2:41 PM CODE OFFICIAL Gender Identity Not on file Sexual Orientation Straight 02/19/2021 9: 29 AM CDT Occupation Industry Job Start Date Job End Date retired Not on file Not on file Not on file documented as of this encounter Nursing Notes * Xochitl Jimenez RN - 08/21/2021 11:00 AM CST Oncology Nursing Note [facility] ON[facility] [...] Ambulatory Accompanied by: Family Discharged To: Home OFFICIAL documented in this encounter Plan of Treatment [...] (HCC),Neuroendocrine carcinoma (HCC) Given 08/21/2021 4:54 PM CODE OFFICIAL 30 mg Right Dorsogluteal/Butt ock documented in this encounter Orders Appointment Requests Count Last Ordered Date Fi rst Ordered Date ONCBCN INJECTION APPOINTMENT REQUEST 1 08/08 documented in this encounter Care Teams Matting Press Tender Relationship Specialty Start Date End Date Julio César Briseno MD PCP - General 10/01/16 Eren Cr MD Referring Physician Medical Oncology 11/25/18 Yohana Bowen MD Radiation Oncologist Radiation Oncology 11/25/18 Sabrina Willard NP [address] [place] [address] Nurse Practitioner Medical Oncology 08/17/20 11/26/21 documented as of this encounter
--- OUTSIDE RECORDS SUMMARY | 2024-06-26 02:08 | XMS_ITS | Encounter Summary ---
Author Organization [facility] Address [address] [place] [address] Phone Care Team Providers Care Business Loan Processor Name Role Phone Julio César Briseno MD Primary Care Provider [phone] Eren Cr MD Unavailable [phone] Yohana Bowen MD Unavailable Sabrina Willard NP Unavailable [phone] Reason for Visit * Episode Based Medications (Routine) - Closed Specialty Diagnoses / Procedures Referred By Contac t Referred To Contact Diagnoses Neuro-endocrine carcinoma (HCC) Procedures study [id number] phase III cabozantinib Eren Cr MD [address] [place] [address] Phone: tel: fax: [facility] and [facility] [address] [facility] Advanced [facility] 7th [place] [address] Phone: tel: Referral ID Status Reason Start Date Expiration Date Visits Re quested Visits Authorized [id number] Closed 06/21/2021 06/26/2024 1 99 Encounter Details Date Type Department Care Team (Latest Contact Info) Description 08/21/2021 10:45 AM BREAD RACKER Research Med Pick-Up/CTRU Cash Manager [facility] Oncology [address] [facility] 7th [place] [address] Neuro-endocrine carcinoma (CMS/HCC) (HCC) (Primary Dx) Social [...] on file Legal Sex Female 2:41 PM BREAD RACKER Gender Identity Not on file Sexual Orientation [...] Date First Ordered Date [id number] cabozantinib/pl acebo (2018-02-/[id number]) tablet 60 mg 1 08/21/2021 Appointment Requests Count Last Ordered Date Fi rst Ordered Date ONCBCN TAKE HOME STUDY DRUG APPT 1 08/21/19 22 documented in this encounter Care Teams Business Loan Processor Relationship Specialty Start Date End Date Julio César Briseno MD PCP - General 10/01/16 Eren Cr MD Referring Physician Medical Oncology 11/25/18 Yohana Bowen MD Radiation Oncologist Radiation Oncology 11/25/18 Sabrina Willard NP [address] [place] [address] Nurse Practitioner Medical Oncology 08/17/20 11/26/21 documented as of this encounter
--- OUTSIDE RECORDS SUMMARY | 2024-06-26 02:08 | XMS_ITS | Encounter Summary ---
Author Organization [facility] Address [address] [place] [address] Phone Care Team Providers Care Senior Business Development Analyst Name Role Phone Julio César Briseno MD Primary Care Provider [phone] Eren Cr MD Unavailable [phone] Yohana Bowen MD Unavailable Sabrina Willard NP Unavailable [phone] Encounter Details Date Type Department Care Team (Late st Contact Info) Description 09/04/2021 Orders Only [facility] Oncology [address] [facility] Advanced Medicine 7th [place] [address] [place] [address] Roshni Gutierrez CMA Neuro-endocrine carcinoma [...] file Legal Sex Female 2:41 PM HAND ALMOND BLANCHER Gender Identity Not on file Sexual Orientation Straight 02/19/2021 9: 29 AM CDT Occupation Industry Job Start Date Job End Date retired Not on file Not on file Not on file documented as of this encounter Plan of Treatment Not on file documented as of this encounter Results * Respiratory pathogen panel Nasopharyngeal (09/04/2021 2:10 PM HAND ALMOND BLANCHER) Pathologist [facility] Influenza A RNA Not Detected Not Detected [facility] Influenza B RNA Not Detected Not Detected [facility] RSV RNA Not Detected Not Detected [facility] COVID-19 RNA Not Detected Not Detected [facility] Coronavirus 229E RNA Not Detected Not Detected [facility] Coronavirus HKU1 RNA Not Detected Not Detected [facility] Coronavirus NL63 RNA Not Detected Not Detected [facility] Coronavirus OC43 RNA Not Detected Not Detected [facility] Adenovirus DNA Not Detected Not Detected [facility] Metapneumovirus RNA Not Detected Not Detected [facility] Rhinovirus/Enterov irus RNA Not Detected Not Detected [facility] Parainfluenza 1 RNA Not Detected Not Detected [facility] Parainfluenza 2 RNA Not Detected Not Detected [facility] Parainfluenza 3 RNA Not Detected Not Detected [facility] Parainfluenza 4 RNA Not Detected Not Detected [facility] B. pertussis DNA Not Detected Not Detected [facility] B. parapertussis DNA Not Detected Not Detected [facility] C. pneumoniae DNA Not Detected Not Detected [facility] M. pneumoniae DNA Not Detected Not Detected [facility] Employeed in healthcare? No [facility] status? No [facility] Group care resident? No [facility] Hospitalized? No [facility] Is patient in ICU? No [facility] Symptomatic as defined by CDC? Yes [facility] Nasopharyngeal 09/04/2021 2: 10 PM HAND ALMOND BLANCHER 09/04/2021 3:00 PM HAND ALMOND BLANCHER Narrative [facility] - 09/04/2021 4:05 PM HAND ALMOND BLANCHER Date of Symptom Onset->09/02/21 Reason for testing?->Known exposure to confirmed or suspected COVID-19 case Known exposure to confirmed or suspected COVID-19 case?->No Surveillance testing for transplant patient?->No Eren Cr MD LAB MICROBIOLOGY - GENERAL OR DERABLES Final Result JASON BLACK One [facility] [place] [address] documented in this encounter Visit Diagnoses Diagnosis [...] COVID: Suspected 09/04/2021 09/04/2021 09/04/2021 4:06 PM HAND ALMOND BLANCHER documented as of this encounter Care Teams Senior Business Development Analyst Relationship Specialty Start Date End Date Julio César Briseno MD PCP - General 10/01/16 Eren Cr MD Referring Physician Medical Oncology 11/25/18 Yohana Bowen MD Radiation Oncologist Radiation Oncology 11/25/18 Sabrina Willard NP [address] [place] [address] Nurse Practitioner Medical Oncology 08/17/20 11/26/21 documented as of this encounter
--- OUTSIDE RECORDS SUMMARY | 2024-06-26 02:08 | XMS_ITS | Encounter Summary ---
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 Eren Cr MD [address] [facility] [address] [place] [address] Phone: tel: fax: [facility] [address] [facility] Advanced Medicine 7th [place] [address] Phone: tel: Referral ID Status Reason Start Date Expiration Date Visits Re quested Visits Authorized [id number] Closed 06/21/2021 06/26/2024 1 99 Encounter Details Date Type Department Care Team (Late st Contact Info) Description 08/21/2021 9:15 AM WATCH CRYSTAL GRINDER Lab [facility] Oncology [address] [facility] 7th [place] [address] [place] [id number] Neuro-endocrine carcinoma (CMS/HCC) (HCC); Neuroendocrine carcinoma (CMS/HCC) [...] on file Legal Sex Female 2:41 PM WATCH CRYSTAL GRINDER Gender Identity Not on file Sexual Orientation Straight 02/19/2021 9: 29 AM CDT Occupation Industry Job Start Date Job End Date retired Not on file Not on file Not on file documented as of this encounter Plan of Treatment Not on file documented as of this encounter Procedures Procedure Name Priority Date/Time Associated Diagnosis Comments CHROMOGRANIN A Routine 08/21/2021 9:22 AM WATCH CRYSTAL GRINDER 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) EGFR STAT 08/21/2021 9:18 AM WATCH CRYSTAL GRINDER Neuro-endocrine carcinoma (CMS/HCC) (HCC) DIFFERENTIAL AUTO STAT 08/21/2021 9:1 8 AM WATCH CRYSTAL GRINDER Neuro-endocrine carcinoma (CMS/HCC) (HCC) CBC WITH AUTO DIFFERENTIAL STAT 08/21/2021 9:18 AM WATCH CRYSTAL GRINDER Neuro-endocrine carcinoma (CMS/HCC) (HCC) VITAMIN D 25 HYDROXY Routine 08/21/2021 9:18 AM WATCH CRYSTAL GRINDER 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) PHOSPHORUS STAT 08/21/2021 9:18 AM WATCH CRYSTAL GRINDER Neuro-endocrine carcinoma (CMS/HCC) (HCC) MAGNESIUM STAT 08/21/2021 9:18 AM WATCH CRYSTAL GRINDER Neuro-endocrine carcinoma (CMS/HCC) (HCC) LIPID PANEL Routine 08/21/2021 9:18 AM WATCH CRYSTAL GRINDER 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) COMPREHENSIVE METABOLIC PANEL STAT 08/21/2021 9:18 AM WATCH CRYSTAL GRINDER Neuro-endocrine carcinoma (CMS/HCC) (HCC) documented in this encounter Results * (ABNORMAL) Chromogranin A (08/21/2021 9:22 AM WATCH CRYSTAL GRINDER) Chromogranin A 877(H) <93 ng/mL JASON LEAVITT [...] a homogeneous time-resolved immunofluorescent assay manufactured by [employer] and performed on the [employer] Kryptor Compact Plus. ? Values obtained with different assay methods or kits may be different and cannot be used interchangeably. ? Test results cannot be interpreted as absolute evidence for the presence or absence of malignant disease. Test Performed by: [facility] [place] [address] [place] [address] Switchboard Installer: Immanuel Novak M.D. Ph.D.; CLIA# [id number] Blood 08/21/2021 9:22 AM WATCH CRYSTAL GRINDER 08/21/2021 10:06 AM WATCH CRYSTAL GRINDER Joelle Eugene SUPERINTENDENT QUARRY LAB BLOOD ORDERABLES Fi nal Result JASON BLACK One [facility] Department [place] [address] * (ABNORMAL) eGFR (08/21/2021 9:18 AM WATCH CRYSTAL GRINDER) eGFR 49(L) 90 - 130 mL/min/1. 73 m2 JASON [facility] Comment: Interpretive Data Reference Interval Normal ?>/= [...] reviewed 2021. Testing performed by: [facility], [address] [place] [phone] Blood 08/21/2021 9:18 AM WATCH CRYSTAL GRINDER 08/21/2021 9:20 AM WATCH CRYSTAL GRINDER Joelle Eugene NP LAB BLOOD ORDERABLES Fi nal Result JASON [facility] One [facility] [place] [address] * (ABNORMAL) Differential, auto (08/21/2021 9:18 AM WATCH CRYSTAL GRINDER) Neutrophil abs 2.3 1.8 - 6.6 K/cumm [facility] Comment:Testing performed by : [facility], [address] [place] [phone] Lymphocyte abs 0.6(L) 1.2 - 3.3 K/cumm [facility] Comment:Testing performed by : [facility], [address] [place] [phone] Monocyte abs 0.2 0.2 - 1.2 K/cumm [facility] Comment:Testing performed by : [facility], [address] [place] [phone] Eosinophil abs 0.1 0.0 - 0.5 K/cumm [facility] Comment:Testing performed by : [facility], [address] [place] [phone] Basophil abs 0.0 0.0 - 0.2 K/cumm [facility] Comment:Testing performed by : [facility], [address] [place] [phone] Neutrophil pct 71.8 % [facility] Comment: Interpretive Data Percent cell count reference ranges are not reported, since discordance with absolute values may lead to misinterpretation of CBC data. Current Interpretive Data was last revised on 2017. Testing performed by: [facility], [address] [place] [phone] Lymphocyte pct 17.5 % [facility] Comment: Interpretive Data Percent cell count reference ranges are not reported, since discordance with absolute values may lead to misinterpretation of CBC data. Current Interpretive Data was last revised on 2017. Testing performed by: [facility], [address] [place] [phone] Monocyte pct 6.4 % [facility] Comment:Testing performed by : [facility], [address] [place] [phone] Eosinophil pct 3.5 % [facility] Comment:Testing performed by : [facility], [address] [place] [phone] Basophil pct 0.8 % [facility] Comment:Testing performed by : [facility], [address] [place] [phone] Blood 08/21/2021 9:18 AM WATCH CRYSTAL GRINDER 08/21/2021 9:20 AM WATCH CRYSTAL GRINDER us Joelle Eugene SUPERINTENDENT QUARRY LAB BLOOD ORDERABLES Fi nal Result JASON [facility] One [facility] Department [place] [address] * (ABNORMAL) CBC with auto differential (08/21/2021 9:18 AM WATCH CRYSTAL GRINDER) WBC 3.1(L) 3.8 - 9.8 K/cumm JASON BLACK Comment:Testing performed by : [address] [phone] Hgb 15.5(H) 12.1 - 15.1 g/dL JASON BLACK Comment:Testing performed by : [facility], [address] [place] [phone] Hct 43.2 36.1 - 44.3 % JASON BLACK Comment:Testing performed by : [address] [phone] Plt 99(L) 140 - 440 K/cumm JASON BLACK Comment:Testing performed by : [address] [phone] MPV 8.8 6.8 - 10.4 fL JASON BLACK Comment:Testing performed by : [facility], [address] [place] [phone] RBC 4.96 3.90 - 5.00 M/cumm JASON BLACK Comment:Testing performed by : [address] [phone] MCV 87.0 80.0 - 97.6 fL JASON BLACK Comment:Testing performed by : [address] [phone] MCH 31.2 26.7 - 33.7 pg JASON BLACK Comment:Testing performed by : [facility], [address] [place] [phone] MCHC 35.8(H) 32.7 - 35.5 g/dL JASON BLACK Comment:Testing performed by : [facility], [address] [place] [phone] RDW CV 13.8 11.8 - 14.6 % JASON BLACK Comment:Testing performed by : [facility], [address] [place] [phone] NRBC abs 0.08(H) 0.00 - 0.01 K/cumm JASON BLACK Comment:Testing performed by : [facility], [address] [place] [phone] Blood 08/21/2021 9:18 AM WATCH CRYSTAL GRINDER 08/21/2021 9:20 AM WATCH CRYSTAL GRINDER Joelle Eugene SUPERINTENDENT QUARRY LAB BLOOD ORDERABLES Fi nal Result Performing Organization Address City/State/[facility] Co de Phone Number JASON BLACK One [facility] Department [place] [address] * (ABNORMAL) Comprehensive metabolic panel (08/21/2021 9:18 AM WATCH CRYSTAL GRINDER) Sodium 138 135 - 145 mmol/L JASON BLACK Comment:Testing performed by : [facility], [address] [place] [phone] Potassium, pl 4.1 3.3 - 4.9 mmol/L JASON BLACK Comment:Testing performed by : [facility], [address] [place] [phone] Chloride 102 97 - 110 mmol/L JASON BLACK Comment:Testing performed by : [facility], [address] [place] [phone] CO2 25 22 - 32 mmol/L JASON BLACK Comment:Testing performed by : [facility], [address] [place] [phone] Anion gap 11 2 - 15 mmol/L JASON BLACK Comment:Testing performed by : [facility], [address] [place] [phone] BUN 16 8 - 25 mg/dL JASON LEAVITT Comment:Testing performed by : [facility], [address] [place] [phone] Creatinine 1.19(H) 0.60 - 1.10 mg/dL [facility] Comment:Testing performed by : [facility], [address] [place] [phone] Glucose 129 70 - 199 mg/dL CERNER [...] revised 2017. Testing performed by: [facility], [address] [place] [phone] Calcium 10.9(H) 8.5 - 10.3 mg/dL [facility] Comment:Testing performed by : [address] [phone] Bilirubin, total 0.8 0.1 - 1.2 mg/dL [facility] Comment:Testing performed by : [address] [phone] Protein, pl 6.8 6.5 - 8.5 g/dL [facility] Comment:Testing performed by : [address] [phone] Albumin 4.2 3.5 - 5.0 g/dL [facility] Comment:Testing performed by : [address] [phone] Alk phos 106 40 - 130 Units/L [facility]MIN[facility] Comment:Testing performed by : [place] [phone] ALT 33 7 - 45 Units/L [facility] Comment:Testing performed by : [address] [phone] AST 45 10 - 45 Units/L [facility] Comment:Testing performed by : [facility], [address] [place] [phone] Blood 08/21/2021 9:18 AM WATCH CRYSTAL GRINDER 08/21/2021 9:20 AM WATCH CRYSTAL GRINDER Joelle Eugene SUPERINTENDENT QUARRY LAB BLOOD ORDERABLES Fi nal Result Performing Organization Address City/[facility]/ZIP Co de Phone Number [facility] [place] [address] * Magnesium (08/21/2021 9:18 AM WATCH CRYSTAL GRINDER) Magnesium 1.4 1.4 - 2.5 mg/dL [facility] Comment:Testing performed by : [facility], [address] [place] [phone] Blood 08/21/2021 9:18 AM WATCH CRYSTAL GRINDER 08/21/2021 9:20 AM WATCH CRYSTAL GRINDER Joelle Eugene SUPERINTENDENT QUARRY LAB BLOOD ORDERABLES Fi nal Result Performing Organization Address [facility] Co de Phone Number [facility] [place] [address] * Phosphorus (08/21/2021 9:18 AM WATCH CRYSTAL GRINDER) Phosphorus, pl 2.9 2.3 - 4.5 mg/dL [facility] Comment:Testing performed by : [facility], [address] [place] [phone] Blood 08/21/2021 9:18 AM WATCH CRYSTAL GRINDER 08/21/2021 9:20 AM WATCH CRYSTAL GRINDER Joelle Eugene SUPERINTENDENT QUARRY LAB BLOOD ORDERABLES Fi nal Result Performing Organization Address City/[facility]/ZIP Co de Phone Number [facility] Laboratories [place], [place] [id number] * (ABNORMAL) Lipid panel (08/21/2021 9:18 AM WATCH CRYSTAL GRINDER) [facility] Signature Cholesterol 187 30 - 199 mg/dL JASON [facility] Comment: Interpretive Data Ages < or = [...] on 2018. Triglycerides 226(H) <=149 mg/dL JASON [facility] Comment: Interpretive Data Ages < or = [...] on 2018. LDL, calculated 75 <=129 mg/dL [facility] [...] revised on 2018. Non-HDL Cholesterol 120 mg/dL [facility] Comment: [...] 3 [facility] Blood 08/21/2021 9:18 AM WATCH CRYSTAL GRINDER 08/21/2021 9:57 AM WATCH CRYSTAL GRINDER Joelle Eugene SUPERINTENDENT QUARRY LAB BLOOD ORDERABLES Fi nal Result Performing Organization Address City/[facility] Co de Phone Number [facility] [place] [employer] [place] [address] * (ABNORMAL) Vitamin D 25 hydroxy (08/21/2021 9:18 AM WATCH CRYSTAL GRINDER) Vitamin D 25-OH 27(L) 30 - 80 ng/mL [facility] Blood 08/21/2021 9:18 AM WATCH CRYSTAL GRINDER 08/21/2021 9:57 AM WATCH CRYSTAL GRINDER Joelle Eugene SUPERINTENDENT QUARRY LAB BLOOD ORDERABLES Fi nal Result Performing Organization Address [facility] de Phone Number [facility] [place] [employer] [place] [address] documented in this encounter Visit Diagnoses Diagnosis [...] 08/21/2021 documented in this encounter Care Teams Precision Assembler Bench Relationship Specialty Start Date End Date Julio César Briseno MD PCP - General 10/01/16 Eren Cr MD Referring Physician Medical Oncology 11/25/18 Yohana Bowen MD Radiation Oncologist Radiation Oncology 11/25/18 Sabrina Willard NP [address] [place] [address] Nurse Practitioner Medical Oncology 08/17/20 11/26/21 documented as of this encounter
--- OUTSIDE RECORDS SUMMARY | 2024-06-26 02:08 | XMS_ITS | Encounter Summary ---
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 Gender Identity Not on file Sexual Orientation Straight 02/19/2021 9: 29 AM CDT Occupation Industry Job Start Date Job End Date retired Not on file Not on file Not on file documented as of this encounter Miscellaneous Notes * Telephone Encounter - Sabrina Ruiz RN - 09/12/2021 5:08 PM VECTOR CONTROL ASSISTANT Preprocedure Phone Call Procedure Time Verified: Yes Arrival Time Verified: Yes Procedure Location Verified: Yes Medical History Reviewed: Yes NPO Status Reinforced: Yes Ride and Caregiver Arranged: Yes Ride Caregiver Provider: Patient Knows to Bring Current Medications: Yes Patient Knows to Bring CPAP: No Is Patient on Home Ventilator?: No Is Patient on Blood Thinners?: No OR CONTROL ASSISTANT documented in this encounter Plan of Treatment Not on file documented as of this encounter Visit Diagnoses Not on filedocumented in this encounter Additional Health Concerns Infection Onset Date Last Indicated Resolved Time Exposure, COVID-19 Comment:Added automatically based on COVID19 lab answers indicating exposure risk 09/04/2021 09/04/2021 09/14/2021 3:[address] documented as of this encounter Care Teams Suppression Crew Leader Relationship Specialty Start Date End Date Julio César Briseno MD PCP - General 10/01/16 Eren Cr MD Referring Physician Medical Oncology 11/25/18 Yohana Bowen MD Radiation Oncologist Radiation Oncology 11/25/18 Sabrina Willard NP [address] [place] [address] Nurse Practitioner Medical Oncology 08/17/20 11/26/21 documented as of this encounter
--- OUTSIDE RECORDS SUMMARY | 2024-06-26 02:08 | XMS_ITS | Encounter Summary ---
Author Organization [facility] Address [address] [place] [address] Phone Care Team Providers Care Communications Programmer Name Role Phone Julio César Briseno MD Primary Care Provider Eren Cr MD Unavailable Yohana Bowen MD Unavailable Sabrina Willard NP Unavailable Encounter Details Date Type Department Care Team (Late st Contact Info) Description 09/05/2021 Orders Only [facility] Oncology [address] [facility] Advanced Medicine 7th [place] [address] [place] [phone] Eren Cr MD [address] [facility] [address] [place] [address] Social History Tobacco Use Types Packs/Day Years [...] on file Legal Sex Female 2: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
--- OUTSIDE RECORDS SUMMARY | 2024-06-26 02:08 | XMS_ITS | Encounter Summary ---
Author Organization [facility] Address [address] [place] [address] Phone Care Team Providers Care Laboratory Associate Name Role Phone Julio César Briseno MD Primary Care Provider [phone] Eren Cr MD Unavailable Yohana Bowen MD Unavailable Sabrina Willard NP Unavailable Encounter Details Date Type Department Care Team (Late st Contact Info) Description 08/21/2021 Orders Only [facility] Oncology [address] [facility] Advanced Medicine 7th [place] [address] [place] [phone] Eren Cr MD [address] [facility] [address] [place] [address] Social History Tobacco Use Types Packs/Day Years [...] on file 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 Gender Identity Not on file Sexual Orientation Straight 02/19/2021 9: 29 AM CDT Occupation Industry Job Start Date Job End Date retired Not on file Not on file Not on file documented as of this encounter Plan of Treatment Not on file documented as of this encounter Visit Diagnoses Not on filedocumented in this encounter Care Teams Laboratory Associate Relationship Specialty Start Date End Date Julio César Briseno MD PCP - General 10/01/16 Eren Cr MD Referring Physician Medical Oncology 11/25/18 Yohana Bowen MD Radiation Oncologist Radiation Oncology 11/25/18 Sabrina Willard NP [address] [place] [address] Nurse Practitioner Medical Oncology 08/17/20 11/26/21 documented as of this encounter
--- OUTSIDE RECORDS SUMMARY | 2024-06-26 02:09 | XMS_ITS | Encounter Summary ---
Author Organization [facility] Address [address] [place] [address] Phone Care Team Providers Care Aquatic Physiotherapist Name Role Phone Julio César Briseno MD Primary Care Provider Eren Cr MD Unavailable Yohana Bowen MD Unavailable Sabrina Willard NP Unavailable [phone] Encounter Details Date Type Department Care Team (Late st Contact Info) Description 07/21/2021 Orders Only [facility] Oncology [address] 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 Gender Identity Not on file Sexual Orientation Straight 02/19/2021 9: 29 AM CDT Occupation Industry Job Start Date Job End Date retired Not on file Not on file Not on file documented as of this encounter Plan of Treatment Not on file documented as of this encounter Visit Diagnoses Not on filedocumented in this encounter Care Teams Aquatic Physiotherapist Relationship Specialty Start Date End Date Julio César Briseno MD PCP - General 10/01/16 Eren Cr MD Referring Physician Medical Oncology 11/25/18 Yohana Bowen MD Radiation Oncologist Radiation Oncology 11/25/18 Sabrina Willard NP [address] [place] [address] Nurse Practitioner Medical Oncology 08/17/20 11/26/21 documented as of this encounter
--- OUTSIDE RECORDS SUMMARY | 2024-06-26 02:09 | XMS_ITS | Encounter Summary ---
Author Organization [facility] Address [address] [place] [address] Phone Care Team Providers Care Receiving Coordinator Name Role Phone Julio César Briseno MD Primary Care Provider [phone] Eren Cr MD Unavailable [phone] Yohana Bowen MD Unavailable Sabrina Willard NP Unavailable [phone] Encounter Details Date Type Department Care Team (Late st Contact Info) Description 07/20/2021 Orders Only [facility] Oncology [address] [facility] Advanced Medicine 7th [place] [address] [place] [address] Eren Cr MD [address] [facility] [address] [place] [address] Neuro-endocrine carcinoma (CMS/HCC) (HCC) (Primary Dx) Social [...] on file Legal Sex Female 2:41 PM 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
--- OUTSIDE RECORDS SUMMARY | 2024-06-26 02:09 | XMS_ITS | Encounter Summary ---
Author Organization [facility] Address [address] [place] [address] Phone Care Team Providers Care Barrel Centerer Name Role Phone Julio César Briseno MD Primary Care Provider [phone] Eren Cr MD Unavailable [phone] Yohana Bowen MD Unavailable Sabrina Willard NP Unavailable [phone] Encounter Details Date Type Department Care Team (Late st Contact Info) Description 08/16/2021 Orders Only [facility] Oncology [address] [facility] Advanced Medicine 7th [place] [address] [place] [address] Eren Cr MD [facility] [address] [place] [address] Malignant neoplasm metastatic to liver (CMS/HCC) (HCC) [...] file Legal Sex Female 2:41 PM BRIDGE DESIGN ENGINEER Gender Identity Not on file Sexual Orientation Straight 02/19/2021 9: 29 AM CDT Occupation Industry Job Start Date Job End Date retired Not on file Not on file Not on file documented as of this encounter Plan of Treatment Not on file documented as of this encounter Results * (ABNORMAL) Chromogranin A (08/21/2021 9:22 AM BRIDGE DESIGN ENGINEER) Chromogranin A 877(H) <93 ng/mL [facility] Comment: Impaired renal or hepatic function or treatment with proton pump inhibitors may result in artifactual elevations of Chromogranin A. ADDITIONAL INFORMATION This test was developed and its performance characteristics determined by [facility] in a manner consistent with CLIA requirements. This test has not been cleared or approved by the U.S. Food and Drug Administration. The testing method is a homogeneous time-resolved immunofluorescent assay manufactured by [employer] and performed on the [employer] Kryptor Compact Plus. ? Values obtained with different assay methods or kits may be different and cannot be used interchangeably. ? Test results cannot be interpreted as absolute evidence for the presence or absence of malignant disease. Test Performed by: [facility] [address] [address] Motorcycle Deliverer: Immanuel Novak M.D. Ph.D.; CLIA# [id number] Blood 08/21/2021 9:22 AM BRIDGE DESIGN ENGINEER 08/21/2021 10:06 AM BRIDGE DESIGN ENGINEER us Joelle Eugene CANDLE CUTTER LAB BLOOD ORDERABLES Fi nal Result JASON BLACK [facility] [place] [address] * Phosphorus (08/21/2021 9:18 AM BRIDGE DESIGN ENGINEER) [facility] Phosphorus, pl 2.9 2.3 - 4.5 mg/dL [facility] Comment:Testing performed by : [facility], [address] [place] [phone] Blood 08/21/2021 9:18 AM BRIDGE DESIGN ENGINEER 08/21/2021 9:20 AM BRIDGE DESIGN ENGINEER Joelle Eugene CANDLE CUTTER LAB BLOOD ORDERABLES Fi nal Result Performing Organization Address City/[facility]/[place] Co de Phone Number [facility] Laboratories [place], [place] [id number] * Magnesium (08/21/2021 9:18 AM BRIDGE DESIGN ENGINEER) [facility] Magnesium 1.4 1.4 - 2.5 mg/dL [facility] Comment:Testing performed by : [facility], [address] [place] [phone] Blood 08/21/2021 9:18 AM BRIDGE DESIGN ENGINEER 08/21/2021 9:20 AM BRIDGE DESIGN ENGINEER Joelle Eugene CANDLE CUTTER LAB BLOOD ORDERABLES Fi nal Result Performing Organization Address City/[facility]/[place] Co de Phone Number [facility] of Laboratories [place], [place] [id number] * (ABNORMAL) Comprehensive metabolic panel (08/21/2021 9:18 AM BRIDGE DESIGN ENGINEER) [facility] Sodium 138 135 - 145 mmol/L [facility] Comment:Testing performed by : [facility], [address] [place] [phone] Potassium, pl 4.1 3.3 - 4.9 mmol/L [facility] Comment:Testing performed by : [facility], [address] [place] [phone] Chloride 102 97 - 110 mmol/L [facility] Comment:Testing performed by : [facility], [address] [place] [phone] CO2 25 22 - 32 mmol/L [facility] Comment:Testing performed by : [facility], [address] [place] [phone] Anion gap 11 2 - 15 mmol/L [facility] Comment:Testing performed by : [facility], [address] [place] [phone] BUN 16 8 - 25 mg/dL [facility] Comment:Testing performed by : [facility], [address] [place] [phone] Creatinine 1.19(H) 0.60 - 1.10 mg/dL [facility] Comment:Testing performed by : [facility], [address] [place] [phone] Glucose 129 70 - 199 mg/dL CERNER [...] was last revised 2017. Testing performed by: [facility], [address] [place] [phone] Calcium 10.9(H) 8.5 - 10.3 mg/dL [facility] Comment:Testing performed by : [facility], [address] [place] [phone] Bilirubin, total 0.8 0.1 - 1.2 mg/dL [facility] Comment:Testing performed by : [facility], [address] [place] [phone] Protein, pl 6.8 6.5 - 8.5 g/dL [facility] Comment:Testing performed by : [facility], [address] [place] [phone] Albumin 4.2 3.5 - 5.0 g/dL [facility] Comment:Testing performed by : [facility], [address] [place] [phone] Alk phos 106 40 - 130 Units/L [facility] BLACK Comment:Testing performed by : [facility], [address] [place] [phone] ALT 33 7 - 45 Units/L [facility] Comment:Testing performed by : [facility], [address] [place] [phone] AST 45 10 - 45 Units/L [facility] Comment:Testing performed by : [facility], [address] [place] [phone] Blood 08/21/2021 9:18 AM BRIDGE DESIGN ENGINEER 08/21/2021 9:20 AM BRIDGE DESIGN ENGINEER Joelle Eugene CANDLE CUTTER LAB BLOOD ORDERABLES Fi nal Result JASON BLACK [facility] Department [place] [address] * (ABNORMAL) CBC with auto differential (08/21/2021 9:18 AM BRIDGE DESIGN ENGINEER) WBC 3.1(L) 3.8 - 9.8 K/cumm JASON BLACK Comment:Testing performed by : [facility], [address] [place] [phone] Hgb 15.5(H) 12.1 - 15.1 g/dL [facility] Comment:Testing performed by : [facility], [address] [place] [phone] Hct 43.2 36.1 - 44.3 % [facility] BLACK Comment:Testing performed by : [facility], [address] [place] [phone] Plt 99(L) 140 - 440 K/cumm JASON BLACK Comment:Testing performed by : [facility], [address] [place] [phone] MPV 8.8 6.8 - 10.4 fL [facility] Comment:Testing performed by : [address] [phone] RBC 4.96 3.90 - 5.00 M/cumm [facility] Comment:Testing performed by : [facility], [address] [place] [phone] MCV 87.0 80.0 - 97.6 fL [facility] Comment:Testing performed by : [facility], [address] [place] [phone] MCH 31.2 26.7 - 33.7 pg [facility] Comment:Testing performed by : [facility], [address] [place] [phone] MCHC 35.8(H) 32.7 - 35.5 g/dL [facility] Comment:Testing performed by : [facility], [address] [place] [phone] RDW CV 13.8 11.8 - 14.6 % [facility] Comment:Testing performed by : [facility], [address] [place] [phone] NRBC abs 0.08(H) 0.00 - 0.01 K/cumm [facility] Comment:Testing performed by : [facility], [address] [place] [phone] Blood 08/21/2021 9:18 AM BRIDGE DESIGN ENGINEER 08/21/2021 9:20 AM BRIDGE DESIGN ENGINEER Joelle Eugene CANDLE CUTTER LAB BLOOD ORDERABLES Fi nal Result Performing Organization Address [facility]/ZIP Co de Phone Number [facility] [place] [address] * (ABNORMAL) Vitamin D 25 hydroxy (08/21/2021 9:18 AM BRIDGE DESIGN ENGINEER) Vitamin D 25-OH 27(L) 30 - 80 ng/mL [facility] Blood 08/21/2021 9:18 AM BRIDGE DESIGN ENGINEER 08/21/2021 9:57 AM BRIDGE DESIGN ENGINEER Joelle Eugene CANDLE CUTTER LAB BLOOD ORDERABLES Fi nal Result Performing Organization Address City/[facility]/ZIP Co de Phone Number [facility] [place] [address] * (ABNORMAL) Lipid panel (08/21/2021 9:18 AM BRIDGE DESIGN ENGINEER) [facility] Cholesterol 187 30 - 199 mg/dL JASON [...] on 2018. Triglycerides 226(H) <=149 mg/dL [facility] Comment: Interpretive Data [...] revised on 2018. HDL 67 >=40 mg/dL [facility] Comment: Interpretive Data [...] on 2018. LDL, calculated 75 <=129 mg/dL [facility] Comment: Interpretive Data [...] revised on 2018. Non-HDL Cholesterol 120 mg/dL [facility] Comment: Interpretive Data [...] on 2018. Chol/HDL ratio 3 [facility] Blood 08/21/2021 9:18 AM BRIDGE DESIGN ENGINEER 08/21/2021 9:57 AM BRIDGE DESIGN ENGINEER us Joelle Eugene CANDLE CUTTER LAB BLOOD ORDERABLES Fi nal Result [facility] [place] [address] documented in this encounter Visit [...] 08/21/19 documented in this encounter Care Teams Barrel Centerer Relationship Specialty Start Date End Date Julio César Briseno MD PCP - General 10/01/16 Eren Cr MD Referring Physician Medical Oncology 11/25/18 Yohana Bowen MD Radiation Oncologist Radiation Oncology 11/25/18 Sabrina Willard NP [address] [place] [address] Nurse Practitioner Medical Oncology 08/17/20 11/26/21 documented as of this encounter
--- OUTSIDE RECORDS SUMMARY | 2024-06-26 02:09 | XMS_ITS | Encounter Summary ---
Author Organization [facility] Address [address] [place] [address] Phone Care Team Providers Care Reimbursement Manager Name Role Phone Julio César Briseno MD Primary Care Provider [phone] Eren Cr MD Unavailable [phone] Yohana Bowen MD Unavailable Sabrina Willard NP Unavailable Encounter Details Date Type Department Care Team (Late st Contact Info) Description 07/27/2021 Orders Only [facility] Oncology [address] [facility] Advanced Medicine 7th [place] [address] [place] [address] Eren Cr MD [address] [facility] [address] [place] [address] Neuro-endocrine carcinoma (CMS/HCC) (HCC) (Primary Dx) Social [...] on file Legal Sex Female 2:41 PM THREAD SPOOLER Gender Identity Not on file Sexual Orientation Straight 02/19/2021 9: 29 AM CDT Occupation Industry Job Start Date Job End Date retired Not on file Not on file Not on file documented as of this encounter Plan of Treatment Not on file documented as of this encounter Results * Phosphorus (08/07/2021 2:12 PM THREAD SPOOLER) Pathologist [facility] Phosphorus, pl 2.4 2.3 - 4.5 mg/dL [facility] Comment:Testing performed by : [facility], [address] [place] [phone] Blood 08/07/2021 2:12 PM THREAD SPOOLER 08/07/2021 2:15 PM THREAD SPOOLER Eren Cr MD LAB BLOOD ORDERABLES Final Re sult Performing Organization Address City/[facility]/ZIP Co de Phone Number [facility] Department of Laboratories [place], [place] [id number] * Magnesium (08/07/2021 2:12 PM THREAD SPOOLER) [facility] Magnesium 1.6 1.4 - 2.5 mg/dL [facility] Comment:Testing performed by : [facility], [address] [place] [phone] Blood 08/07/2021 2:12 PM THREAD SPOOLER 08/07/2021 2:15 PM THREAD SPOOLER Eren Cr MD LAB BLOOD ORDERABLES Final Re sult Performing Organization Address City/[facility]/ZIP Co de Phone Number [facility] [place] [address] * (ABNORMAL) Comprehensive metabolic panel (08/07/2021 2:12 PM THREAD SPOOLER) [facility] Sodium 139 135 - 145 mmol/L [facility] Comment:Testing performed by : [facility], [address] [place] [phone] Potassium, pl 4.2 3.3 - 4.9 mmol/L [facility] Comment:Testing performed by : [facility], [address] [place] [phone] Chloride 103 97 - 110 mmol/L [facility] Comment:Testing performed by : [facility], [address] [place] [phone] CO2 29 22 - 32 mmol/L [facility] Comment:Testing performed by : [facility], [address] [place] [phone] Anion gap 7 2 - 15 mmol/L [facility] Comment:Testing performed by : [facility], [address] [place] [phone] BUN 9 8 - 25 mg/dL [facility] Comment:Testing performed by : [facility], [address] [place] [phone] Creatinine 0.96 0.60 - 1.10 mg/dL [facility] Comment:Testing performed by : [facility], [address] [place] [phone] Glucose 111 70 - 199 mg/dL CERNER [...] was last revised 2017. Testing performed by: [facility], [address] [place] [phone] Calcium 10.6(H) 8.5 - 10.3 mg/dL [facility] Comment:Testing performed by : [facility], [address] [place] [phone] Bilirubin, total 0.6 0.1 - 1.2 mg/dL [facility] Comment:Testing performed by : [facility], [address] [place] [phone] Protein, pl 6.7 6.5 - 8.5 g/dL [facility] Comment:Testing performed by : [facility], [address] [place] [phone] Albumin 4.3 3.5 - 5.0 g/dL [facility] Comment:Testing performed by : [facility], [address] [place] [phone] Alk phos 107 40 - 130 Units/L [facility] BL[facility] Comment:Testing performed by : [facility], [address] [place] [phone] ALT 33 7 - 45 Units/L [facility] Comment:Testing performed by : [facility], [address] [place] [phone] AST 42 10 - 45 Units/L [facility] Comment:Testing performed by : [facility], [address] [place] [phone] Blood 08/07/2021 2:12 PM THREAD SPOOLER 08/07/2021 2:15 PM THREAD SPOOLER us Eren Cr MD LAB BLOOD ORDERABLES Final Re sult [facility] One [facility] Department of Laboratories [place], [place] [id number] * (ABNORMAL) CBC with auto differential (08/07/2021 2:12 PM THREAD SPOOLER) WBC 4.1 3.8 - 9.8 K/cumm [facility] Comment:Testing performed by : [facility], [address] [place] [phone] Hgb 14.2 12.1 - 15.1 g/dL [facility] BL[facility] Comment:Testing performed by : [facility], [address] [place] [phone] Hct 40.4 36.1 - 44.3 % [facility] BL[facility] Comment:Testing performed by : [facility], [address] [place] [phone] Plt 103(L) 140 - 440 K/cumm J[facility]ON BLACK Comment:Testing performed by : [facility], [address] [place] [phone] MPV 8.1 6.8 - 10.4 fL [facility] Comment:Testing performed by : [facility], [address] [place], [place] [phone] RBC 4.60 3.90 - 5.00 M/cumm J[facility]ON BLACK Comment:Testing performed by : [facility], [address] [place], [place] [phone] MCV 87.8 80.0 - 97.6 fL [facility] BL[facility] Comment:Testing performed by : [facility], [address] [place] [phone] MCH 30.9 26.7 - 33.7 pg [facility] BL[facility] Comment:Testing performed by : [facility], [address] [place] [phone] MCHC 35.2 32.7 - 35.5 g/dL [facility] Comment:Testing performed by : [facility], [address] [place] [phone] RDW CV 13.5 11.8 - 14.6 % [facility] Comment:Testing performed by : [facility], [address] [place] [phone] NRBC abs 0.00 0.00 - 0.01 K/cumm [facility] Comment:Testing performed by : [facility], [address] [place] [phone] Blood 08/07/2021 2:12 PM THREAD SPOOLER 08/07/2021 2:15 PM THREAD SPOOLER us Eren Cr MD LAB BLOOD ORDERABLES Final Re sult [facility] One [facility] Department [place] [address] documented in this encounter Visit Diagnoses Diagnosis Neuro-endocrine carcinoma (HCC)- Primary Other malignant neoplasm of unspecified site documented in this encounter Orders Appointment Requests Count Last Ordered Date Fi rst Ordered Date ONCBCN CLINIC APPOINTMENT REQUEST 1 022 ONCBCN LAB APPOINTMENT 1 08/07/2021 documented in this encounter Care Teams Reimbursement Manager Relationship Specialty Start Date End Date Julio César Briseno MD PCP - General 10/01/16 Eren Cr MD Referring Physician Medical Oncology 11/25/18 Yohana Bowen MD Radiation Oncologist Radiation Oncology 11/25/18 Sabrina Willard NP [address] [place] [address] Nurse Practitioner Medical Oncology 08/17/20 11/26/21 documented as of this encounter
--- OUTSIDE RECORDS SUMMARY | 2024-06-26 02:09 | XMS_ITS | Encounter Summary ---
Author Organization [facility] Address [address] [place] [address] Phone Care Team Providers Care Assembly Mechanic Name Role Phone Julio César Briseno MD Primary Care Provider Eren Cr MD Unavailable Yohana Bowen MD Unavailable Sabrina Willard NP Unavailable [phone] Encounter Details Date Type Department Care Team (Latest Contact Info) Description 07/21/2021 Research Med Pick-Up/CTRU Pole Peeler [facility] Oncology [address] [place] [address] Advanced Medicine 7th [place] [address] Mell Michel, [facility] Neuro-endocrine carcinoma (CMS/HCC) (HCC) (Primary [...] file Legal Sex Female 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 [facility] cabozantinib/maris cebo (/[id number]) 20 mg tabletIndication s:cancer study Take 1 tablet (20 mg total) by mouth nightly Take on an empty stomach (no food for 2 hours before and 1 hour after each dose).?? Avoid Jas's Wort, grapefruit products and [place] oranges while on treatment. placed on hold 09/26/22 for covid 01/29/2022 4 added in this encounter Orders Medications Ordered That Brett ht Not Have Been Administered Count Last Ordered Date First Ordered Date [facility] cabozantinib/pl acebo (/[id number]) tablet 60 mg 1 07/21/2021 documented in this encounter Care Teams Assembly Mechanic Relationship Specialty Start Date End Date Julio César Briseno MD PCP - General 10/01/16 Eren Cr MD Referring Physician Medical Oncology 11/25/18 Yohana Bowen MD Radiation Oncologist Radiation Oncology 11/25/18 Sabrina Willard NP [address] [place] [address] Nurse Practitioner Medical Oncology 08/17/20 11/26/21 documented as of this encounter
--- OUTSIDE RECORDS SUMMARY | 2024-06-26 02:09 | XMS_ITS | Encounter Summary ---
Author Organization [facility] Address [address] [place] [address] Phone Care Team Providers Care Dental Aide Name Role Phone Julio César Briseno MD Primary Care Provider [phone] Eren Cr MD Unavailable [phone] Yohana Bowen MD Unavailable Sabrina Willard NP Unavailable [phone] Reason for Visit * Reason Onset Date Comments follow up n/v 08/11/2021 Encounter Details Date Type Department Care Team (Late st Contact Info) Description 08/11/2021 Telephone [facility] Oncology [address] [facility] Advanced Medicine 7th [place] [address] [place] [address] Eren Cr MD [address] [facility] [address] [place] [address] follow up n/v Social History Tobacco Use [...] Legal Sex Female 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 OF ORGANIZATIONAL DEVELOPMENT Gender Identity Not on file Sexual [...] in about 45 minutes on patient status. GER OF ORGANIZATIONAL DEVELOPMENT documented in this encounter Plan of Treatment Not on file documented as of this encounter Visit Diagnoses Not on filedocumented in this encounter Care Teams Dental Aide Relationship Specialty Start Date End Date Julio César Briseno MD PCP - General 10/01/16 Eren Cr MD Referring Physician Medical Oncology 11/25/18 Yohana Bowen MD Radiation Oncologist Radiation Oncology 11/25/18 Sabrina Willard NP [address] [place] [address] Nurse Practitioner Medical Oncology 08/17/20 11/26/21 documented as of this encounter
--- OUTSIDE RECORDS SUMMARY | 2024-06-26 02:09 | XMS_ITS | Encounter Summary ---
Author Organization [facility] Address [address] [place] [address] Phone Care Team Providers Care Apparel Stock Checker Name Role Phone Julio César Briseno MD Primary Care Provider Eren Cr MD Unavailable [phone] Yohana Bowen MD Unavailable Sabrina Willard NP Unavailable [phone] Encounter Details Date Type Department Care Team (Late st Contact Info) Description 08/03/2021 Orders Only [facility] On[facility] [address] [facility] Advanced Medicine 7th [place] [address] [place] [address] Eren Cr MD [address] [facility] [address] [place] [address] Neuro-endocrine carcinoma (CMS/HCC) (HCC) (Primary Dx) Social [...] on file Legal Sex Female 2:41 PM DISPLAY TRIMMER Gender Identity Not on file Sexual [...] site documented in this encounter Care Teams Apparel Stock Checker Relationship Specialty Start Date End Date Julio César Briseno MD PCP - General 10/01/16 Eren Cr MD Referring Physician Medical Oncology 11/25/18 Yohana Bowen MD Radiation Oncologist Radiation Oncology 11/25/18 Sabrina Willard NP [address] [place] [address] Nurse Practitioner Medical Oncology 08/17/20 11/26/21 documented as of this encounter
--- OUTSIDE RECORDS SUMMARY | 2024-06-26 02:09 | XMS_ITS | Encounter Summary ---
Author Organization [facility] Address [address] [place] [address] Phone Care Team Providers Care Advertising Internship Name Role Phone Julio César Briseno MD Primary Care Provider Eren Cr MD Unavailable Yohana Bowen MD Unavailable Sabrina Willard NP Unavailable Encounter Details Date Type Department Care Team (Late st Contact Info) Description 08/09/2021 Orders Only [facility] Oncology [address] [facility] Advanced Medicine 7th [place] [address] [place] [address] Eren Cr MD [facility] [address] [place] [address] Malignant neoplasm metastatic to liver (CMS/HCC) (HCC) [...] on file Legal 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
--- OUTSIDE RECORDS SUMMARY | 2024-06-26 02:09 | XMS_ITS | Encounter Summary ---
Author Organization [facility] Healthcare Address [address] [place] [address] Care Team Providers Care Flute Grinder Name Role Phone Julio César Briseno MD Primary Care Provider [phone] Eren Cr MD Unavailable Yohana Bowen MD Unavailable Sabrina Willard NP Unavailable [phone] Encounter Details Date Type Department Care Team (Latest Contact Info) Description 07/19/2021 Orders Only Oncology Eren Cr MD [address] [facility] [address] [place], [place] [id number] Social History Tobacco Use Types Packs/Day Years [...] file Legal Sex Female 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 FINE Gender Identity Not on file Sexual Orientation Straight 02/19/2021 9: 29 AM CDT Occupation Industry Job Start Date Job End Date retired Not on file Not on file Not on file documented as of this encounter Plan of Treatment Not on file documented as of this encounter Visit Diagnoses Not on filedocumented in this encounter Care Teams Flute Grinder Relationship Specialty Start Date End Date Julio César Briseno MD PCP - General 10/01/16 Eren Cr MD Referring Physician Medical Oncology 11/25/18 Yohana Bowen MD Radiation Oncologist Radiation Oncology 11/25/18 Sabrina Willard NP [address] [place] [address] Nurse Practitioner Medical Oncology 08/17/20 11/26/21 documented as of this encounter
--- OUTSIDE RECORDS SUMMARY | 2024-06-26 02:09 | XMS_ITS | Encounter Summary ---
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) Procedures AL DENOSUMAB INJECTION DENOSUMAB (XGEVA) Eren Cr MD [address] [facility] [address] [place] [address] Phone: tel: fax: [facility] [address] [facility] Advanced Medicine 7th [place] [address] Phone: tel: Referral ID Status Reason Start Date Expiration Date V isits Requested Visits Authorized [id number] Authorized 03/02/2019 10/06/2024 1 60 Encounter Details Date Type Department Care Team (Latest Contact Info) Description 07/17/2021 4:42 PM NURSE RESEARCHER - 07/17/2021 7:40 PM NURSE RESEARCHER Hospital Encounter [facility] Advanced Medicine ([facility]) [address] [place] [address] Eren Cr MD [address] [facility] [address] [place] [address] Bone metastasis (CMS/HCC) (HCC) (Primary Dx); Neuro-endocrine [...] file Legal Sex Female 2:41 PM NURSE RESEARCHER Gender Identity Not on file Sexual Orientation Straight 02/19/2021 9: 29 AM CDT Occupation Industry Job Start Date Job End Date retired Not on file Not on file Not on file documented as of this encounter Last Filed Vital Signs Vital Sign Reading Time Taken Comments Blood Pressure 156/84 07/17/2021 7:23 PM NURSE RESEARCHER Pulse 72 07/17/2021 7:23 PM NURSE RESEARCHER Temperature 36.6 ??C (97.9 ??F) 07/17/2021 7:23 PM CS T Respiratory Rate 18 07/17/2021 7:23 PM NURSE RESEARCHER Oxygen Saturation 98% 07/17/2021 7:23 PM NURSE RESEARCHER Inhaled Oxygen Concentration - - Weight 79.7 kg (175 lb 12.8 oz) 07/17/2021 4:51 PM NURSE RESEARCHER Height - - Body Mass Index 32.06 07/17/2021 2:15 PM NURSE RESEARCHER documented in this encounter Discharge Diagnoses Diagnosis Encounter for antineoplastic immunotherapy - ENCOUNTER FOR ANTINEOPLASTIC IMMUNOTHERAPY Secondary malignant neoplasm of bone (CMS/HCC) (HCC) - SECONDARY MALIGNANT NEOPLASM OF BONE Other malignant neuroendocrine tumors (HCC) - OTHER MALIGNANT NEUROENDOCRINE TUMORS documented in this encounter Discharge Instructions * Patient Instructions* Breanne, Denisha Xiao RN - 07/17/2021 7:25 PM NURSE RESEARCHER .After 4:30 PM during the week, on weekends and holidays, call [phone] and ask to have the Grease Maker Physician paged for you. Saturday through Saturday, 8 AM to 4:30 PM, call [phone] [facility] Oncology Physician at [facility] and ask for a member of [...] any non-prescription medicine without your doctor's approval E RESEARCHER documented in this encounter Medications at Time [...] capsuleIndications :supplement Take 1 tablet by mouth tap dancer before breakfast 07/04/2016 4 cholecalciferol (VITAMIN D-3) 2,000 unit capsule Take 1 capsule (2,000 Units total) by mouth daily 30 capsule 2 04/25/2019 3 cholestyramine (QUESTRAN) 4 gram packet Take 1 packet by mouth 3 (three) times a day with meals 270 packet 3 09/04/2019 2 clotrimazole-betam ethasone (LOTRISONE) cream Apply 1 Application topically daily as needed (rash) 4 coenzyme [id number] E 100-5 mg-unit capsuleIndications :supplement Take 1 tablet by mouth tap dancer before breakfast 4 denosumab (XGEVA) 120 mg/1.7 [...] having nausea during fluid infusion. Talked to WATER SOFTENER SERVICE SUPERVISOR Portia. She ordered 8 mg ofZofran IVP. Pt felt better after Zofran. Pt's BP nre364/84 Manual at the end of infusion. Pt deniedheadache and ready to go home. Discharge instruction was given to patient . Discharged in stable condition. E RESEARCHER * Denisha Raymundo RN - 07/17/2021 5:32 PM CST Pt arrived to [facility] for 1 L of NS, accompanied by family. Reviewed todays plan of care with the patient and is agreeable with this plan. Pt is sitting in the chair / bed in comfortable position. E RESEARCHER documented in this encounter Plan of Treatment [...] For 1 doseIndications:Nausea Given 07/17/2021 6:43 PM NURSE RESEARCHER 8 mg sodium chloride 0.9% bolus 1,000 mL 1,000 mL, intravenous, at 500 mL/hr, Administer over 2 Hours, Once, On Sat07/17/21 at 1720, For 1 doseIndications:Bone metastasis,Neuro-endocrine carcinoma (HCC) New Bag 07/17/2021 5:11 PM NURSE RESEARCHER 1,000 mL 500 mL/hr documented in this encounter Active and Recently Administered Medications Times are shown in NURSE RESEARCHER. Scheduled Medication Order 07/15/2021 07/16/2021 07/17/2021 ondansetron [...] RN) documented in this encounter Care Teams Food Preparer Relationship Specialty Start Date End Date Julio César Briseno MD PCP - General 10/01/16 Eren Cr MD Referring Physician Medical Oncology 11/25/18 Yohana Bowen MD Radiation Oncologist Radiation Oncology 11/25/18 Sabrina Willard NP [address] [place] [address] Nurse Practitioner Medical Oncology 08/17/20 11/26/21 documented as of this encounter
--- OUTSIDE RECORDS SUMMARY | 2024-06-26 02:09 | XMS_ITS | Encounter Summary ---
Author Organization [facility] Address [address] [place] [address] Phone Care Team Providers Care Shipping And Receiving Material Handler Name Role Phone Julio César Briseno MD Primary Care Provider Eren Cr MD Unavailable [phone] Yohana Bowen MD Unavailable Sabrina Willard NP Unavailable [phone] Encounter Details Date Type Department Care Team (Late st Contact Info) Description 08/10/2021 Orders Only [facility] Oncology [address] [facility] Advanced Medicine 7th [place] [address] [place] [address] Eren Cr MD [address] [facility] [address] [place] [address] Neuro-endocrine carcinoma (CMS/HCC) (HCC) (Primary Dx) Social [...] on file Legal Sex Female 2:41 PM DIETARY DIRECTOR Gender Identity Not on file Sexual Orientation Straight 02/19/2021 9: 29 AM CDT Occupation Industry Job Start Date Job End Date retired Not on file Not on file Not on file documented as of this encounter Plan of Treatment Not on file documented as of this encounter Results * Phosphorus (09/04/2021 11:00 AM DIETARY DIRECTOR) Pathologist [facility] Phosphorus, pl 2.7 2.3 - 4.5 mg/dL [facility] Comment:Testing performed by : [facility], [address] [place] [phone] Blood 09/04/2021 11:0 0 AM DIETARY DIRECTOR 09/04/2021 11:01 AM DIETARY DIRECTOR Eren Cr MD LAB BLOOD ORDERABLES Final Re sult Performing Organization Address City/[facility] Co de Phone Number [facility] Department [place] [address] * Magnesium (09/04/2021 11:00 AM DIETARY DIRECTOR) [facility] Magnesium 1.5 1.4 - 2.5 mg/dL [facility] Comment:Testing performed by : [facility], [address] [place] [phone] Blood 09/04/2021 11:0 0 AM DIETARY DIRECTOR 09/04/2021 11:01 AM DIETARY DIRECTOR Eren Cr MD LAB BLOOD ORDERABLES Final Re sult Performing Organization Address [facility] Co de Phone Number [facility] Department [place] [address] * (ABNORMAL) Comprehensive metabolic panel (09/04/2021 11:00 AM DIETARY DIRECTOR) [facility] Sodium 135 135 - 145 mmol/L [facility] Comment:Testing performed by : [facility], [address] [place] [phone] Potassium, pl 4.3 3.3 - 4.9 mmol/L [facility] Comment:Testing performed by : [facility], [address] [place] [phone] Chloride 99 97 - 110 mmol/L [facility] Comment:Testing performed by : [facility], [address] [place] [phone] CO2 25 22 - 32 mmol/L [facility] Comment:Testing performed by : [facility], [address] [place] [phone] Anion gap 11 2 - 15 mmol/L [facility] Comment:Testing performed by : [facility], [address] [place] [phone] BUN 19 8 - 25 mg/dL [facility] Comment:Testing performed by : [facility], [address] [place] [phone] Creatinine 1.55(H) 0.60 - 1.10 mg/dL [facility] Comment:Testing performed by : [facility], [address] [place] [phone] Glucose 121 70 - 199 mg/dL [facility]ER [...] performed by: [facility], [address] [place] [phone] Calcium 10.9(H) 8.5 - 10.3 mg/dL [facility] Comment:Testing performed by : [facility], [address] [place] [phone] Bilirubin, total 1.1 0.1 - 1.2 mg/dL [facility] Comment:Testing performed by : [facility], [address] [place] [phone] Protein, pl 7.2 6.5 - 8.5 g/dL [facility] Comment:Testing performed by : [facility], [address] [place] [phone] Albumin 4.4 3.5 - 5.0 g/dL [facility] Comment:Testing performed by : [facility], [address] [place] [phone] Alk phos 111 40 - 130 Units/L [facility] Comment:Testing performed by : [facility], [address] [place] [phone] ALT 45 7 - 45 Units/L [facility] Comment:Testing performed by : [facility], [address] [place] [phone] AST 60(H) 10 - 45 Units/L [facility] Comment:Testing performed by : [facility], [address] [place] [phone] Blood 09/04/2021 11:0 0 AM DIETARY DIRECTOR 09/04/2021 11:01 AM DIETARY DIRECTOR us Eren Cr MD LAB BLOOD ORDERABLES Final Re sult [facility] Department [place] [address] * (ABNORMAL) CBC with auto differential (09/04/2021 11:00 AM DIETARY DIRECTOR) WBC 4.0 3.8 - 9.8 K/cumm [facility] Comment:Testing performed by : [facility], [address] [place] [phone] Hgb 15.5(H) 12.1 - 15.1 g/dL [facility] Comment:Testing performed by : [facility], [address] [place] [phone] Hct 44.2 36.1 - 44.3 % [facility] Comment:Testing performed by : [facility], [address] [place] [phone] Plt 101(L) 140 - 440 K/cumm [facility] Comment:Testing performed by : [facility], [address] [place] [phone] MPV 8.4 6.8 - 10.4 fL [facility] Comment:Testing performed by : [facility], [address] [place], [place] [phone] RBC 5.06(H) 3.90 - 5.00 M/cumm [facility] Comment:Testing performed by : [facility], [address] [place], [place] [phone] MCV 87.5 80.0 - 97.6 fL [facility] Comment:Testing performed by : [facility], [address] [place], [place] [phone] MCH 30.6 26.7 - 33.7 pg [facility] Comment:Testing performed by : [address] [phone] MCHC 35.0 32.7 - 35.5 g/dL [facility] Comment:Testing performed by : [facility], [address] [place] [phone] RDW CV 14.6 11.8 - 14.6 % [facility] Comment:Testing performed by : [facility], [address] [place] [phone] NRBC abs 0.00 0.00 - 0.01 K/cumm [facility] Comment:Testing performed by : [address] [phone] Blood 09/04/2021 11:0 0 AM DIETARY DIRECTOR 09/04/2021 11:01 AM DIETARY DIRECTOR us Eren Cr MD LAB BLOOD ORDERABLES Final Re sult [facility] Department [place] [address] documented in this encounter Visit Diagnoses Diagnosis Neuro-endocrine carcinoma (HCC)- Primary Other malignant neoplasm of unspecified site documented in this encounter Orders Appointment Requests Count Last Ordered Date Fi rst Ordered Date ONCBCN CLINIC APPOINTMENT REQUEST 1 022 ONCBCN LAB APPOINTMENT 1 09/04/2021 documented in this encounter Care Teams Shipping And Receiving Material Handler Relationship Specialty Start Date End Date Julio César Briseno MD PCP - General 10/01/16 Eren Cr MD Referring Physician Medical Oncology 11/25/18 Yohana Bowen MD Radiation Oncologist Radiation Oncology 11/25/18 aSbrina Willard NP [address] [place] [address] Nurse Practitioner Medical Oncology 08/17/20 11/26/21 documented as of this encounter
--- OUTSIDE RECORDS SUMMARY | 2024-06-26 02:09 | XMS_ITS | Encounter Summary ---
Author Organization [facility] Address [address] [place] [address] Phone Care Team Providers Care Fittings Tightener Name Role Phone Julio César Briseno MD Primary Care Provider [phone] Eren Cr MD Unavailable [phone] Yohana Bowen MD Unavailable Sabrina Willard NP Unavailable [phone] Encounter Details Date Type Department Care Team (Late st Contact Info) Description 07/18/2021 Orders Only [facility] Oncology [address] [place] [address] Eren Cr MD [address] [facility] [address] [place] [address] Social History Tobacco Use Types Packs/Day Years [...] file Legal Sex Female 2:41 PM VENEER GLUER Gender Identity Not on file Sexual Orientation Straight 02/19/2021 9: 29 AM CDT Occupation Industry Job Start Date Job End Date retired Not on file Not on file Not on file documented as of this encounter Plan of Treatment Not on file documented as of this encounter Visit Diagnoses Not on filedocumented in this encounter Care Teams Fittings Tightener Relationship Specialty Start Date End Date Julio César Briseno MD PCP - General 10/01/16 Eren Cr MD Referring Physician Medical Oncology 11/25/18 Yohana Bowen MD Radiation Oncologist Radiation Oncology 11/25/18 Sabrina Willard NP [address] [place] [address] Nurse Practitioner Medical Oncology 08/17/20 11/26/21 documented as of this encounter
--- OUTSIDE RECORDS SUMMARY | 2024-06-26 02:09 | XMS_ITS | Encounter Summary ---
Author Organization [facility] Healthcare Address [address] [place] [address] Care Team Providers Care Yeast Washer Name Role Phone Julio César Briseno MD Primary Care Provider [phone] Eren Cr MD Unavailable Yohana Bowen MD Unavailable Sabrina Willard NP Unavailable Encounter Details Date Type Department Care Team (Latest Contact Info) Description 08/03/2021 5:41 PM CHIEF CONTROLLER - 08/03/2021 8:30 PM CHIEF CONTROLLER Hospital Encounter [facility] ([facility]) [facility] [place] [address] Eren Cr MD [facility] [address] [place] [address] Dehydration (Primary Dx); Pain Discharge Disposition: Discharge [...] file Legal Sex Female 2:41 PM CHIEF CONTROLLER Gender Identity Not on file Sexual Orientation Straight 02/19/2021 9: 29 AM CDT Occupation Industry Job Start Date Job End Date retired Not on file Not on file Not on file documented as of this encounter Last Filed Vital Signs Vital Sign Reading Time Taken Comments Blood Pressure 159/75 08/03/2021 8:25 PM CHIEF CONTROLLER Pulse 59 08/03/2021 8:25 PM CHIEF CONTROLLER Temperature 36.4 ??C (97.6 ??F) 08/03/2021 8:25 PM CS T Respiratory Rate 18 08/03/2021 8:25 PM CHIEF CONTROLLER Oxygen Saturation 95% 08/03/2021 8:25 PM CHIEF CONTROLLER Inhaled Oxygen Concentration - - Weight 78.4 kg (172 lb 12.8 oz) 08/03/2021 5:48 PM CHIEF CONTROLLER Height - - Body Mass Index 31.52 07/17/2021 2:15 PM CHIEF CONTROLLER documented in this encounter Discharge Diagnoses Diagnosis [...] site - UNSPECIFIED OSTEOARTHRITIS, UNSPECIFIED SITE Other alf (current) drug therapy - OTHER COLORED LEATHER SETTER (CURRENT) DRUG THERAPY Personal history of irradiation - PERSONAL HISTORY OF IRRADIATION Personal history of irradiation, presenting hazards to health documented in this encounter Discharge Instructions * Patient Instructions* Hola Heredia RN - 08/03/2021 8:17 PM CHIEF CONTROLLER .After 4:30 PM during the week, on weekends and holidays, call [phone] and ask to have the Row Boss Physician paged for you. Saturday through Saturday, 8 AM to 4:30 PM, call [phone] [facility] Oncology Physician at [facility] Medicine and ask for a member [...] any non-prescription medicine without your doctor's approval F CONTROLLER documented in this encounter Medications at Time [...] capsuleIndications :supplement Take 1 tablet by mouth center lead consultant before breakfast 07/04/2016 4 cholecalciferol (VITAMIN D-3) 2,000 unit capsule Take 1 capsule (2,000 Units total) by mouth daily 30 capsule 2 04/25/2019 3 cholestyramine (QUESTRAN) 4 gram packet Take 1 packet by mouth 3 (three) times a day with meals 270 packet 3 09/04/2019 2 clotrimazole-betam ethasone (LOTRISONE) cream Apply 1 Application topically daily as needed (rash) 4 coenzyme [id number] E 100-5 mg-unit capsuleIndications :supplement Take 1 tablet by mouth center lead consultant before breakfast 4 denosumab (XGEVA) 120 mg/1.7 [...] dose).?? Avoid Jas's Wort, grapefruit products and [place] oranges while on treatment. placed on hold [...] 08/03/2021 6:17 PM CST Oncology Progress Note [facility] Chief Complaint: fatigue, weakess, dizziness Subjective HPI: La Chung is a 70 y.o. female patient of Dr. Cr diagnosed with metastatic neuroendocrine tumorwith liver metastases (10/24/2015) currently on study [id number] - [facility] - GI - [id number] - Step 1 and Step 2 Crossover - Cabozantinib/Placebo OR Open label Cabozantinib. 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 She presented to the [facility] with her after 3 days of fatigue, [...] 41 (Planned for 08/14/2021) Oncology Treatment (2): [id number] - [facility] - GI - [id number] - Step 1 and Step 2 Crossover [...] ??? JOINT REPLACEMENT Left 2014 ? ? MD REMOVAL OF TONSILS,<12 Y/O Tonsillectomy - (Added by TW Conv) ??? MD TOTAL ABDOM HYSTERECTOMY Hysterectomy - (Added by [...] mg capsule Take 1 tablet by mouth center lead consultant before breakfast ??? cholecalciferol (VITAMIN D-3) 2,000 unit capsule Take 1 capsule (2,000 Units total) by mouth daily (Patient taking differently: Take 2,000 Units by mouth daily ) 30 capsule 2 ??? cholestyramine (QUESTRAN) 4 gram packet Take 1 packet by mouth 3 (three) times a day with azhth690 packet 3 ??? clotrimazole-betamethasone (LOTRISONE) cream clotrimazole-betamethasone 1 %- 0.05 % topical cream APPLY EXTERNALLY TO ABDOMEN TWICE DAILY NEEDED ??? coenzyme I41-[id number] E (CO Q-10, WITH VIT E,) 100-5 [...] taking differently: Take 30 mg by mouth center lead consultant before breakfast ) 30 capsule 2 ??? [...] 04/24/2021) 90 tablet 11 ??? [id number] cabozantinib/placebo (/[id number]) 20 mg tablet Take 60 mg by mouth daily Take on an empty stomach (no food for 2 hours before and 1 hour after each dose).?? Avoid [place]'sWort, grapefruit products and [place] oranges while on treatment. ??? loperamide HCl (IMODIUM A-D ORAL) ??? montelukast (SINGULAIR) 10 mg tablet Take 10 mg by mouth as needed (Patient not taking: Reported on 06/19/2021) ??? octreotide (SandoSTATIN) 100 mcg/mL injection Sandostatin ??? octreotide (SandoSTATIN) 50 mcg/mL (1 mL) syringe every 30 (thirty) days ??? olmesartan-hydrochlorothiazide (BENICAR HCT) 20-12.5 mg per tablet Take 0.5 tablets by mouth center lead consultant before breakfast decrease dosage to 0.5 tablet [...] and Plan: Mrs Chung presented to the [facility] after 3 days of fatigue, weakess, dizziness. [...] 08/07/[address] Portia Maxwell, MSN, PROSTHETIST, AGACNP-BC, CCRN Cancer [facility] F CONTROLLER documented in this encounter Nursing Notes * Hola Heredia, RN - 08/03/2021 8:30 PM CST Pt arrived to [facility] for fatigue and SMALL ELECTRIC ENGINE TECHNICIAN eval. PIV started-- CMP, CBC, Lactate, and T&S collected. 1.5 L NS bolus initiated and tolerated well. PIV flushed and removed. AVS discussed w/ pt and spouse. Pt discharged by WC accompanied by spouse. F CONTROLLER documented in this encounter Plan of Treatment Not on file documented as of this encounter Procedures Procedure Name Priority Date/Time Associated Diagnosis Comments LACTATE STAT 08/03/2021 6:27 PM CHIEF CONTROLLER EGFR STAT 08/03/2021 6:27 PM CHIEF CONTROLLER DIFFERENTIAL AUTO STAT 08/03/2021 6:2 7 PM CHIEF CONTROLLER CBC WITH AUTO DIFFERENTIAL STAT 08/03/2021 6:27 PM CHIEF CONTROLLER TYPE AND SCREEN STAT 08/03/2021 6:27 PM CHIEF CONTROLLER PHOSPHORUS STAT 08/03/2021 6:27 PM CHIEF CONTROLLER MAGNESIUM STAT 08/03/2021 6:27 PM CHIEF CONTROLLER COMPREHENSIVE METABOLIC PANEL STAT 08/03/2021 6:27 PM CHIEF CONTROLLER documented in this encounter Results * (ABNORMAL) eGFR (08/03/2021 6:27 PM CHIEF CONTROLLER) eGFR 52(L) 90 - 130 mL/min/1. 73 m2 JASON [facility] Comment: Interpretive Data Reference Interval [...] last reviewed 2021. Blood 08/03/2021 6:27 PM CHIEF CONTROLLER 08/03/2021 6:38 PM CHIEF CONTROLLER us Portia Maxwell SMALL ELECTRIC ENGINE TECHNICIAN LAB BLOOD ORDERABLES Final Res ult [facility] Department [place] [address] * (ABNORMAL) Differential, auto (08/03/2021 6:27 PM CHIEF CONTROLLER) Neutrophil abs 3.3 1.7 - 6.5 K/cumm [facility] Imm gran abs 0.0 0.0 - 0.1 K/cumm [facility] Lymphocyte abs 0.6(L) 0.8 - 3.3 K/cumm [facility] Monocyte abs 0.4 0.2 - 0.8 K/cumm [facility] Eosinophil abs 0.1 0.0 - 0.5 K/cumm [facility] Basophil abs 0.0 0.0 - 0.1 K/cumm [facility] Neutrophil pct 72.6 % [facility] Comment: Interpretive Data Percent cell count reference ranges are not reported, since discordance with absolute values may lead to misinterpretation of CBC data. Current Interpretive Data was last revised on 2017. Imm gran pct 0.2 % [facility] Comment: Interpretive Data Percent cell count reference ranges are not reported, since discordance with absolute values may lead to misinterpretation of CBC data. Current Interpretive Data was last revised on 2017. Lymphocyte pct 13.6 % [facility] Comment: Interpretive Data Percent cell count reference ranges are not reported, since discordance with absolute values may lead to misinterpretation of CBC data. Current Interpretive Data was last revised on 2017. Monocyte pct 9.8 % [facility] Comment: Interpretive Data Percent cell count reference ranges are not reported, since discordance with absolute values may lead to misinterpretation of CBC data. Current Interpretive Data was last revised on 2017. Eosinophil pct 3.1 % [facility] Comment: Interpretive Data Percent cell count reference ranges are not reported, since discordance with absolute values may lead to misinterpretation of CBC data. Current Interpretive Data was last revised on 2017. Basophil pct 0.7 % [facility] Comment: Interpretive Data Percent cell count reference ranges are not reported, since discordance with absolute values may lead to misinterpretation of CBC data. Current Interpretive Data was last revised on 2017. Blood 08/03/2021 6:27 PM CHIEF CONTROLLER 08/03/2021 6:45 PM CHIEF CONTROLLER Portia Maxwell SMALL ELECTRIC ENGINE TECHNICIAN LAB BLOOD ORDERABLES Final Res ult [facility] [place] [address] * Type and screen (08/03/2021 6:27 PM CHIEF CONTROLLER) Yolande, indirect Negative [facility] ABO Rh AB Positive [facility] Blood 08/03/2021 6:27 PM CHIEF CONTROLLER 08/03/2021 6:48 PM CHIEF CONTROLLER Narrative [facility] - 08/03/2021 7:36 PM CHIEF CONTROLLER Has the patient had Daratumumab or Isatuximab in the past 6 months?->Unknown Portia S. Hans SMALL ELECTRIC ENGINE TECHNICIAN LAB BLOOD BANK TEST ORDERABLES Final Result [facility] [place] [address] * Phosphorus (08/03/2021 6:27 PM CHIEF CONTROLLER) Phosphorus, pl 2.6 2.3 - 4.5 mg/dL [facility] Blood 08/03/2021 6:27 PM CHIEF CONTROLLER 08/03/2021 6:38 PM CHIEF CONTROLLER Portia SClark Bynumk SMALL ELECTRIC ENGINE TECHNICIAN LAB BLOOD ORDERABLES Final Res ult Performing Organization Address City/[facility] Co de Phone Number [facility] Department [place] [address] * Magnesium (08/03/2021 6:27 PM CHIEF CONTROLLER) Pathologist [facility] Magnesium 1.8 1.4 - 2.5 mg/dL [facility] Blood 08/03/2021 6:27 PM CHIEF CONTROLLER 08/03/2021 6:38 PM CHIEF CONTROLLER Portia SClark Bynumk SMALL ELECTRIC ENGINE TECHNICIAN LAB BLOOD ORDERABLES Final Res ult Performing Organization Address [facility] Co de Phone Number [facility] Department [place] [address] * (ABNORMAL) Lactate (08/03/2021 6:27 PM CHIEF CONTROLLER) Pathologist [facility] Lactate 2.2(H) 0.7 - 2.0 mmol/L [facility] Blood 08/03/2021 6:27 PM CHIEF CONTROLLER 08/03/2021 6:38 PM CHIEF CONTROLLER Portia S. Deck SMALL ELECTRIC ENGINE TECHNICIAN LAB BLOOD ORDERABLES Final Res ult Performing Organization Address City/[facility] Co de Phone Number [facility] [place] [address] * (ABNORMAL) Comprehensive metabolic panel (08/03/2021 6:27 PM CHIEF CONTROLLER) Pathologist [facility] Sodium 139 135 - 145 mmol/L [facility] Potassium, pl 5.1(H) 3.3 - 4.9 mmol/L [facility] Comment:Hemolyzed; Potassium value may be falsely elevated by as much as 0.6-1.0 mmol/L. Suggest redraw and reanalysis. Chloride 106 97 - 110 mmol/L [facility] CO2 24 22 - 32 mmol/L [facility] Anion gap 9 2 - 15 mmol/L [facility] BUN 12 8 - 25 mg/dL [facility] Creatinine 1.12(H) 0.60 - 1.10 mg/dL [facility] Glucose 141 70 - 199 mg/dL [facility] Comment: Interpretive Data Fasting [...] 2017. Calcium 10.0 8.5 - 10.3 mg/dL [facility] Bilirubin, total 0.5 0.1 - 1.2 mg/dL [facility] Protein, pl 6.7 6.5 - 8.5 g/dL [facility] Albumin 3.8 3.5 - 5.0 g/dL [facility] Alk phos 97 40 - 130 Units/L [facility] ALT 50(H) 7 - 45 Units/L [facility] AST 75(H) 10 - 45 Units/L [facility] Comment:Hemolyzed; result ma y be falsely elevated Blood 08/03/2021 6:27 PM CHIEF CONTROLLER 08/03/2021 6:38 PM CHIEF CONTROLLER us Portia Maxwell SMALL ELECTRIC ENGINE TECHNICIAN LAB BLOOD ORDERABLES Final Res ult [facility] Department [place] [address] * (ABNORMAL) CBC with auto differential (08/03/2021 6:27 PM CHIEF CONTROLLER) WBC 4.5 3.8 - 9.9 K/cumm [facility] Hgb 14.4 11.9 - 15.5 g/dL [facility] Hct 40.8 35.6 - 45.5 % [facility] Plt 127(L) 150 - 400 K/cumm [facility] MPV 10.9 9.1 - 12.3 fL [facility] RBC 4.69 3.90 - 5.20 M/cumm [facility] MCV 87.0 81.3 - 96.4 fL [facility] MCH 30.7 27.1 - 33.3 pg [facility] MCHC 35.3 32.3 - 35.7 g/dL [facility] RDW CV 13.1 11.1 - 14.9 % [facility] RDW SD 40.8 35.7 - 48.1 fL [facility] NRBC abs 0.00 0.00 - 0.01 K/cumm [facility] Blood 08/03/2021 6:27 PM CHIEF CONTROLLER 08/03/2021 6:45 PM CHIEF CONTROLLER Portia Maxwell SMALL ELECTRIC ENGINE TECHNICIAN LAB BLOOD ORDERABLES Final Res ult [facility] Department [place] [address] documented in this encounter Visit Diagnoses Diagnosis Dehydration- Primary Pain Generalized pain documented in this encounter Administered Medications Inactive Administered Medications - up to 3 most recent administrations Medication Order MAR Action Action Date Dose Rate Site acetaminophen (TYLENOL) tablet 650 mg 650 mg, oral, Once, On Lydia 08/03/21 at 1845, For 1 doseIndications:Pain Given 08/03/2021 6:24 PM CHIEF CONTROLLER 650 mg sodium chloride 0.9% bolus 1,000 mL 1,000 mL, intravenous, at 500 mL/hr, Administer over 2 Hours, Once, On Lydia 08/03/21 at 1835, For 1 doseIndications:Dehydration New Bag 08/03/2021 6:25 PM CHIEF CONTROLLER 1,000 mL 500 mL/hr sodium chloride 0.9% bolus 500 mL 500 mL, intravenous, at 500 mL/hr, Administer over 1 Hours, Once, On Lydia 08/03/21 at 2015, For 1 doseIndications:Dehydration New Bag 08/03/2021 7:48 PM CHIEF CONTROLLER 500 mL 500 mL/hr documented in this encounter Active and Recently Administered Medications Times are shown in CHIEF CONTROLLER. Scheduled Medication Order 08/01/2021 08/02/2021 08/03/2021 acetaminophen [...] RN) documented in this encounter Care Teams Yeast Washer Relationship Specialty Start Date End Date Julio César Briseno MD PCP - General 10/01/16 Eren Cr MD Referring Physician Medical Oncology 11/25/18 Yohana Bowen MD Radiation Oncologist Radiation Oncology 11/25/18 Sabrina Willard SMALL ELECTRIC ENGINE TECHNICIAN [address] [place] [address] Nurse Practitioner Medical Oncology 08/17/20 11/26/21 documented as of this encounter
--- OUTSIDE RECORDS SUMMARY | 2024-06-26 02:09 | XMS_ITS | Encounter Summary ---
Author Organization [facility] Address [address] [place] [address] Phone Care Team Providers Care Pace Analyst Name Role Phone Julio César Briseno MD Primary Care Provider [phone] Eren Cr MD Unavailable [phone] Yohana Bowen MD Unavailable Sabrina Willard NP Unavailable [phone] Encounter Details Date Type Department Care Team (Late st Contact Info) Description 08/04/2021 Orders Only [facility] Oncology [address] [facility] [address] 7th [place] [address] [place] [address] Elaine Coy Neuroendocrine carcinoma (CMS/HCC) [...] on file Legal Sex Female 2:41 PM PROFESSOR/NURSE ANESTHETIST Gender Identity Not on file Sexual Orientation [...] 08/07/2021 documented in this encounter Care Teams Pace Analyst Relationship Specialty Start Date End Date Julio César Briseno MD PCP - General 10/01/16 Eren Cr MD Referring Physician Medical Oncology 11/25/18 Yohana Bowen MD Radiation Oncologist Radiation Oncology 11/25/18 Sabrina Willard NP [address] [place] [address] Nurse Practitioner Medical Oncology 08/17/20 11/26/21 documented as of this encounter
--- OUTSIDE RECORDS SUMMARY | 2024-06-26 02:09 | XMS_ITS | Encounter Summary ---
Author Organization [facility] Address [address] [place] [address] Phone Care Team Providers Care Poultry Offal Icer Name Role Phone Julio César Briseno MD Primary Care Provider Eren Cr MD Unavailable [phone] Yohana Bowen MD Unavailable Sabrina Willard NP Unavailable Encounter Details Date Type Department Care Team (Late st Contact Info) Description 08/17/2021 Orders Only [facility] Oncology [address] [facility] [address]th [place] [address] [place] [address] Eren Cr MD [address] [facility] [address] [place] [address] Neuro-endocrine carcinoma (CMS/HCC) (HCC) (Primary Dx) Social [...] on file Legal Sex Female 2: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
--- OUTSIDE RECORDS SUMMARY | 2024-06-26 02:09 | XMS_ITS | Encounter Summary ---
Author Organization [facility] Address [address] [place] [address] Phone Care Team Providers Care Chemical Engineering Teacher Name Role Phone Julio César Briseno MD Primary Care Provider Eren Cr MD Unavailable Yohana Bowen MD Unavailable Sabrina Willard NP Unavailable [phone] Reason for Visit * Reason Onset Date Comments Fatigue 08/03/2021 Encounter Details Date Type Department Care Team (Late st Contact Info) Description 08/03/2021 Telephone [facility] Oncology [address] [facility] [address]th [place] [address] [place] [address] Eren Cr MD [address] [facility] [address] [place] [address] Fatigue Social History Tobacco Use Types Packs/Day [...] file Legal Sex Female 2:41 PM MERCHANDISE EXECUTION LEADER Gender Identity Not on file Sexual [...] to arrive at 5:30. Patient verbalizes understanding. HANDISE EXECUTION LEADER documented in this encounter Plan of Treatment Not on file documented as of this encounter Visit Diagnoses Not on filedocumented in this encounter Care Teams Chemical Engineering Teacher Relationship Specialty Start Date End Date Julio César Briseno MD PCP - General 10/01/16 Eren Cr MD Referring Physician Medical Oncology 11/25/18 Yohana Bowen MD Radiation Oncologist Radiation Oncology 11/25/18 Sabrina Willard NP [address] [place] [address] Nurse Practitioner Medical Oncology 08/17/20 11/26/21 documented as of this encounter
--- OUTSIDE RECORDS SUMMARY | 2024-06-26 02:09 | XMS_ITS | Encounter Summary ---
Author Organization [facility] Address [address] [place] [address] Phone Care Team Providers Care Senior Energy Trader Name Role Phone Julio César Briseno MD Primary Care Provider [phone] Eren Cr MD Unavailable [phone] Yohana Bowen MD Unavailable Sabrina Willard NP Unavailable [phone] Encounter Details Date Type Department Care Team (Late st Contact Info) Description 07/17/2021 Orders Only [facility] Oncology [address] [place] [address] Rupali Kohler RN Social History Tobacco Use [...] file Legal Sex Female 2:41 PM CAMP COOK Gender Identity Not on file Sexual Orientation Straight 02/19/2021 9: 29 AM CDT Occupation Industry Job Start Date Job End Date retired Not on file Not on file Not on file documented as of this encounter Plan of Treatment Not on file documented as of this encounter Visit Diagnoses Not on filedocumented in this encounter Care Teams Senior Energy Trader Relationship Specialty Start Date End Date Julio César Briseno MD PCP - General 10/01/16 Eren Cr MD Referring Physician Medical Oncology 11/25/18 Yohana Bowen MD Radiation Oncologist Radiation Oncology 11/25/18 Sabrina Willard NP [address] [place] [address] Nurse Practitioner Medical Oncology 08/17/20 11/26/21 documented as of this encounter
--- OUTSIDE RECORDS SUMMARY | 2024-06-26 02:09 | XMS_ITS | Encounter Summary ---
Author Organization [facility] Address [address] [place] [address] Phone Care Team Providers Care Eyeglass Lens Cutter Name Role Phone Julio César Briseno MD Primary Care Provider [phone] Eren Cr MD Unavailable [phone] Yohana Bowen MD Unavailable Sabrina Willard NP Unavailable [phone] Encounter Details Date Type Department Care Team (Late st Contact Info) Description 07/18/2021 Orders Only [facility] Oncology [address] [place] [address] Eren Cr MD [address] [address] [place] [address] Neuro-endocrine carcinoma (CMS/HCC) (HCC) (Primary Dx) Social [...] file Legal Sex Female 2:41 PM SIZE STAMPER Gender Identity Not on file Sexual Orientation [...] site documented in this encounter Care Teams Eyeglass Lens Cutter Relationship Specialty Start Date End Date Julio César Briseno MD PCP - General 10/01/16 Eren Cr MD Referring Physician Medical Oncology 11/25/18 Yohana Bowen MD Radiation Oncologist Radiation Oncology 11/25/18 Sabrina Willard NP [address] [place] [address] Nurse Practitioner Medical Oncology 08/17/20 11/26/21 documented as of this encounter
--- OUTSIDE RECORDS SUMMARY | 2024-06-26 02:09 | XMS_ITS | Encounter Summary ---
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 Gender Identity Not on file Sexual Orientation Straight 02/19/2021 9: 29 AM CDT Occupation Industry Job Start Date Job End Date retired Not on file Not on file Not on file documented as of this encounter Plan of Treatment Not on file documented as of this encounter Visit Diagnoses Not on filedocumented in this encounter Care Teams Mophead Sewer Relationship Specialty Start Date End Date Julio César Briseno MD PCP - General 10/01/16 Eren Cr MD Referring Physician Medical Oncology 11/25/18 Yohana Bowen MD Radiation Oncologist Radiation Oncology 11/25/18 Sabrina Willard NP [address] [place] [address] Nurse Practitioner Medical Oncology 08/17/20 11/26/21 documented as of this encounter
--- OUTSIDE RECORDS SUMMARY | 2024-06-26 02:09 | XMS_ITS | Encounter Summary ---
Author Organization [facility] Address [address] [place] [address] Phone Care Team Providers Care Sat Act Instructor Name Role Phone Julio César Briseno MD Primary Care Provider Eren Cr MD Unavailable Yohana Bowen MD Unavailable Sabrina Willard NP Unavailable [phone] Encounter Details Date Type Department Care Team (Late st Contact Info) Description 07/17/2021 Orders Only [facility] Oncology [address] [facility] Advanced Medicine 7th [place] [address] [place] [address] Eren Cr MD [address] [facility] [address] [place] [address] Social History Tobacco Use Types Packs/Day Years [...] file Legal Sex Female 2:41 PM 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 Gender Identity Not on file Sexual Orientation Straight 02/19/2021 9: 29 AM CDT Occupation Industry Job Start Date Job End Date retired Not on file Not on file Not on file documented as of this encounter Plan of Treatment Not on file documented as of this encounter Visit Diagnoses Not on filedocumented in this encounter Care Teams Sat Act Instructor Relationship Specialty Start Date End Date Julio César Briseno MD PCP - General 10/01/16 Eren Cr MD Referring Physician Medical Oncology 11/25/18 Yohnaa Bowen MD Radiation Oncologist Radiation Oncology 11/25/18 Sabrina Willard NP [address] [place] [address] Nurse Practitioner Medical Oncology 08/17/20 11/26/21 documented as of this encounter
--- OUTSIDE RECORDS SUMMARY | 2024-06-26 02:09 | XMS_ITS | Encounter Summary ---
Author Organization [facility] Address [address] [place] [address] Phone Care Team Providers Care Facsimile Operator Name Role Phone Julio César Briseno MD Primary Care Provider [phone] Eren Cr MD Unavailable [phone] Yohana Bowen MD Unavailable Sabrina Willard NP Unavailable [phone] Reason for Visit * Reason Onset Date Comments nausea/vomiting/dizziness 08/11/2021 Encounter Details Date Type Department Care Team (Late st Contact Info) Description 08/11/2021 Telephone [facility] Oncology [address] [facility] Advanced Medicine 7th [place] [address] [place] [address] Eren Cr MD [address] [facility] [address] [place] [address] nausea/vomiting/dizzin ess Social History Tobacco Use Types [...] file Legal Sex Female 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 CAL BILL PROCESSOR documented in this encounter Plan of Treatment Not on file documented as of this encounter Visit Diagnoses Not on filedocumented in this encounter Care Teams Facsimile Operator Relationship Specialty Start Date End Date Julio César Briseno MD PCP - General 10/01/16 rEen Cr MD Referring Physician Medical Oncology 11/25/18 Yohana Bowen MD Radiation Oncologist Radiation Oncology 11/25/18 Sabrina Willard, CECILIA [address] [place] [address] Nurse Practitioner Medical Oncology 08/17/20 11/26/21 documented as of this encounter
--- OUTSIDE RECORDS SUMMARY | 2024-06-26 02:09 | XMS_ITS | Encounter Summary ---
Author Organization 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 Eren Cr MD [address] [facility] [address] [place] [address] Phone: tel: fax: [facility] [address] [facility] Advanced Medicine 7th [place] [address] Phone: tel: Referral ID Status Reason Start Date Expiration Date Visits Re quested Visits Authorized [id number] Closed 06/21/2021 06/26/2024 1 99 Encounter Details Date Type Department Care Team (Late st Contact Info) Description 08/07/2021 2:30 PM VISUALLY IMPAIRED TEACHER Office Visit [facility] Oncology [address] [facility] 7th [place] [address] [place] [address] Eren Cr MD [address] [facility] [address] [place] [address] Neuro-endocrine carcinoma (CMS/HCC) (HCC) (Primary Dx); Bone [...] on file Legal Sex Female 2:41 PM 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 TEACHER Gender Identity Not on file Sexual Orientation Straight 02/19/2021 9: 29 AM CDT Occupation Industry Job Start Date Job End Date retired Not on file Not on file Not on file documented as of this encounter Last Filed Vital Signs Vital Sign Reading Time Taken Comments Blood Pressure 157/86 08/07/2021 3:20 PM VISUALLY IMPAIRED TEACHER taken by team Pulse 76 08/07/2021 2:23 PM VISUALLY IMPAIRED TEACHER Temperature 36.2 ??C (97.2 ??F) 08/07/2021 2 :23 PM VISUALLY IMPAIRED TEACHER Respiratory Rate 18 08/07/2021 2:23 PM VISUALLY IMPAIRED TEACHER Oxygen Saturation 98% 08/07/2021 2:2 3 PM VISUALLY IMPAIRED TEACHER Inhaled Oxygen Concentration - - Weight 80 kg (176 lb 6.4 oz) 08/07/2021 2:26 PM VISUALLY IMPAIRED TEACHER Height - - Body Mass Index 32.17 07/17/2021 2:15 PM VISUALLY IMPAIRED TEACHER documented in this encounter Progress Notes * [...] time, she also underwent right colectomy in [facility] [place] by Dr. Greyson Reeves. Biopsy [...] No rashes over exposed skin NEURO: A&Ox4, data technical lead grossly intact by conversation, moving all extremities [...] with cabozantinib/placebo. Eren Cr MD Medical Oncology ALLY IMPAIRED TEACHER documented in this encounter Plan of [...] 022 documented in this encounter Care Teams Orthopedic Technician Relationship Specialty Start Date End Date Julio César Briseno MD PCP - General 10/01/16 Eren Cr MD Referring Physician Medical Oncology 11/25/18 Yohana Bowen MD Radiation Oncologist Radiation Oncology 11/25/18 Sabrina Willard NP [address] [place] [address] Nurse Practitioner Medical Oncology 08/17/20 11/26/21 documented as of this encounter
--- OUTSIDE RECORDS SUMMARY | 2024-06-26 02:09 | XMS_ITS | Encounter Summary ---
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
--- OUTSIDE RECORDS SUMMARY | 2024-06-26 02:09 | XMS_ITS | Encounter Summary ---
Author Organization [facility] Address [address] [place] [address] Phone Care Team Providers Care Spray Crew Name Role Phone Julio César Briseno MD Primary Care Provider [phone] Eren Cr MD Unavailable [phone] Yohana Bowen MD Unavailable Sabrina Willard NP Unavailable [phone] Reason for Visit * Episode Based Medications (Routine) - Closed Specialty Diagnoses / Procedures Referred By Contac t Referred To Contact Diagnoses Neuro-endocrine carcinoma (HCC) Procedures study [id number] phase III cabozantinib Eren Cr MD [address] [facility] [address] [place] [address] Phone: tel: fax: [facility] [address] [facility] Advanced Medicine 7th [place] [address] Phone: tel: Referral ID Status Reason Start Date Expiration Date Visits Re quested Visits Authorized [id number] Closed 06/21/2021 06/26/2024 1 99 Encounter Details Date Type Department Care Team (Late st Contact Info) Description 08/07/2021 2:00 PM SACK REPAIRER Lab [facility] Oncology [address] [facility] 7th [place] [address] [place] [phone] Neuro-endocrine carcinoma (CMS/HCC) (HCC); Neuroendocrine carcinoma (CMS/HCC) [...] file Legal Sex Female 2:41 PM SACK REPAIRER Gender Identity Not on file Sexual Orientation Straight 02/19/2021 9: 29 AM CDT Occupation Industry Job Start Date Job End Date retired Not on file Not on file Not on file documented as of this encounter Plan of Treatment Not on file documented as of this encounter Procedures Procedure Name Priority Date/Time Associated Diagnosis Comments EGFR STAT 08/07/2021 2:12 PM SACK REPAIRER Neuro-endocrine carcinoma (CMS/HCC) (HCC) DIFFERENTIAL AUTO STAT 08/07/2021 2:1 2 PM SACK REPAIRER Neuro-endocrine carcinoma (CMS/HCC) (HCC) CBC WITH AUTO DIFFERENTIAL STAT 08/07/2021 2:12 PM SACK REPAIRER Neuro-endocrine carcinoma (CMS/HCC) (HCC) PHOSPHORUS STAT 08/07/2021 2:12 PM SACK REPAIRER Neuro-endocrine carcinoma (CMS/HCC) (HCC) MAGNESIUM STAT 08/07/2021 2:12 PM SACK REPAIRER Neuro-endocrine carcinoma (CMS/HCC) (HCC) COMPREHENSIVE METABOLIC PANEL STAT 08/07/2021 2:12 PM SACK REPAIRER Neuro-endocrine carcinoma (CMS/HCC) (HCC) documented in this encounter Results * (ABNORMAL) eGFR (08/07/2021 2:12 PM SACK REPAIRER) eGFR 63(L) 90 - 130 mL/min/1. 73 [...] performed by: [facility], [address] [place] [phone] Blood 08/07/2021 2:12 PM SACK REPAIRER 08/07/2021 2:15 PM SACK REPAIRER us Eren Cr MD LAB BLOOD ORDERABLES Final Re sult JASON [facility] Department [place] [address] * (ABNORMAL) Differential, auto (08/07/2021 2:12 PM SACK REPAIRER) Pathologist [facility] Neutrophil abs 3.1 1.8 - 6.6 K/cumm [facility] Comment:Testing performed by : [facility], [address] [place] [phone] Lymphocyte abs 0.6(L) 1.2 - 3.3 K/cumm [facility] Comment:Testing performed by : [facility], [address] [place] [phone] Monocyte abs 0.3 0.2 - 1.2 K/cumm [facility] Comment:Testing performed by : [facility], [address] [place] [phone] Eosinophil abs 0.1 0.0 - 0.5 K/cumm [facility] Comment:Testing performed by : [facility], [address] [place] [phone] Basophil abs 0.0 0.0 - 0.2 K/cumm [facility] Comment:Testing performed by : [facility], [address] [place] [phone] Neutrophil pct 76.3 % [facility] Comment: Interpretive Data Percent cell count reference ranges are not reported, since discordance with absolute values may lead to misinterpretation of CBC data. Current Interpretive Data was last revised on 2017. Testing performed by: [facility], [address] [place] [phone] Lymphocyte pct 13.5 % [facility] Comment: Interpretive Data Percent cell count reference ranges are not reported, since discordance with absolute values may lead to misinterpretation of CBC data. Current Interpretive Data was last revised on 2017. Testing performed by: [facility], [address] [place] [phone] Monocyte pct 7.2 % [facility] Comment:Testing performed by : [facility], [address] [place] [phone] Eosinophil pct 2.4 % [facility] Comment:Testing performed by : [facility], [address] [place] [phone] Basophil pct 0.6 % [facility] Comment:Testing performed by : [facility], [address] [place] [phone] Blood 08/07/2021 2:12 PM SACK REPAIRER 08/07/2021 2:15 PM SACK REPAIRER us Eren Cr MD LAB BLOOD ORDERABLES Final Re sult [facility] Department [place] [address] * (ABNORMAL) CBC with auto differential (08/07/2021 2:12 PM SACK REPAIRER) WBC 4.1 3.8 - 9.8 K/cumm [facility] Comment:Testing performed by : [facility], [address] [place] [phone] Hgb 14.2 12.1 - 15.1 g/dL [facility]ON [facility] Comment:Testing performed by : [address] [phone] Hct 40.4 36.1 - 44.3 % [facility]ON [facility]ACK Comment:Testing performed by : [address] [phone] Plt 103(L) 140 - 440 K/cumm JASON BLACK Comment:Testing performed by : [address] [phone] MPV 8.1 6.8 - 10.4 fL CERMINNIE BLACK Comment:Testing performed by : [address] [phone] RBC 4.60 3.90 - 5.00 M/cumm JASON BLACK Comment:Testing performed by : [address] [phone] MCV 87.8 80.0 - 97.6 fL [facility]ON [facility] Comment:Testing performed by : [address] [phone] MCH 30.9 26.7 - 33.7 pg CERMINNIE [facility] Comment:Testing performed by : [address] [address] MCHC 35.2 32.7 - 35.5 g/dL JASON BLACK Comment:Testing performed by : [address] [address] RDW CV 13.5 11.8 - 14.6 % J[facility]ON BLACK Comment:Testing performed by : [facility], [address] [place] [phone] NRBC abs 0.00 0.00 - 0.01 K/cumm JASON BLACK Comment:Testing performed by : [facility], [address] [place] [phone] Blood 08/07/2021 2:12 PM SACK REPAIRER 08/07/2021 2:15 PM SACK REPAIRER us Eren Cr MD LAB BLOOD ORDERABLES Final Re sult [facility] Department [place] [address] * (ABNORMAL) Comprehensive metabolic panel (08/07/2021 2:12 PM SACK REPAIRER) Sodium 139 135 - 145 mmol/L [facility]ON BL[facility] Comment:Testing performed by : [facility], [address] [place] [phone] Potassium, pl 4.2 3.3 - 4.9 mmol/L [facility]ON BLACK Comment:Testing performed by : [facility], [address] [place] [phone] Chloride 103 97 - 110 mmol/L [facility]ACK Comment:Testing performed by : [facility], [address] [place] [phone] CO2 29 22 - 32 mmol/L [facility] Comment:Testing performed by : [facility], [address] [place] [phone] Anion gap 7 2 - 15 mmol/L [facility]ON BLACK Comment:Testing performed by : [facility], [address] [place] [phone] BUN 9 8 - 25 mg/dL J[facility]ON BLACK Comment:Testing performed by : [facility], [address] [place] [phone] Creatinine 0.96 0.60 - 1.10 mg/dL JASON BLACK Comment:Testing performed by : [facility], [address] [place] [phone] Glucose 111 70 - 199 mg/dL CERNER [...] performed by: [facility], [address] [place] [phone] Calcium 10.6(H) 8.5 - 10.3 mg/dL [facility] Comment:Testing performed by : [address] [address] Bilirubin, total 0.6 0.1 - 1.2 mg/dL C[facility]ER [facility] Comment:Testing performed by : [facility], [address] [place] [phone] Protein, pl 6.7 6.5 - 8.5 g/dL [facility] Comment:Testing performed by : [address] [address] Albumin 4.3 3.5 - 5.0 g/dL [facility] Comment:Testing performed by : [address] [address] Alk phos 107 40 - 130 Units/L [facility] Comment:Testing performed by : [address] [phone] ALT 33 7 - 45 Units/L [facility] Comment:Testing performed by : [address] [address] AST 42 10 - 45 Units/L [facility] Comment:Testing performed by : [address] [phone] Blood 08/07/2021 2:1 2 PM SACK REPAIRER 08/07/2021 2:15 PM SACK REPAIRER Result [facility] Eren Cr MD LAB BLOOD ORDERABLES Final Re sult Performing Organization Address [facility] [place] [address] * Magnesium (08/07/2021 2:12 PM SACK REPAIRER) Magnesium 1.6 1.4 - 2.5 mg/dL [facility] Comment:Testing performed by : [facility], [address] [place] [phone] Blood 08/07/2021 2:12 PM SACK REPAIRER 08/07/2021 2:15 PM SACK REPAIRER Result [facility] Eren Cr MD LAB BLOOD ORDERABLES Final Re sult Performing Organization Address [facility] [place] [address] * Phosphorus (08/07/2021 2:12 PM SACK REPAIRER) Phosphorus, pl 2.4 2.3 - 4.5 mg/dL [facility] Comment:Testing performed by : [facility], [address] [place] [phone] Blood 08/07/2021 2:12 PM SACK REPAIRER 08/07/2021 2:15 PM SACK REPAIRER Result [facility] Eren Cr MD LAB BLOOD ORDERABLES Final Re sult Performing Organization Address [facility] [place] [address] documented in this encounter Visit [...] 08/07/2021 documented in this encounter Care Teams Spray Crew Relationship Specialty Start Date End Date Julio César Briseno MD PCP - General 10/01/16 Eren Cr MD Referring Physician Medical Oncology 11/25/18 Yohana Bowen MD Radiation Oncologist Radiation Oncology 11/25/18 Sabrina Willard NP [address] [place] [address] Nurse Practitioner Medical Oncology 08/17/20 11/26/21 documented as of this encounter
--- OUTSIDE RECORDS SUMMARY | 2024-06-26 02:09 | XMS_ITS | Encounter Summary ---
Author Organization [facility] Address [address] [place] [address] Phone Care Team Providers Care Software Testing Specialist Name Role Phone Julio César Briseno MD Primary Care Provider [phone] Eren Cr MD Unavailable [phone] Yohana Bowen MD Unavailable Sabrina Willard NP Unavailable Encounter Details Date Type Department Care Team (Late st Contact Info) Description 08/10/2021 Orders Only [facility] Oncology [address] [facility] Advanced Medicine 7th [place] [address] [place] [address] Eren Cr MD [address] [facility] [address] [place] [address] Neuro-endocrine carcinoma (CMS/HCC) (HCC) (Primary Dx) Social [...] on file Legal 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
--- OUTSIDE RECORDS SUMMARY | 2024-06-26 02:10 | XMS_ITS | Encounter Summary ---
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 Eren Cr MD [address] [facility] [address] [place] [address] Phone: tel: fax: [facility] [address] [facility] Advanced Medicine 7th [place] [address] Phone: tel: Referral ID Status Reason Start Date Expiration Date Visits Re quested Visits Authorized [id number] Closed 06/21/2021 06/26/2024 1 99 Encounter Details Date Type Department Care Team (Late st Contact Info) Description 07/04/2021 1:15 PM TONE CABINET ASSEMBLER Lab [facility] Oncology [address] [place] [address] Neuro-endocrine carcinoma (CMS/HCC) (HCC); Neuroendocrine carcinoma (CMS/HCC) [...] on file Legal Sex Female 2:41 PM TONE CABINET ASSEMBLER Gender Identity Not on file Sexual [...] RATIO, URINE, RANDOM STAT 07/04/2021 1:45 PM TONE CABINET ASSEMBLER Neuro-endocrine carcinoma (CMS/HCC) (HCC) EGFR STAT 07/04/2021 1:44 PM TONE CABINET ASSEMBLER Neuro-endocrine carcinoma (CMS/HCC) (HCC) DIFFERENTIAL AUTO STAT 07/04/2021 1:4 4 PM TONE CABINET ASSEMBLER Neuro-endocrine carcinoma (CMS/HCC) (HCC) CHROMOGRANIN A Routine 07/04/2021 1:44 PM TONE CABINET ASSEMBLER Neuro-endocrine carcinoma (CMS/HCC) (HCC) CBC WITH AUTO DIFFERENTIAL STAT 07/04/2021 1:44 PM TONE CABINET ASSEMBLER Neuro-endocrine carcinoma (CMS/HCC) (HCC) APTT Routine 07/04/2021 1:44 PM TONE CABINET ASSEMBLER Neuroendocrine carcinoma (CMS/HCC) (HCC) PROTIME-INR Routine 07/04/2021 1:44 PM TONE CABINET ASSEMBLER Neuroendocrine carcinoma (CMS/HCC) (HCC) TSH Routine 07/04/2021 1:44 PM TONE CABINET ASSEMBLER Neuro-endocrine carcinoma (CMS/HCC) (HCC) PHOSPHORUS STAT 07/04/2021 1:44 PM TONE CABINET ASSEMBLER Neuro-endocrine carcinoma (CMS/HCC) (HCC) MAGNESIUM STAT 07/04/2021 1:44 PM TONE CABINET ASSEMBLER Neuro-endocrine carcinoma (CMS/HCC) (HCC) COMPREHENSIVE METABOLIC PANEL STAT 07/04/2021 1:44 PM TONE CABINET ASSEMBLER Neuro-endocrine carcinoma (CMS/HCC) (HCC) documented in this encounter Results * Protein / creatinine ratio, urine, random (07/04/2021 1:45 PM TONE CABINET ASSEMBLER) Pathologist [facility] Protein, ur, quant 14.0 mg/dL [facility] Comment: Interpretive Data No reference range established. Current interpretive data was last revised 2018. Creatinine Ur 168.8 mg/dL [facility] Comment: Interpretive Data No reference range established. Current interpretive data was last revised 2018. Protein/creatinin e ratio 82.9 0.0 - 180.0 mg/g CR [facility] Urine 07/04/2021 1:45 PM TONE CABINET ASSEMBLER 07/04/2021 3:39 PM TONE CABINET ASSEMBLER us Eren Cr MD LAB URINE ORDERABLES Final Re sult [facility] [address] [facility] Department [place] [address] * (ABNORMAL) eGFR (07/04/2021 1:44 PM TONE CABINET ASSEMBLER) Pathologist [facility] eGFR 67(L) 90 - 130 mL/min/1. 73 m2 [facility] Comment: Interpretive Data Reference Interval Normal [...] last reviewed 2021. Blood 07/04/2021 1:44 PM TONE CABINET ASSEMBLER 07/04/2021 1:46 PM TONE CABINET ASSEMBLER us Eren Cr MD LAB BLOOD ORDERABLES Final Re sult [facility] [address] [facility] Department [place] [address] * (ABNORMAL) Differential, auto (07/04/2021 1:44 PM TONE CABINET ASSEMBLER) Neutrophil abs 4.0 1.7 - 6.5 K/cumm [facility] Imm gran abs 0.0 0.0 - 0.1 K/cumm [facility] Lymphocyte abs 0.6(L) 0.8 - 3.3 K/cumm [facility] Monocyte abs 0.4 0.2 - 0.8 K/cumm [facility] Eosinophil abs 0.1 0.0 - 0.5 K/cumm [facility] Basophil abs 0.0 0.0 - 0.1 K/cumm [facility] Neutrophil pct 78.5 % [facility] Comment: Interpretive Data Percent cell count reference ranges are not reported, since discordance with absolute values may lead to misinterpretation of CBC data. Current Interpretive Data was last revised on 2017. Imm gran pct 0.4 % [facility] Comment: Interpretive Data Percent cell count reference ranges are not reported, since discordance with absolute values may lead to misinterpretation of CBC data. Current Interpretive Data was last revised on 2017. Lymphocyte pct 10.9 % [facility] Comment: Interpretive Data Percent cell count reference ranges are not reported, since discordance with absolute values may lead to misinterpretation of CBC data. Current Interpretive Data was last revised on 2017. Monocyte pct 8.0 % [facility] Comment: Interpretive Data Percent cell count reference ranges are not reported, since discordance with absolute values may lead to misinterpretation of CBC data. Current Interpretive Data was last revised on 2017. Eosinophil pct 1.6 % [facility] Comment: Interpretive Data Percent cell count reference ranges are not reported, since discordance with absolute values may lead to misinterpretation of CBC data. Current Interpretive Data was last revised on 2017. Basophil pct 0.6 % [facility] Comment: Interpretive Data Percent cell count reference ranges are not reported, since discordance with absolute values may lead to misinterpretation of CBC data. Current Interpretive Data was last revised on 2017. Blood 07/04/2021 1:44 PM TONE CABINET ASSEMBLER 07/04/2021 1:46 PM TONE CABINET ASSEMBLER us Eren Cr MD LAB BLOOD ORDERABLES Final Re sult [facility] One [facility] [place] [address] * Protime-INR (07/04/2021 1:44 PM TONE CABINET ASSEMBLER) PT 10.3 9.5 - 13.6 sec [facility] INR 0.9 0.9 - 1.2 [facility] Comment: Interpretive data Oral anticoagulant therapeutic ranges: Venous thromboembolism prophylaxis or treatment: 2.0-3.0 CARDIOLOGY Standard range: 2.0-3.0 High-intensity range: 2.5-3.5 Refer to indication-specific guidelines for appropriate target ranges for prosthetic heart valve replacement. Current interpretive data was last revised on 2019. Blood 07/04/2021 1:44 PM TONE CABINET ASSEMBLER 07/04/2021 3:33 PM TONE CABINET ASSEMBLER Eren Cr MD LAB BLOOD ORDERABLES Final Re sult Performing Organization Address [facility] de Phone Number [facility] [place] [address] * aPTT (07/04/2021 1:44 PM TONE CABINET ASSEMBLER) [facility] aPTT 28 27 - 37 sec [facility] Comment: Interpretive Data Therapeutic heparin range: 60.0 - 94.0 seconds. Based on correlation with therapeutic heparin activity range of 0.3-0.7 Units/mL. Current interpretive data was last revised on 2020. Blood 07/04/2021 1:44 PM TONE CABINET ASSEMBLER 07/04/2021 3:33 PM TONE CABINET ASSEMBLER Eren Cr MD LAB BLOOD [facility]ABLES [facility] Per[facility] Organization Address [facility] de Phone Number [facility] [place] [address] * CBC with auto differential (07/04/2021 1:44 PM TONE CABINET ASSEMBLER) [facility] WBC 5.1 3.8 - 9.9 K/cumm [facility] Hgb 13.1 11.9 - 15.5 g/dL [facility] Hct 40.2 35.6 - 45.5 % [facility] Plt 152 150 - 400 K/cumm [facility] MPV 10.2 9.1 - 12.3 fL [facility] RBC 4.30 3.90 - 5.20 M/cumm [facility] MCV 93.5 81.3 - 96.4 fL [facility] MCH 30.5 27.1 - 33.3 pg [facility] MCHC 32.6 32.3 - 35.7 g/dL [facility] RDW CV 13.7 11.1 - 14.9 % [facility] RDW SD 45.8 35.7 - 48.1 fL [facility] NRBC abs 0.00 0.00 - 0.01 K/cumm [facility] Blood 07/04/2021 1:44 PM TONE CABINET ASSEMBLER 07/04/2021 1:46 PM TONE CABINET ASSEMBLER us Eren Cr MD LAB BLOOD ORDERABLES Final Re sult [facility] One [facility] Department [place] [address] * Comprehensive metabolic panel (07/04/2021 1:44 PM TONE CABINET ASSEMBLER) Sodium 140 135 - 145 mmol/L [facility] Potassium, pl 4.1 3.3 - 4.9 mmol/L [facility] Chloride 105 97 - 110 mmol/L [facility] CO2 28 22 - 32 mmol/L [facility] Anion gap 7 2 - 15 mmol/L [facility] BUN 9 8 - 25 mg/dL [facility] Creatinine 0.91 0.60 - 1.10 mg/dL [facility] Glucose 112 70 - 199 mg/dL [facility] [...] 2017. Calcium 10.3 8.5 - 10.3 mg/dL [facility] Bilirubin, total 0.3 0.1 - 1.2 mg/dL [facility] Protein, pl 7.0 6.5 - 8.5 g/dL [facility] Albumin 4.3 3.5 - 5.0 g/dL [facility] Alk phos 86 40 - 130 Units/L [facility] ALT 15 7 - 45 Units/L [facility] AST 22 10 - 45 Units/L [facility] Blood 07/04/2021 1:44 PM TONE CABINET ASSEMBLER 07/04/2021 1:46 PM TONE CABINET ASSEMBLER Eren Cr MD LAB BLOOD ORDERABLES Final Re sult Performing Organization Address [facility] [place] [address] * Magnesium (07/04/2021 1:44 PM TONE CABINET ASSEMBLER) Pathologist [facility] Magnesium 1.8 1.4 - 2.5 mg/dL [facility] Blood 07/04/2021 1:44 PM TONE CABINET ASSEMBLER 07/04/2021 1:46 PM TONE CABINET ASSEMBLER Eren Cr MD LAB BLOOD ORDERABLES Final Re sult Performing Organization Address [facility] Co de Phone Number [facility] [place] [address] * Phosphorus (07/04/2021 1:44 PM TONE CABINET ASSEMBLER) Pathologist [facility] Phosphorus, pl 2.5 2.3 - 4.5 mg/dL [facility] Blood 07/04/2021 1:44 PM TONE CABINET ASSEMBLER 07/04/2021 1:46 PM TONE CABINET ASSEMBLER Eren Cr MD LAB BLOOD ORDERABLES Final Re sult Performing Organization Address [facility] Co de Phone Number [facility] [place] [address] * TSH (07/04/2021 1:44 PM TONE CABINET ASSEMBLER) Thyroid Stimulating Hormone 4.11 0.30 - 4.20 mcIUnit/mL [facility] Blood 07/04/2021 1:44 PM TONE CABINET ASSEMBLER 07/04/2021 3:33 PM TONE CABINET ASSEMBLER Eren Cr MD LAB BLOOD ORDERABLES Final Re sult [facility] [place] [address] * (ABNORMAL) Chromogranin A (07/04/2021 1:44 PM TONE CABINET ASSEMBLER) Pathologist [facility] Chromogranin A 1364(H) <93 ng/mL [facility] Comment: Impaired renal or hepatic function or treatment with proton pump inhibitors may result in artifactual elevations of Chromogranin A. ADDITIONAL INFORMATION This test was developed and its performance characteristics determined by [facility] in a manner consistent with CLIA requirements. This test has not been cleared or approved by the U.S. Food and Drug Administration. The testing method is a homogeneous time-resolved immunofluorescent assay manufactured by [facility] and performed on the [employer] Kryptor Compact Plus. ? Values obtained with different assay methods or kits may be different and cannot be used interchangeably. ? Test results cannot be interpreted as absolute evidence for the presence or absence of malignant disease. Test Performed by: [id number] [place] [address] Pyrometer Operator: Immanuel Novak M.D. Ph.D.; CLIA# [id number] Blood 07/04/2021 1:44 PM TONE CABINET ASSEMBLER 07/04/2021 4:13 PM TONE CABINET ASSEMBLER Eren Cr MD LAB BLOOD ORDERABLES Final Re sult [facility] [place] [address] documented in this encounter Visit Diagnoses Diagnosis Neuro-endocrine carcinoma (HCC) Other malignant neoplasm of unspecified site Neuroendocrine carcinoma (HCC) Other malignant neoplasm of unspecified site documented in this encounter Orders Appointment Requests Count Last Ordered Date Fi rst Ordered Date ONCBCN LAB APPOINTMENT 1 07/04/2021 documented in this encounter Care Teams Pants Closer Relationship Specialty Start Date End Date Julio César Briseno MD PCP - General 10/01/16 Eren Cr MD Referring Physician Medical Oncology 11/25/18 Yohana Bowen MD Radiation Oncologist Radiation Oncology 11/25/18 Sabrina Willard NP [address] [place] [address] Nurse Practitioner Medical Oncology 08/17/20 11/26/21 documented as of this encounter
--- OUTSIDE RECORDS SUMMARY | 2024-06-26 02:10 | XMS_ITS | Encounter Summary ---
Author Organization [facility] Address [address] [place] [address] Phone Care Team Providers Care Flotation Tank Operator Name Role Phone Julio César Briseno MD Primary Care Provider Eren Cr MD Unavailable Yohana Bowen MD Unavailable Sabrina Willard NP Unavailable Encounter Details Date Type Department Care Team (Late st Contact Info) Description 07/14/2021 Orders Only [facility] [address] [facility] Advanced Medicine 7th [place] [address] [place] [address] Eren Cr MD [address] [facility] [address] [place] [address] Social History Tobacco Use Types Packs/Day Years [...] file Legal Sex Female 2: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 Gender Identity Not on file Sexual Orientation Straight 02/19/2021 9: 29 AM CDT Occupation Industry Job Start Date Job End Date retired Not on file Not on file Not on file documented as of this encounter Plan of Treatment Not on file documented as of this encounter Visit Diagnoses Not on filedocumented in this encounter Care Teams Flotation Tank Operator Relationship Specialty Start Date End Date Julio César Briseno MD PCP - General 10/01/16 Eren Cr MD Referring Physician Medical Oncology 11/25/18 Yohana Bowen MD Radiation Oncologist Radiation Oncology 11/25/18 Sabrina Willard NP [address] [place] [address] Nurse Practitioner Medical Oncology 08/17/20 11/26/21 documented as of this encounter
--- OUTSIDE RECORDS SUMMARY | 2024-06-26 02:10 | XMS_ITS | Encounter Summary ---
Author Organization [facility] Address [address] [place] [address] Phone Care Team Providers Care Cloth Bleaching Range Back Tender Name Role Phone Julio César Briseno MD Primary Care Provider Eren Cr MD Unavailable [phone] Yohana Bowen MD Unavailable Sabrina Willard NP Unavailable [phone] Encounter Details Date Type Department Care Team (Late st Contact Info) Description 07/14/2021 Orders Only [facility] Oncology [address] [facility] Advanced Medicine 7th [place] [address] [place] [address] Elaine Coy Neuroendocrine carcinoma (CMS/HCC) [...] file Legal Sex Female 2: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
--- OUTSIDE RECORDS SUMMARY | 2024-06-26 02:10 | XMS_ITS | Encounter Summary ---
Author Organization [facility] Address [address] [place] [address] Phone Care Team Providers Care Automotive Window Tinter Name Role Phone Julio César Briseno MD Primary Care Provider Eren Cr MD Unavailable [phone] Yohana Bowen MD Unavailable Sabrina Willard NP Unavailable [phone] Reason for Visit * Reason Onset Date Comments test results/arm pain 07/05/2021 Encounter Details Date Type Department Care Team (Late st Contact Info) Description 07/05/2021 Telephone [facility] Oncology [address] 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 MAKER documented in this encounter Plan of Treatment Not on file documented as of this encounter Visit Diagnoses Not on filedocumented in this encounter Care Teams Automotive Window Tinter Relationship Specialty Start Date End Date Julio César Briseno MD PCP - General 10/01/16 Eren Cr MD Referring Physician Medical Oncology 11/25/18 Yohana Bowen MD Radiation Oncologist Radiation Oncology 11/25/18 Sabrina Willard NP [address] [place] [address] Nurse Practitioner Medical Oncology 08/17/20 11/26/21 documented as of this encounter
--- OUTSIDE RECORDS SUMMARY | 2024-06-26 02:10 | XMS_ITS | Encounter Summary ---
Author Organization [facility] Address [address] [place] [address] Phone Care Team Providers Care Medical Office Manager Name Role Phone Julio César Briseno MD Primary Care Provider Eren Cr MD Unavailable Yohana Bowen MD Unavailable Sabrina Willard NP Unavailable Encounter Details Date Type Department Care Team (Late st Contact Info) Description 07/13/2021 Orders Only [facility] Oncology [address] [facility] Advanced Medicine 7th [place] [address] [place] [address] Eren Cr MD [address] [facility] [address] [place] [address] Neuroendocrine carcinoma (CMS/HCC) (HCC) (Primary Dx) Social [...] on file Legal Sex Female 2:41 PM ESTHETICIAN AND MANAGER MEDICAL 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 Gender Identity Not on file Sexual Orientation Straight 02/19/2021 9: 29 AM CDT Occupation Industry Job Start Date Job End Date retired Not on file Not on file Not on file documented as of this encounter Plan of Treatment Not on file documented as of this encounter Results * Calcium level (07/13/2021 2:52 PM ESTHETICIAN AND MANAGER MEDICAL SPA) Calcium 9.4 8.5 - 10.3 mg/dL [facility] Blood 07/13/2021 2:52 PM ESTHETICIAN AND MANAGER MEDICAL SPA 07/13/2021 3:57 PM ESTHETICIAN AND MANAGER MEDICAL SPA us Eren Cr MD LAB BLOOD ORDERABLES Final Re sult [facility] One [facility] Department of Laboratories [place], [place] [id number] documented in this encounter Visit Diagnoses Diagnosis Neuroendocrine carcinoma (HCC)- Primary Other malignant neoplasm of unspecified site documented in this encounter Care Teams Medical Office Manager Relationship Specialty Start Date End Date Julio César Briseno MD PCP - General 10/01/16 Eren Cr MD Referring Physician Medical Oncology 11/25/18 Yohana Bowen MD Radiation Oncologist Radiation Oncology 11/25/18 Sabrina Willard NP [address] [place] [address] Nurse Practitioner Medical Oncology 08/17/20 11/26/21 documented as of this encounter
--- OUTSIDE RECORDS SUMMARY | 2024-06-26 02:10 | XMS_ITS | Encounter Summary ---
Author Organization [facility] Address [address] [place] [address] Phone Care Team Providers Care Assessment Coordinator Name Role Phone Julio César Briseno MD Primary Care Provider Eren Cr MD Unavailable Yohana Bowen MD Unavailable Sabrina Willard NP Unavailable Encounter Details Date Type Department Care Team (Late st Contact Info) Description 07/13/2021 Orders Only [facility] Oncology [address] [facility] Advanced Medicine 7th [place] [address] [place] [id number] Eren Cr MD [address] [facility] [address] [place] [address] Neuroendocrine carcinoma (CMS/HCC) (HCC) (Primary Dx) Social [...] file Legal 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 Female 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 Gender Identity Not on file Sexual Orientation Straight 02/19/2021 9: 29 AM CDT Occupation Industry Job Start Date Job End Date retired Not on file Not on file Not on file documented as of this encounter Plan of Treatment Not on file documented as of this encounter Results * CBC with auto differential (07/13/2021 12:56 PM 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) Pathologist [facility] WBC 4.9 3.8 - 9.9 K/cumm [facility] Hgb 14.2 11.9 - 15.5 g/dL [facility] Hct 42.3 35.6 - 45.5 % [facility] Plt 155 150 - 400 K/cumm [facility] MPV 10.4 9.1 - 12.3 fL [facility] RBC 4.70 3.90 - 5.20 M/cumm [facility] MCV 90.0 81.3 - 96.4 fL [facility] MCH 30.2 27.1 - 33.3 pg [facility] MCHC 33.6 32.3 - 35.7 g/dL [facility] RDW CV 13.5 11.1 - 14.9 % [facility] RDW SD 44.0 35.7 - 48.1 fL [facility] NRBC abs 0.00 0.00 - 0.01 K/cumm [facility] Blood 07/13/2021 12:5 6 PM 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 07/13/2021 1:07 PM 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 us Eren Cr MD LAB BLOOD ORDERABLES Final Re sult [facility] One [facility] [place] [address] * (ABNORMAL) Comprehensive metabolic panel (07/13/2021 12:56 PM 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) Sodium 138 135 - 145 mmol/L [facility] Potassium, pl 4.5 3.3 - 4.9 mmol/L [facility] Comment:Hemolyzed; Potassium value may be falsely elevated by as much as 0.6-1.0 mmol/L. Suggest redraw and reanalysis. Chloride 105 97 - 110 mmol/L [facility] CO2 23 22 - 32 mmol/L [facility] Anion gap 10 2 - 15 mmol/L [facility] BUN 13 8 - 25 mg/dL [facility] Creatinine 1.04 0.60 - 1.10 mg/dL [facility] Glucose 110 70 - 199 mg/dL [facility] [...] 2017. Calcium 10.4(H) 8.5 - 10.3 mg/dL [facility] Bilirubin, total 0.6 0.1 - 1.2 mg/dL [facility] Protein, pl 7.4 6.5 - 8.5 g/dL [facility] Albumin 4.3 3.5 - 5.0 g/dL [facility] Alk phos 89 40 - 130 Units/L [facility] ALT 21 7 - 45 Units/L [facility] AST 38 10 - 45 Units/L [facility] Comment:Hemolyzed; result ma y be falsely elevated Blood 07/13/2021 12:5 6 PM 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 07/13/2021 1:07 PM 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 us Eren rC MD LAB BLOOD ORDERABLES Final Re sult [facility] One [facility] [place] [address] documented in this encounter Visit Diagnoses Diagnosis Neuroendocrine carcinoma (HCC)- Primary Other malignant neoplasm of unspecified site documented in this encounter Orders Appointment Requests Count Last Ordered Date Fi rst Ordered Date ONCBCN INFUSION APPT REQUEST 1 07/13/2021 documented in this encounter Care Teams Assessment Coordinator Relationship Specialty Start Date End Date Julio César Briseno MD PCP - General 10/01/16 Eren Cr MD Referring Physician Medical Oncology 11/25/18 Yohana Bowen MD Radiation Oncologist Radiation Oncology 11/25/18 Sabrina Willard NP [address] [place] [address] Nurse Practitioner Medical Oncology 08/17/20 11/26/21 documented as of this encounter
--- OUTSIDE RECORDS SUMMARY | 2024-06-26 02:10 | XMS_ITS | Encounter Summary ---
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 Cancer [address] [address] Phone: tel: fax: Referral ID Status Reason Start Date Expiration Date V isits Requested Visits Authorized [id number] Authorized 11/28/2017 02/05/2025 1 150 Encounter Details Date Type Department Care Team (Late st Contact Info) Description 06/19/2021 2:30 PM ELECTRICAL ELECTRONICS ENGINEER Lab [facility] Oncology [address] [facility] 7th [place] [address] [place] [phone] Neuroendocrine carcinoma (CMS/HCC) (HCC); Malignant neoplasm metastatic [...] file Legal Sex Female 2:41 PM ELECTRICAL ELECTRONICS ENGINEER Gender Identity Not on file Sexual [...] RATIO, URINE, RANDOM Routine 06/19/2021 7:00 PM ELECTRICAL ELECTRONICS ENGINEER Neuro-endocrine carcinoma (CMS/HCC) (HCC) EGFR Routine 06/19/2021 6:45 PM ELECTRICAL ELECTRONICS ENGINEER Neuroendocrine carcinoma (CMS/HCC) (HCC) THYROID FUNCTION CASCADE Routine 06/19/2021 6:45 PM ELECTRICAL ELECTRONICS ENGINEER Neuroendocrine carcinoma (CMS/HCC) (HCC) APTT Routine 06/19/2021 6:45 PM ELECTRICAL ELECTRONICS ENGINEER Neuroendocrine carcinoma (CMS/HCC) (HCC) PROTIME-INR Routine 06/19/2021 6:45 PM ELECTRICAL ELECTRONICS ENGINEER Neuroendocrine carcinoma (CMS/HCC) (HCC) MAGNESIUM Routine 06/19/2021 6:45 PM ELECTRICAL ELECTRONICS ENGINEER Neuroendocrine carcinoma (CMS/HCC) (HCC) CREATININE Routine 06/19/2021 6:45 PM ELECTRICAL ELECTRONICS ENGINEER Neuroendocrine carcinoma (CMS/HCC) (HCC) EGFR STAT 06/19/2021 2:47 PM ELECTRICAL ELECTRONICS ENGINEER 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) DIFFERENTIAL AUTO Routine 06/19/2021 2:4 7 PM ELECTRICAL ELECTRONICS ENGINEER 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) CHROMOGRANIN A Routine 06/19/2021 2:47 PM ELECTRICAL ELECTRONICS ENGINEER Neuroendocrine carcinoma (CMS/HCC) (HCC) Malignant neoplasm metastatic to liver (CMS/HCC) (HCC) CBC WITH AUTO DIFFERENTIAL Routine 06/19/2021 2:47 PM ELECTRICAL ELECTRONICS ENGINEER Neuroendocrine carcinoma (CMS/HCC) (HCC) Malignant neoplasm metastatic to liver (CMS/HCC) (HCC) VITAMIN D 25 HYDROXY Routine 06/19/2021 2:47 PM ELECTRICAL ELECTRONICS ENGINEER Neuroendocrine carcinoma (CMS/HCC) (HCC) Malignant neoplasm metastatic to liver (CMS/HCC) (HCC) PHOSPHORUS Routine 06/19/2021 2:47 PM ELECTRICAL ELECTRONICS ENGINEER Neuroendocrine carcinoma (CMS/HCC) (HCC) Malignant neoplasm metastatic to liver (CMS/HCC) (HCC) LIPID PANEL Routine 06/19/2021 2:47 PM ELECTRICAL ELECTRONICS ENGINEER Neuroendocrine carcinoma (CMS/HCC) (HCC) Malignant neoplasm metastatic to liver (CMS/HCC) (HCC) COMPREHENSIVE METABOLIC PANEL STAT 06/19/2021 2:47 PM ELECTRICAL ELECTRONICS ENGINEER Neuroendocrine carcinoma (CMS/HCC) (HCC) Malignant neoplasm metastatic to liver (CMS/HCC) (HCC) documented in this encounter Results * Protein / creatinine ratio, urine, random (06/19/2021 7:00 PM ELECTRICAL ELECTRONICS ENGINEER) Protein, ur, quant 12.5 mg/dL [facility] Comment: Interpretive Data No reference range established. Current interpretive data was last revised 2018. Creatinine Ur 166.6 mg/dL [facility] Comment: Interpretive Data No reference range established. Current interpretive data was last revised 2018. Protein/creatinin e ratio 75.0 0.0 - 180.0 mg/g CR [facility] Urine 06/19/2021 7:00 PM ELECTRICAL ELECTRONICS ENGINEER 06/19/2021 7:22 PM ELECTRICAL ELECTRONICS ENGINEER us Eren Cr MD LAB URINE ORDERABLES Final Re sult [facility] One [facility] [place] [address] * (ABNORMAL) eGFR (06/19/2021 6:45 PM ELECTRICAL ELECTRONICS ENGINEER) eGFR 61(L) 90 - 130 mL/min/1. 73 m2 [facility] Comment: Interpretive Data Reference Interval [...] last reviewed 2021. Blood 06/19/2021 6:45 PM ELECTRICAL ELECTRONICS ENGINEER 06/19/2021 7:25 PM ELECTRICAL ELECTRONICS ENGINEER Eren Cr MD LAB BLOOD ORDERABLES Final Re sult Performing Organization Address [place] Co de Phone Number [facility] [place] [address] * TSH reflex to free T4 (06/19/2021 6:45 PM ELECTRICAL ELECTRONICS ENGINEER) TSH 2.13 0.30 - 4.20 mcIUnit/mL [facility] Blood 06/19/2021 6:45 PM ELECTRICAL ELECTRONICS ENGINEER 06/19/2021 7:10 PM ELECTRICAL ELECTRONICS ENGINEER Eren Cr MD LAB BLOOD ORDERABLES Final Re sult Performing Organization Address [place] de Phone Number [facility] [place] [address] * Magnesium (06/19/2021 6:45 PM ELECTRICAL ELECTRONICS ENGINEER) Magnesium 1.9 1.4 - 2.5 mg/dL [facility] Blood 06/19/2021 6:45 PM ELECTRICAL ELECTRONICS ENGINEER 06/19/2021 7:10 PM ELECTRICAL ELECTRONICS ENGINEER Eren Cr MD LAB BLOOD ORDERABLES Final Re sult Performing Organization Address [facility] Co de Phone Number [facility] [place] [address] * Creatinine (06/19/2021 6:45 PM ELECTRICAL ELECTRONICS ENGINEER) Creatinine 0.98 0.60 - 1.10 mg/dL [facility] Blood 06/19/2021 6:45 PM ELECTRICAL ELECTRONICS ENGINEER 06/19/2021 7:10 PM ELECTRICAL ELECTRONICS ENGINEER Eren Cr MD LAB BLOOD ORDERABLES Final Re sult Performing Organization Address [facility] de Phone Number [facility] [place] [address] * (ABNORMAL) aPTT (06/19/2021 6:45 PM ELECTRICAL ELECTRONICS ENGINEER) aPTT 24(L) 27 - 37 sec [facility] Comment: Interpretive Data Therapeutic heparin range: 60.0 - 94.0 seconds. Based on correlation with therapeutic heparin activity range of 0.3-0.7 Units/mL. Current interpretive data was last revised on 2020. Blood 06/19/2021 6:45 PM ELECTRICAL ELECTRONICS ENGINEER 06/19/2021 7:09 PM ELECTRICAL ELECTRONICS ENGINEER Eren Cr MD LAB BLOOD ORDERABLES Final Re sult Performing Organization Address [facility] [place] [address] * Protime-INR (06/19/2021 6:45 PM ELECTRICAL ELECTRONICS ENGINEER) PT 10.7 9.5 - 13.6 sec [facility] INR 1.0 0.9 - 1.2 [facility] Comment: Interpretive data Oral anticoagulant therapeutic ranges: Venous thromboembolism prophylaxis or treatment: 2.0-3.0 CARDIOLOGY Standard range: 2.0-3.0 High-intensity range: 2.5-3.5 Refer to indication-specific guidelines for appropriate target ranges for prosthetic heart valve replacement. Current interpretive data was last revised on 2019. Blood 06/19/2021 6:45 PM ELECTRICAL ELECTRONICS ENGINEER 06/19/2021 7:09 PM ELECTRICAL ELECTRONICS ENGINEER Eren Cr MD LAB BLOOD ORDERABLES Final Re sult Performing Organization Address [facility] Co de Phone Number [facility] [place] [address] * (ABNORMAL) eGFR (06/19/2021 2:47 PM ELECTRICAL ELECTRONICS ENGINEER) Pathologist [facility] eGFR 62(L) 90 - 130 mL/min/1. 73 [...] was last reviewed 2021. Testing performed by: [facility], [address] [place] [phone] Blood 06/19/2021 2:47 PM ELECTRICAL ELECTRONICS ENGINEER 06/19/2021 2:56 PM ELECTRICAL ELECTRONICS ENGINEER us Eren Cr MD LAB BLOOD ORDERABLES Final Re sult [facility] One [facility] Department [place] [address] * (ABNORMAL) Differential, auto (06/19/2021 2:47 PM ELECTRICAL ELECTRONICS ENGINEER) Pathologist [facility] Neutrophil abs 5.2 1.8 - 6.6 K/cumm [facility] Comment:Testing performed by : [facility], [address] [place] [phone] Lymphocyte abs 0.6(L) 1.2 - 3.3 K/cumm [facility] Comment:Testing performed by : [facility], [address] [place] [phone] Monocyte abs 0.9 0.2 - 1.2 K/cumm [facility] Comment:Testing performed by : [facility], [address] [place] [phone] Eosinophil abs 0.1 0.0 - 0.5 K/cumm [facility] Comment:Testing performed by : [facility], [address] [place] [phone] Basophil abs 0.1 0.0 - 0.2 K/cumm [facility] Comment:Testing performed by : [facility], [address] [place] [phone] Neutrophil pct 75.3 % [facility] Comment: Interpretive Data Percent cell count reference ranges are not reported, since discordance with absolute values may lead to misinterpretation of CBC data. Current Interpretive Data was last revised on 2017. Testing performed by: [facility], [address] [place] [phone] Lymphocyte pct 8.9 % [facility] Comment: Interpretive Data Percent cell count reference ranges are not reported, since discordance with absolute values may lead to misinterpretation of CBC data. Current Interpretive Data was last revised on 2017. Testing performed by: [facility], [address] [place] [phone] Monocyte pct 13.6 % [facility] Comment:Testing performed by : [facility], [address] [place] [phone] Eosinophil pct 1.5 % [facility] Comment:Testing performed by : [facility], [address] [place] [phone] Basophil pct 0.7 % [facility] Comment:Testing performed by : [facility], [address] [place] [phone] Blood 06/19/2021 2:47 PM ELECTRICAL ELECTRONICS ENGINEER 06/19/2021 2:56 PM ELECTRICAL ELECTRONICS ENGINEER us Eren Cr MD LAB BLOOD ORDERABLES Final Re sult [facility] One [facility] [place] [address] * (ABNORMAL) Lipid panel (06/19/2021 2:47 PM ELECTRICAL ELECTRONICS ENGINEER) Cholesterol 168 30 - 199 mg/dL [facility] [...] on 2018. Triglycerides 193(H) <=149 mg/dL [facility] Comment: Interpretive Data Ages < [...] revised on 2018. HDL 64 >=40 mg/dL [facility] Comment: Interpretive [...] on 2018. LDL, calculated 65 <=129 mg/dL [facility] Comment: Interpretive Data Ages [...] revised on 2018. Non-HDL Cholesterol 104 mg/dL [facility] Comment: Interpretive [...] last revised on 2018. Chol/HDL ratio 3 [facility] Blood 06/19/2021 2:47 PM ELECTRICAL ELECTRONICS ENGINEER 06/19/2021 4:41 PM ELECTRICAL ELECTRONICS ENGINEER Eren Cr MD LAB BLOOD ORDERABLES Final Re sult Performing Organization Address [place] Co de Phone Number [facility] [place] [address] * Phosphorus (06/19/2021 2:47 PM ELECTRICAL ELECTRONICS ENGINEER) Pathologist [facility] Phosphorus, pl 2.8 2.3 - 4.5 mg/dL [facility] Comment:Testing performed by : [facility], [address] [place] [phone] Blood 06/19/2021 2:47 PM ELECTRICAL ELECTRONICS ENGINEER 06/19/2021 2:56 PM ELECTRICAL ELECTRONICS ENGINEER Result [facility] Eren Cr MD LAB BLOOD ORDERABLES Final Re sult Performing Organization Address [facility]/ZIP Co de Phone Number [facility] [place] [address] * (ABNORMAL) Vitamin D 25 hydroxy (06/19/2021 2:47 PM ELECTRICAL ELECTRONICS ENGINEER) [facility] Vitamin D 25-OH 28(L) 30 - 80 ng/mL [facility] Blood 06/19/2021 2:47 PM ELECTRICAL ELECTRONICS ENGINEER 06/19/2021 4:41 PM ELECTRICAL ELECTRONICS ENGINEER Eren Cr MD LAB BLOOD ORDERABLES Final Re sult [facility] One [facility] [place] [address] * (ABNORMAL) CBC with auto differential (06/19/2021 2:47 PM ELECTRICAL ELECTRONICS ENGINEER) WBC 6.9 3.8 - 9.8 K/cumm [facility] Comment:Testing performed by : [facility], [address] [place] [phone] Hgb 14.4 12.1 - 15.1 g/dL [facility] Comment:Testing performed by : [address] [phone] Hct 42.1 36.1 - 44.3 % [facility] Comment:Testing performed by : [place] [phone] Plt 150 140 - 440 K/cumm [facility] Comment:Testing performed by : [facility], [address] [place] [phone] MPV 8.4 6.8 - 10.4 fL [facility] Comment:Testing performed by : [address] [phone] RBC 4.68 3.90 - 5.00 M/cumm [facility] Comment:Testing performed by : [place] [id number] MCV 90.0 80.0 - 97.6 fL [facility] Comment:Testing performed by : [facility], [address] [place] [phone] MCH 30.7 26.7 - 33.7 pg [facility] Comment:Testing performed by : [address] [phone] MCHC 34.2 32.7 - 35.5 g/dL [facility] Comment:Testing performed by : [address] [phone] RDW CV 15.6(H) 11.8 - 14.6 % [facility] Comment:Testing performed by : [facility], [address] [place] [phone] NRBC abs 0.00 0.00 - 0.01 K/cumm [facility] Comment:Testing performed by : [facility], [address] [place] [phone] Blood 06/19/2021 2:47 PM ELECTRICAL ELECTRONICS ENGINEER 06/19/2021 2:56 PM ELECTRICAL ELECTRONICS ENGINEER Eren Cr MD LAB BLOOD ORDERABLES Final Re sult [facility] One [facility] [place] [address] * (ABNORMAL) Comprehensive metabolic panel (06/19/2021 2:47 PM ELECTRICAL ELECTRONICS ENGINEER) Sodium 139 135 - 145 mmol/L [facility] Comment:Testing performed by : [facility], [address] [place] [phone] Potassium, pl 4.0 3.3 - 4.9 mmol/L [facility] Comment:Testing performed by : [facility], [address] [place] [phone] Chloride 104 97 - 110 mmol/L [facility] Comment:Testing performed by : [facility], [address] [place] [phone] CO2 26 22 - 32 mmol/L [facility] Comment:Testing performed by : [address] [phone] Anion gap 9 2 - 15 mmol/L [facility] Comment:Testing performed by : [facility], [address] [place] [phone] BUN 13 8 - 25 mg/dL [facility] Comment:Testing performed by : [facility], [address] [place] [phone] Creatinine 0.97 0.60 - 1.10 mg/dL [facility] Comment:Testing performed by : [facility], [address] [place] [phone] Glucose 107 70 - 199 mg/dL [facility] [...] last revised 2017. Testing performed by: [facility], [address] [place] [phone] Calcium 10.9(H) 8.5 - 10.3 mg/dL [facility] Comment:Testing performed by : [address] [phone] Bilirubin, total 0.6 0.1 - 1.2 mg/dL [facility] Comment:Testing performed by : [address] [phone] Protein, pl 7.3 6.5 - 8.5 g/dL [facility] Comment:Testing performed by : [address] [phone] Albumin 4.6 3.5 - 5.0 g/dL [facility] Comment:Testing performed by : [address] [phone] Alk phos 96 40 - 130 Units/L [facility] Comment:Testing performed by : [address] [phone] ALT 13 7 - 45 Units/L [facility] Comment:Testing performed by : [address] [phone] AST 20 10 - 45 Units/L [facility] Comment:Testing performed by : [address] [phone] Blood 06/19/2021 2:47 PM ELECTRICAL ELECTRONICS ENGINEER 06/19/2021 2:56 PM ELECTRICAL ELECTRONICS ENGINEER Eren Cr MD LAB BLOOD ORDERABLES Final Re sult [facility] One [facility] [place] [address] * (ABNORMAL) Chromogranin A (06/19/2021 2:47 PM ELECTRICAL ELECTRONICS ENGINEER) Chromogranin A 1630(H) <93 ng/mL [facility] Comment: Impaired renal or hepatic function or treatment with proton pump inhibitors may result in artifactual elevations of Chromogranin A. ADDITIONAL INFORMATION This test was developed and its performance characteristics determined by [facility] in a manner consistent with CLIA requirements. This test has not been cleared or approved by the U.S. Food and Drug Administration. The testing method is a homogeneous time-resolved immunofluorescent assay manufactured by [employer] and performed on the [employer]vo[employer] Compact Plus. ? Values obtained with different assay methods or kits may be different and cannot be used interchangeably. ? Test results cannot be interpreted as absolute evidence for the presence or absence of malignant disease. Test Performed by: [place] [address] Coin Machine Assembler: Immanuel Novak M.D. 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) Neuro-endocrine carcinoma (HCC) Other malignant neoplasm of unspecified site documented in this encounter Orders Appointment Requests Count Last Ordered Date Fi rst Ordered Date ONCBCN LAB APPOINTMENT 1 06/19/2021 documented in this encounter Care Teams Rod And Tube Straightener Relationship Specialty Start Date End Date Briseno, Julio César C., MD PCP - General 10/01/16 Eren Cr MD Referring Physician Medical Oncology 11/25/18 Yohana Bowen MD Radiation Oncologist Radiation Oncology 11/25/18 Sabrina Willard NP [address] [place] [phone] Nurse Practitioner Medical Oncology 08/17/20 11/26/21 documented as of this encounter
--- OUTSIDE RECORDS SUMMARY | 2024-06-26 02:10 | XMS_ITS | Encounter Summary ---
Author Organization [facility] Address [address] [place] [address] Phone Care Team Providers Care Food Safety Auditor Name Role Phone Julio César Briseno MD Primary Care Provider [phone] Eren Cr MD Unavailable [phone] Yohana Bowen MD Unavailable Sabrina Willard NP Unavailable [phone] Reason for Referral * Diagnostic Imaging (Routine) - Closed Specialty Diagnoses / Procedures Referred By Contac t Referred To Contact Diagnoses Neuroendocrine carcinoma (HCC) Procedures XR Humerus Left 2 or More Views Eren Cr MD [email or web address] [place] [address] Phone: tel: fax: [facility] Referral ID Status Reason Start Date Expiration Date Visits Re quested Visits Authorized [id number] Closed 07/04/2021 08/03/2022 1 1 SEWER Reason for Visit * Episode Based Medications (Routine) - Closed Specialty Diagnoses / Procedures Referred By Contac t Referred To Contact Diagnoses Neuro-endocrine carcinoma (HCC) Procedures study [id number] phase III cabozantinib Eren Cr MD [address] [facility] [address] [place] [address] Phone: tel: fax: [facility] [address] [facility] Advanced Medicine 7th [place] [address] Phone: tel: Referral ID Status Reason Start Date Expiration Date Visits Re quested Visits Authorized [id number] Closed 06/21/2021 06/26/2024 1 99 Encounter Details Date Type Department Care Team (Late st Contact Info) Description 07/04/2021 1:45 PM BUNG SEWER Office Visit [facility] [address] [place] [address] Eren Cr MD [address] [facility] [address] [place] [address] Neuroendocrine carcinoma (CMS/HCC) (HCC) (Primary Dx); Neuro-endocrine [...] on file Legal Sex Female 2:41 PM BUNG SEWER Gender Identity Not on file Sexual Orientation Straight 02/19/2021 9: 29 AM CDT Occupation Industry Job Start Date Job End Date retired Not on file Not on file Not on file documented as of this encounter Last Filed Vital Signs Vital Sign Reading Time Taken Comments Blood Pressure 110/60 07/04/2021 2:00 PM BUNG SEWER Pulse 82 07/04/2021 2:00 PM BUNG SEWER Temperature 36.4 ??C (97.6 ??F) 07/04/2021 2:00 PM CS T Respiratory Rate 16 07/04/2021 2:00 PM BUNG SEWER Oxygen Saturation 97% 07/04/2021 2:00 PM BUNG SEWER Inhaled Oxygen Concentration - - Weight 79.8 kg (176 lb) 07/04/2021 2:00 PM BUNG SEWER Height 158.8 cm (5' 2.5 ) 07/04/2021 2:00 PM BUNG SEWER Body Mass Index 31.68 07/04/2021 2:00 PM BUNG SEWER documented in this encounter Progress Notes * Eren rC Jr., MD - 07/04/2021 1:45 PM CST [...] time, she also underwent [facility] OR by Dr. Greyson Reeves. Biopsy [...] No rashes over exposed skin NEURO: A&Ox4, supervisor costuming grossly intact by conversation, moving all extremities [...] bone lesion Eren Cr MD Medical Oncology SEWER documented in this encounter Plan of Treatment Not on file documented as of this encounter Results * XR Humerus Left 2 or More Views (07/04/2021 3:06 PM BUNG SEWER) Anatomical Region Laterality Modality Upper Extremities, Upper Arm Left Com puted Radiography 07/04/2021 3:15 PM BUNG SEWER Impressions 07/04/2021 3:15 PM BUNG SEWER 1. ??Subtle sclerotic metastatic lesion in the mid shaft of the left humerus. No pathologic fracture. Electronically signed by: Petros Viveros M.D. Narrative 07/04/2021 3:15 PM BUNG SEWER EXAMINATION: Left humerus 2 or more views [...] 021 documented in this encounter Care Teams Food Safety Auditor Relationship Specialty Start Date End Date Julio César Briseno MD PCP - General 10/01/16 Eren Cr MD Referring Physician Medical Oncology 11/25/18 Yohana Bowen MD Radiation Oncologist Radiation Oncology 11/25/18 Sabrina Willard NP [address] [place] [address] Nurse Practitioner Medical Oncology 08/17/20 11/26/21 documented as of this encounter
--- OUTSIDE RECORDS SUMMARY | 2024-06-26 02:10 | XMS_ITS | Encounter Summary ---
Author Organization [facility] Address [address] [place] [address] Phone Care Team Providers Care Paper Finisher Name Role Phone Julio César Briseno MD Primary Care Provider Eren Cr MD Unavailable [phone] Yohana Bowen MD Unavailable Sabrina Willard NP Unavailable [phone] Encounter Details Date Type Department Care Team (Late st Contact Info) Description 07/06/2021 Orders Only [facility] Oncology [address] [facility] Advanced Medicine 7th [place] [address] [place] [id number] Eren Cr MD [address] [place] [address] Neuro-endocrine carcinoma (CMS/HCC) (HCC) (Primary Dx) Social [...] file Legal Sex Female 2:41 PM SALES REPRESENTATIVE SUPERVISOR Gender Identity Not on file Sexual Orientation Straight 02/19/2021 9: 29 AM CDT Occupation Industry Job Start Date Job End Date retired Not on file Not on file Not on file documented as of this encounter Plan of Treatment Not on file documented as of this encounter Results * TSH (07/17/2021 1:58 PM SALES REPRESENTATIVE SUPERVISOR) Pathologist [facility] Thyroid Stimulating Hormone 3.03 0.30 - 4.20 mcIUnit/mL [facility] Blood 07/17/2021 1:58 PM SALES REPRESENTATIVE SUPERVISOR 07/17/2021 2:16 PM SALES REPRESENTATIVE SUPERVISOR Eren Cr MD LAB BLOOD ORDERABLES Final Re sult Performing Organization Address [facility] Co de Phone Number [facility] Department [place] [address] * Magnesium (07/17/2021 1:58 PM SALES REPRESENTATIVE SUPERVISOR) [facility] Magnesium 1.9 1.4 - 2.5 mg/dL [facility] Comment:Testing performed by : [facility], [address] [place] [id number] Blood 07/17/2021 1:58 PM SALES REPRESENTATIVE SUPERVISOR 07/17/2021 2:01 PM SALES REPRESENTATIVE SUPERVISOR Eren Cr MD LAB BLOOD ORDERABLES Final Re sult Performing Organization Address [facility]/ZIP Co de Phone Number [facility] [place] [address] * Protein / creatinine ratio, urine, random (07/17/2021 1:35 PM SALES REPRESENTATIVE SUPERVISOR) [facility] Protein, ur, quant 35.0 mg/dL [facility] Comment: Interpretive Data No reference range established. Current interpretive data was last revised 2018. Creatinine Ur 359.8 mg/dL [facility] Comment: Interpretive Data No reference range established. Current interpretive data was last revised 2018. Protein/creatinin e ratio 97.3 0.0 - 180.0 mg/g [facility] Urine 07/17/2021 1:35 PM SALES REPRESENTATIVE SUPERVISOR 07/17/2021 2:32 PM SALES REPRESENTATIVE SUPERVISOR us Eren Cr MD LAB URINE ORDERABLES Final Re sult [facility] Department [place] [address] documented in this encounter Visit Diagnoses Diagnosis Neuro-endocrine carcinoma (HCC)- Primary Other malignant neoplasm of unspecified site documented in this encounter Care Teams Paper Finisher Relationship Specialty Start Date End Date Julio César Briseno MD PCP - General 10/01/16 Eren Cr MD Referring Physician Medical Oncology 11/25/18 Yohana Bowen MD Radiation Oncologist Radiation Oncology 11/25/18 Sabrina Willard NP [address] [place] [address] Nurse Practitioner Medical Oncology 08/17/20 11/26/21 documented as of this encounter
--- OUTSIDE RECORDS SUMMARY | 2024-06-26 02:10 | XMS_ITS | Encounter Summary ---
Author Organization [facility] Address [address] [place] [address] Care Team Providers Care Closing Coordinator Name Role Phone Julio César Briseno MD Primary Care Provider [phone] Eren Cr MD Unavailable [phone] Yohana Bowen MD Unavailable Sabrina Willard NP Unavailable [phone] Reason for Referral * Diagnostic Imaging (Routine) - Closed Specialty Diagnoses / Procedures Referred By Contac t Referred To Contact Diagnoses Neuroendocrine carcinoma (HCC) Procedures XR Humerus Left 2 or More Views Eren Cr MD [address] [address] [place] [address] Phone: tel: fax: [facility] Referral ID Status Reason Start Date Expiration Date Visits Re quested Visits Authorized [id number] Closed 07/04/2021 08/03/2022 1 1 IAC NURSE SPECIALIST Reason for Visit * Diagnostic Imaging (Routine) - Closed Specialty Diagnoses / Procedures [facility] Referred To Contact Diagnoses Neuroendocrine carcinoma (HCC) Procedures XR Humerus Left 2 or More Views Eren Cr MD [address] [address] [place] [address] Phone: tel: fax: [facility] Referral ID Status Reason Start Date Expiration Date Visits Re quested Visits Authorized [id number] Closed 07/04/2021 08/03/2022 1 1 Encounter Details Date Type Department Care Team (Latest Contact Info) Description 07/04/2021 2:55 PM CARDIAC NURSE SPECIALIST - 07/04/2021 11:59 PM CARDIAC NURSE SPECIALIST Hospital Encounter [facility] Radiology at [facility] [address] [place] [address] Eren Cr MD [address] [facility] [address] [place] [address] Neuroendocrine carcinoma (CMS/HCC) (HCC) Discharge Disposition: Discharge [...] file Legal Sex Female 2:41 PM CARDIAC NURSE SPECIALIST Gender Identity Not on file [...] capsuleIndications :supplement Take 1 tablet by mouth sample distributor before breakfast 07/04/2016 4 cholecalciferol (VITAMIN D-3) 2,000 unit capsule Take 1 capsule (2,000 Units total) by mouth daily 30 capsule 2 04/25/2019 3 cholestyramine (QUESTRAN) 4 gram packet Take 1 packet by mouth 3 (three) times a day with meals 270 packet 3 09/04/2019 2 clotrimazole-betam ethasone (LOTRISONE) cream Apply 1 Application topically daily as needed (rash) 4 coenzyme [id number] E 100-5 mg-unit capsuleIndications :supplement Take 1 tablet by mouth sample distributor before breakfast 4 denosumab (XGEVA) 120 mg/1.7 [...] Read Routine (OP Routine) 07/04/2021 3:06 PM CARDIAC NURSE SPECIALIST Neuroendocrine carcinoma (CMS/HCC) (HCC) documented in this encounter Results * XR Humerus Left 2 or More Views (07/04/2021 3:06 PM CARDIAC NURSE SPECIALIST) Anatomical Region Laterality Modality Upper Extremities, Upper Arm Left Com puted Radiography 07/04/2021 3:15 PM CARDIAC NURSE SPECIALIST Impressions 07/04/2021 3:15 PM CARDIAC NURSE SPECIALIST 1. ??Subtle sclerotic metastatic lesion in the mid shaft of the left humerus. No pathologic fracture. Electronically signed by: Petros Viveros M.D. Narrative 07/04/2021 3:15 PM CARDIAC NURSE SPECIALIST EXAMINATION: Left humerus 2 or more views [...] site documented in this encounter Care Teams Closing Coordinator Relationship Specialty Start Date End Date Julio César Briseno MD PCP - General 10/01/16 Eren Cr MD Referring Physician Medical Oncology 11/25/18 Yohana Bowen MD Radiation Oncologist Radiation Oncology 11/25/18 Sabrina Willard NP [address] [place] [address] Nurse Practitioner Medical Oncology 08/17/20 11/26/21 documented as of this encounter
--- OUTSIDE RECORDS SUMMARY | 2024-06-26 02:10 | XMS_ITS | Encounter Summary ---
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) Procedures CA DENOSUMAB INJECTION DENOSUMAB (XGEVA) Eren Cr MD [address] [facility] [address] [place] [address] Phone: tel: fax: [facility] [address] [facility] Advanced Medicine 7th [place] [address] Phone: tel: Referral ID Status Reason Start Date Expiration Date V isits Requested Visits Authorized [id number] Authorized 03/02/2019 10/06/2024 1 60 Encounter Details Date Type Department Care Team (Latest Contact Info) Description 07/13/2021 12:26 PM LUMBER STRAIGHTENER - 07/13/2021 3:26 PM LUMBER STRAIGHTENER Hospital Encounter [facility] Advanced Medicine ([facility]) [facility] [place] [address] Eren Cr MD [address] [place] [address] [address] [place] [address] Neuroendocrine carcinoma (CMS/HCC) (HCC) (Primary Dx); Bone [...] file Legal Sex Female 2:41 PM LUMBER STRAIGHTENER Gender Identity Not on file Sexual Orientation Straight 02/19/2021 9: 29 AM CDT Occupation Industry Job Start Date Job End Date retired Not on file Not on file Not on file documented as of this encounter Last Filed Vital Signs Vital Sign Reading Time Taken Comments Blood Pressure 147/61 07/13/2021 2:54 PM LUMBER STRAIGHTENER Pulse 66 07/13/2021 2:54 PM LUMBER STRAIGHTENER Temperature 36.8 ??C (98.2 ??F) 07/13/2021 2:54 PM CS T Respiratory Rate 18 07/13/2021 2:54 PM LUMBER STRAIGHTENER Oxygen Saturation 98% 07/13/2021 2:54 PM LUMBER STRAIGHTENER Inhaled Oxygen Concentration - - Weight - - Height - - Body Mass Index - - documented in this encounter Discharge Diagnoses Diagnosis Other malignant neuroendocrine tumors (HCC) - OTHER MALIGNANT NEUROENDOCRINE TUMORS Secondary malignant neoplasm of bone (CMS/HCC) (HCC) - SECONDARY MALIGNANT NEOPLASM OF BONE documented in this encounter Discharge Instructions * Patient Instructions* Denisha Raymundo RN - 07/13/2021 2:43 PM LUMBER STRAIGHTENER .After 4:30 PM during the week, on weekends and holidays, call [phone] and ask to have the Boiling Off Winder Physician paged for you. Saturday through Saturday, 8 AM to 4:30 PM, call [phone] [facility] Oncology Physician at [facility] and ask for a member of [...] any non-prescription medicine without your doctor's approval ER STRAIGHTENER documented in this encounter Medications at Time [...] capsuleIndications :supplement Take 1 tablet by mouth chinese medicine practitioner before breakfast 07/04/2016 4 cholecalciferol (VITAMIN D-3) 2,000 unit capsule Take 1 capsule (2,000 Units total) by mouth daily 30 capsule 2 04/25/2019 3 cholestyramine (QUESTRAN) 4 gram packet Take 1 packet by mouth 3 (three) times a day with meals 270 packet 3 09/04/2019 2 clotrimazole-betam ethasone (LOTRISONE) cream Apply 1 Application topically daily as needed (rash) 4 coenzyme [id number] E 100-5 mg-unit capsuleIndications :supplement Take 1 tablet by mouth chinese medicine practitioner before breakfast 4 denosumab (XGEVA) 120 mg/1.7 [...] to patient . Discharged in stable condition. ER STRAIGHTENER * Denisha Raymundo RN - 07/13/2021 1:16 PM CST Pt arrived to [facility] for 1 L of NS and labs, accompanied by family. Reviewed todays plan of care with the patient and is agreeable with this plan. Pt is sitting in the chair / bed in comfortable position. ER STRAIGHTENER documented in this encounter Plan of Treatment Not on file documented as of this encounter Procedures Procedure Name Priority Date/Time Associated Diagnosis Comments CALCIUM LEVEL Routine 07/13/2021 2:52 PM LUMBER STRAIGHTENER Neuroendocrine carcinoma (CMS/HCC) (HCC) EGFR Routine 07/13/2021 12:56 PM LUMBER STRAIGHTENER Neuroendocrine carcinoma (CMS/HCC) (HCC) DIFFERENTIAL AUTO Routine 07/13/2021 12: 56 PM LUMBER STRAIGHTENER Neuroendocrine carcinoma (CMS/HCC) (HCC) CBC WITH AUTO DIFFERENTIAL Routine 07/13/2021 12:56 PM LUMBER STRAIGHTENER Neuroendocrine carcinoma (CMS/HCC) (HCC) COMPREHENSIVE METABOLIC PANEL Routine 07/13/2021 12:56 PM LUMBER STRAIGHTENER Neuroendocrine carcinoma (CMS/HCC) (HCC) documented in this encounter Results * Calcium level (07/13/2021 2:52 PM LUMBER STRAIGHTENER) Calcium 9.4 8.5 - 10.3 mg/dL [facility] Blood 07/13/2021 2:52 PM LUMBER STRAIGHTENER 07/13/2021 3:57 PM LUMBER STRAIGHTENER us Eren Cr MD LAB BLOOD ORDERABLES Final Re sult [facility] Department [place] [address] * (ABNORMAL) eGFR (07/13/2021 12:56 PM LUMBER STRAIGHTENER) eGFR 57(L) 90 - 130 mL/min/1. 73 [...] reviewed 2021. Blood 07/13/2021 12:5 6 PM LUMBER STRAIGHTENER 07/13/2021 1:07 PM LUMBER STRAIGHTENER us Eren Cr MD LAB BLOOD ORDERABLES Final Re sult [facility] Department [place] [address] * (ABNORMAL) Differential, auto (07/13/2021 12:56 PM LUMBER STRAIGHTENER) Neutrophil abs 3.6 1.7 - 6.5 K/cumm [facility] Imm gran abs 0.0 0.0 - [...] on 2017. Blood 07/13/2021 12:5 6 PM LUMBER STRAIGHTENER 07/13/2021 1:07 PM LUMBER STRAIGHTENER Eren Cr MD LAB BLOOD ORDERABLES Final Re sult [facility] Department [place] [address] * (ABNORMAL) Comprehensive metabolic panel (07/13/2021 12:56 PM LUMBER STRAIGHTENER) Sodium 138 135 - 145 mmol/L [facility] [...] falsely elevated Blood 07/13/2021 12:5 6 PM LUMBER STRAIGHTENER 07/13/2021 1:07 PM LUMBER STRAIGHTENER us Eren Cr MD LAB BLOOD ORDERABLES Final Re sult Performing Organization Address City/[facility] Co de Phone Number [facility] Department [place] [address] * CBC with auto differential (07/13/2021 12:56 PM LUMBER STRAIGHTENER) Pathologist [facility] WBC 4.9 3.8 - 9.9 K/cumm [facility] Blood 07/13/2021 12:5 6 PM LUMBER STRAIGHTENER 07/13/2021 1:07 PM LUMBER STRAIGHTENER Eren Cr MD LAB BLOOD ORDERABLES Final Re sult Performing Organization Address City/[facility]/ZIP Co de Phone Number [facility] Department [place] [address] documented in this encounter Visit Diagnoses Diagnosis [...] metastasis,Neuro-endocrine carcinoma (HCC) Given 07/13/2021 12:57 PM LUMBER STRAIGHTENER 8 mg sodium chloride 0.9% bolus 1,000 mL 1,000 mL, intravenous, at 500 mL/hr, Administer over 2 Hours, Once, On Lydia 07/13/21 at 1300, For 1 doseIndications:Bone metastasis,Neuro-endocrine carcinoma (HCC) New Bag 07/13/2021 12:57 PM LUMBER STRAIGHTENER 1,000 mL 500 mL/hr documented in this encounter Active and Recently Administered Medications Times are shown in LUMBER STRAIGHTENER. Scheduled Medication Order 07/11/2021 07/12/2021 07/13/2021 ondansetron [...] 07/13/2021 documented in this encounter Care Teams Space Officer Relationship Specialty Start Date End Date Julio César Briseno MD PCP - General 10/01/16 Eren Cr MD Referring Physician Medical Oncology 11/25/18 Yohana Bowen MD Radiation Oncologist Radiation Oncology 11/25/18 Sabrina Willard NP [address] [place] [address] Nurse Practitioner Medical Oncology 08/17/20 11/26/21 documented as of this encounter
--- OUTSIDE RECORDS SUMMARY | 2024-06-26 02:10 | XMS_ITS | Encounter Summary ---
Author Organization [facility] Address [address] [place] [address] Phone Care Team Providers Care Opto Mechanical Technician Name Role Phone Julio César Briseno MD Primary Care Provider Eren Cr MD Unavailable [phone] Yohana Bowen MD Unavailable Sabrina Willard NP Unavailable Encounter Details Date Type Department Care Team (Late st Contact Info) Description 06/21/2021 Orders Only [facility] Oncology [address] [facility] 7th [place] [address] [place] [address] Eren Cr MD [address] [facility] [address] [place] [address] Neuro-endocrine carcinoma (CMS/HCC) (HCC) (Primary Dx) Social [...] on file Legal Sex Female 2:41 PM AMUSEMENT RIDE INSPECTOR Gender Identity Not on file Sexual Orientation Straight 02/19/2021 9: 29 AM CDT Occupation Industry Job Start Date Job End Date retired Not on file Not on file Not on file documented as of this encounter Plan of Treatment Not on file documented as of this encounter Results * Protein / creatinine ratio, urine, random (07/04/2021 1:45 PM AMUSEMENT RIDE INSPECTOR) Protein, ur, quant 14.0 mg/dL [facility] Comment: Interpretive Data No reference range established. Current interpretive data was last revised 2018. Creatinine Ur 168.8 mg/dL [facility] Comment: Interpretive Data No reference range established. Current interpretive data was last revised 2018. Protein/creatinin e ratio 82.9 0.0 - 180.0 mg/g CR [facility] Urine 07/04/2021 1:45 PM AMUSEMENT RIDE INSPECTOR 07/04/2021 3:39 PM AMUSEMENT RIDE INSPECTOR us Eren Cr MD LAB URINE ORDERABLES Final Re sult [facility] Department [place] [address] * (ABNORMAL) Chromogranin A (07/04/2021 1:44 PM AMUSEMENT RIDE INSPECTOR) Pathologist [facility] Department Chromogranin A 1364(H) <93 ng/mL [facility] Comment: Impaired renal or hepatic function or treatment with proton pump inhibitors may result in artifactual elevations of Chromogranin A. ADDITIONAL INFORMATION This test was developed and its performance characteristics determined by [facility] in a manner consistent with CLIA requirements. This test has not been cleared or approved by the U.S. Food and Drug Administration. The testing method is a homogeneous time-resolved immunofluorescent assay manufactured by [employer] and performed on the [employer] Kryptor Compact Plus. ? Values obtained with different assay methods or kits may be different and cannot be used interchangeably. ? Test results cannot be interpreted as absolute evidence for the presence or absence of malignant disease. Test Performed by: [facility] [address] [place] [address] Grinding And Spraying Supervisor: Immanuel Novak M.D. Ph.D.; CLIA# [id number] Blood 07/04/2021 1:44 PM AMUSEMENT RIDE INSPECTOR 07/04/2021 4:13 PM AMUSEMENT RIDE INSPECTOR Eren Cr MD LAB BLOOD ORDERABLES Final Re sult Performing Organization Address [facility] Co de Phone Number [facility] [place] [address] * TSH (07/04/2021 1:44 PM AMUSEMENT RIDE INSPECTOR) Thyroid Stimulating Hormone 4.11 0.30 - 4.20 mcIUnit/mL [facility] Blood 07/04/2021 1:44 PM AMUSEMENT RIDE INSPECTOR 07/04/2021 3:33 PM AMUSEMENT RIDE INSPECTOR Eren Cr MD LAB BLOOD ORDERABLES Final Re sult Performing Organization Address [facility] Co de Phone Number [facility] [place] [address] * Phosphorus (07/04/2021 1:44 PM AMUSEMENT RIDE INSPECTOR) Phosphorus, pl 2.5 2.3 - 4.5 mg/dL [facility] Blood 07/04/2021 1:44 PM AMUSEMENT RIDE INSPECTOR 07/04/2021 1:46 PM AMUSEMENT RIDE INSPECTOR Eren Cr MD LAB BLOOD ORDERABLES Final Re sult Performing Organization Address [facility] Co de Phone Number [facility] [place] [address] * Magnesium (07/04/2021 1:44 PM AMUSEMENT RIDE INSPECTOR) Magnesium 1.8 1.4 - 2.5 mg/dL [facility] Blood 07/04/2021 1:44 PM AMUSEMENT RIDE INSPECTOR 07/04/2021 1:46 PM AMUSEMENT RIDE INSPECTOR Eren Cr MD LAB BLOOD ORDERABLES Final Re sult [facility] Department [place] [address] * Comprehensive metabolic panel (07/04/2021 1:44 PM AMUSEMENT RIDE INSPECTOR) Pathologist [facility] Sodium 140 135 - 145 mmol/L [facility] Potassium, pl 4.1 3.3 - 4.9 mmol/L [facility] Chloride 105 97 - 110 mmol/L [facility] CO2 28 22 - 32 mmol/L [facility] Anion gap 7 2 - 15 mmol/L [facility] BUN 9 8 - 25 mg/dL [facility] Creatinine 0.91 0.60 - 1.10 mg/dL [facility] Glucose 112 70 - 199 mg/dL [facility] Comment: Interpretive Data Fasting glucose >/= [...] 2017. Calcium 10.3 8.5 - 10.3 mg/dL [facility] Bilirubin, total 0.3 0.1 - 1.2 mg/dL [facility] Protein, pl 7.0 6.5 - 8.5 g/dL [facility] Albumin 4.3 3.5 - 5.0 g/dL [facility] Alk phos 86 40 - 130 Units/L [facility] ALT 15 7 - 45 Units/L [facility] AST 22 10 - 45 Units/L [facility] Blood 07/04/2021 1:44 PM AMUSEMENT RIDE INSPECTOR 07/04/2021 1:46 PM AMUSEMENT RIDE INSPECTOR us Eren Cr MD LAB BLOOD ORDERABLES Final Re sult Performing Organization Address City/[facility]/ZIP Co de Phone Number [facility] Department [place] [address] * CBC with auto differential (07/04/2021 1:44 PM AMUSEMENT RIDE INSPECTOR) WBC 5.1 3.8 - 9.9 K/cumm [facility] Hgb 13.1 11.9 - 15.5 g/dL [facility] Hct 40.2 35.6 - 45.5 % [facility] Plt 152 150 - 400 K/cumm [facility] MPV 10.2 9.1 - 12.3 fL [facility] RBC 4.30 3.90 - 5.20 M/cumm [facility] MCV 93.5 81.3 - 96.4 fL [facility] MCH 30.5 27.1 - 33.3 pg [facility] MCHC 32.6 32.3 - 35.7 g/dL [facility] RDW CV 13.7 11.1 - 14.9 % [facility] RDW SD 45.8 35.7 - 48.1 fL [facility] NRBC abs 0.00 0.00 - 0.01 K/cumm [facility] Blood 07/04/2021 1:44 PM AMUSEMENT RIDE INSPECTOR 07/04/2021 1:46 PM AMUSEMENT RIDE INSPECTOR us Eren Cr MD LAB BLOOD ORDERABLES Final Re sult [facility] [place] [address] documented in this encounter Visit Diagnoses Diagnosis Neuro-endocrine carcinoma (HCC)- Primary Other malignant neoplasm of unspecified site documented in this encounter Orders Appointment Requests Count Last Ordered Date Fi rst Ordered Date ONCBCN CLINIC APPOINTMENT REQUEST 1 021 ONCBCN LAB APPOINTMENT 1 07/04/2021 documented in this encounter Care Teams Opto Mechanical Technician Relationship Specialty Start Date End Date Julio César Briseno MD PCP - General 10/01/16 Eren Cr MD Referring Physician Medical Oncology 11/25/18 Yohana Bowen MD Radiation Oncologist Radiation Oncology 11/25/18 Sabrina Willard NP [address] [place] [address] Nurse Practitioner Medical Oncology 08/17/20 11/26/21 documented as of this encounter
--- OUTSIDE RECORDS SUMMARY | 2024-06-26 02:10 | XMS_ITS | Encounter Summary ---
Author Organization [facility] Address [address] [place] [address] Phone Care Team Providers Care Transport Truck Driver Name Role Phone Julio César Briseno MD Primary Care Provider [phone] Eren Cr MD Unavailable [phone] Yohana Bowen MD Unavailable Sabrina Willard NP Unavailable [phone] Reason for Visit * Reason Onset Date Comments Appointment 06/20/2021 Encounter Details Date Type Department Care Team (Late st Contact Info) Description 06/20/2021 Telephone [facility] Oncology [address] [facility] 7th [place] [address] Kyle Maharaj RMA Appointment Social [...] on file Legal Sex Female 2:41 PM IS CONSULTANT Gender Identity Not on file Sexual Orientation Straight 02/19/2021 9: 29 AM CDT Occupation Industry Job Start Date Job End Date retired Not on file Not on file Not on file documented as of this encounter Miscellaneous Notes * Telephone Encounter - NickoKyle loaiza RMA - 06/20/2021 9:05 AM IS CONSULTANT Patient has been made aware of the DOS time and location; pre arrival instructions were given CONSULTANT * Telephone Encounter - Nicko GraceleoISABELLA - 06/20/2021 9:02 AM IS CONSULTANT ----- Message from Sola Heredia sent at 06/19/2021 5:25 PM IS CONSULTANT ----- Regarding: RE: appt. req Just added them, thank you, sorry for the delay ----- Message ----- From: Kyle Maharaj RMA Sent: 06/19/2021 5:20 PM IS CONSULTANT To: [facility] Eren Cr Clinical Support Subject: appt. req Good afternoon Will the patient need any addtl appts., is so please enter in the Active Appt. Requests Thanking you in advance CONSULTANT documented in this encounter Plan of Treatment Not on file documented as of this encounter Visit Diagnoses Not on filedocumented in this encounter Care Teams Transport Truck Driver Relationship Specialty Start Date End Date Julio César Briseno MD PCP - General 10/01/16 Eren Cr MD Referring Physician Medical Oncology 11/25/18 Yohana Bowen MD Radiation Oncologist Radiation Oncology 11/25/18 Sabrina Willard, CECILIA [address] [place] [address] Nurse Practitioner Medical Oncology 08/17/20 11/26/21 documented as of this encounter
--- OUTSIDE RECORDS SUMMARY | 2024-06-26 02:10 | XMS_ITS | Encounter Summary ---
Author Organization [facility] Address [address] [place] [address] Phone Care Team Providers Care Blacksmith Hammer Operator Name Role Phone Julio César Briseno MD Primary Care Provider [phone] Eren Cr MD Unavailable [phone] Yohana Bowen MD Unavailable Sabrina Willard NP Unavailable [phone] Reason for Visit * Reason Comments Injections sandostatin * Episode Based Medications (Routine) - Authorized Specialty Diagnoses / Procedures Referred By Contac t Referred To Contact Oncology Diagnoses Neuroendocrine carcinoma (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 Oncology [address]th [place] [address] Neuroendocrine carcinoma (CMS/HCC) (HCC) (Primary Dx); Malignant [...] on file Legal Sex Female 2:41 PM DOUBLER OPERATOR Gender Identity Not on file Sexual Orientation Straight 02/19/2021 9: 29 AM CDT Occupation Industry Job Start Date Job End Date retired Not on file Not on file Not on file documented as of this encounter Nursing Notes * Lisseth Parker, [place] - 07/17/2021 2:45 PM CST Oncology Nursing Note [facility] ON[facility] La Chung is a 70 [...] Ambulatory Accompanied by: Self Discharged To: Home LER OPERATOR documented in this encounter Plan of [...] metastasis,Neuro-endocrine carcinoma (HCC) Given 07/17/2021 4:16 PM DOUBLER OPERATOR 120 mg Right Lower Abdomen octreotide LAR (SandoSTATIN LAR) extended release intramuscular injection 30 mg 30 mg, intramuscular, Once, On Sat07/17/21 at 1600, For 1 dose, Refrigerate. For IM intragluteal administration only- alternate gluteal sites. Shake.Indications:Malignan t neoplasm metastatic to liver (HCC),Neuroendocrine carcinoma (HCC) Given 07/17/2021 4:21 PM DOUBLER OPERATOR 30 mg Left Dorsogluteal/Butto ck documented in this encounter Orders Medications Ordered That Brett ht Not Have Been Administered Count Last Ordered Date First Ordered Date INV-[id number] cabozantinib/pl acebo (08-122/[id number]) tablet 60 mg 1 07/17/2021 Nursing Count Last Ordered Date First Orde red Date ONCBCN NURSING COMMUNICATION [id number] 1 0 07/17/2021 PHYSICIAN COMMUNICATION ORDER 1 07/17/2021 Appointment Requests Count Last Ordered Date Fi rst Ordered Date ONCBCN INJECTION APPOINTMENT REQUEST 1 07/08 documented in this encounter Care Teams Blacksmith Hammer Operator Relationship Specialty Start Date End Date Julio César Briseno MD PCP - General 10/01/16 Eren Cr MD Referring Physician Medical Oncology 11/25/18 Yohana Bowen MD Radiation Oncologist Radiation Oncology 11/25/18 Sabrina Willard NP [address] [place] [address] Nurse Practitioner Medical Oncology 08/17/20 11/26/21 documented as of this encounter
--- OUTSIDE RECORDS SUMMARY | 2024-06-26 02:10 | XMS_ITS | Encounter Summary ---
Author Organization [facility] Address [address] [place] [address] Phone Care Team Providers Care Tray Setter Name Role Phone Julio César Briseno MD Primary Care Provider Eren Cr MD Unavailable Yohana Bowen MD Unavailable Sabrina Willard NP Unavailable [phone] Encounter Details Date Type Department Care Team (Late st Contact Info) Description 06/19/2021 Orders Only [facility] Oncology [address] [facility] Advanced Medicine 7th [place] [address] [place] [address] Eren Cr MD [address] [facility] [address] [place] [address] Social History Tobacco Use Types Packs/Day Years [...] file Legal Sex Female 2:41 PM TEST AND BALANCE ENGINEER Gender Identity Not on file Sexual Orientation Straight 02/19/2021 9: 29 AM CDT Occupation Industry Job Start Date Job End Date retired Not on file Not on file Not on file documented as of this encounter Plan of Treatment Not on file documented as of this encounter Visit Diagnoses Not on filedocumented in this encounter Care Teams Tray Setter Relationship Specialty Start Date End Date Julio César Briseno MD PCP - General 10/01/16 Eren Cr MD Referring Physician Medical Oncology 11/25/18 Yohana Bowen MD Radiation Oncologist Radiation Oncology 11/25/18 Sabrina Willard NP [address] [place] [address] Nurse Practitioner Medical Oncology 08/17/20 11/26/21 documented as of this encounter
--- OUTSIDE RECORDS SUMMARY | 2024-06-26 02:10 | XMS_ITS | Encounter Summary ---
Author Organization [facility] Address [address] [place] [address] Phone Care Team Providers Care Cigar Making Machine Supervisor Name Role Phone Julio César Briseno MD Primary Care Provider [phone] Eren Cr MD Unavailable [phone] Yohana Bowen MD Unavailable Sabrina Willard NP Unavailable [phone] Encounter Details Date Type Department Care Team (Late st Contact Info) Description 07/17/2021 Orders Only [facility] Oncology [address] [place] [address] Rupali Kohler RN Social History Tobacco Use [...] on file Legal Sex Female 2:41 PM INSERTER PROMOTIONAL ITEM Gender Identity Not on file Sexual Orientation Straight 02/19/2021 9: 29 AM CDT Occupation Industry Job Start Date Job End Date retired Not on file Not on file Not on file documented as of this encounter Plan of Treatment Not on file documented as of this encounter Visit Diagnoses Not on filedocumented in this encounter Care Teams Cigar Making Machine Supervisor Relationship Specialty Start Date End Date Julio César Briseno MD PCP - General 10/01/16 Eren Cr MD Referring Physician Medical Oncology 11/25/18 Yohana Bowen MD Radiation Oncologist Radiation Oncology 11/25/18 Sabrina Willard NP [address] [place] [address] Nurse Practitioner Medical Oncology 08/17/20 11/26/21 documented as of this encounter
--- OUTSIDE RECORDS SUMMARY | 2024-06-26 02:10 | XMS_ITS | Encounter Summary ---
Author Organization [facility] Address [address] [place] [address] Phone Care Team Providers Care Certified Substance Abuse Counselor Name Role Phone Julio César Briseno MD Primary Care Provider [phone] Eren Cr MD Unavailable [phone] Yohana Bowen MD Unavailable Sabrina Willard NP Unavailable [phone] Encounter Details Date Type Department Care Team (Late st Contact Info) Description 06/28/2021 Orders Only [facility] Oncology [address] [facility] Advanced Medicine 7th [place] [address] [place] [address] Elaine Coy Neuroendocrine carcinoma (CMS/HCC) (HCC) (Primary [...] file Legal Sex Female 2:41 PM DOPE MIXER Gender Identity Not on file Sexual Orientation Straight 02/19/2021 9: 29 AM CDT Occupation Industry Job Start Date Job End Date retired Not on file Not on file Not on file documented as of this encounter Plan of Treatment Not on file documented as of this encounter Results * aPTT (07/04/2021 1:44 PM DOPE MIXER) aPTT 28 27 - 37 sec [facility] Comment: Interpretive Data Therapeutic heparin range: 60.0 - 94.0 seconds. Based on correlation with therapeutic heparin activity range of 0.3-0.7 Units/mL. Current interpretive data was last revised on 2020. Blood 07/04/2021 1:44 PM DOPE MIXER 07/04/2021 3:33 PM DOPE MIXER Eren Cr MD LAB BLOOD ORDERABLES Final Re sult Performing Organization Address [facility] de Phone Number [facility] [place] [address] * Protime-INR (07/04/2021 1:44 PM DOPE MIXER) PT 10.3 9.5 - 13.6 sec [facility] INR 0.9 0.9 - 1.2 [facility] Comment: Interpretive data Oral anticoagulant therapeutic ranges: Venous thromboembolism prophylaxis or treatment: 2.0-3.0 CARDIOLOGY Standard range: 2.0-3.0 High-intensity range: 2.5-3.5 Refer to indication-specific guidelines for appropriate target ranges for prosthetic heart valve replacement. Current interpretive data was last revised on 2019. Blood 07/04/2021 1:44 PM DOPE MIXER 07/04/2021 3:33 PM DOPE MIXER Eren Cr MD LAB BLOOD ORDERABLES Final Re sult Performing Organization Address [facility] Co de Phone Number [facility] [place] [address] documented in this encounter Visit Diagnoses Diagnosis Neuroendocrine carcinoma (HCC)- Primary Other malignant neoplasm of unspecified site documented in this encounter Care Teams Certified Substance Abuse Counselor Relationship Specialty Start Date End Date Julio César Briseno MD PCP - General 10/01/16 Eren Cr MD Referring Physician Medical Oncology 11/25/18 Yohana Bowen MD Radiation Oncologist Radiation Oncology 11/25/18 Sabrina Willard NP [address] [place] [address] Nurse Practitioner Medical Oncology 08/17/20 11/26/21 documented as of this encounter
--- OUTSIDE RECORDS SUMMARY | 2024-06-26 02:10 | XMS_ITS | Encounter Summary ---
Author Organization [facility] Address [address] [place] [address] Phone Care Team Providers Care Screwdown Operator Name Role Phone Julio César Briseno MD Primary Care Provider [phone] Eren Cr MD Unavailable [phone] Yohana Bowen MD Unavailable Sabrina Willard NP Unavailable Encounter Details Date Type Department Care Team (Late st Contact Info) Description 06/22/2021 Orders Only [facility] Oncology [address] [facility] Advanced Medicine 7th [place] [address] [place] [address] Eren Cr MD [address] [facility] [address] [place] [address] Neuroendocrine carcinoma (CMS/HCC) (HCC) (Primary Dx) Social [...] on file Legal Sex Female 2:41 PM 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
--- OUTSIDE RECORDS SUMMARY | 2024-06-26 02:10 | XMS_ITS | Encounter Summary ---
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 7th [place] [address] [place] [id number] Eren Cr MD [address] [facility] [address] [place] [address] Neuro-endocrine carcinoma (CMS/HCC) (HCC) (Primary Dx); Malignant [...] on file Legal Sex Female 2:41 PM BRICKMASON Gender Identity Not on file Sexual Orientation Straight 02/19/2021 9: 29 AM CDT Occupation Industry Job Start Date Job End Date retired Not on file Not on file Not on file documented as of this encounter Last Filed Vital Signs Vital Sign Reading Time Taken Comments Blood Pressure 112/55 06/19/2021 3:02 PM BRICKMASON Pulse 85 06/19/2021 3:02 PM BRICKMASON Temperature 36.7 ??C (98.1 ??F) 06/19/2021 3:02 PM CS T Respiratory Rate 16 06/19/2021 3:02 PM BRICKMASON Oxygen Saturation 97% 06/19/2021 3:02 PM BRICKMASON Inhaled Oxygen Concentration - - Weight 78 kg (172 lb) 06/19/2021 3:02 PM BRICKMASON Height - - Body Mass Index 30.47 06/15/2021 4:45 PM BRICKMASON documented in this encounter Progress Notes * [...] time, she also underwent right colectomy in [facility] [place] by Dr. Greyson Reeves. [...] pain. She was last examined by her PCP/DIGITAL RETOUCHER in December. She also has issues with [...] No rashes over exposed skin NEURO: A&Ox4, triple air valve tester grossly intact by conversation, moving all extremities [...] in the CABINET study, an [employer] sponsored [place] study randomizing patients to receive cabozantinib vs [...] with theCABINET study. We will have the LATEX FOAM WORKER consent her for the study. I have explained the randomized nature of the study and the voluntary participation. We will also consider SBRT to the vaginal lesion ifthis becomes symptomatic. We will Continue monthly Octreotide injection today, and hold off on xgeva She will call with any issues before next visit if needed. Eren Cr MD Medical Oncology [place] documented in this encounter Plan of Treatment [...] 021 documented in this encounter Care Teams Teller Coordinator Relationship Specialty Start Date End Date Julio César Briseno MD PCP - General 10/01/16 Eren Cr MD Referring Physician Medical Oncology 11/25/18 Yohana Bowen MD Radiation Oncologist Radiation Oncology 11/25/18 Sabrina Willard NP [address] [place] [id number] Nurse Practitioner Medical Oncology 08/17/20 11/26/21 documented as of this encounter
--- OUTSIDE RECORDS SUMMARY | 2024-06-26 02:10 | XMS_ITS | Encounter Summary ---
Author Organization [facility] Address [address] [place] [address] Phone Care Team Providers Care Toy Electric Train Repairer Name Role Phone Julio César Briseno MD Primary Care Provider [phone] Eren Cr MD Unavailable [phone] Yohana Bowen MD Unavailable Sabrina Willard NP Unavailable [phone] 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) Procedures [place] OCTREOTIDE INJECTION, DEPOT Octreotide 28 Day Cycles - Carcinoid Eren Cr MD [address] [facility] [address] [place] [address] Phone: tel: fax: [facility] [address] [address] Phone: tel: fax: Referral ID Status Reason Start Date Expiration Date V isits Requested Visits Authorized [id number] Authorized 11/28/2017 02/05/2025 1 150 Encounter Details Date Type Department Care Team (Late st Contact Info) Description 07/17/2021 1:30 PM SLIDE ATTENDANT Lab [facility] Oncology [address] [facility] 7th [place] [address] [place] [phone] Neuroendocrine carcinoma (CMS/HCC) (HCC); Malignant neoplasm metastatic [...] on file Legal Sex Female 2:41 PM SLIDE ATTENDANT Gender Identity Not on file Sexual Orientation Straight 02/19/2021 9: 29 AM CDT Occupation Industry Job Start Date Job End Date retired Not on file Not on file Not on file documented as of this encounter Plan of Treatment Not on file documented as of this encounter Procedures Procedure Name Priority Date/Time Associated Diagnosis Comments EGFR STAT 07/17/2021 1:58 PM SLIDE ATTENDANT Neuroendocrine carcinoma (CMS/HCC) (HCC) Malignant neoplasm metastatic to liver (CMS/HCC) (HCC) DIFFERENTIAL AUTO Routine 07/17/2021 1:5 8 PM SLIDE ATTENDANT Neuroendocrine carcinoma (CMS/HCC) (HCC) Malignant neoplasm metastatic to liver (CMS/HCC) (HCC) CHROMOGRANIN A Routine 07/17/2021 1:58 PM SLIDE ATTENDANT Neuroendocrine carcinoma (CMS/HCC) (HCC) Malignant neoplasm metastatic to liver (CMS/HCC) (HCC) CBC WITH AUTO DIFFERENTIAL Routine 07/17/2021 1:58 PM SLIDE ATTENDANT Neuroendocrine carcinoma (CMS/HCC) (HCC) Malignant neoplasm metastatic to liver (CMS/HCC) (HCC) VITAMIN D 25 HYDROXY Routine 07/17/2021 1:58 PM SLIDE ATTENDANT Neuroendocrine carcinoma (CMS/HCC) (HCC) Malignant neoplasm metastatic to liver (CMS/HCC) (HCC) TSH Routine 07/17/2021 1:58 PM SLIDE ATTENDANT Neuro-endocrine carcinoma (CMS/HCC) (HCC) PHOSPHORUS Routine 07/17/2021 1:58 PM SLIDE ATTENDANT Neuroendocrine carcinoma (CMS/HCC) (HCC) Malignant neoplasm metastatic to liver (CMS/HCC) (HCC) MAGNESIUM STAT 07/17/2021 1:58 PM SLIDE ATTENDANT Neuro-endocrine carcinoma (CMS/HCC) (HCC) LIPID PANEL Routine 07/17/2021 1:58 PM SLIDE ATTENDANT Neuroendocrine carcinoma (CMS/HCC) (HCC) Malignant neoplasm metastatic to liver (CMS/HCC) (HCC) COMPREHENSIVE METABOLIC PANEL STAT 07/17/2021 1:58 PM SLIDE ATTENDANT Neuroendocrine carcinoma (CMS/HCC) (HCC) Malignant neoplasm metastatic to liver (CMS/HCC) (HCC) PROTEIN / CREATININE RATIO, URINE, RANDOM STAT 07/17/2021 1:35 PM SLIDE ATTENDANT Neuro-endocrine carcinoma (CMS/HCC) (HCC) documented in this encounter Results * (ABNORMAL) eGFR (07/17/2021 1:58 PM SLIDE ATTENDANT) [facility] eGFR 57(L) 90 - 130 mL/min/1. [address] [facility] Comment: Interpretive Data Reference Interval [...] Testing performed by: [facility], [address] [place] [phone] Blood 07/17/2021 1:58 PM SLIDE ATTENDANT 07/17/2021 2:01 PM SLIDE ATTENDANT us Eren Cr MD LAB BLOOD ORDERABLES Final Re sult [facility] One [facility] Department [place] [address] * (ABNORMAL) Differential, auto (07/17/2021 1:58 PM SLIDE ATTENDANT) Neutrophil abs 4.1 1.8 - 6.6 K/cumm [facility] Comment:Testing performed by : [facility], [address] [place] [phone] Lymphocyte abs 0.5(L) 1.2 - 3.3 K/cumm [facility] Comment:Testing performed by : [facility], [address] [place] [phone] Monocyte abs 0.7 0.2 - 1.2 K/cumm J[facility] Comment:Testing performed by : [facility], [address] [place] [phone] Eosinophil abs 0.1 0.0 - 0.5 K/cumm [facility] Comment:Testing performed by : [facility], [address] [place] [phone] Basophil abs 0.0 0.0 - 0.2 K/cumm [facility] Comment:Testing performed by : [facility], [address] [place] [phone] Neutrophil pct 75.0 % [facility] Comment: Interpretive Data Percent cell count reference ranges are not reported, since discordance with absolute values may lead to misinterpretation of CBC data. Current Interpretive Data was last revised on 2017. Testing performed by: [facility], [address] [place] [phone] Lymphocyte pct 10.1 % [facility] Comment: Interpretive Data Percent cell count reference ranges are not reported, since discordance with absolute values may lead to misinterpretation of CBC data. Current Interpretive Data was last revised on 2017. Testing performed by: [facility], [address] [place] [phone] Monocyte pct 12.3 % [facility] Comment:Testing performed by : [facility], [address] [place] [phone] Eosinophil pct 2.0 % [facility] Comment:Testing performed by : [facility], [address] [place] [phone] Basophil pct 0.6 % [facility] Comment:Testing performed by : [facility], [address] [place] [phone] Blood 07/17/2021 1:58 PM SLIDE ATTENDANT 07/17/2021 2:01 PM SLIDE ATTENDANT Eren Cr MD LAB BLOOD ORDERABLES Final Re sult J[facility] One [facility] Department [place] [address] * Magnesium (07/17/2021 1:58 PM SLIDE ATTENDANT) Magnesium 1.9 1.4 - 2.5 mg/dL [facility] Comment:Testing performed by : [facility], [address] [place] [phone] Blood 07/17/2021 1:58 PM SLIDE ATTENDANT 07/17/2021 2:01 PM SLIDE ATTENDANT Eren Cr MD LAB BLOOD ORDERABLES Final Re sult Performing Organization Address [facility] Co de Phone Number [facility] One [facility] [place] [address] * TSH (07/17/2021 1:58 PM SLIDE ATTENDANT) Thyroid Stimulating Hormone 3.03 0.30 - 4.20 mcIUnit/mL [facility] Blood 07/17/2021 1:58 PM SLIDE ATTENDANT 07/17/2021 2:16 PM SLIDE ATTENDANT Eren Cr MD LAB BLOOD ORDERABLES Final Re sult Performing Organization Address [facility] de Phone Number [facility] One [facility] [place] [address] * (ABNORMAL) Lipid panel (07/17/2021 1:58 PM SLIDE ATTENDANT) Pathologist [facility] Cholesterol 184 30 - 199 mg/dL [facility] Comment: Interpretive Data Ages < [...] revised on 2018. Triglycerides 314(H) <=149 mg/dL [facility] Comment: Interpretive Data Ages < [...] revised on 2018. HDL 55 >=40 mg/dL [facility] Comment: Interpretive Data Ages < [...] 2018. LDL, calculated 66 <=129 mg/dL [facility] Comment: Interpretive Data Ages < [...] revised on 2018. Non-HDL Cholesterol 129 mg/dL [facility] Comment: Interpretive Data Ages < [...] Chol/HDL ratio 3 [facility] Blood 07/17/2021 1:58 PM SLIDE ATTENDANT 07/17/2021 2:16 PM SLIDE ATTENDANT Eren Cr MD LAB BLOOD ORDERABLES Final Re sult Performing Organization Address City/[facility]/ZIP Co de Phone Number [facility] Department of Laboratories [place] [id number] * Phosphorus (07/17/2021 1:58 PM SLIDE ATTENDANT) Phosphorus, pl 2.7 2.3 - 4.5 mg/dL [facility] Comment:Testing performed by : [facility], [address] [place] [phone] Blood 07/17/2021 1:58 PM SLIDE ATTENDANT 07/17/2021 2:01 PM SLIDE ATTENDANT Eren Cr MD LAB BLOOD ORDERABLES Final Re sult [facility] Department [place] [address] * (ABNORMAL) Vitamin D 25 hydroxy (07/17/2021 1:58 PM SLIDE ATTENDANT) [facility] Vitamin D 25-OH 26(L) 30 - 80 ng/mL [facility] Blood 07/17/2021 1:58 PM SLIDE ATTENDANT 07/17/2021 2:16 PM SLIDE ATTENDANT Eren Cr MD LAB BLOOD ORDERABLES Final Re sult [facility] [place] [address] * CBC with auto differential (07/17/2021 1:58 PM SLIDE ATTENDANT) [facility] WBC 5.4 3.8 - 9.8 K/cumm [facility] Comment:Testing performed by : [facility], [address] [place] [phone] Hgb 14.0 12.1 - 15.1 g/dL [facility] Comment:Testing performed by : [address] [address] Hct 41.1 36.1 - 44.3 % [facility] Comment:Testing performed by : [address] [address] Plt 149 140 - 440 K/cumm [facility] Comment:Testing performed by : [address] [address] MPV 7.8 6.8 - 10.[address]L [address] [facility] Comment:Testing performed by : [address] [address] RBC 4.56 3.90 - 5.00 M/cumm [facility] Comment:Testing performed by : [address] [address] MCV 90.2 80.0 - 97.[address]L [address] [facility] Comment:Testing performed by : [address] [address] MCH 30.8 26.7 - 33.[address] [facility] Comment:Testing performed by : [facility], [address] [place] [phone] MCHC 34.2 32.7 - 35.5 g/dL [facility] Comment:Testing performed by : [facility], [address] [place] [phone] RDW CV 13.5 11.8 - 14.6 % [facility] Comment:Testing performed by : [facility], [address] [place] [phone] NRBC abs 0.00 0.00 - 0.01 K/cumm [facility] Comment:Testing performed by : [facility], [address] [place] [phone] Blood 07/17/2021 1:5 8 PM SLIDE ATTENDANT 07/17/2021 2:01 PM SLIDE ATTENDANT Eren Cr MD LAB BLOOD ORDERABLES Final Re sult [facility] One [facility] Department [place] [address] * (ABNORMAL) Comprehensive metabolic panel (07/17/2021 1:58 PM SLIDE ATTENDANT) Sodium 141 135 - 145 mmol/L [facility] Comment:Testing performed by : [facility], [address] [place] [phone] Potassium, pl 4.7 3.3 - 4.9 mmol/L [facility] Comment:Testing performed by : [facility], [address] [place] [phone] Chloride 107 97 - 110 mmol/L [facility] Comment:Testing performed by : [facility], [address] [place] [phone] CO2 26 22 - 32 mmol/L [facility] Comment:Testing performed by : [facility], [address] [place] [phone] Anion gap 8 2 - 15 mmol/L [facility] Comment:Testing performed by : [facility], [address] [place] [address] BUN 14 8 - 25 mg/dL [facility] Comment:Testing performed by : [facility], [address] [place] [phone] Creatinine 1.04 0.60 - 1.10 mg/dL [facility] Comment:Testing performed by : [address] [phone] Glucose 111 70 - 199 mg/dL CERNER [...] revised 2017. Testing performed by: [facility], [address] [place], [place] [phone] Calcium 10.4(H) 8.5 - 10.3 mg/dL [facility] Comment:Testing performed by : [address] [address] Bilirubin, total 0.5 0.1 - 1.2 mg/dL [facility] Comment:Testing performed by : [address] [address] Protein, pl 7.2 6.5 - 8.5 g/dL [facility] Comment:Testing performed by : [address] [address] Albumin 4.4 3.5 - 5.0 g/dL [facility] Comment:Testing performed by : [address] [address] Alk phos 93 40 - 130 Units/L [facility] Comment:Testing performed by : [address] [address] ALT 12 7 - 45 Units/L [facility] Comment:Testing performed by : [facility], [address] [facility] [address] AST 19 10 - 45 Units/L [facility] Comment:Testing performed by : [facility], [address] [facility] [address] Blood 07/17/2021 1:58 PM SLIDE ATTENDANT 07/17/2021 2:01 PM SLIDE ATTENDANT Eren Cr MD LAB BLOOD ORDERABLES Final Re sult JASON [facility] One [facility] Department [place] [address] * (ABNORMAL) Chromogranin A (07/17/2021 1:58 PM SLIDE ATTENDANT) Chromogranin A 1727(H) <93 ng/mL J[facility]ON [facility] Comment: Impaired renal or hepatic function or treatment with proton pump inhibitors may result in artifactual elevations of Chromogranin A. ADDITIONAL INFORMATION This test was developed and its performance characteristics determined by [facility] in a manner consistent with CLIA requirements. This test has not been cleared or approved by the U.S. Food and Drug Administration. The testing method is a homogeneous time-resolved immunofluorescent assay manufactured by [employer] and performed on the [employer] Kryptor Compact Plus. ? Values obtained with different assay methods or kits may be different and cannot be used interchangeably. ? Test results cannot be interpreted as absolute evidence for the presence or absence of malignant disease. Test Performed by: [facility] [place] [address] Cabin Agent: Immanuel Novak M.D. Ph.D.; CLIA# [id number] Blood 07/17/2021 1:58 PM SLIDE ATTENDANT 07/17/2021 3:22 PM SLIDE ATTENDANT Eren Cr MD LAB BLOOD ORDERABLES Final Re sult Performing Organization Address [facility] de Phone Number [facility] [place] [address] * Protein / creatinine ratio, urine, random (07/17/2021 1:35 PM SLIDE ATTENDANT) Protein, ur, quant 35.0 mg/dL [facility] Comment: Interpretive Data No reference range established. Current interpretive data was last revised 2018. Creatinine Ur 359.8 mg/dL [facility] Comment: Interpretive Data No reference range established. Current interpretive data was last revised 2018. Protein/creatinin e ratio 97.3 0.0 - 180.0 mg/g CR [facility] Urine 07/17/2021 1:35 PM SLIDE ATTENDANT 07/17/2021 2:32 PM SLIDE ATTENDANT Eren Cr MD LAB URINE ORDERABLES Final [facility] Performing Organization Address [facility] de Phone Number [facility] Department [place] [address] documented in this encounter Visit Diagnoses Diagnosis [...] 07/17/2021 documented in this encounter Care Teams Toy Electric Train Repairer Relationship Specialty Start Date End Date Julio César Briseno MD PCP - General 10/01/16 Eren Cr MD Referring Physician Medical Oncology 11/25/18 Yohana Bowen MD Radiation Oncologist Radiation Oncology 11/25/18 Sabrina Willard NP [address] [place] [address] Nurse Practitioner Medical Oncology 08/17/20 11/26/21 documented as of this encounter
--- OUTSIDE RECORDS SUMMARY | 2024-06-26 02:10 | XMS_ITS | Encounter Summary ---
Author Organization [facility] Address [address] [place] [address] Phone Care Team Providers Care Ordnance Corps Officer Name Role Phone Julio César Briseno MD Primary Care Provider Eren Cr MD Unavailable [phone] Yohana Bowen MD Unavailable Sabrina Willard NP Unavailable Encounter Details Date Type Department Care Team (Late st Contact Info) Description 06/19/2021 Orders Only [facility] Oncology [address] [facility] Advanced Medicine 7th [place] [address] [place] [phone] Eren Cr MD [address] [facility] [address] [place] [address] Social History Tobacco Use Types Packs/Day Years [...] on file Legal Sex Female 2:41 PM WEB SERVICES MANAGER Gender Identity Not on file Sexual Orientation Straight 02/19/2021 9: 29 AM CDT Occupation Industry Job Start Date Job End Date retired Not on file Not on file Not on file documented as of this encounter Plan of Treatment Not on file documented as of this encounter Visit Diagnoses Not on filedocumented in this encounter Care Teams Ordnance Corps Officer Relationship Specialty Start Date End Date Julio César Briseno MD PCP - General 10/01/16 Eren Cr MD Referring Physician Medical Oncology 11/25/18 Yohana Bowen MD Radiation Oncologist Radiation Oncology 11/25/18 Sabrina Willard NP [address] [place] [address] Nurse Practitioner Medical Oncology 08/17/20 11/26/21 documented as of this encounter
--- OUTSIDE RECORDS SUMMARY | 2024-06-26 02:10 | XMS_ITS | Encounter Summary ---
Author Organization [facility] Address [address] [place] [address] Phone Care Team Providers Care Rock Breaker Name Role Phone Julio César Briseno MD Primary Care Provider [phone] Eren Cr MD Unavailable [phone] Yohana Bowen MD Unavailable Sabrina Willard NP Unavailable Encounter Details Date Type Department Care Team (Late st Contact Info) Description 06/21/2021 Orders Only [facility] Oncology [address] [facility] Advanced Medicine 7th [place] [address] [place] [phone] Eren Cr MD [address] [facility] [address] [place] [address] Social History Tobacco Use Types Packs/Day Years [...] Legal Sex Female 2:41 PM WOOL HAT FLANGER Gender Identity Not on file Sexual Orientation Straight 02/19/2021 9: 29 AM CDT Occupation Industry Job Start Date Job End Date retired Not on file Not on file Not on file documented as of this encounter Plan of Treatment Not on file documented as of this encounter Visit Diagnoses Not on filedocumented in this encounter Care Teams Rock Breaker Relationship Specialty Start Date End Date Julio César Briseno MD PCP - General 10/01/16 Eren Cr MD Referring Physician Medical Oncology 11/25/18 Yohana Bowen MD Radiation Oncologist Radiation Oncology 11/25/18 Sabrina Willard NP [address] [place] [address] Nurse Practitioner Medical Oncology 08/17/20 11/26/21 documented as of this encounter
--- OUTSIDE RECORDS SUMMARY | 2024-06-26 02:10 | XMS_ITS | Encounter Summary ---
Author Organization [facility] Address [address] [place] [address] Phone Care Team Providers Care Public Relations Officer Name Role Phone Julio César Briseno MD Primary Care Provider [phone] Eren Cr MD Unavailable [phone] Yohana Bowen MD Unavailable Sabrina Willard NP Unavailable [phone] Encounter Details Date Type Department Care Team (Late st Contact Info) Description 06/28/2021 Orders Only [facility] Oncology [address] [facility] Advanced Medicine 7th [place] [address] [place] [id number] Elaine Coy Neuroendocrine carcinoma (CMS/HCC) (HCC) (Primary [...] file Legal Sex Female 2:41 PM INSURANCE CLAIM REPRESENTATIVE Gender Identity Not on file Sexual [...] site documented in this encounter Care Teams Public Relations Officer Relationship Specialty Start Date End Date Julio César Briseno MD PCP - General 10/01/16 Eren Cr MD Referring Physician Medical Oncology 11/25/18 Yohana Bowen MD Radiation Oncologist Radiation Oncology 11/25/18 Sabrina Willard NP [address] [place] [address] Nurse Practitioner Medical Oncology 08/17/20 11/26/21 documented as of this encounter
--- OUTSIDE RECORDS SUMMARY | 2024-06-26 02:10 | XMS_ITS | Encounter Summary ---
Author Organization [facility] Address [address] [place] [address] Phone Care Team Providers Care Armature Winder Repairer Name Role Phone Julio César Briseno MD Primary Care Provider Eren Cr MD Unavailable [phone] Yohana Bowen MD Unavailable Sabrina Willard NP Unavailable Encounter Details Date Type Department Care Team (Late st Contact Info) Description 06/22/2021 Orders Only [facility] Oncology [address] [facility] Advanced Medicine 7th [place] [address] [place] [address] Eren Cr MD [address] [facility] [address] [place] [address] Neuroendocrine carcinoma (CMS/HCC) (HCC) (Primary Dx) Social [...] file Legal Sex Female 2:41 PM SHAREPOINT WEB DEVELOPER Gender Identity Not on file Sexual [...] site documented in this encounter Care Teams Armature Winder Repairer Relationship Specialty Start Date End Date Julio César Briseno MD PCP - General 10/01/16 Eren Cr MD Referring Physician Medical Oncology 11/25/18 Yohana Bowen MD Radiation Oncologist Radiation Oncology 11/25/18 Sabrina Willard NP [address] [place] [address] Nurse Practitioner Medical Oncology 08/17/20 11/26/21 documented as of this encounter
--- OUTSIDE RECORDS SUMMARY | 2024-06-26 02:10 | XMS_ITS | Encounter Summary ---
Author Organization [facility] Address [address] [place] [address] Phone Care Team Providers Care Applications Trainer Name Role Phone Julio César Briseno MD Primary Care Provider [phone] Eren Cr MD Unavailable [phone] Yohana Bowen MD Unavailable Sabrina Willard NP Unavailable [phone] Reason for Referral * MRI/CAT/PET Scan (Routine) - Closed Specialty Diagnoses / Procedures Referred By Contac t Referred To Contact Radiology Diagnoses Neuroendocrine carcinoma (HCC) Procedures CT chest abdomen pelvis with contrast Eren Cr MD [address] [place] [address] Phone: tel: fax: [address] [address] Referral ID Status Reason Start Date Expiration Date Visits Re quested Visits Authorized [id number] Closed 06/19/2021 07/19/2022 1 1 ACE ROOM SUPERVISOR Encounter Details Date Type Department Care Team (Late st Contact Info) Description 06/19/2021 Orders Only [facility] Oncology [facility] [facility] 7th [place] [address] [place] [address] Eren Cr MD [address] [facility] [address] [place] [address] Neuroendocrine carcinoma (CMS/HCC) (HCC) (Primary Dx); Malignant [...] on file Legal Sex Female 2:41 PM FURNACE ROOM SUPERVISOR Gender Identity Not on file Sexual Orientation Straight 02/19/2021 9: 29 AM CDT Occupation Industry Job Start Date Job End Date retired Not on file Not on file Not on file documented as of this encounter Plan of Treatment Not on file documented as of this encounter Results * (ABNORMAL) Chromogranin A (07/17/2021 1:58 PM FURNACE ROOM SUPERVISOR) Chromogranin A 1727(H) <93 ng/mL [facility] Comment: Impaired renal or hepatic function or treatment with proton pump inhibitors may result in artifactual elevations of Chromogranin A. ADDITIONAL INFORMATION This test was developed and its performance characteristics determined by [facility] in a manner consistent with CLIA requirements. This test has not been cleared or approved by the U.S. Food and Drug Administration. The testing method is a homogeneous time-resolved immunofluorescent assay manufactured by [employer] and performed on the [employer] Collaboration Networkor Compact Plus. ? Values obtained with different assay methods or kits may be different and cannot be used interchangeably. ? Test results cannot be interpreted as absolute evidence for the presence or absence of malignant disease. Test Performed by: [facility] [address] [facility], [place] [address] Pricing Director: Immanuel Novak M.D. Ph.D.; CLIA# [id number] Blood 07/17/2021 1:58 PM FURNACE ROOM SUPERVISOR 07/17/2021 3:22 PM FURNACE ROOM SUPERVISOR Eren Cr MD LAB BLOOD ORDERABLES Final Re sult [facility] One [facility] [place] [address] * (ABNORMAL) Comprehensive metabolic panel (07/17/2021 1:58 PM FURNACE ROOM SUPERVISOR) Sodium 141 135 - 145 mmol/L [facility] Comment:Testing performed by : [facility], [address] [place] [phone] Potassium, pl 4.7 3.3 - 4.9 mmol/L [facility] Comment:Testing performed by : [facility], [address] [place] [address] Chloride 107 97 - 110 mmol/L [facility] Comment:Testing performed by : [facility], [address] [place] [phone] CO2 26 22 - 32 mmol/L [facility] Comment:Testing performed by : [address] [address] Anion gap 8 2 - 15 mmol/L [facility] Comment:Testing performed by : [facility], [address] [place] [phone] BUN 14 8 - 25 mg/dL [facility] Comment:Testing performed by : [facility], [address] [place] [phone] Creatinine 1.04 0.60 - 1.10 mg/dL [facility] Comment:Testing performed by : [facility], [address] [place] [address] Glucose 111 70 - 199 mg/dL [facility] Comment: Interpretive Data Fasting glucose >/= [...] was last revised 2017. Testing performed by: [facility], [address] [place] [address] Calcium 10.4(H) 8.5 - 10.3 mg/dL [facility] Comment:Testing performed by : [address] [phone] Bilirubin, total 0.5 0.1 - 1.2 mg/dL [facility] Comment:Testing performed by : [address] [address] Protein, pl 7.2 6.5 - 8.5 g/dL [facility] Comment:Testing performed by : [address] [address] Albumin 4.4 3.5 - 5.0 g/dL [facility] Comment:Testing performed by : [address] [address] Alk phos 93 40 - 130 Units/L [facility] Comment:Testing performed by : [address] [address] ALT 12 7 - 45 Units/L [facility] Comment:Testing performed by : [address] [address] AST 19 10 - 45 Units/L [facility] Comment:Testing performed by : [address] [address] Blood 07/17/2021 1:58 PM FURNACE ROOM SUPERVISOR 07/17/2021 2:01 PM FURNACE ROOM SUPERVISOR us Eren Cr MD LAB BLOOD ORDERABLES Final Re sult [facility] One [facility] [place] [address] * CBC with auto differential (07/17/2021 1:58 PM FURNACE ROOM SUPERVISOR) WBC 5.4 3.8 - 9.8 K/cumm [facility] Comment:Testing performed by : [facility], [address] [place] [address] Hgb 14.0 12.1 - 15.1 g/dL [facility] Comment:Testing performed by : [facility], [address] [place] [address] Hct 41.1 36.1 - 44.3 % [facility] Comment:Testing performed by : [facility], [address] [place] [address] Plt 149 140 - 440 K/cumm [facility] Comment:Testing performed by : [facility], [address] [place] [address] MPV 7.8 6.8 - 10.4 fL [facility] Comment:Testing performed by : [address] [address] RBC 4.56 3.90 - 5.00 M/cumm [facility] Comment:Testing performed by : [address] [address] MCV 90.2 80.0 - 97.6 fL [facility] Comment:Testing performed by : [facility], [address] [place] [address] MCH 30.8 26.7 - 33.7 pg [facility] Comment:Testing performed by : [address] [address] MCHC 34.2 32.7 - 35.5 g/dL [facility] Comment:Testing performed by : [facility], [address] [place] [address] RDW CV 13.5 11.8 - 14.6 % [facility] Comment:Testing performed by : [address] [address] NRBC abs 0.00 0.00 - 0.01 K/cumm [facility] Comment:Testing performed by : [facility], [address] [place] [address] Blood 07/17/2021 1:58 PM FURNACE ROOM SUPERVISOR 07/17/2021 2:01 PM FURNACE ROOM SUPERVISOR Eren Cr MD LAB BLOOD ORDERABLES Final Re sult Performing Organization Address City/[facility]/ZIP Co de Phone Number [facility] of Laboratories [place], [place] [id number] * (ABNORMAL) Vitamin D 25 hydroxy (07/17/2021 1:58 PM FURNACE ROOM SUPERVISOR) [facility] Vitamin D 25-OH 26(L) 30 - 80 ng/mL [facility] Blood 07/17/2021 1:58 PM FURNACE ROOM SUPERVISOR 07/17/2021 2:16 PM FURNACE ROOM SUPERVISOR Eren Cr MD LAB BLOOD ORDERABLES Final Re sult Performing Organization Address [facility] Co de Phone Number [place], [place] [phone] * Phosphorus (07/17/2021 1:58 PM FURNACE ROOM SUPERVISOR) [facility] Phosphorus, pl 2.7 2.3 - 4.5 mg/dL [facility] Comment:Testing performed by : [facility], [address] [place] [phone] Blood 07/17/2021 1:58 PM FURNACE ROOM SUPERVISOR 07/17/2021 2:01 PM FURNACE ROOM SUPERVISOR Eren Cr MD LAB BLOOD ORDERABLES Final Re sult Performing Organization Address [facility] Co de Phone Number [facility] [place], [place] [phone] * (ABNORMAL) Lipid panel (07/17/2021 1:58 PM FURNACE ROOM SUPERVISOR) [facility] Cholesterol 184 30 - 199 mg/dL [facility] Comment: Interpretive Data Ages < or [...] revised on 2018. Triglycerides 314(H) <=149 mg/dL [facility] Comment: Interpretive Data Ages < or [...] revised on 2018. HDL 55 >=40 mg/dL [facility] Comment: Interpretive Data Ages < or [...] 2018. LDL, calculated 66 <=129 mg/dL [facility] Comment: Interpretive Data Ages < or [...] revised on 2018. Non-HDL Cholesterol 129 mg/dL [facility] Comment: Interpretive Data Ages < or [...] revised on 2018. Chol/HDL ratio 3 [facility] Blood 07/17/2021 1:58 PM FURNACE ROOM SUPERVISOR 07/17/2021 2:16 PM FURNACE ROOM SUPERVISOR us Eren Cr MD LAB BLOOD ORDERABLES Final Re sult [facility] One [facility] [place] [address] * CT chest abdomen pelvis with contrast (06/22/2021 8:21 AM FURNACE ROOM SUPERVISOR) Anatomical Region Laterality Modality Body N/A Computed Tomogra phy 06/22/2021 9:47 AM FURNACE ROOM SUPERVISOR Impressions 06/22/2021 10:56 AM FURNACE ROOM SUPERVISOR 1. Stable hepatic, peritoneal/mesenteric, retroperitoneal and vaginal [...] Sergio Flores M.D. Narrative 06/22/2021 10:56 AM FURNACE ROOM SUPERVISOR EXAMINATION: ??Computed tomography of the chest, abdomen [...] 07/17/2021 documented in this encounter Care Teams Applications Trainer Relationship Specialty Start Date End Date Julio César Briseno MD PCP - General 10/01/16 Eren Cr MD Referring Physician Medical Oncology 11/25/18 Yohana Bowen MD Radiation Oncologist Radiation Oncology 11/25/18 Sabrina Willard NP [address] [place] [address] Nurse Practitioner Medical Oncology 08/17/20 11/26/21 documented as of this encounter
--- OUTSIDE RECORDS SUMMARY | 2024-06-26 02:10 | XMS_ITS | Encounter Summary ---
Author Organization [facility] Healthcare Address [address] [place] [address] Care Team Providers Care Gun Welder Name Role Phone Julio César Briseno MD Primary Care Provider [phone] Eren Cr MD Unavailable [phone] Yohana Bowen MD Unavailable Sabrina Willard NP Unavailable [phone] Reason for Referral * MRI/CAT/PET Scan (Routine) - Closed Specialty Diagnoses / Procedures Referred By Evelyne bowman Referred To Contact Radiology Diagnoses Neuroendocrine carcinoma (HCC) Procedures CT chest abdomen pelvis with contrast Eren Cr MD [address] [address] [place] [address] Phone: tel: fax: [address] [address] Referral ID Status Reason Start Date Expiration Date Visits Re quested Visits Authorized [id number] Closed 06/19/2021 07/19/2022 1 1 SERVICE FLOORPERSON Reason for Visit * MRI/CAT/PET Scan (Routine) - Closed Specialty Diagnoses / Procedures [facility] Referred To Contact Radiology Diagnoses Neuroendocrine carcinoma (HCC) Procedures CT chest abdomen pelvis with contrast Eren Cr MD [address] [facility] [address] [place] [address] Phone: tel: fax: [address] [address] Referral ID Status Reason Start Date Expiration Date Visits Re quested Visits Authorized [id number] Closed 06/19/2021 07/19/2022 1 1 Encounter Details Date Type Department Care Team (Latest Contact Info) Description 06/22/2021 7:45 AM WELL SERVICE FLOORPERSON - 06/22/2021 11:59 PM WELL SERVICE FLOORPERSON Hospital Encounter [facility] Radiology [address] [place], [place] [phone] Eren Cr MD [address] [facility] [address] [place] [address] Neuroendocrine carcinoma (CMS/HCC) (HCC) Discharge Disposition: Discharge [...] on file Legal Sex Female 2:41 PM WELL SERVICE FLOORPERSON Gender Identity Not on file Sexual Orientation [...] capsuleIndications :supplement Take 1 tablet by mouth oral and maxillofacial surgery before breakfast 07/04/2016 4 cholecalciferol (VITAMIN D-3) 2,000 unit capsule Take 1 capsule (2,000 Units total) by mouth daily 30 capsule 2 04/25/2019 3 cholestyramine (QUESTRAN) 4 gram packet Take 1 packet by mouth 3 (three) times a day with meals 270 packet 3 09/04/2019 2 clotrimazole-betam ethasone (LOTRISONE) cream Apply 1 Application topically daily as needed (rash) 4 coenzyme [id number] E 100-5 mg-unit capsuleIndications :supplement Take 1 tablet by mouth oral and maxillofacial surgery before breakfast 4 denosumab (XGEVA) 120 mg/1.7 [...] Read Routine (OP Routine) 06/22/2021 8:21 AM WELL SERVICE FLOORPERSON Neuroendocrine carcinoma (CMS/HCC) (HCC) documented in this encounter Results * CT chest abdomen pelvis with contrast (06/22/2021 8:21 AM WELL SERVICE FLOORPERSON) Anatomical Region Laterality Modality Body N/A Computed Tomogra phy 06/22/2021 9:47 AM WELL SERVICE FLOORPERSON Impressions 06/22/2021 10:56 AM WELL SERVICE FLOORPERSON 1. Stable hepatic, peritoneal/mesenteric, retroperitoneal and vaginal [...] Sergio Flores M.D. Narrative 06/22/2021 10:56 AM WELL SERVICE FLOORPERSON EXAMINATION: ??Computed tomography of the chest, abdomen [...] 1 dose Contrast Given 06/22/2021 8:22 AM WELL SERVICE FLOORPERSON 95 mL documented in this encounter Orders Medications Ordered That Brett ht Not Have Been Administered Count Last Ordered Date First Ordered Date ioversoL (OPTIRAY 350) syrin ge syringe 100 mL 1 06/22/2021 documented in this encounter Care Teams Gun Welder Relationship Specialty Start Date End Date Julio César Briseno MD PCP - General 10/01/16 Eren Cr MD Referring Physician Medical Oncology 11/25/18 Yohana Bowen MD Radiation Oncologist Radiation Oncology 11/25/18 Sabrina Willard NP [address] [facility] [address] [place] [address] Nurse Practitioner Medical Oncology 08/17/20 11/26/21 documented as of this encounter
--- OUTSIDE RECORDS SUMMARY | 2024-06-26 02:10 | XMS_ITS | Encounter Summary ---
Author Organization [facility] Address [address] [place] [address] Phone Care Team Providers Care Television Program Director Name Role Phone Julio César Briseno MD Primary Care Provider [phone] Eren Cr MD Unavailable [phone] Yohana Bowen MD Unavailable Sabrina Willard NP Unavailable [phone] Reason for Visit * Episode Based Medications (Routine) - Closed Specialty Diagnoses / Procedures Referred By Contac t Referred To Contact Diagnoses Hypophosphatemia Procedures VA INJ MAGNESIUM SULFATE Eren Cr MD [address] [facility] [address] [place] [address] Phone: tel: fax: [facility] Oncology [address] [place] [address] [place] [address] Phone: tel: Referral ID Status Reason Start Date Expiration Date Visits Re quested Visits Authorized [id number] Closed 06/14/2021 07/14/2022 1 20 Encounter Details Date Type Department Care Team (Late st Contact Info) Description 06/19/2021 4:00 PM STEEL DETAILER Infusion [facility] Oncology [facility] [address] [place] [address] Neuroendocrine carcinoma (CMS/HCC) (HCC) (Primary Dx); Bone [...] file Legal Sex Female 2:41 PM STEEL DETAILER Gender Identity Not on file Sexual Orientation Straight 02/19/2021 9: 29 AM CDT Occupation Industry Job Start Date Job End Date retired Not on file Not on file Not on file documented as of this encounter Nursing Notes * Susana Begum - 06/19/2021 4:00 PM CST Please review charting in additional encounter for this date L DETAILER documented in this encounter Plan of Treatment [...] (HCC),Neuroendocrine carcinoma (HCC) Given 06/19/2021 7:07 PM STEEL DETAILER 30 mg Right Dorsogluteal/Bu ttock sodium chloride 0.9% bolus 500 mL 500 mL, intravenous, at 500 mL/hr, Administer over 1 Hours, Once, On 06/19/21 at 1815, For 1 doseIndications:Bone metastasis,Neuro-endocrin e carcinoma (HCC) New Bag 06/19/2021 5:25 PM STEEL DETAILER 500 mL 500 mL/hr documented in this encounter Orders Nursing Count Last Ordered Date First Orde red Date ONCBCN NURSING COMMUNICATION [id number] 2 06/19 Appointment Requests Count Last Ordered Date Fi rst Ordered Date ONCBCN INFUSION APPT REQUEST 1 06/19/2021 documented in this encounter Care Teams Television Program Director Relationship Specialty Start Date End Date Julio César Briseno MD PCP - General 10/01/16 Eren Cr MD Referring Physician Medical Oncology 11/25/18 Yohana Bowen MD Radiation Oncologist Radiation Oncology 11/25/18 Sabrina Willard NP [address] [place] [address] Nurse Practitioner Medical Oncology 08/17/20 11/26/21 documented as of this encounter
--- OUTSIDE RECORDS SUMMARY | 2024-06-26 02:10 | XMS_ITS | Encounter Summary ---
Author Organization [facility] Address [address] [place] [address] Phone Care Team Providers Care Accounting Assistant Name Role Phone Julio César Briseno MD Primary Care Provider [phone] Eren Cr MD Unavailable [phone] Yohana Bowen MD Unavailable Sabrina Willard NP Unavailable [phone] Reason for Visit * Reason Onset Date Comments request for IVF 07/13/2021 Encounter Details Date Type Department Care Team (Late st Contact Info) Description 07/13/2021 Telephone [facility] Oncology [address] [facility] Advanced Medicine 7th [place] [address] [place] [address] Eren Cr MD [facility]ly [facility] [facility] [address] [place] [address] request for IVF Social History Tobacco Use [...] on file Legal Sex Female 2:41 PM RECREATION PROFESSOR Gender Identity Not on file Sexual [...] Appointment time and location sent to patient/daughter. EATION PROFESSOR documented in this encounter Plan of Treatment Not on file documented as of this encounter Visit Diagnoses Not on filedocumented in this encounter Care Teams Accounting Assistant Relationship Specialty Start Date End Date Julio César Briseno MD PCP - General 10/01/16 Eren Cr MD Referring Physician Medical Oncology 11/25/18 Yohana Bowen MD Radiation Oncologist Radiation Oncology 11/25/18 Sabrina Willard NP [address] [place] [address] Nurse Practitioner Medical Oncology 08/17/20 11/26/21 documented as of this encounter
--- OUTSIDE RECORDS SUMMARY | 2024-06-26 02:10 | XMS_ITS | Encounter Summary ---
Author Organization [facility] Address [address] [place] [address] Phone Care Team Providers Care Manager Mechanical Name Role Phone Julio César Briseno MD Primary Care Provider Eren Cr MD Unavailable [phone] Yohana Bowen MD Unavailable Sabrina Willard NP Unavailable [phone] Encounter Details Date Type Department Care Team (Late st Contact Info) Description 06/19/[address] [facility] Oncology [address] [facility] Advanced Medicine 7th [place] [address] [place] [address] Roshni Gutierrez CMA Neuro-endocrine carcinoma [...] on file Legal Sex Female 2:41 PM CABINETMAKER SUPERVISOR Gender Identity Not on file Sexual [...] creatinine ratio, urine, random (06/19/2021 7:00 PM CABINETMAKER SUPERVISOR) Protein, ur, quant 12.5 mg/dL [facility] Comment: Interpretive Data No reference range established. Current interpretive data was last revised 2018. Creatinine Ur 166.6 mg/dL [facility] Comment: Interpretive Data No reference range established. Current interpretive data was last revised 2018. Protein/creatinin e ratio 75.0 0.0 - 180.0 mg/g CR [facility] Urine 06/19/2021 7:00 PM CABINETMAKER SUPERVISOR 06/19/2021 7:22 PM CABINETMAKER SUPERVISOR Eren Cr MD LAB URINE ORDERABLES Final Re sult [facility] One [facility] Department [place] [address] documented in this encounter Visit Diagnoses Diagnosis Neuro-endocrine carcinoma (HCC)- Primary Other malignant neoplasm of unspecified site documented in this encounter Care Teams Manager Mechanical Relationship Specialty Start Date End Date Julio César Briseno MD PCP - General 10/01/16 Eren Cr MD Referring Physician Medical Oncology 11/25/18 Yohana Bowen MD Radiation Oncologist Radiation Oncology 11/25/18 Sabrina Willard, CECILIA [address] [place] [address] Nurse Practitioner Medical Oncology 08/17/20 11/26/21 documented as of this encounter
--- OUTSIDE RECORDS SUMMARY | 2024-06-26 02:10 | XMS_ITS | Encounter Summary ---
Author Organization [facility] Address [address] [place] [address] Phone Care Team Providers Care Fire Safety Manager Name Role Phone Julio César Briseno MD Primary Care Provider [phone] Eren Cr MD Unavailable Yohana Bowen MD Unavailable aSbrina Willard NP Unavailable Encounter Details Date Type Department Care Team (Late st Contact Info) Description 06/19/2021 Orders Only [facility] Oncology [address] [facility] Advanced Medicine 7th [place] [address] [place] [id number] Eren Cr MD [address] [facility] [address] [place] [address] Neuroendocrine carcinoma (CMS/HCC) (HCC) (Primary Dx) Social [...] file Legal Sex Female 2:41 PM CUSTOMER SERVICE OPERATOR Gender Identity Not on file Sexual Orientation Straight 02/19/2021 9: 29 AM CDT Occupation Industry Job Start Date Job End Date retired Not on file Not on file Not on file documented as of this encounter Plan of Treatment Not on file documented as of this encounter Results * Protime-INR (06/19/2021 6:45 PM CUSTOMER SERVICE OPERATOR) PT 10.7 9.5 - 13.6 sec [facility] INR 1.0 0.9 - 1.2 [facility] Comment: Interpretive data Oral anticoagulant therapeutic ranges: Venous thromboembolism prophylaxis or treatment: 2.0-3.0 CARDIOLOGY Standard range: 2.0-3.0 High-intensity range: 2.5-3.5 Refer to indication-specific guidelines for appropriate target ranges for prosthetic heart valve replacement. Current interpretive data was last revised on 2019. Blood 06/19/2021 6:45 PM CUSTOMER SERVICE OPERATOR 06/19/2021 7:09 PM CUSTOMER SERVICE OPERATOR Eren Cr MD LAB BLOOD ORDERABLES Final Re sult Performing Organization Address City/[facility] de Phone Number [facility] One [facility] [place] [address] * (ABNORMAL) aPTT (06/19/2021 6:45 PM CUSTOMER SERVICE OPERATOR) aPTT 24(L) 27 - 37 sec [facility] Comment: Interpretive Data Therapeutic heparin range: 60.0 - 94.0 seconds. Based on correlation with therapeutic heparin activity range of 0.3-0.7 Units/mL. Current interpretive data was last revised on 2020. Blood 06/19/2021 6:45 PM CUSTOMER SERVICE OPERATOR 06/19/2021 7:09 PM CUSTOMER SERVICE OPERATOR Eren Cr MD LAB BLOOD ORDERABLES Final Re sult Performing Organization Address City/State/[facility] [place] [address] * Creatinine (06/19/2021 6:45 PM CUSTOMER SERVICE OPERATOR) Creatinine 0.98 0.60 - 1.10 mg/dL [facility] Blood 06/19/2021 6:45 PM CUSTOMER SERVICE OPERATOR 06/19/2021 7:10 PM CUSTOMER SERVICE OPERATOR Eren Cr MD LAB BLOOD ORDERABLES Final Re sult Performing Organization Address [facility] [place] [address] * Magnesium (06/19/2021 6:45 PM CUSTOMER SERVICE OPERATOR) Pathologist [facility] Magnesium 1.9 1.4 - 2.5 mg/dL [facility] Blood 06/19/2021 6:45 PM CUSTOMER SERVICE OPERATOR 06/19/2021 7:10 PM CUSTOMER SERVICE OPERATOR Eren Cr MD LAB BLOOD ORDERABLES Final Re sult Performing Organization Address [facility]/ZIP Co de Phone Number [facility] [place] [place] [address] * TSH reflex to free T4 (06/19/2021 6:45 PM CUSTOMER SERVICE OPERATOR) Pathologist [facility] TSH 2.13 0.30 - 4.20 mcIUnit/mL [facility] Blood 06/19/2021 6:45 PM CUSTOMER SERVICE OPERATOR 06/19/2021 7:10 PM CUSTOMER SERVICE OPERATOR Eren Cr MD LAB BLOOD ORDERABLES Final Re sult Performing Organization Address City/[facility]/ZIP Co de Phone Number [facility] [place] [employer] [place] [address] documented in this encounter Visit Diagnoses Diagnosis Neuroendocrine carcinoma (HCC)- Primary Other malignant neoplasm of unspecified site documented in this encounter Care Teams Fire Safety Manager Relationship Specialty Start Date End Date Julio César Briseno MD PCP - General 10/01/16 Eren Cr MD Referring Physician Medical Oncology 11/25/18 Yohana Bowen MD Radiation Oncologist Radiation Oncology 11/25/18 Sabrina Willard NP [address] [place] [address] Nurse Practitioner Medical Oncology 08/17/20 11/26/21 documented as of this encounter
--- OUTSIDE RECORDS SUMMARY | 2024-06-26 02:10 | XMS_ITS | Encounter Summary ---
Author Organization [facility] Address [address] [place] [address] Care Team Providers Care Field Training Manager Name Role Phone Julio César Briseno MD Primary Care Provider [phone] Eren Cr MD Unavailable [phone] Yohana Bowen MD Unavailable Sabrina Willard NP Unavailable [phone] Encounter Details Date Type Department Care Team (Latest Contact Info) Description 07/14/2021 Orders Only Oncology Eren Cr MD [address] [facility] [address] [place], [place] [id number] Social History Tobacco Use Types Packs/Day Years [...] file Legal Sex Female 2:41 PM PACKING AND WRAPPING SUPERVISOR Gender Identity Not on file Sexual Orientation Straight 02/19/2021 9: 29 AM CDT Occupation Industry Job Start Date Job End Date retired Not on file Not on file Not on file documented as of this encounter Plan of Treatment Not on file documented as of this encounter Visit Diagnoses Not on filedocumented in this encounter Care Teams Field Training Manager Relationship Specialty Start Date End Date Julio César Briseno MD PCP - General 10/01/16 Eren Cr MD Referring Physician Medical Oncology 11/25/18 Yohana Bowen MD Radiation Oncologist Radiation Oncology 11/25/18 Sabrina Willard NP [address] [place] [address] Nurse Practitioner Medical Oncology 08/17/20 11/26/21 documented as of this encounter
--- OUTSIDE RECORDS SUMMARY | 2024-06-26 02:10 | XMS_ITS | Encounter Summary ---
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) Procedures [place] OCTREOTIDE INJECTION, DEPOT Octreotide 28 Day Cycles - Carcinoid Eren Cr MD [address] [facility] [address] [place] [address] Phone: tel: fax: [facility] [address] [address] Phone: tel: fax: Referral ID Status Reason Start Date Expiration Date V isits Requested Visits Authorized [id number] Authorized 11/28/2017 02/05/2025 1 150 Encounter Details Date Type Department Care Team (Late st Contact Info) Description 07/17/2021 2:00 PM MONITOR CAR OPERATOR Office Visit [facility] Oncology [address] [facility] 7th [place] [address] [place] [address] Joelle Eugene NP [address] [place] [address] Neuroendocrine carcinoma (CMS/HCC) (HCC) (Primary Dx); Bone [...] on file Legal Sex Female 2:41 PM MONITOR CAR OPERATOR Gender Identity Not on file Sexual Orientation Straight 02/19/2021 9: 29 AM CDT Occupation Industry Job Start Date Job End Date retired Not on file Not on file Not on file documented as of this encounter Last Filed Vital Signs Vital Sign Reading Time Taken Comments Blood Pressure 136/76 07/17/2021 2:17 PM MONITOR CAR OPERATOR Pulse 76 07/17/2021 2:17 PM MONITOR CAR OPERATOR Temperature 36.3 ??C (97.3 ??F) 07/17/2021 2:15 PM CS T Respiratory Rate 20 07/17/2021 2:15 PM MONITOR CAR OPERATOR Oxygen Saturation 97% 07/17/2021 2:17 PM MONITOR CAR OPERATOR Inhaled Oxygen Concentration - - Weight 79.6 kg (175 lb 6.4 oz) 07/17/2021 2:15 P M MONITOR CAR OPERATOR Height 157.7 cm (5' 2.09 ) 07/17/2021 2:15 PM CS T Body Mass Index 31.99 07/17/2021 2:15 PM MONITOR CAR OPERATOR documented in this encounter Progress Notes [...] also underwent right colectomy in [facility] [place] by Dr. Greyson Reeves. Biopsy [...] No rashes over exposed skin NEURO: A&Ox4, retail center receptionist grossly intact by conversation, moving all extremities [...] Addendum: Study drug will be available for picket labor union Saturday07/19/21. Cosigned by Eren Cr Jr., MD at 07/18/2021 3:02 PM MONITOR CAR OPERATOR TOR CAR OPERATOR TOR CAR OPERATOR documented in this encounter Plan of [...] documented in this encounter Care Teams Water Truck Driver Relationship Specialty Start Date End Date Julio César Briseno MD PCP - General 10/01/16 Eren Cr MD Referring Physician Medical Oncology 11/25/18 Yohana Bowen MD Radiation Oncologist Radiation Oncology 11/25/18 Sabrina Willard NP [address] [place] [address] Nurse Practitioner Medical Oncology 08/17/20 11/26/21 documented as of this encounter
--- OUTSIDE RECORDS SUMMARY | 2024-06-26 02:10 | XMS_ITS | Encounter Summary ---
Author Organization [facility] Address [address] [place] [address] Phone Care Team Providers Care Pulmonary Function Technician Name Role Phone Julio César Briseno MD Primary Care Provider [phone] Eren Cr MD Unavailable [phone] Yohana Bowen MD Unavailable Sabrina Willard NP Unavailable Encounter Details Date Type Department Care Team (Late st Contact Info) Description 07/13/2021 Orders Only [facility] Oncology [address] [facility] Advanced Medicine 7th [place] [address] [place] [phone] Eren Cr MD [address] [facility] [address] [place] [address] Social History Tobacco Use Types Packs/Day Years [...] file Legal Sex Female 2:41 PM 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 PLANNER Gender Identity Not on file Sexual Orientation Straight 02/19/2021 9: 29 AM CDT Occupation Industry Job Start Date Job End Date retired Not on file Not on file Not on file documented as of this encounter Plan of Treatment Not on file documented as of this encounter Visit Diagnoses Not on filedocumented in this encounter Care Teams Pulmonary Function Technician Relationship Specialty Start Date End Date Julio César Briseno MD PCP - General 10/01/16 Eren Cr MD Referring Physician Medical Oncology 11/25/18 Yohana Bowen MD Radiation Oncologist Radiation Oncology 11/25/18 Sabrina Willard NP [address] [place] [address] Nurse Practitioner Medical Oncology 08/17/20 11/26/21 documented as of this encounter
--- OUTSIDE RECORDS SUMMARY | 2024-06-26 02:10 | XMS_ITS | Encounter Summary ---
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) Procedures [place] OCTREOTIDE INJECTION, DEPOT Octreotide 28 Day Cycles - Carcinoid Eren Cr MD [address] [facility] [address] [place] [address] Phone: tel: fax: [facility] [address] [address] Phone: tel: fax: Referral ID Status Reason Start Date Expiration Date V isits Requested Visits Authorized [id number] Authorized 11/28/2017 02/05/2025 1 150 Encounter Details Date Type Department Care Team (Late st Contact Info) Description 06/19/2021 4:15 PM PROFILE SAW SETUP OPERATOR Infusion [facility] Oncology [address] [facility] Advanced Medicine 7th [place] [address] Neuroendocrine carcinoma (CMS/HCC) (HCC); Malignant neoplasm metastatic [...] on file Legal Sex Female 2:41 PM PROFILE SAW SETUP OPERATOR Gender Identity Not on file Sexual Orientation Straight 02/19/2021 9: 29 AM CDT Occupation Industry Job Start Date Job End Date retired Not on file Not on file Not on file documented as of this encounter Nursing Notes * Susana Begum - 06/19/2021 4:15 PM CST Oncology Nursing Note [facility] Lashirley Chung is a 70 y.o. 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
--- OUTSIDE RECORDS SUMMARY | 2024-06-26 02:10 | XMS_ITS | Encounter Summary ---
Author Organization [facility] Address [address] [place] [address] Phone Care Team Providers Care Transit Mix Operator Name Role Phone Julio César Briseno MD Primary Care Provider Eren Cr MD Unavailable [phone] Yohana Bowen MD Unavailable Sabrina Willard NP Unavailable [phone] Encounter Details Date Type Department Care Team (Latest Contact Info) Description 07/13/2021 2:30 PM GRADE RECORDER Clinical Support [facility] Oncology [facility] Advanced Medicine 7th [place] [address] Neuroendocrine carcinoma (CMS/HCC) (HCC) Social [...] on file Legal Sex Female 2:41 PM GRADE RECORDER Gender Identity Not on file Sexual Orientation [...] URINE, 24 HOUR Routine 07/13/2021 8:00 AM GRADE RECORDER Neuroendocrine carcinoma (CMS/HCC) (HCC) 5 HIAA, URINE, 24 HOUR RESULT Routine 07/13/2021 8:00 AM GRADE RECORDER Neuroendocrine carcinoma (CMS/HCC) (HCC) 5 HIAA, URINE, QUANTITATIVE, 24 HOUR Routine 07/13/2021 8:00 AM GRADE RECORDER Neuroendocrine carcinoma (CMS/HCC) (HCC) documented in this encounter Results * (ABNORMAL) 5 HIAA, urine, 24 hour (07/13/2021 8:00 AM GRADE RECORDER) 5-HIAA, 24hr, ur 76.2(H) <=8.6 mg/24H [facility] Comment: In this sample, the excretion of 5HIAA was markedly elevated. Although this finding could be a pharmacological or dietary artifact (several fruits and vegetables contain large amounts of serotonin, the precursor of 5HIAA), it is a probable indicator of the presence of a serotonin-producing tumor. Interpretive Data Testing performed by: [facility], [place] [address]. Urine 07/13/2021 8:00 AM GRADE RECORDER 07/13/2021 3:26 PM GRADE RECORDER us Eren Cr MD LAB URINE ORDERABLES Final Re sult [facility] One [facility] [place] [address] * Volume and period, urine, 24 hour (07/13/2021 8:00 AM GRADE RECORDER) Volume, ur 875 mL [facility] Period, Urine Collection 1,440 min [facility] Urine 07/13/2021 8:00 AM GRADE RECORDER 07/13/2021 3:26 PM GRADE RECORDER us Eren Cr MD LAB URINE ORDERABLES Final Re sult [facility] One [facility] Department [place] [address] documented in this encounter Visit Diagnoses Diagnosis Neuroendocrine carcinoma (HCC) Other malignant neoplasm of unspecified site documented in this encounter Care Teams Transit Mix Operator Relationship Specialty Start Date End Date Julio César Briseno MD PCP - General 10/01/16 Eren Cr MD Referring Physician Medical Oncology 11/25/18 Yohana Bowen MD Radiation Oncologist Radiation Oncology 11/25/18 Sabrina Willard NP [address] [place] [address] Nurse Practitioner Medical Oncology 08/17/20 11/26/21 documented as of this encounter
--- OUTSIDE RECORDS SUMMARY | 2024-06-26 02:10 | XMS_ITS | Encounter Summary ---
Author Organization [facility] [place] Address [address] [place] [address] Phone Care Team Providers Care Finisher Special Stocks Name Role Phone Julio César Briseno MD Primary Care Provider Eren Cr MD Unavailable [phone] Yohana Bowen MD Unavailable Sabrina Willard NP Unavailable [phone] Reason for Visit * Reason Comments Port Draw Encounter Details Date Type Department Care Team (Late st Contact Info) Description 06/21/2021 9:45 AM UTILIZATION REVIEW COORDINATOR Clinical Support [facility] Oncology [address] [facility] 7th [place] [address] [place] [address] Social History Tobacco Use Types [...] file Legal Sex Female 2:41 PM UTILIZATION REVIEW COORDINATOR Gender Identity Not on file Sexual Orientation Straight 02/19/2021 9: 29 AM CDT Occupation Industry Job Start Date Job End Date retired Not on file Not on file Not on file documented as of this encounter Plan of Treatment Not on file documented as of this encounter Visit Diagnoses Not on filedocumented in this encounter Care Teams Finisher Special Stocks Relationship Specialty Start Date End Date Julio César Briseno MD PCP - General 10/01/16 Eren Cr MD Referring Physician Medical Oncology 11/25/18 Yohana Bowen MD Radiation Oncologist Radiation Oncology 11/25/18 Sabrina Willard NP [address] [place] [address] Nurse Practitioner Medical Oncology 08/17/20 11/26/21 documented as of this encounter
--- OUTSIDE RECORDS SUMMARY | 2024-06-26 02:11 | XMS_ITS | Encounter Summary ---
Author Organization [facility] Address [address] [place] [address] Phone Care Team Providers Care Physiology Teacher Name Role Phone Julio César Briseno MD Primary Care Provider Eren Cr MD Unavailable [phone] Yohana Bowen MD Unavailable Sabrina Willard NP Unavailable [phone] Encounter Details Date Type Department Care Team (Late st Contact Info) Description 06/14/2021 Orders Only [facility] Oncology [address] [place] [address] Yoana Murray [facility] Social History Tobacco Use Types Packs/Day Years [...] on file Legal Sex Female 2:41 PM SCOOPER Gender Identity Not on file Sexual Orientation Straight 02/19/2021 9: 29 AM CDT Occupation Industry Job Start Date Job End Date retired Not on file Not on file Not on file documented as of this encounter Plan of Treatment Not on file documented as of this encounter Visit Diagnoses Not on filedocumented in this encounter Care Teams Physiology Teacher Relationship Specialty Start Date End Date Julio César Briesno MD PCP - General 10/01/16 Eren Cr MD Referring Physician Medical Oncology 11/25/18 Yohana Bowen MD Radiation Oncologist Radiation Oncology 11/25/18 Sabrina Willard NP [address] [place] [address] Nurse Practitioner Medical Oncology 08/17/20 11/26/21 documented as of this encounter
--- OUTSIDE RECORDS SUMMARY | 2024-06-26 02:11 | XMS_ITS | Encounter Summary ---
Author Organization [facility] Address [address] [place] [address] Phone Care Team Providers Care K [employer] Principal Name Role Phone Julio César Briseno MD Primary Care Provider [phone] Eren Cr MD Unavailable [phone] Yohana Bowen MD Unavailable Sabrina Willard NP Unavailable [phone] Reason for Referral * MRI/CAT/PET Scan (Routine) - Closed Specialty Diagnoses / Procedures Referred By Evelyne bowman Referred To Contact Radiology Diagnoses Malignant neoplasm metastatic to liver (HCC) Bone metastasis Neuroendocrine carcinoma (HCC) Procedures MRI Abdomen Pelvis W WO Contrast Eren Cr MD [address] [place] [address] Phone: tel: fax: [address] [address] Referral ID Status Reason Start Date Expiration Date Visits Re quested Visits Authorized [id number] Closed 05/22/2021 06/21/2022 1 1 OSION CONTROL TECHNICIAN 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) Procedures HI OCTREOTIDE INJECTION, DEPOT Octreotide 28 Day Cycles - Carcinoid Eren Cr MD [address] [facility] [address] [place] [address] Phone: tel: fax: [address] [address] Phone: tel: fax: Referral ID Status Reason Start Date Expiration Date V isits Requested Visits Authorized [id number] Authorized 11/28/2017 02/05/2025 1 150 Encounter Details Date Type Department Care Team (Late st Contact Info) Description 05/22/2021 3:00 PM CORROSION CONTROL TECHNICIAN Office Visit [facility] On[facility] 7th [place] [address] [place] [address] Eren Cr MD [address] [facility] [address]C [facility] [place] [address] Malignant neoplasm metastatic to liver (CMS/HCC) (HCC) [...] on file Legal Sex Female 2:41 PM CORROSION CONTROL TECHNICIAN Gender Identity Not on file Sexual Orientation Straight 02/19/2021 9: 29 AM CDT Occupation Industry Job Start Date Job End Date retired Not on file Not on file Not on file documented as of this encounter Last Filed Vital Signs Vital Sign Reading Time Taken Comments Blood Pressure 158/83 05/22/2021 3:16 PM CORROSION CONTROL TECHNICIAN Pulse 77 05/22/2021 3:16 PM CORROSION CONTROL TECHNICIAN Temperature 36.3 ??C (97.4 ??F) 05/22/2021 3:16 PM CS T Respiratory Rate 16 05/22/2021 3:16 PM CORROSION CONTROL TECHNICIAN Oxygen Saturation 97% 05/22/2021 3:16 PM CORROSION CONTROL TECHNICIAN Inhaled Oxygen Concentration - - Weight 80.6 kg (177 lb 9.6 oz) 05/22/2021 3:16 P M CORROSION CONTROL TECHNICIAN Height - - Body Mass Index 29.55 03/23/2021 4:54 PM CDT documented in this encounter Progress Notes * Sabrina Willard COMMUNITY ARTIST - 05/22/2021 3:00 PM CST MEDICAL ONCOLOGY [...] she also underwent right colect[facility] in the [facility] [place] by Dr. Greyson Reeves. Biopsy [...] No rashes over exposed skin NEURO: A&Ox4, wheel filler grossly intact by conversation, moving all [...] Cr Jr., MD at 05/24/2021 3:39 PM CORROSION CONTROL TECHNICIAN OSION CONTROL TECHNICIAN OSION CONTROL TECHNICIAN documented in this encounter Plan of Treatment Not on file documented as of this encounter Results * (ABNORMAL) Chromogranin A (06/19/2021 2:47 PM CORROSION CONTROL TECHNICIAN) Chromogranin A 1630(H) <93 ng/mL JASON LEAVITT [...] a homogeneous time-resolved immunofluorescent assay manufactured by [employer] and performed on the Dynasil Kryptor Compact Plus. ? Values obtained with different assay methods or kits may be different and cannot be used interchangeably. ? Test results cannot be interpreted as absolute evidence for the presence or absence of malignant disease. Test Performed by: [address] [address] Taxi Dancer: Immanuel Novak M.D. Ph.D.; CLIA# [id number] Blood 06/19/2021 2:47 PM CORROSION CONTROL TECHNICIAN 06/19/2021 4:51 PM CORROSION CONTROL TECHNICIAN us Eren Cr MD LAB BLOOD ORDERABLES Final Re sult JASON BLACK One [facility] [place] [address] * (ABNORMAL) Comprehensive metabolic panel (06/19/2021 2:47 PM CORROSION CONTROL TECHNICIAN) Sodium 139 135 - 145 mmol/L [facility] Comment:Testing performed by : [facility], [address] [place] [phone] Potassium, pl 4.0 3.3 - 4.9 mmol/L [facility] Comment:Testing performed by : [facility], [address] [place] [phone] Chloride 104 97 - 110 mmol/L [facility] Comment:Testing performed by : [facility], [address] [place] [phone] CO2 26 22 - 32 mmol/L [facility] Comment:Testing performed by : [facility], [address] [place] [phone] Anion gap 9 2 - 15 mmol/L [facility] Comment:Testing performed by : [facility], [address] [place] [phone] BUN 13 8 - 25 mg/dL [facility] Comment:Testing performed by : [facility], [address] [place] [phone] Creatinine 0.97 0.60 - 1.10 mg/dL [facility] Comment:Testing performed by : [facility], [address] [place] [phone] Glucose 107 70 - 199 mg/dL [facility] Comment: Interpretive Data Fasting glucose >/= [...] revised 2017. Testing performed by: [facility], [address] [place] [phone] Calcium 10.9(H) 8.5 - 10.3 mg/dL [facility] Comment:Testing performed by : [facility], [address] [place] [phone] Bilirubin, total 0.6 0.1 - 1.2 mg/dL [facility] Comment:Testing performed by : [facility], [address] [place] [phone] Protein, pl 7.3 6.5 - 8.5 g/dL [facility] Comment:Testing performed by : [facility], [address] [place] [phone] Albumin 4.6 3.5 - 5.0 g/dL [facility] Comment:Testing performed by : [facility], [address] [place] [phone] Alk phos 96 40 - 130 Units/L [facility] Comment:Testing performed by : [facility], [address] [place] [phone] ALT 13 7 - 45 Units/L [facility] Comment:Testing performed by : [facility], [address] [place] [phone] AST 20 10 - 45 Units/L [facility] Comment:Testing performed by : [facility], [address] [place] [phone] Blood 06/19/2021 2:47 PM CORROSION CONTROL TECHNICIAN 06/19/2021 2:56 PM CORROSION CONTROL TECHNICIAN Eren Cr MD LAB BLOOD ORDERABLES Final Re sult [facility] One [facility] Department [place] [address] * (ABNORMAL) CBC with auto differential (06/19/2021 2:47 PM CORROSION CONTROL TECHNICIAN) WBC 6.9 3.8 - 9.8 K/cumm [facility] Comment:Testing performed by : [facility], [address] [place] [phone] Hgb 14.4 12.1 - 15.1 g/dL [facility] Comment:Testing performed by : [facility], [address] [place], [place] [phone] Hct 42.1 36.1 - 44.3 % [facility] Comment:Testing performed by : [facility], [address] [place], [place] [phone] Plt 150 140 - 440 K/cumm [facility] Comment:Testing performed by : [place] [id number] MPV 8.4 6.8 - 10.4 fL [facility] Comment:Testing performed by : [facility], [address] [place] [address] RBC 4.68 3.90 - 5.00 M/cumm [facility] Comment:Testing performed by : [place] [address] MCV 90.0 80.0 - 97.6 fL [facility] Comment:Testing performed by : [place] [id number] MCH 30.7 26.7 - 33.7 pg [facility] Comment:Testing performed by : [facility], [address] [place], [place] [phone] MCHC 34.2 32.7 - 35.5 g/dL [facility] Comment:Testing performed by : [place] [address] RDW CV 15.6(H) 11.8 - 14.6 % [facility] Comment:Testing performed by : [place] [id number] NRBC abs 0.00 0.00 - 0.01 K/cumm JASON BLACK Comment:Testing performed by : [place] [id number] Blood 06/19/2021 2:47 PM CORROSION CONTROL TECHNICIAN 06/19/2021 2:56 PM CORROSION CONTROL TECHNICIAN us Eren Cr MD LAB BLOOD ORDERABLES Final Re sult JASON BLACK [facility] [place] [address] * (ABNORMAL) Vitamin D 25 hydroxy (06/19/2021 2:47 PM CORROSION CONTROL TECHNICIAN) [facility] Vitamin D 25-OH 28(L) 30 - 80 ng/mL [facility] Blood 06/19/2021 2:47 PM CORROSION CONTROL TECHNICIAN 06/19/2021 4:41 PM CORROSION CONTROL TECHNICIAN Eren Cr MD LAB BLOOD ORDERABLES Final Re sult Performing Organization Address [facility] [place] [address] * Phosphorus (06/19/2021 2:47 PM CORROSION CONTROL TECHNICIAN) [facility] Phosphorus, pl 2.8 2.3 - 4.5 mg/dL [facility] Comment:Testing performed by : [facility], [address] [place] [phone] Blood 06/19/2021 2:47 PM CORROSION CONTROL TECHNICIAN 06/19/2021 2:56 PM CORROSION CONTROL TECHNICIAN Eren Cr MD LAB BLOOD ORDERABLES Final Re sult Performing Organization Address [facility] de Phone Number [facility] [place], [place] [id number] * (ABNORMAL) Lipid panel (06/19/2021 2:47 PM CORROSION CONTROL TECHNICIAN) [facility] Cholesterol 168 30 - 199 mg/dL [facility] [...] on 2018. Triglycerides 193(H) <=149 mg/dL [facility] Comment: Interpretive Data Ages < or [...] on 2018. HDL 64 >=40 mg/dL [facility] Comment: Interpretive Data Ages < or [...] 2018. LDL, calculated 65 <=129 mg/dL [facility] Comment: Interpretive [...] revised on 2018. Non-HDL Cholesterol 104 mg/dL [facility] Comment: Interpretive Data [...] Chol/HDL ratio 3 [facility] Blood 06/19/2021 2:47 PM CORROSION CONTROL TECHNICIAN 06/19/2021 4:41 PM CORROSION CONTROL TECHNICIAN us Eren Cr MD LAB BLOOD ORDERABLES Final Re sult [facility] One [facility] Department [place] [address] * MRI Abdomen Pelvis W WO Contrast (06/15/2021 5:37 PM CORROSION CONTROL TECHNICIAN) Anatomical Region Laterality Modality Body N/A Magnetic Resonan ce 06/16/2021 8:44 AM CORROSION CONTROL TECHNICIAN Impressions 06/16/2021 11:46 AM CORROSION CONTROL TECHNICIAN 1. ??Majority of liver lesions have increased in size, and the vaginal cuff lesion is likely also increased in size, indicating disease progression. Dictated by: Joyce Burgos MD The radiology attending physician has personally reviewed this study, and had reviewed and/or edited this written report and agrees with it. Electronically signed by: Mikey Abernathy M.D. Narrative 06/16/2021 11:46 AM CORROSION CONTROL TECHNICIAN EXAMINATION: 1. MAGNETIC RESONANCE IMAGING OF THE [...] 06/19/2021 documented in this encounter Care Teams [employer] Principal Relationship Specialty Start Date End Date Julio César Briseno MD PCP - General 10/01/16 Eren Cr MD Referring Physician Medical Oncology 11/25/18 Yohana Bowen MD Radiation Oncologist Radiation Oncology 11/25/18 Sabrina Willard NP [address] [place] [address] Nurse Practitioner Medical Oncology 08/17/20 11/26/21 documented as of this encounter
--- OUTSIDE RECORDS SUMMARY | 2024-06-26 02:11 | XMS_ITS | Encounter Summary ---
Author Organization [facility] Address [address] [place] [address] Phone Care Team Providers Care Field Contact Technician Name Role Phone Julio César Briseno MD Primary Care Provider [phone] Eren Cr MD Unavailable [phone] Yohana Bowen MD Unavailable Sabrina Willard NP Unavailable [phone] Reason for Visit * Reason Comments Injections * Episode Based Medications (Routine) - Authorized Specialty Diagnoses / Procedures Referred By Contac t Referred To Contact Oncology Diagnoses Neuroendocrine carcinoma (HCC) Malignant neoplasm metastatic to liver (HCC) Procedures [place] OCTREOTIDE INJECTION, DEPOT Octreotide 28 Day Cycles - Carcinoid Eren Cr MD [address] [facility] [address] [place] [address] Phone: tel: fax: [address] [address] Phone: tel: fax: Referral ID Status Reason Start Date Expiration Date V isits Requested Visits Authorized [id number] Authorized 11/28/2017 02/05/2025 1 150 Encounter Details Date Type Department Care Team (Late st Contact Info) Description 03/27/2021 3:30 PM CDT Infusion [facility] Oncology [address] [facility] 7th [place] [address] Neuroendocrine carcinoma (CMS/HCC) (HCC) (Primary Dx); Malignant [...] on file Legal Sex Female 2:41 PM YARD SWITCHER Gender Identity Not on file Sexual Orientation Straight 02/19/2021 9: 29 AM CDT Occupation Industry Job Start Date Job End Date retired Not on file Not on file Not on file documented as of this encounter Nursing Notes * Jef Alcocer RN - 03/27/2021 3:30 PM CDT Oncology Nursing Note [facility] La Chung is a 70 y.o. [...] First Orde red Date ONCBCN NURSING COMMUNICATION [id number] 1 03/27 ONCBCN NURSING COMMUNICATION [id number] 1 0 03/27/2021 PHYSICIAN COMMUNICATION ORDER 1 03/27/2021 Appointment Requests Count Last Ordered Date Fi rst Ordered Date ONCBCN INJECTION APPOINTMENT REQUEST 1 03/09 documented in this encounter Care Teams Field Contact Technician Relationship Specialty Start Date End Date Julio César Briseno MD PCP - General 10/01/16 Eren Cr MD Referring Physician Medical Oncology 11/25/18 Yohana Bowen MD Radiation Oncologist Radiation Oncology 11/25/18 Sabrina Willard NP [address] [place] [address] Nurse Practitioner Medical Oncology 08/17/20 11/26/21 documented as of this encounter
--- OUTSIDE RECORDS SUMMARY | 2024-06-26 02:11 | XMS_ITS | Encounter Summary ---
Author Organization [facility] Address [address] [place] [address] Phone Care Team Providers Care Clock And Watch Hands Painter Name Role Phone Julio César Briseno MD Primary Care Provider Eren Cr MD Unavailable Yohana Bowen MD Unavailable Sabrina Willard NP Unavailable Encounter Details Date Type Department Care Team (Late st Contact Info) Description 03/16/2021 Orders Only [facility] Oncology [address] [facility] 7th [place] [address] [place] [address] Eren Cr MD [address] [facility] [address] [place] [address] Neuro-endocrine carcinoma (CMS/HCC) (HCC) (Primary Dx) Social [...] file Legal Sex Female 2: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 Gender Identity Not on file Sexual [...] Sodium 137 135 - 145 mmol/L [facility] Comment:Testing performed by : [facility], [address] [place] [phone] Potassium, pl 3.4 3.3 - 4.9 mmol/L [facility] Comment:Testing performed by : [facility], [address] [place] [phone] Chloride 107 97 - 110 mmol/L [facility] Comment:Testing performed by : [facility], [address] [place] [phone] CO2 21(L) 22 - 32 mmol/L [facility] Comment:Testing performed by : [facility], [address] [place] [phone] Anion gap 10 2 - 15 mmol/L [facility] Comment:Testing performed by : [address] [address] BUN 10 8 - 25 mg/dL [facility] Comment:Testing performed by : [facility], [address] [place] [phone] Creatinine 0.82 0.60 - 1.10 mg/dL [facility] Comment:Testing performed by : [facility], [address] [place] [phone] Glucose 151 70 - 199 mg/dL [facility] Comment: Interpretive Data Fasting [...] 2017. Testing performed by: [facility], [address] [place] [phone] Calcium 9.9 8.5 - 10.3 mg/dL [facility] Comment:Testing performed by : [facility], [address] [place] [phone] Bilirubin, total 0.4 0.1 - 1.2 mg/dL [facility] Comment:Testing performed by : [facility], [address] [place] [phone] Protein, pl 6.6 6.5 - 8.5 g/dL [facility] Comment:Testing performed by : [facility], [address] [place] [phone] Albumin 3.7 3.5 - 5.0 g/dL [facility] Comment:Testing performed by : [facility], [address] [place] [phone] Alk phos 165(H) 40 - 130 Units/L [facility] Comment:Testing performed by : [facility], [address] [place] [phone] ALT 28 7 - 45 Units/L [facility] Comment:Testing performed by : [facility], [address] [place] [phone] AST 36 10 - 45 Units/L [facility] Comment:Testing performed by : [facility], [address] [place] [phone] Blood 03/17/2021 7:50 AM CDT 03/17/2021 7:56 AM CDT us Eren Cr MD LAB BLOOD ORDERABLES Final Re sult [facility] One [facility] [place] [address] * (ABNORMAL) CBC with auto differential (03/17/2021 7:50 AM CDT) WBC 2.9(L) 3.8 - 9.8 K/cumm [facility] Comment:Testing performed by : [facility], [address] [place] [address] Hgb 11.3(L) 12.1 - 15.1 g/dL [facility] Comment:Testing performed by : [place] [address] Hct 33.0(L) 36.1 - 44.3 % [facility] Comment:Testing performed by : [place] [address] Plt 95(L) 140 - 440 K/cumm [facility] Comment:Testing performed by : [place] [address] MPV 8.1 6.8 - 10.4 fL [facility] Comment:Testing performed by : [place] [address] RBC 3.89(L) 3.90 - 5.00 M/cumm [facility] Comment:Testing performed by : [place] [id number] MCV 84.9 80.0 - 97.6 fL [facility] Comment:Testing performed by : [place] [id number] MCH 29.0 26.7 - 33.7 pg [facility] Comment:Testing performed by : [place] [id number] MCHC 34.2 32.7 - 35.5 g/dL [facility] Comment:Testing performed by : [place] [id number] RDW CV 13.9 11.8 - 14.6 % [facility] Comment:Testing performed by : [place] [id number] NRBC abs 0.00 0.00 - 0.01 K/cumm [facility] Comment:Testing performed by : [facility], [address] [place], [place] [id number] Blood 03/17/2021 7:50 AM CDT 03/17/2021 7:56 AM CDT Eren Cr MD LAB BLOOD ORDERABLES Final Re sult [facility] One [facility] Department [place] [address] documented in this encounter Visit Diagnoses Diagnosis Neuro-endocrine carcinoma (HCC)- Primary Other malignant neoplasm of unspecified site documented in this encounter Orders Appointment Requests Count Last Ordered Date Fi rst Ordered Date ONCBCN INFUSION APPT REQUEST 1 03/17/2021 ONCBCN LAB APPOINTMENT 1 03/17/2021 documented in this encounter Care Teams Clock And Watch Hands Painter Relationship Specialty Start Date End Date Julio César Briseno MD PCP - General 10/01/16 Eren Cr MD Referring Physician Medical Oncology 11/25/18 Yohana Bowen MD Radiation Oncologist Radiation Oncology 11/25/18 Sabrina Willard NP [address] [place] [address] Nurse Practitioner Medical Oncology 08/17/20 11/26/21 documented as of this encounter
--- OUTSIDE RECORDS SUMMARY | 2024-06-26 02:11 | XMS_ITS | Encounter Summary ---
Author Organization [facility] Address [address] [place] [address] Phone Care Team Providers Care Barge Engineer Name Role Phone Julio César Briseno MD Primary Care Provider [phone] Eren Cr MD Unavailable [phone] Yohana Bowen MD Unavailable Sabrina Willard NP Unavailable [phone] Encounter Details Date Type Department Care Team (Late st Contact Info) Description 05/22/2021 Orders Only [facility] Surgery [address] [facility] Advanced Medicine 5th [place] [address] [place] [address] Minerva Gibbons Nipple discharge in [...] on file Legal Sex Female 2: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
--- OUTSIDE RECORDS SUMMARY | 2024-06-26 02:11 | XMS_ITS | Encounter Summary ---
Author Organization 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 [address] [place] [address] Phone: tel: fax: [facility] [address] [address] Phone: tel: fax: Referral ID Status Reason Start Date Expiration Date V isits Requested Visits Authorized [id number] Authorized 11/28/2017 02/05/2025 1 150 Encounter Details Date Type Department Care Team (Late st Contact Info) Description 05/22/2021 2:30 PM BEVEL FACE STONER AND POLISHER Lab [facility] Oncology [address] [facility] 7th [place] [address] [place] [id number] Neuroendocrine carcinoma (CMS/HCC) (HCC); Malignant neoplasm metastatic [...] on file Legal Sex Female 2:41 PM BEVEL FACE STONER AND POLISHER Gender Identity Not on file Sexual Orientation Straight 02/19/2021 9: 29 AM CDT Occupation Industry Job Start Date Job End Date retired Not on file Not on file Not on file documented as of this encounter Plan of Treatment Not on file documented as of this encounter Procedures Procedure Name Priority Date/Time Associated Diagnosis Comments EGFR STAT 05/22/2021 2:48 PM BEVEL FACE STONER AND POLISHER Neuroendocrine carcinoma (CMS/HCC) (HCC) Malignant neoplasm metastatic to liver (CMS/HCC) (HCC) DIFFERENTIAL AUTO Routine 05/22/2021 2:4 8 PM BEVEL FACE STONER AND POLISHER Neuroendocrine carcinoma (CMS/HCC) (HCC) Malignant neoplasm metastatic to liver (CMS/HCC) (HCC) CHROMOGRANIN A Routine 05/22/2021 2:48 PM BEVEL FACE STONER AND POLISHER Neuroendocrine carcinoma (CMS/HCC) (HCC) Malignant neoplasm metastatic to liver (CMS/HCC) (HCC) CBC WITH AUTO DIFFERENTIAL Routine 05/22/2021 2:48 PM BEVEL FACE STONER AND POLISHER Neuroendocrine carcinoma (CMS/HCC) (HCC) Malignant neoplasm metastatic to liver (CMS/HCC) (HCC) VITAMIN D 25 HYDROXY Routine 05/22/2021 2:48 PM BEVEL FACE STONER AND POLISHER Neuroendocrine carcinoma (CMS/HCC) (HCC) Malignant neoplasm metastatic to liver (CMS/HCC) (HCC) PHOSPHORUS Routine 05/22/2021 2:48 PM BEVEL FACE STONER AND POLISHER Neuroendocrine carcinoma (CMS/HCC) (HCC) Malignant neoplasm metastatic to liver (CMS/HCC) (HCC) LIPID PANEL Routine 05/22/2021 2:48 PM BEVEL FACE STONER AND POLISHER Neuroendocrine carcinoma (CMS/HCC) (HCC) Malignant neoplasm metastatic to liver (CMS/HCC) (HCC) COMPREHENSIVE METABOLIC PANEL STAT 05/22/2021 2:48 PM BEVEL FACE STONER AND POLISHER Neuroendocrine carcinoma (CMS/HCC) (HCC) Malignant neoplasm metastatic to liver (CMS/HCC) (HCC) documented in this encounter Results * (ABNORMAL) eGFR (05/22/2021 2:48 PM BEVEL FACE STONER AND POLISHER) [facility] eGFR 66(L) 90 - 130 mL/min/1.7 [...] Testing performed by: [facility], [address], [place] [address] Blood 05/22/2021 2:48 PM BEVEL FACE STONER AND POLISHER 05/22/2021 2:50 PM BEVEL FACE STONER AND POLISHER us Eren Cr MD LAB BLOOD ORDERABLES Final Re sult [facility] Department [place] [address] * (ABNORMAL) Differential, auto (05/22/2021 2:48 PM BEVEL FACE STONER AND POLISHER) Neutrophil abs 3.2 1.8 - 6.6 K/cumm CERNER BJ Comment:Testing performed by : [facility], [address] [place] [phone] Lymphocyte abs 0.5(L) 1.2 - 3.3 K/cumm CERNER BJ Comment:Testing performed by : [facility], [address] [place] [phone] Monocyte abs 0.5 0.2 - 1.2 K/cumm CERNER BJ Comment:Testing performed by : [facility], [address] [place] [phone] Eosinophil abs 0.1 0.0 - 0.5 K/cumm CERNER BJ Comment:Testing performed by : [facility], [address] [place] [phone] Basophil abs 0.0 0.0 - 0.2 K/cumm CERNER BJ Comment:Testing performed by : [facility], [address] [place] [phone] Neutrophil pct 75.0 % CERNER BJ Comment: Interpretive Data Percent cell count reference ranges are not reported, since discordance with absolute values may lead to misinterpretation of CBC data. Current Interpretive Data was last revised on 2017. Testing performed by: [facility], [address] [place] [phone] Lymphocyte pct 11.2 % CERNER BJ Comment: Interpretive Data Percent cell count reference ranges are not reported, since discordance with absolute values may lead to misinterpretation of CBC data. Current Interpretive Data was last revised on 2017. Testing performed by: [facility], [address] [facility] [place] [address] Monocyte pct 10.7 % JASON BLACK Comment:Testing performed by : [facility], [address] [facility] [place] [address] Eosinophil pct 2.4 % JASON BLACK Comment:Testing performed by : [facility], [facility] [place] [address] Basophil pct 0.7 % JASON BLACK Comment:Testing performed by : [facility], [address] [place] [phone] Blood 05/22/2021 2:48 PM BEVEL FACE STONER AND POLISHER 05/22/2021 2:50 PM BEVEL FACE STONER AND POLISHER us Eren Cr MD LAB BLOOD ORDERABLES Final Re sult [facility] Department [place] [address] * (ABNORMAL) Lipid panel (05/22/2021 2:48 PM BEVEL FACE STONER AND POLISHER) Cholesterol 174 30 - 199 mg/dL JASON BLACK Comment: [...] revised on 2018. HDL 62 >=40 mg/dL [facility] Comment: Interpretive Data [...] 2018. LDL, calculated 69 <=129 mg/dL [facility] on 2018. Non-HDL Cholesterol 112 mg/dL [facility] [...] revised on 2018. Chol/HDL ratio 3 [facility] Blood 05/22/2021 2:48 PM BEVEL FACE STONER AND POLISHER 05/22/2021 3:08 PM BEVEL FACE STONER AND POLISHER Eren Cr MD LAB BLOOD ORDERABLES Final Re sult [facility] Department [place] [address] * (ABNORMAL) Phosphorus (05/22/2021 2:48 PM BEVEL FACE STONER AND POLISHER) Phosphorus, pl 2.0(L) 2.3 - 4.5 mg/dL [facility] Comment:Testing performed by : [facility], [address] [place] [phone] Blood 05/22/2021 2:48 PM BEVEL FACE STONER AND POLISHER 05/22/2021 2:50 PM BEVEL FACE STONER AND POLISHER Eren Cr MD LAB BLOOD ORDERABLES Final Re sult [facility] [place] [address] * (ABNORMAL) Vitamin D 25 hydroxy (05/22/2021 2:48 PM BEVEL FACE STONER AND POLISHER) [facility] Vitamin D 25-OH 27(L) 30 - 80 ng/mL [facility] Blood 05/22/2021 2:48 PM BEVEL FACE STONER AND POLISHER 05/22/2021 3:08 PM BEVEL FACE STONER AND POLISHER Eren Cr MD LAB BLOOD ORDERABLES Final Re sult Performing Organization Address [facility] Co de Phone Number [facility] [place] [address] * (ABNORMAL) CBC with auto differential (05/22/2021 2:48 PM BEVEL FACE STONER AND POLISHER) [facility] WBC 4.2 3.8 - 9.8 K/cumm [facility] Comment:Testing performed by : [facility], [address] [place] [phone] Hgb 12.4 12.1 - 15.1 g/dL [facility] Comment:Testing performed by : [facility], [address] [place] [phone] Hct 35.9(L) 36.1 - 44.3 % [facility] Comment:Testing performed by : [facility], [address] [place] [phone] Plt 151 140 - 440 K/cumm [facility] Comment:Testing performed by : [facility], [address] [place] [phone] MPV 7.5 6.8 - 10.4 fL [facility] Comment:Testing performed by : [facility], [address] [place] [phone] RBC 3.98 3.90 - 5.00 M/cumm [facility] Comment:Testing performed by : [facility], [address] [place] [phone] MCV 90.1 80.0 - 97.6 fL JASON BLACK Comment:Testing performed by : [facility], [address] [place] [phone] MCH 31.1 26.7 - 33.7 pg JASON BLACK Comment:Testing performed by : [facility], [address] [place] [phone] MCHC 34.5 32.7 - 35.5 g/dL JASON BLACK Comment:Testing performed by : [facility], [address] [place] [phone] RDW CV 18.1(H) 11.8 - 14.6 % JASON BLACK Comment:Testing performed by : [facility], [address] [place] [phone] NRBC abs 0.01 0.00 - 0.01 K/cumm JASON BLACK Comment:Testing performed by : [facility], [address] [place] [phone] Blood 05/22/2021 2:48 PM BEVEL FACE STONER AND POLISHER 05/22/2021 2:50 PM BEVEL FACE STONER AND POLISHER us Eren Cr MD LAB BLOOD ORDERABLES Final Re sult [facility] BL[facility] Department [place] [address] * Comprehensive metabolic panel (05/22/2021 2:48 PM BEVEL FACE STONER AND POLISHER) Sodium 140 135 - 145 mmol/L JASON BLACK Comment:Testing performed by : [facility], [address] [place] [phone] Potassium, pl 3.7 3.3 - 4.9 mmol/L JASON BLACK Comment:Testing performed by : [facility], [address] [place] [phone] Chloride 106 97 - 110 mmol/L JASON BLACK Comment:Testing performed by : [address] [address] CO2 28 22 - 32 mmol/L JASON BLACK Comment:Testing performed by : [facility], [address] [place] [phone] Anion gap 6 2 - 15 mmol/L CERNER BJ Comment:Testing performed by : [facility], [address] [place] [phone] BUN 8 8 - 25 mg/dL CERNER BJ Comment:Testing performed by : [facility], [address] [place] [phone] Creatinine 0.88 0.60 - 1.10 mg/dL CERNER BJ Comment:Testing performed by : [facility], [address] [place] [phone] Glucose 131 70 - 199 mg/dL CERNER [...] Testing performed by: [facility], [address] [place] [phone] Calcium 10.1 8.5 - 10.3 mg/dL CERNER BJ Comment:Testing performed by : [address] [address] Bilirubin, total 0.5 0.1 - 1.2 mg/dL CERNER BJ Comment:Testing performed by : [address] [phone] Protein, pl 6.6 6.5 - 8.5 g/dL CERNER BJ Comment:Testing performed by : [address] [phone] Albumin 4.2 3.5 - 5.0 g/dL CERNER BJ Comment:Testing performed by : [address] [address] Alk phos 82 40 - 130 Units/L CERNER BJ Comment:Testing performed by : [facility], [address] [facility] [place] [address] ALT 16 7 - 45 Units/L JASON BLACK Comment:Testing performed by : [facility], [address] [facility] [place] [address] AST 25 10 - 45 Units/L [facility] Comment:Testing performed by : [facility], [address] [place] [phone] Blood 05/22/2021 2:48 PM BEVEL FACE STONER AND POLISHER 05/22/2021 2:50 PM BEVEL FACE STONER AND POLISHER us Eren Cr MD LAB BLOOD ORDERABLES Final Re sult [facility] Department [place] [address] * (ABNORMAL) Chromogranin A (05/22/2021 2:48 PM BEVEL FACE STONER AND POLISHER) Chromogranin A 1083(H) <93 ng/mL JASON BLACK [...] homogeneous time-resolved immunofluorescent assay manufactured by [employer] and performed on the [employer] Kryptor Compact Plus. ? Values obtained with different assay methods or kits may be different and cannot be used interchangeably. ? Test results cannot be interpreted as absolute evidence for the presence or absence of malignant disease. Test Performed by: [address] [address] Treatment Plant Mechanic: Immanuel Novak M.D. Ph.D.; CLIA# [id number] Blood 05/22/2021 2:48 PM BEVEL FACE STONER AND POLISHER 05/22/2021 5:59 PM BEVEL FACE STONER AND POLISHER us Eren Cr MD LAB BLOOD ORDERABLES Final Re sult [facility] Department [place] [address] documented in this encounter Visit Diagnoses Diagnosis Neuroendocrine carcinoma (HCC) Other malignant neoplasm of unspecified site Malignant neoplasm metastatic to liver (HCC) documented in this encounter Orders Appointment Requests Count Last Ordered Date Fi rst Ordered Date ONCBCN LAB APPOINTMENT 1 05/22/2021 documented in this encounter Care Teams Education Department Registrar Relationship Specialty Start Date End Date Julio César Briseno MD PCP - General 10/01/16 Eren Cr MD Referring Physician Medical Oncology 11/25/18 Yohana Bowen MD Radiation Oncologist Radiation Oncology 11/25/18 Sabrina Willard NP [address] [place] [address] Nurse Practitioner Medical Oncology 08/17/20 11/26/21 documented as of this encounter
--- OUTSIDE RECORDS SUMMARY | 2024-06-26 02:11 | XMS_ITS | Encounter Summary ---
Author Organization [facility] Address [address] [place] [address] Phone Care Team Providers Care Forms Examiner Name Role Phone Julio César Briseno MD Primary Care Provider Eren Cr MD Unavailable Yohana Bowen MD Unavailable Sabrina Willard NP Unavailable Encounter Details Date Type Department Care Team (Late st Contact Info) Description 06/14/2021 Orders Only [facility] Oncology [address] [facility] 7th [place] [address] [place] [phone] Eren Cr MD [address] [facility] [address] [place] [address] Neuroendocrine carcinoma (CMS/HCC) (HCC) (Primary Dx) Social [...] on file Legal Sex Female 2:41 PM ASSURANCE SPECIALIST Gender Identity Not on file [...] 06/19/2021 documented in this encounter Care Teams Forms Examiner Relationship Specialty Start Date End Date Julio César Briseno MD PCP - General 10/01/16 Eren rC MD Referring Physician Medical Oncology 11/25/18 Yohana Bowen MD Radiation Oncologist Radiation Oncology 11/25/18 Sabrina Willard NP [address] [place] [address] Nurse Practitioner Medical Oncology 08/17/20 11/26/21 documented as of this encounter
--- OUTSIDE RECORDS SUMMARY | 2024-06-26 02:11 | XMS_ITS | Encounter Summary ---
Author Organization [facility] Address [address] [place] [address] Phone Care Team Providers Care Watch Inspector Name Role Phone Julio César Briseno MD Primary Care Provider [phone] Eren Cr MD Unavailable [phone] Yohana Bowen MD Unavailable Sabrina Willard NP Unavailable [phone] Reason for Visit * Reason Comments Injections * Episode Based Medications (Routine) - Authorized Specialty Diagnoses / Procedures Referred By Contac t Referred To Contact Oncology Diagnoses Neuroendocrine carcinoma (HCC) Malignant neoplasm metastatic to liver (HCC) Procedures [place] OCTREOTIDE INJECTION, DEPOT Octreotide 28 Day Cycles - Carcinoid Eren Cr MD [address] [facility] [address] [place] [address] Phone: tel: fax: [address] [address] Phone: tel: fax: Referral ID Status Reason Start Date Expiration Date V isits Requested Visits Authorized [id number] Authorized 11/28/2017 02/05/2025 1 150 Encounter Details Date Type Department Care Team (Late st Contact Info) Description 02/27/2021 10:00 AM CDT Infusion [facility] Oncology [address] [facility] 7th [place] [address] Neuroendocrine carcinoma (CMS/HCC) (HCC) (Primary Dx); Malignant [...] on file Legal Sex Female 2:41 PM REMARKETING MANAGER Gender Identity Not on file Sexual Orientation Straight 02/19/2021 9: 29 AM CDT Occupation Industry Job Start Date Job End Date retired Not on file Not on file Not on file documented as of this encounter Nursing Notes * Jef Alcocer RN - 02/27/2021 10:00 AM CDT Oncology Nursing Note [facility] ONCOLOGY La Chung is a 70 [...] kg (178 lb) Patient: met treatment parameters aL Chung tolerated injection well Discharge Plan Discharge [...] First Orde red Date ONCBCN NURSING COMMUNICATION [id number] 1 02/27 ONCBCN NURSING COMMUNICATION [id number] 1 0 02/27/2021 PHYSICIAN COMMUNICATION ORDER 1 02/27/2021 Appointment Requests Count Last Ordered Date Fi rst Ordered Date ONCBCN INJECTION APPOINTMENT REQUEST 1 02/06 documented in this encounter Care Teams Watch Inspector Relationship Specialty Start Date End Date Julio César Briseno MD PCP - General 10/01/16 Eren Cr MD Referring Physician Medical Oncology 11/25/18 Yohana Bowen MD Radiation Oncologist Radiation Oncology 11/25/18 Sabrina Willard NP [address] [place] [address] Nurse Practitioner Medical Oncology 08/17/20 11/26/21 documented as of this encounter
--- OUTSIDE RECORDS SUMMARY | 2024-06-26 02:11 | XMS_ITS | Encounter Summary ---
Author Organization [facility] Address [address] [place] [address] Phone Care Team Providers Care Auto Service Mechanic Name Role Phone Julio César Briseno MD Primary Care Provider [phone] Eren Cr MD Unavailable [phone] Yohana Bowen MD Unavailable Sabrina Willard NP Unavailable [phone] Reason for Referral * MRI/CAT/PET Scan (Routine) - Closed Specialty Diagnoses / Procedures Referred By Evelyne bowman Referred To Contact Radiology Diagnoses Neuroendocrine carcinoma (HCC) Bone metastasis Malignant neoplasm metastatic to liver (HCC) Procedures CT chest with contrast Eren Cr MD [address] [place] [address] Phone: tel: fax: [address] [address] Referral ID Status Reason Start Date Expiration Date Visits Re quested Visits Authorized [id number] Closed 04/24/2021 05/24/2022 1 1 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) Procedures UT OCTREOTIDE INJECTION, DEPOT Octreotide 28 Day Cycles - Carcinoid Eren Cr MD [address] [facility] [address] [place] [address] Phone: tel: fax: [address] [address] Phone: tel: fax: Referral ID Status Reason Start Date Expiration Date V isits Requested Visits Authorized [id number] Authorized 11/28/2017 02/05/2025 1 150 Encounter Details Date Type Department Care Team (Late st Contact Info) Description 04/24/2021 3:00 PM CDT Office Visit [facility] Oncology [address] [facility] Advanced Medicine 7th [place] [address] [place] [address] Eren Cr MD [address] [facility] [address] [facility] [place] [address] Neuroendocrine carcinoma (CMS/HCC) (HCC) (Primary Dx); Bone [...] on file Legal Sex Female 2:41 PM MINIATURE SET CONSTRUCTOR Gender Identity Not on file Sexual [...] ??? JOINT REPLACEMENT Left 2014 ? ? UT REMOVAL OF TONSILS,<12 Y/O Tonsillectomy - (Added by TW Conv) ??? UT TOTAL ABDOM HYSTERECTOMY Hysterectomy - (Added by [...] mg capsule, Take 1 tablet by mouth legal activity adjudicator before breakfast, Disp: , Rfl: ??? cholecalciferol (VITAMIN D-3) 2,000 unit capsule, Take 1 capsule (2,000 Units total) by mouth daily (Patient taking differently: Take 2,000 Units by mouth daily ), Disp: 30 capsule, Rfl: 2 ??? clotrimazole-betamethasone (LOTRISONE) cream, clotrimazole-betamethasone 1 %-0.05 % topical cream APPLY EXTERNALLY TO ABDOMEN TWICE DAILY NEEDED, Disp: , Rfl: ??? coenzyme I56-[id number] E (CO Q-10, WITH VIT E,) 100-5 mg-unit capsule, Take by mouth legal activity adjudicator before breakfast , Disp: , Rfl: ??? [...] taking differently: Take 30 mg by mouth legal activity adjudicator before breakfast ), Disp: 30 capsule, Rfl: [...] per tablet, Take 0.5 tablets by mouth legal activity adjudicator before breakfast decrease dosage to 0.5 tablet [...] * (ABNORMAL) Chromogranin A (05/22/2021 2:48 PM MINIATURE SET CONSTRUCTOR) Chromogranin A 1083(H) <93 ng/mL [facility] Comment: Impaired renal or hepatic function or treatment with proton pump inhibitors may result in artifactual elevations of Chromogranin A. ADDITIONAL INFORMATION This test was developed and its performance characteristics determined by [facility] in a manner consistent with CLIA requirements. This test has not been cleared or approved by the U.S. Food and Drug Administration. The testing method is a homogeneous time-resolved immunofluorescent assay manufactured by [employer] and performed on the Twist Kryptor Compact Plus. ? Values obtained with different assay methods or kits may be different and cannot be used interchangeably. ? Test results cannot be interpreted as absolute evidence for the presence or absence of malignant disease. Test Performed by: [facility] [address] [place] [address] Digestion Operator: Immanuel Novak M.D. Ph.D.; [facility]# [id number] Blood 05/22/2021 2:48 PM MINIATURE SET CONSTRUCTOR 05/22/2021 5:59 PM MINIATURE SET CONSTRUCTOR us Eren Cr MD LAB BLOOD ORDERABLES Final Re sult [facility] Department [place] [address] * Comprehensive metabolic panel (05/22/2021 2:48 PM MINIATURE SET CONSTRUCTOR) Sodium 140 135 - 145 mmol/L [facility] Comment:Testing performed by : [facility], [address] [place] [phone] Potassium, pl 3.7 3.3 - 4.9 mmol/L [facility] Comment:Testing performed by : [facility], [address] [place] [phone] Chloride 106 97 - 110 mmol/L [facility] Comment:Testing performed by : [facility], [address] [place] [phone] CO2 28 22 - 32 mmol/L [facility] Comment:Testing performed by : [facility], [address] [place] [phone] Anion gap 6 2 - 15 mmol/L [facility] Comment:Testing performed by : [facility], [address] [place] [phone] BUN 8 8 - 25 mg/dL [facility] Comment:Testing performed by : [facility], [address] [place] [phone] Creatinine 0.88 0.60 - 1.10 mg/dL [facility] Comment:Testing performed by : [facility], [address] [place] [phone] Glucose 131 70 - 199 mg/dL CERNER [...] was last revised 2017. Testing performed by: [place] [phone] Calcium 10.1 8.5 - 10.3 mg/dL [facility] Comment:Testing performed by : [address] [phone] Bilirubin, total 0.5 0.1 - 1.2 mg/dL [facility] Comment:Testing performed by : [address] [phone] Protein, pl 6.6 6.5 - 8.5 g/dL [facility] Comment:Testing performed by : [address] [phone] Albumin 4.2 3.5 - 5.0 g/dL [facility] Comment:Testing performed by : [address] [phone] Alk phos 82 40 - 130 Units/L [facility] Comment:Testing performed by : [address] [phone] ALT 16 7 - 45 Units/L [facility] Comment:Testing performed by : [address] [phone] AST 25 10 - 45 Units/L [facility] Comment:Testing performed by : [address] [phone] Blood 05/22/2021 2:48 PM MINIATURE SET CONSTRUCTOR 05/22/2021 2:50 PM MINIATURE SET CONSTRUCTOR us Eren Cr MD LAB BLOOD ORDERABLES Final Re sult [facility] Department [place] [address] * (ABNORMAL) CBC with auto differential (05/22/2021 2:48 PM MINIATURE SET CONSTRUCTOR) WBC 4.2 3.8 - 9.8 K/cumm [facility] Comment:Testing performed by : [facility], [address] [place] [phone] Hgb 12.4 12.1 - 15.1 g/dL [facility] Comment:Testing performed by : [address] [phone] Hct 35.9(L) 36.1 - 44.3 % [facility] Comment:Testing performed by : [facility], [address] [place] [phone] Plt 151 140 - 440 K/cumm [facility] Comment:Testing performed by : [address] [address] MPV 7.5 6.8 - 10.4 fL [facility] Comment:Testing performed by : [address] [phone] RBC 3.98 3.90 - 5.00 M/cumm [facility] Comment:Testing performed by : [facility], [address] [place] [phone] MCV 90.1 80.0 - 97.6 fL [facility] Comment:Testing performed by : [address] [address] MCH 31.1 26.7 - 33.7 pg [facility] Comment:Testing performed by : [address] [address] MCHC 34.5 32.7 - 35.5 g/dL [facility] Comment:Testing performed by : [address] [phone] RDW CV 18.1(H) 11.8 - 14.6 % [facility] Comment:Testing performed by : [facility], [address] [place] [phone] NRBC abs 0.01 0.00 - 0.01 K/cumm [facility] Comment:Testing performed by : [facility], [address] [place] [phone] Blood 05/22/2021 2:48 PM MINIATURE SET CONSTRUCTOR 05/22/2021 2:50 PM MINIATURE SET CONSTRUCTOR Result [facility] Eren Cr MD LAB BLOOD ORDERABLES Final Re sult Performing Organization Address [facility] de Phone Number [facility] Department of Laboratories [place], [place] [id number] * (ABNORMAL) Vitamin D 25 hydroxy (05/22/2021 2:48 PM MINIATURE SET CONSTRUCTOR) [facility] Vitamin D 25-OH 27(L) 30 - 80 ng/mL [facility] Blood 05/22/2021 2:48 PM MINIATURE SET CONSTRUCTOR 05/22/2021 3:08 PM MINIATURE SET CONSTRUCTOR Result [facility] Eren Cr MD LAB BLOOD ORDERABLES Final Re sult Performing Organization Address [facility] de Phone Number [facility] Department of Laboratories [place], [place] [id number] * (ABNORMAL) Phosphorus (05/22/2021 2:48 PM MINIATURE SET CONSTRUCTOR) [facility] Phosphorus, pl 2.0(L) 2.3 - 4.5 mg/dL [facility] Comment:Testing performed by : [facility], [address] [place] [phone] Blood 05/22/2021 2:48 PM MINIATURE SET CONSTRUCTOR 05/22/2021 2:50 PM MINIATURE SET CONSTRUCTOR Result [facility] Eren Cr MD LAB BLOOD ORDERABLES Final Re sult Performing Organization Address [facility] Co de Phone Number [facility] Department [place] [address] * (ABNORMAL) Lipid panel (05/22/2021 2:48 PM MINIATURE SET CONSTRUCTOR) Cholesterol 174 30 - 199 mg/dL [facility] Comment: Interpretive [...] on 2018. Triglycerides 215(H) <=149 mg/dL [facility] Comment: Interpretive [...] revised on 2018. HDL 62 >=40 mg/dL [facility] Comment: Interpretive Data Ages < or = [...] on 2018. LDL, calculated 69 <=129 mg/dL [facility] Comment: [...] revised on 2018. Non-HDL Cholesterol 112 mg/dL [facility] Comment: Interpretive [...] ratio 3 [facility] Blood 05/22/2021 2:48 PM MINIATURE SET CONSTRUCTOR 05/22/2021 3:08 PM MINIATURE SET CONSTRUCTOR us Eren Cr MD LAB BLOOD ORDERABLES Final Re sult [facility] Department [place] [address] * CT chest with contrast (05/15/2021 4:37 PM MINIATURE SET CONSTRUCTOR) Anatomical Region Laterality Modality Body N/A Computed Tomogra phy 05/15/2021 6:14 PM MINIATURE SET CONSTRUCTOR Impressions 05/15/2021 6:14 PM MINIATURE SET CONSTRUCTOR 1. ??Interval decrease in peripheral and basilar [...] Ace Almanzar MD Narrative 05/15/2021 6:14 PM MINIATURE SET CONSTRUCTOR EXAMINATION: ??Computed tomography of the chest with [...] 05/22/2021 documented in this encounter Care Teams Auto Service Mechanic Relationship Specialty Start Date End Date Julio César Briseno MD PCP - General 10/01/16 Eren Cr MD Referring Physician Medical Oncology 11/25/18 Yohana Bowen MD Radiation Oncologist Radiation Oncology 11/25/18 Sabrina Willard NP [address] [place] [address] Nurse Practitioner Medical Oncology 08/17/20 11/26/21 documented as of this encounter
--- OUTSIDE RECORDS SUMMARY | 2024-06-26 02:11 | XMS_ITS | Encounter Summary ---
Author Organization [facility] Address [address] [facility] [address] [place] [address] Phone Care Team Providers Care Campus Administrative Assistant Name Role Phone Juli oCésar Briseno MD Primary Care Provider Eren Cr MD Unavailable [phone] Yohana Bowen MD Unavailable Sabrina Willard NP Unavailable [phone] Reason for Visit * Reason Comments Follow-up Encounter Details Date Type Department Care Team (Late st Contact Info) Description 05/22/2021 11:10 AM LCPC Office Visit [facility] Surgery [address] [facility] Advanced Medicine 5th [place] [address] [place] [address] Kyra Mitchell MD PhD [address] [facility] [phone] [place] [address] Nipple discharge in female (Primary Dx) Social [...] on file Legal Sex Female 2:41 PM LCPC Gender Identity Not on file Sexual Orientation [...] months. She has no other breast complaints. DIRECTOR OF PLAYER PERSONNEL HISTORY: Patient underwent menarche at age 11. [...] 4 gram packet clotrimazole-betamethasone (LOTRISONE) cream coenzyme [id number] E (CO Q-10, WITH VIT E,) 100-5 [...] This note is dictated and transcribed by [employer]. Neurodiagnostic Technician variances may occur. Despite proofreading, typographical errors may occur. Cc: Julio César Briseno MD documented in this encounter Plan of [...] documented as of this encounter Care Teams Campus Administrative Assistant Relationship Specialty Start Date End Date Julio César Briseno MD PCP - General 10/01/16 Eren Cr MD Referring Physician Medical Oncology 11/25/18 Yohana Bowen MD Radiation Oncologist Radiation Oncology 11/25/18 Sabrina Willard NP [address] [place] [address] Nurse Practitioner Medical Oncology 08/17/20 11/26/21 documented as of this encounter
--- OUTSIDE RECORDS SUMMARY | 2024-06-26 02:11 | XMS_ITS | Encounter Summary ---
Author Organization [facility] Address [address] [place] [address] Phone Care Team Providers Care Parts Room Associate Name Role Phone Julio César Briseno MD Primary Care Provider Eren Cr MD Unavailable Yohana Bowen MD Unavailable Sabrina Willard NP Unavailable [phone] Encounter Details Date Type Department Care Team (Late st Contact Info) Description 06/13/2021 Orders Only [facility] Oncology [address] [place] [address] Eren Cr MD [address] [address] [place] [address] Social History Tobacco Use Types Packs/Day Years [...] file Legal 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 Gender Identity Not on file Sexual Orientation Straight 02/19/2021 9: 29 AM CDT Occupation Industry Job Start Date Job End Date retired Not on file Not on file Not on file documented as of this encounter Plan of Treatment Not on file documented as of this encounter Visit Diagnoses Not on filedocumented in this encounter Care Teams Parts Room Associate Relationship Specialty Start Date End Date Julio César Briseno MD PCP - General 10/01/16 Eren Cr MD Referring Physician Medical Oncology 11/25/18 Yohana Bowen MD Radiation Oncologist Radiation Oncology 11/25/18 Sabrina Willard NP [address] [place] [address] Nurse Practitioner Medical Oncology 08/17/20 11/26/21 documented as of this encounter
--- OUTSIDE RECORDS SUMMARY | 2024-06-26 02:11 | XMS_ITS | Encounter Summary ---
Author Organization [facility] Address [address] [place] [address] Phone Care Team Providers Care Portable Track Line Marker Name Role Phone Julio César Briseno MD Primary Care Provider [phone] Eren Cr MD Unavailable [phone] Yohana Bowen MD Unavailable Sabrina Willard NP Unavailable [phone] Reason for Referral * MRI/CAT/PET Scan (Routine) - Closed Specialty Diagnoses / Procedures Referred By Contac t Referred To Contact Radiology Diagnoses Neuroendocrine carcinoma (HCC) Malignant neoplasm metastatic to liver (HCC) Procedures CT chest with contrast Eren Cr MD [facility] [place] [address] Phone: tel: fax: [address] [address] Referral ID Status Reason Start Date Expiration Date Visits Re quested Visits Authorized [id number] Closed 02/27/2021 03/29/2022 1 1 * MRI/CAT/PET Scan (Routine) - Closed Specialty Diagnoses / Procedures Referred By Contac t Referred To Contact Radiology Diagnoses Neuroendocrine carcinoma (HCC) Malignant neoplasm metastatic to liver (HCC) Procedures MRI Abdomen Pelvis W WO Contrast Eren Cr MD [address] [facility] [address] 7A-C [facility] [place] [address] Phone: tel: fax: [address] [address] Referral ID Status Reason Start Date Expiration Date Visits Re quested Visits Authorized [id number] Closed 02/27/2021 03/29/2022 1 1 Reason for Visit * Episode Based Medications (Routine) - Authorized Specialty Diagnoses / Procedures Referred By Contellen t Referred To Contact Oncology Diagnoses Neuroendocrine carcinoma (HCC) Malignant neoplasm metastatic to liver (HCC) Procedures [place] OCTREOTIDE INJECTION, DEPOT Octreotide 28 Day Cycles - Carcinoid Eren Cr MD 49[address] [facility] 7A-C [facility] [place] [address] Phone: tel: fax: [address] [address] Phone: tel: fax: Referral ID Status Reason Start Date Expiration Date V isits Requested Visits Authorized [id number] Authorized 11/28/2017 02/05/2025 1 150 Encounter Details Date Type Department Care Team (Late st Contact Info) Description 02/27/2021 9:00 AM CDT Office Visit [facility] Oncology [address] 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 Greyson Reeves. Biopsy revealed [...] (Planned for 02/27/2021) INTERVAL HISTORY Ms. La Chung is a [...] again received hydration last week at the [facility] Overall, she is feeling well. She [...] mg capsule, Take 1 tablet by mouth early childhood services coordinator before breakfast, Disp: , Rfl: ??? cholecalciferol (VITAMIN D-3) 2,000 unit capsule, Take 1 capsule (2,000 Units total) by mouth daily (Patient taking differently: Take 2,000 Units by mouth daily ), Disp: 30 capsule, Rfl: 2 ??? clotrimazole-betamethasone (LOTRISONE) cream, clotrimazole-betamethasone 1 %-0.05 % topical cream APPLY EXTERNALLY TO ABDOMEN TWICE DAILY NEEDED, Disp: , Rfl: ??? coenzyme G23-[id number] E (CO Q-10, WITH VIT E,) 100-5 mg-unit capsule, Take by mouth early childhood services coordinator before breakfast , Disp: , Rfl: ??? [...] taking differently: Take 30 mg by mouth early childhood services coordinator before breakfast ), Disp: 30 capsule, Rfl: [...] per tablet, Take 0.5 tablets by mouth early childhood services coordinator before breakfast decrease dosage to 0.5 tablet [...] developed and its performance characteristics determined by [facility] in a manner consistent with CLIA requirements. This test has not been cleared or approved by the U.S. Food and Drug Administration. The testing method is a homogeneous time-resolved immunofluorescent assay manufactured by [employer] and performed on the Brille24 Kryptor Compact Plus. ? Values obtained with different assay methods or kits may be different and cannot be used interchangeably. ? Test results cannot be interpreted as absolute evidence for the presence or absence of malignant disease. Test Performed by: [address] [address] Mincemeat Maker: Immanuel Novak M.D. Ph.D.; CLIA# [id number] Blood 03/27/2021 2:25 PM CDT 03/27/2021 4:10 PM CDT us Eren Cr MD LAB BLOOD ORDERABLES Final Re sult [facility] Department [place] [address] * (ABNORMAL) Comprehensive metabolic panel (03/27/2021 2:25 PM CDT) Sodium 140 135 - 145 mmol/L [facility] Comment:Testing performed by : [facility], [address] [place] [phone] Potassium, pl 3.6 3.3 - 4.9 mmol/L [facility] Comment:Testing performed by : [address] [address] Chloride 102 97 - 110 mmol/L [facility] Comment:Testing performed by : [facility], [address] [place] [phone] CO2 27 22 - 32 mmol/L [facility] Comment:Testing performed by : [address] [address] Anion gap 11 2 - 15 mmol/L [facility] Comment:Testing performed by : [address] [address] BUN 23 8 - 25 mg/dL [facility] Comment:Testing performed by : [facility], [address] [place] [phone] Creatinine 1.00 0.60 - 1.10 mg/dL [facility] Comment:Testing performed by : [address] [phone] Glucose 177 70 - 199 mg/dL [facility] Comment: Interpretive Data Fasting glucose [...] was last revised 2017. Testing performed by: [address] [phone] Calcium 10.9(H) 8.5 - 10.3 mg/dL [facility] Comment:Testing performed by : [facility], [address] [place] [phone] Bilirubin, total 0.4 0.1 - 1.2 mg/dL [facility]ON [facility] Comment:Testing performed by : [facility], [address] [place] [phone] Protein, pl 6.9 6.5 - 8.5 g/dL J[facility]ON BLACK Comment:Testing performed by : [facility], [address] [place] [phone] Albumin 4.1 3.5 - 5.0 g/dL [facility] Comment:Testing performed by : [facility], [address] [place] [phone] Alk phos 131(H) 40 - 130 Units/L [facility]ON [facility] Comment:Testing performed by : [facility], [address] [place] [phone] ALT 25 7 - 45 Units/L [facility]ON [facility] Comment:Testing performed by : [facility], [address] [place] [phone] AST 30 10 - 45 Units/L [facility]ON [facility] Comment:Testing performed by : [facility], [address] [place] [phone] Blood 03/27/2021 2:25 PM CDT 03/27/2021 2:30 PM CDT us Eren Cr MD LAB BLOOD ORDERABLES Final Re sult J[facility]ON [facility] Department [place] [address] * (ABNORMAL) CBC with auto differential (03/27/2021 2:25 PM CDT) WBC 6.6 3.8 - 9.8 K/cumm [facility]ACK Comment:Testing performed by : [facility], [address] [place] [phone] Hgb 11.8(L) 12.1 - 15.1 g/dL [facility]ON [facility] Comment:Testing performed by : [facility], [address] [place] [phone] Hct 35.6(L) 36.1 - 44.3 % J[facility]ON [facility] Comment:Testing performed by : [facility], [address] [place], [place] [phone] Plt 199 140 - 440 K/cumm J[facility]ON BLACK Comment:Testing performed by : [facility], [address] [place], [place] [phone] MPV 8.4 6.8 - 10.4 fL [facility]ON BLACK Comment:Testing performed by : [facility], [address] [place], [place] [phone] RBC 4.08 3.90 - 5.00 M/cumm J[facility]ON [facility]ACK Comment:Testing performed by : [facility], [address] [place], [place] [phone] MCV 87.3 80.0 - 97.6 fL [facility] Comment:Testing performed by : [facility], [address] [place], [place] [phone] MCH 29.0 26.7 - 33.7 pg J[facility]ON [facility] Comment:Testing performed by : [facility], [address] [place], [place] [phone] MCHC 33.2 32.7 - 35.5 g/dL J[facility]ON [facility] Comment:Testing performed by : [facility], [address] [place], [place] [phone] RDW CV 14.7(H) 11.8 - 14.6 % JASON [facility] Comment:Testing performed by : [address] [phone] NRBC abs 0.01 0.00 - 0.01 K/cumm JASON [facility] Comment:Testing performed by : [facility], [address] [place] [phone] Blood 03/27/2021 2:25 PM CDT 03/27/2021 2:30 PM CDT us Eren Cr MD LAB BLOOD ORDERABLES Final Re sult [facility] Department [place] [address] * Vitamin D 25 hydroxy (03/27/2021 2:25 PM CDT) Vitamin D 25-OH 31 30 - 80 ng/mL [facility] Blood 03/27/2021 2:25 PM CDT 03/27/2021 2:54 PM CDT Eren Cr MD LAB BLOOD ORDERABLES Final Re sult Performing Organization Address [facility] Co de Phone Number [facility] Department [place] [address] * Phosphorus (03/27/2021 2:25 PM CDT) Pathologist [facility] Phosphorus, pl 2.8 2.3 - 4.5 mg/dL [facility] Comment:Testing performed by : [facility], [address] [place] [phone] Blood 03/27/2021 2:25 PM CDT 03/27/2021 2:30 PM CDT Eren Cr MD LAB BLOOD ORDERABLES Final Re sult Performing Organization Address [facility] de Phone Number [facility] Department [place] [address] * CT chest with contrast (03/23/2021 7:01 [...] and agrees with it. Electronically signed by: oLretta English M.D. Eren Cr MD IMG MRI [...] 03/27/2021 documented in this encounter Care Teams Portable Track Line Marker Relationship Specialty Start Date End Date Julio César Briseno MD PCP - General 10/01/16 Eren Cr MD Referring Physician Medical Oncology 11/25/18 Yohana Bowen MD Radiation Oncologist Radiation Oncology 11/25/18 Sabrina Willard NP [address] [place] [address] Nurse Practitioner Medical Oncology 08/17/20 11/26/21 documented as of this encounter
--- OUTSIDE RECORDS SUMMARY | 2024-06-26 02:11 | XMS_ITS | Encounter Summary ---
Author Organization [facility] Healthcare Address [address] [place] [address] Care Team Providers Care Trailer Mechanic Name Role Phone Julio César Briseno MD Primary Care Provider [phone] Eren Cr MD Unavailable [phone] Yohana Bowen MD Unavailable Sabrina Willard NP Unavailable [phone] Reason for Referral * MRI/CAT/PET Scan (Routine) - Closed Specialty Diagnoses / Procedures Referred By Evelyne bowman Referred To Contact Radiology Diagnoses Neuroendocrine carcinoma (HCC) Bone metastasis Malignant neoplasm metastatic to liver (HCC) Procedures CT chest with contrast Eren Cr MD [facility] [place] [address] Phone: tel: fax: [address] [address] Referral ID Status Reason Start Date Expiration Date Visits Re quested Visits Authorized [id number] Closed 04/24/2021 05/24/2022 1 1 TRUCK DRIVER Reason for Visit * MRI/CAT/PET Scan (Routine) - Closed Specialty Diagnoses / Procedures [facility] Referred To Contact Radiology Diagnoses Neuroendocrine carcinoma (HCC) Bone metastasis Malignant neoplasm metastatic to liver (HCC) Procedures CT chest with contrast Eren Cr MD [address] [facility] [address] [place] [address] Phone: tel: fax: [facility] [address] [facility] [place] [address] Referral ID Status Reason Start Date Expiration Date Visits Re quested Visits Authorized [id number] Closed 04/24/2021 05/24/2022 1 1 Encounter Details Date Type Department Care Team (Latest Contact Info) Description 05/15/2021 3:40 PM FARM TRUCK DRIVER - 05/15/2021 11:59 PM FARM TRUCK DRIVER Hospital Encounter [facility] [address] [place] [address] Eren Cr MD [address] [facility] [address] [place] [address] Neuroendocrine carcinoma (CMS/HCC) (HCC); Bone metastasis (CMS/HCC) [...] on file Legal Sex Female 2:41 PM FARM TRUCK DRIVER Gender Identity Not on file Sexual [...] capsuleIndications :supplement Take 1 tablet by mouth flight kitchen manager before breakfast 07/04/2016 4 cholecalciferol (VITAMIN D-3) 2,000 unit capsule Take 1 capsule (2,000 Units total) by mouth daily 30 capsule 2 04/25/2019 3 cholestyramine (QUESTRAN) 4 gram packet Take 1 packet by mouth 3 (three) times a day with meals 270 packet 3 09/04/2019 2 clotrimazole-betam ethasone (LOTRISONE) cream Apply 1 Application topically daily as needed (rash) 4 coenzyme K76-nrkvtij E 100-5 mg-unit capsuleIndications :supplement Take 1 tablet by mouth flight kitchen manager before breakfast 4 denosumab (XGEVA) 120 mg/1.7 [...] Read Routine (OP Routine) 05/15/2021 4:37 PM FARM TRUCK DRIVER Neuroendocrine carcinoma (CMS/HCC) (HCC) Bone metastasis (CMS/HCC) (HCC) Malignant neoplasm metastatic to liver (CMS/HCC) (HCC) documented in this encounter Results * CT chest with contrast (05/15/2021 4:37 PM FARM TRUCK DRIVER) Anatomical Region Laterality Modality Body N/A Computed Tomogra phy 05/15/2021 6:14 PM FARM TRUCK DRIVER Impressions 05/15/2021 6:14 PM FARM TRUCK DRIVER 1. ??Interval decrease in peripheral and basilar [...] Ace Almanzar MD Narrative 05/15/2021 6:14 PM FARM TRUCK DRIVER EXAMINATION: ??Computed tomography of the chest with [...] 1 dose Contrast Given 05/15/2021 4:25 PM FARM TRUCK DRIVER 94 mL documented in this encounter Orders Medications Ordered That Brett ht Not Have Been Administered Count Last Ordered Date First Ordered Date ioversoL (OPTIRAY 350) syrin ge syringe 100 mL 1 05/15/2021 documented in this encounter Care Teams Trailer Mechanic Relationship Specialty Start Date End Date Julio César Briseno MD PCP - General 10/01/16 Eren Cr MD Referring Physician Medical Oncology 11/25/18 Yohana Bowen MD Radiation Oncologist Radiation Oncology 11/25/18 Sabrina Willard NP [address] [place] [address] Nurse Practitioner Medical Oncology 08/17/20 11/26/21 documented as of this encounter
--- OUTSIDE RECORDS SUMMARY | 2024-06-26 02:11 | XMS_ITS | Encounter Summary ---
Author Organization [facility] Healthcare Address [address] [place] [address] Care Team Providers Care Online Health And Fitness Coach Name Role Phone Julio César Briseno MD Primary Care Provider [phone] Eren Cr MD Unavailable [phone] Yohana Bowen MD Unavailable Sabrina Willard NP Unavailable Reason for Referral * MRI/CAT/PET Scan (Routine) - Closed Specialty Diagnoses / Procedures Referred By Evelyne bowman Referred To Contact Radiology Diagnoses Neuroendocrine carcinoma (HCC) Malignant neoplasm metastatic to liver (HCC) Procedures MRI Abdomen Pelvis W WO Contrast Eren Cr MD [facility] [place] [address] Phone: tel: fax: [address] [address] Referral ID Status Reason Start Date Expiration Date Visits Re quested Visits Authorized [id number] Closed 02/27/2021 03/29/2022 1 1 Reason for Visit * MRI/CAT/PET Scan (Routine) - Closed Specialty Diagnoses / Procedures Referred By Contac Referred To Contact Radiology Diagnoses Neuroendocrine carcinoma (HCC) Malignant neoplasm metastatic to liver (HCC) Procedures MRI Abdomen Pelvis W WO Contrast Eren Cr MD [address] [facility] 7A-C [address] [place] [address] Phone: tel: fax: [facility] 1 [facility] [place] [address] Referral ID Status Reason Start Date Expiration Date Visits Re quested Visits Authorized [id number] Closed 02/27/2021 03/29/2022 1 1 Encounter Details Date Type Department Care Team (Latest Contact Info) Description 03/23/2021 2:19 PM CDT - 03/23/2021 11:59 PM CDT Hospital Encounter [facility]iology [facility] [address] [place] [address] Eren Cr MD [address] [facility] [address] [place] [address] Neuroendocrine carcinoma (CMS/HCC) (HCC); Malignant neoplasm metastatic [...] on file Legal Sex Female 2:41 PM DIETETIC TECHNICIAN Gender Identity Not on file Sexual [...] mouth early childhood education worker before breakfast 07/04/2016 4 cholecalciferol (VITAMIN D-3) 2,000 unit capsule Take 1 capsule (2,000 Units total) by mouth daily 30 capsule 2 04/25/2019 3 cholestyramine (QUESTRAN) 4 gram packet Take 1 packet by mouth 3 (three) times a day with meals 270 packet 3 09/04/2019 2 clotrimazole-betam ethasone (LOTRISONE) cream Apply 1 Application topically daily as needed (rash) 4 coenzyme O24-gcafonu E 100-5 mg-unit capsuleIndications :supplement Take 1 tablet by mouth early childhood education worker before breakfast 4 denosumab (XGEVA) 120 [...] 03/23/2021 documented in this encounter Care Teams Online Health And Fitness Coach Relationship Specialty Start Date End Date Julio César Briseno MD PCP - General 10/01/16 Eren Cr MD Referring Physician Medical Oncology 11/25/18 Yohana Bowen MD Radiation Oncologist Radiation Oncology 11/25/18 Sabrina Willard NP [address] [place] [address] Nurse Practitioner Medical Oncology 08/17/20 11/26/21 documented as of this encounter
--- OUTSIDE RECORDS SUMMARY | 2024-06-26 02:11 | XMS_ITS | Encounter Summary ---
Author Organization [facility] Address [address] [place] [address] Phone Care Team Providers Care Home Economics Expert Name Role Phone Julio César Briseno MD Primary Care Provider Eren Cr MD Unavailable [phone] Yohana Bowen MD Unavailable Sabrina Willard NP Unavailable [phone] Reason for Visit * Reason Onset Date Comments CT scan results 05/17/2021 Encounter Details Date Type Department Care Team (Late st Contact Info) Description 05/17/2021 Telephone [facility] Oncology [address] [facility] 7th [place] [address] [place] [address] Eren Cr MD [address] [facility] [address] [place] [address] CT scan results Social History Tobacco Use [...] file Legal Sex Female 2:41 PM TOP STEEP TENDER Gender Identity Not on file Sexual [...] her visit with Dr. Cr as scheduled. STEEP TENDER documented in this encounter Plan of Treatment Not on file documented as of this encounter Visit Diagnoses Not on filedocumented in this encounter Care Teams Home Economics Expert Relationship Specialty Start Date End Date Julio César Briseno MD PCP - General 10/01/16 Eren Cr MD Referring Physician Medical Oncology 11/25/18 Yohana Bowen MD Radiation Oncologist Radiation Oncology 11/25/18 Sabrina Willard NP [address] [place] [address] Nurse Practitioner Medical Oncology 08/17/20 11/26/21 documented as of this encounter
--- OUTSIDE RECORDS SUMMARY | 2024-06-26 02:11 | XMS_ITS | Encounter Summary ---
Author Organization [facility] Healthcare Address [address] [place] [address] Care Team Providers Care Cell Operation Supervisor Name Role Phone Julio César Briseno MD Primary Care Provider [phone] Eren Cr MD Unavailable Yohana Bowen MD Unavailable Sabrina Willard NP Unavailable [phone] Encounter Details Date Type Department Care Team (Latest Contact Info) Description 03/24/2021 Telephone Oncology Eren Cr MD [address] [facility] [address] [place] [address] Social History Tobacco Use Types [...] file Legal Sex Female 2:41 PM RECOVERY AGENT Gender Identity Not on file Sexual Orientation Straight 02/19/2021 9: 29 AM CDT Occupation Industry Job Start Date Job End Date retired Not on file Not on file Not on file documented as of this encounter Miscellaneous Notes * Telephone Encounter - Eren Cr Jr., MD - 03/24/2021 5:05 PM CDT Called patient again and discussed that if the PHARMACEUTICAL DEVELOPMENT TECHNICIAN who assessed her at Urgent Care feels [...] on filedocumented in this encounter Care Teams Cell Operation Supervisor Relationship Specialty Start Date End Date Julio César Briseno MD PCP - General 10/01/16 Eren Cr MD Referring Physician Medical Oncology 11/25/18 Yohana Bowen MD Radiation Oncologist Radiation Oncology 11/25/18 Sabrina Willard NP [address] [place] [address] Nurse Practitioner Medical Oncology 08/17/20 11/26/21 documented as of this encounter
--- OUTSIDE RECORDS SUMMARY | 2024-06-26 02:11 | XMS_ITS | Encounter Summary ---
Author Organization [facility] Address [address] [place] [address] Phone Care Team Providers Care Cut Out Press Operator Name Role Phone Julio César Briseno MD Primary Care Provider [phone] Eren Cr MD Unavailable [phone] Yohana Bowen MD Unavailable Sabrina Willard NP Unavailable [phone] 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) Procedures [place] OCTREOTIDE INJECTION, DEPOT Octreotide 28 Day Cycles - Carcinoid Eren Cr MD [address] [facility] [address] [place] [address] Phone: tel: fax: [facility] [address] [address] Phone: tel: fax: Referral ID Status Reason Start Date Expiration Date V isits Requested Visits Authorized [id number] Authorized 11/28/2017 02/05/2025 1 150 Encounter Details Date Type Department Care Team (Late st Contact Info) Description 05/22/2021 4:00 PM LEATHER CLEANER Infusion [facility] Oncology [address] [facility] 7th [place] [address] Neuroendocrine carcinoma (CMS/HCC) (HCC) (Primary Dx); Malignant [...] on file Legal Sex Female 2:41 PM LEATHER CLEANER Gender Identity Not on file Sexual Orientation Straight 02/19/2021 9: 29 AM CDT Occupation Industry Job Start Date Job End Date retired Not on file Not on file Not on file documented as of this encounter Nursing Notes * Susana Begum - 05/22/2021 4:00 PM CST Oncology Nursing Note [facility] La Chung is a 70 [...] Ambulatory Accompanied by: Self Discharged To: Home HER CLEANER documented in this encounter Plan of [...] (HCC),Neuroendocrine carcinoma (HCC) Given 05/22/2021 5:15 PM LEATHER CLEANER 30 mg Left Dorsogluteal/Butt ock documented in this encounter Orders Medications Ordered That Brett ht Not Have Been Administered Count Last Ordered Date First Ordered Date octreotide LAR (SandoSTATIN LAR) extended release intramuscular injection 30 mg 1 05/22/2021 Nursing Count Last Ordered Date First Orde red Date ONCBCN NURSING COMMUNICATION [id number] 1 05/22 Appointment Requests Count Last Ordered Date Fi rst Ordered Date ONCBCN INJECTION APPOINTMENT REQUEST 1 05/08 documented in this encounter Care Teams Cut Out Press Operator Relationship Specialty Start Date End Date Julio César Briseno MD PCP - General 10/01/16 Eren Cr MD Referring Physician Medical Oncology 11/25/18 Yohana Bowen MD Radiation Oncologist Radiation Oncology 11/25/18 Sabrina Willard NP [address] [place] [address] Nurse Practitioner Medical Oncology 08/17/20 11/26/21 documented as of this encounter
--- OUTSIDE RECORDS SUMMARY | 2024-06-26 02:11 | XMS_ITS | Encounter Summary ---
Author Organization [facility] Address [address] [place] [address] Phone Care Team Providers Care Casino Attendant Name Role Phone Julio César Briseno MD Primary Care Provider [phone] Eren Cr MD Unavailable [phone] Yohana Bowen MD Unavailable Sabrina Willard NP Unavailable [phone] 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) Procedures [place] OCTREOTIDE INJECTION, DEPOT Octreotide 28 Day Cycles - Carcinoid Eren Cr MD [address] [facility] [address] [place] [address] Phone: tel: fax: [facility] [address] [address] Phone: tel: fax: Referral ID Status Reason Start Date Expiration Date V isits Requested Visits Authorized [id number] Authorized 11/28/2017 02/05/2025 1 150 Encounter Details Date Type Department Care Team (Late st Contact Info) Description 03/27/2021 2:30 PM CDT Office Visit [facility] Oncology [address] [facility] 7th [place] [address] [place] [address] Eren Cr MD [address] [facility] [facility] [address] [place] [address] Neuro-endocrine carcinoma (CMS/HCC) (HCC) (Primary Dx); Bone [...] on file Legal Sex Female 2:41 PM FRUIT COORDINATOR Gender Identity Not on file Sexual [...] time, she also underwent right colectomy in [facility] [place] by Dr. Greyson Reeves. Biopsy [...] ??? JOINT REPLACEMENT Left 2014 ? ? WI REMOVAL OF TONSILS,<12 Y/O Tonsillectomy - (Added by TW Conv) ??? WI TOTAL ABDOM HYSTERECTOMY Hysterectomy - (Added by [...] mg capsule, Take 1 tablet by mouth endocrinologist before breakfast, Disp: , Rfl: ??? cholecalciferol (VITAMIN D-3) 2,000 unit capsule, Take 1 capsule (2,000 Units total) by mouth daily (Patient taking differently: Take 2,000 Units by mouth daily ), Disp: 30 capsule, Rfl: 2 ??? clotrimazole-betamethasone (LOTRISONE) cream, clotrimazole-betamethasone 1 %-0.05 % topical cream APPLY EXTERNALLY TO ABDOMEN TWICE DAILY NEEDED, Disp: , Rfl: ??? coenzyme [id number] E (CO Q-10, WITH VIT E,) 100-5 mg-unit capsule, Take by mouth endocrinologist before breakfast , Disp: , Rfl: ??? [...] taking differently: Take 30 mg by mouth endocrinologist before breakfast ), Disp: 30 capsule, Rfl: [...] per tablet, Take 0.5 tablets by mouth endocrinologist before breakfast decrease dosage to 0.5 tablet daily 05/14/[address] Briseno at office visit., Disp: , Rfl: ??? ondansetron (ZOFRAN) 8 mg tablet, Take 1 tablet (8 mg total) by mouth every 8 (eight) hours as needed for nausea or vomiting, Disp: 20 tablet, Rfl: 3 ??? ostomy supplies misc, Patient has colostomy and needs Cavilon 3M skin barrier film to manage.,Disp: 20 each, Rfl: 6 ??? oxyCODONE (ROXICODONE) [...] Chromogranin A (04/24/2021 2:54 PM CDT) Pathologist [facility] Chromogranin A 1125(H) <93 ng/mL [facility] Comment: Impaired renal or hepatic function or treatment with proton pump inhibitors may result in artifactual elevations of Chromogranin A. ADDITIONAL INFORMATION This test was developed and its performance characteristics determined by [facility] in a manner consistent with CLIA requirements. This test has not been cleared or approved by the U.S. Food and Drug Administration. The testing method is a homogeneous time-resolved immunofluorescent assay manufactured by [employer] and performed on the Tango Card Kryptor Compact Plus. ? Values obtained with different assay methods or kits may be different and cannot be used interchangeably. ? Test results cannot be interpreted as absolute evidence for the presence or absence of malignant disease. Test Performed by: [address] [address] Cosmetic Consultant: Immanuel Novak M.D. Ph.D.; CLIA# [id number] Blood 04/24/2021 2:54 PM CDT 04/24/2021 4:52 PM CDT us Eren Cr MD LAB BLOOD ORDERABLES Final Re sult [facility] Department [place] [address] * (ABNORMAL) Comprehensive metabolic panel (04/24/2021 2:54 PM CDT) Sodium 139 135 - 145 mmol/L [facility] Comment:Testing performed by : [facility], [address] [place] [phone] Potassium, pl 4.2 3.3 - 4.9 mmol/L [facility] Comment:Testing performed by : [facility], [address] [place] [phone] Chloride 106 97 - 110 mmol/L [facility] Comment:Testing performed by : [facility], [address] [place] [phone] CO2 26 22 - 32 mmol/L [facility] Comment:Testing performed by : [facility], [address] [place] [phone] Anion gap 7 2 - 15 mmol/L [facility] Comment:Testing performed by : [facility], [address] [place] [phone] BUN 14 8 - 25 mg/dL [facility] Comment:Testing performed by : [facility], [address] [place] [phone] Creatinine 0.91 0.60 - 1.10 mg/dL [facility] Comment:Testing performed by : [facility], [address] [place] [phone] Glucose 135 70 - 199 mg/dL [facility] Comment: Interpretive Data Fasting glucose >/= [...] Testing performed by: [facility], [address] [place] [phone] Calcium 10.4(H) 8.5 - 10.3 mg/dL [facility] Comment:Testing performed by : [facility], [address] [place] [phone] Bilirubin, total 0.5 0.1 - 1.2 mg/dL [facility] Comment:Testing performed by : [facility], [address] [place] [phone] Protein, pl 7.2 6.5 - 8.5 g/dL [facility] Comment:Testing performed by : [facility], [address] [place] [phone] Albumin 4.4 3.5 - 5.0 g/dL [facility] Comment:Testing performed by : [facility], [address] [place] [phone] Alk phos 107 40 - 130 Units/L [facility] Comment:Testing performed by : [address] [phone] ALT 20 7 - 45 Units/L [facility] Comment:Testing performed by : [facility], [address] [place] [phone] AST 24 10 - 45 Units/L [facility] Comment:Testing performed by : [address] [address] Blood 04/24/2021 2:54 PM CDT 04/24/2021 2:55 PM CDT us Eren Cr MD LAB BLOOD ORDERABLES Final Re sult [facility] Department [place] [address] * (ABNORMAL) CBC with auto differential (04/24/2021 2:54 PM CDT) WBC 4.7 3.8 - 9.8 K/cumm [facility] Comment:Testing performed by : [facility], [address] [place], [place] [id number] Hgb 12.7 12.1 - 15.1 g/dL [facility] Comment:Testing performed by : [facility], [address] [place], [place] [id number] Hct 37.9 36.1 - 44.3 % [facility] Comment:Testing performed by : [facility], [address] [place], [place] [id number] Plt 182 140 - 440 K/cumm [facility] Comment:Testing performed by : [place] [address] MPV 7.7 6.8 - 10.4 fL [facility] Comment:Testing performed by : [place] [address] RBC 4.15 3.90 - 5.00 M/cumm [facility] Comment:Testing performed by : [facility], [address] [place], [place] [id number] MCV 91.4 80.0 - 97.6 fL [facility] Comment:Testing performed by : [place] [id number] MCH 30.6 26.7 - 33.7 pg [facility] Comment:Testing performed by : [place] [address] MCHC 33.4 32.7 - 35.5 g/dL [facility] Comment:Testing performed by : [facility], [address] [place], [place] [id number] RDW CV 20.2(H) 11.8 - 14.6 % [facility] Comment:Testing performed by : [place] [address] NRBC abs 0.00 0.00 - 0.01 K/cumm [facility] Comment:Testing performed by : [place] [id number] Blood 04/24/2021 2:54 PM CDT 04/24/2021 2:55 PM CDT Eren Cr MD LAB BLOOD ORDERABLES Final Re sult Performing Organization Address [facility] Co de Phone Number [facility] [place] [address] * Vitamin D 25 hydroxy (04/24/2021 2:54 PM CDT) Vitamin D 25-OH 30 30 - 80 ng/mL [facility] Blood 04/24/2021 2:54 PM CDT 04/24/2021 3:28 PM CDT Eren Cr MD LAB BLOOD ORDERABLES Final Re sult Performing Organization Address [facility] [place] [address] * Phosphorus (04/24/2021 2:54 PM CDT) Pathologist [facility] Phosphorus, pl 2.9 2.3 - 4.5 mg/dL [facility] Comment:Testing performed by : [facility], [address] [place] [phone] Blood 04/24/2021 2:54 PM CDT 04/24/2021 2:55 PM CDT Result [facility] Eren Cr MD LAB BLOOD ORDERABLES Final Re sult Performing Organization Address [facility] Co de Phone Number [place], [place] [id number] * (ABNORMAL) Lipid panel (04/24/2021 2:54 PM CDT) [facility] Cholesterol 184 30 - 199 mg/dL [facility] [...] on 2018. Triglycerides 308(H) <=149 mg/dL [facility] Comment: Interpretive [...] on 2018. HDL 65 >=40 mg/dL [facility] Comment: Interpretive [...] on 2018. LDL, calculated 57 <=129 mg/dL [facility] Comment: Interpretive Data Ages < [...] revised on 2018. Non-HDL Cholesterol 119 mg/dL [facility] Comment: Interpretive [...] ratio 3 [facility] Blood 04/24/2021 2:54 PM CDT 04/24/2021 3:28 PM CDT us Eren Cr MD LAB BLOOD ORDERABLES Final Re sult [facility] Department [place] [address] documented in this encounter [...] 04/24/2021 documented in this encounter Care Teams Casino Attendant Relationship Specialty Start Date End Date Julio César Briseno MD PCP - General 10/01/16 Eren Cr MD Referring Physician Medical Oncology 11/25/18 Yohana Bowen MD Radiation Oncologist Radiation Oncology 11/25/18 Sabrina Willard NP [address] [place] [address] Nurse Practitioner Medical Oncology 08/17/20 11/26/21 documented as of this encounter
--- OUTSIDE RECORDS SUMMARY | 2024-06-26 02:11 | XMS_ITS | Encounter Summary ---
Author Organization [facility] Address [address] [place] [address] Phone Care Team Providers Care Ruby On Rails Web Developer Name Role Phone Julio César Briseno MD Primary Care Provider [phone] Eren Cr MD Unavailable [phone] Yohana Bowen MD Unavailable Sabrina Willard NP Unavailable Encounter Details Date Type Department Care Team (Late st Contact Info) Description 03/08/2021 Orders Only [facility] Oncology [address] [facility] 7th [place] [address] [place] [address] Eren Cr MD [facility] [address] [place] [address] Neuroendocrine carcinoma (CMS/HCC) (HCC) (Primary Dx); Dehydration; [...] on file 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 Gender Identity Not on file Sexual [...] Sodium 137 135 - 145 mmol/L [facility] [place] [facility] Comment:Testing performed by : [facility], [address] [place] [phone] Potassium, pl 4.2 3.3 - 4.9 mmol/L [facility] [place] Comment:Testing performed by : [address] [address] Chloride 105 97 - 110 mmol/L [facility] [place] [facility] Comment:Testing performed by : [facility], [address] [place] [phone] CO2 20(L) 22 - 32 mmol/L [facility] [place] [facility] Comment:Testing performed by : [facility], [address] [place] [phone] Anion gap 12 2 - 15 mmol/L [facility] [place] [facility] Comment:Testing performed by : [address] [address] BUN 16 8 - 25 mg/dL [facility] [place] [facility] Comment:Testing performed by : [facility], [address] [place] [address] Creatinine 1.14(H) 0.60 - 1.10 mg/dL [facility] [place] [facility] Comment:Testing performed by : [address] [address] Glucose 227(H) 70 - 199 mg/dL [facility] [place] [facility] Comment: Interpretive Data Fasting glucose >/= [...] 2017. Testing performed by: [facility], [address] [place] [phone] Calcium 10.0 8.5 - 10.3 mg/dL [facility] [place] [facility] Comment:Testing performed by : [facility], [address] [place] [address] Bilirubin, total 0.3 0.1 - 1.2 mg/dL [facility] Comment:Testing performed by : [address] [address] Protein, pl 6.5 6.5 - 8.5 g/dL [facility] Comment:Testing performed by : [address] [address] Albumin 3.7 3.5 - 5.0 g/dL [facility] Comment:Testing performed by : [facility], [address] [place] [address] Alk phos 121 40 - 130 Units/L [facility] Comment:Testing performed by : [address] [address] ALT 31 7 - 45 Units/L [facility] Comment:Testing performed by : [address] [address] AST 44 10 - 45 Units/L [facility] Comment:Testing performed by : [facility], [address] [place] [address] Blood 03/09/2021 7:20 AM CDT 03/09/2021 7:27 AM CDT us Eren Cr MD LAB BLOOD ORDERABLES Final Re sult [facility] [place] [address] * (ABNORMAL) CBC with auto differential (03/09/2021 7:20 AM CDT) WBC 2.3(L) 3.8 - 9.8 K/cumm [facility] Comment:Testing performed by : [facility], [address] [place], [place] [phone] Hgb 11.8(L) 12.1 - 15.1 g/dL [facility] Comment:Testing performed by : [facility], [address] [place], [place] [phone] Hct 35.3(L) 36.1 - 44.3 % [facility] Comment:Testing performed by : [facility], [address] [place], [place] [phone] Plt 78(L) 140 - 440 K/cumm [facility] Comment:Testing performed by : [place] [id number] MPV 8.3 6.8 - 10.4 fL [facility] Comment:Testing performed by : [facility], [address] [place], [place] [phone] RBC 4.03 3.90 - 5.00 M/cumm [facility] Comment:Testing performed by : [place] [phone] MCV 87.5 80.0 - 97.6 fL [facility] Comment:Testing performed by : [address] [address] MCH 29.3 26.7 - 33.7 pg [facility] Comment:Testing performed by : [facility], [address] [place], [place] [phone] MCHC 33.4 32.7 - 35.5 g/dL [facility] Comment:Testing performed by : [place] [phone] RDW CV 13.1 11.8 - 14.6 % [facility] Comment:Testing performed by : [address] [address] NRBC abs 0.00 0.00 - 0.01 K/cumm [facility] Comment:Testing performed by : [facility], [facility] [address] Blood 03/09/2021 7:20 AM CDT 03/09/2021 7:27 AM CDT Eren Cr MD LAB BLOOD ORDERABLES Final Re sult [facility] [place] [facility] [place] [address] documented in this encounter Visit Diagnoses Diagnosis Neuroendocrine carcinoma (HCC)- Primary Other malignant neoplasm of unspecified site Dehydration CINV (chemotherapy-induced nausea and vomiting) documented in this encounter Orders Appointment Requests Count Last Ordered Date Fi rst Ordered Date ONCBCN INFUSION APPT REQUEST 1 03/09/2021 ONCBCN LAB APPOINTMENT 1 03/09/2021 documented in this encounter Care Teams Ruby On Rails Web Developer Relationship Specialty Start Date End Date Julio César Briseno MD PCP - General 10/01/16 Eren Cr MD Referring Physician Medical Oncology 11/25/18 Yohana Bowen MD Radiation Oncologist Radiation Oncology 11/25/18 Sabrina Willard NP [address] [place] [address] Nurse Practitioner Medical Oncology 08/17/20 11/26/21 documented as of this encounter
--- OUTSIDE RECORDS SUMMARY | 2024-06-26 02:11 | XMS_ITS | Encounter Summary ---
Author Organization [facility] Healthcare Address [address] [place] [address] Care Team Providers Care Associate Veterinarian Name Role Phone Julio César Briseno MD Primary Care Provider [phone] Eren Cr MD Unavailable [phone] Yohana Bowen MD Unavailable Sabrina Willard NP Unavailable Reason for Referral * MRI/CAT/PET Scan (Routine) - Closed Specialty Diagnoses / Procedures Referred By Evelyne bowman Referred To Contact Radiology Diagnoses Neuroendocrine carcinoma (HCC) Malignant neoplasm metastatic to liver (HCC) Procedures CT chest with contrast Eren Cr MD [address] [place] [address] Phone: tel: fax: [address] [address] Referral ID Status Reason Start Date Expiration Date Visits Re quested Visits Authorized [id number] Closed 02/27/2021 03/29/2022 1 1 Reason for Visit * MRI/CAT/PET Scan (Routine) - Closed Specialty Diagnoses / Procedures [facility] Referred To Contact Radiology Diagnoses Neuroendocrine carcinoma (HCC) Malignant neoplasm metastatic to liver (HCC) Procedures CT chest with contrast Eren Cr MD [address] [facility] [address] [place] [address] Phone: tel: fax: [facility] [address] [facility] [address] Referral ID Status Reason Start Date Expiration Date Visits Re quested Visits Authorized [id number] Closed 02/27/2021 03/29/2022 1 1 Encounter Details Date Type Department Care Team (Latest Contact Info) Description 03/23/2021 2:18 PM CDT Hospital Encounter [facility] [address] [place] [phone] Eren Cr MD [address] 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 Gender Identity Not on file Sexual [...] capsuleIndications :supplement Take 1 tablet by mouth weatherization crew leader before breakfast 07/04/2016 4 cholecalciferol (VITAMIN D-3) 2,000 unit capsule Take 1 capsule (2,000 Units total) by mouth daily 30 capsule 2 04/25/2019 3 cholestyramine (QUESTRAN) 4 gram packet Take 1 packet by mouth 3 (three) times a day with meals 270 packet 3 09/04/2019 2 clotrimazole-betam ethasone (LOTRISONE) cream Apply 1 Application topically daily as needed (rash) 4 coenzyme [id number] E 100-5 mg-unit capsuleIndications :supplement Take 1 tablet by mouth weatherization crew leader before breakfast 4 denosumab (XGEVA) 120 mg/1.7 [...] POC 1.0 0.6 - 1.1 mg/dL [facility] Blood 03/23/2021 5:17 PM CDT 03/23/2021 5:17 PM CDT Eren Cr MD LAB POCT ORDERABLES - DEVICE Final Result [facility] Department [place] [address] documented in this encounter Visit Diagnoses Diagnosis [...] 03/23/2021 documented in this encounter Care Teams Associate Veterinarian Relationship Specialty Start Date End Date Julio César Briseno MD PCP - General 10/01/16 Eren Cr MD Referring Physician Medical Oncology 11/25/18 Yohana Bowen MD Radiation Oncologist Radiation Oncology 11/25/18 Sabrina Willard NP [address] [place] [address] Nurse Practitioner Medical Oncology 08/17/20 11/26/21 documented as of this encounter
--- OUTSIDE RECORDS SUMMARY | 2024-06-26 02:11 | XMS_ITS | Encounter Summary ---
Author Organization [facility] Address [address] [place] [address] Phone Care Team Providers Care Perfume Compounder Name Role Phone Julio César Briseno MD Primary Care Provider [phone] Eren Cr MD Unavailable [phone] Yohana Bowen MD Unavailable Sabrina Willard NP Unavailable [phone] 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) Procedures PA OCTREOTIDE INJECTION, DEPOT Octreotide 28 Day Cycles - Carcinoid Eren Cr MD [address] [facility] [address] [place] [address] Phone: tel: fax: [facility] [address] [address] Phone: tel: fax: Referral ID Status Reason Start Date Expiration Date V isits Requested Visits Authorized [id number] Authorized 11/28/2017 02/05/2025 1 150 Encounter Details Date Type Department Care Team (Late st Contact Info) Description 04/24/2021 2:30 PM CDT Lab [facility] Oncology [address] [facility] 7th [place] [address] [place] [address] Neuroendocrine carcinoma (CMS/HCC) (HCC); Malignant neoplasm metastatic [...] on file 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 Gender Identity Not on file Sexual [...] * (ABNORMAL) eGFR (04/24/2021 2:54 PM CDT) [facility] eGFR 63(L) 90 - 130 mL/min/1.7 3 m2 [facility] Comment: Interpretive Data Reference Interval Normal ?>/= [...] was last reviewed 2020 Testing performed by: [facility], [address] [place] [phone] Blood 04/24/2021 2:54 PM CDT 04/24/2021 2:55 PM CDT us Eren Cr MD LAB BLOOD ORDERABLES Final Re sult [facility] Department [place] [address] * (ABNORMAL) Differential, auto (04/24/2021 2:54 PM CDT) Neutrophil abs 3.4 1.8 - 6.6 K/cumm [facility] Comment:Testing performed by : [facility], [address] [place] [phone] Lymphocyte abs 0.5(L) 1.2 - 3.3 K/cumm [facility] Comment:Testing performed by : [facility], [address] [place] [phone] Monocyte abs 0.6 0.2 - 1.2 K/cumm [facility] Comment:Testing performed by : [facility], [address] [place] [phone] Eosinophil abs 0.1 0.0 - 0.5 K/cumm [facility] Comment:Testing performed by : [facility], [address] [place] [phone] Basophil abs 0.0 0.0 - 0.2 K/cumm [facility] Comment:Testing performed by : [facility], [address] [place] [phone] Neutrophil pct 73.6 % [facility] Comment: Interpretive Data Percent cell count reference ranges are not reported, since discordance with absolute values may lead to misinterpretation of CBC data. Current Interpretive Data was last revised on 2017. Testing performed by: [facility], [address] [place] [phone] Lymphocyte pct 10.9 % [facility] Comment: Interpretive Data Percent cell count reference ranges are not reported, since discordance with absolute values may lead to misinterpretation of CBC data. Current Interpretive Data was last revised on 2017. Testing performed by: [facility], [address] [facility] [address] Monocyte pct 12.8 % [facility] Comment:Testing performed by : [facility], [address] [facility] [address] Eosinophil pct 1.8 % [facility] Comment:Testing performed by : [facility], [address] [facility] [phone] Basophil pct 0.9 % [facility] Comment:Testing performed by : [facility], [address] [facility] [phone] Blood 04/24/2021 2:54 PM CDT 04/24/2021 2:55 PM CDT us Eren Cr MD LAB BLOOD ORDERABLES Final Re sult [facility] Department [place] [address] * (ABNORMAL) Lipid panel (04/24/2021 2:54 PM [...] on 2018. HDL 65 >=40 mg/dL [facility] [...] 2018. LDL, calculated 57 <=129 mg/dL [facility] [...] on 2018. Non-HDL Cholesterol 119 mg/dL [facility] [...] revised on 2018. Chol/HDL ratio 3 [facility] Blood 04/24/2021 2:54 PM CDT 04/24/2021 3:28 PM CDT Eren Cr MD LAB BLOOD ORDERABLES Final Re sult [facility] Department [place] [address] * Phosphorus (04/24/2021 2:54 PM CDT) Phosphorus, pl 2.9 2.3 - 4.5 mg/dL [facility] Comment:Testing performed by : [facility], [address] [place] [phone] Blood 04/24/2021 2:54 PM CDT 04/24/2021 2:55 PM CDT Eren Cr MD LAB BLOOD ORDERABLES Final Re sult [facility] [place] [address] * Vitamin D 25 hydroxy (04/24/2021 2:54 PM CDT) Pathologist [facility] Vitamin D 25-OH 30 30 - 80 ng/mL [facility] Blood 04/24/2021 2:54 PM CDT 04/24/2021 3:28 PM CDT Eren Cr MD LAB BLOOD ORDERABLES Final Re sult Performing Organization Address [facility] Co de Phone Number [facility] [place] [address] * (ABNORMAL) CBC with auto differential (04/24/2021 2:54 PM CDT) [facility] WBC 4.7 3.8 - 9.8 K/cumm [facility] Comment:Testing performed by : [facility], [address] [place] [phone] Hgb 12.7 12.1 - 15.1 g/dL [facility] Comment:Testing performed by : [facility], [address] [place] [phone] Hct 37.9 36.1 - 44.3 % [facility] Comment:Testing performed by : [facility], [address] [place] [phone] Plt 182 140 - 440 K/cumm [facility] Comment:Testing performed by : [facility], [address] [place] [phone] MPV 7.7 6.8 - 10.4 fL [facility] Comment:Testing performed by : [facility], [address] [place] [phone] RBC 4.15 3.90 - 5.00 M/cumm [facility] Comment:Testing performed by : [facility], [address] [place] [phone] MCV 91.4 80.0 - 97.6 fL [facility] Comment:Testing performed by : [facility], [address] [place] [phone] MCH 30.6 26.7 - 33.7 pg [facility] Comment:Testing performed by : [facility], [address] [place] [phone] MCHC 33.4 32.7 - 35.5 g/dL [facility] Comment:Testing performed by : [facility], [address] [place] [phone] RDW CV 20.2(H) 11.8 - 14.6 % [facility] Comment:Testing performed by : [facility], [address] [place] [phone] NRBC abs 0.00 0.00 - 0.01 K/cumm [facility] Comment:Testing performed by : [facility], [address] [place] [phone] Blood 04/24/2021 2:54 PM CDT 04/24/2021 2:55 PM CDT Eren Cr MD LAB BLOOD ORDERABLES Final Re sult [facility] Department [place] [address] * (ABNORMAL) Comprehensive metabolic panel (04/24/2021 2:54 PM CDT) Sodium 139 135 - 145 mmol/L [facility] Comment:Testing performed by : [facility], [address] [place] [phone] Potassium, pl 4.2 3.3 - 4.9 mmol/L [facility] Comment:Testing performed by : [facility], [address] [place] [phone] Chloride 106 97 - 110 mmol/L [facility] Comment:Testing performed by : [facility], [address] [place] [phone] CO2 26 22 - 32 mmol/L [facility] Comment:Testing performed by : [facility], [address] [place] [phone] Anion gap 7 2 - 15 mmol/L [facility] Comment:Testing performed by : [facility], [address] [place] [phone] BUN 14 8 - 25 mg/dL [facility] Comment:Testing performed by : [facility], [address] [place] [phone] Creatinine 0.91 0.60 - 1.10 mg/dL [facility] Comment:Testing performed by : [facility], [address] [place] [phone] Glucose 135 70 - 199 mg/dL CERNER [...] revised 2017. Testing performed by: [facility], [address] [place] [phone] Calcium 10.4(H) 8.5 - 10.3 mg/dL [facility] Comment:Testing performed by : [facility], [address] [place] [phone] Bilirubin, total 0.5 0.1 - 1.2 mg/dL [facility] Comment:Testing performed by : [address] [phone] Protein, pl 7.2 6.5 - 8.5 g/dL [facility] Comment:Testing performed by : [address] [phone] Albumin 4.4 3.5 - 5.0 g/dL [facility] Comment:Testing performed by : [facility], [address] [place] [phone] Alk phos 107 40 - 130 Units/L [facility] Comment:Testing performed by : [facility], [address] [facility] [phone] ALT 20 7 - 45 Units/L [facility] Comment:Testing performed by : [facility], [address] [facility] [phone] AST 24 10 - 45 Units/L [facility] Comment:Testing performed by : [facility], [address] [facility] [phone] Blood 04/24/2021 2:54 PM CDT 04/24/2021 2:55 PM CDT Eren Cr MD LAB BLOOD ORDERABLES Final Re sult [facility] Department [place] [address] * (ABNORMAL) Chromogranin A (04/24/2021 2:54 PM CDT) Chromogranin A 1125(H) <93 ng/mL [facility] Comment: Impaired renal or hepatic function or treatment with proton pump inhibitors may result in artifactual elevations of Chromogranin A. ADDITIONAL INFORMATION This test was developed and its performance characteristics determined by [facility] in a manner consistent with CLIA requirements. This test has not been cleared or approved by the U.S. Food and Drug Administration. The testing method is a homogeneous time-resolved immunofluorescent assay manufactured by [employer] and performed on the [employer] Kryptor Compact Plus. ? Values obtained with different assay methods or kits may be different and cannot be used interchangeably. ? Test results cannot be interpreted as absolute evidence for the presence or absence of malignant disease. Test Performed by: [address] [address] Regional Climate Change Analyst: Immanuel Novak M.D. Ph.D.; CLIA# [id number] Blood 04/24/2021 2:54 PM CDT 04/24/2021 4:52 PM CDT us Eren Cr MD LAB BLOOD ORDERABLES Final Re sult [facility] Department [place] [address] documented in this encounter Visit Diagnoses Diagnosis Neuroendocrine carcinoma (HCC) Other malignant neoplasm of unspecified site Malignant neoplasm metastatic to liver (HCC) documented in this encounter Orders Appointment Requests Count Last Ordered Date Fi rst Ordered Date ONCBCN LAB APPOINTMENT 1 04/24/2021 documented in this encounter Care Teams Perfume Compounder Relationship Specialty Start Date End Date Julio César Briseno MD PCP - General 10/01/16 Eren Cr MD Referring Physician Medical Oncology 11/25/18 Yohana Bowen MD Radiation Oncologist Radiation Oncology 11/25/18 Sabrina Willard NP [address] [place] [address] Nurse Practitioner Medical Oncology 08/17/20 11/26/21 documented as of this encounter
--- OUTSIDE RECORDS SUMMARY | 2024-06-26 02:11 | XMS_ITS | Encounter Summary ---
Author Organization [facility] Address [address] [place] [address] Phone Care Team Providers Care Regulatory Leader Name Role Phone Julio César Briseno MD Primary Care Provider [phone] Eren Cr MD Unavailable Yohana Bowen MD Unavailable Sabrina Willard NP Unavailable Encounter Details Date Type Department Care Team (Late st Contact Info) Description 05/23/2021 Orders Only [facility] Oncology [address] [facility] Advanced Medicine 7th [place] [address] [place] [phone] Eren Cr MD [address] [facility] [address] [place] [address] Social History Tobacco Use Types Packs/Day Years [...] file 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 Gender Identity Not on file Sexual Orientation Straight 02/19/2021 9: 29 AM CDT Occupation Industry Job Start Date Job End Date retired Not on file Not on file Not on file documented as of this encounter Plan of Treatment Not on file documented as of this encounter Visit Diagnoses Not on filedocumented in this encounter Care Teams Regulatory Leader Relationship Specialty Start Date End Date Julio César Briseno MD PCP - General 10/01/16 Eren Cr MD Referring Physician Medical Oncology 11/25/18 Yohana Bowen MD Radiation Oncologist Radiation Oncology 11/25/18 Sabrina Willard NP [address] [place] [address] Nurse Practitioner Medical Oncology 08/17/20 11/26/21 documented as of this encounter
--- OUTSIDE RECORDS SUMMARY | 2024-06-26 02:11 | XMS_ITS | Encounter Summary ---
Author Organization [facility] Address [address] [place] [address] Phone Care Team Providers Care Binder Caser Name Role Phone Julio César Briseno MD Primary Care Provider [phone] Eren Cr MD Unavailable [phone] Yohana Bowen MD Unavailable Sabrina Willard NP Unavailable [phone] Reason for Visit * Reason Comments Skin Exam Encounter Details Date Type Department Care Team (Late st Contact Info) Description 05/12/2021 1:00 PM CDT Office Visit [facility] Dermatology [address] [facility] [address] [place] [address] Po Newberry MD PhD [address] [place] [phone] Bagley angioma (Primary Dx); Dilated pore of [...] on file 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 May 12, 2021 Cosigned by Po Newberry MD PhD at 05/15/2021 8:35 PM WHEEL LOADER OPERATOR L LOADER OPERATOR L LOADER OPERATOR Associated attestation - Po Newberry MD PhD - 05/15/2021 8:35 PM WHEEL LOADER OPERATOR I have seen and examined the [...] neoplasm documented in this encounter Care Teams Binder Caser Relationship Specialty Start Date End Date Julio César Briseno MD PCP - General 10/01/16 Eren Cr MD Referring Physician Medical Oncology 11/25/18 Yohana Bowen MD Radiation Oncologist Radiation Oncology 11/25/18 Sabrina Willard NP [address] [place] [address] Nurse Practitioner Medical Oncology 08/17/20 11/26/21 documented as of this encounter
--- OUTSIDE RECORDS SUMMARY | 2024-06-26 02:11 | XMS_ITS | Encounter Summary ---
Author Organization [facility] Address [address] [place] [address] Phone Care Team Providers Care Tubular Splitting Machine Tender Name Role Phone Julio César Briseno MD Primary Care Provider [phone] Eren Cr MD Unavailable Yohana Bowen MD Unavailable Sabrina Willard NP Unavailable [phone] Encounter Details Date Type Department Care Team (Late st Contact Info) Description 03/09/2021 7:15 AM CDT Lab [facility] Oncology [address] [facility] [facility] Advanced [address] 7th [place] [address] [place] [address] Neuroendocrine carcinoma (CMS/HCC) (HCC); Dehydration; [...] on file 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, [address] [place] [phone] Blood 03/09/2021 7:20 AM CDT 03/09/2021 7:27 AM CDT us Eren Cr MD LAB BLOOD ORDERABLES Final Re sult [facility] [place] [address] * Morphologic screen (03/09/2021 7:20 AM CDT) [facility] Morphologic Screen Original results obtained required verification by peripheral smear. [facility] Blood 03/09/2021 7:20 AM CDT 03/09/2021 7:27 AM CDT us Eren Cr MD LAB BLOOD ORDERABLES Final Re sult [facility] [place] [address] * (ABNORMAL) Differential, auto (03/09/2021 7:20 AM CDT) [facility] Neutrophil abs 1.6(L) 1.8 - 6.6 K/cumm [facility] Comment:Testing performed by : [facility], [address] [place] [phone] Lymphocyte abs 0.2(L) 1.2 - 3.3 K/cumm [facility] Comment:Testing performed by : [facility], [address] [place] [phone] Monocyte abs 0.4 0.2 - 1.2 K/cumm [facility] Comment:Testing performed by : [facility], [address] [place] [phone] Eosinophil abs 0.1 0.0 - 0.5 K/cumm [facility] Comment:Testing performed by : [facility], [address] [place] [phone] Basophil abs 0.0 0.0 - 0.2 K/cumm [facility] Comment:Testing performed by : [facility], [address] [place] [phone] Neutrophil pct 67.5 % [facility] Comment: Interpretive Data Percent cell count reference ranges are not reported, since discordance with absolute values may lead to misinterpretation of CBC data. Current Interpretive Data was last revised on 2017. Testing performed by: [facility], [address] [place] [phone] Lymphocyte pct 8.0 % [facility] Comment: Interpretive Data Percent cell count reference ranges are not reported, since discordance with absolute values may lead to misinterpretation of CBC data. Current Interpretive Data was last revised on 2017. Testing performed by: [facility], [address] [place] [phone] Monocyte pct 17.7 % [facility] Comment:Testing performed by : [facility], [address] [place] [phone] Eosinophil pct 5.9 % [facility] Comment:Testing performed by : [facility], [address] [place] [phone] Basophil pct 0.9 % [facility] Comment:Testing performed by : [facility], [address] [place] [phone] Blood 03/09/2021 7:20 AM CDT 03/09/2021 7:27 AM CDT Eren Cr MD LAB BLOOD ORDERABLES Final Re sult [facility] [place] [address] * (ABNORMAL) CBC with auto differential (03/09/2021 7:20 AM CDT) WBC 2.3(L) 3.8 - 9.8 K/cumm [facility] Comment:Testing performed by : [facility], [address] [place] [phone] Hgb 11.8(L) 12.1 - 15.1 g/dL [facility] Comment:Testing performed by : [facility], [address] [place] [phone] Hct 35.3(L) 36.1 - 44.3 % [facility] Comment:Testing performed by : [facility], [address] [place] [phone] Plt 78(L) 140 - 440 K/cumm [facility] Comment:Testing performed by : [address] [phone] MPV 8.3 6.8 - 10.4 fL [facility] Comment:Testing performed by : [facility], [address] [place] [phone] RBC 4.03 3.90 - 5.00 M/cumm [facility] Comment:Testing performed by : [facility], [address] [place] [phone] MCV 87.5 80.0 - 97.6 fL [facility] Comment:Testing performed by : [address] [phone] MCH 29.3 26.7 - 33.7 pg [facility] Comment:Testing performed by : [facility], [address] [place] [phone] MCHC 33.4 32.7 - 35.5 g/dL [facility] Comment:Testing performed by : [address] [phone] RDW CV 13.1 11.8 - 14.6 % [facility] Comment:Testing performed by : [facility], [address] [place] [phone] NRBC abs 0.00 0.00 - 0.01 K/cumm [facility] Comment:Testing performed by : [facility], [address] [place] [phone] Blood 03/09/2021 7:20 AM CDT 03/09/2021 7:27 AM CDT Eren Cr MD LAB BLOOD ORDERABLES Final Re sult [facility] Department of Laboratories [place], [place] [id number] * (ABNORMAL) Comprehensive metabolic panel (03/09/2021 7:20 AM CDT) Sodium 137 135 - 145 mmol/L [facility] Comment:Testing performed by : [address] [address] Potassium, pl 4.2 3.3 - 4.9 mmol/L [facility] Comment:Testing performed by : [address] [address] Chloride 105 97 - 110 mmol/L [facility] Comment:Testing performed by : [facility], [address] [place] [phone] CO2 20(L) 22 - 32 mmol/L [facility] Comment:Testing performed by : [facility], [address] [place] [phone] Anion gap 12 2 - 15 mmol/L [facility] Comment:Testing performed by : [facility], [address] [place] [phone] BUN 16 8 - 25 mg/dL [facility] Comment:Testing performed by : [facility], [address] [place] [phone] Creatinine 1.14(H) 0.60 - 1.10 mg/dL [facility] Comment:Testing performed by : [facility], [address] [place] [phone] Glucose 227(H) 70 - 199 mg/dL [facility] [...] Testing performed by: [facility], [address] [place] [phone] Calcium 10.0 8.5 - 10.3 mg/dL [facility] Comment:Testing performed by : [facility], [address] [place] [phone] Bilirubin, total 0.3 0.1 - 1.2 mg/dL [facility] Comment:Testing performed by : [facility], [address] [place] [phone] Protein, pl 6.5 6.5 - 8.5 g/dL [facility] Comment:Testing performed by : [facility], [address] [place] [phone] Albumin 3.7 3.5 - 5.0 g/dL [facility] Comment:Testing performed by : [facility], [address] [facility] [address] Alk phos 121 40 - 130 Units/L [facility] Comment:Testing performed by : [facility], [address] [facility] [address] ALT 31 7 - 45 Units/L [facility] Comment:Testing performed by : [facility], [address] [place] [phone] AST 44 10 - 45 Units/L [facility] Comment:Testing performed by : [facility], [address] [place] [phone] Blood 03/09/2021 7:20 AM CDT 03/09/2021 7:27 AM CDT us Eren Cr MD LAB BLOOD ORDERABLES Final Re sult [facility] [place] [address] documented in this encounter Visit Diagnoses Diagnosis Neuroendocrine carcinoma (HCC) Other malignant neoplasm of unspecified site Dehydration CINV (chemotherapy-induced nausea and vomiting) documented in this encounter Orders Appointment Requests Count Last Ordered Date Fi rst Ordered Date ONCBCN LAB APPOINTMENT 1 03/09/2021 documented in this encounter Care Teams Tubular Splitting Machine Tender Relationship Specialty Start Date End Date Julio César Briseno MD PCP - General 10/01/16 Eren Cr MD Referring Physician Medical Oncology 11/25/18 Yohana Bowen MD Radiation Oncologist Radiation Oncology 11/25/18 Sabrina Willard NP [address] [place] [address] Nurse Practitioner Medical Oncology 08/17/20 11/26/21 documented as of this encounter
--- OUTSIDE RECORDS SUMMARY | 2024-06-26 02:11 | XMS_ITS | Encounter Summary ---
Author Organization [facility] Address [address] [place] [address] Phone Care Team Providers Care Recreation Instructor Name Role Phone Julio César Briseno MD Primary Care Provider Eren Cr MD Unavailable [phone] Yohana Bowen MD Unavailable Sabrina Willard NP Unavailable [phone] Encounter Details Date Type Department Care Team (Late st Contact Info) Description 05/30/2021 4:00 PM GUM COOK Telemedicine [facility] Surgery [address] [place] [address] Greyson Reeves MD [address] [facility] [id number] [place] 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) (Primary Dx) [...] on file Legal Sex Female 2:41 PM GUM COOK Gender Identity Not on file Sexual [...] 4 gram packet clotrimazole-betamethasone (LOTRISONE) cream coenzyme [id number] E (CO Q-10, WITH VIT E,) 100-5 [...] patient was located at home in the [facility]. The patient visit started at 130 and [...] a telephone or video visit during [address] explained to them. After being given an opportunity to ask questions about and discuss this type of visit, they verbally consented to proceeding with the telephone/video visit and understand thatthis service replaces an office visit. 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
--- OUTSIDE RECORDS SUMMARY | 2024-06-26 02:11 | XMS_ITS | Encounter Summary ---
Author Organization [facility] Address [address] [place] [address] Phone Care Team Providers Care Polisher Eyeglass Frames Name Role Phone Julio César Briseno MD Primary Care Provider Eren Cr MD Unavailable [phone] Yohana Bowen MD Unavailable Sabrina Willard NP Unavailable Encounter Details Date Type Department Care Team (Late st Contact Info) Description 02/27/2021 Orders Only [facility] Oncology [address] [facility] Advanced Medicine 7th [place] [address] [place] [phone] Eren Cr MD [address] [facility] [address] [place] [address] Malignant neoplasm metastatic to liver (CMS/HCC) (HCC) [...] on file 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 HDL 73 >=40 mg/dL [facility] Comment: Interpretive [...] on 2018. LDL, calculated 88 <=129 mg/dL [facility] Comment: Interpretive Data Ages < or [...] on 2018. Non-HDL Cholesterol 127 mg/dL [facility] Comment: Interpretive [...] 3 [facility] Blood 03/27/2021 2:25 PM CDT 03/27/2021 2:54 PM CDT us Eren Cr MD LAB BLOOD ORDERABLES Final Re sult [facility] Department [place] [address] documented in this encounter Visit Diagnoses Diagnosis Malignant neoplasm metastatic to liver (HCC)- Primary Neuroendocrine carcinoma (HCC) Other malignant neoplasm of unspecified site documented in this encounter Care Teams Polisher Eyeglass Frames Relationship Specialty Start Date End Date Julio César Briseno MD PCP - General 10/01/16 Eren Cr MD Referring Physician Medical Oncology 11/25/18 Yohana Bowen MD Radiation Oncologist Radiation Oncology 11/25/18 Sabrina Willard NP [address] [place] [address] Nurse Practitioner Medical Oncology 08/17/20 11/26/21 documented as of this encounter
--- OUTSIDE RECORDS SUMMARY | 2024-06-26 02:11 | XMS_ITS | Encounter Summary ---
Author Organization [facility] Address [address] [place] [address] Phone Care Team Providers Care Director Medical Affairs Name Role Phone Julio César Briseno MD Primary Care Provider Eren Cr MD Unavailable Yohana Bowen MD Unavailable Sabrina Willard NP Unavailable Encounter Details Date Type Department Care Team (Late st Contact Info) Description 03/23/2021 Orders Only [facility] Oncology [address] [facility] [address] Medicine 7th [place] [address] [place] [phone] Eren Cr MD [address] [facility] [address] [place] [address] Social History Tobacco Use Types Packs/Day Years [...] file 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 Gender Identity Not on file Sexual Orientation Straight 02/19/2021 9: 29 AM CDT Occupation Industry Job Start Date Job End Date retired Not on file Not on file Not on file documented as of this encounter Plan of Treatment Not on file documented as of this encounter Visit Diagnoses Not on filedocumented in this encounter Care Teams Director Medical Affairs Relationship Specialty Start Date End Date Julio César Briseno MD PCP - General 10/01/16 Eren Cr MD Referring Physician Medical Oncology 11/25/18 Yohana Bowen MD Radiation Oncologist Radiation Oncology 11/25/18 Sabrina Willard NP [address] [place] [address] Nurse Practitioner Medical Oncology 08/17/20 11/26/21 documented as of this encounter
--- OUTSIDE RECORDS SUMMARY | 2024-06-26 02:11 | XMS_ITS | Encounter Summary ---
Author Organization [facility] Address [address] [place] [address] Phone Care Team Providers Care Corporate Legal Intern Name Role Phone Julio César Briseno MD Primary Care Provider [phone] Eren Cr MD Unavailable [phone] Yohana Bowen MD Unavailable Sabrina Willard NP Unavailable [phone] 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) Procedures AK OCTREOTIDE INJECTION, DEPOT Octreotide 28 Day Cycles - Carcinoid Eren Cr MD [address] [facility] [address] [place] [address] Phone: tel: fax: [facility] [address] [address] Phone: tel: fax: Referral ID Status Reason Start Date Expiration Date V isits Requested Visits Authorized [id number] Authorized 11/28/2017 02/05/2025 1 150 Encounter Details Date Type Department Care Team (Late st Contact Info) Description 03/27/2021 2:00 PM CDT Lab [facility] Oncology [address] [facility] 7th [place] [address] [place] [address] Neuroendocrine carcinoma (CMS/HCC) (HCC); Malignant neoplasm metastatic [...] on file Legal Sex Female 2:41 PM DETECTIVE Gender Identity Not on file Sexual [...] * (ABNORMAL) eGFR (03/27/2021 2:25 PM CDT) [facility] eGFR 56(L) 90 - 130 mL/min/1.7 3 m2 [facility] Comment: Interpretive Data Reference Interval Normal [...] was last reviewed 2020 Testing performed by: [facility], [address] [place] [phone] Blood 03/27/2021 2:25 PM CDT 03/27/2021 2:30 PM CDT us Eren Cr MD LAB BLOOD ORDERABLES Final Re sult [facility] [place] [address] * (ABNORMAL) Differential, auto (03/27/2021 2:25 PM CDT) Neutrophil abs 5.5 1.8 - 6.6 K/cumm [facility] Comment:Testing performed by : [facility], [address] [place] [phone] Lymphocyte abs 0.5(L) 1.2 - 3.3 K/cumm [facility] Comment:Testing performed by : [facility], [address] [place] [phone] Monocyte abs 0.6 0.2 - 1.2 K/cumm [facility] Comment:Testing performed by : [facility], [address] [place] [phone] Eosinophil abs 0.0 0.0 - 0.5 K/cumm [facility] Comment:Testing performed by : [facility], [address] [place] [phone] Basophil abs 0.0 0.0 - 0.2 K/cumm [facility] Comment:Testing performed by : [facility], [address] [place] [phone] Neutrophil pct 82.5 % [facility] Comment: Interpretive Data Percent cell count reference ranges are not reported, since discordance with absolute values may lead to misinterpretation of CBC data. Current Interpretive Data was last revised on 2017. Testing performed by: [facility], [address] [place] [phone] Lymphocyte pct 7.8 % [facility] Comment: Interpretive Data Percent cell count reference ranges are not reported, since discordance with absolute values may lead to misinterpretation of CBC data. Current Interpretive Data was last revised on 2017. Testing performed by: [facility], [address] [facility] [phone] Monocyte pct 9.2 % [facility] Comment:Testing performed by : [facility], [address] [place] [phone] Eosinophil pct 0.2 % [facility] Comment:Testing performed by : [facility], [address] [place] [phone] Basophil pct 0.3 % [facility] Comment:Testing performed by : [facility], [address] [place] [phone] Blood 03/27/2021 2:25 PM CDT 03/27/2021 2:30 PM CDT Eren Cr MD LAB BLOOD ORDERABLES Final Re sult Performing Organization Address City/[facility]/ZIP Co de Phone Number [facility] [place] [address] * Phosphorus (03/27/2021 2:25 PM CDT) [facility] Phosphorus, pl 2.8 2.3 - 4.5 mg/dL [facility] Comment:Testing performed by : [facility], [address] [place] [phone] Blood 03/27/2021 2:25 PM CDT 03/27/2021 2:30 PM CDT Eren Cr MD LAB BLOOD ORDERABLES Final Re sult [facility] [place] [address] * Vitamin D 25 hydroxy (03/27/2021 2:25 PM CDT) Pathologist [facility] Vitamin D 25-OH 31 30 - 80 ng/mL [facility] Blood 03/27/2021 2:25 PM CDT 03/27/2021 2:54 PM CDT us Eren Cr MD LAB BLOOD ORDERABLES Final Re sult [facility] [place] [address] * (ABNORMAL) CBC with auto differential (03/27/2021 2:25 PM CDT) WBC 6.6 3.8 - 9.8 K/cumm [facility] Comment:Testing performed by : [facility], [address] [place] [phone] Hgb 11.8(L) 12.1 - 15.1 g/dL [facility] Comment:Testing performed by : [address] [address] Hct 35.6(L) 36.1 - 44.3 % [facility] Comment:Testing performed by : [facility], [address] [place] [phone] Plt 199 140 - 440 K/cumm [facility] Comment:Testing performed by : [address] [address] MPV 8.4 6.8 - 10.4 fL [facility] Comment:Testing performed by : [address] [address] RBC 4.08 3.90 - 5.00 M/cumm [facility] Comment:Testing performed by : [facility], [address] [place] [phone] MCV 87.3 80.0 - 97.6 fL [facility] Comment:Testing performed by : [address] [address] MCH 29.0 26.7 - 33.7 pg [facility] Comment:Testing performed by : [address] [address] MCHC 33.2 32.7 - 35.5 g/dL [facility] Comment:Testing performed by : [facility], [address] [place] [phone] RDW CV 14.7(H) 11.8 - 14.6 % [facility] Comment:Testing performed by : [facility], [address] [place] [phone] NRBC abs 0.01 0.00 - 0.01 K/cumm [facility] Comment:Testing performed by : [facility], [address] [place] [phone] Blood 03/27/2021 2:25 PM CDT 03/27/2021 2:30 PM CDT us Eren Cr MD LAB BLOOD ORDERABLES Final Re sult [facility] [place] [address] * (ABNORMAL) Comprehensive metabolic panel (03/27/2021 2:25 PM CDT) Sodium 140 135 - 145 mmol/L [facility] Comment:Testing performed by : [facility], [address] [place] [phone] Potassium, pl 3.6 3.3 - 4.9 mmol/L [facility] Comment:Testing performed by : [facility], [address] [place] [phone] Chloride 102 97 - 110 mmol/L [facility] Comment:Testing performed by : [facility], [address] [place] [phone] CO2 27 22 - 32 mmol/L [facility] Comment:Testing performed by : [facility], [address] [place] [phone] Anion gap 11 2 - 15 mmol/L [facility] Comment:Testing performed by : [facility], [address] [place] [phone] BUN 23 8 - 25 mg/dL [facility] Comment:Testing performed by : [facility], [address] [place] [phone] Creatinine 1.00 0.60 - 1.10 mg/dL [facility] Comment:Testing performed by : [facility], [address] [place] [phone] Glucose 177 70 - 199 mg/dL CERNER [...] was last revised 2017. Testing performed by: [address] Calcium 10.9(H) 8.5 - 10.3 mg/dL [facility] Comment:Testing performed by : [place] [id number] Bilirubin, total 0.4 0.1 - 1.2 mg/dL [facility] Comment:Testing performed by : [address] [address] Protein, pl 6.9 6.5 - 8.5 g/dL [facility] Comment:Testing performed by : [address] [address] Albumin 4.1 3.5 - 5.0 g/dL [facility] Comment:Testing performed by : [address] [phone] Alk phos 131(H) 40 - 130 Units/L [facility] Comment:Testing performed by : [place] [id number] ALT 25 7 - 45 Units/L [facility] Comment:Testing performed by : [place] [id number] AST 30 10 - 45 Units/L [facility] Comment:Testing performed by : [address] [phone] Blood 03/27/2021 2:25 PM CDT 03/27/2021 2:30 PM CDT Eren Cr MD LAB BLOOD ORDERABLES Final Re sult Performing Organization Address [facility] Co de Phone Number [facility] [place] [address] * (ABNORMAL) Chromogranin A (03/27/2021 2:25 PM CDT) Pathologist [facility] Chromogranin A 980(H) <93 ng/mL [facility] Comment: Impaired renal or hepatic function or treatment with proton pump inhibitors may result in artifactual elevations of Chromogranin A. ADDITIONAL INFORMATION This test was developed and its performance characteristics determined by [facility] in a manner consistent with CLIA requirements. This test has not been cleared or approved by the U.S. Food and Drug Administration. The testing method is a homogeneous time-resolved immunofluorescent assay manufactured by [employer] and performed on the [employer] Kryptor Compact Plus. ? Values obtained with different assay methods or kits may be different and cannot be used interchangeably. ? Test results cannot be interpreted as absolute evidence for the presence or absence of malignant disease. Test Performed by: [place] [address] Box Truck Washer: Immanuel Novak M.D. Ph.D.; CLIA# [id number] Blood 03/27/2021 2:25 PM CDT 03/27/2021 4:10 PM CDT Eren Cr MD LAB BLOOD ORDERABLES Final Re sult Performing Organization Address [facility] Co de Phone Number [facility] [place] [address] * (ABNORMAL) Lipid panel (03/27/2021 2:25 PM CDT) Cholesterol 200(H) 30 - 199 mg/dL [facility] Comment: Interpretive Data Ages < or [...] revised on 2018. Triglycerides 195(H) <=149 mg/dL [facility] Comment: Interpretive Data Ages < or [...] revised on 2018. HDL 73 >=40 mg/dL [facility] Comment: Interpretive Data Ages < or [...] on 2018. LDL, calculated 88 <=129 mg/dL [facility] Comment: Interpretive Data Ages < or [...] revised on 2018. Non-HDL Cholesterol 127 mg/dL [facility] Comment: Interpretive Data Ages < or [...] revised on 2018. Chol/HDL ratio 3 [facility] Blood 03/27/2021 2:25 PM CDT 03/27/2021 2:54 PM CDT us Eren Cr MD LAB BLOOD ORDERABLES Final Re sult [facility] [place] [address] documented in this encounter Visit Diagnoses Diagnosis Neuroendocrine carcinoma (HCC) Other malignant neoplasm of unspecified site Malignant neoplasm metastatic to liver (HCC) documented in this encounter Orders Appointment Requests Count Last Ordered Date Fi rst Ordered Date ONCBCN LAB APPOINTMENT 1 03/27/2021 documented in this encounter Care Teams Corporate Legal Intern Relationship Specialty Start Date End Date Julio César Briseno MD PCP - General 10/01/16 Eren Cr MD Referring Physician Medical Oncology 11/25/18 Yohana Bowen MD Radiation Oncologist Radiation Oncology 11/25/18 Sabrina Willard NP [address] [place] [address] Nurse Practitioner Medical Oncology 08/17/20 11/26/21 documented as of this encounter
--- OUTSIDE RECORDS SUMMARY | 2024-06-26 02:11 | XMS_ITS | Encounter Summary ---
Author Organization [facility] Address [address] [place] [address] Phone Care Team Providers Care Railroad Accountant Name Role Phone Julio César Briseno MD Primary Care Provider Eren Cr MD Unavailable [phone] Yohana Bowen MD Unavailable Sabrina Willard NP Unavailable [phone] Encounter Details Date Type Department Care Team (Late st Contact Info) Description 05/24/2021 Orders Only [facility] Oncology [address] [facility] Advanced [facility] 7th [place] [address] [place] [phone] Eren Cr MD [address] [facility] [address] [place] [address] Social History Tobacco Use Types Packs/Day Years [...] file Legal Sex Female 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 Gender Identity Not on file Sexual Orientation Straight 02/19/2021 9: 29 AM CDT Occupation Industry Job Start Date Job End Date retired Not on file Not on file Not on file documented as of this encounter Plan of Treatment Not on file documented as of this encounter Visit Diagnoses Not on filedocumented in this encounter Care Teams Railroad Accountant Relationship Specialty Start Date End Date Julio César Briseno MD PCP - General 10/01/16 Eren Cr MD Referring Physician Medical Oncology 11/25/18 Yohana Bowen MD Radiation Oncologist Radiation Oncology 11/25/18 Sabrina Willard NP [address] [place] [address] Nurse Practitioner Medical Oncology 08/17/20 11/26/21 documented as of this encounter
--- OUTSIDE RECORDS SUMMARY | 2024-06-26 02:11 | XMS_ITS | Encounter Summary ---
Author Organization [facility] Address [address] [place] [address] Phone Care Team Providers Care Adult Parole Officer Name Role Phone Julio César Briseno MD Primary Care Provider Eren Cr MD Unavailable [phone] Yohnaa Bowen MD Unavailable Sabrina Willard NP Unavailable [phone] Encounter Details Date Type Department Care Team (Latest Contact Info) Description 03/17/2021 7:30 AM CDT Clinical Support 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 Gender Identity Not on file Sexual [...] 90 - 130 mL/min/1.7 3 m2 [facility] Comment: Interpretive [...] was last reviewed 2020 Testing performed by: [facility], [address] [place] [phone] Blood 03/17/2021 7:50 AM CDT 03/17/2021 7:56 AM CDT Eren Cr MD LAB BLOOD ORDERABLES Final Re sult [facility] Department [place] [address] * (ABNORMAL) Differential, auto (03/17/2021 7:50 AM CDT) Neutrophil abs 2.1 1.8 - 6.6 K/cumm [facility] Comment:Testing performed by : [facility], [address] [place] [phone] Lymphocyte abs 0.2(L) 1.2 - 3.3 K/cumm [facility] Comment:Testing performed by : [facility], [address] [place] [address] Monocyte abs 0.5 0.2 - 1.2 K/cumm [facility] Comment:Testing performed by : [facility], [address] [place] [address] Eosinophil abs 0.1 0.0 - 0.5 K/cumm [facility]ERMINNIE [facility]J Comment:Testing performed by : [facility], [address] [place] [address] Basophil abs 0.0 0.0 - 0.2 K/cumm [facility] Comment:Testing performed by : [address] [address] Neutrophil pct 71.7 % [facility] Comment: Interpretive Data Percent cell count reference ranges are not reported, since discordance with absolute values may lead to misinterpretation of CBC data. Current Interpretive Data was last revised on 2017. Testing performed by: [facility], [address] [place] [phone] Lymphocyte pct 5.9 % [facility] Comment: Interpretive Data Percent cell count reference ranges are not reported, since discordance with absolute values may lead to misinterpretation of CBC data. Current Interpretive Data was last revised on 2017. Testing performed by: [facility], [address] [place] [phone] Monocyte pct 17.5 % [facility] Comment:Testing performed by : [facility], [address] [place] [address] Eosinophil pct 4.3 % [facility] Comment:Testing performed by : [facility], [address] [place] [address] Basophil pct 0.6 % [facility] Comment:Testing performed by : [address] [address] Blood 03/17/2021 7:50 AM CDT 03/17/2021 7:56 AM CDT us Eren Cr MD LAB BLOOD ORDERABLES Final Re sult [facility] [place] [address] * (ABNORMAL) CBC with auto differential (03/17/2021 7:50 AM CDT) WBC 2.9(L) 3.8 - 9.8 K/cumm [facility] Comment:Testing performed by : [facility], [address] [place] [address] Hgb 11.3(L) 12.1 - 15.1 g/dL [facility] Comment:Testing performed by : [address] [phone] Hct 33.0(L) 36.1 - 44.3 % [facility] Comment:Testing performed by : [address] [address] Plt 95(L) 140 - 440 K/cumm [facility] Comment:Testing performed by : [facility], [address] [place] [address] MPV 8.1 6.8 - 10.4 fL [facility] Comment:Testing performed by : [facility], [address] [place], [place] [phone] RBC 3.89(L) 3.90 - 5.00 M/cumm [facility] Comment:Testing performed by : [facility], [address] [place], [place] [phone] MCV 84.9 80.0 - 97.6 fL [facility] Comment:Testing performed by : [facility], [address] [place] [address] MCH 29.0 26.7 - 33.7 pg [facility] Comment:Testing performed by : [place] [id number] MCHC 34.2 32.7 - 35.5 g/dL [facility] Comment:Testing performed by : [facility], [address] [place] [address] RDW CV 13.9 11.8 - 14.6 % [facility] Comment:Testing performed by : [address] [address] NRBC abs 0.00 0.00 - 0.01 K/cumm [facility] Comment:Testing performed by : [facility], [address] [place] [address] Blood 03/17/2021 7:50 AM CDT 03/17/2021 7:56 AM CDT us Eren Cr MD LAB BLOOD ORDERABLES Final Re sult [facility] [place] [address] * (ABNORMAL) Comprehensive metabolic panel (03/17/2021 7:50 AM CDT) Sodium 137 135 - 145 mmol/L [facility] Comment:Testing performed by : [facility], [address] [place] [phone] Potassium, pl 3.4 3.3 - 4.9 mmol/L [facility] Comment:Testing performed by : [facility], [address] [place] [phone] Chloride 107 97 - 110 mmol/L [facility] Comment:Testing performed by : [facility], [address] [place] [address] CO2 21(L) 22 - 32 mmol/L [facility] Comment:Testing performed by : [facility], [address] [place] [address] Anion gap 10 2 - 15 mmol/L [facility] Comment:Testing performed by : [facility], [address] [place] [address] BUN 10 8 - 25 mg/dL [facility] Comment:Testing performed by : [facility], [address] [place] [address] Creatinine 0.82 0.60 - 1.10 mg/dL [facility] Comment:Testing performed by : [facility], [address] [place] [address] Glucose 151 70 - 199 mg/dL CERNER [...] Testing performed by: [facility], [address] [place] [address] Calcium 9.9 8.5 - 10.3 mg/dL [facility] Comment:Testing performed by : [facility], [address] [place] [phone] Bilirubin, total 0.4 0.1 - 1.2 mg/dL [facility] Comment:Testing performed by : [facility], [address] [place] [phone] Protein, pl 6.6 6.5 - 8.5 g/dL [facility] Comment:Testing performed by : [facility], [address] [place] [address] Albumin 3.7 3.5 - 5.0 g/dL [facility] Comment:Testing performed by : [facility], [address] [place] [phone] Alk phos 165(H) 40 - 130 Units/L [facility] Comment:Testing performed by : [facility], [address] [place] [phone] ALT 28 7 - 45 Units/L [facility] Comment:Testing performed by : [facility], [address] [place] [phone] AST 36 10 - 45 Units/L [facility] Comment:Testing performed by : [facility], [address] [place] [phone] Blood 03/17/2021 7:50 AM CDT 03/17/2021 7:56 AM CDT us Eren Cr MD LAB BLOOD ORDERABLES Final Re sult [facility] One [facility] Department of Laboratories [place], [place] [id number] documented in this encounter Visit Diagnoses Diagnosis Neuro-endocrine carcinoma (HCC) Other malignant neoplasm of unspecified site documented in this encounter Orders Appointment Requests Count Last Ordered Date Fi rst Ordered Date ONCBCN LAB APPOINTMENT 1 03/17/2021 documented in this encounter Care Teams Adult Parole Officer Relationship Specialty Start Date End Date Julio César Briseno MD PCP - General 10/01/16 Eren Cr MD Referring Physician Medical Oncology 11/25/18 Yohana Bowen MD Radiation Oncologist Radiation Oncology 11/25/18 Sabrina iWllard NP [address] [place] [address] Nurse Practitioner Medical Oncology 08/17/20 11/26/21 documented as of this encounter
--- OUTSIDE RECORDS SUMMARY | 2024-06-26 02:11 | XMS_ITS | Encounter Summary ---
Author Organization [facility] Address [address] [place] [address] Phone Care Team Providers Care Home Care Chaplain Name Role Phone Julio César Briseno MD Primary Care Provider Eren Cr MD Unavailable [phone] Yohana Bowen MD Unavailable Sabrina Willard NP Unavailable [phone] Reason for Visit * Reason Onset Date Comments follow up nausea/vomiting 03/09/2021 Encounter Details Date Type Department Care Team (Late st Contact Info) Description 03/09/2021 Telephone [facility] Oncology [address] [facility] Advanced Medicine 7th [place] [address] [place] [address] Eren Cr MD [address] [facility] [address] [place] [address] follow up nausea/vomiting Social History Tobacco Use [...] on file 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
--- OUTSIDE RECORDS SUMMARY | 2024-06-26 02:11 | XMS_ITS | Encounter Summary ---
Author Organization [facility] Address [address] [place] [address] Phone Care Team Providers Care Upsetting Machine Operator Name Role Phone Julio César Briseno MD Primary Care Provider [phone] Eren Cr MD Unavailable [phone] Yohana Bowen MD Unavailable Sabrina Willard NP Unavailable [phone] 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) Procedures [place] OCTREOTIDE INJECTION, DEPOT Octreotide 28 Day Cycles - Carcinoid Eren Cr MD [address] [facility] [address] [place] [address] Phone: tel: fax: [facility] [address] [address] Phone: tel: fax: Referral ID Status Reason Start Date Expiration Date V isits Requested Visits Authorized [id number] Authorized 11/28/2017 02/05/2025 1 150 Encounter Details Date Type Department Care Team (Late st Contact Info) Description 04/24/2021 4:00 PM CDT Infusion [facility] Oncology [address] 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 Gender Identity Not on file Sexual Orientation Straight 02/19/2021 9: 29 AM CDT Occupation Industry Job Start Date Job End Date retired Not on file Not on file Not on file documented as of this encounter Nursing Notes * Susana Begum - 04/24/2021 4:00 PM CDT Oncology Nursing Note [facility] La Chung is a [...] First Orde red Date ONCBCN NURSING COMMUNICATION [id number] 04/24 ONCBCN NURSING COMMUNICATION [id number] 1 1 PHYSICIAN COMMUNICATION ORDER 1 04/24/2021 Appointment Requests Count Last Ordered Date Fi rst Ordered Date ONCBCN INJECTION APPOINTMENT REQUEST 1 04/07 documented in this encounter Care Teams Upsetting Machine Operator Relationship Specialty Start Date End Date Julio César Briseno MD PCP - General 10/01/16 Eren Cr MD Referring Physician Medical Oncology 11/25/18 Yohana Bowen MD Radiation Oncologist Radiation Oncology 11/25/18 Sabrina Willard NP [address] [place] [address] Nurse Practitioner Medical Oncology 08/17/20 11/26/21 documented as of this encounter
--- OUTSIDE RECORDS SUMMARY | 2024-06-26 02:11 | XMS_ITS | Encounter Summary ---
Author Organization [facility] Address [address] [place] [address] Phone Care Team Providers Care Supervisor Customer Complaint Service Name Role Phone Julio César Briseno MD Primary Care Provider [phone] Eren Cr MD Unavailable [phone] Yohana Bowen MD Unavailable Sabrina Willard NP Unavailable [phone] Reason for Visit * Episode Based Medications (Routine) - Authorized Specialty Diagnoses / Procedures Referred By Contac t Referred To Contact Oncology Diagnoses 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) Procedures [place] DENOSUMAB INJECTION DENOSUMAB (XGEVA) Eren Cr MD [address] [facility] [address] [place] [address] Phone: tel: fax: [facility] [address] [facility] 7th [place] [address] Phone: tel: Referral ID Status Reason Start Date Expiration Date V isits Requested Visits Authorized [id number] Authorized 03/02/2019 10/06/2024 1 60 Encounter Details Date Type Department Care Team (Late st Contact Info) Description 03/09/2021 8:00 AM CDT Infusion [facility] Oncology [address] 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 Gender Identity Not on file Sexual [...] 03/09/2021 8:00 AM CDT Oncology Nursing Note [facility] La Chung is a 70 [...] 03/09/2021 documented in this encounter Care Teams Supervisor Customer Complaint Service Relationship Specialty Start Date End Date Julio César Briseno MD PCP - General 10/01/16 Eren Cr MD Referring Physician Medical Oncology 11/25/18 Yohana Bowen MD Radiation Oncologist Radiation Oncology 11/25/18 Sabrina Willard NP [facility] [address] [place] [address] Nurse Practitioner Medical Oncology 08/17/20 11/26/21 documented as of this encounter
--- OUTSIDE RECORDS SUMMARY | 2024-06-26 02:11 | XMS_ITS | Encounter Summary ---
Author Organization [facility] Address [address] [place] [address] Care Team Providers Care Processing Mgr Name Role Phone Julio César Briseno MD Primary Care Provider [phone] Eren Cr MD Unavailable [phone] Yohana Bowen MD Unavailable Sabrina Willard NP Unavailable [phone] Reason for Referral * MRI/CAT/PET Scan (Routine) - Closed Specialty Diagnoses / Procedures Referred By Evelyne bowman Referred To Contact Radiology Diagnoses Malignant neoplasm metastatic to liver (HCC) Bone metastasis Neuroendocrine carcinoma (HCC) Procedures MRI Abdomen Pelvis W WO Contrast Eren Cr MD [address] [place] [address] Phone: tel: fax: [address] [address] Referral ID Status Reason Start Date Expiration Date Visits Re quested Visits Authorized [id number] Closed 05/22/2021 06/21/2022 1 1 NERY OPERATOR HELPER CRACKING UNIT Reason for Visit * MRI/CAT/PET Scan (Routine) - Closed Specialty Diagnoses / Procedures Referred By Evelyne bowman Referred To Contact Radiology Diagnoses Malignant neoplasm metastatic to liver (HCC) Bone metastasis Neuroendocrine carcinoma (HCC) Procedures MRI Abdomen Pelvis W WO Contrast Eren Cr MD [address] [facility] [address] [place] [address] Phone: tel: fax: [facility] [address] [facility] [place] [address] Referral ID Status Reason Start Date Expiration Date Visits Re quested Visits Authorized [id number] Closed 05/22/2021 06/21/2022 1 1 Encounter Details Date Type Department Care Team (Latest Contact Info) Description 06/15/2021 4:15 PM REFINERY OPERATOR [facility]ACKING UNIT - 06/15/2021 11:59 PM REFINERY OPERATOR [facility]ING [facility] Hospital Encounter [facility] [address] [place] [address] Eren Cr MD [address] [facility] [address] [place] [address] Malignant neoplasm metastatic to liver (CMS/HCC) (HCC); [...] Legal Sex Female 2:41 PM REFINERY OPERATOR HELPER CRACKING UNIT Gender Identity Not on file Sexual Orientation [...] capsuleIndications :supplement Take 1 tablet by mouth internal audit director before breakfast 07/04/2016 4 cholecalciferol (VITAMIN D-3) 2,000 unit capsule Take 1 capsule (2,000 Units total) by mouth daily 30 capsule 2 04/25/2019 3 cholestyramine (QUESTRAN) 4 gram packet Take 1 packet by mouth 3 (three) times a day with meals 270 packet 3 09/04/2019 2 clotrimazole-betam ethasone (LOTRISONE) cream Apply 1 Application topically daily as needed (rash) 4 coenzyme [id number] 100-5 mg-unit capsuleIndications :supplement Take 1 tablet by mouth internal audit director before breakfast 4 denosumab (XGEVA) 120 mg/1.7 [...] Read Routine (OP Routine) 06/15/2021 5:37 PM REFINERY OPERATOR HEL[facility] CRACKING UNIT Malignant neoplasm metastatic to liver (CMS/HCC) (HCC) Bone metastasis (CMS/HCC) (HCC) Neuroendocrine carcinoma (CMS/HCC) (HCC) POCT CREATININE - DEVICE Routine 06/15/2021 4:45 PM REFINERY OPERATOR [facility]ING UN[facility] documented in this encounter Results * MRI Abdomen Pelvis W WO Contrast (06/15/2021 5:37 PM REFINERY OPERATOR [facility]ACKING UNIT) Anatomical Region Laterality Modality Body N/A Magnetic Resonan ce 06/16/2021 8:44 AM REFINERY OPERATOR [facility] Impressions 06/16/2021 11:46 AM REFINERY OPERATOR [facility]ING [facility]IT 1. ??Majority of liver lesions have increased in size, and the vaginal cuff lesion is likely also increased in size, indicating disease progression. Dictated by: Joyce Burgos MD The radiology attending physician has personally reviewed this study, and had reviewed and/or edited this written report and agrees with it. Electronically signed by: Mikey Abernathy M.D. Narrative 06/16/2021 11:46 AM REFINERY OPERATOR HELPER CRACKING UNIT EXAMINATION: 1. MAGNETIC RESONANCE IMAGING OF THE [...] lt * POCT creatinine (06/15/2021 4:45 PM REFINERY OPERATOR [facility] CRACKING UNIT) Creatinine POC 1.0 0.6 - 1.1 mg/dL [facility] Blood 06/15/2021 4:45 PM REFINERY OPERATOR HEL[facility] CRACKING UNIT 06/15/2021 4:45 PM REFINERY OPERATOR HELPER CRACKING UNIT Eren Cr MD LAB POCT ORDERABLES - DEVICE Final Result Performing Organization Address City/State/[facility] Co de Phone Number [facility] Department [place] [address] documented in this encounter Visit Diagnoses Diagnosis [...] Protocol Orders Contrast Given 06/15/2021 5:34 PM REFINERY OPERATOR HELPER CRACKING UNIT 16 mL documented in this encounter Orders Medications Ordered That Brett ht Not Have Been Administered Count Last Ordered Date First Ordered Date gadoxetate (EOVIST) 0.25 mmo l/mL (181.43 mg/mL) injection 16.12 mL 1 06/15/2021 documented in this encounter Care Teams Processing Mgr Relationship Specialty Start Date End Date Julio César Briseno MD PCP - General 10/01/16 Eren Cr MD Referring Physician Medical Oncology 11/25/18 Yohana Bowen MD Radiation Oncologist Radiation Oncology 11/25/18 Sabrina Willard NP [address] [place] [address] Nurse Practitioner Medical Oncology 08/17/20 11/26/21 documented as of this encounter
--- OUTSIDE RECORDS SUMMARY | 2024-06-26 02:11 | XMS_ITS | Encounter Summary ---
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
--- OUTSIDE RECORDS SUMMARY | 2024-06-26 02:11 | XMS_ITS | Encounter Summary ---
Author Organization [facility] Address [address] [place] [address] Phone Care Team Providers Care Organic Gardening Teacher Name Role Phone Julio César Briseno MD Primary Care Provider [phone] Eren Cr MD Unavailable Yohana Bowen MD Unavailable Sabrina Willard NP Unavailable Encounter Details Date Type Department Care Team (Late st Contact Info) Description 05/24/2021 Orders Only [facility] Oncology [address] [facility] Advanced Medicine 7th [place] [address] [place] [address] Eren Cr MD [address] [facility] [address] [place] [address] Social History Tobacco Use Types Packs/Day Years [...] file 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
--- OUTSIDE RECORDS SUMMARY | 2024-06-26 02:11 | XMS_ITS | Encounter Summary ---
Author Organization [facility] Address [address] [place] [address] Phone Care Team Providers Care Video Game Developer Name Role Phone Julio César Briseno MD Primary Care Provider [phone] Eren Cr MD Unavailable [phone] Yohana Bowen MD Unavailable Sabrina Willard NP Unavailable [phone] Reason for Visit * Episode Based Medications (Routine) - Authorized Specialty Diagnoses / Procedures Referred By Contac t Referred To Contact Oncology Diagnoses 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) Procedures [place] DENOSUMAB INJECTION DENOSUMAB (XGEVA) Eren Cr MD [address] [facility] [address] [place] [address] Phone: tel: fax: [facility] at [facility] and [facility] [address] [facility] Advanced [facility] 7th [place] [address] Phone: tel: Referral ID Status Reason Start Date Expiration Date V isits Requested Visits Authorized [id number] Authorized 03/02/2019 10/06/2024 1 60 Encounter Details Date Type Department Care Team (Late st Contact Info) Description 03/17/2021 8:30 AM CDT Infusion [facility] Oncology [address] [facility] 7th [place] [address] Neuro-endocrine carcinoma (CMS/HCC) (HCC) (Primary Dx); Bone [...] on file 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 Gender Identity Not on file Sexual Orientation [...] 03/17/2021 8:30 AM CDT Oncology Nursing Note [facility] La Chung is a [...] First Orde red Date ONCBCN NURSING COMMUNICATION [id number] 1 0 03/17/2021 PHYSICIAN COMMUNICATION ORDER 1 03/17/2021 Appointment Requests Count Last Ordered Date Fi rst Ordered Date ONCBCN INFUSION APPT REQUEST 1 03/17/2021 documented in this encounter Care Teams Video Game Developer Relationship Specialty Start Date End Date Julio César Briseno MD PCP - General 10/01/16 Eren Cr MD Referring Physician Medical Oncology 11/25/18 Yohana Bowen MD Radiation Oncologist Radiation Oncology 11/25/18 Sabrina Willard NP [address] [place] [address] Nurse Practitioner Medical Oncology 08/17/20 11/26/21 documented as of this encounter
--- OUTSIDE RECORDS SUMMARY | 2024-06-26 02:11 | XMS_ITS | Encounter Summary ---
Author Organization [facility] Address [address] [place] [address] Phone Care Team Providers Care Contact Center Specialist Name Role Phone Julio César Briseno MD Primary Care Provider Eren Cr MD Unavailable Yohana Bowen MD Unavailable Sabrina Willard NP Unavailable Encounter Details Date Type Department Care Team (Late st Contact Info) Description 06/07/2021 Orders Only [facility] Oncology [address] [facility] Advanced Medicine 7th [place] [address] [place] [address] Eren Cr MD [address] [facility] [address] [place] [address] Social History Tobacco Use Types Packs/Day Years [...] file 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 Gender Identity Not on file Sexual Orientation Straight 02/19/2021 9: 29 AM CDT Occupation Industry Job Start Date Job End Date retired Not on file Not on file Not on file documented as of this encounter Plan of Treatment Not on file documented as of this encounter Visit Diagnoses Not on filedocumented in this encounter Care Teams Contact Center Specialist Relationship Specialty Start Date End Date Julio César Briseno MD PCP - General 10/01/16 Eren Cr MD Referring Physician Medical Oncology 11/25/18 Yohana Bowen MD Radiation Oncologist Radiation Oncology 11/25/18 Sabrina Willard NP [address] [place] [address] Nurse Practitioner Medical Oncology 08/17/20 11/26/21 documented as of this encounter
--- OUTSIDE RECORDS SUMMARY | 2024-06-26 02:11 | XMS_ITS | Encounter Summary ---
Author Organization [facility] Address [address] [place] [address] Phone Care Team Providers Care See Supervisor Name Role Phone Julio César Briseno MD Primary Care Provider Eren Cr MD Unavailable [phone] Yohana Bowen MD Unavailable Sabrina Willard NP Unavailable [phone] Encounter Details Date Type Department Care Team (Late st Contact Info) Description 03/23/2021 4:00 PM CDT Infusion [facility] Oncology [address] [facility] Advanced Medicine 7th [place] [address] Social History Tobacco Use Types Packs/Day Years [...] file 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
--- OUTSIDE RECORDS SUMMARY | 2024-06-26 02:12 | XMS_ITS | Encounter Summary ---
Author Organization [facility] Healthcare Address [address] [place] [address] Care Team Providers Care Safety Spec Name Role Phone Julio César Briseno MD Primary Care Provider [phone] Eren Cr MD Unavailable [phone] Yohana Bowen MD Unavailable Sabrina Willard NP Unavailable [phone] Reason for Referral * Diagnostic Imaging (Routine) - Closed Specialty Diagnoses / Procedures Referred By Contac t Referred To Contact Diagnoses Closed displaced fracture of head of right radius with routine healing, subsequent encounter Procedures XR Elbow Right 2 Views Lu Garcia MD Phone: tel: [facility] Referral ID Status Reason Start Date Expiration Date Visits Re quested Visits Authorized [id number] Closed 02/14/2021 03/16/2022 1 1 Reason for Visit * Diagnostic Imaging (Routine) - Closed Specialty Diagnoses / Procedures Referred By Contac t Referred To Contact Diagnoses Closed displaced fracture of head of right radius with routine healing, subsequent encounter Procedures XR Elbow Right 2 Views Lu Garcia MD Phone: tel: [facility] Referral ID Status Reason Start Date Expiration Date Visits Re quested Visits Authorized [id number] Closed 02/14/2021 03/16/2022 1 1 Encounter Details Date Type Department Care Team (Latest Contact Info) Description 02/15/2021 9:30 AM CDT - 02/15/2021 11:59 PM CDT Hospital Encounter [facility] [address] [place] [address] Lu Garcia MD [address] [place] [address] Closed displaced fracture of head of right [...] on file Legal Sex Female 2: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 11/23/2020 [facility] Patient has colostomy and needs Cavilon 3M skin barrier film to manage. 20 each 6 09/21/2019 simvastatin (ZOCOR) 20 mg tablet Take 1 tablet (20 mg total) by mouth nightly ascorbic acid, vitamin C, 500 mg capsuleIndications :supplement Take 1 tablet by mouth doctor of nurse anesthesia before breakfast 07/04/2016 4 cholecalciferol (VITAMIN D-3) 2,000 unit capsule Take 1 capsule (2,000 Units total) by mouth daily 30 capsule 2 04/25/2019 3 cholestyramine (QUESTRAN) 4 gram packet Take 1 packet by mouth 3 (three) times a day with meals 270 packet 3 09/04/2019 2 clotrimazole-betam ethasone (LOTRISONE) cream Apply 1 Application topically daily as needed (rash) 4 coenzyme [id number] 100-5 mg-unit capsuleIndications :supplement Take 1 tablet by mouth doctor of nurse anesthesia before breakfast 4 denosumab (XGEVA) 120 mg/1.7 [...] encounter documented in this encounter Care Teams Safety Spec Relationship Specialty Start Date End Date Julio César Briseno MD PCP - General 10/01/16 Eren Cr MD Referring Physician Medical Oncology 11/25/18 Yohana Bowen MD Radiation Oncologist Radiation Oncology 11/25/18 Sabrina Willard NP [address] [place] [address] Nurse Practitioner Medical Oncology 08/17/20 11/26/21 documented as of this encounter
--- OUTSIDE RECORDS SUMMARY | 2024-06-26 02:12 | XMS_ITS | Encounter Summary ---
Author Organization [facility] Address [address] [place] [address] Phone Care Team Providers Care Entry Analyst Name Role Phone Julio César Briseno MD Primary Care Provider [phone] Eren Cr MD Unavailable [phone] Yohana Bowen MD Unavailable Sabrina Willard NP Unavailable [phone] Encounter Details Date Type Department Care Team (Late st Contact Info) Description 02/06/2021 1:30 PM CDT Lab [facility] Oncology [facility] Advanced Medicine 7th [place] [address] [place] [address] Neuroendocrine carcinoma (CMS/HCC) (HCC); Malignant neoplasm metastatic [...] file Legal Sex Female 2:41 PM EDUCATION LIAISON Gender Identity Not on file Sexual [...] mmol/L [facility] Comment:Testing performed by : [facility], [address] [place] [phone] Potassium, pl 4.1 3.3 - 4.9 mmol/L [facility] Comment:Testing performed by : [facility], [address] [place] [phone] Chloride 105 97 - 110 mmol/L [facility] Comment:Testing performed by : [facility], [address] [place] [phone] CO2 28 22 - 32 mmol/L [facility] Comment:Testing performed by : [address] [phone] Anion gap 5 2 - 15 mmol/L [facility] Comment:Testing performed by : [address] [phone] BUN 10 8 - 25 mg/dL [facility] Comment:Testing performed by : [facility], [address] [place] [phone] Creatinine 0.83 0.60 - 1.10 mg/dL [facility] Comment:Testing performed by : [facility], [address] [place] [phone] Glucose 131 70 - 199 mg/dL CERNER [...] was last revised 2017. Testing performed by: [facility], [address] [place] [phone] Calcium 10.7(H) 8.5 - 10.3 mg/dL [facility] Comment:Testing performed by : [facility], [address] [place] [phone] Bilirubin, total 0.4 0.1 - 1.2 mg/dL [facility] Comment:Testing performed by : [facility], [address] [place] [phone] Protein, pl 6.6 6.5 - 8.5 g/dL [facility] Comment:Testing performed by : [facility], [address] [place] [phone] Albumin 4.0 3.5 - 5.0 g/dL [facility] Comment:Testing performed by : [facility], [address] [place] [phone] Alk phos 148(H) 40 - 130 Units/L [facility] Comment:Testing performed by : [facility], [address] [place] [phone] ALT 31 7 - 45 Units/L [facility] Comment:Testing performed by : [facility], [address] [place] [phone] AST 35 10 - 45 Units/L [facility] Comment:Testing performed by : 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) Bone metastasis Secondary malignant neoplasm of bone and bone marrow documented in this encounter Orders Appointment Requests Count Last Ordered Date Fi rst Ordered Date ONCBCN LAB APPOINTMENT 1 02/06/2021 documented in this encounter Care Teams Entry Analyst Relationship Specialty Start Date End Date Julio César Briseno MD PCP - General 10/01/16 Eren Cr MD Referring Physician Medical Oncology 11/25/18 Yohana Bowen MD Radiation Oncologist Radiation Oncology 11/25/18 Sabrina Willard NP [address] [place] [address] Nurse Practitioner Medical Oncology 08/17/20 11/26/21 documented as of this encounter
--- OUTSIDE RECORDS SUMMARY | 2024-06-26 02:12 | XMS_ITS | Encounter Summary ---
Author Organization [facility] Address [address] [place] [address] Phone Care Team Providers Care Newspaper Carriers Supervisor Name Role Phone Julio César Briseno MD Primary Care Provider Eren Cr MD Unavailable [phone] Yohana Bowen MD Unavailable Sabrina Willard NP Unavailable [phone] Reason for Visit * Reason Onset Date Comments Lab Results 02/06/2021 Encounter Details Date Type Department Care Team (Late st Contact Info) Description 02/06/2021 Telephone [facility] Oncology [address] [facility] Advanced Medicine 7th [place] [address] [place] [address] Eren Cr MD [address] [facility] [address] [place], [place] [id number] Lab Results Social History Tobacco Use Types Packs/Day Years Used Date Smoking Tobacco: Never Smokeless Tobacco: Never Alcohol Use Standard Drinks/Week Comments Yes 1 (1 standard drink = 0.6 oz pur e alcohol) Comments No Sex and Gender Information Value Date Recorded Sex Assigned at Not on file 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
--- OUTSIDE RECORDS SUMMARY | 2024-06-26 02:12 | XMS_ITS | Encounter Summary ---
Author Organization [facility] Address [address] [place] [address] Phone Care Team Providers Care Health And Wellness Manager Name Role Phone Julio César Briseno MD Primary Care Provider Eren Cr MD Unavailable [phone] Yohana Bowen MD Unavailable Sabrina Willrad NP Unavailable [phone] Encounter Details Date Type Department Care Team (Late st Contact Info) Description 02/13/2021 1:30 PM CDT Lab [facility] Oncology [address] [facility] Advanced Medicine 7th [place] [address] [place] [address] Neuroendocrine carcinoma (CMS/HCC) (HCC); Malignant [...] on file Legal Sex Female 2:41 PM 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 RELATIONS ADVISER Gender Identity Not on file Sexual [...] 90 - 130 mL/min/1.7 3 m2 [facility] Comment: Interpretive [...] was last reviewed 2020 Testing performed by: [facility], [address] [place] [phone] Blood specimen (specimen) 02/13/2021 1:13 PM CDT 02/13/2021 1:15 PM CDT us Eren Cr MD LAB BLOOD ORDERABLES Final Re sult [facility] One [facility] [place] [address] * (ABNORMAL) Differential, auto (02/13/2021 1:13 PM CDT) Neutrophil abs 2.7 1.8 - 6.6 K/cumm [facility] Comment:Testing performed by : [facility], [address] [place] [phone] Lymphocyte abs 0.4(L) 1.2 - 3.3 K/cumm [facility] Comment:Testing performed by : [facility], [address] [place] [phone] Monocyte abs 0.8 0.2 - 1.2 K/cumm [facility] Comment:Testing performed by : [facility], [address] [place] [phone] Eosinophil abs 0.1 0.0 - 0.5 K/cumm [facility] Comment:Testing performed by : [facility], [address] [place] [phone] Basophil abs 0.0 0.0 - 0.2 K/cumm [facility] Comment:Testing performed by : [facility], [address] [place] [phone] Neutrophil pct 67.9 % [facility] Comment: Interpretive Data Percent cell count reference ranges are not reported, since discordance with absolute values may lead to misinterpretation of CBC data. Current Interpretive Data was last revised on 2017. Testing performed by: [facility], [address] [place] [phone] Lymphocyte pct 9.7 % [facility] Comment: Interpretive Data Percent cell count reference ranges are not reported, since discordance with absolute values may lead to misinterpretation of CBC data. Current Interpretive Data was last revised on 2017. Testing performed by: [facility], [address] [place] [phone] Monocyte pct 19.1 % [facility] Comment:Testing performed by : [facility], [address] [place] [phone] Eosinophil pct 2.8 % [facility] Comment:Testing performed by : [facility], [address] [place] [phone] Basophil pct 0.5 % [facility] Comment:Testing performed by : [facility], [address] [place] [phone] Blood specimen (specimen) 02/13/2021 1:13 PM CDT 02/13/2021 1:15 PM CDT Eren Cr MD LAB BLOOD ORDERABLES Final Re sult [facility] One [facility] Department [place] [address] * (ABNORMAL) CBC with auto differential (02/13/2021 1:13 PM CDT) WBC 4.0 3.8 - 9.8 K/cumm [facility] Comment:Testing performed by : [facility], [address] [place] [phone] Hgb 12.2 12.1 - 15.1 g/dL [facility] Comment:Testing performed by : [facility], [address] [place] [address] Hct 34.7(L) 36.1 - 44.3 % [facility] Comment:Testing performed by : [facility], [address] [place] [address] Plt 121(L) 140 - 440 K/cumm [facility] Comment:Testing performed by : [facility], [address] [place] [address] MPV 7.9 6.8 - 10.4 fL [facility] Comment:Testing performed by : [place] [address] RBC 3.91 3.90 - 5.00 M/cumm [facility] Comment:Testing performed by : [place] [address] MCV 88.6 80.0 - 97.6 fL [facility] Comment:Testing performed by : [facility], [address] [place] [address] MCH 31.3 26.7 - 33.7 pg [facility] Comment:Testing performed by : [place] [address] MCHC 35.3 32.7 - 35.5 g/dL [facility] Comment:Testing performed by : [place] [address] RDW CV 13.0 11.8 - 14.6 % [facility] Comment:Testing performed by : [place] [phone] NRBC abs 0.00 0.00 - 0.01 K/cumm [facility] Comment:Testing performed by : [place] [address] Blood specimen (specimen) 02/13/2021 1:13 PM CDT 02/13/2021 1:15 PM CDT Erne Cr MD LAB BLOOD ORDERABLES Final Re sult [facility] One [facility] Department [place] [address] * (ABNORMAL) Comprehensive metabolic panel (02/13/2021 1:13 PM CDT) Sodium 139 135 - 145 mmol/L [facility] Comment:Testing performed by : [facility], [address] [place] [phone] Potassium, pl 4.0 3.3 - 4.9 mmol/L [facility] Comment:Testing performed by : [facility], [address] [place] [phone] Chloride 102 97 - 110 mmol/L [facility] Comment:Testing performed by : [facility], [address] [place] [phone] CO2 31 22 - 32 mmol/L [facility] Comment:Testing performed by : [facility], [address] [place] [phone] Anion gap 6 2 - 15 mmol/L [facility] Comment:Testing performed by : [facility], [address] [place] [phone] BUN 13 8 - 25 mg/dL [facility] Comment:Testing performed by : [facility], [address] [place] [phone] Creatinine 0.85 0.60 - 1.10 mg/dL [facility] Comment:Testing performed by : [facility], [address] [place] [phone] Glucose 134 70 - 199 mg/dL [facility] Comment: Interpretive Data Fasting [...] revised 2017. Testing performed by: [facility], [address] [place] [phone] Calcium 11.0(H) 8.5 - 10.3 mg/dL [facility] Comment:Testing performed by : [facility], [address] [place] [phone] Bilirubin, total 0.4 0.1 - 1.2 mg/dL [facility] Comment:Testing performed by : [facility], [address] [place] [phone] Protein, pl 7.2 6.5 - 8.5 g/dL [facility] Comment:Testing performed by : [facility], [address] [place] [phone] Albumin 4.1 3.5 - 5.0 g/dL [facility] Comment:Testing performed by : [facility], [address] [place] [phone] Alk phos 174(H) 40 - 130 Units/L [facility] Comment:Testing performed by : [facility], [address] [place] [phone] ALT 28 7 - 45 Units/L [facility] Comment:Testing performed by : [facility], [address] [place] [phone] AST 36 10 - 45 Units/L [facility] Comment:Testing performed by : [facility], [address] [place] [phone] Blood specimen (specimen) 02/13/2021 1:13 PM CDT 02/13/2021 1:15 PM CDT us Eren Cr MD LAB BLOOD ORDERABLES Final Re sult [facility] [place] [address] documented in this encounter Visit Diagnoses Diagnosis Neuroendocrine carcinoma (HCC) Other malignant neoplasm of unspecified site 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) Bone metastasis Secondary malignant neoplasm of bone and bone marrow documented in this encounter Orders Appointment Requests Count Last Ordered Date Fi rst Ordered Date ONCBCN LAB APPOINTMENT 1 02/13/2021 documented in this encounter Care Teams Health And Wellness Manager Relationship Specialty Start Date End Date Julio César Briseno MD PCP - General 10/01/16 Eren Cr MD Referring Physician Medical Oncology 11/25/18 Yohana Bowen MD Radiation Oncologist Radiation Oncology 11/25/18 Sabrina Willard NP [address] [place] [address] Nurse Practitioner Medical Oncology 08/17/20 11/26/21 documented as of this encounter
--- OUTSIDE RECORDS SUMMARY | 2024-06-26 02:12 | XMS_ITS | Encounter Summary ---
Author Organization [facility] Address [address] [place] [address] Phone Care Team Providers Care Cash Applications Coordinator Name Role Phone Julio César Briseno MD Primary Care Provider Eren Cr MD Unavailable [phone] Yohana Bowen MD Unavailable Sabrina Willard NP Unavailable [phone] Encounter Details Date Type Department Care Team (Late st Contact Info) Description 01/30/2021 5:00 PM CDT Infusion [facility] Oncology [address] [facility] Advanced Medicine 7th [place] [address] Social History Tobacco Use Types Packs/Day Years Used Date Smoking Tobacco: Never Smokeless Tobacco: Never Alcohol Use Standard Drinks/Week Comments Yes 1 (1 standard drink = 0.6 oz pur e alcohol) Comments No Sex and Gender Information Value Date Recorded Sex Assigned at Not on file 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
--- OUTSIDE RECORDS SUMMARY | 2024-06-26 02:12 | XMS_ITS | Encounter Summary ---
Author Organization [facility] Address [address] [place] [address] Phone Care Team Providers Care Pantry Worker Name Role Phone Julio César Briseno MD Primary Care Provider [phone] Eren Cr MD Unavailable [phone] Yohana Bowen MD Unavailable Sabrina Willard NP Unavailable [phone] Reason for Visit * Reason Comments Initial Consult * Consultation (Routine) - Closed Specialty Diagnoses / Procedures Referred By Evelyne bowman Referred To Contact Surgical Oncology Diagnoses Nipple discharge in female Oksana Rivas NP Phone: tel: fax: [facility] (All Locations) Referral ID Status Reason Start Date Expiration Date V isits Requested Visits Authorized [id number] Closed Specialty Services Required 01/26/2021 02/25/2022 1 1 Encounter Details Date Type Department Care Team (Late st Contact Info) Description 02/16/2021 2:40 PM CDT Office Visit [facility] Surgery [address] 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 TECHNICAL SERVICES ANALYST HISTORY: Patient underwent menarche at age 11. [...] 4 gram packet clotrimazole-betamethasone (LOTRISONE) cream coenzyme [id number] E (CO Q-10, WITH VIT E,) 100-5 [...] This note is dictated and transcribed by [employer]. Network Development Coordinator variances may occur. Despite proofreading, typographical errors [...] 021 documented in this encounter Care Teams Pantry Worker Relationship Specialty Start Date End Date Julio César Briseno MD PCP - General 10/01/16 Eren Cr MD Referring Physician Medical Oncology 11/25/18 Yohana Bowen MD Radiation Oncologist Radiation Oncology 11/25/18 Sabrina Willard NP [address] [place] [address] Nurse Practitioner Medical Oncology 08/17/20 11/26/21 documented as of this encounter
--- OUTSIDE RECORDS SUMMARY | 2024-06-26 02:12 | XMS_ITS | Encounter Summary ---
Author Organization [facility] Address [address] [place] [address] Care Team Providers Care Director Of Career Services Name Role Phone Julio César Briseno MD Primary Care Provider [phone] Eren Cr MD Unavailable [phone] Yohana Bowen MD Unavailable Sabrina Willard NP Unavailable [phone] Reason for Visit * Reason Comments OP Infusion * Episode Based Medications (Routine) - Authorized Specialty Diagnoses / Procedures Referred By Contac t Referred To Contact Oncology Diagnoses 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) Procedures ID DENOSUMAB INJECTION DENOSUMAB (XGEVA) Eren Cr MD [address] [place] [address] Phone: tel: fax: [facility] [address] [facility] Advanced Medicine 7th [place] [address] Phone: tel: Referral ID Status Reason Start Date Expiration Date V isits Requested Visits Authorized [id number] Authorized 03/02/2019 10/06/2024 1 60 Encounter Details Date Type Department Care Team (Latest Contact Info) Description 02/13/2021 4:05 PM CDT - 02/13/2021 11:59 PM CDT Hospital Encounter [facility] Advanced Medicine ([facility]) [address] [place] [address] Eren Cr MD [address] [facility] [address] [place] [address] Bone metastasis (CMS/HCC) (HCC) (Primary Dx); Neuro-endocrine [...] on file Legal Sex Female 2:41 PM PACU NURSE Gender Identity Not on file Sexual [...] the week, on weekends and holidays, call [phone] and ask to have the Power Washer Physician paged for you. Saturday through Saturday, 8 AM to 4:30 PM, call [phone] [facility] Oncology Physician at [facility] and ask for a member [...] capsuleIndications :supplement Take 1 tablet by mouth sausage inspector before breakfast 07/04/2016 4 cholecalciferol (VITAMIN D-3) 2,000 unit capsule Take 1 capsule (2,000 Units total) by mouth daily 30 capsule 2 04/25/2019 3 cholestyramine (QUESTRAN) 4 gram packet Take 1 packet by mouth 3 (three) times a day with meals 270 packet 3 09/04/2019 2 clotrimazole-betam ethasone (LOTRISONE) cream Apply 1 Application topically daily as needed (rash) 4 coenzyme B29-lyrggio E 100-5 mg-unit capsuleIndications :supplement Take 1 tablet by mouth sausage inspector before breakfast 4 denosumab (XGEVA) 120 mg/1.7 [...] 02/13/2021 5:00 PM CDT Patient arrived to [facility] for IVF. Plan [...] 02/13/2021 documented in this encounter Care Teams Director Of Career Services Relationship Specialty Start Date End Date Julio César Briseno MD PCP - General 10/01/16 Eren Cr MD Referring Physician Medical Oncology 11/25/18 Yohana Bowen MD Radiation Oncologist Radiation Oncology 11/25/18 Sabrina Willard NP [address] [place] [address] Nurse Practitioner Medical Oncology 08/17/20 11/26/21 documented as of this encounter
--- OUTSIDE RECORDS SUMMARY | 2024-06-26 02:12 | XMS_ITS | Encounter Summary ---
Author Organization [facility] Address [address] [place] [address] Phone Care Team Providers Care Needle Felt Making Machine Operator Name Role Phone Julio César Briseno MD Primary Care Provider Eren Cr MD Unavailable [phone] Yohana Bowen MD Unavailable Sabrina Willard NP Unavailable [phone] Encounter Details Date Type Department Care Team (Late st Contact Info) Description 01/30/[address] 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
--- OUTSIDE RECORDS SUMMARY | 2024-06-26 02:12 | XMS_ITS | Encounter Summary ---
Author Organization [facility] Address [address] [place] [address] Phone Care Team Providers Care Manager Subway Name Role Phone Julio César Briseno MD Primary Care Provider [phone] Eren Cr MD Unavailable [phone] Yohana Bowen MD Unavailable Sabrina Willard NP Unavailable [phone] Reason for Visit * Oncology (Routine) - Closed Specialty Diagnoses / Procedures Referred By Contac t Referred To Contact Oncology Diagnoses Neuroendocrine carcinoma (HCC) Procedures ONCBCN ARM DRAW APPT ONC LAB ONLY Sabrina Willard, MECHANICAL PROJECT ENGINEER [address] [place] [address] Phone: tel: fax: Eren Cr MD [address] [facility] [address] [place] [address] Phone: tel: fax: Referral ID Status Reason Start Date Expiration Date V isits Requested Visits Authorized [id number] Closed Specialty Services Required 01/26/2021 02/25/2022 99 99 Encounter Details Date Type Department Care Team (Late st Contact Info) Description 01/30/2021 2:00 PM CDT Lab [facility] Oncology [address] [facility] 7th [address] [place] [address] Neuroendocrine carcinoma (CMS/HCC) (HCC); Malignant neoplasm metastatic to liver (CMS/HCC) (HCC) Social History Tobacco Use Types Packs/Day Years Used Date Smoking Tobacco: Never Smokeless Tobacco: Never Alcohol Use Standard Drinks/Week Comments Yes 1 (1 standard drink = 0.6 oz pur e alcohol) Comments No Sex and Gender Information Value Date Recorded Sex Assigned at Not on file 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 Gender Identity Not on file Sexual [...] K/cumm [facility] Comment:Testing performed by : [facility], [address] [place] [phone] Lymphocyte abs 0.5(L) 1.2 - 3.3 K/cumm [facility] Comment:Testing performed by : [facility], [address] [place] [phone] Monocyte abs 0.5 0.2 - 1.2 K/cumm [facility] Comment:Testing performed by : [facility], [address] [place] [phone] Eosinophil abs 0.2 0.0 - 0.5 K/cumm [facility] Comment:Testing performed by : [facility], [address] [place] [phone] Basophil abs 0.0 0.0 - 0.2 K/cumm [facility] Comment:Testing performed by : [facility], [address] [place] [phone] Neutrophil pct 63.6 % [facility] Comment: Interpretive Data Percent cell count reference ranges are not reported, since discordance with absolute values may lead to misinterpretation of CBC data. Current Interpretive Data was last revised on 2017. Testing performed by: [facility], [address] [place] [phone] Lymphocyte pct 15.4 % [facility] Comment: Interpretive Data Percent cell count reference ranges are not reported, since discordance with absolute values may lead to misinterpretation of CBC data. Current Interpretive Data was last revised on 2017. Testing performed by: [facility], [address] [place] [phone] Monocyte pct 15.1 % [facility] Comment:Testing performed by : [facility], [address] [place] [phone] Eosinophil pct 5.0 % [facility] Comment:Testing performed by : [facility], [address] [place] [phone] Basophil pct 0.9 % [facility] Comment:Testing performed by : [facility], [address] [place] [phone] Blood specimen (specimen) 01/30/2021 2:10 PM CDT 01/30/2021 2:12 PM CDT us Eren Cr MD LAB BLOOD ORDERABLES Final Re sult [facility] [place] [address] * (ABNORMAL) CBC with auto differential (01/30/2021 2:10 PM CDT) WBC 3.1(L) 3.8 - 9.8 K/cumm [facility] Comment:Testing performed by : [address] [phone] Hgb 13.7 12.1 - 15.1 g/dL [facility] Comment:Testing performed by : [facility], [address] [place] [phone] Hct 40.0 36.1 - 44.3 % [facility] Comment:Testing performed by : [address] [phone] Plt 92(L) 140 - 440 K/cumm [facility] Comment:Testing performed by : [address] [phone] MPV 8.2 6.8 - 10.4 fL [facility] Comment:Testing performed by : [address] [phone] RBC 4.34 3.90 - 5.00 M/cumm [facility] Comment:Testing performed by : [address] [address] MCV 92.1 80.0 - 97.6 fL [facility] Comment:Testing performed by : [address] [address] MCH 31.6 26.7 - 33.7 pg [facility] Comment:Testing performed by : [facility], [address] [place] [phone] MCHC 34.3 32.7 - 35.5 g/dL [facility] Comment:Testing performed by : [facility], [address] [place] [phone] RDW CV 13.1 11.8 - 14.6 % [facility] Comment:Testing performed by : [facility], [address] [place] [phone] NRBC abs 0.00 0.00 - 0.01 K/cumm [facility] Comment:Testing performed by : [facility], [address] [place] [phone] Blood specimen (specimen) 01/30/2021 2:10 PM CDT 01/30/2021 2:12 PM CDT Eren Cr MD LAB BLOOD ORDERABLES Final Re sult [facility] Department [place] [address] * (ABNORMAL) Comprehensive metabolic panel (01/30/2021 2:10 PM CDT) Sodium 136 135 - 145 mmol/L [facility] Comment:Testing performed by : [facility], [address] [place] [phone] Potassium, pl 4.5 3.3 - 4.9 mmol/L [facility] Comment:Testing performed by : [facility], [address] [place] [phone] Chloride 103 97 - 110 mmol/L [facility] Comment:Testing performed by : [facility], [address] [place] [phone] CO2 23 22 - 32 mmol/L [facility] Comment:Testing performed by : [facility], [address] [place] [phone] Anion gap 10 2 - 15 mmol/L [facility] Comment:Testing performed by : [facility], [address] [place] [phone] BUN 23 8 - 25 mg/dL [facility] Comment:Testing performed by : [facility], [address] [place] [phone] Creatinine 1.19(H) 0.60 - 1.10 mg/dL [facility] Comment:Testing performed by : [facility], [address] [place] [phone] Glucose 133 70 - 199 mg/dL CERNER [...] was last revised 2017. Testing performed by: [facility], [address] [place], [place] [phone] Calcium 10.4(H) 8.5 - 10.3 mg/dL [facility] Comment:Testing performed by : [facility], [address] [place] [phone] Bilirubin, total 0.3 0.1 - 1.2 mg/dL [facility] Comment:Testing performed by : [address] [phone] Protein, pl 7.2 6.5 - 8.5 g/dL [facility] Comment:Testing performed by : [facility], [address] [place] [phone] Albumin 4.3 3.5 - 5.0 g/dL [facility] Comment:Testing performed by : [address] [phone] Alk phos 120 40 - 130 Units/L [facility] Comment:Testing performed by : [place] [phone] ALT 28 7 - 45 Units/L [facility] Comment:Testing performed by : [facility], [address] [place] [phone] AST 35 10 - 45 Units/L [facility] Comment:Testing performed by : [facility], [address] [place] [phone] Blood specimen (specimen) 01/30/2021 2:10 PM CDT 01/30/2021 2:12 PM CDT Eren Cr MD LAB BLOOD ORDERABLES Final Re sult [facility] Department [place] [address] * (ABNORMAL) Chromogranin A (01/30/2021 2:10 PM CDT) Chromogranin A 1181(H) <93 ng/mL [facility] Comment: Impaired renal or hepatic [...] a homogeneous time-resolved immunofluorescent assay manufactured by [employer] and performed on the [employer] Kryptor Compact Plus. ? Values obtained with different assay methods or kits may be different and cannot be used interchangeably. ? Test results cannot be interpreted as absolute evidence for the presence or absence of malignant disease. Test Performed by: [facility] - [address] [address] Military Personnel Specialist: Immanuel Novak M.D. Ph.D.; CLIA# [id number] Blood specimen (specimen) 01/30/2021 2:10 PM CDT 01/30/2021 3:40 PM CDT Eren Cr MD LAB BLOOD ORDERABLES Final Re sult Performing Organization Address [facility] [place] [address] * Phosphorus (01/30/2021 2:10 PM CDT) Pathologist [facility] Phosphorus, pl 2.3 2.3 - 4.5 mg/dL [facility] Comment:Testing performed by : [facility], [address] [place] [phone] Blood specimen (specimen) 01/30/2021 2:10 PM CDT 01/30/2021 2:12 PM CDT Eren Cr MD LAB BLOOD ORDERABLES Final Re sult Performing Organization Address [facility] [place] [address] * Vitamin D 25 hydroxy (01/30/2021 2:10 PM CDT) [facility] Vitamin D 25-OH 30 30 - 80 ng/mL [facility] Blood specimen (specimen) 01/30/2021 2:10 PM CDT 01/30/2021 3:10 PM CDT Eren Cr MD LAB BLOOD ORDERABLES Edited R esult - Final Performing Organization Address [facility] [place] [address] documented in this encounter Visit Diagnoses Diagnosis Neuroendocrine carcinoma (HCC) Other malignant neoplasm of unspecified site Malignant neoplasm metastatic to liver (HCC) documented in this encounter Orders Outpatient Referral Count Last Ordered Date Fir st Ordered Date AMB REFERRAL TO ONCOLOGY 01/30/2021 Appointment Requests Count Last Ordered Date Fi rst Ordered Date ONCBCN LAB APPOINTMENT 1 01/30/2021 documented in this encounter Care Teams Manager Subway Relationship Specialty Start Date End Date Julio César Briseno MD PCP - General 10/01/16 Eren Cr MD Referring Physician Medical Oncology 11/25/18 Yohana Bowen MD Radiation Oncologist Radiation Oncology 11/25/18 Sabrina Willard NP [address] [place] [address] Nurse Practitioner Medical Oncology 08/17/20 11/26/21 documented as of this encounter
--- OUTSIDE RECORDS SUMMARY | 2024-06-26 02:12 | XMS_ITS | Encounter Summary ---
Author Organization [facility] Address [address] [place] [address] Phone Care Team Providers Care Lens Marker Name Role Phone Julio César Briseno MD Primary Care Provider Eren Cr MD Unavailable Yohana Bowen MD Unavailable Sabrina Willard NP Unavailable Encounter Details Date Type Department Care Team (Late st Contact Info) Description 02/13/2021 2:00 PM CDT Office Visit [facility] Oncology [facility] Advanced Medicine 7th [place] [address] [place] [address] Eren Cr MD [address] [facility] [address] [place] [address] Neuroendocrine carcinoma (CMS/HCC) (HCC) (Primary Dx); Malignant [...] 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
--- OUTSIDE RECORDS SUMMARY | 2024-06-26 02:12 | XMS_ITS | Encounter Summary ---
Author Organization [facility] Address [address] [place] [address] Phone Care Team Providers Care Certified Phlebotomy Technician Name Role Phone Julio César Briseno MD Primary Care Provider [phone] Eren Cr MD Unavailable [phone] Yohana Bowen MD Unavailable Sabrina Willard NP Unavailable [phone] Reason for Referral * Diagnostic Imaging (Routine) - Closed Specialty Diagnoses / Procedures Referred By Contac t Referred To Contact Diagnoses Closed displaced fracture of head of right radius with routine healing, subsequent encounter Procedures XR Elbow Right 2 Views Lu Garcia MD Phone: tel: [facility] Referral ID Status Reason Start Date Expiration Date Visits Re quested Visits Authorized [id number] Closed 02/14/2021 03/16/2022 1 1 Reason for Visit * Reason Comments Fracture Follow-up Encounter Details Date Type Department Care Team (Late st Contact Info) Description 02/15/2021 9:30 AM CDT Office Visit [facility] Orthopaedic Surgery [address] 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
--- OUTSIDE RECORDS SUMMARY | 2024-06-26 02:12 | XMS_ITS | Encounter Summary ---
Author Organization [facility] Address [address] [place] [address] Phone Care Team Providers Care Psychiatric Registered Nurse Name Role Phone Julio César Briseno MD Primary Care Provider [phone] Eren Cr MD Unavailable [phone] Yohana Bowen MD Unavailable Sabrina Willard NP Unavailable 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) Procedures IA OCTREOTIDE INJECTION, DEPOT Octreotide 28 Day Cycles - Carcinoid Eren Cr MD [address] [facility] [address] [place] [address] Phone: tel: fax: [facility] Cancer [address] [address] Phone: tel: fax: Referral ID Status Reason Start Date Expiration Date V isits Requested Visits Authorized [id number] Authorized 11/28/2017 02/05/2025 1 150 Encounter Details Date Type Department Care Team (Late st Contact Info) Description 01/30/2021 3:30 PM CDT Infusion [facility] Oncology [address] [facility] 7th [place] [address] Neuroendocrine carcinoma (CMS/HCC) (HCC) (Primary Dx); Malignant [...] on file 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 Gender Identity Not on file Sexual Orientation Straight 02/19/2021 9: 29 AM CDT Occupation Industry Job Start Date Job End Date retired Not on file Not on file Not on file documented as of this encounter Nursing Notes * Joelle Sabillon RN - 01/30/2021 3:30 PM CDT Oncology Nursing Note [facility] ONCOLOGY [...] First Orde red Date ONCBCN NURSING COMMUNICATION [id number] 01/30 ONCBCN NURSING COMMUNICATION [id number] 0 01/30/2021 PHYSICIAN COMMUNICATION ORDER 1 01/30/2021 Appointment Requests Count Last Ordered Date Fi rst Ordered Date ONCBCN INJECTION APPOINTMENT REQUEST 01/06 documented in this encounter Care Teams Psychiatric Registered Nurse Relationship Specialty Start Date End Date Julio César Briseno MD PCP - General 10/01/16 Eren Cr MD Referring Physician Medical Oncology 11/25/18 Yohana Bowen MD Radiation Oncologist Radiation Oncology 11/25/18 Sabrina Willard NP [address] [place] [address] Nurse Practitioner Medical Oncology 08/17/20 11/26/21 documented as of this encounter
--- OUTSIDE RECORDS SUMMARY | 2024-06-26 02:12 | XMS_ITS | Encounter Summary ---
Author Organization [facility] Address [address] [place] [address] Phone Care Team Providers Care Copy Messenger Name Role Phone Julio César Briseno MD Primary Care Provider [phone] Eren Cr MD Unavailable [phone] Yohana Bowen MD Unavailable Sabrina Willard NP Unavailable [phone] Reason for Referral * Diagnostic Imaging (Routine) - Closed Specialty Diagnoses / Procedures Referred By Contac t Referred To Contact Diagnoses Discharge from right nipple Procedures US Breast Right Limited US BREAST COMPLETE BILATERAL Oksana Rivas NP Phone: tel: fax: [facility] Referral ID Status Reason Start Date Expiration Date Visits Re quested Visits Authorized [id number] Closed 01/18/2021 02/17/2022 1 1 * Diagnostic Imaging (Routine) - Closed Specialty Diagnoses / Procedures Referred By Contac t Referred To Contact Diagnoses Discharge from right nipple Procedures Diagnostic Mammogram Bilateral W Seng Diagnostic Mammogram Right W Seng Oksana Rivas NP Phone: tel: fax: [facility] Referral ID Status Reason Start Date Expiration Date Visits Re quested Visits Authorized [id number] Closed 01/18/2021 02/17/2022 1 1 Reason for Visit * Reason Comments Follow-up Encounter Details Date Type Department Care Team (Late st Contact Info) Description 01/18/2021 2:00 PM CDT Office Visit [facility] Obstetrics and Gynecology [address] [facility] 13th [place] [address] [place] [address] Oksana Rivas NP [address] [id number] Discharge from right nipple (Primary Dx); Neuroendocrine carcinoma (CMS/HCC) (HCC) Social History Tobacco Use Types Packs/Day Years Used Date Smoking Tobacco: Never Smokeless Tobacco: Never Alcohol Use Standard Drinks/Week Comments Yes 1 (1 standard drink = 0.6 oz pur e alcohol) Comments No Sex and Gender Information Value Date Recorded Sex Assigned at Not on file 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 Greyson Reeves. Biopsy [...] mg capsule Take 1 tablet by mouth screw machine hand before breakfast ??? cholecalciferol (VITAMIN D-3) 2,000 unit capsule Take 1 capsule (2,000 Units total) by mouth daily (Patient taking differently: Take 2,000 Units by mouth daily ) 30 capsule 2 ??? cholestyramine (QUESTRAN) 4 gram packet Take 1 packet by mouth 3 (three) times a day with [id number] packet 3 ??? clotrimazole-betamethasone (LOTRISONE) cream clotrimazole-betamethasone 1 %- 0.05 % topical cream APPLY EXTERNALLY TO ABDOMEN TWICE DAILY NEEDED ??? coenzyme I11-oipjaah E (CO Q-10, WITH VIT E,) 100-5 mg-unit capsule Take by mouth early morningbefore breakfast ??? denosumab (XGEVA) 120 mg/1.7 mL (70 mg/mL) injection Inject under the skin every 30 (thirty) days ??? DULoxetine DR (CYMBALTA) 30 mg capsule Take 1 capsule (30 mg total) by mouth daily (Patient taking differently: Take 30 mg by mouth screw machine hand before breakfast ) 30 capsule 2 ??? [...] per tablet Take 0.5 tablets by mouth screw machine hand before breakfast decrease dosage to 0.5 tablet [...] signed by: SUZY RUSH MD Oksana Rivas CHEESE PACKER IMG MAMMO PROCEDURES Final Resu lt documented [...] 11/13/2021 added in this encounter Care Teams Copy Messenger Relationship Specialty Start Date End Date Julio César Briseno MD PCP - General 10/01/16 Eren Cr MD Referring Physician Medical Oncology 11/25/18 Yohana Bowen MD Radiation Oncologist Radiation Oncology 11/25/18 Sabrina Willard NP [address] [place] [address] Nurse Practitioner Medical Oncology 08/17/20 11/26/21 documented as of this encounter
--- OUTSIDE RECORDS SUMMARY | 2024-06-26 02:12 | XMS_ITS | Encounter Summary ---
Author Organization [facility] Address [address] [place] [address] Phone Care Team Providers Care Lard Mixer Name Role Phone Julio César Briseno MD Primary Care Provider Eren Cr MD Unavailable Yohana Bowen MD Unavailable Sabrina Willard NP Unavailable Encounter Details Date Type Department Care Team (Late st Contact Info) Description 02/21/2021 Orders Only [facility] Oncology [address] [facility] Advanced Medicine 7th [place] [address] [place] [id number] Eren Cr MD [address] [facility] [address] [place] [address] Malignant neoplasm metastatic to liver (CMS/HCC) (HCC) [...] file 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 ? Values obtained with different assay methods or kits may be different and cannot be used interchangeably. ? Test results cannot be interpreted as absolute evidence for the presence or absence of malignant disease. Test Performed by: [address] [address] Jac[employer] Loom Carpet Weaver: Immanuel Novak M.D. Ph.D.; CLIA# [id number] Blood 02/27/2021 8:11 AM CDT 02/27/2021 8:30 AM CDT us Eren Cr MD LAB BLOOD ORDERABLES Final Re sult JASON BLACK One [facility] Department [place] [address] * (ABNORMAL) Comprehensive metabolic panel (02/27/2021 8:11 AM CDT) Sodium 142 135 - 145 mmol/L CERNER BJ Comment:Testing performed by : [facility], [address] [place] [phone] Potassium, pl 4.4 3.3 - 4.9 mmol/L CERNER BJ Comment:Testing performed by : [address] [address] Chloride 103 97 - 110 mmol/L CERNER BJ Comment:Testing performed by : [facility], [address] [place] [phone] CO2 30 22 - 32 mmol/L CERNER BJ Comment:Testing performed by : [address] [address] Anion gap 9 2 - 15 mmol/L CERNER BJ Comment:Testing performed by : [address] [address] BUN 12 8 - 25 mg/dL CERNER BJ Comment:Testing performed by : [facility], [address] [place] [phone] Creatinine 0.95 0.60 - 1.10 mg/dL CERNER BJ Comment:Testing performed by : [address] [address] Glucose 155 70 - 199 mg/dL [facility] Comment: Interpretive Data Fasting [...] was last revised 2017. Testing performed by: [address] [address] Calcium 11.1(H) 8.5 - 10.3 mg/dL CERNER BJ Comment:Testing performed by : [facility], [address] [place] [phone] Bilirubin, total 0.5 0.1 - 1.2 mg/dL [facility] Comment:Testing performed by : [facility], [address] [place] [phone] Protein, pl 7.2 6.5 - 8.5 g/dL JASON BLACK Comment:Testing performed by : [facility], [address] [place] [phone] Albumin 4.4 3.5 - 5.0 g/dL JASON BLACK Comment:Testing performed by : [facility], [address] [place] [address] Alk phos 171(H) 40 - 130 Units/L [facility] Comment:Testing performed by : [facility], [address] [place] [phone] ALT 32 7 - 45 Units/L [facility] Comment:Testing performed by : [facility], [address] [place] [phone] AST 42 10 - 45 Units/L [facility] Comment:Testing performed by : [facility], [address] [place] [phone] Blood 02/27/2021 8:11 AM CDT 02/27/2021 8:15 AM CDT us Eren Cr MD LAB BLOOD ORDERABLES Final Re sult [facility] One [facility] Department [place] [address] * (ABNORMAL) CBC with auto differential (02/27/2021 8:11 AM CDT) WBC 3.4(L) 3.8 - 9.8 K/cumm JASON BLACK Comment:Testing performed by : [facility], [address] [place] [phone] Hgb 13.0 12.1 - 15.1 g/dL JASON BLACK Comment:Testing performed by : [facility], [address] [place] [phone] Hct 37.7 36.1 - 44.3 % CERMINNIE BJ Comment:Testing performed by : [facility], [address] [place] [phone] Plt 121(L) 140 - 440 K/cumm JASON BLACK Comment:Testing performed by : [facility], [address] [place], [place] [phone] MPV 8.5 6.8 - 10.[address] [facility] Comment:Testing performed by : [facility], [address] [place], [place] [phone] RBC 4.30 3.90 - 5.00 M/cumm [facility] Comment:Testing performed by : [place] [phone] MCV 87.6 80.0 - 97.[address] [facility] Comment:Testing performed by : [facility], [address] [place] [phone] MCH 30.2 26.7 - 33.[address] [facility] Comment:Testing performed by : [facility], [address] [place] [phone] MCHC 34.5 32.7 - 35.5 g/dL [facility] Comment:Testing performed by : [facility], [address] [place], [place] [phone] RDW CV 13.2 11.8 - 14.6 % [facility] Comment:Testing performed by : [address] [address] NRBC abs 0.00 0.00 - 0.01 K/cumm [facility] Comment:Testing performed by : [facility], [address] [place] [phone] Blood 02/27/2021 8:11 AM CDT 02/27/2021 8:15 AM CDT us Eren Cr MD LAB BLOOD ORDERABLES Final [facility] One [facility] Department [place] [address] * Vitamin D 25 hydroxy (02/27/2021 8:11 AM CDT) Pathologist [facility] Vitamin D 25-OH 33 30 - 80 ng/mL [facility] Blood 02/27/2021 8:11 AM CDT 02/27/2021 8:34 AM CDT us Eren Cr MD LAB BLOOD ORDERABLES Final Re sult Performing Organization Address [facility] Co de Phone Number [facility] Department [place] [address] * Phosphorus (02/27/2021 8:11 AM CDT) [facility] Phosphorus, pl 2.7 2.3 - 4.5 mg/dL [facility] Comment:Testing performed by : [facility], [address] [place] [phone] Blood 02/27/2021 8:11 AM CDT 02/27/2021 8:15 AM CDT us Eren Cr MD LAB BLOOD ORDERABLES Final Re sult Performing Organization Address [facility] de Phone Number [facility] Department [place] [address] * (ABNORMAL) Lipid panel (02/27/2021 8:11 AM CDT) [facility] Cholesterol 154 30 - 199 mg/dL [facility] Comment: Interpretive Data Ages < [...] on 2018. Triglycerides 255(H) <=149 mg/dL [facility] Comment: [...] on 2018. HDL 65 >=40 mg/dL [facility] Comment: [...] 2018. LDL, calculated 38 <=129 mg/dL [facility] Comment: [...] Final Re sult JASON BLACK One [facility] Department [place] [address] documented in this encounter Visit Diagnoses Diagnosis Malignant neoplasm metastatic to liver (HCC)- Primary Neuroendocrine carcinoma (HCC) Other malignant neoplasm of unspecified site documented in this encounter Care Teams Lard Mixer Relationship Specialty Start Date End Date Julio César Briseno MD PCP - General 10/01/16 Eren Cr MD Referring Physician Medical Oncology 11/25/18 Yohana Bowen MD Radiation Oncologist Radiation Oncology 11/25/18 Sabrina Willard NP [address] [place] [address] Nurse Practitioner Medical Oncology 08/17/20 11/26/21 documented as of this encounter
--- OUTSIDE RECORDS SUMMARY | 2024-06-26 02:12 | XMS_ITS | Encounter Summary ---
Author Organization [facility] Address [address] [place] [address] Care Team Providers Care Sheet Writer Name Role Phone Julio César Briseno MD Primary Care Provider [phone] Eren Cr MD Unavailable [phone] Yohana Bowen MD Unavailable Sabrina Willard NP Unavailable [phone] Reason for Referral * Diagnostic Imaging (Routine) - Closed Specialty Diagnoses / Procedures Referred By Evelyne bowman Referred To Contact Diagnoses Discharge from right nipple Procedures US Breast Right Limited US BREAST COMPLETE BILATERAL Oksana Rivas NP Phone: tel: fax: [facility] Referral ID Status Reason Start Date Expiration Date Visits Re quested Visits Authorized [id number] Closed 01/18/2021 02/17/2022 1 1 * Diagnostic Imaging (Routine) - Closed Specialty Diagnoses / Procedures Referred By Evelyne bowman Referred To Contact Diagnoses Discharge from right nipple Procedures Diagnostic Mammogram Bilateral W Seng Diagnostic Mammogram Right W Seng Oksana Rivas NP Phone: tel: fax: [facility] Referral ID Status Reason Start Date Expiration Date Visits Re quested Visits Authorized [id number] Closed 01/18/2021 02/17/2022 1 1 Reason for Visit * Diagnostic Imaging (Routine) - Closed Specialty Diagnoses / Procedures Referred By Evelyne t Referred To Contact Diagnoses Discharge from right nipple Procedures Diagnostic Mammogram Bilateral W Seng Diagnostic Mammogram Right W Seng Oksana Rivas NP Phone: tel: fax: [facility] Referral ID Status Reason Start Date Expiration Date Visits Re quested Visits Authorized [id number] Closed 01/18/2021 02/17/2022 1 1 Encounter Details Date Type Department Care Team (Latest Contact Info) Description 01/23/2021 9:02 AM CDT - 01/23/2021 11:59 PM CDT Hospital Encounter [facility] Advanced Medicine Breast [facility] Advanced [facility] ([facility]) [address] [place] [address] Jasbir Reeves [address] [place] [address] [place] [address] [place] [address] Discharge from right nipple Discharge Disposition: Discharge to home or self care Social History Tobacco Use Types Packs/Day Years Used Date Smoking Tobacco: Never Smokeless Tobacco: Never Alcohol Use Standard Drinks/Week Comments Yes 1 (1 standard drink = 0.6 oz pur e alcohol) Comments No Sex and Gender Information Value Date Recorded Sex Assigned at Not on file 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 11/23/2020 ostomy supplies [facility] Patient has colostomy and needs Cavilon 3M skin barrier film to manage. 20 each 6 09/21/2019 simvastatin (ZOCOR) 20 mg tablet Take 1 tablet (20 mg total) by mouth nightly ascorbic acid, vitamin C, 500 mg capsuleIndications :supplement Take 1 tablet by mouth placement interviewer before breakfast 07/04/2016 4 cholecalciferol (VITAMIN D-3) 2,000 unit capsule Take 1 capsule (2,000 Units total) by mouth daily 30 capsule 2 04/25/2019 3 cholestyramine (QUESTRAN) 4 gram packet Take 1 packet by mouth 3 (three) times a day with meals 270 packet 3 09/04/2019 2 clotrimazole-betam ethasone (LOTRISONE) cream Apply 1 Application topically daily as needed (rash) 4 coenzyme [id number] E 100-5 mg-unit capsuleIndications :supplement Take 1 tablet by mouth placement interviewer before breakfast 4 denosumab (XGEVA) 120 mg/1.7 [...] by: SUZY RUSH MD us Oksana Rivas NETBACKUP ENGINEER IMG MAMMO PROCEDURES Final Resu lt documented in this encounter Visit Diagnoses Diagnosis Discharge from right nipple documented in this encounter Care Teams Sheet Writer Relationship Specialty Start Date End Date Julio César Briseno MD PCP - General 10/01/16 Eren Cr MD Referring Physician Medical Oncology 11/25/18 Yohana Bowen MD Radiation Oncologist Radiation Oncology 11/25/18 Sabrina Willard NP [address] [place] [address] Nurse Practitioner Medical Oncology 08/17/20 11/26/21 documented as of this encounter
--- OUTSIDE RECORDS SUMMARY | 2024-06-26 02:12 | XMS_ITS | Encounter Summary ---
Author Organization [facility] Address [address] [place] [address] Phone Care Team Providers Care Landfill Gas Technician Name Role Phone Julio César Briseno MD Primary Care Provider [phone] Eren Cr MD Unavailable Yohana Bowen MD Unavailable Sabrina Willard NP Unavailable Encounter Details Date Type Department Care Team (Late st Contact Info) Description 02/20/2021 Orders Only [facility] Oncology [address] [facility] Advanced Medicine 7th [place] [address] [place] [address] Eren Cr MD [address] [facility] [address] [place] [address] Neuroendocrine carcinoma (CMS/HCC) (HCC) (Primary Dx); Diarrhea, [...] on file 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 Suggest redraw and reanalysis. Chloride 107 97 - 110 mmol/L [facility] CO2 25 22 - 32 mmol/L [facility] Anion gap 9 2 - 15 mmol/L [facility] BUN 16 8 - 25 mg/dL [facility] Creatinine 0.99 0.60 - 1.10 mg/dL [facility] Glucose 141 70 - 199 mg/dL [facility] Comment: [...] 2017. Calcium 9.9 8.5 - 10.3 mg/dL [facility] Bilirubin, total 0.3 0.1 - 1.2 mg/dL [facility] Protein, pl 6.7 6.5 - 8.5 g/dL [facility] Albumin 4.0 3.5 - 5.0 g/dL [facility] Alk phos 140(H) 40 - 130 Units/L [facility] ALT 42 7 - 45 Units/L [facility] AST 46(H) 10 - 45 Units/L [facility] Comment:Hemolyzed; result ma y be falsely elevated Blood 02/20/2021 1:37 PM CDT 02/20/2021 2:13 PM CDT Eren Cr MD LAB BLOOD ORDERABLES Final Re sult Performing Organization Address [facility]/ZIP Co de Phone Number [facility] [place] [address] * (ABNORMAL) CBC with auto differential (02/20/2021 1:37 PM CDT) Pathologist [facility] WBC 2.5(L) 3.8 - 9.9 K/cumm [facility] Hgb 11.6(L) 11.9 - 15.5 g/dL [facility] Hct 33.9(L) 35.6 - 45.5 % [facility] Plt 100(L) 150 - 400 K/cumm [facility] MPV 10.4 9.1 - 12.3 fL [facility] RBC 3.88(L) 3.90 - 5.20 M/cumm [facility] MCV 87.4 81.3 - 96.4 fL [facility] MCH 29.9 27.1 - 33.3 pg [facility] MCHC 34.2 32.3 - 35.7 g/dL [facility] RDW CV 12.4 11.1 - 14.9 % [facility] RDW SD 39.5 35.7 - 48.1 fL [facility] NRBC abs 0.00 0.00 - 0.01 K/cumm [facility] Blood 02/20/2021 1:37 PM CDT 02/20/2021 2:13 PM CDT Eren Cr MD LAB BLOOD ORDERABLES Final Re sult [facility] [place] [address] documented in this encounter Visit Diagnoses Diagnosis Neuroendocrine carcinoma (HCC)- Primary Other malignant neoplasm of unspecified site Diarrhea, unspecified type documented in this encounter Care Teams Landfill Gas Technician Relationship Specialty Start Date End Date Julio César Briseno MD PCP - General 10/01/16 Eren Cr MD Referring Physician Medical Oncology 11/25/18 Yohana Bowen MD Radiation Oncologist Radiation Oncology 11/25/18 Sabrina Willard NP [address] [place] [address] Nurse Practitioner Medical Oncology 08/17/20 11/26/21 documented as of this encounter
--- OUTSIDE RECORDS SUMMARY | 2024-06-26 02:12 | XMS_ITS | Encounter Summary ---
Author Organization [facility] Address [address] [place] [address] Phone Care Team Providers Care Marketing Operations Specialist Name Role Phone Julio César Briseno MD Primary Care Provider [phone] Eren Cr MD Unavailable [phone] Yohana Bowen MD Unavailable Sabrina Willard NP Unavailable [phone] 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) Procedures UT OCTREOTIDE INJECTION, DEPOT Octreotide 28 Day Cycles - Carcinoid Eren Cr MD [address] [facility] [address] [place] [address] Phone: tel: fax: [phone] [address] [address] Phone: tel: fax: Referral ID Status Reason Start Date Expiration Date V isits Requested Visits Authorized [id number] Authorized 11/28/2017 02/05/2025 1 150 Encounter Details Date Type Department Care Team (Late st Contact Info) Description 02/27/2021 8:15 AM CDT Lab [facility] Oncology [address] [facility] 7th [place] [address] [place] [address] Neuroendocrine carcinoma (CMS/HCC) (HCC); Malignant neoplasm metastatic [...] on file 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 Gender Identity Not on file Sexual [...] * (ABNORMAL) eGFR (02/27/2021 8:11 AM CDT) [facility] eGFR 60(L) 90 - 130 mL/min/1.7 [...] was last reviewed 2020 Testing performed by: [facility], [address] [place] [phone] Blood 02/27/2021 8:11 AM CDT 02/27/2021 8:15 AM CDT us Eren Cr MD LAB BLOOD ORDERABLES Final Re sult [facility] Department [place] [address] * (ABNORMAL) Differential, auto (02/27/2021 8:11 AM CDT) Neutrophil abs 2.3 1.8 - 6.6 K/cumm CERNER BJ Comment:Testing performed by : [facility], [address] [place] [phone] Lymphocyte abs 0.4(L) 1.2 - 3.3 K/cumm CERNER BJ Comment:Testing performed by : [facility], [address] [place] [phone] Monocyte abs 0.6 0.2 - 1.2 K/cumm CERNER BJ Comment:Testing performed by : [facility], [address] [place] [phone] Eosinophil abs 0.2 0.0 - 0.5 K/cumm CERNER BJ Comment:Testing performed by : [facility], [address] [place] [phone] Basophil abs 0.0 0.0 - 0.2 K/cumm CERNER BJ Comment:Testing performed by : [facility], [address] [place] [phone] Neutrophil pct 66.3 % [facility]ERNER BJ Comment: Interpretive Data Percent cell count reference ranges are not reported, since discordance with absolute values may lead to misinterpretation of CBC data. Current Interpretive Data was last revised on 2017. Testing performed by: [facility], [address] [place] [phone] Lymphocyte pct 10.7 % CERNER BJ Comment: Interpretive Data Percent cell count reference ranges are not reported, since discordance with absolute values may lead to misinterpretation of CBC data. Current Interpretive Data was last revised on 2017. Testing performed by: [facility], [address] [facility] [address] Monocyte pct 17.4 % JASON BLACK Comment:Testing performed by : [facility], [address] [facility] [address] Eosinophil pct 4.4 % JASON BLACK Comment:Testing performed by : [facility], [address] [facility] [phone] Basophil pct 1.2 % JASON BLACK Comment:Testing performed by : [facility], [address] [facility] [phone] Blood 02/27/2021 8:11 AM CDT 02/27/2021 8:15 AM CDT us Eren Cr MD LAB BLOOD ORDERABLES Final Re sult [facility] Department [place] [address] * (ABNORMAL) Lipid panel (02/27/2021 8:11 AM [...] on 2018. HDL 65 >=40 mg/dL [facility] Comment: [...] 2018. LDL, calculated 38 <=129 mg/dL [facility] Comment: Interpretive [...] on 2018. Non-HDL Cholesterol 89 mg/dL [facility] Comment: Interpretive [...] revised on 2018. Chol/HDL ratio 2 [facility] Blood 02/27/2021 8:11 AM CDT 02/27/2021 8:34 AM CDT Eren Cr MD LAB BLOOD ORDERABLES Final Re sult [facility] Department [place] [address] * Phosphorus (02/27/2021 8:11 AM CDT) Phosphorus, pl 2.7 2.3 - 4.5 mg/dL [facility] Comment:Testing performed by : [facility], [address] [place] [phone] Blood 02/27/2021 8:11 AM CDT 02/27/2021 8:15 AM CDT us Eren Cr MD LAB BLOOD ORDERABLES Final Re sult [facility] [place] [address] * Vitamin D 25 hydroxy (02/27/2021 8:11 AM CDT) Pathologist [facility] Vitamin D 25-OH 33 30 - 80 ng/mL [facility] Blood 02/27/2021 8:11 AM CDT 02/27/2021 8:34 AM CDT Eren Cr MD LAB BLOOD ORDERABLES Final Re sult Performing Organization Address [facility] Co de Phone Number [facility] [place] [address] * (ABNORMAL) CBC with auto differential (02/27/2021 8:11 AM CDT) [facility] WBC 3.4(L) 3.8 - 9.8 K/cumm [facility] Comment:Testing performed by : [facility], [address] [place] [phone] Hgb 13.0 12.1 - 15.1 g/dL [facility] Comment:Testing performed by : [facility], [address] [place] [phone] Hct 37.7 36.1 - 44.3 % [facility] Comment:Testing performed by : [facility], [address] [place] [phone] Plt 121(L) 140 - 440 K/cumm [facility] Comment:Testing performed by : [facility], [address] [place] [phone] MPV 8.5 6.8 - 10.4 fL [facility] Comment:Testing performed by : [facility], [address] [place] [phone] RBC 4.30 3.90 - 5.00 M/cumm JASON BLACK Comment:Testing performed by : [facility], [address] [place] [phone] MCV 87.6 80.0 - 97.6 fL [facility] BLACK Comment:Testing performed by : [facility], [address] [place] [phone] MCH 30.2 26.7 - 33.7 pg JASON BLACK Comment:Testing performed by : [facility], [address] [place] [phone] MCHC 34.5 32.7 - 35.5 g/dL [facility] Comment:Testing performed by : [facility], [address] [place] [phone] RDW CV 13.2 11.8 - 14.6 % [facility]ASON BLACK Comment:Testing performed by : [facility], [address] [place] [phone] NRBC abs 0.00 0.00 - 0.01 K/cumm JAS[facility] BLACK Comment:Testing performed by : [facility], [address] [place] [phone] Blood 02/27/2021 8:11 AM CDT 02/27/2021 8:15 AM CDT Eren Cr MD LAB BLOOD ORDERABLES Final Re sult [facility] Department [place] [address] * (ABNORMAL) Comprehensive metabolic panel (02/27/2021 8:11 AM CDT) Sodium 142 135 - 145 mmol/L JASON BLACK Comment:Testing performed by : [facility], [address] [place] [phone] Potassium, pl 4.4 3.3 - 4.9 mmol/L JASON BLACK Comment:Testing performed by : [address] [phone] Chloride 103 97 - 110 mmol/L JAOSN BLACK Comment:Testing performed by : [facility], [address] [place] [phone] CO2 30 22 - 32 mmol/L CERNER BJ Comment:Testing performed by : [facility], [address] [place] [phone] Anion gap 9 2 - 15 mmol/L [facility]J Comment:Testing performed by : [facility], [address] [place] [phone] BUN 12 8 - 25 mg/dL [facility]J Comment:Testing performed by : [facility], [address] [place] [phone] Creatinine 0.95 0.60 - 1.10 mg/dL [facility]J Comment:Testing performed by : [address] [address] Glucose 155 70 - 199 mg/dL CERNER [...] was last revised 2017. Testing performed by: [facility], [address] [place] [phone] Calcium 11.1(H) 8.5 - 10.3 mg/dL C[facility] BJ Comment:Testing performed by : [facility], [address] [place] [phone] Bilirubin, total 0.5 0.1 - 1.2 mg/dL [facility]J Comment:Testing performed by : [address] [phone] Protein, pl 7.2 6.5 - 8.5 g/dL CERN[facility] BJ Comment:Testing performed by : [address] [address] Albumin 4.4 3.5 - 5.0 g/dL CERNER BJ Comment:Testing performed by : [facility], [address] [place] [address] [place] [address] Alk phos 171(H) 40 - 130 Units/L [facility] Comment:Testing performed by : [facility], [address] [place] [phone] ALT 32 7 - 45 Units/L [facility] Comment:Testing performed by : [facility], [address] [place] [phone] AST 42 10 - 45 Units/L [facility] Comment:Testing performed by : [facility], [address] [place] [phone] Blood 02/27/2021 8:11 AM CDT 02/27/2021 8:15 AM CDT Eren Cr MD LAB BLOOD ORDERABLES Final Re sult [facility] Department [place] [address] * (ABNORMAL) Chromogranin A (02/27/2021 8:11 AM CDT) Chromogranin A 1087(H) <93 ng/mL [facility] Comment: Impaired renal or hepatic function or treatment with proton pump inhibitors may result in artifactual elevations of Chromogranin A. ADDITIONAL INFORMATION This test was developed and its performance characteristics determined by [facility] in a manner consistent with CLIA requirements. This test has not been cleared or approved by the U.S. Food and Drug Administration. The testing method is a homogeneous time-resolved immunofluorescent assay manufactured by [employer] and performed on the [employer]APITAN[employer] Kryptor Compact Plus. ? Values obtained with different assay methods or kits may be different and cannot be used interchangeably. ? Test results cannot be interpreted as absolute evidence for the presence or absence of malignant disease. Test Performed by: [address] [place] [address] [place]eller: Immanuel Novak M.D. 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
--- OUTSIDE RECORDS SUMMARY | 2024-06-26 02:12 | XMS_ITS | Encounter Summary ---
Author Organization [facility] Address [address] [place] [address] Phone Care Team Providers Care Correspondence Review Clerk Name Role Phone Julio César Briseno MD Primary Care Provider [phone] Eren Cr MD Unavailable [phone] Yohana Bowen MD Unavailable Sabrina Willard NP Unavailable [phone] Encounter Details Date Type Department Care Team (Late st Contact Info) Description 02/01/2021 Orders Only [facility] Oncology [address] [facility] 7th [place] [address] [place] [address] Eren Cr MD [address] [facility] [address] [place] [address] Social History Tobacco Use Types Packs/Day Years Used Date Smoking Tobacco: Never Smokeless Tobacco: Never Alcohol Use Standard Drinks/Week Comments Yes 1 (1 standard drink = 0.6 oz pur e alcohol) Comments No Sex and Gender Information Value Date Recorded Sex Assigned at Not on file 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 Gender Identity Not on file Sexual Orientation Straight 02/19/2021 9: 29 AM CDT Occupation Industry Job Start Date Job End Date retired Not on file Not on file Not on file documented as of this encounter Plan of Treatment Not on file documented as of this encounter Visit Diagnoses Not on filedocumented in this encounter Care Teams Correspondence Review Clerk Relationship Specialty Start Date End Date Julio César Briseno MD PCP - General 10/01/16 Eren Cr MD Referring Physician Medical Oncology 11/25/18 Yohana Bowen MD Radiation Oncologist Radiation Oncology 11/25/18 Sabrina Willard NP [address] [place] [address] Nurse Practitioner Medical Oncology 08/17/20 11/26/21 documented as of this encounter
--- OUTSIDE RECORDS SUMMARY | 2024-06-26 02:12 | XMS_ITS | Encounter Summary ---
Author Organization [facility] Address [address] [place] [address] Phone Care Team Providers Care Creative Writer Name Role Phone Julio César Briseno MD Primary Care Provider Eren Cr MD Unavailable Yohana Bowen MD Unavailable Sabrina Willard NP Unavailable [phone] Encounter Details Date Type Department Care Team (Late st Contact Info) Description 01/11/2021 Documentation 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 Social work spoke with stand grinder to discuss assistance for the medication Afinitor ([employer]). Application for assistance is pending with the stand grinder. Social Work will continue to follow to assist with this issue. Contact Information: LILI Shavonne ORDOÑEZ LCSW documented in this encounter Plan of Treatment Not on file documented as of this encounter Visit Diagnoses Not on filedocumented in this encounter Care Teams Creative Writer Relationship Specialty Start Date End Date Julio César Briseno MD PCP - General 10/01/16 Eren Cr MD Referring Physician Medical Oncology 11/25/18 Yohana Bowen MD Radiation Oncologist Radiation Oncology 11/25/18 Sabrina Willard NP [address] [place] [address] Nurse Practitioner Medical Oncology 08/17/20 11/26/21 documented as of this encounter
--- OUTSIDE RECORDS SUMMARY | 2024-06-26 02:12 | XMS_ITS | Encounter Summary ---
Author Organization [facility] Address [address] [place] [address] Phone Care Team Providers Care Tool Straightener Name Role Phone Julio César Briseno MD Primary Care Provider Eren Cr MD Unavailable Yohana Bowen MD Unavailable Sabrina Willard NP Unavailable [phone] Reason for Visit * Reason Onset Date Comments medication follow up 01/25/2021 Encounter Details Date Type Department Care Team (Late st Contact Info) Description 01/25/2021 Telephone [facility] Oncology [facility] 7th [place] [address] [place] [address] Eren Cr MD [facility] [address] [place] [address] medication follow up Social History Tobacco Use Types Packs/Day Years Used Date Smoking Tobacco: Never Smokeless Tobacco: Never Alcohol Use Standard Drinks/Week Comments Yes 1 (1 standard drink = 0.6 oz pur e alcohol) Comments No Sex and Gender Information Value Date Recorded Sex Assigned at Not on file 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 Patient states she received the medication and [...] on filedocumented in this encounter Care Teams Tool Straightener Relationship Specialty Start Date End Date Julio César Briseno MD PCP - General 10/01/16 Eren Cr MD Referring Physician Medical Oncology 11/25/18 Yohana Bowen MD Radiation Oncologist Radiation Oncology 11/25/18 Sabrina Willard NP [address] [place] [address] Nurse Practitioner Medical Oncology 08/17/20 11/26/21 documented as of this encounter
--- OUTSIDE RECORDS SUMMARY | 2024-06-26 02:12 | XMS_ITS | Encounter Summary ---
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 at [facility] [address] [facility] Advanced Medicine 7th [place] [address] Phone: tel: Referral ID Status Reason Start Date Expiration Date V isits Requested Visits Authorized [id number] Authorized 03/02/2019 10/06/2024 1 60 Encounter Details Date Type Department Care Team (Latest Contact Info) Description 02/20/2021 1:13 PM CDT - 02/20/2021 3:53 PM CDT Hospital Encounter [facility] Advanced Medicine ([facility]) [facility] [place] [address] Eren Cr MD [address] [facility] [address] [place] [address] Bone metastasis (CMS/HCC) (HCC) (Primary Dx); Neuro-endocrine [...] file Legal 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 07/04/2016 4 cholecalciferol (VITAMIN D-3) 2,000 unit capsule Take 1 capsule (2,000 Units total) by mouth daily 30 capsule 2 04/25/2019 3 cholestyramine (QUESTRAN) 4 gram packet Take 1 packet by mouth 3 (three) times a day with meals 270 packet 3 09/04/2019 2 clotrimazole-betam ethasone (LOTRISONE) cream Apply 1 Application topically daily as needed (rash) 4 coenzyme T05-yvleiip E 100-5 mg-unit capsuleIndications :supplement 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 4 denosumab (XGEVA) 120 mg/1.7 [...] 02/20/2021 1:48 PM CDT Pt arrived to [facility] for labs prior to IV fluid, accompanied [...] * (ABNORMAL) eGFR (02/20/2021 1:37 PM CDT) [facility] eGFR 57(L) 90 - 130 mL/min/1.7 3 m2 [facility] Comment: Interpretive Data Reference Interval Normal [...] Re sult [facility] Department [place] [address] * (ABNORMAL) Differential, auto (02/20/2021 1:37 PM CDT) Neutrophil abs 1.6(L) 1.7 - 6.5 K/cumm [facility] Imm gran abs 0.0 0.0 - 0.1 K/cumm [facility] Lymphocyte abs 0.2(L) 0.8 - 3.3 K/cumm [facility] Monocyte abs 0.6 0.2 - 0.8 K/cumm [facility] Eosinophil abs 0.1 0.0 - 0.5 K/cumm [facility] Basophil abs 0.0 0.0 - 0.1 K/cumm [facility] Neutrophil pct 64.3 % [facility] Comment: Interpretive Data Percent cell count reference ranges are not reported, since discordance with absolute values may lead to misinterpretation of CBC data. Current Interpretive Data was last revised on 2017. Imm gran pct 0.4 % [facility] Comment: Interpretive Data Percent cell count reference ranges are not reported, since discordance with absolute values may lead to misinterpretation of CBC data. Current Interpretive Data was last revised on 2017. Lymphocyte pct 9.1 % [facility] Comment: Interpretive Data Percent cell count reference ranges are not reported, since discordance with absolute values may lead to misinterpretation of CBC data. Current Interpretive Data was last revised on 2017. Monocyte pct 22.2 % [facility] Comment: Interpretive Data Percent cell count reference ranges are not reported, since discordance with absolute values may lead to misinterpretation of CBC data. Current Interpretive Data was last revised on 2017. Eosinophil pct 3.2 % [facility] Comment: Interpretive Data Percent cell count reference ranges are not reported, since discordance with absolute values may lead to misinterpretation of CBC data. Current Interpretive Data was last revised on 2017. Basophil pct 0.8 % [facility] Comment: Interpretive Data Percent cell count reference ranges are not reported, since discordance with absolute values may lead to misinterpretation of CBC data. Current Interpretive Data was last revised on 2017. Blood 02/20/2021 1:37 PM CDT 02/20/2021 2:13 PM CDT us Eren Cr MD LAB BLOOD ORDERABLES Final Re sult [facility] Department [place] [address] * (ABNORMAL) CBC with auto differential (02/20/2021 1:37 PM CDT) WBC 2.5(L) 3.8 - 9.9 K/cumm [facility] Hgb 11.6(L) 11.9 - 15.5 g/dL [facility] Hct 33.9(L) 35.6 - 45.5 % [facility] Plt 100(L) 150 - 400 K/cumm [facility] MPV 10.4 9.1 - 12.3 fL [facility] RBC 3.88(L) 3.90 - 5.20 M/cumm [facility] MCV 87.4 81.3 - 96.4 fL [facility] MCH 29.9 27.1 - 33.3 pg [facility] MCHC 34.2 32.3 - 35.7 g/dL [facility] RDW CV 12.4 11.1 - 14.9 % [facility] RDW SD 39.5 35.7 - 48.1 fL [facility] NRBC abs 0.00 0.00 - 0.01 K/cumm [facility] Blood 02/20/2021 1:37 PM CDT 02/20/2021 2:13 PM CDT Eren Cr MD LAB BLOOD ORDERABLES Final Re sult [facility] Department [place] [address] * (ABNORMAL) Comprehensive metabolic panel (02/20/2021 1:37 PM CDT) Sodium 141 135 - 145 mmol/L [facility] Potassium, pl 3.8 3.3 - 4.9 mmol/L [facility] Comment:Hemolyzed; Potassium value may be falsely elevated by as much as 0.3-0.5 mmol/L. Suggest redraw and reanalysis. Chloride 107 97 - 110 mmol/L [facility] CO2 25 22 - 32 mmol/L [facility] Anion gap 9 2 - 15 mmol/L [facility] BUN 16 8 - 25 mg/dL [facility] Creatinine 0.99 0.60 - 1.10 mg/dL [facility] Glucose 141 70 - 199 mg/dL [facility] [...] Calcium 9.9 8.5 - 10.3 mg/dL [facility] Bilirubin, total 0.3 0.1 - 1.2 mg/dL [facility] Protein, pl 6.7 6.5 - 8.5 g/dL [facility] Albumin 4.0 3.5 - 5.0 g/dL [facility] Alk phos 140(H) 40 - 130 Units/L [facility] ALT 42 7 - 45 Units/L [facility] AST 46(H) 10 - 45 Units/L [facility] Comment:Hemolyzed; result ma y be falsely elevated Blood 02/20/2021 1:37 PM CDT 02/20/2021 2:13 PM CDT Eren Cr MD LAB BLOOD ORDERABLES Final Re sult [facility] Department [place] [address] documented in this encounter Visit Diagnoses Diagnosis [...] 02/20 documented in this encounter Care Teams Enamel Finisher Relationship Specialty Start Date End Date Julio César Briseno MD PCP - General 10/01/16 Eren Cr MD Referring Physician Medical Oncology 11/25/18 Yohana Bowen MD Radiation Oncologist Radiation Oncology 11/25/18 Sabrina Willard NP [address] [place] [address] Nurse Practitioner Medical Oncology 08/17/20 11/26/21 documented as of this encounter
--- OUTSIDE RECORDS SUMMARY | 2024-06-26 02:12 | XMS_ITS | Encounter Summary ---
Author Organization [facility] Address [address] [place] [address] Phone Care Team Providers Care Laser Set Up Operator Name Role Phone Julio César Briseno MD Primary Care Provider [phone] Eren Cr MD Unavailable [phone] Yohana Bowen MD Unavailable Sabrina Willard NP Unavailable [phone] Reason for Visit * Oncology (Routine) - Closed Specialty Diagnoses / Procedures Referred By Contellen t Referred To Contact Oncology Diagnoses Neuroendocrine carcinoma (HCC) Sabrina Willard, CECILIA [address] [place] [address] Phone: tel: fax: Eren Cr MD [address] [facility] [address] [place] [address] Phone: tel: fax: Referral ID Status Reason Start Date Expiration Date V isits Requested Visits Authorized [id number] Closed Specialty Services Required 01/26/2021 02/25/2022 99 99 Encounter Details Date Type Department Care Team (Late st Contact Info) Description 01/30/2021 2:30 PM CDT Office Visit [facility] [address] [place] [address] [place] [address] Eren Cr MD [address] [facility] [address] [place] [address] Neuroendocrine carcinoma (CMS/HCC) (HCC) (Primary Dx); Malignant [...] on file 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 OR by Dr. Greyson Reeves. Biopsy [...] occasion.Spoke to Dr. Jasbir Reeves's office about this.Has had mammogram and it [...] No rashes over exposed skin NEURO: A&Ox4, graduate fellow grossly intact by conversation, moving all extremities [...] Cosigned by Eren Cr Jr., MD at 02/01/2021 11:59 AM CDT documented in this encounter Plan of Treatment Not on file documented as of this encounter Results * (ABNORMAL) Comprehensive metabolic panel (02/13/2021 1:13 PM CDT) Sodium 139 135 - 145 mmol/L [facility] Comment:Testing performed by : [facility], [address] [place] [phone] Potassium, pl 4.0 3.3 - 4.9 mmol/L [facility] Comment:Testing performed by : [facility], [address] [place] [phone] Chloride 102 97 - 110 mmol/L [facility] Comment:Testing performed by : [facility], [address] [place] [phone] CO2 31 22 - 32 mmol/L [facility] Comment:Testing performed by : [facility], [address] [place] [phone] Anion gap 6 2 - 15 mmol/L [facility] Comment:Testing performed by : [facility], [address] [place] [phone] BUN 13 8 - 25 mg/dL [facility] Comment:Testing performed by : [facility], [address] [place] [phone] Creatinine 0.85 0.60 - 1.10 mg/dL [facility] Comment:Testing performed by : [facility], [address] [place] [phone] Glucose 134 70 - 199 mg/dL [facility] [...] was last revised 2017. Testing performed by: [facility], [address] [place], [place] [phone] Calcium 11.0(H) 8.5 - 10.3 mg/dL [facility] Comment:Testing performed by : [place] [phone] Bilirubin, total 0.4 0.1 - 1.2 mg/dL [facility] Comment:Testing performed by : [address] [address] Protein, pl 7.2 6.5 - 8.5 g/dL [facility] Comment:Testing performed by : [facility], [address] [place] [phone] Albumin 4.1 3.5 - 5.0 g/dL [facility] Comment:Testing performed by : [address] [phone] Alk phos 174(H) 40 - 130 Units/L [facility] Comment:Testing performed by : [place] [phone] ALT 28 7 - 45 Units/L [facility] Comment:Testing performed by : [facility], [address] [place] [phone] AST 36 10 - 45 Units/L [facility] Comment:Testing performed by : [address] [phone] Blood specimen (specimen) 02/13/2021 1:13 PM CDT 02/13/2021 1:15 PM CDT us Eren Cr MD LAB BLOOD ORDERABLES Final Re sult [facility] One [facility] Department [place] [address] * (ABNORMAL) CBC with auto differential (02/13/2021 1:13 PM CDT) WBC 4.0 3.8 - 9.8 K/cumm [facility] Comment:Testing performed by : [facility], [address] [place] [phone] Hgb 12.2 12.1 - 15.1 g/dL [facility] Comment:Testing performed by : [facility], [address] [place] [phone] Hct 34.7(L) 36.1 - 44.3 % [facility] Comment:Testing performed by : [place] [phone] Plt 121(L) 140 - 440 K/cumm [facility] Comment:Testing performed by : [facility], [address] [place] [phone] MPV 7.9 6.8 - 10.4 fL [facility] Comment:Testing performed by : [address] [phone] RBC 3.91 3.90 - 5.00 M/cumm [facility] Comment:Testing performed by : [address] [phone] MCV 88.6 80.0 - 97.6 fL [facility] Comment:Testing performed by : [address] [phone] MCH 31.3 26.7 - 33.7 pg [facility] Comment:Testing performed by : [address] [address] MCHC 35.3 32.7 - 35.5 g/dL [facility] Comment:Testing performed by : [address] [address] RDW CV 13.0 11.8 - 14.6 % [facility] Comment:Testing performed by : [address] [phone] NRBC abs 0.00 0.00 - 0.01 K/cumm [facility] Comment:Testing performed by : [facility], [address] [place] [phone] Blood specimen (specimen) 02/13/2021 1:13 PM CDT 02/13/2021 1:15 PM CDT Eren Cr MD LAB BLOOD ORDERABLES Final Re sult [facility] Department [place] [address] * (ABNORMAL) Comprehensive metabolic panel (02/06/2021 1:45 PM CDT) Sodium 138 135 - 145 mmol/L [facility] Comment:Testing performed by : [facility], [address] [place] [phone] Potassium, pl 4.1 3.3 - 4.9 mmol/L [facility] Comment:Testing performed by : [facility], [address] [place] [address] Chloride 105 97 - 110 mmol/L [facility] Comment:Testing performed by : [facility], [address] [place] [address] CO2 28 22 - 32 mmol/L [facility] Comment:Testing performed by : [address] [address] Anion gap 5 2 - 15 mmol/L [facility] Comment:Testing performed by : [facility], [address] [place] [address] BUN 10 8 - 25 mg/dL [facility] Comment:Testing performed by : [facility], [address] [place] [phone] Creatinine 0.83 0.60 - 1.10 mg/dL [facility] Comment:Testing performed by : [facility], [address] [place] [phone] Glucose 131 70 - 199 mg/dL [facility] Comment: Interpretive Data Fasting glucose >/= [...] was last revised 2017. Testing performed by: [facility], [address] [place] [phone] Calcium 10.7(H) 8.5 - 10.3 mg/dL [facility] Comment:Testing performed by : [address] [address] Bilirubin, total 0.4 0.1 - 1.2 mg/dL [facility] Comment:Testing performed by : [address] [address] Protein, pl 6.6 6.5 - 8.5 g/dL [facility] Comment:Testing performed by : [address] [address] Albumin 4.0 3.5 - 5.0 g/dL [facility] Comment:Testing performed by : [address] [phone] Alk phos 148(H) 40 - 130 Units/L [facility] Comment:Testing performed by : [address] [address] ALT 31 7 - 45 Units/L [facility] Comment:Testing performed by : [address] [address] AST 35 10 - 45 Units/L [facility] Comment:Testing performed by : [address] [address] Blood specimen (specimen) 02/06/2021 1:45 PM CDT 02/06/2021 1:46 PM CDT us Eren Cr MD LAB BLOOD ORDERABLES Final Re sult Performing Organization Address [facility] [place] [address] * Vitamin D 25 hydroxy (01/30/2021 2:10 PM CDT) Pathologist [facility] Vitamin D 25-OH 30 30 - 80 ng/mL [facility] Blood specimen (specimen) 01/30/2021 2:10 PM CDT 01/30/2021 3:10 PM CDT Eren Cr MD LAB BLOOD ORDERABLES Edited R esult - Final Performing Organization Address [facility] [place] [address] * Phosphorus (01/30/2021 2:10 PM CDT) Pathologist [facility] Phosphorus, pl 2.3 2.3 - 4.5 mg/dL [facility] Comment:Testing performed by : [facility], [address] [place] [phone] Blood specimen (specimen) 01/30/2021 2:10 PM CDT 01/30/2021 2:12 PM CDT us Eren Cr MD LAB BLOOD ORDERABLES Final Re sult Performing Organization Address [facility] [place] [address] documented in this encounter Visit Diagnoses Diagnosis [...] 02/13/202102/06 documented in this encounter Care Teams Laser Set Up Operator Relationship Specialty Start Date End Date Julio César Briseno MD PCP - General 10/01/16 Eren Cr MD Referring Physician Medical Oncology 11/25/18 Yohana Bowen MD Radiation Oncologist Radiation Oncology 11/25/18 Sabrina Willard NP [address] [place] [address] Nurse Practitioner Medical Oncology 08/17/20 11/26/21 documented as of this encounter
--- OUTSIDE RECORDS SUMMARY | 2024-06-26 02:12 | XMS_ITS | Encounter Summary ---
Author Organization [facility] Address [address] [place] [address] Phone Care Team Providers Care Senior Laboratory Technician Name Role Phone Julio César Briseno MD Primary Care Provider Eren Cr MD Unavailable [phone] Yohana Bowen MD Unavailable Sabrina Willard NP Unavailable Encounter Details Date Type Department Care Team (Late st Contact Info) Description 02/21/[address] 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
--- OUTSIDE RECORDS SUMMARY | 2024-06-26 02:12 | XMS_ITS | Encounter Summary ---
Author Organization [facility] Address [address] [place] [address] Phone Care Team Providers Care Sponge Buffer Name Role Phone Julio César Briseno MD Primary Care Provider Eren Cr MD Unavailable [phone] Yohana Bowen MD Unavailable Sabrina Willard NP Unavailable [phone] Encounter Details Date Type Department Care Team (Late st Contact Info) Description 01/11/2021 Documentation [facility] Oncology [address] [facility] Advanced Medicine 7th [place] [address] [place] [phone] Shavonne Lee LCSW Social History Tobacco Use Types Packs/Day Years Used Date Smoking Tobacco: Never Smokeless Tobacco: Never Alcohol Use Standard Drinks/Week Comments Yes 1 (1 standard drink = 0.6 oz pur e alcohol) Comments No Sex and Gender Information Value Date Recorded Sex Assigned at Not on file 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 Social work spoke with patient to discuss assistance for the medication Afinitor ([employer]). Patient has been approved to receive free medication from the plastic surgery technician. Dates of approval are: 01/11/2021-07/07/2021. For refills, patient can call [phone]. Contact Information: LIIL Shavonne ORDOÑEZ CAN CAPPER documented in this encounter Plan of Treatment Not on file documented as of this encounter Visit Diagnoses Not on filedocumented in this encounter Care Teams Sponge Buffer Relationship Specialty Start Date End Date Julio César Briseno MD PCP - General 10/01/16 Eren Cr MD Referring Physician Medical Oncology 11/25/18 Yohana Bowen MD Radiation Oncologist Radiation Oncology 11/25/18 Sabrina Willard NP [address] [place] [address] Nurse Practitioner Medical Oncology 08/17/20 11/26/21 documented as of this encounter
--- OUTSIDE RECORDS SUMMARY | 2024-06-26 02:13 | XMS_ITS | Encounter Summary ---
Author Organization [facility] Healthcare Address [address] [place] [address] Care Team Providers Care Project Safety Manager Name Role Phone Julio César Briseno MD Primary Care Provider Eren Cr MD Unavailable Yohana Bowen MD Unavailable Sabrina Willard NP Unavailable Reason for Visit * Reason Comments Fall Encounter Details Date Type Department Care Team (Late st Contact Info) Description 11/20/2020 1:02 PM CDT - 11/20/2020 7:56 PM CDT Emergency [facility] Emergency Department [address] [place] [address] Hilario Fernandes MD [address] [place] [address] Freddie Bowen MD [address] [place] [address] Closed displaced fracture of head of right [...] file Legal Sex 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 * Contusion, Facial (Cymro) * Arm Fracture in Adults (Ship Fitter) (Cymro) * Fall, Mechanical (Cymro) documented in this encounter Medications at Time of Discharge ostomy supplies [facility] Patient has colostomy and needs Cavilon 3M skin barrier film to manage. 20 each 6 09/21/2019 simvastatin (ZOCOR) 20 mg tablet Take 1 tablet (20 mg total) by mouth nightly ascorbic acid, vitamin C, 500 mg capsuleIndications :supplement Take 1 tablet by mouth membership secretary before breakfast 07/04/2016 4 cholecalciferol (VITAMIN D-3) 2,000 unit capsule Take 1 capsule (2,000 Units total) by mouth daily 30 capsule 2 04/25/2019 3 cholestyramine (QUESTRAN) 4 gram packet Take 1 packet by mouth 3 (three) times a day with meals 270 packet 3 09/04/2019 2 clotrimazole-betam ethasone (LOTRISONE) cream Apply 1 Application topically daily as needed (rash) 4 coenzyme [id number] 100-5 mg-unit capsuleIndications :supplement Take 1 tablet by mouth membership secretary before breakfast 4 denosumab (XGEVA) 120 mg/1.7 [...] ??? JOINT REPLACEMENT Left 2014 ? ? CT REMOVAL OF TONSILS,<12 Y/O Tonsillectomy - (Added by TW Conv) ??? CT TOTAL ABDOM HYSTERECTOMY Hysterectomy - (Added by TW Conv) Prior to Admission medications Medication Sig Start Date End Date Taking? Authorizing Provider ascorbic acid, vitamin C, 500 mg capsule Take 1 tablet by mouth membership secretary before breakfast 07/04/16 Levon Kee MD cholecalciferol [...] TWICE DAILY NEEDED Levon Kee MD coenzyme [id number] (CO Q-10, WITH VIT E,) 100-5 mg-unit capsule Take by mouth membership secretary before breakfast Levon Kee MD denosumab (XGEVA) 120 mg/1.7 mL (70 mg/mL) injection Inject under the skin every 30 (thirty) days Levon Kee MD DULoxetine DR (CYMBALTA) 30 mg capsule Take 1 capsule (30 mg total) by mouth daily Patient taking differently: Take 30 mg by mouth membership secretary before breakfast 04/24/19 Laura Lopes MD fluticasone [...] per tablet Take 0.5 tablets by mouth membership secretary before breakfast decrease dosage to 0.5 tablet daily 05/14/[address] Briseno at office visit. 05/14/19 Levon Kee MD ondansetron (ZOFRAN) 8 mg tablet Take 1 tablet (8 mg total) by mouth every 8 (eight) hours as needed for nausea or vomiting Patient not taking: Reported on 06/23/2020 08/05/19 Yohana Bowen MD ostomy supplies [facility] Patient has colostomy and needs Cavilon 3M [...] the appropriate orthopaedic surgery team, please use [email or web address] to page resident directly. ? If you have questions overnight or can't reach the appropriate resident, please call the Orthopaedic Surgery Consult Pager [phone] to have your questions answered or be [...] s/p chemo 2019 who paambulatory transfer from [facility] after fall down stairs. 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 JOINT REPLACEMENT Left 2014 ? ? CT REMOVAL OF TONSILS,<10 Y/O [...] s/p chemo 2019 who paambulatory transfer from [facility] after fall down stairs. Ddx: known R [...] with R- radial head fx, sent to [facility] For further treatment. Otherwise, no other treatments [...] 11/24/20 0802 Immanuel Goldstein MD Resident 11/25/20 0629 Cosigned by Freddie Bowen MD at 11/26/2020 [...] s/p chemo 2019 whopa ambulatory transfer from [facility] after fall down stairs. Trauma work up [...] Date/Time: 11/20/2020 6:25 PM Performed by: Freddie Bowne MD Authorized by: Immanuel Goldstein MD Rate: [...] abs 3.9 1.7 - 6.5 K/cumm [facility] Imm gran abs 0.0 0.0 - 0.1 K/cumm [facility] Lymphocyte abs 0.4(L) 0.8 - 3.3 K/cumm [facility] Monocyte abs 0.6 0.2 - 0.8 K/cumm [facility] Eosinophil abs 0.1 0.0 - 0.5 K/cumm [facility] Basophil abs 0.0 0.0 - 0.1 K/cumm [facility] Neutrophil pct 76.9 % [facility] Comment: Interpretive Data Percent cell count reference ranges are not reported, since discordance with absolute values may lead to misinterpretation of CBC data. Current Interpretive Data was last revised on 2017. Imm gran pct 0.4 % [facility] Comment: Interpretive Data Percent cell count reference ranges are not reported, since discordance with absolute values may lead to misinterpretation of CBC data. Current Interpretive Data was last revised on 2017. Lymphocyte pct 8.4 % [facility] Comment: Interpretive Data Percent cell count reference ranges are not reported, since discordance with absolute values may lead to misinterpretation of CBC data. Current Interpretive Data was last revised on 2017. Monocyte pct 12.5 % [facility] Comment: Interpretive Data Percent cell count reference ranges are not reported, since discordance with absolute values may lead to misinterpretation of CBC data. Current Interpretive Data was last revised on 2017. Eosinophil pct 1.4 % [facility] Comment: Interpretive Data Percent cell count reference ranges are not reported, since discordance with absolute values may lead to misinterpretation of CBC data. Current Interpretive Data was last revised on 2017. Basophil pct 0.4 % [facility] Comment: Interpretive Data Percent cell count reference ranges are not reported, since discordance with absolute values may lead to misinterpretation of CBC data. Current Interpretive Data was last revised on 2017. Blood specimen (specimen) 11/20/2020 7:03 PM CDT 11/20/2020 7:18 PM CDT us Immanuel Goldstein MD LAB BLOOD ORDERABLES Fin al Result [facility] Department [place] [address] * COVID-19 Coronavirus antigen Nasopharyngeal (11/20/2020 7:03 PM CDT) COVID-19 Ag Presumptive Negative Presumptive Negative [facility] Comment: Interpretive data: Testing was performed under Emergency Use Authorization using the [employer] System for detection of SARS-CoV-2 nucleocapsid antigen. [...] modified August 2020. First COVID-19 test? No [facility] Employeed in healthcare? No [facility] status? No [facility] Group care resident? No [facility] Hospitalized? No [facility] Is patient in ICU? No [facility] Symptomatic as defined by CDC? No [facility] Nasopharyngeal 11/20/2020 7: 03 PM CDT 11/20/2020 7:15 PM CDT Narrative [facility] - 11/20/2020 7:36 PM CDT Reason for testing?->Screening prior to urgent surgery or procedure Juice Singh MD LAB MICROBIOLOGY - GENER AL ORDERABLES Final Result Performing Organization Address City/[facility]/[place] [address] * aPTT (11/20/2020 7:03 PM CDT) Pathologist [facility] aPTT 28 27 - 37 sec [facility] Comment: Interpretive Data Therapeutic heparin range: 60.0 - 94.0 seconds. Based on correlation with therapeutic heparin activity range of 0.3-0.7 Units/mL. Current interpretive data was last revised on 2020. Blood specimen (specimen) 11/20/2020 7:03 PM CDT 11/20/2020 7:40 PM CDT Immanuel Goldstein MD LAB BLOOD ORDERABLES Fin al Result Performing Organization Address [facility] [place] [address] * Protime-INR (11/20/2020 7:03 PM CDT) [facility] PT 10.6 9.5 - 13.6 sec [facility] INR 1.0 0.9 - 1.2 [facility] Comment: Interpretive data Oral anticoagulant therapeutic [...] ORDERABLES Fin al Result Performing Organization Address [facility] [place] [address] * Type and screen (11/20/2020 7:03 PM CDT) Pathologist [facility] ABO Rh AB Positive [facility] Yolande, indirect Negative [facility] Blood specimen (specimen) 11/20/2020 7:03 PM CDT 11/20/2020 7:17 PM CDT Narrative [facility] - 11/20/2020 8:47 PM CDT Has the patient had Daratumumab or Isatuximab in the past 6 months?->Unknown Immanuel Goldstein MD LAB BLOOD BANK TEST ORDE ROB Final Result Performing Organization Address City/[facility]/ZIP Co de Phone Number [facility] Department [place] [address] * (ABNORMAL) CBC with auto differential (11/20/2020 7:03 PM CDT) [facility] WBC 5.0 3.8 - 9.9 K/cumm [facility] Hgb 12.1 11.9 - 15.5 g/dL [facility] Hct 35.4(L) 35.6 - 45.5 % [facility] Plt 124(L) 150 - 400 K/cumm [facility] MPV 9.9 9.1 - 12.3 fL [facility] RBC 3.78(L) 3.90 - 5.20 M/cumm [facility] MCV 93.7 81.3 - 96.4 fL [facility] MCH 32.0 27.1 - 33.3 pg [facility] MCHC 34.2 32.3 - 35.7 g/dL [facility] RDW CV 13.4 11.1 - 14.9 % [facility] RDW SD 45.1 35.7 - 48.1 fL [facility] NRBC abs 0.00 0.00 - 0.01 K/cumm [facility] Blood specimen (specimen) 11/20/2020 7:03 PM CDT 11/20/2020 7:18 PM CDT Immanuel Goldstein MD LAB BLOOD ORDERABLES Fin al Result [facility] Department [place] [address] * ECG 12-LEAD (11/20/2020 6:25 PM CDT) Narrative [facility] - 11/20/2020 6:25 PM CDT Freddie Bowen [...] MD ECG ORDERABLES Final Re sult [facility] * CT Elbow Right WO Contrast (11/20/2020 4:49 PM CDT) Anatomical Region Laterality Modality Upper Extremities Right Computed Tomog maikol 11/20/2020 5:0 7 PM CDT Impressions 11/20/2020 5:14 PM CDT [...] and agrees with it. Electronically signed by: Cahlino Villegas M.D. Narrative 11/20/2020 5:14 PM CDT [...] by: Chalino Villegas M.D. Immanuel Goldstein MD [facility] CT PROCEDURES Final Result * CT Head [...] WBC, ur 0-5 0 - 5 /HPF [facility] RBC, ur 0-2 0 - 2 /HPF [facility] Epithelial cells, squamous, ur 1-5 0 - 5 /HPF [facility] Mucous, ur Present(A) [facility] Culture Reflex Comment Reflex conditions for urine culture (WBC >10) not met. [facility] Urine, bladder 11/20/2020 3: 02 PM CDT 11/20/2020 5:44 PM CDT us Immanuel Goldstein MD LAB URINE ORDERABLES Fin al Result Performing Organization Address [facility] Co de Phone Number [facility] [address] [facility] Department [place] [address] * (ABNORMAL) Urinalysis reflex to microscopic and culture Urine, bladder (11/20/2020 3:02 PM CDT) Color, ur Straw Yellow [facility] Clarity, ur Clear Clear [facility] Specific gravity, ur 1.013 1.010 - 1.025 [facility] pH, urine 6 [facility] Protein, ur ql Negative Negative [facility] Glucose, ur ql Negative Negative [facility] Ketones, ur Negative Negative [facility] Bilirubin, ur Negative Negative [facility] Blood, ur Negative Negative [facility] Comment:Ascorbic acid identi fied in urine; possible false negative blood result. A microscopic exam will be added to identify RBCs. Urobilinogen, ur <2.0 <2.0 mg/dL [facility] Nitrite, ur Negative Negative [facility] Leukocyte esterase, ur 1+(A) Negative [facility] UA reflex comment Reflex to microscopic UA will be performed. [facility] Urine, bladder 11/20/2020 3: 02 PM CDT [...] tendency for uric acid stone formation. Source: [employer]. Last revised 07-18-2017 Immanuel Goldstein MD LAB MICROBIOLOGY - GENER AL ORDERABLES Final Result [facility] Department [place] [address] * Lipase (11/20/2020 1:40 PM CDT) Pathologist [facility] Lipase 21 10 - 99 Units/L [facility] Blood specimen (specimen) 11/20/2020 1:40 PM CDT 11/20/2020 3:15 PM CDT Immanuel Goldstein MD LAB BLOOD ORDERABLES Fin al Result Performing Organization Address [facility] Co de Phone Number [facility] Department [place] [address] * Comprehensive metabolic panel (11/20/2020 1:40 PM CDT) Pathologist [facility] Sodium 138 135 - 145 mmol/L [facility] Potassium, pl See Comment 3.3 - 4.9 mmol/L [facility] Comment:Credited; Hemolyzed Specimen Chloride 104 97 - 110 mmol/L [facility] CO2 27 22 - 32 mmol/L [facility] Anion gap 7 2 - 15 mmol/L [facility] BUN 12 8 - 25 mg/dL [facility] Creatinine 0.88 0.60 - 1.10 mg/dL [facility] Glucose 139 70 - 199 mg/dL [facility] [...] 2017. Calcium 10.1 8.5 - 10.3 mg/dL [facility] Bilirubin, total 0.5 0.1 - 1.2 mg/dL [facility] Protein, pl 6.7 6.5 - 8.5 g/dL [facility] Albumin 4.2 3.5 - 5.0 g/dL [facility] Alk phos 75 40 - 130 Units/L [facility] Comment:Hemolyzed; result ma y be falsely decreased ALT See Comment 7 - 45 Units/L [facility] Comment:Credited; Hemolyzed Specimen AST See Comment 10 - 45 Units/L [facility] Comment:Credited; Hemolyzed Specimen Blood specimen (specimen) 11/20/2020 1:40 PM CDT 11/20/2020 3:15 PM CDT Immanuel Goldstein MD LAB BLOOD ORDERABLES Fin al Result Performing Organization Address [facility] Co de Phone Number [facility] Department [place] [address] * XR Outside Reference (11/20/2020 1:39 PM CDT) Impressions RAD_PACS_[facility] - 11/20/2020 1:39 PM CDT These images are for Reference purposes only and have not been reviewed by [facility] Radiology. ??There will be no report generated by a [facility] Radiologist. Narrative [facility] - 11/20/2020 1:39 PM CDT EXAMINATION: ??Images For Reference Purposes Only Immanuel Goldstein MD IMG XR PROCEDURES Final Result Performing Organization Address [facility] Co de Phone Number [id number] documented [...] at 1945, For 1 dose, Indications: Pain 195 (Given - Provid er: Tamar Pagan [...] 11/20/2020 documented in this encounter Care Teams Project Safety Manager Relationship Specialty Start Date End Date Julio César Briseno MD PCP - General 10/01/16 Eren Cr MD Referring Physician Medical Oncology 11/25/18 Yohana Bowen MD Radiation Oncologist Radiation Oncology 11/25/18 Sabrina Willard NP [address] [place] [address] Nurse Practitioner Medical Oncology 08/17/20 11/26/21 documented as of this encounter
--- OUTSIDE RECORDS SUMMARY | 2024-06-26 02:13 | XMS_ITS | Encounter Summary ---
Author Organization [facility] Healthcare Address [address] [place] [address] Care Team Providers Care Color Control Operator Name Role Phone Julio César Briseno MD Primary Care Provider [phone] Eren Cr MD Unavailable [phone] Yohana Bowen MD Unavailable Sabrina Willard NP Unavailable [phone] Encounter Details Date Type Department Care Team (Late st Contact Info) Description 12/06/2020 3:45 PM CDT Lab [address] [address] Social History Tobacco Use Types Packs/Day Years Used Date Smoking Tobacco: Never Smokeless Tobacco: Never Alcohol Use Standard Drinks/Week Comments Yes 1 (1 standard drink = 0.6 oz pur e alcohol) Comments No Sex and Gender Information Value Date Recorded Sex Assigned at Not on file 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 Triglycerides 185(H) <=149 mg/dL [facility] Comment: Interpretive Data Ages < or = [...] 2018. LDL, calculated 33 <=129 mg/dL [facility] Comment: Interpretive Data Ages < or = [...] on 2018. Non-HDL Cholesterol 70 mg/dL [facility] Comment: Interpretive Data Ages < or = [...] revised on 2018. Chol/HDL [facility] 2 [facility] Blood specimen (specimen) 12/06/2020 3:09 PM CDT 12/06/2020 3:41 PM CDT us Notinfile Unknown LAB BLOOD ORDERABLES Final Res ult [facility] [place] [address] documented in this encounter Visit Diagnoses Not on filedocumented in this encounter Care Teams Color Control Operator Relationship Specialty Start Date End Date Julio César Briseno MD PCP - General 10/01/16 Eren Cr MD Referring Physician Medical Oncology 11/25/18 Yohana Bowen MD Radiation Oncologist Radiation Oncology 11/25/18 Sabrina Willard NP [address] [place] [address] Nurse Practitioner Medical Oncology 08/17/20 11/26/21 documented as of this encounter
--- OUTSIDE RECORDS SUMMARY | 2024-06-26 02:13 | XMS_ITS | Encounter Summary ---
Author Organization [facility] Address [address] [place] [address] Phone Care Team Providers Care Global Cmo Name Role Phone Julio César Briseno MD Primary Care Provider Eren Cr MD Unavailable [phone] Yohana Bowen MD Unavailable Sabrina Willard NP Unavailable [phone] Encounter Details Date Type Department Care Team (Late st Contact Info) Description 10/10/2020 Orders Only [facility] Oncology [address] [facility] 7[address] [place] [address] [place] [id number] Eren Cr MD [address] [facility] [address] [place] [address] Social History Tobacco Use Types Packs/Day Years Used Date Smoking Tobacco: Never Smokeless Tobacco: Never Alcohol Use Standard Drinks/Week Comments Yes 1 (1 standard drink = 0.6 oz pur e alcohol) Comments No Sex and Gender Information Value Date Recorded Sex Assigned at Not on file 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 Gender Identity Not on file Sexual Orientation Straight 02/19/2021 9: 29 AM CDT Occupation Industry Job Start Date Job End Date retired Not on file Not on file Not on file documented as of this encounter Plan of Treatment Not on file documented as of this encounter Visit Diagnoses Not on filedocumented in this encounter Care Teams Global Cmo Relationship Specialty Start Date End Date Julio César Briseno MD PCP - General 10/01/16 Eren Cr MD Referring Physician Medical Oncology 11/25/18 Yohana Bowen MD Radiation Oncologist Radiation Oncology 11/25/18 Sarbina Willard NP [address] [place] [address] Nurse Practitioner Medical Oncology 08/17/20 11/26/21 documented as of this encounter
--- OUTSIDE RECORDS SUMMARY | 2024-06-26 02:13 | XMS_ITS | Encounter Summary ---
Author Organization [facility] Address [address] [place] [address] Phone Care Team Providers Care Track Maintainer Name Role Phone Julio César Briseno MD Primary Care Provider [phone] Eren Cr MD Unavailable [phone] Yohana Bowen MD Unavailable Sabrina Willard NP Unavailable [phone] Reason for Referral * MRI/CAT/PET Scan (Routine) - Closed Specialty Diagnoses / Procedures Referred By Contac t Referred To Contact Radiology Diagnoses Neuroendocrine carcinoma (HCC) Procedures PET/CT Dotatate Skull to Thigh Eren Cr MD [address] [place] [address] Phone: tel: fax: [address] [address] Referral ID Status Reason Start Date Expiration Date Visits Re quested Visits Authorized [id number] Closed 12/09/2020 01/08/2022 1 1 Encounter Details Date Type Department Care Team (Late st Contact Info) Description 12/09/2020 Orders Only [facility] Oncology [address] [facility] [address]th [place] [address] [place] [address] Eren Cr MD [address] [facility] [address] [place] [address] Neuroendocrine carcinoma (CMS/HCC) (Primary Dx) Social History Tobacco Use Types Packs/Day Years Used Date Smoking Tobacco: Never Smokeless Tobacco: Never Alcohol Use Standard Drinks/Week Comments Yes 1 (1 standard drink = 0.6 oz pur e alcohol) Comments No Sex and Gender Information Value Date Recorded Sex Assigned at Not on file 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 ??The study was interpreted on the [employer] workstation. ?? Scanned area: skull vertex to [...] obtained. The study was interpreted on the [employer] workstation. Scanned area: skull vertex to the [...] site documented in this encounter Care Teams Track Maintainer Relationship Specialty Start Date End Date Julio César Briseno MD PCP - General 10/01/16 Eren Cr MD Referring Physician Medical Oncology 11/25/18 Yohana Bowen MD Radiation Oncologist Radiation Oncology 11/25/18 Sabrina Willard NP [address] [place] [address] Nurse Practitioner Medical Oncology 08/17/20 11/26/21 documented as of this encounter
--- OUTSIDE RECORDS SUMMARY | 2024-06-26 02:13 | XMS_ITS | Encounter Summary ---
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) Procedures [place] OCTREOTIDE INJECTION, DEPOT Octreotide 28 Day Cycles - Carcinoid Eren Cr MD [address] [facility] [address] [place] [address] Phone: tel: fax: [facility] Cancer [address] [address] Phone: tel: fax: Referral ID Status Reason Start Date Expiration Date V isits Requested Visits Authorized [id number] Authorized 11/28/2017 02/05/2025 1 150 Encounter Details Date Type Department Care Team (Late st Contact Info) Description 10/10/2020 4:15 PM CDT Infusion [facility] Oncology [address] [facility] 7th [place] [id number] Neuroendocrine carcinoma (CMS/HCC) (Primary Dx); Malignant neoplasm [...] on file Legal Sex Female 2:41 PM BOOK MENDER Gender Identity Not on file Sexual [...] Body Mass Index 32.8 06/23/2020 2:55 PM BOOK MENDER documented in this encounter Nursing Notes * [...] First Orde red Date ONCBCN NURSING COMMUNICATION [id number] 10/10 ONCBCN NURSING COMMUNICATION [id number] 1 0 10/10/2020 ONCBCN OK TO TREAT 1 10/10/2020 PHYSICIAN COMMUNICATION ORDER 1 10/10/2020 Appointment Requests Count Last Ordered Date Fi rst Ordered Date ONCBCN INJECTION APPOINTMENT REQUEST 1 11/2020 documented in this encounter Care Teams Motor Winder Relationship Specialty Start Date End Date Julio César Briseno MD PCP - General 10/01/16 Eren Cr MD Referring Physician Medical Oncology 11/25/18 Yohana Boewn MD Radiation Oncologist Radiation Oncology 11/25/18 Sabrina Willard NP [address] [facility] [address] [place] [address] Nurse Practitioner Medical Oncology 08/17/20 11/26/21 documented as of this encounter
--- OUTSIDE RECORDS SUMMARY | 2024-06-26 02:13 | XMS_ITS | Encounter Summary ---
Author Organization [facility] Address [address] [place] [address] Phone Care Team Providers Care Ice Skating Instructor Name Role Phone Julio César Briseno MD Primary Care Provider [phone] Eren Cr MD Unavailable Yohana Bowen MD Unavailable Sabrina Willard NP Unavailable Encounter Details Date Type Department Care Team (Late st Contact Info) Description 11/14/2020 11:00 AM CDT Office Visit [facility] Oncology [facility] 7th [place] [address] [place] [address] Eren Cr MD [facility] [address] [place] [address] Neuroendocrine carcinoma (CMS/HCC) (Primary Dx); Bone metastasis (CMS/HCC); Diarrhea, unspecified type Social History Tobacco Use Types Packs/Day Years Used Date Smoking Tobacco: Never Smokeless Tobacco: Never Alcohol Use Standard Drinks/Week Comments Yes 1 (1 standard drink = 0.6 oz pur e alcohol) Comments No Sex and Gender Information Value Date Recorded Sex Assigned at Not on file 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 She states she is finally [...] No rashes over exposed skin NEURO: A&Ox4, imaging science professor grossly intact by conversation, moving all [...] are normal. The limited view of the [place] is unremarkable. The visualized portions [...] asneeded. Will consider discussing next images at [facility] tumor board. 2. Diarrhea: encouraged Imodium PRN. [...] type documented in this encounter Care Teams Ice Skating Instructor Relationship Specialty Start Date End Date Julio César Briseno MD PCP - General 10/01/16 Eren Cr MD Referring Physician Medical Oncology 11/25/18 Yohana Bowen MD Radiation Oncologist Radiation Oncology 11/25/18 Sabrina Willard NP [address] [place] [address] Nurse Practitioner Medical Oncology 08/17/20 11/26/21 documented as of this encounter
--- OUTSIDE RECORDS SUMMARY | 2024-06-26 02:13 | XMS_ITS | Encounter Summary ---
Author Organization [facility] [place] [facility] Address [address] [place] [address] Phone Care Team Providers Care Manager Of Distribution Name Role Phone Julio César Briseno MD Primary Care Provider [phone] Eren Cr MD Unavailable [phone] Yohana Bowen MD Unavailable Sabrina Willard NP Unavailable [phone] Reason for Referral * Consultation (Routine) - Closed Specialty Diagnoses / Procedures Referred By Contellen bowman Referred To Contact Physical Therapy Diagnoses Closed displaced fracture of head of right radius with routine healing, subsequent encounter Lu Garcia MD Phone: tel: [facility] [place] [address] [place] [address] Phone: tel: fax: Referral ID Status Reason Start Date Expiration Date V isits Requested Visits Authorized [id number] Closed Specialty Services Required 01/04/2021 02/03/2022 12 12 Question Answer PTRFR PT Evaluate and Treat Therapy options discussed with patient? Yes Location provided for therapy services is: Patient requested/Patient preferred Please select the performing region: External Order [[id number]] To loc/pos [facility] [place] [[id number]] Comments Please see patient twice a week [...] 2 Views Lu Garcia MD Phone: tel: [facility] Referral ID Status Reason Start Date Expiration Date Visits Re quested Visits Authorized [id number] Closed 12/29/2020 01/28/2022 1 1 Reason for Visit * Reason Comments Follow-up Fracture Encounter Details Date Type Department Care Team (Late st Contact Info) Description 01/04/2021 12:30 PM CDT Office Visit [facility] Orthopaedic Surgery [address] [facility] 6th [place] [address] [place] [address] Lu Garcia MD [address] [facility] [address] [place] [address] Closed displaced fracture of head of right [...] 05/22/2021 added in this encounter Care Teams Manager Of Distribution Relationship Specialty Start Date End Date Julio César Briseno MD PCP - General 10/01/16 Eren Cr MD Referring Physician Medical Oncology 11/25/18 Yohana Bowen MD Radiation Oncologist Radiation Oncology 11/25/18 Sabrina Willard NP [address] [facility] [facility] [address] [place] [address] Nurse Practitioner Medical Oncology 08/17/20 11/26/21 documented as of this encounter
--- OUTSIDE RECORDS SUMMARY | 2024-06-26 02:13 | XMS_ITS | Encounter Summary ---
Author Organization [facility] Address [address] [place] [address] Phone Care Team Providers Care Platform Inspector Name Role Phone Julio César Briseno MD Primary Care Provider [phone] Eren Cr MD Unavailable Yohana Bowen MD Unavailable Sabrina Willard NP Unavailable [phone] Encounter Details Date Type Department Care Team (Late st Contact Info) Description 11/09/2020 Orders Only [facility] Oncology [address] [facility] Advanced Medicine 7th [place] [address] [place] [address] Eren Cr MD [address] [facility] [address] [place] [address] Neuroendocrine carcinoma (CMS/HCC) (Primary Dx) Social History Tobacco Use Types Packs/Day Years Used Date Smoking Tobacco: Never Smokeless Tobacco: Never Alcohol Use Standard Drinks/Week Comments Yes 1 (1 standard drink = 0.6 oz pur e alcohol) Comments No Sex and Gender Information Value Date Recorded Sex Assigned at Not on file 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
--- OUTSIDE RECORDS SUMMARY | 2024-06-26 02:13 | XMS_ITS | Encounter Summary ---
Author Organization [facility] Address [address] [place] [address] Phone Care Team Providers Care Tool Honing Machine Set Up Operator Name Role Phone Julio César Briseno MD Primary Care Provider Eren Cr MD Unavailable Yohana Bowen MD Unavailable Sabrina Willard NP Unavailable Encounter Details Date Type Department Care Team (Late st Contact Info) Description 09/12/2020 Orders Only [facility] Oncology [address] [facility] Advanced Medicine 7th [place] [address] [place] [address] Sabrina Willard NP [address] [place] [address] Social History Tobacco Use Types Packs/Day Years Used Date Smoking Tobacco: Never Smokeless Tobacco: Never Alcohol Use Standard Drinks/Week Comments Yes 1 (1 standard drink = 0.6 oz pur e alcohol) Comments No Sex and Gender Information Value Date Recorded Sex Assigned at Not on file 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 Gender Identity Not on file Sexual Orientation Straight 02/19/2021 9: 29 AM CDT Occupation Industry Job Start Date Job End Date retired Not on file Not on file Not on file documented as of this encounter Plan of Treatment Not on file documented as of this encounter Visit Diagnoses Not on filedocumented in this encounter Care Teams Tool Honing Machine Set Up Operator Relationship Specialty Start Date End Date Julio César Briseno MD PCP - General 10/01/16 Eren Cr MD Referring Physician Medical Oncology 11/25/18 Yohana Bowen MD Radiation Oncologist Radiation Oncology 11/25/18 Sabrina Willard NP [address] [place] [address] Nurse Practitioner Medical Oncology 08/17/20 11/26/21 documented as of this encounter
--- OUTSIDE RECORDS SUMMARY | 2024-06-26 02:13 | XMS_ITS | Encounter Summary ---
Author Organization [facility] Address [address] [place] [address] Phone Care Team Providers Care Belt Fixer Name Role Phone Julio César Briseno MD Primary Care Provider Eren Cr MD Unavailable [phone] Yohana Bowen MD Unavailable Sabrina Willard NP Unavailable [phone] Encounter Details Date Type Department Care Team (Late st Contact Info) Description 01/02/2021 Documentation [facility] Oncology [address] 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 Social work spoke with patient and family member to discuss assistance for the medication Afinitor ([employer]). An application for assistance was completed with Social Work assistance. Application forassistance has been faxed to [employer]. Social Work will continue to follow to assist with this issue. Contact Information: LILI Shavonne ORDOÑEZ, SECURITY ASSESSOR documented in this encounter Plan of Treatment Not on file documented as of this encounter Visit Diagnoses Not on filedocumented in this encounter Care Teams Belt Fixer Relationship Specialty Start Date End Date Julio César Briseno MD PCP - General 10/01/16 Eren Cr MD Referring Physician Medical Oncology 11/25/18 Yohana Bowen MD Radiation Oncologist Radiation Oncology 11/25/18 Sabrina Willard NP [address] [place] [address] Nurse Practitioner Medical Oncology 08/17/20 11/26/21 documented as of this encounter
--- OUTSIDE RECORDS SUMMARY | 2024-06-26 02:13 | XMS_ITS | Encounter Summary ---
Author Organization [facility] Address [address] [place] [address] Care Team Providers Care Gm Name Role Phone Julio César Briseno MD Primary Care Provider [phone] Eren Cr MD Unavailable [phone] Yohana Bowen MD Unavailable Sabrina Willard NP Unavailable [phone] Reason for Visit * Reason Comments Psychotherapy Encounter Details Date Type Department Care Team (Late st Contact Info) Description 10/26/2020 11:00 AM CDT Clinical Support [address] 1st [place] [address] Neeru Nails, PhD [facility] [place] [address] Social History Tobacco Use Types Packs/Day Years Used Date Smoking Tobacco: Never Smokeless Tobacco: Never Alcohol Use Standard Drinks/Week Comments Yes 1 (1 standard drink = 0.6 oz pur e alcohol) Comments No Sex and Gender Information Value Date Recorded Sex Assigned at Not on file 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 [...] video session alone at her home in [place] while provider was in [place]. There were no interruptions or disruptions in [...] on filedocumented in this encounter Care Teams Gm Relationship Specialty Start Date End Date Julio César Briseno MD PCP - General 10/01/16 Eren Cr MD Referring Physician Medical Oncology 11/25/18 Yohana Bowen MD Radiation Oncologist Radiation Oncology 11/25/18 Sabrina Willard NP [address] [place] [address] Nurse Practitioner Medical Oncology 08/17/20 11/26/21 documented as of this encounter
--- OUTSIDE RECORDS SUMMARY | 2024-06-26 02:13 | XMS_ITS | Encounter Summary ---
Author Organization [facility] Address [address] [place] [address] Phone Care Team Providers Care Unit Reactor Operator Name Role Phone Julio César Briseno MD Primary Care Provider [phone] Eren Cr MD Unavailable [phone] Yohana Bowen MD Unavailable Sabrina Willard NP Unavailable [phone] 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) Procedures OR OCTREOTIDE INJECTION, DEPOT Octreotide 28 Day Cycles - Carcinoid Eren Cr MD [address] [facility] [address] [place] [address] Phone: tel: fax: [facility] [address] [address] Phone: tel: fax: Referral ID Status Reason Start Date Expiration Date V isits Requested Visits Authorized [id number] Authorized 11/28/2017 02/05/2025 1 150 Encounter Details Date Type Department Care Team (Late st Contact Info) Description 01/02/2021 2:00 PM CDT Lab [facility] Oncology [address] [facility] 7th [place] [address] [place] [address] Neuroendocrine carcinoma (CMS/HCC); Malignant neoplasm metastatic to [...] 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 Department [place] [address] * TSH (01/30/2021 2:10 PM CDT) [facility] Thyroid Stimulating Hormone 1.76 0.30 - 4.20 mcIUnit/mL [facility] Blood specimen (specimen) 01/30/2021 2:10 PM CDT 01/30/2021 3:27 PM CDT Eren Cr MD LAB BLOOD ORDERABLES Final Re sult Performing Organization Address [facility] Co de Phone Number [facility] Department [place] [address] * (ABNORMAL) Differential, auto (01/02/2021 2:17 PM CDT) [facility] Neutrophil abs 3.9 1.8 - 6.6 K/cumm [facility] Comment:Testing performed by : [facility], [address] [place] [phone] Lymphocyte abs 0.5(L) 1.2 - 3.3 K/cumm [facility] Comment:Testing performed by : [facility], [address] [place] [phone] Monocyte abs 0.7 0.2 - 1.2 K/cumm [facility] Comment:Testing performed by : [facility], [address] [place] [phone] Eosinophil abs 0.1 0.0 - 0.5 K/cumm [facility] Comment:Testing performed by : [facility], [address] [place] [phone] Basophil abs 0.0 0.0 - 0.2 K/cumm [facility] Comment:Testing performed by : [facility], [address] [place] [phone] Neutrophil pct 76.0 % [facility] Comment: Interpretive Data Percent cell count reference ranges are not reported, since discordance with absolute values may lead to misinterpretation of CBC data. Current Interpretive Data was last revised on 2017. Testing performed by: [facility], [address] [place] [phone] Lymphocyte pct 8.7 % [facility] Comment: Interpretive Data Percent cell count reference ranges are not reported, since discordance with absolute values may lead to misinterpretation of CBC data. Current Interpretive Data was last revised on 2017. Testing performed by: [facility], [address] [place] [phone] Monocyte pct 12.9 % [facility] Comment:Testing performed by : [facility], [address] [place] [phone] Eosinophil pct 1.8 % [facility] Comment:Testing performed by : [facility], [address] [place] [phone] Basophil pct 0.6 % [facility] Comment:Testing performed by : [facility], [address] [place] [phone] Blood specimen (specimen) 01/02/2021 2:17 PM CDT 01/02/2021 2:19 PM CDT Eren Cr MD LAB BLOOD ORDERABLES Final Re sult [facility] Department [place] [address] * (ABNORMAL) Lipid panel (01/02/2021 2:17 PM CDT) [facility] Cholesterol 133 30 - 199 mg/dL [facility] Comment: Interpretive Data Ages < or [...] revised on 2018. Triglycerides 253(H) <=149 mg/dL [facility] Comment: Interpretive Data Ages < or [...] revised on 2018. HDL 57 >=40 mg/dL [facility] Comment: Interpretive Data Ages < [...] on 2018. LDL, calculated 25 <=129 mg/dL [facility] Comment: Interpretive Data Ages < or [...] revised on 2018. Non-HDL Cholesterol 76 mg/dL [facility] Comment: Interpretive Data Ages < or [...] [facility] Department [place] [address] * (ABNORMAL) CBC with auto differential (01/02/2021 2:17 PM CDT) WBC 5.2 3.8 - 9.8 K/cumm [facility] Comment:Testing performed by : [address] [address] Hgb 13.1 12.1 - 15.1 g/dL [facility] Comment:Testing performed by : [address] [address] Hct 37.5 36.1 - 44.3 % [facility] Comment:Testing performed by : [address] [address] Plt 134(L) 140 - 440 K/cumm [facility] Comment:Testing performed by : [address] [address] MPV 7.6 6.8 - 10.4 fL [facility] Comment:Testing performed by : [address] [address] RBC 4.07 3.90 - 5.00 M/cumm [facility] Comment:Testing performed by : [address] [address] MCV 92.1 80.0 - 97.6 fL [facility] Comment:Testing performed by : [address] [address] MCH 32.1 26.7 - 33.7 pg [facility] Comment:Testing performed by : [address] [address] MCHC 34.9 32.7 - 35.5 g/dL [facility] Comment:Testing performed by : [facility], [address] [place] [phone] RDW CV 13.6 11.8 - 14.6 % [facility] Comment:Testing performed by : [facility], [address] [place] [phone] NRBC abs 0.00 0.00 - 0.01 K/cumm [facility] Comment:Testing performed by : [facility], [address] [place] [phone] Blood specimen (specimen) 01/02/2021 2:17 PM CDT 01/02/2021 2:19 PM CDT us Eren Cr MD LAB BLOOD ORDERABLES Final Re sult [facility] Department [place] [address] * (ABNORMAL) Comprehensive metabolic panel (01/02/2021 2:17 PM CDT) Sodium 141 135 - 145 mmol/L [facility] Comment:Testing performed by : [facility], [address] [place] [phone] Potassium, pl 3.8 3.3 - 4.9 mmol/L [facility] Comment:Testing performed by : [facility], [address] [place] [phone] Chloride 106 97 - 110 mmol/L [facility] Comment:Testing performed by : [facility], [address] [place] [phone] CO2 28 22 - 32 mmol/L [facility] Comment:Testing performed by : [facility], [address] [place] [phone] Anion gap 7 2 - 15 mmol/L [facility] Comment:Testing performed by : [facility], [address] [place] [phone] BUN 12 8 - 25 mg/dL [facility] Comment:Testing performed by : [facility], [address] [place] [phone] Creatinine 0.89 0.60 - 1.10 mg/dL [facility] Comment:Testing performed by : [address] [phone] Glucose 109 70 - 199 mg/dL [facility] [...] was last revised 2017. Testing performed by: [place] [phone] Calcium 10.7(H) 8.5 - 10.3 mg/dL [facility] Comment:Testing performed by : [address] [address] Bilirubin, total 0.5 0.1 - 1.2 mg/dL [facility] Comment:Testing performed by : [address] [address] Protein, pl 7.1 6.5 - 8.5 g/dL [facility] Comment:Testing performed by : [address] [address] Albumin 4.5 3.5 - 5.0 g/dL [facility] Comment:Testing performed by : [address] [address] Alk phos 91 40 - 130 Units/L [facility] Comment:Testing performed by : [address] [address] ALT 18 7 - 45 Units/L [facility] Comment:Testing performed by : [address] [address] AST 21 10 - 45 Units/L [facility] Comment:Testing performed by : [facility], [address] [facility] [address] Blood specimen (specimen) 01/02/2021 2:17 PM CDT 01/02/2021 2:19 PM CDT Eren Cr MD LAB BLOOD ORDERABLES Final Re sult Performing Organization Address [facility]/ZIP Co de Phone Number [facility] [place] [address] * Hepatitis panel, acute (01/02/2021 2:05 PM CDT) Hep A IgM Nonreactive Nonreactive [facility] Comment: Interpretive Data: If Hep A IgM Ab is reported as Equivocal, a new sample should be drawn in two weeks for testing. Current interpretive data was last revised on 19. Hep B core IgM Nonreactive Nonreactive [facility] Comment: Interpretive Data If HepB Core IgM Ab is reported as Equivocal, a new sample should be drawn in two weeks for testing. Current interpretive data was last revised on 19. Hep C Ab Nonreactive Nonreactive [facility] Comment:Antibodies to HCV no t detected. Does NOT exclude the possibility of recent exposure to HCV. HepBsAg Nonreactive Nonreactive [facility] Blood specimen (specimen) 01/02/2021 2:05 PM CDT 01/02/2021 2:37 PM CDT Eren Cr MD LAB MICROBIOLOGY - GENERAL OR DERABLES Edited Result - Final Performing Organization Address [facility]/ZIP Co de Phone Number [facility] [place] [address] * (ABNORMAL) Chromogranin A (01/02/2021 2:05 PM CDT) Chromogranin A 779(H) <93 ng/mL [facility] Comment: Impaired [...] a homogeneous time-resolved immunofluorescent assay manufactured by [employer] and performed on the [employer] Kryptor Compact Plus. ? Values obtained with different assay methods or kits may be different and cannot be used interchangeably. ? Test results cannot be interpreted as absolute evidence for the presence or absence of malignant disease. Test Performed by: [facility] [address] [place] [address] Health And Safety Trainer: Immanuel Novak M.D. Ph.D.; CLIA# [id number] Blood specimen (specimen) 01/02/2021 2:05 PM CDT 01/02/2021 4:06 PM CDT us Eren Cr MD LAB BLOOD ORDERABLES Final Re sult [facility] Department [place] [address] documented in this encounter Visit [...] 01/02/2021 documented in this encounter Care Teams Unit Reactor Operator Relationship Specialty Start Date End Date Julio César Briseno MD PCP - General 10/01/16 Eren Cr MD Referring Physician Medical Oncology 11/25/18 Yohana Bowen MD Radiation Oncologist Radiation Oncology 11/25/18 Sabrina Willard NP [address] [place] [address] Nurse Practitioner Medical Oncology 08/17/20 11/26/21 documented as of this encounter
--- OUTSIDE RECORDS SUMMARY | 2024-06-26 02:13 | XMS_ITS | Encounter Summary ---
Author Organization [facility] Address [address] [place] [address] Phone Care Team Providers Care User Interface Developer Name Role Phone Julio César Briseno MD Primary Care Provider [phone] Eren Cr MD Unavailable [phone] Yohana Bowen MD Unavailable Sabrina Willard NP Unavailable [phone] Encounter Details Date Type Department Care Team (Late st Contact Info) Description 12/06/2020 Orders Only [facility] Oncology [address] [place] [address] Sabrina Willard, FAMILY PRACTICE NURSE PRACTITIONER [address] [place] [address] Social History Tobacco Use Types Packs/Day Years Used Date Smoking Tobacco: Never Smokeless Tobacco: Never Alcohol Use Standard Drinks/Week Comments Yes 1 (1 standard drink = 0.6 oz pur e alcohol) Comments No Sex and Gender Information Value Date Recorded Sex Assigned at Not on file 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 Gender Identity Not on file Sexual Orientation Straight 02/19/2021 9: 29 AM CDT Occupation Industry Job Start Date Job End Date retired Not on file Not on file Not on file documented as of this encounter Plan of Treatment Not on file documented as of this encounter Visit Diagnoses Not on filedocumented in this encounter Care Teams User Interface Developer Relationship Specialty Start Date End Date Julio César Briseno MD PCP - General 10/01/16 Eren Cr MD Referring Physician Medical Oncology 11/25/18 Yohana Bowen MD Radiation Oncologist Radiation Oncology 11/25/18 Sabrina Willard NP [address] [place] [address] Nurse Practitioner Medical Oncology 08/17/20 11/26/21 documented as of this encounter
--- OUTSIDE RECORDS SUMMARY | 2024-06-26 02:13 | XMS_ITS | Encounter Summary ---
Author Organization [facility] Address [address] [place] [address] Care Team Providers Care Notched Blade Loader Name Role Phone Julio César Briseno MD Primary Care Provider [phone] Eren Cr MD Unavailable Yohana Bowen MD Unavailable Sabrina Willard NP Unavailable [phone] Encounter Details Date Type Department Care Team (Latest Contact Info) Description 11/07/2020 Orders Only Oncology Eren Cr MD [address] [facility] [address] [place], [place] [address] Social History Tobacco Use Types Packs/Day Years Used Date Smoking Tobacco: Never Smokeless Tobacco: Never Alcohol Use Standard Drinks/Week Comments Yes 1 (1 standard drink = 0.6 oz pur e alcohol) Comments No Sex and Gender Information Value Date Recorded Sex Assigned at Not on file 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 Gender Identity Not on file Sexual Orientation Straight 02/19/2021 9: 29 AM CDT Occupation Industry Job Start Date Job End Date retired Not on file Not on file Not on file documented as of this encounter Plan of Treatment Not on file documented as of this encounter Visit Diagnoses Not on filedocumented in this encounter Care Teams Notched Blade Loader Relationship Specialty Start Date End Date Julio César Briseno MD PCP - General 10/01/16 Eren Cr MD Referring Physician Medical Oncology 11/25/18 Yohnaa Bowen MD Radiation Oncologist Radiation Oncology 11/25/18 Sabrina Willard NP [address] [place] [address] Nurse Practitioner Medical Oncology 08/17/20 11/26/21 documented as of this encounter
--- OUTSIDE RECORDS SUMMARY | 2024-06-26 02:13 | XMS_ITS | Encounter Summary ---
Author Organization [facility] Healthcare Address [address] [place] [address] Care Team Providers Care Chief Deputy Court Clerk Name Role Phone Julio César Briseno MD Primary Care Provider [phone] Eren Cr MD Unavailable [phone] Yohana Bowen MD Unavailable Sabrina Willard NP Unavailable [phone] Reason for Referral * MRI/CAT/PET Scan (Routine) - Closed Specialty Diagnoses / Procedures Referred By Evelyne bowman Referred To Contact Radiology Diagnoses Neuroendocrine carcinoma (HCC) Procedures PET/CT Dotatate Skull to Thigh Eren Cr MD [address] [place] [address] Phone: tel: fax: [address] [address] Referral ID Status Reason Start Date Expiration Date Visits Re quested Visits Authorized [id number] Closed 12/09/2020 01/08/2022 1 1 Reason for Visit * MRI/CAT/PET Scan (Routine) - Closed Specialty Diagnoses / Procedures Referred By Contac t Referred To Contact Radiology Diagnoses Neuroendocrine carcinoma (HCC) Procedures PET/CT Dotatate Skull to Thigh Eren Cr MD [address] [facility] [address] [place] [address] Phone: tel: fax: [facility] [address] [facility] [place] [address] Referral ID Status Reason Start Date Expiration Date Visits Re quested Visits Authorized [id number] Closed 12/09/2020 01/08/2022 1 1 Encounter Details Date Type Department Care Team (Latest Contact Info) Description 12/27/2020 2:05 PM CDT - 12/27/2020 11:59 PM CDT Hospital Encounter [facility] [address] [place] [address] Eren Cr MD [address] [facility] [address] [place] [address] Neuroendocrine carcinoma (CMS/HCC) Discharge Disposition: Discharge to home or self care Social History Tobacco Use Types Packs/Day Years Used Date Smoking Tobacco: Never Smokeless Tobacco: Never Alcohol Use Standard Drinks/Week Comments Yes 1 (1 standard drink = 0.6 oz pur e alcohol) Comments No Sex and Gender Information Value Date Recorded Sex Assigned at Not on file 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 Gender Identity Not on file Sexual [...] capsuleIndications :supplement Take 1 tablet by mouth sugarcane planter before breakfast 07/04/2016 4 cholecalciferol (VITAMIN D-3) 2,000 unit capsule Take 1 capsule (2,000 Units total) by mouth daily 30 capsule 2 04/25/2019 3 cholestyramine (QUESTRAN) 4 gram packet Take 1 packet by mouth 3 (three) times a day with meals 270 packet 3 09/04/2019 2 clotrimazole-betam ethasone (LOTRISONE) cream Apply 1 Application topically daily as needed (rash) 4 coenzyme [id number] E 100-5 mg-unit capsuleIndications :supplement Take 1 tablet by mouth sugarcane planter before breakfast 4 denosumab (XGEVA) 120 mg/1.7 [...] obtained. ??The study was interpreted on the [employer] workstation. ?? Scanned area: skull vertex to [...] obtained. The study was interpreted on the [employer] workstation. Scanned area: skull vertex to the [...] 12/27/2020 documented in this encounter Care Teams Chief Deputy Court Clerk Relationship Specialty Start Date End Date Julio César Briseno MD PCP - General 10/01/16 Eren Cr MD Referring Physician Medical Oncology 11/25/18 Yohana Bowen MD Radiation Oncologist Radiation Oncology 11/25/18 Sabrina Willard NP [address] [place] [address] Nurse Practitioner Medical Oncology 08/17/20 11/26/21 documented as of this encounter
--- OUTSIDE RECORDS SUMMARY | 2024-06-26 02:13 | XMS_ITS | Encounter Summary ---
Author Organization [facility] Address [address] [place] [address] Care Team Providers Care Surveyor Instrument Assistant Name Role Phone Julio César Briseno MD Primary Care Provider [phone] Eren Cr MD Unavailable [phone] Yohana Bowen MD Unavailable Sabrina Willard NP Unavailable [phone] Reason for Referral * Diagnostic Imaging (Routine) - Closed Specialty Diagnoses / Procedures Referred By Contac t Referred To Contact Diagnoses Closed displaced fracture of head of right radius with routine healing, subsequent encounter Procedures XR Elbow Right 2 Views Lu Garcia MD Phone: tel: [facility] Referral ID Status Reason Start Date Expiration Date Visits Re quested Visits Authorized [id number] Closed 12/29/2020 01/28/2022 1 1 Reason for Visit * Diagnostic Imaging (Routine) - Closed Specialty Diagnoses / Procedures Referred By Contac t Referred To Contact Diagnoses Closed displaced fracture of head of right radius with routine healing, subsequent encounter Procedures XR Elbow Right 2 Views Lu Garcia MD Phone: tel: [facility] Referral ID Status Reason Start Date Expiration Date Visits Re quested Visits Authorized [id number] Closed 12/29/2020 01/28/2022 1 1 Encounter Details Date Type Department Care Team (Latest Contact Info) Description 01/04/2021 12:35 PM CDT - 01/04/2021 11:59 PM CDT Hospital Encounter [facility] Radiology [facility] [address] [place] [address] Lu Garcia MD [address] [place] [address] Closed displaced fracture of head of right [...] on file 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 Gender Identity Not on file Sexual Orientation [...] capsuleIndications :supplement Take 1 tablet by mouth yardage caller before breakfast 07/04/2016 4 cholecalciferol (VITAMIN D-3) 2,000 unit capsule Take 1 capsule (2,000 Units total) by mouth daily 30 capsule 2 04/25/2019 3 cholestyramine (QUESTRAN) 4 gram packet Take 1 packet by mouth 3 (three) times a day with meals 270 packet 3 09/04/2019 2 clotrimazole-betam ethasone (LOTRISONE) cream Apply 1 Application topically daily as needed (rash) 4 coenzyme [id number] E 100-5 mg-unit capsuleIndications :supplement Take 1 tablet by mouth yardage caller before breakfast 4 denosumab (XGEVA) 120 mg/1.7 [...] encounter documented in this encounter Care Teams Surveyor Instrument Assistant Relationship Specialty Start Date End Date Julio César Briseno MD PCP - General 10/01/16 Eren Cr MD Referring Physician Medical Oncology 11/25/18 Yohana Bowen MD Radiation Oncologist Radiation Oncology 11/25/18 Sabrina Willard NP [address] [place] [address] Nurse Practitioner Medical Oncology 08/17/20 11/26/21 documented as of this encounter
--- OUTSIDE RECORDS SUMMARY | 2024-06-26 02:13 | XMS_ITS | Encounter Summary ---
Author Organization [facility] Address [address] [place] [address] Phone Care Team Providers Care Strategic Sourcing Specialist Name Role Phone Julio César Briseno MD Primary Care Provider [phone] Eren Cr MD Unavailable [phone] Yohana Bowen MD Unavailable Sabrina Willard NP Unavailable [phone] 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) Procedures RI OCTREOTIDE INJECTION, DEPOT Octreotide 28 Day Cycles - Carcinoid Eren Cr MD [address] [facility] [address] [place] [address] Phone: tel: fax: [facility] [address] [address] Phone: tel: fax: Referral ID Status Reason Start Date Expiration Date V isits Requested Visits Authorized [id number] Authorized 11/28/2017 02/05/2025 1 150 Encounter Details Date Type Department Care Team (Late st Contact Info) Description 11/07/2020 3:45 PM CDT Lab [facility] Oncology [facility] 7th [place] [address] [place] [address] Neuroendocrine carcinoma (CMS/HCC); Malignant neoplasm metastatic to liver (CMS/HCC) Social History Tobacco Use Types Packs/Day Years Used Date Smoking Tobacco: Never Smokeless Tobacco: Never Alcohol Use Standard Drinks/Week Comments Yes 1 (1 standard drink = 0.6 oz pur e alcohol) Comments No Sex and Gender Information Value Date Recorded Sex Assigned at Not on file 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 Gender Identity Not on file Sexual [...] JASON BLACK Comment:Testing performed by : [facility], [address], [place] [address] Lymphocyte abs 0.5(L) 1.2 - 3.3 K/cumm [facility] Comment:Testing performed by : [facility], [address] [place] [phone] Monocyte abs 0.6 0.2 - 1.2 K/cumm [facility] Comment:Testing performed by : [facility], [address] [place] [phone] Eosinophil abs 0.1 0.0 - 0.5 K/cumm [facility] Comment:Testing performed by : [facility], [address] [place] [phone] Basophil abs 0.0 0.0 - 0.2 K/cumm [facility] Comment:Testing performed by : [facility], [address] [place] [phone] Neutrophil pct 74.1 % [facility] Comment: Interpretive Data Percent cell count reference ranges are not reported, since discordance with absolute values may lead to misinterpretation of CBC data. Current Interpretive Data was last revised on 2017. Testing performed by: [facility], [address] [place] [phone] Lymphocyte pct 10.6 % [facility] Comment: Interpretive Data Percent cell count reference ranges are not reported, since discordance with absolute values may lead to misinterpretation of CBC data. Current Interpretive Data was last revised on 2017. Testing performed by: [facility], [address] [place] [phone] Monocyte pct 12.4 % [facility] Comment:Testing performed by : [facility], [address] [place] [phone] Eosinophil pct 2.1 % [facility] Comment:Testing performed by : [facility], [address] [place] [phone] Basophil pct 0.8 % [facility] Comment:Testing performed by : [facility], [address] [place] [phone] Blood specimen (specimen) 11/07/2020 4:02 PM CDT 11/07/2020 4:04 PM CDT us Eren Cr MD LAB BLOOD ORDERABLES Final Re sult [facility] Department [place] [address] * (ABNORMAL) CBC with auto differential (11/07/2020 4:02 PM CDT) WBC 5.0 3.8 - 9.8 K/cumm JASON BLACK Comment:Testing performed by : [facility], [address] [place] [phone] Hgb 13.2 12.1 - 15.1 g/dL JASON BLACK Comment:Testing performed by : [address] [address] Hct 38.3 36.1 - 44.3 % JASON BLACK Comment:Testing performed by : [address] [address] Plt 136(L) 140 - 440 K/cumm JASON BLACK Comment:Testing performed by : [facility], [address] [place] [phone] MPV 7.7 6.8 - 10.4 fL JASON [facility] Comment:Testing performed by : [address] [address] RBC 4.13 3.90 - 5.00 M/cumm JASON BLACK Comment:Testing performed by : [address] [address] MCV 92.8 80.0 - 97.6 fL JASON BLACK Comment:Testing performed by : [address] [address] MCH 32.0 26.7 - 33.7 pg JASON BLACK Comment:Testing performed by : [address] [address] MCHC 34.5 32.7 - 35.5 g/dL JASON BLACK Comment:Testing performed by : [address] [address] RDW CV 13.5 11.8 - 14.6 % JASON BLACK Comment:Testing performed by : [facility], [address] [place] [phone] NRBC abs 0.00 0.00 - 0.01 K/cumm JASON BLACK Comment:Testing performed by : [facility], [address] [place] [phone] Blood specimen (specimen) 11/07/2020 4:02 PM CDT 11/07/2020 4:04 PM CDT us Eren Cr MD LAB BLOOD ORDERABLES Final Re sult JASON BLACK [facility] Department [place] [address] * (ABNORMAL) Comprehensive metabolic panel (11/07/2020 4:02 PM CDT) Sodium 141 135 - 145 mmol/L JASON BLACK Comment:Testing performed by : [facility], [address] [place] [phone] Potassium, pl 3.8 3.3 - 4.9 mmol/L JASON BLACK Comment:Testing performed by : [facility], [address] [place] [phone] Chloride 104 97 - 110 mmol/L JASON BLACK Comment:Testing performed by : [facility], [address] [place] [phone] CO2 28 22 - 32 mmol/L JASON BLACK Comment:Testing performed by : [facility], [address] [place] [phone] Anion gap 9 2 - 15 mmol/L JASON BLACK Comment:Testing performed by : [facility], [address] [place] [phone] BUN 13 8 - 25 mg/dL JASON BLACK Comment:Testing performed by : [facility], [address] [place] [phone] Creatinine 0.97 0.60 - 1.10 mg/dL JASON BLACK Comment:Testing performed by : [facility], [address] [place] [phone] Glucose 101 70 - 199 mg/dL CERNER [...] last revised 2017. Testing performed by: [facility], [address] [place] [address] Calcium 10.9(H) 8.5 - 10.3 mg/dL CERNER [facility] Comment:Testing performed by : [place] [phone] Bilirubin, total 0.5 0.1 - 1.2 mg/dL CERNER [facility]J Comment:Testing performed by : [facility], [address] [place], [place] [phone] Protein, pl 7.0 6.5 - 8.5 g/dL CERNER [facility] Comment:Testing performed by : [address] [phone] Albumin 4.6 3.5 - 5.0 g/dL CERNER [facility] Comment:Testing performed by : [address] [phone] Alk phos 93 40 - 130 Units/L CERNER [facility]J Comment:Testing performed by : [place] [phone] ALT 18 7 - 45 Units/L CERNER [facility]J Comment:Testing performed by : [place] [phone] AST 22 10 - 45 Units/L CERNER [facility]J Comment:Testing performed by : [address] [phone] Blood specimen (specimen) 11/07/2020 4:02 PM CDT 11/07/2020 4:04 PM CDT Eren Cr MD LAB BLOOD ORDERABLES Final Re sult Performing Organization Address [facility] Co de Phone Number JASON BLACK [facility] [place] [address] * (ABNORMAL) Chromogranin A (11/07/2020 4:02 PM CDT) Pathologist [facility] Chromogranin A 628(H) <93 ng/mL [facility] Comment: Impaired renal or hepatic function [...] a homogeneous time-resolved immunofluorescent assay manufactured by [employer] and performed on the [employer] Kryptor Compact Plus. ? Values obtained with different assay methods or kits may be different and cannot be used interchangeably. ? Test results cannot be interpreted as absolute evidence for the presence or absence of malignant disease. Test Performed by: [place] [address] Radio Host: Immanuel Novak M.D. Ph.D.; CLIA# [id number] Blood specimen (specimen) 11/07/2020 4:02 PM CDT 11/07/2020 5:05 PM CDT Eren Cr MD LAB BLOOD ORDERABLES Final Re sult Performing Organization Address [facility] Co de Phone Number [facility] [place] [address] * Phosphorus (11/07/2020 4:02 PM CDT) Pathologist [facility] Phosphorus, pl 3.4 2.3 - 4.5 mg/dL JASON [facility] Comment:Testing performed by : [facility], [address] [place] [phone] Blood specimen (specimen) 11/07/2020 4:02 PM CDT 11/07/2020 4:04 PM CDT us Sabrina Willard MARGARINE MAKER LAB BLOOD ORDERABLES Final R esult [facility] Department [place] [address] documented in this encounter Visit Diagnoses Diagnosis Neuroendocrine carcinoma (HCC) Other malignant neoplasm of unspecified site Malignant neoplasm metastatic to liver (HCC) documented in this encounter Orders Appointment Requests Count Last Ordered Date Fi rst Ordered Date ONCBCN LAB APPOINTMENT 1 11/07/2020 documented in this encounter Care Teams Strategic Sourcing Specialist Relationship Specialty Start Date End Date Julio César Briseno MD PCP - General 10/01/16 Eren Cr MD Referring Physician Medical Oncology 11/25/18 Yohana Bowen MD Radiation Oncologist Radiation Oncology 11/25/18 Sabrina Willard NP [facility] [address] [place] [address] Nurse Practitioner Medical Oncology 08/17/20 11/26/21 documented as of this encounter
--- OUTSIDE RECORDS SUMMARY | 2024-06-26 02:13 | XMS_ITS | Encounter Summary ---
Author Organization [facility] Address [address] [place] [address] Phone Care Team Providers Care Ribbon Lapper Tender Name Role Phone Julio César Briseno MD Primary Care Provider Eren Cr MD Unavailable [phone] Yohana Bowen MD Unavailable Sabrina Willard NP Unavailable Encounter Details Date Type Department Care Team (Late st Contact Info) Description 11/16/[address] 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 Gender Identity Not on file Sexual Orientation Straight 02/19/2021 9: 29 AM CDT Occupation Industry Job Start Date Job End Date retired Not on file Not on file Not on file documented as of this encounter Plan of Treatment Not on file documented as of this encounter Visit Diagnoses Not on filedocumented in this encounter Care Teams Ribbon Lapper Tender Relationship Specialty Start Date End Date Julio César Briseno MD PCP - General 10/01/16 Eren Cr MD Referring Physician Medical Oncology 11/25/18 Yohana Bowen MD Radiation Oncologist Radiation Oncology 11/25/18 Sabrina Willard NP [address] [place] [address] Nurse Practitioner Medical Oncology 08/17/20 11/26/21 documented as of this encounter
--- OUTSIDE RECORDS SUMMARY | 2024-06-26 02:13 | XMS_ITS | Encounter Summary ---
Author Organization [facility] Address [address] [place] [address] Phone Care Team Providers Care Consulting Services Project Manager Name Role Phone Julio César Briseno MD Primary Care Provider [phone] Eren Cr MD Unavailable Yohana Bowen MD Unavailable Sabrina Willard NP Unavailable [phone] 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) Procedures SC OCTREOTIDE INJECTION, DEPOT Octreotide 28 Day Cycles - Carcinoid Eren Cr MD [address] [facility] [address] [place] [address] Phone: tel: fax: [facility] Cancer [address] [address] Phone: tel: fax: Referral ID Status Reason Start Date Expiration Date V isits Requested Visits Authorized [id number] Authorized 11/28/2017 02/05/2025 1 150 Encounter Details Date Type Department Care Team (Late st Contact Info) Description 01/02/2021 2:30 PM CDT Office Visit [facility] Oncology [address] [facility] 7th [place] [address] [place] [address] Eren Cr MD [address] [facility] [address] [place] [address] Neuroendocrine carcinoma (CMS/HCC) (Primary Dx); Malignant neoplasm [...] file 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 Greyson Reeves. Biopsy [...] mg capsule, Take 1 tablet by mouth cabinet maker before breakfast, Disp: , Rfl: ??? cholecalciferol (VITAMIN D-3) 2,000 unit capsule, Take 1 capsule (2,000 Units total) by mouth daily (Patient taking differently: Take 2,000 Units by mouth daily ), Disp: 30 capsule, Rfl: 2 ??? clotrimazole-betamethasone (LOTRISONE) cream, clotrimazole-betamethasone 1 %-0.05 % topical cream APPLY EXTERNALLY TO ABDOMEN TWICE DAILY NEEDED, Disp: , Rfl: ??? coenzyme X93-[id number] E (CO Q-10, WITH VIT E,) 100-5 mg-unit capsule, Take by mouth cabinet maker before breakfast , Disp: , Rfl: ??? denosumab (XGEVA) 120 mg/1.7 mL (70 mg/mL) injection, Inject under the skin every 30 (thirty) days, Disp: , Rfl: ??? DULoxetine DR (CYMBALTA) 30 mg capsule, Take 1 capsule (30 mg total) by mouth daily (Patient taking differently: Take 30 mg by mouth cabinet maker before breakfast ), Disp: 30 capsule, Rfl: [...] per tablet, Take 0.5 tablets by mouth cabinet maker before breakfast decrease dosage to 0.5 [...] obtained. The study was interpreted on the [employer] workstation. Scanned area: skull vertex to the [...] Chromogranin A (01/30/2021 2:10 PM CDT) Pathologist [facility] Chromogranin A 1181(H) <93 ng/mL JASON BLACK Comment: Impaired renal or hepatic function or treatment with proton pump inhibitors may result in artifactual elevations of Chromogranin A. ADDITIONAL INFORMATION This test was developed and its performance characteristics determined by [facility] in a manner consistent with CLIA requirements. This test has not been cleared or approved by the U.S. Food and Drug Administration. The testing method is a homogeneous time-resolved immunofluorescent assay manufactured by [employer] and performed on the [employer] Kryptor Compact Plus. ? Values obtained with different assay methods or kits may be different and cannot be used interchangeably. ? Test results cannot be interpreted as absolute evidence for the presence or absence of malignant disease. Test Performed by: [place] [address] Chart Reader: Immanuel Novak M.D. Ph.D.; CLIA# [id number] Blood specimen (specimen) 01/30/2021 2:10 PM CDT 01/30/2021 3:40 PM CDT Eren Cr MD LAB BLOOD ORDERABLES Final Re sult [facility] Department [place] [address] * (ABNORMAL) Comprehensive metabolic panel (01/30/2021 2:10 PM CDT) Sodium 136 135 - 145 mmol/L CERNER BJ Comment:Testing performed by : [facility], [address] [place] [phone] Potassium, pl 4.5 3.3 - 4.9 mmol/L CERNER BJ Comment:Testing performed by : [facility], [address] [place] [phone] Chloride 103 97 - 110 mmol/L CERNER [facility]J Comment:Testing performed by : [facility], [address] [place] [phone] CO2 23 22 - 32 mmol/L CERNER [facility]J Comment:Testing performed by : [facility], [address] [place] [phone] Anion gap 10 2 - 15 mmol/L CERNER [facility]J Comment:Testing performed by : [facility], [address] [place] [phone] BUN 23 8 - 25 mg/dL CERNER BJ Comment:Testing performed by : [facility], [address] [place] [phone] Creatinine 1.19(H) 0.60 - 1.10 mg/dL CERNER BJ Comment:Testing performed by : [facility], [address] [place] [phone] Glucose 133 70 - 199 mg/dL CERNER [facility] Comment: Interpretive Data Fasting glucose >/= 126 [...] was last revised 2017. Testing performed by: [facility], [address] [place] [phone] Calcium 10.4(H) 8.5 - 10.3 mg/dL CERNER BJ Comment:Testing performed by : [facility], [address] [place] [phone] Bilirubin, total 0.3 0.1 - 1.2 mg/dL JASON [facility] Comment:Testing performed by : [facility], [address] [place] [phone] Protein, pl 7.2 6.5 - 8.5 g/dL JASON BLACK Comment:Testing performed by : [facility], [address] [place] [phone] Albumin 4.3 3.5 - 5.0 g/dL JASON [facility] Comment:Testing performed by : [facility], [address] [place] [phone] Alk phos 120 40 - 130 Units/L JASON [facility] Comment:Testing performed by : [facility], [address] [place], [place] [phone] ALT 28 7 - 45 Units/L JASON [facility] Comment:Testing performed by : [facility], [address] [place] [phone] AST 35 10 - 45 Units/L JASON [facility] Comment:Testing performed by : [facility], [address] [place] [phone] Blood specimen (specimen) 01/30/2021 2:10 PM CDT 01/30/2021 2:12 PM CDT Eren Cr MD LAB BLOOD ORDERABLES Final Re sult [facility] One [facility] [place] [address] * (ABNORMAL) CBC with auto differential (01/30/2021 2:10 PM CDT) WBC 3.1(L) 3.8 - 9.8 K/cumm JASON [facility] Comment:Testing performed by : [facility], [address] [place] [phone] Hgb 13.7 12.1 - 15.1 g/dL JASON BLACK Comment:Testing performed by : [address] [phone] Hct 40.0 36.1 - 44.3 % [facility] Comment:Testing performed by : [facility], [address] [place], [place] [phone] Plt 92(L) 140 - 440 K/cumm JASON [facility] Comment:Testing performed by : [facility], [address] [place], [place] [phone] MPV 8.2 6.8 - 10.4 fL [facility] Comment:Testing performed by : [place] [address] RBC 4.34 3.90 - 5.00 M/cumm JASON [facility] Comment:Testing performed by : [facility], [address] [place] [address] MCV 92.1 80.0 - 97.6 fL JASON [facility] Comment:Testing performed by : [facility], [address] [place], [place] [phone] MCH 31.6 26.7 - 33.7 pg JASON [facility] Comment:Testing performed by : [facility], [address] [place], [place] [phone] MCHC 34.3 32.7 - 35.5 g/dL [facility] Comment:Testing performed by : [place] [phone] RDW CV 13.1 11.8 - 14.6 % [facility] Comment:Testing performed by : [address] [phone] NRBC abs 0.00 0.00 - 0.01 K/cumm [facility] Comment:Testing performed by : [facility], [address] [place], [place] [phone] Blood specimen (specimen) 01/30/2021 2:10 PM CDT 01/30/2021 2:12 PM CDT us Eren Cr MD LAB BLOOD ORDERABLES Final Re sult [facility] One [facility] [place] [address] documented in this encounter Visit Diagnoses Diagnosis [...] 01/30/2021 documented in this encounter Care Teams Consulting Services Project Manager Relationship Specialty Start Date End Date Julio César Briseno MD PCP - General 10/01/16 Eren Cr MD Referring Physician Medical Oncology 11/25/18 Yohana Bowen MD Radiation Oncologist Radiation Oncology 11/25/18 Sabrina Willard NP [address] [place] [address] Nurse Practitioner Medical Oncology 08/17/20 11/26/21 documented as of this encounter
--- OUTSIDE RECORDS SUMMARY | 2024-06-26 02:13 | XMS_ITS | Encounter Summary ---
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) Procedures [place] OCTREOTIDE INJECTION, DEPOT Octreotide 28 Day Cycles - Carcinoid Eren Cr MD [address] [facility] [address] [place] [address] Phone: tel: fax: [facility] [address] [address] Phone: tel: fax: Referral ID Status Reason Start Date Expiration Date V isits Requested Visits Authorized [id number] Authorized 11/28/2017 02/05/2025 1 150 Encounter Details Date Type Department Care Team (Late st Contact Info) Description 12/06/2020 3:00 PM CDT Lab [facility] Oncology [address] [place] [address] 7th [place] [address] Neuroendocrine carcinoma (CMS/HCC); Malignant neoplasm metastatic to liver (CMS/HCC) Social History Tobacco Use Types Packs/Day Years Used Date Smoking Tobacco: Never Smokeless Tobacco: Never Alcohol Use Standard Drinks/Week Comments Yes 1 (1 standard drink = 0.6 oz pur e alcohol) Comments No Sex and Gender Information Value Date Recorded Sex Assigned at Not on file 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 Gender Identity Not on file Sexual [...] Comment:Testing performed by : [facility], [address] [place] [phone] Lymphocyte abs 0.4(L) 1.2 - 3.3 K/cumm JASON BLACK Comment:Testing performed by : [facility], [address] [place] [phone] Monocyte abs 0.6 0.2 - 1.2 K/cumm CERNER BJ Comment:Testing performed by : [facility], [address] [place] [phone] Eosinophil abs 0.2 0.0 - 0.5 K/cumm CERNER BJ Comment:Testing performed by : [facility], [address] [place] [phone] Basophil abs 0.0 0.0 - 0.2 K/cumm CERNER BJ Comment:Testing performed by : [facility], [address] [place] [phone] Neutrophil pct 76.4 % CERNER BJ Comment: Interpretive Data Percent cell count reference ranges are not reported, since discordance with absolute values may lead to misinterpretation of CBC data. Current Interpretive Data was last revised on 2017. Testing performed by: [facility], [address] [place] [phone] Lymphocyte pct 8.5 % CERNER BJ Comment: Interpretive Data Percent cell count reference ranges are not reported, since discordance with absolute values may lead to misinterpretation of CBC data. Current Interpretive Data was last revised on 2017. Testing performed by: [facility], [address] [place] [phone] Monocyte pct 11.7 % CERNER BJ Comment:Testing performed by : [facility], [address] [place] [phone] Eosinophil pct 3.0 % CERMINNIE BJ Comment:Testing performed by : [facility], [address] [place] [phone] Basophil pct 0.4 % CERNER BJ Comment:Testing performed by : [facility], [address] [place] [phone] Blood specimen (specimen) 12/06/2020 3:09 PM CDT 12/06/2020 3:10 PM CDT us Eren Cr MD LAB BLOOD ORDERABLES Final Re sult JASON BLACK [facility] Department [place] [address] * Comprehensive metabolic panel (12/06/2020 3:09 PM CDT) Sodium 138 135 - 145 mmol/L [facility] Comment:Testing performed by : [facility], [address] [place] [phone] Potassium, pl 3.8 3.3 - 4.9 mmol/L [facility] Comment:Testing performed by : [facility], [address] [place] [phone] Chloride 103 97 - 110 mmol/L [facility] Comment:Testing performed by : [facility], [address] [place] [phone] CO2 31 22 - 32 mmol/L [facility] Comment:Testing performed by : [facility], [address] [place] [phone] Anion gap 4 2 - 15 mmol/L [facility] Comment:Testing performed by : [facility], [address] [place] [phone] BUN 16 8 - 25 mg/dL [facility] Comment:Testing performed by : [facility], [address] [place] [phone] Creatinine 0.97 0.60 - 1.10 mg/dL [facility] Comment:Testing performed by : [facility], [address] [place] [phone] Glucose 137 70 - 199 mg/dL [facility] Comment: Interpretive Data Fasting glucose >/= [...] was last revised 2017. Testing performed by: [facility], [address] [place] [phone] Calcium 10.1 8.5 - 10.3 mg/dL [facility] Comment:Testing performed by : [facility], [address] [place] [phone] Bilirubin, total 0.4 0.1 - 1.2 mg/dL [facility] Comment:Testing performed by : [facility], [address] [place] [phone] Protein, pl 6.6 6.5 - 8.5 g/dL [facility] Comment:Testing performed by : [facility], [address] [place] [phone] Albumin 4.2 3.5 - 5.0 g/dL [facility] Comment:Testing performed by : [facility], [address] [place] [phone] Alk phos 116 40 - 130 Units/L [facility] Comment:Testing performed by : [facility], [address] [place] [phone] ALT 17 7 - 45 Units/L [facility] Comment:Testing performed by : [facility], [address] [place] [phone] AST 21 10 - 45 Units/L [facility] Comment:Testing performed by : [facility], [address] [place] [phone] Blood specimen (specimen) 12/06/2020 3:09 PM CDT 12/06/2020 3:10 PM CDT Eren Cr MD LAB BLOOD ORDERABLES Final Re sult [facility] Department [place] [address] * (ABNORMAL) CBC with auto differential (12/06/2020 3:09 PM CDT) WBC 5.2 3.8 - 9.8 K/cumm [facility] Comment:Testing performed by : [facility], [address] [place] [phone] Hgb 12.0(L) 12.1 - 15.1 g/dL [facility] Comment:Testing performed by : [facility], [address] [place], [place] [phone] Hct 35.1(L) 36.1 - 44.3 % CERNER BJ Comment:Testing performed by : [facility], [address] [place] [address] Plt 153 140 - 440 K/cumm CERMINNIE BJ Comment:Testing performed by : [facility], [address] [place], [place] [phone] MPV 7.4 6.8 - 10.4 fL CERMINNIE BJ Comment:Testing performed by : [facility], [address] [place] [address] RBC 3.74(L) 3.90 - 5.00 M/cumm CERMINNIE BJ Comment:Testing performed by : [place] [address] MCV 93.9 80.0 - 97.[address] [facility] Comment:Testing performed by : [facility], [address] [place], [place] [phone] MCH 32.1 26.7 - 33.[address] [facility] Comment:Testing performed by : [place] [address] MCHC 34.2 32.7 - 35.5 g/dL [facility] Comment:Testing performed by : [place] [phone] RDW CV 13.8 11.8 - 14.6 % [facility] Comment:Testing performed by : [facility], [address] [place], [place] [phone] NRBC abs 0.00 0.00 - 0.01 K/cumm [facility] Comment:Testing performed by : [place] [address] Blood specimen (specimen) 12/06/2020 3:09 PM CDT 12/06/2020 3:10 PM CDT Eren Cr MD LAB BLOOD ORDERABLES Final Re sult [facility] Department [place] [address] * (ABNORMAL) Chromogranin A (12/06/2020 2:55 PM CDT) Chromogranin A 789(H) <93 ng/mL JASON BLACK Comment: Impaired renal or hepatic function or treatment with proton pump inhibitors may result in artifactual elevations of Chromogranin A. ADDITIONAL INFORMATION This test was developed and its performance characteristics determined by [facility] in a manner consistent with CLIA requirements. This test has not been cleared or approved by the U.S. Food and Drug Administration. The testing method is a homogeneous time-resolved immunofluorescent assay manufactured by [employer] and performed on the [employer] Kryptor Compact Plus. ? Values obtained with different assay methods or kits may be different and cannot be used interchangeably. ? Test results cannot be interpreted as absolute evidence for the presence or absence of malignant disease. Test Performed by: [facility] [address] [place] [address] Waterproofing Mixer: Immanuel Novak M.D. Ph.D.; CLIA# [id number] Blood specimen (specimen) 12/06/2020 2:55 PM CDT 12/06/2020 8:00 PM CDT Eren Cr MD LAB BLOOD ORDERABLES Final Re sult [facility]ON [facility] Department [place] [address] documented in this encounter Visit Diagnoses Diagnosis Neuroendocrine carcinoma (HCC) Other malignant neoplasm of unspecified site Malignant neoplasm metastatic to liver (HCC) documented in this encounter Orders Appointment Requests Count Last Ordered Date Fi rst Ordered Date ONCBCN LAB APPOINTMENT 1 12/06/2020 documented in this encounter Care Teams Event Specialist Food Demonstrator Relationship Specialty Start Date End Date Julio César Briseno MD PCP - General 10/01/16 Eren Cr MD Referring Physician Medical Oncology 11/25/18 Yohana Bowen MD Radiation Oncologist Radiation Oncology 11/25/18 Sabrina Willard NP [address] [place] [address] Nurse Practitioner Medical Oncology 08/17/20 11/26/21 documented as of this encounter
--- OUTSIDE RECORDS SUMMARY | 2024-06-26 02:13 | XMS_ITS | Encounter Summary ---
Author Organization [facility] Address [address] [place] [address] Phone Care Team Providers Care Advertising Sales Agent Name Role Phone Julio César Briseno MD Primary Care Provider Eren Cr MD Unavailable Yohana Bowen MD Unavailable Sabrina Willard NP Unavailable Encounter Details Date Type Department Care Team (Late st Contact Info) Description 12/28/[address] 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 Triglycerides 253(H) <=149 mg/dL [facility] Comment: Interpretive Data Ages < [...] revised on 2018. HDL 57 >=40 mg/dL [facility] Comment: Interpretive [...] on 2018. LDL, calculated 25 <=129 mg/dL [facility] Comment: Interpretive [...] revised on 2018. 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
--- OUTSIDE RECORDS SUMMARY | 2024-06-26 02:13 | XMS_ITS | Encounter Summary ---
Author Organization [facility] Address [address] [place] [address] Phone Care Team Providers Care Design Printing Machine Set Up Operator Name Role Phone Julio César Briseno MD Primary Care Provider Eren Cr MD Unavailable [phone] Yohana Bowen MD Unavailable Sabrina Willard NP Unavailable [phone] Encounter Details Date Type Department Care Team (Late st Contact Info) Description 01/04/2021 Documentation [facility] Orthopaedic Surgery [address] [facility] Advanced Medicine 6th [place] [address] [place] [phone] Lu Garcia MD [address] [place] [address] Social History Tobacco Use Types Packs/Day Years Used Date Smoking Tobacco: Never Smokeless Tobacco: Never Alcohol Use Standard Drinks/Week Comments Yes 1 (1 standard drink = 0.6 oz pur e alcohol) Comments No Sex and Gender Information Value Date Recorded Sex Assigned at Not on file 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 documented in this encounter Plan of Treatment Not on file documented as of this encounter Visit Diagnoses Not on filedocumented in this encounter Care Teams Design Printing Machine Set Up Operator Relationship Specialty Start Date End Date Julio César Briseno MD PCP - General 10/01/16 Eren Cr MD Referring Physician Medical Oncology 11/25/18 Yohana Bowen MD Radiation Oncologist Radiation Oncology 11/25/18 Sabrina Willard NP [address] [place] [address] Nurse Practitioner Medical Oncology 08/17/20 11/26/21 documented as of this encounter
--- OUTSIDE RECORDS SUMMARY | 2024-06-26 02:13 | XMS_ITS | Encounter Summary ---
Author Organization [facility] Address [address] [place] [address] Care Team Providers Care Carrier Washer Name Role Phone Julio César Briseno MD Primary Care Provider [phone] Eren Cr MD Unavailable [phone] Yohana Bowen MD Unavailable Sabrina Willard NP Unavailable [phone] Reason for Referral * MRI/CAT/PET Scan (Routine) - Closed Specialty Diagnoses / Procedures Referred By Evelyne bowman Referred To Contact Radiology Diagnoses 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) Procedures CT soft tissue neck with contrast Eren Cr MD [address] [place] [address] Phone: tel: fax: [address] [address] Referral ID Status Reason Start Date Expiration Date Visits Re quested Visits Authorized [id number] Closed 08/15/2020 09/14/2021 1 1 * MRI/CAT/PET Scan (Routine) - Closed Specialty Diagnoses / Procedures Referred By Contellen Referred To Contact Radiology Diagnoses 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) Procedures CT chest abdomen pelvis with contrast Eren Cr MD [address] [facility] [address] [place] [address] Phone: tel: fax: [address] [phone] Referral ID Status Reason Start Date Expiration Date Visits Re quested Visits Authorized [id number] Closed 08/15/2020 09/14/2021 1 1 Reason for Visit * MRI/CAT/PET Scan (Routine) - Closed Specialty Diagnoses / Procedures Referred By Contac t Referred To Contact Radiology Diagnoses 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) Procedures CT soft tissue neck with contrast Eren Cr MD [address] [facility] [address] [place] [address] Phone: tel: fax: [address] [phone] Referral ID Status Reason Start Date Expiration Date Visits Re quested Visits Authorized [id number] Closed 08/15/2020 09/14/2021 1 1 Encounter Details Date Type Department Care Team (Latest Contact Info) Description 11/11/2020 2:00 PM CDT - 11/11/2020 11:59 PM CDT Hospital Encounter [facility] [address] [place] [address] Eren Cr MD [address] 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 Gender Identity Not on file Sexual Orientation [...] capsuleIndications :supplement Take 1 tablet by mouth agricultural adviser before breakfast 07/04/2016 4 cholecalciferol (VITAMIN D-3) 2,000 unit capsule Take 1 capsule (2,000 Units total) by mouth daily 30 capsule 2 04/25/2019 3 cholestyramine (QUESTRAN) 4 gram packet Take 1 packet by mouth 3 (three) times a day with meals 270 packet 3 09/04/2019 2 clotrimazole-betam ethasone (LOTRISONE) cream Apply 1 Application topically daily as needed (rash) 4 coenzyme P45-sokrxce E 100-5 mg-unit capsuleIndications :supplement Take 1 tablet by mouth agricultural adviser before breakfast 4 denosumab (XGEVA) 120 mg/1.7 [...] are normal. The limited view of the [place] is unremarkable. The visualized portions [...] are normal. The limited view of the [place] is unremarkable. The visualized portions of the [...] Manny Loya M.D., Ph.D Eren Cr MD [facility] CT PROCEDURES Final Resul t documented in [...] 11/11/2020 documented in this encounter Care Teams Carrier Washer Relationship Specialty Start Date End Date Julio César Briseno MD PCP - General 10/01/16 Eren Cr MD Referring Physician Medical Oncology 11/25/18 Yohana Bowen MD Radiation Oncologist Radiation Oncology 11/25/18 Sabrina Willard NP [address] [place] [address] Nurse Practitioner Medical Oncology 08/17/20 11/26/21 documented as of this encounter
--- OUTSIDE RECORDS SUMMARY | 2024-06-26 02:13 | XMS_ITS | Encounter Summary ---
Author Organization [facility] Address [address] [place] [address] Phone Care Team Providers Care Freight Checker Name Role Phone Julio César Briseno MD Primary Care Provider [phone] Eren Cr MD Unavailable Yohana Bowen MD Unavailable Sabrina Willard NP Unavailable Encounter Details Date Type Department Care Team (Late st Contact Info) Description 10/11/2020 Orders Only [facility] Oncology [address] 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 Gender Identity Not on file Sexual Orientation Straight 02/19/2021 9: 29 AM CDT Occupation Industry Job Start Date Job End Date retired Not on file Not on file Not on file documented as of this encounter Plan of Treatment Not on file documented as of this encounter Visit Diagnoses Not on filedocumented in this encounter Care Teams Freight Checker Relationship Specialty Start Date End Date Julio César Briseno MD PCP - General 10/01/16 Eren Cr MD Referring Physician Medical Oncology 11/25/18 Yohana Bowen MD Radiation Oncologist Radiation Oncology 11/25/18 Sabrina Willard NP [address] [place] [address] Nurse Practitioner Medical Oncology 08/17/20 11/26/21 documented as of this encounter
--- OUTSIDE RECORDS SUMMARY | 2024-06-26 02:13 | XMS_ITS | Encounter Summary ---
Author Organization [facility] Address [address] [place] [address] Phone Care Team Providers Care Field Naturalist Name Role Phone Julio César Briseno MD Primary Care Provider [phone] Eren Cr MD Unavailable [phone] Yohana Bowen MD Unavailable Sabrina Willard NP Unavailable Encounter Details Date Type Department Care Team (Late st Contact Info) Description 12/06/2020 Orders Only [facility] Oncology [address] [facility] Advanced Medicine 7th [place] [address] [place] [phone] Eren Cr MD [address] [facility] [address] [place] [address] Social History Tobacco Use Types Packs/Day Years Used Date Smoking Tobacco: Never Smokeless Tobacco: Never Alcohol Use Standard Drinks/Week Comments Yes 1 (1 standard drink = 0.6 oz pur e alcohol) Comments No Sex and Gender Information Value Date Recorded Sex Assigned at Not on file 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 Gender Identity Not on file Sexual Orientation Straight 02/19/2021 9: 29 AM CDT Occupation Industry Job Start Date Job End Date retired Not on file Not on file Not on file documented as of this encounter Plan of Treatment Not on file documented as of this encounter Visit Diagnoses Not on filedocumented in this encounter Care Teams Field Naturalist Relationship Specialty Start Date End Date Julio César Briseno MD PCP - General 10/01/16 Eren Cr MD Referring Physician Medical Oncology 11/25/18 Yohana Bowen MD Radiation Oncologist Radiation Oncology 11/25/18 Sabrina Willard NP [address] [place] [address] Nurse Practitioner Medical Oncology 08/17/20 11/26/21 documented as of this encounter
--- OUTSIDE RECORDS SUMMARY | 2024-06-26 02:13 | XMS_ITS | Encounter Summary ---
Author Organization [facility] Address [address] [place] [address] Phone Care Team Providers Care Assistant Professor Of Radiology Name Role Phone Julio César Briseno MD Primary Care Provider Eren Cr MD Unavailable Yohana Bowen MD Unavailable Sabrina Willard NP Unavailable Encounter Details Date Type Department Care Team (Late st Contact Info) Description 12/16/2020 Orders Only [facility] Oncology [address] [facility] Advanced Medicine 7th [place] [address] [place] [phone] Eren Cr MD [address] [facility] [address] [place] [address] 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); Neuroendocrine carcinoma (CMS/HCC) Social History Tobacco Use Types Packs/Day Years Used Date Smoking Tobacco: Never Smokeless Tobacco: Never Alcohol Use Standard Drinks/Week Comments Yes 1 (1 standard drink = 0.6 oz pur e alcohol) Comments No Sex and Gender Information Value Date Recorded Sex Assigned at Not on file 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, [address] [place] [phone] Potassium, pl 3.8 3.3 - 4.9 mmol/L CERNER BJ Comment:Testing performed by : [facility], [address] [place] [phone] Chloride 106 97 - 110 mmol/L CERNER BJ Comment:Testing performed by : [facility], [address] [place] [phone] CO2 28 22 - 32 mmol/L CERNER BJ Comment:Testing performed by : [facility], [address] [place] [phone] Anion gap 7 2 - 15 mmol/L CERNER BJ Comment:Testing performed by : [facility], [address] [place] [phone] BUN 12 8 - 25 mg/dL CERNER BJ Comment:Testing performed by : [facility], [address] [place] [address] Creatinine 0.89 0.60 - 1.10 mg/dL CERNER BJ Comment:Testing performed by : [address] [address] Glucose 109 70 - 199 mg/dL CERNER [facility] Comment: Interpretive Data Fasting glucose >/= [...] was last revised 2017. Testing performed by: [facility], [address] [place] [phone] Calcium 10.7(H) 8.5 - 10.3 mg/dL CERMINNIE [facility] Comment:Testing performed by : [facility], [address] [place] [phone] Bilirubin, total 0.5 0.1 - 1.2 mg/dL CERMINNIE [facility] Comment:Testing performed by : [facility], [address] [place] [phone] Protein, pl 7.1 6.5 - 8.5 g/dL CERMINNIE [facility] Comment:Testing performed by : [facility], [address] [place] [phone] Albumin 4.5 3.5 - 5.0 g/dL CERMINNIE [facility] Comment:Testing performed by : [address] [address] Alk phos 91 40 - 130 Units/L CERMINNIE [facility] Comment:Testing performed by : [facility], [address] [place] [phone] ALT 18 7 - 45 Units/L CERMINNIE [facility] Comment:Testing performed by : [address] [address] AST 21 10 - 45 Units/L CERMINNIE [facility] Comment:Testing performed by : [address] [phone] Blood specimen (specimen) 01/02/2021 2:17 PM CDT 01/02/2021 2:19 PM CDT us Eren Cr MD LAB BLOOD ORDERABLES Final Re sult [facility] [place] [address] * (ABNORMAL) CBC with auto differential (01/02/2021 2:17 PM CDT) WBC 5.2 3.8 - 9.8 K/cumm JASON [facility] Comment:Testing performed by : [facility], [address] [place], [place] [id number] Hgb 13.1 12.1 - 15.1 g/dL CERNER BJ Comment:Testing performed by : [facility], [address] [place], [place] [phone] Hct 37.5 36.1 - 44.3 % CERNER [facility] Comment:Testing performed by : [facility], [address] [place] [address] Plt 134(L) 140 - 440 K/cumm CERNER BJ Comment:Testing performed by : [facility], [address] [place], [place] [phone] MPV 7.6 6.8 - 10.4 fL CERNER BJ Comment:Testing performed by : [place] [address] RBC 4.07 3.90 - 5.00 M/cumm CERNER BJ Comment:Testing performed by : [place] [address] MCV 92.1 80.0 - 97.6 fL CERNER BJ Comment:Testing performed by : [facility], [address] [place], [place] [phone] MCH 32.1 26.7 - 33.7 pg CERNER BJ Comment:Testing performed by : [place] [phone] MCHC 34.9 32.7 - 35.5 g/dL CERNER BJ Comment:Testing performed by : [place] [address] RDW CV 13.6 11.8 - 14.6 % CERNER BJ Comment:Testing performed by : [facility], [address] [place], [place] [phone] NRBC abs 0.00 0.00 - 0.01 K/cumm CERNER BJ Comment:Testing performed by : [place] [phone] Blood specimen (specimen) 01/02/2021 2:17 PM CDT 01/02/2021 2:19 PM CDT Eren Cr MD LAB BLOOD ORDERABLES Final Re sult Performing Organization Address [facility]/ZIP Co de Phone Number JASON BLACK [facility] [place] [place] [address] * (ABNORMAL) Chromogranin A (01/02/2021 2:05 PM CDT) Chromogranin A 779(H) <93 ng/mL GREGMINNIE BLACK Comment: Impaired renal or hepatic function or treatment with proton pump inhibitors may result in artifactual elevations of Chromogranin A. ADDITIONAL INFORMATION This test was developed and its performance characteristics determined by [facility] in a manner consistent with CLIA requirements. This test has not been cleared or approved by the U.S. Food and Drug Administration. The testing method is a homogeneous time-resolved immunofluorescent assay manufactured by [employer] and performed on the Ce[employer] Kr[employer]rus[employer] Compact Plus. ? Values obtained with different assay methods or kits may be different and cannot be used interchangeably. ? Test results cannot be interpreted as absolute evidence for the presence or absence of malignant disease. Test Performed by: [place] [address] Curriculum Specialist: Immanuel Novak M.D. Ph.D.; CLIA# [id number] Blood specimen (specimen) 01/02/2021 2:05 PM CDT 01/02/2021 4:06 PM CDT Eren Cr MD LAB BLOOD ORDERABLES Final Re sult Performing Organization Address City/[facility]/ZIP Co de Phone Number JASON BLACK [facility] [place] [address] documented in this encounter Visit Diagnoses Diagnosis Malignant neoplasm metastatic to liver (HCC)- Primary Neuroendocrine carcinoma (HCC) Other malignant neoplasm of unspecified site documented in this encounter Orders Appointment Requests Count Last Ordered Date Fi rst Ordered Date ONCBCN CLINIC APPOINTMENT REQUEST 1 021 ONCBCN INJECTION APPOINTMENT REQUEST 1 12/07 ONCBCN LAB APPOINTMENT 1 01/02/2021 documented in this encounter Care Teams Assistant Professor Of Radiology Relationship Specialty Start Date End Date Julio César Briseno MD PCP - General 10/01/16 Eren Cr MD Referring Physician Medical Oncology 11/25/18 Yohana Bowen MD Radiation Oncologist Radiation Oncology 11/25/18 Sabrina Willard NP [address] [place] [address] Nurse Practitioner Medical Oncology 08/17/20 11/26/21 documented as of this encounter
--- OUTSIDE RECORDS SUMMARY | 2024-06-26 02:13 | XMS_ITS | Encounter Summary ---
Author Organization [facility] Healthcare Address [address] [place] [address] Care Team Providers Care Reimbursement Counselor Name Role Phone Julio César Briseno MD Primary Care Provider [phone] Eren Cr MD Unavailable [phone] Yohana Bowen MD Unavailable Sabrina Willard NP Unavailable [phone] Reason for Visit * Reason Comments Psychotherapy Encounter Details Date Type Department Care Team (Late st Contact Info) Description 09/19/2020 9:00 AM CDT Clinical Support [address] 1st [place] [phone] Neeru Nails, PhD [address] [place] [address] Social History Tobacco Use Types Packs/Day Years Used Date Smoking Tobacco: Never Smokeless Tobacco: Never Alcohol Use Standard Drinks/Week Comments Yes 1 (1 standard drink = 0.6 oz pur e alcohol) Comments No Sex and Gender Information Value Date Recorded Sex Assigned at Not on file 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 Gender Identity Not on file Sexual Orientation Straight 02/19/2021 9: 29 AM CDT Occupation Industry Job Start Date Job End Date retired Not on file Not on file Not on file documented as of this encounter Progress Notes * Neeru Nails, PhD - 09/19/2020 9:00 AM CDT [facility] PS[facility]CH[facility] SERV[facility] RETURN VISIT [...] the way she manages her pain from [employer] advice she has been mostly pain free [...] on filedocumented in this encounter Care Teams Reimbursement Counselor Relationship Specialty Start Date End Date Julio César Briseno MD PCP - General 10/01/16 Eren Cr MD Referring Physician Medical Oncology 11/25/18 Yohana Bowen MD Radiation Oncologist Radiation Oncology 11/25/18 Sabrina Willard NP [address] [place] [address] Nurse Practitioner Medical Oncology 08/17/20 11/26/21 documented as of this encounter
--- OUTSIDE RECORDS SUMMARY | 2024-06-26 02:13 | XMS_ITS | Encounter Summary ---
Author Organization [facility] Address [address] [place] [address] Phone Care Team Providers Care Ballistician Name Role Phone Julio César Briseno MD Primary Care Provider [phone] Eren Cr MD Unavailable [phone] Yohana Bowen MD Unavailable Sabrina Willard NP Unavailable [phone] 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) Procedures [place] OCTREOTIDE INJECTION, DEPOT Octreotide 28 Day Cycles - Carcinoid Eren Cr MD [address] [facility] [address] [place] [address] Phone: tel: fax: [facility] [address] [address] Phone: tel: fax: Referral ID Status Reason Start Date Expiration Date V isits Requested Visits Authorized [id number] Authorized 11/28/2017 02/05/2025 1 150 Encounter Details Date Type Department Care Team (Late st Contact Info) Description 01/02/2021 3:30 PM CDT Infusion 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 [...] First Orde red Date ONCBCN NURSING COMMUNICATION [id number] 1 01/02 Appointment Requests Count Last Ordered Date Fi rst Ordered Date ONCBCN INJECTION APPOINTMENT REQUEST 12/07 documented in this encounter Care Teams Ballistician Relationship Specialty Start Date End Date Julio César Briseno MD PCP - General 10/01/16 Erne Cr MD Referring Physician Medical Oncology 11/25/18 Yohana Bowen MD Radiation Oncologist Radiation Oncology 11/25/18 Sabrina Willard NP [facility] [address] [place] [address] Nurse Practitioner Medical Oncology 08/17/20 11/26/21 documented as of this encounter
--- OUTSIDE RECORDS SUMMARY | 2024-06-26 02:13 | XMS_ITS | Encounter Summary ---
Author Organization [facility] Address [address] [place] [address] Phone Care Team Providers Care Bulk Picker Name Role Phone Julio César Briseno MD Primary Care Provider Eren Cr MD Unavailable [phone] Yohana Bowen MD Unavailable Sabrina Willard NP Unavailable [phone] Encounter Details Date Type Department Care Team (Late st Contact Info) Description 11/25/2020 Orders Only [facility] Orthopaedic Surgery [address] [facility] Advanced Medicine 6th [place] [address] [place] [address] Lu Garcia MD [address] [place] [address] Closed displaced fracture of head of right radius, initial encounter (Primary Dx) Social History Tobacco Use Types Packs/Day Years Used Date Smoking Tobacco: Never Smokeless Tobacco: Never Alcohol Use Standard Drinks/Week Comments Yes 1 (1 standard drink = 0.6 oz pur e alcohol) Comments No Sex and Gender Information Value Date Recorded Sex Assigned at Not on file 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
--- OUTSIDE RECORDS SUMMARY | 2024-06-26 02:13 | XMS_ITS | Encounter Summary ---
Author Organization [facility] Address [address] [place] [address] Phone Care Team Providers Care Neurological Surgeon Name Role Phone Julio César Briseno MD Primary Care Provider Eren Cr MD Unavailable [phone] Yohana Bowen MD Unavailable Sabrina Willard NP Unavailable Reason for Visit * Reason Onset Date Comments appointment 12/19/20 12/16/2020 Encounter Details Date Type Department Care Team (Late st Contact Info) Description 12/16/2020 Telephone [facility] Oncology [address] 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 documented in this encounter Plan of Treatment Not on file documented as of this encounter Visit Diagnoses Not on filedocumented in this encounter Care Teams Neurological Surgeon Relationship Specialty Start Date End Date Julio César Briseno MD PCP - General 10/01/16 Eren Cr MD Referring Physician Medical Oncology 11/25/18 Yohana Bowen MD Radiation Oncologist Radiation Oncology 11/25/18 Sabrina Willard NP [address] [place] [address] Nurse Practitioner Medical Oncology 08/17/20 11/26/21 documented as of this encounter
--- OUTSIDE RECORDS SUMMARY | 2024-06-26 02:13 | XMS_ITS | Encounter Summary ---
Author Organization [facility] Address [address] [place] [address] Phone Care Team Providers Care Linux Unix Administrator Name Role Phone Julio César Briseno MD Primary Care Provider [phone] Eren Cr MD Unavailable [phone] Yohana Bowen MD Unavailable Sabrina Willard NP Unavailable [phone] 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) Procedures [place] OCTREOTIDE INJECTION, DEPOT Octreotide 28 Day Cycles - Carcinoid Eren Cr MD [address] [facility] [address] [place] [address] Phone: tel: fax: [facility] [address] [address] Phone: tel: fax: Referral ID Status Reason Start Date Expiration Date V isits Requested Visits Authorized [id number] Authorized 11/28/2017 02/05/2025 1 150 Encounter Details Date Type Department Care Team (Late st Contact Info) Description 10/10/2020 3:45 PM CDT Lab 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 Gender Identity Not on file Sexual [...] by : [facility], [address] [place] [phone] Lymphocyte abs 0.5(L) 1.2 - 3.3 K/cumm JASON BLACK Comment:Testing performed by : [facility], [address] [place] [phone] Monocyte abs 0.7 0.2 - 1.2 K/cumm CERNER BJ Comment:Testing performed by : [facility], [address] [place] [phone] Eosinophil abs 0.1 0.0 - 0.5 K/cumm CERNER BJ Comment:Testing performed by : [facility], [address] [place] [phone] Basophil abs 0.0 0.0 - 0.2 K/cumm CERNER BJ Comment:Testing performed by : [facility], [address] [place] [phone] Neutrophil pct 70.9 % CERNER BJ Comment: Interpretive Data Percent cell count reference ranges are not reported, since discordance with absolute values may lead to misinterpretation of CBC data. Current Interpretive Data was last revised on 2017. Testing performed by: [facility], [address] [place] [phone] Lymphocyte pct 11.1 % CERNER BJ Comment: Interpretive Data Percent cell count reference ranges are not reported, since discordance with absolute values may lead to misinterpretation of CBC data. Current Interpretive Data was last revised on 2017. Testing performed by: [facility], [address] [place] [phone] Monocyte pct 14.4 % CERNER BJ Comment:Testing performed by : [facility], [address] [place] [phone] Eosinophil pct 2.9 % CERNER BJ Comment:Testing performed by : [facility], [address] [place] [phone] Basophil pct 0.7 % CERNER BJ Comment:Testing performed by : [facility], [address] [place] [phone] Blood specimen (specimen) 10/10/2020 4:02 PM CDT 10/10/2020 4:05 PM CDT us Eren Cr MD LAB BLOOD ORDERABLES Final Re sult JASON BLACK [facility] Department [place] [address] * (ABNORMAL) CBC with auto differential (10/10/2020 4:02 PM CDT) WBC 4.5 3.8 - 9.8 K/cumm CERMINNIE BJ Comment:Testing performed by : [facility], [address] [place] [phone] Hgb 13.0 12.1 - 15.1 g/dL CERMINNIE BJ Comment:Testing performed by : [facility], [address] [place] [phone] Hct 38.0 36.1 - 44.3 % CERMINNIE BJ Comment:Testing performed by : [place] [phone] Plt 130(L) 140 - 440 K/cumm CERMINNIE BJ Comment:Testing performed by : [address] [phone] MPV 7.3 6.8 - 10.4 fL CERMINNIE BJ Comment:Testing performed by : [place] [phone] RBC 4.11 3.90 - 5.00 M/cumm CERMINNIE BJ Comment:Testing performed by : [place] [phone] MCV 92.3 80.0 - 97.6 fL CERMINNIE BJ Comment:Testing performed by : [address] [phone] MCH 31.6 26.7 - 33.7 pg CERMINNIE BJ Comment:Testing performed by : [address] [phone] MCHC 34.2 32.7 - 35.5 g/dL CERMINNIE BJ Comment:Testing performed by : [address] [phone] RDW CV 13.5 11.8 - 14.6 % CERMINNIE BJ Comment:Testing performed by : [address] [phone] NRBC abs 0.00 0.00 - 0.01 K/cumm [facility] Comment:Testing performed by : [facility], [address] [place] [phone] Blood specimen (specimen) 10/10/2020 4:02 PM CDT 10/10/2020 4:05 PM CDT us Eren Cr MD LAB BLOOD ORDERABLES Final Re sult [facility] Department [place] [address] * (ABNORMAL) Chromogranin A (10/10/2020 4:02 PM CDT) Chromogranin A 468(H) <93 ng/mL [facility] Comment: Impaired [...] a homogeneous time-resolved immunofluorescent assay manufactured by [employer] and performed on the [employer] Kryptor Compact Plus. ? Values obtained with different assay methods or kits may be different and cannot be used interchangeably. ? Test results cannot be interpreted as absolute evidence for the presence or absence of malignant disease. Test Performed by: [facility] [place] [facility] [address] [place] [address] Mailing Specialist: Immanuel Novak M.D. Ph.D.; CLIA# [id number] Blood specimen (specimen) 10/10/2020 4:02 PM CDT 10/10/2020 4:45 PM CDT us Eren Cr MD LAB BLOOD ORDERABLES Final Re sult JASON BLACK [facility] [place] [address] * (ABNORMAL) Comprehensive metabolic panel (10/10/2020 4:02 PM CDT) Sodium 140 135 - 145 mmol/L CERMINNIE BLACK Comment:Testing performed by : [facility], [address] [place] [phone] Potassium, pl 4.2 3.3 - 4.9 mmol/L CERMINNIE BJ Comment:Testing performed by : [facility], [address] [place] [phone] Chloride 102 97 - 110 mmol/L CERMINNIE BJ Comment:Testing performed by : [facility], [address] [place] [phone] CO2 31 22 - 32 mmol/L CERMINNIE BJ Comment:Testing performed by : [facility], [address] [place] [phone] Anion gap 7 2 - 15 mmol/L CERMINNIE BJ Comment:Testing performed by : [facility], [address] [place] [phone] BUN 15 8 - 25 mg/dL CERMINNIE BJ Comment:Testing performed by : [facility], [address] [place] [phone] Creatinine 1.03 0.60 - 1.10 mg/dL [facility] Comment:Testing performed by : [address] [phone] Glucose 122 70 - 199 mg/dL [facility] Comment: Interpretive Data Fasting glucose [...] 2017. Testing performed by: [facility], [address] [place] [phone] Calcium 11.0(H) 8.5 - 10.3 mg/dL [facility]ER [facility] Comment:Testing performed by : [facility], [address] [place] [phone] Bilirubin, total 0.4 0.1 - 1.2 mg/dL [facility] Comment:Testing performed by : [facility], [address] [place] [phone] Protein, pl 7.3 6.5 - 8.5 g/dL [facility] Comment:Testing performed by : [facility], [address] [place] [phone] Albumin 4.5 3.5 - 5.0 g/dL [facility] Comment:Testing performed by : [facility], [address] [place] [phone] Alk phos 83 40 - 130 Units/L [facility] Comment:Testing performed by : [facility], [address] [place] [phone] ALT 17 7 - 45 Units/L [facility] Comment:Testing performed by : [facility], [address] [place] [phone] AST 22 10 - 45 Units/L [facility] Comment:Testing performed by : [facility], [address] [place] [phone] Blood specimen (specimen) 10/10/2020 4:02 PM CDT 10/10/2020 4:05 PM CDT Eren Cr MD LAB BLOOD ORDERABLES Final Re sult [facility] [place] [address] documented in this encounter Visit Diagnoses Diagnosis Neuroendocrine carcinoma (HCC) Other malignant neoplasm of unspecified site Malignant neoplasm metastatic to liver (HCC) documented in this encounter Orders Appointment Requests Count Last Ordered Date Fi rst Ordered Date ONCBCN LAB APPOINTMENT 1 10/10/2020 documented in this encounter Care Teams Linux Unix Administrator Relationship Specialty Start Date End Date Julio César Briseno MD PCP - General 10/01/16 Eren Cr MD Referring Physician Medical Oncology 11/25/18 Yohana Bowen MD Radiation Oncologist Radiation Oncology 11/25/18 Sabrina Willard NP [address] [place] [address] Nurse Practitioner Medical Oncology 08/17/20 11/26/21 documented as of this encounter
--- OUTSIDE RECORDS SUMMARY | 2024-06-26 02:13 | XMS_ITS | Encounter Summary ---
Author Organization [facility] Address [address] [place] [address] Care Team Providers Care Physical Therapy Asst Name Role Phone Julio César Briseno MD Primary Care Provider [phone] Eren Cr MD Unavailable Yohana Bowen MD Unavailable Sabrina Willard NP Unavailable [phone] Reason for Referral * Diagnostic Imaging (Routine) - Closed Specialty Diagnoses / Procedures Referred By Contac t Referred To Contact Diagnoses Closed extra-articular fracture of distal end of right radius, initial encounter Procedures XR Elbow Right 3 or More Views Lu Garcia MD Phone: tel: [facility] Referral ID Status Reason Start Date Expiration Date Visits Re quested Visits Authorized [id number] Closed 11/30/2020 12/30/2021 1 1 Reason for Visit * Diagnostic Imaging (Routine) - Closed Specialty Diagnoses / Procedures Referred By Contac t Referred To Contact Diagnoses Closed extra-articular fracture of distal end of right radius, initial encounter Procedures XR Elbow Right 3 or More Views Lu Garcia MD Phone: tel: [facility] Referral ID Status Reason Start Date Expiration Date Visits Re quested Visits Authorized [id number] Closed 11/30/2020 12/30/2021 1 1 Encounter Details Date Type Department Care Team (Latest Contact Info) Description 11/30/2020 1:54 PM CDT - 11/30/2020 11:59 PM CDT Hospital Encounter [facility] [address] [place] [address] Lu Garcia MD [address] [place] [address] Closed extra-articular fracture of distal end of [...] file Legal 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 Gender Identity Not on file Sexual [...] capsuleIndications :supplement Take 1 tablet by mouth longwall headgate operator before breakfast 07/04/2016 4 cholecalciferol (VITAMIN D-3) 2,000 unit capsule Take 1 capsule (2,000 Units total) by mouth daily 30 capsule 2 04/25/2019 3 cholestyramine (QUESTRAN) 4 gram packet Take 1 packet by mouth 3 (three) times a day with meals 270 packet 3 09/04/2019 2 clotrimazole-betam ethasone (LOTRISONE) cream Apply 1 Application topically daily as needed (rash) 4 coenzyme [id number] E 100-5 mg-unit capsuleIndications :supplement Take 1 tablet by mouth longwall headgate operator before breakfast 4 denosumab (XGEVA) 120 [...] encounter documented in this encounter Care Teams Physical Therapy Asst Relationship Specialty Start Date End Date Julio César Briseno MD PCP - General 10/01/16 Eren Cr MD Referring Physician Medical Oncology 11/25/18 Yohana Bowen MD Radiation Oncologist Radiation Oncology 11/25/18 Sabrina Willard NP [address] [place] [address] Nurse Practitioner Medical Oncology 08/17/20 11/26/21 documented as of this encounter
--- OUTSIDE RECORDS SUMMARY | 2024-06-26 02:13 | XMS_ITS | Encounter Summary ---
Author Organization [facility] Address [address] [place] [address] Phone Care Team Providers Care Research Group Director Name Role Phone Julio César Briseno MD Primary Care Provider [phone] Eren Cr MD Unavailable Yohana Bowen MD Unavailable Sabrina Willard NP Unavailable Encounter Details Date Type Department Care Team (Late st Contact Info) Description 10/10/2020 Orders Only [facility] Oncology [address] [facility] 7th [place] [address] [place] [address] Sabrina Willard NP [address] [place] [address] Bone metastasis (CMS/HCC) (Primary Dx); Malignant neoplasm [...] on file 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 Gender Identity Not on file Sexual Orientation Straight 02/19/2021 9: 29 AM CDT Occupation Industry Job Start Date Job End Date retired Not on file Not on file Not on file documented as of this encounter Plan of Treatment Not on file documented as of this encounter Results * Phosphorus (11/07/2020 4:02 PM CDT) Phosphorus, pl 3.4 2.3 - 4.5 mg/dL [facility] Comment:Testing performed by : [facility], [address] [place] [phone] Blood specimen (specimen) 11/07/2020 4:02 PM CDT 11/07/2020 4:04 PM CDT Sabrina Willard NP LAB BLOOD ORDERABLES Final R esult Performing Organization Address City/State/[facility] Co de Phone Number [facility] Department of Laboratories [place], [place] [id number] documented in this encounter Visit Diagnoses Diagnosis Bone metastasis- Primary Secondary malignant 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) Neuroendocrine carcinoma (HCC) Other malignant neoplasm of unspecified site documented in this encounter Orders Lab Orders Without Results Count Last Ordered D ate First Ordered Date PHOSPHORUS 1 10/10/2020 documented in this encounter Care Teams Research Group Director Relationship Specialty Start Date End Date Julio César Briseno MD PCP - General 10/01/16 Eren Cr MD Referring Physician Medical Oncology 11/25/18 Yohana Bowen MD Radiation Oncologist Radiation Oncology 11/25/18 Sabrina Willard NP [address] [place] [address] Nurse Practitioner Medical Oncology 08/17/20 11/26/21 documented as of this encounter
--- OUTSIDE RECORDS SUMMARY | 2024-06-26 02:13 | XMS_ITS | Encounter Summary ---
Author Organization 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) Procedures [place] OCTREOTIDE INJECTION, DEPOT Octreotide 28 Day Cycles - Carcinoid Eren Cr MD [address] [facility] [address] [place] [address] Phone: tel: fax: [facility] [address] [address] Phone: tel: fax: Referral ID Status Reason Start Date Expiration Date V isits Requested Visits Authorized [id number] Authorized 11/28/2017 02/05/2025 1 150 Encounter Details Date Type Department Care Team (Late st Contact Info) Description 11/07/2020 4:15 PM CDT Infusion [facility] Oncology [address] [facility] 7th [place] [address] Neuroendocrine carcinoma (CMS/HCC) (Primary Dx); [...] file 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 Gender Identity Not on file Sexual [...] Body Mass Index 32.96 06/23/2020 2:55 PM BRANCH SERVICE ASSOCIATE documented in this encounter Nursing Notes * Minerva Jones, [place] - 11/07/2020 4:15 PM CDT Oncology Nursing Note [facility] ONCOLOGY La Chung is a 70 [...] First Orde red Date ONCBCN NURSING COMMUNICATION [id number] 1 11/07 ONCBCN NURSING COMMUNICATION [id number] 1 0 11/07/2020 PHYSICIAN COMMUNICATION ORDER 1 11/07/2020 Appointment Requests Count Last Ordered Date Fi rst Ordered Date ONCBCN INJECTION APPOINTMENT REQUEST 1 09/2020 documented in this encounter Care Teams Level Vial Sealer Relationship Specialty Start Date End Date Julio César Briseno MD PCP - General 10/01/16 Eren Cr MD Referring Physician Medical Oncology 11/25/18 Yohana Bowen MD Radiation Oncologist Radiation Oncology 11/25/18 Sabrina Willard NP [address] [place] [address] Nurse Practitioner Medical Oncology 08/17/20 11/26/21 documented as of this encounter
--- OUTSIDE RECORDS SUMMARY | 2024-06-26 02:13 | XMS_ITS | Encounter Summary ---
Author Organization [facility] Address [address] [place] [address] Phone Care Team Providers Care Automotive Parts Advisor Name Role Phone Julio César Briseno MD Primary Care Provider Eren Cr MD Unavailable Yohana Bowen MD Unavailable Sabrina Willard NP Unavailable Encounter Details Date Type Department Care Team (Late st Contact Info) Description 12/28/2020 Orders Only [facility] [address] [facility] 7th [place] [address] [place] [address] Eren Cr MD [address] [facility] [address] [place] [address] Neuroendocrine carcinoma (CMS/HCC) (Primary Dx); Malignant neoplasm [...] documented in this encounter Care Teams Automotive Parts Advisor Relationship Specialty Start Date End Date Julio César Briseno MD PCP - General 10/01/16 Eren Cr MD Referring Physician Medical Oncology 11/25/18 Yohana Bowen MD Radiation Oncologist Radiation Oncology 11/25/18 Sabrina Willard NP [address] [place] [address] Nurse Practitioner Medical Oncology 08/17/20 11/26/21 documented as of this encounter
--- OUTSIDE RECORDS SUMMARY | 2024-06-26 02:13 | XMS_ITS | Encounter Summary ---
Author Organization [facility] Address [address] [place] [address] Phone Care Team Providers Care Hamper Maker Machine Name Role Phone Julio César Briseno MD Primary Care Provider [phone] Eren Cr MD Unavailable Yohana Bowen MD Unavailable Sabrina Willard NP Unavailable [phone] Reason for Visit * Reason Comments Injections * Episode Based Medications (Routine) - Authorized Specialty Diagnoses / Procedures Referred By Contac t Referred To Contact Oncology Diagnoses Neuroendocrine carcinoma (HCC) Malignant neoplasm metastatic to liver (HCC) Procedures [place] OCTREOTIDE INJECTION, DEPOT Octreotide 28 Day Cycles - Carcinoid Eren Cr MD [address] [facility] [address] [place] [address] Phone: tel: fax: [address] [address] Phone: tel: fax: Referral ID Status Reason Start Date Expiration Date V isits Requested Visits Authorized [id number] Authorized 11/28/2017 02/05/2025 1 150 Encounter Details Date Type Department Care Team (Late st Contact Info) Description 12/06/2020 3:30 PM CDT Infusion [facility] Oncology [address] [facility] 7th [place] [address] Neuroendocrine carcinoma (CMS/HCC) (Primary Dx); Malignant neoplasm metastatic to liver (CMS/HCC) Social History Tobacco Use Types Packs/Day Years Used Date Smoking Tobacco: Never Smokeless Tobacco: Never Alcohol Use Standard Drinks/Week Comments Yes 1 (1 standard drink = 0.6 oz pur e alcohol) Comments No Sex and Gender Information Value Date Recorded Sex Assigned at Not on file Legal Sex Female 2:41 PM [employer] Gender Identity Not on file Sexual Orientation [...] 12/06/2020 3:30 PM CDT Oncology Nursing Note [facility] [...] 07/2020 documented in this encounter Care Teams Hamper Maker Machine Relationship Specialty Start Date End Date Julio César Briseno MD PCP - General 10/01/16 Eren Cr MD Referring Physician Medical Oncology 11/25/18 Yohana Bowen MD Radiation Oncologist Radiation Oncology 11/25/18 Sabrina Willard NP [address] [place] [address] Nurse Practitioner Medical Oncology 08/17/20 11/26/21 documented as of this encounter
--- OUTSIDE RECORDS SUMMARY | 2024-06-26 02:13 | XMS_ITS | Encounter Summary ---
Author Organization [facility] Address [address] [place] [address] Care Team Providers Care Vacuum Form Operator Name Role Phone Julio César Briseno MD Primary Care Provider [phone] Eren Cr MD Unavailable [phone] Yohana Bowen MD Unavailable Sabrina Willard NP Unavailable [phone] Alejo Mi MD Unavailable [phone] Encounter Details Date Type Department Care Team (Late st Contact Info) Description 12/22/2020 Telephone [facility] [address] [place] [address] Gretchen Ceja, RT Social History Tobacco Use Types Packs/Day Years Used Date Smoking Tobacco: Never Smokeless Tobacco: Never Alcohol Use Standard Drinks/Week Comments Yes 1 (1 standard drink = 0.6 oz pur e alcohol) Comments No Sex and Gender Information Value Date Recorded Sex Assigned at Not on file Legal Sex Female 2:41 PM 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 Gender Identity Not on file Sexual [...] COVID: Suspected 09/04/2021 09/04/2021 09/04/2021 4:06 PM DATA DEVELOPER COVID: Suspected 01/10/2022 01/10/2022 01/10/2022 5:55 PM CDT COVID: Suspected 06/13/2024 06/13/2024 06/13/2024 6:39 PM DATA DEVELOPER documented as of this encounter Care Teams Vacuum Form Operator Relationship Specialty Start Date End Date Julio César Briseno MD PCP - General 10/01/16 Eren Cr MD Referring Physician Medical Oncology 11/25/18 Yohana Bowen MD Radiation Oncologist Radiation Oncology 11/25/18 Sabrina Willard NP [address] [place], [place] [id number] Nurse Practitioner Medical Oncology 08/17/20 11/26/21 Alejo Mi MD [address] [place] [address] Referring Physician Nephrology 03/07/23 documented as of this encounter
--- OUTSIDE RECORDS SUMMARY | 2024-06-26 02:13 | XMS_ITS | Encounter Summary ---
Author Organization [facility] Healthcare Address [address] [place] [address] Care Team Providers Care Nozzle Tender Name Role Phone Julio César Briseno MD Primary Care Provider [phone] Eren Cr MD Unavailable [phone] Yohana Bowen MD Unavailable Sabrina Willard NP Unavailable [phone] Encounter Details Date Type Department Care Team (Latest Contact Info) Description 11/20/2020 1:39 PM CDT - 11/20/2020 11:59 PM CDT Hospital Encounter [facility] [address] [place] [id number] Discharge Disposition: Discharge to home or self care Social History Tobacco Use Types Packs/Day Years Used Date Smoking Tobacco: Never Smokeless Tobacco: Never Alcohol Use Standard Drinks/Week Comments Yes 1 (1 standard drink = 0.6 oz pur e alcohol) Comments No Sex and Gender Information Value Date Recorded Sex Assigned at Not on file Legal 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 Female 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 Gender Identity Not on file Sexual Orientation [...] capsuleIndications :supplement Take 1 tablet by mouth addiction treatment counselor before breakfast 07/04/2016 4 cholecalciferol (VITAMIN D-3) 2,000 unit capsule Take 1 capsule (2,000 Units total) by mouth daily 30 capsule 2 04/25/2019 3 cholestyramine (QUESTRAN) 4 gram packet Take 1 packet by mouth 3 (three) times a day with meals 270 packet 3 09/04/2019 2 clotrimazole-betam ethasone (LOTRISONE) cream Apply 1 Application topically daily as needed (rash) 4 coenzyme T38-iyrllgn E 100-5 mg-unit capsuleIndications :supplement Take 1 tablet by mouth addiction treatment counselor before breakfast 4 denosumab (XGEVA) 120 mg/1.7 [...] by a [facility] Radiologist. Narrative [facility] - 11/20/2020 1:39 PM CDT EXAMINATION: ??Images For Reference Purposes Only us Immanuel Goldstein MD IMG XR PROCEDURES Final Result [facility] documented in this encounter Visit Diagnoses Not on filedocumented in this encounter Care Teams Nozzle Tender Relationship Specialty Start Date End Date Julio César Briseno MD PCP - General 10/01/16 Eren Cr MD Referring Physician Medical Oncology 11/25/18 Yohana Bowen MD Radiation Oncologist Radiation Oncology 11/25/18 Sabrina Willard NP [address] [place] [address] Nurse Practitioner Medical Oncology 08/17/20 11/26/21 documented as of this encounter
--- OUTSIDE RECORDS SUMMARY | 2024-06-26 02:13 | XMS_ITS | Encounter Summary ---
Author Organization [facility] Address [address] [place] [address] Phone Care Team Providers Care Corporate Technical Recruiter Name Role Phone Julio César Briseno MD Primary Care Provider [phone] Eren Cr MD Unavailable Yohana Bowen MD Unavailable Sabrina Willard NP Unavailable Encounter Details Date Type Department Care Team (Late st Contact Info) Description 11/09/2020 Orders Only [facility] [address] 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 Gender Identity Not on file Sexual Orientation Straight 02/19/2021 9: 29 AM CDT Occupation Industry Job Start Date Job End Date retired Not on file Not on file Not on file documented as of this encounter Plan of Treatment Not on file documented as of this encounter Visit Diagnoses Not on filedocumented in this encounter Care Teams Corporate Technical Recruiter Relationship Specialty Start Date End Date Julio César Briseno MD PCP - General 10/01/16 Eren Cr MD Referring Physician Medical Oncology 11/25/18 Yohana Bowen MD Radiation Oncologist Radiation Oncology 11/25/18 Sabrina Willard NP [address] [place] [address] Nurse Practitioner Medical Oncology 08/17/20 11/26/21 documented as of this encounter
--- OUTSIDE RECORDS SUMMARY | 2024-06-26 02:13 | XMS_ITS | Encounter Summary ---
Author Organization [facility] Address [address] [place] [address] Phone Care Team Providers Care Snag Grinder Name Role Phone Julio César Briseno MD Primary Care Provider [phone] Eren Cr MD Unavailable [phone] Yohana Bowen MD Unavailable Sabrina Willard NP Unavailable [phone] Reason for Referral * Consultation (Routine) - Closed Specialty Diagnoses / Procedures Referred By Contellen t Referred To Contact Physical Therapy Diagnoses Closed extra-articular fracture of distal end of right radius, initial encounter Lu Garcia MD Phone: tel: [facility] [address] [place] [address] Phone: tel: fax: Referral ID Status Reason Start Date Expiration Date V isits Requested Visits Authorized [id number] Closed Specialty Services Required 11/30/2020 12/30/2021 12 12 Question Answer PTRFR PT Evaluate and Treat Therapy options discussed with patient? Yes Location provided for therapy services is: Patient requested/Patient preferred Please select the performing region: External Order [[id number]] To loc/pos [facility] [[id number]] Comments Please see patient twice a week [...] More Views Lu Garcia MD Phone: tel: [facility] Referral ID Status Reason Start Date Expiration Date Visits Re quested Visits Authorized [id number] Closed 11/30/2020 12/30/2021 1 1 Reason for Visit * Reason Comments Pre-op Visit Encounter Details Date Type Department Care Team (Late st Contact Info) Description 11/30/2020 1:45 PM CDT Office Visit [facility] Orthopaedic Surgery [address] [facility] 6th [place] [address] [place] [address] Lu Garcia MD [address] [place] [address] Closed extra-articular fracture of distal end of [...] on file Legal Sex Female 2:41 PM 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
--- OUTSIDE RECORDS SUMMARY | 2024-06-26 02:13 | XMS_ITS | Encounter Summary ---
Author Organization [facility] Address [address] [place] [address] Phone Care Team Providers Care Garage Door Installer Name Role Phone Julio César Briseno MD Primary Care Provider [phone] Eren Cr MD Unavailable [phone] Yohana Bowen MD Unavailable Sabrina Willard NP Unavailable Encounter Details Date Type Department Care Team (Late st Contact Info) Description 12/28/2020 Orders Only [facility] Oncology [address] [facility] Advanced Medicine 7th [place] [address] [place] [address] Eren Cr MD [address] [facility] [address] [place] [address] Neuro-endocrine carcinoma (CMS/HCC) (Primary Dx) Social History Tobacco Use Types Packs/Day Years Used Date Smoking Tobacco: Never Smokeless Tobacco: Never Alcohol Use Standard Drinks/Week Comments Yes 1 (1 standard drink = 0.6 oz pur e alcohol) Comments No Sex and Gender Information Value Date Recorded Sex Assigned at Not on file Legal Sex Female 2:41 PM 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 Current interpretive data was last revised on 19. Hep B core IgM Nonreactive Nonreactive [facility] Comment: Interpretive Data If HepB Core IgM Ab is reported as Equivocal, a new sample should be drawn in two weeks for testing. Current interpretive data was last revised on 19. Hep C Ab Nonreactive Nonreactive [facility] Comment:Antibodies to HCV no t detected. Does NOT exclude the possibility of recent exposure to HCV. HepBsAg Nonreactive Nonreactive [facility] Blood specimen (specimen) 01/02/2021 2:05 PM CDT 01/02/2021 2:37 PM CDT Eren Cr MD LAB MICROBIOLOGY - GENERAL OR DERABLES Edited Result - Final [facility] Department [place] [address] documented in this encounter Visit Diagnoses Diagnosis Neuro-endocrine carcinoma (HCC)- Primary Other malignant neoplasm of unspecified site documented in this encounter Care Teams Garage Door Installer Relationship Specialty Start Date End Date Julio César Briseno MD PCP - General 10/01/16 Eren Cr MD Referring Physician Medical Oncology 11/25/18 Yohana Bowen MD Radiation Oncologist Radiation Oncology 11/25/18 Sabrina Willard BILLING 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 [address] [place] [address] Nurse Practitioner Medical Oncology 08/17/20 11/26/21 documented as of this encounter
--- OUTSIDE RECORDS SUMMARY | 2024-06-26 02:14 | XMS_ITS | Encounter Summary ---
Author Organization 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) Procedures OK OCTREOTIDE INJECTION, DEPOT Octreotide 28 Day Cycles - Carcinoid Eren Cr MD [address] [facility] [address] [place] [address] Phone: tel: fax: [facility] [address] [address] Phone: tel: fax: Referral ID Status Reason Start Date Expiration Date V isits Requested Visits Authorized [id number] Authorized 11/28/2017 02/05/2025 1 150 Encounter Details Date Type Department Care Team (Late st Contact Info) Description 09/12/2020 3:45 PM MICA WASHER GLUER Lab [facility] Oncology [address] [place] [address] 7th [place] [address] [place] [address] Neuroendocrine carcinoma (CMS/HCC); Malignant neoplasm metastatic to liver (CMS/HCC) Social History Tobacco Use Types Packs/Day Years Used Date Smoking Tobacco: Never Smokeless Tobacco: Never Alcohol Use Standard Drinks/Week Comments Yes 1 (1 standard drink = 0.6 oz pur e alcohol) Comments No Sex and Gender Information Value Date Recorded Sex Assigned at Not on file Legal Sex Female 2:41 PM MICA WASHER GLUER Gender Identity Not on file Sexual Orientation Straight 02/19/2021 9: 29 AM CDT Occupation Industry Job Start Date Job End Date retired Not on file Not on file Not on file documented as of this encounter Plan of Treatment Not on file documented as of this encounter Procedures Procedure Name Priority Date/Time Associated Diagnosis Comments DIFFERENTIAL AUTO Routine 09/12/2020 4:0 6 PM MICA WASHER GLUER Neuroendocrine carcinoma (CMS/HCC) Malignant neoplasm metastatic to liver (CMS/HCC) CHROMOGRANIN A Routine 09/12/2020 4:06 PM MICA WASHER GLUER Neuroendocrine carcinoma (CMS/HCC) Malignant neoplasm metastatic to liver (CMS/HCC) CBC WITH AUTO DIFFERENTIAL Routine 09/12/2020 4:06 PM MICA WASHER GLUER Neuroendocrine carcinoma (CMS/HCC) Malignant neoplasm metastatic to liver (CMS/HCC) COMPREHENSIVE METABOLIC PANEL STAT 09/12/2020 4:06 PM MICA WASHER GLUER Neuroendocrine carcinoma (CMS/HCC) Malignant neoplasm metastatic to liver (CMS/HCC) documented in this encounter Results * (ABNORMAL) Differential, auto (09/12/2020 4:06 PM MICA WASHER GLUER) Neutrophil abs 3.6 1.8 - 6.6 K/cumm JASON BLACK Comment:Testing performed by : [facility], [address] [place] [phone] Lymphocyte abs 0.5(L) 1.2 - 3.3 K/cumm JASON BLACK Comment:Testing performed by : [facility], [address] [place] [phone] Monocyte abs 0.6 0.2 - 1.2 K/cumm CERNER BJ Comment:Testing performed by : [facility], [address] [place] [phone] Eosinophil abs 0.1 0.0 - 0.5 K/cumm CERNER BJ Comment:Testing performed by : [facility], [address] [place] [phone] Basophil abs 0.0 0.0 - 0.2 K/cumm CERNER BJ Comment:Testing performed by : [facility], [address] [place] [address] Neutrophil pct 75.0 % CERNER BJ Comment: Interpretive Data Percent cell count reference ranges are not reported, since discordance with absolute values may lead to misinterpretation of CBC data. Current Interpretive Data was last revised on 2017. Testing performed by: [facility], [address] [place] [phone] Lymphocyte pct 9.5 % CERNER BJ Comment: Interpretive Data Percent cell count reference ranges are not reported, since discordance with absolute values may lead to misinterpretation of CBC data. Current Interpretive Data was last revised on 2017. Testing performed by: [facility], [address] [place] [phone] Monocyte pct 12.7 % CERNER BJ Comment:Testing performed by : [facility], [address] [place] [phone] Eosinophil pct 2.2 % CERNER BJ Comment:Testing performed by : [facility], [address] [place] [phone] Basophil pct 0.6 % CERNER BJ Comment:Testing performed by : [facility], [address] [place] [phone] Blood specimen (specimen) 09/12/2020 4:06 PM MICA WASHER GLUER 09/12/2020 4:09 PM MICA WASHER GLUER us Eren Cr MD LAB BLOOD ORDERABLES Final Re sult AJSON BLACK [facility] Department [place] [address] * (ABNORMAL) Comprehensive metabolic panel (09/12/2020 4:06 PM MICA WASHER GLUER) Sodium 141 135 - 145 mmol/L CERNER [facility] Comment:Testing performed by : [facility], [address] [place] [phone] Potassium, pl 4.2 3.3 - 4.9 mmol/L CERNER BJ Comment:Testing performed by : [facility], [address] [place] [phone] Chloride 104 97 - 110 mmol/L CERNER BJ Comment:Testing performed by : [facility], [address] [place] [phone] CO2 32 22 - 32 mmol/L CERNER BJ Comment:Testing performed by : [facility], [address] [place] [phone] Anion gap 5 2 - 15 mmol/L CERNER BJ Comment:Testing performed by : [facility], [address] [place] [phone] BUN 15 8 - 25 mg/dL CERNER BJ Comment:Testing performed by : [facility], [address] [place] [phone] Creatinine 0.88 0.60 - 1.10 mg/dL CERNER BJ Comment:Testing performed by : [facility], [address] [place] [phone] Glucose 98 70 - 199 mg/dL CERNER [facility] Comment: Interpretive Data Fasting glucose [...] was last revised 2017. Testing performed by: [facility], [address] [place] [phone] Calcium 10.8(H) 8.5 - 10.3 mg/dL [facility]ERMINNIE [facility] Comment:Testing performed by : [facility], [address] [place] [phone] Bilirubin, total 0.3 0.1 - 1.2 mg/dL [facility]ERMINNIE [facility] Comment:Testing performed by : [facility], [address] [place] [phone] Protein, pl 6.8 6.5 - 8.5 g/dL [facility]ERMINNIE [facility] Comment:Testing performed by : [facility], [address] [place] [phone] Albumin 4.3 3.5 - 5.0 g/dL [facility]NIE [facility] Comment:Testing performed by : [facility], [address] [place] [phone] Alk phos 82 40 - 130 Units/L JASON [facility] Comment:Testing performed by : [facility], [address] [place] [phone] ALT 16 7 - 45 Units/L JASON [facility] Comment:Testing performed by : [facility], [address] [place] [phone] AST 20 10 - 45 Units/L JASON [facility] Comment:Testing performed by : [facility], [address] [place] [phone] Blood specimen (specimen) 09/12/2020 4:06 PM MICA WASHER GLUER 09/12/2020 4:09 PM MICA WASHER GLUER us Eren Cr MD LAB BLOOD ORDERABLES Final Re sult [facility] Department [place] [address] * (ABNORMAL) CBC with auto differential (09/12/2020 4:06 PM MICA WASHER GLUER) WBC 4.8 3.8 - 9.8 K/cumm JASON [facility] Comment:Testing performed by : [facility], [address] [place] [phone] Hgb 12.7 12.1 - 15.1 g/dL JASON [facility] Comment:Testing performed by : [facility], [address] [place], [place] [phone] Hct 37.8 36.1 - 44.3 % CERMINNIE BJ Comment:Testing performed by : [facility], [address] [place], [place] [phone] Plt 117(L) 140 - 440 K/cumm CERMINNIE BJ Comment:Testing performed by : [place] [phone] MPV 7.3 6.8 - 10.4 fL CERMINNIE BJ Comment:Testing performed by : [place] [address] RBC 4.06 3.90 - 5.00 M/cumm CERMINNIE BJ Comment:Testing performed by : [place] [address] MCV 93.2 80.0 - 97.6 fL [facility]ERMINNIE [facility] Comment:Testing performed by : [place] [phone] MCH 31.3 26.7 - 33.7 pg [facility]NIE [facility] Comment:Testing performed by : [facility], [address] [place], [place] [phone] MCHC 33.6 32.7 - 35.5 g/dL CERMINNIE BJ Comment:Testing performed by : [place] [phone] RDW CV 13.3 11.8 - 14.6 % CERMINNIE BJ Comment:Testing performed by : [place] [id number] NRBC abs 0.00 0.00 - 0.01 K/cumm CERMINNIE BJ Comment:Testing performed by : [place] [id number] Blood specimen (specimen) 09/12/2020 4:06 PM MICA WASHER GLUER 09/12/2020 4:09 PM MICA WASHER GLUER us Eren Cr MD LAB BLOOD ORDERABLES Final Re sult JASON BLACK [facility] [place] [address] * (ABNORMAL) Chromogranin A (09/12/2020 4:06 PM MICA WASHER GLUER) Chromogranin A 407(H) <93 ng/mL JASON SOFIA Comment: Impaired renal or hepatic function or treatment with proton pump inhibitors may result in artifactual elevations of Chromogranin A. ADDITIONAL INFORMATION This test was developed and its performance characteristics determined by [facility] in a manner consistent with CLIA requirements. This test has not been cleared or approved by the U.S. Food and Drug Administration. The testing method is a homogeneous time-resolved immunofluorescent assay manufactured by [employer] and performed on the App[employer].SLor Compact Plus. ? Values obtained with different assay methods or kits may be different and cannot be used interchangeably. ? Test results cannot be interpreted as absolute evidence for the presence or absence of malignant disease. Test Performed by: [facility] [address] [place] [address] Electrical Maintenance Worker: Immanuel Novak M.D. Ph.D.; CLIA# [id number] Blood specimen (specimen) 09/12/2020 4:06 PM MICA WASHER GLUER 09/12/2020 5:02 PM MICA WASHER GLUER Eren Cr MD LAB BLOOD ORDERABLES Final Re sult JASON LEAVITT [facility] [place] [address] documented in this encounter Visit Diagnoses Diagnosis Neuroendocrine carcinoma (HCC) Other malignant neoplasm of unspecified site Malignant neoplasm metastatic to liver (HCC) documented in this encounter Orders Appointment Requests Count Last Ordered Date Fi rst Ordered Date ONCBCN LAB APPOINTMENT 1 09/12/2020 documented in this encounter Care Teams Pairer Odds Relationship Specialty Start Date End Date Julio César Briseno MD PCP - General 10/01/16 Eren Cr MD Referring Physician Medical Oncology 11/25/18 Yohana Bowen MD Radiation Oncologist Radiation Oncology 11/25/18 Sabrina Willard NP [address] [place] [address] Nurse Practitioner Medical Oncology 08/17/20 11/26/21 documented as of this encounter
--- OUTSIDE RECORDS SUMMARY | 2024-06-26 02:14 | XMS_ITS | Encounter Summary ---
Author Organization [facility] Address [address] [place] [address] Phone Care Team Providers Care Cheese Cutter Name Role Phone Julio César Briseno MD Primary Care Provider [phone] Eren Cr MD Unavailable [phone] Yohana Bowen MD Unavailable Encounter Details Date Type Department Care Team (Late st Contact Info) Description 08/16/2020 Orders Only [facility] Oncology [address] [facility] 7th [place] [address] [place] [address] Eren Cr MD [address] [facility] [address] [place] [address] Social History Tobacco Use Types Packs/Day Years Used Date Smoking Tobacco: Never Smokeless Tobacco: Never Alcohol Use Standard Drinks/Week Comments Yes 1 (1 standard drink = 0.6 oz pur e alcohol) Comments No Sex and Gender Information Value Date Recorded Sex Assigned at Not on file Legal Sex Female 2:41 PM CELLOPHANE TESTER Gender Identity Not on file Sexual Orientation Straight 02/19/2021 9: 29 AM CDT Occupation Industry Job Start Date Job End Date retired Not on file Not on file Not on file documented as of this encounter Plan of Treatment Not on file documented as of this encounter Visit Diagnoses Not on filedocumented in this encounter Care Teams Cheese Cutter Relationship Specialty Start Date End Date Julio César Birseno MD PCP - General 10/01/16 Eren Cr MD Referring Physician Medical Oncology 11/25/18 Yohana Bowen MD Radiation Oncologist Radiation Oncology 11/25/18 documented as of this encounter
--- OUTSIDE RECORDS SUMMARY | 2024-06-26 02:14 | XMS_ITS | Encounter Summary ---
Author Organization [facility] Address [address] [place] [address] Phone Care Team Providers Care Carpenter Repairer Name Role Phone Julio César Briseno MD Primary Care Provider [phone] Eren Cr MD Unavailable [phone] Yohana Bwoen MD Unavailable Reason for Visit * Reason Comments Ostomy Care Encounter Details Date Type Department Care Team (Late st Contact Info) Description 05/24/2020 10:00 AM BONE CHAR KILN TENDER Office Visit [facility] Surgery [address] [place] [address] Greyson Reeves MD [address] [facility] [id number] [place] 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) (Primary Dx); Colostomy complication, unspecified (CMS/HCC) Social History Tobacco Use Types Packs/Day Years Used Date Smoking Tobacco: Never Smokeless Tobacco: Never Alcohol Use Standard Drinks/Week Comments Yes 1 (1 standard drink = 0.6 oz pur e alcohol) Comments No Sex and Gender Information Value Date Recorded Sex Assigned at Not on file Legal Sex Female 2:41 PM BONE CHAR KILN TENDER Gender Identity Not on file Sexual Orientation Straight 02/19/2021 9: 29 AM CDT Occupation Industry Job Start Date Job End Date retired Not on file Not on file Not on file documented as of this encounter Last Filed Vital Signs Vital Sign Reading Time Taken Comments Blood Pressure 173/75 05/24/2020 8:58 AM BONE CHAR KILN TENDER Pulse 75 05/24/2020 8:58 AM BONE CHAR KILN TENDER Temperature 36.6 ??C (97.8 ??F) 05/24/2020 8 :58 AM BONE CHAR KILN TENDER Respiratory Rate 12 05/24/2020 8:58 AM BONE CHAR KILN TENDER Oxygen Saturation 97% 05/24/2020 8:5 8 AM BONE CHAR KILN TENDER Inhaled Oxygen Concentration - - Weight 84.1 kg (185 lb 6.4 oz) 05/24/2020 8:58 AM BONE CHAR KILN TENDER with shoes on Height - - Body [...] > 5 YEARS N/A 08/04/2019 ? ? [place] REMOVAL OF TONSILS,<12 Y/O Tonsillectomy - (Added by TW Conv) ??? [place] TOTAL ABDOM HYSTERECTOMY Hysterectomy - (Added by TW Conv) HOME MEDICATIONS : ascorbic acid, vitamin C, 500 mg capsule cholecalciferol (VITAMIN D-3) 2,000 unit capsule cholestyramine (QUESTRAN) 4 gram packet clotrimazole-betamethasone (LOTRISONE) cream coenzyme D28-ftbwuhl E (CO Q-10, WITH VIT E,) 100-5 [...] operating room for fulguration of the lesions. 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
--- OUTSIDE RECORDS SUMMARY | 2024-06-26 02:14 | XMS_ITS | Encounter Summary ---
Author Organization [facility] Address [address] [place] [address] Phone Care Team Providers Care Business Taxes Specialist Name Role Phone Julio César Briseno MD Primary Care Provider Eren Cr MD Unavailable [phone] Yohana Bowen MD Unavailable Encounter Details Date Type Department Care Team (Late st Contact Info) Description 05/23/2020 Orders Only [facility] On[facility] [address] [place] [address] Eren Cr MD [address] [place], [place] [id number] 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); Neuroendocrine tumor Social History Tobacco Use Types Packs/Day Years Used Date Smoking Tobacco: Never Smokeless Tobacco: Never Alcohol Use Standard Drinks/Week Comments Yes 1 (1 standard drink = 0.6 oz pur e alcohol) Comments No Sex and Gender Information Value Date Recorded Sex Assigned at Not on file Legal Sex Female 2:41 PM COMPTOMETER OPERATOR Gender Identity Not on file Sexual [...] 05/24/2020 documented in this encounter Care Teams Business Taxes Specialist Relationship Specialty Start Date End Date Julio César Briseno MD PCP - General 10/01/16 Eren Cr MD Referring Physician Medical Oncology 11/25/18 Yohana Bowen MD Radiation Oncologist Radiation Oncology 11/25/18 documented as of this encounter
--- OUTSIDE RECORDS SUMMARY | 2024-06-26 02:14 | XMS_ITS | Encounter Summary ---
Author Organization [facility] Address [address] [place] [address] Phone Care Team Providers Care Tower Truck Driver Name Role Phone Julio César Briseno MD Primary Care Provider Eren Cr MD Unavailable [phone] Yohana Bowen MD Unavailable Encounter Details Date Type Department Care Team (Late st Contact Info) Description 05/10/2020 Orders Only [facility] Oncology [address] [place] [address] Eren Cr MD [address] [place], [place] [id number] Malignant neoplasm metastatic to liver (CMS/HCC) (Primary [...] on file Legal Sex Female 2:41 PM FULLING MILL OPERATOR Gender Identity Not on file Sexual Orientation Straight 02/19/2021 9: 29 AM CDT Occupation Industry Job Start Date Job End Date retired Not on file Not on file Not on file documented as of this encounter Plan of Treatment Not on file documented as of this encounter Results * Calcium level (05/24/2020 8:08 AM FULLING MILL OPERATOR) Calcium 10.3 8.5 - 10.3 mg/dL [facility] Blood specimen (specimen) 05/24/2020 8:08 AM FULLING MILL OPERATOR 05/24/2020 8:12 AM FULLING MILL OPERATOR Eren Cr MD LAB BLOOD ORDERABLES Final Re sult Performing Organization Address [facility] Co de Phone Number [facility] [place] [address] * Calcium level (05/16/2020 8:08 AM FULLING MILL OPERATOR) Calcium 10.3 8.5 - 10.3 mg/dL [facility] Comment:Testing performed by : [facility], [address] [place] [phone] Blood specimen (specimen) 05/16/2020 8:08 AM FULLING MILL OPERATOR 05/16/2020 8:09 AM FULLING MILL OPERATOR us Eren Cr MD LAB BLOOD ORDERABLES Final Re sult Performing Organization Address [facility] de Phone Number [facility] [place] [address] documented in this encounter Visit Diagnoses Diagnosis 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
--- OUTSIDE RECORDS SUMMARY | 2024-06-26 02:14 | XMS_ITS | Encounter Summary ---
Author Organization [facility] Address [address] [place] [address] Phone Care Team Providers Care Dot Etcher Apprentice Name Role Phone Julio César Briseno MD Primary Care Provider Eren Cr MD Unavailable [phone] Yohana Bowen MD Unavailable Reason for Visit * Reason Onset Date Comments Confirmed COVID questions 06/22/2020 Encounter Details Date Type Department Care Team (Late st Contact Info) Description 06/22/2020 Telephone [facility] Surgery [address] [facility] [address]th [place] [address] [place] [address] Sola Dubois BClarkAClark Confirmed COVID questions Social History Tobacco Use Types Packs/Day Years Used Date Smoking Tobacco: Never Smokeless Tobacco: Never Alcohol Use Standard Drinks/Week Comments Yes 1 (1 standard drink = 0.6 oz pur e alcohol) Comments No Sex and Gender Information Value Date Recorded Sex Assigned at Not on file Legal Sex Female 2:41 PM ASSISTANT PROFESSOR OF FORESTRY Gender Identity Not on file Sexual Orientation Straight 02/19/2021 9: 29 AM CDT Occupation Industry Job Start Date Job End Date retired Not on file Not on file Not on file documented as of this encounter Miscellaneous Notes * Telephone Encounter - Sola Dubois B.A. - 06/22/2020 2:07 PM ASSISTANT PROFESSOR OF FORESTRY Confirmed COVID questions STANT PROFESSOR OF FORESTRY documented in this encounter Plan of Treatment Not on file documented as of this encounter Visit Diagnoses Not on filedocumented in this encounter Care Teams Dot Etcher Apprentice Relationship Specialty Start Date End Date Julio César Briseno MD PCP - General 10/01/16 Eren Cr MD Referring Physician Medical Oncology 11/25/18 Yohana Bowen MD Radiation Oncologist Radiation Oncology 11/25/18 documented as of this encounter
--- OUTSIDE RECORDS SUMMARY | 2024-06-26 02:14 | XMS_ITS | Encounter Summary ---
Author Organization [facility] Address [address] [place] [address] Phone Care Team Providers Care Equipment Engineering Technician Name Role Phone Julio César Briseno MD Primary Care Provider Eren rC MD Unavailable Yohana Bowen MD Unavailable Sabrina Willard NP Unavailable Encounter Details Date Type Department Care Team (Late st Contact Info) Description 09/01/2020 Orders Only [facility] Oncology [address] [facility] 7th [place] [address] [place] [address] Eren Cr MD [address] [facility] [address] [place] [address] Social History Tobacco Use Types Packs/Day Years Used Date Smoking Tobacco: Never Smokeless Tobacco: Never Alcohol Use Standard Drinks/Week Comments Yes 1 (1 standard drink = 0.6 oz pur e alcohol) Comments No Sex and Gender Information Value Date Recorded Sex Assigned at Not on file Legal Sex Female 2:41 PM PRODUCT HANDLER Gender Identity Not on file Sexual [...] documented as of this encounter Care Teams Equipment Engineering Technician Relationship Specialty Start Date End Date Julio César Briseno MD PCP - General 10/01/16 Eren Cr MD Referring Physician Medical Oncology 11/25/18 Yohana Bowen MD Radiation Oncologist Radiation Oncology 11/25/18 Sabrina Willard NP [address] [place] [address] Nurse Practitioner Medical Oncology 08/17/20 11/26/21 documented as of this encounter
--- OUTSIDE RECORDS SUMMARY | 2024-06-26 02:14 | XMS_ITS | Encounter Summary ---
Author Organization [facility] Address [address] [place] [address] Phone Care Team Providers Care Licensed Practical Nurse Name Role Phone Julio César Briseno MD Primary Care Provider [phone] Eren Cr MD Unavailable [phone] Yohana Bowen MD Unavailable Reason for Visit * Reason Onset Date Comments COVID19 exposure 05/20/2020 Encounter Details Date Type Department Care Team (Late st Contact Info) Description 05/20/2020 Telephone [facility] Oncology [address] [facility] 7th [place] [address] [place] [address] Eren Cr MD [address] [facility] [address] [place] [address] COVID19 exposure Social History Tobacco Use Types Packs/Day Years Used Date Smoking Tobacco: Never Smokeless Tobacco: Never Alcohol Use Standard Drinks/Week Comments Yes 1 (1 standard drink = 0.6 oz pur e alcohol) Comments No Sex and Gender Information Value Date Recorded Sex Assigned at Not on file Legal Sex Female 2:41 PM HYDROGEN BRAZE FURNACE OPERATOR Gender Identity Not on file Sexual [...] with patient on Saturday for test results. OGEN BRAZE FURNACE OPERATOR documented in this encounter Plan of Treatment Not on file documented as of this encounter Visit Diagnoses Not on filedocumented in this encounter Care Teams Licensed Practical Nurse Relationship Specialty Start Date End Date Julio César Briseno MD PCP - General 10/01/16 Eren Cr MD Referring Physician Medical Oncology 11/25/18 Yohana Bowen MD Radiation Oncologist Radiation Oncology 11/25/18 documented as of this encounter
--- OUTSIDE RECORDS SUMMARY | 2024-06-26 02:14 | XMS_ITS | Encounter Summary ---
Author Organization [facility] Address [address] [place] [address] Phone Care Team Providers Care Guest Services Lead Name Role Phone Julio César Briseno MD Primary Care Provider Eren Cr MD Unavailable Yohana Bowen MD Unavailable Sabrina Willard NP Unavailable [phone] Encounter Details Date Type Department Care Team (Late st Contact Info) Description 08/17/2020 Orders Only [facility] Oncology [address] [facility] Advanced Medicine 7th [place] [address] [place] [address] Eren Cr MD [address] [facility] [address] [place] [address] Social History Tobacco Use Types Packs/Day Years [...] on filedocumented in this encounter Care Teams Guest Services Lead Relationship Specialty Start Date End Date Julio César Briseno MD PCP - General 10/01/16 Eren Cr MD Referring Physician Medical Oncology 11/25/18 Yohana Bowen MD Radiation Oncologist Radiation Oncology 11/25/18 Sabrina Willard NP [address] [place] [address] Nurse Practitioner Medical Oncology 08/17/20 11/26/21 documented as of this encounter
--- OUTSIDE RECORDS SUMMARY | 2024-06-26 02:14 | XMS_ITS | Encounter Summary ---
Author Organization [facility] Address [address] [place] [address] Phone Care Team Providers Care Attending Pathologist Name Role Phone Julio César Briseno MD Primary Care Provider [phone] Eren Cr MD Unavailable [phone] Yohana Bowen MD Unavailable Encounter Details Date Type Department Care Team (Late st Contact Info) Description 05/16/[address] [facility] Oncology [address] [facility] 7th [place] [address] [place] [address] Bridgett Reyes RN Social History Tobacco Use Types Packs/Day Years Used Date Smoking Tobacco: Never Smokeless Tobacco: Never Alcohol Use Standard Drinks/Week Comments Yes 1 (1 standard drink = 0.6 oz pur e alcohol) Comments No Sex and Gender Information Value Date Recorded Sex Assigned at Not on file Legal Sex Female 2:41 PM TRANSITION SOCIAL WORKER Gender Identity Not on file Sexual Orientation Straight 02/19/2021 9: 29 AM CDT Occupation Industry Job Start Date Job End Date retired Not on file Not on file Not on file documented as of this encounter Miscellaneous Notes * Telephone Encounter - Bridgett Reyes RN - 05/16/2020 12:30 PM TRANSITION SOCIAL WORKER Called patient to inform her of lab results. Calcium level on 05/16/20 is 10.3 (within normal limits). Explained we are keeping an eye on her calcium because the Xgeva injections can affect calcium levels. Patient stated she is feeling well and has no questions or concerns at this time. Instructed patient to call Dr. Cr's office with any future questions or concerns. SITION SOCIAL WORKER documented in this encounter Plan of Treatment Not on file documented as of this encounter Visit Diagnoses Not on filedocumented in this encounter Care Teams Attending Pathologist Relationship Specialty Start Date End Date Julio César Briseno MD PCP - General 10/01/16 Eren Cr MD Referring Physician Medical Oncology 11/25/18 Yohana Bowen MD Radiation Oncologist Radiation Oncology 11/25/18 documented as of this encounter
--- OUTSIDE RECORDS SUMMARY | 2024-06-26 02:14 | XMS_ITS | Encounter Summary ---
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) Procedures [place] OCTREOTIDE INJECTION, DEPOT Octreotide 28 Day Cycles - Carcinoid Eren Cr MD [address] [facility] [address] [place] [address] Phone: tel: fax: [facility] [address] [address] Phone: tel: fax: Referral ID Status Reason Start Date Expiration Date V isits Requested Visits Authorized [id number] Authorized 11/28/2017 02/05/2025 1 150 Encounter Details Date Type Department Care Team (Late st Contact Info) Description 09/12/2020 4:15 PM PIT TANNER Infusion [facility] Oncology [address] [facility] 7th [place] [address] Neuroendocrine carcinoma (CMS/HCC) (Primary Dx); Malignant neoplasm [...] on file Legal Sex Female 2:41 PM PIT TANNER Gender Identity Not on file Sexual Orientation Straight 02/19/2021 9: 29 AM CDT Occupation Industry Job Start Date Job End Date retired Not on file Not on file Not on file documented as of this encounter Last Filed Vital Signs Vital Sign Reading Time Taken Comments Blood Pressure 158/72 09/12/2020 4:14 PM PIT TANNER Pulse 112 09/12/2020 4:14 PM PIT TANNER Temperature 36.3 ??C (97.3 ??F) 09/12/2020 4:14 PM CS T Respiratory Rate 18 09/12/2020 4:14 PM PIT TANNER Oxygen Saturation 96% 09/12/2020 4:14 PM PIT TANNER Inhaled Oxygen Concentration - - Weight 85.1 kg (187 lb 9.6 oz) 09/12/2020 4:14 P M PIT TANNER Height - - Body Mass Index 33.23 06/23/2020 2:55 PM PIT TANNER documented in this encounter Nursing Notes * Ashley Jennings RN - 09/12/2020 4:15 PM CST Patient tolerated both injections well. Patient has appointments and left ambulatory with appointments. TANNER documented in this encounter Plan of Treatment [...] metastasis,Neuro-endocrine carcinoma (HCC) Given 09/12/2020 4:49 PM PIT TANNER 120 mg Right Lower Abdomen octreotide LAR (SandoSTATIN LAR) extended release intramuscular injection 30 mg 30 mg, intramuscular, Once, On 09/12/20 at 1715, For 1 dose, Refrigerate. For IM intragluteal administration only- alternate gluteal sites. Shake.Indications:Malignan t neoplasm metastatic to liver (HCC),Neuroendocrine carcinoma (HCC) Given 09/12/2020 4:49 PM PIT TANNER 30 mg Left Dorsogluteal/Butto ck documented in this encounter Orders Nursing Count Last Ordered Date First Orde red Date ONCBCN NURSING COMMUNICATION [id number] 1 09/12 ONCBCN NURSING COMMUNICATION [id number] 1 0 09/12/2020 PHYSICIAN COMMUNICATION ORDER 1 09/12/2020 Appointment Requests Count Last Ordered Date Fi rst Ordered Date ONCBCN INJECTION APPOINTMENT REQUEST 1 02/2021 documented in this encounter Care Teams Wood Dowel Machine Operator Relationship Specialty Start Date End Date Julio César Briseno MD PCP - General 10/01/16 Eren Cr MD Referring Physician Medical Oncology 11/25/18 Yohana Bowen MD Radiation Oncologist Radiation Oncology 11/25/18 Sabrina Willard NP [address] [place] [address] Nurse Practitioner Medical Oncology 08/17/20 11/26/21 documented as of this encounter
--- OUTSIDE RECORDS SUMMARY | 2024-06-26 02:14 | XMS_ITS | Encounter Summary ---
Author Organization [facility] Address [address] [place] [address] Care Team Providers Care Manager Pet Name Role Phone Julio César Briseno MD Primary Care Provider [phone] Eren Cr MD Unavailable [phone] Yohana Bowen MD Unavailable Reason for Visit * Reason Comments Follow-up Telehealth Encounter Details Date Type Department Care Team (Late st Contact Info) Description 08/03/2020 10:30 AM MACHINE BURRER Telemedicine [facility] Radiation Oncology [address] [place] [address] [place] [address] Yohana Bowen MD [facility] [address] [place], [place] [id number] Malignant neoplasm metastatic to liver (CMS/HCC); Neuro-endocrine [...] file Legal Sex Female 2:41 PM MACHINE BURRER Gender Identity Not on file Sexual Orientation [...] capsule ??? clotrimazole-betamethasone (LOTRISONE) cream ??? coenzyme M95-lcwnshd E (CO Q-10, WITH VIT E,) 100-5 [...] patient was located at home in the [facility]. I was present for the entire service [...] or video visit during the COVID- public [facility] emergency to them. After being given an opportunity to ask questions about and discuss this type of visit, they verbally consented to proceeding with the telephone/video visit and understand that this service replaces an office visit. Yohana Bowen MD Chief, GI Service Department of Radiation Oncology INE BURRER 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) Neuro-endocrine carcinoma (HCC) Other malignant neoplasm of unspecified site Neuroendocrine carcinoma (HCC) Other malignant neoplasm of unspecified site documented in this encounter Care Teams Manager Pet Relationship Specialty Start Date End Date Julio César Briseno MD PCP - General 10/01/16 Eren Cr MD Referring Physician Medical Oncology 11/25/18 Yohana Bowen MD Radiation Oncologist Radiation Oncology 11/25/18 documented as of this encounter
--- OUTSIDE RECORDS SUMMARY | 2024-06-26 02:14 | XMS_ITS | Encounter Summary ---
Author Organization [facility] Address [address] [place] [address] Phone Care Team Providers Care Amortization Schedule Clerk Name Role Phone Julio César Briseno MD Primary Care Provider [phone] Eren Cr MD Unavailable [phone] Yohana Bowen MD Unavailable Encounter Details Date Type Department Care Team (Late st Contact Info) Description 06/06/2020 Orders Only [facility] Oncology [address] [facility] Medicine 7th [place] [address] [place] [address] Sabrina Willard, PASTE MIXER [address] [place], [place] [id number] Social History Tobacco Use Types Packs/Day Years Used Date Smoking Tobacco: Never Smokeless Tobacco: Never Alcohol Use Standard Drinks/Week Comments Yes 1 (1 standard drink = 0.6 oz pur e alcohol) Comments No Sex and Gender Information Value Date Recorded Sex Assigned at Not on file Legal Sex Female 2:41 PM FRONTLOAD DRIVER Gender Identity Not on file Sexual Orientation Straight 02/19/2021 9: 29 AM CDT Occupation Industry Job Start Date Job End Date retired Not on file Not on file Not on file documented as of this encounter Plan of Treatment Not on file documented as of this encounter Visit Diagnoses Not on filedocumented in this encounter Care Teams Amortization Schedule Clerk Relationship Specialty Start Date End Date Julio César Briseno MD PCP - General 10/01/16 Eren Cr MD Referring Physician Medical Oncology 11/25/18 Yohana Bowen MD Radiation Oncologist Radiation Oncology 11/25/18 documented as of this encounter
--- OUTSIDE RECORDS SUMMARY | 2024-06-26 02:14 | XMS_ITS | Encounter Summary ---
Author Organization [facility] Address [address] [place] [address] Phone Care Team Providers Care Chief Human Resources Officer Name Role Phone Julio César Briseno MD Primary Care Provider [phone] Eren Cr MD Unavailable Yohana Bowen MD Unavailable Reason for Visit * Episode Based Medications (Routine) - Authorized Specialty Diagnoses / Procedures Referred By Evelyne t Referred To Contact Oncology Diagnoses Neuroendocrine carcinoma (HCC) Malignant neoplasm metastatic to liver (HCC) Procedures IA OCTREOTIDE INJECTION, DEPOT Octreotide 28 Day Cycles - Carcinoid Eren Cr MD [address] [facility] [address] [place] [address] Phone: tel: fax: [facility] [address] [address] Phone: tel: fax: Referral ID Status Reason Start Date Expiration Date V isits Requested Visits Authorized [id number] Authorized 11/28/2017 02/05/2025 1 150 Encounter Details Date Type Department Care Team (Late st Contact Info) Description 07/04/2020 3:30 PM REAR ADMIRAL Lab [facility] Oncology Count includes the [facility] 7th [place] [address] [place] [address] Neuroendocrine carcinoma (CMS/HCC); Malignant neoplasm metastatic to liver (CMS/HCC); Bone metastasis (CMS/HCC) Social History Tobacco Use Types Packs/Day Years Used Date Smoking Tobacco: Never Smokeless Tobacco: Never Alcohol Use Standard Drinks/Week Comments Yes 1 (1 standard drink = 0.6 oz pur e alcohol) Comments No Sex and Gender Information Value Date Recorded Sex Assigned at Not on file Legal Sex Female 2:41 PM REAR ADMIRAL Gender Identity Not on file Sexual Orientation Straight 02/19/2021 9: 29 AM CDT Occupation Industry Job Start Date Job End Date retired Not on file Not on file Not on file documented as of this encounter Plan of Treatment Not on file documented as of this encounter Procedures Procedure Name Priority Date/Time Associated Diagnosis Comments DIFFERENTIAL AUTO Routine 07/04/2020 3:3 0 PM REAR ADMIRAL Neuroendocrine carcinoma (CMS/HCC) Malignant neoplasm metastatic to liver (CMS/HCC) CHROMOGRANIN A Routine 07/04/2020 3:30 PM REAR ADMIRAL Neuroendocrine carcinoma (CMS/HCC) Malignant neoplasm metastatic to liver (CMS/HCC) CBC WITH AUTO DIFFERENTIAL Routine 07/04/2020 3:30 PM REAR ADMIRAL Neuroendocrine carcinoma (CMS/HCC) Malignant neoplasm metastatic to liver (CMS/HCC) PHOSPHORUS STAT 07/04/2020 3:30 PM REAR ADMIRAL Bone metastasis (CMS/HCC) Neuroendocrine carcinoma (CMS/HCC) Malignant neoplasm metastatic to liver (CMS/HCC) COMPREHENSIVE METABOLIC PANEL STAT 07/04/2020 3:30 PM REAR ADMIRAL Neuroendocrine carcinoma (CMS/HCC) Malignant neoplasm metastatic to liver (CMS/HCC) documented in this encounter Results * (ABNORMAL) Differential, auto (07/04/2020 3:30 PM REAR ADMIRAL) Neutrophil abs 3.7 1.8 - 6.6 K/cumm [facility] Comment:Testing performed by : [facility], Count includes the [facility] [phone] Lymphocyte abs 0.5(L) 1.2 - 3.3 K/cumm [facility] Comment:Testing performed by : [facility], [address] [place] [phone] Monocyte abs 0.6 0.2 - 1.2 K/cumm [facility] Comment:Testing performed by : [facility], [address] [place] [phone] Eosinophil abs 0.1 0.0 - 0.5 K/cumm [facility] Comment:Testing performed by : [facility], [address] [place] [phone] Basophil abs 0.0 0.0 - 0.2 K/cumm [facility] Comment:Testing performed by : [facility], [address] [place] [phone] Neutrophil pct 74.3 % [facility] Comment: Interpretive Data Percent cell count reference ranges are not reported, since discordance with absolute values may lead to misinterpretation of CBC data. Current Interpretive Data was last revised on 2017. Testing performed by: [facility], [address] [place] [phone] Lymphocyte pct 10.7 % [facility] Comment: Interpretive Data Percent cell count reference ranges are not reported, since discordance with absolute values may lead to misinterpretation of CBC data. Current Interpretive Data was last revised on 2017. Testing performed by: [facility], [address] [place] [phone] Monocyte pct 12.7 % [facility] Comment:Testing performed by : [facility], [address] [place] [phone] Eosinophil pct 1.8 % [facility] Comment:Testing performed by : [facility], [address] [place] [phone] Basophil pct 0.5 % [facility] Comment:Testing performed by : [address] [phone] Blood specimen (specimen) 07/04/2020 3:30 PM REAR ADMIRAL 07/04/2020 3:34 PM REAR ADMIRAL Eren Cr MD LAB BLOOD ORDERABLES Final Re sult Performing Organization Address [facility] Co de Phone Number [facility] [place] [address] * Phosphorus (07/04/2020 3:30 PM REAR ADMIRAL) [facility] Phosphorus, pl 3.3 2.3 - 4.5 mg/dL [facility] Comment:Testing performed by : [facility], [address] [place] [phone] Blood specimen (specimen) 07/04/2020 3:30 PM REAR ADMIRAL 07/04/2020 3:34 PM REAR ADMIRAL Eren Cr MD LAB BLOOD ORDERABLES Final Re sult Performing Organization Address [facility] de Phone Number [facility] [place] [address] * (ABNORMAL) CBC with auto differential (07/04/2020 3:30 PM REAR ADMIRAL) [facility] WBC 5.0 3.8 - 9.8 K/cumm [facility] Comment:Testing performed by : [facility], [address] [place] [phone] Hgb 13.4 12.1 - 15.1 g/dL [facility] Comment:Testing performed by : [address] [phone] Hct 39.7 36.1 - 44.3 % [facility] Comment:Testing performed by : [facility], [address] [place] [phone] Plt 129(L) 140 - 440 K/cumm [facility] Comment:Testing performed by : [address] [phone] MPV 7.6 6.8 - 10.4 fL [facility] Comment:Testing performed by : [address] [phone] RBC 4.29 3.90 - 5.00 M/cumm [facility] Comment:Testing performed by : [facility], [address] [place] [phone] MCV 92.5 80.0 - 97.6 fL [facility] Comment:Testing performed by : [facility], [address] [place] [phone] MCH 31.3 26.7 - 33.7 pg [facility] Comment:Testing performed by : [facility], [address] [place] [phone] MCHC 33.9 32.7 - 35.5 g/dL [facility] Comment:Testing performed by : [facility], [address] [place] [phone] RDW CV 13.9 11.8 - 14.6 % [facility] Comment:Testing performed by : [facility], [address] [place] [phone] NRBC abs 0.00 0.00 - 0.01 K/cumm [facility] Comment:Testing performed by : [facility], [address] [place] [phone] Blood specimen (specimen) 07/04/2020 3:30 PM REAR ADMIRAL 07/04/2020 3:34 PM REAR ADMIRAL Eren Cr MD LAB BLOOD ORDERABLES Final Re sult [facility] Department [place] [address] * (ABNORMAL) Comprehensive metabolic panel (07/04/2020 3:30 PM REAR ADMIRAL) Sodium 141 135 - 145 mmol/L [facility] Comment:Testing performed by : [facility], [address] [place] [phone] Potassium, pl 4.1 3.3 - 4.9 mmol/L [facility] Comment:Testing performed by : [facility], [address] [place] [phone] Chloride 105 97 - 110 mmol/L [facility] Comment:Testing performed by : [facility], [address] [place] [phone] CO2 30 22 - 32 mmol/L [facility] Comment:Testing performed by : [facility], [address] [place] [phone] Anion gap 6 2 - 15 mmol/L [facility] Comment:Testing performed by : [facility], [address] [place] [phone] BUN 15 8 - 25 mg/dL [facility] Comment:Testing performed by : [facility], [address] [place] [phone] Creatinine 1.11(H) 0.60 - 1.10 mg/dL [facility] Comment:Testing performed by : [facility], [address] [place] [phone] Glucose 125 70 - 199 mg/dL [facility] [...] was last revised 2017. Testing performed by: [facility], [address] [place] [phone] Calcium 11.0(H) 8.5 - 10.3 mg/dL [facility] Comment:Testing performed by : [facility], [address] [place] [phone] Bilirubin, total 0.4 0.1 - 1.2 mg/dL [facility] Comment:Testing performed by : [facility], [address] [place] [phone] Protein, pl 7.3 6.5 - 8.5 g/dL [facility] Comment:Testing performed by : [facility], [address] [place] [phone] Albumin 4.5 3.5 - 5.0 g/dL [facility] Comment:Testing performed by : [facility], [address] [place] [phone] Alk phos 96 40 - 130 Units/L [facility] Comment:Testing performed by : [facility], [address] [facility] [phone] ALT 20 7 - 45 Units/L [facility] Comment:Testing performed by : [facility], [address] [facility] [phone] AST 24 10 - 45 Units/L [facility] Comment:Testing performed by : [facility], Count includes the [facility] [phone] Blood specimen (specimen) 07/04/2020 3:30 PM REAR ADMIRAL 07/04/2020 3:34 PM REAR ADMIRAL Eren Cr MD LAB BLOOD ORDERABLES Final Re sult [facility] Department [place] [address] * (ABNORMAL) Chromogranin A (07/04/2020 3:30 PM REAR ADMIRAL) Chromogranin A 340(H) <93 ng/mL [facility] Comment: Impaired renal or hepatic function [...] by: [facility] [address] [place] [address] Business Management Manager: Immanuel Novak M.D. Ph.D.; CLIA# [id number] Blood specimen (specimen) 07/04/2020 3:30 PM REAR ADMIRAL 07/04/2020 4:17 PM REAR ADMIRAL us Eren Cr MD LAB BLOOD ORDERABLES Final Re sult [facility] Department [place] [address] documented in this encounter Visit Diagnoses Diagnosis Neuroendocrine carcinoma (HCC) Other malignant neoplasm of unspecified site Malignant neoplasm metastatic to liver (HCC) Bone metastasis Secondary malignant neoplasm of bone and bone marrow documented in this encounter Orders Appointment Requests Count Last Ordered Date Fi rst Ordered Date ONCBCN LAB APPOINTMENT 1 07/04/2020 documented in this encounter Care Teams Chief Human Resources Officer Relationship Specialty Start Date End Date Julio César Briseno MD PCP - General 10/01/16 Eren Cr MD Referring Physician Medical Oncology 11/25/18 Yohana Bowen MD Radiation Oncologist Radiation Oncology 11/25/18 documented as of this encounter
--- OUTSIDE RECORDS SUMMARY | 2024-06-26 02:14 | XMS_ITS | Encounter Summary ---
Author Organization [facility] Address [address] [place] [address] Care Team Providers Care Enterprise Manager Name Role Phone Julio César Briseno MD Primary Care Provider [phone] Eren Cr MD Unavailable Yohana Bowen MD Unavailable Encounter Details Date Type Department Care Team (Late st Contact Info) Description 05/30/2020 7:41 AM SIGNALING PROJECT ENGINEER Anesthesia Event [facility] Operating Room [address] [place] [address] Konrad Leonard MD [address] [place] [address] Boy Zavaleta MD [address] [place] [address] Anesthesia Record Procedure Summary Procedure Name Responsible [...] assessment 04/28/19; 06/09/24 (Retired LDA, Removed/Completed by [employer] with LDA Utility); 1213 (Retired LDA, Removed/Completed by [employer] with LDA Utility) 04/13/19 1555 by Adelita Barba RN 06/09/24 1213 by Discharge Provider, Automatic RETIRED Surgical Site 05/06/19; No; Mid-line; Abdomen; distal; 06/09/24 (Retired LDA, Removed/Completed by [employer] with LDA Utility); 1213 (Retired LDA, Removed/Completed by [employer] with LDA Utility) 05/06/19 0000 by Misa [...] on file Legal Sex Female 2:41 PM SIGNALING PROJECT ENGINEER Gender Identity Not on file Sexual Orientation Straight 02/19/2021 9: 29 AM CDT Occupation Industry Job Start Date Job End Date retired Not on file Not on file Not on file documented as of this encounter OR Notes * Anesthesia Postprocedure Evaluation - Konrad Leonard MD - 05/30/2020 11:35 AM CST Patient: La Chung Procedure Summary Date: 05/30/20 Room / Location: [facility] OPERATING ROOM 03 / [facility]PERATING [facility] Anesthesia Start: 740 Anesthesia [...] euvolemic Pt is: normothermic Nausea/Vomiting status: none ALING PROJECT ENGINEER * Anesthesia Preprocedure Evaluation - Konrad Leonard MD - 05/25/2020 10:21 AM CST Images from the original note were not included. [facility] Preoperative Assessment and Planning Preoperative Evaluation Record Evaluation type/location: TPAP from [facility] Planned procedure site: [facility] OR Date: 05/25/20 NOTE: This note [...] Hypertension + Hyperlipidemia + CAD Pertinent negatives: DE ; valvular heart disease; atrial fibrillation; arrhythmia; [...] COVID19 testing to be performed on 05/27/2020. [facility] will contact patient to schedule testing. TPAP [...] D-3) 2,000 unit capsule 04/25/19 -- Laura Lopes MD Take 1 capsule (2,000 Units total) by mouth daily Patient taking differently: Take 6,000 Units by mouth personal property appraiser before breakfast cholestyramine (QUESTRAN) 4 gram packet () 09/04/19 05/24/20 Greyson Reeves MD Take 1 packet by mouth 3 (three) times a day with meals clotrimazole-betamethasone (LOTRISONE) cream -- -- Levon Kee MD coenzyme [id number] (CO Q-10, WITH VIT E,) 100-5 mg-unit capsule -- -- Levon Kee MD denosumab (XGEVA) 120 mg/1.7 mL (70 mg/mL) injection -- -- Levon Kee MD DULoxetine DR (CYMBALTA) 30 mg capsule 04/24/19 -- Laura Lopes MD Take 1 capsule (30 mg total) by mouth daily Patient taking differently: Take 30 mg by mouth personal property appraiser before breakfast fluticasone propionate (FLONASE) 50 mcg/actuation nasal spray -- -- Levon Kee MD gabapentin (NEURONTIN) 600 mg tablet 11/16/19 11/15/20 Eren Cr Jr., MD Take 1 tablet (600 mg total) by mouth 3 (three) times a day Notes: Acct [id number],Please expedite to patient montelukast (SINGULAIR) 10 mg [...] packet ??? clotrimazole-betamethasone (LOTRISONE) cream ??? coenzyme [id number] E (CO Q-10, WITH VIT E,) 100-5 [...] Medication protocol when under care of a [facility] Planned anesthesia: General Informed Consent: Anesthesia plan and risks discussed with patient. Consent and Attending signature: I and/or my designee have discussed the anesthesia plan, benefits, possible alternatives, parental presence at time of induction (if indicated), and clinically relevant risks that may include dental injury, unintentional awareness, and/or other complications. The patient and/or parent/legal guardian understand, and agree to proceed. All questions answered. ALING PROJECT ENGINEER ALING PROJECT ENGINEER documented in this encounter Plan of [...] 0741, Anesthesia Intra-op Given 05/30/2020 7:41 AM SIGNALING PROJECT ENGINEER 50 mcg Lactated Ringer's (LR) infusion 30 mL/hr, intravenous, Continuous, Starting on Sat05/30/20 at 0645, Pre-Op, Use a 500 ml bag for End Stage Renal Disease Patients Rate/Dose Change 05/30/2020 7:43 AM SIGNALING PROJECT ENGINEER 50 mL/hr New Bag 05/30/2020 6:39 AM SIGNALING PROJECT ENGINEER 30 mL/hr 30 mL/hr lidocaine PF (XYLOCAINE) 10 mg/mL (1 %) preservative free injection As needed, Starting on Sat05/30/20 at 0746, Anesthesia Intra-op Given 05/30/2020 7:46 AM SIGNALING PROJECT ENGINEER 50 mg propofoL (DIPRIVAN) IV intravenous, As needed, Starting on Sat05/30/20 at 0746, Anesthesia Intra-op Given 05/30/2020 7:51 AM SIGNALING PROJECT ENGINEER 20 mg Given 05/30/2020 7:50 AM SIGNALING PROJECT ENGINEER 20 mg Given 05/30/2020 7:48 AM SIGNALING PROJECT ENGINEER 20 mg propofoL (DIPRIVAN) IV intravenous, Continuous PRN, Starting on Sat05/30/20 at 0747, Anesthesia Intra-op New Bag 05/30/2020 7:47 AM SIGNALING PROJECT ENGINEER 120 mcg/kg/min 60.41 mL/hr documented in this encounter Care Teams Enterprise Manager Relationship Specialty Start Date End Date Julio César Briseno MD PCP - General 10/01/16 Eren Cr MD Referring Physician Medical Oncology 11/25/18 Yohana Bowen MD Radiation Oncologist Radiation Oncology 11/25/18 documented as of this encounter
--- OUTSIDE RECORDS SUMMARY | 2024-06-26 02:14 | XMS_ITS | Encounter Summary ---
Author Organization [facility] Healthcare Address [address] [place] [address] Care Team Providers Care Technical Training Coordinator Name Role Phone Julio César Briseno MD Primary Care Provider Eren Cr MD Unavailable [phone] Yohana Bowen MD Unavailable Encounter Details Date Type Department Care Team (Late st Contact Info) Description 05/30/2020 8:00 AM PHOTONICS TECHNICIAN - 05/30/2020 9:00 AM PHOTONICS TECHNICIAN Surgery [facility] Operating Room [address] [place] [address] Thea Reeves MD [address] [facility] [address] [phone] [place] [address] EXAM UNDER ANESTHESIA - RECTUM Surgery Details Date/Time Status Location OR Service Patient Class Case Cl ass Case Type Trauma Case? 05/30/2020 8:00 AM Posted [facility] OPERATING ROOM OR 03 Colorectal Outpatient [...] on file Legal Sex Female 2:41 PM PHOTONICS TECHNICIAN Gender Identity Not on file Sexual Orientation Straight 02/19/2021 9: 29 AM CDT Occupation Industry Job Start Date Job End Date retired Not on file Not on file Not on file documented as of this encounter Last Filed Vital Signs Vital Sign Reading Time Taken Comments Blood Pressure 164/74 05/30/2020 8:35 AM PHOTONICS TECHNICIAN Pulse 72 05/30/2020 8:35 AM PHOTONICS TECHNICIAN Temperature 36.1 ??C (97 ??F) 05/30/2020 8:01 AM PHOTONICS TECHNICIAN Respiratory Rate 13 05/30/2020 8:35 AM PHOTONICS TECHNICIAN Oxygen Saturation 95% 05/30/2020 8:35 AM PHOTONICS TECHNICIAN Inhaled Oxygen Concentration - - Weight 83.9 kg (185 lb) 05/24/2020 12:50 PM PHOTONICS TECHNICIAN Height 160 cm (5' 3 ) 05/24/2020 12:50 PM PHOTONICS TECHNICIAN Body Mass Index 32.77 05/24/2020 12:50 PM PHOTONICS TECHNICIAN documented in this encounter Discharge Instructions * Discharge Instructions* Birgit Rain RN - 05/30/2020 8:10 AM PHOTONICS TECHNICIAN FAQs (frequently asked questions) about Surgical Site [...] therapy, we are available to assist: [facility] STAR: [facility] [phone] [place] [phone] [facility] [phone] How are some things that you can [...] given by your doctor or other health property caretaker. Moderate Sedation WHAT YOU NEED TO KNOW: [...] ask them during your visits. ?? 2017 [employer] Information is for End User's use only and may not be sold, redistributed or otherwise used for commercial purposes. All illustrations and images included in CareNotes?? are the copyrighted property of [employer]. or [employer]. The above information is an special education educational assistant only. It is not intended as medical advice for individual conditions or treatments. Talk to your doctor, nurse or pharmacist before following any medical regimen to see if it is safe and effective for you. ONICS TECHNICIAN documented in this encounter Medications at Time of Discharge [facility] Patient has colostomy and needs Cavilon 3M skin barrier film to manage. 20 each 6 09/21/2019 simvastatin (ZOCOR) 20 mg tablet Take 1 tablet (20 mg total) by mouth nightly ascorbic acid, vitamin C, 500 mg capsuleIndications :supplement Take 1 tablet by mouth lining presser before breakfast 07/04/2016 4 cholecalciferol (VITAMIN D-3) 2,000 unit capsule Take 1 capsule (2,000 Units total) by mouth daily 30 capsule 2 04/25/2019 3 cholestyramine (QUESTRAN) 4 gram packet Take 1 packet by mouth 3 (three) times a day with meals 270 packet 3 09/04/2019 2 clotrimazole-betam ethasone (LOTRISONE) cream Apply 1 Application topically daily as needed (rash) 4 coenzyme P20-tdnykuz E 100-5 mg-unit capsuleIndications :supplement Take 1 tablet by mouth lining presser before breakfast 4 denosumab (XGEVA) 120 mg/1.7 [...] Thea Reeves MD at 05/30/2020 7:23 AM PHOTONICS TECHNICIAN ONICS TECHNICIAN ONICS TECHNICIAN Source Note - Thea Reeves MD - 05/24/2020 10:00 AM PHOTONICS TECHNICIAN Colorectal Surgery Clinic Visit Chief Complaint: La [...] > 5 YEARS N/A 08/04/2019 ? ? IA REMOVAL OF TONSILS,<12 Y/O Tonsillectomy - (Added by TW Conv) ??? IA TOTAL ABDOM HYSTERECTOMY Hysterectomy - (Added by TW Conv) HOME MEDICATIONS : ascorbic acid, vitamin C, 500 mg capsule cholecalciferol (VITAMIN D-3) 2,000 unit capsule cholestyramine (QUESTRAN) 4 gram packet clotrimazole-betamethasone (LOTRISONE) cream coenzyme R84-oxjgmeb E (CO Q-10, WITH VIT E,) 100-5 [...] lesions. Thea Reeves MD 05/24/2020 9:26 AM ONICS TECHNICIAN documented in this encounter Miscellaneous Notes * Op Note - Thea Reeves MD - 05/30/2020 8:00 AM CST SURGEON Thea Reeves MD AOC DIRECTOR INTELLIGENCE OFFICER: PREOPERATIVE DIAGNOSIS: Pseudo epithelial hyperplasia of the [...] for the entire case. THEA REEVES M.D. ONICS TECHNICIAN * Pre-Procedure Instructions - Feliciano, Mayank Ruizelle, CECILIA - 05/25/2020 10:28 AM CST [facility] Location: [facility] The night before your surgery: * [...] take on day of surgery ??? coenzyme J97-vlefgen E (CO Q-10, WITH VIT E,) 100-5 [...] bowel prep or special diet before surgery ONICS TECHNICIAN * Perioperative Nursing Note - Yvonne Torres RN - 05/24/2020 1:01 PM PHOTONICS TECHNICIAN [place] for Preoperative Assessment and Planning Perioperative Nursing Note Telephone Preoperative Evaluation ([facility]) - TELEPHONE ONLY, NO PHYSICAL EXAM Date: [...] mg capsule Take 1 tablet by mouth lining presser before breakfast ??? cholecalciferol (VITAMIN D-3) 2,000 unit capsule Take 1 capsule (2,000 Units total) by mouth daily (Patient taking differently: Take 6,000 Units by mouth lining presser before breakfast ) 30 capsule 2 ??? cholestyramine (QUESTRAN) 4 gram packet Take 1 packet by mouth 3 (three) times a day with [id number] packet 3 ??? clotrimazole-betamethasone (LOTRISONE) cream clotrimazole-betamethasone 1 %- 0.05 % topical cream APPLY EXTERNALLY TO ABDOMEN TWICE DAILY NEEDED ??? coenzyme I57-wsswoys E (CO Q-10, WITH VIT E,) 100-5 mg-unit capsule Take by mouth early morningbefore breakfast ??? denosumab (XGEVA) 120 mg/1.7 mL (70 mg/mL) injection Inject under the skin every 30 (thirty) days ??? DULoxetine DR (CYMBALTA) 30 mg capsule Take 1 capsule (30 mg total) by mouth daily (Patient taking differently: Take 30 mg by mouth lining presser before breakfast ) 30 capsule 2 ??? [...] per tablet Take 0.5 tablets by mouth lining presser before breakfast decrease dosage to 0.5 tablet daily 05/14/[address] Briseno at office visit. ??? ondansetron (ZOFRAN) 8 mg tablet Take 1 tablet (8 mg total) by mouth every 8 (eight) hours as needed for nausea or vomiting 20 tablet 3 ??? ostomy supplies [facility] Patient has colostomy and needs Cavilon 3M [...] directive Information Provided on Healthcare Directives: No Communication/Yoghurt Maker Needs Communication Needs: Glasses Assistive Devices/DME: Eyeglasses [...] 3 weeks?: (!) Yes(exposed 05/13/2020/tested negative at [facility] 05/20/2020) Do you live in or work in a congregate living facility (ex. assisted living/snf facility, custodial, mcc)?: No Have you tested positive for COVID-19 [...] 20 seconds. Use an alcohol- based hand executive relations specialist that contains at least 60% alcohol if soap and water are not available. ADDITIONAL COMMENTS/ FOLLOW UP ONICS TECHNICIAN * Pre-Procedure Instructions - Yvonne Torres RN - 05/24/2020 12:59 PM PHOTONICS TECHNICIAN PRE-SURGICAL INSTRUCTIONS ??? General Information ?? Surgery [...] insurance card, a photo ID (like a Woodworking Machine Offbearer's license) and a method of payment for [...] Test to be performed on 05/27 at [facility], If you have COVID testing or should have COVID testing for your surgery/procedure, please read below section: If you need to reschedule your COVID test to a different location or if your surgery gets rescheduled, you MUST call [phone] Saturday-Saturday 8am-4:30pm to get your COVID testing rescheduled or your lab order will not be available at Testing Sites. COVID Testing is only valid for up to 96 hours prior to surgery date, unless otherwise specified. If you are unable to reach staff at the above phone number, please call the CPAP Staff at [phone]. This number cannot order a lab test, [...] 20 seconds. Use an alcohol- based hand executive relations specialist that contains at least 60% alcohol if soap and water are not available. ALL Patients should read below section: All visitors/patients are being asked to wear a clean mask when entering the hospital. COVID 19 Updates & Visitor Policy: Please access [email or web address] for the most updated information. Surgery Times: ??? For patients having surgery @ [facility], [facility], if your surgeon's office has not notified you of your surgery time by NOON THE BUSINESS DAY BEFORE your surgery, please call [phone] and ask for your surgeon's office ONICS TECHNICIAN documented in this encounter Plan of Treatment Not on file documented as of this encounter Procedures Procedure Name Priority Date/Time Associated Diagnosis Comments FULGURATION PARASTOMAL EPITHELIAL HYPERPLASIA 05/30/2020 7:43 AM PHOTONICS TECHNICIAN Pseudoepitheliomatous hyperplasia EXAM UNDER ANESTHESIA - RECTUM 05/30/2020 7:43 AM PHOTONICS TECHNICIAN Pseudoepitheliomatous hyperplasia documented in this encounter Visit [...] at 0754, Intra-Op Given 05/30/2020 7:54 AM PHOTONICS TECHNICIAN 20 mL Surgical Site Lactated Ringer's (LR) infusion 30 mL/hr, intravenous, Continuous, Starting on Sat05/30/20 at 0645, Pre-Op, Use a 500 ml bag for End Stage Renal Disease Patients Rate/Dose Change 05/30/2020 7:43 AM PHOTONICS TECHNICIAN 50 mL/hr New Bag 05/30/2020 6:39 AM PHOTONICS TECHNICIAN 30 mL/hr 30 mL/hr scopolamine patch 72 [...] and Vomiting Medication Applied 05/30/2020 6:41 AM PHOTONICS TECHNICIAN 1 patch Behind Right Ear sodium chloride 0.9 % irrigation As needed, Starting on Sat05/30/20 at 0751, Intra-Op Given 05/30/2020 7:51 AM PHOTONICS TECHNICIAN 250 mL Surgical Site documented in this encounter Historical Medications * This list may reflect changes made after this encounter. denosumab (XGEVA) 120 mg/1.7 mL (70 mg/mL) injection Inject under the skin every 30 (thirty) days 11/13/2021 octreotide (SandoSTATIN) 50 mcg/mL (1 mL) syringe every 30 (thirty) days 04/09/2016 11/13/2021 added in this encounter Active and Recently Administered Medications Times are shown in PHOTONICS TECHNICIAN. Scheduled Medication Order 05/28/2020 05/29/2020 05/30/2020 scopolamine [...] 1st line pain med for patients at [facility]. Use as 2nd line at [facility] after [...] 05/30/2020 documented in this encounter Care Teams Technical Training Coordinator Relationship Specialty Start Date End Date JulioC ésar Briseno MD PCP - General 10/01/16 Eren Cr MD Referring Physician Medical Oncology 11/25/18 Yohana Bowen MD Radiation Oncologist Radiation Oncology 11/25/18 documented as of this encounter
--- OUTSIDE RECORDS SUMMARY | 2024-06-26 02:14 | XMS_ITS | Encounter Summary ---
Author Organization [facility] Address [address] [place] [address] Care Team Providers Care Hides Soaker Name Role Phone Julio César Briseno MD Primary Care Provider Eren Cr MD Unavailable [phone] Yohana Bowen MD Unavailable Encounter Details Date Type Department Care Team (Late st Contact Info) Description 05/24/2020 Telephone [facility] Testing Site - [facility]. [address] [place] [address] Thea Reeves MD [address] [facility] [phone] [place] [address] Social History Tobacco Use Types Packs/Day Years Used Date Smoking Tobacco: Never Smokeless Tobacco: Never Alcohol Use Standard Drinks/Week Comments Yes 1 (1 standard drink = 0.6 oz pur e alcohol) Comments No Sex and Gender Information Value Date Recorded Sex Assigned at Not on file Legal Sex Female 2:41 PM ROLL TRUCKER Gender Identity Not on file Sexual Orientation Straight 02/19/2021 9: 29 AM CDT Occupation Industry Job Start Date Job End Date retired Not on file Not on file Not on file documented as of this encounter Miscellaneous Notes * Addendum Note - Mitesh Chaudhari - 05/27/2020 2:57 PM CSTAddended by: MITESH CHAUDHARI on: 05/27/2020 02:57 PM Modules accepted: Orders TRUCKER * Telephone Encounter - Tracey Santos - [...] No ?? Please select the performing region: [facility] TRUCKER documented in this encounter Plan of Treatment Not on file documented as of this encounter Results * COVID-19 Coronavirus RNA Nasopharyngeal (05/27/2020 9:36 AM ROLL TRUCKER) COVID-19 RNA Not Detected [facility] Comment: Interpretive Data Testing performed at [facility] Molecular Infectious Disease Laboratory. The 2019-Novel Coronavirus [...] revised on 2019. First COVID-19 test? No [facility] Employeed in healthcare? No [facility] status? No [facility] Group care resident? No [facility] Hospitalized? No [facility] Is patient in ICU? No [facility] Symptomatic as defined by CDC? No [facility] Nasopharyngeal 05/27/2020 9: 36 AM ROLL TRUCKER 05/28/2020 8:36 AM ROLL TRUCKER Narrative JASON BLACK - 05/29/2020 6:35 AM ROLL TRUCKER What is the reason for testing?->Screening prior to scheduled procedure or surgery Thea Reeves MD LAB MICROBIOLOGY - GENERAL O RDERABLES Final Result [facility] Department [place] [address] documented in this encounter Visit Diagnoses Diagnosis Pre-procedure lab exam- Primary Pre-procedural laboratory examination Pre-procedure lab exam Pre-procedural laboratory examination documented in this encounter Care Teams Hides Soaker Relationship Specialty Start Date End Date Julio César Briseno MD PCP - General 10/01/16 Eren Cr MD Referring Physician Medical Oncology 11/25/18 Yohana Bowen MD Radiation Oncologist Radiation Oncology 11/25/18 documented as of this encounter
--- OUTSIDE RECORDS SUMMARY | 2024-06-26 02:14 | XMS_ITS | Encounter Summary ---
Author Organization [facility] Address [address] [place] [address] Phone Care Team Providers Care Melangeur Operator Name Role Phone Julio César Briseno MD Primary Care Provider Eren Cr MD Unavailable [phone] Yohana Bowen MD Unavailable Reason for Visit * Reason Onset Date Comments Lab Results 05/25/2020 Encounter Details Date Type Department Care Team (Late st Contact Info) Description 05/25/2020 Telephone [facility] Oncology [address] [place] [address] Eren Cr MD [address] [place], [place] [id number] Lab Results Social History Tobacco Use Types Packs/Day Years Used Date Smoking Tobacco: Never Smokeless Tobacco: Never Alcohol Use Standard Drinks/Week Comments Yes 1 (1 standard drink = 0.6 oz pur e alcohol) Comments No Sex and Gender Information Value Date Recorded Sex Assigned at Not on file Legal Sex Female 2:41 PM SURFACE LOGGING SYSTEMS LOGGER Gender Identity Not on file Sexual Orientation [...] interim for any problems, questions of concerns. ACE LOGGING SYSTEMS LOGGER documented in this encounter Plan of Treatment Not on file documented as of this encounter Visit Diagnoses Not on filedocumented in this encounter Care Teams Melangeur Operator Relationship Specialty Start Date End Date Julio César Briseno MD PCP - General 10/01/16 Eren Cr MD Referring Physician Medical Oncology 11/25/18 Yohana Bowen MD Radiation Oncologist Radiation Oncology 11/25/18 documented as of this encounter
--- OUTSIDE RECORDS SUMMARY | 2024-06-26 02:14 | XMS_ITS | Encounter Summary ---
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 7th [place] [address] Neuroendocrine carcinoma (CMS/HCC) (Primary Dx); Malignant neoplasm [...] on file Legal Sex Female 2:41 PM HEADWAITER/HEADWAITRESS Gender Identity Not on file Sexual Orientation Straight 02/19/2021 9: 29 AM CDT Occupation Industry Job Start Date Job End Date retired Not on file Not on file Not on file documented as of this encounter Last Filed Vital Signs Vital Sign Reading Time Taken Comments Blood Pressure 120/70 07/04/2020 3:41 PM HEADWAITER/HEADWAITRESS Pulse 70 07/04/2020 3:41 PM HEADWAITER/HEADWAITRESS Temperature 36.3 ??C (97.3 ??F) 07/04/2020 3:41 PM CS T Respiratory Rate - - Oxygen Saturation 97% 07/04/2020 3:41 PM HEADWAITER/HEADWAITRESS Inhaled Oxygen Concentration - - Weight 83.2 kg (183 lb 6.4 oz) 07/04/2020 3:41 P M HEADWAITER/HEADWAITRESS Height - - Body Mass Index 32.49 06/23/2020 2:55 PM HEADWAITER/HEADWAITRESS documented in this encounter Nursing Notes * Xochitl Jimenez RN - 07/04/2020 4:15 PM CST Pt received Octreotide IM via L dorsogluteal and xgeva SC via R lower abd, tolerated without incidence. Xochitl Jimenez RN WAITER/HEADWAITRESS documented in this encounter Plan of Treatment [...] metastasis,Neuro-endocrine carcinoma (HCC) Given 07/04/2020 4:35 PM HEADWAITER/HEADWAITRESS 120 mg Right Lower Abdomen octreotide LAR (SandoSTATIN LAR) extended release intramuscular injection 30 mg 30 mg, intramuscular, Once, On 07/04/20 at 1715, For 1 dose, Refrigerate. For IM intragluteal administration only- alternate gluteal sites. Shake.Indications:Malignan t neoplasm metastatic to liver (HCC),Neuroendocrine carcinoma (HCC) Given 07/04/2020 4:40 PM HEADWAITER/HEADWAITRESS 30 mg Left Dorsogluteal/Butto ck documented in this encounter Orders Nursing Count Last Ordered Date First Orde red Date ONCBCN NURSING COMMUNICATION [id number] 07/04 ONCBCN NURSING COMMUNICATION [id number] 1 1 09/04/2019 Appointment Requests Count Last Ordered Date Fi rst Ordered Date ONCBCN INJECTION APPOINTMENT REQUEST 1 06/08 documented in this encounter Care Teams Packing Shed Supervisor Relationship Specialty Start Date End Date Julio César Briseno MD PCP - General 10/01/16 Eren Cr MD Referring Physician Medical Oncology 11/25/18 Yohana Bowen MD Radiation Oncologist Radiation Oncology 11/25/18 documented as of this encounter
--- OUTSIDE RECORDS SUMMARY | 2024-06-26 02:14 | XMS_ITS | Encounter Summary ---
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) Procedures VA OCTREOTIDE INJECTION, DEPOT Octreotide 28 Day Cycles - Carcinoid Eren Cr MD [address] [facility] [address] [place] [address] Phone: tel: fax: [facility] [address] [address] Phone: tel: fax: Referral ID Status Reason Start Date Expiration Date V isits Requested Visits Authorized [id number] Authorized 11/28/2017 02/05/2025 1 150 Encounter Details Date Type Department Care Team (Late st Contact Info) Description 08/15/2020 2:00 PM JEWISH THOUGHT PROFESSOR Lab [facility] [address] [place] [address] Neuroendocrine carcinoma (CMS/HCC); Malignant neoplasm [...] on file Legal Sex Female 2:41 PM JEWISH THOUGHT PROFESSOR Gender Identity Not on file Sexual Orientation Straight 02/19/2021 9: 29 AM CDT Occupation Industry Job Start Date Job End Date retired Not on file Not on file Not on file documented as of this encounter Plan of Treatment Not on file documented as of this encounter Procedures Procedure Name Priority Date/Time Associated Diagnosis Comments DIFFERENTIAL AUTO Routine 08/15/2020 2:2 3 PM JEWISH THOUGHT PROFESSOR Neuroendocrine carcinoma (CMS/HCC) Malignant neoplasm metastatic to liver (CMS/HCC) CHROMOGRANIN A Routine 08/15/2020 2:23 PM JEWISH THOUGHT PROFESSOR Neuroendocrine carcinoma (CMS/HCC) Malignant neoplasm metastatic to liver (CMS/HCC) CBC WITH AUTO DIFFERENTIAL Routine 08/15/2020 2:23 PM JEWISH THOUGHT PROFESSOR Neuroendocrine carcinoma (CMS/HCC) Malignant neoplasm metastatic to liver (CMS/HCC) PHOSPHORUS STAT 08/15/2020 2:23 PM JEWISH THOUGHT PROFESSOR Bone metastasis (CMS/HCC) Neuroendocrine carcinoma (CMS/HCC) COMPREHENSIVE METABOLIC PANEL STAT 08/15/2020 2:23 PM JEWISH THOUGHT PROFESSOR Neuroendocrine carcinoma (CMS/HCC) Malignant neoplasm metastatic to liver (CMS/HCC) documented in this encounter Results * (ABNORMAL) Differential, auto (08/15/2020 2:23 PM JEWISH THOUGHT PROFESSOR) Neutrophil abs 3.6 1.8 - 6.6 K/cumm [facility] Comment:Testing performed by : [facility], [address] [place] [phone] Lymphocyte abs 0.4(L) 1.2 - 3.3 K/cumm [facility] Comment:Testing performed by : [facility], [address] [place] [phone] Monocyte abs 0.7 0.2 - 1.2 K/cumm [facility] Comment:Testing performed by : [facility], [address] [place] [phone] Eosinophil abs 0.1 0.0 - 0.5 K/cumm [facility] Comment:Testing performed by : [facility], [address] [place] [phone] Basophil abs 0.0 0.0 - 0.2 K/cumm [facility] Comment:Testing performed by : [facility], [address] [place] [phone] Neutrophil pct 75.3 % [facility] Comment: Interpretive Data Percent cell count reference ranges are not reported, since discordance with absolute values may lead to misinterpretation of CBC data. Current Interpretive Data was last revised on 2017. Testing performed by: [facility], [address] [place] [phone] Lymphocyte pct 8.0 % [facility] Comment: Interpretive Data Percent cell count reference ranges are not reported, since discordance with absolute values may lead to misinterpretation of CBC data. Current Interpretive Data was last revised on 2017. Testing performed by: [facility], [address] [place] [phone] Monocyte pct 14.6 % [facility] Comment:Testing performed by : [facility], [address] [place] [phone] Eosinophil pct 1.8 % [facility] Comment:Testing performed by : [facility], [address] [place] [phone] Basophil pct 0.3 % [facility] Comment:Testing performed by : [facility], [address] [place] [phone] Blood specimen (specimen) 08/15/2020 2:23 PM JEWISH THOUGHT PROFESSOR 08/15/2020 2:28 PM JEWISH THOUGHT PROFESSOR Eren Cr MD LAB BLOOD ORDERABLES Final Re sult Performing Organization Address [facility] Co de Phone Number [facility] [place] [address] * Phosphorus (08/15/2020 2:23 PM JEWISH THOUGHT PROFESSOR) Pathologist [facility] Phosphorus, pl 2.5 2.3 - 4.5 mg/dL [facility] Comment:Testing performed by : [facility], [address] [place] [phone] Blood specimen (specimen) 08/15/2020 2:23 PM JEWISH THOUGHT PROFESSOR 08/15/2020 2:28 PM JEWISH THOUGHT PROFESSOR Eren Cr MD LAB BLOOD ORDERABLES Final Re sult Performing Organization Address [facility] Co de Phone Number [facility] [place] [address] * (ABNORMAL) CBC with auto differential (08/15/2020 2:23 PM JEWISH THOUGHT PROFESSOR) [facility] WBC 4.7 3.8 - 9.8 K/cumm [facility] Comment:Testing performed by : [facility], [address] [place] [phone] Hgb 12.9 12.1 - 15.1 g/dL [facility] Comment:Testing performed by : [address] [address] Hct 37.7 36.1 - 44.3 % [facility] Comment:Testing performed by : [facility], [address] [place] [phone] Plt 126(L) 140 - 440 K/cumm [facility] Comment:Testing performed by : [address] [address] MPV 7.3 6.8 - 10.4 fL [facility] Comment:Testing performed by : [address] [phone] RBC 4.11 3.90 - 5.00 M/cumm [facility] Comment:Testing performed by : [facility], [address] [place] [phone] MCV 91.8 80.0 - 97.6 fL [facility] Comment:Testing performed by : [facility], [address] [place] [phone] MCH 31.4 26.7 - 33.7 pg [facility] Comment:Testing performed by : [facility], [address] [place] [phone] MCHC 34.2 32.7 - 35.5 g/dL [facility] Comment:Testing performed by : [facility], [address] [place] [phone] RDW CV 13.8 11.8 - 14.6 % [facility] Comment:Testing performed by : [facility], [address] [place] [address] NRBC abs 0.01 0.00 - 0.01 K/cumm [facility] Comment:Testing performed by : [facility], [address] [place] [phone] Blood specimen (specimen) 08/15/2020 2:23 PM JEWISH THOUGHT PROFESSOR 08/15/2020 2:28 PM JEWISH THOUGHT PROFESSOR Eren Cr MD LAB BLOOD ORDERABLES Final Re sult [facility] [place] [address] * Comprehensive metabolic panel (08/15/2020 2:23 PM JEWISH THOUGHT PROFESSOR) Sodium 138 135 - 145 mmol/L [facility] Comment:Testing performed by : [facility], [address] [place] [phone] Potassium, pl 4.5 3.3 - 4.9 mmol/L [facility] Comment:Testing performed by : [facility], [address] [place] [phone] Chloride 104 97 - 110 mmol/L [facility] Comment:Testing performed by : [facility], [address] [place] [phone] CO2 30 22 - 32 mmol/L [facility] Comment:Testing performed by : [facility], [address] [place] [phone] Anion gap 4 2 - 15 mmol/L [facility] Comment:Testing performed by : [facility], [address] [place] [phone] BUN 15 8 - 25 mg/dL [facility] Comment:Testing performed by : [facility], [address] [place] [phone] Creatinine 0.97 0.60 - 1.10 mg/dL [facility] Comment:Testing performed by : [facility], [address] [place] [phone] Glucose 108 70 - 199 mg/dL [facility] [...] 2017. Testing performed by: [facility], [address] [place] [phone] Calcium 10.2 8.5 - 10.3 mg/dL [facility] Comment:Testing performed by : [facility], [address] [place] [phone] Bilirubin, total 0.4 0.1 - 1.2 mg/dL [facility] Comment:Testing performed by : [facility], [address] [place] [phone] Protein, pl 6.6 6.5 - 8.5 g/dL [facility] Comment:Testing performed by : [facility], [address] [place] [phone] Albumin 4.0 3.5 - 5.0 g/dL [facility] Comment:Testing performed by : [facility], [address] [place] [phone] Alk phos 83 40 - 130 Units/L [facility] Comment:Testing performed by : [facility], [address] [facility] [address] ALT 18 7 - 45 Units/L [facility] Comment:Testing performed by : [facility], [address] [facility] [address] AST 21 10 - 45 Units/L [facility] Comment:Testing performed by : [facility], [facility], [facility] [phone] Blood specimen (specimen) 08/15/2020 2:23 PM JEWISH THOUGHT PROFESSOR 08/15/2020 2:28 PM JEWISH THOUGHT PROFESSOR Eren Cr MD LAB BLOOD ORDERABLES Final Re sult [facility] [place] [address] * (ABNORMAL) Chromogranin A (08/15/2020 2:23 PM JEWISH THOUGHT PROFESSOR) Chromogranin A 389(H) <93 ng/mL [facility] Comment: Impaired renal or hepatic function or treatment with proton pump inhibitors may result in artifactual elevations of Chromogranin A. ADDITIONAL INFORMATION This test was developed and its performance characteristics determined by [facility] in a manner consistent with CLIA [...] of malignant disease. Test Performed by: [facility] [address] [place] [address] Crisis Intervention Specialist: Immanuel Novak M.D. Ph.D.; CLIA# [id number] Blood specimen (specimen) 08/15/2020 2:23 PM JEWISH THOUGHT PROFESSOR 08/15/2020 5:59 PM JEWISH THOUGHT PROFESSOR us Eren Cr MD LAB BLOOD ORDERABLES Final Re sult [facility] [place] [address] documented in this encounter Visit Diagnoses Diagnosis Neuroendocrine carcinoma (HCC) Other malignant neoplasm of unspecified site Malignant neoplasm metastatic to liver (HCC) Bone metastasis Secondary malignant neoplasm of bone and bone marrow documented in this encounter Orders Appointment Requests Count Last Ordered Date Fi rst Ordered Date ONCBCN LAB APPOINTMENT 1 08/15/2020 documented in this encounter Care Teams Shipping Packer Relationship Specialty Start Date End Date Julio César Briseno MD PCP - General 10/01/16 Eren Cr MD Referring Physician Medical Oncology 11/25/18 Yohana Bowen MD Radiation Oncologist Radiation Oncology 11/25/18 documented as of this encounter
--- OUTSIDE RECORDS SUMMARY | 2024-06-26 02:14 | XMS_ITS | Encounter Summary ---
Author Organization [facility] Healthcare Address [address] [place] [address] Care Team Providers Care Traveling Clerk Name Role Phone Julio César Briseno MD Primary Care Provider [phone] Eren Cr MD Unavailable [phone] Yohana Bowen MD Unavailable Reason for Referral * Diagnostic Imaging (Routine) - Closed Specialty Diagnoses / Procedures Referred By Contac t Referred To Contact Radiology Diagnoses Neuro-endocrine carcinoma (HCC) Bone metastasis Malignant neoplasm metastatic to liver (HCC) Procedures CT Chest Abdomen W Contrast Eren Cr MD [address] [place] [address] Phone: tel: fax: [facility] [address] [place] [address] Referral ID Status Reason Start Date Expiration Date Visits Re quested Visits Authorized [id number] Closed 05/09/2020 06/08/2021 1 1 DROGENATION OPERATOR HEAD * MRI/CAT/PET Scan (Routine) - Closed Specialty Diagnoses / Procedures Referred By Contac t Referred To Contact Radiology Diagnoses Neuro-endocrine carcinoma (HCC) Bone metastasis Malignant neoplasm metastatic to liver (HCC) Procedures CT soft tissue neck with contrast Eren Cr MD [address] [facility] [address] [place] [address] Phone: tel: fax: [address] [address] Referral ID Status Reason Start Date Expiration Date Visits Re quested Visits Authorized [id number] Closed 05/09/2020 06/08/2021 1 1 DROGENATION OPERATOR HEAD Reason for Visit * Diagnostic Imaging (Routine) - Closed Specialty Diagnoses / Procedures Referred By Contac t Referred To Contact Radiology Diagnoses Neuro-endocrine carcinoma (HCC) Bone metastasis Malignant neoplasm metastatic to liver (HCC) Procedures CT Chest Abdomen W Contrast Eren Cr MD [address] [facility] [address] [place] [address] Phone: tel: fax: [address] [address] Referral ID Status Reason Start Date Expiration Date Visits Re quested Visits Authorized [id number] Closed 05/09/2020 06/08/2021 1 1 Encounter Details Date Type Department Care Team (Latest Contact Info) Description 08/01/2020 3:14 PM DEHYDROGENATION OPERATOR HEAD - 08/01/2020 11:59 PM DEHYDROGENATION OPERATOR HEAD Hospital Encounter [facility] [address] [place] [address] Eren Cr MD [address] [facility] [address] [address] Neuro-endocrine carcinoma (CMS/HCC); Bone metastasis (CMS/HCC); Malignant [...] on file Legal Sex Female 2:41 PM DEHYDROGENATION OPERATOR HEAD Gender Identity Not on file Sexual Orientation [...] capsuleIndications :supplement Take 1 tablet by mouth [facility] before breakfast 07/04/2016 4 cholecalciferol (VITAMIN D-3) 2,000 unit capsule Take 1 capsule (2,000 Units total) by mouth daily 30 capsule 2 04/25/2019 3 cholestyramine (QUESTRAN) 4 gram packet Take 1 packet by mouth 3 (three) times a day with meals 270 packet 3 09/04/2019 2 clotrimazole-betam ethasone (LOTRISONE) cream Apply 1 Application topically daily as needed (rash) 4 coenzyme [id number] E 100-5 mg-unit capsuleIndications :supplement Take [address] before breakfast 4 denosumab (XGEVA) 120 mg/1.7 [...] Read Routine (OP Routine) 08/01/2020 3:38 PM DEHYDROGENATION OPERATOR HEAD Neuro-endocrine carcinoma (CMS/HCC) Bone metastasis (CMS/HCC) Malignant neoplasm metastatic to liver (CMS/HCC) CT SOFT TISSUE NECK W CONTRAST Schedule Routine, Read Routine (OP Routine) 08/01/2020 3:38 PM DEHYDROGENATION OPERATOR HEAD Neuro-endocrine carcinoma (CMS/HCC) Bone metastasis (CMS/HCC) Malignant neoplasm metastatic to liver (CMS/HCC) documented in this encounter Results * CT Chest Abdomen W Contrast (08/01/2020 3:38 PM DEHYDROGENATION OPERATOR HEAD) Anatomical Region Laterality Modality Body N/A Computed Tomogra phy 08/01/2020 4:00 PM DEHYDROGENATION OPERATOR HEAD Impressions 08/01/2020 4:00 PM DEHYDROGENATION OPERATOR HEAD No significant change in multiple serosal hepatic metastases and omental metastatic disease. Electronically signed by: Cindy Llanes M.D. Narrative 08/01/2020 4:00 PM DEHYDROGENATION OPERATOR HEAD CT of the chest and abdomen with [...] tissue neck with contrast (08/01/2020 3:38 PM DEHYDROGENATION OPERATOR HEAD) Anatomical Region Laterality Modality Head and Neck N/A Computed Tomogra phy 08/01/2020 4:39 PM DEHYDROGENATION OPERATOR HEAD Impressions 08/01/2020 5:17 PM DEHYDROGENATION OPERATOR HEAD 1. ??Unchanged sclerotic lesion within the inferior right C7 articular facet likely representing metastasis given dotatate uptake. 2. ??Unchanged prominent right supraclavicular lymph node. Dictated by: Michael Balck M.D. The radiology attending physician has personally reviewed this study, and had reviewed and/or edited this written report and agrees with it. Electronically signed by: Elaine Sandoval M.D. Narrative 08/01/2020 5:17 PM DEHYDROGENATION OPERATOR HEAD EXAMINATION: CT of the neck with contrast [...] are normal. The limited view of the [place] is unremarkable. The visualized portions [...] are normal. The limited view of the [place] is unremarkable. The visualized portions [...] it. Electronically signed by: Elaine Sandoval M.D. rEen Cr MD [facility] CT PROCEDURES Final Resul t documented in [...] For 1 dose Given 08/01/2020 3:40 PM DEHYDROGENATION OPERATOR HEAD 100 mL ioversoL (OPTIRAY 350) syringe syringe 50 mL 50 mL, intravenous, Once in imaging, contrast, Starting on 08/01/20 at 1533, For 1 dose Given 08/01/2020 3:40 PM DEHYDROGENATION OPERATOR HEAD 50 mL documented in this encounter Care Teams Traveling Clerk Relationship Specialty Start Date End Date Julio César Briseno MD PCP - General 10/01/16 Eren Cr MD Referring Physician Medical Oncology 11/25/18 Yohana Bowen MD Radiation Oncologist Radiation Oncology 11/25/18 documented as of this encounter
--- OUTSIDE RECORDS SUMMARY | 2024-06-26 02:14 | XMS_ITS | Encounter Summary ---
Author Organization [facility] Address [address] [place] [address] Phone Care Team Providers Care Armhole Baster Hand Name Role Phone Julio César Briseno MD Primary Care Provider [phone] Eren Cr MD Unavailable [phone] Yohana Bowen MD Unavailable Encounter Details Date Type Department Care Team (Late st Contact Info) Description 05/11/2020 Orders Only [facility] [address] [facility] Advanced Medicine 7th [place] [address] [place] [address] Eren Cr MD [address] [facility] [address] [place], [place] [id number] Bone metastasis (CMS/HCC) (Primary Dx); Neuroendocrine carcinoma [...] on file Legal Sex Female 2:41 PM SPECTROGRAPHER Gender Identity Not on file Sexual Orientation Straight 02/19/2021 9: 29 AM CDT Occupation Industry Job Start Date Job End Date retired Not on file Not on file Not on file documented as of this encounter Plan of Treatment Not on file documented as of this encounter Results * Phosphorus (07/04/2020 3:30 PM SPECTROGRAPHER) [facility] Phosphorus, pl 3.3 2.3 - 4.5 mg/dL [facility] Comment:Testing performed by : [facility], [address] [place] [phone] Blood specimen (specimen) 07/04/2020 3:30 PM SPECTROGRAPHER 07/04/2020 3:34 PM SPECTROGRAPHER us Eren Cr MD LAB BLOOD ORDERABLES Final Re sult Performing Organization Address [facility] Co de Phone Number [facility] [place] [place] [address] * Phosphorus (06/06/2020 3:37 PM SPECTROGRAPHER) [facility] Phosphorus, pl 2.5 2.3 - 4.5 mg/dL [facility] Comment:Testing performed by : [facility], [address] [place] [phone] Blood specimen (specimen) 06/06/2020 3:37 PM SPECTROGRAPHER 06/06/2020 3:39 PM SPECTROGRAPHER us Eren Cr MD LAB BLOOD ORDERABLES Final Re sult Performing Organization Address City/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
--- OUTSIDE RECORDS SUMMARY | 2024-06-26 02:14 | XMS_ITS | Encounter Summary ---
Author Organization [facility] Healthcare Address [address] [place] [address] Care Team Providers Care Legal Contracts Specialist Name Role Phone Julio César Briseno MD Primary Care Provider [phone] Eren Cr MD Unavailable [phone] Yohana Bowen MD Unavailable Sabrina Willard NP Unavailable [phone] Reason for Visit * Reason Comments Psychotherapy Encounter Details Date Type Department Care Team (Late st Contact Info) Description 08/22/2020 12:00 PM POWER REACTOR SUPERVISOR Clinical Support [address] 1[address] [place] [id number] Neeru Nails, PhD [address] [place] [address] Social History Tobacco Use Types Packs/Day Years Used Date Smoking Tobacco: Never Smokeless Tobacco: Never Alcohol Use Standard Drinks/Week Comments Yes 1 (1 standard drink = 0.6 oz pur e alcohol) Comments No Sex and Gender Information Value Date Recorded Sex Assigned at Not on file Legal Sex Female 2:41 PM POWER REACTOR SUPERVISOR Gender Identity Not on file Sexual Orientation Straight 02/19/2021 9: 29 AM CDT Occupation Industry Job Start Date Job End Date retired Not on file Not on file Not on file documented as of this encounter Progress Notes * Neeru Nails, PhD - 08/22/2020 12:00 PM CST [facility] [...] contact identified. Telehealth Modality: real-time video connection ([employer], Zoom or similar) Patient Location: [address] [place] [phone] Primary Secondary Phone Number: N/A Emergency Contact (person nearby): Extended Emergency Contact Information Primary Emergency Contact: Alejo Chung Relation: Spouse Secondary Emergency Contact: RobertoCaroline castellon Mobile Relation: Daughter Preferred language: [place] Pneumatic System Conveyor Operator needed? No Local Non-Emergency Contact: [facility] [phone] Nearest Emergency Department: [address] [address] Reason for Consultation: Referral Problem: Depressed Mood, Caregiver stress and Coping with her own cancer diagnosis/treatment Referral Source: Medical Oncologist, Sabrina Willard NP History of Problem: Problem History (Duration/Frequency/Intensity): Patient completed real-time video connection (InTouch, Zoom or similar) session alone at her home in [place] while provider was in [place]. There were no interruptions or disruptions in [...] other relevant oncology team members as needed. R REACTOR SUPERVISOR documented in this encounter Plan of Treatment Not on file documented as of this encounter Visit Diagnoses Not on filedocumented in this encounter Care Teams Legal Contracts Specialist Relationship Specialty Start Date End Date Julio César Briseno MD PCP - General 10/01/16 Eren Cr MD Referring Physician Medical Oncology 11/25/18 Yohana Bowen MD Radiation Oncologist Radiation Oncology 11/25/18 Sabrina Willard NP [address] [place] [address] Nurse Practitioner Medical Oncology 08/17/20 11/26/21 documented as of this encounter
--- OUTSIDE RECORDS SUMMARY | 2024-06-26 02:14 | XMS_ITS | Encounter Summary ---
Author Organization [facility] Address [address] [place] [address] Phone Care Team Providers Care Make Up Girl Name Role Phone Julio César Briseno MD Primary Care Provider Eren Cr MD Unavailable [phone] Yohana Bowen MD Unavailable Sabrina Willard NP Unavailable [phone] Encounter Details Date Type Department Care Team (Late st Contact Info) Description 08/17/[address] [facility] Oncology [address] [place] [address] Sabrina Willard, BRICK PITCHER [address] [place] [address] Social History Tobacco Use Types Packs/Day Years Used Date Smoking Tobacco: Never Smokeless Tobacco: Never Alcohol Use Standard Drinks/Week Comments Yes 1 (1 standard drink = 0.6 oz pur e alcohol) Comments No Sex and Gender Information Value Date Recorded Sex Assigned at Not on file Legal Sex Female 2:41 PM SALES FLOOR ASSOCIATE Gender Identity Not on file Sexual Orientation Straight 02/19/2021 9: 29 AM CDT Occupation Industry Job Start Date Job End Date retired Not on file Not on file Not on file documented as of this encounter Miscellaneous Notes * Telephone Encounter - Sabrina Willard NP - 08/17/2020 11:58 AM SALES FLOOR ASSOCIATE Called [place] to let her know the CT of head 08/15 was unremarkable for intracranial metastasis or bleed. She is pleased to hear the news. Asked her to call with any questions or issues before next visit as needed. S FLOOR ASSOCIATE documented in this encounter Plan of Treatment Not on file documented as of this encounter Visit Diagnoses Not on filedocumented in this encounter Care Teams Make Up Girl Relationship Specialty Start Date End Date Julio César Briseno MD PCP - General 10/01/16 Eren Cr MD Referring Physician Medical Oncology 11/25/18 Yohana Bowen MD Radiation Oncologist Radiation Oncology 11/25/18 Sabrina Willard NP [address] [place] [address] Nurse Practitioner Medical Oncology 08/17/20 11/26/21 documented as of this encounter
--- OUTSIDE RECORDS SUMMARY | 2024-06-26 02:14 | XMS_ITS | Encounter Summary ---
Author Organization [facility] Address [address] [place] [address] Phone Care Team Providers Care Ag Equipment Field Service Technician Name Role Phone Julio César Briseno MD Primary Care Provider [phone] Eren Cr MD Unavailable [phone] Yohana Bowen MD Unavailable Encounter Details Date Type Department Care Team (Late st Contact Info) Description 05/16/2020 8:00 AM PLANER FEEDER Lab [facility] Oncology [facility] 7th [place] [address] [place] [address] 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); Neuroendocrine carcinoma (CMS/HCC) Social History Tobacco Use Types Packs/Day Years Used Date Smoking Tobacco: Never Smokeless Tobacco: Never Alcohol Use Standard Drinks/Week Comments Yes 1 (1 standard drink = 0.6 oz pur e alcohol) Comments No Sex and Gender Information Value Date Recorded Sex Assigned at Not on file Legal Sex Female 2:41 PM PLANER FEEDER Gender Identity Not on file Sexual Orientation Straight 02/19/2021 9: 29 AM CDT Occupation Industry Job Start Date Job End Date retired Not on file Not on file Not on file documented as of this encounter Plan of Treatment Not on file documented as of this encounter Procedures Procedure Name Priority Date/Time Associated Diagnosis Comments CALCIUM LEVEL STAT 05/16/2020 8:08 AM PLANER FEEDER Malignant neoplasm metastatic to liver (CMS/HCC) Neuroendocrine carcinoma (CMS/HCC) documented in this encounter Results * Calcium level (05/16/2020 8:08 AM PLANER FEEDER) Calcium 10.3 8.5 - 10.3 mg/dL [facility] Comment:Testing performed by : [facility], [address] [place] [id number] Blood specimen (specimen) 05/16/2020 8:08 AM PLANER FEEDER 05/16/2020 8:09 AM PLANER FEEDER us Eren Cr MD LAB BLOOD ORDERABLES Final Re sult [facility] Department [place] [address] documented in this encounter Visit Diagnoses Diagnosis Malignant neoplasm metastatic to liver (HCC) Neuroendocrine carcinoma (HCC) Other malignant neoplasm of unspecified site documented in this encounter Orders Appointment Requests Count Last Ordered Date Fi rst Ordered Date ONCBCN LAB APPOINTMENT 1 05/16/2020 documented in this encounter Care Teams Ag Equipment Field Service Technician Relationship Specialty Start Date End Date Julio César Briseno MD PCP - General 10/01/16 Eren Cr MD Referring Physician Medical Oncology 11/25/18 Yohana Bowen MD Radiation Oncologist Radiation Oncology 11/25/18 documented as of this encounter
--- OUTSIDE RECORDS SUMMARY | 2024-06-26 02:14 | XMS_ITS | Encounter Summary ---
Author Organization [facility] Address [address] [place] [address] Phone Care Team Providers Care Community Music Therapist Name Role Phone Julio César Briseno MD Primary Care Provider [phone] Eren Cr MD Unavailable [phone] Yohana Bowen MD Unavailable Encounter Details Date Type Department Care Team (Late st Contact Info) Description 05/24/2020 8:00 AM RETAIL PHARMACY MERCHANDISER Lab [facility] Oncology [address] [place] [address] Malignant neoplasm metastatic to liver (CMS/HCC); Neuroendocrine tumor; Neuroendocrine carcinoma (CMS/HCC) Social History Tobacco Use Types Packs/Day Years Used Date Smoking Tobacco: Never Smokeless Tobacco: Never Alcohol Use Standard Drinks/Week Comments Yes 1 (1 standard drink = 0.6 oz pur e alcohol) Comments No Sex and Gender Information Value Date Recorded Sex Assigned at Not on file Legal Sex Female 2:41 PM RETAIL PHARMACY MERCHANDISER Gender Identity Not on file Sexual Orientation Straight 02/19/2021 9: 29 AM CDT Occupation Industry Job Start Date Job End Date retired Not on file Not on file Not on file documented as of this encounter Plan of Treatment Not on file documented as of this encounter Procedures Procedure Name Priority Date/Time Associated Diagnosis Comments CALCIUM LEVEL STAT 05/24/2020 8:08 AM RETAIL PHARMACY MERCHANDISER Malignant neoplasm metastatic to liver (CMS/HCC) Neuroendocrine carcinoma (CMS/HCC) documented in this encounter Results * Calcium level (05/24/2020 8:08 AM RETAIL PHARMACY MERCHANDISER) Calcium 10.3 8.5 - 10.3 mg/dL [facility] Blood specimen (specimen) 05/24/2020 8:08 AM RETAIL PHARMACY MERCHANDISER 05/24/2020 8:12 AM RETAIL PHARMACY MERCHANDISER us Eren rC MD LAB BLOOD ORDERABLES Final Re sult [facility] One [facility] Department [place] [address] documented in this encounter Visit Diagnoses Diagnosis Malignant neoplasm metastatic to liver (HCC) 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
--- OUTSIDE RECORDS SUMMARY | 2024-06-26 02:14 | XMS_ITS | Encounter Summary ---
Author Organization [facility] Address [address] [place] [address] Phone Care Team Providers Care Supervisor Histology Name Role Phone Julio César Briseno MD Primary Care Provider [phone] Eren Cr MD Unavailable [phone] Yohana Bowen MD Unavailable Reason for Visit * Reason Comments Injections * Episode Based Medications (Routine) - Authorized Specialty Diagnoses / Procedures Referred By Contellen t Referred To Contact Oncology Diagnoses Neuroendocrine carcinoma (HCC) Malignant neoplasm metastatic to liver (HCC) Procedures [place] OCTREOTIDE INJECTION, DEPOT Octreotide 28 Day Cycles - Carcinoid Eren Cr MD [address] [address] [place] [address] Phone: tel: fax: [address] [address] Phone: tel: fax: Referral ID Status Reason Start Date Expiration Date V isits Requested Visits Authorized [id number] Authorized 11/28/2017 02/05/2025 1 150 Encounter Details Date Type Department Care Team (Late st Contact Info) Description 06/06/2020 4:15 PM WATCH ASSEMBLY INSTRUCTOR Infusion [facility] Oncology [facility] 7th [place] [address] Neuroendocrine carcinoma (CMS/HCC) (Primary Dx); Malignant neoplasm [...] file Legal Sex Female 2:41 PM WATCH ASSEMBLY INSTRUCTOR Gender Identity Not on file Sexual Orientation Straight 02/19/2021 9: 29 AM CDT Occupation Industry Job Start Date Job End Date retired Not on file Not on file Not on file documented as of this encounter Last Filed Vital Signs Vital Sign Reading Time Taken Comments Blood Pressure 156/66 06/06/2020 3:47 PM WATCH ASSEMBLY INSTRUCTOR Pulse 78 06/06/2020 3:47 PM WATCH ASSEMBLY INSTRUCTOR Temperature 36.2 ??C (97.2 ??F) 06/06/2020 3:47 PM CS T Respiratory Rate 20 06/06/2020 3:47 PM WATCH ASSEMBLY INSTRUCTOR Oxygen Saturation 99% 06/06/2020 3:47 PM WATCH ASSEMBLY INSTRUCTOR Inhaled Oxygen Concentration - - Weight 83.8 kg (184 lb 11.9 oz) 06/06/2020 3:47 PM WATCH ASSEMBLY INSTRUCTOR Height - - Body Mass Index 32.73 05/24/2020 12:50 PM WATCH ASSEMBLY INSTRUCTOR documented in this encounter Nursing Notes * Ashanti Garcia RN - 06/06/2020 4:15 PM CST Pt tolerated injections without complications. AVS declined. Pt discharged ambulatory. H ASSEMBLY INSTRUCTOR documented in this encounter Plan of Treatment [...] metastasis,Neuro-endocrine carcinoma (HCC) Given 06/06/2020 4:16 PM WATCH ASSEMBLY INSTRUCTOR 120 mg Left Lower Abdomen octreotide LAR (SandoSTATIN LAR) extended release intramuscular injection 30 mg 30 mg, intramuscular, Once, On Sat06/06/20 at 1615, For 1 dose, Refrigerate. For IM intragluteal administration only- alternate gluteal sites. Shake.Indications:Malignan t neoplasm metastatic to liver (HCC),Neuroendocrine carcinoma (HCC) Given 06/06/2020 4:00 PM WATCH ASSEMBLY INSTRUCTOR 30 mg Left Dorsogluteal/Butto ck documented in this encounter Orders Nursing Count Last Ordered Date First Orde red Date ONCBCN NURSING COMMUNICATION [id number] 1 1 08/06/2019 Appointment Requests Count Last Ordered Date Fi rst Ordered Date ONCBCN INJECTION APPOINTMENT REQUEST 1 05/10 documented in this encounter Care Teams Supervisor Histology Relationship Specialty Start Date End Date Julio César Briseno MD PCP - General 10/01/16 Eren Cr MD Referring Physician Medical Oncology 11/25/18 Yohana Bowen MD Radiation Oncologist Radiation Oncology 11/25/18 documented as of this encounter
--- OUTSIDE RECORDS SUMMARY | 2024-06-26 02:14 | XMS_ITS | Encounter Summary ---
Author Organization [facility] Address [address] [place] [address] Phone Care Team Providers Care Tea Tree Farm Worker Name Role Phone Julio César Briseno MD Primary Care Provider Eren Cr MD Unavailable [phone] Yohana Bowen MD Unavailable Reason for Visit * Reason Onset Date Comments confirm surgery 05/27/2020 Encounter Details Date Type Department Care Team (Late st Contact Info) Description 05/27/2020 Telephone [facility] Surgery [address] [facility] 2nd Floor [address] [place] [address] Delfina Galloway RMA confirm surgery Social History Tobacco Use Types Packs/Day Years Used Date Smoking Tobacco: Never Smokeless Tobacco: Never Alcohol Use Standard Drinks/Week Comments Yes 1 (1 standard drink = 0.6 oz pur e alcohol) Comments No Sex and Gender Information Value Date Recorded Sex Assigned at Not on file Legal Sex Female 2:41 PM MACHINE HEDDLE CLEANER Gender Identity Not on file Sexual Orientation Straight 02/19/2021 9: 29 AM CDT Occupation Industry Job Start Date Job End Date retired Not on file Not on file Not on file documented as of this encounter Miscellaneous Notes * Telephone Encounter - Delfina Galloway RMA - 05/27/2020 12:43 PM MACHINE HEDDLE CLEANER Spoke to patient and confirmed prep and surgery for Saturday. Prep: is NPO after midnight, and a maintenance truck driver is needed to take them home after procedure. Shower: as directed by CPAP. Confirmed arrival time of 0600 at [facility], report to Emergency Entrance. Patient was made aware of current visitor policy and verbalized understanding. INE HEDDLE CLEANER documented in this encounter Plan of Treatment Not on file documented as of this encounter Visit Diagnoses Not on filedocumented in this encounter Care Teams Tea Tree Farm Worker Relationship Specialty Start Date End Date Julio César Briseno MD PCP - General 10/01/16 Erne Cr MD Referring Physician Medical Oncology 11/25/18 Yohana Bowen MD Radiation Oncologist Radiation Oncology 11/25/18 documented as of this encounter
--- OUTSIDE RECORDS SUMMARY | 2024-06-26 02:14 | XMS_ITS | Encounter Summary ---
Author Organization [facility] Address [address] [place] [address] Phone Care Team Providers Care Piping Engineer Name Role Phone Julio César Briseno MD Primary Care Provider [phone] Eren Cr MD Unavailable [phone] Yohana Bowen MD Unavailable Reason for Visit * Episode Based Medications (Routine) - Authorized Specialty Diagnoses / Procedures Referred By Evelyne t Referred To Contact Oncology Diagnoses Neuroendocrine carcinoma (HCC) Malignant neoplasm metastatic to liver (HCC) Procedures [place] OCTREOTIDE INJECTION, DEPOT Octreotide 28 Day Cycles - Carcinoid Eern Cr MD [address] [facility] [address] [place] [address] Phone: tel: fax: [facility] [address] [address] Phone: tel: fax: Referral ID Status Reason Start Date Expiration Date V isits Requested Visits Authorized [id number] Authorized 11/28/2017 02/05/2025 1 150 Encounter Details Date Type Department Care Team (Late st Contact Info) Description 08/15/2020 3:00 PM MANAGER AUDIO Infusion [facility] Oncology [address] [place] [address] [place] [address] Neuroendocrine carcinoma (CMS/HCC) (Primary Dx); Malignant neoplasm [...] file Legal Sex Female 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 AUDIO Gender Identity Not on file Sexual Orientation Straight 02/19/2021 9: 29 AM CDT Occupation Industry Job Start Date Job End Date retired Not on file Not on file Not on file documented as of this encounter Nursing Notes * Minerva Jones RN - 08/15/2020 3:00 PM CST Tolerated injections without difficulty. Discharged ambulatory with AVS. GER AUDIO documented in this encounter Plan of Treatment [...] metastasis,Neuro-endocrine carcinoma (HCC) Given 08/15/2020 4:45 PM MANAGER AUDIO 120 mg Right Lower Abdomen octreotide LAR (SandoSTATIN LAR) extended release intramuscular injection 30 mg 30 mg, intramuscular, Once, On Sat08/15/20 at 1700, For 1 dose, Refrigerate. For IM intragluteal administration only- alternate gluteal sites. Shake.Indications:Malignan t neoplasm metastatic to liver (HCC),Neuroendocrine carcinoma (HCC) Given 08/15/2020 5:00 PM MANAGER AUDIO 30 mg Right Dorsogluteal/Butto ck documented in this encounter Orders Nursing Count Last Ordered Date First Orde red Date ONCBCN NURSING COMMUNICATION [id number] 1 0 08/15/2020 PHYSICIAN COMMUNICATION ORDER 1 08/15/2020 Appointment Requests Count Last Ordered Date Fi rst Ordered Date ONCBCN INJECTION APPOINTMENT REQUEST 1 02/2021 documented in this encounter Care Teams Piping Engineer Relationship Specialty Start Date End Date Julio César Briseno MD PCP - General 10/01/16 Eren Cr MD Referring Physician Medical Oncology 11/25/18 Yohana Bowen MD Radiation Oncologist Radiation Oncology 11/25/18 documented as of this encounter
--- OUTSIDE RECORDS SUMMARY | 2024-06-26 02:14 | XMS_ITS | Encounter Summary ---
Author Organization [facility] Address [address] [place] [address] Phone Care Team Providers Care Tailer In Name Role Phone Julio César Briseno MD Primary Care Provider Eren Cr MD Unavailable Yohana Bowen MD Unavailable Encounter Details Date Type Department Care Team (Late st Contact Info) Description 07/04/2020 Orders Only [facility] Oncology [address] [facility] Advanced [facility] 7th [place] [address] [place] [address] Eren Cr MD [address] [facility] [address] [place] [address] Social History Tobacco Use Types Packs/Day Years Used Date Smoking Tobacco: Never Smokeless Tobacco: Never Alcohol Use Standard Drinks/Week Comments Yes 1 (1 standard drink = 0.6 oz pur e alcohol) Comments No Sex and Gender Information Value Date Recorded Sex Assigned at Not on file Legal Sex Female 2:41 PM PARK ATTENDANT Gender Identity Not on file Sexual Orientation Straight 02/19/2021 9: 29 AM CDT Occupation Industry Job Start Date Job End Date retired Not on file Not on file Not on file documented as of this encounter Plan of Treatment Not on file documented as of this encounter Visit Diagnoses Not on filedocumented in this encounter Care Teams Tailer In Relationship Specialty Start Date End Date Julio César Briseno MD PCP - General 10/01/16 Eren Cr MD Referring Physician Medical Oncology 11/25/18 Yohana Bowen MD Radiation Oncologist Radiation Oncology 11/25/18 documented as of this encounter
--- OUTSIDE RECORDS SUMMARY | 2024-06-26 02:14 | XMS_ITS | Encounter Summary ---
Author Organization [facility] Healthcare Address [address] [place] [address] Care Team Providers Care Bobbin Painter Name Role Phone Julio César Briseno MD Primary Care Provider [phone] Eren Cr MD Unavailable [phone] Yohana Bowen MD Unavailable Encounter Details Date Type Department Care Team (Latest Contact Info) Description 05/30/2020 5:55 AM PHOTOGRAPHIC PLATEMAKER - 05/30/2020 8:56 AM PHOTOGRAPHIC PLATEMAKER Hospital Encounter [facility] Operating Room [address] [place] [address] Thea Reeves MD [address] [facility] [phone] [place] [address] Discharge Disposition: Discharge to home or self care Social History Tobacco Use Types Packs/Day Years Used Date Smoking Tobacco: Never Smokeless Tobacco: Never Alcohol Use Standard Drinks/Week Comments Yes 1 (1 standard drink = 0.6 oz pur e alcohol) Comments No Sex and Gender Information Value Date Recorded Sex Assigned at Not on file Legal Sex Female 2:41 PM PHOTOGRAPHIC PLATEMAKER Gender Identity Not on file Sexual Orientation Straight 02/19/2021 9: 29 AM CDT Occupation Industry Job Start Date Job End Date retired Not on file Not on file Not on file documented as of this encounter Last Filed Vital Signs Vital Sign Reading Time Taken Comments Blood Pressure 164/74 05/30/2020 8:35 AM PHOTOGRAPHIC PLATEMAKER Pulse 72 05/30/2020 8:35 AM PHOTOGRAPHIC PLATEMAKER Temperature 36.1 ??C (97 ??F) 05/30/2020 8:01 AM PHOTOGRAPHIC PLATEMAKER Respiratory Rate 13 05/30/2020 8:35 AM PHOTOGRAPHIC PLATEMAKER Oxygen Saturation 95% 05/30/2020 8:35 AM PHOTOGRAPHIC PLATEMAKER Inhaled Oxygen Concentration - - Weight 83.9 kg (185 lb) 05/24/2020 12:50 PM PHOTOGRAPHIC PLATEMAKER Height 160 cm (5' 3 ) 05/24/2020 12:50 PM PHOTOGRAPHIC PLATEMAKER Body Mass Index 32.77 05/24/2020 12:50 PM PHOTOGRAPHIC PLATEMAKER documented in this encounter Discharge Diagnoses Diagnosis [...] - HYPERLIPIDEMIA, UNSPECIFIED Atherosclerotic heart disease of [place] coronary artery without angina pectoris - ATHEROSCLEROTIC HEART DISEASE OF [place] CORONARY ARTERY WITHOUT ANGINA PECTORIS Obesity, unspecified - OBESITY, UNSPECIFIED Gastro-esophageal reflux disease without esophagitis - GASTRO-ESOPHAGEAL REFLUX DISEASE WITHOUT ESOPHAGITIS Pure hypercholesterolemia, unspecified - PURE HYPERCHOLESTEROLEMIA, UNSPECIFIED Personal history of antineoplastic chemotherapy - PERSONAL HISTORY OF ANTINEOPLASTIC CHEMOTHERAPY Other prison (current) drug therapy - OTHER DIVIDEND DEPOSIT ENTRY CLERK (CURRENT) DRUG THERAPY documented in this encounter Discharge Instructions * Discharge Instructions* Goersch, Birgit M., RN - 05/30/2020 8:10 AM PHOTOGRAPHIC PLATEMAKER FAQs (frequently asked questions) about Surgical Site [...] physical therapy, we are available to assist: [facility] STAR: [facility] Luis Fernando [phone] [place] [phone] [facility] [phone] How are some things that you can [...] given by your doctor or other health child care supervisor. Moderate Sedation WHAT YOU NEED TO KNOW: [...] ask them during your visits. ?? 2017 [employer] Information is for End User's use only and may not be sold, redistributed or otherwise used for commercial purposes. All illustrations and images included in CareNotes?? are the copyrighted property of [employer] or [employer]. The above information is an transport aide only. It is not intended as medical advice for individual conditions or treatments. Talk to your doctor, nurse or pharmacist before following any medical regimen to see if it is safe and effective for you. OGRAPHIC PLATEMAKER documented in this encounter Medications at Time of Discharge ostomy supplies [facility] Patient has colostomy and needs Cavilon 3M skin barrier film to manage. 20 each 6 09/21/2019 simvastatin (ZOCOR) 20 mg tablet Take 1 tablet (20 mg total) by mouth nightly ascorbic acid, vitamin C, 500 mg capsuleIndications :supplement Take 1 tablet by mouth developmental education instructor before breakfast 07/04/2016 4 cholecalciferol (VITAMIN D-3) 2,000 unit capsule Take 1 capsule (2,000 Units total) by mouth daily 30 capsule 2 04/25/2019 3 cholestyramine (QUESTRAN) 4 gram packet Take 1 packet by mouth 3 (three) times a day with meals 270 packet 3 09/04/2019 2 clotrimazole-betam ethasone (LOTRISONE) cream Apply 1 Application topically daily as needed (rash) 4 coenzyme T17-yfgihjg E 100-5 mg-unit capsuleIndications :supplement Take 1 tablet by mouth developmental education instructor before breakfast 4 denosumab (XGEVA) 120 mg/1.7 [...] Thea Reeves MD at 05/30/2020 7:23 AM PHOTOGRAPHIC PLATEMAKER OGRAPHIC PLATEMAKER OGRAPHIC PLATEMAKER Source Note - Thea Reeves MD - 05/24/2020 10:00 AM PHOTOGRAPHIC PLATEMAKER Colorectal Surgery Clinic Visit Chief Complaint: La [...] > 5 YEARS N/A 08/04/2019 ? ? IN REMOVAL OF TONSILS,<12 Y/O Tonsillectomy - (Added by TW Conv) ??? IN TOTAL ABDOM HYSTERECTOMY Hysterectomy - (Added by TW Conv) HOME MEDICATIONS : ascorbic acid, vitamin C, 500 mg capsule cholecalciferol (VITAMIN D-3) 2,000 unit capsule cholestyramine (QUESTRAN) 4 gram packet clotrimazole-betamethasone (LOTRISONE) cream coenzyme G32-ifwaksg E (CO Q-10, WITH VIT E,) 100-5 [...] lesions. Thea Reeves MD 05/24/2020 9:26 AM OGRAPHIC PLATEMAKER documented in this encounter Miscellaneous Notes * Op Note - Thea Reeves MD - 05/30/2020 8:00 AM CST SURGEON Thea Reeves MD DOCTOR OF RADIOLOGY: PREOPERATIVE DIAGNOSIS: Pseudo epithelial hyperplasia of the [...] for the entire case. THEA REEVES M.D. OGRAPHIC PLATEMAKER * Pre-Procedure Instructions - Mayank Feliciano NP - 05/25/2020 10:28 AM CST [facility] Location: [facility] The night before your surgery: * [...] take on day of surgery ??? coenzyme D66-dcxhbdz E (CO Q-10, WITH VIT E,) 100-5 [...] bowel prep or special diet before surgery OGRAPHIC PLATEMAKER * Perioperative Nursing Note - Yvonne Torres RN - 05/24/2020 1:01 PM PHOTOGRAPHIC PLATEMAKER [facility] Perioperative Nursing Note Telephone Preoperative Evaluation ([facility]) - TELEPHONE ONLY, NO PHYSICAL EXAM Date: [...] mg capsule Take 1 tablet by mouth developmental education instructor before breakfast ??? cholecalciferol (VITAMIN D-3) 2,000 unit capsule Take 1 capsule (2,000 Units total) by mouth daily (Patient taking differently: Take 6,000 Units by mouth developmental education instructor before breakfast ) 30 capsule 2 ??? cholestyramine (QUESTRAN) 4 gram packet Take 1 packet by mouth 3 (three) times a day with [id number] packet 3 ??? clotrimazole-betamethasone (LOTRISONE) cream clotrimazole-betamethasone 1 %- 0.05 % topical cream APPLY EXTERNALLY TO ABDOMEN TWICE DAILY NEEDED ??? coenzyme O25-zllrevr E (CO Q-10, WITH VIT E,) 100-5 mg-unit capsule Take by mouth early morningbefore breakfast ??? denosumab (XGEVA) 120 mg/1.7 mL (70 mg/mL) injection Inject under the skin every 30 (thirty) days ??? DULoxetine DR (CYMBALTA) 30 mg capsule Take 1 capsule (30 mg total) by mouth daily (Patient taking differently: Take 30 mg by mouth developmental education instructor before breakfast ) 30 capsule 2 ??? [...] per tablet Take 0.5 tablets by mouth developmental education instructor before breakfast decrease dosage to 0.5 tablet [...] directive Information Provided on Healthcare Directives: No Communication/Forder Operator Needs Communication Needs: Glasses Assistive Devices/DME: Eyeglasses [...] 3 weeks?: (!) Yes(exposed 05/13/2020/tested negative at [facility] 05/20/2020) Do you live in or work in a congregate living facility (ex. assisted living/prison facility, nursing home, skilled nursing)?: No Have you tested positive for COVID-19 [...] 20 seconds. Use an alcohol- based hand livestock exhibitor that contains at least 60% alcohol if soap and water are not available. ADDITIONAL COMMENTS/ FOLLOW UP OGRAPHIC PLATEMAKER * Pre-Procedure Instructions - Yvonne Torres RN - 05/24/2020 12:59 PM PHOTOGRAPHIC PLATEMAKER PRE-SURGICAL INSTRUCTIONS ??? General Information ?? Surgery [...] insurance card, a photo ID (like a Burlapper's license) and a method of payment for [...] COVID Test Request Placed in Epic to [facility]. Test to be performed on 05/27 at [facility], If you have COVID testing or should have COVID testing for your surgery/procedure, please read below section: If you need to reschedule your COVID test to a different location or if your surgery gets rescheduled, you MUST call [phone] Saturday-Saturday 8am-4:30pm to get your COVID testing rescheduled or your lab order will not be available at Testing Sites. COVID Testing is only valid for up to 96 hours prior to surgery date, unless otherwise specified. If you are unable to reach staff at the above phone number, please call the CPAP Staff at [phone]. This number cannot order a lab test, [...] 20 seconds. Use an alcohol- based hand livestock exhibitor that contains at least 60% alcohol if soap and water are not available. ALL Patients should read below section: All visitors/patients are being asked to wear a clean mask when entering the hospital. COVID 19 Updates & Visitor Policy: Please access [email or web address] for the most updated information. Surgery Times: ??? 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 Scheduled Medication Order 05/28/2020 05/29/2020 05/30/2020 scopolamine [...] 1st line pain med for patients at [facility]. Use as 2nd line at [facility] [...] 05/30/2020 documented in this encounter Care Teams Bobbin Painter Relationship Specialty Start Date End Date Julio César Briseno MD PCP - General 10/01/16 Eren Cr MD Referring Physician Medical Oncology 11/25/18 Yohana Bowen MD Radiation Oncologist Radiation Oncology 11/25/18 documented as of this encounter
--- OUTSIDE RECORDS SUMMARY | 2024-06-26 02:14 | XMS_ITS | Encounter Summary ---
Author Organization [facility] Healthcare Address [address] [place] [address] Care Team Providers Care Band Cutter Name Role Phone Julio César Briseno MD Primary Care Provider [phone] Eren Cr MD Unavailable [phone] Yohana Bowen MD Unavailable Encounter Details Date Type Department Care Team (Late st Contact Info) Description 05/27/2020 3:00 PM SUBSTATION INSPECTOR Lab [address] [address] Pre-procedure lab exam Social History Tobacco Use Types Packs/Day Years Used Date Smoking Tobacco: Never Smokeless Tobacco: Never Alcohol Use Standard Drinks/Week Comments Yes 1 (1 standard drink = 0.6 oz pur e alcohol) Comments No Sex and Gender Information Value Date Recorded Sex Assigned at Not on file Legal Sex Female 2:41 PM SUBSTATION INSPECTOR Gender Identity Not on file Sexual Orientation Straight 02/19/2021 9: 29 AM CDT Occupation Industry Job Start Date Job End Date retired Not on file Not on file Not on file documented as of this encounter Plan of Treatment Not on file documented as of this encounter Procedures Procedure Name Priority Date/Time Associated Diagnosis Comments COVID-19 CORONAVIRUS RNA Routine 05/27/2020 9:36 AM SUBSTATION INSPECTOR Pre-procedure lab exam documented in this encounter Results * COVID-19 Coronavirus RNA Nasopharyngeal (05/27/2020 9:36 AM SUBSTATION INSPECTOR) COVID-19 RNA Not Detected [facility] Comment: Interpretive Data Testing performed at [facility] Molecular Infectious Disease Laboratory. The [...] revised on 2019. First COVID-19 test? No [facility] Employeed in healthcare? No [facility] status? No [facility] Group care resident? No [facility] Hospitalized? No [facility] Is patient in ICU? No [facility] Symptomatic as defined by CDC? No [facility] Nasopharyngeal 05/27/2020 9: 36 AM SUBSTATION INSPECTOR 05/28/2020 8:36 AM SUBSTATION INSPECTOR Narrative [facility] - 05/29/2020 6:35 AM SUBSTATION INSPECTOR What is the reason for testing?->Screening prior to scheduled procedure or surgery us Greyson Reeves MD LAB MICROBIOLOGY - GENERAL O RDERABLES Final Result [facility] Department [place] [address] documented in this encounter Visit Diagnoses Diagnosis Pre-procedure lab exam Pre-procedural laboratory examination documented in this encounter Care Teams Band Cutter Relationship Specialty Start Date End Date Julio César Briseno MD PCP - General 10/01/16 Eren Cr MD Referring Physician Medical Oncology 11/25/18 Yohana Bowen MD Radiation Oncologist Radiation Oncology 11/25/18 documented as of this encounter
--- OUTSIDE RECORDS SUMMARY | 2024-06-26 02:14 | XMS_ITS | Encounter Summary ---
Author Organization [facility] Address [address] [place] [address] Phone Care Team Providers Care Pin Chaser Name Role Phone Julio César Briseno MD Primary Care Provider Eren Cr MD Unavailable [phone] Yohana Bowen MD Unavailable Encounter Details Date Type Department Care Team (Late st Contact Info) Description 08/11/2020 Orders Only [facility] Oncology [address] [facility] Advanced Medicine 7th [place] [address] [place] [address] Eren Cr MD [address] [facility] [address] [place] [address] Bone metastasis (CMS/HCC) (Primary Dx); Neuroendocrine carcinoma (CMS/HCC) Social History Tobacco Use Types Packs/Day Years Used Date Smoking Tobacco: Never Smokeless Tobacco: Never Alcohol Use Standard Drinks/Week Comments Yes 1 (1 standard drink = 0.6 oz pur e alcohol) Comments No Sex and Gender Information Value Date Recorded Sex Assigned at Not on file Legal Sex Female 2:41 PM GLASS OR MIRROR INSPECTOR Gender Identity Not on file Sexual Orientation Straight 02/19/2021 9: 29 AM CDT Occupation Industry Job Start Date Job End Date retired Not on file Not on file Not on file documented as of this encounter Plan of Treatment Not on file documented as of this encounter Results * Phosphorus (08/15/2020 2:23 PM GLASS OR MIRROR INSPECTOR) Phosphorus, pl 2.5 2.3 - 4.5 mg/dL [facility] Comment:Testing performed by : [facility], [address] [place] [phone] Blood specimen (specimen) 08/15/2020 2:23 PM GLASS OR MIRROR INSPECTOR 08/15/2020 2:28 PM GLASS OR MIRROR INSPECTOR us Eren Cr MD LAB BLOOD ORDERABLES Final Re sult [facility] Department [place] [address] documented in this encounter Visit Diagnoses Diagnosis Bone metastasis- Primary Secondary malignant neoplasm of bone and bone marrow Neuroendocrine carcinoma (HCC) Other malignant neoplasm of unspecified site documented in this encounter Care Teams Pin Chaser Relationship Specialty Start Date End Date Julio César Briseno MD PCP - General 10/01/16 Eren Cr MD Referring Physician Medical Oncology 11/25/18 Yohana Bowen MD Radiation Oncologist Radiation Oncology 11/25/18 documented as of this encounter
--- OUTSIDE RECORDS SUMMARY | 2024-06-26 02:14 | XMS_ITS | Encounter Summary ---
Author Organization [facility] Address [address] [place] [address] Phone Care Team Providers Care Bank Compliance Officer Name Role Phone Julio César Briseno MD Primary Care Provider Eren Cr MD Unavailable [phone] Yohana Bowen MD Unavailable Encounter Details Date Type Department Care Team (Late st Contact Info) Description 07/28/2020 Orders Only [facility] Oncology [address] [facility] Advanced Medicine 7th [place] [address] [place] [address] Eren Cr MD [address] [facility] [address] [place], [place] [id number] 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); Neuroendocrine carcinoma (CMS/HCC) Social History Tobacco Use Types Packs/Day Years Used Date Smoking Tobacco: Never Smokeless Tobacco: Never Alcohol Use Standard Drinks/Week Comments Yes 1 (1 standard drink = 0.6 oz pur e alcohol) Comments No Sex and Gender Information Value Date Recorded Sex Assigned at Not on file Legal Sex Female 2:41 PM JUNIOR AUTOMATION ENGINEER Gender Identity Not on file Sexual Orientation Straight 02/19/2021 9: 29 AM CDT Occupation Industry Job Start Date Job End Date retired Not on file Not on file Not on file documented as of this encounter Plan of Treatment Not on file documented as of this encounter Results * (ABNORMAL) Chromogranin A (08/15/2020 2:23 PM JUNIOR AUTOMATION ENGINEER) Chromogranin A 389(H) <93 ng/mL [facility] [...] absence of malignant disease. Test Performed by: [place] [address] Senior Software Development Manager: Immanuel Novak M.D. Ph.D.; CLIA# [id number] Blood specimen (specimen) 08/15/2020 2:23 PM JUNIOR AUTOMATION ENGINEER 08/15/2020 5:59 PM JUNIOR AUTOMATION ENGINEER Eren Cr MD LAB BLOOD ORDERABLES Final Re sult [facility] Department of [place] [address] * Comprehensive metabolic panel (08/15/2020 2:23 PM JUNIOR AUTOMATION ENGINEER) Pathologist [facility] Sodium 138 135 - 145 mmol/L [facility] Comment:Testing performed by : [facility], [address] [place] [phone] Potassium, pl 4.5 3.3 - 4.9 mmol/L [facility] Comment:Testing performed by : [facility], [address] [place] [phone] Chloride 104 97 - 110 mmol/L [facility] Comment:Testing performed by : [facility], [address] [place] [phone] CO2 30 22 - 32 mmol/L [facility] Comment:Testing performed by : [facility], [address] [place] [phone] Anion gap 4 2 - 15 mmol/L [facility] Comment:Testing performed by : [facility], [address] [place] [phone] BUN 15 8 - 25 mg/dL [facility] Comment:Testing performed by : [facility], [address] [place] [phone] Creatinine 0.97 0.60 - 1.10 mg/dL [facility] Comment:Testing performed by : [facility], [address] [place] [phone] Glucose 108 70 - 199 mg/dL CERNER [...] performed by: [facility], [address] [place] [phone] Calcium 10.2 8.5 - 10.3 mg/dL [facility] Comment:Testing performed by : [facility], [address] [place] [phone] Bilirubin, total 0.4 0.1 - 1.2 mg/dL [facility] Comment:Testing performed by : [facility], [address] [place] [phone] Protein, pl 6.6 6.5 - 8.5 g/dL [facility] Comment:Testing performed by : [facility], [address] [place] [phone] Albumin 4.0 3.5 - 5.0 g/dL [facility] Comment:Testing performed by : [facility], [address] [place] [phone] Alk phos 83 40 - 130 Units/L [facility] Comment:Testing performed by : [facility], [address] [place] [phone] ALT 18 7 - 45 Units/L [facility] Comment:Testing performed by : [facility], [address] [place] [phone] AST 21 10 - 45 Units/L [facility] Comment:Testing performed by : [facility], [address] [place] [phone] Blood specimen (specimen) 08/15/2020 2:23 PM JUNIOR AUTOMATION ENGINEER 08/15/2020 2:28 PM JUNIOR AUTOMATION ENGINEER us Eren Cr MD LAB BLOOD ORDERABLES Final Re sult [facility] Department of [place] [address] * (ABNORMAL) CBC with auto differential (08/15/2020 2:23 PM JUNIOR AUTOMATION ENGINEER) WBC 4.7 3.8 - 9.8 K/cumm [facility] Comment:Testing performed by : [facility], [address] [place] [phone] Hgb 12.9 12.1 - 15.1 g/dL [facility] Comment:Testing performed by : [facility], [address] [place] [phone] Hct 37.7 36.1 - 44.3 % [facility] Comment:Testing performed by : [facility], [address] [place] [phone] Plt 126(L) 140 - 440 K/cumm [facility] Comment:Testing performed by : [facility], [address] [place] [phone] MPV 7.3 6.8 - 10.4 fL [facility] Comment:Testing performed by : [facility], [address] [place] [phone] RBC 4.11 3.90 - 5.00 M/cumm [facility] Comment:Testing performed by : [facility], [address] [place], [place] [phone] MCV 91.8 80.0 - 97.6 fL [facility] Comment:Testing performed by : [address] [phone] MCH 31.4 26.7 - 33.7 pg [facility] Comment:Testing performed by : [facility], [address] [place] [phone] MCHC 34.2 32.7 - 35.5 g/dL [facility] Comment:Testing performed by : [facility], [address] [place] [phone] RDW CV 13.8 11.8 - 14.6 % [facility] Comment:Testing performed by : [facility], [address] [place] [phone] NRBC abs 0.01 0.00 - 0.01 K/cumm [facility] Comment:Testing performed by : [facility], [address] [place] [phone] Blood specimen (specimen) 08/15/2020 2:23 PM JUNIOR AUTOMATION ENGINEER 08/15/2020 2:28 PM JUNIOR AUTOMATION ENGINEER us Eren Cr MD LAB BLOOD ORDERABLES Final Re sult Performing Organization Address City/State/[facility] Co de Phone Number [facility] Department [place] [address] documented in this encounter Visit Diagnoses Diagnosis Malignant neoplasm metastatic to liver (HCC)- Primary Neuroendocrine carcinoma (HCC) Other malignant neoplasm of unspecified site documented in this encounter Orders Appointment Requests Count Last Ordered Date Fi rst Ordered Date ONCBCN CLINIC APPOINTMENT REQUEST 1 021 ONCBCN INJECTION APPOINTMENT REQUEST 1 02/2021 ONCBCN LAB APPOINTMENT 1 08/15/2020 documented in this encounter Care Teams Bank Compliance Officer Relationship Specialty Start Date End Date Julio César Briseno MD PCP - General 10/01/16 Eren Cr MD Referring Physician Medical Oncology 11/25/18 Yohana Bowen MD Radiation Oncologist Radiation Oncology 11/25/18 documented as of this encounter
--- OUTSIDE RECORDS SUMMARY | 2024-06-26 02:14 | XMS_ITS | Encounter Summary ---
Author Organization [facility] Address [address] [place] [address] Phone Care Team Providers Care Sawsmith Name Role Phone Julio César Briseno MD Primary Care Provider [phone] Eren Cr MD Unavailable [phone] Yohana Bowen MD Unavailable Reason for Referral * MRI/CAT/PET Scan (Routine) - Closed Specialty Diagnoses / Procedures Referred By Evelyne bowman Referred To Contact Radiology Diagnoses 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) Procedures CT soft tissue neck with contrast Eren Cr MD [address] [place] [address] Phone: tel: fax: [address] [phone] Referral ID Status Reason Start Date Expiration Date Visits Re quested Visits Authorized [id number] Closed 08/15/2020 09/14/2021 1 1 ACY DIRECTOR * MRI/CAT/PET Scan (Routine) - Closed Specialty Diagnoses / Procedures Referred By Contac Referred To Contact Radiology Diagnoses 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) Procedures CT chest abdomen pelvis with contrast Eren Cr MD [address] [facility] [address] [address] Phone: tel: fax: [address] [phone] Referral ID Status Reason Start Date Expiration Date Visits Re quested Visits Authorized [id number] Closed 08/15/2020 09/14/2021 1 1 ACY DIRECTOR * MRI/CAT/PET Scan (Routine) - Closed Specialty Diagnoses / Procedures Referred By Contac t Referred To Contact Radiology Diagnoses 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) Procedures CT head with contrast Eren Cr MD 49[address] [facility] [address] [address] Phone: tel: fax: [address] [phone] Referral ID Status Reason Start Date Expiration Date Visits Re quested Visits Authorized [id number] Closed 08/15/2020 09/14/2021 1 1 ACY DIRECTOR 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) Procedures RI OCTREOTIDE INJECTION, DEPOT Octreotide 28 Day Cycles - Carcinoid Eren Cr MD [address] [facility] [address] [address] Phone: tel: fax: [address] [address] Phone: tel: fax: Referral ID Status Reason Start Date Expiration Date V isits Requested Visits Authorized [id number] Authorized 11/28/2017 02/05/2025 1 150 Encounter Details Date Type Department Care Team (Late st Contact Info) Description 08/15/2020 2:30 PM PRIVACY DIRECTOR Office Visit [facility] [address] [facility] 7th [place] [address] [place] [address] Eren Cr MD 49[address] [facility] [address] [place] [address] Bone metastasis (CMS/HCC) (Primary Dx); Neuroendocrine carcinoma [...] on file Legal Sex Female 2:41 PM PRIVACY DIRECTOR Gender Identity Not on file Sexual Orientation Straight 02/19/2021 9: 29 AM CDT Occupation Industry Job Start Date Job End Date retired Not on file Not on file Not on file documented as of this encounter Last Filed Vital Signs Vital Sign Reading Time Taken Comments Blood Pressure 141/65 08/15/2020 2:45 PM PRIVACY DIRECTOR Pulse 72 08/15/2020 2:45 PM PRIVACY DIRECTOR Temperature 36.3 ??C (97.3 ??F) 08/15/2020 2:45 PM CS T Respiratory Rate 18 08/15/2020 2:45 PM PRIVACY DIRECTOR Oxygen Saturation 96% 08/15/2020 2:45 PM PRIVACY DIRECTOR Inhaled Oxygen Concentration - - Weight 84.8 kg (187 lb) 08/15/2020 2:45 PM PRIVACY DIRECTOR Height - - Body Mass Index 33.13 06/23/2020 2:55 PM PRIVACY DIRECTOR documented in this encounter Progress Notes * [...] right colectomy in [facility] [place] by Dr. Greyson Reeves. Biopsy [...] are normal. The limited view of the [place] is unremarkable. The visualized portions [...] Sabrina Willard NP Division of Medical Oncology Instrumentation Tech completed by using [employer] Direct speaking software, therefore, transcriptionvariances may occur. Cosigned by Eren Cr Jr., MD at 08/17/2020 4:19 PM PRIVACY DIRECTOR ACY DIRECTOR ACY DIRECTOR documented in this encounter Plan of Treatment Not on file documented as of this encounter Results * Comprehensive metabolic panel (12/06/2020 3:09 PM CDT) Sodium 138 135 - 145 mmol/L [facility] Comment:Testing performed by : [facility], [address] [place] [phone] Potassium, pl 3.8 3.3 - 4.9 mmol/L [facility] Comment:Testing performed by : [facility], [address] [place] [phone] Chloride 103 97 - 110 mmol/L [facility] Comment:Testing performed by : [facility], [address] [place] [phone] CO2 31 22 - 32 mmol/L [facility] Comment:Testing performed by : [facility], [address] [place] [phone] Anion gap 4 2 - 15 mmol/L [facility] Comment:Testing performed by : [facility], [address] [place] [phone] BUN 16 8 - 25 mg/dL [facility] Comment:Testing performed by : [facility], [address] [place] [phone] Creatinine 0.97 0.60 - 1.10 mg/dL [facility] Comment:Testing performed by : [facility], [address] [place] [phone] Glucose 137 70 - 199 mg/dL CERNER [...] was last revised 2017. Testing performed by: [address] Calcium 10.1 8.5 - 10.3 mg/dL [facility] Comment:Testing performed by : [place] [address] Bilirubin, total 0.4 0.1 - 1.2 mg/dL [facility] Comment:Testing performed by : [address] [address] Protein, pl 6.6 6.5 - 8.5 g/dL [facility] Comment:Testing performed by : [address] [address] Albumin 4.2 3.5 - 5.0 g/dL [facility] Comment:Testing performed by : [address] [address] Alk phos 116 40 - 130 Units/L [facility] Comment:Testing performed by : [address] [address] ALT 17 7 - 45 Units/L [facility] Comment:Testing performed by : [address] [address] AST 21 10 - 45 Units/L [facility] Comment:Testing performed by : [address] [phone] Blood specimen (specimen) 12/06/2020 3:09 PM CDT 12/06/2020 3:10 PM CDT us Eren Cr MD LAB BLOOD ORDERABLES Final Re sult [facility] Department [place] [address] * (ABNORMAL) CBC with auto differential (12/06/2020 3:09 PM CDT) WBC 5.2 3.8 - 9.8 K/cumm [facility] Comment:Testing performed by : [address] [address] Hgb 12.0(L) 12.1 - 15.1 g/dL [facility] Comment:Testing performed by : [address] [address] Hct 35.1(L) 36.1 - 44.3 % [facility] Comment:Testing performed by : [facility], [address] [place] [phone] Plt 153 140 - 440 K/cumm [facility] Comment:Testing performed by : [address] [address] MPV 7.4 6.8 - 10.4 fL [facility] Comment:Testing performed by : [address] [address] RBC 3.74(L) 3.90 - 5.00 M/cumm [facility] Comment:Testing performed by : [facility], [address] [place] [phone] MCV 93.9 80.0 - 97.6 fL [facility] Comment:Testing performed by : [address] [address] MCH 32.1 26.7 - 33.7 pg [facility] Comment:Testing performed by : [address] [address] MCHC 34.2 32.7 - 35.5 g/dL [facility] Comment:Testing performed by : [facility], [address] [facility] [address] RDW CV 13.8 11.8 - 14.6 % [facility] Comment:Testing performed by : [facility], [address] [place] [address] NRBC abs 0.00 0.00 - 0.01 K/cumm [facility] Comment:Testing performed by : [facility], [address] [place] [phone] Blood specimen (specimen) 12/06/2020 3:09 PM CDT 12/06/2020 3:10 PM CDT Eren Cr MD LAB BLOOD ORDERABLES Final Re sult [facility] Department [place] [address] * (ABNORMAL) Chromogranin A (12/06/2020 2:55 PM CDT) Chromogranin A 789(H) <93 ng/mL [facility] Comment: Impaired renal or hepatic [...] homogeneous time-resolved immunofluorescent assay manufactured by [employer] and performed on the [employer] Kryptor Compact Plus. ? Values obtained with different assay methods or kits may be different and cannot be used interchangeably. ? Test results cannot be interpreted as absolute evidence for the presence or absence of malignant disease. Test Performed by: [place] [address] [place] [address] Control Systems Developer: Immanuel Novak M.D. Ph.D.; CLIA# [id number] Blood specimen (specimen) 12/06/2020 2:55 PM CDT 12/06/2020 8:00 PM CDT us Eren Cr MD LAB BLOOD ORDERABLES Final Re sult [facility] Department [place] [address] * CT soft tissue neck with contrast [...] are normal. The limited view of the [place] is unremarkable. The visualized portions [...] are normal. The limited view of the [place] is unremarkable. The visualized portions [...] a homogeneous time-resolved immunofluorescent assay manufactured by [employer] and performed on the [employer] Compact Plus. ? Values obtained with different assay methods or kits may be different and cannot be used interchangeably. ? Test results cannot be interpreted as absolute evidence for the presence or absence of malignant disease. Test Performed by: [place] [address] [place] [address] Control Systems Developer: Immanuel Novak M.D. Ph.D.; CLIA# [id number] Blood specimen (specimen) 11/07/2020 4:02 PM CDT 11/07/2020 5:05 PM CDT Eern Cr MD LAB BLOOD ORDERABLES Final Re sult [facility] Department [place] [address] * (ABNORMAL) Comprehensive metabolic panel (11/07/2020 4:02 PM CDT) Sodium 141 135 - 145 mmol/L [facility] Comment:Testing performed by : [facility], [address] [place] [phone] Potassium, pl 3.8 3.3 - 4.9 mmol/L [facility] Comment:Testing performed by : [facility], [address] [place] [phone] Chloride 104 97 - 110 mmol/L [facility] Comment:Testing performed by : [facility], [address] [place] [address] CO2 28 22 - 32 mmol/L [facility] Comment:Testing performed by : [facility], [address] [place] [phone] Anion gap 9 2 - 15 mmol/L [facility] Comment:Testing performed by : [facility], [address] [place] [phone] BUN 13 8 - 25 mg/dL [facility] Comment:Testing performed by : [facility], [address] [place] [phone] Creatinine 0.97 0.60 - 1.10 mg/dL [facility] Comment:Testing performed by : [facility], [address] [place] [phone] Glucose 101 70 - 199 mg/dL CERNER [...] revised 2017. Testing performed by: [facility], [address] [place] [phone] Calcium 10.9(H) 8.5 - 10.3 mg/dL [facility] Comment:Testing performed by : [facility], [address] [place] [phone] Bilirubin, total 0.5 0.1 - 1.2 mg/dL [facility] Comment:Testing performed by : [facility], [address] [place] [phone] Protein, pl 7.0 6.5 - 8.5 g/dL [facility] Comment:Testing performed by : [facility], [address] [place] [phone] Albumin 4.6 3.5 - 5.0 g/dL [facility] Comment:Testing performed by : [facility], [address] [place] [phone] Alk phos 93 40 - 130 Units/L [facility] Comment:Testing performed by : [facility], [address] [place] [phone] ALT 18 7 - 45 Units/L [facility] Comment:Testing performed by : [facility], [address] [place] [phone] AST 22 10 - 45 Units/L [facility] Comment:Testing performed by : [facility], [address] [place] [phone] Blood specimen (specimen) 11/07/2020 4:02 PM CDT 11/07/2020 4:04 PM CDT us Eren Cr MD LAB BLOOD ORDERABLES Final Re sult [facility] Department [place] [address] * (ABNORMAL) CBC with auto differential (11/07/2020 4:02 PM CDT) WBC 5.0 3.8 - 9.8 K/cumm [facility] Comment:Testing performed by : [facility], [address] [place] [phone] Hgb 13.2 12.1 - 15.1 g/dL [facility] Comment:Testing performed by : [facility], [address] [place] [address] Hct 38.3 36.1 - 44.3 % [facility] Comment:Testing performed by : [facility], [address] [place] [phone] Plt 136(L) 140 - 440 K/cumm [facility] Comment:Testing performed by : [facility], [address] [place], [place] [phone] MPV 7.7 6.8 - 10.4 fL [facility] Comment:Testing performed by : [place] [address] RBC 4.13 3.90 - 5.00 M/cumm [facility] Comment:Testing performed by : [place] [address] MCV 92.8 80.0 - 97.6 fL [facility] Comment:Testing performed by : [facility], [address] [place], [place] [phone] MCH 32.0 26.7 - 33.7 pg [facility] Comment:Testing performed by : [place] [phone] MCHC 34.5 32.7 - 35.5 g/dL [facility] Comment:Testing performed by : [place] [phone] RDW CV 13.5 11.8 - 14.6 % [facility] Comment:Testing performed by : [facility], [address] [place] [phone] NRBC abs 0.00 0.00 - 0.01 K/cumm [facility] Comment:Testing performed by : [place] [phone] Blood specimen (specimen) 11/07/2020 4:02 PM CDT 11/07/2020 4:04 PM CDT us Eren Cr MD LAB BLOOD ORDERABLES Final Re sult [facility] Department [place] [address] * (ABNORMAL) Chromogranin A (10/10/2020 4:02 PM [...] a homogeneous time-resolved immunofluorescent assay manufactured by [employer] and performed on the [employer] Kryptor Compact Plus. ? Values obtained with different assay methods or kits may be different and cannot be used interchangeably. ? Test results cannot be interpreted as absolute evidence for the presence or absence of malignant disease. Test Performed by: [place] [id number] Control Systems Developer: Immanuel Novak M.D. Ph.D.; CLIA# [id number] Blood specimen (specimen) 10/10/2020 4:02 PM CDT 10/10/2020 4:45 PM CDT us Eren Cr MD LAB BLOOD ORDERABLES Final Re sult [facility] Department of Laboratories [place], [place] [address] * (ABNORMAL) Comprehensive metabolic panel (10/10/2020 4:02 PM CDT) Sodium 140 135 - 145 mmol/L [facility] Comment:Testing performed by : [facility], [address] [place] [phone] Potassium, pl 4.2 3.3 - 4.9 mmol/L [facility] Comment:Testing performed by : [facility], [address] [place] [phone] Chloride 102 97 - 110 mmol/L [facility] Comment:Testing performed by : [facility], [address] [place] [phone] CO2 31 22 - 32 mmol/L [facility] Comment:Testing performed by : [facility], [address] [place] [address] Anion gap 7 2 - 15 mmol/L [facility] Comment:Testing performed by : [facility], [address] [place] [phone] BUN 15 8 - 25 mg/dL [facility] Comment:Testing performed by : [facility], [address] [place] [address] Creatinine 1.03 0.60 - 1.10 mg/dL [facility] Comment:Testing performed by : [facility], [address] [place] [phone] Glucose 122 70 - 199 mg/dL CERNER [...] revised 2017. Testing performed by: [facility], [address] [place] [phone] Calcium 11.0(H) 8.5 - 10.3 mg/dL [facility] Comment:Testing performed by : [facility], [address] [place] [phone] Bilirubin, total 0.4 0.1 - 1.2 mg/dL [facility] Comment:Testing performed by : [facility], [address] [place] [phone] Protein, pl 7.3 6.5 - 8.5 g/dL [facility] Comment:Testing performed by : [facility], [address] [place] [phone] Albumin 4.5 3.5 - 5.0 g/dL [facility] Comment:Testing performed by : [facility], [address] [place] [phone] Alk phos 83 40 - 130 Units/L [facility] Comment:Testing performed by : [facility], [address] [place] [phone] ALT 17 7 - 45 Units/L [facility] Comment:Testing performed by : [facility], [address] [place] [phone] AST 22 10 - 45 Units/L [facility] Comment:Testing performed by : [facility], [address] [place] [phone] Blood specimen (specimen) 10/10/2020 4:02 PM CDT 10/10/2020 4:05 PM CDT us Eren Cr MD LAB BLOOD ORDERABLES Final Re sult [facility] Department [place] [address] * (ABNORMAL) CBC with auto differential (10/10/2020 4:02 PM CDT) WBC 4.5 3.8 - 9.8 K/cumm [facility] Comment:Testing performed by : [facility], [address] [place] [phone] Hgb 13.0 12.1 - 15.1 g/dL [facility] Comment:Testing performed by : [facility], [address] [place] [address] Hct 38.0 36.1 - 44.3 % [facility] Comment:Testing performed by : [facility], [address] [place] [phone] Plt 130(L) 140 - 440 K/cumm [facility] Comment:Testing performed by : [facility], [address] [place] [phone] MPV 7.3 6.8 - 10.4 fL [facility] Comment:Testing performed by : [address] [address] RBC 4.11 3.90 - 5.00 M/cumm [facility] Comment:Testing performed by : [facility], [address] [place] [address] MCV 92.3 80.0 - 97.6 fL [facility] Comment:Testing performed by : [facility], [address] [place] [address] MCH 31.6 26.7 - 33.7 pg [facility] Comment:Testing performed by : [facility], [address] [place] [address] MCHC 34.2 32.7 - 35.5 g/dL [facility] Comment:Testing performed by : [facility], [address] [place] [address] RDW CV 13.5 11.8 - 14.6 % [facility] Comment:Testing performed by : [facility], [address] [place] [address] NRBC abs 0.00 0.00 - 0.01 K/cumm [facility] Comment:Testing performed by : [facility], [address] [place] [phone] Blood specimen (specimen) 10/10/2020 4:02 PM CDT 10/10/2020 4:05 PM CDT us Eren Cr MD LAB BLOOD ORDERABLES Final Re sult [facility] Department [place] [address] * (ABNORMAL) Chromogranin A (09/12/2020 4:06 PM PRIVACY DIRECTOR) Chromogranin A 407(H) <93 ng/mL [facility] [...] a homogeneous time-resolved immunofluorescent assay manufactured by [employer] and performed on the [employer] Krypt[employer] Compact Plus. ? Values obtained with different assay methods or kits may be different and cannot be used interchangeably. ? Test results cannot be interpreted as absolute evidence for the presence or absence of malignant disease. Test Performed by: [facility] [address] [place] [address] Control Systems Developer: Immanuel Novak M.D. Ph.D.; CLIA# [id number] Blood specimen (specimen) 09/12/2020 4:06 PM PRIVACY DIRECTOR 09/12/2020 5:02 PM PRIVACY DIRECTOR us Eren rC MD LAB BLOOD ORDERABLES Final Re sult [facility] Department [place] [address] * (ABNORMAL) Comprehensive metabolic panel (09/12/2020 4:06 PM PRIVACY DIRECTOR) Sodium 141 135 - 145 mmol/L [facility] Comment:Testing performed by : [facility], [address] [place] [phone] Potassium, pl 4.2 3.3 - 4.9 mmol/L [facility] Comment:Testing performed by : [facility], [address] [place] [phone] Chloride 104 97 - 110 mmol/L [facility] Comment:Testing performed by : [facility], [address] [place] [phone] CO2 32 22 - 32 mmol/L [facility] Comment:Testing performed by : [facility], [address] [place] [phone] Anion gap 5 2 - 15 mmol/L [facility] Comment:Testing performed by : [facility], [address] [place] [phone] BUN 15 8 - 25 mg/dL [facility] Comment:Testing performed by : [facility], [address] [place] [phone] Creatinine 0.88 0.60 - 1.10 mg/dL [facility] Comment:Testing performed by : [facility], [address] [place] [address] Glucose 98 70 - 199 mg/dL [facility] [...] was last revised 2017. Testing performed by: [place] [id number] Calcium 10.8(H) 8.5 - 10.3 mg/dL [facility] Comment:Testing performed by : [address] [address] Bilirubin, total 0.3 0.1 - 1.2 mg/dL [facility] Comment:Testing performed by : [address] [address] Protein, pl 6.8 6.5 - 8.5 g/dL [facility] Comment:Testing performed by : [address] [address] Albumin 4.3 3.5 - 5.0 g/dL [facility] Comment:Testing performed by : [address] [address] Alk phos 82 40 - 130 Units/L [facility] Comment:Testing performed by : [address] [address] ALT 16 7 - 45 Units/L [facility] Comment:Testing performed by : [address] [address] AST 20 10 - 45 Units/L [facility] Comment:Testing performed by : [address] [phone] Blood specimen (specimen) 09/12/2020 4:06 PM PRIVACY DIRECTOR 09/12/2020 4:09 PM PRIVACY DIRECTOR us Eren Cr MD LAB BLOOD ORDERABLES Final Re sult [facility] Department [place] [address] * (ABNORMAL) CBC with auto differential (09/12/2020 4:06 PM PRIVACY DIRECTOR) WBC 4.8 3.8 - 9.8 K/cumm [facility] Comment:Testing performed by : [address] [address] Hgb 12.7 12.1 - 15.1 g/dL [facility] Comment:Testing performed by : [address] [address] Hct 37.8 36.1 - 44.3 % [facility] Comment:Testing performed by : [facility], [address] [place] [phone] Plt 117(L) 140 - 440 K/cumm [facility] Comment:Testing performed by : [address] [phone] MPV 7.3 6.8 - 10.4 fL [facility] Comment:Testing performed by : [address] [address] RBC 4.06 3.90 - 5.00 M/cumm [facility] Comment:Testing performed by : [facility], [address] [place] [phone] MCV 93.2 80.0 - 97.6 fL [facility] Comment:Testing performed by : [address] [address] MCH 31.3 26.7 - 33.7 pg [facility] Comment:Testing performed by : [address] [address] MCHC 33.6 32.7 - 35.5 g/dL [facility] Comment:Testing performed by : [facility], [address] [facility] [address] RDW CV 13.3 11.8 - 14.6 % [facility] Comment:Testing performed by : [facility], [address] [place] [phone] NRBC abs 0.00 0.00 - 0.01 K/cumm [facility] Comment:Testing performed by : [facility], [address] [place] [phone] Blood specimen (specimen) 09/12/2020 4:06 PM PRIVACY DIRECTOR 09/12/2020 4:09 PM PRIVACY DIRECTOR us Eren Cr MD LAB BLOOD ORDERABLES Final Re sult [facility] Department [place] [address] * CT head with contrast (08/15/2020 6:11 PM PRIVACY DIRECTOR) Anatomical Region Laterality Modality Head and Neck N/A Computed Tomogra phy 08/15/2020 7:39 PM PRIVACY DIRECTOR Impressions 08/15/2020 10:32 PM PRIVACY DIRECTOR 1. No acute intracranial abnormality on this contrast enhanced CT of the head. 2. No CT evidence of intracranial malignancy. Dictated by: Edwin Darnell M.D. The radiology attending physician has personally reviewed this study, and had reviewed and/or edited this written report and agrees with it. Electronically signed by: Benja Heaton M.D. Narrative 08/15/2020 10:32 PM PRIVACY DIRECTOR EXAMINATION: Head CT with contrast HISTORY: 69-year-old [...] by: Benja Heaton M.D. Eren Cr MD [facility] [place] PROCEDURES Final Resul t documented in [...] 021 documented in this encounter Care Teams Sawsmith Relationship Specialty Start Date End Date Julio César Briseno MD PCP - General 10/01/16 Eren Cr MD Referring Physician Medical Oncology 11/25/18 Yohana Bowen MD Radiation Oncologist Radiation Oncology 11/25/18 documented as of this encounter
--- OUTSIDE RECORDS SUMMARY | 2024-06-26 02:14 | XMS_ITS | Encounter Summary ---
Author Organization [facility] Address [address] [place] [address] Phone Care Team Providers Care Roentgenology Teacher Name Role Phone Julio César Briseno MD Primary Care Provider [phone] Eren Cr MD Unavailable [phone] Yohana Bowen MD Unavailable Reason for Visit * Reason Comments Ostomy Care Encounter Details Date Type Department Care Team (Late st Contact Info) Description 06/23/2020 3:15 PM PSYCHIATRIC SOCIAL WORKER SUPERVISOR Office Visit [facility] Surgery [address] [facility] 2nd Floor [address] [place] [address] Greyson Reeves MD [address] [facility] [phone] [place] [address] Colostomy complication, unspecified (CMS/HCC) (Primary Dx) Social History Tobacco Use Types Packs/Day Years Used Date Smoking Tobacco: Never Smokeless Tobacco: Never Alcohol Use Standard Drinks/Week Comments Yes 1 (1 standard drink = 0.6 oz pur e alcohol) Comments No Sex and Gender Information Value Date Recorded Sex Assigned at Not on file Legal Sex Female 2:41 PM PSYCHIATRIC SOCIAL WORKER SUPERVISOR Gender Identity Not on file Sexual Orientation Straight 02/19/2021 9: 29 AM CDT Occupation Industry Job Start Date Job End Date retired Not on file Not on file Not on file documented as of this encounter Last Filed Vital Signs Vital Sign Reading Time Taken Comments Blood Pressure 169/73 06/23/2020 2:55 PM PSYCHIATRIC SOCIAL WORKER SUPERVISOR Pulse 74 06/23/2020 2:55 PM PSYCHIATRIC SOCIAL WORKER SUPERVISOR Temperature 36.1 ??C (97 ??F) 06/23/2020 2:55 PM PSYCHIATRIC SOCIAL WORKER SUPERVISOR Respiratory Rate - - Oxygen Saturation 96% 06/23/2020 2:55 PM PSYCHIATRIC SOCIAL WORKER SUPERVISOR Inhaled Oxygen Concentration - - Weight 83.2 kg (183 lb 8 oz) 06/23/2020 2:55 PM PSYCHIATRIC SOCIAL WORKER SUPERVISOR Height 160 cm (5' 3 ) 06/23/2020 2:55 PM PSYCHIATRIC SOCIAL WORKER SUPERVISOR Body Mass Index 32.51 06/23/2020 2:55 PM PSYCHIATRIC SOCIAL WORKER SUPERVISOR documented in this encounter Progress Notes [...] 4 gram packet clotrimazole-betamethasone (LOTRISONE) cream coenzyme [id number] (CO Q-10, WITH VIT E,) 100-5 [...] p.r.n. Greyson Reeves MD 06/23/2020 3:18 PM HIATRIC SOCIAL WORKER SUPERVISOR documented in this encounter Plan of Treatment Not on file documented as of this encounter Visit Diagnoses Diagnosis Colostomy complication, unspecified (HCC)- Primary documented in this encounter Care Teams Roentgenology Teacher Relationship Specialty Start Date End Date Julio César Briseno MD PCP - General 10/01/16 Eren Cr MD Referring Physician Medical Oncology 11/25/18 Yohana Bowen MD Radiation Oncologist Radiation Oncology 11/25/18 documented as of this encounter
--- OUTSIDE RECORDS SUMMARY | 2024-06-26 02:14 | XMS_ITS | Encounter Summary ---
Author Organization 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) Procedures CT OCTREOTIDE INJECTION, DEPOT Octreotide 28 Day Cycles - Carcinoid Eren Cr MD [address] [facility] [address] [place] [address] Phone: tel: fax: [facility] Cancer [address] [address] Phone: tel: fax: Referral ID Status Reason Start Date Expiration Date V isits Requested Visits Authorized [id number] Authorized 11/28/2017 02/05/2025 1 150 Encounter Details Date Type Department Care Team (Late st Contact Info) Description 06/06/2020 3:30 PM CONTACT CENTER REPRESENTATIVE Lab [facility] Oncology [facility] 7th [place] [address] [place] [id number] Neuroendocrine carcinoma (CMS/HCC); Malignant neoplasm metastatic to liver (CMS/HCC); Bone metastasis (CMS/HCC) Social History Tobacco Use Types Packs/Day Years Used Date Smoking Tobacco: Never Smokeless Tobacco: Never Alcohol Use Standard Drinks/Week Comments Yes 1 (1 standard drink = 0.6 oz pur e alcohol) Comments No Sex and Gender Information Value Date Recorded Sex Assigned at Not on file Legal Sex Female 2:41 PM CONTACT CENTER REPRESENTATIVE Gender Identity Not on file Sexual Orientation Straight 02/19/2021 9: 29 AM CDT Occupation Industry Job Start Date Job End Date retired Not on file Not on file Not on file documented as of this encounter Plan of Treatment Not on file documented as of this encounter Procedures Procedure Name Priority Date/Time Associated Diagnosis Comments DIFFERENTIAL AUTO Routine 06/06/2020 3:3 7 PM CONTACT CENTER REPRESENTATIVE Neuroendocrine carcinoma (CMS/HCC) Malignant neoplasm metastatic to liver (CMS/HCC) CBC WITH AUTO DIFFERENTIAL Routine 06/06/2020 3:37 PM CONTACT CENTER REPRESENTATIVE Neuroendocrine carcinoma (CMS/HCC) Malignant neoplasm metastatic to liver (CMS/HCC) PHOSPHORUS STAT 06/06/2020 3:37 PM CONTACT CENTER REPRESENTATIVE Bone metastasis (CMS/HCC) Neuroendocrine carcinoma (CMS/HCC) Malignant neoplasm metastatic to liver (CMS/HCC) COMPREHENSIVE METABOLIC PANEL STAT 06/06/2020 3:37 PM CONTACT CENTER REPRESENTATIVE Neuroendocrine carcinoma (CMS/HCC) Malignant neoplasm metastatic to liver (CMS/HCC) CHROMOGRANIN A Routine 06/06/2020 3:36 PM CONTACT CENTER REPRESENTATIVE Neuroendocrine carcinoma (CMS/HCC) Malignant neoplasm metastatic to liver (CMS/HCC) documented in this encounter Results * (ABNORMAL) Differential, auto (06/06/2020 3:37 PM CONTACT CENTER REPRESENTATIVE) Neutrophil abs 3.7 1.8 - 6.6 K/cumm [facility] Comment:Testing performed by : [facility], Critical access hospital[facility] [address] Lymphocyte abs 0.5(L) 1.2 - 3.3 K/cumm [facility] Comment:Testing performed by : [facility], [address] [place] [phone] Monocyte abs 0.6 0.2 - 1.2 K/cumm [facility] Comment:Testing performed by : [facility], [address] [place] [phone] Eosinophil abs 0.1 0.0 - 0.5 K/cumm [facility] Comment:Testing performed by : [facility], [address] [place] [phone] Basophil abs 0.0 0.0 - 0.2 K/cumm [facility] Comment:Testing performed by : [facility], [address] [place] [phone] Neutrophil pct 75.2 % [facility] Comment: Interpretive Data Percent cell count reference ranges are not reported, since discordance with absolute values may lead to misinterpretation of CBC data. Current Interpretive Data was last revised on 2017. Testing performed by: [facility], [address] [place] [phone] Lymphocyte pct 11.1 % [facility] Comment: Interpretive Data Percent cell count reference ranges are not reported, since discordance with absolute values may lead to misinterpretation of CBC data. Current Interpretive Data was last revised on 2017. Testing performed by: [facility], [address] [place] [phone] Monocyte pct 11.8 % [facility] Comment:Testing performed by : [facility], [address] [place] [phone] Eosinophil pct 1.3 % [facility] Comment:Testing performed by : [facility], [address] [place] [phone] Basophil pct 0.6 % [facility] Comment:Testing performed by : [address] [phone] Blood specimen (specimen) 06/06/2020 3:37 PM CONTACT CENTER REPRESENTATIVE 06/06/2020 3:39 PM CONTACT CENTER REPRESENTATIVE Eren Cr MD LAB BLOOD ORDERABLES Final Re sult Performing Organization Address [facility] Co de Phone Number [facility] [place] [address] * Phosphorus (06/06/2020 3:37 PM CONTACT CENTER REPRESENTATIVE) [facility] Phosphorus, pl 2.5 2.3 - 4.5 mg/dL [facility] Comment:Testing performed by : [facility], [address] [place] [phone] Blood specimen (specimen) 06/06/2020 3:37 PM CONTACT CENTER REPRESENTATIVE 06/06/2020 3:39 PM CONTACT CENTER REPRESENTATIVE Eren Cr MD LAB BLOOD ORDERABLES Final Re sult Performing Organization Address [facility] de Phone Number [facility] [place] [address] * (ABNORMAL) CBC with auto differential (06/06/2020 3:37 PM CONTACT CENTER REPRESENTATIVE) [facility] WBC 4.9 3.8 - 9.8 K/cumm [facility] Comment:Testing performed by : [facility], [address] [place] [phone] Hgb 13.6 12.1 - 15.1 g/dL [facility] Comment:Testing performed by : [facility], [address] [place] [phone] Hct 40.3 36.1 - 44.3 % [facility] Comment:Testing performed by : [facility], [address] [place] [phone] Plt 128(L) 140 - 440 K/cumm [facility]MINNIE [facility] Comment:Testing performed by : [address] [address] MPV 7.9 6.8 - 10.4 fL [facility] Comment:Testing performed by : [address] [address] RBC 4.41 3.90 - 5.00 M/cumm [facility] Comment:Testing performed by : [facility], [address] [place] [address] MCV 91.3 80.0 - 97.6 fL [facility] Comment:Testing performed by : [facility], [address] [place] [address] MCH 30.8 26.7 - 33.7 pg [facility] Comment:Testing performed by : [facility], [address] [place] [phone] MCHC 33.7 32.7 - 35.5 g/dL [facility] Comment:Testing performed by : [facility], [address] [place] [phone] RDW CV 13.6 11.8 - 14.6 % [facility] Comment:Testing performed by : [facility], [address] [place] [phone] NRBC abs 0.01 0.00 - 0.01 K/cumm [facility] Comment:Testing performed by : [facility], [address] [place] [phone] Blood specimen (specimen) 06/06/2020 3:37 PM CONTACT CENTER REPRESENTATIVE 06/06/2020 3:39 PM CONTACT CENTER REPRESENTATIVE Eren Cr MD LAB BLOOD ORDERABLES Final Re sult [facility] Department [place] [address] * (ABNORMAL) Comprehensive metabolic panel (06/06/2020 3:37 PM CONTACT CENTER REPRESENTATIVE) Sodium 139 135 - 145 mmol/L [facility] Comment:Testing performed by : [facility], [address] [place] [phone] Potassium, pl 4.0 3.3 - 4.9 mmol/L [facility] Comment: Hemolyzed; result may be falsely elevated. Testing performed by: [facility], [address] [place] [phone] Chloride 105 97 - 110 mmol/L [facility] BLACK Comment:Testing performed by : [facility], [address] [place] [phone] CO2 29 22 - 32 mmol/L [facility] Comment:Testing performed by : [facility], [address] [place] [phone] Anion gap 5 2 - 15 mmol/L [facility] Comment:Testing performed by : [facility], [address] [place] [address] BUN 11 8 - 25 mg/dL [facility] Comment:Testing performed by : [facility], [address] [place] [phone] Creatinine 0.78 0.60 - 1.10 mg/dL [facility] Comment:Testing performed by : [facility], [address] [place] [phone] Glucose 115 70 - 199 mg/dL CERNER [...] revised 2017. Testing performed by: [facility], [address] [place] [phone] Calcium 10.5(H) 8.5 - 10.3 mg/dL [facility] Comment:Testing performed by : [facility], [address] [place] [phone] Bilirubin, total 0.4 0.1 - 1.2 mg/dL [facility] Comment:Testing performed by : [address] [address] Protein, pl 7.2 6.5 - 8.5 g/dL [facility] Comment:Testing performed by : [facility], [address] [place] [phone] Albumin 4.4 3.5 - 5.0 g/dL [facility] Comment:Testing performed by : [facility], [address] [place] [phone] Alk phos 110 40 - 130 Units/L [facility] Comment:Testing performed by : [facility], [address] [facility] [phone] ALT 14 7 - 45 Units/L [facility] Comment:Testing performed by : [facility], [address] [facility] [phone] AST 23 10 - 45 Units/L [facility] Comment: Hemolyzed; result may be falsely elevated. Testing performed by: [facility], [address] [facility] [phone] Blood specimen (specimen) 06/06/2020 3:37 PM CONTACT CENTER REPRESENTATIVE 06/06/2020 3:39 PM CONTACT CENTER REPRESENTATIVE Eren Cr MD LAB BLOOD ORDERABLES Final Re sult [facility] One [facility] Department [place] [address] * (ABNORMAL) Chromogranin A (06/06/2020 3:36 PM CONTACT CENTER REPRESENTATIVE) Chromogranin A 313(H) <93 ng/mL [facility] Comment: Impaired renal or hepatic [...] absence of malignant disease. Test Performed by: [facility] - [address] [address] Molder Operator: Immanuel Novak M.D. Ph.D.; CLIA# [id number] Blood specimen (specimen) 06/06/2020 3:36 PM CONTACT CENTER REPRESENTATIVE 06/06/2020 4:32 PM CONTACT CENTER REPRESENTATIVE us Eren Cr MD LAB BLOOD ORDERABLES Final Re sult [facility] Department [place] [address] documented in this encounter Visit Diagnoses Diagnosis Neuroendocrine carcinoma (HCC) Other malignant neoplasm of unspecified site Malignant neoplasm metastatic to liver (HCC) Bone metastasis Secondary malignant neoplasm of bone and bone marrow documented in this encounter Orders Appointment Requests Count Last Ordered Date Fi rst Ordered Date ONCBCN LAB APPOINTMENT 1 06/06/2020 documented in this encounter Care Teams Research Project Coordinator Relationship Specialty Start Date End Date Julio César Briseno MD PCP - General 10/01/16 Eren Cr MD Referring Physician Medical Oncology 11/25/18 Yohana Bowen MD Radiation Oncologist Radiation Oncology 11/25/18 documented as of this encounter
--- OUTSIDE RECORDS SUMMARY | 2024-06-26 02:14 | XMS_ITS | Encounter Summary ---
Author Organization [facility] Healthcare Address [address] [place] [address] Care Team Providers Care Beck Operator Name Role Phone Julio César Briseno MD Primary Care Provider [phone] Eren Cr MD Unavailable [phone] Yohana Bowen MD Unavailable Reason for Referral * MRI/CAT/PET Scan (Routine) - Closed Specialty Diagnoses / Procedures Referred By Contac Referred To Contact Radiology Diagnoses 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) Procedures CT head with contrast Eren Cr MD [address] [place] [address] Phone: tel: fax: [facility] [address] [place] [address] Referral ID Status Reason Start Date Expiration Date Visits Re quested Visits Authorized [id number] Closed 08/15/2020 09/14/2021 1 1 SOCIAL SERVICES Reason for Visit * MRI/CAT/PET Scan (Routine) - Closed Specialty Diagnoses / Procedures Referred By Contac t Referred To Contact Radiology Diagnoses 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) Procedures CT head with contrast Eren Cr MD [address] [facility] [address] [place] [address] Phone: tel: fax: [facility] [address] [facility] [address] Referral ID Status Reason Start Date Expiration Date Visits Re quested Visits Authorized [id number] Closed 08/15/2020 09/14/2021 1 1 Encounter Details Date Type Department Care Team (Latest Contact Info) Description 08/15/2020 5:00 PM RN SOCIAL SERVICES - 08/15/2020 11:59 PM RN SOCIAL SERVICES Hospital Encounter [facility] [address] [place] [address] Eren Cr MD [address] [facility] [address] [place] [address] Bone metastasis (CMS/HCC); Neuroendocrine carcinoma (CMS/HCC); Malignant [...] file Legal Sex Female 2:41 PM RN SOCIAL SERVICES Gender Identity Not on file Sexual [...] capsuleIndications :supplement Take 1 tablet by mouth property management supervisor before breakfast 07/04/2016 4 cholecalciferol (VITAMIN D-3) 2,000 unit capsule Take 1 capsule (2,000 Units total) by mouth daily 30 capsule 2 04/25/2019 3 cholestyramine (QUESTRAN) 4 gram packet Take 1 packet by mouth 3 (three) times a day with meals 270 packet 3 09/04/2019 2 clotrimazole-betam ethasone (LOTRISONE) cream Apply 1 Application topically daily as needed (rash) 4 coenzyme [id number] E 100-5 mg-unit capsuleIndications :supplement Take 1 tablet by mouth property management supervisor before breakfast 4 denosumab (XGEVA) 120 [...] Read Routine (OP Routine) 08/15/2020 6:11 PM RN SOCIAL SERVICES Bone metastasis (CMS/HCC) Neuroendocrine carcinoma (CMS/HCC) Malignant neoplasm metastatic to liver (CMS/HCC) documented in this encounter Results * CT head with contrast (08/15/2020 6:11 PM RN SOCIAL SERVICES) Anatomical Region Laterality Modality Head and Neck N/A Computed Tomogra phy 08/15/2020 7:39 PM RN SOCIAL SERVICES Impressions 08/15/2020 10:32 PM RN SOCIAL SERVICES 1. No acute intracranial abnormality on this contrast enhanced CT of the head. 2. No CT evidence of intracranial malignancy. Dictated by: Edwin Darnell M.D. The radiology attending physician has personally reviewed this study, and had reviewed and/or edited this written report and agrees with it. Electronically signed by: Benja Heaton M.D. Narrative 08/15/2020 10:32 PM RN SOCIAL SERVICES EXAMINATION: Head CT with contrast HISTORY: 69-year-old [...] For 1 dose Given 08/15/2020 6:02 PM RN SOCIAL SERVICES 75 mL documented in this encounter Orders Medications Ordered That Brett ht Not Have Been Administered Count Last Ordered Date First Ordered Date ioversoL (OPTIRAY 350) syrin ge syringe 75 mL 2 08/15/2020 documented in this encounter Care Teams Beck Operator Relationship Specialty Start Date End Date Julio César Briseno MD PCP - General 10/01/16 Eren Cr MD Referring Physician Medical Oncology 11/25/18 Yohana Bowen MD Radiation Oncologist Radiation Oncology 11/25/18 documented as of this encounter
--- OUTSIDE RECORDS SUMMARY | 2024-06-26 02:14 | XMS_ITS | Encounter Summary ---
Author Organization [facility] Address [address] [place] [address] Phone Care Team Providers Care Medical Lab Technologist Name Role Phone Julio César Briseno MD Primary Care Provider [phone] Eren Cr MD Unavailable [phone] Yohana Bowen MD Unavailable Reason for Visit * Reason Onset Date Comments COVID screening 05/23/2020 Encounter Details Date Type Department Care Team (Late st Contact Info) Description 05/23/[address] [facility] Surgery [address] [facility] 2nd Floor [address] [place] [address] Delfina Galloway, ISABELLA COVID screening Social History Tobacco Use Types Packs/Day Years Used Date Smoking Tobacco: Never Smokeless Tobacco: Never Alcohol Use Standard Drinks/Week Comments Yes 1 (1 standard drink = 0.6 oz pur e alcohol) Comments No Sex and Gender Information Value Date Recorded Sex Assigned at Not on file Legal Sex Female 2:41 PM BUSINESS PROCESS MODELER Gender Identity Not on file Sexual Orientation Straight 02/19/2021 9: 29 AM CDT Occupation Industry Job Start Date Job End Date retired Not on file Not on file Not on file documented as of this encounter Miscellaneous Notes * Telephone Encounter - Delfina Galloway RMA - 05/23/2020 4:00 PM BUSINESS PROCESS MODELER Patient completed COVID19 survey and verbally covered patient/visitor policy. Exposed to COVID positive person on 05/13. Negative test results came back today. Asked she bring an extra appliance. NESS PROCESS MODELER documented in this encounter Plan of Treatment Not on file documented as of this encounter Visit Diagnoses Not on filedocumented in this encounter Care Teams Medical Lab Technologist Relationship Specialty Start Date End Date Julio César Briseno MD PCP - General 10/01/16 Eren Cr MD Referring Physician Medical Oncology 11/25/18 Yohana Bowen MD Radiation Oncologist Radiation Oncology 11/25/18 documented as of this encounter
--- OUTSIDE RECORDS SUMMARY | 2024-06-26 02:15 | XMS_ITS | Encounter Summary ---
Author Organization [facility] Address [address] [place] [address] Phone Care Team Providers Care Balloon Sander Name Role Phone Julio César Briseno MD Primary Care Provider [phone] Eren Lund MD Unavailable [phone] Yohana Bowen MD Unavailable Reason for Visit * Episode Based Medications (Routine) - Authorized Specialty Diagnoses / Procedures Referred By Evelyne t Referred To Contact Oncology Diagnoses Neuroendocrine carcinoma (HCC) Malignant neoplasm metastatic to liver (HCC) Procedures [place] OCTREOTIDE INJECTION, DEPOT Octreotide 28 Day Cycles - Carcinoid Eren Lund MD [address] [facility] [address] [place] [address] Phone: tel: fax: [facility] [address] [address] Phone: tel: fax: Referral ID Status Reason Start Date Expiration Date V isits Requested Visits Authorized [id number] Authorized 11/28/2017 02/05/2025 1 150 Encounter Details Date Type Department Care Team (Late st Contact Info) Description 05/09/2020 4:00 PM MANAGER NIGHT Infusion [facility] [facility] 7th [place] [address] Neoplasm of skin (Primary Dx); Neuroendocrine carcinoma [...] file Legal Sex Female 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 NIGHT Gender Identity Not on file Sexual Orientation Straight 02/19/2021 9: 29 AM CDT Occupation Industry Job Start Date Job End Date retired Not on file Not on file Not on file documented as of this encounter Nursing Notes * Batsheva Santizo RN - 05/09/2020 4:00 PM CST Pt tolerated injections well. Aware of next appts. Discharged in stable condition. GER NIGHT documented in this encounter Plan of Treatment Not on file documented as of this encounter Procedures Procedure Name Priority Date/Time Associated Diagnosis Comments SURGICAL PATHOLOGY Routine 05/06/2020 12 :00 AM CDT Neoplasm of skin documented in this encounter Results * Surgical pathology (05/06/2020 12:00 AM CDT) Tissue 05/06/2020 05/09/2020 3:2 4 AM MANAGER NIGHT [facility] - 05/10/2020 12:39 PM MANAGER NIGHT EPIC results best viewed via link to PDF [facility] [address] [place] [address] Ave[address] ??[address], [place] [address] ?[email or web address] [email or web address] REPORT Patient Information: PATIENT NAME: ??VIVODLA. ? SEX: ??F ? : ??[id number] (Age: 69) ? Specimen Information: COLLECTED: ??05/06/2020 ? RECEIVED: ??05/09/2020 ? REPORTED: ??05/10/2020 ? Submitting Physician Information: Po Newberry M.D. [place], [address] [place], [place] ??[address], ? DERMATOPATHOLOGY REPORT RESULTS ?? DIAGNOSIS: A. [...] in-situ hybridization tests were determined by the [facility] in ongoing quality supervisor and in compliance with regulations drawn from the Clinical Laboratory Improvement Act of 1988 (CLIA '88). These tests may rely on the use of analyte specific reagents that are subject to specific labeling requirements by the [place] FDA, and may only be performed in a facility that is certified by the [facility] as a high-complexity laboratory under CLIA '88. ??These tests are used for clinical purposes and are not investigational. ??For lab developed tests, the validation has been reviewed; the performance is considered acceptable for patient testing. Po Newberry MD PhD LAB PATHOLOGY OR DERABLES Final Result [facility] [address] [place] [id number] documented in this encounter Visit Diagnoses [...] metastasis,Neuro-endocrine carcinoma (HCC) Given 05/09/2020 5:09 PM MANAGER NIGHT 120 mg Left Lower Abdomen octreotide LAR (SandoSTATIN LAR) extended release intramuscular injection 30 mg 30 mg, intramuscular, Once, On Sat05/09/20 at 1730, For 1 dose, Refrigerate. For IM intragluteal administration only- alternate gluteal sites. Shake.Indications:Malignan t neoplasm metastatic to liver (HCC),Neuroendocrine carcinoma (HCC) Given 05/09/2020 5:34 PM MANAGER NIGHT 30 mg Right Dorsogluteal/Butto ck documented in this encounter Orders Nursing Count Last Ordered Date First Orde red Date ONCBCN NURSING COMMUNICATION [id number] 1 1 07/09/2019 PHYSICIAN COMMUNICATION ORDER 1 05/09/2020 Appointment Requests Count Last Ordered Date Fi rst Ordered Date ONCBCN INJECTION APPOINTMENT REQUEST 1 08/2019 documented in this encounter Care Teams Balloon Sander Relationship Specialty Start Date End Date Julio César Briseno MD PCP - General 10/01/16 Eren Lund MD Referring Physician Medical Oncology 11/25/18 Yohana Bowen MD Radiation Oncologist Radiation Oncology 11/25/18 documented as of this encounter
--- OUTSIDE RECORDS SUMMARY | 2024-06-26 02:15 | XMS_ITS | Encounter Summary ---
Author Organization [facility] Address [address] [place] [address] Phone Care Team Providers Care Hydrator Name Role Phone Julio César Briseno MD Primary Care Provider [phone] Eren Cr MD Unavailable Yohana Bowen MD Unavailable Reason for Referral * Diagnostic Imaging (Routine) - Closed Specialty Diagnoses / Procedures Referred By Evelyne bowman Referred To Contact Diagnoses Neuroendocrine carcinoma (HCC) Bone metastasis Procedures XR Humerus Left 2 or More Views Sabrina Willard NP [address] [place] [address] Phone: tel: fax: [address] [address] Referral ID Status Reason Start Date Expiration Date Visits Re quested Visits Authorized [id number] Closed 02/15/2020 03/16/2021 1 1 * MRI/CAT/PET Scan (Routine) - Closed Specialty Diagnoses / Procedures Referred By Contac t Referred To Contact Radiology Diagnoses Neuroendocrine carcinoma (HCC) Procedures CT soft tissue neck with contrast Sabrina Willard NP [address] [place] [address] Phone: tel: fax: [address] [address] Referral ID Status Reason Start Date Expiration Date Visits Re quested Visits Authorized [id number] Closed 02/15/2020 03/16/2021 1 1 Reason for Visit * Episode Based Medications (Routine) - Authorized Specialty Diagnoses / Procedures Referred By Evelyne t Referred To Contact Oncology Diagnoses 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) Procedures [place] OCTREOTIDE INJECTION, DEPOT Octreotide 28 Day Cycles - Carcinoid Eren Cr MD [address] [facility] [address] [facility] [place] [address] Phone: tel: fax: [address] [address] Phone: tel: fax: Referral ID Status Reason Start Date Expiration Date V isits Requested Visits Authorized [id number] Authorized 11/28/2017 02/05/2025 1 150 Encounter Details Date Type Department Care Team (Late st Contact Info) Description 02/15/2020 2:30 PM CDT Office Visit [facility] Oncology [facility] Advanced Medicine 7th [place] [address] [place] [address] Eren Cr MD [address] [facility] [address] [place] [address] Neuroendocrine carcinoma (CMS/HCC) (Primary Dx); Bone metastasis [...] on file Legal Sex Female 2:41 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 Greyson Reeves. Biopsy revealed [...] of worry. She wants to drive to [place] with her daughter so she can visit [...] obtained. The study was interpreted on the NWIX workstation. Scanned area: skull vertex to the [...] Offered to refer to counseling services at [facility]. She would like to try exercise first and will call us if she feels the need for a referral. Continue Cymbalta as ordered from another provider. We spent 30 minutes today reviewing everything and creating plan of care face to face. Sabrina Willard NP Division of Medical Oncology Workgroup Leader completed by using M*Modal Fluency Direct speaking software, therefore, transcriptionvariances may occur. Cosigned by Eren Cr Jr., MD at 02/16/2020 3:51 PM CDT documented in this encounter Plan of Treatment Not on file documented as of this encounter Results * (ABNORMAL) Chromogranin A (05/09/2020 2:30 PM ROSIN BARREL FILLER) Pathologist [facility] Chromogranin A 344(H) <93 ng/mL [facility] [...] absence of malignant disease. Test Performed by: [place] [address] Housekeeper Child Care: Immanuel Novak M.D. Ph.D.; CLIA# [id number] Blood specimen (specimen) 05/09/2020 2:30 PM ROSIN BARREL FILLER 05/09/2020 6:38 PM ROSIN BARREL FILLER Sabrina Willrad NP LAB BLOOD ORDERABLES Final R esult [facility] Department of Laboratories [place], [place] [id number] * (ABNORMAL) Comprehensive metabolic panel (05/09/2020 2:30 PM ROSIN BARREL FILLER) Pathologist [facility] Sodium 142 135 - 145 mmol/L [facility] Comment:Testing performed by : [facility], [address] [facility] [address] Potassium, pl 4.3 3.3 - 4.9 mmol/L [facility]ACK Comment:Testing performed by : [facility], [address] [facility] [address] Chloride 108 97 - 110 mmol/L [facility] Comment:Testing performed by : [facility], [facility] [address] CO2 28 22 - 32 mmol/L [facility] BLACK Comment:Testing performed by : [facility], [address] [place] [phone] Anion gap 6 2 - 15 mmol/L CERNER BJ Comment:Testing performed by : [facility], [address] [place] [phone] BUN 12 8 - 25 mg/dL CERNER BJ Comment:Testing performed by : [facility], [address] [place] [phone] Creatinine 0.82 0.60 - 1.10 mg/dL CERNER BJ Comment:Testing performed by : [facility], [address] [place] [phone] Glucose 121 70 - 199 mg/dL CERNER [...] last revised 2017. Testing performed by: [facility], [address] [place] [phone] Calcium 11.1(H) 8.5 - 10.3 mg/dL C[facility]ER BJ Comment:Testing performed by : [facility], [address] [place] [phone] Bilirubin, total 0.4 0.1 - 1.2 mg/dL CERNER BJ Comment:Testing performed by : [facility], [address] [place] [phone] Protein, pl 7.2 6.5 - 8.5 g/dL C[facility]ER BJ Comment:Testing performed by : [facility], [address] [place] [phone] Albumin 4.4 3.5 - 5.0 g/dL CERNER BJ Comment:Testing performed by : [facility], [address] [place] [phone] Alk phos 105 40 - 130 Units/L [facility] Comment:Testing performed by : [facility], [address] [place] [phone] ALT 17 7 - 45 Units/L [facility] Comment:Testing performed by : [facility], [address] [place] [phone] AST 22 10 - 45 Units/L [facility]ACK Comment:Testing performed by : [facility], [address] [place] [phone] Blood specimen (specimen) 05/09/2020 2:30 PM ROSIN BARREL FILLER 05/09/2020 2:32 PM ROSIN BARREL FILLER Sabrina Willard NP LAB BLOOD ORDERABLES Final R esult Performing Organization Address City/State/[facility] Co de Phone Number [facility] Department [place] [address] * (ABNORMAL) CBC with auto differential (05/09/2020 2:30 PM ROSIN BARREL FILLER) WBC 5.3 3.8 - 9.8 K/cumm [facility] BLACK Comment:Testing performed by : [facility], [address] [place] [phone] Hgb 13.6 12.1 - 15.1 g/dL [facility] BLACK Comment:Testing performed by : [address] [address] Hct 39.4 36.1 - 44.3 % [facility] Comment:Testing performed by : [facility], [address] [place] [phone] Plt 136(L) 140 - 440 K/cumm [facility] BLACK Comment:Testing performed by : [address] [address] MPV 7.5 6.8 - 10.4 fL [facility] BLACK Comment:Testing performed by : [address] [address] RBC 4.26 3.90 - 5.00 M/cumm [facility] BLACK Comment:Testing performed by : [facility], [address] [place] [address] MCV 92.5 80.0 - 97.6 fL [facility]ACK Comment:Testing performed by : [facility], [address] [place] [address] MCH 31.9 26.7 - 33.7 pg [facility] BLACK Comment:Testing performed by : [facility], [address] [place] [address] MCHC 34.5 32.7 - 35.5 g/dL [facility] BLACK Comment:Testing performed by : [facility], [address] [place] [phone] RDW CV 13.4 11.8 - 14.6 % [facility] BLACK Comment:Testing performed by : [facility], [address] [place] [phone] NRBC abs 0.01 0.00 - 0.01 K/cumm [facility] Comment:Testing performed by : [facility], [address] [place] [phone] Blood specimen (specimen) 05/09/2020 2:30 PM ROSIN BARREL FILLER 05/09/2020 2:32 PM ROSIN BARREL FILLER Sabrina Willard NP LAB BLOOD ORDERABLES Final R esult Performing Organization Address City/State/[facility] Co de Phone Number [facility] Department [place] [address] * CT soft tissue neck with contrast [...] are normal. The limited view of the [place] is unremarkable. The visualized portions [...] are normal. The limited view of the [place] is unremarkable. The visualized portions [...] CERNER BJ Comment:Testing performed by : [facility], [address] [place] [phone] Potassium, pl 4.1 3.3 - 4.9 mmol/L CERNER BJ Comment:Testing performed by : [facility], [address] [place] [phone] Chloride 107 97 - 110 mmol/L C[facility]ER BJ Comment:Testing performed by : [facility], [address] [place] [phone] CO2 29 22 - 32 mmol/L C[facility] BJ Comment:Testing performed by : [facility], [address] [place] [phone] Anion gap 7 2 - 15 mmol/L C[facility] BJ Comment:Testing performed by : [address] [address] BUN 12 8 - 25 mg/dL C[facility] BJ Comment:Testing performed by : [facility], [address] [place] [phone] Creatinine 0.79 0.60 - 1.10 mg/dL CERNER BJ Comment:Testing performed by : [address] [address] Glucose 131 70 - 199 mg/dL CERNER [...] last revised 2017. Testing performed by: [facility], [address] [place] [phone] Calcium 10.8(H) 8.5 - 10.3 mg/dL [facility] Comment:Testing performed by : [facility], [address] [place] [phone] Bilirubin, total 0.3 0.1 - 1.2 mg/dL [facility] Comment:Testing performed by : [facility], [address] [place] [phone] Protein, pl 6.9 6.5 - 8.5 g/dL [facility] Comment:Testing performed by : [address] [address] Albumin 4.5 3.5 - 5.0 g/dL [facility] Comment:Testing performed by : [facility], [address] [place] [phone] Alk phos 90 40 - 130 Units/L [facility] Comment:Testing performed by : [facility], [address] [place] [phone] ALT 16 7 - 45 Units/L [facility] Comment:Testing performed by : [address] [address] AST 21 10 - 45 Units/L [facility] Comment:Testing performed by : [facility], [address] [place] [phone] Blood specimen (specimen) 04/11/2020 3:49 PM CDT 04/11/2020 3:50 PM CDT us Sabrina Willard NP LAB BLOOD ORDERABLES Final R esult [facility] Department [place] [address] * (ABNORMAL) CBC with auto differential (04/11/2020 3:49 PM CDT) WBC 4.0 3.8 - 9.8 K/cumm C[facility] BJ Comment:Testing performed by : [facility], [address] [place], [place] [phone] Hgb 12.7 12.1 - 15.1 g/dL CERNER BJ Comment:Testing performed by : [facility], [address] [place], [place] [phone] Hct 37.0 36.1 - 44.3 % CERNER BJ Comment:Testing performed by : [place] [phone] Plt 121(L) 140 - 440 K/cumm CERNER BJ Comment:Testing performed by : [place] [id number] MPV 7.2 6.8 - 10.4 fL CERNER BJ Comment:Testing performed by : [place] [id number] RBC 3.98 3.90 - 5.00 M/cumm C[facility]ER BJ Comment:Testing performed by : [place] [id number] MCV 93.0 80.0 - 97.6 fL CERNER BJ Comment:Testing performed by : [place] [id number] MCH 31.9 26.7 - 33.7 pg CERNER BJ Comment:Testing performed by : [place] [id number] MCHC 34.4 32.7 - 35.5 g/dL CERNER BJ Comment:Testing performed by : [place] [id number] RDW CV 13.5 11.8 - 14.6 % CERNER BJ Comment:Testing performed by : [place] [id number] NRBC abs 0.00 0.00 - 0.01 K/cumm C[facility] BJ Comment:Testing performed by : [facility], [address] [facility] [phone] Blood specimen (specimen) 04/11/2020 3:49 PM CDT 04/11/2020 3:50 PM CDT Sabrina Willard NP LAB BLOOD ORDERABLES Final R esult Performing Organization Address [facility] de Phone Number [facility] [place] [address] * (ABNORMAL) Chromogranin A (04/11/2020 3:25 PM CDT) Chromogranin A 250(H) <93 ng/mL [facility] Comment: Impaired renal or hepatic function or [...] malignant disease. Test Performed by: [facility] - [address] [address] Housekeeper Child Care: Immanuel Novak M.D. Ph.D.; CLIA# [id number] Blood specimen (specimen) 04/11/2020 3:25 PM CDT 04/11/2020 7:55 PM CDT Sabrina Willard HEEL SANDER LAB BLOOD ORDERABLES Final R esult Performing Organization Address [facility] Co de Phone Number [facility] [email or web address] [address] * (ABNORMAL) Chromogranin A (03/15/2020 3:27 PM [...] absence of malignant disease. Test Performed by: [place] [address] Housekeeper Child Care: Immanuel Novak M.D. Ph.D.; CLIA# [id number] Blood specimen (specimen) 03/15/2020 3:27 PM CDT 03/15/2020 5:11 PM CDT Sabrina Willard NP LAB BLOOD ORDERABLES Final R esult [facility] Department of Laboratories [place], [place] [address] * (ABNORMAL) Comprehensive metabolic panel (03/15/2020 3:27 PM CDT) Pathologist [facility] Sodium 139 135 - 145 mmol/L J[facility] BLACK Comment:Testing performed by : [facility], [facility] [address] Potassium, pl 3.8 3.3 - 4.9 mmol/L [facility] BLACK Comment:Testing performed by : [facility], [facility] [address] Chloride 104 97 - 110 mmol/L [facility] BLACK Comment:Testing performed by : [facility], [address] [place] [address] CO2 29 22 - 32 mmol/L [facility] BJ Comment:Testing performed by : [facility], [address] [place] [phone] Anion gap 6 2 - 15 mmol/L C[facility] BJ Comment:Testing performed by : [facility], [address] [place] [phone] BUN 13 8 - 25 mg/dL CERN[facility] BJ Comment:Testing performed by : [facility], [address] [place] [phone] Creatinine 0.84 0.60 - 1.10 mg/dL C[facility] BJ Comment:Testing performed by : [facility], [address] [place] [phone] Glucose 128 70 - 199 mg/dL CERNER [...] last revised 2017. Testing performed by: [facility], [address] [place] [phone] Calcium 11.1(H) 8.5 - 10.3 mg/dL CERNER BJ Comment:Testing performed by : [facility], [address] [place] [address] Bilirubin, total 0.4 0.1 - 1.2 mg/dL CERN[facility] BJ Comment:Testing performed by : [facility], [address] [place] [phone] Protein, pl 6.9 6.5 - 8.5 g/dL [facility] BJ Comment:Testing performed by : [facility], [address] [place] [address] Albumin 4.6 3.5 - 5.0 g/dL [facility] BJ Comment:Testing performed by : [facility], [address] [place] [phone] Alk phos 98 40 - 130 Units/L [facility] BLACK Comment:Testing performed by : [facility], [address] [place], [place] [phone] ALT 15 7 - 45 Units/L [facility] BL[facility] Comment:Testing performed by : [facility], [address] [place] [phone] AST 22 10 - 45 Units/L [facility] BLACK Comment:Testing performed by : [facility], [address] [place] [phone] Blood specimen (specimen) 03/15/2020 3:27 PM CDT 03/15/2020 3:29 PM CDT Sabrina Willard NP LAB BLOOD ORDERABLES Final R esult Performing Organization Address City/State/[facility] Co de Phone Number [facility] BL[facility] Department [place] [address] * (ABNORMAL) CBC with auto differential (03/15/2020 3:27 PM CDT) WBC 4.3 3.8 - 9.8 K/cumm [facility] BLACK Comment:Testing performed by : [facility], [address] [place] [phone] Hgb 13.1 12.1 - 15.1 g/dL [facility] BL[facility] Comment:Testing performed by : [facility], [address] [place] [address] Hct 37.2 36.1 - 44.3 % [facility] BLACK Comment:Testing performed by : [facility], [address] [place] [phone] Plt 120(L) 140 - 440 K/cumm [facility] BLACK Comment:Testing performed by : [address] [address] MPV 7.9 6.8 - 10.4 fL [facility] BLACK Comment:Testing performed by : [address] [address] RBC 3.95 3.90 - 5.00 M/cumm [facility] BLACK Comment:Testing performed by : [facility], [address] [place] [phone] MCV 94.3 80.0 - 97.6 fL [facility] BLACK Comment:Testing performed by : [facility], [address] [place] [address] MCH 33.1 26.7 - 33.7 pg [facility] BLACK Comment:Testing performed by : [facility], [address] [place] [phone] MCHC 35.1 32.7 - 35.5 g/dL [facility] BLACK Comment:Testing performed by : [facility], [address] [place] [phone] RDW CV 13.2 11.8 - 14.6 % [facility] BLACK Comment:Testing performed by : [facility], [address] [place] [phone] NRBC abs 0.00 0.00 - 0.01 K/cumm [facility] BLACK Comment:Testing performed by : [facility], [address] [place] [phone] Blood specimen (specimen) 03/15/2020 3:27 PM CDT 03/15/2020 3:29 PM CDT Sabrina Willard NP LAB BLOOD ORDERABLES Final R esult Performing Organization Address City/State/[facility] Co de Phone Number [facility] Department [place] [address] documented in this encounter Visit Diagnoses Diagnosis [...] 05/09/202003/15 documented in this encounter Care Teams Hydrator Relationship Specialty Start Date End Date Julio César Briseno MD PCP - General 10/01/16 Eren Cr MD Referring Physician Medical Oncology 11/25/18 Yohana Bowen MD Radiation Oncologist Radiation Oncology 11/25/18 documented as of this encounter
--- OUTSIDE RECORDS SUMMARY | 2024-06-26 02:15 | XMS_ITS | Encounter Summary ---
Author Organization [facility] Healthcare Address [address] [place] [address] Care Team Providers Care Nursing Informatics Specialist Name Role Phone Julio César Briseno MD Primary Care Provider [phone] Eren Cr MD Unavailable [phone] Yohana Bowen MD Unavailable Reason for Referral * MRI/CAT/PET Scan (Routine) - Closed Specialty Diagnoses / Procedures Referred By Contac t Referred To Contact Radiology Diagnoses Neuroendocrine carcinoma (HCC) Procedures CT soft tissue neck with contrast Sabrina Willard NP [address] [place] [address] Phone: tel: fax: [address] [phone] Referral ID Status Reason Start Date Expiration Date Visits Re quested Visits Authorized [id number] Closed 02/15/2020 03/16/2021 1 1 * Diagnostic Imaging (Routine) - Closed Specialty Diagnoses / Procedures Referred By Contac t Referred To Contact Radiology Diagnoses Neuro-endocrine carcinoma (HCC) Neuroendocrine carcinoma (HCC) Malignant neoplasm metastatic to liver (HCC) Procedures CT Chest Abdomen Pelvis W Contrast Yohana Bowen MD [facility] # [facility] [address] [place] [address] Phone: tel: fax: [address] [phone] Referral ID Status Reason Start Date Expiration Date Visits Re quested Visits Authorized [id number] Closed 02/05/2020 03/06/2021 1 1 Reason for Visit * MRI/CAT/PET Scan (Routine) - Closed Specialty Diagnoses / Procedures Referred By Contac t Referred To Contact Radiology Diagnoses Neuroendocrine carcinoma (HCC) Procedures CT soft tissue neck with contrast Sabrina Willard NP [address] [place] [address] Phone: tel: fax: [address] [phone] Referral ID Status Reason Start Date Expiration Date Visits Re quested Visits Authorized [id number] Closed 02/15/2020 03/16/2021 1 1 Encounter Details Date Type Department Care Team (Latest Contact Info) Description 05/03/2020 11:14 AM CDT - 05/03/2020 11:23 AM CDT Hospital Encounter [facility] [address] [place] [id number] Sabrina Willard NP [address] [place] [address] Neuro-endocrine carcinoma (CMS/HCC); Neuroendocrine carcinoma (CMS/HCC); Malignant [...] on file 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 Gender Identity Not on file Sexual [...] capsuleIndications :supplement Take 1 tablet by mouth quality control chemist before breakfast 07/04/2016 4 cholecalciferol (VITAMIN D-3) 2,000 unit capsule Take 1 capsule (2,000 Units total) by mouth daily 30 capsule 2 04/25/2019 3 cholestyramine (QUESTRAN) 4 gram packet Take 1 packet by mouth 3 (three) times a day with meals 270 packet 3 09/04/2019 2 clotrimazole-betam ethasone (LOTRISONE) cream Apply 1 Application topically daily as needed (rash) 4 coenzyme [id number] E 100-5 mg-unit capsuleIndications :supplement Take 1 tablet by mouth quality control chemist before breakfast [address] (CYMBALTA) 30 [...] normal. The limited view of the [place] is unremarkable. The visualized portions [...] normal. The limited view of the [place] is unremarkable. The visualized portions [...] by: Fly Benavidez M.D. Yohana Bowen MD [facility] [place] PROCEDURES Final Result documented in this [...] 05/03/2020 documented in this encounter Care Teams Nursing Informatics Specialist Relationship Specialty Start Date End Date Julio César Briseno MD PCP - General 10/01/16 Eren Cr MD Referring Physician Medical Oncology 11/25/18 Yohana Bowen MD Radiation Oncologist Radiation Oncology 11/25/18 documented as of this encounter
--- OUTSIDE RECORDS SUMMARY | 2024-06-26 02:15 | XMS_ITS | Encounter Summary ---
Author Organization 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) Procedures CO OCTREOTIDE INJECTION, DEPOT Octreotide 28 Day Cycles - Carcinoid Eren Cr MD [address] [place] [address] Phone: tel: fax: [facility] Cancer [address] [address] Phone: tel: fax: Referral ID Status Reason Start Date Expiration Date V isits Requested Visits Authorized [id number] Authorized 11/28/2017 02/05/2025 1 150 Encounter Details Date Type Department Care Team (Late st Contact Info) Description 03/15/2020 3:15 PM CDT Lab [facility] Oncology [facility] [address] [place] [address] [place] [id number] Neuroendocrine carcinoma (CMS/HCC); Malignant neoplasm metastatic to liver (CMS/HCC) Social History Tobacco Use Types Packs/Day Years Used Date Smoking Tobacco: Never Smokeless Tobacco: Never Alcohol Use Standard Drinks/Week Comments Yes 1 (1 standard drink = 0.6 oz pur e alcohol) Comments No Sex and Gender Information Value Date Recorded Sex Assigned at Not on file 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 Gender Identity Not on file Sexual [...] Comment:Testing performed by : [facility], [address] [place] [phone] Lymphocyte abs 0.4(L) 1.2 - 3.3 K/cumm JASON BLACK Comment:Testing performed by : [facility], [address] [place] [phone] Monocyte abs 0.6 0.2 - 1.2 K/cumm CERMINNIE BJ Comment:Testing performed by : [facility], [address] [place] [phone] Eosinophil abs 0.1 0.0 - 0.5 K/cumm CERMINNIE BJ Comment:Testing performed by : [facility], [address] [place] [phone] Basophil abs 0.0 0.0 - 0.2 K/cumm JASON BJ Comment:Testing performed by : [facility], [address] [place] [phone] Neutrophil pct 76.3 % CERNER BJ Comment: Interpretive Data Percent cell count reference ranges are not reported, since discordance with absolute values may lead to misinterpretation of CBC data. Current Interpretive Data was last revised on 2017. Testing performed by: [facility], [address] [place] [phone] Lymphocyte pct 8.5 % CERNER BJ Comment: Interpretive Data Percent cell count reference ranges are not reported, since discordance with absolute values may lead to misinterpretation of CBC data. Current Interpretive Data was last revised on 2017. Testing performed by: [facility], [address] [place] [phone] Monocyte pct 13.2 % CERNER BJ Comment:Testing performed by : [facility], [address] [place] [phone] Eosinophil pct 1.4 % CERNER BJ Comment:Testing performed by : [facility], [address] [place] [phone] Basophil pct 0.6 % CERNER BJ Comment:Testing performed by : [facility], [address] [place] [phone] Blood specimen (specimen) 03/15/2020 3:27 PM CDT 03/15/2020 3:29 PM CDT us Sabrina Willard NP LAB BLOOD ORDERABLES Final R esult [facility] Department [place] [address] * (ABNORMAL) CBC with auto differential (03/15/2020 3:27 PM CDT) WBC 4.3 3.8 - 9.8 K/cumm CERNER BJ Comment:Testing performed by : [facility], [address] [place], [place] [phone] Hgb 13.1 12.1 - 15.1 g/dL CERNER BJ Comment:Testing performed by : [facility], [address] [place], [place] [phone] Hct 37.2 36.1 - 44.3 % CERNER BJ Comment:Testing performed by : [place] [id number] Plt 120(L) 140 - 440 K/cumm CERNER BJ Comment:Testing performed by : [place] [id number] MPV 7.9 6.8 - 10.4 fL CERNER BJ Comment:Testing performed by : [place] [id number] RBC 3.95 3.90 - 5.00 M/cumm CERNER BJ Comment:Testing performed by : [place] [id number] MCV 94.3 80.0 - 97.6 fL CERNER BJ Comment:Testing performed by : [place] [id number] MCH 33.1 26.7 - 33.7 pg CERNER BJ Comment:Testing performed by : [place] [id number] MCHC 35.1 32.7 - 35.5 g/dL CERNER BJ Comment:Testing performed by : [place] [id number] RDW CV 13.2 11.8 - 14.6 % CERNER BJ Comment:Testing performed by : [place] [id number] NRBC abs 0.00 0.00 - 0.01 K/cumm CERNER BJ Comment:Testing performed by : [address] [phone] Blood specimen (specimen) 03/15/2020 3:27 PM CDT 03/15/2020 3:29 PM CDT Sabrina Willard NP LAB BLOOD ORDERABLES Final R esult [facility] Department [place] [address] * (ABNORMAL) Comprehensive metabolic panel (03/15/2020 3:27 PM CDT) Sodium 139 135 - 145 mmol/L [facility] Comment:Testing performed by : [facility], [address] [place] [phone] Potassium, pl 3.8 3.3 - 4.9 mmol/L JASON BLACK Comment:Testing performed by : [address] [phone] Chloride 104 97 - 110 mmol/L [facility] Comment:Testing performed by : [address] [phone] CO2 29 22 - 32 mmol/L JASON BLACK Comment:Testing performed by : [address] [phone] Anion gap 6 2 - 15 mmol/L JASON BLACK Comment:Testing performed by : [address] [phone] BUN 13 8 - 25 mg/dL [facility] Comment:Testing performed by : [address] [phone] Creatinine 0.84 0.60 - 1.10 mg/dL [facility] Comment:Testing performed by : [address] [phone] Glucose 128 70 - 199 mg/dL [facility] Comment: Interpretive Data Fasting glucose >/= [...] 2017. Testing performed by: [facility], [address] [place] [phone] Calcium 11.1(H) 8.5 - 10.3 mg/dL [facility] Comment:Testing performed by : [facility], [address] [place] [phone] Bilirubin, total 0.4 0.1 - 1.2 mg/dL [facility] Comment:Testing performed by : [facility], [address] [place] [phone] Protein, pl 6.9 6.5 - 8.5 g/dL [facility] Comment:Testing performed by : [facility], [address] [place] [phone] Albumin 4.6 3.5 - 5.0 g/dL [facility] Comment:Testing performed by : [address] [phone] Alk phos 98 40 - 130 Units/L [facility] Comment:Testing performed by : [facility], [address] [place] [phone] ALT 15 7 - 45 Units/L [facility] Comment:Testing performed by : [address] [phone] AST 22 10 - 45 Units/L [facility] Comment:Testing performed by : [facility], [address] [place] [phone] Blood specimen (specimen) 03/15/2020 3:27 PM CDT 03/15/2020 3:29 PM CDT us Sabrina Willard NP LAB BLOOD ORDERABLES Final R esult [facility] Department [place] [address] * (ABNORMAL) Chromogranin A (03/15/2020 3:27 PM [...] absence of malignant disease. Test Performed by: [facility] [address] [place] [address] Submarine Advisory Team Watch Officer: Immanuel Novak M.D. Ph.D.; CLIA# [id number] Blood specimen (specimen) 03/15/2020 3:27 PM CDT 03/15/2020 5:11 PM CDT us Sabrina Willard NETWORK DEVELOPER LAB BLOOD ORDERABLES Final R esult JASON [facility] Department [place] [address] documented in this encounter Visit Diagnoses Diagnosis Neuroendocrine carcinoma (HCC) Other malignant neoplasm of unspecified site Malignant neoplasm metastatic to liver (HCC) documented in this encounter Orders Appointment Requests Count Last Ordered Date Fi rst Ordered Date ONCBCN LAB APPOINTMENT 1 03/15/2020 documented in this encounter Care Teams Toy Painter Relationship Specialty Start Date End Date Julio César Briseno MD PCP - General 10/01/16 Eren Cr MD Referring Physician Medical Oncology 11/25/18 Yohana Bowen MD Radiation Oncologist Radiation Oncology 11/25/18 documented as of this encounter
--- OUTSIDE RECORDS SUMMARY | 2024-06-26 02:15 | XMS_ITS | Encounter Summary ---
Author Organization [facility] Address [address] [place] [address] Phone Care Team Providers Care Tool Grinder Operator Name Role Phone Julio César Briseno MD Primary Care Provider [phone] Eren Cr MD Unavailable [phone] Yohana Bowen MD Unavailable Encounter Details Date Type Department Care Team (Late st Contact Info) Description 03/16/2020 Orders Only [facility] Oncology [address] [place] [address] Eren Cr MD [address] [place], [place] [id number] 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); Neuroendocrine carcinoma (CMS/HCC) Social History Tobacco Use Types Packs/Day Years Used Date Smoking Tobacco: Never Smokeless Tobacco: Never Alcohol Use Standard Drinks/Week Comments Yes 1 (1 standard drink = 0.6 oz pur e alcohol) Comments No Sex and Gender Information Value Date Recorded Sex Assigned at Not on file 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 Gender Identity Not on file Sexual [...] Final Re sult [facility] Department [place] [address] documented in this encounter Visit Diagnoses Diagnosis Malignant neoplasm metastatic to liver (HCC)- Primary Neuroendocrine carcinoma (HCC) Other malignant neoplasm of unspecified site documented in this encounter Care Teams Tool Grinder Operator Relationship Specialty Start Date End Date Julio César Briseno MD PCP - General 10/01/16 Eren Cr MD Referring Physician Medical Oncology 11/25/18 Yohana Bowen MD Radiation Oncologist Radiation Oncology 11/25/18 documented as of this encounter
--- OUTSIDE RECORDS SUMMARY | 2024-06-26 02:15 | XMS_ITS | Encounter Summary ---
Author Organization [facility] Address [address] [place] [address] Care Team Providers Care Veneer Taping Machine Operator Name Role Phone Julio César Briseno MD Primary Care Provider [phone] Eren Cr MD Unavailable [phone] Yohana Bowen MD Unavailable Reason for Visit * Reason Comments Follow-up Encounter Details Date Type Department Care Team (Late st Contact Info) Description 05/04/2020 10:30 AM CDT Telemedicine [facility] Advanced Medicine Radiation Oncology [address] [place] [address] Advanced Medicine [facility] [place] [address] Yohana Bowen MD [facility] [address] [place] [address] Neuroendocrine carcinoma (CMS/HCC) (Primary Dx) Social History Tobacco Use Types Packs/Day Years Used Date Smoking Tobacco: Never Smokeless Tobacco: Never Alcohol Use Standard Drinks/Week Comments Yes 1 (1 standard drink = 0.6 oz pur e alcohol) Comments No Sex and Gender Information Value Date Recorded Sex Assigned at Not on file 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 Pt was last seen on 04/[address] Reeves and is continuing with silver nitrate [...] mouth 3 (three) times a day with [id number] packet 3 ??? clotrimazole-betamethasone (LOTRISONE) cream clotrimazole-betamethasone 1 %- 0.05 % topical cream APPLY EXTERNALLY TO ABDOMEN TWICE DAILY NEEDED ??? coenzyme S24-hsuetwf E (CO Q-10, WITH VIT E,) 100-5 [...] vomiting 20 tablet 3 ??? [facility] Patient has colostomy and needs Cavilon [...] Yohana Bowen MD at 05/09/2020 11:11 AM ELASTIC TAPE INSERTER TIC TAPE INSERTER Associated attestation - Yohana Bowen MD - 05/09/2020 11:11 AM ELASTIC TAPE INSERTER I have seen and examined the patient. [...] which took place via Real-time video connection ([employer], Zoom or similar).During the visit, I was located in the office and the patient was located at home in the [facility]. I was present for the damon portions [...] site documented in this encounter Care Teams Veneer Taping Machine Operator Relationship Specialty Start Date End Date Julio César Briseno MD PCP - General 10/01/16 Eren Cr MD Referring Physician Medical Oncology 11/25/18 Yohana Bowen MD Radiation Oncologist Radiation Oncology 11/25/18 documented as of this encounter
--- OUTSIDE RECORDS SUMMARY | 2024-06-26 02:15 | XMS_ITS | Encounter Summary ---
Author Organization [facility] Address [address] [place] [address] Phone Care Team Providers Care Sql Dba Name Role Phone Julio César Briseno MD Primary Care Provider [phone] Eren Lund MD Unavailable [phone] Yohana Bowen MD Unavailable Reason for Visit * Reason Comments Skin Exam Encounter Details Date Type Department Care Team (Late st Contact Info) Description 05/06/2020 2:00 PM CDT Office Visit [facility] Dermatology [facility] [address] [place] [phone] Po Newberry MD PhD [address] [place] [phone] Neoplasm of skin (Primary Dx); Seborrheic keratosis; [...] on file 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 La Chung [id number] 05/06/20 CHIEF COMPLAINT: FBSE, spot on right [...] with exception of these notable exam findings: Oppelo sclerotic 1cm plaque on the R posterior shoulder Stuck on skin colored plaque on the b/l lower legs Oppelo scaly papule on the chest Oppelo scaly patches on hands b/l ASSESSMENT AND [...] risks including bleeding, scarring, infection, and recurrence/persistence. Bailey Protocol Time-Out performed. The lesional area was [...] CDT) Tissue 05/06/2020 05/09/2020 3:2 4 AM SHELTERED WORKSHOP WORKER [facility]MAT[facility] - 05/10/2020 12:39 PM SHELTERED WORKSHOP WORKER [facility] results best viewed via link to PDF [facility] Dermatopathology Center [address] [place] [address] , ??[address] [place] [address] ?[email or web address] [email or web address] REPORT Patient Information: PATIENT NAME: ??LA CHUNG ? SEX: ??F ? : ??1950 (Age: 69) ? Specimen Information: COLLECTED: ??05/06/2020 ? RECEIVED: ??05/09/2020 ? REPORTED: ??05/10/2020 ? Submitting Physician Information: Po Newberry M.D. [place] [address] [facility] [place] [facility], ? DERMATOPATHOLOGY REPORT RESULTS ?? DIAGNOSIS: A. [...] in-situ hybridization tests were determined by the [facility] in ongoing quality intern and in compliance with regulations drawn from the Clinical Laboratory Improvement Act of 1988 (CLIA '88). These tests may rely on the use of analyte specific reagents that are subject to specific labeling requirements by the [place] FDA, and may only be performed in a facility that is certified by the [facility] as a high-complexity laboratory under CLIA '88. ??These tests are used for clinical purposes and are not investigational. ??For lab developed tests, the validation has been reviewed; the performance is considered acceptable for patient testing. Po Newberry MD PhD LAB PATHOLOGY OR DERABLES Final Result DERMATOPATHOLOGY CENTER [address] [place] [address] documented in this encounter Visit Diagnoses Diagnosis [...] site documented in this encounter Care Teams Sql Dba Relationship Specialty Start Date End Date Julio César Briseno MD PCP - General 10/01/16 Eren Lund MD Referring Physician Medical Oncology 11/25/18 Yohana Bowen MD Radiation Oncologist Radiation Oncology 11/25/18 documented as of this encounter
--- OUTSIDE RECORDS SUMMARY | 2024-06-26 02:15 | XMS_ITS | Encounter Summary ---
Author Organization [facility] Healthcare Address [address] [place] [address] Care Team Providers Care Oracle Specialist Name Role Phone Julio César Briseno MD Primary Care Provider [phone] Eren Cr MD Unavailable [phone] Yohana Bowen MD Unavailable Reason for Referral * Diagnostic Imaging (Routine) - Closed Specialty Diagnoses / Procedures Referred By Contac t Referred To Contact Diagnoses Neuroendocrine carcinoma (HCC) Bone metastasis Procedures XR Humerus Left 2 or More Views Sabrina Willard NP [address] [place] [address] Phone: tel: fax: [address] [address] Referral ID Status Reason Start Date Expiration Date Visits Re quested Visits Authorized [id number] Closed 02/15/2020 03/16/2021 1 1 Reason for Visit * Diagnostic Imaging (Routine) - Closed Specialty Diagnoses / Procedures Referred By Contac t Referred To Contact Diagnoses Neuroendocrine carcinoma (HCC) Bone metastasis Procedures XR Humerus Left 2 or More Views Sabrina Willard NP [address] [place] [address] Phone: tel: fax: [facility] [place] [address] Referral ID Status Reason Start Date Expiration Date Visits Re quested Visits Authorized [id number] Closed 02/15/2020 03/16/2021 1 1 Encounter Details Date Type Department Care Team (Latest Contact Info) Description 05/03/2020 11:24 AM CDT - 05/03/2020 11:59 PM CDT Hospital Encounter [facility] Rad[facility] [address] [place] [address] Sabrina Willard NP [address] [place] [address] Neuroendocrine carcinoma (CMS/HCC); Bone metastasis [...] on file 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 Gender Identity Not on file Sexual [...] capsuleIndications :supplement Take 1 tablet by mouth hogshead inspector before breakfast 07/04/2016 4 cholecalciferol (VITAMIN D-3) 2,000 unit capsule Take 1 capsule (2,000 Units total) by mouth daily 30 capsule 2 04/25/2019 3 cholestyramine (QUESTRAN) 4 gram packet Take 1 packet by mouth 3 (three) times a day with meals 270 packet 3 09/04/2019 2 clotrimazole-betam ethasone (LOTRISONE) cream Apply 1 Application topically daily as needed (rash) 4 coenzyme E42-kynbysm E 100-5 mg-unit capsuleIndications :supplement Take 1 tablet by mouth hogshead inspector before breakfast [address] (CYMBALTA) 30 [...] signed by: Petros Viveros M.D. Sabrina Willard BROADLOOM WEAVER IMG XR PROCEDURES Final Resu lt documented in this encounter Visit Diagnoses Diagnosis Neuroendocrine carcinoma (HCC) Other malignant neoplasm of unspecified site Bone metastasis Secondary malignant neoplasm of bone and bone marrow documented in this encounter Care Teams Oracle Specialist Relationship Specialty Start Date End Date Julio César Briseno MD PCP - General 10/01/16 Eren Cr MD Referring Physician Medical Oncology 11/25/18 Yohana Bowen MD Radiation Oncologist Radiation Oncology 11/25/18 documented as of this encounter
--- OUTSIDE RECORDS SUMMARY | 2024-06-26 02:15 | XMS_ITS | Encounter Summary ---
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) Procedures [place] OCTREOTIDE INJECTION, DEPOT Octreotide 28 Day Cycles - Carcinoid Eren Cr MD [address] [place] [address] Phone: tel: fax: [facility] [address] [address] Phone: tel: fax: Referral ID Status Reason Start Date Expiration Date V isits Requested Visits Authorized [id number] Authorized 11/28/2017 02/05/2025 1 150 Encounter Details Date Type Department Care Team (Late st Contact Info) Description 04/11/2020 3:30 PM CDT Lab [facility] Oncology [address] [place] [address] [place] [address] Neuroendocrine carcinoma (CMS/HCC); Malignant neoplasm metastatic to liver (CMS/HCC) Social History Tobacco Use Types Packs/Day Years Used Date Smoking Tobacco: Never Smokeless Tobacco: Never Alcohol Use Standard Drinks/Week Comments Yes 1 (1 standard drink = 0.6 oz pur e alcohol) Comments No Sex and Gender Information Value Date Recorded Sex Assigned at Not on file Legal Sex Female 2:41 PM [place] Gender Identity Not on file Sexual [...] K/cumm JASON LEAVITT Comment:Testing performed by : [facility], [address] [place] [phone] Lymphocyte abs 0.4(L) 1.2 - 3.3 K/cumm [facility] Comment:Testing performed by : [facility], [address] [place] [phone] Monocyte abs 0.5 0.2 - 1.2 K/cumm [facility] Comment:Testing performed by : [facility], [address] [place] [phone] Eosinophil abs 0.1 0.0 - 0.5 K/cumm [facility] Comment:Testing performed by : [facility], [address] [place] [phone] Basophil abs 0.0 0.0 - 0.2 K/cumm [facility] Comment:Testing performed by : [facility], [address] [place] [phone] Neutrophil pct 75.9 % [facility] Comment: Interpretive Data Percent cell count reference ranges are not reported, since discordance with absolute values may lead to misinterpretation of CBC data. Current Interpretive Data was last revised on 2017. Testing performed by: [facility], [address] [place] [phone] Lymphocyte pct 9.9 % [facility] Comment: Interpretive Data Percent cell count reference ranges are not reported, since discordance with absolute values may lead to misinterpretation of CBC data. Current Interpretive Data was last revised on 2017. Testing performed by: [facility], [address] [place] [phone] Monocyte pct 12.4 % [facility] Comment:Testing performed by : [facility], [address] [place] [phone] Eosinophil pct 1.3 % [facility] Comment:Testing performed by : [facility], [address] [place] [phone] Basophil pct 0.5 % [facility] Comment:Testing performed by : [facility], [address] [place] [phone] Blood specimen (specimen) 04/11/2020 3:49 PM CDT 04/11/2020 3:50 PM CDT Sabrina Willard AIRLINE RESERVATIONIST LAB BLOOD ORDERABLES Final R esult JASON [facility] Department [place] [address] * (ABNORMAL) Comprehensive metabolic panel (04/11/2020 3:49 PM CDT) Sodium 143 135 - 145 mmol/L JASON [facility] Comment:Testing performed by : [facility], [address] [place] [phone] Potassium, pl 4.1 3.3 - 4.9 mmol/L [facility]ERMINNIE [facility] Comment:Testing performed by : [facility], [address] [place] [phone] Chloride 107 97 - 110 mmol/L [facility] Comment:Testing performed by : [facility], [address] [place] [phone] CO2 29 22 - 32 mmol/L [facility]MIN[facility] Comment:Testing performed by : [facility], [address] [place] [phone] Anion gap 7 2 - 15 mmol/L JASON [facility] Comment:Testing performed by : [facility], [address] [place] [phone] BUN 12 8 - 25 mg/dL [facility]ERMINNIE [facility] Comment:Testing performed by : [facility], [address] [place] [phone] Creatinine 0.79 0.60 - 1.10 mg/dL JASON [facility] Comment:Testing performed by : [address] [phone] Glucose 131 70 - 199 mg/dL JASON [facility] Comment: Interpretive Data Fasting glucose >/= [...] was last revised 2017. Testing performed by: [facility], [address] [place] [phone] Calcium 10.8(H) 8.5 - 10.3 mg/dL [facility]ERMINNIE [facility] Comment:Testing performed by : [facility], [address] [place] [phone] Bilirubin, total 0.3 0.1 - 1.2 mg/dL [facility]MIN[facility] Comment:Testing performed by : [facility], [address] [place] [phone] Protein, pl 6.9 6.5 - 8.5 g/dL [facility]MIN[facility]IE [facility] Comment:Testing performed by : [facility], [address] [place] [phone] Albumin 4.5 3.5 - 5.0 g/dL [facility] Comment:Testing performed by : [facility], [address] [place], [place] [phone] Alk phos 90 40 - 130 Units/L [facility] Comment:Testing performed by : [facility], [address] [place] [phone] ALT 16 7 - 45 Units/L [facility]IE [facility] Comment:Testing performed by : [facility], [address] [place] [phone] AST 21 10 - 45 Units/L [facility] Comment:Testing performed by : [facility], [address] [place] [phone] Blood specimen (specimen) 04/11/2020 3:49 PM CDT 04/11/2020 3:50 PM CDT Sabrina Willard AIRLINE RESERVATIONIST LAB BLOOD ORDERABLES Final R esult [facility] Department [place] [address] * (ABNORMAL) CBC with auto differential (04/11/2020 3:49 PM CDT) WBC 4.0 3.8 - 9.8 K/cumm JASON [facility] Comment:Testing performed by : [facility], [address] [place] [phone] Hgb 12.7 12.1 - 15.1 g/dL CERNER [facility] Comment:Testing performed by : [facility], [address] [place], [place] [phone] Hct 37.0 36.1 - 44.3 % [facility]ER [facility] Comment:Testing performed by : [facility], [address] [place], [place] [phone] Plt 121(L) 140 - 440 K/cumm [facility] Comment:Testing performed by : [facility], [address] [place], [place] [phone] MPV 7.2 6.8 - 10.4 fL [facility] Comment:Testing performed by : [place] [address] RBC 3.98 3.90 - 5.00 M/cumm [facility] Comment:Testing performed by : [place] [address] MCV 93.0 80.0 - 97.6 fL [facility]ER [facility] Comment:Testing performed by : [facility], [address] [place], [place] [phone] MCH 31.9 26.7 - 33.7 pg C[facility]ER [facility] Comment:Testing performed by : [place] [id number] MCHC 34.4 32.7 - 35.5 g/dL C[facility]ER [facility] Comment:Testing performed by : [place] [id number] RDW CV 13.5 11.8 - 14.6 % [facility]ER [facility] Comment:Testing performed by : [facility], [address] [place], [place] [phone] NRBC abs 0.00 0.00 - 0.01 K/cumm [facility] Comment:Testing performed by : [place] [id number] Blood specimen (specimen) 04/11/2020 3:49 PM CDT 04/11/2020 3:50 PM CDT us Sabrina Willard AIRLINE RESERVATIONIST LAB BLOOD ORDERABLES Final R esult Performing Organization Address [facility]/ZIP Co de Phone Number [facility] [place] [address] * (ABNORMAL) Calcium, ionized (04/11/2020 3:49 PM CDT) Calcium, Ionized 5.86(H) 4.50 - 5.10 mg/dL [facility] Blood specimen (specimen) 04/11/2020 3:49 PM CDT 04/11/2020 4:41 PM CDT Eren Cr MD LAB BLOOD ORDERABLES Final Re sult Performing Organization Address [facility] Co de Phone Number [facility] [place] [address] * (ABNORMAL) Chromogranin A (04/11/2020 3:25 PM CDT) Chromogranin A 250(H) <93 ng/mL [facility] Comment: Impaired renal or hepatic function or treatment with proton pump inhibitors may result in artifactual elevations of Chromogranin A. ADDITIONAL INFORMATION This test was developed and its performance characteristics determined by [facility] in a manner consistent with CLIA [...] absence of malignant disease. Test Performed by: [facility] [address] [place] [address] [employer] Build[employer] Decorator: Immanuel Novak M.D. Ph.D.; CLIA# [id number] Blood specimen (specimen) 04/11/2020 3:25 PM CDT 04/11/2020 7:55 PM CDT Sabrina Willard AIRLINE RESERVATIONIST LAB BLOOD ORDERABLES Final R esult JASON BLACK [facility] [place] [address] documented in this encounter Visit Diagnoses Diagnosis Neuroendocrine carcinoma (HCC) Other malignant neoplasm of unspecified site Malignant neoplasm metastatic to liver (HCC) documented in this encounter Orders Appointment Requests Count Last Ordered Date Fi rst Ordered Date ONCBCN LAB APPOINTMENT 1 04/11/2020 documented in this encounter Care Teams Brick Tender Relationship Specialty Start Date End Date Julio César Briseno MD PCP - General 10/01/16 Eren Cr MD Referring Physician Medical Oncology 11/25/18 Yohana Bowen MD Radiation Oncologist Radiation Oncology 11/25/18 documented as of this encounter
--- OUTSIDE RECORDS SUMMARY | 2024-06-26 02:15 | XMS_ITS | Encounter Summary ---
Author Organization [facility] Address [address] [place] [address] Phone Care Team Providers Care Charrer Name Role Phone Julio César Briseno MD Primary Care Provider [phone] Eren Cr MD Unavailable [phone] Yohana Bowen MD Unavailable Reason for Visit * Episode Based Medications (Routine) - Authorized Specialty Diagnoses / Procedures Referred By Evelyne t Referred To Contact Oncology Diagnoses Neuroendocrine carcinoma (HCC) Malignant neoplasm metastatic to liver (HCC) Procedures [place] OCTREOTIDE INJECTION, DEPOT Octreotide 28 Day Cycles - Carcinoid Eren Cr MD [address] [facility] [address] [place] [address] Phone: tel: fax: [facility] [address] [address] Phone: tel: fax: Referral ID Status Reason Start Date Expiration Date V isits Requested Visits Authorized [id number] Authorized 11/28/2017 02/05/2025 1 150 Encounter Details Date Type Department Care Team (Late st Contact Info) Description 02/15/2020 3:30 PM CDT Infusion [facility] Oncology [address] [place] [address] [place] [address] Neuroendocrine carcinoma (CMS/HCC) (Primary Dx); Malignant neoplasm metastatic to liver (CMS/HCC) Social History Tobacco Use Types Packs/Day Years Used Date Smoking Tobacco: Never Smokeless Tobacco: Never Alcohol Use Standard Drinks/Week Comments Yes 1 (1 standard drink = 0.6 oz pur e alcohol) Comments No Sex and Gender Information Value Date Recorded Sex Assigned at Not on file Legal Sex Female 2:41 PM [employer]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
--- OUTSIDE RECORDS SUMMARY | 2024-06-26 02:15 | XMS_ITS | Encounter Summary ---
Author Organization [facility] Address [address] [place] [address] Phone Care Team Providers Care Marionette Performer Name Role Phone Julio César Briseno MD Primary Care Provider [phone] Eren Cr MD Unavailable [phone] Yohana Bowen MD Unavailable Reason for Referral * Diagnostic Imaging (Routine) - Closed Specialty Diagnoses / Procedures Referred By 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) Procedures CT Chest Abdomen W Contrast Eren Cr MD [address] [place] [address] Phone: tel: fax: [address] [phone] Referral ID Status Reason Start Date Expiration Date Visits Re quested Visits Authorized [id number] Closed 05/09/2020 06/08/2021 1 1 ORGAN MECHANIC APPRENTICE * MRI/CAT/PET Scan (Routine) - Closed Specialty Diagnoses / Procedures Referred By Contac t Referred To Contact Radiology Diagnoses Neuro-endocrine carcinoma (HCC) Bone metastasis Malignant neoplasm metastatic to liver (HCC) Procedures CT soft tissue neck with contrast Eren Cr MD [address] [facility] [address] [place] [address] Phone: tel: fax: [address] [phone] Referral ID Status Reason Start Date Expiration Date Visits Re quested Visits Authorized [id number] Closed 05/09/2020 06/08/2021 1 1 ORGAN MECHANIC APPRENTICE 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) Procedures [place] OCTREOTIDE INJECTION, DEPOT Octreotide 28 Day Cycles - Carcinoid Eren Cr MD [address] [facility] [address] [place] [address] Phone: tel: fax: [address] [address] Phone: tel: fax: Referral ID Status Reason Start Date Expiration Date V isits Requested Visits Authorized [id number] Authorized 11/28/2017 02/05/2025 1 150 Encounter Details Date Type Department Care Team (Late st Contact Info) Description 05/09/2020 3:00 PM PIPE ORGAN MECHANIC APPRENTICE Office Visit [facility] Oncology [address] [place] [address] 7th [place] [address] [place] [address] Eren Cr MD [address] [facility] [address] [place] [address] Neuro-endocrine carcinoma (CMS/HCC) (Primary Dx); Bone metastasis [...] file Legal Sex Female 2:41 PM PIPE ORGAN MECHANIC APPRENTICE Gender Identity Not on file Sexual Orientation Straight 02/19/2021 9: 29 AM CDT Occupation Industry Job Start Date Job End Date retired Not on file Not on file Not on file documented as of this encounter Last Filed Vital Signs Vital Sign Reading Time Taken Comments Blood Pressure 148/76 05/09/2020 3:11 PM PIPE ORGAN MECHANIC APPRENTICE Pulse 93 05/09/2020 3:11 PM PIPE ORGAN MECHANIC APPRENTICE Temperature 36.9 ??C (98.4 ??F) 05/09/2020 3:11 PM CS T Respiratory Rate 16 05/09/2020 3:11 PM PIPE ORGAN MECHANIC APPRENTICE Oxygen Saturation 96% 05/09/2020 3:11 PM PIPE ORGAN MECHANIC APPRENTICE Inhaled Oxygen Concentration - - Weight 83 kg (183 lb) 05/09/2020 3:11 PM PIPE ORGAN MECHANIC APPRENTICE Height - - Body Mass Index 32.42 [...] visit., Disp: , Rfl: ??? [facility] has colostomy and needs Cavilon [...] Disp: 270 packet, Rfl: 3 ??? coenzyme [id number] E (CO Q-10, WITH VIT E,) 100-5 [...] are normal. The limited view of the [place] is unremarkable. The visualized portions [...] in 3 months and see me then. ORGAN MECHANIC APPRENTICE documented in this encounter Plan of Treatment Not on file documented as of this encounter Results * CT Chest Abdomen W Contrast (08/01/2020 3:38 PM PIPE ORGAN MECHANIC APPRENTICE) Anatomical Region Laterality Modality Body N/A Computed Tomogra phy 08/01/2020 4:00 PM PIPE ORGAN MECHANIC APPRENTICE Impressions 08/01/2020 4:00 PM PIPE ORGAN MECHANIC APPRENTICE No significant change in multiple serosal hepatic metastases and omental metastatic disease. Electronically signed by: Cindy Llanes M.D. Narrative 08/01/2020 4:00 PM PIPE ORGAN MECHANIC APPRENTICE CT of the chest and abdomen with [...] tissue neck with contrast (08/01/2020 3:38 PM PIPE ORGAN MECHANIC APPRENTICE) Anatomical Region Laterality Modality Head and Neck N/A Computed Tomogra phy 08/01/2020 4:39 PM PIPE ORGAN MECHANIC APPRENTICE Impressions 08/01/2020 5:17 PM PIPE ORGAN MECHANIC APPRENTICE 1. ??Unchanged sclerotic lesion within the inferior right C7 articular facet likely representing metastasis given dotatate uptake. 2. ??Unchanged prominent right supraclavicular lymph node. Dictated by: Michael Black M.D. The radiology attending physician has personally reviewed this study, and had reviewed and/or edited this written report and agrees with it. Electronically signed by: Elaine Sandoval M.D. Narrative 08/01/2020 5:17 PM PIPE ORGAN MECHANIC APPRENTICE EXAMINATION: CT of the neck with contrast [...] are normal. The limited view of the [place] is unremarkable. The visualized portions [...] are normal. The limited view of the [place] is unremarkable. The visualized portions [...] by: Elaine Sandoval M.D. Eren Cr MD [facility] CT PROCEDURES Final Resul t * (ABNORMAL) Chromogranin A (07/04/2020 3:30 PM PIPE ORGAN MECHANIC APPRENTICE) Chromogranin A 340(H) <93 ng/mL JASON LEAVITT Comment: Impaired renal or hepatic function or treatment with proton pump inhibitors may result in artifactual elevations of Chromogranin A. ADDITIONAL INFORMATION This test was developed and its performance characteristics determined by [facility] in a manner consistent with CLIA [...] absence of malignant disease. Test Performed by: [facility] - [place] [address] [place] [address] Outside Cutter: Immanuel Novak M.D. Ph.D.; CLIA# [id number] Blood specimen (specimen) 07/04/2020 3:30 PM PIPE ORGAN MECHANIC APPRENTICE 07/04/2020 4:17 PM PIPE ORGAN MECHANIC APPRENTICE us Eren Cr MD LAB BLOOD ORDERABLES Final Re sult [facility] One [facility] Department [place] [address] * (ABNORMAL) Comprehensive metabolic panel (07/04/2020 3:30 PM PIPE ORGAN MECHANIC APPRENTICE) Sodium 141 135 - 145 mmol/L J[facility]ON [facility] Comment:Testing performed by : [facility], [address] [place] [phone] Potassium, pl 4.1 3.3 - 4.9 mmol/L J[facility]ON [facility] Comment:Testing performed by : [facility], [address] [place] [phone] Chloride 105 97 - 110 mmol/L [facility] Comment:Testing performed by : [facility], [address] [place] [phone] CO2 30 22 - 32 mmol/L [facility] Comment:Testing performed by : [facility], [address] [place] [phone] Anion gap 6 2 - 15 mmol/L [facility] Comment:Testing performed by : [address] [address] BUN 15 8 - 25 mg/dL [facility] Comment:Testing performed by : [facility], [address] [place] [phone] Creatinine 1.11(H) 0.60 - 1.10 mg/dL [facility] Comment:Testing performed by : [facility], [address] [place] [phone] Glucose 125 70 - 199 mg/dL [facility] Comment: Interpretive Data Fasting glucose >/= 126 [...] revised 2017. Testing performed by: [facility], [address] [place] [phone] Calcium 11.0(H) 8.5 - 10.3 mg/dL [facility] Comment:Testing performed by : [facility], [address] [place] [phone] Bilirubin, total 0.4 0.1 - 1.2 mg/dL [facility] Comment:Testing performed by : [facility], [address] [place] [phone] Protein, pl 7.3 6.5 - 8.5 g/dL [facility] Comment:Testing performed by : [address] [phone] Albumin 4.5 3.5 - 5.0 g/dL [facility] Comment:Testing performed by : [facility], [address] [place] [phone] Alk phos 96 40 - 130 Units/L [facility] Comment:Testing performed by : [address] [phone] ALT 20 7 - 45 Units/L [facility] Comment:Testing performed by : [address] [phone] AST 24 10 - 45 Units/L [facility] Comment:Testing performed by : [facility], [address] [place] [phone] Blood specimen (specimen) 07/04/2020 3:30 PM PIPE ORGAN MECHANIC APPRENTICE 07/04/2020 3:34 PM PIPE ORGAN MECHANIC APPRENTICE us Eren Cr MD LAB BLOOD ORDERABLES Final Re sult [facility] One [facility] Department [place] [address] * (ABNORMAL) CBC with auto differential (07/04/2020 3:30 PM PIPE ORGAN MECHANIC APPRENTICE) WBC 5.0 3.8 - 9.8 K/cumm [facility]ER [facility] Comment:Testing performed by : [place] [address] Hgb 13.4 12.1 - 15.1 g/dL [facility] Comment:Testing performed by : [place] [address] Hct 39.7 36.1 - 44.3 % [facility] Comment:Testing performed by : [place] [address] Plt 129(L) 140 - 440 K/cumm [facility] Comment:Testing performed by : [place] [address] MPV 7.6 6.8 - 10.4 fL [facility] Comment:Testing performed by : [place] [address] RBC 4.29 3.90 - 5.00 M/cumm [facility] Comment:Testing performed by : [place] [address] MCV 92.5 80.0 - 97.6 fL [facility] Comment:Testing performed by : [place] [address] MCH 31.3 26.7 - 33.7 pg [facility] Comment:Testing performed by : [place] [address] MCHC 33.9 32.7 - 35.5 g/dL [facility] Comment:Testing performed by : [place] [address] RDW CV 13.9 11.8 - 14.6 % [facility] Comment:Testing performed by : [place] [address] NRBC abs 0.00 0.00 - 0.01 K/cumm [facility] Comment:Testing performed by : [place] [phone] Blood specimen (specimen) 07/04/2020 3:30 PM PIPE ORGAN MECHANIC APPRENTICE 07/04/2020 3:34 PM PIPE ORGAN MECHANIC APPRENTICE us Eren Cr MD LAB BLOOD ORDERABLES Final Re sult [facility] One [facility] Department [place] [address] * (ABNORMAL) Comprehensive metabolic panel (06/06/2020 3:37 PM PIPE ORGAN MECHANIC APPRENTICE) Sodium 139 135 - 145 mmol/L [facility] Comment:Testing performed by : [facility], [address] [place] [phone] Potassium, pl 4.0 3.3 - 4.9 mmol/L [facility] Comment: Hemolyzed; result may be falsely elevated. Testing performed by: [address] [phone] Chloride 105 97 - 110 mmol/L [facility] Comment:Testing performed by : [facility], [address] [place] [phone] CO2 29 22 - 32 mmol/L [facility] Comment:Testing performed by : [address] [phone] Anion gap 5 2 - 15 mmol/L [facility] Comment:Testing performed by : [address] [phone] BUN 11 8 - 25 mg/dL [facility] Comment:Testing performed by : [facility], [address] [place] [phone] Creatinine 0.78 0.60 - 1.10 mg/dL [facility] Comment:Testing performed by : [address] [phone] Glucose 115 70 - 199 mg/dL [facility] Comment: Interpretive Data Fasting glucose >/= 126 [...] revised 2017. Testing performed by: [facility], [address] [place] [phone] Calcium 10.5(H) 8.5 - 10.3 mg/dL [facility] Comment:Testing performed by : [facility], [address] [place] [phone] Bilirubin, total 0.4 0.1 - 1.2 mg/dL [facility] Comment:Testing performed by : [facility], [address] [place] [phone] Protein, pl 7.2 6.5 - 8.5 g/dL [facility] Comment:Testing performed by : [facility], [address] [place] [phone] Albumin 4.4 3.5 - 5.0 g/dL [facility] Comment:Testing performed by : [facility], [address] [place] [phone] Alk phos 110 40 - 130 Units/L [facility] Comment:Testing performed by : [facility], [address] [place] [phone] ALT 14 7 - 45 Units/L [facility] Comment:Testing performed by : [address] [phone] AST 23 10 - 45 Units/L [facility] Comment: Hemolyzed; result may be falsely elevated. Testing performed by: [facility], [address] [place] [phone] Blood specimen (specimen) 06/06/2020 3:37 PM PIPE ORGAN MECHANIC APPRENTICE 06/06/2020 3:39 PM PIPE ORGAN MECHANIC APPRENTICE us Eren Cr MD LAB BLOOD ORDERABLES Final Re sult [facility] One [facility] Department [place] [address] * (ABNORMAL) CBC with auto differential (06/06/2020 3:37 PM PIPE ORGAN MECHANIC APPRENTICE) WBC 4.9 3.8 - 9.8 K/cumm [facility] Comment:Testing performed by : [facility], [address] [place], [place] [phone] Hgb 13.6 12.1 - 15.1 g/dL [facility] Comment:Testing performed by : [facility], [address] [place] [phone] Hct 40.3 36.1 - 44.3 % [facility] Comment:Testing performed by : [place] [phone] Plt 128(L) 140 - 440 K/cumm [facility] Comment:Testing performed by : [address] [phone] MPV 7.9 6.8 - 10.4 fL [facility] Comment:Testing performed by : [facility], [address] [place], [place] [phone] RBC 4.41 3.90 - 5.00 M/cumm [facility] Comment:Testing performed by : [place] [phone] MCV 91.3 80.0 - 97.6 fL [facility] Comment:Testing performed by : [address] [address] MCH 30.8 26.7 - 33.7 pg [facility] Comment:Testing performed by : [facility], [address] [place] [phone] MCHC 33.7 32.7 - 35.5 g/dL [facility] Comment:Testing performed by : [place] [phone] RDW CV 13.6 11.8 - 14.6 % [facility] Comment:Testing performed by : [address] [phone] NRBC abs 0.01 0.00 - 0.01 K/cumm [facility] Comment:Testing performed by : [facility], [facility] [phone] Blood specimen (specimen) 06/06/2020 3:37 PM PIPE ORGAN MECHANIC APPRENTICE 06/06/2020 3:39 PM PIPE ORGAN MECHANIC APPRENTICE Eren Cr MD LAB BLOOD ORDERABLES Final Re sult Performing Organization Address [facility] Co de Phone Number JASON BLACK [facility] [place] [address] * (ABNORMAL) Chromogranin A (06/06/2020 3:36 PM PIPE ORGAN MECHANIC APPRENTICE) Chromogranin A 313(H) <93 ng/mL JASON BLACK Comment: Impaired renal or hepatic function or treatment with proton pump inhibitors may result in artifactual elevations of Chromogranin A. ADDITIONAL INFORMATION This test was developed and its performance characteristics determined by [facility] in a manner consistent with CLIA [...] absence of malignant disease. Test Performed by: [facility] - [address] [address] Outside Cutter: Immanuel Novak M.D. Ph.D.; CLIA# [id number] Blood specimen (specimen) 06/06/2020 3:36 PM PIPE ORGAN MECHANIC APPRENTICE 06/06/2020 4:32 PM PIPE ORGAN MECHANIC APPRENTICE Eren Cr MD LAB BLOOD ORDERABLES Final Re sult JASON BLACK [facility] [place] [address] documented in this encounter Visit Diagnoses Diagnosis [...] 020 documented in this encounter Care Teams Marionette Performer Relationship Specialty Start Date End Date Julio César Briseno MD PCP - General 10/01/16 Eren Cr MD Referring Physician Medical Oncology 11/25/18 Yohana Bowen MD Radiation Oncologist Radiation Oncology 11/25/18 documented as of this encounter
--- OUTSIDE RECORDS SUMMARY | 2024-06-26 02:15 | XMS_ITS | Encounter Summary ---
Author Organization [facility] Address [address] [place] [address] Phone Care Team Providers Care Computer Network Specialist Name Role Phone Julio César Briseno MD Primary Care Provider [phone] Eren Cr MD Unavailable [phone] Yohana Bowen MD Unavailable Reason for Visit * Episode Based Medications (Routine) - Authorized Specialty Diagnoses / Procedures Referred By Evelyne t Referred To Contact Oncology Diagnoses Neuroendocrine carcinoma (HCC) Malignant neoplasm metastatic to liver (HCC) Procedures [place] OCTREOTIDE INJECTION, DEPOT Octreotide 28 Day Cycles - Carcinoid Eren Cr MD [address] [facility] [address] [place] [address] Phone: tel: fax: [facility] [address] [address] Phone: tel: fax: Referral ID Status Reason Start Date Expiration Date V isits Requested Visits Authorized [id number] Authorized 11/28/2017 02/05/2025 1 150 Encounter Details Date Type Department Care Team (Late st Contact Info) Description 03/15/2020 3:45 PM CDT Infusion 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
--- OUTSIDE RECORDS SUMMARY | 2024-06-26 02:15 | XMS_ITS | Encounter Summary ---
Author Organization [facility] Address [address] [place] [address] Phone Care Team Providers Care Clinical Manager Name Role Phone Julio César Briseno MD Primary Care Provider [phone] Eren Cr MD Unavailable [phone] Yohana Bowen MD Unavailable Reason for Visit * Reason Comments Osteoporosis * Diagnostic Imaging (Routine) - Closed Specialty Diagnoses / Procedures Referred By Evelyne bowman Referred To Contact Diagnoses Abnormal bone density screening Procedures Dexa Axial Skeleton Bone Density 1 or 2 Site Oksana Rivas NP Phone: tel: fax: [facility] (All Locations) Referral ID Status Reason Start Date Expiration Date Visits Re quested Visits Authorized [id number] Closed 01/13/2020 07/24/2021 1 1 Encounter Details Date Type Department Care Team (Latest Contact Info) Description 03/10/2020 9:30 AM CDT Clinical Support [facility] [address] [facility] 5th [place] [address] [place] [address] Abnormal bone density screening; Osteopenia of left hip Social History Tobacco Use Types Packs/Day Years Used Date Smoking Tobacco: Never Smokeless Tobacco: Never Alcohol Use Standard Drinks/Week Comments Yes 1 (1 standard drink = 0.6 oz pur e alcohol) Comments No Sex and Gender Information Value Date Recorded Sex Assigned at Not on file Legal Sex Female 2:41 PM MANUFACTURER REPRESENTATIVE Gender Identity Not on file Sexual [...] Bone mineral density was performed on a [employer] Discovery Densitometer. ?? Machine Cross-calibration and Precision [...] by the International Society of Clinical Densitometry. [id number] Oksana Rivas OIL WELL PERFORATOR OPERATOR IMG DXA PROCEDURES Final Result documented in this encounter Visit Diagnoses Diagnosis Abnormal bone density screening Osteopenia of left hip documented in this encounter Care Teams Clinical Manager Relationship Specialty Start Date End Date Julio César Briseno MD PCP - General 10/01/16 Eren Cr MD Referring Physician Medical Oncology 11/25/18 Yohana Bowen MD Radiation Oncologist Radiation Oncology 11/25/18 documented as of this encounter
--- OUTSIDE RECORDS SUMMARY | 2024-06-26 02:15 | XMS_ITS | Encounter Summary ---
Author Organization [facility] Address [address] [facility] [address] [place] [address] Phone Care Team Providers Care Therapist Phys Name Role Phone Julio César Briseno MD Primary Care Provider Eren Cr MD Unavailable [phone] Yohana Bowen MD Unavailable Reason for Visit * Reason Comments colostomy complication [facility] Encounter Details Date Type Department Care Team (Latest Contact Info) Description 04/14/2020 2:00 PM CDT Office Visit [facility] Surgery [address] 2nd [address] [place] [address] Greyson Reeves MD [address] [facility] [phone] [place] [address] Neuroendocrine carcinoma (CMS/HCC) (Primary Dx); Colostomy in [...] file Legal 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 ? MA REMOVAL OF TONSILS,<12 Y/O Tonsillectomy - (Added by TW Conv) ??? MA TOTAL ABDOM HYSTERECTOMY Hysterectomy - (Added by TW Conv) HOME MEDICATIONS : ascorbic acid, vitamin C, 500 mg capsule cholecalciferol (VITAMIN D-3) 2,000 unit capsule cholestyramine (QUESTRAN) 4 gram packet clotrimazole-betamethasone (LOTRISONE) cream coenzyme [id number]-ngktfit E (CO Q-10, WITH VIT E,) 100-5 [...] (HCC) documented in this encounter Care Teams Therapist Phys Relationship Specialty Start Date End Date Julio César Briseno MD PCP - General 10/01/16 Eren Cr MD Referring Physician Medical Oncology 11/25/18 Yohana Bowen MD Radiation Oncologist Radiation Oncology 11/25/18 documented as of this encounter
--- OUTSIDE RECORDS SUMMARY | 2024-06-26 02:15 | XMS_ITS | Encounter Summary ---
Author Organization [facility] Address [address] [place] [address] Phone Care Team Providers Care Product Distribution Specialist Name Role Phone Julio César Briseno MD Primary Care Provider [phone] Eren Cr MD Unavailable [phone] Yohana Bowen MD Unavailable Reason for Visit * Episode Based Medications (Routine) - Authorized Specialty Diagnoses / Procedures Referred By Evelyne t Referred To Contact Oncology Diagnoses Neuroendocrine carcinoma (HCC) Malignant neoplasm metastatic to liver (HCC) Procedures [place] OCTREOTIDE INJECTION, DEPOT Octreotide 28 Day Cycles - Carcinoid Eren Cr MD [address] [facility] [address] [place] [address] Phone: tel: fax: [facility] [address] [address] Phone: tel: fax: Referral ID Status Reason Start Date Expiration Date V isits Requested Visits Authorized [id number] Authorized 11/28/2017 02/05/2025 1 150 Encounter Details Date Type Department Care Team (Late st Contact Info) Description 04/11/2020 4:00 PM CDT Infusion [facility] Oncology [address] [place] [address] [place] [address] Neuroendocrine carcinoma (CMS/HCC) (Primary Dx); Malignant neoplasm metastatic to liver (CMS/HCC) Social History Tobacco Use Types Packs/Day Years Used Date Smoking Tobacco: Never Smokeless Tobacco: Never Alcohol Use Standard Drinks/Week Comments Yes 1 (1 standard drink = 0.6 oz pur e alcohol) Comments No Sex and Gender Information Value Date Recorded Sex Assigned at Not on file Legal Sex Female 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
--- OUTSIDE RECORDS SUMMARY | 2024-06-26 02:15 | XMS_ITS | Encounter Summary ---
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) Procedures [place] OCTREOTIDE INJECTION, DEPOT Octreotide 28 Day Cycles - Carcinoid Eren Cr MD [address] [facility] [address] [place] [address] Phone: tel: fax: [facility] [address] [address] Phone: tel: fax: Referral ID Status Reason Start Date Expiration Date V isits Requested Visits Authorized [id number] Authorized 11/28/2017 02/05/2025 1 150 Encounter Details Date Type Department Care Team (Late st Contact Info) Description 05/09/2020 2:30 PM SHIPWRIGHT APPRENTICE Lab [facility] Oncology Counts include 234 beds at the [facility] 7th [place] [address] [place] [address] Neuroendocrine carcinoma (CMS/HCC); Malignant neoplasm metastatic to liver (CMS/HCC) Social History Tobacco Use Types Packs/Day Years Used Date Smoking Tobacco: Never Smokeless Tobacco: Never Alcohol Use Standard Drinks/Week Comments Yes 1 (1 standard drink = 0.6 oz pur e alcohol) Comments No Sex and Gender Information Value Date Recorded Sex Assigned at Not on file Legal Sex Female 2:41 PM SHIPWRIGHT APPRENTICE Gender Identity Not on file Sexual Orientation Straight 02/19/2021 9: 29 AM CDT Occupation Industry Job Start Date Job End Date retired Not on file Not on file Not on file documented as of this encounter Plan of Treatment Not on file documented as of this encounter Procedures Procedure Name Priority Date/Time Associated Diagnosis Comments DIFFERENTIAL AUTO Routine 05/09/2020 2:3 0 PM SHIPWRIGHT APPRENTICE Neuroendocrine carcinoma (CMS/HCC) Malignant neoplasm metastatic to liver (CMS/HCC) CHROMOGRANIN A Routine 05/09/2020 2:30 PM SHIPWRIGHT APPRENTICE Neuroendocrine carcinoma (CMS/HCC) Malignant neoplasm metastatic to liver (CMS/HCC) CBC WITH AUTO DIFFERENTIAL Routine 05/09/2020 2:30 PM SHIPWRIGHT APPRENTICE Neuroendocrine carcinoma (CMS/HCC) Malignant neoplasm metastatic to liver (CMS/HCC) COMPREHENSIVE METABOLIC PANEL Routine 05/09/2020 2:30 PM SHIPWRIGHT APPRENTICE Neuroendocrine carcinoma (CMS/HCC) Malignant neoplasm metastatic to liver (CMS/HCC) documented in this encounter Results * (ABNORMAL) Differential, auto (05/09/2020 2:30 PM SHIPWRIGHT APPRENTICE) Neutrophil abs 3.8 1.8 - 6.6 K/cumm JASON BLACK Comment:Testing performed by : [facility], [address] [place] [phone] Lymphocyte abs 0.6(L) 1.2 - 3.3 K/cumm JASON BLACK Comment:Testing performed by : [facility], Counts include 234 beds at the [facility] [address] Monocyte abs 0.8 0.2 - 1.2 K/cumm JASON LEAVITT Comment:Testing performed by : [facility], [address] [place] [phone] Eosinophil abs 0.1 0.0 - 0.5 K/cumm CERNER BJ Comment:Testing performed by : [facility], [address] [place] [phone] Basophil abs 0.0 0.0 - 0.2 K/cumm CERNER BJ Comment:Testing performed by : [facility], [address] [place] [phone] Neutrophil pct 72.8 % CERNER BJ Comment: Interpretive Data Percent cell count reference ranges are not reported, since discordance with absolute values may lead to misinterpretation of CBC data. Current Interpretive Data was last revised on 2017. Testing performed by: [facility], [address] [place] [phone] Lymphocyte pct 11.0 % CERNER BJ Comment: Interpretive Data Percent cell count reference ranges are not reported, since discordance with absolute values may lead to misinterpretation of CBC data. Current Interpretive Data was last revised on 2017. Testing performed by: [facility], [address] [place] [phone] Monocyte pct 14.7 % CERNER BJ Comment:Testing performed by : [facility], [address] [place] [phone] Eosinophil pct 1.1 % CERNER BJ Comment:Testing performed by : [address] [phone] Basophil pct 0.4 % CERNER BJ Comment:Testing performed by : [facility], [address] [place] [phone] Blood specimen (specimen) 05/09/2020 2:30 PM SHIPWRIGHT APPRENTICE 05/09/2020 2:32 PM SHIPWRIGHT APPRENTICE Sabrina Willard NP LAB BLOOD ORDERABLES Final R esult [facility] [place] [address] * (ABNORMAL) CBC with auto differential (05/09/2020 2:30 PM SHIPWRIGHT APPRENTICE) WBC 5.3 3.8 - 9.8 K/cumm CERNER BJ Comment:Testing performed by : [place] [phone] Hgb 13.6 12.1 - 15.1 g/dL CERNER BJ Comment:Testing performed by : [place] [phone] Hct 39.4 36.1 - 44.3 % CERNER BJH Comment:Testing performed by : [place] [id number] Plt 136(L) 140 - 440 K/cumm CERNER BJ Comment:Testing performed by : [place] [id number] MPV 7.5 6.8 - 10.4 fL CERNER BJ Comment:Testing performed by : [place] [address] RBC 4.26 3.90 - 5.00 M/cumm CERNER BJ Comment:Testing performed by : [place] [id number] MCV 92.5 80.0 - 97.6 fL CERNER BJ Comment:Testing performed by : [place] [id number] MCH 31.9 26.7 - 33.7 pg CERNER BJ Comment:Testing performed by : [place] [id number] MCHC 34.5 32.7 - 35.5 g/dL CERNER BJ Comment:Testing performed by : [place] [id number] RDW CV 13.4 11.8 - 14.6 % CERNER BJ Comment:Testing performed by : [place] [id number] NRBC abs 0.01 0.00 - 0.01 K/cumm CERNER BJH Comment:Testing performed by : [facility], [address], [place] [address] Blood specimen (specimen) 05/09/2020 2:30 PM SHIPWRIGHT APPRENTICE 05/09/2020 2:32 PM SHIPWRIGHT APPRENTICE Sabrina Willard NP LAB BLOOD ORDERABLES Final R esult [facility] [place] [address] * (ABNORMAL) Comprehensive metabolic panel (05/09/2020 2:30 PM SHIPWRIGHT APPRENTICE) Sodium 142 135 - 145 mmol/L JASON [facility] Comment:Testing performed by : [facility], [address] [place] [phone] Potassium, pl 4.3 3.3 - 4.9 mmol/L JASON [facility] Comment:Testing performed by : [address] [phone] Chloride 108 97 - 110 mmol/L JASON [facility] Comment:Testing performed by : [facility], [address] [place] [phone] CO2 28 22 - 32 mmol/L CERMINNIE [facility] Comment:Testing performed by : [address] [phone] Anion gap 6 2 - 15 mmol/L JASON [facility] Comment:Testing performed by : [address] [phone] BUN 12 8 - 25 mg/dL JASON [facility] Comment:Testing performed by : [facility], [address] [place] [phone] Creatinine 0.82 0.60 - 1.10 mg/dL JASON [facility] Comment:Testing performed by : [address] [phone] Glucose 121 70 - 199 mg/dL [facility] [...] revised 2017. Testing performed by: [facility], [address] [place] [phone] Calcium 11.1(H) 8.5 - 10.3 mg/dL CERNER [facility] Comment:Testing performed by : [facility], [address] [place] [phone] Bilirubin, total 0.4 0.1 - 1.2 mg/dL CERNER BJ Comment:Testing performed by : [address] [address] Protein, pl 7.2 6.5 - 8.5 g/dL CERNER BJ Comment:Testing performed by : [address] [phone] Albumin 4.4 3.5 - 5.0 g/dL CERNER BJ Comment:Testing performed by : [facility], [address] [place] [phone] Alk phos 105 40 - 130 Units/L CERNER BJ Comment:Testing performed by : [address] [phone] ALT 17 7 - 45 Units/L CERNER BJ Comment:Testing performed by : [address] [phone] AST 22 10 - 45 Units/L CERNER [facility] Comment:Testing performed by : [facility], [address] [place] [phone] Blood specimen (specimen) 05/09/2020 2:30 PM SHIPWRIGHT APPRENTICE 05/09/2020 2:32 PM SHIPWRIGHT APPRENTICE us Sabrina Willard NP LAB BLOOD ORDERABLES Final R esult [facility] [place] [address] * (ABNORMAL) Chromogranin A (05/09/2020 2:30 PM SHIPWRIGHT APPRENTICE) Chromogranin A 344(H) <93 ng/mL JASON LEAVITT Comment: Impaired renal or hepatic function or treatment with proton pump inhibitors may result in artifactual elevations of Chromogranin A. ADDITIONAL INFORMATION This test was developed and its performance characteristics determined by [facility] in a manner consistent with [...] of malignant disease. Test Performed by: [facility] [address] Glass Melt Operator: Immanuel Novak M.D. 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
--- OUTSIDE RECORDS SUMMARY | 2024-06-26 02:16 | XMS_ITS | Encounter Summary ---
Author Organization [facility] Address [address] [place] [address] Phone Care Team Providers Care Biztalk Developer Name Role Phone Julio César Briseno MD Primary Care Provider [phone] Eren Cr MD Unavailable [phone] Yohana Bowen MD Unavailable Encounter Details Date Type Department Care Team (Late st Contact Info) Description 09/01/2019 Orders Only [facility]cology [address] [place] [address] Sola Heredia Social History Tobacco Use Types Packs/Day Years Used Date Smoking Tobacco: Never Smokeless Tobacco: Never Alcohol Use Standard Drinks/Week Comments Yes 1 (1 standard drink = 0.6 oz pur e alcohol) Comments No Sex and Gender Information Value Date Recorded Sex Assigned at Not on file Legal Sex Female 2:41 PM SINKER WINDER Gender Identity Not on file Sexual Orientation Straight 02/19/2021 9: 29 AM CDT Occupation Industry Job Start Date Job End Date retired Not on file Not on file Not on file documented as of this encounter Plan of Treatment Not on file documented as of this encounter Visit Diagnoses Not on filedocumented in this encounter Care Teams Biztalk Developer Relationship Specialty Start Date End Date Julio César Briseno MD PCP - General 10/01/16 Eren Cr MD Referring Physician Medical Oncology 11/25/18 Yohana Bowen MD Radiation Oncologist Radiation Oncology 11/25/18 documented as of this encounter
--- OUTSIDE RECORDS SUMMARY | 2024-06-26 02:16 | XMS_ITS | Encounter Summary ---
Author Organization [facility] Address [address] [place] [address] Phone Care Team Providers Care Senior Outside Sales Representative Name Role Phone Julio César Briseno MD Primary Care Provider [phone] Eren Cr MD Unavailable [phone] Yohana Bowen MD Unavailable Encounter Details Date Type Department Care Team (Late st Contact Info) Description 09/21/2019 Orders Only [facility] Surgery [address] [facility] Advanced Medicine 8th [place] [address] [place] [address] Greyson Reeves MD [address] [facility] [phone] [place] [address] Social History Tobacco Use Types Packs/Day Years Used Date Smoking Tobacco: Never Smokeless Tobacco: Never Alcohol Use Standard Drinks/Week Comments Yes 1 (1 standard drink = 0.6 oz pur e alcohol) Comments No Sex and Gender Information Value Date Recorded Sex Assigned at Not on file Legal Sex Female 2:41 PM TIER LIFT OPERATOR Gender Identity Not on file Sexual [...] filedocumented in this encounter Care Teams Senior Outside Sales Representative Relationship Specialty Start Date End Date Julio César Briseno MD PCP - General 10/01/16 Eren Cr MD Referring Physician Medical Oncology 11/25/18 Yohana Bowen MD Radiation Oncologist Radiation Oncology 11/25/18 documented as of this encounter
--- OUTSIDE RECORDS SUMMARY | 2024-06-26 02:16 | XMS_ITS | Encounter Summary ---
Author Organization [facility] Address [address] [place] [address] Phone Care Team Providers Care Access Service Representative Name Role Phone Julio César Briseno MD Primary Care Provider Eren Cr MD Unavailable [phone] Yohana Bowen MD Unavailable Encounter Details Date Type Department Care Team (Late st Contact Info) Description 11/16/2019 Orders Only [facility] Oncology [address] [place] [address] Sola Heredia Social History Tobacco Use Types Packs/Day Years Used Date Smoking Tobacco: Never Smokeless Tobacco: Never Alcohol Use Standard Drinks/Week Comments Yes 1 (1 standard drink = 0.6 oz pur e alcohol) Comments No Sex and Gender Information Value Date Recorded Sex Assigned at Not on file Legal Sex Female 2:41 PM STEAM POWERPLANT SUPERVISOR Gender Identity Not on file Sexual [...] documented as of this encounter Care Teams Access Service Representative Relationship Specialty Start Date End Date Julio César Briseno MD PCP - General 10/01/16 Eren Cr MD Referring Physician Medical Oncology 11/25/18 Yohana Bowen MD Radiation Oncologist Radiation Oncology 11/25/18 documented as of this encounter
--- OUTSIDE RECORDS SUMMARY | 2024-06-26 02:16 | XMS_ITS | Encounter Summary ---
Author Organization [facility] Address [address] [place] [address] Care Team Providers Care Dough Cutting Machine Operator Name Role Phone Julio César Briseno MD Primary Care Provider [phone] Eren Cr MD Unavailable [phone] Yohana Bowen MD Unavailable Encounter Details Date Type Department Care Team (Late st Contact Info) Description 08/05/2019 Orders Only [facility] Advanced Medicine Radiation Oncology [address] [facility] [place] [address] Hien Soto RN Social History Tobacco Use Types Packs/Day Years Used Date Smoking Tobacco: Never Smokeless Tobacco: Never Alcohol Use Standard Drinks/Week Comments Yes 1 (1 standard drink = 0.6 oz pur e alcohol) Comments No Sex and Gender Information Value Date Recorded Sex Assigned at Not on file Legal Sex Female 2:41 PM SEWER PIPE CLEANER Gender Identity Not on file Sexual [...] on filedocumented in this encounter Care Teams Dough Cutting Machine Operator Relationship Specialty Start Date End Date Julio César Briseno MD PCP - General 10/01/16 Eren Cr MD Referring Physician Medical Oncology 11/25/18 Yohana Bowen MD Radiation Oncologist Radiation Oncology 11/25/18 documented as of this encounter
--- OUTSIDE RECORDS SUMMARY | 2024-06-26 02:16 | XMS_ITS | Encounter Summary ---
Author Organization [facility] Address [address] [place] [address] Phone Care Team Providers Care Brick Shader Name Role Phone Julio César Briseno MD Primary Care Provider [phone] Eren Cr MD Unavailable [phone] Yohana Bowen MD Unavailable Reason for Visit * Episode Based Medications (Routine) - Authorized Specialty Diagnoses / Procedures Referred By Evelyne t Referred To Contact Oncology Diagnoses Neuroendocrine carcinoma (HCC) Malignant neoplasm metastatic to liver (HCC) Procedures [place] OCTREOTIDE INJECTION, DEPOT Octreotide 28 Day Cycles - Carcinoid Eren Cr MD [address] [place] [address] Phone: tel: fax: [facility] [address] [address] Phone: tel: fax: Referral ID Status Reason Start Date Expiration Date V isits Requested Visits Authorized [id number] Authorized 11/28/2017 02/05/2025 1 150 Encounter Details Date Type Department Care Team (Late st Contact Info) Description 02/15/2020 1:45 PM CDT Lab [facility] Oncology [facility] [address] [place] [address] [place] [address] Neuroendocrine carcinoma (CMS/HCC); Malignant neoplasm metastatic to liver (CMS/HCC) Social History Tobacco Use Types Packs/Day Years Used Date Smoking Tobacco: Never Smokeless Tobacco: Never Alcohol Use Standard Drinks/Week Comments Yes 1 (1 standard drink = 0.6 oz pur e alcohol) Comments No Sex and Gender Information Value Date Recorded Sex Assigned at Not on file Legal Sex Female 2:41 PM TANGIBLE PERSONAL PROPERTY APPRAISER Gender Identity Not on file Sexual Orientation [...] PM CDT PHOSPHORUS Routine 05/09/2020 2:30 PM TANGIBLE PERSONAL PROPERTY APPRAISER DIFFERENTIAL AUTO Routine 02/15/2020 2:0 5 PM [...] BLACK Comment:Testing performed by : [facility], [address] [place] [phone] Blood specimen (specimen) 12/06/2020 3:09 PM CDT 12/06/2020 3:10 PM CDT Eren Cr MD LAB BLOOD ORDERABLES Final Re sult [facility] [place], [place] [id number] * Phosphorus (10/10/2020 4:02 PM CDT) Phosphorus, pl 2.6 2.3 - 4.5 mg/dL [facility] Comment:Testing performed by : [facility], [address] [place] [phone] Blood specimen (specimen) 10/10/2020 4:02 PM CDT 10/10/2020 4:51 PM CDT Eren Cr MD LAB BLOOD ORDERABLES Final Re sult Performing Organization Address City/[facility]/ZIP Co de Phone Number [place], [place] [id number] * Phosphorus (05/09/2020 2:30 PM TANGIBLE PERSONAL PROPERTY APPRAISER) Phosphorus, pl 2.5 2.3 - 4.5 mg/dL [facility] Blood specimen (specimen) 05/09/2020 2:30 PM TANGIBLE PERSONAL PROPERTY APPRAISER 05/09/2020 5:01 PM TANGIBLE PERSONAL PROPERTY APPRAISER Eren Cr MD LAB BLOOD ORDERABLES Final Re sult Performing Organization Address City/[facility]/ZIP Co de Phone Number [place], [place] [id number] * (ABNORMAL) Differential, auto (02/15/2020 2:05 PM CDT) Neutrophil abs 3.2 1.8 - 6.6 K/cumm [facility] Comment:Testing performed by : [facility], [address] [place] [phone] Lymphocyte abs 0.3(L) 1.2 - 3.3 K/cumm [facility] Comment:Testing performed by : [facility], [address] [place] [phone] Monocyte abs 0.5 0.2 - 1.2 K/cumm [facility] Comment:Testing performed by : [facility], [address] [place] [address] Eosinophil abs 0.0 0.0 - 0.5 K/cumm [facility] Comment:Testing performed by : [facility], [address] [place] [phone] Basophil abs 0.0 0.0 - 0.2 K/cumm [facility] Comment:Testing performed by : [facility], [address] [place] [address] Neutrophil pct 78.6 % [facility] Comment: Interpretive Data Percent cell count reference ranges are not reported, since discordance with absolute values may lead to misinterpretation of CBC data. Current Interpretive Data was last revised on 2017. Testing performed by: [facility], [address] [place] [phone] Lymphocyte pct 7.2 % [facility] Comment: Interpretive Data Percent cell count reference ranges are not reported, since discordance with absolute values may lead to misinterpretation of CBC data. Current Interpretive Data was last revised on 2017. Testing performed by: [facility], [address] [place] [address] Monocyte pct 12.6 % [facility] Comment:Testing performed by : [facility], [address] [place] [address] Eosinophil pct 1.2 % [facility] Comment:Testing performed by : [facility], [address] [place] [address] Basophil pct 0.4 % [facility] Comment:Testing performed by : [facility], [address] [place] [phone] Blood specimen (specimen) 02/15/2020 2:05 PM CDT 02/15/2020 2:11 PM CDT us Sabrina Willard NP LAB BLOOD ORDERABLES Final R esult JASON BLACK [facility] Department [place] [address] * (ABNORMAL) CBC with auto differential (02/15/2020 2:05 PM CDT) WBC 4.0 3.8 - 9.8 K/cumm JASON BLACK Comment:Testing performed by : [facility], [address] [place] [phone] Hgb 12.1 12.1 - 15.1 g/dL JASON BLACK Comment:Testing performed by : [address] [address] Hct 35.2(L) 36.1 - 44.3 % JASON BLACK Comment:Testing performed by : [facility], [address] [place] [phone] Plt 117(L) 140 - 440 K/cumm JASON BLACK Comment:Testing performed by : [address] [address] MPV 7.3 6.8 - 10.4 fL JASON BLACK Comment:Testing performed by : [address] [phone] RBC 3.75(L) 3.90 - 5.00 M/cumm JASON BLACK Comment:Testing performed by : [facility], [address] [place] [address] MCV 93.9 80.0 - 97.6 fL [facility] Comment:Testing performed by : [address] [address] MCH 32.3 26.7 - 33.7 pg CERMINNIE BLACK Comment:Testing performed by : [address] [address] MCHC 34.4 32.7 - 35.5 g/dL JASON BLACK Comment:Testing performed by : [facility], [address] [place] [address] RDW CV 12.8 11.8 - 14.6 % JASON BLACK Comment:Testing performed by : [facility], [address] [place] [address] NRBC abs 0.00 0.00 - 0.01 K/cumm JASON BLACK Comment:Testing performed by : [facility], [address] [place] [phone] Blood specimen (specimen) 02/15/2020 2:05 PM CDT 02/15/2020 2:11 PM CDT Sabrina Willard NP LAB BLOOD ORDERABLES Final R esult JASON BLACK [facility] Department [place] [address] * (ABNORMAL) Comprehensive metabolic panel (02/15/2020 2:05 PM CDT) Sodium 141 135 - 145 mmol/L JASON BLACK Comment:Testing performed by : [facility], [address] [place] [phone] Potassium, pl 4.0 3.3 - 4.9 mmol/L JASON BLACK Comment:Testing performed by : [facility], [address] [place] [address] Chloride 105 97 - 110 mmol/L JASON BLACK Comment:Testing performed by : [facility], [address] [place] [address] CO2 29 22 - 32 mmol/L JASON BLACK Comment:Testing performed by : [facility], [address] [place] [address] Anion gap 7 2 - 15 mmol/L JASON BLACK Comment:Testing performed by : [facility], [address] [place] [phone] BUN 12 8 - 25 mg/dL JASON BLACK Comment:Testing performed by : [facility], [address] [place] [address] Creatinine 0.85 0.60 - 1.10 mg/dL JASON LEAVITT Comment:Testing performed by : [facility], [address] [place] [phone] Glucose 123 70 - 199 mg/dL CERNER [...] was last revised 2017. Testing performed by: [address] Calcium 10.9(H) 8.5 - 10.3 mg/dL [facility] Comment:Testing performed by : [place] [id number] Bilirubin, total 0.4 0.1 - 1.2 mg/dL [facility] Comment:Testing performed by : [address] [address] Protein, pl 6.6 6.5 - 8.5 g/dL [facility] Comment:Testing performed by : [place] [id number] Albumin 4.4 3.5 - 5.0 g/dL [facility] Comment:Testing performed by : [address] [address] Alk phos 87 40 - 130 Units/L [facility] Comment:Testing performed by : [place] [id number] ALT 13 7 - 45 Units/L [facility] Comment:Testing performed by : [place] [id number] AST 19 10 - 45 Units/L [facility] Comment:Testing performed by : [address] [address] Blood specimen (specimen) 02/15/2020 2:05 PM CDT 02/15/2020 2:11 PM CDT Sabrina Willard NP LAB BLOOD ORDERABLES Final R esult Performing Organization Address [facility] de Phone Number JASON BLACK [facility] [place] [address] * (ABNORMAL) Chromogranin A (02/15/2020 12:05 PM CDT) Chromogranin A 249(H) <93 ng/mL [facility] Comment: Impaired renal or hepatic function or treatment with proton pump inhibitors may result in artifactual elevations of Chromogranin A. ADDITIONAL INFORMATION This test was developed and its performance characteristics determined by [facility] in a manner consistent with [...] of malignant disease. Test Performed by: [facility] [place] [address] School Librarian: Immanuel Novak M.D. Ph.D.; CLIA# [id number] Blood specimen (specimen) 02/15/2020 12:05 PM CDT 02/15/2020 2:22 PM CDT Sabrina Willard NP LAB BLOOD ORDERABLES Final R esult Performing Organization Address City/[facility]/ZIP Co de Phone Number JASON BLACK [facility] [place] [address] documented in this encounter Visit Diagnoses Diagnosis Neuroendocrine carcinoma (HCC) Other malignant neoplasm of unspecified site Malignant neoplasm metastatic to liver (HCC) documented in this encounter Orders Appointment Requests Count Last Ordered Date Fi rst Ordered Date ONCBCN LAB APPOINTMENT 1 02/15/2020 documented in this encounter Care Teams Brick Shader Relationship Specialty Start Date End Date Julio César Briseno MD PCP - General 10/01/16 Eren Cr MD Referring Physician Medical Oncology 11/25/18 Yohana Bowen MD Radiation Oncologist Radiation Oncology 11/25/18 documented as of this encounter
--- OUTSIDE RECORDS SUMMARY | 2024-06-26 02:16 | XMS_ITS | Encounter Summary ---
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) Procedures [place] OCTREOTIDE INJECTION, DEPOT Octreotide 28 Day Cycles - Carcinoid Eren Cr MD [address] [place] [address] Phone: tel: fax: [address] [address] Phone: tel: fax: Referral ID Status Reason Start Date Expiration Date V isits Requested Visits Authorized [id number] Authorized 11/28/2017 02/05/2025 1 150 Encounter Details Date Type Department Care Team (Latest Contact Info) Description 10/27/2019 11:30 AM CDT Clinical Support [facility] Oncology [address] [place] [address] [place] [phone] Neuroendocrine carcinoma (CMS/HCC); Malignant neoplasm metastatic to liver (CMS/HCC) Social History Tobacco Use Types Packs/Day Years Used Date Smoking Tobacco: Never Smokeless Tobacco: Never Alcohol Use Standard Drinks/Week Comments Yes 1 (1 standard drink = 0.6 oz pur e alcohol) Comments No Sex and Gender Information Value Date Recorded Sex Assigned at Not on file 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 Gender Identity Not on file Sexual [...] abs 3.9 1.8 - 6.6 K/cumm [facility] Comment:Testing performed by : [facility], [address] [place] [phone] Lymphocyte abs 0.3(L) 1.2 - 3.3 K/cumm [facility] Comment:Testing performed by : [facility], [address] [place] [phone] Monocyte abs 0.6 0.2 - 1.2 K/cumm [facility] Comment:Testing performed by : [facility], [address] [place] [address] Eosinophil abs 0.0 0.0 - 0.5 K/cumm [facility] Comment:Testing performed by : [facility], [address] [place] [address] Basophil abs 0.0 0.0 - 0.2 K/cumm [facility] Comment:Testing performed by : [facility], [address] [place] [phone] Neutrophil pct 79.7 % [facility] Comment: Interpretive Data Percent cell count reference ranges are not reported, since discordance with absolute values may lead to misinterpretation of CBC data. Current Interpretive Data was last revised on 2017. Testing performed by: [facility], [address] [place] [phone] Lymphocyte pct 7.0 % [facility] Comment: Interpretive Data Percent cell count reference ranges are not reported, since discordance with absolute values may lead to misinterpretation of CBC data. Current Interpretive Data was last revised on 2017. Testing performed by: [facility], [address] [place] [phone] Monocyte pct 11.9 % [facility] Comment:Testing performed by : [facility], [address] [place] [address] Eosinophil pct 0.9 % [facility] Comment:Testing performed by : [facility], [address] [place] [address] Basophil pct 0.5 % [facility] Comment:Testing performed by : [facility], [address] [place] [phone] Blood specimen (specimen) 10/27/2019 11:19 AM CDT 10/27/2019 11:19 AM CDT Eren Cr MD LAB BLOOD ORDERABLES Final Re sult [facility] Department [place] [address] * (ABNORMAL) CBC with auto differential (10/27/2019 11:19 AM CDT) WBC 5.0 3.8 - 9.8 K/cumm [facility] Comment:Testing performed by : [facility], [address] [place] [phone] Hgb 12.7 12.1 - 15.1 g/dL [facility]ON [facility] Comment:Testing performed by : [address] [address] Hct 36.4 36.1 - 44.3 % [facility]ER[facility]NIE BJ Comment:Testing performed by : [address] [address] Plt 106(L) 140 - 440 K/cumm [facility]ON [facility] Comment:Testing performed by : [facility], [address] [place] [address] MPV 7.5 6.8 - 10.4 fL [facility]ERMINNIE [facility] Comment:Testing performed by : [address] [phone] RBC 3.88(L) 3.90 - 5.00 M/cumm [facility] Comment:Testing performed by : [address] [address] MCV 93.8 80.0 - 97.6 fL [facility] Comment:Testing performed by : [facility], [address] [place] [address] MCH 32.7 26.7 - 33.7 pg [facility]ERMINNIE BJ Comment:Testing performed by : [address] [address] MCHC 34.9 32.7 - 35.5 g/dL JASON BJ Comment:Testing performed by : [address] [address] RDW CV 13.9 11.8 - 14.6 % [facility] Comment:Testing performed by : [facility], [address] [place] [address] NRBC abs 0.00 0.00 - 0.01 K/cumm JASON BLACK Comment:Testing performed by : [facility], [address] [place] [phone] Blood specimen (specimen) 10/27/2019 11:19 AM CDT 10/27/2019 11:19 AM CDT Eren Cr MD LAB BLOOD ORDERABLES Final Re sult JASON BLACK [facility] [place] [address] * Comprehensive metabolic panel (10/27/2019 11:19 AM CDT) Sodium 138 135 - 145 mmol/L JASON BLACK Comment:Testing performed by : [facility], [address] [place] [phone] Potassium, pl 4.6 3.3 - 4.9 mmol/L JASON BLACK Comment:Testing performed by : [facility], [address] [place] [address] Chloride 103 97 - 110 mmol/L JASON BLACK Comment:Testing performed by : [facility], [address] [place] [phone] CO2 28 22 - 32 mmol/L JASON BLACK Comment:Testing performed by : [facility], [address] [place] [phone] Anion gap 7 2 - 15 mmol/L JASON BLACK Comment:Testing performed by : [facility], [address] [place] [phone] BUN 15 8 - 25 mg/dL JASON BLACK Comment:Testing performed by : [facility], [address] [place] [address] Creatinine 0.80 0.60 - 1.10 mg/dL JASON BLACK Comment:Testing performed by : [facility], [address] [place] [address] Glucose 116 70 - 199 mg/dL JASON [...] Testing performed by: [facility], [address] [place] [address] Calcium 10.0 8.5 - 10.3 mg/dL [facility] Comment:Testing performed by : [address] [address] Bilirubin, total 0.8 0.1 - 1.2 mg/dL [facility] Comment:Testing performed by : [address] [address] Protein, pl 6.9 6.5 - 8.5 g/dL [facility] Comment:Testing performed by : [address] [address] Albumin 4.4 3.5 - 5.0 g/dL [facility] Comment:Testing performed by : [address] [address] Alk phos 80 40 - 130 Units/L [facility] Comment:Testing performed by : [address] [phone] ALT 14 7 - 45 Units/L [facility]J Comment:Testing performed by : [address] [address] AST 19 10 - 45 Units/L [facility] Comment:Testing performed by : [address] [phone] Blood specimen (specimen) 10/27/2019 11:19 AM CDT 10/27/2019 11:19 AM CDT us Eren Cr MD LAB BLOOD ORDERABLES Final Re sult Performing Organization Address [facility] de Phone Number [facility] [place] [address] * (ABNORMAL) Chromogranin A (10/27/2019 11:19 AM CDT) Chromogranin A 225(H) <93 ng/mL JASON [facility] Comment: Impaired renal or hepatic function or treatment with proton pump inhibitors may result in artifactual elevations of Chromogranin A. ADDITIONAL INFORMATION This test was developed and its performance characteristics determined by [facility] in a manner consistent with [...] absence of malignant disease. Test Performed by: [place] [address] Competitive Shopper: Immanuel Novak M.D. Ph.D.; CLIA# [id number] Blood specimen (specimen) 10/27/2019 11:19 AM CDT 10/27/2019 1:28 PM CDT Eren Cr MD LAB BLOOD ORDERABLES Final Re sulgracie Performing Organization Address [facility] Co de Phone Number [facility] [employer] [place] [address] documented in this encounter Visit Diagnoses Diagnosis Neuroendocrine carcinoma (HCC) Other malignant neoplasm of unspecified site Malignant neoplasm metastatic to liver (HCC) documented in this encounter Orders Appointment Requests Count Last Ordered Date Fi rst Ordered Date ONCBCN LAB APPOINTMENT 1 10/27/2019 documented in this encounter Care Teams Planting Supervisor Relationship Specialty Start Date End Date Julio César Briseno MD PCP - General 10/01/16 Eren Cr MD Referring Physician Medical Oncology 11/25/18 Yohana Bowen MD Radiation Oncologist Radiation Oncology 11/25/18 documented as of this encounter
--- OUTSIDE RECORDS SUMMARY | 2024-06-26 02:16 | XMS_ITS | Encounter Summary ---
Author Organization [facility] Healthcare Address [address] [place] [address] Care Team Providers Care Machine Skiver Name Role Phone Julio César Briseno MD Primary Care Provider [phone] Eren Cr MD Unavailable [phone] Yohana Bowen MD Unavailable Encounter Details Date Type Department Care Team (Late st Contact Info) Description 11/11/2019 Documentation [facility] Advanced Medicine Radiation Oncology 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
--- OUTSIDE RECORDS SUMMARY | 2024-06-26 02:16 | XMS_ITS | Encounter Summary ---
Author Organization [facility] Address [address] [place] [address] Phone Care Team Providers Care Storm Door Maker Name Role Phone Julio César Briseno MD Primary Care Provider Eren Cr MD Unavailable [phone] Yohana Bowen MD Unavailable Encounter Details Date Type Department Care Team (Late st Contact Info) Description 11/16/2019 Orders Only [facility] Oncology [address] [place] [address] Sola Heredia Social History Tobacco Use Types Packs/Day Years Used Date Smoking Tobacco: Never Smokeless Tobacco: Never Alcohol Use Standard Drinks/Week Comments Yes 1 (1 standard drink = 0.6 oz pur e alcohol) Comments No Sex and Gender Information Value Date Recorded Sex Assigned at Not on file 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
--- OUTSIDE RECORDS SUMMARY | 2024-06-26 02:16 | XMS_ITS | Encounter Summary ---
Author Organization [facility] Address [address] [place] [address] Phone Care Team Providers Care Florist Manager Name Role Phone Julio César Briseno MD Primary Care Provider [phone] Eren Cr MD Unavailable [phone] Yohana Bowen MD Unavailable Encounter Details Date Type Department Care Team (Late st Contact Info) Description 09/24/2019 Orders Only [facility] Oncology [address] [place] [address] Sola Heredia Social History Tobacco Use Types Packs/Day Years Used Date Smoking Tobacco: Never Smokeless Tobacco: Never Alcohol Use Standard Drinks/Week Comments Yes 1 (1 standard drink = 0.6 oz pur e alcohol) Comments No Sex and Gender Information Value Date Recorded Sex Assigned at Not on file 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
--- OUTSIDE RECORDS SUMMARY | 2024-06-26 02:16 | XMS_ITS | Encounter Summary ---
Author Organization [facility] Healthcare Address [address] [place] [address] Care Team Providers Care Copier Technician Name Role Phone Julio César Briseno MD Primary Care Provider [phone] Eren Cr MD Unavailable [phone] Yohana Bowen MD Unavailable Reason for Referral * Diagnostic Imaging (Routine) - Closed Specialty Diagnoses / Procedures Referred By Evelyne bowman Referred To Contact Diagnoses Encounter for screening mammogram for malignant neoplasm of breast Procedures Screening Mammogram Bilateral W Khanh Screening Mammogram, Self [address] [address] Referral ID Status Reason Start Date Expiration Date Visits Re quested Visits Authorized [id number] Closed 12/15/2019 06/25/2021 1 1 Electronically signed by Screening Mammogram, [facility] at 12/21/2019 12:39 PM CDT Reason for Visit * Diagnostic Imaging (Routine) - Closed Specialty Diagnoses / Procedures Referred By Evelyne bowman Referred To Contact Diagnoses Encounter for screening mammogram for malignant neoplasm of breast Procedures Screening Mammogram Bilateral W Khanh Screening Mammogram, [address] [address] Referral ID Status Reason Start Date Expiration Date Visits Re quested Visits Authorized [id number] Closed 12/15/2019 06/25/2021 1 1 Encounter Details Date Type Department Care Team (Latest Contact Info) Description 12/21/2019 12:30 PM CDT - 12/21/2019 11:59 PM CDT Hospital Encounter [facility] [place] [facility] ([facility]) [address] [place] [address] Screening Mammogram, Self Encounter for screening mammogram [...] file Legal 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 The breasts are heterogeneously dense, which may obscure small masses. There is no suspicious abnormality in either breast. Impression: Annual screening mammography is recommended. OVERALL FINAL ASSESSMENT: BI-RADS CATEGORY 1: ??Negative. Procedure Note Penelope Lawosn MD - 12/23/2019 Mammogram Technique: Bilateral Digital Breast Tomosynthesis, Bilateral C-view 2D Screening mammogram. Views obtained: bilateral craniocaudal and bilateral mediolateral oblique. Computer Aided Detection was performed. Mammogram Findings: The present examination has been compared to prior imaging studies performed at [facility] on 06/29/2015, 10/08/2016 and 01/27/2018. The [...] breast documented in this encounter Care Teams Copier Technician Relationship Specialty Start Date End Date Julio César Briseno MD PCP - General 10/01/16 Eren Cr MD Referring Physician Medical Oncology 11/25/18 Yohana Bowen MD Radiation Oncologist Radiation Oncology 11/25/18 documented as of this encounter
--- OUTSIDE RECORDS SUMMARY | 2024-06-26 02:16 | XMS_ITS | Encounter Summary ---
Author Organization [facility] Healthcare Address [address] [place] [address] Care Team Providers Care Configuration Engineer Name Role Phone Julio César Briseno MD Primary Care Provider [phone] Eren Cr MD Unavailable [phone] Yohana Bowen MD Unavailable Encounter Details Date Type Department Care Team (Late st Contact Info) Description 12/18/2019 Telephone [facility] ([facility]) [address] [place] [id number] [address] V[address] Social History Tobacco Use Types Packs/Day Years Used Date Smoking Tobacco: Never Smokeless Tobacco: Never Alcohol Use Standard Drinks/Week Comments Yes 1 (1 standard drink = 0.6 oz pur e alcohol) Comments No Sex and Gender Information Value Date Recorded Sex Assigned at Not on file 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
--- OUTSIDE RECORDS SUMMARY | 2024-06-26 02:16 | XMS_ITS | Encounter Summary ---
Author Organization [facility] Address [address] [place] [address] Phone Care Team Providers Care Assistant Branch Operations Manager Name Role Phone Julio César Briseno MD Primary Care Provider [phone] Eren Cr MD Unavailable [phone] Yohana Bowen MD Unavailable Reason for Visit * Reason Comments Injections * Episode Based Medications (Routine) - Authorized Specialty Diagnoses / Procedures Referred By Contellen t Referred To Contact Oncology Diagnoses Neuroendocrine carcinoma (HCC) Malignant neoplasm metastatic to liver (HCC) Procedures NM OCTREOTIDE INJECTION, DEPOT Octreotide 28 Day Cycles - Carcinoid Eren Cr MD [address] [place] [facility] [address] [place] [address] Phone: tel: fax: [address] [address] Phone: tel: fax: Referral ID Status Reason Start Date Expiration Date V isits Requested Visits Authorized [id number] Authorized 11/28/2017 02/05/2025 1 150 Encounter Details Date Type Department Care Team (Late st Contact Info) Description 12/21/2019 3:30 PM CDT Infusion [facility] Oncology [address] [place] [address] for Advanced Medicine 7th [place] [address] Neuroendocrine carcinoma (CMS/HCC) (Primary Dx); Malignant neoplasm metastatic to liver (CMS/HCC) Social History Tobacco Use Types Packs/Day Years Used Date Smoking Tobacco: Never Smokeless Tobacco: Never Alcohol Use Standard Drinks/Week Comments Yes 1 (1 standard drink = 0.6 oz pur e alcohol) Comments No Sex and Gender Information Value Date Recorded Sex Assigned at Not on file 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
--- OUTSIDE RECORDS SUMMARY | 2024-06-26 02:16 | XMS_ITS | Encounter Summary ---
Author Organization [facility] Address [address] [place] [address] Phone Care Team Providers Care Chartered Wealth Manager Name Role Phone Julio César Briseno MD Primary Care Provider Eren Cr MD Unavailable Yohana Bowen MD Unavailable Encounter Details Date Type Department Care Team (Late st Contact Info) Description 08/17/2019 9:30 AM LODGING HOUSE KEEPER Lab [facility] Oncology [facility] 7th [place] [address] [place] [address] Neuro-endocrine carcinoma (CMS/HCC) Social History Tobacco Use Types Packs/Day Years Used Date Smoking Tobacco: Never Smokeless Tobacco: Never Alcohol Use Standard Drinks/Week Comments Yes 1 (1 standard drink = 0.6 oz pur e alcohol) Comments No Sex and Gender Information Value Date Recorded Sex Assigned at Not on file Legal Sex Female 2:41 PM LODGING HOUSE KEEPER Gender Identity Not on file Sexual Orientation Straight 02/19/2021 9: 29 AM CDT Occupation Industry Job Start Date Job End Date retired Not on file Not on file Not on file documented as of this encounter Plan of Treatment Not on file documented as of this encounter Procedures Procedure Name Priority Date/Time Associated Diagnosis Comments DIFFERENTIAL AUTO Routine 08/17/2019 9:4 7 AM LODGING HOUSE KEEPER Neuro-endocrine carcinoma (CMS/HCC) CBC WITH AUTO DIFFERENTIAL Routine 08/17/2019 9:47 AM LODGING HOUSE KEEPER Neuro-endocrine carcinoma (CMS/HCC) CHROMOGRANIN A Routine 08/17/2019 9:40 AM LODGING HOUSE KEEPER Neuro-endocrine carcinoma (CMS/HCC) COMPREHENSIVE METABOLIC PANEL Routine 08/17/2019 9:40 AM LODGING HOUSE KEEPER Neuro-endocrine carcinoma (CMS/HCC) documented in this encounter Results * (ABNORMAL) Differential, auto (08/17/2019 9:47 AM LODGING HOUSE KEEPER) Neutrophil abs 2.9 1.8 - 6.6 K/cumm [facility] Comment:Testing performed by : [facility], [address] [place] [phone] Lymphocyte abs 0.1(L) 1.2 - 3.3 K/cumm [facility] Comment:Testing performed by : [facility], [address] [place] [phone] Monocyte abs 0.4 0.2 - 1.2 K/cumm [facility] Comment:Testing performed by : [facility], [address] [place] [phone] Eosinophil abs 0.1 0.0 - 0.5 K/cumm [facility] Comment:Testing performed by : [facility], [address] [place] [phone] Basophil abs 0.0 0.0 - 0.2 K/cumm [facility] Comment:Testing performed by : [facility], [address] [place] [phone] Neutrophil pct 81.5 % [facility] Comment: Interpretive Data Percent cell count reference ranges are not reported, since discordance with absolute values may lead to misinterpretation of CBC data. Current Interpretive Data was last revised on 2017. Testing performed by: [facility], [address] [place] [phone] Lymphocyte pct 3.3 % [facility] Comment: Interpretive Data Percent cell count reference ranges are not reported, since discordance with absolute values may lead to misinterpretation of CBC data. Current Interpretive Data was last revised on 2017. Testing performed by: [facility], [address] [place] [phone] Monocyte pct 12.4 % [facility] Comment:Testing performed by : [facility], [address] [place] [phone] Eosinophil pct 2.3 % [facility] Comment:Testing performed by : [facility], [address] [place] [phone] Basophil pct 0.5 % [facility] Comment:Testing performed by : [facility], [address] [place] [phone] Blood specimen (specimen) 08/17/2019 9:47 AM LODGING HOUSE KEEPER 08/17/2019 9:49 AM LODGING HOUSE KEEPER us Sabrina Willard NP LAB BLOOD ORDERABLES Final R esult Performing Organization Address City/State/[facility] Co de Phone Number [facility] [place] [address] * (ABNORMAL) CBC with auto differential (08/17/2019 9:47 AM LODGING HOUSE KEEPER) WBC 3.5(L) 3.8 - 9.8 K/cumm [facility] Comment:Testing performed by : [facility], [address] [place] [phone] Hgb 12.5 12.1 - 15.1 g/dL [facility] Comment:Testing performed by : [facility], [address] [place] [phone] Hct 36.3 36.1 - 44.3 % [facility] Comment:Testing performed by : [facility], [address] [place] [phone] Plt 104(L) 140 - 440 K/cumm [facility] Comment:Testing performed by : [address] [address] MPV 7.6 6.8 - 10.4 fL [facility] Comment:Testing performed by : [facility], [address] [place], [place] [phone] RBC 3.98 3.90 - 5.00 M/cumm [facility] Comment:Testing performed by : [facility], [address] [place] [address] MCV 91.2 80.0 - 97.6 fL [facility] Comment:Testing performed by : [facility], [address] [place], [place] [phone] MCH 31.3 26.7 - 33.7 pg [facility] Comment:Testing performed by : [facility], [address] [place], [place] [phone] MCHC 34.4 32.7 - 35.5 g/dL [facility] Comment:Testing performed by : [facility], [address] [place], [place] [phone] RDW CV 15.0(H) 11.8 - 14.6 % [facility] Comment:Testing performed by : [facility], [address] [place], [place] [phone] NRBC abs 0.00 0.00 - 0.01 K/cumm [facility] Comment:Testing performed by : [facility], [address] [place], [place] [phone] Blood specimen (specimen) 08/17/2019 9:47 AM LODGING HOUSE KEEPER 08/17/2019 9:49 AM LODGING HOUSE KEEPER Sabrina Willard NP LAB BLOOD ORDERABLES Final R esult [facility] [place] [address] * (ABNORMAL) Chromogranin A (08/17/2019 9:40 AM LODGING HOUSE KEEPER) Chromogranin A 273(H) <93 ng/mL [facility] Comment: Impaired renal or hepatic function or treatment with proton pump inhibitors may result in artifactual elevations of Chromogranin A. ADDITIONAL INFORMATION This test was developed and its performance characteristics determined by [facility] in a manner [...] malignant disease. Test Performed by: [facility] [address] [place] [address] Recycling Worker: Immanuel Novak M.D. Ph.D.; CLIA# [id number] Blood specimen (specimen) 08/17/2019 9:40 AM LODGING HOUSE KEEPER 08/17/2019 10:07 AM LODGING HOUSE KEEPER us Sabrina Willard CRAYON MOLDING MACHINE OPERATOR LAB BLOOD ORDERABLES Final R esult [facility] [place] [address] * Comprehensive metabolic panel (08/17/2019 9:40 AM LODGING HOUSE KEEPER) Sodium 143 135 - 145 mmol/L [facility] Potassium, pl 4.3 3.3 - 4.9 mmol/L [facility] Chloride 108 97 - 110 mmol/L [facility] CO2 31 22 - 32 mmol/L [facility] Anion gap 4 2 - 15 mmol/L [facility] BUN 11 8 - 25 mg/dL [facility] Creatinine 0.78 0.60 - 1.10 mg/dL [facility] Glucose 122 70 - 199 mg/dL [facility] [...] Calcium 10.1 8.5 - 10.3 mg/dL [facility] Bilirubin, total 0.4 0.1 - 1.2 mg/dL [facility] Protein, pl 6.6 6.5 - 8.5 g/dL [facility] Albumin 4.2 3.5 - 5.0 g/dL [facility] Alk phos 67 40 - 130 Units/L [facility] ALT 13 7 - 45 Units/L [facility] AST 23 10 - 45 Units/L [facility] Blood specimen (specimen) 08/17/2019 9:40 AM LODGING HOUSE KEEPER 08/17/2019 10:05 AM LODGING HOUSE KEEPER Sabrina Willard CRAYON MOLDING MACHINE OPERATOR LAB BLOOD ORDERABLES Final R esult [facility] [place] [address] documented in this encounter Visit Diagnoses Diagnosis Neuro-endocrine carcinoma (HCC) Other malignant neoplasm of unspecified site documented in this encounter Orders Appointment Requests Count Last Ordered Date Fi rst Ordered Date ONCBCN LAB APPOINTMENT 1 08/17/2019 documented in this encounter Care Teams Chartered Wealth Manager Relationship Specialty Start Date End Date Julio César Briseno MD PCP - General 10/01/16 Eren Cr MD Referring Physician Medical Oncology 11/25/18 Yohana Bowen MD Radiation Oncologist Radiation Oncology 11/25/18 documented as of this encounter
--- OUTSIDE RECORDS SUMMARY | 2024-06-26 02:16 | XMS_ITS | Encounter Summary ---
Author Organization [facility] Healthcare Address [address] [place] [address] Care Team Providers Care Tie In Machine Operator Name Role Phone Julio César Briseno MD Primary Care Provider [phone] Eren Cr MD Unavailable Yohana Bowen MD Unavailable Encounter Details Date Type Department Care Team (Late st Contact Info) Description 10/27/2019 1:30 PM CDT Telemedicine [facility] Radiation Oncology [address] [place] [address] [place] [address] Yohana Bowen MD [address] [facility] [address] [place], [place] [id number] Neuroendocrine carcinoma (CMS/HCC) (Primary Dx); 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 clotrimazole-betamethasone (LOTRISONE) cream ??? coenzyme [id number] E (CO Q-10, WITH VIT E,) 100-5 [...] I was located in my office at [facility] in [place] and the patient was located at home [...] (HCC) documented in this encounter Care Teams Tie In Machine Operator Relationship Specialty Start Date End Date Julio César Briseno MD PCP - General 10/01/16 Eren Cr MD Referring Physician Medical Oncology 11/25/18 Yohana Bowen MD Radiation Oncologist Radiation Oncology 11/25/18 documented as of this encounter
--- OUTSIDE RECORDS SUMMARY | 2024-06-26 02:16 | XMS_ITS | Encounter Summary ---
Author Organization [facility] Address [address] [place] [address] Phone Care Team Providers Care Retail Sales Merchandiser Name Role Phone Julio César Briseno MD Primary Care Provider [phone] Eren Cr MD Unavailable [phone] Yohana Bowen MD Unavailable Encounter Details Date Type Department Care Team (Late st Contact Info) Description 09/29/2019 Telephone [facility] Oncology [address] [facility] 7th [place] [address] [place] [phone] Harjinder Quijano MA Social History Tobacco Use Types Packs/Day Years Used Date Smoking Tobacco: Never Smokeless Tobacco: Never Alcohol Use Standard Drinks/Week Comments Yes 1 (1 standard drink = 0.6 oz pur e alcohol) Comments No Sex and Gender Information Value Date Recorded Sex Assigned at Not on file Legal Sex Female 2:41 PM SOLAR SITE ASSESSMENT SPECIALIST Gender Identity Not on file Sexual [...] These situations will be decided on a vgzi-ae-lodz basis. ??? All visitors must follow hand-hygiene [...] For the latest updates, please go to [employer] website ([email or web address]) and click on the COVID19 link at [...] on filedocumented in this encounter Care Teams Retail Sales Merchandiser Relationship Specialty Start Date End Date Julio César Briseno MD PCP - General 10/01/16 Eren Cr MD Referring Physician Medical Oncology 11/25/18 Yohana Bowen MD Radiation Oncologist Radiation Oncology 11/25/18 documented as of this encounter
--- OUTSIDE RECORDS SUMMARY | 2024-06-26 02:16 | XMS_ITS | Encounter Summary ---
Author Organization [facility] Address [address] [place] [address] Phone Care Team Providers Care Vfx Artist Name Role Phone Julio César Briseno MD Primary Care Provider [phone] Eren Cr MD Unavailable [phone] Yohana Bowen MD Unavailable Encounter Details Date Type Department Care Team (Late st Contact Info) Description 10/28/[address] [facility] [address] [facility] Advanced Medicine 7th [place] [address] [place] [id number] Sabrina Willard, AGRICULTURAL ECONOMICS TEACHER [address] [place] [address] Social History Tobacco Use Types Packs/Day Years Used Date Smoking Tobacco: Never Smokeless Tobacco: Never Alcohol Use Standard Drinks/Week Comments Yes 1 (1 standard drink = 0.6 oz pur e alcohol) Comments No Sex and Gender Information Value Date Recorded Sex Assigned at Not on file Legal Sex Female 2:41 PM MARKING MACHINE TENDER Gender Identity Not on file [...] mmol/L CERNER BJ Comment:Testing performed by : [facility], [address] [place] [phone] Potassium, pl 4.0 3.3 - 4.9 mmol/L CERNER BJ Comment:Testing performed by : [facility], [address] [place] [phone] Chloride 105 97 - 110 mmol/L CERNER BJ Comment:Testing performed by : [facility], [address] [place] [phone] CO2 29 22 - 32 mmol/L CERNER [facility] Comment:Testing performed by : [facility], [address] [place] [phone] Anion gap 7 2 - 15 mmol/L CERNER [facility] Comment:Testing performed by : [facility], [address] [place] [address] BUN 12 8 - 25 mg/dL CERMINNIE [facility] Comment:Testing performed by : [facility], [address] [place] [phone] Creatinine 0.85 0.60 - 1.10 mg/dL CERNER BJ Comment:Testing performed by : [address] [address] Glucose 123 70 - 199 mg/dL CERNER [...] was last revised 2017. Testing performed by: [place] [id number] Calcium 10.9(H) 8.5 - 10.3 mg/dL CERNER BJ Comment:Testing performed by : [address] [phone] Bilirubin, total 0.4 0.1 - 1.2 mg/dL CERNER BJ Comment:Testing performed by : [address] [address] Protein, pl 6.6 6.5 - 8.5 g/dL CERNER BJ Comment:Testing performed by : [address] [address] Albumin 4.4 3.5 - 5.0 g/dL CERNER BJ Comment:Testing performed by : [address] [address] Alk phos 87 40 - 130 Units/L CERNER BJ Comment:Testing performed by : [place] [id number] ALT 13 7 - 45 Units/L CERNER BJ Comment:Testing performed by : [address] [address] AST 19 10 - 45 Units/L CERNER BJ Comment:Testing performed by : [facility], [address] [place] [phone] Blood specimen (specimen) 02/15/2020 2:05 PM CDT 02/15/2020 2:11 PM CDT Sabrina Willard NP LAB BLOOD ORDERABLES Final R esult JASON BLACK [facility] Department [place] [address] * (ABNORMAL) CBC with auto differential (02/15/2020 2:05 PM CDT) WBC 4.0 3.8 - 9.8 K/cumm JASON BLACK Comment:Testing performed by : [address] [address] Hgb 12.1 12.1 - 15.1 g/dL JASON BLACK Comment:Testing performed by : [facility], [address] [place] [address] Hct 35.2(L) 36.1 - 44.3 % JASON BLACK Comment:Testing performed by : [address] [address] Plt 117(L) 140 - 440 K/cumm JASON BLAKC Comment:Testing performed by : [address] [address] MPV 7.3 6.8 - 10.4 fL JASON BLACK Comment:Testing performed by : [facility], [address] [place] [address] RBC 3.75(L) 3.90 - 5.00 M/cumm JASON BLACK Comment:Testing performed by : [address] [address] MCV 93.9 80.0 - 97.6 fL JASON BLACK Comment:Testing performed by : [address] [address] MCH 32.3 26.7 - 33.7 pg JASON BLACK Comment:Testing performed by : [facility], [address] [facility] [address] MCHC 34.4 32.7 - 35.5 g/dL JASON [facility] Comment:Testing performed by : [facility], [address] [place] [phone] RDW CV 12.8 11.8 - 14.6 % JASON [facility] Comment:Testing performed by : [facility], [address] [place] [phone] NRBC abs 0.00 0.00 - 0.01 K/cumm JASON [facility] Comment:Testing performed by : [facility], [address] [place] [phone] Blood specimen (specimen) 02/15/2020 2:05 PM CDT 02/15/2020 2:11 PM CDT Sabrina Willard NP LAB BLOOD ORDERABLES Final R esult JASON [facility] [place] [address] * (ABNORMAL) Chromogranin A (02/15/2020 12:05 PM CDT) Chromogranin A 249(H) <93 ng/mL J[facility]ON [facility] Comment: Impaired renal or hepatic [...] absence of malignant disease. Test Performed by: [facility] [address] [place] [address] Band Cutting Machine Operator: Immanuel Novak M.D. Ph.D.; IA# [id number] Blood specimen (specimen) 02/15/2020 12:05 PM CDT 02/15/2020 2:22 PM CDT Sabrina Willard NP LAB BLOOD ORDERABLES Final R esult [facility] [place] [address] * (ABNORMAL) Comprehensive metabolic panel (12/21/2019 1:40 PM CDT) Sodium 140 135 - 145 mmol/L JASON [facility] Comment:Testing performed by : [facility], [address] [place] [address] Potassium, pl 4.7 3.3 - 4.9 mmol/L J[facility]ON [facility] Comment:Testing performed by : [facility], [address] [place] [address] Chloride 105 97 - 110 mmol/L [facility] Comment:Testing performed by : [address] [address] CO2 28 22 - 32 mmol/L [facility] Comment:Testing performed by : [facility], [address] [place] [address] Anion gap 7 2 - 15 mmol/L [facility] Comment:Testing performed by : [address] [address] BUN 16 8 - 25 mg/dL [facility]ON [facility] Comment:Testing performed by : [address] [address] Creatinine 0.82 0.60 - 1.10 mg/dL [facility]ON [facility] Comment:Testing performed by : [address] [address] Glucose 124 70 - 199 mg/dL [facility] [...] was last revised 2017. Testing performed by: [facility], [address] [place] [address] Calcium 10.9(H) 8.5 - 10.3 mg/dL CERNER [facility] Comment:Testing performed by : [facility], [address] [place] [address] Bilirubin, total 0.5 0.1 - 1.2 mg/dL CERNER BJ Comment:Testing performed by : [facility], [address] [place] [address] Protein, pl 7.0 6.5 - 8.5 g/dL CERNER BJ Comment:Testing performed by : [facility], [address] [place] [address] Albumin 4.6 3.5 - 5.0 g/dL CERNER BJ Comment:Testing performed by : [address] [address] Alk phos 88 40 - 130 Units/L CERMINNIE BJ Comment:Testing performed by : [address] [address] ALT 15 7 - 45 Units/L CERMINNIE BJ Comment:Testing performed by : [facility], [address] [place] [address] AST 20 10 - 45 Units/L CERNER BJ Comment:Testing performed by : [facility], [address] [place] [address] Blood specimen (specimen) 12/21/2019 1:40 PM CDT 12/21/2019 1:41 PM CDT us Sabrina Willard NP LAB BLOOD ORDERABLES Final R esult [facility] Department [place] [address] * (ABNORMAL) CBC with auto differential (12/21/2019 1:40 PM CDT) WBC 4.8 3.8 - 9.8 K/cumm CERNER BJ Comment:Testing performed by : [facility], [address] [place], [place] [phone] Hgb 12.7 12.1 - 15.1 g/dL CERNER BJ Comment:Testing performed by : [facility], [address] [place], [place] [phone] Hct 36.6 36.1 - 44.3 % CERNER BJ Comment:Testing performed by : [place] [id number] Plt 114(L) 140 - 440 K/cumm CERNER BJ Comment:Testing performed by : [place] [id number] MPV 7.5 6.8 - 10.4 fL CERNER BJ Comment:Testing performed by : [facility], [address] [place], [place] [phone] RBC 3.84(L) 3.90 - 5.00 M/cumm CERNER BJ Comment:Testing performed by : [place] [id number] MCV 95.2 80.0 - 97.6 fL CERNER BJ Comment:Testing performed by : [place] [id number] MCH 33.0 26.7 - 33.7 pg CERNER BJ Comment:Testing performed by : [place] [id number] MCHC 34.6 32.7 - 35.5 g/dL CERNER BJ Comment:Testing performed by : [place] [id number] RDW CV 12.9 11.8 - 14.6 % CERNER BJ Comment:Testing performed by : [place] [id number] NRBC abs 0.00 0.00 - 0.01 K/cumm CERNER BJ Comment:Testing performed by : [facility], [address] [place] [phone] Blood specimen (specimen) 12/21/2019 1:40 PM CDT 12/21/2019 1:41 PM CDT Sabrina Willard NP LAB BLOOD ORDERABLES Final R esult Performing Organization Address [facility] de Phone Number [facility] [place] [address] * (ABNORMAL) Chromogranin A (12/21/2019 1:39 PM CDT) Chromogranin A 238(H) <93 ng/mL JASON [facility] Comment: Impaired renal or hepatic [...] absence of malignant disease. Test Performed by: [address] [address] Band Cutting Machine Operator: Immanuel Novak M.D. Ph.D.; CLIA# [id number] Blood specimen (specimen) 12/21/2019 1:39 PM CDT 12/21/2019 2:23 PM CDT Sabrina Willard NP LAB BLOOD ORDERABLES Final R esult Performing Organization Address [facility] Co de Phone Number [facility] [place] [address] * (ABNORMAL) Comprehensive metabolic panel (11/23/2019 3:10 PM CDT) Sodium 139 135 - 145 mmol/L CERNER BJ Comment:Testing performed by : [facility], [address] [place] [phone] Potassium, pl 3.5 3.3 - 4.9 mmol/L CERNER BJ Comment:Testing performed by : [facility], [address] [place] [address] Chloride 103 97 - 110 mmol/L CERNER BJ Comment:Testing performed by : [facility], [address] [place] [phone] CO2 27 22 - 32 mmol/L CERNER BJ Comment:Testing performed by : [facility], [address] [place] [phone] Anion gap 9 2 - 15 mmol/L CERNER BJ Comment:Testing performed by : [facility], [address] [place] [address] BUN 13 8 - 25 mg/dL CERNER BJ Comment:Testing performed by : [facility], [address] [place] [address] Creatinine 0.75 0.60 - 1.10 mg/dL CERNER BJ Comment:Testing performed by : [facility], [address] [place] [address] Glucose 138 70 - 199 mg/dL CERNER [...] was last revised 2017. Testing performed by: [facility], [address] [place] [address] Calcium 9.8 8.5 - 10.3 mg/dL CERNER BJ Comment:Testing performed by : [facility], [address] [place] [address] Bilirubin, total 0.5 0.1 - 1.2 mg/dL JASON BLACK Comment:Testing performed by : [facility], [address] [place] [address] Protein, pl 6.3(L) 6.5 - 8.5 g/dL JASON BLACK Comment:Testing performed by : [facility], [address] [place] [address] Albumin 4.2 3.5 - 5.0 g/dL JASON BLACK Comment:Testing performed by : [facility], [address] [place] [address] Alk phos 91 40 - 130 Units/L JASON BLACK Comment:Testing performed by : [address] [address] ALT 16 7 - 45 Units/L JASON BLACK Comment:Testing performed by : [facility], [address] [place] [phone] AST 20 10 - 45 Units/L JASON BLACK Comment:Testing performed by : [facility], [address] [place] [address] Blood specimen (specimen) 11/23/2019 3:10 PM CDT 11/23/2019 3:12 PM CDT Sabrina Willard NP LAB BLOOD ORDERABLES Final R esult Performing Organization Address City/State/[facility] Co de Phone Number JASON [facility] Department of Laboratories [place], [place] [id number] * (ABNORMAL) CBC with auto differential (11/23/2019 3:10 PM CDT) WBC 3.9 3.8 - 9.8 K/cumm JASON BLACK Comment:Testing performed by : [address] [address] Hgb 12.4 12.1 - 15.1 g/dL JASON BLACK Comment:Testing performed by : [facility], [address] [place], [place] [phone] Hct 34.9(L) 36.1 - 44.3 % CERNER BJ Comment:Testing performed by : [facility], [address] [place] [address] Plt 99(L) 140 - 440 K/cumm CERNER BJ Comment:Testing performed by : [facility], [address] [place], [place] [phone] MPV 7.5 6.8 - 10.4 fL CERNER BJ Comment:Testing performed by : [facility], [address] [place], [place] [phone] RBC 3.69(L) 3.90 - 5.00 M/cumm CERNER BJ Comment:Testing performed by : [facility], [address] [place], [place] [phone] MCV 94.4 80.0 - 97.6 fL CERNER BJ Comment:Testing performed by : [place] [id number] MCH 33.5 26.7 - 33.7 pg CERNER BJ Comment:Testing performed by : [facility], [address] [place], [place] [phone] MCHC 35.5 32.7 - 35.5 g/dL CERNER BJ Comment:Testing performed by : [facility], [address] [place], [place] [phone] RDW CV 13.4 11.8 - 14.6 % CERNER BJ Comment:Testing performed by : [place] [id number] NRBC abs 0.01 0.00 - 0.01 K/cumm CERNER BJ Comment:Testing performed by : [facility], [address] [place] [phone] Blood specimen (specimen) 11/23/2019 3:10 PM CDT 11/23/2019 3:12 PM CDT Sabrina Willard NP LAB BLOOD ORDERABLES Final R esult JASON BLACK [facility] [place] [address] * (ABNORMAL) Chromogranin A (11/23/2019 3:10 PM [...] of malignant disease. Test Performed by: [facility] [address] [place] [address] Band Cutting Machine Operator: Immanuel Novak M.D. Ph.D.; CLIA# [id number] Blood specimen (specimen) 11/23/2019 3:10 PM CDT 11/23/2019 5:06 PM CDT us Sabrina Willard AGRICULTURAL ECONOMICS TEACHER LAB BLOOD ORDERABLES Final R esult JASON SOFIA [facility] [place] [address] documented in this encounter Visit Diagnoses Diagnosis Malignant neoplasm metastatic to liver (HCC)- Primary Neuroendocrine carcinoma (HCC) Other malignant neoplasm of unspecified site documented in this encounter Orders Appointment Requests Count Last Ordered Date Fi rst Ordered Date ONCBCN CLINIC APPOINTMENT REQUEST 1 020 ONCBCN INJECTION APPOINTMENT REQUEST 3 02/0511/23/2019 ONCBCN LAB APPOINTMENT 3 02/15/202011/22 documented in this encounter Care Teams Vfx Artist Relationship Specialty Start Date End Date Julio César Briseno MD PCP - General 10/01/16 Eren Cr MD Referring Physician Medical Oncology 11/25/18 Yohana Bowen MD Radiation Oncologist Radiation Oncology 11/25/18 documented as of this encounter
--- OUTSIDE RECORDS SUMMARY | 2024-06-26 02:16 | XMS_ITS | Encounter Summary ---
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) Procedures [place] OCTREOTIDE INJECTION, DEPOT Octreotide 28 Day Cycles - Carcinoid Eren Cr MD [address] [place] [address] Phone: tel: fax: [facility] Cancer [address] [address] Phone: tel: fax: Referral ID Status Reason Start Date Expiration Date V isits Requested Visits Authorized [id number] Authorized 11/28/2017 02/05/2025 1 150 Encounter Details Date Type Department Care Team (Late st Contact Info) Description 09/30/2019 2:00 PM CDT Lab [facility] Oncology [address] [place] [address] [place] [id number] Neuroendocrine carcinoma (CMS/HCC); Malignant neoplasm metastatic to liver (CMS/HCC) Social History Tobacco Use Types Packs/Day Years Used Date Smoking Tobacco: Never Smokeless Tobacco: Never Alcohol Use Standard Drinks/Week Comments Yes 1 (1 standard drink = 0.6 oz pur e alcohol) Comments No Sex and Gender Information Value Date Recorded Sex Assigned at Not on file Legal Sex Female 2:41 PM TASSEL CLIPPER Gender Identity Not on file Sexual Orientation [...] abs 3.8 1.8 - 6.6 K/cumm [facility] Comment:Testing performed by : [facility], [address] [place] [phone] Lymphocyte abs 0.5(L) 1.2 - 3.3 K/cumm [facility] Comment:Testing performed by : [facility], [address] [place] [phone] Monocyte abs 0.5 0.2 - 1.2 K/cumm [facility] Comment:Testing performed by : [facility], [address] [place] [phone] Eosinophil abs 0.1 0.0 - 0.5 K/cumm [facility] Comment:Testing performed by : [facility], [address] [place] [phone] Basophil abs 0.0 0.0 - 0.2 K/cumm [facility] Comment:Testing performed by : [facility], [address] [place] [phone] Neutrophil pct 76.9 % [facility] Comment: Interpretive Data Percent cell count reference ranges are not reported, since discordance with absolute values may lead to misinterpretation of CBC data. Current Interpretive Data was last revised on 2017. Testing performed by: [facility], [address] [place] [phone] Lymphocyte pct 10.4 % [facility] Comment: Interpretive Data Percent cell count reference ranges are not reported, since discordance with absolute values may lead to misinterpretation of CBC data. Current Interpretive Data was last revised on 2017. Testing performed by: [facility], [address] [place] [phone] Monocyte pct 11.0 % [facility] Comment:Testing performed by : [facility], [address] [place] [phone] Eosinophil pct 1.3 % [facility] Comment:Testing performed by : [facility], [address] [place] [phone] Basophil pct 0.4 % [facility] Comment:Testing performed by : [address] [phone] Blood specimen (specimen) 09/30/2019 1:58 PM CDT 09/30/2019 2:01 PM CDT Eren Cr MD LAB BLOOD ORDERABLES Final Re sult [facility] [place] [address] * (ABNORMAL) CBC with auto differential (09/30/2019 1:58 PM CDT) WBC 4.9 3.8 - 9.8 K/cumm [facility] Comment:Testing performed by : [facility], [address] [place] [phone] Hgb 11.9(L) 12.1 - 15.1 g/dL [facility] Comment:Testing performed by : [address] [phone] Hct 33.7(L) 36.1 - 44.3 % [facility] Comment:Testing performed by : [address] [address] Plt 106(L) 140 - 440 K/cumm [facility] Comment:Testing performed by : [facility], [address] [place] [phone] MPV 7.3 6.8 - 10.4 fL [facility] Comment:Testing performed by : [address] [address] RBC 3.66(L) 3.90 - 5.00 M/cumm [facility]MIN[facility]IE [facility] Comment:Testing performed by : [address] [address] MCV 92.1 80.0 - 97.6 fL [facility]IE [facility] Comment:Testing performed by : [facility], [address] [place] [phone] MCH 32.4 26.7 - 33.7 pg [facility] Comment:Testing performed by : [address] [address] MCHC 35.2 32.7 - 35.5 g/dL [facility] Comment:Testing performed by : [address] [address] RDW CV 15.3(H) 11.8 - 14.6 % [facility] Comment:Testing performed by : [facility], [address] [place] [phone] NRBC abs 0.00 0.00 - 0.01 K/cumm JASON BLACK Comment:Testing performed by : [facility], [address] [place] [phone] Blood specimen (specimen) 09/30/2019 1:58 PM CDT 09/30/2019 2:01 PM CDT Eren Cr MD LAB BLOOD ORDERABLES Final Re sult JASON BLACK [facility] [place] [address] * Comprehensive metabolic panel (09/30/2019 1:58 PM CDT) Sodium 144 135 - 145 mmol/L JASON BLACK Comment:Testing performed by : [facility], [address] [place] [phone] Potassium, pl 4.6 3.3 - 4.9 mmol/L JASON BLACK Comment:Testing performed by : [facility], [address] [place] [phone] Chloride 103 97 - 110 mmol/L JASON BLACK Comment:Testing performed by : [address] [address] CO2 27 22 - 32 mmol/L JASON BLACK Comment:Testing performed by : [facility], [address] [place] [phone] Anion gap 14 2 - 15 mmol/L JASON BLACK Comment:Testing performed by : [facility], [address] [place] [phone] BUN 12 8 - 25 mg/dL JASON BLACK Comment:Testing performed by : [facility], [address] [place] [phone] Creatinine 0.77 0.60 - 1.10 mg/dL JASON BLACK Comment:Testing performed by : [address] [phone] Glucose 100 70 - 199 mg/dL JASON [...] performed by: [facility], [address] [place] [address] Calcium 10.1 8.5 - 10.3 mg/dL [facility] Comment:Testing performed by : [address] Bilirubin, total 0.4 0.1 - 1.2 mg/dL [facility] Comment:Testing performed by : [address] [address] Protein, pl 6.6 6.5 - 8.5 g/dL [facility] Comment:Testing performed by : [address] [address] Albumin 4.4 3.5 - 5.0 g/dL [facility] Comment:Testing performed by : [address] [address] Alk phos 72 40 - 130 Units/L [facility] Comment:Testing performed by : [address] [address] ALT 13 7 - 45 Units/L [facility] Comment:Testing performed by : [address] [address] AST 20 10 - 45 Units/L [facility] Comment:Testing performed by : [address] [address] Blood specimen (specimen) 09/30/2019 1:58 PM CDT 09/30/2019 2:01 PM CDT Eren Cr MD LAB BLOOD ORDERABLES Final Re sult Performing Organization Address [facility] de Phone Number JASON BLACK [facility] [place] [address] * (ABNORMAL) Chromogranin A (09/30/2019 1:58 PM CDT) Chromogranin A 161(H) <93 ng/mL [facility] Comment: Impaired renal or hepatic function or treatment with proton pump inhibitors may result in artifactual elevations of Chromogranin A. ADDITIONAL INFORMATION This test was developed and its performance characteristics determined by [facility] in a manner consistent with [...] absence of malignant disease. Test Performed by: [id number] [place] [address] 3D Modeler: Immanuel Novak M.D. Ph.D.; CLIA# [id number] Blood specimen (specimen) 09/30/2019 1:58 PM CDT 09/30/2019 4:09 PM CDT Eren Cr MD LAB BLOOD ORDERABLES Final Re sult Performing Organization Address [facility] Co de Phone Number [facility]ASON BLACK [facility] [place] [address] documented in this encounter Visit Diagnoses Diagnosis Neuroendocrine carcinoma (HCC) Other malignant neoplasm of unspecified site Malignant neoplasm metastatic to liver (HCC) documented in this encounter Orders Appointment Requests Count Last Ordered Date Fi rst Ordered Date ONCBCN LAB APPOINTMENT 1 09/30/2019 documented in this encounter Care Teams Archivist Nonprofit Foundation Relationship Specialty Start Date End Date Julio César Briseno MD PCP - General 10/01/16 Eren Cr MD Referring Physician Medical Oncology 11/25/18 Yohana Bowen MD Radiation Oncologist Radiation Oncology 11/25/18 documented as of this encounter
--- OUTSIDE RECORDS SUMMARY | 2024-06-26 02:16 | XMS_ITS | Encounter Summary ---
Author Organization [facility] Address [address] [place] [address] Phone Care Team Providers Care Spool Carrier Name Role Phone Julio César Briseno MD Primary Care Provider [phone] Eren Cr MD Unavailable Yohana Bowen MD Unavailable Reason for Visit * Episode Based Medications (Routine) - Authorized Specialty Diagnoses / Procedures Referred By Evelyne t Referred To Contact Oncology Diagnoses Neuroendocrine carcinoma (HCC) Malignant neoplasm metastatic to liver (HCC) Procedures [place] OCTREOTIDE INJECTION, DEPOT Octreotide 28 Day Cycles - Carcinoid Eren Cr MD [address] [facility] [address] [place] [address] Phone: tel: fax: [facility] Cancer [address] [address] Phone: tel: fax: Referral ID Status Reason Start Date Expiration Date V isits Requested Visits Authorized [id number] Authorized 11/28/2017 02/05/2025 1 150 Encounter Details Date Type Department Care Team (Late st Contact Info) Description 09/02/2019 2:00 PM BALANCE TRUER Lab [facility] Oncology [facility] 7th [place] [address] [place] [address] Neuroendocrine carcinoma (CMS/HCC); Malignant neoplasm metastatic to liver (CMS/HCC) Social History Tobacco Use Types Packs/Day Years Used Date Smoking Tobacco: Never Smokeless Tobacco: Never Alcohol Use Standard Drinks/Week Comments Yes 1 (1 standard drink = 0.6 oz pur e alcohol) Comments No Sex and Gender Information Value Date Recorded Sex Assigned at Not on file Legal Sex Female 2:41 PM BALANCE TRUER Gender Identity Not on file Sexual Orientation Straight 02/19/2021 9: 29 AM CDT Occupation Industry Job Start Date Job End Date retired Not on file Not on file Not on file documented as of this encounter Plan of Treatment Not on file documented as of this encounter Procedures Procedure Name Priority Date/Time Associated Diagnosis Comments DIFFERENTIAL AUTO Routine 09/02/2019 2:1 4 PM BALANCE TRUER Neuroendocrine carcinoma (CMS/HCC) Malignant neoplasm metastatic to liver (CMS/HCC) CBC WITH AUTO DIFFERENTIAL Routine 09/02/2019 2:14 PM BALANCE TRUER Neuroendocrine carcinoma (CMS/HCC) Malignant neoplasm metastatic to liver (CMS/HCC) CHROMOGRANIN A Routine 09/02/2019 2:00 PM BALANCE TRUER Neuroendocrine carcinoma (CMS/HCC) Malignant neoplasm metastatic to liver (CMS/HCC) COMPREHENSIVE METABOLIC PANEL Routine 09/02/2019 2:00 PM BALANCE TRUER Neuroendocrine carcinoma (CMS/HCC) Malignant neoplasm metastatic to liver (CMS/HCC) documented in this encounter Results * (ABNORMAL) Differential, auto (09/02/2019 2:14 PM BALANCE TRUER) Neutrophil abs 2.5 1.8 - 6.6 K/cumm JASON BLACK Comment:Testing performed by : [facility], [address] [place] [phone] Lymphocyte abs 0.4(L) 1.2 - 3.3 K/cumm JASON BLACK Comment:Testing performed by : [facility], [facility] [address] Monocyte abs 0.5 0.2 - 1.2 K/cumm JASON LEAVITT Comment:Testing performed by : [facility], [address] [place] [phone] Eosinophil abs 0.0 0.0 - 0.5 K/cumm [facility] Comment:Testing performed by : [facility], [address] [place] [phone] Basophil abs 0.0 0.0 - 0.2 K/cumm [facility] Comment:Testing performed by : [facility], [address] [place] [phone] Neutrophil pct 72.8 % [facility] Comment: Interpretive Data Percent cell count reference ranges are not reported, since discordance with absolute values may lead to misinterpretation of CBC data. Current Interpretive Data was last revised on 2017. Testing performed by: [facility], [address] [place] [phone] Lymphocyte pct 11.5 % [facility] Comment: Interpretive Data Percent cell count reference ranges are not reported, since discordance with absolute values may lead to misinterpretation of CBC data. Current Interpretive Data was last revised on 2017. Testing performed by: [facility], [address] [place] [phone] Monocyte pct 14.4 % [facility] Comment:Testing performed by : [facility], [address] [place] [phone] Eosinophil pct 0.9 % [facility] Comment:Testing performed by : [address] [phone] Basophil pct 0.4 % [facility] Comment:Testing performed by : [facility], [address] [place] [phone] Blood specimen (specimen) 09/02/2019 2:14 PM BALANCE TRUER 09/02/2019 2:15 PM BALANCE TRUER us Eren Cr MD LAB BLOOD ORDERABLES Final Re sult [facility] Department [place] [address] * (ABNORMAL) CBC with auto differential (09/02/2019 2:14 PM BALANCE TRUER) WBC 3.5(L) 3.8 - 9.8 K/cumm [facility] Comment:Testing performed by : [facility], [address] [place], [place] [phone] Hgb 13.0 12.1 - 15.1 g/dL [facility] Comment:Testing performed by : [place] [phone] Hct 37.6 36.1 - 44.3 % [facility] Comment:Testing performed by : [place] [phone] Plt 94(L) 140 - 440 K/cumm [facility] Comment:Testing performed by : [place] [address] MPV 7.7 6.8 - 10.4 fL [facility] Comment:Testing performed by : [place] [address] RBC 4.19 3.90 - 5.00 M/cumm [facility] Comment:Testing performed by : [place] [phone] MCV 89.8 80.0 - 97.6 fL [facility] Comment:Testing performed by : [place] [address] MCH 31.1 26.7 - 33.7 pg [facility] Comment:Testing performed by : [place] [phone] MCHC 34.6 32.7 - 35.5 g/dL [facility] Comment:Testing performed by : [place] [phone] RDW CV 15.0(H) 11.8 - 14.6 % [facility] Comment:Testing performed by : [place] [phone] NRBC abs 0.00 0.00 - 0.01 K/cumm [facility] Comment:Testing performed by : [place] [phone] Blood specimen (specimen) 09/02/2019 2:14 PM BALANCE TRUER 09/02/2019 2:15 PM BALANCE TRUER us Eren Cr MD LAB BLOOD ORDERABLES Final Re sult [facility] Department [place] [address] * (ABNORMAL) Comprehensive metabolic panel (09/02/2019 2:00 PM BALANCE TRUER) Sodium 141 135 - 145 mmol/L [facility] Potassium, pl 3.5 3.3 - 4.9 mmol/L [facility] Chloride 106 97 - 110 mmol/[facility] CO2 27 22 - 32 mmol/L [facility] Anion gap 8 2 - 15 mmol/L [facility] BUN 16 8 - 25 mg/dL [facility] Creatinine 0.92 0.60 - 1.10 mg/dL [facility] Glucose 113 70 - 199 mg/dL [...] Calcium 10.5(H) 8.5 - 10.3 mg/dL [facility] Bilirubin, total 0.5 0.1 - 1.2 mg/dL [facility] Protein, pl 7.3 6.5 - 8.5 g/dL [facility] Albumin 4.3 3.5 - 5.0 g/dL [facility] Alk phos 83 40 - 130 Units/L [facility] ALT 15 7 - 45 Units/L [facility] AST 25 10 - 45 Units/L [facility] Blood specimen (specimen) 09/02/2019 2:00 PM BALANCE TRUER 09/02/2019 2:26 PM BALANCE TRUER Eren Cr MD LAB BLOOD ORDERABLES Final Re sult Performing Organization Address [facility] Co de Phone Number [facility] [place] [address] * (ABNORMAL) Chromogranin A (09/02/2019 2:00 PM BALANCE TRUER) Chromogranin A 196(H) <93 ng/mL [facility] Comment: Impaired renal or hepatic function or treatment with proton pump inhibitors may result in artifactual elevations of Chromogranin A. ADDITIONAL INFORMATION This test was developed and its performance characteristics determined by [facility] in a manner consistent with CLIA [...] absence of malignant disease. Test Performed by: [facility] [place] [address] Accounting Systems Manager: Immanuel Novak M.D. Ph.D.; CLIA# [id number] Blood specimen (specimen) 09/02/2019 2:00 PM BALANCE TRUER 09/02/2019 4:11 PM BALANCE TRUER Eren Cr MD LAB BLOOD ORDERABLES Final Re sult Performing Organization Address [facility]/ZIP Co de Phone Number [facility] [place] [address] documented in this encounter Visit Diagnoses Diagnosis Neuroendocrine carcinoma (HCC) Other malignant neoplasm of unspecified site Malignant neoplasm metastatic to liver (HCC) documented in this encounter Orders Appointment Requests Count Last Ordered Date Fi rst Ordered Date ONCBCN LAB APPOINTMENT 1 09/02/2019 documented in this encounter Care Teams Spool Carrier Relationship Specialty Start Date End Date Julio César Briseno MD PCP - General 10/01/16 Eren Cr MD Referring Physician Medical Oncology 11/25/18 Yohana Bowen MD Radiation Oncologist Radiation Oncology 11/25/18 documented as of this encounter
--- OUTSIDE RECORDS SUMMARY | 2024-06-26 02:16 | XMS_ITS | Encounter Summary ---
Author Organization [facility] Address [address] [place] [address] Care Team Providers Care Airport Driver Name Role Phone Julio César Briseno MD Primary Care Provider [phone] Eren Cr MD Unavailable [phone] Yohana Bowen MD Unavailable Encounter Details [...] on file Legal Sex Female 2:41 PM DISPATCHER MAINTENANCE Gender Identity Not on file Sexual Orientation Straight 02/19/2021 9: 29 AM CDT Occupation Industry Job Start Date Job End Date retired Not on file Not on file Not on file documented as of this encounter Plan of Treatment Not on file documented as of this encounter Procedures Procedure Name Priority Date/Time Associated Diagnosis Comments RAD ONC ARIA SESSION SUMMARY 08/05/2019 8:02 AM DISPATCHER MAINTENANCE documented in this encounter Results * RAD ONC ARIA SESSION SUMMARY (08/05/2019 8:02 AM DISPATCHER MAINTENANCE) Course Name Lutathera ARIA Course Plan Date [...] Dose (cGy) 800 ARIA 08/05/2019 8:02 AM DISPATCHER MAINTENANCE us Not In File Miscellaneous RADIATION ONCOLOGY ORD ERABLES Final Result ARIA documented in this encounter Visit Diagnoses Not on filedocumented in this encounter Care Teams Airport Driver Relationship Specialty Start Date End Date Julio César Briseno MD PCP - General 10/01/16 Eren Cr MD Referring Physician Medical Oncology 11/25/18 Yohana Bowen MD Radiation Oncologist Radiation Oncology 11/25/18 documented as of this encounter
--- OUTSIDE RECORDS SUMMARY | 2024-06-26 02:16 | XMS_ITS | Encounter Summary ---
Author Organization [facility] Address [address] [place] [address] Phone Care Team Providers Care Outbound Call Center Representative Name Role Phone Julio César Briseno MD Primary Care Provider [phone] Eren Cr MD Unavailable [phone] Yohana Bowen MD Unavailable Reason for Visit * Reason Comments Injections * Episode Based Medications (Routine) - Authorized Specialty Diagnoses / Procedures Referred By Contellen t Referred To Contact Oncology Diagnoses Neuroendocrine carcinoma (HCC) Malignant neoplasm metastatic to liver (HCC) Procedures [place] OCTREOTIDE INJECTION, DEPOT Octreotide 28 Day Cycles - Carcinoid Eren Cr MD [address] [address] [place] [address] Phone: tel: fax: [address] [address] Phone: tel: fax: Referral ID Status Reason Start Date Expiration Date V isits Requested Visits Authorized [id number] Authorized 11/28/2017 02/05/2025 1 150 Encounter Details Date Type Department Care Team (Late st Contact Info) Description 10/27/2019 11:45 AM CDT Infusion [facility] Oncology [address] [place] [address] for Advanced Medicine 7th [place] [address] Neuroendocrine carcinoma (CMS/HCC) (Primary Dx); Malignant neoplasm metastatic to liver (CMS/HCC) Social History Tobacco Use Types Packs/Day Years Used Date Smoking Tobacco: Never Smokeless Tobacco: Never Alcohol Use Standard Drinks/Week Comments Yes 1 (1 standard drink = 0.6 oz pur e alcohol) Comments No Sex and Gender Information Value Date Recorded Sex Assigned at Not on file Legal Sex Female 2:41 PM HUMAN RESOURCE INTERN Gender Identity Not on file Sexual [...] Body Mass Index 31.42 07/29/2019 6:18 AM HUMAN RESOURCE INTERN documented in this encounter Nursing Notes * [...] 10/07 documented in this encounter Care Teams Outbound Call Center Representative Relationship Specialty Start Date End Date Julio César Briseno MD PCP - General 10/01/16 Eren Cr MD Referring Physician Medical Oncology 11/25/18 Yohana Bowen MD Radiation Oncologist Radiation Oncology 11/25/18 documented as of this encounter
--- OUTSIDE RECORDS SUMMARY | 2024-06-26 02:16 | XMS_ITS | Encounter Summary ---
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 Gender Identity Not on file Sexual [...] Comment:Testing performed by : [facility], [address] [place] [phone] Lymphocyte abs 0.3(L) 1.2 - 3.3 K/cumm JASON BLACK Comment:Testing performed by : [facility], [address] [place] [phone] Monocyte abs 0.4 0.2 - 1.2 K/cumm CERNER BJ Comment:Testing performed by : [facility], [address] [place] [phone] Eosinophil abs 0.1 0.0 - 0.5 K/cumm CERNER BJ Comment:Testing performed by : [facility], [address] [place] [phone] Basophil abs 0.0 0.0 - 0.2 K/cumm CERMINNIE BJ Comment:Testing performed by : [facility], [address] [place] [phone] Neutrophil pct 78.9 % CERNER BJ Comment: Interpretive Data Percent cell count reference ranges are not reported, since discordance with absolute values may lead to misinterpretation of CBC data. Current Interpretive Data was last revised on 2017. Testing performed by: [facility], [address] [place] [phone] Lymphocyte pct 8.5 % CERNER BJ Comment: Interpretive Data Percent cell count reference ranges are not reported, since discordance with absolute values may lead to misinterpretation of CBC data. Current Interpretive Data was last revised on 2017. Testing performed by: [facility], [address] [place] [phone] Monocyte pct 10.7 % CERNER BJ Comment:Testing performed by : [facility], [address] [place] [phone] Eosinophil pct 1.5 % CERNER BJ Comment:Testing performed by : [facility], [address] [place] [phone] Basophil pct 0.4 % CERNER BJ Comment:Testing performed by : [facility], [address] [place] [phone] Blood specimen (specimen) 11/23/2019 3:10 PM CDT 11/23/2019 3:12 PM CDT us Sabrina Willard NP LAB BLOOD ORDERABLES Final R esult [facility] Department [place] [address] * (ABNORMAL) CBC with auto differential (11/23/2019 3:10 PM CDT) WBC 3.9 3.8 - 9.8 K/cumm CERNER BJ Comment:Testing performed by : [facility], [address] [place], [place] [phone] Hgb 12.4 12.1 - 15.1 g/dL CERNER BJ Comment:Testing performed by : [facility], [address] [place], [place] [phone] Hct 34.9(L) 36.1 - 44.3 % CERNER BJ Comment:Testing performed by : [place] [address] Plt 99(L) 140 - 440 K/cumm CERNER BJ Comment:Testing performed by : [address] [phone] MPV 7.5 6.8 - 10.4 fL CERNER BJ Comment:Testing performed by : [facility], [address] [place], [place] [phone] RBC 3.69(L) 3.90 - 5.00 M/cumm CERNER BJ Comment:Testing performed by : [place] [phone] MCV 94.4 80.0 - 97.6 fL CERNER BJ Comment:Testing performed by : [address] [phone] MCH 33.5 26.7 - 33.7 pg CERNER BJ Comment:Testing performed by : [facility], [address] [place] [phone] MCHC 35.5 32.7 - 35.5 g/dL CERNER BJ Comment:Testing performed by : [place] [id number] RDW CV 13.4 11.8 - 14.6 % CERNER BJ Comment:Testing performed by : [address] [phone] NRBC abs 0.01 0.00 - 0.01 K/cumm CERNER BJ Comment:Testing performed by : [facility], [address] [place] [phone] Blood specimen (specimen) 11/23/2019 3:10 PM CDT 11/23/2019 3:12 PM CDT Sabrina Willard NP LAB BLOOD ORDERABLES Final [facility] Department [place] [address] * (ABNORMAL) Comprehensive metabolic panel (11/23/2019 3:10 PM CDT) Sodium 139 135 - 145 mmol/L JASON BLACK Comment:Testing performed by : [facility], [address] [place] [phone] Potassium, pl 3.5 3.3 - 4.9 mmol/L JASON BLACK Comment:Testing performed by : [facility], [address] [place] [phone] Chloride 103 97 - 110 mmol/L JASON BLACK Comment:Testing performed by : [address] [phone] CO2 27 22 - 32 mmol/L JASON BLACK Comment:Testing performed by : [facility], [address] [place] [phone] Anion gap 9 2 - 15 mmol/L JASON BLACK Comment:Testing performed by : [address] [phone] BUN 13 8 - 25 mg/dL JASON BLACK Comment:Testing performed by : [address] [phone] Creatinine 0.75 0.60 - 1.10 mg/dL JASON BLACK Comment:Testing performed by : [address] [phone] Glucose 138 70 - 199 mg/dL JASON [...] revised 2017. Testing performed by: [facility], [address] [place] [phone] Calcium 9.8 8.5 - 10.3 mg/dL [facility] Comment:Testing performed by : [facility], [address] [place] [phone] Bilirubin, total 0.5 0.1 - 1.2 mg/dL [facility] Comment:Testing performed by : [facility], [address] [place] [phone] Protein, pl 6.3(L) 6.5 - 8.5 g/dL [facility]ER [facility] Comment:Testing performed by : [facility], [address] [place] [phone] Albumin 4.2 3.5 - 5.0 g/dL [facility]ER [facility] Comment:Testing performed by : [address] [phone] Alk phos 91 40 - 130 Units/L [facility] Comment:Testing performed by : [address] [phone] ALT 16 7 - 45 Units/L [facility] Comment:Testing performed by : [facility], [address] [place] [phone] AST 20 10 - 45 Units/L [facility] Comment:Testing performed by : [facility], [address] [place] [phone] Blood specimen (specimen) 11/23/2019 3:10 PM CDT 11/23/2019 3:12 PM CDT us Sabrina Willard NP LAB BLOOD ORDERABLES Final R esult [facility] Department of Laboratories [place] [phone] * (ABNORMAL) Chromogranin A (11/23/2019 3:10 PM [...] absence of malignant disease. Test Performed by: [place] [address] Cupola Tender Helper: Immanuel Novak M.D. Ph.D.; CLIA# [id number] Blood specimen (specimen) 11/23/2019 3:10 PM CDT 11/23/2019 5:06 PM CDT us Sabrina Willard CINETECHNICIAN LAB BLOOD ORDERABLES Final R esult JASON BLACK [facility] Department [place] [address] documented in this encounter Visit Diagnoses Diagnosis Neuroendocrine carcinoma (HCC) Other malignant neoplasm of unspecified site Malignant neoplasm metastatic to liver (HCC) documented in this encounter Orders Appointment Requests Count Last Ordered Date Fi rst Ordered Date ONCBCN LAB APPOINTMENT 1 11/23/2019 documented in this encounter Care Teams Fundraising Assistant Relationship Specialty Start Date End Date Julio César Briseno MD PCP - General 10/01/16 Eren Cr MD Referring Physician Medical Oncology 11/25/18 Yohana Bowen MD Radiation Oncologist Radiation Oncology 11/25/18 documented as of this encounter
--- OUTSIDE RECORDS SUMMARY | 2024-06-26 02:16 | XMS_ITS | Encounter Summary ---
Author Organization [facility] Address [address] [place] [address] Phone Care Team Providers Care Miller Helper Distillery Name Role Phone Julio César Briseno MD Primary Care Provider [phone] Eren Cr MD Unavailable [phone] Yohana Bowen MD Unavailable Encounter Details Date Type Department Care Team (Late st Contact Info) Description 09/24/2019 Orders Only [facility] Oncology [address] [place] [address] Sola Heredia Social History Tobacco Use Types Packs/Day Years Used Date Smoking Tobacco: Never Smokeless Tobacco: Never Alcohol Use Standard Drinks/Week Comments Yes 1 (1 standard drink = 0.6 oz pur e alcohol) Comments No Sex and Gender Information Value Date Recorded Sex Assigned at Not on file 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
--- OUTSIDE RECORDS SUMMARY | 2024-06-26 02:16 | XMS_ITS | Encounter Summary ---
Author Organization [facility] Address [address] [place] [address] Care Team Providers Care Metal Riveting Machine Operator Name Role Phone Julio César Briseno MD Primary Care Provider [phone] Eren Cr MD Unavailable [phone] Yohana Bowen MD Unavailable Reason for Visit * Reason Comments Follow-up Encounter Details Date Type Department Care Team (Late st Contact Info) Description 01/26/2020 9:30 AM CDT Telemedicine [facility] Advanced Medicine Radiation Oncology [address] [place] [address] Advanced Medicine [facility] [place] [address] Yohana Bowen MD [facility] [address] [place] [address] Neuro-endocrine carcinoma (CMS/HCC) Social History Tobacco Use Types Packs/Day Years Used Date Smoking Tobacco: Never Smokeless Tobacco: Never Alcohol Use Standard Drinks/Week Comments Yes 1 (1 standard drink = 0.6 oz pur e alcohol) Comments No Sex and Gender Information Value Date Recorded Sex Assigned at Not on file 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 clotrimazole-betamethasone (LOTRISONE) cream clotrimazole-betamethasone 1 %- 0.05 % topical cream APPLY EXTERNALLY TO ABDOMEN TWICE DAILY NEEDED ??? coenzyme [id number] (CO Q-10, WITH VIT E,) 100-5 [...] Dr. Bowen and I were located in [facility] in [place] and the patient was located at home in [place].??The session started at 8:50 AM and ended [...] was located at home in the state [facility]. The patient visit started at 8:50 AM and ended at 9:30 AM. Total encounter time was 60 minutes, which includes time spent today on pre charting, the patient encounter, and post charting. The patient: has been informed that the visit may not be secure and acknowledged the information. The option of participating in a telephone or video visit during the [address] emergencywas explained to them. After being [...] documented in this encounter Care Teams Metal Riveting Machine Operator Relationship Specialty Start Date End Date Julio César Briseno MD PCP - General 10/01/16 Eren Cr MD Referring Physician Medical Oncology 11/25/18 Yohana Bowen MD Radiation Oncologist Radiation Oncology 11/25/18 documented as of this encounter
--- OUTSIDE RECORDS SUMMARY | 2024-06-26 02:16 | XMS_ITS | Encounter Summary ---
Author Organization 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 Gender Identity Not on file Sexual Orientation Straight 02/19/2021 9: 29 AM CDT Occupation Industry Job Start Date Job End Date retired Not on file Not on file Not on file documented as of this encounter Plan of Treatment Not on file documented as of this encounter Visit Diagnoses Not on filedocumented in this encounter Care Teams Customer Service Specialist Relationship Specialty Start Date End Date Julio César Briseno MD PCP - General 10/01/16 Eren Cr MD Referring Physician Medical Oncology 11/25/18 Yohana Bowen MD Radiation Oncologist Radiation Oncology 11/25/18 documented as of this encounter
--- OUTSIDE RECORDS SUMMARY | 2024-06-26 02:16 | XMS_ITS | Encounter Summary ---
Author Organization [facility] Address [address] [place] [address] Phone Care Team Providers Care Hydroelectric Production Technician Name Role Phone Julio César Briseno MD Primary Care Provider [phone] Eren Cr MD Unavailable [phone] Yohana Bowen MD Unavailable Encounter Details Date Type Department Care Team (Late st Contact Info) Description 08/17/2019 10:30 AM QUARRYMAN Office Visit [facility] Oncology Formerly [facility] 7th [place] [address] [place] [address] Eren Cr MD [address] [facility] [address] [place] [address] Neuroendocrine carcinoma (CMS/HCC) (Primary Dx); [...] on file Legal Sex Female 2:41 PM QUARRYMAN Gender Identity Not on file Sexual Orientation Straight 02/19/2021 9: 29 AM CDT Occupation Industry Job Start Date Job End Date retired Not on file Not on file Not on file documented as of this encounter Last Filed Vital Signs Vital Sign Reading Time Taken Comments Blood Pressure 148/82 08/17/2019 10:17 AM QUARRYMAN Pulse 75 08/17/2019 10:17 AM QUARRYMAN Temperature 36.6 ??C (97.9 ??F) 08/17/2019 10:[address] Respiratory Rate 18 08/17/2019 10:17 AM QUARRYMAN Oxygen Saturation 97% 08/17/2019 10:17 AM QUARRYMAN Inhaled Oxygen Concentration - - Weight 80.5 kg (177 lb 6.4 oz) 08/17/2019 10:17 AM QUARRYMAN Height - - Body Mass Index 31.42 07/29/2019 6:18 AM QUARRYMAN documented in this encounter Progress Notes * [...] also underwent right colectomy in [facility] [place] by Dr. Greyson Reeves. Biopsy [...] > 5 YEARS N/A 08/04/2019 ? ? SC REMOVAL OF TONSILS,<12 Y/O [...] DAILY NEEDED, Disp: , Rfl: ??? coenzyme [id number] E (CO Q-10, WITH VIT E,) 100-5 [...] interim with any symptoms, questions, or concerns. RYMAN documented in this encounter Plan of Treatment Not on file documented as of this encounter Results * Comprehensive metabolic panel (10/27/2019 11:19 AM CDT) Sodium 138 135 - 145 mmol/L [facility] Comment:Testing performed by : [facility], [address] [place] [phone] Potassium, pl 4.6 3.3 - 4.9 mmol/L CERMINNIE BJ Comment:Testing performed by : [facility], [address] [place] [phone] Chloride 103 97 - 110 mmol/L CERMINNIE BJ Comment:Testing performed by : [facility], [address] [place] [phone] CO2 28 22 - 32 mmol/L CERMINNIE BJ Comment:Testing performed by : [facility], [address] [place] [address] Anion gap 7 2 - 15 mmol/L CERMINNIE BJ Comment:Testing performed by : [facility], [address] [place] [phone] BUN 15 8 - 25 mg/dL CERMINNIE BJ Comment:Testing performed by : [facility], [address] [place] [address] Creatinine 0.80 0.60 - 1.10 mg/dL CERNER BJ Comment:Testing performed by : [facility], [address] [place] [phone] Glucose 116 70 - 199 mg/dL CERNER [...] was last revised 2017. Testing performed by: [place] [phone] Calcium 10.0 8.5 - 10.3 mg/dL CERNER BJ Comment:Testing performed by : [address] [address] Bilirubin, total 0.8 0.1 - 1.2 mg/dL CERNER BJ Comment:Testing performed by : [address] [address] Protein, pl 6.9 6.5 - 8.5 g/dL CERNER BJ Comment:Testing performed by : [address] [address] Albumin 4.4 3.5 - 5.0 g/dL CERNER BJ Comment:Testing performed by : [address] [address] Alk phos 80 40 - 130 Units/L CERNER BJ Comment:Testing performed by : [address] [address] ALT 14 7 - 45 Units/L CERNER BJ Comment:Testing performed by : [address] [address] AST 19 10 - 45 Units/L CERNER BJ Comment:Testing performed by : [address] [address] Blood specimen (specimen) 10/27/2019 11:19 AM CDT 10/27/2019 11:19 AM CDT us Eren Cr MD LAB BLOOD ORDERABLES Final Re sult [facility] [place] [address] * (ABNORMAL) CBC with auto differential (10/27/2019 11:19 AM CDT) WBC 5.0 3.8 - 9.8 K/cumm JASON BLACK Comment:Testing performed by : [place] [phone] Hgb 12.7 12.1 - 15.1 g/dL JASON BLACK Comment:Testing performed by : [address] [address] Hct 36.4 36.1 - 44.3 % [facility] Comment:Testing performed by : [facility], [address] [place], [place] [phone] Plt 106(L) 140 - 440 K/cumm [facility] Comment:Testing performed by : [address] [address] MPV 7.5 6.8 - 10.4 fL [facility] Comment:Testing performed by : [address] [address] RBC 3.88(L) 3.90 - 5.00 M/cumm [facility] Comment:Testing performed by : [address] [address] MCV 93.8 80.0 - 97.6 fL CERMINNIE BJ Comment:Testing performed by : [facility], [address] [place] [address] MCH 32.7 26.7 - 33.7 pg CERMINNIE BJ Comment:Testing performed by : [address] [address] MCHC 34.9 32.7 - 35.5 g/dL [facility] Comment:Testing performed by : [facility], [address] [facility] [address] RDW CV 13.9 11.8 - 14.6 % [facility] Comment:Testing performed by : [facility], [address] [facility] [address] NRBC abs 0.00 0.00 - 0.01 K/cumm [facility] Comment:Testing performed by : [facility], [address] [place] [phone] Blood specimen (specimen) 10/27/2019 11:19 AM CDT 10/27/2019 11:19 AM CDT Eren Cr MD LAB BLOOD ORDERABLES Final Re sult [facility] One [facility] Department of [place] [address] * (ABNORMAL) Chromogranin A (10/27/2019 11:19 AM CDT) Chromogranin A 225(H) <93 ng/mL [facility] Comment: Impaired [...] of malignant disease. Test Performed by: [address] [address] Trust Officer: Immanuel Novak M.D. Ph.D.; CLIA# [id number] Blood specimen (specimen) 10/27/2019 11:19 AM CDT 10/27/2019 1:28 PM CDT Eren Cr MD LAB BLOOD ORDERABLES Final Re sult JASON BLACK One [facility] Department [place] [address] * Comprehensive metabolic panel (09/30/2019 1:58 PM CDT) Sodium 144 135 - 145 mmol/L JASON BLACK Comment:Testing performed by : [facility], [address] [place] [phone] Potassium, pl 4.6 3.3 - 4.9 mmol/L JASON BLACK Comment:Testing performed by : [facility], [address] [place] [address] Chloride 103 97 - 110 mmol/L JAS[facility] BLACK Comment:Testing performed by : [facility], [address] [place] [address] CO2 27 22 - 32 mmol/L JASON BLACK Comment:Testing performed by : [facility], [address] [place] [phone] Anion gap 14 2 - 15 mmol/L [facility] BLACK Comment:Testing performed by : [address] [address] BUN 12 8 - 25 mg/dL [facility] BLACK Comment:Testing performed by : [facility], [address] [place] [address] Creatinine 0.77 0.60 - 1.10 mg/dL [facility] BLACK Comment:Testing performed by : [facility], [address] [place] [phone] Glucose 100 70 - 199 mg/dL [facility] Comment: [...] was last revised 2017. Testing performed by: [facility], [address] [place] [address] Calcium 10.1 8.5 - 10.3 mg/dL [facility] Comment:Testing performed by : [facility], [address] [place] [address] Bilirubin, total 0.4 0.1 - 1.2 mg/dL [facility] Comment:Testing performed by : [facility], [address] [place] [address] Protein, pl 6.6 6.5 - 8.5 g/dL CERNER BJ Comment:Testing performed by : [address] [address] Albumin 4.4 3.5 - 5.0 g/dL [facility] Comment:Testing performed by : [facility], [address] [place] [phone] Alk phos 72 40 - 130 Units/L [facility] Comment:Testing performed by : [address] [address] ALT 13 7 - 45 Units/L [facility] Comment:Testing performed by : [address] [address] AST 20 10 - 45 Units/L [facility] Comment:Testing performed by : [facility], [address] [place] [phone] Blood specimen (specimen) 09/30/2019 1:58 PM CDT 09/30/2019 2:01 PM CDT us Eren Cr MD LAB BLOOD ORDERABLES Final Re sult [facility] One [facility] Department [place] [address] * (ABNORMAL) CBC with auto differential (09/30/2019 1:58 PM CDT) WBC 4.9 3.8 - 9.8 K/cumm CERNER BJ Comment:Testing performed by : [facility], [address] [place] [address] Hgb 11.9(L) 12.1 - 15.1 g/dL CERNER BJ Comment:Testing performed by : [place] [address] Hct 33.7(L) 36.1 - 44.3 % CERNER BJ Comment:Testing performed by : [facility], [address] [place] [address] Plt 106(L) 140 - 440 K/cumm CERNER BJ Comment:Testing performed by : [place] [address] MPV 7.3 6.8 - 10.4 fL [facility]ER BJ Comment:Testing performed by : [place] [address] RBC 3.66(L) 3.90 - 5.00 M/cumm C[facility]ER BJ Comment:Testing performed by : [place] [address] MCV 92.1 80.0 - 97.6 fL CERNER BJ Comment:Testing performed by : [place] [address] MCH 32.4 26.7 - 33.7 pg CERNER BJ Comment:Testing performed by : [place] [address] MCHC 35.2 32.7 - 35.5 g/dL CERNER BJ Comment:Testing performed by : [place] [address] RDW CV 15.3(H) 11.8 - 14.6 % [facility]ER BJ Comment:Testing performed by : [place] [address] NRBC abs 0.00 0.00 - 0.01 K/cumm CERNER BJ Comment:Testing performed by : [place] [address] Blood specimen (specimen) 09/30/2019 1:58 PM CDT 09/30/2019 2:01 PM CDT Eren Cr MD LAB BLOOD ORDERABLES Final Re sult Performing Organization Address [facility] [place] [address] * (ABNORMAL) Chromogranin A (09/30/2019 1:58 PM CDT) Chromogranin A 161(H) <93 ng/mL [facility] Comment: [...] of malignant disease. Test Performed by: [facility] [place] [address] Trust Officer: Immanuel Novak M.D. Ph.D.; CLIA# [id number] Blood specimen (specimen) 09/30/2019 1:58 PM CDT 09/30/2019 4:09 PM CDT Eren Cr MD LAB BLOOD ORDERABLES Final Re sult Performing Organization Address [facility] Co de Phone Number [facility] [place] [address] * (ABNORMAL) CBC with auto differential (09/02/2019 2:14 PM QUARRYMAN) WBC 3.5(L) 3.8 - 9.8 K/cumm CERNER BJ Comment:Testing performed by : [facility], [address] [place] [address] Hgb 13.0 12.1 - 15.1 g/dL C[facility]ER BJ Comment:Testing performed by : [facility], [address] [place] [address] Hct 37.6 36.1 - 44.3 % CERNER BJ Comment:Testing performed by : [facility], [address] [place] [address] Plt 94(L) 140 - 440 K/cumm CERNER BJ Comment:Testing performed by : [place] [address] MPV 7.7 6.8 - 10.4 fL CERNER BJ Comment:Testing performed by : [place] [address] RBC 4.19 3.90 - 5.00 M/cumm CERNER BJ Comment:Testing performed by : [place] [address] MCV 89.8 80.0 - 97.6 fL CERNER BJ Comment:Testing performed by : [place] [address] MCH 31.1 26.7 - 33.7 pg CERNER BJ Comment:Testing performed by : [place] [address] MCHC 34.6 32.7 - 35.5 g/dL CERNER BJ Comment:Testing performed by : [place] [address] RDW CV 15.0(H) 11.8 - 14.6 % C[facility]ER BJ Comment:Testing performed by : [place] [address] NRBC abs 0.00 0.00 - 0.01 K/cumm CERNER BJ Comment:Testing performed by : [place] [address] Blood specimen (specimen) 09/02/2019 2:14 PM QUARRYMAN 09/02/2019 2:15 PM QUARRYMAN Eren Cr MD LAB BLOOD ORDERABLES Final Re sult Performing Organization Address [facility] de Phone Number [facility] [place] [address] * (ABNORMAL) Chromogranin A (09/02/2019 2:00 PM QUARRYMAN) Chromogranin A 196(H) <93 ng/mL [facility] Comment: [...] absence of malignant disease. Test Performed by: [place] [address] Trust Officer: Immanuel Novak M.D. Ph.D.; CLIA# [id number] Blood specimen (specimen) 09/02/2019 2:00 PM QUARRYMAN 09/02/2019 4:11 PM QUARRYMAN Eren Cr MD LAB BLOOD ORDERABLES Final Re sult Performing Organization Address [facility] [place] [address] * (ABNORMAL) Comprehensive metabolic panel (09/02/2019 2:00 PM QUARRYMAN) Sodium 141 135 - 145 mmol/L [facility] Potassium, pl 3.5 3.3 - 4.9 mmol/L [facility] Chloride 106 97 - 110 mmol/L [facility] CO2 27 22 - 32 mmol/L [facility] Anion gap 8 2 - 15 mmol/L [facility] BUN 16 8 - 25 mg/dL [facility] Creatinine 0.92 0.60 - 1.10 mg/dL [facility] Glucose 113 70 - 199 mg/dL [facility] [...] 2017. Calcium 10.5(H) 8.5 - 10.3 mg/dL [facility] Bilirubin, total 0.5 0.1 - 1.2 mg/dL [facility] Protein, pl 7.3 6.5 - 8.5 g/dL [facility] Albumin 4.3 3.5 - 5.0 g/dL [facility] Alk phos 83 40 - 130 Units/L [facility] ALT 15 7 - 45 Units/L [facility] AST 25 10 - 45 Units/L [facility] Blood specimen (specimen) 09/02/2019 2:00 PM QUARRYMAN 09/02/2019 2:26 PM QUARRYMAN us Eren Cr MD LAB BLOOD ORDERABLES Final Re sult [facility] One [facility] [place] [address] documented in this encounter Visit Diagnoses Diagnosis [...] 020 documented in this encounter Care Teams Hydroelectric Production Technician Relationship Specialty Start Date End Date Julio César Briseno MD PCP - General 10/01/16 Eren Cr MD Referring Physician Medical Oncology 11/25/18 Yohana Bowen MD Radiation Oncologist Radiation Oncology 11/25/18 documented as of this encounter
--- OUTSIDE RECORDS SUMMARY | 2024-06-26 02:16 | XMS_ITS | Encounter Summary ---
Author Organization [facility] Address [address] [place] [address] Phone Care Team Providers Care Clinical Immunologist Name Role Phone Julio César Briseno MD Primary Care Provider Eren Cr MD Unavailable [phone] Yohana Bowen MD Unavailable Encounter Details Date Type Department Care Team (Late st Contact Info) Description 09/01/2019 Orders Only [facility] Surgery [address] [facility] [address] [place] [address] Greyson Reeves MD [address] [facility] [phone] [place] [address] Social History Tobacco Use Types Packs/Day Years Used Date Smoking Tobacco: Never Smokeless Tobacco: Never Alcohol Use Standard Drinks/Week Comments Yes 1 (1 standard drink = 0.6 oz pur e alcohol) Comments No Sex and Gender Information Value Date Recorded Sex Assigned at Not on file Legal Sex Female 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
--- OUTSIDE RECORDS SUMMARY | 2024-06-26 02:16 | XMS_ITS | Encounter Summary ---
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) Procedures [place] OCTREOTIDE INJECTION, DEPOT Octreotide 28 Day Cycles - Carcinoid Eren Cr MD [address] [facility] [address] [place] [address] Phone: tel: fax: [facility] Cancer [address] [address] Phone: tel: fax: Referral ID Status Reason Start Date Expiration Date V isits Requested Visits Authorized [id number] Authorized 11/28/2017 02/05/2025 1 150 Encounter Details Date Type Department Care Team (Late st Contact Info) Description 09/30/2019 3:00 PM CDT Infusion [facility] Oncology [address] [place] [address] [place] [address] Neuroendocrine carcinoma (CMS/HCC) (Primary Dx); Malignant neoplasm metastatic to liver (CMS/HCC) Social History Tobacco Use Types Packs/Day Years Used Date Smoking Tobacco: Never Smokeless Tobacco: Never Alcohol Use Standard Drinks/Week Comments Yes 1 (1 standard drink = 0.6 oz pur e alcohol) Comments No Sex and Gender Information Value Date Recorded Sex Assigned at Not on file 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
--- OUTSIDE RECORDS SUMMARY | 2024-06-26 02:16 | XMS_ITS | Encounter Summary ---
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 7th [place] [address] Neuroendocrine carcinoma (CMS/HCC) (Primary Dx); Malignant neoplasm metastatic to liver (CMS/HCC) Social History Tobacco Use Types Packs/Day Years Used Date Smoking Tobacco: Never Smokeless Tobacco: Never Alcohol Use Standard Drinks/Week Comments Yes 1 (1 standard drink = 0.6 oz pur e alcohol) Comments No Sex and Gender Information Value Date Recorded Sex Assigned at Not on file Legal Sex Female 2:41 PM COO Gender Identity Not on file Sexual Orientation Straight 02/19/2021 9: 29 AM CDT Occupation Industry Job Start Date Job End Date retired Not on file Not on file Not on file documented as of this encounter Last Filed Vital Signs Vital Sign Reading Time Taken Comments Blood Pressure 133/78 09/02/2019 2:35 PM COO Pulse 69 09/02/2019 2:35 PM COO Temperature 36 ??C (96.8 ??F) 09/02/2019 2:35 PM COO Respiratory Rate 20 09/02/2019 2:35 PM COO Oxygen Saturation 98% 09/02/2019 2:35 PM COO Inhaled Oxygen Concentration - - Weight 78.6 kg (173 lb 4.5 oz) 09/02/2019 2:35 P M COO Height - - Body Mass Index 30.7 07/29/2019 6:18 AM COO documented in this encounter Nursing Notes * Rain Marie, RN - 09/02/2019 3:00 PM CST Patient received Sandostatin right dorsogluteal. Patient tolerated well. Patient left clinic ambulatory. Martínez Marie RN documented in this encounter Plan of [...] (HCC),Neuroendocrine carcinoma (HCC) Given 09/02/2019 2:43 PM COO 30 mg Right Dorsogluteal/Butt ock documented in this encounter Orders Medications Ordered That Brett ht Not Have Been Administered Count Last Ordered Date First Ordered Date octreotide LAR (SandoSTATIN LAR) extended release intramuscular injection 30 mg 1 09/02/2019 Appointment Requests Count Last Ordered Date Fi rst Ordered Date ONCBCN INJECTION APPOINTMENT REQUEST 1 08/09 documented in this encounter Care Teams Biological Inspector Relationship Specialty Start Date End Date Julio César Briseno MD PCP - General 10/01/16 Eren Cr MD Referring Physician Medical Oncology 11/25/18 Yohana Bowen MD Radiation Oncologist Radiation Oncology 11/25/18 documented as of this encounter
--- OUTSIDE RECORDS SUMMARY | 2024-06-26 02:16 | XMS_ITS | Encounter Summary ---
Author Organization [facility] Address [address] [place] [address] Phone Care Team Providers Care Livestock Buyer Name Role Phone Julio César Briseno MD Primary Care Provider Eren Cr MD Unavailable [phone] Yohana Bowen MD Unavailable Encounter Details Date Type Department Care Team (Late st Contact Info) Description 11/02/2019 Telephone [facility] Oncology [address] 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 3 things: - Can her latest CT [...] belly she cringes. Thank you! Colleen Chung [phone] I called and spoke to Colleen to [...] on filedocumented in this encounter Care Teams Livestock Buyer Relationship Specialty Start Date End Date Julio César Briseno MD PCP - General 10/01/16 Eren Cr MD Referring Physician Medical Oncology 11/25/18 Yohana Bowen MD Radiation Oncologist Radiation Oncology 11/25/18 documented as of this encounter
--- OUTSIDE RECORDS SUMMARY | 2024-06-26 02:16 | XMS_ITS | Encounter Summary ---
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) Procedures DE OCTREOTIDE INJECTION, DEPOT Octreotide 28 Day Cycles - Carcinoid Eren Cr MD [address] [facility] [address] [place] [address] Phone: tel: fax: [facility] [address] [address] Phone: tel: fax: Referral ID Status Reason Start Date Expiration Date V isits Requested Visits Authorized [id number] Authorized 11/28/2017 02/05/2025 1 150 Encounter Details Date Type Department Care Team (Late st Contact Info) Description 11/23/2019 3:30 PM CDT Infusion [facility] Oncology [address] [place] [address] [place] [address] Neuroendocrine carcinoma (CMS/HCC) (Primary Dx); Malignant neoplasm metastatic to liver (CMS/HCC) Social History Tobacco Use Types Packs/Day Years Used Date Smoking Tobacco: Never Smokeless Tobacco: Never Alcohol Use Standard Drinks/Week Comments Yes 1 (1 standard drink = 0.6 oz pur e alcohol) Comments No Sex and Gender Information Value Date Recorded Sex Assigned at Not on file Legal 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
--- OUTSIDE RECORDS SUMMARY | 2024-06-26 02:16 | XMS_ITS | Encounter Summary ---
Author Organization [facility] Address [address] [place] [address] Phone Care Team Providers Care Training And Development Head Name Role Phone Julio César Briseno MD Primary Care Provider [phone] Eren Cr MD Unavailable [phone] Yohana Bowen MD Unavailable Reason for Referral * Diagnostic Imaging (Routine) - Closed Specialty Diagnoses / Procedures Referred By Evelyne bowman Referred To Contact Diagnoses Abnormal bone density screening Procedures Dexa Axial Skeleton Bone Density 1 or 2 Site Oksana Rivas NP Phone: tel: fax: [facility] (All Locations) Referral ID Status Reason Start Date Expiration Date Visits Re quested Visits Authorized [id number] Closed 01/13/2020 07/24/2021 1 1 Encounter Details Date Type Department Care Team (Late st Contact Info) Description 01/13/2020 3:00 PM CDT Office Visit [facility] Obstetrics and Gynecology [address] [facility] 13th [place] [address] [place] [address] Oksana Rivas NP [address] [address] Abnormal bone density screening (Primary [...] file Legal Sex Female 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 Greyson Reeves. [...] > 5 YEARS N/A 08/04/2019 ? ? GA REMOVAL OF TONSILS,<10 Y/O [...] mouth 3 (three) times a day with [id number] packet 3 ??? clotrimazole-betamethasone (LOTRISONE) cream clotrimazole-betamethasone 1 %- 0.05 % topical cream APPLY EXTERNALLY TO ABDOMEN TWICE DAILY NEEDED ??? coenzyme D97-kucryly E (CO Q-10, WITH VIT E,) 100-5 [...] Rivas NP 01/13/2020 3:04 PM CC: PCP: uJlio César Briseno MD Enclosures:Note Cosigned by Jasbir Reeves MD at 01/14/2020 12:41 AM CDT [...] Bone mineral density was performed on a [employer] Discovery Densitometer. ?? Machine Cross-calibration and Precision [...] by the International Society of Clinical Densitometry. [id number] Oksana Rivas SENIOR SYSTEMS 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 IMG DXA PROCEDURES Final Result documented in [...] documented as of this encounter Care Teams Training And Development Head Relationship Specialty Start Date End Date Julio César Briseno MD PCP - General 10/01/16 Eren Cr MD Referring Physician Medical Oncology 11/25/18 Yohana Bowen MD Radiation Oncologist Radiation Oncology 11/25/18 documented as of this encounter
--- OUTSIDE RECORDS SUMMARY | 2024-06-26 02:16 | XMS_ITS | Encounter Summary ---
Author Organization [facility] Address [address] [place] [address] Phone Care Team Providers Care Bill Poster Installer Name Role Phone Julio César Briseno MD Primary Care Provider Eren Cr MD Unavailable [phone] Yohana Bowen MD Unavailable Reason for Visit * Reason Onset Date Comments Lab Results 11/25/2019 Encounter Details Date Type Department Care Team (Late st Contact Info) Description 11/25/2019 Telephone [facility] Oncology [address] [place] [address] Eren Cr MD [address] [place], [place] [id number] Lab Results Social History Tobacco Use Types Packs/Day Years Used Date Smoking Tobacco: Never Smokeless Tobacco: Never Alcohol Use Standard Drinks/Week Comments Yes 1 (1 standard drink = 0.6 oz pur e alcohol) Comments No Sex and Gender Information Value Date Recorded Sex Assigned at Not on file 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
--- OUTSIDE RECORDS SUMMARY | 2024-06-26 02:16 | XMS_ITS | Encounter Summary ---
Author Organization [facility] Address [address] [place] [address] Phone Care Team Providers Care Cafe Lead Name Role Phone Julio César Briseno MD Primary Care Provider Eren Cr MD Unavailable [phone] Yohana Bowen MD Unavailable Encounter Details Date Type Department Care Team (Late st Contact Info) Description 09/04/2019 Orders Only [facility] Surgery [address] [facility] 8th [place] [address] [place] [address] Greyson Reeves MD [address] [facility] [phone] [place] [address] Social History Tobacco Use Types Packs/Day Years Used Date Smoking Tobacco: Never Smokeless Tobacco: Never Alcohol Use Standard Drinks/Week Comments Yes 1 (1 standard drink = 0.6 oz pur e alcohol) Comments No Sex and Gender Information Value Date Recorded Sex Assigned at Not on file Legal Sex Female 2:41 PM 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
--- OUTSIDE RECORDS SUMMARY | 2024-06-26 02:16 | XMS_ITS | Encounter Summary ---
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
--- OUTSIDE RECORDS SUMMARY | 2024-06-26 02:16 | XMS_ITS | Encounter Summary ---
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) Procedures PET/CT Ga-68 Dotatate Skull to Thigh Yohana Bowen MD [address] [facility] [address] [facility] [address] [place] [address] Phone: tel: fax: [address] [address] Referral ID Status Reason Start Date Expiration Date Visits Re quested Visits Authorized [id number] Closed 07/27/2019 02/04/2021 2 2 Reason for Visit * Diagnostic Imaging (Routine) - Closed Specialty Diagnoses / Procedures Referred By Contac t Referred To Contact Radiology Diagnoses 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) Procedures PET/CT Ga-68 Dotatate Skull to Thigh Yohana Bowen MD [address] [facility] [address] [facility] [address] [place] [address] Phone: tel: fax: [facility] [address] [facility] [place] [address] Referral ID Status Reason Start Date Expiration Date Visits Re quested Visits Authorized [id number] Closed 07/27/2019 02/04/2021 2 2 Encounter Details Date Type Department Care Team (Latest Contact Info) Description 01/25/2020 1:55 PM CDT - 01/25/2020 11:59 PM CDT Hospital Encounter [facility] [address] [place] [address] Yohana Bowen MD [address] [facility] [address] [place] [address] Malignant neoplasm metastatic to liver (CMS/HCC) Discharge [...] file Legal 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 Female 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 Gender Identity Not on file Sexual [...] capsuleIndications :supplement Take 1 tablet by mouth hat lacer before breakfast 07/04/2016 4 cholecalciferol (VITAMIN D-3) 2,000 unit capsule Take 1 capsule (2,000 Units total) by mouth daily 30 capsule 2 04/25/2019 3 cholestyramine (QUESTRAN) 4 gram packet Take 1 packet by mouth 3 (three) times a day with meals 270 packet 3 09/04/2019 2 clotrimazole-betam ethasone (LOTRISONE) cream Apply 1 Application topically daily as needed (rash) 4 coenzyme F77-enkbvkp E 100-5 mg-unit capsuleIndications :supplement Take 1 tablet by mouth hat lacer before breakfast [address] (CYMBALTA) 30 [...] -PET/CT IMAGING DATE OF STUDY: ??01/25/2020 SCANNER: [facility] RADIOPHARMACEUTICAL: 4.7 mCi Ga-68 dotatate i.v. [...] obtained. ??The study was interpreted on the [employer] workstation. ?? Scanned area: skull vertex to [...] -PET/CT IMAGING DATE OF STUDY: 01/25/2020 SCANNER: [facility] RADIOPHARMACEUTICAL: 4.7 mCi Ga-68 dotatate i.v. [...] obtained. The study was interpreted on the [employer] workstation. Scanned area: skull vertex to the [...] by: Zev Llanes M.D. Yohana Bowen MD [facility] PET PROCEDURES Final Result documented in this [...] 01/25/2020 documented in this encounter Care Teams Business Area Director Relationship Specialty Start Date End Date Julio César Briseno MD PCP - General 10/01/16 Eren Cr MD Referring Physician Medical Oncology 11/25/18 Yohana Bowen MD Radiation Oncologist Radiation Oncology 11/25/18 documented as of this encounter
--- OUTSIDE RECORDS SUMMARY | 2024-06-26 02:16 | XMS_ITS | Encounter Summary ---
Author Organization [facility] Facility Care Team Providers Care Industrial Automation Specialist Name Role Phone Julio César Briseno MD Primary Care Provider [phone] Eren Cr MD Unavailable [phone] Yohana Bowen MD Unavailable Encounter Details [...] file Legal Sex Female 2:41 PM SOCIAL MEDIA ANALYST Gender Identity Not on file Sexual Orientation Straight 02/19/2021 9: 29 AM CDT Occupation Industry Job Start Date Job End Date retired Not on file Not on file Not on file documented as of this encounter Plan of Treatment Not on file documented as of this encounter Visit Diagnoses Not on filedocumented in this encounter Care Teams Industrial Automation Specialist Relationship Specialty Start Date End Date Julio César Briseno MD PCP - General 10/01/16 Eren Cr MD Referring Physician Medical Oncology 11/25/18 Yohana Bowen MD Radiation Oncologist Radiation Oncology 11/25/18 documented as of this encounter
--- OUTSIDE RECORDS SUMMARY | 2024-06-26 02:16 | XMS_ITS | Encounter Summary ---
Author Organization [facility] Address [address] [place] [address] Phone Care Team Providers Care Interim Controller Name Role Phone Julio César Briseno MD Primary Care Provider [phone] Eren Cr MD Unavailable Yohana Bowen MD Unavailable Reason for Visit * Reason Onset Date Comments Appointment changes 10/21/2019 Encounter Details Date Type Department Care Team (Late st Contact Info) Description 10/21/2019 Telephone [facility] Oncology [address] [place] [address] Sola Heredia Appointment changes Social History Tobacco Use Types Packs/Day Years Used Date Smoking Tobacco: Never Smokeless Tobacco: Never Alcohol Use Standard Drinks/Week Comments Yes 1 (1 standard drink = 0.6 oz pur e alcohol) Comments No Sex and Gender Information Value Date Recorded Sex Assigned at Not on file 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
--- OUTSIDE RECORDS SUMMARY | 2024-06-26 02:16 | XMS_ITS | Encounter Summary ---
Author Organization [facility] Healthcare Address [address] [place] [address] Care Team Providers Care Mold Yard Crane Operator Name Role Phone Julio César Briseno MD Primary Care Provider [phone] Eren Cr MD Unavailable [phone] Yohana Bowen MD Unavailable Sabrina Willard NP Unavailable [phone] Alejo Mi MD Unavailable [phone] Encounter Details Date Type Department Care Team (Late st Contact Info) Description 01/20/2020 Telephone [facility] Radiology [facility] ([facility]) [address] [place] [address] Gretchen Ceja, RT Social History Tobacco Use Types Packs/Day Years Used Date Smoking Tobacco: Never Smokeless Tobacco: Never Alcohol Use Standard Drinks/Week Comments Yes 1 (1 standard drink = 0.6 oz pur e alcohol) Comments No Sex and Gender Information Value Date Recorded Sex Assigned at Not on file Legal Sex Female 2:41 PM MEDICAL OFFICE SECRETARY Gender Identity Not on file Sexual [...] COVID: Suspected 09/04/2021 09/04/2021 09/04/2021 4:06 PM MEDICAL OFFICE SECRETARY COVID: Suspected 01/10/2022 01/10/2022 01/10/2022 5:55 PM CDT COVID: Suspected 06/13/2024 06/13/2024 06/13/2024 6:39 PM MEDICAL OFFICE SECRETARY documented as of this encounter Care Teams Mold Yard Crane Operator Relationship Specialty Start Date End Date Julio César Briseno MD PCP - General 10/01/16 Eren Cr MD Referring Physician Medical Oncology 11/25/18 Yohana Bowen MD Radiation Oncologist Radiation Oncology 11/25/18 Sabrina Willard NP [address] [place], [place] [id number] Nurse Practitioner Medical Oncology 08/17/20 11/26/21 Alejo Mi MD [address] [place] [address] Referring Physician Nephrology 03/07/23 documented as of this encounter
--- OUTSIDE RECORDS SUMMARY | 2024-06-26 02:16 | XMS_ITS | Encounter Summary ---
Author Organization [facility] Address [address] [place] [address] Phone Care Team Providers Care Student Worker Name Role Phone Julio César Briseno MD Primary Care Provider Eren Cr MD Unavailable [phone] Yohana Bowen MD Unavailable Encounter Details Date Type Department Care Team (Late st Contact Info) Description 10/21/2019 Orders Only [facility] Oncology [address] [place] [address] Sola Heredia Social History Tobacco Use Types Packs/Day Years Used Date Smoking Tobacco: Never Smokeless Tobacco: Never Alcohol Use Standard Drinks/Week Comments Yes 1 (1 standard drink = 0.6 oz pur e alcohol) Comments No Sex and Gender Information Value Date Recorded Sex Assigned at Not on file Legal Sex Female 2:41 PM 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
--- OUTSIDE RECORDS SUMMARY | 2024-06-26 02:16 | XMS_ITS | Encounter Summary ---
Author Organization [facility] Address [address] [place] [address] Phone Care Team Providers Care Cutter And Presser Name Role Phone Julio César Briseno MD Primary Care Provider Eren Cr MD Unavailable [phone] Yohana Bowen MD Unavailable Encounter Details Date Type Department Care Team (Late st Contact Info) Description 09/01/2019 Orders Only [facility] Oncology [address] [place] [address] Sabrina Willard, COMBER TENDER [address] [place], [place] [address] Social History Tobacco Use Types Packs/Day Years Used Date Smoking Tobacco: Never Smokeless Tobacco: Never Alcohol Use Standard Drinks/Week Comments Yes 1 (1 standard drink = 0.6 oz pur e alcohol) Comments No Sex and Gender Information Value Date Recorded Sex Assigned at Not on file Legal Sex Female 2:41 PM SCHOOL TRANSPORTATION 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
--- OUTSIDE RECORDS SUMMARY | 2024-06-26 02:16 | XMS_ITS | Encounter Summary ---
Author Organization [facility] Healthcare Address [address] [place] [address] Care Team Providers Care Medical Records Technician Name Role Phone Julio César Briseno MD Primary Care Provider [phone] Eren Cr MD Unavailable [phone] Yohana Bowen MD Unavailable Reason for Referral * Diagnostic Imaging (Routine) - Closed Specialty Diagnoses / Procedures Referred By Evelyne bowman Referred To Contact Radiology Diagnoses Malignant neoplasm metastatic to liver (HCC) Procedures CT Chest Abdomen Pelvis W Contrast Yohana Bowen MD [address] [facility] [address] [facility] [address] [place] [address] Phone: tel: fax: [address] [address] Referral ID Status Reason Start Date Expiration Date Visits Re quested Visits Authorized [id number] Closed 07/27/2019 02/04/2021 1 1 Reason for Visit * Diagnostic Imaging (Routine) - Closed Specialty Diagnoses / Procedures Referred By Evelyne bowman Referred To Contact Radiology Diagnoses Malignant neoplasm metastatic to liver (HCC) Procedures CT Chest Abdomen Pelvis W Contrast Yohana Bowen MD [address] [facility] [address] [facility] [address] [place] [address] Phone: tel: fax: [facility] [address] [facility] [place] [address] Referral ID Status Reason Start Date Expiration Date Visits Re quested Visits Authorized [id number] Closed 07/27/2019 02/04/2021 1 1 Encounter Details Date Type Department Care Team (Latest Contact Info) Description 10/27/2019 9:38 AM CDT - 10/27/2019 11:59 PM CDT Hospital Encounter [facility] Radiology [facility]) [address] [place] [address] Yohana Bowen MD [address] [facility] [address] [place] [address] Malignant neoplasm metastatic to liver (CMS/HCC) Discharge [...] on file Legal Sex Female 2:41 PM SCCM 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 Gender Identity Not on file Sexual [...] capsuleIndications :supplement Take 1 tablet by mouth information technology internship before breakfast 07/04/2016 4 bisacodyl (DULCOLAX) 10 [...] topically daily as needed (rash) 4 coenzyme W08-alyjhte E 100-5 mg-unit capsuleIndications :supplement Take 1 tablet by mouth information technology internship before breakfast [address] (CYMBALTA) 30 [...] 10/27/2019 documented in this encounter Care Teams Medical Records Technician Relationship Specialty Start Date End Date Julio César Briseno MD PCP - General 10/01/16 Eren Cr MD Referring Physician Medical Oncology 11/25/18 Yohana Bowen MD Radiation Oncologist Radiation Oncology 11/25/18 documented as of this encounter
--- OUTSIDE RECORDS SUMMARY | 2024-06-26 02:16 | XMS_ITS | Encounter Summary ---
Author Organization [facility] Address [address] [place] [address] Phone Care Team Providers Care Wellness Trainer Name Role Phone Julio César Briseno MD Primary Care Provider [phone] Eren Cr MD Unavailable [phone] Yohana Bowen MD Unavailable Reason for Visit * Episode Based Medications (Routine) - Authorized Specialty Diagnoses / Procedures Referred By Evelyne t Referred To Contact Oncology Diagnoses Neuroendocrine carcinoma (HCC) Malignant neoplasm metastatic to liver (HCC) Procedures NE OCTREOTIDE INJECTION, DEPOT Octreotide 28 Day Cycles - Carcinoid Eren Cr MD [address] [place] [address] Phone: tel: fax: [facility] [address] [address] Phone: tel: fax: Referral ID Status Reason Start Date Expiration Date V isits Requested Visits Authorized [id number] Authorized 11/28/2017 02/05/2025 1 150 Encounter Details Date Type Department Care Team (Late st Contact Info) Description 12/21/2019 2:45 PM CDT Lab [facility] Oncology [facility] [address] [place] [address] [place] [address] Neuroendocrine carcinoma (CMS/HCC); Malignant neoplasm metastatic to liver (CMS/HCC) Social History Tobacco Use Types Packs/Day Years Used Date Smoking Tobacco: Never Smokeless Tobacco: Never Alcohol Use Standard Drinks/Week Comments Yes 1 (1 standard drink = 0.6 oz pur e alcohol) Comments No Sex and Gender Information Value Date Recorded Sex Assigned at Not on file Legal Sex Female 2:41 PM AS400 DEVELOPER Gender Identity Not on file Sexual [...] : [facility], [address] [place] [phone] Lymphocyte abs 0.4(L) 1.2 - 3.3 K/cumm JASON BLACK Comment:Testing performed by : [facility], [address] [place] [phone] Monocyte abs 0.6 0.2 - 1.2 K/cumm CERNER BJ Comment:Testing performed by : [facility], [address] [place] [phone] Eosinophil abs 0.1 0.0 - 0.5 K/cumm CERMINNIE BJ Comment:Testing performed by : [facility], [address] [place] [phone] Basophil abs 0.0 0.0 - 0.2 K/cumm JASON BJ Comment:Testing performed by : [facility], [address] [place] [phone] Neutrophil pct 76.7 % CERNER BJ Comment: Interpretive Data Percent cell count reference ranges are not reported, since discordance with absolute values may lead to misinterpretation of CBC data. Current Interpretive Data was last revised on 2017. Testing performed by: [facility], [address] [place] [phone] Lymphocyte pct 8.4 % CERNER BJ Comment: Interpretive Data Percent cell count reference ranges are not reported, since discordance with absolute values may lead to misinterpretation of CBC data. Current Interpretive Data was last revised on 2017. Testing performed by: [facility], [address] [place] [phone] Monocyte pct 12.8 % CERNER BJ Comment:Testing performed by : [facility], [address] [place] [phone] Eosinophil pct 1.5 % CERNER BJ Comment:Testing performed by : [facility], [address] [place] [phone] Basophil pct 0.6 % CERNER BJ Comment:Testing performed by : [facility], [address] [place] [phone] Blood specimen (specimen) 12/21/2019 1:40 PM CDT 12/21/2019 1:41 PM CDT us Sabrina Willard NP LAB BLOOD ORDERABLES Final R esult [facility] Department [place] [address] * (ABNORMAL) CBC with auto differential (12/21/2019 1:40 PM CDT) WBC 4.8 3.8 - 9.8 K/cumm CERNER BJ Comment:Testing performed by : [facility], [address] [place], [place] [phone] Hgb 12.7 12.1 - 15.1 g/dL CERNER BJ Comment:Testing performed by : [facility], [address] [place], [place] [phone] Hct 36.6 36.1 - 44.3 % CERNER BJ Comment:Testing performed by : [place] [id number] Plt 114(L) 140 - 440 K/cumm CERNER BJ Comment:Testing performed by : [place] [id number] MPV 7.5 6.8 - 10.4 fL CERNER BJ Comment:Testing performed by : [facility], [address] [place], [place] [phone] RBC 3.84(L) 3.90 - 5.00 M/cumm CERNER BJ Comment:Testing performed by : [place] [id number] MCV 95.2 80.0 - 97.6 fL CERNER BJ Comment:Testing performed by : [place] [id number] MCH 33.0 26.7 - 33.7 pg CERNER BJ Comment:Testing performed by : [facility], [address] [place], [place] [phone] MCHC 34.6 32.7 - 35.5 g/dL CERNER BJ Comment:Testing performed by : [place] [id number] RDW CV 12.9 11.8 - 14.6 % CERNER BJ Comment:Testing performed by : [place] [id number] NRBC abs 0.00 0.00 - 0.01 K/cumm CERNER BJH Comment:Testing performed by : [facility], [address] [place] [phone] Blood specimen (specimen) 12/21/2019 1:40 PM CDT 12/21/2019 1:41 PM CDT Sabrina Willard NP LAB BLOOD ORDERABLES Final R esult [facility] Department [place] [address] * (ABNORMAL) Comprehensive metabolic panel (12/21/2019 1:40 PM CDT) Sodium 140 135 - 145 mmol/L [facility] Comment:Testing performed by : [facility], [address] [place] [phone] Potassium, pl 4.7 3.3 - 4.9 mmol/L JASON BLACK Comment:Testing performed by : [address] [phone] Chloride 105 97 - 110 mmol/L [facility] Comment:Testing performed by : [address] [address] CO2 28 22 - 32 mmol/L [facility] Comment:Testing performed by : [address] [phone] Anion gap 7 2 - 15 mmol/L [facility] Comment:Testing performed by : [address] [phone] BUN 16 8 - 25 mg/dL [facility] Comment:Testing performed by : [address] [phone] Creatinine 0.82 0.60 - 1.10 mg/dL [facility] Comment:Testing performed by : [address] [phone] Glucose 124 70 - 199 mg/dL [facility] Comment: Interpretive Data Fasting glucose [...] by: [facility], [address] [place] [phone] Calcium 10.9(H) 8.5 - 10.3 mg/dL [facility] Comment:Testing performed by : [facility], [address] [place] [phone] Bilirubin, total 0.5 0.1 - 1.2 mg/dL CERNER BJ Comment:Testing performed by : [facility], [address] [place] [phone] Protein, pl 7.0 6.5 - 8.5 g/dL CERNER BJ Comment:Testing performed by : [facility], [address] [place] [phone] Albumin 4.6 3.5 - 5.0 g/dL CERNER BJ Comment:Testing performed by : [facility], [address] [place] [phone] Alk phos 88 40 - 130 Units/L CERNER BJ Comment:Testing performed by : [facility], [address] [place] [phone] ALT 15 7 - 45 Units/L CERNER BJ Comment:Testing performed by : [facility], [address] [place] [phone] AST 20 10 - 45 Units/L [facility] Comment:Testing performed by : [facility], [address] [place] [phone] Blood specimen (specimen) 12/21/2019 1:40 PM CDT 12/21/2019 1:41 PM CDT us Sabrina Willard NP LAB BLOOD ORDERABLES Final R esult [facility] Department [place] [address] * (ABNORMAL) Chromogranin A (12/21/2019 1:39 PM [...] Performed by: [facility] [address] [place] [address] Retail Manager In Training: Immanuel Novak M.D. Ph.D.; CLIA# [id number] Blood specimen (specimen) 12/21/2019 1:39 PM CDT 12/21/2019 2:23 PM CDT us Sabrina Willard ADOBE FLEX DEVELOPER LAB BLOOD ORDERABLES Final R esult [facility] Department [place] [address] documented in this encounter Visit Diagnoses Diagnosis Neuroendocrine carcinoma (HCC) Other malignant neoplasm of unspecified site Malignant neoplasm metastatic to liver (HCC) documented in this encounter Orders Appointment Requests Count Last Ordered Date Fi rst Ordered Date ONCBCN LAB APPOINTMENT 1 12/21/2019 documented in this encounter Care Teams Wellness Trainer Relationship Specialty Start Date End Date Julio César Briseno MD PCP - General 10/01/16 Eren Cr MD Referring Physician Medical Oncology 11/25/18 Yohana Bowen MD Radiation Oncologist Radiation Oncology 11/25/18 documented as of this encounter
--- OUTSIDE RECORDS SUMMARY | 2024-06-26 02:16 | XMS_ITS | Encounter Summary ---
Author Organization [facility] Address [address] [place] [address] Care Team Providers Care Manager Heavy Equipment Name Role Phone Julio César Briseno MD Primary Care Provider [phone] Eren Cr MD Unavailable [phone] Yohana Bowen MD Unavailable Reason for Referral * Diagnostic Imaging (Routine) - Closed Specialty Diagnoses / Procedures Referred By Contac t Referred To Contact Radiology Diagnoses Neuro-endocrine carcinoma (HCC) Neuroendocrine carcinoma (HCC) Malignant neoplasm metastatic to liver (HCC) Procedures CT Chest Abdomen Pelvis W Contrast Yohana Bowen MD [address] [facility] [address] [place] [address] Phone: tel: fax: [address] [address] Referral ID Status Reason Start Date Expiration Date Visits Re quested Visits Authorized [id number] Closed 02/05/2020 03/06/2021 1 1 Encounter Details Date Type Department Care Team (Late st Contact Info) Description 02/05/2020 Orders Only [facility] Advanced Medicine Radiation Oncology [facility] [place] [address] Kanchan Ruff CMA Neuro-endocrine carcinoma [...] file Legal Sex Female 2:41 PM FUR TANNER Gender Identity Not on file Sexual [...] documented in this encounter Care Teams Manager Heavy Equipment Relationship Specialty Start Date End Date Julio César Briseno MD PCP - General 10/01/16 Eren Cr MD Referring Physician Medical Oncology 11/25/18 Yohana Bowen MD Radiation Oncologist Radiation Oncology 11/25/18 documented as of this encounter
--- OUTSIDE RECORDS SUMMARY | 2024-06-26 02:16 | XMS_ITS | Encounter Summary ---
Author Organization [facility] Address [address] [place] [address] Phone Care Team Providers Care Spot Welder Line Name Role Phone Julio César Briseno MD Primary Care Provider Eren Cr MD Unavailable [phone] Yohana Bowen MD Unavailable Encounter Details Date Type Department Care Team (Late st Contact Info) Description 10/26/2019 Orders Only [facility] Oncology [address] [facility] Advanced Medicine 7th [place] [address] [place] [address] Sabrina Willard, AGRICULTURAL AND FORESTRY SUPERVISOR [address] [place], [place] [id number] Social History Tobacco Use Types Packs/Day Years Used Date Smoking Tobacco: Never Smokeless Tobacco: Never Alcohol Use Standard Drinks/Week Comments Yes 1 (1 standard drink = 0.6 oz pur e alcohol) Comments No Sex and Gender Information Value Date Recorded Sex Assigned at Not on file Legal Sex Female 2:41 PM MORNING NANNY Gender Identity Not on file Sexual Orientation [...] on filedocumented in this encounter Care Teams Spot Welder Line Relationship Specialty Start Date End Date Julio César Briseno MD PCP - General 10/01/16 Eren Cr MD Referring Physician Medical Oncology 11/25/18 Yohana Bowen MD Radiation Oncologist Radiation Oncology 11/25/18 documented as of this encounter
--- OUTSIDE RECORDS SUMMARY | 2024-06-26 02:17 | XMS_ITS | Encounter Summary ---
Author Organization [facility] Address [address] [place] [address] Care Team Providers Care Slurry Control Tender Name Role Phone Julio César Briseno MD Primary Care Provider [phone] Eren Cr MD Unavailable [phone] Yohana Bowen MD Unavailable Encounter Details [...] on file Legal Sex Female 2:41 PM PEOPLESOFT DEVELOPER Gender Identity Not on file Sexual [...] ONC ARIA SESSION SUMMARY 06/10/2019 10:05 AM PEOPLESOFT DEVELOPER documented in this encounter Results * RAD ONC ARIA SESSION SUMMARY (06/10/2019 10:05 AM PEOPLESOFT DEVELOPER) Course Name Lutathera ARIA Course Plan Date [...] (cGy) 800 ARIA 06/10/2019 10:0 5 AM PEOPLESOFT DEVELOPER us Not In File Miscellaneous RADIATION ONCOLOGY ORD ERABLES Final Result ARIA documented in this encounter Visit Diagnoses Not on filedocumented in this encounter Care Teams Slurry Control Tender Relationship Specialty Start Date End Date Julio César Briseno MD PCP - General 10/01/16 Eren Cr MD Referring Physician Medical Oncology 11/25/18 Yohana Bowen MD Radiation Oncologist Radiation Oncology 11/25/18 documented as of this encounter
--- OUTSIDE RECORDS SUMMARY | 2024-06-26 02:17 | XMS_ITS | Encounter Summary ---
Author Organization [facility] Address [address] [place] [address] Care Team Providers Care Mail Weigher Name Role Phone Julio César Briseno MD Primary Care Provider [phone] Eren Cr MD Unavailable [phone] Yohana Bowen MD Unavailable Encounter Details Date Type Department Care Team (Late st Contact Info) Description 07/29/2019 8:30 AM SENIOR BUSINESS DEVELOPMENT ANALYST - 07/29/2019 9:30 AM SENIOR BUSINESS DEVELOPMENT ANALYST Surgery [facility] Operating Room [address] [place] [address] Thea Reeves MD [address] [facility] [phone] [place] [address] FULGURATION PARASTOMAL EPITHELIAL HYPERPLASIA Surgery Details Date/Time [...] file Legal Sex Female 2:41 PM SENIOR BUSINESS DEVELOPMENT ANALYST Gender Identity Not on file Sexual Orientation Straight 02/19/2021 9: 29 AM CDT Occupation Industry Job Start Date Job End Date retired Not on file Not on file Not on file documented as of this encounter Last Filed Vital Signs Vital Sign Reading Time Taken Comments Blood Pressure 132/78 07/29/2019 9:10 AM SENIOR BUSINESS DEVELOPMENT ANALYST Pulse 87 07/29/2019 9:10 AM SENIOR BUSINESS DEVELOPMENT ANALYST Temperature 36.2 ??C (97.2 ??F) 07/29/2019 8:44 AM CS T Respiratory Rate 20 07/29/2019 9:10 AM SENIOR BUSINESS DEVELOPMENT ANALYST Oxygen Saturation 92% 07/29/2019 9:10 AM SENIOR BUSINESS DEVELOPMENT ANALYST Inhaled Oxygen Concentration - - Weight 77.1 kg (170 lb) 07/29/2019 6:18 AM SENIOR BUSINESS DEVELOPMENT ANALYST Height 160 cm (5' 3 ) 07/29/2019 6:18 AM SENIOR BUSINESS DEVELOPMENT ANALYST Body Mass Index 30.11 07/29/2019 6:18 AM SENIOR BUSINESS DEVELOPMENT ANALYST documented in this encounter Discharge Instructions * Attachments The following attachments cannot be sent through Care Everywhere. * Colostomy Care (Discharge Care) (Uruguayan) documented in this encounter Medications at Time of Discharge simvastatin (ZOCOR) 20 mg tablet Take 1 tablet (20 mg total) by mouth nightly ascorbic acid, vitamin C, 500 mg capsuleIndications :supplement Take 1 tablet by mouth foam charger before breakfast 07/04/2016 4 bisacodyl (DULCOLAX) 10 mg suppository Gentle Laxative (bisacodyl) 10 mg rectal suppository USE DIRECTED 0 cholecalciferol (VITAMIN D-3) 2,000 unit capsule Take 1 capsule (2,000 Units total) by mouth daily 30 capsule 2 04/25/2019 3 clotrimazole-betam ethasone (LOTRISONE) cream Apply 1 Application topically daily as needed (rash) 4 coenzyme [id number] E 100-5 mg-unit capsuleIndications :supplement Take 1 tablet by mouth foam charger before breakfast [address] (CYMBALTA) 30 [...] Thea Reeves MD at 07/29/2019 8:21 AM SENIOR BUSINESS DEVELOPMENT ANALYST OR BUSINESS DEVELOPMENT ANALYST OR BUSINESS DEVELOPMENT ANALYST Source Note - Caren Boyce MD - 07/29/2019 7:45 AM SENIOR BUSINESS DEVELOPMENT ANALYST Images from the original note were not [...] a month -- -- Historical Provider, coenzyme I47-[id number] E (CO Q-10, WITH VIT E,) 100-5 [...] Medication protocol when under care of a POT OPERATOR Planned anesthesia: General Team communication plan: oral ET tube Induction: Induction: intravenous and RSI. Postoperative Plan: Postoperative administration opioids intended. No postoperative mechanical ventilation intended. Patient's planned disposition post procedure is Outpatient. Informed Consent: Discussed plan with POT OPERATOR. Anesthesia plan and risks discussed with patient. Consent and Attending signature: I and/or my designee have discussed the anesthesia plan, benefits, possible alternatives, parental presence at time of induction (if indicated), and clinically relevant risks that may include dental injury, unintentional awareness, and/or other complications. The patient and/or parent/legal guardian understand, and agree to proceed. All questions answered. OR BUSINESS DEVELOPMENT ANALYST documented in this encounter Miscellaneous Notes * Op Note - Thea Reeves MD - 07/29/2019 8:27 AM CST SURGEON Thea Reeves MD MAINFRAME ARCHITECT: Renzo Maloney PREOPERATIVE DIAGNOSIS:Hypertrophic epithelial hyperplasia of [...] for the entire case. THEA REEVES M.D. OR BUSINESS DEVELOPMENT ANALYST documented in this encounter Plan of Treatment Not on file documented as of this encounter Procedures Procedure Name Priority Date/Time Associated Diagnosis Comments FULGURATION PARASTOMAL EPITHELIAL HYPERPLASIA 07/29/2019 8:24 AM SENIOR BUSINESS DEVELOPMENT ANALYST 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) Epithelial hyperplasia documented [...] at 0837, Intra-Op Given 07/29/2019 8:37 AM SENIOR BUSINESS DEVELOPMENT ANALYST 20 mL Abdominal Tissue Lactated Ringer's (LR) infusion 30 mL/hr, intravenous, Continuous, Starting on Sat07/29/19 at 0645, Pre-Op New Bag 07/29/2019 8:21 AM SENIOR BUSINESS DEVELOPMENT ANALYST New Bag 07/29/2019 6:38 AM SENIOR BUSINESS DEVELOPMENT ANALYST 30 mL/hr 30 mL/hr sodium chloride 0.9 % irrigation As needed, Starting on Sat07/29/19 at 0837, Intra-Op Given 07/29/2019 8:37 AM SENIOR BUSINESS DEVELOPMENT ANALYST 1,000 mL Surgical Site documented in this encounter Active and Recently Administered Medications Times are shown in SENIOR BUSINESS DEVELOPMENT ANALYST. Continuous Medication Order 07/27/2019 07/28/2019 07/29/2019 Lactated [...] 07/09 documented in this encounter Care Teams Mail Weigher Relationship Specialty Start Date End Date Julio César Briseno MD PCP - General 10/01/16 Eren Cr MD Referring Physician Medical Oncology 11/25/18 Yohana Bowen MD Radiation Oncologist Radiation Oncology 11/25/18 documented as of this encounter
--- OUTSIDE RECORDS SUMMARY | 2024-06-26 02:17 | XMS_ITS | Encounter Summary ---
Author Organization [facility] Healthcare Address [address] [place] [address] Care Team Providers Care Packer Sausage And Wiener Name Role Phone Julio César Briseno MD Primary Care Provider [phone] Eren Cr MD Unavailable Yohana Bowen MD Unavailable Encounter Details Date Type Department Care Team (Late st Contact Info) Description 08/05/2019 7:00 AM CONTACT FINGER ASSEMBLER Office Visit [facility] Radiation Oncology [facility] Advanced Medicine [facility] 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) Social History Tobacco Use Types Packs/Day Years Used Date Smoking Tobacco: Never Smokeless Tobacco: Never Alcohol Use Standard Drinks/Week Comments Yes 1 (1 standard drink = 0.6 oz pur e alcohol) Comments No Sex and Gender Information Value Date Recorded Sex Assigned at Not on file Legal Sex Female 2:41 PM CONTACT FINGER ASSEMBLER Gender Identity Not on file Sexual Orientation Straight 02/19/2021 9: 29 AM CDT Occupation Industry Job Start Date Job End Date retired Not on file Not on file Not on file documented as of this encounter Last Filed Vital Signs Vital Sign Reading Time Taken Comments Blood Pressure 154/67 08/05/2019 12:11 PM CONTACT FINGER ASSEMBLER Pulse 79 08/05/2019 12:11 PM CONTACT FINGER ASSEMBLER Temperature - - Respiratory Rate - - Oxygen Saturation 100% 08/05/2019 12:11 PM CONTACT FINGER ASSEMBLER Inhaled Oxygen Concentration - - Weight 80.3 kg (177 lb) 08/05/2019 7:01 AM CONTACT FINGER ASSEMBLER Height - - Body Mass Index 31.35 07/29/2019 6:18 AM CONTACT FINGER ASSEMBLER documented in this encounter Progress Notes * [...] post-PICC line removal. Pt ambulatory from department. ACT FINGER ASSEMBLER documented in this encounter Procedure Notes * [...] can be properly communicated to treatment teams. ACT FINGER ASSEMBLER ACT FINGER ASSEMBLER documented in this encounter Plan of Treatment Not on file documented as of this encounter Procedures Procedure Name Priority Date/Time Associated Diagnosis Comments DIFFERENTIAL AUTO Routine 08/05/2019 6:5 5 AM CONTACT FINGER ASSEMBLER Malignant neoplasm metastatic to liver (CMS/HCC) IMMUNE DEFICIENCY PROFILE Routine 08/05/2019 6:55 AM CONTACT FINGER ASSEMBLER Malignant neoplasm metastatic to liver (CMS/HCC) CBC WITH AUTO DIFFERENTIAL Routine 08/05/2019 6:55 AM CONTACT FINGER ASSEMBLER Malignant neoplasm metastatic to liver (CMS/HCC) documented in this encounter Results * (ABNORMAL) Differential, auto (08/05/2019 6:55 AM CONTACT FINGER ASSEMBLER) Neutrophil abs 3.8 1.7 - 6.5 K/cumm [facility] Imm gran abs 0.0 0.0 - 0.1 K/cumm [facility] Lymphocyte abs 0.3(L) 0.8 - 3.3 K/cumm [facility] Monocyte abs 0.6 0.2 - 0.8 K[facility] Eosinophil abs 0.1 0.0 - 0.5 K/c[facility] Basophil abs 0.0 0.0 - 0.1 K/cumm [facility] Neutrophil pct 79.7 % [facility] Comment: Interpretive Data Percent cell count reference ranges are not reported, since discordance with absolute values may lead to misinterpretation of CBC data. Current Interpretive Data was last revised on 2017. Imm gran pct 0.4 % [facility] Comment: Interpretive Data Percent cell count reference ranges are not reported, since discordance with absolute values may lead to misinterpretation of CBC data. Current Interpretive Data was last revised on 2017. Lymphocyte pct 6.3 % [facility] Comment: Interpretive Data Percent cell count reference ranges are not reported, since discordance with absolute values may lead to misinterpretation of CBC data. Current Interpretive Data was last revised on 2017. Monocyte pct 11.7 % [facility] Comment: Interpretive Data Percent cell count reference ranges are not reported, since discordance with absolute values may lead to misinterpretation of CBC data. Current Interpretive Data was last revised on 2017. Eosinophil pct 1.5 % [facility] Comment: Interpretive Data Percent cell count reference ranges are not reported, since discordance with absolute values may lead to misinterpretation of CBC data. Current Interpretive Data was last revised on 2017. Basophil pct 0.4 % [facility] Comment: Interpretive Data Percent cell count reference ranges are not reported, since discordance with absolute values may lead to misinterpretation of CBC data. Current Interpretive Data was last revised on 2017. Blood specimen (specimen) 08/05/2019 6:55 AM CONTACT FINGER ASSEMBLER 08/05/2019 7:25 AM CONTACT FINGER ASSEMBLER Yohana Bowen MD LAB BLOOD ORDERABLES Final Resul t Performing Organization Address [facility] Co de Phone Number [facility] [place] [address] * (ABNORMAL) CBC with auto differential (08/05/2019 6:55 AM CONTACT FINGER ASSEMBLER) Pathologist [facility] [place] WBC 4.8 3.8 - 9.9 K/cumm [facility] Hgb 11.9 11.9 - 15.5 g/dL [facility] Hct 34.4(L) 35.6 - 45.5 % [facility] Plt 110(L) 150 - 400 K/cumm [facility] MPV 10.1 9.1 - 12.3 fL [facility] RBC 3.90 3.90 - 5.20 M/cumm [facility] MCV 88.2 81.3 - 96.4 fL [facility] MCH 30.5 27.1 - 33.3 pg [facility] MCHC 34.6 32.3 - 35.7 g/dL [facility] RDW CV 13.9 11.1 - 14.9 % [facility] RDW SD 44.2 35.7 - 48.1 fL [facility] NRBC abs 0.00 0.00 - 0.01 K/cumm [facility] Blood specimen (specimen) 08/05/2019 6:55 AM CONTACT FINGER ASSEMBLER 08/05/2019 7:25 AM CONTACT FINGER ASSEMBLER Yohana Bowen MD LAB BLOOD ORDERABLES Final Resul t Performing Organization Address City/[facility]/ZIP Co de Phone Number [facility] Department [place] [address] * (ABNORMAL) Immune deficiency profile (08/05/2019 6:55 AM CONTACT FINGER ASSEMBLER) Pathologist [facility] [place] CD4 pct 44 31 - 64 % [facility] CD4 Absolute 154(L) 365 - 1,294 cells/mcL [facility] CD8 pct 21 12 - 40 % [facility] CD8 Absolute 74(L) 187 - 781 cells/mcL [facility] CD4/CD8 ratio 2.1 0.9 - 4.4 [facility] Blood specimen (specimen) 08/05/2019 6:55 AM CONTACT FINGER ASSEMBLER 08/05/2019 7:25 AM CONTACT FINGER ASSEMBLER us Yohana Bowen MD LAB BLOOD ORDERABLES Final Resul t [facility] [place] [address] documented in this encounter Visit Diagnoses Diagnosis [...] carcinoma (HCC) New Bag 08/05/2019 9:19 AM CONTACT FINGER ASSEMBLER 1,000 mL New Bag 08/05/2019 7:11 AM CONTACT FINGER ASSEMBLER 1,000 mL 500 mL/hr ondansetron (ZOFRAN) injection 8 mg 8 mg, intravenous, Administer over 2 Minutes, Once, On Sat08/05/19 at 1145, For 1 doseIndications:Neuroendocrine carcinoma (HCC) Given 08/05/2019 11:21 AM CONTACT FINGER ASSEMBLER 8 mg sodium chloride 0.9% infusion 50 mL/hr, intravenous, Continuous, Starting on Sat08/05/19 at 0800Indications:Neuroendocrine carcinoma (HCC) New Bag 08/05/2019 8:05 AM CONTACT FINGER ASSEMBLER 50 mL/hr 50 mL/hr documented in this encounter Care Teams Packer Sausage And Wiener Relationship Specialty Start Date End Date Julio César Briseno MD PCP - General 10/01/16 Eren Cr MD Referring Physician Medical Oncology 11/25/18 Yohana Bowen MD Radiation Oncologist Radiation Oncology 11/25/18 documented as of this encounter
--- OUTSIDE RECORDS SUMMARY | 2024-06-26 02:17 | XMS_ITS | Encounter Summary ---
Author Organization [facility] Address [address] [place] [address] Phone Care Team Providers Care Die Developer Name Role Phone Julio César Briseno MD Primary Care Provider Eren Cr MD Unavailable [phone] Yohana Bowen MD Unavailable Reason for Visit * Reason Onset Date Comments confirm surgery 07/28/2019 Encounter Details Date Type Department Care Team (Late st Contact Info) Description 07/28/2019 Telephone [facility] Surgery [address] [place] [address] Delfina Galloway RMA confirm surgery Social History Tobacco Use Types Packs/Day Years Used Date Smoking Tobacco: Never Smokeless Tobacco: Never Alcohol Use Standard Drinks/Week Comments Yes 1 (1 standard drink = 0.6 oz pur e alcohol) Comments No Sex and Gender Information Value Date Recorded Sex Assigned at Not on file 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 CHILD DEVELOPMENT CENTER Gender Identity Not on file Sexual Orientation Straight 02/19/2021 9: 29 AM CDT Occupation Industry Job Start Date Job End Date retired Not on file Not on file Not on file documented as of this encounter Miscellaneous Notes * Telephone Encounter - Delfina Galloway RMA - 07/28/2019 12:21 PM DIRECTOR CHILD DEVELOPMENT CENTER Spoke to patient to confirm surgery for tomorrow. Arrival time [address] 3[address] floor, surgery registration NPO after midnight and a roll off driver is needed to take her home after procedure. Patient verbalized understanding. [facility] CHILD DEVELOPMENT CENTER documented in this encounter Plan of Treatment Not on file documented as of this encounter Visit Diagnoses Not on filedocumented in this encounter Care Teams Die Developer Relationship Specialty Start Date End Date Julio César Briseno MD PCP - General 10/01/16 Eren Cr MD Referring Physician Medical Oncology 11/25/18 Yohana Bowen MD Radiation Oncologist Radiation Oncology 11/25/18 documented as of this encounter
--- OUTSIDE RECORDS SUMMARY | 2024-06-26 02:17 | XMS_ITS | Encounter Summary ---
Author Organization [facility] Address [address] [place] [address] Phone Care Team Providers Care Industrial Safety And Health Technician Name Role Phone Julio César Briseno MD Primary Care Provider Eren Cr MD Unavailable [phone] Yohana Bowen MD Unavailable Reason for Visit * Reason Comments Ostomy Care Encounter Details Date Type Department Care Team (Latest Contact Info) Description 07/21/2019 10:00 AM RES COUNSELOR Clinical Support [facility] 8th [place] [address] [place] [address] ([facility]) (Primary Dx) Social History Tobacco Use Types Packs/Day Years Used Date Smoking Tobacco: Never Smokeless Tobacco: Never Alcohol Use Standard Drinks/Week Comments Yes 1 (1 standard drink = 0.6 oz pur e alcohol) Comments No Sex and Gender Information Value Date Recorded Sex Assigned at Not on file Legal Sex Female 2:41 PM RES COUNSELOR Gender Identity Not on file Sexual [...] was educated on PEH symptoms and causes. 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
--- OUTSIDE RECORDS SUMMARY | 2024-06-26 02:17 | XMS_ITS | Encounter Summary ---
Author Organization [facility] Address [address] [place] [address] Phone Care Team Providers Care Timber Skidder Name Role Phone Julio César Briseno MD Primary Care Provider Eren Cr MD Unavailable Yohana Bowen MD Unavailable Encounter Details Date Type Department Care Team (Late st Contact Info) Description 07/16/2019 Orders Only [facility] Oncology [address] [facility] Advanced Medicine 7th [place] [address] [place] [address] Jeevan Martino, [place] [address] [place], [place] [id number] Social History Tobacco Use Types Packs/Day Years Used Date Smoking Tobacco: Never Smokeless Tobacco: Never Alcohol Use Standard Drinks/Week Comments Yes 1 (1 standard drink = 0.6 oz pur e alcohol) Comments No Sex and Gender Information Value Date Recorded Sex Assigned at Not on file Legal Sex Female 2:41 PM HOUSEHOLD REFRIGERATOR MECHANIC Gender Identity Not on file Sexual Orientation Straight 02/19/2021 9: 29 AM CDT Occupation Industry Job Start Date Job End Date retired Not on file Not on file Not on file documented as of this encounter Plan of Treatment Not on file documented as of this encounter Visit Diagnoses Not on filedocumented in this encounter Care Teams Timber Skidder Relationship Specialty Start Date End Date Julio César Briseno MD PCP - General 10/01/16 Eren Cr MD Referring Physician Medical Oncology 11/25/18 Yohana Bowen MD Radiation Oncologist Radiation Oncology 11/25/18 documented as of this encounter
--- OUTSIDE RECORDS SUMMARY | 2024-06-26 02:17 | XMS_ITS | Encounter Summary ---
Author Organization [facility] Care Team Providers Care Tractor Operator Helper Name Role Phone Julio César Briseno MD Primary Care Provider [phone] Eren Cr MD Unavailable [phone] Yohana Bowen MD Unavailable Encounter Details [...] on file Legal Sex Female 2:41 PM LEG ASSEMBLER Gender Identity Not on file Sexual Orientation Straight 02/19/2021 9: 29 AM CDT Occupation Industry Job Start Date Job End Date retired Not on file Not on file Not on file documented as of this encounter Plan of Treatment Not on file documented as of this encounter Visit Diagnoses Not on filedocumented in this encounter Care Teams Tractor Operator Helper Relationship Specialty Start Date End Date Julio César Briseno MD PCP - General 10/01/16 Eren Cr MD Referring Physician Medical Oncology 11/25/18 Yohana Bowen MD Radiation Oncologist Radiation Oncology 11/25/18 documented as of this encounter
--- OUTSIDE RECORDS SUMMARY | 2024-06-26 02:17 | XMS_ITS | Encounter Summary ---
Author Organization [facility] Address [address] [place] [address] Phone Care Team Providers Care Hospital Cleaning Specialist Name Role Phone Julio César Briseno MD Primary Care Provider [phone] Eren Cr MD Unavailable [phone] Yohana Bowen MD Unavailable Encounter Details Date Type Department Care Team (Late st Contact Info) Description 08/04/2019 Orders Only [facility] Oncology [address] [place] [address] Sabrina Willard, SACK SORTER [address] [place], [place] [id number] Social History Tobacco Use Types Packs/Day Years Used Date Smoking Tobacco: Never Smokeless Tobacco: Never Alcohol Use Standard Drinks/Week Comments Yes 1 (1 standard drink = 0.6 oz pur e alcohol) Comments No Sex and Gender Information Value Date Recorded Sex Assigned at Not on file 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 NETWORK DEVELOPMENT Gender Identity Not on file Sexual Orientation Straight 02/19/2021 9: 29 AM CDT Occupation Industry Job Start Date Job End Date retired Not on file Not on file Not on file documented as of this encounter Plan of Treatment Not on file documented as of this encounter Visit Diagnoses Not on filedocumented in this encounter Care Teams Hospital Cleaning Specialist Relationship Specialty Start Date End Date Julio César Briseno MD PCP - General 10/01/16 Eren Cr MD Referring Physician Medical Oncology 11/25/18 Yohana Bowen MD Radiation Oncologist Radiation Oncology 11/25/18 documented as of this encounter
--- OUTSIDE RECORDS SUMMARY | 2024-06-26 02:17 | XMS_ITS | Encounter Summary ---
Author Organization [facility] Address [address] [place] [address] Phone Care Team Providers Care Esol Teacher Assistant Name Role Phone Julio César Briseno MD Primary Care Provider [phone] Eren Cr MD Unavailable Yohana Bowen MD Unavailable Encounter Details Date Type Department Care Team (Late st Contact Info) Description 08/04/2019 Orders Only [facility] Oncology [address] [place] [address] Sola Heredia Social History Tobacco Use Types Packs/Day Years Used Date Smoking Tobacco: Never Smokeless Tobacco: Never Alcohol Use Standard Drinks/Week Comments Yes 1 (1 standard drink = 0.6 oz pur e alcohol) Comments No Sex and Gender Information Value Date Recorded Sex Assigned at Not on file Legal Sex Female 2:41 PM STATION CLEANING PORTER Gender Identity Not on file Sexual Orientation Straight 02/19/2021 9: 29 AM CDT Occupation Industry Job Start Date Job End Date retired Not on file Not on file Not on file documented as of this encounter Plan of Treatment Not on file documented as of this encounter Visit Diagnoses Not on filedocumented in this encounter Care Teams Esol Teacher Assistant Relationship Specialty Start Date End Date Julio César Briseno MD PCP - General 10/01/16 Eren Cr MD Referring Physician Medical Oncology 11/25/18 Yohana Bowen MD Radiation Oncologist Radiation Oncology 11/25/18 documented as of this encounter
--- OUTSIDE RECORDS SUMMARY | 2024-06-26 02:17 | XMS_ITS | Encounter Summary ---
Author Organization [facility] Address [address] [place] [address] Phone Care Team Providers Care Livestock Auctioneer Name Role Phone Julio César Briseno MD Primary Care Provider [phone] Eren Cr MD Unavailable [phone] Yohana Bowen MD Unavailable Reason for Visit * Auth/Cert Specialty Diagnoses / Procedures Referred By Evelyne t Referred To Contact Referral ID Status Reason Start Date Expiration Date Visits Re quested Visits Authorized [id number] 1 1 Encounter Details Date Type Department Care Team (Latest Contact Info) Description 06/16/2019 1:00 AM DISPATCHER SERVICE Home Care Visit [facility] [address] [address] [address] [place] [address] Anne-Marie Goldstein OT OT DISCIPLINE DISCHARGE Social History Tobacco Use Types Packs/Day Years Used Date Smoking Tobacco: Never Smokeless Tobacco: Never Alcohol Use Standard Drinks/Week Comments Yes 1 (1 standard drink = 0.6 oz pur e alcohol) Comments No Sex and Gender Information Value Date Recorded Sex Assigned at Not on file Legal Sex Female 2:41 PM DISPATCHER SERVICE Gender Identity Not on file Sexual Orientation [...] discharge. documented in this encounter Care Teams Livestock Auctioneer Relationship Specialty Start Date End Date Julio César Briseno MD PCP - General 10/01/16 Eren Cr MD Referring Physician Medical Oncology 11/25/18 Yohana Bowen MD Radiation Oncologist Radiation Oncology 11/25/18 documented as of this encounter
--- OUTSIDE RECORDS SUMMARY | 2024-06-26 02:17 | XMS_ITS | Encounter Summary ---
Author Organization [facility] Address [address] [place] [address] Phone Care Team Providers Care Bilingual School Psychologist Name Role Phone Julio César Briseno MD Primary Care Provider Eren Cr MD Unavailable [phone] Yohana Bowen MD Unavailable Encounter Details Date Type Department Care Team (Late st Contact Info) Description 07/20/2019 11:30 AM PAINT TESTER Office Visit [facility] Oncology [facility] 7th [place] [address] [place] [address] Eren Cr MD [address] [facility] [address] [place] [address] Neuro-endocrine carcinoma (CMS/HCC); Malignant neoplasm metastatic to liver (CMS/HCC) Social History Tobacco Use Types Packs/Day Years Used Date Smoking Tobacco: Never Smokeless Tobacco: Never Alcohol Use Standard Drinks/Week Comments Yes 1 (1 standard drink = 0.6 oz pur e alcohol) Comments No Sex and Gender Information Value Date Recorded Sex Assigned at Not on file Legal Sex Female 2:41 PM PAINT TESTER Gender Identity Not on file Sexual Orientation Straight 02/19/2021 9: 29 AM CDT Occupation Industry Job Start Date Job End Date retired Not on file Not on file Not on file documented as of this encounter Last Filed Vital Signs Vital Sign Reading Time Taken Comments Blood Pressure 146/87 07/20/2019 11:59 AM PAINT TESTER Pulse 89 07/20/2019 11:59 AM PAINT TESTER Temperature 37.1 ??C (98.7 ??F) 07/20/2019 1 1:59 AM PAINT TESTER Respiratory Rate 18 07/20/2019 11:5 9 AM PAINT TESTER Oxygen Saturation 98% 07/20/2019 11: 59 AM PAINT TESTER Inhaled Oxygen Concentration - - Weight 78.8 kg (173 lb 12.8 oz) 020 11:59 AM PAINT TESTER Height - - Body Mass Index 30.79 06/18/2019 2:18 PM PAINT TESTER documented in this encounter Progress Notes [...] 234. MERLINE Redmond- Nurse Practitioner Medical Oncology Jewel Inserter completed by using IDverge Direct speaking software, therefore, transcriptionvariances may occur. Cosigned by Eren Cr Jr., MD at 07/26/2019 10:01 AM PAINT TESTER T TESTER T TESTER documented in this encounter Plan of Treatment Not on file documented as of this encounter Results * (ABNORMAL) CBC with auto differential (08/17/2019 9:47 AM PAINT TESTER) WBC 3.5(L) 3.8 - 9.8 K/cumm [facility] Comment:Testing performed by : [facility], [address] [place] [phone] Hgb 12.5 12.1 - 15.1 g/dL [facility] Comment:Testing performed by : [facility], [address] [place] [phone] Hct 36.3 36.1 - 44.3 % [facility] Comment:Testing performed by : [facility], [address] [place] [phone] Plt 104(L) 140 - 440 K/cumm [facility] Comment:Testing performed by : [facility], [address] [place] [phone] MPV 7.6 6.8 - 10.4 fL [facility] Comment:Testing performed by : [facility], [address] [place] [phone] RBC 3.98 3.90 - 5.00 M/cumm [facility] Comment:Testing performed by : [facility], [address] [place], [place] [phone] MCV 91.2 80.0 - 97.6 fL [facility] Comment:Testing performed by : [facility], [address] [place] [phone] MCH 31.3 26.7 - 33.7 pg [facility] Comment:Testing performed by : [facility], [address] [place] [phone] MCHC 34.4 32.7 - 35.5 g/dL [facility] Comment:Testing performed by : [facility], [address] [place] [phone] RDW CV 15.0(H) 11.8 - 14.6 % [facility] Comment:Testing performed by : [facility], [address] [place] [phone] NRBC abs 0.00 0.00 - 0.01 K/cumm [facility] Comment:Testing performed by : [facility], [address] [place] [phone] Blood specimen (specimen) 08/17/2019 9:47 AM PAINT TESTER 08/17/2019 9:49 AM PAINT TESTER Sabrina Willard NP LAB BLOOD ORDERABLES Final R esult [facility] Department [place] [address] * Comprehensive metabolic panel (08/17/2019 9:40 AM PAINT TESTER) Sodium 143 135 - 145 mmol/L [facility] Potassium, pl 4.3 3.3 - 4.9 mmol/L [facility] Chloride 108 97 - 110 mmol/L [facility] CO2 31 22 - 32 mmol/L [facility] Anion gap 4 2 - 15 mmol/L [facility] BUN 11 8 - 25 mg/dL [facility] Creatinine 0.78 0.60 - 1.10 mg/dL [facility] Glucose 122 70 - 199 mg/dL [facility] [...] 2017. Calcium 10.1 8.5 - 10.3 mg/dL [facility] Bilirubin, total 0.4 0.1 - 1.2 mg/dL [facility] Protein, pl 6.6 6.5 - 8.5 g/dL [facility] Albumin 4.2 3.5 - 5.0 g/dL [facility] Alk phos 67 40 - 130 Units/L [facility] ALT 13 7 - 45 Units/L [facility] AST 23 10 - 45 Units/L [facility] Blood specimen (specimen) 08/17/2019 9:40 AM PAINT TESTER 08/17/2019 10:05 AM PAINT TESTER Sabrina Willard NP LAB BLOOD ORDERABLES Final R esult [facility] [place] [address] * (ABNORMAL) Chromogranin A (08/17/2019 9:40 AM PAINT TESTER) Chromogranin A 273(H) <93 ng/mL [facility] Comment: Impaired renal or hepatic [...] absence of malignant disease. Test Performed by: [facility] [address] [place] [address] Public Transit Trolley Driver: Immanuel Novak M.D. Ph.D.; CLIA# [id number] Blood specimen (specimen) 08/17/2019 9:40 AM PAINT TESTER 08/17/2019 10:07 AM PAINT TESTER us Sabrina Willard CONSTRUCTION EQUIPMENT MECHANIC HELPER LAB BLOOD ORDERABLES Final R esult Performing Organization Address City/State/[facility] Co de Phone Number [facility] Department [place] [address] documented in this encounter Visit Diagnoses Diagnosis [...] 08/17/2019 documented in this encounter Care Teams Bilingual School Psychologist Relationship Specialty Start Date End Date Julio César Briseno MD PCP - General 10/01/16 Eren Cr MD Referring Physician Medical Oncology 11/25/18 Yohana Bowen MD Radiation Oncologist Radiation Oncology 11/25/18 documented as of this encounter
--- OUTSIDE RECORDS SUMMARY | 2024-06-26 02:17 | XMS_ITS | Encounter Summary ---
Author Organization [facility] Facility Care Team Providers Care Environmental Inspector Name Role Phone Julio César Briseno MD Primary Care Provider [phone] Eren Cr MD Unavailable [phone] Yohana Bowen MD Unavailable Encounter Details [...] on filedocumented in this encounter Care Teams Environmental Inspector Relationship Specialty Start Date End Date Julio César Briseno MD PCP - General 10/01/16 Eren Cr MD Referring Physician Medical Oncology 11/25/18 Yohana Bowen MD Radiation Oncologist Radiation Oncology 11/25/18 documented as of this encounter
--- OUTSIDE RECORDS SUMMARY | 2024-06-26 02:17 | XMS_ITS | Encounter Summary ---
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) Procedures SD OCTREOTIDE INJECTION, DEPOT Octreotide 28 Day Cycles - Carcinoid Eren Cr MD [address] [facility] [address] [place] [address] Phone: tel: fax: [facility] Cancer [address] [address] Phone: tel: fax: Referral ID Status Reason Start Date Expiration Date V isits Requested Visits Authorized [id number] Authorized 11/28/2017 02/05/2025 1 150 Encounter Details Date Type Department Care Team (Late st Contact Info) Description 08/05/2019 3:00 PM 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 SERVICES WORKER Infusion [facility] Oncology [facility] 7th [place] [address] Neuroendocrine carcinoma (CMS/HCC) (Primary Dx); Malignant neoplasm [...] Blood Pressure 158/79 08/05/2019 12:50 PM 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 SERVICES WORKER Pulse 77 08/05/2019 12:50 PM 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 SERVICES WORKER Temperature 36.7 ??C (98.1 ??F) 08/05/2019 12:[address] Respiratory Rate 18 08/05/2019 12:50 PM 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 SERVICES WORKER Oxygen Saturation 97% 08/05/2019 12:50 PM 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 SERVICES WORKER Inhaled Oxygen Concentration - - Weight - - Height - - Body Mass Index - - documented in this encounter Nursing Notes * Brooklyn Sims RN - 08/05/2019 3:00 PM CST Patient tolerated octreotide injection well. Discharged ambulatory with . RONMENTAL SERVICES WORKER documented in this encounter Plan of [...] carcinoma (HCC) Given 08/05/2019 1:00 PM 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 SERVICES WORKER 30 mg Left Dorsogluteal/Butt ock documented in this encounter Orders Medications Ordered That Brett ht Not Have Been Administered Count Last Ordered Date First Ordered Date octreotide LAR (SandoSTATIN LAR) extended release intramuscular injection 30 mg 1 08/05/2019 Appointment Requests Count Last Ordered Date Fi rst Ordered Date ONCBCN INJECTION APPOINTMENT REQUEST 1 07/09 documented in this encounter Care Teams Metrology Engineer Relationship Specialty Start Date End Date Julio César Briseno MD PCP - General 10/01/16 Eren Cr MD Referring Physician Medical Oncology 11/25/18 Yohana Bowen MD Radiation Oncologist Radiation Oncology 11/25/18 documented as of this encounter
--- OUTSIDE RECORDS SUMMARY | 2024-06-26 02:17 | XMS_ITS | Encounter Summary ---
Author Organization [facility] Facility Care Team Providers Care Bird Sitter Name Role Phone Julio César Briseno MD Primary Care Provider [phone] Eren Cr MD Unavailable [phone] Yohana Bowen MD Unavailable Encounter Details [...] file Legal Sex Female 2:41 PM RN EMERGENCY ROOM Gender Identity Not on file Sexual Orientation Straight 02/19/2021 9: 29 AM CDT Occupation Industry Job Start Date Job End Date retired Not on file Not on file Not on file documented as of this encounter Plan of Treatment Not on file documented as of this encounter Visit Diagnoses Not on filedocumented in this encounter Care Teams Bird Sitter Relationship Specialty Start Date End Date Julio César Briseno MD PCP - General 10/01/16 Eren Cr MD Referring Physician Medical Oncology 11/25/18 Yohana Bowen MD Radiation Oncologist Radiation Oncology 11/25/18 documented as of this encounter
--- OUTSIDE RECORDS SUMMARY | 2024-06-26 02:17 | XMS_ITS | Encounter Summary ---
Author Organization [facility] Healthcare Address [address] [place] [address] Care Team Providers Care Legislative Correspondent Name Role Phone Julio César Briseno MD Primary Care Provider [phone] Eren Cr MD Unavailable Yohana Bowen MD Unavailable Encounter Details Date Type Department Care Team (Late st Contact Info) Description 06/10/2019 7:00 AM ANIMATED CARTOONS PAINTER Office Visit [facility] Radiation Oncology [address] [place] [address] Advanced Medicine [facility] [place] [address] Yohana Bowen MD [address] [place] [address] [address] [place] [address] [place] [address] [place], [place] [id number] [place] [address] Neuroendocrine carcinoma (CMS/HCC) Social History Tobacco Use Types Packs/Day Years Used Date Smoking Tobacco: Never Smokeless Tobacco: Never Alcohol Use Standard Drinks/Week Comments Yes 1 (1 standard drink = 0.6 oz pur e alcohol) Comments No Sex and Gender Information Value Date Recorded Sex Assigned at Not on file Legal Sex Female 2:41 PM ANIMATED CARTOONS PAINTER Gender Identity Not on file Sexual Orientation Straight 02/19/2021 9: 29 AM CDT Occupation Industry Job Start Date Job End Date retired Not on file Not on file Not on file documented as of this encounter Last Filed Vital Signs Vital Sign Reading Time Taken Comments Blood Pressure 120/57 06/10/2019 12:40 PM ANIMATED CARTOONS PAINTER Pulse 78 06/10/2019 12:40 PM ANIMATED CARTOONS PAINTER Temperature - - Respiratory Rate - - Oxygen Saturation 100% 06/10/2019 12:40 PM ANIMATED CARTOONS PAINTER Inhaled Oxygen Concentration - - Weight 77.2 kg (170 lb 4.8 oz) 06/10/2019 7:16 A M ANIMATED CARTOONS PAINTER Height - - Body Mass Index 30.17 05/14/2019 2:48 PM ANIMATED CARTOONS PAINTER documented in this encounter Progress Notes * [...] can be properly communicated to treatment teams. ATED CARTOONS PAINTER * Huy Landis RN - 06/10/2019 7:00 [...] Meagan Amaya MD at 06/10/2019 6:56 PM ANIMATED CARTOONS PAINTER ATED CARTOONS PAINTER ATED CARTOONS PAINTER documented in this encounter Plan of Treatment Not on file documented as of this encounter Procedures Procedure Name Priority Date/Time Associated Diagnosis Comments DIFFERENTIAL AUTO Routine 06/10/2019 7:3 2 AM ANIMATED CARTOONS PAINTER Neuroendocrine carcinoma (CMS/HCC) IMMUNE DEFICIENCY PROFILE Routine 06/10/2019 7:32 AM ANIMATED CARTOONS PAINTER Neuroendocrine carcinoma (CMS/HCC) CBC WITH AUTO DIFFERENTIAL Routine 06/10/2019 7:32 AM ANIMATED CARTOONS PAINTER Neuroendocrine carcinoma (CMS/HCC) documented in this encounter Results * (ABNORMAL) Differential, auto (06/10/2019 7:32 AM ANIMATED CARTOONS PAINTER) Neutrophil abs 3.3 1.7 - 6.5 K/cumm [facility] Imm gran abs 0.0 0.0 - 0.1 K/cumm [facility] Lymphocyte abs 0.3(L) 0.8 - 3.3 K/cumm [facility] Monocyte abs 0.7 0.2 - 0.8 K/cumm [facility] Eosinophil abs 0.1 0.0 - 0.5 K/cumm [facility] Basophil abs 0.0 0.0 - 0.1 K/cumm [facility]rophil pct 73.3 % [facility] Comment: Interpretive Data Percent cell count reference ranges are not reported, since discordance with absolute values may lead to misinterpretation of CBC data. Current Interpretive Data was last revised on 2017. Imm gran pct 0.4 % [facility] Comment: Interpretive Data Percent cell count reference ranges are not reported, since discordance with absolute values may lead to misinterpretation of CBC data. Current Interpretive Data was last revised on 2017. Lymphocyte pct 7.5 % [facility] Comment: Interpretive Data Percent cell count reference ranges are not reported, since discordance with absolute values may lead to misinterpretation of CBC data. Current Interpretive Data was last revised on 2017. Monocyte pct 15.2 % [facility] Comment: Interpretive Data Percent cell count reference ranges are not reported, since discordance with absolute values may lead to misinterpretation of CBC data. Current Interpretive Data was last revised on 2017. Eosinophil pct 2.9 % [facility] Comment: Interpretive Data Percent cell count reference ranges are not reported, since discordance with absolute values may lead to misinterpretation of CBC data. Current Interpretive Data was last revised on 2017. Basophil pct 0.7 % [facility] Comment: Interpretive Data Percent cell count reference ranges are not reported, since discordance with absolute values may lead to misinterpretation of CBC data. Current Interpretive Data was last revised on 2017. Blood specimen (specimen) 06/10/2019 7:32 AM ANIMATED CARTOONS PAINTER 06/10/2019 7:57 AM ANIMATED CARTOONS PAINTER us Yohana Bowen MD LAB BLOOD ORDERABLES Final Resul t [facility] One [facility] Department [place] [address] * (ABNORMAL) CBC with auto differential (06/10/2019 7:32 AM ANIMATED CARTOONS PAINTER) WBC 4.5 3.8 - 9.9 K/cumm [facility] Hgb 11.7(L) 11.9 - 15.5 g/dL [facility] Hct 35.4(L) 35.6 - 45.5 % [facility] Plt 124(L) 150 - 400 K/cumm [facility] MPV 10.8 9.1 - 12.3 fL [facility] RBC 3.93 3.90 - 5.20 M/cumm [facility] MCV 90.1 81.3 - 96.4 fL [facility] MCH 29.8 27.1 - 33.3 pg [facility] MCHC 33.1 32.3 - 35.7 g/dL [facility] RDW CV 14.1 11.1 - 14.9 % [facility] RDW SD 46.6 35.7 - 48.1 fL [facility] NRBC abs 0.00 0.00 - 0.01 K/cumm [facility] Blood specimen (specimen) 06/10/2019 7:32 AM ANIMATED CARTOONS PAINTER 06/10/2019 7:57 AM ANIMATED CARTOONS PAINTER us Yohana Bowen MD LAB BLOOD ORDERABLES Final Resul t Performing Organization Address [facility] [place] [address] * (ABNORMAL) Immune deficiency profile (06/10/2019 7:32 AM ANIMATED CARTOONS PAINTER) Pathologist [facility] CD4 pct 44 31 - 64 % [facility] CD4 Absolute 164(L) 365 - 1,294 cells/mcL [facility] CD8 pct 29 12 - 40 % [facility] CD8 Absolute 110(L) 187 - 781 cells/mcL [facility] CD4/CD8 ratio 1.5 0.9 - 4.4 [facility] Blood specimen (specimen) 06/10/2019 7:32 AM ANIMATED CARTOONS PAINTER 06/10/2019 7:41 AM ANIMATED CARTOONS PAINTER us Yohana Bowen MD LAB BLOOD ORDERABLES Final Resul t Performing Organization Address [facility] [place] [address] documented in this encounter Visit Diagnoses Diagnosis [...] carcinoma (HCC) New Bag 06/10/2019 9:35 AM ANIMATED CARTOONS PAINTER 1,000 mL 475 mL /hr New Bag 06/10/2019 7:30 AM ANIMATED CARTOONS PAINTER 1,000 mL 500 mL/hr sodium chloride 0.9% infusion 50 mL/hr, intravenous, Continuous, Starting on Sat06/10/19 at 0800Indications:Neuroendocrine carcinoma (HCC) New Bag 06/10/2019 8:19 AM ANIMATED CARTOONS PAINTER 50 mL/hr 50 mL/hr documented in this encounter Care Teams Legislative Correspondent Relationship Specialty Start Date End Date Julio César Briseno MD PCP - General 10/01/16 Eren Cr MD Referring Physician Medical Oncology 11/25/18 Yohana Bowen MD Radiation Oncologist Radiation Oncology 11/25/18 documented as of this encounter
--- OUTSIDE RECORDS SUMMARY | 2024-06-26 02:17 | XMS_ITS | Encounter Summary ---
Author Organization [facility] Healthcare Address [address] [place] [address] Care Team Providers Care Remittance Clerk Name Role Phone Julio César Briseno MD Primary Care Provider Eren Cr MD Unavailable Yohana Bowen MD Unavailable Encounter Details Date Type Department Care Team (Latest Contact Info) Description 07/29/2019 5:54 AM OFFICE MACHINES WIRER - 07/29/2019 9:30 AM OFFICE MACHINES WIRER Hospital Encounter [facility] Operating Room [address] [place] [address] Thea Reeves MD [address] [facility] [phone] [place] [address] Discharge Disposition: Discharge to home or self care Social History Tobacco Use Types Packs/Day Years Used Date Smoking Tobacco: Never Smokeless Tobacco: Never Alcohol Use Standard Drinks/Week Comments Yes 1 (1 standard drink = 0.6 oz pur e alcohol) Comments No Sex and Gender Information Value Date Recorded Sex Assigned at Not on file Legal Sex Female 2:41 PM OFFICE MACHINES WIRER Gender Identity Not on file Sexual Orientation Straight 02/19/2021 9: 29 AM CDT Occupation Industry Job Start Date Job End Date retired Not on file Not on file Not on file documented as of this encounter Last Filed Vital Signs Vital Sign Reading Time Taken Comments Blood Pressure 132/78 07/29/2019 9:10 AM OFFICE MACHINES WIRER Pulse 87 07/29/2019 9:10 AM OFFICE MACHINES WIRER Temperature 36.2 ??C (97.2 ??F) 07/29/2019 8:44 AM CS T Respiratory Rate 20 07/29/2019 9:10 AM OFFICE MACHINES WIRER Oxygen Saturation 92% 07/29/2019 9:10 AM OFFICE MACHINES WIRER Inhaled Oxygen Concentration - - Weight 77.1 kg (170 lb) 07/29/2019 6:18 AM OFFICE MACHINES WIRER Height 160 cm (5' 3 ) 07/29/2019 6:18 AM OFFICE MACHINES WIRER Body Mass Index 30.11 07/29/2019 6:18 AM OFFICE MACHINES WIRER documented in this encounter Discharge Diagnoses Diagnosis [...] Care Everywhere. * Colostomy Care (Discharge Care) (Gibraltarian) documented in this encounter Medications at Time of Discharge simvastatin (ZOCOR) 20 mg tablet Take 1 tablet (20 mg total) by mouth nightly ascorbic acid, vitamin C, 500 mg capsuleIndications :supplement Take 1 tablet by mouth rubber attacher before breakfast 07/04/2016 4 bisacodyl (DULCOLAX) 10 mg suppository Gentle Laxative (bisacodyl) 10 mg rectal suppository USE DIRECTED 0 cholecalciferol (VITAMIN D-3) 2,000 unit capsule Take 1 capsule (2,000 Units total) by mouth daily 30 capsule 2 04/25/2019 3 clotrimazole-betam ethasone (LOTRISONE) cream Apply 1 Application topically daily as needed (rash) 4 coenzyme [id number] 100-5 mg-unit capsuleIndications :supplement Take 1 tablet by mouth rubber attacher before breakfast [address] (CYMBALTA) 30 [...] Thea Reeves MD at 07/29/2019 8:21 AM OFFICE MACHINES WIRER CE MACHINES WIRER CE MACHINES WIRER Source Note - Caren Boyce MD - 07/29/2019 7:45 AM OFFICE MACHINES WIRER Images from the original note were not [...] > 5 YEARS N/A 06/09/2019 ? ? [place] REMOVAL OF TONSILS,<12 Y/O [...] a month -- -- Historical Provider, coenzyme [id number] E (CO Q-10, WITH VIT E,) 100-5 [...] Medication protocol when under care of a BUSINESS MANAGEMENT CONSULTANT Planned anesthesia: General Team communication plan: oral ET tube Induction: Induction: intravenous and RSI. Postoperative Plan: Postoperative administration opioids intended. No postoperative mechanical ventilation intended. Patient's planned disposition post procedure is Outpatient. Informed Consent: Discussed plan with BUSINESS MANAGEMENT CONSULTANT. Anesthesia plan and risks discussed with patient. Consent and Attending signature: I and/or my designee have discussed the anesthesia plan, benefits, possible alternatives, parental presence at time of induction (if indicated), and clinically relevant risks that may include dental injury, unintentional awareness, and/or other complications. The patient and/or parent/legal guardian understand, and agree to proceed. All questions answered. CE MACHINES WIRER documented in this encounter Miscellaneous Notes * Op Note - Thea Reeves MD - 07/29/2019 8:27 AM CST SURGEON Thea Reeves MD GRAVURE PRINTING MACHINIST: Renzo Maloney PREOPERATIVE DIAGNOSIS:Hypertrophic epithelial hyperplasia of [...] for the entire case. THEA REEVES M.D. 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 Continuous Medication Order 07/27/2019 07/28/2019 07/29/2019 Lactated [...] 07/09 documented in this encounter Care Teams Remittance Clerk Relationship Specialty Start Date End Date Julio César Briseno MD PCP - General 10/01/16 Eren Cr MD Referring Physician Medical Oncology 11/25/18 Yohana Bowen MD Radiation Oncologist Radiation Oncology 11/25/18 documented as of this encounter
--- OUTSIDE RECORDS SUMMARY | 2024-06-26 02:17 | XMS_ITS | Encounter Summary ---
Author Organization [facility] Address [address] [facility] [address] [place] [address] Phone Care Team Providers Care Size Worker Name Role Phone Julio César Briseno MD Primary Care Provider Eren Cr MD Unavailable [phone] Yohana Bowen MD Unavailable Reason for Visit * Reason Comments neuroendocrine carcinoma colostomy in place Encounter Details Date Type Department Care Team (Late st Contact Info) Description 06/18/2019 2:15 PM DEMURRAGE AGENT Office Visit [facility] Surgery [address] [facility] 2nd Floor [address] [place] [address] Greyson Reeves MD [address] [facility] [phone] [place] 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) (Primary Dx); Neuro-endocrine carcinoma (CMS/HCC) Social History Tobacco Use Types Packs/Day Years Used Date Smoking Tobacco: Never Smokeless Tobacco: Never Alcohol Use Standard Drinks/Week Comments Yes 1 (1 standard drink = 0.6 oz pur e alcohol) Comments No Sex and Gender Information Value Date Recorded Sex Assigned at Not on file Legal Sex Female 2:41 PM DEMURRAGE AGENT Gender Identity Not on file Sexual Orientation Straight 02/19/2021 9: 29 AM CDT Occupation Industry Job Start Date Job End Date retired Not on file Not on file Not on file documented as of this encounter Last Filed Vital Signs Vital Sign Reading Time Taken Comments Blood Pressure 130/72 06/18/2019 2:18 PM DEMURRAGE AGENT Pulse 81 06/18/2019 2:18 PM DEMURRAGE AGENT Temperature 36.7 ??C (98 ??F) 06/18/2019 2:18 PM DEMURRAGE AGENT Respiratory Rate - - Oxygen Saturation 95% 06/18/2019 2:18 PM DEMURRAGE AGENT Inhaled Oxygen Concentration - - Weight 76.9 kg (169 lb 8 oz) 06/18/2019 2:18 PM DEMURRAGE AGENT Height 160 cm (5' 3 ) 06/18/2019 2:18 PM DEMURRAGE AGENT Body Mass Index 30.03 06/18/2019 2:18 PM DEMURRAGE AGENT documented in this encounter Progress Notes * [...] > 5 YEARS N/A 06/09/2019 ? ? [place] REMOVAL OF TONSILS,<12 Y/O Tonsillectomy - (Added by TW Conv) ??? [place] TOTAL ABDOM HYSTERECTOMY Hysterectomy - (Added by TW Conv) HOME MEDICATIONS : ascorbic acid, vitamin C, 500 mg capsule cholecalciferol (VITAMIN D-3) 2,000 unit capsule clotrimazole-betamethasone (LOTRISONE) cream coenzyme [id number] E (CO Q-10, WITH VIT E,) 100-5 [...] assistance. 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
--- OUTSIDE RECORDS SUMMARY | 2024-06-26 02:17 | XMS_ITS | Encounter Summary ---
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 Oncology [facility] Advanced Medicine 7th [place] [address] Neuroendocrine carcinoma (CMS/HCC) (Primary Dx); Malignant neoplasm metastatic to liver (CMS/HCC) Social History Tobacco Use Types Packs/Day Years Used Date Smoking Tobacco: Never Smokeless Tobacco: Never Alcohol Use Standard Drinks/Week Comments Yes 1 (1 standard drink = 0.6 oz pur e alcohol) Comments No Sex and Gender Information Value Date Recorded Sex Assigned at Not on file Legal Sex Female 2:41 PM TECHNOLOGY STRATEGIST Gender Identity Not on file Sexual [...] T Respiratory Rate 20 06/10/2019 1:23 PM TECHNOLOGY STRATEGIST Oxygen Saturation - - Inhaled Oxygen Concentration - - Weight - - Height - - Body Mass Index - - documented in this encounter Nursing Notes * Jaimee Cullen RN - 06/10/2019 4:00 PM CST Patient received sandostatin right dorsogluteal. Tolerated well and discharged ambulatory. NOLOGY STRATEGIST documented in this encounter Plan of [...] (HCC),Neuroendocrine carcinoma (HCC) Given 06/10/2019 1:31 PM TECHNOLOGY STRATEGIST 30 mg Right Dorsogluteal/Butt ock documented in this encounter Orders Medications Ordered That Brett ht Not Have Been Administered Count Last Ordered Date First Ordered Date octreotide LAR (SandoSTATIN LAR) extended release intramuscular injection 30 mg 1 06/10/2019 Appointment Requests Count Last Ordered Date Fi rst Ordered Date ONCBCN INJECTION APPOINTMENT REQUEST 1 10/2018 documented in this encounter Care Teams Business Services Sales Representative Relationship Specialty Start Date End Date Julio César Briseno MD PCP - General 10/01/16 Eren Cr MD Referring Physician Medical Oncology 11/25/18 Yohana Bowen MD Radiation Oncologist Radiation Oncology 11/25/18 documented as of this encounter
--- OUTSIDE RECORDS SUMMARY | 2024-06-26 02:17 | XMS_ITS | Encounter Summary ---
Author Organization [facility] Address [address] [place] [address] Phone Care Team Providers Care Rayon Winder Name Role Phone Julio César Briseno MD Primary Care Provider [phone] Eren Cr MD Unavailable [phone] Yohana Bowen MD Unavailable Reason for Visit * Auth/Cert Specialty Diagnoses / Procedures Referred By Evelyne t Referred To Contact Referral ID Status Reason Start Date Expiration Date Visits Re quested Visits Authorized [id number] 1 1 Encounter Details Date Type Department Care Team (Late st Contact Info) Description 06/12/2019 1:00 PM RETAIL BANKER Home Care Visit [facility] Home Health [address] [address] [address] [place] [address] Misa Barrow RN SN OASIS DISCHARGE Social History Tobacco Use Types Packs/Day Years Used Date Smoking Tobacco: Never Smokeless Tobacco: Never Alcohol Use Standard Drinks/Week Comments Yes 1 (1 standard drink = 0.6 oz pur e alcohol) Comments No Sex and Gender Information Value Date Recorded Sex Assigned at Not on file Legal Sex Female 2:41 PM RETAIL BANKER Gender Identity Not on file Sexual Orientation Straight 02/19/2021 9: 29 AM CDT Occupation Industry Job Start Date Job End Date retired Not on file Not on file Not on file documented as of this encounter Last Filed Vital Signs Vital Sign Reading Time Taken Comments Blood Pressure 118/70 06/12/2019 1:13 PM RETAIL BANKER Pulse 76 06/12/2019 1:13 PM RETAIL BANKER Temperature 36.8 ??C (98.2 ??F) 06/12/2019 1:13 PM CS T Respiratory Rate 16 06/12/2019 1:13 PM RETAIL BANKER Oxygen Saturation 96% 06/12/2019 1:13 PM RETAIL BANKER Inhaled Oxygen Concentration - - Weight - - Height - - Body Mass Index - - documented in this encounter Plan of Treatment Not on file documented as of this encounter Visit Diagnoses Not on filedocumented in this encounter Home Health Visit - Care Plan Visit Details Visit Type -SN OASIS Dischar ge Discipline -Nursing Home Problems Problem Description Start Date Status Goals Interventions Homebound Status Disciplines: Nursing Home, Occupational Therapy Patient's homebound status 9 Resolved on 06/12/2019 1 goal linked to scheduled/docume nted intervention 1 goal intervention scheduled/documen omar in this visit Monitor patient's vital signs every home health visit Disciplines: Nursing Home, Occupational Therapy Monitor patient's vital signs every home health visit. 9 Resolved on 06/12/2019 1 goal linked to scheduled/docume nted intervention 1 goal intervention scheduled/documen omar in this visit Wound Education and Management Disciplines: Nursing Home Deficiency of cognitive information related to [...] visit during episode of care Description: Home hogshead opener to measure vital signs during every home [...] supplies. documented in this encounter Care Teams Rayon Winder Relationship Specialty Start Date End Date Julio César Briseno MD PCP - General 10/01/16 Eren Cr MD Referring Physician Medical Oncology 11/25/18 Yohana Bowen MD Radiation Oncologist Radiation Oncology 11/25/18 documented as of this encounter
--- OUTSIDE RECORDS SUMMARY | 2024-06-26 02:17 | XMS_ITS | Encounter Summary ---
Author Organization [facility] Address [address] [place] [address] Phone Care Team Providers Care Acoustical Tile Drill Press Operator Name Role Phone Julio César Briseno MD Primary Care Provider Eren Cr MD Unavailable [phone] Yohana Bowen MD Unavailable Reason for Visit * Reason Onset Date Comments Scheduling Appointments 07/17/2019 rsc, no provider Encounter Details Date Type Department Care Team (Late st Contact Info) Description 07/17/2019 Telephone [facility] Surgery [address] [facility] 2nd Floor [address] [place] [address] Delfina Galloway RMA Scheduling Appointments (rsc, no provider) Social History Tobacco Use Types Packs/Day Years Used Date Smoking Tobacco: Never Smokeless Tobacco: Never Alcohol Use Standard Drinks/Week Comments Yes 1 (1 standard drink = 0.6 oz pur e alcohol) Comments No Sex and Gender Information Value Date Recorded Sex Assigned at Not on file Legal Sex Female 2:41 PM CIRCULATION DIRECTOR Gender Identity Not on file Sexual Orientation Straight 02/19/2021 9: 29 AM CDT Occupation Industry Job Start Date Job End Date retired Not on file Not on file Not on file documented as of this encounter Miscellaneous Notes * Telephone Encounter - Delfina Galloway RMA - 07/17/2019 3:29 PM CIRCULATION DIRECTOR LM for patient. Informed her we need to reschedule her appointment on 07/21 with [facility]. No provider available. Offered to move appointment to 07/22 at [facility] if she is available. Asked for a return call to reschedule. ULATION DIRECTOR documented in this encounter Plan of Treatment Not on file documented as of this encounter Visit Diagnoses Not on filedocumented in this encounter Care Teams Acoustical Tile Drill Press Operator Relationship Specialty Start Date End Date Julio César Briseno MD PCP - General 10/01/16 Eren Cr MD Referring Physician Medical Oncology 11/25/18 Yohana Bowen MD Radiation Oncologist Radiation Oncology 11/25/18 documented as of this encounter
--- OUTSIDE RECORDS SUMMARY | 2024-06-26 02:17 | XMS_ITS | Encounter Summary ---
Author Organization [facility] Healthcare Address [address] [place] [address] Care Team Providers Care Coagulating Bath Mixer Name Role Phone Julio César Briseno MD Primary Care Provider [phone] Eren Cr MD Unavailable [phone] Yohana Bowen MD Unavailable Reason for Referral * Diagnostic Imaging (Routine) - Closed Specialty Diagnoses / Procedures Referred By Evelyne t Referred To Contact Radiology Diagnoses Malignant neoplasm metastatic to liver (HCC) Procedures PET/CT Ga-68 Dotatate Skull to Thigh Yohana Bowen MD [address] [facility] [address] [place] [address] Phone: tel: fax: [facility] [address] [place] [address] Referral ID Status Reason Start Date Expiration Date Visits Re quested Visits Authorized [id number] Closed 07/27/2019 02/04/2021 2 2 CATTLE FARM WORKER * Diagnostic Imaging (Routine) - Closed Specialty Diagnoses / Procedures Referred By Evelyne bowman Referred To Contact Radiology Diagnoses Malignant neoplasm metastatic to liver (HCC) Procedures CT Chest Abdomen Pelvis W Contrast Yohana Bowen MD [address] [place] [address] Phone: tel: fax: [address] [address] Referral ID Status Reason Start Date Expiration Date Visits Re quested Visits Authorized [id number] Closed 07/27/2019 02/04/2021 1 1 CATTLE FARM WORKER * Diagnostic Imaging (Routine) - Closed Specialty Diagnoses / Procedures Referred By Contac t Referred To Contact Radiology Diagnoses Malignant neoplasm metastatic to liver (HCC) Procedures IR PICC Line Placement > 5 Years Yohana Bowen MD [address] [facility] [address] [place] [address] Phone: tel: fax: [address] [address] Referral ID Status Reason Start Date Expiration Date Visits Re quested Visits Authorized [id number] Closed 07/27/2019 02/04/2021 1 1 CATTLE FARM WORKER Encounter Details Date Type Department Care Team (Late st Contact Info) Description 07/27/2019 Orders Only [facility] Advanced Medicine Radiation Oncology [address] [place] [address] [place] [address] Hien Soto RN Malignant neoplasm [...] on file Legal Sex Female 2:41 PM BEEF CATTLE FARM WORKER Gender Identity Not on file Sexual [...] to procedure, patient will need a van cdl driver. If on any blood thinners, stop [...] Contrast (3 months post completion of Lutathera). [facility] 3rd floor, arrive 0950 for 1020. NPO 2 hours prior to scan. Follow up same day at 1330. DOT PET ordered and requested and follow up. (6 months post Lutathera #4). Patient aware of ALL appt and verbalized understanding. CATTLE FARM WORKER documented in this encounter Plan of [...] -PET/CT IMAGING DATE OF STUDY: ??01/25/2020 SCANNER: [facility] RADIOPHARMACEUTICAL: 4.7 mCi Ga-68 dotatate [...] obtained. ??The study was interpreted on the [employer] workstation. ?? Scanned area: skull vertex to [...] -PET/CT IMAGING DATE OF STUDY: 01/25/2020 SCANNER: [facility] RADIOPHARMACEUTICAL: 4.7 mCi Ga-68 dotatate [...] obtained. The study was interpreted on the [employer] workstation. Scanned area: skull vertex to the [...] (ABNORMAL) Immune deficiency profile (08/05/2019 6:55 AM BEEF CATTLE FARM WORKER) [facility] CD4 pct 44 31 - 64 % [facility] CD4 Absolute 154(L) 365 - 1,294 cells/mcL [facility] CD8 pct 21 12 - 40 % [facility] CD8 Absolute 74(L) 187 - 781 cells/mcL [facility] CD4/CD8 ratio 2.1 0.9 - 4.4 [facility] Blood specimen (specimen) 08/05/2019 6:55 AM BEEF CATTLE FARM WORKER 08/05/2019 7:25 AM BEEF CATTLE FARM WORKER us Yohana Bowen MD LAB BLOOD ORDERABLES Final Resul t [facility] Department [place] [address] * (ABNORMAL) CBC with auto differential (08/05/2019 6:55 AM BEEF CATTLE FARM WORKER) [facility] WBC 4.8 3.8 - 9.9 K/cumm [facility] Hgb 11.9 11.9 - 15.5 g/dL [facility] Hct 34.4(L) 35.6 - 45.5 % [facility] Plt 110(L) 150 - 400 K/cumm [facility] MPV 10.1 9.1 - 12.3 fL [facility] RBC 3.90 3.90 - 5.20 M/cumm [facility] MCV 88.2 81.3 - 96.4 fL [facility] MCH 30.5 27.1 - 33.3 pg [facility] MCHC 34.6 32.3 - 35.7 g/dL [facility] RDW CV 13.9 11.1 - 14.9 % [facility] RDW SD 44.2 35.7 - 48.1 fL [facility] NRBC abs 0.00 0.00 - 0.01 K/cumm [facility] Blood specimen (specimen) 08/05/2019 6:55 AM BEEF CATTLE FARM WORKER 08/05/2019 7:25 AM BEEF CATTLE FARM WORKER us Yohana Bowen MD LAB BLOOD ORDERABLES Final Resul t [facility] Department [place] [address] * IR PICC Line Placement > 5 Years (08/04/2019 3:30 PM BEEF CATTLE FARM WORKER) Anatomical Region Laterality Modality Body N/A Radio Fluoroscop y 08/04/2019 6:32 PM BEEF CATTLE FARM WORKER Impressions 08/05/2019 7:17 AM BEEF CATTLE FARM WORKER Successful nontunneled dual lumen PICC catheter placement. [...] Ariel Carvalho M.D. Narrative 08/05/2019 7:17 AM BEEF CATTLE FARM WORKER EXAMINATION: ??NONTUNNELED CENTRAL VENOUS CATHETER PLACEMENT (STD) [...] was obtained. ??Prior to beginning the procedure, [place] Protocol was used to confirm the patient's [...] was obtained. Prior to beginning the procedure, [place] Protocol was used to confirm the patient's [...] (HCC) documented in this encounter Care Teams Coagulating Bath Mixer Relationship Specialty Start Date End Date Julio César Briseno MD PCP - General 10/01/16 Eren Cr MD Referring Physician Medical Oncology 11/25/18 Yohana Bowen MD Radiation Oncologist Radiation Oncology 11/25/18 documented as of this encounter
--- OUTSIDE RECORDS SUMMARY | 2024-06-26 02:17 | XMS_ITS | Encounter Summary ---
Author Organization [facility] Healthcare Address [address] [place] [address] Care Team Providers Care Wigs Salesperson Name Role Phone Julio César Briseno MD Primary Care Provider [phone] Eren Cr MD Unavailable [phone] Yohana Bowen MD Unavailable Encounter Details Date Type Department Care Team (Late st Contact Info) Description 08/04/2019 Orders Only Radiology [address] [place] [id number] Shiv Dillon MD [facility] [address] [facility] [address] [place] [address] Social History Tobacco Use Types Packs/Day Years Used Date Smoking Tobacco: Never Smokeless Tobacco: Never Alcohol Use Standard Drinks/Week Comments Yes 1 (1 standard drink = 0.6 oz pur e alcohol) Comments No Sex and Gender Information Value Date Recorded Sex Assigned at Not on file Legal Sex Female 2:41 PM PROJECT MANAGER FINANCE Gender Identity Not on file Sexual Orientation Straight 02/19/2021 9: 29 AM CDT Occupation Industry Job Start Date Job End Date retired Not on file Not on file Not on file documented as of this encounter Miscellaneous Notes * Pre-Procedure Note - Shiv Dillon MD - 08/04/2019 6:10 AM PROJECT MANAGER FINANCE Radiology Procedure Plan Indication: Metastatic neuroendocrine tumor Planned Procedure: Peripherally inserted central catheter placement ECT MANAGER FINANCE documented in this encounter Plan of Treatment Not on file documented as of this encounter Visit Diagnoses Not on filedocumented in this encounter Care Teams Wigs Salesperson Relationship Specialty Start Date End Date Julio César Briseno MD PCP - General 10/01/16 Eren Cr MD Referring Physician Medical Oncology 11/25/18 Yohana Bowen MD Radiation Oncologist Radiation Oncology 11/25/18 documented as of this encounter
--- OUTSIDE RECORDS SUMMARY | 2024-06-26 02:17 | XMS_ITS | Encounter Summary ---
Author Organization [facility] Healthcare Address [address] [place] [address] Care Team Providers Care Insulation Applicator Name Role Phone Julio César Briseno MD Primary Care Provider [phone] Eren Cr MD Unavailable Yohana Bowen MD Unavailable Reason for Referral * Diagnostic Imaging (Routine) - Closed Specialty Diagnoses / Procedures Referred By Evelyne bowman Referred To Contact Radiology Diagnoses Malignant neoplasm metastatic to liver (HCC) Procedures IR PICC Line Placement > 5 Years Yohana Bowen MD [address] [facility] [address] [place] [address] Phone: tel: fax: [address] [phone] Referral ID Status Reason Start Date Expiration Date Visits Re quested Visits Authorized [id number] Closed 07/27/2019 02/04/2021 1 1 ER TOOL AND DIE Reason for Visit * Diagnostic Imaging (Routine) - Closed Specialty Diagnoses / Procedures Referred By Evelyne bowman Referred To Contact Radiology Diagnoses Malignant neoplasm metastatic to liver (HCC) Procedures IR PICC Line Placement > 5 Years Yohana Bowen MD [address] [facility] [address] [place] [address] Phone: tel: fax: [facility] [address] [facility] [place] [address] Referral ID Status Reason Start Date Expiration Date Visits Re quested Visits Authorized [id number] Closed 07/27/2019 02/04/2021 1 1 Encounter Details Date Type Department Care Team (Latest Contact Info) Description 08/04/2019 12:57 PM WELDER TOOL AND DIE - 08/04/2019 3:40 PM WELDER TOOL AND DIE Hospital Encounter [facility] Radiology [facility] [place] [address] [place] [address] Yohana Bowen MD [address] [place] [address] Malignant neoplasm metastatic to liver [...] on file Legal Sex Female 2:41 PM WELDER TOOL AND DIE Gender Identity Not on file Sexual Orientation Straight 02/19/2021 9: 29 AM CDT Occupation Industry Job Start Date Job End Date retired Not on file Not on file Not on file documented as of this encounter Last Filed Vital Signs Vital Sign Reading Time Taken Comments Blood Pressure 164/74 08/04/2019 3:25 PM WELDER TOOL AND DIE Pulse 70 08/04/2019 3:30 PM WELDER TOOL AND DIE Temperature 36.2 ??C (97.2 ??F) 08/04/2019 3:25 PM CS T Respiratory Rate 15 08/04/2019 3:25 PM WELDER TOOL AND DIE Oxygen Saturation 97% 08/04/2019 3:30 PM WELDER TOOL AND DIE Inhaled Oxygen Concentration - - Weight - - Height - - Body Mass Index - - documented in this encounter Discharge Diagnoses Diagnosis Other malignant neuroendocrine tumors (HCC) - OTHER MALIGNANT NEUROENDOCRINE TUMORS Other secondary neuroendocrine tumors (HCC) - OTHER SECONDARY NEUROENDOCRINE TUMORS documented in this encounter Discharge Instructions * Discharge Instructions* Shiv Dillon MD - 08/04/2019 3:26 PM WELDER TOOL AND DIE Interventional Radiology Outpatient Discharge Instructions/Note Diagnosis: Neuroendocrine [...] draining. To contact an Interventional Radiologist at [facility] call [phone] Saturday through Saturday from 7:30am-4:30pm. At all other times call [phone] and ask that the Interventional Radiologist be paged. To contact an Interventional Radiologist at [facility] call [phone] Saturday through Saturday from 7:30am-3:30pm. Special instructions: [...] Please come to: [] 3rd Floor [facility] [] 4th floor [facility] [] [facility] [] [facility] Please call [phone] to schedule a follow up appointment. You need to return in ER TOOL AND DIE documented in this encounter Medications at Time of Discharge simvastatin (ZOCOR) 20 mg tablet Take 1 tablet (20 mg total) by mouth nightly ascorbic acid, vitamin C, 500 mg capsuleIndications :supplement Take 1 tablet by mouth test center manager before breakfast 07/04/2016 4 bisacodyl (DULCOLAX) 10 mg suppository Gentle Laxative (bisacodyl) 10 mg rectal suppository USE DIRECTED 0 cholecalciferol (VITAMIN D-3) 2,000 unit capsule Take 1 capsule (2,000 Units total) by mouth daily 30 capsule 2 04/25/2019 3 clotrimazole-betam ethasone (LOTRISONE) cream Apply 1 Application topically daily as needed (rash) 4 coenzyme P12-wtrnlnu E 100-5 mg-unit capsuleIndications :supplement Take 1 tablet by mouth test center manager before breakfast [address] (CYMBALTA) [...] all comfort and safety measures in place. ER TOOL AND DIE documented in this encounter Miscellaneous Notes * Post-Procedure Note - Shiv Dillon MD - 08/04/2019 3:25 PM WELDER TOOL AND DIE Radiology Brief Post Procedure Note Attending: Dr. Carvalho Risk Assessment Consultant: Dr. Dillon Sedation/Anesthesia: Min Sedation Pre-Op/Pre-Procedure Diagnosis: Neuroendocrine tumor Post-Op/Post-Procedure Diagnosis: Same Procedure Performed: PICC placement Procedure Findings: Successful RUE PICC w/ tip at cavoatrial junction. Ready for immediate use. Complications: None Estimated Blood Loss: < 30 ml Specimens: None Condition: Stable Full report to follow. ER TOOL AND DIE documented in this encounter Plan of Treatment Not on file documented as of this encounter Procedures Procedure Name Priority Date/Time Associated Diagnosis Comments IR PICC LINE PLACEMENT > 5 YEARS Schedule Routine, Read Routine (OP Routine) 08/04/2019 3:30 PM WELDER TOOL AND DIE Malignant neoplasm metastatic to liver (CMS/HCC) documented in this encounter Results * IR PICC Line Placement > 5 Years (08/04/2019 3:30 PM WELDER TOOL AND DIE) Anatomical Region Laterality Modality Body N/A Radio Fluoroscop y 08/04/2019 6:32 PM WELDER TOOL AND DIE Impressions 08/05/2019 7:17 AM WELDER TOOL AND DIE Successful nontunneled dual lumen PICC catheter placement. [...] Ariel Carvalho M.D. Narrative 08/05/2019 7:17 AM WELDER TOOL AND DIE EXAMINATION: ??NONTUNNELED CENTRAL VENOUS CATHETER PLACEMENT (STD) [...] was obtained. ??Prior to beginning the procedure, [place] Protocol was used to confirm the patient's [...] was obtained. Prior to beginning the procedure, [place] Protocol was used to confirm the patient's [...] Indwelling Vascular Catheter Given 08/04/2019 3:19 PM WELDER TOOL AND DIE 5 mL lidocaine PF (XYLOCAINE) 10 mg/mL (1 %) preservative free injection Code/trauma/sedation medication, Starting on Sat08/04/19 at 1509, Intra-Procedure (IR), Indications: Administration of Local AnesthesiaIndications:Administration of Local Anesthesia Given 08/04/2019 3:09 PM WELDER TOOL AND DIE 5 mL documented in this encounter Active and Recently Administered Medications Times are shown in WELDER TOOL AND DIE. PRN Medication Order 08/02/2019 08/03/2019 08/04/2019 heparin [...] MD) documented in this encounter Care Teams Insulation Applicator Relationship Specialty Start Date End Date Julio César Briseno MD PCP - General 10/01/16 Eren Cr MD Referring Physician Medical Oncology 11/25/18 Yohana Bowen MD Radiation Oncologist Radiation Oncology 11/25/18 documented as of this encounter
--- OUTSIDE RECORDS SUMMARY | 2024-06-26 02:17 | XMS_ITS | Encounter Summary ---
Author Organization [facility] Healthcare Address [address] [place] [address] Care Team Providers Care Cork Wirer Name Role Phone Julio César Briseno MD Primary Care Provider [phone] Eren Cr MD Unavailable [phone] Yohana Bowen MD Unavailable Encounter Details Date Type Department Care Team (Late st Contact Info) Description 07/29/2019 8:21 AM COMBAT CONTROL Anesthesia Event [facility] Operating Room [address] [place] [address] Caren Boyce MD [address] [facility] [address] [place] [address] Anesthesia Record Procedure Summary Procedure Name Responsible [...] assessment 04/28/19; 06/09/24 (Retired LDA, Removed/Completed by [facility] with LDA Utility); 1213 (Retired LDA, Removed/Completed by [facility] with LDA Utility) 04/13/19 1555 by Adelita Barba RN 06/09/24 1213 by Discharge Provider, Automatic RETIRED Surgical Site 05/06/19; No; Mid-line; Abdomen; distal; 06/09/24 (Retired LDA, Removed/Completed by [facility] with LDA Utility); 1213 (Retired LDA, Removed/Completed by [facility] with LDA Utility) 05/06/19 0000 [...] on file Legal Sex Female 2:41 PM COMBAT CONTROL Gender Identity Not on file Sexual Orientation Straight 02/19/2021 9: 29 AM CDT Occupation Industry Job Start Date Job End Date retired Not on file Not on file Not on file documented as of this encounter OR Notes * Anesthesia Postprocedure Evaluation - Caren Boyce MD - 07/29/2019 8:52 AM CST Patient: La Chung Procedure Summary Date: 07/29/19 Room / Location: [facility] OR [facility]OD 1 ROOM 331 / [facility] OR [facility] 1 Anesthesia Start: 820 Anesthesia [...] Resp 15 kg (170 lb) SpO2 94% AT CONTROL * Anesthesia Preprocedure Evaluation - Caren Boyce [...] > 5 YEARS N/A 06/09/2019 ? ? ME REMOVAL OF TONSILS,<12 Y/O [...] a month -- -- Historical Provider, coenzyme [id number] E (CO Q-10, WITH VIT E,) 100-5 [...] Medication protocol when under care of a VERTICAL PUNCH OPERATOR Planned anesthesia: General and MAC Induction: Induction: intravenous. Postoperative Plan: Postoperative administration opioids intended. No postoperative mechanical ventilation intended. Patient's planned disposition post procedure is Outpatient. Informed Consent: Discussed plan with VERTICAL PUNCH OPERATOR. Anesthesia plan and risks discussed with patient. Consent and Attending signature: I and/or my designee have discussed the anesthesia plan, benefits, possible alternatives, parental presence at time of induction (if indicated), and clinically relevant risks that may include dental injury, unintentional awareness, and/or other complications. The patient and/or parent/legal guardian understand, and agree to proceed. All questions answered. AT CONTROL AT CONTROL AT CONTROL documented in this encounter Plan of Treatment [...] 0831, Anesthesia Intra-op Given 07/29/2019 8:31 AM COMBAT CONTROL 20 mg fentaNYL (SUBLIMAZE) preservative free injection intravenous, As needed, Starting on Sat07/29/19 at 0826, Anesthesia Intra-op Given 07/29/2019 8:26 AM COMBAT CONTROL 100 mcg Lactated Ringer's (LR) infusion 30 mL/hr, intravenous, Continuous, Starting on Sat07/29/19 at 0645, Pre-Op New Bag 07/29/2019 8:21 AM COMBAT CONTROL New Bag 07/29/2019 6:38 AM COMBAT CONTROL 30 mL/hr 30 mL/hr lidocaine PF (XYLOCAINE) 10 mg/mL (1 %) preservative free injection As needed, Starting on Sat07/29/19 at 0826, Anesthesia Intra-op Given 07/29/2019 8:26 AM COMBAT CONTROL 50 mg midazolam (VERSED) preservative free injection intravenous, Administer over 2 Minutes, As needed, Starting on Sat07/29/19 at 0821, Anesthesia Intra-op Given 07/29/2019 8:21 AM COMBAT CONTROL 2 mg ondansetron (ZOFRAN) injection intravenous, Administer over 2 Minutes, As needed, Starting on Sat07/29/19 at 0831, Anesthesia Intra-op Given 07/29/2019 8:31 AM COMBAT CONTROL 4 mg propofol (DIPRIVAN) IV intravenous, As needed, Starting on Sat07/29/19 at 0831, Anesthesia Intra-op Given 07/29/2019 8:35 AM COMBAT CONTROL 20 mg Given 07/29/2019 8:31 AM COMBAT CONTROL 20 mg documented in this encounter Care Teams Cork Wirer Relationship Specialty Start Date End Date Julio César Briseno MD PCP - General 10/01/16 Eren Cr MD Referring Physician Medical Oncology 11/25/18 Yohana Bowen MD Radiation Oncologist Radiation Oncology 11/25/18 documented as of this encounter
--- OUTSIDE RECORDS SUMMARY | 2024-06-26 02:17 | XMS_ITS | Encounter Summary ---
Author Organization [facility] Address [address] [place] [address] Phone Care Team Providers Care Smokehouse Operator Name Role Phone Julio César Briseno MD Primary Care Provider Eren Cr MD Unavailable [phone] Yohana Bowen MD Unavailable Encounter Details Date Type Department Care Team (Late st Contact Info) Description 07/20/2019 10:30 AM CASE PLANNER Lab [facility] Oncology [facility] 7th [place] [address] [place] [address] Neuro-endocrine carcinoma (CMS/HCC); 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) Social History Tobacco Use Types Packs/Day Years Used Date Smoking Tobacco: Never Smokeless Tobacco: Never Alcohol Use Standard Drinks/Week Comments Yes 1 (1 standard drink = 0.6 oz pur e alcohol) Comments No Sex and Gender Information Value Date Recorded Sex Assigned at Not on file Legal Sex Female 2:41 PM CASE PLANNER Gender Identity Not on file Sexual Orientation Straight 02/19/2021 9: 29 AM CDT Occupation Industry Job Start Date Job End Date retired Not on file Not on file Not on file documented as of this encounter Plan of Treatment Not on file documented as of this encounter Procedures Procedure Name Priority Date/Time Associated Diagnosis Comments DIFFERENTIAL AUTO Routine 07/20/2019 10: 52 AM CASE PLANNER 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 to liver (CMS/HCC) CBC WITH AUTO DIFFERENTIAL Routine 07/20/2019 10:52 AM CASE PLANNER 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 to liver (CMS/HCC) CHROMOGRANIN A Routine 07/20/2019 10:49 AM CASE PLANNER 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 to liver (CMS/HCC) COMPREHENSIVE METABOLIC PANEL Routine 07/20/2019 10:49 AM CASE PLANNER 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 to liver (CMS/HCC) documented in this encounter Results * (ABNORMAL) Differential, auto (07/20/2019 10:52 AM CASE PLANNER) Neutrophil abs 2.9 1.8 - 6.6 K/cumm [facility] Comment:Testing performed by : [facility], [address] [place] [phone] Lymphocyte abs 0.3(L) 1.2 - 3.3 K/cumm [facility] Comment:Testing performed by : [facility], [address] [place] [phone] Monocyte abs 0.4 0.2 - 1.2 K/cumm [facility] Comment:Testing performed by : [facility], [address] [place] [phone] Eosinophil abs 0.1 0.0 - 0.5 K/cumm [facility] Comment:Testing performed by : [facility], [address] [place] [phone] Basophil abs 0.0 0.0 - 0.2 K/cumm [facility] Comment:Testing performed by : [facility], [address] [place] [phone] Neutrophil pct 77.0 % [facility] Comment: Interpretive Data Percent cell count reference ranges are not reported, since discordance with absolute values may lead to misinterpretation of CBC data. Current Interpretive Data was last revised on 2017. Testing performed by: [facility], [address] [place] [phone] Lymphocyte pct 7.8 % [facility] Comment: Interpretive Data Percent cell count reference ranges are not reported, since discordance with absolute values may lead to misinterpretation of CBC data. Current Interpretive Data was last revised on 2017. Testing performed by: [facility], [address] [place] [phone] Monocyte pct 12.0 % [facility] Comment:Testing performed by : [facility], [address] [place] [phone] Eosinophil pct 2.6 % [facility] Comment:Testing performed by : [facility], [address] [place] [phone] Basophil pct 0.6 % [facility] Comment:Testing performed by : [address] [phone] Blood specimen (specimen) 07/20/2019 10:52 AM CASE PLANNER 07/20/2019 10:55 AM CASE PLANNER us Eren Cr MD LAB BLOOD ORDERABLES Final Re sult [facility] Department [place] [address] * (ABNORMAL) CBC with auto differential (07/20/2019 10:52 AM CASE PLANNER) WBC 3.7(L) 3.8 - 9.8 K/cumm [facility] Comment:Testing performed by : [facility], [address] [place] [phone] Hgb 13.0 12.1 - 15.1 g/dL [facility] Comment:Testing performed by : [address] [phone] Hct 37.7 36.1 - 44.3 % [facility] Comment:Testing performed by : [facility], [address] [place] [phone] Plt 100(L) 140 - 440 K/cumm [facility] Comment:Testing performed by : [facility], [address] [place] [phone] MPV 7.5 6.8 - 10.4 fL [facility] Comment:Testing performed by : [facility], [address] [place], [place] [phone] RBC 4.28 3.90 - 5.00 M/cumm [facility] Comment:Testing performed by : [place] [phone] MCV 88.1 80.0 - 97.6 fL [facility] Comment:Testing performed by : [facility], [address] [place], [place] [id number] MCH 30.4 26.7 - 33.7 pg [facility] Comment:Testing performed by : [facility], [address] [place], [place] [id number] MCHC 34.5 32.7 - 35.5 g/dL [facility] Comment:Testing performed by : [facility], [address] [place], [place] [id number] RDW CV 14.0 11.8 - 14.6 % [facility] Comment:Testing performed by : [facility], [address] [place] [phone] NRBC abs 0.02(H) 0.00 - 0.01 K/cumm [facility] Comment:Testing performed by : [address] [phone] Blood specimen (specimen) 07/20/2019 10:52 AM CASE PLANNER 07/20/2019 10:55 AM CASE PLANNER us Eren Cr MD LAB BLOOD ORDERABLES Final Re sult [facility] Department [place] [address] * (ABNORMAL) Comprehensive metabolic panel (07/20/2019 10:49 AM CASE PLANNER) Sodium 143 135 - 145 mmol/L [facility] Potassium, pl 4.9 3.3 - 4.9 mmol/L [facility] Chloride 110 97 - 110 mmol/L [facility] CO2 29 22 - 32 mmol/L [facility] Anion gap 4 2 - 15 mmol/L [facility] BUN 13 8 - 25 mg/dL [facility] Creatinine 0.89 0.60 - 1.10 mg/dL [facility] Glucose 109 70 - 199 mg/dL [facility] [...] 2017. Calcium 10.5(H) 8.5 - 10.3 mg/dL [facility] Bilirubin, total 0.7 0.1 - 1.2 mg/dL [facility] Protein, pl 6.8 6.5 - 8.5 g/dL [facility] Albumin 4.1 3.5 - 5.0 g/dL [facility] Alk phos 78 40 - 130 Units/L [facility] ALT 18 7 - 45 Units/L [facility] AST 30 10 - 45 Units/L [facility] Blood specimen (specimen) 07/20/2019 10:49 AM CASE PLANNER 07/20/2019 11:02 AM CASE PLANNER us Eren Cr MD LAB BLOOD ORDERABLES Final Re sult [facility] Department [place] [address] * (ABNORMAL) Chromogranin A (07/20/2019 10:49 AM CASE PLANNER) Chromogranin A 234(H) <93 ng/mL [facility] Comment: Impaired renal or hepatic function or treatment with proton pump inhibitors may result in artifactual elevations of Chromogranin A. ADDITIONAL INFORMATION This test was developed and its performance characteristics determined by [facility] in a manner consistent with CLIA [...] absence of malignant disease. Test Performed by: [facility] [address] [place] [address] Avionics Electrical Engineer: Immanuel Novak M.D. Ph.D.; CLIA# [id number] Blood specimen (specimen) 07/20/2019 10:49 AM CASE PLANNER 07/20/2019 11:17 AM CASE PLANNER Eren Cr MD LAB BLOOD ORDERABLES Final Re sult [facility] Department of Laboratories [place], [place] [id number] documented in this encounter Visit Diagnoses Diagnosis Neuro-endocrine carcinoma (HCC) Other malignant neoplasm of unspecified site Malignant neoplasm metastatic to liver (HCC) documented in this encounter Orders Appointment Requests Count Last Ordered Date Fi rst Ordered Date ONCBCN LAB APPOINTMENT 1 07/20/2019 documented in this encounter Care Teams Smokehouse Operator Relationship Specialty Start Date End Date Julio César Briseno MD PCP - General 10/01/16 Eren Cr MD Referring Physician Medical Oncology 11/25/18 Yohana Bowen MD Radiation Oncologist Radiation Oncology 11/25/18 documented as of this encounter
--- OUTSIDE RECORDS SUMMARY | 2024-06-26 02:18 | XMS_ITS | Encounter Summary ---
Author Organization [facility] Address [address] [place] [address] Phone Care Team Providers Care Morning Babysitter Name Role Phone Julio César Briseno MD Primary Care Provider Eren Cr MD Unavailable [phone] Yohana Bowen MD Unavailable Encounter Details Date Type Department Care Team (Late st Contact Info) Description 05/06/2019 Orders Only [facility] Oncology [address] [facility] Advanced [facility] 7th [place] [address] [place] [address] Mayela Williamson RN Malignant neoplasm metastatic to [...] file Legal Sex 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
--- OUTSIDE RECORDS SUMMARY | 2024-06-26 02:18 | XMS_ITS | Encounter Summary ---
Author Organization [facility] Address [address] [place] [address] Phone Care Team Providers Care First Assistant Manager Name Role Phone Julio César Briseno MD Primary Care Provider [phone] Eren Cr MD Unavailable [phone] Yohana Bowen MD Unavailable Reason for Visit * Auth/Cert Specialty Diagnoses / Procedures Referred By Evelyne t Referred To Contact Referral ID Status Reason Start Date Expiration Date Visits Re quested Visits Authorized [id number] 1 1 Encounter Details Date Type Department Care Team (Late st Contact Info) Description 04/27/2019 Home Care Visit [facility] Home Health [address] [address] [address] [place] [address] Valentina Talbot RN SN OASIS TRANSFER W/OUT DC Social History Tobacco Use Types Packs/Day Years Used Date Smoking Tobacco: Never Smokeless Tobacco: Never Alcohol Use Standard Drinks/Week Comments Yes 1 (1 standard drink = 0.6 oz pur e alcohol) Comments No Sex and Gender Information Value Date Recorded Sex Assigned at Not on file Legal Sex Female 2:41 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
--- OUTSIDE RECORDS SUMMARY | 2024-06-26 02:18 | XMS_ITS | Encounter Summary ---
Author Organization [facility] Address [address] [place] [address] Phone Care Team Providers Care Postulant Name Role Phone Julio César Briseno MD Primary Care Provider Eren Cr MD Unavailable [phone] Yohana Bowen MD Unavailable Encounter Details Date Type Department Care Team (Late st Contact Info) Description 06/09/2019 Orders Only [facility] Oncology [address] [place] [address] Sabrina Willard, MEDICAL CASH POSTER [address] [place], [place] [id number] Social History Tobacco Use Types Packs/Day Years Used Date Smoking Tobacco: Never Smokeless Tobacco: Never Alcohol Use Standard Drinks/Week Comments Yes 1 (1 standard drink = 0.6 oz pur e alcohol) Comments No Sex and Gender Information Value Date Recorded Sex Assigned at Not on file 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
--- OUTSIDE RECORDS SUMMARY | 2024-06-26 02:18 | XMS_ITS | Encounter Summary ---
Author Organization [facility] Address [address] [place] [address] Phone Care Team Providers Care It Administrative Assistant Name Role Phone Julio César Briseno MD Primary Care Provider Eren Cr MD Unavailable [phone] Yohana Bowen MD Unavailable Reason for Visit * Reason Comments Ostomy Care Encounter Details Date Type Department Care Team (Latest Contact Info) Description 05/20/2019 1:00 PM [employer] Clinical Support [facility] 8th [place] [address] [place] [address] (CMS/FORMERLY [facility]) (Primary Dx) Social History Tobacco Use Types Packs/Day Years Used Date Smoking Tobacco: Never Smokeless Tobacco: Never Alcohol Use Standard Drinks/Week Comments Yes 1 (1 standard drink = 0.6 oz pur e alcohol) Comments No Sex and Gender Information Value Date Recorded Sex Assigned at Not on file Legal Sex Female 2:41 PM [employer] Gender Identity Not on file Sexual Orientation [...] requested from mary for convex barrier ring. 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
--- OUTSIDE RECORDS SUMMARY | 2024-06-26 02:18 | XMS_ITS | Encounter Summary ---
Author Organization [facility] Healthcare Address [address] [place] [address] Care Team Providers Care Beer Runner Name Role Phone Julio César Briseno MD Primary Care Provider Eren Cr MD Unavailable [phone] Yohana Bowen MD Unavailable Reason for Visit * Reason Comments Wound Infection Encounter Details Date Type Department Care Team (Latest Contact Info) Description 04/27/2019 9:31 PM CDT - 05/04/2019 5:40 PM CDT Hospital Encounter [facility] [address] [place] [address] Petros Menon MD [address] [address] [place] [address] Greyson Reeves MD [address] [facility] [phone] [place] [address] Tristian Cisse MD [address] [place] [address] Abscess (Primary Dx); Neuroendocrine carcinoma (CMS/HCC) Discharge [...] file Legal 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 Neligh along inferior portion of wound were removed [...] voiding spontaneously without difficulty, and ambulating well. Neligh removed on day of discharge, steri-strips placed [...] Service Line: Home Health Primary disciplines requested: [facility] Home Health Services: Wound/ Ostomy Care Physician [...] E) 100-5 mg-unit capsule Generic drug: coenzyme [id number] E DULoxetine DR 30 mg capsule Commonly [...] capsuleIndications :supplement Take 1 tablet by mouth preventive medicine officer before breakfast 07/04/2016 4 cholecalciferol (VITAMIN D-3) 2,000 unit capsule Take 1 capsule (2,000 Units total) by mouth daily 30 capsule 2 04/25/2019 3 clotrimazole-betam ethasone (LOTRISONE) cream Apply 1 Application topically daily as needed (rash) 4 coenzyme [id number] E 100-5 mg-unit capsuleIndications :supplement Take 1 tablet by mouth preventive medicine officer before breakfast [address] (CYMBALTA) [...] mg at 04/29/19 1306 ??? influenza trivalent [id number] (FLUZONE HIGH DOSE) 180 mcg/0.5 mL vaccine [...] mg at 04/29/19 1306 ??? influenza trivalent [id number] (FLUZONE HIGH DOSE) 180 mcg/0.5 mL vaccine [...] -Pain- Tylenol, oxycodone -Diet- Regular diet -IVF- [id number] @ 100 cc/hr -Home meds- continue cymbalta, [...] mg at 04/29/19 1306 ??? influenza trivalent [id number] (FLUZONE HIGH DOSE) 180 mcg/0.5 mL vaccine [...] -Pain- Tylenol, oxycodone -Diet- Regular diet -IVF- [id number] @ 100 cc/hr -Home meds- continue cymbalta, [...] mg at 04/29/19 1306 ??? influenza trivalent [id number] (FLUZONE HIGH DOSE) 180 mcg/0.5 mL vaccine [...] oxycodone -Strict I/Os -Diet- regular diet -IVF- [id number] @ 100 cc/hr -Home meds- continue cymbalta, [...] mg at 04/29/19 1306 ??? influenza trivalent [id number] (FLUZONE HIGH DOSE) 180 mcg/0.5 mL vaccine [...] mg oral Q4H PRN ??? influenza trivalent [id number] (FLUZONE HIGH DOSE) 180 mcg/0.5 mL vaccine [...] Obtained From Patient Referral Data Referral Source Preventive Maintenance Engineer Referral Reason Discharge Planning Prior to Admission Primary Caregiver Self Support system contact info (name, phone, availablity) spouseAlejo [phone] Home Care Services Yes Type of Home Care Services Nurse visit Home care service name and phone number [facility] Durable Medical Equipment None Living Arrangements Spouse/significant other Type of Residence Private residence Potential Discharge Needs [facility] Pt/Family agrees with Anticipated Level of Care Yes Patient expects to be discharged to: Private residence Dialysis No Behavioral Health Services No Communications Fiduciary Responsibility Patient/Designated decision maker was informed of [facility] fiduciary relationship as necessary Impression: Patient is a 68 yo F with metastatic ileal neuroendocrine tumor, presenting with a large bowel obstruction??s/p Ex Lap + End colostomy. Endocrine consulted for hypocalcemia. Additional Information/Options Discussed: Patient interviewed at bedside for initial assessment. Address and phone verified to face sheet. HHC: patient open with [facility] HH, CM sent referral through [facility] [...] water (premix) 2,000 mg 2,000 mg intravenous [id number] ??? DULoxetine DR (CYMBALTA) extended release capsule [...] oxycodone -Strict I/Os -Diet- regular diet -IVF- [id number] @ 100 cc/hr -Home meds- continue cymbalta, [...] By, (c) = Cosigned By Initials Name IRVING Garcia RN Plan: Follow up: Kateryna Russ [...] concerns please contact the Wound/Ostomy department at [phone] Pamela Elizabeth RN * Pamela Elizabeth RN [...] remains intact. Recommendations: Continue as ordered Education: family day carer purpose and goals. Plan of care discussed with: RN patient STRATEGIC PARTNERSHIP REPRESENTATIVE Questions answered: Yes Wound/Ostomy will follow patient: yes Any questions or concerns please contact the Wound/Ostomy department at [phone] Pamela Elizabeth RN * Gregory Menchaca MD - 04/27/2019 10:46 PM CDTAssociated Order(s): IP CONSULT TO COLORECTAL SURGERY Images from the original note were not included. [facility] CRS Surgery Consult Note Date of Evaluation: [...] TO ABDOMEN TWICE DAILY NEEDED ??? coenzyme [id number] E (CO Q-10, WITH VIT E,) 100-5 [...] > 5 YEARS N/A 02/17/2019 ? ? MD REMOVAL OF TONSILS,<12 Y/O [...] Armen Menchaca MD Resident Physician, General Surgery [facility] [place], [place] April 27, 2019 10:48 PM [...] concerns please contact the Wound/Ostomy department at [phone] Pamela Elizabeth RN * Pamela Elizabeth RN [...] goals. Plan of care discussed with: patient STRATEGIC PARTNERSHIP REPRESENTATIVE ryley Questions answered: Yes Wound/Ostomy will follow patient: yes Any questions or concerns please contact the Wound/Ostomy department at [phone] Pamela Elizabeth RN * Pamela Elizabeth RN [...] wound/ostomy following last assessment 04/28/19 Site Assessment Clean;[facility]-wound Assessment Intact;Color normal for ethnicity (incision superior and inferior. ) Closure Unapproximated Drainage Amount Small Drainage Description Serosanguineous Drainage Odor No odor Dressing Status Changed Dressing Moist to dry Wound Length (cm) 1.5 cm Wound Width (cm) 2 cm Wound Depth (cm) 3.5 Calculated Wound Size (cm^3) 10.5 cm^2 Education: family day carer purpose and goals. Will evaluate tomorrow for new dressing and ostomy care. Recommendations: Continue moist to dry goal debridement. Plan of care discussed with: RN Questions answered: Yes Wound/Ostomy will follow patient: yes Any questions or concerns please contact the Wound/Ostomy department at [phone] Pamela Elizabeth RN documented in this encounter [...] > 5 YEARS N/A 02/17/2019 ? ? MD REMOVAL OF TONSILS,<12 Y/O [...] Irizarry MD Abscess Petros Menon MD 04/29/19 0815 * Sabrina Verdin RN - 04/27/2019 9:31 [...] CDT CM made aware this morning by STRATEGIC PARTNERSHIP REPRESENTATIVE that patient will need to discharge with wound vac. CM faxed orders, wound vac script and supporting clinical documentation [facility] contacted by text regardinganticipated discharge of [...] CM will continue to follow. Please call [phone] for assist with discharge needs today. * [...] Bette Salazar RN, BSN, MS, CCDS Clinical Physics Department Chair [phone] * Provider Query - Jessica Salazar - [...] Bette Salazar RN, BSN, MS, CCDS Clinical Physics Department Chair [phone] * Plan of Care - Priscilla Aguilar RN - 05/01/2019 2:25 PM CDT Report per DCAM:??Patient not medically stable to discharge today.Vascular access needed, dressing change twice a day. Impression: Patient is a 68 yo F with metastatic ileal neuroendocrine tumor, presenting with a large bowel obstruction??s/p Ex Lap + End colostomy Referrals:??Patient remains open with [facility], CM spoke with Yenny regarding ADD Support:??spouse, Alejo [phone] Transportation: ?? ADD:??05/02/19 ?? Case Management will [...] it was a few mouthfuls at 0640), STRATEGIC PARTNERSHIP REPRESENTATIVE notified, verbal order for oral Zofranplaced, pt [...] End colostomy Referrals: Patient remains open with [facility], CM spoke with Yenny regarding ADD Support: spouse, Alejo [phone] Transportation: ADD: 04/30/19 Case Management will follow [...] Bette Salazar RN, BSN, MS, CCDS Clinical Physics Department Chair [phone] * Plan of Care - Elaine Joseph [...] am taking signout on [place] from [facility] MD Petra Patient is a 68 yo [...] Lymphocyte abs 1.2 0.8 - 3.3 K/cumm [facility] Monocyte abs 0.8 0.2 - 0.8 K/cumm [facility] Eosinophil abs 0.3 0.0 - 0.5 K/cumm [facility] Basophil abs 0.1 0.0 - 0.1 K/cumm [facility] Neutrophil pct 65.7 % [facility] Comment: Interpretive Data Percent cell count reference ranges are not reported, since discordance with absolute values may lead to misinterpretation of CBC data. Current Interpretive Data was last revised on 2017. Imm gran pct 4.7 % [facility] Comment: Interpretive Data Percent cell count reference ranges are not reported, since discordance with absolute values may lead to misinterpretation of CBC data. Current Interpretive Data was last revised on 2017. Lymphocyte pct 14.5 % [facility] Comment: Interpretive Data Percent cell count reference ranges are not reported, since discordance with absolute values may lead to misinterpretation of CBC data. Current Interpretive Data was last revised on 2017. Monocyte pct 9.8 % [facility] Comment: Interpretive Data Percent cell count reference ranges are not reported, since discordance with absolute values may lead to misinterpretation of CBC data. Current Interpretive Data was last revised on 2017. Eosinophil pct 4.0 % [facility] Comment: Interpretive Data Percent cell count reference ranges are not reported, since discordance with absolute values may lead to misinterpretation of CBC data. Current Interpretive Data was last revised on 2017. Basophil pct 1.3 % [facility] Comment: Interpretive Data Percent cell count reference ranges are not reported, since discordance with absolute values may lead to misinterpretation of CBC data. Current Interpretive Data was last revised on 2017. Blood specimen (specimen) 05/03/2019 1:25 AM CDT 05/03/2019 1:34 AM CDT us Greyson Reeves MD LAB BLOOD ORDERABLES Final R esult [facility] [place] [address] * (ABNORMAL) Phosphorus (05/03/2019 1:25 AM CDT) [facility] Phosphorus, pl 2.0(L) 2.3 - 4.5 mg/dL [facility] Blood specimen (specimen) 05/03/2019 1:25 AM CDT 05/03/2019 1:34 AM CDT Greyson Reeves MD LAB BLOOD ORDERABLES Final R esult Performing Organization Address [facility] Co de Phone Number [facility] [place] [address] * Magnesium (05/03/2019 1:25 AM CDT) [facility] Magnesium 1.6 1.4 - 2.5 mg/dL [facility] Blood specimen (specimen) 05/03/2019 1:25 AM CDT 05/03/2019 1:34 AM CDT Greyson Reeves MD LAB BLOOD ORDERABLES Final R esult Performing Organization Address [facility] [place] [address] * (ABNORMAL) Basic metabolic panel (05/03/2019 1:25 AM CDT) [facility] Sodium 139 135 - 145 mmol/L [facility] Potassium, pl 3.8 3.3 - 4.9 mmol/L [facility] Chloride 107 97 - 110 mmol/L [facility] CO2 23 22 - 32 mmol/L [facility] Anion gap 9 2 - 15 mmol/L [facility] BUN 6(L) 8 - 25 mg/dL [facility] Creatinine 0.60 0.60 - 1.10 mg/dL [facility] Glucose 133 70 - 199 mg/dL [facility] [...] Calcium 8.5 8.5 - 10.3 mg/dL [facility] Blood specimen (specimen) 05/03/2019 1:25 AM CDT 05/03/2019 1:34 AM CDT us Greyson Reeves MD LAB BLOOD ORDERABLES Final R esult [facility] [place] [address] * (ABNORMAL) CBC with auto differential (05/03/2019 1:25 AM CDT) [facility] WBC 8.6 3.8 - 9.9 K/cumm [facility] Hgb 11.3(L) 11.9 - 15.5 g/dL [facility] Hct 35.5(L) 35.6 - 45.5 % [facility] Plt 432(H) 150 - 400 K/cumm [facility] MPV 10.4 9.1 - 12.3 fL [facility] RBC 3.87(L) 3.90 - 5.20 M/cumm [facility] MCV 91.7 81.3 - 96.4 fL [facility] MCH 29.2 27.1 - 33.3 pg [facility] MCHC 31.8(L) 32.3 - 35.7 g/dL [facility] RDW CV 15.1(H) 11.1 - 14.9 % [facility] RDW SD 48.6(H) 35.7 - 48.1 fL [facility] NRBC abs 0.00 0.00 - 0.01 K/cumm [facility] Blood specimen (specimen) 05/03/2019 1:25 AM CDT 05/03/2019 1:34 AM CDT us Greyson Reeves MD LAB BLOOD ORDERABLES Final R esult [facility] [place] [address] * (ABNORMAL) Basic metabolic panel (05/01/2019 3:47 AM CDT) Pathologist [facility] Sodium 137 135 - 145 mmol/L [facility] Potassium, pl 4.2 3.3 - 4.9 mmol/L [facility] Comment:Hemolyzed; (+++); po tassium value may be falsely elevated by as much as 0.6 - 1.0 mmol/L. Suggest redraw and reanalysis. Chloride 105 97 - 110 mmol/L [facility] CO2 25 22 - 32 mmol/L [facility] Anion gap 7 2 - 15 mmol/L [facility] BUN 7(L) 8 - 25 mg/dL [facility] Creatinine 0.67 0.60 - 1.10 mg/dL [facility] Glucose 116 70 - 199 mg/dL [facility] [...] 2017. Calcium 7.8(L) 8.5 - 10.3 mg/dL [facility] Blood specimen (specimen) 05/01/2019 3:47 AM CDT 05/01/2019 4:21 AM CDT us Ryley Hall NP LAB BLOOD ORDERABLES Final Res ult [facility] [place] [address] * (ABNORMAL) Differential, auto (04/30/2019 1:15 AM CDT) Neutrophil abs 3.3 1.7 - 6.5 K/cumm [facility] Imm gran abs 0.2(H) 0.0 - 0.1 K/cumm [facility] Lymphocyte abs 0.4(L) 0.8 - 3.3 K/cumm [facility] Monocyte abs 0.5 0.2 - 0.8 K/cumm [facility] Eosinophil abs 0.2 0.0 - 0.5 K/cumm [facility] Basophil abs 0.0 0.0 - 0.1 K/cumm [facility] Neutrophil pct 72.0 % [facility] Comment: Interpretive Data Percent cell count reference ranges are not reported, since discordance with absolute values may lead to misinterpretation of CBC data. Current Interpretive Data was last revised on 2017. Imm gran pct 3.3 % [facility] Comment: Interpretive Data Percent cell count reference ranges are not reported, since discordance with absolute values may lead to misinterpretation of CBC data. Current Interpretive Data was last revised on 2017. Lymphocyte pct 8.6 % [facility] Comment: Interpretive Data Percent cell count reference ranges are not reported, since discordance with absolute values may lead to misinterpretation of CBC data. Current Interpretive Data was last revised on 2017. Monocyte pct 10.4 % [facility] Comment: Interpretive Data Percent cell count reference ranges are not reported, since discordance with absolute values may lead to misinterpretation of CBC data. Current Interpretive Data was last revised on 2017. Eosinophil pct 4.8 % [facility] Comment: Interpretive Data Percent cell count reference ranges are not reported, since discordance with absolute values may lead to misinterpretation of CBC data. Current Interpretive Data was last revised on 2017. Basophil pct 0.9 % [facility] Comment: Interpretive Data Percent cell count reference ranges are not reported, since discordance with absolute values may lead to misinterpretation of CBC data. Current Interpretive Data was last revised on 2017. Blood specimen (specimen) 04/30/2019 1:15 AM CDT 04/30/2019 2:06 AM CDT Ryley Hall STRATEGIC PARTNERSHIP REPRESENTATIVE LAB BLOOD ORDERABLES Final Res ult Performing Organization Address [facility] Co de Phone Number [facility] [address] [place] [address] * (ABNORMAL) Basic metabolic panel (04/30/2019 1:15 AM CDT) Pathologist [facility] Sodium 136 135 - 145 mmol/L [facility] Potassium, pl 2.9(L) 3.3 - 4.9 mmol/L [facility] Chloride 102 97 - 110 mmol/L [facility] CO2 24 22 - 32 mmol/L [facility] Anion gap 10 2 - 15 mmol/L [facility] BUN 8 8 - 25 mg/dL [facility] Creatinine 0.70 0.60 - 1.10 mg/dL [facility] Glucose 118 70 - 199 mg/dL [facility] [...] 2017. Calcium 7.9(L) 8.5 - 10.3 mg/dL [facility] Blood specimen (specimen) 04/30/2019 1:15 AM CDT 04/30/2019 2:04 AM CDT Ryley Hall STRATEGIC PARTNERSHIP REPRESENTATIVE LAB BLOOD ORDERABLES Final Res ult Performing Organization Address [facility]/State/ZIP Co de Phone Number [facility] [address] [place] [address] * (ABNORMAL) CBC with auto differential (04/30/2019 1:15 AM CDT) [facility] WBC 4.5 3.8 - 9.9 K/cumm [facility] Hgb 8.9(L) 11.9 - 15.5 g/dL [facility] Hct 27.7(L) 35.6 - 45.5 % [facility] Plt 249 150 - 400 K/cumm [facility] MPV 10.7 9.1 - 12.3 fL [facility] RBC 3.08(L) 3.90 - 5.20 M/cumm [facility] MCV 89.9 81.3 - 96.4 fL [facility] MCH 28.9 27.1 - 33.3 pg [facility] MCHC 32.1(L) 32.3 - 35.7 g/dL [facility] RDW CV 14.4 11.1 - 14.9 % [facility] RDW SD 47.4 35.7 - 48.1 fL [facility] NRBC abs 0.00 0.00 - 0.01 K/cumm [facility] Blood specimen (specimen) 04/30/2019 1:15 AM CDT 04/30/2019 2:06 AM CDT Ryley Hall STRATEGIC PARTNERSHIP REPRESENTATIVE LAB BLOOD ORDERABLES Final Res ult [facility] [address] [place] [address] * (ABNORMAL) Basic metabolic panel (04/29/2019 3:13 AM CDT) [facility] Sodium 136 135 - 145 mmol/L [facility] Potassium, pl 3.1(L) 3.3 - 4.9 mmol/L [facility] Chloride 104 97 - 110 mmol/L [facility] CO2 25 22 - 32 mmol/L [facility] Anion gap 7 2 - 15 mmol/L [facility] BUN 12 8 - 25 mg/dL [facility] Creatinine 0.85 0.60 - 1.10 mg/dL [facility] Glucose 130 70 - 199 mg/dL [facility] [...] Calcium 7.4(L) 8.5 - 10.3 mg/dL [facility] Blood specimen (specimen) 04/29/2019 3:13 AM CDT 04/29/2019 4:05 AM CDT us Greyson Reeves MD LAB BLOOD ORDERABLES Final R esult [facility] [address] [place] [address] * (ABNORMAL) CBC without differential (04/29/2019 3:13 AM CDT) Pathologist [facility] WBC 6.0 3.8 - 9.9 K/cumm [facility] Hgb 8.6(L) 11.9 - 15.5 g/dL [facility] Hct 26.0(L) 35.6 - 45.5 % [facility] Plt 220 150 - 400 K/cumm [facility] MPV 10.4 9.1 - 12.3 fL [facility] RBC 2.87(L) 3.90 - 5.20 M/cumm [facility] MCV 90.6 81.3 - 96.4 fL [facility] MCH 30.0 27.1 - 33.3 pg [facility] MCHC 33.1 32.3 - 35.7 g/dL [facility] RDW CV 14.4 11.1 - 14.9 % [facility] RDW SD 47.7 35.7 - 48.1 fL [facility] NRBC abs 0.00 0.00 - 0.01 K/cumm [facility] Blood specimen (specimen) 04/29/2019 3:13 AM CDT 04/29/2019 4:04 AM CDT Greyson Reeves MD LAB BLOOD ORDERABLES Final R esult Performing Organization Address [facility]/ZIP Co de Phone Number [facility] [address] [place] [address] * Urine culture Urine (04/28/2019 7:20 AM CDT) Report Final Report: No growth [facility] Urine 04/28/2019 7:20 AM CDT 04/28/2019 8:58 AM CDT Narrative [facility] - 04/29/2019 11:35 AM CDT Urine culture reflexed based upon urinalysis results. Testing performed by [facility] ([phone]) Petros Menon MD LAB MICROBIOLOGY - NERAL ORDERABLES Final Result Performing Organization Address [facility] Co de Phone Number [facility] [address] [place] [address] * (ABNORMAL) Urinalysis, microscopic only (04/28/2019 7:20 AM CDT) WBC, ur 11-20(A) 0 - 5 /HPF [facility] RBC, ur 6-10(A) 0 - 2 /HPF [facility] Epithelial cells, squamous, ur 11-20(A) 0 - 5 /HPF [facility] Comment:Suggestive of contam ination. Consider recollection by clean catch. Epithelial cells, transitional, ur 1-5 0 - 0 /HPF [facility] Urine 04/28/2019 7:20 AM CDT 04/28/2019 7:50 AM CDT Petros Menon MD LAB URINE ORDERABLES Final Result Performing Organization Address [facility]/ZIP Co [place] [address] * (ABNORMAL) Urinalysis reflex to microscopic and [...] AM CDT 04/28/2019 7:50 AM CDT Narrative [facility] - 04/28/2019 8:04 AM CDT ?? Urine pH is affected by diet, medications, systemic acid-base disturbances, and renal tubular function. ??pH may affect urinary stone formation. ??For example, urine pH below 6.0 may help reduce the tendency for calcium phosphate stones and pH greater than 6.0 may reduce the tendency for uric acid stone formation. Source: [employer]. Last revised 07-18-2017 us Petros Menon MD LAB MICROBIOLOGY - GE NERAL ORDERABLES Final Result Performing Organization Address [facility]/ZIP Co de Phone Number [place] [address] * (ABNORMAL) CBC without differential (04/28/2019 4:37 AM CDT) WBC 8.0 3.8 - 9.9 K/cumm [facility] Hgb 9.3(L) 11.9 - 15.5 g/dL [facility] Hct 28.6(L) 35.6 - 45.5 % [facility] Plt 209 150 - 400 K/cumm [facility] MPV 10.6 9.1 - 12.3 fL [facility] RBC 3.15(L) 3.90 - 5.20 M/cumm [facility] MCV 90.8 81.3 - 96.4 fL [facility] MCH 29.5 27.1 - 33.3 pg [facility] MCHC 32.5 32.3 - 35.7 g/dL [facility] RDW CV 14.0 11.1 - 14.9 % [facility] RDW SD 46.5 35.7 - 48.1 fL [facility] NRBC abs 0.00 0.00 - 0.01 K/cumm [facility] Blood specimen (specimen) 04/28/2019 4:37 AM CDT 04/28/2019 5:03 AM CDT Narrative [facility] - 04/28/2019 5:13 AM CDT THE COLLECTION LOCATION IS [facility] Petros Menon MD LAB BLOOD ORDERABLES Final Result Performing Organization Address City/[facility] Co de Phone Number [address] [address] * (ABNORMAL) Phosphorus (04/28/2019 4:37 AM CDT) [facility] Phosphorus, pl 1.9(L) 2.3 - 4.5 mg/dL [facility] Blood specimen (specimen) 04/28/2019 4:37 AM CDT 04/28/2019 5:03 AM CDT Narrative [facility] - 04/28/2019 5:33 AM CDT THE COLLECTION LOCATION IS [facility] Petros Menon MD LAB BLOOD ORDERABLES Final Result Performing Organization Address [facility]/ZIP Co de Phone Number [address] [address] * Magnesium (04/28/2019 4:37 AM CDT) [facility] Magnesium 1.9 1.4 - 2.5 mg/dL [facility] Blood specimen (specimen) 04/28/2019 4:37 AM CDT 04/28/2019 5:03 AM CDT Narrative [facility] - 04/28/2019 5:33 AM CDT THE [facility] COLLECTION LOCATION IS [facility] Petros Menon MD LAB BLOOD ORDERABLES Final Result [facility] [address] [place] [address] * (ABNORMAL) Basic metabolic panel (04/28/2019 4:37 AM CDT) [facility] Sodium 134(L) 135 - 145 mmol/L [facility] Potassium, pl 2.9(L) 3.3 - 4.9 mmol/L [facility] Chloride 101 97 - 110 mmol/L [facility] CO2 25 22 - 32 mmol/L [facility] Anion gap 8 2 - 15 mmol/L [facility] BUN 19 8 - 25 mg/dL [facility] Creatinine 1.21(H) 0.60 - 1.10 mg/dL [facility] Glucose 145 70 - 199 mg/dL [facility] [...] 2017. Calcium 7.8(L) 8.5 - 10.3 mg/dL [facility] Blood specimen (specimen) 04/28/2019 4:37 AM CDT 04/28/2019 5:03 AM CDT Narrative [facility] - 04/28/2019 5:33 AM CDT THE BJ COLLECTION LOCATION IS [facility] MOUNIKA us Petros Menon MD LAB BLOOD ORDERABLES Final Result Performing Organization Address City/[facility]/ZIP Co de Phone Number [address] [address] * POCT lactate (04/28/2019 12:04 AM CDT) Lactate POC i-STAT 1.7 0.7 - 2.2 mmol/L [facility] Blood specimen (specimen) 04/28/2019 12:04 AM CDT 04/28/2019 12:04 AM CDT us Greyson Reeves MD LAB POCT ORDERABLES - DEVICE Final Result Performing Organization Address [facility] de Phone Number [address] [address] * Chest X-Ray Pa and Lat (if [...] CDT) Magnesium 2.1 1.4 - 2.5 mg/dL [facility] Blood specimen (specimen) 04/27/2019 9:10 PM CDT 04/27/2019 9:23 PM CDT us Notinfile Unknown LAB BLOOD ORDERABLES Final Res ult [facility] [address] [place] [address] * (ABNORMAL) Differential, auto (04/27/2019 9:10 PM CDT) Neutrophil abs 9.3(H) 1.7 - 6.5 K/cumm [facility] Imm gran abs 0.2(H) 0.0 - 0.1 K/cumm [facility] Lymphocyte abs 0.4(L) 0.8 - 3.3 K/cumm [facility] Monocyte abs 0.9(H) 0.2 - 0.8 K/cumm [facility] Eosinophil abs 0.0 0.0 - 0.5 K/cumm [facility] Basophil abs 0.0 0.0 - 0.1 K/cumm [facility] Neutrophil pct 85.9 % [facility] Comment: Interpretive Data Percent cell count reference ranges are not reported, since discordance with absolute values may lead to misinterpretation of CBC data. Current Interpretive Data was last revised on 2017. Imm gran pct 1.4 % [facility] Comment: Interpretive Data Percent cell count reference ranges are not reported, since discordance with absolute values may lead to misinterpretation of CBC data. Current Interpretive Data was last revised on 2017. Lymphocyte pct 3.4 % [facility] Comment: Interpretive Data Percent cell count reference ranges are not reported, since discordance with absolute values may lead to misinterpretation of CBC data. Current Interpretive Data was last revised on 2017. Monocyte pct 8.3 % [facility] Comment: Interpretive Data Percent cell count reference ranges are not reported, since discordance with absolute values may lead to misinterpretation of CBC data. Current Interpretive Data was last revised on 2017. Eosinophil pct 0.5 % [facility] Comment: Interpretive Data Percent cell count reference ranges are not reported, since discordance with absolute values may lead to misinterpretation of CBC data. Current Interpretive Data was last revised on 2017. Basophil pct 0.5 % [facility] Comment: Interpretive Data Percent cell count reference ranges are not reported, since discordance with absolute values may lead to misinterpretation of CBC data. Current Interpretive Data was last revised on 2017. Blood specimen (specimen) 04/27/2019 9:10 PM CDT 04/27/2019 9:23 PM CDT us Petros Menon MD LAB BLOOD ORDERABLES Final Result [facility] [address] [place] [address] * Blood culture Blood (04/27/2019 9:10 PM CDT) Report Final Report: No growth [facility] Blood specimen (specimen) 04/27/2019 9:10 PM CDT 04/27/2019 9:41 PM CDT Narrative [facility] - 05/03/2019 7:01 AM CDT [...] organism identification may be performed using the Global Integrity Gram-Positive Blood Culture Assay. This assay detects microbial DNA in positive blood culture broth via hybridization of target DNA to capture oligonucleotides on a microarray. This assay has been cleared by the [place] Food and Drug Administration and its performance characteristics have been verified by the [facility]. 5. For questions about this culture, contact the Microbiology Laboratory at [phone]. Interpretive data was last revised on 2018. Petros Menon MD LAB MICROBIOLOGY - [facility] ORDERABLES Final Result [facility] Department [place] [address] * Blood culture Blood (04/27/2019 9:10 PM CDT) Report Final Report: No growth [facility] Blood specimen (specimen) 04/27/2019 9:10 PM CDT 04/27/2019 9:41 PM CDT Narrative [facility] - 05/03/2019 7:01 AM CDT [...] performance characteristics have been verified by the [facility]. 5. For questions about this culture, contact the Microbiology Laboratory at [phone]. Interpretive data was last revised on 2018. us Petros Menon MD LAB MICROBIOLOGY - [facility] ORDERABLES Final Result [facility] Department [place] [address] * (ABNORMAL) Comprehensive metabolic panel (04/27/2019 9:10 PM CDT) Sodium 134(L) 135 - 145 mmol/L [facility] Potassium, pl 2.9(L) 3.3 - 4.9 mmol/L [facility] Chloride 95(L) 97 - 110 mmol/L [facility] CO2 25 22 - 32 mmol/L [facility] Anion gap 14 2 - 15 mmol/L [facility] BUN 16 8 - 25 mg/dL [facility] Creatinine 1.29(H) 0.60 - 1.10 mg/dL [facility] Glucose 209(H) 70 - 199 mg/dL [facility] [...] Calcium 9.0 8.5 - 10.3 mg/dL [facility] Bilirubin, total 0.9 0.1 - 1.2 mg/dL [facility] Protein, pl 6.9 6.5 - 8.5 g/dL [facility] Albumin 2.8(L) 3.5 - 5.0 g/dL [facility] Alk phos 216(H) 40 - 130 Units/L [facility] ALT 36 7 - 45 Units/L [facility] AST 49(H) 10 - 45 Units/L [facility] Blood specimen (specimen) 04/27/2019 9:10 PM CDT 04/27/2019 9:23 PM CDT Narrative [facility] - 04/27/2019 9:56 PM CDT THE BJ COLLECTION LOCATION IS Petros Menon MD LAB BLOOD ORDERABLES Final Result [facility] [address] [address] * (ABNORMAL) CBC with auto differential (04/27/2019 9:10 PM CDT) [facility] WBC 10.8(H) 3.8 - 9.9 K/cumm [facility] Hgb 10.6(L) 11.9 - 15.5 g/dL [facility] Hct 33.4(L) 35.6 - 45.5 % [facility] Plt 322 150 - 400 K/cumm [facility] MPV 10.6 9.1 - 12.3 fL [facility] RBC 3.71(L) 3.90 - 5.20 M/cumm [facility] MCV 90.0 81.3 - 96.4 fL [facility] MCH 28.6 27.1 - 33.3 pg [facility] MCHC 31.7(L) 32.3 - 35.7 g/dL [facility] RDW CV 14.1 11.1 - 14.9 % [facility] RDW SD 46.0 35.7 - 48.1 fL [facility] NRBC abs 0.00 0.00 - 0.01 K/cumm [facility] Blood specimen (specimen) 04/27/2019 9:10 PM CDT 04/27/2019 9:23 PM CDT Narrative [facility] - 04/27/2019 9:31 PM CDT THE BJ COLLECTION LOCATION IS us Petros Menon MD LAB BLOOD ORDERABLES Final Result [facility] [address] [place] [address] * (ABNORMAL) POCT lactate (04/27/2019 9:00 PM CDT) Lactate POC i-STAT 2.4(H) 0.7 - 2.2 mmol/L [facility] Blood specimen (specimen) 04/27/2019 9:00 PM CDT 04/27/2019 9:00 PM CDT us Notinfile Unknown LAB POCT ORDERABLES - DEVICE F inal Result [facility] [address] [place] [address] documented in this encounter Visit Diagnoses Diagnosis [...] Perkins RN)[id number] (Not Given - Provider: Jef oJshi RN - Reason: Order parameters not met)[id number] [...] Sat04/28/19 at 0335, Indications: Pain influenza trivalent [id number] (FLUZONE HIGH DOSE) 180 mcg/0.5 mL vaccine [...] 04/27/2019 documented in this encounter Care Teams Beer Runner Relationship Specialty Start Date End Date Julio César Briseno MD PCP - General 10/01/16 Eren Cr MD Referring Physician Medical Oncology 11/25/18 Yohana Bowen MD Radiation Oncologist Radiation Oncology 11/25/18 documented as of this encounter
--- OUTSIDE RECORDS SUMMARY | 2024-06-26 02:18 | XMS_ITS | Encounter Summary ---
Author Organization [facility] Address [address] [place] [address] Phone Care Team Providers Care Mechanic Name Role Phone Julio César Briseno MD Primary Care Provider Eren Cr MD Unavailable [phone] Yohana Bowen MD Unavailable Encounter Details Date Type Department Care Team (Late st Contact Info) Description 05/13/2019 Orders Only [facility] On[facility] [address] [facility] Advanced Medicine 7th [place] [address] [place] [address] Mayela Williamson RN Neuro-endocrine carcinoma (CMS/HCC) (Primary Dx) Social History Tobacco Use Types Packs/Day Years Used Date Smoking Tobacco: Never Smokeless Tobacco: Never Alcohol Use Standard Drinks/Week Comments Yes 1 (1 standard drink = 0.6 oz pur e alcohol) Comments No Sex and Gender Information Value Date Recorded Sex Assigned at Not on file Legal Sex Female 2:41 PM CORRECTION WORKER Gender Identity Not on file Sexual Orientation Straight 02/19/2021 9: 29 AM CDT Occupation Industry Job Start Date Job End Date retired Not on file Not on file Not on file documented as of this encounter Plan of Treatment Not on file documented as of this encounter Results * (ABNORMAL) Chromogranin A (06/01/2019 10:46 AM CORRECTION WORKER) Chromogranin A 376(H) <93 ng/mL [facility] Comment: Impaired renal or hepatic function or treatment with proton pump inhibitors may result in artifactual elevations of Chromogranin A. ADDITIONAL INFORMATION This test was developed and its performance characteristics determined by [facility] in a manner consistent with [...] absence of malignant disease. Test Performed by: [place] [address] Security Installation Technician: Immanuel Novak M.D. Ph.D.; CLIA# [id number] Blood specimen (specimen) 06/01/2019 10:46 AM CORRECTION WORKER 06/01/2019 11:30 AM CORRECTION WORKER Eren Cr MD LAB BLOOD ORDERABLES Final Re sult [facility] One [facility] Department [place] [address] * (ABNORMAL) Comprehensive metabolic panel (06/01/2019 10:46 AM CORRECTION WORKER) Pathologist [facility] Sodium 142 135 - 145 mmol/L [facility] Potassium, pl 4.3 3.3 - 4.9 mmol/L [facility] Chloride 109 97 - 110 mmol/L [facility] CO2 28 22 - 32 mmol/L [facility] Anion gap 6 2 - 15 mmol/L [facility] BUN 11 8 - 25 mg/dL [facility] Creatinine 0.81 0.60 - 1.10 mg/dL [facility] Glucose 123 70 - 199 mg/dL [facility] Comment: Interpretive Data Fasting glucose [...] 2017. Calcium 10.4(H) 8.5 - 10.3 mg/dL [facility] Bilirubin, total 0.4 0.1 - 1.2 mg/dL [facility] Protein, pl 6.7 6.5 - 8.5 g/dL [facility] Albumin 4.0 3.5 - 5.0 g/dL [facility] Alk phos 78 40 - 130 Units/L [facility] ALT 14 7 - 45 Units/L [facility] AST 19 10 - 45 Units/L [facility] Blood specimen (specimen) 06/01/2019 10:46 AM CORRECTION WORKER 06/01/2019 10:55 AM CORRECTION WORKER us Eren Cr MD LAB BLOOD ORDERABLES Final [facility] One [facility] Department [place] [address] * (ABNORMAL) CBC with auto differential (06/01/2019 10:45 AM CORRECTION WORKER) WBC 4.3 3.8 - 9.8 K/cumm [facility] Comment:Testing performed by : [facility], [facility] [id number] Hgb 12.2 12.1 - 15.1 g/dL [facility] Comment:Testing performed by : [facility], [facility] [id number] Hct 36.3 36.1 - 44.3 % [facility] Comment:Testing performed by : [facility], [facility] [phone] Plt 132(L) 140 - 440 K/cumm [facility] Comment:Testing performed by : [facility], [address] [place] [phone] MPV 7.7 6.8 - 10.4 fL [facility] Comment:Testing performed by : [place] [id number] RBC 4.01 3.90 - 5.00 M/cumm [facility] Comment:Testing performed by : [facility], [address] [place], [place] [phone] MCV 90.6 80.0 - 97.6 fL [facility] Comment:Testing performed by : [place] [id number] MCH 30.5 26.7 - 33.7 pg [facility] Comment:Testing performed by : [place] [id number] MCHC 33.7 32.7 - 35.5 g/dL [facility] Comment:Testing performed by : [facility], [address] [place], [place] [phone] RDW CV 15.8(H) 11.8 - 14.6 % [facility] Comment:Testing performed by : [facility], [address] [place] [phone] NRBC abs 0.00 0.00 - 0.01 K/cumm [facility] Comment:Testing performed by : [place] [phone] Blood specimen (specimen) 06/01/2019 10:45 AM CORRECTION WORKER 06/01/2019 10:49 AM CORRECTION WORKER us Eren Cr MD LAB BLOOD ORDERABLES Final Re sult [facility] One [facility] Department [place] [address] documented in this encounter Visit Diagnoses Diagnosis Neuro-endocrine carcinoma (HCC)- Primary Other malignant neoplasm of unspecified site documented in this encounter Care Teams Mechanic Relationship Specialty Start Date End Date Julio César Briseno MD PCP - General 10/01/16 Eren Cr MD Referring Physician Medical Oncology 11/25/18 Yohana Bowen MD Radiation Oncologist Radiation Oncology 11/25/18 documented as of this encounter
--- OUTSIDE RECORDS SUMMARY | 2024-06-26 02:18 | XMS_ITS | Encounter Summary ---
Author Organization [facility] Address [address] [place] [address] Phone Care Team Providers Care Quality Assurance Intern Name Role Phone Julio César Briseno MD Primary Care Provider [phone] Eren Cr MD Unavailable [phone] Yohana Bowen MD Unavailable Encounter Details Date Type Department Care Team (Late st Contact Info) Description 05/28/2019 Orders Only [facility] [address] [facility] Advanced Medicine 7th [place] [address] [place] [address] Jeevan Martino, [place] [address] [place], [place] [id number] Social History Tobacco Use Types Packs/Day Years Used Date Smoking Tobacco: Never Smokeless Tobacco: Never Alcohol Use Standard Drinks/Week Comments Yes 1 (1 standard drink = 0.6 oz pur e alcohol) Comments No Sex and Gender Information Value Date Recorded Sex Assigned at Not on file Legal Sex Female 2: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 Gender Identity Not on file Sexual Orientation Straight 02/19/2021 9: 29 AM CDT Occupation Industry Job Start Date Job End Date retired Not on file Not on file Not on file documented as of this encounter Plan of Treatment Not on file documented as of this encounter Visit Diagnoses Not on filedocumented in this encounter Care Teams Quality Assurance Intern Relationship Specialty Start Date End Date Julio César Briseno MD PCP - General 10/01/16 Eren Cr MD Referring Physician Medical Oncology 11/25/18 Yohana Bowen MD Radiation Oncologist Radiation Oncology 11/25/18 documented as of this encounter
--- OUTSIDE RECORDS SUMMARY | 2024-06-26 02:18 | XMS_ITS | Encounter Summary ---
Author Organization [facility] Address [address] [place] [address] Phone Care Team Providers Care Laborer Filter Plant Name Role Phone Julio César Briseno MD Primary Care Provider [phone] Eren Cr MD Unavailable [phone] Yohana Bowen MD Unavailable Reason for Visit * Auth/Cert Specialty Diagnoses / Procedures Referred By Evelyne t Referred To Contact Referral ID Status Reason Start Date Expiration Date Visits Re quested Visits Authorized [id number] 1 1 Encounter Details Date Type Department Care Team (Latest Contact Info) Description 04/26/2019 3:00 PM CDT Home Care Visit [facility] [place] [address] [address] [place] [address] Valentina Talbot, [place] SN OASIS START OF CARE Social History Tobacco Use Types Packs/Day Years Used Date Smoking Tobacco: Never Smokeless Tobacco: Never Alcohol Use Standard Drinks/Week Comments Yes 1 (1 standard drink = 0.6 oz pur e alcohol) Comments No Sex and Gender Information Value Date Recorded Sex Assigned at Not on file Legal Sex Female 2:41 PM 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 9 Active 1 goal linked to scheduled/docume nted intervention 1 goal intervention scheduled/documen omar in this visit Standardized Guidelines Disciplines: Usp Standardized Guidelines 9 Active 1 goal linked to scheduled/docume nted intervention 2 goal interventions scheduled/documen omar in this visit Pillow Precautions Disciplines: Usp, Occupational Therapy Pillow Precautions 9 Active 1 goal linked to scheduled/docume nted intervention 1 goal intervention scheduled/documen omar in this visit Risk for imbalanced nutrition Disciplines: Usp less then body requirements: nutritional intake insufficient to meet metabolic needs related to Colostomy 9 Active 1 goal linked to scheduled/docume nted intervention 2 goal interventions scheduled/documen omar in this visit Risk for deficient fluid volume Disciplines: Usp At risk for decreased fluid related to Colostomy 9 Active 1 goal linked to scheduled/docume nted intervention 4 goal interventions scheduled/documen omar in this visit Coping with disturbed body image Disciplines: Usp change in mental picture related to Colostomy 9 Active 1 goal linked to scheduled/docume nted intervention 1 goal intervention scheduled/documen omar in this visit Knowledge Deficit - Ostomy Disciplines: Usp 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 9 Active 1 goal linked to scheduled/docume nted intervention 4 goal interventions scheduled/documen omar in this visit Wound Risk of Infection Disciplines: Usp Risk of infections related to wounds 9 Active 1 goal linked to scheduled/docume nted intervention 3 goal interventions scheduled/documen omar in this visit Wound Education and Management Disciplines: Usp Deficiency of cognitive information related to wound care 9 Active 1 goal linked to scheduled/docume nted intervention 3 goal interventions scheduled/documen omar in this visit Wound Care Disciplines: Usp Wound care needed 9 Active 1 goal [...] visit during episode of care Description: Home sharebroker to measure vital signs during every home health visit during episode of care. Monitor patient's vital signs every home health visit No Understanding of when to notify MD in absence of home care staff Description: Understanding of when to notify MD in absence of home care staff Standardized Guidelines No Demonstrate knowledge of universal precautions Description: Demonstrate knowledge of universal precautions Pillow Precautions No Maintain Nutrtion Description: Maintain weight [...] universal precautions and home infection control measures Problem:Pillow Precautions Goal:Demonstrate knowledge of universal precautions Completed [...] on supply order and how to find feeder catcher # as prepare for discharge from homecare. Enroll patient in the sample programs from [facility] ( ), [facility] ( ) and [facility] ( ) prior to discharge. Problem:Knowledge [...] symptoms of infection and when to notify PUBLIC SERVICES LIBRARIAN and/or physician per Wound Education Booklet. Instruct [...] review and recommendation made by Callie Lance [facility], [facility], [employer] documented in this encounter Care Teams Laborer Filter Plant Relationship Specialty Start Date End Date Julio César Briseno MD PCP - General 10/01/16 Eren Cr MD Referring Physician Medical Oncology 11/25/18 Yohana Bowen MD Radiation Oncologist Radiation Oncology 11/25/18 documented as of this encounter
--- OUTSIDE RECORDS SUMMARY | 2024-06-26 02:18 | XMS_ITS | Encounter Summary ---
Author Organization [facility] Healthcare Address [address] [place] [address] Care Team Providers Care Automobile Detailer Name Role Phone Julio César Briseno MD Primary Care Provider [phone] Eren Cr MD Unavailable [phone] Yohana Bowen MD Unavailable Encounter Details Date Type Department Care Team (Late st Contact Info) Description 06/02/2019 Telephone [facility] Radiology [address] [place] [address] Yvonne Villeda, RN Social History Tobacco Use Types Packs/Day Years Used Date Smoking Tobacco: Never Smokeless Tobacco: Never Alcohol Use Standard Drinks/Week Comments Yes 1 (1 standard drink = 0.6 oz pur e alcohol) Comments No Sex and Gender Information Value Date Recorded Sex Assigned at Not on file Legal Sex Female 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
--- OUTSIDE RECORDS SUMMARY | 2024-06-26 02:18 | XMS_ITS | Encounter Summary ---
Author Organization [facility] Healthcare Address [address] [place] [address] Care Team Providers Care Manager Of Broadcast Content Name Role Phone Julio César Briseno MD Primary Care Provider + [phone] Eren Cr MD Unavailable [phone] Yohana Bowen MD Unavailable Reason for Referral * Diagnostic Imaging (Routine) - Closed Specialty Diagnoses / Procedures Referred By Evelyne bowman Referred To Contact Radiology Diagnoses Neuroendocrine carcinoma (HCC) Procedures IR PICC Line Placement > 5 Years Yohana Bowen MD [email or web address] [facility] [address] [place] [address] Phone: tel: fax: [facility] [address] [place] [address] Referral ID Status Reason Start Date Expiration Date Visits Re quested Visits Authorized [id number] Closed 05/27/2019 12/05/2020 1 1 H FOODS CLERK Reason for Visit * Diagnostic Imaging (Routine) - Closed Specialty Diagnoses / Procedures Referred By Evelyne bowman Referred To Contact Radiology Diagnoses Neuroendocrine carcinoma (HCC) Procedures IR PICC Line Placement > 5 Years Yohana Bowen MD [address] [facility] # [facility] [address] [place] [address] Phone: tel: fax: [facility] [address] [facility] [place] [address] Referral ID Status Reason Start Date Expiration Date Visits Re quested Visits Authorized [id number] Closed 05/27/2019 12/05/2020 1 1 Encounter Details Date Type Department Care Team (Latest Contact Info) Description 06/09/2019 1:16 PM FRESH FOODS CLERK - 06/09/2019 2:56 PM FRESH FOODS CLERK Hospital Encounter [facility] Radiology [facility] [address] [place] [address] Yohana Bowen MD [address] [facility] [address] [place] [address] Neuroendocrine carcinoma (CMS/HCC) Discharge Disposition: Discharge to home or self care Social History Tobacco Use Types Packs/Day Years Used Date Smoking Tobacco: Never Smokeless Tobacco: Never Alcohol Use Standard Drinks/Week Comments Yes 1 (1 standard drink = 0.6 oz pur e alcohol) Comments No Sex and Gender Information Value Date Recorded Sex Assigned at Not on file Legal Sex Female 2:41 PM FRESH FOODS CLERK Gender Identity Not on file Sexual Orientation Straight 02/19/2021 9: 29 AM CDT Occupation Industry Job Start Date Job End Date retired Not on file Not on file Not on file documented as of this encounter Last Filed Vital Signs Vital Sign Reading Time Taken Comments Blood Pressure 161/89 06/09/2019 2:46 PM FRESH FOODS CLERK Pulse 82 06/09/2019 2:46 PM FRESH FOODS CLERK Temperature 36 ??C (96.8 ??F) 06/09/2019 2:46 PM FRESH FOODS CLERK Respiratory Rate 14 06/09/2019 2:46 PM FRESH FOODS CLERK Oxygen Saturation 97% 06/09/2019 2:35 PM FRESH FOODS CLERK Inhaled Oxygen Concentration - - Weight - - Height - - Body Mass Index - - documented in this encounter Discharge Diagnoses Diagnosis Other malignant neuroendocrine tumors (HCC) - OTHER MALIGNANT NEUROENDOCRINE TUMORS Other secondary neuroendocrine tumors (HCC) - OTHER SECONDARY NEUROENDOCRINE TUMORS documented in this encounter Discharge Instructions * Discharge Instructions* Isra Edwards MD - 06/09/2019 2:46 PM FRESH FOODS CLERK Interventional Radiology Outpatient Discharge Instructions/Note Diagnosis: Metastatic [...] dirty. To contact an Interventional Radiologist at [facility] call [phone] Saturday through Saturday from 7:30am-4:30pm. At all other times call [phone] and ask that the Interventional Radiologist be paged. To contact an Interventional Radiologist at [facility] call [phone] Saturday through Saturday from 7:30am-3:30pm. Special instructions: Please call Interventional Radiology for any procedure related questions or problems including: ?? Extreme swelling or bruising at the site. ?? Unusual drainage or bleeding from procedure site. ?? Fever of 101.5 F for more than 24 hours. ?? Severe procedure related pain. H FOODS CLERK documented in this encounter Medications at Time of Discharge simvastatin (ZOCOR) 20 mg tablet Take 1 tablet (20 mg total) by mouth nightly ascorbic acid, vitamin C, 500 mg capsuleIndications :supplement Take 1 tablet by mouth dental equipment technician before breakfast 07/04/2016 4 cholecalciferol (VITAMIN D-3) 2,000 unit capsule Take 1 capsule (2,000 Units total) by mouth daily 30 capsule 2 04/25/2019 3 clotrimazole-betam ethasone (LOTRISONE) cream Apply 1 Application topically daily as needed (rash) 4 coenzyme G28-lrhctmw E 100-5 mg-unit capsuleIndications :supplement Take 1 tablet by mouth dental equipment technician before breakfast [address] (CYMBALTA) 30 [...] all comfort and safety measures in place. H FOODS CLERK documented in this encounter Miscellaneous Notes * Post-Procedure Note - Isra Edwards MD - 06/09/2019 2:42 PM FRESH FOODS CLERK Radiology Brief Post Procedure Note Attending: Dr. Nuñez Linoleum Floor Installer: Dr. Edwards Sedation/Anesthesia: Local Pre-Op/Pre-Procedure Diagnosis: Metastatic neuroendocrine tumor Post-Op/Post-Procedure Diagnosis: Same Procedure Performed: PICC placement Procedure Findings: Successful dual lumen PICC placement via left brachial vein Complications: None Estimated Blood Loss: None Specimens: None Condition: Stable Full report to follow. 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 She presents for PICC line placement prior to PRRT therapy. Planned Procedure: PICC placement H FOODS CLERK documented in this encounter Plan of Treatment Not on file documented as of this encounter Procedures Procedure Name Priority Date/Time Associated Diagnosis Comments IR PICC LINE PLACEMENT > 5 YEARS Schedule Routine, Read Routine (OP Routine) 06/09/2019 2:40 PM FRESH FOODS CLERK Neuroendocrine carcinoma (CMS/HCC) documented in this encounter Results * IR PICC Line Placement > 5 Years (06/09/2019 2:40 PM FRESH FOODS CLERK) Anatomical Region Laterality Modality Body N/A Radio Fluoroscop y 06/09/2019 3:20 PM FRESH FOODS CLERK Impressions 06/09/2019 3:38 PM FRESH FOODS CLERK Successful nontunneled peripherally inserted catheter placement via [...] Brock Nuñez M.D. Narrative 06/09/2019 3:38 PM FRESH FOODS CLERK EXAMINATION: ??NONTUNNELED PERIPHERALLY INSERTED CENTRAL VENOUS CATHETER [...] was obtained. ??Prior to beginning the procedure, [place] Protocol was used to confirm the patient's [...] was obtained. Prior to beginning the procedure, [place] Protocol was used to confirm the patient's [...] Indwelling Vascular Catheter Given 06/09/2019 2:36 PM FRESH FOODS CLERK 2.5 mL heparin 100 unit/mL injection Code/trauma/sedation medication, Starting on Sat06/09/19 at 1436, Indications: Maintain Patency of Indwelling Vascular CatheterIndications:Maintain Patency of Indwelling Vascular Catheter Given 06/09/2019 2:36 PM FRESH FOODS CLERK 2.5 mL lidocaine PF (XYLOCAINE) 10 mg/mL (1 %) preservative free injection Code/trauma/sedation medication, Starting on Sat06/09/19 at 1425, Intra-Procedure (IR), Indications: Administration of Local AnesthesiaIndications:Administr ation of Local Anesthesia Given 06/09/2019 2:25 PM FRESH FOODS CLERK 10 mL Left Arm documented in this encounter Active and Recently Administered Medications Times are shown in FRESH FOODS CLERK. PRN Medication Order 06/07/2019 06/08/2019 06/09/2019 heparin [...] MD) documented in this encounter Care Teams Manager Of Broadcast Content Relationship Specialty Start Date End Date Julio César Briseno MD PCP - General 10/01/16 Eren Cr MD Referring Physician Medical Oncology 11/25/18 Yohana Bowen MD Radiation Oncologist Radiation Oncology 11/25/18 documented as of this encounter
--- OUTSIDE RECORDS SUMMARY | 2024-06-26 02:18 | XMS_ITS | Encounter Summary ---
Author Organization [facility] es Address [address] [place] [address] Phone Care Team Providers Care Study Hall Supervisor Name Role Phone Julio César Briseno MD Primary Care Provider [phone] Eren Cr MD Unavailable [phone] Yohana Bowen MD Unavailable Reason for Visit * Auth/Cert Specialty Diagnoses / Procedures Referred By Evelyne t Referred To Contact Referral ID Status Reason Start Date Expiration Date Visits Re quested Visits Authorized [id number] 1 1 Encounter Details Date Type Department Care Team (Late st Contact Info) Description 05/15/2019 1:00 PM STRATEGIC SOURCING CONSULTANT Home Care Visit [facility] [address] [address] [address] [place] [address] Misa Barrow RN SN HOME VISIT Social History Tobacco Use Types Packs/Day Years Used Date Smoking Tobacco: Never Smokeless Tobacco: Never Alcohol Use Standard Drinks/Week Comments Yes 1 (1 standard drink = 0.6 oz pur e alcohol) Comments No Sex and Gender Information Value Date Recorded Sex Assigned at Not on file Legal Sex Female 2:41 PM STRATEGIC SOURCING CONSULTANT Gender Identity Not on file Sexual Orientation Straight 02/19/2021 9: 29 AM CDT Occupation Industry Job Start Date Job End Date retired Not on file Not on file Not on file documented as of this encounter Last Filed Vital Signs Vital Sign Reading Time Taken Comments Blood Pressure 120/62 05/15/2019 10:15 AM STRATEGIC SOURCING CONSULTANT Pulse 86 05/15/2019 10:15 AM STRATEGIC SOURCING CONSULTANT Temperature 36.4 ??C (97.5 ??F) 05/15/2019 10:[address] Respiratory Rate 18 05/15/2019 10:15 AM STRATEGIC SOURCING CONSULTANT Oxygen Saturation 98% 05/15/2019 10:15 AM STRATEGIC SOURCING CONSULTANT Inhaled Oxygen Concentration - - Weight [...] Date Status Goals Interventions Homebound Status Disciplines: Correction, Occupational Therapy Patient's homebound status 9 Active 1 goal linked to scheduled/docume nted intervention 1 goal intervention scheduled/documen omar in this visit Monitor patient's vital signs every home health visit Disciplines: Correction, Occupational Therapy Monitor patient's vital signs every home health visit. 9 Active 1 goal linked to scheduled/docume nted intervention 1 goal intervention scheduled/documen omar in this visit Risk for imbalanced nutrition Disciplines: Correction less then body requirements: nutritional intake insufficient to meet metabolic needs related to Colostomy 9 Active 1 goal linked to scheduled/docume nted intervention 1 goal intervention scheduled/documen omar in this visit Risk for deficient fluid volume Disciplines: Correction At risk for decreased fluid related to Colostomy 9 Active 1 goal linked to scheduled/docume nted intervention 1 goal intervention scheduled/documen omar in this visit Coping with disturbed body image Disciplines: Correction change in mental picture related to Colostomy 9 Active 1 goal linked to scheduled/docume nted intervention 1 goal intervention scheduled/documen omar in this visit Knowledge Deficit - Ostomy Disciplines: Correction 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 9 Active 1 goal linked to scheduled/docume nted intervention 3 goal interventions scheduled/documen omar in this visit Wound Risk of Infection Disciplines: Correction Risk of infections related to wounds 9 Active 1 goal linked to scheduled/docume nted intervention 1 goal intervention scheduled/documen omar in this visit Wound Education and Management Disciplines: Correction Deficiency of cognitive information related to wound care 9 Active 1 goal linked to scheduled/docume nted intervention 1 goal intervention scheduled/naomi nelson in this visit Wound Care Disciplines: Correction Wound care needed 05/15/2019 Active 1 goal [...] visit during episode of care Description: Home furnace clerk to measure vital signs during every [...] Health Visit - Actions and Narratives Actions #[id number], 1 tube of stoma p aste Patient richy stoma area is sore and very red, called message sent to Mj Arce that recommends that patient try the stoma paste for healing of richy stoma area. Patient saw her MD yesterday and he removed the wound vac and told patient to pack the wound with NS damp gauze. documented in this encounter Care Teams Study Hall Supervisor Relationship Specialty Start Date End Date Julio César Briseno MD PCP - General 10/01/16 Eren Cr MD Referring Physician Medical Oncology 11/25/18 Yohana Bowen MD Radiation Oncologist Radiation Oncology 11/25/18 documented as of this encounter
--- OUTSIDE RECORDS SUMMARY | 2024-06-26 02:18 | XMS_ITS | Encounter Summary ---
Author Organization [facility] Home [facility] es Address [address] [place] [address] Phone Care Team Providers Care Concrete Crusher Loader Operator Name Role Phone Julio César Briseno MD Primary Care Provider [phone] Eren Cr MD Unavailable Yohana Bowen MD Unavailable Reason for Visit * Auth/Cert Specialty Diagnoses / Procedures Referred By Evelyne t Referred To Contact Referral ID Status Reason Start Date Expiration Date Visits Re quested Visits Authorized [id number] 1 1 Encounter Details Date Type Department Care Team (Late st Contact Info) Description 05/22/2019 1:00 PM GUEST SERVICES MANAGER Home Care Visit [facility] [address] [address] [address] [place] [address] Misa Barrow RN SN HOME VISIT Social History Tobacco Use Types Packs/Day Years Used Date Smoking Tobacco: Never Smokeless Tobacco: Never Alcohol Use Standard Drinks/Week Comments Yes 1 (1 standard drink = 0.6 oz pur e alcohol) Comments No Sex and Gender Information Value Date Recorded Sex Assigned at Not on file Legal Sex Female 2:41 PM GUEST SERVICES MANAGER Gender Identity Not on file Sexual Orientation Straight 02/19/2021 9: 29 AM CDT Occupation Industry Job Start Date Job End Date retired Not on file Not on file Not on file documented as of this encounter Last Filed Vital Signs Vital Sign Reading Time Taken Comments Blood Pressure 128/68 05/22/2019 2:17 PM GUEST SERVICES MANAGER Pulse 88 05/22/2019 2:17 PM GUEST SERVICES MANAGER Temperature 36.9 ??C (98.4 ??F) 05/22/2019 2:17 PM CS T Respiratory Rate 18 05/22/2019 2:17 PM GUEST SERVICES MANAGER Oxygen Saturation 98% 05/22/2019 2:17 PM GUEST SERVICES MANAGER Inhaled Oxygen Concentration - - Weight [...] Status Goals Interve ntions Homebound Status Disciplines: Fci, Occupational Therapy Patient's homebound status 04/26/2019 Active 1 goal linked to scheduled/docume nted intervention 1 goal intervention scheduled/documen omar in this visit Monitor patient's vital signs every home health visit Disciplines: Fci, Occupational Therapy Monitor patient's vital signs every home health visit. 04/26/2019 Active 1 goal linked to scheduled/docume nted intervention 1 goal intervention scheduled/documen omar in this visit [place] Precautions Disciplines: Fci, Occupational Therapy [place] Precautions 04/26/2019 Active 1 goal linked to scheduled/docume nted intervention 1 goal intervention scheduled/documen omar in this visit Risk for deficient fluid volume Disciplines: Fci At risk for decreased fluid related to Colostomy 04/26/2019 Active 1 goal linked to scheduled/docume nted intervention 1 goal intervention scheduled/documen omar in this visit Coping with disturbed body image Disciplines: Fci change in mental picture related to Colostomy 04/26/2019 Active 1 goal linked to scheduled/docume nted intervention 1 goal intervention scheduled/documen omar in this visit Knowledge Deficit - Ostomy Disciplines: Fci 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 04/26/2019 Active 1 goal linked to scheduled/docume nted intervention 1 goal intervention scheduled/documen omar in this visit Wound Risk of Infection Disciplines: Fci Risk of infections related to wounds 04/26/2019 Active 1 goal linked to scheduled/docume nted intervention 1 goal intervention scheduled/documen omar in this visit Wound Care Disciplines: Fci Wound care needed 05/15/2019 Active 1 goal [...] visit during episode of care Description: Home camp assistant to measure vital signs during every home health visit during episode of care. Monitor patient's vital signs every home health visit No Demonstrate knowledge of universal precautions Description: Demonstrate knowledge of universal precautions [place] Precautions No Maintain Hydration Description: Maintain adequate [...] universal precautions and home infection control measures Problem:[place] Precautions Goal:Demonstrate knowledge of universal precautions Completed [...] symptoms of infection and when to notify [facility] and/or physician per Wound Education Booklet. Instruct [...] Health Visit - Actions and Narratives Actions #[id number] Coloplast 71284 #10 [employer] Convex ring #49048 #10 Braba strips paste coloplast 1 box 1 box no sting skin prep Patient saw ostomy nurse on wednesday who changed the type of bag and ostomy care documented in this encounter Care Teams Concrete Crusher Loader Operator Relationship Specialty Start Date End Date Julio César Briseno MD PCP - General 10/01/16 Eren rC MD Referring Physician Medical Oncology 11/25/18 Yohana Bowen MD Radiation Oncologist Radiation Oncology 11/25/18 documented as of this encounter
--- OUTSIDE RECORDS SUMMARY | 2024-06-26 02:18 | XMS_ITS | Encounter Summary ---
Author Organization [facility] Healthcare Address [address] [place] [address] Care Team Providers Care Psychological Assistant Name Role Phone Julio César Briseno MD Primary Care Provider [phone] Eren Cr MD Unavailable [phone] Yohana Bowen MD Unavailable Reason for Referral * Diagnostic Imaging (Routine) - Closed Specialty Diagnoses / Procedures Referred By Contac t Referred To Contact Radiology Diagnoses Neuroendocrine carcinoma (HCC) Procedures IR PICC Line Placement > 5 Years Yohana Bowen MD [address] [place] [address] [address] [place] [address] Phone: tel: fax: [address] [address] Referral ID Status Reason Start Date Expiration Date Visits Re quested Visits Authorized [id number] Closed 05/27/2019 12/05/2020 1 1 OLOGY TECH Encounter Details Date Type Department Care Team (Late st Contact Info) Description 05/27/2019 Orders Only [facility] Advanced Medicine Radiation Oncology [address] [place] [address] [place] [address] Hien Soto RN Neuroendocrine carcinoma (CMS/HCC) (Primary Dx) Social History Tobacco Use Types Packs/Day Years Used Date Smoking Tobacco: Never Smokeless Tobacco: Never Alcohol Use Standard Drinks/Week Comments Yes 1 (1 standard drink = 0.6 oz pur e alcohol) Comments No Sex and Gender Information Value Date Recorded Sex Assigned at Not on file Legal Sex Female 2:41 PM RADIOLOGY TECH Gender Identity Not on file Sexual [...] prior to procedure, patient will need a regional dedicated truck driver. If on any blood thinners, stop taking 24 to 48 hours prior. If on Xarelto or Plavix, must stop taking 4 to 5 days prior. 06/10/19: Lutathera, CAM LL arrive at 0700. CBC and Immunodeficency labs ordered per study. Instructed to get injection 4 to 24 hours post PRRT Lodging Needed: denies Patient aware of ALL appt and verbalized understanding. OLOGY TECH documented in this encounter Plan of Treatment Not on file documented as of this encounter Results * (ABNORMAL) Immune deficiency profile (06/10/2019 7:32 AM RADIOLOGY TECH) CD4 pct 44 31 - 64 % [facility] CD4 Absolute 164(L) 365 - 1,294 cells/mcL [facility] CD8 pct 29 12 - 40 % [facility] CD8 Absolute 110(L) 187 - 781 cells/mcL [facility] CD4/CD8 ratio 1.5 0.9 - 4.4 [facility] Blood specimen (specimen) 06/10/2019 7:32 AM RADIOLOGY TECH 06/10/2019 7:41 AM RADIOLOGY TECH Yohana Bowen MD LAB BLOOD ORDERABLES Final Resul t [facility] Department [place] [address] * (ABNORMAL) CBC with auto differential (06/10/2019 7:32 AM RADIOLOGY TECH) WBC 4.5 3.8 - 9.9 K/cumm [facility] Hgb 11.7(L) 11.9 - 15.5 g/dL [facility] Hct 35.4(L) 35.6 - 45.5 % [facility] Plt 124(L) 150 - 400 K/cumm [facility] MPV 10.8 9.1 - 12.3 fL [facility] RBC 3.93 3.90 - 5.20 M/cumm [facility] MCV 90.1 81.3 - 96.4 fL [facility] MCH 29.8 27.1 - 33.3 pg [facility] MCHC 33.1 32.3 - 35.7 g/dL [facility] RDW CV 14.1 11.1 - 14.9 % [facility] RDW SD 46.6 35.7 - 48.1 fL [facility] NRBC abs 0.00 0.00 - 0.01 K/cumm [facility] Blood specimen (specimen) 06/10/2019 7:32 AM RADIOLOGY TECH 06/10/2019 7:57 AM RADIOLOGY TECH us Yohana Bowen MD LAB BLOOD ORDERABLES Final Resul t Performing Organization Address [facility] de Phone Number [facility] Department [place] [address] * IR PICC Line Placement > 5 Years (06/09/2019 2:40 PM RADIOLOGY TECH) Anatomical Region Laterality Modality Body N/A Radio Fluoroscop y 06/09/2019 3:20 PM RADIOLOGY TECH Impressions 06/09/2019 3:38 PM RADIOLOGY TECH Successful nontunneled peripherally inserted catheter placement via [...] Brock Nuñez M.D. Narrative 06/09/2019 3:38 PM RADIOLOGY TECH EXAMINATION: ??NONTUNNELED PERIPHERALLY INSERTED CENTRAL VENOUS CATHETER [...] was obtained. ??Prior to beginning the procedure, [place] Protocol was used to confirm the patient's [...] was obtained. Prior to beginning the procedure, [place] Protocol was used to confirm the patient's [...] site documented in this encounter Care Teams Psychological Assistant Relationship Specialty Start Date End Date Julio César Briseno MD PCP - General 10/01/16 Eren Cr MD Referring Physician Medical Oncology 11/25/18 Yohana Bowen MD Radiation Oncologist Radiation Oncology 11/25/18 documented as of this encounter
--- OUTSIDE RECORDS SUMMARY | 2024-06-26 02:18 | XMS_ITS | Encounter Summary ---
Author Organization [facility] Home Care Servic es Address [address] [place] [address] Phone Care Team Providers Care Side Guider Name Role Phone Julio César Briseno MD Primary Care Provider [phone] Eren Cr MD Unavailable [phone] Yohana Bowen MD Unavailable Reason for Visit * Auth/Cert Specialty Diagnoses / Procedures Referred By Evelyne t Referred To Contact Referral ID Status Reason Start Date Expiration Date Visits Re quested Visits Authorized [id number] 1 1 Encounter Details Date Type Department Care Team (Late st Contact Info) Description 05/18/2019 3:00 PM MORTGAGE LOAN UNDERWRITER Home Care Visit [facility] [address] [address] [address] [place] [address] Misa Barrow RN SN HOME VISIT Social History Tobacco Use Types Packs/Day Years Used Date Smoking Tobacco: Never Smokeless Tobacco: Never Alcohol Use Standard Drinks/Week Comments Yes 1 (1 standard drink = 0.6 oz pur e alcohol) Comments No Sex and Gender Information Value Date Recorded Sex Assigned at Not on file Legal Sex Female 2:41 PM MORTGAGE LOAN UNDERWRITER Gender Identity Not on file Sexual Orientation Straight 02/19/2021 9: 29 AM CDT Occupation Industry Job Start Date Job End Date retired Not on file Not on file Not on file documented as of this encounter Last Filed Vital Signs Vital Sign Reading Time Taken Comments Blood Pressure 122/68 05/18/2019 2:33 PM MORTGAGE LOAN UNDERWRITER Pulse 78 05/18/2019 2:33 PM MORTGAGE LOAN UNDERWRITER Temperature 36.6 ??C (97.8 ??F) 05/18/2019 2:33 PM CS T Respiratory Rate 16 05/18/2019 2:33 PM MORTGAGE LOAN UNDERWRITER Oxygen Saturation 96% 05/18/2019 2:33 PM MORTGAGE LOAN UNDERWRITER Inhaled Oxygen Concentration - - Weight - [...] Status Goals Interve ntions Homebound Status Disciplines: Mcc, Occupational Therapy Patient's homebound status 04/26/2019 Active [...] visit Coping with disturbed body image Disciplines: Mcc change in mental picture related to Colostomy [...] Mcc Risk of infections related to wounds 04/26/2019 Active 1 goal linked to scheduled/docume nted intervention 1 goal intervention scheduled/documen omar in this visit Wound Education and Management Disciplines: Mcc Deficiency of cognitive information related to wound [...] visit during episode of care Description: Home retirement plan counselor to measure vital signs during every home [...] Health Visit - Actions and Narratives Actions #[id number] 1 box #74020 1 box skin prep documented in this encounter Care Teams Side Guider Relationship Specialty Start Date End Date Julio César Briseno MD PCP - General 10/01/16 Eren Cr MD Referring Physician Medical Oncology 11/25/18 Yohana Bowen MD Radiation Oncologist Radiation Oncology 11/25/18 documented as of this encounter
--- OUTSIDE RECORDS SUMMARY | 2024-06-26 02:18 | XMS_ITS | Encounter Summary ---
Author Organization [facility] Address [address] [place] [address] Phone Care Team Providers Care Sailor Name Role Phone Julio César Briseno MD Primary Care Provider Eren Cr MD Unavailable [phone] Yohana Bowen MD Unavailable Reason for Visit * Reason Onset Date Comments discharge follow up 04/27/2019 Encounter Details Date Type Department Care Team (Late st Contact Info) Description 04/27/2019 Telephone [facility] Surgery [address] [facility] [address]th [place] [address] [place] [address] Mya Cam, field observer follow up Social History Tobacco Use Types Packs/Day Years Used Date Smoking Tobacco: Never Smokeless Tobacco: Never Alcohol Use Standard Drinks/Week Comments Yes 1 (1 standard drink = 0.6 oz pur e alcohol) Comments No Sex and Gender Information Value Date Recorded Sex Assigned at Not on file 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
--- OUTSIDE RECORDS SUMMARY | 2024-06-26 02:18 | XMS_ITS | Encounter Summary ---
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
--- OUTSIDE RECORDS SUMMARY | 2024-06-26 02:18 | XMS_ITS | Encounter Summary ---
Author Organization [facility] Address [address] [facility] [address] [place] [address] Phone Care Team Providers Care Financial Administrative Assistant Name Role Phone Julio César Briseno MD Primary Care Provider Eren Cr MD Unavailable [phone] Yohana Bowen MD Unavailable Reason for Visit * Reason Comments Bowel Obstruction New Patient Ostomy Care Encounter Details Date Type Department Care Team (Late st Contact Info) Description 05/14/2019 3:00 PM EDGE ROLLER Office Visit [facility] Surgery [address] [facility] 2[address] [place] [address] Greyson Reeves MD [address] [facility] [id number] [place] 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) (Primary Dx) Social History Tobacco Use Types Packs/Day Years Used Date Smoking Tobacco: Never Smokeless Tobacco: Never Alcohol Use Standard Drinks/Week Comments Yes 1 (1 standard drink = 0.6 oz pur e alcohol) Comments No Sex and Gender Information Value Date Recorded Sex Assigned at Not on file Legal Sex Female 2:41 PM EDGE ROLLER Gender Identity Not on file Sexual Orientation Straight 02/19/2021 9: 29 AM CDT Occupation Industry Job Start Date Job End Date retired Not on file Not on file Not on file documented as of this encounter Last Filed Vital Signs Vital Sign Reading Time Taken Comments Blood Pressure 129/61 05/14/2019 2:48 PM EDGE ROLLER Pulse 115 05/14/2019 2:48 PM EDGE ROLLER Temperature 36.6 ??C (97.9 ??F) 05/14/2019 2:48 PM CS T Respiratory Rate - - Oxygen Saturation 96% 05/14/2019 2:48 PM EDGE ROLLER Inhaled Oxygen Concentration - - Weight 75.1 kg (165 lb 8 oz) 05/14/2019 2:48 PM EDGE ROLLER Height 160 cm (5' 3 ) 05/14/2019 2:48 PM EDGE ROLLER Body Mass Index 29.32 05/14/2019 2:48 PM EDGE ROLLER documented in this encounter Progress Notes * [...] colostomy for a large bowel obstruction. Her postoperative course has been notable for wound infection and [...] > 5 YEARS N/A 02/17/2019 ? ? AL REMOVAL OF TONSILS,<12 Y/O Tonsillectomy - (Added by TW Conv) ??? AL TOTAL ABDOM HYSTERECTOMY Hysterectomy - (Added by TW Conv) HOME MEDICATIONS : cholecalciferol (VITAMIN D-3) 2,000 unit capsule clotrimazole-betamethasone (LOTRISONE) cream coenzyme [id number] (CO Q-10, WITH VIT E,) 100-5 [...] weeks. Greyson Reeves MD 05/14/2019 3:25 PM ROLLER documented in this encounter Plan of Treatment [...] 01/13/2020 added in this encounter Care Teams Financial Administrative Assistant Relationship Specialty Start Date End Date Julio César Briseno MD PCP - General 10/01/16 Eren Cr MD Referring Physician Medical Oncology 11/25/18 Yohana Bowen MD Radiation Oncologist Radiation Oncology 11/25/18 documented as of this encounter
--- OUTSIDE RECORDS SUMMARY | 2024-06-26 02:18 | XMS_ITS | Encounter Summary ---
Author Organization [facility] Address [address] [place] [address] Phone Care Team Providers Care Air Brake Worker Name Role Phone Julio César Briseno MD Primary Care Provider Eren Cr MD Unavailable [phone] Yohana Bowen MD Unavailable Reason for Visit * Reason Onset Date Comments home health care 05/07/2019 Encounter Details Date Type Department Care Team (Late st Contact Info) Description 05/07/2019 Telephone [facility] Surgery [address] [facility] 2nd [address] [place] [address] Delfina Galloway Marvin home health care Social History Tobacco Use Types Packs/Day Years Used Date Smoking Tobacco: Never Smokeless Tobacco: Never Alcohol Use Standard Drinks/Week Comments Yes 1 (1 standard drink = 0.6 oz pur e alcohol) Comments No Sex and Gender Information Value Date Recorded Sex Assigned at Not on file 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
--- OUTSIDE RECORDS SUMMARY | 2024-06-26 02:18 | XMS_ITS | Encounter Summary ---
Author Organization [facility] Home Care Servic es Address [address] [place] [address] Phone Care Team Providers Care Juvenile Justice Officer Name Role Phone Julio César Briseno MD Primary Care Provider [phone] Eren Cr MD Unavailable [phone] Yohana Bowen MD Unavailable Reason for Visit * Auth/Cert Specialty Diagnoses / Procedures Referred By Evelyne t Referred To Contact Referral ID Status Reason Start Date Expiration Date Visits Re quested Visits Authorized [id number] 1 1 Encounter Details Date Type Department Care Team (Late st Contact Info) Description 05/08/2019 1:00 PM CDT Home Care Visit [facility] [address] [address] [address] [place] [address] Misa Barrow RN SN HOME VISIT Social History Tobacco Use Types Packs/Day Years Used Date Smoking Tobacco: Never Smokeless Tobacco: Never Alcohol Use Standard Drinks/Week Comments Yes 1 (1 standard drink = 0.6 oz pur e alcohol) Comments No Sex and Gender Information Value Date Recorded Sex Assigned at Not on file 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 9 Active 1 goal linked to scheduled/docume nted intervention 1 goal intervention scheduled/documen omar in this visit [place] Precautions Disciplines: Long-Term, Occupational Therapy [place] Precautions 9 Active 1 goal linked to scheduled/docume nted intervention 1 goal intervention scheduled/documen omar in this visit Risk for imbalanced nutrition Disciplines: Long-Term less then body requirements: nutritional intake insufficient to meet metabolic needs related to Colostomy 9 Active 1 goal linked to scheduled/docume nted intervention 2 goal interventions scheduled/documen omar in this visit Coping with disturbed body image Disciplines: Long-Term change in mental picture related to Colostomy 9 Active 1 goal linked to scheduled/docume nted intervention 2 goal interventions scheduled/documen omar in this visit Knowledge Deficit - Ostomy Disciplines: Long-Term 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 Monitor patient's vital signs every home health visit No Demonstrate knowledge of universal precautions Description: Demonstrate knowledge of universal precautions [place] Precautions No Maintain Nutrtion Description: Maintain weight [...] universal precautions and home infection control measures Problem:[place] Precautions Goal:Demonstrate knowledge of universal precautions Completed [...] correctly Negative pressure wound therapy Description: Device: [email or web address] activac Skilled nurse to perform NPWT dressing [...] daily. documented in this encounter Care Teams Juvenile Justice Officer Relationship Specialty Start Date End Date Julio César Briseno MD PCP - General 10/01/16 Eren Cr MD Referring Physician Medical Oncology 11/25/18 Yohana Bowen MD Radiation Oncologist Radiation Oncology 11/25/18 documented as of this encounter
--- OUTSIDE RECORDS SUMMARY | 2024-06-26 02:18 | XMS_ITS | Encounter Summary ---
Author Organization [facility] Address [address] [place] [address] Phone Care Team Providers Care Piccoloist Name Role Phone Julio César Briseno MD Primary Care Provider Eren Cr MD Unavailable [phone] Yohana Bowen MD Unavailable Encounter Details Date Type Department Care Team (Late st Contact Info) Description 06/03/[address] [facility] Oncology [address] 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 OOD PROCESSOR documented in this encounter Plan of Treatment Not on file documented as of this encounter Visit Diagnoses Not on filedocumented in this encounter Care Teams Piccoloist Relationship Specialty Start Date End Date Julio César Briseno MD PCP - General 10/01/16 Eren Cr MD Referring Physician Medical Oncology 11/25/18 Yohana Bowen MD Radiation Oncologist Radiation Oncology 11/25/18 documented as of this encounter
--- OUTSIDE RECORDS SUMMARY | 2024-06-26 02:18 | XMS_ITS | Encounter Summary ---
Author Organization [facility] Address [address] [place] [address] Phone Care Team Providers Care Lumber Planer Name Role Phone Julio César Briseno MD Primary Care Provider [phone] Eren Cr MD Unavailable [phone] Yohana Bowen MD Unavailable Reason for Visit * Auth/Cert Specialty Diagnoses / Procedures Referred By Evelyne t Referred To Contact Referral ID Status Reason Start Date Expiration Date Visits Re quested Visits Authorized [id number] 1 1 Encounter Details Date Type Department Care Team (Latest Contact Info) Description 05/06/2019 2:00 PM CDT Home Care Visit [facility] [address] [address] [address] [place] [address] Misa Barrow RN SN OASIS RESUMPTION OF CARE Social History Tobacco Use Types Packs/Day Years Used Date Smoking Tobacco: Never Smokeless Tobacco: Never Alcohol Use Standard Drinks/Week Comments Yes 1 (1 standard drink = 0.6 oz pur e alcohol) Comments No Sex and Gender Information Value Date Recorded Sex Assigned at Not on file 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 9 Active 1 goal linked to scheduled/docume nted intervention 1 goal intervention scheduled/documen omar in this visit Standardized Guidelines Disciplines: Retirement Standardized Guidelines 9 Active 1 goal linked to scheduled/docume nted intervention 1 goal intervention scheduled/documen omar in this visit [place] Precautions Disciplines: Retirement, Occupational Therapy [place] Precautions 9 Active 1 goal linked to scheduled/docume nted intervention 1 goal intervention scheduled/documen omar in this visit Risk for imbalanced nutrition Disciplines: Retirement less then body requirements: nutritional intake insufficient to meet metabolic needs related to Colostomy 9 Active 1 goal linked to scheduled/docume nted intervention 1 goal intervention scheduled/documen omar in this visit Risk for deficient fluid volume Disciplines: Retirement At risk for decreased fluid related to Colostomy 9 Active 1 goal linked to scheduled/docume nted intervention 2 goal interventions scheduled/documen omar in this visit Coping with disturbed body image Disciplines: Retirement change in mental picture related to Colostomy 9 Active 1 goal linked to scheduled/docume nted intervention 2 goal interventions scheduled/documen omar in this visit Knowledge Deficit - Ostomy Disciplines: Retirement 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 Monitor patient's vital signs every home health visit No Understanding of when to notify MD in absence of home care staff Description: Understanding of when to notify MD in absence of home care staff Standardized Guidelines No Demonstrate knowledge of universal precautions Description: Demonstrate knowledge of universal precautions [place] Precautions No Maintain Nutrtion Description: Maintain weight [...] universal precautions and home infection control measures Problem:[place] Precautions Goal:Demonstrate knowledge of universal precautions Completed [...] image Goal:Acceptance of Ostomy Completed Called [facility] Arce re: wound vac as ordered will follow [...] Visit - Actions and Narratives Actions # [id number] 1 box 4x4 2 abd, 1 box [...] item, assistance includes verbal cuing and/or supervision. FM0084 - Coding: Safety and Quality of Performance ? If helper assistance is required because patient? s performance is unsafe or of poor quality, score according to amount of assistance provided. Activities may be completed with or without assistive devices. Based on the documentation, human assistance such as verbal cues/steadying was required to complete this activity. [id number] SP7489.C.1 - Toileting Hygiene: The ability to maintain perineal hygiene, adjust clothes before and after voiding or having a bowel movement. If managing an ostomy, include wiping the opening but not managing equipment. Documented Answer: 06. Independent ? Patient completes the activity by him/herself with no assistance from a helper. Recommendation: 04. Supervision or touching assistance ? [place] provides verbal cues and/or touching/steadying and/or contact guard assistance as patient completes activity. Assistance may be provided throughout the activity or intermittently. HN5305 - Mobility: Code the patient? s usual performance at [facility] for each activity using the 6-point scale. If activity was not attempted at SOC/KUNAL, code the reason. Code the patient? s discharge goal(s) using the 6-point scale. Use of codes 07, 09, 10 or 88 is permissible to code discharge goal(s). Based on the documentation, human assistance such as verbal cues/steadying was required to complete this activity. [id number] RH8116.E.1 - Chair/xmh-zp-plwca transfer: The ability to transfer to and from a bed to a chair (or wheelchair). Documented Answer: 06. Independent ? Patient completes the activity by him/herself with no assistance from a helper. Recommendation: 04. Supervision or touching assistance ? [place] provides verbal cues and/or touching/steadying and/or contact guard assistance as patient completes activity. Assistance may be provided throughout the activity or intermittently. [id number] XP5835.F.1 - Toilet tranfer: The ability to get on and off a toilet or commode. Documented Answer: 06. Independent ? Patient completes the activity by him/herself with no assistance from a helper. Recommendation: 04. Supervision or touching assistance ? [place] provides verbal cues and/or touching/steadying and/or contact guard assistance as patient completes activity. Assistance may be provided throughout the activity or intermittently. SQ0342 JT0198.G.1 - Car Transfer: The ability to transfer in and out of a car or van on the passenger side. Does not include the ability to open/close door or fasten seat belt. Documented Answer: 06. Independent ? Patient completes the activity by him/herself with no assistance from a helper. Recommendation: 04. Supervision or touching assistance ? [place] provides verbal cues and/or touching/steadying and/or contact guard assistance as patient completes activity. Assistance may be provided throughout the activity or intermittently. ZR1182 PC8229.I.1 - Walk 10 feet: Once standing, the ability to walk at least 10 feet in a room, corridor, or similar space. If SOC/KUNAL performance is coded 07, 09, 10 or 88, skip to [id number], 1 step (curb) Documented Answer: 06. Independent ? Patient completes the activity by him/herself with no assistance from a helper. Recommendation: 04. Supervision or touching assistance ? [place] provides verbal cues and/or touching/steadying and/or contact guard assistance as patient completes activity. Assistance may be provided throughout the activity or intermittently. RD3856 OX8820.J.1 - Walk 50 feet with two turns: Once standing, the ability to walk 50 feet and make two turns. Documented Answer: 06. Independent ? Patient completes the activity by him/herself with no assistance from a helper. Recommendation: 04. Supervision or touching assistance ? [place] provides verbal cues and/or touching/steadying and/or contact guard assistance as patient completes activity. Assistance may be provided throughout the activity or intermittently. [id number] RW2877.K.1 - Walk 150 feet: Once standing, the ability to walk at least 150 feet in a corridor or similar space. Documented Answer: 06. Independent ? Patient completes the activity by him/herself with no assistance from a helper. Recommendation: 04. Supervision or touching assistance ? [place] provides verbal cues and/or touching/steadying and/or contact guard assistance as patient completes activity. Assistance may be provided throughout the activity or intermittently. [id number] MY9689.P.1 - Picking up object: The ability to bend/stoop from a standing position to brass pickler a small object, such as a spoon, from the floor. Documented Answer: 06. Independent ? Patient completes the activity by him/herself with no assistance from a helper. Recommendation: 04. Supervision or touching assistance ? [place] provides verbal cues and/or touching/steadying and/or contact guard assistance as patient completes activity. Assistance may be provided throughout the activity or intermittently. M1028 - Comorbidities and Co-existing Conditions Recommendation: 3 - None of the above Chuckya Diaz DPO 05/12/2019 Chart review and recommendation made by Laura Enamorado CCS, [employer] documented in this encounter Care Teams Lumber Planer Relationship Specialty Start Date End Date Julio César Briseno MD PCP - General 10/01/16 Eren Cr MD Referring Physician Medical Oncology 11/25/18 Yohana Bowen MD Radiation Oncologist Radiation Oncology 11/25/18 documented as of this encounter
--- OUTSIDE RECORDS SUMMARY | 2024-06-26 02:18 | XMS_ITS | Encounter Summary ---
Author Organization [facility] Address [address] [place] [address] Phone Care Team Providers Care Technical Engineer Name Role Phone Julio César Briseno MD Primary Care Provider [phone] Eren Cr MD Unavailable [phone] Yohana Bowen MD Unavailable Reason for Visit * Auth/Cert Specialty Diagnoses / Procedures Referred By Evelyne t Referred To Contact Referral ID Status Reason Start Date Expiration Date Visits Re quested Visits Authorized [id number] 1 1 Encounter Details Date Type Department Care Team (Latest Contact Info) Description 05/27/2019 3:00 PM PRODUCTION HAND Home Care Visit [facility] [address] [address] [address] [place] [address] Anne-Marie Goldstein OT OT INITIAL EVALUATION Social History Tobacco Use Types Packs/Day Years Used Date Smoking Tobacco: Never Smokeless Tobacco: Never Alcohol Use Standard Drinks/Week Comments Yes 1 (1 standard drink = 0.6 oz pur e alcohol) Comments No Sex and Gender Information Value Date Recorded Sex Assigned at Not on file Legal Sex Female 2:41 PM PRODUCTION HAND Gender Identity Not on file Sexual Orientation Straight 02/19/2021 9: 29 AM CDT Occupation Industry Job Start Date Job End Date retired Not on file Not on file Not on file documented as of this encounter Last Filed Vital Signs Vital Sign Reading Time Taken Comments Blood Pressure 120/62 05/27/2019 3:11 PM PRODUCTION HAND Pulse 94 05/27/2019 3:11 PM PRODUCTION HAND Temperature 37.1 ??C (98.8 ??F) 05/27/2019 3:11 PM CS T Respiratory Rate 18 05/27/2019 3:11 PM PRODUCTION HAND Oxygen Saturation 96% 05/27/2019 3:11 PM PRODUCTION HAND Inhaled Oxygen Concentration - - Weight - [...] Status Goals Interve ntions Homebound Status Disciplines: Senior Care, Occupational Therapy Patient's homebound status 04/26/2019 Active 1 goal linked to scheduled/docume nted intervention 1 goal intervention scheduled/documen omar in this visit Monitor patient's vital signs every home health visit Disciplines: Senior Care, Occupational Therapy Monitor patient's vital signs every [...] visit during episode of care Description: Home optimization engineer to measure vital signs during every home [...] change. documented in this encounter Care Teams Technical Engineer Relationship Specialty Start Date End Date Julio César Briseno MD PCP - General 10/01/16 Eren Cr MD Referring Physician Medical Oncology 11/25/18 Yohana Bowen MD Radiation Oncologist Radiation Oncology 11/25/18 documented as of this encounter
--- OUTSIDE RECORDS SUMMARY | 2024-06-26 02:18 | XMS_ITS | Encounter Summary ---
Author Organization [facility] Address [address] [place] [address] Phone Care Team Providers Care Sow Farm Barn Technician Name Role Phone Julio César Briseno MD Primary Care Provider [phone] Eren Cr MD Unavailable [phone] Yohana Bowen MD Unavailable Reason for Visit * Auth/Cert Specialty Diagnoses / Procedures Referred By Evelyne t Referred To Contact Referral ID Status Reason Start Date Expiration Date Visits Re quested Visits Authorized [id number] 1 1 Encounter Details Date Type Department Care Team (Late st Contact Info) Description 05/27/2019 1:00 PM GAGGERMAN Home Care Visit [facility] [address] [address] [address] [place] [address] Misa Barrow RN SN HOME VISIT Social History Tobacco Use Types Packs/Day Years Used Date Smoking Tobacco: Never Smokeless Tobacco: Never Alcohol Use Standard Drinks/Week Comments Yes 1 (1 standard drink = 0.6 oz pur e alcohol) Comments No Sex and Gender Information Value Date Recorded Sex Assigned at Not on file Legal Sex Female 2:41 PM GAGGERMAN Gender Identity Not on file Sexual Orientation Straight 02/19/2021 9: 29 AM CDT Occupation Industry Job Start Date Job End Date retired Not on file Not on file Not on file documented as of this encounter Last Filed Vital Signs Vital Sign Reading Time Taken Comments Blood Pressure 120/62 05/27/2019 3:04 PM GAGGERMAN Pulse 94 05/27/2019 3:04 PM GAGGERMAN Temperature 37.1 ??C (98.8 ??F) 05/27/2019 3:04 PM CS T Respiratory Rate 18 05/27/2019 3:04 PM GAGGERMAN Oxygen Saturation 96% 05/27/2019 3:04 PM GAGGERMAN Inhaled Oxygen Concentration - - Weight - [...] goal intervention scheduled/documen omar in this visit [place] Precautions Disciplines: Senior Care, Occupational Therapy [place] Precautions 04/26/2019 Active 1 goal linked to scheduled/docume nted intervention 1 goal intervention scheduled/documen omar in this visit Risk for deficient fluid volume Disciplines: Senior Care At risk for decreased fluid related to Colostomy 04/26/2019 Active 1 goal linked to scheduled/docume nted intervention 1 goal intervention scheduled/documen omar in this visit Coping with disturbed body image Disciplines: Senior Care change in mental picture related to Colostomy 04/26/2019 Active 1 goal linked to scheduled/docume nted intervention 1 goal intervention scheduled/documen omar in this visit Knowledge Deficit - Ostomy Disciplines: Senior Care 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 04/26/2019 Active 1 goal linked to scheduled/docume nted intervention 1 goal intervention scheduled/documen omar in this visit Wound Risk of Infection Disciplines: Senior Care Risk of infections related to wounds 04/26/2019 Active 1 goal linked to scheduled/docume nted intervention 1 goal intervention scheduled/documen omar in this visit Wound Education and Management Disciplines: Senior Care Deficiency of cognitive information related to wound care 04/26/2019 Active 1 goal linked to scheduled/docume nted intervention 1 goal intervention scheduled/docloi nelson in this visit Wound Care Disciplines: Senior Care Wound care needed 05/15/2019 Active 1 goal [...] visit during episode of care Description: Home deck worker to measure vital signs during every home health visit during episode of care. Monitor patient's vital signs every home health visit No Demonstrate knowledge of universal precautions Description: Demonstrate knowledge of universal precautions [place] Precautions No Maintain Hydration Description: Maintain adequate [...] universal precautions and home infection control measures Problem:[place] Precautions Goal:Demonstrate knowledge of universal precautions Completed [...] change documented in this encounter Care Teams Sow Farm Barn Technician Relationship Specialty Start Date End Date Julio César Briseno MD PCP - General 10/01/16 Eren Cr MD Referring Physician Medical Oncology 11/25/18 Yohana Bowen MD Radiation Oncologist Radiation Oncology 11/25/18 documented as of this encounter
--- OUTSIDE RECORDS SUMMARY | 2024-06-26 02:18 | XMS_ITS | Encounter Summary ---
Author Organization [facility] Address [address] [place] [address] Phone Care Team Providers Care Hoop Flaring Machine Operator Helper Name Role Phone Julio César Briseno MD Primary Care Provider Eren Cr MD Unavailable [phone] Yohana Bowen MD Unavailable Encounter Details Date Type Department Care Team (Late st Contact Info) Description 06/01/2019 10:45 AM HARNESS CLEANER Lab [facility] On[facility] 7th [place] [address] [place] [address] Neuro-endocrine carcinoma (CMS/HCC) Social History Tobacco Use Types Packs/Day Years Used Date Smoking Tobacco: Never Smokeless Tobacco: Never Alcohol Use Standard Drinks/Week Comments Yes 1 (1 standard drink = 0.6 oz pur e alcohol) Comments No Sex and Gender Information Value Date Recorded Sex Assigned at Not on file Legal Sex Female 2:41 PM HARNESS CLEANER Gender Identity Not on file Sexual Orientation Straight 02/19/2021 9: 29 AM CDT Occupation Industry Job Start Date Job End Date retired Not on file Not on file Not on file documented as of this encounter Plan of Treatment Not on file documented as of this encounter Procedures Procedure Name Priority Date/Time Associated Diagnosis Comments CHROMOGRANIN A Routine 06/01/2019 10:46 AM HARNESS CLEANER Neuro-endocrine carcinoma (CMS/HCC) COMPREHENSIVE METABOLIC PANEL Routine 06/01/2019 10:46 AM HARNESS CLEANER Neuro-endocrine carcinoma (CMS/HCC) DIFFERENTIAL AUTO Routine 06/01/2019 10: 45 AM HARNESS CLEANER Neuro-endocrine carcinoma (CMS/HCC) CBC WITH AUTO DIFFERENTIAL Routine 06/01/2019 10:45 AM HARNESS CLEANER Neuro-endocrine carcinoma (CMS/HCC) documented in this encounter Results * (ABNORMAL) Comprehensive metabolic panel (06/01/2019 10:46 AM HARNESS CLEANER) Sodium 142 135 - 145 mmol/L [facility] Potassium, pl 4.3 3.3 - 4.9 mmol/L [facility] Chloride 109 97 - 110 mmol/L [facility] CO2 28 22 - 32 mmol/L [facility] Anion gap 6 2 - 15 mmol/L [facility] BUN 11 8 - 25 mg/dL [facility] Creatinine 0.81 0.60 - 1.10 mg/dL [facility] Glucose 123 70 - 199 mg/dL [facility] Comment: Interpretive Data Fasting glucose [...] total 0.4 0.1 - 1.2 mg/dL [facility] Protein, pl 6.7 6.5 - 8.5 g/dL [facility] Albumin 4.0 3.5 - 5.0 g/dL [facility] Alk phos 78 40 - 130 Units/L [facility] ALT 14 7 - 45 Units/L [facility] AST 19 10 - 45 Units/L [facility] Blood specimen (specimen) 06/01/2019 10:46 AM HARNESS CLEANER 06/01/2019 10:55 AM HARNESS CLEANER Eren Cr MD LAB BLOOD ORDERABLES Final Re sult Performing Organization Address [facility] Co de Phone Number [facility] [place] [address] * (ABNORMAL) Chromogranin A (06/01/2019 10:46 AM HARNESS CLEANER) Chromogranin A 376(H) <93 ng/mL [facility] Comment: Impaired renal or [...] malignant disease. Test Performed by: [facility] [place] [address] Road Freight Conductor: Immanuel Novak M.D. Ph.D.; CLIA# [id number] Blood specimen (specimen) 06/01/2019 10:46 AM HARNESS CLEANER 06/01/2019 11:30 AM HARNESS CLEANER Eren Cr MD LAB BLOOD ORDERABLES Final Re sult [facility] [place] [address] * (ABNORMAL) Differential, auto (06/01/2019 10:45 AM HARNESS CLEANER) Neutrophil abs 3.2 1.8 - 6.6 K/cumm [facility] Comment:Testing performed by : [facility], [address] [place] [phone] Lymphocyte abs 0.5(L) 1.2 - 3.3 K/cumm [facility] Comment:Testing performed by : [facility], [address] [place] [phone] Monocyte abs 0.5 0.2 - 1.2 K/cumm [facility] Comment:Testing performed by : [facility], [address] [place] [phone] Eosinophil abs 0.1 0.0 - 0.5 K/cumm [facility] Comment:Testing performed by : [facility], [address] [place] [phone] Basophil abs 0.0 0.0 - 0.2 K/cumm [facility] Comment:Testing performed by : [facility], [address] [place] [phone] Neutrophil pct 73.5 % [facility] Comment: Interpretive Data Percent cell count reference ranges are not reported, since discordance with absolute values may lead to misinterpretation of CBC data. Current Interpretive Data was last revised on 2017. Testing performed by: [facility], [address] [place] [phone] Lymphocyte pct 10.6 % [facility] Comment: Interpretive Data Percent cell count reference ranges are not reported, since discordance with absolute values may lead to misinterpretation of CBC data. Current Interpretive Data was last revised on 2017. Testing performed by: [facility], [address] [place] [phone] Monocyte pct 12.8 % [facility] Comment:Testing performed by : [facility], [address] [place] [phone] Eosinophil pct 2.5 % [facility] Comment:Testing performed by : [facility], [address] [place] [phone] Basophil pct 0.6 % [facility] Comment:Testing performed by : [facility], [address] [place] [phone] Blood specimen (specimen) 06/01/2019 10:45 AM HARNESS CLEANER 06/01/2019 10:49 AM HARNESS CLEANER us Eren Cr MD LAB BLOOD ORDERABLES Final Re sult [facility] Department [place] [address] * (ABNORMAL) CBC with auto differential (06/01/2019 10:45 AM HARNESS CLEANER) WBC 4.3 3.8 - 9.8 K/cumm [facility] Comment:Testing performed by : [facility], [address] [place] [phone] Hgb 12.2 12.1 - 15.1 g/dL [facility] Comment:Testing performed by : [facility], [address] [place] [phone] Hct 36.3 36.1 - 44.3 % [facility] Comment:Testing performed by : [facility], [address] [place] [phone] Plt 132(L) 140 - 440 K/cumm [facility] Comment:Testing performed by : [facility], [address] [place] [phone] MPV 7.7 6.8 - 10.4 fL [facility] Comment:Testing performed by : [address] [phone] RBC 4.01 3.90 - 5.00 M/cumm [facility] Comment:Testing performed by : [address] [phone] MCV 90.6 80.0 - 97.6 fL [facility] Comment:Testing performed by : [address] [phone] MCH 30.5 26.7 - 33.7 pg [facility] Comment:Testing performed by : [address] [phone] MCHC 33.7 32.7 - 35.5 g/dL [facility] Comment:Testing performed by : [facility], [address] [facility] [phone] RDW CV 15.8(H) 11.8 - 14.6 % [facility] Comment:Testing performed by : [facility], [address] [facility] [phone] NRBC abs 0.00 0.00 - 0.01 K/cumm [facility] Comment:Testing performed by : [facility], [address] [place] [phone] Blood specimen (specimen) 06/01/2019 10:45 AM HARNESS CLEANER 06/01/2019 10:49 AM HARNESS CLEANER us Eren Cr MD LAB BLOOD ORDERABLES Final Re sult [facility] [place] [address] documented in this encounter Visit Diagnoses Diagnosis Neuro-endocrine carcinoma (HCC) Other malignant neoplasm of unspecified site documented in this encounter Care Teams Hoop Flaring Machine Operator Helper Relationship Specialty Start Date End Date Julio César Briseno MD PCP - General 10/01/16 Eren Cr MD Referring Physician Medical Oncology 11/25/18 Yohana Bowen MD Radiation Oncologist Radiation Oncology 11/25/18 documented as of this encounter
--- OUTSIDE RECORDS SUMMARY | 2024-06-26 02:18 | XMS_ITS | Encounter Summary ---
Author Organization [facility] Address [address] [place] [address] Phone Care Team Providers Care State Game Protector Name Role Phone Julio César Briseno MD Primary Care Provider [phone] Eren Cr MD Unavailable [phone] Yohana Bowen MD Unavailable Reason for Visit * Auth/Cert Specialty Diagnoses / Procedures Referred By Evelyne t Referred To Contact Referral ID Status Reason Start Date Expiration Date Visits Re quested Visits Authorized [id number] 1 1 Encounter Details Date Type Department Care Team (Late st Contact Info) Description 05/25/2019 12:00 PM LICENSED CLUB MANAGER Home Care Visit [facility] [address] [address] [address] [place] [address] Misa Barrow RN SN HOME VISIT Social History Tobacco Use Types Packs/Day Years Used Date Smoking Tobacco: Never Smokeless Tobacco: Never Alcohol Use Standard Drinks/Week Comments Yes 1 (1 standard drink = 0.6 oz pur e alcohol) Comments No Sex and Gender Information Value Date Recorded Sex Assigned at Not on file Legal Sex Female 2:41 PM LICENSED CLUB MANAGER Gender Identity Not on file Sexual Orientation Straight 02/19/2021 9: 29 AM CDT Occupation Industry Job Start Date Job End Date retired Not on file Not on file Not on file documented as of this encounter Last Filed Vital Signs Vital Sign Reading Time Taken Comments Blood Pressure 130/62 05/25/2019 12:13 PM LICENSED CLUB MANAGER Pulse 86 05/25/2019 12:13 PM LICENSED CLUB MANAGER Temperature 36.8 ??C (98.2 ??F) 05/25/2019 12:[address] Respiratory Rate 18 05/25/2019 12:13 PM LICENSED CLUB MANAGER Oxygen Saturation 98% 05/25/2019 12:13 PM LICENSED CLUB MANAGER Inhaled Oxygen Concentration - - Weight - - Height - - Body Mass Index - - documented in this encounter Plan of Treatment Not on file documented as of this encounter Visit Diagnoses Not on filedocumented in this encounter Home Health Visit - Care Plan Visit Details Visit Type -SN Home Visit Discipline -[facility] Problems Problem Description Start Date Status Goals Interventions Homebound Status Disciplines: [facility], Occupational Therapy Patient's homebound status 9 Active 1 goal linked to scheduled/docume nted intervention 1 goal intervention scheduled/documen omar in this visit Monitor patient's vital signs every home health visit Disciplines: [facility], Occupational Therapy Monitor patient's vital signs every home health visit. 9 Active 1 goal linked to scheduled/docume nted intervention 1 goal intervention scheduled/documen omar in this visit Shelby Precautions Disciplines: [facility], Occupational Therapy [place] Precautions 9 Active 1 goal linked to scheduled/docume nted intervention 1 goal intervention scheduled/documen omar in this visit Risk for imbalanced nutrition Disciplines: [facility] less then body requirements: nutritional intake insufficient to meet metabolic needs related to Colostomy 9 Active 1 goal linked to scheduled/docume nted intervention 1 goal intervention scheduled/documen omar in this visit Risk for deficient fluid volume Disciplines: [facility] At risk for decreased fluid related to Colostomy 9 Active 1 goal linked to scheduled/docume nted intervention 1 goal intervention scheduled/documen omar in this visit Risk of Impaired Skin Integrity Disciplines: [facility] peristomal epidermis and or dermis at risk of breakdown related to effluent from Colostomy 9 Active 1 goal linked to scheduled/docume nted intervention 1 goal intervention scheduled/documen omar in this visit Knowledge Deficit - Ostomy Disciplines: [facility] 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 9 Active 1 goal linked to scheduled/docume nted intervention 3 goal interventions scheduled/documen omar in this visit Wound Risk of Infection Disciplines: [facility] Risk of infections related to wounds 9 Active 1 goal linked to scheduled/docume nted intervention 1 goal intervention scheduled/documen omar in this visit Wound Care Disciplines: [facility] Wound care needed 05/15/2019 Active 1 goal [...] visit during episode of care Description: Home sales representative advertising to measure vital signs during every home health visit during episode of care. Monitor patient's vital signs every home health visit No Demonstrate knowledge of universal precautions Description: Demonstrate knowledge of universal precautions [place] Precautions No Maintain Nutrtion Description: Maintain weight [...] universal precautions and home infection control measures Problem:[place] Precautions Goal:Demonstrate knowledge of universal precautions Completed [...] secure. documented in this encounter Care Teams State Game Protector Relationship Specialty Start Date End Date Julio César Briseno MD PCP - General 10/01/16 Eren Cr MD Referring Physician Medical Oncology 11/25/18 Yohana Bowen MD Radiation Oncologist Radiation Oncology 11/25/18 documented as of this encounter
--- OUTSIDE RECORDS SUMMARY | 2024-06-26 02:18 | XMS_ITS | Encounter Summary ---
Author Organization [facility] Address [address] [place] [address] Phone Care Team Providers Care Climbing Guide Name Role Phone Julio César Briseno MD Primary Care Provider Eren Cr MD Unavailable [phone] Yohana Bowen MD Unavailable Encounter Details Date Type Department Care Team (Late st Contact Info) Description 05/25/2019 Telephone [facility] Surgery [address] [facility] Advanced Medicine 8th [place] [address] [place] [address] Evangelina Alexandre RMA Social History Tobacco Use Types Packs/Day Years Used Date Smoking Tobacco: Never Smokeless Tobacco: Never Alcohol Use Standard Drinks/Week Comments Yes 1 (1 standard drink = 0.6 oz pur e alcohol) Comments No Sex and Gender Information Value Date Recorded Sex Assigned at Not on file Legal Sex Female 2:41 PM NURSE CHEMICAL DEPENDENCY Gender Identity Not on file Sexual Orientation Straight 02/19/2021 9: 29 AM CDT Occupation Industry Job Start Date Job End Date retired Not on file Not on file Not on file documented as of this encounter Miscellaneous Notes * Telephone Encounter - Evangelina Alexandre RMA - 05/25/2019 3:53 PM CST Misa from [facility] Home Health called today to inform our office that they are going to start occupational therapy to help La. She is in need of ostomy services and care, that they think she would benefit from. She is aware Dr. Reeves will be following home health orders, and has our fax and phone number if they should need anything. She had no further questions. E CHEMICAL DEPENDENCY documented in this encounter Plan of Treatment Not on file documented as of this encounter Visit Diagnoses Not on filedocumented in this encounter Care Teams Climbing Guide Relationship Specialty Start Date End Date Julio César Briseno MD PCP - General 10/01/16 Eren Cr MD Referring Physician Medical Oncology 11/25/18 Yohana Bowen MD Radiation Oncologist Radiation Oncology 11/25/18 documented as of this encounter
--- OUTSIDE RECORDS SUMMARY | 2024-06-26 02:18 | XMS_ITS | Encounter Summary ---
Author Organization [facility] Address [address] [place] [address] Phone Care Team Providers Care Foreign Language Interpreter Name Role Phone Julio César Briseno MD Primary Care Provider [phone] Eren Cr MD Unavailable [phone] Yohana Bowen MD Unavailable Reason for Visit * Auth/Cert Specialty Diagnoses / Procedures Referred By Evelyne t Referred To Contact Referral ID Status Reason Start Date Expiration Date Visits Re quested Visits Authorized [id number] 1 1 Encounter Details Date Type Department Care Team (Late st Contact Info) Description 05/11/2019 1:00 PM EXCHANGE UNDERWRITING CONSULTANT Home Care Visit [facility] [address] [address] [address] [place] [address] Misa Barrow RN SN HOME VISIT Social History Tobacco Use Types Packs/Day Years Used Date Smoking Tobacco: Never Smokeless Tobacco: Never Alcohol Use Standard Drinks/Week Comments Yes 1 (1 standard drink = 0.6 oz pur e alcohol) Comments No Sex and Gender Information Value Date Recorded Sex Assigned at Not on file Legal Sex Female 2:41 PM EXCHANGE UNDERWRITING CONSULTANT Gender Identity Not on file Sexual Orientation Straight 02/19/2021 9: 29 AM CDT Occupation Industry Job Start Date Job End Date retired Not on file Not on file Not on file documented as of this encounter Last Filed Vital Signs Vital Sign Reading Time Taken Comments Blood Pressure 120/60 05/11/2019 2:26 PM EXCHANGE UNDERWRITING CONSULTANT Pulse 92 05/11/2019 2:26 PM EXCHANGE UNDERWRITING CONSULTANT Temperature 36.5 ??C (97.7 ??F) 05/11/2019 2:26 PM CS T Respiratory Rate 18 05/11/2019 2:26 PM EXCHANGE UNDERWRITING CONSULTANT Oxygen Saturation 98% 05/11/2019 2:26 PM EXCHANGE UNDERWRITING CONSULTANT Inhaled Oxygen Concentration - - Weight [...] Date Status Goals Interventions Homebound Status Disciplines: [facility], Occupational Therapy Patient's homebound status 9 Active 1 goal linked to scheduled/docume nted intervention 1 goal intervention scheduled/documen omar in this visit Monitor patient's vital signs every home health visit Disciplines: [facility], Occupational Therapy Monitor patient's vital signs every home health visit. 9 Active 1 goal linked to scheduled/docume nted intervention 2 goal interventions scheduled/documen omar in this visit Brave Precautions Disciplines: Fdc, Occupational Therapy Brave Precautions 9 Active 1 goal linked to scheduled/docume nted intervention 1 goal intervention scheduled/documen omar in this visit Risk for imbalanced nutrition Disciplines: Fdc less then body requirements: nutritional intake insufficient [...] Fdc Risk of infections related to wounds 9 Active 1 goal linked to scheduled/docume nted intervention 2 goal interventions scheduled/documen omar in this visit Wound Care Disciplines: [facility]dc Wound care needed 9 Active 1 goal [...] visit during episode of care Description: Home speech and language clinician to measure vital signs during every home health visit during episode of care. Monitor patient's vital signs every home health visit No Demonstrate knowledge of universal precautions Description: Demonstrate knowledge of universal precautions Brave Precautions No Maintain Nutrtion Description: Maintain weight [...] universal precautions and home infection control measures Problem:Brave Precautions Goal:Demonstrate knowledge of universal precautions Completed [...] symptoms of infection and when to notify ROLL FORM OPERATOR and/or physician per Wound Education Booklet. Instruct patient/caregiver on infection control measures and how to prevent infections Problem:Wound Risk of Infection Goal:Knowledgeable of infection Instruct patient/caregiver on how to recognized signs and symptoms of infection and when to notify ROLL FORM OPERATOR and/or physician per Wound Education Booklet. Instruct [...] Visit - Actions and Narratives Actions # [id number] box each [id number] Pouch ! box each [id number] [address] [place] Called to Dr Briseno spoke with Rosio about patient having vomiting as she had done in the hospital. Also that patient may not be compliant with meds and that the family had been instructed to set meds up in environmental emergencies planner and monitor daily meds intake. Rosio states patient having visit with MD on 05/12, she will leave MD note of concerns. documented in this encounter Care Teams Foreign Language Interpreter Relationship Specialty Start Date End Date Julio César Briseno MD PCP - General 10/01/16 Eren Cr MD Referring Physician Medical Oncology 11/25/18 Yohana Bowen MD Radiation Oncologist Radiation Oncology 11/25/18 documented as of this encounter
--- OUTSIDE RECORDS SUMMARY | 2024-06-26 02:18 | XMS_ITS | Encounter Summary ---
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) Procedures CT Chest Abdomen Pelvis W Contrast Eren Cr MD [address] [place] [address] Phone: tel: fax: [facility] [address] [place] [address] Referral ID Status Reason Start Date Expiration Date Visits Re quested Visits Authorized [id number] Closed 06/01/2019 12/10/2020 1 1 ROLLER OPERATOR Reason for Visit * Diagnostic Imaging (Routine) - Closed Specialty Diagnoses / Procedures Referred By Contac t Referred To Contact Radiology Diagnoses 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) Procedures CT Chest Abdomen Pelvis W Contrast Eren Cr MD [address] [place] [address] Phone: tel: fax: [facility] 1 [facility] [place] [address] Referral ID Status Reason Start Date Expiration Date Visits Re quested Visits Authorized [id number] Closed 06/01/2019 12/10/2020 1 1 Encounter Details Date Type Department Care Team (Latest Contact Info) Description 06/09/2019 3:56 PM RIM ROLLER OPERATOR - 06/09/2019 11:59 PM RIM ROLLER OPERATOR Hospital Encounter [facility] [address] [place] [address] Eren Cr MD [address] [facility] [address] [place] [address] Neuro-endocrine carcinoma (CMS/HCC); Malignant neoplasm metastatic to [...] on file Legal Sex Female 2:41 PM RIM ROLLER OPERATOR Gender Identity Not on file Sexual [...] capsuleIndications :supplement Take 1 tablet by mouth lead supply worker before breakfast 07/04/2016 4 cholecalciferol (VITAMIN D-3) 2,000 unit capsule Take 1 capsule (2,000 Units total) by mouth daily 30 capsule 2 04/25/2019 3 clotrimazole-betam ethasone (LOTRISONE) cream Apply 1 Application topically daily as needed (rash) 4 coenzyme [id number] E 100-5 mg-unit capsuleIndications :supplement Take 1 tablet by mouth lead supply worker before breakfast [address] (CYMBALTA) 30 [...] Read Routine (OP Routine) 06/09/2019 4:54 PM RIM ROLLER OPERATOR 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 to liver (CMS/HCC) documented in this encounter Results * CT Chest Abdomen Pelvis W Contrast (06/09/2019 4:54 PM RIM ROLLER OPERATOR) Anatomical Region Laterality Modality Body N/A Computed Tomogra phy 06/10/2019 7:15 AM RIM ROLLER OPERATOR Impressions 06/10/2019 7:15 AM RIM ROLLER OPERATOR 1. ??Stable disease primarily involving the peritoneum, omentum, and retroperitoneal lymph nodes as detailed. 2. ??Improving abdominal wall fluid and gas collection, now nearly completely resolved. Electronically signed by: Juan Selby M.D. Narrative 06/10/2019 7:15 AM RIM ROLLER OPERATOR EXAMINATION: ??Computed tomography of the chest, abdomen [...] Indwelling Vascular Catheter Given 06/09/2019 4:59 PM RIM ROLLER OPERATOR 50 Units Left Arm ioversol (OPTIRAY 350) syringe syringe 100 mL 100 mL, intravenous, Once in imaging, contrast, Starting on Sat06/09/19 at 1654, For 1 dose Given 06/09/2019 4:55 PM RIM ROLLER OPERATOR 100 mL sodium chloride 0.9% flush 5-20 mL 5-20 mL, intra-catheter, As needed, line care, with each use, Starting on Sat06/09/19 at 1638, Flush volume based on line type, size, and protocol. Given 06/09/2019 4:59 PM RIM ROLLER OPERATOR 10 mL Left Arm documented in this encounter Care Teams Research/Program Director Relationship Specialty Start Date End Date Julio César Briseno MD PCP - General 10/01/16 Eren Cr MD Referring Physician Medical Oncology 11/25/18 Yohana Bwoen MD Radiation Oncologist Radiation Oncology 11/25/18 documented as of this encounter
--- OUTSIDE RECORDS SUMMARY | 2024-06-26 02:18 | XMS_ITS | Encounter Summary ---
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) Procedures CT Chest Abdomen Pelvis W Contrast Eren Cr MD [address] [place] [address] Phone: tel: fax: [address] [address] Referral ID Status Reason Start Date Expiration Date Visits Re quested Visits Authorized [id number] Closed 06/01/2019 12/10/2020 1 1 DING RENTAL MANAGER Encounter Details Date Type Department Care Team (Late st Contact Info) Description 06/01/2019 11:45 AM BUILDING RENTAL MANAGER Office Visit [facility] Oncology [facility] 7th [place] [address] [place] [address] Eren Cr MD [address] [facility] [address] [place] [address] Neuro-endocrine carcinoma (CMS/HCC) (Primary Dx); Malignant neoplasm metastatic to liver (CMS/HCC) Social History Tobacco Use Types Packs/Day Years Used Date Smoking Tobacco: Never Smokeless Tobacco: Never Alcohol Use Standard Drinks/Week Comments Yes 1 (1 standard drink = 0.6 oz pur e alcohol) Comments No Sex and Gender Information Value Date Recorded Sex Assigned at Not on file Legal Sex Female 2:41 PM BUILDING RENTAL MANAGER Gender Identity Not on file Sexual Orientation Straight 02/19/2021 9: 29 AM CDT Occupation Industry Job Start Date Job End Date retired Not on file Not on file Not on file documented as of this encounter Last Filed Vital Signs Vital Sign Reading Time Taken Comments Blood Pressure 117/73 06/01/2019 12:15 PM BUILDING RENTAL MANAGER Pulse 86 06/01/2019 12:15 PM BUILDING RENTAL MANAGER Temperature 36.8 ??C (98.2 ??F) 06/01/2019 1 2:15 PM BUILDING RENTAL MANAGER Respiratory Rate 18 06/01/2019 12:1 5 PM BUILDING RENTAL MANAGER Oxygen Saturation 98% 06/01/2019 12: 15 PM BUILDING RENTAL MANAGER Inhaled Oxygen Concentration - - Weight 75.7 kg (166 lb 12.8 oz) 019 12:15 PM BUILDING RENTAL MANAGER Height - - Body Mass Index 29.55 05/14/2019 2:48 PM BUILDING RENTAL MANAGER documented in this encounter Progress Notes [...] DAILY NEEDED, Disp: , Rfl: ??? coenzyme [id number] E (CO Q-10, WITH VIT E,) 100-5 [...] interim with any symptoms, questions, or concerns. DING RENTAL MANAGER documented in this encounter Plan of Treatment Not on file documented as of this encounter Results * (ABNORMAL) CBC with auto differential (07/20/2019 10:52 AM BUILDING RENTAL MANAGER) WBC 3.7(L) 3.8 - 9.8 K/cumm [facility] Comment:Testing performed by : [facility], [address] [place] [phone] Hgb 13.0 12.1 - 15.1 g/dL [facility] Comment:Testing performed by : [facility], [address] [place] [phone] Hct 37.7 36.1 - 44.3 % [facility] Comment:Testing performed by : [facility], [address] [place] [phone] Plt 100(L) 140 - 440 K/cumm [facility] Comment:Testing performed by : [address] [phone] MPV 7.5 6.8 - 10.4 fL [facility]ER[facility] Comment:Testing performed by : [address] [phone] RBC 4.28 3.90 - 5.00 M/cumm [facility] Comment:Testing performed by : [facility], [address] [place] [phone] MCV 88.1 80.0 - 97.6 fL [facility] Comment:Testing performed by : [facility], [address] [place] [phone] MCH 30.4 26.7 - 33.7 pg [facility]ON [facility] Comment:Testing performed by : [facility], [address] [place] [phone] MCHC 34.5 32.7 - 35.5 g/dL [facility] Comment:Testing performed by : [facility], [address] [place] [phone] RDW CV 14.0 11.8 - 14.6 % [facility] Comment:Testing performed by : [facility], [address] [place] [phone] NRBC abs 0.02(H) 0.00 - 0.01 K/cumm [facility] Comment:Testing performed by : [facility], [address] [place] [phone] Blood specimen (specimen) 07/20/2019 10:52 AM BUILDING RENTAL MANAGER 07/20/2019 10:55 AM BUILDING RENTAL MANAGER us Eren Cr MD LAB BLOOD ORDERABLES Final Re sult [facility] Department [place] [address] * (ABNORMAL) Chromogranin A (07/20/2019 10:49 AM BUILDING RENTAL MANAGER) Chromogranin A 234(H) <93 ng/mL [facility] Comment: Impaired renal or hepatic function or treatment with proton pump inhibitors may result in artifactual elevations of Chromogranin A. ADDITIONAL INFORMATION This test was developed and its performance characteristics determined by [facility] in a manner consistent with CLIA [...] absence of malignant disease. Test Performed by: [facility] [address] [place] [address] Mold Hoister: Immanuel Novak M.D. Ph.D.; IA# [id number] Blood specimen (specimen) 07/20/2019 10:49 AM BUILDING RENTAL MANAGER 07/20/2019 11:17 AM BUILDING RENTAL MANAGER us Eren Cr MD LAB BLOOD ORDERABLES Final Re sult [facility] Department [place] [address] * (ABNORMAL) Comprehensive metabolic panel (07/20/2019 10:49 AM BUILDING RENTAL MANAGER) Sodium 143 135 - 145 mmol/L [facility] Potassium, pl 4.9 3.3 - 4.9 mmol/L [facility] Chloride 110 97 - 110 mmol/L [facility] CO2 29 22 - 32 mmol/L [facility] Anion gap 4 2 - 15 mmol/L [facility] BUN 13 8 - 25 mg/dL [facility] Creatinine 0.89 0.60 - 1.10 mg/dL [facility] Glucose 109 70 - 199 mg/dL [facility] mg/dL [facility] Bilirubin, total 0.7 0.1 - 1.2 mg/dL [facility] Protein, pl 6.8 6.5 - 8.5 g/dL [facility] Albumin 4.1 3.5 - 5.0 g/dL [facility] Alk phos 78 40 - 130 Units/L [facility] ALT 18 7 - 45 Units/L [facility] AST 30 10 - 45 Units/L [facility] Blood specimen (specimen) 07/20/2019 10:49 AM BUILDING RENTAL MANAGER 07/20/2019 11:02 AM BUILDING RENTAL MANAGER us Eren Cr MD LAB BLOOD ORDERABLES Final Re sult [facility] Department [place] [address] * CT Chest Abdomen Pelvis W Contrast (06/09/2019 4:54 PM BUILDING RENTAL MANAGER) Anatomical Region Laterality Modality Body N/A Computed Tomogra phy 06/10/2019 7:15 AM BUILDING RENTAL MANAGER Impressions 06/10/2019 7:15 AM BUILDING RENTAL MANAGER 1. ??Stable disease primarily involving the peritoneum, omentum, and retroperitoneal lymph nodes as detailed. 2. ??Improving abdominal wall fluid and gas collection, now nearly completely resolved. Electronically signed by: Juan Selby M.D. Narrative 06/10/2019 7:15 AM BUILDING RENTAL MANAGER EXAMINATION: ??Computed tomography of the chest, abdomen [...] 07/20/2019 documented in this encounter Care Teams Computer Repair Engineer Relationship Specialty Start Date End Date Julio César Briseno MD PCP - General 10/01/16 Eren Cr MD Referring Physician Medical Oncology 11/25/18 Yohana Bowen MD Radiation Oncologist Radiation Oncology 11/25/18 documented as of this encounter
--- OUTSIDE RECORDS SUMMARY | 2024-06-26 02:18 | XMS_ITS | Encounter Summary ---
Author Organization [facility] Address [address] [place] [address] Phone Care Team Providers Care Arrow Point Attacher Name Role Phone Jluio César Briseno MD Primary Care Provider [phone] Eren Cr MD Unavailable [phone] Yohana Bowen MD Unavailable Reason for Visit * Auth/Cert Specialty Diagnoses / Procedures Referred By Evelyne t Referred To Contact Referral ID Status Reason Start Date Expiration Date Visits Re quested Visits Authorized [id number] 1 1 Encounter Details Date Type Department Care Team (Late st Contact Info) Description 05/13/2019 12:00 PM FABRIC NORMALIZER Home Care Visit [facility] [place] [address] [address] [place] [address] Babs Rose LPN SN HOME VISIT Social History Tobacco Use Types Packs/Day Years Used Date Smoking Tobacco: Never Smokeless Tobacco: Never Alcohol Use Standard Drinks/Week Comments Yes 1 (1 standard drink = 0.6 oz pur e alcohol) Comments No Sex and Gender Information Value Date Recorded Sex Assigned at Not on file Legal Sex Female 2:41 PM FABRIC NORMALIZER Gender Identity Not on file Sexual Orientation [...] Comments Blood Pressure 124/78 05/13/2019 12:49 PM FABRIC NORMALIZER Pulse 84 05/13/2019 12:49 PM FABRIC NORMALIZER Temperature 36.8 ??C (98.2 ??F) 05/13/2019 12:[address] Respiratory Rate 18 05/13/2019 12:49 PM FABRIC NORMALIZER Oxygen Saturation 99% 05/13/2019 12:49 PM FABRIC NORMALIZER Inhaled Oxygen Concentration - - Weight - [...] Status Goals Interve ntions Homebound Status Disciplines: Shelter, Occupational Therapy Patient's homebound status 04/26/2019 Active 1 goal linked to scheduled/docume nted intervention 1 goal intervention scheduled/documen omar in this visit Monitor patient's vital signs every home health visit Disciplines: Shelter, Occupational Therapy Monitor patient's vital signs every home health visit. 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 04/26/2019 Active 1 goal linked to scheduled/docume nted intervention 2 goal interventions scheduled/documen omar in this visit Wound Risk of Infection Disciplines: Shelter Risk of infections related to wounds 04/26/2019 Active 1 goal linked to scheduled/docume nted intervention 1 goal intervention scheduled/documen omar in this visit Wound Education and Management Disciplines: Shelter Deficiency of cognitive information related to wound care 04/26/2019 Active 1 goal linked to scheduled/docume nted intervention 1 goal intervention scheduled/documen omar in this visit Wound Care Disciplines: Shelter Wound care needed 05/06/2019 Active 1 goal [...] visit during episode of care Description: Home financial coordinator to measure vital signs during every [...] understanding. Negative pressure wound therapy Description: Device: SPD Control SystemsI activac Skilled nurse to perform NPWT dressing [...] Problem:Wound Care Goal:Progression towards healing Completed Device: Newsy activac Skilled nurse to perform NPWT dressing [...] t documented in this encounter Care Teams Arrow Point Attacher Relationship Specialty Start Date End Date Julio César Briseno MD PCP - General 10/01/16 Eren Cr MD Referring Physician Medical Oncology 11/25/18 Yohana Bowen MD Radiation Oncologist Radiation Oncology 11/25/18 documented as of this encounter
--- OUTSIDE RECORDS SUMMARY | 2024-06-26 02:18 | XMS_ITS | Encounter Summary ---
Author Organization [facility] Address [address] [place] [address] Phone Care Team Providers Care Cotton Ginner Helper Name Role Phone Julio César Briseno MD Primary Care Provider [phone] Eren Cr MD Unavailable [phone] Yohana Bowen MD Unavailable Encounter Details Date Type Department Care Team (Late st Contact Info) Description 04/26/2019 Plan of Care Documentation [facility] [address] [place] [address] [address] [place] [id number] Social History Tobacco Use Types Packs/Day Years Used Date Smoking Tobacco: Never Smokeless Tobacco: Never Alcohol Use Standard Drinks/Week Comments Yes 1 (1 standard drink = 0.6 oz pur e alcohol) Comments No Sex and Gender Information Value Date Recorded Sex Assigned at Not on file Legal Sex Female 2:41 PM CARD TABLE ATTENDANT Gender Identity Not on file Sexual Orientation Straight 02/19/2021 9: 29 AM CDT Occupation Industry Job Start Date Job End Date retired Not on file Not on file Not on file documented as of this encounter Plan of Treatment Not on file documented as of this encounter Visit Diagnoses Not on filedocumented in this encounter Care Teams Cotton Ginner Helper Relationship Specialty Start Date End Date Julio César Briseno MD PCP - General 10/01/16 Eren Cr MD Referring Physician Medical Oncology 11/25/18 Yohana Bowen MD Radiation Oncologist Radiation Oncology 11/25/18 documented as of this encounter
--- OUTSIDE RECORDS SUMMARY | 2024-06-26 02:19 | XMS_ITS | Encounter Summary ---
Author Organization 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 [employer] Name Role Phone Julio César Briseno MD Primary Care Provider Eren Cr MD Unavailable [phone] Yohana Bowen MD Unavailable Encounter Details Date Type Department Care Team (Latest Contact Info) Description 04/12/2019 12:52 AM CDT - 04/24/2019 5:15 PM CDT Hospital Encounter [facility] [address] [place] [address] Woodrow Cerna MD [address] [facility] [id number] [place] [address] Greyson Reeves MD [address] [facility] [id number] [place] [address] Large bowel obstruction (CMS/HCC) (Primary Dx); Acute [...] file 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 An NGT was placed to suction, a CBC/CMP/lactic acid were obtained that were within normal limits, and a UA was taken that was positive for WBCs but negative for nitrites. She was transferred to [facility] for a high level of care. [...] removed 04/17: K 8.1, repeat 3.5. D/c BOTTOM BLEACHER. POPM, 1 unit of PRBC's for 6.9/21.0, clear liquids, EKG, dc siebel solution architect,POPM, TUMS, Vit D 04/18: D/c epidural. Restart [...] prophylaxis Endocrine follow-up - patient discharged on [address]2694F Vitamin D Test Results Pending at Discharge: [...] Service Line: Home Health Primary disciplines requested: Shelter Home Health Services: Wound/ Ostomy Care Physician [...] does not heal in 1-[address] [facility] Home Health You should be contacted [...] E) 100-5 mg-unit capsule Generic drug: coenzyme F16-dfncdqz E fluticasone propionate 50 mcg/actuation nasal spray [...] 05/28/2019 1:30 PM Greyson Reeves MD C/R [facility] 06/10/2019 7:00 AM Yohana Bowen MD CAM Rad Onc [facility] CAM 06/10/2019 4:00 PM POD 8 CAM ONC INF CAM7 [facility] ON[facility] INF 06/16/2019 1:00 PM Oksana Rivas NP ONC CAM 13C OB Outpatient Follow-Up: Future Appointments Date Time Provider Department Center 05/28/2019 1:30 PM Greyson Reeves MD C/R [facility] 06/10/2019 7:00 AM Yohana Bowen MD CAM Rad Onc [facility] CAM 06/10/2019 4:00 PM POD 8 CAM ONC INF CAM7 [facility] ON[facility] INF 06/16/2019 1:00 PM Oksana Rivas NP ONC CAM 13C OB Cosigned by Greyson Reeves MD at 04/24/2019 2:17 PM CDT documented in this encounter Discharge Instructions * Discharge Instr - Other Orders* Priscilla Aguilar RN - 04/15/2019 1:[address] 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 Ca on presentation to [facility] 8.2; following surgical procedure, Ca acutely [...] Agency Information Home Care Agency Type #1: Shelter Home Care Agency Name [facility] Home Care Agency Home Care Agency Contact Spoken to Yenny [facility] Home Care Agency Used? Not Needed Discharge Additional Assistance Does the patient need discharge transport arranged? No Patient to discharge to home today with family providing transportation. [facility] will follow for ostomy care. * Janelle [...] Inpatient Follow Up 04/21/2019 La Schwarz Sheldon [id number] Julio César Briseno MD Admit Date: 04/12/2019 [...] 120mg SQ. Ca on presentation to [facility] 8.2; following surgical procedure, Ca acutely [...] following modifications:: . She takes vitamin D3 01926 international units daily and has been on [...] Inpatient Follow Up 04/20/2019 La Schwarz Sheldon [id number] Julio César Briseno MD Admit Date: 04/12/2019 [...] 120mg SQ. Ca on presentation to [facility] 8.2; following surgical procedure, Ca acutely [...] > 5 YEARS N/A 02/17/2019 ? ? AR REMOVAL OF TONSILS,<12 Y/O [...] Adult Diet Regular Diet effective now Question: ([facility]) Diet type Answer: Regular 04/18/19 0747 [...] at baseline. Mariusz Trejo MS, RD, LDN [phone] * Janelle Jacques MD - 04/20/2019 5:29 [...] min Patient Spiritual Assessment Spirituality Assessed Yes Christianity Affiliation Jainism Active in Religious Yes Spiritual Needs Communion Clinical Encounter Type Visited With Patient Response Type Continuing visit Routine Visit Follow-up Continue Visiting Yes Reason for visit Christianity needs Referral From Nurse Sacramental Encounters Communion Patient wants communion Communion Given Indicator Yes Outcomes and Interventions Outcomes Minnie affirmation;Sense of peace Interventions Prayer;Active listening;Offer spiritual/restoration support * Neto Moss MD - 04/19/2019 [...] M.D. Resident, Pain Management, Department of Anesthesiology [facility], [facility] 04/18/2019 1:19 PM Cosigned [...] PM Result Value Ref Range Date Notified [id number] Time Notified 1948 TestName Potassium Plas Called/Read [...] to liver, bone metastasis, hypercholesterolemia, hypertension,??admitted to [facility] on 04/17/19 for evaluation and management [...] mL/hr and remove in few hours) IV BOTTOM BLEACHER: [] Hydromorphone No basal rate/demand dose__0.1___mg__10___min lock [...] M.D. Resident, Pain Management, Department of Anesthesiology [facility] 04/18/2019 8:09 AM Cosigned [...] to liver, bone metastasis, hypercholesterolemia, hypertension,??admitted to [facility] on 04/17/19 for evaluation and management [...] reports that her APAP, duloxetine, gabapentin, hydromorphone BOTTOM BLEACHER, and epidural provide relief. Denies side effects from her medications. ?? In past 24 hours, advanced to CLD, NGT removed, masterson removed, voiding spontaneously, passing flatus and stool, ambulating. Current medication regimen: APAP 1000 mg PT Q8H MAUREEN, gabapentin 200 mg PT BID, duloxetine 30 mg QD,bupivicaine at 6 ml/hr, hydromorphone BOTTOM BLEACHER. In past 24 hours, received hydromorphone 1 [...] hold enoxaparin PM dose on 04/17/19 IV BOTTOM BLEACHER: [] Hydromorphone No basal rate/demand dose__0.1___mg__10___min lock out ___0.6___mg hourly max dose. [x] Discontinue hydromorphone BOTTOM BLEACHER, transition to oxycodone 5 mg Q4H PRN (first line) and hydromorphone 0.2 mg Q4H PRN (second line) Systemic Analgesics: [x] Please call if further pain management questions arise. [x] Plan of care done in collaboration with APS attending, DR. Gonzalez. [x] Plan of care discussed with Primary Service. Shruti Ralph M.D. Resident, Pain Management, Department of Anesthesiology [facility] 04/17/2019 8:35 AM Cosigned [...] Consult Progress Note 04/17/2019 La Schwarz Sheldon [id number] Julio César Briseno MD CONSULTING PROVIDER: Mj [...] > 5 YEARS N/A 02/17/2019 ? ? AR REMOVAL OF TONSILS,<12 Y/O [...] EXTERNALLY TO ABDOMEN TWICE DAILY NEEDED coenzyme E96-wejytmd E (CO Q-10, WITH VIT E,) 100-5 [...] flush 0.5-20 mL 0.5-20 mL intra-catheter Q8H [facility] Laura Lopes MD 10 mL at 04/14/19 0532 ??? sodium chloride 0.9% flush 0.5-20 mL 0.5-20 mL intra-catheter PRN Laura Lopes MD 10 mLat 04/14/19 2320 ??? sodium chloride 0.9% flush 0.5-20 mL 0.5-20 mL intra-catheter Q8H [facility] Laura Lopes MD 10 mL [...] 120mg SQ. Ca on presentation to [facility] 8.2; following surgical procedure, Ca acutely [...] MD PGY-1 Urology - covering CRS P: [id number] Cosigned by Greyson Reeves MD at 04/17/2019 [...] 120mg SQ. Ca on presentation to [facility] 8.2; following surgical procedure, Ca acutely [...] Epidural/Local Anesthetic Infusion: [x] No Change IV BOTTOM BLEACHER: [x] Hydromorphone No basal rate/demand dose__0.1___mg__10___min lock [...] MD PGY-1 Urology - covering CRS P: [id number] Cosigned by Greyson Reeves MD at 04/16/2019 [...] PM Result Value Ref Range Product code F2451N46 Unit Number [id number] Product Blood Type APOS Dispense Status RETURNED Product code F0285G42 Unit Number [id number] Product Blood Type APOS Dispense Status RETURNED [...] MD PGY-1 Urology - covering CRS P: [id number] Cosigned by Greyson Reeves MD at 04/15/2019 [...] liver, bone metastasis, hypercholesterolemia, hypertension, admitted to [facility] on 04/17/19 for evaluation and management [...] been constant. Patient reports that her hydromorphone BOTTOM BLEACHER provides partial relief. Patient reports that her current epidural is not as effective as an epidural that she previously had (however, her epidural rate was decreased to 3 mL/hr due to hypotension). Denies side effects from hermedications. NPO. Receiving medications PT and IV. Current medication regimen: APAP 1000 mg PT Q8H MAUREEN, gabapentin 200 mg PT BID, bupivicaine at 3 ml/hr, hydromorphone BOTTOM BLEACHER. VS notable for post-operative tachycardia and hypotension [...] Analgesic Catheter out, tip intact ?? IV BOTTOM BLEACHER: ?? [x] Hydromorphone [] Morphine [] Fentanyl No basal rate/demand dose__0.1 mg 10___min lock out __0.6____mg hourly max dose. ?? [] Discontinue BOTTOM BLEACHER [] IV BOTTOM BLEACHER demand amount to []increase____mg []decrease____mg with____ minute [...] M.D. Resident, Pain Management, Department of Anesthesiology [facility] 04/15/2019 9:55 AM Cosigned [...] Consult Progress Note 04/15/2019 La Schwarz Sheldon [id number] Julio César Briseno MD CONSULTING PROVIDER: Mj [...] > 5 YEARS N/A 02/17/2019 ? ? AR REMOVAL OF TONSILS,<12 Y/O [...] EXTERNALLY TO ABDOMEN TWICE DAILY NEEDED coenzyme Z46-kyjyrwb E (CO Q-10, WITH VIT E,) 100-5 [...] flush 0.5-20 mL 0.5-20 mL intra-catheter Q8H [facility] Laura Lopes MD 10 mL at 04/14/19 0532 ??? sodium chloride 0.9% flush 0.5-20 mL 0.5-20 mL intra-catheter PRN Laura Lopes MD 10 mLat 04/14/19 2320 ??? sodium chloride 0.9% flush 0.5-20 mL 0.5-20 mL intra-catheter Q8H [facility] Laura Lopes MD 10 mL at 04/14/19 0531 ??? sodium chloride 0.9% flush 0.5-20 mL 0.5-20 mL intra-catheter PRN Laura Lopes MD ??? sodium chloride 0.9% flush 5-10 mL 5-10 mL intra-catheter Q12H [facility] Neto Moss MD 10 mL [...] 120mg SQ. Ca on presentation to [facility] 8.2; following surgical procedure, Ca acutely [...] min Patient Spiritual Assessment Spirituality Assessed Yes Christianity Affiliation Jainism Active in Religious Yes Clinical Encounter Type Visited With Patient [...] occasionally subsides. Patient reports that her hydromorphone BOTTOM BLEACHER provides partial relief. Patient reports that her current epidural is not as effective as an epidural that shepreviously had (however, her epidural rate was decreased to 3 mL/hr due to hypotension). Denies side effects from her medications. Current medication regimen: APAP 1000 mg PT Q8H [facility], gabapentin 200 mg PT BID, bupivicaine at 3 ml/hr, hydromorphone BOTTOM BLEACHER Laboratory studies notable for HH 10.1/30.2, plt [...] dose of anticoagulant received: enoxaparin 04/12/19 @ 8987 Epidural Analgesic Infusion: [x] Bupivacaine 0.1% mL/hour: [...] Analgesic Catheter out, tip intact ?? IV BOTTOM BLEACHER: ?? [x] Hydromorphone [] Morphine [] Fentanyl No basal rate/demand dose__0.1 mg 10___min lock out __0.6____mg hourly max dose. ?? [] Discontinue BOTTOM BLEACHER [] IV BOTTOM BLEACHER demand amount to []increase____mg []decrease____mg with____ minute [...] M.D. Resident, Pain Management, Department of Anesthesiology [facility], [facility] 04/14/2019 2:26 PM Cosigned by Aleksandra Gonzalez MD at 04/14/2019 3:13 PM CDT Associated attestation - Aleksandra Gonzalez MD - 04/14/2019 3:13 PM CDT I have seen and examined the patient on 04/14/19. I agree with the findings and plan of care as documented in the resident's/fellow's note. * Boris Wiley, Poncho Hopper MD - 04/14/2019 1:32 PM [...] PM Result Value Ref Range Product code O5104P62 Unit Number [id number] Product Blood Type APOS Dispense Status CROSSMATCHED Product code M7128R15 Unit Number [id number] Product Blood Type APOS Dispense Status CROSSMATCHED [...] MD PGY-1 Urology - covering CRS P: [id number] Cosigned by Greyson Reeves MD at 04/15/2019 8:16 AM CDT * Yovany Alvarez MD - 04/13/2019 11:29 PM CDT Post-Op Check Note La Schwarz Sheldon [id number] Pt returns from the OR 04/13/2019 s/p [...] CDT 04/13/19 0827 Referral Data Referral Source [employer] Referral Reason Discharge Planning County Information [facility] [place], [place] Patient Information Primary Caregiver Self Support System Spouse/Significant Other;Children Support system contact info (name, phone, availablity) , Alejo Chung ; daughter Caroline Chung Prior Level of Functioning Durable Medical Equipment None Living Arrangement House;Lives with someone Behavior Oriented Potential Discharge Needs Anticipated discharge level of care Return Home Communications Fiduciary Responsibility Patient/Designated decision maker was informed of [facility] fiduciary relationship as necessary Impression: Patient [...] Admit Source: Patient indicated she transferred from [facility] but that she had not been admitted [...] MD PGY-1 Urology - covering CRS P: [id number] Cosigned by Greyson Reeves MD at 04/13/2019 7:18 AM CDT Associated attestation - Greyson Reeves MD - 04/13/2019 7:18 AM CDT I have seen and examined the patient on 04/13/19. I agree with the findings and plan of care as documented in the resident's/fellow's note. documented in this encounter H&P Notes * aLura Lopes MD - 04/13/2019 1:02 PM CDT [...] Planning Preoperative Evaluation Record Inpatient Preoperative Evaluation ([facility]) Date: 04/13/19 Anesthesia Evaluation Procedure(s): EXPLORATORY [...] Hypertension + Hyperlipidemia Pertinent negatives: CAD ; CA ; valvular heart disease; atrial fibrillation; arrhythmia; [...] > 5 YEARS N/A 02/17/2019 ? ? AR REMOVAL OF TONSILS,<12 Y/O [...] a month -- -- Historical Provider, coenzyme R89-afvnlhu E (CO Q-10, WITH VIT E,) 100-5 [...] Urgent Care and was sent to the [facility] ED where a CT scan was performed that demonstrated a possible partial large bowel obstruction. An NGT was placed to suction, a CBC/CMP/lactic acid were obtained that were within normal limits, and a UA was taken that was positive for WBCs but negative for nitrites. She was transferred to [facility] for a high level of care. [...] > 5 YEARS N/A 02/17/2019 ? ? AR REMOVAL OF TONSILS,<12 Y/O [...] 4 gram packet clotrimazole-betamethasone (LOTRISONE) cream coenzyme P22-ftgybgz E (CO Q-10, WITH VIT E,) 100-5 [...] upload imaging - nominate OSH CT for [facility] radiology reading - obtain AM labs [...] locate and cannulate vein -CB Lot #: [id number] -CB Expiration Date: 02/05/20 -CB Trimmed Length [...] 02/18 followedby Octretotide who was admitted to [facility] after presenting with cramping abdominal pain, nausea, and em esis since Saturday of last week that progressively continued to worsen. She presented to [facility] where imaging was concerning for a colonic obstruction with a focal transition point at the level of the rectosigmoid junction with stable disease in the liver. She was transferred to [facility] for further care and underwent an [...] and has 4 children. She lives in [place] in [place]. She is currently retired FAMILY HISTORY: Her [...] she also underwent right colectomy in [facility] OR by Dr. Greyson Reeves. Biopsy [...] > 5 YEARS N/A 02/17/2019 ? ? AR REMOVAL OF TONSILS,<12 Y/O [...] a month at Unknown time ??? coenzyme X79-jsabyyk E (CO Q-10, WITH VIT E,) 100-5 [...] mg, 1,000 mg, feeding tube, Q8H [facility], Laura Lopes MD ??? bupivacaine preservative free [...] will arrange for follow up at discharge. [phone] Cosigned by Eren Cr Jr., MD at 04/14/2019 3:19 PM CDT Associated attestation - Eren Cr MD - 04/14/2019 3:19 PM CDT Images from the original note were not included. HYDROTHERAPIST Attestation La Chung : 1950 DATE OF VISIT: 04/14/19 I have seen and examined the patient on 04/14/2019 with the Nurse Practitioner and I have reviewed the HYDROTHERAPIST note and agree with the findings documented [...] PM Result Value Ref Range Product code X2808Q56 Unit Number [id number] Product Blood Type APOS Dispense Status CROSSMATCHED Product code Z1633B28 Unit Number [id number] Product Blood Type APOS Dispense Status CROSSMATCHED [...] the plan of care. Eren Cr MD Housekeeping Associate [facility] [employer] * Mj Chiu MD [...] bloody emesis, urinary symptoms. 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 An element of diverticulitis is not excluded, given that there are some adjacent diverticula. NGT was placed to suction and she was transferred to [facility] for further management. On admission to [place], patient was seen by GI with plans [...] from surgical procedure currently managed with Dilaudid BOTTOM BLEACHER. Past medical history: Past Medical History: Diagnosis [...] > 5 YEARS N/A 02/17/2019 ? ? AR REMOVAL OF TONSILS,<12 Y/O [...] EXTERNALLY TO ABDOMEN TWICE DAILY NEEDED coenzyme Q24-aobzyvs E (CO Q-10, WITH VIT E,) 100-5 [...] flush 0.5-20 mL 0.5-20 mL intra-catheter Q8H [facility] Laura Lopes MD 10 mL at 04/14/19 0532 ??? sodium chloride 0.9% flush 0.5-20 mL 0.5-20 mL intra-catheter PRN Laura Lopes MD ??? sodium chloride 0.9% flush 0.5-20 mL 0.5-20 mL intra-catheter Q8H [facility] Laura Lopes MD 10 mL [...] 120mg SQ. Ca on presentation to [facility] 8.2; following surgical procedure, Ca acutely [...] symptoms. Given her symptoms, she presented to [facility] ED where a CT scan was performed and demonstrated distended colon, a transition point identified near the distal descending/proximal sigmoid colon, near this location a spiculated hyperenhancing mesenteric lesion identified worrisome for mesenteric met with desmoplastic reaction. An element of diverticulitis is not excluded, given that there are some adjacent diverticula. NGT was placed to suction and the patietn was subsequently transferred to [facility] for further management. Of note, patient [...] > 5 YEARS N/A 02/17/2019 ? ? AR REMOVAL OF TONSILS,<12 Y/O [...] a month at Unknown time ??? coenzyme N28-svdcjbp E (CO Q-10, WITH VIT E,) 100-5 [...] file Gets together: Not on file Attends restoration service: Not on file Active member of [...] and the patietn was subsequently transferred to [facility] for further management. - continue NGT [...] via the central GI phone tree at [phone], option 3. From 5pm to 7:30am Saturday through Saturday, and from Saturday 5pm to Saturday 7:30am, the subscription clerk GI fellow covering the Biliary service can be reached at [phone]. Alex Hutton MD Gastroenterology Fellow Cosigned by [...] Pouch Supplies: at bedside Pouch Type: Coloplast Pearson Flex 2 piece Drainage: Not to gravity Excretions: Stool Gas Excretion Color: cr yellow Comments: 04/24/19 1030 Colostomy End RLQ Placement Date/Time: 04/13/19 1265 Colostomy Type: End Location: RLQ Stomal Appliance 1 piece;Convex;Intact Stoma Assessment Red;Round;Moist;Flush (viewed through pouch) Education: Education packet reviewed: with patient including pouch chagne process supplies provided, email sent of ostomy change per patient request, icare movies texted. Plan of care discussed with: RN Questions answered: Yes Wound/Ostomy will follow patient: yes Any questions or concerns please contact the Wound/Ostomy department at [phone] Pamela Elizabeth RN * Pamela Elizabeth RN [...] concerns please contact the Wound/Ostomy department at [phone] Pamela Elizabeth RN * Pamela Elizabeth RN [...] concerns please contact the Wound/Ostomy department at [phone] Pamela Elizabeth RN * Mayela Hathaway RN [...] concerns please contact the Wound/Ostomy department at [phone] Pamela Elizabeth RN * Pamela Elizabeth RN [...] concerns please contact the Wound/Ostomy department at [phone] Pamela Elizabeth RN * Pamela Elizabeth RN [...] concerns please contact the Wound/Ostomy department at [phone] Pamela Elizabeth RN documented in this encounter Miscellaneous Notes * Plan of Care - Yenny Villegas RN - 04/24/2019 4:07 PM CDT Referral received for SN. HH services arranged through [facility]- [place] office ([phone]). [facility] Critical Care Physician contact numbers; [phone] or [phone]. * Plan of Care - Nichole Nash [...] 120mg SQ. Ca on presentation to [facility] 8.2; following surgical procedure, Ca acutely [...] Endocrine Inpatient Follow Up 04/24/2019 La Chung [id number] Julio César Briseno MD Admit Date: 04/12/2019 [...] CDT Endocrine Diabetes Inpatient Follow Up? 04/23/2019?La Chung?[id number]?Greyson Reeves MD ?? Admit Date:??04/12/2019?Length of Stay:??11 [...] Endocrine Diabetes Inpatient Follow Up? 04/22/2019?La Schwarz Sheldon?[id number]? Greyson Reeves MD ?? Admit Date:??04/12/2019?Length of [...] chief complaint of abdominal pain and vomiting.?? Referrals:??[facility] to follow Support:??, Alejo and two [...] 120mg SQ. Ca on presentation to [facility] 8.2; following surgical procedure, Ca acutely [...] Diabetes Inpatient Follow Up 04/21/2019 La Chung [id number] Julio César Briseno MD Admit Date: 04/12/2019 [...] Follow Up ?? 04/20/2019 La Kerry Chung [id number] Julio César Briseno MD ?? Admit Date: [...] Inpatient Follow Up 04/20/2019 La Schwarz Sheldon [id number] Julio César Briseno MD Admit Date: 04/12/2019 [...] removed 04/17: K 8.1, repeat 3.5. D/c BOTTOM BLEACHER. POPM, 1 unit of PRBC's for 6.9/21.0, clear liquids, EKG, dc siebel solution architect,POPM, TUMS, Vit D 04/18: D/c epidural. Restart Lovenox. BMP Q12h. Restart statin+BP meds. SLIV. 04/19: Ditropan TID for OAB. KCl 60mEq 04/20: KCl 40mEq. Pt refusing rehab, pouching issues * Plan of Care - Priscilla Aguilar RN - 04/20/2019 1:12 PM CDT Report per DCAM:??ostomy teaching Impression:??Patient is a??68 y.o.??female??with chief complaint of abdominal pain and vomiting.?? Referrals:??[facility] HH to follow Support:??, Alejo and [...] weekend assistance, please call the on-call weekend case coordinator at #[phone]. Thank you! * Plan of Care - [...] pain control with the use of her BOTTOM BLEACHER. Patient will get labs draws regularly. * [...] Bette Salazar RN, BSN, MS, CCDS Clinical Pricing/Signage Team Member [phone] * Plan of Care - Priscilla Aguilar [...] 120mg SQ. Ca on presentation to [facility] 8.2; following surgical procedure, Ca acutely [...] is being adequately controlled. Patient has a BOTTOM BLEACHER and epidural. Patient is up ad mayela [...] times, advance diet Summary: Patient educated on BOTTOM BLEACHER and button pushing. She has ambulated in [...] will continue to follow. Jessica Rice LCSW [phone] * Plan of Care - Kathy Zuleta [...] into 80's while sleeping, pain controlled with BOTTOM BLEACHER and epidural, green output from NG tube, [...] CDT * Plan of Care - Priscilla gAuilar RN - 04/15/2019 1:08 PM CDT Report per DCAM: NG tube in place, following up on Ca Impression: Patient is a??68 y.o.??female??with chief complaint of abdominal pain and vomiting. Referrals: referral sent through [facility] to [facility] HH Support: , Alejo and two [...] her pain has been controlled with the BOTTOM BLEACHER pump.The patient ambulated in the room and [...] 120mg SQ. Ca on presentation to [facility] 8.2; following surgical procedure, Ca acutely [...] moderate assistance, NG intact with green output, BOTTOM BLEACHER and epidural for pain, drainage shadowing from surgical incision-dressing still intact, will continue to monitor. * Op Note - Greyson Reeves MD - 04/13/2019 4:46 PM CDT SURGEON Greyson Reeves MD FIRST SILVERWARE WASHER Laura Walker PREOPERATIVE DIAGNOSIS Large bowel obstruction [...] Anesthesiologist: Shawn Green MD; Thong Abraham MD LAND SURVEYOR MANAGER: Dm Richardson CRNA; Janeen Weston CRNA Chain Link Fence Installer: Adelita Barba RN; Thais Julio RN; Susana Benito RN Chain Link Fence Installer Relief: Bebe Claire RN Scrub Relief: Lucita [...] condition. Epidural catheter Perifix with product code [id number] ref [id number] is MRI compatible Luis M Bright MD [...] CDT Large bowel obstruction (CMS/HCC) Case Notes [id number] EXPLORATORY LAPAROTOMY 04/13/2019 3:23 PM CDT Large bowel obstruction (CMS/HCC) Case Notes [id number] APTT Timed 04/12/2019 9:48 PM CDT PROTIME-INR [...] ionized (04/24/2019 5:42 AM CDT) Pathologist [facility] [place] Calcium, Ionized 5.15(H) 4.50 - 5.10 mg/dL [facility] Blood specimen (specimen) 04/24/2019 5:42 AM CDT 04/24/2019 6:14 AM CDT us Greyson Reeves MD LAB BLOOD ORDERABLES Final R esult [facility] [address] [place] [address] * Basic metabolic panel (04/23/2019 8:19 PM CDT) Pathologist [facility] [place] Sodium 136 135 - 145 mmol/L [facility] Potassium, pl 3.9 3.3 - 4.9 mmol/L [facility] Chloride 100 97 - 110 mmol/L [facility] CO2 29 22 - 32 mmol/L [facility] Anion gap 7 2 - 15 mmol/L [facility] BUN 8 8 - 25 mg/dL [facility] Creatinine 0.76 0.60 - 1.10 mg/dL [facility] Glucose 145 70 - 199 mg/dL [facility] Comment: Interpretive Data Fasting glucose >/= 126 [...] 2017. Calcium 9.4 8.5 - 10.3 mg/dL [facility] Blood specimen (specimen) 04/23/2019 8:19 PM CDT 04/23/2019 8:49 PM CDT Greyson Reeves MD LAB BLOOD ORDERABLES Final R esult Performing Organization Address [facility] de Phone Number [address] [address] * Calcium, ionized (04/23/2019 8:19 PM CDT) Calcium, Ionized 4.92 4.50 - 5.10 mg/dL [facility] Blood specimen (specimen) 04/23/2019 8:19 PM CDT 04/23/2019 8:57 PM CDT Greyson Reeves MD LAB BLOOD ORDERABLES Final R esult Performing Organization Address [facility] de Phone Number [address] [address] * Calcium, ionized (04/23/2019 5:52 AM CDT) Calcium, Ionized 4.86 4.50 - 5.10 mg/dL [facility] Blood specimen (specimen) 04/23/2019 5:52 AM CDT 04/23/2019 6:43 AM CDT Greyson Reeves MD LAB BLOOD ORDERABLES Final R esult Performing Organization Address [facility] de Phone Number [address] [place] [address] * (ABNORMAL) Basic metabolic panel (04/22/2019 9:59 PM CDT) Sodium 135 135 - 145 mmol/L [facility] Potassium, pl 3.7 3.3 - 4.9 mmol/L [facility] Chloride 99 97 - 110 mmol/L [facility] CO2 28 22 - 32 mmol/L [facility] Anion gap 8 2 - 15 mmol/L [facility] BUN 6(L) 8 - 25 mg/dL [facility] Creatinine 0.79 0.60 - 1.10 mg/dL [facility] Glucose 127 70 - 199 mg/dL [facility] Comment: Interpretive Data Fasting glucose >/= 126 [...] 2017. Calcium 9.2 8.5 - 10.3 mg/dL [facility] Blood specimen (specimen) 04/22/2019 9:59 PM CDT 04/22/2019 10:54 PM CDT us Greyson Reeves MD LAB BLOOD ORDERABLES Final R esult [facility] [address] [place] [address] * (ABNORMAL) Calcium, ionized (04/22/2019 6:27 PM CDT) Pathologist [facility] [place] Calcium, Ionized 5.11(H) 4.50 - 5.10 mg/dL [facility] Blood specimen (specimen) 04/22/2019 6:27 PM CDT 04/22/2019 7:29 PM CDT Greyson Reeves MD LAB BLOOD ORDERABLES Final R esult Performing Organization Address City/[facility]/ZIP Co de Phone Number JASON [facility] [address] [place] [address] * Calcium, ionized (04/22/2019 5:56 AM CDT) Calcium, Ionized 5.04 4.50 - 5.10 mg/dL [facility] Blood specimen (specimen) 04/22/2019 5:56 AM CDT 04/22/2019 6:13 AM CDT Greyson Reeves MD LAB BLOOD ORDERABLES Final R [facility], [facility] Performing Organization Address [facility] Co de Phone Number [facility] [address] [address] * (ABNORMAL) Basic metabolic panel (04/21/2019 10:10 PM CDT) Pathologist [facility] [place] Sodium 139 135 - 145 mmol/L [facility] Potassium, pl 3.4 3.3 - 4.9 mmol/L [facility] Chloride 103 97 - 110 mmol/L [facility] CO2 30 22 - 32 mmol/L [facility] Anion gap 6 2 - 15 mmol/L [facility] BUN 5(L) 8 - 25 mg/dL [facility] Creatinine 0.70 0.60 - 1.10 mg/dL [facility] Glucose 142 70 - 199 mg/dL [facility] Comment: Interpretive Data Fasting glucose >/= 126 [...] 2017. Calcium 9.3 8.5 - 10.3 mg/dL [facility] Blood specimen (specimen) 04/21/2019 10:10 PM CDT 04/21/2019 10:41 PM CDT Greyson Reeves MD LAB BLOOD ORDERABLES Final R esult Performing Organization Address [facility] Co de Phone Number [address] [address] * Calcium, ionized (04/21/2019 6:18 PM CDT) Calcium, Ionized 5.00 4.50 - 5.10 mg/dL [facility] Blood specimen (specimen) 04/21/2019 6:18 PM CDT 04/21/2019 6:50 PM CDT Greyson Reeves MD LAB BLOOD ORDERABLES Final R esult Performing Organization Address [facility] de Phone Number [address] [address] * Calcium, ionized (04/21/2019 5:48 AM CDT) Calcium, Ionized 4.95 4.50 - 5.10 mg/dL [facility] Blood specimen (specimen) 04/21/2019 5:48 AM CDT 04/21/2019 6:24 AM CDT Greyson Reeves MD LAB BLOOD ORDERABLES Final R esult Performing Organization Address [facility] Co de Phone Number [address] [address] * Vitamin D 25 hydroxy (04/20/2019 10:22 PM CDT) Vitamin D 25-OH 34 30 - 80 ng/mL [facility] Blood specimen (specimen) 04/20/2019 10:22 PM CDT 04/20/2019 11:31 PM CDT Greyson Reeves MD LAB BLOOD ORDERABLES Final R esult [place] [address] * (ABNORMAL) Basic metabolic panel (04/20/2019 10:22 PM CDT) Sodium 140 135 - 145 mmol/L [facility] Potassium, pl 3.1(L) 3.3 - 4.9 mmol/L [facility] Chloride 104 97 - 110 mmol/L [facility] CO2 28 22 - 32 mmol/L [facility] Anion gap 8 2 - 15 mmol/L [facility] BUN 6(L) 8 - 25 mg/dL [facility] Creatinine 0.66 0.60 - 1.10 mg/dL [facility] Glucose 128 70 - 199 mg/dL [facility] Comment: Interpretive Data Fasting glucose >/= 126 [...] 2017. Calcium 9.2 8.5 - 10.3 mg/dL [facility] Blood specimen (specimen) 04/20/2019 10:22 PM CDT 04/20/2019 11:31 PM CDT Greyson Reeves MD LAB BLOOD ORDERABLES Final R esult [place] [address] * Phosphorus (04/20/2019 10:22 PM CDT) Phosphorus, pl 2.6 2.3 - 4.5 mg/dL [facility] Blood specimen (specimen) 04/20/2019 10:22 PM CDT 04/20/2019 11:31 PM CDT Greyson Reeves MD LAB BLOOD ORDERABLES Final R esult Performing Organization Address [facility] Co de Phone Number [address] [address] * Magnesium (04/20/2019 10:22 PM CDT) Magnesium 1.8 1.4 - 2.5 mg/dL [facility] Blood specimen (specimen) 04/20/2019 10:22 PM CDT 04/20/2019 11:31 PM CDT Greyson Reeves MD LAB BLOOD ORDERABLES [facility] Performing Organization Address [facility] de Phone Number [address] [address] * (ABNORMAL) Potassium, whole blood (04/20/2019 5:39 PM CDT) Pathologist [facility] [place] Potassium, bld 3.2(L) 3.3 - 4.9 mmol/L [facility] Blood specimen (specimen) 04/20/2019 5:39 PM CDT 04/20/2019 6:13 PM CDT Greyson Reeves MD LAB BLOOD ORDERABLES Final R esult Performing Organization Address [facility] de Phone Number [address] [address] * (ABNORMAL) Calcium, ionized (04/20/2019 5:39 PM CDT) Calcium, Ionized 5.16(H) 4.50 - 5.10 mg/dL [facility] Blood specimen (specimen) 04/20/2019 5:39 PM CDT 04/20/2019 6:13 PM CDT Greyson Reeves MD LAB BLOOD ORDERABLES Final R esult Performing Organization Address City/[facility]/ZIP Co de Phone Number [facility] [address] [place] [address] * (ABNORMAL) Albumin (04/20/2019 6:07 AM CDT) Albumin 2.9(L) 3.5 - 5.0 g/dL [facility] Blood specimen (specimen) 04/20/2019 6:07 AM CDT 04/20/2019 6:44 AM CDT Greyson Reeves MD LAB BLOOD ORDERABLES Final R esult Performing Organization Address [facility] Co de Phone Number [facility] [address] [place] [address] * (ABNORMAL) Basic metabolic panel (04/20/2019 6:07 AM CDT) Pathologist [facility] [place] Sodium 141 135 - 145 mmol/L [facility] Potassium, pl 3.4 3.3 - 4.9 mmol/L [facility] Chloride 105 97 - 110 mmol/L [facility] CO2 29 22 - 32 mmol/L [facility] Anion gap 7 2 - 15 mmol/L [facility] BUN 4(L) 8 - 25 mg/dL [facility] Creatinine 0.60 0.60 - 1.10 mg/dL [facility] Glucose 110 70 - 199 mg/dL [facility] Comment: Interpretive Data Fasting glucose >/= 126 [...] 2017. Calcium 8.9 8.5 - 10.3 mg/dL [facility] Blood specimen (specimen) 04/20/2019 6:07 AM CDT 04/20/2019 6:44 AM CDT Greyson Reeves MD LAB BLOOD ORDERABLES Final R esult Performing Organization Address [facility] Co de Phone Number [address] [address] * Calcium, ionized (04/20/2019 6:07 AM CDT) [facility] Calcium, Ionized 4.93 4.50 - 5.10 mg/dL [facility] Blood specimen (specimen) 04/20/2019 6:07 AM CDT 04/20/2019 6:44 AM CDT Greyson Reeves MD LAB BLOOD ORDERABLES Final R esult Performing Organization Address [facility] de Phone Number [address] [address] * (ABNORMAL) CBC without differential (04/19/2019 10:10 PM CDT) [facility] WBC 5.6 3.8 - 9.9 K/cumm [facility] Hgb 10.0(L) 11.9 - 15.5 g/dL [facility] Hct 29.5(L) 35.6 - 45.5 % [facility] Plt 137(L) 150 - 400 K/cumm [facility] MPV 10.9 9.1 - 12.3 fL [facility] RBC 3.35(L) 3.90 - 5.20 M/cumm [facility] MCV 88.1 81.3 - 96.4 fL [facility] MCH 29.9 27.1 - 33.3 pg [facility] MCHC 33.9 32.3 - 35.7 g/dL [facility] RDW CV 15.3(H) 11.1 - 14.9 % [facility] RDW SD 49.1(H) 35.7 - 48.1 fL [facility] NRBC abs 0.00 0.00 - 0.01 K/cumm [facility] Blood specimen (specimen) 04/19/2019 10:10 PM CDT 04/19/2019 10:44 PM CDT Greyson Reeves MD LAB BLOOD ORDERABLES Final R esult Performing Organization Address [facility] de Phone Number [address] [address] * Phosphorus (04/19/2019 10:10 PM CDT) Pathologist [facility] [place] Phosphorus, pl 2.4 2.3 - 4.5 mg/dL [facility] Blood specimen (specimen) 04/19/2019 10:10 PM CDT 04/19/2019 10:44 PM CDT Greyson Reeves MD LAB BLOOD ORDERABLES Final R esult Performing Organization Address [facility] de Phone Number [address] [address] * Magnesium (04/19/2019 10:10 PM CDT) [facility] Magnesium 1.7 1.4 - 2.5 mg/dL [facility] Blood specimen (specimen) 04/19/2019 10:10 PM CDT 04/19/2019 10:44 PM CDT Greyson Reeves MD LAB BLOOD ORDERABLES Final [facility] Performing Organization Address [facility] de Phone Number [address] [address] * (ABNORMAL) Basic metabolic panel (04/19/2019 6:14 PM CDT) Pathologist [facility] [place] Sodium 138 135 - 145 mmol/L [facility] Potassium, pl 2.9(L) 3.3 - 4.9 mmol/L [facility] Chloride 102 97 - 110 mmol/L [facility] CO2 28 22 - 32 mmol/L [facility] Anion gap 8 2 - 15 mmol/L [facility] BUN 4(L) 8 - 25 mg/dL [facility] Creatinine 0.56(L) 0.60 - 1.10 mg/dL [facility] Glucose 106 70 - 199 mg/dL [facility] Comment: Interpretive Data Fasting glucose >/= 126 [...] 2017. Calcium 9.4 8.5 - 10.3 mg/dL [facility] Blood specimen (specimen) 04/19/2019 6:14 PM CDT 04/19/2019 6:49 PM CDT Greyson Reeves MD LAB BLOOD ORDERABLES Final R esult Performing Organization Address [facility] de Phone Number [address] [address] * Calcium, ionized (04/19/2019 6:14 PM CDT) Calcium, Ionized 5.04 4.50 - 5.10 mg/dL [facility] Blood specimen (specimen) 04/19/2019 6:14 PM CDT 04/19/2019 6:49 PM CDT Greyson Reeves MD LAB BLOOD ORDERABLES Final R esult Performing Organization Address [facility] Co de Phone Number [address] [address] * (ABNORMAL) Basic metabolic panel (04/19/2019 6:37 AM CDT) Sodium 143 135 - 145 mmol/L [facility] Potassium, pl 3.4 3.3 - 4.9 mmol/L [facility] Chloride 106 97 - 110 mmol/L [facility] CO2 28 22 - 32 mmol/L [facility] Anion gap 9 2 - 15 mmol/L [facility] BUN 2(L) 8 - 25 mg/dL [facility] Creatinine 0.56(L) 0.60 - 1.10 mg/dL [facility] Glucose 113 70 - 199 mg/dL [facility] Comment: Interpretive Data Fasting glucose >/= 126 [...] 2017. Calcium 9.4 8.5 - 10.3 mg/dL [facility] Blood specimen (specimen) 04/19/2019 6:37 AM CDT 04/19/2019 7:44 AM CDT Greyson Reeves MD LAB BLOOD ORDERABLES Final R esult Performing Organization Address [facility] Co de Phone Number [address] [address] * Calcium, ionized (04/19/2019 6:37 AM CDT) Pathologist [facility] [place] Calcium, Ionized 4.88 4.50 - 5.10 mg/dL [facility] Blood specimen (specimen) 04/19/2019 6:37 AM CDT 04/19/2019 7:44 AM CDT Greyson Reeves MD LAB BLOOD ORDERABLES Final R esult Performing Organization Address [facility] Co de Phone Number [address] [address] * (ABNORMAL) Phosphorus (04/18/2019 9:43 PM CDT) [facility] Phosphorus, pl 1.9(L) 2.3 - 4.5 mg/dL [facility] Blood specimen (specimen) 04/18/2019 9:43 PM CDT 04/18/2019 10:44 PM CDT Greyson Reeves MD LAB BLOOD ORDERABLES Final R esult Performing Organization Address [facility] Co de Phone Number [address] [address] * Magnesium (04/18/2019 9:43 PM CDT) [facility] Magnesium 1.6 1.4 - 2.5 mg/dL [facility] Blood specimen (specimen) 04/18/2019 9:43 PM CDT 04/18/2019 10:44 PM CDT Greyson Reeves MD LAB BLOOD ORDERABLES Final R esult Performing Organization Address [facility] Co de Phone Number [address] [address] * (ABNORMAL) CBC without differential (04/18/2019 9:43 PM CDT) [facility] WBC 5.2 3.8 - 9.9 K/cumm [facility] Hgb 9.4(L) 11.9 - 15.5 g/dL [facility] Hct 28.5(L) 35.6 - 45.5 % [facility] Plt 121(L) 150 - 400 K/cumm [facility] MPV 11.1 9.1 - 12.3 fL [facility] RBC 3.25(L) 3.90 - 5.20 M/cumm [facility] MCV 87.7 81.3 - 96.4 fL [facility] MCH 28.9 27.1 - 33.3 pg [facility] MCHC 33.0 32.3 - 35.7 g/dL [facility] RDW CV 15.5(H) 11.1 - 14.9 % [facility] RDW SD 49.4(H) 35.7 - 48.1 fL [facility] NRBC abs 0.00 0.00 - 0.01 K/cumm [facility] Blood specimen (specimen) 04/18/2019 9:43 PM CDT 04/18/2019 10:44 PM CDT us Greyson Reeves MD LAB BLOOD ORDERABLES Final R esult [facility] [address] [place] [address] * (ABNORMAL) Basic metabolic panel (04/18/2019 6:33 PM CDT) Sodium 141 135 - 145 mmol/L [facility] Potassium, pl 2.8(L) 3.3 - 4.9 mmol/L [facility] Chloride 107 97 - 110 mmol/L [facility] CO2 26 22 - 32 mmol/L [facility] Anion gap 8 2 - 15 mmol/L [facility] BUN 3(L) 8 - 25 mg/dL [facility] Creatinine 0.53(L) 0.60 - 1.10 mg/dL [facility] Glucose 125 70 - 199 mg/dL [facility] Comment: Interpretive Data Fasting glucose >/= 126 [...] 2017. Calcium 8.4(L) 8.5 - 10.3 mg/dL [facility] Blood specimen (specimen) 04/18/2019 6:33 PM CDT 04/18/2019 7:25 PM CDT Greyson Reeves MD LAB BLOOD ORDERABLES Final R esult Performing Organization Address City/[facility]/ZIP Co de Phone Number JASON [address] [address] * Calcium, ionized (04/18/2019 6:33 PM CDT) Calcium, Ionized 4.83 4.50 - 5.10 mg/dL [facility] Blood specimen (specimen) 04/18/2019 6:33 PM CDT 04/18/2019 7:25 PM CDT Greyson Reeves MD LAB BLOOD ORDERABLES Final R [facility], [facility] Performing Organization Address [facility] Co de Phone Number [facility] [address] [address] * (ABNORMAL) Basic metabolic panel (04/18/2019 6:42 AM CDT) Pathologist [facility] [place] Sodium 142 135 - 145 mmol/L [facility] Potassium, pl 3.1(L) 3.3 - 4.9 mmol/L [facility] Chloride 110 97 - 110 mmol/L [facility] CO2 24 22 - 32 mmol/L [facility] Anion gap 8 2 - 15 mmol/L [facility] BUN 3(L) 8 - 25 mg/dL [facility] Creatinine 0.54(L) 0.60 - 1.10 mg/dL [facility] Glucose 119 70 - 199 mg/dL [facility] Comment: Interpretive Data Fasting glucose >/= 126 [...] 2017. Calcium 8.5 8.5 - 10.3 mg/dL [facility] Blood specimen (specimen) 04/18/2019 6:42 AM CDT 04/18/2019 8:08 AM CDT Greyson Reeves MD LAB BLOOD ORDERABLES Final R esult Performing Organization Address City/[facility] Co de Phone Number [address] [address] * Calcium, ionized (04/18/2019 6:42 AM CDT) Pathologist [facility] [place] Calcium, Ionized 4.90 4.50 - 5.10 mg/dL [facility] Blood specimen (specimen) 04/18/2019 6:42 AM CDT 04/18/2019 8:08 AM CDT Greyson Reeves MD LAB BLOOD ORDERABLES Final R esult Performing Organization Address City/[facility] Co de Phone Number [address] [address] * (ABNORMAL) Differential, auto (04/17/2019 10:47 PM CDT) [facility] Neutrophil abs 3.3 1.7 - 6.5 K/cumm [facility] Imm gran abs 0.1 0.0 - 0.1 K/cumm [facility] Lymphocyte abs 0.2(L) 0.8 - 3.3 K/cumm [facility] Monocyte abs 0.5 0.2 - 0.8 K/cumm [facility] Eosinophil abs 0.1 0.0 - 0.5 K/cumm [facility] Basophil abs 0.0 0.0 - 0.1 K/cumm [facility] Neutrophil pct 78.1 % [facility] Comment: Interpretive Data Percent cell count reference ranges are not reported, since discordance with absolute values may lead to misinterpretation of CBC data. Current Interpretive Data was last revised on 2017. Imm gran pct 2.4 % [facility] Comment: Interpretive Data Percent cell count reference ranges are not reported, since discordance with absolute values may lead to misinterpretation of CBC data. Current Interpretive Data was last revised on 2017. Lymphocyte pct 4.8 % [facility] Comment: Interpretive Data Percent cell count reference ranges are not reported, since discordance with absolute values may lead to misinterpretation of CBC data. Current Interpretive Data was last revised on 2017. Monocyte pct 11.8 % [facility] Comment: Interpretive Data Percent cell count reference ranges are not reported, since discordance with absolute values may lead to misinterpretation of CBC data. Current Interpretive Data was last revised on 2017. Eosinophil pct 2.4 % [facility] Comment: Interpretive Data Percent cell count reference ranges are not reported, since discordance with absolute values may lead to misinterpretation of CBC data. Current Interpretive Data was last revised on 2017. Basophil pct 0.5 % [facility] Comment: Interpretive Data Percent cell count reference ranges are not reported, since discordance with absolute values may lead to misinterpretation of CBC data. Current Interpretive Data was last revised on 2017. Blood specimen (specimen) 04/17/2019 10:47 PM CDT 04/17/2019 11:52 PM CDT us Katarina Hall HYDROTHERAPIST LAB BLOOD ORDERABLES Final Res ult Performing Organization Address [facility]/ZIP Co de Phone Number [address] [address] * (ABNORMAL) Phosphorus (04/17/2019 10:47 PM CDT) Phosphorus, pl 1.4(L) 2.3 - 4.5 mg/dL [facility] Blood specimen (specimen) 04/17/2019 10:47 PM CDT 04/17/2019 11:52 PM CDT us Greyson Reeves MD LAB BLOOD ORDERABLES Final R esult Performing Organization Address [facility]/ZIP Co de Phone Number [facility] [address] [place] [address] * Magnesium (04/17/2019 10:47 PM CDT) Pathologist [facility] [facility] [place] Magnesium 2.0 1.4 - 2.5 mg/dL [facility] Blood specimen (specimen) 04/17/2019 10:47 PM CDT 04/17/2019 11:52 PM CDT Greyson Reeves MD LAB BLOOD ORDERABLES Final R esult Performing Organization Address City/[facility]/ZIP Co de Phone Number [facility] [address] [place] [address] * (ABNORMAL) CBC with auto differential (04/17/2019 10:47 PM CDT) [facility] WBC 4.2 3.8 - 9.9 K/cumm [facility] Hgb 8.9(L) 11.9 - 15.5 g/dL [facility] Hct 27.3(L) 35.6 - 45.5 % [facility] Plt 95(L) 150 - 400 K/cumm [facility] MPV 10.6 9.1 - 12.3 fL [facility] RBC 3.06(L) 3.90 - 5.20 M/cumm [facility] MCV 89.2 81.3 - 96.4 fL [facility] Comment:MCV delta due to erin arent blood transfusion. MCH 29.1 27.1 - 33.3 pg [facility] MCHC 32.6 32.3 - 35.7 g/dL [facility] RDW CV 15.6(H) 11.1 - 14.9 % [facility] RDW SD 50.8(H) 35.7 - 48.1 fL [facility] NRBC abs 0.00 0.00 - 0.01 K/cumm [facility] Blood specimen (specimen) 04/17/2019 10:47 PM CDT 04/17/2019 11:52 PM CDT Katarina Hall HYDROTHERAPIST LAB BLOOD ORDERABLES Final Res ult Performing Organization Address [facility]/ZIP Co de Phone Number [facility] [address] [place] [address] * Potassium, whole blood (04/17/2019 8:06 PM CDT) Pathologist [facility] [place] Potassium, bld 3.5 3.3 - 4.9 mmol/L [facility] Blood specimen (specimen) 04/17/2019 8:06 PM CDT 04/17/2019 8:36 PM CDT Greyson Reeves MD LAB BLOOD ORDERABLES Final R esult Performing Organization Address City/[facility] Co de Phone Number JASON BLACK [address] [place] [address] * Critical Result Callback Chemistry (04/17/2019 6:51 PM CDT) [facility] Date Notified [id number] [facility] Time Notified 1946 [facility] TestName Potassium Plas [facility] Called/Read Back gaby GOMEZ [facility] Credentials RN JASON [facility] Called By cb JASON [facility] Blood specimen (specimen) 04/17/2019 6:51 PM CDT 04/17/2019 7:09 PM CDT Greyson Reeves MD LAB BLOOD ORDERABLES Final R esult Performing Organization Address City/[facility] Co de Phone Number [facility] BL[facility] [address] [place] [address] * (ABNORMAL) Basic metabolic panel (04/17/2019 6:51 PM CDT) [facility] Sodium 139 135 - 145 mmol/L [facility] Potassium, pl 8.8(C) 3.3 - 4.9 mmol/L [facility] Chloride 112(H) 97 - 110 mmol/L [facility] CO2 19(L) 22 - 32 mmol/L [facility] Anion gap 8 2 - 15 mmol/L [facility] BUN 5(L) 8 - 25 mg/dL [facility] Creatinine 0.50(L) 0.60 - 1.10 mg/dL [facility] Glucose 274(H) 70 - 199 mg/dL [facility] Comment: Interpretive Data Fasting glucose >/= 126 [...] 2017. Calcium 6.8(L) 8.5 - 10.3 mg/dL [facility] Blood specimen (specimen) 04/17/2019 6:51 PM CDT 04/17/2019 7:09 PM CDT Greyson Reeves MD LAB BLOOD ORDERABLES Final R esult Performing Organization Address [facility] de Phone Number [address] [address] * (ABNORMAL) Calcium, ionized (04/17/2019 6:51 PM CDT) [facility] Calcium, Ionized 3.87(L) 4.50 - 5.10 mg/dL [facility] Blood specimen (specimen) 04/17/2019 6:51 PM CDT 04/17/2019 7:06 PM CDT Greyson Reeves MD LAB BLOOD ORDERABLES Final R esult Performing Organization Address [facility] de Phone Number [facility] [address] [place] [address] * Transfuse RBC (04/17/2019 4:46 PM CDT) Blood specimen (specimen) Katarina Hall HYDROTHERAPIST BLOOD TRANSFUSION ORDERABLES F inal Result Performing Organization Address [facility]/State/ZIP Co de Phone Number [address] [address] * Transfuse RBC: 1 Units (04/17/2019 4:46 PM CDT) Blood specimen (specimen) Katarina Hall HYDROTHERAPIST BLOOD TRANSFUSION ORDERABLES F inal Result * Calcium, ionized (04/17/2019 1:03 PM CDT) Calcium, Ionized 4.54 4.50 - 5.10 mg/dL [facility] Blood specimen (specimen) 04/17/2019 1:03 PM CDT 04/17/2019 1:58 PM CDT Greyson Reeves MD LAB BLOOD ORDERABLES Final R esult Performing Organization Address City/State/[facility] Co de Phone Number [address] [address] * (ABNORMAL) Basic metabolic panel (04/17/2019 1:03 PM CDT) Pathologist [facility] [place] Sodium 138 135 - 145 mmol/L [facility] Potassium, pl 3.3 3.3 - 4.9 mmol/L [facility] Chloride 110 97 - 110 mmol/L [facility] CO2 19(L) 22 - 32 mmol/L [facility] Anion gap 9 2 - 15 mmol/L [facility] BUN 5(L) 8 - 25 mg/dL [facility] Creatinine 0.52(L) 0.60 - 1.10 mg/dL [facility] Glucose 263(H) 70 - 199 mg/dL [facility] Comment: Interpretive Data Fasting glucose >/= 126 [...] 2017. Calcium 7.4(L) 8.5 - 10.3 mg/dL [facility] Blood specimen (specimen) 04/17/2019 1:03 PM CDT 04/17/2019 1:58 PM CDT Greyson Reeves MD LAB BLOOD ORDERABLES Final R esult Performing Organization Address [facility] Co de Phone Number [address] [phone] * Calcium, ionized, whole blood (04/17/2019 9:43 AM CDT) Ca, ionized, bld 4.73 4.50 - 5.10 mg/dL [facility] Blood specimen (specimen) 04/17/2019 9:43 AM CDT 04/17/2019 10:43 AM CDT Greyson Reeves MD LAB BLOOD ORDERABLES Final R esult Performing Organization Address [facility] de Phone Number [address] [phone] * Potassium, whole blood (04/17/2019 9:43 AM CDT) Potassium, bld 3.5 3.3 - 4.9 mmol/L [facility] Blood specimen (specimen) 04/17/2019 9:43 AM CDT 04/17/2019 10:43 AM CDT Greyson Reeves MD LAB BLOOD ORDERABLES Final R esult Performing Organization Address [facility] de Phone Number [address] [phone] * (ABNORMAL) Basic metabolic panel (04/17/2019 9:43 AM CDT) Sodium 143 135 - 145 mmol/L [facility] Potassium, pl 3.5 3.3 - 4.9 mmol/L [facility] Chloride 114(H) 97 - 110 mmol/L [facility] CO2 21(L) 22 - 32 mmol/L [facility] Anion gap 8 2 - 15 mmol/L [facility] BUN 6(L) 8 - 25 mg/dL [facility] Creatinine 0.58(L) 0.60 - 1.10 mg/dL [facility] Glucose 103 70 - 199 mg/dL [facility] Comment: Interpretive Data Fasting glucose >/= 126 [...] 2017. Calcium 7.7(L) 8.5 - 10.3 mg/dL [facility] Blood specimen (specimen) 04/17/2019 9:43 AM CDT 04/17/2019 10:45 AM CDT Greyson Reeves MD LAB BLOOD ORDERABLES Final R esult [facility] [address] [place] [address] * Type and screen (04/17/2019 9:43 AM CDT) Yolande, indirect Negative [facility] ABO Rh AB Positive [facility] Blood specimen (specimen) 04/17/2019 9:43 AM CDT 04/17/2019 10:47 AM CDT Narrative [facility] - 04/17/2019 11:44 AM CDT Has the patient had Daratumumab (Darzalex) in the past 6 months?->Unknown Katarina Hall HYDROTHERAPIST LAB BLOOD BANK TEST ORDERABLES Final Result Performing Organization Address [facility] Co de Phone Number JASON BL[address] [address] * Prepare RBC: 2 Units (04/17/2019 7:42 AM CDT) Product code [id number] [facility] Unit Number [id number] [facility] Product Blood Type BPOS [facility] Dispense Status PRESUMED TRANSFUSED [facility] Product code [id number] [facility] Unit Number [id number] [facility] Product Blood Type BPOS [facility] Dispense Status RETURNED [facility] Blood specimen (specimen) 04/17/2019 7:42 AM CDT 04/17/2019 7:43 AM CDT Narrative [facility] - 04/18/2019 7:34 AM CDT Are special requirements needed? (all products are leukoreduced)->No Date required:-[id number] LRRBC # of [id number] Reasons:-Hgb <7 g/dL} Katarina Hall HYDROTHERAPIST BLOOD BANK PRODUCT ORDERABLES Final Result Performing Organization Address [facility] Co de Phone Number JASON [address] [address] * ECG 12 lead (04/17/2019 7:30 AM CDT) Ventricular Rate EKG/Min [address] [facility] Atrial Rate [address] [facility] AR-Interval (MSEC) [address] [facility] QRS-Interval (MSEC) [address] [facility] QT-Interval (MSEC) [address] [facility] QTc [address] [facility] P [place] [address] [facility] R [place] [address] [facility] T [place] [address] [facility] Diagnosis Normal sinus rhythm Normal ECG When compared with ECG of 14-APR-2019 04:21, Vent. rate has decreased BY ??46 BPM Confirmed by PIPER WILSON M.D ([id number]) on 04/17/2019 11:40:[address] [facility] 04/17/2019 7:30 AM CDT 04/17/2019 11:40 AM CDT us Greyson Reeves MD ECG ORDERABLES Final Result Performing Organization Address City/[facility]/ZIP Co de Phone Number [facility] * Critical Result Callback Chemistry (04/17/2019 6:18 AM CDT) Date Notified 20190417 [facility] Time Notified 800 [facility] TestName Potassium Plas [facility] Called/Read Back Penelope GOMEZ [facility] Credentials RN JASON [facility] Called By ra JASON BLACK Blood specimen (specimen) 04/17/2019 6:18 AM CDT 04/17/2019 7:22 AM CDT us Greyson Reeves MD LAB BLOOD ORDERABLES Final R esult Performing Organization Address City/[facility] de Phone Number [facility] [address] [place] [address] * (ABNORMAL) Basic metabolic panel (04/17/2019 6:18 AM CDT) Sodium 145 135 - 145 mmol/L [facility] Potassium, pl 8.1(C) 3.3 - 4.9 mmol/L [facility] Chloride 124(H) 97 - 110 mmol/L [facility] CO2 19(L) 22 - 32 mmol/L [facility] Anion gap 2 2 - 15 mmol/L [facility] BUN 6(L) 8 - 25 mg/dL [facility] Creatinine 0.53(L) 0.60 - 1.10 mg/dL [facility] Glucose 237(H) 70 - 199 mg/dL [facility] Comment: Interpretive Data Fasting glucose >/= 126 [...] 2017. Calcium 6.7(L) 8.5 - 10.3 mg/dL [facility] Blood specimen (specimen) 04/17/2019 6:18 AM CDT 04/17/2019 7:22 AM CDT Greyson Reeves MD LAB BLOOD ORDERABLES Final R esult Performing Organization Address [facility] Co de Phone Number [address] [phone] * (ABNORMAL) Calcium, ionized (04/17/2019 6:18 AM CDT) Calcium, Ionized 4.19(L) 4.50 - 5.10 mg/dL [facility] Blood specimen (specimen) 04/17/2019 6:18 AM CDT 04/17/2019 7:22 AM CDT Greyson Reeves MD LAB BLOOD ORDERABLES Final R esult Performing Organization Address [facility] de Phone Number [address] [address] * (ABNORMAL) Phosphorus (04/17/2019 5:12 AM CDT) Phosphorus, pl 1.3(L) 2.3 - 4.5 mg/dL [facility] Blood specimen (specimen) 04/17/2019 5:12 AM CDT 04/17/2019 5:41 AM CDT Greyson Reeves MD LAB BLOOD ORDERABLES Final R esult Performing Organization Address [facility] Co de Phone Number [address] [address] * Magnesium (04/17/2019 5:12 AM CDT) [facility] Magnesium 1.8 1.4 - 2.5 mg/dL [facility] Blood specimen (specimen) 04/17/2019 5:12 AM CDT 04/17/2019 5:41 AM CDT Greyson Reeves MD LAB BLOOD ORDERABLES Final R [facility], [facility] Performing Organization Address [facility] Co de Phone Number [address] [address] * Calcium, ionized (04/17/2019 5:12 AM CDT) [facility] Calcium, Ionized 4.69 4.50 - 5.10 mg/dL [facility] Blood specimen (specimen) 04/17/2019 5:12 AM CDT 04/17/2019 5:41 AM CDT Greyson Reeves MD LAB BLOOD ORDERABLES Final R esult Performing Organization Address [facility] de Phone Number [address] [address] * (ABNORMAL) Basic metabolic panel (04/17/2019 5:12 AM CDT) [facility] Sodium 143 135 - 145 mmol/L [facility] Potassium, pl 3.5 3.3 - 4.9 mmol/L [facility] Chloride 114(H) 97 - 110 mmol/L [facility] CO2 21(L) 22 - 32 mmol/L [facility] Anion gap 8 2 - 15 mmol/L [facility] BUN 7(L) 8 - 25 mg/dL [facility] Creatinine 0.59(L) 0.60 - 1.10 mg/dL [facility] Glucose 112 70 - 199 mg/dL [facility] Comment: Interpretive Data Fasting glucose >/= 126 [...] 2017. Calcium 7.6(L) 8.5 - 10.3 mg/dL [facility] Blood specimen (specimen) 04/17/2019 5:12 AM CDT 04/17/2019 5:41 AM CDT us Greyson Reeves MD LAB BLOOD ORDERABLES Final R esult [facility] [address] [place] [address] * (ABNORMAL) Differential, auto (04/16/2019 10:11 PM CDT) Neutrophil abs 3.4 1.7 - 6.5 K/cumm [facility] Imm gran abs 0.0 0.0 - 0.1 K/cumm [facility] Lymphocyte abs 0.2(L) 0.8 - 3.3 K/cumm [facility] Monocyte abs 0.4 0.2 - 0.8 K/cumm [facility] Eosinophil abs 0.1 0.0 - 0.5 K/cumm [facility] Basophil abs 0.0 0.0 - 0.1 K/cumm [facility] Neutrophil pct 81.3 % [facility] Comment: Interpretive Data Percent cell count reference ranges are not reported, since discordance with absolute values may lead to misinterpretation of CBC data. Current Interpretive Data was last revised on 2017. Imm gran pct 1.2 % [facility] Comment: Interpretive Data Percent cell count reference ranges are not reported, since discordance with absolute values may lead to misinterpretation of CBC data. Current Interpretive Data was last revised on 2017. Lymphocyte pct 5.0 % [facility] Comment: Interpretive Data Percent cell count reference ranges are not reported, since discordance with absolute values may lead to misinterpretation of CBC data. Current Interpretive Data was last revised on 2017. Monocyte pct 10.3 % [facility] Comment: Interpretive Data Percent cell count reference ranges are not reported, since discordance with absolute values may lead to misinterpretation of CBC data. Current Interpretive Data was last revised on 2017. Eosinophil pct 1.7 % [facility] Comment: Interpretive Data Percent cell count reference ranges are not reported, since discordance with absolute values may lead to misinterpretation of CBC data. Current Interpretive Data was last revised on 2017. Basophil pct 0.5 % [facility] Comment: Interpretive Data Percent cell count reference ranges are not reported, since discordance with absolute values may lead to misinterpretation of CBC data. Current Interpretive Data was last revised on 2017. Blood specimen (specimen) 04/16/2019 10:11 PM CDT 04/16/2019 10:43 PM CDT us Katarina Hall HYDROTHERAPIST LAB BLOOD ORDERABLES Final Res ult [facility] [address] [place] [address] * (ABNORMAL) Basic metabolic panel (04/16/2019 10:11 PM CDT) Sodium 143 135 - 145 mmol/L [facility] Potassium, pl 3.0(L) 3.3 - 4.9 mmol/L [facility] Chloride 115(H) 97 - 110 mmol/L [facility] CO2 18(L) 22 - 32 mmol/L [facility] Anion gap 10 2 - 15 mmol/L [facility] BUN 9 8 - 25 mg/dL [facility] Creatinine 0.61 0.60 - 1.10 mg/dL [facility] Glucose 73 70 - 199 mg/dL [facility] Comment: Interpretive Data Fasting glucose >/= 126 [...] 2017. Calcium 7.1(L) 8.5 - 10.3 mg/dL [facility] Blood specimen (specimen) 04/16/2019 10:11 PM CDT 04/16/2019 10:43 PM CDT us Greyson Reeves MD LAB BLOOD ORDERABLES Final R esult Performing Organization Address City/[facility]/ZIP Co de Phone Number [address] [address] * (ABNORMAL) CBC with auto differential (04/16/2019 10:11 PM CDT) WBC 4.2 3.8 - 9.9 K/cumm [facility] Hgb 6.9(L) 11.9 - 15.5 g/dL [facility] Hct 21.0(L) 35.6 - 45.5 % [facility] Plt 82(L) 150 - 400 K/cumm [facility] MPV 11.2 9.1 - 12.3 fL [facility] RBC 2.23(L) 3.90 - 5.20 M/cumm [facility] MCV 94.2 81.3 - 96.4 fL [facility] MCH 30.9 27.1 - 33.3 pg [facility] MCHC 32.9 32.3 - 35.7 g/dL [facility] RDW CV 13.9 11.1 - 14.9 % [facility] RDW SD 48.2(H) 35.7 - 48.1 fL [facility] NRBC abs 0.00 0.00 - 0.01 K/cumm [facility] Blood specimen (specimen) 04/16/2019 10:11 PM CDT 04/16/2019 10:43 PM CDT us Katarina Hall HYDROTHERAPIST LAB BLOOD ORDERABLES Final Res ult Performing Organization Address [facility]/ZIP Co de Phone Number [facility] [address] [place] [address] * Calcium, ionized (04/16/2019 6:13 PM CDT) Calcium, Ionized 4.53 4.50 - 5.10 mg/dL [facility] Blood specimen (specimen) 04/16/2019 6:13 PM CDT 04/16/2019 7:05 PM CDT Greyson Reeves MD LAB BLOOD ORDERABLES Final R esult [facility] [address] [place] [address] * (ABNORMAL) Basic metabolic panel (04/16/2019 6:13 PM CDT) [facility] Sodium 142 135 - 145 mmol/L [facility] Potassium, pl 3.2(L) 3.3 - 4.9 mmol/L [facility] Chloride 117(H) 97 - 110 mmol/L [facility] CO2 19(L) 22 - 32 mmol/L [facility] Anion gap 6 2 - 15 mmol/L [facility] BUN 9 8 - 25 mg/dL [facility] Creatinine 0.60 0.60 - 1.10 mg/dL [facility] Glucose 70 70 - 199 mg/dL [facility] Comment: Interpretive Data Fasting glucose >/= 126 [...] 2017. Calcium 7.3(L) 8.5 - 10.3 mg/dL [facility] Blood specimen (specimen) 04/16/2019 6:13 PM CDT 04/16/2019 7:05 PM CDT Greyson Reeves MD LAB BLOOD ORDERABLES Final R esult Performing Organization Address City/[facility]/ZIP Co de Phone Number JASON [facility] [address] [place] [address] * Calcium, ionized (04/16/2019 12:08 PM CDT) Pathologist [facility] [place] Calcium, Ionized 4.81 4.50 - 5.10 mg/dL [facility] Blood specimen (specimen) 04/16/2019 12:08 PM CDT 04/16/2019 12:52 PM CDT Greyson Reeves MD LAB BLOOD ORDERABLES Final R [facility], [facility] Performing Organization Address [facility] Co de Phone Number [facility] [address] [address] * (ABNORMAL) Basic metabolic panel (04/16/2019 12:08 PM CDT) Pathologist [facility] [place] Sodium 143 135 - 145 mmol/L [facility] Potassium, pl 3.4 3.3 - 4.9 mmol/L [facility] Chloride 114(H) 97 - 110 mmol/L [facility] CO2 20(L) 22 - 32 mmol/L [facility] Anion gap 9 2 - 15 mmol/L [facility] BUN 10 8 - 25 mg/dL [facility] Creatinine 0.71 0.60 - 1.10 mg/dL [facility] Glucose 86 70 - 199 mg/dL [facility] Comment: Interpretive Data Fasting glucose >/= 126 [...] 2017. Calcium 8.2(L) 8.5 - 10.3 mg/dL [facility] Blood specimen (specimen) 04/16/2019 12:08 PM CDT 04/16/2019 12:52 PM CDT Greyson Reeves MD LAB BLOOD ORDERABLES Final R [facility], [facility] Performing Organization Address [facility] Co de Phone Number [address] [address] * Calcium, ionized (04/16/2019 6:45 AM CDT) Pathologist [facility] [place] Calcium, Ionized 4.62 4.50 - 5.10 mg/dL [facility] Blood specimen (specimen) 04/16/2019 6:45 AM CDT 04/16/2019 7:47 AM CDT Greyson Reeves MD LAB BLOOD ORDERABLES Final R esult Performing Organization Address [facility] de Phone Number [address] [address] * (ABNORMAL) Basic metabolic panel (04/16/2019 6:45 AM CDT) [facility] Sodium 140 135 - 145 mmol/L [facility] Potassium, pl 3.5 3.3 - 4.9 mmol/L [facility] Chloride 113(H) 97 - 110 mmol/L [facility] CO2 21(L) 22 - 32 mmol/L [facility] Anion gap 6 2 - 15 mmol/L [facility] BUN 12 8 - 25 mg/dL [facility] Creatinine 0.68 0.60 - 1.10 mg/dL [facility] Glucose 81 70 - 199 mg/dL [facility] Comment: Interpretive Data Fasting glucose >/= 126 [...] Calcium 8.2(L) 8.5 - 10.3 mg/dL [facility] Blood specimen (specimen) 04/16/2019 6:45 AM CDT 04/16/2019 7:47 AM CDT us Greyson Reeves MD LAB BLOOD ORDERABLES Final R esult [facility] [address] [place] [address] * (ABNORMAL) Basic metabolic panel (04/15/2019 9:26 PM CDT) Sodium 141 135 - 145 mmol/L [facility] Potassium, pl 3.8 3.3 - 4.9 mmol/L [facility] Chloride 114(H) 97 - 110 mmol/L [facility] CO2 22 22 - 32 mmol/L [facility] Anion gap 5 2 - 15 mmol/L [facility] BUN 14 8 - 25 mg/dL [facility] Creatinine 0.74 0.60 - 1.10 mg/dL [facility] Glucose 90 70 - 199 mg/dL [facility] Comment: Interpretive Data Fasting glucose >/= 126 [...] 2017. Calcium 8.5 8.5 - 10.3 mg/dL [facility] Blood specimen (specimen) 04/15/2019 9:26 PM CDT 04/15/2019 10:52 PM CDT Greyson Reeves MD LAB BLOOD ORDERABLES Final R esult Performing Organization Address City/[facility]/ZIP Co de Phone Number [address] [address] * Phosphorus (04/15/2019 9:26 PM CDT) Pathologist [facility] [place] Phosphorus, pl 2.3 2.3 - 4.5 mg/dL [facility] Blood specimen (specimen) 04/15/2019 9:26 PM CDT 04/15/2019 10:52 PM CDT Greyson Reeves MD LAB BLOOD ORDERABLES Final R esult Performing Organization Address [facility] de Phone Number [address] [address] * Magnesium (04/15/2019 9:26 PM CDT) [facility] Magnesium 1.7 1.4 - 2.5 mg/dL [facility] Blood specimen (specimen) 04/15/2019 9:26 PM CDT 04/15/2019 10:52 PM CDT Greyson Reeves MD LAB BLOOD ORDERABLES Final R [facility] Performing Organization Address [facility] de Phone Number [address] [address] * (ABNORMAL) CBC without differential (04/15/2019 9:26 PM CDT) [facility] WBC 3.8 3.8 - 9.9 K/cumm [facility] Hgb 8.0(L) 11.9 - 15.5 g/dL [facility] Hct 23.8(L) 35.6 - 45.5 % [facility] Plt 84(L) 150 - 400 K/cumm [facility] MPV 11.0 9.1 - 12.3 fL [facility] RBC 2.53(L) 3.90 - 5.20 M/cumm [facility] MCV 94.1 81.3 - 96.4 fL [facility] MCH 31.6 27.1 - 33.3 pg [facility] MCHC 33.6 32.3 - 35.7 g/dL [facility] RDW CV 14.1 11.1 - 14.9 % [facility] RDW SD 48.1 35.7 - 48.1 fL [facility] NRBC abs 0.00 0.00 - 0.01 K/cumm [facility] Blood specimen (specimen) 04/15/2019 9:26 PM CDT 04/15/2019 10:32 PM CDT Greyson Reeves MD LAB BLOOD ORDERABLES Final R esult Performing Organization Address [facility] Co de Phone Number [address] [address] * Calcium, ionized (04/15/2019 9:26 PM CDT) Calcium, Ionized 4.79 4.50 - 5.10 mg/dL [facility] Blood specimen (specimen) 04/15/2019 9:26 PM CDT 04/15/2019 10:32 PM CDT Greyson Reeves MD LAB BLOOD ORDERABLES Final R esult Performing Organization Address [facility] Co de Phone Number [address] [address] * Calcium, ionized (04/15/2019 8:14 PM CDT) Calcium, Ionized 4.71 4.50 - 5.10 mg/dL [facility] Blood specimen (specimen) 04/15/2019 8:14 PM CDT 04/15/2019 9:12 PM CDT Greyson Reeves MD LAB BLOOD ORDERABLES Final R esult Performing Organization Address City/[facility] Co de Phone Number [address] [place] [address] * (ABNORMAL) Calcium, ionized (04/15/2019 1:45 PM CDT) Calcium, Ionized 5.32(H) 4.50 - 5.10 mg/dL [facility] Blood specimen (specimen) 04/15/2019 1:45 PM CDT 04/15/2019 2:28 PM CDT Greyson Reeves MD LAB BLOOD ORDERABLES Final R esult [facility] [address] [place] [address] * (ABNORMAL) Basic metabolic panel (04/15/2019 5:20 AM CDT) Pathologist [facility] [place] Sodium 140 135 - 145 mmol/L [facility] Potassium, pl 3.8 3.3 - 4.9 mmol/L [facility] Chloride 110 97 - 110 mmol/L [facility] CO2 23 22 - 32 mmol/L [facility] Anion gap 7 2 - 15 mmol/L [facility] BUN 17 8 - 25 mg/dL [facility] Creatinine 0.89 0.60 - 1.10 mg/dL [facility] Glucose 112 70 - 199 mg/dL [facility] Comment: Interpretive Data Fasting glucose >/= 126 [...] 2017. Calcium 8.0(L) 8.5 - 10.3 mg/dL [facility] Blood specimen (specimen) 04/15/2019 5:20 AM CDT 04/15/2019 5:43 AM CDT us Neto Moss MD LAB BLOOD ORDE RABLES Final Result Performing Organization Address [facility] Co de Phone Number [address] [address] * (ABNORMAL) CBC without differential (04/15/2019 5:16 AM CDT) WBC 4.2 3.8 - 9.9 K/cumm [facility] Hgb 8.5(L) 11.9 - 15.5 g/dL [facility] Hct 26.1(L) 35.6 - 45.5 % [facility] Plt 88(L) 150 - 400 K/cumm [facility] MPV 10.7 9.1 - 12.3 fL [facility] RBC 2.74(L) 3.90 - 5.20 M/cumm [facility] MCV 95.3 81.3 - 96.4 fL [facility] MCH 31.0 27.1 - 33.3 pg [facility] MCHC 32.6 32.3 - 35.7 g/dL [facility] RDW CV 14.6 11.1 - 14.9 % [facility] RDW SD 49.8(H) 35.7 - 48.1 fL [facility] NRBC abs 0.00 0.00 - 0.01 K/cumm [facility] Blood specimen (specimen) 04/15/2019 5:16 AM CDT 04/15/2019 5:43 AM CDT Greyson Reeves MD LAB BLOOD ORDERABLES Final R esult Performing Organization Address [facility]/ZIP Co de Phone Number [facility] [address] [place] [address] * Calcium, ionized (04/15/2019 5:11 AM CDT) Calcium, Ionized 4.59 4.50 - 5.10 mg/dL [facility] Blood specimen (specimen) 04/15/2019 5:11 AM CDT 04/15/2019 5:43 AM CDT us Greyson Reeves MD LAB BLOOD ORDERABLES Final R esult [facility] [address] [place] [address] * XR Abdomen Ap 1 Vw (04/15/2019 [...] CDT) Sodium 139 135 - 145 mmol/L [facility] Potassium, pl 3.8 3.3 - 4.9 mmol/L [facility] Chloride 110 97 - 110 mmol/L [facility] CO2 22 22 - 32 mmol/L [facility] Anion gap 7 2 - 15 mmol/L [facility] BUN 18 8 - 25 mg/dL [facility] Creatinine 1.02 0.60 - 1.10 mg/dL [facility] Glucose 121 70 - 199 mg/dL [facility] Comment: Interpretive Data Fasting glucose >/= 126 [...] 2017. Calcium 7.0(L) 8.5 - 10.3 mg/dL [facility] Blood specimen (specimen) 04/14/2019 11:18 PM CDT 04/14/2019 11:37 PM CDT Greyson Reeves MD LAB BLOOD ORDERABLES Final R esult Performing Organization Address [facility]/ZIP Co de Phone Number [address] [address] * (ABNORMAL) Calcium, ionized (04/14/2019 11:18 PM CDT) [facility] Calcium, Ionized 3.96(L) 4.50 - 5.10 mg/dL [facility] Blood specimen (specimen) 04/14/2019 11:18 PM CDT 04/14/2019 11:37 PM CDT Greyson Reeves MD LAB BLOOD ORDERABLES Final R esult Performing Organization Address City/[facility] Co de Phone Number [address] [address] * (ABNORMAL) Vitamin D 25 hydroxy (04/14/2019 11:18 PM CDT) [facility] Vitamin D 25-OH 22(L) 30 - 80 ng/mL [facility] Blood specimen (specimen) 04/14/2019 11:18 PM CDT 04/14/2019 11:37 PM CDT Greyson Reeves MD LAB BLOOD ORDERABLES Final R esult Performing Organization Address City/[facility]/ZIP Co de Phone Number [address] [address] * (ABNORMAL) PTH (04/14/2019 11:18 PM CDT) [facility] PTH 554(H) 15 - 65 pg/mL [facility] Blood specimen (specimen) 04/14/2019 11:18 PM CDT 04/14/2019 11:38 PM CDT Greyson Reeves MD LAB BLOOD ORDERABLES Final R esult Performing Organization Address [facility] Co de Phone Number [address] [address] * (ABNORMAL) Phosphorus (04/14/2019 11:18 PM CDT) [facility] Phosphorus, pl 2.2(L) 2.3 - 4.5 mg/dL [facility] Blood specimen (specimen) 04/14/2019 11:18 PM CDT 04/14/2019 11:37 PM CDT Greyson Reeves MD LAB BLOOD ORDERABLES Final R esult Performing Organization Address [facility] Co de Phone Number [address] [address] * Magnesium (04/14/2019 11:18 PM CDT) [facility] Magnesium 2.2 1.4 - 2.5 mg/dL [facility] Blood specimen (specimen) 04/14/2019 11:18 PM CDT 04/14/2019 11:37 PM CDT Greyson Reeves MD LAB BLOOD ORDERABLES Final R esult Performing Organization Address City/[facility]/ZIP Co de Phone Number [address] [address] * (ABNORMAL) CBC without differential (04/14/2019 11:18 PM CDT) [facility] WBC 4.8 3.8 - 9.9 K/cumm [facility] Hgb 8.4(L) 11.9 - 15.5 g/dL [facility] Hct 25.3(L) 35.6 - 45.5 % [facility] Plt 93(L) 150 - 400 K/cumm [facility] MPV 10.7 9.1 - 12.3 fL [facility] RBC 2.76(L) 3.90 - 5.20 M/cumm [facility] MCV 91.7 81.3 - 96.4 fL [facility] MCH 30.4 27.1 - 33.3 pg [facility] MCHC 33.2 32.3 - 35.7 g/dL [facility] RDW CV 14.5 11.1 - 14.9 % [facility] RDW SD 48.0 35.7 - 48.1 fL [facility] NRBC abs 0.00 0.00 - 0.01 K/cumm [facility] Blood specimen (specimen) 04/14/2019 11:18 PM CDT 04/14/2019 11:37 PM CDT Greyson Reeves MD LAB BLOOD ORDERABLES Final R esult Performing Organization Address City/[facility]/ZIP Co de Phone Number [address] [address] * aPTT (04/14/2019 5:12 PM CDT) [facility] aPTT 29.7 25.0 - 37.0 sec [facility] Comment: Interpretive Data Therapeutic heparin range:60.0 - 94.0 sec based on correlation with therapeutic heparin activity range of 0.3 -0.7 Units/mL. Current interpretive data was last revised on 2011. Blood specimen (specimen) 04/14/2019 5:12 PM CDT 04/14/2019 6:33 PM CDT us Greyson Reeves MD LAB BLOOD ORDERABLES Final R esult [facility] [address] [place] [address] * (ABNORMAL) Protime-INR (04/14/2019 5:12 PM CDT) Pathologist [facility] [place] PT 15.0(H) 8.6 - 13.0 sec [facility] INR 1.38(H) 0.80 - 1.20 [facility] Comment: Interpretive Data Inpatient therapeutic ranges* Atrial fibrillation ?2.0-3.0 INR Venous thrombo-embolism ?2.0-3.0 INR Bioprosthetic heart valve ?* Mechanical heart valve, bileaflet or tilting disk,aortic position ? 2.0-3.0 INR All other,or bileaflet or tilting disk, in mitral position ? 2.5-3.5 INR *See the pharmacy resource directory (PHRED) for an updated copy of the Tool Book at [email or web address] Current Interpretive Data was last revised 2011. Blood specimen (specimen) 04/14/2019 5:12 PM CDT 04/14/2019 6:33 PM CDT Greyson Reeves MD LAB BLOOD ORDERABLES Final R esult Performing Organization Address [facility] Co de Phone Number [address] [address] * (ABNORMAL) Calcium, ionized (04/14/2019 4:36 PM CDT) Pathologist [facility] [place] Calcium, Ionized 3.49(L) 4.50 - 5.10 mg/dL [facility] Blood specimen (specimen) 04/14/2019 4:36 PM CDT 04/14/2019 5:23 PM CDT Greyson Reeves MD LAB BLOOD ORDERABLES Final R esult Performing Organization Address [facility] de Phone Number [address] [address] * Phosphorus (04/14/2019 4:36 PM CDT) Pathologist [facility] [place] Phosphorus, pl 2.7 2.3 - 4.5 mg/dL [facility] Blood specimen (specimen) 04/14/2019 4:36 PM CDT 04/14/2019 5:23 PM CDT Greyson Reeves MD LAB BLOOD ORDERABLES Final R esult Performing Organization Address [facility] Co de Phone Number [address] [address] * (ABNORMAL) CBC without differential (04/14/2019 4:36 PM CDT) Pathologist [facility] [place] WBC 5.7 3.8 - 9.9 K/cumm [facility] Hgb 10.6(L) 11.9 - 15.5 g/dL [facility] Hct 32.4(L) 35.6 - 45.5 % [facility] Plt 106(L) 150 - 400 K/cumm [facility] MPV 10.6 9.1 - 12.3 fL [facility] RBC 3.41(L) 3.90 - 5.20 M/cumm [facility] MCV 95.0 81.3 - 96.4 fL [facility] MCH 31.1 27.1 - 33.3 pg [facility] MCHC 32.7 32.3 - 35.7 g/dL [facility] RDW CV 14.5 11.1 - 14.9 % [facility] RDW SD 50.3(H) 35.7 - 48.1 fL [facility] NRBC abs 0.00 0.00 - 0.01 K/cumm [facility] Blood specimen (specimen) 04/14/2019 4:36 PM CDT 04/14/2019 5:17 PM CDT Greyson Reeves MD LAB BLOOD ORDERABLES Final R esult Performing Organization Address [facility] Co de Phone Number [address] [address] * Magnesium (04/14/2019 4:36 PM CDT) Pathologist [facility] [place] Magnesium 2.3 1.4 - 2.5 mg/dL [facility] Blood specimen (specimen) 04/14/2019 4:36 PM CDT 04/14/2019 5:23 PM CDT Greyson Reeves MD LAB BLOOD ORDERABLES Final R esult Performing Organization Address [facility] de Phone Number [address] [address] * (ABNORMAL) Comprehensive metabolic panel (04/14/2019 4:36 PM CDT) Sodium 140 135 - 145 mmol/L [facility] Potassium, pl 4.3 3.3 - 4.9 mmol/L [facility] Chloride 112(H) 97 - 110 mmol/L [facility] CO2 18(L) 22 - 32 mmol/L [facility] Anion gap 10 2 - 15 mmol/L [facility] BUN 17 8 - 25 mg/dL [facility] Creatinine 1.07 0.60 - 1.10 mg/dL [facility] Glucose 118 70 - 199 mg/dL [facility] Comment: Interpretive Data Fasting glucose >/= 126 [...] 2017. Calcium 6.8(L) 8.5 - 10.3 mg/dL [facility] Bilirubin, total 1.1 0.1 - 1.2 mg/dL [facility] Protein, pl 5.5(L) 6.5 - 8.5 g/dL [facility] Albumin 2.7(L) 3.5 - 5.0 g/dL [facility] Alk phos 66 40 - 130 Units/L [facility] ALT 13 7 - 45 Units/L [facility] AST 37 10 - 45 Units/L [facility] Blood specimen (specimen) 04/14/2019 4:36 PM CDT 04/14/2019 5:23 PM CDT Greyson Reeves MD LAB BLOOD ORDERABLES Final R esult [facility] [address] [place] [address] * Sodium, urine, random (04/14/2019 1:52 PM CDT) Sodium, ur 34 mmol/L [facility] Comment: Interpretive Data No reference range established. Current interpretive data was last revised 2018. Urine 04/14/2019 1:52 PM CDT 04/14/2019 2:41 PM CDT Greyson Reeves MD LAB URINE ORDERABLES Final R esult Performing Organization Address [facility] Co de Phone Number [facility] [address] [place] [address] * Creatinine, urine, random (04/14/2019 1:52 PM CDT) Creatinine Ur 294.6 mg/dL [facility] Comment: Interpretive Data No reference range established. Current interpretive data was last revised 2018. Urine 04/14/2019 1:52 PM CDT 04/14/2019 2:41 PM CDT us Greyson Reeves MD LAB URINE ORDERABLES Final R esult Performing Organization Address [facility] de Phone Number JASON [facility] [address] [place] [address] * Prepare RBC: 2 Units (04/14/2019 12:14 PM CDT) Product code [id number] [facility] Unit Number [id number] 3-S [facility] Product Blood Type APOS [facility] Dispense Status RETURNED [facility] Product code [id number] [facility] Unit Number [id number] 5-B [facility] Product Blood Type APOS [facility] Dispense Status RETURNED [facility] Blood specimen (specimen) 04/14/2019 12:14 PM CDT 04/14/2019 12:15 PM CDT Narrative [facility] - 04/15/2019 8:53 AM CDT Other indication->concern for post-surgical bleeding Are special requirements needed? (all products are leukoreduced)->No Date required:-20190414 LRRBC # of [id number] Reasons:-Other (specify)} us Greyson Reeves MD BLOOD BANK PRODUCT ORDERABLE S Final Result Performing Organization Address [facility] de Phone Number [facility] [address] [place] [address] * Critical Result Callback Chemistry (04/14/2019 9:17 AM CDT) Date Notified [id number] [facility] Time Notified 1120 JASON [facility] TestName Calcium JASON BLACK Called/Read Back Jane GOMEZ [facility] Credentials RN JASON BLACK Called By nora BLACK Blood specimen (specimen) 04/14/2019 9:17 AM CDT 04/14/2019 10:52 AM CDT Greyson Reeves MD LAB BLOOD ORDERABLES Final R esult Performing Organization Address City/[facility] Co de Phone Number [address] [address] * Troponin I (04/14/2019 9:17 AM CDT) [facility] Troponin I <0.03 0.00 - 0.03 ng/mL [facility] Comment: Interpretive Data: Normal plasma Troponin [...] for Troponin assay. References: 1. Clin Chem 2013;59:[id number] 2. Journal of the [place] [employer] 2012;60:1581-98 Current Interpretive Data Last Revised Date: 2018. Blood specimen (specimen) 04/14/2019 9:17 AM CDT 04/14/2019 10:52 AM CDT Greyson Reeves MD LAB BLOOD ORDERABLES Final R esult Performing Organization Address [facility]/ZIP Co de Phone Number [address] [address] * Phosphorus (04/14/2019 9:17 AM CDT) Pathologist [facility] [place] Phosphorus, pl 2.5 2.3 - 4.5 mg/dL [facility] Blood specimen (specimen) 04/14/2019 9:17 AM CDT 04/14/2019 10:52 AM CDT Greyson Reeves MD LAB BLOOD ORDERABLES Final R esult Performing Organization Address City/[facility] Co de Phone Number [address] [address] * Magnesium (04/14/2019 9:17 AM CDT) [facility] Magnesium 1.6 1.4 - 2.5 mg/dL [facility] Blood specimen (specimen) 04/14/2019 9:17 AM CDT 04/14/2019 10:52 AM CDT Greyson Reeves MD LAB BLOOD ORDERABLES Final R [facility], [facility] Performing Organization Address [facility] de Phone Number [address] [address] * (ABNORMAL) CBC without differential (04/14/2019 9:17 AM CDT) [facility] WBC 5.9 3.8 - 9.9 K/cumm [facility] Hgb 10.1(L) 11.9 - 15.5 g/dL [facility] Hct 30.2(L) 35.6 - 45.5 % [facility] Plt 119(L) 150 - 400 K/cumm [facility] MPV 11.1 9.1 - 12.3 fL [facility] RBC 3.33(L) 3.90 - 5.20 M/cumm [facility] MCV 90.7 81.3 - 96.4 fL [facility] MCH 30.3 27.1 - 33.3 pg [facility] MCHC 33.4 32.3 - 35.7 g/dL [facility] RDW CV 14.3 11.1 - 14.9 % [facility] RDW SD 47.1 35.7 - 48.1 fL [facility] NRBC abs 0.00 0.00 - 0.01 K/cumm [facility] Blood specimen (specimen) 04/14/2019 9:17 AM CDT 04/14/2019 10:53 AM CDT Greyson Reeves MD LAB BLOOD ORDERABLES Final R [facility] Performing Organization Address [facility] de Phone Number [address] [address] * (ABNORMAL) Calcium, ionized (04/14/2019 9:17 AM CDT) Pathologist [facility] [place] Calcium, Ionized 3.66(L) 4.50 - 5.10 mg/dL [facility] Blood specimen (specimen) 04/14/2019 9:17 AM CDT 04/14/2019 10:52 AM CDT Greyson Reeves MD LAB BLOOD ORDERABLES Final R esult Performing Organization Address [facility] de Phone Number [address] [address] * (ABNORMAL) Basic metabolic panel (04/14/2019 9:17 AM CDT) [facility] Sodium 142 135 - 145 mmol/L [facility] Potassium, pl 3.9 3.3 - 4.9 mmol/L [facility] Chloride 110 97 - 110 mmol/L [facility] CO2 23 22 - 32 mmol/L [facility] Anion gap 9 2 - 15 mmol/L [facility] BUN 15 8 - 25 mg/dL [facility] Creatinine 1.19(H) 0.60 - 1.10 mg/dL [facility] Glucose 133 70 - 199 mg/dL [facility] Comment: Interpretive Data Fasting glucose >/= 126 [...] 2017. Calcium 6.4(C) 8.5 - 10.3 mg/dL [facility] Blood specimen (specimen) 04/14/2019 9:17 AM CDT 04/14/2019 10:52 AM CDT Greyson Reeves MD LAB BLOOD ORDERABLES Final R esult Performing Organization Address [facility] de Phone Number [address] [address] * Troponin I (04/14/2019 6:50 AM CDT) Pathologist [facility] [place] Troponin I <0.03 0.00 - 0.03 ng/mL [facility] Comment: Interpretive Data: Normal plasma Troponin I [...] for Troponin assay. References: 1. Clin Chem 2013;59:[id number] 2. Journal of the [place] [employer] 2012;60:1581-98 Current Interpretive Data Last Revised Date: 2018. Blood specimen (specimen) 04/14/2019 6:50 AM CDT 04/14/2019 7:54 AM CDT Greyson Reeves MD LAB BLOOD ORDERABLES Final R esult Performing Organization Address [facility] Co de Phone Number [address] [address] * (ABNORMAL) Calcium, ionized (04/14/2019 5:21 AM CDT) Pathologist [facility] [place] Calcium, Ionized 3.36(L) 4.50 - 5.10 mg/dL [facility] Blood specimen (specimen) 04/14/2019 5:21 AM CDT 04/14/2019 5:51 AM CDT Greyson Reeves MD LAB BLOOD ORDERABLES Final R esult Performing Organization Address City/[facility]/ZIP Co de Phone Number [facility] [address] [place] [address] * ECG 12 lead (04/14/2019 4:21 AM CDT) Pathologist [facility] [place] Ventricular Rate EKG/Min 130 BPM [facility] Atrial Rate [address] [facility] AR-Interval (MSEC) [address] [facility] QRS-Interval (MSEC) [address] [facility] QT-Interval (MSEC) [address] [facility] QTc [address] [facility] P [place] -[address] [facility] R [place] [address] [facility] T [place] [address] [facility] Diagnosis Sinus tachycardia Poor precordial R wave progression consistent with faulty lead placement ,copd, anterior infarction, etc. Anterior infarct (cited on or before 14-APR-2019) Abnormal ECG When compared with ECG of 14-APR-2019 04:21, (unconfirmed) No significant change was found Confirmed by PPIER WILSON M.D ([id number]) on 04/14/2019 4:33:[address] [facility] 04/14/2019 4:21 AM CDT 04/14/2019 4:33 PM CDT us Greyson Reeves MD ECG ORDERABLES Final Result Performing Organization Address City/[facility]/ZIP Co de Phone Number [facility] * (ABNORMAL) Albumin (04/14/2019 1:45 AM CDT) Pathologist [facility] [place] Albumin 3.0(L) 3.5 - 5.0 g/dL [facility] Blood specimen (specimen) 04/14/2019 1:45 AM CDT 04/14/2019 2:21 AM CDT Greyson Reeves MD LAB BLOOD ORDERABLES Final R esult Performing Organization Address City/[facility] Co de Phone Number JASON BLACK [address] [place] [address] * Critical Result Callback Chemistry (04/14/2019 1:45 AM CDT) Date Notified [id number] [facility] Time Notified 309 [facility] TestName Calcium JASON BLACK Called/Read Back Kathy Banker JASON [facility] Credentials RN JASON [facility] Called By bekerry GOMEZ [facility] Blood specimen (specimen) 04/14/2019 1:45 AM CDT 04/14/2019 2:21 AM CDT Greyson Reeves MD LAB BLOOD ORDERABLES Final R esult Performing Organization Address [facility] de Phone Number JASON BL[address] [address] * (ABNORMAL) Basic metabolic panel (04/14/2019 1:45 AM CDT) Sodium 138 135 - 145 mmol/L [facility] [facility] Potassium, pl 4.4 3.3 - 4.9 mmol/L [facility] Chloride 111(H) 97 - 110 mmol/L [facility] CO2 20(L) 22 - 32 mmol/L [facility] Anion gap 7 2 - 15 mmol/L [facility] BUN 11 8 - 25 mg/dL [facility] Creatinine 0.86 0.60 - 1.10 mg/dL [facility] Glucose 157 70 - 199 mg/dL [facility] Comment: Interpretive Data Fasting glucose >/= 126 [...] 2017. Calcium 6.4(C) 8.5 - 10.3 mg/dL [facility] Blood specimen (specimen) 04/14/2019 1:45 AM CDT 04/14/2019 2:21 AM CDT us Greyson Reeves MD LAB BLOOD ORDERABLES Final R esult [facility] [address] [place] [address] * (ABNORMAL) Differential, auto (04/14/2019 1:45 AM CDT) Neutrophil abs 5.1 1.7 - 6.5 K/cumm [facility] Imm gran abs 0.0 0.0 - 0.1 K/cumm [facility] Lymphocyte abs 0.3(L) 0.8 - 3.3 K/cumm [facility] Monocyte abs 0.9(H) 0.2 - 0.8 K/cumm [facility] Eosinophil abs 0.0 0.0 - 0.5 K/cumm [facility] Basophil abs 0.0 0.0 - 0.1 K/cumm [facility] Neutrophil pct 80.6 % [facility] Comment: Confirmed by smear review Interpretive Data Percent cell count reference ranges are not reported, since discordance with absolute values may lead to misinterpretation of CBC data. Current Interpretive Data was last revised on 2017. Imm gran pct 0.2 % [facility] Comment: Interpretive Data Percent cell count reference ranges are not reported, since discordance with absolute values may lead to misinterpretation of CBC data. Current Interpretive Data was last revised on 2017. Lymphocyte pct 4.3 % [facility] Comment: Interpretive Data Percent cell count reference ranges are not reported, since discordance with absolute values may lead to misinterpretation of CBC data. Current Interpretive Data was last revised on 2017. Monocyte pct 14.6 % [facility] Comment: Interpretive Data Percent cell count reference ranges are not reported, since discordance with absolute values may lead to misinterpretation of CBC data. Current Interpretive Data was last revised on 2017. Eosinophil pct 0.0 % [facility] Comment: Interpretive Data Percent cell count reference ranges are not reported, since discordance with absolute values may lead to misinterpretation of CBC data. Current Interpretive Data was last revised on 2017. Basophil pct 0.3 % [facility] Comment: Interpretive Data Percent cell count reference ranges are not reported, since discordance with absolute values may lead to misinterpretation of CBC data. Current Interpretive Data was last revised on 2017. Blood specimen (specimen) 04/14/2019 1:45 AM CDT 04/14/2019 2:21 AM CDT Katarina Hall NP LAB BLOOD ORDERABLES Final Res ult Performing Organization Address [facility] Co de Phone Number [address] [address] * (ABNORMAL) Phosphorus (04/14/2019 1:45 AM CDT) Phosphorus, pl 1.6(L) 2.3 - 4.5 mg/dL [facility] Blood specimen (specimen) 04/14/2019 1:45 AM CDT 04/14/2019 2:21 AM CDT Greyson Reeves MD LAB BLOOD ORDERABLES Final R esult Performing Organization Address [facility] Co de Phone Number [address] [address] * Magnesium (04/14/2019 1:45 AM CDT) Magnesium 1.8 1.4 - 2.5 mg/dL [facility] Blood specimen (specimen) 04/14/2019 1:45 AM CDT 04/14/2019 2:21 AM CDT Greyson Reeves MD LAB BLOOD ORDERABLES Final R esult Performing Organization Address [facility] de Phone Number [address] [address] * (ABNORMAL) CBC with auto differential (04/14/2019 1:45 AM CDT) [facility] WBC 6.3 3.8 - 9.9 K/cumm [facility] Hgb 12.2 11.9 - 15.5 g/dL [facility] Hct 37.5 35.6 - 45.5 % [facility] Plt 145(L) 150 - 400 K/cumm [facility] MPV 10.5 9.1 - 12.3 fL [facility] RBC 3.96 3.90 - 5.20 M/cumm [facility] MCV 94.7 81.3 - 96.4 fL [facility] MCH 30.8 27.1 - 33.3 pg [facility] MCHC 32.5 32.3 - 35.7 g/dL [facility] RDW CV 14.2 11.1 - 14.9 % [facility] RDW SD 48.6(H) 35.7 - 48.1 fL [facility] NRBC abs 0.00 0.00 - 0.01 K/cumm [facility] Blood specimen (specimen) 04/14/2019 1:45 AM CDT 04/14/2019 2:21 AM CDT us Greyson Reeves MD LAB BLOOD ORDERABLES Final R esult Performing Organization Address [facility] Co de Phone Number [facility] [address] [place] [address] * aPTT (04/12/2019 9:48 PM CDT) [facility] aPTT 26.3 25.0 - 37.0 sec [facility] Comment: Interpretive Data Therapeutic heparin range:60.0 - 94.0 sec based on correlation with therapeutic heparin activity range of 0.3 -0.7 Units/mL. Current interpretive data was last revised on 2011. Blood specimen (specimen) 04/12/2019 9:48 PM CDT 04/12/2019 10:22 PM CDT Woodrow Cerna MD LAB BLOOD ORDERABLES Final Res ult Performing Organization Address [facility] de Phone Number JASON [address] [address] * Protime-INR (04/12/2019 9:48 PM CDT) Pathologist [facility] [place] PT 11.3 8.6 - 13.0 sec [facility] INR 1.05 0.80 - 1.20 [facility] Comment: Interpretive Data Inpatient therapeutic ranges* Atrial fibrillation ?2.0-3.0 INR Venous thrombo-embolism ?2.0-3.0 INR Bioprosthetic heart valve ?* Mechanical heart valve, bileaflet or tilting disk,aortic position ? 2.0-3.0 INR All other,or bileaflet or tilting disk, in mitral position ? 2.5-3.5 INR *See the pharmacy resource directory (PHRED) for an updated copy of the Tool Book at [email or web address] Current Interpretive Data was last revised 2011. Blood specimen (specimen) 04/12/2019 9:48 PM CDT 04/12/2019 10:22 PM CDT Woodrow Cerna MD LAB BLOOD ORDERABLES Final Res ult Performing Organization Address [facility] de Phone Number JASON BL[facility] [address] [place] [address] * Type and screen (04/12/2019 9:48 PM CDT) Pathologist [facility] [place] Yolande, indirect Negative [facility] ABO Rh AB Positive [facility] Blood specimen (specimen) 04/12/2019 9:48 PM CDT 04/12/2019 10:24 PM CDT Narrative [facility] - 04/12/2019 11:12 PM CDT Has the patient had Daratumumab (Darzalex) in the past 6 months?->Unknown Woodrow Cerna MD LAB BLOOD BANK TEST ORDERABLES Final Result Performing Organization Address [facility] Co de Phone Number [address] [address] * (ABNORMAL) Phosphorus (04/12/2019 9:48 PM CDT) [facility] Phosphorus, pl 1.2(L) 2.3 - 4.5 mg/dL [facility] Blood specimen (specimen) 04/12/2019 9:48 PM CDT 04/12/2019 10:25 PM CDT Woodrow Cerna MD LAB BLOOD ORDERABLES Final Res ult Performing Organization Address [facility] de Phone Number [address] [address] * Magnesium (04/12/2019 9:48 PM CDT) [facility] Magnesium 2.1 1.4 - 2.5 mg/dL [facility] Blood specimen (specimen) 04/12/2019 9:48 PM CDT 04/12/2019 10:25 PM CDT Woodrow Cerna MD LAB BLOOD ORDERABLES Final Res ult Performing Organization Address [facility] Co de Phone Number [address] [address] * (ABNORMAL) CBC without differential (04/12/2019 9:48 PM CDT) [facility] WBC 5.0 3.8 - 9.9 K/cumm [facility] Hgb 13.6 11.9 - 15.5 g/dL [facility] Hct 40.9 35.6 - 45.5 % [facility] Plt 130(L) 150 - 400 K/cumm [facility] MPV 10.3 9.1 - 12.3 fL [facility] RBC 4.49 3.90 - 5.20 M/cumm [facility] MCV 91.1 81.3 - 96.4 fL [facility] MCH 30.3 27.1 - 33.3 pg [facility] MCHC 33.3 32.3 - 35.7 g/dL [facility] RDW CV 14.3 11.1 - 14.9 % [facility] RDW SD 46.8 35.7 - 48.1 fL [facility] NRBC abs 0.00 0.00 - 0.01 K/cumm [facility] Blood specimen (specimen) 04/12/2019 9:48 PM CDT 04/12/2019 10:24 PM CDT us Woodrow Cerna MD LAB BLOOD ORDERABLES Final Res ult [facility] [address] [place] [address] * (ABNORMAL) Basic metabolic panel (04/12/2019 9:48 PM CDT) Sodium 139 135 - 145 mmol/L [facility] Potassium, pl 3.9 3.3 - 4.9 mmol/L [facility] Chloride 108 97 - 110 mmol/L [facility] CO2 24 22 - 32 mmol/L [facility] Anion gap 7 2 - 15 mmol/L [facility] BUN 16 8 - 25 mg/dL [facility] Creatinine 0.83 0.60 - 1.10 mg/dL [facility] Glucose 155 70 - 199 mg/dL [facility] Comment: Interpretive Data Fasting glucose >/= 126 [...] ORDERABLES Final Res ult [facility]ASON BL[facility] [address] [place] [address] * CT Body Outside Consult (04/12/2019 5:22 [...] images may or may not represent the [place] source data set and thus may contain changes that may lower the accuracy of this second-opinion interpretation. Electronically signed by: Chalino Abernathy M.D., MPH Narrative 04/12/2019 1:12 PM CDT EXAMINATION: RADIOLOGY CONSULTATION ON OUTSIDE IMAGING STUDY STUDY INITIALLY PERFORMED: 04/11/2019 at [facility]. TYPE OF STUDY: Multiple computed tomographic [...] IMAGING STUDY STUDY INITIALLY PERFORMED: 04/11/2019 at [facility]. TYPE OF STUDY: Multiple computed tomographic [...] images may or may not represent the [place] source data set and thus may contain changes that may lower the accuracy of this second-opinion interpretation. Electronically signed by: Chalino Abernathy M.D., MPH Woodrow Cerna MD IMG CT PROCEDURES Final Result * (ABNORMAL) Urinalysis, microscopic only (04/12/2019 2:03 AM CDT) WBC, ur 6-10(A) 0 - 5 /HPF [facility] RBC, ur 3-5(A) 0 - 2 /HPF [facility] Epithelial cells, squamous, ur 1-5 0 - 5 /HPF [facility] Bacteria, ur 3+(A) [facility] Mucous, ur Present(A) [facility] Urine 04/12/2019 2:03 AM CDT 04/12/2019 3:34 AM CDT Woodrow Cerna MD LAB URINE ORDERABLES Final Res ult [facility] [address] [place] [address] * Urine culture Urine, bladder (04/12/2019 2:03 AM CDT) Report Final Report: Less than 100,000 colonies/mL (clinically insignificant growth based on current clinical standards) [facility] Organism (CLINICALLY INSIGNIFICANT GROWTH [facility] Urine, bladder 04/12/2019 2: 03 AM CDT 04/12/2019 3:46 AM CDT Narrative JASON BLACK - 04/13/2019 8:58 AM CDT Indications for Culture:->Recent positive UA Testing performed by [facility] ([phone]) Woodrow Cerna MD LAB MICROBIOLOGY - GENERAL ORD ERABLES Final Result [facility] [address] [place] [address] * (ABNORMAL) Urinalysis reflex to microscopic (04/12/2019 2:03 AM CDT) Color, ur Yellow Yellow [facility] Clarity, ur Cloudy(A) Clear [facility] Specific gravity, ur >1.042(H) 1.010 - 1.025 [facility] pH, urine 5 [facility] Protein, ur ql 1+(A) Negative [facility] Glucose, ur ql Negative Negative [facility] Ketones, ur Trace Negative [facility] Bilirubin, ur Negative Negative [facility] Blood, ur Negative Negative [facility] Urobilinogen, ur <2.0 <2.0 mg/dL [facility] Nitrite, ur Negative Negative [facility] Leukocyte esterase, ur Negative Negative [facility] Urine 04/12/2019 2:03 AM CDT 04/12/2019 3:34 [...] tendency for uric acid stone formation. Source: [facility]. Last revised 07-18-2017 Woodrow Cerna MD LAB URINE ORDERABLES Final Res ult Performing Organization Address [facility] Co de Phone Number [address] [address] * Phosphorus (04/12/2019 2:00 AM CDT) Phosphorus, pl 3.3 2.3 - 4.5 mg/dL [facility] Blood specimen (specimen) 04/12/2019 2:00 AM CDT 04/12/2019 3:39 AM CDT Woodrow Cerna MD LAB BLOOD ORDERABLES Final Res ult Performing Organization Address [facility] de Phone Number [address] [address] * Magnesium (04/12/2019 2:00 AM CDT) Magnesium 2.0 1.4 - 2.5 mg/dL [facility] Blood specimen (specimen) 04/12/2019 2:00 AM CDT 04/12/2019 3:39 AM CDT Woodrow Cerna MD LAB BLOOD ORDERABLES Final Res ult Performing Organization Address [facility] de Phone Number [address] [address] * (ABNORMAL) Basic metabolic panel (04/12/2019 2:00 AM CDT) Sodium 141 135 - 145 mmol/L [facility] Potassium, pl 3.1(L) 3.3 - 4.9 mmol/L [facility] Chloride 107 97 - 110 mmol/L [facility] CO2 24 22 - 32 mmol/L [facility] Anion gap 10 2 - 15 mmol/L [facility] BUN 14 8 - 25 mg/dL [facility] Creatinine 0.77 0.60 - 1.10 mg/dL [facility] Glucose 136 70 - 199 mg/dL [facility] Comment: Interpretive Data Fasting glucose >/= 126 [...] 2017. Calcium 8.2(L) 8.5 - 10.3 mg/dL [facility] Blood specimen (specimen) 04/12/2019 2:00 AM CDT 04/12/2019 3:39 AM CDT Woodrow Cerna MD LAB BLOOD ORDERABLES Final Res ult [facility] [address] [place], [place] [id number] * (ABNORMAL) CBC without differential (04/12/2019 2:00 AM CDT) [facility] WBC 7.0 3.8 - 9.9 K/cumm [facility] Hgb 14.3 11.9 - 15.5 g/dL [facility] Hct 42.4 35.6 - 45.5 % [facility] Plt 135(L) 150 - 400 K/cumm [facility] MPV 10.5 9.1 - 12.3 fL [facility] RBC 4.74 3.90 - 5.20 M/cumm [facility] MCV 89.5 81.3 - 96.4 fL [facility] MCH 30.2 27.1 - 33.3 pg [facility] MCHC 33.7 32.3 - 35.7 g/dL [facility] RDW CV 13.6 11.1 - 14.9 % [facility] RDW SD 44.0 35.7 - 48.1 fL [facility] NRBC abs 0.00 0.00 - 0.01 K/cumm [facility] Blood specimen (specimen) 04/12/2019 2:00 AM CDT 04/12/2019 3:39 AM CDT us Woodrow Cerna MD LAB BLOOD ORDERABLES Final Res ult [facility] [address] [place] [address] documented in this encounter Visit Diagnoses Diagnosis [...] (0.2 mg/mL) infusion (premix) Continuous dose: None, BOTTOM BLEACHER dose: Other / 0.1, BOTTOM BLEACHER lockout: 10 Minutes, 1 hour limit: Other [...] 1230, For 1 dose, Indications: hypomagnesemiaIndications:hypomagnese jaycee [facility] 04/14/2019 2:43 PM CDT 2 g magnesium sulfate 2 g/50 mL in water (premix) 2 g 2 g, intravenous, Administer over 60 Minutes, Once, On Lydia 04/16/19 at 0200, For 1 dose [facility] 04/16/2019 6:26 AM CDT 2 g magnesium sulfate 2 g/50 mL in water (premix) 2 g 2 g, intravenous, Administer over 60 Minutes, Once, On Sat04/17/19 at 0815, For 1 dose [facility] 04/17/2019 12:04 PM CDT 2 g magnesium sulfate 2 g/50 mL in water (premix) 2 g 2 g, intravenous, Administer over 60 Minutes, Once, On Sat04/19/19 at 0730, For 1 dose, Indications: hypomagnesemiaIndications:hypomagnese jaycee [facility] 04/19/2019 10:30 AM CDT 2 g magnesium sulfate 2 g/50 mL in water (premix) 2 g 2 g, intravenous, Administer over 60 Minutes, Once, On Sat04/20/19 at 0500, For 1 dose, Indications: hypomagnesemiaIndications:hypomagnese jaycee [facility] 04/20/2019 6:00 AM CDT 2 g oxybutynin [...] intra-catheter, As needed, line care, Starting on [place] 04/12/19 at 0135, Flush volume based on [...] 04/13/2019 documented in this encounter Care Teams [employer] Relationship Specialty Start Date End Date Julio César Briseno MD PCP - General 10/01/16 Eren Cr MD Referring Physician Medical Oncology 11/25/18 Yohana Bowen MD Radiation Oncologist Radiation Oncology 11/25/18 documented as of this encounter
--- OUTSIDE RECORDS SUMMARY | 2024-06-26 02:19 | XMS_ITS | Encounter Summary ---
Author Organization [facility] Healthcare Address [address] [place] [address] Care Team Providers Care Education Spec Name Role Phone Julio César Briseno MD Primary Care Provider [phone] Eren Cr MD Unavailable [phone] Yohana Bowen MD Unavailable Encounter Details Date Type Department Care Team (Late st Contact Info) Description 04/13/2019 4:46 PM CDT - 04/13/2019 7:51 PM CDT Surgery [facility] Operating Room [address] [place] [id number] Greyson Reeves MD [address] [facility] [id number] [place] [address] EXPLORATORY LAPAROTOMY Surgery Details Date/Time Status Location [...] MD Assisting Minor Procedures 1 Case Notes [phone] documented in this encounter Social History Tobacco Use Types Packs/Day Years Used Date Smoking Tobacco: Never Smokeless Tobacco: Never Alcohol Use Standard Drinks/Week Comments Yes 1 (1 standard drink = 0.6 oz pur e alcohol) Comments No Sex and Gender Information Value Date Recorded Sex Assigned at Not on file 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 An NGT was placed to suction, a CBC/CMP/lactic acid were obtained that were within normal limits, and a UA was taken that was positive for WBCs but negative for nitrites. She was transferred to [facility] for a high level of care. Hospital [...] removed 04/17: K 8.1, repeat 3.5. D/c LOCOMOTIVE MECHANIC. POPM, 1 unit of PRBC's for 6./.0, clear liquids, EKG, dc waste picker,POPM, TUMS, Vit D 04/18: D/c epidural. Restart [...] prophylaxis Endocrine follow-up - patient discharged on 41825K Vitamin D Test Results Pending at Discharge: [...] Service Line: Home Health Primary disciplines requested: Alf Home Health Services: Wound/ Ostomy Care Physician [...] does not heal in 1-2 pouch changes [facility] Home Health You should be contacted [...] E) 100-5 mg-unit capsule Generic drug: coenzyme P71-aadaffb E fluticasone propionate 50 mcg/actuation nasal spray [...] AM Yohana Bowen MD CAM Rad Onc [facility] CAM 06/10/2019 4:00 PM POD 8 CAM ONC INF CAM7 [facility] INF 06/16/2019 1:00 PM Oksana Rivas, CECILIA ONC CAM 13C OB Outpatient Follow-Up: Future Appointments Date Time Provider Department Center 05/28/2019 1:30 PM MD Neil Monroe/R [facility] 06/10/2019 7:00 AM Yohana Bowen MD CAM Rad Onc [facility] CAM 06/10/2019 4:00 PM POD 8 CAM ONC INF CAM7 [facility] ON[facility] INF 06/16/2019 1:00 PM Oksana Rivas, CECILIA ONC CAM 13C OB Cosigned by Greyson Reeves MD at 04/24/2019 2:17 PM CDT documented in this encounter Discharge Instructions * Discharge Instr - Other Orders* Priscilla Aguilar RN - 04/15/2019 1:39 PM CDT [facility] Home Health You should be contacted [...] capsuleIndications :supplement Take 1 tablet by mouth anatomic pathology manager before breakfast 07/04/2016 4 cholecalciferol (VITAMIN D-3) 2,000 unit capsule Take 1 capsule (2,000 Units total) by mouth daily 30 capsule 2 04/25/2019 3 clotrimazole-betam ethasone (LOTRISONE) cream Apply 1 Application topically daily as needed (rash) 4 coenzyme J65-widgygg E 100-5 mg-unit capsuleIndications :supplement Take 1 tablet by mouth anatomic pathology manager before breakfast 4 DULoxetine (DENISMBALTA) 30 mg [...] Inpatient Follow Up 04/24/2019 La Schwarz Sheldon [id number] Julio César Briseno MD Admit Date: 04/12/2019 [...] 03/30 120mg SQ. Ca on presentation to [facility] 8.2; following surgical procedure, Ca acutely [...] RN - 04/24/2019 9:56 AM CDT 04/13/19 5619 Discharge Summary Chart reviewed For Medical Necessity Does patient have a planned readmission to hospital planned? No Equipment/Provider Needs Home Provider Services Needs Identified Home Care Agency Information Home Care Agency Type #1: Alf Home Care Agency Name [facility] Home Care Agency Home Care Agency Contact Spoken to Yenny [facility] Home Care Agency Used? Not Needed Discharge Additional Assistance Does the patient need discharge transport arranged? No Patient to discharge to home today with family providing transportation. [facility] HH will follow for ostomy care. * [...] Diabetes Inpatient Follow Up 04/21/2019 [place] [id number] Julio César Briseno MD Admit Date: 04/12/2019 [...] 03/30 120mg SQ. Ca on presentation to [facility] 8.2; following surgical procedure, Ca acutely [...] following modifications:: . She takes vitamin D3 40602 international units daily and has been on [...] Inpatient Follow Up 04/20/2019 La Schwarz Sheldon [id number] Julio César Briseno MD Admit Date: 04/12/2019 [...] 9/23 120mg SQ. Ca on presentation to [facility] 8.2; following surgical procedure, Ca acutely [...] Adult Diet Regular Diet effective now Question: ([facility]) Diet type Answer: Regular 04/18/19 0747 Wt [...] at baseline. Mariusz Trejo MS, RD, LDN [phone] * Janelle Jacques MD - 04/20/2019 5:29 [...] 04/19/2019 5:14 PM CDT Spiritual Care Note Commercial Insurance Underwriter Zafar Wood 04/19/2019 04/19/19 1700 Time Spent Start Time 1530 Stop Time 1545 Time Calculation (min) 15 min Patient Spiritual Assessment Spirituality Assessed Yes Jew Affiliation Mormonism Active in Anabaptism Yes Spiritual Needs Communion Clinical Encounter Type Visited With Patient Response Type Continuing visit Routine Visit Follow-up Continue Visiting Yes Reason for visit Jew needs Referral From Nurse Sacramental Encounters Communion Patient wants communion Communion Given Indicator Yes Outcomes and Interventions Outcomes Minnie affirmation;Sense of peace Interventions Prayer;Active listening;Offer spiritual/religion support * Neto Moss MD - 04/19/2019 [...] M.D. Resident, Pain Management, Department of Anesthesiology [facility], [facility] 04/18/2019 1:19 PM Cosigned [...] to liver, bone metastasis, hypercholesterolemia, hypertension,??admitted to [facility] on 04/17/19 for evaluation and management of [...] mL/hr and remove in few hours) IV LOCOMOTIVE MECHANIC: [] Hydromorphone No basal rate/demand dose__0.1___mg__10___min lock [...] M.D. Resident, Pain Management, Department of Anesthesiology [facility], [facility] 04/18/2019 8:09 AM Cosigned [...] to liver, bone metastasis, hypercholesterolemia, hypertension,??admitted to [facility] on 04/17/19 for evaluation and management of [...] reports that her APAP, duloxetine, gabapentin, hydromorphone LOCOMOTIVE MECHANIC, and epidural provide relief. Denies side effects from her medications. ?? In past 24 hours, advanced to [facility], NGT removed, masterson removed, voiding spontaneously, passing flatus and stool, ambulating. Current medication regimen: APAP 1000 mg PT Q8H MAUREEN, gabapentin 200 mg PT BID, duloxetine 30 mg QD,bupivicaine at 6 ml/hr, hydromorphone LOCOMOTIVE MECHANIC. In past 24 hours, received hydromorphone 1 [...] hold enoxaparin PM dose on 04/17/19 IV LOCOMOTIVE MECHANIC: [] Hydromorphone No basal rate/demand dose__0.1___mg__10___min lock out ___0.6___mg hourly max dose. [x] Discontinue hydromorphone LOCOMOTIVE MECHANIC, transition to oxycodone 5 mg Q4H PRN [...] Inpatient Consult Progress Note 04/17/2019 La Chung [id number] Julio César Briseno MD CONSULTING PROVIDER: Mj [...] EXTERNALLY TO ABDOMEN TWICE DAILY NEEDED coenzyme G34-wwytcsn E (CO Q-10, WITH VIT E,) 100-5 [...] 1,000 mg 1,000 mg feeding tube Q8H [facility] Laura Lopes MD 1,000 mg at 04/14/192028 [...] flush 0.5-20 mL 0.5-20 mL intra-catheter Q8H [facility] Laura Lopes MD 10 mL at 04/14/19 0531 ??? sodium chloride 0.9% flush 0.5-20 mL 0.5-20 mL intra-catheter PRN Laura Lopes MD ??? sodium chloride 0.9% flush 5-10 mL 5-10 mL intra-catheter Q12H [facility] Neto Moss MD 10 mL at 04/14/19 [...] 03/30 120mg SQ. Ca on presentation to [facility] 8.2; following surgical procedure, Ca acutely [...] MD PGY-1 Urology - covering CRS P: [id number] Cosigned by Greyson Reeves MD at 04/17/2019 [...] 03/30 120mg SQ. Ca on presentation to [facility] 8.2; following surgical procedure, Ca acutely [...] Epidural/Local Anesthetic Infusion: [x] No Change IV LOCOMOTIVE MECHANIC: [x] Hydromorphone No basal rate/demand dose__0.1___mg__10___min lock [...] MD PGY-1 Urology - covering CRS P: [id number] Cosigned by Greyson Reeves MD at 04/16/2019 [...] PM Result Value Ref Range Product code B6554Y42 Unit Number [id number] Product Blood Type APOS Dispense Status RETURNED Product code [id number] Unit Number [id number] Product Blood Type APOS Dispense Status RETURNED [...] MD PGY-1 Urology - covering CRS P: [id number] Cosigned by Greyson Reeves MD at 04/15/2019 [...] liver, bone metastasis, hypercholesterolemia, hypertension, admitted to [facility] on 04/17/19 for evaluation and management of [...] been constant. Patient reports that her hydromorphone LOCOMOTIVE MECHANIC provides partial relief. Patient reports that her current epidural is not as effective as an epidural that she previously had (however, her epidural rate was decreased to 3 mL/hr due to hypotension). Denies side effects from hermedications. NPO. Receiving medications PT and IV. Current medication regimen: APAP 1000 mg PT Q8H MAUREEN, gabapentin 200 mg PT BID, bupivicaine at 3 ml/hr, hydromorphone LOCOMOTIVE MECHANIC. VS notable for post-operative tachycardia and hypotension [...] Analgesic Catheter out, tip intact ?? IV LOCOMOTIVE MECHANIC: ?? [x] Hydromorphone [] Morphine [] Fentanyl No basal rate/demand dose__0.1 mg 10___min lock out __0.6____mg hourly max dose. ?? [] Discontinue LOCOMOTIVE MECHANIC [] IV LOCOMOTIVE MECHANIC demand amount to []increase____mg []decrease____mg with____ minute [...] M.D. Resident, Pain Management, Department of Anesthesiology [facility], [facility] 04/15/2019 9:55 AM Cosigned [...] Consult Progress Note 04/15/2019 La Schwarz Sheldon [id number] Julio César Briseno MD CONSULTING PROVIDER: Mj [...] EXTERNALLY TO ABDOMEN TWICE DAILY NEEDED coenzyme V41-weemspd E (CO Q-10, WITH VIT E,) 100-5 [...] 1,000 mg 1,000 mg feeding tube Q8H [facility] Laura Lopes MD 1,000 mg at 04/14/192028 [...] flush 0.5-20 mL 0.5-20 mL intra-catheter Q8H [facility] Laura Lopes MD 10 mL at 04/14/19 [...] 03/30 120mg SQ. Ca on presentation to [facility] 8.2; following surgical procedure, Ca acutely [...] min Patient Spiritual Assessment Spirituality Assessed Yes Jew Affiliation Mormonism Active in Anabaptism Yes Clinical Encounter Type Visited With Patient [...] occasionally subsides. Patient reports that her hydromorphone LOCOMOTIVE MECHANIC provides partial relief. Patient reports that her current epidural is not as effective as an epidural that shepreviously had (however, her epidural rate was decreased to 3 mL/hr due to hypotension). Denies side effects from her medications. Current medication regimen: APAP 1000 mg PT Q8H MAUREEN, gabapentin 200 mg PT BID, bupivicaine at 3 ml/hr, hydromorphone LOCOMOTIVE MECHANIC Laboratory studies notable for HH 10.1/30.2, plt [...] Analgesic Catheter out, tip intact ?? IV LOCOMOTIVE MECHANIC: ?? [x] Hydromorphone [] Morphine [] Fentanyl No basal rate/demand dose__0.1 mg 10___min lock out __0.6____mg hourly max dose. ?? [] Discontinue LOCOMOTIVE MECHANIC [] IV LOCOMOTIVE MECHANIC demand amount to []increase____mg []decrease____mg with____ minute [...] M.D. Resident, Pain Management, Department of Anesthesiology [facility], [facility] 04/14/2019 2:26 PM Cosigned [...] PM Result Value Ref Range Product code [id number] Unit Number [id number] Product Blood Type APOS Dispense Status CROSSMATCHED Product code [id number] Unit Number [id number] Product Blood Type APOS Dispense Status CROSSMATCHED [...] MD PGY-1 Urology - covering CRS P: [id number] Cosigned by Greyson Reeves MD at 04/15/2019 8:16 AM CDT * Yovany Alvarez MD - 04/13/2019 11:29 PM CDT Post-Op Check Note La Schwarz Sheldon [id number] Pt returns from the OR 04/13/2019 s/p [...] CDT 04/13/19 0827 Referral Data Referral Source Electronic Scanner Operator Referral Reason Discharge Planning County Information County of Residence [place], [place] Patient Information Primary Caregiver Self Support System Spouse/Significant Other;Children Support system contact info (name, phone, availablity) , Alejo Chung ; daughter Caroline Chung Prior Level of Functioning Durable Medical Equipment None Living Arrangement House;Lives with someone Behavior Oriented Potential Discharge Needs Anticipated discharge level of care Return Home Communications Fiduciary Responsibility Patient/Designated decision maker was informed of [facility] fiduciary relationship as necessary Impression: Patient [...] acute events overnight NGT in place to [facility] Got enemas for preparation for colonoscopy [...] MD PGY-1 Urology - covering CRS P: [id number] Cosigned by Greyson Reeves MD at 04/13/2019 [...] Planning Preoperative Evaluation Record Inpatient Preoperative Evaluation ([facility]) Date: 04/13/19 Anesthesia Evaluation Procedure(s): EXPLORATORY [...] a month -- -- Historical Provider, coenzyme O76-bbmbjmp E (CO Q-10, WITH VIT E,) 100-5 [...] Urgent Care and was sent to the [facility] ED where a CT scan was performed that demonstrated a possible partial large bowel obstruction. An NGT was placed to suction, a CBC/CMP/lactic acid were obtained that were within normal limits, and a UA was taken that was positive for WBCs but negative for nitrites. She was transferred to [facility] for a high level of care. On [...] 4 gram packet clotrimazole-betamethasone (LOTRISONE) cream coenzyme A88-xnaijhb E (CO Q-10, WITH VIT E,) 100-5 [...] upload imaging - nominate OSH CT for [facility] radiology reading - obtain AM labs (CBC, [...] = Cosigned By Initials Name EK Nica Smith, [place] CB Leanne Bach RN Vascular Access Documentation [...] locate and cannulate vein -CB Lot #: [id number] -CB Expiration Date: 02/05/20 -CB Trimmed Length [...] 02/18 followedby Octretotide who was admitted to [facility] after presenting with cramping abdominal pain, nausea, and em esis since Saturday of last week that progressively continued to worsen. She presented to [place] where imaging was concerning for a colonic obstruction with a focal transition point at the level of the rectosigmoid junction with stable disease in the liver. She was transferred to [facility] for further care and underwent an ex [...] and has 4 children. She lives in [place] in [place]. She is currently retired FAMILY HISTORY: Her [...] a month at Unknown time ??? coenzyme L37-xetukjq E (CO Q-10, WITH VIT E,) 100-5 [...] 1,000 mg, 1,000 mg, feeding tube, Q8H [facility], Laura Lopes MD ??? bupivacaine preservative free [...] will arrange for follow up at discharge. [phone] Cosigned by Eren Cr Jr., MD at 04/14/2019 3:19 PM CDT Associated attestation - Eren Cr MD - 04/14/2019 3:19 PM CDT Images from the original note were not included. [employer] Attestation La Chung : 1950 DATE OF VISIT: 04/14/19 I have seen and examined the patient on 04/14/2019 with the Nurse Practitioner and I have reviewed the [employer] note and agree with the findings documented [...] PM Result Value Ref Range Product code X9583F63 Unit Number [id number] Product Blood Type APOS Dispense Status CROSSMATCHED Product code H5992B75 Unit Number [id number] Product Blood Type APOS Dispense Status CROSSMATCHED [...] the plan of care. Eren Cr MD Manager Mental Health [facility] * Mj Chiu MD [...] bloody emesis, urinary symptoms. 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 An element of diverticulitis is not excluded, given that there are some adjacent diverticula. NGT was placed to suction and she was transferred to [facility] for further management. On admission to [place], patient was seen by GI with plans [...] from surgical procedure currently managed with Dilaudid LOCOMOTIVE MECHANIC. Past medical history: Past Medical History: Diagnosis [...] EXTERNALLY TO ABDOMEN TWICE DAILY NEEDED coenzyme E91-zqojvjr E (CO Q-10, WITH VIT E,) 100-5 [...] 1,000 mg 1,000 mg feeding tube Q8H [facility] Laura Lopes MD ??? bupivacaine preservative free [...] 03/30 120mg SQ. Ca on presentation to [facility] 8.2; following surgical procedure, Ca acutely [...] symptoms. Given her symptoms, she presented to [facility] ED where a CT scan [...] and the patietn was subsequently transferred to [facility] for further management. Of note, patient was [...] a month at Unknown time ??? coenzyme K19-soefqqh E (CO Q-10, WITH VIT E,) 100-5 [...] file Gets together: Not on file Attends religion service: Not on file Active member of [...] and the patietn was subsequently transferred to [facility] for further management. - continue NGT to [...] via the central GI phone tree at [phone], option 3. From 5pm to 7:30am Saturday through Saturday, and from Saturday 5pm to Saturday 7:30am, the certified professional ergonomist GI fellow covering the Biliary service can be reached at [phone]. Alex Hutton MD Gastroenterology Fellow Cosigned by [...] Pouch Supplies: at bedside Pouch Type: Coloplast Shona Flex 2 piece Drainage: Not to gravity [...] concerns please contact the Wound/Ostomy department at [phone] Pamela Elizabeth RN * Pamela Elizabeth RN [...] concerns please contact the Wound/Ostomy department at [phone] Pamela Elizabeth RN * Pamela Elizabeth RN [...] concerns please contact the Wound/Ostomy department at [phone] Pamela Elizabeth RN * Mayela Hathaway RN [...] concerns please contact the Wound/Ostomy department at [phone] Pamela Elizabeth RN * Pamela Elizabeth RN [...] concerns please contact the Wound/Ostomy department at [phone] Pamela Elizabeth RN * Pamela Elizabeth RN [...] concerns please contact the Wound/Ostomy department at [phone] Pamela Elizabeth RN documented in this encounter Miscellaneous Notes * Plan of Care - Yenny Villegas RN - 04/24/2019 4:07 PM CDT Referral received for SN. HH services arranged through [facility]- [place] office ([phone]). [facility] Bank Credit Card Collection Clerk contact numbers; [phone] or [phone]. * Plan of Care - Nichole Nash [...] 03/30 120mg SQ. Ca on presentation to [facility] 8.2; following surgical procedure, Ca acutely [...] Endocrine Inpatient Follow Up 04/24/2019 [place]ung [id number] Julio César Briseno MD Admit Date: 04/12/2019 [...] CDT Endocrine Diabetes Inpatient Follow Up? 04/23/2019?La Chung?[id number]?Greyson Reeves MD ?? Admit Date:??04/12/2019?Length of Stay:??11 [...] CDT * Plan of Care - Darling Lund OT - 04/23/2019 12:33 PM CDT [...] CDT Endocrine Diabetes Inpatient Follow Up? 04/22/2019?La Chung?[id number]? Greyson Reeves MD ?? Admit Date:??04/12/2019?Length of [...] chief complaint of abdominal pain and vomiting.?? Referrals:??[facility] to follow Support:??, Alejo and two [...] 03/30 120mg SQ. Ca on presentation to [facility] 8.2; following surgical procedure, Ca acutely [...] Inpatient Follow Up 04/21/2019 La Schwarz Sheldon [id number] Julio César Briseno MD Admit Date: 04/12/2019 [...] Inpatient Follow Up ?? 04/20/2019 La Chung [id number] Julio César Briseno MD ?? Admit Date: [...] Diabetes Inpatient Follow Up 04/20/2019 [place] Chung [id number] Julio César Briseno MD Admit Date: 04/12/2019 [...] 04/14/2019 * Hospital Course - Katarina Hall, [employer] - 04/20/2019 3:04 PM CDT 68 year [...] removed 04/17: K 8.1, repeat 3.5. D/c LOCOMOTIVE MECHANIC. POPM, 1 unit of PRBC's for 6.9/21.0, clear liquids, EKG, dc waste picker,POPM, TUMS, Vit D 04/18: D/c epidural. Restart Lovenox. BMP Q12h. Restart statin+BP meds. SLIV. 04/19: Ditropan TID for OAB. KCl 60mEq 04/20: KCl 40mEq. Pt refusing rehab, pouching issues * Plan of Care - Priscilla Aguilar RN - 04/20/2019 1:12 PM CDT Report per DCA:??ostomy teaching Impression:??Patient is a??68 y.o.??female??with chief complaint of abdominal pain and vomiting.?? Referrals:??[facility] to follow Support:??, Alejo and two [...] assistance, please call the on-call weekend case management social worker at #[phone]. Thank you! * Plan of Care - [...] pain control with the use of her LOCOMOTIVE MECHANIC. Patient will get labs draws regularly. * [...] Bette Salazar RN, BSN, MS, CCDS Clinical Tearoom Hostess [phone] * Plan of Care - Priscilla Aguilar RN - 04/17/2019 12:50 PM CDT Report per DCAM:??electrolyte replacement, unit transfused, EKG, AM labs Impression: Patient is a??68 y.o.??female??with chief complaint of abdominal pain and vomiting.?? Referrals:??[facility] to follow Support:??, Alejo and two [...] 03/30 120mg SQ. Ca on presentation to [facility] 8.2; following surgical procedure, Ca acutely [...] is being adequately controlled. Patient has a LOCOMOTIVE MECHANIC and epidural. Patient is up ad mayela [...] times, advance diet Summary: Patient educated on LOCOMOTIVE MECHANIC and button pushing. She has ambulated in [...] will continue to follow. Jessica Rice LCSW [phone] * Plan of Care - Kathy Zuleta [...] into 80's while sleeping, pain controlled with LOCOMOTIVE MECHANIC and epidural, green output from NG tube, [...] vomiting. Referrals: referral sent through [facility] to [facility] HH Support: , Alejo and two [...] her pain has been controlled with the LOCOMOTIVE MECHANIC pump.The patient ambulated in the room and [...] 03/30 120mg SQ. Ca on presentation to [facility] 8.2; following surgical procedure, Ca acutely [...] moderate assistance, NG intact with green output, LOCOMOTIVE MECHANIC and epidural for pain, drainage shadowing from surgical incision-dressing still intact, will continue to monitor. * Op Note - Greyson Reeves MD - 04/13/2019 4:46 PM CDT SURGEON Greyson Reeves MD FIRST STAFF FIELD ENGINEER Laura Walker PREOPERATIVE DIAGNOSIS Large bowel obstruction [...] Anesthesiologist: Shawn Green MD; Thong Abraham MD AVIATION MEDICINE SPECIALIST: Dm Richardson CRNA; Janeen Weston CRNA Casting Room Operator: Adelita Barba RN; Thais Julio RN; Susana Benito RN Casting Room Operator Relief: Bebe Claire RN Scrub Relief: Lucita [...] condition. Epidural catheter Perifix with product code [id number] ref [id number] is MRI compatible Luis M Bright MD [...] CDT Large bowel obstruction (CMS/HCC) Case Notes [phone] EXPLORATORY LAPAROTOMY 04/13/2019 3:23 PM CDT Large bowel obstruction (CMS/HCC) Case Notes [phone] APTT Timed 04/12/2019 9:48 PM CDT PROTIME-INR [...] Ionized 5.15(H) 4.50 - 5.10 mg/dL [facility] Blood specimen (specimen) 04/24/2019 5:42 AM CDT 04/24/2019 6:14 AM CDT us Greyson Reeves MD LAB BLOOD ORDERABLES Final R [place] [address] * Basic metabolic panel (04/23/2019 8:19 PM CDT) Sodium 136 135 - 145 mmol/L [facility] Potassium, pl 3.9 3.3 - 4.9 mmol/L [facility] Chloride 100 97 - 110 mmol/L [facility] CO2 29 22 - 32 mmol/L [facility] Anion gap 7 2 - 15 mmol/L [facility] BUN 8 8 - 25 mg/dL [facility] Creatinine 0.76 0.60 - 1.10 mg/dL [facility] Glucose 145 70 - 199 mg/dL [facility] 2017. Calcium 9.4 8.5 - 10.3 mg/dL [facility] Blood specimen (specimen) 04/23/2019 8:19 PM CDT 04/23/2019 8:49 PM CDT Greyson Reeves MD LAB BLOOD ORDERABLES Final R esult Performing Organization Address City/[facility]/ZIP Co de Phone [place] [address] * Calcium, ionized (04/23/2019 8:19 PM CDT) Calcium, Ionized 4.92 4.50 - 5.10 mg/dL [facility] Blood specimen (specimen) 04/23/2019 8:19 PM CDT 04/23/2019 8:57 PM CDT Greyson Reeves MD LAB BLOOD ORDERABLES Final R esult Performing Organization Address City/[facility] Co de Phone Number JASON [facility] [address] [place] [address] * Calcium, ionized (04/23/2019 5:52 AM CDT) Calcium, Ionized 4.86 4.50 - 5.10 mg/dL [facility] Blood specimen (specimen) 04/23/2019 5:52 AM CDT 04/23/2019 6:43 AM CDT Greyson Reeves MD LAB BLOOD ORDERABLES Final R esult Performing Organization Address [facility] de Phone Number [address] [address] * (ABNORMAL) Basic metabolic panel (04/22/2019 9:59 PM CDT) Pathologist [facility] Sodium 135 135 - 145 mmol/L [facility] Potassium, pl 3.7 3.3 - 4.9 mmol/L [facility] Chloride 99 97 - 110 mmol/L [facility] CO2 28 22 - 32 mmol/L [facility] Anion gap 8 2 - 15 mmol/L [facility] BUN 6(L) 8 - 25 mg/dL [facility] Creatinine 0.79 0.60 - 1.10 mg/dL [facility] Glucose 127 70 - 199 mg/dL [facility] 2017. Calcium 9.2 8.5 - 10.3 mg/dL [facility] Blood specimen (specimen) 04/22/2019 9:59 PM CDT 04/22/2019 10:54 PM CDT Greyson Reeves MD LAB BLOOD ORDERABLES Final R esult Performing Organization Address [facility] Co de Phone Number [address] [address] * (ABNORMAL) Calcium, ionized (04/22/2019 6:27 PM CDT) Calcium, Ionized 5.11(H) 4.50 - 5.10 mg/dL [facility] Blood specimen (specimen) 04/22/2019 6:27 PM CDT 04/22/2019 7:29 PM CDT us Greyson Reeves MD LAB BLOOD ORDERABLES Final R esult Performing Organization Address [facility] Co de Phone Number [address] [address] * Calcium, ionized (04/22/2019 5:56 AM CDT) Calcium, Ionized 5.04 4.50 - 5.10 mg/dL [facility] Blood specimen (specimen) 04/22/2019 5:56 AM CDT 04/22/2019 6:13 AM CDT Greyson Reeves MD LAB BLOOD ORDERABLES Final R esult Performing Organization Address [facility] Co de Phone Number [address] [address] * (ABNORMAL) Basic metabolic panel (04/21/2019 10:10 PM CDT) Sodium 139 135 - 145 mmol/L [facility] Potassium, pl 3.4 3.3 - 4.9 mmol/L [facility] Chloride 103 97 - 110 mmol/L [facility] CO2 30 22 - 32 mmol/L [facility] Anion gap 6 2 - 15 mmol/L [facility] BUN 5(L) 8 - 25 mg/dL [facility] Creatinine 0.70 0.60 - 1.10 mg/dL [facility] Glucose 142 70 - 199 mg/dL [facility] 2017. Calcium 9.3 8.5 - 10.3 mg/dL [facility] Blood specimen (specimen) 04/21/2019 10:10 PM CDT 04/21/2019 10:41 PM CDT Greyson Reeves MD LAB BLOOD ORDERABLES Final R esult Performing Organization Address [facility] Co de Phone Number [address] [address] * Calcium, ionized (04/21/2019 6:18 PM CDT) Calcium, Ionized 5.00 4.50 - 5.10 mg/dL [facility] Blood specimen (specimen) 04/21/2019 6:18 PM CDT 04/21/2019 6:50 PM CDT Greyson Reeves MD LAB BLOOD ORDERABLES Final R esult Performing Organization Address [facility] Co de Phone Number [address] [address] * Calcium, ionized (04/21/2019 5:48 AM CDT) Calcium, Ionized 4.95 4.50 - 5.10 mg/dL [facility] Blood specimen (specimen) 04/21/2019 5:48 AM CDT 04/21/2019 6:24 AM CDT Greyson Reeves MD LAB BLOOD ORDERABLES Final R esult Performing Organization Address [facility] de Phone Number [address] [address] * Vitamin D 25 hydroxy (04/20/2019 10:22 PM CDT) [facility] Vitamin D 25-OH 34 30 - 80 ng/mL [facility] Blood specimen (specimen) 04/20/2019 10:22 PM CDT 04/20/2019 11:31 PM CDT Greyson Reeves MD LAB BLOOD ORDERABLES Final R esult Performing Organization Address [facility] de Phone Number [address] [address] * (ABNORMAL) Basic metabolic panel (04/20/2019 10:22 PM CDT) [facility] Sodium 140 135 - 145 mmol/L [facility] Potassium, pl 3.1(L) 3.3 - 4.9 mmol/L [facility] Chloride 104 97 - 110 mmol/L [facility] CO2 28 22 - 32 mmol/L [facility] Anion gap 8 2 - 15 mmol/L [facility] BUN 6(L) 8 - 25 mg/dL [facility] Creatinine 0.66 0.60 - 1.10 mg/dL [facility] Glucose 128 70 - 199 mg/dL [facility] 2017. Calcium 9.2 8.5 - 10.3 mg/dL [facility] Blood specimen (specimen) 04/20/2019 10:22 PM CDT 04/20/2019 11:31 PM CDT Greyson Reeves MD LAB BLOOD ORDERABLES Final R esult Performing Organization Address [facility] Co de Phone Number [address] [phone] * Phosphorus (04/20/2019 10:22 PM CDT) Phosphorus, pl 2.6 2.3 - 4.5 mg/dL [facility] Blood specimen (specimen) 04/20/2019 10:22 PM CDT 04/20/2019 11:31 PM CDT Greyson Reeves MD LAB BLOOD ORDERABLES Final R esult Performing Organization Address [facility] de Phone Number [address] [phone] * Magnesium (04/20/2019 10:22 PM CDT) Magnesium 1.8 1.4 - 2.5 mg/dL [facility] Blood specimen (specimen) 04/20/2019 10:22 PM CDT 04/20/2019 11:31 PM CDT Greyson Reeves MD LAB BLOOD ORDERABLES Final R esult Performing Organization Address [facility] Co de Phone Number [address] [phone] * (ABNORMAL) Potassium, whole blood (04/20/2019 5:39 PM CDT) Potassium, bld 3.2(L) 3.3 - 4.9 mmol/L [facility] Blood specimen (specimen) 04/20/2019 5:39 PM CDT 04/20/2019 6:13 PM CDT Greyson Reeves MD LAB BLOOD ORDERABLES Final R esult Performing Organization Address [facility] Co de Phone Number [address] [address] * (ABNORMAL) Calcium, ionized (04/20/2019 5:39 PM CDT) Calcium, Ionized 5.16(H) 4.50 - 5.10 mg/dL [facility] Blood specimen (specimen) 04/20/2019 5:39 PM CDT 04/20/2019 6:13 PM CDT Greyson Reeves MD LAB BLOOD ORDERABLES Final R esult Performing Organization Address [facility] Co de Phone Number [address] [address] * (ABNORMAL) Albumin (04/20/2019 6:07 AM CDT) [facility] Albumin 2.9(L) 3.5 - 5.0 g/dL [facility] Blood specimen (specimen) 04/20/2019 6:07 AM CDT 04/20/2019 6:44 AM CDT Greyson Reeves MD LAB BLOOD ORDERABLES Final R esult Performing Organization Address [facility] Co de Phone Number [address] [phone] * (ABNORMAL) Basic metabolic panel (04/20/2019 6:07 AM CDT) Pathologist [facility] Sodium 141 135 - 145 mmol/L [facility] Potassium, pl 3.4 3.3 - 4.9 mmol/L [facility] Chloride 105 97 - 110 mmol/L [facility] CO2 29 22 - 32 mmol/L [facility] Anion gap 7 2 - 15 mmol/L [facility] BUN 4(L) 8 - 25 mg/dL [facility] Creatinine 0.60 0.60 - 1.10 mg/dL [facility] Glucose 110 70 - 199 mg/dL [facility] 2017. Calcium 8.9 8.5 - 10.3 mg/dL [facility] Blood specimen (specimen) 04/20/2019 6:07 AM CDT 04/20/2019 6:44 AM CDT Greyson Reeves MD LAB BLOOD ORDERABLES Final R esult Performing Organization Address [facility] Co de Phone Number [address] [address] * Calcium, ionized (04/20/2019 6:07 AM CDT) Calcium, Ionized 4.93 4.50 - 5.10 mg/dL [facility] Blood specimen (specimen) 04/20/2019 6:07 AM CDT 04/20/2019 6:44 AM CDT Greyson Reeves MD LAB BLOOD ORDERABLES Final R esult Performing Organization Address [facility] Co de Phone Number [address] [address] * (ABNORMAL) CBC without differential (04/19/2019 10:10 PM CDT) WBC 5.6 3.8 - 9.9 K/cumm [facility] Hgb 10.0(L) 11.9 - 15.5 g/dL [facility] Hct 29.5(L) 35.6 - 45.5 % [facility] Plt 137(L) 150 - 400 K/cumm [facility] MPV 10.9 9.1 - 12.3 fL [facility] RBC 3.35(L) 3.90 - 5.20 M/cumm [facility] MCV 88.1 81.3 - 96.4 fL [facility] MCH 29.9 27.1 - 33.3 pg [facility] MCHC 33.9 32.3 - 35.7 g/dL [facility] RDW CV 15.3(H) 11.1 - 14.9 % [facility] RDW SD 49.1(H) 35.7 - 48.1 fL [facility] NRBC abs 0.00 0.00 - 0.01 K/cumm [facility] Blood specimen (specimen) 04/19/2019 10:10 PM CDT 04/19/2019 10:44 PM CDT Greyson Reeves MD LAB BLOOD ORDERABLES Final R esult Performing Organization Address [facility] Co de Phone Number [address] [address] * Phosphorus (04/19/2019 10:10 PM CDT) [facility] Phosphorus, pl 2.4 2.3 - 4.5 mg/dL [facility] Blood specimen (specimen) 04/19/2019 10:10 PM CDT 04/19/2019 10:44 PM CDT Greyson Reeves MD LAB BLOOD ORDERABLES Final R esult Performing Organization Address [facility] Co de Phone Number [address] [address] * Magnesium (04/19/2019 10:10 PM CDT) Magnesium 1.7 1.4 - 2.5 mg/dL [facility] Blood specimen (specimen) 04/19/2019 10:10 PM CDT 04/19/2019 10:44 PM CDT Greyson Reeves MD LAB BLOOD ORDERABLES Final R esult Performing Organization Address City/[facility]/ZIP Co de Phone Number [facility] [address] [place] [address] * (ABNORMAL) Basic metabolic panel (04/19/2019 6:14 PM CDT) Pathologist [facility] Sodium 138 135 - 145 mmol/L [facility] Potassium, pl 2.9(L) 3.3 - 4.9 mmol/L [facility] Chloride 102 97 - 110 mmol/L [facility] CO2 28 22 - 32 mmol/L [facility] Anion gap 8 2 - 15 mmol/L [facility] BUN 4(L) 8 - 25 mg/dL [facility] Creatinine 0.56(L) 0.60 - 1.10 mg/dL [facility] Glucose 106 70 - 199 mg/dL [facility] 2017. Calcium 9.4 8.5 - 10.3 mg/dL [facility] Blood specimen (specimen) 04/19/2019 6:14 PM CDT 04/19/2019 6:49 PM CDT Greyson Reeves MD LAB BLOOD ORDERABLES Final R esult Performing Organization Address [facility]/ZIP Co de Phone Number [facility] [address] [place] [address] * Calcium, ionized (04/19/2019 6:14 PM CDT) Calcium, Ionized 5.04 4.50 - 5.10 mg/dL [facility] Blood specimen (specimen) 04/19/2019 6:14 PM CDT 04/19/2019 6:49 PM CDT Greyson Reeves MD LAB BLOOD ORDERABLES Final R esult JASON BLACK [address] [place] [address] * (ABNORMAL) Basic metabolic panel (04/19/2019 6:37 AM CDT) Pathologist [facility] Sodium 143 135 - 145 mmol/L [facility] Potassium, pl 3.4 3.3 - 4.9 mmol/L [facility] Chloride 106 97 - 110 mmol/L [facility] CO2 28 22 - 32 mmol/L [facility] Anion gap 9 2 - 15 mmol/L [facility] BUN 2(L) 8 - 25 mg/dL [facility] Creatinine 0.56(L) 0.60 - 1.10 mg/dL [facility] Glucose 113 70 - 199 mg/dL [facility] 2017. Calcium 9.4 8.5 - 10.3 mg/dL [facility] Blood specimen (specimen) 04/19/2019 6:37 AM CDT 04/19/2019 7:44 AM CDT Greyson Reeves MD LAB BLOOD ORDERABLES Final R esult Performing Organization Address [facility] Co de Phone Number [address] [address] * Calcium, ionized (04/19/2019 6:37 AM CDT) Calcium, Ionized 4.88 4.50 - 5.10 mg/dL [facility] Blood specimen (specimen) 04/19/2019 6:37 AM CDT 04/19/2019 7:44 AM CDT Greyson Reeves MD LAB BLOOD ORDERABLES Final R esult Performing Organization Address [facility] Phone Number [address] [address] * (ABNORMAL) Phosphorus (04/18/2019 9:43 PM CDT) Phosphorus, pl 1.9(L) 2.3 - 4.5 mg/dL [facility] Blood specimen (specimen) 04/18/2019 9:43 PM CDT 04/18/2019 10:44 PM CDT Greyson Reeves MD LAB BLOOD ORDERABLES Final R esult Performing Organization Address [facility] de Phone Number [address] [address] * Magnesium (04/18/2019 9:43 PM CDT) Magnesium 1.6 1.4 - 2.5 mg/dL [facility] Blood specimen (specimen) 04/18/2019 9:43 PM CDT 04/18/2019 10:44 PM CDT Greyson Reeves MD LAB BLOOD ORDERABLES Final R esult Performing Organization Address [facility] Co de Phone Number [facility] [address] [place] [address] * (ABNORMAL) CBC without differential (04/18/2019 9:43 PM CDT) [facility] WBC 5.2 3.8 - 9.9 K/cumm [facility] Hgb 9.4(L) 11.9 - 15.5 g/dL [facility] Hct 28.5(L) 35.6 - 45.5 % [facility] Plt 121(L) 150 - 400 K/cumm [facility] MPV 11.1 9.1 - 12.3 fL [facility] RBC 3.25(L) 3.90 - 5.20 M/cumm [facility] MCV 87.7 81.3 - 96.4 fL [facility] MCH 28.9 27.1 - 33.3 pg [facility] MCHC 33.0 32.3 - 35.7 g/dL [facility] RDW CV 15.5(H) 11.1 - 14.9 % [facility] RDW SD 49.4(H) 35.7 - 48.1 fL [facility] NRBC abs 0.00 0.00 - 0.01 K/cumm [facility] Blood specimen (specimen) 04/18/2019 9:43 PM CDT 04/18/2019 10:44 PM CDT Greyson Reeves MD LAB BLOOD ORDERABLES Final R esult JASON BLACK [address] [place] [address] * (ABNORMAL) Basic metabolic panel (04/18/2019 6:33 PM CDT) [facility] Sodium 141 135 - 145 mmol/L [facility] Potassium, pl 2.8(L) 3.3 - 4.9 mmol/L [facility] Chloride 107 97 - 110 mmol/L [facility] CO2 26 22 - 32 mmol/L [facility] Anion gap 8 2 - 15 mmol/L [facility] BUN 3(L) 8 - 25 mg/dL [facility] Creatinine 0.53(L) 0.60 - 1.10 mg/dL [facility] Glucose 125 70 - 199 mg/dL [facility] 2017. Calcium 8.4(L) 8.5 - 10.3 mg/dL [facility] Blood specimen (specimen) 04/18/2019 6:33 PM CDT 04/18/2019 7:25 PM CDT Greyson Reeves MD LAB BLOOD ORDERABLES Final R esult Performing Organization Address [facility] Co de Phone Number [address] [address] * Calcium, ionized (04/18/2019 6:33 PM CDT) Pathologist [facility] Calcium, Ionized 4.83 4.50 - 5.10 mg/dL [facility] Blood specimen (specimen) 04/18/2019 6:33 PM CDT 04/18/2019 7:25 PM CDT Greyson Reeves MD LAB BLOOD ORDERABLES Final R esult Performing Organization Address [facility] Co de Phone Number [address] [address] * (ABNORMAL) Basic metabolic panel (04/18/2019 6:42 AM CDT) Pathologist [facility] Sodium 142 135 - 145 mmol/L [facility] Potassium, pl 3.1(L) 3.3 - 4.9 mmol/L [facility] Chloride 110 97 - 110 mmol/L [facility] CO2 24 22 - 32 mmol/L [facility] Anion gap 8 2 - 15 mmol/L [facility] BUN 3(L) 8 - 25 mg/dL [facility] Creatinine 0.54(L) 0.60 - 1.10 mg/dL [facility] Glucose 119 70 - 199 mg/dL [facility] 2017. Calcium 8.5 8.5 - 10.3 mg/dL [facility] Blood specimen (specimen) 04/18/2019 6:42 AM CDT 04/18/2019 8:08 AM CDT Greyson Reeves MD LAB BLOOD ORDERABLES Final R esult Performing Organization Address [facility] de Phone Number [address] [address] * Calcium, ionized (04/18/2019 6:42 AM CDT) [facility] Calcium, Ionized 4.90 4.50 - 5.10 mg/dL [facility] Blood specimen (specimen) 04/18/2019 6:42 AM CDT 04/18/2019 8:08 AM CDT Greyson Reeves MD LAB BLOOD ORDERABLES Final R esult Performing Organization Address [facility] de Phone Number [address] [address] * (ABNORMAL) Differential, auto (04/17/2019 10:47 PM CDT) Neutrophil abs 3.3 1.7 - 6.5 K/cumm [facility] Imm gran abs 0.1 0.0 - 0.1 K/cumm [facility] Lymphocyte abs 0.2(L) 0.8 - 3.3 K/cumm [facility] Monocyte abs 0.5 0.2 - 0.8 K/cumm [facility] Eosinophil abs 0.1 0.0 - 0.5 K/cumm [facility] Basophil abs 0.0 0.0 - 0.1 K/cumm [facility] Neutrophil pct 78.1 % [facility] Comment: Interpretive Data Percent cell count reference ranges are not reported, since discordance with absolute values may lead to misinterpretation of CBC data. Current Interpretive Data was last revised on 2017. Imm gran pct 2.4 % [facility] Comment: Interpretive Data Percent cell count reference ranges are not reported, since discordance with absolute values may lead to misinterpretation of CBC data. Current Interpretive Data was last revised on 2017. Lymphocyte pct 4.8 % [facility] Comment: Interpretive Data Percent cell count reference ranges are not reported, since discordance with absolute values may lead to misinterpretation of CBC data. Current Interpretive Data was last revised on 2017. Monocyte pct 11.8 % [facility] Comment: Interpretive Data Percent cell count reference ranges are not reported, since discordance with absolute values may lead to misinterpretation of CBC data. Current Interpretive Data was last revised on 2017. Eosinophil pct 2.4 % [facility] Comment: Interpretive Data Percent cell count reference ranges are not reported, since discordance with absolute values may lead to misinterpretation of CBC data. Current Interpretive Data was last revised on 2017. Basophil pct 0.5 % [facility] Comment: Interpretive Data Percent cell count reference ranges are not reported, since discordance with absolute values may lead to misinterpretation of CBC data. Current Interpretive Data was last revised on 2017. Blood specimen (specimen) 04/17/2019 10:47 PM CDT 04/17/2019 11:52 PM CDT Katarina Hall [employer] LAB BLOOD ORDERABLES Final Res ult Performing Organization Address [facility] Co de Phone Number [address] [address] * (ABNORMAL) Phosphorus (04/17/2019 10:47 PM CDT) Pathologist [facility] Phosphorus, pl 1.4(L) 2.3 - 4.5 mg/dL [facility] Blood specimen (specimen) 04/17/2019 10:47 PM CDT 04/17/2019 11:52 PM CDT Greyson Reeves MD LAB BLOOD ORDERABLES Final R esult Performing Organization Address [facility] Co de Phone Number [address] [address] * Magnesium (04/17/2019 10:47 PM CDT) [facility] Magnesium 2.0 1.4 - 2.5 mg/dL [facility] Blood specimen (specimen) 04/17/2019 10:47 PM CDT 04/17/2019 11:52 PM CDT Greyson Reeves MD LAB BLOOD ORDERABLES Final R esult Performing Organization Address [facility] Co de Phone Number [address] [address] * (ABNORMAL) CBC with auto differential (04/17/2019 10:47 PM CDT) [facility] WBC 4.2 3.8 - 9.9 K/cumm [facility] Hgb 8.9(L) 11.9 - 15.5 g/dL [facility] Hct 27.3(L) 35.6 - 45.5 % [facility] Plt 95(L) 150 - 400 K/cumm [facility] MPV 10.6 9.1 - 12.3 fL [facility] RBC 3.06(L) 3.90 - 5.20 M/cumm [facility] MCV 89.2 81.3 - 96.4 fL [facility] Comment:MCV delta due to erin arent blood transfusion. MCH 29.1 27.1 - 33.3 pg [facility] MCHC 32.6 32.3 - 35.7 g/dL [facility] RDW CV 15.6(H) 11.1 - 14.9 % [facility] RDW SD 50.8(H) 35.7 - 48.1 fL [facility] NRBC abs 0.00 0.00 - 0.01 K/cumm [facility] Blood specimen (specimen) 04/17/2019 10:47 PM CDT 04/17/2019 11:52 PM CDT us Katarina Hall [employer] LAB BLOOD ORDERABLES Final Res ult Performing Organization Address [facility] Co de Phone Number [address] [address] * Potassium, whole blood (04/17/2019 8:06 PM CDT) Potassium, bld 3.5 3.3 - 4.9 mmol/L [facility] Blood specimen (specimen) 04/17/2019 8:06 PM CDT 04/17/2019 8:36 PM CDT us Greyson Reeves MD LAB BLOOD ORDERABLES Final R esult Performing Organization Address [facility] Co de Phone Number [address] [address] * Critical Result Callback Chemistry (04/17/2019 6:51 PM CDT) Date Notified [id number] [facility] Time Notified 1948 [facility] TestName Potassium [facility] Called[facility]Read Back gaby cochran [facility] [facility] Credentials [facility] Called By cb [facility] Blood specimen (specimen) 04/17/2019 6:51 PM CDT 04/17/2019 7:09 PM CDT Greyson Reeves MD LAB BLOOD ORDERABLES Final R esult Performing Organization Address [facility]/ZIP Co de Phone Number [place] [address] * (ABNORMAL) Basic metabolic panel (04/17/2019 6:51 PM CDT) Sodium 139 135 - 145 mmol/L [facility] Potassium, pl 8.8(C) 3.3 - 4.9 mmol/L [facility] Chloride 112(H) 97 - 110 mmol/L [facility] CO2 19(L) 22 - 32 mmol/L [facility] Anion gap 8 2 - 15 mmol/L [facility] BUN 5(L) 8 - 25 mg/dL [facility] Creatinine 0.50(L) 0.60 - 1.10 mg/dL [facility] Glucose 274(H) 70 - 199 mg/dL [facility] 2017. Calcium 6.8(L) 8.5 - 10.3 mg/dL [facility] Blood specimen (specimen) 04/17/2019 6:51 PM CDT 04/17/2019 7:09 PM CDT us Greyson Reeves MD LAB BLOOD ORDERABLES Final R esult Performing Organization Address [facility]/ZIP Co de Phone Number [place] [address] * (ABNORMAL) Calcium, ionized (04/17/2019 6:51 PM CDT) Calcium, Ionized 3.87(L) 4.50 - 5.10 mg/dL [facility] Blood specimen (specimen) 04/17/2019 6:51 PM CDT 04/17/2019 7:06 PM CDT Greyson Reeves MD LAB BLOOD ORDERABLES Final R esult Performing Organization Address [facility] Co de Phone Number [address] [address] * Transfuse RBC (04/17/2019 4:46 PM CDT) Blood specimen (specimen) Result [facility] Katarina Hall [employer] BLOOD TRANSFUSION ORDERABLES F inal Result Performing Organization Address [facility] de Phone Number [address] [address] * Transfuse RBC: 1 Units (04/17/2019 4:46 PM CDT) Blood specimen (specimen) Result [facility] Katarina Hall [employer] BLOOD TRANSFUSION ORDERABLES F inal Result * Calcium, ionized (04/17/2019 1:03 PM CDT) Calcium, Ionized 4.54 4.50 - 5.10 mg/dL [facility] Blood specimen (specimen) 04/17/2019 1:03 PM CDT 04/17/2019 1:58 PM CDT Greyson Reeves MD LAB BLOOD ORDERABLES Final R esult Performing Organization Address [facility] Co de Phone Number [address] [address] * (ABNORMAL) Basic metabolic panel (04/17/2019 1:03 PM CDT) Sodium 138 135 - 145 mmol/L [facility] Potassium, pl 3.3 3.3 - 4.9 mmol/L [facility] Chloride 110 97 - 110 mmol/L [facility] CO2 19(L) 22 - 32 mmol/L [facility] Anion gap 9 2 - 15 mmol/L [facility] BUN 5(L) 8 - 25 mg/dL [facility] Creatinine 0.52(L) 0.60 - 1.10 mg/dL [facility] Glucose 263(H) 70 - 199 mg/dL [facility] 2017. Calcium 7.4(L) 8.5 - 10.3 mg/dL [facility] Blood specimen (specimen) 04/17/2019 1:03 PM CDT 04/17/2019 1:58 PM CDT Greyson Reeves MD LAB BLOOD ORDERABLES Final R esult Performing Organization Address [facility]/ZIP Co de Phone Number [address] [address] * Calcium, ionized, whole blood (04/17/2019 9:43 AM CDT) Ca, ionized, bld 4.73 4.50 - 5.10 mg/dL [facility] Blood specimen (specimen) 04/17/2019 9:43 AM CDT 04/17/2019 10:43 AM CDT Greyson Reeves MD LAB BLOOD ORDERABLES Final R esult Performing Organization Address City/[facility]/ZIP Co de Phone Number [facility] [address] [place] [address] * Potassium, whole blood (04/17/2019 9:43 AM CDT) Potassium, bld 3.5 3.3 - 4.9 mmol/L [facility] Blood specimen (specimen) 04/17/2019 9:43 AM CDT 04/17/2019 10:43 AM CDT us Greyson Reeves MD LAB BLOOD ORDERABLES Final R esult [facility] [address] [place] [address] * (ABNORMAL) Basic metabolic panel (04/17/2019 9:43 AM CDT) Pathologist [facility] Sodium 143 135 - 145 mmol/L [facility] Potassium, pl 3.5 3.3 - 4.9 mmol/L [facility] Chloride 114(H) 97 - 110 mmol/L [facility] CO2 21(L) 22 - 32 mmol/L [facility] Anion gap 8 2 - 15 mmol/L [facility] BUN 6(L) 8 - 25 mg/dL [facility] Creatinine 0.58(L) 0.60 - 1.10 mg/dL [facility] Glucose 103 70 - 199 mg/dL [facility] 2017. Calcium 7.7(L) 8.5 - 10.3 mg/dL [facility] Blood specimen (specimen) 04/17/2019 9:43 AM CDT 04/17/2019 10:45 AM CDT Greyson Reeves MD LAB BLOOD ORDERABLES Final R esult Performing Organization Address [facility] Co de Phone Number [address] [address] * Type and screen (04/17/2019 9:43 AM CDT) Yolande, indirect Negative [facility] ABO Rh AB Positive [facility] Blood specimen (specimen) 04/17/2019 9:43 AM CDT 04/17/2019 10:47 AM CDT Narrative [facility] - 04/17/2019 11:44 AM CDT Has the patient had Daratumumab (Darzalex) in the past 6 months?->Unknown Katarina Hall NP LAB BLOOD BANK TEST ORDERABLES Final Result Performing Organization Address [facility] de Phone Number [address] [address] * Prepare RBC: 2 Units (04/17/2019 7:42 AM CDT) Product code [id number] [facility] Unit Number [id number] [facility] Product Blood Type BPOS [facility] Dispense Status PRESUMED TRANSFUSED [facility] Product code [id number] [facility] Unit Number [id number] [facility] Product Blood Type BPOS [facility] Dispense Status RETURNED [facility] Blood specimen (specimen) 04/17/2019 7:42 AM CDT 04/17/2019 7:43 AM CDT Narrative [facility] - 04/18/2019 7:34 AM CDT Are special requirements needed? (all products are leukoreduced)->No Date required:-[id number] LRRBC # of Rfymy-0-Eszon Reasons:-Hgb <7 g/dL} Katarina Hall NP BLOOD BANK PRODUCT ORDERABLES Final Result Performing Organization Address [facility]/ZIP Co de Phone Number JASON BLACK [address] [place] [address] * ECG 12 lead (04/17/2019 7:30 AM CDT) Ventricular Rate EKG/Min 84 BPM [facility] Atrial Rate 84 BPM [facility] AL-Interval (MSEC) 128 ms [facility] QRS-Interval (MSEC) 92 ms [facility] QT-Interval (MSEC) 384 ms [facility] QTc 453 ms [facility] P [place] 22 degrees [facility] R [place] 6 degrees [facility] T [place] 20 degrees [facility] Diagnosis Normal sinus rhythm Normal ECG When compared with ECG of 14-APR-2019 04:21, Vent. rate has decreased BY ??46 BPM Confirmed by PIPER WILSON M.D ([id number]) on 04/17/2019 11:40:05 AM [facility] 04/17/2019 7:30 AM CDT 04/17/2019 11:40 AM CDT us Greyson Reeves MD ECG ORDERABLES Final Result Performing Organization Address [facility] Co de Phone Number [facility] * Critical Result Callback Chemistry (04/17/2019 6:18 AM CDT) Date Notified [id number] [facility] Time Notified 08 [facility] TestName Potassium Timothy [facility] Called/Read Back Penelope [facility] Credentials [place] [facility] Called By ra [facility] Blood specimen (specimen) 04/17/2019 6:18 AM CDT 04/17/2019 7:22 AM CDT us Greyson Reeves MD LAB BLOOD ORDERABLES Final R esult Performing Organization Address [facility] Co de Phone Number JASON [facility] [address] [place] [address] * (ABNORMAL) Basic metabolic panel (04/17/2019 6:18 AM CDT) Sodium 145 135 - 145 mmol/L [facility] Potassium, pl 8.1(C) 3.3 - 4.9 mmol/L [facility] Chloride 124(H) 97 - 110 mmol/L [facility] CO2 19(L) 22 - 32 mmol/L [facility] Anion gap 2 2 - 15 mmol/L [facility] BUN 6(L) 8 - 25 mg/dL [facility] Creatinine 0.53(L) 0.60 - 1.10 mg/dL [facility] Glucose 237(H) 70 - 199 mg/dL [facility] 2017. Calcium 6.7(L) 8.5 - 10.3 mg/dL [facility] Blood specimen (specimen) 04/17/2019 6:18 AM CDT 04/17/2019 7:22 AM CDT Greyson Reeves MD LAB BLOOD ORDERABLES Final R esult [facility] [address] [place] [address] * (ABNORMAL) Calcium, ionized (04/17/2019 6:18 AM CDT) Calcium, Ionized 4.19(L) 4.50 - 5.10 mg/dL [facility] Blood specimen (specimen) 04/17/2019 6:18 AM CDT 04/17/2019 7:22 AM CDT Greyson Reeves MD LAB BLOOD ORDERABLES Final R esult Performing Organization Address [facility] Co de Phone Number [address] [address] * (ABNORMAL) Phosphorus (04/17/2019 5:12 AM CDT) Phosphorus, pl 1.3(L) 2.3 - 4.5 mg/dL [facility] Blood specimen (specimen) 04/17/2019 5:12 AM CDT 04/17/2019 5:41 AM CDT Greyson Reeves MD LAB BLOOD ORDERABLES Final R esult Performing Organization Address [facility] de Phone Number [address] [address] * Magnesium (04/17/2019 5:12 AM CDT) Magnesium 1.8 1.4 - 2.5 mg/dL [facility] Blood specimen (specimen) 04/17/2019 5:12 AM CDT 04/17/2019 5:41 AM CDT Greyson Reeves MD LAB BLOOD ORDERABLES Final R esult Performing Organization Address [facility] de Phone Number [address] [address] * Calcium, ionized (04/17/2019 5:12 AM CDT) Calcium, Ionized 4.69 4.50 - 5.10 mg/dL [facility] Blood specimen (specimen) 04/17/2019 5:12 AM CDT 04/17/2019 5:41 AM CDT Greyson Reeves MD LAB BLOOD ORDERABLES Final R esult Performing Organization Address [facility] Co de Phone Number [address] [address] * (ABNORMAL) Basic metabolic panel (04/17/2019 5:12 AM CDT) Pathologist [facility] Sodium 143 135 - 145 mmol/L [facility] Potassium, pl 3.5 3.3 - 4.9 mmol/L [facility] Chloride 114(H) 97 - 110 mmol/L [facility] CO2 21(L) 22 - 32 mmol/L [facility] Anion gap 8 2 - 15 mmol/L [facility] BUN 7(L) 8 - 25 mg/dL [facility] Creatinine 0.59(L) 0.60 - 1.10 mg/dL [facility] Glucose 112 70 - 199 mg/dL [facility] 2017. Calcium 7.6(L) 8.5 - 10.3 mg/dL [facility] Blood specimen (specimen) 04/17/2019 5:12 AM CDT 04/17/2019 5:41 AM CDT us Greyson Reeves MD LAB BLOOD ORDERABLES Final R esult [facility] [address] [place] [address] * (ABNORMAL) Differential, auto (04/16/2019 10:11 PM CDT) Pathologist [facility] Neutrophil abs 3.4 1.7 - 6.5 K/cumm [facility] Imm gran abs 0.0 0.0 - 0.1 K/cumm [facility] Lymphocyte abs 0.2(L) 0.8 - 3.3 K/cumm [facility] Monocyte abs 0.4 0.2 - 0.8 K/cumm [facility] Eosinophil abs 0.1 0.0 - 0.5 K/cumm [facility] Basophil abs 0.0 0.0 - 0.1 K/cumm [facility] Neutrophil pct 81.3 % [facility] Comment: Interpretive Data Percent cell count reference ranges are not reported, since discordance with absolute values may lead to misinterpretation of CBC data. Current Interpretive Data was last revised on 2017. Imm gran pct 1.2 % [facility] Comment: Interpretive Data Percent cell count reference ranges are not reported, since discordance with absolute values may lead to misinterpretation of CBC data. Current Interpretive Data was last revised on 2017. Lymphocyte pct 5.0 % [facility] Comment: Interpretive Data Percent cell count reference ranges are not reported, since discordance with absolute values may lead to misinterpretation of CBC data. Current Interpretive Data was last revised on 2017. Monocyte pct 10.3 % [facility] Comment: Interpretive Data Percent cell count reference ranges are not reported, since discordance with absolute values may lead to misinterpretation of CBC data. Current Interpretive Data was last revised on 2017. Eosinophil pct 1.7 % [facility] Comment: Interpretive Data Percent cell count reference ranges are not reported, since discordance with absolute values may lead to misinterpretation of CBC data. Current Interpretive Data was last revised on 2017. Basophil pct 0.5 % [facility] Comment: Interpretive Data Percent cell count reference ranges are not reported, since discordance with absolute values may lead to misinterpretation of CBC data. Current Interpretive Data was last revised on 2017. Blood specimen (specimen) 04/16/2019 10:11 PM CDT 04/16/2019 10:43 PM CDT us Katarina Hall [employer] LAB BLOOD ORDERABLES Final Res ult [facility] [address] [place] [address] * (ABNORMAL) Basic metabolic panel (04/16/2019 10:11 PM CDT) Sodium 143 135 - 145 mmol/L [facility] Potassium, pl 3.0(L) 3.3 - 4.9 mmol/L [facility] Chloride 115(H) 97 - 110 mmol/L [facility] CO2 18(L) 22 - 32 mmol/L [facility] Anion gap 10 2 - 15 mmol/L [facility] BUN 9 8 - 25 mg/dL [facility] Creatinine 0.61 0.60 - 1.10 mg/dL [facility] Glucose 73 70 - 199 mg/dL [facility] 2017. Calcium 7.1(L) 8.5 - 10.3 mg/dL [facility] Blood specimen (specimen) 04/16/2019 10:11 PM CDT 04/16/2019 10:43 PM CDT us Greyson Reeves MD LAB BLOOD ORDERABLES Final R esult [facility] [address] [place] [address] * (ABNORMAL) CBC with auto differential (04/16/2019 10:11 PM CDT) [facility] WBC 4.2 3.8 - 9.9 K/cumm [facility] Hgb 6.9(L) 11.9 - 15.5 g/dL [facility] Hct 21.0(L) 35.6 - 45.5 % [facility] Plt 82(L) 150 - 400 K/cumm [facility] MPV 11.2 9.1 - 12.3 fL [facility] RBC 2.23(L) 3.90 - 5.20 M/cumm [facility] MCV 94.2 81.3 - 96.4 fL [facility] MCH 30.9 27.1 - 33.3 pg [facility] MCHC 32.9 32.3 - 35.7 g/dL [facility] RDW CV 13.9 11.1 - 14.9 % [facility] RDW SD 48.2(H) 35.7 - 48.1 fL [facility] NRBC abs 0.00 0.00 - 0.01 K/cumm [facility] Blood specimen (specimen) 04/16/2019 10:11 PM CDT 04/16/2019 10:43 PM CDT Katarina Hall [employer] LAB BLOOD ORDERABLES Final Res ult Performing Organization Address [facility] de Phone Number [address] [address] * Calcium, ionized (04/16/2019 6:13 PM CDT) Pathologist [facility] Calcium, Ionized 4.53 4.50 - 5.10 mg/dL [facility] Blood specimen (specimen) 04/16/2019 6:13 PM CDT 04/16/2019 7:05 PM CDT Greyson Reeves MD LAB BLOOD ORDERABLES Final R esult Performing Organization Address [facility] de Phone Number [address] [address] * (ABNORMAL) Basic metabolic panel (04/16/2019 6:13 PM CDT) Pathologist [facility] Sodium 142 135 - 145 mmol/L [facility] Potassium, pl 3.2(L) 3.3 - 4.9 mmol/L [facility] Chloride 117(H) 97 - 110 mmol/L [facility] CO2 19(L) 22 - 32 mmol/L [facility] Anion gap 6 2 - 15 mmol/L [facility] BUN 9 8 - 25 mg/dL [facility] Creatinine 0.60 0.60 - 1.10 mg/dL [facility] Glucose 70 70 - 199 mg/dL [facility] 2017. Calcium 7.3(L) 8.5 - 10.3 mg/dL [facility] Blood specimen (specimen) 04/16/2019 6:13 PM CDT 04/16/2019 7:05 PM CDT Greyson Reeves MD LAB BLOOD ORDERABLES Final R esult Performing Organization Address [facility] Co de Phone Number [address] [address] * Calcium, ionized (04/16/2019 12:08 PM CDT) Pathologist [facility] Calcium, Ionized 4.81 4.50 - 5.10 mg/dL [facility] Blood specimen (specimen) 04/16/2019 12:08 PM CDT 04/16/2019 12:52 PM CDT Greyson Reeves MD LAB BLOOD ORDERABLES Final R esult Performing Organization Address [facility] Co de Phone Number [address] [address] * (ABNORMAL) Basic metabolic panel (04/16/2019 12:08 PM CDT) Sodium 143 135 - 145 mmol/L [facility] Potassium, pl 3.4 3.3 - 4.9 mmol/L [facility] Chloride 114(H) 97 - 110 mmol/L [facility] CO2 20(L) 22 - 32 mmol/L [facility] Anion gap 9 2 - 15 mmol/L [facility] BUN 10 8 - 25 mg/dL [facility] Creatinine 0.71 0.60 - 1.10 mg/dL [facility] Glucose 86 70 - 199 mg/dL [facility] 2017. Calcium 8.2(L) 8.5 - 10.3 mg/dL [facility] Blood specimen (specimen) 04/16/2019 12:08 PM CDT 04/16/2019 12:52 PM CDT Greyson Reeves MD LAB BLOOD ORDERABLES Final R esult Performing Organization Address [facility] de Phone Number [address] [address] * Calcium, ionized (04/16/2019 6:45 AM CDT) Pathologist [facility] Calcium, Ionized 4.62 4.50 - 5.10 mg/dL [facility] Blood specimen (specimen) 04/16/2019 6:45 AM CDT 04/16/2019 7:47 AM CDT Greyson Reeves MD LAB BLOOD ORDERABLES Final R esult Performing Organization Address [facility] de Phone Number [address] [address] * (ABNORMAL) Basic metabolic panel (04/16/2019 6:45 AM CDT) Sodium 140 135 - 145 mmol/L [facility] Potassium, pl 3.5 3.3 - 4.9 mmol/L [facility] Chloride 113(H) 97 - 110 mmol/L [facility] CO2 21(L) 22 - 32 mmol/L [facility] Anion gap 6 2 - 15 mmol/L [facility] BUN 12 8 - 25 mg/dL [facility] Creatinine 0.68 0.60 - 1.10 mg/dL [facility] Glucose 81 70 - 199 mg/dL [facility] 2017. Calcium 8.2(L) 8.5 - 10.3 mg/dL [facility] Blood specimen (specimen) 04/16/2019 6:45 AM CDT 04/16/2019 7:47 AM CDT us Greyson Reeves MD LAB BLOOD ORDERABLES Final R esult JASON [address]ACK [address] [place] [address] * (ABNORMAL) Basic metabolic panel (04/15/2019 9:26 PM CDT) Sodium 141 135 - 145 mmol/L [facility] Potassium, pl 3.8 3.3 - 4.9 mmol/L [facility] Chloride 114(H) 97 - 110 mmol/L [facility] CO2 22 22 - 32 mmol/L [facility] Anion gap 5 2 - 15 mmol/L [facility] BUN 14 8 - 25 mg/dL [facility] Creatinine 0.74 0.60 - 1.10 mg/dL [facility] Glucose 90 70 - 199 mg/dL [facility] 2017. Calcium 8.5 8.5 - 10.3 mg/dL [facility] Blood specimen (specimen) 04/15/2019 9:26 PM CDT 04/15/2019 10:52 PM CDT Greyson Reeves MD LAB BLOOD ORDERABLES Final R esult Performing Organization Address City/[facility] Co de Phone Number [address] [address] * Phosphorus (04/15/2019 9:26 PM CDT) Phosphorus, pl 2.3 2.3 - 4.5 mg/dL [facility] Blood specimen (specimen) 04/15/2019 9:26 PM CDT 04/15/2019 10:52 PM CDT Greyson Reeves MD LAB BLOOD ORDERABLES Final R esult Performing Organization Address [facility] Co de Phone Number [address] [address] * Magnesium (04/15/2019 9:26 PM CDT) Pathologist [facility] Magnesium 1.7 1.4 - 2.5 mg/dL [facility] Blood specimen (specimen) 04/15/2019 9:26 PM CDT 04/15/2019 10:52 PM CDT Greyson Reeves MD LAB BLOOD ORDERABLES Final R esult J[facility] [address] [place] [address] * (ABNORMAL) CBC without differential (04/15/2019 9:26 PM CDT) WBC 3.8 3.8 - 9.9 K/cumm [facility] Hgb 8.0(L) 11.9 - 15.5 g/dL [facility] Hct 23.8(L) 35.6 - 45.5 % [facility] Plt 84(L) 150 - 400 K/cumm [facility] MPV 11.0 9.1 - 12.3 fL [facility] RBC 2.53(L) 3.90 - 5.20 M/cumm [facility] MCV 94.1 81.3 - 96.4 fL [facility] MCH 31.6 27.1 - 33.3 pg [facility] MCHC 33.6 32.3 - 35.7 g/dL [facility] RDW CV 14.1 11.1 - 14.9 % [facility] RDW SD 48.1 35.7 - 48.1 fL [facility] NRBC abs 0.00 0.00 - 0.01 K/cumm [facility] Blood specimen (specimen) 04/15/2019 9:26 PM CDT 04/15/2019 10:32 PM CDT Greyson Reeves MD LAB BLOOD ORDERABLES Final R esult J[facility] [address] [place] [address] * Calcium, ionized (04/15/2019 9:26 PM CDT) Calcium, Ionized 4.79 4.50 - 5.10 mg/dL [facility] Blood specimen (specimen) 04/15/2019 9:26 PM CDT 04/15/2019 10:32 PM CDT Greyson Reeves MD LAB BLOOD ORDERABLES Final R esult Performing Organization Address [facility] de Phone Number JASON BLACK[address] [address] * Calcium, ionized (04/15/2019 8:14 PM CDT) Calcium, Ionized 4.71 4.50 - 5.10 mg/dL [facility] Blood specimen (specimen) 04/15/2019 8:14 PM CDT 04/15/2019 9:12 PM CDT Greyson Reeves MD LAB BLOOD ORDERABLES Final R esult Performing Organization Address [facility] de Phone Number [facility] [address] [address] * (ABNORMAL) Calcium, ionized (04/15/2019 1:45 PM CDT) Calcium, Ionized 5.32(H) 4.50 - 5.10 mg/dL [facility] Blood specimen (specimen) 04/15/2019 1:45 PM CDT 04/15/2019 2:28 PM CDT Greyson Reeves MD LAB BLOOD ORDERABLES Final R [facility] Performing Organization Address [facility] de Phone Number [facility] [address] [address] * (ABNORMAL) Basic metabolic panel (04/15/2019 5:20 AM CDT) Sodium 140 135 - 145 mmol/L [facility] Potassium, pl 3.8 3.3 - 4.9 mmol/L [facility] Chloride 110 97 - 110 mmol/L [facility] CO2 23 22 - 32 mmol/L [facility] Anion gap 7 2 - 15 mmol/L [facility] BUN 17 8 - 25 mg/dL [facility] Creatinine 0.89 0.60 - 1.10 mg/dL [facility] Glucose 112 70 - 199 mg/dL [facility] 2017. Calcium 8.0(L) 8.5 - 10.3 mg/dL [facility] Blood specimen (specimen) 04/15/2019 5:20 AM CDT 04/15/2019 5:43 AM CDT Neto Moss MD LAB BLOOD ADRIEL RIVAS Final Result [facility] [address] [place] [address] * (ABNORMAL) CBC without differential (04/15/2019 5:16 AM CDT) WBC 4.2 3.8 - 9.9 K/cumm [facility] Hgb 8.5(L) 11.9 - 15.5 g/dL [facility] Hct 26.1(L) 35.6 - 45.5 % [facility] Plt 88(L) 150 - 400 K/cumm [facility] MPV 10.7 9.1 - 12.3 fL [facility] RBC 2.74(L) 3.90 - 5.20 M/cumm [facility] MCV 95.3 81.3 - 96.4 fL [facility] MCH 31.0 27.1 - 33.3 pg [facility] MCHC 32.6 32.3 - 35.7 g/dL [facility] RDW CV 14.6 11.1 - 14.9 % [facility] RDW SD 49.8(H) 35.7 - 48.1 fL [facility] NRBC abs 0.00 0.00 - 0.01 K/cumm [facility] Blood specimen (specimen) 04/15/2019 5:16 AM CDT 04/15/2019 5:43 AM CDT Greyson Reeves MD LAB BLOOD ORDERABLES Final R esult Performing Organization Address [facility] Co de Phone Number [address] [address] * Calcium, ionized (04/15/2019 5:11 AM CDT) Calcium, Ionized 4.59 4.50 - 5.10 mg/dL [facility] Blood specimen (specimen) 04/15/2019 5:11 AM CDT 04/15/2019 5:43 AM CDT Greyson Reeves MD LAB BLOOD ORDERABLES Final R esult Performing Organization Address [facility] de Phone Number [address] [address] * XR Abdomen Ap 1 Vw (04/15/2019 [...] CDT) Sodium 139 135 - 145 mmol/L [facility] Potassium, pl 3.8 3.3 - 4.9 mmol/L [facility] Chloride 110 97 - 110 mmol/L [facility] CO2 22 22 - 32 mmol/L [facility] Anion gap 7 2 - 15 mmol/L [facility] BUN 18 8 - 25 mg/dL [facility] Creatinine 1.02 0.60 - 1.10 mg/dL [facility] Glucose 121 70 - 199 mg/dL [facility] [...] 2017. Calcium 7.0(L) 8.5 - 10.3 mg/dL [facility] Blood specimen (specimen) 04/14/2019 11:18 PM CDT 04/14/2019 11:37 PM CDT Greyson Reeves MD LAB BLOOD ORDERABLES Final R esult Performing Organization Address [facility] de Phone Number [address] [address] * (ABNORMAL) Calcium, ionized (04/14/2019 11:18 PM CDT) Calcium, Ionized 3.96(L) 4.50 - 5.10 mg/dL [facility] Blood specimen (specimen) 04/14/2019 11:18 PM CDT 04/14/2019 11:37 PM CDT Greyson Reeves MD LAB BLOOD ORDERABLES Final R esult Performing Organization Address [facility] de Phone Number [address] [address] * (ABNORMAL) Vitamin D 25 hydroxy (04/14/2019 11:18 PM CDT) Vitamin D 25-OH 22(L) 30 - 80 ng/mL [facility] Blood specimen (specimen) 04/14/2019 11:18 PM CDT 04/14/2019 11:37 PM CDT Greyson Reeves MD LAB BLOOD ORDERABLES Final R esult Performing Organization Address [facility] de Phone Number [address] [address] * (ABNORMAL) PTH (04/14/2019 11:18 PM CDT) PTH 554(H) 15 - 65 pg/mL [facility] Blood specimen (specimen) 04/14/2019 11:18 PM CDT 04/14/2019 11:38 PM CDT Greyson Reeves MD LAB BLOOD ORDERABLES Final R esult Performing Organization Address [facility] Co de Phone Number [address] [address] * (ABNORMAL) Phosphorus (04/14/2019 11:18 PM CDT) [facility] Phosphorus, pl 2.2(L) 2.3 - 4.5 mg/dL [facility] Blood specimen (specimen) 04/14/2019 11:18 PM CDT 04/14/2019 11:37 PM CDT Greyson Reeves MD LAB BLOOD ORDERABLES Final R esult Performing Organization Address [facility] Co de Phone Number [address] [address] * Magnesium (04/14/2019 11:18 PM CDT) [facility] Magnesium 2.2 1.4 - 2.5 mg/dL [facility] Blood specimen (specimen) 04/14/2019 11:18 PM CDT 04/14/2019 11:37 PM CDT Greyson Reeves MD LAB BLOOD ORDERABLES Final R [facility] Performing Organization Address [facility] Co de Phone Number [address] [address] * (ABNORMAL) CBC without differential (04/14/2019 11:18 PM CDT) [facility] WBC 4.8 3.8 - 9.9 K/cumm [facility] Hgb 8.4(L) 11.9 - 15.5 g/dL [facility] Hct 25.3(L) 35.6 - 45.5 % [facility] Plt 93(L) 150 - 400 K/cumm [facility] MPV 10.7 9.1 - 12.3 fL [facility] RBC 2.76(L) 3.90 - 5.20 M/cumm [facility] MCV 91.7 81.3 - 96.4 fL [facility] MCH 30.4 27.1 - 33.3 pg [facility] MCHC 33.2 32.3 - 35.7 g/dL [facility] RDW CV 14.5 11.1 - 14.9 % [facility] RDW SD 48.0 35.7 - 48.1 fL [facility] NRBC abs 0.00 0.00 - 0.01 K/cumm [facility] Blood specimen (specimen) 04/14/2019 11:18 PM CDT 04/14/2019 11:37 PM CDT Greyson Reeves MD LAB BLOOD ORDERABLES Final R [facility] Performing Organization Address [facility] de Phone Number [address] [address] * aPTT (04/14/2019 5:12 PM CDT) aPTT 29.7 25.0 - 37.0 sec [facility] Comment: Interpretive Data Therapeutic heparin range:60.0 - 94.0 sec based on correlation with therapeutic heparin activity range of 0.3 -0.7 Units/mL. Current interpretive data was last revised on 2011. Blood specimen (specimen) 04/14/2019 5:12 PM CDT 04/14/2019 6:33 PM CDT Greyson Reeves MD LAB BLOOD ORDERABLES Final R [facility] Performing Organization Address [facility] de Phone Number [address] [address] * (ABNORMAL) Protime-INR (04/14/2019 5:12 PM CDT) PT 15.0(H) 8.6 - 13.0 sec [facility] INR 1.38(H) 0.80 - 1.20 [facility] Comment: Interpretive Data Inpatient therapeutic ranges* Atrial fibrillation ?2.0-3.0 INR Venous thrombo-embolism ?2.0-3.0 INR Bioprosthetic heart valve ?* Mechanical heart valve, bileaflet or tilting disk,aortic position ? 2.0-3.0 INR All other,or bileaflet or tilting disk, in mitral position ? 2.5-3.5 INR *See the pharmacy resource directory (PHRED) for an updated copy of the Tool Book at [email or web address] Current Interpretive Data was last revised 2011. Blood specimen (specimen) 04/14/2019 5:12 PM CDT 04/14/2019 6:33 PM CDT Greyson Reeves MD LAB BLOOD ORDERABLES Final R esult Performing Organization Address [facility] de Phone Number [facility] [address], [place] [id number] * (ABNORMAL) Calcium, ionized (04/14/2019 4:36 PM CDT) Calcium, Ionized 3.49(L) 4.50 - 5.10 mg/dL [facility] Blood specimen (specimen) 04/14/2019 4:36 PM CDT 04/14/2019 5:23 PM CDT Greyson Reeves MD LAB BLOOD ORDERABLES Final R esult Performing Organization Address [facility] de Phone Number [facility] [address] [place] [address] * Phosphorus (04/14/2019 4:36 PM CDT) Phosphorus, pl 2.7 2.3 - 4.5 mg/dL [facility] Blood specimen (specimen) 04/14/2019 4:36 PM CDT 04/14/2019 5:23 PM CDT Greyson Reeves MD LAB BLOOD ORDERABLES Final R esult Performing Organization Address [facility] Co de Phone Number [facility] [address] [place] [address] * (ABNORMAL) CBC without differential (04/14/2019 4:36 PM CDT) WBC 5.7 3.8 - 9.9 K/cumm [facility] Hgb 10.6(L) 11.9 - 15.5 g/dL [facility] Hct 32.4(L) 35.6 - 45.5 % [facility] Plt 106(L) 150 - 400 K/cumm [facility] MPV 10.6 9.1 - 12.3 fL [facility] RBC 3.41(L) 3.90 - 5.20 M/cumm [facility] MCV 95.0 81.3 - 96.4 fL [facility] MCH 31.1 27.1 - 33.3 pg [facility] MCHC 32.7 32.3 - 35.7 g/dL [facility] RDW CV 14.5 11.1 - 14.9 % [facility] RDW SD 50.3(H) 35.7 - 48.1 fL [facility] NRBC abs 0.00 0.00 - 0.01 K/cumm [facility] Blood specimen (specimen) 04/14/2019 4:36 PM CDT 04/14/2019 5:17 PM CDT Greyson Reeves MD LAB BLOOD ORDERABLES Final R esult Performing Organization Address City/[facility]/ZIP Co de Phone Number [facility] [address] [place] [address] * Magnesium (04/14/2019 4:36 PM CDT) Magnesium 2.3 1.4 - 2.5 mg/dL [facility] Blood specimen (specimen) 04/14/2019 4:36 PM CDT 04/14/2019 5:23 PM CDT us Greyson Reeves MD LAB BLOOD ORDERABLES Final R esult [facility] [address] [place] [address] * (ABNORMAL) Comprehensive metabolic panel (04/14/2019 4:36 PM CDT) Pathologist [facility] Sodium 140 135 - 145 mmol/L [facility] Potassium, pl 4.3 3.3 - 4.9 mmol/L [facility] Chloride 112(H) 97 - 110 mmol/L [facility] CO2 18(L) 22 - 32 mmol/L [facility] Anion gap 10 2 - 15 mmol/L [facility] BUN 17 8 - 25 mg/dL [facility] Creatinine 1.07 0.60 - 1.10 mg/dL [facility] Glucose 118 70 - 199 mg/dL [facility] Calcium 6.8(L) 8.5 - 10.3 mg/dL [facility] Bilirubin, total 1.1 0.1 - 1.2 mg/dL [facility] Protein, pl 5.5(L) 6.5 - 8.5 g/dL [facility] Albumin 2.7(L) 3.5 - 5.0 g/dL [facility] Alk phos 66 40 - 130 Units/L [facility] ALT 13 7 - 45 Units/L [facility] AST 37 10 - 45 Units/L [facility] Blood specimen (specimen) 04/14/2019 4:36 PM CDT 04/14/2019 5:23 PM CDT Greyson Reeves MD LAB BLOOD ORDERABLES Final R esult Performing Organization Address [facility] de Phone Number [facility] [address] [place] [address] * Sodium, urine, random (04/14/2019 1:52 PM CDT) Sodium, ur 34 mmol/L [facility] Comment: Interpretive Data No reference range established. Current interpretive data was last revised 2018. Urine 04/14/2019 1:52 PM CDT 04/14/2019 2:41 PM CDT Result [facility] Greyson Reeves MD LAB URINE ORDERABLES Final R [facility] Performing Organization Address [facility] de Phone Number [facility] [address] [place] [address] * Creatinine, urine, random (04/14/2019 1:52 PM CDT) Creatinine Ur 294.6 mg/dL [facility] Comment: Interpretive Data No reference range established. Current interpretive data was last revised 2018. Urine 04/14/2019 1:52 PM CDT 04/14/2019 2:41 PM CDT Result [facility] Greyson Reeves MD LAB URINE ORDERABLES Final R esult Performing Organization Address [facility] de Phone Number [facility] [address] [place] [address] * Prepare RBC: 2 Units (04/14/2019 12:14 PM CDT) Product code [id number] [facility] Unit Number [id number] 3-S [facility] Product Blood Type APOS [facility] Dispense Status RETURNED [facility] Product code [id number] [facility] Unit Number [id number] 5-B [facility] Product Blood Type APOS [facility] Dispense Status RETURNED [facility] Blood specimen (specimen) 04/14/2019 12:14 PM CDT 04/14/2019 12:15 PM CDT Narrative [facility] - 04/15/2019 8:53 AM CDT Other indication->concern for post-surgical bleeding Are special requirements needed? (all products are leukoreduced)->No Date required:-20190414 [facility] # of [id number] Reasons:-Other (specify)} Greyson Reeves MD BLOOD BANK PRODUCT ORDERABLE S Final Result Performing Organization Address City/[facility]/ZIP Co de Phone Number [facility] [address] [place] [address] * Critical Result Callback Chemistry (04/14/2019 9:17 AM CDT) Date Notified 20190414 [facility] Time Notified 1120 [facility] TestName Calcium [facility] Called/Read Back Jane Johns [facility] Credentials RN [facility] Called By [facility] Blood specimen (specimen) 04/14/2019 9:17 AM CDT 04/14/2019 10:52 AM CDT Greyson Reeves MD LAB BLOOD ORDERABLES Final R esult [facility] [address] [place] [address] * Troponin I (04/14/2019 9:17 AM CDT) Troponin I <0.03 0.00 - 0.03 ng/mL [facility] Comment: Interpretive Data: Normal plasma Troponin [...] for Troponin assay. References: 1. Clin Chem 2013;59:9115-2640 2. Journal of the [place] [employer] 2012;60:1581-98 Current Interpretive Data Last Revised Date: 2018. Blood specimen (specimen) 04/14/2019 9:17 AM CDT 04/14/2019 10:52 AM CDT Greyson Reeves MD LAB BLOOD ORDERABLES Final R esult Performing Organization Address [facility] Co de Phone Number [address] [address] * Phosphorus (04/14/2019 9:17 AM CDT) Phosphorus, pl 2.5 2.3 - 4.5 mg/dL [facility] Blood specimen (specimen) 04/14/2019 9:17 AM CDT 04/14/2019 10:52 AM CDT Greyson Reeves MD LAB BLOOD ORDERABLES Final R esult Performing Organization Address [facility] de Phone Number [address] [address] * Magnesium (04/14/2019 9:17 AM CDT) Magnesium 1.6 1.4 - 2.5 mg/dL [facility] Blood specimen (specimen) 04/14/2019 9:17 AM CDT 04/14/2019 10:52 AM CDT Greyson Reeves MD LAB BLOOD ORDERABLES Final R esult Performing Organization Address [facility] Co de Phone Number [address] [address] * (ABNORMAL) CBC without differential (04/14/2019 9:17 AM CDT) [facility] WBC 5.9 3.8 - 9.9 K/cumm [facility] Hgb 10.1(L) 11.9 - 15.5 g/dL [facility] Hct 30.2(L) 35.6 - 45.5 % [facility] Plt 119(L) 150 - 400 K/cumm [facility] MPV 11.1 9.1 - 12.3 fL [facility] RBC 3.33(L) 3.90 - 5.20 M/cumm [facility] MCV 90.7 81.3 - 96.4 fL [facility] MCH 30.3 27.1 - 33.3 pg [facility] MCHC 33.4 32.3 - 35.7 g/dL [facility] RDW CV 14.3 11.1 - 14.9 % [facility] RDW SD 47.1 35.7 - 48.1 fL [facility] NRBC abs 0.00 0.00 - 0.01 K/cumm [facility] Blood specimen (specimen) 04/14/2019 9:17 AM CDT 04/14/2019 10:53 AM CDT Greyson Reeves MD LAB BLOOD ORDERABLES Final R esult Performing Organization Address [facility] de Phone Number [address] [address] * (ABNORMAL) Calcium, ionized (04/14/2019 9:17 AM CDT) [facility] Calcium, Ionized 3.66(L) 4.50 - 5.10 mg/dL [facility] Blood specimen (specimen) 04/14/2019 9:17 AM CDT 04/14/2019 10:52 AM CDT Greyson Reeves MD LAB BLOOD ORDERABLES Final R esult Performing Organization Address City/[facility] Co de Phone Number [address] [address] * (ABNORMAL) Basic metabolic panel (04/14/2019 9:17 AM CDT) Pathologist [facility] Sodium 142 135 - 145 mmol/L [facility] Potassium, pl 3.9 3.3 - 4.9 mmol/L [facility] Chloride 110 97 - 110 mmol/L [facility] CO2 23 22 - 32 mmol/L [facility] Anion gap 9 2 - 15 mmol/L [facility] BUN 15 8 - 25 mg/dL [facility] Creatinine 1.19(H) 0.60 - 1.10 mg/dL [facility] Glucose 133 70 - 199 mg/dL [facility] [...] 2017. Calcium 6.4(C) 8.5 - 10.3 mg/dL [facility] Blood specimen (specimen) 04/14/2019 9:17 AM CDT 04/14/2019 10:52 AM CDT us Greyson Reeves MD LAB BLOOD ORDERABLES Final R esult [facility] [address] [place] [address] * Troponin I (04/14/2019 6:50 AM CDT) Pathologist [facility] Troponin I <0.03 0.00 - 0.03 ng/mL [facility] Comment: Interpretive Data: Normal plasma Troponin [...] for Troponin assay. References: 1. Clin Chem 2013;59:7888-0767 2. Journal of the [place] [employer] 2012;60:1581-98 Current Interpretive Data Last Revised Date: 2018. Blood specimen (specimen) 04/14/2019 6:50 AM CDT 04/14/2019 7:54 AM CDT Greyson Reeves MD LAB BLOOD ORDERABLES Final R esult Performing Organization Address [facility] Co de Phone Number [address] [address] * (ABNORMAL) Calcium, ionized (04/14/2019 5:21 AM CDT) [facility] Calcium, Ionized 3.36(L) 4.50 - 5.10 mg/dL [facility] Blood specimen (specimen) 04/14/2019 5:21 AM CDT 04/14/2019 5:51 AM CDT Greyson Reeves MD LAB BLOOD ORDERABLES Final R esult Performing Organization Address [facility] Co de Phone Number [address] [address] * ECG 12 lead (04/14/2019 4:21 AM CDT) Ventricular Rate EKG/Min 130 BPM [facility] Atrial Rate 130 BPM [facility] AL-Interval (MSEC) 120 ms [facility] QRS-Interval (MSEC) 84 ms [facility] QT-Interval (MSEC) 312 ms [facility] QTc 459 ms [facility] P [place] -27 degrees [facility] R [place] 20 degrees [facility] T [place] 4 degrees [facility] Diagnosis Sinus tachycardia Poor precordial R wave progression consistent with faulty lead placement ,copd, anterior infarction, etc. Anterior infarct (cited on or before 14-APR-2019) Abnormal ECG When compared with ECG of 14-APR-2019 04:21, (unconfirmed) No significant change was found Confirmed by PIPER WILSON M.D ([id number]) on 04/14/2019 4:33:58 PM [facility] 04/14/2019 4:21 AM CDT 04/14/2019 4:33 PM CDT us Greyson Reeves MD ECG ORDERABLES Final Result Performing Organization Address [facility] Co de Phone Number [facility] * (ABNORMAL) Albumin (04/14/2019 1:45 AM CDT) Albumin 3.0(L) 3.5 - 5.0 g/dL [facility] Blood specimen (specimen) 04/14/2019 1:45 AM CDT 04/14/2019 2:21 AM CDT Greyson Reeves MD LAB BLOOD ORDERABLES Final R esult Performing Organization Address [facility] de Phone Number [address] [address] * Critical Result Callback Chemistry (04/14/2019 1:45 AM CDT) Date Notified 20190414 [facility] Time Notified 309 [facility] TestName Calcium [facility] Called/Read Back Kathy Zuleta [facility] Credentials RN [facility] Called By rosa maria [facility] Blood specimen (specimen) 04/14/2019 1:45 AM CDT 04/14/2019 2:21 AM CDT Greyson Reeves MD LAB BLOOD ORDERABLES Final R esult Performing Organization Address [facility] de Phone Number [address] [address] * (ABNORMAL) Basic metabolic panel (04/14/2019 1:45 AM CDT) Sodium 138 135 - 145 mmol/L [facility] Potassium, pl 4.4 3.3 - 4.9 mmol/L [facility] Chloride 111(H) 97 - 110 mmol/L [facility] CO2 20(L) 22 - 32 mmol/L [facility] Anion gap 7 2 - 15 mmol/L [facility] BUN 11 8 - 25 mg/dL [facility] Creatinine 0.86 0.60 - 1.10 mg/dL [facility] Glucose 157 70 - 199 mg/dL [facility] 2017. Calcium 6.4(C) 8.5 - 10.3 mg/dL [facility] Blood specimen (specimen) 04/14/2019 1:45 AM CDT 04/14/2019 2:21 AM CDT us Greyson Reeves MD LAB BLOOD ORDERABLES Final R esult [facility] [address], [place] [id number] * (ABNORMAL) Differential, auto (04/14/2019 1:45 AM CDT) Neutrophil abs 5.1 1.7 - 6.5 K/cumm [facility] Imm gran abs 0.0 0.0 - 0.1 K/cumm [facility] Lymphocyte abs 0.3(L) 0.8 - 3.3 K/cumm [facility] Monocyte abs 0.9(H) 0.2 - 0.8 K/cumm [facility] Eosinophil abs 0.0 0.0 - 0.5 K/cumm [facility] Basophil abs 0.0 0.0 - 0.1 K/cumm [facility] Neutrophil pct 80.6 % [facility] Comment: Confirmed by smear review Interpretive Data Percent cell count reference ranges are not reported, since discordance with absolute values may lead to misinterpretation of CBC data. Current Interpretive Data was last revised on 2017. Imm gran pct 0.2 % [facility] Comment: Interpretive Data Percent cell count reference ranges are not reported, since discordance with absolute values may lead to misinterpretation of CBC data. Current Interpretive Data was last revised on 2017. Lymphocyte pct 4.3 % [facility] Comment: Interpretive Data Percent cell count reference ranges are not reported, since discordance with absolute values may lead to misinterpretation of CBC data. Current Interpretive Data was last revised on 2017. Monocyte pct 14.6 % [facility] Comment: Interpretive Data Percent cell count reference ranges are not reported, since discordance with absolute values may lead to misinterpretation of CBC data. Current Interpretive Data was last revised on 2017. Eosinophil pct 0.0 % [facility] Comment: Interpretive Data Percent cell count reference ranges are not reported, since discordance with absolute values may lead to misinterpretation of CBC data. Current Interpretive Data was last revised on 2017. Basophil pct 0.3 % [facility] Comment: Interpretive Data Percent cell count reference ranges are not reported, since discordance with absolute values may lead to misinterpretation of CBC data. Current Interpretive Data was last revised on 2017. Blood specimen (specimen) 04/14/2019 1:45 AM CDT 04/14/2019 2:21 AM CDT us Katarina Hall [employer] LAB BLOOD ORDERABLES Final Res ult [facility]AS[facility] [address] [place] [address] * (ABNORMAL) Phosphorus (04/14/2019 1:45 AM CDT) Phosphorus, pl 1.6(L) 2.3 - 4.5 mg/dL [facility] Blood specimen (specimen) 04/14/2019 1:45 AM CDT 04/14/2019 2:21 AM CDT Greyson Reeves MD LAB BLOOD ORDERABLES Final R esult Performing Organization Address City/[facility] Co de Phone Number [address] [address] * Magnesium (04/14/2019 1:45 AM CDT) Pathologist [facility] Magnesium 1.8 1.4 - 2.5 mg/dL [facility] Blood specimen (specimen) 04/14/2019 1:45 AM CDT 04/14/2019 2:21 AM CDT Greyson Reeves MD LAB BLOOD ORDERABLES Final R esult Performing Organization Address [facility] de Phone Number [address] [address] * (ABNORMAL) CBC with auto differential (04/14/2019 1:45 AM CDT) [facility] WBC 6.3 3.8 - 9.9 K/cumm [facility] Hgb 12.2 11.9 - 15.5 g/dL [facility] Hct 37.5 35.6 - 45.5 % [facility] Plt 145(L) 150 - 400 K/cumm [facility] MPV 10.5 9.1 - 12.3 fL [facility] RBC 3.96 3.90 - 5.20 M/cumm [facility] MCV 94.7 81.3 - 96.4 fL [facility] MCH 30.8 27.1 - 33.3 pg [facility] MCHC 32.5 32.3 - 35.7 g/dL [facility] RDW CV 14.2 11.1 - 14.9 % [facility] RDW SD 48.6(H) 35.7 - 48.1 fL [facility] NRBC abs 0.00 0.00 - 0.01 K/cumm [facility] Blood specimen (specimen) 04/14/2019 1:45 AM CDT 04/14/2019 2:21 AM CDT Greyson Reeves MD LAB BLOOD ORDERABLES Final R esult Performing Organization Address [facility] Co de Phone Number [facility] [address] [place] [address] * aPTT (04/12/2019 9:48 PM CDT) aPTT 26.3 25.0 - 37.0 sec [facility] Comment: Interpretive Data Therapeutic heparin range:60.0 - 94.0 sec based on correlation with therapeutic heparin activity range of 0.3 -0.7 Units/mL. Current interpretive data was last revised on 2011. Blood specimen (specimen) 04/12/2019 9:48 PM CDT 04/12/2019 10:22 PM CDT Woodrow Cerna MD LAB BLOOD ORDERABLES Final Res ult Performing Organization Address [facility] Co de Phone Number [facility] [address] [place] [address] * Protime-INR (04/12/2019 9:48 PM CDT) PT 11.3 8.6 - 13.0 sec [facility] INR 1.05 0.80 - 1.20 [facility] Comment: Interpretive Data Inpatient therapeutic ranges* Atrial fibrillation ?2.0-3.0 INR Venous thrombo-embolism ?2.0-3.0 INR Bioprosthetic heart valve ?* Mechanical heart valve, bileaflet or tilting disk,aortic position ? 2.0-3.0 INR All other,or bileaflet or tilting disk, in mitral position ? 2.5-3.5 INR *See the pharmacy resource directory (PHRED) for an updated copy of the Tool Book at [email or web address] Current Interpretive Data was last revised 2011. Blood specimen (specimen) 04/12/2019 9:48 PM CDT 04/12/2019 10:22 PM CDT Woodrow Cerna MD LAB BLOOD ORDERABLES Final Res ult Performing Organization Address [facility] de Phone Number [address] [address] * Type and screen (04/12/2019 9:48 PM CDT) Yolande, indirect Negative [facility] ABO Rh AB Positive [facility] Blood specimen (specimen) 04/12/2019 9:48 PM CDT 04/12/2019 10:24 PM CDT Narrative [facility] - 04/12/2019 11:12 PM CDT Has the patient had Daratumumab (Darzalex) in the past 6 months?->Unknown Woodrow Cerna MD LAB BLOOD BANK TEST ORDERABLES Final Result Performing Organization Address [facility] de Phone Number [address] [address] * (ABNORMAL) Phosphorus (04/12/2019 9:48 PM CDT) Phosphorus, pl 1.2(L) 2.3 - 4.5 mg/dL [facility] Blood specimen (specimen) 04/12/2019 9:48 PM CDT 04/12/2019 10:25 PM CDT Woodrow Cerna MD LAB BLOOD ORDERABLES Final Res ult Performing Organization Address [facility] de Phone Number [facility] [address] [place] [address] * Magnesium (04/12/2019 9:48 PM CDT) Pathologist [facility] Magnesium 2.1 1.4 - 2.5 mg/dL [facility] Blood specimen (specimen) 04/12/2019 9:48 PM CDT 04/12/2019 10:25 PM CDT Woodrow Cerna MD LAB BLOOD ORDERABLES Final Res ult Performing Organization Address [facility] de Phone Number [address] [address] * (ABNORMAL) CBC without differential (04/12/2019 9:48 PM CDT) [facility] WBC 5.0 3.8 - 9.9 K/cumm [facility] Hgb 13.6 11.9 - 15.5 g/dL [facility] Hct 40.9 35.6 - 45.5 % [facility] Plt 130(L) 150 - 400 K/cumm [facility] MPV 10.3 9.1 - 12.3 fL [facility] RBC 4.49 3.90 - 5.20 M/cumm [facility] MCV 91.1 81.3 - 96.4 fL [facility] MCH 30.3 27.1 - 33.3 pg [facility] MCHC 33.3 32.3 - 35.7 g/dL [facility] RDW CV 14.3 11.1 - 14.9 % [facility] RDW SD 46.8 35.7 - 48.1 fL [facility] NRBC abs 0.00 0.00 - 0.01 K/cumm [facility] Blood specimen (specimen) 04/12/2019 9:48 PM CDT 04/12/2019 10:24 PM CDT Woodrow Cerna MD LAB BLOOD ORDERABLES Final Res ult Performing Organization Address City/[facility]/ZIP Co de Phone Number [address] [address] * (ABNORMAL) Basic metabolic panel (04/12/2019 9:48 PM CDT) Sodium 139 135 - 145 mmol/L [facility] Potassium, pl 3.9 3.3 - 4.9 mmol/L [facility] Chloride 108 97 - 110 mmol/L [facility] CO2 24 22 - 32 mmol/L [facility] Anion gap 7 2 - 15 mmol/L [facility] BUN 16 8 - 25 mg/dL [facility] Creatinine 0.83 0.60 - 1.10 mg/dL [facility] Glucose 155 70 - 199 mg/dL [facility] [...] 2017. Calcium 8.0(L) 8.5 - 10.3 mg/dL [facility] Blood specimen (specimen) 04/12/2019 9:48 PM CDT 04/12/2019 10:25 PM CDT us Woodrow Cerna MD LAB BLOOD ORDERABLES Final Res ult [facility] [address] [place] [address] * CT Body Outside Consult (04/12/2019 5:22 [...] images may or may not represent the [facility] source data set and thus may contain changes that may lower the accuracy of this second-opinion interpretation. Electronically signed by: Chalino Abernathy M.D., MPH Narrative 04/12/2019 1:12 PM CDT EXAMINATION: RADIOLOGY CONSULTATION ON OUTSIDE IMAGING STUDY STUDY INITIALLY PERFORMED: 04/11/2019 at [facility]. TYPE OF STUDY: Multiple computed tomographic [...] STUDY STUDY INITIALLY PERFORMED: 04/11/2019 at [facility]. TYPE OF STUDY: Multiple computed tomographic [...] images may or may not represent the [facility] source data set and thus may contain changes that may lower the accuracy of this second-opinion interpretation. Electronically signed by: Chalino Abernathy M.D., MPH Woodrow Cerna MD IMG CT PROCEDURES Final Result * (ABNORMAL) Urinalysis, microscopic only (04/12/2019 2:03 AM CDT) WBC, ur 6-10(A) 0 - 5 /HPF [facility] RBC, ur 3-5(A) 0 - 2 /HPF [facility] Epithelial cells, squamous, ur 1-5 0 - 5 /HPF [facility] Bacteria, ur 3+(A) [facility] Mucous, ur Present(A) [facility] Urine 04/12/2019 2:03 AM CDT 04/12/2019 3:34 AM CDT Woodrow Cerna MD LAB URINE ORDERABLES Final Res ult Performing Organization Address [facility] Co de Phone Number [facility] [address] [address] * Urine culture Urine, bladder (04/12/2019 2:03 AM CDT) Report Final Report: Less than 100,000 colonies/mL (clinically insignificant growth based on current clinical standards) [facility] Organism (CLINICALLY INSIGNIFICANT GROWTH [facility] Urine, bladder 04/12/2019 2: 03 AM CDT 04/12/2019 3:46 AM CDT Narrative [facility] - 04/13/2019 8:58 AM CDT Indications for Culture:->Recent positive UA Testing performed by [facility] ([phone]) Woodrow Cerna MD LAB MICROBIOLOGY - GENERAL ORD ERABLES Final Result Performing Organization Address [facility]/ZIP Co de Phone Number [address] [address] * (ABNORMAL) Urinalysis reflex to microscopic (04/12/2019 2:03 AM CDT) Color, ur Yellow Yellow [facility] Clarity, ur Cloudy(A) Clear [facility] Specific gravity, ur >1.042(H) 1.010 - 1.025 [facility] pH, urine 5 [facility] Protein, ur ql 1+(A) Negative [facility] Glucose, ur ql Negative Negative [facility] Ketones, ur Trace Negative [facility] Bilirubin, ur Negative Negative [facility] Blood, ur Negative Negative [facility] Urobilinogen, ur <2.0 <2.0 mg/dL [facility] Nitrite, ur Negative Negative [facility] Leukocyte esterase, ur Negative Negative [facility] Urine 04/12/2019 2:03 AM CDT 04/12/2019 3:34 AM CDT Narrative [facility] - 04/12/2019 3:54 AM CDT ?? Urine pH is affected by diet, medications, systemic acid-base disturbances, and renal tubular function. ??pH may affect urinary stone formation. ??For example, urine pH below 6.0 may help reduce the tendency for calcium phosphate stones and pH greater than 6.0 may reduce the tendency for uric acid stone formation. Source: [place] [employer]. Last revised 07-18-2017 Woodrow Cerna MD LAB URINE ORDERABLES Final Res ult Performing Organization Address [facility] Co de Phone Number [address] [address] * Phosphorus (04/12/2019 2:00 AM CDT) Phosphorus, pl 3.3 2.3 - 4.5 mg/dL [facility] Blood specimen (specimen) 04/12/2019 2:00 AM CDT 04/12/2019 3:39 AM CDT Woodrow Cerna MD LAB BLOOD ORDERABLES Final Res ult Performing Organization Address [facility] Co de Phone Number [address] [address] * Magnesium (04/12/2019 2:00 AM CDT) Magnesium 2.0 1.4 - 2.5 mg/dL [facility] Blood specimen (specimen) 04/12/2019 2:00 AM CDT 04/12/2019 3:39 AM CDT Woodrow Cerna MD LAB BLOOD ORDERABLES Final Res ult Performing Organization Address [facility] Co de Phone Number [facility] [address] [place] [address] * (ABNORMAL) Basic metabolic panel (04/12/2019 2:00 AM CDT) [facility] Sodium 141 135 - 145 mmol/L [facility] Potassium, pl 3.1(L) 3.3 - 4.9 mmol/L [facility] Chloride 107 97 - 110 mmol/L [facility] CO2 24 22 - 32 mmol/L [facility] Anion gap 10 2 - 15 mmol/L [facility] BUN 14 8 - 25 mg/dL [facility] Creatinine 0.77 0.60 - 1.10 mg/dL [facility] Glucose 136 70 - 199 mg/dL [facility] [...] 2017. Calcium 8.2(L) 8.5 - 10.3 mg/dL [facility] Blood specimen (specimen) 04/12/2019 2:00 AM CDT 04/12/2019 3:39 AM CDT Woodrow Cerna MD LAB BLOOD ORDERABLES Final Res ult Performing Organization Address [facility] de Phone Number [facility] [address] [place] [address] * (ABNORMAL) CBC without differential (04/12/2019 2:00 AM CDT) WBC 7.0 3.8 - 9.9 K/cumm [facility] Hgb 14.3 11.9 - 15.5 g/dL [facility] Hct 42.4 35.6 - 45.5 % [facility] Plt 135(L) 150 - 400 K/cumm [facility] MPV 10.5 9.1 - 12.3 fL [facility] RBC 4.74 3.90 - 5.20 M/cumm [facility] MCV 89.5 81.3 - 96.4 fL [facility] MCH 30.2 27.1 - 33.3 pg [facility] MCHC 33.7 32.3 - 35.7 g/dL [facility] RDW CV 13.6 11.1 - 14.9 % [facility] RDW SD 44.0 35.7 - 48.1 fL [facility] NRBC abs 0.00 0.00 - 0.01 K/cumm [facility] Blood specimen (specimen) 04/12/2019 2:00 AM CDT 04/12/2019 3:39 AM CDT Woodrow Cerna MD LAB BLOOD ORDERABLES Final Res ult [facility] [address] [place] [address] documented in this encounter Visit Diagnoses Diagnosis [...] [place]) 0347 (Not Given - Provider: Pamela Nails, [place] - Reason: Patient/family refused - Comment: patient [...] at 0900 0927 (Given - Provider: Nichole aNsh RN) 0917 (Given - Provider: Bea Escobar [...] Nichole Nash RN)2011 (Given - Provider: Pamela Brigida Jesu, RN) 0917 (Given - Provider: Bea Escobar [...] size, and protocol. 0900 (Due)2100 (Due) 0900 (Due)2024 (Given - Provider: Pamela Nails RN) 0900 [...] 04/13/2019 documented in this encounter Care Teams Education Spec Relationship Specialty Start Date End Date Julio César Briseno MD PCP - General 10/01/16 Eren Cr MD Referring Physician Medical Oncology 11/25/18 Yohana Bowen MD Radiation Oncologist Radiation Oncology 11/25/18 documented as of this encounter
--- OUTSIDE RECORDS SUMMARY | 2024-06-26 02:19 | XMS_ITS | Encounter Summary ---
Author Organization [facility] Healthcare Address [address] [place] [address] Care Team Providers Care Machine Slat Basket Maker Name Role Phone Julio César Briseno MD Primary Care Provider [phone] Eren Cr MD Unavailable Yohana Bowen MD Unavailable Encounter Details Date Type Department Care Team (Late st Contact Info) Description 04/13/2019 3:24 PM CDT Anesthesia Event [facility] Operating Room [address] [place] [address] Shawn Green MD [address] [facility] [address] [place] [address] Maggy Aguilar NP [address] [facility] [address] [place] [address] Anesthesia Record Procedure Summary Procedure Name Responsible [...] assessment 04/28/19; 06/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, 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 by [facility] with LDA Utility); 1213 (Retired LDA, Removed/Completed by [facility] with LDA Utility) 04/13/19 1555 by [...] Removal Time: 18404/13/19 155 by Dm Richardson, WOOD MACHINIST APPRENTICE 04/13/19 184 by Janeen Weston CRNA Peripheral IV Placement Date: 04/13/19; Placement Time: 155 (created via procedure documentation); Catheter Size: 18 G; Orientation: Left; Location: Hand; Site Prep: Alcohol; Insertion Attempts: 1; Removal Date: 04/14/19 04/13/19 1558 by Dm Richardson, WOOD MACHINIST APPRENTICE 04/14/19 0000 by Nica Smith RN documented in this encounter Social History Tobacco Use Types Packs/Day Years Used Date Smoking Tobacco: Never Smokeless Tobacco: Never Alcohol Use Standard Drinks/Week Comments Yes 1 (1 standard drink = 0.6 oz pur e alcohol) Comments No Sex and Gender Information Value Date Recorded Sex Assigned at Not on file 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 Gender Identity Not on file Sexual Orientation Straight 02/19/2021 9: 29 AM CDT Occupation Industry Job Start Date Job End Date retired Not on file Not on file Not on file documented as of this encounter OR Notes * Anesthesia Postprocedure Evaluation - Thong Abraham MD - 04/13/2019 8:27 PM CDT Patient: La Chung Procedure Summary Date: 04/13/19 Room / Location: [facility] ROOM 331 / [facility] Anesthesia Start: 1524 Anesthesia [...] Planning Preoperative Evaluation Record Inpatient Preoperative Evaluation ([facility]) Date: 04/13/19 Anesthesia Evaluation Procedure(s): EXPLORATORY LAPAROTOMY [...] Hypertension + Hyperlipidemia + CAD Pertinent negatives: [place] ; valvular heart disease; atrial fibrillation; arrhythmia; [...] > 5 YEARS N/A 02/17/2019 ? ? CT REMOVAL OF TONSILS,<10 Y/O [...] a month -- -- Historical Provider, coenzyme [id number] E (CO Q-10, WITH VIT E,) 100-5 [...] Medication protocol when under care of a WOOD MACHINIST APPRENTICE Planned anesthesia: General Informed Consent: Discussed plan with WOOD MACHINIST APPRENTICE. Anesthesia plan and risks discussed with patient [...] Name Priority Date/Time Associated Diagnosis Comments CT AN PROCEDURE PLACEHOLDER Routine 04/13/2019 3:57 PM [...] patient tolerated procedure well with no complications CT AN PROCEDURE PLACEHOLDER Routine 04/13/2019 3:55 PM [...] contents noted in back of throat RSI CT AN ELECTIVE ENDOTRACHEAL AIRWAY Routine 04/13/2019 3:55 [...] 04/13/2019 documented in this encounter Care Teams Machine Slat Basket Maker Relationship Specialty Start Date End Date Julio César Briseno MD PCP - General 10/01/16 Eren Cr MD Referring Physician Medical Oncology 11/25/18 Yohana Bowen MD Radiation Oncologist Radiation Oncology 11/25/18 documented as of this encounter
--- OUTSIDE RECORDS SUMMARY | 2024-06-26 02:20 | XMS_ITS | Encounter Summary ---
Author Organization [facility] Address [address] [place] [address] Phone Care Team Providers Care Acid Cutter Name Role Phone Julio César Briseno MD Primary Care Provider Eren Cr MD Unavailable [phone] Yohana Bowen MD Unavailable Encounter Details Date Type Department Care Team (Late st Contact Info) Description 12/10/2018 Orders Only [facility] Oncology [address] [place] [address] Mayela Williamson RN Malignant neoplasm metastatic to liver (CMS/HCC); Neuroendocrine carcinoma (CMS/HCC) Social History Tobacco Use Types Packs/Day Years Used Date Smoking Tobacco: Never Smokeless Tobacco: Never Alcohol Use Standard Drinks/Week Comments Yes 1 (1 standard drink = 0.6 oz pur e alcohol) Comments No Sex and Gender Information Value Date Recorded Sex Assigned at Not on file 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
--- OUTSIDE RECORDS SUMMARY | 2024-06-26 02:20 | XMS_ITS | Encounter Summary ---
Author Organization [facility] Healthcare Address [address] [place] [address] Care Team Providers Care Teletypewriter Installer Name Role Phone Julio César Briseno MD Primary Care Provider Eren Cr MD Unavailable [phone] Yohana Bowen MD Unavailable Encounter Details Date Type Department Care Team (Late st Contact Info) Description 12/02/2018 Orders Only [facility] Radiation Oncology [address] [facility] [place] [address] Hien Soto, [place] Social History Tobacco Use Types Packs/Day Years Used Date Smoking Tobacco: Never Smokeless Tobacco: Never Alcohol Use Standard Drinks/Week Comments Yes 1 (1 standard drink = 0.6 oz pur e alcohol) Comments No Sex and Gender Information Value Date Recorded Sex Assigned at Not on file 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
--- OUTSIDE RECORDS SUMMARY | 2024-06-26 02:20 | XMS_ITS | Encounter Summary ---
Author Organization [facility] Address [address] [place] [address] Phone Care Team Providers Care Quality Control Inspector Heading Name Role Phone Julio César Briseno MD Primary Care Provider Eren Cr MD Unavailable [phone] Yohana Bowen MD Unavailable Encounter Details Date Type Department Care Team (Late st Contact Info) Description 03/05/2019 Telephone [facility] Oncology [address] [facility] 7th [place] [address] [place] [address] Jeevan Martino, RN [address] [place], [place] [id number] Social History Tobacco Use Types Packs/Day Years Used Date Smoking Tobacco: Never Smokeless Tobacco: Never Alcohol Use Standard Drinks/Week Comments Yes 1 (1 standard drink = 0.6 oz pur e alcohol) Comments No Sex and Gender Information Value Date Recorded Sex Assigned at Not on file 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 Information to B AND B GANG WORKER Sabrina Willard to call Shanell back. documented in this encounter Plan of Treatment Not on file documented as of this encounter Visit Diagnoses Not on filedocumented in this encounter Care Teams Quality Control Inspector Heading Relationship Specialty Start Date End Date Julio César Briseno MD PCP - General 10/01/16 Eren Cr MD Referring Physician Medical Oncology 11/25/18 Yohana Bowen MD Radiation Oncologist Radiation Oncology 11/25/18 documented as of this encounter
--- OUTSIDE RECORDS SUMMARY | 2024-06-26 02:20 | XMS_ITS | Encounter Summary ---
Author Organization [facility] Healthcare Address [address] [place] [address] Care Team Providers Care Small Battery Plate Assembler Name Role Phone Julio César Briseno MD Primary Care Provider [phone] Eren Cr MD Unavailable [phone] Yohana Bowen MD Unavailable Encounter Details Date Type Department Care Team (Late st Contact Info) Description 03/30/2019 Orders Only [facility] Advanced Medicine Radiation Oncology [address] [facility] [place] [address] Hien Soto RN Neuroendocrine carcinoma (CMS/HCC) (Primary Dx) Social History Tobacco Use Types Packs/Day Years Used Date Smoking Tobacco: Never Smokeless Tobacco: Never Alcohol Use Standard Drinks/Week Comments Yes 1 (1 standard drink = 0.6 oz pur e alcohol) Comments No Sex and Gender Information Value Date Recorded Sex Assigned at Not on file Legal Sex Female 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
--- OUTSIDE RECORDS SUMMARY | 2024-06-26 02:20 | XMS_ITS | Encounter Summary ---
Author Organization [facility] Address [address] [place] [address] Phone Care Team Providers Care Site Physician Name Role Phone Julio César Briseno MD Primary Care Provider [phone] Eren Cr MD Unavailable [phone] Yohana Bowen MD Unavailable Encounter Details Date Type Department Care Team (Late st Contact Info) Description 03/02/2019 10:15 AM CDT Office Visit [facility] Oncology [facility] 7th [place] [address] [place] [address] Eren Cr MD [address] [facility] [address] [place], [place] [id number] Diarrhea, unspecified type (Primary Dx); Malignant neoplasm [...] file Legal Sex Female 2:41 PM AIR HOSE 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 She is [...] and will plan to start injection at [facility] in4 weeks. 3. Diarrhea: Having episodes of stool incontinence. Prescription for lomotil provided. PT prescription for pelvic floor rehab provided today. This may help with urinary incontinence as well. MERLINE Redmond- Nurse Practitioner Medical Oncology Regional Manager completed by using M*Modal Fluency Direct speaking software, therefore, transcriptionvariances may occur. Cosigned by Eren Cr Jr., MD at 03/02/2019 3:12 PM CDT documented in this encounter Plan of Treatment Not on file documented as of this encounter Results * Phosphorus (03/30/2019 7:44 AM CDT) Phosphorus, pl 3.0 2.3 - 4.5 mg/dL [facility] Blood specimen (specimen) 03/30/2019 7:44 AM CDT 03/30/2019 7:49 AM CDT Eren Cr MD LAB BLOOD ORDERABLES Final Re sult Performing Organization Address [facility] de Phone Number [place] [address] * (ABNORMAL) Chromogranin A (03/30/2019 7:44 AM CDT) Pathologist [facility] Chromogranin A 203(H) <93 ng/mL [facility] Comment: Impaired renal or hepatic function or treatment with proton pump inhibitors may result in artifactual elevations of Chromogranin A. ADDITIONAL INFORMATION This test was developed and its performance characteristics determined by [facility] in a manner consistent with [...] absence of malignant disease. Test Performed by: [facility] [place] [address] Lathe Operator Contact Lens: Immanuel Novak M.D. Ph.D.; CLIA# [id number] Blood specimen (specimen) 03/30/2019 7:44 AM CDT 03/30/2019 3:29 PM CDT Eren Cr MD LAB BLOOD ORDERABLES Final Re sult Performing Organization Address [facility] Co de Phone Number [facility] BL[facility] [address] [place] [address] * (ABNORMAL) Comprehensive metabolic panel (03/30/2019 7:44 AM CDT) Pathologist [facility] Sodium 141 135 - 145 mmol/L [facility] Potassium, pl 4.1 3.3 - 4.9 mmol/L [facility] Chloride 104 97 - 110 mmol/L [facility] CO2 31 22 - 32 mmol/L [facility] Anion gap 6 2 - 15 mmol/L [facility] BUN 11 8 - 25 mg/dL [facility] Creatinine 0.93 0.60 - 1.10 mg/dL [facility] Glucose 120 70 - 199 mg/dL [facility] Comment: Interpretive Data Fasting glucose [...] 2017. Calcium 11.1(H) 8.5 - 10.3 mg/dL [facility] Bilirubin, total 1.0 0.1 - 1.2 mg/dL [facility] Protein, pl 6.9 6.5 - 8.5 g/dL [facility] Albumin 4.4 3.5 - 5.0 g/dL [facility] Alk phos 87 40 - 130 Units/L [facility] ALT 18 7 - 45 Units/L [facility] AST 30 10 - 45 Units/L [facility] Blood specimen (specimen) 03/30/2019 7:44 AM CDT 03/30/2019 7:49 AM CDT us Eren Cr MD LAB BLOOD ORDERABLES Final Re sult [facility] [address] [place], [place] [id number] * (ABNORMAL) CBC with auto differential (03/30/2019 7:42 AM CDT) Pathologist [facility] WBC 3.7(L) 3.8 - 9.8 K/cumm [facility] Comment:Testing performed by : [facility], [address] [place] [address] Hgb 14.3 12.1 - 15.1 g/dL [facility] Comment:Testing performed by : [facility], [address] [place], [place] [phone] Hct 40.5 36.1 - 44.3 % [facility] Comment:Testing performed by : [facility], [address] [place] [address] Plt 119(L) 140 - 440 K/cumm [facility] Comment:Testing performed by : [place] [address] MPV 8.0 6.8 - 10.4 fL [facility] Comment:Testing performed by : [place] [address] RBC 4.58 3.90 - 5.00 M/cumm [facility] Comment:Testing performed by : [facility], [address] [place] [address] MCV 88.6 80.0 - 97.6 fL [facility] Comment:Testing performed by : [place] [address] MCH 31.4 26.7 - 33.7 pg [facility] Comment:Testing performed by : [place] [address] MCHC 35.4 32.7 - 35.5 g/dL [facility] Comment:Testing performed by : [facility], [address] [place] [address] RDW CV 13.9 11.8 - 14.6 % [facility] Comment:Testing performed by : [place] [address] NRBC abs 0.01 0.00 - 0.01 K/cumm [facility] Comment:Testing performed by : [facility], [address] [place], [place] [phone] Blood specimen (specimen) 03/30/2019 7:42 AM CDT 03/30/2019 7:43 AM CDT us Eren Cr MD LAB BLOOD ORDERABLES Final Re sult [facility] [address] [place] [address] documented in this encounter Visit Diagnoses Diagnosis [...] 03/30/2019 documented in this encounter Care Teams Site Physician Relationship Specialty Start Date End Date Julio César Briseno MD PCP - General 10/01/16 Eren Cr MD Referring Physician Medical Oncology 11/25/18 Yohana Bowen MD Radiation Oncologist Radiation Oncology 11/25/18 documented as of this encounter
--- OUTSIDE RECORDS SUMMARY | 2024-06-26 02:20 | XMS_ITS | Encounter Summary ---
Author Organization [facility] Healthcare Address [address] [place] [address] Care Team Providers Care Fios Line Installer Name Role Phone Julio César Briseno MD Primary Care Provider [phone] Eren Cr MD Unavailable [phone] Yohana Bowen MD Unavailable Encounter Details Date Type Department Care Team (Late st Contact Info) Description 02/16/2019 Telephone [facility] Radiology [address] [place] [address] Minerva Tavares RN Social History Tobacco Use Types Packs/Day Years Used Date Smoking Tobacco: Never Smokeless Tobacco: Never Alcohol Use Standard Drinks/Week Comments Yes 1 (1 standard drink = 0.6 oz pur e alcohol) Comments No Sex and Gender Information Value Date Recorded Sex Assigned at Not on file Legal Sex Female 2:41 PM 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
--- OUTSIDE RECORDS SUMMARY | 2024-06-26 02:20 | XMS_ITS | Encounter Summary ---
Author Organization [facility] Healthcare Address [address] [place] [address] Care Team Providers Care Biostatistician Name Role Phone Julio César Briseno MD Primary Care Provider [phone] Eren Cr MD Unavailable [phone] Yohana Bowen MD Unavailable Sabrina Willard NP Unavailable [phone] Alejo Mi MD Unavailable [phone] Encounter Details Date Type Department Care Team (Late st Contact Info) Description 12/18/2018 Telephone [facility] Radiology [address] [address] Mj Sousa Social History Tobacco Use Types Packs/Day Years Used Date Smoking Tobacco: Never Smokeless Tobacco: Never Alcohol Use Standard Drinks/Week Comments Yes 1 (1 standard drink = 0.6 oz pur e alcohol) Comments No Sex and Gender Information Value Date Recorded Sex Assigned at Not on file Legal Sex Female 2:41 PM DOCUMENTATION CLERK Gender Identity Not on file Sexual [...] COVID: Suspected 09/04/2021 09/04/2021 09/04/2021 4:06 PM DOCUMENTATION CLERK COVID: Suspected 01/10/2022 01/10/2022 01/10/2022 5:55 PM CDT COVID: Suspected 06/13/2024 06/13/2024 06/13/2024 6:39 PM DOCUMENTATION CLERK documented as of this encounter Care Teams Biostatistician Relationship Specialty Start Date End Date Julio César Briseno MD PCP - General 10/01/16 Eren Cr MD Referring Physician Medical Oncology 11/25/18 Yohana Bowen MD Radiation Oncologist Radiation Oncology 11/25/18 Sabrina Willard NP [address] [place] [address] Nurse Practitioner Medical Oncology 08/17/20 11/26/21 Alejo Mi MD [address] [place] [address] Referring Physician Nephrology 03/07/23 documented as of this encounter
--- OUTSIDE RECORDS SUMMARY | 2024-06-26 02:20 | XMS_ITS | Encounter Summary ---
Author Organization [facility] Address [address] [place] [address] Phone Care Team Providers Care Regulatory Consultant Name Role Phone Julio César Briseno MD Primary Care Provider [phone] Eren Cr MD Unavailable [phone] Yohana Bowen MD Unavailable Encounter Details Date Type Department Care Team (Late st Contact Info) Description 03/05/2019 Telephone [facility] Oncology [address] [facility] Advanced Medicine 7th [place] [address] [place] [address] Sabrina Willard, NURSE RESEARCHER [address] [place] [address] Social History Tobacco Use Types Packs/Day Years Used Date Smoking Tobacco: Never Smokeless Tobacco: Never Alcohol Use Standard Drinks/Week Comments Yes 1 (1 standard drink = 0.6 oz pur e alcohol) Comments No Sex and Gender Information Value Date Recorded Sex Assigned at Not on file Legal Sex Female 2:41 PM 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
--- OUTSIDE RECORDS SUMMARY | 2024-06-26 02:20 | XMS_ITS | Encounter Summary ---
Author Organization [facility] Address [address] [place] [address] Phone Care Team Providers Care Oil Deliverer Name Role Phone Julio César Briseno MD Primary Care Provider Eren Cr MD Unavailable [phone] Yohana Bowen MD Unavailable Encounter Details Date Type Department Care Team (Late st Contact Info) Description 04/11/[address] [facility] Oncology [address] [place] [address] Bailee Bobby, CECILIA [address] [place] [address] Social History Tobacco Use Types Packs/Day Years Used Date Smoking Tobacco: Never Smokeless Tobacco: Never Alcohol Use Standard Drinks/Week Comments Yes 1 (1 standard drink = 0.6 oz pur e alcohol) Comments No Sex and Gender Information Value Date Recorded Sex Assigned at Not on file Legal Sex Female 2:41 PM CONSULTING NURSE Gender Identity Not on file Sexual [...] Call date: 04/11/19 Caller: Caroline Callback number: [phone] Caroline called the exchange for her mother [...] to the closest emergency room which is [facility] in [facility]. I asked the daughter call the exchange back with any further questions or concerns. She stated understanding. Primary oncologist team updated via [employer]. Bailee Bobby, MSN, OCN, ANP Nurse Practitioner, Medical Oncology Electrical Power Station Technician completed by using NewAuto Video Technology Direct speaking software, therefore, transcriptionvariances may occur. documented in this encounter Plan of Treatment Not on file documented as of this encounter Visit Diagnoses Not on filedocumented in this encounter Care Teams Oil Deliverer Relationship Specialty Start Date End Date Julio César Briseno MD PCP - General 10/01/16 Eren Cr MD Referring Physician Medical Oncology 11/25/18 Yohana Bowen MD Radiation Oncologist Radiation Oncology 11/25/18 documented as of this encounter
--- OUTSIDE RECORDS SUMMARY | 2024-06-26 02:20 | XMS_ITS | Encounter Summary ---
Author Organization [facility] Address [address] [place] [address] Phone Care Team Providers Care Parts Classifier Name Role Phone Julio César Briseno MD Primary Care Provider [phone] Eren Cr MD Unavailable [phone] Yohana Bowen MD Unavailable Encounter Details Date Type Department Care Team (Late st Contact Info) Description 03/30/2019 8:00 AM CDT Lab [facility] Oncology [facility] 7th [place] [address] [place] [address] 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); Neuroendocrine carcinoma (CMS/HCC) Social History Tobacco Use Types Packs/Day Years Used Date Smoking Tobacco: Never Smokeless Tobacco: Never Alcohol Use Standard Drinks/Week Comments Yes 1 (1 standard drink = 0.6 oz pur e alcohol) Comments No Sex and Gender Information Value Date Recorded Sex Assigned at Not on file Legal Sex Female 2:41 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 Gender Identity Not on file Sexual [...] deficiency profile (03/30/2019 7:44 AM CDT) Pathologist [facility] CD4 pct 44 31 - 64 % [facility] CD4 Absolute 233(L) 365 - 1,294 cells/mcL [facility] CD8 pct 21 12 - 40 % [facility] CD8 Absolute 108(L) 187 - 781 cells/mcL [facility] CD4/CD8 ratio 2.1 0.9 - 4.4 [facility] Blood specimen (specimen) 03/30/2019 7:44 AM CDT 03/30/2019 7:49 AM CDT us Yohana Bowen MD LAB BLOOD ORDERABLES Final [facility]ul t [facility] [address] [place] [address] * (ABNORMAL) Comprehensive metabolic panel (03/30/2019 7:44 AM CDT) Pathologist [facility] Sodium 141 135 - 145 mmol/L [facility] Potassium, pl 4.1 3.3 - 4.9 mmol/L [facility] Chloride 104 97 - 110 mmol/L [facility] CO2 31 22 - 32 mmol/L [facility] Anion gap 6 2 - 15 mmol/L [facility] BUN 11 8 - 25 mg/dL [facility] Creatinine 0.93 0.60 - 1.10 mg/dL [facility] Glucose 120 70 - 199 mg/dL [facility] Comment: Interpretive Data Fasting glucose [...] 2017. Calcium 11.1(H) 8.5 - 10.3 mg/dL [facility] Bilirubin, total 1.0 0.1 - 1.2 mg/dL [facility] Protein, pl 6.9 6.5 - 8.5 g/dL [facility] Albumin 4.4 3.5 - 5.0 g/dL [facility] Alk phos 87 40 - 130 Units/L [facility] ALT 18 7 - 45 Units/L [facility] AST 30 10 - 45 Units/L [facility] Blood specimen (specimen) 03/30/2019 7:44 AM CDT 03/30/2019 7:49 AM CDT us Eren Cr MD LAB BLOOD ORDERABLES Final Re sult [facility] [address] [place], [place] [id number] * (ABNORMAL) Chromogranin A (03/30/2019 7:44 AM CDT) Chromogranin A 203(H) <93 ng/mL [facility] Comment: Impaired renal or hepatic [...] absence of malignant disease. Test Performed by: [place] [address] Notch Grinder: Immanuel Novak M.D. Ph.D.; CLIA# [id number] Blood specimen (specimen) 03/30/2019 7:44 AM CDT 03/30/2019 3:29 PM CDT Eren Cr MD LAB BLOOD ORDERABLES Final Re sult Performing Organization Address [facility] Co de Phone Number [facility] [address] [place] [address] * Phosphorus (03/30/2019 7:44 AM CDT) Pathologist [facility] Phosphorus, pl 3.0 2.3 - 4.5 mg/dL [facility] Blood specimen (specimen) 03/30/2019 7:44 AM CDT 03/30/2019 7:49 AM CDT Eren Cr MD LAB BLOOD ORDERABLES Final Re sult Performing Organization Address [facility] Co de Phone Number [facility] [address] [place] [address] * (ABNORMAL) Differential, auto (03/30/2019 7:42 AM CDT) Neutrophil abs 2.5 1.8 - 6.6 K/cumm [facility] Comment:Testing performed by : [facility], [address] [place] [phone] Lymphocyte abs 0.4(L) 1.2 - 3.3 K/cumm [facility] Comment:Testing performed by : [facility], [address] [place] [phone] Monocyte abs 0.7 0.2 - 1.2 K/cumm [facility] Comment:Testing performed by : [facility], [address] [place] [phone] Eosinophil abs 0.1 0.0 - 0.5 K/cumm [facility] Comment:Testing performed by : [facility], [address] [place] [phone] Basophil abs 0.1 0.0 - 0.2 K/cumm [facility] Comment:Testing performed by : [facility], [address] [place] [phone] Neutrophil pct 66.8 % [facility] Comment: Interpretive Data Percent cell count reference ranges are not reported, since discordance with absolute values may lead to misinterpretation of CBC data. Current Interpretive Data was last revised on 2017. Testing performed by: [facility], [address] [place] [phone] Lymphocyte pct 10.6 % [facility] Comment: Interpretive Data Percent cell count reference ranges are not reported, since discordance with absolute values may lead to misinterpretation of CBC data. Current Interpretive Data was last revised on 2017. Testing performed by: [facility], [address] [place] [phone] Monocyte pct 19.1 % [facility] Comment:Testing performed by : [facility], [address] [place] [phone] Eosinophil pct 2.1 % [facility] Comment:Testing performed by : [facility], [address] [place] [phone] Basophil pct 1.4 % [facility] Comment:Testing performed by : [facility], [address] [place] [phone] Blood specimen (specimen) 03/30/2019 7:42 AM CDT 03/30/2019 7:43 AM CDT us Eren Cr MD LAB BLOOD ORDERABLES Final Re sult [facility] 1 [place] [address] * (ABNORMAL) CBC with auto differential (03/30/2019 7:42 AM CDT) WBC 3.7(L) 3.8 - 9.8 K/cumm [facility] Comment:Testing performed by : [facility], [address] [place] [phone] Hgb 14.3 12.1 - 15.1 g/dL [facility] Comment:Testing performed by : [address] [phone] Hct 40.5 36.1 - 44.3 % [facility] Comment:Testing performed by : [address] [phone] Plt 119(L) 140 - 440 K/cumm [facility] Comment:Testing performed by : [address] [phone] MPV 8.0 6.8 - 10.4 fL [facility] Comment:Testing performed by : [address] [phone] RBC 4.58 3.90 - 5.00 M/cumm [facility] Comment:Testing performed by : [address] [phone] MCV 88.6 80.0 - 97.6 fL [facility] Comment:Testing performed by : [address] [phone] MCH 31.4 26.7 - 33.7 pg [facility] Comment:Testing performed by : [address] [phone] MCHC 35.4 32.7 - 35.5 g/dL [facility] Comment:Testing performed by : [address] [phone] RDW CV 13.9 11.8 - 14.6 % [facility] Comment:Testing performed by : [facility], [address] [facility] [phone] NRBC abs 0.01 0.00 - 0.01 K/cumm [facility] Comment:Testing performed by : [facility], [address] [facility] [phone] Blood specimen (specimen) 03/30/2019 7:42 AM CDT 03/30/2019 7:43 AM CDT us Eren Cr MD LAB BLOOD ORDERABLES Final Re sult [facility] 1 [place] [address] documented in this encounter Visit Diagnoses Diagnosis Malignant neoplasm metastatic to liver (HCC) Neuroendocrine carcinoma (HCC) Other malignant neoplasm of unspecified site documented in this encounter Orders Appointment Requests Count Last Ordered Date Fi rst Ordered Date ONCBCN LAB APPOINTMENT 1 03/30/2019 documented in this encounter Care Teams Parts Classifier Relationship Specialty Start Date End Date Julio César Briseno MD PCP - General 10/01/16 Eren Cr MD Referring Physician Medical Oncology 11/25/18 Yohana Bowen MD Radiation Oncologist Radiation Oncology 11/25/18 documented as of this encounter
--- OUTSIDE RECORDS SUMMARY | 2024-06-26 02:20 | XMS_ITS | Encounter Summary ---
Author Organization [facility] Address [address] [place] [address] Phone Care Team Providers Care Forming Machine Upkeep Mechanic Helper Name Role Phone Julio César Briseno MD Primary Care Provider Eren Cr MD Unavailable [phone] Yohana Bowen MD Unavailable Encounter Details Date Type Department Care Team (Late st Contact Info) Description 12/24/2018 Orders Only [facility] Oncology [address] [place] [address] Mayela Williamson RN Social History Tobacco Use Types Packs/Day Years Used Date Smoking Tobacco: Never Smokeless Tobacco: Never Alcohol Use Standard Drinks/Week Comments Yes 1 (1 standard drink = 0.6 oz pur e alcohol) Comments No Sex and Gender Information Value Date Recorded Sex Assigned at Not on file Legal Sex Female 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 Gender Identity Not on file Sexual Orientation Straight 02/19/2021 9: 29 AM CDT Occupation Industry Job Start Date Job End Date retired Not on file Not on file Not on file documented as of this encounter Plan of Treatment Not on file documented as of this encounter Visit Diagnoses Not on filedocumented in this encounter Care Teams Forming Machine Upkeep Mechanic Helper Relationship Specialty Start Date End Date Julio César Briseno MD PCP - General 10/01/16 Eren Cr MD Referring Physician Medical Oncology 11/25/18 Yohana Bowen MD Radiation Oncologist Radiation Oncology 11/25/18 documented as of this encounter
--- OUTSIDE RECORDS SUMMARY | 2024-06-26 02:20 | XMS_ITS | Encounter Summary ---
Author Organization [facility] Facility Care Team Providers Care Testing And Regulating Chief Name Role Phone Julio César Briseno MD Primary Care Provider [phone] Eren Cr MD Unavailable [phone] Yohana Bowen MD Unavailable Encounter Details [...] file Legal Sex Female 2:41 PM CHARGE MASTER SPECIALIST Gender Identity Not on file Sexual Orientation Straight 02/19/2021 9: 29 AM CDT Occupation Industry Job Start Date Job End Date retired Not on file Not on file Not on file documented as of this encounter Plan of Treatment Not on file documented as of this encounter Visit Diagnoses Not on filedocumented in this encounter Care Teams Testing And Regulating Chief Relationship Specialty Start Date End Date Julio César Briseno MD PCP - General 10/01/16 Eren Cr MD Referring Physician Medical Oncology 11/25/18 Yohana Bowen MD Radiation Oncologist Radiation Oncology 11/25/18 documented as of this encounter
--- OUTSIDE RECORDS SUMMARY | 2024-06-26 02:20 | XMS_ITS | Encounter Summary ---
Author Organization [facility] Address [address] [place] [address] Phone Care Team Providers Care Line Leader Name Role Phone Julio César Briseno MD Primary Care Provider [phone] Eren Cr MD Unavailable Yohana Bowen MD Unavailable Encounter Details Date Type Department Care Team (Late st Contact Info) Description 01/19/2019 Orders Only [facility] Oncology [address] [facility] Advanced Medicine 7th [place] [address] [place] [address] Jeevan Martino, IRVING [address] [place], [place] [id number] Social History Tobacco Use Types Packs/Day Years Used Date Smoking Tobacco: Never Smokeless Tobacco: Never Alcohol Use Standard Drinks/Week Comments Yes 1 (1 standard drink = 0.6 oz pur e alcohol) Comments No Sex and Gender Information Value Date Recorded Sex Assigned at Not on file Legal 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
--- OUTSIDE RECORDS SUMMARY | 2024-06-26 02:20 | XMS_ITS | Encounter Summary ---
Author Organization [facility] Address [address] [place] [address] Care Team Providers Care Linux Admin Name Role Phone Julio César Briseno MD Primary Care Provider [phone] Eren Cr MD Unavailable [phone] Yohana Bowen MD Unavailable Reason for Referral * Diagnostic Imaging (Routine) - Closed Specialty Diagnoses / Procedures Referred By Contac t Referred To Contact Radiology Diagnoses Neuroendocrine carcinoma (HCC) Procedures IR PICC Line Placement > 5 Years Yohana Bowen MD Phone: tel: fax: [address] [address] Referral ID Status Reason Start Date Expiration Date Visits Re quested Visits Authorized [id number] Closed 02/05/2019 08/16/2020 1 1 Reason for Visit * Diagnostic Imaging (Routine) - Closed Specialty Diagnoses / Procedures Referred By Contac t Referred To Contact Radiology Diagnoses Neuroendocrine carcinoma (HCC) Procedures IR PICC Line Placement > 5 Years Yohana Bowen MD Phone: tel: fax: [address] [address] Referral ID Status Reason Start Date Expiration Date Visits Re quested Visits Authorized [id number] Closed 02/05/2019 08/16/2020 1 1 Encounter Details Date Type Department Care Team (Latest Contact Info) Description 02/17/2019 11:12 AM CDT - 02/17/2019 1:15 PM CDT Hospital Encounter [facility] [address] [place] [address] Yohana Bowen MD [address] [facility] [address] [place] [address] Neuroendocrine carcinoma (CMS/HCC) Discharge Disposition: Discharge to home or self care Social History Tobacco Use Types Packs/Day Years Used Date Smoking Tobacco: Never Smokeless Tobacco: Never Alcohol Use Standard Drinks/Week Comments Yes 1 (1 standard drink = 0.6 oz pur e alcohol) Comments No Sex and Gender Information Value Date Recorded Sex Assigned at Not on file 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 To contact an Interventional Radiologist at [facility] call [phone] Saturday through Saturday from 7:30am-4:30pm. At all other times call [phone] and ask that the Interventional Radiologist be paged. To contact an Interventional Radiologist at [facility] call [phone] Saturday through Saturday from 7:30am-3:30pm. Special instructions: [...] at Please come to: [] 3rd Floor [facility] [] 4th floor [facility] [] [facility] [] [facility] Please call [phone] to schedule a follow up appointment. You need to return in documented in this encounter Medications at Time of Discharge simvastatin (ZOCOR) 20 mg tablet Take 1 tablet (20 mg total) by mouth nightly ascorbic acid, vitamin C, 500 mg capsuleIndicati ons:supplement Take 1 tablet by mouth meat cutting block repairer before breakfast 07/04/2016 4 cephalexin (KEFLEX) 500 mg capsule cephalexin 500 mg capsule 9 cholecalciferol (VITAMIN D-3) 5,000 unit tablet Take 15,000 Units by mouth daily. 9 cholestyramine (QUESTRAN) 4 gram packet cholestyramine (with sugar) 4 gram powder for susp in a packet 9 clotrimazole-be tamethasone (LOTRISONE) cream Apply 1 Application topically daily as needed (rash) 4 coenzyme Q50-wudvriy E 100-5 mg-unit capsuleIndicati ons:supplement Take 1 tablet by mouth meat cutting block repairer before breakfast 4 diphenoxylate-a tropine (LOMOTIL) 2.5-0.025 [...] Brief Post Procedure Note Attending: Dr. Christopher Knit Goods Cutter Hand: Juliet Waddell Sedation/Anesthesia: Local Pre-Op/Pre-Procedure Diagnosis: neuroendocrine [...] was obtained. ??Prior to beginning the procedure, [place] Protocol was used to confirm the patient's [...] PICC placement for Lutathera treatment. ATTENDING PRESENCE: Chaytio Christopher M.D., the attending radiologist was present from the beginning to the end of the procedure. SEDATION: The patient did not require conscious sedation for the procedure. TECHNIQUE: The risks, benefits and alternatives were discussed and informed consent was obtained. Prior to beginning the procedure, [place] Protocol was used to confirm the patient's [...] MD) documented in this encounter Care Teams Linux Admin Relationship Specialty Start Date End Date Julio César Briseno MD PCP - General 10/01/16 Eren Cr MD Referring Physician Medical Oncology 11/25/18 Yohana Bowen MD Radiation Oncologist Radiation Oncology 11/25/18 documented as of this encounter
--- OUTSIDE RECORDS SUMMARY | 2024-06-26 02:20 | XMS_ITS | Encounter Summary ---
Author Organization [facility] Address [address] [place] [address] Care Team Providers Care Respite Coordinator Name Role Phone Julio César Briseno MD Primary Care Provider [phone] Eren Cr MD Unavailable Yohana Bowen MD Unavailable Reason for Referral * Diagnostic Imaging (Routine) - Closed Specialty Diagnoses / Procedures Referred By Contac t Referred To Contact Radiology Diagnoses Neuroendocrine carcinoma (HCC) Procedures IR PICC Line Placement > 5 Years Yohana Bowen MD Phone: tel: fax: [address] [address] Referral ID Status Reason Start Date Expiration Date Visits Re quested Visits Authorized [id number] Closed 12/05/2018 06/15/2020 1 1 Reason for Visit * Diagnostic Imaging (Routine) - Closed Specialty Diagnoses / Procedures Referred By Evelyne t Referred To Contact Radiology Diagnoses Neuroendocrine carcinoma (HCC) Procedures IR PICC Line Placement > 5 Years Yohana Bowen MD Phone: tel: fax: [address] [address] Referral ID Status Reason Start Date Expiration Date Visits Re quested Visits Authorized [id number] Closed 12/05/2018 06/15/2020 1 1 Encounter Details Date Type Department Care Team (Latest Contact Info) Description 12/23/2018 9:51 AM CDT - 12/23/2018 11:34 AM CDT Hospital Encounter [facility] Radiology [facility] [place] [address] [place] [address] Yohana Bowen MD [address] [facility] [address] [place] [address] Neuroendocrine carcinoma (CMS/HCC) Discharge Disposition: Discharge to home or self care Social History Tobacco Use Types Packs/Day Years Used Date Smoking Tobacco: Never Smokeless Tobacco: Never Alcohol Use Standard Drinks/Week Comments Yes 1 (1 standard drink = 0.6 oz pur e alcohol) Comments No Sex and Gender Information Value Date Recorded Sex Assigned at Not on file 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 To contact an Interventional Radiologist at [facility] call [phone] Saturday through Saturday from 7:30am-4:30pm. At all other times call [phone] and ask that the Interventional Radiologist be paged. To contact an Interventional Radiologist at [facility] call [phone] Saturday through Saturday from 7:30am-3:30pm. Special instructions: [...] at Please come to: [] 3rd Floor [facility] [] 4th floor [facility] [] [facility] [] [facility] Please call [phone] to schedule a follow up appointment. You need to return in documented in this encounter Medications at Time of Discharge simvastatin (ZOCOR) 20 mg tablet Take 1 tablet (20 mg total) by mouth nightly ascorbic acid, vitamin C, 500 mg capsuleIndicati ons:supplement Take 1 tablet by mouth wool cleaner before breakfast 07/04/2016 4 cephalexin (KEFLEX) 500 mg capsule cephalexin 500 mg capsule 9 cholecalciferol (VITAMIN D-3) 5,000 unit tablet Take 15,000 Units by mouth daily. 9 cholestyramine (QUESTRAN) 4 gram packet cholestyramine (with sugar) 4 gram powder for susp in a packet 9 clotrimazole-be tamethasone (LOTRISONE) cream Apply 1 Application topically daily as needed (rash) 4 coenzyme E87-piazdjf E 100-5 mg-unit capsuleIndicati ons:supplement Take 1 tablet by mouth wool cleaner before breakfast 4 diphenoxylate-a tropine (LOMOTIL) 2.5-0.025 [...] Post Procedure Note Attending: Latrice Leger M.D. Healthcare Technician: SERGEY Watts Sedation/Anesthesia: Local Pre-Op/Pre-Procedure Diagnosis: neuroendocrine [...] was obtained. ??Prior to beginning the procedure, [place] Protocol was used to confirm the patient's [...] was obtained. Prior to beginning the procedure, [place] Protocol was used to confirm the patient's [...] any) documented in this encounter Care Teams Respite Coordinator Relationship Specialty Start Date End Date Julio César Briseno MD PCP - General 10/01/16 Eren Cr MD Referring Physician Medical Oncology 11/25/18 Yohana Bowen MD Radiation Oncologist Radiation Oncology 11/25/18 documented as of this encounter
--- OUTSIDE RECORDS SUMMARY | 2024-06-26 02:20 | XMS_ITS | Encounter Summary ---
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) Procedures LA OCTREOTIDE INJECTION, DEPOT Octreotide 28 Day Cycles - Carcinoid Eren Cr MD [address] [place] [address] Phone: tel: fax: [facility] [address] [address] Phone: tel: fax: Referral ID Status Reason Start Date Expiration Date V isits Requested Visits Authorized [id number] Authorized 11/28/2017 02/05/2025 1 150 Encounter Details Date Type Department Care Team (Late st Contact Info) Description 12/29/2018 9:15 AM CDT Lab [facility] Oncology [address] [place] [address] [place] [id number] Malignant neoplasm metastatic to liver (CMS/HCC); Neuroendocrine carcinoma (CMS/HCC) Social History Tobacco Use Types Packs/Day Years Used Date Smoking Tobacco: Never Smokeless Tobacco: Never Alcohol Use Standard Drinks/Week Comments Yes 1 (1 standard drink = 0.6 oz pur e alcohol) Comments No Sex and Gender Information Value Date Recorded Sex Assigned at Not on file 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 Gender Identity Not on file Sexual Orientation [...] performed by : [facility], [address] [place] [phone] Lymphocyte abs 0.7(L) 1.2 - 3.3 K/cumm JASON BLACK Comment:Testing performed by : [facility], [address] [place] [phone] Monocyte abs 0.4 0.2 - 1.2 K/cumm CERNER BJ Comment:Testing performed by : [facility], [address] [place] [phone] Eosinophil abs 0.1 0.0 - 0.5 K/cumm CERNER BJ Comment:Testing performed by : [facility], [address] [place] [phone] Basophil abs 0.0 0.0 - 0.2 K/cumm CERNER BJ Comment:Testing performed by : [facility], [address] [place] [address] Neutrophil pct 76.3 % CERNER BJ Comment: Interpretive Data Percent cell count reference ranges are not reported, since discordance with absolute values may lead to misinterpretation of CBC data. Current Interpretive Data was last revised on 2017. Testing performed by: [facility], [address] [place] [phone] Lymphocyte pct 13.1 % CERNER BJ Comment: Interpretive Data Percent cell count reference ranges are not reported, since discordance with absolute values may lead to misinterpretation of CBC data. Current Interpretive Data was last revised on 2017. Testing performed by: [facility], [address] [place] [phone] Monocyte pct 7.9 % CERNER BJ Comment:Testing performed by : [facility], [address] [place] [address] Eosinophil pct 2.1 % CERNER BJ Comment:Testing performed by : [facility], [address] [place] [address] Basophil pct 0.6 % CERNER BJ Comment:Testing performed by : [facility], [address] [place] [phone] Blood specimen (specimen) 12/29/2018 9:37 AM CDT 12/29/2018 9:38 AM CDT us Eren Cr MD LAB BLOOD ORDERABLES Final Re sult [facility] [place] [address] * CBC with auto differential (12/29/2018 9:37 AM CDT) WBC 5.1 3.8 - 9.8 K/cumm C[facility]ER [facility] Comment:Testing performed by : [facility], [address] [place], [place] [phone] Hgb 14.5 12.1 - 15.1 g/dL C[facility]ER [facility] Comment:Testing performed by : [facility], [address] [place], [place] [phone] Hct 41.8 36.1 - 44.3 % [facility] Comment:Testing performed by : [place] [id number] Plt 159 140 - 440 K/cumm C[facility]ER [facility] Comment:Testing performed by : [place] [id number] MPV 8.4 6.8 - 10.4 fL [facility]ER [facility] Comment:Testing performed by : [place] [address] RBC 4.90 3.90 - 5.00 M/cumm [facility] Comment:Testing performed by : [place] [id number] MCV 85.3 80.0 - 97.6 fL [facility] Comment:Testing performed by : [place] [id number] MCH 29.6 26.7 - 33.7 pg [facility] Comment:Testing performed by : [place] [id number] MCHC 34.7 32.7 - 35.5 g/dL [facility] Comment:Testing performed by : [place] [id number] RDW CV 13.3 11.8 - 14.6 % [facility] Comment:Testing performed by : [place] [id number] NRBC abs 0.01 0.00 - 0.01 K/cumm [facility] Comment:Testing performed by : [address] [address] Blood specimen (specimen) 12/29/2018 9:37 AM CDT 12/29/2018 9:38 AM CDT Eren Cr MD LAB BLOOD ORDERABLES Final Re sult [facility] [place] [address] * (ABNORMAL) Comprehensive metabolic panel (12/29/2018 9:34 AM CDT) Sodium 142 135 - 145 mmol/L CERNER [facility] Potassium, pl 3.4 3.3 - 4.9 mmol/L CERNER [facility] Chloride 104 97 - 110 mmol/L [facility] CO2 29 22 - 32 mmol/L [facility] Anion gap 9 2 - 15 mmol/L [facility] BUN 10 8 - 25 mg/dL [facility] Creatinine 0.86 0.60 - 1.10 mg/dL [facility] Glucose 135 70 - 199 mg/dL [facility] [...] Calcium 11.1(H) 8.5 - 10.3 mg/dL CERNER [facility] Bilirubin, total 0.7 0.1 - 1.2 mg/dL [facility] Protein, pl 6.9 6.5 - 8.5 g/dL [facility] Albumin 4.3 3.5 - 5.0 g/dL [facility] Alk phos 81 40 - 130 Units/L CERNER [facility] ALT 15 7 - 45 Units/L [facility] AST 20 10 - 45 Units/L [facility] Blood specimen (specimen) 12/29/2018 9:34 AM CDT 12/29/2018 9:45 AM CDT Eren Cr MD LAB BLOOD ORDERABLES Final Re sult Performing Organization Address [facility] Co de Phone Number JASON BLACK [facility] [address] [place] [address] * (ABNORMAL) Chromogranin A (12/29/2018 9:34 AM CDT) Chromogranin A 203(H) <93 ng/mL [facility] Comment: Impaired renal or hepatic function or treatment with proton pump inhibitors may result in artifactual elevations of Chromogranin A. ADDITIONAL INFORMATION This test was developed and its performance characteristics determined by [facility] in a manner consistent with CLIA [...] absence of malignant disease. 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
--- OUTSIDE RECORDS SUMMARY | 2024-06-26 02:20 | XMS_ITS | Encounter Summary ---
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
--- OUTSIDE RECORDS SUMMARY | 2024-06-26 02:20 | XMS_ITS | Encounter Summary ---
Author Organization [facility] Healthcare Address [address] [place] [address] Care Team Providers Care Silk Conditioner Name Role Phone Julio César Briseno MD Primary Care Provider [phone] Eren Cr MD Unavailable [phone] Yohana Bowen MD Unavailable Encounter Details Date Type Department Care Team (Late st Contact Info) Description 02/13/2019 Telephone [facility] Radiology [address] [place] [address] Yvonne Villeda, RN Social History Tobacco Use Types Packs/Day Years Used Date Smoking Tobacco: Never Smokeless Tobacco: Never Alcohol Use Standard Drinks/Week Comments Yes 1 (1 standard drink = 0.6 oz pur e alcohol) Comments No Sex and Gender Information Value Date Recorded Sex Assigned at Not on file 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
--- OUTSIDE RECORDS SUMMARY | 2024-06-26 02:20 | XMS_ITS | Encounter Summary ---
Author Organization [facility] Address [address] [place] [address] Phone Care Team Providers Care Payroll Accounting Clerk Name Role Phone Julio César Briseno MD Primary Care Provider [phone] Eren Cr MD Unavailable [phone] Yohana Bowen MD Unavailable Encounter Details Date Type Department Care Team (Late st Contact Info) Description 11/25/2018 Orders Only [facility] Oncology [address] [place] [address] Roshni Gutierrez CMA Social History Tobacco Use Types Packs/Day Years Used Date Smoking Tobacco: Never Smokeless Tobacco: Never Alcohol Use Standard Drinks/Week Comments Yes 1 (1 standard drink = 0.6 oz pur e alcohol) Comments No Sex and Gender Information Value Date Recorded Sex Assigned at Not on file 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 Gender Identity Not on file Sexual Orientation Straight 02/19/2021 9: 29 AM CDT Occupation Industry Job Start Date Job End Date retired Not on file Not on file Not on file documented as of this encounter Progress Notes * Roshni Gutierrez MA - 11/25/2018 2:25 PM CDT Adam approved until 11/2019 approval# [id number] documented in this encounter Plan of Treatment Not on file documented as of this encounter Visit Diagnoses Not on filedocumented in this encounter Care Teams Payroll Accounting Clerk Relationship Specialty Start Date End Date Julio César Briseno MD PCP - General 10/01/16 Eren Cr MD Referring Physician Medical Oncology 11/25/18 Yohana Bowen MD Radiation Oncologist Radiation Oncology 11/25/18 documented as of this encounter
--- OUTSIDE RECORDS SUMMARY | 2024-06-26 02:20 | XMS_ITS | Encounter Summary ---
Author Organization [facility] Address [address] [place] [address] Phone Care Team Providers Care Lead Investigator Name Role Phone Julio César Briseno MD Primary Care Provider Eren Cr MD Unavailable [phone] Yohana Bowen MD Unavailable Encounter Details Date Type Department Care Team (Late st Contact Info) Description 03/24/2019 Orders Only [facility] [address] [place] [address] Mayela Williamson RN Social History Tobacco Use Types Packs/Day Years Used Date Smoking Tobacco: Never Smokeless Tobacco: Never Alcohol Use Standard Drinks/Week Comments Yes 1 (1 standard drink = 0.6 oz pur e alcohol) Comments No Sex and Gender Information Value Date Recorded Sex Assigned at Not on file 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
--- OUTSIDE RECORDS SUMMARY | 2024-06-26 02:20 | XMS_ITS | Encounter Summary ---
Author Organization [facility] Healthcare Address [address] [place] [address] Care Team Providers Care Agent Broker Name Role Phone Julio César Briseno MD Primary Care Provider [phone] Eren Cr MD Unavailable [phone] Yohana Bowen MD Unavailable Reason for Referral * Diagnostic Imaging (Routine) - Closed Specialty Diagnoses / Procedures Referred By Contac t Referred To Contact Radiology Diagnoses Neuroendocrine carcinoma (HCC) Procedures CT Chest Abdomen Pelvis W Contrast Yohana Bowen MD Phone: tel: fax: [address] [address] Referral ID Status Reason Start Date Expiration Date Visits Re quested Visits Authorized [id number] Closed 02/05/2019 08/16/2020 1 1 Reason for Visit * Diagnostic Imaging (Routine) - Closed Specialty Diagnoses / Procedures Referred By Contellen t Referred To Contact Radiology Diagnoses Neuroendocrine carcinoma (HCC) Procedures CT Chest Abdomen Pelvis W Contrast Yohana Bowen MD Phone: tel: fax: [address] [phone] Referral ID Status Reason Start Date Expiration Date Visits Re quested Visits Authorized [id number] Closed 02/05/2019 08/16/2020 1 1 Encounter Details Date Type Department Care Team (Latest Contact Info) Description 03/23/2019 1:03 PM CDT - 03/23/2019 11:59 PM CDT Hospital Encounter [facility] [address] [place] [address] Yohana Bowen MD [address] [facility] [address] [place] [address] Neuroendocrine carcinoma (CMS/HCC) Discharge Disposition: Discharge to home or self care Social History Tobacco Use Types Packs/Day Years Used Date Smoking Tobacco: Never Smokeless Tobacco: Never Alcohol Use Standard Drinks/Week Comments Yes 1 (1 standard drink = 0.6 oz pur e alcohol) Comments No Sex and Gender Information Value Date Recorded Sex Assigned at Not on file 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 9 cholestyramine (QUESTRAN) 4 gram packet cholestyramine (with sugar) 4 gram powder for susp in a packet 9 clotrimazole-be tamethasone (LOTRISONE) cream Apply 1 Application topically daily as needed (rash) 4 coenzyme [id number] 100-5 mg-unit capsuleIndicati ons:supplement Take 1 tablet by mouth mortgage loan officer before breakfast 4 diphenoxylate-a tropine (LOMOTIL) 2.5-0.025 [...] 03/23/2019 documented in this encounter Care Teams Agent Broker Relationship Specialty Start Date End Date Julio César Briseno MD PCP - General 10/01/16 Eren Cr MD Referring Physician Medical Oncology 11/25/18 Yohana Bowen MD Radiation Oncologist Radiation Oncology 11/25/18 documented as of this encounter
--- OUTSIDE RECORDS SUMMARY | 2024-06-26 02:20 | XMS_ITS | Encounter Summary ---
Author Organization [facility] Healthcare Address [address] [place] [address] Care Team Providers Care Customs And Border Protection Officer Name Role Phone Julio César Briseno MD Primary Care Provider [phone] Eren Cr MD Unavailable [phone] Yohana Bowen MD Unavailable Encounter Details Date Type Department Care Team (Late st Contact Info) Description 04/09/2019 Telephone [facility]iology [facility] [address] [place] [address] Shruti Renee RN Social History Tobacco Use Types Packs/Day Years Used Date Smoking Tobacco: Never Smokeless Tobacco: Never Alcohol Use Standard Drinks/Week Comments Yes 1 (1 standard drink = 0.6 oz pur e alcohol) Comments No Sex and Gender Information Value Date Recorded Sex Assigned at Not on file 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
--- OUTSIDE RECORDS SUMMARY | 2024-06-26 02:20 | XMS_ITS | Encounter Summary ---
Author Organization [facility] Address [address] [place] [address] Phone Care Team Providers Care Professional Programmer Analyst Name Role Phone Julio César Briseno MD Primary Care Provider Eren Cr MD Unavailable [phone] Yohana Bowen MD Unavailable Encounter Details Date Type Department Care Team (Late st Contact Info) Description 01/16/2019 Orders Only [facility] [address] [facility] Advanced Medicine 7th [place] [address] [place] [address] Jeevan Martino, [place] [address] [place], [place] [id number] Social History Tobacco Use Types Packs/Day Years Used Date Smoking Tobacco: Never Smokeless Tobacco: Never Alcohol Use Standard Drinks/Week Comments Yes 1 (1 standard drink = 0.6 oz pur e alcohol) Comments No Sex and Gender Information Value Date Recorded Sex Assigned at Not on file Legal Sex Female 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 Gender Identity Not on file Sexual Orientation Straight 02/19/2021 9: 29 AM CDT Occupation Industry Job Start Date Job End Date retired Not on file Not on file Not on file documented as of this encounter Plan of Treatment Not on file documented as of this encounter Visit Diagnoses Not on filedocumented in this encounter Care Teams Professional Programmer Analyst Relationship Specialty Start Date End Date Julio César Briseno MD PCP - General 10/01/16 Eren Cr MD Referring Physician Medical Oncology 11/25/18 Yohana Bowen MD Radiation Oncologist Radiation Oncology 11/25/18 documented as of this encounter
--- OUTSIDE RECORDS SUMMARY | 2024-06-26 02:20 | XMS_ITS | Encounter Summary ---
Author Organization [facility] Address [address] [place] [address] Phone Care Team Providers Care Adult Literacy Teacher Name Role Phone Julio César Briseno MD Primary Care Provider Eren Cr MD Unavailable [phone] Yohana Bowen MD Unavailable Encounter Details Date Type Department Care Team (Late st Contact Info) Description 01/16/2019 Telephone [facility] [address] [facility] Advanced Medicine 7th [place] [address] [place] [address] Jeevan Martino, [place] [address] [place], [place] [id number] Social History Tobacco Use Types Packs/Day Years Used Date Smoking Tobacco: Never Smokeless Tobacco: Never Alcohol Use Standard Drinks/Week Comments Yes 1 (1 standard drink = 0.6 oz pur e alcohol) Comments No Sex and Gender Information Value Date Recorded Sex Assigned at Not on file 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 Per [facility] specialty pharmacy [phone] the # 90 is over $ 300.00 [...] filedocumented in this encounter Care Teams Adult Literacy Teacher Relationship Specialty Start Date End Date Julio César Briseno MD PCP - General 10/01/16 Eren Cr MD Referring Physician Medical Oncology 11/25/18 Yohana Bowen MD Radiation Oncologist Radiation Oncology 11/25/18 documented as of this encounter
--- OUTSIDE RECORDS SUMMARY | 2024-06-26 02:20 | XMS_ITS | Encounter Summary ---
Author Organization [facility] Address [address] [place] [address] Phone Care Team Providers Care Pelletising Extruder Operator Name Role Phone Julio César Briseno MD Primary Care Provider Eren Cr MD Unavailable [phone] Yohana Bowen MD Unavailable Encounter Details Date Type Department Care Team (Late st Contact Info) Description 04/09/2019 Orders Only [facility] Oncology [address] [facility] Advanced Medicine 7th [place] [address] [place] [address] Sabrina Willard, LUG BREAKER AND WIRE PULLER [address] [place], [place] [id number] Social History Tobacco Use Types Packs/Day Years Used Date Smoking Tobacco: Never Smokeless Tobacco: Never Alcohol Use Standard Drinks/Week Comments Yes 1 (1 standard drink = 0.6 oz pur e alcohol) Comments No Sex and Gender Information Value Date Recorded Sex Assigned at Not on file Legal Sex Female 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 Gender Identity Not on file Sexual Orientation Straight 02/19/2021 9: 29 AM CDT Occupation Industry Job Start Date Job End Date retired Not on file Not on file Not on file documented as of this encounter Plan of Treatment Not on file documented as of this encounter Visit Diagnoses Not on filedocumented in this encounter Care Teams Pelletising Extruder Operator Relationship Specialty Start Date End Date Julio César Briseno MD PCP - General 10/01/16 Eren Cr MD Referring Physician Medical Oncology 11/25/18 Yohana Bowen MD Radiation Oncologist Radiation Oncology 11/25/18 documented as of this encounter
--- OUTSIDE RECORDS SUMMARY | 2024-06-26 02:20 | XMS_ITS | Encounter Summary ---
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); Neuroendocrine carcinoma (CMS/HCC) Social History Tobacco Use Types Packs/Day Years Used Date Smoking Tobacco: Never Smokeless Tobacco: Never Alcohol Use Standard Drinks/Week Comments Yes 1 (1 standard drink = 0.6 oz pur e alcohol) Comments No Sex and Gender Information Value Date Recorded Sex Assigned at Not on file Legal 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 Female 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 Gender Identity Not on file [...] and its performance characteristics determined by [facility] in a manner consistent with [...] Performed by: [facility] [address] [place] [address] Blood specimen (specimen) 03/02/2019 9:24 AM CDT 03/02/2019 10:29 AM CDT us Eren Cr MD LAB BLOOD ORDERABLES Final Re sult [facility] [place] [address] * (ABNORMAL) Comprehensive metabolic panel (03/02/2019 9:24 AM CDT) Sodium 146(H) 135 - 145 mmol/L [facility] Potassium, pl 3.7 3.3 - 4.9 mmol/L [facility] Chloride 110 97 - 110 mmol/L [facility] CO2 27 22 - 32 mmol/L [facility] Anion gap 9 2 - 15 mmol/L [facility] BUN 9 8 - 25 mg/dL [facility] Creatinine 0.83 0.60 - 1.10 mg/dL [facility] Glucose 127 70 - 199 mg/dL [facility] Calcium 10.7(H) 8.5 - 10.3 mg/dL [facility] Bilirubin, total 0.5 0.1 - 1.2 mg/dL [facility] Protein, pl 6.4(L) 6.5 - 8.5 g/dL [facility] Albumin 4.0 3.5 - 5.0 g/dL [facility] Alk phos 69 40 - 130 Units/L [facility] ALT 16 7 - 45 Units/L [facility] AST 25 10 - 45 Units/L [facility] Blood specimen (specimen) 03/02/2019 9:24 AM CDT 03/02/2019 9:38 AM CDT us Eren Cr MD LAB BLOOD ORDERABLES Final Re sult [facility] Department [place] [address] * (ABNORMAL) Differential, auto (03/02/2019 9:22 AM CDT) Neutrophil abs 2.3 1.8 - 6.6 K/cumm [facility] Comment:Testing performed by : [facility], [address] [place] [phone] Lymphocyte abs 0.3(L) 1.2 - 3.3 K/cumm [facility] Comment:Testing performed by : [facility], [address] [place] [phone] Monocyte abs 0.3 0.2 - 1.2 K/cumm [facility] Comment:Testing performed by : [facility], [address] [place] [phone] Eosinophil abs 0.1 0.0 - 0.5 K/cumm [facility] Comment:Testing performed by : [facility], [address] [place] [phone] Basophil abs 0.0 0.0 - 0.2 K/cumm [facility] Comment:Testing performed by : [facility], [address] [place] [phone] Neutrophil pct 75.3 % [facility] Comment: Interpretive Data Percent cell count reference ranges are not reported, since discordance with absolute values may lead to misinterpretation of CBC data. Current Interpretive Data was last revised on 2017. Testing performed by: [facility], [address] [place] [phone] Lymphocyte pct 9.2 % [facility] Comment: Interpretive Data Percent cell count reference ranges are not reported, since discordance with absolute values may lead to misinterpretation of CBC data. Current Interpretive Data was last revised on 2017. Testing performed by: [facility], [address] [place] [phone] Monocyte pct 11.2 % [facility] Comment:Testing performed by : [facility], [address] [place] [phone] Eosinophil pct 3.2 % [facility] Comment:Testing performed by : [facility], [address] [place] [phone] Basophil pct 1.1 % [facility] Comment:Testing performed by : [facility], [address] [place] [phone] Blood specimen (specimen) 03/02/2019 9:22 AM CDT 03/02/2019 9:25 AM CDT us Eren Cr MD LAB BLOOD ORDERABLES Final Re sult [facility] Department [place] [address] * (ABNORMAL) CBC with auto differential (03/02/2019 9:22 AM CDT) WBC 3.1(L) 3.8 - 9.8 K/cumm [facility] Comment:Testing performed by : [facility], [address] [place] [phone] Hgb 12.8 12.1 - 15.1 g/dL [facility] Comment:Testing performed by : [facility], [address] [place] [phone] Hct 36.6 36.1 - 44.3 % [facility] Comment:Testing performed by : [facility], [address] [place] [phone] Plt 118(L) 140 - 440 K/cumm [facility] Comment:Testing performed by : [facility], [address] [place] [phone] MPV 8.0 6.8 - 10.4 fL [facility] Comment:Testing performed by : [facility], [address] [place] [phone] RBC 4.15 3.90 - 5.00 M/cumm [facility] Comment:Testing performed by : [facility], [address] [place] [phone] MCV 88.1 80.0 - 97.6 fL [facility] Comment:Testing performed by : [address] [phone] MCH 30.8 26.7 - 33.7 pg [facility] Comment:Testing performed by : [facility], [address] [place] [phone] MCHC 34.9 32.7 - 35.5 g/dL [facility] Comment:Testing performed by : [facility], [address] [place] [phone] RDW CV 14.3 11.8 - 14.6 % [facility] Comment:Testing performed by : [facility], [address] [place] [phone] NRBC abs 0.02(H) 0.00 - 0.01 K/cumm [facility] Comment:Testing performed by : [facility], [address] [place] [phone] Blood specimen (specimen) 03/02/2019 9:22 AM CDT 03/02/2019 9:25 AM CDT Eren Cr MD LAB BLOOD ORDERABLES Final Re sult [facility] [place] [address] documented in this encounter Visit Diagnoses Diagnosis Malignant neoplasm metastatic to liver (HCC) Neuroendocrine carcinoma (HCC) Other malignant neoplasm of unspecified site documented in this encounter Orders Appointment Requests Count Last Ordered Date Fi rst Ordered Date ONCBCN LAB APPOINTMENT 1 03/02/2019 documented in this encounter Care Teams Gas Regulator Repairer Helper Relationship Specialty Start Date End Date Julio César Briseno MD PCP - General 10/01/16 Eren Cr MD Referring Physician Medical Oncology 11/25/18 Yohana Bowen MD Radiation Oncologist Radiation Oncology 11/25/18 documented as of this encounter
--- OUTSIDE RECORDS SUMMARY | 2024-06-26 02:20 | XMS_ITS | Encounter Summary ---
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
--- OUTSIDE RECORDS SUMMARY | 2024-06-26 02:20 | XMS_ITS | Encounter Summary ---
Author Organization [facility] Address [address] [place] [address] Phone Care Team Providers Care Junior Net Developer Name Role Phone Julio César Briseno MD Primary Care Provider Eren Cr MD Unavailable [phone] Yohana Bowen MD Unavailable Encounter Details Date Type Department Care Team (Late st Contact Info) Description 12/24/2018 Orders Only [facility] [address] 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
--- OUTSIDE RECORDS SUMMARY | 2024-06-26 02:20 | XMS_ITS | Encounter Summary ---
Author Organization [facility] Address [address] [place] [address] Phone Care Team Providers Care General Internist And Physician Leader Name Role Phone Julio César Briseno MD Primary Care Provider [phone] Eren Cr MD Unavailable [phone] Yohana Bowen MD Unavailable Encounter Details Date Type Department Care Team (Late st Contact Info) Description 02/16/2019 12:15 PM CDT Lab [facility] Oncology [facility] 7th [place] [address] [place] [id number] Neuroendocrine carcinoma (CMS/HCC) Social History Tobacco Use Types Packs/Day Years Used Date Smoking Tobacco: Never Smokeless Tobacco: Never Alcohol Use Standard Drinks/Week Comments Yes 1 (1 standard drink = 0.6 oz pur e alcohol) Comments No Sex and Gender Information Value Date Recorded Sex Assigned at Not on file 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 Gender Identity Not on file Sexual [...] K/cumm [facility] Comment:Testing performed by : [facility], [address] [place] [phone] Lymphocyte abs 0.6(L) 1.2 - 3.3 K/cumm [facility] Comment:Testing performed by : [facility], [address] [place] [phone] Monocyte abs 0.5 0.2 - 1.2 K/cumm [facility] Comment:Testing performed by : [facility], [address] [place] [phone] Eosinophil abs 0.1 0.0 - 0.5 K/cumm [facility] Comment:Testing performed by : [facility], [address] [place] [phone] Basophil abs 0.0 0.0 - 0.2 K/cumm [facility] Comment:Testing performed by : [facility], [address] [place] [phone] Neutrophil pct 71.6 % [facility] Comment: Interpretive Data Percent cell count reference ranges are not reported, since discordance with absolute values may lead to misinterpretation of CBC data. Current Interpretive Data was last revised on 2017. Testing performed by: [facility], [address] [place] [phone] Lymphocyte pct 14.5 % [facility] Comment: Interpretive Data Percent cell count reference ranges are not reported, since discordance with absolute values may lead to misinterpretation of CBC data. Current Interpretive Data was last revised on 2017. Testing performed by: [facility], [address] [place] [phone] Monocyte pct 11.7 % JASON BLACK Comment:Testing performed by : [facility], [address] [place] [phone] Eosinophil pct 1.3 % [facility]ON BLACK Comment:Testing performed by : [facility], [address] [place] [phone] Basophil pct 0.9 % JASON BLACK Comment:Testing performed by : [facility], [address] [place] [phone] Blood specimen (specimen) 02/16/2019 12:22 PM CDT 02/16/2019 12:27 PM CDT us Yohana Bowen MD LAB BLOOD ORDERABLES Final Resul t [facility] [place] [address] * (ABNORMAL) CBC with auto differential (02/16/2019 12:22 PM CDT) WBC 4.3 3.8 - 9.8 K/cumm JASON BLACK Comment:Testing performed by : [facility], [address] [place] [phone] Hgb 14.1 12.1 - 15.1 g/dL JASON BLACK Comment:Testing performed by : [facility], [address] [place] [phone] Hct 40.6 36.1 - 44.3 % JASON BLACK Comment:Testing performed by : [address] [phone] Plt 139(L) 140 - 440 K/cumm JASON BLACK Comment:Testing performed by : [address] [phone] MPV 8.1 6.8 - 10.4 fL JASON BLACK Comment:Testing performed by : [facility], [address] [place] [phone] RBC 4.68 3.90 - 5.00 M/cumm [facility] Comment:Testing performed by : [facility], [address] [place] [phone] MCV 86.8 80.0 - 97.6 fL JASON BLACK Comment:Testing performed by : [facility], [address] [place] [phone] MCH 30.1 26.7 - 33.7 pg JASON BLACK Comment:Testing performed by : [facility], [address] [place] [phone] MCHC 34.7 32.7 - 35.5 g/dL JASON BLACK Comment:Testing performed by : [facility], [address] [place] [phone] RDW CV 13.9 11.8 - 14.6 % [facility] Comment:Testing performed by : [facility], [address] [place] [phone] NRBC abs 0.00 0.00 - 0.01 K/cumm [facility] Comment:Testing performed by : [facility], [address] [place] [phone] Blood specimen (specimen) 02/16/2019 12:22 PM CDT 02/16/2019 12:27 PM CDT us Yohana Bowen MD LAB BLOOD ORDERABLES Final Resul t [facility] Department [place] [address] * (ABNORMAL) Comprehensive metabolic panel (02/16/2019 12:21 PM CDT) Sodium 140 135 - 145 mmol/L [facility] Potassium, pl 3.9 3.3 - 4.9 mmol/L JASON BLACK Comment:Hemolyzed; (++); pot assium value may be falsely elevated by as much as 0.3 - 0.5 mmol/L. Suggest redraw and reanalysis. Chloride 102 97 - 110 mmol/L JASON BLACK CO2 28 22 - 32 mmol/L [facility] Anion gap 10 2 - 15 mmol/L [facility] BUN 16 8 - 25 mg/dL [facility] Creatinine 0.81 0.60 - 1.10 mg/dL [facility] Glucose 119 70 - 199 mg/dL [facility] [...] [facility] Bilirubin, total 0.5 0.1 - 1.2 mg/dL [facility] Protein, pl 6.8 6.5 - 8.5 g/dL [facility] Albumin 4.2 3.5 - 5.0 g/dL [facility] Alk phos 80 40 - 130 Units/L [facility] ALT 19 7 - 45 Units/L [facility] AST 29 10 - 45 Units/L [facility] Comment:Hemolyzed; result ma y be falsely elevated. Blood specimen (specimen) 02/16/2019 12:21 PM CDT 02/16/2019 1:02 PM CDT us Yohana Bowen MD LAB BLOOD ORDERABLES Final Resul t [facility] Department [place] [address] * (ABNORMAL) Immune deficiency profile (02/16/2019 12:21 PM CDT) CD4 pct 51 31 - 64 % [facility] CD4 Absolute 322(L) 365 - 1,294 cells/mcL [facility] CD8 pct 28 12 - 40 % [facility] CD8 Absolute 180(L) 187 - 781 cells/mcL [facility] CD4/CD8 ratio 1.8 0.9 - 4.[address] [facility] Blood specimen (specimen) 02/16/2019 12:21 PM CDT 02/16/2019 12:49 PM CDT us Yohana Bowen MD LAB BLOOD ORDERABLES Final Resul t [facility] [place] [address] documented in this encounter Visit Diagnoses Diagnosis Neuroendocrine carcinoma (HCC) Other malignant neoplasm of unspecified site documented in this encounter Care Teams General Internist And Physician Leader Relationship Specialty Start Date End Date Julio César Briseno MD PCP - General 10/01/16 Eren Cr MD Referring Physician Medical Oncology 11/25/18 Yohana Bowen MD Radiation Oncologist Radiation Oncology 11/25/18 documented as of this encounter
--- OUTSIDE RECORDS SUMMARY | 2024-06-26 02:20 | XMS_ITS | Encounter Summary ---
Author Organization [facility] Healthcare Address [address] [place] [address] Care Team Providers Care Nuclear Reactor Operator Name Role Phone Julio César Briseno MD Primary Care Provider [phone] Eren Cr MD Unavailable Yohana Bowen MD Unavailable Encounter Details Date Type Department Care Team (Late st Contact Info) Description 02/18/2019 7:00 AM CDT Office Visit [facility] Radiation Oncology [address] [place] [address] Advanced Medicine [facility] [place] [address] Yohana Bowen MD [address] [place] [address] [address] [place] [address] Meagan Amaya MD [address] [facility] [address] [place] [address] Neuroendocrine carcinoma (CMS/HCC) (Primary Dx) Social History Tobacco Use Types Packs/Day Years Used Date Smoking Tobacco: Never Smokeless Tobacco: Never Alcohol Use Standard Drinks/Week Comments Yes 1 (1 standard drink = 0.6 oz pur e alcohol) Comments No Sex and Gender Information Value Date Recorded Sex Assigned at Not on file Legal 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
--- OUTSIDE RECORDS SUMMARY | 2024-06-26 02:20 | XMS_ITS | Encounter Summary ---
Author Organization [facility] Address [address] [place] [address] Phone Care Team Providers Care Fire Hydrant Mechanic Name Role Phone Julio César Briseno MD Primary Care Provider [phone] Eren Cr MD Unavailable [phone] Yohana Bowen MD Unavailable Encounter Details Date Type Department Care Team (Late st Contact Info) Description 03/16/2019 Orders Only [facility] Oncology [address] [place] [address] [place] Cisneros Social History Tobacco Use Types Packs/Day Years Used Date Smoking Tobacco: Never Smokeless Tobacco: Never Alcohol Use Standard Drinks/Week Comments Yes 1 (1 standard drink = 0.6 oz pur e alcohol) Comments No Sex and Gender Information Value Date Recorded Sex Assigned at Not on file 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
--- OUTSIDE RECORDS SUMMARY | 2024-06-26 02:20 | XMS_ITS | Encounter Summary ---
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 Gender Identity Not on file Sexual [...] K/cumm CERNER [facility] Comment:Testing performed by : [facility], [address] [place] [address] Hgb 14.5 12.1 - 15.1 g/dL CERNER BJ Comment:Testing performed by : [place] [address] Hct 41.8 36.1 - 44.3 % CERNER BJ Comment:Testing performed by : [facility], [address] [place] [address] Plt 159 140 - 440 K/cumm CERMINNIE BJ Comment:Testing performed by : [place] [address] MPV 8.4 6.8 - 10.4 fL CERNER BJ Comment:Testing performed by : [place] [address] RBC 4.90 3.90 - 5.00 M/cumm CERNER BJ Comment:Testing performed by : [place] [address] MCV 85.3 80.0 - 97.6 fL CERNER BJ Comment:Testing performed by : [place] [address] MCH 29.6 26.7 - 33.7 pg CERNER BJ Comment:Testing performed by : [place] [address] MCHC 34.7 32.7 - 35.5 g/dL CERNER BJ Comment:Testing performed by : [place] [address] RDW CV 13.3 11.8 - 14.6 % CERNER BJ Comment:Testing performed by : [place] [address] NRBC abs 0.01 0.00 - 0.01 K/cumm CERMINNIE BJ Comment:Testing performed by : [place] [address] Blood specimen (specimen) 12/29/2018 9:37 AM CDT 12/29/2018 9:38 AM CDT Eren Cr MD LAB BLOOD ORDERABLES Final Re sult Performing Organization Address [facility] Co de Phone Number JASON [facility] [address] [place] [address] * (ABNORMAL) Chromogranin A (12/29/2018 9:34 AM CDT) Chromogranin A 203(H) <93 ng/mL [facility] Comment: Impaired renal or hepatic function or treatment with proton pump inhibitors may result in artifactual elevations of Chromogranin A. ADDITIONAL INFORMATION This test was developed and its performance characteristics determined by [facility] in a manner consistent with CLIA requirements. [...] of malignant disease. Test Performed by: [facility] [place] [address] [place] [address] Blood specimen (specimen) 12/29/2018 9:34 AM CDT 12/29/2018 11:35 AM CDT us Eren Cr MD LAB BLOOD ORDERABLES Final Re sult Performing Organization Address [facility]/ZIP Co de Phone Number [facility] [address] [place] [address] * (ABNORMAL) Comprehensive metabolic panel (12/29/2018 9:34 AM CDT) Sodium 142 135 - 145 mmol/L [facility] Potassium, pl 3.4 3.3 - 4.9 mmol/L [facility] Chloride 104 97 - 110 mmol/L [facility] CO2 29 22 - 32 mmol/L [facility] Anion gap 9 2 - 15 mmol/L [facility] BUN 10 8 - 25 mg/dL [facility] Creatinine 0.86 0.60 - 1.10 mg/dL [facility] Glucose 135 70 - 199 mg/dL [facility] [...] 2017. Calcium 11.1(H) 8.5 - 10.3 mg/dL [facility] Bilirubin, total 0.7 0.1 - 1.2 mg/dL [facility] Protein, pl 6.9 6.5 - 8.5 g/dL [facility] Albumin 4.3 3.5 - 5.0 g/dL [facility] Alk phos 81 40 - 130 Units/L [facility] ALT 15 7 - 45 Units/L [facility] AST 20 10 - 45 Units/L [facility] Blood specimen (specimen) 12/29/2018 9:34 AM CDT 12/29/2018 9:45 AM CDT Eren Cr MD LAB BLOOD ORDERABLES Final Re sult [facility] One [facility] Department of Laboratories [place], [place] [id number] documented in this encounter Visit Diagnoses Diagnosis Neuroendocrine carcinoma (HCC)- Primary Other malignant neoplasm of unspecified site 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
--- OUTSIDE RECORDS SUMMARY | 2024-06-26 02:20 | XMS_ITS | Encounter Summary ---
Author Organization [facility] Healthcare Address [address] [place] [address] Care Team Providers Care Vine Pruner Name Role Phone Julio César Briseno MD Primary Care Provider [phone] Eren Cr MD Unavailable [phone] Yohana Bowen MD Unavailable Encounter Details Date Type Department Care Team (Late st Contact Info) Description 12/19/2018 Telephone [facility] Radiology [facility] [place] [address] [place] [address] Danae Ayers RN Social History Tobacco Use Types Packs/Day Years Used Date Smoking Tobacco: Never Smokeless Tobacco: Never Alcohol Use Standard Drinks/Week Comments Yes 1 (1 standard drink = 0.6 oz pur e alcohol) Comments No Sex and Gender Information Value Date Recorded Sex Assigned at Not on file 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
--- OUTSIDE RECORDS SUMMARY | 2024-06-26 02:20 | XMS_ITS | Encounter Summary ---
Author Organization [facility] Healthcare Address [address] [place] [address] Care Team Providers Care Dish Network Installer Name Role Phone Julio César Briseno MD Primary Care Provider Eren Cr MD Unavailable Yohana Bowen MD Unavailable Encounter Details Date Type Department Care Team (Late st Contact Info) Description 12/24/2018 7:00 AM CDT Office Visit [facility] Radiation Oncology [facility] [place] [address] Julio César Daniel MD [address] [facility] [address] [place] [address] Yohana Bowen MD [address] [facility] # LL LL [address] [place] [address] 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); Neuroendocrine carcinoma (CMS/HCC) Social History Tobacco Use Types Packs/Day Years Used Date Smoking Tobacco: Never Smokeless Tobacco: Never Alcohol Use Standard Drinks/Week Comments Yes 1 (1 standard drink = 0.6 oz pur e alcohol) Comments No Sex and Gender Information Value Date Recorded Sex Assigned at Not on file Legal Sex Female 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 Gender Identity Not on file Sexual [...] Neutrophil abs 3.9 1.7 - 6.5 K/cumm [facility] Imm gran abs 0.0 0.0 - 0.1 K/cumm [facility] Lymphocyte abs 1.2 0.8 - 3.3 K/cumm [facility] Monocyte abs 0.8 0.2 - 0.8 K/cumm [facility] Eosinophil abs 0.1 0.0 - 0.5 K/cumm [facility] Basophil abs 0.0 0.0 - 0.1 K/cumm [facility] Neutrophil pct 64.7 % [facility] Comment: Interpretive Data Percent cell count reference ranges are not reported, since discordance with absolute values may lead to misinterpretation of CBC data. Current Interpretive Data was last revised on 2017. Imm gran pct 0.5 % [facility] Comment: Interpretive Data Percent cell count reference ranges are not reported, since discordance with absolute values may lead to misinterpretation of CBC data. Current Interpretive Data was last revised on 2017. Lymphocyte pct 19.2 % [facility] Comment: Interpretive Data Percent cell count reference ranges are not reported, since discordance with absolute values may lead to misinterpretation of CBC data. Current Interpretive Data was last revised on 2017. Monocyte pct 13.9 % [facility] Comment: Interpretive Data Percent cell count reference ranges are not reported, since discordance with absolute values may lead to misinterpretation of CBC data. Current Interpretive Data was last revised on 2017. Eosinophil pct 1.2 % [facility] Comment: Interpretive Data Percent cell count reference ranges are not reported, since discordance with absolute values may lead to misinterpretation of CBC data. Current Interpretive Data was last revised on 2017. Basophil pct 0.5 % [facility] Comment: Interpretive Data Percent cell count reference ranges are not reported, since discordance with absolute values may lead to misinterpretation of CBC data. Current Interpretive Data was last revised on 2017. Blood specimen (specimen) 12/24/2018 7:58 AM CDT 12/24/2018 1:45 PM CDT us Yohana Bowen MD LAB BLOOD ORDERABLES Final Resul t Performing Organization Address [facility] Co de Phone Number [facility] Department [place] [address] * (ABNORMAL) CBC with auto differential (12/24/2018 7:58 AM CDT) [facility] WBC 6.0 3.8 - 9.9 K/cumm [facility] Hgb 13.1 11.9 - 15.5 g/dL [facility] Hct 39.6 35.6 - 45.5 % [facility] Plt 138(L) 150 - 400 K/cumm [facility] MPV 10.9 9.1 - 12.3 fL [facility] RBC 4.57 3.90 - 5.20 M/cumm [facility] MCV 86.7 81.3 - 96.4 fL [facility] MCH 28.7 27.1 - 33.3 pg [facility] MCHC 33.1 32.3 - 35.7 g/dL [facility] RDW CV 13.1 11.1 - 14.9 % [facility] RDW SD 40.9 35.7 - 48.1 fL [facility] NRBC abs 0.00 0.00 - 0.01 K/cumm [facility] Blood specimen (specimen) 12/24/2018 7:58 AM CDT 12/24/2018 1:45 PM CDT Yohana Bowen MD LAB BLOOD ORDERABLES Final Resul t Performing Organization Address [facility] Co de Phone Number [facility] Department [place] [address] * Immune deficiency profile (12/24/2018 7:58 AM CDT) Pathologist [facility] CD4 pct 31 31 - 64 % [facility] CD4 Absolute 390 365 - 1,294 cells/mcL [facility] CD8 pct 28 12 - 40 % [facility] CD8 Absolute 353 187 - 781 cells/mcL [facility] CD4/CD8 ratio 1.1 0.9 - 4.4 [facility] Blood specimen (specimen) 12/24/2018 7:58 AM CDT 12/24/2018 1:44 PM CDT us Yohana Bowen MD LAB BLOOD ORDERABLES Final Resul t [facility] One [facility] Department [place] [address] documented in this encounter Visit Diagnoses Diagnosis [...] /hr documented in this encounter Care Teams Dish Network Installer Relationship Specialty Start Date End Date Julio César Briseno MD PCP - General 10/01/16 Eren Cr MD Referring Physician Medical Oncology 11/25/18 Yohana Bowen MD Radiation Oncologist Radiation Oncology 11/25/18 documented as of this encounter
--- OUTSIDE RECORDS SUMMARY | 2024-06-26 02:20 | XMS_ITS | Encounter Summary ---
Author Organization [facility] Address [address] [place] [address] Care Team Providers Care Special Education Kindergarten Teacher Name Role Phone Julio César Briseno MD Primary Care Provider [phone] Eren Cr MD Unavailable [phone] Yohana Bowen MD Unavailable Reason for Referral * Diagnostic Imaging (Routine) - Closed Specialty Diagnoses / Procedures Referred By Contac t Referred To Contact Radiology Diagnoses Neuroendocrine carcinoma (HCC) Procedures CT Chest Abdomen Pelvis W Contrast Yohana Bowen MD Phone: tel: fax: [address] [address] Referral ID Status Reason Start Date Expiration Date Visits Re quested Visits Authorized [id number] Closed 02/05/2019 08/16/2020 1 1 * Diagnostic Imaging (Routine) - Closed Specialty Diagnoses / Procedures Referred By Contellen t Referred To Contact Radiology Diagnoses Neuroendocrine carcinoma (HCC) Procedures IR PICC Line Placement > 5 Years Yohana Bowen MD Phone: tel: fax: [address] [address] Referral ID Status Reason Start Date Expiration Date Visits Re quested Visits Authorized [id number] Closed 02/05/2019 08/16/2020 1 1 Encounter Details Date Type Department Care Team (Late st Contact Info) Description 02/05/2019 Orders Only [facility] Advanced Medicine Radiation Oncology [address] [facility] [place] [address] Hien Soto RN Neuroendocrine carcinoma (CMS/HCC) (Primary Dx) Social History Tobacco Use Types Packs/Day Years Used Date Smoking Tobacco: Never Smokeless Tobacco: Never Alcohol Use Standard Drinks/Week Comments Yes 1 (1 standard drink = 0.6 oz pur e alcohol) Comments No Sex and Gender Information Value Date Recorded Sex Assigned at Not on file 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 NPO 6 hours prior to procedure, patient will need a cdl company flatbed driver. If on any blood thinners, stop [...] was obtained. ??Prior to beginning the procedure, Anderson Protocol was used to confirm the patient's [...] was obtained. Prior to beginning the procedure, Anderson Protocol was used to confirm the patient's [...] WBC 4.3 3.8 - 9.8 K/cumm [facility] Comment:Testing performed by : [facility], [address] [place] [phone] Hgb 14.1 12.1 - 15.1 g/dL [facility] Comment:Testing performed by : [facility], [address] [place] [phone] Hct 40.6 36.1 - 44.3 % [facility] Comment:Testing performed by : [facility], [address] [place], [place] [phone] Plt 139(L) 140 - 440 K/cumm [facility] Comment:Testing performed by : [facility], [address] [place], [place] [phone] MPV 8.1 6.8 - 10.4 fL [facility] Comment:Testing performed by : [facility], [address] [place], [place] [phone] RBC 4.68 3.90 - 5.00 M/cumm [facility] Comment:Testing performed by : [facility], [address] [place], [place] [phone] MCV 86.8 80.0 - 97.6 fL [facility] Comment:Testing performed by : [place] [id number] MCH 30.1 26.7 - 33.7 pg [facility] Comment:Testing performed by : [facility], [address] [place], [place] [phone] MCHC 34.7 32.7 - 35.5 g/dL [facility] Comment:Testing performed by : [facility], [address] [place], [place] [phone] RDW CV 13.9 11.8 - 14.6 % [facility] Comment:Testing performed by : [address] [phone] NRBC abs 0.00 0.00 - 0.01 K/cumm [facility] Comment:Testing performed by : [facility], [address] [place] [phone] Blood specimen (specimen) 02/16/2019 12:22 PM CDT 02/16/2019 12:27 PM CDT us Yohana Bowen MD LAB BLOOD ORDERABLES Final Resul t [facility] Department [place] [address] * (ABNORMAL) Immune deficiency profile (02/16/2019 12:21 PM CDT) [facility] CD4 pct 51 31 - 64 % [facility] CD4 Absolute 322(L) 365 - 1,294 cells/mcL [facility] CD8 pct 28 12 - 40 % [facility] CD8 Absolute 180(L) 187 - 781 cells/mcL [facility] CD4/CD8 ratio 1.8 0.9 - 4.4 [facility] Blood specimen (specimen) 02/16/2019 12:21 PM CDT 02/16/2019 12:49 PM CDT us Yohana Bowen MD LAB BLOOD ORDERABLES Final Resul t [facility] [place] [address] * (ABNORMAL) Comprehensive metabolic panel (02/16/2019 12:21 PM CDT) [facility] Sodium 140 135 - 145 mmol/L [facility] Potassium, pl 3.9 3.3 - 4.9 mmol/L [facility] Comment:Hemolyzed; (++); pot assium value may be falsely elevated by as much as 0.3 - 0.5 mmol/L. Suggest redraw and reanalysis. Chloride 102 97 - 110 mmol/L [facility] CO2 28 22 - 32 mmol/L [facility] Anion gap 10 2 - 15 mmol/L [facility] BUN 16 8 - 25 mg/dL [facility] Creatinine 0.81 0.60 - 1.10 mg/dL [facility] Glucose 119 70 - 199 mg/dL [facility] [...] 10.9(H) 8.5 - 10.3 mg/dL [facility] Bilirubin, total 0.5 0.1 - 1.2 mg/dL [facility] Protein, pl 6.8 6.5 - 8.5 g/dL [facility] Albumin 4.2 3.5 - 5.0 g/dL [facility] Alk phos 80 40 - 130 Units/L [facility] ALT 19 7 - 45 Units/L [facility] AST 29 10 - 45 Units/L [facility] Comment:Hemolyzed; result ma y be falsely elevated. Blood specimen (specimen) 02/16/2019 12:21 PM CDT 02/16/2019 1:02 PM CDT Yohana Bowen MD LAB BLOOD ORDERABLES Final Resul t [facility] [place] [address] documented in this encounter Visit Diagnoses Diagnosis Neuroendocrine carcinoma (HCC)- Primary Other malignant neoplasm of unspecified site 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 documented in this encounter Care Teams Special Education Kindergarten Teacher Relationship Specialty Start Date End Date Julio César Briseno MD PCP - General 10/01/16 Eren rC MD Referring Physician Medical Oncology 11/25/18 Yohana Bowen MD Radiation Oncologist Radiation Oncology 11/25/18 documented as of this encounter
--- OUTSIDE RECORDS SUMMARY | 2024-06-26 02:20 | XMS_ITS | Encounter Summary ---
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 Gender Identity Not on file Sexual Orientation Straight 02/19/2021 9: 29 AM CDT Occupation Industry Job Start Date Job End Date retired Not on file Not on file Not on file documented as of this encounter Plan of Treatment Not on file documented as of this encounter Visit Diagnoses Not on filedocumented in this encounter Care Teams Therapeutic Strategy Lead Relationship Specialty Start Date End Date Julio César Briseno MD PCP - General 10/01/16 Eren Cr MD Referring Physician Medical Oncology 11/25/18 Yohana Bowen MD Radiation Oncologist Radiation Oncology 11/25/18 documented as of this encounter
--- OUTSIDE RECORDS SUMMARY | 2024-06-26 02:20 | XMS_ITS | Encounter Summary ---
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) Procedures CA OCTREOTIDE INJECTION, DEPOT Octreotide 28 Day Cycles - Carcinoid Eren Cr MD [address] [address] [place] [address] Phone: tel: fax: [address] [address] Phone: tel: fax: Referral ID Status Reason Start Date Expiration Date V isits Requested Visits Authorized [id number] Authorized 11/28/2017 02/05/2025 1 150 Encounter Details Date Type Department Care Team (Late st Contact Info) Description 12/24/2018 4:00 PM CDT Infusion [facility] Oncology [address] [place] [address] for Advanced Medicine 7th [place] [address] 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); Neuroendocrine carcinoma (CMS/HCC) Social History Tobacco Use Types Packs/Day Years Used Date Smoking Tobacco: Never Smokeless Tobacco: Never Alcohol Use Standard Drinks/Week Comments Yes 1 (1 standard drink = 0.6 oz pur e alcohol) Comments No Sex and Gender Information Value Date Recorded Sex Assigned at Not on file 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
--- OUTSIDE RECORDS SUMMARY | 2024-06-26 02:20 | XMS_ITS | Encounter Summary ---
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) Procedures ID OCTREOTIDE INJECTION, DEPOT Octreotide 28 Day Cycles - Carcinoid Eren Cr MD [address] [address] [place] [address] Phone: tel: fax: [facility] [address] [address] Phone: tel: fax: Referral ID Status Reason Start Date Expiration Date V isits Requested Visits Authorized [id number] Authorized 11/28/2017 02/05/2025 1 150 Encounter Details Date Type Department Care Team (Late st Contact Info) Description 12/29/2018 10:00 AM CDT Office Visit [facility] Oncology [address] [place] [address] [place] [address] Eren Cr MD [address] [facility] [address] [place] [address] Malignant neoplasm metastatic to liver (CMS/HCC); Neuroendocrine carcinoma (CMS/HCC) Social History Tobacco Use Types Packs/Day Years Used Date Smoking Tobacco: Never Smokeless Tobacco: Never Alcohol Use Standard Drinks/Week Comments Yes 1 (1 standard drink = 0.6 oz pur e alcohol) Comments No Sex and Gender Information Value Date Recorded Sex Assigned at Not on file 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 She had her first PRRT [...] > 5 YEARS N/A 12/23/2018 ? ? ID REMOVAL OF TONSILS,<10 Y/O [...] a packet, Disp: , Rfl: ??? coenzyme V48-lunbrzi E (CO Q-10, WITH VIT E,) 100-5 [...] CDT) Chromogranin A 232(H) <93 ng/mL [facility] Comment: [...] Test Performed by: [facility] [address] [place] [address] Blood specimen (specimen) 03/02/2019 9:24 AM CDT 03/02/2019 10:29 AM CDT us Eren Cr MD LAB BLOOD ORDERABLES Final Re sult [facility] Department [place] [address] * (ABNORMAL) Comprehensive metabolic panel (03/02/2019 9:24 AM CDT) Sodium 146(H) 135 - 145 mmol/L [facility] Potassium, pl 3.7 3.3 - 4.9 mmol/L [facility] Chloride 110 97 - 110 mmol/L [facility] CO2 27 22 - 32 mmol/L [facility] Anion gap 9 2 - 15 mmol/L [facility] BUN 9 8 - 25 mg/dL [facility] Creatinine 0.83 0.60 - 1.10 mg/dL [facility] Glucose 127 70 - 199 mg/dL [facility] [...] 2017. Calcium 10.7(H) 8.5 - 10.3 mg/dL [facility] Bilirubin, total 0.5 0.1 - 1.2 mg/dL [facility] Protein, pl 6.4(L) 6.5 - 8.5 g/dL [facility] Albumin 4.0 3.5 - 5.0 g/dL [facility] Alk phos 69 40 - 130 Units/L [facility] ALT 16 7 - 45 Units/L [facility] AST 25 10 - 45 Units/L [facility] Blood specimen (specimen) 03/02/2019 9:24 AM CDT 03/02/2019 9:38 AM CDT us Eren Cr MD LAB BLOOD ORDERABLES Final Re sult [facility] Department [place] [address] * (ABNORMAL) CBC with auto differential (03/02/2019 9:22 AM CDT) WBC 3.1(L) 3.8 - 9.8 K/cumm [facility] Comment:Testing performed by : [facility], [address] [place] [phone] Hgb 12.8 12.1 - 15.1 g/dL [facility] Comment:Testing performed by : [facility], [address] [place] [phone] Hct 36.6 36.1 - 44.3 % [facility] Comment:Testing performed by : [facility], [address] [place] [phone] Plt 118(L) 140 - 440 K/cumm [facility] Comment:Testing performed by : [facility], [address] [place] [phone] MPV 8.0 6.8 - 10.4 fL [facility] Comment:Testing performed by : [address] [phone] RBC 4.15 3.90 - 5.00 M/cumm [facility] Comment:Testing performed by : [address] [phone] MCV 88.1 80.0 - 97.6 fL [facility] Comment:Testing performed by : [facility], [address] [place] [phone] MCH 30.8 26.7 - 33.7 pg [facility] Comment:Testing performed by : [facility], [address] [place] [phone] MCHC 34.9 32.7 - 35.5 g/dL [facility] Comment:Testing performed by : [facility], [address] [place] [phone] RDW CV 14.3 11.8 - 14.6 % [facility] Comment:Testing performed by : [facility], [address] [place] [phone] NRBC abs 0.02(H) 0.00 - 0.01 K/cumm [facility] Comment:Testing performed by : [facility], [address] [place] [phone] Blood specimen (specimen) 03/02/2019 9:22 AM CDT 03/02/2019 9:25 AM CDT Eren Cr MD LAB BLOOD ORDERABLES Final Re sult [facility] Department [place] [address] documented in this encounter Visit Diagnoses Diagnosis Malignant neoplasm metastatic to liver (HCC) Neuroendocrine carcinoma (HCC) Other malignant neoplasm of unspecified site documented in this encounter Orders Appointment Requests Count Last Ordered Date Fi rst Ordered Date ONCBCN CLINIC APPOINTMENT REQUEST 2 019 12/29/2018 ONCBCN LAB APPOINTMENT 1 03/02/2019 documented in this encounter Care Teams Secure Software Assessor Relationship Specialty Start Date End Date Julio César Briseno MD PCP - General 10/01/16 Eren Cr MD Referring Physician Medical Oncology 11/25/18 Yohana Bowen MD Radiation Oncologist Radiation Oncology 11/25/18 documented as of this encounter
--- OUTSIDE RECORDS SUMMARY | 2024-06-26 02:20 | XMS_ITS | Encounter Summary ---
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) Procedures [place] OCTREOTIDE INJECTION, DEPOT Octreotide 28 Day Cycles - Carcinoid Eren Cr MD [address] [facility] [address] [place] [address] Phone: tel: fax: [facility] [address] [address] Phone: tel: fax: Referral ID Status Reason Start Date Expiration Date V isits Requested Visits Authorized [id number] Authorized 11/28/2017 02/05/2025 1 150 Encounter Details Date Type Department Care Team (Late st Contact Info) Description 03/30/2019 10:00 AM CDT Infusion [facility] Oncology [facility] [address] [place] [address] Malignant neoplasm metastatic to liver (CMS/HCC) (Primary [...] First Orde red Date ONCBCN NURSING COMMUNICATION [id number] 1 0 03/30/2019 Appointment Requests Count Last Ordered Date Fi rst Ordered Date ONCBCN INJECTION APPOINTMENT REQUEST 1 03/09 documented in this encounter Care Teams Process Development Engineer Relationship Specialty Start Date End Date Julio César Briseno MD PCP - General 10/01/16 Eren Cr MD Referring Physician Medical Oncology 11/25/18 Yohana Bowen MD Radiation Oncologist Radiation Oncology 11/25/18 documented as of this encounter
--- OUTSIDE RECORDS SUMMARY | 2024-06-26 02:20 | XMS_ITS | Encounter Summary ---
Author Organization [facility] Address [address] [place] [address] Care Team Providers Care Quantitative Consultant Name Role Phone Julio César Briseno MD Primary Care Provider [phone] Eren Cr MD Unavailable [phone] Yohana Bowen MD Unavailable Encounter Details Date Type Department Care Team (Late st Contact Info) Description 03/19/2019 Orders Only [facility] Advanced Medicine Radiation Oncology [address] 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 NPO 6 hours prior to procedure, patient will need a production truck driver. If on any blood thinners, [...] CD4 pct 44 31 - 64 % [facility] CD4 Absolute 233(L) 365 - 1,294 cells/mcL [facility] CD8 pct 21 12 - 40 % [facility] CD8 Absolute 108(L) 187 - 781 cells/mcL [facility] CD4/CD8 ratio 2.1 0.9 - 4.4 [facility] Blood specimen (specimen) 03/30/2019 7:44 AM CDT 03/30/2019 7:49 AM CDT us Yohana Bowen MD LAB BLOOD ORDERABLES Final Resul t [facility] [address] [place] [address] documented in this encounter Visit Diagnoses Diagnosis Neuroendocrine carcinoma (HCC)- Primary Other malignant neoplasm of unspecified site documented in this encounter Care Teams Quantitative Consultant Relationship Specialty Start Date End Date Julio César Briseno MD PCP - General 10/01/16 Eren Cr MD Referring Physician Medical Oncology 11/25/18 Yohana Bowen MD Radiation Oncologist Radiation Oncology 11/25/18 documented as of this encounter
--- OUTSIDE RECORDS SUMMARY | 2024-06-26 02:20 | XMS_ITS | Encounter Summary ---
Author Organization [facility] Address [address] [place] [address] Phone Care Team Providers Care Truck Supervisor Name Role Phone Julio César Briseno MD Primary Care Provider Eren Cr MD Unavailable [phone] Yohana Bowen MD Unavailable Encounter Details Date Type Department Care Team (Late st Contact Info) Description 01/07/2019 Orders Only [facility] Oncology [address] [facility] Advanced Medicine 7th [place] [address] [place] [address] Eren Cr MD [address] [facility] [address] [place] [address] Social History Tobacco Use Types Packs/Day Years Used Date Smoking Tobacco: Never Smokeless Tobacco: Never Alcohol Use Standard Drinks/Week Comments Yes 1 (1 standard drink = 0.6 oz pur e alcohol) Comments No Sex and Gender Information Value Date Recorded Sex Assigned at Not on file Legal Sex Female 2:41 PM EVAPORATOR OPERATOR MOLASSES Gender Identity Not on file Sexual Orientation Straight 02/19/2021 9: 29 AM CDT Occupation Industry Job Start Date Job End Date retired Not on file Not on file Not on file documented as of this encounter Plan of Treatment Not on file documented as of this encounter Visit Diagnoses Not on filedocumented in this encounter Care Teams Truck Supervisor Relationship Specialty Start Date End Date Julio César Briseno MD PCP - General 10/01/16 Eren Cr MD Referring Physician Medical Oncology 11/25/18 Yohana Bowen MD Radiation Oncologist Radiation Oncology 11/25/18 documented as of this encounter
--- OUTSIDE RECORDS SUMMARY | 2024-06-26 02:20 | XMS_ITS | Encounter Summary ---
Author Organization [facility] Healthcare Address [address] [place] [address] Care Team Providers Care Rolled Ham Lacer Name Role Phone Julio César Briseno MD Primary Care Provider [phone] Eren Cr MD Unavailable [phone] Yohana Bowen MD Unavailable Encounter Details Date Type Department Care Team (Latest Contact Info) Description 04/12/2019 5:20 AM CDT - 04/12/2019 11:59 PM CDT Hospital Encounter [facility]) [facility] [place] [address] Discharge Disposition: Discharge to home or self care Social History Tobacco Use Types Packs/Day Years Used Date Smoking Tobacco: Never Smokeless Tobacco: Never Alcohol Use Standard Drinks/Week Comments Yes 1 (1 standard drink = 0.6 oz pur e alcohol) Comments No Sex and Gender Information Value Date Recorded Sex Assigned at Not on file Legal Sex Female 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 Electronically signed by: Chalino Abernathy M.D., MPH Narrative 04/12/2019 1:12 PM CDT EXAMINATION: RADIOLOGY CONSULTATION ON OUTSIDE IMAGING STUDY STUDY INITIALLY PERFORMED: 04/11/[address] [facility]. TYPE OF STUDY: Multiple computed tomographic [...] IMAGING STUDY STUDY INITIALLY PERFORMED: 04/11/[address] [facility]. TYPE OF STUDY: Multiple computed tomographic [...] images may or may not represent the nondalton source data set and thus may contain changes that may lower the accuracy of this second-opinion interpretation. Electronically signed by: Chalino Abernathy M.D., MPH Woodrow Cerna MD IMG CT PROCEDURES Final Result documented in this encounter Visit Diagnoses Not on filedocumented in this encounter Care Teams Rolled Ham Lacer Relationship Specialty Start Date End Date Julio César Briseno MD PCP - General 10/01/16 Eren Cr MD Referring Physician Medical Oncology 11/25/18 Yohana Bowen MD Radiation Oncologist Radiation Oncology 11/25/18 documented as of this encounter
--- OUTSIDE RECORDS SUMMARY | 2024-06-26 02:20 | XMS_ITS | Encounter Summary ---
Author Organization [facility] Healthcare Address [address] [place] [address] Care Team Providers Care Safe Deposit Attendant Name Role Phone Julio César Briseno MD Primary Care Provider + [phone] Eren Cr MD Unavailable [phone] Yohana Bowen MD Unavailable Reason for Referral * Diagnostic Imaging (Routine) - Closed Specialty Diagnoses / Procedures Referred By Evelyne bowman Referred To Contact Diagnoses Neuroendocrine carcinoma (HCC) Procedures NM [id number] Post Therapy SPECT Yohana Bowen MD Phone: tel: fax: [address] [address] Referral ID Status Reason Start Date Expiration Date Visits Re quested Visits Authorized [id number] Closed 12/05/2018 06/15/2020 1 1 * Diagnostic Imaging (Routine) - Closed Specialty Diagnoses / Procedures Referred By Evelyne bowman Referred To Contact Radiology Diagnoses Neuroendocrine carcinoma (HCC) Procedures IR PICC Line Placement > 5 Years Yohana Bowen MD Phone: tel: fax: [address] [address] Referral ID Status Reason Start Date Expiration Date Visits Re quested Visits Authorized [id number] Closed 12/05/2018 06/15/2020 1 1 Encounter Details Date Type Department Care Team (Late st Contact Info) Description 12/05/2018 Orders Only [facility] Radiation Oncology [address] [facility] [place] [address] Hien Soto RN Neuroendocrine carcinoma (CMS/HCC) (Primary Dx) Social History Tobacco Use Types Packs/Day Years Used Date Smoking Tobacco: Never Smokeless Tobacco: Never Alcohol Use Standard Drinks/Week Comments Yes 1 (1 standard drink = 0.6 oz pur e alcohol) Comments No Sex and Gender Information Value Date Recorded Sex Assigned at Not on file Legal Sex 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 NPO 6 hours prior to procedure, patient will need a lease purchase driver. If on any blood thinners, stop taking 24 to 48 hours prior. If on Xarelto or Plavix, must stop taking 4 to 5 days prior. 12/24/18: MIKEY Saha arrive at 0700. CBC and Immunodeficency labs ordered per study. SPECT CT at [facility] 2nd floor, arrive at 1340, scan at [...] pct 31 31 - 64 % [facility] CD4 Absolute 390 365 - 1,294 cells/mcL [facility] CD8 pct 28 12 - 40 % [facility] CD8 Absolute 353 187 - 781 cells/mcL [facility] CD4/CD8 ratio 1.1 0.9 - 4.4 [facility] Blood specimen (specimen) 12/24/2018 7:58 AM CDT 12/24/2018 1:44 PM CDT us Yohana Bowen MD LAB BLOOD ORDERABLES Final Resul t Performing Organization Address City/[facility] Co de Phone Number [facility] Department [place] [address] * (ABNORMAL) CBC with auto differential (12/24/2018 7:58 AM CDT) [facility] WBC 6.0 3.8 - 9.9 K/cumm [facility] Hgb 13.1 11.9 - 15.5 g/dL [facility] Hct 39.6 35.6 - 45.5 % [facility] Plt 138(L) 150 - 400 K/cumm [facility] MPV 10.9 9.1 - 12.3 fL [facility] RBC 4.57 3.90 - 5.20 M/cumm [facility] MCV 86.7 81.3 - 96.4 fL [facility] MCH 28.7 27.1 - 33.3 pg [facility] MCHC 33.1 32.3 - 35.7 g/dL [facility] RDW CV 13.1 11.1 - 14.9 % [facility] RDW SD 40.9 35.7 - 48.1 fL [facility] NRBC abs 0.00 0.00 - 0.01 K/cumm [facility] Blood specimen (specimen) 12/24/2018 7:58 AM CDT 12/24/2018 1:45 PM CDT us Yohana Bowen MD LAB BLOOD ORDERABLES Final Resul t Performing Organization Address City/[facility]/ZIP Co de Phone Number [facility] Department [place] [address] * IR PICC Line Placement > 5 [...] was obtained. ??Prior to beginning the procedure, Putnam Protocol was used to confirm the patient's [...] was obtained. Prior to beginning the procedure, Putnam Protocol was used to confirm the patient's [...] site documented in this encounter Care Teams Safe Deposit Attendant Relationship Specialty Start Date End Date Julio César Briseno MD PCP - General 10/01/16 Eren Cr MD Referring Physician Medical Oncology 11/25/18 Yohana Bowen MD Radiation Oncologist Radiation Oncology 11/25/18 documented as of this encounter
--- OUTSIDE RECORDS SUMMARY | 2024-06-26 02:20 | XMS_ITS | Encounter Summary ---
Author Organization [facility] Address [address] [place] [address] Phone Care Team Providers Care Gauge And Weigh Machine Adjuster Name Role Phone Julio César Brisneo MD Primary Care Provider [phone] Eren Cr MD Unavailable [phone] Yohana Bowen MD Unavailable Encounter Details Date Type Department Care Team (Late st Contact Info) Description 12/24/2018 Orders Only [facility] Oncology [address] [place] [address] Mayela Williamson RN Neuroendocrine carcinoma (CMS/HCC) (Primary Dx) Social History Tobacco Use Types Packs/Day Years Used Date Smoking Tobacco: Never Smokeless Tobacco: Never Alcohol Use Standard Drinks/Week Comments Yes 1 (1 standard drink = 0.6 oz pur e alcohol) Comments No Sex and Gender Information Value Date Recorded Sex Assigned at Not on file 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
--- OUTSIDE RECORDS SUMMARY | 2024-06-26 02:20 | XMS_ITS | Encounter Summary ---
Author Organization [facility] Healthcare Address [address] [place] [address] Care Team Providers Care Parts Technician Name Role Phone Julio César Briseno MD Primary Care Provider + [phone] Eren Cr MD Unavailable [phone] Yohana Bowen MD Unavailable Reason for Referral * Diagnostic Imaging (Routine) - Closed Specialty Diagnoses / Procedures Referred By Contac t Referred To Contact Diagnoses Neuroendocrine carcinoma (HCC) Procedures NM [id number] Post Therapy SPECT Yohana Bowen MD Phone: tel: fax: [address] [address] Referral ID Status Reason Start Date Expiration Date Visits Re quested Visits Authorized [id number] Closed 12/05/2018 06/15/2020 1 1 Reason for Visit * Diagnostic Imaging (Routine) - Closed Specialty Diagnoses / Procedures Referred By Contellen t Referred To Contact Diagnoses Neuroendocrine carcinoma (HCC) Procedures NM [id number] Post Therapy SPECT Yohana Bowen MD Phone: tel: fax: [address] [address] Referral ID Status Reason Start Date Expiration Date Visits Re quested Visits Authorized [id number] Closed 12/05/2018 06/15/2020 1 1 Encounter Details Date Type Department Care Team (Latest Contact Info) Description 12/24/2018 2:00 PM CDT - 12/24/2018 11:59 PM CDT Hospital Encounter [facility]) [address] [place] [address] Yohana Bowen MD [address] [facility] [address] [place] [address] Neuroendocrine carcinoma (CMS/HCC) Discharge Disposition: Discharge to home or self care Social History Tobacco Use Types Packs/Day Years Used Date Smoking Tobacco: Never Smokeless Tobacco: Never Alcohol Use Standard Drinks/Week Comments Yes 1 (1 standard drink = 0.6 oz pur e alcohol) Comments No Sex and Gender Information Value Date Recorded Sex Assigned at Not on file Legal Sex Female 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 9 cholestyramine (QUESTRAN) 4 gram packet cholestyramine (with sugar) 4 gram powder for susp in a packet 9 clotrimazole-be tamethasone (LOTRISONE) cream Apply 1 Application topically daily as needed (rash) 4 coenzyme S88-buqvmat E 100-5 mg-unit capsuleIndicati ons:supplement Take 1 tablet by mouth ebd special education teacher before breakfast 4 diphenoxylate-a tropine (LOMOTIL) 2.5-0.025 [...] site documented in this encounter Care Teams Parts Technician Relationship Specialty Start Date End Date Julio César Briseno MD PCP - General 10/01/16 Eren Cr MD Referring Physician Medical Oncology 11/25/18 Yohana Bowen MD Radiation Oncologist Radiation Oncology 11/25/18 documented as of this encounter
--- OUTSIDE RECORDS SUMMARY | 2024-06-26 02:20 | XMS_ITS | Encounter Summary ---
Author Organization [facility] Facility Care Team Providers Care Garbage Man Name Role Phone Julio César Briseno MD Primary Care Provider [phone] Eren Cr MD Unavailable [phone] Yohana Bowen MD Unavailable Encounter Details [...] on filedocumented in this encounter Care Teams Garbage Man Relationship Specialty Start Date End Date Julio César Briseno MD PCP - General 10/01/16 Eren Cr MD Referring Physician Medical Oncology 11/25/18 Yohana Bowen MD Radiation Oncologist Radiation Oncology 11/25/18 documented as of this encounter
--- OUTSIDE RECORDS SUMMARY | 2024-06-26 02:20 | XMS_ITS | Encounter Summary ---
Author Organization [facility] Address [address] [place] [address] Phone Care Team Providers Care Veneer Jointer Returner Name Role Phone Julio César Briseno MD Primary Care Provider [phone] Eren Cr MD Unavailable [phone] Yohana Bowen MD Unavailable Reason for Visit * Reason Comments Injections * Episode Based Medications (Routine) - Authorized Specialty Diagnoses / Procedures Referred By Contellen t Referred To Contact Oncology Diagnoses Neuroendocrine carcinoma (HCC) 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) Procedures LA OCTREOTIDE INJECTION, DEPOT Octreotide 28 Day Cycles - Carcinoid Eren Cr MD [address] [address] [place] [address] Phone: tel: fax: [address] [address] Phone: tel: fax: Referral ID Status Reason Start Date Expiration Date V isits Requested Visits Authorized [id number] Authorized 11/28/2017 02/05/2025 1 150 Encounter Details Date Type Department Care Team (Late st Contact Info) Description 02/18/2019 4:00 PM CDT Infusion [facility] Oncology [address] [place] [address] for Advanced Medicine 7th [place] [address] Neuroendocrine carcinoma (CMS/HCC) (Primary Dx); Malignant neoplasm metastatic to liver (CMS/HCC) Social History Tobacco Use Types Packs/Day Years Used Date Smoking Tobacco: Never Smokeless Tobacco: Never Alcohol Use Standard Drinks/Week Comments Yes 1 (1 standard drink = 0.6 oz pur e alcohol) Comments No Sex and Gender Information Value Date Recorded Sex Assigned at Not on file Legal 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
--- OUTSIDE RECORDS SUMMARY | 2024-06-26 02:20 | XMS_ITS | Encounter Summary ---
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) Neuroendocrine carcinoma (HCC) Eren Cr MD Phone: tel: fax: [facility] Radiation Oncology [address] [place] [address] Phone: tel: fax: Referral ID Status Reason Start Date Expiration Date V isits Requested Visits Authorized [id number] Closed Specialty Services Required 11/24/2018 06/04/2020 1 1 Encounter Details Date Type Department Care Team (Late st Contact Info) Description 11/25/2018 9:00 AM CDT Consult [facility] Radiation Oncology [address] [place] [address] Eren Cr MD [address] [place] [address] [address] [place] [address] Yohana Bowen MD [address] [facility] [address] [place], [place] [id number] Malignant neoplasm metastatic to liver (CMS/HCC); Neuroendocrine carcinoma (CMS/HCC) Social History Tobacco Use Types Packs/Day Years Used Date Smoking Tobacco: Never Smokeless Tobacco: Never Alcohol Use Standard Drinks/Week Comments Yes 1 (1 standard drink = 0.6 oz pur e alcohol) Comments No Sex and Gender Information Value Date Recorded Sex Assigned at Not on file Legal Sex Female 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 ? NM REMOVAL OF TONSILS,<12 Y/O [...] file Gets together: Not on file Attends advent service: Not on file Active member of [...] powder for susp in apacket ??? coenzyme O98-wrlvdxb E (CO Q-10, WITH VIT E,) 100-5 [...] care of this patient. Yohana Bowen MD Logging Crew Foreman Department of Radiation Oncology documented in this [...] 2018 documented in this encounter Care Teams Cable Dispatcher Relationship Specialty Start Date End Date Julio César Briseno MD PCP - General 10/01/16 Eren Cr MD Referring Physician Medical Oncology 11/25/18 Yohana Bowen MD Radiation Oncologist Radiation Oncology 11/25/18 documented as of this encounter
--- OUTSIDE RECORDS SUMMARY | 2024-06-26 02:20 | XMS_ITS | Encounter Summary ---
Author Organization [facility] Address [address] [place] [address] Phone Care Team Providers Care Solar Installation Technician Name Role Phone Julio César Briseno MD Primary Care Provider [phone] Eren Cr MD Unavailable [phone] Yohana Bowen MD Unavailable Encounter Details Date Type Department Care Team (Late st Contact Info) Description 03/30/2019 9:00 AM CDT Office Visit [facility] Oncology [address] [facility] [address]th [place] [address] [place] [address] Eren Cr MD [address] [facility] [address] [place] [address] Malignant neoplasm metastatic to liver (CMS/HCC); Neuroendocrine carcinoma (CMS/HCC) Social History Tobacco Use Types Packs/Day Years Used Date Smoking Tobacco: Never Smokeless Tobacco: Never Alcohol Use Standard Drinks/Week Comments Yes 1 (1 standard drink = 0.6 oz pur e alcohol) Comments No Sex and Gender Information Value Date Recorded Sex Assigned at Not on file Legal Sex Female 2:41 PM RN MDS Gender Identity Not on file Sexual Orientation [...] time, she also underwent right colectomy in [facility] OR by Dr. Greyson Reeves. [...] DAILY NEEDED, Disp: , Rfl: ??? coenzyme R00-pfowjwn E (CO Q-10, WITH VIT E,) 100-5 [...] 3 (Planned for 05/25/2019) Tio Llanos MD Remote Mortgage Underwriter completed by using M*Modal Fluency Direct speaking [...] 019 documented in this encounter Care Teams Solar Installation Technician Relationship Specialty Start Date End Date Julio César Briseno MD PCP - General 10/01/16 Eren Cr MD Referring Physician Medical Oncology 11/25/18 Yohana Bowen MD Radiation Oncologist Radiation Oncology 11/25/18 documented as of this encounter
--- OUTSIDE RECORDS SUMMARY | 2024-06-26 02:20 | XMS_ITS | Encounter Summary ---
Author Organization [facility] Address [address] [place] [address] Phone Care Team Providers Care Janitor And Cleaner Name Role Phone Julio César Briseno MD Primary Care Provider [phone] Eren Cr MD Unavailable [phone] Yohana Bowen MD Unavailable Encounter Details Date Type Department Care Team (Late st Contact Info) Description 03/04/2019 Orders Only [facility] Oncology [address] [place] [address] Mayela Williamson RN Social History Tobacco Use Types Packs/Day Years Used Date Smoking Tobacco: Never Smokeless Tobacco: Never Alcohol Use Standard Drinks/Week Comments Yes 1 (1 standard drink = 0.6 oz pur e alcohol) Comments No Sex and Gender Information Value Date Recorded Sex Assigned at Not on file Legal Sex Female 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
--- OUTSIDE RECORDS SUMMARY | 2024-06-26 02:21 | XMS_ITS | Encounter Summary ---
Author Organization [facility] Address [address] [place] [address] Phone Care Team Providers Care Photographic Equipment Inspector Name Role Phone Julio César Briseno MD Primary Care Provider [phone] Reason for Referral * MRI/CAT/PET Scan (Routine) - Closed Specialty Diagnoses / Procedures Referred By Evelyne bowman Referred To Contact Radiology Diagnoses Malignant neoplasm metastatic to liver (HCC) Neuroendocrine carcinoma (HCC) Procedures PET/CT Ga-68 Dotatate Skull to Thigh Bailee Bobby NP Phone: tel: fax: [address] [address] Referral ID Status Reason Start Date Expiration Date Visits Re quested Visits Authorized [id number] Closed 10/13/2018 04/23/2020 1 1 Reason for Visit * Episode Based Medications (Routine) - Authorized Specialty Diagnoses / Procedures Referred By Contellen t Referred To Contact Oncology Diagnoses Neuroendocrine carcinoma (HCC) Malignant neoplasm metastatic to liver (HCC) Procedures CO OCTREOTIDE INJECTION, DEPOT Octreotide 28 Day Cycles - Carcinoid Eren Cr MD [address] [facility] [address] [place] [address] Phone: tel: fax: [facility] [address] [place] [address] Phone: tel: fax: Referral ID Status Reason Start Date Expiration Date V isits Requested Visits Authorized [id number] Authorized 11/28/2017 02/05/2025 1 150 Encounter Details Date Type Department Care Team (Late st Contact Info) Description 10/13/2018 10:15 AM CDT Office Visit [facility] Oncology [address] [facility] 7th [place] [address] [place] [address] Eren Cr MD [address] [facility] [address] [place] [address] Malignant neoplasm metastatic to liver (CMS/HCC); Neuroendocrine carcinoma (CMS/HCC) Social History Tobacco Use Types Packs/Day Years Used Date Smoking Tobacco: Never Smokeless Tobacco: Never Alcohol Use Standard Drinks/Week Comments Yes 1 (1 standard drink = 0.6 oz pur e alcohol) Comments No Sex and Gender Information Value Date Recorded Sex Assigned at Not on file 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 coenzyme C69-atcswqp E (CO Q-10, WITH VIT E,) 100-5 [...] MSN, OCN, ANP Nurse Practitioner, Medical Oncology Label Coder completed by using M*Modal Fluency Direct speaking [...] obtained. ??The study was interpreted on the August workstation. ?? Scanned area: skull vertex to [...] obtained. The study was interpreted on the August workstation. Scanned area: skull vertex to the [...] by: Wili Durham M.D. Bailee Esmermary Bobby PHOTOENGRAVING PHOTOGRAPHER IMG PET PROCEDURES Final Result documented in [...] 019 documented in this encounter Care Teams Photographic Equipment Inspector Relationship Specialty Start Date End Date Julio César Briseno MD PCP - General 10/01/16 documented as of this encounter
--- OUTSIDE RECORDS SUMMARY | 2024-06-26 02:21 | XMS_ITS | Encounter Summary ---
Author Organization [facility] Address [address] [place] [address] Phone Care Team Providers Care Clock And Watch Hands Dipper Name Role Phone Julio César Briseno MD Primary Care Provider [phone] Encounter Details Date Type Department Care Team (Late st Contact Info) Description 08/19/2018 Orders Only [facility] Oncology [address] [facility] 7th [place] [address] [place] [address] Mayela Williamson RN Neuroendocrine carcinoma [...] on file Legal Sex Female 2:41 PM SHOP MANAGER Gender Identity Not on file Sexual [...] D 25-OH 55 30 - 80 ng/mL [facility] Blood specimen (specimen) 09/15/2018 6:45 AM CDT 09/15/2018 6:51 AM CDT Narrative [facility] - 09/15/2018 11:20 AM CDT Eren Cr MD LAB BLOOD ORDERABLES Final Re sult [facility] Department [place] [address] documented in this encounter Visit Diagnoses Diagnosis Neuroendocrine carcinoma (HCC)- Primary Other malignant neoplasm of unspecified site Malignant neoplasm metastatic to liver (HCC) Malignant neoplasm metastatic to liver (HCC) Neuroendocrine carcinoma (HCC) Other malignant neoplasm of unspecified site documented in this encounter Care Teams Clock And Watch Hands Dipper Relationship Specialty Start Date End Date Julio César Briseno MD PCP - General 10/01/16 documented as of this encounter
--- OUTSIDE RECORDS SUMMARY | 2024-06-26 02:21 | XMS_ITS | Encounter Summary ---
Author Organization [facility] Address [address] [place] [address] Phone Care Team Providers Care Compliance Representative Name Role Phone Julio César Briseno MD Primary Care Provider [phone] Reason for Visit * Reason Comments Injections * Episode Based Medications (Routine) - Authorized Specialty Diagnoses / Procedures Referred By Contac t Referred To Contact Oncology Diagnoses Neuroendocrine carcinoma (HCC) Malignant neoplasm metastatic to liver (HCC) Procedures [place] OCTREOTIDE INJECTION, DEPOT Octreotide 28 Day Cycles - Carcinoid Eren Cr MD [address] [facility] [address] [place] [address] Phone: tel: fax: [facility] [address] [address] Phone: tel: fax: Referral ID Status Reason Start Date Expiration Date V isits Requested Visits Authorized [id number] Authorized 11/28/2017 02/05/2025 1 150 Encounter Details Date Type Department Care Team (Late st Contact Info) Description 05/19/2018 10:00 AM STRESS TEST TECHNICIAN Infusion [facility] Oncology [address] [facility] Advanced Medicine 7th [place] [id number] 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); Neuroendocrine carcinoma (CMS/HCC) Social History Tobacco Use Types Packs/Day Years Used Date Smoking Tobacco: Never Smokeless Tobacco: Never Alcohol Use Standard Drinks/Week Comments Yes 1 (1 standard drink = 0.6 oz pur e alcohol) Comments No Sex and Gender Information Value Date Recorded Sex Assigned at Not on file Legal Sex Female 2:41 PM STRESS TEST TECHNICIAN Gender Identity Not on file Sexual Orientation Straight 02/19/2021 9: 29 AM CDT Occupation Industry Job Start Date Job End Date retired Not on file Not on file Not on file documented as of this encounter Last Filed Vital Signs Vital Sign Reading Time Taken Comments Blood Pressure 122/75 05/19/2018 9:41 AM STRESS TEST TECHNICIAN Pulse 74 05/19/2018 9:41 AM STRESS TEST TECHNICIAN Temperature 36.6 ??C (97.9 ??F) 05/19/2018 9:41 AM CS T Respiratory Rate 18 05/19/2018 9:41 AM STRESS TEST TECHNICIAN Oxygen Saturation 95% 05/19/2018 9:41 AM STRESS TEST TECHNICIAN Inhaled Oxygen Concentration - - Weight 82.3 kg (181 lb 7 oz) 05/19/2018 9:41 AM STRESS TEST TECHNICIAN Height - - Body Mass Index 32.66 01/01/2018 12:48 PM CDT documented in this encounter Nursing Notes * Misa Castellanos RN - 05/19/2018 10:00 AM CST Tolerated injection well. Given in right hip. SS TEST TECHNICIAN documented in this encounter Plan of [...] (HCC),Neuroendocrine carcinoma (HCC) Given 05/19/2018 10:24 AM STRESS TEST TECHNICIAN 30 mg Right Dorsogluteal/Butt ock documented in this encounter Orders Medications Ordered That Brett ht Not Have Been Administered Count Last Ordered Date First Ordered Date octreotide LAR (SandoSTATIN LAR) extended release intramuscular injection 30 mg 1 05/19/2018 Appointment Requests Count Last Ordered Date Fi rst Ordered Date ONCBCN INJECTION APPOINTMENT REQUEST 1 05/08 documented in this encounter Care Teams Compliance Representative Relationship Specialty Start Date End Date Julio César Briseno MD PCP - General 10/01/16 documented as of this encounter
--- OUTSIDE RECORDS SUMMARY | 2024-06-26 02:21 | XMS_ITS | Encounter Summary ---
Author Organization [facility] Address [address] [place] [address] Phone Care Team Providers Care Service Desk Analyst Name Role Phone Julio César Briseno MD Primary Care Provider [phone] 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) Procedures [place] OCTREOTIDE INJECTION, DEPOT Octreotide 28 Day Cycles - Carcinoid Eren Cr MD [address] [facility] [address] [place] [address] Phone: tel: fax: [address] [address] Phone: tel: fax: Referral ID Status Reason Start Date Expiration Date V isits Requested Visits Authorized [id number] Authorized 11/28/2017 02/05/2025 1 150 Encounter Details Date Type Department Care Team (Late st Contact Info) Description 04/21/2018 12:00 PM CDT Infusion [facility] Oncology [facility] Advanced Medicine 7th [place] [address] 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); Neuroendocrine carcinoma (CMS/HCC) Social History Tobacco Use Types Packs/Day Years Used Date Smoking Tobacco: Never Smokeless Tobacco: Never Alcohol Use Standard Drinks/Week Comments Yes 1 (1 standard drink = 0.6 oz pur e alcohol) Comments No Sex and Gender Information Value Date Recorded Sex Assigned at Not on file 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
--- OUTSIDE RECORDS SUMMARY | 2024-06-26 02:21 | XMS_ITS | Encounter Summary ---
Author Organization [facility] Address [address] [place] [address] Phone Care Team Providers Care Spray Unit Feeder Name Role Phone Julio César Briseno MD Primary Care Provider [phone] Encounter Details Date Type Department Care Team (Late st Contact Info) Description 10/13/2018 Orders Only [facility] Oncology [address] 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
--- OUTSIDE RECORDS SUMMARY | 2024-06-26 02:21 | XMS_ITS | Encounter Summary ---
Author Organization [facility] Address [address] [place] [address] Phone Care Team Providers Care Law Enforcement Director Name Role Phone Julio César Briseno MD Primary Care Provider [phone] Reason for Referral * Diagnostic Imaging (Routine) - Closed Specialty Diagnoses / Procedures Referred By Contac t Referred To Contact Radiology Diagnoses 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) Procedures MRI Abdomen Liver W WO Contrast Eren Cr MD Phone: tel: fax: [address] [address] Referral ID Status Reason Start Date Expiration Date Visits Re quested Visits Authorized [id number] Closed 10/13/2018 04/23/2020 1 1 Encounter Details Date Type Department Care Team (Late st Contact Info) Description 10/13/2018 Orders Only [facility] Oncology [address] [facility] 7th [place] [address] [place] [address] Roshni Gutierrez CMA Secondary malignant [...] on file Legal Sex Female 2:41 PM 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
--- OUTSIDE RECORDS SUMMARY | 2024-06-26 02:21 | XMS_ITS | Encounter Summary ---
Author Organization [facility] Address [address] [place] [address] Phone Care Team Providers Care Manager Of Exhibitions And Collections Name Role Phone Julio César Briseno MD Primary Care Provider [phone] 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) Procedures [place] OCTREOTIDE INJECTION, DEPOT Octreotide 28 Day Cycles - Carcinoid Eren Cr MD [address] [facility] [address] [place] [address] Phone: tel: fax: [address] [address] Phone: tel: fax: Referral ID Status Reason Start Date Expiration Date V isits Requested Visits Authorized [id number] Authorized 11/28/2017 02/05/2025 1 150 Encounter Details Date Type Department Care Team (Late st Contact Info) Description 10/13/2018 9:15 AM CDT Lab [facility] Oncology [address] [facility] 7th Floor [address] [place] [address] Malignant neoplasm metastatic to liver (CMS/HCC); Neuroendocrine carcinoma (CMS/HCC) Social History Tobacco Use Types Packs/Day Years Used Date Smoking Tobacco: Never Smokeless Tobacco: Never Alcohol Use Standard Drinks/Week Comments Yes 1 (1 standard drink = 0.6 oz pur e alcohol) Comments No Sex and Gender Information Value Date Recorded Sex Assigned at Not on file Legal Sex Female 2:41 PM PLUGMAN Gender Identity Not on file Sexual Orientation [...] abs 3.6 1.8 - 6.6 K/cumm [facility] Comment:Testing performed by : [facility], [address] [place] [phone] Lymphocyte abs 1.7 1.2 - 3.3 K/cumm [facility] Comment:Testing performed by : [facility], [address] [place] [phone] Monocyte abs 0.7 0.2 - 1.2 K/cumm [facility] Comment:Testing performed by : [facility], [address] [place] [phone] Eosinophil abs 0.2 0.0 - 0.5 K/cumm [facility] Comment:Testing performed by : [facility], [address] [place] [phone] Basophil abs 0.0 0.0 - 0.2 K/cumm [facility] Comment:Testing performed by : [facility], [address] [place] [phone] Neutrophil pct 58.4 % [facility] Comment: Interpretive Data Percent cell count reference ranges are not reported, since discordance with absolute values may lead to misinterpretation of CBC data. Current Interpretive Data was last revised on 2017. Testing performed by: [facility], [address] [place] [phone] Lymphocyte pct 27.4 % [facility] Comment: Interpretive Data Percent cell count reference ranges are not reported, since discordance with absolute values may lead to misinterpretation of CBC data. Current Interpretive Data was last revised on 2017. Testing performed by: [facility], [address] [place] [phone] Monocyte pct 10.8 % [facility] Comment:Testing performed by : [facility], [address] [place] [phone] Eosinophil pct 2.6 % [facility] Comment:Testing performed by : [facility], [address] [place] [phone] Basophil pct 0.8 % [facility] Comment:Testing performed by : [facility], [address] [place] [phone] Blood specimen (specimen) 10/13/2018 9:04 AM CDT 10/13/2018 9:05 AM CDT [facility]ative [facility] - 10/13/2018 9:10 AM CDT us Eren Cr MD LAB BLOOD ORDERABLES Final Re sult [facility] Department [place] [address] * CBC with auto differential (10/13/2018 9:04 AM CDT) WBC 6.1 3.8 - 9.8 K/cumm [facility] Comment:Testing performed by : [facility], [address] [place] [address] Hgb 14.4 12.1 - 15.1 g/dL [facility] Comment:Testing performed by : [place] [address] Hct 42.4 36.1 - 44.3 % [facility] Comment:Testing performed by : [facility], [address] [place] [address] Plt 153 140 - 440 K/cumm [facility] Comment:Testing performed by : [place] [address] MPV 7.9 6.8 - 10.4 fL [facility] Comment:Testing performed by : [place] [address] RBC 4.97 3.90 - 5.00 M/cumm [facility] Comment:Testing performed by : [place] [address] MCV 85.2 80.0 - 97.6 fL [facility] Comment:Testing performed by : [place] [address] MCH 29.0 26.7 - 33.7 pg [facility] Comment:Testing performed by : [place] [address] MCHC 34.1 32.7 - 35.5 g/dL [facility] Comment:Testing performed by : [place] [address] RDW CV 13.3 11.8 - 14.6 % [facility] Comment:Testing performed by : [place] [address] NRBC abs 0.01 0.00 - 0.01 K/cumm [facility] Comment:Testing performed by : [place] [address] Blood specimen (specimen) 10/13/2018 9:04 AM CDT 10/13/2018 9:05 AM CDT Narrative [facility] - 10/13/2018 9:10 AM CDT us Eren Cr MD LAB BLOOD ORDERABLES Final Re sult [facility] Department [place] [address] * (ABNORMAL) Comprehensive metabolic panel (10/13/2018 9:04 AM CDT) Sodium 141 135 - 145 mmol/L [facility] Potassium, pl 5.2(H) 3.3 - 4.9 mmol/L [facility] Chloride 103 97 - 110 mmol/L [facility] CO2 30 22 - 32 mmol/L [facility] Anion gap 8 2 - 15 mmol/L [facility] BUN 18 8 - 25 mg/dL [facility] Creatinine 0.97 0.60 - 1.10 mg/dL [facility] Glucose 113 70 - 199 mg/dL [facility] [...] 2017. Calcium 10.8(H) 8.5 - 10.3 mg/dL [facility] Bilirubin, total 0.5 0.1 - 1.2 mg/dL [facility] Protein, pl 6.9 6.5 - 8.5 g/dL [facility] Albumin 4.4 3.5 - 5.0 g/dL [facility] Alk phos 91 40 - 130 Units/L [facility] ALT 20 7 - 45 Units/L [facility] AST 23 10 - 45 Units/L [facility] Blood specimen (specimen) 10/13/2018 9:04 AM CDT 10/13/2018 9:17 AM CDT Narrative [facility] - 10/13/2018 9:54 AM CDT us Eren Cr MD LAB BLOOD ORDERABLES Final Re sult [facility] Department [place] [address] * (ABNORMAL) Chromogranin A (10/13/2018 9:04 AM CDT) Chromogranin A 151(H) <93 ng/mL [facility] Comment: Impaired renal or hepatic [...] absence of malignant disease. Test Performed by: [facility] [address] [place] [address] Blood specimen (specimen) 10/13/2018 9:04 AM CDT 10/13/2018 9:24 AM CDT Narrative [facility] - 10/14/2018 3:30 PM CDT us Eren Cr MD LAB BLOOD ORDERABLES Final Re sult [facility] [place] [address] documented in this encounter Visit Diagnoses Diagnosis Malignant neoplasm metastatic to liver (HCC) Neuroendocrine carcinoma (HCC) Other malignant neoplasm of unspecified site documented in this encounter Orders Appointment Requests Count Last Ordered Date Fi rst Ordered Date ONCBCN LAB APPOINTMENT 1 10/13/2018 documented in this encounter Care Teams Manager Of Exhibitions And Collections Relationship Specialty Start Date End Date Julio César Briseno MD PCP - General 10/01/16 documented as of this encounter
--- OUTSIDE RECORDS SUMMARY | 2024-06-26 02:21 | XMS_ITS | Encounter Summary ---
Author Organization 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 Gender Identity Not on file Sexual [...] Creatinine 0.87 0.60 - 1.10 mg/dL [facility] Glucose 148 70 - 199 mg/dL [facility] [...] Calcium 10.2 8.5 - 10.3 mg/dL [facility] Bilirubin, total 0.4 0.1 - 1.2 mg/dL [facility] Protein, pl 6.2(L) 6.5 - 8.5 g/dL [facility] Albumin 4.0 3.5 - 5.0 g/dL [facility] Alk phos 76 40 - 130 Units/L [facility] ALT 16 7 - 45 Units/L [facility] AST 20 10 - 45 Units/L [facility] Blood specimen (specimen) 09/15/2018 6:45 AM CDT 09/15/2018 6:51 AM CDT Narrative [facility] - 09/15/2018 7:34 AM CDT us Eren Cr MD LAB BLOOD ORDERABLES Final Re sult [facility] One [facility] [place] [address] * (ABNORMAL) Chromogranin A (09/15/2018 6:45 AM CDT) Chromogranin A 132(H) <93 ng/mL [facility] Comment: Impaired renal or hepatic function [...] by: [facility] [address] [place] [address] Blood specimen (specimen) 09/15/2018 6:45 AM CDT 09/15/2018 7:07 AM CDT [facility] - 09/17/2018 9:45 AM CDT Eren Cr MD LAB BLOOD ORDERABLES Final Re sult Performing Organization Address [facility] Co de Phone Number [facility] [place] [address] * Vitamin D 25 hydroxy (09/15/2018 6:45 AM CDT) Pathologist [facility] Vitamin D 25-OH 55 30 - 80 ng/mL [facility] Blood specimen (specimen) 09/15/2018 6:45 AM CDT 09/15/2018 6:51 AM CDT Narrative [facility] - 09/15/2018 11:20 AM CDT Eren Cr MD LAB BLOOD ORDERABLES Final Re sult Performing Organization Address City/[facility] Co de Phone Number [facility] [place] [address] * Differential, auto (09/15/2018 6:43 AM CDT) Neutrophil abs 3.0 1.8 - 6.6 K/cumm [facility] Comment:Testing performed by : [facility], [address] [place] [phone] Lymphocyte abs 1.2 1.2 - 3.3 K/cumm [facility] Comment:Testing performed by : [facility], [address] [place] [phone] Monocyte abs 0.4 0.2 - 1.2 K/cumm [facility] Comment:Testing performed by : [facility], [address] [place] [phone] Eosinophil abs 0.1 0.0 - 0.5 K/cumm [facility] Comment:Testing performed by : [facility], [address] [place] [phone] Basophil abs 0.0 0.0 - 0.2 K/cumm [facility] Comment:Testing performed by : [facility], [address] [place] [phone] Neutrophil pct 62.4 % [facility] Comment: Interpretive Data Percent cell count reference ranges are not reported, since discordance with absolute values may lead to misinterpretation of CBC data. Current Interpretive Data was last revised on 2017. Testing performed by: [address] [phone] Lymphocyte pct 25.2 % [facility] Comment: Interpretive Data Percent cell count reference ranges are not reported, since discordance with absolute values may lead to misinterpretation of CBC data. Current Interpretive Data was last revised on 2017. Testing performed by: [facility], [address] [place] [phone] Monocyte pct 8.7 % [facility] Comment:Testing performed by : [address] [phone] Eosinophil pct 2.7 % [facility] Comment:Testing performed by : [facility], [address] [place] [phone] Basophil pct 1.0 % [facility] Comment:Testing performed by : [facility], [address] [place] [phone] Blood specimen (specimen) 09/15/2018 6:43 AM CDT 09/15/2018 6:48 AM CDT Narrative [facility] - 09/15/2018 7:02 AM CDT us Eren Cr MD LAB BLOOD ORDERABLES Final Re sult [facility] [place] [address] * (ABNORMAL) CBC with auto differential (09/15/2018 6:43 AM CDT) WBC 4.8 3.8 - 9.8 K/cumm [facility] Comment:Testing performed by : [facility], [address] [place] [phone] Hgb 13.6 12.1 - 15.1 g/dL [facility] Comment:Testing performed by : [facility], [address] [place] [phone] Hct 40.1 36.1 - 44.3 % [facility] Comment:Testing performed by : [facility], [address] [place] [phone] Plt 127(L) 140 - 440 K/cumm [facility] Comment:Testing performed by : [address] [phone] MPV 7.6 6.8 - 10.4 fL [facility] Comment:Testing performed by : [facility], [address] [place] [phone] RBC 4.64 3.90 - 5.00 M/cumm [facility] Comment:Testing performed by : [address] [phone] MCV 86.4 80.0 - 97.6 fL [facility] Comment:Testing performed by : [address] [phone] MCH 29.3 26.7 - 33.7 pg [facility] Comment:Testing performed by : [facility], [address] [place] [phone] MCHC 33.9 32.7 - 35.5 g/dL [facility] Comment:Testing performed by : [facility], [address] [place] [phone] RDW CV 13.6 11.8 - 14.6 % [facility] Comment:Testing performed by : [facility], [address] [place] [phone] NRBC abs 0.00 0.00 - 0.01 K/cumm [facility] Comment:Testing performed by : [facility], [address] [place] [phone] Blood specimen (specimen) 09/15/2018 6:43 AM CDT 09/15/2018 6:48 AM CDT Narrative [facility] - 09/15/2018 7:02 AM CDT us Eren Cr MD LAB BLOOD ORDERABLES Final Re sult [facility] One [facility] [place] [address] documented in this encounter Visit Diagnoses Diagnosis Malignant neoplasm metastatic to liver (HCC) Neuroendocrine carcinoma (HCC) Other malignant neoplasm of unspecified site documented in this encounter Orders Appointment Requests Count Last Ordered Date Fi rst Ordered Date ONCBCN LAB APPOINTMENT 1 09/15/2018 documented in this encounter Care Teams Prenatal Genetic Counselor Relationship Specialty Start Date End Date Julio César Briseno MD PCP - General 10/01/16 documented as of this encounter
--- OUTSIDE RECORDS SUMMARY | 2024-06-26 02:21 | XMS_ITS | Encounter Summary ---
Author Organization [facility] Address [address] [place] [address] Phone Care Team Providers Care Professor Of Environmental Science Name Role Phone Julio César Briseno MD Primary Care Provider [phone] 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) Procedures [place] OCTREOTIDE INJECTION, DEPOT Octreotide 28 Day Cycles - Carcinoid Eren Cr MD [address] [facility] [address] [place] [address] Phone: tel: fax: [address] [address] Phone: tel: fax: Referral ID Status Reason Start Date Expiration Date V isits Requested Visits Authorized [id number] Authorized 11/28/2017 02/05/2025 1 150 Encounter Details Date Type Department Care Team (Late st Contact Info) Description 06/16/2018 9:45 AM RISK DEVELOPER Infusion [facility] Oncology [facility] Advanced Medicine 7th [place] [address] 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); Neuroendocrine carcinoma (CMS/HCC) Social History Tobacco Use Types Packs/Day Years Used Date Smoking Tobacco: Never Smokeless Tobacco: Never Alcohol Use Standard Drinks/Week Comments Yes 1 (1 standard drink = 0.6 oz pur e alcohol) Comments No Sex and Gender Information Value Date Recorded Sex Assigned at Not on file Legal Sex Female 2:41 PM RISK DEVELOPER Gender Identity Not on file Sexual Orientation Straight 02/19/2021 9: 29 AM CDT Occupation Industry Job Start Date Job End Date retired Not on file Not on file Not on file documented as of this encounter Last Filed Vital Signs Vital Sign Reading Time Taken Comments Blood Pressure 163/80 06/16/2018 9:08 AM RISK DEVELOPER Pulse 74 06/16/2018 9:08 AM RISK DEVELOPER Temperature 18 ??C (64.4 ??F) 06/16/2018 9:08 AM RISK DEVELOPER Respiratory Rate 18 06/16/2018 9:08 AM RISK DEVELOPER Oxygen Saturation 97% 06/16/2018 9:08 AM RISK DEVELOPER Inhaled Oxygen Concentration - - Weight 84.1 kg (185 lb 6.4 oz) 06/16/2018 9:08 A M RISK DEVELOPER Height - - Body Mass Index 33.37 01/01/2018 12:48 PM CDT documented in this encounter Nursing Notes * Sudha Parra - 06/16/2018 9:45 AM CST Patient tolerated treatment well. She received her injection on her left side today. She left ambulatory DEVELOPER documented in this encounter Plan of Treatment [...] (HCC),Neuroendocrine carcinoma (HCC) Given 06/16/2018 9:38 AM RISK DEVELOPER 30 mg Left Dorsogluteal/Butt ock documented in this encounter Orders Medications Ordered That Brett ht Not Have Been Administered Count Last Ordered Date First Ordered Date octreotide LAR (SandoSTATIN LAR) extended release intramuscular injection 30 mg 1 06/16/2018 Appointment Requests Count Last Ordered Date Fi rst Ordered Date ONCBCN INJECTION APPOINTMENT REQUEST 1 06/07 documented in this encounter Care Teams Professor Of Environmental Science Relationship Specialty Start Date End Date Julio César Briseno MD PCP - General 10/01/16 documented as of this encounter
--- OUTSIDE RECORDS SUMMARY | 2024-06-26 02:21 | XMS_ITS | Encounter Summary ---
Author Organization [facility] Address [address] [place] [address] Phone Care Team Providers Care Orientation & Mobility Specialist Name Role Phone Julio César Briseno MD Primary Care Provider [phone] 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) Procedures [place] OCTREOTIDE INJECTION, DEPOT Octreotide 28 Day Cycles - Carcinoid Eren Cr MD [address] [facility] [address] [place] [address] Phone: tel: fax: [address] [address] Phone: tel: fax: Referral ID Status Reason Start Date Expiration Date V isits Requested Visits Authorized [id number] Authorized 11/28/2017 02/05/2025 1 150 Encounter Details Date Type Department Care Team (Late st Contact Info) Description 07/14/2018 9:15 AM SCIENTIFIC ASSOCIATE Lab [facility] Oncology [address] [facility] Advanced Medicine 7th [place] [address] [place] [id number] Malignant neoplasm metastatic to liver (CMS/HCC); Neuroendocrine carcinoma (CMS/HCC) Social History Tobacco Use Types Packs/Day Years Used Date Smoking Tobacco: Never Smokeless Tobacco: Never Alcohol Use Standard Drinks/Week Comments Yes 1 (1 standard drink = 0.6 oz pur e alcohol) Comments No Sex and Gender Information Value Date Recorded Sex Assigned at Not on file Legal Sex Female 2:41 PM SCIENTIFIC ASSOCIATE Gender Identity Not on file Sexual Orientation Straight 02/19/2021 9: 29 AM CDT Occupation Industry Job Start Date Job End Date retired Not on file Not on file Not on file documented as of this encounter Plan of Treatment Not on file documented as of this encounter Procedures Procedure Name Priority Date/Time Associated Diagnosis Comments CHROMOGRANIN A Routine 07/14/2018 9:10 AM SCIENTIFIC ASSOCIATE Malignant neoplasm metastatic to liver (CMS/HCC) Neuroendocrine carcinoma (CMS/HCC) COMPREHENSIVE METABOLIC PANEL STAT 07/14/2018 9:10 AM SCIENTIFIC ASSOCIATE Malignant neoplasm metastatic to liver (CMS/HCC) Neuroendocrine carcinoma (CMS/HCC) DIFFERENTIAL AUTO STAT 07/14/2018 9:0 5 AM SCIENTIFIC ASSOCIATE Malignant neoplasm metastatic to liver (CMS/HCC) Neuroendocrine carcinoma (CMS/HCC) CBC WITH AUTO DIFFERENTIAL STAT 07/14/2018 9:05 AM SCIENTIFIC ASSOCIATE Malignant neoplasm metastatic to liver (CMS/HCC) Neuroendocrine carcinoma (CMS/HCC) documented in this encounter Results * (ABNORMAL) Chromogranin A (07/14/2018 9:10 AM SCIENTIFIC ASSOCIATE) Chromogranin A 118(H) <93 ng/mL [facility] Comment: Impaired renal or hepatic function [...] malignant disease. Test Performed by: [facility] [address] [place] [address] Blood specimen (specimen) 07/14/2018 9:10 AM SCIENTIFIC ASSOCIATE 07/14/2018 9:45 AM SCIENTIFIC ASSOCIATE Narrative [facility] - 07/16/2018 10:11 AM SCIENTIFIC ASSOCIATE us Eren Cr MD LAB BLOOD ORDERABLES Final Re sult [facility] One [facility] Department [place] [address] * (ABNORMAL) Comprehensive metabolic panel (07/14/2018 9:10 AM SCIENTIFIC ASSOCIATE) Sodium 140 135 - 145 mmol/L [facility] Potassium, pl 3.9 3.3 - 4.9 mmol/L [facility] Chloride 104 97 - 110 mmol/L [facility] CO2 28 22 - 32 mmol/L [facility] Anion gap 8 2 - 15 mmol/L [facility] BUN 15 8 - 25 mg/dL [facility] Creatinine 0.81 0.60 - 1.10 mg/dL [facility] Glucose 145 70 - 199 mg/dL [facility] Comment: Interpretive Data Fasting glucose >/= [...] 2017. Calcium 10.4(H) 8.5 - 10.3 mg/dL [facility] Bilirubin, total 0.8 0.1 - 1.2 mg/dL [facility] Protein, pl 6.8 6.5 - 8.5 g/dL [facility] Albumin 4.2 3.5 - 5.0 g/dL [facility] Alk phos 86 40 - 130 Units/L [facility] ALT 17 7 - 45 Units/L [facility] AST 22 10 - 45 Units/L [facility] Blood specimen (specimen) 07/14/2018 9:10 AM SCIENTIFIC ASSOCIATE 07/14/2018 9:14 AM SCIENTIFIC ASSOCIATE Narrative [facility] - 07/14/2018 9:54 AM SCIENTIFIC ASSOCIATE us Eren Cr MD LAB BLOOD ORDERABLES Final Re sult [facility] One [facility] Department [place] [address] * Differential, auto (07/14/2018 9:05 AM SCIENTIFIC ASSOCIATE) Neutrophil abs 3.6 1.8 - 6.6 K/cumm [facility] Comment:Testing performed by : [facility], [address] [place] [phone] Lymphocyte abs 1.8 1.2 - 3.3 K/cumm [facility] Comment:Testing performed by : [facility], [address] [place] [phone] Monocyte abs 0.5 0.2 - 1.2 K/cumm [facility] Comment:Testing performed by : [facility], [address] [place] [phone] Eosinophil abs 0.1 0.0 - 0.5 K/cumm [facility] Comment:Testing performed by : [facility], [address] [place] [phone] Basophil abs 0.1 0.0 - 0.2 K/cumm [facility] Comment:Testing performed by : [facility], [address] [place] [phone] Neutrophil pct 59.4 % [facility] Comment: Interpretive Data Percent cell count reference ranges are not reported, since discordance with absolute values may lead to misinterpretation of CBC data. Current Interpretive Data was last revised on 2017. Testing performed by: [facility], [address] [place] [phone] Lymphocyte pct 30.5 % [facility] Comment: Interpretive Data Percent cell count reference ranges are not reported, since discordance with absolute values may lead to misinterpretation of CBC data. Current Interpretive Data was last revised on 2017. Testing performed by: [facility], [address] [place] [phone] Monocyte pct 8.0 % [facility] Comment:Testing performed by : [facility], [address] [place] [phone] Eosinophil pct 1.1 % [facility] Comment:Testing performed by : [facility], [address] [place] [phone] Basophil pct 1.0 % [facility] Comment:Testing performed by : [facility], [address] [place] [phone] Blood specimen (specimen) 07/14/2018 9:05 AM SCIENTIFIC ASSOCIATE 07/14/2018 9:09 AM SCIENTIFIC ASSOCIATE Narrative [facility] - 07/14/2018 9:15 AM SCIENTIFIC ASSOCIATE Eren Cr MD LAB BLOOD ORDERABLES Final Re sult [facility] One [facility] Department of Laboratories [place], [place] [id number] * (ABNORMAL) CBC with auto differential (07/14/2018 9:05 AM SCIENTIFIC ASSOCIATE) WBC 6.0 3.8 - 9.8 K/cumm [facility] Comment:Testing performed by : [facility], [address] [place] [phone] Hgb 14.7 12.1 - 15.1 g/dL [facility] Comment:Testing performed by : [facility], [address] [place], [place] [phone] Hct 42.5 36.1 - 44.3 % [facility] Comment:Testing performed by : [facility], [address] [place] [address] Plt 141 140 - 440 K/cumm [facility] Comment:Testing performed by : [facility], [address] [place] [address] MPV 7.9 6.8 - 10.4 fL [facility] Comment:Testing performed by : [place] [address] RBC 5.02(H) 3.90 - 5.00 M/cumm [facility] Comment:Testing performed by : [place] [address] MCV 84.6 80.0 - 97.6 fL [facility] Comment:Testing performed by : [facility], [address] [place] [address] MCH 29.2 26.7 - 33.7 pg [facility] Comment:Testing performed by : [place] [address] MCHC 34.5 32.7 - 35.5 g/dL [facility] Comment:Testing performed by : [place] [address] RDW CV 13.6 11.8 - 14.6 % [facility] Comment:Testing performed by : [place] [address] NRBC abs 0.01 0.00 - 0.01 K/cumm [facility] Comment:Testing performed by : [place] [address] Blood specimen (specimen) 07/14/2018 9:05 AM SCIENTIFIC ASSOCIATE 07/14/2018 9:09 AM SCIENTIFIC ASSOCIATE Narrative [facility] - 07/14/2018 9:15 AM SCIENTIFIC ASSOCIATE Eren Cr MD LAB BLOOD ORDERABLES Final Re sult [facility] One [facility] Department [place] [address] documented in this encounter Visit Diagnoses Diagnosis Malignant neoplasm metastatic to liver (HCC) Neuroendocrine carcinoma (HCC) Other malignant neoplasm of unspecified site documented in this encounter Orders Appointment Requests Count Last Ordered Date Fi rst Ordered Date ONCBCN LAB APPOINTMENT 1 07/14/2018 documented in this encounter Care Teams Orientation & Mobility Specialist Relationship Specialty Start Date End Date Julio César Briseno MD PCP - General 10/01/16 documented as of this encounter
--- OUTSIDE RECORDS SUMMARY | 2024-06-26 02:21 | XMS_ITS | Encounter Summary ---
Author Organization [facility] Address [address] [place] [address] Phone Care Team Providers Care C2 Tactical Analysis Technician Name Role Phone Julio César Briseno MD Primary Care Provider [phone] Reason for Visit * Reason Comments Injections * Episode Based Medications (Routine) - Authorized Specialty Diagnoses / Procedures Referred By Contac t Referred To Contact Oncology Diagnoses Neuroendocrine carcinoma (HCC) Malignant neoplasm metastatic to liver (HCC) Procedures ME OCTREOTIDE INJECTION, DEPOT Octreotide 28 Day Cycles - Carcinoid Eren Cr MD [address] [facility] [address] [place] [address] Phone: tel: fax: [facility] [address] [address] Phone: tel: fax: Referral ID Status Reason Start Date Expiration Date V isits Requested Visits Authorized [id number] Authorized 11/28/2017 02/05/2025 1 150 Encounter Details Date Type Department Care Team (Late st Contact Info) Description 08/11/2018 10:00 AM V BLOCK SAW OPERATOR Infusion [facility] Oncology [address] [facility] Advanced Medicine 7th [place] [id number] 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); Neuroendocrine carcinoma (CMS/HCC) Social History Tobacco Use Types Packs/Day Years Used Date Smoking Tobacco: Never Smokeless Tobacco: Never Alcohol Use Standard Drinks/Week Comments Yes 1 (1 standard drink = 0.6 oz pur e alcohol) Comments No Sex and Gender Information Value Date Recorded Sex Assigned at Not on file Legal Sex Female 2:41 PM V BLOCK SAW OPERATOR Gender Identity Not on file Sexual Orientation Straight 02/19/2021 9: 29 AM CDT Occupation Industry Job Start Date Job End Date retired Not on file Not on file Not on file documented as of this encounter Last Filed Vital Signs Vital Sign Reading Time Taken Comments Blood Pressure 149/73 08/11/2018 9:59 AM V BLOCK SAW OPERATOR Pulse 89 08/11/2018 9:59 AM V BLOCK SAW OPERATOR Temperature 36.8 ??C (98.2 ??F) 08/11/2018 9:59 AM CS T Respiratory Rate 20 08/11/2018 9:59 AM V BLOCK SAW OPERATOR Oxygen Saturation 93% 08/11/2018 9:59 AM V BLOCK SAW OPERATOR Inhaled Oxygen Concentration - - Weight 83.9 kg (185 lb) 08/11/2018 9:59 AM V BLOCK SAW OPERATOR Height - - Body Mass Index 33.3 01/01/2018 12:48 PM CDT documented in this encounter Nursing Notes * Sara Gunter - 08/11/2018 10:00 AM CST Patient tolerated injection well today. Discharged ambulatory, aware of return appointments. V BLOCK SAW OPERATOR documented in this encounter Plan of [...] (HCC),Neuroendocrine carcinoma (HCC) Given 08/11/2018 10:06 AM V BLOCK SAW OPERATOR 30 mg Left Dorsogluteal/Butt ock documented in this encounter Orders Medications Ordered That Brett ht Not Have Been Administered Count Last Ordered Date First Ordered Date octreotide LAR (SandoSTATIN LAR) extended release intramuscular injection 30 mg 1 08/11/2018 Appointment Requests Count Last Ordered Date Fi rst Ordered Date ONCBCN INJECTION APPOINTMENT REQUEST 1 10/2018 documented in this encounter Care Teams C2 Tactical Analysis Technician Relationship Specialty Start Date End Date Julio César Briseno MD PCP - General 10/01/16 documented as of this encounter
--- OUTSIDE RECORDS SUMMARY | 2024-06-26 02:21 | XMS_ITS | Encounter Summary ---
Author Organization [facility] Address [address] [place] [address] Phone Care Team Providers Care Relationship Counselor Name Role Phone Julio César Briseno MD Primary Care Provider Encounter Details Date Type Department Care Team (Late st Contact Info) Description 08/20/2018 Orders Only [facility] Oncology [address] [facility] 7th [place] [address] [place] [address] Mayela Williamson RN Neuroendocrine carcinoma [...] on file Legal Sex Female 2:41 PM SENSORY SCIENTIST Gender Identity Not on file Sexual [...] 10/13/2018 documented in this encounter Care Teams Relationship Counselor Relationship Specialty Start Date End Date Julio César Briseno MD PCP - General 10/01/16 documented as of this encounter
--- OUTSIDE RECORDS SUMMARY | 2024-06-26 02:21 | XMS_ITS | Encounter Summary ---
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) Procedures [place] OCTREOTIDE INJECTION, DEPOT Octreotide 28 Day Cycles - Carcinoid Eren Cr MD [address] [facility] [address] [place] [address] Phone: tel: fax: [address] [address] Phone: tel: fax: Referral ID Status Reason Start Date Expiration Date V isits Requested Visits Authorized [id number] Authorized 11/28/2017 02/05/2025 1 150 Encounter Details Date Type Department Care Team (Late st Contact Info) Description 06/16/2018 9:00 AM WINDOWS APPLICATION PACKAGER Lab [facility] Oncology [address] [facility] Advanced Medicine 7th [place] [address] [place] [id number] Malignant neoplasm metastatic to liver (CMS/HCC); Neuroendocrine carcinoma (CMS/HCC) Social History Tobacco Use Types Packs/Day Years Used Date Smoking Tobacco: Never Smokeless Tobacco: Never Alcohol Use Standard Drinks/Week Comments Yes 1 (1 standard drink = 0.6 oz pur e alcohol) Comments No Sex and Gender Information Value Date Recorded Sex Assigned at Not on file Legal Sex Female 2:41 PM WINDOWS APPLICATION PACKAGER Gender Identity Not on file Sexual Orientation Straight 02/19/2021 9: 29 AM CDT Occupation Industry Job Start Date Job End Date retired Not on file Not on file Not on file documented as of this encounter Plan of Treatment Not on file documented as of this encounter Procedures Procedure Name Priority Date/Time Associated Diagnosis Comments DIFFERENTIAL AUTO STAT 06/16/2018 8:5 3 AM WINDOWS APPLICATION PACKAGER Malignant neoplasm metastatic to liver (CMS/HCC) Neuroendocrine carcinoma (CMS/HCC) CBC WITH AUTO DIFFERENTIAL STAT 06/16/2018 8:53 AM WINDOWS APPLICATION PACKAGER Malignant neoplasm metastatic to liver (CMS/HCC) Neuroendocrine carcinoma (CMS/HCC) CHROMOGRANIN A Routine 06/16/2018 8:53 AM WINDOWS APPLICATION PACKAGER Malignant neoplasm metastatic to liver (CMS/HCC) Neuroendocrine carcinoma (CMS/HCC) COMPREHENSIVE METABOLIC PANEL STAT 06/16/2018 8:53 AM WINDOWS APPLICATION PACKAGER Malignant neoplasm metastatic to liver (CMS/HCC) Neuroendocrine carcinoma (CMS/HCC) documented in this encounter Results * Differential, auto (06/16/2018 8:53 AM WINDOWS APPLICATION PACKAGER) Neutrophil abs 2.7 1.8 - 6.6 K/cumm [facility] Comment:Testing performed by : [facility], [facility] [phone] Lymphocyte abs 1.4 1.2 - 3.3 K/cumm [facility] Comment:Testing performed by : [facility], [facility] [address] Monocyte abs 0.5 0.2 - 1.2 K/cumm [facility] Comment:Testing performed by : [facility], [facility] [address] Eosinophil abs 0.1 0.0 - 0.5 K/cumm [facility] Comment:Testing performed by : [facility], [address] [place] [phone] Basophil abs 0.0 0.0 - 0.2 K/cumm [facility] Comment:Testing performed by : [facility], [address] [place] [phone] Neutrophil pct 57.2 % [facility] Comment: Interpretive Data Percent cell count reference ranges are not reported, since discordance with absolute values may lead to misinterpretation of CBC data. Current Interpretive Data was last revised on 2017. Testing performed by: [facility], [address] [place] [phone] Lymphocyte pct 30.7 % [facility] Comment: Interpretive Data Percent cell count reference ranges are not reported, since discordance with absolute values may lead to misinterpretation of CBC data. Current Interpretive Data was last revised on 2017. Testing performed by: [facility], [address] [place] [phone] Monocyte pct 9.8 % [facility] Comment:Testing performed by : [facility], [address] [place] [phone] Eosinophil pct 1.5 % [facility] Comment:Testing performed by : [facility], [address] [place] [phone] Basophil pct 0.8 % [facility] Comment:Testing performed by : [facility], [address] [place] [phone] Blood specimen (specimen) 06/16/2018 8:53 AM WINDOWS APPLICATION PACKAGER 06/16/2018 8:55 AM WINDOWS APPLICATION PACKAGER Narrative [facility] - 06/16/2018 9:00 AM WINDOWS APPLICATION PACKAGER us Eren Cr MD LAB BLOOD ORDERABLES Final Re sult [facility] Department [place] [address] * (ABNORMAL) CBC with auto differential (06/16/2018 8:53 AM WINDOWS APPLICATION PACKAGER) WBC 4.7 3.8 - 9.8 K/cumm [facility] Comment:Testing performed by : [facility], [address] [place] [address] Hgb 14.0 12.1 - 15.1 g/dL [facility] Comment:Testing performed by : [place] [address] Hct 41.2 36.1 - 44.3 % [facility] Comment:Testing performed by : [facility], [address] [place] [address] Plt 135(L) 140 - 440 K/cumm [facility] Comment:Testing performed by : [place] [address] MPV 7.6 6.8 - 10.4 fL [facility] Comment:Testing performed by : [place] [address] RBC 4.83 3.90 - 5.00 M/cumm [facility] Comment:Testing performed by : [place] [address] MCV 85.3 80.0 - 97.6 fL [facility] Comment:Testing performed by : [place] [address] MCH 29.0 26.7 - 33.7 pg [facility] Comment:Testing performed by : [place] [address] MCHC 34.0 32.7 - 35.5 g/dL [facility] Comment:Testing performed by : [place] [address] RDW CV 13.7 11.8 - 14.6 % [facility] Comment:Testing performed by : [place] [address] NRBC abs 0.00 0.00 - 0.01 K/cumm [facility] Comment:Testing performed by : [place] [address] Blood specimen (specimen) 06/16/2018 8:53 AM WINDOWS APPLICATION PACKAGER 06/16/2018 8:55 AM WINDOWS APPLICATION PACKAGER Narrative [facility] - 06/16/2018 9:00 AM WINDOWS APPLICATION PACKAGER Eren Cr MD LAB BLOOD ORDERABLES Final Re sult Performing Organization Address [facility] de Phone Number [facility] Department [place] [address] * (ABNORMAL) Chromogranin A (06/16/2018 8:53 AM WINDOWS APPLICATION PACKAGER) Chromogranin A 102(H) <93 ng/mL [facility] Comment: Impaired renal or hepatic [...] Test Performed by: [facility] [address] [place] [address] Blood specimen (specimen) 06/16/2018 8:53 AM WINDOWS APPLICATION PACKAGER 06/16/2018 9:30 AM WINDOWS APPLICATION PACKAGER Narrative [facility] - 06/18/2018 10:26 AM WINDOWS APPLICATION PACKAGER Eren Cr MD LAB BLOOD ORDERABLES Final Re sult Performing Organization Address [facility] Co de Phone Number [facility] Department [place] [address] * (ABNORMAL) Comprehensive metabolic panel (06/16/2018 8:53 AM WINDOWS APPLICATION PACKAGER) Sodium 142 135 - 145 mmol/L [facility] Potassium, pl 4.4 3.3 - 4.9 mmol/L [facility] Chloride 106 97 - 110 mmol/L [facility] CO2 30 22 - 32 mmol/L [facility] Anion gap 6 2 - 15 mmol/L [facility] BUN 13 8 - 25 mg/dL [facility] Creatinine 0.85 0.60 - 1.10 mg/dL [facility] Glucose 89 70 - 199 mg/dL [facility] [...] 2017. Calcium 10.5(H) 8.5 - 10.3 mg/dL [facility] Bilirubin, total 0.6 0.1 - 1.2 mg/dL [facility] Protein, pl 6.8 6.5 - 8.5 g/dL [facility] Albumin 4.2 3.5 - 5.0 g/dL [facility] Alk phos 88 40 - 130 Units/L [facility] ALT 20 7 - 45 Units/L [facility] AST 23 10 - 45 Units/L [facility] Blood specimen (specimen) 06/16/2018 8:53 AM WINDOWS APPLICATION PACKAGER 06/16/2018 9:18 AM WINDOWS APPLICATION PACKAGER Narrative [facility] - 06/16/2018 9:59 AM WINDOWS APPLICATION PACKAGER us Eern Cr MD LAB BLOOD ORDERABLES Final Re sult [facility] Department [place] [address] documented in this encounter Visit Diagnoses Diagnosis Malignant neoplasm metastatic to liver (HCC) Neuroendocrine carcinoma (HCC) Other malignant neoplasm of unspecified site documented in this encounter Orders Appointment Requests Count Last Ordered Date Fi rst Ordered Date ONCBCN LAB APPOINTMENT 1 06/16/2018 documented in this encounter Care Teams Oil Rig Driller Relationship Specialty Start Date End Date Julio César Briseno MD PCP - General 10/01/16 documented as of this encounter
--- OUTSIDE RECORDS SUMMARY | 2024-06-26 02:21 | XMS_ITS | Encounter Summary ---
Author Organization [facility] Context Relevant of [facility] Address [address] [place] [address] Phone Care Team Providers Care Whitewasher Name Role Phone Julio César Briseno MD Primary Care Provider [phone] Reason for Referral * Diagnostic Imaging (Routine) - Closed Specialty Diagnoses / Procedures Referred By Contellen t Referred To Contact Radiology Diagnoses Malignant neoplasm metastatic to liver (HCC) Neuroendocrine carcinoma (HCC) Procedures CT Chest Abdomen Pelvis W Contrast Eren Cr MD Phone: tel: fax: [address] [phone] Referral ID Status Reason Start Date Expiration Date Visits Re quested Visits Authorized [id number] Closed 04/21/2018 10/31/2019 1 1 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) Procedures GA OCTREOTIDE INJECTION, DEPOT Octreotide 28 Day Cycles - Carcinoid Eren Cr MD [address] [facility] [address] [place] [address] Phone: tel: fax: [facility] [address] [place] [address] Phone: tel: fax: Referral ID Status Reason Start Date Expiration Date V isits Requested Visits Authorized [id number] Authorized 11/28/2017 02/05/2025 1 150 Encounter Details Date Type Department Care Team (Late st Contact Info) Description 04/21/2018 11:00 AM CDT Office Visit 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 Greyson Reeves. [...] by mouth., Disp: , Rfl: ??? coenzyme [id number] (CO Q-10, WITH VIT E,) 100-5 [...] Cr Jr., MD, 100 mL at 04/21/18 1230 ROS: A complete review of systems was [...] vaccine: Has received vaccination today. Sabrina Willard COMPLETIONS MANAGER Nurse Practitioner Medical Oncology In Collaboration with Dr. Eren Cr Settlement Technician completed by using legalPAD Direct speaking software, therefore, transcriptionvariances may occur. Cosigned by Eren Cr Jr., MD at 04/21/2018 3:51 PM CDT documented in this encounter Plan of Treatment Not on file documented as of this encounter Results * CBC with auto differential (10/13/2018 9:04 AM CDT) WBC 6.1 3.8 - 9.8 K/cumm JASON BLACK Comment:Testing performed by : [facility], [address] [place] [phone] Hgb 14.4 12.1 - 15.1 g/dL JASON BLACK Comment:Testing performed by : [facility], [facility] [address] Hct 42.4 36.1 - 44.3 % JASON BLACK Comment:Testing performed by : [facility], [address] [place], [place] [id number] Plt 153 140 - 440 K/cumm JASON BLACK Comment:Testing performed by : [facility], [address] [place], [place] [id number] MPV 7.9 6.8 - 10.4 fL JASON BLACK Comment:Testing performed by : [place] [address] RBC 4.97 3.90 - 5.00 M/cumm JASON BLACK Comment:Testing performed by : [facility], [address] [place] [address] MCV 85.2 80.0 - 97.6 fL JASON BLACK Comment:Testing performed by : [facility], [address] [place], [place] [phone] MCH 29.0 26.7 - 33.7 pg JASON BLACK Comment:Testing performed by : [place] [id number] MCHC 34.1 32.7 - 35.5 g/dL JASON BLACK Comment:Testing performed by : [facility], [address] [place], [place] [phone] RDW CV 13.3 11.8 - 14.6 % JASON BLACK Comment:Testing performed by : [place] [id number] NRBC abs 0.01 0.00 - 0.01 K/cumm JASON BLACK Comment:Testing performed by : [facility], [address] [place], [place] [phone] Blood specimen (specimen) 10/13/2018 9:04 AM CDT 10/13/2018 9:05 AM CDT Narrative JASON BLACK - 10/13/2018 9:10 AM CDT us Eren Cr MD LAB BLOOD ORDERABLES Final Re sult JASON BLACK [facility] Department [place] [address] * (ABNORMAL) Chromogranin A (10/13/2018 9:04 AM CDT) Chromogranin A 151(H) <93 ng/mL JASON [facility] Comment: [...] of malignant disease. Test Performed by: [facility] [address] [place] [id number] Blood specimen (specimen) 10/13/2018 9:04 AM CDT 10/13/2018 9:24 AM CDT Narrative JASON BLACK - 10/14/2018 3:30 PM CDT us Eren Cr MD LAB BLOOD ORDERABLES Final Re sult [facility] [place] [address] * (ABNORMAL) Comprehensive metabolic panel (10/13/2018 9:04 AM CDT) Sodium 141 135 - 145 mmol/L [facility] Potassium, pl 5.2(H) 3.3 - 4.9 mmol/L [facility] Chloride 103 97 - 110 mmol/L [facility] CO2 30 22 - 32 mmol/L [facility] Anion gap 8 2 - 15 mmol/L [facility] BUN 18 8 - 25 mg/dL [facility] Creatinine 0.97 0.60 - 1.10 mg/dL [facility] Glucose 113 70 - 199 mg/dL [facility] Comment: Interpretive Data Fasting glucose [...] 2017. Calcium 10.8(H) 8.5 - 10.3 mg/dL [facility] Bilirubin, total 0.5 0.1 - 1.2 mg/dL [facility] Protein, pl 6.9 6.5 - 8.5 g/dL [facility] Albumin 4.4 3.5 - 5.0 g/dL [facility] Alk phos 91 40 - 130 Units/L [facility] ALT 20 7 - 45 Units/L [facility] AST 23 10 - 45 Units/L [facility] Blood specimen (specimen) 10/13/2018 9:04 AM CDT 10/13/2018 9:17 AM CDT Narrative [facility] - 10/13/2018 9:54 AM CDT us Eren Cr MD LAB BLOOD ORDERABLES Final Re sult [facility] [place] [address] * CT Chest Abdomen Pelvis W Contrast [...] Performed by: [facility] [address] [facility], [place] [address] Blood specimen (specimen) 09/15/2018 6:45 AM CDT 09/15/2018 7:07 AM CDT Narrative [facility] - 09/17/2018 9:45 AM CDT us Eren Cr MD LAB BLOOD ORDERABLES Final Re sult [facility] [place] [address] * (ABNORMAL) Comprehensive metabolic panel (09/15/2018 6:45 AM CDT) Sodium 143 135 - 145 mmol/L [facility] Potassium, pl 4.4 3.3 - 4.9 mmol/L [facility] Chloride 107 97 - 110 mmol/L [facility] CO2 29 22 - 32 mmol/L [facility] Anion gap 7 2 - 15 mmol/L [facility] BUN 12 8 - 25 mg/dL [facility] Creatinine 0.87 0.60 - 1.10 mg/dL [facility] Glucose 148 70 - 199 mg/dL [facility] Comment: Interpretive Data Fasting glucose [...] Calcium 10.2 8.5 - 10.3 mg/dL [facility] Bilirubin, total 0.4 0.1 - 1.2 mg/dL [facility] Protein, pl 6.2(L) 6.5 - 8.5 g/dL [facility] Albumin 4.0 3.5 - 5.0 g/dL [facility] Alk phos 76 40 - 130 Units/L [facility] ALT 16 7 - 45 Units/L [facility] AST 20 10 - 45 Units/L [facility] Blood specimen (specimen) 09/15/2018 6:45 AM CDT 09/15/2018 6:51 AM CDT Narrative [facility] - 09/15/2018 7:34 AM CDT us Eren Cr MD LAB BLOOD ORDERABLES Final Re sult [facility] [place] [address] * (ABNORMAL) CBC with auto differential (09/15/2018 6:43 AM CDT) WBC 4.8 3.8 - 9.8 K/cumm JASON BLACK Comment:Testing performed by : [facility], [address] [place] [phone] Hgb 13.6 12.1 - 15.1 g/dL JASON BLACK Comment:Testing performed by : [facility], [address] [place] [phone] Hct 40.1 36.1 - 44.3 % JASON BLACK Comment:Testing performed by : [facility], [address] [place] [phone] Plt 127(L) 140 - 440 K/cumm JASON BLACK Comment:Testing performed by : [facility], [address] [place] [phone] MPV 7.6 6.8 - 10.4 fL JASON BLACK Comment:Testing performed by : [address] [phone] RBC 4.64 3.90 - 5.00 M/cumm JASON BLACK Comment:Testing performed by : [address] [phone] MCV 86.4 80.0 - 97.6 fL JASON BLACK Comment:Testing performed by : [facility], [address] [place] [phone] MCH 29.3 26.7 - 33.7 pg JASON [facility] Comment:Testing performed by : [facility], [address] [place] [phone] MCHC 33.9 32.7 - 35.5 g/dL JASON [facility] Comment:Testing performed by : [facility], [address] [place] [phone] RDW CV 13.6 11.8 - 14.6 % JASON [facility] Comment:Testing performed by : [facility], [address] [place] [phone] NRBC abs 0.00 0.00 - 0.01 K/cumm JASON [facility] Comment:Testing performed by : [facility], [address] [place] [phone] Blood specimen (specimen) 09/15/2018 6:43 AM CDT 09/15/2018 6:48 AM CDT Narrative JASON [facility] - 09/15/2018 7:02 AM CDT us Eren Cr MD LAB BLOOD ORDERABLES Final Re sult [facility] [place] [address] * (ABNORMAL) Chromogranin A (08/11/2018 9:20 AM BEVELING MACHINE OPERATOR) Chromogranin A 132(H) <93 ng/mL JASON [facility] Comment: [...] Performed by: [facility] [address] [place] [address] Blood specimen (specimen) 08/11/2018 9:20 AM BEVELING MACHINE OPERATOR 08/11/2018 10:17 AM BEVELING MACHINE OPERATOR Narrative [facility] - 08/12/2018 11:28 AM BEVELING MACHINE OPERATOR us Eren Cr MD LAB BLOOD ORDERABLES Final Re sult [facility] [place] [address] * (ABNORMAL) Comprehensive metabolic panel (08/11/2018 9:20 AM BEVELING MACHINE OPERATOR) Sodium 141 135 - 145 mmol/L [facility] Potassium, pl 4.6 3.3 - 4.9 mmol/L [facility] Chloride 105 97 - 110 mmol/L [facility] CO2 28 22 - 32 mmol/L [facility] Anion gap 8 2 - 15 mmol/L [facility] BUN 15 8 - 25 mg/dL [facility] Creatinine 0.87 0.60 - 1.10 mg/dL [facility] Glucose 131 70 - 199 mg/dL [facility] Comment: Interpretive Data Fasting glucose [...] 2017. Calcium 10.8(H) 8.5 - 10.3 mg/dL [facility] Bilirubin, total 0.6 0.1 - 1.2 mg/dL [facility] Protein, pl 6.7 6.5 - 8.5 g/dL [facility] Albumin 4.2 3.5 - 5.0 g/dL [facility] Alk phos 88 40 - 130 Units/L [facility] ALT 20 7 - 45 Units/L [facility] AST 22 10 - 45 Units/L [facility] Blood specimen (specimen) 08/11/2018 9:20 AM BEVELING MACHINE OPERATOR 08/11/2018 9:31 AM BEVELING MACHINE OPERATOR Narrative [facility] - 08/11/2018 10:52 AM BEVELING MACHINE OPERATOR us Eren Cr MD LAB BLOOD ORDERABLES Final Re sult [facility] [place] [address] * (ABNORMAL) CBC with auto differential (08/11/2018 9:17 AM BEVELING MACHINE OPERATOR) WBC 5.8 3.8 - 9.8 K/cumm JASON [facility] Comment:Testing performed by : [facility], [address] [place] [phone] Hgb 14.5 12.1 - 15.1 g/dL JASON [facility] Comment:Testing performed by : [facility], [address] [place] [phone] Hct 42.8 36.1 - 44.3 % J[facility]ON [facility] Comment:Testing performed by : [facility], [address] [place] [phone] Plt 137(L) 140 - 440 K/cumm JASON [facility] Comment:Testing performed by : [facility], [address] [place] [phone] MPV 7.7 6.8 - 10.4 fL JASON [facility] Comment:Testing performed by : [facility], [address] [place], [place] [phone] RBC 5.05(H) 3.90 - 5.00 M/cumm JASON [facility] Comment:Testing performed by : [facility], [address] [place], [place] [id number] MCV 84.8 80.0 - 97.6 fL JASON [facility] Comment:Testing performed by : [facility], [address] [place] [address] MCH 28.8 26.7 - 33.7 pg JASON [facility] Comment:Testing performed by : [facility], [address] [place], [place] [phone] MCHC 33.9 32.7 - 35.5 g/dL JASON [facility] Comment:Testing performed by : [facility], [address] [place], [place] [id number] RDW CV 13.5 11.8 - 14.6 % JASON [facility] Comment:Testing performed by : [facility], [address] [place], [place] [id number] NRBC abs 0.00 0.00 - 0.01 K/cumm JASON [facility] Comment:Testing performed by : [facility], [address] [place], [place] [phone] Blood specimen (specimen) 08/11/2018 9:17 AM BEVELING MACHINE OPERATOR 08/11/2018 9:19 AM BEVELING MACHINE OPERATOR Narrative JASON [facility] - 08/11/2018 9:23 AM BEVELING MACHINE OPERATOR Eren Cr MD LAB BLOOD ORDERABLES Final Re sult JASON [facility] Department [place] [address] * (ABNORMAL) Chromogranin A (07/14/2018 9:10 AM BEVELING MACHINE OPERATOR) Chromogranin A 118(H) <93 ng/mL JASON [facility] Comment: [...] of malignant disease. Test Performed by: [facility] [address] [place] [address] Blood specimen (specimen) 07/14/2018 9:10 AM BEVELING MACHINE OPERATOR 07/14/2018 9:45 AM BEVELING MACHINE OPERATOR Narrative [facility] - 07/16/2018 10:11 AM BEVELING MACHINE OPERATOR Eren Cr MD LAB BLOOD ORDERABLES Final Re sult [facility] [place] [address] * (ABNORMAL) Comprehensive metabolic panel (07/14/2018 9:10 AM BEVELING MACHINE OPERATOR) Pathologist [facility] Sodium 140 135 - 145 mmol/L [facility] Potassium, pl 3.9 3.3 - 4.9 mmol/L [facility] Chloride 104 97 - 110 mmol/L [facility] CO2 28 22 - 32 mmol/L [facility] Anion gap 8 2 - 15 mmol/L [facility] BUN 15 8 - 25 mg/dL [facility] Creatinine 0.81 0.60 - 1.10 mg/dL [facility] Glucose 145 70 - 199 mg/dL [facility] Comment: Interpretive Data Fasting glucose [...] 10.4(H) 8.5 - 10.3 mg/dL [facility] Bilirubin, total 0.8 0.1 - 1.2 mg/dL [facility] Protein, pl 6.8 6.5 - 8.5 g/dL [facility] Albumin 4.2 3.5 - 5.0 g/dL [facility] Alk phos 86 40 - 130 Units/L [facility] ALT 17 7 - 45 Units/L [facility] AST 22 10 - 45 Units/L [facility] Blood specimen (specimen) 07/14/2018 9:10 AM BEVELING MACHINE OPERATOR 07/14/2018 9:14 AM BEVELING MACHINE OPERATOR Narrative [facility] - 07/14/2018 9:54 AM BEVELING MACHINE OPERATOR Eren Cr MD LAB BLOOD ORDERABLES Final Re sult [facility] [place] [address] * (ABNORMAL) CBC with auto differential (07/14/2018 9:05 AM BEVELING MACHINE OPERATOR) WBC 6.0 3.8 - 9.8 K/cumm [facility] Comment:Testing performed by : [facility], [facility] [address] Hgb 14.7 12.1 - 15.1 g/dL JASON [facility] Comment:Testing performed by : [facility], [address] [place] [phone] Hct 42.5 36.1 - 44.3 % J[facility]ON [facility] Comment:Testing performed by : [facility], [address] [place] [phone] Plt 141 140 - 440 K/cumm J[facility]ON [facility] Comment:Testing performed by : [facility], [address] [place], [place] [phone] MPV 7.9 6.8 - 10.4 fL J[facility]ON [facility] Comment:Testing performed by : [facility], [address] [place] [address] RBC 5.02(H) 3.90 - 5.00 M/cumm J[facility]ON [facility] Comment:Testing performed by : [facility], [address] [place] [address] MCV 84.6 80.0 - 97.6 fL J[facility]ON [facility] Comment:Testing performed by : [facility], [address] [place] [address] MCH 29.2 26.7 - 33.7 pg JASON [facility] Comment:Testing performed by : [place] [id number] MCHC 34.5 32.7 - 35.5 g/dL [facility]ON [facility] Comment:Testing performed by : [facility], [address] [place], [place] [phone] RDW CV 13.6 11.8 - 14.6 % [facility]OSN [facility] Comment:Testing performed by : [facility], [address] [place], [place] [id number] NRBC abs 0.01 0.00 - 0.01 K/cumm JASON [facility] Comment:Testing performed by : [place] [id number] Blood specimen (specimen) 07/14/2018 9:05 AM BEVELING MACHINE OPERATOR 07/14/2018 9:09 AM BEVELING MACHINE OPERATOR Narrative JASON [facility] - 07/14/2018 9:15 AM BEVELING MACHINE OPERATOR us Eren Cr MD LAB BLOOD ORDERABLES Final Re sult [facility] Department [place] [address] * (ABNORMAL) CBC with auto differential (06/16/2018 8:53 AM BEVELING MACHINE OPERATOR) WBC 4.7 3.8 - 9.8 K/cumm [facility] Comment:Testing performed by : [place] [address] Hgb 14.0 12.1 - 15.1 g/dL [facility] Comment:Testing performed by : [place] [address] Hct 41.2 36.1 - 44.3 % [facility] Comment:Testing performed by : [place] [address] Plt 135(L) 140 - 440 K/cumm [facility] Comment:Testing performed by : [place] [address] MPV 7.6 6.8 - 10.4 fL [facility] Comment:Testing performed by : [place] [address] RBC 4.83 3.90 - 5.00 M/cumm [facility] Comment:Testing performed by : [place] [address] MCV 85.3 80.0 - 97.6 fL [facility] Comment:Testing performed by : [place] [address] MCH 29.0 26.7 - 33.7 pg [facility] Comment:Testing performed by : [place] [address] MCHC 34.0 32.7 - 35.5 g/dL [facility] Comment:Testing performed by : [place] [address] RDW CV 13.7 11.8 - 14.6 % [facility] Comment:Testing performed by : [place] [address] NRBC abs 0.00 0.00 - 0.01 K/cumm [facility] Comment:Testing performed by : [place] [address] Blood specimen (specimen) 06/16/2018 8:53 AM BEVELING MACHINE OPERATOR 06/16/2018 8:55 AM BEVELING MACHINE OPERATOR Narrative JASON BLACK - 06/16/2018 9:00 AM BEVELING MACHINE OPERATOR us Eren Cr MD LAB BLOOD ORDERABLES Final Re sult [facility]ON [facility] [place] [address] * (ABNORMAL) Chromogranin A (06/16/2018 8:53 AM BEVELING MACHINE OPERATOR) Chromogranin A 102(H) <93 ng/mL [facility] Comment: [...] Performed by: [facility] [address] [place] [address] Blood specimen (specimen) 06/16/2018 8:53 AM BEVELING MACHINE OPERATOR 06/16/2018 9:30 AM BEVELING MACHINE OPERATOR Narrative [facility]ON BLACK - 06/18/2018 10:26 AM BEVELING MACHINE OPERATOR Eren Cr MD LAB BLOOD ORDERABLES Final Re sult [facility] [place] [address] * (ABNORMAL) Comprehensive metabolic panel (06/16/2018 8:53 AM BEVELING MACHINE OPERATOR) Sodium 142 135 - 145 mmol/L [facility] Potassium, pl 4.4 3.3 - 4.9 mmol/L [facility] Chloride 106 97 - 110 mmol/L [facility] CO2 30 22 - 32 mmol/L [facility] Anion gap 6 2 - 15 mmol/L [facility] BUN 13 8 - 25 mg/dL [facility] Creatinine 0.85 0.60 - 1.10 mg/dL [facility] Glucose 89 70 - 199 mg/dL [facility] Comment: Interpretive Data Fasting glucose [...] 10.5(H) 8.5 - 10.3 mg/dL [facility] Bilirubin, total 0.6 0.1 - 1.2 mg/dL [facility] Protein, pl 6.8 6.5 - 8.5 g/dL [facility] Albumin 4.2 3.5 - 5.0 g/dL [facility] Alk phos 88 40 - 130 Units/L [facility] ALT 20 7 - 45 Units/L [facility] AST 23 10 - 45 Units/L [facility] Blood specimen (specimen) 06/16/2018 8:53 AM BEVELING MACHINE OPERATOR 06/16/2018 9:18 AM BEVELING MACHINE OPERATOR Narrative [facility] - 06/16/2018 9:59 AM BEVELING MACHINE OPERATOR Eren Cr MD LAB BLOOD ORDERABLES Final Re sult Performing Organization Address City/[facility]/ZIP Co de Phone Number JASON [facility] [place] [address] * (ABNORMAL) Chromogranin A (05/19/2018 9:05 AM BEVELING MACHINE OPERATOR) Chromogranin A 106(H) <93 ng/mL [facility] Comment: Impaired renal or [...] Performed by: [facility] - [address] [address] Blood specimen (specimen) 05/19/2018 9:05 AM BEVELING MACHINE OPERATOR 05/19/2018 9:35 AM BEVELING MACHINE OPERATOR Narrative JASON [facility] - 05/20/2018 1:44 PM BEVELING MACHINE OPERATOR Erne Cr MD LAB BLOOD ORDERABLES Final Re sult J[facility]ON [facility] [place] [address] * (ABNORMAL) Comprehensive metabolic panel (05/19/2018 9:05 AM BEVELING MACHINE OPERATOR) Sodium 140 135 - 145 mmol/L [facility] Potassium, pl 4.0 3.3 - 4.9 mmol/L [facility] Chloride 103 97 - 110 mmol/L [facility] CO2 29 22 - 32 mmol/L [facility] Anion gap 8 2 - 15 mmol/L [facility] BUN 14 8 - 25 mg/dL [facility] Creatinine 0.95 0.60 - 1.10 mg/dL [facility] Glucose 113 70 - 199 mg/dL [facility] Comment: Interpretive Data Fasting glucose [...] 2017. Calcium 10.9(H) 8.5 - 10.3 mg/dL [facility] Bilirubin, total 0.8 0.1 - 1.2 mg/dL [facility] Protein, pl 7.2 6.5 - 8.5 g/dL [facility] Albumin 4.6 3.5 - 5.0 g/dL [facility] Alk phos 95 40 - 130 Units/L [facility] ALT 18 7 - 45 Units/L [facility] [facility] 23 10 - 45 Units/L [facility] Blood specimen (specimen) 05/19/2018 9:05 AM BEVELING MACHINE OPERATOR 05/19/2018 9:20 AM BEVELING MACHINE OPERATOR Narrative [facility] - 05/19/2018 9:54 AM BEVELING MACHINE OPERATOR Eren Cr MD LAB BLOOD ORDERABLES Final Re sult [facility] One [facility] [place] [address] * (ABNORMAL) CBC with auto differential (05/19/2018 9:04 AM BEVELING MACHINE OPERATOR) WBC 6.8 3.8 - 9.8 K/cumm CERNER BJ Comment:Testing performed by : [place] [id number] Hgb 15.1 12.1 - 15.1 g/dL CERNER BJ Comment:Testing performed by : [place] [id number] Hct 44.2 36.1 - 44.3 % CERNER BJ Comment:Testing performed by : [place] [id number] Plt 171 140 - 440 K/cumm CERNER BJ Comment:Testing performed by : [address] MPV 8.1 6.8 - 10.4 fL CERNER BJ Comment:Testing performed by : [place] [id number] RBC 5.19(H) 3.90 - 5.00 M/cumm CERNER BJ Comment:Testing performed by : [place] [id number] MCV 85.1 80.0 - 97.6 fL C[facility]ER BJ Comment:Testing performed by : [place] [id number] MCH 29.1 26.7 - 33.7 pg CERNER BJ Comment:Testing performed by : [place] [id number] MCHC 34.2 32.7 - 35.5 g/dL [facility] BJ Comment:Testing performed by : [place] [id number] RDW CV 13.8 11.8 - 14.6 % [facility]ER BJ Comment:Testing performed by : [place] [id number] NRBC abs 0.02(H) 0.00 - 0.01 K/cumm C[facility]ER BJ Comment:Testing performed by : [place] [id number] Blood specimen (specimen) 05/19/2018 9:04 AM BEVELING MACHINE OPERATOR 05/19/2018 9:06 AM BEVELING MACHINE OPERATOR Narrative [facility] - 05/19/2018 9:17 AM BEVELING MACHINE OPERATOR Eren Cr MD LAB BLOOD ORDERABLES Final Re sult [facility] One [facility] [place] [address] documented in this encounter Visit Diagnoses Diagnosis [...] 018 documented in this encounter Care Teams Whitewasher Relationship Specialty Start Date End Date Julio César Briseno MD PCP - General 10/01/16 documented as of this encounter
--- OUTSIDE RECORDS SUMMARY | 2024-06-26 02:21 | XMS_ITS | Encounter Summary ---
Author Organization [facility] Healthcare Address [address] [place] [address] Care Team Providers Care Firer Tunnel Kiln Name Role Phone Julio César Briseno MD Primary Care Provider Encounter Details Date Type Department Care Team (Late st Contact Info) Description 01/27/2018 10:11 AM CDT - 01/27/2018 11:59 PM CDT Hospital Encounter [facility] ([facility]) [address] [place] [address] Bailee Alcazar MD [address] [address] Encounter for screening mammogram for [...] on file Legal 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 9 coenzyme [id number] E 100-5 mg-unit capsuleIndicatio ns:supplement Take 1 tablet by mouth spring former before breakfast [address] (CYMBALTA) 30 [...] to prior imaging studies performed at [facility] on 06/28/2014, 06/29/2015 and 10/08/2016. There are [...] to prior imaging studies performed at [facility] on 06/28/2014, 06/29/2015 and 10/08/2016. There are [...] breast documented in this encounter Care Teams Firer Tunnel Kiln Relationship Specialty Start Date End Date Julio César Briseno MD PCP - General 10/01/16 documented as of this encounter
--- OUTSIDE RECORDS SUMMARY | 2024-06-26 02:21 | XMS_ITS | Encounter Summary ---
Author Organization [facility] Address [address] [place] [address] Phone Care Team Providers Care Director Of Materials Management Name Role Phone Julio César Briseno MD Primary Care Provider [phone] Reason for Referral * Diagnostic Lab (Routine) - Closed Specialty Diagnoses / Procedures Referred By Evelyne bowman Referred To Contact Lab Diagnoses Carcinoid tumor Procedures Cytology Oksana Rivas NP Phone: tel: fax: Referral ID Status Reason Start Date Expiration Date Visits Re quested Visits Authorized [id number] Closed 06/18/2018 12/28/2019 1 1 MECHANIC Encounter Details Date Type Department Care Team (Late st Contact Info) Description 06/18/2018 2:00 PM HEAD MECHANIC Office Visit [facility] Obstetrics and Gynecology [address] [facility] 13th [place] [address] [place] [id number] Oksana Rivas NP [address] [address] Carcinoid tumor (Primary Dx); Neuroendocrine [...] file Legal Sex Female 2:41 PM HEAD MECHANIC Gender Identity Not on file Sexual Orientation Straight 02/19/2021 9: 29 AM CDT Occupation Industry Job Start Date Job End Date retired Not on file Not on file Not on file documented as of this encounter Last Filed Vital Signs Vital Sign Reading Time Taken Comments Blood Pressure 151/84 06/18/2018 1:58 PM HEAD MECHANIC Pulse 98 06/18/2018 1:58 PM HEAD MECHANIC Temperature 36.9 ??C (98.5 ??F) 06/18/2018 1:58 PM CS T Respiratory Rate - - Oxygen Saturation 93% 06/18/2018 1:58 PM HEAD MECHANIC Inhaled Oxygen Concentration - - Weight 82.6 kg (182 lb 3.2 oz) 06/18/2018 1:58 P M HEAD MECHANIC Height - - Body Mass Index 32.79 01/01/2018 12:48 PM CDT documented in this encounter Progress Notes * Oksana Rivas, LATHE MECHANIC - 06/18/2018 2:00 PM CST Gynecological Oncology [...] - (Added by TW Conv) ? ? DE REMOVAL OF TONSILS,<12 Y/O Tonsillectomy - (Added by TW Conv) ??? DE TOTAL ABDOM HYSTERECTOMY Hysterectomy - (Added by [...] unit capsule Take by mouth. ??? coenzyme I48-[id number] E (CO Q-10, WITH VIT E,) 100-5 [...] Jasbir Reeves MD at 06/19/2018 2:45 AM HEAD MECHANIC MECHANIC MECHANIC documented in this encounter Plan of Treatment Not on file documented as of this encounter Results * Cytology (06/18/2018 3:12 PM HEAD MECHANIC) Fluid 06/18/2018 3:12 PM HEAD MECHANIC 06/18/2018 5:42 PM HEAD MECHANIC Narrative PATHOLOGY [facility] - 07/04/2018 10:29 AM HEAD MECHANIC EPIC results best viewed via link to PDF [facility] Surgical Pathology [place], [place] [id number] CYTOPATHOLOGY REPORT FINAL Patient Name: ??LA CHUNG Gender: ??F : ??1950 (Age: 67) Address: ??[address] [place] [address] , [place], [place] ??[address] Hospital #: ??[id number] Service: ??SUPERVISOR PYROTECHNIC LOADING Location: ??[facility] Patient Type: ??[facility] Ref Lab Taken: ??06/18/2018 Received: ??06/18/2018 [...] 66. ??This HPV test was performed at [facility] in [place], [place] utilizing the Gen-Probe Aptima assay. This specimen has been rescreened in accordance with this laboratory's Campus Police Officer Program. mg/07/04/2018 10:29 JAMES Thomas(ASCP) Report Electronically [...] tumor. The HPV test was performed by [facility], [address] [place] [address]. Report Images and scanned documents, if included only viewable in PDF version The performance characteristics of some immunohistochemical stains, in-situ hybridization and fluorescence in-situ hybridization tests and immunophenotyping by flow cytometry cited in this report (if any) were determined by the Surgical Pathology Department at [facility] as part of an ongoing senior quality engineer program and in compliance with [...] determined by the Surgical Pathology Department of [facility]. ??It has not been cleared or approved by the U. S. Food and Drug Administration. Oksana Rivas NP LAB CYTOLOGY ORDERABLES Final R esult PATHOLOGY [facility] 3rd Floor [place], [place] [phone] documented in this encounter Visit Diagnoses Diagnosis [...] 04/12/2019 added in this encounter Care Teams Director Of Materials Management Relationship Specialty Start Date End Date Julio César Briseno MD PCP - General 10/01/16 documented as of this encounter
--- OUTSIDE RECORDS SUMMARY | 2024-06-26 02:21 | XMS_ITS | Encounter Summary ---
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) Procedures [place] OCTREOTIDE INJECTION, DEPOT Octreotide 28 Day Cycles - Carcinoid Eren Cr MD [address] [facility] [address] [place] [address] Phone: tel: fax: [address] [address] Phone: tel: fax: Referral ID Status Reason Start Date Expiration Date V isits Requested Visits Authorized [id number] Authorized 11/28/2017 02/05/2025 1 150 Encounter Details Date Type Department Care Team (Late st Contact Info) Description 02/24/2018 9:15 AM CDT Lab [facility] [address] [facility] 7th [place] [address] [place] [phone] Malignant neoplasm metastatic to liver (CMS/HCC); Neuroendocrine carcinoma (CMS/HCC) Social History Tobacco Use Types Packs/Day Years Used Date Smoking Tobacco: Never Smokeless Tobacco: Never Alcohol Use Standard Drinks/Week Comments Yes 1 (1 standard drink = 0.6 oz pur e alcohol) Comments No Sex and Gender Information Value Date Recorded Sex Assigned at Not on file Legal Sex Female 2:41 PM MEDICAL CARE EVALUATION SPECIALIST Gender Identity Not on file Sexual [...] CDT) Chromogranin A 92 <93 ng/mL [facility] Comment: A reagent change was implemented on [...] its performance characteristics determined by [facility] in a manner consistent with CLIA requirements. [...] of malignant disease. Test Performed by: [facility] [address] [place] [address] Blood specimen (specimen) 02/24/2018 9:15 AM CDT 02/24/2018 1:57 PM CDT Narrative [facility] - 02/25/2018 1:43 PM CDT Eren Cr MD LAB BLOOD ORDERABLES Final Re sult [facility] One [facility] Department [place] [address] * (ABNORMAL) Comprehensive metabolic panel (02/24/2018 9:15 AM CDT) Sodium 141 135 - 145 mmol/L [facility] Potassium, pl 4.0 3.3 - 4.9 mmol/L [facility] Chloride 105 97 - 110 mmol/L [facility] CO2 26 22 - 32 mmol/L [facility] Anion gap 10 2 - 15 mmol/L [facility] BUN 20 8 - 25 mg/dL [facility] Creatinine 1.01 0.60 - 1.10 mg/dL [facility] Glucose 95 70 - 199 mg/dL [facility] 2017. Calcium 10.5(H) 8.5 - 10.3 mg/dL [facility] Bilirubin, total 0.5 0.1 - 1.2 mg/dL [facility] Protein, pl 7.1 6.5 - 8.5 g/dL [facility] Albumin 4.3 3.5 - 5.0 g/dL [facility] Alk phos 94 40 - 130 Units/L [facility] ALT 17 7 - 45 Units/L [facility] AST 19 10 - 45 Units/L [facility] Blood specimen (specimen) 02/24/2018 9:15 AM CDT 02/24/2018 10:18 AM CDT Narrative [facility] - 02/24/2018 10:46 AM CDT us Eren Cr MD LAB BLOOD ORDERABLES Final Re sult [facility] One [facility] Department [place] [address] * Differential, auto (02/24/2018 9:11 AM CDT) Neutrophil abs 3.6 1.8 - 6.6 K/cumm CERMINNIE BJ Comment:Testing performed by : [facility], [address] [place] [phone] Lymphocyte abs 2.2 1.2 - 3.3 K/cumm CERMINNIE BJ Comment:Testing performed by : [facility], [address] [place] [phone] Monocyte abs 0.5 0.2 - 1.2 K/cumm CERNER BJ Comment:Testing performed by : [facility], [address] [place] [phone] Eosinophil abs 0.1 0.0 - 0.5 K/cumm CERNER BJ Comment:Testing performed by : [facility], [address] [place] [phone] Basophil abs 0.0 0.0 - 0.2 K/cumm CERMINNIE BJ Comment:Testing performed by : [facility], [address] [place] [phone] Neutrophil pct 56.2 % [facility] Comment: Interpretive Data Percent cell count reference ranges are not reported, since discordance with absolute values may lead to misinterpretation of CBC data. Current Interpretive Data was last revised on 2017. Testing performed by: [facility], [address] [place] [phone] Lymphocyte pct 34.1 % [facility]ACK Comment: Interpretive Data Percent cell count reference ranges are not reported, since discordance with absolute values may lead to misinterpretation of CBC data. Current Interpretive Data was last revised on 2017. Testing performed by: [facility], [address] [place] [phone] Monocyte pct 7.3 % [facility] BLACK Comment:Testing performed by : [facility], [address] [place] [phone] Eosinophil pct 1.7 % [facility] Comment:Testing performed by : [address] [phone] Basophil pct 0.7 % [facility] Comment:Testing performed by : [facility], [address] [place] [phone] Blood specimen (specimen) 02/24/2018 9:11 AM CDT 02/24/2018 9:15 AM CDT Narrative [facility] - 02/24/2018 9:20 AM CDT us Eren Cr MD LAB BLOOD ORDERABLES Final Re sult [facility] One [facility] [place] [address] * (ABNORMAL) CBC with auto differential (02/24/2018 9:11 AM CDT) WBC 6.5 3.8 - 9.8 K/cumm [facility] Comment:Testing performed by : [facility], [address] [place] [phone] Hgb 14.3 12.1 - 15.1 g/dL [facility] Comment:Testing performed by : [facility], [address] [place], [place] [phone] Hct 42.6 36.1 - 44.3 % [facility] Comment:Testing performed by : [facility], [address] [place], [place] [phone] Plt 156 140 - 440 K/cumm [facility]ACK Comment:Testing performed by : [facility], [address] [place], [place] [phone] MPV 7.9 6.8 - 10.4 fL [facility] Comment:Testing performed by : [facility], [address] [place] [address] RBC 4.97 3.90 - 5.00 M/cumm [facility]ON BLACK Comment:Testing performed by : [facility], [address] [place] [address] MCV 85.7 80.0 - 97.6 fL [facility] Comment:Testing performed by : [place] [address] MCH 28.8 26.7 - 33.7 pg [facility] Comment:Testing performed by : [facility], [address] [place], [place] [phone] MCHC 33.7 32.7 - 35.5 g/dL [facility] Comment:Testing performed by : [facility], [address] [place], [place] [id number] RDW CV 13.3 11.8 - 14.6 % [facility] Comment:Testing performed by : [place] [address] NRBC abs 0.02(H) 0.00 - 0.01 K/cumm [facility] Comment:Testing performed by : [facility], [address] [place], [place] [phone] Blood specimen (specimen) 02/24/2018 9:11 AM CDT 02/24/2018 9:15 AM CDT Narrative [facility] - 02/24/2018 9:20 AM CDT Eren Cr MD LAB BLOOD ORDERABLES Final Re sult [facility] [place] [address] documented in this encounter Visit Diagnoses Diagnosis 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
--- OUTSIDE RECORDS SUMMARY | 2024-06-26 02:21 | XMS_ITS | Encounter Summary ---
Author Organization [facility] Address [address] [place] [address] Phone Care Team Providers Care Chainstitch Pants Outseamer Name Role Phone Julio César Briseno MD Primary Care Provider Reason for Visit * Reason Comments Follow-up Encounter Details Date Type Department Care Team (Late st Contact Info) Description 01/01/2018 1:00 PM CDT Office Visit [facility] Obstetrics and Gynecology [address] [facility] 13th [place] [address] [place] [phone] Oksana Rivas, PUBLIC RELATIONS ASSOCIATE [address] [address] Carcinoid tumor (Primary Dx); Neuroendocrine [...] on file Legal Sex Female 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 ? [place] REMOVAL OF TONSILS,<12 Y/O [...] unit capsule Take by mouth. ??? coenzyme Q53-akxlapp E (CO Q-10, WITH VIT E,) 100-5 [...] (CYMBALTA) 30 mg capsule daily. 9 coenzyme H69-iorwigi E 100-5 mg-unit capsuleIndicatio ns:supplement Take 1 tablet by mouth early childhood education specialist before breakfast 4 cholecalciferol (VITAMIN D3) 2,000 unit capsule Take by mouth. 9 wheat dextrin (BENEFIBER CLEAR SF, DEXTRIN, ORAL) 9 ascorbic acid, vitamin C, 500 mg capsuleIndicatio ns:supplement Take 1 tablet by mouth early childhood education specialist before breakfast 07/04/2016 4 added in this encounter Care Teams Chainstitch Pants Outseamer Relationship Specialty Start Date End Date Julio César Briseno MD PCP - General 10/01/16 documented as of this encounter
--- OUTSIDE RECORDS SUMMARY | 2024-06-26 02:21 | XMS_ITS | Encounter Summary ---
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) Procedures [place] OCTREOTIDE INJECTION, DEPOT Octreotide 28 Day Cycles - Carcinoid Eren Cr MD [address] [facility] [address] [place] [address] Phone: tel: fax: [address] [address] Phone: tel: fax: Referral ID Status Reason Start Date Expiration Date V isits Requested Visits Authorized [id number] Authorized 11/28/2017 02/05/2025 1 150 Encounter Details Date Type Department Care Team (Latest Contact Info) Description 04/21/2018 10:15 AM CDT Clinical Support [facility] Oncology [facility] 7th [place] [address] [place] [id number] Malignant neoplasm metastatic to liver (CMS/HCC); Neuroendocrine carcinoma (CMS/HCC) Social History Tobacco Use Types Packs/Day Years Used Date Smoking Tobacco: Never Smokeless Tobacco: Never Alcohol Use Standard Drinks/Week Comments Yes 1 (1 standard drink = 0.6 oz pur e alcohol) Comments No Sex and Gender Information Value Date Recorded Sex Assigned at Not on file Legal Sex Female 2: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 Gender Identity Not on file Sexual [...] abs 3.9 1.8 - 6.6 K/cumm [facility] Comment:Testing performed by : [facility], [address] [place] [phone] Lymphocyte abs 2.7 1.2 - 3.3 K/cumm [facility] Comment:Testing performed by : [facility], [address] [place] [phone] Monocyte abs 0.4 0.2 - 1.2 K/cumm [facility] Comment:Testing performed by : [facility], [address] [place] [phone] Eosinophil abs 0.1 0.0 - 0.5 K/cumm [facility] Comment:Testing performed by : [facility], [address] [place] [phone] Basophil abs 0.0 0.0 - 0.2 K/cumm [facility] Comment:Testing performed by : [facility], [address] [place] [phone] Neutrophil pct 55.1 % [facility] Comment: Interpretive Data Percent cell count reference ranges are not reported, since discordance with absolute values may lead to misinterpretation of CBC data. Current Interpretive Data was last revised on 2017. Testing performed by: [facility], [address] [place] [phone] Lymphocyte pct 37.7 % [facility] Comment: Interpretive Data Percent cell count reference ranges are not reported, since discordance with absolute values may lead to misinterpretation of CBC data. Current Interpretive Data was last revised on 2017. Testing performed by: [facility], [address] [place] [phone] Monocyte pct 5.9 % [facility] Comment:Testing performed by : [facility], [address] [place] [phone] Eosinophil pct 0.7 % [facility] Comment:Testing performed by : [facility], [address] [place] [phone] Basophil pct 0.6 % [facility] Comment:Testing performed by : [facility], [address] [place] [phone] Blood specimen (specimen) 04/21/2018 10:30 AM CDT 04/21/2018 10:31 AM CDT [facility] - 04/21/2018 10:34 AM CDT us Eren Cr MD LAB BLOOD ORDERABLES Final Re sult [facility] One [facility] Department [place] [address] * (ABNORMAL) CBC with auto differential (04/21/2018 10:30 AM CDT) WBC 7.1 3.8 - 9.8 K/cumm [facility] Comment:Testing performed by : [facility], [address] [place] [address] Hgb 14.5 12.1 - 15.1 g/dL [facility] Comment:Testing performed by : [place] [address] Hct 43.0 36.1 - 44.3 % [facility] Comment:Testing performed by : [facility], [address] [place] [address] Plt 144 140 - 440 K/cumm [facility] Comment:Testing performed by : [place] [address] MPV 8.1 6.8 - 10.4 fL [facility] Comment:Testing performed by : [place] [address] RBC 5.06(H) 3.90 - 5.00 M/cumm [facility] Comment:Testing performed by : [place] [address] MCV 85.0 80.0 - 97.6 fL [facility] Comment:Testing performed by : [place] [address] MCH 28.7 26.7 - 33.7 pg [facility] Comment:Testing performed by : [place] [address] MCHC 33.7 32.7 - 35.5 g/dL [facility] Comment:Testing performed by : [place] [address] RDW CV 13.5 11.8 - 14.6 % [facility] Comment:Testing performed by : [place] [address] NRBC abs 0.02(H) 0.00 - 0.01 K/cumm [facility] Comment:Testing performed by : [place] [address] Blood specimen (specimen) 04/21/2018 10:30 AM CDT 04/21/2018 10:31 AM CDT Narrative [facility] - 04/21/2018 10:34 AM CDT Eren Cr MD LAB BLOOD ORDERABLES Final Re sult [facility] One [facility] Department [place] [address] * (ABNORMAL) Chromogranin A (04/21/2018 10:29 AM CDT) Chromogranin A 112(H) <93 ng/mL [facility] Comment: Impaired renal or hepatic function [...] of malignant disease. Test Performed by: [facility] - [place] [address] [place] [address] Blood specimen (specimen) 04/21/2018 10:29 AM CDT 04/21/2018 11:04 AM CDT Narrative [facility] - 04/22/2018 2:37 PM CDT Eren Cr MD LAB BLOOD ORDERABLES Final Re sult [facility] One [facility] Department [place] [address] * Comprehensive metabolic panel (04/21/2018 10:29 AM CDT) Sodium 139 135 - 145 mmol/L [facility] Potassium, pl 3.5 3.3 - 4.9 mmol/L [facility] Chloride 103 97 - 110 mmol/L [facility] CO2 27 22 - 32 mmol/L [facility] Anion gap 9 2 - 15 mmol/L [facility] BUN 19 8 - 25 mg/dL [facility] Creatinine 0.89 0.60 - 1.10 mg/dL [facility] Glucose 157 70 - 199 mg/dL [facility] [...] 2017. Calcium 10.1 8.5 - 10.3 mg/dL [facility] Bilirubin, total 0.9 0.1 - 1.2 mg/dL [facility] Protein, pl 6.6 6.5 - 8.5 g/dL [facility] Albumin 4.3 3.5 - 5.0 g/dL [facility] Alk phos 85 40 - 130 Units/L [facility] ALT 20 7 - 45 Units/L [facility] AST 25 10 - 45 Units/L [facility] Blood specimen (specimen) 04/21/2018 10:29 AM CDT 04/21/2018 10:42 AM CDT Narrative [facility] - 04/21/2018 11:17 AM CDT us Eren Cr MD LAB BLOOD ORDERABLES Final Re sult [facility] One [facility] Department [place] [address] documented in this encounter Visit Diagnoses Diagnosis 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
--- OUTSIDE RECORDS SUMMARY | 2024-06-26 02:21 | XMS_ITS | Encounter Summary ---
Author Organization [facility] Address [address] [place] [address] Care Team Providers Care Apartment Groundskeeper Name Role Phone Julio César Briseno MD Primary Care Provider [phone] Reason for Referral * Diagnostic Imaging (Routine) - Closed Specialty Diagnoses / Procedures Referred By Contac t Referred To Contact Radiology Diagnoses 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) Procedures MRI Abdomen Liver W WO Contrast Eren Cr MD Phone: tel: fax: [address] [phone] Referral ID Status Reason Start Date Expiration Date Visits Re quested Visits Authorized [id number] Closed 10/13/2018 04/23/2020 1 1 Reason for Visit * Diagnostic Imaging (Routine) - Closed Specialty Diagnoses / Procedures Referred By Contac t Referred To Contact Radiology Diagnoses 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) Procedures MRI Abdomen Liver W WO Contrast Eern Cr MD Phone: tel: fax: [address] [phone] Referral ID Status Reason Start Date Expiration Date Visits Re quested Visits Authorized [id number] Closed 10/13/2018 04/23/2020 1 1 Encounter Details Date Type Department Care Team (Latest Contact Info) Description 10/21/2018 6:14 AM CDT - 10/21/2018 11:59 PM CDT Hospital Encounter [facility] Radiology [address] [facility] [place] [address] Eren Cr MD [address] [facility] [address] [place] [address] Secondary malignant neoplasm of liver (CMS/HCC); Neuro-endocrine [...] on file Legal Sex Female 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 9 CHOLESTYRAMINE, BULK, MISC 1 tablet by Not Applicable route 9 coenzyme [id number] E 100-5 mg-unit capsuleIndicatio ns:supplement Take 1 tablet by mouth relay tester before breakfast [address] (CYMBALTA) 30 [...] Creatinine POC 0.8 0.6 - 1.1 mg/dL [facility] Blood specimen (specimen) 10/21/2018 6:34 AM CDT 10/21/2018 6:34 AM CDT Narrative [facility] - 10/21/2018 2:40 PM CDT Eren Cr MD POINT OF CARE TEST ORDERABLES Final Result [facility] One [facility] Department of Laboratories [place], [place] [id number] documented in this encounter Visit Diagnoses Diagnosis [...] 10/21/2018 documented in this encounter Care Teams Apartment Groundskeeper Relationship Specialty Start Date End Date Julio César Briseno MD PCP - General 10/01/16 documented as of this encounter
--- OUTSIDE RECORDS SUMMARY | 2024-06-26 02:21 | XMS_ITS | Encounter Summary ---
Author Organization [facility] Address [address] [place] [address] Phone Care Team Providers Care Gas Singer Name Role Phone Julio César Briseno MD Primary Care Provider [phone] 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) Procedures [place] OCTREOTIDE INJECTION, DEPOT Octreotide 28 Day Cycles - Carcinoid Eren Cr MD [address] [facility] [address] [place] [address] Phone: tel: fax: [address] [address] Phone: tel: fax: Referral ID Status Reason Start Date Expiration Date V isits Requested Visits Authorized [id number] Authorized 11/28/2017 02/05/2025 1 150 Encounter Details Date Type Department Care Team (Late st Contact Info) Description 08/11/2018 9:15 AM [facility] Lab [facility] Oncology [address] [facility] 7th [place] [address] [place] [id number] Malignant neoplasm metastatic to liver (CMS/HCC); Neuroendocrine carcinoma (CMS/HCC) Social History Tobacco Use Types Packs/Day Years Used Date Smoking Tobacco: Never Smokeless Tobacco: Never Alcohol Use Standard Drinks/Week Comments Yes 1 (1 standard drink = 0.6 oz pur e alcohol) Comments No Sex and Gender Information Value Date Recorded Sex Assigned at Not on file Legal Sex Female 2:41 PM [employer] [facility] Gender Identity Not on file Sexual Orientation Straight 02/19/2021 9: 29 AM CDT Occupation Industry Job Start Date Job End Date retired Not on file Not on file Not on file documented as of this encounter Plan of Treatment Not on file documented as of this encounter Procedures Procedure Name Priority Date/Time Associated Diagnosis Comments CHROMOGRANIN A Routine 08/11/2018 9:20 AM [facility] Malignant neoplasm metastatic to liver (CMS/HCC) Neuroendocrine carcinoma (CMS/HCC) COMPREHENSIVE METABOLIC PANEL STAT 08/11/2018 9:20 AM [facility] Malignant neoplasm metastatic to liver (CMS/HCC) Neuroendocrine carcinoma (CMS/HCC) DIFFERENTIAL AUTO STAT 08/11/2018 9:1 7 AM [facility] Malignant neoplasm metastatic to liver (CMS/HCC) Neuroendocrine carcinoma (CMS/HCC) CBC WITH AUTO DIFFERENTIAL STAT 08/11/2018 9:17 AM [facility] Malignant neoplasm metastatic to liver (CMS/HCC) Neuroendocrine carcinoma (CMS/HCC) documented in this encounter Results * (ABNORMAL) Chromogranin A (08/11/2018 9:20 AM [facility]) Chromogranin A 132(H) <93 ng/mL [facility] Comment: Impaired renal or hepatic function or [...] its performance characteristics determined by [facility] in a manner consistent with CLIA [...] of malignant disease. Test Performed by: [facility] [address] [place] [address] Blood specimen (specimen) 08/11/2018 9:20 AM [facility] 08/11/2018 10:17 AM [facility] [place] Narrative [facility] - 08/12/2018 11:28 AM [place] [place] us Eren Cr MD LAB BLOOD ORDERABLES Final Re sult [facility] One [facility] Department [place] [address] * (ABNORMAL) Comprehensive metabolic panel (08/11/2018 9:20 AM [place] [place]) Sodium 141 135 - 145 mmol/L [facility] Potassium, pl 4.6 3.3 - 4.9 mmol/L [facility] Chloride 105 97 - 110 mmol/L [facility] CO2 28 22 - 32 mmol/L [facility] Anion gap 8 2 - 15 mmol/L [facility] BUN 15 8 - 25 mg/dL [facility] Creatinine 0.87 0.60 - 1.10 mg/dL [facility] Glucose 131 70 - 199 mg/dL [facility] [...] 2017. Calcium 10.8(H) 8.5 - 10.3 mg/dL [facility] Bilirubin, total 0.6 0.1 - 1.2 mg/dL [facility] Protein, pl 6.7 6.5 - 8.5 g/dL [facility] Albumin 4.2 3.5 - 5.0 g/dL [facility] Alk phos 88 40 - 130 Units/L [facility] ALT 20 7 - 45 Units/L [facility] AST 22 10 - 45 Units/L [facility] Blood specimen (specimen) 08/11/2018 9:20 AM [facility] 08/11/2018 9:31 AM [facility] Narrative [facility] - 08/11/2018 10:52 AM [facility] [facility] us Eren Cr MD LAB BLOOD ORDERABLES Final Re sult [facility] One [facility] Department [place] [address] * Differential, auto (08/11/2018 9:17 AM [facility]) Neutrophil abs 3.4 1.8 - 6.6 K/cumm [facility] Comment:Testing performed by : [facility], [address] [place] [phone] Lymphocyte abs 1.8 1.2 - 3.3 K/cumm [facility] Comment:Testing performed by : [facility], [address] [place] [phone] Monocyte abs 0.5 0.2 - 1.2 K/cumm [facility] Comment:Testing performed by : [facility], [address] [place] [phone] Eosinophil abs 0.1 0.0 - 0.5 K/cumm [facility] Comment:Testing performed by : [facility], [address] [place] [phone] Basophil abs 0.0 0.0 - 0.2 K/cumm [facility] Comment:Testing performed by : [facility], [address] [place] [phone] Neutrophil pct 58.4 % [facility] Comment: Interpretive Data Percent cell count reference ranges are not reported, since discordance with absolute values may lead to misinterpretation of CBC data. Current Interpretive Data was last revised on 2017. Testing performed by: [facility], [address] [place] [phone] Lymphocyte pct 30.6 % [facility] Comment: Interpretive Data Percent cell count reference ranges are not reported, since discordance with absolute values may lead to misinterpretation of CBC data. Current Interpretive Data was last revised on 2017. Testing performed by: [facility], [address] [place] [phone] Monocyte pct 9.1 % [facility] Comment:Testing performed by : [facility], [address] [place] [phone] Eosinophil pct 1.3 % [facility] Comment:Testing performed by : [facility], [address] [place] [phone] Basophil pct 0.6 % [facility] Comment:Testing performed by : [facility], [address] [place] [phone] Blood specimen (specimen) 08/11/2018 9:17 AM [facility] 08/11/2018 9:19 AM [place] [place] Narrative [facility] - 08/11/2018 9:23 AM [facility] [place] Eren Cr MD LAB BLOOD ORDERABLES Final Re sult [facility] One [facility] Department of Laboratories [place], [place] [id number] * (ABNORMAL) CBC with auto differential (08/11/2018 9:17 AM [facility]) WBC 5.8 3.8 - 9.8 K/cumm [facility] Comment:Testing performed by : [facility], [address] [place] [phone] Hgb 14.5 12.1 - 15.1 g/dL [facility] Comment:Testing performed by : [facility], [address] [place] [address] Hct 42.8 36.1 - 44.3 % [facility] Comment:Testing performed by : [facility], [address] [place] [address] Plt 137(L) 140 - 440 K/cumm [facility] Comment:Testing performed by : [facility], [address] [place] [address] MPV 7.7 6.8 - 10.4 fL [facility] Comment:Testing performed by : [place] [address] RBC 5.05(H) 3.90 - 5.00 M/cumm [facility] Comment:Testing performed by : [place] [address] MCV 84.8 80.0 - 97.6 fL [facility] Comment:Testing performed by : [facility], [address] [place] [address] MCH 28.8 26.7 - 33.7 pg [facility] Comment:Testing performed by : [place] [address] MCHC 33.9 32.7 - 35.5 g/dL [facility] Comment:Testing performed by : [place] [address] RDW CV 13.5 11.8 - 14.6 % [facility] Comment:Testing performed by : [facility], [address] [place] [address] NRBC abs 0.00 0.00 - 0.01 K/cumm [facility] Comment:Testing performed by : [place] [address] Blood specimen (specimen) 08/11/2018 9:17 AM [facility] 08/11/2018 9:19 AM [place] Narrative [facility] - 08/11/2018 9:23 AM [place] us Eren Cr MD LAB BLOOD ORDERABLES Final Re sult [facility] One [facility] Department [place] [address] documented in this encounter Visit Diagnoses Diagnosis Malignant neoplasm metastatic to liver (HCC) Neuroendocrine carcinoma (HCC) Other malignant neoplasm of unspecified site documented in this encounter Orders Appointment Requests Count Last Ordered Date Fi rst Ordered Date ONCBCN LAB APPOINTMENT 1 08/11/2018 documented in this encounter Care Teams Gas Singer Relationship Specialty Start Date End Date Julio César Briseno MD PCP - General 10/01/16 documented as of this encounter
--- OUTSIDE RECORDS SUMMARY | 2024-06-26 02:21 | XMS_ITS | Encounter Summary ---
Author Organization [facility] Address [address] [place] [address] Care Team Providers Care Atm Technician Name Role Phone Julio César Briseno MD Primary Care Provider [phone] Reason for Referral * Diagnostic Imaging (Routine) - Closed Specialty Diagnoses / Procedures Referred By Contac t Referred To Contact Radiology Diagnoses Malignant neoplasm metastatic to liver (HCC) Neuroendocrine carcinoma (HCC) Procedures CT Chest Abdomen Pelvis W Contrast Eren Cr MD Phone: tel: fax: [address] [phone] Referral ID Status Reason Start Date Expiration Date Visits Re quested Visits Authorized [id number] Closed 04/21/2018 10/31/2019 1 1 Reason for Visit * Diagnostic Imaging (Routine) - Closed Specialty Diagnoses / Procedures Referred By Contac t Referred To Contact Radiology Diagnoses Malignant neoplasm metastatic to liver (HCC) Neuroendocrine carcinoma (HCC) Procedures CT Chest Abdomen Pelvis W Contrast Eren Cr MD Phone: tel: fax: [address] [phone] Referral ID Status Reason Start Date Expiration Date Visits Re quested Visits Authorized [id number] Closed 04/21/2018 10/31/2019 1 1 Encounter Details Date Type Department Care Team (Latest Contact Info) Description 10/06/2018 9:00 AM CDT - 10/06/2018 11:59 PM CDT Hospital Encounter [facility] [address] [place] [address] Eren Cr MD [address] [place] [address] Malignant neoplasm metastatic to liver (CMS/HCC); Neuroendocrine [...] on file Legal Sex Female 2:41 PM SLOT EDITOR Gender Identity Not on file Sexual [...] capsuleIndicatio ns:supplement Take 1 tablet by mouth complaint inspector before breakfast 07/04/2016 4 cholecalciferol (VITAMIN D-3) 5,000 unit tablet Take 15,000 Units by mouth daily. 9 coenzyme [id number] E 100-5 mg-unit capsuleIndicatio ns:supplement Take 1 tablet by mouth complaint inspector before breakfast [address] (CYMBALTA) [...] 10/06/2018 documented in this encounter Care Teams Atm Technician Relationship Specialty Start Date End Date Julio César Briseno MD PCP - General 10/01/16 documented as of this encounter
--- OUTSIDE RECORDS SUMMARY | 2024-06-26 02:21 | XMS_ITS | Encounter Summary ---
Author Organization [facility] Address [address] [place] [address] Care Team Providers Care Continuous Dryout Operator Helper Name Role Phone Julio César Briseno MD Primary Care Provider [phone] Encounter Details Date Type Department Care Team (Late st Contact Info) Description 06/20/2018 10:10 AM [facility]SE[facility] Lab [address] [address] Social History Tobacco Use Types Packs/Day Years Used Date Smoking Tobacco: Never Smokeless Tobacco: Never Alcohol Use Standard Drinks/Week Comments Yes 1 (1 standard drink = 0.6 oz pur e alcohol) Comments No Sex and Gender Information Value Date Recorded Sex Assigned at Not on file 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
--- OUTSIDE RECORDS SUMMARY | 2024-06-26 02:21 | XMS_ITS | Encounter Summary ---
Author Organization [facility] Address [address] [place] [address] Phone Care Team Providers Care Ball Sorter Name Role Phone Julio César Briseno MD Primary Care Provider Encounter Details Date Type Department Care Team (Late st Contact Info) Description 09/01/[address] 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 I spoke to Sabrina Willard NP and she said that if Ms. Chung is symptomatic, we can reschedule her to be scanned and seen earlier. Agata will speak to Ms. Chung and call us if they want to reschedule. STOCK EXHIBITOR documented in this encounter Plan of Treatment Not on file documented as of this encounter Visit Diagnoses Not on filedocumented in this encounter Care Teams Ball Sorter Relationship Specialty Start Date End Date Julio César Briseno MD PCP - General 10/01/16 documented as of this encounter
--- OUTSIDE RECORDS SUMMARY | 2024-06-26 02:21 | XMS_ITS | Encounter Summary ---
Author Organization [facility] Address [address] [place] [address] Care Team Providers Care Lugger Name Role Phone Julio César Briseno MD Primary Care Provider [phone] Encounter Details Date Type Department Care Team (Late st Contact Info) Description 11/24/2018 Telephone [facility] Advanced Medicine Radiation Oncology [address] [facility] [place] [address] Yohana Bowen MD 49[address] [facility] [address] [place] [address] Social History Tobacco Use Types Packs/Day Years Used Date Smoking Tobacco: Never Smokeless Tobacco: Never Alcohol Use Standard Drinks/Week Comments Yes 1 (1 standard drink = 0.6 oz pur e alcohol) Comments No Sex and Gender Information Value Date Recorded Sex Assigned at Not on file Legal Sex Female 2:41 PM ROLL FILLER Gender Identity Not on file Sexual [...] with on 12/02 at 9:00am. Records in [facility], patient aware. documented in this encounter Plan of Treatment Not on file documented as of this encounter Visit Diagnoses Not on filedocumented in this encounter Care Teams Lugger Relationship Specialty Start Date End Date Julio César Briseno MD PCP - General 10/01/16 documented as of this encounter
--- OUTSIDE RECORDS SUMMARY | 2024-06-26 02:21 | XMS_ITS | Encounter Summary ---
Author Organization [facility] Healthcare Address [address] [place] [address] Care Team Providers Care Field Technician Name Role Phone Julio César Briseno MD Primary Care Provider [phone] Encounter Details Date Type Department Care Team (Late st Contact Info) Description 09/12/2018 Orders Only Oncology Eren Cr MD [address] [facility] [address] [place] [address] Malignant neoplasm metastatic to liver (CMS/HCC); Neuroendocrine carcinoma (CMS/HCC) Social History Tobacco Use Types Packs/Day Years Used Date Smoking Tobacco: Never Smokeless Tobacco: Never Alcohol Use Standard Drinks/Week Comments Yes 1 (1 standard drink = 0.6 oz pur e alcohol) Comments No Sex and Gender Information Value Date Recorded Sex Assigned at Not on file Legal Sex Female 2:41 PM DICE TABLE PERSON Gender Identity Not on file Sexual [...] documented in this encounter Care Teams Field Technician Relationship Specialty Start Date End Date Julio César Briseno MD PCP - General 10/01/16 documented as of this encounter
--- OUTSIDE RECORDS SUMMARY | 2024-06-26 02:21 | XMS_ITS | Encounter Summary ---
Author Organization [facility] Address [address] [place] [address] Phone Care Team Providers Care Conveyor Loader Name Role Phone Julio César Briseno MD Primary Care Provider [phone] 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) Procedures [place] OCTREOTIDE INJECTION, DEPOT Octreotide 28 Day Cycles - Carcinoid Eren Cr MD [address] [facility] [address] [place] [address] Phone: tel: fax: [address] [address] Phone: tel: fax: Referral ID Status Reason Start Date Expiration Date V isits Requested Visits Authorized [id number] Authorized 11/28/2017 02/05/2025 1 150 Encounter Details Date Type Department Care Team (Late st Contact Info) Description 11/24/2018 9:00 AM CDT Lab [facility] Oncology [address] [facility] Advanced [facility] 7th [place] [address] [place] [id number] Malignant neoplasm metastatic to liver (CMS/HCC); Neuroendocrine carcinoma (CMS/HCC) Social History Tobacco Use Types Packs/Day Years Used Date Smoking Tobacco: Never Smokeless Tobacco: Never Alcohol Use Standard Drinks/Week Comments Yes 1 (1 standard drink = 0.6 oz pur e alcohol) Comments No Sex and Gender Information Value Date Recorded Sex Assigned at Not on file Legal Sex Female 2:41 PM SURGICAL ASST Gender Identity Not on file Sexual [...] CDT) Sodium 141 135 - 145 mmol/L [facility] Potassium, pl 4.0 3.3 - 4.9 mmol/L [facility] Chloride 105 97 - 110 mmol/L [facility] CO2 29 22 - 32 mmol/L [facility] Anion gap 7 2 - 15 mmol/L [facility] BUN 14 8 - 25 mg/dL [facility] Creatinine 0.84 0.60 - 1.10 mg/dL [facility] Glucose 67(L) 70 - 199 mg/dL [facility] [...] 2017. Calcium 11.0(H) 8.5 - 10.3 mg/dL [facility] Bilirubin, total 0.8 0.1 - 1.2 mg/dL [facility] Protein, pl 6.8 6.5 - 8.5 g/dL [facility] Albumin 4.2 3.5 - 5.0 g/dL [facility] Alk phos 84 40 - 130 Units/L [facility] ALT 19 7 - 45 Units/L [facility] AST 25 10 - 45 Units/L [facility] Blood specimen (specimen) 11/24/2018 8:35 AM CDT 11/24/2018 8:49 AM CDT Narrative [facility] - 11/24/2018 9:20 AM CDT Eren Cr MD LAB BLOOD ORDERABLES Final Re sult [facility] Department [place] [address] * (ABNORMAL) Chromogranin A (11/24/2018 8:35 AM CDT) Chromogranin A 182(H) <93 ng/mL [facility] Comment: Impaired renal or hepatic function or [...] malignant disease. Test Performed by: [facility] [address] [place] [address] Blood specimen (specimen) 11/24/2018 8:35 AM CDT 11/24/2018 8:52 AM CDT Dylan BLACK - 11/25/2018 4:12 PM CDT Eren Cr MD LAB BLOOD ORDERABLES Final Re sult [facility] Department [place] [address] * Differential, auto (11/24/2018 8:33 AM CDT) Neutrophil abs 3.2 1.8 - 6.6 K/cumm [facility] Comment:Testing performed by : [facility], [facility] [phone] Lymphocyte abs 1.4 1.2 - 3.3 K/cumm [facility] Comment:Testing performed by : [facility], [facility] [address] Monocyte abs 0.6 0.2 - 1.2 K/cumm [facility] Comment:Testing performed by : [facility], [facility] [phone] Eosinophil abs 0.1 0.0 - 0.5 K/cumm [facility] Comment:Testing performed by : [facility], [address] [place] [phone] Basophil abs 0.0 0.0 - 0.2 K/cumm [facility] Comment:Testing performed by : [facility], [address] [place] [phone] Neutrophil pct 59.2 % [facility] Comment: Interpretive Data Percent cell count reference ranges are not reported, since discordance with absolute values may lead to misinterpretation of CBC data. Current Interpretive Data was last revised on 2017. Testing performed by: [facility], [address] [place] [phone] Lymphocyte pct 27.0 % [facility] Comment: Interpretive Data Percent cell count reference ranges are not reported, since discordance with absolute values may lead to misinterpretation of CBC data. Current Interpretive Data was last revised on 2017. Testing performed by: [facility], [address] [place] [phone] Monocyte pct 11.4 % [facility] Comment:Testing performed by : [facility], [address] [place] [phone] Eosinophil pct 1.7 % [facility] Comment:Testing performed by : [facility], [address] [place] [phone] Basophil pct 0.7 % [facility] Comment:Testing performed by : [facility], [address] [place] [phone] Blood specimen (specimen) 11/24/2018 8:33 AM CDT 11/24/2018 8:37 AM CDT Narrative [facility] - 11/24/2018 8:40 AM CDT us Eren Cr MD LAB BLOOD ORDERABLES Final Re sult [facility] Department [place] [address] * (ABNORMAL) CBC with auto differential (11/24/2018 8:33 AM CDT) WBC 5.4 3.8 - 9.8 K/cumm [facility] Comment:Testing performed by : [facility], [address] [place] [address] Hgb 14.2 12.1 - 15.1 g/dL [facility] Comment:Testing performed by : [facility], [address] [place] [address] Hct 41.1 36.1 - 44.3 % [facility] Comment:Testing performed by : [facility], [address] [place] [address] Plt 135(L) 140 - 440 K/cumm [facility] Comment:Testing performed by : [facility], [address] [place] [address] MPV 8.3 6.8 - 10.4 fL [facility] Comment:Testing performed by : [place] [address] RBC 4.84 3.90 - 5.00 M/cumm [facility] Comment:Testing performed by : [place] [address] MCV 84.9 80.0 - 97.6 fL [facility] Comment:Testing performed by : [facility], [address] [place] [address] MCH 29.2 26.7 - 33.7 pg [facility] Comment:Testing performed by : [place] [address] MCHC 34.4 32.7 - 35.5 g/dL [facility] Comment:Testing performed by : [place] [address] RDW CV 13.5 11.8 - 14.6 % [facility] Comment:Testing performed by : [facility], [address] [place] [address] NRBC abs 0.00 0.00 - 0.01 K/cumm [facility] Comment:Testing performed by : [place] [address] Blood specimen (specimen) 11/24/2018 8:33 AM CDT 11/24/2018 8:37 AM CDT Narrative [facility] - 11/24/2018 8:40 AM CDT us Eren Cr MD LAB BLOOD ORDERABLES Final Re sult [facility] Department [place] [address] documented in this encounter Visit Diagnoses Diagnosis Malignant neoplasm metastatic to liver (HCC) Neuroendocrine carcinoma (HCC) Other malignant neoplasm of unspecified site documented in this encounter Orders Appointment Requests Count Last Ordered Date Fi rst Ordered Date ONCBCN LAB APPOINTMENT 1 11/24/2018 documented in this encounter Care Teams Conveyor Loader Relationship Specialty Start Date End Date Julio César Briseno MD PCP - General 10/01/16 documented as of this encounter
--- OUTSIDE RECORDS SUMMARY | 2024-06-26 02:21 | XMS_ITS | Encounter Summary ---
Author Organization [facility] Address [address] [place] [address] Phone Care Team Providers Care Lamp Shade Assembler Name Role Phone Julio César Briseno MD Primary Care Provider Encounter Details Date Type Department Care Team (Late st Contact Info) Description 08/19/2018 Orders Only [facility] Oncology [address] [facility] 7th [place] [address] [place] [address] Mayela Williamson, [place] Social History Tobacco Use Types Packs/Day Years Used Date Smoking Tobacco: Never Smokeless Tobacco: Never Alcohol Use Standard Drinks/Week Comments Yes 1 (1 standard drink = 0.6 oz pur e alcohol) Comments No Sex and Gender Information Value Date Recorded Sex Assigned at Not on file Legal Sex Female 2:41 PM APPLICATION SUPPORT MANAGER Gender Identity Not on file [...] 04/24/2019 added in this encounter Care Teams Lamp Shade Assembler Relationship Specialty Start Date End Date Julio César Briseno MD PCP - General 10/01/16 documented as of this encounter
--- OUTSIDE RECORDS SUMMARY | 2024-06-26 02:21 | XMS_ITS | Encounter Summary ---
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) Procedures [place] OCTREOTIDE INJECTION, DEPOT Octreotide 28 Day Cycles - Carcinoid Eren Cr MD [address] [facility] [address] [place] [address] Phone: tel: fax: [address] [address] Phone: tel: fax: Referral ID Status Reason Start Date Expiration Date V isits Requested Visits Authorized [id number] Authorized 11/28/2017 02/05/2025 1 150 Encounter Details Date Type Department Care Team (Late st Contact Info) Description 05/19/2018 9:15 AM BOOKMAKER'S CLERK Lab [facility] Oncology [address] [facility] Advanced Medicine 7th [place] [address] [place] [address] Malignant neoplasm metastatic to liver (CMS/HCC); Neuroendocrine carcinoma (CMS/HCC) Social History Tobacco Use Types Packs/Day Years Used Date Smoking Tobacco: Never Smokeless Tobacco: Never Alcohol Use Standard Drinks/Week Comments Yes 1 (1 standard drink = 0.6 oz pur e alcohol) Comments No Sex and Gender Information Value Date Recorded Sex Assigned at Not on file Legal Sex Female 2:41 PM BOOKMAKER'S CLERK Gender Identity Not on file Sexual Orientation Straight 02/19/2021 9: 29 AM CDT Occupation Industry Job Start Date Job End Date retired Not on file Not on file Not on file documented as of this encounter Plan of Treatment Not on file documented as of this encounter Procedures Procedure Name Priority Date/Time Associated Diagnosis Comments CHROMOGRANIN A Routine 05/19/2018 9:05 AM BOOKMAKER'S CLERK Malignant neoplasm metastatic to liver (CMS/HCC) Neuroendocrine carcinoma (CMS/HCC) COMPREHENSIVE METABOLIC PANEL STAT 05/19/2018 9:05 AM BOOKMAKER'S CLERK Malignant neoplasm metastatic to liver (CMS/HCC) Neuroendocrine carcinoma (CMS/HCC) DIFFERENTIAL AUTO STAT 05/19/2018 9:0 4 AM BOOKMAKER'S CLERK Malignant neoplasm metastatic to liver (CMS/HCC) Neuroendocrine carcinoma (CMS/HCC) CBC WITH AUTO DIFFERENTIAL STAT 05/19/2018 9:04 AM BOOKMAKER'S CLERK Malignant neoplasm metastatic to liver (CMS/HCC) Neuroendocrine carcinoma (CMS/HCC) documented in this encounter Results * (ABNORMAL) Chromogranin A (05/19/2018 9:05 AM BOOKMAKER'S CLERK) Chromogranin A 106(H) <93 ng/mL [facility] Comment: [...] Performed by: [facility] [address] [place] [address] Blood specimen (specimen) 05/19/2018 9:05 AM BOOKMAKER'S CLERK 05/19/2018 9:35 AM BOOKMAKER'S CLERK Narrative [facility] - 05/20/2018 1:44 PM BOOKMAKER'S CLERK us Eren Cr MD LAB BLOOD ORDERABLES Final Re sult [facility] One [facility] Department [place] [address] * (ABNORMAL) Comprehensive metabolic panel (05/19/2018 9:05 AM BOOKMAKER'S CLERK) Sodium 140 135 - 145 mmol/L [facility] Potassium, pl 4.0 3.3 - 4.9 mmol/L [facility] Chloride 103 97 - 110 mmol/L [facility] CO2 29 22 - 32 mmol/L [facility] Anion gap 8 2 - 15 mmol/L [facility] BUN 14 8 - 25 mg/dL [facility] Creatinine 0.95 0.60 - 1.10 mg/dL [facility] Glucose 113 70 - 199 mg/dL [facility] [...] 2017. Calcium 10.9(H) 8.5 - 10.3 mg/dL [facility] Bilirubin, total 0.8 0.1 - 1.2 mg/dL [facility] Protein, pl 7.2 6.5 - 8.5 g/dL [facility] Albumin 4.6 3.5 - 5.0 g/dL [facility] Alk phos 95 40 - 130 Units/L [facility] ALT 18 7 - 45 Units/L [facility] AST 23 10 - 45 Units/L [facility] Blood specimen (specimen) 05/19/2018 9:05 AM BOOKMAKER'S CLERK 05/19/2018 9:20 AM BOOKMAKER'S CLERK Narrative [facility] - 05/19/2018 9:54 AM BOOKMAKER'S CLERK us Eren Cr MD LAB BLOOD ORDERABLES Final Re sult [facility] One [facility] Department [place] [address] * Differential, auto (05/19/2018 9:04 AM BOOKMAKER'S CLERK) Neutrophil abs 3.8 1.8 - 6.6 K/cumm [facility] Comment:Testing performed by : [facility], [address] [place] [phone] Lymphocyte abs 2.3 1.2 - 3.3 K/cumm [facility] Comment:Testing performed by : [facility], [address] [place] [phone] Monocyte abs 0.6 0.2 - 1.2 K/cumm [facility] Comment:Testing performed by : [facility], [address] [place] [phone] Eosinophil abs 0.1 0.0 - 0.5 K/cumm [facility] Comment:Testing performed by : [facility], [address] [place] [phone] Basophil abs 0.1 0.0 - 0.2 K/cumm [facility] Comment:Testing performed by : [facility], [address] [place] [phone] Neutrophil pct 55.7 % [facility] Comment: Interpretive Data Percent cell count reference ranges are not reported, since discordance with absolute values may lead to misinterpretation of CBC data. Current Interpretive Data was last revised on 2017. Testing performed by: [facility], [address] [place] [phone] Lymphocyte pct 33.4 % [facility] Comment: Interpretive Data Percent cell count reference ranges are not reported, since discordance with absolute values may lead to misinterpretation of CBC data. Current Interpretive Data was last revised on 2017. Testing performed by: [facility], [address] [place] [phone] Monocyte pct 8.4 % [facility] Comment:Testing performed by : [facility], [address] [place] [phone] Eosinophil pct 1.5 % [facility] Comment:Testing performed by : [facility], [address] [place] [phone] Basophil pct 1.0 % [facility] Comment:Testing performed by : [facility], [address] [place] [phone] Blood specimen (specimen) 05/19/2018 9:04 AM BOOKMAKER'S CLERK 05/19/2018 9:06 AM BOOKMAKER'S CLERK Narrative [facility] - 05/19/2018 9:17 AM BOOKMAKER'S CLERK Eren Cr MD LAB BLOOD ORDERABLES Final [facility] One [facility] Department [place] [address] * (ABNORMAL) CBC with auto differential (05/19/2018 9:04 AM BOOKMAKER'S CLERK) WBC 6.8 3.8 - 9.8 K/cumm [facility] Comment:Testing performed by : [facility], [address] [place] [phone] Hgb 15.1 12.1 - 15.1 g/dL [facility] Comment:Testing performed by : [facility], [address] [place] [address] Hct 44.2 36.1 - 44.3 % [facility] Comment:Testing performed by : [facility], [address] [place] [address] Plt 171 140 - 440 K/cumm [facility] Comment:Testing performed by : [place] [address] MPV 8.1 6.8 - 10.4 fL [facility] Comment:Testing performed by : [place] [address] RBC 5.19(H) 3.90 - 5.00 M/cumm [facility] Comment:Testing performed by : [place] [address] MCV 85.1 80.0 - 97.6 fL [facility] Comment:Testing performed by : [place] [address] MCH 29.1 26.7 - 33.7 pg [facility] Comment:Testing performed by : [place] [address] MCHC 34.2 32.7 - 35.5 g/dL [facility] Comment:Testing performed by : [place] [address] RDW CV 13.8 11.8 - 14.6 % [facility] Comment:Testing performed by : [place] [address] NRBC abs 0.02(H) 0.00 - 0.01 K/cumm [facility] Comment:Testing performed by : [place] [address] Blood specimen (specimen) 05/19/2018 9:04 AM BOOKMAKER'S CLERK 05/19/2018 9:06 AM BOOKMAKER'S CLERK Narrative [facility] - 05/19/2018 9:17 AM BOOKMAKER'S CLERK Eren Cr MD LAB BLOOD ORDERABLES Final Re sult [facility] One [facility] Department [place] [address] documented in this encounter Visit Diagnoses Diagnosis Malignant neoplasm metastatic to liver (HCC) Neuroendocrine carcinoma (HCC) Other malignant neoplasm of unspecified site documented in this encounter Orders Appointment Requests Count Last Ordered Date Fi rst Ordered Date ONCBCN LAB APPOINTMENT 1 05/19/2018 documented in this encounter Care Teams Inner Tube Cutter Relationship Specialty Start Date End Date Julio César Briseno MD PCP - General 10/01/16 documented as of this encounter
--- OUTSIDE RECORDS SUMMARY | 2024-06-26 02:21 | XMS_ITS | Encounter Summary ---
Author Organization [facility] Address [address] [place] [address] Phone Care Team Providers Care Business Management Intern Name Role Phone Julio César Briseno MD Primary Care Provider [phone] 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) Procedures [place] OCTREOTIDE INJECTION, DEPOT Octreotide 28 Day Cycles - Carcinoid Eren Cr MD [address] [facility] [address] [place] [address] Phone: tel: fax: [address] [address] Phone: tel: fax: Referral ID Status Reason Start Date Expiration Date V isits Requested Visits Authorized [id number] Authorized 11/28/2017 02/05/2025 1 150 Encounter Details Date Type Department Care Team (Late st Contact Info) Description 01/27/2018 9:15 AM CDT Lab [facility] Oncology [address] 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, [address] [place] [phone] Lymphocyte abs 1.9 1.2 - 3.3 K/cumm J[facility]ON [facility] Comment:Testing performed by : [facility], [address] [place] [phone] Monocyte abs 0.4 0.2 - 1.2 K/cumm [facility]ON [facility] Comment:Testing performed by : [facility], [address] [place] [phone] Eosinophil abs 0.1 0.0 - 0.5 K/cumm JASON [facility] Comment:Testing performed by : [facility], [address] [place] [phone] Basophil abs 0.0 0.0 - 0.2 K/cumm JASON [facility] Comment:Testing performed by : [facility], [address] [place] [phone] Neutrophil pct 55.8 % JASON [facility] Comment: Interpretive Data Percent cell count reference ranges are not reported, since discordance with absolute values may lead to misinterpretation of CBC data. Current Interpretive Data was last revised on 2017. Testing performed by: [facility], [address] [place] [phone] Lymphocyte pct 34.2 % JASON [facility] Comment: Interpretive Data Percent cell count reference ranges are not reported, since discordance with absolute values may lead to misinterpretation of CBC data. Current Interpretive Data was last revised on 2017. Testing performed by: [facility], [address] [place] [phone] Monocyte pct 7.6 % JASON [facility] Comment:Testing performed by : [facility], [address] [place] [phone] Eosinophil pct 1.8 % JASON [facility] Comment:Testing performed by : [facility], [address] [place] [phone] Basophil pct 0.6 % JASON [facility] Comment:Testing performed by : [facility], [address] [place] [phone] Blood specimen (specimen) 01/27/2018 9:18 AM CDT 01/27/2018 9:20 AM CDT Narrative JASON [facility] - 01/27/2018 9:25 AM CDT us Eren Cr MD LAB BLOOD ORDERABLES Final Re sult JASON [facility] Department [place] [address] * CBC with auto differential (01/27/2018 9:18 AM CDT) WBC 5.6 3.8 - 9.8 K/cumm C[facility]ER [facility] Comment:Testing performed by : [facility], [address] [place] [address] Hgb 13.6 12.1 - 15.1 g/dL [facility] Comment:Testing performed by : [facility], [address] [place] [address] Hct 40.2 36.1 - 44.3 % [facility] Comment:Testing performed by : [facility], [address] [place] [address] Plt 143 140 - 440 K/cumm [facility] Comment:Testing performed by : [place] [address] MPV 7.7 6.8 - 10.4 fL [facility] Comment:Testing performed by : [place] [address] RBC 4.71 3.90 - 5.00 M/cumm [facility] Comment:Testing performed by : [facility], [address] [place] [address] MCV 85.4 80.0 - 97.6 fL [facility] Comment:Testing performed by : [place] [address] MCH 28.8 26.7 - 33.7 pg [facility] Comment:Testing performed by : [place] [address] MCHC 33.7 32.7 - 35.5 g/dL [facility] Comment:Testing performed by : [facility], [address] [place] [address] RDW CV 13.9 11.8 - 14.6 % [facility] Comment:Testing performed by : [place] [address] NRBC abs 0.00 0.00 - 0.01 K/cumm [facility] Comment:Testing performed by : [facility], [address] [place] [address] Blood specimen (specimen) 01/27/2018 9:18 AM CDT 01/27/2018 9:20 AM CDT Narrative JASON BLACK - 01/27/2018 9:25 AM CDT Eren Cr MD LAB BLOOD ORDERABLES Final Re sult Performing Organization Address [facility] Co de Phone Number JASON [facility] Department [place] [address] * Chromogranin A (01/27/2018 9:14 AM CDT) Chromogranin A 81 <93 ng/mL [facility] Comment: A reagent change was implemented [...] absence of malignant disease. Test Performed by: [address] [address] Blood specimen (specimen) 01/27/2018 9:14 AM CDT 01/27/2018 3:21 PM CDT Narrative JASON BLACK - 01/28/2018 1:59 PM CDT Eren Cr MD LAB BLOOD ORDERABLES Final Re sult Performing Organization Address [facility] Co de Phone Number [facility] Department [place] [place] [address] * (ABNORMAL) Comprehensive metabolic panel (01/27/2018 9:14 AM CDT) Sodium 142 135 - 145 mmol/L [facility] Potassium, pl 4.6 3.3 - 4.9 mmol/L [facility] Chloride 106 97 - 110 mmol/L [facility] CO2 30 22 - 32 mmol/L [facility] Anion gap 6 2 - 15 mmol/L [facility] BUN 15 8 - 25 mg/dL [facility] Creatinine 0.87 0.60 - 1.10 mg/dL [...] Calcium 10.4(H) 8.5 - 10.3 mg/dL [facility] Bilirubin, total 0.6 0.1 - 1.2 mg/dL [facility] Protein, pl 6.9 6.5 - 8.5 g/dL [facility] Albumin 4.0 3.5 - 5.0 g/dL [facility] Alk phos 89 40 - 130 Units/L [facility] ALT 16 7 - 45 Units/L [facility] AST 23 10 - 45 Units/L [facility] Blood specimen (specimen) 01/27/2018 9:14 AM CDT 01/27/2018 9:33 AM CDT Narrative [facility] - 01/27/2018 10:24 AM CDT us Eren Cr MD LAB BLOOD ORDERABLES Final Re sult [facility] Department [place] [address] documented in this encounter Visit Diagnoses Diagnosis Malignant neoplasm metastatic to liver (HCC) Neuroendocrine carcinoma (HCC) Other malignant neoplasm of unspecified site documented in this encounter Orders Appointment Requests Count Last Ordered Date Fi rst Ordered Date ONCBCN LAB APPOINTMENT 1 01/27/2018 documented in this encounter Care Teams Business Management Intern Relationship Specialty Start Date End Date Julio César Briseno MD PCP - General 10/01/16 documented as of this encounter
--- OUTSIDE RECORDS SUMMARY | 2024-06-26 02:21 | XMS_ITS | Encounter Summary ---
Author Organization [facility] Address [address] [place] [address] Phone Care Team Providers Care Salesperson Household Appliances Name Role Phone Julio César Briseno MD Primary Care Provider [phone] Reason for Visit * Reason Comments Injections * Episode Based Medications (Routine) - Authorized Specialty Diagnoses / Procedures Referred By Contac t Referred To Contact Oncology Diagnoses Neuroendocrine carcinoma (HCC) Malignant neoplasm metastatic to liver (HCC) Procedures [place] OCTREOTIDE INJECTION, DEPOT Octreotide 28 Day Cycles - Carcinoid Eren Cr MD [address] [facility] [address] [place] [address] Phone: tel: fax: [facility] [address] [address] Phone: tel: fax: Referral ID Status Reason Start Date Expiration Date V isits Requested Visits Authorized [id number] Authorized 11/28/2017 02/05/2025 1 150 Encounter Details Date Type Department Care Team (Late st Contact Info) Description 02/24/2018 10:00 AM CDT Infusion [facility] Oncology [facility] Medicine 7th [place] [address] 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); Neuroendocrine carcinoma (CMS/HCC) Social History Tobacco Use Types Packs/Day Years Used Date Smoking Tobacco: Never Smokeless Tobacco: Never Alcohol Use Standard Drinks/Week Comments Yes 1 (1 standard drink = 0.6 oz pur e alcohol) Comments No Sex and Gender Information Value Date Recorded Sex Assigned at Not on file Legal Sex Female 2:41 PM 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
--- OUTSIDE RECORDS SUMMARY | 2024-06-26 02:21 | XMS_ITS | Encounter Summary ---
Author Organization [facility] Address [address] [place] [address] Phone Care Team Providers Care Warp Doffer Name Role Phone Julio César Briseno MD Primary Care Provider [phone] Reason for Visit * Reason Comments Injections * Episode Based Medications (Routine) - Authorized Specialty Diagnoses / Procedures Referred By Contac t Referred To Contact Oncology Diagnoses Neuroendocrine carcinoma (HCC) Malignant neoplasm metastatic to liver (HCC) Procedures [place] OCTREOTIDE INJECTION, DEPOT Octreotide 28 Day Cycles - Carcinoid Eren Cr MD [address] [facility] [address] [place] [address] Phone: tel: fax: [facility] [address] [address] Phone: tel: fax: Referral ID Status Reason Start Date Expiration Date V isits Requested Visits Authorized [id number] Authorized 11/28/2017 02/05/2025 1 150 Encounter Details Date Type Department Care Team (Late st Contact Info) Description 09/15/2018 7:45 AM CDT Infusion [facility] Oncology 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
--- OUTSIDE RECORDS SUMMARY | 2024-06-26 02:21 | XMS_ITS | Encounter Summary ---
Author Organization [facility] Address [address] [place] [address] Phone Care Team Providers Care Order Dispatcher Name Role Phone Julio César Briseno MD Primary Care Provider [phone] 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) Procedures [place] OCTREOTIDE INJECTION, DEPOT Octreotide 28 Day Cycles - Carcinoid Eren Cr MD [address] [facility] [address] [place] [address] Phone: tel: fax: [address] [address] Phone: tel: fax: Referral ID Status Reason Start Date Expiration Date V isits Requested Visits Authorized [id number] Authorized 11/28/2017 02/05/2025 1 150 Encounter Details Date Type Department Care Team (Late st Contact Info) Description 12/30/2017 10:00 AM CDT Infusion [facility] Oncology [facility] Advanced Medicine 7th [place] [address] 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); Neuroendocrine carcinoma (CMS/HCC) Social History Tobacco Use Types Packs/Day Years Used Date Smoking Tobacco: Former Comments Unknown Sex and Gender Information Value Date Recorded Sex Assigned at Not on file Legal Sex Female 2:41 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
--- OUTSIDE RECORDS SUMMARY | 2024-06-26 02:21 | XMS_ITS | Encounter Summary ---
Author Organization [facility] Address [address] [place] [address] Phone Care Team Providers Care Supervisor Rolling Room Name Role Phone Julio César Briseno MD Primary Care Provider [phone] Encounter Details Date Type Department Care Team (Late st Contact Info) Description 08/18/2018 Orders Only [facility] Oncology [address] [place] [address] Eren Cr MD [address] [place] [address] Social History Tobacco Use Types Packs/Day Years Used Date Smoking Tobacco: Never Smokeless Tobacco: Never Alcohol Use Standard Drinks/Week Comments Yes 1 (1 standard drink = 0.6 oz pur e alcohol) Comments No Sex and Gender Information Value Date Recorded Sex Assigned at Not on file Legal 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
--- OUTSIDE RECORDS SUMMARY | 2024-06-26 02:21 | XMS_ITS | Encounter Summary ---
Author Organization [facility] Address [address] [place] [address] Phone Care Team Providers Care Publications Distribution Clerk Name Role Phone Julio César Briseno MD Primary Care Provider [phone] Encounter Details Date Type Department Care Team (Late st Contact Info) Description 09/16/2018 Telephone [facility] Oncology [address] [facility] Advanced [facility] 7th [place] [address] [place] [address] Jeevan Martino, RN [address] [place] [address] Social History Tobacco Use Types Packs/Day Years Used Date Smoking Tobacco: Never Smokeless Tobacco: Never Alcohol Use Standard Drinks/Week Comments Yes 1 (1 standard drink = 0.6 oz pur e alcohol) Comments No Sex and Gender Information Value Date Recorded Sex Assigned at Not on file 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
--- OUTSIDE RECORDS SUMMARY | 2024-06-26 02:21 | XMS_ITS | Encounter Summary ---
Author Organization [facility] Address [address] [place] [address] Care Team Providers Care Fire Management Officer Name Role Phone Julio César Briseno MD Primary Care Provider Encounter Details Date Type Department Care Team (Late st Contact Info) Description 01/27/2018 10:50 [place] [address] Social History Tobacco Use Types Packs/Day Years Used Date Smoking Tobacco: Never Smokeless Tobacco: Never Alcohol Use Standard Drinks/Week Comments Yes 1 (1 standard drink = 0.6 oz pur e alcohol) Comments No Sex and Gender Information Value Date Recorded Sex Assigned at Not on file 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 Gender Identity Not on file Sexual [...] 25-OH 37 30 - 80 ng/mL [facility] Blood specimen (specimen) 01/27/2018 10:51 AM CDT 01/27/2018 10:57 AM CDT Narrative [facility]ON [facility] - 01/27/2018 12:05 PM CDT us Bailee Alcazar MD LAB BLOOD ORDERABLES Fin al Result [facility] [place] [address] documented in this encounter Visit Diagnoses Not on filedocumented in this encounter Care Teams Fire Management Officer Relationship Specialty Start Date End Date Julio César Briseno MD PCP - General 10/01/16 documented as of this encounter
--- OUTSIDE RECORDS SUMMARY | 2024-06-26 02:21 | XMS_ITS | Encounter Summary ---
Author Organization [facility] Address [address] [place] [address] Phone Care Team Providers Care Training Director Name Role Phone Julio César Briseno MD Primary Care Provider [phone] Reason for Referral * Consultation (Routine) - Closed Specialty Diagnoses / Procedures Referred By Contac t Referred To Contact Radiation Oncology Diagnoses Malignant neoplasm metastatic to liver (HCC) Neuroendocrine carcinoma (HCC) Eren Cr MD Phone: tel: fax: [facility] Advanced Medicine Radiation Oncology [address] [facility] Advanced Medicine [facility] [place] [address] Phone: tel: fax: Referral ID Status Reason Start Date Expiration Date V isits Requested Visits Authorized [id number] Closed Specialty Services Required 11/24/2018 06/04/2020 1 1 Question Answer Is this referral for Breast Health Multi-Disciplinary Clinic? No Please select the performing region: [facility] [[id number]] Please select the performing department: [facility] CAM RAD ONC [] # of [...] Cycles - Carcinoid Eren Cr MD [address] [facility] [address] [place] [address] Phone: tel: fax: [facility] Cancer [address] [address] Phone: tel: fax: Referral ID Status Reason Start Date Expiration Date V isits Requested Visits Authorized [id number] Authorized 11/28/2017 02/05/2025 1 150 Encounter Details Date Type Department Care Team (Late st Contact Info) Description 11/24/2018 10:00 AM CDT Office Visit [facility] Oncology [address] [facility] 7th [place] [address] [place] [address] Eren Cr MD [address] [facility] [address] [place] [address] Malignant neoplasm metastatic to liver (CMS/HCC); Neuroendocrine [...] on file Legal Sex Female 2:41 PM SHAGGER Gender Identity Not on file Sexual Orientation [...] also underwent right colectomy in [facility] [place] by Dr. Greyson Reeves. Biopsy revealed [...] DAILY NEEDED, Disp: , Rfl: ??? coenzyme [id number] (CO Q-10, WITH VIT E,) 100-5 [...] for initiating PRRT. Active Treatment Plans for [facility] [...] 019 documented in this encounter Care Teams Training Director Relationship Specialty Start Date End Date Julio César Briseno MD PCP - General 10/01/16 documented as of this encounter
--- OUTSIDE RECORDS SUMMARY | 2024-06-26 02:21 | XMS_ITS | Encounter Summary ---
Author Organization [facility] Healthcare Address [address] [place] [address] Care Team Providers Care Retail Training Manager Name Role Phone Julio César Briseno MD Primary Care Provider [phone] Reason for Visit * Diagnostic Lab (Routine) - Closed Specialty Diagnoses / Procedures Referred By Evelyne bowman Referred To Contact Lab Diagnoses Carcinoid tumor Procedures Cytology Oksana Rivas NP Phone: tel: fax: Referral ID Status Reason Start Date Expiration Date Visits Re quested Visits Authorized [id number] Closed 06/18/2018 12/28/2019 1 1 Encounter Details Date Type Department Care Team (Late st Contact Info) Description 06/19/2018 1:35 AM MEDICAL TRANSCRIPTIONIST Lab [facility] PATHOLOGY [address] [place] [address] Carcinoid tumor Social History Tobacco Use Types Packs/Day Years Used Date Smoking Tobacco: Never Smokeless Tobacco: Never Alcohol Use Standard Drinks/Week Comments Yes 1 (1 standard drink = 0.6 oz pur e alcohol) Comments No Sex and Gender Information Value Date Recorded Sex Assigned at Not on file Legal Sex Female 2:41 PM MEDICAL TRANSCRIPTIONIST Gender Identity Not on file Sexual Orientation Straight 02/19/2021 9: 29 AM CDT Occupation Industry Job Start Date Job End Date retired Not on file Not on file Not on file documented as of this encounter Plan of Treatment Not on file documented as of this encounter Procedures Procedure Name Priority Date/Time Associated Diagnosis Comments CYTOLOGY Routine 06/18/2018 3:12 PM MEDICAL TRANSCRIPTIONIST Carcinoid tumor documented in this encounter Results * Cytology (06/18/2018 3:12 PM MEDICAL TRANSCRIPTIONIST) Fluid 06/18/2018 3:12 PM MEDICAL TRANSCRIPTIONIST 06/18/2018 5:42 PM MEDICAL TRANSCRIPTIONIST Narrative PATHOLOGY [facility] - 07/04/2018 10:29 AM MEDICAL TRANSCRIPTIONIST EPIC results best viewed via link to PDF [facility] [place] [address] CYTOPATHOLOGY REPORT FINAL Patient Name: ??LA CHUNG Gender: ??F : ??1950 (Age: 67) Address: ??[address] [place] [address] ??[address] Hospital #: ??[id number] Service: ??CIGARETTE PACKER Location: ??[facility] Patient Type: ??[facility] Ref Lab Taken: ??06/18/2018 Received: ??06/18/2018 Accessioned: [...] 66. ??This HPV test was performed at [facility] in [place], [place] utilizing the Gen-Probe Aptima assay. This specimen has been rescreened in accordance with this laboratory's Barrel And Receiver Aligner Program. /07/04/2018 10:29 JAMES Thomas(ASCP) Report Electronically [...] tumor. The HPV test was performed by [facility], [address] [place] [address]. Report Images and scanned documents, if included only viewable in PDF version The performance characteristics of some immunohistochemical stains, in-situ hybridization and fluorescence in-situ hybridization tests and immunophenotyping by flow cytometry cited in this report (if any) were determined by the Surgical Pathology Department at [facility] as part of an ongoing manufacturing quality technician program and in compliance with federally mandated [...] determined by the Surgical Pathology Department of [facility]. ??It has not been cleared or approved by the U. S. Food and Drug Administration. 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
--- OUTSIDE RECORDS SUMMARY | 2024-06-26 02:21 | XMS_ITS | Encounter Summary ---
Author Organization [facility] Address [address] [place] [address] Phone Care Team Providers Care Date Night Caregiver Name Role Phone Julio César Briseno MD Primary Care Provider [phone] 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) Procedures DE OCTREOTIDE INJECTION, DEPOT Octreotide 28 Day Cycles - Carcinoid Eren Cr MD [address] [facility] [address] [place] [address] Phone: tel: fax: [address] [address] Phone: tel: fax: Referral ID Status Reason Start Date Expiration Date V isits Requested Visits Authorized [id number] Authorized 11/28/2017 02/05/2025 1 150 Encounter Details Date Type Department Care Team (Late st Contact Info) Description 03/24/2018 10:00 AM CDT Infusion [facility] Oncology formerly [facility]1 [facility] Advanced Medicine 7th [place] [address] 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); Neuroendocrine carcinoma (CMS/HCC) Social History Tobacco Use Types Packs/Day Years Used Date Smoking Tobacco: Never Smokeless Tobacco: Never Alcohol Use Standard Drinks/Week Comments Yes 1 (1 standard drink = 0.6 oz pur e alcohol) Comments No Sex and Gender Information Value Date Recorded Sex Assigned at Not on file Legal Sex Female 2:41 PM UNIT COORDINATOR Gender Identity Not on file Sexual [...] 03/08 documented in this encounter Care Teams Date Night Caregiver Relationship Specialty Start Date End Date Julio César Briseno MD PCP - General 10/01/16 documented as of this encounter
--- OUTSIDE RECORDS SUMMARY | 2024-06-26 02:21 | XMS_ITS | Encounter Summary ---
Author Organization [facility] Address [address] [place] [address] Care Team Providers Care Field Spec Name Role Phone Julio César Briseno MD Primary Care Provider [phone] Reason for Referral * Diagnostic Imaging (Routine) - Closed Specialty Diagnoses / Procedures Referred By Contac t Referred To Contact Radiology Diagnoses Neuroendocrine carcinoma of small bowel (HCC) Procedures CT Chest Abdomen Pelvis W Contrast Eren Cr MD Phone: tel: fax: [address] [address] Referral ID Status Reason Start Date Expiration Date Visits Re quested Visits Authorized [id number] Closed 04/14/2018 10/24/2019 1 1 Reason for Visit * Diagnostic Imaging (Routine) - Closed Specialty Diagnoses / Procedures Referred By Contac t Referred To Contact Radiology Diagnoses Neuroendocrine carcinoma of small bowel (HCC) Procedures CT Chest Abdomen Pelvis W Contrast Eren Cr MD Phone: tel: fax: [address] [address] Referral ID Status Reason Start Date Expiration Date Visits Re quested Visits Authorized [id number] Closed 04/14/2018 10/24/2019 1 1 Encounter Details Date Type Department Care Team (Latest Contact Info) Description 04/21/2018 8:34 AM CDT - 04/21/2018 11:59 PM CDT Hospital Encounter [facility] Radiology [facility] [address] [place] [address] Eren Cr MD [address] [facility] [address] [place] [address] Neuroendocrine carcinoma of small bowel (CMS/HCC) Discharge [...] on file Legal Sex Female 2: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 9 coenzyme [id number] [id number] 100-5 mg-unit capsuleIndicatio ns:supplement Take 1 tablet by mouth collective bargaining specialist before breakfast [address] (CYMBALTA) 30 [...] signed by: Fly Benavidez M.D. us Eren Cr MD IMG CT [...] 04/21/2018 documented in this encounter Care Teams Field Spec Relationship Specialty Start Date End Date Julio César Briseno MD PCP - General 10/01/16 documented as of this encounter
--- OUTSIDE RECORDS SUMMARY | 2024-06-26 02:21 | XMS_ITS | Encounter Summary ---
Author Organization [facility] Address [address] [place] [address] Phone Care Team Providers Care Insulator Helper Name Role Phone Julio César Briseno MD Primary Care Provider [phone] 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) Procedures CO OCTREOTIDE INJECTION, DEPOT Octreotide 28 Day Cycles - Carcinoid Eren Cr MD [address] [facility] [address] [place] [address] Phone: tel: fax: [address] [address] Phone: tel: fax: Referral ID Status Reason Start Date Expiration Date V isits Requested Visits Authorized [id number] Authorized 11/28/2017 02/05/2025 1 150 Encounter Details Date Type Department Care Team (Late st Contact Info) Description 01/27/2018 10:00 AM CDT Infusion 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
--- OUTSIDE RECORDS SUMMARY | 2024-06-26 02:21 | XMS_ITS | Encounter Summary ---
Author Organization [facility] Address [address] [place] [address] Phone Care Team Providers Care Desizing Machine Offbearer Name Role Phone Julio César Briseno MD Primary Care Provider Encounter Details Date Type Department Care Team (Late st Contact Info) Description 10/13/2018 Orders Only [facility] Oncology [address] [facility] 7th [place] [address] [place] [address] Roshni Gutierrez CMA Social History Tobacco Use Types Packs/Day Years Used Date Smoking Tobacco: Never Smokeless Tobacco: Never Alcohol Use Standard Drinks/Week Comments Yes 1 (1 standard drink = 0.6 oz pur e alcohol) Comments No Sex and Gender Information Value Date Recorded Sex Assigned at Not on file Legal Sex Female 2:41 PM ENTREPRENEUR Gender Identity Not on file Sexual Orientation Straight 02/19/2021 9: 29 AM CDT Occupation Industry Job Start Date Job End Date retired Not on file Not on file Not on file documented as of this encounter Plan of Treatment Not on file documented as of this encounter Visit Diagnoses Not on filedocumented in this encounter Care Teams Desizing Machine Offbearer Relationship Specialty Start Date End Date Julio César Briseno MD PCP - General 10/01/16 documented as of this encounter
--- OUTSIDE RECORDS SUMMARY | 2024-06-26 02:21 | XMS_ITS | Encounter Summary ---
Author Organization [facility] Healthcare Address [address] [place] [address] Care Team Providers Care Dewaxer Name Role Phone Julio César Briseno MD Primary Care Provider [phone] Encounter Details Date Type Department Care Team (Late st Contact Info) Description 11/24/2018 Telephone [facility] Advanced Medicine Radiation Oncology [address] 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
--- OUTSIDE RECORDS SUMMARY | 2024-06-26 02:21 | XMS_ITS | Encounter Summary ---
Author Organization [facility] Address [address] [place] [address] Care Team Providers Care Manager Flight Name Role Phone Julio César Briseno MD Primary Care Provider [phone] Reason for Referral * MRI/CAT/PET Scan (Routine) - Closed Specialty Diagnoses / Procedures Referred By Evelyne bowman Referred To Contact Radiology Diagnoses Malignant neoplasm metastatic to liver (HCC) Neuroendocrine carcinoma (HCC) Procedures PET/CT Ga-68 Dotatate Skull to Thigh Bailee Bobby NP Phone: tel: fax: [address] [address] Referral ID Status Reason Start Date Expiration Date Visits Re quested Visits Authorized [id number] Closed 10/13/2018 04/23/2020 1 1 Reason for Visit * MRI/CAT/PET Scan (Routine) - Closed Specialty Diagnoses / Procedures Referred By Evelyne bowman Referred To Contact Radiology Diagnoses Malignant neoplasm metastatic to liver (HCC) Neuroendocrine carcinoma (HCC) Procedures PET/CT Ga-68 Dotatate Skull to Thigh Bailee Bobby NP Phone: tel: fax: [address] [address] Referral ID Status Reason Start Date Expiration Date Visits Re quested Visits Authorized [id number] Closed 10/13/2018 04/23/2020 1 1 Encounter Details Date Type Department Care Team (Late st Contact Info) Description 11/19/2018 2:13 PM CDT - 11/19/2018 11:59 PM CDT Hospital Encounter [facility] Radiology [facility] [address] [place] [address] Kelvin Mcmillan MD [address] [place] [address] Bailee Bobby NP [address] [place] [address] Malignant neoplasm metastatic to liver (CMS/HCC); Neuroendocrine [...] on file Legal Sex Female 2:41 PM POLICYHOLDER INFORMATION CLERK Gender Identity Not on file Sexual [...] capsuleIndicatio ns:supplement Take 1 tablet by mouth compressor station engineer chief before breakfast 07/04/2016 4 cholecalciferol (VITAMIN D-3) 5,000 unit tablet Take 15,000 Units by mouth daily. 9 CHOLESTYRAMINE, BULK, MISC 1 tablet by Not Applicable route 9 coenzyme U91-ilcfchi E 100-5 mg-unit capsuleIndicatio ns:supplement Take 1 tablet by mouth compressor station engineer chief before breakfast [address] (CYMBALTA) 30 [...] proximal left humerus. ?? Dictated by: Chidi iSmon M.D. The radiology attending physician has personally [...] obtained. ??The study was interpreted on the [employer] workstation. ?? Scanned area: skull vertex to [...] obtained. The study was interpreted on the [employer] workstation. Scanned area: skull vertex to the [...] signed by: Wili Durham M.D. Bailee Bobby POLICYHOLDER INFORMATION CLERK IMG PET PROCEDURES Final Result documented in [...] millicuries documented in this encounter Care Teams Manager Flight Relationship Specialty Start Date End Date Julio César Briseno MD PCP - General 10/01/16 documented as of this encounter
--- OUTSIDE RECORDS SUMMARY | 2024-06-26 02:21 | XMS_ITS | Encounter Summary ---
Author Organization [facility] Address [address] [place] [address] Phone Care Team Providers Care Retail Cashier Name Role Phone Julio César Briseno MD Primary Care Provider [phone] 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) Procedures IN OCTREOTIDE INJECTION, DEPOT Octreotide 28 Day Cycles - Carcinoid Eren Cr MD [address] [facility] [address] [place] [address] Phone: tel: fax: [address] [address] Phone: tel: fax: Referral ID Status Reason Start Date Expiration Date V isits Requested Visits Authorized [id number] Authorized 11/28/2017 02/05/2025 1 150 Encounter Details Date Type Department Care Team (Late st Contact Info) Description 03/24/2018 9:15 AM CDT Lab [facility] Oncology [address] 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 Gender Identity Not on file Sexual [...] abs 3.6 1.8 - 6.6 K/cumm [facility] Comment:Testing performed by : [facility], [address] [place] [phone] Lymphocyte abs 2.4 1.2 - 3.3 K/cumm JASON BLACK Comment:Testing performed by : [facility], [address] [place] [phone] Monocyte abs 0.6 0.2 - 1.2 K/cumm JASON BJ Comment:Testing performed by : [facility], [address] [place] [phone] Eosinophil abs 0.1 0.0 - 0.5 K/cumm JASON [facility] Comment:Testing performed by : [facility], [address] [place] [phone] Basophil abs 0.0 0.0 - 0.2 K/cumm JASON [facility] Comment:Testing performed by : [facility], [address] [place] [phone] Neutrophil pct 53.2 % [facility] Comment: Interpretive Data Percent cell count reference ranges are not reported, since discordance with absolute values may lead to misinterpretation of CBC data. Current Interpretive Data was last revised on 2017. Testing performed by: [facility], [address] [place] [phone] Lymphocyte pct 35.7 % J[facility]ON [facility] Comment: Interpretive Data Percent cell count reference ranges are not reported, since discordance with absolute values may lead to misinterpretation of CBC data. Current Interpretive Data was last revised on 2017. Testing performed by: [facility], [address] [place] [phone] Monocyte pct 9.4 % J[facility]ON [facility] Comment:Testing performed by : [facility], [address] [place] [phone] Eosinophil pct 1.1 % [facility] Comment:Testing performed by : [facility], [address] [place] [phone] Basophil pct 0.6 % [facility] Comment:Testing performed by : [facility], [address] [place] [phone] Blood specimen (specimen) 03/24/2018 9:05 AM CDT 03/24/2018 9:09 AM CDT N[facility]ative [facility] - 03/24/2018 9:15 AM CDT us Eren Cr MD LAB BLOOD ORDERABLES Final Re sult [facility] [place] [address] * (ABNORMAL) CBC with auto differential (03/24/2018 9:05 AM CDT) WBC 6.9 3.8 - 9.8 K/cumm CERNER BJ Comment:Testing performed by : [place] [address] Hgb 14.3 12.1 - 15.1 g/dL CERNER BJ Comment:Testing performed by : [place] [address] Hct 41.4 36.1 - 44.3 % C[facility]ER BJ Comment:Testing performed by : [place] [address] Plt 139(L) 140 - 440 K/cumm [facility] BJ Comment:Testing performed by : [place] [address] MPV 7.5 6.8 - 10.4 fL [facility] Comment:Testing performed by : [place] [address] RBC 4.92 3.90 - 5.00 M/cumm [facility] Comment:Testing performed by : [place] [address] MCV 84.1 80.0 - 97.6 fL [facility]J Comment:Testing performed by : [place] [address] MCH 29.1 26.7 - 33.7 pg [facility]J Comment:Testing performed by : [place] [address] MCHC 34.6 32.7 - 35.5 g/dL [facility] Comment:Testing performed by : [place] [address] RDW CV 13.5 11.8 - 14.6 % [facility] BJ Comment:Testing performed by : [place] [address] NRBC abs 0.01 0.00 - 0.01 K/cumm [facility] BJ Comment:Testing performed by : [place] [address] Blood specimen (specimen) 03/24/2018 9:05 AM CDT 03/24/2018 9:09 AM CDT Narrative JASON LEAVITT - 03/24/2018 9:15 AM CDT Eren Cr MD LAB BLOOD ORDERABLES Final Re sult Performing Organization Address City/[facility]/ZIP Co de Phone Number [facility] Department [place] [address] * Chromogranin A (03/24/2018 9:02 AM CDT) Chromogranin A 90 <93 ng/mL [facility] Comment: A reagent change was implemented on [...] performance characteristics determined by [facility] in a manner consistent with [...] malignant disease. Test Performed by: [facility] [place] [id number] [place] [address] Blood specimen (specimen) 03/24/2018 9:02 AM CDT 03/24/2018 10:16 AM CDT Narrative [facility] - 03/25/2018 11:25 AM CDT Eren Cr MD LAB BLOOD ORDERABLES Final Re sult Performing Organization Address City/[facility]/ZIP Co de Phone Number [facility] [place] [address] * (ABNORMAL) Comprehensive metabolic panel (03/24/2018 9:02 AM CDT) Sodium 142 135 - 145 mmol/L [facility] Potassium, pl 3.5 3.3 - 4.9 mmol/L [facility] Chloride 105 97 - 110 mmol/L [facility] CO2 30 22 - 32 mmol/L [facility] Anion gap 7 2 - 15 mmol/L [facility] BUN 13 8 - 25 mg/dL [facility] Creatinine 0.83 0.60 - 1.10 mg/dL [facility] Glucose 86 70 - 199 mg/dL [facility] [...] 1.2 mg/dL [facility] Protein, pl 6.8 6.5 - 8.5 g/dL [facility] Albumin 4.3 3.5 - 5.0 g/dL [facility] Alk phos 90 40 - 130 Units/L [facility] ALT 16 7 - 45 Units/L [facility] AST 23 10 - 45 Units/L [facility] Blood specimen (specimen) 03/24/2018 9:02 AM CDT 03/24/2018 9:36 AM CDT Narrative [facility] - 03/24/2018 10:05 AM CDT us Eren Cr MD LAB BLOOD ORDERABLES Final Re sult [facility] [place] [address] documented in this encounter Visit Diagnoses Diagnosis Malignant neoplasm metastatic to liver (HCC) Neuroendocrine carcinoma (HCC) Other malignant neoplasm of unspecified site documented in this encounter Orders Appointment Requests Count Last Ordered Date Fi rst Ordered Date ONCBCN LAB APPOINTMENT 1 03/24/2018 documented in this encounter Care Teams Retail Cashier Relationship Specialty Start Date End Date Julio César Briseno MD PCP - General 10/01/16 documented as of this encounter
--- OUTSIDE RECORDS SUMMARY | 2024-06-26 02:21 | XMS_ITS | Encounter Summary ---
Author Organization [facility] Address [address] [place] [address] Phone Care Team Providers Care Customer Loyalty Representative Name Role Phone Julio César Briseno MD Primary Care Provider Encounter Details Date Type Department Care Team (Late st Contact Info) Description 02/06/2018 Orders Only [facility] Oncology [address] [facility] Advanced Medicine 7th [place] [address] [place] [address] Eren Cr MD [address] [facility] [address] [address] [place] [address] Social History Tobacco Use Types Packs/Day Years Used Date Smoking Tobacco: Never Smokeless Tobacco: Never Alcohol Use Standard Drinks/Week Comments Yes 1 (1 standard drink = 0.6 oz pur e alcohol) Comments No Sex and Gender Information Value Date Recorded Sex Assigned at Not on file Legal Sex Female 2:41 PM TRANSPORTATION CONSULTANT Gender Identity Not on file Sexual Orientation Straight 02/19/2021 9: 29 AM CDT Occupation Industry Job Start Date Job End Date retired Not on file Not on file Not on file documented as of this encounter Plan of Treatment Not on file documented as of this encounter Visit Diagnoses Not on filedocumented in this encounter Care Teams Customer Loyalty Representative Relationship Specialty Start Date End Date Julio César Briseno MD PCP - General 10/01/16 documented as of this encounter
--- OUTSIDE RECORDS SUMMARY | 2024-06-26 02:21 | XMS_ITS | Encounter Summary ---
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 [address] [place] [address] Phone: tel: fax: [facility] [address] [address] Phone: tel: fax: Referral ID Status Reason Start Date Expiration Date V isits Requested Visits Authorized [id number] Authorized 11/28/2017 02/05/2025 1 150 Encounter Details Date Type Department Care Team (Late st Contact Info) Description 07/14/2018 10:00 AM LUMBER STACKER Infusion [facility] Oncology [address] [facility] Advanced Medicine 7th [place] [id number] 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); Neuroendocrine carcinoma (CMS/HCC) Social History Tobacco Use Types Packs/Day Years Used Date Smoking Tobacco: Never Smokeless Tobacco: Never Alcohol Use Standard Drinks/Week Comments Yes 1 (1 standard drink = 0.6 oz pur e alcohol) Comments No Sex and Gender Information Value Date Recorded Sex Assigned at Not on file Legal Sex Female 2:41 PM LUMBER STACKER Gender Identity Not on file Sexual Orientation Straight 02/19/2021 9: 29 AM CDT Occupation Industry Job Start Date Job End Date retired Not on file Not on file Not on file documented as of this encounter Last Filed Vital Signs Vital Sign Reading Time Taken Comments Blood Pressure 130/75 07/14/2018 10:25 AM LUMBER STACKER Pulse 79 07/14/2018 10:25 AM LUMBER STACKER Temperature 36.6 ??C (97.9 ??F) 07/14/2018 10:[address] Respiratory Rate 18 07/14/2018 10:25 AM LUMBER STACKER Oxygen Saturation 97% 07/14/2018 10:25 AM LUMBER STACKER Inhaled Oxygen Concentration - - Weight 83.7 kg (184 lb 8.4 oz) 07/14/2018 10:25 AM LUMBER STACKER Height - - Body Mass Index 33.21 01/01/2018 12:48 PM CDT documented in this encounter Nursing Notes * Misa Castellanos RN - 07/14/2018 10:00 AM CST Tolerated injection to right hip without adverse effect. Has return appointments. ER STACKER documented in this encounter Plan of Treatment [...] (HCC),Neuroendocrine carcinoma (HCC) Given 07/14/2018 10:34 AM LUMBER STACKER 30 mg Right Dorsogluteal/Butt ock documented in this encounter Orders Medications Ordered That Brett ht Not Have Been Administered Count Last Ordered Date First Ordered Date octreotide LAR (SandoSTATIN LAR) extended release intramuscular injection 30 mg 1 07/14/2018 Appointment Requests Count Last Ordered Date Fi rst Ordered Date ONCBCN INJECTION APPOINTMENT REQUEST 1 01/2019 documented in this encounter Care Teams Shank Inspector Relationship Specialty Start Date End Date Julio César Briseno MD PCP - General 10/01/16 documented as of this encounter
--- OUTSIDE RECORDS SUMMARY | 2024-06-26 02:22 | XMS_ITS | Encounter Summary ---
Author Organization [facility] Care Team Providers Care Tractor Trailer Operator Name Role Phone Unavailable Primary Care Provider Unavailabl e Encounter Details Date Type Department Care Team (Latest Contact Info) Description 01/13/2016 12:54 PM CDT - 01/13/2016 11:59 PM CDT Hospital Encounter [facility] Aníbal Alfonso MD [id number] [place] [address] Other malignant neuroendocrine tumors (HCC); Ovarian cyst Social History Tobacco Use Types Packs/Day Years Used Date Smoking Tobacco: Never Assessed Comments Unknown Sex and Gender Information Value Date Recorded Sex Assigned at Not on file Legal Sex Female 2:41 PM PRIZER HAND Gender Identity Not on file Sexual [...] agrees with it. ACC# ??Date Time ??Exam [id number] Jan 13, 2016 13:53:[address] Chest with contrast [id number] Jan 13, 2016 13:53:[address] Abd & Pelvis with cont ACC# ??Date Time ??Exam [id number] Jan 13, 2016 13:53:[address] Chest with contrast [id number] Jan 13, 2016 13:53:[address] Abd & Pelvis with cont EXAMINATION: [...] ANÍBAL KUHN M.D. on Jan ??2015 ??6:16P [id number] Procedure Note Provider, MD Levon - 11/01/2016 ANÍBAL KUHN M.D. ERNA SHAW M.D. FINAL REPORT The radiology attending physician has personally reviewed this study, and has reviewed and/or edited this written report and agrees with it. ACC# Date Time Exam [id number] Jan 13, 2016 13:53:[address] Chest with contrast [id number] Jan 13, 2016 13:53:[address] Abd & Pelvis with cont ACC# Date Time Exam [id number] Jan 13, 2016 13:53:[address] Chest with contrast [id number] Jan 13, 2016 13:53:[address] Abd & Pelvis with cont EXAMINATION: [...] KUHN M.D. on Jan 13 2016 6:16P [id number] us Historical Provider MD ALONZO CT PROCEDURES [...] agrees with it. ACC# ??Date Time ??Exam [id number] Jan 13, 2016 13:53:[address] Chest with contrast [id number] Jan 13, 2016 13:53:[address] Abd & Pelvis with cont ACC# ??Date Time ??Exam [id number] Jan 13, 2016 13:53:[address] Chest with contrast [id number] Jan 13, 2016 13:53:[address] Abd & Pelvis with cont EXAMINATION: [...] ANÍBAL KUHN M.D. on Jan ??2015 ??6:16P [id number] Procedure Note Provider, MD Levon - 11/01/2016 ANÍBAL KUHN M.D. ERNA SHAW M.D. FINAL REPORT The radiology attending physician has personally reviewed this study, and has reviewed and/or edited this written report and agrees with it. ACC# Date Time Exam [id number] Jan 13, 2016 13:53:[address] Chest with contrast [id number] Jan 13, 2016 13:53:[address] Abd & Pelvis with cont ACC# Date Time Exam [id number] Jan 13, 2016 13:53:[address] Chest with contrast [id number] Jan 13, 2016 13:53:[address] Abd & Pelvis with cont EXAMINATION: [...] KUHN M.D. on Jan 13 2016 6:16P [id number] us Historical Provider MD ALONZO CT PROCEDURES Final R esult documented in this encounter Visit Diagnoses Diagnosis Other malignant neuroendocrine tumors (HCC) Ovarian cyst Other and unspecified ovarian cyst documented in this encounter
--- OUTSIDE RECORDS SUMMARY | 2024-06-26 02:22 | XMS_ITS | Encounter Summary ---
Author Organization [facility] Address [address] [place] [address] Care Team Providers Care Replanting Machine Crewman Name Role Phone Julio César Briseno MD Primary Care Provider [phone] Encounter Details Date Type Department Care Team (Late st Contact Info) Description 10/08/2016 Orders Only [facility] Inter[facility] [phone] Eren Cr MD [address] [facility] [address] [place], [place] [id number] Social History Tobacco Use Types Packs/Day Years Used Date Smoking Tobacco: Never Assessed Comments Unknown Sex and Gender Information Value Date Recorded Sex Assigned at Not on file Legal Sex Female 2: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 Non-Smokers: ??0.1 - 5.0 ng/mL ? Smokers: ?0.1 - 6.5 ng/mL ?? This test was developed and its performance characteristics determined by the [facility] in a manner consistent with CLIA requirements. This test has not been cleared or approved by the U.S. Food and Drug Administration. Current interpretive data was last revised 2015. Blood specimen (specimen) 10/08/2016 12:35 PM CDT 10/08/2016 4:39 PM CDT us Eren rC MD LAB BLOOD ORDERABLES Final Re sult [facility] One [facility] Department [place] [address] documented in this encounter Visit Diagnoses Not on filedocumented in this encounter Care Teams Replanting Machine Crewman Relationship Specialty Start Date End Date Julio César Briseno MD PCP - General 10/01/16 documented as of this encounter
--- OUTSIDE RECORDS SUMMARY | 2024-06-26 02:22 | XMS_ITS | Encounter Summary ---
Author Organization [facility] Address [address] [place] [address] Phone Care Team Providers Care Baker Name Role Phone Julio César Briseno MD Primary Care Provider [phone] Encounter Details Date Type Department Care Team (Late st Contact Info) Description 12/25/2017 Orders Only [facility] Oncology [address] [place] [address] Advanced Medicine 7th [place] [address] [place] [address] Mayela Williamson RN Neuroendocrine carcinoma (CMS/HCC) (Primary Dx); Malignant neoplasm metastatic to liver (CMS/HCC) Social History Tobacco Use Types Packs/Day Years Used Date Smoking Tobacco: Former Comments Unknown Sex and Gender Information Value Date Recorded Sex Assigned at Not on file Legal Sex Female 2:41 PM CALCULATION REVIEWER Gender Identity Not on file Sexual Orientation Straight 02/19/2021 9: 29 AM CDT documented as of this encounter Plan of Treatment Not on file documented as of this encounter Results * (ABNORMAL) CBC with auto differential (04/21/2018 10:30 AM CDT) WBC 7.1 3.8 - 9.8 K/cumm [facility] Comment:Testing performed by : [facility], [address] [place] [id number] Hgb 14.5 12.1 - 15.1 g/dL CERIMNNIE BJ Comment:Testing performed by : [facility], [address] [place] [address] Hct 43.0 36.1 - 44.3 % CERMINNIE BJ Comment:Testing performed by : [facility], [address] [place] [address] Plt 144 140 - 440 K/cumm CERMINNIE BJ Comment:Testing performed by : [facility], [address] [place] [address] MPV 8.1 6.8 - 10.4 fL CERMINNIE BJ Comment:Testing performed by : [place] [address] RBC 5.06(H) 3.90 - 5.00 M/cumm CERMINNIE BLACK Comment:Testing performed by : [place] [address] MCV 85.0 80.0 - 97.6 fL JASON BJ Comment:Testing performed by : [facility], [address] [place] [address] MCH 28.7 26.7 - 33.7 pg CERMINNIE [facility] Comment:Testing performed by : [place] [address] MCHC 33.7 32.7 - 35.5 g/dL [facility]ON [facility] Comment:Testing performed by : [place] [address] RDW CV 13.5 11.8 - 14.6 % JASON BJ Comment:Testing performed by : [facility], [address] [place] [address] NRBC abs 0.02(H) 0.00 - 0.01 K/cumm [facility] Comment:Testing performed by : [place] [address] Blood specimen (specimen) 04/21/2018 10:30 AM CDT 04/21/2018 10:31 AM CDT Narrative JASON BLACK - 04/21/2018 10:34 AM CDT us Eren Cr MD LAB BLOOD ORDERABLES Final Re sult Performing Organization Address City/[facility]/ZIP Co de Phone Number JASON BLACK Alexnadria [facility] [place] [address] * (ABNORMAL) Chromogranin A (04/21/2018 10:29 AM CDT) Chromogranin A 112(H) <93 ng/mL [facility] [...] characteristics determined by [facility] in a manner consistent with CLIA [...] malignant disease. Test Performed by: [facility] - [address] [address] Blood specimen (specimen) 04/21/2018 10:29 AM CDT 04/21/2018 11:04 AM CDT Narrative JASON BLACK - 04/22/2018 2:37 PM CDT Eren Cr MD LAB BLOOD ORDERABLES Final Re sult JASON BLACK [place] [facility] [place] [address] * Comprehensive metabolic panel (04/21/2018 10:29 AM CDT) Sodium 139 135 - 145 mmol/L [facility] Potassium, pl 3.5 3.3 - 4.9 mmol/L [facility] Chloride 103 97 - 110 mmol/L [facility] CO2 27 22 - 32 mmol/L [facility] Anion gap 9 2 - 15 mmol/L [facility] BUN 19 8 - 25 mg/dL [facility] Creatinine 0.89 0.60 - 1.10 mg/dL [facility] Glucose 157 70 - 199 mg/dL [facility] [...] 2017. Calcium 10.1 8.5 - 10.3 mg/dL [facility] Bilirubin, total 0.9 0.1 - 1.2 mg/dL [facility] Protein, pl 6.6 6.5 - 8.5 g/dL [facility] Albumin 4.3 3.5 - 5.0 g/dL [facility] Alk phos 85 40 - 130 Units/L [facility] ALT 20 7 - 45 Units/L [facility] AST 25 10 - 45 Units/L [facility] Blood specimen (specimen) 04/21/2018 10:29 AM CDT 04/21/2018 10:42 AM CDT Narrative [facility] - 04/21/2018 11:17 AM CDT us Eren Cr MD LAB BLOOD ORDERABLES Final Re sult [facility] One [facility] Department [place] [address] documented in this encounter Visit Diagnoses Diagnosis [...] 04/07 documented in this encounter Care Teams Baker Relationship Specialty Start Date End Date Julio César Briseno MD PCP - General 10/01/16 documented as of this encounter
--- OUTSIDE RECORDS SUMMARY | 2024-06-26 02:22 | XMS_ITS | Encounter Summary ---
Author Organization [facility] Healthcare Address [address] [place] [address] Care Team Providers Care Lining Brusher Name Role Phone Julio César Briseno MD Primary Care Provider [phone] Encounter Details Date Type Department Care Team (Late st Contact Info) Description 10/08/2016 Orders Only [facility] [phone] Eren Cr MD [address] [facility] [address] [place], [place] [id number] Social History Tobacco Use Types Packs/Day Years Used Date Smoking Tobacco: Never Assessed Comments Unknown Sex and Gender Information Value Date Recorded Sex Assigned at Not on file Legal Sex Female 2:41 PM TRACK WATCHMAN Gender Identity Not on file Sexual [...] CDT) Chromogranin A 56 <93 ng/mL [facility] Comment: ADDITIONAL INFORMATION The testing method is a homogeneous time-resolved immunofluorescent assay. Analyte Specific Reagent: This test was developed and its performance characteristics determined by [facility]. It has not been cleared or approved by the U.S. Food and Drug Administration. ? Values obtained with different assay methods or kits may be different and cannot be used interchangeably. ? Test results cannot be interpreted as absolute evidence for the presence or absence of malignant disease. Test Performed by: [place] [address] Blood specimen (specimen) 10/08/2016 12:02 PM CDT 10/08/2016 2:36 PM CDT us Eren Cr MD LAB BLOOD ORDERABLES Final Re sult [facility] One [facility] Department [place] [address] documented in this encounter Visit Diagnoses Not on filedocumented in this encounter Care Teams Lining Brusher Relationship Specialty Start Date End Date Julio César Briseno MD PCP - General 10/01/16 documented as of this encounter
--- OUTSIDE RECORDS SUMMARY | 2024-06-26 02:22 | XMS_ITS | Encounter Summary ---
Author Organization [facility] Healthcare Address [address] [place] [address] Care Team Providers Care 1St Grade Teacher Name Role Phone Julio César Briseno MD Primary Care Provider Encounter Details Date Type Department Care Team (Latest Contact Info) Description 12/31/2016 11:51 AM CDT - 12/31/2016 11:59 PM CDT Hospital Encounter [facility] OP INTERIM [phone] Eren Wu MD [address] [place], [place] [id number] Discharge Disposition: Discharge to home or self care Social History Tobacco Use Types Packs/Day Years Used Date Smoking Tobacco: Former Comments Unknown Sex and Gender Information Value Date Recorded Sex Assigned at Not on file Legal Sex Female 2:41 PM VEHICLE AND EQUIPMENT CLEANER Gender Identity Not on file Sexual Orientation Straight 02/19/2021 9: 29 AM CDT documented as of this encounter Medications at Time of Discharge ascorbic acid, vitamin C, 500 mg capsuleIndicatio ns:supplement Take 1 tablet by mouth mirror fabrication supervisor before breakfast 07/04/2016 4 octreotide (SandoSTATIN) 50 [...] M.D. FINAL REPORT ACC# ??Date Time ??Exam [id number] Dec 31, 2016 12:35:[address] Abd ??and ??Pelvis with cont [id number] Dec 31, 2016 12:35:[address] Chest with contrast EXAMINATION: ?? Computed [...] GUZMAN M.D. on Dec 31 2016 ??1:08P [id number] GUZMAN M.D. FINAL REPORT Attending: ??BRYCE, ??EREN Requesting: ??BRYCE, ??EREN Requesting Fax: ?? Attending Fax: ?? Attending ID: ??[id number] Requesting ID: ??[id number] Report To 1 ID: ??[id number] ? Report To 1 Name: ??, ?? Report To 1 FAX: ?? NextGen Order #: ?? Procedure Note Miscellaneous, Not In File - 04/25/2017 DEIDRE GUZMAN M.D. FINAL REPORT ACC# Date Time Exam [id number] Dec 31, 2016 12:35:[address] Abd and Pelvis with cont [id number] Dec 31, 2016 12:35:[address] Chest with contrast EXAMINATION: Computed tomography [...] GUZMAN M.D. on Dec 31 2016 1:08P [id number] RAPTIS, M.D. FINAL REPORT Attending: EREN WU Requesting: EREN WU Requesting Fax: Attending Fax: Attending ID: [id number] Requesting ID: [id number] Report To 1 ID: [id number] Report To 1 Name: , Report To 1 FAX: NextGen Order #: Eren Wu MD IMG CT PROCEDURES Edited Resu lt - Final * CT Abdomen Pelvis W Contrast (12/31/2016 5:35 PM CDT) Anatomical Region Laterality Modality Body N/A Computed Tomogra phy 12/31/2016 5:35 PM CDT Narrative 12/31/2016 5:35 PM CDT DEIDRE GUZMAN M.D. FINAL REPORT ACC# ??Date Time ??Exam [id number] Dec 31, 2016 12:35:[address] Abd ??and ??Pelvis with cont [id number] Dec 31, 2016 12:35:[address] Chest with contrast EXAMINATION: ?? Computed [...] GUZMAN M.D. on Dec 31 2016 ??1:08P [id number] RAPTIS, M.D. FINAL REPORT Attending: ??BRYCE, ??EREN Requesting: ??BRYCE, ??EREN Requesting Fax: ?? Attending Fax: ?? Attending ID: ??[id number] Requesting ID: ??[id number] Report To 1 ID: ??[id number] ? Report To 1 Name: ??, ?? Report To 1 FAX: ?? NextGen Order #: ?? Procedure Note Miscellaneous, Not In File - 04/25/2017 DEIDRE GUZMAN M.D. FINAL REPORT [facility]# Date Time Exam [id number] Dec 31, 2016 12:35:[address] Abd and Pelvis with cont [id number] Dec 31, 2016 12:35:[address] Chest with contrast EXAMINATION: Computed tomography [...] GUZMAN M.D. on Dec 31 2016 1:08P [id number] A GUZMAN M.D. FINAL REPORT Attending: EREN WU Requesting: EREN WU Requesting Fax: Attending Fax: Attending ID: [id number] Requesting ID: [id number] Report To 1 ID: [id number] Report To 1 Name: , Report To 1 FAX: NextGen Order #: us Eren Wu MD IMG CT PROCEDURES Edited Resu lt - Final documented in this encounter Visit Diagnoses Not on filedocumented in this encounter Care Teams 1St Grade Teacher Relationship Specialty Start Date End Date Julio César Briseno MD PCP - General 10/01/16 documented as of this encounter
--- OUTSIDE RECORDS SUMMARY | 2024-06-26 02:22 | XMS_ITS | Encounter Summary ---
Author Organization [facility] Address [address] [place] [address] Phone Care Team Providers Care Hyperbaric Tech Name Role Phone Julio César Briseno MD Primary Care Provider Encounter Details Date Type Department Care Team (Late st Contact Info) Description 12/25/2017 Orders Only [facility] Oncology [address] [facility] Advanced Medicine 7th [place] [address] Eren Cr MD [address] [facility] [address] [place] [address] Malignant neoplasm metastatic to liver (CMS/HCC); Neuroendocrine carcinoma (CMS/HCC) Social History Tobacco Use Types Packs/Day Years Used Date Smoking Tobacco: Former Comments Unknown Sex and Gender Information Value Date Recorded Sex Assigned at Not on file Legal Sex Female 2:41 PM STRING TOP SEALER Gender Identity Not on file Sexual [...] 03/0812/30/2017 documented in this encounter Care Teams Hyperbaric Tech Relationship Specialty Start Date End Date Julio César Briseno MD PCP - General 10/01/16 documented as of this encounter
--- OUTSIDE RECORDS SUMMARY | 2024-06-26 02:22 | XMS_ITS | Encounter Summary ---
Author Organization [facility] Healthcare Address [address] [place] [address] Care Team Providers Care Silica Spray Mixer Name Role Phone Julio César Briseno MD Primary Care Provider Encounter Details Date Type Department Care Team (Latest Contact Info) Description 06/28/2017 11:37 AM WOOD SASH AND FRAME CARPENTER - 06/28/2017 11:59 PM [facility] Hospital Encounter [facility] OP INTERIM [phone] Jasbir Reeves MD [address] [facility] [phone] [place], [place] [id number] Discharge Disposition: Discharge to home or self care Social History Tobacco Use Types Packs/Day Years Used Date Smoking Tobacco: Former Comments Unknown Sex and Gender Information Value Date Recorded Sex Assigned at Not on file Legal Sex Female 2:41 PM WOOD SASH AND FRAME CARPENTER Gender Identity Not on file Sexual Orientation Straight 02/19/2021 9: 29 AM CDT documented as of this encounter Medications at Time of Discharge ascorbic acid, vitamin C, 500 mg capsuleIndicatio ns:supplement Take 1 tablet by mouth furnace reliner before breakfast 07/04/2016 4 octreotide (SandoSTATIN) 50 mcg/mL (1 mL) syringe every 30 (thirty) days 04/09/2016 2 documented as of this encounter Discharge Disposition Disposition Code Departure Means Destination Discharge to home or self care documented in this encounter Plan of Treatment Not on file documented as of this encounter Procedures Procedure Name Priority Date/Time Associated Diagnosis Comments CYTOLOGY Routine 06/28/2017 11:37 AM WOOD SASH AND FRAME CARPENTER CYTOLOGY 06/28/2017 12:00 AM WOOD SASH AND FRAME CARPENTER documented in this encounter Results * Cytology (06/28/2017 11:37 AM WOOD SASH AND FRAME CARPENTER) 06/28/2017 11:3 7 AM WOOD SASH AND FRAME CARPENTER 06/28/2017 5:06 PM WOOD SASH AND FRAME CARPENTER Narrative 07/11/2017 3:27 PM WOOD SASH AND FRAME CARPENTER [facility] [place] [address] CYTOPATHOLOGY REPORT FINAL Patient Name: LA CHUNG Address: [address] [place] [address] Service: Laboratory ??[place], [place] ??[id number] Location: [facility] Taken: 06/28/2017 Gender: F Received: 06/28/2017 : 1950 (Age: 66) Hospital #: [id number] Accessioned: 07/02/2017 ?? Patient Type: [facility] Ref Lab Reported: 07/11/2017 ? Physician(s): [...] Health Care as part of an ongoing quality improvement coordinator (rn) program and in compliance with federally mandated [...] Final Result * CYTOLOGY (06/28/2017 12:00 AM WOOD SASH AND FRAME CARPENTER) Narrative 06/28/2017 12:00 AM WOOD SASH AND FRAME CARPENTER Ordered by an unspecified provider. us Historical Provider LAB CYTOLOGY ORDERABLES F inal Result documented in this encounter Visit Diagnoses Not on filedocumented in this encounter Care Teams Silica Spray Mixer Relationship Specialty Start Date End Date Julio César Briseno MD PCP - General 10/01/16 documented as of this encounter
--- OUTSIDE RECORDS SUMMARY | 2024-06-26 02:22 | XMS_ITS | Encounter Summary ---
Author Organization [facility] Healthcare Address [address] [place] [address] Care Team Providers Care Talent Acquisition Associate Name Role Phone Julio César Briseno MD Primary Care Provider [phone] Encounter Details Date Type Department Care Team (Late st Contact Info) Description 09/10/2016 Orders Only [facility] Interim [phone] Eren Cr MD [address] [facility] [address] [place], [place] [id number] Social History Tobacco Use Types Packs/Day Years Used Date Smoking Tobacco: Never Assessed Comments Unknown Sex and Gender Information Value Date Recorded Sex Assigned at Not on file 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 OF DIAGNOSTIC IMAGING Gender Identity Not on file Sexual Orientation Straight 02/19/2021 9: 29 AM CDT documented as of this encounter Plan of Treatment Not on file documented as of this encounter Procedures Procedure Name Priority Date/Time Associated Diagnosis Comments MISCELLANEOUS TEST SENDOUT CHEMISTRY Routine Gen Lab 09/10/2016 8:19 AM DIRECTOR OF DIAGNOSTIC IMAGING documented in this encounter Results * Miscellaneous Test Sendout Chemistry (09/10/2016 8:19 AM DIRECTOR OF DIAGNOSTIC IMAGING) Test name Pancreastatin [facility] Result 1 Test Name: Pancreastatin Specimen Type: BLOOD Supplemental Comments: _ Result: 301 Units: pg/ml Reference Range:0- 88 This test was developed and its performance characteristics determined by the performing reference laboratory in a manner consistent with CLIA requirements. ??This test has not been cleared or approved by the U.S. Food and Drug Administration. [facility] Sendout reference lab Testing performed by: [facility] Blood specimen (specimen) 09/10/2016 8:19 AM DIRECTOR OF DIAGNOSTIC IMAGING 09/10/2016 8:40 AM DIRECTOR OF DIAGNOSTIC IMAGING us Eren Cr MD LAB BLOOD ORDERABLES Edited R esult - Final [facility] Department [place] [address] documented in this encounter Visit Diagnoses Not on filedocumented in this encounter Care Teams Talent Acquisition Associate Relationship Specialty Start Date End Date Julio César Briseno MD PCP - General 10/01/16 documented as of this encounter
--- OUTSIDE RECORDS SUMMARY | 2024-06-26 02:22 | XMS_ITS | Encounter Summary ---
Author Organization 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 Gender Identity Not on file Sexual [...] sult Performing Organization Address City/[facility] Co de Phone Number HISTORICAL RESULTS [...] Final Re sult Performing Organization Address [facility] de Phone Number HISTORICAL RESULTS * (ABNORMAL) [...] Final Re sult Performing Organization Address [facility] de Phone Number HISTORICAL RESULTS * Serum ferritin (11/04/2015 3:09 PM CDT) Ferritin 39 15 - 150 ng/ml HISTORICAL RESULTS Serum 11/04/2015 3:09 PM CDT Eren Cr MD LAB BLOOD ORDERABLES Final Re sult Performing Organization Address [facility] Co de Phone Number HISTORICAL RESULTS [...] absence of malignant disease. Test Performed by: [place] [address] Merchandise Handler: Immanuel Novak II, M.D., Ph.D. Serum 11/04/2015 3:09 PM CDT Result [facility] Eren Cr MD LAB BLOOD ORDERABLES Final Re sult Performing Organization Address [facility] de Phone Number HISTORICAL RESULTS * Serum 25-hydroxycholecalciferol (vitamin D) (11/04/2015 12:00 PM CDT) 25-OH Vit D 52 30 - 100 ng/ml HISTORICAL RESULTS Serum 11/04/2015 12:0 0 PM CDT Eren Cr MD LAB BLOOD ORDERABLES Final Re sult Performing Organization Address [facility] Co de Phone Number HISTORICAL RESULTS documented in this encounter Visit Diagnoses Diagnosis Other malignant neuroendocrine tumors (HCC) documented in this encounter
--- OUTSIDE RECORDS SUMMARY | 2024-06-26 02:22 | XMS_ITS | Encounter Summary ---
Author Organization [facility] Healthcare Address [address] [place] [address] Care Team Providers Care Spinning Operator Name Role Phone Julio César Briseno MD Primary Care Provider [phone] Encounter Details Date Type Department Care Team (Latest Contact Info) Description 10/01/2016 1:38 PM CDT - 10/01/2016 11:59 PM CDT Hospital Encounter [facility] OP INTERIM [phone] Eren Cr MD [address] [place], [place] [id number] Discharge Disposition: Discharge to home or self care Social History Tobacco Use Types Packs/Day Years Used Date Smoking Tobacco: Never Assessed Comments Unknown Sex and Gender Information Value Date Recorded Sex Assigned at Not on file Legal Sex Female 2:41 PM 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 FINAL REPORT ACC# ??Date Time ??Exam [id number] Oct 01, 2016 14:15:[id number] Chest with contrast [id number] Oct 01, 2016 14:15:[address] Abd ??and ??Pelvis with cont EXAMINATION: [...] RAYMOND M.D. on Oct 01 2016 ??2:41P [id number] Procedure Note Miscellaneous, Notinfile - 11/28/2016 KAYLIN RAYMOND M.D. FINAL REPORT ACC# Date Time Exam [id number] Oct 01, 2016 14:15:[id number] Chest with contrast [id number] Oct 01, 2016 14:15:[id number] Abd and Pelvis with cont EXAMINATION: [...] RAYMOND M.D. on Oct 01 2016 2:41P [id number] us Not In File Miscellaneous IMG CT PROCEDURES Mel l Result * CT Chest W Contrast (10/01/2016 7:15 PM CDT) Anatomical Region Laterality Modality Body N/A Computed Tomogra phy 10/01/2016 7:15 PM CDT Narrative 10/01/2016 7:15 PM CDT KAYLIN RAYMOND M.D. FINAL REPORT ACC# ??Date Time ??Exam [id number] Oct 01, 2016 14:15:[id number] Chest with contrast [id number] Oct 01, 2016 14:15:[address] Abd ??and ??Pelvis with cont EXAMINATION: [...] RAYMOND M.D. on Oct 01 2016 ??2:41P [id number] Procedure Note Miscellaneous, Notinfile / Provider, MD Levon - 11/28/2016 KAYLIN RAYMOND M.D. FINAL REPORT ACC# Date Time Exam [id number] Oct 01, 2016 14:15:[id number] Chest with contrast [id number] Oct 01, 2016 14:15:[id number] Abd and Pelvis with cont EXAMINATION: [...] pulmonary nodules which remain indeterminate. Requested By: rEen Cr M.D. Dictated By: KAYLIN RAYMOND M.D. on Oct 01 2016 2:41P This document has been electronically signed by: KAYLIN RAYMOND M.D. on Oct 01 2016 2:41P [id number] us Not In File Miscellaneous IMG CT PROCEDURES Mel l Result documented in this encounter Visit Diagnoses Not on filedocumented in this encounter Care Teams Spinning Operator Relationship Specialty Start Date End Date uJlio César Briseno MD PCP - General 10/01/16 documented as of this encounter
--- OUTSIDE RECORDS SUMMARY | 2024-06-26 02:22 | XMS_ITS | Encounter Summary ---
Author Organization [facility] Facility Care Team Providers Care Student Specialist Name Role Phone Unavailable Primary Care Provider Unavailabl e Encounter Details Date Type Department Care Team (Late st Contact Info) Description 01/27/2016 11:13 AM CDT - 01/27/2016 11:59 PM CDT Hospital Encounter [facility] Eren De Paz MD [address] [facility] [address] [place] [address] Other malignant neuroendocrine tumors (HCC) Social History Tobacco Use Types Packs/Day Years Used Date Smoking Tobacco: Never Assessed Comments Unknown Sex and Gender Information Value Date Recorded Sex Assigned at Not on file Legal Sex Female 2:41 PM WATCH INSPECTOR Gender Identity Not on file Sexual Orientation Straight 02/19/2021 9: 29 AM CDT documented as of this encounter Plan of Treatment Not on file documented as of this encounter Procedures Procedure Name Priority Date/Time Associated Diagnosis Comments BLOOD CELL COUNT Routine 09/10/2016 8:00 AM WATCH INSPECTOR SERUM CHROMOGRANIN A Routine 09/10/2016 7:55 AM WATCH INSPECTOR PLASMA COMPREHENSIVE METABOLIC PANEL Routine 09/10/2016 7:53 AM WATCH INSPECTOR PLASMA COMPREHENSIVE METABOLIC PANEL Routine 08/13/2016 7:35 AM WATCH INSPECTOR BLOOD CELL COUNT Routine 08/13/2016 7:31 AM WATCH INSPECTOR SERUM CHROMOGRANIN A Routine 08/13/2016 7:27 AM WATCH INSPECTOR SERUM CHROMOGRANIN A Routine 07/16/2016 2:49 PM WATCH INSPECTOR PLASMA COMPREHENSIVE METABOLIC PANEL Routine 07/16/2016 2:49 PM WATCH INSPECTOR BLOOD CELL COUNT Routine 07/16/2016 2:46 PM WATCH INSPECTOR SERUM CHROMOGRANIN A Routine 04/23/2016 2:57 PM [...] [CBC] panel, 7 CAM (09/10/2016 8:00 AM WATCH INSPECTOR) WBC 7.0 3.8 - 9.8 K/cumm CDR [...] RESULTS Blood specimen (specimen) 09/10/2016 8:00 AM WATCH INSPECTOR Eren Cr MD LAB BLOOD ORDERABLES Final Re sult CDR HISTORICAL RESULTS * Serum chromogranin A (09/10/2016 7:55 AM WATCH INSPECTOR) Chromogranin A 52 <93 ng/ml CDR H ISTORICAL RESULTS Comment: ADDITIONAL INFORMATION The testing method is a homogeneous time-resolved immunofluorescent assay. Analyte Specific Reagent: This test was developed and its performance characteristics determined by [facility]. It has not been cleared or approved by the U.S. Food and Drug Administration. ? Values obtained with different assay methods or kits may be different and cannot be used interchangeably. ? Test results cannot be interpreted as absolute evidence for the presence or absence of malignant disease. Test Performed by: [address] [id number] Serum 09/10/2016 7:55 AM WATCH INSPECTOR Eren Cr MD LAB BLOOD ORDERABLES Final [facility] Performing Organization Address [facility]/ZIP Co de Phone Number CDR HISTORICAL RESULTS * (ABNORMAL) Plasma comprehensive metabolic panel (09/10/2016 7:53 AM WATCH INSPECTOR) Sodium 140 135 - 145 mmol/L CDR [...] CDR HISTORICAL RESULTS Plasma 09/10/2016 7:53 AM WATCH INSPECTOR Eren Cr MD LAB BLOOD ORDERABLES Final Re sult CDR HISTORICAL RESULTS * Plasma comprehensive metabolic panel (08/13/2016 7:35 AM WATCH INSPECTOR) Sodium 139 135 - 145 mmol/L CDR [...] CDR HISTORICAL RESULTS Plasma 08/13/2016 7:35 AM WATCH INSPECTOR Eren Cr MD LAB BLOOD ORDERABLES Final Re sult CDR HISTORICAL RESULTS * (ABNORMAL) Blood cell count [CBC] panel, 7 CAM (08/13/2016 7:31 AM WATCH INSPECTOR) WBC 7.6 3.8 - 9.8 K/cumm CDR [...] RESULTS Blood specimen (specimen) 08/13/2016 7:31 AM WATCH INSPECTOR Eren Cr MD LAB BLOOD ORDERABLES Final Re sult Performing Organization Address [facility] de Phone Number CDR HISTORICAL RESULTS * Serum chromogranin A (08/13/2016 7:27 AM WATCH INSPECTOR) Pathologist [facility] Chromogranin A 54 <93 ng/ml CDR H ISTORICAL RESULTS Comment: ADDITIONAL INFORMATION The testing method is a homogeneous time-resolved immunofluorescent assay. Analyte Specific Reagent: This test was developed and its performance characteristics determined by [facility]. It has not been cleared or approved by the U.S. Food and Drug Administration. ? Values obtained with different assay methods or kits may be different and cannot be used interchangeably. ? Test results cannot be interpreted as absolute evidence for the presence or absence of malignant disease. Test Performed by: [place] [address] Aircraft Mechanic Armament: Immanuel Novak II, M.D., Ph.D. Serum 08/13/2016 7:27 AM WATCH INSPECTOR Eren Cr MD LAB BLOOD ORDERABLES Final Re sult Performing Organization Address [facility] de Phone Number CDR HISTORICAL RESULTS * (ABNORMAL) Plasma comprehensive metabolic panel (07/16/2016 2:49 PM WATCH INSPECTOR) Pathologist [facility] Sodium 139 135 [...] CDR HISTORICAL RESULTS Plasma 07/16/2016 2:49 PM WATCH INSPECTOR Eren Cr MD LAB BLOOD ORDERABLES Final Re sult Performing Organization Address [facility]/State/ZIP Co de Phone Number CDR HISTORICAL RESULTS * Serum chromogranin A (07/16/2016 2:49 PM WATCH INSPECTOR) Chromogranin A 76 <93 ng/ml CDR H ISTORICAL RESULTS Comment: ADDITIONAL INFORMATION The testing method is a homogeneous time-resolved immunofluorescent assay. Analyte Specific Reagent: This test was developed and its performance characteristics determined by [facility]. It has not been cleared or approved by the U.S. Food and Drug Administration. ? Values obtained with different assay methods or kits may be different and cannot be used interchangeably. ? Test results cannot be interpreted as absolute evidence for the presence or absence of malignant disease. Test Performed by: [address] [id number] Aircraft Mechanic Armament: Immanuel Novak II, M.D., Ph.D. Serum 07/16/2016 2:49 PM WATCH INSPECTOR Eren Cr MD LAB BLOOD ORDERABLES Final Re sult Performing Organization Address [facility]/ZIP Co de Phone Number CDR HISTORICAL RESULTS * (ABNORMAL) Blood cell count [CBC] panel, 7 CAM (07/16/2016 2:46 PM WATCH INSPECTOR) Pathologist [facility] WBC 9.3 3.8 [...] RESULTS Blood specimen (specimen) 07/16/2016 2:46 PM WATCH INSPECTOR Eren Cr MD LAB BLOOD ORDERABLES Final Re sult CDR HISTORICAL RESULTS * Serum chromogranin A (04/23/2016 2:57 PM CDT) Chromogranin A 54 <93 ng/ml CDR H ISTORICAL RESULTS Comment: ADDITIONAL INFORMATION The testing method is a homogeneous time-resolved immunofluorescent assay. Analyte Specific Reagent: This test was developed and its performance characteristics determined by [facility]. It has not been cleared or approved by the U.S. Food and Drug Administration. ? Values obtained with different assay methods or kits may be different and cannot be used interchangeably. ? Test results cannot be interpreted as absolute evidence for the presence or absence of malignant disease. Test Performed by: [place] [address] Aircraft Mechanic Armament: Immanuel Novak II, M.D., Ph.D. Serum 04/23/2016 [...] Final Re sult Performing Organization Address [facility] Co de Phone Number CDR HISTORICAL RESULTS [...] Final Re sult Performing Organization Address [facility] de Phone Number CDR HISTORICAL RESULTS * Serum 25-hydroxycholecalciferol (vitamin D) (04/23/2016 12:00 PM CDT) Pathologist [facility] 25-OH Vit D 33 30 - 100 ng/ml CDR HISTORICAL RESULTS Serum 04/23/2016 12:0 0 PM CDT Eren Cr MD LAB BLOOD ORDERABLES Final Re sult Performing Organization Address [facility] de Phone Number CDR HISTORICAL RESULTS * Serum chromogranin A (01/30/2016 12:40 PM CDT) Pathologist [facility] Chromogranin A 51 <93 ng/ml CDR H ISTORICAL RESULTS Comment: ADDITIONAL INFORMATION The testing method is a homogeneous time-resolved immunofluorescent assay. Analyte Specific Reagent: This test was developed and its performance characteristics determined by [facility]. It has not been cleared or approved by the U.S. Food and Drug Administration. ? Values obtained with different assay methods or kits may be different and cannot be used interchangeably. ? Test results cannot be interpreted as absolute evidence for the presence or absence of malignant disease. Test Performed by: [place] [address] Aircraft Mechanic Armament: Immanuel Novak II, M.D., Ph.D. Serum 01/30/2016 12:4 0 PM CDT Eren Cr MD LAB BLOOD ORDERABLES Final Re sult Performing Organization Address [facility] de Phone Number CDR HISTORICAL RESULTS [...]
--- OUTSIDE RECORDS SUMMARY | 2024-06-26 02:22 | XMS_ITS | Encounter Summary ---
Author Organization [facility] Facility Care Team Providers Care Jukebox Routeman Name Role Phone Unavailable Primary Care Provider Unavailabl e Encounter Details Date Type Department Care Team (Late st Contact Info) Description 05/16/2016 5:33 PM SAP DATA ARCHITECT - 05/16/2016 11:59 PM [facility] Hospital [facility] CLINCONJasbir Thomason MD [address] [phone] [place] [id number] Encounter for screening for malignant neoplasm of cervix; Disease of intestine Social History Tobacco Use Types Packs/Day Years Used Date Smoking Tobacco: Never Assessed Comments Unknown Sex and Gender Information Value Date Recorded Sex Assigned at Not on file Legal Sex Female 2:41 PM SAP DATA ARCHITECT Gender Identity Not on file Sexual [...]
--- OUTSIDE RECORDS SUMMARY | 2024-06-26 02:22 | XMS_ITS | Encounter Summary ---
Author Organization [facility] Healthcare Address [address] [place] [address] Care Team Providers Care Safety Coordinator Name Role Phone Julio César Briseno MD Primary Care Provider [phone] Encounter Details Date Type Department Care Team (Late st Contact Info) Description 12/31/2016 Orders Only [facility] Interim [phone] Eren Cr MD [address] [facility] [address] [place], [place] [id number] Social History Tobacco Use Types Packs/Day Years Used Date Smoking Tobacco: Former Comments Unknown Sex and Gender Information Value Date Recorded Sex Assigned at Not on file Legal Sex Female 2:41 PM CLARK DRIVER Gender Identity Not on file Sexual [...] 11:33 AM CDT) Test name Pancreastatin [facility] Result 1 Test Name: Pancreastatin Specimen Type: blood Result: 404 Units: pg/mL Reference Range: 0-88 [facility] Sendout reference lab Testing performed by: [facility] Blood specimen (specimen) 12/31/2016 11:33 AM CDT 12/31/2016 1:52 PM CDT us Eren Cr MD LAB BLOOD ORDERABLES Edited R esult - Final [facility] Department [place] [address] documented in this encounter Visit Diagnoses Not on filedocumented in this encounter Care Teams Safety Coordinator Relationship Specialty Start Date End Date Julio César Briseno MD PCP - General 10/01/16 documented as of this encounter
--- OUTSIDE RECORDS SUMMARY | 2024-06-26 02:22 | XMS_ITS | Encounter Summary ---
Author Organization [facility] Healthcare Address [address] [place] [address] Care Team Providers Care Dispensing Optician Name Role Phone Julio César Briseno MD Primary Care Provider [phone] Encounter Details Date Type Department Care Team (Late st Contact Info) Description 2016 Orders Only [facility] [phone] Eren Cr MD [address] [facility] [address] [place], [place] [id number] Social History Tobacco Use Types Packs/Day Years Used Date Smoking Tobacco: Never Assessed Comments Unknown Sex and Gender Information Value Date Recorded Sex Assigned at Not on file Legal Sex Female 2:41 PM POCKET STITCHER Gender Identity Not on file Sexual Orientation [...] CDT) Chromogranin A 54 <93 ng/mL [facility] Comment: ADDITIONAL INFORMATION The testing method is a homogeneous time-resolved immunofluorescent assay. Analyte Specific Reagent: This test was developed and its performance characteristics determined by [facility]. It has not been cleared or approved by the U.S. Food and Drug Administration. ? Values obtained with different assay methods or kits may be different and cannot be used interchangeably. ? Test results cannot be interpreted as absolute evidence for the presence or absence of malignant disease. Test Performed by: [place] [address] Blood specimen (specimen) 2016 8:40 AM CDT 2016 9:36 AM CDT Eren Cr MD LAB BLOOD ORDERABLES Final Re sult [facility] One [facility] [place] [address] documented in this encounter Visit Diagnoses Not on filedocumented in this encounter Care Teams Dispensing Optician Relationship Specialty Start Date End Date Julio César Briseno MD PCP - General 10/01/16 documented as of this encounter
--- OUTSIDE RECORDS SUMMARY | 2024-06-26 02:22 | XMS_ITS | Encounter Summary ---
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 Female 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 Gender Identity Not on file Sexual [...] auto differential (2016 8:44 AM CDT) Pathologist [facility] WBC 10.1(H) 3.8 - 9.8 K/cumm [facility] RBC 5.29(H) 3.90 - 5.00 M/cumm C[facility]ER [facility] Hgb 15.2(H) 12.1 - 15.1 g/dL [facility] Hct 45.1(H) 36.1 - 44.3 % [facility] Mean Cellular Volume - CAM 85.2 80.0 - 97.6 fL [facility] Mean Cellular Hemoglobin - CAM 28.6 26.7 - 33.7 pg [facility] Mean Cellular Hemoglobin Concentration - CAM 33.6 32.7 - 35.5 g/dL [facility] Rdw 13.3 11.8 - 14.6 % [facility] Plt 178 140 - 440 K/cumm [facility] Mean Platelet Volume - CAM 8.2 6.8 - 10.4 fL [facility] Neutrophil pct 52.1 38.7 - 74.5 % [facility] Lymphocyte pct 40.1 20.0 - 54.3 % [facility] Monos 6.3 4.3 - 13.5 % [facility] Eosinophil pct 0.7 0.0 - 6.0 % [facility] Basophil pct 0.8 0.0 - 3.0 % [facility] Neutrophil abs 5.2 1.8 - 6.6 K/cumm [facility] Lymphocyte abs 4.0(H) 1.2 - 3.3 K/cumm [facility] Monocyte abs 0.6 0.2 - 1.2 K/cumm [facility] Eosinophils, abs 0.1 0.0 - 0.5 K/cumm [facility] Basophil abs 0.1 0.0 - 0.2 K/cumm [facility] Blood specimen (specimen) 2016 8:44 AM CDT 2016 8:45 AM CDT us Eren Cr MD LAB BLOOD ORDERABLES Final Re sult [facility] One [facility] [place] [address] documented in this encounter Visit Diagnoses Not on filedocumented in this encounter Care Teams Waiter Waitress Relationship Specialty Start Date End Date Julio César Briseno MD PCP - General 10/01/16 documented as of this encounter
--- OUTSIDE RECORDS SUMMARY | 2024-06-26 02:22 | XMS_ITS | Encounter Summary ---
Author Organization [facility] Healthcare Address [address] [place] [address] Care Team Providers Care Dye Winch Operator Name Role Phone Unavailable Primary Care Provider Unavailabl e Encounter Details Date Type Department Care Team (Late st Contact Info) Description 05/16/2016 8:49 PM COPY DIRECTOR - 05/16/2016 11:59 PM COPY DIRECTOR Hospital Encounter [facility] Social History Tobacco Use Types Packs/Day Years Used Date Smoking Tobacco: Never Assessed Comments Unknown Sex and Gender Information Value Date Recorded Sex Assigned at Not on file Legal Sex Female 2:41 PM COPY DIRECTOR Gender Identity Not on file Sexual [...] HUMAN PAPILLOMARVIRUS RNA Routine 05/16/2016 2:16 AM COPY DIRECTOR documented in this encounter Results * Genital fluid human papillomarvirus RNA (05/16/2016 2:16 AM COPY DIRECTOR) Human papillomavirus RNA, High Risk E6/E7 NEGATIVE for types 16, 18, 31, 33, 35, 39, 45, 51, 52, 56, 58, 59, 66 and 68. NEGATIVE fortypes 16,18,31 ,33,35,3 9,45,51, 52,56,58 ,59,66an d68. CDR HISTORICAL RESULTS Comment:Test performed utili [employer] Gen-Probe Aptima assay. Genital 05/16/2016 2:16 AM COPY DIRECTOR Narrative CDR HISTORICAL RESULTS - 05/24/2016 8:50 AM COPY DIRECTOR [id number] us Historical Provider LAB BLOOD ORDERABLES Mel l Result CDR HISTORICAL RESULTS documented in this encounter Visit Diagnoses Not on filedocumented in this encounter
--- OUTSIDE RECORDS SUMMARY | 2024-06-26 02:22 | XMS_ITS | Encounter Summary ---
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 Analyte Specific Reagent: This test was developed and its performance characteristics determined by [facility]. It has not been cleared or approved by the U.S. Food and Drug Administration. ? Values obtained with different assay methods or kits may be different and cannot be used interchangeably. ? Test results cannot be interpreted as absolute evidence for the presence or absence of malignant disease. Test Performed by: [address] [address] Blood specimen (specimen) 12/31/2016 11:32 AM CDT 12/31/2016 1:30 PM CDT Eren Cr MD LAB BLOOD ORDERABLES Final Re sult [facility] One [facility] [place] [address] documented in this encounter Visit Diagnoses Not on filedocumented in this encounter Care Teams District Director Relationship Specialty Start Date End Date Julio César Briseno MD PCP - General 10/01/16 documented as of this encounter
--- OUTSIDE RECORDS SUMMARY | 2024-06-26 02:22 | XMS_ITS | Encounter Summary ---
Author Organization [facility] Address [address] [place] [address] Phone Care Team Providers Care Barn Boss Name Role Phone Julio César Briseno MD Primary Care Provider [phone] Encounter Details Date Type Department Care Team (Late st Contact Info) Description 12/25/2017 Orders Only [facility] Oncology [address] [place] [address] Advanced Medicine 7th [place] [address] [place] [address] Mayela Williamson, [place] Neuroendocrine carcinoma (CMS/HCC) (Primary Dx); Malignant neoplasm metastatic to liver (CMS/HCC) Social History Tobacco Use Types Packs/Day Years Used Date Smoking Tobacco: Former Comments Unknown Sex and Gender Information Value Date Recorded Sex Assigned at Not on file 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 Gender Identity Not on file Sexual Orientation Straight 02/19/2021 9: 29 AM CDT documented as of this encounter Plan of Treatment Not on file documented as of this encounter Results * (ABNORMAL) CBC with auto differential (03/24/2018 9:05 AM CDT) WBC 6.9 3.8 - 9.8 K/cumm [facility] Comment:Testing performed by : [facility], [address] [place] [phone] Hgb 14.3 12.1 - 15.1 g/dL [facility]ER [facility] Comment:Testing performed by : [facility], [address] [place] [address] Hct 41.4 36.1 - 44.3 % [facility] Comment:Testing performed by : [facility], [address] [place] [address] Plt 139(L) 140 - 440 K/cumm [facility] Comment:Testing performed by : [facility], [address] [place] [address] MPV 7.5 6.8 - 10.4 fL [facility] Comment:Testing performed by : [place] [address] RBC 4.92 3.90 - 5.00 M/cumm [facility]ERMINNIE [facility]J Comment:Testing performed by : [place] [address] MCV 84.1 80.0 - 97.6 fL [facility] Comment:Testing performed by : [facility], [address] [place] [address] MCH 29.1 26.7 - 33.7 pg [facility] Comment:Testing performed by : [place] [address] MCHC 34.6 32.7 - 35.5 g/dL [facility] Comment:Testing performed by : [place] [address] RDW CV 13.5 11.8 - 14.6 % [facility] Comment:Testing performed by : [facility], [address] [place] [address] NRBC abs 0.01 0.00 - 0.01 K/cumm [facility] Comment:Testing performed by : [place] [address] Blood specimen (specimen) 03/24/2018 9:05 AM CDT 03/24/2018 9:09 AM CDT Narrative J[facility]ON [facility] - 03/24/2018 9:15 AM CDT Eren Cr MD LAB BLOOD ORDERABLES Final Re sult [facility] [place] [address] * Chromogranin A (03/24/2018 9:02 AM CDT) Pathologist [facility] Chromogranin A 90 <93 ng/mL [facility] Comment: A reagent change was implemented on date 11/13/2017. Measured chromogranin A concentrations were on average 7% higher using the new reagent formulation. However, for individual specimens the variation may exceed 7%. Upon request, samples previously submitted within the last six months can be retested using the new reagent formulation. ADDITIONAL INFORMATION This test was developed and its performance characteristics determined by [facility] in a manner consistent with [...] disease. Test Performed by: [place] [address] Blood specimen (specimen) 03/24/2018 9:02 AM CDT 03/24/2018 10:16 AM CDT Narrative [facility] - 03/25/2018 11:25 AM CDT Eren Cr MD LAB BLOOD ORDERABLES Final Re sult [facility] [place] [address] * (ABNORMAL) Comprehensive metabolic panel (03/24/2018 9:02 AM CDT) [facility] Sodium 142 135 - 145 mmol/L [facility] Potassium, pl 3.5 3.3 - 4.9 mmol/L [facility] Chloride 105 97 - 110 mmol/L [facility] CO2 30 22 - 32 mmol/L [facility] Anion gap 7 2 - 15 mmol/L [facility] BUN 13 8 - 25 mg/dL [facility] Creatinine 0.83 0.60 - 1.10 mg/dL [facility] Glucose 86 70 - 199 mg/dL [facility] 2017. Calcium 10.4(H) 8.5 - 10.3 mg/dL [facility] Bilirubin, total 0.6 0.1 - 1.2 mg/dL [facility] Protein, pl 6.8 6.5 - 8.5 g/dL [facility] Albumin 4.3 3.5 - 5.0 g/dL [facility] Alk phos 90 40 - 130 Units/L [facility] ALT 16 7 - 45 Units/L [facility] AST 23 10 - 45 Units/L [facility] Blood specimen (specimen) 03/24/2018 9:02 AM CDT 03/24/2018 9:36 AM CDT Narrative [facility] - 03/24/2018 10:05 AM CDT us Eren Cr MD LAB BLOOD ORDERABLES Final Re sult [facility] [place] [address] * Chromogranin A (02/24/2018 9:15 AM CDT) Chromogranin A 92 <93 ng/mL [facility] Comment: A reagent change was implemented on date 11/13/2017. Measured chromogranin A concentrations were on average 7% higher using the new reagent formulation. However, for individual specimens the variation may exceed 7%. Upon request, samples previously submitted within the last six months can be retested using the new reagent formulation. ADDITIONAL INFORMATION This test was developed and its performance characteristics determined by [facility] in a manner consistent with [...] malignant disease. Test Performed by: [facility] [address] [place], [place] [id number] Blood specimen (specimen) 02/24/2018 9:15 AM CDT 02/24/2018 1:57 PM CDT Narrative [facility] - 02/25/2018 1:43 PM CDT us Eren Cr MD LAB BLOOD ORDERABLES Final Re sult [facility] Department [place] [address] * (ABNORMAL) Comprehensive metabolic panel (02/24/2018 9:15 AM CDT) Pathologist [facility] Sodium 141 135 - 145 mmol/L [facility] Potassium, pl 4.0 3.3 - 4.9 mmol/L [facility] Chloride 105 97 - 110 mmol/L [facility] CO2 26 22 - 32 mmol/L [facility] Anion gap 10 2 - 15 mmol/L [facility] BUN 20 8 - 25 mg/dL [facility] Creatinine 1.01 0.60 - 1.10 mg/dL [facility] Glucose 95 70 - 199 mg/dL [facility] 2017. Calcium 10.5(H) 8.5 - 10.3 mg/dL [facility] Bilirubin, total 0.5 0.1 - 1.2 mg/dL [facility] Protein, pl 7.1 6.5 - 8.5 g/dL [facility] Albumin 4.3 3.5 - 5.0 g/dL [facility] Alk phos 94 40 - 130 Units/L [facility] ALT 17 7 - 45 Units/L [facility] AST 19 10 - 45 Units/L [facility] Blood specimen (specimen) 02/24/2018 9:15 AM CDT 02/24/2018 10:18 AM CDT Narrative [facility] - 02/24/2018 10:46 AM CDT Eren Cr MD LAB BLOOD ORDERABLES Final Re sult [facility] Department of Laboratories [place], [place] [id number] * (ABNORMAL) CBC with auto differential (02/24/2018 9:11 AM CDT) WBC 6.5 3.8 - 9.8 K/cumm [facility] Comment:Testing performed by : [facility], [address] [place] [phone] Hgb 14.3 12.1 - 15.1 g/dL [facility] Comment:Testing performed by : [facility], [address] [place], [place] [phone] Hct 42.6 36.1 - 44.3 % [facility] Comment:Testing performed by : [facility], [address] [place] [address] Plt 156 140 - 440 K/cumm [facility] Comment:Testing performed by : [facility], [address] [place], [place] [phone] MPV 7.9 6.8 - 10.4 fL [facility] Comment:Testing performed by : [facility], [address] [place] [address] RBC 4.97 3.90 - 5.00 M/cumm [facility] Comment:Testing performed by : [facility], [address] [place] [address] MCV 85.7 80.0 - 97.6 fL [facility] Comment:Testing performed by : [facility], [address] [place] [address] MCH 28.8 26.7 - 33.7 pg [facility] Comment:Testing performed by : [facility], [address] [place], [place] [id number] MCHC 33.7 32.7 - 35.5 g/dL [facility] Comment:Testing performed by : [facility], [address] [place], [place] [phone] RDW CV 13.3 11.8 - 14.6 % [facility] Comment:Testing performed by : [place] [address] NRBC abs 0.02(H) 0.00 - 0.01 K/cumm [facility] Comment:Testing performed by : [facility], [address] [place], [place] [phone] Blood specimen (specimen) 02/24/2018 9:11 AM CDT 02/24/2018 9:15 AM CDT Narrative [facility] - 02/24/2018 9:20 AM CDT us Eren Cr MD LAB BLOOD ORDERABLES Final Re sult [facility] Department [place] [address] * CBC with auto differential (01/27/2018 9:18 AM CDT) WBC 5.6 3.8 - 9.8 K/cumm [facility] Comment:Testing performed by : [facility], [address] [place] [address] Hgb 13.6 12.1 - 15.1 g/dL [facility] Comment:Testing performed by : [facility], [address] [place] [address] Hct 40.2 36.1 - 44.3 % [facility] Comment:Testing performed by : [facility], [address] [place] [address] Plt 143 140 - 440 K/cumm [facility] Comment:Testing performed by : [place] [address] MPV 7.7 6.8 - 10.4 fL [facility] Comment:Testing performed by : [place] [address] RBC 4.71 3.90 - 5.00 M/cumm [facility] Comment:Testing performed by : [place] [address] MCV 85.4 80.0 - 97.6 fL [facility] Comment:Testing performed by : [place] [address] MCH 28.8 26.7 - 33.7 pg [facility] Comment:Testing performed by : [place] [phone] MCHC 33.7 32.7 - 35.5 g/dL [facility]ON [facility] Comment:Testing performed by : [address] RDW CV 13.9 11.8 - 14.6 % [facility] Comment:Testing performed by : [place] [phone] NRBC abs 0.00 0.00 - 0.01 K/cumm [facility] Comment:Testing performed by : [facility], [address] [facility] [phone] Blood specimen (specimen) 01/27/2018 9:18 AM CDT 01/27/2018 9:20 AM CDT Narrative GREGMINNIE BLACK - 01/27/2018 9:25 AM CDT Eren Cr MD LAB BLOOD ORDERABLES Final [facility] [place] [address] * Chromogranin A (01/27/2018 9:14 AM CDT) [...] developed and its performance characteristics determined by [facility] in a manner consistent with [...] malignant disease. Test Performed by: [facility] [address] [place] [address] Blood specimen (specimen) 01/27/2018 9:14 AM CDT 01/27/2018 3:21 PM CDT Dylan BLACK - 01/28/2018 1:59 PM CDT Eren Cr MD LAB BLOOD ORDERABLES Final Re sult [facility] [place] [address] * (ABNORMAL) Comprehensive metabolic panel (01/27/2018 9:14 AM CDT) Sodium 142 135 - 145 mmol/L [facility] Potassium, pl 4.6 3.3 - 4.9 mmol/L [facility] Chloride 106 97 - 110 mmol/L [facility] CO2 30 22 - 32 mmol/L [facility] Anion gap 6 2 - 15 mmol/L [facility] BUN 15 8 - 25 mg/dL [facility] Creatinine 0.87 0.60 - 1.10 mg/dL [facility] Glucose 133 70 - 199 mg/dL [facility] 2017. Calcium 10.4(H) 8.5 - 10.3 mg/dL [facility] Bilirubin, total 0.6 0.1 - 1.2 mg/dL [facility] Protein, pl 6.9 6.5 - 8.5 g/dL [facility] Albumin 4.0 3.5 - 5.0 g/dL [facility] Alk phos 89 40 - 130 Units/L [facility] ALT 16 7 - 45 Units/L [facility] AST 23 10 - 45 Units/L [facility] Blood specimen (specimen) 01/27/2018 9:14 AM CDT 01/27/2018 9:33 AM CDT Narrative [facility] - 01/27/2018 10:24 AM CDT Eren Cr MD LAB BLOOD ORDERABLES Final Re sult [facility] [place] [address] * Chromogranin A (12/30/2017 8:44 AM CDT) Chromogranin A 73 <93 ng/mL [facility] Comment: A reagent change was implemented on date 11/13/2017. Measured chromogranin A concentrations were on average 7% higher using the new reagent formulation. However, for individual specimens the variation may exceed 7%. Upon request, samples previously submitted within the last six months can be retested using the new reagent formulation. ADDITIONAL INFORMATION This test was developed and its performance characteristics determined by [facility] in a manner consistent with [...] malignant disease. Test Performed by: [facility] - [address] [address] Blood specimen (specimen) 12/30/2017 8:44 AM CDT 12/30/2017 11:47 AM CDT [facility]ative [facility] - 12/31/2017 12:11 PM CDT Eren Cr MD LAB BLOOD ORDERABLES Final Re sult [facility] [place] [address] * Comprehensive metabolic panel (12/30/2017 8:44 AM CDT) Sodium 141 135 - 145 mmol/L [facility] Potassium, pl 4.1 3.3 - 4.9 mmol/L [facility] CO2 28 22 - 32 mmol/L [facility] BUN 12 8 - 25 mg/dL [facility] Glucose 120 70 - 199 mg/dL [facility] 2017. Creatinine 0.79 0.60 - 1.10 mg/dL [facility] Calcium 10.1 8.5 - 10.3 mg/dL [facility] Chloride 106 97 - 110 mmol/L [facility] Albumin 4.1 3.5 - 5.0 g/dL [facility] AST 25 10 - 45 Units/L [facility] ALT 14 7 - 45 Units/L [facility] Alk phos 95 40 - 130 Units/L [facility] Bilirubin, total 0.5 0.1 - 1.2 mg/dL [facility] Protein, pl 6.9 6.5 - 8.5 g/dL [facility] Anion gap 7 2 - 15 mmol/L [facility] Blood specimen (specimen) 12/30/2017 8:44 AM CDT 12/30/2017 9:05 AM CDT Narrative [facility] - 12/30/2017 9:40 AM CDT us Eren Cr MD LAB BLOOD ORDERABLES Final Re sult [facility] [place] [address] * (ABNORMAL) CBC with auto differential (12/30/2017 8:37 AM CDT) WBC 6.2 3.8 - 9.8 K/cumm [facility] RBC 4.72 3.90 - 5.00 M/cumm [facility] Hgb 13.6 12.1 - 15.1 g/dL [facility] Hct 40.3 36.1 - 44.3 % [facility] MCV 85.5 80.0 - 97.6 fL [facility] MCH 28.9 26.7 - 33.7 pg [facility] MCHC 33.8 32.7 - 35.5 g/dL [facility] RDW CV 13.5 11.8 - 14.6 % [facility] Plt 152 140 - 440 K/cumm [facility] MPV 7.5 6.8 - 10.4 fL [facility] NRBC abs 0.03(H) 0.00 - 0.01 K/cumm [facility] Blood specimen (specimen) 12/30/2017 8:37 AM CDT 12/30/2017 8:41 AM CDT Narrative [facility] - 12/30/2017 8:45 AM CDT Eren Cr MD LAB BLOOD ORDERABLES Final Re sult [facility] [place] [address] documented in this encounter Visit Diagnoses Diagnosis [...] site documented in this encounter Care Teams Barn Boss Relationship Specialty Start Date End Date Julio César Briseno MD PCP - General 10/01/16 documented as of this encounter
--- OUTSIDE RECORDS SUMMARY | 2024-06-26 02:22 | XMS_ITS | Encounter Summary ---
Author Organization [facility] Healthcare Address [address] [place] [address] Care Team Providers Care Image Processing Engineer Name Role Phone Julio César Briseno MD Primary Care Provider Encounter Details Date Type Department Care Team (Latest Contact Info) Description 10/21/2017 7:03 AM CDT - 10/21/2017 11:59 PM CDT Hospital Encounter [facility] [phone] Eren Wu MD [address] [place], [place] [id number] Discharge Disposition: Discharge to home or self care Social History Tobacco Use Types Packs/Day Years Used Date Smoking Tobacco: Former Comments Unknown Sex and Gender Information Value Date Recorded Sex Assigned at Not on file 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 ACC# ??Date Time ??Exam [id number] Oct 21, 2017 07:53:[address] Chest with contrast [id number] Oct 21, 2017 07:53:[address] Abd & ??Pelvis with cont EXAMINATION: [...] Fax: ?? Attending Fax: ?? Attending ID: ??[id number] Requesting ID: ??[id number] Report To 1 ID: ??[id number] ? Report To 1 Name: ??, ?? Report To 1 FAX: ?? NextGen Order #: ?? Procedure Note Miscellaneous, Not In File - 10/21/2017 Chapito GARCIA M.D. FINAL REPORT The radiology attending physician has personally reviewed this study, and has reviewed and/or edited this written report and agrees with it. ACC# Date Time Exam [id number] Oct 21, 2017 07:53:[address] Chest with contrast [id number] Oct 21, 2017 07:53:[address] Abd & Pelvis with cont EXAMINATION: [...] WU Requesting Fax: Attending Fax: Attending ID: [id number] Requesting ID: [id number] Report To 1 ID: [id number] Report To 1 Name: , Report To [...] agrees with it. ACC# ??Date Time ??Exam [id number] Oct 21, 2017 07:53:[address] Chest with contrast [id number] Oct 21, 2017 07:53:[address] Abd & ??Pelvis with cont EXAMINATION: [...] ERIC M.D. on Oct 21 2017 12:05P [id number] GARCIA M.D. FINAL REPORT The radiology attending physician has personally reviewed this study, and has reviewed and/or edited this written report and agrees with it. Attending: ??BRYCE, ??EREN Requesting: ??BRYCE, ??EREN Requesting Fax: ?? Attending Fax: ?? Attending ID: ??[id number] Requesting ID: ??[id number] Report To 1 ID: ??[id number] ? Report To 1 Name: ??, ?? Report To 1 FAX: ?? NextGen Order #: ?? Procedure Note Miscellaneous, Not In File - 10/21/2017 Chapito GARCIA M.D. FINAL REPORT The radiology attending physician has personally reviewed this study, and has reviewed and/or edited this written report and agrees with it. ACC# Date Time Exam [id number] Oct 21, 2017 07:53:[address] Chest with contrast [id number] Oct 21, 2017 07:53:[address] Abd & Pelvis with cont EXAMINATION: [...] ERIC M.D. on Oct 21 2017 12:05P [id number] ERIC M.D. BETO CANTU M.D. FINAL REPORT The radiology attending physician has personally reviewed this study, and has reviewed and/or edited this written report and agrees with it. Attending: EREN WU Requesting: EREN WU Requesting Fax: Attending Fax: Attending ID: [id number] Requesting ID: [id number] Report To 1 ID: [id number] Report To 1 Name: , Report To 1 FAX: NextGen Order #: Eren Wu MD IMG CT PROCEDURES Final Resul t documented in this encounter Visit Diagnoses Not on filedocumented in this encounter Care Teams Image Processing Engineer Relationship Specialty Start Date End Date Julio César Briseno MD PCP - General 10/01/16 documented as of this encounter
--- OUTSIDE RECORDS SUMMARY | 2024-06-26 02:22 | XMS_ITS | Encounter Summary ---
Author Organization [facility] Healthcare Address [address] [place] [address] Care Team Providers Care Director Camp Name Role Phone Julio César Briseno MD Primary Care Provider [phone] Encounter Details Date Type Department Care Team (Late st Contact Info) Description 12/04/2016 Orders Only [facility] [phone] Eren Cr MD [address] [facility] [address] [place], [place] [id number] Social History Tobacco Use Types Packs/Day Years Used Date Smoking Tobacco: Never Assessed Comments Unknown Sex and Gender Information Value Date Recorded Sex Assigned at Not on file 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 Gender Identity Not on file [...] BJ BUN 19 8 - 25 mg/dL [facility] Glucose 122 70 - 199 mg/dL [facility] Creatinine 0.70 0.60 - 1.10 mg/dL [facility] Calcium 10.4(H) 8.5 - 10.3 mg/dL [facility] Chloride 104 97 - 110 mmol/L [facility] Comment:fixed result mapping Albumin 4.0 3.5 - 5.0 g/dL [facility] AST 24 10 - 45 Units/L [facility] ALT 20 7 - 45 Units/L [facility] Alk phos 91 40 - 130 Units/L [facility] Bilirubin, total 0.5 0.1 - 1.2 mg/dL [facility] Protein, pl 6.8 6.5 - 8.5 g/dL [facility] Anion gap 11 2 - 15 mmol/L [facility] Blood specimen (specimen) 12/04/2016 7:00 AM CDT 12/04/2016 7:37 AM CDT us Eren Cr MD LAB BLOOD ORDERABLES Final Re sult [facility] Department [place] [address] documented in this encounter Visit Diagnoses Not on filedocumented in this encounter Care Teams Director Camp Relationship Specialty Start Date End Date Julio César Briseno MD PCP - General 10/01/16 documented as of this encounter
--- OUTSIDE RECORDS SUMMARY | 2024-06-26 02:22 | XMS_ITS | Encounter Summary ---
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 Name Role Phone Julio César Briseno MD Primary Care Provider [phone] Encounter Details Date Type Department Care Team (Latest Contact Info) Description 01/21/2017 10:07 AM CDT - 12/30/2017 11:59 PM CDT Hospital Encounter [facility] OP INTERIM [phone] Eren Cr MD [address] [place], [place] [id number] Discharge Disposition: Discharge to home or self care Social History Tobacco Use Types Packs/Day Years Used Date Smoking Tobacco: Former Comments Unknown Sex and Gender Information Value Date Recorded Sex Assigned at Not on file Legal Sex Female 2:41 PM MEETING FACILITATOR Gender Identity Not on file Sexual Orientation Straight 02/19/2021 9: 29 AM CDT documented as of this encounter Medications at Time of Discharge ascorbic acid, vitamin C, 500 mg capsuleIndicatio ns:supplement Take 1 tablet by mouth 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 before 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 07/04/2016 4 fesoterodine ER (TOVIAZ) [...] DIFFERENTIAL Routine Gen Lab 09/12/2017 10:13 AM MEETING FACILITATOR CHROMOGRANIN A Routine Gen Lab 09/12/2017 10:12 AM MEETING FACILITATOR COMPREHENSIVE METABOLIC PANEL Routine Gen Lab 09/12/2017 10:12 AM MEETING FACILITATOR CHROMOGRANIN A Routine Gen Lab 08/15/2017 9:55 AM MEETING FACILITATOR COMPREHENSIVE METABOLIC PANEL Routine Gen Lab 08/15/2017 9:55 AM MEETING FACILITATOR CHROMOGRANIN A Routine Gen Lab 07/18/2017 9:40 AM MEETING FACILITATOR COMPREHENSIVE METABOLIC PANEL Routine Gen Lab 07/18/2017 9:39 AM MEETING FACILITATOR MORPHOLOGY EXAM Routine Gen Lab 07/18/2017 9:38 AM MEETING FACILITATOR CBC WITH AUTO DIFFERENTIAL Routine Gen Lab 07/18/2017 9:38 AM MEETING FACILITATOR COMPREHENSIVE METABOLIC PANEL Routine Gen Lab 06/20/2017 10:30 AM MEETING FACILITATOR MORPHOLOGY EXAM Routine Gen Lab 06/20/2017 9:57 AM MEETING FACILITATOR CBC WITH AUTO DIFFERENTIAL Routine Gen Lab 06/20/2017 9:57 AM MEETING FACILITATOR CHROMOGRANIN A Routine Gen Lab 06/20/2017 9:55 AM MEETING FACILITATOR COMPREHENSIVE METABOLIC PANEL Routine Gen Lab 05/23/2017 10:00 AM MEETING FACILITATOR CHROMOGRANIN A Routine Gen Lab 05/23/2017 9:55 AM MEETING FACILITATOR CBC WITH AUTO DIFFERENTIAL Routine Gen Lab 05/23/2017 9:54 AM MEETING FACILITATOR COMPREHENSIVE METABOLIC PANEL STAT 04/29/2017 10:35 AM [...] differential (12/03/2017 9:07 AM CDT) Pathologist [facility] WBC 5.9 3.8 - 9.8 K/cumm [facility] RBC 4.83 3.90 - 5.00 M/cumm [facility] Hgb 14.1 12.1 - 15.1 g/dL [facility] Hct 41.2 36.1 - 44.3 % [facility] Mean Cellular Volume - CAM 85.4 80.0 - 97.6 fL [facility] Mean Cellular Hemoglobin - CAM 29.2 26.7 - 33.7 pg [facility] Mean Cellular Hemoglobin Concentration - CAM 34.2 32.7 - 35.5 g/dL [facility] Rdw 13.0 11.8 - 14.6 % [facility] Plt 151 140 - 440 K/cumm [facility] Mean Platelet Volume - CAM 8.0 6.8 - 10.4 fL [facility] Neutrophil pct 63.9 38.7 - 74.5 % [facility] Lymphocyte pct 29.3 20.0 - 54.3 % [facility] Monos 5.0 4.3 - 13.5 % [facility] Eosinophil pct 1.4 0.0 - 6.0 % [facility] Basophil pct 0.4 0.0 - 3.0 % [facility] Neutrophil abs 3.8 1.8 - 6.6 K/cumm [facility] Lymphocyte abs 1.7 1.2 - 3.3 K/cumm [facility] Monocyte abs 0.3 0.2 - 1.2 K/cumm [facility] Eosinophils, abs 0.1 0.0 - 0.5 K/cumm [facility] Basophil abs 0.0 0.0 - 0.2 K/cumm [facility] NRBC 0.4(H) 0.0 - 0.2 % [facility] NRBC abs 0.03(H) 0.00 - 0.01 K/cumm [facility] Blood specimen (specimen) 12/03/2017 9:07 AM CDT 12/03/2017 9:08 AM CDT Narrative [facility] - 12/03/2017 9:18 AM CDT us Eren Cr MD LAB BLOOD ORDERABLES Final Re sult [facility] [place] [address] * (ABNORMAL) Chromogranin A (12/03/2017 8:00 AM CDT) Chromogranin A 94(H) <93 ng/mL [facility] Comment: Impaired renal or hepatic function or [...] Test Performed by: [facility] [address] [place] [address] Blood specimen (specimen) 12/03/2017 8:00 AM CDT 12/03/2017 10:14 AM CDT Narrative JASON [facility] - 12/04/2017 2:31 PM CDT us Eren Cr MD LAB BLOOD ORDERABLES Final Re sult [facility] [place] [address] * Comprehensive metabolic panel (12/03/2017 8:00 AM CDT) Sodium 142 135 - 145 mmol/L [facility] Potassium, pl 3.7 3.3 - 4.9 mmol/L [facility] CO2 28 22 - 32 mmol/L [facility] BUN 17 8 - 25 mg/dL [facility] Glucose 127 70 - 199 mg/dL [facility] Comment: Interpretive Data Fasting glucose >/= 126 [...] 2017. Creatinine 0.81 0.60 - 1.10 mg/dL [facility] Calcium 10.1 8.5 - 10.3 mg/dL [facility] Chloride 108 97 - 110 mmol/L [facility] Albumin 4.1 3.5 - 5.0 g/dL [facility] AST 24 10 - 45 Units/L [facility] ALT 17 7 - 45 Units/L [facility] Alk phos 92 40 - 130 Units/L [facility] Bilirubin, total 0.8 0.1 - 1.2 mg/dL [facility] Protein, pl 6.8 6.5 - 8.5 g/dL [facility] Anion gap 6 2 - 15 mmol/L [facility] Blood specimen (specimen) 12/03/2017 8:00 AM CDT 12/03/2017 9:20 AM CDT Narrative [facility] - 12/03/2017 9:54 AM CDT us Eren Cr MD LAB BLOOD ORDERABLES Final Re sult [facility] [place] [address] * (ABNORMAL) CBC with auto differential (11/04/2017 7:24 AM CDT) WBC 7.2 3.8 - 9.8 K/cumm [facility] RBC 5.00 3.90 - 5.00 M/cumm [facility] Hgb 14.6 12.1 - 15.1 g/dL [facility] Hct 43.1 36.1 - 44.3 % [facility] Mean Cellular Volume - CAM 86.2 80.0 - 97.6 fL [facility] Mean Cellular Hemoglobin - CAM 29.2 26.7 - 33.7 pg [facility] Mean Cellular Hemoglobin Concentration - CAM 33.8 32.7 - 35.5 g/dL [facility] Rdw 13.4 11.8 - 14.6 % [facility] Plt 138(L) 140 - 440 K/cumm [facility] Mean Platelet Volume - CAM 8.1 6.8 - 10.4 fL [facility] Neutrophil pct 54.4 38.7 - 74.5 % [facility] Lymphocyte pct 35.2 20.0 - 54.3 % [facility] Monos 7.9 4.3 - 13.5 % [facility] Eosinophil pct 1.7 0.0 - 6.0 % [facility] Basophil pct 0.8 0.0 - 3.0 % [facility] Neutrophil abs 3.9 1.8 - 6.6 K/cumm [facility] Lymphocyte abs 2.5 1.2 - 3.3 K/cumm [facility] Monocyte abs 0.6 0.2 - 1.2 K/cumm [facility] Eosinophils, abs 0.1 0.0 - 0.5 K/cumm [facility] Basophil abs 0.1 0.0 - 0.2 K/cumm [facility] NRBC 0.1 0.0 - 0.2 % [facility] NRBC abs 0.01 0.00 - 0.01 K/cumm [facility] Blood specimen (specimen) 11/04/2017 7:24 AM CDT 11/04/2017 7:28 AM CDT Narrative [facility] - 11/04/2017 7:35 AM CDT Eren Cr MD LAB BLOOD ORDERABLES Final Re sult [facility] [place] [address] * Chromogranin A (11/04/2017 7:20 AM CDT) Pathologist [facility] Chromogranin A 49 <93 ng/mL [facility] Comment: ADDITIONAL INFORMATION The testing method is a homogeneous time-resolved immunofluorescent assay. Analyte Specific Reagent: This test was developed and its performance characteristics determined by [facility]. It has not been cleared or approved by the U.S. Food and Drug Administration. ? Values obtained with different assay methods or kits may be different and cannot be used interchangeably. ? Test results cannot be interpreted as absolute evidence for the presence or absence of malignant disease. Test Performed by: [facility] [address] [place] [address] Blood specimen (specimen) 11/04/2017 7:20 AM CDT 11/04/2017 8:19 AM CDT Narrative JASON [facility] - 2017 2:07 PM CDT Eren Cr MD LAB BLOOD ORDERABLES Final Re sult [facility] [place] [address] * (ABNORMAL) Comprehensive metabolic panel (11/04/2017 7:20 AM CDT) Sodium 142 135 - 145 mmol/L [facility] Potassium, pl 4.5 3.3 - 4.9 mmol/L [facility] CO2 29 22 - 32 mmol/L [facility] BUN 14 8 - 25 mg/dL [facility] Glucose 107 70 - 199 mg/dL [facility] Comment: Interpretive Data Fasting glucose >/= 126 [...] 2017. Creatinine 0.78 0.60 - 1.10 mg/dL [facility] Calcium 10.4(H) 8.5 - 10.3 mg/dL [facility] Chloride 108 97 - 110 mmol/L [facility] Albumin 4.1 3.5 - 5.0 g/dL [facility] AST 24 10 - 45 Units/L [facility] ALT 18 7 - 45 Units/L [facility] Alk phos 94 40 - 130 Units/L [facility] Bilirubin, total 0.6 0.1 - 1.2 mg/dL [facility] Protein, pl 6.6 6.5 - 8.5 g/dL [facility] Anion gap 5 2 - 15 mmol/L [facility] Blood specimen (specimen) 11/04/2017 7:20 AM CDT 11/04/2017 7:41 AM CDT Narrative [facility] - 11/04/2017 8:08 AM CDT us Eren Cr MD LAB BLOOD ORDERABLES Final Re sult [facility] [place] [address] * (ABNORMAL) CBC with auto differential (10/07/2017 11:03 AM CDT) WBC 7.0 3.8 - 9.8 K/cumm [facility] RBC 4.87 3.90 - 5.00 M/cumm [facility] Hgb 14.3 12.1 - 15.1 g/dL [facility] Hct 41.7 36.1 - 44.3 % [facility] Mean Cellular Volume - CAM 85.6 80.0 - 97.6 fL [facility] Mean Cellular Hemoglobin - CAM 29.3 26.7 - 33.7 pg [facility] Mean Cellular Hemoglobin Concentration - CAM 34.2 32.7 - 35.5 g/dL [facility] Rdw 13.0 11.8 - 14.6 % [facility] Plt 139(L) 140 - 440 K/cumm [facility] Mean Platelet Volume - CAM 8.2 6.8 - 10.4 fL [facility] Neutrophil pct 58.2 38.7 - 74.5 % [facility] Lymphocyte pct 32.0 20.0 - 54.3 % [facility] Monos 7.5 4.3 - 13.5 % [facility] Eosinophil pct 1.7 0.0 - 6.0 % [facility] Basophil pct 0.6 0.0 - 3.0 % [facility] Neutrophil abs 4.1 1.8 - 6.6 K/cumm [facility] Lymphocyte abs 2.3 1.2 - 3.3 K/cumm [facility] Monocyte abs 0.5 0.2 - 1.2 K/cumm [facility] Eosinophils, abs 0.1 0.0 - 0.5 K/cumm [facility] Basophil abs 0.0 0.0 - 0.2 K/cumm [facility] NRBC 0.0 0.0 - 0.2 % [facility] NRBC abs 0.00 0.00 - 0.01 K/cumm [facility] Blood specimen (specimen) 10/07/2017 11:03 AM CDT 10/07/2017 11:04 AM CDT Narrative [facility] - 10/07/2017 11:07 AM CDT Eren Cr MD LAB BLOOD ORDERABLES Final Re sult Performing Organization Address [facility] Co de Phone Number [facility] [place] [address] * Chromogranin A (10/07/2017 11:00 AM CDT) Pathologist [facility] Chromogranin A 72 <93 ng/mL [facility] Comment: ADDITIONAL INFORMATION The testing method is a homogeneous time-resolved immunofluorescent assay. Analyte Specific Reagent: This test was developed and its performance characteristics determined by [facility]. It has not been cleared or approved by the U.S. Food and Drug Administration. ? Values obtained with different assay methods or kits may be different and cannot be used interchangeably. ? Test results cannot be interpreted as absolute evidence for the presence or absence of malignant disease. Test Performed by: [facility] [place] [id number] [place] [address] Blood specimen (specimen) 10/07/2017 11:00 AM CDT 10/07/2017 11:18 AM CDT Narrative [facility] - 10/08/2017 12:34 PM CDT Eren Cr MD LAB BLOOD ORDERABLES Final Re sult [facility] [place] [address] * (ABNORMAL) Vitamin D 25 hydroxy (10/07/2017 11:00 AM CDT) Pathologist [facility] Vitamin D 25-OH 28(L) 30 - 80 ng/mL [facility] Blood specimen (specimen) 10/07/2017 11:00 AM CDT 10/07/2017 11:16 AM CDT Narrative [facility] - 10/07/2017 12:04 PM CDT Eren Cr MD LAB BLOOD ORDERABLES Final Re sult Performing Organization Address [facility] Co de Phone Number [facility] [place] [address] * Comprehensive metabolic panel (10/07/2017 11:00 AM CDT) [facility] Sodium 142 135 - 145 mmol/L [facility] Potassium, pl 4.0 3.3 - 4.9 mmol/L [facility] CO2 27 22 - 32 mmol/L [facility] BUN 16 8 - 25 mg/dL [facility] Glucose 100 70 - 199 mg/dL [facility] Comment: Interpretive Data Fasting glucose >/= 126 [...] 2017. Creatinine 0.83 0.60 - 1.10 mg/dL [facility] Calcium 10.3 8.5 - 10.3 mg/dL [facility] Chloride 106 97 - 110 mmol/L [facility] Albumin 4.1 3.5 - 5.0 g/dL [facility] AST 25 10 - 45 Units/L [facility] ALT 14 7 - 45 Units/L [facility] Alk phos 90 40 - 130 Units/L [facility] Bilirubin, total 0.6 0.1 - 1.2 mg/dL [facility] Protein, pl 6.8 6.5 - 8.5 g/dL [facility] Anion gap 9 2 - 15 mmol/L [facility] Blood specimen (specimen) 10/07/2017 11:00 AM CDT 10/07/2017 11:16 AM CDT Narrative [facility] - 10/07/2017 11:58 AM CDT us Eren Cr MD LAB BLOOD ORDERABLES Final Re sult [facility] [place] [address] * (ABNORMAL) CBC with auto differential (09/12/2017 10:13 AM MEETING FACILITATOR) WBC 6.1 3.8 - 9.8 K/cumm [facility] RBC 4.85 3.90 - 5.00 M/cumm [facility] Hgb 14.0 12.1 - 15.1 g/dL [facility] Hct 42.0 36.1 - 44.3 % [facility] Mean Cellular Volume - CAM 86.5 80.0 - 97.6 fL [facility] Mean Cellular Hemoglobin - CAM 28.9 26.7 - 33.7 pg [facility] Mean Cellular Hemoglobin Concentration - CAM 33.4 32.7 - 35.5 g/dL [facility] Rdw 13.5 11.8 - 14.6 % [facility] Plt 136(L) 140 - 440 K/cumm [facility] Mean Platelet Volume - CAM 8.1 6.8 - 10.4 fL [facility] Neutrophil pct 55.7 38.7 - 74.5 % [facility] Lymphocyte pct 31.8 20.0 - 54.3 % [facility] Monos 9.9 4.3 - 13.5 % [facility] Eosinophil pct 2.0 0.0 - 6.0 % [facility] Basophil pct 0.6 0.0 - 3.0 % [facility] Neutrophil abs 3.4 1.8 - 6.6 K/cumm [facility] Lymphocyte abs 1.9 1.2 - 3.3 K/cumm [facility] Monocyte abs 0.6 0.2 - 1.2 K/cumm [facility] Eosinophils, abs 0.1 0.0 - 0.5 K/cumm [facility] Basophil abs 0.0 0.0 - 0.2 K/cumm [facility] NRBC 0.1 0.0 - 0.2 % [facility] NRBC abs 0.00 0.00 - 0.01 K/cumm [facility] Blood specimen (specimen) 09/12/2017 10:13 AM MEETING FACILITATOR 09/12/2017 10:13 AM MEETING FACILITATOR Narrative [facility] - 09/12/2017 10:16 AM MEETING FACILITATOR Eren Cr MD LAB BLOOD ORDERABLES Final Re sult [facility] [place] [address] * Chromogranin A (09/12/2017 10:12 AM MEETING FACILITATOR) Pathologist [facility] Chromogranin A 72 <93 ng/mL [facility] Comment: ADDITIONAL INFORMATION The testing method is a homogeneous time-resolved immunofluorescent assay. Analyte Specific Reagent: This test was developed and its performance characteristics determined by [facility]. It has not been cleared or approved by the U.S. Food and Drug Administration. ? Values obtained with different assay methods or kits may be different and cannot be used interchangeably. ? Test results cannot be interpreted as absolute evidence for the presence or absence of malignant disease. Test Performed by: [facility] [address] [place] [address] Blood specimen (specimen) 09/12/2017 10:12 AM MEETING FACILITATOR 09/12/2017 11:53 AM MEETING FACILITATOR Narrative [facility] - 09/13/2017 12:47 PM MEETING FACILITATOR us Eren Cr MD LAB BLOOD ORDERABLES Final Re sult [facility] [place] [address] * Comprehensive metabolic panel (09/12/2017 10:12 AM MEETING FACILITATOR) Sodium 143 135 - 145 mmol/L [facility] Potassium, pl 3.6 3.3 - 4.9 mmol/L [facility] CO2 28 22 - 32 mmol/L [facility] BUN 11 8 - 25 mg/dL [facility] Glucose 103 70 - 199 mg/dL [facility] Comment: Interpretive Data Fasting glucose >/= 126 [...] 2017. Creatinine 0.74 0.60 - 1.10 mg/dL [facility] Calcium 10.0 8.5 - 10.3 mg/dL [facility] Chloride 106 97 - 110 mmol/L [facility] Albumin 4.3 3.5 - 5.0 g/dL [facility] AST 34 10 - 45 Units/L [facility] ALT 23 7 - 45 Units/L [facility] Alk phos 88 40 - 130 Units/L [facility] Bilirubin, total 0.9 0.1 - 1.2 mg/dL [facility] Protein, pl 6.7 6.5 - 8.5 g/dL [facility] Anion gap 9 2 - 15 mmol/L [facility] Blood specimen (specimen) 09/12/2017 10:12 AM MEETING FACILITATOR 09/12/2017 10:34 AM MEETING FACILITATOR Narrative [facility] - 09/12/2017 11:08 AM MEETING FACILITATOR Eren Cr MD LAB BLOOD ORDERABLES Final Re sult Performing Organization Address [facility] Co de Phone Number [facility] [place] [address] * Chromogranin A (08/15/2017 9:55 AM MEETING FACILITATOR) Pathologist [facility] Chromogranin A 62 <93 ng/mL [facility] Comment: ADDITIONAL INFORMATION The testing method is a homogeneous time-resolved immunofluorescent assay. Analyte Specific Reagent: This test was developed and its performance characteristics determined by [facility]. It has not been cleared or approved by the U.S. Food and Drug Administration. ? Values obtained with different assay methods or kits may be different and cannot be used interchangeably. ? Test results cannot be interpreted as absolute evidence for the presence or absence of malignant disease. Test Performed by: [place] [id number] [place] [address] Blood specimen (specimen) 08/15/2017 9:55 AM MEETING FACILITATOR 08/15/2017 2:09 PM MEETING FACILITATOR [facility] - 08/16/2017 3:45 PM MEETING FACILITATOR Eren Cr MD LAB BLOOD ORDERABLES Final Re sult Performing Organization Address [facility] Co de Phone Number [facility] [place] [address] * Comprehensive metabolic panel (08/15/2017 9:55 AM MEETING FACILITATOR) Pathologist [facility] Sodium 141 135 - 145 mmol/L [facility] Potassium, pl 4.1 3.3 - 4.9 mmol/L [facility] CO2 30 22 - 32 mmol/L [facility] BUN 13 8 - 25 mg/dL [facility] Glucose 110 70 - 199 mg/dL [facility] Comment: Interpretive Data Fasting glucose >/= 126 [...] 2017. Creatinine 0.80 0.60 - 1.10 mg/dL [facility] Calcium 10.2 8.5 - 10.3 mg/dL [facility] Chloride 105 97 - 110 mmol/L [facility] Albumin 4.2 3.5 - 5.0 g/dL [facility] AST 20 10 - 45 Units/L [facility] ALT 20 7 - 45 Units/L [facility] Alk phos 98 40 - 130 Units/L [facility] Bilirubin, total 0.8 0.1 - 1.2 mg/dL [facility] Protein, pl 7.0 6.5 - 8.5 g/dL [facility] Anion gap 6 2 - 15 mmol/L [facility] Blood specimen (specimen) 08/15/2017 9:55 AM MEETING FACILITATOR 08/15/2017 10:22 AM MEETING FACILITATOR Narrative [facility] - 08/15/2017 10:50 AM [facility] us Eren Cr MD LAB BLOOD ORDERABLES Final Re sult [facility] [place] [address] * Chromogranin A (07/18/2017 9:40 AM MEETING FACILITATOR) Chromogranin A 68 <93 ng/mL [facility] Comment: ADDITIONAL INFORMATION The testing method is a homogeneous time-resolved immunofluorescent assay. Analyte Specific Reagent: This test was developed and its performance characteristics determined by [facility]. It has not been cleared or approved by the U.S. Food and Drug Administration. ? Values obtained with different assay methods or kits may be different and cannot be used interchangeably. ? Test results cannot be interpreted as absolute evidence for the presence or absence of malignant disease. Test Performed by: [facility] [address] [place] [address] Blood specimen (specimen) 07/18/2017 9:40 AM MEETING FACILITATOR 07/18/2017 10:12 AM MEETING FACILITATOR Narrative [facility] - 07/22/2017 11:49 AM MEETING FACILITATOR Erne Cr MD LAB BLOOD ORDERABLES Final Re sult [facility] [place] [address] * Comprehensive metabolic panel (07/18/2017 9:39 AM MEETING FACILITATOR) Sodium 138 135 - 145 mmol/L [facility] Potassium, pl 4.2 3.3 - 4.9 mmol/L [facility] CO2 28 22 - 32 mmol/L [facility] BUN 17 8 - 25 mg/dL [facility] Glucose 107 70 - 199 mg/dL [facility] Comment: Interpretive Data Fasting glucose >/= 126 [...] 2017. Creatinine 0.70 0.60 - 1.10 mg/dL [facility] Calcium 10.2 8.5 - 10.3 mg/dL [facility] Chloride 103 97 - 110 mmol/L [facility] Albumin 4.3 3.5 - 5.0 g/dL [facility] AST 24 10 - 45 Units/L [facility] ALT 17 7 - 45 Units/L [facility] Alk phos 98 40 - 130 Units/L [facility] Bilirubin, total 0.6 0.1 - 1.2 mg/dL [facility] Protein, pl 7.0 6.5 - 8.5 g/dL [facility] Anion gap 7 2 - 15 mmol/L [facility] Blood specimen (specimen) 07/18/2017 9:39 AM MEETING FACILITATOR 07/18/2017 9:46 AM MEETING FACILITATOR Narrative [facility] - 07/18/2017 10:06 AM MEETING FACILITATOR us Eren Cr MD LAB BLOOD ORDERABLES Final Re sult Performing Organization Address City/[facility]/ZIP Co de Phone Number [facility] [place] [address] * Morphology exam (07/18/2017 9:38 AM MEETING FACILITATOR) Pathologist [facility] Morphological Screen, CAM Original results obtained required verification by peripheral smear. [facility] Blood specimen (specimen) 07/18/2017 9:38 AM MEETING FACILITATOR 07/18/2017 9:46 AM MEETING FACILITATOR Narrative [facility] - 07/18/2017 10:17 AM MEETING FACILITATOR Eren Cr MD LAB BLOOD ORDERABLES Final Re sult [facility] [place] [address] * (ABNORMAL) CBC with auto differential (07/18/2017 9:38 AM MEETING FACILITATOR) Pathologist [facility] WBC 8.4 3.8 - 9.8 K/cumm [facility] RBC 5.15(H) 3.90 - 5.00 M/cumm [facility] Hgb 14.9 12.1 - 15.1 g/dL [facility] Hct 44.6(H) 36.1 - 44.3 % [facility] Mean Cellular Volume - CAM 86.6 80.0 - 97.6 fL [facility] Mean Cellular Hemoglobin - CAM 29.0 26.7 - 33.7 pg [facility] Mean Cellular Hemoglobin Concentration - CAM 33.5 32.7 - 35.5 g/dL [facility] Rdw 13.5 11.8 - 14.6 % [facility] Plt 161 140 - 440 K/cumm [facility] Mean Platelet Volume - CAM 8.1 6.8 - 10.4 fL [facility] Neutrophil pct 52.3 38.7 - 74.5 % [facility] Lymphocyte pct 37.5 20.0 - 54.3 % [facility] Monos 7.7 4.3 - 13.5 % [facility] Eosinophil pct 1.5 0.0 - 6.0 % [facility] Basophil pct 1.0 0.0 - 3.0 % [facility] Neutrophil abs 4.4 1.8 - 6.6 K/cumm [facility] Lymphocyte abs 3.2 1.2 - 3.3 K/cumm [facility] Monocyte abs 0.6 0.2 - 1.2 K/cumm [facility] Eosinophils, abs 0.1 0.0 - 0.5 K/cumm [facility] Basophil abs 0.1 0.0 - 0.2 K/cumm [facility] NRBC 0.0 0.0 - 0.2 % [facility] NRBC abs 0.00 0.00 - 0.01 K/cumm [facility] Blood specimen (specimen) 07/18/2017 9:38 AM MEETING FACILITATOR 07/18/2017 9:42 AM MEETING FACILITATOR Narrative [facility] - 07/18/2017 9:51 AM MEETING FACILITATOR Eren Cr MD LAB BLOOD ORDERABLES Edited R esult - Final [facility] [place] [address] * (ABNORMAL) Comprehensive metabolic panel (06/20/2017 10:30 AM MEETING FACILITATOR) Sodium 140 135 - 145 mmol/L [facility] Potassium, pl 3.9 3.3 - 4.9 mmol/L [facility] CO2 29 22 - 32 mmol/L [facility] BUN 14 8 - 25 mg/dL [facility] Glucose 92 70 - 199 mg/dL [facility] Comment: Interpretive Data Fasting glucose >/= 126 [...] 2017. Creatinine 0.73 0.60 - 1.10 mg/dL [facility] Calcium 10.4(H) 8.5 - 10.3 mg/dL [facility] Chloride 104 97 - 110 mmol/L [facility] Albumin 4.1 3.5 - 5.0 g/dL [facility] AST 25 10 - 45 Units/L [facility] ALT 17 7 - 45 Units/L [facility] Alk phos 98 40 - 130 Units/L [facility] Bilirubin, total 0.7 0.1 - 1.2 mg/dL [facility] Protein, pl 7.1 6.5 - 8.5 g/dL [facility] Anion gap 7 2 - 15 mmol/L [facility] Blood specimen (specimen) 06/20/2017 10:30 AM MEETING FACILITATOR 06/20/2017 10:31 AM MEETING FACILITATOR Narrative [facility] - 06/20/2017 10:54 AM MEETING FACILITATOR us Eren Cr MD LAB BLOOD ORDERABLES Final Re sult Performing Organization Address City/[facility]/ZIP Co de Phone Number [facility] [place] [address] * Morphology exam (06/20/2017 9:57 AM MEETING FACILITATOR) [facility] Morphological Screen, CAM Original results obtained required verification by peripheral smear. [facility] Blood specimen (specimen) 06/20/2017 9:57 AM MEETING FACILITATOR 06/20/2017 10:07 AM MEETING FACILITATOR Narrative [facility] - 06/20/2017 10:28 AM MEETING FACILITATOR Eren Cr MD LAB BLOOD ORDERABLES Final Re sult Performing Organization Address [facility] Co de Phone Number [facility] [place] [address] * (ABNORMAL) CBC with auto differential (06/20/2017 9:57 AM MEETING FACILITATOR) [facility] WBC 6.0 3.8 - 9.8 K/cumm [facility] RBC 4.92 3.90 - 5.00 M/cumm [facility] Hgb 14.5 12.1 - 15.1 g/dL [facility] Hct 42.4 36.1 - 44.3 % [facility] Mean Cellular Volume - CAM 86.1 80.0 - 97.6 fL [facility] Mean Cellular Hemoglobin - CAM 29.5 26.7 - 33.7 pg [facility] Mean Cellular Hemoglobin Concentration - CAM 34.3 32.7 - 35.5 g/dL [facility] Rdw 13.3 11.8 - 14.6 % [facility] Plt 139(L) 140 - 440 K/cumm [facility] Mean Platelet Volume - CAM 7.9 6.8 - 10.4 fL [facility] Neutrophil pct 56.0 38.7 - 74.5 % [facility] Lymphocyte pct 34.6 20.0 - 54.3 % [facility] Monos 7.1 4.3 - 13.5 % [facility] Eosinophil pct 1.7 0.0 - 6.0 % [facility] Basophil pct 0.6 0.0 - 3.0 % [facility] Neutrophil abs 3.3 1.8 - 6.6 K/cumm [facility] Lymphocyte abs 2.1 1.2 - 3.3 K/cumm [facility] Monocyte abs 0.4 0.2 - 1.2 K/cumm [facility] Eosinophils, abs 0.1 0.0 - 0.5 K/cumm [facility] Basophil abs 0.0 0.0 - 0.2 K/cumm [facility] NRBC 0.4(H) 0.0 - 0.2 % [facility] NRBC abs 0.03(H) 0.00 - 0.01 K/cumm [facility] Blood specimen (specimen) 06/20/2017 9:57 AM MEETING FACILITATOR 06/20/2017 10:00 AM MEETING FACILITATOR Narrative [facility] - 06/20/2017 10:08 AM MEETING FACILITATOR Eren Cr MD LAB BLOOD ORDERABLES Edited R esult - Final [facility] [place] [address] * Chromogranin A (06/20/2017 9:55 AM MEETING FACILITATOR) [facility] Chromogranin A 62 <93 ng/mL [facility] Comment: ADDITIONAL INFORMATION The testing method is a homogeneous time-resolved immunofluorescent assay. Analyte Specific Reagent: This test was developed and its performance characteristics determined by [facility]. It has not been cleared or approved by the U.S. Food and Drug Administration. ? Values obtained with different assay methods or kits may be different and cannot be used interchangeably. ? Test results cannot be interpreted as absolute evidence for the presence or absence of malignant disease. Test Performed by: [facility] [address] [place] [address] Blood specimen (specimen) 06/20/2017 9:55 AM MEETING FACILITATOR 06/20/2017 10:45 AM MEETING FACILITATOR Narrative [facility] - 06/21/2017 11:49 AM MEETING FACILITATOR Eren Cr MD LAB BLOOD ORDERABLES Final Re sult [facility] [place] [address] * (ABNORMAL) Comprehensive metabolic panel (05/23/2017 10:00 AM MEETING FACILITATOR) Sodium 142 135 - 145 mmol/L [facility] Potassium, pl 4.1 3.3 - 4.9 mmol/L [facility] CO2 30 22 - 32 mmol/L [facility] BUN 14 8 - 25 mg/dL [facility] Glucose 103 70 - 199 mg/dL [facility] Comment: Interpretive Data Fasting glucose >/= 126 [...] 2017. Creatinine 0.75 0.60 - 1.10 mg/dL [facility] Calcium 10.5(H) 8.5 - 10.3 mg/dL [facility] Chloride 105 97 - 110 mmol/L [facility] Albumin 4.2 3.5 - 5.0 g/dL [facility] AST 22 10 - 45 Units/L [facility] ALT 20 7 - 45 Units/L [facility] Alk phos 100 40 - 130 Units/L [facility] Bilirubin, total 0.7 0.1 - 1.2 mg/dL [facility] Protein, pl 7.0 6.5 - 8.5 g/dL [facility] Anion gap 7 2 - 15 mmol/L [facility] Blood specimen (specimen) 05/23/2017 10:00 AM MEETING FACILITATOR 05/23/2017 10:04 AM MEETING FACILITATOR Eren Cr MD LAB BLOOD ORDERABLES Final Re sult Performing Organization Address [facility] de Phone Number [facility] [place] [address] * Chromogranin A (05/23/2017 9:55 AM MEETING FACILITATOR) Pathologist [facility] Chromogranin A 57 <93 ng/mL [facility] Comment: ADDITIONAL INFORMATION The testing method is a homogeneous time-resolved immunofluorescent assay. Analyte Specific Reagent: This test was developed and its performance characteristics determined by [facility]. It has not been cleared or approved by the U.S. Food and Drug Administration. ? Values obtained with different assay methods or kits may be different and cannot be used interchangeably. ? Test results cannot be interpreted as absolute evidence for the presence or absence of malignant disease. Test Performed by: [facility] [address] [id number] Blood specimen (specimen) 05/23/2017 9:55 AM MEETING FACILITATOR 05/23/2017 10:40 AM MEETING FACILITATOR Eren Cr MD LAB BLOOD ORDERABLES Final Re sult Performing Organization Address [facility] de Phone Number [facility] [place] [address] * (ABNORMAL) CBC with auto differential (05/23/2017 9:54 AM MEETING FACILITATOR) Pathologist [facility] WBC 7.7 3.8 - 9.8 K/cumm [facility] RBC 5.16(H) 3.90 - 5.00 M/cumm [facility] Hgb 15.1 12.1 - 15.1 g/dL [facility] Hct 44.6(H) 36.1 - 44.3 % [facility] Mean Cellular Volume - CAM 86.5 80.0 - 97.6 fL [facility] Mean Cellular Hemoglobin - CAM 29.3 26.7 - 33.7 pg [facility] Mean Cellular Hemoglobin Concentration - CAM 33.9 32.7 - 35.5 g/dL [facility] Rdw 13.0 11.8 - 14.6 % [facility] Plt 138(L) 140 - 440 K/cumm [facility] Mean Platelet Volume - CAM 8.1 6.8 - 10.4 fL [facility] Neutrophil pct 53.9 38.7 - 74.5 % [facility] Lymphocyte pct 37.2 20.0 - 54.3 % [facility] Monos 6.7 4.3 - 13.5 % [facility] Eosinophil pct 1.4 0.0 - 6.0 % [facility] Basophil pct 0.8 0.0 - 3.0 % [facility] Neutrophil abs 4.1 1.8 - 6.6 K/cumm [facility] Lymphocyte abs 2.9 1.2 - 3.3 K/cumm [facility] Monocyte abs 0.5 0.2 - 1.2 K/cumm [facility] Eosinophils, abs 0.1 0.0 - 0.5 K/cumm [facility] Basophil abs 0.1 0.0 - 0.2 K/cumm [facility] NRBC 0.3(H) 0.0 - 0.2 % [facility] NRBC abs 0.02(H) 0.00 - 0.01 K/cumm [facility] Blood specimen (specimen) 05/23/2017 9:54 AM MEETING FACILITATOR 05/23/2017 9:57 AM MEETING FACILITATOR us Eren Cr MD LAB BLOOD ORDERABLES Final Re sult [facility] [place] [address] * (ABNORMAL) Comprehensive metabolic panel (04/29/2017 10:35 AM CDT) [facility] Sodium 140 135 - 145 mmol/L [facility] Potassium, pl 3.8 3.3 - 4.9 mmol/L [facility] CO2 28 22 - 32 mmol/L [facility] BUN 13 8 - 25 mg/dL [facility] Glucose 153 70 - 199 mg/dL [facility] Creatinine 0.67 0.60 - 1.10 mg/dL [facility] Calcium 10.5(H) 8.5 - 10.3 mg/dL [facility] Chloride 101 97 - 110 mmol/L [facility] Albumin 4.3 3.5 - 5.0 g/dL [facility] AST 24 10 - 45 Units/L [facility] ALT 20 7 - 45 Units/L [facility] Alk phos 100 40 - 130 Units/L [facility] Bilirubin, total 0.7 0.1 - 1.2 mg/dL [facility] Protein, pl 7.0 6.5 - 8.5 g/dL [facility] Anion gap 11 2 - 15 mmol/L [facility] Blood specimen (specimen) 04/29/2017 10:35 AM CDT 04/29/2017 10:38 AM CDT us Eren Cr MD LAB BLOOD ORDERABLES Final Re sult [facility] [place] [address] * (ABNORMAL) CBC with auto differential (04/29/2017 10:05 AM CDT) [facility] WBC 7.7 3.8 - 9.8 K/cumm [facility] RBC 4.91 3.90 - 5.00 M/cumm [facility] Hgb 14.4 12.1 - 15.1 g/dL [facility] Hct 42.5 36.1 - 44.3 % [facility] Mean Cellular Volume - CAM 86.6 80.0 - 97.6 fL [facility] Mean Cellular Hemoglobin - CAM 29.4 26.7 - 33.7 pg [facility] Mean Cellular Hemoglobin Concentration - CAM 33.9 32.7 - 35.5 g/dL [facility] Rdw 13.2 11.8 - 14.6 % [facility] Plt 143 140 - 440 K/cumm [facility] Mean Platelet Volume - CAM 7.8 6.8 - 10.4 fL [facility] Neutrophil pct 57.6 38.7 - 74.5 % [facility] Lymphocyte pct 34.4 20.0 - 54.3 % [facility] Monos 6.1 4.3 - 13.5 % [facility] Eosinophil pct 1.5 0.0 - 6.0 % [facility] Basophil pct 0.4 0.0 - 3.0 % [facility] Neutrophil abs 4.4 1.8 - 6.6 K/cumm [facility] Lymphocyte abs 2.6 1.2 - 3.3 K/cumm [facility] Monocyte abs 0.5 0.2 - 1.2 K/cumm [facility] Eosinophils, abs 0.1 0.0 - 0.5 K/cumm [facility] Basophil abs 0.0 0.0 - 0.2 K/cumm [facility] NRBC 0.3(H) 0.0 - 0.2 % [facility] NRBC abs 0.03(H) 0.00 - 0.01 K/cumm [facility] Blood specimen (specimen) 04/29/2017 10:05 AM CDT 04/29/2017 10:06 AM CDT us Eren Cr MD LAB BLOOD ORDERABLES Final Re sult [facility] [place] [address] * Chromogranin A (04/29/2017 10:05 AM CDT) Pathologist [facility] Chromogranin A 59 <93 ng/mL [facility] Comment: ADDITIONAL INFORMATION The testing method is a homogeneous time-resolved immunofluorescent assay. Analyte Specific Reagent: This test was developed and its performance characteristics determined by [facility]. It has not been cleared or approved by the U.S. Food and Drug Administration. ? Values obtained with different assay methods or kits may be different and cannot be used interchangeably. ? Test results cannot be interpreted as absolute evidence for the presence or absence of malignant disease. Test Performed by: [facility] [address] [place] [address] Blood specimen (specimen) 04/29/2017 10:05 AM CDT 04/29/2017 10:37 AM CDT us Eren Cr MD LAB BLOOD ORDERABLES Final Re sult [facility] [place] [address] * (ABNORMAL) CBC with auto differential (03/28/2017 9:51 AM CDT) WBC 9.1 3.8 - 9.8 K/cumm [facility] RBC 5.11(H) 3.90 - 5.00 M/cumm [facility] Hgb 15.2(H) 12.1 - 15.1 g/dL [facility] Hct 44.5(H) 36.1 - 44.3 % [facility] Mean Cellular Volume - CAM 87.0 80.0 - 97.6 fL [facility] Mean Cellular Hemoglobin - CAM 29.8 26.7 - 33.7 pg [facility] Mean Cellular Hemoglobin Concentration - CAM 34.3 32.7 - 35.5 g/dL [facility] Rdw 13.0 11.8 - 14.6 % [facility] Plt 145 140 - 440 K/cumm [facility] Mean Platelet Volume - CAM 8.1 6.8 - 10.4 fL [facility] Neutrophil pct 57.8 38.7 - 74.5 % [facility] Lymphocyte pct 34.3 20.0 - 54.3 % [facility] Monos 6.3 4.3 - 13.5 % [facility] Eosinophil pct 1.1 0.0 - 6.0 % [facility] Basophil pct 0.5 0.0 - 3.0 % [facility] Neutrophil abs 5.2 1.8 - 6.6 K/cumm [facility] Lymphocyte abs 3.1 1.2 - 3.3 K/cumm [facility] Monocyte abs 0.6 0.2 - 1.2 K/cumm [facility] Eosinophils, abs 0.1 0.0 - 0.5 K/cumm [facility] Basophil abs 0.0 0.0 - 0.2 K/cumm [facility] NRBC 0.7(H) 0.0 - 0.2 % [facility] NRBC abs 0.07(H) 0.00 - 0.01 K/cumm [facility] Blood specimen (specimen) 03/28/2017 9:51 AM CDT 03/28/2017 9:56 AM CDT us Eren Cr MD LAB BLOOD ORDERABLES Final Re sult [facility] [place] [address] * (ABNORMAL) Comprehensive metabolic panel (03/28/2017 9:50 AM CDT) Sodium 138 135 - 145 mmol/L [facility] Potassium, pl 3.6 3.3 - 4.9 mmol/L [facility] CO2 25 22 - 32 mmol/L [facility] BUN 14 8 - 25 mg/dL [facility] Glucose 126 70 - 199 mg/dL [facility] Creatinine 0.67 0.60 - 1.10 mg/dL [facility] Calcium 10.4(H) 8.5 - 10.3 mg/dL [facility] Chloride 104 97 - 110 mmol/L [facility] Albumin 4.2 3.5 - 5.0 g/dL [facility] AST 22 10 - 45 Units/L [facility] ALT 16 7 - 45 Units/L [facility] Alk phos 99 40 - 130 Units/L [facility] Bilirubin, total 0.6 0.1 - 1.2 mg/dL [facility] Protein, pl 7.0 6.5 - 8.5 g/dL [facility] Anion gap 9 2 - 15 mmol/L [facility] Blood specimen (specimen) 03/28/2017 9:50 AM CDT 03/28/2017 10:06 AM CDT Eren Cr MD LAB BLOOD ORDERABLES Final Re sult Performing Organization Address [facility] Co de Phone Number [facility] [place] [address] * Chromogranin A (03/28/2017 9:40 AM CDT) Chromogranin A 58 <93 ng/mL [facility] Comment: ADDITIONAL INFORMATION The testing method is a homogeneous time-resolved immunofluorescent assay. Analyte Specific Reagent: This test was developed and its performance characteristics determined by [facility]. It has not been cleared or approved by the U.S. Food and Drug Administration. ? Values obtained with different assay methods or kits may be different and cannot be used interchangeably. ? Test results cannot be interpreted as absolute evidence for the presence or absence of malignant disease. Test Performed by: [address] [id number] Blood specimen (specimen) 03/28/2017 9:40 AM CDT 03/28/2017 11:43 AM CDT Eren Cr MD LAB BLOOD ORDERABLES Final Re sult Performing Organization Address [facility] Co de Phone Number [facility] [place] [address] * (ABNORMAL) Comprehensive metabolic panel (02/26/2017 11:42 AM CDT) Sodium 141 135 - 145 mmol/L [facility] Potassium, pl 4.7 3.3 - 4.9 mmol/L [facility] CO2 31 22 - 32 mmol/L [facility] BUN 14 8 - 25 mg/dL [facility] Glucose 101 70 - 199 mg/dL [facility] Creatinine 0.74 0.60 - 1.10 mg/dL [facility] Calcium 10.6(H) 8.5 - 10.3 mg/dL [facility] Chloride 103 97 - 110 mmol/L [facility] Albumin 4.4 3.5 - 5.0 g/dL [facility] AST 25 10 - 45 Units/L [facility] ALT 21 7 - 45 Units/L [facility] Alk phos 97 40 - 130 Units/L [facility] Bilirubin, total 0.5 0.1 - 1.2 mg/dL [facility] Protein, pl 7.2 6.5 - 8.5 g/dL [facility] Anion gap 7 2 - 15 mmol/L [facility] Blood specimen (specimen) 02/26/2017 11:42 AM CDT 02/26/2017 11:48 AM CDT Eren Cr MD LAB BLOOD ORDERABLES Final Re sult [facility] [place] [address] * Chromogranin A (02/26/2017 11:42 AM CDT) Chromogranin A 56 <93 ng/mL [facility] Comment: ADDITIONAL INFORMATION The testing method is a homogeneous time-resolved immunofluorescent assay. Analyte Specific Reagent: This test was developed and its performance characteristics determined by [facility]. It has not been cleared or approved by the U.S. Food and Drug Administration. ? Values obtained with different assay methods or kits may be different and cannot be used interchangeably. ? Test results cannot be interpreted as absolute evidence for the presence or absence of malignant disease. Test Performed by: [facility] - [address] [address] Blood specimen (specimen) 02/26/2017 11:42 AM CDT 02/26/2017 12:15 PM CDT us Eren Cr MD LAB BLOOD ORDERABLES Final Re sult [facility] [place] [address] * (ABNORMAL) CBC with auto differential (02/26/2017 11:41 AM CDT) Pathologist [facility] WBC 7.2 3.8 - 9.8 K/cumm [facility] RBC 5.05(H) 3.90 - 5.00 M/cumm [facility] Hgb 14.6 12.1 - 15.1 g/dL [facility] Hct 42.9 36.1 - 44.3 % [facility] Mean Cellular Volume - CAM 84.8 80.0 - 97.6 fL [facility] Mean Cellular Hemoglobin - CAM 28.9 26.7 - 33.7 pg [facility] Mean Cellular Hemoglobin Concentration - CAM 34.1 32.7 - 35.5 g/dL [facility] Rdw 13.1 11.8 - 14.6 % [facility] Plt 151 140 - 440 K/cumm [facility] Mean Platelet Volume - CAM 7.8 6.8 - 10.4 fL [facility] Neutrophil pct 54.5 38.7 - 74.5 % [facility] Lymphocyte pct 36.7 20.0 - 54.3 % [facility] Monos 6.8 4.3 - 13.5 % [facility] Eosinophil pct 1.3 0.0 - 6.0 % [facility] Basophil pct 0.7 0.0 - 3.0 % [facility] Neutrophil abs 3.9 1.8 - 6.6 K/cumm [facility] Lymphocyte abs 2.6 1.2 - 3.3 K/cumm [facility] Monocyte abs 0.5 0.2 - 1.2 K/cumm [facility] Eosinophils, abs 0.1 0.0 - 0.5 K/cumm [facility] Basophil abs 0.1 0.0 - 0.2 K/cumm [facility] NRBC 0.3(H) 0.0 - 0.2 % [facility] NRBC abs 0.02(H) 0.00 - 0.01 K/cumm [facility] Blood specimen (specimen) 02/26/2017 11:41 AM CDT 02/26/2017 11:44 AM CDT Eren Cr MD LAB BLOOD ORDERABLES Final Re sult [facility] [place] [address] * CBC with auto differential (01/29/2017 11:52 AM CDT) WBC 7.8 3.8 - 9.8 K/cumm [facility] RBC 4.98 3.90 - 5.00 M/cumm [facility] Hgb 14.4 12.1 - 15.1 g/dL [facility] Hct 42.3 36.1 - 44.3 % [facility] Mean Cellular Volume - CAM 85.0 80.0 - 97.6 fL [facility] Mean Cellular Hemoglobin - CAM 28.9 26.7 - 33.7 pg [facility] Mean Cellular Hemoglobin Concentration - CAM 34.1 32.7 - 35.5 g/dL [facility] Rdw 13.8 11.8 - 14.6 % [facility] Plt 141 140 - 440 K/cumm [facility] Mean Platelet Volume - CAM 8.1 6.8 - 10.4 fL [facility] Neutrophil pct 55.1 38.7 - 74.5 % [facility] Lymphocyte pct 35.3 20.0 - 54.3 % [facility] Monos 7.9 4.3 - 13.5 % [facility] Eosinophil pct 1.1 0.0 - 6.0 % [facility] Basophil pct 0.6 0.0 - 3.0 % [facility] Neutrophil abs 4.3 1.8 - 6.6 K/cumm [facility] Lymphocyte abs 2.8 1.2 - 3.3 K/cumm [facility] Monocyte abs 0.6 0.2 - 1.2 K/cumm [facility] Eosinophils, abs 0.1 0.0 - 0.5 K/cumm [facility] Basophil abs 0.0 0.0 - 0.2 K/cumm [facility] NRBC 0.1 0.0 - 0.2 % [facility] NRBC abs 0.01 0.00 - 0.01 K/cumm [facility] Blood specimen (specimen) 01/29/2017 11:52 AM CDT 01/29/2017 11:55 AM CDT us Eren Cr MD LAB BLOOD ORDERABLES Final Re sult [facility] One [facility] [place] [address] * (ABNORMAL) Comprehensive metabolic panel (01/29/2017 11:45 AM CDT) Sodium 139 135 - 145 mmol/L [facility] Potassium, pl 3.9 3.3 - 4.9 mmol/L [facility] CO2 27 22 - 32 mmol/L [facility] BUN 14 8 - 25 mg/dL [facility] Glucose 106 70 - 199 mg/dL [facility] Creatinine 0.87 0.60 - 1.10 mg/dL [facility] Calcium 11.0(H) 8.5 - 10.3 mg/dL [facility] Chloride 102 97 - 110 mmol/L [facility] Albumin 4.2 3.5 - 5.0 g/dL [facility] AST 24 10 - 45 Units/L [facility] ALT 18 7 - 45 Units/L [facility] Alk phos 96 40 - 130 Units/L [facility] Bilirubin, total 0.5 0.1 - 1.2 mg/dL [facility] Protein, pl 7.0 6.5 - 8.5 g/dL [facility] Anion gap 10 2 - 15 mmol/L [facility] Blood specimen (specimen) 01/29/2017 11:45 AM CDT 01/29/2017 12:03 PM CDT Eren Cr MD LAB BLOOD ORDERABLES Final Re sult Performing Organization Address [facility] de Phone Number [facility]ON [facility] [place] [address] * Chromogranin A (01/29/2017 11:45 AM CDT) Chromogranin A 62 <93 ng/mL [facility] Comment: ADDITIONAL INFORMATION The testing method is a homogeneous time-resolved immunofluorescent assay. Analyte Specific Reagent: This test was developed and its performance characteristics determined by [facility]. It has not been cleared or approved by the U.S. Food and Drug Administration. ? Values obtained with different assay methods or kits may be different and cannot be used interchangeably. ? Test results cannot be interpreted as absolute evidence for the presence or absence of malignant disease. Test Performed by: [place] [address] Blood specimen (specimen) 01/29/2017 11:45 AM CDT 01/29/2017 1:10 PM CDT Eren Cr MD LAB BLOOD ORDERABLES Final Re sult Performing Organization Address 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
--- OUTSIDE RECORDS SUMMARY | 2024-06-26 02:22 | XMS_ITS | Encounter Summary ---
Author Organization [facility] Healthcare Address [address] [place] [address] Care Team Providers Care Continuing Education Dean Name Role Phone Julio César Briseno MD Primary Care Provider Encounter Details Date Type Department Care Team (Latest Contact Info) Description 01/21/2017 8:51 AM CDT - 01/21/2017 11:59 PM CDT Hospital Encounter [facility] OP INTERIM [phone] Discharge Disposition: Discharge to home or self care Social History Tobacco Use Types Packs/Day Years Used Date Smoking Tobacco: Former Comments Unknown Sex and Gender Information Value Date Recorded Sex Assigned at Not on file 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 Gender Identity Not on file Sexual Orientation Straight 02/19/2021 9: 29 AM CDT documented as of this encounter Medications at Time of Discharge ascorbic acid, vitamin C, 500 mg capsuleIndicatio ns:supplement Take 1 tablet by mouth commissions specialist before breakfast 07/04/2016 4 octreotide (SandoSTATIN) 50 mcg/mL (1 mL) syringe every 30 (thirty) days 04/09/2016 2 documented as of this encounter Discharge Disposition Disposition Code Departure Means Destination Discharge to home or self care documented in this encounter Plan of Treatment Not on file documented as of this encounter Visit Diagnoses Not on filedocumented in this encounter Care Teams Continuing Education Dean Relationship Specialty Start Date End Date Julio César Briseno MD PCP - General 10/01/16 documented as of this encounter
--- OUTSIDE RECORDS SUMMARY | 2024-06-26 02:22 | XMS_ITS | Encounter Summary ---
Author Organization [facility] Healthcare Address [address] [place] [address] Care Team Providers Care Navy Seal Name Role Phone Julio César Briseno MD Primary Care Provider [phone] Encounter Details Date Type Department Care Team (Late st Contact Info) Description 12/04/2016 Orders Only [facility] Interim [phone] Eren Cr MD [address] [facility] [address] [place], [place] [id number] Social History Tobacco Use Types Packs/Day Years Used Date Smoking Tobacco: Never Assessed Comments Unknown Sex and Gender Information Value Date Recorded Sex Assigned at Not on file 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 Gender Identity Not on file Sexual [...] WBC 6.6 3.8 - 9.8 K/cumm [facility] RBC 4.79 3.90 - 5.00 M/cumm [facility] Hgb 13.9 12.1 - 15.1 g/dL [facility] Hct 40.4 36.1 - 44.3 % [facility] Mean Cellular Volume - CAM 84.2 80.0 - 97.6 fL [facility] Mean Cellular Hemoglobin - CAM 29.0 26.7 - 33.7 pg [facility] Mean Cellular Hemoglobin Concentration - CAM 34.5 32.7 - 35.5 g/dL [facility] Rdw 13.4 11.8 - 14.6 % [facility] Plt 131(L) 140 - 440 K/cumm [facility] Mean Platelet Volume - CAM 8.1 6.8 - 10.4 fL [facility] Neutrophil pct 48.2 38.7 - 74.5 % [facility] Lymphocyte pct 41.9 20.0 - 54.3 % [facility] Monos 7.5 4.3 - 13.5 % [facility] Eosinophil pct 1.6 0.0 - 6.0 % [facility] Basophil pct 0.8 0.0 - 3.0 % [facility] Neutrophil abs 3.2 1.8 - 6.6 K/cumm [facility] Lymphocyte abs 2.8 1.2 - 3.3 K/cumm [facility] Monocyte abs 0.5 0.2 - 1.2 K/cumm [facility] Eosinophils, abs 0.1 0.0 - 0.5 K/cumm [facility] Basophil abs 0.1 0.0 - 0.2 K/cumm [facility] NRBC 0.0 0.0 - 0.2 % [facility] NRBC abs 0.00 0.00 - 0.01 K/cumm [facility] Blood specimen (specimen) 12/04/2016 7:00 AM CDT 12/04/2016 7:05 AM CDT us Eren Cr MD LAB BLOOD ORDERABLES Final Re sult [facility] One [facility] Department [place] [address] documented in this encounter Visit Diagnoses Not on filedocumented in this encounter Care Teams Navy Seal Relationship Specialty Start Date End Date Julio César Briseno MD PCP - General 10/01/16 documented as of this encounter
--- OUTSIDE RECORDS SUMMARY | 2024-06-26 02:22 | XMS_ITS | Encounter Summary ---
Author Organization [facility] Healthcare Address [address] [place] [address] Care Team Providers Care Entry Level Chemist Name Role Phone Julio César Briseno MD Primary Care Provider Encounter Details Date Type Department Care Team (Late st Contact Info) Description 10/08/2016 Orders Only [facility] Interim [phone] Eren Cr MD [address] [facility] [address] [place], [place] [id number] Social History Tobacco Use Types Packs/Day Years Used Date Smoking Tobacco: Never Assessed Comments Unknown Sex and Gender Information Value Date Recorded Sex Assigned at Not on file 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 Gender Identity Not on file [...] CDT) WBC 8.3 3.8 - 9.8 K/cumm [facility] RBC 4.99 3.90 - 5.00 M/cumm [facility] Hgb 14.2 12.1 - 15.1 g/dL [facility] Hct 42.6 36.1 - 44.3 % [facility] Mean Cellular Volume - CAM 85.4 80.0 - 97.6 fL [facility] Mean Cellular Hemoglobin - CAM 28.5 26.7 - 33.7 pg [facility] Mean Cellular Hemoglobin Concentration - CAM 33.4 32.7 - 35.5 g/dL [facility] Rdw 13.5 11.8 - 14.6 % [facility] Plt 151 140 - 440 K/cumm [facility] Mean Platelet Volume - CAM 8.7 6.8 - 10.4 fL [facility] Neutrophil pct 50.7 38.7 - 74.5 % [facility] Lymphocyte pct 41.7 20.0 - 54.3 % [facility] Monos 5.7 4.3 - 13.5 % [facility] Eosinophil pct 1.3 0.0 - 6.0 % [facility] Basophil pct 0.6 0.0 - 3.0 % [facility] Neutrophil abs 4.2 1.8 - 6.6 K/cumm [facility] Lymphocyte abs 3.5(H) 1.2 - 3.3 K/cumm [facility] Monocyte abs 0.5 0.2 - 1.2 K/cumm [facility] Eosinophils, abs 0.1 0.0 - 0.5 K/cumm [facility] Basophil abs 0.0 0.0 - 0.2 K/cumm [facility] Blood specimen (specimen) 10/08/2016 12:14 PM CDT 10/08/2016 12:18 PM CDT us Eren Cr MD LAB BLOOD ORDERABLES Final Re sult [facility] One [facility] Department [place] [address] documented in this encounter Visit Diagnoses Not on filedocumented in this encounter Care Teams Entry Level Chemist Relationship Specialty Start Date End Date Julio César Briseno MD PCP - General 10/01/16 documented as of this encounter
--- OUTSIDE RECORDS SUMMARY | 2024-06-26 02:22 | XMS_ITS | Encounter Summary ---
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 Gender Identity Not on file Sexual [...] [facility] BUN 14 8 - 25 mg/dL [facility] Glucose 121 70 - 199 mg/dL [facility] Creatinine 0.84 0.60 - 1.10 mg/dL [facility] Calcium 10.8(H) 8.5 - 10.3 mg/dL [facility] Chloride 100 97 - 110 mmol/L [facility] Comment:fixed result mapping Albumin 4.4 3.5 - 5.0 g/dL [facility] AST 26 10 - 45 Units/L [facility] ALT 23 7 - 45 Units/L [facility] Alk phos 112 40 - 130 Units/L [facility] Bilirubin, total 1.0 0.1 - 1.2 mg/dL [facility] Protein, pl 7.5 6.5 - 8.5 g/dL [facility] Anion gap 10 2 - 15 mmol/L [facility] Blood specimen (specimen) 2016 8:55 AM CDT 2016 8:57 AM CDT us Eren Cr MD LAB BLOOD ORDERABLES Final Re sult [facility] Department [place] [address] documented in this encounter Visit Diagnoses Not on filedocumented in this encounter Care Teams Cell Tuber Machine Relationship Specialty Start Date End Date Julio César Briseno MD PCP - General 10/01/16 documented as of this encounter
--- OUTSIDE RECORDS SUMMARY | 2024-06-26 02:22 | XMS_ITS | Encounter Summary ---
Author Organization [facility] Healthcare Address [address] [place] [address] Care Team Providers Care Supervisor Roller Printing Name Role Phone Julio César Briseno MD Primary Care Provider [phone] Encounter Details Date Type Department Care Team (Late st Contact Info) Description 10/08/2016 Orders Only [facility] Interim [phone] Eren Cr MD [address] [facility] [address] [place], [place] [id number] Social History Tobacco Use Types Packs/Day Years Used Date Smoking Tobacco: Never Assessed Comments Unknown Sex and Gender Information Value Date Recorded Sex Assigned at Not on file Legal Sex Female 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 Gender Identity Not on file Sexual Orientation [...] [facility]J BUN 14 8 - 25 mg/dL [facility] Glucose 152 70 - 199 mg/dL [facility] Creatinine 0.75 0.60 - 1.10 mg/dL [facility] Calcium 10.5(H) 8.5 - 10.3 mg/dL [facility] Chloride 105 97 - 110 mmol/L [facility] Comment:fixed result mapping Albumin 4.3 3.5 - 5.0 g/dL [facility] AST 27 10 - 45 Units/L [facility] ALT 23 7 - 45 Units/L [facility] Alk phos 105 40 - 130 Units/L [facility] Bilirubin, total 0.7 0.1 - 1.2 mg/dL [facility] Protein, pl 7.0 6.5 - 8.5 g/dL [facility] Anion gap 8 2 - 15 mmol/L [facility] Blood specimen (specimen) 10/08/2016 12:35 PM CDT 10/08/2016 12:37 PM CDT us Eren Cr MD LAB BLOOD ORDERABLES Final Re sult [facility] One [facility] Department [place] [address] documented in this encounter Visit Diagnoses Not on filedocumented in this encounter Care Teams Supervisor Roller Printing Relationship Specialty Start Date End Date Julio César Briseno MD PCP - General 10/01/16 documented as of this encounter
--- OUTSIDE RECORDS SUMMARY | 2024-06-26 02:22 | XMS_ITS | Encounter Summary ---
Author Organization 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 FINAL REPORT ACC# ??Date Time ??Exam [id number] Apr 18, 2016 14:23:[id number] Chest with contrast [id number] Apr 18, 2016 14:23:[id number] Abd & Pelvis with cont EXAMINATION: [...] TALAVERA M.D. on Apr 18 2016 ??3:00P [id number] Procedure Note Provider, MD Levon - 11/14/2016 YVONNE TALAVERA M.D. FINAL REPORT ACC# Date Time Exam [id number] Apr 18, 2016 14:23:[id number] Chest with contrast [id number] Apr 18, 2016 14:23:[id number] Abd & Pelvis with cont EXAMINATION: [...] TALAVERA M.D. on Apr 18 2016 3:00P [id number] us Historical Provider MD ALONZO CT PROCEDURES Final R esult * CT Abdomen Pelvis W Contrast (04/18/2016 2:23 PM CDT) Anatomical Region Laterality Modality Body N/A Computed Tomogra phy 04/18/2016 2:23 PM CDT Narrative 04/18/2016 3:00 PM CDT YVONNE TALAVERA M.D. FINAL REPORT ACC# ??Date Time ??Exam [id number] Apr 18, 2016 14:23:[id number] Chest with contrast [id number] Apr 18, 2016 14:23:[id number] Abd & Pelvis with cont EXAMINATION: [...] TALAVERA M.D. on Apr 18 2016 ??3:00P [id number] Procedure Note Provider, MD Levon - 11/14/2016 YVONNE TALAVERA M.D. FINAL REPORT ACC# Date Time Exam [id number] Apr 18, 2016 14:23:[id number] Chest with contrast [id number] Apr 18, 2016 14:23:[id number] Abd & Pelvis with cont EXAMINATION: [...] TALAVERA M.D. on Apr 18 2016 3:00P [id number] us Historical Provider MD ALONZO CT PROCEDURES Final R esult documented in this encounter Visit Diagnoses Diagnosis Other malignant neuroendocrine tumors (HCC) Other nonspecific abnormal finding of lung field Atherosclerosis of aorta (HCC) Atherosclerosis of aorta Other alf (current) drug therapy History of intestinal bypass Intestinal bypass or anastomosis status Acquired cyst of kidney Acquired absence of both cervix and uterus documented in this encounter
--- OUTSIDE RECORDS SUMMARY | 2024-06-26 02:22 | XMS_ITS | Encounter Summary ---
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 [address] [place] [address] Phone: tel: fax: [address] [phone] Phone: tel: fax: Referral ID Status Reason Start Date Expiration Date V isits Requested Visits Authorized [id number] Authorized 11/28/2017 02/05/2025 1 150 Encounter Details Date Type Department Care Team (Late st Contact Info) Description 12/30/2017 9:15 AM CDT Lab [facility] Oncology [address] [facility] 7th [place] [address] [place] [id number] Malignant neoplasm metastatic to liver (CMS/HCC); Neuroendocrine carcinoma (CMS/HCC) Social History Tobacco Use Types Packs/Day Years Used Date Smoking Tobacco: Former Comments Unknown Sex and Gender Information Value Date Recorded Sex Assigned at Not on file 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 Measured chromogranin A concentrations were on average 7% higher using the new reagent formulation. However, for individual specimens the variation may exceed 7%. Upon request, samples previously submitted within the last six months can be retested using the new reagent formulation. ADDITIONAL INFORMATION This test was developed and its performance characteristics determined by [facility] in a manner consistent with CLIA requirements. [...] Test Performed by: [facility] [address] [place] [address] Blood specimen (specimen) 12/30/2017 8:44 AM CDT 12/30/2017 11:47 AM CDT Narrative [facility] - 12/31/2017 12:11 PM CDT us Eren Cr MD LAB BLOOD ORDERABLES Final Re sult [facility] One [facility] Department [place] [address] * Comprehensive metabolic panel (12/30/2017 8:44 AM [...] Re sult [facility] One [facility] Department [place] [address] * Differential, auto (12/30/2017 8:37 AM CDT) Neutrophil abs 3.9 1.8 - 6.6 K/cumm [facility] Lymphocyte abs 1.7 1.2 - 3.3 K/cumm [facility] Monocyte abs 0.4 0.2 - 1.2 K/cumm [facility] Eosinophil abs 0.2 0.0 - 0.5 K/cumm [facility] Basophil abs 0.0 0.0 - 0.2 K/cumm [facility] Neutrophil pct 62.7 % [facility] Comment: Interpretive Data Percent cell count reference ranges are not reported, since discordance with absolute values may lead to misinterpretation of CBC data. Current Interpretive Data was last revised on 2017. Lymphocyte pct 27.2 % [facility] Comment: Interpretive Data Percent cell count reference ranges are not reported, since discordance with absolute values may lead to misinterpretation of CBC data. Current Interpretive Data was last revised on 2017. Monocyte pct 6.4 % [facility] Eosinophil pct 3.1 % [facility] Basophil pct 0.6 % [facility] Blood specimen (specimen) 12/30/2017 8:37 AM CDT 12/30/2017 8:41 AM CDT Narrative [facility] - 12/30/2017 8:45 AM CDT us Eren Cr MD LAB BLOOD ORDERABLES Final Re sult Performing Organization Address 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
--- OUTSIDE RECORDS SUMMARY | 2024-06-26 02:22 | XMS_ITS | Encounter Summary ---
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 Gender Identity Not on file Sexual [...] BLACK RBC 5.04(H) 3.90 - 5.00 M/cumm [facility] Hgb 14.6 12.1 - 15.1 g/dL [facility] Hct 42.7 36.1 - 44.3 % [facility] Mean Cellular Volume - CAM 84.7 80.0 - 97.6 fL [facility] Mean Cellular Hemoglobin - CAM 28.9 26.7 - 33.7 pg [facility] Mean Cellular Hemoglobin Concentration - CAM 34.2 32.7 - 35.5 g/dL [facility] Rdw 14.0 11.8 - 14.6 % [facility] Plt 163 140 - 440 K/cumm [facility] Mean Platelet Volume - CAM 8.0 6.8 - 10.4 fL [facility] Neutrophil pct 47.9 38.7 - 74.5 % [facility] Lymphocyte pct 42.7 20.0 - 54.3 % [facility] Monos 7.2 4.3 - 13.5 % [facility] Eosinophil pct 1.2 0.0 - 6.0 % [facility] Basophil pct 1.0 0.0 - 3.0 % [facility] Neutrophil abs 3.8 1.8 - 6.6 K/cumm [facility] Lymphocyte abs 3.4(H) 1.2 - 3.3 K/cumm [facility] Monocyte abs 0.6 0.2 - 1.2 K/cumm [facility] Eosinophils, abs 0.1 0.0 - 0.5 K/cumm [facility] Basophil abs 0.1 0.0 - 0.2 K/cumm [facility] NRBC 0.1 0.0 - 0.2 % [facility] NRBC abs 0.00 0.00 - 0.01 K/cumm [facility] Blood specimen (specimen) 12/31/2016 11:30 AM CDT 12/31/2016 11:34 AM CDT Eren Cr MD LAB BLOOD ORDERABLES Final Re sult [facility] One [facility] Department [place] [address] documented in this encounter Visit Diagnoses Not on filedocumented in this encounter Care Teams Manager Pathology Relationship Specialty Start Date End Date Julio César Briseno MD PCP - General 10/01/16 documented as of this encounter
--- OUTSIDE RECORDS SUMMARY | 2024-06-26 02:22 | XMS_ITS | Encounter Summary ---
Author Organization [facility] Address [address] [place] [address] Phone Care Team Providers Care Curling Machine Operator Name Role Phone Julio César Briseno MD Primary Care Provider Encounter Details Date Type Department Care Team (Late st Contact Info) Description 12/26/2017 Orders Only [facility] [address] 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
--- OUTSIDE RECORDS SUMMARY | 2024-06-26 02:22 | XMS_ITS | Encounter Summary ---
Author Organization [facility] Healthcare Address [address] [place] [address] Care Team Providers Care Guide Escort Name Role Phone Julio César Briseno MD Primary Care Provider [phone] Encounter Details Date Type Department Care Team (Late st Contact Info) Description 12/31/2016 Orders Only [facility] [phone] Eren Cr MD [address] 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 Gender Identity Not on file Sexual [...] Sodium 140 135 - 145 mmol/L [facility] Potassium, pl 3.9 3.3 - 4.9 mmol/L [facility] BJ CO2 28 22 - 32 mmol/L [facility] BUN 12 8 - 25 mg/dL [facility] Glucose 111 70 - 199 mg/dL [facility] Creatinine 0.83 0.60 - 1.10 mg/dL [facility] Calcium 10.9(H) 8.5 - 10.3 mg/dL [facility] Chloride 103 97 - 110 mmol/L [facility] Albumin 4.3 3.5 - 5.0 g/dL [facility] AST 24 10 - 45 Units/L [facility] ALT 18 7 - 45 Units/L [facility] Alk phos 111 40 - 130 Units/L [facility] Bilirubin, total 0.9 0.1 - 1.2 mg/dL [facility] Protein, pl 7.2 6.5 - 8.5 g/dL [facility] Anion gap 9 2 - 15 mmol/L [facility] Blood specimen (specimen) 12/31/2016 11:55 AM CDT 12/31/2016 11:57 AM CDT Eren Cr MD LAB BLOOD ORDERABLES Final Re sult [facility] One [facility] Department [place] [address] documented in this encounter Visit Diagnoses Not on filedocumented in this encounter Care Teams Guide Escort Relationship Specialty Start Date End Date Julio César Briseno MD PCP - General 10/01/16 documented as of this encounter
--- OUTSIDE RECORDS SUMMARY | 2024-06-26 02:22 | XMS_ITS | Encounter Summary ---
Author Organization [facility] Healthcare Address [address] [place] [address] Care Team Providers Care Assembly Line Machine Operator Name Role Phone Julio César Briseno MD Primary Care Provider [phone] Encounter Details Date Type Department Care Team (Late st Contact Info) Description 12/04/2016 Orders Only [facility] [phone] Eren Cr MD [address] [facility] [address] [place], [place] [id number] Social History Tobacco Use Types Packs/Day Years Used Date Smoking Tobacco: Never Assessed Comments Unknown Sex and Gender Information Value Date Recorded Sex Assigned at Not on file 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 Analyte Specific Reagent: This test was developed and its performance characteristics determined by [facility]. It has not been cleared or approved by the U.S. Food and Drug Administration. ? Values obtained with different assay methods or kits may be different and cannot be used interchangeably. ? Test results cannot be interpreted as absolute evidence for the presence or absence of malignant disease. Test Performed by: [place] [address] Blood specimen (specimen) 12/04/2016 7:00 AM CDT 12/04/2016 8:05 AM CDT Eren Cr MD LAB BLOOD ORDERABLES Final Re sult [facility] One [facility] [place] [address] documented in this encounter Visit Diagnoses Not on filedocumented in this encounter Care Teams Assembly Line Machine Operator Relationship Specialty Start Date End Date Julio César Briseno MD PCP - General 10/01/16 documented as of this encounter
--- OUTSIDE RECORDS SUMMARY | 2024-06-26 02:22 | XMS_ITS | Encounter Summary ---
Author Organization [facility] Address [address] [place] [address] Phone Care Team Providers Care Clinical Biostatistician Name Role Phone Julio César Briseno MD Primary Care Provider [phone] Encounter Details Date Type Department Care Team (Late st Contact Info) Description 11/28/2017 Orders Only [facility] Oncology [address] 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
--- OUTSIDE RECORDS SUMMARY | 2024-06-26 02:22 | XMS_ITS | Encounter Summary ---
Author Organization [facility] Healthcare Address [address] [place] [address] Care Team Providers Care Public Relations Name Role Phone Julio César Briseno MD Primary Care Provider Encounter Details Date Type Department Care Team (Late st Contact Info) Description 10/08/2016 8:32 AM CDT - 10/08/2016 11:59 PM CDT Hospital Encounter [facility] INTERIM [phone] Bailee Alcazar MD [address] [address] Discharge Disposition: Discharge to home or self care Social History Tobacco Use Types Packs/Day Years Used Date Smoking Tobacco: Never Assessed Comments Unknown Sex and Gender Information Value Date Recorded Sex Assigned at Not on file Legal Sex Female 2:41 PM K 12 PRINCIPAL Gender Identity Not on file Sexual Orientation Straight 02/19/2021 9: 29 AM CDT documented as of this encounter Medications at Time of Discharge ascorbic acid, vitamin C, 500 mg capsuleIndicatio ns:supplement Take 1 tablet by 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 FINAL REPORT ACC# ??Date Time ??Exam [id number] Oct 08, 2016 09:08:00 [facility] [id number] Scr Mamm kushal 2v w/KHANH ?? Technologist(s): Renetta Walsh; ; EXAMINATION: ??Mammogram Technique: Bilateral Digital Breast Tomosynthesis, Bilateral C-view 2D Screening mammogram. ??Views obtained: ??bilateral craniocaudal and bilateral mediolateral oblique. ??Computer Aided Detection was performed. Mammogram Findings: The present examination has been compared to prior imaging studies performed at [facility] on 06/28/2014 and 06/29/2015. There are scattered [...] WHITLOCK M.D. on Oct 15 2016 11:51A [id number] Procedure Note Miscellaneous, Notinfile / Provider, MD Levon - 11/29/2016 MONO WHITLOCK M.D. FINAL REPORT ACC# Date Time Exam [id number] Oct 08, 2016 09:08:00 [facility] [id number] Scr Mamm kushal 2v w/KHANH Technologist(s): Renetta Walsh; ; EXAMINATION: Mammogram Technique: Bilateral Digital Breast Tomosynthesis, Bilateral C-view 2D Screening mammogram. Views obtained: bilateral craniocaudal and bilateral mediolateral oblique. Computer Aided Detection was performed. Mammogram Findings: The present examination has been compared to prior imaging studies performed at [facility] on 06/28/2014 and 06/29/2015. There are scattered areas of fibroglandular density. There is no suspicious abnormality in either breast. IMPRESSION: Annual screening mammography is recommended. OVERALL FINAL ASSESSMENT: BI-RADS CATEGORY 1: Negative. Requested By: Bailee Alcazar M.D. Dictated By: MONO WHITLOCK M.D. on Oct 15 2016 11:51A This document has been electronically signed by: MONO WHITLOCK M.D. on Oct 15 2016 11:51A [id number] us Not In File Miscellaneous IMG MAMMO PROCEDURES F inal Result documented in this encounter Visit Diagnoses Not on filedocumented in this encounter Care Teams Public Relations Relationship Specialty Start Date End Date Julio César Briseno MD PCP - General 10/01/16 documented as of this encounter
--- OUTSIDE RECORDS SUMMARY | 2024-06-26 02:22 | XMS_ITS | Encounter Summary ---
Author Organization [facility] Healthcare Address [address] [place] [address] Care Team Providers Care Scutcher Tender Name Role Phone Julio César Briseno MD Primary Care Provider Encounter Details Date Type Department Care Team (Latest Contact Info) Description 04/29/2017 7:30 AM CDT - 04/29/2017 11:59 PM CDT Hospital Encounter [facility] OP INTERIM [phone] Eren Wu MD [address] [place], [place] [id number] Discharge Disposition: Discharge to home or self care Social History Tobacco Use Types Packs/Day Years Used Date Smoking Tobacco: Former Comments Unknown Sex and Gender Information Value Date Recorded Sex Assigned at Not on file 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 FINAL REPORT ACC# ??Date Time ??Exam [id number] Apr 29, 2017 08:15:[id number] Chest with contrast [id number] Apr 29, 2017 08:15:[id number] Abd ??and ??Pelvis with cont EXAMINATION: [...] BOND M.D. on Apr 29 2017 ??8:26A [id number] BOND M.D. FINAL REPORT Attending: ??BRYCE, ??EREN Requesting: ??BRYCE, ??EREN Requesting Fax: ?? Attending Fax: ?? Attending ID: ??[id number] Requesting ID: ??[id number] Report To 1 ID: ??[id number] ? Report To 1 Name: ??, ?? Report To 1 FAX: ?? NextGen Order #: ?? Procedure Note Miscellaneous, Not In File - 04/29/2017 GÉNESIS VARUN, M.D. FINAL REPORT ACC# Date Time Exam [id number] Apr 29, 2017 08:15:[id number] Chest with contrast [id number] Apr 29, 2017 08:15:[id number] Abd and Pelvis with cont EXAMINATION: [...] BOND M.D. on Apr 29 2017 8:26A [id number] BOND M.D. FINAL REPORT Attending: EREN WU Requesting: EREN WU Requesting Fax: Attending Fax: Attending ID: [id number] Requesting ID: [id number] Report To 1 ID: [id number] Report To 1 Name: , Report To 1 FAX: NextGen Order #: Eren Wu MD IMG CT PROCEDURES Final Resul t * CT Chest W Contrast (04/29/2017 1:15 PM CDT) Anatomical Region Laterality Modality Body N/A Computed Tomogra phy 04/29/2017 1:15 PM CDT Narrative 04/29/2017 1:28 PM CDT GÉNESIS BOND M.D. FINAL REPORT ACC# ??Date Time ??Exam [id number] Apr 29, 2017 08:15:[id number] Chest with contrast [id number] Apr 29, 2017 08:15:[id number] Abd ??and ??Pelvis with cont EXAMINATION: [...] BOND M.D. on Apr 29 2017 ??8:26A [id number] BOND M.D. FINAL REPORT Attending: ??BRYCE, ??EREN Requesting: ??BRYCE, ??EREN Requesting Fax: ?? Attending Fax: ?? Attending ID: ??[id number] Requesting ID: ??[id number] Report To 1 ID: ??[id number] ? Report To 1 Name: ??, ?? Report To 1 FAX: ?? NextGen Order #: ?? Procedure Note Miscellaneous, Not In File - 04/29/2017 GÉNESIS BOND M.D. FINAL REPORT ACC# Date Time Exam [id number] Apr 29, 2017 08:15:[id number] Chest with contrast [id number] Apr 29, 2017 08:15:[id number] Abd and Pelvis with cont EXAMINATION: [...] BOND M.D. on Apr 29 2017 8:26A [id number] BOND M.D. FINAL REPORT Attending: EREN WU Requesting: EREN WU Requesting Fax: Attending Fax: Attending ID: [id number] Requesting ID: [id number] Report To 1 ID: [id number] Report To 1 Name: , Report To 1 FAX: NextGen Order #: us Eren Wu MD IMG CT PROCEDURES Final Resul t documented in this encounter Visit Diagnoses Not on filedocumented in this encounter Care Teams Scutcher Tender Relationship Specialty Start Date End Date Julio César Briseno MD PCP - General 10/01/16 documented as of this encounter
--- OUTSIDE RECORDS SUMMARY | 2024-06-26 02:23 | XMS_ITS | Encounter Summary ---
Author Organization [facility] Care Team Providers Care Care Management Associate Name Role Phone Unavailable Primary Care Provider Unavailabl e Encounter Details Date Type Department Care Team (Late st Contact Info) Description 10/03/2015 5:48 AM CDT - 10/06/2015 2:05 PM CDT Hospital Encounter [facility] Jasbir Alfonso MD [id number] [place], [place] [id number] Malignant carcinoid tumor of ileum (CMS/HCC); Secondary carcinoid tumors of other sites (HCC); Allergy status to other drugs, medicaments and biological substances status; Essential (primary) hypertension; Obesity; Body mass index (BMI) of 32.0-32.9 in adult; Gastro-esophageal reflux disease without esophagitis; Hyperlipidemia; Allergic rhinitis; Osteoarthritis; Presence of artificial knee joint; Acquired absence of both cervix and uterus; 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 Surgeon: Jasbir Reeves M.D. Dictating: Laurie Saunders M.D. Service Dt: 10/03/2015 OPERATIVE REPORT Facility: [facility] ATTENDING PHYSICIAN/ATTENDING SURGEON: Jasbir Reeves M.D. FIRST FILTER HELPER: Laurie Saunders M.D. SECOND/THIRD FILTER HELPER: Shanika Rodriguez M.D. ANESTHESIA: General endotracheal anesthesia. [...] sterile fashion in dorsal lithotomy position in [facility]. Vagina had been prepped and Masterson catheter [...] and the pedicle was ligated using a azlv-jjs-mik 0 Vicryl suture. Some bleeding was noted on the right side of the pelvis. Due to this the right ureter was carefully followed and dissected away from the area of bleeding. Uterine vein was identified that was bleeding and was grasped with Allis clamps and then a nyxrjv-or-gifts suture was placed with 3-0 Vicryl. A few medium clips were also placed in order to gain hemostasis. Another area of bleeding was noted in the left pelvis that was grasped with an Allis clamp and then a 3-0 Vicryl bykxna-rq-unghu suture was placed to gain hemostasis. At [...] Laurie Saunders M.D. Jasbir Reeves M.D. PSB:silvana #[id number] Editing MT: silvana TD: 10/04/2015 10:11 AM cc: Chapito Gonzales M.D. * Op Note - Provider, MD Levon - 10/03/2015 12:00 AM CDT Patient: LA CHUNG Reg No: [id number] U H #: [id number] Admit Dt.: 10/03/2015 : 1950 Pt Type: [facility] Room No: [id number] Attending: Jasbir Reeves M.D. Surgeon: Greyson Reeves M.D. Dictating: Greyson Reeves M.D. Service Dt: 10/03/2015 OPERATIVE REPORT FACILITY: [facility] CO-SURGEON: Jasbir Reeves M.D. ANESTHESIA: General per [...] of an 80 mm JED stapler. A svjw-dc-kuzq, functional end-to-end anastomosis was created in cmlfvvwtatjaud-yt-qekcusiayqwrov fashion. Resulting enterotomy was reapproximated offsetting longitudinal [...] On 10/14/2015 07:40 AM CDT Chapito Stevens:michaelle #[id number] Editing MT: michaelle TD: 10/04/2015 05:29 PM [...] CDT SERUM CA 19-9 AG Routine 10/03/2015 7:50 AM CDT SERUM CA 125 AG Routine 10/03/2015 7:50 AM CDT PLASMA CARCINOEMBRYONIC AG (CEA) Routine 10/03/2015 7:50 AM CDT BLOOD ABO, RH, INDIRECT AB SCREEN Routine 10/03/2015 6:00 AM CDT CYTOLOGY 10/03/2015 SURGICAL PATHOLOGY 10/03/2015 documented in this encounter Results * DISCHARGE LABORATORY CUMULATIVE REPORT (10/06/2015) Narrative 10/06/2015 Ordered by an unspecified provider. Historical Provider [...] Serum magnesium (10/05/2015 11:11 PM CDT) Pathologist [facility] Magnesium 1.9 1.4 - 2.5 mg/dl HISTORICAL RESULTS Serum 10/05/2015 11:1 1 PM CDT Meagan Gallegos MD LAB BLOOD ORDERABLES Final Result Performing Organization Address City/[facility]/ZIP Co de Phone Number HISTORICAL RESULTS * (ABNORMAL) Blood cell count [CBC] express (10/05/2015 11:11 PM CDT) Pathologist [facility] WBC 10.1(H) 3.8 - 9.9 K/cumm HISTORICAL [...] metabolic panel (10/04/2015 9:27 PM CDT) Pathologist [facility] Sodium 134(L) 135 - 145 mmol/L HISTORICAL [...] BLOOD ORDERABLES Final Result Performing Organization Address [facility] de Phone Number HISTORICAL RESULTS * (ABNORMAL) Plasma phosphorus (10/04/2015 9:27 PM CDT) Pathologist [facility] Phosphorus, pl 1.6(L) 2.3 - 4.3 mg/dl HISTORICAL RESULTS Plasma 10/04/2015 9:27 PM CDT Meagan Gallegos MD LAB BLOOD ORDERABLES Final Result Performing Organization Address [facility] de Phone Number HISTORICAL RESULTS * Serum magnesium (10/04/2015 9:27 PM CDT) Pathologist [facility] Magnesium 2.3 1.4 - 2.5 mg/dl HISTORICAL RESULTS Serum 10/04/2015 9:27 PM CDT Meagan Gallegos MD LAB BLOOD ORDERABLES Final Result Performing Organization Address [facility] de Phone Number HISTORICAL RESULTS * [...] BLOOD ORDERABLES Final Result Performing Organization Address [facility] de Phone Number HISTORICAL RESULTS * [...] BLOOD ORDERABLES Final Result Performing Organization Address [facility] de Phone Number HISTORICAL RESULTS * [...] ORDERABLES Mel l Result Performing Organization Address City/[facility]/ZIP Co de Phone Number HISTORICAL RESULTS * Plasma phosphorus (10/03/2015 10:52 PM CDT) Phosphorus, pl 2.4 2.3 - 4.3 mg/dl HISTORICAL RESULTS Plasma 10/03/2015 10:5 2 PM CDT Shanika Rodriguez MD LAB BLOOD ORDERABLES Mel l Result Performing Organization Address City/[facility] Co de Phone [...] ORDERABLES Mel l Result Performing Organization Address [facility] de Phone Number HISTORICAL RESULTS * [...] ORDERABLES Mel l Result Performing Organization Address [facility] de Phone Number HISTORICAL RESULTS * [...] ORDERABLES Final Res ult Performing Organization Address City/State/[facility] [...] blood 10/03/2015 8: 21 AM CDT Result [facility] Jasbir Reeves MD LAB BLOOD ORDERABLES Final Res ult Performing Organization Address [facility] Co de Phone Number HISTORICAL RESULTS * Serum CA 19-9 ag (10/03/2015 7:50 AM CDT) CA 19-9 ag <10.0 0.0 - 36.0 Units/ml HISTORICAL RESULTS Serum 10/03/2015 7:50 AM CDT Jasbir Reeves MD LAB BLOOD ORDERABLES Final Res ult Performing Organization Address [facility]/ZIP Co de Phone Number HISTORICAL RESULTS * Plasma carcinoembryonic ag (CEA) (10/03/2015 7:50 AM CDT) CEA <1.0 0.0 - 2.5 ng/ml HISTORICAL RESULTS Comment: Interpretive Data Reference Range: ? Non-Smokers: ??0 - 2.5 ng/mL ? Smokers: ?0 - 5.0 ng/mL ?? This test was developed and its performance characterisitics determined by the [facility] in a manner consistent with CLIA requirements. This test has not been cleared or approved by the U.s. Food and Drug Administration. Current interpretive data was last revised 2011. Plasma 10/03/2015 7:50 AM CDT Jasbir Reeves MD LAB BLOOD ORDERABLES Final Res ult Performing Organization Address [facility] de Phone Number HISTORICAL RESULTS * Serum CA 125 ag (10/03/2015 7:50 AM CDT) CA 125 ag 11.8 0.0 - 30.0 Units/ml HISTORICAL RESULTS Serum 10/03/2015 7:50 AM CDT Jasbir Reeves MD LAB BLOOD ORDERABLES Final Res ult Performing Organization Address [facility] de Phone Number HISTORICAL RESULTS * Blood ABO, Rh, indirect ab screen (10/03/2015 6:00 AM CDT) Yolande, indirect Negative HISTORICAL RESULTS ABO, Rho(D) AB Positive HISTOR ICAL RESULTS Blood specimen (specimen) 10/03/2015 6:00 AM CDT Jasbir Reeves MD LAB BLOOD ORDERABLES Final Res ult Performing Organization Address [facility] de Phone Number HISTORICAL RESULTS * Surgical pathology (10/03/2015) Narrative 10/03/2015 Ordered by an unspecified provider. Historical Provider LAB PATHOLOGY ORDERABLES Final Result * Cytology (10/03/2015) Narrative 10/03/2015 Ordered by an unspecified provider. 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
--- OUTSIDE RECORDS SUMMARY | 2024-06-26 02:23 | XMS_ITS | Encounter Summary ---
Author Organization [facility] Facility Care Team Providers Care Roll Picker Name Role Phone Unavailable Primary Care Provider Unavailabl e Encounter Details Date Type Department Care Team (Latest Contact Info) Description 09/01/2015 9:48 AM SUPERVISOR BELT AND LINK ASSEMBLY - 09/01/2015 4:00 PM SUPERVISOR BELT AND LINK ASSEMBLY Hospital Encounter [facility] Jasbir Alfonso MD [address] [id number] [place] [id number] Encounter for preprocedural laboratory examination; Intra-abdominal and [...] file Legal Sex Female 2:41 PM SUPERVISOR 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 Gender Identity Not on file Sexual Orientation Straight 02/19/2021 9: 29 AM CDT documented as of this encounter Plan of Treatment Not on file documented as of this encounter Procedures Procedure Name Priority Date/Time Associated Diagnosis Comments PLASMA COMPREHENSIVE METABOLIC PANEL Routine 09/01/2015 11:32 AM SUPERVISOR BELT AND LINK ASSEMBLY BLOOD CELL COUNT Routine 09/01/2015 11:3 2 AM SUPERVISOR BELT AND LINK ASSEMBLY BLOOD ABO, RH, INDIRECT AB SCREEN Routine 09/01/2015 11:32 AM SUPERVISOR BELT AND LINK ASSEMBLY DISCHARGE LABORATORY CUMULATIVE REPORT 09/01/2015 documented in this encounter Results * (ABNORMAL) Plasma comprehensive metabolic panel (09/01/2015 11:32 AM SUPERVISOR BELT AND LINK ASSEMBLY) Sodium 140 135 - 145 mmol/L HISTORICAL [...] HISTORICAL RESULTS Plasma 09/01/2015 11:3 2 AM SUPERVISOR BELT AND LINK ASSEMBLY Babs Dominguez MUSIC AUTOGRAPHER LAB BLOOD ORDERABLES Mel l Result Performing Organization Address City/[facility] Co de Phone Number HISTORICAL RESULTS * Blood ABO, Rh, indirect ab screen (09/01/2015 11:32 AM SUPERVISOR BELT AND LINK ASSEMBLY) Yolande, indirect Negative HISTORICAL RESULTS ABO, Rho(D) AB Positive HISTOR ICAL RESULTS Blood specimen (specimen) 09/01/2015 11:32 AM SUPERVISOR BELT AND LINK ASSEMBLY Babs Dominguez MUSIC AUTOGRAPHER LAB BLOOD ORDERABLES Mel l Result Performing Organization Address [facility]/ZIP Co de Phone Number HISTORICAL RESULTS * (ABNORMAL) Blood cell count [CBC] express (09/01/2015 11:32 AM SUPERVISOR BELT AND LINK ASSEMBLY) WBC 7.9 3.8 - 9.8 K/cumm HISTORICAL [...] RESULTS Blood specimen (specimen) 09/01/2015 11:32 AM SUPERVISOR BELT AND LINK ASSEMBLY Babs Dominguez NP LAB BLOOD ORDERABLES Mel [...]
--- OUTSIDE RECORDS SUMMARY | 2024-06-26 02:23 | XMS_ITS | Encounter Summary ---
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 Hospital Encounter [facility] Bailee West MD [address] [address] Encounter for screening mammogram for malignant neoplasm of breast Social History Tobacco Use Types Packs/Day Years Used Date Smoking Tobacco: Never Assessed Comments Unknown Sex and Gender Information Value Date Recorded Sex Assigned at Not on file 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 Gender Identity Not on file Sexual Orientation Straight 02/19/2021 9: 29 AM CDT documented as of this encounter Plan of Treatment Not on file documented as of this encounter Procedures Procedure Name Priority Date/Time Associated Diagnosis Comments SCREENING MAMMOGRAM W KHANH Routine 06/29/2015 9:18 AM SHOP AND ALTERATION TAILOR documented in this encounter Results * Screening Mammogram W Khanh (06/29/2015 9:18 AM SHOP AND ALTERATION TAILOR) Anatomical Region Laterality Modality Breast N/A Mammography 06/29/2015 9:18 AM SHOP AND ALTERATION TAILOR Narrative 06/29/2015 2:28 PM SHOP AND ALTERATION TAILOR MONO WHITLOCK M.D. FINAL REPORT ACC# ??Date Time ??Exam [id number] Jun 29, 2015 09:18:00 [facility] [id number] Bilateral screen w khanh ?? Technologist(s): Linda Reza; ; EXAMINATION: ??Mammogram Technique: Bilateral Full-Field Digital Screening Mammogram and Digital Breast Tomosynthesis were performed. ??Views obtained: ??bilateral craniocaudal and bilateral mediolateral oblique. ??Computer Aided Detection of the 2D images was performed with Vend-a-Bar.3 version 9.3. Mammogram Findings: The present examination has been compared to a prior imaging study performed at [facility] on 06/28/2014. The breasts are heterogeneously dense, which may obscure small masses. There is no suspicious abnormality in either breast. IMPRESSION: ??Annual screening mammography is recommended. OVERALL FINAL ASSESSMENT: BI-RADS CATEGORY 1: ??Negative. Requested By: Dictated By: ?? MONO WHITLOCK M.D. ??on Jun 29 2015 ??2:28P This document has been electronically signed by: MONO WHITLOCK M.D. on Jun 29 2015 ??2:28P [id number] Procedure Note Provider, MD Levon - 11/01/2016 MONO WHITLOCK M.D. FINAL REPORT ACC# Date Time Exam [id number] Jun 29, 2015 09:18:00 [facility] [id number] Bilateral screen w khanh Technologist(s): Linda Reza; ; EXAMINATION: Mammogram Technique: Bilateral Full-Field Digital Screening Mammogram and Digital Breast Tomosynthesis were performed. Views obtained: bilateral craniocaudaland bilateral mediolateral oblique. Computer Aided Detection of the 2Dimages was performed with Vend-a-Bar.3 version 9.3. Mammogram Findings: The present examination has been compared to a prior imaging study performed at [facility] on 06/28/2014. The breasts are heterogeneously dense, which may obscure small masses. There is no suspicious abnormality in either breast. IMPRESSION: Annual screening mammography is recommended. OVERALL FINAL ASSESSMENT: BI-RADS CATEGORY 1: Negative. Requested By: Dictated By: MONO WHITLOCK M.D. on Jun 29 2015 2:28P This document has been electronically signed by: MONO WHITLOCK M.D. on Jun 29 2015 2:28P [id number] Historical Provider MD ALONZO MAMMO PROCEDURES Mel l Result documented in this encounter Visit Diagnoses Diagnosis Encounter for screening mammogram for malignant neoplasm of breast documented in this encounter
--- OUTSIDE RECORDS SUMMARY | 2024-06-26 02:23 | XMS_ITS | Encounter Summary ---
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 FINAL REPORT The radiology attending physician has personally reviewed this study, and has reviewed and/or edited this written report and agrees with it. ACC# ??Date Time ??Exam [id number] Nov 04, 2015 19:07:00 57081 MRI Pelvis wo&with cont [id number] Nov 04, 2015 19:07:00 79021 MRI Abdomen wwo contrast EXAMINATION: ?? MAGNETIC [...] by: FERNANDO DUBON M.D. on 2015 ??2:53P [id number] Procedure Note Provider, MD Levon - 11/01/2016 Chapito WASSERMAN M.D. FINAL REPORT The radiology attending physician has personally reviewed this study, and has reviewed and/or edited this written report and agrees with it. ACC# Date Time Exam [id number] Nov 04, 2015 19:07:00 98738 MRI Pelvis wo&with cont [id number] Nov 04, 2015 19:07:00 29433 MRI Abdomen wwo contrast EXAMINATION: MAGNETIC RESONANCE [...] by: FERNANDO DUBON M.D. on 2015 2:53P [id number] us Historical Provider MD ALONZO MRI PROCEDURES [...] agrees with it. ACC# ??Date Time ??Exam [id number] Nov 04, 2015 19:07:00 60389 MRI Pelvis wo&with cont [id number] Nov 04, 2015 19:07:00 56980 MRI Abdomen wwo contrast EXAMINATION: ?? MAGNETIC [...] agrees with it. ACC# Date Time Exam [id number] Nov 04, 2015 19:07:00 12377 MRI Pelvis wo&with cont [id number] Nov 04, 2015 19:07:00 43553 MRI Abdomen wwo contrast EXAMINATION: MAGNETIC RESONANCE [...] agrees with it. ACC# ??Date Time ??Exam [id number] Nov 04, 2015 16:17:[address] Chest with contrast EXAMINATION: ?? Computed [...] CRUZ M.D. on Nov 04 2015 ??5:25P [id number] Procedure Note Provider, MD Levon - 11/01/2016 CUATE CRUZ M.D. RACHEL FERNANDES M.D. FINAL REPORT The radiology attending physician has personally reviewed this study, and has reviewed and/or edited this written report and agrees with it. ACC# Date Time Exam [id number] Nov 04, 2015 16:17:[address] Chest with contrast EXAMINATION: Computed tomography [...] CRUZ M.D. on Nov 04 2015 5:25P [id number] us Historical Provider MD ALONZO CT PROCEDURES [...] agrees with it. ACC# ??Date Time ??Exam [id number] Nov 04, 2015 12:10:00 05246 WB Tumor Img 2+ [id number] Nov 04, 2015 12:10:00 39639 Seng Tumor Imgg [id number] Nov 04, 2015 12:10:00 Tumor Lclz: SPECT/CT Suppl 63746 EXAMINATION: ?SOMATOSTATIN-RECEPTOR SCINTIGRAPHY (WITH TOMOGRAPHIC IMAGING) ?? [...] are noted. ?? IMPRESSION: ?No evidence for xsfslvniduea-fdbsqxns-bxmeppgw tumor. ?? Requested By: Dictated By: ?? CHEKO DUMONT M.D. ??on Nov 04 2015 ??4:15P This document has been electronically signed by: TACOS CALDERA M.D. on 2015 12:22A [id number] Procedure Note Provider, MD Levon - 11/01/2016 Chapito MEDINA M.D. FINAL REPORT The radiology attending physician has personally reviewed this study, and has reviewed and/or edited this written report and agrees with it. ACC# Date Time Exam [id number] Nov 04, 2015 12:10:00 55086 WB Tumor Img 2+ [id number] Nov 04, 2015 12:10:00 42362 Seng Tumor Imgg [id number] Nov 04, 2015 12:10:00 Tumor Lclz: SPECT/CT Suppl 74839 EXAMINATION: SOMATOSTATIN-RECEPTOR SCINTIGRAPHY (WITH TOMOGRAPHIC IMAGING) DATE [...] L5-S1 are noted. IMPRESSION: No evidence for hrggxjswpaoc-zdtyejta-knlvsjgy tumor. Requested By: Dictated By: CHEKO DUMONT M.D. on Nov 04 2015 4:15P This document has been electronically signed by: TACOS CALDERA M.D. on 2015 12:22A [id number] us Historical Provider MD ALONZO NM PROCEDURES [...] agrees with it. ACC# ??Date Time ??Exam [id number] Nov 04, 2015 12:10:00 59686 WB Tumor Img 2+ [id number] Nov 04, 2015 12:10:00 79150 Seng Tumor Imgg [id number] Nov 04, 2015 12:10:00 Tumor Lclz: SPECT/CT Suppl 09940 EXAMINATION: ?SOMATOSTATIN-RECEPTOR SCINTIGRAPHY (WITH TOMOGRAPHIC IMAGING) ?? [...] are noted. ?? IMPRESSION: ?No evidence for wiejnrlixzgb-kfwosjri-xrwqqewh tumor. ?? Requested By: Dictated By: ?? CHEKO DUMONT M.D. ??on Nov 04 2015 ??4:15P This document has been electronically signed by: TACOS CALDERA M.D. on 2015 12:22A [id number] Procedure Note Provider, MD Levon - 11/01/2016 TACOS CALDERA, M.D. CHEKO OBLANC, M.D. FINAL REPORT The radiology attending physician has personally reviewed this study, and has reviewed and/or edited this written report and agrees with it. ACC# Date Time Exam [id number] Nov 04, 2015 12:10:00 50239 WB Tumor Img 2+ [id number] Nov 04, 2015 12:10:00 90214 Seng Tumor Imgg [id number] Nov 04, 2015 12:10:00 Tumor Lclz: SPECT/CT Suppl 47671 EXAMINATION: SOMATOSTATIN-RECEPTOR SCINTIGRAPHY (WITH TOMOGRAPHIC IMAGING) DATE [...] L5-S1 are noted. IMPRESSION: No evidence for dtpodjmwchot-qalknqmd-xozbffgn tumor. Requested By: Dictated By: CHEKO DUMONT M.D. on Nov 04 2015 4:15P This document has been electronically signed by: TACOS CALDERA M.D. on 2015 12:22A [id number] us Historical Provider MD ALONZO NM PROCEDURES [...] agrees with it. ACC# ??Date Time ??Exam [id number] Nov 04, 2015 12:10:00 10510 WB Tumor Img 2+ [id number] Nov 04, 2015 12:10:00 78401 Seng Tumor Imgg [id number] Nov 04, 2015 12:10:00 Tumor Lclz: SPECT/CT Suppl 75148 EXAMINATION: ?SOMATOSTATIN-RECEPTOR SCINTIGRAPHY (WITH TOMOGRAPHIC IMAGING) ?? [...] are noted. ?? IMPRESSION: ?No evidence for rbhhwlfrgaxd-pzexcikp-oeszhego tumor. ?? Requested By: Dictated By: ?? CHEKO DUMONT M.D. ??on Nov 04 2015 ??4:15P This document has been electronically signed by: TACOS CALDERA M.D. on 2015 12:22A [id number] Procedure Note Provider, MD Levon - 11/01/2016 Chapito MEDINA M.D. FINAL REPORT The radiology attending physician has personally reviewed this study, and has reviewed and/or edited this written report and agrees with it. ACC# Date Time Exam [id number] Nov 04, 2015 12:10:00 18188 WB Tumor Img 2+ [id number] Nov 04, 2015 12:10:00 99492 Seng Tumor Imgg [id number] Nov 04, 2015 12:10:00 Tumor Lclz: SPECT/CT Suppl 08408 EXAMINATION: SOMATOSTATIN-RECEPTOR SCINTIGRAPHY (WITH TOMOGRAPHIC IMAGING) DATE [...] L5-S1 are noted. IMPRESSION: No evidence for hhcdxkgztlid-rquoguhl-xzwwquws tumor. Requested By: Dictated By: CHEKO DUMONT M.D. on Nov 04 2015 4:15P This document has been electronically signed by: TACOS CALDERA M.D. on 2015 12:22A [id number] us Historical Provider MD ALONZO NM PROCEDURES [...]
--- OUTSIDE RECORDS SUMMARY | 2024-06-26 02:23 | XMS_ITS | Encounter Summary ---
Author Organization [facility] Facility Care Team Providers Care Human Resource Assistant Name Role Phone Unavailable Primary Care Provider Unavailabl e Encounter Details Date Type Department Care Team (Late st Contact Info) Description 11/03/2015 - 11/03/2015 11:59 PM CDT Hospital Encounter 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
--- OUTSIDE RECORDS SUMMARY | 2024-06-26 02:23 | XMS_ITS | Encounter Summary ---
Author Organization [facility] Care Team Providers Care Side Trimmer Name Role Phone Unavailable Primary Care Provider Unavailabl e Encounter Details Date Type Department Care Team (Late st Contact Info) Description 11/07/2015 - 11/07/2015 11:59 PM CDT Hospital Encounter [facility] Eren De Paz MD [address] [facility] [address] [place] [address] Other malignant neuroendocrine tumors (HCC) Social History Tobacco Use Types Packs/Day Years Used Date Smoking Tobacco: Never Assessed Comments Unknown Sex and Gender Information Value Date Recorded Sex Assigned at Not on file 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 Interpretive Data Testing performed by: [facility], [place] [address]. Urine 11/07/2015 6:30 AM CDT Eren Cr MD LAB BLOOD ORDERABLES Final [facility] Performing Organization Address [facility] de Phone Number HISTORICAL RESULTS * DISCHARGE LABORATORY CUMULATIVE REPORT (11/07/2015) Narrative 11/07/2015 Ordered by an unspecified provider. Historical Provider LAB BLOOD ORDERABLES Mel l Result documented in this encounter Visit Diagnoses Diagnosis Other malignant neuroendocrine tumors (HCC) documented in this encounter
--- OUTSIDE RECORDS SUMMARY | 2024-06-26 02:23 | XMS_ITS | Encounter Summary ---
Author Organization [facility] Facility Care Team Providers Care Head Loft Worker Name Role Phone Unavailable Primary Care Provider Unavailabl e Encounter Details Date Type Department Care Team (Late st Contact Info) Description 06/28/2014 - 06/28/2014 11:59 PM WOMEN'S SOCCER COACH Hospital Encounter [facility] Aft, Sunshine Davies MD PhD [address] [place] [address] Lump or mass in breast Social History [...] BREAST LIMITED Routine 06/28/2014 2:3 5 PM WOMEN'S SOCCER COACH SCREENING MAMMOGRAM W KHANH Routine 06/28/2014 2:14 PM WOMEN'S SOCCER COACH DIAGNOSTIC MAMMOGRAM 2D BILATERAL Routine 06/28/2014 2:14 PM WOMEN'S SOCCER COACH documented in this encounter Results * US Breast Limited (06/28/2014 2:35 PM WOMEN'S SOCCER COACH) Anatomical Region Laterality Modality Breast N/A Ultrasound 06/28/2014 2:35 PM WOMEN'S SOCCER COACH Narrative 06/28/2014 3:44 PM WOMEN'S SOCCER COACH ARNOLDO FERNANDES M.D. CARMITA BLEVINS, FINAL REPORT The radiology attending physician has personally reviewed this study, and has reviewed and/or edited this written report and agrees with it. ACC# ??Date Time ??Exam [id number] Jun 28, 2014 14:14:00 [facility] 21757 Diag Mammogram Bilateral ?? Technologist(s): Linda Reza; ; [id number] Jun 28, 2014 14:14:00 [facility] 30214K Bilateral Tomosynthesis ?? Technologist(s): Linda Reza; ; [id number] Jun 28, 2014 14:35:00 [facility] 79689W Sono Breast (Unilateral) L ACC# ??Date Time ??Exam [id number] Jun 28, 2014 14:14:00 [facility] 87306 Diag Mammogram Bilateral ?? Technologist(s): Linda Reza; ; [id number] Jun 28, 2014 14:14:00 [facility] 91918A Bilateral Tomosynthesis ?? Technologist(s): Linda Reza; ; [id number] Jun 28, 2014 14:35:00 [facility] 35796P Sono Breast (Unilateral) L EXAMINATION: ?? BILATERAL [...] as a part of this examination. COMPARISON: [facility] mammograms dated 06/02/2014, 05/24/2014, 05/22/2013, 05/20/2012, 05/08/2011, [...] agrees with it. ACC# Date Time Exam [id number] Jun 28, 2014 14:14:00 [facility] 14980 Diag Mammogram Bilateral Technologist(s): Linda Reza; ; [id number] Jun 28, 2014 14:14:00 [facility] 55618U Bilateral Tomosynthesis Technologist(s): Linda Reza; ; [id number] Jun 28, 2014 14:35:00 [facility] 26991N Sono Breast (Unilateral) L ACC# Date Time Exam [id number] Jun 28, 2014 14:14:00 [facility] 92068 Diag Mammogram Bilateral Technologist(s): Linda Reza; ; [id number] Jun 28, 2014 14:14:00 [facility] 47143Q Bilateral Tomosynthesis Technologist(s): Linda Reza; ; [id number] Jun 28, 2014 14:35:00 [facility] 75874K Sono Breast (Unilateral) L EXAMINATION: BILATERAL FULL [...] as a part of this examination. COMPARISON: [facility] mammograms dated 06/02/2014, 05/24/2014, 05/22/2013, 05/20/2012, 05/08/2011, [...] DIAGNOSTIC MAMMOGRAM 2D BILATERAL (06/28/2014 2:14 PM WOMEN'S SOCCER COACH) Anatomical Region Laterality Modality Breast Bilateral Mammography 06/28/2014 2:14 PM WOMEN'S SOCCER COACH Narrative 06/28/2014 3:44 PM WOMEN'S SOCCER COACH ARNOLDO FERNANDES M.D. CARMITA BLEVINS, FINAL REPORT The radiology attending physician has personally reviewed this study, and has reviewed and/or edited this written report and agrees with it. ACC# ??Date Time ??Exam [id number] Jun 28, 2014 14:14:00 [facility] 41637 Diag Mammogram Bilateral ?? Technologist(s): Linda Reza; ; [id number] Jun 28, 2014 14:14:00 [facility] 41753H Bilateral Tomosynthesis ?? Technologist(s): Linda Reza; ; [id number] Jun 28, 2014 14:35:00 [facility] 87348S Sono Breast (Unilateral) L ACC# ??Date Time ??Exam [id number] Jun 28, 2014 14:14:00 [facility] 72880 Diag Mammogram Bilateral ?? Technologist(s): Linda Reza; ; [id number] Jun 28, 2014 14:14:00 [facility] 97421E Bilateral Tomosynthesis ?? Technologist(s): Linda Reza; ; [id number] Jun 28, 2014 14:35:00 [facility] 07557B Sono Breast (Unilateral) L EXAMINATION: ?? BILATERAL [...] as a part of this examination. COMPARISON: [facility] mammograms dated 06/02/2014, 05/24/2014, 05/22/2013, 05/20/2012, 05/08/2011, [...] agrees with it. ACC# Date Time Exam [id number] Jun 28, 2014 14:14:00 [facility] 20704 Diag Mammogram Bilateral Technologist(s): Linda Reza; ; [id number] Jun 28, 2014 14:14:00 [facility] 31065C Bilateral Tomosynthesis Technologist(s): Linda Reza; ; [id number] Jun 28, 2014 14:35:00 [facility] 87886N Sono Breast (Unilateral) L ACC# Date Time Exam [id number] Jun 28, 2014 14:14:00 [facility] 93122 Diag Mammogram Bilateral Technologist(s): Linda Reza; ; [id number] Jun 28, 2014 14:14:00 [facility] 30228J Bilateral Tomosynthesis Technologist(s): Linda Reza; ; [id number] Jun 28, 2014 14:35:00 [facility] 84538F Sono Breast (Unilateral) L EXAMINATION: BILATERAL FULL [...] as a part of this examination. COMPARISON: [facility] mammograms dated 06/02/2014, 05/24/2014, 05/22/2013, 05/20/2012, 05/08/2011, [...] Screening Mammogram W Khanh (06/28/2014 2:14 PM WOMEN'S SOCCER COACH) Anatomical Region Laterality Modality Breast N/A Mammography 06/28/2014 2:14 PM WOMEN'S SOCCER COACH Narrative 06/28/2014 3:44 PM WOMEN'S SOCCER COACH ARNOLDO FERNANDES M.D. CARMITA BLEVINS, FINAL REPORT The radiology attending physician has personally reviewed this study, and has reviewed and/or edited this written report and agrees with it. ACC# ??Date Time ??Exam [id number] Jun 28, 2014 14:14:00 [facility] 18931 Diag Mammogram Bilateral ?? Technologist(s): Linda Reza; ; [id number] Jun 28, 2014 14:14:00 [facility] 43193H Bilateral Tomosynthesis ?? Technologist(s): Linda Reza; ; [id number] Jun 28, 2014 14:35:00 [facility] 57950T Sono Breast (Unilateral) L ACC# ??Date Time ??Exam [id number] Jun 28, 2014 14:14:00 [facility] 98742 Diag Mammogram Bilateral ?? Technologist(s): Linda Reza; ; [id number] Jun 28, 2014 14:14:00 [facility] 00276V Bilateral Tomosynthesis ?? Technologist(s): Linda Reza; ; [id number] Jun 28, 2014 14:35:00 [facility] 67786X Sono Breast (Unilateral) L EXAMINATION: ?? BILATERAL [...] as a part of this examination. COMPARISON: [facility] mammograms dated 06/02/2014, 05/24/2014, 05/22/2013, 05/20/2012, 05/08/2011, [...] agrees with it. ACC# Date Time Exam [id number] Jun 28, 2014 14:14:00 [facility] 58782 Diag Mammogram Bilateral Technologist(s): Linda Reza; ; [id number] Jun 28, 2014 14:14:00 [facility] 09180E Bilateral Tomosynthesis Technologist(s): Linda Reza; ; [id number] Jun 28, 2014 14:35:00 [facility] 17308G Sono Breast (Unilateral) L ACC# Date Time Exam [id number] Jun 28, 2014 14:14:00 [facility] 20281 Diag Mammogram Bilateral Technologist(s): Linda Reza; ; [id number] Jun 28, 2014 14:14:00 [facility] 32828T Bilateral Tomosynthesis Technologist(s): Linda Reza; ; [id number] Jun 28, 2014 14:35:00 [facility] 92125A Sono Breast (Unilateral) L EXAMINATION: BILATERAL FULL [...] as a part of this examination. COMPARISON: [facility] mammograms dated 06/02/2014, 05/24/2014, 05/22/2013, 05/20/2012, 05/08/2011, [...]
--- OUTSIDE RECORDS SUMMARY | 2024-06-26 02:23 | XMS_ITS | Encounter Summary ---
Author Organization [facility] Facility Care Team Providers Care Cloth Doubling Machine Operator Name Role Phone Unavailable Primary Care Provider Unavailabl e Encounter Details Date Type Department Care Team (Late st Contact Info) Description 08/24/2015 - 08/24/2015 11:59 PM FINANCIAL SALES CONSULTANT Hospital Encounter [facility] Burton MD [phone] [place] [id number] Social History Tobacco Use Types Packs/Day Years Used Date Smoking Tobacco: Never Assessed Comments Unknown Sex and Gender Information Value Date Recorded Sex Assigned at Not on file Legal Sex Female 2:41 PM FINANCIAL SALES CONSULTANT Gender Identity Not on file Sexual Orientation Straight 02/19/2021 9: 29 AM CDT documented as of this encounter Plan of Treatment Not on file documented as of this encounter Procedures Procedure Name Priority Date/Time Associated Diagnosis Comments XR CONSULT OF OUTSIDE FILMS (PEDS ONLY) Routine 08/24/2015 12:32 PM FINANCIAL SALES CONSULTANT CLINICAL IMAGE Routine 08/17/2015 9:17 AM FINANCIAL SALES CONSULTANT documented in this encounter Results * XR Interpretation Of Outside Films (08/24/2015 12:32 PM FINANCIAL SALES CONSULTANT) Anatomical Region Laterality Modality N/A Radiographic Gabbie ging 08/24/2015 12:3 2 PM FINANCIAL SALES CONSULTANT Narrative 08/24/2015 3:29 PM FINANCIAL SALES CONSULTANT KELECHI ZEPEDA D.O. KELECHI ZEPEDA D.O. FINAL REPORT The radiology attending physician has personally reviewed this study, and has reviewed and/or edited this written report and agrees with it. ACC# ??Date Time ??Exam [id number] Aug 24, 2015 12:32:00 [id number] [facility] Body CT Consult ACC# ??Date Time ??Exam [id number] Aug 24, 2015 12:32:00 [id number] [facility] Body CT Consult EXAMINATION: ?? RADIOLOGY CONSULTATION ON OUTSIDE IMAGING STUDY STUDY INITIALLY PERFORMED: ??08/17/2015 at [facility]. TYPE OF STUDY: Multiple CT images of [...] images may or may not represent the [place] source data set and thus may contain changes that may lower the accuracy of this second-opinion interpretation. ?? Requested By: Dictated By: ?? KELECHI ZEPEDA D.O. ??on Aug 24 2015 ??2:49P This document has been electronically signed by: KELECHI ZEPEDA D.O. on Aug 24 2015 ??3:29P [id number] Procedure Note Provider, MD Levon - 11/01/2016 KELECHI ZEPEDA D.O. KELECHI ZEPEDA D.O. FINAL REPORT The radiology attending physician has personally reviewed this study, and has reviewed and/or edited this written report and agrees with it. ACC# Date Time Exam [id number] Aug 24, 2015 12:32:00 [id number] [facility] Body CT Consult ACC# Date Time Exam [id number] Aug 24, 2015 12:32:00 [id number] [facility] Body CT Consult EXAMINATION: RADIOLOGY CONSULTATION ON OUTSIDE IMAGING STUDY STUDY INITIALLY PERFORMED: 08/17/2015 at [facility]. TYPE OF STUDY: Multiple CT images of [...] images may or may not represent the [place] source data set and thus may contain changes that may lower the accuracy of this second-opinion interpretation. Requested By: Dictated By: KELECHI ZEPEDA D.O. on Aug 24 2015 2:49P This document has been electronically signed by: KELECHI ZEPEDA D.O. on Aug 24 2015 3:29P [id number] us Historical Provider IMG XR PROCEDURES Final R esult * Clinical Image (08/17/2015 9:17 AM FINANCIAL SALES CONSULTANT) 08/17/2015 9:17 AM FINANCIAL SALES CONSULTANT us Historical Provider NURSING COMMUNICATION Fin al Result HISTORICAL RESULTS documented in this encounter Visit Diagnoses Not on filedocumented in this encounter
== END 2024-06-21 16:21 | disposition home or self-care (01) ==
PROVIDERS: Emergency Provider Emergency Medicine; PCP Internal Medicine
DX: S09.93XA Unspecified injury of face, initial encounter (principal); I95.1 Orthostatic hypotension; C7A.8 Other malignant neuroendocrine tumors; E87.6 Hypokalemia; E78.00 Pure hypercholesterolemia, unspecified; I10 Essential (primary) hypertension; G62.9 Polyneuropathy, unspecified; Z79.899 Other long term (current) drug therapy; Z79.60 Long term (current) use of unspecified immunomodulators and immunosuppressants; W18.39XA Other fall on same level, initial encounter
CPT/HCPCS: 36415; 70450; 80053; 83690; 83735; 85025; 85055; 96361; 96374; 99284; A9270; J2405; J7030